=== PATIENT | male | born 1955 | race Caucasian/White ===

== ENCOUNTER 2019-04-03 19:37 | Inpatient (IN) | payer SELFPAY ==
--- OUTSIDE RECORDS SUMMARY | 2019-04-03 19:40 | XMS REPORT ---
:1955 [facility] Organization [facility] Address [address] [place] [address] [address] [place] [address] Care Team Providers Name Role Phone Unavailable Unavailable Unavailable Problems This patient has no known problems. Allergies, Adverse Reactions, Alerts This patient has no known allergies or adverse reactions. Medications This patient has no known medications.
[2019-04-03] MEDS ORDERED: MORPHINE 4 MG/ML SYR ONE (20:32)
[2019-04-03] MEDS ORDERED: NA CHLORIDE 0.9% 500 ML ONE (20:32)
[2019-04-03 22:02] LABS: Absolute Lymphocytes (CBC) 0.8 K/uL (0.7-4.9); Basophils % 0.5 % (0-1.3); Hematocrit 32.8 % (39.6-49.0); Lymphocytes % 8.5 % (15.3-44.8); MPV 10.7 fL (7.6-11.3)
--- NOTE | 2019-04-03 22:02 | EDPHYS ---
Physician Documentation [facility] Name: Mumtaz Anderson Age: 64 yrs Sex: Male : 1955 Arrival Date: 04/03/2019 Time: 19:40 Bed 17 Private MD: ED Physician Homer Dang HPI: 04/03 20:25 This 64 yrs old Male presents to ER via Wheelchair with complaints of Leg cp Injury, Hip Injury. 20:25 The patient presents with decreased range of motion, an injury, pain, that is acute. cp The complaints affect the pelvis and left hip. Context: The problem was sustained at home, resulted from the patient falling, the patient is not able to bear weight, uses a walker, Problem is a result from a previous injury: No. Onset: The symptoms/episode began/occurred yesterday. Associated signs and symptoms: Pertinent negatives numbness, LOC. Patient reports he lost his balance while using his walker yesterday. Now having left hip pain and unable to bear weight. Historical: - Allergies: 19:53 "nexia d"; aj1 - Home Meds: 19:53 Patient is not currently taking any of his medications [Active]; aj1 - PMHx: 19:53 Diabetes - NIDDM; Hyperlipidemia; Myocardial infarction; aj1 - Immunization history:: Flu vaccine is not up to date. - Social history:: Smoking status: Patient uses tobacco products, smokes three packs cigarettes per day. - Ebola Screening: : Patient denies travel to an Ebola-affected area in the 21 days before illness onset. ROS: 20:30 Constitutional: Negative for body aches, chills, fever, poor PO intake. cp 20:30 Eyes: Negative for injury, pain, redness, and discharge. cp 20:30 ENT: Negative for drainage from ear(s), ear pain, sore throat, difficulty swallowing, difficulty handling secretions. 20:30 Cardiovascular: Negative for chest pain, palpitations. 20:30 Respiratory: Negative for cough, shortness of breath, wheezing. 20:30 Abdomen/GI: Negative for abdominal pain, nausea, vomiting, and diarrhea. 20:30 Back: Negative for pain at rest, pain with movement. 20:30 MS/extremity: Positive for decreased range of motion, pain, tenderness, of the left hip, Negative for deformity, paresthesias. 20:30 Skin: Negative for rash. 20:30 Neuro: Negative for altered mental status, dizziness, headache, numbness, syncope, weakness. 20:30 All other systems are negative. Exam: 20:35 Constitutional: The patient appears in no acute distress, alert, awake, cp non-diaphoretic, non-toxic, well developed, well nourished. 20:35 Head/Face: Normocephalic, atraumatic. cp 20:35 Eyes: Periorbital structures: appear normal, Pupils: equal, round, and reactive to light and accomodation, Extraocular movements: intact throughout, Conjunctiva: normal, no exudate, no injection, Sclera: no appreciated abnormality, Lids and lashes: appear normal, bilaterally. 20:35 ENT: External ear(s): are unremarkable, Nose: is normal, Mouth: is normal, Posterior pharynx: is normal, airway is patent, no erythema, no exudate. 20:35 Neck: C-spine: vertebral tenderness, is not appreciated, crepitus, is not appreciated, ROM/movement: is normal, is supple, without pain, no range of motions limitations, no nuchal rigidity. 20:35 Chest/axilla: Inspection: normal, Palpation: is normal, no crepitus, no tenderness. 20:35 Cardiovascular: Rate: normal, Rhythm: regular, Pulses: Pulses are 2+ in right radial artery, right dorsalis pedis artery, left radial artery and left dorsalis pedis artery. Edema: is not appreciated, JVD: is not appreciated. 20:35 Respiratory: the patient does not display signs of respiratory distress, Respirations: normal, no use of accessory muscles, no retractions, no splinting, no tachypnea, labored breathing, is not present, Breath sounds: are clear throughout, no decreased breath sounds, no stridor, no wheezing. 20:35 Abdomen/GI: Inspection: abdomen appears normal, Bowel sounds: active, all quadrants, Palpation: abdomen is soft and non-tender, in all quadrants, rebound tenderness, is not appreciated, voluntary guarding, is not appreciated, involuntary guarding, is not appreciated. 20:35 Back: pain, is absent, vertebral tenderness, is not appreciated. 20:35 Musculoskeletal/extremity: ROM: limited passive range of motion due to pain, in the left hip, Joints: All joints are normal except the left hip displays painful range of motion, tenderness. 20:35 Skin: no rash present. 20:35 Neuro: Orientation: to person, place \\T\\ time. Mentation: is normal, Cerebellar function: is grossly normal, Motor: moves all fours, strength is normal, Sensation: is normal. 21:45 ECG was reviewed by the Attending Physician. cp Vital Signs: 19:53 BP 132 / 68; Pulse 96; Resp 18; Temp 98.9; Pulse Ox 99% on R/A; Weight 68.04 kg (R); aj1 Pain 6/10; 20:40 BP 142 / 89; Pulse 89; Resp 18; Pulse Ox 99% ; wh 22:01 BP 140 / 108; Pulse 81; Resp 18; Pulse Ox 99% ; wh 23:00 BP 129 / 73; Pulse 82; Resp 18; Pulse Ox 99% on R/A; wh MDM: 20:00 Patient medically screened. cp 21:20 Data reviewed: vital signs, nurses notes, radiologic studies, plain films. cp 21:20 Differential diagnosis: dislocation, closed fracture, contusion, multiple trauma. Test cp interpretation: by ED physician or midlevel provider: plain radiologic studies, xrays left hip show subcapital fracture. 21:40 Physician consultation: Matthew Michelle DO was called at 21:45, was contacted at 21:45, regarding admission, to the telemetry unit. patient's condition. 22:07 Physician consultation: Geremias Mart MD was called at 22:07, was contacted at 22:07, regarding consult, patient's condition, would like admission per Dr. Matthew Michelle DO. 04/03 21: Order name: Basic Metabolic Panel; Complete Time: 22:24 cp 04/03 22:25 Interpretation: Normal except: K 3.0; GLUC 364; CRE 1.44; GFR 50; CA 7.6. cp 04/03 21:22 Order name: CBC with Diff cp 04/03 22:16 Interpretation: Normal except: HGB 10.5; HCT 32.8; MCV 64.2; MCH 20.5; MCHC 31.9; RDW cp 16.5; BEST% 83.2; LYM% 8.5. 04/03 21: Order name: LFT's; Complete Time: 22:24 cp 04/03 21:22 Order name: Magnesium; Complete Time: 22:24 cp 04/03 21:22 Order name: NT PRO-BNP; Complete Time: 22:24 cp 04/03 22:24 Interpretation: Abnormal: NT PRO-BNP 28551. cp 04/03 21:22 Order name: PT-INR; Complete Time: 22:16 cp 20 20:18 Order name: XRAY Pelvis 04/03 20:18 Order name: XRAY Hip LEFT 2 view 04/03 21:11 Order name: Chest Single View EDME 04/03 21:22 Order name: Troponin (emerg Dept Use Only); Complete Time: 22:24 cp 04/03 22:16 Order name: XRAY Femur LEFT 04/03 23:08 Order name: CBC Smear Scan EDME 04/03 20:18 Order name: IV; Complete Time: 20:35 cp 04/03 21:22 Order name: EKG; Complete Time: 21:23 cp 04/03 21:22 Order name: Cardiac monitoring; Complete Time: 21:46 cp 04/03 21:22 Order name: EKG - Nurse/Tech; Complete Time: 21:46 cp 04/03 21:22 Order name: Labs collected and sent; Complete Time: 21:46 cp 04/03 21:22 Order name: O2 Per Protocol; Complete Time: 21:46 cp 04/03 21:22 Order name: O2 Sat Monitoring; Complete Time: 21:46 cp 04/03 21:22 Order name: Holcomb; Complete Time: 22:35 cp EC:45 Rate is 85 beats/min. Rhythm is regular. [place] interval is prolonged at 216 msec. QRS cp interval is prolonged at 148 msec. QT interval is normal. Interpreted by me. Reviewed by me. Administered Medications: 20:35 Drug: NS 0.9% 500 ml Route: IV; Rate: bolus; Site: right forearm; 21:23 Follow up: Response: No adverse reaction; IV Status: Completed infusion 20:35 Drug: morphine 4 mg {Note: RASS 0.} Route: IVP; Site: right forearm; 21:23 Follow up: Response: No adverse reaction; Pain is decreased; RASS: Alert and Calm (0) 22:48 Drug: Insulin Regular Human 10 units {Co-Signature: jb4 (Armaan Warba RN).} Route: IVP; Site: right forearm; 23:30 Follow up: Response: No adverse reaction Disposition: 04/03/19 22:01 Hospitalization ordered by Matthew Michelle for Inpatient Admission. Preliminary diagnosis is Left hip fracture. - Bed requested for Telemetry/MedSurg (Inpatient). - Status is Inpatient Admission. - Condition is Stable. - Problem is new. - Symptoms have improved. UTI on Admission? No Addendum: 04/06/2019 09:18 Co-signature as Attending Physician, Homer Dang MD I agree with the assessment and c pérez plan of care. Signatures: Dispatcher [employer] EDLianna Herrera RN RN aj1 Homer Dang MD MD cha Page, Corey, PA PA cp Lynnette Garcia RN RN AnaisgloriaLiset Armaan Rowan RN jb4 Corrections: (The following items were deleted from the chart) 04/03 22:17 22:01 Hospitalization Ordered by Matthew Michelle DO for Inpatient Admission. Preliminary cg diagnosis is Left hip fracture. Bed requested for Telemetry/MedSurg (Inpatient). Status is Inpatient Admission. Condition is Stable. Problem is new. Symptoms have improved. UTI on Admission? No. cp 22:25 22:24 Normal except: K 3.0; GLUC 364; CRE 1.44; GFR 50. cp cp 22:31 22:17 04/03/2019 22:01 Hospitalization Ordered by Matthew Michelle DO for Inpatient Admission. Preliminary diagnosis is Left hip fracture. Bed requested for Telemetry/MedSurg (Inpatient). Status is Inpatient Admission. Condition is Stable. Problem is new. Symptoms have improved. UTI on Admission? No. cg 23:36 22:31 04/03/2019 22:01 Hospitalization Ordered by Matthew Michelle DO for Inpatient Admission. Preliminary diagnosis is Left hip fracture. Bed requested for Telemetry/MedSurg (Inpatient). Status is Inpatient Admission. Condition is Stable. Problem is new. Symptoms have improved. UTI on Admission? No. cg
--- NOTE | 2019-04-03 22:02 | ER ---
Nurse's Notes [facility] Name: Mumtaz Anderson Age: 64 yrs Sex: Male : 1955 Arrival Date: 04/03/2019 Time: 19:40 Bed 17 Private MD: Diagnosis: Left hip fracture Presentation: 04/03 19:49 Presenting complaint: Patient states: He fell last night twice and landed on his left aj1 side both times. Reports pain to left hip. Reports that he hit his head on the wall. Patient does not take blood thinners. Denies LOC, vomiting. Transition of care: patient was not received from another setting of care. Onset of symptoms was March 2019. Risk Assessment: Do you want to hurt yourself or someone else? Patient reports no desire to harm self or others. Initial Sepsis Screen: Does the patient meet any 2 criteria? No. Patient's initial sepsis screen is negative. Does the patient have a suspected source of infection? No. Patient's initial sepsis screen is negative. Care prior to arrival: None. 19:49 Method Of Arrival: Wheelchair aj1 19:49 Acuity: VIDAL 3 aj1 Triage Assessment: 19:53 General: Appears in no apparent distress. uncomfortable, Behavior is calm, cooperative, aj1 appropriate for age. Pain: Complains of pain in left hip Pain currently is 6 out of 10 on a pain scale. Neuro: Level of Consciousness is awake, alert, obeys commands. Cardiovascular: Patient's skin is warm and dry. Respiratory: Airway is patent Respiratory effort is even, unlabored, Respiratory pattern is regular, symmetrical. Musculoskeletal: Range of motion: limited in left hip. Injury Description: Patient reports that he fell twice last night. Historical: - Allergies: 19:53 "nexia d"; aj1 - Home Meds: 19:53 Patient is not currently taking any of his medications [Active]; aj1 - PMHx: 19:53 Diabetes - NIDDM; Hyperlipidemia; Myocardial infarction; aj1 - Immunization history:: Flu vaccine is not up to date. - Social history:: Smoking status: Patient uses tobacco products, smokes three packs cigarettes per day. - Ebola Screening: : Patient denies travel to an Ebola-affected area in the 21 days before illness onset. Screenin:17 Abuse screen: Denies threats or abuse. Denies injuries from another. Nutritional wh screening: No deficits noted. Tuberculosis screening: No symptoms or risk factors identified. Fall Risk Fall in past 12 months (25 points). Assessment: 20:38 General: Appears in no apparent distress. Behavior is calm, cooperative, appropriate wh for age. Pain: Complains of pain in left hip Pain does not radiate. Pain currently is 10 out of 10 on a pain scale. Quality of pain is described as aching, Pain began 1 day ago. Pain: Aggravated by increased activity. Neuro: Level of Consciousness is awake, alert, obeys commands, Oriented to person, place, time, situation, Appropriate for age Transfusion Aide are equal bilaterally. Cardiovascular: Heart tones S1 S2 Capillary refill < 3 seconds. Respiratory: Airway is patent Respiratory effort is even, unlabored, Respiratory pattern is regular, symmetrical. GI: Abdomen is flat, non-distended, Bowel sounds present X 4 quads. : No signs and/or symptoms were reported regarding the genitourinary system. EENT: No signs and/or symptoms were reported regarding the EENT system. Derm: Skin is intact, is healthy with good turgor, Skin is pink, warm \\T\\ dry. normal. Musculoskeletal: Circulation, motion, and sensation intact. Range of motion: limited in left hip. 21:58 Reassessment: Patient appears in no apparent distress at this time. No changes from previously documented assessment. Patient and/or family updated on plan of care and expected duration. Pain level reassessed. Patient is alert, oriented x 3, equal unlabored respirations, skin warm/dry/pink. Notified Pt of admission orders. 23:00 Reassessment: Patient appears in no apparent distress at this time. No changes from previously documented assessment. Patient and/or family updated on plan of care and expected duration. Pain level reassessed. Patient is alert, oriented x 3, equal unlabored respirations, skin warm/dry/pink. Vital Signs: 19:53 BP 132 / 68; Pulse 96; Resp 18; Temp 98.9; Pulse Ox 99% on R/A; Weight 68.04 kg (R); aj1 Pain 6/10; 20:40 BP 142 / 89; Pulse 89; Resp 18; Pulse Ox 99% ; wh 22:01 BP 140 / 108; Pulse 81; Resp 18; Pulse Ox 99% ; wh 23:00 BP 129 / 73; Pulse 82; Resp 18; Pulse Ox 99% on R/A; ED Course: 19:40 Patient arrived in ED. cl3 19:52 Triage completed. aj1 19:53 Arm band placed on Patient placed in an exam room. aj1 19:55 Liset Valente is Primary Nurse. wh 19:56 Homer Colon PA is PHCP. cp 19:56 Homer Dang MD is Attending Physician. cp 20:17 Patient has correct armband on for positive identification. Placed in gown. Bed in low wh position. Call light in reach. Side rails up X 1. Pulse ox on. NIBP on. 20:36 Inserted saline lock: 20 gauge in right forearm, using aseptic technique. Blood wh collected. 20:57 X-ray completed. Patient tolerated procedure well. Patient moved back from radiology. 1 20:58 XRAY Pelvis In Process Unspecified. EDMS 20:58 XRAY Hip LEFT 2 view In Process Unspecified. EDMS 21:28 Chest Single View In Process Unspecified. EDMS 21:58 Matthew Michelle DO is Hospitalizing Provider. cp 23:00 Holcomb cath inserted, using sterile technique, 18 Fr., by ok, balloon inflated, to gravity drainage. 23:34 No provider procedures requiring assistance completed. Patient admitted, IV remains in place. Administered Medications: 20:35 Drug: NS 0.9% 500 ml Route: IV; Rate: bolus; Site: right forearm; 21:23 Follow up: Response: No adverse reaction; IV Status: Completed infusion 20:35 Drug: morphine 4 mg {Note: RASS 0.} Route: IVP; Site: right forearm; 21:23 Follow up: Response: No adverse reaction; Pain is decreased; RASS: Alert and Calm (0) 22:48 Drug: Insulin Regular Human 10 units {Co-Signature: jb4 (Armaan Rowan RN).} Route: IVP; Site: right forearm; 23:30 Follow up: Response: No adverse reaction Outcome: 22:01 Decision to Hospitalize by Provider. cp 23:35 Admitted to Med/surg accompanied by tech, family with patient, via stretcher, room 206, with chart, Report called to Ting Pruett RN 23:35 Condition: good 23:35 Instructed on the need for admit. 23:36 Patient left the ED. Signatures: Dispatcher [employer] Lianna Gonzalez RN RN aj1 Torri Mondragon mh1 Homer Colon PA PA cp Habalo, Winsy wh Lewis, Charde cl3 Armaan Rowan RN jb4
[2019-04-03 22:03] LABS: Protime INR 0.91
[2019-04-03 22:16] LABS: ALT/SGPT 12 U/L (12-78); AST/SGOT 14 U/L (15-37); Albumin 1.5 g/dL (3.4-5.0); Alkaline Phosphatase 78 U/L (45-117); BUN Blood Urea Nitrogen 18 mg/dL (7-18); Bicarbonate 28 mmol/L (21-32); Bilirubin Direct < 0.1 mg/dL (0-0.2); Bilirubin Total 0.2 mg/dL (0.2-1.0); Glucose Level 364 mg/dL (74-106); NT PRO-BNP 15025 pg/mL (<125); Protein, Total 5.1 g/dL (6.4-8.2); Sodium Level 136 mmol/L (136-145); Troponin (Emerg Dept Use Only) 0.03 ng/mL (0.0-0.045)
--- NOTE | 2019-04-03 22:16 | P.HP ---
Certification for Inpatient Patient admitted to: Inpatient With expected LOS: >2 Midnights Patient will require the following post-hospital care: Rehabilitation Practitioner: I am a practitioner with admitting privileges, knowledge of patient current condition, hospital course, and medical plan of care. Services: Services provided to patient in accordance with Admission requirements found in Title 42 Section 412.3 of the Code of Federal Regulations Patient History Date of Service: 04/03/19 Primary Care Provider: None Reason for admission: Fall with left hip pain History of Present Illness: 64-year-old male presented to the emergency room after a fall and left hip pain. Patient with history of CAD, hypertension, diabetes mellitus type 2 insulin dependent, tobacco abuse, hyperlipidemia, and COPD. Patient reports that he fell twice yesterday. This is after he got dizzy and lost his balance. He fell to the ground and got up. He primarily uses a walker to get around. Today he fell again. He had extreme pain to the left hip. He came to the ER for further evaluation. In the ER patient evaluated. X-ray revealed left subcapital hip fracture. Lab- CMP, CBC pending at this time. Patient was admitted for further evaluation and treatment. When I saw the patient ER, pain improved with medication. Patient with history of CAD. Son reports that he was evaluated at [facility] last year. He was told that he had CAD and that would require stenting or cardiac bypass. It appears that the patient never followed up. No procedure was done. Patient admits not taking his medication. Patient is supposed to be taking aspirin, Plavix, Lipitor, carvedilol, Lasix, and lisinopril. He does take some insulin from time to time. He has not followed up with a PCP. Patient still smokes about 2 packs per day. Allergies "nexia d" Allergy (Uncoded 10/23/16 02:05) Unknown Home medications list reviewed: Yes Home Medications: Glyburide 1 tab PO DAILY 11/04/16 Metformin ER [Glucophage ER] 500 mg PO DAILY 11/04/16 Amlodipine [Norvasc*] 5 mg PO DAILY #30 tab 11/08/16 Glyburide/Metformin HCl [Glucovance 5-500 mg Tablet] 1 each PO BID #60 tablet NaCl 0.9% Irr Soln [Sodium Chloride] 0 ml IRR DAILY #1 btl 11/10/16 - Past Medical/Surgical History Diabetic: Yes -: Diabetes mellitus type 2, insulin-dependent -: CAD -: Hypertension -: Hyperlipidemia -: COPD -: Tobacco abuse -: Knee surgery -: I&D lower right buttock -: hiatal hernia repair -: I and D to the left foot Psychosocial/ Personal History: Patient is single. He lives with his son. - Family History Father -: Heart disease, Hypertension, Lung disease, GI disease, Diabetes, Cancer, Other (see notes) Notes: parkinson's disease Mother -: Heart disease, Hypertension, Diabetes, Cancer Sister -: Cancer - Social History Smoking Status: Heavy Tobacco smoker (>10 cigarettes/day) Counseled patient to stop smoking for: less than 10 minutes Smoking therapy provided: Yes Patient receptive to therapy: No Alcohol use: No CD- Drugs: No Caffeine use: Yes Place of Residence: Home Review of Systems General: As per HPI Eyes: Unremarkable ENT: Unremarkable Respiratory: Unremarkable Cardiovascular: Light Headedness, As per HPI Gastrointestinal: Unremarkable Genitourinary: Unremarkable Musculoskeletal: As per HPI Integumentary: Unremarkable Neurological: Unremarkable Lymphatics: Unremarkable Physical Examination - Physical Exam General: Alert, In no apparent distress, Oriented x3, Cooperative HEENT: Atraumatic, Normocephalic, PERRLA, Mucous membr. moist/pink Neck: Supple, No Thyromegaly Respiratory: Clear to auscultation bilaterally, Normal air movement Cardiovascular: Normal pulses, Regular rate/rhythm Gastrointestinal: Normal bowel sounds, Soft and benign, Non-distended, No ascites, No tenderness, No masses, No rebound, No guarding Musculoskeletal: No warmth, Other (Pain to the left hip region but stable, leg externally rotated) Neurological: Normal speech, Normal strength at 5/5 x4 extr, Normal tone, Normal affect Assessment and Plan - Plan Impression: Fall leading to left subcapital femur fracture CAD Hypertension Diabetes mellitus type 2, insulin-dependent Hyperlipidemia COPD Tobacco abuse Noncompliance with medication and follow up Plan: Fall leading to left subcapital femur fracture: Patient will be admitted for further evaluation and treatment. Orthopedic consulted to further treat. Patient will require surgical intervention. Will consult cardiology for cardiac clearance. Will provide medication for pain. Will DVT prophylaxis tonight as the patient will likely have surgery tomorrow. Will also hold his aspirin and Plavix in preparation for surgery tomorrow. Will keep the patient NPO after midnight. Advanced directives addressed in detail with patient and son present. Patient is DNR. Patient will likely require rehab after surgery. Daytime hospitalist to continue his care. Anticipate discharge to rehab in the next 5-7 days. CAD: Patient reports history of CAD. He was told in the past that the patient would require cardiac intervention. Workup done at [facility] over a year ago. Will obtain more information from [facility]. Cardiology consulted for cardiac clearance. Hypertension: Patient non compliant with his medication. Will restart carvedilol 12.5 mg 1 pill twice daily and lisinopril 5 mg daily. Will monitor and adjust appropriately. Diabetes mellitus type 2, insulin-dependent: Will check A1c. Will provide insulin sliding scale and monitor Accu-Cheks. Hyperlipidemia: Restart home medication of Lipitor 80 mg daily. COPD: Patient likely has COPD. Will start COPD medication-Brovana/albuterol/ Atrovent. Maintain sats above 93%. Tobacco abuse: Tobacco cessation addressed in detail. Patient does not plan to quit. Provide nicotine patch. Noncompliance with medication and follow up: Patient will need to establish care with a PCP after discharge. Compliance with medication addressed in detail. Discharge Plan: Other (Inpatient rehab) Plan to discharge in: Greater than 2 days - Advance Directives Does patient have a Living Will: No Does patient have a Durable POA for Healthcare: No - Code Status/Comfort Care Code Status Assessed: Yes (Patient is do not resuscitate. Son aware of patient wishes) Time Spent Managing Pts Care (In Minutes): 55
[2019-04-03] MEDS ORDERED: INSULIN -REGULAR HUMAN 50 UNIT/0.5 ML ML ONE (22:47)
[2019-04-03 23:07] LABS: Blood Morphology Comment NOTED (NOT SEEN); Hypochromasia 1+; Platelet Estimate ADEQ; Urine White Blood Cell Casts OK
[2019-04-03] MEDS ORDERED: ALBUTEROL 2.5 MG/3 ML NEB SOL NEB PRN (23:20)
[2019-04-03] MEDS ORDERED: HYDROCODONE/APAP 7.5/325 MG TAB PO PRN (23:20)
[2019-04-03] MEDS ORDERED: ACETAMINOPHEN 500 MG TAB PO PRN (23:20)
[2019-04-03 23:52] VITALS: BMI 20.7
[2019-04-04] MEDS: NICOTINE 21 MG/PAT TD SCH ×2 (00:16→08:49)
[2019-04-04 01:27] LABS: Urine Appearance CLOUDY; Urine Blood 2+ (NEG); Urine Color DK YELLOW; Urine Glucose 3+ (NEG); Urine Protein 3+ (NEG); Urine Specific Gravity >=1.030 (1.005-1.030); Urine Urobilinogen 0.2 mg/dL (0.2-1.0)
[2019-04-04 01:35] LABS: Urine Microscopic Reflex ORDER UMIC
[2019-04-04 01:38] LABS: Urine Bilirubin NEGATIVE (NEG)
[2019-04-04 03:36] LABS: Urine Bacteria >50 /HPF (NONE SEEN); Urine Culture Reflex Order REFLEXED
[2019-04-04] MEDS: ONDANSETRON 4 MG/2 ML VIAL IV PRN (05:00)
[2019-04-04] MEDS: CARVEDILOL 12.5 MG TAB PO SCH ×2 (05:34→17:28)
[2019-04-04] MEDS: MORPHINE 2 MG/ML SYR IV PRN (05:34)
[2019-04-04 05:53] LABS: Absolute Lymphocytes (CBC) 1.2 K/uL (0.7-4.9); Basophils % 0.7 % (0-1.3); Hematocrit 30.9 % (39.6-49.0); Lymphocytes % 14.6 % (15.3-44.8); MPV 9.6 fL (7.6-11.3); RBC Red Blood Cell Count 4.92 M/uL (4.33-5.43)
[2019-04-04 06:49] LABS: Ferritin 1426.5 ng/mL (26-388); Magnesium 1.9 mg/dL (1.8-2.4); Thyroid Stimulating Hormone 2.78 uIU/mL (0.360-3.740)
[2019-04-04 07:00] LABS: Potassium 2.8 mmol/L (3.5-5.1)
[2019-04-04] MEDS: ARFORMOTEROL TARTRATE 15 MCG/2 ML VIAL.NEB NEB SCH ×2 (07:35→20:05)
[2019-04-04] MEDS: LISINOPRIL 5 MG TAB PO SCH (08:23)
[2019-04-04] MEDS: FAMOTIDINE 20 MG TAB PO SCH ×2 (08:23→21:42)
[2019-04-04] MEDS: FUROSEMIDE 20 MG TABLET PO SCH (08:23)
[2019-04-04] MEDS ORDERED: NA CHLORIDE 0.9% 250 ML ONE (08:37)
[2019-04-04] MEDS: KCL 20 MEQ/100 mL IVPB 20 MEQ/100 ML BAG IV SCH ×3 (08:48→12:40)
[2019-04-04] MEDS: INSULIN -REGULAR HUMAN 50 UNIT/0.5 ML ML SQ SCH ×4 (08:49→21:42)
--- NOTE | 2019-04-04 11:03 | CON ---
Reason For Consultation: Left femoral neck fracture. History Of Present Illness: Mr. Anderson is a 64-year-old gentleman, walker dependent, heavy smoker, h istory of alcohol abuse, BMI of 20, sustained a fall, mechanical fall, left femoral neck fracture res ulting, we are asked to see him for this injury. He is currently listed as a DNR. He arrived in the emergency room last night with the described injury. His potassium was 2.8. Past Medical History: Significant for history of alcohol abuse. Current tobacco abuse. Allergies: HIS IS ALLERGIC TO . Past Medical History: He is a type 2 diabetic. He apparently has some baseline liver disease. He is currently a do not resuscitate. Physical Examination: General: He is thin, cachectic, alert and oriented x3. Complains of pain only in the left hip. Extremities: Exam reveals the hip to be shortened and painful with any attempt of motion. Appears t o be neurovascular intact although some neuropathic changes distally. X-rays reveal a valgus impacted left femoral neck fracture. Plan: Will be to proceed with left hip hemiarthroplasty after medical correction today. He will be n.p.o. past midnight. LATIA/ERLIN Voice ID: [id number] Report ID: [id number]
--- NOTE | 2019-04-04 11:38 | RAD REPORT ---
EXAM DESCRIPTION: RAD - Femur Left - 04/03/2019 10:43 pm CLINICAL HISTORY: fall;Pain COMPARISON: None FINDINGS: AP pelvis, left hip and left femur- multiple projections submitted Subcapital fracture the proximal left femur is seen with mild impaction. No dislocation seen. Promine nt osteoarthritis of the left knee is present with a single screw noted lateral femoral condyle.
--- NOTE | 2019-04-04 11:42 | RAD REPORT ---
EXAM DESCRIPTION: RAD - Chest Single View - 04/03/2019 9:26 pm CLINICAL HISTORY: FALL Chest pain. COMPARISON: Chest Single View dated 11/03/2016; CHEST SINGLE VIEW dated 01/31/2008 FINDINGS: Portable technique limits examination quality. The lungs are emphysematous but grossly clear. The heart is normal in size. No displaced fractures. IMPRESSION: No acute intrathoracic process suspected.
--- NOTE | 2019-04-04 14:15 | EKG ---
Test Date: 2019-04-03 Test Time: 21:40:50 Strawhat Sizer: AZRA MEASUREMENT RESULTS: Intervals: Rate: 85 ND: 216 QRSD: 148 QT: 416 QTc: 495 [place]: P: 66 ND: 216 QRS: -36 T: 190 INTERPRETIVE STATEMENTS: Sinus rhythm with 1st degree AV block with frequent premature ventricular complexes Left axis deviation Left bundle branch block Abnormal ECG Compared to ECG 11/03/2016 17:55:24 First degree AV block now present Left bundle-branch block now present Left ventricular hypertrophy no longer present Myocardial infarct finding no longer present ST (T wave) deviation no longer present Possible ischemia no longer present Electronically Signed On 04-04-19 14:13:28 CDT by Martin Reyes
--- NOTE | 2019-04-04 15:33 | PN ---
Date of Progress Note: 04/04/2019 Patient is seen and examined, chart reviewed, and case discussed with RN. Patient is awaiting cardiac clearance prior to surgery. Medication List: Reviewed. Physical Examination: Vital Signs: Temperature 98.1, heart rate 85, blood pressure 184/86, respirations 18, O2 96% on room air. General: Awake, alert, oriented x3. Does not appear to be in any acute distress unless moving his left lower extremity. CV: S1, S2. Regular rate and rhythm. Peripheral pulses are weak bilaterally. Respiratory: Moving air well bilaterally. No wheezing or stridor. No use of accessory muscles. Gastrointestinal: Abdomen is soft, nontender, nondistended. Positive bowel sounds. Extremities: No clubbing, cyanosis, or edema. Musculoskeletal: Left lower extremity shortened, rotated. Mild tenderness to palpation. Decreased range of motion. Neurologic: Nonfocal. Sensation is intact to light touch. Cranial nerves 2 through 12 intact grossly. Normal speech. Laboratory Data: Sodium 141, potassium 2.8, chloride 105, CO2 of 30, BUN 19, creatinine 1.19, glucose 147. Hemoglobin A1c is pending. Calcium 7.7, magnesium 1.9. Iron 24, TIBC 137, transferrin 98, ferritin 1426. WBC 8.1, H and H 10.1 and 30.9, platelets 215. Assessment And Plan: 1. Status post fall. 2. Left subcapital femur fracture, non displaced, nitial encounter. Plan is for surgery after cardiac clearance. Patient has multiple comorbid conditions including heart disease, hypertension, diabetes, hyperlipidemia, chronic obstructive pulmonary disease, nicotine dependence, was supposed to undergo cardiac intervention over a year ago. Appreciate Dr. Adkins and Dr. Elizabeth' input. 3. Coronary artery disease, [place] artery and [place] heart without angina. Awaiting cardiac clearance. We will continue with Coreg and lisinopril. 4. Essential hypertension. Resume home medications as appropriate. 5. Diabetes mellitus type 2, insulin dependent. We will check hemoglobin A1c. Monitor blood glucose levels and continue sliding scale insulin. 6. Hyperlipidemia. Continue Lipitor. 7. Chronic obstructive pulmonary disease. Continue nebulizer treatments as needed. Supplemental oxygen to maintain systolic oxygen saturations above 93%. 8. Nicotine dependence with cigarette smoking continuous. The patient is counseled. 9. Noncompliance. Counseled deep vein thrombosis prophylaxis. No chemical anticoagulation due to anticipated procedure. 10. Disposition. Will likely need rehab post surgery. /ERLIN Voice ID: [id number] Report ID: [id number] MTDD
[2019-04-04] MEDS ORDERED: POTASSIUM CL SA 10 MEQ TAB PO ONE (17:32)
[2019-04-04] MEDS: TRAMADOL HCL 50 MG TAB PO PRN (19:42)
[2019-04-04] MEDS: ATORVASTATIN 80 MG TAB PO SCH (21:42)
[2019-04-04] MEDS: ENOXAPARIN 40 MG/0.4 ML SQ SCH (21:42)
[2019-04-05] MEDS: HYDRALAZINE HCL 20 MG/ML VIAL IV PRN (01:31)
[2019-04-05] MEDS: CARVEDILOL 12.5 MG TAB PO SCH ×2 (04:40→17:38)
[2019-04-05] MEDS: MORPHINE 2 MG/ML SYR IV PRN (06:05)
[2019-04-05 06:22] LABS: Absolute Lymphocytes (CBC) 1.1 K/uL (0.7-4.9); Basophils % 0.8 % (0-1.3); Lymphocytes % 11.2 % (15.3-44.8); MPV 10.2 fL (7.6-11.3); RBC Red Blood Cell Count 4.88 M/uL (4.33-5.43)
[2019-04-05 06:23] LABS: Magnesium 2.2 mg/dL (1.8-2.4); Potassium 3.7 mmol/L (3.5-5.1)
[2019-04-05] MEDS: ARFORMOTEROL TARTRATE 15 MCG/2 ML VIAL.NEB NEB SCH ×3 (06:25→20:20)
[2019-04-05] MEDS ORDERED: FENTANYL CITR 100 MCG/2 ML ONE (07:22)
[2019-04-05] MEDS ORDERED: PROPOFOL 200 MG/20 ML VIAL IV ONE (07:22)
[2019-04-05] MEDS ORDERED: LIDOCAINE 2% MPF 5 ML VIAL ONE (07:22)
[2019-04-05] MEDS ORDERED: Phenylephrine HCl 10 MG/ML 1 ML VIAL ONE (07:23)
[2019-04-05] MEDS: FUROSEMIDE 20 MG TABLET PO SCH (09:00)
[2019-04-05] MEDS ORDERED: KCL 20 MEQ/100 mL IVPB 20 MEQ/100 ML BAG IV SCH (09:00)
[2019-04-05] MEDS: LISINOPRIL 5 MG TAB PO SCH (09:00)
[2019-04-05] MEDS: FAMOTIDINE 20 MG TAB PO SCH ×2 (09:00→21:24)
[2019-04-05] MEDS: ENOXAPARIN 40 MG/0.4 ML SQ SCH (09:00)
[2019-04-05] MEDS: NICOTINE 21 MG/PAT TD SCH (09:54)
[2019-04-05] MEDS: INSULIN -REGULAR HUMAN 50 UNIT/0.5 ML ML SQ SCH ×4 (09:55→21:24)
[2019-04-05] MEDS ORDERED: ROCURONIUM 50 MG/5 ML VIAL IV ONE (09:55)
[2019-04-05] MEDS ORDERED: NITROGLYCERIN 0.4 MG/TAB SL PRN (10:16)
[2019-04-05] MEDS ORDERED: TRANEXAMIC ACID 1,000 MG in NA CHLORIDE 0.9% 50 ML IV ONE ×4 (11:00)
[2019-04-05] MEDS ORDERED: NITROGLYCERIN/D5W 50 MG/250 ML BTL IV SCH (11:00)
[2019-04-05] MEDS ORDERED: KETAMINE HCL 500 MG/5 ML VIAL ONE (11:01)
[2019-04-05] MEDS ORDERED: NA CHLORIDE 0.9% 1,000 ML ONE (11:02)
--- NOTE | 2019-04-05 11:10 | PN ---
Date of Progress Note: 04/05/2019 Subjective: Patient seen and examined. Chart reviewed and case discussed with RN and Dr. Chanda iqbal s well as Dr. Reyes. The patient has been cleared for surgery from cardiac standpoint. Medications: List reviewed. Physical Examination: Vital Signs: Temperature 97.4, heart rate 78, blood pressure 175/87, respirations 18, O2 at 96% on r oom air. General: Awake, alert and oriented x3. No acute distress. Pain, no signs of acute pain. CV: S1, S2. Respiratory: Moving air well bilaterally. No wheezing. Gastrointestinal: Abdomen is soft, nontender, nondistended. Positive bowel sounds. Extremities: No clubbing, cyanosis, or edema. Neurologic: Nonfocal. Musculoskeletal: Left lower extremity shortened, rotated. Laboratory Data: Sodium 136, potassium 3.7, chloride 103, CO2 of 25, BUN 20, creatinine 0.97, glucos e 188, calcium 8.1, magnesium 2.2. WBC 10, H and H 10.2 and 31, platelets 247, neutrophils 76%. Uri ne culture, no growth to date. Assessment And Plan: A 64-year-old male with: 1.Status post fall. 2.Left subcapital femur fracture nondisplaced on initial encounter. Patient has been cleared from C ardiology standpoint. We will continue with pain control. I spoke with Dr. Armas. The patient i s cleared for surgery. We will monitor in ICU postoperatively. 3.Coronary artery disease, [place] artery and [place] heart without angina. Appreciate Dr. Reyes's input. Continue with Coreg and lisinopril. 4.Essential hypertension stable. Continue home medications. 5.Diabetes mellitus type 2, insulin dependent. Hemoglobin A1c is pending. We will monitor blood gl ucose levels and continue on sliding scale insulin. 6.Mixed hyperlipidemia. Continue Lipitor. 7.Chronic obstructive pulmonary disease, chronic bronchitis. Continue supplemental oxygen, to keep O2 sats above 93%. Continue nebulizer treatments as needed. 8.Nicotine dependence with cigarette smoking continuous counseled. 9.Noncompliance with medical treatment. The patient was not taking any medications at home. Plan: Anticipate surgery. Transfer to ICU postoperatively. SA/MODL Voice ID: [id number] Report ID: [id number]
[2019-04-05] MEDS ORDERED: CEFAZOLIN SODIUM 1 GM/VIAL ONE (11:36)
[2019-04-05] MEDS ORDERED: dexAMETHasone 10 MG/ML VIAL ONE (12:08)
[2019-04-05] MEDS ORDERED: ONDANSETRON 4 MG/2 ML VIAL ONE ×2 (12:08→13:18)
[2019-04-05] MEDS ORDERED: KETOROLAC 30 MG/ML INJ ONE (12:42)
[2019-04-05] MEDS: MORPHINE 4 MG/ML SYR ONE ×4 (13:13→13:31)
--- NOTE | 2019-04-05 13:20 | EKG ---
Test Date: 2019-04-05 Test Time: 13:08:39 Drip Pumper: JOSEE MEASUREMENT RESULTS: Intervals: Rate: 98 [place]: 190 QRSD: 142 QT: 404 QTc: 515 [place]: P: 76 MI: 190 QRS: -36 T: 128 INTERPRETIVE STATEMENTS: Normal sinus rhythm Left axis deviation Left bundle branch block Abnormal ECG Compared to ECG 04/03/2019 21:40:50 Ventricular premature complex(es) no longer present First degree AV block no longer present Electronically Signed On 04-05-19 13:18:42 CDT by Martin Reyes
[2019-04-05] MEDS ORDERED: MORPHINE 4 MG/ML SYR ONE (13:40)
[2019-04-05] MEDS: NACHLORIDE 0.45% 1,000 ML IV SCH (14:18)
--- NOTE | 2019-04-05 14:43 | RAD REPORT ---
EXAM DESCRIPTION: RAD - Pelvis - 04/05/2019 1:28 pm CLINICAL HISTORY: Left hip fracture repair COMPARISON: April 03 TECHNIQUE: AP imaging of the pelvis was obtained. FINDINGS: Left-sided bipolar prosthesis has been placed. No suspicious or unexpected bone or hardwar e finding. Drain tube is in place just deep to the skin staple line. IMPRESSION: Left bipolar prosthesis placement as detailed.
[2019-04-05] MEDS: CEFAZOLIN/SWI 1gm 1 GM/10 ML SYR IVP SCH (17:15)
[2019-04-05] MEDS ORDERED: NA CHLORIDE 0.9% 500 ML IV ONE ×2 (18:00→21:39)
[2019-04-05] MEDS: ATORVASTATIN 80 MG TAB PO SCH (21:24)
--- NOTE | 2019-04-05 23:16 | OP ---
Surgeon: Geremias Armas MD Broadcast Engineer: assistant professor of theater, Fiona. Preoperative Diagnosis: Left hip femoral neck fracture. Postoperative Diagnosis: Left hip femoral neck fracture. Procedure Performed: Left hip hemiarthroplasty. Complications: None. Disposition: Recovery room in stable. Operative Report In Detail: Patient was taken to the operative suite, placed in supine position, ind uced anesthesia. Left hip was prepped and draped in sterile fashion left side up. Posterior approac h to the hip was utilized. External rotators were tagged for later reattachment. The fractured femo ral neck was delivered. Osteotomized 1 fingerbreadth above the lesser trochanter. Hemostasis was ve rified. A 51 ball was delivered. The ligamentum teres was harvested. Canal reamed and broached. A 16 porous ingrowth stem trial off the stem revealed a +6 offset. Permanent implants were then place d. A layered closure was performed including repair of external rotators through drill holes in bone . Patient tolerated the procedure well and is being and should be reversing from anesthesia at the t rob of this dictation. LATIA/ERLIN Voice ID: [id number] Report ID: [id number]
[2019-04-06] MEDS: CEFAZOLIN/SWI 1gm 1 GM/10 ML SYR IVP SCH (01:02)
[2019-04-06] MEDS: NACHLORIDE 0.45% 1,000 ML IV SCH ×3 (01:30→21:14)
[2019-04-06] MEDS: MORPHINE 2 MG/ML SYR IV PRN ×2 (04:04→11:24)
[2019-04-06 05:31] LABS: Basophils % 0.2 % (0-1.3); Lymphocytes % 8.4 % (15.3-44.8); MPV 9.5 fL (7.6-11.3); RBC Red Blood Cell Count 4.76 M/uL (4.33-5.43)
[2019-04-06 05:39] LABS: Magnesium 2.1 mg/dL (1.8-2.4); Potassium 4.1 mmol/L (3.5-5.1)
[2019-04-06] MEDS: CARVEDILOL 12.5 MG TAB PO SCH ×2 (05:41→17:25)
[2019-04-06] MEDS ORDERED: NA CHLORIDE 0.9% 1,000 ML IV ONE (08:08)
[2019-04-06] MEDS: ARFORMOTEROL TARTRATE 15 MCG/2 ML VIAL.NEB NEB SCH ×2 (08:10→20:00)
[2019-04-06] MEDS: IPRATROPIUM BROM 0.5MG/2.5ML NEB PRN (08:10)
[2019-04-06] MEDS: INSULIN -REGULAR HUMAN 50 UNIT/0.5 ML ML SQ SCH ×4 (08:19→21:14)
[2019-04-06] MEDS: ENOXAPARIN 40 MG/0.4 ML SQ SCH (08:19)
[2019-04-06] MEDS: LISINOPRIL 5 MG TAB PO SCH (08:20)
[2019-04-06] MEDS: FAMOTIDINE 20 MG TAB PO SCH ×2 (08:20→21:14)
[2019-04-06] MEDS: NICOTINE 21 MG/PAT TD SCH (08:20)
[2019-04-06] MEDS: FUROSEMIDE 20 MG TABLET PO SCH (08:20)
[2019-04-06] MEDS: ONDANSETRON 4 MG/2 ML VIAL IV PRN (08:21)
--- NOTE | 2019-04-06 08:31 | CON ---
Date of Consultation: 04/04/[address] Kohli's service on 04/03/2004. I saw the patient on 04/04/2019. Reason For Consultation: Cardiac clearance for left proximal femur subcapital fracture. History Of Present Illness: Mr. Anderson is 64, has a history of diabetes, dyslipidemia, tobacco abuse , alcohol abuse, coronary artery disease. Apparently, had a heart catheterization about a year ago rico [place] and was offered bypass surgery and stents, but he never returned for followup. According to him, he has not had any chest pain since then, and he has taken nitroglycerin only rarely. Denie d PND, orthopnea, pedal edema, palpitations, or syncope. Allergies: NONE. Review of Systems: Negative. Social History: Positive for tobacco and alcohol. Medications: At home are none. Family History: Noncontributory. Physical Examination: General: Mr. Anderson was in no acute distress. Vital Signs: Stable. He is afebrile. HEENT: Negative. Neck: Supple. No bruit. Chest: Clear. Cardiac: Exam revealed a regular rhythm and rate without any murmurs, gallops, or rubs. Abdomen: Benign. Extremities: Revealed no clubbing, cyanosis, or edema. Diagnostic Data: Basically, has a hemoglobin of 10.1. His cholesterol is 241, LDL of 174. His gluc ose is 160. His potassium was 2.8 and that has been supplemented. He had a BNP of 15,025. Impression And Plan: This is a patient with documented coronary artery disease by history, it was no t on the records, surgery was recommended and he was noncompliant, but he has no symptoms. Rarely ta kes nitroglycerin. He is a do not resuscitate. He has an elevated BNP. He has dyslipidemia, diabet es that is poorly controlled. His potassium was 2.8 and that has been corrected. I think Mr. Anderson has low risk for perioperative mortality. He has no clinical evidence of congestive heart failure. He does not have any angina. His troponin is negative. He obviously needs to be on aspirin, statin and a low-dose beta-virgilio. He is to have an echocardiogram early next week, but I will go ahead a nd proceed with surgery as planned and I will continue to follow him. ANA/MODL Voice ID: [id number] Report ID: [id number]
--- NOTE | 2019-04-06 10:40 | RAD REPORT ---
EXAM DESCRIPTION: RAD - Pelvis - 04/03/2019 8:59 pm CLINICAL HISTORY: Fall;Pain COMPARISON: None FINDINGS: AP pelvis, left hip and left femur- multiple projections submitted Subcapital fracture the proximal left femur is seen with mild impaction. No dislocation seen. Promine nt osteoarthritis of the left knee is present with a single screw noted lateral femoral condyle.
--- NOTE | 2019-04-06 10:40 | RAD REPORT ---
EXAM DESCRIPTION: RAD - Hip Left 2 View - 04/03/2019 8:59 pm CLINICAL HISTORY: Fall;Pain COMPARISON: None FINDINGS: AP pelvis, left hip and left femur- multiple projections submitted Subcapital fracture the proximal left femur is seen with mild impaction. No dislocation seen. Promine nt osteoarthritis of the left knee is present with a single screw noted lateral femoral condyle.
--- NOTE | 2019-04-06 11:26 | PN ---
Date of Progress Note: 04/06/2019 Subjective: The patient was seen and examined. Chart reviewed and case discussed with RN. The adelita ent did have decreased urinary output postoperatively, otherwise, did well. He was given a bolus ove rnight. Medications: List reviewed. Physical Examination: Vital Signs: Temperature 98.8, heart rate 77, blood pressure 145/75, respirations 11, O2 at 97% on r oom air. General: Awake, alert, oriented x3. Appears older than stated age, frail, cachectic male. CV: S1, S2. Regular rate and rhythm. Peripheral pulses present. Respiratory: Moving air well bilaterally. No wheezing or stridor. Gastrointestinal: Abdomen is soft, nontender, nondistended. Positive bowel sounds. No guarding or rigidity. Extremities: No clubbing, cyanosis, or edema. No calf tenderness. Neuro: Cranial nerves 2 through 12 intact grossly. No focal neurological deficit. Speech is normal . Musculoskeletal: Left hip incision site bandaged. Drain in place. Laboratory Data: Sodium 134, potassium 4.1, chloride 101, CO2 of 25, BUN 30, creatinine 1.5, glucose 271, calcium 7.9, magnesium 2.1. WBC 12.5, H and H 9.6 and 30, platelets 254, neutrophils 81%. Uri ne cultures, no growth. X-ray of the pelvis, post repair, left bipolar prosthesis placement as santana led. Assessment And Plan: A 64-year-old male with: 1.Status post fall. 2.Left subcapital femur fracture, nondisplaced initial encounter, status post ORIF postoperative day #1. The patient did well postoperatively except for some mild oliguria. Continue with pain control , DVT prophylaxis, with Lovenox. Consult PT. Orthopedics on board. 3.Coronary artery disease, [place] artery and [place] heart without angina. Cardiology on board. The patient to continue on Coreg, lisinopril, statin, and aspirin. The patient will need outpatient [place]. 4.Essential hypertension, stable. 5.Diabetes mellitus type 2, insulin dependent. Hemoglobin A1c is 13%, not well controlled. We will adjust sliding scale insulin and monitor blood glucose levels. 6.Mixed hyperlipidemia. Continue Lipitor. 7.Chronic obstructive pulmonary disease with bronchitis, chronic. Continue supplemental oxygen. Co ntinue albuterol p.r.n. Stable. 8.Nicotine dependence with cigarette smoking, continuous, counseled. 9.Noncompliance with medical treatment. The patient had not been taking any medications at home. C urrently compliant. Plan: Will transfer out of ICU. Patient will likely benefit from inpatient rehab. We will consult social work. We will provide diabetic education. /ERLIN Voice ID: [id number] Report ID: [id number]
[2019-04-06] MEDS ORDERED: PROMETHAZINE 25 MG/ML VIAL IV PRN (12:24)
[2019-04-06] MEDS: TRAMADOL HCL 50 MG TAB PO PRN (15:00)
[2019-04-06] MEDS: ATORVASTATIN 80 MG TAB PO SCH (21:14)
[2019-04-07] MEDS: CARVEDILOL 12.5 MG TAB PO SCH (05:25)
[2019-04-07] MEDS: METOPROLOL TAR 25 MG TAB PO SCH ×2 (06:00→17:38)
[2019-04-07 06:16] LABS: Absolute Lymphocytes (CBC) 1.6 K/uL (0.7-4.9); Basophils % 0.3 % (0-1.3); Hematocrit 25.6 % (39.6-49.0); Lymphocytes % 14.9 % (15.3-44.8); RBC Red Blood Cell Count 4.08 M/uL (4.33-5.43)
[2019-04-07 06:27] LABS: Potassium 3.7 mmol/L (3.5-5.1)
[2019-04-07] MEDS: INSULIN -REGULAR HUMAN 50 UNIT/0.5 ML ML SQ SCH ×4 (07:30→22:00)
[2019-04-07] MEDS: ARFORMOTEROL TARTRATE 15 MCG/2 ML VIAL.NEB NEB SCH ×2 (07:40→20:00)
[2019-04-07] MEDS: IPRATROPIUM BROM 0.5MG/2.5ML NEB PRN (07:40)
--- NOTE | 2019-04-07 08:28 | EKG ---
Test Date: 2019-04-06 Test Time: 20:23:11 Mobile Application Tester: RT Cadet MEASUREMENT RESULTS: Intervals: Rate: 126 [place]: QRSD: 138 QT: 356 QTc: 515 [place]: P: [place]: QRS: -29 T: 150 INTERPRETIVE STATEMENTS: afib rvr Left ventricular hypertrophy with QRS widening Cannot rule out Septal infarct, age undetermined T wave abnormality, consider inferolateral ischemia Abnormal ECG Compared to ECG 04/05/2019 13:08:39 Left ventricular hypertrophy now present Sinus rhythm no longer present Left-axis deviation no longer present Left bundle-branch block no longer present Electronically Signed On 04-07-19 08:28:23 CDT by Martin Reyes
--- NOTE | 2019-04-07 08:28 | EKG ---
Test Date: 2019-04-06 Test Time: 20:45:20 Software Quality Test Engineer: RT Cadet MEASUREMENT RESULTS: Intervals: Rate: 77 [place]: 192 QRSD: 130 QT: 410 QTc: 463 [place]: P: [place]: 192 QRS: -19 T: 221 INTERPRETIVE STATEMENTS: Normal sinus rhythm Left ventricular hypertrophy with QRS widening Cannot rule out Septal infarct, age undetermined T wave abnormality, consider inferolateral ischemia Abnormal ECG Compared to ECG 04/06/2019 20:23:11 Wide-QRS tachycardia no longer present Myocardial infarct finding still present T-wave abnormality still present Possible ischemia still present Electronically Signed On 04-07-19 08:26:58 CDT by Martin Reyes
--- NOTE | 2019-04-07 08:55 | P.PN ---
Date of Service: 04/07/19 Patient had 2 episodes of atrial flutter with rapid ventricular response last night. Patient was given no new medications but was able to convert into a sinus rhythm on his own. Patient is currently on carvedilol. Will switch this over the Lopressor. Will also get an echocardiogram. Review of chart reveals patient has a history of coronary artery disease that has not gotten treatment. This will need to be further investigated going forward.
[2019-04-07] MEDS ORDERED: POTASSIUM CL SA 10 MEQ TAB PO ONE (09:00)
[2019-04-07] MEDS: TRAMADOL HCL 50 MG TAB PO PRN (09:41)
[2019-04-07] MEDS: ASPIRIN EC 81 MG TAB PO SCH (09:45)
[2019-04-07] MEDS: NICOTINE 21 MG/PAT TD SCH (09:45)
[2019-04-07] MEDS: FAMOTIDINE 20 MG TAB PO SCH ×2 (09:47→21:59)
[2019-04-07] MEDS: ENOXAPARIN 40 MG/0.4 ML SQ SCH (09:47)
[2019-04-07] MEDS: NACHLORIDE 0.45% 1,000 ML IV SCH ×3 (09:52→21:59)
--- NOTE | 2019-04-07 12:12 | P.PN ---
Subjective Date of Service: 04/07/19 Primary Care Provider: None Chief Complaint: Fall with left hip pain Subjective: No new changes The patient was seen and examined at bedside. Chart reviewed and case discussed with RN. Overnight, patient went into a flutter, which converted to sinus spontaneously. Doing well this morning, no concerns complaints this time. Review of Systems 10-point ROS is otherwise unremarkable Physical Examination - Vital Signs Temperature: 98.0 F Blood Pressure: 165/79 Pulse: 80 Respirations: 16 Pulse Ox (%): 100 - Physical Exam General: Alert, In no apparent distress, Cachectic (frail) HEENT: Atraumatic, PERRLA, EOMI Neck: Supple, JVD not distended Respiratory: Clear to auscultation bilaterally, Normal air movement Cardiovascular: Regular rate/rhythm, Normal S1 S2 Gastrointestinal: Normal bowel sounds, No tenderness Musculoskeletal: Other (Left hip incision site bandaged. Drain in place) Integumentary: No rashes Neurological: Normal speech, Normal tone, Normal affect Lymphatics: No axilla or inguinal lymphadenopathy Assessment And Plan - Plan A 64-year-old male with: Status post fall. Left subcapital femur fracture, nondisplaced initial encounter, status post ORIF postoperative day #2. The patient did well postoperatively except for some mild oliguria. Continue with pain control, DVT prophylaxis, with Lovenox. Consult PT. Orthopedics on board. Coronary artery disease, [place] artery and [place] heart without angina. Cardiology on board. The patient to continue on Coreg, lisinopril, statin, and aspirin. The patient will need outpatient workup. Atrial flutter Cardiology on board Coreg and discontinued and changed to metoprolol. Echocardiogram pending. Essential hypertension, stable. Diabetes mellitus type 2, insulin dependent. Hemoglobin A1c is 13%, not well controlled. We will adjust sliding scale insulin and monitor blood glucose levels. Mixed hyperlipidemia. Continue Lipitor. Chronic obstructive pulmonary disease with bronchitis, chronic. Continue supplemental oxygen. Continue albuterol p.r.n. Stable. Nicotine dependence with cigarette smoking, continuous, counseled. Noncompliance with medical treatment. The patient had not been taking any medications at home. Currently compliant. Plan: Patient is currently working with physical therapy. Unfortunately, patient does not have any insurance/resources and therefore will not qualify for rehab or halfway facility placement. He lives in the son at home and has neighbors that helping during the day. Patient is currently pending echo. Will anticipate discharge home in the next 24-48 hr.
[2019-04-07] MEDS: HYDRALAZINE HCL 20 MG/ML VIAL IV PRN (12:35)
[2019-04-07] MEDS: MORPHINE 2 MG/ML SYR IV PRN ×2 (12:41→18:38)
--- NOTE | 2019-04-07 12:57 | ECHO ---
HEIGHT: 6 ft 0 in WEIGHT: 153 lb 1.6 oz DATE OF STUDY: 04/07/[address]: Pritesh Seth MD 2-DIMENSIONAL: YES M.MODE: YES DOPPLER: YES COLOR FLOW: YES TDS: NO PORTABLE: NO DEFINITY: NO BUBBLE STUDY: NO DIAGNOSIS: ATRIAL FLUTTER CARDIAC HISTORY: CATHERIZATION: NO SURGERY: NO PROSTHETIC VALVE: NO PACEMAKER: NO MEASUREMENTS (cm) DIASTOLIC (NORMALS) SYSTOLIC (NORMALS) IVSd 1.4 (0.6-1.2) LA Diam 4.1 (1.9-4.0) LVEF 30% LVIDd 5.8 (3.5-5.7) LVIDs 4.9 (2.0-3.5) %FS 16% LVPWd 1.3 (0.6-1.2) Ao Diam 3.4 (2.0-3.7) 2 DIMENSIONAL ASSESSMENT: RIGHT ATRIUM: NORMAL LEFT ATRIUM: DILATED RIGHT VENTRICLE: NORMAL LEFT VENTRICLE: DILATED, LEFT VENTRICULAR HYPERTROPHY TRICUSPID VALVE: NORMAL MITRAL VALVE: NORMAL PULMONIC VALVE: NORMAL AORTIC VALVE: SCLEROSIS PERICARDIAL EFFUSION: NONE AORTIC ROOT: NORMAL LEFT VENTRICULAR WALL MOTION: SEVERE GLOBAL HYPOKINESIS. DOPPLER/COLOR FLOW: MILD MITRAL AND TRICUSPID REGURGITATION. COMMENTS: SEVERE GLOBAL HYPOKINESIS. MILD MITRAL AND TRICUSPID REGURGITATION. NO EFFUSION. LEFT VENTRICULAR HYPERTROPHY. LEFT ATRIAL ENLARGEMENT. TECHNOLOGIST: Melissa ALLEN
--- NOTE | 2019-04-07 19:28 | P.PN ---
Subjective Date of Service: 04/07/19 Primary Care Provider: None Chief Complaint: Fall with left hip pain Subjective: No new changes (s/p left hip hemiarthroplasty,) Review of Systems 10-point ROS is otherwise unremarkable Physical Examination - Vital Signs Temperature: 98.0 F Blood Pressure: 156/75 Pulse: 90 Respirations: 18 Pulse Ox (%): 98 - Physical Exam General: Oriented x3 Musculoskeletal: Other (dressing C/D/I) Assessment And Plan - Current Problems (Diagnosis) (1) S/P hip hemiarthroplasty Onset Date: ~03/22/19 Current Visit: Yes Status: Acute Plan: continue PT, transfer to rehab when safe and stable f/u in office 2 weeks post op, discharge on anticoagulation for dvt prophylaxis for 28 days. nurse to d/c drain and change dressing today. (2) History of left hip hemiarthroplasty Current Visit: Yes Status: Acute Discharge Plan: Other (rehab)
[2019-04-07] MEDS: ATORVASTATIN 80 MG TAB PO SCH (21:59)
[2019-04-08] MEDS: NACHLORIDE 0.45% 1,000 ML IV SCH ×2 (03:30→11:16)
[2019-04-08] MEDS: HYDRALAZINE HCL 20 MG/ML VIAL IV PRN (03:59)
[2019-04-08] MEDS: MORPHINE 2 MG/ML SYR IV PRN (04:46)
[2019-04-08] MEDS: METOPROLOL TAR 25 MG TAB PO SCH ×2 (05:36→17:20)
[2019-04-08 05:59] LABS: Potassium 3.8 mmol/L (3.5-5.1)
[2019-04-08] MEDS: ARFORMOTEROL TARTRATE 15 MCG/2 ML VIAL.NEB NEB SCH ×2 (07:43→20:00)
[2019-04-08] MEDS ORDERED: POTASSIUM CL SA 10 MEQ TAB PO ONE (09:00)
[2019-04-08] MEDS: INSULIN -REGULAR HUMAN 50 UNIT/0.5 ML ML SQ SCH ×4 (09:04→21:10)
[2019-04-08] MEDS: NICOTINE 21 MG/PAT TD SCH (09:06)
[2019-04-08] MEDS: ASPIRIN EC 81 MG TAB PO SCH (09:07)
[2019-04-08] MEDS: ENOXAPARIN 40 MG/0.4 ML SQ SCH (09:07)
[2019-04-08] MEDS: FAMOTIDINE 20 MG TAB PO SCH ×2 (09:07→21:12)
--- NOTE | 2019-04-08 11:45 | P.PN ---
Subjective Date of Service: 04/08/19 Primary Care Provider: None Chief Complaint: Fall with left hip pain Subjective: Improving The patient was seen and examined at bedside. Chart reviewed and case discussed with RN. Overnight, patient went into a flutter, which converted to sinus spontaneously. Doing well this morning, no concerns complaints this time. Review of Systems 10-point ROS is otherwise unremarkable Physical Examination - Vital Signs Temperature: 98.2 F Blood Pressure: 175/82 Pulse: 83 Respirations: 18 Pulse Ox (%): 97 - Physical Exam General: Alert, In no apparent distress HEENT: Atraumatic, PERRLA, EOMI Neck: Supple, JVD not distended Respiratory: Clear to auscultation bilaterally, Normal air movement Cardiovascular: Regular rate/rhythm, Normal S1 S2 Gastrointestinal: Normal bowel sounds, No tenderness Musculoskeletal: No tenderness Integumentary: No rashes Neurological: Normal speech, Normal tone, Normal affect Lymphatics: No axilla or inguinal lymphadenopathy Assessment And Plan - Plan A 64-year-old male with: Status post fall. Left subcapital femur fracture, nondisplaced initial encounter, status post ORIF postoperative day #2. The patient did well postoperatively except for some mild oliguria. Continue with pain control, DVT prophylaxis, with Lovenox. Consult PT. Orthopedics on board. Coronary artery disease, [place] artery and [place] heart without angina. Cardiology on board. The patient to continue on Coreg, lisinopril, statin, and aspirin. The patient will need outpatient workup. Atrial flutter Cardiology on board Coreg and discontinued and changed to metoprolol. Echocardiogram with 30%, global hypokinesis Essential hypertension, stable. Diabetes mellitus type 2, insulin dependent. Hemoglobin A1c is 13%, not well controlled. We will adjust sliding scale insulin and monitor blood glucose levels. Mixed hyperlipidemia. Continue Lipitor. Chronic obstructive pulmonary disease with bronchitis, chronic. Continue supplemental oxygen. Continue albuterol p.r.n. Stable. Nicotine dependence with cigarette smoking, continuous, counseled. Noncompliance with medical treatment. The patient had not been taking any medications at home. Currently compliant. Plan: Patient is currently working with physical therapy. Unfortunately, patient does not have any insurance/resources and therefore will not qualify for rehab or long term facility placement. He lives in the son at home and has neighbors that helping during the day. Patient is currently pending echo. Will anticipate discharge home in the next 24-48 hr.
[2019-04-08] MEDS: ATORVASTATIN 80 MG TAB PO SCH (21:10)
[2019-04-09 06:31] LABS: Magnesium 1.9 mg/dL (1.8-2.4); Potassium 3.9 mmol/L (3.5-5.1)
[2019-04-09] MEDS: METOPROLOL TAR 25 MG TAB PO SCH ×2 (06:32→17:30)
[2019-04-09] MEDS: IPRATROPIUM BROM 0.5MG/2.5ML NEB PRN (08:10)
[2019-04-09] MEDS: ARFORMOTEROL TARTRATE 15 MCG/2 ML VIAL.NEB NEB SCH ×2 (08:12→20:00)
[2019-04-09] MEDS: MORPHINE 2 MG/ML SYR IV PRN ×2 (10:07→15:18)
[2019-04-09] MEDS: INSULIN -REGULAR HUMAN 50 UNIT/0.5 ML ML SQ SCH ×4 (10:07→21:51)
[2019-04-09] MEDS: FUROSEMIDE 20 MG TABLET PO SCH (10:09)
[2019-04-09] MEDS: ENOXAPARIN 40 MG/0.4 ML SQ SCH (10:09)
[2019-04-09] MEDS: ASPIRIN EC 81 MG TAB PO SCH (10:09)
[2019-04-09] MEDS: NICOTINE 21 MG/PAT TD SCH (10:09)
[2019-04-09] MEDS: FAMOTIDINE 20 MG TAB PO SCH ×2 (10:10→21:50)
--- NOTE | 2019-04-09 11:25 | P.PN ---
Subjective Date of Service: 04/09/19 Primary Care Provider: None Chief Complaint: Fall with left hip pain The patient was seen and examined at bedside. Chart reviewed and case discussed with RN. Patient currently trying to work with physical therapy, unfortunately remains max assist even for transfers. Patient unable to even raise himself to a sitting position in bed. Review of Systems 10-point ROS is otherwise unremarkable Physical Examination - Vital Signs Temperature: 99.3 F Blood Pressure: 175/81 Pulse: 90 Respirations: 18 Pulse Ox (%): 98 - Physical Exam General: Alert, In no apparent distress, Oriented x3 HEENT: Atraumatic, PERRLA, EOMI Neck: Supple, JVD not distended Respiratory: Clear to auscultation bilaterally, Normal air movement Cardiovascular: Regular rate/rhythm, Normal S1 S2 Gastrointestinal: Normal bowel sounds, No tenderness Musculoskeletal: No tenderness Integumentary: No rashes Neurological: Normal speech, Normal tone, Normal affect Lymphatics: No axilla or inguinal lymphadenopathy Assessment And Plan - Plan A 64-year-old male with: Status post fall. Left subcapital femur fracture, nondisplaced initial encounter, status post ORIF postoperative day #2. The patient did well postoperatively except for some mild oliguria. Continue with pain control, DVT prophylaxis, with Lovenox. Consult PT. Orthopedics on board. Coronary artery disease, [place] artery and [place] heart without angina. Cardiology on board. The patient to continue on Coreg, lisinopril, statin, and aspirin. The patient will need outpatient workup. Atrial flutter Cardiology on board Coreg discontinued and changed to metoprolol. Echocardiogram with 30%, global hypokinesis Essential hypertension, stable. Diabetes mellitus type 2, insulin dependent. Hemoglobin A1c is 13%, not well controlled. We will adjust sliding scale insulin and monitor blood glucose levels. Mixed hyperlipidemia. Continue Lipitor. Chronic obstructive pulmonary disease with bronchitis, chronic. Continue supplemental oxygen. Continue albuterol p.r.n. Stable. Nicotine dependence with cigarette smoking, continuous, counseled. Noncompliance with medical treatment. The patient had not been taking any medications at home. Currently compliant. Plan: Patient is currently trying to work with physical therapy. Unfortunately , patient does not have any insurance/resources and therefore will not qualify for rehab or nursing home facility placement. He lives at home with with his son and has neighbors that helping during the day. patient unfortunately unable to even sit up by himself. Currently working on transfers with physical therapy. will consider discharge home once more improved with at least transfers. He is currently not a safe discharge home.
[2019-04-09] MEDS ORDERED: POTASSIUM CL SA 10 MEQ TAB PO ONE (12:00)
[2019-04-09] MEDS: BISACODYL E.C. 5 MG TAB PO PRN (18:01)
[2019-04-09] MEDS: ATORVASTATIN 80 MG TAB PO SCH (21:50)
[2019-04-10] MEDS: METOPROLOL TAR 25 MG TAB PO SCH ×2 (05:52→17:26)
[2019-04-10 06:00] LABS: Potassium 3.7 mmol/L (3.5-5.1)
[2019-04-10] MEDS: ENOXAPARIN 40 MG/0.4 ML SQ SCH (08:30)
[2019-04-10] MEDS: ASPIRIN EC 81 MG TAB PO SCH (08:31)
[2019-04-10] MEDS: FUROSEMIDE 20 MG TABLET PO SCH (08:31)
[2019-04-10] MEDS: NICOTINE 21 MG/PAT TD SCH (08:31)
[2019-04-10] MEDS: BISACODYL E.C. 5 MG TAB PO PRN (08:31)
[2019-04-10] MEDS: FAMOTIDINE 20 MG TAB PO SCH ×2 (08:31→21:08)
--- NOTE | 2019-04-10 08:38 | EKG ---
Test Date: 2019-04-09 Test Time: 21:41:04 [employer]: AUDELIA MEASUREMENT RESULTS: Intervals: Rate: 80 [place]: 216 QRSD: 140 QT: 408 QTc: 470 [place]: P: 62 [place]: 216 QRS: -22 T: 225 INTERPRETIVE STATEMENTS: Sinus rhythm with 1st degree AV block Nonspecific intraventricular block Cannot rule out Anteroseptal infarct, age undetermined T wave abnormality, consider inferior ischemia Abnormal ECG Compared to ECG 04/06/2019 20:45:20 First degree AV block now present Electronically Signed On 04-10-19 08:37:07 CDT by Ruben Elizabeth
[2019-04-10] MEDS: INSULIN -REGULAR HUMAN 50 UNIT/0.5 ML ML SQ SCH ×4 (09:00→21:10)
[2019-04-10] MEDS ORDERED: POTASSIUM 25 MEQ EFFERV TAB PO ONE (09:00)
--- NOTE | 2019-04-10 11:07 | P.PN ---
Subjective Date of Service: 04/10/19 Primary Care Provider: None Chief Complaint: Fall with left hip pain Subjective: Improving The patient was seen and examined at bedside. Chart reviewed and case discussed with RN. Patient currently trying to work with physical therapy, unfortunately remains max assist even for transfers. Patient unable to even raise himself to a sitting position in bed. Working a little bit better with PT Review of Systems 10-point ROS is otherwise unremarkable Physical Examination - Vital Signs Temperature: 98.0 F Blood Pressure: 159/74 Pulse: 73 Respirations: 16 Pulse Ox (%): 98 - Physical Exam General: Alert, In no apparent distress HEENT: Atraumatic, PERRLA, EOMI Neck: Supple, JVD not distended Respiratory: Clear to auscultation bilaterally, Normal air movement Cardiovascular: Regular rate/rhythm, Normal S1 S2 Gastrointestinal: Normal bowel sounds, No tenderness Musculoskeletal: No tenderness Integumentary: No rashes Neurological: Normal speech, Normal tone, Normal affect Lymphatics: No axilla or inguinal lymphadenopathy Assessment And Plan - Plan A 64-year-old male with: Status post fall. Left subcapital femur fracture, nondisplaced initial encounter, status post ORIF postoperative day #2. The patient did well postoperatively except for some mild oliguria. Continue with pain control, DVT prophylaxis, with Lovenox. Consult PT. Orthopedics on board. Coronary artery disease, [place] artery and [place] heart without angina. Cardiology on board. The patient to continue on Coreg, lisinopril, statin, and aspirin. The patient will need outpatient workup. Atrial flutter Cardiology on board Coreg discontinued and changed to metoprolol. Echocardiogram with 30%, global hypokinesis Essential hypertension, stable. Diabetes mellitus type 2, insulin dependent. Hemoglobin A1c is 13%, not well controlled. We will adjust sliding scale insulin and monitor blood glucose levels. Mixed hyperlipidemia. Continue Lipitor. Chronic obstructive pulmonary disease with bronchitis, chronic. Continue supplemental oxygen. Continue albuterol p.r.n. Stable. Nicotine dependence with cigarette smoking, continuous, counseled. Noncompliance with medical treatment. The patient had not been taking any medications at home. Currently compliant. Plan: Patient is currently trying to work with physical therapy. Unfortunately , patient does not have any insurance/resources and therefore will not qualify for rehab or group home facility placement. He lives at home with with his son and has neighbors that helping during the day. patient unfortunately unable to even sit up by himself. Currently working on transfers with physical therapy. will consider discharge home once more improved with at least transfers. He is currently not a safe discharge home.
[2019-04-10] MEDS: MORPHINE 2 MG/ML SYR IV PRN ×2 (11:09→14:57)
[2019-04-10] MEDS: ARFORMOTEROL TARTRATE 15 MCG/2 ML VIAL.NEB NEB SCH ×2 (14:18→19:45)
[2019-04-10] MEDS: ATORVASTATIN 80 MG TAB PO SCH (21:08)
[2019-04-11] MEDS: METOPROLOL TAR 25 MG TAB PO SCH ×2 (05:56→17:02)
[2019-04-11 06:25] LABS: Potassium 5.1 mmol/L (3.5-5.1)
[2019-04-11] MEDS: ARFORMOTEROL TARTRATE 15 MCG/2 ML VIAL.NEB NEB SCH ×2 (08:26→19:40)
[2019-04-11] MEDS: ASPIRIN EC 81 MG TAB PO SCH (08:37)
[2019-04-11] MEDS: FUROSEMIDE 20 MG TABLET PO SCH (08:37)
[2019-04-11] MEDS: TRAMADOL HCL 50 MG TAB PO PRN (08:38)
[2019-04-11] MEDS: NICOTINE 21 MG/PAT TD SCH (08:38)
[2019-04-11] MEDS: ENOXAPARIN 40 MG/0.4 ML SQ SCH (08:38)
[2019-04-11] MEDS: FAMOTIDINE 20 MG TAB PO SCH ×2 (08:38→20:02)
[2019-04-11] MEDS: INSULIN -REGULAR HUMAN 50 UNIT/0.5 ML ML SQ SCH ×4 (08:39→20:02)
--- NOTE | 2019-04-11 10:44 | P.PN ---
Subjective Date of Service: 04/11/19 Primary Care Provider: None Chief Complaint: Fall with left hip pain The patient was seen and examined at bedside. Chart reviewed and case discussed with RN. Patient is working a little bit better with PT; complaining of pain in the hip this am. Sitting up in chair at the time of my exam Review of Systems 10-point ROS is otherwise unremarkable Physical Examination - Vital Signs Temperature: 98.3 F Blood Pressure: 162/81 Pulse: 80 Respirations: 18 Pulse Ox (%): 98 - Physical Exam General: Alert, In no apparent distress HEENT: Atraumatic, PERRLA, EOMI Neck: Supple, JVD not distended Respiratory: Clear to auscultation bilaterally, Normal air movement Cardiovascular: Regular rate/rhythm, Normal S1 S2 Gastrointestinal: Normal bowel sounds, No tenderness Musculoskeletal: No tenderness Integumentary: No rashes Neurological: Normal speech, Normal tone, Normal affect Lymphatics: No axilla or inguinal lymphadenopathy Assessment And Plan - Plan A 64-year-old male with: Status post fall. Left subcapital femur fracture, nondisplaced initial encounter, status post ORIF postoperative day #2. The patient did well postoperatively except for some mild oliguria. Continue with pain control, DVT prophylaxis, with Lovenox. Consult PT. Orthopedics on board. Coronary artery disease, [place] artery and [place] heart without angina. Cardiology on board. The patient to continue on Coreg, lisinopril, statin, and aspirin. The patient will need outpatient workup. Atrial flutter Cardiology on board Coreg discontinued and changed to metoprolol. Echocardiogram with 30%, global hypokinesis Essential hypertension, stable. Diabetes mellitus type 2, insulin dependent. Hemoglobin A1c is 13%, not well controlled. We will adjust sliding scale insulin and monitor blood glucose levels. Mixed hyperlipidemia. Continue Lipitor. Chronic obstructive pulmonary disease with bronchitis, chronic. Continue supplemental oxygen. Continue albuterol p.r.n. Stable. Nicotine dependence with cigarette smoking, continuous, counseled. Noncompliance with medical treatment. The patient had not been taking any medications at home. Currently compliant. Plan: Patient is currently trying to work with physical therapy. Unfortunately , patient does not have any insurance/resources and therefore will not qualify for rehab or long-term facility placement. He lives at home with with his son and has neighbors that helping during the day. patient unfortunately unable to even sit up by himself. Currently working on transfers with physical therapy. will consider discharge home once more improved with at least transfers. He is currently not a safe discharge home.
[2019-04-11] MEDS: ATORVASTATIN 80 MG TAB PO SCH (20:02)
[2019-04-11 20:12] VITALS: O2SAT 98
[2019-04-11] MEDS ORDERED: TEMAZEPAM 15 MG CAP PO PRN (22:04)
[2019-04-12] MEDS: METOPROLOL TAR 25 MG TAB PO SCH (05:19)
[2019-04-12] MEDS: ARFORMOTEROL TARTRATE 15 MCG/2 ML VIAL.NEB NEB SCH (08:45)
[2019-04-12] MEDS: INSULIN -REGULAR HUMAN 50 UNIT/0.5 ML ML SQ SCH ×2 (09:04→11:42)
[2019-04-12] MEDS: TRAMADOL HCL 50 MG TAB PO PRN (09:07)
[2019-04-12] MEDS: FAMOTIDINE 20 MG TAB PO SCH (09:08)
[2019-04-12] MEDS: FUROSEMIDE 20 MG TABLET PO SCH (09:08)
[2019-04-12] MEDS: ENOXAPARIN 40 MG/0.4 ML SQ SCH (09:08)
[2019-04-12] MEDS: ASPIRIN EC 81 MG TAB PO SCH (09:08)
[2019-04-12] MEDS: NICOTINE 21 MG/PAT TD SCH (09:09)
--- NOTE | 2019-04-12 11:00 | P.PN ---
Subjective Date of Service: 04/12/19 Primary Care Provider: None Chief Complaint: Fall with left hip pain Subjective: Improving The patient was seen and examined at bedside. Chart reviewed and case discussed with RN. Patient is working better with PT; complaining of pain in the hip this am, especially after therapy Sitting up in chair at the time of my exam Review of Systems 10-point ROS is otherwise unremarkable Physical Examination - Vital Signs Temperature: 98.6 F Blood Pressure: 162/74 Pulse: 85 Respirations: 18 Pulse Ox (%): 96 - Physical Exam General: Alert, Oriented x3, Mild distress HEENT: Atraumatic, PERRLA, EOMI Neck: Supple, JVD not distended Respiratory: Clear to auscultation bilaterally, Normal air movement Cardiovascular: Regular rate/rhythm, Normal S1 S2 Gastrointestinal: Normal bowel sounds, No tenderness Musculoskeletal: No tenderness Integumentary: No rashes Neurological: Normal speech, Normal tone, Normal affect Lymphatics: No axilla or inguinal lymphadenopathy Assessment And Plan - Plan A 64-year-old male with: Status post fall. Left subcapital femur fracture, nondisplaced initial encounter, status post ORIF postoperative day #6. The patient did well postoperatively except for some mild oliguria. Continue with pain control, DVT prophylaxis, with Lovenox. Continue PT. Orthopedics on board. Coronary artery disease, [place] artery and [place] heart without angina. Cardiology on board. The patient to continue on Coreg, lisinopril, statin, and aspirin. The patient will need outpatient workup. Atrial flutter Cardiology on board Coreg discontinued and changed to metoprolol. Echocardiogram with 30%, global hypokinesis Essential hypertension, stable. Diabetes mellitus type 2, insulin dependent. Hemoglobin A1c is 13%, not well controlled. We will adjust sliding scale insulin and monitor blood glucose levels. Mixed hyperlipidemia. Continue Lipitor. Chronic obstructive pulmonary disease with bronchitis, chronic. Continue supplemental oxygen. Continue albuterol p.r.n. Stable. Nicotine dependence with cigarette smoking, continuous, counseled. Noncompliance with medical treatment. The patient had not been taking any medications at home. Currently compliant. Plan: Patient is currently trying to work with physical therapy. Unfortunately , patient does not have any insurance/resources and therefore will not qualify for rehab or shelter facility placement. He lives at home with with his son and has neighbors that helping during the day. patient unfortunately unable to even sit up by himself. Currently working on transfers with physical therapy. will consider discharge home in the next 24-48 hrs once working with PT better. He is currently not a safe discharge home.
[2019-04-12 12:57] VITALS: BP 159/75; TEMP 99.3
--- NOTE | 2019-04-12 13:01 | P.DS ---
Admission Date: 04/03/19 Discharge Date: 04/12/19 Primary Care Provider: None Disposition: ROUTINE DISCHARGE Discharge Condition: GOOD Reason for Admission: Fall with left hip pain Consultations: Orthopedic surgery Cardiology Brief History of Present Illness: 64-year-old male presented to the emergency room after a fall and left hip pain. Patient with history of CAD, hypertension, diabetes mellitus type 2 insulin dependent, tobacco abuse, hyperlipidemia, and COPD. Patient reports that he fell twice yesterday. This is after he got dizzy and lost his balance. He fell to the ground and got up. He primarily uses a walker to get around. Today he fell again. He had extreme pain to the left hip. He came to the ER for further evaluation. In the ER patient evaluated. X-ray revealed left subcapital hip fracture. Lab- CMP, CBC pending at this time. Patient was admitted for further evaluation and treatment. When I saw the patient ER, pain improved with medication. Patient with history of CAD. Son reports that he was evaluated at [facility] last year. He was told that he had CAD and that would require stenting or cardiac bypass. It appears that the patient never followed up. No procedure was done. Patient admits not taking his medication. Patient is supposed to be taking aspirin, Plavix, Lipitor, carvedilol, Lasix, and lisinopril. He does take some insulin from time to time. He has not followed up with a PCP. Patient still smokes about 2 packs per day. Hospital Course: Patient was admitted with left subcapital femur fracture, nondisplaced. He underwent open reduction and did well postoperatively. His pain was fairly well controlled. Physical therapy was consulted, he continue to work with physical therapy. Throughout the stay, he did go into atrial flutter and cardiology was consulted. His medications were adjusted, Coreg was discontinued and metoprolol was started. An echocardiogram was done which showed 30% ejection fraction with global hypokinesis. Patient has a history of CAD previously and has been non compliant and did not go back for a catheterization at that time. He is extensively educated on his disease process. Unfortunately, patient does not have any insurance/resources and therefore did not qualify for rehab or longterm facility placement. He lives at home with with his son and has neighbors that helping during the day. His discharge was delayed as patient unfortunately unable to even sit up by himself. He continue to work with physical therapy and slightly improved. He was discharged once he was able to at least transfer with minimal help. He again was counseled extensively on compliance with medications. He was discharged on insulin as his A1c was 13%. He was also discharged on the metoprolol. He was instructed to follow up with his primary care physician in couple of days. His diagnoses/treatment plan was explained to him, all questions were answered and he verbalized understanding. He was then discharged home in a safe and stable manner. Vital Signs/Physical Exam: Temp Pulse Resp BP Pulse Ox 99.3 F 84 18 159/75 H 96 04/12/19 12:00 04/12/19 12:00 04/12/19 12:00 04/12/19 12:00 04/12/19 12:00 General: Alert, In no apparent distress HEENT: Atraumatic, PERRLA, EOMI Neck: Supple, JVD not distended Respiratory: Clear to auscultation bilaterally, Normal air movement Cardiovascular: Regular rate/rhythm, Normal S1 S2 Gastrointestinal: Normal bowel sounds, No tenderness Musculoskeletal: No tenderness Integumentary: No rashes Neurological: Normal speech, Normal tone, Normal affect Lymphatics: No axilla or inguinal lymphadenopathy Laboratory Data at Discharge: WBC 10.5 K/uL (4.3-10.9) D 04/07/19 05:45 Hgb 8.4 g/dL (13.6-17.9) L 04/07/19 05:45 Hct 25.6 % (39.6-49.0) L 04/07/19 05:45 Plt Count 239 K/uL (152-406) 04/07/19 05:45 PT 10.8 SECONDS (9.5-12.5) 04/03/19 20:28 INR 0.91 04/03/19 20:28 Sodium 137 mmol/L (136-145) 04/11/19 05:44 Potassium 5.1 mmol/L (3.5-5.1) 04/11/19 05:44 BUN 19 mg/dL (7-18) H 04/11/19 05:44 Creatinine 1.01 mg/dL (0.55-1.3) 04/11/19 05:44 Glucose 192 mg/dL (74-106) H 04/11/19 05:44 Magnesium 1.9 mg/dL (1.8-2.4) 04/09/19 05:30 Total Bilirubin 0.2 mg/dL (0.2-1.0) 04/03/19 20:28 AST 14 U/L (15-37) L 04/03/19 20:28 ALT 12 U/L (12-78) 04/03/19 20:28 Alkaline Phosphatase 78 U/L (45-117) 04/03/19 20:28 Triglycerides 146 mg/dL (<150) 04/04/19 05:33 Cholesterol 241 mg/dL (<200) H 04/04/19 05:33 HDL Cholesterol 38 mg/dL (40-60) L 04/04/19 05:33 Cholesterol/HDL Ratio 6.34 04/04/19 05:33 Home Medications: Atorvastatin Calcium [Lipitor] 80 mg PO BEDTIME #30 tab 04/12/19 Blood Sugar Diagnostic [Onetouch Verio] 1 each MC DAILY #100 strip 04/12/19 Blood-Glucose Meter [Onetouch Verio] 1 each MC DAILY #1 each 04/12/19 Famotidine [Pepcid*] 20 mg PO BID #30 tab 04/12/19 Furosemide [Lasix*] 20 mg PO DAILY #30 tab 04/12/19 Insulin Glargine,Hum.rec.anlog [Lantus] 20 unit SQ BID #500 ml 04/12/19 Lancets [One Touch Lancets] 1 each MC DAILY #100 each 04/12/19 Metoprolol Tartrate [Lopressor*] 25 mg PO BID 6AM 6PM #60 tab 04/12/19 traMADol HCL [Ultram*] 50 mg PO Q6H PRN #15 tab 04/12/19 New Medications: Atorvastatin Calcium [Lipitor] 80 mg PO BEDTIME #30 tab Blood Sugar Diagnostic [Onetouch Verio] 1 each MC DAILY #100 strip Blood-Glucose Meter [Onetouch Verio] 1 each MC DAILY #1 each Famotidine [Pepcid*] 20 mg PO BID #30 tab Furosemide [Lasix*] 20 mg PO DAILY #30 tab Insulin Glargine,Hum.rec.anlog [Lantus] 20 unit SQ BID #500 ml Lancets [One Touch Lancets] 1 each MC DAILY #100 each Metoprolol Tartrate [Lopressor*] 25 mg PO BID 6AM 6PM #60 tab traMADol HCL [Ultram*] 50 mg PO Q6H PRN #15 tab PRN Reason: Pain Scale 5-7 (Moderate) Patient Discharge Instructions: Please follow up with your primary care physician in 2-3 days for further management of your hypertension and diabetes. Please follow up with cardiology and orthopedic surgery in 1-2 weeks. Return to the emergency room for worsening symptoms. Diet: ADA Activity: Ad sebastian Followup: Martin Reyes MD [ACTIVE - CAN ADMIT] - Geremias Armas MD [ACTIVE - CAN ADMIT] - Time spent managing pt's care (in minutes): 55
== END 2019-04-12 14:50 | disposition home or self-care (01) | DRG 481 ==
LOC: ER 19:37 → ERHOLD 22:14 → 2ND 23:15 → 3RD-ICU 04-05 13:39 → 2ND 04-06 09:32
PROVIDERS: ADMIT Family Medicine; ATTEND Family Medicine
PROC: 0QS704Z Reposition Left Upper Femur with Internal Fixation Device, Open Approach (ICD-10-PCS; principal; 2019-04-05 07:00)
DX: S72.012A Unspecified intracapsular fracture of left femur, initial encounter for closed fracture (principal); I48.92 Unspecified atrial flutter; R64 Cachexia; I25.10 Atherosclerotic heart disease of native coronary artery without angina pectoris; I10 Essential (primary) hypertension; E11.9 Type 2 diabetes mellitus without complications; F17.210 Nicotine dependence, cigarettes, uncomplicated; J44.9 Chronic obstructive pulmonary disease, unspecified; Z91.19 Patient's noncompliance with other medical treatment and regimen; W18.30XA Fall on same level, unspecified, initial encounter; Y92.009 Unspecified place in unspecified non-institutional (private) residence as the place of occurrence of the external cause; E78.2 Mixed hyperlipidemia; R54 Age-related physical debility; Z68.20 Body mass index [BMI] 20.0-20.9, adult; Z66 Do not resuscitate
CPT/HCPCS: 36415; 51702; 71045; 72170; 80048; 80061; 80076; 81003; 81015; 82607; 82728; 82962; 83036; 83540; 83735; 83880; 84132; 84439; 84443; 84466; 84484; 85025; 85610; 87086; 87088; 88305; 88311; 93005; 93306; 94640; 96361; 96374; 96375; 97110; 97112; 97116; 97161; 97530; 99285; J0360; J0690; J1100; J1650; J2270; J2370; J2405; J2550; J2704; J3010; J7030; J7605

== ENCOUNTER 2019-04-30 07:31 | Inpatient (IN) | payer SELFPAY ==
[2019-04-30 07:59] LABS: Absolute Lymphocytes (CBC) 1.8 K/uL (0.7-4.9); Basophils % 0.8 % (0-1.3); Hematocrit 22.8 % (39.6-49.0); Lymphocytes % 20.2 % (15.3-44.8); RBC Red Blood Cell Count 3.61 M/uL (4.33-5.43)
[2019-04-30 08:01] LABS: Protime INR 1.02
[2019-04-30] MEDS ORDERED: ALBUTEROL 2.5 MG/3 ML NEB SOL ONE (08:03)
[2019-04-30 08:16] LABS: ALT/SGPT 10 U/L (12-78); AST/SGOT 14 U/L (15-37); Albumin 1.8 g/dL (3.4-5.0); Alkaline Phosphatase 78 U/L (45-117); BUN Blood Urea Nitrogen 24 mg/dL (7-18); Bicarbonate 26 mmol/L (21-32); Bilirubin Direct < 0.1 mg/dL (0-0.2); Bilirubin Total 0.1 mg/dL (0.2-1.0); Glucose Level 61 mg/dL (74-106); Magnesium 2.2 mg/dL (1.8-2.4); NT PRO-BNP 13846 pg/mL (<125); Potassium 3.5 mmol/L (3.5-5.1); Protein, Total 6.5 g/dL (6.4-8.2); Sodium Level 142 mmol/L (136-145); Troponin (Emerg Dept Use Only) 0.05 ng/mL (0.0-0.045)
--- NOTE | 2019-04-30 08:38 | RAD REPORT ---
EXAM DESCRIPTION: US - Extremity Venous Uni Ltd - 04/30/2019 8:24 am CLINICAL HISTORY: Left leg pain and swelling COMPARISON: None. TECHNIQUE: Real-time sonographic evaluation of the left lower extremity deep venous system was perfo rmed. FINDINGS: Normal compressibility, flow augmentation, phasic flow and spontaneous flow are identified in the left lower extremity common femoral, superficial femoral, popliteal and posterior tibial vein s. No intraluminal filling defects seen. IMPRESSION: No DVT in the left lower extremity.
[2019-04-30 08:39] LABS: Anisocytosis 2+; Blood Morphology Comment NOTED (NOT SEEN); Platelet Estimate INCR; Urine White Blood Cell Casts OK
[2019-04-30 08:40] LABS: Elliptocytes 1+; Hypochromasia 2+; Poikilocytosis 2+
--- NOTE | 2019-04-30 09:01 | RAD REPORT ---
EXAM DESCRIPTION: CT - Chest For Pe Angio - 04/30/2019 8:39 am CLINICAL HISTORY: DYSPNEA DYSPNEA , shortness of breath, left hip surgery 3 weeks earlier COMPARISON: Chest Single View dated 04/30/2019 TECHNIQUE: Dynamically enhanced 3 mm thick images of the chest were obtained during administration o f approximately 150mL Isovue 370 IV contrast. Coronal and oblique MIP reconstruction images were gene rated and reviewed. Exam utilizes a protocol to evaluate the pulmonary arterial tree. All CT scans are performed using dose optimization technique as appropriate and may include automated exposure control or mA/KV adjustment according to patient size. FINDINGS: No pulmonary emboli are identified. The aorta as imaged shows no acute or suspicious finding. No pericardial thickening or effusion. Large bilateral pleural effusions are present. Substantial atelectasis present of each lower lobe. No underlying mass or infiltrate suspected. Prominent interstitial markings throughout the chest accent uated by respiratory motion. Patient has fluid retention in the subcutaneous fatty tissues as well. N o pneumothorax. No pleural based mass. No mediastinal or hilar suspicious masses. No chest wall masses or abnormal axillary lymphadenopathy. IMPRESSION: No pulmonary emboli identified. Large bilateral pleural effusions with significant atelectasis each lower lobe. Interstitial edema pa ttern evident. Patient also has fluid retention throughout the subcutaneous fatty tissues.
[2019-04-30] MEDS ORDERED: FUROSEMIDE 40 MG/4 ML VIAL ONE (09:53)
--- NOTE | 2019-04-30 10:18 | EKG ---
Test Date: 2019-04-30 Test Time: 07:38:16 [employer]ocate: ROQUE MEASUREMENT RESULTS: Intervals: Rate: 81 MT: 220 QRSD: 140 QT: 408 QTc: 473 [place]: P: 70 MT: 220 QRS: 18 T: 225 INTERPRETIVE STATEMENTS: Sinus rhythm with 1st degree AV block Possible Left atrial enlargement Nonspecific intraventricular block Cannot rule out Septal infarct, age undetermined T wave abnormality, consider inferolateral ischemia Abnormal ECG Compared to ECG 04/09/2019 21:41:04 No significant changes Electronically Signed On 04-30-19 10:17:41 CDT by Martin Reyes
--- NOTE | 2019-04-30 10:32 | ER ---
Nurse's Notes [facility] Name: Mumtaz Anderson Age: 64 yrs Sex: Male : 1955 Arrival Date: 04/30/2019 Time: 07:33 Bed 7 Private MD: Diagnosis: Heart failure;Pleural effusion in conditions classified elsewhere;Anemia in other chronic diseases classified elsewhere Presentation: 04/30 07:39 Presenting complaint: Patient states: left hip surgery X [address] rafaela Skinner, chest pain, SOB X 2 days,wakes up SOB, also has left leg swelling and pain since surgery. Transition of care: patient was not received from another setting of care. Onset of symptoms was April 28, 2019. Risk Assessment: Do you want to hurt yourself or someone else? Patient reports no desire to harm self or others. Initial Sepsis Screen: Does the patient meet any 2 criteria? No. Patient's initial sepsis screen is negative. Does the patient have a suspected source of infection? No. Patient's initial sepsis screen is negative. Care prior to arrival: None. 07:39 Method Of Arrival: Wheelchair iw 07:39 Acuity: VIDAL 2 iw Triage Assessment: 07:41 General: Appears in no apparent distress. Behavior is calm, cooperative, appropriate tw2 for age. Pain: Complains of pain in chest. EENT: No signs and/or symptoms were reported regarding the EENT system. Neuro: Level of Consciousness is awake, alert, obeys commands, Oriented to person, place, time, situation. Cardiovascular: Reports chest pain, shortness of breath, Heart tones S1 S2 Patient's skin is warm and dry. Respiratory: Airway is patent Respiratory effort is even, unlabored, Respiratory pattern is regular, symmetrical, tachypnea. GI: No signs and/or symptoms were reported involving the gastrointestinal system. Abdomen is flat, non-distended, Bowel sounds present X 4 quads. : No signs and/or symptoms were reported regarding the genitourinary system. Derm: Skin is pale, Skin temperature is warm. Musculoskeletal: Range of motion: intact in all extremities, Swelling present in left leg. Historical: - Allergies: 07:35 "nexia d"; tw2 - Home Meds: 07:35 Tylenol #3 Oral [Active]; Metformin Oral [Active]; Glyburide Oral [Active]; tw2 08:01 Novolin N 100 unit/mL Sub-Q susp [Active]; Novolin R Sub-Q [Active]; tw2 - PMHx: 07:35 Diabetes - NIDDM; Hyperlipidemia; Myocardial infarction; tw2 - PSHx: 07:43 left hip; Knee surgery; foot; hand; iw - Immunization history:: Adult Immunizations. - Social history:: Smoking status: . - Ebola Screening: : Patient denies travel to an Ebola-affected area in the 21 days before illness onset Patient negative for fever greater than or equal to 101.5 degrees Fahrenheit, and additional compatible Ebola Virus Disease symptoms Patient denies exposure to infectious person Patient denies travel to an Ebola-affected area in the 21 days before illness onset No symptoms or risks identified at this time. Screenin:34 Abuse screen: Denies threats or abuse. Nutritional screening: No deficits noted. tw2 Tuberculosis screening: No symptoms or risk factors identified. Fall Risk Secondary diagnosis (15 points) impaired mobility. Assessment: 07:43 Reassessment: see triage assessment. tw2 07:44 Pain: Pain began. tw2 07:44 Pain: Pain does not radiate. tw2 09:40 Neuro: Level of Consciousness is awake, alert, obeys commands, Oriented to person, aa5 place, time, situation. Cardiovascular: Rhythm is sinus rhythm. Respiratory: Airway is patent Respiratory effort is even, unlabored, Respiratory pattern is regular, symmetrical. Derm: Skin is dry, Skin is pale, Skin temperature is warm. 09:40 Reassessment: Pt states no complaints at this time. Awaiting complete radiology aa5 results. . 10:45 Reassessment: Dr. Rose (Hospitalist) at bedside . aa5 10:45 Reassessment: Pt sitting up in bed, equal and unlabored respirations, skin is aa5 pale/warm/dry. Pt's son at bedside. . 10:50 Reassessment: Pt sitting up in bed eating, pt tolerating well. . aa5 12:44 Reassessment: icu primary nurse will call me back to receive the report. mg2 Vital Signs: 07:43 BP 173 / 84; Pulse 80; Resp 22; Temp 97.9(TE); Pulse Ox 98% on R/A; tw2 07:43 BP 173 / 84; Pulse 81; Resp 22 S; Temp 97.9; Pulse Ox 98% on R/A; Weight 65.77 kg; iw Height 6 ft. 0 in. (182.88 cm); Pain 5/10; 09:45 BP 157 / 91; Pulse 82; Resp 18 S; Pulse Ox 100% on 2 lpm NC; Pain 0/10; aa5 10:45 BP 158 / 90; Pulse 84; Resp 20 S; Pulse Ox 100% on 2 lpm NC; aa5 12:16 BP 156 / 87; Pulse 88; Resp 19; Pulse Ox 100% on 2 lpm NC; mg2 13:22 BP 160 / 83; Pulse 87; Resp 18; Temp 98; Pulse Ox 100% on R/A; mg2 07:43 Body Mass Index 19.67 (65.77 kg, 182.88 cm) iw ED Course: 07:33 Patient arrived in ED. rg4 07:33 Sonia Beach RN is Primary Nurse. tw2 07:34 Arm band placed on. tw2 07:34 Bed in low position. Call light in reach. monitoring tech on. Pulse ox on. NIBP on. tw2 07:36 Kodak Charles MD is Attending Physician. gs 07:41 Triage completed. iw 07:44 Patient maintains SpO2 saturation greater than 95% on room air. tw2 07:44 Inserted saline lock: 22 gauge in right forearm, using aseptic technique. ,using tw2 aseptic technique. per ANDRADE Christianson Blood collected. 07:45 Initial lab(s) drawn, by hi, sent to lab. aa5 07:52 EKG done, by alarm field technician. reviewed by Kodak Charles MD. at1 08:07 XRAY Chest (1 view) In Process Unspecified. EDMS 08:25 US Extremity Venous Unilateral Ltd In Process Unspecified. EDMS 08:39 CT Chest For PE Angio In Process Unspecified. EDMS 10:00 Inserted saline lock: 20 gauge in left forearm, using aseptic technique. aa5 10:28 Brooke Rose MD is Hospitalizing Provider. gs 12:05 Report given to ANDRADE Linn. aa5 12:46 Elevated head of bed elevated. mg2 13:08 First set of blood cultures drawn by venipuncture 21G to right ac. dh3 13:21 No provider procedures requiring assistance completed. Patient admitted, IV remains in mg2 place. 13:27 Second set of blood cultures drawn by venipuncture 23G to right ac. 3 Administered Medications: 08:08 Drug: Albuterol 2.5 mg Route: Inhalation; tw2 10:00 Drug: Lasix 40 mg Route: IVP; Site: right forearm; aa5 10:10 Follow up: Response: No adverse reaction aa5 10:46 Drug: Aspirin Chewable Tablet 324 mg Route: PO; aa5 12:38 Follow up: Response: No adverse reaction mg2 Point of Care Testing: Blood Glucose: 10:00 Blood Glucose: 99 mg/dL; aa5 Ranges: Output: 10:45 Urine: 600ml (Voided); Total: 600ml. aa5 Outcome: 10:31 Decision to Hospitalize by Provider. 13:21 Admitted to ICU accompanied by nurse, accompanied by tech, via stretcher, room 6, on mg2 monitor, with chart, Report called to Obdulia Iniguez RN 13:21 Condition: stable 13:21 Instructed on the need for admit, Demonstrated understanding of instructions. 13:50 Patient left the ED. mg2 Signatures: Dispatcher [employer] Callie Henson RN RN Meghan Singh RN RN aa5 Crystal Spencer, intermediate school teacher EKG Tat1 Sonia Beach RN RN 2 Sydney Garcia [facility] Kodak Charles MD MD Kaveh Castle RN RN mg2 Corrections: (The following items were deleted from the chart) 07:44 07:35 Home Meds: Patient is not currently taking any of his medications; 07:50 07:41 Musculoskeletal: Range of motion: intact in all extremities, 53 07:43 Allergies: "nexia d"; 07:43 PMHx: Diabetes - NIDDM; 07:43 PMHx: Hyperlipidemia; 07:43 PMHx: Myocardial infarction; [facility]
--- NOTE | 2019-04-30 10:33 | EDPHYS ---
Physician Documentation [facility] Name: Mumtaz Anderson Age: 64 yrs Sex: Male : 1955 Arrival Date: 04/30/2019 Time: 07:33 Bed 7 Private MD: ED Physician Kodak Charles HPI: 04/30 10:20 This 64 yrs old Male presents to ER via Wheelchair with complaints of Chest gs Pain, Breathing Difficulty. 10:20 Onset: 3 day(s) ago, and became persistent. Associated signs and symptoms: Pertinent gs negatives: abdominal pain, cough, syncope. The chest pain is described as dull, a heaviness. Duration: The patient or guardian reports multiple episodes, that are intermittent. Modifying factors: The symptoms are alleviated by nothing. the symptoms are aggravated by exertion. Severity of pain: At its worst the pain was moderate in the emergency department the pain has improved markedly. The patient has experienced similar episodes in the past, a few times. Historical: - Allergies: 07:35 "nexia d"; tw2 - Home Meds: 07:35 Tylenol #3 Oral [Active]; Metformin Oral [Active]; Glyburide Oral [Active]; tw2 08:01 Novolin N 100 unit/mL Sub-Q susp [Active]; Novolin R Sub-Q [Active]; tw2 - PMHx: 07:35 Diabetes - NIDDM; Hyperlipidemia; Myocardial infarction; tw2 - PSHx: 07:43 left hip; Knee surgery; foot; hand; iw - Immunization history:: Adult Immunizations. - Social history:: Smoking status: . - Ebola Screening: : Patient denies travel to an Ebola-affected area in the 21 days before illness onset Patient negative for fever greater than or equal to 101.5 degrees Fahrenheit, and additional compatible Ebola Virus Disease symptoms Patient denies exposure to infectious person Patient denies travel to an Ebola-affected area in the 21 days before illness onset No symptoms or risks identified at this time. ROS: 10:25 All other systems are negative. gs Exam: 10:25 Head/Face: Normocephalic, atraumatic. Eyes: Pupils equal round and reactive to light, gs extra-ocular motions intact. Lids and lashes normal. Conjunctiva and sclera are non-icteric and not injected. Cornea within normal limits. Periorbital areas with no swelling, redness, or edema. ENT: Nares patent. No nasal discharge, no septal abnormalities noted. Tympanic membranes are normal and external auditory canals are clear. Oropharynx with no redness, swelling, or masses, exudates, or evidence of obstruction, uvula midline. Mucous membranes moist. Neck: Trachea midline, no thyromegaly or masses palpated, and no cervical lymphadenopathy. Supple, full range of motion without nuchal rigidity, or vertebral point tenderness. No Meningismus. Chest/axilla: Normal chest wall appearance and motion. Nontender with no deformity. No lesions are appreciated. Cardiovascular: Regular rate and rhythm with a normal S1 and S2. No gallops, murmurs, or rubs. Normal PMI, no JVD. No pulse deficits. Abdomen/GI: Soft, non-tender, with normal bowel sounds. No distension or tympany. No guarding or rebound. No evidence of tenderness throughout. Back: No spinal tenderness. No costovertebral tenderness. Full range of motion. Skin: Warm, dry with normal turgor. Normal color with no rashes, no lesions, and no evidence of cellulitis. MS/ Extremity: Pulses equal, no cyanosis. Neurovascular intact. Full, normal range of motion. Neuro: Awake and alert, GCS 15, oriented to person, place, time, and situation. Cranial nerves II-XII grossly intact. Motor strength 5/5 in all extremities. Sensory grossly intact. Cerebellar exam normal. Normal gait. 10:25 Constitutional: The patient appears alert, awake, pale. 10:25 Respiratory: the patient does not display signs of respiratory distress, Respirations: tachypnea, Breath sounds: decreased breath sounds, that are moderate, are located in both bases. 10:25 ECG was reviewed by the Attending Physician. Vital Signs: 07:43 BP 173 / 84; Pulse 80; Resp 22; Temp 97.9(TE); Pulse Ox 98% on R/A; tw2 07:43 BP 173 / 84; Pulse 81; Resp 22 S; Temp 97.9; Pulse Ox 98% on R/A; Weight 65.77 kg; iw Height 6 ft. 0 in. (182.88 cm); Pain 5/10; 09:45 BP 157 / 91; Pulse 82; Resp 18 S; Pulse Ox 100% on 2 lpm NC; Pain 0/10; aa5 10:45 BP 158 / 90; Pulse 84; Resp 20 S; Pulse Ox 100% on 2 lpm NC; aa5 12:16 BP 156 / 87; Pulse 88; Resp 19; Pulse Ox 100% on 2 lpm NC; mg2 13:22 BP 160 / 83; Pulse 87; Resp 18; Temp 98; Pulse Ox 100% on R/A; mg2 07:43 Body Mass Index 19.67 (65.77 kg, 182.88 cm) iw MDM: 07:54 Patient medically screened. gs 10:25 Differential diagnosis: acute myocardial infarction, coronary artery disease chest wall gs pain, congestive heart failure. Data reviewed: vital signs, nurses notes. 04/30 07:45 Order name: Basic Metabolic Panel; Complete Time: 08:46 tw2 04/30 07:45 Order name: CBC with Diff; Complete Time: 08:46 tw2 04/30 07:45 Order name: LFT's; Complete Time: 08:46 tw2 04/30 07:45 Order name: Magnesium; Complete Time: 08:46 tw2 04/30 07:45 Order name: NT PRO-BNP; Complete Time: 08:46 tw2 04/30 07:45 Order name: PT-INR; Complete Time: 08:46 tw2 04/30 07:45 Order name: Troponin (emerg Dept Use Only); Complete Time: 08:46 tw2 04/30 07:45 Order name: XRAY Chest (1 view) tw2 04/30 07:48 Order name: NOVA; Complete Time: 08:46 dh3 04/30 07:51 Order name: Type And Screen aa5 04/30 08:39 Order name: CBC Smear Scan; Complete Time: 08:46 EDMS 04/30 10:11 Order name: NOVA aa5 04/30 10:29 Order name: ABO/RH no charge; Complete Time: 10:32 EDMS 04/30 11:39 Order name: Blood Culture EDMS 04/30 07:45 Order name: EKG; Complete Time: 07:46 tw2 04/30 07:45 Order name: Cardiac monitoring; Complete Time: 07:46 tw2 04/30 07:45 Order name: EKG - Nurse/Tech; Complete Time: 07:46 tw2 04/30 07:45 Order name: IV Saline Lock; Complete Time: 07:46 tw2 04/30 07:45 Order name: Labs collected and sent; Complete Time: 07:50 tw2 04/30 07:53 Order name: US Extremity Venous Unilateral Ltd; Complete Time: 08:46 gs 04/30 07:53 Order name: CT Chest For PE Angio; Complete Time: 09:48 gs 04/30 09:52 Order name: Diet Regular; Complete Time: 09:52 aa5 04/30 11:38 Order name: CONS Physician Consult EDPR 04/30 11:38 Order name: CONS Physician Consult EDPR 04/30 11:38 Order name: Physical Therapy Consult EDPR 04/30 11:38 Order name: NPO EDMS 04/30 11:39 Order name: Thoracentesis w/ US Guide EDMS 04/30 07:45 Order name: O2 Per Protocol; Complete Time: 07:50 tw2 04/30 07:45 Order name: O2 Sat Monitoring; Complete Time: 07:50 tw2 EC:25 Rate is 81 beats/min. Rhythm is regular. [place] interval is prolonged. QRS interval is gs normal. T waves are Inverted. Clinical impression: NSR w/ Non-specific ST/T Changes. Interpreted by me. Administered Medications: 08:08 Drug: Albuterol 2.5 mg Route: Inhalation; tw2 10:00 Drug: Lasix 40 mg Route: IVP; Site: right forearm; aa5 10:10 Follow up: Response: No adverse reaction aa5 10:46 Drug: Aspirin Chewable Tablet 324 mg Route: PO; aa5 12:38 Follow up: Response: No adverse reaction mg2 Point of Care Testing: Blood Glucose: 10:00 Blood Glucose: 99 mg/dL; aa5 Ranges: Critical Glucose Levels:Adult <50 mg/dl or >400 mg/dl <40 mg/dl or >180 mg/dl Disposition: 04/30/19 10:31 Hospitalization ordered by Brooke Rose for Observation. Preliminary diagnosis are Heart failure, Pleural effusion in conditions classified elsewhere, Anemia in other chronic diseases classified elsewhere. - Bed requested for Intensive Care Unit. - Status is Observation. mg2 - Condition is Stable. - Problem is an acute exacerbation. - Symptoms have improved. UTI on Admission? No Signatures: Dispatcher [employer] EDPR Callie Cleveland RN RN iw Meghan Singh RN RN aa5 Sonia Beach RN RN tw2 Kodak Charles MD MD gs Botello, Elizabeth eb Gardose, Michele RN RN mg2 Corrections: (The following items were deleted from the chart) 07:44 07:35 Home Meds: Patient is not currently taking any of his medications; tw2 tw 07:53 07:43 Allergies: "nexia d"; [facility] 07:53 07:43 PMHx: Diabetes - NIDDM; [facility] 07:53 07:43 PMHx: Hyperlipidemia; iw 07:53 07:43 PMHx: Myocardial infarction; [facility] 10:36 10:31 Hospitalization Ordered by Brooke Rose MD for Observation. Preliminary eb diagnosis is Heart failure; Pleural effusion in conditions classified elsewhere; Anemia in other chronic diseases classified elsewhere. Bed requested for Telemetry/MedSurg (observation). Status is Observation. Condition is Stable. Problem is an acute exacerbation. Symptoms have improved. UTI on Admission? No. gs 12:30 10:36 04/30/2019 10:31 Hospitalization Ordered by Brooke Rose MD for Observation. eb Preliminary diagnosis is Heart failure; Pleural effusion in conditions classified elsewhere; Anemia in other chronic diseases classified elsewhere. Bed requested for Telemetry/MedSurg (observation). Status is Observation. Condition is Stable. Problem is an acute exacerbation. Symptoms have improved. UTI on Admission? No. eb 13:50 12:30 04/30/2019 10:31 Hospitalization Ordered by Brooke Rose MD for Observation. mg2 Preliminary diagnosis is Heart failure; Pleural effusion in conditions classified elsewhere; Anemia in other chronic diseases classified elsewhere. Bed requested for Intensive Care Unit. Status is Observation. Condition is Stable. Problem is an acute exacerbation. Symptoms have improved. UTI on Admission? No. eb
--- NOTE | 2019-04-30 11:17 | RAD REPORT ---
EXAM DESCRIPTION: RAD - Chest Single View - 04/30/2019 8:11 am CLINICAL HISTORY: Chest pain, left lower quadrant pain COMPARISON: April 11 TECHNIQUE: AP portable chest image was obtained 0801 hours. FINDINGS: Lung volumes are reduced slightly from comparison. Interstitial markings are prominent thr oughout both lung medley. The patient has bilateral pleural effusions present slightly worse on the r ight. Lung base atelectasis is present. Heart size is normal range for portable imaging. No abnormal vascular engorgement. Trachea is midline. No pneumothorax. No acute bony abnormality seen. No acute a ortic findings suspected. IMPRESSION: 1. Bilateral pleural effusions slightly worse on the right. Bilateral lung base atelecta sis and/or infiltrate could be present. 2. Overall prominence of the interstitial pattern accentuated by shallow inspiration.
[2019-04-30] MEDS ORDERED: FUROSEMIDE 40 MG/4 ML VIAL IV ONE (11:35)
[2019-04-30] MEDS: INSULIN -REGULAR HUMAN 50 UNIT/0.5 ML ML SQ SCH ×3 (11:35→20:47)
--- NOTE | 2019-04-30 12:22 | P.HP ---
Certification for Inpatient Patient admitted to: Inpatient With expected LOS: >2 Midnights Patient will require the following post-hospital care: Residential Practitioner: I am a practitioner with admitting privileges, knowledge of patient current condition, hospital course, and medical plan of care. Services: Services provided to patient in accordance with Admission requirements found in Title 42 Section 412.3 of the Code of Federal Regulations Patient History Date of Service: 04/30/19 Primary Care Provider: None Reason for admission: SOB History of Present Illness: This is a 64-year-old male with significant past medical history of hypertension , hyperlipidemia, diabetes type 2 uncontrolled, CAD which has required bypass however patient has been noncompliant congestive heart failure systolic and with global hypokinesia depressed who presented the ED complaining of having shortness of breath. Patient stated his shortness of breath started about 2 days ago and has got progressively worse and thus he decided to come to the ER. Patient stated that he is unable to lay flat at night time and has not been able to breathe properly for quite some time. Patient denies having any fever however does admit to having some chills while at home. Patient also complains of having chest pain that is intermittent in nature. Nitroglycerin does help with the pain however he has not been taking it for a while. Patient states that he was seen last at [facility] and was told that he needed to get stent placement along with CABG procedure as his heart was not functioning properly. Patient at time however did not have insurance and thus they did not perform the procedure. Patient however does have a history of noncompliance with medication and treatment options in the past as well. Patient was recently admitted to the hospital for hip fracture and at that time cardiology saw him here in the hospital and cleared him for surgery patient had uneventful hospital stay during that time. Patient at that time was discharged with Lasix and metoprolol which according to the son at bedside the patient takes regularly. No other complaints to offer at this time. In the ER patient had the lab work and imaging done and was found to have bilateral large pleural effusion along with CHF exacerbation and thus was admitted to the hospital for further care. Allergies "nexia d" Allergy (Mild, Uncoded 04/04/19 00:26) Unknown Home Medications: Atorvastatin Calcium [Lipitor] 80 mg PO BEDTIME #30 tab 04/12/19 Blood Sugar Diagnostic [Onetouch Verio] 1 each MC DAILY #100 strip 04/12/19 Blood-Glucose Meter [Onetouch Verio] 1 each MC DAILY #1 each 04/12/19 Famotidine [Pepcid*] 20 mg PO BID #30 tab 04/12/19 Furosemide [Lasix*] 20 mg PO DAILY #30 tab 04/12/19 Insulin Glargine,Hum.rec.anlog [Lantus] 20 unit SQ BID #500 ml 04/12/19 Lancets [One Touch Lancets] 1 each MC DAILY #100 each 04/12/19 Metoprolol Tartrate [Lopressor*] 25 mg PO BID 6AM 6PM #60 tab 04/12/19 traMADol HCL [Ultram*] 50 mg PO Q6H PRN #15 tab 04/12/19 - Past Medical/Surgical History Diabetic: Yes -: Diabetes mellitus type 2, insulin-dependent -: CAD -: Hypertension -: Hyperlipidemia -: COPD -: Tobacco abuse -: Knee surgery -: I&D lower right buttock -: hiatal hernia repair -: I and D to the left foot Psychosocial/ Personal History: Patient is single. He lives with his son. - Family History Father -: Heart disease, Hypertension, Lung disease, GI disease, Diabetes, Cancer, Other (see notes) Notes: parkinson's disease Mother -: Heart disease, Hypertension, Diabetes, Cancer Sister -: Cancer - Social History Alcohol use: No CD- Drugs: No Caffeine use: Yes Review of Systems 10-point ROS is otherwise unremarkable Physical Examination - Physical Exam General: Alert, Oriented x3, Cachectic, Mild distress HEENT: Atraumatic, PERRLA, Mucous membr. moist/pink, EOMI, Sclerae nonicteric Neck: Supple, 2+ carotid pulse no bruit, No LAD, Without JVD or thyroid abnormality Respiratory: Normal air movement, Crackles/rales, Expiratory wheezes, Inspiratory wheezes Cardiovascular: Regular rate/rhythm, Normal S1 S2 Gastrointestinal: Normal bowel sounds, No tenderness Musculoskeletal: Swelling (Left leg swelling noted) Integumentary: No rashes Neurological: Normal strength at 5/5 x4 extr, Sensation intact, Cranial nerves 3 -12 intact Lymphatics: No axilla or inguinal lymphadenopathy - Studies Laboratory Data (last 24 hrs) 04/30/19 07:45: PT 12.0, INR 1.02 04/30/19 07:45: WBC 8.9, Hgb 8.0 L, Hct 22.8 L, Plt Count 444 H 04/30/19 07:45: Sodium 142, Potassium 3.5, BUN 24 H, Creatinine 1.09, Glucose 61 L, Magnesium 2.2, Total Bilirubin 0.1 L, AST 14 L, ALT 10 L, Alkaline Phosphatase 78 Assessment and Plan - Problems (Diagnosis) (1) Respiratory distress Current Visit: Yes Status: Acute Plan: Acute respiratory distress most likely secondary to volume overload causing pleural fusion -currently on nasal cannula at 3 L would try to wean patient off here in the hospital as tolerated -patient is currently scheduled for ultrasound guided thoracentesis will followup post procedure -admit patient to the ICU for close monitor (2) CHF exacerbation Current Visit: Yes Status: Acute Plan: Patient with acute CHF exacerbation -echocardiogram done in March 2019 consistent with EF of 30% with global hypokinesis -IV Lasix 40 mg b.i.d. at this time -will consult cardiology at this time as well -patient noncompliant with medication in the past along with procedure -Strict I&O along with low Na diet. Qualifiers: Heart failure type: combined systolic and diastolic Qualified Code(s): I50.43 - Acute on chronic combined systolic (congestive) and diastolic ( congestive) heart failure (3) Pleural effusion Current Visit: Yes Status: Acute Plan: Bilateral pleural fusion most likely secondary to CHF exacerbation -started patient on IV Lasix at this time -Spoke to Dr. Pena from radiology for ultrasound-guided thoracentesis -will keep patient NPO at this time for possible procedure today (4) Left leg swelling Current Visit: Yes Status: Acute Plan: pt with left leg swelling with recent hip repair -will get ultrasound of the lower extremity at this time to rule out any DVT (5) Weakness generalized Current Visit: No Status: Acute Plan: Generalized weakness is most likely secondary to current respiratory status -Will consult PT/OT at this time (6) Diabetes mellitus type II, uncontrolled Onset Date: 11/05/16 Current Visit: No Status: Chronic Plan: Uncontrolled due to Noncomplaince with Medication -Will place on ISS Qualifiers: Glycemic state: with hyperglycemia Qualified Code(s): E11.65 - Type 2 diabetes mellitus with hyperglycemia (7) Hypertension Onset Date: 11/05/16 Current Visit: No Status: Chronic Plan: Will restart home medication Qualifiers: Hypertension type: essential hypertension Qualified Code(s): I10 - Essential (primary) hypertension Discharge Plan: Other Plan to discharge in: Greater than 2 days - Advance Directives Does patient have a Living Will: Yes Does patient have a Durable POA for Healthcare: No - Code Status/Comfort Care Code Status Assessed: Yes Critical Care: No
[2019-04-30] MEDS ORDERED: ACETAMINOPHEN 500 MG TAB PO PRN (13:56)
[2019-04-30] MEDS ORDERED: ONDANSETRON 4 MG/2 ML VIAL IV PRN (13:56)
[2019-04-30] MEDS: FUROSEMIDE 40 MG/4 ML VIAL IV SCH (17:33)
[2019-04-30] MEDS: NICOTINE 21 MG/PAT TD SCH (17:33)
[2019-04-30] MEDS ORDERED: TRAZODONE 50 MG TABLET PO ONE (21:00)
[2019-05-01] MEDS ORDERED: MELATONIN 5 MG TABLET PO ONE (00:56)
[2019-05-01 05:48] LABS: Albumin 1.5 g/dL (3.4-5.0); Bilirubin Total 0.2 mg/dL (0.2-1.0); Potassium 3.7 mmol/L (3.5-5.1); Protein, Total 5.3 g/dL (6.4-8.2)
[2019-05-01] MEDS ORDERED: KCL 20 MEQ/100 mL IVPB 20 MEQ/100 ML BAG IV SCH (06:12)
[2019-05-01] MEDS ORDERED: NA CHLORIDE 0.9% 100 ML ONE (06:28)
[2019-05-01 07:14] LABS: Absolute Lymphocytes (CBC) 1.3 K/uL (0.7-4.9); Basophils % 0.8 % (0-1.3); Lymphocytes % 19.4 % (15.3-44.8); RBC Red Blood Cell Count 3.34 M/uL (4.33-5.43)
[2019-05-01 07:17] LABS: Hematocrit 20.9 % (39.6-49.0)
[2019-05-01] MEDS: INSULIN -REGULAR HUMAN 50 UNIT/0.5 ML ML SQ SCH ×4 (07:30→20:59)
--- NOTE | 2019-05-01 07:55 | RAD REPORT ---
EXAM DESCRIPTION: Roger Single View05/01/2019 6:24 am CLINICAL HISTORY: Shortness of breath COMPARISON: April 30 FINDINGS: Moderate bilateral pleural effusions with bilateral pulmonary opacities and cardiomegaly. Allowing for differences in positioning there probably has been no significant change IMPRESSION: CHF
[2019-05-01] MEDS ORDERED: NA CHLORIDE 0.9% 250 ML ONE (08:26)
[2019-05-01] MEDS: FUROSEMIDE 40 MG/4 ML VIAL IV SCH ×2 (08:29→17:07)
[2019-05-01] MEDS: NICOTINE 21 MG/PAT TD SCH (08:29)
[2019-05-01] MEDS ORDERED: SODIUM CHLORIDE 0.9% 10ML INJ IV PRN (09:59)
[2019-05-01] MEDS ORDERED: TRAZODONE 50 MG TABLET PO PRN (10:57)
--- NOTE | 2019-05-01 11:13 | P.CNS ---
Date of Consult: 05/01/19 Primary Care Provider: None Chief Complaint: SOB History of Present Illness: Patient is 64 years and a recent onset of shortness of breath. This came on rather suddenly patient has a history of coronary artery disease congestive heart failure does not have a regular physician apparently has diabetes stopped all his medication resumed recently was also at [facility] cardiac catheterization done. No interventional procedures were done patient is an active smoker is not taking any bronchodilators in addition is also very anemic BNP very elevated denies any fever chills cough sputum hemoptysis complaining of orthopnea Allergies "nexia d" Allergy (Mild, Uncoded 04/04/19 00:26) Unknown Home Medications: Furosemide [Lasix*] 20 mg PO DAILY #30 tab 04/12/19 Insulin Glargine,Hum.rec.anlog [Lantus] 20 unit SQ BID #500 ml 04/12/19 Metoprolol Tartrate [Lopressor*] 25 mg PO BID 6AM 6PM #60 tab 04/12/19 - Past Medical/Surgical History Diabetic: Yes -: Diabetes mellitus type 2, insulin-dependent -: CAD -: Hypertension -: Hyperlipidemia -: COPD -: Tobacco abuse -: Knee surgery -: I&D lower right buttock -: hiatal hernia repair -: I and D to the left foot -: Left Bipolar Hemiarthroplasty 04/06/19 Psychosocial/ Personal History: Patient is single. He lives with his son. - Family History Father Medical History: Heart disease, Hypertension, Lung disease, GI disease, Diabetes , Cancer, Other (see notes) Notes: parkinson's disease Mother Medical History: Heart disease, Hypertension, Diabetes, Cancer Sister Medical History: Cancer - Social History Smoking Status: Current every day smoker Alcohol use: No CD- Drugs: No Caffeine use: Yes Place of Residence: Home Review of Systems General: Weakness Respiratory: Shortness of Breath Cardiovascular: Edema (Significant lower extremity edema) Physical Examination Temp Pulse Resp BP Pulse Ox 98.5 F 84 14 156/83 H 98 05/01/19 04:00 05/01/19 10:00 05/01/19 10:00 05/01/19 10:00 05/01/19 09:00 General: Alert, Oriented x3 HEENT: Atraumatic Neck: Supple Respiratory: Diminished (Diminished bilaterally) Cardiovascular: Normal S1 S2, Edema (2+ edema) Gastrointestinal: Normal bowel sounds, Soft and benign - Problems (1) Congestive heart failure Current Visit: Yes Status: Acute Plan: Patient is 64 years of age and with severe congestive heart failure admitted with an exacerbation he has bilateral pleural effusion no evidence of sepsis in addition patient is also anemic patient is on low-dose of Lasix severe microcytic anemia slight negative fluid balance patient has a chronic microcytosis mild anemia previous signs studies were done ferritin level was very high patient will need a peripheral smear At this time under not recommend a thoracentesis as he has symmetrical bilateral pleural effusion I recommend aggressive diureses at spironolactone probably has underlying COPD may need bronchodilators at spironolactone Qualifiers: Heart failure type: systolic Heart failure chronicity: acute on chronic Qualified Code(s): I50.23 - Acute on chronic systolic (congestive) heart failure
--- NOTE | 2019-05-01 12:01 | P.PN ---
Subjective Date of Service: 05/01/19 Primary Care Provider: None Chief Complaint: SOB Patient seen and examined at bedside with RN. Chart reviewed. Case discussed with pulmonology at this time. Patient has no improvement on IV Lasix at this time. Is currently scheduled for thoracentesis. Does complain of having some shortness of breath this morning. Review of Systems 10-point ROS is otherwise unremarkable Physical Examination - Vital Signs Temperature: 98.5 F Blood Pressure: 156/79 Pulse: 83 Respirations: 15 Pulse Ox (%): 96 - Physical Exam General: Alert, In no apparent distress HEENT: Atraumatic, PERRLA, EOMI Neck: Supple, JVD not distended Respiratory: Normal air movement, Diminished, Crackles/rales Cardiovascular: Regular rate/rhythm, Normal S1 S2 Gastrointestinal: Normal bowel sounds, No tenderness Musculoskeletal: No tenderness Integumentary: No rashes Neurological: Normal speech, Normal tone, Normal affect Lymphatics: No axilla or inguinal lymphadenopathy - Studies Medications List Reviewed: Yes Assessment And Plan - Current Problems (Diagnosis) (1) Respiratory distress Current Visit: Yes Status: Acute Plan: Acute respiratory distress most likely secondary to volume overload causing bilateral pleural fusion -currently on nasal cannula at 3 L would try to wean patient off here in the hospital as tolerated -patient is currently scheduled for ultrasound guided thoracentesis as patient has not responded well to Lasix and has been having intermittent fevers (2) CHF exacerbation Current Visit: Yes Status: Acute Plan: Patient with acute CHF exacerbation -echocardiogram done in March 2019 consistent with EF of 30% with global hypokinesis -IV Lasix 40 mg b.i.d. at this time -cardiology consulted. Awaiting recommendations -most likely will be needed to start on spironolactone and will restart beta- virgilio as well -patient noncompliant with medication in the past along with procedure -Strict I&O along with low Na diet. Qualifiers: Heart failure type: combined systolic and diastolic Qualified Code(s): I50.43 - Acute on chronic combined systolic (congestive) and diastolic ( congestive) heart failure (3) Pleural effusion Current Visit: Yes Status: Acute Plan: Bilateral pleural fusion most likely secondary to CHF exacerbation -on IV Lasix at this time. -Spoke to Dr. Pena from radiology for ultrasound-guided thoracentesis -will keep patient NPO at this time for possible procedure today (4) Left leg swelling Current Visit: Yes Status: Acute Plan: pt with left leg swelling with recent hip repair -US of the Lower ext negative for DVT (5) Weakness generalized Current Visit: No Status: Acute Plan: Generalized weakness is most likely secondary to current respiratory status -consulted PT/OT at this time (6) Diabetes mellitus type II, uncontrolled Onset Date: 11/05/16 Current Visit: No Status: Chronic Plan: Uncontrolled due to Noncomplaince with Medication -Will place on ISS Qualifiers: Glycemic state: with hyperglycemia Qualified Code(s): E11.65 - Type 2 diabetes mellitus with hyperglycemia (7) Hypertension Onset Date: 11/05/16 Current Visit: No Status: Chronic Plan: Will restart home medication Qualifiers: Hypertension type: essential hypertension Qualified Code(s): I10 - Essential (primary) hypertension Discharge Plan: Home Plan to discharge in: Greater than 2 days - Code Status/Comfort Care Code Status Assessed: Yes Critical Care: No
--- NOTE | 2019-05-01 12:23 | CON ---
History Of Present Illness: Mr. Anderson is 64. He came to the hospital with more than a week of prog ressive dyspnea, swelling, orthopnea, cough, and he was found to be in congestive heart failure both by laboratory exam, physical exam, and chest x-rays. He has had some diuresis and seems to be doing better. He has bilateral pleural effusions on his x-ray as well, the right side being worse. Roughl y 1 month ago, he had a left hip fracture, it was intertrochanteric, but more involved than that, and he required hip surgery with replacement of the ball joint that was done by Dr. Armas. At that p oint, there was no cardiac complication. Since that surgery, the patient has seemingly become very d epressed. He has been smoking 2 packs per day, stopped taking all of his medications, called for [facility], was brought to the ER when his dyspnea was so severe, it frightened him, and since then he is doin g better. Medications: Outpatient medications have actually been none. He has been taking nothing. He is pre scribed Lasix, insulin, and metoprolol. Past Medical History: He has a history of diabetes, hypertension, coronary heart disease documented by cardiac cath at another hospital. At that hospital, no interventions were done, although the adelita ent was told he probably needed bypass surgery. For some reason, it was never done. I wonder if the patient failed to show up or if he was denied for financial reasons, I am not sure. An echocardiogr am in March of this year shows ejection fraction 30%. Physical Examination: Vital Signs: Mr. Anderson is 6 feet tall, 180 pounds. General: Appears older than his stated age. HEENT: Normal. Lungs: He has bibasilar egophony, more so on the right. I do not hear any crackles. Cardiac: There is no significant murmur on cardiac exam. Extremities: Just mild edema. Impression: My impression is that the patient needs probably a thoracentesis. He needs more diuresi s than he has had and he will need some counseling and some help on staying on medicines, we need to see if there is some way we could get physician, who did the cardiac cath transfer, perhap s he could undergo bypass surgery. I think his heart condition anything else that will he lp very much. He has profound anemia as well. It has even dropped overnight. Not sure what the khalif rce of the bleeding is, most likely is GI, and this complicates everything else, so he is going to ge t transfusion, will need to get lots of diuresis, and probably get a thoracentesis. Thank you very much for your kind referral of Mr. Anderson. I will follow him with you. JANEL Voice ID: [id number] Report ID: [id number]
--- NOTE | 2019-05-01 12:46 | RAD REPORT ---
EXAM DESCRIPTION: US - Thoracentesis w/ US Guide - 05/01/2019 12:22 pm CLINICAL HISTORY: Left pleural effusion TECHNIQUE: The risks, benefits alternatives to the procedure were explained to the patient and infor med consent obtained. Skiin ,subcutaneous tissues and pleura anesthetized with lidocaine. Under sonographic guidance, an 8 Spanish catheter was placed into the posterior lower left pleural spa ce. 1.2 liters of clear fluid removed Patient experienced no immediate complication IMPRESSION: Thoracentesis
[2019-05-01] MEDS ORDERED: FUROSEMIDE 20 MG/ 2ML VIAL IV ONE (12:54)
[2019-05-01 13:16] LABS: Hematocrit 26.8 % (39.6-49.0)
--- NOTE | 2019-05-01 13:42 | RAD REPORT ---
EXAM DESCRIPTION: Joset Single View05/01/2019 1:30 pm CLINICAL HISTORY: Left thoracentesis IMPRESSION: Large amount of left pleural effusion has been evacuated. No pneumothorax
[2019-05-01] MEDS: METOPROLOL TAR 25 MG TAB PO SCH (17:07)
[2019-05-02 05:22] LABS: Absolute Lymphocytes (CBC) 1.5 K/uL (0.7-4.9); Basophils % 0.8 % (0-1.3); Hematocrit 25.1 % (39.6-49.0); Lymphocytes % 22.1 % (15.3-44.8); MPV 8.1 fL (7.6-11.3); RBC Red Blood Cell Count 3.86 M/uL (4.33-5.43)
[2019-05-02 05:39] LABS: Albumin 1.6 g/dL (3.4-5.0); Bilirubin Total 0.3 mg/dL (0.2-1.0); Potassium 3.7 mmol/L (3.5-5.1); Protein, Total 5.3 g/dL (6.4-8.2)
[2019-05-02] MEDS: METOPROLOL TAR 25 MG TAB PO SCH ×2 (05:42→17:34)
[2019-05-02 06:40] LABS: Magnesium 2.1 mg/dL (1.8-2.4); Phosphorus 3.7 mg/dL (2.5-4.9)
[2019-05-02] MEDS: INSULIN -REGULAR HUMAN 50 UNIT/0.5 ML ML SQ SCH ×4 (07:30→20:51)
[2019-05-02] MEDS ORDERED: POTASSIUM 25 MEQ EFFERV TAB PO ONE (09:00)
[2019-05-02] MEDS ORDERED: PANTOPRAZOLE 40 MG INJ IVP SCH (09:00)
[2019-05-02] MEDS: FUROSEMIDE 40 MG/4 ML VIAL IV SCH (09:20)
[2019-05-02] MEDS: NICOTINE 21 MG/PAT TD SCH (09:20)
--- NOTE | 2019-05-02 09:57 | P.PN ---
Subjective Date of Service: 05/02/19 Primary Care Provider: None Chief Complaint: SOB Subjective: Improving (Patient shortness of breath has improved status post thoracentesis on the right side) Review of Systems General: Weakness Respiratory: Shortness of Breath Physical Examination - Vital Signs Temperature: 98.5 F Blood Pressure: 148/75 Pulse: 73 Respirations: 18 Pulse Ox (%): 99 - Physical Exam General: Alert, In no apparent distress, Oriented x3 Neck: Supple Respiratory: Clear to auscultation bilaterally Cardiovascular: Regular rate/rhythm, Edema - Studies Medications List Reviewed: Yes Assessment & Plan - Problems (Diagnosis) (1) Congestive heart failure Current Visit: Yes Status: Acute Plan: Patient has congestive heart failure status post right-sided thoracentesis over no diagnostic studies were sent on the pleural fluid I have ordered a chest x- ray at spironolactone change to Lasix once a day patient is in negative fluid balance Qualifiers: Heart failure type: systolic Heart failure chronicity: acute on chronic Qualified Code(s): I50.23 - Acute on chronic systolic (congestive) heart failure
--- NOTE | 2019-05-02 10:19 | RAD REPORT ---
EXAM DESCRIPTION: RAD - Chest Single View - 05/02/2019 10:02 am CLINICAL HISTORY: Shortness of breath COMPARISON: Portable chest May 01, CT chest April 30 TECHNIQUE: AP portable chest image was obtained 0941 hours . FINDINGS: No pneumothorax is present. Bilateral pleural effusions are still evident, appearing worse on the right. Heart size is normal. Central vasculature is mildly prominent. No acute bony abnormali ty seen. No acute aortic findings suspected. IMPRESSION: Bilateral pleural effusions are evident appearing worse on the right. Chest findings are not substantially different from comparison. No pneumothorax.
[2019-05-02] MEDS: SPIRONOLACTONE 25 MG TABLET PO SCH ×2 (11:01→20:43)
[2019-05-02 12:36] LABS: Ferritin 1059.7 ng/mL (26-388)
--- NOTE | 2019-05-02 13:21 | PN ---
Mr. Anderson is doing much better. He would be in a very stable condition, if he would follow directio ns and stop smoking and take his medicines. At this point, he is stable enough to be transferred out to a regular telemetry floor. I am not sure if GI is going to do a workup on him or not. His hemog lobin seems to be stable overnight. We will check it again tomorrow. ZAIRE/ERLIN Voice ID: [id number] Report ID: [id number]
[2019-05-02] MEDS ORDERED: DIPHENHYDRAMINE 25 MG TAB/CAP PO PRN (14:20)
[2019-05-02] MEDS: ENOXAPARIN 40 MG/0.4 ML SQ SCH (16:38)
[2019-05-02] MEDS: INSULIN GLARGINE 100 UNITS/ML SQ SCH (20:49)
[2019-05-03 05:37] LABS: Absolute Lymphocytes (CBC) 1.8 K/uL (0.7-4.9); Basophils % 0.8 % (0-1.3); Hematocrit 27.1 % (39.6-49.0); Lymphocytes % 18.2 % (15.3-44.8); MPV 8.3 fL (7.6-11.3); RBC Red Blood Cell Count 4.12 M/uL (4.33-5.43)
[2019-05-03 05:58] LABS: Albumin 1.8 g/dL (3.4-5.0); Bilirubin Total 0.3 mg/dL (0.2-1.0); Potassium 3.8 mmol/L (3.5-5.1); Protein, Total 5.8 g/dL (6.4-8.2)
[2019-05-03] MEDS: METOPROLOL TAR 25 MG TAB PO SCH ×2 (05:58→17:11)
[2019-05-03] MEDS: INSULIN -REGULAR HUMAN 50 UNIT/0.5 ML ML SQ SCH ×4 (07:30→20:03)
[2019-05-03] MEDS ORDERED: POTASSIUM CL SA 10 MEQ TAB PO ONE (09:00)
[2019-05-03] MEDS ORDERED: FUROSEMIDE 40 MG/4 ML VIAL IV SCH (09:00)
[2019-05-03] MEDS: INSULIN GLARGINE 100 UNITS/ML SQ SCH ×2 (09:00→19:59)
[2019-05-03] MEDS: NICOTINE 21 MG/PAT TD SCH (09:09)
[2019-05-03] MEDS: SPIRONOLACTONE 25 MG TABLET PO SCH ×2 (09:11→20:02)
--- NOTE | 2019-05-03 10:01 | RAD REPORT ---
EXAM DESCRIPTION: RADChest Single View05/03/2019 6:15 am CLINICAL HISTORY: Chest pain COMPARISON: May 02, 2019 FINDINGS: No change in the right pleural effusion Small left pleural effusion without pneumothorax Heart remains enlarged. The interstitial pulmonary edema has partially resolved
--- NOTE | 2019-05-03 11:18 | PN ---
Mr. Anderson seems to be doing well enough. He now has family support. He is going to live with his s on and I think he can probably do fairly well on medical therapy. I would be glad to see him in [facility]. He has established care with other appointment coordinator. It is his choice, where he wants to get [facility] after he goes home. JANEL Voice ID: [id number] Report ID: [id number]
[2019-05-03] MEDS ORDERED: ZOLPIDEM TARTRATE 5 MG TABLET PO PRN (12:11)
[2019-05-03] MEDS ORDERED: AMLODIPINE 5 MG TAB PO ONE (13:00)
--- NOTE | 2019-05-03 17:01 | PN ---
Subjective: Currently, patient is sitting in bed. He is eating his lunch. He is feeling better. S hortness of breath still mild. There is no chest pain or palpitations. No abdominal pain. No nause a or vomiting. Review of Systems: Otherwise negative. Objective: Vital Signs: Currently vital signs; blood pressure is 146/76, respiratory rate 18, pulse 70, temperature 97.7, saturating 96% on room air. General: Patient is alert and oriented x3. Does not look in any distress. HEENT: Atraumatic, normocephalic. PERRLA. Oral mucosa is moist. Neck: Supple. No JVD. No carotid bruits. Chest: Clear to auscultation with decreased breath sounds at the bases, right more than left. Heart: Regular rate and rhythm. S1, S2 normal. No gallop or murmur. Abdomen: Soft, nontender. No masses. No hepatosplenomegaly. Bowel sounds heard. Extremities: No clubbing, no cyanosis, no edema. No calf tenderness. Neurologic: Grossly intact. Laboratory Data: Today, CBC with hemoglobin 8.9, normal white blood cells and platelets. Chemistry within normal except for BUN of 30, creatinine 1.16. Assessment And Plan: 1.Respiratory distress, acute secondary to volume overload secondary to bilateral pleural effusions. Patient is doing much better since he has thoracentesis and fluid removed from his lungs. No fluid sent for cytology for analysis. Chest x-ray today showed bilateral pleural effusions still, but the patient hemodynamically looks better and not hypoxic. If patient tolerated the physical therapy wel l today without hypoxia, he may be able to go home in a.m. 2.Congestive heart failure exacerbation, acute. Patient had echocardiogram in March 2019 with t he EF of 50% with global hypokinesia. Continue on Lasix IV 40 twice a day. We will switch that to o ral upon discharge. I appreciate Cardiology's recommendation. 3.Left leg swelling. No DVT on Doppler. Could be recent hip surgery. 4.Generalized weakness. Physical therapy working with the patient and then, we will wait for recomm endations in terms of discharge home versus to rehab. 5.Diabetes mellitus, little bit controlled. We will check hemoglobin A1c. Patient is on Lantus. I will increase the dose to 22 units instead of 20. Continue insulin sliding scale. 6.Hypertension, borderline control. I will add low dose of Norvasc today. 7.Discharge plan hopefully soon based on PT/OT recommendations. MT/MODL Voice ID: [id number] Report ID: [id number]
[2019-05-03] MEDS: LACTULOSE 20 GM/30 ML UCUP PO SCH ×2 (17:09→23:13)
[2019-05-03] MEDS: ENOXAPARIN 40 MG/0.4 ML SQ SCH (17:09)
[2019-05-04] MEDS: METOPROLOL TAR 25 MG TAB PO SCH (05:27)
[2019-05-04] MEDS: LACTULOSE 20 GM/30 ML UCUP PO SCH (05:27)
[2019-05-04 05:32] VITALS: BMI 22.3
[2019-05-04 05:43] LABS: Absolute Lymphocytes (CBC) 1.7 K/uL (0.7-4.9); Hematocrit 25.7 % (39.6-49.0); Lymphocytes % 21.1 % (15.3-44.8); MPV 8.2 fL (7.6-11.3); RBC Red Blood Cell Count 3.89 M/uL (4.33-5.43)
[2019-05-04 05:57] LABS: Albumin 1.8 g/dL (3.4-5.0); Bilirubin Total 0.2 mg/dL (0.2-1.0); Potassium 3.9 mmol/L (3.5-5.1); Protein, Total 5.5 g/dL (6.4-8.2)
[2019-05-04 06:28] LABS: Anisocytosis 1+; Blood Morphology Comment NOTED (NOT SEEN); Elliptocytes 1+; Hypochromasia 2+; Platelet Estimate ADEQ; Poikilocytosis 2+; Urine White Blood Cell Casts OK
[2019-05-04 06:29] LABS: Burr Cells 1+
[2019-05-04] MEDS: INSULIN -REGULAR HUMAN 50 UNIT/0.5 ML ML SQ SCH ×2 (07:30→11:30)
--- NOTE | 2019-05-04 08:32 | PN ---
Mr. Anderson seems stable enough to be discharged home today. I think if he stays on his medicines, av oids alcohol and tobacco, he will do well. He is not having unstable angina symptoms at all. ZAIRE/ERLIN Voice ID: [id number] Report ID: [id number]
[2019-05-04] MEDS ORDERED: FUROSEMIDE 40 MG TABLET PO SCH (09:00)
[2019-05-04] MEDS: INSULIN GLARGINE 100 UNITS/ML SQ SCH (09:00)
[2019-05-04] MEDS: SPIRONOLACTONE 25 MG TABLET PO SCH (09:38)
[2019-05-04] MEDS: NICOTINE 21 MG/PAT TD SCH (09:39)
[2019-05-04 11:21] VITALS: O2SAT 96
[2019-05-04] MEDS ORDERED: POTASSIUM CL SA 10 MEQ TAB PO ONE (12:00)
[2019-05-04 12:58] VITALS: BP 147/72; TEMP 97.6
--- NOTE | 2019-05-04 14:08 | P.DS ---
Admission Date: 04/30/19 Discharge Date: 05/04/19 Primary Care Provider: None Disposition: ROUTINE DISCHARGE Discharge Condition: GOOD Reason for Admission: SOB Consultations: Cardiology - Problems (1) Respiratory distress Status: Acute (2) CHF exacerbation Status: Acute Qualifiers: Heart failure type: combined systolic and diastolic Qualified Code(s): I50.43 - Acute on chronic combined systolic (congestive) and diastolic ( congestive) heart failure (3) Pleural effusion Status: Acute (4) Left leg swelling Status: Acute (5) Weakness generalized Status: Acute (6) Diabetes mellitus type II, uncontrolled Onset Date: 11/05/16 Status: Chronic Qualifiers: Glycemic state: with hyperglycemia Qualified Code(s): E11.65 - Type 2 diabetes mellitus with hyperglycemia (7) Hypertension Onset Date: 11/05/16 Status: Chronic Qualifiers: Hypertension type: essential hypertension Qualified Code(s): I10 - Essential (primary) hypertension Brief History of Present Illness: This is a 64-year-old male with significant past medical history of hypertension , hyperlipidemia, diabetes type 2 uncontrolled, CAD which has required bypass however patient has been noncompliant congestive heart failure systolic and with global hypokinesia depressed who presented the ED complaining of having shortness of breath. Patient stated his shortness of breath started about 2 days ago and has got progressively worse and thus he decided to come to the ER. Patient stated that he is unable to lay flat at night time and has not been able to breathe properly for quite some time. Patient denies having any fever however does admit to having some chills while at home. Patient also complains of having chest pain that is intermittent in nature. Nitroglycerin does help with the pain however he has not been taking it for a while. Patient states that he was seen last at [facility] and was told that he needed to get stent placement along with CABG procedure as his heart was not functioning properly. Patient at time however did not have insurance and thus they did not perform the procedure. Patient however does have a history of noncompliance with medication and treatment options in the past as well. Patient was recently admitted to the hospital for hip fracture and at that time cardiology saw him here in the hospital and cleared him for surgery patient had uneventful hospital stay during that time. Patient at that time was discharged with Lasix and metoprolol which according to the son at bedside the patient takes regularly. No other complaints to offer at this time. In the ER patient had the lab work and imaging done and was found to have bilateral large pleural effusion along with CHF exacerbation and thus was admitted to the hospital for further care. Hospital Course: Overall during the hospital stay patient remained stable Patient was initially admitted to the hospital for acute respiratory failure most likely secondary to CHF exacerbation secondary to noncompliance with medication. Patient was started on IV Lasix while here in the hospital. Patient was also noted to have bilateral pleural effusion and thus had thoracentesis ordered as patient was not improving on Lasix while here in the hospital. Post thoracentesis patient had marked improvement in his symptoms. Lasix was discontinued here while in the hospital with the baby started on spironolactone which he was started on while here in the hospital. Cardiology was also consulted who agreed with the plan. Once patient had marked improvement in diuresed adequately he was transferred to the regular floor from the ICU. While here in the hospital patient had an episode of anemia where his hemoglobin was 6.8. No active bleeding was noted. Patient was transfused 1 unit of PRBC after which his hemoglobin remained stable while here in the hospital. Patient did well overall while here in the hospital and thus was discharged home under stable condition was given prescription for Lasix and spironolactone. Patient has 6. Congestive heart failure with global hypokinesis which he has been non compliant with medications for. Patient was educated extensively regarding medication compliance along with dietary changes as well. Patient demonstrate understanding and thus was discharged home under stable condition. Vital Signs/Physical Exam: Temp Pulse Resp BP Pulse Ox 97.6 F 72 18 147/72 H 93 05/04/19 12:00 05/04/19 12:00 05/04/19 12:00 05/04/19 12:00 05/04/19 12:00 General: Alert, In no apparent distress HEENT: Atraumatic, PERRLA, EOMI Neck: Supple, JVD not distended Respiratory: Clear to auscultation bilaterally, Normal air movement Cardiovascular: Regular rate/rhythm, Normal S1 S2 Gastrointestinal: Normal bowel sounds, No tenderness Musculoskeletal: No tenderness Integumentary: No rashes Neurological: Normal speech, Normal tone, Normal affect Lymphatics: No axilla or inguinal lymphadenopathy Laboratory Data at Discharge: WBC 8.0 K/uL (4.3-10.9) D 05/04/19 05:11 Hgb 8.5 g/dL (13.6-17.9) L 05/04/19 05:11 Hct 25.7 % (39.6-49.0) L 05/04/19 05:11 Plt Count 310 K/uL (152-406) 05/04/19 05:11 PT 12.0 SECONDS (9.5-12.5) 04/30/19 07:45 INR 1.02 04/30/19 07:45 Sodium 141 mmol/L (136-145) 05/04/19 05:11 Potassium 3.9 mmol/L (3.5-5.1) 05/04/19 05:11 BUN 25 mg/dL (7-18) H 05/04/19 05:11 Creatinine 1.12 mg/dL (0.55-1.3) 05/04/19 05:11 Glucose 47 mg/dL (74-106) L* 05/04/19 05:11 Phosphorus 3.7 mg/dL (2.5-4.9) 05/02/19 04:47 Magnesium 2.1 mg/dL (1.8-2.4) 05/02/19 04:47 Total Bilirubin 0.2 mg/dL (0.2-1.0) 05/04/19 05:11 AST 19 U/L (15-37) 05/04/19 05:11 ALT 11 U/L (12-78) L 05/04/19 05:11 Alkaline Phosphatase 64 U/L (45-117) 05/04/19 05:11 Home Medications: Insulin Glargine,Hum.rec.anlog [Lantus] 20 unit SQ BID #500 ml 04/12/19 Metoprolol Tartrate [Lopressor*] 25 mg PO BID 6AM 6PM #60 tab 04/12/19 Furosemide [Lasix*] 40 mg PO DAILY #30 tab 05/04/19 Spironolactone [Aldactone*] 25 mg PO BID #60 tab 05/04/19 New Medications: Furosemide [Lasix*] 40 mg PO DAILY #30 tab Spironolactone [Aldactone*] 25 mg PO BID #60 tab Diet: Regular Activity: Ad sebastian Followup: Ruben Elizabeth MD [ACTIVE - CAN ADMIT] - 1 Week
--- NOTE | 2019-05-07 10:20 | PN ---
Subjective: Currently, patient is sitting in the chair. He is eating his lunch. He was able to [facility] pretty well with physical therapy. He denies any chest pain, shortness of breath. All resolved af ter yesterday. Review of Systems: Otherwise negative. Objective: Vital Signs: Blood pressure 132/77, respiratory rate 18, pulse 75, temperature 98.5. General: Patient is alert, oriented x3. Does not look in any distress. HEENT: Atraumatic, normocephalic. PERRLA. Oral mucosa is moist. Heart: Regular rate and rhythm. S1, S2 normal. No gallop or murmur. Chest: Decreased breath sounds at the bases with fine crackles. There is no expiratory wheezing. Abdomen: Soft, nontender. No masses. No hepatosplenomegaly. Positive bowel sounds. Extremities: No clubbing, cyanosis, or edema. No calf tenderness. Neurologic: Grossly intact. Skin: No rash, but there is some ecchymosis. Laboratory Data: Labs today showed CBC was normal except for hemoglobin 8.2, platelets 339, white bl ood cells was normal except for BUN of 27, creatinine 1.19, GFR of 62, glucose 152, calciu m 8.1. Iron profile with low iron of 48, ferritin of . Assessment And Plan: 1.Respiratory distress secondary to volume overload, status post bilateral pleural effusion, status post . Patient is feeling much better . No diagnostic studies sent for __ for some reason. Continue patient on Lasix. Appreciate Pulmonary followup. 2.Congestive heart failure exacerbation. Echocardiogram done last month showed ejection fraction of 50% with global hypokinesia. Patient on IV Lasix 40 twice a day, continue with that. Cardiology co nsulted, but recommendation still pending. 3.Left leg swelling improved, status post recent hip repair. Patient had ultrasound of the left low er extremity, it was negative for deep venous thrombosis. 4.Fatigue with recurrent admission secondary to deconditioning. Continue PT, OT. 5.Diabetes mellitus. Patient on insulin sliding scale. We will resume his Lantus twice a day today . 6.Hypertension, well controlled on home medication. 7.Insomnia at night. We will start Benadryl. 8.Deep vein thrombosis prophylaxis. We will start patient on Lovenox 40 once a day. SHAQUILLE/ERLIN Voice ID: [id number] Report ID: [id number]
== END 2019-05-04 13:59 | disposition home or self-care (01) | DRG 291 ==
LOC: ER 07:31 → ERHOLD 11:35 → 3RD-ICU 13:21 → 2ND 05-02 14:26
PROVIDERS: ADMIT Family Medicine; ATTEND Family Medicine
PROC: 0W9B3ZZ Drainage of Left Pleural Cavity, Percutaneous Approach (ICD-10-PCS; principal; 2019-05-01)
DX: I50.43 Acute on chronic combined systolic (congestive) and diastolic (congestive) heart failure (principal); J96.00 Acute respiratory failure, unspecified whether with hypoxia or hypercapnia; J90 Pleural effusion, not elsewhere classified; I11.0 Hypertensive heart disease with heart failure; E78.5 Hyperlipidemia, unspecified; R63.6 Underweight; I25.10 Atherosclerotic heart disease of native coronary artery without angina pectoris; M79.89 Other specified soft tissue disorders; Z68.22 Body mass index [BMI] 22.0-22.9, adult; Z79.4 Long term (current) use of insulin
CPT/HCPCS: 32555; 36415; 71045; 71275; 80048; 80053; 80076; 82274; 82728; 82962; 83540; 83735; 83880; 84100; 84466; 84484; 85014; 85018; 85025; 85610; 86850; 86900; 86901; 87040; 93005; 93971; 96374; 97110; 97112; 97116; 97161; 97530; 99285; C9113; J1650; J1815; J1940; J2405; J7030; P9016; Q9967

== ENCOUNTER 2019-06-25 10:42 | Observation (INO) | payer SELFPAY ==
--- OUTSIDE RECORDS SUMMARY | 2019-06-25 11:15 | XMS REPORT ---
:1955 Author Organization [facility] Address [address] [place] [address] [address] [place] [address] Care Team Providers Name Role Phone Unavailable Unavailable Unavailable Problems This patient has no known problems. Allergies, Adverse Reactions, Alerts This patient has no known allergies or adverse reactions. Medications This patient has no known medications.
[2019-06-25] MEDS ORDERED: ASPIRIN 81 MG CHEWABLE TABLET ONE (11:28)
[2019-06-25] MEDS ORDERED: FUROSEMIDE 100 MG/10 ML VIAL IV ONE (11:28)
[2019-06-25 11:42] LABS: Absolute Lymphocytes (CBC) 1.2 K/uL (0.7-4.9); Basophils % 1.2 % (0-1.3); Hematocrit 30.8 % (39.6-49.0); Lymphocytes % 16.2 % (15.3-44.8); MPV 9.3 fL (7.6-11.3); RBC Red Blood Cell Count 4.75 M/uL (4.33-5.43)
[2019-06-25 11:46] LABS: Protime INR 0.97
--- NOTE | 2019-06-25 11:53 | RAD REPORT ---
EXAM DESCRIPTION: RAD - Chest Single View - 06/25/2019 11:40 am CLINICAL HISTORY: CHEST PAIN Chest pain. COMPARISON: Chest Single View dated 05/03/2019; Chest Single View dated 05/02/2019; Chest Single Vie w dated 05/01/2019; Chest Single View dated 05/01/2019 FINDINGS: Portable technique limits examination quality. Mild improvement is seen in the bilateral pulmonary opacities and pleural effusions since the compara tive study. This likely indicates improvement in volume overload/CHF. The heart is moderately enlarge d in size. No displaced fractures.
[2019-06-25 12:05] LABS: ALT/SGPT 13 U/L (12-78); AST/SGOT 12 U/L (15-37); Albumin 2.4 g/dL (3.4-5.0); Alkaline Phosphatase 87 U/L (45-117); BUN Blood Urea Nitrogen 21 mg/dL (7-18); Bicarbonate 27 mmol/L (21-32); Bilirubin Direct < 0.1 mg/dL (0-0.2); Bilirubin Total 0.2 mg/dL (0.2-1.0); Glucose Level 271 mg/dL (74-106); Magnesium 2.3 mg/dL (1.8-2.4); NT PRO-BNP 16304 pg/mL (<125); Potassium 3.6 mmol/L (3.5-5.1); Protein, Total 6.1 g/dL (6.4-8.2); Sodium Level 140 mmol/L (136-145); Troponin (Emerg Dept Use Only) 0.03 ng/mL (0.0-0.045)
--- NOTE | 2019-06-25 12:23 | EDPHYS ---
Physician Documentation [facility] Name: Mumtaz Anderson Age: 64 yrs Sex: Male : 1955 Arrival Date: 06/25/2019 Time: 10:49 Bed 6 Private MD: ED Physician Jax Lopes HPI: 06/25 12:07 This 64 yrs old Male presents to ER via EMS with complaints of Chest Pressure.jr8 12:07 The patient or guardian reports chest pain that is located primarily in the substernal jr8 area. Onset: acutely, today. The pain does not radiate. Associated signs and symptoms: Pertinent positives: shortness of breath. The chest pain is described as a heaviness. Duration: The patient or guardian reports a single episode, that is now resolved. Modifying factors: The symptoms are alleviated by nothing. the symptoms are aggravated by activity. Severity of pain: At its worst the pain was moderate in the emergency department the pain has resolved. The patient has experienced similar episodes in the past, a few times. The patient has not recently seen a physician. Historical: - Allergies: 10:55 Nexium D; jl7 - PMHx: 10:55 Hypertension; Diabetes - IDDM; jl7 - PSHx: 10:55 left hip; Knee surgery; foot; hand; jl7 - Immunization history:: Adult Immunizations unknown. - Social history:: Smoking status: Patient uses tobacco products, smokes 1.5 packs per day. - Ebola Screening: : No symptoms or risks identified at this time. ROS: 12:07 Eyes: Negative for injury, pain, redness, and discharge, ENT: Negative for injury, jr8 pain, and discharge, Neck: Negative for injury, pain, and swelling, Abdomen/GI: Negative for abdominal pain, nausea, vomiting, diarrhea, and constipation, Back: Negative for injury and pain, MS/Extremity: Negative for injury and deformity, Skin: Negative for injury, rash, and discoloration, Neuro: Negative for headache, weakness, numbness, tingling, and seizure. 12:07 Cardiovascular: Positive for chest pain, edema, orthopnea, Negative for edema, palpitations, paroxysmal nocturnal dyspnea. 12:07 Respiratory: Positive for dyspnea on exertion, shortness of breath. Exam: 12:20 Eyes: Pupils equal round and reactive to light, extra-ocular motions intact. Lids and jr8 lashes normal. Conjunctiva and sclera are non-icteric and not injected. Cornea within normal limits. Periorbital areas with no swelling, redness, or edema. ENT: Nares patent. No nasal discharge, no septal abnormalities noted. Tympanic membranes are normal and external auditory canals are clear. Oropharynx with no redness, swelling, or masses, exudates, or evidence of obstruction, uvula midline. Mucous membranes moist. Neck: Trachea midline, no thyromegaly or masses palpated, and no cervical lymphadenopathy. Supple, full range of motion without nuchal rigidity, or vertebral point tenderness. No Meningismus. Abdomen/GI: Soft, non-tender, with normal bowel sounds. No distension or tympany. No guarding or rebound. No evidence of tenderness throughout. Back: No spinal tenderness. No costovertebral tenderness. Full range of motion. Skin: Warm, dry with normal turgor. Normal color with no rashes, no lesions, and no evidence of cellulitis. MS/ Extremity: Pulses equal, no cyanosis. Neurovascular intact. Full, normal range of motion. Neuro: Awake and alert, GCS 15, oriented to person, place, time, and situation. Cranial nerves II-XII grossly intact. Motor strength 5/5 in all extremities. Sensory grossly intact. Cerebellar exam normal. Normal gait. 12:20 Cardiovascular: Rate: normal, Rhythm: regular, Pulses: Pulses are 2+ in right radial artery and left radial artery. Heart sounds: normal, normal S1and S2, no S3 or S4, no murmur, no rub, no gallop, Edema: 1+ edema to level of left midcalf, left ankle, right midcalf and right ankle, JVD: is not appreciated. 12:20 Respiratory: mild respiratory distress is noted, Respirations: tachypnea, Breath sounds: rales, that are mild, are located in both bases. Vital Signs: 10:55 BP 187 / 97; Pulse 95; Resp 19 S; Temp 98(O); Pulse Ox 95% on R/A; Weight 68.04 kg (R); jl7 Pain 0/10; 11:37 BP 173 / 98; Pulse 92 MON; Resp 17; Pulse Ox 97% on R/A; sg 12:00 BP 178 / 104; Pulse 94; Resp 16 S; Pulse Ox 98% on R/A; Pain 0/10; jl7 12:30 BP 177 / 95; Pulse 96; Resp 19 S; Pulse Ox 97% on R/A; jl7 13:00 BP 161 / 88; Pulse 96; Resp 21 S; Pulse Ox 97% on R/A; jl7 13:30 BP 170 / 96; Pulse 96; Resp 20 S; Pulse Ox 97% on R/A; jl7 14:00 BP 165 / 94; Pulse 97; Resp 19 S; Pulse Ox 97% on R/A; jl7 MDM: 11:10 Patient medically screened. jr8 12:20 The patient was given aspirin in the Emergency Department. Data reviewed: vital signs, [facility] nurses notes, lab test result(s), EKG, radiologic studies, plain films. Data interpreted: Pulse oximetry: on room air is 97 %. Interpretation: normal. Counseling: I had a detailed discussion with the patient and/or guardian regarding: the historical points, exam findings, and any diagnostic results supporting the discharge/admit diagnosis, lab results, radiology results, the need for further work-up and treatment in the hospital. 06/25 11:10 Order name: Basic Metabolic Panel; Complete Time: 12:11 06/25 11:10 Order name: CBC with Diff; Complete Time: 13:42 8 06/25 11:10 Order name: LFT's; Complete Time: 12:11 06/25 11:10 Order name: Magnesium; Complete Time: 12:11 06/25 11:10 Order name: NT PRO-BNP; Complete Time: 12:11 06/25 11:10 Order name: PT-INR; Complete Time: 11:50 8 06/25 11:10 Order name: Troponin (emerg Dept Use Only); Complete Time: 12:11 06/25 11:10 Order name: XRAY Chest (1 view); Complete Time: 12:11 8 06/25 11:10 Order name: EKG; Complete Time: 11:12 8 06/25 13:37 Order name: CBC Smear Scan; Complete Time: 13:42 EDSC 06/25 11:10 Order name: Cardiac monitoring; Complete Time: 11:21 8 06/25 11:10 Order name: EKG - Nurse/Tech; Complete Time: 11:21 8 06/25 11:10 Order name: IV Saline Lock; Complete Time: :36 8 06/25 11:10 Order name: Labs collected and sent; Complete Time: 36 8 06/25 11:10 Order name: O2 Per Protocol; Complete Time: :36 8 06/25 11:10 Order name: O2 Sat Monitoring; Complete Time: :36 8 Administered Medications: 11:56 Drug: Aspirin Chewable Tablet 324 mg Route: PO; jl7 12:30 Follow up: Response: No adverse reaction jl7 11:56 Drug: Lasix 60 mg Route: IVP; Site: left antecubital; jl7 12:30 Follow up: Response: No adverse reaction jl7 12:35 Drug: hydrALAZINE 10 mg Route: IV; Rate: calculated rate; Site: left antecubital; jl7 12:35 Follow up: IV Status: Completed infusion jl7 13:00 Follow up: Response: No adverse reaction; Blood pressure is lowered 7 14:11 Not Given (not needed): Nitroglycerin 0.4 mg Sublingual once; every five minute if jl7 needed x3 Disposition: 15:57 Co-signature as Attending Physician, Jax Lopes MD I agree with the assessment and kdr plan of care. Disposition: 06/25/19 12:21 Hospitalization ordered by Matthew Michelle for Observation. Preliminary diagnosis are Acute combined systolic (congestive) and diastolic (congestive) heart failure, Chest pain, unspecified. - Bed requested for Telemetry/MedSurg (observation). - Status is Observation. ss - Condition is Stable. - Problem is new. - Symptoms have improved. UTI on Admission? No Signatures: Dispatcher [employer] EDSC Jax Lopes MD MD [facility] Marilyn Cunningham RN RN ss Barron Stover PA PA jr8 Nuzhat العلي RN RN jl7 Christina Betts Corrections: (The following items were deleted from the chart) 12:46 12:21 Hospitalization Ordered by Matthew Michelle DO for Observation. Preliminary eb diagnosis is Acute combined systolic (congestive) and diastolic (congestive) heart failure; Chest pain, unspecified. Bed requested for Telemetry/MedSurg (observation). Status is Observation. Condition is Stable. Problem is new. Symptoms have improved. UTI on Admission? No. jr8 13:47 12:46 06/25/2019 12:21 Hospitalization Ordered by Matthew Michelle DO for Observation. eb Preliminary diagnosis is Acute combined systolic (congestive) and diastolic (congestive) heart failure; Chest pain, unspecified. Bed requested for Telemetry/MedSurg (observation). Status is Observation. Condition is Stable. Problem is new. Symptoms have improved. UTI on Admission? No. eb 14:49 13:47 06/25/2019 12:21 Hospitalization Ordered by Matthew Michelle DO for Observation. ss Preliminary diagnosis is Acute combined systolic (congestive) and diastolic (congestive) heart failure; Chest pain, unspecified. Bed requested for Telemetry/MedSurg (observation). Status is Observation. Condition is Stable. Problem is new. Symptoms have improved. UTI on Admission? No. eb
--- NOTE | 2019-06-25 12:23 | ER ---
Nurse's Notes [facility] Name: Mumtaz Anderson Age: 64 yrs Sex: Male : 1955 Arrival Date: 06/25/2019 Time: 10:49 Bed 6 Private MD: Diagnosis: Acute combined systolic (congestive) and diastolic (congestive) heart failure;Chest pain, unspecified Presentation: 06/25 10:49 Presenting complaint: EMS states: Shortness of breath and chest pressure x 4 days. Gave jl7 Nitro SL x 1, symptoms resolved. Transition of care: patient was not received from another setting of care. Onset of symptoms was June 21, 2019. Risk Assessment: Do you want to hurt yourself or someone else? Patient reports no desire to harm self or others. Initial Sepsis Screen: Does the patient meet any 2 criteria? HR > 90 bpm. Does the patient have a suspected source of infection? No. Patient's initial sepsis screen is negative. Care prior to arrival: Medication(s) given: Normal saline infusion, 500 mL, Nitro sublingual x 1 IV initiated. 20 GA, in the left antecubital area. 10:49 Method Of Arrival: EMS: [facility] jl7 10:49 Acuity: VIDAL 2 jl7 Triage Assessment: 10:55 General: Appears in no apparent distress. uncomfortable, Behavior is calm, cooperative, jl7 appropriate for age. Pain: Denies pain. Complains of pain in chest Pain does not radiate. Pain currently is 0 out of 10 on a pain scale. at worst was 4 out of 10 on a pain scale. Quality of pain is described as pressure, Pain began x5 days Is continuous. Neuro: Level of Consciousness is awake, alert, obeys commands, Oriented to person, place, time, situation. Cardiovascular: Heart tones present Patient's skin is warm and dry. Respiratory: Airway is patent Respiratory effort is even, unlabored, Respiratory pattern is regular, symmetrical, Breath sounds are clear bilaterally. GI: No signs and/or symptoms were reported involving the gastrointestinal system. : No signs and/or symptoms were reported regarding the genitourinary system. Derm: Skin is dry, Skin is pale, Skin temperature is warm. Musculoskeletal: No signs and/or symptoms reported regarding the musculoskeletal system. Historical: - Allergies: 10:55 Nexium D; jl7 - PMHx: 10:55 Hypertension; Diabetes - IDDM; jl7 - PSHx: 10:55 left hip; Knee surgery; foot; hand; jl7 - Immunization history:: Adult Immunizations unknown. - Social history:: Smoking status: Patient uses tobacco products, smokes 1.5 packs per day. - Ebola Screening: : No symptoms or risks identified at this time. Screenin:00 Abuse screen: Denies threats or abuse. Denies injuries from another. Nutritional jl7 screening: No deficits noted. Tuberculosis screening: No symptoms or risk factors identified. Fall Risk IV access (20 points). Total Walter Fall Scale indicates No Risk (0-24 pts). Assessment: 11:00 General: See triage assessment. jl7 11:36 Reassessment: Patient appears in no apparent distress at this time. blood sent to lab sg as ordered, pt family remains at bedside at this time. 11:57 Reassessment: Patient appears in no apparent distress at this time. Patient and/or jl7 family updated on plan of care and expected duration. Pain level reassessed. Patient is alert, oriented x 3, equal unlabored respirations, skin warm/dry/pink. Patient denies pain at this time. 13:00 Reassessment: Patient appears in no apparent distress at this time. No changes from jl7 previously documented assessment. Patient and/or family updated on plan of care and expected duration. Pain level reassessed. Patient is alert, oriented x 3, equal unlabored respirations, skin warm/dry/pink. 14:00 Reassessment: Patient appears in no apparent distress at this time. Patient and/or jl7 family updated on plan of care and expected duration. Pain level reassessed. Patient is alert, oriented x 3, equal unlabored respirations, skin warm/dry/pink. Vital Signs: 10:55 BP 187 / 97; Pulse 95; Resp 19 S; Temp 98(O); Pulse Ox 95% on R/A; Weight 68.04 kg (R); jl7 Pain 0/10; 11:37 BP 173 / 98; Pulse 92 MON; Resp 17; Pulse Ox 97% on R/A; sg 12:00 BP 178 / 104; Pulse 94; Resp 16 S; Pulse Ox 98% on R/A; Pain 0/10; jl7 12:30 BP 177 / 95; Pulse 96; Resp 19 S; Pulse Ox 97% on R/A; jl7 13:00 BP 161 / 88; Pulse 96; Resp 21 S; Pulse Ox 97% on R/A; jl7 13:30 BP 170 / 96; Pulse 96; Resp 20 S; Pulse Ox 97% on R/A; jl7 14:00 BP 165 / 94; Pulse 97; Resp 19 S; Pulse Ox 97% on R/A; jl7 ED Course: 10:49 Patient arrived in ED. jl7 10:51 EKG done, by product support technician. reviewed by Jax Lopes MD. at1 10:53 Triage completed. jl7 10:55 Arm band placed on right wrist. jl7 11:00 Patient maintains SpO2 saturation greater than 95% on room air. jl7 11:00 Patient has correct armband on for positive identification. Placed in gown. Bed in low jl7 position. Call light in reach. Side rails up X2. monitoring specialist on. Pulse ox on. NIBP on. Warm blanket given. 11:10 Barron Stover PA is PHCP. jr8 11:10 Jax Lopes MD is Attending Physician. jr8 11:13 Nuzhat العلي RN is Primary Nurse. jl7 11:37 Initial lab(s) drawn, by me, sent to lab. Maintain EMS IV. Dressing intact. Site clean sg \T\ dry. Gauge \T\ site: 20 G LAC. 11:42 XRAY Chest (1 view) In Process Unspecified. EDMS 12:21 Matthew Michelle DO is Hospitalizing Provider. jr8 12:35 Admitting physician to see patient. jl7 14:21 No provider procedures requiring assistance completed. Patient admitted, IV remains in jl7 place. intact, No redness/swelling at site. Administered Medications: 11:56 Drug: Aspirin Chewable Tablet 324 mg Route: PO; jl7 12:30 Follow up: Response: No adverse reaction jl7 11:56 Drug: Lasix 60 mg Route: IVP; Site: left antecubital; jl7 12:30 Follow up: Response: No adverse reaction jl7 12:35 Drug: hydrALAZINE 10 mg Route: IV; Rate: calculated rate; Site: left antecubital; jl7 12:35 Follow up: IV Status: Completed infusion jl7 13:00 Follow up: Response: No adverse reaction; Blood pressure is lowered jl7 14:11 Not Given (not needed): Nitroglycerin 0.4 mg Sublingual once; every five minute if jl7 needed x3 Intake: 14:12 PO: 50ml; Total: 50ml. jl7 Output: 14:12 Urine: 300ml (Voided); Total: 300ml. jl7 Outcome: 12:21 Decision to Hospitalize by Provider. jrZahida 14:21 Admitted to Tele accompanied by tech, via wheelchair, room 225, with chart, Report jl7 called to ANDRADE Larson 14:21 Condition: stable 14:21 Discharge instructions given to patient, family, Instructed on the need for admit, Demonstrated understanding of instructions. 14:49 Patient left the ED. ss Signatures: Dispatcher [employer] Eric Sykes, RN RN Marilyn Cunningham RN RN Barron Aviles PA PA jr8 Crystal Spencer, curtain mender EKG Tat1 Nuzhat العلي RN RN jl7
[2019-06-25] MEDS ORDERED: HYDRALAZINE HCL 20 MG/ML VIAL ONE (12:29)
[2019-06-25 13:36] LABS: Blood Morphology Comment NOTED (NOT SEEN); Hypochromasia 1+; Platelet Estimate ADEQ; Urine White Blood Cell Casts OK
--- NOTE | 2019-06-25 14:22 | P.HP ---
Certification for Inpatient Patient admitted to: Observation With expected LOS: <2 Midnights Patient will require the following post-hospital care: Other (Patient requires PCP) Practitioner: I am a practitioner with admitting privileges, knowledge of patient current condition, hospital course, and medical plan of care. Services: Services provided to patient in accordance with Admission requirements found in Title 42 Section 412.3 of the Code of Federal Regulations Patient History Date of Service: 06/25/19 Primary Care Provider: none Reason for admission: chest pain History of Present Illness: 64-year-old male with history of diabetes mellitus type 2 insulin dependent, CAD, COPD, hyperlipidemia and systolic CHF. Patient presented with chest pain. Mainly to the substernal region. It was associated with increased shortness of breath. Patient admits that he has not been taking any medication recently due to lack of PCP and follow up. Patient was seen in April of this past year for acute respiratory distress related to CHF and pleural effusion. Patient required thoracentesis at that time. Echocardiogram done in March showed ejection fraction of 30% with global hypokinesis. In the ER patient was evaluated. Patient was hypertensive. Patient required IV blood pressure medication. Chest x-ray showed volume overload. Patient was given Lasix is well. EKG shows LVH. White count within normal range. Hemoglobin 10. Sodium 140, potassium 3.6 %period% creatinine 1.26 with a GFR 58. Glucose 271. Troponin unremarkable. BNP elevated. Patient was admitted for further evaluation and treatment. When I saw the patient in the ER, he appeared much improved with medication. Son was at bedside. As mentioned above patient admits to noncompliance with medications due to lack of follow up with a PCP. Patient does not have insurance which makes it difficult to establish care. Allergies "nexia d" Allergy (Mild, Uncoded 04/04/19 00:26) Unknown Home medications list reviewed: Yes Home Medications: Insulin Glargine,Hum.rec.anlog [Lantus] 20 unit SQ BID #500 ml 04/12/19 Metoprolol Tartrate [Lopressor*] 25 mg PO BID 6AM 6PM #60 tab 04/12/19 Furosemide [Lasix*] 40 mg PO DAILY #30 tab 05/04/19 Spironolactone [Aldactone*] 25 mg PO BID #60 tab 05/04/19 - Past Medical/Surgical History Diabetic: Yes -: Diabetes mellitus type 2, insulin-dependent -: CAD -: Hypertension -: Hyperlipidemia -: COPD -: Tobacco abuse -: Knee surgery -: I&D lower right buttock -: hiatal hernia repair -: I and D to the left foot -: Left Bipolar Hemiarthroplasty 04/06/19 Psychosocial/ Personal History: Patient is single. He lives with his son. - Family History Father -: Heart disease, Hypertension, Lung disease, GI disease, Diabetes, Cancer, Other (see notes) Notes: parkinson's disease Mother -: Heart disease, Hypertension, Diabetes, Cancer Sister -: Cancer - Social History Smoking Status: Light Tobacco smoker (1-9 cigarettes/day) Counseled patient to stop smoking for: less than 10 minutes Smoking therapy provided: Yes Patient receptive to therapy: Yes Alcohol use: No CD- Drugs: No Caffeine use: Yes Place of Residence: Home Review of Systems General: As per HPI Eyes: Unremarkable ENT: Unremarkable Respiratory: Shortness of Breath, SOB with Excertion, Wheezing, As per HPI Cardiovascular: Chest Pain, Edema, Unremarkable Gastrointestinal: Unremarkable Genitourinary: Unremarkable Musculoskeletal: Pedal edema, As per HPI Integumentary: Unremarkable Neurological: Unremarkable Lymphatics: Unremarkable Physical Examination - Physical Exam General: Alert, In no apparent distress, Oriented x3, Cooperative HEENT: Atraumatic, Normocephalic Neck: Supple Respiratory: Crackles/rales (Bilateral), Expiratory wheezes (Bilateral) Cardiovascular: Normal pulses, Regular rate/rhythm Gastrointestinal: Normal bowel sounds, Soft and benign, Non-distended, No ascites, No tenderness, No masses, No rebound, No guarding Musculoskeletal: No tenderness, No warmth Integumentary: Tenderness/swelling (1+ pitting edema to the lower extremities bilateral) Neurological: Normal speech, Normal strength at 5/5 x4 extr, Normal tone, Normal affect - Studies Laboratory Data (last 24 hrs) 06/25/19 11:30: PT 11.5, INR 0.97 06/25/19 11:30: WBC 7.1, Hgb 10.2 L, Hct 30.8 L, Plt Count 286 06/25/19 11:30: Sodium 140, Potassium 3.6, BUN 21 H, Creatinine 1.26, Glucose 271 H, Magnesium 2.3, Total Bilirubin 0.2, AST 12 L, ALT 13, Alkaline Phosphatase 87 Assessment and Plan - Plan Impression: Chest pain and shortness of breath secondary to acute on chronic systolic CHF complicated with history of CAD with prior stents COPD Diabetes mellitus type 2 insulin-dependent with hyperglycemia Hypertension uncontrolled Noncompliance with follow up and medications Tobacco abuse Anemia likely of chronic disease Suspect chronic renal disease stage III Plan: Chest pain and shortness of breath secondary to acute on chronic systolic CHF complicated with history of CAD with prior stents: Patient will be admitted for further evaluation and monitoring. Will monitor on telemetry and cardiac enzymes. Will order echocardiogram to further evaluate. Prior echo shows ejection fraction 30%. Will consult cardiology for further evaluation and recommendation. Patient may require further cardiac evaluation like heart catheterization. Will continue with IV Lasix 40 mg twice daily. Will continue with a 1500 cc per day fluid restriction. Will provide DVT prophylaxis- Lovenox. Will recheck chest x-ray tomorrow. Will wean off oxygen. Anticipate discharge within the next 24-48 hr pending clinical improvement and Cardiology recommendations. Will have social services counselor help arrange for follow up with a PCP. COPD: Will provide COPD medication. Patient will require COPD medication at discharge. Diabetes mellitus type 2 insulin-dependent with hyperglycemia: Will provide Accu-Cheks and sliding scale. Patient will likely require basal insulin at discharge. We need to restart medication but consider his financial situation. Hypertension uncontrolled: Restart metoprolol. Will monitor and adjust appropriately. Noncompliance with follow up and medications: Compliance addressed in detail. Will have social services counselor help in establishing care with a PCP in the area and possibly provide patient assistance on medication. Tobacco abuse: Encouraged tobacco cessation Anemia likely of chronic disease: Will monitor closely. Suspect chronic renal disease stage III: Will monitor closely. Recommend no further use of nonsteroidal anti-inflammatories. Future medications may need to be renally dosed. Discharge Plan: Home Plan to discharge in: 48 Hours - Advance Directives Does patient have a Living Will: Yes Does patient have a Durable POA for Healthcare: No - Code Status/Comfort Care Code Status Assessed: Yes (Patient is DNR) Time Spent Managing Pts Care (In Minutes): 55
--- NOTE | 2019-06-25 14:56 | EKG ---
Test Date: 2019-06-25 Test Time: 10:41:10 Brim Edge Trimmer: ROQUE MEASUREMENT RESULTS: Intervals: Rate: 102 SC: 200 QRSD: 142 QT: 388 QTc: 505 [place]: P: 60 SC: 200 QRS: 0 T: 181 INTERPRETIVE STATEMENTS: Sinus tachycardia Left bundle branch block Abnormal ECG Compared to ECG 04/30/2019 07:38:16 Left bundle-branch block now present Sinus rhythm no longer present First degree AV block no longer present Myocardial infarct finding no longer present T-wave abnormality no longer present Possible ischemia no longer present Electronically Signed On 06-25-19 14:55:01 ARTIFICIAL STONE APPLICATOR by Martin Reyes
[2019-06-25] MEDS ORDERED: ACETAMINOPHEN 500 MG TAB PO PRN (15:06)
[2019-06-25] MEDS ORDERED: ALBUTEROL 2.5 MG/3 ML NEB SOL NEB PRN (15:06)
[2019-06-25] MEDS ORDERED: ONDANSETRON 4 MG/2 ML VIAL IV PRN (15:06)
[2019-06-25] MEDS ORDERED: IPRATROPIUM BROM 0.5MG/2.5ML NEB PRN (15:06)
[2019-06-25] MEDS ORDERED: POTASSIUM CL SA 10 MEQ TAB PO ONE (17:14)
[2019-06-25 17:29] LABS: CKMB Creatine Kinase MB 4.9 ng/mL (0.3-3.6); Troponin I 0.03 ng/mL (0.0-0.045)
[2019-06-25] MEDS: INSULIN -REGULAR HUMAN 50 UNIT/0.5 ML ML SQ SCH ×2 (17:43→20:13)
[2019-06-25] MEDS: ENOXAPARIN 40 MG/0.4 ML SQ SCH (17:43)
[2019-06-25] MEDS: FUROSEMIDE 40 MG/4 ML VIAL IV SCH (17:44)
[2019-06-25] MEDS: NICOTINE 21 MG/PAT TD SCH (17:44)
[2019-06-25] MEDS: METOPROLOL TAR 25 MG TAB PO SCH (17:44)
[2019-06-25] MEDS: BUDESONIDE 0.25 MG/2 ML NEB NEB SCH (20:30)
[2019-06-25] MEDS ORDERED: ATORVASTATIN 40 MG TAB PO SCH (21:00)
[2019-06-26 01:27] LABS: CKMB Creatine Kinase MB 3.9 ng/mL (0.3-3.6); Troponin I 0.11 ng/mL (0.0-0.045)
[2019-06-26 05:08] LABS: Absolute Lymphocytes (CBC) 1.7 K/uL (0.7-4.9); Basophils % 0.9 % (0-1.3); Hematocrit 27.8 % (39.6-49.0); Lymphocytes % 19.5 % (15.3-44.8); MPV 9.5 fL (7.6-11.3)
[2019-06-26 05:21] LABS: Magnesium 2.1 mg/dL (1.8-2.4); Potassium 3.8 mmol/L (3.5-5.1)
[2019-06-26] MEDS: METOPROLOL TAR 25 MG TAB PO SCH (05:31)
[2019-06-26 05:42] LABS: Blood Morphology Comment NOTED (NOT SEEN); Hypochromasia 1+; Platelet Estimate ADEQ; Urine White Blood Cell Casts OK
[2019-06-26 05:54] LABS: Urine Appearance CLEAR; Urine Bilirubin NEGATIVE (NEG); Urine Blood 1+ (NEG); Urine Color YELLOW; Urine Glucose 1+ (NEG); Urine Protein 3+ (NEG); Urine Specific Gravity 1.025 (1.005-1.030)
[2019-06-26 05:56] LABS: Urine Microscopic Reflex ORDER UMIC
[2019-06-26 06:06] LABS: Urine Amorphous Sediment 1+ /HPF (NONE SEEN); Urine Bacteria <20 /HPF (NONE SEEN); Urine Coarse Granular Casts 0-5 /LPF (NONE SEEN); Urine Culture Reflex Order NOT NEEDED; Urine Mucus 2+ /HPF (NONE SEEN)
[2019-06-26 07:12] VITALS: BMI 21.2
[2019-06-26] MEDS: INSULIN -REGULAR HUMAN 50 UNIT/0.5 ML ML SQ SCH ×2 (07:30→11:30)
[2019-06-26] MEDS: BUDESONIDE 0.25 MG/2 ML NEB NEB SCH (08:05)
[2019-06-26] MEDS ORDERED: CLOPIDOGREL 75 MG TABLET PO SCH (09:00)
[2019-06-26] MEDS ORDERED: ASPIRIN EC 81 MG TAB PO SCH (09:00)
[2019-06-26] MEDS ORDERED: POTASSIUM CL SA 10 MEQ TAB PO ONE (09:00)
[2019-06-26 09:15] VITALS: O2SAT 98
[2019-06-26] MEDS: ENOXAPARIN 40 MG/0.4 ML SQ SCH (09:43)
[2019-06-26] MEDS: FUROSEMIDE 40 MG/4 ML VIAL IV SCH (09:43)
[2019-06-26] MEDS: NICOTINE 21 MG/PAT TD SCH (09:44)
--- NOTE | 2019-06-26 11:27 | RAD REPORT ---
EXAM DESCRIPTION: RAD - Chest Pa And Lat (2 Views) - 06/26/2019 10:32 am CLINICAL HISTORY: follow up CHFCHF, shortness of breath COMPARISON: June 25 TECHNIQUE: PA and lateral views of the chest were obtained. FINDINGS: The lungs are slightly underinflated. Infiltrate and/ or atelectasis in each base again no tennille. Bilateral pleural effusions are present. Heart size is normal and central vasculature is withi n normal limits. No pneumothorax. No acute bony finding noted. No aortic abnormality. IMPRESSION: Bilateral pleural effusions with lung base infiltrate and/ or atelectasis stable or mini sherley improved from comparison.
--- NOTE | 2019-06-26 11:41 | P.DS ---
Admission Date: 06/25/19 Discharge Date: 06/26/19 Primary Care Provider: none Reason for Admission: chest pain Consultations: Dr. Reyse - Problems (1) Chest pain Status: Acute Qualifiers: Chest pain type: unspecified Qualified Code(s): R07.9 - Chest pain, unspecified (2) CHF exacerbation Status: Acute Qualifiers: Heart failure type: combined systolic and diastolic Qualified Code(s): I50.43 - Acute on chronic combined systolic (congestive) and diastolic ( congestive) heart failure Brief History of Present Illness: This is a 64-year-old male that presented to the ER yesterday for acute chest pain and shortness of breath. Was found to have exacerbation of congestive heart failure. Upon examination the patient was currently pain free and doing better after treatment in the emergency room. The patient was admitted overnight for cardiology consult and monitoring. Hospital Course: Patient was drastically improved while in the hospital. Patient was diuresed and blood pressure was monitored and controlled. Patient was off all his medications due to financial constraints and no primary care physician. Cardiology was consulted and started him back on his medications. Patient currently chest pain free and without shortness of breath. Has been able to ambulate with walker without increased shortness of breath or chest tightness. Labs are stabilized except for troponin which there was a slight uptake. But without chest pain or worsening in condition more than likely secondary to his chronic heart failure. Patient will follow up with Dr. Reyes. <Gilberto Stover - Last Filed: 06/26/19 11:36> Admission Date: 06/25/19 Discharge Date: 06/26/19 Procedures: Medical problem list: Shortness of breast secondary to acute on chronic systolic CHF Hypertension Diabetes mellitus type 2 insulin dependent with hyperglycemia CAD with prior stents Noncompliance with follow up and medication Hospital Course: Patient has done well with diuresis. Cardiology was consulted. No intervention required. Patient will continue with 1500 cc per day fluid restriction and low-salt diet. Patient will also continue with Aldactone 25 mg 1 pill twice daily, Lasix 40 mg daily, metoprolol 25 mg 1 pill twice daily and aspirin 81 mg daily. For his diabetes patient will continue with Lantus 20 units subcu twice daily. Social work will provide a list of PCPs in the area to establish care. Social work will also provide patient assistance information for the patient. Compliance with follow up and medications addressed in detail. Patient will follow up with cardiology as directed. <Miguel AngelMatthew - Last Filed: 06/26/19 21:13> Disposition: ROUTINE DISCHARGE Discharge Condition: GOOD Vital Signs/Physical Exam: Temp Pulse Resp BP Pulse Ox 98.0 F 74 16 179/93 H 97 06/26/19 08:00 06/26/19 09:43 06/26/19 08:00 06/26/19 09:43 06/26/19 08:00 General: Alert, Oriented x3 HEENT: Normocephalic, PERRLA, Mucous membr. moist/pink, EOMI Neck: Supple, 2+ carotid pulse no bruit, JVD not distended, No Thyromegaly Respiratory: Clear to auscultation bilaterally, Normal air movement Cardiovascular: No edema, Normal pulses, Regular rate/rhythm, Normal S1 S2, No gallops, No rubs, No murmurs Capillary refill: <2 Seconds Gastrointestinal: Soft and benign, Non-distended, No ascites, No tenderness Musculoskeletal: No clubbing, No swelling, No contractures, No erythema, No tenderness, No warmth Integumentary: No rashes, No breakdown, No significant lesion, No erythema, No warmth, No cyanosis Neurological: Normal gait, Normal speech, Normal strength at 5/5 x4 extr, Normal tone, Sensation intact, Cranial nerves 3-12 intact, Normal reflexes 2+, Normal affect Laboratory Data at Discharge: WBC 8.8 K/uL (4.3-10.9) D 06/26/19 04:54 Hgb 9.1 g/dL (13.6-17.9) L 06/26/19 04:54 Hct 27.8 % (39.6-49.0) L 06/26/19 04:54 Plt Count 278 K/uL (152-406) 06/26/19 04:54 PT 11.5 SECONDS (9.5-12.5) 06/25/19 11:30 INR 0.97 06/25/19 11:30 Sodium 142 mmol/L (136-145) 06/26/19 04:54 Potassium 3.8 mmol/L (3.5-5.1) 06/26/19 04:54 BUN 21 mg/dL (7-18) H 06/26/19 04:54 Creatinine 1.13 mg/dL (0.55-1.3) 06/26/19 04:54 Glucose 93 mg/dL (74-106) 06/26/19 04:54 Magnesium 2.1 mg/dL (1.8-2.4) 06/26/19 04:54 Total Bilirubin 0.2 mg/dL (0.2-1.0) 06/25/19 11:30 AST 12 U/L (15-37) L 06/25/19 11:30 ALT 13 U/L (12-78) 06/25/19 11:30 Alkaline Phosphatase 87 U/L (45-117) 06/25/19 11:30 Troponin I 0.36 ng/mL (0.0-0.045) H 06/26/19 09:43 Triglycerides 98 mg/dL (<150) 06/26/19 04:54 Cholesterol 196 mg/dL (<200) 06/26/19 04:54 HDL Cholesterol 41 mg/dL (40-60) 06/26/19 04:54 Cholesterol/HDL Ratio 4.78 06/26/19 04:54 <Gilberto Stover - Last Filed: 06/26/19 11:36> Vital Signs/Physical Exam: Temp Pulse Resp BP Pulse Ox 97.6 F 79 16 159/81 H 96 06/26/19 12:00 06/26/19 12:00 06/26/19 12:00 06/26/19 12:00 06/26/19 12:00 Laboratory Data at Discharge: WBC 8.8 K/uL (4.3-10.9) D 06/26/19 04:54 Hgb 9.1 g/dL (13.6-17.9) L 06/26/19 04:54 Hct 27.8 % (39.6-49.0) L 06/26/19 04:54 Plt Count 278 K/uL (152-406) 06/26/19 04:54 PT 11.5 SECONDS (9.5-12.5) 06/25/19 11:30 INR 0.97 06/25/19 11:30 Sodium 142 mmol/L (136-145) 06/26/19 04:54 Potassium 3.8 mmol/L (3.5-5.1) 06/26/19 04:54 BUN 21 mg/dL (7-18) H 06/26/19 04:54 Creatinine 1.13 mg/dL (0.55-1.3) 06/26/19 04:54 Glucose 93 mg/dL (74-106) 06/26/19 04:54 Magnesium 2.1 mg/dL (1.8-2.4) 06/26/19 04:54 Total Bilirubin 0.2 mg/dL (0.2-1.0) 06/25/19 11:30 AST 12 U/L (15-37) L 06/25/19 11:30 ALT 13 U/L (12-78) 06/25/19 11:30 Alkaline Phosphatase 87 U/L (45-117) 06/25/19 11:30 Troponin I 0.36 ng/mL (0.0-0.045) H 06/26/19 09:43 Triglycerides 98 mg/dL (<150) 06/26/19 04:54 Cholesterol 196 mg/dL (<200) 06/26/19 04:54 HDL Cholesterol 41 mg/dL (40-60) 06/26/19 04:54 Cholesterol/HDL Ratio 4.78 06/26/19 04:54 <Matthew Michelle - Last Filed: 06/26/19 21:13> Diet: ADA Activity: Ad sebastian Time spent managing pt's care (in minutes): 30 <Gilberto Stover - Last Filed: 06/26/19 11:36> Patient Discharge Instructions: Patient will need to establish care with a PCP to continue his care and follow up. Compliance address in detail with follow up and medications. For his CHF patient will continue with a 1500 cc per day fluid restriction and low-salt diet. He is to monitor his weight daily. If his weight increases by more than 5 lb he is to contact his PCP for further recommendation. At discharge patient will continue with aspirin 81 mg daily, Aldactone 25 mg 1 pill twice daily, Lasix to 40 mg daily. Recommend follow up with cardiology within 1-2 weeks to follow up this hospitalization. Patient with diabetes. At discharge he will continue with Lantus 20 units subcu twice daily. Recommend to maintain blood sugars less 140 fasting and less than 200 after meals. Further adjustment can be done by his PCP. Time spent managing pt's care (in minutes): 45 <Matthew Michelle - Last Filed: 06/26/19 21:13> Home Medications: Insulin Glargine,Hum.rec.anlog [Lantus] 20 unit SQ BID #500 ml 04/12/19 Metoprolol Tartrate [Lopressor*] 25 mg PO BID 6AM 6PM #60 tab 04/12/19 Furosemide [Lasix*] 40 mg PO DAILY #30 tab 05/04/19 Spironolactone [Aldactone*] 25 mg PO BID #60 tab 05/04/19 Aspirin [Aspirin EC 81 MG] 81 mg PO DAILY #30 tablet. 06/26/19 New Medications: Aspirin [Aspirin EC 81 MG] 81 mg PO DAILY #30 tablet. Followup: Martin Reyes MD [ACTIVE - CAN ADMIT] -
[2019-06-26 12:31] VITALS: BP 159/81; TEMP 97.6
--- NOTE | 2019-06-26 15:48 | CON ---
Date of Consultation: 06/26/[address] Michelle on 06/25/2019. Reason For Consultation: Congestive heart failure. History Of Present Illness: Mr. Anderson is a 64-year-old white male, noncompliant, has a history of a lcohol abuse, tobacco abuse, congestive heart failure with an ejection fraction of 30% as of 2018. Has hypertension, dyslipidemia, diabetes, as well as COPD. He came in with shortness of breath. Has run out of his medication. Complained of pedal edema, PND, orthopnea. No chest pain pe r se. He recently had a thoracentesis for pleural effusion. He had a chest x-ray showed minimal ple ural effusion, volume overload. His EKG showed left bundle-branch block with sinus tachycardia. Tro ponin slightly elevated. BNP was 16,304, hemoglobin was 10.2, glucose was 251. Allergies: HE IS ALLERGIC TO NEXIUM. Review of Systems: Negative. Social History: Positive for tobacco, alcohol, and noncompliance. Family History: Noncontributory. Medications: At home are supposed to be insulin, Aldactone Lasix, and metoprolol. Physical Examination: VITAL SIGNS: When I saw him today, his vital signs were stable with blood pressure 160/80. He is in sinus rhythm. O2 saturation adequate. GENERAL: No acute distress. Feeling much better. No chest pain or problems breathing. HEENT: Negative. NECK: Supple without any bruit, lymphadenopathy, JVD, or thyromegaly. CHEST: Revealed decreased breath sounds both sides. No rales. No wheezing. ABDOMEN: Benign. EXTREMITIES: Revealed no clubbing, cyanosis, or edema. Diagnostic Data: As stated earlier. Impression And Plan: 1.Congestive heart failure, acute on chronic, systolic. Congestive heart failure exacerbated. Seco ndary to noncompliance. The patient was given a prescription by me for Aldactone, Lasix, and metopro lol. I am not concerned that the BNP and his troponin are a bit elevated because of his congestive h eart failure. I agree with his present regimen. He is feeling better after diuresis. I am comforta ble with him going home and follow up with us as an outpatient. 2.Diabetes, poorly controlled. He is on insulin. 3.Hypertension, well controlled. 4.Dyslipidemia. 5.Chronic obstructive pulmonary disease. 6.Pleural effusion, status post recent thoracentesis that has resolved. Case was discussed with Dr. Michelle. ANA/ERLIN Voice ID: [id number] Report ID: [id number]
== END 2019-06-26 13:15 | disposition home or self-care (01) ==
LOC: ER 10:42 → ERHOLD 13:36 → 2ND 14:33
PROVIDERS: ADMIT Family Medicine; ATTEND Family Medicine
DX: I50.23 Acute on chronic systolic (congestive) heart failure (principal); I11.0 Hypertensive heart disease with heart failure; E11.9 Type 2 diabetes mellitus without complications; I25.10 Atherosclerotic heart disease of native coronary artery without angina pectoris; J44.9 Chronic obstructive pulmonary disease, unspecified; E78.5 Hyperlipidemia, unspecified; F17.210 Nicotine dependence, cigarettes, uncomplicated; Z91.19 Patient's noncompliance with other medical treatment and regimen
CPT/HCPCS: 36415; 71045; 71046; 80048; 80061; 80076; 81003; 81015; 82550; 82553; 82947; 83735; 83880; 84484; 85025; 85610; 93005; 96374; 96375; 99285; G0378; J0360; J1650; J1940

== ENCOUNTER 2019-07-03 12:54 | Emergency (ER) | payer SELFPAY ==
--- OUTSIDE RECORDS SUMMARY | 2019-07-03 12:56 | XMS REPORT ---
:1955 [facility] Address [address] [place] [address] Dr. Song [address] [place] [address] Care Team Providers Name Role Phone Unavailable Unavailable Unavailable Problems This patient has no known problems. Allergies, Adverse Reactions, Alerts This patient has no known allergies or adverse reactions. Medications This patient has no known medications.
[2019-07-03] MEDS ORDERED: FUROSEMIDE 40 MG/4 ML VIAL ONE ×2 (14:10→16:04)
--- NOTE | 2019-07-03 14:39 | RAD REPORT ---
EXAM DESCRIPTION: RAD - Chest Single View - 07/03/2019 2:26 pm CLINICAL HISTORY: Bilateral lower extremity pain and swelling COMPARISON: June 26 TECHNIQUE: AP portable chest image was obtained 1414 hours . FINDINGS: Bilateral pleural effusions are present similar to the comparison study. Cardiomegaly is a gain noted. Vasculature is prominent and there is an overall interstitial prominence. No pneumothorax . No acute bony abnormality seen. No acute aortic findings suspected. IMPRESSION: Cardiomegaly and prominent vasculature. Bilateral pleural effusions are present. CHF/volume overload findings are not substantially different from comparison.
[2019-07-03 15:07] LABS: Absolute Lymphocytes (CBC) 1.3 K/uL (0.7-4.9); Basophils % 1.3 % (0-1.3); Hematocrit 31.1 % (39.6-49.0); Lymphocytes % 20.8 % (15.3-44.8); MPV 9.4 fL (7.6-11.3); RBC Red Blood Cell Count 4.75 M/uL (4.33-5.43)
[2019-07-03 15:08] LABS: Protime INR 1.02
[2019-07-03 15:54] LABS: ALT/SGPT 16 U/L (12-78); AST/SGOT 12 U/L (15-37); Albumin 2.4 g/dL (3.4-5.0); Alkaline Phosphatase 82 U/L (45-117); BUN Blood Urea Nitrogen 21 mg/dL (7-18); Bicarbonate 29 mmol/L (21-32); Bilirubin Direct < 0.1 mg/dL (0-0.2); Bilirubin Total 0.2 mg/dL (0.2-1.0); Glucose Level 253 mg/dL (74-106); Magnesium 2.1 mg/dL (1.8-2.4); NT PRO-BNP 27202 pg/mL (<125); Potassium 3.7 mmol/L (3.5-5.1); Protein, Total 6.7 g/dL (6.4-8.2); Sodium Level 139 mmol/L (136-145); Troponin (Emerg Dept Use Only) < 0.02 ng/mL (0.0-0.045)
[2019-07-03 15:57] LABS: Anisocytosis SLIGHT; Blood Morphology Comment NOTED (NOT SEEN); Hypochromasia 1+; Platelet Estimate ADEQ; Urine White Blood Cell Casts OK
--- NOTE | 2019-07-03 16:34 | EKG ---
Test Date: 2019-07-03 Test Time: 14:10:59 Homicide Detective: ROQUE MEASUREMENT RESULTS: Intervals: Rate: 71 UT: 182 QRSD: 144 QT: 468 QTc: 508 [place]: P: 57 UT: 182 QRS: 28 T: 225 INTERPRETIVE STATEMENTS: Normal sinus rhythm Left bundle branch block Abnormal ECG Compared to ECG 06/25/2019 10:41:10 Sinus tachycardia no longer present Electronically Signed On 07-03-19 16:33:41 SEWING MACHINE TESTER by Martin Reeys
--- NOTE | 2019-07-03 16:51 | EDPHYS ---
Physician Documentation [facility] Name: Mumtaz Anderson Age: 64 yrs Sex: Male : 1955 Arrival Date: 07/03/2019 Time: 12:57 Bed 14 Private MD: ED Physician Reinaldo Carrera HPI: 07/03 14:02 This 64 yrs old Male presents to ER via Wheelchair with complaints of Leg jmm Swelling. 14:02 The patient presents with pain, swelling. Onset: The symptoms/episode began/occurred 1 jmm week(s) ago. Modifying factors: The symptoms are alleviated by nothing. the symptoms are aggravated by nothing. This is a 64 year old male with a history of dm, htn that presents to the ED with complaints of bilateral leg swelling since discharge last week. Patient began to develop increased swelling today with shortness of breath. Patient states taking 40 mg of lasix a day without relief. . Historical: - Allergies: 13:02 Nexium D; sv - PMHx: 13:02 Diabetes - IDDM; Hypertension; sv - PSHx: 13:02 Knee surgery; left hip; foot; hand; sv - Immunization history:: Adult Immunizations up to date. - Social history:: Smoking status: Patient uses tobacco products, smokes one pack cigarettes per day. - Ebola Screening: : Patient negative for fever greater than or equal to 101.5 degrees Fahrenheit, and additional compatible Ebola Virus Disease symptoms Patient denies exposure to infectious person Patient denies travel to an Ebola-affected area in the 21 days before illness onset No symptoms or risks identified at this time. ROS: 14:02 Constitutional: Negative for fever, chills, and weight loss, Cardiovascular: Negative jmm for chest pain, palpitations, and edema. 14:02 Respiratory: Positive for shortness of breath. 14:02 MS/extremity: Positive for swelling. 14:02 All other systems are negative. Exam: 14:02 Constitutional: This is a well developed, well nourished patient who is awake, alert, jmm and in no acute distress. Head/Face: atraumatic. Eyes: EOMI, no conjunctival erythema appreciated ENT: Moist Mucus Membranes Neck: Trachea midline, Supple Chest/axilla: Normal chest wall appearance and motion. Cardiovascular: Regular rate and rhythm. No edema appreciated Respiratory: Normal respirations, no respiratory distress appreciated Abdomen/GI: Non distended, soft Back: Normal ROM Skin: General appearance color normal 14:02 Musculoskeletal/extremity: bilateral pitting edema noted,. full dorsalis pulse, compartments are soft, NVI. 14:02 Skin: Appearance: Color: normal in color. 14:02 Neuro: Orientation: is normal, Mentation: is normal, Memory: is normal. 14:02 Psych: Behavior/mood is pleasant, cooperative. Vital Signs: 13:02 BP 155 / 77; Pulse 76; Resp 18; Temp 98.7; Pulse Ox 97% ; Weight 71.67 kg; Height 6 ft. sv 0 in. (182.88 cm); 14:02 BP 159 / 81; Pulse 72; Resp 19 S; Pulse Ox 98% on R/A; ca1 15:07 BP 155 / 83; Pulse 71; Resp 20; Pulse Ox 95% on R/A; mh5 16:06 BP 155 / 97; Pulse 73; Resp 16 S; Pulse Ox 98% on R/A; ca1 13:02 Body Mass Index 21.43 (71.67 kg, 182.88 cm) sv MDM: 13:48 [facility] medically screened[facility] 16:45 Data reviewed: vital signs, nurses notes. Counseling: I had a detailed discussion with [facility] the patient and/or guardian regarding: the historical points, exam findings, and any diagnostic results supporting the discharge/admit diagnosis, lab results, radiology results, the need for outpatient follow up, to return to the emergency department if symptoms worsen or persist or if there are any questions or concerns that arise at home. ED course: Patient is alert and non toxic in appearance in the ED. No signs of resp distress appreciated. Dr. Michelle evaluated the patient. Education was given on fluid restriction as well as follow up with [facility]. Family was otherwise given strict return precautions. Patient understood and agrees with the plan of care. . 07/03 13:57 Order name: Basic Metabolic Panel; Complete Time: 15:55 [facility] 07/03 13:57 Order name: CBC with Diff; Complete Time: 15:58 [facility] 07/03 13:57 Order name: LFT's; Complete Time: 15:55 [facility] 07/03 13:57 Order name: Magnesium; Complete Time: 15:55 [facility] 07/03 13:57 Order name: NT PRO-BNP; Complete Time: 15:55 [facility] 07/03 13:57 Order name: PT-INR; Complete Time: 15:13 [facility] 07/03 13:57 Order name: Troponin (emerg Dept Use Only); Complete Time: 15:55 [facility] 07/03 13:57 Order name: XRAY Chest (1 view); Complete Time: 14:41 [facility] 07/03 13:57 Order name: EKG; Complete Time: 13:58 [facility] 07/03 13:57 Order name: Cardiac monitoring; Complete Time: 14:07 [facility] 07/03 13:57 Order name: EKG - Nurse/Tech; Complete Time: 14:28 [facility] 07/03 15:11 Order name: CBC Smear Scan; Complete Time: 15:58 [facility] 07/03 13:57 Order name: IV Saline Lock; Complete Time: 14:28 [facility] 07/03 13:57 Order name: Labs collected and sent; Complete Time: 14:08 [facility] 07/03 13:57 Order name: O2 Per Protocol; Complete Time: 14:08 [facility] 07/03 13:57 Order name: O2 Sat Monitoring; Complete Time: 14:08 [facility] 07/03 14:21 Order name: Labs - recollect needed: all blood needs recollect; Complete Time: 15:14 eb Administered Medications: 14:27 Drug: Lasix 40 mg Route: IVP; Site: left antecubital; ca1 16:05 Follow up: Urine output 230 ml; Response: No adverse reaction ca1 16:05 Drug: Lasix 40 mg Route: IVP; Site: right antecubital; ca1 Disposition: 17:34 Co-signature as Attending Physician, Reinaldo Carrera MD. rn Disposition: 07/03/19 16:50 Discharged to Home. Impression: Edema, not elsewhere classified. - Condition is Stable. - Discharge Instructions: Peripheral Edema. - Medication Reconciliation Form, Thank You Letter, Antibiotic Education, Prescription Opioid Use form. - Follow up: Private Physician; When: 2 - 3 days; Reason: Recheck today's complaints, Continuance of care, Re-evaluation by your physician. Signatures: Dispatcher Med[employer] Ting White RN RN sv Mickail, Joel, PA PA jmm Nieto, Roman, MD MD rn Botello, Elizabeth eb Acob, Cheryl, RN RN ca1 Jt Rodriguez RN RN tr5 Corrections: (The following items were deleted from the chart) 17:08 16:50 07/03/2019 16:50 Discharged to Home. Impression: Edema, not elsewhere classified. tr5 Condition is Stable. Forms are Medication Reconciliation Form, Thank You Letter, Antibiotic Education, Prescription Opioid Use. Follow up: Private Physician; When: 2 - 3 days; Reason: Recheck today's complaints, Continuance of care, Re-evaluation by your physician. marbin
--- NOTE | 2019-07-03 16:51 | ER ---
Nurse's Notes [facility] Name: Mumtaz Anderson Age: 64 yrs Sex: Male : 1955 Arrival Date: 07/03/2019 Time: 12:57 Bed 14 Private MD: Diagnosis: Edema, not elsewhere classified Presentation: 07/03 13:00 Presenting complaint: Child states: BLE swelling since he was here last time. sv Transition of care: patient was not received from another setting of care. Onset of symptoms was June 2019. Risk Assessment: Do you want to hurt yourself or someone else? Patient reports no desire to harm self or others. Care prior to arrival: None. 13:00 Method Of Arrival: Wheelchair sv 13:00 Acuity: VIDAL 3 sv 14:20 Initial Sepsis Screen: Does the patient meet any 2 criteria? No. Patient's initial ca1 sepsis screen is negative. Does the patient have a suspected source of infection? No. Patient's initial sepsis screen is negative. Historical: - Allergies: 13:02 Nexium D; sv - PMHx: 13:02 Diabetes - IDDM; Hypertension; sv - PSHx: 13:02 Knee surgery; left hip; foot; hand; sv - Immunization history:: Adult Immunizations up to date. - Social history:: Smoking status: Patient uses tobacco products, smokes one pack cigarettes per day. - Ebola Screening: : Patient negative for fever greater than or equal to 101.5 degrees Fahrenheit, and additional compatible Ebola Virus Disease symptoms Patient denies exposure to infectious person Patient denies travel to an Ebola-affected area in the 21 days before illness onset No symptoms or risks identified at this time. Screenin:40 Abuse screen: Denies threats or abuse. Denies injuries from another. Nutritional ca1 screening: No deficits noted. Tuberculosis screening: No symptoms or risk factors identified. Fall Risk IV access (20 points). Ambulatory Aid- Crutches/Cane/Walker (15 pts). Gait- Weak (10 pts.). Total Walter Fall Scale indicates Low Risk Score (25-44 pts). Fall prevention measures have been instituted. Side Rails Up X 2 Family Present and informed to notify staff if they need to leave bedside As available Patient and Family Educated on Fall Prevention Program and strategies. Assessment: 13:40 General: Appears in no apparent distress. comfortable, Behavior is calm, cooperative, ca1 appropriate for age. Pain: Denies pain. Neuro: Level of Consciousness is awake, alert, obeys commands, Oriented to person, place, time, situation, Appropriate for age. Cardiovascular: Heart tones S1 S2 present Capillary refill < 3 seconds Patient's skin is warm and dry. Pulses are all present. Cardiovascular: Edema is 2+ to left midcalf, left ankle, left foot, left toes, right midcalf, right ankle, right foot and right toes. Respiratory: Airway is patent Respiratory effort is even, unlabored, Respiratory pattern is regular, symmetrical, Breath sounds are clear bilaterally. Respiratory: Reports shortness of breath on exertion. GI: Abdomen is flat, non-distended, Bowel sounds present X 4 quads. Abd is soft and non tender X 4 quads. : No deficits noted. No signs and/or symptoms were reported regarding the genitourinary system. EENT: No deficits noted. No signs and/or symptoms were reported regarding the EENT system. Derm: Skin is intact, is fragile, is thin, Skin is dry, Skin is pale, Skin temperature is warm. Musculoskeletal: Circulation, motion, and sensation intact. Capillary refill < 3 seconds. 14:32 Reassessment: Patient appears in no apparent distress at this time. Patient and/or ca1 family updated on plan of care and expected duration. Pain level reassessed. Patient is alert, oriented x 3, equal unlabored respirations, skin warm/dry/pink. 15:41 Reassessment: Patient appears in no apparent distress at this time. Patient is alert, ca1 oriented x 3, equal unlabored respirations, skin warm/dry/pink. 16:07 Reassessment: Dr. Michelle at bedside. ca1 16:49 Reassessment: Patient appears in no apparent distress at this time. Patient is alert, ca1 oriented x 3, equal unlabored respirations, skin warm/dry/pink. Instructed on limiting oral fluid intake to 1500 ml per day, continuing diuretics, and weighing daily per Dr. Michelle instructions. Vital Signs: 13:02 BP 155 / 77; Pulse 76; Resp 18; Temp 98.7; Pulse Ox 97% ; Weight 71.67 kg; Height 6 ft. sv 0 in. (182.88 cm); 14:02 BP 159 / 81; Pulse 72; Resp 19 S; Pulse Ox 98% on R/A; ca1 15:07 BP 155 / 83; Pulse 71; Resp 20; Pulse Ox 95% on R/A; mh5 16:06 BP 155 / 97; Pulse 73; Resp 16 S; Pulse Ox 98% on R/A; ca1 13:02 Body Mass Index 21.43 (71.67 kg, 182.88 cm) sv ED Course: 12:57 Patient arrived in ED. mr 13:01 Triage completed. sv 13:02 Arm band placed on. sv 13:33 Hugh Gutierrez PA is PHCP. jmm 13:33 Reinaldo Carrera MD is Attending Physician. jmm 13:40 Patient has correct armband on for positive identification. Placed in gown. Bed in low ca1 position. Call light in reach. Side rails up X2. sr. [employer] system administrator on. Pulse ox on. NIBP on. Warm blanket given. 13:44 Dunia Weiss, RN is Primary Nurse. ca1 14:10 No provider procedures requiring assistance completed. Missed attempt(s): 20 gauge in ca1 right antecubital area. Bleeding controlled, band aid applied, catheter tip intact. 14:16 Missed attempt(s): 22 gauge in right forearm. Bleeding controlled, band aid applied, ca1 catheter tip intact. 14:19 EKG done, by technical services coordinator. reviewed by Reinaldo Carrera MD. at1 14:27 XRAY Chest (1 view) In Process Unspecified. EDMS 14:27 Inserted saline lock: 22 gauge in left antecubital area, using aseptic technique. Blood mh5 collected. 15:07 Lab(s) recollected, by me, sent to lab. mh5 17:07 IV discontinued. tr5 Administered Medications: 14:27 Drug: Lasix 40 mg Route: IVP; Site: left antecubital; ca1 16:05 Follow up: Urine output 230 ml; Response: No adverse reaction ca1 16:05 Drug: Lasix 40 mg Route: IVP; Site: right antecubital; ca1 Output: 16:05 Urine: 230ml; Total: 230ml. ca1 16:06 Urine: 230ml (Voided); Total: 460ml. ca1 17:08 Urine: 220ml (Voided); Total: 680ml. tr5 Outcome: 16:50 Discharge ordered by . jmm 17:07 Discharged to home ambulatory. tr5 17:07 Condition: stable 17:07 Discharge instructions given to patient, Instructed on discharge instructions, follow up and referral plans. Demonstrated understanding of instructions, follow-up care. 17:08 Patient left the ED. tr5 Signatures: Dispatcher [employer] EDTing Gomez, ANDRADE RN Hugh Woods PA PA jmm Rivera, Mary mr Tj, Crystal, risk consultant EKG Tat1 Jennifer [facility] Dunia Weiss RN RN ca1 Jt Rodriguez RN RN tr5
[2019-07-03 20:55] VITALS: TEMP 98.7
[2019-07-03 20:59] VITALS: BP 155/97; O2SAT 98
== END 2019-07-03 17:08 | disposition home or self-care (01) ==
LOC: ER 12:54
DX: R60.9 Edema, unspecified (principal); Z88.8 Allergy status to other drugs, medicaments and biological substances; F17.210 Nicotine dependence, cigarettes, uncomplicated
CPT/HCPCS: 36415; 71045; 80048; 80076; 83735; 83880; 84484; 85025; 85610; 93005; 99284; J1940

== ENCOUNTER 2019-07-18 03:54 | Emergency (ER) | payer SELFPAY ==
--- OUTSIDE RECORDS SUMMARY | 2019-07-18 03:56 | XMS REPORT ---
:1955 [facility] Address [address] [place] [address] Dr. Song [address] [place] [address] Care Team Providers Name Role Phone Unavailable Unavailable Unavailable Problems This patient has no known problems. Allergies, Adverse Reactions, Alerts This patient has no known allergies or adverse reactions. Medications This patient has no known medications.
[2019-07-18] MEDS ORDERED: BUMETANIDE 1 MG/4 ML VIAL ONE (05:41)
[2019-07-18 05:48] LABS: Absolute Lymphocytes (CBC) 1.5 K/uL (0.7-4.9); Basophils % 1.1 % (0-1.3); Lymphocytes % 13.8 % (15.3-44.8); MPV 10.2 fL (7.6-11.3); RBC Red Blood Cell Count 4.53 M/uL (4.33-5.43)
[2019-07-18 06:04] LABS: ALT/SGPT 14 U/L (12-78); AST/SGOT 12 U/L (15-37); Albumin 2.3 g/dL (3.4-5.0); Alkaline Phosphatase 80 U/L (45-117); BUN Blood Urea Nitrogen 28 mg/dL (7-18); Bicarbonate 30 mmol/L (21-32); Bilirubin Total 0.3 mg/dL (0.2-1.0); Glucose Level 194 mg/dL (74-106); NT PRO-BNP 21922 pg/mL (<125); Potassium 4.1 mmol/L (3.5-5.1); Protein, Total 6.4 g/dL (6.4-8.2); Sodium Level 142 mmol/L (136-145); Troponin (Emerg Dept Use Only) < 0.02 ng/mL (0.0-0.045)
--- NOTE | 2019-07-18 07:05 | EDPHYS ---
Physician Documentation [facility] Name: Mumtaz Anderson Age: 64 yrs Sex: Male : 1955 Arrival Date: 07/18/2019 Time: 03:56 Bed 6 Private MD: ED Physician Sang Lees HPI: 07/18 06:51 This 64 yrs old Male presents to ER via Ambulatory with complaints of ps1 Shortness Of Breath. 06:51 patient has known history of COPD and CHF, CAD presenting with recurrent NACNY. Patient ps1 is speaking in full sentences. Has worsening lower extremity edema. Taking Lasix 40 mg QD and spironolactone. States he was taking medication BID and lowered it on last discharge to QD. . Historical: - Allergies: 04:21 Nexium D; fc - Home Meds: 04:21 Lasix 40 mg Oral tab 1 tab once daily [Active]; metoprolol tartrate 50 mg Oral tab 1 fc tab once daily [Active]; spironolactone 25 mg Oral tab 1 tab once daily [Active]; - PMHx: 04:21 Diabetes - IDDM; Hypertension; Myocardial infarction; CHF; CAD; Seizures; COPD; fc - PSHx: 04:21 Knee surgery; left hip; foot; hand; fc - Immunization history:: Last tetanus immunization: up to date Flu vaccine is not up to date. - Social history:: Smoking status: Patient uses tobacco products, smokes two packs cigarettes per day. Patient/guardian denies using alcohol, the patient reports quitting approximately 6 years ago. - Ebola Screening: : Patient negative for fever greater than or equal to 101.5 degrees Fahrenheit, and additional compatible Ebola Virus Disease symptoms Patient denies exposure to infectious person Patient denies travel to an Ebola-affected area in the 21 days before illness onset. ROS: 06:51 Constitutional: Negative for fever, chills, and weight loss, Eyes: Negative for injury, ps1 pain, redness, and discharge, Cardiovascular: Negative for chest pain, palpitations, and edema, Abdomen/GI: Negative for abdominal pain, nausea, vomiting, diarrhea, and constipation, MS/Extremity: Negative for injury and deformity, Skin: Negative for injury, rash, and discoloration, Neuro: Negative for headache, weakness, numbness, tingling, and seizure. 06:51 Respiratory: Positive for dyspnea on exertion, shortness of breath. Exam: 06:51 Constitutional: This is a well developed, well nourished patient who is awake, alert, ps1 and in no acute distress. Head/Face: Normocephalic, atraumatic. Eyes: Pupils equal round and reactive to light, extra-ocular motions intact. Lids and lashes normal. Conjunctiva and sclera are non-icteric and not injected. Chest/axilla: Normal chest wall appearance and motion. Nontender with no deformity. No lesions are appreciated. Cardiovascular: Regular rate and rhythm. No gallops, murmurs, or rubs. Normal PMI, no JVD. No pulse deficits. Respiratory: Lungs have equal breath sounds bilaterally, clear to auscultation and percussion. No rales, rhonchi or wheezes noted. No increased work of breathing, no retractions or nasal flaring. Abdomen/GI: Soft, non-tender, with normal bowel sounds. No distension or tympany. No guarding or rebound. No evidence of tenderness throughout. 06:51 Skin: Appearance: normal except for affected area, 3+ edema. Vital Signs: 04:05 BP 172 / 85; Pulse 74; Resp 18; Temp 97.6(O); Pulse Ox 95% on R/A; Weight 71.67 kg (R); fc Height 6 ft. 0 in. (182.88 cm) (R); Pain 0/10; 04:36 BP 172 / 85; Pulse 74; Resp 19 S; Pulse Ox 95% on R/A; jd3 06:48 BP 164 / 80; Pulse 74; Resp 19 S; Pulse Ox 96% on R/A; jl7 04:05 Body Mass Index 21.43 (71.67 kg, 182.88 cm) fc MDM: 04:37 Patient medically screened. ps1 07:03 Data reviewed: vital signs, nurses notes, lab test result(s), radiologic studies, and ps1 as a result, I will discharge patient. Counseling: I had a detailed discussion with the patient and/or guardian regarding: the historical points, exam findings, and any diagnostic results supporting the discharge/admit diagnosis, the need for outpatient follow up, take lasix twice a day and fluid restriction to 2L qd from all sources. Return precautions given. . 07/18 05:08 Order name: CBC with Diff ps1 07/18 05:08 Order name: CMP; Complete Time: 06:33 ps1 07/18 05:08 Order name: BNP; Complete Time: 06:33 ps1 07/18 05:08 Order name: CXR XRAY ps1 07/18 05:08 Order name: Troponin (emerg Dept Use Only); Complete Time: 06:33 ps1 Administered Medications: 05:51 Drug: Bumex 1 mg Route: IVP; Site: right antecubital; jd3 06:50 Follow up: Response: No adverse reaction jd3 Disposition: 07/18/19 07:01 Discharged to Home. Impression: Acute CHF exacerbation. - Condition is Stable. - Discharge Instructions: Heart Failure, [id number]. - Prescriptions for Lasix 40 mg Oral Tablet - take 1 tablet by ORAL route every 12 hours for 30 days; 60 tablet. - Medication Reconciliation Form, Thank You Letter, Antibiotic Education, Prescription Opioid Use form. - Follow up: Martin Reyes MD; When: 48 Hours; Reason: Further diagnostic work-up, Recheck today's complaints, Continuance of care. - Problem is an acute exacerbation. - Symptoms have improved. Signatures: Dispatcher [employer] EDMS Ludy Hidalgo RN RN Nuzhat العلي RN RN jl7 Axel Donaldson RN RN jd3 Singer, Phillip, MD MD ps1 Corrections: (The following items were deleted from the chart) 07:21 07:01 07/18/2019 07:01 Discharged to Home. Impression: Acute CHF exacerbation. jl7 Condition is Stable. Forms are Medication Reconciliation Form, Thank You Letter, Antibiotic Education, Prescription Opioid Use. Follow up: Martin Reyes; When: 48 Hours; Reason: Further diagnostic work-up, Recheck today's complaints, Continuance of care. Problem is an acute exacerbation. Symptoms have improved. ps1
[2019-07-18 07:30] VITALS: TEMP 97.6
[2019-07-18 07:33] VITALS: BP 164/80; O2SAT 96
--- NOTE | 2019-07-18 07:33 | ER ---
Nurse's Notes [facility] Name: Mumtaz Anderson Age: 64 yrs Sex: Male : 1955 Arrival Date: 07/18/2019 Time: 03:56 Bed 6 Private MD: Diagnosis: Acute CHF exacerbation Presentation: 07/18 04:00 Presenting complaint: Patient states: that his SOB and edema have gotten worse over the past 3 weeks. Was here 1 week ago and told to change his diet and decrease his fluid intake. Transition of care: patient was not received from another setting of care. Onset of symptoms was June 2019. Risk Assessment: Do you want to hurt yourself or someone else? Patient reports no desire to harm self or others. Initial Sepsis Screen:. Care prior to arrival: None. 04:00 Method Of Arrival: Ambulatory 04:00 Acuity: VIDAL 3 04:36 Initial Sepsis Screen: Does the patient meet any 2 criteria? No. Patient's initial jd3 sepsis screen is negative. Does the patient have a suspected source of infection? No. Patient's initial sepsis screen is negative. Triage Assessment: 04:36 Respiratory: Onset: The symptoms/episode began/occurred gradually, the patient has mild jd3 shortness of breath. Historical: - Allergies: 04:21 Nexium D; fc - Home Meds: 04:21 Lasix 40 mg Oral tab 1 tab once daily [Active]; metoprolol tartrate 50 mg Oral tab 1 fc tab once daily [Active]; spironolactone 25 mg Oral tab 1 tab once daily [Active]; - PMHx: 04:21 Diabetes - IDDM; Hypertension; Myocardial infarction; CHF; CAD; Seizures; COPD; fc - PSHx: 04:21 Knee surgery; left hip; foot; hand; fc - Immunization history:: Last tetanus immunization: up to date Flu vaccine is not up to date. - Social history:: Smoking status: Patient uses tobacco products, smokes two packs cigarettes per day. Patient/guardian denies using alcohol, the patient reports quitting approximately 6 years ago. - Ebola Screening: : Patient negative for fever greater than or equal to 101.5 degrees Fahrenheit, and additional compatible Ebola Virus Disease symptoms Patient denies exposure to infectious person Patient denies travel to an Ebola-affected area in the 21 days before illness onset. Screenin:05 Abuse screen: Denies threats or abuse. Nutritional screening: No deficits noted. fc Tuberculosis screening: No symptoms or risk factors identified. Fall Risk Fall in past 12 months (25 points). Secondary diagnosis (15 points) impaired mobility, No IV (0 pts). Ambulatory Aid- Crutches/Cane/Walker (15 pts). Gait- Weak (10 pts.). Mental Status- Overestimates/Forgets Limitations (15 pts.). Total Walter Fall Scale indicates High Risk Score (45 or more points). Fall prevention measures have been instituted. Side Rails Up X 2 Placed Close to Nursing Station 1:1 Attendant Assigned Frequent Obs/Assessments Occuring Family Present and informed to notify staff if the need to leave the bedside As available patient and family educated on Fall Prevention Program and Strategies. Assessment: 04:34 General: Appears in no apparent distress. uncomfortable, Behavior is calm, cooperative, jd3 appropriate for age. Pain: Complains of pain in chest Quality of pain is described as aching, pressure. Neuro: Level of Consciousness is awake, alert, obeys commands, Oriented to person, place, time, situation. Cardiovascular: Heart tones S1 S2 present Capillary refill < 3 seconds Patient's skin is warm and dry. Rhythm is regular. Respiratory: Reports shortness of breath Airway is patent Respiratory effort is even, unlabored, Respiratory pattern is regular, symmetrical, Breath sounds are clear bilaterally. GI: Abdomen is round non-distended, Abd is soft and non tender X 4 quads. Patient currently denies diarrhea, nausea, vomiting. : No signs and/or symptoms were reported regarding the genitourinary system. EENT: No signs and/or symptoms were reported regarding the EENT system. Derm: Skin is intact, Skin is dry, Skin is normal, Skin temperature is warm. Musculoskeletal: Circulation, motion, and sensation intact. Range of motion: intact in all extremities, Swelling present in right foot, left foot, right leg and left leg. 05:50 Reassessment: Patient appears in no apparent distress at this time. No changes from lp1 previously documented assessment. Patient and/or family updated on plan of care and expected duration. Pain level reassessed. Patient is alert, oriented x 3, equal unlabored respirations, skin warm/dry/pink. 06:49 Reassessment: Patient appears in no apparent distress at this time. Patient and/or lp1 family updated on plan of care and expected duration. Pain level reassessed. Patient is alert, oriented x 3, equal unlabored respirations, skin warm/dry/pink. Vital Signs: 04:05 BP 172 / 85; Pulse 74; Resp 18; Temp 97.6(O); Pulse Ox 95% on R/A; Weight 71.67 kg (R); fc Height 6 ft. 0 in. (182.88 cm) (R); Pain 0/10; 04:36 BP 172 / 85; Pulse 74; Resp 19 S; Pulse Ox 95% on R/A; jd3 06:48 BP 164 / 80; Pulse 74; Resp 19 S; Pulse Ox 96% on R/A; jl7 04:05 Body Mass Index 21.43 (71.67 kg, 182.88 cm) fc ED Course: 03:56 Patient arrived in ED. es 04:00 Arm band placed on Patient placed in an exam room, on a stretcher. fc 04:05 Patient has correct armband on for positive identification. Placed in gown. Bed in low fc position. Call light in reach. hall monitor on. Pulse ox on. NIBP on. 04:05 No provider procedures requiring assistance completed. fc 04:16 Triage completed. fc 04:18 Axel Donaldson RN is Primary Nurse. jd3 04:26 Sang Lees MD is Attending Physician. ps1 04:43 EKG done, by ED staff, reviewed by Sang Lees MD. jd3 05:27 Inserted saline lock: 20 gauge in right antecubital area, using aseptic technique. jd3 Blood collected. 05:28 CXR XRAY In Process Unspecified. EDMS 07:00 Report given to Nuzhat ZAFAR. jd3 07:01 Martin Reyes MD is Referral Physician. ps1 07:21 IV discontinued, intact, bleeding controlled, No redness/swelling at site. Pressure jl7 dressing applied. Administered Medications: 05:51 Drug: Bumex 1 mg Route: IVP; Site: right antecubital; jd3 06:50 Follow up: Response: No adverse reaction jd3 Outcome: 07:01 Discharge ordered by . ps1 07:20 Discharged to home ambulatory. jl7 07:20 Condition: stable 07:20 Discharge instructions given to patient, family, Instructed on discharge instructions, follow up and referral plans. medication usage, Demonstrated understanding of instructions, follow-up care, medications, Prescriptions given X 1. 07:21 Patient left the ED. jl7 Signatures: Dispatcher [employer] Karmen Concepcion Felicia RN RN fc Guillermina Forman RN RN lp1 Leobardo Velazco Jahala, RN RN jl7 Axel Donaldson RN RN jSang Becker MD MD ps1 Corrections: (The following items were deleted from the chart) 04:18 04:15 BP 172 / 85; Pulse 74bpm; Resp 18bpm; Pulse Ox 95% RA; Temp 97.6F Oral; oe fc 07:20 06:48 BP 164 / 80; Pulse 74bpm; Resp 95bpm; Spontaneous; Pulse Ox 96% RA; lp1 jl7
[2019-07-18 08:37] LABS: Platelet Estimate ADEQ; Urine White Blood Cell Casts OK
[2019-07-18 08:38] LABS: Anisocytosis 1+; Blood Morphology Comment NOTED (NOT SEEN); Hypochromasia 1+; Ovalocytes 1+
--- NOTE | 2019-07-18 08:42 | RAD REPORT ---
EXAM DESCRIPTION: RAD - Chest Single View - 07/18/2019 5:27 am CLINICAL HISTORY: Dyspnea COMPARISON: July 03, 2019 ; June 26, 2019 TECHNIQUE: AP portable chest image was obtained 0525 hours . FINDINGS: Lung volumes are low. Prominent interstitial opacification is present. Bilateral pleural e ffusions are present. Right base opacification is prominent. The pattern is similar to comparison. He art size is upper normal, similar to comparison. Vasculature is engorged. Perihilar interstitial zeinab jessica is increased. No pneumothorax. No acute bony abnormality seen. No acute aortic findings suspected . IMPRESSION: CHF/volume overload pattern is present similar to the comparison.
--- NOTE | 2019-07-18 14:50 | EKG ---
Test Date: 2019-07-18 Test Time: 04:26:27 Railway Signal Electrician: AZRA MEASUREMENT RESULTS: Intervals: Rate: 74 VA: 206 QRSD: 142 QT: 436 QTc: 483 Luckey: P: 42 VA: 206 QRS: -21 T: 175 INTERPRETIVE STATEMENTS: Normal sinus rhythm Left bundle branch block Abnormal ECG Compared to ECG 07/03/2019 14:10:59 No significant changes Electronically Signed On 07-18-19 14:50:11 EMBEDDED SOFTWARE DESIGN ENGINEER by Martin Reyes
== END 2019-07-18 07:21 | disposition home or self-care (01) ==
LOC: ER 03:54
DX: I50.9 Heart failure, unspecified (principal); E11.9 Type 2 diabetes mellitus without complications; I25.2 Old myocardial infarction; I25.10 Atherosclerotic heart disease of native coronary artery without angina pectoris; F17.210 Nicotine dependence, cigarettes, uncomplicated
CPT/HCPCS: 36415; 71045; 80053; 83880; 84484; 85025; 93005; 96374; 99284

== ENCOUNTER 2020-05-17 07:05 | Inpatient (IN) | payer OTHER, SELFPAY ==
--- OUTSIDE RECORDS SUMMARY | 2020-05-17 07:07 | XMS REPORT | Continuity of Care Document ---
:1955 Author Organization [facility] t Address [address] [place] [address] Care Team Providers Name Role Phone Arash Cleveland DO Attending Clinician Doctor Unassigned, Name Attending Clinician Unavailable Misael MITCHELL, W Attending Clinician Unavailable Jimy ZAFAR, E Attending Clinician Balaji DOMINGO M Attending Clinician ELMO Attending Clinician Unavailable Problems Condition Condition Condition Status Onset Resolution Last Treating Co mments Source Name Details Category Date Date Treatment Clinician Date History of History of Problem Resolve Univers anemia anemia d ity of [place] Physici ans History of History of Problem Resolve Univers atrial atrial d ity of flutter flutter [place] Physici ans History of History of Problem Resolve Univers Diabetic Diabetic d ity of foot foot [place] infection infection Phys ici ans History of History of Problem Resolve Univers gastric gastric d ity of polyp polyp [place] Physici ans History of History of Problem Resolve Univers Hypertensi Hypertensi d it y of ve urgency ve urgency [place] History of History of Problem Resolve [facility] myocardial myocardial d [place] y of infarction infarction [place] CAD CAD Problem Active Univers (coronary (coronary ity of artery artery [place] disease) disease) Physic i ans DM DM Problem Active Univers neuropathy neuropathy it y of , type II , type II [place] diabetes diabetes Physic i mellitus mellitus ans HLD HLD Problem Active Univers (hyperlipi (hyperlipi it y of demia) demia) [place] Physici ans HTN HTN Problem Active Univers (hypertens (hypertens it y of ion) ion) [place] Physici ans Peripheral Peripheral Problem Active U nivers arterial arterial ity of disease disease [place] Physici ans History of History of Problem Active U 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 [place] athy athy [place]ici ans Pneumonia Pneumonia Problem Active Uni vers ity of [place] Physici ans CHF CHF Problem Active Univers (congestiv (congestiv it y of e heart e heart [place] failure) failure) Physic i ans Burn Burn Problem Active Univers ity of [place] Physici ans Allergies, Adverse Reactions, Alerts Allergy Allergy Status Severity Reaction(s) Onset Inactive Treating Comm ents Source Name Type Date Date Clinician Linda Propensi Active Hallucinatio Univers TB12 ty to ns ity of adverse [place] reaction Physici s to ans drug (finding ) Family History Family Member Diagnosis Comments Start Date Stop Date Source Mother Family history of Univers ity of [place] diabetes mellitus Physici ans Mother Family history of Univers ity of [place] hypertension Physicians Mother Family history of Univers ity of [place] malignant neoplasm Physic ians Mother Family history of Univers ity of [place] coronary artery Physician s disease Mother Family history of Univers ity of [place] disease Physici ans Father Family history of Univers ity of [place] diabetes mellitus Physici ans Father Family history of Univers ity of [place] hypertension Physicians Father Family history of Univers ity of [place] coronary artery Physician s disease Sister Family history of Univers ity of [place] malignant neoplasm Physic ians Brother Family history of Univers ity of [place] pancreatic cancer Physici ans Social History Smoking Status Start Date Stop Date Source Ex-smoker (finding) [place] [facility] Physicians Medications Ordered Filled Start Stop Current Ordering Indication Dosage Frequency Signature Comments Components Source Medication Medication Date Date Medication? Clinician (SIG) Name Name Sulfamethox Sulfamethox 2020-0 Yes M.A. TAKE 1 Univers azole-Trime azole-Trime 3-17 TABLET ity of thoprim thoprim 00:00: TWICE [place] 800-160 MG 800-160 MG 00 DAILY. for Physici Oral Tablet Oral Tablet 7 days ans Amoxicillin Amoxicillin 2020-0 Yes M.A. 1 tablet Univers -Pot -Pot 3-05 by mouth 2 ity of Clavulanate Clavulanate 00:00: times [place] 875-125 MG 875-125 MG 00 daily x Physici Oral Tablet Oral Tablet 7days ans Doxycycline Doxycycline 2020-0 Yes M.A. TAKE 1 Univers Hyclate 100 Hyclate 100 3-05 CAPSULE ity of MG Oral MG Oral 00:00: EVERY 12 You as Capsule Capsule 00 HOURS Physici DAILY. FOR ans 7 DAYS Lisinopril Lisinopril 2019-0 Yes M.A. Q0.5D TAKE 1 Univers 5 MG Oral 5 MG Oral 3-05 TABLET ity of Tablet Tablet 00:00: TWICE [place] 00 DAILY. Physici ans Furosemide Furosemide 2019-0 Yes M.A. Q0.5D TAKE 1 Univers 40 MG Oral 40 MG Oral 3-05 TABLET i ty of Tablet Tablet 00:00: TWICE [place] 00 DAILY. Physici ans Nicotine 14 Nicotine 14 2019-0 Yes M.A. QD APPLY 1 Univers MG/24HR MG/24HR 3-05 PATCH ity of Transdermal Transdermal 00:00: DAILY [place] Patch 24 Patch 24 00 DIRECTED. Ph ysici Hour Hour ans Atorvastati Atorvastati 2019-0 Yes M.A. 1 TAKE 1 Univers n Calcium n Calcium 3-05 TABLET AT ity of 80 MG Oral 80 MG Oral 00:00: BEDTIME. [place] Tablet Tablet 00 Physici ans Plavix 75 Plavix 75 2019-0 Yes M.A. 1 QD TAKE 1 U nivers MG Oral MG Oral 3-05 TABLET ity of Tablet Tablet 00:00: DAILY. [place] 00 Physici ans HumuLIN N HumuLIN N 2019-0 Yes M.A. inject 18 Univers KwikPen 100 KwikPen 100 3-05 units ity of UNIT/ML UNIT/ML 00:00: [place] the [place] Subcutaneou Subcutaneou 00 skin 2 Physici s s times ans Suspension Suspension daily Pen-injecto Pen-injecto r r Metoprolol Metoprolol 2019-0 Yes M.A. 1 QD TAKE 1 Univers Succinate Succinate 3-05 TABLET ity of ER 50 MG ER 50 MG 00:00: DAILY. You as Oral Tablet Oral Tablet 00 P hysici Extended Extended ans Release 24 Release 24 Hour Hour Spironolact Spironolact 2019-0 Yes M.A. 1 QD TAKE 1 Univers one 25 MG one 25 MG 3-05 TABLET ity of Oral Tablet Oral Tablet 00:00: DAILY. [place] 00 Physici ans Ferrous Ferrous 2019-0 Yes M.A. Q0.3333D TAKE 1 U nivers Sulfate 325 Sulfate 325 3-05 TABLET 3 ity of (65 Fe) MG (65 Fe) MG 00:00: TIMES [place] Oral Tablet Oral Tablet 00 DAILY WITH Physici FOOD. ans Aspirin 81 Aspirin 81 2019- Yes M.A. QD CHEW AND Univers MG Oral MG Oral 3-05 SWALLOW 1 ity of Tablet Tablet 00:00: TABLET [place] Chewable Chewable 00 DAILY. Physi ci ans Nitroglycer Nitroglycer Yes M.A. PLACE 1 Univers in 0.4 MG in 0.4 MG 3-05 TABLET ity of Sublingual Sublingual 00:00: UNDER THE [place] Tablet Tablet 00 TONGUE Physici Sublingual Sublingual EVERY 5 ans MINUTES FOR UP TO 3 DOSES NEEDED FOR CHEST PAIN.CALL 911 IF PAIN PERSISTS. HumuLIN R HumuLIN R Yes M.A. inject 12 Univers 100 UNIT/ML 100 UNIT/ML 3-05 units ity of Injection Injection 00:00: under the [place] Solution Solution 00 skin 2 Physi ci times ans daily before breakfast and dinner. Vital Signs Vital Name Observation Time Observation Value Comments Source Systolic blood 2019-09-29 155 mm[Hg] Location: [facility] 16:23:00 Position: [place] Physician s Sitting Diastolic blood 2019-09-29 68 mm[Hg] Location: [facility] of pressure 16:23:00 Position: [place] Physician s Sitting Body height 2019-09-29 72 [in_us] [facility] 16:23:00 [place] Physician s Weight 2019-09-29 163 [lb_av] [facility] 16:23:00 [place] Physician s Body mass index 2019-09-29 22.11 kg/m2 [place] f (BMI) [Ratio] 16:23:00 [place] Physicia ns Body temperature 2019-09-29 97.9 [degF] Method: Oral University 16:23:00 [place] Physician s Heart Rate 2019-09-29 75 /min [facility] 16:23:00 [place] Physician s Procedures Procedure Date / Time Performing Source Performed Clinician [B] CMP 2019-09-28 [facility] of 00:00:00 [place] Physicians [B] CBC 2019-09-28 [facility] 00:00:00 [place] Physicians History of Cyst excision Univers ity [facility]icians History of Debridement Univers y [facility]icians History of Hand Surgery Universi ty [facility] of [facility] of University of Esophagogastroduodenoscopy [place] Physicians History of Colonoscopy Universit y [facility]icians History of Surgical removal of U niversity of foreign body [place] Physicians History of CABG [facility] Physicians Encounters Start End Encounter Admission Attending Care Care Encounter Source Date/Time Date/Time Type Type Clinicians Facility Department ID 2020-05-03 2020-05-03 Emergency Cristofer PAMARLEEN 1.2.840.114 [id number] 14:26:00 16:25:00 Christa Isaac [id number] [place] [id number] [place] [id number] 2020-05-03 2020-05-03 Orders Doctor ALPHONSE [id number] 00:00:00 00:00:00 Only Unassigned, HERNANDO [id number] [place] [facility] [id number] [id number] 2020-05-03 2020-05-03 Patient Jatin Douglas 1.2.840.114 [id number] 00:00:00 00:00:00 Outreach Hugh Mcnally [id number] [place] [id number] 2020-02-05 2020-02-05 Patient Trupti Ahn 1.2.840.114 [id number] 00:00:00 00:00:00 Outreach Vee Whitey [id number] [place] [id number] 2020-01-28 2020-01-28 Patient Trupti Ahn 1.2.840.114 [id number] 00:00:00 00:00:00 Outreach Vee Whitey [id number] [place] [id number] [id number] 2020-01-18 2020-01-18 Patient Keanu Douglasanders 1.2.840.114 [id number] 00:00:00 00:00:00 Outreach Hugh Mcnally [id number] [place] [id number] [id number] 2020-01-08 2020-01-08 Patient Keanu Douglasanders 1.2.840.114 [id number] 00:00:00 00:00:00 Outreach Hugh W Mcnally [id number] [place] [id number] [id number] 2020-01-07 2020-01-07 Patient Trupti Ahn 1.2.840.114 [id number] 00:00:00 00:00:00 Outreach Vee Mcnally [id number] [place] [id number] [id number] 2019-12-22 2019-12-22 Patient Trupti Ahn 1.2.840.114 [id number] 00:00:00 00:00:00 Outreach Vee Mcnally [id number] [place] [id number] [id number] 2019-12-16 2019-12-16 Patient Trupti Ahn 1.2.840.114 [id number] 00:00:00 00:00:00 Outreach Vee Mcnally [id number] [place] [id number] [id number] 2019-12-11 2019-12-11 Patient Jatin Douglas 1.2.840.114 [id number] 00:00:00 00:00:00 Outreach Hugh Whitey [id number] [place] [id number] [id number] 2019-12-10 2019-12-10 Patient Jatin Douglas 1.2.840.114 [id number] 00:00:00 00:00:00 Outreach Hugh Whitey [id number] [place] [id number] [id number] 2019-12-03 2019-12-03 Patient Jatin Douglas 1.2.840.114 [id number] 00:00:00 00:00:00 Outreach Hugh Whitey [id number] [place] [id number] [id number] 2019-12-02 2019-12-02 Patient Trupti Ahn 1.2.840.114 [id number] 00:00:00 00:00:00 Outreach Vee Mcnally [id number] [place] [id number] [id number] 2019-12-01 2019-12-01 Patient Jatin Douglas 1.2.840.114 [id number] 00:00:00 00:00:00 Outreach Hugh Mcnally [id number] [place] [id number] [id number] 2019-11-26 2019-11-26 Patient Jatin Douglas 1.2.840.114 [id number] 00:00:00 00:00:00 Outreach Hugh Mcnally [id number] [place] [id number] [id number] 2019-11-25 2019-11-25 Patient Trupti Ahn 1.2.840.114 [id number] 16:38:53 16:38:57 Outreach Vee Whitey [id number] [place] [id number] [id number] 2019-11-20 2019-11-20 Patient Trupti Ahn 1.2.840.114 [id number] 00:00:00 00:00:00 Outreach Vee Mcnally [id number] [place] [id number] [id number] 2019-11-16 2019-11-16 Orders Doctor ALPHONSE 1.2.840.114 [id number] 00:00:00 00:00:00 Only Unassigned, HERNANDO [id number] [place] [facility] 4.2.7.2.686 [id number] 2019-11-11 2019-11-11 Patient Jatin Douglas 1.2.840.114 [id number] 00:00:00 00:00:00 Outreach Hugh Mcnally [id number] [place] [id number] [id number] 2019-10-27 2019-10-27 Telephone BRIANNA Carpio [id number] 00:00:00 00:00:00 Grzegorz Allen [id number] [place] 4.2.7.2.686 [employer] [id number] [address] 2019-09-29 2019-09-29 Annette BORREGO [facility] [address] [place] [address] 15:00:00 15:00:00 t; IGOR BORREGO M.D. Advanced ity of Arabella COSTA M.D. Failure - Physic i [place] ans Results This patient has no known results.
--- OUTSIDE RECORDS SUMMARY | 2020-05-17 07:08 | XMS REPORT | Summary of Care ---
:1955 Author Organization [facility] Address [address] [place] [id number] Care Team Providers Name Role Phone Ra Carpio Primary Care Provider Raegan Yadav DO [employer] Reason for Visit Reason Comments Social Work Encounter Details Date Type Department Care Team Description 05/03/2020 Patient Outreach [facility] Hailey Douglas, CIRCULATION REPRESENTATIVE Social Work Network[address] [id number] Allergies Active Allergy Reactions Severity Noted Date Comments Epykkdboojvkg-Qg-Xenhcbgkntm Hallucinations 08/18/2019 Spironolactone Other - See comments 10/28/2019 K 6.2 documented as of this encounter (statuses as of 05/04/2020) Medications Medication Sig Dispensed Refills Start Date End Date Status nitroglycerin 0.[address] 1 tablet 1 Bottle 2 10/17/2017 Active sublingual tablet under the tongue every 5 (five) minutes as needed for Chest pain. aspirin 81 mg chewable Take 1 tablet by 30 tablet 0 10/18/2017 Active tablet mouth daily. nicotine 14 mg/24 hr Apply 1 Patch to 20 Patch 0 09/07/2019 Active patchIndications: area(s) every 24 Hypertension, (twenty-four) unspecified type hours. ondansetron 4 mg Take 1 tablet by 15 tablet 0 09/18/2019 Active disintegrating mouth every 8 tabletIndications: (eight) hours as Cough, Nausea needed for Nausea and Vomiting (N/V) for up to 15 doses. ferrous sulfate Take 1 tablet by 90 tablet 1 10/01/2019 Active (FERROUSUL) 325 mg (65 mouth 3 (three) mg iron) times daily with tabletIndications: PAD meals. (peripheral artery disease), MENDOZA (dyspnea on exertion), Essential hypertension, CAD, multiple vessel, Type 2 diabetes mellitus with diabetic neuropathy, Ischemic cardiomyopathy, Coronary artery disease involving ione coronary artery of ione heart without angina pectoris, Systolic congestive heart failure with reduced left ventricular function, NYHA class 3 clopidogreL 75 mg Take 1 tablet by 90 tablet 3 10/19/2019 Active tablet mouth daily. furosemide 40 mg tablet Take 1 tablet by 180 tablet 1 10/19/19 20 Active mouth every morning and evening. atorvastatin 80 mg Take 1 tablet by 90 tablet 3 10/19/2019 Active tablet mouth at bedtime. metoprolol succinate XL Take 1 tablet by 0 0 Active 50 mg 24 hr tablet mouth daily. amoxicillin 500 mg Take 1 capsule 14 capsule 0 10/28/2019 Active capsuleIndications: by mouth 2 (two) Type 2 diabetes times daily. mellitus without complication, with long-term current use of insulin Lactobacillus Take 1 tablet by 60 tablet 0 10/28/2019 Active Acidophilus 1 billion mouth 2 (two) cell TabIndications: times daily. Type 2 diabetes mellitus without complication, with long-term current use of insulin traMADol 50 mg Take 1 tablet by 15 tablet 0 10/28/2019 Active tabletIndications: Type mouth every 8 2 diabetes mellitus (eight) hours as without complication, needed for Pain with long-term current (scale 7-10). use of insulin metFORMIN 500 mg Take 1 tablet by 60 tablet 0 10/29/2019 Active tabletIndications: Type mouth 2 (two) 2 diabetes mellitus times daily with without complication, meals. with long-term current use of insulin ondansetron (ZOFRAN Take 1 tablet by 12 tablet 0 10/29/2019 Active ODT) 4 mg mouth every 8 disintegrating (eight) hours as tabletIndications: Type needed for 2 diabetes mellitus Nausea and without complication, Vomiting (N/V). with long-term current use of insulin documented as of this encounter (statuses as of 05/04/2020) Active Problems Problem Noted Date Hypoglycemia 10/27/2019 CAD (coronary artery disease) 09/29/2019 CKD stage 2 due to type 2 diabetes mellitus 09/29/2019 OSCAR (acute kidney injury) 09/29/2019 Fe deficiency anemia 09/29/2019 Hyperkalemia 09/29/2019 SOB (shortness of breath) 09/12/2019 Troponin I above reference range 08/19/2019 Hypertensive urgency 08/19/2019 CHF (congestive heart failure) 08/18/2019 CHF exacerbation 08/18/2019 Anemia, unspecified type 03/25/2018 Overview: Added automatically from request for nick guallpa [id number] Dysphagia, unspecified type 03/25/2018 Overview: Added automatically from request for nick guallpa [id number] Atrial flutter 10/15/2017 Chronic diastolic congestive heart failure 10/14/2017 HTN (hypertension) 10/14/2017 HLD (hyperlipidemia) 10/14/2017 Type 2 diabetes mellitus without complication 10/15/19 18 Pneumonia 10/13/2017 NSTEMI (non-ST elevated myocardial infarction) 018 History of CO (myocardial infarction) 09/12/2017 Foreign body in foot, left 09/03/2017 Left foot infection 09/02/2017 Diabetic foot infection 08/30/2017 Right foot infection 08/30/2017 Foot abscess, right 08/30/2017 Infection 08/30/2017 documented as of this encounter (statuses as of 05/04/2020) Immunizations Name Administration Dates Next Due Pneumococcal Polysaccharide, PPSV23 (PNEUMOVAX) 09/23/2017 TDAP (ADACEL) VACCINE 09/18/2019 documented as of this encounter Social History Tobacco Use Types Packs/Day Years Used Date Former Smoker Cigarettes 2 40 Smokeless Tobacco: Never Used Comments: 2-2.5 PPD X 40 years, down to 1PPD since 02/2018 Alcohol Use Drinks/Week oz/Week Comments Yes quit5 years ago Education Answer Date Recorded What is the highest level of school you have High school gra duate 09/29/2019 completed or the highest degree you have received? Financial Resource Strain Answer Date Recorded How hard is it for you to pay for the very basics like Somew hat hard 09/29/2019 food, housing, medical care, and heating? Food Insecurity Answer Date Recorded Within the past 12 months, you worried that your food would Never true 09/29/2019 run out before you got money to buy more. Within the past 12 months, the food you bought just didn't N ever true 09/29/2019 last and you didn't have money to get more. Transportation Needs Answer Date Recorded In the past 12 months, has lack of transportation kept you f rom No 09/29/2019 medical appointments or from getting medications? In the past 12 months, has lack of transportation kept you f rom No 09/29/2019 meetings, work, or getting things needed for daily living? Sex Assigned at Date Recorded Not on file COVID-19 Exposure Response Date Recorded In the last month, have you been in contact with No / Unsure 05/03/2020 1:35 PM CDT someone who was confirmed or suspected to have Coronavirus / COVID-19? documented as of this encounter Last Filed Vital Signs Not on filedocumented in this encounter Progress Notes Hugh Douglas MSW - 05/03/2020 11:45 AM CDTSocial Worker Note: CHUTE TENDER spoke with patient's bulk fluids handler Edgardo who stated that the patient was on his way to having a blood transfusion and she wanted to know if I could meet them in [place] at [facility] with a [employer] Laboratory Technician form. CHUTE TENDER advised that I cannot but the SW at [facility] should be able to print a form for them to fill out and the patient to have two witnesses present. Hugh Douglas LMSW [facility] Ph. documented in this encounter Plan of Treatment Health Maintenance Due Date Last Done Comments HEPATITIS C (HCV) SCREEN 1955 EYE EXAM 1966 FOOT EXAM 1974 COLON CANCER SCREENING FIT DNA 2006 EVERY 3 YEARS COLON CANCER SCREENING 2006 SIGMOIDOSCOPY EVERY 5 YEARS Zoster Recombinant Vaccine 2006 (SHINGRIX) (1 of 2) URINE MICROALBUMIN 08/30/2018 08/30/2017 PNEUMOCOCCAL 0-64 YEARS COMBINED 09/23/2018 09/23/2017 SERIES (2 of 3 - PCV13) INFLUENZA VACCINE (#1) 2020 HgA1C 04/26/2020 10/26/2019, 08/18/2019, 10/13/2017, Additional history exists LUNG CANCER SCREEN: Recommended 09/28/2020 09/29/2019, 08/15 for age 55-80 with 30 + pack year history COLON CANCER SCREENING ANNUAL 09/29/2020 09/30/2019 FIT/FOBT Depression Screening 10/11/2020 10/12/2019 LDL-C 10/25/2020 10/26/2019, 08/18/2019, 08/18/2019, Additional history exists CREATININE (SERUM) 05/03/2021 05/03/2020, 10/28/2019, 10/27/2019, Additional history exists COLONOSCOPY 08/26/2029 08/26/2019 Colorectal Cancer Screening 08/26/2029 DTaP,Tdap,and Td Vaccines (2 - Td) 09/17/2029 09/18/2019 documented as of this encounter Goals Goal Patient Goal Associated Recent Patient-Stated? Author Type Problems Progress Record your Blood Pressure No Bhavik Ahn blood pressure E, RN once a day Note: I will take my blood pressure daily at the same time of day. I will record the blood pressure reading shown on the blood pressure machine in a log book. I will take my blood pressure log book t o all my clinic visits. Access resources General No Ra Ahn, RN Note: I will keep all medical appointments as directed. I understand that keeping my medical appointments is part of keeping myself healthy. If I need to cancel for any reason, I wi ll call the clinic as far in advance as possible and reschedule. I will see an eye doctor for my annual Helio iabetes Eye Exam (dilated). I will take my medications as directed e very day. If I am unable to take my medications du e to illness, I will let my provider know. I will submit an application to the [facility]. I will complete CASEBOOK application. documented as of this encounter Implants Implanted Type Area Tile Helper Device Identifier Shelf Exp iration Model / Date Serial / L ot Hip HIP Left Knee Screws documented as of this encounter Results Not on filedocumented in this encounter Insurance Payer Benefit Plan / Subscriber ID Effective Dates Phone Addre ss Type Group MEDICARE MEDICARE PART [id number] 2020-Roddy [phone] Medicare A & B t 2 [id number] KAVIN LOMBARDI [id number] documented as of this encounter
--- OUTSIDE RECORDS SUMMARY | 2020-05-17 07:08 | XMS REPORT | Summary of Care ---
:1955 Author Organization [facility] - Health Address [address] [place] [address] Care Team Providers Name Role Phone Ra Carpio Primary Care Provider Raegan Yadav DO Hrbp Reason for Visit Reason Comments Other Sent from PCP for low H&H Auth/Cert Status Reason Specialty Diagnoses / Referred By Referred To Procedures Contact Contact Emergency Medicine [facility] Em ergency Dept [address] [place] [address] Fax: Encounter Details Date Type Department Care Team Description 05/03/2020 Emergency ADC-Emergency Christa Cleveland, Syncope , unspecified Department DO syncope type (Primary [address]) [place], [place] [id number] [place] [address] [phone] Allergies Active Allergy Reactions Severity Noted Date Comments Rcfufnjuzpvzp-Vw-Joifigzrzoa Hallucinations 08/18/2019 Spironolactone Other - See comments 10/28/2019 K 6.2 documented as of this encounter (statuses as of 05/03/2020) Medications Medication Sig Dispensed Refills Start Date [...] neuropathy, Ischemic cardiomyopathy, Coronary artery disease involving [place] coronary artery of [place] heart without angina pectoris, Systolic congestive heart [...] (N/V). with long-term current use of insulin insulin NPH hum/reg inject under 0 Active insulin hm (NOVOLIN the skin. 70/30 SC) escitalopram oxalate 20 Take 20 mg by 0 Active mg tablet mouth daily. traZODone 100 mg tablet Take 100 mg by 0 Active mouth at bedtime. documented as of this encounter (statuses as of 05/03/2020) Active Problems Problem Noted Date Hypoglycemia 10/27/2019 [...] Overview: Added automatically from request for nick ramu [id number] Dysphagia, unspecified type 03/25/2018 Overview: Added automatically from request for nick ramu [id number] Atrial flutter 10/15/2017 Chronic diastolic congestive heart failure 10/14/2017 HTN (hypertension) 10/14/2017 HLD (hyperlipidemia) 10/14/2017 Type 2 diabetes mellitus without complication 10/15/19 18 Pneumonia 10/13/2017 NSTEMI (non-ST elevated myocardial infarction) 018 History of NV (myocardial infarction) 09/12/2017 Foreign body in foot, left 09/03/2017 Left foot infection 09/02/2017 Diabetic foot infection 08/30/2017 Right foot infection 08/30/2017 Foot abscess, right 08/30/2017 Infection 08/30/2017 documented as of this encounter (statuses as of 05/03/2020) Immunizations Name Administration Dates Next Due Pneumococcal [...] of school you have High school gra daniela 09/29/2019 completed or the highest degree you [...] of this encounter Last Filed Vital Signs Vital Sign Reading Time Taken Comments Blood Pressure 157/82 05/03/2020 4:02 PM CDT Pulse 59 05/03/2020 4:02 PM CDT Temperature 37 C (98.6 F) 05/03/2020 1:42 PM CDT Respiratory Rate 18 05/03/2020 4:02 PM CDT Oxygen Saturation 100% 05/03/2020 4:02 PM CDT Inhaled Oxygen Concentration - - Weight 72.6 kg (160 lb) 05/03/2020 1:42 PM CDT Height 182.9 cm (6') 05/03/2020 1:42 PM CDT Body Mass Index 21.7 05/03/2020 1:42 PM CDT documented in this encounter Discharge Instructions Christa Osuna DO - 05/03/2020DIAGNOSIS 1. Anemia NO LIFE-THREATENING FINDINGS ON TODAY'S EXAM. PROCEDURES IN THE ER TODAY: Blood work EKG MEDICATIONS ADMINISTERED IN THE ER TODAY: None YOUR PRESCRIPTIONS AND [id number] MEDICATION RECOMMENDATIONS: Please take iron tablets daily. SPECIAL CARE INSTRUCTIONS: None FOLLOW-UP RECOMMENDATIONS: RECOMMEND FOLLOW-UP WITH A PRIMARY CARE PROVIDER OR SPECIALIST IN 2-5 DAYS, ESPECIALLY IF NO IMPROVEMENT IN SYMPTOMS. TO FOLLOW-UP WITHIN THE [facility], TRY THESE OPTIONS (CLINIC APPOINTMENTS AVAILABLE ON [id number] BASIS): 1. SCHEDULE AN APPOINTMENT ONLINE AT [email or web address] 2. OR CALL THE [facility] ACCESS CENTER AT OR 3. OR CALL YOUR [facility] PHYSICIAN'S OFFICE DIRECTLY IF YOU ARE ALREADY AN ESTABLISHED [facility] PATIENT. OR, YOU MAY FOLLOW-UP WITH A PROVIDER OF YOUR CHOICE, SUCH : 1. A PHYSICIAN OF YOUR CHOICE 2. [facility] AND [facility], . LOCATIONS IN [facility] 3. [facility], [address], [place]; [phone] RETURN TO ER FOR WORSENING OF SYMPTOMS. AttachmentsThe following attachments cannot be sent through Care Everywhere. Anemia (Estonian)documented in this encounter ED Notes Anjana Cormier RN - 05/03/2020 1:36 PM CDTCC: Pt presents to ER from home. Was sent over from his PCP Dr. Carpio for low H&H. Pt Is symptomatic with SOB, had syncopal episode while walking Saturday, fatigue. PMHx: IDDM, CKD, HTN, High cholesterol, depression, CHF PSH: quad bypass 2020, tumor removal, left hip replaced, Left foot sx, Jg knee sx MEDS: See hx Tetanus: UTD Awake, alert, oriented, resp reg unlabored, skin cool, color pale for race, moves all ext without difficulty, wheelchair Appears in no distress Christa Cleveland DO - 05/03/2020 1:26 PM CDT [facility] Emergency Department Note Patient Name: Mumtaz Anderson Date of : 1955 65 year old male Treatment Room: NE6/NE6 Primary Care Physician: Grzegorz Carpio Patient Escorted by: Self [9] Mode of Arrival: Personal means [1] EMS Treatment Prior to ED Arrival: QUALITY ASSURANCE NURSE treatment: None Travel and Exposure Screening: Symptoms Does patient have any of these symptoms?: (not recorded) Exposure Screening Has patient had contact with someone with a communicable disease in the last month?: (not recorded) Diseases exposed to:: (not recorded) Is Patient ?: (not recorded) Exposure Date: (not recorded) Chief Complaint: Chief Complaint Patient presents with Other Sent from PCP for low H&H History of Present Illness: Patient presents from home after receiving a call from PCP office about low Hgb/hct on routine labs from office visit yesterday. Patient denies complaints currently. Has h/o anemia and is on iron tablets daily. States his stool always looks black to him. No blood in stool. No n/v. No cp or sob. In termittently has falls but none today. Sometimes feels lightheaded but not now. Uses a walker and wheelchair at home for ambulation. Also has a dice person. Has h/o cad s/p CABG, dm, htn and lipids.Also has h/o CKD. Here for eval. Past Medical History/Immunizations: Past Medical History: Diagnosis Date CAD (coronary artery disease) CHF (congestive heart failure) Chronic kidney disease DM neuropathy, type II diabetes mellitus History of NV (myocardial infarction) 09/2017 HLD (hyperlipidemia) HTN (hypertension) Peripheral arterial disease Tetanus received in last 5 years: Yes Childhood immunizations: Up-to-date Allergies: Allergies Allergen Reactions Anextuss [Qucqhzcdpwekv-Za-Ksdfhtdhvmk] Hallucinations Spironolactone Other - See comments K 6.2 Past Social History: Tobacco Use Former Smoker; Smoked an average of 2 packs/day for 40 years; Smoked: Cigarettes. Smokeless Tobacco: Never used smokeless tobacco. Comments: 2-2.5 PPD X 40 years, down to 1PPD since 02/2018 Alcohol Use Yes. Comments: quit5 years ago Drug Use No. Past Surgical History: Past Surgical History: Procedure Laterality Date COLONOSCOPY Left 08/26/2019 Surgeon: Marlo Osman MD; Location: [facility] OR [facility] CORONARY ARTERY BYPASS GRAFT N/A 09/01/2019 Surgeon: Yu Marina MD; Location: [facility] OR [facility] CYST EXCISION N/A 10/2016 perianal area ESOPHAGOGASTRODUODENOSCOPY N/A 08/26/2019 Surgeon: Marlo Osman MD; Location: [facility] OR Location FOOT DEBRIDEMENT Left 09/02/2017 Surgeon: Johanny Krishnamurthy DPM; [facility] FOOT DEBRIDEMENT Left 09/03/2017 Surgeon: Johanny Krishnamurthy DPM; Location: [facility] FOOT DEBRIDEMENT Left 09/05/2017 Surgeon: Johanny Krishnamurthy DPM; Location: [facility] HAND/FINGER SURGERY UNLISTED 1979 KNEE ARTHROSCOPY Bilateral 1979 SOFT TISSUE FOREIGN BODY REMOVAL Left 09/02/2017 Surgeon: Johanny Krishnamurthy DPM; Location: [facility] WOUND VAC PLACEMENT (SHX) Left 09/05/2017 Surgeon: Johanny Krishnamurthy DPM; Location: [facility] Review of Systems: Review of Systems Constitutional: Negative for chills and fever. Respiratory: Negative for cough and shortness of breath. Cardiovascular: Negative for chest pain. Gastrointestinal: Negative for abdominal pain, nausea and vomiting. Genitourinary: Negative for dysuria. Musculoskeletal: Negative for arthralgias, neck pain and neck stiffness. Neurological: Negative for dizziness. Psychiatric/Behavioral: Negative for agitation. Physical Exam: ED Triage Vitals [05/03/20 1342] Weight 72.6 kg (160 lb) Actual or estimated Estimated by patient/family report Height 1.829 m (6') BP (!) 150/67 Pulse 63 Resp 18 Temp 37 C (98.6 F) Temp source Oral SpO2 100 % Measured on Room air Physical Exam Vitals signs and nursing note reviewed. Constitutional: Appearance: Normal appearance. He is normal weight. HENT: Head: Normocephalic and atraumatic. Eyes: Comments: Pale pink conjunctiva Neck: Musculoskeletal: Normal range of motion and neck supple. Cardiovascular: Rate and Rhythm: Normal rate. Pulses: Normal pulses. Pulmonary: Effort: Pulmonary effort is normal. No respiratory distress. Musculoskeletal: Normal range of motion. Skin: General: Skin is warm. Neurological: General: No focal deficit present. Mental Status: He is alert. Radiology: No results found for this visit on 05/03/20. Lab Results (24h): Recent Results (from the past 24 hour(s)) Type and Screen - Type and Screen expires at midnight on the 3rd day after it was drawn. A current Type and Screen is required when RBCs are requested. For all other blood products, a Type and Screen performed during the current hospitalization i... Collection Time: 05/03/20 2:52 PM Result Value Ref Range ABO & RH A Positive IAT Negative CBC with Differential Collection Time: 05/03/20 2:53 PM Result Value Ref Range WBC 7.80 4.20 - 10.70 10*3/L RBC 3.84 (L) 4.26 - 5.52 10*6/L HGB 7.9 (L) 12.2 - 16.4 g/dL HCT 25.3 (L) 38.4 - 49.3 % MCV 65.9 (L) 81.7 - 95.6 fL MCH 20.6 (L) 26.1 - 32.7 pg MCHC 31.2 31.2 - 35.0 g/dL RDW-SD 35.9 (L) 38.5 - 51.6 fL RDW-CV 15.5 (H) 12.1 - 15.4 % PLT 183 150 - 328 10*3/L MPV 12.7 9.8 - 13.0 fL IPF % 3.0 1.2 - 10.7 % NRBC/100 WBC 0.0 0.0 - 10.0 /100 WBCs NRBC x10^3 <0.01 10*3/L GRAN MAT (NEUT) % 65.3 % IMM GRAN % 0.30 % LYMPH % 19.0 % MONO % 8.6 % EOS % 6.2 % BASO % 0.6 % GRAN MAT x10^3(ANC) 5.10 1.99 - 6.95 10*3/uL IMM GRAN x10^3 <0.03 0.00 - 0.06 10*3/uL LYMPH x10^3 1.48 1.09 - 3.23 10*3/uL MONO x10^3 0.67 0.36 - 1.02 10*3/uL EOS x10^3 0.48 0.06 - 0.53 10*3/uL BASO x10^3 0.05 0.01 - 0.09 10*3/uL Basic Metabolic Panel (NA, K, CL, CO2, GLUCOSE, BUN, CREATININE, CA) Collection Time: 05/03/20 2:53 PM Result Value Ref Range NA 137 135 - 145 mmol/L K 4.2 3.5 - 5.0 mmol/L CL 100 98 - 108 mmol/L CO2 TOTAL 28 23 - 31 mmol/L AGAP 9 2 - 16 BUN 55 (H) 7 - 23 mg/dL GLUCOSE 141 (H) 70 - 110 mg/dL CREATININE 1.76 (H) 0.60 - 1.25 mg/dL CALCIUM 9.4 8.6 - 10.6 mg/dL eGFR Calculation (Non-) 39.2 mL/min/1.73m2 eGFR Calculation () 47.5 mL/min/1.73m2 Hepatic Function Panel (ALB, T.PRO, BILI T, BU/BC, ALT, AST, ALK PHOS) Collection Time: 05/03/20 2:53 PM Result Value Ref Range TOTAL BILI 0.5 0.1 - 1.1 mg/dL BILI UNCON 0.5 0.1 - 1.1 mg/dL BILI CONJ 0.0 0.0 - 0.3 mg/dL T PROTEIN 6.5 6.3 - 8.2 g/dL ALBUMIN 3.6 3.5 - 5.0 g/dL ALK PHOS 62 34 - 122 U/L ALTv 49 5 - 50 U/L AST(SGOT) 50 (H) 13 - 40 U/L Troponin I Collection Time: 05/03/20 2:53 PM Result Value Ref Range TROPONIN I 0.034 <=0.034 ng/mL N-TERMINAL PRO-BNP Collection Time: 05/03/20 2:53 PM Result Value Ref Range NT-proBNP 5,460 (H) <=125 pg/mL EKG: Nsr, no stemi, QTc 471, rate 61 Orders and Treatments: Orders Placed This Encounter Procedures CBC with Differential Basic Metabolic Panel (NA, K, CL, CO2, GLUCOSE, BUN, CREATININE, CA) Hepatic Function Panel (ALB, T.PRO, BILI T, BU/BC, ALT, AST, ALK PHOS) Troponin I Type and Screen - Type and Screen expires at midnight on the 3rd day after it was drawn. A current Type and Screen is required when RBCs are requested. For all other blood products, a Type and Screen performed during the current hospitalization i... N-TERMINAL PRO-BNP Orders Placed This Encounter Medications insulin NPH hum/reg insulin hm (NOVOLIN 70/30 SC) escitalopram oxalate 20 mg tablet traZODone 100 mg tablet ED COURSE patient presents for eval for low Hgb/hct from PCP office yesterday. Has h/o CKD, CAD (s/p CABG), dm, htn and lipids. Is on iron tablets and has black color stool. Uses a walker and wheelchair to ambulate. Intermittently has falls at home. Denies cp and sob today. VSS here in the EC. Conjunctiva pale pink. Abdomen soft and not tender. EKG shows nsr, no stemi. Will check labs including Hgb/hct. Final dispo pending. 1610 - labs show Hgb 7.9. Creatinine baseline for him at 1.76. BNP improved from prior. Troponin negative. The blood bank will not authorize a transfusion unless a Hgb is <7, which his is not. Patient is currently asymptomatic. Will discharge home in stable condition with PCP f/u. Advised to take iron tablets daily. MDM: Coding Scoring Tools: No data recorded Diagnosis/Impression: ICD-10-CM ICD-9-CM 1. Syncope, unspecified syncope type R55 780.2 Disposition/Condition: ED Disposition ED Disposition Condition Comment Disch - Home Stable Discharge Medications: Patient's Medications START taking these medications No medications on file CONTINUE taking these medications which have NOT CHANGED AMOXICILLIN 500 MG CAPSULE Take 1 capsule by mouth 2 (two) times daily. ASPIRIN 81 MG CHEWABLE TABLET Take 1 tablet by mouth daily. ATORVASTATIN 80 MG TABLET Take 1 tablet by mouth at bedtime. CLOPIDOGREL 75 MG TABLET Take 1 tablet by mouth daily. ESCITALOPRAM OXALATE 20 MG TABLET Take 20 mg by mouth daily. FERROUS SULFATE (FERROUSUL) 325 MG (65 MG IRON) TABLET Take 1 tablet by mouth 3 (three) times daily with meals. FUROSEMIDE 40 MG TABLET Take 1 tablet by mouth every morning and evening. INSULIN NPH HUM/REG INSULIN HM (NOVOLIN 70/30 SC) inject under the skin. LACTOBACILLUS ACIDOPHILUS 1 BILLION CELL TAB Take 1 tablet by mouth 2 (two) times daily. METFORMIN 500 MG TABLET Take 1 tablet by mouth 2 (two) times daily with meals. METOPROLOL SUCCINATE XL 50 MG 24 HR TABLET Take 1 tablet by mouth daily. NICOTINE 14 MG/24 HR PATCH Apply 1 Patch to area(s) every 24 (twenty-four) hours. NITROGLYCERIN 0.[address] 1 tablet under the tongue every 5 (five) minutes as needed for Chest pain. ONDANSETRON (ZOFRAN ODT) 4 MG DISINTEGRATING TABLET Take 1 tablet by mouth every 8 (eight) hoursas needed for Nausea and Vomiting (N/V). ONDANSETRON 4 MG DISINTEGRATING TABLET Take 1 tablet by mouth every 8 (eight) hours as needed for Nausea and Vomiting (N/V) for up to 15 doses. TRAMADOL 50 MG TABLET Take 1 tablet by mouth every 8 (eight) hours as needed for Pain (scale 7-10). TRAZODONE 100 MG TABLET Take 100 mg by mouth at bedtime. START taking Modified Medications as Prescribed No medications on file STOP taking these medications No medications on file Follow-up: Electronically signed by: Christa Cleveland DO 05/03/2020 3:18 PM documented in this encounter Miscellaneous Notes ED Nurse Note - Lashell Sunshine RN - 05/03/2020 4:24 PM CDTPatient provided AVS, Discharge instructions. AVS, return precautions, and told to follow-up with PCP. Patient wheeled out to Vehicle by EMT. No acute distress noted. D Nurse Note - Toya Mary RN - 05/03/2020 2:29 PM CDTPatient has expressed verbal permission to speak with Edgardo (caregiver) [phone] concerning any and all medical information. Password: Chief He has brought lab results from yesterday showing values of Hgb 7.9, Hct 26. documented in this encounter Plan of Treatment [...] 08/18/2019, 08/18/2019, Additional history exists CREATININE (SERUM) 10/27/2020 10/28/2019, 10/27/2019, 10/26/2019, Additional history exists COLONOSCOPY 08/26/2029 08/26/2019 Colorectal Cancer Screening 08/26/2029 DTaP,Tdap,and Td Vaccines (2 - Td) 09/17/2029 09/18/2019 documented as of this encounter Goals Goal Patient Goal Associated Recent Patient-Stated? Author Type Problems Progress Record your Blood Pressure Bhavik Crisostomo blood pressure E, RN once a day Note: I will take my blood pressure daily at the same time of day. I will record the blood pressure reading shown on the blood pressure machine in a log book. I will take my blood pressure log book t o all my clinic visits. Access resources General Ra Crisostomo, RN Note: I will keep all medical appointments as directed. I understand that keeping my medical appointments is part of keeping myself healthy. If I need to cancel for any reason, I wi ll call the clinic as far in advance as possible and reschedule. I will see an eye doctor for my annual D iabetes Eye Exam (dilated). I will take my medications as directed e very day. If I am unable to take my medications du e to illness, I will let my provider know. I will submit an application to the [facility]. I will complete CASEBOOK application. documented as of this encounter Implants Implanted Type Area Perinatal Breastfeeding Assistant Device Identifier Shelf Exp iration Model / Date Serial / L ot Hip HIP Left Knee Screws documented as of this encounter Procedures Procedure Name Priority Date/Time Associated Diagnosis Comme nts N-TERMINAL PRO-BNP STAT 05/03/2020 2:53 PM Syncope, unspec ified Results for this CDT syncope type procedure are i n the results section. CBC WITH DIFF STAT 05/03/2020 2:53 PM Syncope, unspecified Results for this CDT syncope type procedure are i n the results section. BASIC METABOLIC STAT 05/03/2020 2:53 PM Syncope, unspecifi ed Results for this PANEL (NA, K, CL, CDT syncope type procedure are in CO2, GLUCOSE, BUN, the resul ts CREATININE, CA) section. HEPATIC FUNCTION STAT 05/03/2020 2:53 PM Syncope, unspecif ied Results for this PANEL (31673) CDT syncope type procedure are in (ALB,T.PRO,BILI the results T,BU/BC,ALT,AST,ALK section. PHOS) TROPONIN I STAT 05/03/2020 2:53 PM Syncope, unspecified Results for this CDT syncope type procedure are i n the results section. HB ABO GROUPING Routine 05/03/2020 2:52 PM Syncope, unspecifi ed Results for this CDT syncope type procedure are i n the results section. EKG-12 LEAD STAT 05/03/2020 2:00 PM CDT documented in this encounter Results N-TERMINAL PRO-BNP (05/03/2020 2:53 PM CDT) Pathologist Sig nature NT-proBNP 5,460 (H) <=125 pg/mL [facility] Specimen Blood - VENOUS Narrative Performed At Biotin has been reported to cause a negative [facility] bias, interpret results relative to patient's use of biotin. Performing Organization Address City/State/Zipcode Phone Number [facility] CLIA: [id number] [place] [address] Troponin I (05/03/2020 2:53 PM CDT) Pathologist Sig nature TROPONIN I 0.034 <=0.034 ng/mL [facility] Specimen Blood - VENOUS Narrative Performed At Equal or Less than 0.034 ng/ml---Normal [facility] Note: Cardiac troponin begins to rise 3-4 hours after the onset of ischemia. Repeat in 4-6 hours if the sample was drawn within 3-4 hours of the onset of the symptom and found normal. Between 0.035 and 0.120 ng/mL--- Borderline. Questionable myocardial injury or necros is Note: Serial measurement may be necessary to confirm or exclude the diagnosis of myocardial injury or necrosis; Clinical correlation (symptoms, EKGs, imaging studies, and others) required; Repeat in 4-6 hours if clinically indicated. Equal or Higher than 0.121 ng/mL---Abnormal. Myocardial Injury or Necrosis Likely Biotin has been reported to cause a negative bias, interpret results relative to patient's use of biotin. Performing Organization Address [facility] Phone Number [facility] CLIA: [id number] [place], [place] [id number] LABORATORY [address] [place] [address] Hepatic Function Panel (ALB, T.PRO, BILI T, BU/BC, ALT, AST, ALK PHOS) (05/03/2020 2:53 PM CDT) Pathologist Sig nature TOTAL BILI 0.5 0.1 - 1.1 mg/dL [facility] BILI UNCON 0.5 0.1 - 1.1 mg/dL [facility] BILI CONJ 0.0 0.0 - 0.3 mg/dL [facility] T PROTEIN 6.5 6.3 - 8.2 g/dL [facility] ALBUMIN 3.6 3.5 - 5.0 g/dL [facility] ALK PHOS 62 34 - 122 U/L [facility] ALTv 49 5 - 50 U/L [facility] AST(SGOT) 50 (H) 13 - 40 U/L [facility] Specimen Blood - VENOUS Performing Organization Address [facility] Phone Number [facility] CLIA: [id number] [place] [address] [place] [address] Basic Metabolic Panel (NA, K, CL, CO2, GLUCOSE, BUN, CREATININE, CA) (05/03/2020 2:53 PM CDT) NA 137 135 - 145 [facility] mmol/L [facility] K 4.2 3.5 - 5.0 [facility] mmol/L [facility] CL 100 98 - 108 mmol/L [facility] CO2 TOTAL 28 23 - 31 mmol/L [facility] AGAP 9 2 - 16 [facility] BUN 55 (H) 7 - 23 mg/dL [facility] GLUCOSE 141 (H) 70 - 110 mg/dL [facility] CREATININE 1.76 (H) 0.60 - 1.25 [facility] mg/dL [facility] CALCIUM 9.4 8.6 - 10.6 [facility] mg/dL [facility] eGFR Calculation 39.2 mL/min/1.73m2 [facility] ([facility] LABORATORY Citizen [place]) eGFR Calculation 47.5 mL/min/1.73m2 [facility] () [facility] Specimen Blood - VENOUS Narrative Performed At [facility] ([facility] and Staging of Kidney Disease* + + +- + | GFR (mL/min/1.73 m2) | With Kidney Damage | Without Kidney Damage + + +- + | >90 | Stage one | Normal + + +- + | 60-89 | Stage two | Decreased GFR + + +- + | 30-59 | Stage three | Stage three + + +- + | 15-29 | Stage four | Stage four + + +- + | <15 (or dialysis) | Stage five | Stage five + + +- + *Each stage assumes the associated GFR level has been in effect for at least three months. Stages 1 to 5, with or without kidney disease, indicate chronic kidney disease. Notes: Determination of stages one and two (with eGFR >59mL/min/1.73 m2) requires estimation of kidney damage for at least three months as defined by structural or functional abnormalities of the kidney, manifested by either: Pathological abnormalities or Markers of kidney damage (including abnormalities in the composition of the blood or urine or abnormalities in imaging tests). Performing Organization Address City/State/Zipcode Phone Number [facility] CLIA: [id number] [place] [address] CBC with Differential (05/03/2020 2:53 PM CDT) WBC 7.80 4.20 - 10.70 [facility] 10*3/L [facility] RBC 3.84 (L) 4.26 - 5.52 [facility] 10*6/L [facility] HGB 7.9 (L) 12.2 - 16.4 [facility] g/dL [facility] HCT 25.3 (L) 38.4 - 49.3 % [facility] MCV 65.9 (L) 81.7 - 95.6 [facility] MCH 20.6 (L) 26.1 - 32.7 [facility] pg [facility] MCHC 31.2 31.2 - 35.0 [facility] g/dL [facility] RDW-SD 35.9 (L) 38.5 - 51.6 [facility] RDW-CV 15.5 (H) 12.1 - 15.4 % [facility] PLT 183 150 - 328 [facility] 10*3/L [facility] MPV 12.7 9.8 - 13.0 fL [facility] IPF % 3.0Comment: Platelet 1.2 - 10.7 % [facility] count measured by HOSPITAL fluorescence method. LABORATORY NRBC/100 WBC 0.0 0.0 - 10.0 [facility] /100 WBCs [facility] NRBC x10^3 <0.01 10*3/L [facility] GRAN MAT (NEUT) % 65.3 % [facility] IMM GRAN % 0.30 % [facility] LYMPH % 19.0 % [facility] MONO % 8.6 % [facility] EOS % 6.2 % [facility] BASO % 0.6 % [facility] GRAN MAT 5.10 1.99 - 6.95 [facility] x10^3(ANC) 10*3/uL [facility] IMM GRAN x10^3 <0.03 0.00 - 0.06 [facility] 10*3/uL [facility] LYMPH x10^3 1.48 1.09 - 3.23 [facility] 10*3/uL HOSPITAL LABORATORY MONO x10^3 0.67 0.36 - 1.02 [facility] 10*3/uL [facility] EOS x10^3 0.48 0.06 - 0.53 [facility] 10*3/uL HOSPITAL LABORATORY BASO x10^3 0.05 0.01 - 0.09 [facility] 10*3/uL HOSPITAL LABORATORY Specimen Blood - VENOUS Performing Organization Address City/[facility]/Zipcode Phone Number [facility] CLIA: [id number] [place] [address] Type and Screen - Type and Screen expires at midnight on the 3rd day after it was drawn. A current Type and Screen is required when RBCs are requested. For all other blood products, a Type and Screen performed during the current hospitalization i... (05/03/2020 2:52 PM CDT) [facility] Sig nature ABO & RH A Positive LAB Comment: Performed at [facility] Laboratory [facility] Blood Bank [address] [place] [id number] Toll Free: [phone] CLIA No. [id number] IAT Negative LAB Comment: Performed at [facility] Laboratory [facility] Blood Bank [address] [place] [id number] Toll Free: [phone] CLIA No. [id number] Specimen Blood - VENOUS Performing Organization Address City/State/Zipcode Phone Number BLD LAB documented in this encounter Visit Diagnoses Diagnosis Syncope, unspecified syncope type - Prim jessenia documented in this encounter Insurance Payer Benefit Plan / Subscriber ID Effective Dates Phone Addre ss Type Group MEDICARE MEDICARE PART [id number] 2020-Roddy [phone] [facility] Medicare A & B t 2 [id number] KAVIN LOMBARDI [id number] (Work) documented as of this encounter"
--- OUTSIDE RECORDS SUMMARY | 2020-05-17 07:08 | XMS REPORT | Summary of Care ---
:1955 Author Organization [facility] - Health Address [address] [place] [address] Care Team Providers Name Role Phone Ra Carpio Primary Care Provider Raegan Yadav DO Dry House Attendant Encounter Details Date Type Department Care Team Description 05/03/2020 Orders Only [facility] Doctor Unassigned, No [address] [facility] [place] [address] [address] [place] [address] Allergies Active Allergy Reactions Severity Noted Date Comments Ftifkmtnonzkr-Fv-Anvjhyfxlyl Hallucinations 08/18/2019 Spironolactone Other - See comments [...] neuropathy, Ischemic cardiomyopathy, Coronary artery disease involving nikolai coronary artery of nikolai heart without angina pectoris, Systolic congestive heart [...] Added automatically from request for nick guallpa [id number] Dysphagia, unspecified type 03/25/2018 Overview: Added automatically from request for nick guallpa [id number] Atrial flutter 10/15/2017 Chronic diastolic congestive heart failure 10/14/2017 HTN (hypertension) 10/14/2017 HLD (hyperlipidemia) 10/14/2017 Type 2 diabetes mellitus without complication 10/15/19 18 Pneumonia 10/13/2017 NSTEMI (non-ST elevated myocardial infarction) 018 History of DC (myocardial infarction) 09/12/2017 Foreign body in foot, [...] of school you have High school gra g[employer]rie[employer]ate 09/29/2019 completed or the highest degree you [...] Assigned at Date Recorded Not on file documented as of this encounter Last Filed Vital Signs Not on filedocumented in this encounter Plan of Treatment Health [...] I will submit an application to the [facility] Indigent Program. I will complete CASEBOOK application. documented as of this encounter Implants Implanted Type Area Area Relief Pilot Device Identifier Shelf Exp iration Model / Date Serial / L ot Hip HIP Left Knee Screws documented as of this encounter Procedures Procedure Name Priority Date/Time Associated Diagnosis Comme nts CONSENT/REFUSAL FOR Routine 05/03/2020 1:25 PM CDT DIAGNOSIS AND TREATMENT documented in this encounter Results Not on filedocumented in this encounter
[2020-05-17 07:58] LABS: Absolute Lymphocytes (CBC) 0.8 K/uL (0.7-4.9); Basophils % 0.3 % (0-1.3); Hematocrit 24.9 % (39.6-49.0); Lymphocytes % 5.7 % (15.3-44.8); MPV 10.6 fL (7.6-11.3)
[2020-05-17] MEDS ORDERED: NA CHLORIDE 0.9% 500 ML ONE (08:04)
[2020-05-17] MEDS ORDERED: ONDANSETRON 4 MG/2 ML VIAL ONE (08:04)
[2020-05-17] MEDS ORDERED: PROMETHAZINE INJ 25 MG/ML AMP ONE (08:14)
[2020-05-17 08:34] LABS: Albumin 3.1 g/dL (3.4-5.0); Anisocytosis 1+; Bilirubin Direct 0.2 mg/dL (0-0.2); Bilirubin Total 0.9 mg/dL (0.2-1.0); Blood Morphology Comment NOTED (NOT SEEN); Hypochromasia 1+; Ovalocytes 1+; Platelet Estimate ADEQ; Poikilocytosis 1+; Potassium 3.7 mmol/L (3.5-5.1); Protein, Total 6.4 g/dL (6.4-8.2); Troponin (Emerg Dept Use Only) 0.04 ng/mL (0.0-0.045)
--- NOTE | 2020-05-17 08:42 | RAD REPORT ---
EXAM DESCRIPTION: CT - Head C Spine Cap Wo Con - 05/17/2020 8:12 am TECHNIQUE: Computed axial tomography of the head and cervical spine was obtained. Coronal and sagitt al reconstruction was performed Computed axial tomography of the chest, abdomen and pelvis was obtained. Contrast was not requested. All CT scans are performed using dose optimization technique as appropriate and may include automated exposure control or mA/KV adjustment according to patient size. CLINICAL HISTORY: Head and neck injury with chest and abdominal pain status post fall COMPARISON: CT chest 2018 FINDINGS: An intracranial bleed is not seen. Low-density within the right internal capsule/basal ganglia has th e appearance of an old lacunar infarction. 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 The ventricles are normal in caliber. An extra-axial fluid collection is not noted. . Opacification of the left mastoid. This may indicate mastoiditis and should be correlated clinically. A cervical fracture is not seen. No dislocation is noted. Spondylosis involves the cervical spine res ulting central and foraminal stenosis The evaluation of mediastinum, tiffany, vessels, solid organs and bowel are limited secondary to the lac k of contrast administration. A mediastinal hematoma is not noted. A pleural effusion is not seen. A lung contusion is not present. The liver,spleen, pancreas, adrenals,kidneys and bladder the do not demonstrate a traumatic injury Right renal cyst Mild acute compression fracture T12 vertebral body. Minimal retropulsion of fracture fragment into th e spinal canal. The vertebral body is approximately 87% normal height Mild acute compression fracture L3 vertebral body. Vertebral body is approximately 85% normal height Trace amount of free fluid within the pelvis IMPRESSION: 1. No acute intracranial abnormality is seen. 2. A cervical fracture is not visualized. If the patient continues have symptoms to suggest intracran ial/spinal cord pathology MRI be recommended 3. No traumatic abnormality involving the chest 4. Mild acute compression fractures T12 and L3 vertebral bodies
--- NOTE | 2020-05-17 08:44 | RAD REPORT ---
EXAM DESCRIPTION: RAD - Hand Left 2 View - 05/17/2020 8:19 am CLINICAL HISTORY: Left hand pain status post injury FINDINGS: An avulsion fracture involves the fifth terminal tuft. Age is indeterminate should be dereje elated clinically 7 millimeter curvilinear metallic foreign body is present adjacent to the fourth metacarpal head Dorsal soft tissue laceration A limited two-view series was obtained
--- NOTE | 2020-05-17 09:02 | RAD REPORT ---
EXAM DESCRIPTION: Roger Single View05/17/2020 8:19 am CLINICAL HISTORY: Chest pain COMPARISON: July 2019 FINDINGS: The lungs appear clear of acute infiltrate. The heart is mildly enlarged. Postsurgical changes involve the chest. IMPRESSION: No acute abnormalities displayed
[2020-05-17] MEDS ORDERED: METOCLOPRAMIDE 10 MG/2mL INJ ONE (11:01)
[2020-05-17] MEDS ORDERED: NA CHLORIDE 0.9% 100 ML IV ONE (11:01)
[2020-05-17] MEDS ORDERED: PANTOPRAZOLE 40 MG INJ ONE (11:13)
[2020-05-17] MEDS ORDERED: PANTOPRAZOLE INJ 80 MG in NA CHLORIDE 0.9% 250 ML IV ONE (11:15)
--- NOTE | 2020-05-17 11:37 | ER ---
Nurse's Notes [facility] Name: Mumtaz Anderson Age: 65 yrs Sex: Male : 1955 Arrival Date: 05/17/2020 Time: 07:12 Bed 15 Private MD: Diagnosis: Dehydration;Wedge compression fracture of third lumbar vertebra;Wedge compression fracture of T11-T12 vertebra;Hematemesis Presentation: 05/17 07:10 Chief complaint: EMS states: N/V/D started last night, pt fell at 0430 this morning, jl7 unsure if he had LOC, c/o back and neck pain, small skin tear noted to left hand. Care prior to arrival: Medication(s) given: zofran 4 mg, 15 mg ketamine IVP IV initiated. 20 GA, in the left forearm. Mechanism of Injury: Fall from standing position. Trauma event details: Injury occurred in the [facility], Injury occurred: at home. Injury occurred: May 17, 2020 Injury occurred at: 04:30. 07:10 Acuity: VIDAL 2 jl7 07:10 Method Of Arrival: EMS: [facility] jl7 08:13 Coronavirus screen: Client denies travel out of the [place] in the last 14 days. At this jl7 time, the client does not indicate any symptoms associated with coronavirus-19. Ebola Screen: No symptoms or risks identified at this time. Initial Sepsis Screen: Does the patient meet any 2 criteria? No. Patient's initial sepsis screen is negative. Does the patient have a suspected source of infection? No. Patient's initial sepsis screen is negative. Risk Assessment: Do you want to hurt yourself or someone else? Patient reports no desire to harm self or others. Onset of symptoms was May 16, 2020. Transition of care: patient was not received from another setting of care. Trauma Activation: Alert Physician: ED Physician; Name: Deandre; Notified At: 07:30; Arrived At: 07:30 Physician: General Surgeon; Name: ; Notified At: 07:30; Arrived At: Physician: Radiology; Name: Leah; Notified At: 07:30; Arrived At: 07:32 Physician: Respiratory; Name: ; Notified At: 07:30; Arrived At: Physician: Lab; Name: ; Notified At: 07:30; Arrived At: Historical: - Allergies: 08:20 Nexium D; jl7 - Home Meds: 08:20 aspirin 81 mg Oral chew [Active]; atorvastatin 80 mg oral tab 1 tab once daily jl7 [Active]; clopidogrel 75 mg oral tab 1 tab once daily [Active]; escitalopram oxalate 20 mg oral tab 1 tab once daily [Active]; ferrous sulfate 325 mg (65 mg iron) Oral tab three times a day [Active]; Lasix 40 mg Oral tab 1 tab once daily [Active]; Lactobacillus acidophilus-pectin oral oral [Active]; metformin 500 mg Oral tab 1 tab 2 times per day [Active]; Toprol XL 50 mg Oral Tb24 1 tab once daily [Active]; Novolin 70/30 [place] Sub-Q [Active]; - PMHx: 08:20 CAD; COPD; Diabetes - IDDM; Hypertension; Myocardial infarction; CHF; Seizures; Anemia; jl7 - PSHx: 08:20 Knee surgery; left hip; foot; hand; Heart stents; CABG; jl7 - Immunization history:: Adult Immunizations unknown. - Social history:: Smoking status: Patient/guardian denies using tobacco, Stopped _ months ago 6. - Immunization history: Last tetanus immunization:. - Family history:: not pertinent. - Hospitalizations: : No recent hospitalization is reported. Screenin:30 Abuse screen: Denies threats or abuse. Denies injuries from another. Tuberculosis jl7 screening: No symptoms or risk factors identified. 08:29 Nutritional screening: No deficits noted. Fall Risk Fall in past 12 months (25 points). jl7 Secondary diagnosis (15 points) seizures, IV access (20 points). Ambulatory Aid- None/Bed Rest/Nurse Assist (0 pts). Gait- Weak (10 pts.). Mental Status- Oriented to own ability (0 pts). Total Walter Fall Scale indicates High Risk Score (45 or more points). Fall prevention measures have been instituted. Side Rails Up X 2 Placed Close to Nursing Station Frequent Obs/Assessments Occuring Family Present and informed to notify staff if the need to leave the bedside As available patient and family educated on Fall Prevention Program and Strategies. Primary Survey: 07:30 NO uncontrolled hemorrhage observed. Breathing/Chest: Respiratory pattern: tachypnea, jl7 Respiratory effort: spontaneous, unlabored, Chest inspection: symmetrical rise and fall of the chest. Circulation: Pulses: palpable right radial artery and left radial artery. Skin color: pale, Skin temperature: warm. Disability Alert. Exposure/Environment: There is no evidence of uncontrolled external bleeding. Obvious injury(ies) are noted at this time: skin tear to left hand A warming method has been applied: A warm blanket has been provided to the patient. 08:00 Reassessment Breathing/Chest Respiratory pattern Regular Respiratory effort Spontaneous jl7 Unlabored Chest inspection Symmetrical. Assessment: 07:30 General: Appears in no apparent distress. uncomfortable, Behavior is calm, cooperative, jl7 appropriate for age. Pain: Complains of pain in back, neck, right lower quadrant and left lower quadrant Pain currently is 8 out of 10 on a pain scale. Neuro: Level of Consciousness is awake, alert, obeys commands, Oriented to person, place, time, situation. Cardiovascular: Patient's skin is warm and dry. Respiratory: Reports cough that is productive, Airway is patent Respiratory effort is even, unlabored, Respiratory pattern is symmetrical, tachypnea. GI: Abdomen is non-distended, Stools are reported to be diarrhea. Last BM at 07:40. Reports diarrhea, nausea, vomiting. Derm: Skin is dry, Skin is pale, Skin temperature is warm. 09:00 Reassessment: Patient appears in no apparent distress at this time. No changes from jl7 previously documented assessment. Patient and/or family updated on plan of care and expected duration. Pain level reassessed. Patient is alert, oriented x 3, equal unlabored respirations, skin warm/dry/pink. 10:00 Reassessment: Skin tear on left hand cleaned and dressed with non-stick gauze, jl7 antibiotic ointment and tegaderm. 10:54 Reassessment: Coffee ground emesis noted in emesis bag, ERD notified, see MAR for jl7 orders. 12:15 Reassessment: ERD notified of BP, VO to continue to monitor due to vomiting and jl7 dehydration. 13:47 Reassessment: Patient appears in no apparent distress at this time. No changes from jl7 previously documented assessment. Patient and/or family updated on plan of care and expected duration. Pain level reassessed. Patient is alert, oriented x 3, equal unlabored respirations, skin warm/dry/pink. Awaiting bed assignment. 15:10 Reassessment: Attempted to call report, nurse unavailble. [facility] Vital Signs: 07:30 BP 191 / 78; Pulse 66; Resp 24; Temp 98.2; Pulse Ox 100% ; Weight 72.57 kg; Pain 8/10; jl7 08:00 BP 190 / 76; Pulse 66; Resp 20; Pulse Ox 100% ; jl7 08:24 BP 192 / 67; Pulse 70; Resp 19 S; Pulse Ox 98% on R/A; 7 09:32 BP 183 / 74; Pulse 69; Resp 20; Pulse Ox 98% ; 7 11:00 BP 184 / 83; Pulse 77; Resp 20; Pulse Ox 100% ; 7 12:00 BP 186 / 85; Pulse 75; Resp 19; Pulse Ox 100% ; 7 12:27 BP 195 / 71; Pulse 78; Resp 17; Pulse Ox 100% ; 7 13:00 BP 173 / 59; Pulse 81; Resp 18; Pulse Ox 100% ; 7 13:44 BP 185 / 73; Pulse 85; Resp 17; Pulse Ox 100% ; 7 14:30 BP 191 / 75; Pulse 83; Resp 20; Pulse Ox 100% ; 7 15:09 Temp 98.1(O); jl7 [place] Coma Score: 07:30 Eye Response: spontaneous(4). Verbal Response: oriented(5). Motor Response: obeys jl7 commands(6). Total: 15. 08:00 Eye Response: spontaneous(4). Verbal Response: oriented(5). Motor Response: obeys jl7 commands(6). Total: 15. 08:24 Eye Response: spontaneous(4). Verbal Response: oriented(5). Motor Response: obeys jl7 commands(6). Total: 15. 09:32 Eye Response: spontaneous(4). Verbal Response: oriented(5). Motor Response: obeys jl7 commands(6). Total: 15. 11:00 Eye Response: spontaneous(4). Verbal Response: oriented(5). Motor Response: obeys jl7 commands(6). Total: 15. 12:00 Eye Response: spontaneous(4). Verbal Response: oriented(5). Motor Response: obeys jl7 commands(6). Total: 15. 12:27 Eye Response: spontaneous(4). Verbal Response: oriented(5). Motor Response: obeys jl7 commands(6). Total: 15. 13:00 Eye Response: spontaneous(4). Verbal Response: oriented(5). Motor Response: obeys jl7 commands(6). Total: 15. 13:45 Eye Response: spontaneous(4). Verbal Response: oriented(5). Motor Response: obeys jl7 commands(6). Total: 15. 14:30 Eye Response: spontaneous(4). Verbal Response: oriented(5). Motor Response: obeys jl7 commands(6). Total: 15. Trauma Score (Adult): 07:30 Eye Response: spontaneous(1); Verbal Response: oriented(1); Motor Response: obeys jl7 commands(2); Systolic BP: > 89 mm Hg(4); Respiratory Rate: 10 to 29 per min(4); Yolanda Score: 15; Trauma Score: 12 ED Course: 07:12 Patient arrived in ED. cl3 07:16 Reinaldo Carrera MD is Attending Physician. rn 07:28 Nuzhat العلي RN is Primary Nurse. jl7 07:30 Patient has correct armband on for positive identification. Bed in low position. Call jl7 light in reach. Side rails up X2. 07:30 monitoring specialist on. Pulse ox on. NIBP on. jl7 07:30 Patient maintains SpO2 saturation greater than 95% on room air. Thermoregulation: warm jl7 blanket given to patient. 07:30 Maintain EMS IV. Dressing intact. Good blood return noted. Site clean \T\ dry. Gauge \T\ jl 7 site: 20 left FA. 07:45 Initial lab(s) drawn, by me, sent to lab. EKG done, by ED staff, reviewed by Reinaldo Carrera MD. 08:08 Triage completed. jl7 08:12 Head C Spine Cap Wo Con In Process Unspecified. EDMS 08:19 XRAY Hand LEFT 2 View In Process Unspecified. EDMS 08:19 XRAY Chest (1 view) In Process Unspecified. EDMS 08:20 Arm band placed on right wrist. jl7 11:00 Inserted saline lock: 20 gauge in right hand, using aseptic technique. jl7 11:36 Pritesh Seth MD is Hospitalizing Provider. rn 11:49 T\T\S collected, blood band applied to patient. jl7 11:49 Flu and/or RSV swab sent to lab. COVID-19 swab sent to lab. jl7 12:26 Flu Sent. jl7 12:26 Type And Screen Sent. jl7 13:49 No provider procedures requiring assistance completed. Patient admitted, IV remains in jl7 place. intact, No redness/swelling at site. Administered Medications: 07:55 Drug: Zofran (Ondansetron) 4 mg Route: IVP; Site: left forearm; jl7 08:15 Follow up: Response: No adverse reaction; Nausea unchanged jl7 07:55 Drug: NS 0.9% 500 ml Route: IV; Rate: bolus; Site: left forearm; jl7 08:45 Follow up: IV Status: Completed infusion; IV Intake: 500ml jl7 08:03 Drug: Phenergan 12.5 mg Route: IVP; Site: left forearm; jl7 08:30 Follow up: Response: Nausea unchanged jl7 10:55 Drug: Reglan 10 mg Route: IVP; Site: left forearm; jl7 11:30 Follow up: Response: No adverse reaction; Nausea unchanged jl7 11:05 Drug: ProTONIX 40 mg Route: IVP; Site: left forearm; jl7 11:29 Follow up: Response: No adverse reaction jl7 11:27 Drug: ProTONIX 8 mg/hr Route: IV; Rate: 25 ml/hr; Site: left forearm; jl7 13:48 Follow up: IV Status: Infusion continued upon admission jl7 Intake: 08:45 IV: 500ml; Total: 500ml. jl7 Outcome: 11:37 Decision to Hospitalize by Provider. rn 15:44 Admitted to Med/surg accompanied by tech, family with patient, via stretcher, room 224, jl7 with chart, Report called to ANDRADE Barlow 15:44 Condition: stable 15:44 Discharge instructions given to patient, family, Instructed on the need for admit, Demonstrated understanding of instructions. 15:55 Patient left the ED. jl7 Signatures: Dispatcher [employer] EDMS Reinaldo Carrera MD MD rn Leal, Jahala, RN RN jl7 Daryl Richey cl3
--- NOTE | 2020-05-17 11:38 | EDPHYS ---
Physician Documentation [facility] Name: Mumtaz Anderson Age: 65 yrs Sex: Male : 1955 Arrival Date: 05/17/2020 Time: 07:12 Bed 15 Private MD: ED Physician Reinaldo Carrera HPI: 05/17 11:31 This 65 yrs old Male presents to ER via EMS with complaints of Fall Injury. rn 11:31 Details of fall: The patient fell from an upright position, while standing, while rn walking. Onset: The symptoms/episode began/occurred just prior to arrival. Associated injuries: The patient sustained neck injury, upper back injury, injury to the low back. Severity of symptoms: At their worst the symptoms were moderate, in the emergency department the symptoms are unchanged. The patient has not experienced similar symptoms in the past. Reports a few days of nausea/vomiting/diarrhea, reports not able to keep anything down, no fever, fell today prior to arrival, reports left hand, back, neck, and head pain. Does not think lost consciousness. Reports may have small amount of blood in vomit. NO hx of obstruction.. Historical: - Allergies: 08:20 Nexium D; jl7 - Home Meds: 08:20 aspirin 81 mg Oral chew [Active]; atorvastatin 80 mg oral tab 1 tab once daily jl7 [Active]; clopidogrel 75 mg oral tab 1 tab once daily [Active]; escitalopram oxalate 20 mg oral tab 1 tab once daily [Active]; ferrous sulfate 325 mg (65 mg iron) Oral tab three times a day [Active]; Lasix 40 mg Oral tab 1 tab once daily [Active]; Lactobacillus acidophilus-pectin oral oral [Active]; metformin 500 mg Oral tab 1 tab 2 times per day [Active]; Toprol XL 50 mg Oral Tb24 1 tab once daily [Active]; Novolin 70/30 [place] Sub-Q [Active]; - PMHx: 08:20 CAD; COPD; Diabetes - IDDM; Hypertension; Myocardial infarction; CHF; Seizures; Anemia; jl7 - PSHx: 08:20 Knee surgery; left hip; foot; hand; Heart stents; CABG; jl7 - Immunization history:: Adult Immunizations unknown. - Social history:: Smoking status: Patient/guardian denies using tobacco, Stopped _ months ago 6. - Immunization history: Last tetanus immunization:. - Family history:: not pertinent. - Hospitalizations: : No recent hospitalization is reported. ROS: 11:31 Constitutional: Negative for fever, chills, and weight loss, Eyes: Negative for injury, rn pain, redness, and discharge, Neck: + injury and pain Cardiovascular: Negative for chest pain, palpitations, and edema, Respiratory: + sob Abdomen/GI: + abd pain with nausea/vomiting/diarrhea/hematemesis. Back: + mid back pain and injury MS/Extremity: + left hand pain Skin: Negative for injury, rash, and discoloration, Neuro: + generalized weakness Exam: 11:31 Constitutional: Thin male, pale, tachypneic Head/Face: Normocephalic, atraumatic. 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 Cardiovascular: Tachycardic, regular Respiratory: Mild tachypnea with crackles left base Abdomen/GI: soft, mild periumbilical tenderness, no distension, no rebound Back: + midline lower thoracic and lumbar perispinal tenderness MS/ Extremity: Pulses equal, no cyanosis. Neurovascular intact. Full, normal range of motion. Equal circumference. + small skintear left dorsum of hand Neuro: Awake and alert, GCS 15, oriented to person, place, time, and situation. Cranial nerves II-XII grossly intact. Motor strength 4/5 in all extremities. Sensory grossly intact. 11:37 ECG was reviewed by the Attending Physician. rn Vital Signs: 07:30 BP 191 / 78; Pulse 66; Resp 24; Temp 98.2; Pulse Ox 100% ; Weight 72.57 kg; Pain 8/10; jl7 08:00 BP 190 / 76; Pulse 66; Resp 20; Pulse Ox 100% ; jl7 08:24 BP 192 / 67; Pulse 70; Resp 19 S; Pulse Ox 98% on R/A; jl7 09:32 BP 183 / 74; Pulse 69; Resp 20; Pulse Ox 98% ; jl7 11:00 BP 184 / 83; Pulse 77; Resp 20; Pulse Ox 100% ; jl7 12:00 BP 186 / 85; Pulse 75; Resp 19; Pulse Ox 100% ; jl7 12:27 BP 195 / 71; Pulse 78; Resp 17; Pulse Ox 100% ; jl7 13:00 BP 173 / 59; Pulse 81; Resp 18; Pulse Ox 100% ; jl7 13:44 BP 185 / 73; Pulse 85; Resp 17; Pulse Ox 100% ; jl7 14:30 BP 191 / 75; Pulse 83; Resp 20; Pulse Ox 100% ; jl7 15:09 Temp 98.1(O); jl7 [place] Coma Score: 07:30 Eye Response: spontaneous(4). Verbal Response: oriented(5). Motor Response: obeys jl7 commands(6). Total: 15. 08:00 Eye Response: spontaneous(4). Verbal Response: oriented(5). Motor Response: obeys jl7 commands(6). Total: 15. 08:24 Eye Response: spontaneous(4). Verbal Response: oriented(5). Motor Response: obeys jl7 commands(6). Total: 15. 09:32 Eye Response: spontaneous(4). Verbal Response: oriented(5). Motor Response: obeys jl7 commands(6). Total: 15. 11:00 Eye Response: spontaneous(4). Verbal Response: oriented(5). Motor Response: obeys jl7 commands(6). Total: 15. 12:00 Eye Response: spontaneous(4). Verbal Response: oriented(5). Motor Response: obeys jl7 commands(6). Total: 15. 12:27 Eye Response: spontaneous(4). Verbal Response: oriented(5). Motor Response: obeys jl7 commands(6). Total: 15. 13:00 Eye Response: spontaneous(4). Verbal Response: oriented(5). Motor Response: obeys jl7 commands(6). Total: 15. 13:45 Eye Response: spontaneous(4). Verbal Response: oriented(5). Motor Response: obeys jl7 commands(6). Total: 15. 14:30 Eye Response: spontaneous(4). Verbal Response: oriented(5). Motor Response: obeys jl7 commands(6). Total: 15. Trauma Score (Adult): 07:30 Eye Response: spontaneous(1); Verbal Response: oriented(1); Motor Response: obeys jl7 commands(2); Systolic BP: > 89 mm Hg(4); Respiratory Rate: 10 to 29 per min(4); Yolanda Score: 15; Trauma Score: 12 MDM: 07:16 Patient medically screened. 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 Data reviewed: vital signs, nurses notes, lab test result(s), EKG, radiologic studies, and as a result, I will admit patient. Counseling: I had a detailed discussion with the patient and/or guardian regarding: the historical points, exam findings, and any diagnostic results supporting the discharge/admit diagnosis, lab results, radiology results, the need for further work-up and treatment in the hospital. Response to treatment: the patient's symptoms have mildly improved after treatment, and as a result, I will admit patient. Admission orders: after a detailed discussion of the patient's condition and case, the admit orders are written by me. ED course: Pt with dehydration, non-operative spinal compression fractures x 2, possible UGIB, started on protonix drip, admitted to [facility]. . 05/17 07:19 Order name: Basic Metabolic Panel; Complete Time: 09:17 05/17 07:19 Order name: CBC with Diff; Complete Time: 09: 05/17 07:19 Order name: Hepatic Function; Complete Time: 09:17 05/17 07:19 Order name: Lipase; Complete Time: 09:17 05/17 07:29 Order name: Protime (+inr) 05/17 07:29 Order name: Ptt, Activated; Complete Time: 09:17 05/17 07:29 Order name: BNP; Complete Time: 09:17 05/17 07:29 Order name: Protime (+INR); Complete Time: 09:17 EDMN 05/17 08:05 Order name: Add On-Lab bd 05/17 08:07 Order name: Troponin (Emerg Dept Use Only); Complete Time: 09:17 EDMN 05/17 08:34 Order name: Manual Differential; Complete Time: 09:17 EDMN 05/17 08:43 Order name: CREATININE WHOLE BLOOD; Complete Time: 09:17 EDMN 05/17 11:01 Order name: Flu jl7 05/17 11:38 Order name: Type And Screen 7 05/17 12:57 Order name: NT PRO-BNP EDMN 05/17 12:57 Order name: CBC with Automated Diff [facility] 05/17 12:57 Order name: CBC with Automated Diff EDMN 05/17 12:57 Order name: Comprehensive Metabolic Panel EDMN 05/17 12:57 Order name: Comprehensive Metabolic Panel EDMN 05/17 12:57 Order name: Magnesium EDMN 05/17 12:57 Order name: Magnesium EDMN 05/17 12:57 Order name: Phosphorus EDMN 05/17 12:57 Order name: Phosphorus EDMN 05/17 12:57 Order name: Troponin I EDMN 05/17 12:57 Order name: Troponin I EDMN 05/17 12:57 Order name: Troponin I EDMN 05/17 12:58 Order name: T4 Free EDMN 05/17 12:58 Order name: T4 Free EDMN 05/17 12:58 Order name: Thyroid Stimulating Hormone EDMN 05/17 07:19 Order name: IV Saline Lock; Complete Time: 08:03 rn 05/17 07:19 Order name: Labs collected and sent; Complete Time: 08:03 rn 05/17 07:29 Order name: XRAY Hand LEFT 2 View; Complete Time: 09:17 rn 05/17 07:29 Order name: XRAY Chest (1 view); Complete Time: 09:17 05/17 08:04 Order name: EKG; Complete Time: 08:04 [facility] 05/17 08:04 Order name: EKG - Nurse/Tech; Complete Time: 08:04 [facility] 05/17 08:09 Order name: Head C Spine Cap Wo Con; Complete Time: 09:17 [facility] 05/17 12:57 Order name: CONS Physician Consult EDMN 05/17 12:57 Order name: Heart Healthy EDMN 05/17 12:57 Order name: Echo with Doppler EDMN 05/17 12:57 Order name: EKG Electrocardiogram EDMN 05/17 12:57 Order name: EKG Electrocardiogram EDMN 05/17 12:58 Order name: Thyroid Stimulating Hormone EDMN 05/17 13:09 Order name: SARS-COV-2 RT PCR EDMN EC:37 Rate is 68 beats/min. Rhythm is regular. QRS [place] is Normal. RI interval is normal. QRS rn interval is prolonged at 148 msec. QT interval is normal. No Q waves. T waves are Normal. No ST changes noted. Clinical impression: NSR w/ Non-specific ST/T Changes. Interpreted by me. Reviewed by me. Administered Medications: 07:55 Drug: Zofran (Ondansetron) 4 mg Route: IVP; Site: left forearm; jl7 08:15 Follow up: Response: No adverse reaction; Nausea unchanged jl7 07:55 Drug: NS 0.9% 500 ml Route: IV; Rate: bolus; Site: left forearm; jl7 08:45 Follow up: IV Status: Completed infusion; IV Intake: 500ml jl7 08:03 Drug: Phenergan 12.5 mg Route: IVP; Site: left forearm; jl7 08:30 Follow up: Response: Nausea unchanged jl7 10:55 Drug: Reglan 10 mg Route: IVP; Site: left forearm; jl7 11:30 Follow up: Response: No adverse reaction; Nausea unchanged jl7 11:05 Drug: ProTONIX 40 mg Route: IVP; Site: left forearm; jl7 11:29 Follow up: Response: No adverse reaction jl7 11:27 Drug: ProTONIX 8 mg/hr Route: IV; Rate: 25 ml/hr; Site: left forearm; jl7 13:48 Follow up: IV Status: Infusion continued upon admission jl7 Disposition: 05/17/20 11:37 Hospitalization ordered by Pritesh Seth for Inpatient Admission. Preliminary diagnosis are Dehydration, Wedge compression fracture of third lumbar vertebra, Wedge compression fracture of T11-T12 vertebra, Hematemesis. - Bed requested for Telemetry/MedSurg (Inpatient). - Status is Inpatient Admission. jl7 - Condition is Stable. - Problem is new. - Symptoms have improved. Signatures: Dispatcher [employer] EDMS Reinaldo Carrera MD MD rn Calderon, Audri RN RN aa5 Nuzhat العلي RN RN jl7 Corrections: (The following items were deleted from the chart) 07:38 07:20 Abdomen Pelvis W Con+CT.RAD.BRZ ordered. EDMS EDMS 08:09 07:29 Head C Spine CAP W Con+CT.RAD.BRZ ordered. EDMS EDMS 11:38 11:37 Rate is 68 beats/min. Rhythm is regular. QRS [place] is Normal. RI interval is rn normal. QRS interval is normal. QT interval is normal. No Q waves. T waves are Normal. No ST changes noted. Clinical impression: NSR w/ Non-specific ST/T Changes. Interpreted by me. Reviewed by me. rn 12:11 11:01 CORONAVIRUS+MR.LAB.BRZ ordered. EDMS EDMS 14:21 11:37 Hospitalization Ordered by Pritesh Seth MD for Inpatient Admission. Preliminary aa5 diagnosis is Dehydration; Wedge compression fracture of third lumbar vertebra; Wedge compression fracture of T11-T12 vertebra; Hematemesis. Bed requested for Telemetry/MedSurg (Inpatient). Status is Inpatient Admission. Condition is Stable. Problem is new. Symptoms have improved. rn 15:55 14:21 05/17/2020 11:37 Hospitalization Ordered by Pritesh Seth MD for Inpatient jl7 Admission. Preliminary diagnosis is Dehydration; Wedge compression fracture of third lumbar vertebra; Wedge compression fracture of T11-T12 vertebra; Hematemesis. Bed requested for Telemetry/MedSurg (Inpatient). Status is Inpatient Admission. Condition is Stable. Problem is new. Symptoms have improved. aa5
[2020-05-17 16:55] VITALS: BMI 3124.4
[2020-05-17] MEDS ORDERED: FUROSEMIDE 40 MG TABLET PO SCH (17:00)
[2020-05-17] MEDS: ACETAMINOPHEN 500 MG TAB PO PRN (17:49)
[2020-05-17] MEDS ORDERED: PNEUMOCOCCAL VACCINE 0.5 ML IMVAC ONE (18:00)
[2020-05-17] MEDS: PANTOPRAZOLE INJ 80 MG in NA CHLORIDE 0.9% 250 ML IV SCH (18:00)
[2020-05-17] MEDS ORDERED: INFLUENZA VACCINE (for 3y+) 0.5 ML DOSE IMVAC ONE (18:00)
[2020-05-17] MEDS: METOPROLOL TAR 25 MG TAB PO SCH ×2 (18:00→22:02)
[2020-05-17] MEDS: ONDANSETRON 4 MG/2 ML VIAL IV PRN (18:04)
[2020-05-17] MEDS: HYDROMORPHONE HCL 0.5 MG/0.5 ML INJ IV PRN (19:42)
[2020-05-17 19:56] LABS: Hematocrit 22.7 % (39.6-49.0)
[2020-05-17] MEDS: FUROSEMIDE 20 MG/ 2ML VIAL IV SCH (20:00)
[2020-05-17] MEDS ORDERED: DIPHENHYDRAMINE 25 MG TAB/CAP PO ONE (20:58)
[2020-05-17] MEDS ORDERED: ACETAMINOPHEN 325 MG TABLET PO ONE (20:59)
[2020-05-17] MEDS ORDERED: METOPROLOL TAR 25 MG TAB PO SCH (21:00)
[2020-05-17] MEDS ORDERED: POTASSIUM CL SA 10 MEQ TAB PO ONE (21:00)
[2020-05-17] MEDS ORDERED: GLUCAGON 1 MG/VIAL IM PRN (21:02)
[2020-05-17] MEDS ORDERED: D50W 25 GM/50 ML SYRINGE IV PRN (21:02)
[2020-05-17] MEDS: INSULIN -REGULAR HUMAN 50 UNIT/0.5 ML ML SQ SCH ×2 (21:56→21:58)
[2020-05-17] MEDS ORDERED: NA CHLORIDE 0.9% 250 ML ONE (22:26)
[2020-05-17] MEDS ORDERED: FUROSEMIDE 40 MG/4 ML VIAL IV ONE (23:00)
[2020-05-18] MEDS: PANTOPRAZOLE INJ 80 MG in NA CHLORIDE 0.9% 250 ML IV SCH ×3 (00:03→15:33)
[2020-05-18] MEDS: FUROSEMIDE 20 MG/ 2ML VIAL IV SCH (00:50)
[2020-05-18] MEDS: HYDROMORPHONE HCL 0.5 MG/0.5 ML INJ IV PRN ×4 (02:18→17:01)
[2020-05-18] MEDS: ONDANSETRON 4 MG/2 ML VIAL IV PRN ×3 (02:18→19:24)
[2020-05-18 02:20] LABS: Hematocrit 27.3 % (39.6-49.0)
[2020-05-18 05:55] LABS: Basophils % 0.2 % (0-1.3); Hematocrit 25.8 % (39.6-49.0); Lymphocytes % 7.5 % (15.3-44.8); MPV 10.8 fL (7.6-11.3); RBC Red Blood Cell Count 3.85 M/uL (4.33-5.43)
[2020-05-18] MEDS: METOPROLOL TAR 25 MG TAB PO SCH (05:55)
[2020-05-18 06:08] LABS: Bilirubin Total 0.7 mg/dL (0.2-1.0); Magnesium 2.1 mg/dL (1.8-2.4); Phosphorus 4.1 mg/dL (2.5-4.9); Potassium 4.1 mmol/L (3.5-5.1); Protein, Total 6.3 g/dL (6.4-8.2); Thyroid Stimulating Hormone 2.06 uIU/mL (0.360-3.740); Troponin I 0.13 ng/mL (0.0-0.045)
--- NOTE | 2020-05-18 07:18 | EKG ---
Test Date: 2020-05-17 Test Time: 07:34:39 Plant Protection Officer: JACQUE MEASUREMENT RESULTS: Intervals: Rate: 68 SD: 204 QRSD: 148 QT: 496 QTc: 527 [place]: P: 87 SD: 204 QRS: -29 T: -35 INTERPRETIVE STATEMENTS: Sinus rhythm with premature supraventricular complexes Nonspecific intraventricular block Abnormal ECG Compared to ECG 07/18/2019 04:26:27 Atrial premature complex(es) now present Left bundle-branch block no longer present Electronically Signed On 05-18-20 07:16:16 SOFTWARE TRAINER by Martin Reyes
[2020-05-18] MEDS: INSULIN -REGULAR HUMAN 50 UNIT/0.5 ML ML SQ SCH ×4 (07:30→20:48)
--- NOTE | 2020-05-18 07:48 | P.CNS ---
Date of Consult: 05/18/20 Reason for Consult: OSCAR/ CKD Requesting Physician: Pritesh Seth Chief Complaint: Fall injury History of Present Illness: 65 yo WM CKD presented to the ER following a fall injury at home in the setting of black emesis. 11:31 This 65 yrs old Male presents to ER via EMS with complaints of Fall Injury. rn 11:31 Details of fall: The patient fell from an upright position, while standing, while rn walking. Onset: The symptoms/episode began/occurred just prior to arrival. Associated injuries: The patient sustained neck injury, upper back injury, injury to the low back. Severity of symptoms: At their worst the symptoms were moderate, in the emergency department the symptoms are unchanged. The patient has not experienced similar symptoms in the past. Reports a few days of nausea/vomiting/diarrhea, reports not able to keep anything down, no fever, fell today prior to arrival, reports left hand, back, neck, and head pain. Does not think lost consciousness. Reports may have small amount of blood in vomit. NO hx of obstruction Allergies spironolactone Adverse Reaction (Verified 05/18/20 16:02) Anaphylaxis "nexia d" Allergy (Mild, Uncoded 04/04/19 00:26) Unknown Home medications list reviewed: Yes Home Medications: Atorvastatin Calcium [Lipitor] 80 mg PO BEDTIME 05/17/20 Clopidogrel Bisulfate [Plavix] 75 mg PO DAILY 05/17/20 Doxazosin [Cardura] 2 mg PO BEDTIME 05/17/20 Escitalopram [Lexapro] 20 mg PO DAILY 05/17/20 Ferrous Sulfate [Feosol] 325 mg PO BID 05/17/20 Furosemide [Lasix*] 40 mg PO BID 05/17/20 Insulin NPH Human Isophane [Novolin N] 10 unit SQ DAILY 05/17/20 Insulin Regular, Human [Novolin R] 8 unit SQ DAILY 05/17/20 Metformin HCl [Glucophage] 500 mg PO BIDWM 05/17/20 Metoprolol Succinate [Toprol Xl] 50 mg PO DAILY 05/17/20 Trazodone HCl [Desyrel] 100 mg PO BEDTIME 05/17/20 - Past Medical/Surgical History Diabetic: Yes -: Diabetes mellitus type 2, insulin-dependent -: CAD -: Hypertension -: Hyperlipidemia -: COPD -: Tobacco abuse -: Knee surgery -: I&D lower right buttock -: hiatal hernia repair -: I and D to the left foot -: 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 He lives with his son. - Family History Father Medical History: Heart disease, Hypertension, Lung disease, GI disease, Diabetes, Cancer, Other (see notes) Notes: parkinson's disease Mother Medical History: Heart disease, Hypertension, Diabetes, Cancer Sister Medical History: Cancer - Social History Smoking Status: Current every day smoker Alcohol use: No CD- Drugs: No Caffeine use: No Place of Residence: Home Physical Examination Temp Pulse Resp BP Pulse Ox 97.0 F 72 18 190/75 H 100 05/18/20 04:00 05/18/20 05:55 05/18/20 04:00 05/18/20 05:55 05/18/20 04:00 Laboratory Data (last 24 hrs) 05/17/20 07:47: PT 11.8, INR 1.00, APTT 26.8 05/17/20 07:47: WBC 14.5 H, Hgb 8.2 L, Hct 24.9 L, Plt Count 198 05/17/20 07:47: Sodium 142, Potassium 3.7, BUN 46 H, Creatinine 1.83 H, Glucose 150 H, Total Bilirubin 0.9, AST 33, ALT 44, Alkaline Phosphatase 67, Lipase 86 Imagings Data: EXAM DESCRIPTION: CT - Head C Spine Cap Wo Con - 05/17/2020 8:12 am TECHNIQUE: Computed axial tomography of the head and cervical spine was obtained. Coronal and sagittal reconstruction was performed Computed axial tomography of the chest, abdomen and pelvis was obtained. Contrast was not requested. All CT scans are performed using dose optimization technique as appropriate and may include automated exposure control or mA/KV adjustment according to patient size. CLINICAL HISTORY: Head and neck injury with chest and abdominal pain status post fall COMPARISON: CT chest 2018 FINDINGS: An intracranial bleed is not seen. Low-density within the right internal capsule/basal ganglia has the appearance of an old lacunar infarction. 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 The ventricles are normal in caliber. An extra-axial fluid collection is not noted. . Opacification of the left mastoid. This may indicate mastoiditis and should be correlated clinically. A cervical fracture is not seen. No dislocation is noted. Spondylosis involves the cervical spine resulting central and foraminal stenosis The evaluation of mediastinum, tiffany, vessels, solid organs and bowel are limited secondary to the lack of contrast administration. A mediastinal hematoma is not noted. A pleural effusion is not seen. A lung con tusion is not present. The liver,spleen, pancreas, adrenals,kidneys and bladder the do not demonstrate a traumatic injury Right renal cyst Mild acute compression fracture T12 vertebral body. Minimal retropulsion of fracture fragment into the spinal canal. The vertebral body is approximately 87% normal height Mild acute compression fracture L3 vertebral body. Vertebral body is approximately 85% normal height Trace amount of free fluid within the pelvis IMPRESSION: 1. No acute intracranial abnormality is seen. 2. A cervical fracture is not visualized. If the patient continues have symptoms to suggest intracranial/spinal cord pathology MRI be recommended 3. No traumatic abnormality involving the chest 4. Mild acute compression fractures T12 and L3 vertebral bodies EXAM DESCRIPTION: [facility] Single View05/17/2020 8:19 am CLINICAL HISTORY: Chest pain COMPARISON: July 2019 FINDINGS: The lungs appear clear of acute infiltrate. The heart is mildly enl arged. Postsurgical changes involve the chest. IMPRESSION: No acute abnormalities displayed Conclusions/Impression: A/ OSCAR in the setting of hypovolemia, worse. HTN uncontrolled DM II GI bleed. P/ Continue current POC and Medications Reduce Lasix BID. Continue metoprolol and start doxazosin. Follow up with GI today for EGD. Transfuse PRBC as needed. No NSAIDs. AM labs. Daily weight. Thank you kindly for the consultation.
[2020-05-18] MEDS ORDERED: DOXAZOSIN 2 MG TAB PO SCH (09:00)
[2020-05-18] MEDS: DOXAZOSIN 2 MG TAB PO SCH (10:31)
--- NOTE | 2020-05-18 11:34 | ECHO ---
HEIGHT: 6 ft 0 in WEIGHT: 160 lb 0 oz DATE OF STUDY: 05/18/[address]: Pritesh Seth MD 2-DIMENSIONAL: YES M.MODE: YES DOPPLER: YES COLOR FLOW: YES TDS: NO PORTABLE: NO DEFINITY: NO BUBBLE STUDY: NO DIAGNOSIS: FALL, BRADYCARDIA, HISTORY OF CONGESTIVE HEART FAILURE CARDIAC HISTORY: CATHERIZATION: YES SURGERY: YES PROSTHETIC VALVE: NO PACEMAKER: NO MEASUREMENTS (cm) DIASTOLIC (NORMALS) SYSTOLIC (NORMALS) IVSd 1.2 (0.6-1.2) LA Diam 3.7 (1.9-4.0) LVEF 47% LVIDd 5.5 (3.5-5.7) LVIDs 4.2 (2.0-3.5) %FS 24% LVPWd 1.3 (0.6-1.2) Ao Diam 3.3 (2.0-3.7) 2 DIMENSIONAL ASSESSMENT: RIGHT ATRIUM: NORMAL LEFT ATRIUM: NORMAL RIGHT VENTRICLE: NORMAL LEFT VENTRICLE: NORMAL SIZE TRICUSPID VALVE: NORMAL MITRAL VALVE: MITRAL ANNULAR CALCIFICATION PULMONIC VALVE: NORMAL AORTIC VALVE: NORMAL PERICARDIAL EFFUSION: NONE AORTIC ROOT: NORMAL LEFT VENTRICULAR WALL MOTION: MILD GLOBAL HYPOKINESIS. DOPPLER/COLOR FLOW: NORMAL COMMENTS: MILD GLOBAL HYPOKINESIS. LEFT VENTRICULAR EJECTION FRACTION 47%, MUCH IMPROVED SINCE 05/2019. NO EFFUSION. TECHNOLOGIST: Robert FROST
[2020-05-18] MEDS ORDERED: NA CHLORIDE 0.9% 1,000 ML ONE (12:20)
[2020-05-18] MEDS ORDERED: LIDOCAINE 1% MPF 5 ML VIAL ONE (12:20)
[2020-05-18] MEDS ORDERED: propofoL 200 MG/20 ML VIAL IV ONE (12:20)
--- NOTE | 2020-05-18 13:26 | ENDO RPT ---
[address], [address] EGD PROCEDURE REPORT EXAM DATE: 05/18/2020 PATIENT NAME: Mumtaz Anderson MR#: [id number] BIRTHDATE: 1955 ATTENDING: Po Modi Dr STATUS: inpatient - 7 HOGSHEAD PACKER: Mariah JARAMILLO and Ruby Jones RN INDICATIONS: The patient is a 65 yr old Male here for an EGD due to upper G.I. PROCEDURE PERFORMED: EGD with biopsy MEDICATIONS: Per Anesthesia. TOPICAL ANESTHETIC: none CONSENT: The patient understands the risks and benefits of the procedure and understands that these risks include, but are not limited to: sedation, allergic reaction, infection, perforation and/or bleeding. Alternative means of evaluation and treatment include, among others: physical exam, x-rays, and/or surgical intervention. The patient elects to proceed with this endoscopic procedure. DESCRIPTION OF PROCEDURE: During intra-op preparation period all mechanical medical equipment was checked for proper function. Hand hygiene and appropriate measures for infection prevention was taken. Procedure, possible complications, and alternatives including but not limited to the possibility of bleeding, perforation, tear, infection, sepsis, need for surgery, need for blood transfusion, and anesthesia related complications were explained to the patient. After the risks, benefits and alternatives of the procedure were thoroughly explained, Informed consent was verified, confirmed and timeout was successfully executed by the treatment team. The patient was placed in the left lateral position. The patient was anesthetized with topical anesthesia. Through the anesthetized oropharyngeal area, the scope was passed without any difficulty. The [id number] ([id number]) endoscope was introduced through the mouth and advanced to the second portion of the duodenum. Retroflexed views revealed a moderate sized hiatal hernia. The gastroscope was then slowly withdrawn and removed. A moderate sized hiatal hernia was found Mild gastritis was found in the antrum. Multiple biopsies were obtained and sent to pathology. Mild duodenitis was found in the bulb of the duodenum. No active bleeding nor stigmata of recent hemorrhage noted. ADVERSE EVENTS: There were no complications. IMPRESSIONS: 1. Moderate sized hiatal hernia 2. Mild gastritis in the antrum, s/p biopsies 3. Mild duodenitis in the bulb of the duodenum 4. No active bleeding nor stigmata of recent hemorrhage RECOMMENDATIONS: 1. await biopsy results 2. acid suppression therapy REPEAT EXAM: Po Modi Dr eSigned: Po Modi Dr 05/18/2020 1:25 PM cc: Pritesh Seth CPT CODES: ICD9 CODES: PATIENT NAME: Mumtaz AndersonLatesha MR#: [id number]
[2020-05-18] MEDS: PROMETHAZINE INJ 25 MG/ML AMP IV PRN ×2 (14:17→22:08)
[2020-05-18] MEDS: ENOXAPARIN 40 MG/0.4 ML SQ SCH (15:34)
--- NOTE | 2020-05-18 15:40 | P.HP ---
Certification for Inpatient Patient admitted to: Inpatient With expected LOS: >2 Midnights Patient will require the following post-hospital care: None Practitioner: I am a practitioner with admitting privileges, knowledge of patient current condition, hospital course, and medical plan of care. Services: Services provided to patient in accordance with Admission requirements found in Title 42 Section 412.3 of the Code of Federal Regulations Patient History Date of Service: 05/17/20 Reason for admission: Fall injury History of Present Illness: Patient is a 65-year-old woman who came to the hospital after falling. 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 His cardiac surgery with a four-vessel bypass. He had been doing poorly over the last few weeks and he was really weak and has gone to the emergency room at [facility]. While he was there it was found that he was anemic. The patient's family states that they did not give him a blood transfusion because they were worried that his heart would be able to tolerate it. I am not really sure we the rationale behind this as normally would like to keep patient with cardiac disease with a hemoglobin greater than 10. Patient also has some coffee-ground emesis today. Will monitor his hemoglobin closely. Also monitor his hemodynamics and thumb on a Protonix drip. Patient is also malnourished along the tele monitor his calorie requirements. Patient looks to be fairly debilitated hopefully we can get him feeling better prior to discharge. Allergies "nexia d" Allergy (Mild, Uncoded 04/04/19 00:26) Unknown Home Medications: Atorvastatin Calcium [Lipitor] 80 mg PO BEDTIME 05/17/20 Clopidogrel Bisulfate [Plavix] 75 mg PO DAILY 05/17/20 Doxazosin [Cardura] 2 mg PO BEDTIME 05/17/20 Escitalopram [Lexapro] 20 mg PO DAILY 05/17/20 Ferrous Sulfate [Feosol] 325 mg PO BID 05/17/20 Furosemide [Lasix*] 40 mg PO BID 05/17/20 Insulin NPH Human Isophane [Novolin N] 10 unit SQ DAILY 05/17/20 Insulin Regular, Human [Novolin R] 8 unit SQ DAILY 05/17/20 Metformin HCl [Glucophage] 500 mg PO BIDWM 05/17/20 Metoprolol Succinate [Toprol Xl] 50 mg PO DAILY 05/17/20 Trazodone HCl [Desyrel] 100 mg PO BEDTIME 05/17/20 - Past Medical/Surgical History Has patient received pneumonia vaccine in the past: No Diabetic: Yes -: Diabetes mellitus type 2, insulin-dependent -: CAD -: Hypertension -: Hyperlipidemia -: COPD -: Tobacco abuse -: Knee surgery -: I&D lower right buttock -: hiatal hernia repair -: I and D to the left foot -: 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 He lives with his son. - Family History Father Medical History: Heart disease, Hypertension, Lung disease, GI disease, Diabetes, Cancer, Other (see notes) Notes: parkinson's disease Mother Medical History: Heart disease, Hypertension, Diabetes, Cancer Sister Medical History: Cancer - Social History Alcohol use: No CD- Drugs: No Caffeine use: No Place of Residence: Home Review of Systems 10-point ROS is otherwise unremarkable Physical Examination - Vital Signs Temperature: 97.9 F Blood Pressure: 158/63 Pulse: 67 Respirations: 16 Pulse Ox (%): 100 - Physical Exam General: Alert, In no apparent distress, Oriented x2 HEENT: Atraumatic, PERRLA, Mucous membr. moist/pink, EOMI, Sclerae nonicteric Neck: Supple, 2+ carotid pulse no bruit, No LAD, Without JVD or thyroid abnormality Respiratory: Diminished, Crackles/rales Cardiovascular: Regular rate/rhythm, Normal S1 S2, Systolic murmur Gastrointestinal: Normal bowel sounds, Soft and benign, Non-distended, Tenderness Musculoskeletal: No tenderness, Swelling Integumentary: No rashes, Tenderness/swelling Neurological: Normal speech, Normal tone, Sensation intact, Cranial nerves 3-12 intact, Normal affect, Abnormal gait, Abnormal strength Lymphatics: No axilla or inguinal lymphadenopathy - Studies Microbiology Data (last 24 hrs): 05/17/20 11:09 Nasopharnyx Influenza Type A Antigen Screen - Final 05/17/20 11:09 Nasopharnyx Influenza Type B Antigen Screen - Final Assessment & Plan - Problems (Diagnosis) (1) Syncope and collapse Current Visit: Yes Status: Acute (2) Bradycardia Current Visit: Yes Status: Acute (3) GI bleed Current Visit: Yes Status: Acute (4) Cardiomyopathy Current Visit: Yes Status: Acute (5) Weight loss Current Visit: Yes Status: Acute (6) Depression Current Visit: No Status: Acute (7) Diabetes Current Visit: No Status: Acute (8) Weakness generalized Current Visit: No Status: Acute (9) Hypertension Onset Date: 11/05/16 Current Visit: No Status: Chronic Qualifiers: Hypertension type: essential hypertension Qualified Code(s): I10 - Essential (primary) hypertension - Plan Plan: 1. Continue with gentle IV hydration and PPI drip 2. Echocardiogram 3. Continue with pain control 4. NPO 5. GI consultation and Cardiology consultation 6. Serial H&H, and we will monitor LFTs and lipase along with electrolytes. 7. Carotid Doppler 8. Physical therapy consultation 9. GI and DVT prophylaxis Discharge Plan: Home Plan to discharge in: Greater than 2 days - Advance Directives Does patient have a Living Will: No Does patient have a Durable POA for Healthcare: No - Code Status/Comfort Care Code Status Assessed: Yes Code Status: Full Code Critical Care: No Time Spent Managing PTS Care (In Minutes): 45
--- NOTE | 2020-05-18 16:49 | CON ---
Date of Consultation: 05/18/2020 Reason For Consultation: Coffee-grounds emesis with anemia, hemoglobin down to 7.4. History Of Present Illness: The patient is a 65-year-old white male with history of diabetes, hypert ension, coronary artery disease, hyperlipidemia, COPD, tobacco abuse. The patient presented to [facility] after fall in his bathroom. According to , he sustained neck injury, back injuries and lower back injury with cervical fracture, cervical spine fracture, mild acute compression fractures of T12 and L3 vertebral bodies. The patient noted to have this coffee-grounds emesis since admission. Las t time was last night. Today, he feels better on medications. Past Medical History: Significant for diabetes, hypertension, hyperlipidemia, coronary artery diseas e, COPD, tobacco abuse, knee surgery, I and D of right buttock, hiatal hernia repair, I and D of left foot, jennifer-arthroscopy on 04/06/2019, hip surgery, CABG, and the patient's states he also has h ad stomach surgery to remove benign tumor in his stomach. Social History: The patient lives with his common-law , has 2 biological kids. No tobacco, quit in July of this year. No alcohol, quit approximately 7 years ago. Family History: Father with hypertension, heart disease, lung disease, liver disease, diabetes, canc er, and Parkinson disease. Mother with heart disease, hypertension, diabetes, and cancer of unknown type. Twin sister had cancer, possibly lung cancer. Review of Systems: The patient has dizziness, weakness, mild confusion. He said he had abdominal pain in the lower abdo men on admission, but none now. He has nausea, vomiting, regurgitation with coffee-grounds emesis, b ut no hematemesis. No melena. No hematochezia. No hematuria, dysuria, polydipsia, chest pain, shor tness of breath, or hemoptysis. No lower extremity edema, muscle aches. He does have joint aches an d backaches from all his falls with these fractures and compression fractures. He has some mild decr eased mood. Home Medications: Include Lipitor, Plavix, Cardura, Lexapro, Feosol, Lasix, Novolin insulin, Glucoph age, Toprol, Desyrel . Physical Examination: Vital Signs: The patient is 6 foot, 160 pounds, BMI 21.7 kg/m2. Temperature 97.1 degrees Fahrenheit , , respirations 18, blood pressure 165/83, O2 saturation 97%. General: He is an elderly male, lying in bed, in no acute distress. HEENT: Normocephalic, atraumatic. Anicteric. Pupils are equal, round, and reactive to light. Extr aocular movements are intact. Oropharynx is clear. Neck: Supple. No masses. Respirations: Clear to auscultation bilaterally. Cardiac: Regular rate and rhythm. No gallops. Abdomen: Positive bowel sounds. Soft, nontender, nondistended. No hepatosplenomegaly. Horizontal scar in the midepigastric area from prior gastric surgery and CABG scar as well noted. No rebound. No peritoneal or Page sign. Extremities: There is no clubbing, cyanosis, or edema. 2+ pulses. Neuro: Alert and oriented X3. Grossly nonfocal. 5/5 motor sensation to light touch. Laboratory Data: The patient had a hemoglobin of 7.4 yesterday and up to 8.6 today. [facility] of 7.6 on the 12 of May. The patient has a white count of 13.4 down from 14.45 yesterday, MCV , platelets of 201, polys of 83%, lymphocytes of 8%, monocytes 9%. PT of 11.8, INR of 1.0, PTT of 26 .8. Sodium of 144, potassium 4.1, chloride 108, bicarb 27, BUN of 48, creatinine of 3.03, glucose 20 8, calcium 8.5, phosphorus 4.1, magnesium 2.1. Total bilirubin 0.7, AST 31, ALT 35, alkaline phospha tase 35. Troponin I elevated at 0.13. B-type natriuretic peptide elevated at 18,441. Total protein 6.3, albumin 3.0, TSH of 3.06, free T4 of 1.16. COVID-19 nasal swab PCR test was negative. CT head , cervical spine, chest, abdomen, and pelvis revealed cervical fracture not visualized, but there is mild compression fractures in T12 and L3 vertebral bodies, otherwise no fractures noted. Impression: Coffee-grounds emesis with anemia, hemoglobin down to 7.4 after transfusion up to 8.6, m icrocytic with MCV of 66-67 associated with nausea, vomiting. Pain in the lower abdomen has now gone . Also history of diabetes, hypertension, hyperlipidemia, chronic obstructive pulmonary disease, cor onary artery disease status post coronary artery bypass graft in the past, tobacco abuse. Recommendations: 1.PPI therapy. 2.Continue IV fluids. 3.P.r.n. pain medicines, antiemetics. 4.Proceed with EGD urgently after resuscitation. 5.Serial H and H and transfuse p.r.n. LAURO/ERLIN Voice ID: [id number] Report ID: [id number]
[2020-05-18] MEDS ORDERED: FUROSEMIDE 20 MG/ 2ML VIAL IV SCH (17:00)
[2020-05-18 17:08] LABS: Absolute Lymphocytes (CBC) 0.7 K/uL (0.7-4.9); Basophils % 0.2 % (0-1.3); Hematocrit 26.8 % (39.6-49.0); Lymphocytes % 5.6 % (15.3-44.8); MPV 10.9 fL (7.6-11.3); RBC Red Blood Cell Count 3.95 M/uL (4.33-5.43)
[2020-05-18] MEDS ORDERED: HYDRALAZINE HCL 20 MG/ML VIAL IV ONE (17:45)
[2020-05-18 17:51] LABS: Platelet Estimate ADEQ; White Blood Cell Scan OK (OK)
[2020-05-18 17:52] LABS: Blood Morphology Comment NOTED (NOT SEEN)
--- NOTE | 2020-05-18 18:19 | CON ---
Date of Consultation: 05/18/2020 Reason For Consultation: Bradycardia and status post fall. History Of Present Illness: Mr. Anderson is a 65-year-old male. He has a history of alcohol abuse, to bacco abuse, chronic systolic congestive heart failure with an ejection fraction of 38%. He has a hi story of CABG, coronary artery disease, seizure, anemia, gastroesophageal reflux disease, diabetes, d yslipidemia, COPD, and pleural effusion status post thoracentesis not long ago. He came in status po st fall. No syncope. Was noted to be bradycardic. The patient denied any chest pain or palpitation . Denied any PND, orthopnea, pedal edema, or palpitation. Denied any fever or chills. Past Medical History: As stated above. Allergies: INCLUDE NEXIUM. Review of Systems: Negative. Social History: Negative. Family History: Negative. Medications: At home include inhalers, aspirin, Lasix, metoprolol, and Lipitor. He is also on Plavi x and Cardura. Physical Examination: Vital Signs: His initial systolic pressure was 190. It is 160 now. His initial heart rate was in t he 50s, now is in the 70s. He was afebrile. No acute distress. HEENT: Negative. Neck: Supple. No bruit, lymphadenopathy, JVD, or thyromegaly. Chest: Clear to auscultation and percussion. Cardiac: Revealed a regular rhythm and rate without any murmurs, gallops, or rubs. Abdomen: Benign. Extremities: Revealed no clubbing, cyanosis, or edema. Diagnostic Data: Echocardiogram in March 2019 showed an ejection fraction of 30%. His chest x-r ay was negative. He had a CT of his spine, pelvis, abdomen, chest and head, all of which were negati ve. His troponin was 0.08. BNP was 4468. He was anemic at 8.2, status post 1 unit of blood transfu ally. He had a white count of 15,000. Impression And Plan: 1.Bradycardia secondary to beta-virgilio. I would decrease his beta-virgilio by half. 2.History of alcohol and tobacco abuse. 3.Chronic systolic congestive heart failure that is stable. 4.Anemia, status post transfusion. 5.Elevated troponin and BNP consistent with chronic systolic congestive heart failure. 6.Elevated white count. 7.History of coronary artery bypass graft and coronary artery disease, stable. 8.History of hypertension, well controlled now. 9.History of diabetes. 10.History of dyslipidemia. 11.History of chronic obstructive pulmonary disease. 12.History of pleural effusion, status post thoracentesis. 13.History of seizure disorder. 14.Chronic anemia. I would decrease his beta-virgilio. Another echocardiogram is pending. No furth er cardiac workup planned at this point. I agree with his present regimen. I will continue to follo w him. I do not think he has congestive heart failure exacerbation. I think he may have some chroni c obstructive pulmonary disease exacerbation. I will discuss the case further with Dr. Seth. ANA/ERLIN Voice ID: [id number] Report ID: [id number]
[2020-05-18] MEDS: GLUCERNA SHAKE 237 ML CAN PO SCH (20:43)
[2020-05-18] MEDS: METOPROLOL TAR 50 MG TAB PO SCH (20:48)
[2020-05-18] MEDS ORDERED: INSULIN -REGULAR HUMAN 50 UNIT/0.5 ML ML SQ SCH (21:00)
[2020-05-18] MEDS: ALBUTEROL 2.5 MG/3 ML NEB SOL NEB SCH (21:05)
[2020-05-18] MEDS: IPRATROPIUM BROM 0.5MG/2.5ML NEB SCH (21:05)
[2020-05-18] MEDS ORDERED: ALBUTEROL 2.5 MG/3 ML NEB SOL ONE (21:16)
[2020-05-18] MEDS ORDERED: IPRATROPIUM BROM 0.5MG/2.5ML ONE (21:16)
--- NOTE | 2020-05-18 21:20 | RAD REPORT ---
EXAM DESCRIPTION: RAD - Chest Single View - 05/18/2020 9:10 pm CLINICAL HISTORY: Dyspnea Chest pain. COMPARISON: Chest Single View dated 05/17/2020; Chest Single View dated 07/18/2019; Chest Single View d ated 07/03/2019; Chest Pa And Lat (2 Views) dated 06/26/2019 FINDINGS: Portable technique limits examination quality. Large area of opacification is seen inferior left hemithorax. This is of unclear etiology and may rep resent elevated left hemidiaphragm or infiltrate. The heart is mildly prominent size. Sternotomy wire s present.Recommend followup CT chest for further assessment.
[2020-05-18 21:21] LABS: Absolute Lymphocytes (CBC) 0.4 K/uL (0.7-4.9); Basophils % 0.2 % (0-1.3); Hematocrit 26.8 % (39.6-49.0); Lymphocytes % 3.4 % (15.3-44.8); MPV 10.5 fL (7.6-11.3); RBC Red Blood Cell Count 4.07 M/uL (4.33-5.43)
[2020-05-18 21:43] LABS: Potassium 3.8 mmol/L (3.5-5.1)
[2020-05-18 22:34] LABS: Urine Appearance CLOUDY; Urine Bilirubin NEGATIVE (NEG); Urine Blood 1+ (NEG); Urine Color YELLOW; Urine Glucose TRACE (NEG); Urine Protein 3+ (NEG); Urine Specific Gravity 1.015 (1.005-1.030); Urine Urobilinogen 0.2 mg/dL (0.2-1.0); Urine pH 5.5 (5.0-7.0)
[2020-05-18] MEDS: PIPER/TAZO/NS 4.5gm 4.5 GM/100 ML BAG IVPB SCH (23:00)
[2020-05-18 23:39] LABS: Urine Amorphous Sediment 3+ /HPF (NONE SEEN); Urine Bacteria >50 /HPF (NONE SEEN); Urine Coarse Granular Casts FEW /LPF (NONE SEEN); Urine Culture Reflex Order REFLEXED; Urine Mucus 2+ /HPF (NONE SEEN); Urine RBC <5 /HPF (NONE SEEN)
[2020-05-18] MEDS: NACHLORIDE 0.45% 1,000 ML IV SCH (23:46)
[2020-05-18] MEDS ORDERED: PIPERACIL/TAZO 4.5 GM VIAL IV ONE (23:48)
[2020-05-18] MEDS ORDERED: NA CHLORIDE 0.9% 200 ML ONE (23:51)
[2020-05-19] MEDS: HYDROMORPHONE HCL 0.5 MG/0.5 ML INJ IV PRN ×4 (00:57→21:03)
[2020-05-19] MEDS: ONDANSETRON 4 MG/2 ML VIAL IV PRN ×3 (00:57→14:52)
[2020-05-19] MEDS: ALBUTEROL 2.5 MG/3 ML NEB SOL NEB SCH ×5 (01:35→19:40)
[2020-05-19] MEDS: IPRATROPIUM BROM 0.5MG/2.5ML NEB SCH ×3 (01:35→19:40)
[2020-05-19] MEDS: HYDRALAZINE HCL 20 MG/ML VIAL IV PRN ×2 (02:07→09:29)
[2020-05-19] MEDS ORDERED: LORazepam 2 MG/ML VIAL IV ONE (02:53)
[2020-05-19] MEDS: PANTOPRAZOLE INJ 80 MG in NA CHLORIDE 0.9% 250 ML IV SCH ×6 (04:38→20:00)
[2020-05-19] MEDS: INSULIN -REGULAR HUMAN 50 UNIT/0.5 ML ML SQ SCH ×4 (05:46→21:28)
[2020-05-19 06:00] LABS: Absolute Lymphocytes (CBC) 0.3 K/uL (0.7-4.9); Basophils % 0.2 % (0-1.3); Hematocrit 26.6 % (39.6-49.0); Lymphocytes % 2.5 % (15.3-44.8); MPV 10.9 fL (7.6-11.3); RBC Red Blood Cell Count 3.97 M/uL (4.33-5.43)
[2020-05-19 06:48] LABS: BUN Blood Urea Nitrogen 51 mg/dL (7-18); Bicarbonate 22 mmol/L (21-32); Folic Acid, (Folate) > 20.0 ng/mL (3.1-17.5); Glucose Level 319 mg/dL (74-106); Magnesium 2.2 mg/dL (1.8-2.4); Phosphorus 3.8 mg/dL (2.5-4.9); Potassium 3.6 mmol/L (3.5-5.1); Sodium Level 145 mmol/L (136-145)
[2020-05-19] MEDS: PIPER/TAZO/NS 4.5gm 4.5 GM/100 ML BAG IVPB SCH ×3 (07:00→17:11)
[2020-05-19 07:17] LABS: Anisocytosis 1+; Blood Morphology Comment NOTED (NOT SEEN); Hypochromasia 1+; Platelet Estimate ADEQ; White Blood Cell Scan OK (OK)
--- NOTE | 2020-05-19 07:36 | EKG ---
Test Date: 2020-05-17 Test Time: 12:27:32 Corporate Security Manager: NOE MEASUREMENT RESULTS: Intervals: Rate: 79 DC: 214 QRSD: 150 QT: 460 QTc: 527 Surveyor: P: 79 DC: 214 QRS: -2 T: 258 INTERPRETIVE STATEMENTS: Sinus rhythm with 1st degree AV block Left bundle branch block Abnormal ECG Compared to ECG 05/17/2020 07:34:39 First degree AV block now present Left bundle-branch block now present Atrial premature complex(es) no longer present Electronically Signed On 05-19-20 07:32:51 MACHINE REPAIRER by Martin Reyes
[2020-05-19] MEDS: GLUCERNA SHAKE 237 ML CAN PO SCH ×2 (08:14→21:15)
[2020-05-19] MEDS ORDERED: KCL 20 MEQ/100 mL IVPB 20 MEQ/100 ML BAG IV SCH (09:00)
[2020-05-19] MEDS: SOD FERRIC GLUC COMPLX/SUCROSE 125 MG in NA CHLORIDE 0.9% 100 ML IV SCH (09:20)
[2020-05-19] MEDS: ENOXAPARIN 40 MG/0.4 ML SQ SCH (09:29)
--- NOTE | 2020-05-19 09:59 | P.PN ---
Subjective Date of Service: 05/18/20 EGD revealed hiatal hernia and gastritis. No signs of active bleeding. Patient still is weak and lethargic at this time. He just came back from the EGD and has some lethargy. Cardiac triplett recommended decreasing beta-virgilio dose inhalers. Monitor bradycardia. Physical therapy evaluation and we need to get patient out of bed to ambulate. Review of Systems 10-point ROS is otherwise unremarkable Physical Examination - Vital Signs Temperature: 97.5 F Blood Pressure: 160/62 Pulse: 98 Respirations: 16 Pulse Ox (%): 98 - Physical Exam General: Alert, In no apparent distress, Oriented x3 Respiratory: Diminished, Expiratory wheezes Cardiovascular: Regular rate/rhythm, Normal S1 S2, No murmurs Gastrointestinal: Normal bowel sounds, Soft and benign, Non-distended, No tenderness Musculoskeletal: No clubbing, No swelling, No tenderness Neurological: Normal strength at 5/5 x4 extr, Sensation intact, Cranial nerves 3-12 intact - Studies Medications List Reviewed: Yes Assessment & Plan - Problems (Diagnosis) (1) Syncope and collapse Current Visit: Yes Status: Acute (2) Bradycardia Current Visit: Yes Status: Acute (3) GI bleed Current Visit: Yes Status: Acute (4) Cardiomyopathy Current Visit: Yes Status: Acute (5) Weight loss Current Visit: Yes Status: Acute (6) Depression Current Visit: No Status: Acute (7) Diabetes Current Visit: No Status: Acute (8) Weakness generalized Current Visit: No Status: Acute (9) Hypertension Onset Date: 11/05/16 Current Visit: No Status: Chronic Qualifiers: Hypertension type: essential hypertension Qualified Code(s): I10 - E ssential (primary) hypertension - Plan Plan: 1. Continue with gentle IV hydration and PPI drip; H&H pending 2. Echocardiogram pending 3. Continue with pain control 4. Clear liquid diet and advance as tolerated 5. Appreciate GI consultation and Cardiology consultation; nephrology consultation pending 6. Serial H&H, and we will monitor LFTs and lipase along with electrolytes; labs were stable except renal function elevated. I backed off on Lasix 7. Carotid Doppler with no significant abnormality 8. Physical therapy consultation 9. GI and DVT prophylaxis Discharge Plan: Home Plan to discharge in: Greater than 2 days - Advance Directives Does patient have a Living Will: No Does patient have a Durable POA for Healthcare: No - Code Status/Comfort Care Code Status: Full Code Critical Care: No Time Spent Managing PTS Care (In Minutes): 35
[2020-05-19] MEDS ORDERED: TAMSULOSIN 0.4 MG SR CAP PO ONE (10:41)
[2020-05-19] MEDS: DOXAZOSIN 2 MG TAB PO SCH ×2 (10:42→21:14)
[2020-05-19] MEDS: PROMETHAZINE INJ 25 MG/ML AMP IV PRN (10:42)
[2020-05-19] MEDS: METOPROLOL TAR 50 MG TAB PO SCH ×2 (10:43→21:05)
--- NOTE | 2020-05-19 10:44 | RAD REPORT ---
EXAM DESCRIPTION: CT - Chest Abd Pelvis Wo Con - 05/18/2020 10:44 pm CLINICAL HISTORY: Dyspnea. vomiting TECHNIQUE: Contiguous axial images obtained through the abdomen and pelvis without IV contrast. Layton nal and sagittal reformatted images were provided. This exam was performed according to our departmental dose-optimization program, which includes autom ated exposure control, adjustment of the mA and/or kV according to patient size and/or use of iterati ve reconstruction technique. COMPARISON: None available for comparison. FINDINGS: Liver: Grossly unremarkable Gallbladder and biliary system: Unremarkable Pancreas: Grossly unremarkable Spleen: Grossly unremarkable Adrenals: Bilateral adrenal thickening. Kidneys: Mild bilateral perinephric stranding. 3.1 cm exophytic cyst at the upper pole on the right. No calculi. No hydronephrosis. Bowel: The stomach appears somewhat thickened. Moderate stool. No obstruction. Appendix: Normal caliber appendix. No findings to suggest acute appendicitis. Urinary bladder: Holcomb catheter in place. Reproductive: The prostate is mildly enlarged. Lymph nodes: No pathologically enlarged lymph nodes. Peritoneum: Small amount of free fluid within the pelvis No free air. Vessels: Moderate atherosclerotic disease. No abdominal aortic aneurysm. Abdominal wall: Tiny fat-containing umbilical hernia. Bones: Multilevel spondylosis. Superior compression fracture at L3 with approximately 20% loss of ove rall height and minimal retropulsion. Left total hip arthroplasty hardware in place. IMPRESSION: 1. The stomach appears somewhat thickened. This may be related to degree of distention or reflect mild nonspecific gastritis. 2. Mild bilateral perinephric stranding. This is nonspecific and may be chronic. Acute superimposed inflammatory process not excluded. 3. L3 compression fracture. 4. Other findings as above. Electronically signed by: Gabriele Jimenes MD 05/18/2020 11:17 PM VEGETABLE LOADER Due to temporary technical issues with the PACS/Fluency reporting system, reports are being signed by the in house radiologists without review as a courtesy to insure prompt reporting. The interpreting radiologist is fully responsible for the content of the report.
--- NOTE | 2020-05-19 11:24 | PN ---
Date of Progress Note: 05/19/2020 Subjective: Mr. Anderson was seen yesterday following a fall and bradycardia. He has a history of alc ohol abuse, tobacco abuse, chronic systolic congestive heart failure with an ejection fraction of 30% , hypertension, diabetes, dyslipidemia, COPD, and pleural effusion, status post thoracentesis. He pérez s had a history of CAD and CABG. In May of 2019, his ejection fraction was 30%. Yesterday, ech ocardiogram showed an ejection fraction of 47%. This has improved drastically since his bypass surge ry. I am comfortable with him going home with his home medication, but decrease his beta-virgilio to half a dose because of bradycardia. The case was discussed with Dr. Seth. No change in his medical therapy otherwise. I would like to have him come see us in the office in the next 2 weeks. ANA/ERLIN Voice ID: [id number] Report ID: [id number]
[2020-05-19] MEDS: METOCLOPRAMIDE 10 MG/2mL INJ IV SCH ×3 (12:20→21:06)
[2020-05-19] MEDS: NACHLORIDE 0.45% 1,000 ML IV SCH (19:00)
--- NOTE | 2020-05-19 21:00 | P.PN ---
Date of Service: 05/19/20 Vital Signs Temp Pulse Resp BP Pulse Ox 99.2 F 85 20 160/70 H 96 05/19/20 16:00 05/19/20 16:00 05/19/20 16:25 05/19/20 16:30 05/19/20 16:25 Medications Acetaminophen (Tylenol -Extra Strength) 500 mg PO Q4HP PRN PRN Reason: Pain/fever Stop: 06/16/20 12:45 Last Admin: 05/17/20 17:49 Dose: 500 mg Documented by: Albuterol Sulfate (Proventil 0.083% Neb Soln) 2.5 mg NEB [id number] [facility] Stop: 06/18/20 02:01 Last Admin: 05/19/20 12:37 Dose: 2.5 mg Documented by: Dextrose (Dextrose 50% Syringe/Vial) 12.5 gm IV PRN PRN; Protocol PRN Reason: HYPOGLYCEMIA Stop: 06/16/20 21:03 Doxazosin Mesylate (Cardura) 2 mg PO DAILY [facility] Stop: 06/17/20 09:01 Last Admin: 05/19/20 10:42 Dose: 2 mg Documented by: Enoxaparin Sodium (Lovenox 40 Mg Inj) 40 mg SQ DAILY [facility] Stop: 06/17/20 09:01 Last Admin: 05/19/20 09:29 Dose: 40 mg Documented by: Enteral Nutritional Formula (Glucerna Shake) 237 ml PO BID [facility] Stop: 06/17/20 21:01 Last Admin: 05/19/20 08:14 Dose: 237 ml Documented by: Glucagon (Glucagen) 1 mg IM 1X PRN; Protocol PRN Reason: HYPOGLYCEMIA Stop: 06/16/20 21:03 Hydralazine HCl (Apresoline) 10 mg IV Q4HP PRN PRN Reason: FOR SBP>160 OR DBP>100 MMHG Stop: 06/17/20 17:15 Last Admin: 05/19/20 09:29 Dose: 10 mg Documented by: Hydromorphone HCl (Dilaudid) 0.5 mg IV Q4H PRN PRN Reason: Pain scale 5-7 (Moderate) Stop: 06/16/20 17:35 Last Admin: 05/19/20 14:53 Dose: 0.5 mg Documented by: Pantoprazole Sodium 80 mg/ (Sodium Chloride) 250 mls @ 25 mls/hr IV Q10H [facility]; Protocol Stop: 06/16/20 18:01 Last Admin: 05/19/20 17:15 Dose: 250 mls Documented by: Sodium Chloride (Sodium Chloride 0.45%) 1,000 mls @ 50 mls/hr IV .Q20H [facility] Stop: 06/17/20 23:01 Last Admin: 05/18/20 23:46 Dose: 1,000 mls Documented by: Piperacillin/Tazobactam/Sod Chloride (Zosyn 4.5 Gm/100 Ml Ivpb) 4.5 gm in 100 mls @ 100 mls/hr IVPB Q8HR [facility]; Protocol Stop: 06/18/20 09:01 Last Admin: 05/19/20 17:11 Dose: 100 mls Documented by: Ferric Sodium Gluconate Complex 125 mg/ Sodium Chloride 110 mls @ 100 mls/hr IV DAILY [facility] Stop: 05/26/20 10:05 Last Admin: 05/19/20 09:20 Dose: 110 mls Documented by: Insulin Human Regular (Novolin -R) 0 unit SQ Q6H [facility]; Protocol Stop: 06/18/20 05:31 Last Admin: 05/19/20 17:18 Dose: Not Given Documented by: Ipratropium [place] (Atrovent Neb) 0.5 mg NEB [id number] [facility] Stop: 06/18/20 20:55 Last Admin: 05/19/20 07:44 Dose: 0.5 mg Documented by: Metoclopramide HCl (Reglan) 10 mg IV ACHS [facility] Stop: 06/18/20 11:31 Last Admin: 05/19/20 17:10 Dose: 10 mg Documented by: Metoprolol Tartrate (Lopressor) 50 mg PO BID [facility] Stop: 06/17/20 21:01 Last Admin: 05/19/20 10:43 Dose: 50 mg Documented by: Ondansetron HCl (Zofran) 4 mg IV Q6HP PRN PRN Reason: NAUSEA / VOMITING Stop: 06/16/20 12:45 Last Admin: 05/19/20 14:52 Dose: 4 mg Documented by: Promethazine HCl (Phenergan) 12.5 mg IV Q6H PRN PRN Reason: NAUSEA / VOMITING Stop: 06/16/20 19:58 Last Admin: 05/19/20 10:42 Dose: 12.5 mg Documented by: Sodium Chloride (Normal Saline Flush) 10 ml IV BID [facility] Stop: 06/16/20 21:01 Last Admin: 05/19/20 10:43 Dose: 10 ml Documented by: Tamsulosin HCl (Flomax) 0.4 mg PO BEDTIME [facility] Stop: 06/18/20 21:01 Lab Results (last 24 hrs) 05/17/20 11:36: ABO/Rh A POSITIVE, Solid Phase Ab Screen Negative, Crossmatch See Detail Microbiology Results 05/17/20 11:09 Nasopharnyx Influenza Type A Antigen Screen - Final 05/17/20 11:09 Nasopharnyx Influenza Type B Antigen Screen - Final Assessment/ Plan: Nephrology CPS stable without CP or SOB. No acute events overnight. Nausea this morning. Vitals, medications, blood work and imaging reviewed in the chart. NAD. MMM. Neck supple. CTA. RRR. Soft Abd. No C/C/E. No rash. AAO. Normal Speech. 05/17/20 07:47: PT 11.8, INR 1.00, APTT 26.8 05/17/20 07:47: WBC 14.5 H, Hgb 8.2 L, Hct 24.9 L, Plt Count 198 05/17/20 07:47: Sodium 142, Potassium 3.7, BUN 46 H, Creatinine 1.83 H, Glucose 150 H, Total Bilirubin 0.9, AST 33, ALT 44, Alkaline Phosphatase 67, Lipase 86 Imagings Data: EXAM DESCRIPTION: CT - Head C Spine Cap Wo Con - 05/17/2020 8:12 am TECHNIQUE: Computed axial tomography of the head and cervical spine was obtained. Coronal and sagittal reconstruction was performed Computed axial tomography of the chest, abdomen and pelvis was obtained. Contrast was not requested. All CT scans are performed using dose optimization technique as appropriate and may include automated exposure control or mA/KV adjustment according to patient size. CLINICAL HISTORY: Head and neck injury with chest and abdominal pain status post fall COMPARISON: CT chest 2018 FINDINGS: An intracranial bleed is not seen. Low-density within the right internal capsule/basal ganglia has the appearance of an old lacunar infarction. 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 The ventricles are normal in caliber. An extra-axial fluid collection is not noted. . Opacification of the left mastoid. This may indicate mastoiditis and should be correlated clinically. A cervical fracture is not seen. No dislocation is noted. Spondylosis involves the cervical spine resulting central and foraminal stenosis The evaluation of mediastinum, tiffany, vessels, solid organs and bowel are limited secondary to the lack of contrast administration. A mediastinal hematoma is not noted. A pleural effusion is not seen. A lung contusion is not present. The liver,spleen, pancreas, adrenals,kidneys and bladder the do not demonstrate a traumatic injury Right renal cyst Mild acute compression fracture T12 vertebral body. Minimal retropulsion of fracture fragment into the spinal canal. The vertebral body is approximately 87% normal height Mild acute compression fracture L3 vertebral body. Vertebral body is approximately 85% normal height Trace amount of free fluid within the pelvis IMPRESSION: 1. No acute intracranial abnormality is seen. 2. A cervical fracture is not visualized. If the patient continues have symptoms to suggest intracranial/spinal cord pathology MRI be recommended 3. No traumatic abnormality involving the chest 4. Mild acute compression fractures T12 and L3 vertebral bodies EXAM DESCRIPTION: [facility] Single View05/17/2020 8:19 am CLINICAL HISTORY: Chest pain COMPARISON: July 2019 FINDINGS: The lungs appear clear of acute infiltrate. The heart is mildly enlarged. Postsurgical changes involve the chest. IMPRESSION: No acute abnormalities displayed Conclusions/Impression: A/ OSCAR in the setting of hypovolemia, worse. HTN uncontrolled DM II GI bleed. P/ Continue current POC and Medications Gentle IVF. Discontinue furosemide. Continue metoprolol and increase doxazosin. Follow up with GI. Transfuse PRBC as needed. No NSAIDs. AM labs. Daily weight. Case reviewed with Dr. Seth.
[2020-05-19] MEDS: TAMSULOSIN 0.4 MG SR CAP PO SCH (21:04)
[2020-05-20] MEDS: PIPER/TAZO/NS 4.5gm 4.5 GM/100 ML BAG IVPB SCH ×4 (00:15→23:59)
[2020-05-20] MEDS: HYDRALAZINE HCL 20 MG/ML VIAL IV PRN ×2 (00:30→04:23)
[2020-05-20] MEDS: HYDROMORPHONE HCL 0.5 MG/0.5 ML INJ IV PRN ×6 (01:26→22:59)
[2020-05-20] MEDS: ALBUTEROL 2.5 MG/3 ML NEB SOL NEB SCH ×4 (02:47→20:56)
[2020-05-20] MEDS: IPRATROPIUM BROM 0.5MG/2.5ML NEB SCH ×4 (02:47→20:56)
[2020-05-20] MEDS: PANTOPRAZOLE INJ 80 MG in NA CHLORIDE 0.9% 250 ML IV SCH ×3 (03:46→16:29)
[2020-05-20] MEDS: ONDANSETRON 4 MG/2 ML VIAL IV PRN ×3 (05:28→18:59)
[2020-05-20] MEDS: NACHLORIDE 0.45% 1,000 ML IV SCH (07:28)
[2020-05-20 07:40] LABS: Potassium 3.5 mmol/L (3.5-5.1)
[2020-05-20] MEDS: INSULIN -REGULAR HUMAN 50 UNIT/0.5 ML ML SQ SCH ×4 (08:33→20:22)
[2020-05-20] MEDS: ENOXAPARIN 40 MG/0.4 ML SQ SCH (08:33)
[2020-05-20] MEDS: METOCLOPRAMIDE 10 MG/2mL INJ IV SCH ×4 (08:33→20:21)
[2020-05-20] MEDS: GLUCERNA SHAKE 237 ML CAN PO SCH ×2 (08:34→20:23)
[2020-05-20] MEDS: METOPROLOL TAR 50 MG TAB PO SCH (09:00)
[2020-05-20] MEDS: DOXAZOSIN 2 MG TAB PO SCH ×2 (09:00→20:22)
--- NOTE | 2020-05-20 09:32 | P.PN ---
Subjective Date of Service: 05/19/20 Patient continues to decline gradually. His symptoms are improved but he is really not making much of an effort to do anything with physical therapy and he will want speech therapy came to see him he really is not giving us a great effort. His labs and vitals are stable. He appears to be depressed. Continue to encourage him to do more for himself and went to work on discharge planning. He will need home health arranged as well. Review of Systems 10-point ROS is otherwise unremarkable Physical Examination - Vital Signs Temperature: 98.8 F Blood Pressure: 158/68 Pulse: 88 Respirations: 18 Pulse Ox (%): 98 - Studies Medications List Reviewed: Yes Assessment & Plan - Problems (Diagnosis) (1) Syncope and collapse Current Visit: Yes Status: Acute (2) Bradycardia Current Visit: Yes Status: Acute (3) GI bleed Current Visit: Yes Status: Acute (4) Cardiomyopathy Current Visit: Yes Status: Acute (5) Weight loss Current Visit: Yes Status: Acute (6) Depression Current Visit: No Status: Acute (7) Diabetes Current Visit: No Status: Acute (8) Weakness generalized Current Visit: No Status: Acute (9) Hypertension Onset Date: 11/05/16 Current Visit: No Status: Chronic Qualifiers: Hypertension type: essential hypertension Qualified Code(s): I10 - Essential (primary) hypertension - Plan Plan: Continue with plan of care as mentioned below: 1. Continue with gentle IV hydration; continue with PPI orally 2. Echocardiogram revealed ejection fraction of 40% which is improved from before 3. Continue with pain control 4. Advanced diet per speech therapy recommendations 5. Appreciate specification consultant's recommendation 6. Continue monitoring labs closely 7. Appreciate physical therapy and speech therapy evaluation 8. GI and DVT prophylaxis - Advance Directives Does patient have a Living Will: No Does patient have a Durable POA for Healthcare: No - Code Status/Comfort Care Code Status: Full Code
[2020-05-20] MEDS: SOD FERRIC GLUC COMPLX/SUCROSE 125 MG in NA CHLORIDE 0.9% 100 ML IV SCH (10:07)
[2020-05-20 14:18] LABS: Absolute Lymphocytes (CBC) 0.7 K/uL (0.7-4.9); Basophils % 0.2 % (0-1.3); Hematocrit 27.7 % (39.6-49.0); Lymphocytes % 7.5 % (15.3-44.8); MPV 10.5 fL (7.6-11.3); RBC Red Blood Cell Count 4.08 M/uL (4.33-5.43)
[2020-05-20] MEDS: PROMETHAZINE INJ 25 MG/ML AMP IV PRN ×2 (14:35→22:58)
[2020-05-20 15:00] LABS: Platelet Estimate ADEQ; White Blood Cell Scan OK (OK)
[2020-05-20 15:01] LABS: Blood Morphology Comment NOTED (NOT SEEN)
[2020-05-20 15:23] LABS: Magnesium 2.2 mg/dL (1.8-2.4); Phosphorus 3.3 mg/dL (2.5-4.9); Potassium 3.5 mmol/L (3.5-5.1)
[2020-05-20] MEDS: ESCITALOPRAM 20 MG TAB PO SCH (16:56)
--- NOTE | 2020-05-20 18:55 | P.PN ---
Subjective Date of Service: 05/19/20 Chief Complaint: Fall injury, coffee-ground emesis, anemia Subjective: No new changes, Tolerating diet (No further coffee-ground emesis. Hgb 8.5. Nausea continue.) Review of Systems 10-point ROS is otherwise unremarkable General: Weakness, Malaise Gastrointestinal: Nausea Physical Examination - Vital Signs Temperature: 99 F Blood Pressure: 154/68 Pulse: 105 Respirations: 15 Pulse Ox (%): 98 - Physical Exam General: In no apparent distress, Disheveled, Other (somnolent but arousable.) HEENT: Atraumatic, Normocephalic, PERRLA, EOMI Neck: Supple Respiratory: Normal air movement Cardiovascular: Normal pulses Gastrointestinal: Soft and benign, No tenderness, No rebound, No guarding Neurological: Normal speech - Studies Medications List Reviewed: Yes Assessment And Plan - Current Problems (Diagnosis) (1) Coffee ground emesis Current Visit: Yes Status: Acute (2) Bradycardia Current Visit: Yes Status: Acute (3) Cardiomyopathy Current Visit: Yes Status: Acute (4) Syncope and collapse Current Visit: Yes Status: Acute (5) Anemia Onset Date: 11/05/16 Current Visit: No Status: Chronic - Plan REC: 1) UGI series and small bowel series 2) consider repeat colonoscopy (last 1-2 months ago)
[2020-05-20] MEDS ORDERED: HYDROCORTISONE SUC 100 MG INJ IV ONE (19:00)
--- NOTE | 2020-05-20 19:01 | P.PN ---
Subjective Date of Service: 05/20/20 Chief Complaint: Fall injury, coffee-ground emesis, anemia Subjective: Improving (Downstairs getting UGI series and small bowel series. in room stating he is doing better today. WBC normal today for 1st time on this admission; 13.2 to 9.9 today. Nausea possibly better due to improvement in sepsis.) Physical Examination - Vital Signs Temperature: 99 F Blood Pressure: 154/68 Pulse: 105 Respirations: 15 Pulse Ox (%): 98 - Studies Medications List Reviewed: Yes Assessment And Plan - Current Problems (Diagnosis) (1) Coffee ground emesis Current Visit: Yes Status: Acute (2) Bradycardia Current Visit: Yes Status: Acute (3) Cardiomyopathy Current Visit: Yes Status: Acute (4) Syncope and collapse Current Visit: Yes Status: Acute (5) Anemia Onset Date: 11/05/16 Current Visit: No Status: Chronic - Plan REC: 1) await UGI series and small bowel series 2) consider repeat colonoscopy (last 1-2 months ago) 3) continue IV antibiotics
[2020-05-20] MEDS: ATORVASTATIN 80 MG TAB PO SCH (20:21)
[2020-05-20] MEDS: TAMSULOSIN 0.4 MG SR CAP PO SCH (20:22)
[2020-05-20] MEDS ORDERED: TRAZODONE 50 MG TABLET PO SCH (21:00)
[2020-05-20] MEDS ORDERED: TRAZODONE HCL 100 MG PO SCH (21:00)
--- NOTE | 2020-05-20 21:14 | P.PN ---
Date of Service: 05/20/20 Vital Signs Temp Pulse Resp BP Pulse Ox 98.9 F 98 H 16 173/77 H 98 05/20/20 20:00 05/20/20 20:22 05/20/20 20:00 05/20/20 20:22 05/20/20 20:00 Medications Acetaminophen (Tylenol -Extra Strength) 500 mg PO Q4HP PRN PRN Reason: Pain/fever Stop: 06/16/20 12:45 Last Admin: 05/17/20 17:49 Dose: 500 mg Documented by: Albuterol Sulfate (Proventil 0.083% Neb Soln) 2.5 mg NEB [id number] [facility] Stop: 06/18/20 02:01 Last Admin: 05/20/20 14:27 Dose: 2.5 mg Documented by: Atorvastatin Calcium (Lipitor) 80 mg PO BEDTIME [facility] Stop: 06/19/20 21:01 Last Admin: 05/20/20 20:21 Dose: 80 mg Documented by: Clopidogrel Bisulfate (Plavix) 75 mg PO DAILY [facility] Stop: 06/20/20 09:01 Dextrose (Dextrose 50% Syringe/Vial) 12.5 gm IV PRN PRN; Protocol PRN Reason: HYPOGLYCEMIA Stop: 06/16/20 21:03 Doxazosin Mesylate (Cardura) 2 mg PO BID [facility] Stop: 06/18/20 21:01 Last Admin: 05/20/20 20:22 Dose: 2 mg Documented by: Enoxaparin Sodium (Lovenox 40 Mg Inj) 40 mg SQ DAILY [facility] Stop: 06/17/20 09:01 Last Admin: 05/20/20 08:33 Dose: 40 mg Documented by: Enteral Nutritional Formula (Glucerna [place]) 237 ml PO BID [facility] Stop: 06/17/20 21:01 Last Admin: 05/20/20 20:23 Dose: 237 ml Documented by: Escitalopram Oxalate (Lexapro) 20 mg PO DAILY [facility] Stop: 06/20/20 09:01 Last Admin: 05/20/20 16:56 Dose: 20 mg Documented by: Glucagon (Glucagen) 1 mg IM 1X PRN; Protocol PRN Reason: HYPOGLYCEMIA Stop: 06/16/20 21:03 Hydralazine HCl (Apresoline) 10 mg IV Q4HP PRN PRN Reason: FOR SBP>160 OR DBP>100 MMHG Stop: 06/17/20 17:15 Last Admin: 05/20/20 04:23 Dose: 10 mg Documented by: Hydromorphone HCl (Dilaudid) 0.5 mg IV Q4H PRN PRN Reason: Pain scale 5-7 (Moderate) Stop: 06/16/20 17:35 Last Admin: 05/20/20 18:52 Dose: 0.5 mg Documented by: Pantoprazole Sodium 80 mg/ (Sodium Chloride) 250 mls @ 25 mls/hr IV Q10H [facility]; Protocol Stop: 06/16/20 18:01 Last Admin: 05/20/20 16:29 Dose: 250 mls Documented by: Piperacillin/Tazobactam/Sod Chloride (Zosyn 4.5 Gm/100 Ml Ivpb) 4.5 gm in 100 mls @ 100 mls/hr IVPB Q8HR [facility]; Protocol Stop: 06/18/20 09:01 Last Admin: 05/20/20 16:56 Dose: 100 mls Documented by: Ferric Sodium Gluconate Complex 125 mg/ Sodium Chloride 110 mls @ 100 mls/hr IV DAILY [facility] Stop: 05/26/20 10:05 Last Admin: 05/20/20 10:07 Dose: 110 mls Documented by: Potassium Chloride 20 meq/ (Sodium Chloride) 1,010 mls @ 100 mls/hr IV .Q10H6M [facility] Stop: 06/19/20 21:01 Insulin Human Regular (Novolin -R) 0 unit SQ [facility]; Protocol Stop: 06/18/20 21:20 Last Admin: 05/20/20 20:22 Dose: 2 unit Documented by: Ipratropium [place] (Atrovent Neb) 0.5 mg NEB [id number] [facility] Stop: 06/18/20 20:55 Last Admin: 05/20/20 14:27 Dose: 0.5 mg Documented by: Metoclopramide HCl (Reglan) 10 mg IV ACHS [facility] Stop: 06/18/20 11:31 Last Admin: 05/20/20 20:21 Dose: 10 mg Documented by: Metoprolol Succinate (Toprol Xl) 50 mg PO BID [facility] Stop: 06/19/20 21:06 Ondansetron HCl (Zofran) 4 mg IV Q6HP PRN PRN Reason: NAUSEA / VOMITING Stop: 06/16/20 12:45 Last Admin: 05/20/20 18:59 Dose: 4 mg Documented by: Promethazine HCl (Phenergan) 12.5 mg IV Q6H PRN PRN Reason: NAUSEA / VOMITING Stop: 06/16/20 19:58 Last Admin: 05/20/20 14:35 Dose: 12.5 mg Documented by: Sodium Chloride (Normal Saline Flush) 10 ml IV BID [facility] Stop: 06/16/20 21:01 Last Admin: 05/20/20 20:23 Dose: 10 ml Documented by: Tamsulosin HCl (Flomax) 0.4 mg PO BEDTIME [facility] Stop: 06/18/20 21:01 Last Admin: 05/20/20 20:22 Dose: 0.4 mg Documented by: Trazodone HCl (Desyrel) 100 mg PO BEDTIME [facility] Stop: 06/19/20 21:01 Last Admin: 05/20/20 20:22 Dose: 100 mg Documented by: Microbiology Results 05/17/20 11:09 Nasopharnyx Influenza Type A Antigen Screen - Final 05/17/20 11:09 Nasopharnyx Influenza Type B Antigen Screen - Final Assessment/ Plan: Nephrology CPS stable without CP or SOB. No acute events overnight. Nausea and malaise. Vitals, medications, blood work and imaging reviewed in the chart. NAD. MMM. Neck supple. CTA. RRR. Soft Abd. No C/C/E. No rash. AAO. Normal Speech. 05/17/20 07:47: PT 11.8, INR 1.00, APTT 26.8 05/17/20 07:47: WBC 14.5 H, Hgb 8.2 L, Hct 24.9 L, Plt Count 198 05/17/20 07:47: Sodium 142, Potassium 3.7, BUN 46 H, Creatinine 1.83 H, Glucose 150 H, Total Bilirubin 0.9, AST 33, ALT 44, Alkaline Phosphatase 67, Lipase 86 Imagings Data: EXAM DESCRIPTION: CT - Head C Spine Cap Wo Con - 05/17/2020 8:12 am TECHNIQUE: Computed axial tomography of the head and cervical spine was obtained. Coronal and sagittal reconstruction was performed Computed axial tomography of the chest, abdomen and pelvis was obtained. Contrast was not requested. All CT scans are performed using dose optimization technique as appropriate and may include automated exposure control or mA/KV adjustment according to patient size. CLINICAL HISTORY: Head and neck injury with chest and abdominal pain status post fall COMPARISON: CT chest 2018 FINDINGS: An intracranial bleed is not seen. Low-density within the right internal capsule/basal ganglia has the appearance of an old lacunar infarction. 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 The ventricles are normal in caliber. An extra-axial fluid collection is not noted. . Opacification of the left mastoid. This may indicate mastoiditis and should be correlated clinically. A cervical fracture is not seen. No dislocation is noted. Spondylosis involves the cervical spine resulting central and foraminal stenosis The evaluation of mediastinum, tiffany, vessels, solid organs and bowel are limited secondary to the lack of contrast administration. A mediastinal hematoma is not noted. A pleural effusion is not seen. A lung contusion is not present. The liver,spleen, pancreas, adrenals,kidneys and bladder the do not demonstrate a traumatic injury Right renal cyst Mild acute compression fracture T12 vertebral body. Minimal retropulsion of fracture fragment into the spinal canal. The vertebral body is approximately 87% normal height Mild acute compression fracture L3 vertebral body. Vertebral body is approximately 85% normal height Trace amount of free fluid within the pelvis IMPRESSION: 1. No acute intracranial abnormality is seen. 2. A cervical fracture is not visualized. If the patient continues have symptoms to suggest intracranial/spinal cord pathology MRI be recommended 3. No traumatic abnormality involving the chest 4. Mild acute compression fractures T12 and L3 vertebral bodies EXAM DESCRIPTION: [facility] Single View05/17/2020 8:19 am CLINICAL HISTORY: Chest pain COMPARISON: July 2019 FINDINGS: The lungs appear clear of acute infiltrate. The heart is mildly enlarged. Postsurgical changes involve the chest. IMPRESSION: No acute abnormalities displayed Conclusions/Impression: A/ OSCAR in the setting of hypovolemia, worse. HTN uncontrolled DM II GI bleed. P/ Continue current POC and Medications Increase IVF. Increase Metoprolol BID due to tachycardia. Follow up with GI. Transfuse PRBC as needed. No NSAIDs. AM labs. Daily weight.
[2020-05-20] MEDS: METOPROLOL XL 50 MG TAB PO SCH (21:16)
[2020-05-20] MEDS ORDERED: KCL 20 MEQ/100 mL IVPB 20 MEQ/100 ML BAG IV ONE (21:35)
[2020-05-20] MEDS ORDERED: NACHLORIDE 0.45% 1,000 ML IV ONE (21:36)
[2020-05-20] MEDS ORDERED: D5W 250 ML IV SCH (22:00)
[2020-05-20] MEDS: NACHLORIDE 0.45% 1,000 ML with POTASSIUM CL 20 MEQ IV SCH ×2 (23:00)
[2020-05-21] MEDS: PANTOPRAZOLE INJ 80 MG in NA CHLORIDE 0.9% 250 ML IV SCH ×2 (02:00→04:46)
[2020-05-21] MEDS: IPRATROPIUM BROM 0.5MG/2.5ML NEB SCH ×4 (02:10→20:10)
[2020-05-21] MEDS: ALBUTEROL 2.5 MG/3 ML NEB SOL NEB SCH ×4 (02:10→20:10)
[2020-05-21] MEDS: HYDROMORPHONE HCL 0.5 MG/0.5 ML INJ IV PRN ×3 (02:52→11:48)
[2020-05-21] MEDS: ONDANSETRON 4 MG/2 ML VIAL IV PRN ×3 (02:52→18:06)
[2020-05-21] MEDS: HYDRALAZINE HCL 20 MG/ML VIAL IV PRN ×2 (04:44→17:19)
[2020-05-21] MEDS: PROMETHAZINE INJ 25 MG/ML AMP IV PRN (06:35)
[2020-05-21 06:41] LABS: Absolute Lymphocytes (CBC) 0.8 K/uL (0.7-4.9); Basophils % 0.2 % (0-1.3); Hematocrit 24.1 % (39.6-49.0); Lymphocytes % 8.3 % (15.3-44.8); MPV 9.9 fL (7.6-11.3); RBC Red Blood Cell Count 3.61 M/uL (4.33-5.43)
[2020-05-21] MEDS: NACHLORIDE 0.45% 1,000 ML with POTASSIUM CL 20 MEQ IV SCH ×6 (07:06→17:21)
[2020-05-21 07:17] LABS: ALT/SGPT 26 U/L (12-78); AST/SGOT 21 U/L (15-37); Albumin 2.8 g/dL (3.4-5.0); Alkaline Phosphatase 51 U/L (45-117); BUN Blood Urea Nitrogen 38 mg/dL (7-18); Bicarbonate 23 mmol/L (21-32); Bilirubin Total 0.8 mg/dL (0.2-1.0); Folic Acid, (Folate) > 20.0 ng/mL (3.1-17.5); Glucose Level 226 mg/dL (74-106); Magnesium 2.3 mg/dL (1.8-2.4); Phosphorus 3.4 mg/dL (2.5-4.9); Potassium 3.5 mmol/L (3.5-5.1); Protein, Total 6.1 g/dL (6.4-8.2); Sodium Level 140 mmol/L (136-145)
[2020-05-21] MEDS ORDERED: POTASSIUM 25 MEQ EFFERV TAB PO ONE (08:00)
[2020-05-21] MEDS: PIPER/TAZO/NS 4.5gm 4.5 GM/100 ML BAG IVPB SCH ×2 (08:36→17:00)
[2020-05-21] MEDS: ENOXAPARIN 40 MG/0.4 ML SQ SCH (08:38)
[2020-05-21] MEDS: METOCLOPRAMIDE 10 MG/2mL INJ IV SCH ×3 (08:39→17:19)
[2020-05-21] MEDS: INSULIN -REGULAR HUMAN 50 UNIT/0.5 ML ML SQ SCH ×4 (08:39→21:51)
[2020-05-21] MEDS: CLOPIDOGREL 75 MG TABLET PO SCH (08:41)
[2020-05-21] MEDS: METOPROLOL XL 50 MG TAB PO SCH ×2 (08:41→21:48)
[2020-05-21] MEDS: GLUCERNA SHAKE 237 ML CAN PO SCH ×2 (08:41→21:00)
[2020-05-21] MEDS: ESCITALOPRAM 20 MG TAB PO SCH (08:41)
[2020-05-21] MEDS: DOXAZOSIN 2 MG TAB PO SCH ×2 (08:41→21:49)
[2020-05-21] MEDS ORDERED: METOPROLOL XL 50 MG TAB PO SCH (09:00)
[2020-05-21] MEDS: SOD FERRIC GLUC COMPLX/SUCROSE 125 MG in NA CHLORIDE 0.9% 100 ML IV SCH (11:45)
[2020-05-21] MEDS ORDERED: HYDROCORTISONE SUC 100 MG INJ IV ONE (12:11)
[2020-05-21 12:35] LABS: Absolute Lymphocytes (CBC) 0.7 K/uL (0.7-4.9); Basophils % 0.3 % (0-1.3); Hematocrit 23.1 % (39.6-49.0); Lymphocytes % 8.3 % (15.3-44.8); MPV 10.3 fL (7.6-11.3)
[2020-05-21] MEDS ORDERED: BISACODYL E.C. 5 MG TAB PO ONE (14:17)
--- NOTE | 2020-05-21 14:23 | P.PN ---
Subjective Date of Service: 05/20/20 Patient had upper GI series done. We are waiting for the studies to come back. At this time will continue with current plan of care. Patient is still really we can work on active physical therapy to work with the patient. Family does not want patient going to a fpc facility or in a nursing facility at this time. Their plan is to try to get him home. Patient will need to build his strength up and so gradually he will need to continue with aggressive measures. Review of Systems 10-point ROS is otherwise unremarkable Physical Examination - Vital Signs Temperature: 98.9 F Blood Pressure: 166/72 Pulse: 88 Respirations: 16 Pulse Ox (%): 97 - Physical Exam General: Alert, In no apparent distress, Oriented x3 Respiratory: Diminished, Crackles/rales Cardiovascular: Regular rate/rhythm, Normal S1 S2, Systolic murmur Gastrointestinal: Normal bowel sounds, Soft and benign, Non-distended, Tenderness Musculoskeletal: No clubbing, Swelling Neurological: Sensation intact, Cranial nerves 3-12 intact - Studies Medications List Reviewed: Yes Assessment & Plan - Problems (Diagnosis) (1) Syncope and collapse Current Visit: Yes Status: Acute (2) Bradycardia Current Visit: Yes Status: Acute (3) GI bleed Current Visit: Yes Status: Acute (4) Cardiomyopathy Current Visit: Yes Status: Acute (5) Weight loss Current Visit: Yes Status: Acute (6) Depression Current Visit: No Status: Acute (7) Diabetes Current Visit: No Status: Acute (8) Weakness generalized Current Visit: No Status: Acute (9) Hypertension Onset Date: 11/05/16 Current Visit: No Status: Chronic Qualifiers: Hypertension type: essential hypertension Qualified Code(s): I10 - Essential (primary) hypertension (10) Anorexia Current Visit: Yes Status: Acute (11) Cachexia Current Visit: Yes Status: Acute (12) Generalized weakness Current Visit: Yes Status: Acute - Plan Plan: Continue with plan of care as mentioned below: 1. Continue with gentle IV hydration; continue with PPI orally 2. Echocardiogram revealed ejection fraction of 40% which is improved from before; monitor volume status closely. Patient remains anemic and will need to correct his anemia a little bit more prior to discharging. He also needs to get his strength built. We are working with physical therapy to try to assist in that. Family does not want go to a nursing facility so we definitely need to try to get the strength built up here in the hospital prior to discharge. Otherwise he will be a readmission. 3. Continue with pain control 4. Advanced diet per speech therapy recommendations 5. Appreciate software consultant's recommendation 6. Continue monitoring labs closely 7. Appreciate physical therapy and speech therapy evaluation 8. GI and DVT prophylaxis Discharge Plan: Home Plan to discharge in: 48 Hours - Advance Directives Does patient have a Living Will: No Does patient have a Durable POA for Healthcare: No - Code Status/Comfort Care Code Status: Full Code Critical Care: No Time Spent Managing PTS Care (In Minutes): 35
--- NOTE | 2020-05-21 14:29 | P.PN ---
Subjective Date of Service: 05/21/20 Patient is seen more awake and alert today. He was able to drink his GoLYTELY. He did not have any nausea or vomiting. Patient's strength is improving as he actually was able to get OOB and ambulate to bedside commode where before he had never once gotten out of bed during the hospital stay even while working with physical therapy. They actually with sit him up and he would say he considered up after 1 minutes. Will speak with physical therapy and encourage patient to start doing more with his activity level. Hopefully, he will start improving his dietary intake if his endoscopy results are negative. If they are negative and he still is not eating well I have talked to the about a feeding tube. We also did talk during the hospital stay about nursing facility placement and she absolutely does not want him going to any correction. We can do a rehab evaluation for cardiomyopathy and generalized weakness.. Review of Systems 10-point ROS is otherwise unremarkable Physical Examination - Vital Signs Temperature: 98.9 F Blood Pressure: 166/72 Pulse: 88 Respirations: 16 Pulse Ox (%): 97 - Physical Exam General: Alert, In no apparent distress, Oriented x3 Respiratory: Diminished, Crackles/rales Cardiovascular: Regular rate/rhythm, Normal S1 S2, Systolic murmur Gastrointestinal: Normal bowel sounds, Soft and benign, Non-distended, No tenderness Musculoskeletal: No clubbing, Swelling, Tenderness Neurological: Sensation intact, Cranial nerves 3-12 intact Lymphatics: No axilla or inguinal lymphadenopathy - Studies Medications List Reviewed: Yes Assessment & Plan - Problems (Diagnosis) (1) Syncope and collapse Current Visit: Yes Status: Acute (2) Bradycardia Current Visit: Yes Status: Acute (3) GI bleed Current Visit: Yes Status: Acute (4) Cardiomyopathy Current Visit: Yes Status: Acute (5) Weight loss Current Visit: Yes Status: Acute (6) Depression Current Visit: No Status: Acute (7) Diabetes Current Visit: No Status: Acute (8) Weakness generalized Current Visit: No Status: Acute (9) Hypertension Onset Date: 11/05/16 Current Visit: No Status: Chronic Qualifiers: Hypertension type: essential hypertension Qualified Code(s): I10 - Essential (primary) hypertension (10) Anorexia Current Visit: Yes Status: Acute (11) Cachexia Current Visit: Yes Status: Acute (12) Generalized weakness Current Visit: Yes Status: Acute - Plan Plan: Continue with plan of care as mentioned below: 1. Hep-Lock IV if his diet improves and endoscopy results are unremarkable.continue with PPI orally 2. Echocardiogram revealed ejection fraction of 40% which is improved from before; monitor volume status closely. Patient remains anemic and will need to correct his anemia a little bit more prior to discharging. Continue with iron supplementation. He has been given a total of 2 units of packed red blood cells. He also needs to get his strength built. We are working with physical th lynsey to try to assist in that. Family does not want go to a nursing facility so we definitely need to try to get the strength built up here in the hospital prior to discharge. Otherwise he will be a readmission. 3. Holding all pain medications and sedatives until he starts eating better and doing more with physical therapy 4. Advanced diet per speech therapy recommendations 5. Appreciate netsuite consultant's recommendation 6. Continue monitoring labs closely 7. GI and DVT prophylaxis Discharge Plan: Home Plan to discharge in: 48 Hours - Advance Directives Does patient have a Living Will: No Does patient have a Durable POA for Healthcare: No - Code Status/Comfort Care Code Status: Full Code Critical Care: No Time Spent Managing PTS Care (In Minutes): 35
[2020-05-21] MEDS ORDERED: NA CHLORIDE 0.9% 250 ML ONE (17:06)
[2020-05-21] MEDS ORDERED: FUROSEMIDE 40 MG/4 ML VIAL IV SCH (18:00)
[2020-05-21] MEDS: GOLYTELY 4000 ML PO SCH (18:44)
[2020-05-21] MEDS: ATORVASTATIN 80 MG TAB PO SCH (21:48)
[2020-05-21] MEDS: HYDRALAZINE HCL 25 MG TABLET PO SCH (21:48)
[2020-05-21] MEDS: TAMSULOSIN 0.4 MG SR CAP PO SCH (21:50)
[2020-05-21 23:08] LABS: Hematocrit 26.9 % (39.6-49.0)
[2020-05-21] MEDS ORDERED: MORPHINE 2 MG/ML SYR IV ONE (23:57)
[2020-05-22] MEDS: IPRATROPIUM BROM 0.5MG/2.5ML NEB SCH ×4 (01:40→20:45)
[2020-05-22] MEDS: ALBUTEROL 2.5 MG/3 ML NEB SOL NEB SCH ×4 (01:40→20:45)
[2020-05-22 06:08] LABS: Absolute Lymphocytes (CBC) 0.7 K/uL (0.7-4.9); Basophils % 0.3 % (0-1.3); Hematocrit 25.7 % (39.6-49.0); MPV 10.7 fL (7.6-11.3); RBC Red Blood Cell Count 3.77 M/uL (4.33-5.43)
[2020-05-22] MEDS: HYDRALAZINE HCL 20 MG/ML VIAL IV PRN (06:26)
[2020-05-22 06:50] LABS: Albumin 2.6 g/dL (3.4-5.0); Bilirubin Total 0.7 mg/dL (0.2-1.0); Ferritin 1391.9 ng/mL (26-388); Folic Acid, (Folate) 19.4 ng/mL (3.1-17.5); Magnesium 2.1 mg/dL (1.8-2.4); Phosphorus 2.1 mg/dL (2.5-4.9); Protein, Total 5.6 g/dL (6.4-8.2); Thyroid Stimulating Hormone 1.25 uIU/mL (0.360-3.740)
[2020-05-22] MEDS: INSULIN -REGULAR HUMAN 50 UNIT/0.5 ML ML SQ SCH ×4 (07:30→21:00)
[2020-05-22] MEDS ORDERED: POTASSIUM PHOS 30 MM in NS 500 ML IV ONE (08:00)
[2020-05-22] MEDS: DOXAZOSIN 2 MG TAB PO SCH ×2 (08:30→21:10)
[2020-05-22] MEDS: GLUCERNA SHAKE 237 ML CAN PO SCH ×2 (08:31→21:00)
[2020-05-22] MEDS: ENOXAPARIN 40 MG/0.4 ML SQ SCH (08:31)
[2020-05-22] MEDS: ESCITALOPRAM 20 MG TAB PO SCH (08:31)
[2020-05-22] MEDS: HYDRALAZINE HCL 25 MG TABLET PO SCH ×3 (08:31→21:11)
[2020-05-22] MEDS: METOPROLOL XL 50 MG TAB PO SCH ×2 (08:31→21:10)
[2020-05-22] MEDS: PANTOPRAZOLE 40 MG INJ IVP SCH (08:31)
[2020-05-22] MEDS: CLOPIDOGREL 75 MG TABLET PO SCH (08:32)
[2020-05-22] MEDS: SOD FERRIC GLUC COMPLX/SUCROSE 125 MG in NA CHLORIDE 0.9% 100 ML IV SCH (08:41)
[2020-05-22] MEDS: ACETAMINOPHEN 500 MG TAB PO PRN ×2 (09:04→21:17)
[2020-05-22] MEDS: GOLYTELY 4000 ML PO SCH (10:10)
--- NOTE | 2020-05-22 10:19 | RAD REPORT ---
EXAM DESCRIPTION: RAD - Chest Single View - 05/22/2020 7:12 am CLINICAL HISTORY: pneumonia Chest pain. COMPARISON: Chest Single View dated 05/18/2020; Chest Single View dated 05/17/2020; Chest Single View dated 07/18/2019; Chest Single View dated 07/03/2019; Chest Abd Pelvis Wo Con dated 05/18/2020 FINDINGS: Portable technique limits examination quality. Elevated left hemidiaphragm is noted with atelectasis or mild infiltrate in the left lung base, uncha nged. The heart is normal in size. Sternotomy wires are present IMPRESSION: Stable chest since 05/18/2020.
--- NOTE | 2020-05-22 10:21 | RAD REPORT ---
EXAM DESCRIPTION: RAD - Upper GI W/ Sm Bowel - 05/20/2020 4:09 pm CLINICAL HISTORY: intractable nausea and vomiting and GI bleed Abdominal pain COMPARISON: No comparisons FINDINGS: Examination was quite limited by the patient's clinical status. Swallowing mechanism was within normal limits. Moderate gastroesophageal reflux was seen. Only a limited amount of contrast could be ingested by the patient without vomiting. Stomach wall appears mildly thickened without polypoid defect. Proximal small bowel is poorly elucida tennille due to limited contrast ingestion by the patient, however without bowel obstruction seen. IMPRESSION: Moderate gastroesophageal reflux. Stomach wall thickening without polypoid defect. Gastritis is a possibility. Fluoroscopy time: 0.4 minutes. Total images obtained: 14.
[2020-05-22] MEDS ORDERED: POTASSIUM PHOS 30 MM in NA CHLORIDE 0.9% 500 ML IV ONE (12:36)
--- NOTE | 2020-05-22 14:57 | PN ---
Date of Progress Note: 05/22/2020 Subjective: The patient was seen and examined. He is awaiting colonoscopy. His is at bedside and she is reporting excessive bowel movements from the colonoscopy prep. Physical Examination: Vital Signs: At this time have been reviewed and seem to be stable. General: He appears cachectic, weak, and malnourished. HEENT: Atraumatic head. Lungs: Auscultation of the lungs revealed bilateral equal air entry. Abdomen: Soft and nontender. Extremities: Showed no evidence of edema. Laboratory Data: Showing sodium of 144, potassium of 3, chloride of 109, BUN of 36 and creatinine of 1.9, calcium of 8.4, phosphorus was low at 2.1, albumin was low at 2.6. CBC showing hemoglobin of 8 .5, hematocrit of 25.7, and platelet count of 178. Current Medications: Have been reviewed in detail. Impression: 1.Acute on chronic renal insufficiency, currently with improving renal function, secondary to hypovo lemia. 2.Hypokalemia. 3.Hypertension. 4.Gastrointestinal bleed with anemia, getting worked up. 5.Type 2 diabetes. 6.Electrolyte abnormalities including hypophosphatemia secondary to poor p.o. intake. Plan: The patient is overall clinically stable; however, he has multiple electrolyte abnormalities. His potassium is being replaced and phosphorus is being replaced, and repeat phosphorus levels are s till pending at this time. Renal function, however, seems to be improving with IV hydration. Contin ue to follow up closely after colonoscopy tomorrow. IV fluids can possibly be discharged and he can be encouraged p.o. intake of food. Continue all other medications the same. Avoid further hypotension and nephrotoxins. We will follow up closely. ETHEL/ERLIN Voice ID: [id number] Report ID: [id number]
[2020-05-22] MEDS ORDERED: HYDROCORTISONE SUC 100 MG INJ IV ONE (15:14)
--- NOTE | 2020-05-22 15:22 | P.PN ---
Subjective Date of Service: 05/22/20 Patient overall is feeling better. According to the nursing staff he got up out of bed and went to the bedside commode. He was able to get up on his own without any difficulty. He is scheduled for a colonoscopy today. We need to encourage his nutrition. Also need to encourage him to do more with physical therapy. If his nutrition does not improve then he may need a feeding tube. If it does improve we need to get his strength improved with physical therapy. Monitor his H&H closely. Review of Systems 10-point ROS is otherwise unremarkable Physical Examination - Vital Signs Temperature: 98.5 F Blood Pressure: 138/83 Pulse: 90 Respirations: 18 Pulse Ox (%): 95 - Physical Exam General: Alert, In no apparent distress, Oriented x3 Respiratory: Diminished, Crackles/rales Cardiovascular: Regular rate/rhythm, Normal S1 S2, Systolic murmur Gastrointestinal: Normal bowel sounds, Soft and benign, Non-distended, No tenderness, No rebound, No guarding Musculoskeletal: No clubbing, No tenderness, Swelling Neurological: Abnormal strength, Abnormal cranial nerve function - Studies Medications List Reviewed: Yes Assessment & Plan - Problems (Diagnosis) (1) Syncope and collapse Current Visit: Yes Status: Acute (2) Bradycardia Current Visit: Yes Status: Acute (3) GI bleed Current Visit: Yes Status: Acute (4) Cardiomyopathy Current Visit: Yes Status: Acute (5) Weight loss Current Visit: Yes Status: Acute (6) Depression Current Visit: No Status: Acute (7) Diabetes Current Visit: No Status: Acute (8) Weakness generalized Current Visit: No Status: Acute (9) Hypertension Onset Date: 11/05/16 Current Visit: No Status: Chronic Qualifiers: Hypertension type: essential hypertension Qualified Code(s): I10 - Essential (primary) hypertension (10) Anorexia Current Visit: Yes Status: Acute (11) Cachexia Current Visit: Yes Status: Acute - Plan Plan: Continue with plan of care as mentioned below: 1. Continue with gentle IV hydration; once he starts improving then we will Dc the IV fluids. He may need a PEG tube placed until appetite improves. Continue with PPI orally. Upper GI with moderate gastroesophageal reflux disease 2. Echocardiogram revealed ejection fraction of 40% which is improved from before; monitor volume status closely. Patient remains anemic. Monitor H&H closely. 3. He also needs to get his strength built. We are working with physical therapy to try to assist in that. Family does not want go to a nursing facility so we definitely need to try to get the strength built up here in the hospital prior to discharge. 4. We have held any medication that can make him sedated. He needs to get up out of bed and start doing more with physical activity. 5. Appreciate speech therapy recommendations. He needs to increase his caloric intake. 6. Renal function continues to improve. Appreciate Nephrology assistance 7. Continue monitoring electrolytes closely 8. Appreciate physical therapy and speech therapy evaluation 9. GI and DVT prophylaxis - Advance Directives Does patient have a Living Will: No Does patient have a Durable POA for Healthcare: No - Code Status/Comfort Care Code Status: Full Code
[2020-05-22 15:38] LABS: Phosphorus 3.9 mg/dL (2.5-4.9); Potassium 3.2 mmol/L (3.5-5.1)
[2020-05-22] MEDS ORDERED: propofoL 200 MG/20 ML VIAL IV ONE ×3 (17:46→17:47)
[2020-05-22] MEDS ORDERED: LIDOCAINE 1% MPF 5 ML VIAL ONE (17:47)
[2020-05-22] MEDS ORDERED: Ringers Lactate 1,000 ML IV ONE (18:17)
[2020-05-22] MEDS: ATORVASTATIN 80 MG TAB PO SCH (21:10)
[2020-05-22] MEDS: TAMSULOSIN 0.4 MG SR CAP PO SCH (21:11)
[2020-05-23] MEDS: NACHLORIDE 0.45% 1,000 ML with POTASSIUM CL 20 MEQ IV SCH ×2 (00:35)
[2020-05-23] MEDS: HYDRALAZINE HCL 20 MG/ML VIAL IV PRN (00:38)
[2020-05-23] MEDS: IPRATROPIUM BROM 0.5MG/2.5ML NEB SCH ×4 (02:45→19:45)
[2020-05-23] MEDS: ALBUTEROL 2.5 MG/3 ML NEB SOL NEB SCH ×4 (02:45→19:45)
[2020-05-23 06:39] LABS: Absolute Lymphocytes (CBC) 0.8 K/uL (0.7-4.9); Basophils % 0.3 % (0-1.3); Hematocrit 27.2 % (39.6-49.0); Lymphocytes % 9.1 % (15.3-44.8); MPV 10.3 fL (7.6-11.3); RBC Red Blood Cell Count 3.99 M/uL (4.33-5.43)
[2020-05-23 07:24] LABS: Albumin 2.3 g/dL (3.4-5.0); Bilirubin Total 0.6 mg/dL (0.2-1.0); Magnesium 2.2 mg/dL (1.8-2.4); Phosphorus 4.9 mg/dL (2.5-4.9); Potassium 3.4 mmol/L (3.5-5.1); Protein, Total 5.3 g/dL (6.4-8.2)
[2020-05-23] MEDS: INSULIN -REGULAR HUMAN 50 UNIT/0.5 ML ML SQ SCH ×4 (07:30→21:46)
[2020-05-23 07:31] LABS: Anisocytosis 1+; Blood Morphology Comment NOTED (NOT SEEN); Platelet Estimate ADEQ; White Blood Cell Scan OK (OK)
[2020-05-23] MEDS: GLUCERNA SHAKE 237 ML CAN PO SCH ×3 (09:00→21:29)
[2020-05-23] MEDS: PANTOPRAZOLE 40 MG INJ IVP SCH (09:07)
[2020-05-23] MEDS: CLOPIDOGREL 75 MG TABLET PO SCH (09:07)
[2020-05-23] MEDS: ESCITALOPRAM 20 MG TAB PO SCH (09:07)
[2020-05-23] MEDS: HYDRALAZINE HCL 25 MG TABLET PO SCH ×3 (09:07→21:28)
[2020-05-23] MEDS: METOPROLOL XL 50 MG TAB PO SCH ×2 (09:07→21:28)
[2020-05-23] MEDS: ENOXAPARIN 40 MG/0.4 ML SQ SCH (09:07)
[2020-05-23] MEDS: DOXAZOSIN 2 MG TAB PO SCH ×2 (09:07→21:28)
[2020-05-23] MEDS: ACETAMINOPHEN 500 MG TAB PO PRN ×3 (09:08→18:31)
[2020-05-23] MEDS: SOD FERRIC GLUC COMPLX/SUCROSE 125 MG in NA CHLORIDE 0.9% 100 ML IV SCH (09:08)
[2020-05-23] MEDS ORDERED: POTASSIUM CL SA 10 MEQ TAB PO ONE (11:00)
[2020-05-23] MEDS: GOLYTELY 4000 ML PO SCH (13:43)
--- NOTE | 2020-05-23 13:45 | P.PN ---
Subjective Date of Service: 05/23/20 Primary Care Provider: Dr. Santo Chief Complaint: Fall injury, coffee-ground emesis, anemia Subjective: Doing well Physical Examination - Vital Signs Temperature: 98.1 F Blood Pressure: 184/83 Pulse: 84 Respirations: 19 Pulse Ox (%): 98 - Physical Exam General: Alert, Cooperative HEENT: Atraumatic Neck: Supple Respiratory: Clear to auscultation bilaterally, Normal air movement Cardiovascular: Normal pulses, Regular rate/rhythm Gastrointestinal: Normal bowel sounds, Soft and benign, Non-distended Neurological: Normal speech, Normal strength at 5/5 x4 extr, Normal tone, Normal affect - Studies Medications List Reviewed: Yes Assessment & Plan Discharge Plan: Other (Home with home health at discharge vers care nursing facility) Plan to discharge in: 48 Hours Physician Review Additional Text: Impression: Syncope with bradycardia Acute on chronic renal disease stage III Anemia suspect upper GI bleed with noted GERD Chronic systolic CHF Diabetes mellitus type 2 Depression with anxiety Hypertension Anorexia with poor oral intake BPH Hyperlipidemia Plan: Syncope with bradycardia: Likely from anemia. Hemoglobin stable this time. Will monitor this closely. Electrolytes being replaced. Will discuss with GI on EGD colonoscopy findings. Physical therapy to assess ambulation. Still with poor ambulation. Family desires patient to go home at discharge. Will need to consider skilled placement if no significant improvement or change. Will monitor calorie count. Dietary consulted to help with daily needs. Will discuss with family and certified social workers in health care for plan of care. Acute on chronic renal disease stage III: Continue with Nephrology re commendations. Anemia suspect upper GI bleed with noted GERD: Hemoglobin stable. Will monitor this closely. Will discuss with GI. Chronic systolic CHF: Will monitor this closely. Patient given Lasix after transfusion. Will monitor this closely. Diabetes mellitus type 2: Sliding scale in place. Will check A1c. Accu-Cheks to be monitored closely. Depression with anxiety: Continue medication. Hypertension: Continue to adjust medication for better control. Anorexia with poor oral intake: Dietary to assess daily needs. Will check calorie count. Hyperlipidemia: Continue medication BPH: Continue medication Time Spent Managing Pts Care (In Minutes): 55
[2020-05-23] MEDS: ONDANSETRON 4 MG/2 ML VIAL IV PRN ×2 (13:46→21:28)
--- NOTE | 2020-05-23 20:53 | P.PN ---
Date of Service: 05/23/20 Vital Signs Temp Pulse Resp BP Pulse Ox 98.3 F 84 18 154/74 H 95 05/23/20 16:00 05/23/20 16:00 05/23/20 16:00 05/23/20 16:00 05/23/20 16:00 Medications Acetaminophen (Tylenol -Extra Strength) 500 mg PO Q4HP PRN PRN Reason: Pain/fever Stop: 06/16/20 12:45 Last Admin: 05/23/20 18:31 Dose: 500 mg Documented by: Albuterol Sulfate (Proventil 0.083% Neb Soln) 2.5 mg NEB [id number] CANDELARIO Stop: 06/18/20 02:01 Last Admin: 05/23/20 14:24 Dose: 2.5 mg Documented by: Atorvastatin Calcium (Lipitor) 80 mg PO BEDTIME CANDELARIO Stop: 06/19/20 21:01 Last Admin: 05/22/20 21:10 Dose: 80 mg Documented by: Clopidogrel Bisulfate (Plavix) 75 mg PO DAILY [facility] Stop: 06/20/20 09:01 Last Admin: 05/23/20 09:07 Dose: 75 mg Documented by: Dextrose (Dextrose 50% Syringe/Vial) 12.5 gm IV PRN PRN; Protocol PRN Reason: HYPOGLYCEMIA Stop: 06/16/20 21:03 Doxazosin Mesylate (Cardura) 2 mg PO BID [facility] Stop: 06/18/20 21:01 Last Admin: 05/23/20 09:07 Dose: 2 mg Documented by: Enoxaparin Sodium (Lovenox 40 Mg Inj) 40 mg SQ DAILY [place] Stop: 06/17/20 09:01 Last Admin: 05/23/20 09:07 Dose: 40 mg Documented by: Enteral Nutritional Formula (Glucerna Shake) 237 ml PO BID [facility]DELAR[facility] Stop: 06/17/20 21:01 Last Admin: 05/23/20 09:00 Dose: 237 ml Documented by: Escitalopram Oxalate (Lexapro) 20 mg PO DAILY [facility] Stop: 06/20/20 09:01 Last Admin: 05/23/20 09:07 Dose: 20 mg Documented by: Furosemide (Lasix) 40 mg IV PRBCS [place] Stop: 06/20/20 18:01 Last Admin: 05/21/20 21:49 Dose: 40 mg Documented by: Glucagon (Glucagen) 1 mg IM 1X PRN; Protocol PRN Reason: HYPOGLYCEMIA Stop: 06/16/20 21:03 Hydralazine HCl (Apresoline) 10 mg IV Q4HP PRN PRN Reason: FOR SBP>160 OR DBP>100 MMHG Stop: 06/17/20 17:15 Last Admin: 05/23/20 00:38 Dose: 10 mg Documented by: Hydralazine HCl (Apresoline) 25 mg PO TID [facility] Stop: 06/20/20 21:01 Last Admin: 05/23/20 13:46 Dose: 25 mg Documented by: Ferric Sodium Gluconate Complex 125 mg/ Sodium Chloride 110 mls @ 100 mls/hr IV DAILY [facility] Stop: 05/26/20 10:05 Last Admin: 05/23/20 09:08 Dose: 110 mls Documented by: Potassium Chloride 20 meq/ (Sodium Chloride) 1,010 mls @ 30 mls/hr IV .[id number] [facility] Stop: 06/20/20 17:22 Last Admin: 05/23/20 00:35 Dose: 1,010 mls Documented by: Insulin Human Regular (Novolin -R) 0 unit SQ ACHS [facility]; Protocol Stop: 06/18/20 21:20 Last Admin: 05/23/20 17:22 Dose: 2 unit Documented by: Ipratropium Heber (Atrovent Neb) 0.5 mg NEB [id number] [facility] Stop: 06/18/20 20:55 Last Admin: 05/23/20 14:24 Dose: 0.5 mg Documented by: Metoprolol Succinate (Toprol Xl) 50 mg PO BID [facility] Stop: 06/19/20 21:06 Last Admin: 05/23/20 09:07 Dose: 50 mg Documented by: Ondansetron HCl (Zofran) 4 mg IV Q6HP PRN PRN Reason: NAUSEA / VOMITING Stop: 06/16/20 12:45 Last Admin: 05/23/20 13:46 Dose: 4 mg Documented by: Pantoprazole Sodium (Protonix Inj) 40 mg IVP DAILY [facility]; Protocol Stop: 06/21/20 09:01 Last Admin: 05/23/20 09:07 Dose: 40 mg Documented by: Polyethylene Glycol/Electrolytes (Nu-Lytely) 4,000 ml PO 1X [facility] Stop: 06/20/20 14:01 Last Admin: 05/23/20 13:43 Dose: Not Given Documented by: Sodium Chloride (Normal Saline Flush) 10 ml IV BID [place] Stop: 06/16/20 21:01 Last Admin: 05/23/20 20:41 Dose: Not Given Documented by: Tamsulosin HCl (Flomax) 0.4 mg PO BEDTIME [place] Stop: 06/18/20 21:01 Last Admin: 05/22/20 21:11 Dose: 0.4 mg Documented by: Microbiology Results 05/17/20 11:09 Nasopharnyx Influenza Type A Antigen Screen - Final 05/17/20 11:09 Nasopharnyx Influenza Type B Antigen Screen - Final Assessment/ Plan: Nephrology CPS stable without CP or SOB. No acute events overnight. Nausea and malaise. Vitals, medications, blood work and imaging reviewed in the chart. NAD. MMM. Neck supple. CTA. RRR. Soft Abd. No C/C/E. No rash. AAO. Normal Speech. 05/17/20 07:47: PT 11.8, INR 1.00, APTT 26.8 05/17/20 07:47: WBC 14.5 H, Hgb 8.2 L, Hct 24.9 L, Plt Count 198 05/17/20 07:47: Sodium 142, Potassium 3.7, BUN 46 H, Creatinine 1.83 H, Glucose 150 H, Total Bilirubin 0.9, AST 33, ALT 44, Alkaline Phosphatase 67, Lipase 86 Imagings Data: EXAM DESCRIPTION: CT - Head C Spine Cap Wo Con - 05/17/2020 8:12 am TECHNIQUE: Computed axial tomography of the head and cervical spine was obtained. Coronal and sagittal reconstruction was performed Computed axial tomography of the chest, abdomen and pelvis was obtained. Contrast was not requested. All CT scans are performed using dose optimization technique as appropriate and may include automated exposure control or mA/KV adjustment according to patient size. CLINICAL HISTORY: Head and neck injury with chest and abdominal pain status post fall COMPARISON: CT chest 2018 FINDINGS: An intracranial bleed is not seen. Low-density within the right internal capsule/basal ganglia has the appearance of an old lacunar infarction. 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 The ventricles are normal in caliber. An extra-axial fluid collection is not noted. . Opacification of the left mastoid. This may indicate mastoiditis and should be correlated clinically. A cervical fracture is not seen. No dislocation is noted. Spondylosis involves the cervical spine resulting central and foraminal stenosis The evaluation of mediastinum, tiffany, vessels, solid organs and bowel are limited secondary to the lack of contrast administration. A mediastinal hematoma is not noted. A pleural effusion is not seen. A lung contusion is not present. The liver,spleen, pancreas, adrenals,kidneys and bladder the do not demonstrate a traumatic injury Right renal cyst Mild acute compression fracture T12 vertebral body. Minimal retropulsion of fracture fragment into the spinal canal. The vertebral body is approximately 87% normal height Mild acute compression fracture L3 vertebral body. Vertebral body is approximately 85% normal height Trace amount of free fluid within the pelvis IMPRESSION: 1. No acute intracranial abnormality is seen. 2. A cervical fracture is not visualized. If the patient continues have symptoms to suggest intracranial/spinal cord pathology MRI be recommended 3. No traumatic abnormality involving the chest 4. Mild acute compression fractures T12 and L3 vertebral bodies EXAM DESCRIPTION: [facility] Single View05/17/2020 8:19 am CLINICAL HISTORY: Chest pain COMPARISON: July 2019 FINDINGS: The lungs appear clear of acute infiltrate. The heart is mildly enlarged. Postsurgical changes involve the chest. IMPRESSION: No acute abnormalities displayed Conclusions/Impression: A/ OSCAR in the setting of hypovolemia, worse. HTN uncontrolled DM II GI bleed. P/ Continue current POC and Medications Gentle IVF. Replete lytes. Follow up with GI. Transfuse PRBC as needed. Encourage nutrition as tolerated. No NSAIDs. AM labs. Daily weight.
[2020-05-23] MEDS: ATORVASTATIN 80 MG TAB PO SCH (21:28)
[2020-05-23] MEDS: TAMSULOSIN 0.4 MG SR CAP PO SCH (21:28)
[2020-05-23] MEDS: CODEINE 30MG/APAP 300MG TAB PO PRN (21:46)
[2020-05-24] MEDS: HYDRALAZINE HCL 20 MG/ML VIAL IV PRN (00:36)
[2020-05-24] MEDS: ACETAMINOPHEN 500 MG TAB PO PRN (00:42)
[2020-05-24] MEDS: IPRATROPIUM BROM 0.5MG/2.5ML NEB SCH ×4 (01:15→20:00)
[2020-05-24] MEDS: ALBUTEROL 2.5 MG/3 ML NEB SOL NEB SCH ×4 (01:15→20:00)
[2020-05-24 04:07] LABS: Absolute Lymphocytes (CBC) 0.7 K/uL (0.7-4.9); Basophils % 0.2 % (0-1.3); Hematocrit 25.2 % (39.6-49.0); Lymphocytes % 8.5 % (15.3-44.8); MPV 9.8 fL (7.6-11.3); RBC Red Blood Cell Count 3.72 M/uL (4.33-5.43)
[2020-05-24 04:25] LABS: Magnesium 2.2 mg/dL (1.8-2.4); Potassium 3.4 mmol/L (3.5-5.1)
--- NOTE | 2020-05-24 07:14 | P.PN ---
Date of Service: 05/24/20 Vital Signs Temp Pulse Resp BP Pulse Ox 97.3 F 78 18 160/74 H 97 05/24/20 04:00 05/24/20 04:00 05/24/20 04:00 05/24/20 04:00 05/24/20 04:00 Medications Acetaminophen (Tylenol -Extra Strength) 500 mg PO Q4HP PRN PRN Reason: Pain/fever Stop: 06/16/20 12:45 Last Admin: 05/24/20 00:42 Dose: 500 mg Documented by: Acetaminophen/Codeine Phosphate (Tylenol W/Codeine #3 Tab) 1 tab PO Q6H PRN PRN Reason: Pain scale 5-7 (Moderate) Stop: 06/22/20 21:31 Last Admin: 05/23/20 21:46 Dose: 1 tab Documented by: Albuterol Sulfate (Proventil 0.083% Neb Soln) 2.5 mg NEB [id number] CANDELARIO Stop: 06/18/20 02:01 Last Admin: 05/24/20 01:15 Dose: 2.5 mg Documented by: Atorvastatin Calcium (Lipitor) 80 mg PO BEDTIME CANDELARIO Stop: 06/19/20 21:01 Last Admin: 05/23/20 21:28 Dose: 80 mg Documented by: Clopidogrel Bisulfate (Plavix) 75 mg PO DAILY CANDELARIO Stop: 06/20/20 09:01 Last Admin: 05/23/20 09:07 Dose: 75 mg Documented by: Dextrose (Dextrose 50% Syringe/Vial) 12.5 gm IV PRN PRN; Protocol PRN Reason: HYPOGLYCEMIA Stop: 06/16/20 21:03 Doxazosin Mesylate (Cardura) 2 mg PO BID PENDING SALE TO [facility] Stop: 06/18/20 21:01 Last Admin: 05/23/20 21:28 Dose: 2 mg Documented by: Enoxaparin Sodium (Lovenox 40 Mg Inj) 40 mg SQ DAILY CANDELARIO Stop: 06/17/20 09:01 Last Admin: 05/23/20 09:07 Dose: 40 mg Documented by: Enteral Nutritional Formula (Glucerna Sebas) 237 ml PO BID CANDELARIO Stop: 06/17/20 21:01 Last Admin: 05/23/20 21:00 Dose: Not Given Documented by: Escitalopram Oxalate (Lexapro) 20 mg PO DAILY PENDING SALE TO [facility] Stop: 06/20/20 09:01 Last Admin: 05/23/20 09:07 Dose: 20 mg Documented by: Furosemide (Lasix) 40 mg IV PRBCS CANDELARIO Stop: 06/20/20 18:01 Last Admin: 05/21/20 21:49 Dose: 40 mg Documented by: Glucagon (Glucagen) 1 mg IM 1X PRN; Protocol PRN Reason: HYPOGLYCEMIA Stop: 06/16/20 21:03 Hydralazine HCl (Apresoline) 10 mg IV Q4HP PRN PRN Reason: FOR SBP>160 OR DBP>100 MMHG Stop: 06/17/20 17:15 Last Admin: 05/24/20 00:36 Dose: 10 mg Documented by: Hydralazine HCl (Apresoline) 25 mg PO TID PENDING SALE TO [facility] Stop: 06/20/20 21:01 Last Admin: 05/23/20 21:28 Dose: 25 mg Documented by: Ferric Sodium Gluconate Complex 125 mg/ Sodium Chloride 110 mls @ 100 mls/hr IV DAILY PENDING SALE TO [facility] Stop: 05/26/20 10:05 Last Admin: 05/23/20 09:08 Dose: 110 mls Documented by: Insulin Human Regular (Novolin -R) 0 unit SQ ACHS PENDING SALE TO [facility]; Protocol Stop: 06/18/20 21:20 Last Admin: 05/23/20 21:46 Dose: 2 unit Documented by: Ipratropium Ransom (Atrovent Neb) 0.5 mg NEB [id number] PENDING SALE TO [facility] Stop: 06/18/20 20:55 Last Admin: 05/24/20 01:15 Dose: 0.5 mg Documented by: Metoprolol Succinate (Toprol Xl) 50 mg PO BID PENDING SALE TO [facility] Stop: 06/19/20 21:06 Last Admin: 05/23/20 21:28 Dose: 50 mg Documented by: Ondansetron HCl (Zofran) 4 mg IV Q6HP PRN PRN Reason: NAUSEA / VOMITING Stop: 06/16/20 12:45 Last Admin: 05/23/20 21:28 Dose: 4 mg Documented by: Pantoprazole Sodium (Protonix Inj) 40 mg IVP DAILY PENDING SALE TO [facility]; Protocol Stop: 06/21/20 09:01 Last Admin: 05/23/20 09:07 Dose: 40 mg Documented by: Polyethylene Glycol/Electrolytes (Nu-Lytely) 4,000 ml PO 1X [place]IO Stop: 06/20/20 14:01 Last Admin: 05/23/20 13:43 Dose: Not Given Documented by: Potassium Chloride (Klor-Con 10 Meq Tab) 40 meq PO 1X ONE Stop: 05/24/20 09:01 Sodium Chloride (Normal Saline Flush) 10 ml IV BID [place]IO Stop: 06/16/20 21:01 Last Admin: 05/23/20 20:41 Dose: Not Given Documented by: Tamsulosin HCl (Flomax) 0.4 mg PO BEDTIME CANDELARIO Stop: 06/18/20 21:01 Last Admin: 05/23/20 21:28 Dose: 0.4 mg Documented by: Microbiology Results 05/17/20 11:09 Nasopharnyx Influenza Type A Antigen Screen - Final 05/17/20 11:09 Nasopharnyx Influenza Type B Antigen Screen - Final Assessment/ Plan: Nephrology CPS stable without CP or SOB. No acute events overnight. Nausea and malaise. Vitals, medications, blood work and imaging reviewed in the chart. NAD. MMM. Neck supple. CTA. RRR. Soft Abd. No C/C/E. No rash. AAO. Normal Speech. 05/17/20 07:47: PT 11.8, INR 1.00, APTT 26.8 05/17/20 07:47: WBC 14.5 H, Hgb 8.2 L, Hct 24.9 L, Plt Count 198 05/17/20 07:47: Sodium 142, Potassium 3.7, BUN 46 H, Creatinine 1.83 H, Glucose 150 H, Total Bilirubin 0.9, AST 33, ALT 44, Alkaline Phosphatase 67, Lipase 86 Imagings Data: EXAM DESCRIPTION: CT - Head C Spine Cap Wo Con - 05/17/2020 8:12 am TECHNIQUE: Computed axial tomography of the head and cervical spine was obtained. Coronal and sagittal reconstruction was performed Computed axial tomography of the chest, abdomen and pelvis was obtained. Contrast was not requested. All CT scans are performed using dose optimization technique as appropriate and may include automated exposure control or mA/KV adjustment according to patient size. CLINICAL HISTORY: Head and neck injury with chest and abdominal pain status post fall COMPARISON: CT chest 2019 FINDINGS: An intracranial bleed is not seen. Low-density within the right internal capsule/basal ganglia has the appearance of an old lacunar infarction. 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 The ventricles are normal in caliber. An extra-axial fluid collection is not noted. . Opacification of the left mastoid. This may indicate mastoiditis and should be correlated clinically. A cervical fracture is not seen. No dislocation is noted. Spondylosis involves the cervical spine resulting central and foraminal stenosis The evaluation of mediastinum, tiffany, vessels, solid organs and bowel are limited secondary to the lack of contrast administration. A mediastinal hematoma is not noted. A pleural effusion is not seen. A lung contusion is not present. The liver,spleen, pancreas, adrenals,kidneys and bladder the do not demonstrate a traumatic injury Right renal cyst Mild acute compression fracture T12 vertebral body. Minimal retropulsion of fracture fragment into the spinal canal. The vertebral body is approximately 87% normal height Mild acute compression fracture L3 vertebral body. Vertebral body is approximately 85% normal height Trace amount of free fluid within the pelvis IMPRESSION: 1. No acute intracranial abnormality is seen. 2. A cervical fracture is not visualized. If the patient continues have symptoms to suggest intracranial/spinal cord pathology MRI be recommended 3. No traumatic abnormality involving the chest 4. Mild acute compression fractures T12 and L3 vertebral bodies EXAM DESCRIPTION: [facility] Single View05/17/2020 8:19 am CLINICAL HISTORY: Chest pain COMPARISON: July 2019 FINDINGS: The lungs appear clear of acute infiltrate. The heart is mildly enlarged. Postsurgical changes involve the chest. IMPRESSION: No acute abnormalities displayed Conclusions/Impression: A/ OSCAR in the setting of hypovolemia Hypokalemia HTN uncontrolled DM II GI bleed. P/ Continue current POC and Medications Stop IVF. Replete potassium. Start Vitamin D. Follow up with GI. Transfuse PRBC as needed. Encourage nutrition as tolerated. No NSAIDs. AM labs. Daily weight.
[2020-05-24] MEDS: INSULIN -REGULAR HUMAN 50 UNIT/0.5 ML ML SQ SCH ×4 (07:30→20:57)
[2020-05-24] MEDS: CALCITROL 0.25 MCG CAP PO SCH (08:02)
[2020-05-24] MEDS: CLOPIDOGREL 75 MG TABLET PO SCH (08:02)
[2020-05-24] MEDS: PANTOPRAZOLE 40 MG INJ IVP SCH (08:02)
[2020-05-24] MEDS: DOXAZOSIN 2 MG TAB PO SCH ×2 (08:03→20:58)
[2020-05-24] MEDS: HYDRALAZINE HCL 25 MG TABLET PO SCH ×3 (08:03→20:58)
[2020-05-24] MEDS: ESCITALOPRAM 20 MG TAB PO SCH (08:03)
[2020-05-24] MEDS: CODEINE 30MG/APAP 300MG TAB PO PRN ×3 (08:03→23:57)
[2020-05-24] MEDS: VITAMIN D 5,000 UNIT CAP PO SCH (08:03)
[2020-05-24] MEDS: ENOXAPARIN 40 MG/0.4 ML SQ SCH (08:04)
[2020-05-24] MEDS: GLUCERNA SHAKE 237 ML CAN PO SCH ×2 (08:04→21:00)
[2020-05-24] MEDS: METOPROLOL XL 50 MG TAB PO SCH ×2 (08:04→20:58)
[2020-05-24] MEDS ORDERED: POTASSIUM CL SA 10 MEQ TAB PO ONE (09:00)
[2020-05-24] MEDS: SOD FERRIC GLUC COMPLX/SUCROSE 125 MG in NA CHLORIDE 0.9% 100 ML IV SCH (09:40)
[2020-05-24] MEDS: ONDANSETRON 4 MG/2 ML VIAL IV PRN ×2 (09:41→16:33)
[2020-05-24] MEDS: GOLYTELY 4000 ML PO SCH (14:00)
--- NOTE | 2020-05-24 14:50 | P.PN ---
Subjective Date of Service: 05/24/20 Primary Care Provider: Dr. Santo Chief Complaint: Fall injury, coffee-ground emesis, anemia Subjective: Other (Slight improvement in physical therapy. Physical therapy still recommends placement.) Physical Examination - Vital Signs Temperature: 97.4 F Blood Pressure: 156/71 Pulse: 78 Respirations: 16 Pulse Ox (%): 95 - Physical Exam General: Alert, In no apparent distress, Oriented x3, Cooperative HEENT: Atraumatic Neck: Supple Respiratory: Clear to auscultation bilaterally, Normal air movement Cardiovascular: Normal pulses, Regular rate/rhythm Gastrointestinal: Normal bowel sounds, No tenderness, No masses, No rebound Integumentary: Other (Back pain noted) Neurological: Normal speech, Normal strength at 5/5 x4 extr, Normal tone, Normal affect - Studies Medications List Reviewed: Yes Assessment & Plan Discharge Plan: Other (assisted facility) Plan to discharge in: 48 Hours Physician Review Additional Text: Impression: Syncope with bradycardia Acute on chronic renal disease stage III Anemia suspect upper GI bleed with noted GERD Back pain with noted L3 compression fracture Chronic systolic CHF Diabetes mellitus type 2 Depression with anxiety Hypertension Anorexia with poor oral intake BPH Hyperlipidemia Plan: Syncope with bradycardia: Likely from anemia. Hemoglobin stable this time. Will monitor this closely. Electrolytes being replaced. Still need to discuss with GI to address EGD colonoscopy findings. GI series likely shows gastritis. Continue Protonix. Physical therapy recommends skilled placement. This was discussed in detail with the patient and present. Patient and understand the importance of this. Patient still high risk for fall. Patient still does not qualify for inpatient rehab due to his lack of increase mobility. Patient with L3 compression fracture. Will provide lidocaine patch. Will provide medication for pain. No further use of nonsteroidal anti-inflammatories. Will discuss with family about skilled placement again tomorrow. Acute on chronic renal disease stage III: Continue with Nephrology recommendations. Anemia suspect upper GI bleed with noted GERD: Hemoglobin stable. Continue Protonix. Will monitor this closely. Will discuss with GI. Back pain with noted L3 compression fracture: Continue medication. Provide lidocaine patch. Chronic systolic CHF: Will monitor this closely. Patient given Lasix after transfusion. Will monitor this closely. Diabetes mellitus type 2: Sliding scale in place. A1c well controlled. Accu- Cheks to be monitored closely. Depression with anxiety: Continue medication. Hypertension: Continue to adjust medication for better control. Anorexia with poor oral intake: Dietary to assess daily needs. Will check calorie count. Hyperlipidemia: Continue medication BPH: Continue medication Time Spent Managing Pts Care (In Minutes): 55
[2020-05-24] MEDS: PANTOPRAZOLE 40MG TABLET PO SCH (16:33)
[2020-05-24] MEDS ORDERED: ACETYLCYST 20% 4 ML VIAL IH PRN (18:36)
[2020-05-24] MEDS: ACETYLCYST 20% 4 ML VIAL IH SCH (20:00)
--- NOTE | 2020-05-24 20:13 | RAD REPORT ---
EXAM DESCRIPTION: [facility] Single View05/24/2020 7:58 pm CLINICAL HISTORY: Cough COMPARISON: May 22 2020 FINDINGS: Worsening in the left basilar opacities Left hemidiaphragm remains elevated The right lung appears clear of acute infiltrate The heart is mildly enlarged. Postsurgical changes involve the chest IMPRESSION: Worsening in a left basilar pneumonia
[2020-05-24] MEDS: ATORVASTATIN 80 MG TAB PO SCH (20:58)
[2020-05-24] MEDS: TAMSULOSIN 0.4 MG SR CAP PO SCH (20:58)
[2020-05-24] MEDS: TRAMADOL HCL 50 MG TAB PO PRN (21:02)
[2020-05-25] MEDS: ACETYLCYST 20% 4 ML VIAL IH SCH ×2 (01:10→07:45)
[2020-05-25] MEDS: ALBUTEROL 2.5 MG/3 ML NEB SOL NEB SCH ×4 (01:10→20:10)
[2020-05-25] MEDS: IPRATROPIUM BROM 0.5MG/2.5ML NEB SCH ×4 (01:10→20:10)
[2020-05-25 04:10] LABS: Basophils % 0.6 % (0-1.3); Hematocrit 24.1 % (39.6-49.0); MPV 10.3 fL (7.6-11.3); RBC Red Blood Cell Count 3.51 M/uL (4.33-5.43)
[2020-05-25 04:21] LABS: Magnesium 2.3 mg/dL (1.8-2.4); Potassium 3.9 mmol/L (3.5-5.1)
[2020-05-25] MEDS: CODEINE 30MG/APAP 300MG TAB PO PRN ×3 (05:59→20:08)
[2020-05-25] MEDS: INSULIN -REGULAR HUMAN 50 UNIT/0.5 ML ML SQ SCH ×4 (07:30→20:25)
[2020-05-25] MEDS ORDERED: POTASSIUM CL SA 10 MEQ TAB PO ONE (09:00)
[2020-05-25] MEDS: ENOXAPARIN 40 MG/0.4 ML SQ SCH (09:00)
[2020-05-25] MEDS: METOPROLOL XL 50 MG TAB PO SCH (09:07)
[2020-05-25] MEDS: LIDOCAINE 4% PATCH TOP SCH (09:07)
[2020-05-25] MEDS: HYDRALAZINE HCL 25 MG TABLET PO SCH ×3 (09:08→20:24)
[2020-05-25] MEDS: CALCITROL 0.25 MCG CAP PO SCH (09:08)
[2020-05-25] MEDS: CLOPIDOGREL 75 MG TABLET PO SCH (09:08)
[2020-05-25] MEDS: VITAMIN D 5,000 UNIT CAP PO SCH (09:08)
[2020-05-25] MEDS: PANTOPRAZOLE 40MG TABLET PO SCH (09:08)
[2020-05-25] MEDS: DOXAZOSIN 2 MG TAB PO SCH ×2 (09:08→20:24)
[2020-05-25] MEDS: ESCITALOPRAM 20 MG TAB PO SCH (09:09)
[2020-05-25] MEDS: GLUCERNA SHAKE 237 ML CAN PO SCH ×2 (09:10→20:25)
--- NOTE | 2020-05-25 09:15 | P.PN ---
Subjective Date of Service: 05/25/20 Primary Care Provider: Dr. Santo Chief Complaint: Fall injury, coffee-ground emesis, anemia Subjective: Other (Patient reported some congestion yesterday. No fever noted decrease mobility) Physical Examination - Vital Signs Temperature: 97.2 F Blood Pressure: 199/79 Pulse: 70 Respirations: 16 Pulse Ox (%): 98 - Physical Exam General: Alert, In no apparent distress, Oriented x3, Cooperative HEENT: Atraumatic Neck: Supple Respiratory: Crackles/rales (Crackles to the left base) Cardiovascular: Normal pulses, Regular rate/rhythm Gastrointestinal: Normal bowel sounds, Soft and benign, Non-distended, No masses, No rebound, No guarding Integumentary: No erythema, No warmth, No cyanosis Neurological: Normal speech, Normal strength at 5/5 x4 extr, Normal tone, Normal affect - Studies Medications List Reviewed: Yes Assessment & Plan Discharge Plan: Other (long-term facility) Plan to discharge in: 48 Hours Physician Review Additional Text: Impression: Syncope with bradycardia Left base pneumonia Acute on chronic renal disease stage III Anemia suspect upper GI bleed with noted GERD Back pain with noted L3 compression fracture Chronic systolic CHF Diabetes mellitus type 2 Depression with anxiety Hypertension Anorexia with poor oral intake BPH Hyperlipidemia Plan: Syncope with bradycardia: Likely from anemia. Hemoglobin stable this time. Will monitor this closely. Continue Protonix. Physical therapy recommends skilled placement. This was discussed in detail with the patient and yesterday. Will Re discuss this again today with and patient. Patient appears to bees agreeable to this. Medication for pneumonia added today. Will check pro calcitonin. No fever noted. Medication for pain related to L3 compression fracture started yesterday. Encourage incentive spirometer. Continue monitor closely. Will discuss with social media content manager about the possibility of skilled placement. Left base pneumonia: X-ray reviewed. Will start Levaquin. Patient afebrile. Will check pro calcitonin. Provide oxygen as needed. Acute on chronic renal disease stage III: Continue with Nephrology recommendations. Anemia suspect upper GI bleed with noted GERD: Hemoglobin stable. Continue Protonix. Will monitor this closely. Will discuss with GI. Back pain with noted L3 compression fracture: Continue medication. Provide lidocaine patch. Chronic systolic CHF: Will monitor this closely. Patient given Lasix after transfusion. Will monitor this closely. Consider restarting Lasix at low dose. Diabetes mellitus type 2: Sliding scale in place. A1c well controlled. Accu- Cheks to be monitored closely. Will start basal insulin. Depression with anxiety: Continue medication. Hypertension: Continue to adjust medication for better control. Blood pressure still elevated. Anorexia with poor oral intake: Dietary to assess daily needs. Will check calorie count. Hyperlipidemia: Continue medication BPH: Continue medication Time Spent Managing Pts Care (In Minutes): 55
[2020-05-25] MEDS: SOD FERRIC GLUC COMPLX/SUCROSE 125 MG in NA CHLORIDE 0.9% 100 ML IV SCH (09:53)
[2020-05-25] MEDS: levoFLOXacin 500 MG TAB PO SCH (09:53)
[2020-05-25] MEDS: TRAMADOL HCL 50 MG TAB PO PRN (11:13)
[2020-05-25] MEDS: HYDRALAZINE HCL 20 MG/ML VIAL IV PRN (11:54)
--- NOTE | 2020-05-25 12:32 | P.PN ---
Subjective Date of Service: 05/25/20 Primary Care Provider: Dr. Santo Chief Complaint: Fall injury, coffee-ground emesis, anemia Subjective: Improving (No hematemesis / coffee-ground emesis in days. Hgb relatively stable at 8.) Physical Examination - Vital Signs Temperature: 97.2 F Blood Pressure: 199/79 Pulse: 70 Respirations: 16 Pulse Ox (%): 98 - Studies Medications List Reviewed: Yes Assessment And Plan - Current Problems (Diagnosis) (1) Coffee ground emesis Current Visit: Yes Status: Acute (2) Bradycardia Current Visit: Yes Status: Acute (3) Cardiomyopathy Current Visit: Yes Status: Acute (4) Syncope and collapse Current Visit: Yes Status: Acute (5) Anemia Onset Date: 11/05/16 Current Visit: No Status: Chronic - Plan REC: 1) outpatient pillcam study 2) continue IV antibiotics Physician Review Additional Text: Impression: Syncope with bradycardia Left base pneumonia Acute on chronic renal disease stage III Anemia suspect upper GI bleed with noted GERD Back pain with noted L3 compression fracture Chronic systolic CHF Diabetes mellitus type 2 Depression with anxiety Hypertension Anorexia with poor oral intake BPH Hyperlipidemia Plan: Syncope with bradycardia: Likely from anemia. Hemoglobin stable this time. Will monitor this closely. Continue Protonix. Physical therapy recommends skilled placement. This was discussed in detail with the patient and yesterday. Will Re discuss this again today with and patient. Patient appears to bees agreeable to this. Medication for pneumonia added today. Will check pro calcitonin. No fever noted. Medication for pain related to L3 compression fracture started yesterday. Encourage incentive spirometer. Continue monitor closely. Will discuss with social media content manager about the possibility of skilled placement. Left base pneumonia: X-ray reviewed. Will start Levaquin. Patient afebrile. Will check pro calcitonin. Provide oxygen as needed. Acute on chronic renal disease stage III: Continue with Nephrology recommendations. Anemia suspect upper GI bleed with noted GERD: Hemoglobin stable. Continue Protonix. Will monitor this closely. Will discuss with GI. Back pain with noted L3 compression fracture: Continue medication. Provide lidocaine patch. Chronic systolic CHF: Will monitor this closely. Patient given Lasix after transfusion. Will monitor this closely. Consider restarting Lasix at low dose. Diabetes mellitus type 2: Sliding scale in place. A1c well controlled. Accu- Cheks to be monitored closely. Will start basal insulin. Depression with anxiety: Continue medication. Hypertension: Continue to adjust medication for better control. Blood pressure still elevated. Anorexia with poor oral intake: Dietary to assess daily needs. Will check calorie count. Hyperlipidemia: Continue medication BPH: Continue medication
[2020-05-25] MEDS: ONDANSETRON 4 MG/2 ML VIAL IV PRN ×2 (14:48→20:08)
--- NOTE | 2020-05-25 14:48 | PN ---
Date of Progress Note: 05/25/2020 Subjective: The patient was seen and examined at bedside. Denies any complaints. He is crying and he is distressed. Physical Examination: Vital Signs: Have been reviewed and are stable. General: He appears in no acute distress. Lungs: Clear to auscultation. Abdomen: Soft and nontender. Extremities: Showed no evidence of edema. Laboratory Data: Showing creatinine improving to 1.5. Other electrolytes are stable. CBC showing s table hemoglobin, hematocrit, and platelet count. Current Medications: Have been reviewed in detail. Impression: 1.Acute renal failure secondary to acute tubular necrosis, improving. 2.Possible gastrointestinal bleed. Hemoglobin and hematocrit have been stable. He remains on PPI. 3.Syncope with bradycardia, possibly from gastrointestinal bleed. 4.Left lower lobe pneumonia, improving. 5.Type 2 diabetes. 6.Chronic congestive heart failure, stable. Plan: The patient's renal function is overall stable. The patient is having severe depression and a nxiety. May benefit from initiating low-dose benzodiazepine as needed p.r.n. for severe anxiety. Re nal function is overall stable. He is not on any IV fluids. Continue to encourage p.o. intake and we wi ll follow up on the renal labs. ETHEL/ERLIN Voice ID: [id number] Report ID: [id number]
[2020-05-25] MEDS: METOPROLOL XL 100 MG TAB PO SCH (20:24)
[2020-05-25] MEDS: INSULIN GLARGINE 100 UNITS/ML SQ SCH (20:24)
[2020-05-25] MEDS: ATORVASTATIN 80 MG TAB PO SCH (20:25)
[2020-05-25] MEDS: TAMSULOSIN 0.4 MG SR CAP PO SCH (20:25)
[2020-05-25] MEDS: TRAZODONE 50 MG TABLET PO PRN (20:51)
[2020-05-26] MEDS: IPRATROPIUM BROM 0.5MG/2.5ML NEB SCH ×4 (02:10→19:30)
[2020-05-26] MEDS: ALBUTEROL 2.5 MG/3 ML NEB SOL NEB SCH ×4 (02:10→19:30)
[2020-05-26 04:20] LABS: Basophils % 0.7 % (0-1.3); Hematocrit 23.9 % (39.6-49.0); Lymphocytes % 14.1 % (15.3-44.8); MPV 9.5 fL (7.6-11.3); RBC Red Blood Cell Count 3.51 M/uL (4.33-5.43)
[2020-05-26 04:42] LABS: Magnesium 2.4 mg/dL (1.8-2.4); Potassium 4.4 mmol/L (3.5-5.1)
[2020-05-26] MEDS: TRAMADOL HCL 50 MG TAB PO PRN ×2 (04:59→12:20)
[2020-05-26] MEDS: INSULIN -REGULAR HUMAN 50 UNIT/0.5 ML ML SQ SCH ×4 (07:30→21:00)
[2020-05-26] MEDS: HYDRALAZINE HCL 25 MG TABLET PO SCH ×3 (08:26→21:14)
[2020-05-26] MEDS: CALCITROL 0.25 MCG CAP PO SCH (08:26)
[2020-05-26] MEDS: ESCITALOPRAM 20 MG TAB PO SCH (08:26)
[2020-05-26] MEDS: ENOXAPARIN 40 MG/0.4 ML SQ SCH (08:26)
[2020-05-26] MEDS: CLOPIDOGREL 75 MG TABLET PO SCH (08:26)
[2020-05-26] MEDS: METOPROLOL XL 100 MG TAB PO SCH ×2 (08:26→21:14)
[2020-05-26] MEDS: levoFLOXacin 500 MG TAB PO SCH (08:26)
[2020-05-26] MEDS: LIDOCAINE 4% PATCH TOP SCH (08:27)
[2020-05-26] MEDS: PANTOPRAZOLE 40MG TABLET PO SCH (08:27)
[2020-05-26] MEDS: CODEINE 30MG/APAP 300MG TAB PO PRN ×2 (08:27→16:55)
[2020-05-26] MEDS: VITAMIN D 5,000 UNIT CAP PO SCH (08:27)
[2020-05-26] MEDS: SOD FERRIC GLUC COMPLX/SUCROSE 125 MG in NA CHLORIDE 0.9% 100 ML IV SCH (08:27)
[2020-05-26] MEDS: GLUCERNA SHAKE 237 ML CAN PO SCH ×2 (08:31→21:15)
[2020-05-26] MEDS: DOXAZOSIN 2 MG TAB PO SCH ×2 (08:34→21:49)
--- NOTE | 2020-05-26 09:59 | P.PN ---
Subjective Date of Service: 05/26/20 Primary Care Provider: Dr. Santo Chief Complaint: Fall injury, coffee-ground emesis, anemia Subjective: Other (doing well. still very weak. BP still elevated) Physical Examination - Vital Signs Temperature: 98.6 F Blood Pressure: 191/84 Pulse: 65 Respirations: 18 Pulse Ox (%): 92 - Physical Exam General: Alert, In no apparent distress, Oriented x3, Cooperative HEENT: Atraumatic Neck: Supple Respiratory: Clear to auscultation bilaterally, Normal air movement Cardiovascular: Normal pulses, Regular rate/rhythm Gastrointestinal: Normal bowel sounds, No tenderness, No masses, No rebound, No guarding Neurological: Normal speech, Normal strength at 5/5 x4 extr, Normal tone, Normal affect - Studies Medications List Reviewed: Yes Assessment & Plan Discharge Plan: Other (SNF) Plan to discharge in: 48 Hours Physician Review Additional Text: Impression: Syncope with bradycardia Left base pneumonia Acute on chronic renal disease stage III Anemia suspect upper GI bleed with noted GERD Back pain with noted L3 compression fracture Chronic systolic CHF Diabetes mellitus type 2 Depression with anxiety Hypertension Anorexia with poor oral intake BPH Hyperlipidemia Plan: Syncope with bradycardia: Likely from anemia. Hemoglobin stable this time. Will monitor this closely. Continue Protonix. GI recommends outpatient pill cam. Physical therapy recommends skilled placement. This was discussed in detail with the patient yesterday. Will Re discuss this again today with . Patient appears to agree. Continue with medication for pneumonia. Medication for pain related to L3 compression fracture started yesterday. Encourage incentive spirometer. Continue monitor closely. Will discuss with foster care social worker about the possibility of skilled placement. Left base pneumonia: X-ray reviewed. Continue Levaquin. Patient afebrile. Wean off oxygen. Acute on chronic renal disease stage III: Continue with Nephrology recommendations. Anemia suspect upper GI bleed with noted GERD: Hemoglobin stable. Continue Protonix. Will monitor this closely. Gi recommends outpatient pill cam. Back pain with noted L3 compression fracture: Continue medication. Provide lidocaine patch. Chronic systolic CHF: Will monitor this closely. Patient given Lasix after transfusion. Will monitor this closely. Consider restarting Lasix at low dose. Diabetes mellitus type 2: Sliding scale in place. A1c well controlled. Accu- Cheks to be monitored closely. Continue insulin. Depression with anxiety: Continue medication. Hypertension: Continue to adjust medication for better control. Increase Hydralazine. Metoprolol was adjusted yesterday. May need additional medication. Anorexia with poor oral intake: Dietary to assess daily needs. Continue encourage oral intake. Hyperlipidemia: Continue medication BPH: Continue medication Time Spent Managing Pts Care (In Minutes): 55
[2020-05-26] MEDS: HYDRALAZINE HCL 20 MG/ML VIAL IV PRN (12:20)
[2020-05-26] MEDS: TAMSULOSIN 0.4 MG SR CAP PO SCH (15:08)
--- NOTE | 2020-05-26 15:32 | RAD REPORT ---
EXAM DESCRIPTION: [facility] Single View05/26/2020 3:26 pm CLINICAL HISTORY: Chest pain COMPARISON: May 24, 2020 FINDINGS: The left basilar opacity probably pneumonia has partially resolved Mild bilateral interstitial pulmonary opacities may indicate a mild superimposed interstitial pulmona ry edema The heart remains enlarged. Postsurgical changes involve chest
--- NOTE | 2020-05-26 15:33 | RAD REPORT ---
EXAM DESCRIPTION: RAD - Abdomen 1 View (KUB) - 05/26/2020 3:24 pm CLINICAL HISTORY: Abdomen pain. FINDINGS: The bowel gas pattern is unremarkable. Vascular calcifications are present Left hip arthroplasty has been performed
[2020-05-26] MEDS: ONDANSETRON 4 MG/2 ML VIAL IV PRN (16:55)
[2020-05-26] MEDS: FUROSEMIDE 20 MG TABLET PO SCH (16:56)
[2020-05-26] MEDS: DOCUSATE NA 100 MG CAP PO PRN (17:00)
[2020-05-26] MEDS: CALCITONIN NASAL SPRAY 200 IU/DOSE NAS SCH (18:24)
--- NOTE | 2020-05-26 19:28 | P.PN ---
Date of Service: 05/26/20 Vital Signs Temp Pulse Resp BP Pulse Ox 97.9 F 68 18 181/83 H 94 05/26/20 16:00 05/26/20 16:56 05/26/20 16:55 05/26/20 16:56 05/26/20 16:55 Medications Acetaminophen (Tylenol -Extra Strength) 500 mg PO Q4HP PRN PRN Reason: Pain/fever Stop: 06/16/20 12:45 Last Admin: 05/24/20 00:42 Dose: 500 mg Documented by: Acetaminophen/Codeine Phosphate (Tylenol W/Codeine #3 Tab) 1 tab PO Q6H PRN PRN Reason: Pain scale 5-7 (Moderate) Stop: 06/22/20 21:31 Last Admin: 05/26/20 16:55 Dose: 1 tab Documented by: Albuterol Sulfate (Proventil 0.083% Neb Soln) 2.5 mg NEB [id number] [facility] Stop: 06/18/20 02:01 Last Admin: 05/26/20 13:00 Dose: 2.5 mg Documented by: Atorvastatin Calcium (Lipitor) 80 mg PO BEDTIME [facility] Stop: 06/19/20 21:01 Last Admin: 05/25/20 20:25 Dose: 80 mg Documented by: Calcitonin [place] (Miacalcin Nasal [place]) 1 sprays GEMA DAILY [facility] Stop: 06/25/20 18:01 Last Admin: 05/26/20 18:24 Dose: 1 sprays Documented by: Calcitriol (Rocaltrol) 0.5 mcg PO DAILY [facility] Stop: 06/23/20 09:01 Last Admin: 05/26/20 08:26 Dose: 0.5 mcg Documented by: Cholecalciferol (Vitamin D 5,000 Iu Cap) 5,000 unit PO DAILY [facility] Stop: 06/23/20 09:01 Last Admin: 05/26/20 08:27 Dose: 5,000 unit Documented by: Clopidogrel Bisulfate (Plavix) 75 mg PO DAILY [facility] Stop: 06/20/20 09:01 Last Admin: 05/26/20 08:26 Dose: 75 mg Documented by: Dextrose (Dextrose 50% Syringe/Vial) 12.5 gm IV PRN PRN; Protocol PRN Reason: HYPOGLYCEMIA Stop: 06/16/20 21:03 Docusate Sodium (Colace Cap) 100 mg PO DAILY PRN PRN Reason: CONSTIPATION Stop: 06/25/20 16:42 Last Admin: 05/26/20 17:00 Dose: 100 mg Documented by: Doxazosin Mesylate (Cardura) 2 mg PO BID [facility] Stop: 06/18/20 21:01 Last Admin: 05/26/20 08:34 Dose: 2 mg Documented by: Enoxaparin Sodium (Lovenox 40 Mg Inj) 40 mg SQ DAILY [facility] Stop: 06/17/20 09:01 Last Admin: 05/26/20 08:26 Dose: 40 mg Documented by: Enteral Nutritional Formula (Glucerna Shake) 237 ml PO BID [facility] Stop: 06/17/20 21:01 Last Admin: 05/26/20 08:31 Dose: 237 ml Documented by: Escitalopram Oxalate (Lexapro) 20 mg PO DAILY [facility] Stop: 06/20/20 09:01 Last Admin: 05/26/20 08:26 Dose: 20 mg Documented by: Furosemide (Lasix) 20 mg PO BIDL [facility] Stop: 06/25/20 17:01 Last Admin: 05/26/20 16:56 Dose: 20 mg Documented by: Gabapentin (Neurontin) 100 mg PO TID PRN PRN Reason: Pain scale 2-4 (Mild) Stop: 06/25/20 21:01 Glucagon (Glucagen) 1 mg IM 1X PRN; Protocol PRN Reason: HYPOGLYCEMIA Stop: 06/16/20 21:03 Hydralazine HCl (Apresoline) 10 mg IV Q4HP PRN PRN Reason: FOR SBP>160 OR DBP>100 MMHG Stop: 06/17/20 17:15 Last Admin: 05/26/20 12:20 Dose: 10 mg Documented by: Hydralazine HCl (Apresoline) 50 mg PO TID [facility] Stop: 06/25/20 14:01 Last Admin: 05/26/20 15:08 Dose: 50 mg Documented by: Insulin Glargine (Lantus) 5 units SQ BEDTIME [facility] Stop: 06/24/20 21:01 Last Admin: 05/25/20 20:24 Dose: 5 units Documented by: Insulin Human Regular (Novolin -R) 0 unit SQ ACHS [facility]; Protocol Stop: 06/18/20 21:20 Last Admin: 05/26/20 16:30 Dose: Not Given Documented by: Ipratropium [place] (Atrovent Neb) 0.5 mg NEB [id number] [facility] Stop: 06/18/20 20:55 Last Admin: 05/26/20 13:00 Dose: 0.5 mg Documented by: Levofloxacin (Levaquin) 500 mg PO DAILY [facility]; Protocol Stop: 06/24/20 09:09 Last Admin: 05/26/20 08:26 Dose: 500 mg Documented by: Lidocaine (Aspercreme 4% Patch) 1 patch TOP DAILY [facility] Stop: 06/24/20 09:01 Last Admin: 05/26/20 08:27 Dose: 1 patch Documented by: Metoprolol Succinate (Toprol Xl) 100 mg PO BID [facility] Stop: 06/24/20 21:01 Last Admin: 05/26/20 08:26 Dose: 100 mg Documented by: Ondansetron HCl (Zofran) 4 mg IV Q6HP PRN PRN Reason: NAUSEA / VOMITING Stop: 06/16/20 12:45 Last Admin: 05/26/20 16:55 Dose: 4 mg Documented by: Pantoprazole Sodium (Protonix Tab) 40 mg PO ACB [facility]; Protocol Stop: 06/23/20 16:01 Last Admin: 05/26/20 08:27 Dose: 40 mg Documented by: Sodium Chloride (Normal Saline Flush) 10 ml IV BID [facility] Stop: 06/16/20 21:01 Last Admin: 05/26/20 08:29 Dose: 10 ml Documented by: Tamsulosin HCl (Flomax) 0.4 mg PO BEDTIME [facility] Stop: 06/18/20 21:01 Last Admin: 05/26/20 15:08 Dose: 0.4 mg Documented by: Tramadol HCl (Ultram) 50 mg PO TID PRN PRN Reason: PAIN Stop: 06/23/20 14:53 Last Admin: 05/26/20 12:20 Dose: 50 mg Documented by: Trazodone HCl (Desyrel) 100 mg PO BEDTIME PRN PRN PRN Reason: INSOMNIA Stop: 06/24/20 20:39 Last Admin: 05/25/20 20:51 Dose: 100 mg Documented by: Microbiology Results 05/17/20 11:09 Nasopharnyx Influenza Type A Antigen Screen - Final 05/17/20 11:09 Nasopharnyx Influenza Type B Antigen Screen - Final Assessment/ Plan: Nephrology CPS stable without CP or SOB. No acute events overnight. Feeling better today. Vitals, medications, blood work and imaging reviewed in the chart. NAD. MMM. Neck supple. CTA. RRR. Soft Abd. No C/C/E. No rash. AAO. Normal Speech. 05/17/20 07:47: PT 11.8, INR 1.00, APTT 26.8 05/17/20 07:47: WBC 14.5 H, Hgb 8.2 L, Hct 24.9 L, Plt Count 198 05/17/20 07:47: Sodium 142, Potassium 3.7, BUN 46 H, Creatinine 1.83 H, Glucose 150 H, Total Bilirubin 0.9, AST 33, ALT 44, Alkaline Phosphatase 67, Lipase 86 Imagings Data: EXAM DESCRIPTION: CT - Head C Spine Cap Wo Con - 05/17/2020 8:12 am TECHNIQUE: Computed axial tomography of the head and cervical spine was obtained. Coronal and sagittal reconstruction was performed Computed axial tomography of the chest, abdomen and pelvis was obtained. Contrast was not requested. All CT scans are performed using dose optimization technique as appropriate and may include automated exposure control or mA/KV adjustment according to patient size. CLINICAL HISTORY: Head and neck injury with chest and abdominal pain status post fall COMPARISON: CT chest 2019 FINDINGS: An intracranial bleed is not seen. Low-density within the right internal capsule/basal ganglia has the appearance of an old lacunar infarction. 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 The ventricles are normal in caliber. An extra-axial fluid collection is not noted. . Opacification of the left mastoid. This may indicate mastoiditis and should be correlated clinically. A cervical fracture is not seen. No dislocation is noted. Spondylosis involves the cervical spine resulting central and foraminal stenosis The evaluation of mediastinum, tiffany, vessels, solid organs and bowel are limited secondary to the lack of contrast administration. A mediastinal hematoma is not noted. A pleural effusion is not seen. A lung contusion is not present. The liver,spleen, pancreas, adrenals,kidneys and bladder the do not demonstrate a traumatic injury Right renal cyst Mild acute compression fracture T12 vertebral body. Minimal retropulsion of fracture fragment into the spinal canal. The vertebral body is approximately 87% normal height Mild acute compression fracture L3 vertebral body. Vertebral body is approximately 85% normal height Trace amount of free fluid within the pelvis IMPRESSION: 1. No acute intracranial abnormality is seen. 2. A cervical fracture is not visualized. If the patient continues have symptoms to suggest intracranial/spinal cord pathology MRI be recommended 3. No traumatic abnormality involving the chest 4. Mild acute compression fractures T12 and L3 vertebral bodies EXAM DESCRIPTION: Roger Single View05/17/2020 8:19 am CLINICAL HISTORY: Chest pain COMPARISON: July 2019 FINDINGS: The lungs appear clear of acute infiltrate. The heart is mildly enlarged. Postsurgical changes involve the chest. IMPRESSION: No acute abnormalities displayed Conclusions/Impression: A/ OSCAR in the setting of hypovolemia Hypokalemia HTN uncontrolled DM II GI bleed. P/ Continue current POC and Medications Increase Doxazosin. DC flomax. Follow up with GI. Plan for outpt pill cam. Transfuse PRBC as needed. Encourage nutrition as tolerated. No NSAIDs. AM labs. Daily weight.
[2020-05-26] MEDS: ATORVASTATIN 80 MG TAB PO SCH (21:14)
[2020-05-26] MEDS: INSULIN GLARGINE 100 UNITS/ML SQ SCH (21:14)
[2020-05-27] MEDS: IPRATROPIUM BROM 0.5MG/2.5ML NEB SCH ×4 (01:15→19:55)
[2020-05-27] MEDS: ALBUTEROL 2.5 MG/3 ML NEB SOL NEB SCH ×2 (01:15→07:50)
[2020-05-27] MEDS: CODEINE 30MG/APAP 300MG TAB PO PRN ×2 (04:27→14:11)
[2020-05-27] MEDS: INSULIN -REGULAR HUMAN 50 UNIT/0.5 ML ML SQ SCH ×4 (07:30→21:00)
[2020-05-27] MEDS: GLUCERNA SHAKE 237 ML CAN PO SCH ×3 (09:00→21:31)
[2020-05-27] MEDS: CALCITONIN NASAL SPRAY 200 IU/DOSE NAS SCH (09:00)
--- NOTE | 2020-05-27 09:28 | P.PN ---
Subjective Date of Service: 05/27/20 Primary Care Provider: Dr. Santo Chief Complaint: Fall injury, coffee-ground emesis, anemia Subjective: Improving, Doing well, Other (Patient did well after placement of urinary catheter yesterday.) Physical Examination - Vital Signs Temperature: 97.8 F Blood Pressure: 194/80 Pulse: 67 Respirations: 19 Pulse Ox (%): 100 - Physical Exam General: Alert, In no apparent distress, Oriented x3, Cooperative HEENT: Atraumatic Neck: Supple Respiratory: Clear to auscultation bilaterally, Normal air movement Cardiovascular: Normal pulses, Regular rate/rhythm Gastrointestinal: Normal bowel sounds, Soft and benign, Non-distended, No tenderness, No masses, No rebound, No guarding Musculoskeletal: No tenderness, No warmth Integumentary: No tenderness/swelling, No erythema, No warmth, No cyanosis Neurological: Normal speech, Normal strength at 5/5 x4 extr, Normal tone, Normal affect Urinary: Holcomb catheter - Studies Medications List Reviewed: Yes Assessment & Plan Discharge Plan: Other (nursing home facility) Plan to discharge in: 48 Hours Physician Review Additional Text: Impression: Syncope with bradycardia Left base pneumonia Urinary retention with BPH Acute on chronic renal disease stage III Anemia suspect upper GI bleed with noted GERD Back pain with noted L3 compression fracture Chronic systolic CHF Diabetes mellitus type 2 Depression with anxiety Hypertension Anorexia with poor oral intake BPH Hyperlipidemia Plan: Syncope with bradycardia: Likely from anemia. Hemoglobin stable this time. Continue monitor hemoglobin. Patient has received blood during the course of his stay. Continued work with physical therapy. Patient had urinary retention. Urinary catheter placed. Patient now much improved. Spoke with in detail concerning multiple medical issues. This included discussion with patient. Continue to recommend skilled placement. It appears that he is agreeable to this. Additional medication added for his L3 compression fracture. Chest x-ray shows improvement in pneumonia. Patient off oxygen. Continue with nephrology recommendation. GI recommends outpatient pill camera to further evaluate his anemia. Patient overall stable. Will continue to pursue skilled placement. Will discuss with delinquency prevention social worker. Left base pneumonia: X-ray reviewed. Continue Levaquin. Patient afebrile. Wean off oxygen. Urinary retention with history of BPH: Urinary catheter placed yesterday with improvement. Continue with Flomax. Acute on chronic renal disease stage III: Continue with Nephrology recommendations. Overall stable. No recheck lab again today. Anemia suspect upper GI bleed with noted GERD: Hemoglobin stable. Continue to monitor hemoglobin. Continue Protonix. Will monitor this closely. Gi recommends outpatient pill cam. Back pain with noted L3 compression fracture: Continue medication. Provide lidocaine patch. miacalcin added yesterday along with Neurontin. Continue physical therapy. Patient would benefit with skilled placement. Chronic systolic CHF: Will monitor this closely. Patient given Lasix after transfusion. Will monitor this closely. Lasix restarted at low dose. Diabetes mellitus type 2: Sliding scale in place. A1c well controlled. Accu- Cheks to be monitored closely. Continue insulin. Depression with anxiety: Continue medication. Hypertension: Continue to adjust medication for better control. Will discuss with nephrology Anorexia with poor oral intake: Dietary to assess daily needs. Continue encourage oral intake. Hyperlipidemia: Continue medication BPH: Continue medication Time Spent Managing Pts Care (In Minutes): 55
[2020-05-27 10:00] LABS: Basophils % 0.4 % (0-1.3); Hematocrit 23.4 % (39.6-49.0); Lymphocytes % 13.2 % (15.3-44.8); MPV 9.9 fL (7.6-11.3); RBC Red Blood Cell Count 3.45 M/uL (4.33-5.43)
[2020-05-27 10:13] LABS: Magnesium 2.4 mg/dL (1.8-2.4)
[2020-05-27] MEDS: DOXAZOSIN 2 MG TAB PO SCH ×2 (10:32→21:30)
[2020-05-27] MEDS: METOPROLOL XL 100 MG TAB PO SCH ×2 (10:32→21:29)
[2020-05-27] MEDS: levoFLOXacin 500 MG TAB PO SCH (10:32)
[2020-05-27] MEDS: VITAMIN D 5,000 UNIT CAP PO SCH (10:33)
[2020-05-27] MEDS: HYDRALAZINE HCL 25 MG TABLET PO SCH ×3 (10:33→21:30)
[2020-05-27] MEDS: PANTOPRAZOLE 40MG TABLET PO SCH (10:33)
[2020-05-27] MEDS: ENOXAPARIN 40 MG/0.4 ML SQ SCH (10:33)
[2020-05-27] MEDS: ESCITALOPRAM 20 MG TAB PO SCH (10:34)
[2020-05-27] MEDS: CALCITROL 0.25 MCG CAP PO SCH (10:34)
[2020-05-27] MEDS: LIDOCAINE 4% PATCH TOP SCH (10:34)
[2020-05-27] MEDS: CLOPIDOGREL 75 MG TABLET PO SCH (10:34)
[2020-05-27] MEDS: FUROSEMIDE 20 MG TABLET PO SCH (10:37)
[2020-05-27 15:32] LABS: Hematocrit 23.6 % (39.6-49.0)
[2020-05-27] MEDS: GABAPENTIN 100 MG CAP PO PRN (16:14)
[2020-05-27] MEDS: TRAMADOL HCL 50 MG TAB PO PRN (18:45)
--- NOTE | 2020-05-27 19:15 | P.PN ---
Date of Service: 05/27/20 Vital Signs Temp Pulse Resp BP Pulse Ox 97.7 F 70 18 126/56 L 92 05/27/20 16:00 05/27/20 16:22 05/27/20 18:45 05/27/20 16:22 05/27/20 18:45 Medications Acetaminophen (Tylenol -Extra Strength) 500 mg PO Q4HP PRN PRN Reason: Pain/fever Stop: 06/16/20 12:45 Last Admin: 05/24/20 00:42 Dose: 500 mg Documented by: Acetaminophen/Codeine Phosphate (Tylenol W/Codeine #3 Tab) 1 tab PO Q6H PRN PRN Reason: Pain scale 5-7 (Moderate) Stop: 06/22/20 21:31 Last Admin: 05/27/20 14:11 Dose: 1 tab Documented by: Albuterol Sulfate (Proventil 0.083% Neb Soln) 2.5 mg NEB Q6HP PRN PRN Reason: SHORTNESS OF BREATH Stop: 06/26/20 11:26 Atorvastatin Calcium (Lipitor) 80 mg PO BEDTIME [facility] Stop: 06/19/20 21:01 Last Admin: 05/26/20 21:14 Dose: 80 mg Documented by: Calcitonin [place] (Miacalcin Nasal [place]) 1 sprays GEMA DAILY [facility] Stop: 06/25/20 18:01 Last Admin: 05/27/20 09:00 Dose: 1 sprays Documented by: Calcitriol (Rocaltrol) 0.5 mcg PO DAILY [facility] Stop: 06/23/20 09:01 Last Admin: 05/27/20 10:34 Dose: 0.5 mcg Documented by: Cholecalciferol (Vitamin D 5,000 Iu Cap) 5,000 unit PO DAILY [facility] Stop: 06/23/20 09:01 Last Admin: 05/27/20 10:33 Dose: 5,000 unit Documented by: Clopidogrel Bisulfate (Plavix) 75 mg PO DAILY [facility] Stop: 06/20/20 09:01 Last Admin: 05/27/20 10:34 Dose: 75 mg Documented by: Dextrose (Dextrose 50% Syringe/Vial) 12.5 gm IV PRN PRN; Protocol PRN Reason: HYPOGLYCEMIA Stop: 06/16/20 21:03 Docusate Sodium (Colace Cap) 100 mg PO DAILY PRN PRN Reason: CONSTIPATION Stop: 06/25/20 16:42 Last Admin: 05/26/20 17:00 Dose: 100 mg Documented by: Doxazosin Mesylate (Cardura) 4 mg PO BID [facility] Stop: 06/25/20 21:01 Last Admin: 05/27/20 10:32 Dose: 4 mg Documented by: Enoxaparin Sodium (Lovenox 40 Mg Inj) 40 mg SQ DAILY [facility] Stop: 06/17/20 09:01 Last Admin: 05/27/20 10:33 Dose: 40 mg Documented by: Enteral Nutritional Formula (Glucerna Shake) 237 ml PO TID [facility] Stop: 06/26/20 14:01 Last Admin: 05/27/20 14:00 Dose: 237 ml Documented by: Escitalopram Oxalate (Lexapro) 20 mg PO DAILY [facility] Stop: 06/20/20 09:01 Last Admin: 05/27/20 10:34 Dose: 20 mg Documented by: Furosemide (Lasix) 20 mg PO DAILY [facility] Stop: 06/27/20 09:01 Gabapentin (Neurontin) 100 mg PO TID PRN PRN Reason: Pain scale 2-4 (Mild) Stop: 06/25/20 21:01 Last Admin: 05/27/20 16:14 Dose: 100 mg Documented by: Glucagon (Glucagen) 1 mg IM 1X PRN; Protocol PRN Reason: HYPOGLYCEMIA Stop: 06/16/20 21:03 Hydralazine HCl (Apresoline) 10 mg IV Q4HP PRN PRN Reason: FOR SBP>160 OR DBP>100 MMHG Stop: 06/17/20 17:15 Last Admin: 05/26/20 12:20 Dose: 10 mg Documented by: Hydralazine HCl (Apresoline) 50 mg PO TID [facility] Stop: 06/25/20 14:01 Last Admin: 05/27/20 14:11 Dose: 50 mg Documented by: Insulin Glargine (Lantus) 5 units SQ BEDTIME [facility] Stop: 06/24/20 21:01 Last Admin: 05/26/20 21:14 Dose: 5 units Documented by: Insulin Human Regular (Novolin -R) 0 unit SQ ACHS [facility]; Protocol Stop: 06/18/20 21:20 Last Admin: 05/27/20 16:30 Dose: Not Given Documented by: Ipratropium [place] (Atrovent Neb) 0.5 mg NEB [id number] [facility] Stop: 06/18/20 20:55 Last Admin: 05/27/20 12:49 Dose: 0.5 mg Documented by: Levofloxacin (Levaquin) 500 mg PO DAILY [facility]; Protocol Stop: 06/24/20 09:09 Last Admin: 05/27/20 10:32 Dose: 500 mg Documented by: Lidocaine (Aspercreme 4% Patch) 1 patch TOP DAILY [facility] Stop: 06/24/20 09:01 Last Admin: 05/27/20 10:34 Dose: 1 patch Documented by: Metoprolol Succinate (Toprol Xl) 100 mg PO BID [facility] Stop: 06/24/20 21:01 Last Admin: 05/27/20 10:32 Dose: 100 mg Documented by: Ondansetron HCl (Zofran) 4 mg IV Q6HP PRN PRN Reason: NAUSEA / VOMITING Stop: 06/16/20 12:45 Last Admin: 05/26/20 16:55 Dose: 4 mg Documented by: Pantoprazole Sodium (Protonix Tab) 40 mg PO ACB [facility]; Protocol Stop: 06/23/20 16:01 Last Admin: 05/27/20 10:33 Dose: 40 mg Documented by: Sodium Chloride (Normal Saline Flush) 10 ml IV BID [facility] Stop: 06/16/20 21:01 Last Admin: 05/27/20 09:00 Dose: 10 ml Documented by: Tramadol HCl (Ultram) 50 mg PO TID PRN PRN Reason: PAIN Stop: 06/23/20 14:53 Last Admin: 05/27/20 18:45 Dose: 50 mg Documented by: Trazodone HCl (Desyrel) 100 mg PO BEDTIME PRN PRN PRN Reason: INSOMNIA Stop: 06/24/20 20:39 Last Admin: 05/25/20 20:51 Dose: 100 mg Documented by: Microbiology Results 05/17/20 11:09 Nasopharnyx Influenza Type A Antigen Screen - Final 05/17/20 11:09 Nasopharnyx Influenza Type B Antigen Screen - Final Assessment/ Plan: Nephrology CPS stable without CP or SOB. No acute events overnight. Doing well. Vitals, medications, blood work and imaging reviewed in the chart. NAD. MMM. Neck supple. CTA. RRR. Soft Abd. No C/C/E. No rash. AAO. Normal Speech. 05/17/20 07:47: PT 11.8, INR 1.00, APTT 26.8 05/17/20 07:47: WBC 14.5 H, Hgb 8.2 L, Hct 24.9 L, Plt Count 198 05/17/20 07:47: Sodium 142, Potassium 3.7, BUN 46 H, Creatinine 1.83 H, Glucose 150 H, Total Bilirubin 0.9, AST 33, ALT 44, Alkaline Phosphatase 67, Lipase 86 Imagings Data: EXAM DESCRIPTION: CT - Head C Spine Cap Wo Con - 05/17/2020 8:12 am TECHNIQUE: Computed axial tomography of the head and cervical spine was obtained. Coronal and sagittal reconstruction was performed Computed axial tomography of the chest, abdomen and pelvis was obtained. Con trast was not requested. All CT scans are performed using dose optimization technique as appropriate and may include automated exposure control or mA/KV adjustment according to patient size. CLINICAL HISTORY: Head and neck injury with chest and abdominal pain status post fall COMPARISON: CT chest 2018 FINDINGS: An intracranial bleed is not seen. Low-density within the right internal capsule/basal ganglia has the appearance of an old lacunar infarction. 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 The ventricles are normal in caliber. An extra-axial fluid collection is not noted. . Opacification of the left mastoid. This may indicate mastoiditis and should be correlated clinically. A cervical fracture is not seen. No dislocation is noted. Spondylosis involves the cervical spine resulting central and foraminal stenosis The evaluation of mediastinum, tiffany, vessels, solid organs and bowel are limited secondary to the lack of contrast administration. A mediastinal hematoma is not noted. A pleural effusion is not seen. A lung contusion is not present. The liver,spleen, pancreas, adrenals,kidneys and bladder the do not demonstrate a traumatic injury Right renal cyst Mild acute compression fracture T12 vertebral body. Minimal retropulsion of fracture fragment into the spinal canal. The vertebral body is approximately 87% normal height Mild acute compression fracture L3 vertebral body. Vertebral body is approximately 85% normal height Trace amount of free fluid within the pelvis IMPRESSION: 1. No acute intracranial abnormality is seen. 2. A cervical fracture is not visualized. If the patient continues have symptoms to suggest intracranial/spinal cord pathology MRI be recommended 3. No traumatic abnormality involving the chest 4. Mild acute compression fractures T12 and L3 vertebral bodies EXAM DESCRIPTION: Roger Single View05/17/2020 8:19 am CLINICAL HISTORY: Chest pain COMPARISON: July 2019 FINDINGS: The lungs appear clear of acute infiltrate. The heart is mildly enlarged. Postsurgical changes involve the chest. IMPRESSION: No acute abnormalities displayed Conclusions/Impression: A/ OSCAR in the setting of hypovolemia Hypokalemia HTN uncontrolled DM II GI bleed. P/ Continue current POC and Medications Continue Doxazosin and Metoprolol. Follow up with GI. Plan for outpt pill cam. Transfuse PRBC as needed. Encourage nutrition as tolerated. Recommend PT as tolerated. No NSAIDs. AM labs. Daily weight. Case reviewed with Dr. Michelle. Plan for SNF.
[2020-05-27] MEDS: ATORVASTATIN 80 MG TAB PO SCH (21:29)
[2020-05-27] MEDS: INSULIN GLARGINE 100 UNITS/ML SQ SCH (21:30)
[2020-05-27] MEDS ORDERED: NA CHLORIDE 0.9% 250 ML ONE (23:40)
[2020-05-28] MEDS: IPRATROPIUM BROM 0.5MG/2.5ML NEB SCH ×2 (01:05→08:00)
[2020-05-28] MEDS ORDERED: FUROSEMIDE 20 MG/ 2ML VIAL IV ONE ×2 (01:18→05:45)
[2020-05-28] MEDS: INSULIN -REGULAR HUMAN 50 UNIT/0.5 ML ML SQ SCH ×4 (07:30→21:00)
--- NOTE | 2020-05-28 08:04 | P.PN ---
Subjective Date of Service: 05/28/20 Primary Care Provider: Dr. Santo Chief Complaint: Fall injury, coffee-ground emesis, anemia Subjective: Other (Patient feels better this morning. Case discussed in detail with GI last night. Patient receiving 2 units of packed red blood cells. Patient had 6 run beat of V-tach. This was asymptomatic. Cardiology was consulted.) Physical Examination - Vital Signs Temperature: 97.2 F Blood Pressure: 161/90 Pulse: 63 Respirations: 18 Pulse Ox (%): 96 - Physical Exam General: Alert, In no apparent distress, Oriented x3, Cooperative HEENT: Atraumatic Neck: Supple Respiratory: Clear to auscultation bilaterally, Normal air movement Cardiovascular: Normal pulses, Regular rate/rhythm Gastrointestinal: Normal bowel sounds, Soft and benign, Non-distended, No tenderness, No masses, No rebound, No guarding Musculoskeletal: No tenderness, No warmth Neurological: Normal speech, Normal strength at 5/5 x4 extr, Normal tone, Normal affect, Other (Patient still reports some fatigue.) - Studies Medications List Reviewed: Yes Assessment & Plan Discharge Plan: Home (With home health and physical therapy) Plan to discharge in: 72 Hours Physician Review Additional Text: Impression: Syncope with bradycardia with 6 run of V-tach with significant history of CAD/CABG, chronic systolic CHF Left base pneumonia Acute Anemia likely related to gastritis/GERD with iron deficiency and chronic anemia Urinary retention with BPH Acute on chronic renal disease stage III Acute Back pain with noted L3 compression fracture Chronic systolic CHF Diabetes mellitus type 2 insulin depended Depression with anxiety Hypertension Anorexia with poor oral intake, moderate malnutrition BPH Hyperlipidemia Plan: Syncope with bradycardia with 6 run of V-tach with significant history of CAD/CABG, chronic systolic CHF: Patient had 6 run beat of V-tach. This was asymptomatic. Patient doing well this time. Will continue monitor closely. Will consult cardiology for further recommendation. Recent echocardiogram showed improvement from prior echo. Ejection fraction 47%. Will discuss further with cardiology. Case discussed with GI last night. Syncope likely related to anemia. Anemia still slightly low. Decision was made to provide 2 units of packed of blood cells especially in light of his chronic cardiac issues. Will continue to monitor hemoglobin. Patient had EGD showing gastritis. Colonoscopy unremarkable. Both showed no active bleeding. Patient also had small-bowel follow-through which was unremarkable. GI still recommends outpatient pill camera. I had a long discussion with the patient and yesterday. They have decided not to pursue skilled placement. Will discuss with health care social worker about home health and physical therapy at discharge. Will continue ambulation with physical therapy. Continue with medication for pain for his L compression fracture. Will continue to monitor closely. Anticipate improvement over the next 48-72 hr. Left base pneumonia: Recent x-ray shows improvement. Continue Levaquin for t otal 7 days. Acute Anemia likely related to gastritis/GERD with iron deficiency and chronic anemia: Case discussed in detail with GI at last night. EGD showed gastritis with no active bleeding. Colonoscopy was a poor prep but unremarkable. Small- bowel follow-through was negative. Patient to receive 2 units of packed red blood cells which started last night as recommended by GI in light of his cardiac history and fatigue. Will continue to monitor hemoglobin. GI still recommends outpatient GI pill camera. Continue Protonix. Continue iron supplementation will provide stool softener and medication for constipation as needed. Urinary retention with history of BPH: Patient had urinary retention. Patient with BPH. Continue Flomax and Cardura. Recommend to maintain catheter until he is seen by urology as an outpatient to consider removal. Acute on chronic renal disease stage III: Continue with Nephrology r ecommendations. Overall stable. Will monitor lab Acute Back pain with noted L3 compression fracture: Continue medication- lidocaine patch, miacalcin and Neurontin. Consider increasing Neurontin for better pain control. Continue physical therapy. Fall precaution in place. Patient and declined going to a skilled facility. Will pursue home health and physical therapy at discharge. Would recommend outpatient cardiac rehab. Will put in consult. Patient could consider vertebroplasty as an outpatient. Chronic systolic CHF: Will monitor this closely. Increase Lasix to 20 mg 1 pill twice daily. Recent echocardiogram showed improvement from prior echo. Will discuss with cardiology. Patient would benefit with cardiac rehab as an ou tpatient. Diabetes mellitus type 2 insulin-dependent: Encourage oral intake. A1c well controlled. Continue to hold metformin due to chronic renal disease. Continue to adjust basal insulin. Will monitor for hypoglycemia Depression with anxiety: Continue medication-Lexapro and trazodone. Hypertension: Continue to adjust medication for better control. Will add Norvasc. Continue with hydralazine, metoprolol and Cardura. Anorexia with poor oral intake, moderate malnutrition: Dietary to assess daily needs. Continue encourage oral intake. Will increase Glucerna 3 times a day. Hyperlipidemia: Continue medication Lipitor Time Spent Managing Pts Care (In Minutes): 55
[2020-05-28] MEDS: LIDOCAINE 4% PATCH TOP SCH ×2 (09:00→09:32)
[2020-05-28] MEDS ORDERED: FUROSEMIDE 20 MG TABLET PO SCH (09:00)
[2020-05-28] MEDS: GLUCERNA SHAKE 237 ML CAN PO SCH ×3 (09:00→21:00)
[2020-05-28] MEDS ORDERED: AMLODIPINE 5 MG TAB PO SCH (09:00)
[2020-05-28] MEDS: CALCITONIN NASAL SPRAY 200 IU/DOSE NAS SCH (09:00)
[2020-05-28] MEDS: ENOXAPARIN 40 MG/0.4 ML SQ SCH (09:31)
[2020-05-28] MEDS: HYDRALAZINE HCL 25 MG TABLET PO SCH ×3 (09:32→21:00)
[2020-05-28] MEDS: VITAMIN D 5,000 UNIT CAP PO SCH (09:32)
[2020-05-28] MEDS: CLOPIDOGREL 75 MG TABLET PO SCH (09:32)
[2020-05-28] MEDS: CALCITROL 0.25 MCG CAP PO SCH (09:32)
[2020-05-28] MEDS: DOXAZOSIN 2 MG TAB PO SCH ×2 (09:32→21:00)
[2020-05-28] MEDS: PANTOPRAZOLE 40MG TABLET PO SCH (09:33)
[2020-05-28] MEDS: levoFLOXacin 500 MG TAB PO SCH (09:33)
[2020-05-28] MEDS: METOPROLOL XL 100 MG TAB PO SCH ×2 (09:33→21:00)
[2020-05-28] MEDS: ESCITALOPRAM 20 MG TAB PO SCH (09:33)
[2020-05-28] MEDS: FOLIC ACID 1 MG TABLET PO SCH (09:37)
[2020-05-28] MEDS: FERROUS SULFATE 325 MG TAB PO SCH ×2 (09:37→21:00)
[2020-05-28] MEDS: FUROSEMIDE 20 MG TABLET PO SCH ×2 (09:37→21:00)
[2020-05-28] MEDS: ONDANSETRON 4 MG/2 ML VIAL IV PRN ×3 (09:43→18:04)
[2020-05-28 10:37] LABS: Absolute Lymphocytes (CBC) 0.8 K/uL (0.7-4.9); Basophils % 0.7 % (0-1.3); Hematocrit 30.6 % (39.6-49.0); Lymphocytes % 8.9 % (15.3-44.8); MPV 10.1 fL (7.6-11.3); RBC Red Blood Cell Count 4.26 M/uL (4.33-5.43)
[2020-05-28 10:51] LABS: Magnesium 2.1 mg/dL (1.8-2.4)
[2020-05-28 12:24] LABS: Anisocytosis 2+; Blood Morphology Comment NOTED (NOT SEEN); Platelet Estimate ADEQ; White Blood Cell Scan OK (OK)
[2020-05-28 12:25] LABS: Burr Cells 1+
--- NOTE | 2020-05-28 14:41 | RAD REPORT ---
EXAM DESCRIPTION: RAD - Abdomen 1 View (KUB) - 05/28/2020 2:04 pm CLINICAL HISTORY: Abdomen pain. FINDINGS: Moderately dilated jejunum left upper quadrant. Mildly dilated small left pelvis. Air with in the colon is diminished. This is suspicious for a mechanical small bowel obstruction. An ileus can also have this appearance
[2020-05-28] MEDS ORDERED: Levofloxacin500mg IV 500 MG/100 ML BAG IV SCH (16:00)
[2020-05-28] MEDS ORDERED: AMLODIPINE 5 MG TAB PO ONE (20:00)
--- NOTE | 2020-05-28 20:15 | RAD REPORT ---
EXAM DESCRIPTION: CT - Abdomen Pelvis Wo Contrast - 05/28/2020 7:54 pm CLINICAL HISTORY: Abdominal pain TECHNIQUE: Computed axial tomography of the abdomen and pelvis was obtained. IV and oral contrast we re not requested. All CT scans are performed using dose optimization technique as appropriate and may include automated exposure control or mA/KV adjustment according to patient size. FINDINGS: The evaluation of solid organs, vessels and bowel is limited secondary to the lack of con trast administration. Small bilateral pleural effusions with mild left basilar atelectasis The liver, spleen, pancreas, adrenals and left kidney appear grossly normal. Small right renal cyst No evidence of diverticulitis. No bowel obstruction. Holcomb catheter within the bladder. Small amount of ascites. Diffuse edema within the subcutaneous tissues Since May 18, 2020 there has been further compression of T12 vertebral body fracture. The vertebr al body is compressed approximately 45%. Retropulsion of fracture fragment results in approximately 1 0% narrowing of the spinal canal. L3 compression fracture involves approximately 20%. Of the vertebral body. Retropulsion of fracture f ragment results in approximately 25% narrowing of the spinal canal IMPRESSION: Subacute compression fractures T12 and L3 vertebral bodies Small bilateral pleural effusions with left basilar atelectasis Moderate amount of stool within the right and portion of transverse colon.
[2020-05-28] MEDS ORDERED: MORPHINE 2 MG/ML SYR IV ONE (20:44)
[2020-05-28] MEDS: ATORVASTATIN 80 MG TAB PO SCH (21:00)
[2020-05-28] MEDS: INSULIN GLARGINE 100 UNITS/ML SQ SCH (21:00)
[2020-05-29] MEDS: ONDANSETRON 4 MG/2 ML VIAL IV PRN ×4 (04:16→21:24)
[2020-05-29] MEDS: HYDRALAZINE HCL 20 MG/ML VIAL IV PRN ×2 (04:16→12:23)
[2020-05-29] MEDS ORDERED: MORPHINE 2 MG/ML SYR IV ONE (05:16)
[2020-05-29 05:49] LABS: Basophils % 0.5 % (0-1.3); Hematocrit 30.8 % (39.6-49.0); Lymphocytes % 10.8 % (15.3-44.8); MPV 10.1 fL (7.6-11.3); RBC Red Blood Cell Count 4.28 M/uL (4.33-5.43)
[2020-05-29 06:11] LABS: Magnesium 2.1 mg/dL (1.8-2.4); Potassium 3.9 mmol/L (3.5-5.1)
[2020-05-29] MEDS: INSULIN -REGULAR HUMAN 50 UNIT/0.5 ML ML SQ SCH ×4 (07:30→21:00)
[2020-05-29] MEDS: PANTOPRAZOLE 40MG TABLET PO SCH ×2 (07:30→09:30)
[2020-05-29] MEDS: ESCITALOPRAM 20 MG TAB PO SCH ×2 (09:00→09:31)
[2020-05-29] MEDS: FERROUS SULFATE 325 MG TAB PO SCH ×3 (09:00→21:00)
[2020-05-29] MEDS ORDERED: Levofloxacin500mg IV 500 MG/100 ML BAG IV SCH (09:00)
[2020-05-29] MEDS: FUROSEMIDE 20 MG TABLET PO SCH ×3 (09:00→21:29)
[2020-05-29] MEDS: VITAMIN D 5,000 UNIT CAP PO SCH ×2 (09:00→09:30)
[2020-05-29] MEDS: FOLIC ACID 1 MG TABLET PO SCH ×2 (09:00→09:30)
[2020-05-29] MEDS: CALCITROL 0.25 MCG CAP PO SCH ×2 (09:00→09:30)
[2020-05-29] MEDS: HYDRALAZINE HCL 25 MG TABLET PO SCH ×4 (09:00→21:00)
[2020-05-29] MEDS: CLOPIDOGREL 75 MG TABLET PO SCH ×2 (09:00→09:32)
[2020-05-29] MEDS: AMLODIPINE 10 MG TAB PO SCH ×2 (09:00→09:30)
[2020-05-29] MEDS: GLUCERNA SHAKE 237 ML CAN PO SCH ×3 (09:00→21:00)
[2020-05-29] MEDS: CALCITONIN NASAL SPRAY 200 IU/DOSE NAS SCH (09:00)
[2020-05-29] MEDS: METOPROLOL XL 100 MG TAB PO SCH ×3 (09:00→21:31)
[2020-05-29] MEDS: DOXAZOSIN 2 MG TAB PO SCH ×2 (09:00→21:28)
[2020-05-29] MEDS: LIDOCAINE 4% PATCH TOP SCH (09:29)
--- NOTE | 2020-05-29 09:50 | P.PN ---
Subjective Date of Service: 05/29/20 Primary Care Provider: Dr. Santo Chief Complaint: Fall injury, coffee-ground emesis, anemia Subjective: Other (Patient with nausea this morning. CT scan last night showed no acute obstruction. Stool noted. Pain seems to be fairly controlled.) Physical Examination - Vital Signs Temperature: 97.8 F Blood Pressure: 152/67 Pulse: 72 Respirations: 18 Pulse Ox (%): 95 - Physical Exam General: Alert, In no apparent distress, Oriented x3, Cooperative HEENT: Atraumatic Neck: Supple Respiratory: Clear to auscultation bilaterally, Normal air movement Cardiovascular: Normal pulses, Regular rate/rhythm Gastrointestinal: Normal bowel sounds, No masses, No rebound, No guarding, Tenderness (Minimal pain to the epigastric region) Musculoskeletal: No warmth, Other (Pain to the lumbar spine noted.) Neurological: Normal speech, Normal strength at 5/5 x4 extr, Normal tone, Normal affect, Other (While in bed patient has good strength to the lower extremity. He reports no loss of sensation. No numbness to the lower extremity.) Urinary: Holcomb catheter - Studies Medications List Reviewed: Yes Assessment & Plan Discharge Plan: Other (Patient/ desire home health with PT. Patient likely better candidate for skilled placement verses inpatient rehab) Plan to discharge in: 48 Hours Physician Review Additional Text: Impression: Syncope with bradycardia with significant history of CAD/CABG, chronic systolic CHF Left base pneumonia Acute Anemia likely related to gastritis/GERD with iron deficiency and chronic anemia Urinary retention with BPH Acute on chronic renal disease stage III Acute Back pain with noted L3 compression fracture Chronic systolic CHF Diabetes mellitus type 2 insulin depended Depression with anxiety Hypertension Anorexia with poor oral intake, moderate malnutrition BPH Hyperlipidemia Plan: Syncope with bradycardia with significant history of CAD/CABG, chronic systolic CHF: Patient has done well. No intervention needed by Cardiology. Recent echocardiogram showed improvement from prior echo. Ejection fraction 47%. There was some suspicion of ileus versus small-bowel obstruction yesterday after he ate a banana. CT scan revealed no obstruction or ileus. Patient with increased stool. Case discussed with surgery. Patient will have clear liquid diet. Will advance as tolerated. Surgery recommends medication for constipation. Will start with stool softener and lactulose. If no improvement will provide magnesium citrate. CT scan also showed subacute per compression fractures to the T12 and L3 vertebral bodies. This was noted on original CT scan. Since that time it appears T12 has compressed more to about 45%. 10% narrowing of the spinal canal noted. L3 compression fracture shows 20% compression with 25% narrowing of the spinal canal. Will consult neurology to further evaluate, await recommendations. Physical therapy to evaluate is well. When I spoke to the patient and yesterday concerning plan of care, patient/ desired to go to home with home health and physical therapy at discharge. They declined skilled placement. Will need to discuss with Neurology compression fracture. Physical therapy to further evaluate. Patient may be a candidate for rehab inpatient if no neurosurgical intervention is required. Patient would likely benefit with vertebroplasty but this is done as an outpatient. Will further discuss with Neurology. Will discuss in detail with patient and . Continue pain control. Advance care planning-30 min. I will turn the service over to the hospitalist team tomorrow. I will go over plan of care with him. Left base pneumonia: Recent x-ray shows improvement. Continue Levaquin for total 7 days. Acute Anemia likely related to gastritis/GERD with iron deficiency and chronic anemia: Case discussed in detail with GI 2 days ago. EGD showed gastritis with no active bleeding. Colonoscopy was a poor prep but unremarkable. Small-bowel follow-through was negative. Patient has received 3 units of packed red blood cells. Will continue to monitor hemoglobin. GI still recommends outpatient GI pill camera. Continue Protonix. Continue iron supplementation will provide stool softener and medication for constipation as needed. Urinary retention with history of BPH: Patient had urinary retention. Patient with BPH. Continue Flomax and Cardura. Recommend to maintain catheter until he is seen by urology as an outpatient to consider removal. Acute on chronic renal disease stage III: Continue with Nephrology recommendations. Overall stable. Will monitor lab Acute Back pain with T12-45% compression fracture, L3 20% compression fracture, spinal canal stenosis: CT scan yesterday showed progression of compression fracture. Will consult neurology for further recommendation. Physical therapy to make assessment. No decrease strength to the lower extremity or numbness. Continue medication-lidocaine patch, miacalcin and Neurontin. May need to adjust Neurontin for better pain control. Check with neurology to see if patient will require neuro surgery. Patient and desire home health and physical therapy discharge. This will likely not be possible. Will need to consider other options of care if no surgical intervention required at this time. Would highly recommend skilled placement verses inpatient rehab. Patient may also likely be a candidate for vertebroplasty but this is an outpatient procedure. Will explain in detail with family. Chronic systolic CHF: Will monitor this closely. Continue Lasix. Recent echocardiogram showed improvement from prior echo. Will discuss with cardiology. Patient would benefit with cardiac rehab as an outpatient. Diabetes mellitus type 2 insulin-dependent: Encourage oral intake. A1c well controlled. Continue to hold metformin due to chronic renal disease. Continue to adjust basal insulin. Will monitor for hypoglycemia Depression with anxiety: Continue medication-Lexapro and trazodone. Hypertension: Continue to adjust medication for better control. Will add Norvasc. Continue with hydralazine, metoprolol and Cardura. Anorexia with poor oral intake, moderate malnutrition: Dietary to assess daily needs. Continue encourage oral intake. Will increase Glucerna 3 times a day. Hyperlipidemia: Continue medication Lipitor Time Spent Managing Pts Care (In Minutes): 55
[2020-05-29] MEDS: POLYVINYL ALCOHOL 1.4% 15 ML EACH EYE PRN (09:52)
--- NOTE | 2020-05-29 10:31 | CON ---
Date of Consultation: 05/28/2020 Reason For Consultation: Abdominal pain. History Of Present Illness: The patient is a 65-year-old gentleman, who was admitted on the because of a fall injury. He had T12 and L3 fracture. 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 Tumor was benign. The heart surgery was a 4-vessel bypass and he was foun d to be anemic, and he fell and came to the ER. He has had a full GI workup for the anemia and he wa s doing well. He was in stable condition until yesterday, increased pain in the abdomen. He has fra ctures of the T12 and L3, which are being managed medically at this time. He had abdominal x-ray, wh ich showed ileus and I was asked to evaluate. He is awake and alert. No nausea or vomiting today. He has not had a bowel movement in several days. He is not passing gas. Pain is colicky in nature. Review of Systems: Otherwise unremarkable. Past Medical History: Reviewed and significant for diabetes, coronary artery disease, hypertension, hyperlipidemia, COPD. Past Surgical History: Knee surgery, hernia surgery, hip surgery, CABG. Allergies: NEXIUM. Social History: The patient used to smoke. Does not drink alcohol. Family History: Significant for heart disease and cancer of unknown type, Parkinson and diabetes. Physical Examination: Vital Signs: Today are stable. He is afebrile. General: He is awake, alert, and oriented x3. Head and Neck: Cranial nerves 2 through 12 are grossly within normal limits. No neck masses. No JV D. Throat clear. Neck is supple. Chest: Clear. Heart: S1, S2. Abdomen: Soft, nondistended, nontender. Positive bowel sounds. Extremities: Neurovascularly intact. Neuro: Nonfocal. Laboratory Data: His white count is 8.8, H and H are 10.6 and 30.8. There is slight left shift at 7 6.6%. INR is 1.00. Chemistry reviewed. BUN and creatinine are slightly elevated. CT of the abdome n and pelvis is reviewed last night after it was done with Dr. Latham and essentially it showed the 2 fractures with GI symptoms were unremarkable. There was moderate amount of stool within the right portion of the transverse colon and the L3 and T12 fracture are associated with narrowing of the spi nal canal. Assessment: Abdominal pain, most likely secondary to opioid-induced constipation. The patient is on pain medication for his back injury. Recommendation would be to start with magnesium citrate and en emas if needed, clear liquids and high-fiber diet. Consideration needs to be given with Neurosurgery regarding whether he needs intervention for his back injury or not, possibly a Neurology evaluation prior to that. No need for any surgical intervention at this time. We will follow the patient until he is able to eat and his bowel functions return. Plan of care discussed in detail with the as well as Dr. Michelle. /ERLIN Voice ID: [id number] Report ID: [id number]
[2020-05-29] MEDS: MORPHINE 2 MG/ML SYR IV PRN (10:40)
[2020-05-29] MEDS: ENOXAPARIN 40 MG/0.4 ML SQ SCH (10:40)
[2020-05-29] MEDS: LACTULOSE 20 GM/30 ML UCUP PO PRN (17:07)
[2020-05-29] MEDS: ALBUTEROL 2.5 MG/3 ML NEB SOL NEB PRN (19:45)
[2020-05-29] MEDS: IPRATROPIUM BROM 0.5MG/2.5ML NEB PRN (19:45)
[2020-05-29] MEDS: ATORVASTATIN 80 MG TAB PO SCH (21:00)
[2020-05-29] MEDS: GABAPENTIN 100 MG CAP PO PRN (21:29)
[2020-05-29] MEDS: INSULIN GLARGINE 100 UNITS/ML SQ SCH (21:30)
[2020-05-30] MEDS: IPRATROPIUM BROM 0.5MG/2.5ML NEB PRN ×3 (00:55→19:47)
[2020-05-30] MEDS: ALBUTEROL 2.5 MG/3 ML NEB SOL NEB PRN ×3 (00:55→19:47)
[2020-05-30] MEDS ORDERED: FAMOTIDINE 20 MG/2 ML VIAL IV ONE (01:52)
[2020-05-30 04:26] LABS: Absolute Lymphocytes (CBC) 0.9 K/uL (0.7-4.9); Basophils % 0.5 % (0-1.3); Hematocrit 29.9 % (39.6-49.0); Lymphocytes % 11.4 % (15.3-44.8); MPV 9.8 fL (7.6-11.3); RBC Red Blood Cell Count 4.09 M/uL (4.33-5.43)
[2020-05-30 04:34] LABS: Magnesium 2.1 mg/dL (1.8-2.4); Potassium 3.6 mmol/L (3.5-5.1)
[2020-05-30] MEDS: LACTULOSE 20 GM/30 ML UCUP PO PRN ×2 (04:41→14:16)
[2020-05-30] MEDS ORDERED: POTASSIUM 25 MEQ EFFERV TAB PO ONE (04:52)
[2020-05-30] MEDS: INSULIN -REGULAR HUMAN 50 UNIT/0.5 ML ML SQ SCH ×4 (07:30→21:00)
[2020-05-30] MEDS: ONDANSETRON 4 MG/2 ML VIAL IV PRN ×3 (07:50→21:23)
[2020-05-30] MEDS: MORPHINE 2 MG/ML SYR IV PRN (07:56)
[2020-05-30] MEDS: CALCITROL 0.25 MCG CAP PO SCH (08:00)
[2020-05-30] MEDS: PANTOPRAZOLE 40MG TABLET PO SCH (08:00)
[2020-05-30] MEDS: CLOPIDOGREL 75 MG TABLET PO SCH (08:00)
[2020-05-30] MEDS: HYDRALAZINE HCL 25 MG TABLET PO SCH ×3 (08:00→21:22)
[2020-05-30] MEDS: AMLODIPINE 10 MG TAB PO SCH (08:01)
[2020-05-30] MEDS: FOLIC ACID 1 MG TABLET PO SCH (08:01)
[2020-05-30] MEDS: DOXAZOSIN 2 MG TAB PO SCH ×2 (08:01→21:00)
[2020-05-30] MEDS: METOPROLOL XL 100 MG TAB PO SCH ×2 (08:01→21:22)
[2020-05-30] MEDS: VITAMIN D 5,000 UNIT CAP PO SCH (08:01)
[2020-05-30] MEDS: FUROSEMIDE 20 MG TABLET PO SCH (08:01)
[2020-05-30] MEDS: ESCITALOPRAM 20 MG TAB PO SCH (08:02)
[2020-05-30] MEDS: GLUCERNA SHAKE 237 ML CAN PO SCH ×3 (08:02→20:51)
[2020-05-30] MEDS: LIDOCAINE 4% PATCH TOP SCH (08:02)
[2020-05-30] MEDS: CALCITONIN NASAL SPRAY 200 IU/DOSE NAS SCH (08:02)
[2020-05-30] MEDS: ENOXAPARIN 40 MG/0.4 ML SQ SCH (08:02)
[2020-05-30] MEDS: FERROUS SULFATE 325 MG TAB PO SCH ×2 (08:02→21:23)
[2020-05-30] MEDS: POLYVINYL ALCOHOL 1.4% 15 ML EACH EYE PRN (08:50)
[2020-05-30] MEDS ORDERED: levoFLOXacin 500 MG TAB PO SCH (09:00)
--- NOTE | 2020-05-30 10:29 | P.PN ---
Date of Service: 05/30/20 Vital Signs Temp Pulse Resp BP Pulse Ox 98.1 F 63 17 157/83 H 95 05/30/20 08:00 05/30/20 08:01 05/30/20 08:00 05/30/20 08:01 05/30/20 08:00 Medications Acetaminophen (Tylenol -Extra Strength) 500 mg PO Q4HP PRN PRN Reason: Pain/fever Stop: 06/16/20 12:45 Last Admin: 05/24/20 00:42 Dose: 500 mg Documented by: Acetaminophen/Codeine Phosphate (Tylenol W/Codeine #3 Tab) 1 tab PO Q6H PRN PRN Reason: Pain scale 5-7 (Moderate) Stop: 06/22/20 21:31 Last Admin: 05/27/20 14:11 Dose: 1 tab Documented by: Albuterol Sulfate (Proventil 0.083% Neb Soln) 2.5 mg NEB Q6HP PRN PRN Reason: SHORTNESS OF BREATH Stop: 06/26/20 11:26 Last Admin: 05/30/20 08:08 Dose: 2.5 mg Documented by: Amlodipine Besylate (Norvasc) 10 mg PO DAILY [facility] Stop: 06/28/20 09:01 Last Admin: 05/30/20 08:01 Dose: 10 mg Documented by: Artificial Tears (Liquiflim Tears 1.4% Ophth [place]) 1 drops EACH EYE TIDP PRN PRN Reason: eye redness Stop: 06/27/20 16:33 Last Admin: 05/30/20 08:50 Dose: 1 drops Documented by: Atorvastatin Calcium (Lipitor) 80 mg PO BEDTIME [facility] Stop: 06/19/20 21:01 Last Admin: 05/29/20 21:00 Dose: Not Given Documented by: Calcitonin [place] (Miacalcin Nasal [place]) 1 sprays GEMA DAILY [facility] Stop: 06/25/20 18:01 Last Admin: 05/30/20 08:02 Dose: 1 sprays Documented by: Calcitriol (Rocaltrol) 0.5 mcg PO DAILY [facility] Stop: 06/23/20 09:01 Last Admin: 05/30/20 08:00 Dose: 0.5 mcg Documented by: Cholecalciferol (Vitamin D 5,000 Iu Cap) 5,000 unit PO DAILY [facility] Stop: 06/23/20 09:01 Last Admin: 05/30/20 08:01 Dose: 5,000 unit Documented by: Clopidogrel Bisulfate (Plavix) 75 mg PO DAILY [facility] Stop: 06/20/20 09:01 Last Admin: 05/30/20 08:00 Dose: 75 mg Documented by: Dextrose (Dextrose 50% Syringe/Vial) 12.5 gm IV PRN PRN; Protocol PRN Reason: HYPOGLYCEMIA Stop: 06/16/20 21:03 Docusate Sodium (Colace Cap) 100 mg PO DAILY PRN PRN Reason: CONSTIPATION Stop: 06/25/20 16:42 Last Admin: 05/26/20 17:00 Dose: 100 mg Documented by: Doxazosin Mesylate (Cardura) 4 mg PO BID [facility] Stop: 06/25/20 21:01 Last Admin: 05/30/20 08:01 Dose: 4 mg Documented by: Enoxaparin Sodium (Lovenox 40 Mg Inj) 40 mg SQ DAILY [facility] Stop: 06/17/20 09:01 Last Admin: 05/30/20 08:02 Dose: 40 mg Documented by: Enteral Nutritional Formula (Glucerna Shake) 237 ml PO TID [facility] Stop: 06/26/20 14:01 Last Admin: 05/30/20 08:02 Dose: Not Given Documented by: Escitalopram Oxalate (Lexapro) 20 mg PO DAILY [facility] Stop: 06/20/20 09:01 Last Admin: 05/30/20 08:02 Dose: 20 mg Documented by: Ferrous Sulfate (Feosol) 325 mg PO BID [facility] Stop: 06/27/20 09:01 Last Admin: 05/30/20 08:02 Dose: 325 mg Documented by: Folic Acid (Folic Acid) 1 mg PO DAILY [facility] Stop: 06/27/20 09:01 Last Admin: 05/30/20 08:01 Dose: 1 mg Documented by: Gabapentin (Neurontin) 100 mg PO TID PRN PRN Reason: Pain scale 2-4 (Mild) Stop: 06/25/20 21:01 Last Admin: 05/29/20 21:29 Dose: 100 mg Documented by: Glucagon (Glucagen) 1 mg IM 1X PRN; Protocol PRN Reason: HYPOGLYCEMIA Stop: 06/16/20 21:03 Hydralazine HCl (Apresoline) 10 mg IV Q4HP PRN PRN Reason: FOR SBP>160 OR DBP>100 MMHG Stop: 06/17/20 17:15 Last Admin: 05/29/20 12:23 Dose: 10 mg Documented by: Hydralazine HCl (Apresoline) 50 mg PO TID [facility] Stop: 06/25/20 14:01 Last Admin: 05/30/20 08:00 Dose: 50 mg Documented by: Insulin Glargine (Lantus) 5 units SQ BEDTIME [facility] Stop: 06/24/20 21:01 Last Admin: 05/29/20 21:30 Dose: 5 units Documented by: Insulin Human Regular (Novolin -R) 0 unit SQ ACHS [facility]; Protocol Stop: 06/18/20 21:20 Last Admin: 05/30/20 07:30 Dose: Not Given Documented by: Ipratropium [place] (Atrovent Neb) 0.5 mg NEB [id number] PRN PRN Reason: SHORTNESS OF BREATH Stop: 06/18/20 20:55 Last Admin: 05/30/20 08:08 Dose: 0.5 mg Documented by: Lactulose (Cephulac) 10 gm PO BIDP PRN PRN Reason: CONSTIPATION Stop: 06/28/20 09:37 Last Admin: 05/30/20 04:41 Dose: 10 gm Documented by: Levofloxacin (Levaquin) 500 mg PO DAILY [facility]; Protocol Stop: 06/29/20 09:01 Last Admin: 05/30/20 08:00 Dose: 500 mg Documented by: Lidocaine (Aspercreme 4% Patch) 1 patch TOP DAILY [facility] Stop: 06/24/20 09:01 Last Admin: 05/30/20 08:02 Dose: 1 patch Documented by: Metoprolol Succinate (Toprol Xl) 100 mg PO BID [facility] Stop: 06/24/20 21:01 Last Admin: 05/30/20 08:01 Dose: 100 mg Documented by: Morphine Sulfate (Morphine Sulfate) 2 mg IV TID PRN PRN Reason: Pain scale 5-7 (Moderate) Stop: 06/28/20 14:01 Last Admin: 05/30/20 07:56 Dose: 2 mg Documented by: Ondansetron HCl (Zofran) 4 mg IV Q4H PRN PRN Reason: NAUSEA / VOMITING Stop: 06/27/20 12:45 Last Admin: 05/30/20 07:50 Dose: 4 mg Documented by: Pantoprazole Sodium (Protonix Tab) 40 mg PO ACB [facility]; Protocol Stop: 06/23/20 16:01 Last Admin: 05/30/20 08:00 Dose: 40 mg Documented by: Potassium Chloride (Klor-Con 10 Meq Tab) 20 meq PO 1X ONE Stop: 05/30/20 14:01 Sodium Chloride (Normal Saline Flush) 10 ml IV BID [facility] Stop: 06/16/20 21:01 Last Admin: 05/30/20 08:02 Dose: 10 ml Documented by: Tramadol HCl (Ultram) 50 mg PO TID PRN PRN Reason: PAIN Stop: 06/23/20 14:53 Last Admin: 05/27/20 18:45 Dose: 50 mg Documented by: Trazodone HCl (Desyrel) 100 mg PO BEDTIME PRN PRN PRN Reason: INSOMNIA Stop: 06/24/20 20:39 Last Admin: 05/25/20 20:51 Dose: 100 mg Documented by: Microbiology Results 05/17/20 11:09 Nasopharnyx Influenza Type A Antigen Screen - Final 05/17/20 11:09 Nasopharnyx Influenza Type B Antigen Screen - Final Assessment/ Plan: Nephrology CPS stable without CP or SOB. No acute events overnight. Doing well. Vitals, medications, blood work and imaging reviewed in the chart. NAD. MMM. Neck supple. CTA. RRR. Soft Abd. No C/C/E. No rash. AAO. Normal Speech. 05/17/20 07:47: PT 11.8, INR 1.00, APTT 26.8 05/17/20 07:47: WBC 14.5 H, Hgb 8.2 L, Hct 24.9 L, Plt Count 198 05/17/20 07:47: Sodium 142, Potassium 3.7, BUN 46 H, Creatinine 1.83 H, Glucose 150 H, Total Bilirubin 0.9, AST 33, ALT 44, Alkaline Phosphatase 67, Lipase 86 Imagings Data: EXAM DESCRIPTION: CT - Head C Spine Cap Wo Con - 05/17/2020 8:12 am TECHNIQUE: Computed axial tomography of the head and cervical spine was obtained. Coronal and sagittal reconstruction was performed Computed axial tomography of the chest, abdomen and pelvis was obtained. Contras t was not requested. All CT scans are performed using dose optimization technique as appropriate and may include automated exposure control or mA/KV adjustment according to patient size. CLINICAL HISTORY: Head and neck injury with chest and abdominal pain status post fall COMPARISON: CT chest 2018 FINDINGS: An intracranial bleed is not seen. Low-density within the right internal capsule/basal ganglia has the appearance of an old lacunar infarction. 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 The ventricles are normal in caliber. An extra-axial fluid collection is not noted. . Opacification of the left mastoid. This may indicate mastoiditis and should be correlated clinically. A cervical fracture is not seen. No dislocation is noted. Spondylosis involves the cervical spine resulting central and foraminal stenosis The evaluation of mediastinum, tiffany, vessels, solid organs and bowel are limited secondary to the lack of contrast administration. A mediastinal hematoma is not noted. A pleural effusion is not seen. A lung contusion is not present. The liver,spleen, pancreas, adrenals,kidneys and bladder the do not demonstrate a traumatic injury Right renal cyst Mild acute compression fracture T12 vertebral body. Minimal retropulsion of fracture fragment into the spinal canal. The vertebral body is approximately 87% normal height Mild acute compression fracture L3 vertebral body. Vertebral body is approximately 85% normal height Trace amount of free fluid within the pelvis IMPRESSION: 1. No acute intracranial abnormality is seen. 2. A cervical fracture is not visualized. If the patient continues have symptoms to suggest intracranial/spinal cord pathology MRI be recommended 3. No traumatic abnormality involving the chest 4. Mild acute compression fractures T12 and L3 vertebral bodies EXAM DESCRIPTION: [facility] Single View05/17/2020 8:19 am CLINICAL HISTORY: Chest pain COMPARISON: July 2019 FINDINGS: The lungs appear clear of acute infiltrate. The heart is mildly enlarged. Postsurgical changes involve the chest. IMPRESSION: No acute abnormalities displayed Conclusions/Impression: A/ OSCAR in the setting of hypovolemia Hypokalemia HTN uncontrolled DM II GI bleed. P/ Continue current POC and Medications Continue Doxazosin and Metoprolol. Discontinue furosemide due to worsening CKD. Follow up with GI. Plan for outpt pill cam. Transfuse PRBC as needed. Encourage nutrition as tolerated. Recommend PT as tolerated. No NSAIDs. AM labs. Daily weight. Case reviewed with Dr. Seth. Plan for SNF.
[2020-05-30] MEDS ORDERED: dexAMETHasone 4 MG/ML VIAL IV ONE (11:08)
[2020-05-30] MEDS ORDERED: POTASSIUM CL SA 10 MEQ TAB PO ONE (14:00)
--- NOTE | 2020-05-30 19:13 | PN ---
Date of Progress Note: 05/30/2020 Subjective: The patient is awake, alert. No new complaints. He has not had a bowel movement. He i s being given lactulose without any help with his constipation. Objective: Vital Signs: Stable. Afebrile. Abdomen: Soft, nondistended, nontender. Positive bowel sounds. Assessment: Opioid-induced constipation and fracture of T12 and L3. Recommendations: Physical therapy as ordered. Discussed the case with Dr. Seth. We will try magnes ium citrate. Keep him on clear liquids for the time being. /MODL Voice ID: [id number] Report ID: [id number]
[2020-05-30] MEDS: ATORVASTATIN 80 MG TAB PO SCH (21:22)
[2020-05-30] MEDS: INSULIN GLARGINE 100 UNITS/ML SQ SCH (21:22)
[2020-05-30] MEDS: CODEINE 30MG/APAP 300MG TAB PO PRN (21:23)
--- NOTE | 2020-05-31 00:58 | CON ---
Consultation called because of thoracic and lumbar compression fractures. History Of Present Illness: Mr. Anderson is a 65-year-old patient with multiple medical problems, admi tted to the hospital over a week with syncope due to bradycardia, coronary artery bypass history, lef t lung base pneumonia, acute anemia, urinary retention, chronic renal disease stage 3, chronic systol ic congestive heart failure, diabetes mellitus type 2, depression, hypertension, dyslipidemia, who pérez s a T12 and L2 compression fracture. The patient has significant pain rated at 12/10. He has had se maxim pain which has not yet been medicated. This finding was discussed actually with the hospitalist , Dr. Seth, and there was a plan to institute a Lidoderm patch in the back along with low-dose [place] scheduled and muscle relaxant. The patient will likely be a candidate for care home given his severe level of pain unless the pain can be addressed. The possibility for kyphoplasty was also discussed, but it is not available a t this [facility]. Past Medical History: As indicated. Allergies: NEXIUM. Home Medications: Lipitor 80 mg at bedtime, Plavix 75 mg daily, Cardura 2 mg at bedtime, Lexapro 20 mg daily, ferrous sulfate 325 mg twice daily, Lasix 40 mg twice daily, Novolin N 10 units subcutaneou sly daily, Novolin R 8 units subcutaneously daily, metformin 500 mg twice daily, metoprolol 50 mg twi ce daily, Desyrel 100 mg at bedtime. Surgical History: Knee surgery, incision and drainage of right buttock abscess hiatal hernia repair, left bipolar hemiarthroplasty, hip surgery, and coronary artery bypass grafting. Family History: Parkinson disease in father along with heart disease, hypertension, lung disease, GI disease, diabetes and cancer. Mother had heart disease, hypertension, diabetes, and cancer. Sister with cancer. Social History: No alcohol, tobacco, or IV drug use. The patient lives alone. Review of Systems: Otherwise mentioned above. Review of systems is negative. Physical Examination: Vital Signs: Blood pressure 127/63, pulse 69, respiratory rate 18, temperature 97.6, oxygen saturati on 95%. Weight 160 pounds and height 6 feet. BMI 21.7. General: Mr. Anderson is resting in bed. He reports pain at 12/10 in the low back at compression frac ture sites. HEENT: Otherwise in terms of general examination, he is normocephalic and atraumatic. Sclerae anicteric. Oropharynx is moist and pink. Neck: Supple. He does have pain in vertebral areas T12 and L3 by palpation in the lower back. Extremities: He does have equal movements in the legs and the arms despite the pain. Strength is li mited because of pain in the lower extremities more than upper extremities. Sensation, stocking-glov e loss, light touch and temperature. Coordination slow, but intact in upper and lower extremities. Gait, he will be ambulated with help of physical therapy and after pain is managed. Assessment: Mr. Anderson is 65-year-old patient with T12 and L3 compression fractures. Ideally, he ma y benefit from kyphoplasty, however, it is not available at this hospital. Plan: 1.Pain management with Lidoderm patch, low-dose [place] 5/325 every 4 hours as needed, muscle relaxant . May use baclofen or methocarbamol twice daily. 2.Consider care home for physical therapy with pain management. 3.The patient may not be able to withstand 3.5 hours of physical therapy if his pain is not managed in the acute inpatient rehabilitation unit. 4.Aggressive management of all of his comorbid conditions, which are managed by his primary team. MELISSA/ERLIN Voice ID: [id number] Report ID: [id number]
[2020-05-31] MEDS: IPRATROPIUM BROM 0.5MG/2.5ML NEB PRN ×4 (01:00→20:35)
[2020-05-31] MEDS: ALBUTEROL 2.5 MG/3 ML NEB SOL NEB PRN ×4 (01:00→20:35)
[2020-05-31] MEDS: LACTULOSE 20 GM/30 ML UCUP PO PRN (02:53)
[2020-05-31 04:36] LABS: Potassium 3.9 mmol/L (3.5-5.1)
[2020-05-31] MEDS: ONDANSETRON 4 MG/2 ML VIAL IV PRN ×3 (06:21→20:23)
[2020-05-31] MEDS: INSULIN -REGULAR HUMAN 50 UNIT/0.5 ML ML SQ SCH ×4 (07:30→20:24)
[2020-05-31] MEDS: PANTOPRAZOLE 40MG TABLET PO SCH (08:13)
[2020-05-31] MEDS: GLUCERNA SHAKE 237 ML CAN PO SCH ×3 (09:00→20:24)
[2020-05-31] MEDS: HYDRALAZINE HCL 25 MG TABLET PO SCH ×3 (09:00→20:22)
[2020-05-31] MEDS: ESCITALOPRAM 20 MG TAB PO SCH (09:00)
[2020-05-31] MEDS: CLOPIDOGREL 75 MG TABLET PO SCH (09:00)
[2020-05-31] MEDS: DOXAZOSIN 2 MG TAB PO SCH ×2 (09:00→20:24)
[2020-05-31] MEDS: levoFLOXacin 250 MG TAB PO SCH (09:00)
[2020-05-31] MEDS: FOLIC ACID 1 MG TABLET PO SCH (09:00)
[2020-05-31] MEDS: CALCITROL 0.25 MCG CAP PO SCH (09:00)
[2020-05-31] MEDS: LIDOCAINE 4% PATCH TOP SCH (09:00)
[2020-05-31] MEDS: METOPROLOL XL 100 MG TAB PO SCH ×2 (09:00→20:22)
[2020-05-31] MEDS: VITAMIN D 5,000 UNIT CAP PO SCH (09:00)
[2020-05-31] MEDS: FERROUS SULFATE 325 MG TAB PO SCH ×2 (09:00→20:22)
[2020-05-31] MEDS ORDERED: POTASSIUM CL SA 10 MEQ TAB PO ONE (09:00)
[2020-05-31] MEDS: AMLODIPINE 10 MG TAB PO SCH (09:00)
[2020-05-31] MEDS: TRAMADOL HCL 50 MG TAB PO PRN (09:08)
[2020-05-31] MEDS: MORPHINE 2 MG/ML SYR IV PRN (09:14)
[2020-05-31] MEDS: CALCITONIN NASAL SPRAY 200 IU/DOSE NAS SCH (10:32)
[2020-05-31] MEDS: ENOXAPARIN 40 MG/0.4 ML SQ SCH (10:33)
[2020-05-31] MEDS ORDERED: dexAMETHasone 4 MG/ML VIAL IV ONE (11:46)
[2020-05-31] MEDS ORDERED: MAGNESIUM CITRATE 300 ML BOT PO SCH (12:00)
--- NOTE | 2020-05-31 12:21 | PN ---
Date of Progress Note: 05/31/2020 Subjective: The patient is awake alert. Had a small bowel movement yesterday. Objective: Vital Signs: Stable. Afebrile. Abdomen: Soft, nondistended, nontender. Positive bowel sounds. Assessment: Ileus secondary to opiates and fracture the back. Recommendations: Advance diet to a high-fiber diet as tolerated. Encourage ambulation and discharge planning. Reconsult Surgery tara NAVARRO/ERLIN Voice ID: [id number] Report ID: [id number]
[2020-05-31] MEDS: INSULIN GLARGINE 100 UNITS/ML SQ SCH (20:23)
[2020-05-31] MEDS: CODEINE 30MG/APAP 300MG TAB PO PRN (20:23)
[2020-05-31] MEDS: ATORVASTATIN 80 MG TAB PO SCH (20:30)
[2020-05-31] MEDS: TRAZODONE 50 MG TABLET PO PRN (21:28)
[2020-06-01] MEDS: ALBUTEROL 2.5 MG/3 ML NEB SOL NEB PRN ×3 (01:40→13:00)
[2020-06-01] MEDS: IPRATROPIUM BROM 0.5MG/2.5ML NEB PRN ×3 (01:40→13:00)
[2020-06-01] MEDS: ONDANSETRON 4 MG/2 ML VIAL IV PRN ×3 (02:24→12:44)
[2020-06-01 06:06] LABS: Absolute Lymphocytes (CBC) 1.1 K/uL (0.7-4.9); Basophils % 0.5 % (0-1.3); Hematocrit 28.5 % (39.6-49.0); Lymphocytes % 17.4 % (15.3-44.8); MPV 9.4 fL (7.6-11.3); RBC Red Blood Cell Count 3.99 M/uL (4.33-5.43)
[2020-06-01 06:19] LABS: Albumin 2.1 g/dL (3.4-5.0); Bilirubin Total 0.3 mg/dL (0.2-1.0); Magnesium 2.6 mg/dL (1.8-2.4); Potassium 4.1 mmol/L (3.5-5.1); Protein, Total 5.1 g/dL (6.4-8.2)
[2020-06-01] MEDS: INSULIN -REGULAR HUMAN 50 UNIT/0.5 ML ML SQ SCH ×4 (07:30→22:13)
[2020-06-01 08:23] LABS: Blood Morphology Comment NOTED (NOT SEEN); Platelet Estimate ADEQ; White Blood Cell Scan OK (OK)
[2020-06-01 08:24] LABS: Anisocytosis 2+
[2020-06-01 08:25] LABS: Burr Cells 1+; Rouleau SLIGHT
[2020-06-01] MEDS: CALCITONIN NASAL SPRAY 200 IU/DOSE NAS SCH (09:00)
[2020-06-01] MEDS: LIDOCAINE 5% OINT 30 GM TUBE TOP SCH (09:03)
[2020-06-01] MEDS: LIDOCAINE 4% PATCH TOP SCH (09:04)
[2020-06-01] MEDS: ENOXAPARIN 40 MG/0.4 ML SQ SCH (09:04)
[2020-06-01] MEDS: DOXAZOSIN 2 MG TAB PO SCH ×2 (09:04→22:10)
[2020-06-01] MEDS: PANTOPRAZOLE 40MG TABLET PO SCH (09:04)
[2020-06-01] MEDS: FERROUS SULFATE 325 MG TAB PO SCH ×2 (09:05→22:10)
[2020-06-01] MEDS: VITAMIN D 5,000 UNIT CAP PO SCH (09:05)
[2020-06-01] MEDS: TRAMADOL HCL 50 MG TAB PO PRN (09:05)
[2020-06-01] MEDS: DOCUSATE NA 100 MG CAP PO PRN (09:05)
[2020-06-01] MEDS: AMLODIPINE 10 MG TAB PO SCH (09:05)
[2020-06-01] MEDS: GABAPENTIN 100 MG CAP PO PRN (09:05)
[2020-06-01] MEDS: FOLIC ACID 1 MG TABLET PO SCH (09:06)
[2020-06-01] MEDS: HYDRALAZINE HCL 25 MG TABLET PO SCH ×3 (09:06→22:10)
[2020-06-01] MEDS: METOPROLOL XL 100 MG TAB PO SCH ×2 (09:06→22:09)
[2020-06-01] MEDS: CLOPIDOGREL 75 MG TABLET PO SCH (09:06)
[2020-06-01] MEDS: CALCITROL 0.25 MCG CAP PO SCH (09:07)
[2020-06-01] MEDS: GLUCERNA SHAKE 237 ML CAN PO SCH ×3 (09:07→22:13)
[2020-06-01] MEDS: ESCITALOPRAM 20 MG TAB PO SCH (09:07)
[2020-06-01] MEDS: levoFLOXacin 250 MG TAB PO SCH (09:07)
--- NOTE | 2020-06-01 11:07 | PN ---
Date of Progress Note: 06/01/2020 Subjective: The patient complaining still of abdominal pain. No nausea or vomiting. Tolerating his liquids once his diet advanced. He was given Mag citrate but not resolved. Objective: Vital Signs: His vitals are stable, afebrile. Abdomen: Soft, nondistended, nontender. Positive bowel sounds. Laboratory Data: Reviewed. Assessment: Constipation and abdominal pain secondary to opiates and fracture of the back. Recommendation: Continue with high-fiber diet. The patient is supposed to get a soapsuds enema, hop efully that will work. Continue physical therapy and management per the medical team. No need for a ny surgical intervention at this time. /MODL Voice ID: [id number] Report ID: [id number]
[2020-06-01] MEDS ORDERED: dexAMETHasone 4 MG/ML VIAL IV ONE (11:48)
[2020-06-01] MEDS ORDERED: TAMSULOSIN 0.4 MG SR CAP PO ONE (11:49)
--- NOTE | 2020-06-01 11:53 | P.PN ---
Subjective Date of Service: 05/30/20 Patient has declined once again over the week. Patient had a Holcomb catheter placed. He is not voiding on his own. Patient still not eating that well. He has had about bowel movements so will give him a laxative today. If that does not benefit and then will give him a enema. Family did not want a feeding tube at this time. His caloric intake is very minimal. He continues to have nausea. His been seen by GI and has had endoscopies. This did not reveal any significant pathology. Patient did have hemorrhoids and a hiatal hernia along with some possible gastritis but no other pathology was seen. Patient did have some stool in the ascending colon. Review of Systems 10-point ROS is otherwise unremarkable Physical Examination - Vital Signs Temperature: 97.7 F Blood Pressure: 140/65 Pulse: 65 Respirations: 19 Pulse Ox (%): 97 - Physical Exam General: Alert, In no apparent distress, Oriented x3 Respiratory: Diminished, Expiratory wheezes Cardiovascular: Regular rate/rhythm, Normal S1 S2, Systolic murmur Gastrointestinal: Normal bowel sounds, Soft and benign, Non-distended, No tenderness Musculoskeletal: No clubbing, No swelling Integumentary: No rashes Neurological: Normal speech, Normal tone, Sensation intact, Cranial nerves 3-12 intact, Abnormal strength - Studies Medications List Reviewed: Yes Assessment & Plan - Problems (Diagnosis) (1) Syncope and collapse Current Visit: Yes Status: Acute (2) Bradycardia Current Visit: Yes Status: Acute (3) GI bleed Current Visit: Yes Status: Acute (4) Cardiomyopathy Current Visit: Yes Status: Acute (5) Weight loss Current Visit: Yes Status: Acute (6) Depression Current Visit: No Status: Acute (7) Diabetes Current Visit: No Status: Acute (8) Weakness generalized Current Visit: No Status: Acute (9) Hypertension Onset Date: 11/05/16 Current Visit: No Status: Chronic Qualifiers: Hypertension type: essential hypertension Qualified Code(s): I10 - Essential (primary) hypertension (10) Anorexia Current Visit: Yes Status: Acute (11) Cachexia Current Visit: Yes Status: Acute (12) BPH (benign prostatic hyperplasia) Current Visit: Yes Status: Acute (13) Urinary retention Current Visit: Yes Status: Acute - Plan Plan: Continue with plan of care as mentioned below: 1. Continue with gentle IV hydration; once he starts improving then we will Dc the IV fluids. He may need a PEG tube placed until appetite improves. Continue with PPI orally. Upper GI with moderate gastroesophageal reflux disease 2. Echocardiogram revealed ejection fraction of 40% which is improved from before; monitor volume status closely. Patient remains anemic. Monitor H&H closely. 3. He also needs to get his strength built. We are working with physical therapy to try to assist in that. Family does not want go to a nursing facility so we definitely need to try to get the strength built up here in the hospital prior to discharge. 4. We have held any medication that can make him sedated. He needs to get up out of bed and start doing more with physical activity. 5. Appreciate speech therapy recommendations. He needs to increase his caloric intake. 6. Renal function continues to improve. Appreciate Nephrology assistance 7. Continue monitoring electrolytes closely 8. Appreciate physical therapy and speech therapy evaluation 9. GI and DVT prophylaxis - Advance Directives Does patient have a Living Will: No Does patient have a Durable POA for Healthcare: No - Code Status/Comfort Care Code Status: Full Code
[2020-06-01] MEDS: CODEINE 30MG/APAP 300MG TAB PO PRN (12:41)
[2020-06-01] MEDS: TAMSULOSIN 0.4 MG SR CAP PO SCH (22:09)
[2020-06-01] MEDS: ATORVASTATIN 80 MG TAB PO SCH (22:11)
[2020-06-01] MEDS: TRAZODONE 50 MG TABLET PO PRN (22:12)
[2020-06-01] MEDS: INSULIN GLARGINE 100 UNITS/ML SQ SCH (22:12)
[2020-06-02] MEDS: HYDRALAZINE HCL 20 MG/ML VIAL IV PRN (05:20)
[2020-06-02] MEDS: ONDANSETRON 4 MG/2 ML VIAL IV PRN ×2 (08:56→16:36)
[2020-06-02] MEDS: AMLODIPINE 10 MG TAB PO SCH (08:57)
[2020-06-02] MEDS: DOXAZOSIN 2 MG TAB PO SCH ×2 (08:57→21:00)
[2020-06-02] MEDS: FOLIC ACID 1 MG TABLET PO SCH (08:57)
[2020-06-02] MEDS: CLOPIDOGREL 75 MG TABLET PO SCH (08:57)
[2020-06-02] MEDS: VITAMIN D 5,000 UNIT CAP PO SCH (08:57)
[2020-06-02] MEDS: LIDOCAINE 4% PATCH TOP SCH (08:57)
[2020-06-02] MEDS: METOPROLOL XL 100 MG TAB PO SCH ×2 (08:58→21:17)
[2020-06-02] MEDS: CALCITROL 0.25 MCG CAP PO SCH (08:58)
[2020-06-02] MEDS: ESCITALOPRAM 20 MG TAB PO SCH (08:58)
[2020-06-02] MEDS: HYDRALAZINE HCL 25 MG TABLET PO SCH ×3 (08:58→21:17)
[2020-06-02] MEDS: PANTOPRAZOLE 40MG TABLET PO SCH (08:58)
[2020-06-02] MEDS: levoFLOXacin 250 MG TAB PO SCH (08:58)
[2020-06-02] MEDS: TRAMADOL HCL 50 MG TAB PO PRN (08:59)
[2020-06-02] MEDS: FERROUS SULFATE 325 MG TAB PO SCH (08:59)
[2020-06-02] MEDS: CALCITONIN NASAL SPRAY 200 IU/DOSE NAS SCH (08:59)
[2020-06-02] MEDS: LIDOCAINE 5% OINT 30 GM TUBE TOP SCH (08:59)
[2020-06-02] MEDS: ENOXAPARIN 40 MG/0.4 ML SQ SCH (08:59)
[2020-06-02] MEDS: INSULIN -REGULAR HUMAN 50 UNIT/0.5 ML ML SQ SCH ×4 (09:00→21:00)
[2020-06-02] MEDS: GLUCERNA SHAKE 237 ML CAN PO SCH ×3 (09:00→21:19)
--- NOTE | 2020-06-02 10:17 | P.PN ---
Subjective Date of Service: 05/31/20 Patient with no significant changes. He did walk with physical therapy today. He needs a lot of encouragement to make can walk. I had pushed am encouraged him and he was able to walk to the door and back without any difficulty. He does have pain in his back area but this is controlled with medication. H opefully we can continue building his strength up. If patient is not accepted inpatient rehab then plan is to discharge him home with family. Review of Systems 10-point ROS is otherwise unremarkable Physical Examination - Vital Signs Temperature: 97.7 F Blood Pressure: 140/65 Pulse: 65 Respirations: 19 Pulse Ox (%): 97 - Physical Exam General: Alert, In no apparent distress, Oriented x3 Respiratory: Clear to auscultation bilaterally, Normal air movement Cardiovascular: Regular rate/rhythm, Normal S1 S2 Musculoskeletal: No clubbing, No swelling - Studies Medications List Reviewed: Yes Assessment & Plan - Problems (Diagnosis) (1) Syncope and collapse Current Visit: Yes Status: Acute (2) Bradycardia Current Visit: Yes Status: Acute (3) GI bleed Current Visit: Yes Status: Acute (4) Cardiomyopathy Current Visit: Yes Status: Acute (5) Weight loss Current Visit: Yes Status: Acute (6) Depression Current Visit: No Status: Acute (7) Diabetes Current Visit: No Status: Acute (8) Weakness generalized Current Visit: No Status: Acute (9) Hypertension Onset Date: 11/05/16 Current Visit: No Status: Chronic Qualifiers: Hypertension type: essential hypertension Qualified Code(s): I10 - Essential (primary) hypertension (10) Anorexia Current Visit: Yes Status: Acute (11) Cachexia Current Visit: Yes Status: Acute (12) BPH (benign prostatic hyperplasia) Current Visit: Yes Status: Acute (13) Urinary retention Current Visit: Yes Status: Acute - Plan Plan: Continue with plan of care as mentioned below: 1. Hep-Lock IV advanced diet as tolerated 2. Cardiac status is stable. Congestive heart failure is compensated 3. Continue aggressive management with physical therapy. Patient needs to be aggressively managed to ambulate and try to get himself to start doing more physically. Otherwise his prognosis is poor 4. Pain medication after he ambulates at this time. Continue lidocaine patch. Muscle extra as needed 5. Appreciate speech therapy recommendations. He needs to increase his caloric intake. 6. Renal function continues to improve. Appreciate Nephrology assistance 7. Continue monitoring electrolytes closely 8. GI and DVT prophylaxis Discharge Plan: Home Plan to discharge in: Greater than 2 days - Advance Directives Does patient have a Living Will: No Does patient have a Durable POA for Healthcare: No - Code Status/Comfort Care Code Status: Full Code Critical Care: No Time Spent Managing PTS Care (In Minutes): 35
--- NOTE | 2020-06-02 11:05 | PN ---
Date of Progress Note: 06/02/2020 Subjective: The patient is awake, alert, tolerating a regular diet. Had a bowel movement. Objective: Vital Signs: Stable. Afebrile. Abdomen: Benign. Assessment: Ileus, improved. Recommendations: Medical management. No need for any surgical intervention. Reconsult Surgery p.r. n. RAMON/ERLIN Voice ID: [id number] Report ID: [id number]
[2020-06-02] MEDS ORDERED: FAMOTIDINE 20 MG/2 ML VIAL IV ONE (13:19)
[2020-06-02] MEDS ORDERED: ALBUMIN HUMAN 25% 50 ML IV ONE (13:31)
[2020-06-02] MEDS ORDERED: FUROSEMIDE 20 MG/ 2ML VIAL IV ONE (13:31)
[2020-06-02 14:50] LABS: Potassium 4.2 mmol/L (3.5-5.1)
[2020-06-02] MEDS: MORPHINE 2 MG/ML SYR IV PRN (16:36)
--- NOTE | 2020-06-02 20:06 | P.PN ---
Date of Service: 05/31/20 Vital Signs Temp Pulse Resp BP Pulse Ox 97.4 F 60 18 134/60 94 06/02/20 16:00 06/02/20 16:00 06/02/20 17:06 06/02/20 16:00 06/02/20 17:06 Medications Acetaminophen (Tylenol -Extra Strength) 500 mg PO Q4HP PRN PRN Reason: Pain/fever Stop: 06/16/20 12:45 Last Admin: 05/24/20 00:42 Dose: 500 mg Documented by: Albuterol Sulfate (Proventil 0.083% Neb Soln) 2.5 mg NEB Q6HP PRN PRN Reason: SHORTNESS OF BREATH Stop: 06/26/20 11:26 Last Admin: 06/01/20 13:00 Dose: 2.5 mg Documented by: Amlodipine Besylate (Norvasc) 10 mg PO DAILY [facility] Stop: 06/28/20 09:01 Last Admin: 06/02/20 08:57 Dose: 10 mg Documented by: Artificial Tears (Liquiflim Tears 1.4% Ophth [place]) 1 drops EACH EYE TIDP PRN PRN Reason: eye redness Stop: 06/27/20 16:33 Last Admin: 05/30/20 08:50 Dose: 1 drops Documented by: Atorvastatin Calcium (Lipitor) 80 mg PO BEDTIME [facility] Stop: 06/19/20 21:01 Last Admin: 06/01/20 22:11 Dose: 80 mg Documented by: Calcitonin [place] (Miacalcin Nasal [place]) 1 sprays GEMA DAILY [facility] Stop: 06/25/20 18:01 Last Admin: 06/02/20 08:59 Dose: 1 sprays Documented by: Calcitriol (Rocaltrol) 0.5 mcg PO DAILY [facility] Stop: 06/23/20 09:01 Last Admin: 06/02/20 08:58 Dose: 0.5 mcg Documented by: Cholecalciferol (Vitamin D 5,000 Iu Cap) 5,000 unit PO DAILY [facility] Stop: 06/23/20 09:01 Last Admin: 06/02/20 08:57 Dose: 5,000 unit Documented by: Clopidogrel Bisulfate (Plavix) 75 mg PO DAILY [facility] Stop: 06/20/20 09:01 Last Admin: 06/02/20 08:57 Dose: 75 mg Documented by: Dextrose (Dextrose 50% Syringe/Vial) 12.5 gm IV PRN PRN; Protocol PRN Reason: HYPOGLYCEMIA Stop: 06/16/20 21:03 Docusate Sodium (Colace Cap) 100 mg PO DAILY PRN PRN Reason: CONSTIPATION Stop: 06/25/20 16:42 Last Admin: 06/01/20 09:05 Dose: 100 mg Documented by: Doxazosin Mesylate (Cardura) 4 mg PO BID [facility] Stop: 06/25/20 21:01 Last Admin: 06/02/20 08:57 Dose: 4 mg Documented by: Enoxaparin Sodium (Lovenox 40 Mg Inj) 40 mg SQ DAILY [facility] Stop: 06/17/20 09:01 Last Admin: 06/02/20 08:59 Dose: 40 mg Documented by: Enteral Nutritional Formula (Glucerna [place]) 237 ml PO TID [facility] Stop: 06/26/20 14:01 Last Admin: 06/02/20 14:34 Dose: 237 ml Documented by: Escitalopram Oxalate (Lexapro) 20 mg PO DAILY [facility] Stop: 06/20/20 09:01 Last Admin: 06/02/20 08:58 Dose: 20 mg Documented by: Folic Acid (Folic Acid) 1 mg PO DAILY [facility] Stop: 06/27/20 09:01 Last Admin: 06/02/20 08:57 Dose: 1 mg Documented by: Gabapentin (Neurontin) 100 mg PO TID PRN PRN Reason: Pain scale 2-4 (Mild) Stop: 06/25/20 21:01 Last Admin: 06/01/20 09:05 Dose: 100 mg Documented by: Glucagon (Glucagen) 1 mg IM 1X PRN; Protocol PRN Reason: HYPOGLYCEMIA Stop: 06/16/20 21:03 Hydralazine HCl (Apresoline) 10 mg IV Q4HP PRN PRN Reason: FOR SBP>160 OR DBP>100 MMHG Stop: 06/17/20 17:15 Last Admin: 06/02/20 05:20 Dose: 10 mg Documented by: Hydralazine HCl (Apresoline) 25 mg PO TID [facility] Stop: 07/02/20 14:01 Last Admin: 06/02/20 14:00 Dose: Not Given Documented by: Insulin Glargine (Lantus) 5 units SQ BEDTIME [facility] Stop: 06/24/20 21:01 Last Admin: 06/01/20 22:12 Dose: 5 units Documented by: Insulin Human Regular (Novolin -R) 0 unit SQ ACHS [facility]; Protocol Stop: 06/18/20 21:20 Last Admin: 06/02/20 16:30 Dose: Not Given Documented by: Ipratropium [place] (Atrovent Neb) 0.5 mg NEB [id number] PRN PRN Reason: SHORTNESS OF BREATH Stop: 06/18/20 20:55 Last Admin: 06/01/20 13:00 Dose: 0.5 mg Documented by: Lactulose (Cephulac) 10 gm PO BIDP PRN PRN Reason: CONSTIPATION Stop: 06/28/20 09:37 Last Admin: 05/31/20 02:53 Dose: 10 gm Documented by: Levofloxacin (Levaquin) 250 mg PO DAILY [facility]; Protocol Stop: 06/30/20 09:01 Last Admin: 06/02/20 08:58 Dose: 250 mg Documented by: Lidocaine (Aspercreme 4% Patch) 1 patch TOP DAILY [facility] Stop: 06/24/20 09:01 Last Admin: 06/02/20 08:57 Dose: 1 patch Documented by: Lidocaine HCl (Lidocaine 5% Ointment) 1 appl TOP DAILY [facility] Stop: 07/01/20 09:01 Last Admin: 06/02/20 08:59 Dose: 1 appl Documented by: Metoprolol Succinate (Toprol Xl) 100 mg PO BID [facility] Stop: 06/24/20 21:01 Last Admin: 06/02/20 08:58 Dose: 100 mg Documented by: Morphine Sulfate (Morphine Sulfate) 2 mg IV TID PRN PRN Reason: Pain scale 5-7 (Moderate) Stop: 06/28/20 14:01 Last Admin: 06/02/20 16:36 Dose: 2 mg Documented by: Ondansetron HCl (Zofran) 4 mg IV Q4H PRN PRN Reason: NAUSEA / VOMITING Stop: 06/27/20 12:45 Last Admin: 06/02/20 16:36 Dose: 4 mg Documented by: Pantoprazole Sodium (Protonix Tab) 40 mg PO ACB [facility]; Protocol Stop: 06/23/20 16:01 Last Admin: 06/02/20 08:58 Dose: 40 mg Documented by: Sodium Chloride (Normal Saline Flush) 10 ml IV BID [facility] Stop: 06/16/20 21:01 Last Admin: 06/02/20 09:00 Dose: 10 ml Documented by: Tamsulosin HCl (Flomax) 0.4 mg PO BEDTIME [facility] Stop: 07/01/20 21:01 Last Admin: 06/01/20 22:09 Dose: 0.4 mg Documented by: Trazodone HCl (Desyrel) 100 mg PO BEDTIME PRN PRN PRN Reason: INSOMNIA Stop: 06/24/20 20:39 Last Admin: 06/01/20 22:12 Dose: 100 mg Documented by: Microbiology Results 05/17/20 11:09 Nasopharnyx Influenza Type A Antigen Screen - Final 05/17/20 11:09 Nasopharnyx Influenza Type B Antigen Screen - Final Assessment/ Plan: Nephrology CPS stable without CP or SOB. No acute events overnight. Feeling better today. Vitals, medications, blood work and imaging reviewed in the chart. NAD. MMM. Neck supple. CTA. RRR. Soft Abd. No C/C/E. No rash. AAO. Normal Speech. 05/17/20 07:47: PT 11.8, INR 1.00, APTT 26.8 05/17/20 07:47: WBC 14.5 H, Hgb 8.2 L, Hct 24.9 L, Plt Count 198 05/17/20 07:47: Sodium 142, Potassium 3.7, BUN 46 H, Creatinine 1.83 H, Glucose 150 H, Total Bilirubin 0.9, AST 33, ALT 44, Alkaline Phosphatase 67, Lipase 86 Imagings Data: EXAM DESCRIPTION: CT - Head C Spine Cap Wo Con - 05/17/2020 8:12 am TECHNIQUE: Computed axial tomography of the head and cervical spine was obtai chris. Coronal and sagittal reconstruction was performed Computed axial tomography of the chest, abdomen and pelvis was obtained. Contrast was not requested. All CT scans are performed using dose optimization technique as appropriate and may include automated exposure control or mA/KV adjustment according to patient size. CLINICAL HISTORY: Head and neck injury with chest and abdominal pain status post fall COMPARISON: CT chest 2019 FINDINGS: An intracranial bleed is not seen. Low-density within the right internal capsule/basal ganglia has the appearance of an old lacunar infarction. 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 The ventricles are normal in caliber. An extra-axial fluid collection is not noted. . Opacification of the left mastoid. This may indicate mastoiditis and should be correlated clinically. A cervical fracture is not seen. No dislocation is noted. Spondylosis involves the cervical spine resulting central and foraminal stenosis The evaluation of mediastinum, tiffany, vessels, solid organs and bowel are limited secondary to the lack of contrast administration. A mediastinal hematoma is not noted. A pleural effusion is not seen. A lung contusion is not present. The liver,spleen, pancreas, adrenals,kidneys and bladder the do not demonstrate a traumatic injury Right renal cyst Mild acute compression fracture T12 vertebral body. Minimal retropulsion of fracture fragment into the spinal canal. The vertebral body is approximately 87% normal height Mild acute compression fracture L3 vertebral body. Vertebral body is approximately 85% normal height Trace amount of free fluid within the pelvis IMPRESSION: 1. No acute intracranial abnormality is seen. 2. A cervical fracture is not visualized. If the patient continues have symptoms to suggest intracranial/spinal cord pathology MRI be recommended 3. No traumatic abnormality involving the chest 4. Mild acute compression fractures T12 and L3 vertebral bodies EXAM DESCRIPTION: [facility] Single View05/17/2020 8:19 am CLINICAL HISTORY: Chest pain COMPARISON: July 2019 FINDINGS: The lungs appear clear of acute infiltrate. The heart is mildly enlarged. Postsurgical changes involve the chest. IMPRESSION: No acute abnormalities displayed Conclusions/Impression: A/ OSCAR in the setting of hypovolemia Hypokalemia HTN uncontrolled DM II GI bleed. P/ Continue current POC and Medications Continue Doxazosin and Metoprolol. Hold scheduled furosemide and give as needed. Follow up with GI. Plan for outpt pill cam. Transfuse PRBC as needed. Encourage nutrition as tolerated. Recommend PT as tolerated. No NSAIDs. AM labs. Daily weight.
--- NOTE | 2020-06-02 20:09 | P.PN ---
Date of Service: 06/02/20 Vital Signs Temp Pulse Resp BP Pulse Ox 97.4 F 60 18 134/60 94 06/02/20 16:00 06/02/20 16:00 06/02/20 17:06 06/02/20 16:00 06/02/20 17:06 Medications Acetaminophen (Tylenol -Extra Strength) 500 mg PO Q4HP PRN PRN Reason: Pain/fever Stop: 06/16/20 12:45 Last Admin: 05/24/20 00:42 Dose: 500 mg Documented by: Albuterol Sulfate (Proventil 0.083% Neb Soln) 2.5 mg NEB Q6HP PRN PRN Reason: SHORTNESS OF BREATH Stop: 06/26/20 11:26 Last Admin: 06/01/20 13:00 Dose: 2.5 mg Documented by: Amlodipine Besylate (Norvasc) 10 mg PO DAILY [facility] Stop: 06/28/20 09:01 Last Admin: 06/02/20 08:57 Dose: 10 mg Documented by: Artificial Tears (Liquiflim Tears 1.4% Ophth [place]) 1 drops EACH EYE TIDP PRN PRN Reason: eye redness Stop: 06/27/20 16:33 Last Admin: 05/30/20 08:50 Dose: 1 drops Documented by: Atorvastatin Calcium (Lipitor) 80 mg PO BEDTIME [facility] Stop: 06/19/20 21:01 Last Admin: 06/01/20 22:11 Dose: 80 mg Documented by: Calcitonin [place] (Miacalcin Nasal [place]) 1 sprays GEMA DAILY [facility] Stop: 06/25/20 18:01 Last Admin: 06/02/20 08:59 Dose: 1 sprays Documented by: Calcitriol (Rocaltrol) 0.5 mcg PO DAILY [facility] Stop: 06/23/20 09:01 Last Admin: 06/02/20 08:58 Dose: 0.5 mcg Documented by: Cholecalciferol (Vitamin D 5,000 Iu Cap) 5,000 unit PO DAILY [facility] Stop: 06/23/20 09:01 Last Admin: 06/02/20 08:57 Dose: 5,000 unit Documented by: Clopidogrel Bisulfate (Plavix) 75 mg PO DAILY [facility] Stop: 06/20/20 09:01 Last Admin: 06/02/20 08:57 Dose: 75 mg Documented by: Dextrose (Dextrose 50% Syringe/Vial) 12.5 gm IV PRN PRN; Protocol PRN Reason: HYPOGLYCEMIA Stop: 06/16/20 21:03 Docusate Sodium (Colace Cap) 100 mg PO DAILY PRN PRN Reason: CONSTIPATION Stop: 06/25/20 16:42 Last Admin: 06/01/20 09:05 Dose: 100 mg Documented by: Doxazosin Mesylate (Cardura) 4 mg PO BID [facility] Stop: 06/25/20 21:01 Last Admin: 06/02/20 08:57 Dose: 4 mg Documented by: Enoxaparin Sodium (Lovenox 40 Mg Inj) 40 mg SQ DAILY [facility] Stop: 06/17/20 09:01 Last Admin: 06/02/20 08:59 Dose: 40 mg Documented by: Enteral Nutritional Formula (Glucerna [place]) 237 ml PO TID [facility] Stop: 06/26/20 14:01 Last Admin: 06/02/20 14:34 Dose: 237 ml Documented by: Escitalopram Oxalate (Lexapro) 20 mg PO DAILY [facility] Stop: 06/20/20 09:01 Last Admin: 06/02/20 08:58 Dose: 20 mg Documented by: Folic Acid (Folic Acid) 1 mg PO DAILY [facility] Stop: 06/27/20 09:01 Last Admin: 06/02/20 08:57 Dose: 1 mg Documented by: Gabapentin (Neurontin) 100 mg PO TID PRN PRN Reason: Pain scale 2-4 (Mild) Stop: 06/25/20 21:01 Last Admin: 06/01/20 09:05 Dose: 100 mg Documented by: Glucagon (Glucagen) 1 mg IM 1X PRN; Protocol PRN Reason: HYPOGLYCEMIA Stop: 06/16/20 21:03 Hydralazine HCl (Apresoline) 10 mg IV Q4HP PRN PRN Reason: FOR SBP>160 OR DBP>100 MMHG Stop: 06/17/20 17:15 Last Admin: 06/02/20 05:20 Dose: 10 mg Documented by: Hydralazine HCl (Apresoline) 25 mg PO TID [facility] Stop: 07/02/20 14:01 Last Admin: 06/02/20 14:00 Dose: Not Given Documented by: Insulin Glargine (Lantus) 5 units SQ BEDTIME [facility] Stop: 06/24/20 21:01 Last Admin: 06/01/20 22:12 Dose: 5 units Documented by: Insulin Human Regular (Novolin -R) 0 unit SQ ACHS [facility]; Protocol Stop: 06/18/20 21:20 Last Admin: 06/02/20 16:30 Dose: Not Given Documented by: Ipratropium [place] (Atrovent Neb) 0.5 mg NEB [id number] PRN PRN Reason: SHORTNESS OF BREATH Stop: 06/18/20 20:55 Last Admin: 06/01/20 13:00 Dose: 0.5 mg Documented by: Lactulose (Cephulac) 10 gm PO BIDP PRN PRN Reason: CONSTIPATION Stop: 06/28/20 09:37 Last Admin: 05/31/20 02:53 Dose: 10 gm Documented by: Levofloxacin (Levaquin) 250 mg PO DAILY [facility]; Protocol Stop: 06/30/20 09:01 Last Admin: 06/02/20 08:58 Dose: 250 mg Documented by: Lidocaine (Aspercreme 4% Patch) 1 patch TOP DAILY [facility] Stop: 06/24/20 09:01 Last Admin: 06/02/20 08:57 Dose: 1 patch Documented by: Lidocaine HCl (Lidocaine 5% Ointment) 1 appl TOP DAILY [facility] Stop: 07/01/20 09:01 Last Admin: 06/02/20 08:59 Dose: 1 appl Documented by: Metoprolol Succinate (Toprol Xl) 100 mg PO BID [facility] Stop: 06/24/20 21:01 Last Admin: 06/02/20 08:58 Dose: 100 mg Documented by: Morphine Sulfate (Morphine Sulfate) 2 mg IV TID PRN PRN Reason: Pain scale 5-7 (Moderate) Stop: 06/28/20 14:01 Last Admin: 06/02/20 16:36 Dose: 2 mg Documented by: Ondansetron HCl (Zofran) 4 mg IV Q4H PRN PRN Reason: NAUSEA / VOMITING Stop: 06/27/20 12:45 Last Admin: 06/02/20 16:36 Dose: 4 mg Documented by: Pantoprazole Sodium (Protonix Tab) 40 mg PO ACB [facility]; Protocol Stop: 06/23/20 16:01 Last Admin: 06/02/20 08:58 Dose: 40 mg Documented by: Sodium Chloride (Normal Saline Flush) 10 ml IV BID [facility] Stop: 06/16/20 21:01 Last Admin: 06/02/20 09:00 Dose: 10 ml Documented by: Tamsulosin HCl (Flomax) 0.4 mg PO BEDTIME [facility] Stop: 07/01/20 21:01 Last Admin: 06/01/20 22:09 Dose: 0.4 mg Documented by: Trazodone HCl (Desyrel) 100 mg PO BEDTIME PRN PRN PRN Reason: INSOMNIA Stop: 06/24/20 20:39 Last Admin: 06/01/20 22:12 Dose: 100 mg Documented by: Microbiology Results 05/17/20 11:09 Nasopharnyx Influenza Type A Antigen Screen - Final 05/17/20 11:09 Nasopharnyx Influenza Type B Antigen Screen - Final Assessment/ Plan: Nephrology CPS stable without CP or SOB. No acute events overnight. Feeling better today. Vitals, medications, blood work and imaging reviewed in the chart. NAD. MMM. Neck supple. CTA. RRR. Soft Abd. No C/C/E. No rash. AAO. Normal Speech. 05/17/20 07:47: PT 11.8, INR 1.00, APTT 26.8 05/17/20 07:47: WBC 14.5 H, Hgb 8.2 L, Hct 24.9 L, Plt Count 198 05/17/20 07:47: Sodium 142, Potassium 3.7, BUN 46 H, Creatinine 1.83 H, Glucose 150 H, Total Bilirubin 0.9, AST 33, ALT 44, Alkaline Phosphatase 67, Lipase 86 Imagings Data: EXAM DESCRIPTION: CT - Head C Spine Cap Wo Con - 05/17/2020 8:12 am TECHNIQUE: Computed axial tomography of the head and cervical spine was obtai chris. Coronal and sagittal reconstruction was performed Computed axial tomography of the chest, abdomen and pelvis was obtained. Contrast was not requested. All CT scans are performed using dose optimization technique as appropriate and may include automated exposure control or mA/KV adjustment according to patient size. CLINICAL HISTORY: Head and neck injury with chest and abdominal pain status post fall COMPARISON: CT chest 2019 FINDINGS: An intracranial bleed is not seen. Low-density within the right internal capsule/basal ganglia has the appearance of an old lacunar infarction. 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 The ventricles are normal in caliber. An extra-axial fluid collection is not noted. . Opacification of the left mastoid. This may indicate mastoiditis and should be correlated clinically. A cervical fracture is not seen. No dislocation is noted. Spondylosis involves the cervical spine resulting central and foraminal stenosis The evaluation of mediastinum, tiffany, vessels, solid organs and bowel are limited secondary to the lack of contrast administration. A mediastinal hematoma is not noted. A pleural effusion is not seen. A lung contusion is not present. The liver,spleen, pancreas, adrenals,kidneys and bladder the do not demonstrate a traumatic injury Right renal cyst Mild acute compression fracture T12 vertebral body. Minimal retropulsion of fracture fragment into the spinal canal. The vertebral body is approximately 87% normal height Mild acute compression fracture L3 vertebral body. Vertebral body is approximately 85% normal height Trace amount of free fluid within the pelvis IMPRESSION: 1. No acute intracranial abnormality is seen. 2. A cervical fracture is not visualized. If the patient continues have symptoms to suggest intracranial/spinal cord pathology MRI be recommended 3. No traumatic abnormality involving the chest 4. Mild acute compression fractures T12 and L3 vertebral bodies EXAM DESCRIPTION: [facility] Single View05/17/2020 8:19 am CLINICAL HISTORY: Chest pain COMPARISON: July 2019 FINDINGS: The lungs appear clear of acute infiltrate. The heart is mildly enlarged. Postsurgical changes involve the chest. IMPRESSION: No acute abnormalities displayed Conclusions/Impression: A/ OSCAR in the setting of hypovolemia Hypokalemia HTN uncontrolled DM II GI bleed. P/ Continue current POC and Medications Continue Doxazosin and Metoprolol. Hold scheduled furosemide and give as needed. Follow up with GI. Plan for outpt pill cam. Transfuse PRBC as needed. Encourage nutrition as tolerated. Recommend PT as tolerated. No NSAIDs. AM labs. Daily weight.
[2020-06-02] MEDS: TAMSULOSIN 0.4 MG SR CAP PO SCH (21:17)
[2020-06-02] MEDS: ATORVASTATIN 80 MG TAB PO SCH (21:17)
[2020-06-02] MEDS: TRAZODONE 50 MG TABLET PO PRN (21:18)
[2020-06-02] MEDS: INSULIN GLARGINE 100 UNITS/ML SQ SCH (21:18)
[2020-06-03] MEDS: INSULIN -REGULAR HUMAN 50 UNIT/0.5 ML ML SQ SCH ×3 (07:30→16:30)
[2020-06-03] MEDS: LIDOCAINE 4% PATCH TOP SCH (08:43)
[2020-06-03] MEDS: CALCITROL 0.25 MCG CAP PO SCH (08:44)
[2020-06-03] MEDS: ENOXAPARIN 40 MG/0.4 ML SQ SCH (08:44)
[2020-06-03] MEDS: VITAMIN D 5,000 UNIT CAP PO SCH (08:44)
[2020-06-03] MEDS: CLOPIDOGREL 75 MG TABLET PO SCH (08:44)
[2020-06-03] MEDS: DOXAZOSIN 2 MG TAB PO SCH (08:44)
[2020-06-03] MEDS: AMLODIPINE 10 MG TAB PO SCH (08:45)
[2020-06-03] MEDS: levoFLOXacin 250 MG TAB PO SCH (08:45)
[2020-06-03] MEDS: PANTOPRAZOLE 40MG TABLET PO SCH (08:45)
[2020-06-03] MEDS: HYDRALAZINE HCL 25 MG TABLET PO SCH ×2 (08:45→13:49)
[2020-06-03] MEDS: FOLIC ACID 1 MG TABLET PO SCH (08:45)
[2020-06-03] MEDS: GLUCERNA SHAKE 237 ML CAN PO SCH ×2 (08:46→13:49)
[2020-06-03] MEDS: ESCITALOPRAM 20 MG TAB PO SCH (08:46)
[2020-06-03] MEDS: METOPROLOL XL 100 MG TAB PO SCH (08:47)
[2020-06-03] MEDS: CALCITONIN NASAL SPRAY 200 IU/DOSE NAS SCH (08:47)
[2020-06-03] MEDS: LIDOCAINE 5% OINT 30 GM TUBE TOP SCH (08:47)
[2020-06-03] MEDS: MORPHINE 2 MG/ML SYR IV PRN (10:06)
[2020-06-03] MEDS: ONDANSETRON 4 MG/2 ML VIAL IV PRN (10:06)
[2020-06-03 10:16] VITALS: O2SAT 94
--- NOTE | 2020-06-03 10:18 | PN ---
Date of Progress Note: 06/03/2020 Subjective: The patient is awake, alert, tolerating diet, having bowel movement. No abdominal pain. Objective: Vital Signs: Stable. Afebrile. Abdomen: Benign. Assessment: Ileus, resolved. Recommendations: High-fiber diet and bowel regimen as ordered. Reconsult Surgery p.r.n. /MODL Voice ID: [id number] Report ID: [id number]
[2020-06-03 16:34] VITALS: BP 138/65; TEMP 97.6
--- NOTE | 2020-06-03 22:05 | P.PN ---
Date of Service: 06/03/20 Vital Signs Temp Pulse Resp BP Pulse Ox 97.6 F 57 16 138/65 95 06/03/20 16:00 06/03/20 16:00 06/03/20 16:00 06/03/20 16:00 06/03/20 16:00 Microbiology Results 05/17/20 11:09 Nasopharnyx Influenza Type A Antigen Screen - Final 05/17/20 11:09 Nasopharnyx Influenza Type B Antigen Screen - Final Assessment/ Plan: Nephrology CPS stable without CP or SOB. No acute events overnight. Feeling better today. Vitals, medications, blood work and imaging reviewed in the chart. NAD. MMM. Neck supple. CTA. RRR. Soft Abd. No C/C/E. No rash. AAO. Normal Speech. 05/17/20 07:47: PT 11.8, INR 1.00, APTT 26.8 05/17/20 07:47: WBC 14.5 H, Hgb 8.2 L, Hct 24.9 L, Plt Count 198 05/17/20 07:47: Sodium 142, Potassium 3.7, BUN 46 H, Creatinine 1.83 H, Glucose 150 H, Total Bilirubin 0.9, AST 33, ALT 44, Alkaline Phosphatase 67, Lipase 86 Imagings Data: EXAM DESCRIPTION: CT - Head C Spine Cap Wo Con - 05/17/2020 8:12 am TECHNIQUE: Computed axial tomography of the head and cervical spine was obtained. Coronal and sagittal reconstruction was performed Computed axial tomography of the chest, abdomen and pelvis was obtained. Contrast was not requested. All CT scans are performed using dose optimization technique as appropriate and may include automated exposure control or mA/KV adjustment according to patient size. CLINICAL HISTORY: Head and neck injury with chest and abdominal pain status post fall COMPARISON: CT chest 2019 FINDINGS: An intracranial bleed is not seen. Low-density within the right internal capsule/basal ganglia has the appearance of an old lacunar infarction. 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 The ventricles are normal in caliber. An extra-axial fluid collection is not no tennille. . Opacification of the left mastoid. This may indicate mastoiditis and should be correlated clinically. A cervical fracture is not seen. No dislocation is noted. Spondylosis involves the cervical spine resulting central and foraminal stenosis The evaluation of mediastinum, tiffany, vessels, solid organs and bowel are limited secondary to the lack of contrast administration. A mediastinal hematoma is not noted. A pleural effusion is not seen. A lung contusion is not present. The liver,spleen, pancreas, adrenals,kidneys and bladder the do not demonstrate a traumatic injury Right renal cyst Mild acute compression fracture T12 vertebral body. Minimal retropulsion of fracture fragment into the spinal canal. The vertebral body is approximately 87% normal height Mild acute compression fracture L3 vertebral body. Vertebral body is approximately 85% normal height Trace amount of free fluid within the pelvis IMPRESSION: 1. No acute intracranial abnormality is seen. 2. A cervical fracture is not visualized. If the patient continues have symptoms to suggest intracranial/spinal cord pathology MRI be recommended 3. No traumatic abnormality involving the chest 4. Mild acute compression fractures T12 and L3 vertebral bodies [facility] 8[facility]19 am CLINICAL HISTORY: Chest pain COMPARISON: July 2019 FINDINGS: The lungs appear clear of acute infiltrate. The heart is mildly enlarged. Postsurgical changes involve the chest. IMPRESSION: No acute abnormalities displayed Conclusions/Impression: A/ OSCAR in the setting of hypovolemia Hypokalemia HTN uncontrolled DM II GI bleed. P/ Continue current POC and Medications Continue Doxazosin and Metoprolol. Hold scheduled furosemide and give as needed. Follow up with GI. Plan for outpt pill cam. Transfuse PRBC as needed. Encourage nutrition as tolerated. Recommend PT as tolerated. No NSAIDs. AM labs prn. Daily weight.
--- NOTE | 2020-06-07 04:52 | P.PN ---
Subjective Date of Service: 06/02/20 Patient is being evaluated by the insurance company to see if he will participate with inpatient rehab. As long as patient continues to work hard with therapy then he should be qualified for inpatient rehab. However, if he does not work hard and he refuses then they will deny him inpatient rehab because he has to participate to get benefits from inpatient rehab. Had a long talk with his ex- who is very unhappy with some of the things were doing. I explained to her in detail regarding our plan of care for patient. Advised her to speak to the ovens supervisor if she continues to have complaints. Review of Systems 10-point ROS is otherwise unremarkable Physical Examination - Vital Signs Temperature: 97.6 F Blood Pressure: 138/65 Pulse: 57 Respirations: 16 Pulse Ox (%): 95 - Physical Exam General: Alert, In no apparent distress, Oriented x3 Respiratory: Clear to auscultation bilaterally, Normal air movement Cardiovascular: Regular rate/rhythm, Normal S1 S2, No murmurs Gastrointestinal: Normal bowel sounds, Soft and benign, Non-distended, No tenderness Musculoskeletal: No clubbing, No swelling, No tenderness Integumentary: No rashes Neurological: Normal speech, Normal tone, Normal affect Lymphatics: No axilla or inguinal lymphadenopathy - Studies Medications List Reviewed: Yes Assessment & Plan - Problems (Diagnosis) (1) Syncope and collapse Status: Acute (2) Bradycardia Status: Acute (3) GI bleed Status: Acute (4) Cardiomyopathy Status: Acute (5) Weight loss Status: Acute (6) Depression Status: Acute (7) Diabetes Status: Acute (8) Weakness generalized Status: Acute (9) Hypertension Onset Date: 11/05/16 Status: Chronic Qualifiers: Hypertension type: essential hypertension Qualified Code(s): I10 - Essential (primary) hypertension (10) Anorexia Status: Acute (11) Cachexia Status: Acute (12) BPH (benign prostatic hyperplasia) Status: Acute (13) Urinary retention Status: Acute - Plan Plan: Continue with plan of care as mentioned below: 1. Hep-Lock IV;We have advanced diet as tolerated 2. Cardiac status is stable. Congestive heart failure is compensated; patient with diastolic heart failure 3. Patient will qualify for inpatient rehab if he can continue to participate with physical therapy 4. Pain medication after he ambulates at this time. Continue lidocaine patch. Muscle extra as needed 5. Appreciate speech therapy recommendations. He needs to increase his caloric intake. 6. Renal function continues to improve. Appreciate Nephrology assistance 7. Continue monitoring electrolytes closely 8. GI and DVT prophylaxis Discharge Plan: Other (Inpatient rehab) Plan to discharge in: 48 Hours - Advance Directives Does patient have a Living Will: No Does patient have a Durable POA for Healthcare: No - Code Status/Comfort Care Code Status: Full Code Critical Care: No Time Spent Managing PTS Care (In Minutes): 35
--- NOTE | 2020-06-07 04:56 | P.DS ---
Discharge Date: 06/03/20 Primary Care Provider: Dr. Santo Disposition: TRANSFER TO INPATIENT REHAB Discharge Condition: GOOD Reason for Admission: Fall injury, coffee-ground emesis, anemia Consultations: Nephrology, gastroenterology, general surgery, cardiology - Problems (1) Syncope and collapse Status: Acute (2) Bradycardia Status: Acute (3) GI bleed Status: Acute (4) Cardiomyopathy Status: Acute (5) Weight loss Status: Acute (6) Depression Status: Acute (7) Diabetes Status: Acute (8) Weakness generalized Status: Acute (9) Hypertension Onset Date: 11/05/16 Status: Chronic Qualifiers: Hypertension type: essential hypertension Qualified Code(s): I10 - Essential (primary) hypertension (10) Anorexia Status: Acute (11) Cachexia Status: Acute (12) BPH (benign prostatic hyperplasia) Status: Acute (13) Urinary retention Status: Acute Brief History of Present Illness: Patient is a 65-year-old woman who came to the hospital after falling. 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 His cardiac surgery with a four-vessel bypass. He had been doing poorly over the last few weeks and he was really weak and has gone to the emergency room at [facility]. While he was there it was found that he was anemic. The patient's family states that they did not give him a blood transfusion because they were worried that his heart would be able to tolerate it. I am not really sure we the rationale behind this as normally would like to keep patient with cardiac disease with a hemoglobin greater than 10. Patient also has some coffee-ground emesis today. Will monitor his hemoglobin closely. Also monitor his hemodynamics and thumb on a Protonix drip. Patient is also malnourished along the tele monitor his calorie requirements. Patient looks to be fairly debilitated hopefully we can get him feeling better prior to discharge. Hospital Course: Patient has done well during hospital stay. Towards the last week he discard participating more with physical therapy. He was able to walk about 40 feet. He needed minimal assistance. We increased his diet at the hospital. Patient slowly improved during his hospitalization. He is clinically doing okay but should have a calorie count and if he qualifies may need to come back down for PEG tube placement. His intake is very poor. He tends to have nausea whenever he eats. He is doing well and he should be fine for discharge home with outpatient follow up. He will be transferred to inpatient rehab until his strength improves over the next 2-3 weeks. Vital Signs/Physical Exam: Temp Pulse Resp BP Pulse Ox 97.6 F 57 16 138/65 95 06/07/20 04:52 06/07/20 04:52 06/07/20 04:52 06/07/20 04:52 06/07/20 04:52 General: Alert, In no apparent distress, Oriented x3 Laboratory Data at Discharge: WBC 6.4 K/uL (4.3-10.9) D 06/01/20 05:50 Hgb 9.8 g/dL (13.6-17.9) L 06/01/20 05:50 Hct 28.5 % (39.6-49.0) L 06/01/20 05:50 Plt Count 200 K/uL (152-406) 06/01/20 05:50 PT 11.8 SECONDS (9.5-12.5) 05/17/20 07:47 INR 1.00 05/17/20 07:47 APTT 26.8 SECONDS (24.3-36.9) 05/17/20 07:47 Sodium 138 mmol/L (136-145) 06/02/20 14:16 Potassium 4.2 mmol/L (3.5-5.1) 06/02/20 14:16 BUN 31 mg/dL (7-18) H 06/02/20 14:16 Creatinine 1.85 mg/dL (0.55-1.3) H 06/02/20 14:16 Glucose 127 mg/dL (74-106) H 06/02/20 14:16 Phosphorus 3.0 mg/dL (2.5-4.9) 06/01/20 05:50 Magnesium 2.6 mg/dL (1.8-2.4) H D 06/01/20 05:50 Total Bilirubin 0.3 mg/dL (0.2-1.0) 06/01/20 05:50 AST 16 U/L (15-37) 06/01/20 05:50 ALT 15 U/L (12-78) 06/01/20 05:50 Alkaline Phosphatase 91 U/L (45-117) 06/01/20 05:50 Troponin I 0.13 ng/mL (0.0-0.045) H 05/18/20 05:14 Lipase 263 U/L (73-393) 05/22/20 05:25 Home Medications: Aspirin [Adult Aspirin Regimen] 81 mg PO BEDTIME 06/04/20 Atorvastatin Calcium [Lipitor] 80 mg PO BEDTIME 06/04/20 Clopidogrel Bisulfate [Plavix] 75 mg PO DAILY 06/04/20 Doxazosin [Cardura] 2 mg PO BEDTIME 06/04/20 Escitalopram [Lexapro] 20 mg PO DAILY 06/04/20 Ferrous Sulfate [Feosol] 325 mg PO BID 06/04/20 Furosemide [Lasix] 40 mg PO BIDL 06/04/20 Insulin -Regular Human [Novolin -R*] See Protocol SQ ACHS 06/04/20 Metformin ER [Glucophage ER*] 500 mg PO BID 06/04/20 Metoprolol Succinate 50 mg PO DAILY 06/04/20 Patient Discharge Instructions: OK TO DC IV AND DC to inpatient rehab. FOLLOW- UP WITH PRIMARY CARE PROVIDER IN 1-2 WEEKS. Follow-up with the rehab physician in 48 hr. FOLLOW-UP WITH Cardiology and Nephrology in 1-2 weeks. Follow-up with Gastroenterology in 2-4 weeks. RETURN TO THE ER IF symptoms worsen. CALL or TEXT DR. PABLO AT [phone] IF ANY QUESTIONS REGARDING HOSPITAL STAY. PLEASE CALL THE FLOOR AT [phone] IF ANY MEDICATION OR NURSING QUESTIONS. Diet: AHA Activity: Fall precautions Followup: OOT,OOT [Primary Care Provider] - Po Modi MD [ASSOCIATE-ACTIVE - CAN ADMIT] - Time spent managing pt's care (in minutes): 55
== END 2020-06-03 17:54 | DRG 377 ==
LOC: ER 07:05 → ERHOLD 12:44 → 2ND 15:45
PROVIDERS: ADMIT Hospitalist; ATTEND Hospitalist
PROC: 30233N1 Transfusion of Nonautologous Red Blood Cells into Peripheral Vein, Percutaneous Approach (ICD-10-PCS; 2020-05-17)
PROC: 0DB78ZX Excision of Stomach, Pylorus, Via Natural or Artificial Opening Endoscopic, Diagnostic (ICD-10-PCS; principal; 2020-05-18 12:30)
DX: K29.71 Gastritis, unspecified, with bleeding (principal); J18.9 Pneumonia, unspecified organism; N17.0 Acute kidney failure with tubular necrosis; I13.0 Hypertensive heart and chronic kidney disease with heart failure and stage 1 through stage 4 chronic kidney disease, or unspecified chronic kidney disease; S22.080A Wedge compression fracture of T11-T12 vertebra, initial encounter for closed fracture; S32.039A Unspecified fracture of third lumbar vertebra, initial encounter for closed fracture; I50.22 Chronic systolic (congestive) heart failure; J44.0 Chronic obstructive pulmonary disease with (acute) lower respiratory infection; S22.030A Wedge compression fracture of third thoracic vertebra, initial encounter for closed fracture; E44.0 Moderate protein-calorie malnutrition; K56.7 Ileus, unspecified; I42.9 Cardiomyopathy, unspecified; K29.81 Duodenitis with bleeding; E86.1 Hypovolemia; K44.9 Diaphragmatic hernia without obstruction or gangrene; K21.9 Gastro-esophageal reflux disease without esophagitis; N18.30 Chronic kidney disease, stage 3 unspecified; E11.22 Type 2 diabetes mellitus with diabetic chronic kidney disease; D72.829 Elevated white blood cell count, unspecified; F41.8 Other specified anxiety disorders; F17.200 Nicotine dependence, unspecified, uncomplicated; D50.9 Iron deficiency anemia, unspecified; N40.1 Benign prostatic hyperplasia with lower urinary tract symptoms; R33.8 Other retention of urine; E78.5 Hyperlipidemia, unspecified; E87.6 Hypokalemia; K59.03 Drug induced constipation; T40.2X5A Adverse effect of other opioids, initial encounter; I25.10 Atherosclerotic heart disease of native coronary artery without angina pectoris; I25.2 Old myocardial infarction; R00.1 Bradycardia, unspecified; R63.0 Anorexia; R00.0 Tachycardia, unspecified; W18.30XA Fall on same level, unspecified, initial encounter; Z88.8 Allergy status to other drugs, medicaments and biological substances; Z79.82 Long term (current) use of aspirin; Z79.4 Long term (current) use of insulin; Z79.899 Other long term (current) drug therapy; Z95.5 Presence of coronary angioplasty implant and graft; Z95.1 Presence of aortocoronary bypass graft; Z79.02 Long term (current) use of antithrombotics/antiplatelets; Z68.21 Body mass index [BMI] 21.0-21.9, adult; Z20.828 Contact with and (suspected) exposure to other viral communicable diseases
CPT/HCPCS: 36415; 70450; 71045; 71250; 72125; 74018; 74176; 74245; 80048; 80053; 80076; 81001; 82140; 82533; 82565; 82607; 82728; 82746; 82947; 83036; 83540; 83605; 83690; 83735; 83880; 84100; 84132; 84145; 84439; 84443; 84484; 85014; 85018; 85025; 85610; 85730; 86850; 86900; 86901; 87040; 87086; 87088; 87804; 88305; 88312; 92610; 93005; 93306; 94010; 94640; 94760; 96361; 96365; 96366; 96375; 97110; 97112; 97116; 97161; 97530; 97760; 99285; C9113; G0390; J0360; J1100; J1170; J1650; J1720; J1815; J1940; J2270; J2405; J2550; J2704; J2765; J2916; J3480; J7030; J7040; J7050; J7120; P9016; P9047; U0003

== ENCOUNTER 2020-06-01 09:22 | Inpatient (IN) | payer OTHER ==
--- NOTE | 2020-06-03 14:07 | R.PREADM ---
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 GILL RE[facility]AB F[facility]ILITY [facility] CLINICAL LIAISON Celine Raya PHYSICIAN REVIEWER Dr. Vel Murphy M.D. MR# [id number] NAME NAT RODRIGUEZ ADDRESS [address] [place] [address] PHONE [facility] [address] DATE OF 1955 AGE 65 SSN# [id number] GENDER male MARITAL STATUS RACE unknown race ADMIT FROM 02 - [facility] PRE-HOSPITAL LIVING SETTING 01 - Home (private home/apt. board/care, assisted living, skilled nursing, transitional living) HOME TYPE AND DETAILS Type of home: single family house # of levels in the residence: 1 # of steps within the residence: 0 # of steps to enter the residence: 0 PRE-HOSPITAL LIVING WITH Family/Relatives FAMILY SUPPORT Yes PRIMARY FAMILY CONTACT NAME RENNY RODRIGUEZ PRIMARY FAMILY CONTACT PHONE PRIMARY FAMILY CONTACT RELATIONSHIP Son PHONE PRIMARY FAMILY CONTACT ON ADM.? no IS PRIMARY FAMILY CONTACT AUTH. REP.? no 1ST EMERGENCY CONTACT RENNY RODRIGUEZ 1ST CONTACT PHONE 1ST CONTACT RELATIONSHIP Son PHONE 1ST CONTACT ON ADM. no IS 1ST CONTACT AUTH. REP.? no PHONE 2ND CONTACT ON ADM.? 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 No ANOTHER GREEN PARTY RESPONSIBLE? No PRIMARY REHAB/ACUTE DIAGNOSIS: HEART FAILURE ONSET DATE 05/17/2020 REHAB IMPAIRMENT CATEGORY (TORI): 14 Cardiac does NOT meet 60% rule PRIMARY DIAGNOSIS-RELATED SURGERIES: No surgeries related to the primary diagnosis were performed. SUMMARY OF ACUTE HOSPITALIZATION: Pt. is a 65 yo Right-handed male of unknown race. On 05/17/2020 he was admitted to [facility] with diagnosis HEART FAILURE. His impairment category is Cardiac 09 - Cardiac Disorders (09). Pre-morbidly, Pt. was independent/mod-I in Locomotion, Social Cognition, Self-Care, and Communication ; and he had good Balance, Transfers Control, and Sphincter Control. Currently, he has deficits of Safety Awareness, Social Cognition, Transfers Control, Sphincter Contro l, Self-Care, Communication, and Endurance. Pt. is now referred to [facility] for acute in-patient rehabilitation in order to maximize patient's functional independence in activities of daily living, strength, ROM, and mobi lity. Patient has realistic goal of being discharged at assistance level Dago-to-sup to reside at Home with Family/Relatives. PAST MEDICAL HISTORY HEART DISEASE HYPERTENSION LUNG DISEASE GI DISEASE DIABETES CANCER PARKINSONS DISEASE COPD CAD HYPERLIPIDEMIA PAST SURGICAL HISTORY: KNEE SURGERY HIATAL HERNIA REPAIR LEFT BIPOLAR HEMIARTHROPLASTY HIP SURGERY CABG MEDICATION ALLERGIES: No Known Drug Allergies (NKDA) ENVIRONMENTAL ALLERGIES: - Substance Allergies None Known - Other Allergies None Known CODE STATUS: Full code WEIGHT/HEIGHT/BMI: WEIGHT 160 lbs HEIGHT ' 6.0" BMI 21.7 DIET: - Diet Type Regular - Diet - Solid Texture Regular - Diet - Liquid Texture Regular - Tube Feed N/A REVIEW OF SYSTEMS: - Gen Alert and awake Lying in bed No apparent distress Oriented to: person, time, and place - Vital Signs Temperature: 97.9 F SBP/DBP: 158/63 Pulse: 67 Resp: 16 Vital signs stable, afebrile - CVS RRR VITAL SIGNS Temperature: 97.9 F SBP/DBP: 158/63 Pulse: 67 Resp: 16 Vital signs stable, afebrile MEDICATIONS/TREATMENT: Other- See attached MAR (Medication Administration Record). CURRENT SPHINCTER CONTROL: Pre-hospital bladder status: unspecified # of bladder accidents in the last 7 days prior to screenin Pre-hospital bowel status: unspecified # of bowel accidents in the last 7 days prior to screenin Last Bowel Movement Date: 05/31/2020 CURRENT LOCOMOTION STATUS: distance walked 60 feet with rollator DETAILED CURRENT FUNCTIONAL STATUS: - Bladder accident frequency: Ind - No accidents in the past 7 days - Bowel accident frequency: Ind - No accidents in the past 7 days - Walking score based on distance walked: 0(N/A) - Wheelchair score based on distance traveled: 0(N/A) QI SCORES: - Self-Care A. Eating 03-Partial/moderate assistance B. Oral hygiene 03-Partial/moderate assistance C. Toileting hygiene 02-Substantial/maximal assistance E. Shower/bathe self 02-Substantial/maximal assistance F. Upper body dressing 02-Substantial/maximal assistance G. Lower body dressing 02-Substantial/maximal assistance H. Putting on/taking off footwear 88-Not attempted due to medical condition or safety concerns - Mobility A. Roll left and right 03-Partial/moderate assistance B. Sit to lying 03-Partial/moderate assistance C. Lying to sitting on side of bed 02-Substantial/maximal assistance D. Sit to stand 02-Substantial/maximal assistance E. Chair/rti-vt-etapo transfer 02-Substantial/maximal assistance F. Toilet transfer 02-Substantial/maximal assistance G. Car transfer 88-Not attempted due to medical condition or safety concerns I. Walk 10 feet 02-Substantial/maximal assistance J. Walk 50 feet with two turns 88-Not attempted due to medical condition or safety concerns K. Walk 150 feet 88-Not attempted due to medical condition or safety concerns L. Walking 10 feet on uneven surfaces 88-Not attempted due to medical condition or safety concerns M. 1 step (curb) 88-Not attempted due to medical condition or safety concerns N. 4 steps 88-Not attempted due to medical condition or safety concerns O. 12 steps 88-Not attempted due to medical condition or safety concerns P. Picking up object 88-Not attempted due to medical condition or safety concerns R. Wheel 50 feet with two turns 88-Not attempted due to medical condition or safety concerns S. Wheel 150 feet 88-Not attempted due to medical condition or safety concerns - Bladder and Bowel Bladder continence Bowel continence - Endurance Fair - Balance Poor - Safety Awareness Poor CURRENT FUNC. DEFICITS: Self-Care, Mobility, Endurance, Balance, and Safety Awareness HISTORY OF FALLS. HAS THE PATIENT HAD TWO OR MORE FALLS IN THE PAST YEAR OR ANY FALL WITH INJURY IN T HE PAST YEAR?: No PRIOR SURGERY. DID THE PATIENT HAVE MAJOR SURGERY DURING THE 100 DAYS PRIOR TO ADMISSION?: No THERAPY NOTES FROM ACUTE CARE: Attached. SPECIAL NEEDS: - Safety Concerns Skin breakdown precautions needed due to skin breakdown risk PATIENT NEEDS ACTIVE AND ONGOING THERAPEUTIC INTERVENTION OF MULTIPLE THERAPY DISCIPLINES, INCLUDING: - Dietary and Nutrition Adequate Nutrition. Nutritional Education. Nutritional Supplements. PATIENT NEEDS CLOSE MEDICAL SUPERVISION BY A REHABILITATION PHYSICIAN FOR: Coordination of Treatment Team PATIENT REQUIRES 24X7 REHAB NURSING FOR MEDICAL AND FUNCTIONAL MGT. OF THE FOLLOWING DEFICITS: Disease Management Medication Management Patient/Family Education Providing Safe Environment PATIENT REQUIRES INTENSIVE, COORDINATED INTERDISCIPLINARY APPROACH TO REHAB: Arranging Home Equipment/Services Discharge Planning Family Intervention/Training Assistant Manager Retail/Case Management PATIENT REHAB POTENTIAL: Kym RODRIGUEZ is able and expected to receive 3 hours of individualized therapy daily on at least 5 of ev rosales 7 days Kym RODRIGUEZ'margie prognosis for significant practical improvement within a reasonable period of time appear s Good Expected level of measurable improvement will be of a practical value to Kym RODRIGUEZ's functional capac ity or adaptations to impairments Has a viable Discharge Plan Medically appropriate; condition is sufficiently stable to participate in intensive rehab program DISCHARGE PLAN: - Estimated Length of Stay (days) 10. - Consensus on plan Discharge plan has been discussed with primary caregiver. Patient/Family is in agreement with the lakisha n. Primary caregiver is in agreement with the plan. - Patient/Family Goals Return home independently. - Planned Living Setting Upon Discharge Home, to live with Family/Relatives. Transitional Living. RECOMMENDED CARE LEVEL: IRF RECOMMENDATION DETAILS: Recommended Admission to Comprehensive Rehabilitation Program to Increase Functional [place] SCREENER'S COMPLETENESS CONFIRMATION: - Screening Confirmation The patient data collection on this preadmission screening form is finished PHYSICIANS REVIEW AND ADMISSION DETERMINATION Admit - Based on my review of the Pre-Admission Screening results, in my medical judgment and experie nce, I concur with the findings and recommend admission to [facility], as this patient requires an IRF level of care. SIGNATURE PANEL: Supervisor [place] - [electronically] signed by Celine Raya on 06/02/2020 at 15:20 (CONSUMER AFFAIRS MANAGER) Supervisor [place] - [electronically] signed by August Dowd PT on 06/03/2020 at 13:41 (CONSUMER AFFAIRS MANAGER) Physician Reviewer - [electronically] signed by Dr. Vel Murphy M.D. on 06/03/2020 at 14:06 (CONSUMER AFFAIRS MANAGER )
--- OUTSIDE RECORDS SUMMARY | 2020-06-03 17:42 | XMS REPORT | Summary of Care ---
:1955 Author Organization [facility] - Health Address [address] [place] [address] Care Team Providers Name Role Phone Ra Carpio Primary Care Provider Raegan Yadav DO Emission Technician Encounter Details Date Type Department Care Team Description 05/03/2020 Orders Only [facility] Doctor Unassigned, No [address] [place] [address] [address] [place] [address] Allergies Active Allergy Reactions Severity Noted Date Comments Hxpnxkezvgjxr-Ls-Ihxyahahxuf Hallucinations 08/18/2019 Spironolactone Other - See comments [...] neuropathy, Ischemic cardiomyopathy, Coronary artery disease involving [place] coronary artery of [place] heart without angina pectoris, Systolic congestive heart [...] Added automatically from request for nick guallpa [id number] Dysphagia, unspecified type 03/25/2018 Overview: Added automatically from request for nick guallpa [id number] Atrial flutter 10/15/2017 Chronic diastolic congestive heart failure 10/14/2017 HTN (hypertension) 10/14/2017 HLD (hyperlipidemia) 10/14/2017 Type 2 diabetes mellitus without complication 10/15/19 18 Pneumonia 10/13/2017 NSTEMI (non-ST elevated myocardial infarction) 018 History of IL (myocardial infarction) 09/12/2017 Foreign body in foot, [...] I will submit an application to the [facility] Indigent Program. I will complete CASEBOOK application. documented as of this encounter Implants Implanted Type Area Fire Systems Inspector Device Identifier Shelf Exp iration Model / Date Serial / L ot Hip HIP Left Knee Screws documented as of this encounter Procedures Procedure Name Priority Date/Time Associated Diagnosis Comme nts CONSENT/REFUSAL FOR Routine 05/03/2020 1:25 PM CDT DIAGNOSIS AND TREATMENT documented in this encounter Results Not on filedocumented in this encounter
--- OUTSIDE RECORDS SUMMARY | 2020-06-03 17:42 | XMS REPORT | Continuity of Care Document ---
:1955 Author Organization [facility] t Address [address] [place] [address] Care Team Providers Name Role Phone Arash [...] Mother Family history of [facility] [place] diabetes mellitus Physici ans Mother Family history of [facility] [place] hypertension Physicians Mother Family history of [facility] [place] malignant neoplasm Physic ians Mother Family history of [facility] [place] coronary artery Physician s disease Mother Family history of [facility] [place] Jose's disease Physici ans Father Family history of [facility] [place] diabetes mellitus Physici ans Father Family history of [facility] [place] hypertension Physicians Father Family history of [facility] [place] coronary artery Physician s disease Sister Family history of [facility] [place] malignant neoplasm Physic ians Brother Family history of [facility] [place] pancreatic cancer Physici ans Social History Smoking Status Start Date Stop Date Source Ex-smoker (finding) [place] [facility] Physicians Medications Ordered Filled Start Stop [...] TABLET ity of Tablet Tablet 00:00: TWICE [place] 00 DAILY. Physici ans Furosemide Furosemide 2019-0 Yes M.A. Q0.5D TAKE 1 Univers 40 MG Oral 40 MG Oral 3-05 TABLET i ty of Tablet Tablet 00:00: TWICE [place] 00 DAILY. Physici ans Nicotine 14 Nicotine 14 2019-0 Yes M.A. QD APPLY 1 Univers MG/24HR MG/24HR 3-05 PATCH ity of Transdermal Transdermal 00:00: DAILY [place] Patch 24 Patch 24 00 DIRECTED. Ph [...] Fe) MG (65 Fe) MG 00:00: TIMES [place] Oral Tablet Oral Tablet 00 DAILY WITH [...] ity of Sublingual Sublingual 00:00: UNDER THE [place] Tablet Tablet 00 TONGUE Physici Sublingual Sublingual EVERY 5 ans MINUTES FOR UP TO 3 DOSES NEEDED FOR CHEST PAIN.CALL 911 IF PAIN PERSISTS. HumuLIN R HumuLIN R Yes M.A. inject 12 Univers 100 UNIT/ML 100 UNIT/ML 3-05 units ity of Injection Injection 00:00: under the [place] Solution Solution 00 skin 2 Physi ci times ans daily before breakfast and dinner. Vital Signs Vital Name Observation Time Observation Value Comments Source Systolic blood 2019-09-29 155 mm[Hg] Location: [facility] 16:23:00 Position: [place] Physician s Sitting Diastolic blood 2019-09-29 68 mm[Hg] Location: [facility] University of pressure 16:23:00 Position: [place] Physician s Sitting Body height 2019-09-29 72 [in_us] [facility] :23:00 [place] Physician s Weight 2019-09-29 163 [lb_av] [facility] :23:00 [place] Physician s Body mass index 2019-09-29 22.11 kg/m2 [place] [facility] f (BMI) [Ratio] 16:23:00 [place] Physicia ns Body temperature 2019-09-29 97.9 [degF] Method: Oral University 16:23:00 [place] Physician s Heart Rate 2019-09-29 75 /min [facility] 16:23:00 [place] Physician s Procedures Procedure Date / Time Performing Source Performed Clinician [B] CMP 2019-09-28 University [facility] 00:00:00 [place] [facility]icians [B] CBC 2019-09-28 University 00:00:00 [place] [facility] History of Cyst excision [facility] [place] Physicians History of Debridement Universit y [facility] Physicians History of Hand Surgery Universi ty [facility] Physicians History of Knee arthroscopy Univ ersity [facility] Physicians History of University of Esophagogastroduodenoscopy [place] Physicians History of Colonoscopy [facility] [place] [facility] History of Surgical removal of U niversity of foreign body [place] Physicians History of CABG [facility] Physicians Encounters Start End Encounter Admission Attending Care Care Encounter Source Date/Time Date/Time Type Type Clinicians Facility Department ID 2020-05-03 2020-05-03 Emergency Cristofer LAMARLEEN 1.2.840.114 [id number] 14:26:00 16:25:00 Christa Isaac [id number] [place] 4.2.7.2.686 [place] [id number] 2020-05-03 2020-05-03 Orders Doctor ALPHONSE 1.2.840.114 [id number] 00:00:00 00:00:00 Only Unassigned, HERNANDO [id number] [place] [facility] 4.2.7.2.686 [id number] 2020-05-03 2020-05-03 Patient Jatin Douglas 1.2.840.114 [id number] 00:00:00 00:00:00 Outreach Hugh Mcnally [id number] [place] 4.2.7.2.686 [id number] 2020-02-05 2020-02-05 Patient Trupti Ahn 1.2.840.114 [id number] 00:00:00 00:00:00 Outreach Vee Whitey [id number] [place] 4.2.7.2.686 [id number] 403 2020-01-28 2020-01-28 Patient Trupti Ahn 1.2.840.114 [id number] 00:00:00 00:00:00 Outreach Vee Whitey [id number] [place] 4.2.7.2.686 [id number] 403 2020-01-18 2020-01-18 Patient Keanu Douglasanders 1.2.840.114 [id number] 00:00:00 00:00:00 Outreach Hugh Mcnally [id number] [place] 4.2.7.2.686 [id number] 403 2020-01-08 2020-01-08 Patient Keanu Douglasanders 1.2.840.114 [id number] 00:00:00 00:00:00 Outreach Hugh W Mcnally [id number] [place] 4.2.7.2.686 [id number] 2020-01-07 2020-01-07 Patient Trupti Ahn 1.2.840.114 [id number] 00:00:00 00:00:00 Outreach Vee Mcnally 350.1.13.10 [place] 4.2.7.2.686 [id number] 403 2019-12-22 2019-12-22 Patient Trupti Ahn 1.2.840.114 [id number] 00:00:00 00:00:00 Outreach E Mcnally [id number] [place] 4.2.7.2.686 [id number] 403 2019-12-16 2019-12-16 Patient Trupti Ahn 1.2.840.114 [id number] 00:00:00 00:00:00 Outreach Vee Mcnally 350.1.13.10 [place] 4.2.7.2.686 [id number] 2019-12-11 2019-12-11 Patient Jatin Douglas 1.2.840.114 [id number] 00:00:00 00:00:00 Outreach Hugh Whitey 350.1.13.10 [place] 4.2.7.2.686 [id number] 403 2019-12-10 2019-12-10 Patient Jatin Douglas 1.2.840.114 [id number] 00:00:00 00:00:00 Outreach Hugh Whitey 350.1.13.10 [place] 4.2.7.2.686 [id number] 403 2019-12-03 2019-12-03 Patient Jatin Douglas 1.2.840.114 [id number] 00:00:00 00:00:00 Outreach Hugh Whitey 350.1.13.10 [place] 4.2.7.2.686 [id number] 403 2019-12-02 2019-12-02 Patient Trupti Ahn 1.2.840.114 [id number] 00:00:00 00:00:00 Outreach E Mcnally 350.1.13.10 [place] 4.2.7.2.686 [id number] 403 2019-12-01 2019-12-01 Patient Jatin Douglas 1.2.840.114 [id number] 00:00:00 00:00:00 Outreach Hugh Mcnally 350.1.13.10 [place] 4.2.7.2.686 [id number] 403 2019-11-26 2019-11-26 Patient Jatin Douglas 1.2.840.114 [id number] 00:00:00 00:00:00 Outreach Hugh Mcnally 350.1.13.10 [place] 4.2.7.2.686 [id number] 403 2019-11-25 2019-11-25 Patient Trupti Ahn 1.2.840.114 [id number] 16:38:53 16:38:57 Outreach Vee Whitey 350.1.13.10 [place] 4.2.7.2.686 [id number] 403 2019-11-20 2019-11-20 Patient Trupti Ahn 1.2.840.114 [id number] 00:00:00 00:00:00 Outreach Vee Mcnally 350.1.13.10 [place] 4.2.7.2.686 [id number] 2019-11-16 2019-11-16 Orders Doctor ALPHONSE 1.2.840.114 [id number] 00:00:00 00:00:00 Only Unassigned, HERNANDO 350.1.13.10 [place] [facility] 4.2.7.2.686 [id number] 2019-11-11 2019-11-11 Patient Jatin Douglas 1.2.840.114 [id number] 00:00:00 00:00:00 Outreach Hugh Mcnally 350.1.13.10 [place] 4.2.7.2.686 [id number] 2019-10-27 2019-10-27 Telephone BRIANNA Carpio [id number] 00:00:00 00:00:00 Grzegorz Ra Alejandro 350.1.13.10 [place] 4.2.7.2.686 [facility] [id number] nal [address] 2019-09-29 2019-09-29 Annette BORREGO [facility] [id number] [facility] 15:00:00 15:00:00 t; IGOR BORREGO M.D. Advanced [facility] Arabella COSTA M.D. Failure - [facility]ic i [place] ans Results This patient has no known results.
--- OUTSIDE RECORDS SUMMARY | 2020-06-03 17:43 | XMS REPORT | Summary of Care ---
:1955 Author Organization [facility] - Health Address [address] [place] [address] Care Team Providers Name Role Phone Ra Carpio Primary Care Provider Raegan Yadav DO Insurance Sales Assistant Reason for Visit Reason Comments Other Sent from PCP for low H&H Auth/Cert Status Reason Specialty Diagnoses / Referred By Referred To Procedures Contact Contact Emergency Medicine [facility] Em ergency Dept [address] [place] [address] Fax: Encounter Details Date Type Department Care Team Description 05/03/2020 Emergency ADC-Emergency Christa Cleveland, Syncope , unspecified Department DO syncope type (Primary [address] Dx) [place], [place] [address] [place] [address] [phone] Allergies Active Allergy Reactions Severity Noted Date Comments Ajslfwekjmmqc-Kt-Vszxzmywnvg Hallucinations 08/18/2019 Spironolactone Other - See comments [...] neuropathy, Ischemic cardiomyopathy, Coronary artery disease involving [place] coronary artery of [place] heart without angina pectoris, Systolic congestive heart [...] Added automatically from request for nick ramu [id number] Dysphagia, unspecified type 03/25/2018 Overview: Added automatically from request for nick ramu [id number] Atrial flutter 10/15/2017 Chronic diastolic congestive heart failure 10/14/2017 HTN (hypertension) 10/14/2017 HLD (hyperlipidemia) 10/14/2017 Type 2 diabetes mellitus without complication 10/15/19 18 Pneumonia 10/13/2017 NSTEMI (non-ST elevated myocardial infarction) 018 History of WV (myocardial infarction) 09/12/2017 Foreign body in foot, [...] THE ER TODAY: None YOUR PRESCRIPTIONS AND UZUT-NBS-PZHUMOC MEDICATION RECOMMENDATIONS: Please take iron tablets daily. SPECIAL CARE INSTRUCTIONS: None FOLLOW-UP RECOMMENDATIONS: RECOMMEND FOLLOW-UP WITH A PRIMARY CARE PROVIDER OR SPECIALIST IN 2-5 DAYS, ESPECIALLY IF NO IMPROVEMENT IN SYMPTOMS. TO FOLLOW-UP WITHIN THE [facility], TRY THESE OPTIONS (CLINIC APPOINTMENTS AVAILABLE ON [id number] BASIS): 1. SCHEDULE AN APPOINTMENT ONLINE AT [email or web address][facility] 2. OR CALL THE [facility] ACCESS CENTER AT OR 3. OR CALL YOUR [facility] PHYSICIAN'S OFFICE DIRECTLY IF YOU ARE ALREADY AN ESTABLISHED [facility] PATIENT. OR, YOU MAY FOLLOW-UP WITH A PROVIDER OF YOUR CHOICE, SUCH : 1. A PHYSICIAN OF YOUR CHOICE 2. [facility], . LOCATIONS IN [facility] 3. [facility], [address] [place] [place], [place]; [phone] RETURN TO ER FOR WORSENING OF SYMPTOMS. AttachmentsThe following attachments cannot be sent through Care Everywhere. 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 Also has a knowledge management advisor. Has h/o cad s/p CABG, dm, htn and lipids.Also has h/o CKD. Here for eval. Past Medical History/Immunizations: Past Medical History: Diagnosis Date CAD (coronary artery disease) CHF (congestive heart failure) Chronic kidney disease DM neuropathy, type II diabetes mellitus History of WV (myocardial infarction) 09/2017 HLD (hyperlipidemia) HTN (hypertension) Peripheral arterial disease Tetanus received in last 5 years: Yes Childhood immunizations: Up-to-date Allergies: Allergies Allergen Reactions Anextuss [Dlinfzfyznafe-Lc-Zoneashmgke] Hallucinations Spironolactone Other - See comments K [...] Left 08/26/2019 Surgeon: Marlo Osman MD; Location: [facility] CORONARY ARTERY BYPASS GRAFT N/A 09/01/2019 Surgeon: Yu Marina MD; Location: [facility] CYST EXCISION N/A 10/2016 perianal area ESOPHAGOGASTRODUODENOSCOPY N/A 08/26/2019 Surgeon: Marlo Osman MD; Location: [facility] OR Location FOOT DEBRIDEMENT Left 09/02/2017 Surgeon: [...] Left 09/05/2017 Surgeon: Johanny Krishnamurthy DPM; Location: [facility] [place] Amadou Review of Systems: Review of [...] verbal permission to speak with Edgardo (caregiver) [phone] concerning any and all medical information. Password: [...] I will submit an application to the [facility] Indigent Program. I will complete CASEBOOK application. documented as of this encounter Implants Implanted Type Area Landscaping Supervisor Device Identifier Shelf Exp iration Model / [...] Syncope, unspecif ied Results for this PANEL (75040) CDT syncope type procedure are in (ALB,T.PRO,BILI [...] Sig nature NT-proBNP 5,460 (H) <=125 pg/mL [facility] Specimen Blood - VENOUS Narrative Performed At Biotin has been reported to cause a negative [facility] bias, interpret results relative to patient's use of biotin. Performing Organization Address City/State/Zipcode Phone Number [facility] CLIA: [id number] [place] [address] Troponin I (05/03/2020 2:53 PM CDT) Pathologist Sig nature TROPONIN I 0.034 <=0.034 ng/mL [facility] Specimen Blood - VENOUS Narrative Performed At Equal or Less than 0.034 ng/ml---Normal [facility] Note: Cardiac troponin begins to rise [...] patient's use of biotin. Performing Organization Address [facility] Phone Number [facility] CLIA: [id number] [place], [place] [address] LAB[address]ATORY [address] [place] [address] Hepatic Function Panel (ALB, T.PRO, BILI T, BU/BC, ALT, AST, ALK PHOS) (05/03/2020 2:53 PM CDT) Pathologist Sig nature TOTAL BILI 0.5 0.1 - 1.1 mg/dL [facility] BILI UNCON 0.5 0.1 - 1.1 mg/dL [facility] BILI CONJ 0.0 0.0 - 0.3 mg/dL [facility] T PROTEIN 6.5 6.3 - 8.2 g/dL [facility] ALBUMIN 3.6 3.5 - 5.0 g/dL [facility] ALK PHOS 62 34 - 122 U/L [facility] ALTv 49 5 - 50 U/L [facility] AST(SGOT) 50 (H) 13 - 40 U/L [facility] Specimen Blood - VENOUS Performing Organization Address [facility] Phone Number [facility] CLIA: [id number] [place] [address] [place] [address] Basic Metabolic Panel (NA, K, CL, CO2, GLUCOSE, BUN, CREATININE, CA) (05/03/2020 2:53 PM CDT) NA 137 135 - 145 [facility] mmol/L [facility] K 4.2 3.5 - 5.0 [facility] mmol/L [facility] CL 100 98 - 108 mmol/L [facility] CO2 TOTAL 28 23 - 31 mmol/L [facility] AGAP 9 2 - 16 [facility] BUN 55 (H) 7 - 23 mg/dL [facility] GLUCOSE 141 (H) 70 - 110 mg/dL [facility] CREATININE 1.76 (H) 0.60 - 1.25 [facility] mg/dL [facility] CALCIUM 9.4 8.6 - 10.6 [facility] mg/dL [facility] eGFR Calculation 39.2 mL/min/1.73m2 [facility] (Non-[facility] LABORATORY Bur[place]ian) eGFR Calculation 47.5 mL/min/1.73m2 [facility] () [facility] Specimen Blood - VENOUS Narrative Performed At Association of Glomerular Filtration Rate (GFR) [facility] and Staging of Kidney Disease* + [...] tests). Performing Organization Address City/State/Zipcode Phone Number [facility] CLIA: [id number] [place] [address] CBC with Differential (05/03/2020 2:53 PM CDT) WBC 7.80 4.20 - 10.70 [facility] 10*3/L [facility] RBC 3.84 (L) 4.26 - 5.52 [facility] 10*6/L [facility] HGB 7.9 (L) 12.2 - 16.4 [facility] g/dL [facility] HCT 25.3 (L) 38.4 - 49.3 % [facility] MCV 65.9 (L) 81.7 - 95.6 [facility] LAB[facility]ATORY MCH 20.6 (L) 26.1 - 32.7 [facility] pg [facility] MCHC 31.2 31.2 - 35.0 [facility] g/dL [facility] RDW-SD 35.9 (L) 38.5 - 51.6 [facility]ORY RDW-CV 15.5 (H) 12.1 - 15.4 % [facility] PLT 183 150 - 328 [facility] 10*3/L [facility] MPV 12.7 9.8 - 13.0 fL [facility] IPF % 3.0Comment: Platelet 1.2 - 10.7 % [facility] count measured by HOSPITAL fluorescence method. LABORATORY NRBC/100 WBC 0.0 0.0 - 10.0 [facility] /100 WBCs [facility] NRBC x10^3 <0.01 10*3/L [facility] GRAN MAT (NEUT) % 65.3 % [facility] IMM GRAN % 0.30 % [facility] LYMPH % 19.0 % [facility] MONO % 8.6 % [facility] EOS % 6.2 % [facility] BASO % 0.6 % [facility] GRAN MAT 5.10 1.99 - 6.95 [facility] x10^3(ANC) 10*3/uL [facility] IMM GRAN x10^3 <0.03 0.00 - 0.06 [facility] 10*3/uL [facility] LYMPH x10^3 1.48 1.09 - 3.23 [facility] 10*3/uL HOSPITAL LABORATORY MONO x10^3 0.67 0.36 - 1.02 [facility] 10*3/uL [facility] EOS x10^3 0.48 0.06 - 0.53 [facility] 10*3/uL HOSPITAL LABORATORY BASO x10^3 0.05 0.01 - 0.09 [facility] 10*3/uL HOSPITAL LABORATORY Specimen Blood - VENOUS Performing Organization Address City/[facility]/Zipcode Phone Number [facility] CLIA: [id number] [place] [address] Type and Screen - Type and Screen expires at midnight on the 3rd day after it was drawn. A current Type and Screen is required when RBCs are requested. For all other blood products, a Type and Screen performed during the current hospitalization i... (05/03/2020 2:52 PM CDT) [facility] Sig nature ABO & RH A Positive LAB Comment: Performed at [facility] Laboratory [facility] Blood Bank [address] [place] [phone] Toll Free: [phone] CLIA No. [id number] IAT Negative LAB Comment: Performed at [facility] Laboratory [facility] [address] [place] [phone] Toll Free: [phone] CLIA No. [id number] Specimen Blood - VENOUS Performing Organization Address City/State/Zipcode Phone Number [facility] documented in this encounter Visit Diagnoses Diagnosis Syncope, unspecified syncope type - Prim jessenia documented in this encounter Insurance Payer Benefit Plan / Subscriber ID Effective Dates Phone Addre ss Type Group MEDICARE MEDICARE PART [id number] 2020-Roddy [phone] [facility] Medicare A & B t 2 [id number] KAVIN LOMBARDI [id number] (Work) documented as of this encounter"
--- OUTSIDE RECORDS SUMMARY | 2020-06-03 17:43 | XMS REPORT | Summary of Care ---
:1955 Author Organization [facility] Address [address] [place] [address] Care Team Providers Name Role Phone Ra Carpio Primary Care Provider Raegan Yadav DO Wellness Consultant Reason for Visit Reason Comments Social Work Encounter Details Date Type Department Care Team Description 05/03/2020 Patient Outreach [facility] Hailey Douglas, DERRICK BOAT CAPTAIN Social Work Network[address] [address] Allergies Active Allergy Reactions Severity Noted Date Comments Gypniklmaarhu-Ef-Grddfbmtivu Hallucinations 08/18/2019 Spironolactone Other - See comments [...] neuropathy, Ischemic cardiomyopathy, Coronary artery disease involving [place] coronary artery of [place] heart without angina pectoris, Systolic congestive heart [...] Added automatically from request for nick guallpa [id number] Dysphagia, unspecified type 03/25/2018 Overview: Added automatically from request for nick guallpa [id number] Atrial flutter 10/15/2017 Chronic diastolic congestive heart failure 10/14/2017 HTN (hypertension) 10/14/2017 HLD (hyperlipidemia) 10/14/2017 Type 2 diabetes mellitus without complication 10/15/19 18 Pneumonia 10/13/2017 NSTEMI (non-ST elevated myocardial infarction) 018 History of CA (myocardial infarction) 09/12/2017 Foreign body in foot, [...] - 05/03/2020 11:45 AM CDTSocial Worker Note: CYBER OPERATOR spoke with patient's can machine operator Edgardo who stated that the patient was on his way to having a blood transfusion and she wanted to know if I could meet them in [place] at [facility] with a [employer] form. CYBER OPERATOR advised that I cannot but the SW at [facility] should be able to print a form for them to fill out and the patient to have two witnesses present. Hugh Douglas LMSW [facility]. documented in this encounter Plan of [...] I will submit an application to the [facility] Indigent Program. I will complete CASEBOOK application. documented as of this encounter Implants Implanted Type Area Stock Sorter Device Identifier Shelf Exp iration Model / Date Serial / L ot Hip HIP Left Knee Screws documented as of this encounter Results Not on filedocumented in this encounter Insurance Payer Benefit Plan / Subscriber ID Effective Dates Phone Addre ss Type Group MEDICARE MEDICARE PART [id number] 2020-Roddy [phone] [address] Medicare A & B t 2 [id number] KAVIN LOMBARDI [id number] documented as of this encounter
[2020-06-03] MEDS ORDERED: D50W 25 GM/50 ML SYRINGE IV PRN (18:24)
[2020-06-03] MEDS ORDERED: GLUCAGON 1 MG/VIAL IM PRN (18:24)
[2020-06-03] MEDS ORDERED: DOCUSATE NA 100 MG CAP PO PRN (18:39)
[2020-06-03] MEDS ORDERED: LACTULOSE 20 GM/30 ML UCUP PO PRN (18:44)
[2020-06-03] MEDS: HYDRALAZINE HCL 25 MG TABLET PO SCH (20:53)
[2020-06-03] MEDS: DOXAZOSIN 4 MG TAB PO SCH (20:54)
[2020-06-03] MEDS: INSULIN GLARGINE 100 UNITS/ML SQ SCH (20:54)
[2020-06-03] MEDS: GLUCERNA SHAKE 237 ML CAN PO SCH (20:54)
[2020-06-03] MEDS: TAMSULOSIN 0.4 MG SR CAP PO SCH (20:54)
[2020-06-03] MEDS: TRAZODONE 50 MG TABLET PO PRN (22:14)
[2020-06-04 00:31] LABS: Urine Appearance CLEAR; Urine Bilirubin NEGATIVE (NEG); Urine Blood NEGATIVE (NEG); Urine Color YELLOW; Urine Glucose 1+ (NEG); Urine Protein 3+ (NEG); Urine Specific Gravity 1.015 (1.005-1.030); Urine Urobilinogen 0.2 mg/dL (0.2-1.0)
[2020-06-04 00:38] LABS: Urine Bacteria 20-50 /HPF (NONE SEEN); Urine Mucus 1+ /HPF (NONE SEEN); Urine RBC <5 /HPF (NONE SEEN)
[2020-06-04] MEDS ORDERED: GABAPENTIN 100 MG CAP PO PRN (03:45)
[2020-06-04] MEDS ORDERED: TRAMADOL HCL 50 MG TAB PO PRN (03:47)
[2020-06-04] MEDS ORDERED: GLUCAGON 1 MG/VIAL IM PRN (04:22)
[2020-06-04] MEDS ORDERED: D50W 25 GM/50 ML SYRINGE IV PRN (04:22)
[2020-06-04] MEDS: METOPROLOL XL 50 MG TAB PO SCH (05:38)
[2020-06-04 06:23] LABS: Absolute Lymphocytes (CBC) 1.5 K/uL (0.7-4.9); Basophils % 0.6 % (0-1.3); Hematocrit 28.9 % (39.6-49.0); MPV 9.7 fL (7.6-11.3)
[2020-06-04 06:40] LABS: Anisocytosis 2+; Blood Morphology Comment NOTED (NOT SEEN); Burr Cells 1+; Platelet Estimate ADEQ; White Blood Cell Scan OK (OK)
[2020-06-04 06:58] LABS: Magnesium 2.6 mg/dL (1.8-2.4); Potassium 4.1 mmol/L (3.5-5.1); Prealbumin 17.2 mg/dL (20-40)
[2020-06-04] MEDS: PANTOPRAZOLE 40MG TABLET PO SCH (07:08)
[2020-06-04] MEDS: INSULIN -REGULAR HUMAN 50 UNIT/0.5 ML ML SQ SCH ×4 (07:15→20:19)
[2020-06-04] MEDS: AMLODIPINE 10 MG TAB PO SCH (08:00)
[2020-06-04] MEDS: DOXAZOSIN 4 MG TAB PO SCH ×2 (08:00→20:00)
[2020-06-04] MEDS: CALCITONIN NASAL SPRAY 200 IU/DOSE NAS SCH (08:00)
[2020-06-04] MEDS ORDERED: FERROUS SULFATE 325 MG TAB PO SCH (08:30)
[2020-06-04] MEDS: GLUCERNA SHAKE 237 ML CAN PO SCH ×3 (09:00→20:18)
[2020-06-04] MEDS: ESCITALOPRAM 20 MG TAB PO SCH (09:42)
[2020-06-04] MEDS: ENOXAPARIN 40 MG/0.4 ML SQ SCH (09:42)
[2020-06-04] MEDS: CALCITROL 0.25 MCG CAP PO SCH (09:44)
[2020-06-04] MEDS: levoFLOXacin 250 MG TAB PO SCH (09:45)
[2020-06-04] MEDS: VITAMIN D 5,000 UNIT CAP PO SCH (09:45)
[2020-06-04] MEDS: HYDRALAZINE HCL 25 MG TABLET PO SCH ×3 (09:46→20:14)
[2020-06-04] MEDS: FUROSEMIDE 40 MG TABLET PO SCH ×2 (09:46→16:54)
[2020-06-04] MEDS: FOLIC ACID 1 MG TABLET PO SCH (09:46)
[2020-06-04] MEDS: CLOPIDOGREL 75 MG TABLET PO SCH (09:46)
[2020-06-04] MEDS ORDERED: DOXAZOSIN 2 MG TAB ONE ×2 (09:51→19:37)
[2020-06-04] MEDS: LIDOCAINE 4% PATCH TOP SCH (10:54)
[2020-06-04] MEDS: FE SULF/FA/VIT B COMP & C TAB PO SCH (12:23)
[2020-06-04] MEDS: TRAMADOL HCL 50 MG TAB PO PRN (13:52)
--- NOTE | 2020-06-04 14:44 | R.HP ---
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 board/care, assisted living, usp, transitional living) PRE-HOSPITAL LIVING WITH Family/Relatives ENCOUNTER PHYSICIAN: Dr. Vel Murphy M.D. 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 GILL HOME TYPE AND DETAILS: Type of home: single family house # of levels in the residence: 1 # of steps within the residence: 0 # of steps to enter the residence: 0 ONSET DATE: 05/17/2020 PRIMARY DIAGNOSIS-RELATED SURGERIES: No surgeries related to the primary diagnosis were performed. HISTORY OF PRESENT ILLNESS (HPI): Pt. is a 65 yo Right-handed male of unknown race. On 05/17/2020 he was admitted to [facility] with diagnosis HEART FAILURE. His impairment category is Cardiac 09 - Cardiac Disorders (09). Pre-morbidly, Pt. was independent/mod-I in Locomotion, Social Cognition, Self-Care, and Communication ; and he had good Balance, Transfers Control, and Sphincter Control. Currently, he has deficits of Safety Awareness, Social Cognition, Transfers Control, Sphincter Contro l, Self-Care, Communication, and Endurance. Pt. is now referred to [facility] for acute in-patient rehabilitation in order to maximize patient's functional independence in activities of daily living, strength, ROM, and mobi lity. Patient has realistic goal of being discharged at assistance level Dago-to-sup to reside at Home with Family/Relatives. MEDICATION ALLERGIES: No Known Drug Allergies (NKDA) ENVIRONMENTAL ALLERGIES: - Substance Allergies None Known - Other Allergies None Known PAST MEDICAL HISTORY: HEART DISEASE HYPERTENSION LUNG DISEASE GI DISEASE DIABETES CANCER PARKINSONS DISEASE COPD CAD HYPERLIPIDEMIA PAST SURGICAL HISTORY: KNEE SURGERY HIATAL HERNIA REPAIR LEFT BIPOLAR HEMIARTHROPLASTY HIP SURGERY CABG SOCIAL HISTORY: - Home Living Family/Relatives REVIEW OF SYSTEMS: - Gen No Chills No Fatigue No Fever - Eyes No Double Vision No itchiness - ENMT No Difficulty Swallowing - CVS No Chest Discomfort No Chest Pain No Fatigue No Weight Gain - Resp No Cough No Shortness of Breath - GI Continent No Abdominal Pain No Constipation No Diarrhea - Continent No Kidney Pain No Painful Urination No Urinary Urgency - MSK No Joint Pain No Muscle Cramps No Stiffness - Skin No Itching No Rash No Suspicious Lesions - Neuro No Coordination Difficulty No Difficulty with Concentration No Memory Loss No Seizures No Weakness - Psych No Anxiety No Depression No HIV Exposure No Persistent Infections No Seasonal Allergies - Endo No Cold/Heat Intolerance No Excessive Hunger No Excessive Thirst No Excessive Urination PHYSICAL EXAM - Gen Alert and awake Lying in bed No apparent distress Oriented to: person, time, and place - Skin No skin breakdown. Normacephalic - Eyes No abnormalities - ENMT No abnormalities - Neck No abnormalities No cervical adenopathy - CVS RRR - Chest No abnormalities - Resp No wheezing - Abd Soft - GI Non distended Deferred - No abnormalities - Ext No significant edema - MSK 4+/5 weakness in both lower extremities. - Neuro No focal deficits - Psych No abnormalities VITAL SIGNS Temperature: 97.7 F SBP/DBP: 116/60 Pulse: 65 Resp: 16 NURSING: - Shower allowing shower ACTIVITIES OOB only with supervision QI SCORES: - Self-Care A. Eating 03-Partial/moderate assistance B. Oral hygiene 03-Partial/moderate assistance C. Toileting hygiene 02-Substantial/maximal assistance E. Shower/bathe self 02-Substantial/maximal assistance F. Upper body dressing 02-Substantial/maximal assistance G. Lower body dressing 02-Substantial/maximal assistance H. Putting on/taking off footwear 88-Not attempted due to medical condition or safety concerns - Mobility A. Roll left and right 03-Partial/moderate assistance B. Sit to lying 03-Partial/moderate assistance C. Lying to sitting on side of bed 02-Substantial/maximal assistance D. Sit to stand 02-Substantial/maximal assistance E. Chair/tit-sy-gatza transfer 02-Substantial/maximal assistance F. Toilet transfer 02-Substantial/maximal assistance G. Car transfer 88-Not attempted due to medical condition or safety concerns I. Walk 10 feet 02-Substantial/maximal assistance J. Walk 50 feet with two turns 88-Not attempted due to medical condition or safety concerns K. Walk 150 feet 88-Not attempted due to medical condition or safety concerns L. Walking 10 feet on uneven surfaces 88-Not attempted due to medical condition or safety concerns M. 1 step (curb) 88-Not attempted due to medical condition or safety concerns N. 4 steps 88-Not attempted due to medical condition or safety concerns O. 12 steps 88-Not attempted due to medical condition or safety concerns P. Picking up object 88-Not attempted due to medical condition or safety concerns R. Wheel 50 feet with two turns 88-Not attempted due to medical condition or safety concerns S. Wheel 150 feet 88-Not attempted due to medical condition or safety concerns - Bladder and Bowel Bladder continence Bowel continence - Endurance Fair - Balance Poor - Safety Awareness Poor CURRENT FUNC. DEFICITS: Self-Care, Mobility, Endurance, Balance, and Safety Awareness MEDICATIONS: - Other See attached MAR (Medication Administration Record) ASSESSMENT: Pt. is a 65 yo Right-handed male of unknown race.On 05/17/2020 he was admitted to [facility] with diagnosis HEART FAILURE.His impairment category is Cardiac 09 - Cardiac Disorders (09).Pre -morbidly, Pt. was independent/mod-I in Locomotion, Social Cognition, Self-Care, and Communication; a nd he had good Balance, Transfers Control, and Sphincter Control.Currently, he has deficits of Safety Awareness, Social Cognition, Transfers Control, Sphincter Control, Self-Care, Communication, and End urance.Pt. is now referred to [facility] for acute in-patient rehabilitation i n order to maximize patient's functional independence in activities of daily living, strength, ROM, a nd mobility.- Rehab Goal Patient has realistic goal of being discharged at assistance level Dago-to-sup to reside at Home with Family/Relatives. REHAB PLAN: - Physical Therapy Gait dysfunction - to improve, our physical therapists will perform initial evaluation of pt's status upon admission and devise an individualized program for Gait Training, and Wheel Chair mobility Inability to transfer - to improve, our physical therapists will perform initial evaluation of pt's s tatus upon admission and devise an individualized program for Bed mobility Need for home safety evaluation - to improve, our physical therapists will perform initial evaluation of pt's status upon admission and devise an individualized program for Home Evaluation Need in caregiver upon discharge - to improve, our physical therapists will perform initial evaluatio n of pt's status upon admission and devise an individualized program for Caregiver Training Edema - to improve, our physical therapists will perform initial evaluation of pt's status upon admi ssion and devise an individualized program for Elevation Training, and Lymphedema Therapy New precaution - to improve, our physical therapists will perform initial evaluation of pt's status u carina admission and devise an individualized program for Patient precaution education Poor endurance - to improve, our physical therapists will perform initial evaluation of pt's status u carina admission and devise an individualized program for Endurance Training Weakness - to improve, our physical therapists will perform initial evaluation of pt's status upon ad mission and devise an individualized program for Aquatic Therapy, Neuromuscular Reeducation, and Stre ngthening Achieving independence - to improve, our physical therapists will perform initial evaluation of pt's status upon admission and devise an individualized program for Community Reintegration Activities - Occupational Therapy ADL deficits - to improve, our occupation therapists will perform initial evaluation of pt's status u carina admission and devise an individualized program for Bathing, Bed mobility, Community Reintegration , Cooking, Dressing, Eating, Fine Motor Skills, Grooming, Homemaking, Kitchen Mobility, Laundry, Neelima ent Education, Safety Awareness, Splinting - Positioning, Transfers(Toilet, Tub, Shower), and Wheel C hair Management Cognitive deficits - to improve, our occupation therapists will perform initial evaluation of pt's st atus upon admission and devise an individualized program for Cognition - orientation Need for animal care technician - to improve, our occupation therapists will perform initial evaluation of pt's s tatus upon admission and devise an individualized program for Caregiver Training Weakness - to improve, our occupation therapists will perform initial evaluation of pt's status upon admission and devise an individualized program for Aquatic Therapy, Balance, Endurance, UE ROM, and U E strengthening MEDICAL PLAN: - Diet Type Start Regular - Diet - Liquid Texture Start Regular - Tube Feed Start N/A - Other See attached MAR (Medication Administration Record) - Diet - Solid Texture Regular - Shower shower DISCHARGE PLAN: - Estimated Length of Stay (days) 10. - Consensus on plan Discharge plan has been discussed with primary caregiver. Patient/Family is in agreement with the lakisha n. Primary caregiver is in agreement with the plan. - Patient/Family Goals Return home independently. - Planned Living Setting Upon Discharge Home, to live with Family/Relatives. Transitional Living. 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
--- NOTE | 2020-06-04 14:46 | PAPE ---
POST ADMISSION PHYSICIAN EVALUATION PATIENT: [facility] MR# [id number] REFERRING DOCTOR PRIMARY CARE PHYSICIAN Dr. 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 Vel Murphy M.D. ADMISSION DIAGNOSIS: HEART FAILURE ONSET DATE 05/17/2020 POST-ADMISSION FUNCTIONAL/MEDICAL STATUS: - Bladder Same accident frequency: Ind - No accidents in the past 7 days - Bowel Same accident frequency: Ind - No accidents in the past 7 days - Walking Same score based on distance walked: 0(N/A) - Wheelchair Same score based on distance traveled: 0(N/A) STATUS CHANGE EVALUATION: No change in Functional or Medical Status is identified compared with Pre-Admission screening. PATIENT NEEDS CLOSE MEDICAL SUPERVISION BY A REHABILITATION PHYSICIAN FOR: Coordination of Treatment Team PATIENT REQUIRES 24X7 REHAB NURSING FOR MEDICAL AND FUNCTIONAL MGT. OF THE FOLLOWING DEFICITS: Disease Management Medication Management Patient/Family Education Providing Safe Environment PATIENT REQUIRES INTENSIVE, COORDINATED INTERDISCIPLINARY APPROACH TO REHAB: Arranging Home Equipment/Services Discharge Planning Family Intervention/Training Hot Tamale Man/Case Management LIST OF IDENTIFIED AND POTENTIAL PROBLEMS: Alteration in leisure activities Bladder, Incontinence Bowel, Incontinence Infection, Actual or Potential Mobility Impaired Pain, Alteration in Comfort Self Care Deficit Skin Integrity, Actual or Potential Urinary Tract Infection (UTI), Actual or Potential PATIENT COULD BE AT RISK FOR COMPLICATIONS FROM ADVERSE MEDICAL CONDITIONS DUE TO HIS/HER COMORBIDITI ES AND THE RIGORS OF THE INTENSIVE REHABILLITATION PROGRAM. METHODS OR INTERVENTIONS TO AVOID COMPLIC ATIONS INCLUDE: - Infection Clinical staff to assess and manage the signs and symptoms of infection including fever, redness, war mth, etc. - Urinary Tract Infection - Falls Patient will be evaluated for Fall Precautions and will be placed on Fall Precautions as indicated pe r protocol. - Skin Breakdown Nursing will assess skin daily using assessment tool and will place on Skin Breakdown Precautions as indicated per protocol. - Pain Clinical staff may employ non-medication methods such as massage, distraction, decrease stimulus, etc . as needed. Clinical staff will assess patient's pain level every shift per protocol to assess and e nsure pain management effectiveness. Medications will be given and the pain level re-assessed. PRELIMINARY PLAN OF CARE: - Physical Therapy Patient needs Physical Therapy for a daily minimum of 1.5 hours at least 5 out of 7 days, to improve: Mobility, Strengthening, Transfers, Stretching, ROM, Endurance, Ability to manage stairs, Gait, and Balance. - Speech Therapy Patient needs Speech Therapy for a daily minimum of 0.5 hours at least 5 out of 7 days, to improve: S wallowing, Cognition, Language Skills, and Compensatory Strategies. - Rehabilitation Nursing Patient requires 24x7 Rehabilitation Nursing for: Pain Issues, Identifying and preventing risk factor s, Monitoring and reporting current medical conditions, Assisting with ambulation and transfer, Margarita ting with all ADL-s, Teaching patients about disease process and medications, Family teaching, Provid ing safe environment, Bowel and Bladder Issues, Skin Integrity, and Medication Management. Patient needs Hot Tamale Man and/or Case Management for: Discharge Planning, Arranging Home Equipmen t or Services, and Family Interventions. - Dietary and Nutrition Services Patient needs Dietary and Nutrition Services for: Adequate Nutrition, Nutritional Supplements, and Nu tritional Education. - Occupational Therapy Patient needs Occupational Therapy for a daily minimum of 1.5 hours at least 5 out of 7 days, to impr ove Activities of Daily Living, including: Eating, Grooming, Bathing, Dressing, Toileting, Toilet Tra nsfers, Community Reintegration, Higher functional activities, Adaptive Equipment, Splinting, Househo ld Tasks, and Other activities as determined. QI SCORES: - Self-Care A. Eating 03-Partial/moderate assistance B. Oral hygiene 03-Partial/moderate assistance C. Toileting hygiene 02-Substantial/maximal assistance E. Shower/bathe self 02-Substantial/maximal assistance F. Upper body dressing 02-Substantial/maximal assistance G. Lower body dressing 02-Substantial/maximal assistance H. Putting on/taking off footwear 88-Not attempted due to medical condition or safety concerns - Mobility A. Roll left and right 03-Partial/moderate assistance B. Sit to lying 03-Partial/moderate assistance C. Lying to sitting on side of bed 02-Substantial/maximal assistance D. Sit to stand 02-Substantial/maximal assistance E. Chair/jto-ak-yrpog transfer 02-Substantial/maximal assistance F. Toilet transfer 02-Substantial/maximal assistance G. Car transfer 88-Not attempted due to medical condition or safety concerns I. Walk 10 feet 02-Substantial/maximal assistance J. Walk 50 feet with two turns 88-Not attempted due to medical condition or safety concerns K. Walk 150 feet 88-Not attempted due to medical condition or safety concerns L. Walking 10 feet on uneven surfaces 88-Not attempted due to medical condition or safety concerns M. 1 step (curb) 88-Not attempted due to medical condition or safety concerns N. 4 steps 88-Not attempted due to medical condition or safety concerns O. 12 steps 88-Not attempted due to medical condition or safety concerns P. Picking up object 88-Not attempted due to medical condition or safety concerns R. Wheel 50 feet with two turns 88-Not attempted due to medical condition or safety concerns S. Wheel 150 feet 88-Not attempted due to medical condition or safety concerns - Bladder and Bowel Bladder continence Bowel continence - Endurance Fair - Balance Poor - Safety Awareness Poor POTENTIAL FUNCTIONAL GOALS FOR PATIENT TO ACHIEVE BY DISCHARGE: - Safety Precaution Patient will remain free from falls or injury at time of discharge. - Bed Mobility Patient will perform bed mobility at 4-Bakari level of assistance. - Transfers Patient will complete transfers from bed to chair at 4-Bakari level of assistance. - Mobility Patient will ambulate 150 ft with 4-Bakari level of assistance with RW. PATIENT REHAB POTENTIAL Kym RODRIGUEZ is able and expected to receive 3 hours of individualized therapy daily on at least 5 rosales 7 days Kym RODRIGUEZ's prognosis for significant practical improvement within a reasonable period of time appear s Good Expected level of measurable improvement will be of a practical value to Kym RODRIGUEZ's functional capac ity or adaptations to impairments Has a viable Discharge Plan Medically appropriate; condition is sufficiently stable to participate in intensive rehab program DISCHARGE PLAN: - Estimated Length of Stay (days) 10. - Consensus on plan Discharge plan has been discussed with primary caregiver. Patient/Family is in agreement with the lakisha n. Primary caregiver is in agreement with the plan. - Patient/Family Goals Return home independently. - Planned Living Setting Upon Discharge Home, to live with Family/Relatives. Transitional Living. CONCLUSION ON REHABILITATION NECESSITY: I have evaluated patient's pre-admission functional status and, comparing it to the patient's post-ad mission functional status now, I conclude that the pre-admission assessment was accurate. Patient's c ondition on admission supports the medical necessity of admission to [facility]. It is safe to proceed with patient's therapy program. 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
--- NOTE | 2020-06-04 15:15 | FAST ---
PT QI REPORT FORM ENCOUNTER DATE AND TIME: 06/04/2020 08:00 ([employer] [employer]) NAME NAT RODRIGUEZ DATE OF : 1955 DATE OF ADMISSION: 06/03/2020 17:40 ([facility] [employer]) PHONE: AGE: 65 N# [id number] GENDER: Male ENCOUNTER PHYSICIAN: Dr. Vel Murphy M.D. ADMISSION DIAGNOSIS: - Cardiac 09 - Cardiac Disorders () HEART FAILURE. ROLL LEFT AND RIGHT: ROLL LEFT AND RIGHT - STEP 1: Does the patient complete the activity by him/herself with no assistance (physical, verbal/nonverbal cueing, setup/clean-up)? No. ROLL LEFT AND RIGHT - STEP 2: Does the patient need only setup/clean-up assistance from one helper? No. ROLL LEFT AND RIGHT - STEP 3: Does the patient need only verbal/nonverbal cueing or touching/steadying/contact guard assistance fro m one helper? Yes. 1. [id number] ADMISSION PERFORMANCE: Supervision or touching assistance CODE: 04 SIT TO LYING: SIT TO LYING - STEP 1: Does the patient complete the activity by him/herself with no assistance (physical, verbal/nonverbal cueing, setup/clean-up)? No. SIT TO LYING - STEP 2: Does the patient need only setup/clean-up assistance from one helper? No. SIT TO LYING - STEP 3: Does the patient need only verbal/nonverbal cueing or touching/steadying/contact guard assistance fro m one helper? No. SIT TO LYING - STEP 4: Does the patient need physical assistance - for example lifting or trunk support from one helper - wi th the helper providing less than half of the effort? Yes. 1. [id number] ADMISSION PERFORMANCE: Partial/moderate assistance CODE: [id number] - COMMENTS: Required BLE to be assisted back to bed due to back pain LYING TO SITTING: LYING TO SITTING ON SIDE OF BED - STEP 1: Does the patient complete the activity by him/herself with no assistance (physical, verbal/nonverbal cueing, setup/clean-up)? No. LYING TO SITTING ON SIDE OF BED - STEP 2: Does the patient need only setup/clean-up assistance from one helper? No. LYING TO SITTING ON SIDE OF BED - STEP 3: Does the patient need only verbal/nonverbal cueing or touching/steadying/contact guard assistance fro m one helper? Yes. 1. [id number] ADMISSION PERFORMANCE: Supervision or touching assistance CODE: 04 SIT TO STAND: SIT TO STAND - STEP 1: Does the patient complete the activity by him/herself with no assistance (physical, verbal/nonverbal cueing, setup/clean-up)? No. SIT TO STAND - STEP 2: Does the patient need only setup/clean-up assistance from one helper? No. SIT TO STAND - STEP 3: Does the patient need only verbal/nonverbal cueing or touching/steadying/contact guard assistance fro m one helper? No. SIT TO STAND - STEP 4: Does the patient need physical assistance - for example lifting or trunk support from one helper - wi th the helper providing less than half of the effort? Yes. 1. [id number] ADMISSION PERFORMANCE: Partial/moderate assistance CODE: [id number] - COMMENTS: Requires Min A Sit-stand pushing from arm rest of w/c TRANSFERS: BED, CHAIR: CHAIR/[id number] TRANSFER - STEP 1: Does the patient complete the activity by him/herself with no assistance (physical, verbal/nonverbal cueing, setup/clean-up)? No. CHAIR/[id number] TRANSFER - STEP 2: Does the patient need only setup/clean-up assistance from one helper? No. CHAIR/[id number]-[id number] TRANSFER - STEP 3: Does the patient need only verbal/nonverbal cueing or touching/steadying/contact guard assistance fro m one helper? No. CHAIR/[id number]-[id number] TRANSFER - STEP 4: Does the patient need physical assistance - for example lifting or trunk support from one helper - wi th the helper providing less than half of the effort? Yes. 1. [id number] ADMISSION PERFORMANCE: Partial/moderate assistance CODE: [id number] - COMMENTS: Min A with stand step pivot transfers TRANSFER TOILET: TOILET TRANSFER - STEP 1: Does the patient complete the activity by him/herself with no assistance (physical, verbal/nonverbal cueing, setup/clean-up)? No. TOILET TRANSFER - STEP 2: Does the patient need only setup/clean-up assistance from one helper? No. TOILET TRANSFER - STEP 3: Does the patient need only verbal/nonverbal cueing or touching/steadying/contact guard assistance fro m one helper? No. TOILET TRANSFER - STEP 4: Does the patient need physical assistance - for example lifting or trunk support from one helper - wi th the helper providing less than half of the effort? Yes. 1. [id number] ADMISSION PERFORMANCE: Partial/moderate assistance CODE: [id number] - COMMENTS: Min A with stand step pivot transfers TRANSFERS: CAR: Not attempted due to medical condition or safety concerns CODE: [id number] - COMMENTS: Unable to perform transfer simulating car set up due to pain on lower back WALK 10 FEET: WALK 10 FEET - STEP 1: Does the patient complete the activity by him/herself with no assistance (physical, verbal/nonverbal cueing, setup/clean-up)? No. WALK 10 FEET - STEP 2: Does the patient need only setup/clean-up assistance from one helper? No. WALK 10 FEET - STEP 3: Does the patient need only verbal/nonverbal cueing or touching/steadying/contact guard assistance fro m one helper? Yes. 1. [id number] ADMISSION PERFORMANCE: Supervision or touching assistance CODE: [id number] - COMMENTS: CGA gait with Rollator WALK 50 FEET: Not attempted due to medical condition or safety concerns CODE: [id number] - COMMENTS: Pt was only able to tolerate up to 10ft due to increasing pain on lower back WALK 150 FEET: Not attempted due to medical condition or safety concerns CODE: 88 [id number] - COMMENTS: Unable due to increasing back pain WALK 10 FEET UNEVEN: Not attempted due to medical condition or safety concerns CODE: 88 [id number] - COMMENTS: Unable at this time due to increasing pain on lower back 1 STEP (CURB): Not attempted due to medical condition or safety concerns CODE: 88 [id number] - COMMENTS: Unable at this time due to increasing pain on lower back PICKING UP OBJECT: Not attempted due to medical condition or safety concerns CODE: 88 [id number] - COMMENTS: Unable at this time due to back pain DOES THE PATIENT USE A WHEELCHAIR/SCOOTER? Q1. DOES THE PATIENT USE A WHEELCHAIR/SCOOTER?: Yes CODE: 1 WHEEL 50 FEET WITH TWO TURNS: WHEEL 50 FEET WITH TWO TURNS - STEP 1: Does the patient complete the activity by him/herself with no assistance (physical, verbal/nonverbal cueing, setup/clean-up)? No. WHEEL 50 FEET WITH TWO TURNS - STEP 2: Does the patient need only setup/clean-up assistance from one helper? No. WHEEL 50 FEET WITH TWO TURNS - STEP 3: Does the patient need only verbal/nonverbal cueing or touching/steadying/contact guard assistance fro m one helper? Yes. 1. [id number] ADMISSION PERFORMANCE: Supervision or touching assistance CODE: 04 INDICATE THE TYPE OF WHEELCHAIR/SCOOTER USED: RR1. INDICATE THE TYPE OF WHEELCHAIR/SCOOTER USED.: Manual CODE: 1 WHEEL 150 FEET: Not attempted due to medical condition or safety concerns CODE: 88 [id number] - COMMENTS: Pt unable to tolerate prolonged sitting on w/c due to increasing back pain INDICATE THE TYPE OF WHEELCHAIR/SCOOTER USED: CODE: EXPR BLADDER AND BOWEL: CODE: EXPR CODE: EXPR SIGNATURE PANEL: The following modified sections: 1. [id number] Admission Performance, 1. [id number] Admission Performance, 1. [id number] Admission Performance, [id number] - Comments:, 1. [id number] Admission Performance, 1. LV2819E A dmission Performance, [id number] - Comments:, 1. NC7304C Admission Performance, 1. GT7986B Admission Per formance, [id number] - Comments:, [id number] - Comments:, IL1161I - Comments:, 1. [id number] Admission Perform ance, BT1684R - Comments:, UH2703G - Comments:, [id number] - Comments:, [id number] - Comments:, AC4720E - C omments:, AL6058N - Comments:, Q1. Does the patient use a wheelchair/scooter?, 1. TB0878X Admission P erformance, 1. PM8740L Admission Performance, RR1. Indicate the type of wheelchair/scooter used., Cod e, [id number] - Comments: were [electronically] signed by Akil Bearden on Sat Jun 04 2020 15:14:13 GM T-0600 (Central Standard Time)
[2020-06-04] MEDS: TAMSULOSIN 0.4 MG SR CAP PO SCH (20:14)
[2020-06-04] MEDS: MEGESTROL 40 MG TAB PO SCH (20:16)
[2020-06-04] MEDS: GABAPENTIN 100 MG CAP PO SCH (20:16)
[2020-06-04] MEDS: ATORVASTATIN 80 MG TAB PO SCH (20:16)
[2020-06-04] MEDS: JUVEN PACKET PO SCH (20:17)
[2020-06-04] MEDS: INSULIN GLARGINE 100 UNITS/ML SQ SCH (20:18)
[2020-06-05] MEDS: METOPROLOL XL 50 MG TAB PO SCH (05:02)
[2020-06-05] MEDS ORDERED: DOXAZOSIN 2 MG TAB ONE ×2 (07:22→19:21)
[2020-06-05] MEDS: ENOXAPARIN 40 MG/0.4 ML SQ SCH (07:29)
[2020-06-05] MEDS: PANTOPRAZOLE 40MG TABLET PO SCH (07:29)
[2020-06-05] MEDS: INSULIN -REGULAR HUMAN 50 UNIT/0.5 ML ML SQ SCH ×4 (07:30→21:00)
[2020-06-05] MEDS: DOXAZOSIN 4 MG TAB PO SCH ×2 (08:00→20:00)
[2020-06-05] MEDS: AMLODIPINE 10 MG TAB PO SCH (08:00)
[2020-06-05] MEDS: GLUCERNA SHAKE 237 ML CAN PO SCH ×3 (08:30→23:16)
[2020-06-05] MEDS: FE SULF/FA/VIT B COMP & C TAB PO SCH (08:45)
[2020-06-05] MEDS: CALCITONIN NASAL SPRAY 200 IU/DOSE NAS SCH (09:00)
[2020-06-05] MEDS: ONDANSETRON 4 MG (ODT) TAB PO PRN (09:18)
[2020-06-05] MEDS: TRAMADOL HCL 50 MG TAB PO PRN (09:18)
[2020-06-05] MEDS: LIDOCAINE 4% PATCH TOP SCH (09:19)
[2020-06-05] MEDS: VITAMIN D 5,000 UNIT CAP PO SCH (09:20)
[2020-06-05] MEDS: MEGESTROL 40 MG TAB PO SCH ×2 (09:20→21:17)
[2020-06-05] MEDS: ESCITALOPRAM 20 MG TAB PO SCH (09:20)
[2020-06-05] MEDS: GABAPENTIN 100 MG CAP PO SCH ×3 (09:20→21:17)
[2020-06-05] MEDS: FERROUS SULFATE 325 MG TAB PO SCH (09:21)
[2020-06-05] MEDS: CLOPIDOGREL 75 MG TABLET PO SCH (09:21)
[2020-06-05] MEDS: FUROSEMIDE 40 MG TABLET PO SCH (09:21)
[2020-06-05] MEDS: CALCITROL 0.25 MCG CAP PO SCH (09:22)
[2020-06-05] MEDS: HYDRALAZINE HCL 25 MG TABLET PO SCH ×3 (09:22→21:00)
[2020-06-05] MEDS: FOLIC ACID 1 MG TABLET PO SCH (09:23)
[2020-06-05 10:13] LABS: Absolute Lymphocytes (CBC) 1.1 K/uL (0.7-4.9); Basophils % 0.5 % (0-1.3); Hematocrit 31.5 % (39.6-49.0); Lymphocytes % 13.5 % (15.3-44.8); RBC Red Blood Cell Count 4.26 M/uL (4.33-5.43)
[2020-06-05 10:18] LABS: Potassium 3.8 mmol/L (3.5-5.1)
[2020-06-05] MEDS: JUVEN PACKET PO SCH ×2 (10:48→21:18)
[2020-06-05] MEDS: levoFLOXacin 250 MG TAB PO SCH (12:12)
[2020-06-05] MEDS ORDERED: FUROSEMIDE 20 MG TABLET PO SCH (17:00)
[2020-06-05] MEDS: BISACODYL 10 MG RECTAL SUPP PR PRN (17:29)
[2020-06-05] MEDS: IPRATROPIUM BROM 0.5MG/2.5ML NEB PRN (18:35)
[2020-06-05] MEDS: ALBUTEROL 2.5 MG/3 ML NEB SOL NEB PRN (18:35)
[2020-06-05] MEDS ORDERED: ATORVASTATIN 80 MG TAB ONE (20:13)
[2020-06-05] MEDS: INSULIN GLARGINE 100 UNITS/ML SQ SCH (21:17)
[2020-06-05] MEDS: DOCUSATE NA/SENNA CONC 1 TAB PO PRN (21:17)
[2020-06-05] MEDS: TAMSULOSIN 0.4 MG SR CAP PO SCH (21:17)
[2020-06-05] MEDS: ATORVASTATIN 80 MG TAB PO SCH (21:17)
[2020-06-06] MEDS: IPRATROPIUM BROM 0.5MG/2.5ML NEB PRN ×4 (00:55→19:40)
[2020-06-06] MEDS: ALBUTEROL 2.5 MG/3 ML NEB SOL NEB PRN ×4 (00:55→19:40)
--- NOTE | 2020-06-06 02:13 | FAST ---
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 Vel Murphy M.D. ADMISSION DIAGNOSIS: - Cardiac 09 - Cardiac Disorders () HEART FAILURE. EATING: Not assessed/no information CODE: - ORAL HYGIENE: Not assessed/no information CODE: - TOILETING HYGIENE: TOILETING HYGIENE - STEP 1: Does the patient complete the activity by him/herself with no assistance (physical, verbal/nonverbal cueing, setup/clean-up)? No. TOILETING HYGIENE - STEP 2: Does the patient need only setup/clean-up assistance from one helper? No. TOILETING HYGIENE - STEP 3: Does the patient need only verbal/nonverbal cueing or touching/steadying/contact guard assistance fro m one helper? No. TOILETING HYGIENE - STEP 4: Does the patient need physical assistance - for example lifting or trunk support from one helper - wi th the helper providing less than half of the effort? No. TOILETING HYGIENE - STEP 5: Does the patient need physical assistance - for example lifting or trunk support from one helper - wi th the helper providing more than half of the effort? No. TOILETING HYGIENE - STEP 6: Does the helper provide all of the effort? OR Is the assistance of two or more helpers required to co mplete the activity? Yes. 1. [id number] ADMISSION PERFORMANCE: Dependent CODE: 01 BATHING: Not assessed/no information CODE: - DRESSING - UPPER BODY: Not assessed/no information CODE: - DRESSING - LOWER BODY: Not assessed/no information CODE: - PUTTING ON/TAKING OFF FOOTWEAR: Not assessed/no information CODE: - ROLL LEFT AND RIGHT: ROLL LEFT AND RIGHT - STEP 1: Does the patient complete the activity by him/herself with no assistance (physical, verbal/nonverbal cueing, setup/clean-up)? No. ROLL LEFT AND RIGHT - STEP 2: Does the patient need only setup/clean-up assistance from one helper? No. ROLL LEFT AND RIGHT - STEP 3: Does the patient need only verbal/nonverbal cueing or touching/steadying/contact guard assistance fro m one helper? No. ROLL LEFT AND RIGHT - STEP 4: Does the patient need physical assistance - for example lifting or trunk support from one helper - wi th the helper providing less than half of the effort? Yes. 1. [id number] ADMISSION PERFORMANCE: Partial/moderate assistance CODE: 03 SIT TO LYING: Not assessed/no information CODE: - LYING TO SITTING: Not assessed/no information CODE: - SIT TO STAND: Not assessed/no information CODE: - TRANSFERS: BED, CHAIR: Not assessed/no information CODE: - TRANSFER TOILET: Not assessed/no information CODE: - TRANSFERS: CAR: Not assessed/no information CODE: - WALK 10 FEET: Not assessed/no information CODE: - 1 STEP (CURB): Not assessed/no information CODE: - PICKING UP OBJECT: Not assessed/no information CODE: - DOES THE PATIENT USE A WHEELCHAIR/SCOOTER? CODE: EXPR WHEEL 50 FEET WITH TWO TURNS: Not assessed/no information CODE: - INDICATE THE TYPE OF WHEELCHAIR/SCOOTER USED: CODE: EXPR WHEEL 150 FEET: Not assessed/no information CODE: - INDICATE THE TYPE OF WHEELCHAIR/SCOOTER USED: CODE: EXPR BLADDER AND BOWEL: H350. BLADDER CONTINENCE (3-DAY ASSESSMENT PERIOD): Not applicable (e.g., indwelling catheter) CODE: 9 H400. BOWEL CONTINENCE (3-DAY ASSESSMENT PERIOD): Always continent CODE: 0
[2020-06-06] MEDS: METOPROLOL XL 50 MG TAB PO SCH (05:14)
[2020-06-06] MEDS: PANTOPRAZOLE 40MG TABLET PO SCH (06:36)
[2020-06-06] MEDS: ENOXAPARIN 40 MG/0.4 ML SQ SCH (07:40)
[2020-06-06] MEDS ORDERED: DOXAZOSIN 2 MG TAB ONE ×2 (07:41→19:55)
[2020-06-06] MEDS: POLYVINYL ALCOHOL 1.4% 15 ML EACH EYE PRN (07:57)
[2020-06-06] MEDS: JUVEN PACKET PO SCH ×2 (07:58→20:06)
[2020-06-06] MEDS: INSULIN -REGULAR HUMAN 50 UNIT/0.5 ML ML SQ SCH ×4 (07:58→20:07)
[2020-06-06] MEDS: GLUCERNA SHAKE 237 ML CAN PO SCH ×3 (07:58→20:06)
[2020-06-06] MEDS: levoFLOXacin 250 MG TAB PO SCH (07:59)
[2020-06-06] MEDS: LIDOCAINE 4% PATCH TOP SCH (08:00)
[2020-06-06] MEDS: DOCUSATE NA 100 MG CAP PO SCH (08:00)
[2020-06-06] MEDS: CALCITONIN NASAL SPRAY 200 IU/DOSE NAS SCH (08:00)
[2020-06-06] MEDS: AMLODIPINE 10 MG TAB PO SCH (08:02)
[2020-06-06] MEDS: HYDRALAZINE HCL 25 MG TABLET PO SCH ×3 (08:03→20:05)
[2020-06-06] MEDS: DOXAZOSIN 4 MG TAB PO SCH ×2 (08:04→20:06)
[2020-06-06] MEDS: FERROUS SULFATE 325 MG TAB PO SCH (08:05)
[2020-06-06] MEDS: CLOPIDOGREL 75 MG TABLET PO SCH (08:05)
[2020-06-06] MEDS: ESCITALOPRAM 20 MG TAB PO SCH (08:05)
[2020-06-06] MEDS: GABAPENTIN 100 MG CAP PO SCH ×3 (08:05→20:05)
[2020-06-06] MEDS: FOLIC ACID 1 MG TABLET PO SCH (08:05)
[2020-06-06] MEDS: CALCITROL 0.25 MCG CAP PO SCH (08:05)
[2020-06-06] MEDS: MEGESTROL 40 MG TAB PO SCH ×2 (08:05→20:04)
[2020-06-06] MEDS: TRAMADOL HCL 50 MG TAB PO PRN ×3 (08:06→20:10)
[2020-06-06] MEDS: FE SULF/FA/VIT B COMP & C TAB PO SCH (08:09)
[2020-06-06] MEDS: VITAMIN D 5,000 UNIT CAP PO SCH (08:09)
--- NOTE | 2020-06-06 08:37 | RAD REPORT ---
EXAM DESCRIPTION: RAD - Chest Single View - 06/06/2020 7:53 am CLINICAL HISTORY: increase coughing Chest pain. COMPARISON: Abdomen 1 View (KUB) dated 05/28/2020; Abdomen 1 View (KUB) dated 05/26/2020; Chest Sing le View dated 05/26/2020; Chest Single View dated 05/24/2020 FINDINGS: Portable technique limits examination quality. Prominent emphysematous changes are seen throughout the lungs. The heart is moderately enlarged with sternotomy wires present. No displaced fractures. IMPRESSION: COPD.
[2020-06-06] MEDS: FUROSEMIDE 20 MG TABLET PO SCH ×2 (09:00→17:00)
[2020-06-06] MEDS: ACETAMINOPHEN 500 MG TAB PO PRN (09:57)
[2020-06-06] MEDS: TAMSULOSIN 0.4 MG SR CAP PO SCH (20:04)
[2020-06-06] MEDS: ATORVASTATIN 80 MG TAB PO SCH (20:05)
[2020-06-06] MEDS: INSULIN GLARGINE 100 UNITS/ML SQ SCH (20:08)
[2020-06-07] MEDS: ALBUTEROL 2.5 MG/3 ML NEB SOL NEB PRN ×2 (01:05→08:35)
[2020-06-07] MEDS: IPRATROPIUM BROM 0.5MG/2.5ML NEB PRN ×2 (01:05→08:35)
[2020-06-07] MEDS: METOPROLOL XL 50 MG TAB PO SCH (04:24)
[2020-06-07] MEDS: PANTOPRAZOLE 40MG TABLET PO SCH (06:34)
[2020-06-07] MEDS: ENOXAPARIN 40 MG/0.4 ML SQ SCH (07:03)
[2020-06-07] MEDS: POLYVINYL ALCOHOL 1.4% 15 ML EACH EYE PRN (07:03)
[2020-06-07] MEDS: CALCITONIN NASAL SPRAY 200 IU/DOSE NAS SCH (07:04)
[2020-06-07] MEDS ORDERED: DOXAZOSIN 2 MG TAB ONE ×2 (07:08→19:49)
[2020-06-07] MEDS: INSULIN -REGULAR HUMAN 50 UNIT/0.5 ML ML SQ SCH ×4 (07:30→21:00)
[2020-06-07] MEDS: LIDOCAINE 4% PATCH TOP SCH (08:00)
[2020-06-07] MEDS: TRAMADOL HCL 50 MG TAB PO PRN ×3 (08:29→19:41)
[2020-06-07] MEDS: ESCITALOPRAM 20 MG TAB PO SCH (08:30)
[2020-06-07] MEDS: AMLODIPINE 10 MG TAB PO SCH (08:30)
[2020-06-07] MEDS: HYDRALAZINE HCL 25 MG TABLET PO SCH ×3 (08:31→19:45)
[2020-06-07] MEDS: FERROUS SULFATE 325 MG TAB PO SCH (08:32)
[2020-06-07] MEDS: DOXAZOSIN 4 MG TAB PO SCH ×2 (08:33→19:43)
[2020-06-07] MEDS: CALCITROL 0.25 MCG CAP PO SCH (08:34)
[2020-06-07] MEDS: FUROSEMIDE 20 MG TABLET PO SCH ×2 (08:34→16:48)
[2020-06-07] MEDS: MEGESTROL 40 MG TAB PO SCH ×2 (08:34→19:44)
[2020-06-07] MEDS: FOLIC ACID 1 MG TABLET PO SCH (08:34)
[2020-06-07] MEDS: DOCUSATE NA 100 MG CAP PO SCH (08:34)
[2020-06-07] MEDS: VITAMIN D 5,000 UNIT CAP PO SCH (08:34)
[2020-06-07] MEDS: CLOPIDOGREL 75 MG TABLET PO SCH (08:34)
[2020-06-07] MEDS: GLUCERNA SHAKE 237 ML CAN PO SCH ×3 (08:35→19:44)
[2020-06-07] MEDS: JUVEN PACKET PO SCH ×2 (08:35→19:44)
[2020-06-07] MEDS: FE SULF/FA/VIT B COMP & C TAB PO SCH (08:36)
[2020-06-07] MEDS: GABAPENTIN 100 MG CAP PO SCH ×3 (08:36→19:41)
[2020-06-07] MEDS: ATORVASTATIN 80 MG TAB PO SCH (19:41)
[2020-06-07] MEDS: TAMSULOSIN 0.4 MG SR CAP PO SCH (19:44)
[2020-06-07] MEDS: TRAZODONE 50 MG TABLET PO PRN (19:44)
[2020-06-07] MEDS: INSULIN GLARGINE 100 UNITS/ML SQ SCH (19:45)
[2020-06-08] MEDS: ALBUTEROL 2.5 MG/3 ML NEB SOL NEB PRN ×2 (02:45→19:35)
[2020-06-08] MEDS: IPRATROPIUM BROM 0.5MG/2.5ML NEB PRN ×2 (02:45→19:35)
[2020-06-08] MEDS: METOPROLOL XL 50 MG TAB PO SCH (05:06)
[2020-06-08] MEDS: PANTOPRAZOLE 40MG TABLET PO SCH (06:51)
[2020-06-08] MEDS: INSULIN -REGULAR HUMAN 50 UNIT/0.5 ML ML SQ SCH ×4 (07:30→20:31)
[2020-06-08] MEDS: FE SULF/FA/VIT B COMP & C TAB PO SCH (08:00)
[2020-06-08] MEDS: AMLODIPINE 10 MG TAB PO SCH (08:00)
[2020-06-08] MEDS: LIDOCAINE 4% PATCH TOP SCH ×2 (08:00→10:14)
[2020-06-08] MEDS: DOXAZOSIN 4 MG TAB PO SCH ×2 (08:00→20:29)
[2020-06-08] MEDS: CALCITONIN NASAL SPRAY 200 IU/DOSE NAS SCH (08:27)
[2020-06-08] MEDS: ENOXAPARIN 40 MG/0.4 ML SQ SCH (08:28)
[2020-06-08] MEDS: GABAPENTIN 100 MG CAP PO SCH ×3 (08:28→20:31)
[2020-06-08] MEDS: MEGESTROL 40 MG TAB PO SCH ×2 (08:29→20:30)
[2020-06-08] MEDS: CLOPIDOGREL 75 MG TABLET PO SCH (08:29)
[2020-06-08] MEDS: ONDANSETRON 4 MG (ODT) TAB PO PRN (08:29)
[2020-06-08] MEDS: DOCUSATE NA 100 MG CAP PO SCH (08:29)
[2020-06-08] MEDS: ESCITALOPRAM 20 MG TAB PO SCH (08:29)
[2020-06-08] MEDS: VITAMIN D 5,000 UNIT CAP PO SCH (08:29)
[2020-06-08] MEDS: CALCITROL 0.25 MCG CAP PO SCH (08:30)
[2020-06-08] MEDS: FUROSEMIDE 20 MG TABLET PO SCH ×2 (08:30→16:18)
[2020-06-08] MEDS: FOLIC ACID 1 MG TABLET PO SCH (08:34)
[2020-06-08] MEDS: TRAMADOL HCL 50 MG TAB PO PRN (08:34)
[2020-06-08] MEDS: FERROUS SULFATE 325 MG TAB PO SCH (08:34)
[2020-06-08] MEDS: HYDRALAZINE HCL 25 MG TABLET PO SCH ×2 (09:00→20:30)
[2020-06-08] MEDS: ACETAMINOPHEN 500 MG TAB PO PRN (10:14)
[2020-06-08] MEDS ORDERED: HYDRALAZINE HCL 25 MG TABLET PO SCH (10:41)
[2020-06-08] MEDS: JUVEN PACKET PO SCH ×2 (10:42→20:30)
[2020-06-08] MEDS: GLUCERNA SHAKE 237 ML CAN PO SCH ×2 (10:43→20:30)
--- NOTE | 2020-06-08 15:49 | R.PN ---
PROGRESS NOTES ENCOUNTER DATE AND TIME: 06/08/2020 15:40 (BOX ICER) NAME NAT RODRIGUEZ DATE OF : 1955 DATE OF ADMISSION: 06/03/2020 17:40 (BOX ICER) HEART FAILURECHIEF COMPLAINT: Systolic heart failure, debility. SUBJECTIVE: Pt denied any depression. Pt denied any Shortness of Breath. WBC 7.8, Hgb 10.1, Rail Operations Controller 1.74, glucose 133 to 147. Self propelled wheelchair 100' with minimum assistance. VITAL SIGNS Temperature: 97.7 F SBP/DBP: 116/60 Pulse: 65 Resp: 16 MEDICATION ALLERGIES: No Known Drug Allergies (NKDA) ENVIRONMENTAL ALLERGIES: - Substance Allergies None Known - Other Allergies None Known NURSING: - Shower allowing shower ACTIVITIES OOB only with supervision THERAPIES: - Dietary and Nutrition Adequate Nutrition. Nutritional Education. Nutritional Supplements. PHYSICAL EXAM - Gen Alert and awake Lying in bed No apparent distress Oriented to: person, time, and place - Skin No skin breakdown. Normacephalic - Eyes No abnormalities - ENMT No abnormalities - Neck No abnormalities No cervical adenopathy - CVS RRR - Chest No abnormalities - Resp No wheezing - Abd Soft - GI Non distended Deferred - No abnormalities - Ext No significant edema - MSK 4+/5 weakness in both lower extremities. - Neuro No focal deficits - Psych No abnormalities ASSESSMENT: Pt. is a 65 yo Right-handed male of unknown race.On 05/17/2020 he was admitted to [facility] with diagnosis HEART FAILURE.His impairment category is Cardiac 09 - Cardiac Disorders (09).Pre -morbidly, Pt. was independent/mod-I in Locomotion, Social Cognition, Self-Care, and Communication; a nd he had good Balance, Transfers Control, and Sphincter Control.Currently, he has deficits of Safety Awareness, Social Cognition, Transfers Control, Sphincter Control, Self-Care, Communication, and End urance.Pt. is now referred to [facility] for acute in-patient rehabilitation i n order to maximize patient's functional independence in activities of daily living, strength, ROM, a nd mobility.- Rehab Goal Patient has realistic goal of being discharged at assistance level Dago-to-sup to reside at Home with Family/Relatives. MDM/PLAN: - Physical Therapy Gait dysfunction - to improve, our physical therapists will perform initial evaluation of pt's statu s upon admission and devise an individualized program for Gait Training, and Wheel Chair mobility Inability to transfer - to improve, our physical therapists will perform initial evaluation of pt's status upon admission and devise an individualized program for Bed mobility Need for home safety evaluation - to improve, our physical therapists will perform initial evaluatio n of pt's status upon admission and devise an individualized program for Home Evaluation Need in caregiver upon discharge - to improve, our physical therapists will perform initial evaluati on of pt's status upon admission and devise an individualized program for Caregiver Training Edema - to improve, our physical therapists will perform initial evaluation of pt's status upon admis ally and devise an individualized program for Elevation Training, and Lymphedema Therapy New precaution - to improve, our physical therapists will perform initial evaluation of pt's status upon admission and devise an individualized program for Patient precaution education Poor endurance - to improve, our physical therapists will perform initial evaluation of pt's status upon admission and devise an individualized program for Endurance Training Weakness - to improve, our physical therapists will perform initial evaluation of pt's status upon a dmission and devise an individualized program for Aquatic Therapy, Neuromuscular Reeducation, and Str engthening Achieving independence - to improve, our physical therapists will perform initial evaluation of pt's status upon admission and devise an individualized program for Community Reintegration Activities - Occupational Therapy ADL deficits - to improve, our occupation therapists will perform initial evaluation of pt's status upon admission and devise an individualized program for Bathing, Bed mobility, Community Reintegratio n, Cooking, Dressing, Eating, Fine Motor Skills, Grooming, Homemaking, Kitchen Mobility, Laundry, Pat ient Education, Safety Awareness, Splinting - Positioning, Transfers(Toilet, Tub, Shower), and Wheel Chair Management Cognitive deficits - to improve, our occupation therapists will perform initial evaluation of pt's s tatus upon admission and devise an individualized program for Cognition - orientation Need for care professional - to improve, our occupation therapists will perform initial evaluation of pt's status upon admission and devise an individualized program for Caregiver Training Weakness - to improve, our occupation therapists will perform initial evaluation of pt's status upon admission and devise an individualized program for Aquatic Therapy, Balance, Endurance, UE ROM, and UE strengthening - Other See attached MAR (Medication Administration Record) - Diet Type Continue Regular - Diet - Liquid Texture Continue Regular - Tube Feed Continue N/A - Diet - Solid Texture Continue Regular - Shower allowing shower FUNCTIONAL STATUS: UPDATED AT WEEKLY TEAM CONFERENCE - Bladder Same accident frequency: 7-Ind - No accidents in the past 7 days - Bowel Same accident frequency: 7-Ind - No accidents in the past 7 days - Walking Same score based on distance walked: 0(N/A) - Wheelchair Same score based on distance traveled: 0(N/A) FUNCTIONAL STATUS: - Self-Care A. Eating Ind B. Grooming Dago C. Bathing Dago D. Dressing - Upper sup E. Dressing - Lower Bakari F. Toileting sup - Sphincter Control G. Bladder control Dago H. Bowel control Dago - Transfers Control I. Bed/Chair/Wheelchair sup J. Toilet sup K. Tub/Shower Bakari - Locomotion L. Walk/Wheelchair (B) sup M. Stairs ADNO - Communication N. Comprehension (B) Dago O. Expression (B) Dago - Social Cognition P. Social Interaction Dago Q. Problem Solving Dago R. Memory Dago - Endurance Good - Balance Fair - Safety Awareness Good QI SCORES: - Self-Care A. Eating 03-Partial/moderate assistance B. Oral hygiene 03-Partial/moderate assistance C. Toileting hygiene 02-Substantial/maximal assistance E. Shower/bathe self 02-Substantial/maximal assistance F. Upper body dressing 02-Substantial/maximal assistance G. Lower body dressing 02-Substantial/maximal assistance H. Putting on/taking off footwear 88-Not attempted due to medical condition or safety concerns - Mobility A. Roll left and right 03-Partial/moderate assistance B. Sit to lying 03-Partial/moderate assistance C. Lying to sitting on side of bed 02-Substantial/maximal assistance D. Sit to stand 02-Substantial/maximal assistance E. Chair/[id number] transfer 02-Substantial/maximal assistance F. Toilet transfer 02-Substantial/maximal assistance G. Car transfer 88-Not attempted due to medical condition or safety concerns I. Walk 10 feet 02-Substantial/maximal assistance J. Walk 50 feet with two turns 88-Not attempted due to medical condition or safety concerns K. Walk 150 feet 88-Not attempted due to medical condition or safety concerns L. Walking 10 feet on uneven surfaces 88-Not attempted due to medical condition or safety concerns M. 1 step (curb) 88-Not attempted due to medical condition or safety concerns N. 4 steps 88-Not attempted due to medical condition or safety concerns O. 12 steps 88-Not attempted due to medical condition or safety concerns P. Picking up object 88-Not attempted due to medical condition or safety concerns R. Wheel 50 feet with two turns 88-Not attempted due to medical condition or safety concerns S. Wheel 150 feet 88-Not attempted due to medical condition or safety concerns - Bladder and Bowel Bladder continence Bowel continence - Endurance Fair - Balance Poor - Safety Awareness Poor CURRENT FUNC. DEFICITS: Self-Care, Mobility, Endurance, Balance, and Safety Awareness SIGNATURE PANEL: (BOX ICER)
[2020-06-08] MEDS ORDERED: DOXAZOSIN 2 MG TAB ONE (19:13)
[2020-06-08] MEDS: ATORVASTATIN 80 MG TAB PO SCH (20:27)
[2020-06-08] MEDS: TAMSULOSIN 0.4 MG SR CAP PO SCH (20:30)
[2020-06-08] MEDS: INSULIN GLARGINE 100 UNITS/ML SQ SCH (20:30)
[2020-06-09] MEDS: ONDANSETRON 4 MG (ODT) TAB PO PRN ×3 (00:01→18:32)
[2020-06-09] MEDS: IPRATROPIUM BROM 0.5MG/2.5ML NEB PRN ×3 (01:10→13:52)
[2020-06-09] MEDS: ALBUTEROL 2.5 MG/3 ML NEB SOL NEB PRN ×3 (01:10→13:52)
[2020-06-09] MEDS: METOPROLOL XL 50 MG TAB PO SCH (05:08)
[2020-06-09 06:17] LABS: Absolute Lymphocytes (CBC) 1.4 K/uL (0.7-4.9); Basophils % 0.5 % (0-1.3); Hematocrit 26.5 % (39.6-49.0); Lymphocytes % 16.6 % (15.3-44.8); MPV 10.5 fL (7.6-11.3); RBC Red Blood Cell Count 3.63 M/uL (4.33-5.43)
[2020-06-09] MEDS: PANTOPRAZOLE 40MG TABLET PO SCH (06:19)
[2020-06-09] MEDS: TRAMADOL HCL 50 MG TAB PO PRN (06:23)
[2020-06-09 06:43] LABS: Albumin 2.1 g/dL (3.4-5.0); Magnesium 2.4 mg/dL (1.8-2.4); Prealbumin 19.1 mg/dL (20-40)
[2020-06-09] MEDS: LIDOCAINE 4% PATCH TOP SCH (06:49)
[2020-06-09] MEDS ORDERED: SOD POLYSTYREN SUL 15 GM/60 ML UCUP PO ONE (07:05)
[2020-06-09] MEDS: INSULIN -REGULAR HUMAN 50 UNIT/0.5 ML ML SQ SCH ×4 (07:30→21:00)
[2020-06-09 07:55] LABS: Potassium 4.9 mmol/L (3.5-5.1)
[2020-06-09] MEDS: DOXAZOSIN 4 MG TAB PO SCH ×2 (08:00→20:00)
[2020-06-09] MEDS: AMLODIPINE 5 MG TAB PO SCH (08:00)
[2020-06-09] MEDS: GLUCERNA SHAKE 237 ML CAN PO SCH ×2 (09:00→21:02)
[2020-06-09] MEDS: JUVEN PACKET PO SCH ×2 (09:00→21:02)
[2020-06-09] MEDS: GABAPENTIN 100 MG CAP PO SCH ×3 (09:13→21:00)
[2020-06-09] MEDS: ENOXAPARIN 40 MG/0.4 ML SQ SCH (09:13)
[2020-06-09] MEDS: FUROSEMIDE 20 MG TABLET PO SCH ×2 (09:14→17:19)
[2020-06-09] MEDS: DOCUSATE NA 100 MG CAP PO SCH (09:14)
[2020-06-09] MEDS: FOLIC ACID 1 MG TABLET PO SCH (09:14)
[2020-06-09] MEDS: CALCITROL 0.25 MCG CAP PO SCH (09:14)
[2020-06-09] MEDS: VITAMIN D 5,000 UNIT CAP PO SCH (09:14)
[2020-06-09] MEDS: ESCITALOPRAM 20 MG TAB PO SCH (09:15)
[2020-06-09] MEDS: CLOPIDOGREL 75 MG TABLET PO SCH (09:15)
[2020-06-09] MEDS: HYDRALAZINE HCL 25 MG TABLET PO SCH ×2 (09:15→21:00)
[2020-06-09] MEDS: FERROUS SULFATE 325 MG TAB PO SCH (09:16)
[2020-06-09] MEDS: MEGESTROL 40 MG TAB PO SCH ×2 (09:16→21:00)
[2020-06-09] MEDS: FE SULF/FA/VIT B COMP & C TAB PO SCH (09:16)
[2020-06-09] MEDS: CALCITONIN NASAL SPRAY 200 IU/DOSE NAS SCH (11:12)
[2020-06-09] MEDS: POLYVINYL ALCOHOL 1.4% 15 ML EACH EYE PRN (18:32)
[2020-06-09] MEDS: ATORVASTATIN 80 MG TAB PO SCH (21:00)
[2020-06-09] MEDS: TAMSULOSIN 0.4 MG SR CAP PO SCH (21:00)
[2020-06-09] MEDS: INSULIN GLARGINE 100 UNITS/ML SQ SCH (21:00)
[2020-06-09] MEDS: TRAZODONE 50 MG TABLET PO PRN (21:07)
[2020-06-10] MEDS: METOPROLOL XL 50 MG TAB PO SCH (05:07)
[2020-06-10] MEDS: PANTOPRAZOLE 40MG TABLET PO SCH (07:01)
[2020-06-10] MEDS: ONDANSETRON 4 MG (ODT) TAB PO PRN (07:01)
[2020-06-10] MEDS: INSULIN -REGULAR HUMAN 50 UNIT/0.5 ML ML SQ SCH ×4 (07:08→21:00)
[2020-06-10] MEDS: HYDRALAZINE HCL 25 MG TABLET PO SCH ×2 (08:00→21:00)
[2020-06-10] MEDS: AMLODIPINE 5 MG TAB PO SCH (08:00)
[2020-06-10] MEDS: DOXAZOSIN 4 MG TAB PO SCH (08:00)
[2020-06-10] MEDS: IPRATROPIUM BROM 0.5MG/2.5ML NEB PRN ×2 (08:30→13:25)
[2020-06-10] MEDS: ALBUTEROL 2.5 MG/3 ML NEB SOL NEB PRN ×2 (08:30→13:25)
[2020-06-10] MEDS: CALCITROL 0.25 MCG CAP PO SCH (09:07)
[2020-06-10] MEDS: VITAMIN D 5,000 UNIT CAP PO SCH (09:07)
[2020-06-10] MEDS: ENOXAPARIN 40 MG/0.4 ML SQ SCH (09:07)
[2020-06-10] MEDS: MEGESTROL 40 MG TAB PO SCH ×2 (09:08→21:00)
[2020-06-10] MEDS: FUROSEMIDE 20 MG TABLET PO SCH ×2 (09:08→17:18)
[2020-06-10] MEDS: ESCITALOPRAM 20 MG TAB PO SCH (09:08)
[2020-06-10] MEDS: CLOPIDOGREL 75 MG TABLET PO SCH (09:08)
[2020-06-10] MEDS: DOCUSATE NA 100 MG CAP PO SCH (09:09)
[2020-06-10] MEDS: GABAPENTIN 100 MG CAP PO SCH ×3 (09:09→21:00)
[2020-06-10] MEDS: FERROUS SULFATE 325 MG TAB PO SCH (09:09)
[2020-06-10] MEDS: FOLIC ACID 1 MG TABLET PO SCH (09:09)
[2020-06-10] MEDS: TRAMADOL HCL 50 MG TAB PO PRN (09:10)
[2020-06-10] MEDS: FE SULF/FA/VIT B COMP & C TAB PO SCH (09:10)
--- NOTE | 2020-06-10 10:17 | P.RH.PN ---
Estimated Length of Stay: 14 Expected Discharge Date: 06/16/20 Discharge Disposition Plan: Home Family Support: Yes Shelter Goal: Mobility, Transfers, Self Care Vital Signs: Last Vital Signs Temp 97.6 F 06/10/20 07:27 Pulse 64 06/10/20 09:08 Resp 16 06/10/20 09:10 BP 146/64 H 06/10/20 09:08 Pulse Ox 98 06/10/20 09:10 Laboratory: Laboratory Last Values WBC 8.3 K/uL (4.3-10.9) 06/09/20 05:36 RBC 3.63 M/uL (4.33-5.43) L 06/09/20 05:36 Hgb 8.8 g/dL (13.6-17.9) L 06/09/20 05:36 Hct 26.5 % (39.6-49.0) L D 06/09/20 05:36 MCV 73.0 fL (80-100) L 06/09/20 05:36 MCH 24.1 pg (27.0-35.0) L 06/09/20 05:36 MCHC 33.1 g/dL (32.0-36.0) 06/09/20 05:36 RDW 24.4 % (12.1-15.2) H 06/09/20 05:36 Plt Count 171 K/uL (152-406) 06/09/20 05:36 MPV 10.5 fL (7.6-11.3) 06/09/20 05:36 Neutrophils % 69.8 % (41.7-73.7) 06/09/20 05:36 Lymphocytes % 16.6 % (15.3-44.8) 06/09/20 05:36 Monocytes % 10.0 % (3.3-12.3) 06/09/20 05:36 Eosinophils % 3.1 % (0-4.4) 06/09/20 05:36 Basophils % 0.5 % (0-1.3) 06/09/20 05:36 Absolute Neutrophils 5.8 K/uL (1.8-8.0) 06/09/20 05:36 Absolute Lymphocytes 1.4 K/uL (0.7-4.9) 06/09/20 05:36 Absolute Monocytes 0.8 K/uL (0.1-1.3) 06/09/20 05:36 Absolute Eosinophils 0.3 K/uL (0-0.5) 06/09/20 05:36 Absolute Basophils 0.0 K/uL (0-0.5) 06/09/20 05:36 Platelet Estimate Adeq 06/04/20 06:00 Anisocytosis 2+ 06/04/20 06:00 Asha Cells 1+ 06/04/20 06:00 Schistocytes 1+ 06/04/20 06:00 Morphology Comment Noted (NOT SEEN) 06/04/20 06:00 Sodium 138 mmol/L (136-145) 06/09/20 07:23 Potassium 4.9 mmol/L (3.5-5.1) 06/09/20 07:23 Chloride 104 mmol/L (98-107) 06/09/20 07:23 Carbon Dioxide 29 mmol/L (21-32) 06/09/20 07:23 BUN 44 mg/dL (7-18) H 06/09/20 07:23 Creatinine 1.65 mg/dL (0.55-1.3) H 06/09/20 07:23 Estimated GFR 42 mL/min (=/>90) L 06/09/20 07:23 Glucose 104 mg/dL (74-106) 06/09/20 07:23 POC Glucose 108 mg/dL (65-120) 06/10/20 06:41 Calcium 8.7 mg/dL (8.5-10.1) 06/09/20 07:23 Magnesium 2.4 mg/dL (1.8-2.4) 06/09/20 05:36 Albumin 2.1 g/dL (3.4-5.0) L 06/09/20 05:36 Prealbumin 19.1 mg/dL (20-40) L 06/09/20 05:36 Urine Color Yellow 06/04/20 00:01 Urine Appearance Clear 06/04/20 00:01 Urine pH 6.0 (5.0-7.0) 06/04/20 00:01 Ur Specific [place] 1.015 (1.005-1.030) 06/04/20 00:01 Glucose (UA)(Auto) 1+ (NEG) H 06/04/20 00:01 Urine Ketones Negative (NEG) 06/04/20 00:01 Urine Blood Negative (NEG) 06/04/20 00:01 Urine Nitrite Negative (NEG) 06/04/20 00:01 Urine Bilirubin Negative (NEG) 06/04/20 00:01 Urine Urobilinogen 0.2 mg/dL (0.2-1.0) 06/04/20 00:01 Ur Leukocyte Esterase Negative (NEG) 06/04/20 00:01 Urine RBC <5 /HPF (NONE SEEN) 06/04/20 00:01 Urine WBC <5 /HPF (<5) 06/04/20 00:01 Ur Squamous Epith Cells <5 /HPF (NONE SEEN) 06/04/20 00:01 Urine Bacteria 20-50 /HPF (NONE SEEN) H 06/04/20 00:01 Hyaline Casts 0-5 /LPF (NONE SEEN) 06/04/20 00:01 Fine Granular Casts Few /LPF (NONE SEEN) 06/04/20 00:01 Urine Mucus 1+ /HPF (NONE SEEN) 06/04/20 00:01 Urine Culture Reflexed Not needed 06/04/20 00:01 Urine Total Protein 3+ (NEG) H 06/04/20 00:01 SARS-CoV-2 RNA (RT-PCR) Negative (NEGATIVE) 06/04/20 07:48 Smear Scan Ok (OK) 06/04/20 06:00 Weight: 160 lb Wound Present: No Closed Surgical Incision Present: No Negative Pressure Wound Therapy Present: No Physician Update: Labs reviewed and are stable. His only walking 15' with contact guard assistance with moderate pain. He is making fair progress with occupational therapy. 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 Please see the Rehabilitation Signature page for all necessary signatures.
[2020-06-10] MEDS: ACETAMINOPHEN 500 MG TAB PO PRN (11:03)
[2020-06-10] MEDS: GLUCERNA SHAKE 237 ML CAN PO SCH ×2 (11:06→21:03)
[2020-06-10] MEDS: CALCITONIN NASAL SPRAY 200 IU/DOSE NAS SCH (11:06)
[2020-06-10] MEDS: JUVEN PACKET PO SCH ×2 (11:06→20:00)
[2020-06-10] MEDS: LIDOCAINE 4% PATCH TOP SCH (12:54)
[2020-06-10] MEDS: BISACODYL 10 MG RECTAL SUPP PR PRN (14:58)
--- NOTE | 2020-06-10 16:04 | CON ---
Date of Consultation: 06/10/2020 Reason For Consult: Chronic renal insufficiency. History Of Present Illness: Mr. Anderson is a 65-year-old male with past medical history significant for history of congestive heart failure, admitted to [facility] earlier this sat because of syncope secondary to bradycardia. He has history of coronary bypass surgery, left lung base pneumonia, urinary retention, and chronic kidney disease stage 3. He also has a T12 and L3 com pression fractures. He has been transferred over to the rehab floor for rehabilitation and pain [facility] as well. The patient has been having difficult time with urinary retention and a catheter had to be placed back in because of inability to urinate. Other than that, he denies any acute issues. Past Medical History: Significant for history of coronary artery bypass grafting; coronary artery di sease; seizures; anemia; GERD; diabetes; hyperlipidemia; COPD; history of pleural effusion, status po st thoracentesis. Surgical History: Significant for history of bypass grafting and thoracentesis done recently. Family History: Noncontributory. Review of Systems: Positive for back pain and urinary retention, but otherwise denies any chest pain or shortness of cristela ath at rest at this time. Denies any paroxysmal nocturnal dyspnea either. Physical Examination: Vital signs: At this time are showing temperature of 97.6, pulse rate of 65, respiratory rate of 16, and blood pressure 146/64. General: He appears in no acute distress. HEENT: Atraumatic head. Lungs: Clear to auscultation. Abdomen: Soft and nontender. Holcomb catheter in place. Extremities: Showed no evidence of edema. Laboratory Data: At this time are showing sodium of 138, potassium of 4.9, chloride of 104, BUN of 4 4 and creatinine of 1.65, which is overall stable. CBC showing anemia with a hemoglobin of 8.8, chente tocrit of 26.5, and platelet count of 171. Current Medications: Include Tylenol p.r.n., amlodipine 5 mg a day, calcitriol, vitamin D, Plavix, d oxazosin 4 mg b.i.d., Lasix 20 mg p.o. b.i.d., hydralazine 25 mg b.i.d., gabapentin 100 mg 3 times a day, insulin 5 units at bedtime, lactulose, lidocaine patch, megestrol 40 mg b.i.d., pantoprazole, ta msulosin, trazodone, and tramadol. Impression: 1.Acute on chronic renal insufficiency, currently secondary to underlying cardiorenal syndrome, curr ently with overall stable renal function. 2.Bradycardia secondary to beta virgilio use. Currently with stable heart rate. Holding off on any further beta blockers at this time. 3.Hypertension. The patient is on multiple medications including doxazosin and hydralazine as well as amlodipine. His blood pressure seems to be running on the lower side, hence I will discontinue th e doxazosin and monitor his blood pressures closely. 4.Anemia secondary to chronic disease. Continue to monitor. 5.Debility and weakness, undergoing physical therapy. 6.Lumbar compression fractures, on pain management with Dilaudid and Lidoderm patch. 7.Anorexia, on megestrol. Plan: Overall, the patient's renal function is stable. We are concerned about urinary retention. T he patient is on tamsulosin at bedtime. We will discontinue the doxazosin and add finasteride and mo nitor him closely. The patient is on multiple other medications, which seems to be stable and his vo lume status also seems to be stable. We will continue to monitor his labs and his urine output and g pau him a voiding trial later on. ETHEL/ERLIN Voice ID: [id number] Report ID: [id number]
[2020-06-10] MEDS: FINASTERIDE 5 MG TAB PO SCH (21:00)
[2020-06-10] MEDS: TAMSULOSIN 0.4 MG SR CAP PO SCH (21:00)
[2020-06-10] MEDS: INSULIN GLARGINE 100 UNITS/ML SQ SCH (21:00)
[2020-06-10] MEDS: ATORVASTATIN 80 MG TAB PO SCH (21:00)
[2020-06-11] MEDS: METOPROLOL XL 50 MG TAB PO SCH (05:13)
[2020-06-11] MEDS: PANTOPRAZOLE 40MG TABLET PO SCH (06:52)
[2020-06-11] MEDS: INSULIN -REGULAR HUMAN 50 UNIT/0.5 ML ML SQ SCH ×4 (07:30→20:50)
[2020-06-11] MEDS: JUVEN PACKET PO SCH ×2 (08:00→20:00)
[2020-06-11] MEDS: LIDOCAINE 4% PATCH TOP SCH (08:19)
[2020-06-11] MEDS: POLYVINYL ALCOHOL 1.4% 15 ML EACH EYE PRN (08:20)
[2020-06-11] MEDS: ENOXAPARIN 40 MG/0.4 ML SQ SCH (08:20)
[2020-06-11] MEDS: CALCITONIN NASAL SPRAY 200 IU/DOSE NAS SCH (08:21)
[2020-06-11] MEDS: TRAMADOL HCL 50 MG TAB PO PRN (08:22)
[2020-06-11] MEDS: VITAMIN D 5,000 UNIT CAP PO SCH (08:22)
[2020-06-11] MEDS: CLOPIDOGREL 75 MG TABLET PO SCH (08:23)
[2020-06-11] MEDS: GABAPENTIN 100 MG CAP PO SCH ×3 (08:23→20:48)
[2020-06-11] MEDS: MEGESTROL 40 MG TAB PO SCH ×2 (08:23→20:48)
[2020-06-11] MEDS: CALCITROL 0.25 MCG CAP PO SCH (08:24)
[2020-06-11] MEDS: ESCITALOPRAM 20 MG TAB PO SCH (08:24)
[2020-06-11] MEDS: FUROSEMIDE 20 MG TABLET PO SCH ×2 (08:24→17:08)
[2020-06-11] MEDS: HYDRALAZINE HCL 25 MG TABLET PO SCH ×2 (08:24→20:49)
[2020-06-11] MEDS: FOLIC ACID 1 MG TABLET PO SCH (08:24)
[2020-06-11] MEDS: FERROUS SULFATE 325 MG TAB PO SCH (08:24)
[2020-06-11] MEDS: DOCUSATE NA 100 MG CAP PO SCH (08:24)
[2020-06-11] MEDS: AMLODIPINE 5 MG TAB PO SCH (08:25)
[2020-06-11] MEDS: FE SULF/FA/VIT B COMP & C TAB PO SCH (08:26)
[2020-06-11] MEDS: GLUCERNA SHAKE 237 ML CAN PO SCH ×2 (08:27→20:50)
[2020-06-11] MEDS: ALBUTEROL 2.5 MG/3 ML NEB SOL NEB PRN ×2 (09:10→14:50)
[2020-06-11] MEDS: IPRATROPIUM BROM 0.5MG/2.5ML NEB PRN ×2 (09:10→14:50)
[2020-06-11] MEDS: TRAZODONE 50 MG TABLET PO PRN (20:48)
[2020-06-11] MEDS: FINASTERIDE 5 MG TAB PO SCH (20:48)
[2020-06-11] MEDS: ATORVASTATIN 80 MG TAB PO SCH (20:48)
[2020-06-11] MEDS: TAMSULOSIN 0.4 MG SR CAP PO SCH (20:49)
[2020-06-11] MEDS: INSULIN GLARGINE 100 UNITS/ML SQ SCH (20:49)
--- NOTE | 2020-06-11 21:18 | R.PN ---
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 SUBJECTIVE: Pt denied any depression. Pt denied any Shortness of Breath. WBC 8.3, Hgb 8.8, Pricing Strategist 1.74, glucose 121 to 241. K+ 4.9, Pricing Strategist 1.65, prealbumin 19.1 Performed supine therapeutic exercises with min assistance. VITAL SIGNS Temperature: 98.7 F SBP/DBP: 153/86 Pulse: 68 Resp: 16 MEDICATION ALLERGIES: No Known Drug Allergies (NKDA) ENVIRONMENTAL ALLERGIES: - Substance Allergies None Known - Other Allergies None Known NURSING: - Shower allowing shower ACTIVITIES OOB only with supervision THERAPIES: - Dietary and Nutrition Adequate Nutrition. Nutritional Education. Nutritional Supplements. PHYSICAL EXAM - Gen Alert and awake Lying in bed No apparent distress Oriented to: person, time, and place - Skin No skin breakdown. Normacephalic - Eyes No abnormalities - ENMT No abnormalities - Neck No abnormalities No cervical adenopathy - CVS RRR - Chest No abnormalities - Resp No wheezing - Abd Soft - GI Non distended Deferred - No abnormalities - Ext No significant edema - MSK 4+/5 weakness in both lower extremities. - Neuro No focal deficits - Psych No abnormalities ASSESSMENT: Pt. is a 65 yo Right-handed male of unknown race.On 05/17/2020 he was admitted to [facility] with diagnosis HEART FAILURE.His impairment category is Cardiac 09 - Cardiac Disorders (09).Pre -morbidly, Pt. was independent/mod-I in Locomotion, Social Cognition, Self-Care, and Communication; a nd he had good Balance, Transfers Control, and Sphincter Control.Currently, he has deficits of Safety Awareness, Social Cognition, Transfers Control, Sphincter Control, Self-Care, Communication, and End urance.Pt. is now referred to [facility] for acute in-patient rehabilitation i n order to maximize patient's functional independence in activities of daily living, strength, ROM, a nd mobility.- Rehab Goal Patient has realistic goal of being discharged at assistance level Dago-to-sup to reside at Home with Family/Relatives. MDM/PLAN: - Physical Therapy Gait dysfunction - to improve, our physical therapists will perform initial evaluation of pt's statu s upon admission and devise an individualized program for Gait Training, and Wheel Chair mobility Inability to transfer - to improve, our physical therapists will perform initial evaluation of pt's status upon admission and devise an individualized program for Bed mobility Need for home safety evaluation - to improve, our physical therapists will perform initial evaluatio n of pt's status upon admission and devise an individualized program for Home Evaluation Need in caregiver upon discharge - to improve, our physical therapists will perform initial evaluati on of pt's status upon admission and devise an individualized program for Caregiver Training Edema - to improve, our physical therapists will perform initial evaluation of pt's status upon admi ssion and devise an individualized program for Elevation Training, and Lymphedema Therapy New precaution - to improve, our physical therapists will perform initial evaluation of pt's status upon admission and devise an individualized program for Patient precaution education Poor endurance - to improve, our physical therapists will perform initial evaluation of pt's status upon admission and devise an individualized program for Endurance Training Weakness - to improve, our physical therapists will perform initial evaluation of pt's status upon a dmission and devise an individualized program for Aquatic Therapy, Neuromuscular Reeducation, and Str engthening Achieving independence - to improve, our physical therapists will perform initial evaluation of pt's status upon admission and devise an individualized program for Community Reintegration Activities - Occupational Therapy ADL deficits - to improve, our occupation therapists will perform initial evaluation of pt's status upon admission and devise an individualized program for Bathing, Bed mobility, Community Reintegratio n, Cooking, Dressing, Eating, Fine Motor Skills, Grooming, Homemaking, Kitchen Mobility, Laundry, Pat ient Education, Safety Awareness, Splinting - Positioning, Transfers(Toilet, Tub, Shower), and Wheel Chair Management Cognitive deficits - to improve, our occupation therapists will perform initial evaluation of pt's s tatus upon admission and devise an individualized program for Cognition - orientation 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 for zoo caretaker - to improve, our occupation therapists will perform initial evaluation of pt's status upon admission and devise an individualized program for Caregiver Training Weakness - to improve, our occupation therapists will perform initial evaluation of pt's status upon admission and devise an individualized program for Aquatic Therapy, Balance, Endurance, UE ROM, and UE strengthening - Other See attached MAR (Medication Administration Record) - Diet Type Continue Regular - Diet - Liquid Texture Continue Regular - Tube Feed Continue N/A - Diet - Solid Texture Continue Regular - Shower allowing shower FUNCTIONAL STATUS: UPDATED AT WEEKLY TEAM CONFERENCE - Bladder Same accident frequency: 7-Ind - No accidents in the past 7 days - Bowel Same accident frequency: 7-Ind - No accidents in the past 7 days - Walking Same score based on distance walked: 0(N/A) - Wheelchair Same score based on distance traveled: 0(N/A) FUNCTIONAL STATUS: - Self-Care A. Eating Ind B. Grooming Dago C. Bathing Dago D. Dressing - Upper sup E. Dressing - Lower Bakari F. Toileting sup - Sphincter Control G. Bladder control Dago H. Bowel control Dago - Transfers Control I. Bed/Chair/Wheelchair sup J. Toilet sup K. Tub/Shower Bakari - Locomotion L. Walk/Wheelchair (B) sup M. Stairs ADNO - Communication N. Comprehension (B) Dago O. Expression (B) Dago - Social Cognition P. Social Interaction Dago Q. Problem Solving Dago R. Memory Dago - Endurance Good - Balance Fair - Safety Awareness Good QI SCORES: - Self-Care A. Eating 03-Partial/moderate assistance B. Oral hygiene 03-Partial/moderate assistance C. Toileting hygiene 02-Substantial/maximal assistance E. Shower/bathe self 02-Substantial/maximal assistance F. Upper body dressing 02-Substantial/maximal assistance G. Lower body dressing 02-Substantial/maximal assistance H. Putting on/taking off footwear 88-Not attempted due to medical condition or safety concerns - Mobility A. Roll left and right 03-Partial/moderate assistance B. Sit to lying 03-Partial/moderate assistance C. Lying to sitting on side of bed 02-Substantial/maximal assistance D. Sit to stand 02-Substantial/maximal assistance E. Chair/[id number] transfer 02-Substantial/maximal assistance F. Toilet transfer 02-Substantial/maximal assistance G. Car transfer 88-Not attempted due to medical condition or safety concerns I. Walk 10 feet 02-Substantial/maximal assistance J. Walk 50 feet with two turns 88-Not attempted due to medical condition or safety concerns K. Walk 150 feet 88-Not attempted due to medical condition or safety concerns L. Walking 10 feet on uneven surfaces 88-Not attempted due to medical condition or safety concerns M. 1 step (curb) 88-Not attempted due to medical condition or safety concerns N. 4 steps 88-Not attempted due to medical condition or safety concerns O. 12 steps 88-Not attempted due to medical condition or safety concerns P. Picking up object 88-Not attempted due to medical condition or safety concerns R. Wheel 50 feet with two turns 88-Not attempted due to medical condition or safety concerns S. Wheel 150 feet 88-Not attempted due to medical condition or safety concerns - Bladder and Bowel Bladder continence Bowel continence - Endurance Fair - Balance Poor - Safety Awareness Poor CURRENT FUNC. 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
[2020-06-12] MEDS: METOPROLOL XL 50 MG TAB PO SCH (05:05)
[2020-06-12] MEDS: PANTOPRAZOLE 40MG TABLET PO SCH (06:34)
[2020-06-12] MEDS: ONDANSETRON 4 MG (ODT) TAB PO PRN (06:40)
[2020-06-12] MEDS: INSULIN -REGULAR HUMAN 50 UNIT/0.5 ML ML SQ SCH ×4 (07:30→19:53)
[2020-06-12] MEDS: FERROUS SULFATE 325 MG TAB PO SCH (08:00)
[2020-06-12] MEDS: CALCITROL 0.25 MCG CAP PO SCH (08:00)
[2020-06-12] MEDS: FE SULF/FA/VIT B COMP & C TAB PO SCH (08:00)
[2020-06-12] MEDS: MEGESTROL 40 MG TAB PO SCH ×2 (08:00→19:52)
[2020-06-12] MEDS: CLOPIDOGREL 75 MG TABLET PO SCH (08:00)
[2020-06-12] MEDS: AMLODIPINE 5 MG TAB PO SCH (08:00)
[2020-06-12] MEDS: ESCITALOPRAM 20 MG TAB PO SCH (08:00)
[2020-06-12] MEDS: FOLIC ACID 1 MG TABLET PO SCH (08:00)
[2020-06-12] MEDS: VITAMIN D 5,000 UNIT CAP PO SCH (08:00)
[2020-06-12] MEDS: DOCUSATE NA 100 MG CAP PO SCH (08:00)
[2020-06-12] MEDS: HYDRALAZINE HCL 25 MG TABLET PO SCH ×2 (08:00→19:52)
[2020-06-12] MEDS: LIDOCAINE 4% PATCH TOP SCH (08:00)
[2020-06-12] MEDS: GLUCERNA SHAKE 237 ML CAN PO SCH ×2 (08:00→19:52)
[2020-06-12] MEDS: JUVEN PACKET PO SCH ×2 (08:00→19:52)
[2020-06-12] MEDS: GABAPENTIN 100 MG CAP PO SCH (09:00)
[2020-06-12] MEDS: FUROSEMIDE 20 MG TABLET PO SCH ×2 (09:00→17:00)
[2020-06-12] MEDS: ENOXAPARIN 40 MG/0.4 ML SQ SCH (10:12)
[2020-06-12] MEDS: CALCITONIN NASAL SPRAY 200 IU/DOSE NAS SCH (10:13)
[2020-06-12] MEDS: ALBUTEROL 2.5 MG/3 ML NEB SOL NEB PRN (13:10)
[2020-06-12] MEDS: IPRATROPIUM BROM 0.5MG/2.5ML NEB PRN (13:10)
[2020-06-12] MEDS: TRAMADOL HCL 50 MG TAB PO PRN (18:11)
--- NOTE | 2020-06-12 19:19 | RAD REPORT ---
EXAM DESCRIPTION: RAD - Lumbar Spine 3 Views - 06/12/2020 6:00 pm CLINICAL HISTORY: increase pain lower back, hx of fall at home COMPARISON: Abdomen Pelvis Wo Contrast dated 05/28/2020 FINDINGS: A three-view lumbar spine examination was performed. Partial compression fractures of T12 and L3 are noted. No measurable change in height compared to the May 28 study. Bones are osteopenic. No new compression fractures seen. Significant degenerative disc disease present at L3-4, L4-5 and L5-S1. Prominent mid and lower lumbar facet joint degenerativ e change seen. No pars defects identified. IMPRESSION: Stable partial compression fracture T12 and L3. Osteopenic and degenerative changes as detailed. No significant change from May 28.
[2020-06-12] MEDS: guaiFENesin 100 MG/5 ML UCUP PO PRN (19:51)
[2020-06-12] MEDS: TAMSULOSIN 0.4 MG SR CAP PO SCH (19:52)
[2020-06-12] MEDS: GABAPENTIN 300 MG CAP PO SCH (19:52)
[2020-06-12] MEDS: TRAZODONE 50 MG TABLET PO PRN (19:52)
[2020-06-12] MEDS: FINASTERIDE 5 MG TAB PO SCH (19:52)
[2020-06-12] MEDS: CRANBERRY FRUIT EXTRACT 200 MG CAP PO SCH (19:52)
[2020-06-12] MEDS: ATORVASTATIN 80 MG TAB PO SCH (19:52)
[2020-06-12] MEDS: INSULIN GLARGINE 100 UNITS/ML SQ SCH (19:53)
[2020-06-13] MEDS: METOPROLOL XL 50 MG TAB PO SCH (05:18)
[2020-06-13 06:02] LABS: Absolute Lymphocytes (CBC) 1.5 K/uL (0.7-4.9); Basophils % 0.8 % (0-1.3); Hematocrit 27.5 % (39.6-49.0); RBC Red Blood Cell Count 3.83 M/uL (4.33-5.43)
[2020-06-13 06:12] LABS: Potassium 4.3 mmol/L (3.5-5.1)
[2020-06-13] MEDS: INSULIN -REGULAR HUMAN 50 UNIT/0.5 ML ML SQ SCH ×4 (07:30→20:46)
[2020-06-13] MEDS: GLUCERNA SHAKE 237 ML CAN PO SCH ×2 (08:00→19:50)
[2020-06-13] MEDS: JUVEN PACKET PO SCH ×3 (08:00→20:00)
[2020-06-13 08:40] LABS: Platelet Estimate ADEQ; White Blood Cell Scan OK (OK)
[2020-06-13 08:42] LABS: Blood Morphology Comment NOTED (NOT SEEN); Ovalocytes 1+; Poikilocytosis 2+
[2020-06-13] MEDS: DOCUSATE NA 100 MG CAP PO SCH (09:08)
[2020-06-13] MEDS: FUROSEMIDE 20 MG TABLET PO SCH ×2 (09:08→17:26)
[2020-06-13] MEDS: PANTOPRAZOLE 40MG TABLET PO SCH (09:09)
[2020-06-13] MEDS: MEGESTROL 40 MG TAB PO SCH ×2 (09:09→19:51)
[2020-06-13] MEDS: CRANBERRY FRUIT EXTRACT 200 MG CAP PO SCH ×2 (09:09→19:50)
[2020-06-13] MEDS: ESCITALOPRAM 20 MG TAB PO SCH (09:09)
[2020-06-13] MEDS: VITAMIN D 5,000 UNIT CAP PO SCH (09:09)
[2020-06-13] MEDS: CALCITROL 0.25 MCG CAP PO SCH (09:09)
[2020-06-13] MEDS: AMLODIPINE 5 MG TAB PO SCH (09:10)
[2020-06-13] MEDS: FOLIC ACID 1 MG TABLET PO SCH (09:10)
[2020-06-13] MEDS: CLOPIDOGREL 75 MG TABLET PO SCH (09:10)
[2020-06-13] MEDS: HYDRALAZINE HCL 25 MG TABLET PO SCH ×2 (09:10→19:50)
[2020-06-13] MEDS: LIDOCAINE 4% PATCH TOP SCH (09:10)
[2020-06-13] MEDS: GABAPENTIN 300 MG CAP PO SCH ×2 (09:10→19:51)
[2020-06-13] MEDS: CALCITONIN NASAL SPRAY 200 IU/DOSE NAS SCH (09:11)
[2020-06-13] MEDS: ENOXAPARIN 40 MG/0.4 ML SQ SCH (09:11)
[2020-06-13] MEDS: FE SULF/FA/VIT B COMP & C TAB PO SCH (11:03)
[2020-06-13] MEDS: TRAMADOL HCL 50 MG TAB PO PRN (11:03)
[2020-06-13] MEDS: FERROUS SULFATE 325 MG TAB PO SCH (11:03)
--- NOTE | 2020-06-13 18:20 | R.PN ---
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 SUBJECTIVE: Pt denied any depression. Pt denied any Shortness of Breath. WBC 6.1, Hgb 9.28, Oversize Load Pilot Escort 1.4874, glucose 120 to 192. K+ 4.3, prealbumin 19.1 Performed supine therapeutic exercises with min assistance. Self-propelled wheelchair 250' with standby assistance. VITAL SIGNS Temperature: 98.1 F SBP/DBP: 141/81 Pulse: 62 Resp: 15 MEDICATION ALLERGIES: No Known Drug Allergies (NKDA) ENVIRONMENTAL ALLERGIES: - Substance Allergies None Known - Other Allergies None Known NURSING: - Shower allowing shower ACTIVITIES OOB only with supervision THERAPIES: - Dietary and Nutrition Adequate Nutrition. Nutritional Education. Nutritional Supplements. PHYSICAL EXAM - Gen Alert and awake Lying in bed No apparent distress Oriented to: person, time, and place - Skin No skin breakdown. Normacephalic - Eyes No abnormalities - ENMT No abnormalities - Neck No abnormalities No cervical adenopathy - CVS RRR - Chest No abnormalities - Resp No wheezing - Abd Soft - GI Non distended Deferred - No abnormalities - Ext No significant edema - MSK 4+/5 weakness in both lower extremities. - Neuro No focal deficits - Psych No abnormalities ASSESSMENT: Pt. is a 65 yo Right-handed male of unknown race.On 05/17/2020 he was admitted to [facility] with diagnosis HEART FAILURE.His impairment category is Cardiac 09 - Cardiac Disorders (09).Pre -morbidly, Pt. was independent/mod-I in Locomotion, Social Cognition, Self-Care, and Communication; a nd he had good Balance, Transfers Control, and Sphincter Control.Currently, he has deficits of Safety Awareness, Social Cognition, Transfers Control, Sphincter Control, Self-Care, Communication, and End urance.Pt. is now referred to [facility] for acute in-patient rehabilitation i n order to maximize patient's functional independence in activities of daily living, strength, ROM, a nd mobility.- Rehab Goal Patient has realistic goal of being discharged at assistance level Dago-to-sup to reside at Home with Family/Relatives. MDM/PLAN: - Physical Therapy Gait dysfunction - to improve, our physical therapists will perform initial evaluation of pt's statu s upon admission and devise an individualized program for Gait Training, and Wheel Chair mobility Inability to transfer - to improve, our physical therapists will perform initial evaluation of pt's status upon admission and devise an individualized program for Bed mobility Need for home safety evaluation - to improve, our physical therapists will perform initial evaluatio n of pt's status upon admission and devise an individualized program for Home Evaluation Need in caregiver upon discharge - to improve, our physical therapists will perform initial evaluati on of pt's status upon admission and devise an individualized program for Caregiver Training Edema - to improve, our physical therapists will perform initial evaluation of pt's status upon admi ssion and devise an individualized program for Elevation Training, and Lymphedema Therapy New precaution - to improve, our physical therapists will perform initial evaluation of pt's status upon admission and devise an individualized program for Patient precaution education Poor endurance - to improve, our physical therapists will perform initial evaluation of pt's status upon admission and devise an individualized program for Endurance Training Weakness - to improve, our physical therapists will perform initial evaluation of pt's status upon a dmission and devise an individualized program for Aquatic Therapy, Neuromuscular Reeducation, and Str engthening Achieving independence - to improve, our physical therapists will perform initial evaluation of pt's status upon admission and devise an individualized program for Community Reintegration Activities - Occupational Therapy ADL deficits - to improve, our occupation therapists will perform initial evaluation of pt's status upon admission and devise an individualized program for Bathing, Bed mobility, Community Reintegratio n, Cooking, Dressing, Eating, Fine Motor Skills, Grooming, Homemaking, Kitchen Mobility, Laundry, Pat ient Education, Safety Awareness, Splinting - Positioning, Transfers(Toilet, Tub, Shower), and Wheel Chair Management Cognitive deficits - to improve, our occupation therapists will perform initial evaluation of pt's s tatus upon admission and devise an individualized program for Cognition - orientation Need for care transitions nurse - to improve, our occupation therapists will perform initial evaluation of pt's status upon admission and devise an individualized program for Caregiver Training Weakness - to improve, our occupation therapists will perform initial evaluation of pt's status upon admission and devise an individualized program for Aquatic Therapy, Balance, Endurance, UE ROM, and UE strengthening - Other See attached MAR (Medication Administration Record) - Diet Type Continue Regular - Diet - Liquid Texture Continue Regular - Tube Feed Continue N/A - Diet - Solid Texture Continue Regular - Shower allowing shower FUNCTIONAL STATUS: UPDATED AT WEEKLY TEAM CONFERENCE - Bladder Same accident frequency: 7-Ind - No accidents in the past 7 days - Bowel Same accident frequency: 7-Ind - No accidents in the past 7 days - Walking Same score based on distance walked: 0(N/A) - Wheelchair Same score based on distance traveled: 0(N/A) FUNCTIONAL STATUS: - Self-Care A. Eating Ind B. Grooming Dago C. Bathing Dago D. Dressing - Upper sup E. Dressing - Lower Bakari F. Toileting sup - Sphincter Control G. Bladder control Dago H. Bowel control Dago - Transfers Control I. Bed/Chair/Wheelchair sup J. Toilet sup K. Tub/Shower Bakari - Locomotion L. Walk/Wheelchair (B) sup M. Stairs ADNO - Communication N. Comprehension (B) Dago O. Expression (B) Dago - Social Cognition P. Social Interaction Dago Q. Problem Solving Dago R. Memory Dago - Endurance Good - Balance Fair - Safety Awareness Good QI SCORES: - Self-Care A. Eating 03-Partial/moderate assistance B. Oral hygiene 03-Partial/moderate assistance C. Toileting hygiene 02-Substantial/maximal assistance E. Shower/bathe self 02-Substantial/maximal assistance F. Upper body dressing 02-Substantial/maximal assistance G. Lower body dressing 02-Substantial/maximal assistance H. Putting on/taking off footwear 88-Not attempted due to medical condition or safety concerns - Mobility A. Roll left and right 03-Partial/moderate assistance B. Sit to lying 03-Partial/moderate assistance C. Lying to sitting on side of bed 02-Substantial/maximal assistance D. Sit to stand 02-Substantial/maximal assistance E. Chair/[id number] transfer 02-Substantial/maximal assistance F. Toilet transfer 02-Substantial/maximal assistance G. Car transfer 88-Not attempted due to medical condition or safety concerns I. Walk 10 feet 02-Substantial/maximal assistance J. Walk 50 feet with two turns 88-Not attempted due to medical condition or safety concerns K. Walk 150 feet 88-Not attempted due to medical condition or safety concerns L. Walking 10 feet on uneven surfaces 88-Not attempted due to medical condition or safety concerns M. 1 step (curb) 88-Not attempted due to medical condition or safety concerns N. 4 steps 88-Not attempted due to medical condition or safety concerns O. 12 steps 88-Not attempted due to medical condition or safety concerns P. Picking up object 88-Not attempted due to medical condition or safety concerns R. Wheel 50 feet with two turns 88-Not attempted due to medical condition or safety concerns S. Wheel 150 feet 88-Not attempted due to medical condition or safety concerns - Bladder and Bowel Bladder continence Bowel continence - Endurance Fair - Balance Poor - Safety Awareness Poor CURRENT FUNC. 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
[2020-06-13] MEDS: TRAZODONE 50 MG TABLET PO PRN ×2 (19:54→20:48)
[2020-06-13] MEDS: DOCUSATE NA/SENNA CONC 1 TAB PO PRN (19:54)
[2020-06-13] MEDS: POLYVINYL ALCOHOL 1.4% 15 ML EACH EYE PRN (19:55)
[2020-06-13] MEDS: INSULIN GLARGINE 100 UNITS/ML SQ SCH (20:44)
[2020-06-13] MEDS: TAMSULOSIN 0.4 MG SR CAP PO SCH (20:44)
[2020-06-13] MEDS: ATORVASTATIN 80 MG TAB PO SCH (20:45)
[2020-06-13] MEDS: FINASTERIDE 5 MG TAB PO SCH (20:46)
[2020-06-13] MEDS: guaiFENesin 100 MG/5 ML UCUP PO PRN (20:48)
--- NOTE | 2020-06-14 02:27 | FAST ---
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 Vel Murphy M.D. ADMISSION DIAGNOSIS: - Cardiac 09 - Cardiac Disorders () HEART FAILURE. EATING: Not assessed/no information CODE: - ORAL HYGIENE: Not assessed/no information CODE: - TOILETING HYGIENE: TOILETING HYGIENE - STEP 1: Does the patient complete the activity by him/herself with no assistance (physical, verbal/nonverbal cueing, setup/clean-up)? No. TOILETING HYGIENE - STEP 2: Does the patient need only setup/clean-up assistance from one helper? No. TOILETING HYGIENE - STEP 3: Does the patient need only verbal/nonverbal cueing or touching/steadying/contact guard assistance fro m one helper? No. TOILETING HYGIENE - STEP 4: Does the patient need physical assistance - for example lifting or trunk support from one helper - wi th the helper providing less than half of the effort? Yes. 1. [id number] ADMISSION PERFORMANCE: Partial/moderate assistance CODE: 03 BATHING: Not assessed/no information CODE: - DRESSING - UPPER BODY: Not assessed/no information CODE: - DRESSING - LOWER BODY: Not assessed/no information CODE: - PUTTING ON/TAKING OFF FOOTWEAR: Not assessed/no information CODE: - ROLL LEFT AND RIGHT: ROLL LEFT AND RIGHT - STEP 1: Does the patient complete the activity by him/herself with no assistance (physical, verbal/nonverbal cueing, setup/clean-up)? No. ROLL LEFT AND RIGHT - STEP 2: Does the patient need only setup/clean-up assistance from one helper? No. ROLL LEFT AND RIGHT - STEP 3: Does the patient need only verbal/nonverbal cueing or touching/steadying/contact guard assistance fro m one helper? Yes. 1. [id number] ADMISSION PERFORMANCE: Supervision or touching assistance CODE: 04 SIT TO LYING: Not assessed/no information CODE: - LYING TO SITTING: Not assessed/no information CODE: - SIT TO STAND: Not assessed/no information CODE: - TRANSFERS: BED, CHAIR: Not assessed/no information CODE: - TRANSFER TOILET: Not assessed/no information CODE: - TRANSFERS: CAR: Not assessed/no information CODE: - WALK 10 FEET: Not assessed/no information CODE: - 1 STEP (CURB): Not assessed/no information CODE: - PICKING UP OBJECT: Not assessed/no information CODE: - DOES THE PATIENT USE A WHEELCHAIR/SCOOTER? CODE: EXPR WHEEL 50 FEET WITH TWO TURNS: Not assessed/no information CODE: - INDICATE THE TYPE OF WHEELCHAIR/SCOOTER USED: CODE: EXPR WHEEL 150 FEET: Not assessed/no information CODE: - INDICATE THE TYPE OF WHEELCHAIR/SCOOTER USED: CODE: EXPR BLADDER AND BOWEL: H350. BLADDER CONTINENCE (3-DAY ASSESSMENT PERIOD): Not applicable (e.g., indwelling catheter) CODE: 9 H400. BOWEL CONTINENCE (3-DAY ASSESSMENT PERIOD): Always continent CODE: 0
[2020-06-14] MEDS: METOPROLOL XL 50 MG TAB PO SCH (05:18)
[2020-06-14] MEDS: INSULIN -REGULAR HUMAN 50 UNIT/0.5 ML ML SQ SCH ×4 (07:30→21:00)
[2020-06-14] MEDS: POLYVINYL ALCOHOL 1.4% 15 ML EACH EYE PRN (07:47)
[2020-06-14] MEDS: CALCITONIN NASAL SPRAY 200 IU/DOSE NAS SCH (07:47)
[2020-06-14] MEDS: ENOXAPARIN 40 MG/0.4 ML SQ SCH (07:47)
[2020-06-14] MEDS: LIDOCAINE 4% PATCH TOP SCH (07:47)
[2020-06-14] MEDS: FUROSEMIDE 20 MG TABLET PO SCH ×2 (07:48→16:53)
[2020-06-14] MEDS: AMLODIPINE 5 MG TAB PO SCH (07:48)
[2020-06-14] MEDS: FOLIC ACID 1 MG TABLET PO SCH (07:48)
[2020-06-14] MEDS: GABAPENTIN 300 MG CAP PO SCH ×2 (07:48→21:03)
[2020-06-14] MEDS: CLOPIDOGREL 75 MG TABLET PO SCH (07:48)
[2020-06-14] MEDS: PANTOPRAZOLE 40MG TABLET PO SCH (07:48)
[2020-06-14] MEDS: MEGESTROL 40 MG TAB PO SCH ×2 (07:48→21:03)
[2020-06-14] MEDS: DOCUSATE NA 100 MG CAP PO SCH (07:49)
[2020-06-14] MEDS: VITAMIN D 5,000 UNIT CAP PO SCH (07:49)
[2020-06-14] MEDS: JUVEN PACKET PO SCH ×2 (07:49→21:04)
[2020-06-14] MEDS: CALCITROL 0.25 MCG CAP PO SCH (07:49)
[2020-06-14] MEDS: ESCITALOPRAM 20 MG TAB PO SCH (07:49)
[2020-06-14] MEDS: CRANBERRY FRUIT EXTRACT 200 MG CAP PO SCH ×2 (07:49→21:02)
[2020-06-14] MEDS: GLUCERNA SHAKE 237 ML CAN PO SCH ×2 (07:49→21:04)
[2020-06-14] MEDS: HYDRALAZINE HCL 25 MG TABLET PO SCH ×2 (07:49→21:03)
[2020-06-14] MEDS: TRAMADOL HCL 50 MG TAB PO PRN (09:40)
[2020-06-14] MEDS: FERROUS SULFATE 325 MG TAB PO SCH (11:45)
[2020-06-14] MEDS: FE SULF/FA/VIT B COMP & C TAB PO SCH (11:46)
[2020-06-14] MEDS ORDERED: HYDROCODONE/APAP 5/325 MG TAB PO ONE (18:00)
--- NOTE | 2020-06-14 18:50 | RAD REPORT ---
EXAM DESCRIPTION: RAD - Lumbar Spine 3 Views - 06/14/2020 5:50 pm CLINICAL HISTORY: back pain COMPARISON: Lumbar Spine 3 Views dated 06/12/2020 FINDINGS: A three-view lumbar spine examination was performed. T12 fracture shows slightly greater loss in height along the anterior margin. Superior and inferior e ndplates are less well defined. Posterior wall height is preserved. Correlation is needed to determin e the patient's pain symptoms are primarily thoracolumbar junction. Partial compression fracture of L3 has not changed. No new fracture. Bones are osteoporotic. Prominen t facet degenerative change present in the mid and lower lumbar spine. No new disc space narrowing. IMPRESSION: Slight progression in height loss of a previously detailed T12 compression fracture. Stable L3 partial compression fracture. Osteoporosis and facet degenerative change with no new compression fracture.
[2020-06-14] MEDS: ATORVASTATIN 80 MG TAB PO SCH (21:03)
[2020-06-14] MEDS: FINASTERIDE 5 MG TAB PO SCH (21:03)
[2020-06-14] MEDS: INSULIN GLARGINE 100 UNITS/ML SQ SCH (21:03)
[2020-06-14] MEDS: TAMSULOSIN 0.4 MG SR CAP PO SCH (21:03)
--- NOTE | 2020-06-14 21:08 | P.PN ---
Date of Service: 06/14/20 Vital Signs Temp Pulse Resp BP Pulse Ox 97.7 F 64 18 151/60 H 96 06/14/20 19:51 06/14/20 19:51 06/14/20 19:51 06/14/20 19:51 06/14/20 19:51 Medications Acetaminophen (Tylenol -Extra Strength) 500 mg PO Q4H PRN PRN Reason: Pain scale 2-4 (Mild) Stop: 07/04/20 03:42 Last Admin: 06/10/20 11:03 Dose: 500 mg Documented by: Albuterol Sulfate (Proventil 0.083% Neb Soln) 2.5 mg NEB [id number] PRN PRN Reason: SHORTNESS OF BREATH Stop: 07/03/20 20:01 Last Admin: 06/12/20 13:10 Dose: 2.5 mg Documented by: Amlodipine Besylate (Norvasc) 5 mg PO DAILY CANDELARIO Stop: 07/06/20 08:01 Last Admin: 06/14/20 07:48 Dose: 5 mg Documented by: Artificial Tears (Liquiflim Tears 1.4% Ophth Rosalee) 1 drops EACH EYE TID PRN PRN Reason: Eye redness Stop: 07/04/20 03:43 Last Admin: 06/14/20 07:47 Dose: 1 drops Documented by: Atorvastatin Calcium (Lipitor) 80 mg PO BEDTIME CANDELARIO Stop: 07/04/20 21:01 Last Admin: 06/13/20 20:45 Dose: 80 mg Documented by: Bisacodyl (Dulcolax) 10 mg HI DAILY PRN PRN Reason: CONSTIPATION Stop: 07/05/20 15:16 Last Admin: 06/10/20 14:58 Dose: 10 mg Documented by: Calcitonin [place] (Miacalcin Nasal Silex) 1 sprays GEMA DAILY CANDELARIO Stop: 07/04/20 08:01 Last Admin: 06/14/20 07:47 Dose: 1 sprays Documented by: Calcitriol (Rocaltrol) 0.5 mcg PO DAILY CANDELARIO Stop: 07/04/20 08:01 Last Admin: 06/14/20 07:49 Dose: 0.5 mcg Documented by: Cholecalciferol (Vitamin D 5,000 Iu Cap) 5,000 unit PO DAILY CANDELARIO Stop: 07/04/20 08:01 Last Admin: 06/14/20 07:49 Dose: 5,000 unit Documented by: Clopidogrel Bisulfate (Plavix) 75 mg PO DAILY CANDELARIO Stop: 07/04/20 08:01 Last Admin: 06/14/20 07:48 Dose: 75 mg Documented by: Dextrose (Dextrose 50% Syringe) 12.5 gm IV PRN PRN; Protocol PRN Reason: HYPOGLYCEMIA Stop: 07/03/20 18:25 Docusate Sodium (Colace Cap) 100 mg PO DAILY CANDELARIO Stop: 07/06/20 08:01 Last Admin: 06/14/20 07:49 Dose: 100 mg Documented by: Enoxaparin Sodium (Lovenox 40 Mg Inj) 40 mg SQ DAILY CANDELARIO Stop: 07/04/20 08:01 Last Admin: 06/14/20 07:47 Dose: 40 mg Documented by: Enteral Nutritional Formula (Glucerna Shake) 237 ml PO BID CANDELARIO Stop: 07/07/20 20:01 Last Admin: 06/14/20 07:49 Dose: 237 ml Documented by: Escitalopram Oxalate (Lexapro) 20 mg PO DAILY CANDELARIO Stop: 07/04/20 08:01 Last Admin: 06/14/20 07:49 Dose: 20 mg Documented by: Ferrous Sulfate (Feosol) 325 mg PO 1200 CANDELARIO Stop: 07/13/20 12:01 Last Admin: 06/14/20 11:45 Dose: 325 mg Documented by: Finasteride (Proscar) 5 mg PO BEDTIME CANDELARIO Stop: 07/10/20 21:01 Last Admin: 06/13/20 20:46 Dose: 5 mg Documented by: Folic Acid (Folic Acid) 1 mg PO DAILY CANDELARIO Stop: 07/04/20 08:01 Last Admin: 06/14/20 07:48 Dose: 1 mg Documented by: Furosemide (Lasix) 20 mg PO BIDL CANDELARIO Stop: 07/06/20 09:01 Last Admin: 06/14/20 16:53 Dose: 20 mg Documented by: Gabapentin (Neurontin) 600 mg PO BID CANDELARIO Stop: 07/13/20 20:01 Last Admin: 06/14/20 07:48 Dose: 600 mg Documented by: Glucagon (Glucagen) 1 mg IM 1X PRN; Protocol PRN Reason: HYPOGLYCEMIA Stop: 07/03/20 18:25 Guaifenesin (Robitussin 100mg/5ml) 200 mg PO Q4HP PRN PRN Reason: COUGH Stop: 07/12/20 18:48 Last Admin: 06/13/20 20:48 Dose: 200 mg Documented by: Hydralazine HCl (Apresoline) 25 mg PO BID CANDELARIO Stop: 07/08/20 20:01 Last Admin: 06/14/20 07:49 Dose: 25 mg Documented by: Insulin Glargine (Lantus) 5 units SQ BEDTIME CANDELARIO Stop: 07/03/20 21:01 Last Admin: 06/13/20 20:44 Dose: 5 units Documented by: Insulin Human Regular (Novolin -R) 0 unit SQ ACHS ON LICENSE OF [facility]; Protocol Stop: 07/04/20 07:31 Last Admin: 06/14/20 16:30 Dose: Not Given Documented by: Ipratropium [place] (Atrovent Neb) 0.5 mg NEB [id number] PRN PRN Reason: SHORTNESS OF BREATH Stop: 07/03/20 20:01 Last Admin: 06/12/20 13:10 Dose: 0.5 mg Documented by: L-Arginine/L-Glutamine/HMB (Bryan) 1 pkt PO BID CANDELARIO Stop: 07/04/20 20:01 Last Admin: 06/14/20 07:49 Dose: 1 pkt Documented by: Lactulose (Cephulac) 10 gm PO BIDP PRN PRN Reason: CONSTIPATION Stop: 07/03/20 18:45 Last Admin: 06/14/20 11:45 Dose: 10 gm Documented by: Lidocaine (Aspercreme 4% Patch) 2 patch TOP DAILY ON LICENSE OF [facility] Stop: 07/11/20 08:01 Last Admin: 06/14/20 07:47 Dose: 2 patch Documented by: Megestrol Acetate (Megace) 40 mg PO BID CANDELARIO Stop: 07/04/20 20:01 Last Admin: 06/14/20 07:48 Dose: 40 mg Documented by: Metoprolol Succinate (Toprol Xl) 50 mg PO [id number] ON LICENSE OF [facility] Stop: 07/04/20 06:01 Last Admin: 06/14/20 05:18 Dose: 50 mg Documented by: Multivitamins/Iron (Hemocyte Plus) 1 tab PO 1200 ON LICENSE OF [facility] Stop: 07/13/20 12:01 Last Admin: 06/14/20 11:46 Dose: 1 tab Documented by: Ondansetron HCl (Zofran) 4 mg PO Q6H PRN PRN Reason: NAUSEA / VOMITING Stop: 07/05/20 08:43 Last Admin: 06/12/20 06:40 Dose: 4 mg Documented by: Pantoprazole Sodium (Protonix Tab) 40 mg PO DAILYAC CANDELARIO; Protocol Stop: 07/04/20 06:31 Last Admin: 06/14/20 07:48 Dose: 40 mg Documented by: Senna/Docusate Sodium (Senokot-S) 2 tab PO BEDTIME PRN PRN Reason: CONSTIPATION Stop: 07/05/20 15:16 Last Admin: 06/13/20 19:54 Dose: 2 tab Documented by: Tamsulosin HCl (Flomax) 0.4 mg PO BEDTIME CANDELARIO Stop: 07/03/20 21:01 Last Admin: 06/13/20 20:44 Dose: 0.4 mg Documented by: Tramadol HCl (Ultram) 100 mg PO Q4H PRN PRN Reason: Pain scale 5-7 (Moderate) Stop: 07/06/20 15:29 Last Admin: 06/14/20 09:40 Dose: 100 mg Documented by: Trazodone HCl (Desyrel) 100 mg PO BEDTIME PRN PRN PRN Reason: INSOMNIA Stop: 07/03/20 21:59 Last Admin: 06/13/20 20:48 Dose: 100 mg Documented by: Lab Results (last 24 hrs) 06/14/20 19:24: POC Glucose 188 H 06/14/20 16:34: POC Glucose 159 H 06/14/20 11:22: POC Glucose 149 H 06/14/20 07:01: POC Glucose 114 Microbiology Results 06/11/20 09:50 Nasopharnyx Coronavirus COVID-19 PCR - Final 06/04/20 00:01 Catheterized Urine [place] Count - Final No growth. 06/04/20 00:01 Catheterized Urine - Final No growth. Assessment/ Plan: Nephrology CPS stable without CP or SOB. No acute events overnight. Feeling better today. Persistent weakness. Vitals, medications, blood work and imaging reviewed in the chart. NAD. MMM. Neck supple. CTA. RRR. Soft Abd. No C/C/E. No rash. AAO. Normal Speech. 05/17/20 07:47: PT 11.8, INR 1.00, APTT 26.8 05/17/20 07:47: WBC 14.5 H, Hgb 8.2 L, Hct 24.9 L, Plt Count 198 05/17/20 07:47: Sodium 142, Potassium 3.7, BUN 46 H, Creatinine 1.83 H, Glucose 150 H, Total Bilirubin 0.9, AST 33, ALT 44, Alkaline Phosphatase 67, Lipase 86 Imagings Data: EXAM DESCRIPTION: CT - Head C Spine Cap Wo Con - 05/17/2020 8:12 am TECHNIQUE: Computed axial tomography of the head and cervical spine was obtained. Coronal and sagittal reconstruction was performed Computed axial tomography of the chest, abdomen and pelvis was obtained. Contrast was not requested. All CT scans are performed using dose optimization technique as appropriate and may include automated exposure control or mA/KV adjustment according to patient size. CLINICAL HISTORY: Head and neck injury with chest and abdominal pain status post fall COMPARISON: CT chest 2018 FINDINGS: An intracranial bleed is not seen. Low-density within the right internal capsule/basal ganglia has the appearance of an old lacunar infarction. 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 The ventricles are normal in caliber. An extra-axial fluid collection is not noted. . Opacification of the left mastoid. This may indicate mastoiditis and should be correlated clinically. A cervical fracture is not seen. No dislocation is noted. Spondylosis involves the cervical spine resulting central and foraminal stenosis The evaluation of mediastinum, tiffany, vessels, solid organs and bowel are limited secondary to the lack of contrast administration. A mediastinal hematoma is not noted. A pleural effusion is not seen. A lung contusion is not present. The liver,spleen, pancreas, adrenals,kidneys and bladder the do not demonstrate a traumatic injury Right renal cyst Mild acute compression fracture T12 vertebral body. Minimal retropulsion of fracture fragment into the spinal canal. The vertebral body is approximately 87% normal height Mild acute compression fracture L3 vertebral body. Vertebral body is ap proximately 85% normal height Trace amount of free fluid within the pelvis IMPRESSION: 1. No acute intracranial abnormality is seen. 2. A cervical fracture is not visualized. If the patient continues have symptoms to suggest intracranial/spinal cord pathology MRI be recommended 3. No traumatic abnormality involving the chest 4. Mild acute compression fractures T12 and L3 vertebral bodies EXAM DESCRIPTION: [facility] Single View05/17/2020 8:19 am CLINICAL HISTORY: Chest pain COMPARISON: July 2019 FINDINGS: The lungs appear clear of acute infiltrate. The heart is mildly enlarged. Postsurgical changes involve the chest. IMPRESSION: No acute abnormalities displayed EXAM DESCRIPTION: RAD - Chest Single View - 06/06/2020 7:53 am CLINICAL HISTORY: increase coughing Chest pain. COMPARISON: Abdomen 1 View (KUB) dated 05/28/2020; Abdomen 1 View (KUB) dated 05/26/2020; Chest Single View dated 05/26/2020; Chest Single View dated 05/24/2020 FINDINGS: Portable technique limits examination quality. Prominent emphysematous changes are seen throughout the lungs. The heart is moderately enlarged with sternotomy wires present. No displaced fractures. IMPRESSION: COPD. Conclusions/Impression: A/ OSCAR in the setting of hypovolemia & obstructive uropathy Hypokalemia Acidosis HTN with CKD/ CHF Diastolic CHF, chronic DM II with CKD BPH with LUTS Anemia in chronic illness GI bleed. P/ Continue current POC and Medications Maintain hernandez. Follow up with urology. Follow up with GI. Plan for outpt pill cam. Transfuse PRBC as needed. Encourage nutrition as tolerated. Recommend PT as tolerated. No NSAIDs. AM labs prn. Daily weight.
[2020-06-15] MEDS: METOPROLOL XL 50 MG TAB PO SCH (05:22)
[2020-06-15] MEDS: PANTOPRAZOLE 40MG TABLET PO SCH (06:37)
[2020-06-15] MEDS: ENOXAPARIN 40 MG/0.4 ML SQ SCH (07:16)
[2020-06-15] MEDS: GLUCERNA SHAKE 237 ML CAN PO SCH ×2 (07:17→20:01)
[2020-06-15] MEDS: POLYVINYL ALCOHOL 1.4% 15 ML EACH EYE PRN (07:18)
[2020-06-15] MEDS: CALCITONIN NASAL SPRAY 200 IU/DOSE NAS SCH (07:18)
[2020-06-15] MEDS: INSULIN -REGULAR HUMAN 50 UNIT/0.5 ML ML SQ SCH ×4 (07:30→19:59)
[2020-06-15] MEDS: DOCUSATE NA 100 MG CAP PO SCH ×2 (07:57→21:45)
[2020-06-15] MEDS: TRAMADOL HCL 50 MG TAB PO PRN (08:00)
[2020-06-15] MEDS: CALCITROL 0.25 MCG CAP PO SCH (08:02)
[2020-06-15] MEDS: VITAMIN D 5,000 UNIT CAP PO SCH (08:02)
[2020-06-15] MEDS: AMLODIPINE 5 MG TAB PO SCH (08:02)
[2020-06-15] MEDS: FUROSEMIDE 20 MG TABLET PO SCH ×2 (08:03→16:48)
[2020-06-15] MEDS: CRANBERRY FRUIT EXTRACT 200 MG CAP PO SCH ×2 (08:03→19:59)
[2020-06-15] MEDS: HYDRALAZINE HCL 25 MG TABLET PO SCH ×2 (08:03→20:01)
[2020-06-15] MEDS: MEGESTROL 40 MG TAB PO SCH ×2 (08:03→20:00)
[2020-06-15] MEDS: GABAPENTIN 300 MG CAP PO SCH ×2 (08:04→20:00)
[2020-06-15] MEDS: FOLIC ACID 1 MG TABLET PO SCH (08:04)
[2020-06-15] MEDS: JUVEN PACKET PO SCH ×2 (08:04→20:01)
[2020-06-15] MEDS: ESCITALOPRAM 20 MG TAB PO SCH (08:04)
[2020-06-15] MEDS: CLOPIDOGREL 75 MG TABLET PO SCH (08:04)
[2020-06-15] MEDS: LIDOCAINE 4% PATCH TOP SCH (09:04)
--- NOTE | 2020-06-15 09:42 | CON ---
Reason For Consultation: Urinary retention. History Of Present Illness: Mr. Okeefe is a 65-year-old gentleman with a history of insulin-dependent diabetes mellitus with neuropathy that has progressed over the past 3-5 years from his hands now int o his feet and toes, who suffered a fall, which according to him, resulted in a spinal fracture and n ow he is on the rehabilitation unit being managed. Apparently since his admission, he suffered an ad ditional fall. During this time course, he had a urethral Holcomb catheter placed with greater than 60 0 cc of urine retained, and despite having the catheter in place for a few days and being on Flomax, an additional attempt at a voiding trial and "bladder training" by the staff had failed to achieve hi s ability to void on a secondary attempt. As a result, the consultation was entered. He notes a madhu or history of significant lower urinary obstructive symptoms with a sense of incomplete emptying rout inely, weak stream, occasionally having to strain to void, and some nocturia. This has been going on for at least the last 3 months according to his recollection, although it was likely much longer. On examination, the patient has a urethral Holcomb catheter in place and clear yellow urine draining. He is lying in the bed comfortably with no acute distress. His phallus was uncircumcised and the for eskin was retracted beneath the glans so I manually had to reduce the paraphimosis in the hospital be d at that time. He had some tenderness and some cracking of the foreskin associated with the likely prolonged paraphimosis. Assessment And Recommendation: This is a 65-year-old gentleman with insulin-dependent diabetes melli tus and neuropathy associated with a spinal fracture at T12 and L3, which likely is also impacting hi s ability to void. The patient will require follow up in the Urology Clinic for assessment, which will include likely ne ed for urodynamics as well as cystoscopy. We will then manage his voiding circumstance from there. Meanwhile, continue Flomax and leave the Holcomb catheter to straight drainage via gravity. Any furthe r attempts at voiding trial will be managed as an outpatient. I provided the patient with my card an d he understood to contact the office to schedule an appointment. OSCAR/ERLIN Voice ID: [id number] Report ID: [id number]
[2020-06-15] MEDS: guaiFENesin 100 MG/5 ML UCUP PO PRN ×2 (10:42→19:58)
[2020-06-15] MEDS: FERROUS SULFATE 325 MG TAB PO SCH (11:22)
[2020-06-15] MEDS: FE SULF/FA/VIT B COMP & C TAB PO SCH (11:24)
--- NOTE | 2020-06-15 18:09 | R.PN ---
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 SUBJECTIVE: Pt denied any depression. Pt denied any Shortness of Breath. WBC 6.1, Hgb 9.28, Tower Equipment Installer 1.4874, glucose 115 to 216. K+ 4.3, prealbumin 19.1 Performed supine therapeutic exercises with min assistance. He did static standing balance exercises using a rolling walker. VITAL SIGNS Temperature: 98.4 F SBP/DBP: 119/59 Pulse: 67 Resp: 14 MEDICATION ALLERGIES: No Known Drug Allergies (NKDA) ENVIRONMENTAL ALLERGIES: - Substance Allergies None Known - Other Allergies None Known NURSING: - Shower allowing shower ACTIVITIES OOB only with supervision THERAPIES: - Dietary and Nutrition Adequate Nutrition. Nutritional Education. Nutritional Supplements. PHYSICAL EXAM - Gen Alert and awake Lying in bed No apparent distress Oriented to: person, time, and place - Skin No skin breakdown. Normacephalic - Eyes No abnormalities - ENMT No abnormalities - Neck No abnormalities No cervical adenopathy - CVS RRR - Chest No abnormalities - Resp No wheezing - Abd Soft - GI Non distended Deferred - No abnormalities - Ext No significant edema - MSK 4+/5 weakness in both lower extremities. - Neuro No focal deficits - Psych No abnormalities ASSESSMENT: Pt. is a 65 yo Right-handed male of unknown race.On 05/17/2020 he was admitted to [facility] with diagnosis HEART FAILURE.His impairment category is Cardiac 09 - Cardiac Disorders (09).Pre -morbidly, Pt. was independent/mod-I in Locomotion, Social Cognition, Self-Care, and Communication; a nd he had good Balance, Transfers Control, and Sphincter Control.Currently, he has deficits of Safety Awareness, Social Cognition, Transfers Control, Sphincter Control, Self-Care, Communication, and End urance.Pt. is now referred to [facility] for acute in-patient rehabilitation i n order to maximize patient's functional independence in activities of daily living, strength, ROM, a nd mobility.- Rehab Goal Patient has realistic goal of being discharged at assistance level Dago-to-sup to reside at Home with Family/Relatives. MDM/PLAN: - Physical Therapy Gait dysfunction - to improve, our physical therapists will perform initial evaluation of pt's statu s upon admission and devise an individualized program for Gait Training, and Wheel Chair mobility Inability to transfer - to improve, our physical therapists will perform initial evaluation of pt's status upon admission and devise an individualized program for Bed mobility Need for home safety evaluation - to improve, our physical therapists will perform initial evaluatio n of pt's status upon admission and devise an individualized program for Home Evaluation Need in caregiver upon discharge - to improve, our physical therapists will perform initial evaluati on of pt's status upon admission and devise an individualized program for Caregiver Training Edema - to improve, our physical therapists will perform initial evaluation of pt's status upon admi ssion and devise an individualized program for Elevation Training, and Lymphedema Therapy New precaution - to improve, our physical therapists will perform initial evaluation of pt's status upon admission and devise an individualized program for Patient precaution education Poor endurance - to improve, our physical therapists will perform initial evaluation of pt's status upon admission and devise an individualized program for Endurance Training Weakness - to improve, our physical therapists will perform initial evaluation of pt's status upon a dmission and devise an individualized program for Aquatic Therapy, Neuromuscular Reeducation, and Str engthening Achieving independence - to improve, our physical therapists will perform initial evaluation of pt's status upon admission and devise an individualized program for Community Reintegration Activities - Occupational Therapy ADL deficits - to improve, our occupation therapists will perform initial evaluation of pt's status upon admission and devise an individualized program for Bathing, Bed mobility, Community Reintegratio n, Cooking, Dressing, Eating, Fine Motor Skills, Grooming, Homemaking, Kitchen Mobility, Laundry, Pat ient Education, Safety Awareness, Splinting - Positioning, Transfers(Toilet, Tub, Shower), and Wheel Chair Management Cognitive deficits - to improve, our occupation therapists will perform initial evaluation of pt's s tatus upon admission and devise an individualized program for Cognition - orientation Need for patient care director - to improve, our occupation therapists will perform initial evaluation of pt's status upon admission and devise an individualized program for Caregiver Training Weakness - to improve, our occupation therapists will perform initial evaluation of pt's status upon admission and devise an individualized program for Aquatic Therapy, Balance, Endurance, UE ROM, and UE strengthening - Other See attached MAR (Medication Administration Record) - Diet Type Continue Regular - Diet - Liquid Texture Continue Regular - Tube Feed Continue N/A - Diet - Solid Texture Continue Regular - Shower allowing shower FUNCTIONAL STATUS: UPDATED AT WEEKLY TEAM CONFERENCE - Bladder Same accident frequency: 7-Ind - No accidents in the past 7 days - Bowel Same accident frequency: 7-Ind - No accidents in the past 7 days - Walking Same score based on distance walked: 0(N/A) - Wheelchair Same score based on distance traveled: 0(N/A) FUNCTIONAL STATUS: - Self-Care A. Eating Ind B. Grooming Dago C. Bathing Dago D. Dressing - Upper sup E. Dressing - Lower Bakari F. Toileting sup - Sphincter Control G. Bladder control Dago H. Bowel control Dago - Transfers Control I. Bed/Chair/Wheelchair sup J. Toilet sup K. Tub/Shower Bakari - Locomotion L. Walk/Wheelchair (B) sup M. Stairs ADNO - Communication N. Comprehension (B) Dago O. Expression (B) Dgao - Social Cognition P. Social Interaction Dago Q. Problem Solving Dago R. Memory Dago - Endurance Good - Balance Fair - Safety Awareness Good QI SCORES: - Self-Care A. Eating 03-Partial/moderate assistance B. Oral hygiene 03-Partial/moderate assistance C. Toileting hygiene 02-Substantial/maximal assistance E. Shower/bathe self 02-Substantial/maximal assistance F. Upper body dressing 02-Substantial/maximal assistance G. Lower body dressing 02-Substantial/maximal assistance H. Putting on/taking off footwear 88-Not attempted due to medical condition or safety concerns - Mobility A. Roll left and right 03-Partial/moderate assistance B. Sit to lying 03-Partial/moderate assistance C. Lying to sitting on side of bed 02-Substantial/maximal assistance D. Sit to stand 02-Substantial/maximal assistance E. Chair/uau-il-spipf transfer 02-Substantial/maximal assistance F. Toilet transfer 02-Substantial/maximal assistance G. Car transfer 88-Not attempted due to medical condition or safety concerns I. Walk 10 feet 02-Substantial/maximal assistance J. Walk 50 feet with two turns 88-Not attempted due to medical condition or safety concerns K. Walk 150 feet 88-Not attempted due to medical condition or safety concerns L. Walking 10 feet on uneven surfaces 88-Not attempted due to medical condition or safety concerns M. 1 step (curb) 88-Not attempted due to medical condition or safety concerns N. 4 steps 88-Not attempted due to medical condition or safety concerns O. 12 steps 88-Not attempted due to medical condition or safety concerns P. Picking up object 88-Not attempted due to medical condition or safety concerns R. Wheel 50 feet with two turns 88-Not attempted due to medical condition or safety concerns S. Wheel 150 feet 88-Not attempted due to medical condition or safety concerns - Bladder and Bowel Bladder continence Bowel continence - Endurance Fair - Balance Poor - Safety Awareness Poor CURRENT FUNC. DEFICITS: Self-Care, Mobility, Endurance, Balance, and Safety Awareness SIGNATURE PANEL: (SENIOR COMMUNICATIONS ENGINEER)
[2020-06-15] MEDS: INSULIN GLARGINE 100 UNITS/ML SQ SCH (19:59)
[2020-06-15] MEDS: TAMSULOSIN 0.4 MG SR CAP PO SCH (20:00)
[2020-06-15] MEDS: TRAZODONE 50 MG TABLET PO PRN (20:00)
[2020-06-15] MEDS: FINASTERIDE 5 MG TAB PO SCH (20:00)
[2020-06-15] MEDS: ATORVASTATIN 80 MG TAB PO SCH (20:00)
[2020-06-15] MEDS ORDERED: INSULIN GLARGINE 100 UNITS/ML SQ SCH (21:45)
[2020-06-16] MEDS: METOPROLOL XL 50 MG TAB PO SCH (05:02)
[2020-06-16 06:46] LABS: Absolute Lymphocytes (CBC) 1.7 K/uL (0.7-4.9); Basophils % 0.6 % (0-1.3); Hematocrit 27.3 % (39.6-49.0); Lymphocytes % 23.1 % (15.3-44.8); MPV 9.8 fL (7.6-11.3); RBC Red Blood Cell Count 3.79 M/uL (4.33-5.43)
[2020-06-16 06:56] LABS: Magnesium 2.2 mg/dL (1.8-2.4); Prealbumin 18.1 mg/dL (20-40)
[2020-06-16 06:58] LABS: Albumin 2.3 g/dL (3.4-5.0); Bilirubin Total 0.4 mg/dL (0.2-1.0); Phosphorus 3.3 mg/dL (2.5-4.9); Potassium 3.9 mmol/L (3.5-5.1); Protein, Total 5.8 g/dL (6.4-8.2); Uric Acid 6.1 mg/dL (3.5-7.2)
[2020-06-16 07:26] VITALS: BP 125/65; TEMP 98.8
[2020-06-16] MEDS: INSULIN -REGULAR HUMAN 50 UNIT/0.5 ML ML SQ SCH ×2 (07:30→11:30)
[2020-06-16] MEDS: ENOXAPARIN 40 MG/0.4 ML SQ SCH (07:43)
[2020-06-16] MEDS: FUROSEMIDE 20 MG TABLET PO SCH (07:44)
[2020-06-16] MEDS: CALCITROL 0.25 MCG CAP PO SCH (07:44)
[2020-06-16] MEDS: DOCUSATE NA 100 MG CAP PO SCH (07:44)
[2020-06-16] MEDS: GABAPENTIN 300 MG CAP PO SCH (07:44)
[2020-06-16] MEDS: LIDOCAINE 4% PATCH TOP SCH (07:44)
[2020-06-16] MEDS: HYDRALAZINE HCL 25 MG TABLET PO SCH (07:45)
[2020-06-16] MEDS: AMLODIPINE 5 MG TAB PO SCH (07:45)
[2020-06-16] MEDS: MEGESTROL 40 MG TAB PO SCH (07:45)
[2020-06-16] MEDS: CRANBERRY FRUIT EXTRACT 200 MG CAP PO SCH (07:45)
[2020-06-16] MEDS: VITAMIN D 5,000 UNIT CAP PO SCH (07:45)
[2020-06-16] MEDS: ESCITALOPRAM 20 MG TAB PO SCH (07:45)
[2020-06-16] MEDS: CLOPIDOGREL 75 MG TABLET PO SCH (07:45)
[2020-06-16] MEDS: GLUCERNA SHAKE 237 ML CAN PO SCH (07:46)
[2020-06-16] MEDS: PANTOPRAZOLE 40MG TABLET PO SCH (07:46)
[2020-06-16] MEDS: JUVEN PACKET PO SCH (07:47)
[2020-06-16] MEDS ORDERED: TAMSULOSIN 0.4 MG SR CAP PO SCH (08:00)
[2020-06-16] MEDS: TRAMADOL HCL 50 MG TAB PO PRN (09:07)
[2020-06-16] MEDS: FERROUS SULFATE 325 MG TAB PO SCH (12:48)
[2020-06-16] MEDS: FE SULF/FA/VIT B COMP & C TAB PO SCH (12:48)
--- NOTE | 2020-06-16 20:47 | P.PN ---
Date of Service: 06/16/20 Vital Signs Temp Pulse Resp BP Pulse Ox 98.8 F 64 18 125/65 96 06/16/20 07:26 06/16/20 07:45 06/16/20 10:07 06/16/20 07:45 06/16/20 10:07 Lab Results (last 24 hrs) 06/16/20 11:26: POC Glucose 157 H 06/16/20 07:00: POC Glucose 113 06/16/20 06:02: Sodium 140, Potassium 3.9, Chloride 108 H, Carbon Dioxide 26, BUN 36 H, Creatinine 1.74 H, Estimated GFR 40 L, Glucose 98, Uric Acid 6.1, Calcium 8.8, Phosphorus 3.3, Iron 74.0, TIBC 129 L, Transferrin 92 L, Transferrin % Sat 57.4 H, Total Bilirubin 0.4, AST 19, ALT 28, Alkaline Phosphatase 97, Serum Total Protein 5.8 L, Albumin 2.3 L, Globulin 3.5, Albumin/Globulin Ratio 0.7 L 06/16/20 06:02: Magnesium 2.2, Prealbumin 18.1 L 06/16/20 06:02: WBC 7.5 D, RBC 3.79 L, Hgb 9.1 L, Hct 27.3 L, MCV 71.8 L, MCH 24.1 L, MCHC 33.5, RDW 23.5 H, Plt Count 199, MPV 9.8, Neutrophils % 64.1, Lymphocytes % 23.1, Monocytes % 8.5, Eosinophils % 3.7, Basophils % 0.6, Absolute Neutrophils 4.8, Absolute Lymphocytes 1.7, Absolute Monocytes 0.6, Absolute Eosinophils 0.3, Absolute Basophils 0.0 Microbiology Results 06/11/20 09:50 Nasopharnyx Coronavirus COVID-19 PCR - Final 06/04/20 00:01 Catheterized Urine Barnhart Count - Final No growth. 06/04/20 00:01 Catheterized Urine - Final No growth. Assessment/ Plan: Nephrology CPS stable without CP or SOB. No acute events overnight. Doing well. Persistent weakness. Vitals, medications, blood work and imaging reviewed in the chart. NAD. MMM. Neck supple. CTA. RRR. Soft Abd. No C/C/E. No rash. AAO. Normal Speech. 05/17/20 07:47: PT 11.8, INR 1.00, APTT 26.8 05/17/20 07:47: WBC 14.5 H, Hgb 8.2 L, Hct 24.9 L, Plt Count 198 05/17/20 07:47: Sodium 142, Potassium 3.7, BUN 46 H, Creatinine 1.83 H, Glucose 150 H, Total Bilirubin 0.9, AST 33, ALT 44, Alkaline Phosphatase 67, Lipase 86 Imagings Data: EXAM DESCRIPTION: CT - Head C Spine Cap Wo Con - 05/17/2020 8:12 am TECHNIQUE: Computed axial tomography of the head and cervical spine was obtained. Coronal and sagittal reconstruction was performed Computed axial tomography of the chest, abdomen and pelvis was obtained. Contrast was not requested. All CT scans are performed using dose optimization technique as appropriate and may include automated exposure control or mA/KV adjustment according to patient size. CLINICAL HISTORY: Head and neck injury with chest and abdominal pain status post fall COMPARISON: CT chest 2018 FINDINGS: An intracranial bleed is not seen. Low-density within the right internal capsule/basal ganglia has the appearance of an old lacunar infarction. 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 The ventricles are normal in caliber. An extra-axial fluid collection is not noted. . Opacification of the left mastoid. This may indicate mastoiditis and should be correlated clinically. A cervical fracture is not seen. No dislocation is noted. Spondylosis involves the cervical spine resulting central and foraminal stenosis The evaluation of mediastinum, tiffany, vessels, solid organs and bowel are limited secondary to the lack of contrast administration. A mediastinal hematoma is not noted. A pleural effusion is not seen. A lung contusion is not present. The liver,spleen, pancreas, adrenals,kidneys and bladder the do not demonstrate a traumatic injury Right renal cyst Mild acute compression fracture T12 vertebral body. Minimal retropulsion of fracture fragment into the spinal canal. The vertebral body is approximately 87% normal height Mild acute compression fracture L3 vertebral body. Vertebral body is approximately 85% normal height Trace amount of free fluid within the pelvis IMPRESSION: 1. No acute intracranial abnormality is seen. 2. A cervical fracture is not visualized. If the patient continues have symptoms to suggest intracranial/spinal cord pathology MRI be recommended 3. No traumatic abnormality involving the chest 4. Mild acute compression fractures T12 and L3 vertebral bodies EXAM DESCRIPTION: RADChest Single View05/17/2020 8:19 am CLINICAL HISTORY: Chest pain COMPARISON: July 2019 FINDINGS: The lungs appear clear of acute infiltrate. The heart is mildly enlarged. Postsurgical changes involve the chest. IMPRESSION: No acute abnormalities displayed EXAM DESCRIPTION: RAD - Chest Single View - 06/06/2020 7:53 am CLINICAL HISTORY: increase coughing Chest pain. COMPARISON: Abdomen 1 View (KUB) dated 05/28/2020; Abdomen 1 View (KUB) dated 05/26/2020; Chest Single View dated 05/26/2020; Chest Single View dated 05/24/2020 FINDINGS: Portable technique limits examination quality. Prominent emphysematous changes are seen throughout the lungs. The heart is moderately enlarged with sternotomy wires present. No displaced fractures. IMPRESSION: COPD. Conclusions/Impression: A/ OSCAR in the setting of hypovolemia & obstructive uropathy Hypokalemia Acidosis HTN with CKD/ CHF Diastolic CHF, chronic DM II with CKD BPH with LUTS Anemia in chronic illness GI bleed. P/ Continue current POC and Medications Maintain hernandez. Follow up with urology. Follow up with GI. Plan for outpt pill cam. Transfuse PRBC as needed. Encourage nutrition as tolerated. Recommend PT as tolerated. No NSAIDs. AM labs prn. Daily weight.
--- NOTE | 2020-07-29 17:00 | R.DS ---
DISCHARGE SUMMARY FACILITY [facility] MR# [id number] NAME NAT RODRIGUEZ ADDRESS [address] [place] [address] [address]IP [address] PHONE DATE OF 1955 AGE 65 SSN# [id number] GENDER Male DEXTERITY Right-handed MARITAL STATUS RACE Unknown race ENCOUNTER PHYSICIAN Dr. Vel Murphy M.D. REFERRING DOCTOR REFERRING FACILITY [facility] PRIMARY CARE PHYSICIAN Dr. GILL DISCHARGE DIAGNOSIS: - Cardiac 09 - Cardiac Disorders (09) HEART FAILURE. 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 NURSING: - Shower allowing shower ACTIVITIES OOB only with supervision THERAPIES: - Dietary and Nutrition Adequate Nutrition Nutritional Education Nutritional Supplements HISTORY OF PRESENT ILLNESS: Pt. is a 65 yo Right-handed male of unknown race.On 05/17/2020 he was admitted to [facility] with diagnosis HEART FAILURE.His impairment category is Cardiac 09 - Cardiac Disorders ().Pre -morbidly, Pt. was independent/mod-I in Locomotion, Social Cognition, Self-Care, and Communication; a nd he had good Balance, Transfers Control, and Sphincter Control.Currently, he has deficits of Safety Awareness, Social Cognition, Transfers Control, Sphincter Control, Self-Care, Communication, and End urance.Pt. is now referred to [facility] for acute in-patient rehabilitation i n order to maximize patient's functional independence in activities of daily living, strength, ROM, a nd mobility.- Rehab Goal Patient has realistic goal of being discharged at assistance level Dago-to-sup to reside at Home with Family/Relatives. HOSPITAL COURSE: DIET - LIQUID TEXTURE: On 05/31/2020 Pt was upgraded to Regular Diet - Liquid Texture. DIET - SOLID TEXTURE: On 05/31/2020 Pt was upgraded to Regular Diet - Solid Texture. DIET TYPE: On 05/31/2020 Pt was upgraded to Regular Diet Type. TUBE FEED: On 05/31/2020 Pt was changed to N/A Tube Feed. DISCHARGE PHYSICAL EXAM - Gen Alert and awake Lying in bed No apparent distress Oriented to: person, time, and place - Skin No skin breakdown. Normacephalic - Eyes No abnormalities - ENMT No abnormalities - Neck No abnormalities No cervical adenopathy - CVS RRR - Chest No abnormalities - Resp No wheezing - Abd Soft - GI Non distended Deferred - No abnormalities - Ext No significant edema - MSK 4+/5 weakness in both lower extremities. - Neuro No focal deficits - Psych No abnormalities FUNCTIONAL STATUS: - Self-Care A. Eating 7-Ind B. Grooming 6-Dago C. Bathing 6-Dago D. Dressing - Upper 5-sup E. Dressing - Lower 5-sup F. Toileting 5-sup - Sphincter Control G. Bladder control 6-Dago H. Bowel control 6-Dago - Transfers Control I. Bed/Chair/Wheelchair 5-sup J. Toilet 5-sup K. Tub/Shower 5-sup - Locomotion L. Walk/Wheelchair (B) 5-sup M. Stairs 3-modA - Communication N. Comprehension (B) 6-Dago O. Expression (B) 6-Dago - Social Cognition P. Social Interaction 6-Dago Q. Problem Solving 6-Dago R. Memory 6-Dago - Endurance Good - Balance Fair - Safety Awareness Good QI SCORES: - Self-Care A. Eating 03-Partial/moderate assistance B. Oral hygiene 03-Partial/moderate assistance C. Toileting hygiene 02-Substantial/maximal assistance E. Shower/bathe self 02-Substantial/maximal assistance F. Upper body dressing 02-Substantial/maximal assistance G. Lower body dressing 02-Substantial/maximal assistance H. Putting on/taking off footwear 88-Not attempted due to medical condition or safety concerns - Mobility A. Roll left and right 03-Partial/moderate assistance B. Sit to lying 03-Partial/moderate assistance C. Lying to sitting on side of bed 02-Substantial/maximal assistance D. Sit to stand 02-Substantial/maximal assistance E. Chair/cxh-di-gfpxw transfer 02-Substantial/maximal assistance F. Toilet transfer 02-Substantial/maximal assistance G. Car transfer 88-Not attempted due to medical condition or safety concerns I. Walk 10 feet 02-Substantial/maximal assistance J. Walk 50 feet with two turns 88-Not attempted due to medical condition or safety concerns K. Walk 150 feet 88-Not attempted due to medical condition or safety concerns L. Walking 10 feet on uneven surfaces 88-Not attempted due to medical condition or safety concerns M. 1 step (curb) 88-Not attempted due to medical condition or safety concerns N. 4 steps 88-Not attempted due to medical condition or safety concerns O. 12 steps 88-Not attempted due to medical condition or safety concerns P. Picking up object 88-Not attempted due to medical condition or safety concerns R. Wheel 50 feet with two turns 88-Not attempted due to medical condition or safety concerns S. Wheel 150 feet 88-Not attempted due to medical condition or safety concerns - Bladder and Bowel Bladder continence Bowel continence - Endurance Fair - Balance Poor - Safety Awareness Poor DISCHARGE INSTRUCTIONS: - N/A Lovenox 40 mg sq daily, Plavix 75 mg daily. DISCHARGE PLAN, FOLLOW UP CARE PROVISIONS: - Estimated Length of Stay (days) 10. - Consensus on plan Discharge plan has been discussed with primary caregiver. Patient/Family is in agreement with the lakisha n. Primary caregiver is in agreement with the plan. - Patient/Family Goals Return home independently. - Planned Living Setting Upon Discharge Home, to live with Family/Relatives. Transitional Living. 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
== END 2020-06-16 17:13 | disposition home or self-care (01) | DRG 292 ==
LOC: 5TH 06-03 17:40
PROVIDERS: ADMIT Psychiatry & Neurology Neurology with Special Qualifications in Child Neurology; ATTEND Psychiatry & Neurology Neurology with Special Qualifications in Child Neurology
DX: I13.0 Hypertensive heart and chronic kidney disease with heart failure and stage 1 through stage 4 chronic kidney disease, or unspecified chronic kidney disease (principal); S22.080A Wedge compression fracture of T11-T12 vertebra, initial encounter for closed fracture; S32.030A Wedge compression fracture of third lumbar vertebra, initial encounter for closed fracture; S32.039A Unspecified fracture of third lumbar vertebra, initial encounter for closed fracture; N17.9 Acute kidney failure, unspecified; E87.2 Acidosis; K92.2 Gastrointestinal hemorrhage, unspecified; I50.22 Chronic systolic (congestive) heart failure; N18.30 Chronic kidney disease, stage 3 unspecified; E11.22 Type 2 diabetes mellitus with diabetic chronic kidney disease; E11.40 Type 2 diabetes mellitus with diabetic neuropathy, unspecified; E86.1 Hypovolemia; N13.9 Obstructive and reflux uropathy, unspecified; N40.1 Benign prostatic hyperplasia with lower urinary tract symptoms; E87.6 Hypokalemia; D63.8 Anemia in other chronic diseases classified elsewhere; G20 Parkinson's disease; E78.5 Hyperlipidemia, unspecified; I25.10 Atherosclerotic heart disease of native coronary artery without angina pectoris; K21.9 Gastro-esophageal reflux disease without esophagitis; J44.9 Chronic obstructive pulmonary disease, unspecified; R00.1 Bradycardia, unspecified; R63.0 Anorexia; R33.9 Retention of urine, unspecified; R53.81 Other malaise; Z68.22 Body mass index [BMI] 22.0-22.9, adult; Z95.1 Presence of aortocoronary bypass graft; Z79.4 Long term (current) use of insulin; Z20.828 Contact with and (suspected) exposure to other viral communicable diseases
CPT/HCPCS: 36415; 71045; 72100; 80048; 80053; 81001; 82040; 82947; 83540; 83735; 84100; 84134; 84466; 84550; 85025; 87086; 87088; 94640; 97110; 97112; 97116; 97161; 97530; 97535; 97542; J1650; J1815; U0002; U0003

== ENCOUNTER 2020-07-16 15:31 | Inpatient (IN) | payer OTHER ==
--- OUTSIDE RECORDS SUMMARY | 2020-07-16 15:33 | XMS REPORT | Continuity of Care Document ---
:1955 Author Organization [facility] t Address [address] [place] [address] Care Team Providers Name Role Phone Doctor Unassigned, Name Attending Clinician Unavailable Arash Cleveland DO Attending Clinician Misael BANQUET DIRECTOR, W Attending Clinician Unavailable Jimy ZAFAR, E [...] Mother Family history of [facility] [place] diabetes mellitus Physici ans Mother Family history of [facility] [place] hypertension Physicians Mother Family history of [facility] [place] malignant neoplasm Physic ians Mother Family history of [facility] [place] coronary artery Physician s disease Mother Family history of [facility] [place] Jose's disease Physici ans Father Family history of [facility] [place] diabetes mellitus Physici ans Father Family history of [facility] [place] hypertension Physicians Father Family history of [facility] [place] coronary artery Physician s disease Sister Family history of [facility] [place] malignant neoplasm Physic ians Brother Family history of [facility] [place] pancreatic cancer Physici ans Social History Smoking Status Start Date Stop Date Source Ex-smoker (finding) [place] [facility] Physicians Medications Ordered Filled Start Stop [...] TABLET ity of Tablet Tablet 00:00: TWICE [place] DAILY. Physici ans Furosemide Furosemide 2019-0 Yes M.A. Q0.5D TAKE 1 Univers 40 MG Oral 40 MG Oral 3-05 TABLET i ty of Tablet Tablet 00:00: TWICE [place] 00 DAILY. Physici ans Nicotine 14 Nicotine 14 2019-0 Yes M.A. QD APPLY 1 Univers MG/24HR MG/24HR 3-05 PATCH ity of Transdermal Transdermal 00:00: DAILY [place] Patch 24 Patch 24 00 DIRECTED. Ph [...] ity of Tablet Tablet 00:00: DAILY. [place] Physici ans HumuLIN N HumuLIN N 2019-0 [...] Fe) MG (65 Fe) MG 00:00: TIMES [place] Oral Tablet Oral Tablet 00 DAILY WITH Physici FOOD. ans Aspirin 81 Aspirin 81 2019-0 Yes M.A. QD CHEW AND Univers MG Oral MG Oral 3-05 SWALLOW 1 ity of Tablet Tablet 00:00: TABLET [place] Chewable Chewable 00 DAILY. Physi ci ans Nitroglycer Nitroglycer 2019- Yes M.A. PLACE 1 Univers in 0.4 MG in 0.4 MG 3-05 TABLET ity of Sublingual Sublingual 00:00: UNDER THE [place] Tablet Tablet 00 TONGUE Physici Sublingual Sublingual EVERY 5 ans MINUTES FOR UP TO 3 DOSES NEEDED FOR CHEST PAIN.CALL 911 IF PAIN PERSISTS. HumuLIN R HumuLIN R Yes M.A. inject 12 Univers 100 UNIT/ML 100 UNIT/ML 3-05 units ity of Injection Injection 00:00: under the [place] Solution Solution 00 skin 2 Physi ci times ans daily before breakfast and dinner. Vital Signs Vital Name Observation Time Observation Value Comments Source Systolic blood 2019-09-29 155 mm[Hg] Location: [facility] 16:23:00 Position: [place] Physician s Sitting Diastolic blood 2019-09-29 68 mm[Hg] Location: [facility] 16:23:00 Position: [place] Physician s Sitting Body height 2019-09-29 72 [in_us] [facility] 16:23:00 [place] [facility] s Weight 2019-09-29 163 [lb_av] [facility] 16:23:00 [place] [facility] s Body mass index 2019-09-29 22.11 kg/m2 [place] o f (BMI) [Ratio] 16:23:00 [place] Physicia ns Body temperature 2019-09-29 97.9 [degF] Method: Oral [facility] 16:23:00 [place] [facility] s Heart Rate 2019-09-29 75 /min [facility] 16:23:00 [place] Physician s Procedures Procedure Date / Time Performing Source Performed Clinician [B] CMP 2019-09-28 [facility] 00:00:00 [place] [facility] [B] CBC 2019-09-28 [facility] 00:00:00 [place] [facility] History of Cyst excision [facility] [place] [facility] History of Debridement [facility] [place] [facility] History of Hand Surgery Universi ty [facility] Physicians History of Knee arthroscopy Univ ersity [facility] Physicians History of University of Esophagogastroduodenoscopy [place] [facility] History of Colonoscopy [facility] Physicians History of Surgical removal of U niversity of foreign body [place] [facility] History of CABG [facility] Physicians Encounters Start End Encounter Admission Attending Care Care Encounter Source Date/Time Date/Time Type Type Clinicians Facility Department ID 2020-07-04 2020-07-04 Orders Doctor ALPHONSE [id number] 00:00:00 00:00:00 Only Unassigned, HERNANDO [id number] [place] [facility] [id number] 2020-05-03 2020-05-03 Emergency [facility] 1.2.840.114 [id number] 14:26:00 16:25:00 Christa Isaac [id number] [place] [id number] [place] [id number] 2020-05-03 2020-05-03 Orders Doctor ALPHONSE 1.2.840.114 [id number] 00:00:00 00:00:00 Only Unassigned, HERNANDO [id number] [place] [facility] [id number] 2020-05-03 2020-05-03 Patient Keanu Douglasanders 1.2.840.114 [id number] 00:00:00 00:00:00 Outreach Hugh Mcnally [id number] [place] [id number] 2020-02-05 2020-02-05 Patient Trupti Ahn Jatin 1.2.840.114 [id number] 00:00:00 00:00:00 Outreach E Mcnally [id number] [place] [id number] 2020-01-28 2020-01-28 Patient Trupti Ahnanders 1.2.840.114 [id number] 00:00:00 00:00:00 Outreach E Mcnally [id number] [place] [id number] 2020-01-18 2020-01-18 Patient Keanu Douglasanders 1.2.840.114 [id number] 00:00:00 00:00:00 Outreach Hugh Mcnally [id number] [place] [id number] 2020-01-08 2020-01-08 Patient Jatin Douglas 1.2.840.114 [id number] 00:00:00 00:00:00 Outreach Hugh Whitey [id number] [place] [id number] 2020-01-07 2020-01-07 Patient Trupti Ahn 1.2.840.114 [id number] 00:00:00 00:00:00 Outreach Vee Whitey [id number] [place] [id number] 2019-12-22 2019-12-22 Patient Trupti Ahn 1.2.840.114 [id number] 00:00:00 00:00:00 Outreach Vee Whitey [id number] [place] [id number] 2019-12-16 2019-12-16 Patient Trupti Ahn 1.2.840.114 [id number] 00:00:00 00:00:00 Outreach Vee Whitey [id number] [place] [id number] 2019-12-11 2019-12-11 Patient Jatin Douglas 1.2.840.114 [id number] 00:00:00 00:00:00 Outreach Hugh Mcnally [id number] [place] [id number] 403 2019-12-10 2019-12-10 Patient Jatin Douglas 1.2.840.114 [id number] 00:00:00 00:00:00 Outreach Hugh Whitey [id number] [place] [id number] 2019-12-03 2019-12-03 Patient Jatin Douglas 1.2.840.114 [id number] 00:00:00 00:00:00 Outreach Hugh Whitey [id number] [place] [id number] 2019-12-02 2019-12-02 Patient Trupti Ahn 1.2.840.114 [id number] 00:00:00 00:00:00 Outreach Vee Whitey [id number] [place] [id number] 2019-12-01 2019-12-01 Patient Jatin Douglas 1.2.840.114 [id number] 00:00:00 00:00:00 Outreach Hugh Mcnally [id number] [place] [id number] 2019-11-26 2019-11-26 Patient Jatin Douglas 1.2.840.114 [id number] 00:00:00 00:00:00 Outreach Hugh Mcnally [id number] [place] [id number] 2019-11-25 2019-11-25 Patient Trupti Ahn 1.2.840.114 [id number] 16:38:53 16:38:57 Outreach Vee Whitey [id number] [place] [id number] 2019-11-20 2019-11-20 Patient Trupti Ahn 1.2.840.114 [id number] 00:00:00 00:00:00 Outreach Vee Whitey [id number] [place] [id number] 2019-11-16 2019-11-16 Orders Doctor ALPHONSE 1.2.840.114 [id number] 00:00:00 00:00:00 Only Unassigned, HERNANDO [id number] [place] [facility] [id number] [id number] 2019-11-11 2019-11-11 Patient Jatin Douglas 1.2.840.114 [id number] 00:00:00 00:00:00 Outreach uHgh Mcnally [id number] [place] [id number] 2019-10-27 2019-10-27 Telephone Balaji [facility] [id number] 00:00:00 00:00:00 [facility] [id number] [place] 4.2.7.2.686 [facility] [id number] nal [address] 2019-09-29 2019-09-29 Appointmen ELMO [facility] [id number] Univers 15:00:00 15:00:00 t; IGOR BORREGO M.D. [facility] Arabella COSTA M.D. Failure - Physic i [place] ans Results This patient has no known results.
--- OUTSIDE RECORDS SUMMARY | 2020-07-16 15:35 | XMS REPORT | Summary of Care ---
:1955 Author Organization [facility] - Health Address [address] [place] [address] Care Team Providers Name Role Phone Ra Carpio Primary Care Provider Raegan Yadav DO Psychology Lecturer Encounter Details Date Type Department Care Team Description 07/04/2020 Orders Only [facility] Doctor Unassigned, No [address] [facility] [address] [address] [place] [address] Allergies Active Allergy Reactions Severity Noted Date Comments Zjxpcvjcxyvgr-At-Zabaklhfqbh Hallucinations 08/18/2019 Spironolactone Other - See comments 10/28/2019 K 6.2 documented as of this encounter (statuses as of 07/05/2020) Medications Medication Sig Dispensed Refills Start Date [...] neuropathy, Ischemic cardiomyopathy, Coronary artery disease involving circle coronary artery of circle heart without angina pectoris, Systolic congestive heart [...] as of this encounter (statuses as of 07/05/2020) Active Problems Problem Noted Date Hypoglycemia 10/27/2019 [...] Added automatically from request for nick ramu [id number] Dysphagia, unspecified type 03/25/2018 Overview: Added automatically from request for nick ramu [id number] Atrial flutter 10/15/2017 Chronic diastolic congestive heart failure 10/14/2017 HTN (hypertension) 10/14/2017 HLD (hyperlipidemia) 10/14/2017 Type 2 diabetes mellitus without complication 10/15/19 18 Pneumonia 10/13/2017 NSTEMI (non-ST elevated myocardial infarction) 018 History of [place] (myocardial infarction) 09/12/2017 Foreign body in foot, left 09/03/2017 Left foot infection 09/02/2017 Diabetic foot infection 08/30/2017 Right foot infection 08/30/2017 Foot abscess, right 08/30/2017 Infection 08/30/2017 documented as of this encounter (statuses as of 07/05/2020) Immunizations Name Administration Dates Next Due Pneumococcal [...] I will submit an application to the [facility]igent Program. I will complete CASEBOOK application. 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 Medicare A & B t [address] [id number] KAVIN LOMBARDI [id number] documented as of this encounter
[2020-07-16] MEDS ORDERED: NA CHLORIDE 0.9% 250 ML ONE (16:33)
[2020-07-16 16:47] LABS: Absolute Lymphocytes (CBC) 0.5 K/uL (0.7-4.9); Basophils % 0.4 % (0-1.3); Lymphocytes % 3.2 % (15.3-44.8); MPV 10.7 fL (7.6-11.3); RBC Red Blood Cell Count 3.87 M/uL (4.33-5.43)
[2020-07-16 16:48] LABS: Protime INR 1.06
[2020-07-16 17:04] LABS: Albumin 2.9 g/dL (3.4-5.0); Bilirubin Direct 0.1 mg/dL (0-0.2); Bilirubin Total 0.5 mg/dL (0.2-1.0); Magnesium 1.9 mg/dL (1.8-2.4); Potassium 4.2 mmol/L (3.5-5.1); Protein, Total 6.8 g/dL (6.4-8.2); Troponin (Emerg Dept Use Only) 0.02 ng/mL (0.0-0.045)
--- NOTE | 2020-07-16 17:18 | RAD REPORT ---
EXAM DESCRIPTION: Roger Single View07/16/2020 5:00 pm CLINICAL HISTORY: cough COMPARISON: May 2020 FINDINGS: The lungs appear clear of acute infiltrate. The heart is mildly enlarged. Pacemaker leads are in place. IMPRESSION: No acute abnormalities displayed
[2020-07-16] MEDS: CEFTRIAXONE/SWI 1gm 1 GM/10 ML SYR IV SCH (18:00)
[2020-07-16 18:20] LABS: Urine Bacteria LOADED /HPF (NONE SEEN); Urine RBC 20-50 /HPF (NONE SEEN); Urine Yeast PRESENT (NONE SEEN); Urine Yeast with Hyphae PRESENT
[2020-07-16 18:22] LABS: Urine Blood 3+ (NEG); Urine Glucose NEGATIVE (NEG); Urine Protein 3+ (NEG); Urine Specific Gravity 1.015 (1.005-1.030)
[2020-07-16] MEDS ORDERED: CEFTRIAXONE/SWI 1gm 1 GM/10 ML SYR ONE (18:29)
--- NOTE | 2020-07-16 18:58 | EDPHYS ---
Physician Documentation [facility] Name: Mumtaz Anderson Age: 65 yrs Sex: Male : 1955 Arrival Date: 07/16/2020 Time: 15:47 Bed 2 Private MD: ED Physician Homer Dang HPI: 07/16 16:30 This 65 yrs old Male presents to ER via EMS with complaints of Fever, Urinary cp Problem. 16:30 The patient reports fever, that was measured at 102 degrees Fahrenheit. Onset: The cp symptoms/episode began/occurred today. Associated signs and symptoms: Pertinent positives: cough, general weakness. 16:30 reports noticing cloudy urine and "pus" draining from hernandez. cp Historical: - Allergies: 15:50 Nexium D; sv - PMHx: 15:50 Diabetes - IDDM; Hypertension; CHF; COPD; Seizures; Anemia; CAD; Myocardial infarction; sv - PSHx: 15:50 Heart stents; CABG; Knee surgery; left hip; foot; hand; sv - Immunization history:: Flu vaccine status is unknown. - Social history:: Smoking status: Patient denies any tobacco usage or history of. ROS: 16:30 Constitutional: Negative for fever, poor PO intake. cp 16:30 Cardiovascular: Negative for chest pain. cp 16:30 Respiratory: Positive for cough, Negative for shortness of breath, wheezing. 16:30 Abdomen/GI: Negative for abdominal pain, nausea, vomiting, and diarrhea. 16:30 : Positive for foul smelling urine. 16:30 Neuro: Positive for weakness, Negative for altered mental status, headache. 16:30 All other systems are negative. Exam: 16:30 ECG was reviewed by the Attending Physician. cp 16:35 Constitutional: The patient appears in no acute distress, alert, awake, cp non-diaphoretic, non-toxic, well developed, frail. 16:35 Head/Face: Normocephalic, atraumatic. cp 16:35 Eyes: Periorbital structures: appear normal, Conjunctiva: normal, no exudate, no injection, Sclera: no appreciated abnormality, Lids and lashes: appear normal, bilaterally. 16:35 ENT: External ear(s): are unremarkable, Nose: is normal, Mouth: Lips: dry, Oral mucosa: moist, Posterior pharynx: Airway: no evidence of obstruction, patent. 16:35 Neck: ROM/movement: is normal, is supple, without pain, no range of motions limitations. 16:35 Chest/axilla: Inspection: normal, Palpation: is normal, no crepitus, no tenderness. 16:35 Cardiovascular: Rate: normal, Rhythm: regular, Edema: is not appreciated, JVD: is not appreciated. 16:35 Respiratory: the patient does not display signs of respiratory distress, Respirations: normal, no use of accessory muscles, no retractions, labored breathing, is not present, Breath sounds: are clear throughout, no decreased breath sounds, no stridor, no wheezing. 16:35 Abdomen/GI: Inspection: abdomen appears normal, Bowel sounds: active, all quadrants, Palpation: soft, in all quadrants, mild abdominal tenderness, in the suprapubic area, rebound tenderness, is not appreciated, involuntary guarding, is not appreciated. 16:35 Skin: no rash present. 16:35 Neuro: Orientation: to person, place \\T\\ time. Mentation: is normal, Motor: moves all fours, strength is normal. Vital Signs: 15:47 BP 131 / 66; Pulse 88; Resp 16; Temp 98.8(O); Pulse Ox 97% ; sv 16:30 BP 138 / 63; Pulse 86; Resp 14; Pulse Ox 98% ; sv 17:15 BP 132 / 60; Pulse 80; Resp 16; Pulse Ox 98% ; sv 18:00 BP 118 / 68; Pulse 75; Resp 18; Pulse Ox 99% ; sv 19:03 BP 104 / 57; Pulse 77; Resp 18; Pulse Ox 99% ; sv 20:11 BP 122 / 61; Pulse 73; Resp 18; Pulse Ox 99% ; mg2 MDM: 15:50 Patient medically screened. stanley 18:55 Physician consultation: DR Rascon, hospitalist, will see patient in ED shortly. cp 19:00 Data reviewed: vital signs, nurses notes, lab test result(s), EKG, radiologic studies, cp plain films. 19:00 Differential diagnosis: pneumonia UTI, sepsis. Test interpretation: by ED physician or cp midlevel provider: ECG. 07/16 16:11 Order name: Basic Metabolic Panel; Complete Time: 17:27 cp 07/16 17:27 Interpretation: Normal except: GLUC 210; BUN 81; CRE 1.95; GFR 35. cp 07/16 16:11 Order name: CBC with Diff cp 07/16 18:03 Interpretation: Normal except: WBC 16.4; RBC 3.87; HGB 8.7; HCT 27.0; MCV 69.8; MCH cp 22.4; RDW 21.7; BEST% 87.9; LYM% 3.2; NEUT A 14.4; LYMA 0.5. 07/16 16:11 Order name: LFT's; Complete Time: 17:27 cp 07/16 16:11 Order name: Magnesium; Complete Time: 17:27 cp 07/16 16:11 Order name: NT PRO-BNP; Complete Time: 17:27 cp 07/16 16:11 Order name: PT-INR; Complete Time: 17:27 cp 07/16 16:11 Order name: Troponin (emerg Dept Use Only); Complete Time: 17:27 cp 07/16 16:11 Order name: Lactate; Complete Time: 17:27 cp 07/16 16:11 Order name: Procalcitonin; Complete Time: 18:02 cp 07/16 18:02 Interpretation: Abnormal: Procalcitonin 0.37. cp 07/16 16:40 Order name: Urine Microscopic Only; Complete Time: 18:50 cp 07/16 18:50 Interpretation: Normal except: UWBC TNTC; URBC 20-50; UBACT LOADED; YEAST PRESENT; BUD cp PRESENT. 07/16 18:06 Order name: Urine Dipstick--Ancillary (enter results); Complete Time: 18:50 eb 07/16 18:21 Order name: Urine Culture [facility] 07/16 19:20 Order name: Basic Metabolic Panel [facility] 07/16 19:20 Order name: Basic Metabolic Panel [facility] 07/16 16:11 Order name: XRAY Chest (1 view); Complete Time: 17:27 cp 07/16 16:11 Order name: EKG; Complete Time: 16:13 cp 07/16 16:11 Order name: Cardiac monitoring; Complete Time: 16:30 cp 07/16 16:11 Order name: EKG - Nurse/Tech; Complete Time: 16:30 cp 07/16 16:11 Order name: IV Saline Lock; Complete Time: 16:40 cp 07/16 16:11 Order name: Labs collected and sent; Complete Time: 16:40 cp 07/16 16:11 Order name: O2 Per Protocol; Complete Time: 16:40 cp 07/16 19:20 Order name: Consistent Carb (ADA) 2000 Higinio EDMS 07/16 19:20 Order name: CBC with Automated Diff EDMS 07/16 19:20 Order name: CBC with Automated Diff EDMS 07/16 19:48 Order name: COVID-19 mw2 07/16 20:13 Order name: CORONAVIRUS EDMS 07/16 21:13 Order name: SARS-COV-2 RT PCR EDMS 07/16 21:33 Order name: CBC Smear Scan EDMS 07/16 16:11 Order name: O2 Sat Monitoring; Complete Time: 16:40 cp 07/16 16:40 Order name: Urine Dipstick-Ancillary (obtain specimen); Complete Time: 18:06 cp EC:30 Rate is 87 beats/min. Rhythm is regular. MT interval is prolonged at 226 msec. QRS cp interval is prolonged at 140 msec. QT interval is normal. T waves are Inverted in lead aVL. Interpreted by me. Reviewed by me. Administered Medications: 16:39 Drug: NS 0.9% 250 ml Route: IV; Rate: calculated rate; Site: right forearm; sv 17:05 Follow up: Response: No adverse reaction; IV Status: Completed infusion; IV Intake: sv 250ml 18:35 Drug: Rocephin 1 grams Route: IV; Rate: calculated rate; Site: right forearm; sv 18:38 Follow up: Response: No adverse reaction; IV Status: Completed infusion; IV Intake: 10mlsv Disposition: 19:30 Chart complete. 07/17 07:23 Co-signature as Attending Physician, Homer Dang MD I agree with the assessment and the [facility] plan of care. Disposition: 07/16/20 18:57 Hospitalization ordered by Matthew Michelle for Inpatient Admission. Preliminary diagnosis is Urinary tract infection, site not specified. - Bed requested for Telemetry/MedSurg (Inpatient). - Status is Inpatient Admission. mg2 - Condition is Stable. - Problem is new. - Symptoms have improved. Signatures: Dispatcher [employer] [facility] Tnig Mike RN RN sv Anderson, Corey, MD MD cha Pena, Laura, RN RN lp1 Page, Homer, PA PA cp Gardose, Kaveh, RN RN mg2 Corrections: (The following items were deleted from the chart) 07/16 20:31 18:57 Hospitalization Ordered by Matthew Michelle DO for Inpatient Admission. Preliminary lp1 diagnosis is Urinary tract infection, site not specified. Bed requested for Telemetry/MedSurg (Inpatient). Status is Inpatient Admission. Condition is Stable. Problem is new. Symptoms have improved. cp 21:39 20:31 07/16/2020 18:57 Hospitalization Ordered by Matthew Michelle DO for Inpatient mg2 Admission. Preliminary diagnosis is Urinary tract infection, site not specified. Bed requested for Telemetry/MedSurg (Inpatient). Status is Inpatient Admission. Condition is Stable. Problem is new. Symptoms have improved. lp1
--- NOTE | 2020-07-16 18:58 | ER ---
Nurse's Notes [facility] Name: Mumtaz Anderson Age: 65 yrs Sex: Male : 1955 Arrival Date: 07/16/2020 Time: 15:47 Bed 2 Private MD: Diagnosis: Urinary tract infection, site not specified Presentation: 07/16 15:47 Chief complaint: EMS states: called out for "spike in fever" and "puss coming out of sv his penis around the catheter." Family at the bedside reported yesterday he had blood tinged urine noted in the hernandez bag and then today cleared up but then noted "puss around the catheter." Pt had hernandez placed here after they found he had back fractures and was admitted. Coronavirus screen: Client denies travel out of the [place] in the last 14 days. At this time, the client does not indicate any symptoms associated with coronavirus-19. Ebola Screen: No symptoms or risks identified at this time. Initial Sepsis Screen: Does the patient meet any 2 criteria? No. Patient's initial sepsis screen is negative. Does the patient have a suspected source of infection? No. Patient's initial sepsis screen is negative. Risk Assessment: Do you want to hurt yourself or someone else? Patient reports no desire to harm self or others. Onset of symptoms was July 15, 2020. 15:47 Method Of Arrival: EMS: [facility] 15:47 Acuity: VIDAL 3 sv Triage Assessment: 15:47 General: Appears in no apparent distress. uncomfortable, slender, Behavior is calm, sv cooperative, appropriate for age. Pain: Complains of pain in back. Neuro: Level of Consciousness is awake, alert, obeys commands, Oriented to person, place, time, situation. Respiratory: Airway is patent Respiratory effort is even, unlabored, Respiratory pattern is regular, symmetrical. : Hernandez in place to gravity drainage. Derm: Skin is normal. Historical: - Allergies: 15:50 Nexium D; sv - PMHx: 15:50 Diabetes - IDDM; Hypertension; CHF; COPD; Seizures; Anemia; CAD; Myocardial infarction; sv - PSHx: 15:50 Heart stents; CABG; Knee surgery; left hip; foot; hand; sv - Immunization history:: Flu vaccine status is unknown. - Social history:: Smoking status: Patient denies any tobacco usage or history of. Screenin:50 Abuse screen: Denies threats or abuse. Denies injuries from another. Nutritional sv screening: No deficits noted. Tuberculosis screening: No symptoms or risk factors identified. Fall Risk Fall in past 12 months (25 points). No secondary diagnosis (0 pts). No IV (0 pts). Ambulatory Aid- None/Bed Rest/Nurse Assist (0 pts). Gait- Normal/Bed Rest/Wheelchair (0 pts) Mental Status- Oriented to own ability (0 pts). Total Walter Fall Scale indicates Low Risk Score (25-44 pts). Fall prevention measures have been instituted. Side Rails Up X 2 Placed close to Nursing Station Frequent Obs/Assesments occuring Family Present and informed to notify staff if they need to leave bedside As available Patient and Family Educated on Fall Prevention Program and strategies. Assessment: 16:30 Reassessment: Patient appears in no apparent distress at this time. No changes from sv previously documented assessment. Patient and/or family updated on plan of care and expected duration. Pain level reassessed. Patient is alert, oriented x 3, equal unlabored respirations, skin warm/dry/pink. 16:30 Reassessment: Hernandez bag changed out. sv 18:35 Reassessment: Patient appears in no apparent distress at this time. No changes from sv previously documented assessment. Patient and/or family updated on plan of care and expected duration. Pain level reassessed. Patient is alert, oriented x 3, equal unlabored respirations, skin warm/dry/pink. 21:26 Reassessment: floor nurse will call me back to take report. mg2 Vital Signs: 15:47 BP 131 / 66; Pulse 88; Resp 16; Temp 98.8(O); Pulse Ox 97% ; sv 16:30 BP 138 / 63; Pulse 86; Resp 14; Pulse Ox 98% ; sv 17:15 BP 132 / 60; Pulse 80; Resp 16; Pulse Ox 98% ; sv 18:00 BP 118 / 68; Pulse 75; Resp 18; Pulse Ox 99% ; sv 19:03 BP 104 / 57; Pulse 77; Resp 18; Pulse Ox 99% ; sv 20:11 BP 122 / 61; Pulse 73; Resp 18; Pulse Ox 99% ; mg2 ED Course: 15:47 Patient arrived in ED. sv 15:47 Rashid, Ting, RN is Primary Nurse. sv 15:48 Homer Colon PA is PHCP. cp 15:49 Triage completed. sv 15:50 Homer Dang MD is Attending Physician. stanley 15:50 Arm band placed on. sv 15:51 Patient has correct armband on for positive identification. Placed in gown. Bed in low sv position. Call light in reach. Side rails up X2. Adult w/ patient. Pulse ox on. NIBP on. Door closed. Head of bed elevated. 15:58 Awaiting ED provider evaluation. sv 16:30 Patient has correct armband on for positive identification. pvc monitor on. Pulse mh5 ox on. NIBP on. 16:30 EKG done, by ED staff, reviewed by Homer Dang MD. mh5 16:30 Inserted saline lock: 20 gauge in right forearm, using aseptic technique. Blood sv collected. Flushed right forearm with 5 ml normal saline. 17:00 XRAY Chest (1 view) In Process Unspecified. EDMS 18:04 Urine collected: clean catch specimen, cloudy. sv 18:56 Matthew Michelle DO is Hospitalizing Provider. cp 19:00 Report given to Myra ZAFAR and Ector ZAFAR. sv 19:29 Primary Nurse role handed off by Ting Mike RN sv 19:50 Kaveh Castle RN is Primary Nurse. mg2 20:12 No provider procedures requiring assistance completed. Patient admitted, IV remains in mg2 place. Administered Medications: 16:39 Drug: NS 0.9% 250 ml Route: IV; Rate: calculated rate; Site: right forearm; sv 17:05 Follow up: Response: No adverse reaction; IV Status: Completed infusion; IV Intake: sv 250ml 18:35 Drug: Rocephin 1 grams Route: IV; Rate: calculated rate; Site: right forearm; sv 18:38 Follow up: Response: No adverse reaction; IV Status: Completed infusion; IV Intake: 10mlsv Intake: 17:05 IV: 250ml; Total: 250ml. sv 18:38 IV: 10ml; Total: 260ml. sv Output: 16:30 Urine: 200ml (Hernandez); Total: 200ml. sv 18:05 Urine: 100ml (Hernandez); Total: 300ml. sv Outcome: 18:57 Decision to Hospitalize by Provider. cp 21:38 Admitted to Med/surg accompanied by tech, via stretcher, room 231, with chart, Report mg2 called to ANDRADE De Souza 21:38 Condition: stable 21:38 Instructed on the need for admit, Demonstrated understanding of instructions. 21:39 Patient left the ED. mg2 Signatures: Dispatcher [employer] EDTing Gomez, Homer Coulter RN, MD MD cha Page, Corey, PA PA [facility] Kaveh Castle RN RN mg2
--- NOTE | 2020-07-16 19:21 | P.HP ---
Certification for Inpatient With expected LOS: >2 Midnights Practitioner: I am a practitioner with admitting privileges, knowledge of patient current condition, hospital course, and medical plan of care. Services: Services provided to patient in accordance with Admission requirements found in Title 42 Section 412.3 of the Code of Federal Regulations Patient History Date of Service: 07/16/20 Reason for admission: fever, UTI. History of Present Illness: 65 y o male pt with hx of fall in May 2020 with T12 and L3 vertebrae fracture for which he was placed on hernandez catheter in Jun 2020. He also has a hx of CAD s/p CABG, DM type 2, Hyperlipidemia, CKD stage 3, BPH admitted for management of suspected sepsis due to UTI. He had presented with fever and lethargy. No issues with diarrhea, nausea/vomiting or headache. He denied any runny nose or sore throat. He does have a cough and sputum production. Labs done in the Ed revealed elevated WBC of 16k, UA concerning for UTI and elevated creatinine of 1.95. He was started on IV ceftriaxone and was admitted for work up of sepsis deemed due to UTI. Allergies spironolactone Adverse Reaction (Verified 05/18/20 16:02) Anaphylaxis "nexia d" Allergy (Mild, Uncoded 04/04/19 00:26) Unknown Home Medications: Aspirin [Adult Aspirin Regimen] 81 mg PO BEDTIME 06/04/20 Atorvastatin Calcium [Lipitor] 80 mg PO BEDTIME 06/04/20 Clopidogrel Bisulfate [Plavix*] 75 mg PO DAILY 06/04/20 Doxazosin [Cardura*] 2 mg PO BEDTIME 06/04/20 Escitalopram [Lexapro*] 20 mg PO DAILY 06/04/20 Ferrous Sulfate [Ferrous Sulfate*] 325 mg PO BID 06/04/20 Furosemide [Lasix*] 40 mg PO BIDL 06/04/20 Metformin ER [Glucophage ER*] 500 mg PO BID 06/04/20 Metoprolol Succinate 50 mg PO DAILY 06/04/20 Amlodipine [Norvasc*] 5 mg PO DAILY #30 tab 06/16/20 Calcitrol [Rocaltrol*] 0.5 mcg PO DAILY #30 cap 06/16/20 Cholecalciferol (Vitamin D3) [Vitamin D 5,000 IU Cap*] 5,000 unit PO DAILY cap 06/16/20 Cranberry Fruit Extract 400 mg PO BID #120 cap 06/16/20 Ferrous Sulfate [Ferrous Sulfate*] 325 mg PO 1200 #120 tab 06/16/20 Insulin Glargine Human [Lantus*] 8 units SQ BEDTIME #10 ml 06/16/20 Lidocaine 4% Patch [Lidoderm 5% Patch*] 2 patch TOP DAILY patch 06/16/20 Ondansetron [Zofran (Odt)*] 4 mg PO Q6H PRN #45 tab 06/16/20 Tramadol HCl [Ultram] 50 mg PO Q4HP PRN #60 tablet 06/16/20 - Past Medical/Surgical History Diabetic: Yes -: Diabetes mellitus type 2, insulin-dependent -: CAD -: Hypertension -: Hyperlipidemia -: COPD -: Tobacco abuse -: Knee surgery -: I&D lower right buttock -: hiatal hernia repair -: I and D to the left foot -: 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 He lives with his son. - Family History Father -: Heart disease, Hypertension, Lung disease, GI disease, Diabetes, Cancer, Other (see notes) Notes: parkinson's disease Mother -: Heart disease, Hypertension, Diabetes, Cancer Sister -: Cancer - Social History Alcohol use: No CD- Drugs: No Caffeine use: Yes Review of Systems General: Fever, Weakness Eyes: Unremarkable Respiratory: Unremarkable Cardiovascular: Unremarkable Gastrointestinal: Abdominal Pain (lower abd) Musculoskeletal: Unremarkable Lymphatics: Unremarkable Physical Examination - Vital Signs Temperature: 102.5 F Blood Pressure: 104/59 Pulse: 82 - Physical Exam General: Alert, Oriented x3, Cachectic HEENT: Atraumatic, Normocephalic Neck: Supple Respiratory: Clear to auscultation bilaterally Cardiovascular: Regular rate/rhythm, Normal S1 S2 Gastrointestinal: Soft and benign, Other (scaphoid abdomen.) Musculoskeletal: No swelling Integumentary: No rashes Neurological: Normal speech, Cranial nerves 3-12 intact Urinary: Hernandez catheter External genitalia: No edema - Studies Laboratory Data (last 24 hrs) 07/16/20 16:30: PT 12.5, INR 1.06 07/16/20 16:30: WBC 16.4 H, Hgb 8.7 L, Hct 27.0 L, Plt Count 173 07/16/20 16:30: Sodium 136, Potassium 4.2, BUN 81 H, Creatinine 1.95 H, Glucose 210 H, Magnesium 1.9, Total Bilirubin 0.5, AST 19, ALT 38, Alkaline Phosphatase 93 Assessment and Plan - Plan 1.Sepsis-Suspected based on presentation with fever and UA that is highly concerning for UTI. Empiric antibiotic have been staretd. IV fluid for volume repletion has been started. we will monitor vitals and volume status closely. 2.UTI-Pt's UA is highly concerning for bacterial/fungal infection. At this time we think this is catheter associated UTI. We will give one time dose of fluconazole and continue ceftriaxone 1g daily dose pending urine culture finalization. Hernandez catheter to be changed. 3.Diabetes type 2-SSI and Carb restricted diet to be continued. 4.Hyperlipidemia-We will continue statin therapy. 5.CKD stage 3- Creatinine is 1.95 and BUN is elevated at 86. we will dose meds for eGFR and avoid nephrotoxins for now. 6.Anemia- Hb is 8.7. we will monitor closely. 7.CAD- has had cardiac bypass surgery in the past. Antiplatelet meds to be continued. - Advance Directives Does patient have a Living Will: No Does patient have a Durable POA for Healthcare: Yes
[2020-07-16] MEDS ORDERED: FLUCONAZOLE 100mg IVPB 100 MG/50 ML BAG IV ONE (20:00)
[2020-07-16 21:31] LABS: Blood Morphology Comment NOTED (NOT SEEN); Platelet Estimate ADEQ; White Blood Cell Scan OK (OK)
[2020-07-16 21:32] LABS: Anisocytosis 1+; Burr Cells FEW; Ovalocytes SLIGHT; Poikilocytosis 1+; Teardrop Cell FEW
[2020-07-16] MEDS: NA CHLORIDE 0.9% 1,000 ML IV SCH (22:49)
[2020-07-16] MEDS ORDERED: FLUCONAZOLE 200mg IVPB 100 MG/50 ML BAG IV ONE (23:00)
[2020-07-16 23:15] VITALS: BMI 16.4
[2020-07-16] MEDS: INSULIN -REGULAR HUMAN 50 UNIT/0.5 ML ML SQ SCH (23:16)
[2020-07-16] MEDS ORDERED: FLUCONAZOLE 200mg IVPB 200 MG/100 ML BAG IV ONE (23:17)
[2020-07-17] MEDS: ACETAMINOPHEN 325 MG TABLET PO PRN ×2 (00:35→13:35)
[2020-07-17] MEDS: HEPARIN 5000 UNIT/ML 1 ML VIAL SQ SCH ×2 (00:36→09:51)
[2020-07-17 05:58] LABS: Absolute Lymphocytes (CBC) 1.5 K/uL (0.7-4.9); Basophils % 0.4 % (0-1.3); Lymphocytes % 9.1 % (15.3-44.8); MPV 10.6 fL (7.6-11.3)
[2020-07-17 05:59] LABS: Potassium 3.7 mmol/L (3.5-5.1)
[2020-07-17 06:23] LABS: Hematocrit 20.8 % (39.6-49.0)
[2020-07-17] MEDS: INSULIN -REGULAR HUMAN 50 UNIT/0.5 ML ML SQ SCH ×4 (07:30→21:57)
[2020-07-17] MEDS: NA CHLORIDE 0.9% 1,000 ML IV SCH (09:52)
[2020-07-17] MEDS ORDERED: NA CHLORIDE 0.9% 250 ML ONE (11:22)
[2020-07-17] MEDS ORDERED: ONDANSETRON 4 MG (ODT) TAB PO PRN (11:34)
[2020-07-17] MEDS ORDERED: GLUCAGON 1 MG/VIAL IM PRN (11:34)
[2020-07-17] MEDS ORDERED: TRAMADOL HCL 50 MG TAB PO PRN (11:34)
--- NOTE | 2020-07-17 11:58 | P.PN ---
Subjective Date of Service: 07/17/20 Chief Complaint: fever, UTI. Patient hemoglobin dropped to 6.7. reports patient was bleeding from the anterior abdominal site of heparin subcu injection. Urine is in the urine bag is clear. Patient was febrile this morning. Physical Examination - Vital Signs Temperature: 97.6 F Blood Pressure: 116/57 Pulse: 64 Respirations: 16 Pulse Ox (%): 97 - Physical Exam General: Alert, In no apparent distress Respiratory: Clear to auscultation bilaterally, Normal air movement Cardiovascular: No edema, Regular rate/rhythm, Normal S1 S2 Gastrointestinal: Normal bowel sounds, Soft and benign, Non-distended, No tenderness Musculoskeletal: No swelling, No tenderness Integumentary: No rashes Neurological: Normal speech, Cranial nerves 3-12 intact, Other (Paraplegic) Urinary: Holcomb catheter - Studies Laboratory Data (last 24 hrs) 07/16/20 16:30: PT 12.5, INR 1.06 07/16/20 16:30: WBC 16.4 H, Hgb 8.7 L, Hct 27.0 L, Plt Count 173 07/16/20 16:30: Sodium 136, Potassium 4.2, BUN 81 H, Creatinine 1.95 H, Glucose 210 H, Magnesium 1.9, Total Bilirubin 0.5, AST 19, ALT 38, Alkaline Phosphatase 93 Assessment And Plan - Current Problems (Diagnosis) (1) Urinary tract infection Current Visit: Yes Status: Acute (2) Chronic indwelling Holcomb catheter Current Visit: Yes Status: Acute (3) Acute blood loss anemia Current Visit: Yes Status: Acute (4) Cardiomyopathy Current Visit: No Status: Acute (5) Hypertension Onset Date: 11/05/16 Current Visit: No Status: Chronic Qualifiers: Hypertension type: essential hypertension Qualified Code(s): I10 - [place] l (primary) hypertension (6) History of GI bleed Current Visit: Yes Status: Acute (7) Sepsis Current Visit: Yes Status: Acute - Plan Urine culture is growing Gram negative rods. Continue current antibiotics for UTI. Follow urine culture. Obtain blood culture given leukocytosis and fever. Transfuse 1 unit PRBC for hemoglobin less than 7. Discontinue heparin subcu. Resume ASA and Plavix for cardiomyopathy. Patient is currently normotensive and given urosepsis will hold anti- hypertensives until SBP is greater than 140. Resume Lantus insulin. Hold metformin given IV contrast use within the last 24 hrs. Continue insulin sliding scale. Resume gabapentin.
[2020-07-17] MEDS: CALCITONIN NASAL SPRAY 200 IU/DOSE NAS SCH (12:00)
[2020-07-17] MEDS: ESCITALOPRAM 20 MG TAB PO SCH (12:00)
[2020-07-17] MEDS ORDERED: D50W 25 GM/50 ML VIAL IV PRN (13:24)
[2020-07-17] MEDS: CALCITROL 0.25 MCG CAP PO SCH (13:35)
[2020-07-17] MEDS: FERROUS SULFATE 325 MG TAB PO SCH ×2 (13:36→20:23)
[2020-07-17] MEDS: LIDOCAINE 4% PATCH TOP SCH (13:36)
--- NOTE | 2020-07-17 15:28 | EKG ---
Test Date: 2020-07-16 Test Time: 16:22:40 Humanities Department Chair: KOBI MEASUREMENT RESULTS: Intervals: Rate: 87 VA: 226 QRSD: 140 QT: 444 QTc: 534 [place]: P: 65 VA: 226 QRS: -57 T: 223 INTERPRETIVE STATEMENTS: Sinus rhythm with 1st degree AV block Possible Left atrial enlargement Left axis deviation Nonspecific intraventricular block Cannot rule out Septal infarct, age undetermined T wave abnormality, consider inferior ischemia Abnormal ECG Compared to ECG 05/17/2020 12:27:32 Left-axis deviation now present Myocardial infarct finding now present T-wave abnormality now present Possible ischemia now present Left bundle-branch block no longer present Electronically Signed On 07-17-20 15:26:30 [employer] MANAGER by Martin Reyes
[2020-07-17] MEDS ORDERED: PNEUMOCOCCAL VACCINE 0.5 ML IMVAC ONE (16:00)
[2020-07-17] MEDS ORDERED: INFLUENZA VACCINE (for 3y+) 0.5 ML DOSE IMVAC ONE (16:00)
[2020-07-17] MEDS: CEFTRIAXONE/SWI 1gm 1 GM/10 ML SYR IV SCH (17:11)
[2020-07-17 17:55] LABS: Hematocrit 26.5 % (39.6-49.0)
[2020-07-17] MEDS ORDERED: CEFTRIAXONE 1 GM/NS 50 ML 1 GM/50 ML BAG IV SCH (18:00)
[2020-07-17] MEDS: ATORVASTATIN 80 MG TAB PO SCH (20:17)
[2020-07-17] MEDS: GABAPENTIN 300 MG CAP PO SCH (20:19)
[2020-07-17] MEDS: TRAZODONE 150 MG TAB PO SCH (20:28)
[2020-07-17] MEDS ORDERED: TRAZODONE 150 MG TAB PO SCH (21:00)
[2020-07-17] MEDS: ASPIRIN EC 81 MG TAB PO SCH (21:00)
[2020-07-17] MEDS: INSULIN GLARGINE 100 UNITS/ML SQ SCH (21:58)
[2020-07-18] MEDS ORDERED: DERMABOND SKIN ADHESIVE TOP ONE (02:10)
[2020-07-18] MEDS: NA CHLORIDE 0.9% 1,000 ML IV SCH ×2 (04:04→14:23)
[2020-07-18 05:39] VITALS: O2SAT 98
[2020-07-18 06:09] LABS: Absolute Lymphocytes (CBC) 1.6 K/uL (0.7-4.9); Basophils % 0.4 % (0-1.3); Lymphocytes % 10.8 % (15.3-44.8); RBC Red Blood Cell Count 3.27 M/uL (4.33-5.43)
[2020-07-18 06:21] LABS: Potassium 4.1 mmol/L (3.5-5.1)
[2020-07-18] MEDS: INSULIN -REGULAR HUMAN 50 UNIT/0.5 ML ML SQ SCH ×4 (07:30→19:59)
[2020-07-18 08:01] LABS: Protime INR 1.03
[2020-07-18] MEDS: ESCITALOPRAM 20 MG TAB PO SCH (09:13)
[2020-07-18] MEDS: FERROUS SULFATE 325 MG TAB PO SCH ×3 (09:14→20:00)
[2020-07-18] MEDS: CLOPIDOGREL 75 MG TABLET PO SCH (09:14)
[2020-07-18] MEDS: LIDOCAINE 4% PATCH TOP SCH (09:15)
[2020-07-18] MEDS: CALCITROL 0.25 MCG CAP PO SCH (11:58)
[2020-07-18] MEDS: CALCITONIN NASAL SPRAY 200 IU/DOSE NAS SCH (11:59)
--- NOTE | 2020-07-18 16:23 | P.PN ---
Subjective Date of Service: 07/18/20 Chief Complaint: fever, UTI. Posttransfusion hemoglobin was up to 8.5 and then dropped to 7.6. Per report patient bled from heparin subcutaneous injection site on the anterior abdomen from yesterday. He continued to bleed despite pressure dressing and Surgicel application. The bleeding had ceased at the time I examined him this morning. Urine is in the urine bag is clear. No fever since yesterday. Physical Examination - Vital Signs Temperature: 97.1 F Blood Pressure: 147/70 Pulse: 73 Respirations: 18 Pulse Ox (%): 96 - Physical Exam General: Alert, In no apparent distress Neck: Supple, JVD not distended Respiratory: Clear to auscultation bilaterally, Normal air movement Cardiovascular: No edema, Regular rate/rhythm, Normal S1 S2 Capillary refill: <2 Seconds Gastrointestinal: Normal bowel sounds, Soft and benign, Non-distended, No tenderness Musculoskeletal: No swelling, No tenderness Integumentary: No rashes Neurological: Normal speech, Other (Paraplegic) Urinary: Holcomb catheter - Studies Microbiology Data (last 24 hrs): 07/16/20 18:00 Clean Catch Urine Roulette Count - Final >100,000 CFU/ML. 07/16/20 18:00 Clean Catch Urine - Final Klebsiella Pneumoniae Assessment And Plan - Current Problems (Diagnosis) (1) Urinary tract infection Current Visit: Yes Status: Acute (2) Chronic indwelling Holocmb catheter Current Visit: Yes Status: Acute (3) Acute blood loss anemia Current Visit: Yes Status: Acute (4) Cardiomyopathy Current Visit: No Status: Acute (5) Hypertension Onset Date: 11/05/16 Current Visit: No Status: Chronic Qualifiers: Hypertension type: essential hypertension Qualified Code(s): I10 - Essential (primary) hypertension (6) History of GI bleed Current Visit: Yes Status: Acute (7) Sepsis Current Visit: Yes Status: Acute (8) Skin hemorrhage Current Visit: Yes Status: Acute - Plan Urine culture is growing Klebsiella pneumonia sensitive to several antibiotics. Continue current IV Rocephin. Blood cultures: No growth to date Transfuse 1 unit PRBC p.r.n. for hemoglobin less than 7. Continue to monitor hemoglobin. SCD for DVT prophylaxis. Aspirin and Plavix on hold given persistent skin leeding. Patient is currently hypertensive. Resume home antihypertensives. Resume Lantus insulin. Hold metformin given IV contrast use within the last 24 hrs. Continue insulin sliding scale. Continue gabapentin.
[2020-07-18] MEDS: CEFTRIAXONE/SWI 1gm 1 GM/10 ML SYR IV SCH (17:23)
[2020-07-18] MEDS: INSULIN GLARGINE 100 UNITS/ML SQ SCH (19:59)
[2020-07-18] MEDS: GABAPENTIN 300 MG CAP PO SCH (20:00)
[2020-07-18] MEDS: ASPIRIN EC 81 MG TAB PO SCH (20:00)
[2020-07-18] MEDS: TRAZODONE 150 MG TAB PO SCH (20:01)
[2020-07-18] MEDS: ATORVASTATIN 80 MG TAB PO SCH (20:01)
[2020-07-18] MEDS ORDERED: DOXAZOSIN 2 MG TAB PO SCH (21:00)
[2020-07-19] MEDS: NA CHLORIDE 0.9% 1,000 ML IV SCH (05:22)
[2020-07-19 05:35] LABS: Absolute Lymphocytes (CBC) 1.7 K/uL (0.7-4.9); Basophils % 0.8 % (0-1.3); Hematocrit 25.6 % (39.6-49.0); Lymphocytes % 16.8 % (15.3-44.8); MPV 9.7 fL (7.6-11.3); RBC Red Blood Cell Count 3.63 M/uL (4.33-5.43)
[2020-07-19 06:07] LABS: Potassium 3.9 mmol/L (3.5-5.1)
[2020-07-19] MEDS: INSULIN -REGULAR HUMAN 50 UNIT/0.5 ML ML SQ SCH ×2 (07:30→10:54)
[2020-07-19] MEDS: ESCITALOPRAM 20 MG TAB PO SCH (08:34)
[2020-07-19] MEDS: CLOPIDOGREL 75 MG TABLET PO SCH (08:35)
[2020-07-19] MEDS: FERROUS SULFATE 325 MG TAB PO SCH ×2 (08:35→11:12)
[2020-07-19] MEDS: LIDOCAINE 4% PATCH TOP SCH (08:36)
[2020-07-19] MEDS ORDERED: METOPROLOL XL 50 MG TAB PO SCH (09:00)
[2020-07-19] MEDS: CALCITROL 0.25 MCG CAP PO SCH (11:11)
[2020-07-19] MEDS: CALCITONIN NASAL SPRAY 200 IU/DOSE NAS SCH (11:12)
[2020-07-19 11:28] LABS: Hematocrit 25.6 % (39.6-49.0)
[2020-07-19] MEDS ORDERED: AMLODIPINE 5 MG TAB PO SCH (12:00)
[2020-07-19] MEDS ORDERED: CRANBERRY FRUIT EXTRACT 200 MG CAP PO SCH (12:00)
[2020-07-19] MEDS ORDERED: [UNRECOGNIZED DRUG - OTHER] PO SCH (12:00)
[2020-07-19 13:00] VITALS: BP 152/69; TEMP 97
[2020-07-19] MEDS ORDERED: PNEUMOCOCCAL VACCINE 0.5 ML IMVAC ONE (14:00)
[2020-07-19] MEDS ORDERED: INFLUENZA VACCINE (for 3y+) 0.5 ML DOSE IMVAC ONE (14:00)
[2020-07-19] MEDS ORDERED: GLUCERNA SHAKE 237 ML CAN PO SCH (21:00)
--- NOTE | 2020-07-19 22:52 | P.DS ---
Admission Date: 07/16/20 Discharge Date: 07/19/20 Disposition: DC HOME/HOME HEALTH CARE Discharge Condition: GOOD Reason for Admission: fever, UTI. Procedures: CXR ( 07/16): no acute abnormalities displayed. heart is mildly enlarged. pace maker leads are present Problem List UTI, cystitis chronic indwelling hernandez catheter acute blood loss anemia Cardiomyopathy HTN h/o GI bleed Brief History of Present Illness: 65yo M, PMH: CAD s/p CABG, DM2, CKD3, BPH, recent fall with T12/L3 vertebrae fracture and hernandez insertion in June 2020. He presented to ED with fever and lethargy. Found to have leukocytosis, OSCAR, and UA suggestive of UTI. Hospital Course: Patient was treated with IV Rocephin. Urine culture grew Klebsiella pneumoniae. His hernandez catheter was exchanged the morning of 07/17. He was feeling back to his baseline and doing well. He was discharged home with 7 days of Augmentin. Hospitalization was complicated due to bleeding from heparin subq injection sites. He did undergo transfusion of 1uPRBC, and then H/H were trended and fairly stable after bleeding stopped. His renal function also continued to improve, with Cr: 1.2 on discharge. He is to f/u with his PCP in the next week, neurologist/neurosurgeon as scheduled, and urologist as scheduled. He is to resume home health, home PT as previously set up. Vital Signs/Physical Exam: Temp Pulse Resp BP Pulse Ox 97 F 65 18 152/69 H 98 07/19/20 12:00 07/19/20 12:00 07/19/20 12:00 07/19/20 12:00 07/19/20 12:00 General: Alert, In no apparent distress, Oriented x3 HEENT: Sclerae nonicteric Respiratory: Clear to auscultation bilaterally Cardiovascular: No edema, Regular rate/rhythm Gastrointestinal: Soft and benign, No tenderness Musculoskeletal: No tenderness Integumentary: No rashes Neurological: Normal speech, Normal affect Laboratory Data at Discharge: WBC 10.0 K/uL (4.3-10.9) D 07/19/20 05:17 Hgb 8.2 g/dL (13.6-17.9) L 07/19/20 11:20 Hct 25.6 % (39.6-49.0) L 07/19/20 11:20 Plt Count 205 K/uL (152-406) D 07/19/20 05:17 PT 12.2 SECONDS (9.5-12.5) 07/18/20 07:32 INR 1.03 07/18/20 07:32 APTT 28.2 SECONDS (24.3-36.9) 07/18/20 07:32 Sodium 143 mmol/L (136-145) 07/19/20 05:17 Potassium 3.9 mmol/L (3.5-5.1) 07/19/20 05:17 BUN 54 mg/dL (7-18) H 07/19/20 05:17 Creatinine 1.21 mg/dL (0.55-1.3) 07/19/20 05:17 Glucose 106 mg/dL (74-106) 07/19/20 05:17 Magnesium 1.9 mg/dL (1.8-2.4) 07/16/20 16:30 Total Bilirubin 0.5 mg/dL (0.2-1.0) 07/16/20 16:30 AST 19 U/L (15-37) 07/16/20 16:30 ALT 38 U/L (12-78) 07/16/20 16:30 Alkaline Phosphatase 93 U/L (45-117) 07/16/20 16:30 Home Medications: Aspirin [Adult Aspirin Regimen] 81 mg PO BEDTIME 06/04/20 Atorvastatin Calcium [Lipitor] 80 mg PO BEDTIME 06/04/20 Doxazosin [Cardura*] 2 mg PO BEDTIME 06/04/20 Ferrous Sulfate [Ferrous Sulfate*] 325 mg PO BID 06/04/20 Furosemide [Lasix*] 40 mg PO BIDL 06/04/20 Metformin ER [Glucophage ER*] 500 mg PO BID 06/04/20 Metoprolol Succinate 50 mg PO DAILY 06/04/20 Ferrous Sulfate [Ferrous Sulfate*] 325 mg PO 1200 #120 tab 06/16/20 Lidocaine 4% Patch [Lidoderm 5% Patch*] 2 patch TOP DAILY patch 06/16/20 Ondansetron [Zofran (Odt)*] 4 mg PO Q6H PRN #45 tab 06/16/20 Tramadol HCl [Ultram] 50 mg PO Q4HP PRN #60 tablet 06/16/20 Acetaminophen [Tylenol Extra Strength] 500 mg PO Q4H PRN 07/16/20 Amlodipine [Norvasc*] 5 mg PO 1200 07/16/20 Calcitonin [Miacalcin Nasal Tony*] 1 spray IH 1200 07/16/20 Calcitrol [Rocaltrol*] 0.5 mcg PO 1200 07/16/20 Clopidogrel Bisulfate [Plavix*] 75 mg PO DAILY 07/16/20 Cranberry Conc/C/Bacill Coag [Cranberry Tablet] 1 tab PO 1200 07/16/20 Escitalopram [Lexapro*] 30 mg PO DAILY 07/16/20 Gabapentin 300 mg PO BEDTIME 07/16/20 Insulin Glargine Human [Lantus*] 8 units SQ BEDTIME 07/16/20 Trazodone [Desyrel*] 150 mg PO BEDTIME 07/16/20 Amoxicillin/Potassium Clav [Augmentin 875-125 Tablet] 1 each PO BID 7 Days #14 tablet 07/19/20 New Medications: Amoxicillin/Potassium Clav [Augmentin 875-125 Tablet] 1 each PO BID 7 Days #14 tablet Patient Discharge Instructions: follow up with PCP within 1 week. Follow up with your motor driver, urologist, and neurologist in the next few weeks. You had a urinary infection, on discharge you will continue 7 more days of Augmentin twice a day. Diet: ADA Activity: Fall precautions Followup: Aidan Rios MD [Primary Care Provider] - 1 Week (Follow up in office in 1 week. Call to schedule an appointment. ) Time spent managing pt's care (in minutes): 40
== END 2020-07-19 16:19 | disposition home health service (06) | DRG 698 ==
LOC: ER 15:31 → ERHOLD 19:10 → 2ND 21:20
PROVIDERS: ADMIT Family Medicine; ATTEND Hospitalist
DX: T83.518A Infection and inflammatory reaction due to other urinary catheter, initial encounter (principal); A41.9 Sepsis, unspecified organism; R64 Cachexia; D62 Acute posthemorrhagic anemia; Z68.1 Body mass index [BMI] 19.9 or less, adult; I43 Cardiomyopathy in diseases classified elsewhere; N17.9 Acute kidney failure, unspecified; N39.0 Urinary tract infection, site not specified; I13.10 Hypertensive heart and chronic kidney disease without heart failure, with stage 1 through stage 4 chronic kidney disease, or unspecified chronic kidney disease; N18.30 Chronic kidney disease, stage 3 unspecified; E11.22 Type 2 diabetes mellitus with diabetic chronic kidney disease; J44.9 Chronic obstructive pulmonary disease, unspecified; I25.10 Atherosclerotic heart disease of native coronary artery without angina pectoris; E78.5 Hyperlipidemia, unspecified; I25.2 Old myocardial infarction; B96.1 Klebsiella pneumoniae [K. pneumoniae] as the cause of diseases classified elsewhere; R23.3 Spontaneous ecchymoses; Z95.5 Presence of coronary angioplasty implant and graft; Z88.8 Allergy status to other drugs, medicaments and biological substances; Z95.1 Presence of aortocoronary bypass graft; Z23 Encounter for immunization; Z79.82 Long term (current) use of aspirin; Z79.02 Long term (current) use of antithrombotics/antiplatelets; Z79.4 Long term (current) use of insulin; Z79.899 Other long term (current) drug therapy; Z20.822 Contact with and (suspected) exposure to COVID-19
CPT/HCPCS: 36415; 71045; 80048; 80076; 81003; 81015; 82947; 83605; 83735; 83880; 84145; 84484; 85014; 85018; 85025; 85610; 85730; 86850; 86900; 86901; 87040; 87077; 87086; 87088; 87186; 90471; 90732; 93005; 96365; 96375; 99285; J0696; J1450; J1644; J1815; J7030; J7050; P9016; Q2035; U0003

== ENCOUNTER 2020-10-22 00:23 | Emergency (ER) | payer OTHER ==
[2020-10-22] MEDS ORDERED: ROCURONIUM 50 MG/5 ML VIAL IV ONE (00:24)
[2020-10-22] MEDS ORDERED: ETOMIDATE 20 MG/10 ML VIAL IV ONE (00:24)
--- OUTSIDE RECORDS SUMMARY | 2020-10-22 00:28 | XMS REPORT | Continuity of Care Document ---
:1955 Author Organization [facility] t Address [address] [place] [address] Care Team Providers Name Role Phone Blanca JONES Attending Clinician Doctor Unassigned, Name Attending Clinician Unavailable Arash Cleveland DO Attending Clinician Misael MITCHELL, W Attending Clinician Unavailable Jimy [...] ents Source Name Type Date Date Clinician Anextuss Propensi Active Hallucinatio Univers TB12 ty to ns ity of adverse [place] reaction Physici s to ans drug (finding ) Family History Family Member Diagnosis Comments Start Date Stop Date Source Mother Family history of Univers ity of [place] coronary artery Physician s disease Mother Family history of [facility] [place] Mes[place]'s disease Physici ans Mother Family history of [facility] [place] diabetes mellitus Physici ans Mother Family history of [facility] [place] hypertension Physicians Mother Family history of [facility] malignant neoplasm Physic ians Father Family history of [facility] [place] diabetes mellitus Physici ans Father Family history of [facility] [place] hypertension Physicians Father Family history of [facility] [place] coronary artery Physician s disease Sister Family history of [facility] [place] malignant neoplasm Physic ians Brother Family history of [facility] [place] pancreatic cancer Physici ans Social History Smoking Status Start Date Stop Date Source Ex-smoker (finding) [place] o [facility] Physicians Medications Ordered Filled Start Stop Current [...] ity of Tablet Tablet 00:00: TWICE [place] 00 DAILY. Physici ans Furosemide Furosemide 2019-0 [...] TABLET ity of Tablet Tablet 00:00: DAILY. 00 Physici ans HumuLIN N HumuLIN N [...] Source Systolic blood 2019-09-29 155 mm[Hg] Location: [facility] 16:23:00 Position: [place] Physician s Sitting Diastolic blood 2019-09-29 68 mm[Hg] Location: [facility] 16:23:00 Position: [place] Physician s Sitting Body height 2019-09-29 72 [in_us] University 16:23:00 [place] Physician s Weight 2019-09-29 163 [lb_av] [facility] :23:00 [place] Physician s Body mass index 2019-09-29 22.11 kg/m2 [place] f (BMI) [Ratio] 16:23:00 [place] Physicmt ns Body temperature 2019-09-29 97.9 [degF] Method: Oral University 16:23:00 [place] Physician s Heart Rate 2019-09-29 75 /min [facility] 16:23:00 [place] Phys[facility] s Procedures Procedure Date / Time Performing Source Performed Clinician [B] CMP 2019-09-28 [facility] 00:00:00 [place] [facility] [B] CBC 2019-09-28 [facility] 00:00:00 [place] [facility] History of Cyst excision [facility] it[facility] Physicians History of Debridement [facility] Physicians History of Hand Surgery Universi ty [facility] Physicians History of Knee arthroscopy Univ [facility] Physicians History of University of Esophagogastroduodenoscopy [place] [facility] History of Colonoscopy [facility] History of Surgical removal of U niversity of foreign body [place] [facility] History of CABG [facility] Physicians Encounters Start End Encounter Admission Attending Care Care Encounter Source Date/Time Date/Time Type Type Clinicians Facility Department ID 2020-08-02 2020-08-02 Letter Blanca CUNHA [id number] 00:00:00 00:00:00 (Out) , HERNANDO [id number] [facility] 4.2.7.2.686 i [id number] 2020-07-04 2020-07-04 Orders Doctor ALPHONSE [id number] 00:00:00 00:00:00 Only UnassignedHERNANDO [id number] [place] [id number] [id number] 2020-05-03 2020-05-03 Emergency [facility] 1.2.840.114 [id number] 14:26:00 16:25:00 Christa Isaac [id number] [place] 4.2.7.2.686 [place] [id number] [id number] 2020-05-03 2020-05-03 Orders Doctor ALPHONSE 1.2.840.114 [id number] 00:00:00 00:00:00 Only Unassigned, HERNANDO [id number] [place]2.7.2.686 [id number] [id number] 2020-05-03 2020-05-03 Patient Jatin Douglas 1.2.840.114 [id number] 00:00:00 00:00:00 Outreach Hugh Mcnally [id number] [place] 4.2.7.2.686 [id number] 2020-02-05 2020-02-05 Patient Trupti Ahn 1.2.840.114 [id number] 00:00:00 00:00:00 Outreach Vee Mcnally [id number] [place] 4.2.7.2.686 [id number] 403 2020-01-28 2020-01-28 Patient Trupti Ahn 1.2.840.114 [id number] 00:00:00 00:00:00 Outreach E Mcnally [id number] [place] 4.2.7.2.686 [id number] 2020-01-18 2020-01-18 Patient Jatin Douglas 1.2.840.114 [id number] 00:00:00 00:00:00 Outreach Hugh Whitey [id number] [place] 4.2.7.2.686 [id number] 2020-01-08 2020-01-08 Patient Jatin Douglas 1.2.840.114 [id number] 00:00:00 00:00:00 Outreach Hugh Whitey [id number] [place] 4.2.7.2.686 [id number] 2020-01-07 2020-01-07 Patient Trupti Ahn 1.2.840.114 [id number] 00:00:00 00:00:00 Outreach E Mcnally 350.1.13.10 [place] 4.2.7.2.686 [id number] 2019-12-22 2019-12-22 Patient Trupti Ahn 1.2.840.114 [id number] 00:00:00 00:00:00 Outreach Vee Mcnally 350.1.13.10 [place] 4.2.7.2.686 [id number] 2019-12-16 2019-12-16 Patient Trupti Ahn 1.2.840.114 [id number] 00:00:00 00:00:00 Outreach Vee Mcnally 350.1.13.10 [place] 4.2.7.2.686 [id number] 2019-12-11 2019-12-11 Patient Jatin Douglas 1.2.840.114 [id number] 00:00:00 00:00:00 Outreach Hugh Whitey 350.1.13.10 [place] 4.2.7.2.686 [id number] 403 2019-12-10 2019-12-10 Patient Jatin Douglas 1.2.840.114 [id number] 00:00:00 00:00:00 Outreach Hugh Whitey 350.1.13.10 [place] 4.2.7.2.686 [id number] 403 2019-12-03 2019-12-03 Patient Jatin Douglas 1.2.840.114 [id number] 00:00:00 00:00:00 Outreach Hugh Whitey 350.1.13.10 [place] 4.2.7.2.686 [id number] 2019-12-02 2019-12-02 Patient Trupti Ahn 1.2.840.114 [id number] 00:00:00 00:00:00 Outreach Vee Whitey 350.1.13.10 [place] 4.2.7.2.686 [id number] 403 2019-12-01 2019-12-01 Patient Jatin Douglas 1.2.840.114 [id number] 00:00:00 00:00:00 Outreach Hugh Whitey 350.1.13.10 [place] 4.2.7.2.686 [id number] 2019-11-26 2019-11-26 Patient Jatin Douglas 1.2.840.114 [id number] 00:00:00 00:00:00 Outreach Hugh Whitey 350.1.13.10 [place] 4.2.7.2.686 [id number] 403 2019-11-25 2019-11-25 Patient Trupti Ahn 1.2.840.114 [id number] 16:38:53 16:38:57 Outreach Vee Whitey 350.1.13.10 [place] 4.2.7.2.686 [id number] 403 2019-11-20 2019-11-20 Patient Trupti Ahn 1.2.840.114 [id number] 00:00:00 00:00:00 Outreach Vee Mcnally 350.1.13.10 [place] 4.2.7.2.686 [id number] 2019-11-16 2019-11-16 Orders Doctor CUNHA 1.2.840.114 [id number] 00:00:00 00:00:00 Only Unassigned, HERNANDO 350.1.13.10 [place] [facility] 4.2.7.2.686 [id number] 2019-11-11 2019-11-11 Patient Jatin Douglas 1.2.840.114 [id number] 00:00:00 00:00:00 Outreach Hugh Mcnally 350.1.13.10 [place] 4.2.7.2.686 [id number] 2019-10-27 2019-10-27 Telephone Balaji MDMARLEEN [id number] 00:00:00 00:00:00 Grzegorz Knapp [facility] 350.1.13.10 [place] 4.2.7.2.686 [facility] [id number] nal [address] 2019-09-29 2019-09-29 Appointmen ELMO [facility] for [id number] Univers 15:00:00 15:00:00 t; IGOR BORREGO M.D. Advanced ity of Arabella COSTA M.D. Failure - Physic i [place] ans Results This patient has no known results.
[2020-10-22] MEDS ORDERED: ONDANSETRON 4 MG/2 ML VIAL ONE (00:44)
[2020-10-22] MEDS ORDERED: NA CHLORIDE 0.9% 500 ML ONE ×2 (00:44→01:48)
[2020-10-22] MEDS ORDERED: RSI MEDICATION KIT IV ONE (00:47)
[2020-10-22 00:48] LABS: Absolute Lymphocytes (CBC) 0.5 K/uL (0.7-4.9); Basophils % 0.2 % (0-1.3); Lymphocytes % 6.5 % (15.3-44.8); MPV 10.9 fL (7.6-11.3); RBC Red Blood Cell Count 3.05 M/uL (4.33-5.43)
[2020-10-22 00:52] LABS: Protime INR 1.22
[2020-10-22 00:54] LABS: Hematocrit 20.3 % (39.6-49.0)
[2020-10-22 01:02] LABS: ALT/SGPT 46 U/L (12-78); AST/SGOT 25 U/L (15-37); Albumin 3.1 g/dL (3.4-5.0); Alkaline Phosphatase 74 U/L (45-117); Amylase 86 U/L (25-115); BUN Blood Urea Nitrogen 82 mg/dL (7-18); Bicarbonate 27 mmol/L (21-32); Bilirubin Direct 0.2 mg/dL (0-0.2); Bilirubin Total 0.4 mg/dL (0.2-1.0); CKMB Creatine Kinase MB 1.9 ng/mL (0.3-3.6); Creatine Phosphokinase 43 U/L (39-308); Glucose Level 96 mg/dL (74-106); Lipase 72 U/L (73-393); Potassium 4.1 mmol/L (3.5-5.1); Protein, Total 6.8 g/dL (6.4-8.2); Sodium Level 140 mmol/L (136-145); Troponin (Emerg Dept Use Only) < 0.02 ng/mL (0.0-0.045)
[2020-10-22 01:03] LABS: Urine Blood Trace-intact (Negative); Urine Glucose Negative (Negative); Urine Protein 3+ (Negative); Urine pH 6.5 (5.0-7.0)
[2020-10-22] MEDS ORDERED: ACETAMINOPHEN 650MG/RECT SUPP PR ONE (01:05)
[2020-10-22] MEDS ORDERED: PANTOPRAZOLE 40 MG INJ ONE (01:15)
[2020-10-22 01:16] LABS: Anisocytosis 2+; Blood Morphology Comment NOTED (NOT SEEN); Burr Cells 1+; Hypochromasia 1+; Ovalocytes 1+; Platelet Estimate ADEQ; Target Cells 1+; White Blood Cell Scan OK (OK)
[2020-10-22] MEDS ORDERED: NA CHLORIDE 0.9% 250 ML ONE (01:16)
[2020-10-22] MEDS ORDERED: NA CHLORIDE 0.9% 1,000 ML ONE (01:16)
[2020-10-22 01:33] LABS: Arterial Blood Carboxyhemoglob 1.4 % (0-1.5); Blood O2 Saturation 99.3 % (92-98.5)
[2020-10-22] MEDS ORDERED: propofoL 1,000 MG/100 ML VIAL IV ONE (01:45)
[2020-10-22] MEDS ORDERED: METRONIDAZOLE 500mg IVPB 500 MG/100 ML BAG IV ONE (01:50)
[2020-10-22] MEDS ORDERED: Levofloxacin500mg IV 500 MG/100 ML BAG IV ONE (01:50)
[2020-10-22 02:17] LABS: Urine Bacteria LOADED /HPF (NONE SEEN); Urine Mucus 2+ /HPF (NONE SEEN); Urine RBC <5 /HPF (NONE SEEN)
--- NOTE | 2020-10-22 04:48 | ER ---
Nurse's Notes [facility] Name: Mumtaz Anderson Age: 65 yrs Sex: Male : 1955 Arrival Date: 10/22/2020 Time: 00:31 Bed 3 Private MD: Diagnosis: Upper GI Bleed;Bilateral Pneumonia;Respiratory Failure;Altered Mental Status;Urinary tract infection, site not specified Presentation: 10/22 00:25 Chief complaint: EMS states: was called out for vomiting of coffee ground emesis today. mg2 been lethargic and oxygen saturation about 70 % RA. Coronavirus screen: Client denies travel out of the [place] in the last 14 days. Ebola Screen: No symptoms or risks identified at this time. Initial Sepsis Screen: Does the patient meet any 2 criteria? Altered Mental Status. HR > 90 bpm. Yes. Initial Sepsis Screen: Does the patient have a suspected source of infection? Yes: Acute abdominal pain. Risk Assessment: Do you want to hurt yourself or someone else? Patient reports no desire to harm self or others. Onset of symptoms was October 22, 2020. 00:25 Method Of Arrival: EMS: [facility] mg2 00:25 Acuity: VIDAL 1 mg2 Historical: - Allergies: 00:41 Nexium D; mg2 00:41 Spironolactone; mg2 - PMHx: 00:41 Anemia; CAD; CHF; COPD; Diabetes - IDDM; Hypertension; Myocardial infarction; Seizures; mg2 - PSHx: 00:41 CABG; mg2 - Immunization history:: Flu vaccine status is unknown. - Social history:: Smoking status: unknown. Screenin:49 Abuse screen: Denies threats or abuse. Denies injuries from another. Nutritional mg2 screening: No deficits noted. Tuberculosis screening: No symptoms or risk factors identified. Fall Risk IV access (20 points). Assessment: 00:25 General: Appears emaciated, Behavior is unresponsive. Pain: Unable to use pain scale. mg2 Patient is unresponsive. Neuro: Level of Consciousness is lethargic. Cardiovascular: Capillary refill is > 3 seconds. Respiratory: Airway is patent Respiratory effort is shallow, Respiratory pattern is regular. GI: Pt is actively vomiting coffee ground. : No signs and/or symptoms were reported regarding the genitourinary system. EENT: No signs and/or symptoms were reported regarding the EENT system. Derm: Skin is intact, Skin is pale, Skin temperature is warm. 00:25 Musculoskeletal: Capillary refill is > 3 seconds. mg2 01:11 Reassessment: lactate 2.9 candy form laboratory called, ED provider aware. rr5 03:32 Reassessment: FIRST UNIT OF BLOOD STARTED. rv 04:45 Reassessment: No changes from previously documented assessment. mg2 06:55 Reassessment: report given to EMS. patient is intubated, with IV Access all in good mg2 condition. Vital Signs: 00:25 BP 94 / 58; Pulse 118; Resp 10; Pulse Ox 58% on R/A; Weight 45.36 kg; mg2 00:31 BP 94 / 58; Pulse 104; Resp 12 S; Pulse Ox 91% on Non-rebreather mask; Weight 56.7 kg bb (R); Height 6 ft. 0 in. (182.88 cm) (R); 00:33 BP 112 / 58; Pulse 119; Resp 28 A; Pulse Ox 90% on BVM; bb 00:35 Pulse Ox 98% on 100% FiO2 ETT vent; bb 00:40 BP 126 / 61; Pulse 111; Resp 16 A; Pulse Ox 100% on 100% FiO2 ETT vent; bb 00:46 Temp 100.7(C); mg2 01:32 BP 138 / 63; Pulse 104; Resp 16; Temp 99(C); Pulse Ox 100% on ETT vent; mg2 02:48 BP 92 / 57; Pulse 94; Resp 17; Temp 98.4; Pulse Ox 100% on 100% FiO2 ETT vent; mg2 03:52 BP 112 / 59; Pulse 89; Resp 16; Temp 99.7; Pulse Ox 100% on R/A; mg2 04:45 BP 117 / 66; Pulse 87; Resp 17; Temp 100.2; Pulse Ox 100% on 100% FiO2 ETT vent; mg2 00:31 Body Mass Index 16.95 (56.70 kg, 182.88 cm) bb ED Course: 00:30 Inserted saline lock: 20 gauge in right in left forearm, using aseptic technique. bb ,using aseptic technique. by ED staff Blood collected. 00:31 Patient arrived in ED. cf2 00:33 Assisted provider with intubation using 7.5 mm ETT via oral route. ET tube secured at bb 22cm at the lips. Set up intubation tray. Intubated by Derek Phoenix MD Placement verified by CO2 detector w/ + color change, auscultating bilateral breath sounds, CXR. 00:35 Holcomb cath inserted, using sterile technique, 16 Fr., by ED staff, balloon inflated, to bb gravity drainage. oral gastric tube 16 Fr inserted with return of gastric contents and auscultation. 00:36 Ector Laurent, ANDRADE is Primary Nurse. rr5 00:40 Triage completed. mg2 00:41 Arm band placed on. mg2 00:44 Derek Phoenix MD is Attending Physician. mh7 00:49 Patient has correct armband on for positive identification. mg2 00:55 Chest Single View XRAY In Process Unspecified. EDMS 00:55 Notified ED physician of a critical lab result(s). HGB of 6.4, HCT of 20.3. Dr Alban smith notified. 01:30 Assisted provider with central line placement. Set up central line tray. Triple lumen mg2 line placed in right femoral. Line placed by Derek Phoenix MD Placement verified by blood return, Dressed with Tegaderm, Patient tolerated well. Time-out/Briefing performed prior to start of procedure? Yes. Was handwashing/sanitizing done immediately prior to procedure? Yes. Was patient positioned to in a way to prevent air embolism? Yes. Was procedure site sterilized? Yes, with chlorhexidine. Was the site allowed to dry? Yes. During the procedure, did the Practitioner(s) maintain a sterile field? Yes. Was blood aspirated from each lumen? Yes. After the procedure, did the Practitioner(s) clean the site and apply a sterile dressing? Yes. 02:48 Kaveh Castle, RN is Primary Nurse. mg2 02:54 CT Head C Spine In Process Unspecified. EDMS 02:54 CT Chest Abdomen Pelvis W/O Contrast In Process Unspecified. EDMS 03:07 Patient admitted, IV remains in place. mg2 Administered Medications: 00:31 Drug: Etomidate 20 mg {Note: by Kaveh Nunes RN.} Route: IVP; Site: right forearm; bb 03:06 Follow up: Response: No adverse reaction mg2 00:34 Drug: Rocuronium 50 mg {Note: by Kaveh Nunes RN.} Route: IVP; Site: right forearm; bb 03:06 Follow up: Response: No adverse reaction mg2 00:41 Drug: NS 0.9% (30 ml/kg) 30 ml/kg Route: IV; Rate: bolus; Site: right forearm; mg2 00:52 Drug: Tylenol Suppository 650 mg Route: RI; mg2 03:05 Follow up: Response: No adverse reaction; Temperature is decreased mg2 01:04 Drug: ProTONIX 80 mg Route: IVP; Site: left forearm; rr5 03:06 Follow up: Response: No adverse reaction mg2 01:06 Drug: ProTONIX 8 mg/hr Route: IV; Rate: 25 ml/hr; Site: left forearm; rr5 03:06 Follow up: IV Status: Infusion continued upon admission mg2 01:44 Drug: metroNIDAZOLE 500 mg Volume: 100 ml; Route: IVPB; Infused Over: 30 mins; Site: mg2 left antecubital; 03:05 Follow up: Response: No adverse reaction; IV Status: Completed infusion; IV Intake: mg2 100ml 01:44 Drug: LevaQUIN 500 mg Volume: 100 ml; Route: IVPB; Infused Over: 60 mins; Site: right mg2 forearm; 03:05 Follow up: Response: No adverse reaction; IV Status: Completed infusion mg2 01:44 Drug: Propofol 5 mcg/kg/min Route: IV; Rate: calculated rate; Site: right femoral; mg2 06:54 Follow up: Response: No adverse reaction; IV Status: Infusion continued upon transfer mg2 Point of Care Testing: Guaiac: 05:32 Stool Guaiac: Negative; Stool Hemoccult Control: Pass; Emesis Guaiac: Positive; Emesis mg2 Hemoccult Control: Pass Intake: 03:05 IV: 100ml; Total: 100ml. mg2 Ventilator: 00:40 Fi02: 100%; Rate: 16min; T.V.: 410ml; Peep: 5cm; ET tube: 7.5 mm (Oral); bb Outcome: 04:48 ER care complete, transfer ordered by MD. lechuga 06:55 Transferred by ground EMS to [facility], Transfer form mg2 completed. 06:55 critical 06:55 Instructed on the need for transfer, Demonstrated understanding of instructions. 06:56 Patient left the ED. mg2 Signatures: Dispatcher [employer] EDGricelda Torres RN RN Kaveh Evans RN RN mg2 Cayetano Mancilla, RN RN rv Ector Laurent, RN RN rr5 Victor Hugo Acuna2 Derek Phoenix MD MD mh7 Corrections: (The following items were deleted from the chart) 02:03 02:01 Inserted mg2 mg2
--- NOTE | 2020-10-22 04:48 | EDPHYS ---
Physician Documentation [facility] Name: Mumtaz Anderson Age: 65 yrs Sex: Male : 1955 Arrival Date: 10/22/2020 Time: 00:31 Bed 3 Private MD: ED Physician Derek Phoenix HPI: 10/22 01:33 This 65 yrs old Male presents to ER via EMS with complaints of Vomiting, AMS. mh7 01:34 The patient presents with decreased mental status. 7 01:35 Onset: The symptoms/episode began/occurred today. Possible causes: unknown. Associated 7 signs and symptoms: Pertinent positives: nausea, vomiting, dark liquid. Current symptoms: In the emergency department the patient's symptoms are unchanged from the initial presentation, despite EMS interventions. Patient's baseline: unknown. Historical: - Allergies: 00:41 Nexium D; mg2 00:41 Spironolactone; mg2 - PMHx: 00:41 Anemia; CAD; CHF; COPD; Diabetes - IDDM; Hypertension; Myocardial infarction; Seizures; mg2 - PSHx: 00:41 CABG; mg2 - Immunization history:: Flu vaccine status is unknown. - Social history:: Smoking status: unknown. ROS: 01:35 Unable to obtain ROS due to altered mental status. 7 Exam: 01:35 Head/Face: Normocephalic, atraumatic. Neck: Trachea midline, no thyromegaly or masses mh7 palpated, and no cervical lymphadenopathy. Supple, full range of motion without nuchal rigidity, or vertebral point tenderness. No Meningismus. Chest/axilla: Normal chest wall appearance and motion. Nontender with no deformity. No lesions are appreciated. 01:35 Abdomen/GI: Soft, non-tender, with normal bowel sounds. No distension or tympany. No guarding or rebound. No evidence of tenderness throughout. Back: No spinal tenderness. No costovertebral tenderness. Full range of motion. Male : Normal genitalia with no discharge or lesions. Skin: Warm, dry with normal turgor. Normal color with no rashes, no lesions, and no evidence of cellulitis. 01:35 Constitutional: The patient appears in obvious distress, severely distressed, obviously ill. 01:35 Constitutional: The patient appears emaciated, frail. 01:35 Cardiovascular: Rate: tachycardic, Rhythm: regular, Pulses: no pulse deficits are appreciated, Heart sounds: normal, normal S1and S2, Edema: is not appreciated, JVD: is not appreciated. 01:35 Respiratory: severe repiratory distress is noted, Respirations: tachypnea, that is severe, Breath sounds: rhonchi, that are moderate, are scattered, Respiratory rate: 30 01:35 Musculoskeletal/extremity: Extremities: all appear grossly normal, with no appreciated pain with palpation, Circulation is intact in all extremities. 01:35 Neuro: Orientation: unable to test, the patient is comatose, Mentation: unable to test, the patient is comatose, Memory: unable to test, the patient is comatose, Cranial nerves: unable to test, the patient is comatose, Cerebellar function: unable to test, the patient is comatose, Motor: unable to test, the patient is comatose, Sensation: unable to test, the patient is comatose, Gait: not tested. seizure activity, is not displayed by the patient, Abnormal movements: there are no abnormal movements. Vital Signs: 00:25 BP 94 / 58; Pulse 118; Resp 10; Pulse Ox 58% on R/A; Weight 45.36 kg; mg2 00:31 BP 94 / 58; Pulse 104; Resp 12 S; Pulse Ox 91% on Non-rebreather mask; Weight 56.7 kg bb (R); Height 6 ft. 0 in. (182.88 cm) (R); 00:33 BP 112 / 58; Pulse 119; Resp 28 A; Pulse Ox 90% on BVM; bb 00:35 Pulse Ox 98% on 100% FiO2 ETT vent; bb 00:40 BP 126 / 61; Pulse 111; Resp 16 A; Pulse Ox 100% on 100% FiO2 ETT vent; bb 00:46 Temp 100.7(C); mg2 01:32 BP 138 / 63; Pulse 104; Resp 16; Temp 99(C); Pulse Ox 100% on ETT vent; mg2 02:48 BP 92 / 57; Pulse 94; Resp 17; Temp 98.4; Pulse Ox 100% on 100% FiO2 ETT vent; mg2 03:52 BP 112 / 59; Pulse 89; Resp 16; Temp 99.7; Pulse Ox 100% on R/A; mg2 04:45 BP 117 / 66; Pulse 87; Resp 17; Temp 100.2; Pulse Ox 100% on 100% FiO2 ETT vent; mg2 00:31 Body Mass Index 16.95 (56.70 kg, 182.88 cm) bb Ventilator: 00:40 Fi02: 100%; Rate: 16min; T.V.: 410ml; Peep: 5cm; ET tube: 7.5 mm (Oral); bb Procedures: 02:51 Intubation: Ventilated with 100% NRB prior to procedure. O2 saturation prior to mh7 procedure was 87 %. Intubated orally using # 3 Denny blade with 7.5 mm ETT. was successful on first attempt. Ventilated with Ambu bag. ventilator. Cricoid pressure applied during procedure. Tube secured with ETT fernandes at right side of mouth measured 22 cm at lip. Placement verified by CXR, CO2 detector with (+) color change, auscultating bilateral breath sounds, O2 saturation after procedure was 100 %. Patient tolerated well. 05:38 Central Line: the site was prepped with Betadine, in sterile fashion, a triple lumen mh7 catheter was inserted, in the right femoral vein, in 1 attempts. placement was verified, by blood return, the site was dressed with Tegaderm, using sterile technique, the patient tolerated the procedure, well. MDM: 04:45 Differential Diagnosis: CVA, electrolyte abnormality, hypoglycemia, intracranial bleed, mh7 pneumonia, sepsis, UTI. Data reviewed: vital signs, nurses notes, EMS record, lab test result(s), cardiac enzymes, CBC, electrolytes, urinalysis, EKG, radiologic studies, CT scan, plain films. Data interpreted: Pulse oximetry: on ventilator is 100 %. Interpretation: acceptable. Counseling: I had a detailed discussion with the patient and/or guardian regarding: the historical points, exam findings, and any diagnostic results supporting the discharge/admit diagnosis, lab results, radiology results, the need to transfer to another facility, for higher level of care, [facility] does not immediately have the required specialist. Response to treatment: the patient's symptoms have markedly improved after treatment. 04:48 Patient medically screened. mh7 10/22 00:33 Order name: Amylase, Serum rr5 10/22 00:33 Order name: Basic Metabolic Panel rr5 10/22 00:33 Order name: Blood Culture Adult (2) rr5 04/10 00:33 Order name: CBC with Diff rr5 10/22 00:33 Order name: Ckmb rr5 10/22 00:33 Order name: CPK rr5 10/22 00:33 Order name: Lactate rr5 10/22 00:33 Order name: LFT's rr5 10/22 00:33 Order name: Lipase rr5 10/22 00:33 Order name: Procalcitonin rr5 10/22 00:33 Order name: Protime (+inr) rr5 10/22 00:33 Order name: Ptt, Activated rr5 10/22 00:33 Order name: Troponin (emerg Dept Use Only) rr5 10/22 00:33 Order name: Urine Microscopic Only; Complete Time: 02: rr5 10/22 00:33 Order name: Amylase; Complete Time: : EDMS 10/22 00:33 Order name: Basic Metabolic Panel; Complete Time: : EDMS 10/22 00:33 Order name: Blood Culture EDMA 10/22 00:33 Order name: CBC with Automated Diff; Complete Time: : EDMS 10/22 00:33 Order name: CKMB Creatine Kinase MB; Complete Time: : EDMS 10/22 00:33 Order name: Creatine Phosphokinase; Complete Time: : EDMS 10/22 00:33 Order name: Lactate; Complete Time: : EDMS 10/22 00:33 Order name: Liver (Hepatic) Function; Complete Time: : EDMS 10/22 00:33 Order name: Lipase; Complete Time: : EDMS 10/22 00:33 Order name: Procalcitonin; Complete Time: : EDMS 10/22 00:33 Order name: Protime (+INR); Complete Time: 00:55 EDMS 10/22 00:33 Order name: PTT, Activated Partial Thromb; Complete Time: 00:55 EDMS 10/22 00:33 Order name: Troponin (Emerg Dept Use Only); Complete Time: :41 EDMS 10/22 00:54 Order name: Type And Screen 7 10/22 00:55 Order name: CBC Smear Scan; Complete Time: 01: EDMS 10/22 00:55 Order name: Type and Screen EDMS 10/22 00:33 Order name: Chest Single View XRAY rr5 10/22 00:33 Order name: Accucheck; Complete Time: 00:52 rr5 10/22 00:33 Order name: Cardiac monitoring; Complete Time: 00:36 rr5 10/22 00:33 Order name: EKG - Nurse/Tech; Complete Time: 00:36 rr5 10/22 00:33 Order name: IV Saline Lock - Large Bore; Complete Time: 00:37 rr5 10/22 00:33 Order name: Labs collected and sent; Complete Time: 00:37 rr5 10/22 00:33 Order name: O2 Per Protocol; Complete Time: 00:37 rr5 10/22 00:33 Order name: O2 Sat Monitoring; Complete Time: 00:37 5 10/22 00:33 Order name: Urine Dipstick-Ancillary (obtain specimen); Complete Time: 01:10 5 10/22 01:03 Order name: Urine Dipstick-Ancillary; Complete Time: 01:41 EDMA 10/22 01:07 Order name: Holcomb; Complete Time: 01:07 5 10/22 01:32 Order name: ABG Arterial Blood Gas; Complete Time: 01:41 EDMS 10/22 01:44 Order name: CT Head C Spine [facility] 10/22 01:59 Order name: Packed RBC Leukored [facility] 10/22 02:17 Order name: Urine Culture [facility] 10/22 02:21 Order name: SARS-COV-2 RT PCR; Complete Time: 02:33 EDMS 10/22 02:34 Order name: CT Chest Abdomen Pelvis W/O Contrast mg2 10/22 02:34 Order name: AMMONIA; Complete Time: 04:32 7 10/22 04:05 Order name: Lactate Sepsis 2 HR Follow-up; Complete Time: 04:32 EDMS 10/22 01:07 Order name: Nasogastric Tube; Complete Time: 01:07 5 10/22 01:08 Order name: Central Line Kit; Complete Time: 01:08 5 10/22 01:09 Order name: Suction; Complete Time: 01:09 5 Administered Medications: 00:31 Drug: Etomidate 20 mg {Note: by Kaveh Nunes RN.} Route: IVP; Site: right forearm; bb 03:06 Follow up: Response: No adverse reaction mg2 00:34 Drug: Rocuronium 50 mg {Note: by Kaveh Nunes RN.} Route: IVP; Site: right forearm; bb 03:06 Follow up: Response: No adverse reaction mg2 00:41 Drug: NS 0.9% (30 ml/kg) 30 ml/kg Route: IV; Rate: bolus; Site: right forearm; mg2 00:52 Drug: Tylenol Suppository 650 mg Route: DC; mg2 03:05 Follow up: Response: No adverse reaction; Temperature is decreased mg2 01:04 Drug: ProTONIX 80 mg Route: IVP; Site: left forearm; rr5 03:06 Follow up: Response: No adverse reaction mg2 01:06 Drug: ProTONIX 8 mg/hr Route: IV; Rate: 25 ml/hr; Site: left forearm; rr5 03:06 Follow up: IV Status: Infusion continued upon admission mg2 01:44 Drug: metroNIDAZOLE 500 mg Volume: 100 ml; Route: IVPB; Infused Over: 30 mins; Site: mg2 left antecubital; 03:05 Follow up: Response: No adverse reaction; IV Status: Completed infusion; IV Intake: mg2 100ml 01:44 Drug: LevaQUIN 500 mg Volume: 100 ml; Route: IVPB; Infused Over: 60 mins; Site: right mg2 forearm; 03:05 Follow up: Response: No adverse reaction; IV Status: Completed infusion mg2 01:44 Drug: Propofol 5 mcg/kg/min Route: IV; Rate: calculated rate; Site: right femoral; mg2 06:54 Follow up: Response: No adverse reaction; IV Status: Infusion continued upon transfer mg2 Point of Care Testing: Guaiac: 05:32 Stool Guaiac: Negative; Stool Hemoccult Control: Pass; Emesis Guaiac: Positive; Emesis mg2 Hemoccult Control: Pass Disposition: 10/22/20 04:48 Transfer ordered to [facility]. Diagnosis are Upper GI Bleed, Bilateral Pneumonia, Respiratory Failure, Altered Mental Status, Urinary tract infection, site not specified. - Reason for transfer: Higher level of care. - Accepting physician is Dr. Dejon Mcintyre. - Condition is Critical. - Problem is new. - Symptoms have improved. Signatures: Dispatcher [employer] EDMA Gricelda Darby RN RN bb Kaveh Castle RN RN mg2 Ector Laurent RN RN rr5 Derek Phoenix MD MD mh7 Corrections: (The following items were deleted from the chart) 01:30 01:14 CORONAVIRUS+MR.LAB.BRZ ordered. EDMA EDMS 02:46 02:34 Thorax Wo Con+CT.RAD.BRZ ordered. EDMA EDMS 02:47 02:34 Abdomen Pelvis Wo Con+CT.RAD.BRZ ordered. EDMA EDMS 04:59 04:48 10/22/2020 04:48 Transfer ordered to Other Acute Care Facility. Diagnosis is mh7 Upper GI Bleed; Bilateral Pneumonia; Respiratory Failure; Altered Mental Status. Reason for transfer: Higher level of care. Accepting physician is Dr. THORPE. Condition is Critical. Problem is new. Symptoms have improved. [facility] 05:19 04:59 10/22/2020 04:48 Transfer ordered to [facility]. Diagnosis is Upper GI Bleed; mh7 Bilateral Pneumonia; Respiratory Failure; Altered Mental Status. Reason for transfer: Higher level of care. Accepting physician is Dr. THORPE. Condition is Critical. Problem is new. Symptoms have improved. [facility] 05:38 05:19 10/22/2020 04:48 Transfer ordered to [facility]. Diagnosis is Upper GI Bleed; mh7 Bilateral Pneumonia; Respiratory Failure; Altered Mental Status. Reason for transfer: Higher level of care. Accepting physician is Dr. Mcintyre. Condition is Critical. Problem is new. Symptoms have improved. [facility] 06:56 05:38 10/22/2020 04:48 Transfer ordered to [facility]. Diagnosis is Upper GI Bleed; mg2 Bilateral Pneumonia; Respiratory Failure; Altered Mental Status; Urinary tract infection, site not specified. Reason for transfer: Higher level of care. Accepting physician is Dr. Dejon Mcintyre. Condition is Critical. Problem is new. Symptoms have improved. 7
--- NOTE | 2020-10-22 11:33 | RAD REPORT ---
EXAM DESCRIPTION: RAD - Chest Single View - 10/22/2020 12:56 am CLINICAL HISTORY: FEVER, intubation COMPARISON: July 2020 TECHNIQUE: AP portable chest image was obtained 10/22/2020 12:56 am . FINDINGS: Endotracheal tube is in place with the tip at the top of the aortic arch. NG tube is curle d in the stomach. Left hemidiaphragm elevation is present. Sternotomy wires are in place. Dense opacification is present at the left base. Small left pleural effusion is suspected. Mid and lo wer right lung field opacification is also present. There are patchy opacities in the mid left lung f ield. Skin fold artifact overlies the right chest. Heart and vasculature are normal. No pneumothorax or large pleural effusion. No acute bony abnormality seen. No acute aortic findings suspected. IMPRESSION: Endotracheal tube in good position. Tip is top of the aortic arch. NG tube is in place curled in the stomach. Consolidated parenchyma left base with more moderate airspace opacification in the mid and lower lung medley. Lung findings could be infectious or aspiration pneumonia.
[2020-10-22 15:55] VITALS: O2SAT 100
[2020-10-22 16:02] VITALS: BP 117/66; TEMP 100.2
--- NOTE | 2020-10-24 07:19 | EKG ---
Test Date: 2020-10-22 Test Time: 00:23:19 [employer] Commanding Officer: AZRA MEASUREMENT RESULTS: Intervals: Rate: 104 [place]: 224 QRSD: 146 QT: 384 QTc: 504 [place]: P: 63 [place]: 224 QRS: -34 T: 27 INTERPRETIVE STATEMENTS: Sinus tachycardia with 1st degree AV block Left axis deviation Left bundle branch block Abnormal ECG Compared to ECG 07/16/2020 16:22:40 Left bundle-branch block now present Sinus rhythm no longer present Myocardial infarct finding no longer present T-wave abnormality no longer present Possible ischemia no longer present Electronically Signed On 10-24-20 07:14:48 CDT by Martin Reyes
--- NOTE | 2020-10-24 10:53 | RAD REPORT ---
EXAM DESCRIPTION: CT - Chest Abd Pelvis Wo Con - 10/22/2020 6:22 am CLINICAL HISTORY: Hematemesis TECHNIQUE: Contiguous axial images obtained through the chest following the uneventful administratio n of IV contrast. Coronal and sagittal reformatted images provided. This exam was performed according to our departmental dose-optimization program, which includes autom ated exposure control, adjustment of the mA and/or kV according to patient size and/or use of iterati ve reconstruction technique. COMPARISON: 05/18/2020 FINDINGS: Lungs: Multifocal reticular nodular opacities bilaterally with relative sparing of the rig ht upper and middle lobes. Extensive left basilar consolidation, progressed from the prior. Left basi lar airways are collapsed. Endotracheal tube tip terminates 5.2 cm proximal to the amol. Pleura: No effusion. No pneumothorax. Heart and pericardium: The heart is mildly enlarged. Coronary artery and mitral annular calcification . Prior CABG. No pericardial effusion. Mediastinum and tiffany: No pathologically enlarged lymph nodes. Lower neck and chest wall: Unremarkable Vessels: Mild to moderate atherosclerotic disease. The ascending aorta measures 3.9 cm in maximum fartun meter. Bones: Prior median sternotomy. Mild multilevel spondylosis. T12 compression fracture with progressiv e loss of height, now up to 70% (previously 30%). Areas of linear lucency along the superior aspect o f the vertebral body. EXAM DESCRIPTION: CT ABDOMEN PELVIS WITHOUT IV CONTRAST CLINICAL HISTORY: Hematemesis TECHNIQUE: Contiguous axial images obtained through the abdomen and pelvis without IV contrast. Layton nal and sagittal reformatted images were provided. This exam was performed according to our departmental dose-optimization program, which includes autom ated exposure control, adjustment of the mA and/or kV according to patient size and/or use of iterati ve reconstruction technique. COMPARISON: 05/18/2020 FINDINGS: Liver: Grossly unremarkable Gallbladder and biliary system: Subtle layering density within the gallbladder which may be related t o gallstones and/or sludge. No gallbladder wall thickening. Pancreas: Grossly unremarkable Spleen: Grossly unremarkable Adrenals: Unremarkable Kidneys: Exophytic cyst at the anterior upper pole on the right now measures 1.6 cm (previously 3.1 c m). No calculi. No hydronephrosis. Bowel: Nasogastric tube coiled within the stomach. Moderate well-formed stool particularly within the mid to distal large bowel. Appendix: Normal caliber appendix. No findings to suggest acute appendicitis. Urinary bladder: Decompressed around a Holcomb catheter. Reproductive: Unremarkable as visualized Lymph nodes: No pathologically enlarged lymph nodes. Peritoneum: No focal fluid collection. No free air. Vessels: Moderate to severe atherosclerotic disease. No abdominal aortic aneurysm. Right common femor al central venous catheter terminating in the right external iliac vein. Abdominal wall: Asymmetric enlargement of the right adductor group and proximal thigh anterior compar tment with mild deep soft tissue edema. Bones: Multilevel spondylosis. L3 compression fracture with progressive loss of height, now 40% (prev iously 20%). Left total hip arthroplasty hardware in place with associated artifact. IMPRESSION: CT CHEST: 1. Multifocal infiltrates bilaterally. Extensive left basilar consolidation (atelectasis and/or inf iltrate, progressed from the prior. Left basilar airways are collapsed. 2. T12 compression fracture with progressive loss of height, now up to 70%. Areas of linear lucency along the superior aspect of the T12 vertebral body which may be related to superimposed subacute fr acture. 3. Other findings as above. CT ABDOMEN PELVIS: 1. Moderate well-formed stool particularly within the mid to distal large bowel. No obstruction. 2. L3 compression fracture with progressive loss of height, now 40%. 3. Right femoral central venous catheter in place. Asymmetric enlargement of the right adductor avinash up and proximal thigh anterior compartment with mild deep soft tissue edema which may be postprocedur al. An underlying hematoma cannot be excluded on the basis of this examination. 4. Other findings as above. Electronically signed by: Gabriele Jimenes MD 10/22/2020 3:35 AM CDT Due to temporary technical issues with the PACS/Fluency reporting system, reports are being signed by the in house radiologist without review as a courtesy to ensure prompt reporting. The interpreting r adiologist is fully responsible for the content of the report.
--- NOTE | 2020-10-24 10:55 | RAD REPORT ---
EXAM DESCRIPTION: CT - [id number] - 10/22/2020 6:23 am CLINICAL HISTORY: The patient is 65 years old and is Male; AMS TECHNIQUE: Axial computed tomography images of the head/brain and cervical spine without intravenous contrast. Sagittal and coronal reformatted images were created and reviewed. This CT exam was pe rformed using one or more of the following dose reduction techniques: automated exposure control, a djustment of the mA and/or kV according to patient size, and/or use of iterative reconstruction techn ique. COMPARISON: No relevant prior studies available. FINDINGS: Brain: Mild cerebral atrophy. Mild nonspecific white matter changes likely related to chronic microvascular ischemic disea se. No hemorrhage. Ventricles: Mild prominence of the lateral ventricles. Skull: No acute fracture. Sinuses: Unremarkable as visualized. No acute sinusitis. Mastoid air cells: The left mastoid air cells are opacified and hypopneumatized. Vertebrae: No acute cervical spine fracture or subluxation. Levocurvature to the cervical spine. Discs/spinal canal/neural foramina: Disc space narrowing with degenerative endplate changes from C5 to C7. Moderate bilateral neural foraminal narrowing at C3-C4. Disc osteophyte complex causing moderate spinal canal narrowing C4-C5. Soft tissues: Unremarkable. Lung apices: 1.2 cm groundglass nodule in the left scattered other lung apex. Fleischner Socie ty Guidelines (MacMahon, et al. Radiology 2017; 284(1):228-43) recommend chest CT evaluation. Scattered other left apical groundglass changes. IMPRESSION: 1. No acute intracranial abnormality. 2. No acute cervical spine fracture or subluxation. Electronically signed by: Bowen Hicks MD 10/22/2020 3:45 AM CDT Due to temporary technical issues with the PACS/Fluency reporting system, reports are being signed by the in house radiologist without review as a courtesy to ensure prompt reporting. The interpreting r adiologist is fully responsible for the content of the report.
== END 2020-10-22 06:56 | disposition short-term general hospital (02) ==
LOC: ER 00:23
PROC: 0BH17EZ Insertion of Endotracheal Airway into Trachea, Via Natural or Artificial Opening (ICD-10-PCS; principal; 2020-10-22)
PROC: 06HY33Z Insertion of Infusion Device into Lower Vein, Percutaneous Approach (ICD-10-PCS; 2020-10-22)
DX: K92.0 Hematemesis (principal); Z20.822 Contact with and (suspected) exposure to COVID-19; J18.9 Pneumonia, unspecified organism; J96.90 Respiratory failure, unspecified, unspecified whether with hypoxia or hypercapnia; N39.0 Urinary tract infection, site not specified; R41.82 Altered mental status, unspecified; I25.10 Atherosclerotic heart disease of native coronary artery without angina pectoris; I11.0 Hypertensive heart disease with heart failure; I50.9 Heart failure, unspecified; J44.0 Chronic obstructive pulmonary disease with (acute) lower respiratory infection; E11.9 Type 2 diabetes mellitus without complications; Z79.4 Long term (current) use of insulin; I25.2 Old myocardial infarction
CPT/HCPCS: 87040 ×2; 87088; 85025; 87086; 80048; 36415; 82140; 82150; 86900; 86850; 82550; 85610; 86901; 80076; 83605 ×2; 85730; 84484; 82553; 83690; 84145; 70450; 71250; 72125; 74176; 71045; 94002; 82805; 94003; 31500; 36556; U0003; J2704; C9113; P9016 ×2; J7050; J7040 ×2; J7030; J2405; 51702; 81003; 81015; 87077; 87186; 93005; 99291; 99292

== ENCOUNTER 2020-11-23 10:19 | Emergency (ER) | payer OTHER ==
--- OUTSIDE RECORDS SUMMARY | 2020-11-23 10:23 | XMS REPORT | Continuity of Care Document ---
:1955 Author Organization [facility] t Address [address] [place] [address] Care Team Providers Name Role Phone Dionna ZAFAR, A Attending Clinician Unavailable Doctor Unassigned, Name Attending Clinician Unavailable Charly JONES Attending Clinician Adrian ZAFAR Attending Clinician Laurie JONES, Scott Attending Clinician ELMO Attending Clinician Unavailable Problems [...] Burn Burn Problem Active [facility] [place] [facility] ans Allergies, Adverse Reactions, Alerts Allergy Allergy Status Severity Reaction(s) Onset Inactive Treating Comm ents Source Name Type Date Date Clinician Linda Regaladoi Active Hallucinatio [facility] TB12 ty to ns ity of adverse [place] reaction Physici s to ans drug (finding ) Family History Family Member Diagnosis Comments Start Date Stop Date Source Mother Family history of [facility] [place] coronary artery Physician s disease Mother Family history of [facility] [place]'s disease Physici ans Mother Family history of [facility] [place] diabetes mellitus Physici ans Mother Family history of [facility] [place] hypertension Physicians Mother Family history of [facility] [place] malignant neoplasm Physic ians Father Family history of [facility] [place] diabetes mellitus Physici ans Father Family history of [facility] [place] hypertension Physicians Father Family history of [facility] [place] coronary artery Physician s disease Sister Family history of [facility] [place] malignant neoplasm Physic ians Brother Family history of [facility] [place] pancreatic cancer Physici ans Social History Smoking Status Start Date Stop Date Source Ex-smoker (finding) [place] [facility] Medications Ordered Filled Start Stop Current [...] Tablet Oral Tablet 7days ans Doxycycline Doxycycline 2019-0 Yes M.A. TAKE 1 Univers Hyclate 100 Hyclate 100 3-05 CAPSULE ity of MG Oral MG Oral 00:00: EVERY 12 You as Capsule Capsule 00 HOURS Physici DAILY. FOR ans 7 DAYS Lisinopril Lisinopril 2019-0 Yes M.A. Q0.5D TAKE 1 Univers 5 MG Oral 5 MG Oral 3-05 TABLET ity of Tablet Tablet 00:00: TWICE [place] 00 DAILY. Physici ans Furosemide Furosemide 2019-0 Yes M.A. Q0.5D TAKE 1 Univers 40 MG Oral 40 MG Oral 3-05 TABLET i ty of Tablet Tablet 00:00: TWICE [place] 00 DAILY. Physici ans Nicotine 14 Nicotine 14 2019-0 Yes M.A. QD APPLY 1 Univers MG/24HR MG/24HR 3-05 PATCH ity of Transdermal Transdermal 00:00: DAILY [place] Patch 24 Patch 24 00 DIRECTED. Ph ysici Hour Hour ans Atorvastati Atorvastati 2019-0 Yes M.A. 1 TAKE 1 Univers n Calcium n Calcium 3-05 TABLET AT ity of 80 MG Oral 80 MG Oral 00:00: BEDTIME. [place] Tablet Tablet 00 Physici ans Plavix 75 Plavix 75 2019- Yes M.A. 1 QD TAKE 1 U [...] Fe) MG (65 Fe) MG 00:00: TIMES [place] Oral Tablet Oral Tablet 00 DAILY WITH Physici FOOD. ans Aspirin 81 Aspirin 81 2020-0 Yes M.A. QD CHEW AND Univers MG Oral MG Oral 3-05 SWALLOW 1 ity of Tablet Tablet 00:00: TABLET [place] Chewable Chewable 00 DAILY. Physi ci ans Nitroglycer Nitroglycer 2019-[address] 1 Univers in 0.4 MG in 0.4 MG 3-05 TABLET ity of Sublingual Sublingual 00:00: UNDER THE [place] Tablet Tablet 00 TONGUE Physici Sublingual Sublingual EVERY 5 ans MINUTES FOR UP TO 3 DOSES NEEDED FOR CHEST PAIN.CALL 911 IF PAIN PERSISTS. HumuLIN R HumuLIN R 2019- Yes M.A. inject 12 Univers 100 UNIT/ML 100 UNIT/ML 3-05 units ity of Injection Injection 00:00: under the [place] Solution Solution 00 skin 2 Physi ci times ans daily before breakfast and dinner. Vital Signs Vital Name Observation Time Observation Value Comments Source Systolic blood 2019-09-29 155 mm[Hg] Location: [facility] 16:23:00 Position: [place] Physician s Sitting Diastolic blood 2019-09-29 68 mm[Hg] Location: [facility] 16:23:00 Position: [place] Physician s Sitting Body height 2019-09-29 72 [in_us] [facility] :23:00 [place] [facility] s Weight 2019-09-29 163 [lb_av] [facility] :23:00 [place] Physician s Body mass index 2019-09-29 22.11 kg/m2 [place] o f (BMI) [Ratio] 16:23:00 [place] Physicia ns Body temperature 2019-09-29 97.9 [degF] Method: Oral [facility] :23: [place] Physician s Heart Rate 2019-09-29 75 /min [facility] :23:00 [place] Phys[facility] s Procedures Procedure Date / Time Performing Source Performed Clinician [B] CMP 2019-09-28 [facility] 00:00:00 [place] [facility] [B] CBC 2019-09-28 [facility] 00:00:00 [place] [facility] History of Cyst excision [facility] [place] [facility] History of Debridement Univers y [facility] Phys[facility] History of Hand Surgery Universi ty [facility] Physicians [facility] of [facility] History of University of Esophagogastroduodenoscopy [place] [facility] History of Colonoscopy Univers y [facility] Physicians History of Surgical removal of U niversity of foreign body [place] [facility] History of CABG University [facility] Physicians Encounters Start End Encounter Admission Attending Care Care Encounter Source Date/Time Date/Time Type Type Clinicians Facility Department ID 2020-11-22 2020-11-22 Nurse ALPHONSE Villareal [id number] 00:00:00 00:00:00 Triage Liane Ulloa [id number] [facility] [id number] 2020-11-16 2020-11-16 Orders Doctor ALPHONSE [id number] 00:00:00 00:00:00 Only Unassigned, [facility] [id number] [place] [facility] [id number] 2020-11-11 2020-11-11 Telephone Parks, [facility] [id number] 00:00:00 00:00:00 Derrick PRIMARY [id number] CARE [id number] PAVILLION [id number] 2020-11-10 2020-11-10 Transition Jatin Campbell [id number] 00:00:00 00:00:00 of Care Nathalia Mcnally [id number] [place] [id number] 2020-11-10 2020-11-10 Refill Laurie, [facility] [id number] 00:00:00 00:00:00 Haris PRIMARY [id number] Scott CARE [id number] PAVILLION [id number] 2019-09-29 2019-09-29 Appointmen ELMO [facility] [id number] [facility] 15:00:00 15:00:00 IGOR Del Valle M.D. Advanced [facility]y [facility] [place] Ptee Failure - Physic i [place] ans Results This patient has no known results.
[2020-11-23] MEDS ORDERED: PANTOPRAZOLE 40 MG INJ ONE (11:17)
[2020-11-23] MEDS ORDERED: NA CHLORIDE 0.9% 1,000 ML ONE (11:17)
[2020-11-23 11:38] LABS: Absolute Lymphocytes (CBC) 0.9 K/uL (0.7-4.9); Basophils % 0.6 % (0-1.3); Hematocrit 23.4 % (39.6-49.0); Lymphocytes % 11.2 % (15.3-44.8); RBC Red Blood Cell Count 3.13 M/uL (4.33-5.43)
[2020-11-23] MEDS ORDERED: D50W 25 GM/50 ML SYRINGE IV ONE (11:45)
[2020-11-23 11:48] LABS: Protime INR 1.02
--- NOTE | 2020-11-23 11:50 | ER ---
Nurse's Notes [facility]: Mumtaz Anderson Age: 65 yrs Sex: Male : 1955 Arrival Date: 11/23/2020 Time: 10:21 Bed 14 Private MD: Diagnosis: Anemia, unspecified;Gastrostomy malfunction-blocked;Hypoglycemia, unspecified;Type 1 diabetes mellitus Presentation: 11/23 10:23 Chief complaint: EMS states: Pt feeding tube has been clogged since yesterday around vg1 1400. Stated pt spoke with a doctor and was told to come to the ED to get it fixed. Pts FSBG was taken by EMS, results of 35. Coronavirus screen: Client denies travel out of the [place] in the last 14 days. Ebola Screen: Patient negative for fever greater than or equal to 101.5 degrees Fahrenheit, and additional compatible Ebola Virus Disease symptoms. Initial Sepsis Screen: Does the patient meet any 2 criteria? No. Patient's initial sepsis screen is negative. Does the patient have a suspected source of infection? No. Patient's initial sepsis screen is negative. Risk Assessment: Do you want to hurt yourself or someone else? Patient reports no desire to harm self or others. Onset of symptoms was November 22, 2020. 10:23 Method Of Arrival: EMS: [facility] vg1 10:23 Acuity: VIDAL 3 vg1 Triage Assessment: 10:28 General: Appears in no apparent distress. comfortable, Behavior is calm, cooperative. vg1 Historical: - Allergies: 10:28 Nexium D; vg1 10:28 Spironolactone; vg1 - Home Meds: 10:28 aspirin 81 mg Oral chew [Active]; atorvastatin 80 mg Oral tab 1 tab once daily vg1 [Active]; clopidogrel 75 mg Oral tab 1 tab once daily [Active]; escitalopram oxalate 20 mg Oral tab 1 tab once daily [Active]; ferrous sulfate 325 mg (65 mg iron) Oral tab three times a day [Active]; Lasix 40 mg Oral tab 1 tab once daily [Active]; metformin 500 mg Oral tab 1 tab 2 times per day [Active]; Novolin 70/30 [place] Sub-Q [Active]; - PMHx: 10:28 Anemia; CAD; CHF; COPD; Diabetes - IDDM; Hypertension; Myocardial infarction; Seizures; vg1 - Immunization history:: Adult Immunizations. - Social history:: Smoking status: Patient/guardian denies using tobacco. - Family history:: not pertinent. Screenin:28 Abuse screen: Denies threats or abuse. Nutritional screening: No deficits noted. vg1 Tuberculosis screening: No symptoms or risk factors identified. Fall Risk No fall in past 12 months (0 pts). No secondary diagnosis (0 pts). No IV (0 pts). Ambulatory Aid- None/Bed Rest/Nurse Assist (0 pts). Gait- Normal/Bed Rest/Wheelchair (0 pts) Mental Status- Oriented to own ability (0 pts). Total Walter Fall Scale indicates No Risk (0-24 pts). Assessment: 10:16 General: Appears in no apparent distress. comfortable, Behavior is calm, cooperative. vg1 Pain: Denies pain. Neuro: Level of Consciousness is awake, alert, obeys commands, Oriented to person, place, time, situation. Cardiovascular: Capillary refill < 3 seconds in bilateral fingers. Respiratory: Airway is patent Respiratory effort is even, unlabored. GI: PEG tube in place, Site clean. : No signs and/or symptoms were reported regarding the genitourinary system. EENT: No signs and/or symptoms were reported regarding the EENT system. Derm: Skin is intact, Skin is pale. Musculoskeletal: Circulation, motion, and sensation intact. 13:00 Reassessment: Patient appears in no apparent distress at this time. Patient and/or vg1 family updated on plan of care and expected duration. Pain level reassessed. Patient is alert, oriented x 3, equal unlabored respirations, skin warm/dry/pink. Received VO from Dr Dang to administer 5 mg of Amlodpine PO x1; Reassessed pt BG, 93. 14:20 Reassessment: First unit of blood began at 1345, Right AC. Please refer to Transfusion vg1 record for vitals. 16:56 Reassessment: Patient appears in no apparent distress at this time. Patient and/or vg1 family updated on plan of care and expected duration. Pain level reassessed. Patient is alert, oriented x 3, equal unlabored respirations, skin warm/dry/pink. Blood transfusion of one unit completed at 1645. 21:08 Reassessment: Patient appears in no apparent distress at this time. Patient and/or vg1 family updated on plan of care and expected duration. Pain level reassessed. Patient is alert, oriented x 3, equal unlabored respirations, skin warm/dry/pink. Patient denies pain at this time. Vital Signs: 10:23 BP 151 / 69; Pulse 62; Resp 12; Temp 97.9; Pulse Ox 99% on R/A; Weight 63.5 kg; Height vg1 6 ft. 0 in. (182.88 cm); Pain 0/10; 17:00 BP 162 / 71; Pulse 70; Resp 16; Pulse Ox 100% on R/A; vg1 18:00 BP 162 / 68; Pulse 70; Resp 16; Pulse Ox 100% on R/A; vg1 19:00 BP 164 / 69; Pulse 72; Resp 14; Pulse Ox 100% on R/A; vg1 20:00 BP 159 / 77; Pulse 72; Resp 14; Pulse Ox 100% on R/A; vg1 10:23 Body Mass Index 18.99 (63.50 kg, 182.88 cm) vg1 ED Course: 10:21 Patient arrived in ED. ds1 10:23 Tonie Garcia, RN is Primary Nurse. vg1 10:23 Homer Dang MD is Attending Physician. stanley 10:25 Triage completed. vg1 10:28 Patient has correct armband on for positive identification. Placed in gown. Bed in low vg1 position. Call light in reach. Side rails up X2. Adult w/ patient. 10:28 Arm band placed on. vg1 11:15 Initial lab(s) drawn, by ut, sent to lab. Inserted saline lock: 20 gauge in right vg1 antecubital area, using aseptic technique. Blood collected. 11:48 Matthew Michelle DO is Hospitalizing Provider. stanley 12:29 XRAY Chest (1 view) In Process Unspecified. EDMS 14:10 Inserted saline lock: 20 gauge in left antecubital area, using aseptic technique. vg1 14:53 Oziel Paulson MD is Referral Physician. stanley 19:20 Dr Dang replaced pt current peg tub to a 16F from a 14F due to it becoming clogged vg1 again today. Pt tolerated well. 21:09 No provider procedures requiring assistance completed. IV discontinued, intact, vg1 bleeding controlled, No redness/swelling at site. Pressure dressing applied. Administered Medications: 11:20 Drug: ProTONIX (pantoprazole) 40 mg Route: IVP; Site: right antecubital; vg1 13:07 Follow up: Response: No adverse reaction vg1 11:20 Drug: NS 0.9% 1000 ml Route: IV; Rate: 125 ml/hr; Site: right antecubital; vg1 20:15 Follow up: IV Status: Completed infusion; IV Intake: 700ml vg1 11:29 Drug: D50W 50 ml Route: IVP; Site: right antecubital; vg1 13:06 Follow up: Response: No adverse reaction; Blood sugar is elevated; FSBG 93 vg1 13:18 Drug: amLODIPine 5 mg Route: PO; vg1 20:14 Follow up: Response: No adverse reaction vg1 Intake: 20:15 IV: 700ml; Total: 700ml. vg1 Outcome: 11:50 Decision to Hospitalize by Provider. [facility] 14:55 Discharge ordered by . [facility] 21:09 Discharged to home via ambulance. vg1 21:09 Condition: improved 21:09 Discharge instructions given to patient, family, Instructed on discharge instructions, follow up and referral plans. Demonstrated understanding of instructions, follow-up care, PEG tube care 21:09 Patient left the ED. vg1 Signatures: Dispatcher [employer] Homer Mercado MD MD cha [place], Rand ds1 Tonie Garcia, RN RN vg1 Corrections: (The following items were deleted from the chart) 14:58 14:20 Reassessment: First unit of blood began at 1345, Right AC vg1 vg1
--- NOTE | 2020-11-23 11:51 | EDPHYS ---
Physician Documentation [facility] Name: Mumtaz Anderson Age: 65 yrs Sex: Male : 1955 Arrival Date: 11/23/2020 Time: 10:21 Bed 14 Private MD: ED Physician Homer Dang HPI: 11/23 11:43 This 65 yrs old Male presents to ER via EMS with complaints of Feeding Tube stanley Issue. 11:43 The patient presents with abdominal pain. Onset: The symptoms/episode began/occurred 2 stanley day(s) ago, PEG Blocked. peg blocked , not eating. Onset: The symptoms/episode began/occurred 3 day(s) ago. The symptoms do not radiate. Associated signs and symptoms: none. Modifying factors: The symptoms are alleviated by food, the symptoms are aggravated by not eating. Severity of symptoms: At their worst the symptoms were moderate in the emergency department the symptoms are unchanged cant unblock peg tube. Historical: - Allergies: 10:28 Nexium D; vg1 10:28 Spironolactone; vg1 - Home Meds: 10:28 aspirin 81 mg Oral chew [Active]; atorvastatin 80 mg Oral tab 1 tab once daily vg1 [Active]; clopidogrel 75 mg Oral tab 1 tab once daily [Active]; escitalopram oxalate 20 mg Oral tab 1 tab once daily [Active]; ferrous sulfate 325 mg (65 mg iron) Oral tab three times a day [Active]; Lasix 40 mg Oral tab 1 tab once daily [Active]; metformin 500 mg Oral tab 1 tab 2 times per day [Active]; Novolin 70/30 [place] Sub-Q [Active]; - PMHx: 10:28 Anemia; CAD; CHF; COPD; Diabetes - IDDM; Hypertension; Myocardial infarction; Seizures; vg1 - Immunization history:: Adult Immunizations. - Social history:: Smoking status: Patient/guardian denies using tobacco. - Family history:: not pertinent. ROS: 11:43 Constitutional: Negative for fever, chills, and weight loss, Eyes: Negative for injury, stanley pain, redness, and discharge, ENT: Negative for injury, pain, and discharge, Neck: Negative for injury, pain, and swelling, Cardiovascular: Negative for chest pain, palpitations, and edema, Respiratory: Negative for shortness of breath, cough, wheezing, and pleuritic chest pain, Back: Negative for injury and pain, : Negative for injury, bleeding, discharge, and swelling, MS/Extremity: Negative for injury and deformity, Neuro: Negative for headache, weakness, numbness, tingling, and seizure, Psych: Negative for depression, anxiety, suicide ideation, homicidal ideation, and hallucinations, Allergy/Immunology: Negative for hives, rash, and allergies, Endocrine: Negative for neck swelling, polydipsia, polyuria, polyphagia, and marked weight changes, Hematologic/Lymphatic: Negative for swollen nodes, abnormal bleeding, and unusual bruising. 11:43 Abdomen/GI: Positive for peg blocked. Exam: 11:43 Constitutional: This is a well developed, well nourished patient who is awake, alert, stanley and in no acute distress. Head/Face: Normocephalic, atraumatic. Eyes: Pupils equal round and reactive to light, extra-ocular motions intact. Lids and lashes normal. Conjunctiva and sclera are non-icteric and not injected. Cornea within normal limits. Periorbital areas with no swelling, redness, or edema. Neck: Trachea midline, no thyromegaly or masses palpated, and no cervical lymphadenopathy. Supple, full range of motion without nuchal rigidity, or vertebral point tenderness. No Meningismus. Chest/axilla: Normal chest wall appearance and motion. Nontender with no deformity. No lesions are appreciated. Cardiovascular: Regular rate and rhythm with a normal S1 and S2. No gallops, murmurs, or rubs. Normal PMI, no JVD. No pulse deficits. Respiratory: Lungs have equal breath sounds bilaterally, clear to auscultation and percussion. No rales, rhonchi or wheezes noted. No increased work of breathing, no retractions or nasal flaring. Back: No spinal tenderness. No costovertebral tenderness. Full range of motion. Male : Normal genitalia with no discharge or lesions. MS/ Extremity: Pulses equal, no cyanosis. Neurovascular intact. Full, normal range of motion. Neuro: Awake and alert, GCS 15, oriented to person, place, time, and situation. Cranial nerves II-XII grossly intact. Motor strength 5/5 in all extremities. Sensory grossly intact. Cerebellar exam normal. Normal gait. Psych: Awake, alert, with orientation to person, place and time. Behavior, mood, and affect are within normal limits. 11:43 ENT: npo, cant swallow, dependent on peg. 11:52 ECG was reviewed by the Attending Physician. stanley 11:54 Abdomen/GI: Inspection: abdomen appears normal, Bowel sounds: normal, Palpation: stanley abdomen is soft and non-tender, Rectal exam: is unremarkable, rectal tone normal, Stool: guaiac negative, hemorrhoid(s), are not appreciated, mass, is not appreciated, swelling, is not appreciated, tenderness, is not appreciated, fecal impaction, is not appreciated, Liver: no appreciated palpable abnormalities, Hernia: not appreciated. Vital Signs: 10:23 BP 151 / 69; Pulse 62; Resp 12; Temp 97.9; Pulse Ox 99% on R/A; Weight 63.5 kg; Height vg1 6 ft. 0 in. (182.88 cm); Pain 0/10; 17:00 BP 162 / 71; Pulse 70; Resp 16; Pulse Ox 100% on R/A; vg1 18:00 BP 162 / 68; Pulse 70; Resp 16; Pulse Ox 100% on R/A; vg1 19:00 BP 164 / 69; Pulse 72; Resp 14; Pulse Ox 100% on R/A; vg1 20:00 BP 159 / 77; Pulse 72; Resp 14; Pulse Ox 100% on R/A; vg1 10:23 Body Mass Index 18.99 (63.50 kg, 182.88 cm) vg1 Procedures: 11:59 Performed unblocked peg tube, flushes great.. stanley 19:59 G-tube placement: a 16 Telugu catheter was placed, by the ED physician, Homer Dang cha, MD peg replacement, 16 spanish, placement verified, kub. MDM: 10:24 Patient medically screened. stanley 11:46 Differential diagnosis: gastritis, gastroesophageal reflux disease, non-specific abd stanley pain, pancreatitis, urinary tract infection. Data reviewed: vital signs, nurses notes, lab test result(s), EKG, radiologic studies, plain films. Data interpreted: telemetry monitor: rate is 62 beats/min, rhythm is regular. Test interpretation: by ED physician or midlevel provider: ECG, plain radiologic studies. Counseling: I had a detailed discussion with the patient and/or guardian regarding: the historical points, exam findings, and any diagnostic results supporting the discharge/admit diagnosis, lab results, radiology results, the need for further work-up and treatment in the hospital. 14:52 ED course: discharge home per dr jay. [facility] 11/23 10:54 Order name: Basic Metabolic Panel [facility] 11/23 10:54 Order name: CBC with Diff [facility] 11/23 10:54 Order name: LFT's [facility] 11/23 10:54 Order name: Magnesium [facility] 11/23 10:54 Order name: NT PRO-BNP; Complete Time: 12:51 [facility] 11/23 10:54 Order name: PT-INR; Complete Time: 11:56 [facility] 11/23 10:54 Order name: Troponin (emerg Dept Use Only); Complete Time: 12:51 [facility] 11/23 10:54 Order name: Lipase; Complete Time: 12:51 [facility] 11/23 10:54 Order name: Type And Screen [facility] 11/23 10:54 Order name: Basic Metabolic Panel; Complete Time: 12:51 [facility] 11/23 10:54 Order name: CBC with Automated Diff; Complete Time: 18:55 [facility] 11/23 10:54 Order name: Liver (Hepatic) Function; Complete Time: 12:51 [facility] 11/23 10:54 Order name: Magnesium; Complete Time: 12:51 [facility] 11/23 11:35 Order name: Glucose, Ancillary Testing [facility] 11/23 10:54 Order name: XRAY Chest (1 view); Complete Time: 12:51 [facility] 11/23 11:35 Order name: Glucose, Ancillary Testing; Complete Time: 11:42 [facility] 11/23 11:59 Order name: Bb Add On 11/23 12:01 Order name: Packed RBC Leukored [facility] 11/23 13:10 Order name: Glucose, Ancillary Testing; Complete Time: 18:55 [facility] 11/23 13:22 Order name: CBC Smear Scan; Complete Time: 18:55 [facility] 11/23 14:01 Order name: COVID-19 : Document "Date of Symptom Onset" if Symptomatic. 11/23 14:44 Order name: CORONAVIRUS [facility] 11/23 15:25 Order name: SARS-COV-2 RT PCR; Complete Time: 18:55 [facility] 11/23 19:37 Order name: Abdomen 1 View (KUB) XRAY [facility] 11/23 19:37 Order name: Abdomen 1 View (KUB) XRAY: 30 cc gastrograffin to peg [facility] 11/23 20:46 Order name: CT Abd/Pelvis - Without Contrast [facility] 11/23 10:54 Order name: EKG; Complete Time: 10:54 [facility] 11/23 10:54 Order name: Cardiac monitoring; Complete Time: 11: [facility] 11/23 10:54 Order name: EKG - Nurse/Tech; Complete Time: 11: [facility] 11/23 10:54 Order name: IV Saline Lock; Complete Time: : [facility] 11/23 10:54 Order name: Labs collected and sent; Complete Time: 11: [facility] 11/23 10:54 Order name: O2 Per Protocol; Complete Time: 10:55 [facility] 11/23 10:54 Order name: O2 Sat Monitoring; Complete Time: : [facility] 11/23 11:22 Order name: Blood Glucose Level; Complete Time: 11:26 [facility] EC:52 Rate is 61 beats/min. Rhythm is regular. QRS [place] is Normal. MO interval is normal. QRS stanley interval is normal. QT interval is normal. No Q waves. T waves are Normal. No ST changes noted. Clinical impression: NSR w/ Non-specific ST/T Changes and No evidence of ischemia. Interpreted by me. Reviewed by me. Administered Medications: 11:20 Drug: ProTONIX (pantoprazole) 40 mg Route: IVP; Site: right antecubital; vg1 13:07 Follow up: Response: No adverse reaction vg1 11:20 Drug: NS 0.9% 1000 ml Route: IV; Rate: 125 ml/hr; Site: right antecubital; vg1 20:15 Follow up: IV Status: Completed infusion; IV Intake: 700ml vg1 11:29 Drug: D50W 50 ml Route: IVP; Site: right antecubital; vg1 13:06 Follow up: Response: No adverse reaction; Blood sugar is elevated; FSBG 93 vg1 13:18 Drug: amLODIPine 5 mg Route: PO; vg1 20:14 Follow up: Response: No adverse reaction vg1 Disposition: 11/23/20 14:55 Discharged to Home. Impression: Anemia, unspecified, Gastrostomy malfunction - blocked, Hypoglycemia, unspecified, Type 1 diabetes mellitus. - Condition is Stable. - Discharge Instructions: Anemia, Nonspecific, Blood Transfusion, Adult, Type 1 Diabetes Mellitus, Diagnosis, Adult, Hypoglycemia, Gastrostomy Tube Home Guide, Adult, PEG Tube Home Guide, [id number], Hypoglycemia, Uplo-bz-[id number], Type 1 Diabetes Mellitus, Self Care, Adult, Type 1 Diabetes Mellitus, Diagnosis, Adult, Oggy-tx-Khyg, Type 1 Diabetes Mellitus, Self Care, Adult, Xxuj-wp-[id number]. - Medication Reconciliation Form, Thank You Letter, Antibiotic Education, Prescription Opioid Use form. - Follow up: Private Physician; When: 1 - 2 days; Reason: Recheck today's complaints, Continuance of care, Re-evaluation by your physician. Follow up: Oziel Paulson MD; When: 2 - 3 days; Reason: Recheck today's complaints, Continuance of care, Re-evaluation by your physician. - Problem is new. - Symptoms have improved. Signatures: Dispatcher [employer] [facility] Homer Dang MD MD cha Attema, Lee, LINE ASSEMBLY UTILITY WORKER-C LINE ASSEMBLY UTILITY WORKER-Cla1 Tonie Garcia, RN RN vg1 Corrections: (The following items were deleted from the chart) 11:58 11:50 Hospitalization Ordered by [facility] for Inpatient Admission. Preliminary stanley diagnosis is Anorexia; Anemia, unspecified; Hypoglycemia, unspecified; Gastrointestinal hemorrhage, unspecified. Bed requested for Telemetry/MedSurg (Inpatient). Status is Inpatient Admission. Condition is Fair. Problem is new. Symptoms have improved. [facility] 14:28 11:58 11/23/2020 11:50 Hospitalization Ordered by [facility] for Inpatient stanley Admission. Preliminary diagnosis is Anorexia; Anemia, unspecified; Hypoglycemia, unspecified; Gastrointestinal hemorrhage, unspecified - stable. Bed requested for Telemetry/MedSurg (Inpatient). Status is Inpatient Admission. Condition is Fair. Problem is new. Symptoms have improved. stanley 14:53 14:28 11/23/2020 11:50 Hospitalization Ordered by [facility] for Observation. [facility] Preliminary diagnosis is Anorexia; Anemia, unspecified; Hypoglycemia, unspecified; Gastrointestinal hemorrhage, unspecified - stable. Bed requested for Telemetry/MedSurg (observation). Status is Observation. Condition is Fair. Problem is new. Symptoms have improved. [facility] 21:09 14:55 11/23/2020 14:55 Discharged to Home. Impression: Anemia, unspecified; Gastrostomy vg1 malfunction - blocked; Hypoglycemia, unspecified; Type 1 diabetes mellitus. Condition is Stable. Forms are Medication Reconciliation Form, Thank You Letter, Antibiotic Education, Prescription Opioid Use. Follow up: Private Physician; When: 1 - 2 days; Reason: Recheck today's complaints, Continuance of care, Re-evaluation by your physician. Follow up: Oziel Paulson; When: 2 - 3 days; Reason: Recheck today's complaints, Continuance of care, Re-evaluation by your physician. Problem is new. Symptoms have improved. stanley
[2020-11-23 12:03] LABS: Albumin 2.5 g/dL (3.4-5.0); Bilirubin Direct 0.2 mg/dL (0-0.2); Bilirubin Total 0.4 mg/dL (0.2-1.0); Magnesium 2.7 mg/dL (1.8-2.4); Potassium 4.2 mmol/L (3.5-5.1); Protein, Total 7.3 g/dL (6.4-8.2); Troponin (Emerg Dept Use Only) 0.02 ng/mL (0.0-0.045)
--- NOTE | 2020-11-23 12:38 | RAD REPORT ---
EXAM DESCRIPTION: RAD - Chest Single View - 11/23/2020 12:29 pm CLINICAL HISTORY: COUGH Chest pain. COMPARISON: Chest Single View dated 10/22/2020; Chest Single View dated 07/16/2020; Chest Single View d ated 06/06/2020; Abdomen 1 View (KUB) dated 05/28/2020; Chest Abd Pelvis Wo Con dated 10/22/2020 FINDINGS: Portable technique limits examination quality. Significant opacification of the left base is again noted, mildly improved since 10/22/2020 study. Th e heart is mildly prominent with sternotomy wires present.
[2020-11-23] MEDS ORDERED: DIPHENHYDRAMINE 50 MG/ML VIAL ONE (12:57)
[2020-11-23] MEDS ORDERED: NA CHLORIDE 0.9% 250 ML ONE (12:57)
[2020-11-23] MEDS ORDERED: ACETAMINOPHEN 325 MG TABLET ONE (12:57)
[2020-11-23 13:22] LABS: Anisocytosis 1+; Blood Morphology Comment NOTED (NOT SEEN); Platelet Estimate ADEQ; Poikilocytosis 1+; White Blood Cell Scan OK (OK)
[2020-11-23 13:23] LABS: Ovalocytes 1+
[2020-11-23 13:24] LABS: Hypochromasia 1+; Teardrop Cell FEW
[2020-11-23] MEDS ORDERED: AMLODIPINE 5 MG TAB ONE (13:24)
[2020-11-23] MEDS ORDERED: WATER FOR INJ,STERILE 20 ML ONE (19:42)
--- NOTE | 2020-11-23 21:14 | RAD REPORT ---
EXAM DESCRIPTION: CT - Abdomen Pelvis Wo Contrast - 11/23/2020 8:59 pm CLINICAL HISTORY: Abdominal pain COMPARISON: 2019 TECHNIQUE: Computed axial tomography of the abdomen and pelvis was obtained. IV and oral contrast we re not requested. All CT scans are performed using dose optimization technique as appropriate and may include automated exposure control or mA/KV adjustment according to patient size. FINDINGS: The evaluation of solid organs, vessels and bowel is limited secondary to the lack of con trast administration. Contrast has been injected into a percutaneous tube. The tube lies within the stomach. Contrast flows into the duodenum. No extravasation of contrast. Left lower lobe consolidation The liver, spleen, pancreas, adrenals and kidneys appear grossly normal. There is no evidence of diverticulitis. IMPRESSION: Percutaneous tube within the stomach. No extravasation of contrast.
--- NOTE | 2020-11-23 21:17 | RAD REPORT ---
EXAM DESCRIPTION: RAD - Abdomen 1 View (KUB) - 11/23/2020 8:04 pm CLINICAL HISTORY: Abdomen pain. FINDINGS: Tone Artist Apprentice film demonstrates percutaneous tube overlying left upper quadrant. Contrast was administered into the tube. It fills a 9 centimeter structure. There probably are mucosa l folds which indicate that this probably is stomach. However, this is not certain. On delayed images there is no significant change in the location of the contrast within the left upper quadrant. No co ntrast has entered the more distal stomach or duodenum. It is recommended that the patient have a CT scan to definitively showed this is stomach and not extr avasation.
[2020-11-23 21:26] VITALS: TEMP 97.9
[2020-11-23 21:27] VITALS: O2SAT 100
[2020-11-23 21:31] VITALS: BP 159/77
== END 2020-11-23 21:09 | disposition home or self-care (01) ==
LOC: ER 10:19 → ERHOLD 13:23 → UNDOADMIN 13:23 → UNDODISIN 21:09
PROC: 30233N1 Transfusion of Nonautologous Red Blood Cells into Peripheral Vein, Percutaneous Approach (ICD-10-PCS; principal; 2020-11-23)
DX: D64.9 Anemia, unspecified (principal); E11.649 Type 2 diabetes mellitus with hypoglycemia without coma; Z20.822 Contact with and (suspected) exposure to COVID-19; I10 Essential (primary) hypertension; Z79.82 Long term (current) use of aspirin; Z79.4 Long term (current) use of insulin; Z88.8 Allergy status to other drugs, medicaments and biological substances
CPT/HCPCS: 96361; 85025; 80048; 36415; 86900; 83735; 86850; 85610; 86901; 82947 ×2; 80076; 84484; 83690; 83880; 74176; 74018; 71045; 96375; 96374; 99284; 36430; U0003; J1200; C9113; P9016; J7050; J7030

== ENCOUNTER 2020-12-01 14:42 | Inpatient (IN) | payer OTHER ==
--- OUTSIDE RECORDS SUMMARY | 2020-12-01 14:44 | XMS REPORT | Continuity of Care Document ---
:1955 Author Organization [facility] t Address [address] [place] [address] Care Team Providers Name Role Phone Misael MITCHELL, W Attending Clinician Unavailable Dionna ZAFAR, A Attending Clinician Unavailable Doctor [...] Burn Burn Problem Active [facility] [place] [facility] Allergies, Adverse Reactions, Alerts Allergy Allergy Status Severity Reaction(s) Onset Inactive Treating Comm ents Source Name Type Date Date Clinician Linda Regaladoi Active Hallucinatio [facility] TB12 ty to ns ity of adverse [place] reaction Physici s to ans drug (finding ) Family History Family Member Diagnosis Comments Start Date Stop Date Source Mother Family history of [facility] [place] coronary artery Physician s disease Mother Family history of [facility] [place] Anasco's disease Physici ans Mother Family history of [facility] [place] diabetes mellitus Physici ans Mother Family history of [facility] [place] hypertension Physicians Mother Family history of [facility] [place] malignant neoplasm Physic ians Father Family history of [facility] [place] diabetes mellitus Physici ans Father Family history of [facility] [place] hypertension Physicians Father Family history of [facility] [place] coronary artery Physician s disease Sister Family history of [facility] [place] malignant neoplasm Physic ians Brother Family history of [facility] [place] pancreatic cancer Physici ans Social History Smoking Status Start Date Stop Date Source Ex-smoker (finding) [place] [facility] Physicians Medications Ordered Filled Start Stop Current Ordering Indication Dosage Frequency Signature Comments Components Source Medication Medication Date Date Medication? Clinician (SIG) Name Name Sulfamethox Sulfamethox 2020-0 Yes M.A. TAKE 1 Univers azole-Trime azole-Trime 3-17 TABLET ity of thoprim thoprim 00:00: TWICE [place] 800-160 MG 800-160 MG 00 DAILY. for Physici Oral Tablet Oral Tablet 7 days ans Amoxicillin Amoxicillin 2019-0 Yes M.A. 1 tablet Univers -Pot -Pot [...] DAILY. Physici ans Nicotine 14 Nicotine 14 2019- Yes M.A. QD APPLY 1 Univers MG/24HR MG/24HR 3-05 PATCH ity of Transdermal Transdermal 00:00: DAILY [place] Patch 24 Patch 24 00 DIRECTED. Ph ysici Hour Hour ans Atorvastati Atorvastati 2019- Yes M.A. 1 TAKE 1 Univers n [...] ity of Sublingual Sublingual 00:00: UNDER THE [place] Tablet Tablet 00 TONGUE Physici Sublingual Sublingual EVERY 5 ans MINUTES FOR UP TO 3 DOSES NEEDED FOR CHEST PAIN.CALL 911 IF PAIN PERSISTS. HumuLIN R HumuLIN R 2019- Yes M.A. inject 12 Univers 100 UNIT/ML 100 UNIT/ML 3-05 units ity of Injection Injection 00:00: under the [place] Solution Solution 00 skin 2 Physi ci times ans daily before breakfast and dinner. Vital Signs Vital Name Observation Time Observation Value Comments Source Systolic blood 2019-09-29 155 mm[Hg] Location: [facility] 16:23:00 Position: [place] Physician s Sitting Diastolic blood 2019-09-29 68 mm[Hg] Location: [facility] 16:23:00 Position: [place] Physician s Sitting Body height 2019-09-29 72 [in_us] [facility] :23:00 [place] [facility] s Weight 2019-09-29 163 [lb_av] [facility] :23:00 [place] [facility] s Body mass index 2019-09-29 22.11 kg/m2 [place] o f (BMI) [Ratio] 16:23:00 [place] [facility] Body temperature 2019-09-29 97.9 [degF] Method: Oral [facility] :23: [place] [facility] Heart Rate 2019-09-29 75 /min [facility] :23:00 [place] [facility] Procedures Procedure Date / Time Performing Source Performed Clinician [B] CMP 2019-09-28 [facility] 00:00:00 [place] [facility] [B] CBC 2019-09-28 [facility] 00:00:00 [place] [facility] History of Cyst excision [facility] History of Debridement Univers y [facility] History of Hand Surgery Universi ty [facility] History of [facility] History of University of Esophagogastroduodenoscopy [place] [facility] History of Colonoscopy Univers y [facility] History of Surgical removal of U niversity of foreign body [place] [facility] History of CABG [facility] Encounters Start End Encounter Admission Attending Care Care Encounter Source Date/Time Date/Time Type Type Clinicians Facility Department ID 2020-11-30 2020-11-30 Patient Jatin Douglas [id number] 00:00:00 00:00:00 Outreach Hugh Mcnally [id number] [place] [id number] 2020-11-22 2020-11-22 Nurse ALPHONSE Villareal [id number] 00:00:00 00:00:00 Triage Liane Artemio VILLAGOMEZ [id number] [facility] [id number] 2020-11-16 2020-11-16 Orders Doctor ALPHONSE [id number] 00:00:00 00:00:00 Only Unassigned, HERNANDO [id number] [place] [facility] [id number] 2020-11-11 2020-11-11 Telephone Charly RUST [id number] 00:00:00 00:00:00 Derrick PRIMARY [id number] CARE [id number] [facility] [id number] 2020-11-10 2020-11-10 Transition Jatin Campbell [id number] 00:00:00 00:00:00 of Care Nathalia Mcnally [id number] [place] [id number] 2020-11-10 2020-11-10 Refill Laurie TNMARLEEN [id number] 00:00:00 00:00:00 Haris PRIMARY [id number] Scott CARE [id number] [place] [id number] 2019-09-29 2019-09-29 Appointmen ELMO, [facility] [id number] 15:00:00 15:00:00 tIGOR MADDEN M.D. Advanced [facility] [place]ella COSTA M.D. Failure - Physic i [place] ans Results This patient has no known results.
[2020-12-01 16:45] LABS: Absolute Lymphocytes (CBC) 1.3 K/uL (0.7-4.9); Basophils % 0.8 % (0-1.3); Hematocrit 20.3 % (39.6-49.0); Lymphocytes % 18.3 % (15.3-44.8); MPV 10.1 fL (7.6-11.3)
[2020-12-01 16:46] LABS: Albumin 2.4 g/dL (3.4-5.0); Bilirubin Direct 0.1 mg/dL (0-0.2); Bilirubin Total 0.7 mg/dL (0.2-1.0); Potassium 4.7 mmol/L (3.5-5.1); Protein, Total 6.4 g/dL (6.4-8.2); Troponin (Emerg Dept Use Only) 0.02 ng/mL (0.0-0.045)
[2020-12-01] MEDS ORDERED: D50W 25 GM/50 ML SYRINGE IV ONE ×2 (17:00→23:13)
[2020-12-01 17:09] LABS: Urine Blood Negative (Negative); Urine Glucose Negative (Negative); Urine Protein 2+ (Negative); Urine Specific Gravity 1.015 (1.005-1.030)
[2020-12-01 17:22] LABS: Urine Bacteria NONE SEEN /HPF (NONE SEEN); Urine Mucus 1+ /HPF (NONE SEEN); Urine RBC <5 /HPF (NONE SEEN)
--- NOTE | 2020-12-01 17:40 | ER ---
Nurse's Notes [facility] Name: Mumtaz Anderson Age: 65 yrs Sex: Male : 1955 Arrival Date: 12/01/2020 Time: 14:[address] Private MD: Diagnosis: Dehydration;Diarrhea, unspecified;Hypoglycemia, unspecified;Pneumonia, unspecified organism Presentation: 12/01 14:49 Chief complaint: Patient states: called EMS patient heart rate was 34 today. Since zb yesterday he blood pressure, heart rate, and sugar have been fluctuating on the low side. BGL was 79 for EMS. also states that pain has been c/o of tenderness at the PEG tube sight. PEG tube was placed last week by MD Dang. Coronavirus screen: At this time, the client does not indicate any symptoms associated with coronavirus-19. Ebola Screen: No symptoms or risks identified at this time. Initial Sepsis Screen: Does the patient meet any 2 criteria? No. Patient's initial sepsis screen is negative. Does the patient have a suspected source of infection? No. Patient's initial sepsis screen is negative. Risk Assessment: Do you want to hurt yourself or someone else? Patient reports no desire to harm self or others. Onset of symptoms was December 01, 2020. 14:49 Acuity: VIDAL 3 zb 14:49 Method Of Arrival: EMS: [facility] zb Triage Assessment: 15:00 General: Appears in no apparent distress. Behavior is calm, cooperative, appropriate zb for age. Pain: Complains of pain in abdomen Pain currently is 1 out of 10 on a pain scale. Neuro: Level of Consciousness is awake, alert, obeys commands, Oriented to person, place, time, situation. Cardiovascular: Capillary refill < 3 seconds Patient's skin is warm and dry. Respiratory: Airway is patent Respiratory effort is even, unlabored, Respiratory pattern is regular, symmetrical. GI: PEG tube in place, clamped. C/D/I Bowel sounds present X 4 quads. Reports diarrhea. Derm: Skin is fragile, is thin, Skin is clammy, Skin is pale. Musculoskeletal: Range of motion: limited in bilateral legs. Historical: - Allergies: 14:57 Nexium D; zb 14:57 Spironolactone; zb 14:57 Latex, Natural Rubber; zb - Home Meds: 14:57 aspirin 81 mg Oral chew [Active]; atorvastatin 80 mg Oral tab 1 tab once daily zb [Active]; clopidogrel 75 mg Oral tab 1 tab once daily [Active]; escitalopram oxalate 20 mg Oral tab 1 tab once daily [Active]; ferrous sulfate 325 mg (65 mg iron) Oral tab three times a day [Active]; - PMHx: 14:57 Anemia; CAD; CHF; COPD; Diabetes - IDDM; Hypertension; Myocardial infarction; Seizures; zb Parkinsons; - PSHx: 14:57 left hip replacement; CABG; zb - Immunization history:: Adult Immunizations up to date. - Social history:: Smoking status: unknown. - Family history:: not pertinent. - Hospitalizations: : No recent hospitalization is reported. Screenin:58 Abuse screen: Denies threats or abuse. Denies injuries from another. Nutritional zb screening: No deficits noted. Tuberculosis screening: No symptoms or risk factors identified. Fall Risk No fall in past 12 months (0 pts). Secondary diagnosis (15 points) impaired mobility, No IV (0 pts). Ambulatory Aid- None/Bed Rest/Nurse Assist (0 pts). Gait- Weak (10 pts.). Mental Status- Oriented to own ability (0 pts). Total Walter Fall Scale indicates High Risk Score (45 or more points). Fall prevention measures have been instituted. Side Rails Up X 2 Placed Close to Nursing Station Frequent Obs/Assessments Occuring Family Present and informed to notify staff if the need to leave the bedside As available patient and family educated on Fall Prevention Program and Strategies. Assessment: 15:49 Reassessment: blood sugar 75 notified ECP. zb 17:20 Reassessment: ECP at bedside discussing care of patient. zb 17:53 Reassessment: Hospitalist at bedside. zb 18:00 Reassessment: Patient appears in no apparent distress at this time. Patient and/or zb family updated on plan of care and expected duration. Pain level reassessed. Patient is alert, oriented x 3, equal unlabored respirations, skin warm/dry/pink. Patient repositioned. family remains at bedside. 19:00 Reassessment: Patient appears in no apparent distress at this time. Patient and/or zb family updated on plan of care and expected duration. Pain level reassessed. Patient is alert, oriented x 3, equal unlabored respirations, skin warm/dry/pink. Patient repositioned family remains at bedside. 20:00 Reassessment: Patient appears in no apparent distress at this time. Patient and/or zb family updated on plan of care and expected duration. Pain level reassessed. Patient is alert, oriented x 3, equal unlabored respirations, skin warm/dry/pink. IV infusing. 21:00 Reassessment: Patient appears in no apparent distress at this time. Patient and/or zb family updated on plan of care and expected duration. Pain level reassessed. Patient is alert, oriented x 3, equal unlabored respirations, skin warm/dry/pink. IV fluid infusing. Reassessment: Blood infusing. no c/o sob or pain. no adverse effect. will continue to monitor see blood transfusion flowsheet. 22:22 Reassessment: BGL 79. notified patient that room is ready. zb 22:30 Reassessment: notified Nick hospitalist. verbal order for 1/2 amp of dextrose. zb Vital Signs: 14:49 BP 128 / 92; Pulse 43; Resp 16; Temp 99.0; Pulse Ox 99% on R/A; Weight 58.97 kg; Height zb 6 ft. 3 in. (190.50 cm); Pain 1/10; 15:50 BP 138 / 83; Pulse 42; Resp 16; Pulse Ox 99% on R/A; zb 16:30 BP 136 / 58; Pulse 46; Resp 18; Pulse Ox 100% on R/A; zb 17:00 Pulse 57; Resp 18; Pulse Ox 100% on R/A; zb 18:00 BP 157 / 64; Pulse 58; Resp 18; Pulse Ox 99% on R/A; zb 19:00 BP 155 / 64; Pulse 58; Resp 16; Pulse Ox 99% on R/A; zb 20:00 BP 149 / 70; Pulse 58; Resp 16; Pulse Ox 100% on R/A; zb 21:00 BP 135 / 71; Pulse 58; Resp 18; Pulse Ox 100% ; zb 22:00 BP 144 / 62; Pulse 57; Resp 16; Pulse Ox 99% on R/A; zb 14:49 Body Mass Index 16.25 (58.97 kg, 190.50 cm) zb ED Course: 14:48 Patient arrived in ED. zb 14:50 Arm band placed on. zb 14:55 Triage completed. zb 14:57 EKG done, by ED staff, reviewed by Reinaldo Carrera MD. zb 14:58 Patient has correct armband on for positive identification. Placed in gown. Bed in low zb position. Call light in reach. Side rails up X2. Adult w/ patient. salt washer on. Pulse ox on. NIBP on. Door closed. Noise minimized. 15:00 Reinaldo Carrera MD is Attending Physician. rn 15:48 Ruby Austin RN is Primary Nurse. zb 15:50 Missed attempt(s): 20 gauge in right antecubital area. Missed attempt(s): 20 gauge in zb right forearm. 16:00 Missed attempt(s): 22 gauge in left forearm. Bleeding controlled, band aid applied, aa5 catheter tip intact. 16:02 Missed attempt(s): 22 gauge in left forearm. Bleeding controlled, band aid applied, aa5 catheter tip intact. 16:09 Initial lab(s) drawn, by pa, sent to lab. aa5 16:15 Inserted saline lock: 22 gauge in right upper arm, using aseptic technique. ,using aa5 aseptic technique. IV inserted by Venkat Richey RN. 17:35 CT Abd/Pelvis - IV Contrast Only In Process Unspecified. EDMS 17:38 Harvey Cortes MD is Hospitalizing Provider. rn 22:24 No provider procedures requiring assistance completed. Patient admitted, IV remains in zb place. Administered Medications: 17:00 Drug: D50W 50 ml Route: IVP; Site: left forearm; zb 22:26 Follow up: Response: No adverse reaction; Blood sugar is elevated zb 17:26 CANCELLED (Duplicate Order): D5-1/2 NS 1000 ml IV at 125 ml/hr continuous rn 18:30 Drug: Rocephin (cefTRIAXone) 1 grams Route: IV; Rate: calculated rate; Site: right zb upper arm; 18:35 Follow up: Response: No adverse reaction; IV Status: Completed infusion; IV Intake: 10mlzb 18:43 Drug: D5-1/2 NS 500 ml Route: IV; Rate: 100 ml/hr; Site: right upper arm; zb 20:00 Follow up: Response: No adverse reaction; IV Status: IV converted to saline lock; IV zb Intake: 200ml 20:02 Drug: Zithromax (azithromycin) 500 mg Route: IVPB; Infused Over: 1 hrs; Site: right zb upper arm; 21:02 Follow up: Response: No adverse reaction; IV Status: Completed infusion; IV Intake: zb 250ml 22:59 Drug: D50W 25 ml Route: IVP; Site: right upper arm; zb 12/02 00:07 Follow up: Response: No adverse reaction; Other zb Point of Care Testing: Guaiac: 12/01 17:20 Stool Guaiac: Negative; Stool Hemoccult Control: Pass; wooden furniture polisher: 18:35 IV: 10ml; Total: 10ml. zb 21:02 IV: 250ml; Total: 260ml. zb Outcome: 17:39 Decision to Hospitalize by Provider. rn 22:25 Admitted to Med/surg accompanied by nurse, room 218, on monitor, with chart, Report zb called to ANDRADE Martinez 22:25 Condition: stable 22:25 Instructed on the need for admit. 23:11 Patient left the ED. ea Signatures: Dispatcher [employer] EDMS Reinaldo Carrera MD MD rn Calderon, Audri RN RN Cass Garcia RN RN ea Brown, Zipporah, RN RN zelsa Corrections: (The following items were deleted from the chart) 15:55 15:00 GI: PEG tube in place, clamped. C/D/I Bowel sounds present X 4 quads. zb zb
--- NOTE | 2020-12-01 17:40 | EDPHYS ---
Physician Documentation [facility] Name: Mumtaz Anderson Age: 65 yrs Sex: Male : 1955 Arrival Date: 12/01/2020 Time: 14:[address] Private MD: ED Physician Reinaldo Carrera HPI: 12/01 15:21 This 65 yrs old Male presents to ER via EMS with complaints of Low Blood rn Sugar - low blood pressure, and low heart rate. 15:21 reports noticed today after therapy was having low heart rate and recently having rn episodes of low blood sugar. + non-bloody diarrhea. Chronic anemia with neg EGD and colonoscopy by Dr. Modi 5 months ago. Reports recently swapped feeding tube for larger tube, some soreness around stoma, but otherwise no abd pain. No fever. Doesn't eat anything by mouth. . Onset: The symptoms/episode began/occurred today. Severity of symptoms: At their worst the symptoms were mild in the emergency department the symptoms are unchanged. The patient has not experienced similar symptoms in the past. The patient has been recently seen by a physician:. Historical: - Allergies: 14:57 Nexium D; zb 14:57 Spironolactone; zb 14:57 Latex, Natural Rubber; zb - Home Meds: 14:57 aspirin 81 mg Oral chew [Active]; atorvastatin 80 mg Oral tab 1 tab once daily zb [Active]; clopidogrel 75 mg Oral tab 1 tab once daily [Active]; escitalopram oxalate 20 mg Oral tab 1 tab once daily [Active]; ferrous sulfate 325 mg (65 mg iron) Oral tab three times a day [Active]; - PMHx: 14:57 Anemia; CAD; CHF; COPD; Diabetes - IDDM; Hypertension; Myocardial infarction; Seizures; zb Parkinsons; - PSHx: 14:57 left hip replacement; CABG; zb - Immunization history:: Adult Immunizations up to date. - Social history:: Smoking status: unknown. - Family history:: not pertinent. - Hospitalizations: : No recent hospitalization is reported. ROS: 15:21 Constitutional: Negative for fever, chills, and weight loss, Eyes: Negative for injury, rn pain, redness, and discharge, Neck: Negative for injury, pain, and swelling, Cardiovascular: Negative for chest pain, palpitations, and edema, Respiratory: Negative for shortness of breath, cough, wheezing, and pleuritic chest pain, Abdomen/GI: Negative for abdominal pain, nausea, vomiting, and constipation, Back: Negative for injury and pain, : Negative for injury, bleeding, discharge, and swelling, MS/Extremity: Negative for injury and deformity, Skin: Negative for injury, rash, and discoloration, Neuro: Negative for headache, numbness, tingling, and seizure. Exam: 15:21 Constitutional: Thin male, no acute distress Head/Face: Normocephalic, atraumatic. rn Eyes: Periorbital areas with no swelling, redness, or edema. ENT: dry MM Cardiovascular: Irregular rhythm, bradycardic Respiratory: No increased work of breathing, no retractions or nasal flaring. Abdomen/GI: soft, non-tender, + feeding tube just left of midline, no erythema or drainage. Skin: Warm, dry MS/ Extremity: Pulses equal, no cyanosis. Neuro: Awake and alert, GCS 15 Vital Signs: 14:49 BP 128 / 92; Pulse 43; Resp 16; Temp 99.0; Pulse Ox 99% on R/A; Weight 58.97 kg; Height zb 6 ft. 3 in. (190.50 cm); Pain 1/10; 15:50 BP 138 / 83; Pulse 42; Resp 16; Pulse Ox 99% on R/A; zb 16:30 BP 136 / 58; Pulse 46; Resp 18; Pulse Ox 100% on R/A; zb 17:00 Pulse 57; Resp 18; Pulse Ox 100% on R/A; zb 18:00 BP 157 / 64; Pulse 58; Resp 18; Pulse Ox 99% on R/A; zb 19:00 BP 155 / 64; Pulse 58; Resp 16; Pulse Ox 99% on R/A; zb 20:00 BP 149 / 70; Pulse 58; Resp 16; Pulse Ox 100% on R/A; zb 21:00 BP 135 / 71; Pulse 58; Resp 18; Pulse Ox 100% ; zb 22:00 BP 144 / 62; Pulse 57; Resp 16; Pulse Ox 99% on R/A; zb 14:49 Body Mass Index 16.25 (58.97 kg, 190.50 cm) zb MDM: 15:00 Patient medically screened. rn 17:21 ED course: Hemoccult negative, denies any dark stool or rectal bleeding, + chronic rn anemia and iron deficiency anemia, will likely transfuse atleast 1 unit of blood. Will admit to Dr. Cortes for further care. . 17:35 Differential Diagnosis electrolyte disorder, dehydration, colitis, GI bleed, chronic rn anemia. . Data reviewed: vital signs, nurses notes, lab test result(s), and as a result, I will admit patient. Counseling: I had a detailed discussion with the patient and/or guardian regarding: the historical points, exam findings, and any diagnostic results supporting the discharge/admit diagnosis, lab results, the need for further work-up and treatment in the hospital. Admission orders: after a detailed discussion of the patient's condition and case, the admit orders are written by me. ED course: Pt with hemoglobin 6.7, 1 point drop from last week, also with chronic anemia and iron deficiency anemia, hemoccult negative, + dehydration and not keeping up with fluids lost in diarrhea. Will transfuse single unit given < 7, and admit to Dr. Crotes for electrolyte replacement and IV hydration. . 12/01 15:01 Order name: Basic Metabolic Panel 12/01 15:01 Order name: CBC with Diff 12/01 15:01 Order name: Hepatic Function 12/01 15:01 Order name: Lipase 12/01 15:01 Order name: Troponin (emerg Dept Use Only); Complete Time: 17:09 12/01 15:01 Order name: Lactate; Complete Time: 17:09 12/01 15:01 Order name: Urine Culture 12/01 15:01 Order name: Urine Microscopic Only; Complete Time: 17:25 12/01 15:01 Order name: Basic Metabolic Panel; Complete Time: 17:09 EDOR 12/01 15:01 Order name: CBC with Automated Diff [facility] 12/01 15:01 Order name: Liver (Hepatic) Function; Complete Time: 17:09 EDOR 12/01 15:01 Order name: Lipase; Complete Time: 17:09 EDOR 12/01 16:50 Order name: Glucose, Ancillary Testing; Complete Time: 17:09 EDOR 12/01 15:01 Order name: CT Abd/Pelvis - IV Contrast Only; Complete Time: 18:08 12/01 17:09 Order name: Urine Dipstick-Ancillary; Complete Time: 17:20 EDOR 12/01 17:46 Order name: ABO/RH typing [facility] 12/01 17:46 Order name: Antibody Screen [facility] 12/01 17:46 Order name: Packed RBC Leukored [facility] 12/01 18:08 Order name: CBC with Automated Diff [facility] 12/01 18:08 Order name: CBC with Automated Diff [facility] 12/01 18:08 Order name: Comprehensive Metabolic Panel [facility] 12/01 18:08 Order name: Comprehensive Metabolic Panel [facility] 12/01 18:43 Order name: Blood Culture Adult (2) 12/01 19:07 Order name: COVID-19 : Document "Date of Symptom Onset" if Symptomatic. 12/01 19:28 Order name: CORONAVIRUS [facility] 12/01 20:19 Order name: SARS-COV-2 RT PCR [facility] 12/01 20:47 Order name: CBC Smear Scan [facility] 12/01 22:32 Order name: Glucose, Ancillary Testing [facility] 12/01 15:01 Order name: IV Saline Lock; Complete Time: 16:18 12/01 15:01 Order name: Labs collected and sent; Complete Time: 16:18 rn 12/01 15:01 Order name: Urine Dipstick-Ancillary (obtain specimen); Complete Time: 17:30 rn 12/01 15:01 Order name: Glucose Level; Complete Time: 15:49 12/01 15:01 Order name: EKG; Complete Time: 15:02 12/01 15:01 Order name: EKG - Nurse/Tech; Complete Time: 15:42 rn 12/01 18:10 Order name: XRAY Chest (1 view) rn 12/01 19:14 Order name: RAD [facility] Administered Medications: 17:00 Drug: D50W 50 ml Route: IVP; Site: left forearm; zb 22:26 Follow up: Response: No adverse reaction; Blood sugar is elevated zb 17:26 CANCELLED (Duplicate Order): D5-1/2 NS 1000 ml IV at 125 ml/hr continuous rn 18:30 Drug: Rocephin (cefTRIAXone) 1 grams Route: IV; Rate: calculated rate; Site: right zb upper arm; 18:35 Follow up: Response: No adverse reaction; IV Status: Completed infusion; IV Intake: 10mlzb 18:43 Drug: D5-1/2 NS 500 ml Route: IV; Rate: 100 ml/hr; Site: right upper arm; zb 20:00 Follow up: Response: No adverse reaction; IV Status: IV converted to saline lock; IV zb Intake: 200ml 20:02 Drug: Zithromax (azithromycin) 500 mg Route: IVPB; Infused Over: 1 hrs; Site: right zb upper arm; 21:02 Follow up: Response: No adverse reaction; IV Status: Completed infusion; IV Intake: zb 250ml 22:59 Drug: D50W 25 ml Route: IVP; Site: right upper arm; zb 12/02 00:07 Follow up: Response: No adverse reaction; Other zb Point of Care Testing: Guaiac: 12/01 17:20 Stool Guaiac: Negative; Stool Hemoccult Control: Pass; rn Disposition: 12/01/20 17:39 Hospitalization ordered by Harvey Cortes for Inpatient Admission. Preliminary diagnosis are Dehydration, Diarrhea, unspecified, Hypoglycemia, unspecified, Pneumonia, unspecified organism. - Bed requested for Telemetry/MedSurg (Inpatient). - Status is Inpatient Admission. ea - Condition is Stable. - Problem is new. - Symptoms have improved. Signatures: Dispatcher [employer] EDMS Reinaldo Carrera MD MD rn Lasagna, Tonya, RN RN tl1 Cass Vergara RN RN ea Brown, Zipporah, RN RN zb Corrections: (The following items were deleted from the chart) 17:26 17:25 D5-1/2 NS 1000 ml IV at 125 ml/hr continuous ordered. rn rn 18:11 17:39 Hospitalization Ordered by Harvey Cortes MD for Inpatient Admission. Preliminary rn diagnosis is Dehydration; Diarrhea, unspecified; Hypoglycemia, unspecified. Bed requested for Telemetry/MedSurg (Inpatient). Status is Inpatient Admission. Condition is Stable. Problem is new. Symptoms have improved. rn 21:41 18:11 12/01/2020 17:39 Hospitalization Ordered by Harvey Cortes MD for Inpatient tl1 Admission. Preliminary diagnosis is Dehydration; Diarrhea, unspecified; Hypoglycemia, unspecified; Pneumonia, unspecified organism. Bed requested for Telemetry/MedSurg (Inpatient). Status is Inpatient Admission. Condition is Stable. Problem is new. Symptoms have improved. rn 23:11 21:41 12/01/2020 17:39 Hospitalization Ordered by Harvey Cortes MD for Inpatient ea Admission. Preliminary diagnosis is Dehydration; Diarrhea, unspecified; Hypoglycemia, unspecified; Pneumonia, unspecified organism. Bed requested for Telemetry/MedSurg (Inpatient). Status is Inpatient Admission. Condition is Stable. Problem is new. Symptoms have improved. tl1
--- NOTE | 2020-12-01 17:57 | P.HP ---
Certification for Inpatient Patient admitted to: Inpatient With expected LOS: >2 Midnights Practitioner: I am a practitioner with admitting privileges, knowledge of patient current condition, hospital course, and medical plan of care. Services: Services provided to patient in accordance with Admission requirements found in Title 42 Section 412.3 of the Code of Federal Regulations Patient History Date of Service: 12/01/20 Reason for admission: Diarrhea/ Anemia History of Present Illness: 65-year-old male in his past medical history of diabetes, hypertension, hyper lipidemia, CAD , COPD, came to ER with low blood pressure and heart rate associated with generalized weakness and dehydration. patient was recently been admitted here of with UTI and developed aspiration pneumonia , had to be intubatedand was transferred to [facility] and he underwent PEG placement and was discharged. he has a history of chronic anemia for which he underwent an EGD and colonoscopy which were within normal limits as per the family. patient suppose to get a small bowel Pilicam by Dr Modi . Denies any pain . No fever or chills. No chest pain or shortness of breath. The patient has been getting tube feeding with Glucerna. and is complaining of diarrhea for the last 2 days. no melena noted. The patient was assessed in the ER and was found to have anemia and dehydration and was admitted for further management. Allergies spironolactone Adverse Reaction (Verified 05/18/20 16:02) Anaphylaxis "nexia d" Allergy (Mild, Uncoded 04/04/19 00:26) Unknown Home medications list reviewed: Yes Home Medications: Aspirin [Adult Aspirin Regimen] 81 mg PO BEDTIME 06/04/20 Atorvastatin Calcium [Lipitor] 80 mg PO BEDTIME 06/04/20 Doxazosin [Cardura*] 2 mg PO BEDTIME 06/04/20 Ferrous Sulfate [Ferrous Sulfate*] 325 mg PO BID 06/04/20 Furosemide [Lasix*] 40 mg PO BIDL 06/04/20 Metformin ER [Glucophage ER*] 500 mg PO BID 06/04/20 Metoprolol Succinate 50 mg PO DAILY 06/04/20 Ferrous Sulfate [Ferrous Sulfate*] 325 mg PO 1200 #120 tab 06/16/20 Lidocaine 4% Patch [Lidoderm 5% Patch*] 2 patch TOP DAILY patch 06/16/20 Ondansetron [Zofran (Odt)*] 4 mg PO Q6H PRN #45 tab 12/03/20 Tramadol HCl [Ultram] 50 mg PO Q4HP PRN #60 tablet 06/16/20 Acetaminophen [Tylenol Extra Strength] 500 mg PO Q4H PRN 07/16/20 Amlodipine [Norvasc*] 5 mg PO 1200 07/16/20 Calcitonin [Miacalcin Nasal [place]*] 1 spray IH 1200 07/16/20 Calcitrol [Rocaltrol*] 0.5 mcg PO 1200 07/16/20 Clopidogrel Bisulfate [Plavix*] 75 mg PO DAILY 07/16/20 Cranberry Conc/C/Bacill Coag [Cranberry Tablet] 1 tab PO 1200 07/16/20 Escitalopram [Lexapro*] 30 mg PO DAILY 07/16/20 Gabapentin 300 mg PO BEDTIME 07/16/20 Insulin Glargine Human [Lantus*] 8 units SQ BEDTIME 07/16/20 Trazodone [Desyrel*] 150 mg PO BEDTIME 07/16/20 Amoxicillin/Potassium Clav [Augmentin 875-125 Tablet] 1 each PO BID 7 Days #14 tablet 07/19/20 - Past Medical/Surgical History Diabetic: Yes Past Medical History: Reviewed- Non-Contributory -: Diabetes mellitus type 2, insulin-dependent -: CAD -: Hypertension -: Hyperlipidemia -: COPD -: Tobacco abuse -: Fracture t12 L3 -: Lung disease -: GI disease Past Surgical History: Reviewed- Non-Contributory -: Knee surgery -: I&D lower right buttock -: hiatal hernia repair -: I and D to the left foot -: Left Bipolar Hemiarthroplasty 04/06/19 -: Hip surgery -: CABG -: hand sx Psychosocial/ Personal History: Patient is single. He lives with his son. - Family History Family History: Reviewed- Non-Contributory - Family History Father -: Heart disease, Hypertension, Lung disease, GI disease, Diabetes, Cancer, Other (see notes) Notes: parkinson's disease Mother -: Heart disease, Hypertension, Diabetes, Cancer Sister -: Cancer - Social History Smoking Status: Never smoker Alcohol use: No CD- Drugs: No Caffeine use: Yes Review of Systems 10-point ROS is otherwise unremarkable Physical Examination - Vital Signs Temperature: 97.8 F Blood Pressure: 112/68 Pulse: 76 Respirations: 18 - Physical Exam General: Alert, In no apparent distress, Cachectic HEENT: Atraumatic, Normocephalic Neck: Supple, 2+ carotid pulse no bruit Respiratory: Clear to auscultation bilaterally, Normal air movement Cardiovascular: Regular rate/rhythm, Normal S1 S2 Capillary refill: <2 Seconds Gastrointestinal: Soft and benign, W/out hepatosplenomegaly Musculoskeletal: No clubbing, No swelling Integumentary: No rashes, No breakdown Neurological: Normal speech, Normal strength at 5/5 x4 extr Lymphatics: No axilla or inguinal lymphadenopathy - Studies Laboratory Data (last 24 hrs) 12/01/20 16:09: WBC 7.40, Hgb 6.7 L*, Hct 20.3 L*, Plt Count 158 D 12/01/20 16:09: Sodium 127 L, Potassium 4.7, BUN 56 H, Creatinine 0.94, Glucose 73 L, Total Bilirubin 0.7, AST 29, ALT 40, Alkaline Phosphatase 95, Lipase 361 Assessment and Plan - Problems (Diagnosis) (1) Acute blood loss anemia Current Visit: No Status: Acute (2) BPH (benign prostatic hyperplasia) Current Visit: No Status: Acute (3) Bradycardia Current Visit: No Status: Acute (4) Cachexia Current Visit: No Status: Acute (5) Diabetes Current Visit: No Status: Acute (6) Hypertension Onset Date: 11/05/16 Current Visit: No Status: Chronic Qualifiers: Hypertension type: essential hypertension Qualified Code(s): I10 - Essential (primary) hypertension - Plan Anemia possibly due to GI blood loss Hyponatremia Dehydration Diabetes Hypertension Mild protein calorie malnutrition Plan Monitor under telemetry Will start on IV hydration transfuse 1 unit PRBC Monitor CBC daily and transfuse p.r.n. GI consult start on PPI Continue home medications and titrate as needed On aspirin and Plavix Will get a stool occult blood Will hold antiplatelet if FOBT is positive antihypertensives titrated Insulin sliding scale Monitor electrolytes and replace accordingly will get a nutrition consult GI/mechanical DVT prophylaxis Advanced directives full code - Advance Directives Does patient have a Living Will: No Does patient have a Durable POA for Healthcare: Yes Time Spent Managing Pts Care (In Minutes): 42
[2020-12-01] MEDS ORDERED: ONDANSETRON 4 MG/2 ML VIAL IV PRN (18:05)
[2020-12-01] MEDS ORDERED: MORPHINE 2 MG/ML SYR IV PRN (18:05)
--- NOTE | 2020-12-01 18:05 | RAD REPORT ---
EXAM DESCRIPTION: CT - Abdomen Pelvis W Contrast - 12/01/2020 5:35 pm CLINICAL HISTORY: diarrhea, weakness COMPARISON: Abdomen Pelvis Wo Contrast dated 11/23/2020; Chest Single View dated 11/23/2020; Abdomen 1 View (KUB) dated 11/23/2020 TECHNIQUE: Biphasic, helical CT imaging of the abdomen and pelvis was performed following 100 ml non -ionic IV contrast. No oral contrast administered. All CT scans are performed using dose optimization technique as appropriate and may include automated exposure control or mA/KV adjustment according to patient size. FINDINGS: Left hemidiaphragm is elevated. No pericardial thickening or effusion seen. There is a 5-6 centimeter sized area of consolidation at the left base only partially evaluated on this study. Left base pneumonia is suspected. This could be infectious or aspiration. Finding is not fully evaluated on this study. No focal liver abnormality seen. No gallbladder or biliary tree abnormality seen. Gallstones can be o ccult on CT imaging. Biliary tree is not outside of normal range. No acute pancreatic process identif iable. Approximately 3 centimeter wedge-shaped area of diminished attenuation is present in the lateral asp ect of the spleen. Spleen can show variability in enhancement. An area of splenic infarction is possi ble as well. No subcapsular or pericapsular hematoma seen. Symmetric renal function is seen with no hydronephrosis or suspicious renal mass. No pyelonephritis o r acute parenchymal process. Well filled urinary bladder shows no abnormality. Pelvic floor assessmen t is limited due to the spray artifact from the left hip prosthesis. No adrenal abnormalities. PEG tube is in place in the left upper quadrant. Balloon tip appears well positioned within the lumen of the stomach. No abscess or abnormal fluid collection between the stomach and skin surface. The so ft tissues in this region are not clearly different from the short interval November 23 study. No air in t he soft tissues. No dilated small bowel loops. Moderate stool volume is seen throughout the colon. A focal colon primary process is not suspected. The appendix is not clearly defined. Acute appendicitis is not suspected. No free air or pneumatosis. Trace amount of free fluid in the dependent portion of the pelvis. No hernia, mass or bulky lymphadenopathy. Disc and bone degenerative changes are present. Fluid retention is present in the subcutaneous fatty tissues. IMPRESSION: Suspected consolidated pneumonia in the left lung base only partially imaged on this richar dy. No acute findings at the PEG tube site. Soft tissues between the stomach and the skin are similar to the November 23 study. No abscess or air collections seen. No gallbladder, biliary tree or pancreatic acute finding. Gallstones and duct stones can be occult. Fluid retention in the subcutaneous fatty tissues with trace amount of free fluid in the peritoneal c avity. Failure or volume overload are possible.
[2020-12-01] MEDS ORDERED: ACETAMINOPHEN 500 MG TAB PO PRN (18:07)
[2020-12-01] MEDS ORDERED: GLUCAGON 1 MG/VIAL IM PRN (18:07)
[2020-12-01] MEDS ORDERED: TRAMADOL HCL 50 MG TAB PO PRN (18:07)
[2020-12-01] MEDS ORDERED: AZITHROMYCIN 500 MG INJ IVPB ONE (18:40)
[2020-12-01] MEDS ORDERED: CEFTRIAXONE/SWI 1gm 1 GM/10 ML SYR ONE (18:40)
[2020-12-01] MEDS ORDERED: NA CHLORIDE 0.9% 250 ML ONE ×2 (18:40→21:42)
[2020-12-01] MEDS ORDERED: D5 0.45 NS 1,000 ML IV ONE (18:41)
[2020-12-01] MEDS ORDERED: NA CHLORIDE 0.9% 1,000 ML IV SCH (19:00)
--- NOTE | 2020-12-01 19:13 | RAD REPORT ---
EXAM DESCRIPTION: RAD - Chest Single View - 12/01/2020 6:28 pm CLINICAL HISTORY: possible pneumoniahistory of CHF, COPD and hypertension COMPARISON: CT study December 01, portable chest November 23 TECHNIQUE: AP portable chest image was obtained 12/01/2020 6:28 pm . FINDINGS: Chronic interstitial lung disease is present. Focal opacification is present retrocardiac left base near the elevated left hemidiaphragm. This is the correlate to the CT finding and is suspic ious for pneumonia. No consolidation of the right lung field. There is a skin fold artifact coursing along the lateral aspect of the chest from base to apex. A pneumothorax is not suspected. Heart size is upper normal. Vasculature is mildly prominent. Sternotomy wires are in place. No measurable pleura l effusion. No acute bony abnormality seen. No acute aortic findings suspected. IMPRESSION: Left lung base pneumonia.
[2020-12-01 20:46] LABS: Anisocytosis 2+; Blood Morphology Comment NOTED (NOT SEEN); Platelet Estimate ADEQ; Poikilocytosis 2+; White Blood Cell Scan OK (OK)
[2020-12-01 20:47] LABS: Ovalocytes 1+; Teardrop Cell 1+
[2020-12-01] MEDS: GABAPENTIN 300 MG CAP PO SCH (21:00)
[2020-12-01] MEDS: INSULIN GLARGINE 100 UNITS/ML SQ SCH (21:00)
[2020-12-01] MEDS: ATORVASTATIN 80 MG TAB PO SCH (21:00)
[2020-12-01] MEDS ORDERED: INSULIN -REGULAR HUMAN 50 UNIT/0.5 ML ML SQ SCH (21:00)
[2020-12-01] MEDS: ASPIRIN EC 81 MG TAB PO SCH (21:00)
[2020-12-01] MEDS: DOXAZOSIN 2 MG TAB PO SCH (21:00)
[2020-12-01] MEDS ORDERED: GABAPENTIN 300 MG CAP ONE (22:57)
[2020-12-01] MEDS ORDERED: ASPIRIN EC 81 MG TAB PO ONE (22:57)
[2020-12-01] MEDS ORDERED: INSULIN GLARGINE 100 UNITS/ML SQ ONE (22:57)
[2020-12-02 00:10] VITALS: BMI 18.0
[2020-12-02] MEDS: TRAZODONE 50 MG TABLET PO SCH ×2 (00:35→20:02)
[2020-12-02] MEDS: D5 0.45 NS 1,000 ML IV SCH ×2 (00:46→12:28)
[2020-12-02 05:53] LABS: Absolute Lymphocytes (CBC) 1.3 K/uL (0.7-4.9); Basophils % 1.2 % (0-1.3); Hematocrit 24.3 % (39.6-49.0); Lymphocytes % 26.2 % (15.3-44.8); MPV 10.2 fL (7.6-11.3); RBC Red Blood Cell Count 3.21 M/uL (4.33-5.43)
[2020-12-02] MEDS: INSULIN -REGULAR HUMAN 50 UNIT/0.5 ML ML SQ SCH ×4 (06:00→23:26)
[2020-12-02 06:28] LABS: Albumin 2.3 g/dL (3.4-5.0); Bilirubin Total 0.4 mg/dL (0.2-1.0); Potassium 3.9 mmol/L (3.5-5.1)
[2020-12-02 08:18] LABS: Anisocytosis 2+; Blood Morphology Comment NOTED (NOT SEEN); Platelet Estimate DECR; Poikilocytosis 1+; White Blood Cell Scan OK (OK)
[2020-12-02] MEDS: METOPROLOL XL 50 MG TAB PO SCH (09:00)
[2020-12-02] MEDS: CLOPIDOGREL 75 MG TABLET PO SCH (09:33)
[2020-12-02] MEDS: AMLODIPINE 5 MG TAB PO SCH (12:28)
[2020-12-02] MEDS: CALCITONIN NASAL SPRAY 200 IU/DOSE NAS SCH (12:29)
[2020-12-02] MEDS ORDERED: RISPERIDONE 0.25 MG TABLET PO ONE (12:42)
[2020-12-02 15:56] LABS: Protime INR 1.09
--- NOTE | 2020-12-02 17:18 | RAD REPORT ---
EXAM DESCRIPTION: CT - Soft Tissue Neck W/Contr - 12/02/2020 4:25 pm CLINICAL HISTORY: Epistaxis COMPARISON: Head C Spine Mpr Wo Con dated 10/22/2020 TECHNIQUE: During dynamic enhancement using 100 milliliters nonionic IV contrast, axial 5 millimeter thick images of the neck were obtained. All CT scans are performed using dose optimization technique as appropriate and may include automated exposure control or mA/KV adjustment according to patient size. FINDINGS: Intracranial portion the exam is unremarkable. No globe or orbital content abnormality see n. Right-side mastoid air cells are clear. There is complete opacification of the left ethmoid air ce lls. Middle ear is partially opacified but mostly aerated. Mucosal thickening and air-fluid level present in the right side sphenoid sinus with the dewards slight ly thickened consistent with a chronic sphenoid sinusitis. Minimal amount of debris is seen in the le ft side of the sphenoid sinus. Paranasal sinuses are otherwise clear. There is right deviation of the nasal septum. There is no mass or polyposis seen in the nasal passage. No abnormality of the termina enriqueta seen. There is a mild fullness without clearly defined mass in the posterior left nasopharynx near the tyler a of [place]. Prior study is not adequate for comparison due to the intubation. A clearly defined mass is not seen. However, given the mastoid air cell opacification on this side small mass lesion c annot be excluded and may need correlation with ENT examination. No other evidence for pharyngeal mucosal mass. No tonsillar or tongue base abnormality seen. Epiglott is does not appear grossly abnormal. No acute vocal cord finding seen. Exam has significant motion de gradation limitation. No acute vascular findings. There are advanced degenerative changes in the cervical spine with multil evel foraminal stenosis and borderline spinal stenosis at C4-5. IMPRESSION: Chronic right sphenoid sinusitis changes are present. No other finding seen that may con tribute to epistaxis history. Patient has asymmetric soft tissues in the left nasopharynx near the fossa of Rosenmller. The left-s ided mastoid air cells are fully opacified. An obstructing mass is possible and may need correlation with follow-up ENT direct visualization.
--- NOTE | 2020-12-02 17:39 | P.PN ---
Subjective Date of Service: 12/02/20 Chief Complaint: Diarrhea/ Anemia Patient noted to have epistaxis today. Not much diarrhea today. Speech seen patient and recommended mechanical soft diet and thin liquids. Physical Examination - Vital Signs Temperature: 97.2 F Blood Pressure: 126/60 Pulse: 56 Respirations: 16 Pulse Ox (%): 99 - Physical Exam General: In no apparent distress, Other (Awake) HEENT: Other (Epistaxis-left nostril.) Neck: Supple, JVD not distended Respiratory: Clear to auscultation bilaterally, Normal air movement Cardiovascular: No edema, Regular rate/rhythm, Normal S1 S2 Gastrointestinal: Normal bowel sounds, Soft and benign, Non-distended, Other (PEG tube) Musculoskeletal: No swelling, No tenderness Integumentary: No rashes Neurological: Other (No focal motor deficit) - Studies Laboratory Data (last 24 hrs) 12/01/20 16:09: WBC 7.40, Hgb 6.7 L*, Hct 20.3 L*, Plt Count 158 D Assessment And Plan - Current Problems (Diagnosis) (1) Chronic diarrhea Current Visit: Yes Status: Acute (2) S/P percutaneous endoscopic gastrostomy (PEG) tube placement Current Visit: Yes Status: Acute (3) Pneumonia Current Visit: Yes Status: Acute (4) Lesion of nasal cavity Current Visit: Yes Status: Acute (5) Acute blood loss anemia Current Visit: No Status: Acute (6) Generalized weakness Current Visit: No Status: Acute (7) History of GI bleed Current Visit: No Status: Acute (8) Diabetes Current Visit: No Status: Acute (9) Hypertension Onset Date: 11/05/16 Current Visit: No Status: Chronic Qualifiers: Hypertension type: essential hypertension Qualified Code(s): I10 - Essential (primary) hypertension - Plan Status post 1 unit PRBC transfusion. Posttransfusion hemoglobin is up to 8. Monitor H&H and transfuse p.r.n. CT soft tissue neck reporting asymmetric lesion in the left nasal cavity and opacification of the mastoid air cells. He will need ENT evaluation for direct visualization and biopsy. Will consult ENT to see him on Saturday. Continue antibiotics. Consult dietitian to evaluate and change feeding formula if that will help with his chronic diarrhea. Insulin sliding scale for glucose management. Continue antihypertensives. Monitor CBC and renal function.
[2020-12-02] MEDS: DOXAZOSIN 2 MG TAB PO SCH (20:02)
[2020-12-02] MEDS: ATORVASTATIN 80 MG TAB PO SCH (20:03)
[2020-12-02] MEDS: GABAPENTIN 300 MG CAP PO SCH (20:03)
[2020-12-02] MEDS: ASPIRIN EC 81 MG TAB PO SCH (20:09)
[2020-12-02] MEDS: INSULIN GLARGINE 100 UNITS/ML SQ SCH ×2 (20:45→23:25)
[2020-12-03] MEDS: D5 0.45 NS 1,000 ML IV SCH (00:23)
[2020-12-03] MEDS: Levofloxacin 750mg IV 750 MG/150 ML BAG IV SCH (04:28)
[2020-12-03] MEDS: NA CHLORIDE 0.9% 1,000 ML IV SCH ×2 (04:28→17:07)
[2020-12-03 06:24] LABS: Absolute Lymphocytes (CBC) 1.3 K/uL (0.7-4.9); Hematocrit 22.9 % (39.6-49.0); Lymphocytes % 21.5 % (15.3-44.8); MPV 10.2 fL (7.6-11.3); RBC Red Blood Cell Count 3.03 M/uL (4.33-5.43)
[2020-12-03 06:47] LABS: Potassium 4.2 mmol/L (3.5-5.1)
[2020-12-03] MEDS ORDERED: VANCOMYCIN/NS 1 gm 1 GM/250 ML BAG IVPB SCH (07:30)
[2020-12-03] MEDS: INSULIN -REGULAR HUMAN 50 UNIT/0.5 ML ML SQ SCH ×4 (07:30→20:50)
[2020-12-03] MEDS ORDERED: VANCOMYCIN/NS 1 gm 1 GM/250 ML BAG IVPB ONE (07:35)
[2020-12-03 08:46] LABS: Anisocytosis 2+; Blood Morphology Comment NOTED (NOT SEEN); Platelet Estimate DECR; White Blood Cell Scan OK (OK)
[2020-12-03] MEDS: METOPROLOL XL 50 MG TAB PO SCH (09:00)
[2020-12-03] MEDS: CLOPIDOGREL 75 MG TABLET PO SCH (10:18)
[2020-12-03] MEDS: AMLODIPINE 5 MG TAB PO SCH (13:00)
[2020-12-03] MEDS: CALCITONIN NASAL SPRAY 200 IU/DOSE NAS SCH (13:00)
--- NOTE | 2020-12-03 13:16 | P.PN ---
Subjective Date of Service: 12/03/20 Chief Complaint: Diarrhea/ Anemia Epistaxis resolved. Spouse report patient was quite sweaty last night. No diarrhea since admission. Speech seen patient and recommended mechanical soft diet and thin liquids. Physical Examination - Vital Signs Temperature: 97.8 F Blood Pressure: 119/59 Pulse: 67 Respirations: 20 Pulse Ox (%): 97 - Physical Exam General: Alert, In no apparent distress HEENT: Mucous membr. moist/pink Neck: JVD not distended Respiratory: Clear to auscultation bilaterally, Normal air movement Cardiovascular: No edema, Regular rate/rhythm, Normal S1 S2 Gastrointestinal: Soft and benign, Non-distended, No tenderness Musculoskeletal: No swelling Integumentary: No rashes Neurological: Other (No focal motor deficit) - Studies Microbiology Data (last 24 hrs): 12/01/20 17:07 Clean Catch Urine Rice Count - Final <10,000 CFU/ML. 12/01/20 17:07 Clean Catch Urine - Final Enterobacter Cloacae Gram Neg Keenan Assessment And Plan - Current Problems (Diagnosis) (1) Chronic diarrhea Current Visit: Yes Status: Acute (2) S/P percutaneous endoscopic gastrostomy (PEG) tube placement Current Visit: Yes Status: Acute (3) Pneumonia Current Visit: Yes Status: Acute (4) Lesion of nasal cavity Current Visit: Yes Status: Acute (5) Acute blood loss anemia Current Visit: No Status: Acute (6) Generalized weakness Current Visit: No Status: Acute (7) History of GI bleed Current Visit: No Status: Acute (8) Diabetes Current Visit: No Status: Acute (9) Hypertension Onset Date: 11/05/16 Current Visit: No Status: Chronic Qualifiers: Hypertension type: essential hypertension Qualified Code(s): I10 - Essential (primary) hypertension - Plan Status post 1 unit PRBC transfusion. Hemoglobin dropped today. Monitor H&H and transfuse p.r.n. for hemoglobin less than 7. CT soft tissue neck reporting asymmetric lesion in the left nasal cavity and opacification of the mastoid air cells. He will need ENT evaluation for direct visualization and biopsy. Will consult ENT to see him on Saturday. 1 blood culture bottle growing Gram positive cocci. Continue Levaquin. Add vancomycin. Dietitian to evaluate and change feeding formula if that will help with his chronic diarrhea. Insulin sliding scale for glucose management. Continue antihypertensives. Monitor CBC and renal function.
[2020-12-03] MEDS: TAMSULOSIN 0.4 MG SR CAP PO SCH (17:00)
[2020-12-03] MEDS: ASPIRIN EC 81 MG TAB PO SCH (20:36)
[2020-12-03] MEDS: ACETAMINOPHEN 500 MG TAB PO PRN (20:48)
[2020-12-03] MEDS: TRAZODONE 50 MG TABLET PO SCH (20:49)
[2020-12-03] MEDS: ATORVASTATIN 80 MG TAB PO SCH (20:49)
[2020-12-03] MEDS: INSULIN GLARGINE 100 UNITS/ML SQ SCH (20:49)
[2020-12-03] MEDS: GABAPENTIN 300 MG CAP PO SCH (20:49)
[2020-12-03] MEDS: DOXAZOSIN 2 MG TAB PO SCH (21:00)
[2020-12-04] MEDS: Levofloxacin 750mg IV 750 MG/150 ML BAG IV SCH (05:29)
[2020-12-04] MEDS: INSULIN -REGULAR HUMAN 50 UNIT/0.5 ML ML SQ SCH ×5 (07:30→21:00)
[2020-12-04] MEDS: CLOPIDOGREL 75 MG TABLET PO SCH (08:42)
[2020-12-04] MEDS: FUROSEMIDE 40 MG TABLET PO SCH ×2 (08:43→21:18)
[2020-12-04] MEDS: METOPROLOL XL 50 MG TAB PO SCH (08:44)
[2020-12-04] MEDS: TAMSULOSIN 0.4 MG SR CAP PO SCH (09:00)
[2020-12-04] MEDS: NA CHLORIDE 0.9% 1,000 ML IV SCH ×2 (11:01→19:47)
[2020-12-04] MEDS: AMLODIPINE 5 MG TAB PO SCH (12:36)
[2020-12-04] MEDS: CALCITONIN NASAL SPRAY 200 IU/DOSE NAS SCH (12:38)
--- NOTE | 2020-12-04 12:42 | P.PN ---
Date of Service: 12/04/20 ENT Consultation-- Please see dictated H&P Impression: 1. Epistaxis-- Left nasal cavity-- resolved and flex scope negative for nasoph aryngeal mass. 2. Septal dislocation/fracture-- Old 3. Left chronic mastoiditis 4. Bilateral hearing loss Plan: 1. Start nasal saline BID. 2. Epistaxis protocol given via video recording to patient and his . 3. Outpatient comprehensive audiogram. 4. Consider outpatient elective septoplasty. Thanks you for allowing me to participate in the care of this most interesting patient.
[2020-12-04] MEDS: SUCRALFATE 1GM/10ML UCUP PO SCH ×3 (13:00→21:18)
--- NOTE | 2020-12-04 13:18 | P.PN ---
Subjective Date of Service: 12/04/20 Chief Complaint: Diarrhea/ Anemia Epistaxis resolved. Patient developed acute urinary retention last time was straight catheterized. Spouse report no urine output since the straight catheterization. He is not getting his tamsulosin because patient has not been able to eat or swallow well. No diarrhea since admission. She is feeding him 1-2 times per day. Speech seen patient and recommended mechanical soft diet and thin liquids. Patient seen by ENT. Physical Examination - Vital Signs Temperature: 98.3 F Blood Pressure: 116/54 Pulse: 54 Respirations: 18 Pulse Ox (%): 96 - Physical Exam General: Alert, In no apparent distress, Oriented x3 HEENT: Mucous membr. moist/pink Neck: JVD not distended Respiratory: Clear to auscultation bilaterally, Normal air movement Cardiovascular: No edema, Regular rate/rhythm, Normal S1 S2 Gastrointestinal: Normal bowel sounds, Soft and benign, Non-distended, No tenderness Musculoskeletal: No swelling, No tenderness Integumentary: No rashes, No erythema Neurological: Normal strength at 5/5 x4 extr, Cranial nerves 3-12 intact - Studies Microbiology Data (last 24 hrs): 12/01/20 17:07 Clean Catch Urine Pratt Count - Final <10,000 CFU/ML. 12/01/20 17:07 Clean Catch Urine - Final Enterobacter Cloacae Gram Neg Keenan Assessment And Plan - Current Problems (Diagnosis) (1) Chronic diarrhea Current Visit: Yes Status: Acute (2) S/P percutaneous endoscopic gastrostomy (PEG) tube placement Current Visit: Yes Status: Acute (3) Pneumonia Current Visit: Yes Status: Acute (4) Lesion of nasal cavity Current Visit: Yes Status: Acute (5) Acute blood loss anemia Current Visit: No Status: Acute (6) Generalized weakness Current Visit: No Status: Acute (7) History of GI bleed Current Visit: No Status: Acute (8) Diabetes Current Visit: No Status: Acute (9) Hypertension Onset Date: 11/05/16 Current Visit: No Status: Chronic Qualifiers: Hypertension type: essential hypertension Qualified Code(s): I10 - Essential (primary) hypertension - Plan Status post 1 unit PRBC transfusion. Monitor H&H and transfuse p.r.n. for hemoglobin less than 7. CT soft tissue neck reporting asymmetric lesion in the left nasal cavity and opacification of the mastoid air cells. Patient seen the ENT. No nasal cavity mass identified after examination. 1 blood culture bottle growing coagulase negative Staph. This is likely a skin contaminant. Repeat blood culture. Continue antibiotics Dietitian to evaluate and change feeding formula if that will help with his chronic diarrhea. Insulin sliding scale for glucose management. Continue antihypertensives. Monitor CBC and renal function. Intermittent bladder scan. Would recommend Holcomb catheter insertion the patient noted to have urinary retention. He is on Cardura but not able to take the tamsulosin because he is not able to swallow well and is not to be given via the PEG tube. Resume tamsulosin as soon as patient is able to feed orally Continue PEG tube feeding.
[2020-12-04] MEDS: FERROUS SULFATE 325 MG TAB PO SCH ×2 (14:33→21:18)
[2020-12-04] MEDS: DOXAZOSIN 2 MG TAB PO SCH (21:00)
[2020-12-04] MEDS: ATORVASTATIN 80 MG TAB PO SCH (21:17)
[2020-12-04] MEDS: GABAPENTIN 300 MG CAP PO SCH (21:17)
[2020-12-04] MEDS: INSULIN GLARGINE 100 UNITS/ML SQ SCH (21:18)
[2020-12-04] MEDS: TRAZODONE 150 MG TAB PO SCH (21:18)
[2020-12-04] MEDS: ASPIRIN EC 81 MG TAB PO SCH (21:18)
[2020-12-05 03:55] LABS: Absolute Lymphocytes (CBC) 1.2 K/uL (0.7-4.9); Basophils % 0.7 % (0-1.3); MPV 10.3 fL (7.6-11.3); RBC Red Blood Cell Count 2.75 M/uL (4.33-5.43)
[2020-12-05 04:19] LABS: Potassium 5.1 mmol/L (3.5-5.1)
[2020-12-05 04:22] LABS: Hematocrit 20.8 % (39.6-49.0)
[2020-12-05] MEDS: Levofloxacin 750mg IV 750 MG/150 ML BAG IV SCH (05:18)
[2020-12-05] MEDS: INSULIN -REGULAR HUMAN 50 UNIT/0.5 ML ML SQ SCH ×4 (07:30→21:41)
[2020-12-05] MEDS: NA CHLORIDE 0.9% 1,000 ML IV SCH (07:35)
[2020-12-05] MEDS: TAMSULOSIN 0.4 MG SR CAP PO SCH (09:00)
[2020-12-05] MEDS: D50W 25 GM/50 ML SYRINGE IV PRN (09:00)
[2020-12-05] MEDS: FUROSEMIDE 40 MG TABLET PO SCH ×3 (09:00→20:16)
[2020-12-05] MEDS: CLOPIDOGREL 75 MG TABLET PO SCH ×2 (09:00→12:22)
[2020-12-05] MEDS: FERROUS SULFATE 325 MG TAB PO SCH ×3 (09:00→20:16)
[2020-12-05] MEDS: ESCITALOPRAM 20 MG TAB PO SCH ×2 (09:00→12:22)
[2020-12-05] MEDS: SUCRALFATE 1GM/10ML UCUP PO SCH ×4 (09:00→20:14)
[2020-12-05] MEDS: AMLODIPINE 5 MG TAB PO SCH (12:22)
--- NOTE | 2020-12-05 12:26 | RAD REPORT ---
EXAM DESCRIPTION: RAD - Barium Swallow Modified - 12/05/2020 11:52 am CLINICAL HISTORY: Dysphagia COMPARISON: None. TECHNIQUE: The patient was given liquid, semi-solid and solid forms of barium. Lateral view fluorosc opic imaging was performed in conjunction with speech pathology service. FINDINGS: Cineloop acquisitions: 45 Fluoro time: 6 minutes 46 seconds Laryngeal penetration: Cleared with thin liquid (taken with tablet) and nectar Pharyngeal residue: Minimum with thin, nectar. Mild with honey, puree, kenisha cracker. Cervical osteophytes (C5-C7) decreasing pharyngeal space, Delayed swallow onset (1-3 sec). Barium tablet taken with cup sip of thin, got held up in [id number] esophagus, moderate retention, dysmotility and retropulsion. cleared to lower esophagus with bite of pudding. IMPRESSION: Modified barium swallow as summarized above and fully detailed on speech pathology repor donald
[2020-12-05] MEDS: CALCITONIN NASAL SPRAY 200 IU/DOSE NAS SCH (12:32)
--- NOTE | 2020-12-05 14:18 | P.PN ---
Subjective Date of Service: 12/05/20 Chief Complaint: Diarrhea/ Anemia EPatient developed acute urinary retention and was straight catheterized 2 days ago. He is now voiding freely. Patient blood sugar dropped a bit last night He is not getting his tamsulosin because patient has not been able to eat or swallow well. No diarrhea since admission. She is feeding him 1-2 times per day. MBS down today. Mechanical soft and nectar thickened liquids recommended Hemoglobin dropped to 6.9 today. Physical Examination - Vital Signs Temperature: 97.8 F Blood Pressure: 141/75 Pulse: 54 Respirations: 18 Pulse Ox (%): 98 - Physical Exam General: Alert, In no apparent distress, Oriented x3 HEENT: Mucous membr. moist/pink Neck: JVD not distended Respiratory: Clear to auscultation bilaterally, Normal air movement Cardiovascular: No edema, Regular rate/rhythm, Normal S1 S2 Gastrointestinal: Normal bowel sounds, Soft and benign, Non-distended, No tenderness Musculoskeletal: No swelling Integumentary: No rashes Neurological: Normal strength at 5/5 x4 extr Assessment And Plan - Current Problems (Diagnosis) (1) Chronic diarrhea Current Visit: Yes Status: Acute (2) S/P percutaneous endoscopic gastrostomy (PEG) tube placement Current Visit: Yes Status: Acute (3) Pneumonia Current Visit: Yes Status: Acute (4) Lesion of nasal cavity Current Visit: Yes Status: Acute (5) Acute blood loss anemia Current Visit: No Status: Acute (6) Generalized weakness Current Visit: No Status: Acute (7) History of GI bleed Current Visit: No Status: Acute (8) Diabetes Current Visit: No Status: Acute (9) Hypertension Onset Date: 11/05/16 Current Visit: No Status: Chronic Qualifiers: Hypertension type: essential hypertension Qualified Code(s): I10 - Essential (primary) hypertension (10) Acute urinary retention Current Visit: Yes Status: Acute (11) Acute renal failure Current Visit: Yes Status: Acute - Plan Status post 1 unit PRBC transfusion. Transfuse 1 more units for hemoglobin 6.9. Monitor H&H and transfuse p.r.n. for hemoglobin less than 7. CT soft tissue neck reporting asymmetric lesion in the left nasal cavity and opacification of the mastoid air cells. Patient seen the ENT. No nasal cavity mass identified on direct examination. 1 blood culture bottle growing coagulase negative Staph. This is likely a skin contaminant. Repeat blood culture: No growth. Continue antibiotics for pneumonia and UTI. Both urine culture and sputum culture growing Enterobacter. Dietitian to evaluate and change feeding formula if that will help with his chronic diarrhea. Insulin sliding scale for glucose management. Continue antihypertensives. Monitor CBC and renal function. Patient now voiding freely. Intermittent bladder scan. He is on Cardura but not able to take the tamsulosin because he is not able to swallow well and is not to be given via the PEG tube. Resume tamsulosin as soon as patient is able to feed orally Continue PEG tube feeding. Consulting nephrology to evaluate acute renal failure.
[2020-12-05] MEDS: ACETAMINOPHEN 500 MG TAB PO PRN ×2 (14:56→20:21)
--- NOTE | 2020-12-05 16:53 | CON ---
Chief Complaint: Epistaxis. History Of Present Illness: The patient is a pleasant 65-year-old male, who experienced acute onset of left nasal cavity bleeding approximately 2 days ago. The patient states that it started without any inciting events, and he stated that it was a large amount of blood and blood clots mixed with mucus. The bleeding stopped after placing Kleenex inside the nose and holding pressure. He has not had any subsequent bleeding from this area. 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 Currently, he denies nasal pain or bleeding and only reports mild rhinorrhea and postnasal drip. He also has a history of chronic bilateral hearing loss, but denies otalgia, otorrhea, mastoid tenderness, headache, sore throat. No other ENT complaints today. Past Medical History: Pertinent for diabetes, high cholesterol, hypertension, CAD, COPD. Past Surgical History: Knee surgery, I and D of lower right buttock, hiatal hernia repair, I and D of the left foot, left bipolar hemiarthroplasty, hip surgery, CABG, and hand surgery. Social History: The patient reports that he was a regular daily smoker as well as moderate use of alcohol, but states that he stopped alcohol use approximately 7 years ago and smoking cessation was approximately 1 year ago; denies drug use. Medications: Aspirin, atorvastatin, doxazosin, ferrous sulphate, furosemide, metformin ER, metoprolol succinate, lidocaine 4% patch, ondansetron, tramadol, acetaminophen, amlodipine, calcitonin, calcitriol, clopidogrel bisulfate, escitalopram, gabapentin, insulin glargine, Human Lantus, trazodone, amoxicillin/potassium clavulanate, cranberry concentrate. Allergies: SPIRONOLACTONE Review of Systems: Ears: Positive for chronic bilateral hearing loss, and negative for tinnitus, otalgia, otorrhea, mastoid tenderness. Nose: Positive for recent left nasal cavity epistaxis and mild rhinorrhea; negative for pain; positive for right nasal congestion. Throat: Negative for sore throat and positive for mild postnasal drip. Physical Examination: External Ears: Normal size and morphology without trauma or congenital deformity. External auditory canals patent. Tympanic membranes intact with no evidence of middle ear effusion, tympanitis, atelectasis, or bulging; mild amount of cerumen in the lateral canals. Hearing: Unable to hear soft vocal tones. External Nose: Normal external nose without significant deformity. Right nasal cavity: Significant stenosis secondary to right nasal septal deviation without turbinate hypertrophy, masses, or synechia. Left nasal cavity: Better patency secondary to the right septal deviation without turbinate hypertrophy, masses, or synechia. Oral Cavity: Normal lip morphology and anatomy; edentulous with no evidence of mucosal, gingival, soft or hard palate lesions. Oropharynx: Uvula is midline with no evidence of oropharyngeal lesions, masses, or obstruction; mucosa is moist. Laryngeal Mirror Exam: Did not reveal any evidence of oral or oropharyngeal mucosal lesions. Unable to assess the laryngeal complex or hypopharynx secondary to prominent gag reflex. Flexible nasopharyngolaryngoscopy indicated. Flexible nasopharyngolaryngoscope: After the patient gave consent, the scope was placed into the right nasal cavity and it was unable to be advanced secondary to the significant septal deviation, which I would approximate is at least 90% occluding the caudal nasal cavity. The scope was withdrawn and placed into the left nasal cavity and advanced along the floor back to the level of the nasopharynx. All areas of the left nasal cavity were visualized, and there was no evidence of masses, lesions, or dysplasia. Both eustachian tube orifices were visualized and the fossa of Rosenmller was visualized and found to be without masses or obstructions. During a sniffing maneuver, I then advanced the scope to the hypopharynx and larynx, and the patient vocalized adequately with no evidence of vocal cord lesions. True vocal cords were white and glistening with no evidence of vascular ectasia or evidence of acid reflux. During swallow, the patient had adequate epiglottic inversion and laryngeal elevation, although was delayed. As the scope was withdrawn, all areas were visualized again and I did not detect any mucosal lesions whatsoever. The scope was then completely withdrawn through the left nasal cavity. The patient tolerated the procedure well. CT scan of the soft tissue neck with contrast on 12/02/20 was reviewed carefully. Indeed there is evidence of opacification of the left mastoid air cells and it appears there is fluid in the left ethmoid air cells and possible mucus noted in the posterior left nasopharynx as opposed to a mass. Significant subluxation of the caudal left nasal septum, which is deviated to the right and is dislocated off the maxillary crest and vomer, best seen in coronal images. There is some fluid noted also in the right sphenoid sinus. Diagnoses: 1. Epistaxis -- left nasal cavity -- currently resolved. 2. Septal fracture/dislocation -- old. 3. Left chronic mastoiditis-- asymptomatic. 4. Bilateral hearing loss -- chronic. 5. Effusion noted in the left ethmoid sinuses and right sphenoid sinuses --asymptomatic. Recommendations: 1. Recommend nasal saline ---2 sprays each nostril twice daily. 2. Recommend outpatient audiogram to assess hearing. 3. Can address left mastoid cavity effusion in the outpatient setting. 4. Epistaxis protocol given to the patient and his who is in the room for the history and physical exam -- this was done as a video recording. 5. Recommend outpatient elective septoplasty -- high suspicion that this is the origin of recent epistaxis and may need repair to prevent future bleeding episodes. This was discussed in detail with the patient and his . 6. Recommend outpatient followup in 2 to 4 weeks post discharge. Thank you for this most interesting patient Dr. Montez. NABEEL/ERLIN Voice ID: [id number] Report ID: [id number] JONO
[2020-12-05] MEDS: GLUCERNA 1.5 CAL 1,000 ML BOT FT SCH ×2 (17:00→20:23)
[2020-12-05] MEDS: TRAZODONE 150 MG TAB PO SCH (20:14)
[2020-12-05] MEDS: DOXAZOSIN 2 MG TAB PO SCH (20:15)
[2020-12-05] MEDS: ASPIRIN EC 81 MG TAB PO SCH (20:15)
[2020-12-05] MEDS: ATORVASTATIN 80 MG TAB PO SCH (20:15)
[2020-12-05] MEDS: GABAPENTIN 300 MG CAP PO SCH (20:16)
[2020-12-05] MEDS ORDERED: DIPHENHYDRAMINE 50 MG/ML VIAL IV ONE (20:36)
[2020-12-05] MEDS: INSULIN GLARGINE 100 UNITS/ML SQ SCH (21:40)
[2020-12-06] MEDS: NA CHLORIDE 0.9% 1,000 ML IV SCH (05:57)
[2020-12-06] MEDS: Levofloxacin 750mg IV 750 MG/150 ML BAG IV SCH (05:57)
[2020-12-06] MEDS: D50W 25 GM/50 ML SYRINGE IV PRN (06:05)
[2020-12-06 06:09] LABS: Absolute Lymphocytes (CBC) 1.2 K/uL (0.7-4.9); Basophils % 0.7 % (0-1.3); Hematocrit 24.4 % (39.6-49.0); Lymphocytes % 19.9 % (15.3-44.8); RBC Red Blood Cell Count 3.17 M/uL (4.33-5.43)
[2020-12-06 06:11] LABS: Bilirubin Total 0.3 mg/dL (0.2-1.0); Potassium 4.4 mmol/L (3.5-5.1); Protein, Total 5.4 g/dL (6.4-8.2)
[2020-12-06 06:54] LABS: White Blood Cell Scan OK (OK)
[2020-12-06 06:55] LABS: Anisocytosis 1+; Blood Morphology Comment NOTED (NOT SEEN)
[2020-12-06 06:56] LABS: Basophilic Stippling 1+
[2020-12-06 06:58] LABS: Platelet Estimate DECR
[2020-12-06] MEDS: INSULIN -REGULAR HUMAN 50 UNIT/0.5 ML ML SQ SCH ×4 (07:30→20:26)
[2020-12-06] MEDS: TAMSULOSIN 0.4 MG SR CAP PO SCH (08:56)
[2020-12-06] MEDS: FERROUS SULFATE 325 MG TAB PO SCH ×2 (08:57→12:34)
[2020-12-06] MEDS: CLOPIDOGREL 75 MG TABLET PO SCH (08:57)
[2020-12-06] MEDS: FUROSEMIDE 40 MG TABLET PO SCH ×2 (08:57→20:16)
[2020-12-06] MEDS: ESCITALOPRAM 20 MG TAB PO SCH (08:57)
[2020-12-06] MEDS: GLUCERNA 1.5 CAL 1,000 ML BOT FT SCH ×4 (08:58→20:25)
[2020-12-06] MEDS: SUCRALFATE 1GM/10ML UCUP PO SCH ×4 (09:10→20:19)
[2020-12-06] MEDS ORDERED: EPOETIN ALFA-EPBX 10,000 UNIT/ML VIAL SQ ONE (11:00)
[2020-12-06] MEDS: AMLODIPINE 5 MG TAB PO SCH (12:14)
--- NOTE | 2020-12-06 12:16 | P.CNS ---
Date of Consult: 12/06/20 Chief Complaint: Diarrhea/ Anemia History of Present Illness: The patient is a 65-year-old male with a past medical history of diabetes mellitus type 2, hypertension, hyperlipidemia, CAD, COPD who presented to the emergency department with low blood pressure, weakness, and dehydration. Patient was recently admitted to this facility with a urinary tract infection and also developed aspiration pneumonia, and patient had to be intubated and was transferred to [facility] and underwent a PEG placement and was then discharge. Patient has a severe chronic anemia he has undergone in the EGD and colonoscopy. During this admission patient has received several units of packed red blood ce lls. Urine cultures performed on 12/01 grew Enterobacter cloacea, blood cultures showed no growth, sputum cultures taken on 12/03 grew Enterobacter cloacea, plants abdominal culture of the fluid around PEG tube insertion site also grew Enterobacter cloacea. Patient initially started on Levaquin, however due to irregular heart rhythm noted and patient has been switched to IV Rocephin. Patient denies nausea, vomiting, diarrhea, shortness breath, chest pain. 10 point ROS has been performed with pertinent positives and negatives listed above. Allergies spironolactone Adverse Reaction (Verified 12/02/20 00:07) Anaphylaxis "nexia d" Allergy (Mild, Uncoded 12/02/20 00:07) Unknown Home Medications: Aspirin [Adult Aspirin Regimen] 81 mg PO BEDTIME 06/04/20 Atorvastatin Calcium [Lipitor] 80 mg PO BEDTIME 06/04/20 Furosemide [Lasix*] 40 mg PO BID 06/04/20 Metformin ER [Glucophage ER*] 500 mg PO BID 06/04/20 Metoprolol Succinate 50 mg PO BID 06/04/20 Amlodipine [Norvasc*] 5 mg PO DAILY 07/16/20 Clopidogrel Bisulfate [Plavix*] 75 mg PO DAILY 07/16/20 Escitalopram [Lexapro*] 20 mg PO DAILY 07/16/20 Gabapentin 300 mg PO BID 07/16/20 Insulin Glargine Human [Lantus*] 15 units SQ BEDTIME 07/16/20 Trazodone [Desyrel*] 150 mg PO BEDTIME 07/16/20 Acetaminophen [Tylenol Extra Strength] 500 mg PO Q4HP PRN 12/02/20 Acetaminophen [Tylenol Extra Strength] 500 mg PO Q4HP PRN 12/02/20 Ferrous Sulfate [Ferrous Sulfate*] 325 mg PO TID 12/02/20 Insulin Lispro 5 unit SQ TIDWM 12/02/20 Nut.tx.gluc Intol,Lf,Soy/Fiber [Glucerna 1.2 Higinio Liquid] 474 ml PO QID 12/02/20 Ondansetron [Zofran (Odt)*] 4 mg SL Q6H PRN 12/02/20 Sucralfate [Carafate] 1 mg PO QID 12/02/20 - Past Medical/Surgical History Diabetic: Yes -: Diabetes mellitus type 2, insulin-dependent -: CAD -: Hypertension -: Hyperlipidemia -: COPD -: Tobacco abuse -: Fracture t12 L3 -: Lung disease -: GI disease -: seizures -: Stroke -: Knee surgery -: I&D lower right buttock -: hiatal hernia repair -: I and D to the left foot -: Left Bipolar Hemiarthroplasty 04/06/19 -: Hip surgery -: CABG -: hand sx Psychosocial/ Personal History: Patient is single. He lives with his son. - Family History Father Medical History: Heart disease, Hypertension, Lung disease, GI disease, Diabetes, Cancer, Other (see notes) Notes: parkinson's disease Mother Medical History: Heart disease, Hypertension, Diabetes, Cancer Sister Medical History: Cancer - Social History Smoking Status: Unknown if ever smoked Alcohol use: No CD- Drugs: No Caffeine use: Yes Place of Residence: Home Review of Systems 10-point ROS is otherwise unremarkable Physical Examination Temp Pulse Resp BP Pulse Ox 97.3 F 65 17 140/69 100 12/06/20 08:00 12/06/20 08:57 12/06/20 08:00 12/06/20 08:57 12/06/20 08:00 General: Alert, In no apparent distress, Oriented x3 HEENT: Atraumatic, Normocephalic Neck: Supple, 2+ carotid pulse no bruit Respiratory: Clear to auscultation bilaterally, Normal air movement Cardiovascular: Irregular heart rate/rhythm Capillary refill: <2 Seconds Gastrointestinal: Normal bowel sounds, Other (PEG tube insertion site) Integumentary: No rashes, No breakdown, No significant lesion Urinary: Holcomb catheter Temp Pulse Resp BP Pulse Ox 97.3 F 65 17 140/69 100 12/06/20 08:00 12/06/20 08:57 12/06/20 08:00 12/06/20 08:57 12/06/20 08:00 Microbiology 12/01/20 17:07 Clean Catch Urine [place] Count - Final <10,000 CFU/ML. 12/01/20 17:07 Clean Catch Urine - Final Enterobacter Cloacae Gram Neg Ke[place] Conclusions/Impression: Antibiotics: current: Ceftriaxone Start:12/06 stop: 12/10 DC: Levaquin start: 12/03 stop: 12/06 Assessment: -urinary tract infection -left lung base pneumonia -skin/soft tissue infection around PEG tube insertion site -irregular heart rhythm -diabetes mellitus type 2 -anemia Plan -all cultures have grown Enterobacter cloacea. Laboratory results showing sensitivity to 3rd generation cephalosporins, Rocephin has been started. Patient will need a total antibiotic course of 7 days. Patient also started on probiotic, recommended the patient take probiotic over the counter upon discharge. Patient can be placed on oral cefixime 300 mg q24 hr upon discharge. Renally dosed: Patient has estimated creatinine clearance of 46.1 mL/min. Patient initially started on Levaquin however a irregular heart rhythm discovered and patient was taken off Levaquin. * urine culture taken on 12/01 * sputum culture taken on 12/03 * abdominal culture from fluid around PEG tube site taken on 12/04 -PEG tube insertion site looks clean dry and intact with no clinical signs infection. Continue covering with butterfly gauze. -medical management per primary team -continue monitor CBC and BMP -continue monitor signs infection Planning care discussed with Thank you for consultation.
[2020-12-06] MEDS: CEFTRIAXONE/SWI 1gm 1 GM/10 ML SYR IV SCH (12:34)
[2020-12-06] MEDS: CALCITONIN NASAL SPRAY 200 IU/DOSE NAS SCH (12:35)
--- NOTE | 2020-12-06 13:42 | CON ---
History Of Present Illness: The patient is seen in room 218. His is by the bedside. The patie nt is alert, awake, able to communicate, and give answers. Has some oxygen going. History of conges tive heart failure. He also has a PEG tube in. He also has recently had a Holcomb catheter, which has been now removed. Has a diaper on and says that he has been having some incontinence. He recently passed a swallowing test and is able to take some p.o. intake now. Has a history of aspiration. The patient is 65 years old with multiple medical issues. Has had a creatinine of about 1.2 to 1.3 rang e. His creatinine last in July of this year was about 1.2. The patient has been following with Helio Yadav outpatient for his kidney status. Also, he has been having fluctuating glucose levels and has been on a long-acting insulin of 8 units daily and covering with a short-acting insulin before m eals. is very involved with his care and has been taking care of him and trying to keep him mov ing in bed and then avoiding ulcers on the back. The patient has had ulcers in the past. He has had aspiration requiring him a long ICU stay and evaluation in the hospital for several days. The states he was admitted in [place]. He has also had some bleeding, which is unexplained. He has pérez d an EGD. He has had a colonoscopy by Dr. Modi and they were planning on doing a pill endoscopy. For that, he needs to follow up in clinic, but has not been able to do that: #1, he is unable to get out of bed and follow up; #2, he is not able to swallow the pill comfortably. Just recently, he pas sed a swallowing evaluation and now has been started back on the Flomax. Before, he was not able to take Flomax and developed urinary retention and also seems to now have urinary tract infection with E nterococcus. The patient also is high risk for these infections given his incontinence and general d ebility and inability to get out of bed, which can make the area contaminated with stool and also wit h urine. His current status from the kidney point of view seems reasonably stable. His creatinine l ast on laboratory was about 1.38, which is reasonably close to his baseline. He is not having any me tabolic acidosis. His sodium is lower side, but reasonable at 133. His major issue today is that hi s glucose has been running slightly lower as he is not taking p.o. intake and with a slight worsening of his kidney function. His insulin excretion probably is decreased and therefore he is getting mor e efficacy from the insulin. His albumin is at 2.0. Despite that, he does not have much swelling wi th trace edema in the lower extremities, a little bit more on the upper arm area, but still given his albumin of 2, that seems to be mild. Past Medical History: As explained above. The patient has history of congestive heart failure, hist ory of aspiration, has a PEG tube, history of GI bleeding, has had EGD and colonoscopy. The patient with inability to get out of bed much given his severe general debility and weakness and also given h is history of fractures in the back. The patient has a very dedicated who takes care of him. Social History: No evidence of IVDA. No smoking. No alcohol abuse. Family History: Noncontributory. Medications: In the chart reviewed. The patient is currently not on any antibiotics that I can see. He is getting amlodipine for his blood pressure. He is on furosemide. He is getting sucralfate. He is currently actually on Levaquin, which has just recently been started on December 03 and then he has gotten a dose documented also at December 06. Laboratory Data: Reviewed. The patient's labs showed sodium 133, potassium 4.4, chloride 100, bicar b is 27, BUN is 52, creatinine is 1.38. Estimated GFR on this is 52. Glucose last was about 40 rang e. Early in the morning, that has improved now to about 98. Albumin level was 2.0. His WBC has bee n okay at 6, hemoglobin 8.3, hematocrit 24.4, and platelet count of 111. Assessment And Plan: 1.The patient is a 65-year-old male with multiple comorbidities, history of chronic kidney disease l jamesely stage 3 in the setting of congestive heart failure in the setting of diabetes mellitus in the s etting of high blood pressure. He also has a history of obstructive uropathy requiring Holcomb cathete r in the past, has seen Dr. Best. Also to get a straight cath done recently partially because he was unable to take Flomax due to his swallowing issues, but he is back on the Flomax. He is able to pee a little bit better. He is still having incontinence and because of his difficulty getting out o f bed, he is requiring a diaper. This is also putting him at high risk for urinary tract infection. The patient does seem to have urinary tract infection currently. He is on Levaquin. Infectious Dis ease has been consulted. I spoke with the nurse practitioner in some detail about the patient's cond ition. Antibiotics may need to be adjusted based on information on the cultures and perhaps p.o. ant ibiotics can be initiated once the patient is ready to be discharged. 2.GI bleeding. The patient has unexplained GI bleeding at this point. Colonoscopy and EGD have bee n done. He has not had a pill endoscopy done, but was planned; however, the patient is having diffic ulty taking pills and also unable to go to the outpatient doctor's office to meet with Dr. Modi for this. If the patient's condition improves, this is something that he will try; however, we will get a CBC tomorrow morning to make sure that the bleeding is not ongoing and the hemoglobin is not dropp ing. If that is the case and he needs for the transfusions, may need to see if Dr. Modi can engage in the hospital or to see if anything needs to be done more acutely. 3.Acute kidney injury. His acute kidney injury at this point is reasonably mild, perhaps in about s tage 1. He has chronic kidney disease stage 3 at this point. Part of that reason for the creatinine elevation could be due to his urinary tract infection and also some obstruction going on. Now that Flomax has started, I expect this to improve. 4.Electrolyte abnormalities, metabolic acidosis. At this point, this is not a significant issue. S odium level 133 could be explained by mild congestion. His volume status seems to be reasonably stab le at this point. We will continue with encouragement of p.o. intake with aspiration precautions. Stevie mendieta is able to take p.o. intake now, now that he has passed his swallowing study. 5.Obstructive uropathy. Dr. Best has seen the patient in the past. The patient required straigh t catheterization recently to relieve obstruction. He is urinating a little bit better now and still using a diaper. However, if this condition reoccurs or obstruction becomes a problem again, may nee d to reassess with a possibility of needing straight cath versus Holcomb catheter insertion. Dr. Clark anderson could be consulted if he is available for hospital evaluation to see if anything further needs to be advised for the patient acutely. I do expect his condition from the obstructive point of view to improve once he is regularly back on Flomax. 6.Hypertension, reasonably stable at this point. Volume status close to euvolemic. His edema on th e upper extremities and lower extremity could be explained by albumin of 2. In the setting of his co ngestive heart failure in the past and aspiration risk, we would be careful giving him any IV fluids unless the patient's p.o. intake declines again. Appreciate your consultation. Do not hesitate to call me for any further clarification or discussion. Cell phone number is [phone]. /ERLIN Voice ID: [id number] Report ID: [id number]
--- NOTE | 2020-12-06 15:43 | P.PN ---
Subjective Date of Service: 12/06/20 Chief Complaint: Diarrhea/ Anemia Subjective: Improving (swallowing better, tolerating food, hypoglycemic this morning, had urinary retention the past 2 days, reports failed straight cath yesterday and had burning urethra pain following attempt. reports h/o urinary retention and has seen Dr. Best, requesting consult) Review of Systems 10-point ROS is otherwise unremarkable Physical Examination - Vital Signs Temperature: 98.0 F Blood Pressure: 131/60 Pulse: 66 Respirations: 17 Pulse Ox (%): 99 Assessment & Plan Physician Review Additional Text: Physical Exam General: Alert, In no apparent distress, Oriented x3 HEENT: Mucous membr. moist/pink Neck: JVD not distended Respiratory: Clear to auscultation bilaterally, Normal air movement Cardiovascular: No edema, Regular rate/rhythm, Normal S1 S2 Gastrointestinal: Normal bowel sounds, Soft and benign, Non-distended, No tenderness Musculoskeletal: No swelling Integumentary: No rashes Neurological: Normal strength at 5/5 x4 extr Assessment And Plan Community-acquired pneumonia Epistaxis Acute blood-loss anemia Generalized weakness. History of GI bleed Chronic diarrhea S/P percutaneous endoscopic gastrostomy (PEG) tube placement Diabetes mellitus type 2, insulin dependent Hypertension Acute urinary retention Acute renal failure s/p 2u PRBC total this hospitalization. maintain hgb> 7.0 no nasal mass idenified by ENT - noted on CT neck CONS in 1 blood culture - likely contaminant, no growth on repeat continue antibiotics - for enterobacter in urine/sputum SSI, accucheks ACHS continue HtN medications continue with intermittent bladder scan resumed tamsulosin, now taking PO continue PEG tube feeds nephrology consulted for OSCAR ID consulted for enterobacter, pt with multiple sites - sputum & urine - recommended 7 days of Abx reports h/o urinary retention - seen Dr. Bets before; mentions circumcision has been brought up before to possibly help Time Spent Managing Pts Care (In Minutes): 35
[2020-12-06] MEDS: NYSTATIN PWDR 100000 UNIT/GM TOP SCH (20:14)
[2020-12-06] MEDS: ATORVASTATIN 80 MG TAB PO SCH (20:15)
[2020-12-06] MEDS: DOXAZOSIN 2 MG TAB PO SCH (20:15)
[2020-12-06] MEDS: TRAZODONE 150 MG TAB PO SCH (20:16)
[2020-12-06] MEDS: LACTOBACILLUS/ACIDOPHILUS TAB PO SCH (20:16)
[2020-12-06] MEDS: ASPIRIN EC 81 MG TAB PO SCH (20:16)
[2020-12-06] MEDS: GABAPENTIN 300 MG CAP PO SCH (20:17)
[2020-12-07] MEDS: NA CHLORIDE 0.9% 1,000 ML IV SCH (02:49)
[2020-12-07 04:02] LABS: Absolute Lymphocytes (CBC) 1.1 K/uL (0.7-4.9); Basophils % 0.9 % (0-1.3); Hematocrit 25.6 % (39.6-49.0); Lymphocytes % 19.6 % (15.3-44.8); MPV 9.9 fL (7.6-11.3); RBC Red Blood Cell Count 3.33 M/uL (4.33-5.43)
[2020-12-07] MEDS: INSULIN -REGULAR HUMAN 50 UNIT/0.5 ML ML SQ SCH ×4 (07:30→20:31)
[2020-12-07] MEDS: SUCRALFATE 1GM/10ML UCUP PO SCH ×4 (07:58→20:16)
[2020-12-07] MEDS: CEFTRIAXONE/SWI 1gm 1 GM/10 ML SYR IV SCH (08:18)
[2020-12-07] MEDS: FUROSEMIDE 40 MG TABLET PO SCH ×2 (08:19→20:21)
[2020-12-07] MEDS: CLOPIDOGREL 75 MG TABLET PO SCH (08:19)
[2020-12-07] MEDS: TAMSULOSIN 0.4 MG SR CAP PO SCH (08:19)
[2020-12-07] MEDS: GABAPENTIN 300 MG CAP PO SCH ×2 (08:19→20:21)
[2020-12-07] MEDS: ESCITALOPRAM 20 MG TAB PO SCH (08:19)
[2020-12-07] MEDS: LACTOBACILLUS/ACIDOPHILUS TAB PO SCH ×2 (08:19→20:21)
[2020-12-07] MEDS: NYSTATIN PWDR 100000 UNIT/GM TOP SCH ×2 (08:20→21:00)
[2020-12-07] MEDS: GLUCERNA 1.5 CAL 1,000 ML BOT FT SCH ×4 (08:20→20:32)
--- NOTE | 2020-12-07 10:19 | P.PN ---
Subjective Date of Service: 12/07/20 Chief Complaint: Diarrhea/ Anemia Patient seen examined at bedside, no acute events are past 24 hr. Remains afebrile, hemodynamically stable. No leukocytosis noted. Hemoglobin stable. Physical Examination - Vital Signs Temperature: 97.5 F Blood Pressure: 142/63 Pulse: 64 Respirations: 16 Pulse Ox (%): 100 Assessment And Plan - Plan General: Alert, In no apparent distress, Oriented x3 HEENT: Atraumatic, Normocephalic Neck: Supple, 2+ carotid pulse no bruit Respiratory: Clear to auscultation bilaterally, Normal air movement Cardiovascular: Irregular heart rate/rhythm Capillary refill: <2 Seconds Gastrointestinal: Normal bowel sounds, Other (PEG tube insertion site) Integumentary: No rashes, No breakdown, No significant lesion Urinary: Holcomb catheter Conclusions/Impression: Antibiotics: current: Ceftriaxone Start:12/06 stop: 12/10 DC: Levaquin start: 12/03 stop: 12/06 Assessment: -urinary tract infection -left lung base pneumonia -skin/soft tissue infection around PEG tube insertion site -irregular heart rhythm -diabetes mellitus type 2 -anemia Plan -all cultures have grown Enterobacter cloacea. Laboratory results showing sensitivity to 3rd generation cephalosporins, Rocephin has been started. Patient will need a total antibiotic course of 7 days. Patient also started on probiotic, recommended the patient take probiotic over the counter upon discharge. Patient can be placed on oral cefixime 300 mg q24 hr upon discharge. Renally dosed: Patient has estimated creatinine clearance of 46.1 mL/min. Patient initially started on Levaquin however a irregular heart rhythm discovered and patient was taken off Levaquin. * urine culture taken on 12/01 * sputum culture taken on 12/03 * abdominal culture from fluid around PEG tube site taken on 12/04 -PEG tube insertion site looks clean dry and intact with no clinical signs infection. Continue covering with butterfly gauze. -medical management per primary team -continue monitor CBC and BMP -continue monitor signs infection Planning care discussed with Thank you for consultation. Physician Review Additional Text: Physical Exam General: Alert, In no apparent distress, Oriented x3 HEENT: Mucous membr. moist/pink Neck: JVD not distended Respiratory: Clear to auscultation bilaterally, Normal air movement Cardiovascular: No edema, Regular rate/rhythm, Normal S1 S2 Gastrointestinal: Normal bowel sounds, Soft and benign, Non-distended, No tenderness Musculoskeletal: No swelling Integumentary: No rashes Neurological: Normal strength at 5/5 x4 extr Assessment And Plan Community-acquired pneumonia Epistaxis Acute blood-loss anemia Generalized weakness. History of GI bleed Chronic diarrhea S/P percutaneous endoscopic gastrostomy (PEG) tube placement Diabetes mellitus type 2, insulin dependent Hypertension Acute urinary retention Acute renal failure s/p 2u PRBC total this hospitalization. maintain hgb> 7.0 no nasal mass idenified by ENT - noted on CT neck CONS in 1 blood culture - likely contaminant, no growth on repeat continue antibiotics - for enterobacter in urine/sputum SSI, accucheks ACHS continue HtN medications continue with intermittent bladder scan resumed tamsulosin, now taking PO continue PEG tube feeds nephrology consulted for OSCAR ID consulted for enterobacter, pt with multiple sites - sputum & urine - recommended 7 days of Abx reports h/o urinary retention - seen Dr. Best before; mentions circumcision has been brought up before to possibly help
--- NOTE | 2020-12-07 12:01 | EKG ---
Test Date: 2020-12-06 Test Time: 11:48:31 Assistant Counsel: ROQUE MEASUREMENT RESULTS: Intervals: Rate: 61 DC: QRSD: 140 QT: 478 QTc: 481 Fowler: P: DC: QRS: -61 T: 167 INTERPRETIVE STATEMENTS: Atrial fibrillation with a competing junctional pacemaker Left axis deviation Nonspecific intraventricular block Cannot rule out Septal infarct, age undetermined Possible Inferior infarct, age undetermined T wave abnormality, consider lateral ischemia or digitalis effect Abnormal ECG Compared to ECG 12/01/2020 14:51:55 Myocardial infarct finding now present T-wave abnormality now present Possible ischemia now present Left bundle-branch block no longer present Electronically Signed On 12-07-20 11:57:20 CDT by Martin Reyes
[2020-12-07] MEDS: CALCITONIN NASAL SPRAY 200 IU/DOSE NAS SCH (12:03)
[2020-12-07] MEDS: AMLODIPINE 5 MG TAB PO SCH (12:03)
[2020-12-07] MEDS ORDERED: D50W 25 GM/50 ML VIAL IV PRN (14:00)
--- NOTE | 2020-12-07 14:37 | P.PN ---
Subjective Date of Service: 12/07/20 Chief Complaint: Diarrhea/ Anemia Subjective: No new changes (doing ok per patient and at bedside, no new complaints, voiding better, gets full after eating PO and unable to tolerate glucerna via PEG, denies choking/aspiration. no SOB) Review of Systems 10-point ROS is otherwise unremarkable Physical Examination - Vital Signs Temperature: 98.5 F Blood Pressure: 142/63 Pulse: 64 Respirations: 16 Pulse Ox (%): 98 Assessment & Plan Physician Review Additional Text: Physical Exam General: Alert, In no apparent distress, Oriented x3 HEENT: Mucous membr. moist/pink Neck: JVD not distended Respiratory: Clear to auscultation bilaterally, Normal air movement Cardiovascular: No edema, Regular rate/rhythm, Normal S1 S2 Gastrointestinal: Soft and benign, Non-distended, No tenderness, PEG tube site without drainage, no surrounding erythema Integumentary: mild erythema in groin/erythema Assessment And Plan Community-acquired pneumonia Epistaxis Acute blood-loss anemia Generalized weakness. History of GI bleed Chronic diarrhea S/P percutaneous endoscopic gastrostomy (PEG) tube placement Diabetes mellitus type 2, insulin dependent Hypertension Acute urinary retention Acute renal failure s/p 2u PRBC total this hospitalization. maintain hgb> 7.0 no nasal mass idenified by ENT - noted on CT neck CONS in 1 blood culture - likely contaminant, no growth on repeat continue antibiotics - for enterobacter in urine/sputum - ID consulted, recommended 7 days total SSI, accucheks ACHS continue HTN medications continue with intermittent bladder scan to ensure bladder emptying resumed tamsulosin, now taking PO continue PEG tube feeds nephrology consulted for OSCAR - appears to be near baseline reports h/o urinary retention - seen Dr. Best before; mentions circumcision has been brought up before to possibly help Dispo: anticipate dc home tomorrow if remains stable. home with home health Time Spent Managing Pts Care (In Minutes): 35
[2020-12-07] MEDS: TRAZODONE 150 MG TAB PO SCH (20:20)
[2020-12-07] MEDS: ASPIRIN EC 81 MG TAB PO SCH (20:20)
[2020-12-07] MEDS: ATORVASTATIN 80 MG TAB PO SCH (20:21)
[2020-12-07] MEDS: DOXAZOSIN 2 MG TAB PO SCH (20:21)
[2020-12-07] MEDS: ACETAMINOPHEN 500 MG TAB PO PRN (20:29)
--- NOTE | 2020-12-07 22:20 | P.PN ---
Date of Service: 12/07/20 Vital Signs Temp Pulse Resp BP Pulse Ox 99 F 91 H 18 129/61 98 12/07/20 20:29 12/07/20 20:21 12/07/20 20:00 12/07/20 20:21 12/07/20 20:00 Medications Acetaminophen (Acetaminophen 500 Mg Tab) 500 mg PO Q6H PRN PRN Reason: TEMP > 100' F Last Admin: 12/07/20 20:29 Dose: 500 mg Documented by: Acetaminophen (Acetaminophen 500 Mg Tab) 500 mg PO Q4H PRN PRN Reason: Pain scale 2-4 (Mild) Last Admin: 12/04/20 11:00 Dose: 500 mg Documented by: Amlodipine Besylate (Amlodipine 5 Mg Tab) 5 mg PO 1200 [facility] Last Admin: 12/07/20 12:03 Dose: 5 mg Documented by: Aspirin (Aspirin Ec 81 Mg Tab) 81 mg PO BEDTIME [facility] Last Admin: 12/07/20 20:20 Dose: 81 mg Documented by: Atorvastatin Calcium (Atorvastatin 80 Mg Tab) 80 mg PO BEDTIME [facility] Last Admin: 12/07/20 20:21 Dose: 80 mg Documented by: Calcitonin [place] (Calcitonin Nasal [place] 200 Iu/Dose) 1 sprays GEMA 1200 [facility] Last Admin: 12/07/20 12:03 Dose: 1 sprays Documented by: Clopidogrel Bisulfate (Clopidogrel 75 Mg Tablet) 75 mg PO DAILY [facility] Last Admin: 12/07/20 08:19 Dose: 75 mg Documented by: Dextrose (D50w 25 Gm/50 Ml Vial) 12.5 gm IV PRN PRN; Protocol PRN Reason: HYPOGLYCEMIA Doxazosin Mesylate (Doxazosin 2 Mg Tab) 2 mg PO BEDTIME [facility] Last Admin: 12/07/20 20:21 Dose: 2 mg Documented by: Enteral Nutritional Formula (Glucerna 1.5 Higinio 1,000 Ml Bot) 0 ml FT QID [facility] Last Admin: 12/07/20 20:32 Dose: 360 ml Documented by: Escitalopram Oxalate (Escitalopram 20 Mg Tab) 20 mg PO DAILY [facility] Last Admin: 12/07/20 08:19 Dose: 20 mg Documented by: Ferrous Sulfate (Ferrous Sulfate 220 Mg/5 Ml Elixir) 325 mg PO TID [facility] Last Admin: 12/07/20 20:18 Dose: 325 mg Documented by: Furosemide (Furosemide 40 Mg Tablet) 40 mg PO BID [facility] Last Admin: 12/07/20 20:21 Dose: 40 mg Documented by: Gabapentin (Gabapentin 300 Mg Cap) 300 mg PO BID [facility] Last Admin: 12/07/20 20:21 Dose: 300 mg Documented by: Glucagon (Glucagon 1 Mg/Vial) 1 mg IM 1X PRN; Protocol PRN Reason: HYPOGLYCEMIA Ceftriaxone Sodium/Sodium Chloride (Rocephin 1 Gm/10 Ml Swi Ivp) 1 gm in 10 mls @ 600 mls/hr IV DAILY [facility]; Protocol Last Admin: 12/07/20 08:18 Dose: 10 mls Documented by: Insulin Human Regular (Insulin -Regular Human 50 Unit/0.5 Ml Ml) 0 unit SQ ACHS [facility]; Protocol Last Admin: 12/07/20 20:31 Dose: 2 unit Documented by: Lactobacillus Acidoph/Bulgaricus (Lactobacillus/Acidophilus Tab) 1 tab PO BID [facility] Last Admin: 12/07/20 20:21 Dose: 1 tab Documented by: Nystatin (Nystatin Pwdr [id number] Unit/Gm) 1 appl TOP BID [facility] Last Admin: 12/07/20 21:00 Dose: 1 appl Documented by: Ondansetron HCl (Ondansetron 4 Mg/2 Ml Vial) 4 mg IV Q8H PRN PRN Reason: NAUSEA / VOMITING Last Admin: 12/04/20 19:43 Dose: 4 mg Documented by: Sodium Chloride (Flush Normal Saline 10 Ml) 10 ml IV BID [facility] Last Admin: 12/07/20 20:31 Dose: 10 ml Documented by: Sucralfate (Sucralfate 1gm/10ml Ucup) 1 gm PO QID [facility] Last Admin: 12/07/20 20:16 Dose: 1 gm Documented by: Tamsulosin HCl (Tamsulosin 0.4 Mg Sr Cap) 0.4 mg PO DAILY [facility] Last Admin: 12/07/20 08:19 Dose: 0.4 mg Documented by: Trazodone HCl (Trazodone 150 Mg Tab) 150 mg PO BEDTIME [facility] Last Admin: 12/07/20 20:20 Dose: 150 mg Documented by: Microbiology Results 12/01/20 17:07 Clean Catch Urine [place] Count - Final <10,000 CFU/ML. 12/01/20 17:07 Clean Catch Urine - Final Enterobacter Cloacae Gram Neg [place] Assessment/ Plan: Nephrology Feeling better. Fatigue. No acute events overnight. Vitals, medications, blood work and imaging reviewed in the chart. NAD. Thin. Sarcopenia. CTA. RRR. Diminished bases/ Poor effort. Hip Edema 1-2+ Somnolent. CKD III with proteinuria -No NSAIDs Hyponatremia -Continue Lasix Hypocalcemia -Start Calcitriol HTN with CKD -Continue amlodipine DM II with CKD -RISS Moderate malnutrition -Maintain nutrition Anemia in chronic illness -Transfuse PRBC as needed -Give Retacrit BPH with LUTS -Continue Doxazosin Acute cystitis with enterobacter cloacae -Continue Rocephin Case reviewed with Dr. Carrera
--- NOTE | 2020-12-07 23:31 | CON ---
Date of Consultation 12/07/20 Reason For Consultation: Urinary retention. History Of Present Illness: Mr. Anderson is a patient well known to me via my outpatient practice with past medical history of diabetes, hypertension, hyperlipidemia, CAD, COPD, and spinal injury who has been evaluated in the past for issues with incomplete emptying of his bladder. He was previously taking Flomax and was near complete emptying and voiding well and so further evaluation was deferred. In the interim, he suffered an aspiration pneumonitis event in the mid part of October that resulted in his emergency department visit, intubation and transferred to [facility]. He was admitted there for several weeks before being discharged with a PEG tube due to swallowing difficulties. Subsequently, he was home for just over a week when he had another episode of night sweats associated with fever and malaise, which resulted in his presentation to the emergency department again on last . Since that time, urine culture and sputum cultures have revealed Enterobacter cloacae resistant to Macrobid, Augmentin, Keflex and intermittent sensitivity to Unasyn. The cultures were otherwise sensitive in the urine. In the sputum, the sensitivity patterns were the same as was the sensitivity within the PEG tube. As a result, he has been admitted since last and has been undergoing medical management and is currently on ceftriaxone IV antimicrobial therapy. He has been voiding frequently with moderate volumes around 200-250 cc and has been given Lasix, which has increase the volume of urine that he has produced to nearly 2 L in about 20 hours today. However, despite this, I was concerned that he was incompletely emptying his bladder and so I performed the following evaluation. Physical Examination: General: On examination, the patient is alert and communicative, lying in bed, in no acute distress. He has no dyspnea or signs of respiratory distress. Extremities: He has some peripheral edema in his upper and lower extremities. Genitourinary: His genitals are mildly edematous within the foreskin and scrotum, but the foreskin was easily retractable. The meatus was patent without issue and there was no discharge from the penis. Bladder scan PVR was performed and revealed over 365 cc retained about 1 hour postvoid. Efforts to get the patient to void were without success, so I recommended a Holcomb catheter be placed to speed his recovery and eliminate any infection from within his urine by decompressing his bladder. Holcomb catheter insertion procedure note: His genitals were prepped using Betadine and draped in standard fashion. A lidocaine Uro-Jet was applied for local anesthesia. I then passed an 18-[place] coude-tipped catheter into his bladder with ease and placed 10 cc of sterile water in the balloon. There was prompt drainage of clear yellow urine and his bladder did decompress of over 500 cc. Assessment And Recommendations: Mr. Anderson is a 65-year-old gentleman with multiple medical comorbidities and spinal injury along with just chronic medical debilitation at this point with significant volume incomplete bladder emptying associated with an Enterobacter infection involving multiple sources from his urine to his lungs and PEG tube. I recommend leaving the Holcomb catheter in place until the patient can follow up with me as an outpatient in the Urology Clinic for subsequent evaluation. He more than likely will require urodynamic evaluation at this point, and if I have not already performed a cystoscopic evaluation, this will also be recommended. Consideration to imaging to assess the reason behind his Enterobacter involving multiple sources is answered by a CT of the abdomen and pelvis that was performed on 12/01/2020, in a limited fashion as it was done without contrast. It revealed a suspected pneumonia in the left lung base. No acute finding of the PEG tube site. No abscess or collection seen. Fluid retention in the subcutaneous fatty tissues and in the peritoneal cavity. Symmetric renal function with no hydronephrosis or suspicious renal mass was noted. No evidence of pyelonephritis or acute parenchymal process. The bladder showed no acute abnormality. This was a CT with IV contrast. Continue Flomax if the patient is able. Of note, I spent over 30 minutes [id number] time in this consultation, which includes a portion of the time spent placing the urethral Holcomb catheter as above. WR/MODL Voice ID: [id number] Report ID: [id number] JONO
[2020-12-08 04:58] LABS: Absolute Lymphocytes (CBC) 1.3 K/uL (0.7-4.9); Basophils % 0.9 % (0-1.3); Hematocrit 24.3 % (39.6-49.0); Lymphocytes % 20.7 % (15.3-44.8); MPV 10.1 fL (7.6-11.3); RBC Red Blood Cell Count 3.16 M/uL (4.33-5.43)
[2020-12-08 05:15] LABS: Albumin 2.2 g/dL (3.4-5.0); Bilirubin Total 0.3 mg/dL (0.2-1.0); Potassium 3.9 mmol/L (3.5-5.1); Protein, Total 5.7 g/dL (6.4-8.2)
[2020-12-08] MEDS: INSULIN -REGULAR HUMAN 50 UNIT/0.5 ML ML SQ SCH ×3 (07:30→16:30)
[2020-12-08] MEDS: GLUCERNA 1.5 CAL 1,000 ML BOT FT SCH ×3 (09:00→16:50)
[2020-12-08] MEDS: SUCRALFATE 1GM/10ML UCUP PO SCH ×3 (09:29→16:50)
[2020-12-08] MEDS: NYSTATIN PWDR 100000 UNIT/GM TOP SCH (09:29)
[2020-12-08] MEDS: CALCITONIN NASAL SPRAY 200 IU/DOSE NAS SCH ×2 (09:29→11:48)
[2020-12-08] MEDS: LACTOBACILLUS/ACIDOPHILUS TAB PO SCH (09:30)
[2020-12-08] MEDS: ESCITALOPRAM 20 MG TAB PO SCH (09:30)
[2020-12-08] MEDS: FUROSEMIDE 40 MG TABLET PO SCH (09:30)
[2020-12-08] MEDS: GABAPENTIN 300 MG CAP PO SCH (09:30)
[2020-12-08] MEDS: CLOPIDOGREL 75 MG TABLET PO SCH (09:31)
[2020-12-08] MEDS: CEFTRIAXONE/SWI 1gm 1 GM/10 ML SYR IV SCH (09:32)
[2020-12-08] MEDS: AMLODIPINE 5 MG TAB PO SCH (11:27)
--- NOTE | 2020-12-08 11:44 | P.PN ---
Subjective Date of Service: 12/08/20 Chief Complaint: Diarrhea/ Anemia Patient seen examined at bedside, per 's patient had episode of hypotension last night. Patient also has significant amount of residual urine, hernandez catheter has been placed. Review of Systems 10-point ROS is otherwise unremarkable Physical Examination - Vital Signs Temperature: 98.5 F Blood Pressure: 126/60 Pulse: 75 Respirations: 16 Pulse Ox (%): 96 - Studies Temp Pulse Resp BP Pulse Ox 98.5 F 75 16 126/60 96 12/08/20 08:00 12/08/20 11:27 12/08/20 08:00 12/08/20 08:00 12/08/20 08:00 Laboratory Last Values WBC 7.40 K/uL (4.3-10.9) 12/01/20 16:09 RBC 2.70 M/uL (4.33-5.43) L 12/01/20 16:09 Hgb 6.7 g/dL (13.6-17.9) L* 12/01/20 16:09 Hct 20.3 % (39.6-49.0) L* 12/01/20 16:09 MCV 75.1 fL (80-100) L 12/01/20 16:09 MCH 24.7 pg (27.0-35.0) L 12/01/20 16:09 MCHC 32.9 g/dL (32.0-36.0) 12/01/20 16:09 RDW 22.4 % (12.1-15.2) H 12/01/20 16:09 Plt Count 158 K/uL (152-406) D 12/01/20 16:09 MPV 10.1 fL (7.6-11.3) 12/01/20 16:09 Neutrophils % 70.0 % (41.7-73.7) 12/01/20 16:09 Lymphocytes % 18.3 % (15.3-44.8) 12/01/20 16:09 Monocytes % 8.4 % (3.3-12.3) 12/01/20 16:09 Eosinophils % 2.5 % (0-4.4) 12/01/20 16:09 Basophils % 0.8 % (0-1.3) 12/01/20 16:09 Absolute Neutrophils 5.2 K/uL (1.8-8.0) 12/01/20 16:09 Absolute Lymphocytes 1.3 K/uL (0.7-4.9) 12/01/20 16:09 Absolute Monocytes 0.6 K/uL (0.1-1.3) 12/01/20 16:09 Absolute Eosinophils 0.2 K/uL (0-0.5) 12/01/20 16:09 Absolute Basophils 0.1 K/uL (0-0.5) 12/01/20 16:09 Platelet Estimate Adeq 12/01/20 16:09 Poikilocytosis 2+ 12/01/20 16:09 Anisocytosis 2+ 12/01/20 16:09 Tear Drop Cells 1+ 12/01/20 16:09 Ovalocytes 1+ 12/01/20 16:09 Morphology Comment Noted (NOT SEEN) 12/01/20 16:09 Sodium 127 mmol/L (136-145) L 12/01/20 16:09 Potassium 4.7 mmol/L (3.5-5.1) 12/01/20 16:09 Chloride 89 mmol/L (98-107) L 12/01/20 16:09 Carbon Dioxide 30 mmol/L (21-32) 12/01/20 16:09 BUN 56 mg/dL (7-18) H 12/01/20 16:09 Creatinine 0.94 mg/dL (0.55-1.3) 12/01/20 16:09 Estimated GFR 81 mL/min (=/>90) L 12/01/20 16:09 Glucose 73 mg/dL (74-106) L 12/01/20 16:09 POC Glucose 75 mg/dL (65-120) 12/01/20 15:45 Lactic Acid 1.0 mmol/L (0.4-2.0) 12/01/20 16:09 Calcium 8.5 mg/dL (8.5-10.1) 12/01/20 16:09 Total Bilirubin 0.7 mg/dL (0.2-1.0) 12/01/20 16:09 Direct Bilirubin 0.1 mg/dL (0-0.2) 12/01/20 16:09 AST 29 U/L (15-37) 12/01/20 16:09 ALT 40 U/L (12-78) 12/01/20 16:09 Alkaline Phosphatase 95 U/L (45-117) 12/01/20 16:09 Rapid Troponin I 0.02 ng/mL (0.0-0.045) 12/01/20 16:09 Serum Total Protein 6.4 g/dL (6.4-8.2) 12/01/20 16:09 Albumin 2.4 g/dL (3.4-5.0) L 12/01/20 16:09 Globulin 4.0 g/dL (2.3-3.5) H 12/01/20 16:09 Albumin/Globulin Ratio 0.6 (1.1-1.8) L 12/01/20 16:09 Lipase 361 U/L (73-393) 12/01/20 16:09 Urine pH 7.0 (5.0-7.0) 12/01/20 17:06 Ur Specific [place] 1.015 (1.005-1.030) 12/01/20 17:06 Glucose (UA)(Auto) Negative (Negative) 12/01/20 17:06 Urine Ketones Negative (Negative) 12/01/20 17:06 Urine Blood Negative (Negative) 12/01/20 17:06 Urine Nitrite Negative (Negative) 12/01/20 17:06 Ur Leukocyte Esterase Negative (Negative) 12/01/20 17:06 Urine RBC <5 /HPF (NONE SEEN) 12/01/20 17:07 Urine WBC <5 /HPF (<5) 12/01/20 17:07 Ur Squamous Epith Cells <5 /HPF (NONE SEEN) 12/01/20 17:07 Urine Bacteria None seen /HPF (NONE SEEN) 12/01/20 17:07 Urine Mucus 1+ /HPF (NONE SEEN) 12/01/20 17:07 Urine Culture Reflexed Not needed 12/01/20 17:07 Urine Total Protein 2+ (Negative) H 12/01/20 17:06 Smear Scan Ok (OK) 12/01/20 16:09 Assessment And Plan - Plan General: Alert, In no apparent distress, Oriented x3 HEENT: Atraumatic, Normocephalic Neck: Supple, 2+ carotid pulse no bruit Respiratory: Clear to auscultation bilaterally, Normal air movement Cardiovascular: Irregular heart rate/rhythm Capillary refill: <2 Seconds Gastrointestinal: Normal bowel sounds, Other (PEG tube insertion site) Integumentary: No rashes, No breakdown, No significant lesion Urinary: Hernandez catheter Conclusions/Impression: Antibiotics: current: Ceftriaxone Start:12/06 stop: 12/10 DC: Levaquin start: 12/03 stop: 12/06 Assessment: -urinary tract infection -left lung base pneumonia -skin/soft tissue infection around PEG tube insertion site -irregular heart rhythm -diabetes mellitus type 2 -anemia Plan -all cultures have grown Enterobacter cloacea. Laboratory results showing sensitivity to 3rd generation cephalosporins, Rocephin has been started. Patient will need a total antibiotic course of 7 days. Patient also started on probiotic, recommended the patient take probiotic over the counter upon discharge. Patient can be placed on oral cefixime 300 mg q24 hr upon discharge. Renally dosed: Patient has estimated creatinine clearance of 46.1 mL/min. Patient initially started on Levaquin however a irregular heart rhythm discovered and patient was taken off Levaquin. * urine culture taken on 12/01 * sputum culture taken on 12/03 * abdominal culture from fluid around PEG tube site taken on 12/04 -PEG tube insertion site looks clean dry and intact with no clinical signs infection. Continue covering with butterfly gauze. -medical management per primary team -continue monitor CBC and BMP -continue monitor signs infection Planning care discussed with Thank you for consultation.
[2020-12-08 12:13] VITALS: O2SAT 96
--- NOTE | 2020-12-08 16:17 | P.DS ---
Admission Date: 12/01/20 Discharge Date: 12/08/20 Disposition: DC HOME/HOME HEALTH CARE Discharge Condition: GOOD Reason for Admission: Diarrhea/ Anemia, Pneumonia, UTI Consultations: ENT - Dr. Cobb Nephrology - Dr. Yadav, Dr. Pereira Infectious Disease - Dr. Ortega Urology - Dr. Demetrio Best Procedures: CT Abd/pelvis (12/01): : Suspected consolidated pneumonia in the left lung base only partially imaged on this study. No acute findings at the PEG tube site. Soft tissues between the stomach and the skin are similar to the November 23 study. No abscess or air collections seen. No gallbladder, biliary tree or pancreatic acute finding. Gallstones and duct stones can be occult. Fluid retention in the subcutaneous fatty tissues with trace amount of free fluid in the peritoneal cavity. Failure or volume overload are possible. CXR (12/01): Chronic interstitial lung disease is present. Focal opacification is present retrocardiac left base near the elevated left hemidiaphragm. This is the correlate to the CT finding and is suspicious for pneumonia. No consolidation of the right lung field. There is a skin fold artifact coursing along the lateral aspect of the chest from base to apex. A pneumothorax is not suspected. Heart size is upper normal. Vasculature is mildly prominent. Sternotomy wires are in place. No measurable pleural effusion. No acute bony abnormality seen. No acute aortic findings suspected. IMPRESSION: Left lung base pneumonia. CT Neck (12/02): Chronic right sphenoid sinusitis changes are present. No other finding seen that may contribute to epistaxis history. Patient has asymmetric soft tissues in the left nasopharynx near the fossa of Rosenmller. The left-sided mastoid air cells are fully opacified. An obstructing mass is possible and may need correlation with follow-up ENT direct visualization. MBS (12/05): Laryngeal penetration: Cleared with thin liquid (taken with tablet) and nectar Pharyngeal residue: Minimum with thin, nectar. Mild with honey, puree, kenisha cracker. Cervical osteophytes (C5-C7) decreasing pharyngeal space, Delayed swallow onset (1-3 sec). Barium tablet taken with cup sip of thin, got held up in [id number] esophagus, moderate retention, dysmotility and retropulsion. cleared to lower esophagus with bite of pudding. Problem list Community-acquired pneumonia Epistaxis Bradycardia Acute blood-loss anemia Generalized weakness. History of GI bleed Chronic diarrhea S/P percutaneous endoscopic gastrostomy (PEG) tube placement Diabetes mellitus type 2, insulin dependent Hypertension Acute urinary retention Acute renal failure Brief History of Present Illness: 65yo M, PMH: DM2, HTN, HLD, CAD s/p CABG, COPD, dysphagia, presents to ED with hypotension, bradycardia, generalized weakness, and dehydration. Patient presented ~1-2 months ago to ER with UTI and aspiration pneumonia, required intubation and transferred to [facility] where he underwent PEG placement. He has a history of chronic anemia for which he underwent an EGD and colonoscopy which were within normal limits as per the family. The patient is supposed to get a small bowel Pilicam by Dr Modi. He currently Denies any pain . No fever or chills. No chest pain or shortness of breath. The patient has been getting tube feeding with Glucerna and is complaining of diarrhea for the last 2 days. no melena noted. The patient was assessed in the ER and was found to have anemia and dehydration and was admitted for further management. Hospital Course: Workup revealed patient had pneumonia and urinary tract infection. He was treated with IV antibiotics. He was also noted to have slight purulent drainage from PEG tube site. A culture was obtained and grew Enterobacter - same bacteria that grew in sputum and urine. He had gradual improvement. ID was consulted and recommended a total of 7 days of antibiotic course. His blood cultures remained negative. Recommend repeat UA/ culture at end of antibiotic course. Patient developed Epistaxis, a CT was performed and revealed asymmetric lesion in the left nasal cavity. ENT was consulted, patient underwent flex scope which was negative for nasopharyngeal mass. Epistaxis resolved. Anemia - worsened with epistaxis. No other signs of bleeding. hemoccult negative. Received a total of 2 units PRBCs. Hgb remained stable and didn't require further transfusions on the last 3 days of hospitalization. H/o anemia - iron deficiency, chronic disease, and undergoing evaluation for possible occult GI bleed as outpatient. Diarrhea - resolved on admission. Credit Administration Specialist was consulted. Tube feeds changes from Glucerna 1.2 to 1.5 to decrease total volume. Urinary retention - pt was noted to have urinary retention and failed voiding trial. Urology was consulted, hernandez was re-inserted. He is to follow up as outpatient for further evaluation. Dysphagia - patient recently had PEG placement ~4-6 weeks ago. He was following with speech therapy as outpatient and was allowed ice chips only. He underwent modified barium swallow eval here. ST recommended tiral of pureed foods. Agree that these are more of a pleasure feeding at this time and should be minimized given his risk of aspiration. This was discussed with patient and , however, seemed more interested in giving him as much PO as possible, despite the risk. Bradycardia - metoprolol was held on admission and HR remained in 60s. This was discontinued on discharge, but patient and advised to follow up with PCP. As he fully recovers, he will likely need to be restarted on a lower dose. Hypotension - secondary to dehydration and infection. Improved but did have 2 episodes of BP to 110/60s with mild symptoms. Vital Signs/Physical Exam: Physical Exam General: Alert, In no apparent distress, Oriented x3 HEENT: Mucous membr. moist/pink Neck: JVD not distended Respiratory: Clear to auscultation bilaterally, Normal air movement Cardiovascular: Regular rate/rhythm, Normal S1 S2, b/l upper posterior thigh / hip edema Gastrointestinal: Soft and benign, Non-distended, No tenderness, PEG tube site without drainage, no surrounding erythema Integumentary: minimal erythema in R upper thigh Temp Pulse Resp BP Pulse Ox 98.6 F 66 16 108/52 L 94 12/08/20 12:00 12/08/20 12:00 12/08/20 12:00 12/08/20 12:00 12/08/20 12:00 Laboratory Data at Discharge: WBC 6.50 K/uL (4.3-10.9) 12/08/20 03:44 Hgb 8.4 g/dL (13.6-17.9) L 12/08/20 03:44 Hct 24.3 % (39.6-49.0) L 12/08/20 03:44 Plt Count 126 K/uL (152-406) L 12/08/20 03:44 PT 12.5 SECONDS (9.5-12.5) 12/02/20 15:14 INR 1.09 12/02/20 15:14 Sodium 137 mmol/L (136-145) 12/08/20 03:44 Potassium 3.9 mmol/L (3.5-5.1) 12/08/20 03:44 BUN 51 mg/dL (7-18) H 12/08/20 03:44 Creatinine 1.19 mg/dL (0.55-1.3) 12/08/20 03:44 Glucose 138 mg/dL (74-106) H 12/08/20 03:44 Total Bilirubin 0.3 mg/dL (0.2-1.0) 12/08/20 03:44 AST 27 U/L (15-37) 12/08/20 03:44 ALT 38 U/L (12-78) 12/08/20 03:44 Alkaline Phosphatase 88 U/L (45-117) 12/08/20 03:44 Lipase 361 U/L (73-393) 12/01/20 16:09 Home Medications: Aspirin [Adult Aspirin Regimen] 81 mg PO BEDTIME 06/04/20 Atorvastatin Calcium [Lipitor] 80 mg PO BEDTIME 06/04/20 Furosemide [Lasix*] 40 mg PO BID 06/04/20 Metformin ER [Glucophage ER*] 500 mg PO BID 06/04/20 Amlodipine [Norvasc*] 5 mg PO DAILY 07/16/20 Clopidogrel Bisulfate [Plavix*] 75 mg PO DAILY 07/16/20 Escitalopram [Lexapro*] 20 mg PO DAILY 07/16/20 Gabapentin 300 mg PO BID 07/16/20 Trazodone [Desyrel*] 150 mg PO BEDTIME 07/16/20 Acetaminophen [Tylenol Extra Strength] 500 mg PO Q4HP PRN 12/02/20 Acetaminophen [Tylenol Extra Strength] 500 mg PO Q4HP PRN 12/02/20 Ferrous Sulfate [Ferrous Sulfate*] 325 mg PO TID 12/02/20 Ondansetron [Zofran (Odt)*] 4 mg SL Q6H PRN 12/02/20 Sucralfate [Carafate] 1 mg PO QID 12/02/20 Doxazosin [Cardura*] 2 mg FT BEDTIME 30 Days #30 tab 12/08/20 Glucerna 1.5 Higinio 360 ml FT QID #10 bot 12/08/20 Insulin Lispro [Admelog] See Protocol SQ SEECOM #1 vial 12/08/20 Nystatin Powder [Mycostatin (Powder)*] 1 appl TOP BID 14 Days #2 btl 12/08/20 Sucralfate [Carafate Liq] 1 gm GT QID #120 ucup 12/08/20 levoFLOXacin [Levaquin] 750 mg PO DAILY 4 Days #4 tab 12/08/20 New Medications: Insulin Lispro [Admelog] See Protocol SQ SEECOM #1 vial Sucralfate [Carafate Liq] 1 gm GT QID #120 ucup Doxazosin [Cardura*] 2 mg FT BEDTIME 30 Days #30 tab Glucerna 1.5 Higinio 360 ml FT QID #10 bot levoFLOXacin [Levaquin] 750 mg PO DAILY 4 Days #4 tab Nystatin Powder [Mycostatin (Powder)*] 1 appl TOP BID 14 Days #2 btl Diet: Glucerna Activity: Weight bearing as tolerated Followup: Kali Yadav DO [ACTIVE - CAN ADMIT] - Aidan Rios MD [Primary Care Provider] - Demetrio Best [ACTIVE - CAN ADMIT] - Time spent managing pt's care (in minutes): 50
--- NOTE | 2020-12-08 16:38 | P.PN ---
Date of Service: 12/08/20 Vital Signs Temp Pulse Resp BP Pulse Ox 98.6 F 66 16 108/52 L 94 12/08/20 12:00 12/08/20 12:00 12/08/20 12:00 12/08/20 12:00 12/08/20 12:00 Medications Acetaminophen (Acetaminophen 500 Mg Tab) 500 mg PO Q4H PRN PRN Reason: Pain scale 2-4 (Mild) Last Admin: 12/04/20 11:00 Dose: 500 mg Documented by: Amlodipine Besylate (Amlodipine 5 Mg Tab) 5 mg PO 1200 [facility] Last Admin: 12/08/20 11:27 Dose: 5 mg Documented by: Aspirin (Aspirin Ec 81 Mg Tab) 81 mg PO BEDTIME [facility] Last Admin: 12/07/20 20:20 Dose: 81 mg Documented by: Atorvastatin Calcium (Atorvastatin 80 Mg Tab) 80 mg PO BEDTIME [facility] Last Admin: 12/07/20 20:21 Dose: 80 mg Documented by: Calcitonin Wiseman (Calcitonin Nasal [place] 200 Iu/Dose) 1 sprays GEMA 1200 [facility] Last Admin: 12/08/20 11:48 Dose: 1 sprays Documented by: Clopidogrel Bisulfate (Clopidogrel 75 Mg Tablet) 75 mg PO DAILY [facility] Last Admin: 12/08/20 09:31 Dose: 75 mg Documented by: Dextrose (D50w 25 Gm/50 Ml Vial) 12.5 gm IV PRN PRN; Protocol PRN Reason: HYPOGLYCEMIA Doxazosin Mesylate (Doxazosin 2 Mg Tab) 2 mg PO BEDTIME [facility] Last Admin: 12/07/20 20:21 Dose: 2 mg Documented by: Enteral Nutritional Formula (Glucerna 1.5 Higinio 1,000 Ml Bot) 0 ml FT QID [facility] Last Admin: 12/08/20 11:49 Dose: 360 ml Documented by: Escitalopram Oxalate (Escitalopram 20 Mg Tab) 20 mg PO DAILY [facility] Last Admin: 12/08/20 09:30 Dose: 20 mg Documented by: Ferrous Sulfate (Ferrous Sulfate 220 Mg/5 Ml Elixir) 325 mg PO TID [facility] Last Admin: 12/08/20 12:48 Dose: 325 mg Documented by: Furosemide (Furosemide 40 Mg Tablet) 40 mg PO BID [facility] Last Admin: 12/08/20 09:30 Dose: 40 mg Documented by: Gabapentin (Gabapentin 300 Mg Cap) 300 mg PO BID [facility] Last Admin: 12/08/20 09:30 Dose: 300 mg Documented by: Glucagon (Glucagon 1 Mg/Vial) 1 mg IM 1X PRN; Protocol PRN Reason: HYPOGLYCEMIA Ceftriaxone Sodium/Sodium Chloride (Rocephin 1 Gm/10 Ml Swi Ivp) 1 gm in 10 mls @ 600 mls/hr IV DAILY [facility]; Protocol Last Admin: 12/08/20 09:32 Dose: 10 mls Documented by: Insulin Human Regular (Insulin -Regular Human 50 Unit/0.5 Ml Ml) 0 unit SQ ACHS [facility]; Protocol Last Admin: 12/08/20 11:26 Dose: Not Given Documented by: Lactobacillus Acidoph/Bulgaricus (Lactobacillus/Acidophilus Tab) 1 tab PO BID [facility] Last Admin: 12/08/20 09:30 Dose: 1 tab Documented by: Nystatin (Nystatin Pwdr [id number] Unit/Gm) 1 appl TOP BID [facility] Last Admin: 12/08/20 09:29 Dose: 1 appl Documented by: Ondansetron HCl (Ondansetron 4 Mg/2 Ml Vial) 4 mg IV Q8H PRN PRN Reason: NAUSEA / VOMITING Last Admin: 12/04/20 19:43 Dose: 4 mg Documented by: Sodium Chloride (Flush Normal Saline 10 Ml) 10 ml IV BID [facility] Last Admin: 12/08/20 09:00 Dose: 10 ml Documented by: Sucralfate (Sucralfate 1gm/10ml Ucup) 1 gm PO 0700,1100,1600,2100 [facility] Last Admin: 12/08/20 11:47 Dose: 1 gm Documented by: Trazodone HCl (Trazodone 150 Mg Tab) 150 mg PO BEDTIME [facility] Last Admin: 12/07/20 20:20 Dose: 150 mg Documented by: Microbiology Results 12/01/20 17:07 Clean Catch Urine Evant Count - Final <10,000 CFU/ML. 12/01/20 17:07 Clean Catch Urine - Final Enterobacter Cloacae Gram Neg Ke[place] Assessment/ Plan: Nephrology Feeling better this morning. Fatigue. Episode of confusion and hypotension overnight. Vitals, medications, blood work and imaging reviewed in the chart. NAD. Thin. Sarcopenia. CTA. RRR. Diminished bases. Hip Edema 1+ AAO. CKD III with proteinuria -No NSAIDs Hyponatremia -Continue Lasix Hypocalcemia -Continue Calcitriol HTN with CKD -Continue amlodipine DM II with CKD -RISS Moderate malnutrition -Maintain nutrition Anemia in chronic illness -Transfuse PRBC as needed -Give Retacrit PRN BPH with LUTS -Continue Doxazosin Acute cystitis with enterobacter cloacae -Continue Rocephin Case reviewed with Dr. Carrera
[2020-12-08 17:15] VITALS: BP 134/61; TEMP 99.1
== END 2020-12-08 21:30 | disposition home health service (06) | DRG 689 ==
LOC: ER 14:42 → ERHOLD 18:06 → 2ND 22:16
PROVIDERS: ADMIT Family Medicine; ATTEND Hospitalist
PROC: 30233N1 Transfusion of Nonautologous Red Blood Cells into Peripheral Vein, Percutaneous Approach (ICD-10-PCS; principal; 2020-12-01)
DX: N30.00 Acute cystitis without hematuria (principal); J18.9 Pneumonia, unspecified organism; N17.9 Acute kidney failure, unspecified; D62 Acute posthemorrhagic anemia; I50.32 Chronic diastolic (congestive) heart failure; Z68.1 Body mass index [BMI] 19.9 or less, adult; E44.1 Mild protein-calorie malnutrition; J44.0 Chronic obstructive pulmonary disease with (acute) lower respiratory infection; I13.0 Hypertensive heart and chronic kidney disease with heart failure and stage 1 through stage 4 chronic kidney disease, or unspecified chronic kidney disease; E87.1 Hypo-osmolality and hyponatremia; E86.0 Dehydration; N18.30 Chronic kidney disease, stage 3 unspecified; E11.22 Type 2 diabetes mellitus with diabetic chronic kidney disease; I25.10 Atherosclerotic heart disease of native coronary artery without angina pectoris; E78.5 Hyperlipidemia, unspecified; K52.9 Noninfective gastroenteritis and colitis, unspecified; H70.12 Chronic mastoiditis, left ear; H91.93 Unspecified hearing loss, bilateral; J34.89 Other specified disorders of nose and nasal sinuses; N13.9 Obstructive and reflux uropathy, unspecified; N40.1 Benign prostatic hyperplasia with lower urinary tract symptoms; E11.649 Type 2 diabetes mellitus with hypoglycemia without coma; I95.9 Hypotension, unspecified; G20 Parkinson's disease; I25.2 Old myocardial infarction; L08.9 Local infection of the skin and subcutaneous tissue, unspecified; S03 Dislocation and sprain of joints and ligaments of head; B96.89 Other specified bacterial agents as the cause of diseases classified elsewhere; B95.2 Enterococcus as the cause of diseases classified elsewhere; R33.9 Retention of urine, unspecified; R04.0 Epistaxis; R00.1 Bradycardia, unspecified; Z88.8 Allergy status to other drugs, medicaments and biological substances; Z91.040 Latex allergy status; Z79.82 Long term (current) use of aspirin; Z79.02 Long term (current) use of antithrombotics/antiplatelets; Z93.1 Gastrostomy status; Z79.4 Long term (current) use of insulin; Z79.899 Other long term (current) drug therapy; Z95.1 Presence of aortocoronary bypass graft; Z96.642 Presence of left artificial hip joint; Z20.822 Contact with and (suspected) exposure to COVID-19
CPT/HCPCS: 36415; 36430; 70491; 71045; 74177; 74230; 80048; 80053; 80076; 81003; 81015; 82274; 82947; 83605; 83690; 84484; 85025; 85610; 86850; 86900; 86901; 87040; 87070; 87077; 87086; 87088; 87186; 87205; 92526; 92610; 92611; 93005; 99285; J0456; J0696; J1200; J1815; J2405; J3370; J7030; J7050; J7799; P9016; Q5106; Q9967; U0003

== ENCOUNTER 2020-12-15 13:38 | Inpatient (IN) | payer OTHER ==
--- OUTSIDE RECORDS SUMMARY | 2020-12-15 13:41 | XMS REPORT | Continuity of Care Document ---
:1955 Author Organization [facility] t Address [address] [place] [address] Care Team Providers Name Role Phone Misael [...] Burn Burn Problem Active [facility] [place] [facility] Allergies, Adverse Reactions, Alerts Allergy Allergy Status Severity Reaction(s) Onset Inactive Treating Comm ents Source Name Type Date Date Clinician Linda Regaladoi Active Hallucinatio [facility] TB12 ty to ns ity of adverse [place] reaction Physici s to ans drug (finding ) Family History Family Member Diagnosis Comments Start Date Stop Date Source Mother Family history of [facility] [place] hypertension Physicians Mother Family history of [facility] [place] malignant neoplasm Physic ians Mother Family history of [facility] [place] coronary artery Physician s disease Mother Family history [facility] [place] Seneca's disease Physici ans Mother Family history of [facility] [place] diabetes mellitus Physici ans Father Family history of [facility] [place] diabetes mellitus Physici ans Father Family history of [facility] [place] hypertension Physicians Father Family history of [facility] [place] coronary artery Physician s disease Sister Family history of [facility] [place] malignant neoplasm Physic ians Brother Family history of [facility] [place] pancreatic cancer Physici ans Social History Smoking Status Start Date Stop Date Source Ex-smoker (finding) [place] [facility] Medications Ordered Filled Start Stop Current [...] PATCH ity of Transdermal Transdermal 00:00: DAILY [place] Patch 24 Patch 24 00 DIRECTED. Ph [...] ity of Sublingual Sublingual 00:00: UNDER THE [place] Tablet Tablet 00 TONGUE Physici Sublingual Sublingual EVERY 5 ans MINUTES FOR UP TO 3 DOSES NEEDED FOR CHEST PAIN.CALL 911 IF PAIN PERSISTS. HumuLIN R HumuLIN R 2019- Yes M.A. inject 12 Univers 100 UNIT/ML 100 UNIT/ML 3-05 units ity of Injection Injection 00:00: under the [place] Solution Solution 00 skin 2 Physi ci times ans daily before breakfast and dinner. Vital Signs Vital Name Observation Time Observation Value Comments Source Heart Rate 2019-09-29 75 /min [facility] 16:23:00 [place] [facility] Systolic blood 2019-09-29 155 mm[Hg] Location: [facility] 16:23:00 Position: [place] Physician s Sitting Diastolic blood 2019-09-29 68 mm[Hg] Location: [facility] 16:23:00 Position: [place] Physician s Sitting Body height 2019-09-29 72 [in_us] [facility] :23:00 [place] [facility] Weight 2019-09-29 163 [lb_av] [facility] :23:00 [place] [facility] Body mass index 2019-09-29 22.11 kg/m2 [place] o f (BMI) [Ratio] 16:23:00 [place] [facility] ns Body temperature 2019-09-29 97.9 [degF] Method: Oral [facility] :23:00 [place] [facility] Procedures Procedure Date / Time Performing Source Performed Clinician [B] CMP 2019-09-28 [facility] 00:00:00 [place] [facility] [B] CBC 2019-09-28 [facility] 00:00:00 [place] [facility] History of Cyst excision Univers [facility] History of Debridement Univers y [facility] History of Hand Surgery Universi ty [facility] History of [facility] History of University of Esophagogastroduodenoscopy [place] [facility] History of Colonoscopy Univers y [facility] History of Surgical removal of U niversity of foreign body [place] [facility] History of CABG [facility] Encounters Start End Encounter Admission Attending Care Care Encounter Source Date/Time Date/Time Type Type Clinicians Facility Department ID 2020-11-30 2020-11-30 Patient Jatin Douglas [id number] 00:00:00 00:00:00 Outreach Hugh Mcnally [id number] [place] [id number] 2020-11-22 2020-11-22 Nurse ALPHONSE Villareal [id number] 00:00:00 00:00:00 Triage Liane Artemio VILLAGOMEZ [id number] [facility] [id number] 2020-11-16 2020-11-16 Orders Doctor ALPHONSE [id number] 00:00:00 00:00:00 Only Unassigned, HERNANDO [id number] [place] [facility] [id number] 2020-11-11 2020-11-11 Telephone Charly [facility] [id number] 00:00:00 00:00:00 Derrick PRIMARY [id number] CARE [id number] PAVILLION [id number] 2020-11-10 2020-11-10 Transition Jatin Campbell [id number] 00:00:00 00:00:00 of Care Nathalia Mcnally [id number] [place] [id number] 2020-11-10 2020-11-10 Refill Laurie ORMARLEEN [id number] 00:00:00 00:00:00 Haris PRIMARY [id number] [place] CARE [id number] BOW [id number] 2019-09-29 2019-09-29 Appointmen ELMO, [facility] [id number] Univers 15:00:00 15:00:00 tIGOR MADDEN M.D. [facility] [place] COSAT M.D. Failure - Physic i [place] ans Results This patient has no known results.
--- NOTE | 2020-12-15 14:33 | RAD REPORT ---
EXAM DESCRIPTION: RAD - Chest Single View - 12/15/2020 2:24 pm CLINICAL HISTORY: COUGH Chest pain. COMPARISON: Chest Single View dated 12/01/2020; Abdomen 1 View (KUB) dated 11/23/2020; Chest Single Vi ew dated 11/23/2020; Chest Single View dated 10/22/2020 FINDINGS: Portable technique limits examination quality. [id number] interstitial pulmonary edema. The heart is prominent in size. Sternotomy wires prese nt. IMPRESSION: Mild to moderate CHF pattern.
[2020-12-15 14:54] LABS: Absolute Lymphocytes (CBC) 0.7 K/uL (0.7-4.9); Basophils % 0.8 % (0-1.3); Hematocrit 25.4 % (39.6-49.0); Lymphocytes % 9.3 % (15.3-44.8); MPV 10.1 fL (7.6-11.3); RBC Red Blood Cell Count 3.28 M/uL (4.33-5.43)
[2020-12-15 15:03] LABS: Protime INR 1.11
[2020-12-15 15:15] LABS: Albumin 2.2 g/dL (3.4-5.0); Bilirubin Direct 0.1 mg/dL (0-0.2); Bilirubin Total 0.3 mg/dL (0.2-1.0); Magnesium 2.5 mg/dL (1.8-2.4); Potassium 4.4 mmol/L (3.5-5.1); Troponin (Emerg Dept Use Only) 0.02 ng/mL (0.0-0.045)
[2020-12-15 16:22] LABS: Anisocytosis 1+; Basophilic Stippling 1+; Blood Morphology Comment NOTED (NOT SEEN); Platelet Estimate ADEQ; White Blood Cell Scan OK (OK)
[2020-12-15] MEDS ORDERED: FUROSEMIDE 100 MG/10 ML VIAL IV ONE (16:40)
[2020-12-15] MEDS ORDERED: ONDANSETRON 4 MG/2 ML VIAL IV PRN (17:10)
[2020-12-15 17:20] LABS: SARS-COV-2 RT PCR NEGATIVE (NEGATIVE)
--- NOTE | 2020-12-15 17:23 | ER ---
Nurse's Notes [facility] Name: Mumtaz Anderson Age: 65 yrs Sex: Male : 1955 Arrival Date: 12/15/2020 Time: 13:49 Bed 13 Private MD: Diagnosis: Unspecified combined systolic (congestive) and diastolic (congestive) heart failure;Pulmonary edema;Orthopnea Presentation: 12/15 13:50 Chief complaint: EMS states: called out for cold symptoms, called his PCP and told to em come to the ED, was in the hospital 1 week ago for pneumonia, denies fever or chest pain. Coronavirus screen: Client denies travel out of the [place] in the last 14 days. Ebola Screen: Patient negative for fever greater than or equal to 101.5 degrees Fahrenheit, and additional compatible Ebola Virus Disease symptoms Patient denies exposure to infectious person. Patient denies travel to an Ebola-affected area in the 21 days before illness onset. No symptoms or risks identified at this time. Initial Sepsis Screen: Does the patient meet any 2 criteria? No. Patient's initial sepsis screen is negative. Does the patient have a suspected source of infection? Yes: Productive cough/pneumonia. Risk Assessment: Do you want to hurt yourself or someone else? Patient reports no desire to harm self or others. Onset of symptoms was December 15, 2020. 13:50 Method Of Arrival: EMS: [facility] em 13:50 Acuity: VIDAL 3 em Historical: - Allergies: 13:54 Latex, Natural Rubber; em 13:54 Nexium D; em 13:54 Spironolactone; em - PMHx: 13:54 Anemia; CAD; CHF; COPD; Diabetes - IDDM; Hypertension; Myocardial infarction; em Parkinsons; Seizures; - PSHx: 13:54 left hip replacement; CABG; em - Immunization history:: Adult Immunizations up to date. - Social history:: Smoking status: Patient denies any tobacco usage or history of. Screenin:55 Abuse screen: Denies threats or abuse. Nutritional screening: No deficits noted. em Tuberculosis screening: No symptoms or risk factors identified. Fall Risk None identified. Assessment: 13:50 General: Appears in no apparent distress. comfortable, Behavior is calm, cooperative, em appropriate for age, Denies fever. Pain: Denies pain. Neuro: Level of Consciousness is awake, alert, obeys commands, Oriented to person, place, time, situation. Cardiovascular: Capillary refill < 3 seconds Patient's skin is warm and dry. Respiratory: Airway is patent Respiratory effort is even, unlabored, Respiratory pattern is regular, symmetrical. GI: Abdomen is flat, PEG tube in place, clamped. to gravity drainage. Site clean. : Holcomb in place to gravity drainage Urine is clear. Derm: Skin is intact, is thin, Skin is dry, Skin is pale, Skin temperature is warm. Musculoskeletal: Range of motion: intact in all extremities. 15:06 Reassessment: Patient appears in no apparent distress at this time. Patient and/or em family updated on plan of care and expected duration. Pain level reassessed. Patient is alert, oriented x 3, equal unlabored respirations, skin warm/dry/pink. 16:33 Reassessment: Patient appears in no apparent distress at this time. Patient and/or em family updated on plan of care and expected duration. Pain level reassessed. Patient is alert, oriented x 3, equal unlabored respirations, skin warm/dry/pink. 17:20 Reassessment: at bedside giving pt a PEG tube feeding, tolerated well, pending bed em assignment. 18:29 Reassessment: Patient appears in no apparent distress at this time. Patient and/or em family updated on plan of care and expected duration. Pain level reassessed. Patient is alert, oriented x 3, equal unlabored respirations, skin warm/dry/pink. 12/16 07:10 Reassessment: report given to pamela RN for ER hold. rr5 Vital Signs: 12/15 13:50 BP 140 / 62; Pulse 43; Resp 20; Temp 98.3; Pulse Ox 99% on R/A; Pain 0/10; em 15:06 BP 119 / 51; Pulse 48; Resp 18; Pulse Ox 98% on R/A; em 16:33 BP 141 / 60; Pulse 49; Resp 16; Pulse Ox 99% on R/A; em 17:33 BP 143 / 74; Pulse 98; Resp 15; Pulse Ox 98% on R/A; em 18:34 BP 133 / 54; Pulse 53; Resp 16; Pulse Ox 97% on R/A; em ED Course: 13:49 Patient arrived in ED. em 13:53 Triage completed. em 13:53 Homer Colon PA is PHCP. cp 13:53 Jax Lopes MD is Attending Physician. cp 13:54 Arm band placed on. em 13:55 Patient has correct armband on for positive identification. Placed in gown. Bed in low em position. Call light in reach. Side rails up X2. Adult w/ patient. Pulse ox on. NIBP on. 14:15 Inserted saline lock: 20 gauge in right forearm, using aseptic technique. Blood em collected. 14:15 Initial lab(s) drawn, by me, sent to lab. First set of blood cultures drawn by me. em 14:24 XRAY Chest (1 view) In Process Unspecified. EDMS 14:29 Simon Calvin, ANDRADE is Primary Nurse. em 17:22 Pritesh Seth MD is Hospitalizing Provider. cp 22:00 No provider procedures requiring assistance completed. Patient admitted, IV remains in rr5 place. intact, No redness/swelling at site. 04 05:45 Primary Nurse role handed off by Simon Calvin, ANDRADE tt3 Administered Medications: 06/03 16:13 CANCELLED (Physician Discretion): Lasix (furosemide) 40 mg IVP once; give over 2 minutescp 16:24 Drug: Lasix (furosemide) 60 mg Route: IVP; Site: right forearm; em 16:47 Follow up: Response: No adverse reaction em 17:50 Drug: Insulin Regular Human 7 units {Co-Signature: ss (Marilyn Cunningham RN).} Route: em Sub-Q; Site: right upper arm; Outcome: 17:23 Decision to Hospitalize by Provider. cp 22:00 Admitted to ER Hold. Please see [facility] for further documentation. rr5 22:00 Condition: stable 22:00 Instructed on the need for admit. 06/04 15:54 Patient left the ED. kl Signatures: Dispatcher [employer] Enid Barrera RN RN kl Munoz, Edgar, ANDRADE RN Homer Colon PA PA cp Roque, Raymond, RN RN rr5 Sanjiv Macario tt3 Marilyn Cunningham RN ss
--- NOTE | 2020-12-15 17:23 | EDPHYS ---
Physician Documentation [facility] Name: Mumtaz Anderson Age: 65 yrs Sex: Male : 1955 Arrival Date: 12/15/2020 Time: 13:49 Bed 13 Private MD: ED Physician Jax Lopes HPI: 12/15 14:00 This 65 yrs old Male presents to ER via EMS with complaints of Cold Symptoms. cp 14:00 The patient or guardian reports cough, with productive sputum, brown. cp 14:00 Onset: The symptoms/episode began/occurred yesterday. Associated signs and symptoms: cp Pertinent negatives: chest pain, fever, vomiting. Family reports patient was recently discharged from [facility] after being hospitalized for pneumonia. Finished antibiotics couple days ago. Cough returned yesterday. Family reports patient having difficulty breathing while sleeping over past several days. No fevers observed. Historical: - Allergies: 13:54 Latex, Natural Rubber; em 13:54 Nexium D; em 13:54 Spironolactone; em - PMHx: 13:54 Anemia; CAD; CHF; COPD; Diabetes - IDDM; Hypertension; Myocardial infarction; em Parkinsons; Seizures; - PSHx: 13:54 left hip replacement; CABG; em - Immunization history:: Adult Immunizations up to date. - Social history:: Smoking status: Patient denies any tobacco usage or history of. ROS: 14:05 Constitutional: Negative for body aches, fever. cp 14:05 Eyes: Negative for injury, pain, redness, and discharge. cp 14:05 ENT: Negative for ear pain, sore throat. 14:05 Cardiovascular: Negative for chest pain, edema, palpitations. 14:05 Respiratory: Positive for cough, dark colored sputum, Negative for wheezing. 14:05 Abdomen/GI: Negative for abdominal pain, nausea, vomiting, and diarrhea, constipation. 14:05 Back: Negative for pain at rest, pain with movement. 14:05 Neuro: Negative for altered mental status, headache, weakness. 14:05 All other systems are negative. Exam: 14:10 Constitutional: The patient appears in no acute distress, alert, awake, cp non-diaphoretic, non-toxic, frail. 14:10 Head/Face: Normocephalic, atraumatic. cp 14:10 Eyes: Periorbital structures: appear normal, Conjunctiva: normal, no exudate, no injection, Sclera: no appreciated abnormality, Lids and lashes: appear normal, bilaterally. 14:10 ENT: External ear(s): are unremarkable, Nose: is normal, Mouth: Lips: moist, Oral mucosa: moist, Posterior pharynx: Airway: no evidence of obstruction, patent. 14:10 Chest/axilla: Inspection: normal, Palpation: is normal, no crepitus, no tenderness. 14:10 Cardiovascular: Rate: bradycardic, Rhythm: irregular, Edema: is not appreciated, JVD: is not appreciated. 14:10 Respiratory: the patient does not display signs of respiratory distress, Respirations: normal, no use of accessory muscles, no retractions, labored breathing, is not present, Breath sounds: decreased breath sounds, are not appreciated, stridor, is not appreciated, wheezing: is not appreciated. 14:10 Abdomen/GI: Inspection: distension, is not seen, gastrostomy tube noted LUQ, Bowel sounds: active, all quadrants, Palpation: soft, in all quadrants, mild abdominal tenderness, in the left upper quadrant, rebound tenderness, is not appreciated, voluntary guarding, is not appreciated, involuntary guarding, is not appreciated. 14:10 Skin: no rash present. 14:10 Neuro: Orientation: to person, place \T\ time. Mentation: is normal. 15:10 ECG was reviewed by the Attending Physician. cp Vital Signs: 13:50 BP 140 / 62; Pulse 43; Resp 20; Temp 98.3; Pulse Ox 99% on R/A; Pain 0/10; em 15:06 BP 119 / 51; Pulse 48; Resp 18; Pulse Ox 98% on R/A; em 16:33 BP 141 / 60; Pulse 49; Resp 16; Pulse Ox 99% on R/A; em 17:33 BP 143 / 74; Pulse 98; Resp 15; Pulse Ox 98% on R/A; em 18:34 BP 133 / 54; Pulse 53; Resp 16; Pulse Ox 97% on R/A; em MDM: 13:56 Patient medically screened. cp 14:00 Differential Diagnosis: Bronchitis Influenza Pneumonia Other CHF. cp 17:25 Data reviewed: vital signs, nurses notes, lab test result(s), EKG, radiologic studies, cp plain films. 17:25 Test interpretation: by ED physician or midlevel provider: ECG, plain radiologic cp studies. 17:30 Physician consultation: Pritesh Seth MD was contacted at 17:30, regarding admission, cp to the telemetry unit. patient's condition. 12/15 13:55 Order name: Basic Metabolic Panel 12/15 13:55 Order name: CBC with Diff 12/15 13:55 Order name: LFT's 12/15 13:55 Order name: Magnesium 12/15 13:55 Order name: NT PRO-BNP 12/15 13:55 Order name: PT-INR 12/15 13:55 Order name: Troponin (emerg Dept Use Only); Complete Time: 15:36 12/15 13:55 Order name: Lactate; Complete Time: 15:12 12/15 15:13 Interpretation: LAC 1.2; Reviewed. 12/15 13:55 Order name: Procalcitonin; Complete Time: 15:36 12/15 15:36 Interpretation: Abnormal: Procalcitonin 0.11. 12/15 13:55 Order name: Blood Culture Adult (2) 12/15 13:56 Order name: Basic Metabolic Panel; Complete Time: 15:36 EDMS 12/15 15:37 Interpretation: Normal except: GLUC 247; BUN 55; GFR 62; CA 8.1. 12/15 13:56 Order name: CBC with Automated Diff; Complete Time: 17:23 EDMS 12/15 15:13 Interpretation: Normal except: RBC 3.28; HGB 8.1; HCT 25.4; MCV 77.4; MCH 24.6; MCHC cp 31.8; PLT 141; RDW 22.4; BEST% 76.0; LYM% 9.3. 12/15 13:55 Order name: XRAY Chest (1 view); Complete Time: 15:12 cp 12/15 13:56 Order name: Liver (Hepatic) Function; Complete Time: 15:36 EDMS 12/15 13:56 Order name: Magnesium; Complete Time: 15:36 EDMS 12/15 13:56 Order name: NT PRO-BNP; Complete Time: 15:36 EDMS 12/15 15:37 Interpretation: Abnormal: NT PRO-BNP 56595. 12/15 13:56 Order name: Protime (+INR); Complete Time: 15:12 EDMS 12/15 16:22 Order name: CBC Smear Scan; Complete Time: 17:23 EDMS 12/15 17:21 Order name: COVID-19/FLU A+B; Complete Time: 17:23 EDMS 12/15 21:08 Order name: Glucose, Ancillary Testing EDMS 12/16 05:35 Order name: Comprehensive Metabolic Panel EDMS 12/16 05:35 Order name: Phosphorus EDMS 12/16 05:35 Order name: Troponin I EDMS 12/16 05:35 Order name: NT PRO-BNP EDMS 12/16 05:35 Order name: Magnesium EDMS 12/16 05:43 Order name: CBC with Automated Diff EDMS 12/16 08:21 Order name: Glucose, Ancillary Testing EDMS 12/16 12:52 Order name: Glucose, Ancillary Testing EDMS 12/15 13:55 Order name: EKG; Complete Time: 13:56 cp 12/15 13:55 Order name: Cardiac monitoring; Complete Time: 15:28 cp 12/15 13:55 Order name: EKG - Nurse/Tech; Complete Time: 14:31 cp 12/15 13:55 Order name: IV Saline Lock; Complete Time: 14:31 cp 12/15 13:55 Order name: Labs collected and sent; Complete Time: 14:31 cp 12/15 13:55 Order name: O2 Per Protocol; Complete Time: 14:31 cp 12/15 13:55 Order name: O2 Sat Monitoring; Complete Time: 14:31 cp 12/15 17:16 Order name: CONS Physician Consult EDMS 12/15 17:16 Order name: Echo with Doppler EDMS EC:10 Rate is 54 beats/min. Rhythm is irregular. QRS interval is normal. QT interval is cp normal. T waves are Inverted in leads II, aVF. Interpreted by me. Reviewed by me. Administered Medications: 16:13 CANCELLED (Physician Discretion): Lasix (furosemide) 40 mg IVP once; give over 2 minutescp 16:24 Drug: Lasix (furosemide) 60 mg Route: IVP; Site: right forearm; em 16:47 Follow up: Response: No adverse reaction em 17:50 Drug: Insulin Regular Human 7 units {Co-Signature: ss (Marilyn Cunningham RN).} Route: em Sub-Q; Site: right upper arm; Disposition: 12/16 18:46 Co-signature as Attending Physician, Jax Lopes MD I agree with the assessment and kdr plan of care. Disposition: 12/15/20 17:23 Hospitalization ordered by Pritesh Seth for Inpatient Admission. Preliminary diagnosis are Unspecified combined systolic (congestive) and diastolic (congestive) heart failure, Pulmonary edema, Orthopnea. - Bed requested for Telemetry/MedSurg (Inpatient). - Status is Inpatient Admission. kl - Condition is Stable. - Problem is an acute exacerbation. - Symptoms have improved. Signatures: Dispatcher [employer] EDMS Enid Richey RN RN Torri Pryor RN RN Jax Lopes MD MD [facility] Simon Calvin RN RN em Homer Colon PA PA cp Marilyn Cunningham RN ss Corrections: (The following items were deleted from the chart) 12/15 15:37 15:36 Normal except: GLUC 247; BUN 55; GFR 62. cp cp 16:13 15:58 Lasix (furosemide) 40 mg IVP once; give over 2 minutes ordered. cp cp 16:31 13:56 Influenza Screen (A \T\ B)+BA.LAB.BRZ ordered. EDTX EDMS 16:31 13:56 CORONAVIRUS+MR.LAB.BRZ ordered. EDTX EDMS 17:23 17:23 Hospitalization Ordered by Pritesh Seth MD for Inpatient Admission. Preliminary cp diagnosis is Unspecified combined systolic (congestive) and diastolic (congestive) heart failure; Pulmonary edema. Bed requested for Telemetry/MedSurg (Inpatient). Status is Inpatient Admission. Condition is Stable. Problem is an acute exacerbation. Symptoms have improved. cp 19:10 17:23 12/15/2020 17:23 Hospitalization Ordered by Pritesh Seth MD for Inpatient mw Admission. Preliminary diagnosis is Unspecified combined systolic (congestive) and diastolic (congestive) heart failure; Pulmonary edema; Orthopnea. Bed requested for Telemetry/MedSurg (Inpatient). Status is Inpatient Admission. Condition is Stable. Problem is an acute exacerbation. Symptoms have improved. cp 12/16 15:09 12/15 19:10 12/15/2020 17:23 Hospitalization Ordered by Pritesh Seth MD for Inpatient kl Admission. Preliminary diagnosis is Unspecified combined systolic (congestive) and diastolic (congestive) heart failure; Pulmonary edema; Orthopnea. Bed requested for [facility] ER HOLD. Status is Inpatient Admission. Condition is Stable. Problem is an acute exacerbation. Symptoms have improved. 12/16 15:54 15:09 12/15/2020 17:23 Hospitalization Ordered by Pritesh Seth MD for Inpatient kl Admission. Preliminary diagnosis is Unspecified combined systolic (congestive) and diastolic (congestive) heart failure; Pulmonary edema; Orthopnea. Bed requested for Telemetry/MedSurg (Inpatient). Status is Inpatient Admission. Condition is Stable. Problem is an acute exacerbation. Symptoms have improved. kl
[2020-12-15] MEDS ORDERED: INSULIN -REGULAR HUMAN 50 UNIT/0.5 ML ML ONE ×2 (17:56→21:27)
[2020-12-15] MEDS: ENOXAPARIN 40 MG/0.4 ML SQ SCH (19:30)
[2020-12-15] MEDS ORDERED: METOPROLOL TAR 25 MG TAB ONE (19:43)
[2020-12-15] MEDS ORDERED: POTASSIUM 25 MEQ EFFERV TAB ONE (19:43)
[2020-12-15] MEDS ORDERED: ENOXAPARIN 40 MG/0.4 ML SQ ONE (19:43)
[2020-12-15] MEDS: METOPROLOL TAR 25 MG TAB PO SCH (20:15)
[2020-12-15] MEDS: POTASSIUM 25 MEQ EFFERV TAB PO SCH (20:16)
[2020-12-15] MEDS ORDERED: GLUCAGON 1 MG/VIAL IM PRN (20:58)
[2020-12-15] MEDS ORDERED: D50W 25 GM/50 ML SYRINGE IV PRN (20:58)
[2020-12-15] MEDS: INSULIN -REGULAR HUMAN 50 UNIT/0.5 ML ML SQ SCH (21:00)
[2020-12-15] MEDS: IPRATROPIUM BROM 0.5MG/2.5ML NEB SCH (21:15)
[2020-12-15] MEDS: ALBUTEROL 2.5 MG/3 ML NEB SOL NEB SCH (21:15)
[2020-12-15] MEDS ORDERED: IPRATROPIUM BROM 0.5MG/2.5ML ONE (21:30)
[2020-12-15] MEDS ORDERED: ALBUTEROL 2.5 MG/3 ML NEB SOL ONE (21:30)
[2020-12-16] MEDS: FUROSEMIDE 20 MG/ 2ML VIAL IV SCH ×3 (00:47→17:15)
[2020-12-16] MEDS ORDERED: FUROSEMIDE 20 MG/ 2ML VIAL ONE ×2 (01:03→08:48)
[2020-12-16] MEDS ORDERED: ALBUTEROL 2.5 MG/3 ML NEB SOL NEB SCH (02:00)
[2020-12-16] MEDS ORDERED: IPRATROPIUM BROM 0.5MG/2.5ML NEB SCH (02:00)
[2020-12-16] MEDS ORDERED: IPRATROPIUM BROM 0.5MG/2.5ML ONE ×4 (02:31→14:36)
[2020-12-16] MEDS ORDERED: ALBUTEROL 2.5 MG/3 ML NEB SOL ONE ×4 (02:31→14:35)
[2020-12-16] MEDS: ALBUTEROL 2.5 MG/3 ML NEB SOL NEB SCH ×4 (02:40→20:10)
[2020-12-16] MEDS: IPRATROPIUM BROM 0.5MG/2.5ML NEB SCH ×4 (02:40→20:10)
[2020-12-16 05:17] LABS: Basophils % 0.9 % (0-1.3); Hematocrit 23.9 % (39.6-49.0); Lymphocytes % 14.8 % (15.3-44.8); MPV 10.3 fL (7.6-11.3); RBC Red Blood Cell Count 3.13 M/uL (4.33-5.43)
[2020-12-16 05:35] LABS: Albumin 2.2 g/dL (3.4-5.0); Bilirubin Total 0.2 mg/dL (0.2-1.0); Magnesium 2.5 mg/dL (1.8-2.4); Phosphorus 3.5 mg/dL (2.5-4.9); Potassium 4.3 mmol/L (3.5-5.1); Protein, Total 5.9 g/dL (6.4-8.2); Troponin I 0.02 ng/mL (0.0-0.045)
[2020-12-16] MEDS: INSULIN -REGULAR HUMAN 50 UNIT/0.5 ML ML SQ SCH ×4 (07:30→21:34)
[2020-12-16] MEDS: ENOXAPARIN 40 MG/0.4 ML SQ SCH (08:45)
[2020-12-16] MEDS: POTASSIUM 25 MEQ EFFERV TAB PO SCH ×2 (08:45→21:00)
[2020-12-16] MEDS: ASPIRIN EC 81 MG TAB PO SCH (08:45)
[2020-12-16] MEDS ORDERED: ASPIRIN EC 81 MG TAB PO ONE (08:48)
[2020-12-16] MEDS ORDERED: POTASSIUM 25 MEQ EFFERV TAB ONE (08:48)
[2020-12-16] MEDS ORDERED: ENOXAPARIN 40 MG/0.4 ML SQ ONE (08:51)
[2020-12-16] MEDS: METOPROLOL TAR 25 MG TAB PO SCH ×2 (09:00→21:00)
[2020-12-16] MEDS: lisinopriL 10 MG TAB PO SCH (09:00)
[2020-12-16] MEDS ORDERED: JEVITY 1.5 CAL LIQUID 1,000 ML BOT FT SCH (09:00)
--- NOTE | 2020-12-16 11:20 | ECHO ---
HEIGHT: 5 ft 3 in WEIGHT: 130 lb 0.106 oz DATE OF STUDY: 12/16/[address]: Pritesh Seth MD 2-DIMENSIONAL: YES M.MODE: YES DOPPLER: YES COLOR FLOW: YES TDS: NO PORTABLE: NO DEFINITY: NO BUBBLE STUDY: NO DIAGNOSIS: ACUTE CONGESTIVE HEART FAILURE CARDIAC HISTORY: CATHERIZATION: SURGERY: YES PROSTHETIC VALVE: PACEMAKER: MEASUREMENTS (cm) DIASTOLIC (NORMALS) SYSTOLIC (NORMALS) IVSd 1.1 (0.6-1.2) LA Diam 4.3 (1.9-4.0) LVEF 55-60% LVIDd 4.1 (3.5-5.7) LVIDs 3.4 (2.0-3.5) %FS 16% LVPWd 1.4 (0.6-1.2) Ao Diam 3.6 (2.0-3.7) 2 DIMENSIONAL ASSESSMENT: RIGHT ATRIUM: NORMAL LEFT ATRIUM: NORMAL RIGHT VENTRICLE: NORMAL LEFT VENTRICLE: NORMLA TRICUSPID VALVE: MITRAL VALVE: PULMONIC VALVE: NORMAL AORTIC VALVE: PERICARDIAL EFFUSION: TRACE AORTIC ROOT: NORMAL LEFT VENTRICULAR WALL MOTION: NORMAL DOPPLER/COLOR FLOW: SEE BELOW COMMENTS: NORMAL LEFT VENTRICULAR EJECTION FRACTION 55-60%. MILD MITRAL, TRICUSPID AND AORTIC REGURGITATION. TECHNOLOGIST: Melissa ALLEN
[2020-12-16] MEDS ORDERED: INSULIN -REGULAR HUMAN 50 UNIT/0.5 ML ML ONE (13:07)
--- NOTE | 2020-12-16 16:18 | CON ---
Date of Consultation: 12/16/2020 Reason For Consultation: Chest pain and shortness of breath. History Of Present Illness: A 65-year-old male with history of coronary artery disease, CHF, COPD, d iabetes, hypertension, status post bypass surgery in the past, comes in with cough, productive yellow to gonzales sputum along with some chest discomfort and shortness of breath. No orthopnea or lower extr emity edema. No nausea, vomiting, or diarrhea. No abdominal pain. No other complaints. Past Medical History: As outlined above in HPI. Medications: Refer to reconciliation sheet for detailed list. Allergies: SPIRONOLACTONE. Family History: No premature coronary artery disease or cancer. Social History: He does not drink or use any drugs. Review of Systems: All systems reviewed and they were negative except what was mentioned in the HPI. Physical Examination: Vital Signs: Temperature is 98.0, pulse 54, breathing at 18, blood pressure 118/56, saturating 99%. General: A pleasant middle-aged male, in no distress. Head and Neck: Pupils are equal, reactive to light. Intact eye movements. No JVD. No cervical lym phadenopathy. Neck is supple. Thyroid is not enlarged. Lungs: Clear to auscultation bilaterally. No rhonchi, rales, or crackles. No accessory muscle use. Heart: Regular rate and rhythm. No extra sounds. Abdomen: Soft, nontender. Bowel sounds positive. No organomegaly. No masses or hernia. No rigidi ty or rebound. Extremities: No edema, clubbing, or cyanosis. Intact pulses. Skin: No rashes. Neuro: Alert, awake, oriented x3. No acute focal deficits appreciated. Investigations: Troponin 0.02, NT-proBNP is 13,860. Creatinine is 1.18. Hemoglobin is 8.1. Chest x-ray, [id number] CHF pattern. Assessment And Plan: 1.Acute on chronic congestive heart failure exacerbation. Please obtain echocardiogram to evaluate ejection fraction. Admit, start on Lasix 40 mg IV q.12 hours and trend troponins. Further plan acco rding to echo results. 2.Chest pain. First troponin is negative. EKG without acute specific abnormalities. Obtain an ech o and trend cardiac enzymes. The patient will need a stress test at one point, but if troponins are negative and heart failure is under control, especially if the EF is normal, we can probably release after 24 hours observation if troponins remain negative. Thank you for the consult. /ERLIN Voice ID: [id number] Report ID: [id number]
[2020-12-16] MEDS ORDERED: FUROSEMIDE 20 MG/ 2ML VIAL IV SCH (17:00)
[2020-12-16 17:27] LABS: Absolute Lymphocytes (CBC) 0.8 K/uL (0.7-4.9); Hematocrit 22.1 % (39.6-49.0); Lymphocytes % 13.4 % (15.3-44.8); MPV 10.4 fL (7.6-11.3); RBC Red Blood Cell Count 2.89 M/uL (4.33-5.43)
[2020-12-16 17:44] VITALS: BMI 17.6
[2020-12-16 18:36] LABS: Anisocytosis 2+; Blood Morphology Comment NOTED (NOT SEEN); Platelet Estimate DECR; White Blood Cell Scan OK (OK)
[2020-12-16] MEDS: GLUCERNA 1.5 CAL 1,000 ML BOT FT SCH (21:00)
[2020-12-16] MEDS ORDERED: NA CHLORIDE 0.9% 250 ML ONE (21:51)
[2020-12-17] MEDS: FUROSEMIDE 20 MG/ 2ML VIAL IV SCH ×3 (01:01→16:07)
[2020-12-17] MEDS: IPRATROPIUM BROM 0.5MG/2.5ML NEB SCH ×4 (01:50→19:30)
[2020-12-17] MEDS: ALBUTEROL 2.5 MG/3 ML NEB SOL NEB SCH ×4 (01:50→19:30)
[2020-12-17] MEDS: ENOXAPARIN 40 MG/0.4 ML SQ SCH (07:26)
[2020-12-17] MEDS: POTASSIUM 25 MEQ EFFERV TAB PO SCH (07:28)
[2020-12-17] MEDS: ASPIRIN EC 81 MG TAB PO SCH ×2 (07:28→20:17)
[2020-12-17] MEDS: GLUCERNA 1.5 CAL 1,000 ML BOT FT SCH ×4 (07:28→20:36)
[2020-12-17] MEDS: INSULIN -REGULAR HUMAN 50 UNIT/0.5 ML ML SQ SCH ×5 (07:30→20:41)
[2020-12-17 07:31] LABS: RBC Red Blood Cell Count 3.75 M/uL (4.33-5.43)
[2020-12-17 07:32] LABS: Absolute Lymphocytes (CBC) 0.9 K/uL (0.7-4.9); Basophils % 1.1 % (0-1.3); Hematocrit 29.2 % (39.6-49.0); Lymphocytes % 12.6 % (15.3-44.8); MPV 10.2 fL (7.6-11.3); RBC Red Blood Cell Count 3.73 M/uL (4.33-5.43)
[2020-12-17 07:39] LABS: Albumin 2.5 g/dL (3.4-5.0); Bilirubin Total 0.4 mg/dL (0.2-1.0); Potassium 5.1 mmol/L (3.5-5.1); Protein, Total 6.5 g/dL (6.4-8.2); Troponin I 0.03 ng/mL (0.0-0.045)
[2020-12-17 07:59] LABS: Folic Acid, (Folate) 12.2 ng/mL (3.1-17.5); Magnesium 2.7 mg/dL (1.8-2.4); Phosphorus 3.3 mg/dL (2.5-4.9)
[2020-12-17] MEDS: METOPROLOL TAR 25 MG TAB PO SCH ×2 (09:00→20:36)
[2020-12-17] MEDS: lisinopriL 10 MG TAB PO SCH (09:00)
[2020-12-17 10:49] LABS: Anisocytosis 2+; Blood Morphology Comment NOTED (NOT SEEN); Platelet Estimate DECR; White Blood Cell Scan OK (OK)
[2020-12-17 10:50] LABS: Basophilic Stippling 1+; Teardrop Cell 1+
--- NOTE | 2020-12-17 12:34 | RAD REPORT ---
EXAM DESCRIPTION: RAD - Chest Single View - 12/17/2020 6:22 am CLINICAL HISTORY: pneumonia Chest pain. COMPARISON: Chest Single View dated 12/15/2020; Chest Single View dated 12/01/2020; Abdomen 1 View (KUB ) dated 11/23/2020; Chest Single View dated 11/23/2020; Abdomen Pelvis W Contrast dated 12/01/2020 FINDINGS: Portable technique limits examination quality. Mild improvement is seen in bilateral lung aeration since comparative study. Left lung base infiltrat e appears mildly improved. Cardiac size is moderately enlarged. No displaced fractures. IMPRESSION: Mild improvement in left basilar lung infiltrate pattern since comparative study.
[2020-12-17] MEDS: ACETAMINOPHEN 500 MG TAB PO PRN ×2 (14:56→20:35)
[2020-12-17] MEDS ORDERED: ACETAMINOPHEN 500 MG TAB FT PRN (17:35)
[2020-12-17] MEDS ORDERED: TRAMADOL HCL 50 MG TAB FT PRN (17:35)
[2020-12-17] MEDS ORDERED: ONDANSETRON 4 MG (ODT) TAB FT PRN (17:35)
[2020-12-17] MEDS ORDERED: PROMETHAZINE 25 MG TABLET FT PRN (17:35)
[2020-12-17] MEDS: TRAZODONE 50 MG TABLET FT SCH (20:16)
[2020-12-17] MEDS: DOXAZOSIN 2 MG TAB FT SCH (20:17)
[2020-12-17] MEDS: ATORVASTATIN 80 MG TAB FT SCH (20:18)
[2020-12-17] MEDS: FERROUS SULFATE 325 MG TAB PO SCH (20:18)
[2020-12-17] MEDS: ASCORBIC ACID 500 MG TABLET FT SCH (20:19)
[2020-12-17] MEDS: GABAPENTIN 300 MG CAP FT SCH (20:20)
[2020-12-17] MEDS: CEFTRIAXONE/SWI 1gm 1 GM/10 ML SYR IV SCH (20:23)
[2020-12-17] MEDS: SUCRALFATE 1 GM/10 ML FT SCH (21:00)
[2020-12-18] MEDS: ALBUTEROL 2.5 MG/3 ML NEB SOL NEB SCH ×4 (01:40→19:25)
[2020-12-18] MEDS: IPRATROPIUM BROM 0.5MG/2.5ML NEB SCH ×4 (01:40→19:25)
[2020-12-18] MEDS: FUROSEMIDE 20 MG/ 2ML VIAL IV SCH ×3 (01:59→16:19)
[2020-12-18 05:55] LABS: Absolute Lymphocytes (CBC) 1.3 K/uL (0.7-4.9); Hematocrit 29.8 % (39.6-49.0); Lymphocytes % 23.4 % (15.3-44.8); MPV 10.2 fL (7.6-11.3); RBC Red Blood Cell Count 3.79 M/uL (4.33-5.43)
[2020-12-18 06:10] LABS: Albumin 2.2 g/dL (3.4-5.0); Bilirubin Total 0.2 mg/dL (0.2-1.0); Potassium 5.2 mmol/L (3.5-5.1); Troponin I 0.03 ng/mL (0.0-0.045)
[2020-12-18 06:17] LABS: Magnesium 2.6 mg/dL (1.8-2.4); Thyroid Stimulating Hormone 5.4 uIU/mL (0.360-3.740)
[2020-12-18] MEDS: SUCRALFATE 1 GM/10 ML FT SCH ×4 (07:30→20:29)
[2020-12-18] MEDS: INSULIN -REGULAR HUMAN 50 UNIT/0.5 ML ML SQ SCH ×4 (07:30→20:25)
[2020-12-18] MEDS: GABAPENTIN 300 MG CAP FT SCH ×2 (07:49→20:21)
[2020-12-18] MEDS: ASPIRIN EC 81 MG TAB PO SCH ×2 (07:50→20:21)
[2020-12-18] MEDS: CLOPIDOGREL 75 MG TABLET FT SCH (07:51)
[2020-12-18] MEDS: ASCORBIC ACID 500 MG TABLET FT SCH ×3 (07:51→20:20)
[2020-12-18] MEDS: FERROUS SULFATE 325 MG TAB PO SCH ×2 (07:52→20:21)
[2020-12-18] MEDS: ESCITALOPRAM 20 MG TAB FT SCH (07:53)
[2020-12-18] MEDS: CEFTRIAXONE/SWI 1gm 1 GM/10 ML SYR IV SCH ×2 (07:53→20:21)
[2020-12-18] MEDS: GLUCERNA 1.5 CAL 1,000 ML BOT FT SCH ×4 (07:54→20:25)
[2020-12-18] MEDS: METOPROLOL TAR 25 MG TAB PO SCH (07:55)
[2020-12-18] MEDS: ENOXAPARIN 40 MG/0.4 ML SQ SCH (07:56)
[2020-12-18] MEDS: CALCITONIN NASAL SPRAY 200 IU/DOSE NAS SCH (08:55)
[2020-12-18] MEDS ORDERED: AMLODIPINE 5 MG TAB FT SCH (09:00)
--- NOTE | 2020-12-18 14:14 | P.HP ---
Certification for Inpatient Patient admitted to: Inpatient With expected LOS: >2 Midnights Patient will require the following post-hospital care: None Practitioner: I am a practitioner with admitting privileges, knowledge of patient current condition, hospital course, and medical plan of care. Services: Services provided to patient in accordance with Admission requirements found in Title 42 Section 412.3 of the Code of Federal Regulations Patient History Date of Service: 12/15/20 Reason for admission: Acute CHF exacerbation History of Present Illness: Patient is a 65-year-old gentleman who came to the hospital with shortness of breath. Patient very tachypneic and requiring a Venti mask. Patient's chest x- ray showed pulmonary edema. Patient with a history of diastolic heart failure and renal insufficiency. Patient has had prior echocardiograms with normal systolic function. Patient's was started on diuretics. Patient also with IV antibiotic therapy. Patient will be admitted for further treatment. Continue with diuresing patient. Will need to discuss with patient's ex- who takes care of him regarding how much fluid he is getting and through his PEG tube. There has been concern from the nursing staff in the past that she was giving him fluids through the night because she did not want him to get dehydrated. She med accidentally be creating volume overload in her. Allergies spironolactone Adverse Reaction (Verified 12/02/20 00:07) Anaphylaxis "nexia d" Allergy (Mild, Uncoded 12/02/20 00:07) Unknown Home Medications: Aspirin [Adult Aspirin Regimen] 81 mg FT BEDTIME 06/04/20 Atorvastatin Calcium [Lipitor] 80 mg FT BEDTIME 06/04/20 Furosemide [Lasix*] 40 mg FT BID 06/04/20 Amlodipine [Norvasc*] 5 mg FT DAILY 07/16/20 Clopidogrel Bisulfate [Plavix*] 75 mg FT DAILY 07/16/20 Escitalopram [Lexapro*] 20 mg FT DAILY 07/16/20 Gabapentin 300 mg FT BID 07/16/20 Ferrous Sulfate [Ferrous Sulfate*] 325 mg FT TID 12/02/20 Doxazosin [Cardura*] 2 mg FT BEDTIME 30 Days #30 tab 12/08/20 Glucerna 1.5 Higinio 360 ml FT QID #10 bot 12/08/20 Insulin Lispro [Admelog] See Protocol SQ SEECOM #1 vial 12/08/20 Acetaminophen [Acetaminophen Extra Strength] 1 tab FT DAILY PRN 12/16/20 Ascorbic Acid [Vitamin C] 1,000 mg FT TID 12/16/20 Calcitonin [Miacalcin Nasal [place]*] 1 spray IN DAILY 12/16/20 Ondansetron HCl [Zofran] 1 tab FT Q8H PRN 12/16/20 Promethazine HCl 1 tab FT Q6H PRN 12/16/20 Sucralfate [Carafate] 1 ml FT ACHS 12/16/20 Tramadol HCl [Ultram] 50 mg FT DAILY PRN 12/16/20 Trazodone HCl 1 tab FT BEDTIME 12/16/20 - Past Medical/Surgical History Diabetic: Yes -: Diabetes mellitus type 2, insulin-dependent -: CAD -: Hypertension -: Hyperlipidemia -: COPD -: Tobacco abuse -: Fracture t12 L3 -: Lung disease -: GI disease -: seizures -: Stroke -: Knee surgery -: I&D lower right buttock -: hiatal hernia repair -: I and D to the left foot -: Left Bipolar Hemiarthroplasty 04/06/19 -: Hip surgery -: CABG -: hand sx Psychosocial/ Personal History: Patient is single. He lives with his son. - Family History Father Medical History: Heart disease, Hypertension, Lung disease, GI disease, Diabetes, Cancer, Other (see notes) Notes: parkinson's disease Mother Medical History: Heart disease, Hypertension, Diabetes, Cancer Sister Medical History: Cancer - Social History Smoking Status: Unknown if ever smoked Alcohol use: No CD- Drugs: No Review of Systems 10-point ROS is otherwise unremarkable Physical Examination - Vital Signs Temperature: 97.1 F Blood Pressure: 127/59 Pulse: 52 Respirations: 18 Pulse Ox (%): 97 - Physical Exam General: Alert, In no apparent distress, Severe distress HEENT: Atraumatic, PERRLA, Mucous membr. moist/pink, EOMI, Sclerae nonicteric Neck: Supple, 2+ carotid pulse no bruit, No LAD, Without JVD or thyroid abnormality Respiratory: Diminished, Crackles/rales Cardiovascular: Regular rate/rhythm, Normal S1 S2, Systolic murmur Gastrointestinal: Normal bowel sounds, Soft and benign, Non-distended, No tenderness Musculoskeletal: No clubbing, No tenderness Integumentary: No rashes Neurological: Normal speech, Sensation intact, Cranial nerves 3-12 intact, Abnormal gait, Abnormal strength, Abnormal tone Lymphatics: No axilla or inguinal lymphadenopathy Assessment & Plan - Problems (Diagnosis) (1) CHF exacerbation Current Visit: No Status: Acute Qualifiers: Heart failure type: combined systolic and diastolic Qualified Code(s): I50.43 - Acute on chronic combined systolic (congestive) and diastolic (congestive) heart failure (2) Depression Current Visit: No Status: Acute (3) Diabetes Current Visit: No Status: Acute (4) S/P hip hemiarthroplasty Onset Date: ~03/22/19 Current Visit: No Status: Acute (5) S/P percutaneous endoscopic gastrostomy (PEG) tube placement Current Visit: No Status: Acute (6) Diabetes mellitus type II, uncontrolled Onset Date: 11/05/16 Current Visit: No Status: Chronic Qualifiers: Glycemic state: with hyperglycemia Qualified Code(s): E11.65 - Type 2 diabetes mellitus with hyperglycemia (7) Hypertension Onset Date: 11/05/16 Current Visit: No Status: Chronic Qualifiers: Hypertension type: essential hypertension Qualified Code(s): I10 - Essential (primary) hypertension - Plan 1. Echocardiogram 2. Continue cardiac meds 3. Monitor daily intake and output; educate ex- who takes care of him on dietary feedings 4. Cardiology consultation 5. Aggressive diuresis 6. Strict I's and O's 7. Repeat CXR 8. Daily weights 9. Pureed diet 10. Strict blood sugar control 11. Education regarding diet and treatment of congestive heart failure Discharge Plan: Home Plan to discharge in: Greater than 2 days - Advance Directives Does patient have a Living Will: No Does patient have a Durable POA for Healthcare: No - Code Status/Comfort Care Code Status Assessed: Yes Code Status: Full Code Critical Care: No Time Spent Managing PTS Care (In Minutes): 45
--- NOTE | 2020-12-18 14:21 | P.PN ---
Subjective Date of Service: 12/16/20 Patient's respiratory status has improved. Will downgrade him to the general medical floor. Patient will continue with diuresing. Patient is not really getting out of bed or ambulating. is having a hard time caring for him at home. Will get physical therapy evaluation to try to assist in his ambulation. Review of Systems 10-point ROS is otherwise unremarkable Physical Examination - Vital Signs Temperature: 97.1 F Blood Pressure: 127/59 Pulse: 52 Respirations: 18 Pulse Ox (%): 97 - Physical Exam General: Alert, In no apparent distress, Oriented x3 Respiratory: Crackles/rales Cardiovascular: Regular rate/rhythm, Normal S1 S2, Systolic murmur Gastrointestinal: Normal bowel sounds, Soft and benign, Non-distended, No tenderness Musculoskeletal: No clubbing, No swelling, No tenderness Integumentary: No rashes Neurological: Sensation intact, Cranial nerves 3-12 intact - Studies Medications List Reviewed: Yes Assessment & Plan - Problems (Diagnosis) (1) CHF exacerbation Current Visit: No Status: Acute Qualifiers: Heart failure type: combined systolic and diastolic Qualified Code(s): I50.43 - Acute on chronic combined systolic (congestive) and diastolic (congestive) heart failure (2) Depression Current Visit: No Status: Acute (3) Diabetes Current Visit: No Status: Acute (4) S/P hip hemiarthroplasty Onset Date: ~03/22/19 Current Visit: No Status: Acute (5) S/P percutaneous endoscopic gastrostomy (PEG) tube placement Current Visit: No Status: Acute (6) Diabetes mellitus type II, uncontrolled Onset Date: 11/05/16 Current Visit: No Status: Chronic Qualifiers: Glycemic state: with hyperglycemia Qualified Code(s): E11.65 - Type 2 diabetes mellitus with hyperglycemia (7) Hypertension Onset Date: 11/05/16 Current Visit: No Status: Chronic Qualifiers: Hypertension type: essential hypertension Qualified Code(s): I10 - Essential (primary) hypertension - Plan 1. Echocardiogram pending; normal systolic dysfunction 2. Continue cardiac meds 3. Decrease daily water intake as patient is starting to eat a pureed diet 4. Cardiology consultation appreciated 5. Continue with Aggressive diuresis 6. Strict I's and O's 7. Repeat CXR shows improvement of pulmonary edema 8. Daily weights 9. Pureed diet 10. Strict blood sugar control 11. Education regarding diet and treatment of congestive heart failure Discharge Plan: Home Plan to discharge in: Greater than 2 days - Advance Directives Does patient have a Living Will: No Does patient have a Durable POA for Healthcare: No - Code Status/Comfort Care Code Status: Full Code Critical Care: No Time Spent Managing PTS Care (In Minutes): 45
--- NOTE | 2020-12-18 14:23 | P.PN ---
Date of Service: 12/17/20 Subjective Patient is doing better. Spoke with and she wants him to try to ambulate and do some physical therapy prior to going home. Patient is volume status is improved. Continue antibiotics. Patient did appear to have some rhythm abnormality. Cardiology feels it was sinus arrhythmia. Will continue to watch on the telemetry. Appreciate Cardiology input. Review of Systems 10-point ROS is otherwise unremarkable Physical Examination - Vital Signs Reviewed - Physical Exam General: Alert, In no apparent distress, Oriented x3 Respiratory: Crackles/rales Cardiovascular: Regular rate/rhythm, Normal S1 S2, Systolic murmur Gastrointestinal: Normal bowel sounds, Soft and benign, Non-distended, No tend erness; peg tube in place Musculoskeletal: No clubbing, No swelling, No tenderness Neurological: Sensation intact, Cranial nerves 3-12 intact; generalized weakness Assessment & Plan - Problems (Diagnosis) (1) CHF exacerbation Current Visit: No Status: Acute Qualifiers: Heart failure type: combined systolic and diastolic Qualified Code(s): I50.43 - Acute on chronic combined systolic (congestive) and diastolic (congestive) heart failure (2) Depression Current Visit: No Status: Acute (3) Diabetes Current Visit: No Status: Acute (4) S/P hip hemiarthroplasty Onset Date: ~03/22/19 Current Visit: No Status: Acute (5) S/P percutaneous endoscopic gastrostomy (PEG) tube placement Current Visit: No Status: Acute (6) Diabetes mellitus type II, uncontrolled Onset Date: 11/05/16 Current Visit: No Status: Chronic Qualifiers: Glycemic state: with hyperglycemia Qualified Code(s): E11.65 - Type 2 diabetes mellitus with hyperglycemia (7) Hypertension Onset Date: 11/05/16 Current Visit: No Status: Chronic Qualifiers: Hypertension type: essential hypertension Qualified Code(s): I10 - Essential (primary) hypertension - Plan Continue with plan of care as mentioned below: 1. Echocardiogram revealed normal systolic function and normal heart bowels 2. Continue cardiac meds 3. Adjust fluid intake and PEG tube feedings prior to discharge 4. Cardiology consultation appreciated 5. Decrease diuresing 6. Pureed diet 7. Strict blood sugar control
--- NOTE | 2020-12-18 14:24 | P.PN ---
Date of Service: 12/18/20 Subjective Spoke with Cardiology about patient's sinus arrhythmia. They recommended outpatient EP study. Patient still very weak and will work on physical therapy evaluation. Anticipate discharge over the next 24-48 hr. Review of Systems 10-point ROS is otherwise unremarkable Physical Examination - Vital Signs Reviewed - Physical Exam General: Alert, In no apparent distress, Oriented x3 Respiratory: Crackles/rales Cardiovascular: Regular rate/rhythm, Normal S1 S2, Systolic murmur Gastrointestinal: Normal bowel sounds, Soft and benign, Non-distended, No tenderness; peg tube in place Musculoskeletal: No clubbing, No swelling, No tenderness Neurological: Sensation intact, Cranial nerves 3-12 intact; generalized weakness Assessment & Plan - Problems (Diagnosis) (1) CHF exacerbation Current Visit: No Status: Acute Qualifiers: Heart failure type: combined systolic and diastolic Qualified Code(s): I50.43 - Acute on chronic combined systolic (congestive) and diastolic (congestive) heart failure (2) Depression Current Visit: No Status: Acute (3) Diabetes Current Visit: No Status: Acute (4) S/P hip hemiarthroplasty Onset Date: ~03/22/19 Current Visit: No Status: Acute (5) S/P percutaneous endoscopic gastrostomy (PEG) tube placement Current Visit: No Status: Acute (6) Diabetes mellitus type II, uncontrolled Onset Date: 11/05/16 Current Visit: No Status: Chronic Qualifiers: Glycemic state: with hyperglycemia Qualified Code(s): E11.65 - Type 2 diabetes mellitus with hyperglycemia (7) Hypertension Onset Date: 11/05/16 Current Visit: No Status: Chronic Qualifiers: Hypertension type: essential hypertension Qualified Code(s): I10 - Essential (primary) hypertension - Plan Continue with plan of care as mentioned below: 1. Echocardiogram with no significant abnormalities. Patient with dysrhythmia/sinus arrhythmia and as advised by Cardiology for outpatient EP study 2. Stopped amlodipine and metoprolol 3. Adjust fluid intake and PEG tube feedings prior to discharge 4. Cardiology consultation appreciated 5. Change Lasix to p.o. 6. Pureed diet 7. Strict blood sugar control 8. Physical therapy evaluation pending
[2020-12-18] MEDS: ACETAMINOPHEN 500 MG TAB PO PRN (15:15)
[2020-12-18] MEDS: FUROSEMIDE 20 MG TABLET PO SCH (17:00)
[2020-12-18] MEDS: DOXAZOSIN 2 MG TAB FT SCH (20:19)
[2020-12-18] MEDS: TRAZODONE 50 MG TABLET FT SCH (20:20)
[2020-12-18] MEDS: ATORVASTATIN 80 MG TAB FT SCH (20:20)
[2020-12-18] MEDS: HYDRALAZINE HCL 20 MG/ML VIAL IV PRN (22:54)
[2020-12-19] MEDS: ALBUTEROL 2.5 MG/3 ML NEB SOL NEB SCH ×4 (01:15→19:40)
[2020-12-19] MEDS: IPRATROPIUM BROM 0.5MG/2.5ML NEB SCH ×4 (01:15→19:40)
[2020-12-19 04:09] LABS: Absolute Lymphocytes (CBC) 1.3 K/uL (0.7-4.9); Hematocrit 29.3 % (39.6-49.0); Lymphocytes % 19.3 % (15.3-44.8); MPV 10.6 fL (7.6-11.3); RBC Red Blood Cell Count 3.72 M/uL (4.33-5.43)
[2020-12-19 04:29] LABS: Albumin 2.1 g/dL (3.4-5.0); Bilirubin Total 0.2 mg/dL (0.2-1.0); Potassium 5.1 mmol/L (3.5-5.1); Protein, Total 5.9 g/dL (6.4-8.2)
[2020-12-19] MEDS: SUCRALFATE 1 GM/10 ML FT SCH ×4 (07:30→21:00)
[2020-12-19] MEDS: INSULIN -REGULAR HUMAN 50 UNIT/0.5 ML ML SQ SCH ×4 (07:30→21:00)
--- NOTE | 2020-12-19 07:40 | RAD REPORT ---
EXAM DESCRIPTION: Joset Single View12/19/2020 5:05 am CLINICAL HISTORY: Shortness of breath COMPARISON: December 18, 2020 FINDINGS: Overall no significant change in the bilateral pulmonary opacities and cardiomegaly. Heart remains enlarged. Small left pleural is suspected
[2020-12-19] MEDS: CLOPIDOGREL 75 MG TABLET FT SCH (08:38)
[2020-12-19] MEDS: FUROSEMIDE 20 MG TABLET PO SCH ×2 (08:38→16:09)
[2020-12-19] MEDS: FERROUS SULFATE 325 MG TAB PO SCH ×2 (08:38→21:11)
[2020-12-19] MEDS: GABAPENTIN 300 MG CAP FT SCH ×2 (08:38→21:10)
[2020-12-19] MEDS: ASCORBIC ACID 500 MG TABLET FT SCH ×3 (08:38→21:10)
[2020-12-19] MEDS: ESCITALOPRAM 20 MG TAB FT SCH (08:39)
[2020-12-19] MEDS: CALCITONIN NASAL SPRAY 200 IU/DOSE NAS SCH (08:39)
[2020-12-19] MEDS: ENOXAPARIN 40 MG/0.4 ML SQ SCH (08:39)
[2020-12-19] MEDS: GLUCERNA 1.5 CAL 1,000 ML BOT FT SCH ×4 (08:39→21:12)
--- NOTE | 2020-12-19 11:02 | P.PN ---
Subjective Date of Service: 12/19/20 Primary Care Provider: Dr. Lopez Chief Complaint: Acute CHF exacerbation Subjective: Improving Physical Examination - Vital Signs Temperature: 97.2 F Blood Pressure: 150/67 Pulse: 73 Respirations: 18 Pulse Ox (%): 95 - Studies Medications List Reviewed: Yes Assessment & Plan Discharge Plan: Other (Inpatient rehab) Plan to discharge in: 24 Hours Physician Review Additional Text: Physical exam: General: Patient alert, cooperative. Heart: Regular rate and rhythm Lungs: Clear to auscultation Abdomen: Peg tube in place Extremities: Good range of motion. No focal deficits. No edema to the lower extremity. Mentation: Patient seems appropriate. Impression: Acute on chronic combined systolic/diastolic CHF Depression Diabetes mellitus type 2 Hypertension History of PEG tube Diabetic neuropathy Hyperlipidemia Anemia of chronic disease with iron deficiency Plan: Acute on chronic combined systolic/diastolic CHF: Echo shows no significant abnormalities. Continue with fluid restriction. Continue with Lasix. This has been changed to oral medication. Will monitor weight closely. Physical therapy evaluated patient. Physical therapy recommends inpatient rehab. Will consult inpatient rehab for patient. Patient agreeable to plan of care. Depression: Continue with his medication-Lexapro, trazodone Diabetes mellitus type 2: Accu-Cheks in place. Continue sliding scale. Hypertension: Medications have been adjusted. Continue Cardura. Norvasc and metoprolol have been discontinued. Will monitor blood pressure closely History of PEG tube: Continue with feeding-Glucerna. Diabetic neuropathy: Continue gabapentin Hyperlipidemia: Continue Lipitor Anemia of chronic disease with iron deficiency: Continue with iron supplementation. DVT prophylaxis: Lovenox Code status: Patient is full code Advanced care planning-30 min: Patient evaluated by Physical therapy earlier. Physical therapy recommends inpatient rehab. Patient and agreeable to this. Await approval. Time Spent Managing Pts Care (In Minutes): 55
[2020-12-19] MEDS: guaiFENesin 100 MG/5 ML UCUP PO PRN ×2 (12:15→21:15)
--- NOTE | 2020-12-19 12:21 | PN ---
Date of Progress Note: 12/19/2020 Subjective: Mr. Anderson had come in with congestive heart failure exacerbation, acute on chronic. To day, he is feeling much better. He has diuresed well. His I's and O's are adequate. His weight is down. He has no symptoms. Objective: Chest: Clear. Vital Signs: Stable, afebrile. Cardiac: Revealed a regular rhythm and rate with S4 gallops. Extremities: He has no edema. Diagnostic Data: Fairly unremarkable. Echocardiogram remains pending. Assessment And Plan: I think he can go home today whenever it is okay with Dr. Seth and we will see him in the office as an outpatient. ANA/ERLIN Voice ID: [id number] Report ID: [id number]
[2020-12-19] MEDS: TRAZODONE 50 MG TABLET FT SCH (21:10)
[2020-12-19] MEDS: ATORVASTATIN 80 MG TAB FT SCH (21:10)
[2020-12-19] MEDS: ASPIRIN EC 81 MG TAB PO SCH (21:11)
[2020-12-19] MEDS: DOXAZOSIN 2 MG TAB FT SCH (21:11)
[2020-12-20] MEDS: IPRATROPIUM BROM 0.5MG/2.5ML NEB SCH ×4 (01:10→19:45)
[2020-12-20] MEDS: ALBUTEROL 2.5 MG/3 ML NEB SOL NEB SCH ×4 (01:10→19:45)
[2020-12-20 07:10] LABS: Absolute Lymphocytes (CBC) 1.3 K/uL (0.7-4.9); Basophils % 0.9 % (0-1.3); Hematocrit 30.4 % (39.6-49.0); Lymphocytes % 21.3 % (15.3-44.8); RBC Red Blood Cell Count 3.85 M/uL (4.33-5.43)
[2020-12-20 07:18] LABS: Magnesium 2.8 mg/dL (1.8-2.4); Potassium 4.6 mmol/L (3.5-5.1)
[2020-12-20] MEDS: INSULIN -REGULAR HUMAN 50 UNIT/0.5 ML ML SQ SCH ×4 (07:30→22:10)
[2020-12-20] MEDS: FUROSEMIDE 20 MG TABLET PO SCH ×2 (08:11→16:19)
[2020-12-20] MEDS: ESCITALOPRAM 20 MG TAB FT SCH (08:11)
[2020-12-20] MEDS: ENOXAPARIN 40 MG/0.4 ML SQ SCH (08:12)
[2020-12-20] MEDS: CLOPIDOGREL 75 MG TABLET FT SCH (08:12)
[2020-12-20] MEDS: FERROUS SULFATE 325 MG TAB PO SCH ×2 (08:12→22:08)
[2020-12-20] MEDS: GABAPENTIN 300 MG CAP FT SCH ×2 (08:12→22:09)
[2020-12-20] MEDS: ASCORBIC ACID 500 MG TABLET FT SCH ×3 (08:12→22:07)
[2020-12-20] MEDS: GLUCERNA 1.5 CAL 1,000 ML BOT FT SCH ×4 (08:14→22:10)
[2020-12-20] MEDS: SUCRALFATE 1 GM/10 ML FT SCH ×4 (08:14→21:00)
[2020-12-20] MEDS: CALCITONIN NASAL SPRAY 200 IU/DOSE NAS SCH (08:15)
[2020-12-20] MEDS: guaiFENesin 100 MG/5 ML UCUP PO PRN ×2 (08:18→17:10)
--- NOTE | 2020-12-20 14:51 | P.PN ---
Subjective Date of Service: 12/20/20 Primary Care Provider: Dr. Lopez Chief Complaint: Acute CHF exacerbation Subjective: Improving, Doing well Physical Examination - Vital Signs Temperature: 97.7 F Blood Pressure: 159/71 Pulse: 78 Respirations: 18 Pulse Ox (%): 96 - Studies Microbiology Data (last 24 hrs): 12/15/20 14:15 Blood - Blood Aerobic Blood Culture - Final No growth in 5 days. 12/15/20 14:15 Blood - Blood Anaerobic Blood Culture - Final No growth in 5 days. 12/15/20 14:30 Blood - Blood Aerobic Blood Culture - Final No growth in 5 days. 12/15/20 14:30 Blood - Blood Anaerobic Blood Culture - Final No growth in 5 days. Medications List Reviewed: Yes Assessment & Plan Discharge Plan: Other (Inpatient rehab) Plan to discharge in: 48 Hours Physician Review Additional Text: Physical exam: General: Patient alert, cooperative. Heart: Regular rate and rhythm Lungs: Clear to auscultation Abdomen: Peg tube in place Extremities: Good range of motion. No focal deficits. No edema to the lower extremity. Mentation: Patient seems appropriate. Impression: Acute on chronic combined systolic/diastolic CHF Depression Diabetes mellitus type 2 Hypertension History of PEG tube Diabetic neuropathy Hyperlipidemia Anemia of chronic disease with iron deficiency Chronic Holcomb catheter Plan: Acute on chronic combined systolic/diastolic CHF: Echo shows no significant abnormalities. Continue with fluid restriction. Continue with Lasix. Continue to monitor the weight closely. Continue with physical therapy. Continue recommendations for inpatient rehab. Physical therapy recommended inpatient rehab. Case discussed with social human services assistants to help with inpatient rehab approval. Okay to discharge to inpatient rehab once approved. Depression: Continue with his medication-Lexapro, trazodone Diabetes mellitus type 2: Accu-Cheks in place. Continue sliding scale. Hypertension: Medications have been adjusted. Continue Cardura. Norvasc and metoprolol have been discontinued. Will monitor blood pressure closely History of PEG tube: Continue with feeding-Glucerna. Diabetic neuropathy: Continue gabapentin Hyperlipidemia: Continue Lipitor Anemia of chronic disease with iron deficiency: Continue with iron supplementation. Chronic Holcomb catheter: We will discuss with urology DVT prophylaxis: Lovenox Code status: Patient is full code Advanced care planning-30 min: Continue with physical therapy. Await inpatient rehab approval. Time Spent Managing Pts Care (In Minutes): 55
[2020-12-20] MEDS: ASPIRIN EC 81 MG TAB PO SCH (22:07)
[2020-12-20] MEDS: TRAZODONE 50 MG TABLET FT SCH (22:07)
[2020-12-20] MEDS: ATORVASTATIN 80 MG TAB FT SCH (22:08)
[2020-12-20] MEDS: DOXAZOSIN 2 MG TAB FT SCH (22:08)
[2020-12-21] MEDS: HYDRALAZINE HCL 20 MG/ML VIAL IV PRN ×2 (01:50→16:42)
[2020-12-21] MEDS: ALBUTEROL 2.5 MG/3 ML NEB SOL NEB SCH ×3 (02:15→13:28)
[2020-12-21] MEDS: IPRATROPIUM BROM 0.5MG/2.5ML NEB SCH ×3 (02:15→13:28)
[2020-12-21] MEDS: INSULIN -REGULAR HUMAN 50 UNIT/0.5 ML ML SQ SCH ×3 (07:30→16:30)
[2020-12-21] MEDS: SUCRALFATE 1 GM/10 ML FT SCH ×3 (07:30→16:30)
[2020-12-21] MEDS: guaiFENesin 100 MG/5 ML UCUP PO PRN (08:11)
[2020-12-21] MEDS: FERROUS SULFATE 325 MG TAB PO SCH (08:12)
[2020-12-21] MEDS: FUROSEMIDE 20 MG TABLET PO SCH (08:12)
[2020-12-21] MEDS: GABAPENTIN 300 MG CAP FT SCH (08:12)
[2020-12-21] MEDS: ESCITALOPRAM 20 MG TAB FT SCH (08:15)
[2020-12-21] MEDS: CLOPIDOGREL 75 MG TABLET FT SCH (08:15)
[2020-12-21] MEDS: ASCORBIC ACID 500 MG TABLET FT SCH ×2 (08:16→14:00)
[2020-12-21] MEDS: GLUCERNA 1.5 CAL 1,000 ML BOT FT SCH ×2 (08:18→13:00)
[2020-12-21] MEDS: ENOXAPARIN 40 MG/0.4 ML SQ SCH (08:19)
[2020-12-21] MEDS: CALCITONIN NASAL SPRAY 200 IU/DOSE NAS SCH (08:19)
--- NOTE | 2020-12-21 09:13 | P.PN ---
Subjective Date of Service: 12/21/20 Primary Care Provider: Dr. Lopez Chief Complaint: Acute CHF exacerbation Subjective: Other (Patient working with physical therapy. Patient had some difficulty with ambulation yesterday. No significant shortness of breath noted.) Physical Examination - Vital Signs Temperature: 98.1 F Blood Pressure: 143/65 Pulse: 75 Respirations: 16 Pulse Ox (%): 95 - Studies Microbiology Data (last 24 hrs): 12/15/20 14:15 Blood - Blood Aerobic Blood Culture - Final No growth in 5 days. 12/15/20 14:15 Blood - Blood Anaerobic Blood Culture - Final No growth in 5 days. 12/15/20 14:30 Blood - Blood Aerobic Blood Culture - Final No growth in 5 days. 12/15/20 14:30 Blood - Blood Anaerobic Blood Culture - Final No growth in 5 days. Medications List Reviewed: Yes Assessment & Plan Discharge Plan: Other (Skilled placement versus home with home health and outpatient physical therapy) Plan to discharge in: 24 Hours Physician Review Additional Text: Physical exam: General: Patient alert, cooperative. Heart: Regular rate and rhythm Lungs: Clear to auscultation Abdomen: Peg tube in place Extremities: Good range of motion. No focal deficits. No edema to the lower extremity. Mentation: Patient seems appropriate. Impression: Acute on chronic combined systolic/diastolic CHF Depression Diabetes mellitus type 2 Hypertension History of PEG tube Diabetic neuropathy Hyperlipidemia Anemia of chronic disease with iron deficiency Chronic Holcomb catheter Plan: Acute on chronic combined systolic/diastolic CHF: Echo shows no significant abnormalities. Continue with fluid restriction. Continue with Lasix. Patient medically stable. Spoke with medical equipment technician for [id number] on inpatient rehab placement. Patient does not meet criteria for inpatient rehab as recommended by medical equipment technician. director quality assurance recommends skilled placement versus home with home health/outpatient physical therapy. Will discuss with patient. Options will include skilled placement versus home health. Continue physical therapy at this time. Await decision by patient and family. Depression: Continue with his medication-Lexapro, trazodone Diabetes mellitus type 2: Accu-Cheks in place. Continue sliding scale. Hypertension: Medications have been adjusted. Continue Cardura. Norvasc and metoprolol have been discontinued. Will monitor blood pressure closely History of PEG tube: Continue with feeding-Glucerna. Diabetic neuropathy: Continue gabapentin Hyperlipidemia: Continue Lipitor Anemia of chronic disease with iron deficiency: Continue with iron supplementation. Chronic Holcomb catheter: We will discuss with urology DVT prophylaxis: Lovenox Code status: Patient is full code Advanced care planning-30 min: Patient does not meet criteria for inpatient rehab. Patient denied by insurance. Recommendation is for skilled placement or home with home health. Will discuss with family. We will also have social work also discussed. Time Spent Managing Pts Care (In Minutes): 55
[2020-12-21] MEDS: ACETAMINOPHEN 500 MG TAB PO PRN (12:25)
[2020-12-21 15:05] VITALS: O2SAT 97
--- NOTE | 2020-12-21 15:06 | P.DS ---
Admission Date: 12/15/20 Discharge Date: 12/21/20 Primary Care Provider: Dr. Lopez Disposition: DC HOME/HOME HEALTH CARE Discharge Condition: GOOD Reason for Admission: Acute CHF exacerbation Consultations: Cardiology-Dr. Schafer Procedures: COVID: Negative Sputum culture: Negative Blood culture: Negative ECHO: MEASUREMENTS (cm) DIASTOLIC (NORMALS) SYSTOLIC (NORMALS) IVSd 1.1 (0.6-1.2) LA Diam 4.3 (1.9-4.0) LVEF 55-60% LVIDd 4.1 (3.5-5.7) LVIDs 3.4 (2.0-3.5) %FS 16% LVPWd 1.4 (0.6-1.2) Ao Diam 3.6 (2.0-3.7) 2 DIMENSIONAL ASSESSMENT: RIGHT ATRIUM: NORMAL LEFT ATRIUM: NORMAL RIGHT VENTRICLE: NORMAL LEFT VENTRICLE: NORMLA TRICUSPID VALVE: MITRAL VALVE: PULMONIC VALVE: NORMAL AORTIC VALVE: PERICARDIAL EFFUSION: TRACE AORTIC ROOT: NORMAL LEFT VENTRICULAR WALL MOTION: NORMAL DOPPLER/COLOR FLOW: SEE BELOW COMMENTS: NORMAL LEFT VENTRICULAR EJECTION FRACTION 55-60%. MILD MITRAL, TRICUSPID AND AORTIC REGURGITATION. CXR: CLINICAL HISTORY: Shortness of breath COMPARISON: December 18, 2020 FINDINGS: Overall no significant change in the bilateral pulmonary opacities and cardiomegaly. Heart remains enlarged. 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 Chest x-ray showed pulmonary edema. Patient admitted for further evaluation of acute on chronic CHF. Hospital Course: Patient presented with dyspnea secondary to acute on chronic diastolic CHF. Patient was admitted for treatment. Patient received IV Lasix with improvement. Patient seen and evaluated by cardiology as well. Echocardiogram showed normal ejection fraction. Compliance with fluid restriction was addressed in detail. Patient was evaluated for inpatient rehab. The patient was denied inpatient rehab. Patient did not want to go to a skilled facility. Therefore patient will be discharged home with home health and physical therapy to be arranged. At discharge patient will continue with the 1500 cc/day fluid restriction and low-salt diet. Patient will need to monitor his weight daily. If his weight increases by more than 5 pounds adjustments in his medication may be required. At discharge his Lasix has been decreased to Lasix 20 mg 1 pill twice daily. If with increasing shortness of breath or edema to the lower extremity his PCP may need to increase his medication to 40 mg 1 pill twice daily. This will need to be done with the help of his PCP. Education on CHF, fluid restriction provided. At discharge home health and physical therapy will be arranged. Recommend follow-up with cardiology in 1 to 2 weeks to follow-up hospitalization. Recommend follow-up with PCP in 1 week to follow-up his hospitalization. Patient with diabetes mellitus type 2. This has remained stable. Patient will continue with his sliding scale at home as directed. Recommend to maintain blood sugar less than 140 fasting and less than 200 after meals. Further adjustment can be done by his PCP. Patient with hypertension. Overall stable. At discharge patient will continue with Norvasc 5 mg daily. Recommend to maintain blood pressure less than 130/80. Further adjustment may be required. This can be done with the help of his PCP. Patient with depression. At discharge patient may continue with his current medication of Lexapro 20 mg daily. Patient also takes trazodone 100 mg at bedtime. Patient with hyperlipidemia. At discharge patient will continue with Lipitor 80 mg daily. Patient with diabetic neuropathy. At discharge patient will continue with neha pentin 300 mg twice daily. Patient also takes tramadol 50 mg daily as needed for pain. Further adjustment in medication can be done by his PCP. Patient with anemia of chronic disease with iron deficiency. At discharge patient will continue with iron 325 mg 3 times a day. Recommend to recheck labCBC in 2 to 4 weeks to monitor his progress. Patient with history of PEG tube. At discharge patient will continue with PEG tube feedsGlucerna 1.5, 360 mL 4 times a day. Arrangements for feeding will be arranged prior to discharge. Aspiration precaution in place. Patient with BPH. Patient also with chronic Holcomb catheter with urinary retention. At discharge patient will continue with Cardura 2 mg 1 pill daily. Recommend follow-up with urology as an outpatient to further address and mo nitor. Recommend to replace Holcomb catheter every month. Follow-up with urology to consider removal of catheter in the future if indicated. Patient with GERD. At discharge patient will continue with sucralfate prior to every meal. Patient with suspected subclinical hypothyroidism. TSH slightly elevated with normal free T4. Recommend to recheck TSH and free T4 in 4 to 6 weeks. If this worsens or significantly abnormal PCP will consider medication. No medication needed at this time. Patient with history of CVA, CAD and prior CABG. EKG unremarkable. No cardiac enzymes elevation. At discharge patient will continue with aspirin 81 mg daily, Plavix 25 mg daily. Patient may follow-up with cardiology as an outpatient to further monitor and address. No evidence of pneumonia. Sputum culture negative. Covid test negative. Blood culture test negative. Vital Signs/Physical Exam: Temp Pulse Resp BP Pulse Ox 98.4 F 58 20 113/61 94 12/21/20 12:00 12/21/20 13:38 12/21/20 13:38 12/21/20 13:38 12/21/20 13:38 General: Alert, In no apparent distress, Oriented x3, Cooperative HEENT: Atraumatic Neck: Supple Respiratory: Clear to auscultation bilaterally, Normal air movement Cardiovascular: Normal pulses, Regular rate/rhythm, Other (PEG tube in place) Gastrointestinal: No tenderness, No masses, No rebound, No guarding Musculoskeletal: No tenderness, No warmth Neurological: Normal speech, Normal strength at 5/5 x4 extr, Normal tone, Normal affect Laboratory Data at Discharge: WBC 5.90 K/uL (4.3-10.9) 12/20/20 06:47 Hgb 9.8 g/dL (13.6-17.9) L 12/20/20 06:47 Hct 30.4 % (39.6-49.0) L 12/20/20 06:47 Plt Count 132 K/uL (152-406) L 12/20/20 06:47 PT 13.2 SECONDS (9.2-12.8) H 12/15/20 14:15 INR 1.11 12/15/20 14:15 Sodium 138 mmol/L (136-145) 12/20/20 06:47 Potassium 4.6 mmol/L (3.5-5.1) 12/20/20 06:47 BUN 76 mg/dL (7-18) H 12/20/20 06:47 Creatinine 1.16 mg/dL (0.55-1.3) 12/20/20 06:47 Glucose 109 mg/dL (74-106) H 12/20/20 06:47 Phosphorus 3.3 mg/dL (2.5-4.9) 12/17/20 07:09 Magnesium 2.8 mg/dL (1.8-2.4) H 12/20/20 06:47 Total Bilirubin 0.2 mg/dL (0.2-1.0) 12/19/20 03:27 AST 63 U/L (15-37) H 12/19/20 03:27 ALT 98 U/L (12-78) H 12/19/20 03:27 Alkaline Phosphatase 85 U/L (45-117) 12/19/20 03:27 Troponin I 0.03 ng/mL (0.0-0.045) 12/18/20 05:04 Home Medications: Aspirin [Adult Aspirin Regimen] 81 mg FT BEDTIME 06/04/20 Atorvastatin Calcium [Lipitor] 80 mg FT BEDTIME 06/04/20 Amlodipine [Norvasc*] 5 mg FT DAILY 07/16/20 Clopidogrel Bisulfate [Plavix*] 75 mg FT DAILY 07/16/20 Escitalopram [Lexapro*] 20 mg FT DAILY 07/16/20 Gabapentin 300 mg FT BID 07/16/20 Ferrous Sulfate [Ferrous Sulfate*] 325 mg FT TID 12/02/20 Doxazosin [Cardura*] 2 mg FT BEDTIME 30 Days #30 tab 12/08/20 Glucerna 1.5 Higinio 360 ml FT QID #10 bot 12/08/20 Insulin Lispro [Admelog] See Protocol SQ SEECOM #1 vial 12/08/20 Acetaminophen [Acetaminophen Extra Strength] 1 tab FT DAILY PRN 12/16/20 Ascorbic Acid [Vitamin C] 1,000 mg FT TID 12/16/20 Calcitonin [Miacalcin Nasal Ehrenberg*] 1 spray IN DAILY 12/16/20 Ondansetron HCl [Zofran] 1 tab FT Q8H PRN 12/16/20 Promethazine HCl 1 tab FT Q6H PRN 12/16/20 Sucralfate [Carafate] 1 ml FT ACHS 12/16/20 Tramadol HCl [Ultram] 50 mg FT DAILY PRN 12/16/20 Trazodone HCl 1 tab FT BEDTIME 12/16/20 Furosemide [Lasix*] 20 mg PO BIDL #60 tab 12/21/20 New Medications: Furosemide [Lasix*] 20 mg PO BIDL #60 tab Physician Discharge Instructions: Patient presented with dyspnea secondary to acute on chronic diastolic CHF. Patient was admitted for treatment. Patient received IV Lasix with improvement. Patient seen and evaluated by cardiology as well. Echocardiogram showed normal ejection fraction. Compliance with fluid restriction was addressed in detail. Patient was evaluated for inpatient rehab. The patient was denied inpatient rehab. Patient did not want to go to a skilled facility. Therefore p atient will be discharged home with home health and physical therapy to be arranged. At discharge patient will continue with the 1500 cc/day fluid restriction and low-salt diet. Patient will need to monitor his weight daily. If his weight increases by more than 5 pounds adjustments in his medication may be required. At discharge his Lasix has been decreased to Lasix 20 mg 1 pill twice daily. If with increasing shortness of breath or edema to the lower extremity his PCP may need to increase his medication to 40 mg 1 pill twice daily. This will need to be done with the help of his PCP. Education on CHF, fluid restriction provided. At discharge home health and physical therapy will be arranged. Recommend follow-up with cardiology in 1 to 2 weeks to follow-up hospitalization. Recommend follow-up with PCP in 1 week to follow-up his hospitalization. Patient with diabetes mellitus type 2. This has remained stable. Patient will continue with his sliding scale at home as directed. Recommend to maintain blood sugar less than 140 fasting and less than 200 after meals. Further adjustment can be done by his PCP. Patient with hypertension. Overall stable. At discharge patient will continue with Norvasc 5 mg daily. Recommend to maintain blood pressure less than 130/80. Further adjustment may be required. This can be done with the help of his PCP. Patient with depression. At discharge patient may continue with his current medication of Lexapro 20 mg daily. Patient also takes trazodone 100 mg at bedtime. Patient with hyperlipidemia. At discharge patient will continue with Lipitor 80 mg daily. Patient with diabetic neuropathy. At discharge patient will continue with gabapentin 300 mg twice daily. Patient also takes tramadol 50 mg daily as needed for pain. Further adjustment in medication can be done by his PCP. Patient with anemia of chronic disease with iron deficiency. At discharge patient will continue with iron 325 mg 3 times a day. Recommend to recheck labCBC in 2 to 4 weeks to monitor his progress. Patient with history of PEG tube. At discharge patient will continue with PEG tube feedsGlucerna 1.5, 360 mL 4 times a day. Arrangements for feeding will be arranged prior to discharge. Aspiration precaution in place. Patient with BPH. Patient also with chronic Holcomb catheter with urinary retention. At discharge patient will continue with Cardura 2 mg 1 pill daily. Recommend follow-up with urology as an outpatient to further address and monitor. Recommend to replace Holcomb catheter every month. Follow-up with urology to consider removal of catheter in the future if indicated. Patient with GERD. At discharge patient will continue with sucralfate prior to every meal. Patient with suspected subclinical hypothyroidism. TSH slightly elevated with normal free T4. Recommend to recheck TSH and free T4 in 4 to 6 weeks. If this worsens or significantly abnormal PCP will consider medication. No medication needed at this time. Patient with history of CVA, CAD and prior CABG. EKG unremarkable. No cardiac enzymes elevation. At discharge patient will continue with aspirin 81 mg daily, Plavix 25 mg daily. Patient may follow-up with cardiology as an outpatient to further monitor and address. No evidence of pneumonia. Sputum culture negative. Covid test negative. Blood culture test negative. Diet: Glucerna Activity: Fall precautions Followup: Aidan Rios MD [Primary Care Provider] - Time spent managing pt's care (in minutes): 55
[2020-12-21 20:19] VITALS: BP 160/67; TEMP 98
== END 2020-12-21 20:40 | disposition home health service (06) | DRG 291 ==
LOC: ER 13:38 → ERHOLD 17:11 → 4TH 12-16 15:46
PROVIDERS: ADMIT Hospitalist; ATTEND Hospitalist
PROC: 30233N1 Transfusion of Nonautologous Red Blood Cells into Peripheral Vein, Percutaneous Approach (ICD-10-PCS; principal; 2020-12-16)
DX: I11.0 Hypertensive heart disease with heart failure (principal); E43 Unspecified severe protein-calorie malnutrition; Z68.1 Body mass index [BMI] 19.9 or less, adult; I50.33 Acute on chronic diastolic (congestive) heart failure; E11.40 Type 2 diabetes mellitus with diabetic neuropathy, unspecified; F32.9 Major depressive disorder, single episode, unspecified; K21.9 Gastro-esophageal reflux disease without esophagitis; E78.5 Hyperlipidemia, unspecified; D50.9 Iron deficiency anemia, unspecified; E02 Subclinical iodine-deficiency hypothyroidism; N40.1 Benign prostatic hyperplasia with lower urinary tract symptoms; R33.8 Other retention of urine; I25.10 Atherosclerotic heart disease of native coronary artery without angina pectoris; Z95.1 Presence of aortocoronary bypass graft; Z86.73 Personal history of transient ischemic attack (TIA), and cerebral infarction without residual deficits; Z20.822 Contact with and (suspected) exposure to COVID-19; Z93.1 Gastrostomy status; Z96.0 Presence of urogenital implants
CPT/HCPCS: 0240U; 36415; 36430; 71045; 80048; 80053; 80076; 82533; 82607; 82746; 82947; 83540; 83605; 83735; 83880; 84100; 84145; 84439; 84443; 84484; 85025; 85044; 85610; 86850; 86900; 86901; 87040; 87070; 87205; 93005; 93306; 96372; 96374; 97110; 97112; 97161; 97530; 99285; J0360; J0696; J1650; J1940; J7050; P9016

== ENCOUNTER 2021-01-14 11:06 | Emergency (ER) | payer OTHER ==
--- OUTSIDE RECORDS SUMMARY | 2021-01-14 11:14 | XMS REPORT | Continuity of Care Document ---
:1955 Author Organization [facility] t Address [address] [place] [address] Care Team Providers Name Role Phone Charly JONES Attending Clinician Misael MITCHELL, W Attending Clinician Unavailable Dionna ZAFAR, A Attending Clinician Unavailable Doctor Unassigned, Name Attending Clinician Unavailable Adrian ZAFAR Attending Clinician Laurie JONES, Scott [...] Burn Burn Problem Active [facility] [place] [facility] Allergies, Adverse Reactions, Alerts Allergy Allergy Status Severity Reaction(s) Onset Inactive Treating Comm ents Source Name Type Date Date Clinician Nicolextshilpa Propensi Active Hallucinatio [facility] TB12 ty to ns ity of adverse [place] reaction Physici s to ans drug (finding ) Family History Family Member Diagnosis Comments Start Date Stop Date Source Mother Family history of [facility] [place] coronary artery Physician s disease Mother Family history of [facility] [place] Castro's disease Physici ans Mother Family history of [facility] [place] diabetes mellitus Physici ans Mother Family history of [facility] [place] hypertension Physicians Mother Family history [facility] [place] malignant neoplasm Physic ians Father Family history of [facility] [place] diabetes mellitus Physici ans Father Family history of [facility] [place] hypertension Physicians Father Family history of [facility] [place] coronary artery Physician s disease Sister Family history of [facility] [place] malignant neoplasm Physic ians Brother Family history of [facility] [place] pancreatic cancer Physici ans Social History Smoking Status Start Date Stop Date Source Ex-smoker (finding) [place] [facility] Medications Ordered Filled Start Stop Current [...] PATCH ity of Transdermal Transdermal 00:00: DAILY [place] Patch 24 Patch 24 00 DIRECTED. Ph [...] ity of Sublingual Sublingual 00:00: UNDER THE [place] Tablet Tablet 00 TONGUE Physici Sublingual Sublingual EVERY 5 ans MINUTES FOR UP TO 3 DOSES NEEDED FOR CHEST PAIN.CALL 911 IF PAIN PERSISTS. HumuLIN R HumuLIN R Yes M.A. inject 12 Univers 100 UNIT/ML 100 UNIT/ML 3-05 units ity of Injection Injection 00:00: under the [place] Solution Solution 00 skin 2 Physi ci times ans daily before breakfast and dinner. Vital Signs Vital Name Observation Time Observation Value Comments Source Systolic blood 2019-09-29 155 mm[Hg] Location: [facility] 16:23:00 Position: [place] [facility] Sitting Diastolic blood 2019-09-29 68 mm[Hg] Location: [facility] 16:23:00 Position: [place] [facility] Sitting Body height 2019-09-29 72 [in_us] [facility] :23:00 [place] [facility] Weight 2019-09-29 163 [lb_av] [facility] :23:00 [place] [facility] Body mass index 2019-09-29 22.11 kg/m2 [place] f (BMI) [Ratio] 16:23:00 [place] [facility] Body temperature 2019-09-29 97.9 [degF] Method: Oral [facility] 16:23:00 [place] [facility] Heart Rate 2019-09-29 75 /min [facility] :23:00 [place] [facility] Procedures Procedure Date / Time Performing Source Performed Clinician [B] CMP 2019-09-28 [facility] 00:00:00 [place] [facility] [B] CBC 2019-09-28 [facility] 00:00:00 [place] [facility] History of Cyst excision [facility] it[facility] History of Debridement Universit y [facility] History of Hand Surgery Universi ty [facility] History of Knee arthroscopy Univ ersity [facility] History of University of Esophagogastroduodenoscopy [place] [facility] History of Colonoscopy [facility] History of Surgical removal of U niversity of foreign body [place] [facility] History of CABG [facility] Encounters Start End Encounter Admission Attending Care Care Encounter Source Date/Time Date/Time Type Type Clinicians Facility Department ID 2020-12-27 2020-12-27 Refill Charly MNMARLEEN [id number] 00:00:00 00:00:00 Derrick PRIMARY [id number] CARE [id number] PAVILLION [id number] 2020-11-30 2020-11-30 Patient Jatin Douglas [id number] 00:00:00 00:00:00 Outreach Hugh Mcnally [id number] [place] [id number] 2020-11-22 2020-11-22 Nurse ALPHONSE Villareal [id number] 00:00:00 00:00:00 Triage Liane Ulloa [place] [id number] [facility] [id number] 2020-11-16 2020-11-16 Orders Doctor ALPHONSE [id number] 00:00:00 00:00:00 Only Unassigned, [facility] [id number] [facility] [id number] 2020-11-11 2020-11-11 Telephone Charly [facility] [id number] 00:00:00 00:00:00 Derrick PRIMARY [id number] CARE [id number] PAVILLION [id number] 2020-11-10 2020-11-10 Transition Jatin Campbell [id number] 00:00:00 00:00:00 of Care Nathalia Mcnally [id number] [place] [id number] 2020-11-10 2020-11-10 Mary Sullivan [facility] [id number] 00:00:00 00:00:00 Haris PRIMARY [id number] Scott CARE [id number] JAMIE [id number] 2019-09-29 2019-09-29 Appointmen ELMO [facility] [id number] 15:00:00 15:00:00 t; IGOR BORREGO M.D. [facility] [place] COSTA M.D. Failure - [facility]ic i [place] ans Results This patient has no known results.
[2021-01-14] MEDS ORDERED: CEFTRIAXONE/SWI 1gm 1 GM/10 ML SYR ONE (11:45)
[2021-01-14 12:05] LABS: Absolute Lymphocytes (CBC) 0.8 K/uL (0.7-4.9); Basophils % 0.7 % (0-1.3); Hematocrit 23.3 % (39.6-49.0); Lymphocytes % 9.6 % (15.3-44.8); MPV 11.5 fL (7.6-11.3)
[2021-01-14] MEDS ORDERED: LIDOCAINE VISCOUS 2% SOLN 15 ML UDC ONE (12:06)
[2021-01-14 12:13] LABS: Potassium 4.9 mmol/L (3.5-5.1)
[2021-01-14 12:32] LABS: Urine Blood 1+ (Negative); Urine Glucose Negative (Negative); Urine Protein 3+ (Negative)
[2021-01-14 12:51] LABS: Anisocytosis 1+; Basophilic Stippling 1+; Blood Morphology Comment NOTED (NOT SEEN); Burr Cells 1+; Platelet Estimate DECR; White Blood Cell Scan OK (OK)
--- NOTE | 2021-01-14 14:11 | EDPHYS ---
Physician Documentation [facility] Name: Mumtaz Anderson Age: 65 yrs Sex: Male : 1955 Arrival Date: 01/14/2021 Time: 11:09 Bed 16 Private MD: ED Physician Jax Lopes HPI: 01/14 15:21 This 65 yrs old Male presents to ER via EMS with complaints of Urinary kdr Problem, Altered Mental Status. 15:21 The patient presents with confusion, disorientation. Onset: The symptoms/episode kdr began/occurred yesterday. Possible causes: UTI. Associated signs and symptoms: Pertinent positives: agitation, confusion, weakness. Current symptoms: In the emergency department the patient's symptoms have improved, moderately. Patient's baseline: Neuro: alert and fully oriented, Motor: bed bound. 15:59 The patient has experienced similar episodes in the past, a few times. kdr Historical: - Allergies: 11:13 Latex, Natural Rubber; sv 11:13 Nexium D; sv 11:13 spironolactone; sv - Home Meds: 11:13 Norvasc Oral [Active]; aspirin 81 mg Oral chew [Active]; atorvastatin 80 mg Oral tab 1 sv tab once daily [Active]; calcitrol [Active]; Carafate Oral [Active]; clopidogrel 75 mg Oral tab 1 tab once daily [Active]; doxazosin oral [Active]; ferrous sulfate 325 mg (65 mg iron) Oral tab three times a day [Active]; Lasix 40 mg Oral tab 1 tab once daily [Active]; gabapentin oral [Active]; Lantus Sub-Q [Active]; metformin 500 mg Oral tab 1 tab 2 times per day [Active]; Metoprolol Tartrate Oral [Active]; Nystatin Topical [Active]; Zofran Oral [Active]; Trazodone Oral [Active]; tylenol [Active]; - PMHx: 11:13 Anemia; Parkinsons; Myocardial infarction; Diabetes - IDDM; Hypertension; COPD; CHF; sv CAD; Seizures; Pneumonia; - PSHx: 11:13 Coronary artery bypass graft; Hip; sv - Immunization history:: Client reports having NOT received the Covid vaccine. - Social history:: Smoking status: Patient denies any tobacco usage or history of. ROS: 16:09 Constitutional: Negative for fever, chills, and weight loss, Eyes: Negative for injury, kdr pain, redness, and discharge, ENT: Negative for injury, pain, and discharge, Neck: Negative for injury, pain, and swelling, Cardiovascular: Negative for chest pain, palpitations, and edema, Respiratory: Negative for shortness of breath, cough, wheezing, and pleuritic chest pain, Abdomen/GI: Negative for abdominal pain, nausea, vomiting, diarrhea, and constipation, Back: Negative for injury and pain, : Negative for injury, bleeding, discharge, and swelling, MS/Extremity: Negative for injury and deformity, Skin: Negative for injury, rash, and discoloration, Psych: Negative for depression, anxiety, suicide ideation, homicidal ideation, and hallucinations, Allergy/Immunology: Negative for hives, rash, and allergies, Endocrine: Negative for neck swelling, polydipsia, polyuria, polyphagia, and marked weight changes, Hematologic/Lymphatic: Negative for swollen nodes, abnormal bleeding, and unusual bruising. 16:09 Neuro: Positive for altered mental status, weakness, states that he was delusional yesterday but today he is A\T\O x3. Exam: 16:09 Constitutional: This is a well developed, well nourished patient who is awake, alert, kdr and in no acute distress. Head/Face: Normocephalic, atraumatic. Eyes: Pupils equal round and reactive to light, extra-ocular motions intact. Lids and lashes normal. Conjunctiva and sclera are non-icteric and not injected. Cornea within normal limits. Periorbital areas with no swelling, redness, or edema. Neck: Trachea midline, no thyromegaly or masses palpated, and no cervical lymphadenopathy. Supple, full range of motion without nuchal rigidity, or vertebral point tenderness. No Meningismus. Chest/axilla: Normal chest wall appearance and motion. Nontender with no deformity. No lesions are appreciated. Cardiovascular: Regular rate and rhythm with a normal S1 and S2. No gallops, murmurs, or rubs. Normal PMI, no JVD. No pulse deficits. Respiratory: Lungs have equal breath sounds bilaterally, clear to auscultation and percussion. No rales, rhonchi or wheezes noted. No increased work of breathing, no retractions or nasal flaring. Abdomen/GI: Soft, non-tender, with normal bowel sounds. No distension or tympany. No guarding or rebound. No evidence of tenderness throughout. Back: No spinal tenderness. No costovertebral tenderness. Full range of motion. Skin: Warm, dry with normal turgor. Normal color with no rashes, no lesions, and no evidence of cellulitis. MS/ Extremity: Pulses equal, no cyanosis. Neurovascular intact. Full, normal range of motion. Neuro: Awake and alert, GCS 15, oriented to person, place, time, and situation. Cranial nerves II-XII grossly intact. Motor strength 5/5 in all extremities. Sensory grossly intact. Cerebellar exam normal. Normal gait. Psych: Awake, alert, with orientation to person, place and time. Behavior, mood, and affect are within normal limits. 16:09 : a hernandez is noted, to gravity drainage, urine is clear, Replaced Hernandez prior to obtaining urine sample. Vital Signs: 11:04 Weight 72.57 kg; Height 6 ft. 0 in. (182.88 cm); Pain 0/10; sv 12:45 BP 168 / 77; Pulse 52; Resp 18; Temp 97.6(O); Pulse Ox 100% on R/A; Weight 62.14 kg; mh5 Height 6 ft. 0 in. (182.88 cm); 12:45 Body Mass Index 18.58 (62.14 kg, 182.88 cm) 5 MDM: 14:10 Patient medically screened. kdr 16:16 Data reviewed: vital signs, nurses notes, lab test result(s), radiologic studies. kdr Counseling: I had a detailed discussion with the patient and/or guardian regarding: the historical points, exam findings, and any diagnostic results supporting the discharge/admit diagnosis, lab results, radiology results, the need for outpatient follow up. 01/14 11:17 Order name: CBC with Diff; Complete Time: 13:59 [facility] 01/14 11:17 Order name: Chem 7; Complete Time: 12:27 kdr 01/14 11:17 Order name: Urine Culture [facility] 01/14 12:32 Order name: Urine Dipstick-Ancillary; Complete Time: 13:59 [facility] 01/14 12:51 Order name: CBC Smear Scan; Complete Time: 13:59 [facility] 01/14 11:17 Order name: Urine Dipstick-Ancillary (obtain specimen); Complete Time: 12:34 kdr 01/14 11:17 Order name: Hernandez: Change first then obtain urine sample for testing and culture; kdr Complete Time: 11:52 Administered Medications: 12:57 Drug: Rocephin - (cefTRIAXone) 1 grams Route: IVPB; Infused Over: 30 mins; Site: left tr6 forearm; Disposition Summary: 01/14/21 14:10 Discharge Ordered Location: Home kdr Problem: new kdr Symptoms: have improved kdr Condition: Stable kdr Diagnosis - UTI/ Urinary tract infection, site not specified kdr - Altered mental status, unspecified kdr Followup: kdr - With: Private Physician - When: 2 - 3 days - Reason: If symptoms return, Further diagnostic work-up, Recheck today's complaints, Continuance of care, Re-evaluation by your physician Discharge Instructions: - Discharge Summary Sheet kdr - Confusion kdr - Urinary Tract Infection, Adult, [id number] kdr Forms: - Medication Reconciliation Form kdr - Thank You Letter kdr - Antibiotic Education kdr - Prescription Opioid Use kdr Prescriptions: - Cipro 500 mg Oral Tablet - take 1 tablet by ORAL route every 12 hours for 10 days; 20 tablet; Refills: 0, kdr Product Selection Permitted Signatures: Dispatcher [employer] Ting White RN RN Jax Lopes MD MD [facility] Brina Newberry RN RN tr6 Corrections: (The following items were deleted from the chart) 11:17 11:13 Home Meds: escitalopram oxalate 20 mg Oral tab 1 tab once daily; [facility] 11:17 11:13 Home Meds: Lactobacillus acidophilus-pectin Oral; [facility] 11:17 11:13 Home Meds: Novolin 70/30 [place] Sub-Q; [facility] 11:17 11:13 Home Meds: Toprol XL 50 mg Oral Tb24 1 tab once daily; [facility]
--- NOTE | 2021-01-14 14:11 | ER ---
Nurse's Notes [facility] Name: Mumtaz Anderson Age: 65 yrs Sex: Male : 1955 Arrival Date: 01/14/2021 Time: 11:09 Bed 16 Private MD: Diagnosis: UTI/ Urinary tract infection, site not specified;Altered mental status, unspecified Presentation: 01/14 11:04 Chief complaint: EMS states: called out by spouse. HH went to pt's house to change his sv urinary catheter and there was a strong urine odor. Saturday night spouse said pt became delusional. BP 149/67 HR-56 RR-12 97% RA 98.3. Coronavirus screen: Client denies travel out of the [place] in the last 14 days. At this time, the client does not indicate any symptoms associated with coronavirus-19. Ebola Screen: No symptoms or risks identified at this time. Risk Assessment: Do you want to hurt yourself or someone else? Patient reports no desire to harm self or others. Onset of symptoms was January 12, 2021. 11:04 Method Of Arrival: EMS: [facility] sv 11:04 Acuity: VIDAL 3 sv 12:07 Initial Sepsis Screen: Does the patient meet any 2 criteria? No. Patient's initial tr6 sepsis screen is negative. Does the patient have a suspected source of infection? No. Patient's initial sepsis screen is negative. Historical: - Allergies: 11:13 Latex, Natural Rubber; sv 11:13 Nexium D; sv 11:13 spironolactone; sv - Home Meds: 11:13 Norvasc Oral [Active]; aspirin 81 mg Oral chew [Active]; atorvastatin 80 mg Oral tab 1 sv tab once daily [Active]; calcitrol [Active]; Carafate Oral [Active]; clopidogrel 75 mg Oral tab 1 tab once daily [Active]; doxazosin oral [Active]; ferrous sulfate 325 mg (65 mg iron) Oral tab three times a day [Active]; Lasix 40 mg Oral tab 1 tab once daily [Active]; gabapentin oral [Active]; Lantus Sub-Q [Active]; metformin 500 mg Oral tab 1 tab 2 times per day [Active]; Metoprolol Tartrate Oral [Active]; Nystatin Topical [Active]; Zofran Oral [Active]; Trazodone Oral [Active]; tylenol [Active]; - PMHx: 11:13 Anemia; Parkinsons; Myocardial infarction; Diabetes - IDDM; Hypertension; COPD; CHF; sv CAD; Seizures; Pneumonia; - PSHx: 11:13 Coronary artery bypass graft; Hip; sv - Immunization history:: Client reports having NOT received the Covid vaccine. - Social history:: Smoking status: Patient denies any tobacco usage or history of. Screenin:04 Abuse screen: Denies threats or abuse. Denies injuries from another. Nutritional tr6 screening: No deficits noted. Tuberculosis screening: No symptoms or risk factors identified. Fall Risk None identified. Assessment: 12:07 General: Appears in no apparent distress. comfortable, Behavior is calm, cooperative, tr6 appropriate for age. Pain: Denies pain. Neuro: Level of Consciousness is awake, alert, obeys commands, confused, sometimes confused. Cardiovascular: No deficits noted. Respiratory: No deficits noted. GI: No deficits noted. : No deficits noted. EENT: No deficits noted. Derm: No deficits noted. 14:00 Reassessment: MD Lopes at bedside. tr6 Vital Signs: 11:04 Weight 72.57 kg; Height 6 ft. 0 in. (182.88 cm); Pain 0/10; sv 12:45 BP 168 / 77; Pulse 52; Resp 18; Temp 97.6(O); Pulse Ox 100% on R/A; Weight 62.14 kg; mh5 Height 6 ft. 0 in. (182.88 cm); 12:45 Body Mass Index 18.58 (62.14 kg, 182.88 cm) [facility] ED Course: 11:09 Patient arrived in ED. sv 11:10 Patient has correct armband on for positive identification. Bed in low position. Call [facility] light in reach. Side rails up X2. Adult w/ patient. Warm blanket given. 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 Pulse ox on. NIBP on. 11:13 Triage completed. sv 11:16 Jax Lopes MD is Attending Physician. kdr 11:16 Brina Newberry, ANDRADE is Primary Nurse. tr6 11:52 Chem 7 Sent. 5 11:52 CBC with Diff Sent. 5 11:52 Initial lab(s) drawn, by me, sent to lab. Inserted saline lock: 22 gauge in left 5 antecubital area, using aseptic technique. Blood collected. 12:04 Resting quietly. Awaiting lab results. tr6 12:04 No provider procedures requiring assistance completed. tr6 12:06 Holcomb cath removed intact, balloon deflated. tr6 12:06 Holcomb cath inserted, using sterile technique, 16 Fr., by me, by mechanical fitter, balloon tr6 inflated, to gravity drainage, urine specimen collected. other coude catheter. 12:08 Patient placed in an exam room. tr6 12:33 Urine Culture Sent. 5 12:34 Urine collected: Holcomb catheter specimen, cloudy. 5 14:58 IV discontinued, intact, bleeding controlled, No redness/swelling at site. Pressure tr6 dressing applied. Administered Medications: 12:57 Drug: Rocephin - (cefTRIAXone) 1 grams Route: IVPB; Infused Over: 30 mins; Site: left tr6 forearm; Outcome: 14:10 Discharge ordered by . kdr 14:58 Discharged to home via ambulance. tr6 14:58 Condition: stable 14:58 Discharge instructions given to patient, family, significant other, Instructed on discharge instructions, follow up and referral plans. medication usage, safety practices, Demonstrated understanding of instructions, follow-up care, medications, Prescriptions given X 1. 15:08 Patient left the ED. tr6 Signatures: Ting Mike RN RN Jax Lopes MD MD kdr Martinez, Maria [facility] Brina Newberry RN RN tr6 Corrections: (The following items were deleted from the chart) 11:17 11:13 Home Meds: escitalopram oxalate 20 mg Oral tab 1 tab once daily; [facility] 11:17 11:13 Home Meds: Lactobacillus acidophilus-pectin Oral; sv sv 11:17 11:13 Home Meds: Novolin 70/30 [place] Sub-Q; sv sv 11:17 11:13 Home Meds: Toprol XL 50 mg Oral Tb24 1 tab once daily; sv sv
[2021-01-14 15:17] VITALS: BP 168/77; TEMP 97.6; O2SAT 100
== END 2021-01-14 15:08 | disposition home or self-care (01) ==
LOC: ER 11:06
DX: N39.0 Urinary tract infection, site not specified (principal); I10 Essential (primary) hypertension; G20 Parkinson's disease; E11.9 Type 2 diabetes mellitus without complications; Z79.4 Long term (current) use of insulin; Z79.82 Long term (current) use of aspirin; Z88.8 Allergy status to other drugs, medicaments and biological substances; Z95.1 Presence of aortocoronary bypass graft; Z91.040 Latex allergy status; Z91.048 Other nonmedicinal substance allergy status
CPT/HCPCS: 87088; 85025; 87086; 80048; 36415; 87077; 87186; 81003; 51702; 96374; 99285; J0696

== ENCOUNTER 2021-02-08 11:41 | Inpatient (IN) | payer OTHER ==
--- OUTSIDE RECORDS SUMMARY | 2021-02-08 11:45 | XMS REPORT | Continuity of Care Document ---
:1955 Author Organization [facility] t Address [address] [place] [address] Care Team Providers Name Role Phone Charly JONES Attending Clinician Doctor Unassigned, Name Attending Clinician Unavailable Misael MITCHELL W Attending Clinician Unavailable Dionna ZAFAR, A Attending Clinician Unavailable Adrian ZAFAR Attending Clinician Laurie JONES, Sctot Attending Clinician ELMO Attending Clinician Unavailable Problems [...] Family history of [facility] [place] Erath's disease Physici ans Mother Family history of [...] Start Date Stop Date Source Ex-smoker (finding) [place] [facility] Physicians Medications Ordered Filled Start [...] Source Systolic blood 2019-09-29 155 mm[Hg] Location: [facility] 16:23:00 Position: [place] Physician s Sitting Diastolic blood 2019-09-29 68 mm[Hg] Location: [facility] 16:23:00 Position: [place] Physician s Sitting Body height 2019-09-29 72 [in_us] [facility] :23:00 [place] Physician s Weight 2019-09-29 163 [lb_av] [facility] :23:00 [place] [facility]ician s Body mass index 2019-09-29 22.11 kg/m2 [place] o f (BMI) [Ratio] 16:23:00 [place] [facility] ns Body temperature 2019-09-29 97.9 [degF] Method: Oral [facility] 16:23:00 [place] [facility]ician s Heart Rate 2019-09-29 75 /min [facility] :23:00 [place] [facility] s Procedures Procedure Date / Time Performing Source Performed Clinician [B] CMP 2019-09-28 [facility] 00:00:00 [place] [facility] [B] CBC 2019-09-28 [facility] 00:00:00 [place] [facility] History of Cyst excision [facility] History of Debridement [facility] History of Hand Surgery [facility] ty [facility] History of Knee arthroscopy Univ ersity [facility] History of University of Esophagogastroduodenoscopy [place] [facility] History of Colonoscopy [facility] History of Surgical removal of U [facility]iversity of foreign body [place] [facility] History of CABG [facility] Encounters Start End Encounter Admission Attending Care Care Encounter Source Date/Time Date/Time Type Type Clinicians Facility Department ID 2020-12-27 2020-12-27 Refill Charly DEMARLEEN [id number] 00:00:00 00:00:00 Derrick PRIMARY [id number] CARE [id number] [place] [id number] 2020-12-16 2020-12-16 Orders Doctor ALPHONSE [id number] 00:00:00 00:00:00 Only UnassignedHERNANDO [id number] [facility] [id number] 2020-11-30 2020-11-30 Patient Jatin Douglas [id number] 00:00:00 00:00:00 Outreach Hugh Mcnally [id number] [place] [id number] 2020-11-22 2020-11-22 Nurse ALPHONSE Villareal [id number] 00:00:00 00:00:00 Triage Liane VILLAGOMEZ [id number] [facility] [id number] 2020-11-16 2020-11-16 Orders Doctor ALPHONSE [id number] 00:00:00 00:00:00 Only UnassignedHERNANDO [id number] [place] [facility] [id number] 2020-11-11 2020-11-11 Telephone Charly RUST [id number] 00:00:00 00:00:00 Derrick PRIMARY [id number] CARE [id number] [place] [id number] 2020-11-10 2020-11-10 Transition Jatin Campbell [id number] 00:00:00 00:00:00 of Care Nathalia Mcnally [id number] [place] [id number] 2020-11-10 2020-11-10 Refill Laurie RUST [id number] 00:00:00 00:00:00 [place] PRIMARY [id number] [place] [facility] [id number] [facility] [id number] 2019-09-29 2019-09-29 Appointmen ELMO [facility] for [id number] 15:00:00 15:00:00 t; IGOR BORREGO M.D. [facility]ella COSTA M.D. Failure - Physic i [place] ans Results This patient has no known results.
--- NOTE | 2021-02-08 12:27 | RAD REPORT ---
EXAM DESCRIPTION: CT - Head Brain Wo Cont - 02/08/2021 12:14 pm CLINICAL HISTORY: MENTAL STATUS CHANGE COMPARISON: No comparisons TECHNIQUE: All CT scans are performed using dose optimization technique as appropriate and may inclu de automated exposure control or mA/KV adjustment according to patient size. FINDINGS: No intracranial hemorrhage, hydrocephalus or extra-axial fluid collection.No areas of brai n edema or evidence of midline shift. The paranasal sinuses and mastoids are clear. The calvarium is intact. IMPRESSION: No acute intracranial abnormality.
[2021-02-08 13:11] LABS: Protime INR 1.12
[2021-02-08 13:21] LABS: Absolute Lymphocytes (CBC) 0.8 K/uL (0.7-4.9); Bilirubin Direct 0.2 mg/dL (0-0.2); Bilirubin Total 0.5 mg/dL (0.2-1.0); Hematocrit 21.4 % (39.6-49.0); Lymphocytes % 11.3 % (15.3-44.8); MPV 10.1 fL (7.6-11.3); Magnesium 3.2 mg/dL (1.8-2.4); Potassium 4.3 mmol/L (3.5-5.1); Protein, Total 7.1 g/dL (6.4-8.2); RBC Red Blood Cell Count 2.88 M/uL (4.33-5.43); Troponin (Emerg Dept Use Only) 0.02 ng/mL (0.0-0.045)
--- NOTE | 2021-02-08 13:54 | RAD REPORT ---
EXAM DESCRIPTION: RAD - Chest Single View - 02/08/2021 1:31 pm CLINICAL HISTORY: ams COMPARISON: Chest Single View dated 12/19/2020; Chest Single View dated 12/17/2020; Chest Single View [place] 12/15/2020; Chest Single View dated 12/01/2020; Abdomen Pelvis W Contrast dated 12/01/2020 FINDINGS: Hazy basilar opacities including more focal type retrocardiac opacities. Part of the left hemidiaphragm is obscured. Cardiomegaly.No acute osseous abnormality. Difficult to exclude small effu sions. IMPRESSION: Mild basilar opacities may represent a combination of layering pleural effusions, atelec tasis, and/or pneumonia
[2021-02-08 14:00] LABS: Urine Blood 1+ (Negative); Urine Glucose Negative (Negative); Urine Protein 3+ (Negative); Urine pH 6.5 (5.0-7.0)
[2021-02-08 14:53] LABS: Urine Bacteria 20-50 /HPF (NONE SEEN); Urine RBC <5 /HPF (NONE SEEN); Urine Yeast MANY (NONE SEEN)
--- NOTE | 2021-02-08 15:42 | ER ---
Nurse's Notes [facility] Name[facility] Mumtaz [facility] Age: 65 yrs Sex: Male : 1955 Arrival Date: 02/08/2021 Time: 11:54 Bed 8 Private MD: Diagnosis: UTI/ Urinary tract infection, site not specified;Pneumonia, unspecified organism;Anemia in other chronic diseases classified elsewhere;Altered mental status, unspecified Presentation: 02/08 11:54 Chief complaint: EMS states: reports intermittent confusion, visual hallucinations hb x 2 days. Coronavirus screen: At this time, the client does not indicate any symptoms associated with coronavirus-19. Ebola Screen: No symptoms or risks identified at this time. Initial Sepsis Screen: Does the patient meet any 2 criteria? Altered Mental Status. No. Patient's initial sepsis screen is negative. Does the patient have a suspected source of infection? No. Patient's initial sepsis screen is negative. Risk Assessment: Do you want to hurt yourself or someone else? Patient reports no desire to harm self or others. Onset of symptoms was February 06, 2021. 11:54 Method Of Arrival: EMS: [facility] hb 11:54 Acuity: VIDAL 2 hb Historical: - Allergies: 11:55 Latex, Natural Rubber; hb 11:55 Nexium D; hb 11:55 spironolactone; hb - Home Meds: 11:55 aspirin 81 mg Oral chew [Active]; atorvastatin 80 mg Oral tab 1 tab once daily hb [Active]; calcitrol [Active]; Carafate Oral [Active]; clopidogrel 75 mg Oral tab 1 tab once daily [Active]; doxazosin Oral [Active]; escitalopram oxalate 20 mg Oral tab 1 tab once daily [Active]; ferrous sulfate 325 mg (65 mg iron) Oral tab three times a day [Active]; gabapentin Oral [Active]; Lactobacillus acidophilus-pectin Oral [Active]; Lantus Sub-Q [Active]; Lasix 40 mg Oral tab 1 tab once daily [Active]; metformin 500 mg Oral tab 1 tab 2 times per day [Active]; Metoprolol Tartrate Oral [Active]; Norvasc Oral [Active]; Novolin 70/30 [place] Sub-Q [Active]; nystatin Topical [Active]; Toprol XL 50 mg Oral Tb24 1 tab once daily [Active]; Trazodone Oral [Active]; Tylenol [Active]; Zofran Oral [Active]; - PMHx: 11:55 Anemia; CAD; CHF; COPD; Diabetes - IDDM; Hypertension; Myocardial infarction; hb Parkinsons; Pneumonia; Seizures; - PSHx: 11:55 Coronary artery bypass graft; hip; hb - Immunization history:: Adult Immunizations up to date. - Social history:: Smoking status: Patient/guardian denies using tobacco. Screenin:06 Abuse screen: Denies threats or abuse. Denies injuries from another. Nutritional hb screening: No deficits noted. Tuberculosis screening: No symptoms or risk factors identified. Fall Risk Total Walter Fall Scale indicates Low Risk Score (25-44 pts). Fall prevention measures have been instituted. Side Rails Up X 2 Frequent Obs/Assesments occuring Family Present and informed to notify staff if they need to leave bedside As available Patient and Family Educated on Fall Prevention Program and strategies. Assessment: 12:20 General: Appears comfortable, Behavior is calm, cooperative. Pain: Denies pain. Neuro: aa5 Level of Consciousness is awake, obeys commands, confused, Oriented to person, place, situation, Judo Instructor are weak bilaterally Moves all extremities. Speech is normal, Facial symmetry appears normal, Pt's reports intermittent confusion. . Cardiovascular: Heart tones S1 S2 present Pt's states "he was complaining of chest discomfort a few days ago". Rhythm is regular. Respiratory: Airway is patent Respiratory effort is even, unlabored, Respiratory pattern is regular, symmetrical, Breath sounds are clear bilaterally. GI: Abdomen is flat, PEG tube in place, Site clean. Abd is soft and non tender X 4 quads. : Holcomb in place to gravity drainage Brief noted. EENT: No signs and/or symptoms were reported regarding the EENT system. Derm: Skin is pink, warm \\T\\ dry. Decubitus located on right hip(s) is stage I. Musculoskeletal: Range of motion: intact in all extremities. 12:20 Reassessment: Pt's at bedside. . aa5 13:30 Reassessment: Patient appears in no apparent distress at this time. No changes from hb previously documented assessment. Patient and/or family updated on plan of care and expected duration. Pain level reassessed. 14:30 Reassessment: Patient appears in no apparent distress at this time. No changes from hb previously documented assessment. Patient and/or family updated on plan of care and expected duration. Pain level reassessed. 15:30 Reassessment: Patient appears in no apparent distress at this time. No changes from hb previously documented assessment. Patient and/or family updated on plan of care and expected duration. Pain level reassessed. 16:20 Neuro: Level of Consciousness is awake, obeys commands, confused, Oriented to person, aa5 place, situation. Respiratory: Airway is patent Respiratory effort is even, unlabored, Respiratory pattern is regular, symmetrical. Derm: Skin is pink, warm \\T\\ dry. 16:20 Reassessment: Pt's remains at bedside. . aa5 17:00 Reassessment: Pt being fed by , pt tolerating well. . aa5 17:30 Reassessment: Awaiting admission orders and COVID-19 swab result. . aa5 18:09 Reassessment: RBC consent form signed by pt's . . aa5 18:41 Reassessment: RBC unit # 1 administration started at 1826, no adverse reactions noted, aa5 infusion currently at 150mls/hr. See blood transfusion record for more info and complete VS. . 19:19 Reassessment: Report given to ANDRADE Haynes, transfer of care for blood transfusion aa5 completed (see blood transfusion record). . 19:20 Reassessment: Received care of pt at this time. Pt resting comfortably in hospital bed, ad5 resp even/unlabored. Denies c/o or needs at this time. Blood infusing without difficulty, verified by this RN with transferring RN. NAD noted, will continue to monitor. Vital Signs: 11:54 BP 169 / 62; Pulse 57; Resp 16; Temp 97.8; Pulse Ox 99% on R/A; Pain 0/10; hb 13:00 BP 176 / 62; Pulse 57; Resp 16 S; Pulse Ox 100% on R/A; aa5 14:13 BP 163 / 68; Pulse 57; Resp 16 S; Pulse Ox 99% on R/A; aa5 16:00 BP 160 / 65; Pulse 58; Resp 18 S; Pulse Ox 100% on R/A; aa5 18:24 BP 157 / 55; Pulse 57; Resp 16; Temp 99.0(TE); Pulse Ox 100% on R/A; aa5 18:41 BP 157 / 64; Pulse 57; Resp 18 S; Temp 99.0(TE); Pulse Ox 100% on R/A; aa5 19:28 BP 154 / 85; Pulse 77; Resp 16 S; Temp 99.1; Pulse Ox 100% ; ad5 ED Course: 11:54 Patient arrived in ED. hb 11:55 Triage completed. hb 11:55 Arm band placed on. hb 11:58 Homer Colon PA is PHCP. cp 11:58 Reinaldo Carrera MD is Attending Physician. cp 12:14 CT Head Brain wo Cont In Process Unspecified. EDMS 12:20 Patient has correct armband on for positive identification. Bed in low position. Call aa5 light in reach. Side rails up X2. Adult w/ patient. air sampling and monitoring on. Pulse ox on. NIBP on. 12:20 Missed attempt(s): 22 gauge in left antecubital area. Bleeding controlled, band aid mb4 applied, catheter tip intact. 12:35 Inserted saline lock: 20 gauge in left forearm, using aseptic technique. Blood aa5 collected. 12:35 Initial lab(s) drawn, by ms, sent to lab. First set of blood cultures drawn by me. aa5 12:45 Second set of blood cultures drawn by me. aa5 12:51 Meghan Singh, RN is Primary Nurse. aa5 13:31 XRAY Chest (1 view) In Process Unspecified. EDMS 13:48 Holcomb catheter d/c'd to be replaced per KAVIN. Pt's reports Holcomb was placed January aa2020. 13:50 Holcomb cath inserted, using sterile technique, 16 Fr., by me, balloon inflated, to aa5 gravity drainage, urine specimen collected. other Coude catheter used. 15:40 Pritesh Seth MD is Hospitalizing Provider. cp 19:40 No provider procedures requiring assistance completed. Patient admitted, IV remains in ea place. Administered Medications: 15:15 CANCELLED (Physician Discretion): NS 0.9% 250 ml IV at bolus once cp 15:20 Drug: LevaQUIN (levofloxacin) 750 mg Volume: 150 ml; Route: IVPB; Infused Over: 90 aa5 mins; Site: left forearm; 16:20 Follow up: Response: No adverse reaction; IV Status: Completed infusion aa5 15:20 Drug: NS 0.9% 500 ml Route: IV; Rate: bolus; Site: left forearm; aa5 16:20 Follow up: IV Status: Completed infusion aa5 Outcome: 15:41 Decision to Hospitalize by Provider. cp 19:41 Admitted to Med/surg accompanied by nurse, accompanied by tech, room 201, Report called ea to Receiving nurse on second floor 19:41 Condition: stable 19:41 Instructed on the need for admit, Demonstrated understanding of instructions. 20:01 Patient left the ED. ea Signatures: Dispatcher [employer] EDMS Meghan Singh RN RN aa5 Homer Colon PA PA cp Baxter, Heather RN RN Cass Vergara RN RN Jamia Guerin [facility] Corrections: (The following items were deleted from the chart) 19:01 18:41 Reassessment: RBC unit # 1 administration started at 1826, no adverse reactions aa5 noted, infusion currently at 150mls/hr. . aa5 19:02 17:30 Reassessment: Awaiting admission orders. . aa5 aa5 19:25 19:20 Reassessment: Received care of pt at this time. Pt resting comfortably in ad5 hospital bed ad5 19:53 19:25 Response: No adverse reaction; IV Status: Completed infusion ad5 aa5
--- NOTE | 2021-02-08 15:42 | EDPHYS ---
Physician Documentation [facility] Name: Mumtaz Anderson Age: 65 yrs Sex: Male : 1955 Arrival Date: 02/08/2021 Time: 11:54 Bed 8 Private MD: ED Physician Reinaldo Carrera HPI: 02/08 12:10 This 65 yrs old Male presents to ER via EMS with complaints of Altered Mental cp Status. 12:10 The patient presents with visual hallucinations. Onset: The symptoms/episode cp began/occurred yesterday. Possible causes: urinary tract infection. Associated signs and symptoms: Pertinent positives: intermittent left side chest pain, Pertinent negatives: abdominal pain, combativeness, headache, nausea, vomiting, fever. Current symptoms: In the emergency department the patient's symptoms have improved. Patient's baseline: Neuro: alert and fully oriented, Motor: no deficits, Ambulation: unable to walk, is bedridden, Speech: normal. Historical: - Allergies: 11:55 Latex, Natural Rubber; hb 11:55 Nexium D; hb 11:55 spironolactone; hb - Home Meds: 11:55 aspirin 81 mg Oral chew [Active]; atorvastatin 80 mg Oral tab 1 tab once daily hb [Active]; calcitrol [Active]; Carafate Oral [Active]; clopidogrel 75 mg Oral tab 1 tab once daily [Active]; doxazosin Oral [Active]; escitalopram oxalate 20 mg Oral tab 1 tab once daily [Active]; ferrous sulfate 325 mg (65 mg iron) Oral tab three times a day [Active]; gabapentin Oral [Active]; Lactobacillus acidophilus-pectin Oral [Active]; Lantus Sub-Q [Active]; Lasix 40 mg Oral tab 1 tab once daily [Active]; metformin 500 mg Oral tab 1 tab 2 times per day [Active]; Metoprolol Tartrate Oral [Active]; Norvasc Oral [Active]; Novolin 70/30 [place] Sub-Q [Active]; nystatin Topical [Active]; Toprol XL 50 mg Oral Tb24 1 tab once daily [Active]; Trazodone Oral [Active]; Tylenol [Active]; Zofran Oral [Active]; - PMHx: 11:55 Anemia; CAD; CHF; COPD; Diabetes - IDDM; Hypertension; Myocardial infarction; hb Parkinsons; Pneumonia; Seizures; - PSHx: 11:55 Coronary artery bypass graft; hip; hb - Immunization history:: Adult Immunizations up to date. - Social history:: Smoking status: Patient/guardian denies using tobacco. ROS: 12:15 Constitutional: Positive for poor PO intake, Negative for fever. cp 12:15 Eyes: Negative for injury, pain, redness, and discharge. cp 12:15 ENT: Negative for ear pain, sore throat, difficulty swallowing, difficulty handling secretions. 12:15 Neck: Negative for pain with movement, pain at rest, stiffness. 12:15 Cardiovascular: Positive for chest pain, Negative for edema, palpitations. 12:15 Respiratory: Negative for cough, shortness of breath, wheezing. 12:15 Abdomen/GI: Negative for abdominal pain, nausea, vomiting, and diarrhea, constipation, black/tarry stool, rectal bleeding. 12:15 Skin: Negative for rash. 12:15 Neuro: Positive for altered mental status, Negative for dizziness. 12:15 All other systems are negative. Exam: 12:15 Constitutional: The patient appears in no acute distress, alert, awake, cp non-diaphoretic, non-toxic, well developed, frail. 12:15 Head/Face: Normocephalic, atraumatic. cp 12:15 Eyes: Periorbital structures: appear normal, Pupils: equal, round, and reactive to light and accomodation, Extraocular movements: intact throughout, Conjunctiva: normal, no exudate, no injection, Sclera: no appreciated abnormality, Lids and lashes: appear normal, bilaterally. 12:15 ENT: External ear(s): are unremarkable, Nose: is normal, Mouth: Lips: dry, Oral mucosa: dry, Posterior pharynx: Airway: no evidence of obstruction, patent. 12:15 Neck: ROM/movement: is normal, is supple, without pain, no range of motions limitations, no meningismus. 12:15 Chest/axilla: Inspection: normal, Palpation: is normal, no crepitus, no tenderness. 12:15 Cardiovascular: Rate: bradycardic, Rhythm: regular, Edema: is not appreciated, JVD: is not appreciated. 12:15 Respiratory: the patient does not display signs of respiratory distress, Respirations: normal, no use of accessory muscles, labored breathing, is not present, intercostal retractions, are absent, Breath sounds: are clear throughout, no decreased breath sounds, no stridor, no wheezing. 12:15 Abdomen/GI: Inspection: abdomen appears normal, Bowel sounds: active, all quadrants, Palpation: abdomen is soft and non-tender, in all quadrants. 12:15 Back: pain, is absent, ROM is normal. 12:15 Skin: cellulitis, is not appreciated, no rash present. 12:15 Neuro: Orientation: to person, situation, Mentation: able to follow commands, slow to respond. 12:40 ECG was reviewed by the Attending Physician. cp Vital Signs: 11:54 BP 169 / 62; Pulse 57; Resp 16; Temp 97.8; Pulse Ox 99% on R/A; Pain 0/10; hb 13:00 BP 176 / 62; Pulse 57; Resp 16 S; Pulse Ox 100% on R/A; aa5 14:13 BP 163 / 68; Pulse 57; Resp 16 S; Pulse Ox 99% on R/A; aa5 16:00 BP 160 / 65; Pulse 58; Resp 18 S; Pulse Ox 100% on R/A; aa5 18:24 BP 157 / 55; Pulse 57; Resp 16; Temp 99.0(TE); Pulse Ox 100% on R/A; aa5 18:41 BP 157 / 64; Pulse 57; Resp 18 S; Temp 99.0(TE); Pulse Ox 100% on R/A; aa5 19:28 BP 154 / 85; Pulse 77; Resp 16 S; Temp 99.1; Pulse Ox 100% ; ad5 MDM: 11:58 Patient medically screened. cp 15:45 Data reviewed: vital signs, nurses notes, lab test result(s), EKG, radiologic studies, cp CT scan, plain films, I have discussed the patient's presentation/case with the attending Emergency Department Physician; and as a result, I will admit patient. 02/08 12:08 Order name: Basic Metabolic Panel; Complete Time: 13:56 02/08 13:56 Interpretation: Normal except: CL 109; GLUC 124; BUN 78; GFR 58. cp 02/08 12:08 Order name: CBC with Diff; Complete Time: 13:56 02/08 14:50 Interpretation: Normal except: RBC 2.88; HGB 7.0; HCT 21.4; MCV 74.6; MCH 24.4; RDW cp 19.4; BEST% 75.1; LYM% 11.3. 02/08 12:08 Order name: LFT's; Complete Time: 13:56 02/08 12:08 Order name: Magnesium; Complete Time: 13:56 02/08 12:08 Order name: PT-INR; Complete Time: 13:56 02/08 12:08 Order name: Troponin (emerg Dept Use Only); Complete Time: 13:56 02/08 12:08 Order name: Procalcitonin; Complete Time: 14:49 02/08 14:50 Interpretation: Abnormal: Procalcitonin 0.15. 02/08 12:08 Order name: Lactate; Complete Time: 13:56 02/08 12:08 Order name: Blood Culture Adult (2) 02/08 12:22 Order name: Urine Microscopic Only 02/08 12:22 Order name: Urine Microscopic Only; Complete Time: 14:59 EDDE 02/08 14:00 Order name: Urine Dipstick-Ancillary; Complete Time: 14:49 EDDE 02/08 14:50 Interpretation: Normal except: UBLD 1+; UPROT 3+; UESTR 2+. 02/08 14:55 Order name: Urine Culture [facility] 02/08 15:14 Order name: Type And Screen 02/08 11:59 Order name: CT Head Brain wo Cont; Complete Time: 13:56 02/08 12:08 Order name: XRAY Chest (1 view); Complete Time: 13:56 02/08 12:08 Order name: EKG; Complete Time: 12:08 02/08 12:08 Order name: Cardiac monitoring; Complete Time: 12:28 02/08 12:08 Order name: EKG - Nurse/Tech; Complete Time: 12:52 02/08 12:08 Order name: IV Saline Lock; Complete Time: 12:52 02/08 12:08 Order name: Labs collected and sent; Complete Time: 12:52 02/08 12:08 Order name: O2 Per Protocol; Complete Time: 12:28 02/08 12:08 Order name: O2 Sat Monitoring; Complete Time: 12:28 02/08 15:48 Order name: Bb Add On bd 02/08 16:17 Order name: Packed RBC Leukored [facility] 02/08 17:39 Order name: SARS-COV-2 RT PCR [facility] 02/08 12:22 Order name: Cath; Complete Time: 14:00 cp 02/08 12:22 Order name: Urine Dipstick-Ancillary (obtain specimen); Complete Time: 14:00 cp EC:40 Rhythm is regular. TX interval is prolonged at 232 msec. QRS interval is prolonged at cp 154 msec. QT interval is normal. T waves are Inverted in leads III, aVF. Interpreted by me. Reviewed by me. Administered Medications: 15:15 CANCELLED (Physician Discretion): NS 0.9% 250 ml IV at bolus once cp 15:20 Drug: LevaQUIN (levofloxacin) 750 mg Volume: 150 ml; Route: IVPB; Infused Over: 90 aa5 mins; Site: left forearm; 16:20 Follow up: Response: No adverse reaction; IV Status: Completed infusion aa5 15:20 Drug: NS 0.9% 500 ml Route: IV; Rate: bolus; Site: left forearm; aa5 16:20 Follow up: IV Status: Completed infusion aa5 Disposition Summary: 02/08/21 15:41 Hospitalization Ordered Hospitalization Status: Inpatient Admission cp Provider: Pritesh Seth cp Condition: Stable cp Problem: new cp Symptoms: have improved cp Bed/Room Type: Standard cp [facility]17[facility] tl1 Room Assignment: 201(02/08/21 19:17) tl1 Diagnosis - UTI/ Urinary tract infection, site not specified cp - Pneumonia, unspecified organism cp - Anemia in other chronic diseases classified elsewhere cp - Altered mental status, unspecified cp Forms: - Medication Reconciliation Form cp - SBAR form cp Addendum: 02/11/2021 07:03 Co-signature as Attending Physician, Reinaldo Carrera MD I agree with the assessment and r n plan of care. Attestation: The patient's history, exam findings, diagnostics, and a summary of any interventions or procedures was reviewed in detail with Homer VALE. Signatures: Dispatcher [facility] Reinaldo Carrera MD MD rn Calderon, Audri RN RN aa5 Marilyn Cunningham RN RN Chitra Laguerre RN RN tl1 Homer Colon PA PA cp Christina Jauregui, RN RN Corrections: (The following items were deleted from the chart) 02/08 15:15 15:15 NS 0.9% 250 ml IV at bolus once ordered. cp cp 16:12 15:40 CORONAVIRUS+[id number].BRZ ordered. EDMS EDMS 17:39 15:41 Telemetry/MedSurg (Inpatient) cp 17:39 15:41 cp 19:17 17:39 BR ER HOLD ss tl1 19:17 17:39 ERHOLD- ss tl1
[2021-02-08] MEDS ORDERED: Levofloxacin 750mg IV 750 MG/150 ML BAG IV ONE (16:07)
[2021-02-08] MEDS ORDERED: NA CHLORIDE 0.9% 500 ML ONE (16:07)
[2021-02-08] MEDS ORDERED: ONDANSETRON 4 MG/2 ML VIAL IV PRN (17:18)
[2021-02-08] MEDS ORDERED: ALBUTEROL 2.5 MG/3 ML NEB SOL NEB PRN (17:18)
[2021-02-08] MEDS ORDERED: ACETAMINOPHEN 500 MG TAB PO PRN (17:18)
[2021-02-08] MEDS ORDERED: IPRATROPIUM BROM 0.5MG/2.5ML NEB PRN (17:18)
[2021-02-08] MEDS ORDERED: MORPHINE 4 MG/ML SYR IV PRN (17:18)
[2021-02-08] MEDS: PIPER/TAZO/NS 3.375gm 3.375 GM/100 ML BAG IVPB SCH (18:00)
--- NOTE | 2021-02-08 18:36 | P.HP ---
Certification for Inpatient Patient admitted to: Inpatient With expected LOS: >2 Midnights Patient will require the following post-hospital care: None Practitioner: I am a practitioner with admitting privileges, knowledge of patient current condition, hospital course, and medical plan of care. Services: Services provided to patient in accordance with Admission requirements found in Title 42 Section 412.3 of the Code of Federal Regulations Patient History Date of Service: 02/08/21 Reason for admission: Severe anemia; UTIs; toxic encephalopathy History of Present Illness: Patient is a 65-year-old gentleman who came into the hospital with altered mental status. Patient's takes care of him. Patient was found have a UTI and a pneumonia. Patient also was severely anemic. Patient be admitted to the hospital for blood transfusion and antibiotic therapy. Patient has been to the hospital on numerous occasions. His is his main director clinical pharmacology. She does just about everything for him. Patient will need admission for further evaluation. Allergies spironolactone Adverse Reaction (Verified 12/02/20 00:07) Anaphylaxis "nexia d" Allergy (Mild, Uncoded 12/02/20 00:07) Unknown Home Medications: Aspirin [Adult Aspirin Regimen] 81 mg FT BEDTIME 06/04/20 Atorvastatin Calcium [Lipitor] 80 mg FT BEDTIME 06/04/20 Amlodipine [Norvasc*] 5 mg FT DAILY 07/16/20 Clopidogrel Bisulfate [Plavix*] 75 mg FT DAILY 07/16/20 Escitalopram [Lexapro*] 20 mg FT DAILY 07/16/20 Gabapentin 300 mg FT BID 07/16/20 Ferrous Sulfate [Ferrous Sulfate*] 325 mg FT TID 12/02/20 Doxazosin [Cardura*] 2 mg FT BEDTIME 30 Days #30 tab 12/08/20 Glucerna 1.5 Higinio 360 ml FT QID #10 bot 12/08/20 Insulin Lispro [Admelog] See Protocol SQ SEECOM #1 vial 12/08/20 Acetaminophen [Acetaminophen Extra Strength] 1 tab FT DAILY PRN 12/16/20 Ascorbic Acid [Vitamin C] 1,000 mg FT TID 12/16/20 Calcitonin [Miacalcin Nasal [place]*] 1 spray IN DAILY 12/16/20 Ondansetron HCl [Zofran] 1 tab FT Q8H PRN 12/16/20 Promethazine HCl 1 tab FT Q6H PRN 12/16/20 Sucralfate [Carafate] 1 ml FT ACHS 12/16/20 Tramadol HCl [Ultram] 50 mg FT DAILY PRN 12/16/20 Trazodone HCl 1 tab FT BEDTIME 12/16/20 Furosemide [Lasix*] 20 mg PO BIDL #60 tab 12/21/20 - Past Medical/Surgical History Diabetic: Yes -: Diabetes mellitus type 2, insulin-dependent -: CAD -: Hypertension -: Hyperlipidemia -: COPD -: Tobacco abuse -: Fracture t12 L3 -: Lung disease -: GI disease -: seizures -: Stroke -: Knee surgery -: I&D lower right buttock -: hiatal hernia repair -: I and D to the left foot -: Left Bipolar Hemiarthroplasty 04/06/19 -: Hip surgery -: CABG -: hand sx Psychosocial/ Personal History: Patient is single. He lives with his son. - Family History Father Medical History: Heart disease, Hypertension, Lung disease, GI disease, Diabetes, Cancer, Other (see notes) Notes: parkinson's disease Mother Medical History: Heart disease, Hypertension, Diabetes, Cancer Sister Medical History: Cancer - Social History Smoking Status: Former smoker Alcohol use: No CD- Drugs: No Review of Systems 10-point ROS is otherwise unremarkable Physical Examination - Vital Signs Temperature: 98.9 F Blood Pressure: 130/80 Pulse: 80 Respirations: 18 Pulse Ox (%): 95 - Physical Exam General: Alert, In no apparent distress, Confused HEENT: Atraumatic, PERRLA, Mucous membr. moist/pink, EOMI, Sclerae nonicteric Neck: Supple, 2+ carotid pulse no bruit, No LAD, Without JVD or thyroid abnormality Respiratory: Diminished Cardiovascular: Regular rate/rhythm, Normal S1 S2, No murmurs Gastrointestinal: Normal bowel sounds, Soft and benign, Non-distended, No tenderness Musculoskeletal: No clubbing, No swelling, No tenderness Integumentary: No rashes Neurological: Normal gait, Normal speech, Normal strength at 5/5 x4 extr, Normal tone, Sensation intact, Cranial nerves 3-12 intact, Normal affect Lymphatics: No axilla or inguinal lymphadenopathy - Studies Laboratory Data (last 24 hrs) 02/08/21 12:35: PT 12.9 H, INR 1.12 02/08/21 12:35: WBC 7.10, Hgb 7.0 L, Hct 21.4 L, Plt Count 159 02/08/21 12:35: Sodium 143, Potassium 4.3, BUN 78 H, Creatinine 1.25, Glucose 124 H, Magnesium 3.2 H, Total Bilirubin 0.5, AST 30, ALT 94 H, Alkaline Phosphatase 107 Assessment & Plan - Problems (Diagnosis) (1) Acute blood loss anemia Current Visit: No Status: Acute (2) Depression Current Visit: No Status: Acute (3) Diabetes Current Visit: No Status: Acute (4) History of GI bleed Current Visit: No Status: Acute (5) Pneumonia Current Visit: No Status: Acute (6) Urinary tract infection Current Visit: No Status: Acute (7) Hypertension Onset Date: 11/05/16 Current Visit: No Status: Chronic - Plan Plan: 1. Continue with IV hydration and PPI drip 2. Continue with IV antibiotics 3. Continue with pain control 4. Clear liquid diet 5. GI consultation if hemoglobin decreases after transfusion 6. Serial H&H, and we will monitor LFTs and lipase along with electrolytes. 7. Repeat chest x-ray 8. O2 per protocol; Awaiting sputum and blood culture 9. Repeat labs including CBC and renal function in a.m. 10. GI and DVT prophylaxis Discharge Plan: Home Plan to discharge in: Greater than 2 days - Advance Directives Does patient have a Living Will: No Does patient have a Durable POA for Healthcare: No - Code Status/Comfort Care Code Status Assessed: Yes Code Status: Full Code Critical Care: No Time Spent Managing PTS Care (In Minutes): 45
[2021-02-08] MEDS ORDERED: NA CHLORIDE 0.9% 250 ML ONE ×2 (18:37→23:48)
[2021-02-08 23:50] VITALS: BMI 19.0
[2021-02-09] MEDS: PIPER/TAZO/NS 3.375gm 3.375 GM/100 ML BAG IVPB SCH ×3 (01:00→16:56)
[2021-02-09] MEDS: NA CHLORIDE 0.9% 1,000 ML IV SCH ×2 (03:13→07:20)
[2021-02-09] MEDS ORDERED: PIPERACIL/TAZO 3.375 GM VIAL IV ONE (03:31)
[2021-02-09] MEDS ORDERED: NA CHLORIDE 0.9% 100 ML ONE (03:31)
[2021-02-09 05:55] LABS: Absolute Lymphocytes (CBC) 0.9 K/uL (0.7-4.9); Basophils % 0.8 % (0-1.3); Hematocrit 26.7 % (39.6-49.0); Lymphocytes % 14.3 % (15.3-44.8); MPV 9.9 fL (7.6-11.3); RBC Red Blood Cell Count 3.38 M/uL (4.33-5.43)
[2021-02-09 06:02] LABS: RBC Red Blood Cell Count 3.33 M/uL (4.33-5.43)
[2021-02-09 06:11] LABS: Protime INR 1.13
[2021-02-09 06:40] LABS: Albumin 2.7 g/dL (3.4-5.0); Bilirubin Total 0.7 mg/dL (0.2-1.0); Ferritin 1782.4 ng/mL (26-388); Folic Acid, (Folate) 19.5 ng/mL (3.1-17.5); Phosphorus 4.1 mg/dL (2.5-4.9); Potassium 4.7 mmol/L (3.5-5.1); Protein, Total 6.4 g/dL (6.4-8.2)
[2021-02-09 06:41] LABS: Thyroid Stimulating Hormone 3.95 uIU/mL (0.360-3.740)
[2021-02-09 09:09] LABS: Anisocytosis 1+; Blood Morphology Comment NOTED (NOT SEEN); Platelet Estimate DECR; White Blood Cell Scan OK (OK)
[2021-02-09] MEDS ORDERED: PIPER TAZO 3.375 GM in NA CHLORIDE 0.9% 100 ML IV SCH (09:45)
--- NOTE | 2021-02-09 09:47 | P.CNS ---
Date of Consult: 02/09/21 Reason for Consult: CKD Requesting Physician: Pritesh Seth Chief Complaint: Severe anemia; UTIs; toxic encephalopathy History of Present Illness: Patient is a 65-year-old gentleman who came into the hospital with altered mental status. Patient's takes care of him. Patient was found have a UTI and a pneumonia. Patient also was severely anemic. Patient be admitted to the hospital for blood transfusion and antibiotic therapy. Patient has been to the hospital on numerous occasions. His is his main senior actuarial analyst. She does just about everything for him. Patient will need admission for further evaluation. 12:10 This 65 yrs old Male presents to ER via EMS with complaints of Altered Mental cp Status. 12:10 The patient presents with visual hallucinations. Onset: The symptoms/episode cp began/occurred yesterday. Possible causes: urinary tract infection. Associated signs and symptoms: Pertinent positives: intermittent left side chest pain, Pertinent negatives: abdominal pain, combativeness, headache, nausea, vomiting, fever. Current symptoms: In the emergency department the patient's symptoms have improved. Patient's baseline: Neuro: alert and fully oriented, Motor: no deficits, Ambulation: unable to walk, is bedridden, Speech: normal. Allergies spironolactone Adverse Reaction (Verified 02/08/21 23:48) Anaphylaxis nexen Adverse Reaction (Uncoded 02/08/21 23:48) hallucination Home medications list reviewed: Yes Home Medications: Aspirin [Adult Aspirin Regimen] 81 mg FT BEDTIME 06/04/20 Atorvastatin Calcium [Lipitor] 80 mg FT BEDTIME 06/04/20 Amlodipine [Norvasc*] 10 mg FT DAILY 07/16/20 Clopidogrel Bisulfate [Plavix*] 75 mg FT DAILY 07/16/20 Escitalopram [Lexapro*] 30 mg FT DAILY 07/16/20 Gabapentin 300 mg FT BID 07/16/20 Doxazosin [Cardura*] 2 mg FT BEDTIME 30 Days #30 tab 12/08/20 Glucerna 1.5 Higinio 360 ml FT QID #10 bot 12/08/20 Insulin Lispro [Admelog] See Protocol SQ [facility] #1 vial 12/08/20 Acetaminophen [Acetaminophen Extra Strength] 1 tab FT PRN PRN 12/16/20 Ascorbic Acid [Vitamin C] 2,000 mg FT TID 12/16/20 Calcitonin [Miacalcin Nasal [employer]*] 1 spray IN DAILY 12/16/20 Ondansetron HCl [Zofran] 1 tab FT Q8H PRN 12/16/20 Promethazine HCl 1 tab FT Q6H PRN 12/16/20 Sucralfate [Carafate] 100 mg FT Q6H 12/16/20 Tramadol HCl [Ultram] 50 mg FT Q4H PRN 12/16/20 Trazodone HCl 150 tab FT BEDTIME 12/16/20 Furosemide [Lasix*] 20 mg PO BIDL #60 tab 12/21/20 Ferrous Sulfate [Ferrous Sulfate Elixir*] 5 ml FT TID 02/09/21 Metoprolol Tartrate [Lopressor] 100 mg FT BID 02/09/21 - Past Medical/Surgical History Diabetic: Yes -: Diabetes mellitus type 2, insulin-dependent -: CAD -: Hypertension -: Hyperlipidemia -: COPD -: Tobacco abuse -: Fracture t12 L3 -: Lung disease -: GI disease -: seizures -: Stroke -: Knee surgery -: I&D lower right buttock -: hiatal hernia repair -: I and D to the left foot -: Left Bipolar Hemiarthroplasty 04/06/19 -: Hip surgery -: CABG -: hand sx Psychosocial/ Personal History: Patient is single. He lives with his son. - Family History Father Medical History: Heart disease, Hypertension, Lung disease, GI disease, Diabetes, Cancer, Other (see notes) Notes: parkinson's disease Mother Medical History: Heart disease, Hypertension, Diabetes, Cancer Sister Medical History: Cancer - Social History Smoking Status: Unknown if ever smoked Alcohol use: No CD- Drugs: No Caffeine use: Yes Place of Residence: Home Review of Systems 10-point ROS is otherwise unremarkable General: Weakness, Malaise Neurological: Confusion Physical Examination Temp Pulse Resp BP Pulse Ox 98 F 56 16 163/74 H 98 02/09/21 08:00 02/09/21 08:00 02/09/21 08:00 02/09/21 08:00 02/09/21 08:00 General: In no apparent distress, Cooperative HEENT: Atraumatic Neck: Supple Respiratory: Clear to auscultation bilaterally Cardiovascular: Normal pulses, Regular rate/rhythm Gastrointestinal: Soft and benign, Non-distended Musculoskeletal: No clubbing, No contractures, Other (Sarcopenia) Integumentary: No rashes, No cyanosis Neurological: Normal speech Laboratory Data (last 24 hrs) 02/08/21 12:35: PT 12.9 H, INR 1.12 02/08/21 12:35: WBC 7.10, Hgb 7.0 L, Hct 21.4 L, Plt Count 159 02/08/21 12:35: Sodium 143, Potassium 4.3, BUN 78 H, Creatinine 1.25, Glucose 124 H, Magnesium 3.2 H, Total Bilirubin 0.5, AST 30, ALT 94 H, Alkaline Phosphatase 107 Imagings Data: EXAM DESCRIPTION: RAD - Chest Single View - 02/08/2021 1:31 pm CLINICAL HISTORY: ams COMPARISON: Chest Single View dated 12/19/2020; Chest Single View dated 12/17/2020; Chest Single View dated 12/15/2020; Chest Single View dated 12/01/2020; Abdomen Pelvis W Contrast dated 12/01/2020 FINDINGS: Hazy basilar opacities including more focal type retrocardiac opacities. Part of the left hemidiaphragm is obscured. Cardiomegaly.No acute osseous abnormality. Difficult to exclude small effusions. IMPRESSION: Mild basilar opacities may represent a combination of layering pleural effusions, atelectasis, and/or pneumonia Conclusions/Impression: CKD III with proteinuria Proteinuria -No NSAIDs -Change IVF 1/2NS HTN with CKD -Restart Amlodipine -Restart Metoprolol and Doxazosin DM II with CKD -RED Moderate Malnutrition PEG status -Continue diet as tolerated Anemia in chronic illness, microcytosis -Monitor H&H -Continue oral iron Acute cystitis Chronic indwelling hernandez -Continue Zosyn -Follow up culture Thank you kindly for the consultation.
[2021-02-09] MEDS ORDERED: PROMETHAZINE 25 MG TABLET FT PRN (10:46)
[2021-02-09] MEDS ORDERED: TRAMADOL HCL 50 MG TAB FT PRN (10:46)
[2021-02-09] MEDS ORDERED: ONDANSETRON 4 MG (ODT) TAB FT PRN (10:46)
[2021-02-09] MEDS ORDERED: GLUCAGON 1 MG/VIAL IM PRN (10:46)
[2021-02-09] MEDS ORDERED: D50W 25 GM/50 ML SYRINGE IV PRN (10:46)
[2021-02-09] MEDS ORDERED: INSULIN LISPRO 100 UNIT/1 ML SQ SCH (11:00)
[2021-02-09] MEDS: NACHLORIDE 0.45% 1,000 ML IV SCH (11:59)
[2021-02-09] MEDS: SUCRALFATE 1GM/10ML UCUP FT SCH ×2 (12:00→17:32)
[2021-02-09] MEDS: GLUCERNA 1.5 CAL 1,000 ML BOT FT SCH ×3 (14:06→21:00)
[2021-02-09] MEDS: ASCORBIC ACID 500 MG TABLET FT SCH ×2 (14:08→21:00)
[2021-02-09] MEDS: FUROSEMIDE 20 MG TABLET PO SCH (16:53)
[2021-02-09] MEDS: DOXAZOSIN 2 MG TAB FT SCH (21:00)
[2021-02-09] MEDS: GABAPENTIN 300 MG CAP FT SCH (21:00)
[2021-02-09] MEDS: TRAZODONE 150 MG TAB FT SCH (21:00)
[2021-02-09] MEDS: ATORVASTATIN 80 MG TAB FT SCH (21:00)
[2021-02-09] MEDS: METOPROLOL TAR 50 MG TAB FT SCH (21:00)
[2021-02-09] MEDS: ASPIRIN 81 MG CHEWABLE TABLET FT SCH (21:00)
[2021-02-10] MEDS: NACHLORIDE 0.45% 1,000 ML IV SCH (00:20)
[2021-02-10] MEDS: PIPER/TAZO/NS 3.375gm 3.375 GM/100 ML BAG IVPB SCH ×3 (02:04→16:47)
[2021-02-10] MEDS: SUCRALFATE 1GM/10ML UCUP FT SCH ×4 (06:00→17:04)
--- NOTE | 2021-02-10 07:54 | P.PN ---
Subjective Date of Service: 02/09/21 Patient doing well with no new complaints. Clinically patient is doing well. Doing well after blood transfusion. Hemoglobin is stable. 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 Review of Systems 10-point ROS is otherwise unremarkable Physical Examination - Vital Signs Temperature: 97.0 F Blood Pressure: 131/58 Pulse: 78 Respirations: 17 Pulse Ox (%): 95 - Physical Exam General: Alert, In no apparent distress, Cooperative HEENT: Atraumatic, PERRLA, EOMI Neck: Supple, JVD not distended Respiratory: Clear to auscultation bilaterally, Normal air movement Cardiovascular: Regular rate/rhythm, Normal S1 S2 Gastrointestinal: Normal bowel sounds, Soft and benign, Non-distended, No tenderness, Other (Peg tube is in place) Musculoskeletal: No clubbing, No swelling, No tenderness Neurological: Sensation intact, Cranial nerves 3-12 intact, Normal affect, Other (Generalized weakness) - Studies Medications List Reviewed: Yes Assessment & Plan - Problems (Diagnosis) (1) Acute blood loss anemia Current Visit: No Status: Acute (2) Depression Current Visit: No Status: Acute (3) Diabetes Current Visit: No Status: Acute (4) History of GI bleed Current Visit: No Status: Acute (5) Pneumonia Current Visit: No Status: Acute (6) Urinary tract infection Current Visit: No Status: Acute (7) Hypertension Onset Date: 11/05/16 Current Visit: No Status: Chronic - Plan Plan: 1. Patient was hydrated and given blood transfusion and is stable. 2. Continue with IV antibiotics 3. Continue with pain control 4. PEG tube feedings as tolerated 5. Hemoglobin unstable 6. Continue to turn and wound care 7. Repeat labs including CBC and renal function in a.m. 8. GI and DVT prophylaxis Discharge Plan: Home Plan to discharge in: Greater than 2 days - Advance Directives Does patient have a Living Will: No Does patient have a Durable POA for Healthcare: No - Code Status/Comfort Care Code Status: Full Code Critical Care: No Time Spent Managing PTS Care (In Minutes): 35
[2021-02-10 08:56] LABS: Absolute Lymphocytes (CBC) 0.9 K/uL (0.7-4.9); Basophils % 1.2 % (0-1.3); Hematocrit 28.3 % (39.6-49.0); Lymphocytes % 11.9 % (15.3-44.8); RBC Red Blood Cell Count 3.64 M/uL (4.33-5.43)
[2021-02-10] MEDS: ASCORBIC ACID 500 MG TABLET FT SCH ×3 (09:00→21:00)
[2021-02-10] MEDS: GLUCERNA 1.5 CAL 1,000 ML BOT FT SCH ×4 (09:00→21:00)
[2021-02-10] MEDS: FUROSEMIDE 20 MG TABLET PO SCH ×2 (09:00→16:48)
[2021-02-10] MEDS: GABAPENTIN 300 MG CAP FT SCH ×2 (09:00→21:00)
[2021-02-10] MEDS: METOPROLOL TAR 50 MG TAB FT SCH ×2 (09:00→21:00)
[2021-02-10] MEDS: ESCITALOPRAM 20 MG TAB FT SCH (09:00)
[2021-02-10] MEDS: CALCITONIN NASAL SPRAY 200 IU/DOSE NAS SCH (09:00)
[2021-02-10] MEDS: AMLODIPINE 10 MG TAB FT SCH (09:00)
[2021-02-10] MEDS: CLOPIDOGREL 75 MG TABLET FT SCH (09:00)
[2021-02-10 09:09] LABS: Potassium 4.3 mmol/L (3.5-5.1)
[2021-02-10] MEDS ORDERED: FLUCONAZOLE 100 MG TAB PO ONE (13:09)
--- NOTE | 2021-02-10 15:58 | P.PN ---
Date of Service: 02/10/21 Vital Signs Temp Pulse Resp BP Pulse Ox 98.6 F 58 17 177/73 H 97 02/10/21 12:00 02/10/21 12:00 02/10/21 12:00 02/10/21 12:00 02/10/21 12:00 Medications Acetaminophen (Acetaminophen 500 Mg Tab) 500 mg PO Q6H PRN PRN Reason: TEMP > 100' F OR MILD PAIN Albuterol Sulfate (Albuterol 2.5 Mg/3 Ml Neb [place]) 2.5 mg NEB [id number] PRN PRN Reason: SHORTNESS OF BREATH Amlodipine Besylate (Amlodipine 10 Mg Tab) 10 mg FT DAILY [facility] Last Admin: 02/10/21 09:00 Dose: Not Given Documented by: Ascorbic Acid (Ascorbic Acid 500 Mg Tablet) 2,000 mg FT TID [facility] Last Admin: 02/10/21 14:00 Dose: Not Given Documented by: Aspirin (Aspirin 81 Mg Chewable Tablet) 81 mg FT BEDTIME [facility] Last Admin: 02/09/21 21:00 Dose: Not Given Documented by: Atorvastatin Calcium (Atorvastatin 80 Mg Tab) 80 mg FT BEDTIME [facility] Last Admin: 02/09/21 21:00 Dose: Not Given Documented by: Calcitonin [place] (Calcitonin Nasal [place] 200 Iu/Dose) 1 sprays GEMA DAILY [facility] Last Admin: 02/10/21 09:00 Dose: Not Given Documented by: Clopidogrel Bisulfate (Clopidogrel 75 Mg Tablet) 75 mg FT DAILY [facility] Last Admin: 02/10/21 09:00 Dose: Not Given Documented by: Dextrose (D50w 25 Gm/50 Ml Syringe) 12.5 gm IV PRN PRN; Protocol PRN Reason: HYPOGLYCEMIA Doxazosin Mesylate (Doxazosin 2 Mg Tab) 2 mg FT BEDTIME [facility] Last Admin: 02/09/21 21:00 Dose: Not Given Documented by: Enteral Nutritional Formula (Glucerna 1.5 Higinio 1,000 Ml Bot) 360 ml FT QID [facility] Last Admin: 02/10/21 13:00 Dose: 360 ml Documented by: Escitalopram Oxalate (Escitalopram 20 Mg Tab) 30 mg FT DAILY [facility] Last Admin: 02/10/21 09:00 Dose: Not Given Documented by: Ferrous Sulfate (Ferrous Sulfate 220 Mg/5 Ml Elixir) 220 mg FT TID [facility] Last Admin: 02/10/21 14:00 Dose: Not Given Documented by: Fluconazole (Fluconazole 100 Mg Tab) 200 mg PO DAILY [facility]; Protocol Furosemide (Furosemide 20 Mg Tablet) 20 mg PO BIDL [facility] Last Admin: 02/10/21 09:00 Dose: Not Given Documented by: Gabapentin (Gabapentin 300 Mg Cap) 300 mg FT BID [facility] Last Admin: 02/10/21 09:00 Dose: Not Given Documented by: Glucagon (Glucagon 1 Mg/Vial) 1 mg IM 1X PRN; Protocol PRN Reason: HYPOGLYCEMIA Piperacillin Sod/Tazobactam Sod (Zosyn 3.375 Gm/100 Ml Ns Ivpb) 3.375 gm in 100 mls @ 25 mls/hr IVPB Q8HR [facility]; Protocol Last Admin: 02/10/21 09:10 Dose: 100 mls Documented by: Insulin Human Lispro (Insulin Lispro 100 Unit/1 Ml) 0 unit SQ SEECOM [facility]; Protocol Ipratropium [place] (Ipratropium Brom 0.5mg/2.5ml) 0.5 mg NEB [id number] PRN PRN Reason: SHORTNESS OF BREATH Lidocaine HCl (Lidocaine Viscous 2% Soln 15 Ml Udc) 15 ml PO BID [facility] Metoprolol Tartrate (Metoprolol Tar 50 Mg Tab) 100 mg FT BID [facility] Last Admin: 02/10/21 09:00 Dose: Not Given Documented by: Miconazole Nitrate (Miconazole 2% Topical 15 Gm) 1 appl TOP BID [facility] Morphine Sulfate (Morphine 4 Mg/Ml Syr) 4 mg IV Q4H PRN PRN Reason: Pain scale 8-10 (Severe) Ondansetron HCl (Ondansetron 4 Mg/2 Ml Vial) 4 mg IV Q4H PRN PRN Reason: NAUSEA / VOMITING Ondansetron HCl (Ondansetron 4 Mg (Odt) Tab) 4 mg FT Q8H PRN PRN Reason: NAUSEA / VOMITING Promethazine HCl (Promethazine 25 Mg Tablet) 25 mg FT Q6H PRN PRN Reason: NAUSEA / VOMITING Sodium Chloride (Flush Normal Saline 10 Ml) 10 ml IV BID [facility] Last Admin: 02/10/21 09:00 Dose: 10 ml Documented by: Sucralfate (Sucralfate 1gm/10ml Ucup) 0.1 gm FT Q6HR [facility] Last Admin: 02/10/21 11:56 Dose: Not Given Documented by: Tramadol HCl (Tramadol Hcl 50 Mg Tab) 50 mg FT Q4H PRN PRN Reason: Pain scale 5-7 (Moderate) Trazodone HCl (Trazodone 150 Mg Tab) 150 mg FT BEDTIME [facility] Last Admin: 02/09/21 21:00 Dose: Not Given Documented by: Lab Results (last 24 hrs) 02/08/21 15:50: ABO/Rh A POSITIVE, Solid Phase Ab Screen Negative, Crossmatch See Detail Microbiology Results 02/08/21 13:50 Clean Catch Urine [place] Count - Preliminary BETWEEN 10,000 & 100,000 CFU/ML 02/08/21 13:50 Clean Catch Urine - Preliminary Gram Neg [place] 02/08/21 12:35 Blood - Blood Aerobic Blood Culture - Preliminary No growth in 24 hours. 02/08/21 12:35 Blood - Blood Anaerobic Blood Culture - Preliminary No growth in 24 hours. 02/08/21 12:45 Blood - Blood Aerobic Blood Culture - Preliminary No growth in 24 hours. 02/08/21 12:45 Blood - Blood Anaerobic Blood Culture - Preliminary No growth in 24 hours. Assessment/ Plan: Nephrology Progress Note Feeling better today. reports a small rash on his left leg. No chest pain or dyspnea No acute events overnight Vitals, medications blood work and imaging reviewed in the chart General: In no apparent distress, Cooperative HEENT: Atraumatic Neck: Supple Respiratory: Clear to auscultation bilaterally Cardiovascular: Normal pulses, Regular rate/rhythm Gastrointestinal: Soft and benign, Non-distended Musculoskeletal: No clubbing, No contractures, Other (Sarcopenia) Integumentary: No rashes, No cyanosis Neurological: Normal speech Laboratory Data (last 24 hrs) 02/08/21 12:35: PT 12.9 H, INR 1.12 02/08/21 12:35: WBC 7.10, Hgb 7.0 L, Hct 21.4 L, Plt Count 159 02/08/21 12:35: Sodium 143, Potassium 4.3, BUN 78 H, Creatinine 1.25, Glucose 124 H, Magnesium 3.2 H, Total Bilirubin 0.5, AST 30, ALT 94 H, Alkaline Phosphatase 107 Imagings Data: EXAM DESCRIPTION: RAD - Chest Single View - 02/08/2021 1:31 pm CLINICAL HISTORY: ams COMPARISON: Chest Single View dated 12/19/2020; Chest Single View dated 12/17/2020; Chest Single View dated 12/15/2020; Chest Single View dated 12/01/2020; Abdomen Pelvis W Contrast dated 12/01/2020 FINDINGS: Hazy basilar opacities including more focal type retrocardiac opacities. Part of the left hemidiaphragm is obscured. Cardiomegaly.No acute osseous abnormality. Difficult to exclude small effusions. IMPRESSION: Mild basilar opacities may represent a combination of layering pleural effusions, atelectasis, and/or pneumonia Conclusions/Impression: CKD III with proteinuria Proteinuria -No NSAIDs -Discontinue IVF -Continue furosemide HTN with CKD -Continue Amlodipine -Continue Metoprolol and Doxazosin DM II with CKD -RED -Continue furosemide Moderate Malnutrition PEG status -Continue diet as tolerated Anemia in chronic illness, microcytosis -Monitor H&H -Continue oral iron Acute GNR cystitis Chronic indwelling hernandez -Continue Zosyn -Follow up culture Case reviewed with Dr. Seth
[2021-02-10] MEDS: LIDOCAINE VISCOUS 2% SOLN 15 ML UDC PO SCH ×2 (16:47→20:59)
[2021-02-10] MEDS: MICONAZOLE 2% TOPICAL 15 GM TOP SCH ×2 (16:47→21:00)
[2021-02-10] MEDS: ASPIRIN 81 MG CHEWABLE TABLET FT SCH (21:00)
[2021-02-10] MEDS: ATORVASTATIN 80 MG TAB FT SCH (21:00)
[2021-02-10] MEDS: TRAZODONE 150 MG TAB FT SCH (21:00)
[2021-02-10] MEDS: DOXAZOSIN 2 MG TAB FT SCH (21:00)
[2021-02-11] MEDS: PIPER/TAZO/NS 3.375gm 3.375 GM/100 ML BAG IVPB SCH ×3 (01:13→16:07)
[2021-02-11] MEDS: SUCRALFATE 1GM/10ML UCUP FT SCH ×4 (06:00→17:18)
[2021-02-11] MEDS: LIDOCAINE VISCOUS 2% SOLN 15 ML UDC PO SCH (08:36)
[2021-02-11] MEDS: METOPROLOL TAR 50 MG TAB FT SCH (08:37)
[2021-02-11] MEDS: GLUCERNA 1.5 CAL 1,000 ML BOT FT SCH ×3 (08:40→17:00)
[2021-02-11] MEDS: FUROSEMIDE 20 MG TABLET PO SCH ×2 (08:41→17:00)
[2021-02-11] MEDS: ESCITALOPRAM 20 MG TAB FT SCH (08:41)
[2021-02-11] MEDS: CALCITONIN NASAL SPRAY 200 IU/DOSE NAS SCH (08:41)
[2021-02-11] MEDS: MICONAZOLE 2% TOPICAL 15 GM TOP SCH (08:41)
[2021-02-11] MEDS: GABAPENTIN 300 MG CAP FT SCH (08:41)
[2021-02-11] MEDS: ASCORBIC ACID 500 MG TABLET FT SCH ×2 (08:42→14:00)
[2021-02-11] MEDS: CLOPIDOGREL 75 MG TABLET FT SCH (08:42)
[2021-02-11] MEDS: AMLODIPINE 10 MG TAB FT SCH (08:42)
[2021-02-11] MEDS ORDERED: FLUCONAZOLE 100 MG TAB PO SCH (09:00)
[2021-02-11 11:17] LABS: Absolute Lymphocytes (CBC) 0.9 K/uL (0.7-4.9); Basophils % 0.8 % (0-1.3); Hematocrit 26.9 % (39.6-49.0); Lymphocytes % 12.1 % (15.3-44.8); MPV 9.9 fL (7.6-11.3); RBC Red Blood Cell Count 3.53 M/uL (4.33-5.43)
[2021-02-11 11:29] LABS: Phosphorus 4.1 mg/dL (2.5-4.9); Potassium 4.4 mmol/L (3.5-5.1)
[2021-02-11 11:58] LABS: Anisocytosis 1+; Blood Morphology Comment NOTED (NOT SEEN); Platelet Estimate DECR; White Blood Cell Scan OK (OK)
[2021-02-11 11:59] LABS: Elliptocytes 1+
[2021-02-11 12:00] LABS: Poikilocytosis 1+
[2021-02-11] MEDS ORDERED: NA CHLORIDE 0.9% 1,000 ML IV SCH (12:00)
--- NOTE | 2021-02-11 12:30 | P.PN ---
Date of Service: 02/11/21 Vital Signs Temp Pulse Resp BP Pulse Ox 97.7 F 60 18 146/63 H 97 02/11/21 12:00 02/11/21 12:00 02/11/21 12:00 02/11/21 12:00 02/11/21 12:00 Medications Acetaminophen (Acetaminophen 500 Mg Tab) 500 mg PO Q6H PRN PRN Reason: TEMP > 100' F OR MILD PAIN Albuterol Sulfate (Albuterol 2.5 Mg/3 Ml Neb [place]) 2.5 mg NEB [id number] PRN PRN Reason: SHORTNESS OF BREATH Amlodipine Besylate (Amlodipine 10 Mg Tab) 10 mg FT DAILY [facility] Last Admin: 02/11/21 08:42 Dose: Not Given Documented by: Ascorbic Acid (Ascorbic Acid 500 Mg Tablet) 2,000 mg FT TID [facility] Last Admin: 02/11/21 08:42 Dose: Not Given Documented by: Aspirin (Aspirin 81 Mg Chewable Tablet) 81 mg FT BEDTIME [facility] Last Admin: 02/10/21 21:00 Dose: Not Given Documented by: Atorvastatin Calcium (Atorvastatin 80 Mg Tab) 80 mg FT BEDTIME [facility] Last Admin: 02/10/21 21:00 Dose: Not Given Documented by: Calcitonin [place] (Calcitonin Nasal [place] 200 Iu/Dose) 1 sprays GEMA DAILY [facility] Last Admin: 02/11/21 08:41 Dose: Not Given Documented by: Clopidogrel Bisulfate (Clopidogrel 75 Mg Tablet) 75 mg FT DAILY [facility] Last Admin: 02/11/21 08:42 Dose: Not Given Documented by: Dextrose (D50w 25 Gm/50 Ml Syringe) 12.5 gm IV PRN PRN; Protocol PRN Reason: HYPOGLYCEMIA Doxazosin Mesylate (Doxazosin 2 Mg Tab) 2 mg FT BEDTIME [facility] Last Admin: 02/10/21 21:00 Dose: Not Given Documented by: Enteral Nutritional Formula (Glucerna 1.5 Higinio 1,000 Ml Bot) 360 ml FT QID [facility] Last Admin: 02/11/21 08:40 Dose: 360 ml Documented by: Escitalopram Oxalate (Escitalopram 20 Mg Tab) 30 mg FT DAILY [facility] Last Admin: 02/11/21 08:41 Dose: Not Given Documented by: Ferrous Sulfate (Ferrous Sulfate 220 Mg/5 Ml Elixir) 220 mg FT TID [facility] Last Admin: 02/11/21 08:39 Dose: Not Given Documented by: Fluconazole (Fluconazole 100 Mg Tab) 200 mg PO DAILY [facility]; Protocol Last Admin: 02/11/21 08:38 Dose: 200 mg Documented by: Furosemide (Furosemide 20 Mg Tablet) 20 mg PO BIDL [facility] Last Admin: 02/11/21 08:41 Dose: Not Given Documented by: Gabapentin (Gabapentin 300 Mg Cap) 300 mg FT BID [facility] Last Admin: 02/11/21 08:41 Dose: Not Given Documented by: Glucagon (Glucagon 1 Mg/Vial) 1 mg IM 1X PRN; Protocol PRN Reason: HYPOGLYCEMIA Piperacillin Sod/Tazobactam Sod (Zosyn 3.375 Gm/100 Ml Ns Ivpb) 3.375 gm in 100 mls @ 25 mls/hr IVPB Q8HR [facility]; Protocol Last Admin: 02/11/21 08:43 Dose: 100 mls Documented by: Sodium Chloride (Ns 1000 Ml Ivbag) 1,000 mls @ 100 mls/hr IV .Q10H [facility] Last Admin: 02/11/21 11:37 Dose: 1,000 mls Documented by: Insulin Human Lispro (Insulin Lispro 100 Unit/1 Ml) [facility]; Protocol Ipratropium [place] (Ipratropium Brom 0.5mg/2.5ml) 0.5 mg NEB [id number] PRN PRN Reason: SHORTNESS OF BREATH Lidocaine HCl (Lidocaine Viscous 2% Soln 15 Ml Udc) 15 ml PO BID [facility] Last Admin: 02/11/21 08:36 Dose: 15 ml Documented by: Metoprolol Tartrate (Metoprolol Tar 50 Mg Tab) 100 mg FT BID [facility] Last Admin: 02/11/21 08:37 Dose: 100 mg Documented by: Miconazole Nitrate (Miconazole 2% Topical 15 Gm) 1 appl TOP BID [facility] Last Admin: 02/11/21 08:41 Dose: Not Given Documented by: Morphine Sulfate (Morphine 4 Mg/Ml Syr) 4 mg IV Q4H PRN PRN Reason: Pain scale 8-10 (Severe) Ondansetron HCl (Ondansetron 4 Mg/2 Ml Vial) 4 mg IV Q4H PRN PRN Reason: NAUSEA / VOMITING Ondansetron HCl (Ondansetron 4 Mg (Odt) Tab) 4 mg FT Q8H PRN PRN Reason: NAUSEA / VOMITING Promethazine HCl (Promethazine 25 Mg Tablet) 25 mg FT Q6H PRN PRN Reason: NAUSEA / VOMITING Sodium Chloride (Flush Normal Saline 10 Ml) 10 ml IV BID [facility] Last Admin: 02/11/21 08:41 Dose: 10 ml Documented by: Sucralfate (Sucralfate 1gm/10ml Ucup) 0.1 gm FT Q6HR [facility] Last Admin: 02/11/21 11:39 Dose: Not Given Documented by: Tramadol HCl (Tramadol Hcl 50 Mg Tab) 50 mg FT Q4H PRN PRN Reason: Pain scale 5-7 (Moderate) Trazodone HCl (Trazodone 150 Mg Tab) 150 mg FT BEDTIME [facility] Last Admin: 02/10/21 21:00 Dose: Not Given Documented by: Microbiology Results 02/08/21 13:50 Clean Catch Urine [place] Count - Final BETWEEN 10,000 & 100,000 CFU/ML 02/08/21 13:50 Clean Catch Urine - Preliminary Serratia Marcescens 02/08/21 12:35 Blood - Blood Aerobic Blood Culture - Preliminary No growth in 24 hours. 02/08/21 12:35 Blood - Blood Anaerobic Blood Culture - Preliminary No growth in 24 hours. 02/08/21 12:45 Blood - Blood Aerobic Blood Culture - Preliminary No growth in 24 hours. 02/08/21 12:45 Blood - Blood Anaerobic Blood Culture - Preliminary No growth in 24 hours. Assessment/ Plan: Nephrology Progress Note Feeling worse today but not specific. is concerned about his condition and is requesting a CXR. No chest pain or dyspnea No acute events overnight Vitals, medications blood work and imaging reviewed in the chart General: In no apparent distress, Cooperative HEENT: Atraumatic Neck: Supple Respiratory: Clear to auscultation bilaterally Cardiovascular: Normal pulses, Regular rate/rhythm Gastrointestinal: Soft and benign, Non-distended Musculoskeletal: No clubbing, No contractures, Other (Sarcopenia) Integumentary: No rashes, No cyanosis Neurological: Normal speech Laboratory Data (last 24 hrs) 02/08/21 12:35: PT 12.9 H, INR 1.12 02/08/21 12:35: WBC 7.10, Hgb 7.0 L, Hct 21.4 L, Plt Count 159 02/08/21 12:35: Sodium 143, Potassium 4.3, BUN 78 H, Creatinine 1.25, Glucose 124 H, Magnesium 3.2 H, Total Bilirubin 0.5, AST 30, ALT 94 H, Alkaline Phosphatase 107 Imagings Data: EXAM DESCRIPTION: RAD - Chest Single View - 02/08/2021 1:31 pm CLINICAL HISTORY: ams COMPARISON: Chest Single View dated 12/19/2020; Chest Single View dated 12/17/2020; Chest Single View dated 12/15/2020; Chest Single View dated 12/01/2020; Abdomen Pelvis W Contrast dated 12/01/2020 FINDINGS: Hazy basilar opacities including more focal type retrocardiac opacities. Part of the left hemidiaphragm is obscured. Cardiomegaly.No acute osseous abnormality. Difficult to exclude small effusions. IMPRESSION: Mild basilar opacities may represent a combination of layering pleural effusions, atelectasis, and/or pneumonia Conclusions/Impression: CKD III with proteinuria Proteinuria -No NSAIDs -Continue furosemide HTN with CKD -Continue Amlodipine -Continue Metoprolol and Doxazosin DM II with CKD -RED -Continue furosemide Moderate Malnutrition PEG status -Continue diet as tolerated Anemia in chronic illness, microcytosis -Monitor H&H -Continue oral iron Acute S. marcescens cystitis Chronic indwelling hernandez -Continue Zosyn Case reviewed with Dr. Seth
--- NOTE | 2021-02-11 13:38 | P.PN ---
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 Will hold his discharge today and reassess in the morning. She said his leg fell swollen and his abdomen felt distended although we did not notice any fluid on exam. Reassess in the morning with labs and physical exam. Review of Systems 10-point ROS is otherwise unremarkable Physical Examination - Vital Signs Reviewed - Physical Exam General: Alert, In no apparent distress, Cooperative Respiratory: Clear to auscultation bilaterally, Normal air movement Cardiovascular: Regular rate/rhythm, Normal S1 S2 Gastrointestinal: Normal bowel sounds, Soft and benign, Non-distended, No tenderness, Other (Peg tube is in place) Musculoskeletal: No clubbing, No swelling, No tenderness Neurological: Sensation intact, Cranial nerves 3-12 intact, Normal affect, Other (Generalized weakness) Assessment & Plan - Problems (Diagnosis) (1) Acute blood loss anemia Current Visit: No Status: Acute (2) Depression with generalized weakness Current Visit: No Status: Acute (3) Diabetes Current Visit: No Status: Acute (4) History of GI bleed Current Visit: No Status: Acute (5) Pneumonia Current Visit: No Status: Acute (6) Urinary tract infection Current Visit: No Status: Acute (7) Hypertension Onset Date: 11/05/16 Current Visit: No Status: Chronic - Plan Plan: 1. Patient is doing well. Will monitor patient's status and will repeat labs 2. Continue with IV antibiotics; changed to orals 3. Continue with pain control 4. PEG tube feedings as tolerated 5. Hemoglobin remains stable 6. Continue to turn and wound care 7. Repeat labs including CBC and renal function in a.m. 8. GI and DVT prophylaxis
[2021-02-11] MEDS ORDERED: LOPERAMIDE HCL 1 MG/5 ML UCUP FT PRN (13:39)
[2021-02-11 16:28] VITALS: BP 174/75; TEMP 98.1
[2021-02-11 18:12] VITALS: O2SAT 100
--- NOTE | 2021-02-16 21:37 | P.DS ---
Discharge Date: 02/11/21 Disposition: DC HOME/HOME HEALTH CARE Discharge Condition: GOOD Reason for Admission: Severe anemia; UTIs; toxic encephalopathy - Problems (1) Acute blood loss anemia Status: Acute (2) Depression Status: Acute (3) Diabetes Status: Acute (4) History of GI bleed Status: Acute (5) Pneumonia Status: Acute (6) Urinary tract infection Status: Acute (7) Hypertension Onset Date: 11/05/16 Status: Chronic Brief History of Present Illness: Patient is a 65-year-old gentleman who came into the hospital with altered mental status. Patient's takes care of him. Patient was found have a UTI and a pneumonia. Patient also was severely anemic. Patient be admitted to the hospital for blood transfusion and antibiotic therapy. Patient has been to the hospital on numerous occasions. 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 She does just about everything for him. Patient will need admission for further evaluation. Hospital Course: Patient is clinically doing well. Patient is wiped as I really want to take them all. I had a long discussion with the and we talked about her knee was complaints. Spoke with commercial marketing specialist and they were agreeable with discharge home as well. Patient continues to do well at this time. Vital Signs/Physical Exam: Temp Pulse Resp BP Pulse Ox 98.1 F 58 18 174/75 H 100 02/11/21 16:00 02/11/21 16:00 02/11/21 16:00 02/11/21 16:00 02/11/21 16:00 General: Alert, In no apparent distress, Oriented x3 Laboratory Data at Discharge: WBC 7.60 K/uL (4.3-10.9) 02/11/21 11:06 Hgb 9.0 g/dL (13.6-17.9) L 02/11/21 11:06 Hct 26.9 % (39.6-49.0) L 02/11/21 11:06 Plt Count 121 K/uL (152-406) L 02/11/21 11:06 PT 13.0 SECONDS (9.5-12.5) H 02/09/21 05:33 INR 1.13 02/09/21 05:33 Sodium 143 mmol/L (136-145) 02/11/21 11:06 Potassium 4.4 mmol/L (3.5-5.1) 02/11/21 11:06 BUN 67 mg/dL (7-18) H 02/11/21 11:06 Creatinine 1.38 mg/dL (0.55-1.3) H 02/11/21 11:06 Glucose 111 mg/dL (74-106) H 02/11/21 11:06 Phosphorus 4.1 mg/dL (2.5-4.9) 02/11/21 11:06 Magnesium 3.0 mg/dL (1.8-2.4) H 02/11/21 11:06 Total Bilirubin 0.7 mg/dL (0.2-1.0) 02/09/21 05:33 AST 33 U/L (15-37) 02/09/21 05:33 ALT 82 U/L (12-78) H 02/09/21 05:33 Alkaline Phosphatase 101 U/L (45-117) 02/09/21 05:33 Home Medications: Aspirin [Adult Aspirin Regimen] 81 mg FT BEDTIME 06/04/20 Atorvastatin Calcium [Lipitor] 80 mg FT BEDTIME 06/04/20 Amlodipine [Norvasc*] 10 mg FT DAILY 07/16/20 Clopidogrel Bisulfate [Plavix*] 75 mg FT DAILY 07/16/20 Escitalopram [Lexapro*] 30 mg FT DAILY 07/16/20 Gabapentin 300 mg FT BID 07/16/20 Doxazosin [Cardura*] 2 mg FT BEDTIME 30 Days #30 tab 12/08/20 Glucerna 1.5 [place] 360 ml FT QID #10 bot 12/08/20 Insulin Lispro [Admelog] See Protocol SQ SEECOM #1 vial 12/08/20 Acetaminophen [Acetaminophen Extra Strength] 1 tab FT PRN PRN 12/16/20 Ascorbic Acid [Vitamin C] 2,000 mg FT TID 12/16/20 Calcitonin [Miacalcin Nasal [place]*] 1 spray IN DAILY 12/16/20 Ondansetron HCl [Zofran] 1 tab FT Q8H PRN 12/16/20 Promethazine HCl 1 tab FT Q6H PRN 12/16/20 Sucralfate [Carafate] 100 mg FT Q6H 12/16/20 Tramadol HCl [Ultram] 50 mg FT Q4H PRN 12/16/20 Trazodone HCl 150 tab FT BEDTIME 12/16/20 Furosemide [Lasix*] 20 mg PO BIDL #60 tab 12/21/20 Ferrous Sulfate [Ferrous Sulfate Elixir*] 5 ml FT TID 02/09/21 Metoprolol Tartrate [Lopressor] 100 mg FT BID 02/09/21 Argin/Glut/Cahmb/Collag/Mv-Min [Bryan Packet] 1 each PO BID #60 powd.pack 02/11/21 Cefdinir [Omnicef] 300 mg PO BID #14 capsule 02/11/21 Lidocaine Viscous 2% Soln [Xylocaine Viscous Oral 2%*] 15 ml PO BID #300 udc 02/11/21 Miconazole Cream [Monistat-Derm*] 1 appl TOP BID #1 tube 02/11/21 Minocycline HCl 100 mg PO BID #14 capsule 02/11/21 Mupirocin Oint [Bactroban 2% Ointment] 15 gm TP BID #1 tube 02/11/21 New Medications: Mupirocin Oint [Bactroban 2% Ointment] 15 gm TP BID #1 tube Argin/Glut/Cahmb/Collag/Mv-Min [Bryan Packet] 1 each PO BID #60 powd.pack Minocycline HCl 100 mg PO BID #14 capsule Miconazole Cream [Monistat-Derm*] 1 appl TOP BID #1 tube Cefdinir [Omnicef] 300 mg PO BID #14 capsule Lidocaine Viscous 2% Soln [Xylocaine Viscous Oral 2%*] 15 ml PO BID #300 udc Physician Discharge Instructions: OK TO DC IV AND DC HOME and notify home health company regarding discharge FOLLOW-UP WITH PRIMARY CARE PROVIDER IN 1-2 WEEKS FOLLOW-UP WITH Nephrology in 2-4 weeks RETURN TO THE ER IF symptoms worsen CALL or TEXT DR. PABLO AT [phone] IF ANY QUESTIONS REGARDING HOSPITAL STAY. PLEASE CALL THE FLOOR AT [phone] IF ANY MEDICATION OR NURSING QUESTIONS. Diet: PEG tube Activity: Turned every 2 hr Followup: Kali Yadav, [ACTIVE - CAN ADMIT] - Aidan Rios MD [Primary Care Provider] - Time spent managing pt's care (in minutes): 35
== END 2021-02-11 18:15 | disposition home health service (06) | DRG 193 ==
LOC: ER 11:41 → ERHOLD 17:18 → 2ND 19:46
PROVIDERS: ADMIT Hospitalist; ATTEND Hospitalist
PROC: 30233N1 Transfusion of Nonautologous Red Blood Cells into Peripheral Vein, Percutaneous Approach (ICD-10-PCS; principal; 2021-02-08)
DX: J18.9 Pneumonia, unspecified organism (principal); I50.31 Acute diastolic (congestive) heart failure; G92 Toxic encephalopathy; N30.00 Acute cystitis without hematuria; E44.0 Moderate protein-calorie malnutrition; Z68.1 Body mass index [BMI] 19.9 or less, adult; D62 Acute posthemorrhagic anemia; J44.0 Chronic obstructive pulmonary disease with (acute) lower respiratory infection; I13.0 Hypertensive heart and chronic kidney disease with heart failure and stage 1 through stage 4 chronic kidney disease, or unspecified chronic kidney disease; N18.30 Chronic kidney disease, stage 3 unspecified; E11.22 Type 2 diabetes mellitus with diabetic chronic kidney disease; L89.211 Pressure ulcer of right hip, stage 1; D50.9 Iron deficiency anemia, unspecified; I25.10 Atherosclerotic heart disease of native coronary artery without angina pectoris; E78.5 Hyperlipidemia, unspecified; F32.9 Major depressive disorder, single episode, unspecified; D63.8 Anemia in other chronic diseases classified elsewhere; G20 Parkinson's disease; I25.2 Old myocardial infarction; R44.1 Visual hallucinations; Z95.1 Presence of aortocoronary bypass graft; Z88.8 Allergy status to other drugs, medicaments and biological substances; Z86.73 Personal history of transient ischemic attack (TIA), and cerebral infarction without residual deficits; Z93.1 Gastrostomy status; Z87.891 Personal history of nicotine dependence; Z79.02 Long term (current) use of antithrombotics/antiplatelets; Z79.899 Other long term (current) drug therapy; Z79.82 Long term (current) use of aspirin; Z79.4 Long term (current) use of insulin; Z91.040 Latex allergy status; Z20.822 Contact with and (suspected) exposure to COVID-19
CPT/HCPCS: 36415; 51702; 70450; 71045; 80048; 80053; 80076; 81003; 81015; 82607; 82728; 82746; 82947; 83540; 83605; 83735; 84100; 84145; 84439; 84443; 84484; 85025; 85044; 85610; 86850; 86900; 86901; 87040; 87077; 87086; 87088; 87186; 93005; 96365; 97110; 97161; 97165; 97530; 99285; J2543; J7030; J7040; J7050; P9016; U0003

== ENCOUNTER 2021-02-16 15:46 | Inpatient (IN) | payer OTHER ==
--- OUTSIDE RECORDS SUMMARY | 2021-02-16 15:48 | XMS REPORT | Continuity of Care Document ---
:[address] [facility] t Address [address] [place] [address] Care Team Providers Name Role Phone Charly [...] Family history of [facility] [place]'s disease Physici ans Mother Family history of [employer] [facility] [place] diabetes mellitus Physici ans Mother Family history of [employer] [facility] [place] hypertension Physicians Mother Family history of [employer] [facility] [place] malignant neoplasm Physic ians Father Family history [...] Start Date Stop Date Source Ex-smoker (finding) [place] [facility] Physicians Medications Ordered Filled Start Stop Current [...] Source Systolic blood 2019-09-29 155 mm[Hg] Location: [facility] 16:23:00 Position: [place] [facility] Sitting Diastolic blood 2019-09-29 68 mm[Hg] Location: [facility] 16:23:00 Position: [place] [facility] Sitting Body height 2019-09-29 72 [in_us] [facility] :23:00 [place] [facility] Weight 2019-09-29 163 [lb_av] [facility] :23:00 [place] [facility] Body mass index 2019-09-29 22.11 kg/m2 [place] f (BMI) [Ratio] 16:23:00 [place] [facility] Body temperature 2019-09-29 97.9 [degF] Method: Oral [facility] 16:23:00 [place] [facility] Heart Rate 2019-09-29 75 /min [facility] :23:00 [place] [facility] Procedures Procedure Date / Time Performing Source Performed Clinician [B] CMP 2019-09-28 [facility] 00:00:00 [place] [facility] [B] CBC 2019-09-28 [facility] 00:[facility]00 [place] [facility] History of Cyst excision [facility]icians History of Debridement [facility] History of Hand Surgery [facility] History of Knee arthroscopy [facility]icians History of University of Esophagogastroduodenoscopy [place] [facility] History of Colonoscopy [facility] History of Surgical removal of U niversity of foreign body [place] [facility] History of CABG [facility] Encounters Start End Encounter Admission Attending Care Care Encounter Source Date/Time Date/Time Type Type Clinicians Facility Department ID 2020-12-27 2020-12-27 Refill Charly AKMARLEEN [id number] 00:00:00 00:00:00 Derrick PRIMARY [id number] CARE [id number] [place] [id number] 2020-12-16 2020-12-16 Orders Doctor ALPHONSE [id number] 00:00:00 00:00:00 Only UnassignedHERNANDO [id number] [facility] [id number] 2020-11-30 2020-11-30 Patient Jatin Douglas [id number] 00:00:00 00:00:00 Outreach Hugh Mcnally [id number] [place] [id number] 2020-11-22 2020-11-22 Nurse ALPHONSE Villareal [id number] 00:00:00 00:00:00 Triage Liane VILLAGOMEZ [id number] [facility] [id number] 2020-11-16 2020-11-16 Orders Doctor ALPHONSE [id number] 00:00:00 00:00:00 Only UnassignedHERNANDO [id number] [place] [facility] [id number] 2020-11-11 2020-11-11 Telephone Charly [facility] [id number] 00:00:00 00:00:00 Derrick PRIMARY [id number] CARE [id number] [facility] [id number] 2020-11-10 2020-11-10 Transition Jatin Campbell [id number] 00:00:00 00:00:00 of Care Nathalia Mcnally [id number] [place] [id number] 2020-11-10 2020-11-10 Refill Laurie [facility] [id number] 00:00:00 00:00:00 Haris PRIMARY [id number] [place] [facility] [id number] PAVILLION [id number] 2019-09-29 2019-09-29 Appointmen ELMO [facility] for [id number] 15:00:00 15:00:00 t; IGOR BORREGO M.D. [facility] [place] COSTA M.D. Failure - [facility]ic i [place] ans Results This patient has no known results.
[2021-02-16 16:55] LABS: Absolute Lymphocytes (CBC) 0.9 K/uL (0.7-4.9); Hematocrit 24.8 % (39.6-49.0); Lymphocytes % 17.6 % (15.3-44.8); MPV 11.1 fL (7.6-11.3); RBC Red Blood Cell Count 3.18 M/uL (4.33-5.43)
--- NOTE | 2021-02-16 16:55 | RAD REPORT ---
EXAM DESCRIPTION: RAD - Chest Single View - 02/16/2021 4:29 pm CLINICAL HISTORY: SOB COMPARISON: Portable February 08 TECHNIQUE: AP portable chest image was obtained 02/16/2021 4:29 pm . FINDINGS: Cardiomegaly is present with vascular engorgement. Patient has a prominent baseline inters titial opacification pattern. Sternotomy wires are in place. Increased opacification is seen in the r ight hemithorax from pleural effusion with infiltrate and/ or atelectasis in the lower right lung fie ld. Cardiomegaly is present. No pneumothorax. No acute bony abnormality seen. No acute aortic finding s suspected. IMPRESSION: New right pleural effusion with infiltrate and/ or atelectasis in the lower right lung f ield. Cardiomegaly and vascular engorgement are present. Findings are potentially all failure or volume overload. Pneumonia etiology cannot be excluded.
[2021-02-16 16:56] LABS: Protime INR 1.07
[2021-02-16] MEDS ORDERED: ONDANSETRON 4 MG/2 ML VIAL ONE (17:01)
[2021-02-16] MEDS ORDERED: FAMOTIDINE 20 MG/2 ML VIAL IV ONE (17:01)
[2021-02-16 17:09] LABS: Anisocytosis 1+; Blood Morphology Comment NOTED (NOT SEEN); Platelet Estimate DECR; White Blood Cell Scan OK (OK)
[2021-02-16 17:18] LABS: Albumin 2.7 g/dL (3.4-5.0); Bilirubin Direct 0.1 mg/dL (0-0.2); Bilirubin Total 0.2 mg/dL (0.2-1.0); Magnesium 3.1 mg/dL (1.8-2.4); Potassium 6.1 mmol/L (3.5-5.1); Protein, Total 6.2 g/dL (6.4-8.2); Troponin (Emerg Dept Use Only) 0.02 ng/mL (0.0-0.045)
--- NOTE | 2021-02-16 18:04 | RAD REPORT ---
EXAM DESCRIPTION: US - Extrem Venous W Compress Jg - 02/16/2021 5:12 pm CLINICAL HISTORY: SWELLING, leg pain COMPARISON: None. TECHNIQUE: Real-time sonographic evaluation of the bilateral lower extremity common femoral, superfi cial femoral, popliteal and posterior tibial veins was performed. FINDINGS: Normal compressibility, flow augmentation, phasic flow and spontaneous flow are identified in the left and right lower extremity common femoral, superficial femoral, popliteal and posterior t ibial veins. No intraluminal filling defects seen. IMPRESSION: No DVT in either lower extremity.
--- NOTE | 2021-02-16 18:41 | ER ---
Nurse's Notes [facility] Name: Mumtaz Anderson Age: 65 yrs Sex: Male : 1955 Arrival Date: 02/16/2021 Time: 16:13 Bed 23 Private MD: Diagnosis: Bradycardia, unspecified;Hyperkalemia;Acute pulmonary edema;Unspecified combined systolic (congestive) and diastolic (congestive) heart failure Presentation: 02/16 16:14 Chief complaint: EMS states: "pt's is reporting that the pt has had diarrhea since jd3 he was discharged last Saturday from this hospital. is reporting that it has gotten progressively worse throughout the week and has started to result in dehydration and nausea. is reporting some bloating in his stomach and swelling in his upper legs.". Coronavirus screen: At this time, the client does not indicate any symptoms associated with coronavirus-19. Ebola Screen: Patient negative for fever greater than or equal to 101.5 degrees Fahrenheit, and additional compatible Ebola Virus Disease symptoms. Initial Sepsis Screen: Does the patient meet any 2 criteria? No. Patient's initial sepsis screen is negative. Does the patient have a suspected source of infection? No. Patient's initial sepsis screen is negative. Risk Assessment: Do you want to hurt yourself or someone else? Patient reports no desire to harm self or others. Onset of symptoms was February 11, 2021. 16:14 Method Of Arrival: EMS: [facility] jd3 16:14 Acuity: VIDAL 3 jd3 Historical: - Allergies: 16:16 Latex, Natural Rubber; jd3 16:16 Nexium D; jd3 16:16 spironolactone; jd3 - Home Meds: 16:16 aspirin 81 mg Oral chew [Active]; Carafate Oral [Active]; clopidogrel 75 mg Oral tab 1 jd3 tab once daily [Active]; escitalopram oxalate 20 mg Oral tab 1 tab once daily [Active]; ferrous sulfate 325 mg (65 mg iron) Oral tab three times a day [Active]; calcitrol [Active]; Lactobacillus acidophilus-pectin Oral [Active]; Lantus Sub-Q [Active]; doxazosin Oral [Active]; metformin 500 mg Oral tab 1 tab 2 times per day [Active]; Lasix 40 mg Oral tab 1 tab once daily [Active]; Metoprolol Tartrate Oral [Active]; Norvasc Oral [Active]; Toprol XL 50 mg Oral Tb24 1 tab once daily [Active]; Novolin 70/30 [place] Sub-Q [Active]; gabapentin Oral [Active]; nystatin Topical [Active]; atorvastatin 80 mg Oral tab 1 tab once daily [Active]; Trazodone Oral [Active]; Tylenol [Active]; Zofran Oral [Active]; - PMHx: 16:16 Diabetes - IDDM; Anemia; Myocardial infarction; Parkinsons; COPD; Seizures; jd3 Hypertension; CHF; CAD; Pneumonia; - PSHx: 16:16 Coronary artery bypass graft; hip; jd3 - Immunization history:: Adult Immunizations up to date, Client reports receiving the 2nd dose of the Covid vaccine. - Social history:: Smoking status: Patient denies any tobacco usage or history of. Screenin:44 Abuse screen: Denies threats or abuse. Denies injuries from another. tr6 17:17 Nutritional screening: No deficits noted. Tuberculosis screening: No symptoms or risk jd3 factors identified. Fall Risk Ambulatory Aid- None/Bed Rest/Nurse Assist (0 pts). Gait- Normal/Bed Rest/Wheelchair (0 pts) Mental Status- Oriented to own ability (0 pts). Total Walter Fall Scale indicates No Risk (0-24 pts). Assessment: 16:30 General: Appears in no apparent distress. comfortable, Behavior is calm, cooperative, jd3 appropriate for age, Reports fatigue for 2-3 days. Pain: Complains of pain in abdomen Quality of pain is described as aching, crampy. Neuro: Level of Consciousness is awake, alert, obeys commands, Oriented to person, place, time, situation. Cardiovascular: Denies chest pain, Capillary refill < 3 seconds Patient's skin is warm and dry. Rhythm is irregular. Respiratory: Airway is patent Respiratory effort is even, unlabored, Respiratory pattern is regular, symmetrical, Denies shortness of breath Parent/caregiver reports the patient having cough that is productive. GI: Abdomen is round non-distended, Abdomen is tender to palpation in right lower quadrant and left lower quadrant Reports diarrhea, nausea, vomiting. : No signs and/or symptoms were reported regarding the genitourinary system. EENT: No signs and/or symptoms were reported regarding the EENT system. Derm: Skin is intact, Skin is dry, Skin is pale, Skin temperature is warm. Musculoskeletal: No signs and/or symptoms reported regarding the musculoskeletal system. 17:13 Reassessment: Patient appears in no apparent distress at this time. No changes from j previously documented assessment. Patient and/or family updated on plan of care and expected duration. Pain level reassessed. Patient is alert, oriented x 3, equal unlabored respirations, skin warm/dry/pink. 18:05 Reassessment: Patient appears in no apparent distress at this time. Patient and/or jd3 family updated on plan of care and expected duration. Pain level reassessed. Patient is alert, oriented x 3, equal unlabored respirations, skin warm/dry/pink. Vital Signs: 16:18 BP 133 / 56; Pulse 47; Resp 14 S; Temp 98.4(TE); Pulse Ox 100% on R/A; Weight 63.5 kg jd3 (R); Height 6 ft. 0 in. (182.88 cm) (R); Pain 5/10; 17:13 BP 132 / 52; Pulse 39; Resp 18 S; Pulse Ox 100% on R/A; jd3 18:30 BP 136 / 65; Pulse 37; Resp 17 S; Pulse Ox 100% on 4 lpm NC; jd3 19:00 BP 127 / 56; Pulse 57; Resp 18; Pulse Ox 99% ; ea 20:47 BP 141 / 58; Pulse 64; Resp 18; Pulse Ox 100% on R/A; ea 16:18 Body Mass Index 18.99 (63.50 kg, 182.88 cm) jd3 ED Course: 16:13 Patient arrived in ED. jd3 16:14 Homer Colon PA is PHCP. cp 16:14 Jax Lopes MD is Attending Physician. cp 16:16 Triage completed. jd3 16:21 Arm band placed on. jd3 16:30 XRAY Chest (1 view) In Process Unspecified. EDMS 16:37 Axel Donaldson, ANDRADE is Primary Nurse. jd3 16:44 No provider procedures requiring assistance completed. Inserted saline lock: 18 gauge tr6 in left antecubital area, using aseptic technique. Blood collected. 17:12 US Extremity Venous W Compression Jg In Process Unspecified. EDMS 17:[address] on arrival to ER G tube in place on pt arrival to ER. jd3 17:17 Patient has correct armband on for positive identification. Placed in gown. Bed in low jd3 position. Call light in reach. Side rails up X2. Adult w/ patient. monitor worker on. Pulse ox on. NIBP on. 18:39 Jose Zambrano FNP-C is Hospitalizing Provider. cp 20:47 Patient admitted, IV remains in place. ea 23:29 BMP Sent. ea 02/17 05:16 Matthew Michelle DO is Hospitalizing Provider. la1 Administered Medications: 02/16 16:46 Drug: Zofran (Ondansetron) 4 mg Route: IVP; Site: left antecubital; jd3 17:45 Follow up: Response: No adverse reaction jd3 16:46 Drug: Pepcid (famotidine) 20 mg Route: IVP; Site: left antecubital; jd3 17:45 Follow up: Response: No adverse reaction jd3 19:16 Drug: Albuterol - atroVENT (ipratropium) (3:1) (2.5 mg - 0.5 mg) 3 ml Route: Nebulizer; jd3 19:16 Drug: D50W 50 ml Route: IVP; Site: left antecubital; jd3 19:16 Drug: Calcium Gluconate 1 grams Route: IVPB; Infused Over: 60 mins; Site: left jd3 antecubital; 19:17 Drug: Lasix (furosemide) 40 mg Route: IVP; Site: left antecubital; jd3 19:17 Drug: Lasix (furosemide) 40 mg Route: IVP; Site: left antecubital; jd3 19:18 Drug: Insulin Regular Human 5 units {Co-Signature: bs2 (Kayleigh Richardson RN).} Route: IVP; jd3 Site: left antecubital; 19:40 Drug: Kayexalate (polystyrene) 45 grams Route: PO; ea Outcome: 18:41 Decision to Hospitalize by Provider. cp 20:47 Admitted to ER Hold. Please see [facility] for further documentation. ea 20:47 Condition: stable 20:47 Instructed on the need for admit, Demonstrated understanding of instructions. 02/17 16:22 Patient left the ED. aa5 Signatures: Dispatcher [employer] EDMS Meghan Singh, RN RN aa5 Jose Zambrano, INFORMATION SYSTEMS ADMINISTRATOR-C INFORMATION SYSTEMS ADMINISTRATOR-Cla1 Homer Colon PA PA cp Antunez, Elena, RN RN Axel Meyers RN RN jd3 Brina Newberry RN RN tr6 Kayleigh Richardson RN bs2 Corrections: (The following items were deleted from the chart) 02/16 19:18 19:16 Calcium Gluconate 1 grams IVPB in right antecubital over 60 mins jd3 jd3 19:18 19:16 D50W 50 ml IVP in right antecubital jd3 jd3
--- NOTE | 2021-02-16 18:41 | EDPHYS ---
Physician Documentation [facility] Name: Mumtaz Anderson Age: 65 yrs Sex: Male : 1955 Arrival Date: 02/16/2021 Time: 16:13 Bed 23 Private MD: ED Physician Jax Lopes HPI: 02/16 16:20 This 65 yrs old Male presents to ER via EMS with complaints of Diarrhea. cp 16:20 The patient presents to the emergency department with vomiting, that is intermittent, cp started today, diarrhea, that is continuous, for past 6 days. Possible causes: unknown. Associated signs and symptoms: Pertinent positives: shortness of breath, Pertinent negatives: abdominal pain, fever, chest pain. 16:20 The patient has been recently been admitted at [facility], was cp discharged last week, reports patient with diarrhea since discharge. Historical: - Allergies: 16:16 Latex, Natural Rubber; jd3 16:16 Nexium D; jd3 16:16 spironolactone; jd3 - Home Meds: 16:16 aspirin 81 mg Oral chew [Active]; Carafate Oral [Active]; clopidogrel 75 mg Oral tab 1 jd3 tab once daily [Active]; escitalopram oxalate 20 mg Oral tab 1 tab once daily [Active]; ferrous sulfate 325 mg (65 mg iron) Oral tab three times a day [Active]; calcitrol [Active]; Lactobacillus acidophilus-pectin Oral [Active]; Lantus Sub-Q [Active]; doxazosin Oral [Active]; metformin 500 mg Oral tab 1 tab 2 times per day [Active]; Lasix 40 mg Oral tab 1 tab once daily [Active]; Metoprolol Tartrate Oral [Active]; Norvasc Oral [Active]; Toprol XL 50 mg Oral Tb24 1 tab once daily [Active]; Novolin 70/30 [place] Sub-Q [Active]; gabapentin Oral [Active]; nystatin Topical [Active]; atorvastatin 80 mg Oral tab 1 tab once daily [Active]; Trazodone Oral [Active]; Tylenol [Active]; Zofran Oral [Active]; - PMHx: 16:16 Diabetes - IDDM; Anemia; Myocardial infarction; Parkinsons; COPD; Seizures; jd3 Hypertension; CHF; CAD; Pneumonia; - PSHx: 16:16 Coronary artery bypass graft; hip; jd3 - Immunization history:: Adult Immunizations up to date, Client reports receiving the 2nd dose of the Covid vaccine. - Social history:: Smoking status: Patient denies any tobacco usage or history of. ROS: 16:25 Constitutional: Positive for poor PO intake, Negative for body aches, fever. cp 16:25 Eyes: Negative for injury, pain, redness, and discharge. cp 16:25 ENT: Negative for ear pain, sore throat, difficulty swallowing, difficulty handling secretions. 16:25 Cardiovascular: Positive for edema, Negative for chest pain. 16:25 Respiratory: Positive for cough, shortness of breath. 16:25 Abdomen/GI: Positive for abdominal pain, nausea and vomiting, diarrhea, anorexia, Negative for constipation, black/tarry stool, rectal bleeding. 16:25 Skin: Negative for rash. 16:25 Neuro: Positive for weakness, Negative for altered mental status, headache. 16:25 All other systems are negative. Exam: 16:30 Constitutional: The patient appears in no acute distress, alert, awake, non-toxic, well cp developed, frail. 16:30 Head/Face: Normocephalic, atraumatic. cp 16:30 Eyes: Periorbital structures: appear normal, Conjunctiva: normal, no exudate, no injection, Sclera: no appreciated abnormality, Lids and lashes: appear normal, bilaterally. 16:30 ENT: External ear(s): are unremarkable, Nose: is normal, Mouth: Lips: dry, Oral mucosa: moist, Posterior pharynx: Airway: no evidence of obstruction, patent. 16:30 Neck: ROM/movement: is normal, is supple, without pain, no range of motions limitations, no meningismus. 16:30 Chest/axilla: Inspection: normal, Palpation: is normal, no crepitus, no tenderness. 16:30 Cardiovascular: Rate: bradycardic, Rhythm: irregular, JVD: is not appreciated. 16:30 Respiratory: the patient does not display signs of respiratory distress, Respirations: labored breathing, is not present, shallow respirations, that is mild, Breath sounds: decreased breath sounds, that are moderate, throughout, stridor, is not appreciated, wheezing: is not appreciated. 16:30 Abdomen/GI: Inspection: abdomen appears normal, Bowel sounds: active, all quadrants, Palpation: soft, in all quadrants, nontender, in all quadrants. 16:30 Skin: no rash present. 16:30 Neuro: Orientation: to person, place \T\ time. Mentation: able to follow commands, slow to respond. 16:40 ECG was reviewed by the Attending Physician. cp 18:44 ECG was reviewed by the Attending Physician. cp Vital Signs: 16:18 BP 133 / 56; Pulse 47; Resp 14 S; Temp 98.4(TE); Pulse Ox 100% on R/A; Weight 63.5 kg jd3 (R); Height 6 ft. 0 in. (182.88 cm) (R); Pain 5/10; 17:13 BP 132 / 52; Pulse 39; Resp 18 S; Pulse Ox 100% on R/A; jd3 18:30 BP 136 / 65; Pulse 37; Resp 17 S; Pulse Ox 100% on 4 lpm NC; jd3 19:00 BP 127 / 56; Pulse 57; Resp 18; Pulse Ox 99% ; ea 20:47 BP 141 / 58; Pulse 64; Resp 18; Pulse Ox 100% on R/A; ea 16:18 Body Mass Index 18.99 (63.50 kg, 182.88 cm) jd3 MDM: 16:20 Patient medically screened. cp 17:00 Differential diagnosis: gastritis, diverticulitis, viral gastroenteritis, cp gastroenteritis, sepsis, dehydration, cardiac arrythmia, electrolyte abnormality. 19:00 Data reviewed: vital signs, nurses notes, lab test result(s), EKG, radiologic studies, cp plain films. 19:00 Test interpretation: by ED physician or midlevel provider: ECG, plain radiologic cp studies. Counseling: I had a detailed discussion with the patient and/or guardian regarding: the historical points, exam findings, and any diagnostic results supporting the discharge/admit diagnosis, lab results, radiology results, the need for further work-up and treatment in the hospital. Physician consultation: Jose LAYNE was contacted at 18:30, regarding admission, to the telemetry unit. patient's condition, and will see patient in ED, shortly. 02/16 16:15 Order name: Basic Metabolic Panel; Complete Time: 17:27 cp 02/16 17:27 Interpretation: Normal except: K 6.1; GLUC 141; BUN 80; CRE 1.46; GFR 49; CA 8.3. cp 08/05 16:15 Order name: CBC with Diff; Complete Time: 17:27 cp 08/05 17:28 Interpretation: Normal except: RBC 3.18; HGB 8.1; HCT 24.8; MCV 78.0; MCH 25.5; PLT cp 101; RDW 20.6; MPV 11.1. 08/ 16:15 Order name: LFT's; Complete Time: 17:27 cp 08/05 17:31 Interpretation: Normal except: AST 67; ALT 106; TP 6.2; ALB 2.7; A/G 0.8. cp 08/05 16:15 Order name: Magnesium; Complete Time: 17:27 cp 08/05 17:46 Interpretation: Abnormal: MG 3.1. cp 08/05 16:15 Order name: NT PRO-BNP; Complete Time: 17:27 cp 08/05 17:46 Interpretation: Abnormal: NT PRO-BNP 54201. cp 08/05 16:15 Order name: PT-INR; Complete Time: 17:27 cp 08/05 17:56 Interpretation: Reviewed. cp / 16:15 Order name: Troponin (emerg Dept Use Only); Complete Time: 17:27 cp / 17:47 Interpretation: TROPED 0.02; Reviewed. cp 08/05 16:19 Order name: Occult Blood cp 08/05 16:19 Order name: Ova And Parasites cp 08/05 16:19 Order name: Rotavirus Antigen cp 08/ 16:19 Order name: Stool Culture cp 08/ 16:19 Order name: CDIFF cp 08/ 16:19 Order name: Procalcitonin; Complete Time: 17:34 cp 08/05 17:47 Interpretation: Abnormal: Procalcitonin 0.22. cp 08/05 16:19 Order name: Lactate; Complete Time: 17:27 cp 08/05 17:56 Interpretation: Within normal limits: LAC 0.9. cp 08/05 16:19 Order name: Blood Culture Adult (2) cp 08/05 17:09 Order name: CBC Smear Scan; Complete Time: 17:27 EDMS 02/16 18:13 Order name: SARS-COV-2 RT PCR; Complete Time: 18:48 EDMS 02/16 18:33 Order name: TSH; Complete Time: 07:29 cp 0805 18:33 Order name: T3 Free; Complete Time: 07:29 cp 02/16 18:33 Order name: T4 Free; Complete Time: 07:29 cp 02/16 22:33 Order name: BMP ea 02/16 23:05 Order name: Basic Metabolic Panel; Complete Time: 07:29 EDMS 05 23:09 Order name: Troponin I; Complete Time: 07:29 EDMS 0806 05:33 Order name: Comprehensive Metabolic Panel; Complete Time: 07:29 EDMS 0806 05:33 Order name: Troponin I; Complete Time: 07:29 EDMS 0806 05:33 Order name: Lipid Profile; Complete Time: 07:29 EDMS 0806 05:33 Order name: Magnesium; Complete Time: 07:29 EDMS 08 05:53 Order name: CBC with Automated Diff EDMS 02/17 06:05 Order name: Urine Dipstick-Ancillary; Complete Time: 07:29 EDMS 02/16 16:15 Order name: XRAY Chest (1 view); Complete Time: 17:27 cp 0805 16:15 Order name: EKG; Complete Time: 16:15 cp 02/16 16:15 Order name: Cardiac monitoring; Complete Time: 16:37 cp 02/16 16:15 Order name: EKG - Nurse/Tech; Complete Time: 16:37 cp 02/16 16:15 Order name: IV Saline Lock; Complete Time: 16:37 cp 05 16:15 Order name: Labs collected and sent; Complete Time: 16:37 cp 02/16 16:15 Order name: O2 Per Protocol; Complete Time: 16:37 cp 05 16:15 Order name: O2 Sat Monitoring; Complete Time: 16:37 cp 02/16 16:19 Order name: US Extremity Venous W Compression Jg; Complete Time: 18:06 cp 05 18:06 Interpretation: Report reviewed. cp 0805 18:55 Order name: Misc. Order: REPEAT BMP AT 2200; Complete Time: 23:29 la1 02/16 19:04 Order name: Misc. Order: Give kayexalate through FT please; Complete Time: 19:40 la1 02/17 07:09 Order name: RAD; Complete Time: 07:29 EDMS 02/17 07:42 Order name: CBC Smear Scan EDWV 02/17 09:34 Order name: Hemoglobin EDWV 02/17 09:34 Order name: Hematocrit EDWV 02/17 09:34 Order name: Retic Count EDWV 02/17 10:20 Order name: Lactic Dehydrogenase EDMS 02/17 10:20 Order name: Transferrin Sat/Iron Binding EDMS 02/17 10:20 Order name: Ferritin EDMS 02/17 10:20 Order name: Vitamin B12 Level EDWV 02/17 10:30 Order name: CT EDMS EC:40 Rate is 46 beats/min. Rhythm is irregular. QRS interval is prolonged at 148 msec. QT cp interval is prolonged at 570 msec. T waves are Inverted in lead III. Interpreted by me. Reviewed by me. 18:44 Rate is 43 beats/min. Rhythm is irregular. QRS interval is prolonged at 146 msec. QT cp interval is prolonged at 568 msec. T waves are Inverted in lead III. Interpreted by me. Reviewed by me. Administered Medications: 16:46 Drug: Zofran (Ondansetron) 4 mg Route: IVP; Site: left antecubital; jd3 17:45 Follow up: Response: No adverse reaction j 16:46 Drug: Pepcid (famotidine) 20 mg Route: IVP; Site: left antecubital; jd3 17:45 Follow up: Response: No adverse reaction j 19:16 Drug: Albuterol - atroVENT (ipratropium) (3:1) (2.5 mg - 0.5 mg) 3 ml Route: Nebulizer; j 19:16 Drug: D50W 50 ml Route: IVP; Site: left antecubital; jd3 19:16 Drug: Calcium Gluconate 1 grams Route: IVPB; Infused Over: 60 mins; Site: left d3 antecubital; 19:17 Drug: Lasix (furosemide) 40 mg Route: IVP; Site: left antecubital; jd3 19:17 Drug: Lasix (furosemide) 40 mg Route: IVP; Site: left antecubital; jd3 19:18 Drug: Insulin Regular Human 5 units {Co-Signature: bs2 (Kayleigh Richardson RN).} Route: IVP; [facility] Site: left antecubital; 19:40 Drug: Kayexalate (polystyrene) 45 grams Route: PO; ea Disposition Summary: 02/16/21 18:41 Hospitalization Ordered Hospitalization Status: Inpatient Admission cp Condition: Fair cp Problem: new cp Symptoms: are unchanged cp Bed/Room Type: Standard cp Provider: Matthew Michelle(02/17/21 05:16) la1 Location: Telemetry/MedSurg (Inpatient)(02/17/21 13:50) aa5 Room Assignment: 219(02/17/21 13:50) aa5 Diagnosis - Bradycardia, unspecified cp - Hyperkalemia cp - Acute pulmonary edema cp - Unspecified combined systolic (congestive) and diastolic (congestive) heart failure cp Forms: - Medication Reconciliation Form cp - SBAR form cp Addendum: 02/18/2021 18:11 Co-signature as Attending Physician, Jax Lopes MD I agree with the assessment and k dr plan of care. Signatures: Dispatcher [employer] EDWV Jax Lopes MD MD [facility] Meghan Singh RN RN aa5 Jose Zambrano, DEPUTY SHERIFF/INVESTIGATOR-C DEPUTY SHERIFF/INVESTIGATOR-Cla1 Homer Colon PA PA Lynnette Espinoza, RN RN Cass Ambriz RN RN ea Davies, Jonathon, RN RN jd3 Kayleigh Richardson RN bs2 Corrections: (The following items were deleted from the chart) 02/16 17:04 16:20 CORONAVIRUS+ ordered. EDWV EDMS 17:27 17:27 Normal except: K 6.1; GLUC 141; BUN 80; CRE 1.46; GFR 49. cp cp 20:35 18:41 Telemetry/MedSurg (Inpatient) cp cp 20:35 18:41 cp cp 02/17 00:03 02/16 20:35 Intensive Care Unit cp cg 02/17 00:03 02/16 20:35 cp cg 02/17 05:16 02/16 18:41 Jose Zambrano cp la1 02/17 13:50 00:03 [facility] ER HOLD cg aa5 13:50 00:03 ERHOLD- cg aa5
[2021-02-16] MEDS ORDERED: FUROSEMIDE 40 MG/4 ML VIAL ONE (19:13)
[2021-02-16] MEDS ORDERED: ALBUTEROL 2.5 MG/3 ML NEB SOL ONE (19:13)
[2021-02-16] MEDS ORDERED: IPRATROPIUM BROM 0.5MG/2.5ML ONE (19:14)
[2021-02-16] MEDS ORDERED: CALCIUM GLUCONATE 1 GM IVPB 1 GM/50 ML BAG IV ONE (19:14)
[2021-02-16] MEDS ORDERED: INSULIN -REGULAR HUMAN 50 UNIT/0.5 ML ML ONE (19:14)
[2021-02-16] MEDS ORDERED: D50W 25 GM/50 ML SYRINGE IV ONE (19:14)
[2021-02-16] MEDS ORDERED: SOD POLYSTYREN SUL 15 GM/60 ML UCUP ONE (19:34)
--- NOTE | 2021-02-16 19:40 | P.HP ---
Certification for Inpatient Patient admitted to: Inpatient With expected LOS: >2 Midnights Patient will require the following post-hospital care: None Practitioner: I am a practitioner with admitting privileges, knowledge of patient current condition, hospital course, and medical plan of care. Services: Services provided to patient in accordance with Admission requirements found in Title 42 Section 412.3 of the Code of Federal Regulations Patient History Date of Service: 02/16/21 History of Present Illness: 65-year-old male with history of chronic diastolic congestive heart failure, diabetes mellitus type 2, CKD 3, iron deficiency anemia, history of CVA status post PEG tube insertion with chronic Holcomb catheter and history of urinary tract infections presents emergency department for diarrhea. reports patient has had diarrhea consistently over the course of the last few days. Upon arrival to the emergency department patient was found to be bradycardic with heart rate between 30 and 45, further evaluation with lab work revealed hemoglobin 8.1 hematocrit 24.8 MCV 78 platelets 101 potassium 6.1 creatinine 1.46 GFR 49 BUN 80 glucose 141 procalcitonin 0.22 BNP 25,164 chest x- ray demonstrates new right-sided pleural effusion with infiltrate or atelectasis in the right lower lung field findings are potentially all failure or volume overloaded but pneumonia cannot be excluded. Given patient's significant bradycardia cardiology was consulted while patient was in the emergency department, recommend correction of potassium and notification for worsening clinical status. 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 Patient currently normotensive, alert not having any complaints currently. Patient was given albuterol, calcium, insulin, dextrose, Kayexalate in the emergency department. Will recheck potassium in the next few hours. Allergies spironolactone Adverse Reaction (Verified 02/08/21 23:48) Anaphylaxis nexen Adverse Reaction (Uncoded 02/08/21 23:48) hallucination Home Medications: Aspirin [Adult Aspirin Regimen] 81 mg FT BEDTIME 06/04/20 Atorvastatin Calcium [Lipitor] 80 mg FT BEDTIME 06/04/20 Amlodipine [Norvasc*] 10 mg FT DAILY 07/16/20 Clopidogrel Bisulfate [Plavix*] 75 mg FT DAILY 07/16/20 Escitalopram [Lexapro*] 30 mg FT DAILY 07/16/20 Gabapentin 300 mg FT BID 07/16/20 Doxazosin [Cardura*] 2 mg FT BEDTIME 30 Days #30 tab 12/08/20 Glucerna 1.5 Higinio 360 ml FT QID #10 bot 12/08/20 Insulin Lispro [Admelog] See Protocol SQ SEECOM #1 vial 12/08/20 Acetaminophen [Acetaminophen Extra Strength] 1 tab FT PRN PRN 12/16/20 Ascorbic Acid [Vitamin C] 2,000 mg FT TID 12/16/20 Calcitonin [Miacalcin Nasal [place]*] 1 spray IN DAILY 12/16/20 Ondansetron HCl [Zofran] 1 tab FT Q8H PRN 12/16/20 Promethazine HCl 1 tab FT Q6H PRN 12/16/20 Sucralfate [Carafate] 100 mg FT Q6H 12/16/20 Tramadol HCl [Ultram] 50 mg FT Q4H PRN 12/16/20 Trazodone HCl 150 tab FT BEDTIME 12/16/20 Furosemide [Lasix*] 20 mg PO BIDL #60 tab 12/21/20 Ferrous Sulfate [Ferrous Sulfate Elixir*] 5 ml FT TID 02/09/21 Metoprolol Tartrate [Lopressor] 100 mg FT BID 02/09/21 Argin/Glut/Cahmb/Collag/Mv-Min [Bryan Packet] 1 each PO BID #60 powd.pack 02/11/21 Cefdinir [Omnicef] 300 mg PO BID #14 capsule 02/11/21 Lidocaine Viscous 2% Soln [Xylocaine Viscous Oral 2%*] 15 ml PO BID #300 udc 02/11/21 Miconazole Cream [Monistat-Derm*] 1 appl TOP BID #1 tube 02/11/21 Minocycline HCl 100 mg PO BID #14 capsule 02/11/21 Mupirocin Oint [Bactroban 2% Ointment] 15 gm TP BID #1 tube 02/11/21 - Past Medical/Surgical History Diabetic: Yes -: Diabetes mellitus type 2, insulin-dependent -: CAD -: Hypertension -: Hyperlipidemia -: COPD -: Tobacco abuse -: Fracture t12 L3 -: PEG tube -: CKD 3 -: seizures -: Stroke -: Chronic diastolic congestive -: Knee surgery -: I&D lower right buttock -: hiatal hernia repair -: I and D to the left foot -: Left Bipolar 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 He lives with his son. - Family History Father -: Heart disease, Hypertension, Lung disease, GI disease, Diabetes, Cancer, Other (see notes) Notes: parkinson's disease Mother -: Heart disease, Hypertension, Diabetes, Cancer Sister -: Cancer - Social History Alcohol use: No CD- Drugs: No Caffeine use: Yes Place of Residence: Home Review of Systems 10-point ROS is otherwise unremarkable General: Weakness, Malaise Respiratory: Shortness of Breath Gastrointestinal: Diarrhea Physical Examination - Physical Exam General: Alert, In no apparent distress, Oriented x2 HEENT: Atraumatic, PERRLA, Mucous membr. moist/pink, EOMI, Sclerae nonicteric Neck: Supple, 2+ carotid pulse no bruit, No LAD, Without JVD or thyroid abnormality Respiratory: Normal air movement, Crackles/rales Cardiovascular: Normal S1 S2, Edema (Proximal lower extremity edema, abdominal wall edema), Irregular heart rate/rhythm (Bradycardia with rate between 30 and 45) Gastrointestinal: Normal bowel sounds, Soft and benign, No tenderness, Other (PEG tube in place) Musculoskeletal: No tenderness Integumentary: No rashes Neurological: Normal speech, Normal tone, Normal affect, Abnormal strength - Studies Laboratory Data (last 24 hrs) 02/16/21 16:35: PT 12.3, INR 1.07 02/16/21 16:35: WBC 5.30 D, Hgb 8.1 L, Hct 24.8 L, Plt Count 101 L 02/16/21 16:35: Sodium 138, Potassium 6.1 H*, BUN 80 H, Creatinine 1.46 H, Glucose 141 H, Magnesium 3.1 H, Total Bilirubin 0.2, AST 67 H, ALT 106 H, Alkaline Phosphatase 113 Microbiology Data (last 24 hrs): 02/16/21 16:19 Stool Stool Occult Blood (JULIOCESAR) - 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 Assessment and Plan - Plan Assessment: Acute kidney injury superimposed on CKD 3 with hyperkalemia, bradycardia Dyspnea secondary to acute on chronic diastolic congestive heart failure Diarrhea Diabetes mellitus type [address] status post aspiration pneumonia Anemia of chronic disease with iron deficiency Chronic Holcomb catheter with history of urinary retention, UTIs History of CAD with previous CABG Hypertension Hyperlipidemia Plan: Acute kidney injury superimposed on CKD 3 with hyperkalemia, bradycardia: Patient significantly volume overloaded at this time, also takes amlodipine at home could be contributing to significant bradycardia and commendation with hyperkalemia. Patient treated with calcium, insulin, dextrose, albuterol, Kayexalate in the emergency department will repeat potassium this evening and give further medications as needed. Case was discussed with cardiology and nephrology continue with their recommendations. Monitor on telemetry. Dyspnea secondary to acute on chronic diastolic congestive heart failure: Continue with IV Lasix 40 mg IV 3 times daily, patient with recent echocardiogram demonstrating diastolic dysfunction, patient with new right-sided pleural effusion likely volume overload. Appreciate further input from cardiology, nephrology. Diarrhea: Stool studies ordered including C. difficile, stool cultures, O&P. Will evaluate. We will need to continue with diuresis, Kayexalate at this time for bradycardia, hyperkalemia. Diabetes mellitus type 2: AC at bedtime Accu-Chek, sliding scale insulin therapy. Continue home medications. PEG tube in place status post aspiration pneumonia: Continue with tube feeds, aspiration precautions. Anemia of chronic disease with iron deficiency: Transfuse to maintain hemoglobin greater than 7.5, no signs of active bleeding at this time, patient with history of ALICIA. Chronic Holcomb catheter with history of urinary retention, UTIs: Urine microscopic, cultures ordered and pending, patient currently taking cefdinir and minocycline at home. Will evaluate labs, blood culture, urine culture. History of CAD with previous CABG: Continue medications including aspirin, Plavix, will hold off on any beta-virgilio/calcium channel virgilio given bradyca rdia and hyperkalemia. Appreciate further input from cardiology. Hypertension: Continue medications, hold calcium channel/beta-virgilio. Hyperlipidemia: Continue medication. DVT PPX: SCDs, aspirin, Plavix Code status: Full Discharge Plan: Home Plan to discharge in: Greater than 2 days - Advance Directives Does patient have a Living Will: No Does patient have a Durable POA for Healthcare: No - Code Status/Comfort Care Code Status Assessed: Yes (Full code) Critical Care: No Time Spent Managing Pts Care (In Minutes): 55
[2021-02-16] MEDS ORDERED: ACETAMINOPHEN 500 MG TAB FT PRN (20:50)
[2021-02-16] MEDS: INSULIN -REGULAR HUMAN 50 UNIT/0.5 ML ML SQ SCH (21:00)
[2021-02-16 23:04] LABS: Potassium 4.9 mmol/L (3.5-5.1)
[2021-02-16 23:43] VITALS: BMI 19.0
[2021-02-16 23:52] LABS: T3 Free 1.45 pg/mL (2.18-3.98)
[2021-02-16 23:58] LABS: Thyroid Stimulating Hormone 5.23 uIU/mL (0.360-3.740)
[2021-02-17] MEDS: FUROSEMIDE 40 MG/4 ML VIAL IV SCH ×3 (01:00→17:27)
[2021-02-17] MEDS ORDERED: FUROSEMIDE 40 MG/4 ML VIAL ONE ×2 (01:06→09:59)
[2021-02-17] MEDS ORDERED: ALBUTEROL 2.5 MG/3 ML NEB SOL ONE (04:51)
[2021-02-17] MEDS ORDERED: IPRATROPIUM BROM 0.5MG/2.5ML ONE (04:51)
[2021-02-17 05:33] LABS: Albumin 2.7 g/dL (3.4-5.0); Bilirubin Total 0.3 mg/dL (0.2-1.0); Magnesium 3.1 mg/dL (1.8-2.4); Potassium 4.7 mmol/L (3.5-5.1); Protein, Total 6.2 g/dL (6.4-8.2); Troponin I 0.02 ng/mL (0.0-0.045)
[2021-02-17 05:47] LABS: Absolute Lymphocytes (CBC) 1.1 K/uL (0.7-4.9); Basophils % 0.6 % (0-1.3); Hematocrit 22.1 % (39.6-49.0); Lymphocytes % 16.9 % (15.3-44.8); MPV 11.3 fL (7.6-11.3); RBC Red Blood Cell Count 2.85 M/uL (4.33-5.43)
[2021-02-17 06:05] LABS: Urine Blood 3+ (Negative); Urine Glucose Negative (Negative); Urine Protein 3+ (Negative)
--- NOTE | 2021-02-17 06:29 | P.PN ---
Subjective Date of Service: 02/17/21 Subjective: Other (Patient resting in bed. 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 No intraluminal filling defects seen. IMPRESSION: No DVT in either lower extremity. Chest x-ray: COMPARISON: February 16, 2021 FINDINGS: No significant change in the bilateral pulmonary opacities, cardiomegaly and pleural effusions right greater than left. Postsurgical changes involve chest IMPRESSION: No significant change since the prior exam. The patient likely has pulmonary edema CT Scan AB: COMPARISON: November 2020 TECHNIQUE: Computed axial tomography of the abdomen and pelvis was obtained. IV and oral contrast were not requested. All CT scans are performed using dose optimization technique as appropriate and may include automated exposure control or mA/KV adjustment according to patient size. FINDINGS: The evaluation of solid organs, vessels and bowel is limited secondary to the lack of contrast administration. Small to moderate right and small left pleural effusions with bibasilar atelectasis The liver, spleen, pancreas, adrenals and kidneys appear grossly normal. Increased density within the gallbladder. Atherosclerotic disease. . No evidence diverticulitis. Diffuse edema within the subcutaneous tissues. A percutaneous tube within the stomach. Small amount of ascites. Holcomb catheter within the bladder. Old vertebral compression fractures IMPRESSION: Small to moderate right and small left pleural effusions Anasarca Increased density within the gallbladder may indicate stones Physical exam: General: Patient resting in bed. HEENT: Atraumatic, PERRLA, Mucous membr. moist/pink, EOMI, Sclerae nonicteric Neck: Supple, 2+ carotid pulse no bruit, No LAD, Without JVD or thyroid abn ormality Respiratory: Crackles to the bases. Currently on nasal cannula. Cardiovascular: Regular rate and rhythm Gastrointestinal: Normal bowel sounds, Soft and benign, No tenderness, Other (PEG tube in place) Musculoskeletal: No tenderness Integumentary: No rashes Neurological: Normal speech, Normal tone, Normal affect, Abnormal strength Impression: Acute kidney injury superimposed on CKD 3 with hyperkalemia, bradycardia Dyspnea secondary to acute on chronic diastolic congestive heart failure Diarrhea Diabetes mellitus type [address] status post aspiration pneumonia Anemia of chronic disease with iron deficiency Chronic Holcomb catheter with history of urinary retention, UTIs History of CAD with previous CABG Hypertension Hyperlipidemia Plan: Acute kidney injury superimposed on CKD 3 with hyperkalemia, bradycardia: Patient treated with calcium, insulin, dextrose, albuterol, Kayexalate in the emergency department. Repeat potassium improved. Continue with nephrology recommendations. Continue IV Lasix. Will monitor closely. Patient would benefit with long-term acute care facility placement. Significant other agrees with plan of care. Dyspnea secondary to acute on chronic diastolic congestive heart failure: Continue IV Lasix. Patient with history of diastolic dysfunction. Continue monitor chest x-ray. Await recommendations by cardiology and nephrology. Diarrhea: Will start Flagyl IV. Obtain blood, stool cultures. Diabetes mellitus type 2: AC at bedtime Accu-Chek, sliding scale insulin therapy. Continue home medications. PEG tube in place status post aspiration pneumonia: Continue with tube feeds, aspiration precautions. Dietary to evaluate daily needs. Anemia of chronic disease with iron deficiency: Monitor hemoglobin. Transfuse if hemoglobin less than 7.0. Continue Protonix twice daily and Carafate. Provide iron supplementation. Chronic Holcomb catheter with history of urinary retention, UTIs: We will monitor blood and urine culture. History of CAD with previous CABG: Continue to hold aspirin, Plavix, beta- virgilio and calcium channel virgilio. Hypertension: Hold hold beta-virgilio and calcium channel virgilio. Continue Cardura. Hyperlipidemia: Continue medication. Thrombocytopenia: Hold aspirin and Plavix DVT PPX: SCD Code status: Full Discharge Plan: LTAC Time Spent Managing Pts Care (In Minutes): 55
--- NOTE | 2021-02-17 07:09 | RAD REPORT ---
EXAM DESCRIPTION: Roger Single View02/17/2021 5:54 am CLINICAL HISTORY: Shortness of breath COMPARISON: February 16, 2021 FINDINGS: No significant change in the bilateral pulmonary opacities, cardiomegaly and pleural effus ions right greater than left. Postsurgical changes involve chest IMPRESSION: No significant change since the prior exam. The patient likely has pulmonary edema
[2021-02-17] MEDS ORDERED: SODIUM CHLORIDE 0.9% 10ML INJ IV PRN (07:24)
[2021-02-17] MEDS: INSULIN -REGULAR HUMAN 50 UNIT/0.5 ML ML SQ SCH ×4 (07:30→20:16)
[2021-02-17 07:41] LABS: White Blood Cell Scan OK (OK)
[2021-02-17 07:42] LABS: Anisocytosis 1+; Blood Morphology Comment NOTED (NOT SEEN); Platelet Estimate DECR; Rouleau SLIGHT
[2021-02-17] MEDS ORDERED: FOLIC ACID 5 MG/ML VIAL IVP SCH (09:00)
[2021-02-17 09:32] LABS: RBC Red Blood Cell Count 3.14 M/uL (4.33-5.43)
[2021-02-17] MEDS: METRONIDAZOLE 500mg IVPB 500 MG/100 ML BAG IV SCH ×2 (09:37→17:17)
[2021-02-17] MEDS: FOLIC ACID 1 MG in NA CHLORIDE 0.9% 50 ML IV SCH (09:37)
[2021-02-17] MEDS: THIAMINE 200 MG/2 ML INJ IVP SCH (09:38)
[2021-02-17] MEDS: PANTOPRAZOLE 40 MG INJ IVP SCH ×2 (09:38→20:02)
[2021-02-17] MEDS ORDERED: PANTOPRAZOLE 40 MG INJ ONE (09:59)
[2021-02-17] MEDS ORDERED: THIAMINE 200 MG/2 ML INJ ONE (09:59)
[2021-02-17] MEDS ORDERED: METRONIDAZOLE 500mg IVPB 500 MG/100 ML BAG IV ONE (09:59)
[2021-02-17 10:20] LABS: Ferritin 2164.5 ng/mL (26-388)
--- NOTE | 2021-02-17 10:29 | RAD REPORT ---
EXAM DESCRIPTION: CT - Abdomen Pelvis Wo Contrast - 02/17/2021 8:04 am CLINICAL HISTORY: Abdominal pain /diarrhea COMPARISON: November 2020 TECHNIQUE: Computed axial tomography of the abdomen and pelvis was obtained. IV and oral contrast we re not requested. All CT scans are performed using dose optimization technique as appropriate and may include automated exposure control or mA/KV adjustment according to patient size. FINDINGS: The evaluation of solid organs, vessels and bowel is limited secondary to the lack of con trast administration. Small to moderate right and small left pleural effusions with bibasilar atelectasis The liver, spleen, pancreas, adrenals and kidneys appear grossly normal. Increased density within the gallbladder. Atherosclerotic disease. . No evidence diverticulitis. Diffuse edema within the subcutaneous tissues. A percutaneous tube within the stomach. Small amount of ascites. Holcomb catheter within the bladder. Old vertebral compression fractures IMPRESSION: Small to moderate right and small left pleural effusions Anasarca Increased density within the gallbladder may indicate stones
--- NOTE | 2021-02-17 10:50 | EKG ---
Test Date: 2021-02-16 Test Time: 18:38:59 [place] Leaf Roller: MORIS MEASUREMENT RESULTS: Intervals: Rate: 43 NE: QRSD: 146 QT: 568 QTc: 479 [place]: P: NE: QRS: -40 T: 214 INTERPRETIVE STATEMENTS: Atrial fibrillation with slow ventricular response with ventricular escape complexes Left axis deviation Left bundle branch block Abnormal ECG Compared to ECG 02/16/2021 16:33:43 Ventricular escape complex(es) now present Electronically Signed On 02-17-21 10:48:18 CDT by Martin Reyes
--- NOTE | 2021-02-17 10:51 | EKG ---
Test Date: 2021-02-16 Test Time: 16:33:43 Easement Man: JOJO MEASUREMENT RESULTS: Intervals: Rate: 46 [place]: QRSD: 148 QT: 570 QTc: 498 [place]: P: NV: QRS: -54 T: -84 INTERPRETIVE STATEMENTS: Atrial fibrillation with slow ventricular response Left axis deviation Left bundle branch block Abnormal ECG Compared to ECG 02/08/2021 12:34:53 Left-axis deviation now present Left bundle-branch block now present Sinus bradycardia no longer present First degree AV block no longer present Myocardial infarct finding no longer present Electronically Signed On 02-17-21 10:48:22 CDT by Martin Reyes
[2021-02-17] MEDS: SUCRALFATE 1GM/10ML UCUP FT SCH ×3 (13:00→20:03)
[2021-02-17] MEDS: GLUCERNA 1.5 CAL 1,000 ML BOT FT SCH ×2 (17:00→20:04)
[2021-02-17] MEDS ORDERED: IPRATROPIUM BROM 0.5MG/2.5ML NEB PRN (19:45)
[2021-02-17] MEDS: GABAPENTIN 300 MG CAP FT SCH (20:02)
[2021-02-17] MEDS: DOXAZOSIN 2 MG TAB FT SCH (20:03)
[2021-02-17] MEDS ORDERED: ATORVASTATIN 80 MG TAB FT SCH (21:00)
[2021-02-17] MEDS ORDERED: DOXAZOSIN 2 MG TAB FT SCH (21:00)
--- NOTE | 2021-02-17 21:12 | P.CNS ---
Date of Consult: 02/17/21 Reason for Consult: CKD/ Hyperkalemia Requesting Physician: Matthew Michelle Chief Complaint: Diarrhea History of Present Illness: 65-year-old male with history of chronic diastolic congestive heart failure, diabetes mellitus type 2, CKD 3, iron deficiency anemia, history of CVA status post PEG tube insertion with chronic Holcomb catheter and history of urinary tract infections presents emergency department for diarrhea. reports patient has had diarrhea consistently over the course of the last few days. Upon arrival to the emergency department patient was found to be bradycardic with heart rate between 30 and 45, further evaluation with lab work revealed hemoglobin 8.1 hematocrit 24.8 MCV 78 platelets 101 potassium 6.1 creatinine 1.46 GFR 49 BUN 80 glucose 141 procalcitonin 0.22 BNP 25,164 chest x- ray demonstrates new right-sided pleural effusion with infiltrate or atelectasis in the right lower lung field findings are potentially all failure or volume overloaded but pneumonia cannot be excluded. Given patient's significant bradycardia cardiology was consulted while patient was in the emergency department, recommend correction of potassium and notification for worsening clinical status. Case was also discussed with patient's pc tech who gave recommendations for additional medications and repeat lab work. Patient currently normotensive, alert not having any complaints currently. Patient was given albuterol, calcium, insulin, dextrose, Kayexalate in the emergency department. 16:20 This 65 yrs old Male presents to ER via EMS with complaints of Diarrhea. cp 16:20 The patient presents to the emergency department with vomiting, that is intermittent, cp started today, diarrhea, that is continuous, for past 6 days. Possible causes: unknown. Associated signs and symptoms: Pertinent positives: shortness of breath, Pertinent negatives: abdominal pain, fever, chest pain. Allergies spironolactone Adverse Reaction (Verified 02/08/21 23:48) Anaphylaxis nexen Adverse Reaction (Uncoded 02/08/21 23:48) hallucination Home medications list reviewed: Yes Home Medications: Aspirin [Adult Aspirin Regimen] 81 mg FT BEDTIME 06/04/20 Atorvastatin Calcium [Lipitor] 80 mg FT BEDTIME 06/04/20 Amlodipine [Norvasc*] 10 mg FT DAILY 07/16/20 Clopidogrel Bisulfate [Plavix*] 75 mg FT DAILY 07/16/20 Escitalopram [Lexapro*] 30 mg FT DAILY 07/16/20 Gabapentin 300 mg FT BID 07/16/20 Doxazosin [Cardura*] 2 mg FT BEDTIME 30 Days #30 tab 12/08/20 Insulin Lispro [Admelog] See Protocol SQ SEECOM #1 vial 12/08/20 Ascorbic Acid [Vitamin C] 2,000 mg FT TID 12/16/20 Sucralfate [Carafate] 100 mg FT Q6H 12/16/20 Trazodone HCl 150 tab FT BEDTIME 12/16/20 Ferrous Sulfate [Ferrous Sulfate Elixir*] 5 ml FT TID 02/09/21 Metoprolol Tartrate [Lopressor] 100 mg FT BID 02/09/21 Furosemide [Lasix*] 20 mg PO BID 02/17/21 - Past Medical/Surgical History Diabetic: Yes -: Diabetes mellitus type 2, insulin-dependent -: CAD -: Hypertension -: Hyperlipidemia -: COPD -: Tobacco abuse -: Fracture t12 L3 -: PEG tube -: CKD 3 -: seizures -: Stroke -: Chronic diastolic congestive -: Knee surgery -: I&D lower right buttock -: hiatal hernia repair -: I and D to the left foot -: Left Bipolar Hemiarthroplasty 04/06/19 -: Hip surgery -: CABG -: hand sx, PEG Psychosocial/ Personal History: Patient is single. He lives with his son. - Family History Father Medical History: Heart disease, Hypertension, Lung disease, GI disease, Diabetes, Cancer, Other (see notes) Notes: parkinson's disease Mother Medical History: Heart disease, Hypertension, Diabetes, Cancer Sister Medical History: Cancer - Social History Smoking Status: Unknown if ever smoked Alcohol use: No CD- Drugs: No Caffeine use: Yes Place of Residence: Home Review of Systems 10-point ROS is otherwise unremarkable General: Weakness, Malaise Gastrointestinal: Diarrhea Neurological: Weakness Physical Examination Temp Pulse Resp BP Pulse Ox 98.2 F 67 18 170/75 H 99 02/17/21 16:08 02/17/21 20:03 02/17/21 16:00 02/17/21 20:03 02/17/21 16:08 General: In no apparent distress, Cooperative HEENT: Atraumatic Neck: Supple Respiratory: Clear to auscultation bilaterally Cardiovascular: No edema, Regular rate/rhythm Gastrointestinal: Soft and benign, Non-distended Musculoskeletal: No clubbing, No contractures Integumentary: No rashes, No cyanosis, Erythema Neurological: Normal speech Blood work reviewed in the chart. Imagings Data: EXAM DESCRIPTION: CT - Abdomen Pelvis Wo Contrast - 02/17/2021 8:04 am CLINICAL HISTORY: Abdominal pain /diarrhea COMPARISON: November 2020 TECHNIQUE: Computed axial tomography of the abdomen and pelvis was obtained. IV and oral contrast were not requested. All CT scans are performed using dose optimization technique as appropriate and may include automated exposure control or mA/KV adjustment according to patient size. FINDINGS: The evaluation of solid organs, vessels and bowel is limited secondary to the lack of contrast administration. Small to moderate right and small left pleural effusions with bibasilar atelectasis The liver, spleen, pancreas, adrenals and kidneys appear grossly normal. Increased density within the gallbladder. Atherosclerotic disease. . No evidence diverticulitis. Diffuse edema within the subcutaneous tissues. A percutaneous tube within the stomach. Small amount of ascites. Holcomb catheter within the bladder. Old vertebral compression fractures IMPRESSION: Small to moderate right and small left pleural effusions Anasarca Increased density within the gallbladder may indicate stones EXAM DESCRIPTION: RADChest Single View02/17/2021 5:54 am CLINICAL HISTORY: Shortness of breath COMPARISON: February 16, 2021 FINDINGS: No significant change in the bilateral pulmonary opacities, cardiomegaly and pleural effusions right greater than left. Postsurgical changes involve chest IMPRESSION: No significant change since the prior exam. The patient likely has pulmonary edema EXAM DESCRIPTION: US - Extrem Venous W Compress Jg - 02/16/2021 5:12 pm CLINICAL HISTORY: SWELLING, leg pain COMPARISON: None. TECHNIQUE: Real-time sonographic evaluation of the bilateral lower extremity common femoral, superficial femoral, popliteal and posterior tibial veins was performed. FINDINGS: Normal compressibility, flow augmentation, phasic flow and spontaneous flow are identified in the left and right lower extremity common femoral, superficial femoral, popliteal and posterior tibial veins. No intraluminal filling defects seen. IMPRESSION: No DVT in either lower extremity. Conclusions/Impression: CKD III with proteinuria -No NSAIDs Hyperkalemia -Kayexalate prn -Continue diuresis HTN with CKD/ CHF -Continue Doxazosin Diastolic CHF, A/C -Continue furosemide DM II with CKD -RISS Moderate malnutrition -Continue Glucerna Anemia in chronic illness -Monitor H&H Thank you kindly for the consultation.
[2021-02-17] MEDS: ALBUTEROL 2.5 MG/3 ML NEB SOL NEB PRN (21:37)
[2021-02-18] MEDS: FUROSEMIDE 40 MG/4 ML VIAL IV SCH ×2 (00:51→08:46)
[2021-02-18] MEDS: METRONIDAZOLE 500mg IVPB 500 MG/100 ML BAG IV SCH ×3 (00:51→17:39)
--- NOTE | 2021-02-18 06:06 | P.PN ---
Subjective Date of Service: 02/18/21 Chief Complaint: Diarrhea Subjective: Improving, Other (Currently on room air) Physical Examination - Vital Signs Temperature: 98.1 F Blood Pressure: 137/63 Pulse: 70 Respirations: 16 Pulse Ox (%): 95 Assessment & Plan Discharge Plan: Other (LTAC versus inpatient rehab) Plan to discharge in: 48 Hours Physician Review Additional Text: COVID: Negative Venous doppler: FINDINGS: Normal compressibility, flow augmentation, phasic flow and spontaneous flow are identified in the left and right lower extremity common femoral, superficial femoral, popliteal and posterior tibial veins. No intraluminal filling defects seen. IMPRESSION: No DVT in either lower extremity. Chest x-ray: COMPARISON: Chest Single View dated 02/17/2021; Chest Single View dated 02/16/2021; Chest Single View dated 02/08/2021; Chest Single View dated 12/19/2020 FINDINGS: Improving edema compared with yesterday. Cardiomegaly.No acute osseous abnormality. Small layering effusions which have likely decreased. IMPRESSION: Improving edema. CT Scan AB: COMPARISON: November 2020 TECHNIQUE: Computed axial tomography of the abdomen and pelvis was obtained. IV and oral contrast were not requested. All CT scans are performed using dose optimization technique as appropriate and may include automated exposure control or mA/KV adjustment according to patient size. FINDINGS: The evaluation of solid organs, vessels and bowel is limited secondary to the lack of contrast administration. Small to moderate right and small left pleural effusions with bibasilar atelectasis The liver, spleen, pancreas, adrenals and kidneys appear grossly normal. Increased density within the gallbladder. Atherosclerotic disease. . No evidence diverticulitis. Diffuse edema within the subcutaneous tissues. A percutaneous tube within the stomach. Small amount of ascites. Holcomb catheter within the bladder. Old vertebral compression fractures IMPRESSION: Small to moderate right and small left pleural effusions Anasarca Increased density within the gallbladder may indicate stones Physical exam: General: Patient resting in bed. HEENT: Atraumatic, PERRLA, Mucous membr. moist/pink, EOMI, Sclerae nonicteric Neck: Supple, 2+ carotid pulse no bruit, No LAD, Without JVD or thyroid abnormality Respiratory: Better air movement bilateral. Currently on nasal cannula. Cardiovascular: Regular rate and rhythm Gastrointestinal: Normal bowel sounds, Soft and benign, No tenderness, Other (PEG tube in place) Musculoskeletal: No tenderness Integumentary: No rashes Neurological: Normal speech, Normal tone, Normal affect, Abnormal strength Impression: Acute kidney injury superimposed on CKD 3 with hyperkalemia, bradycardia Dyspnea secondary to acute on chronic diastolic congestive heart failure Diarrhea Diabetes mellitus type [address] status post aspiration pneumonia Anemia of chronic disease with iron deficiency Chronic Holcomb catheter with history of urinary retention, UTIs History of CAD with previous CABG Hypertension Hyperlipidemia Plan: Acute kidney injury superimposed on CKD 3 with hyperkalemia, bradycardia: Renal function improved. Currently at baseline. Decrease IV Lasix to twice daily. Discussed at length about the possibility of long-term acute care facility placement versus inpatient rehab. Will need to have physical therapy and Occupational Therapy to reassess patient. Family member reports patient was approved by inpatient rehab. Patient likely needs to be reevaluated by physical therapy. Await recommendation. Will discuss with social work assistant as well. Dyspnea secondary to acute on chronic diastolic congestive heart failure: Decrease IV Lasix. Patient with history of diastolic dysfunction. Continue with nephrology and cardiology recommendation. Diarrhea: Continue IV Flagyl. Blood and stool cultures pending. Diabetes mellitus type 2: Continue Accu-Cheks. Continue sliding scale. PEG tube in place status post aspiration pneumonia: She with history of aspiration. Aspiration precaution in place. Speech evaluated patient again today to further evaluate. Speech recommends mechanical soft ground with thin liquid. Anemia of chronic disease with iron deficiency: Monitor hemoglobin. Transfuse if hemoglobin less than 7.0. Continue Protonix twice daily and Carafate. Provide iron supplementation. Chronic Holcomb catheter with history of urinary retention, UTIs: Urine culture negative. Will monitor closely. History of CAD with previous CABG: Continue to hold aspirin, Plavix, beta- virgilio and calcium channel virgilio. Hypertension: Hold hold beta-virgilio and calcium channel virgilio. Continue Cardura. Hyperlipidemia: Continue medication. Thrombocytopenia: Hold aspirin and Plavix DVT PPX: SCD Code status: Full Discharge Plan: LTAC versus inpatient rehab. Time Spent Managing Pts Care (In Minutes): 55
[2021-02-18 06:58] LABS: Urine Appearance CLEAR (Clear); Urine Bilirubin NEGATIVE (Negative); Urine Blood TRACE (Negative); Urine Color YELLOW (Yellow); Urine Glucose NEGATIVE (Negative); Urine Protein 3+ (Negative)
[2021-02-18 07:18] LABS: Absolute Lymphocytes (CBC) 0.7 K/uL (0.7-4.9); Basophils % 0.9 % (0-1.3); Hematocrit 22.7 % (39.6-49.0); Lymphocytes % 11.9 % (15.3-44.8); MPV 11.3 fL (7.6-11.3); RBC Red Blood Cell Count 2.92 M/uL (4.33-5.43)
[2021-02-18] MEDS: INSULIN -REGULAR HUMAN 50 UNIT/0.5 ML ML SQ SCH ×4 (07:30→20:38)
[2021-02-18 07:41] LABS: Albumin 2.7 g/dL (3.4-5.0); Bilirubin Total 0.3 mg/dL (0.2-1.0); Magnesium 2.9 mg/dL (1.8-2.4); Potassium 4.2 mmol/L (3.5-5.1); Protein, Total 6.2 g/dL (6.4-8.2)
[2021-02-18] MEDS: FOLIC ACID 1 MG in NA CHLORIDE 0.9% 50 ML IV SCH (08:41)
--- NOTE | 2021-02-18 08:43 | RAD REPORT ---
EXAM DESCRIPTION: RAD - Chest Single View - 02/18/2021 6:38 am CLINICAL HISTORY: Follow up CHF COMPARISON: Chest Single View dated 02/17/2021; Chest Single View dated 02/16/2021; Chest Single View [place] 02/08/2021; Chest Single View dated 12/19/2020 FINDINGS: Improving edema compared with yesterday. Cardiomegaly.No acute osseous abnormality. Small layering effusions which have likely decreased. IMPRESSION: Improving edema.
[2021-02-18] MEDS: ESCITALOPRAM 20 MG TAB FT SCH (08:45)
[2021-02-18] MEDS: ASCORBIC ACID 500 MG TABLET PO SCH (08:45)
[2021-02-18] MEDS: GLUCERNA 1.5 CAL 1,000 ML BOT FT SCH ×4 (08:45→20:37)
[2021-02-18] MEDS: GABAPENTIN 300 MG CAP FT SCH ×2 (08:46→20:33)
[2021-02-18] MEDS: THIAMINE 200 MG/2 ML INJ IVP SCH (08:46)
[2021-02-18] MEDS: SUCRALFATE 1GM/10ML UCUP FT SCH ×4 (09:00→20:35)
[2021-02-18 09:10] LABS: Urine Microscopic Reflex ORDER UMIC
[2021-02-18] MEDS: PANTOPRAZOLE 40 MG INJ IVP SCH ×2 (09:46→20:38)
[2021-02-18 10:00] LABS: Urine Bacteria <20 /HPF (NONE SEEN); Urine RBC <5 /HPF (NONE SEEN)
[2021-02-18] MEDS: ONDANSETRON 4 MG/2 ML VIAL IV PRN ×2 (11:31→17:38)
[2021-02-18] MEDS: EPOETIN ALFA-EPBX 4,000 UNIT/ML VIAL SQ SCH (11:32)
--- NOTE | 2021-02-18 12:02 | PN ---
Subjective: The patient is seen in room 219 at [facility]. He is alert, awake, looks comfortable today. The is with him stanley nging his clothing. The patient denies any pain. He is able to respond to commands. He states he f eels well today. He states his breathing is improved. He was drinking some Pedialyte and also takin g some nutrition from the PEG tube. I went over the low-potassium diet again with the and patie nt, advised to avoid Pedialyte and perhaps concentrate more on maybe using Nepro and keeping a balanc ed diet with low potassium intake. The patient had come in with hyperkalemia that is now improved. His heart rate is also improved now in the 60 range. He is feeling better. Objective: Vital Signs: Blood pressure is running in the 130-160 range. His blood pressure before that yesterday were at about 125 systolic range reasonably stable. He is afebrile. His O2 sats are in the mid 90s on room air. Lungs: Clear with decreased breath sounds at the very bases with few crackles. Seems to have good a ir entry bilaterally. Abdomen: Overall abdomen is soft. Extremities: Reveal no edema. Heart: Sounds are regular and in the 60 range. Laboratory Data: Reviewed. Labs shows WBC of 6.3, hemoglobin 7.5, hematocrit 22.7, platelet count o f 100. Chemistry shows sodium 143, potassium 4.2, chloride 105, bicarb is 33, BUN is 78, creatinine is 1.5. AST, ALT at 44 and 96, albumin at 2.7. B12 level is 1075 as on labs yesterday, LDL 16, HDL 38. Assessment And Plan: 1.The patient with some protein calorie malnutrition with low albumin. Continue balance diet, avoid high potassium foods. The patient and counseled. 2.Hyperkalemia, now resolved. The patient is on Lasix. Continue for now. The patient does seem to be close to euvolemic now, much improved. Potassium is better. Bradycardia resolved. Creatinine i s stable around 1.5. 3.Chronic kidney disease 3A. The patient is in reasonable condition currently, seems to be stable c lose to euvolemic. Continue with gentle diuretic and now follow up in clinic once discharged. The p kulwinder's condition has been such that he has been in the hospital multiple times given the need for P EG tube, given his difficulty swallowing and aspiration risk. The patient's needs to be educational guidance counselor ed again how to feed him and what to feed him to avoid further aspiration and use of PEG tube needs t o be counseled also. The has been advised about all this. Also has been advised about low-pota ssium diet. The patient will benefit from rehabilitation. At this point, the patient is being evalu ated for rehabilitation by step-down hospitals and/or nursing homes. The patient's was wanting to send him to the fifth floor for rehab in [facility]. I do not think this is going to be beneficial as patient is not able to participate in much of physical therapy, but a physical therapy evaluation can be done to see if there is any benefit on keeping him in [facility] and doing rehab or here as opposed to [facility] where he could get more comprehensive monitoring and aggressive rehab as he would tolerate. The patient may be able to return home if not accepted for rehab. Abutting that scenario, would need to be extra cautious as the patient has been admitted to the hospital multiple times and given his scenario and difficulty with eating and hi gh aspiration risk and weakness and general debility, his risk of going back in CHF and coming back t o the hospital is quite high. /ERLIN Voice ID: [id number] Report ID: [id number]
[2021-02-18] MEDS ORDERED: FAMOTIDINE 20 MG/2 ML VIAL IV ONE (18:20)
[2021-02-18] MEDS: DOXAZOSIN 2 MG TAB FT SCH (20:34)
[2021-02-18] MEDS: FUROSEMIDE 20 MG/ 2ML VIAL IV SCH (20:37)
[2021-02-19] MEDS: METRONIDAZOLE 500mg IVPB 500 MG/100 ML BAG IV SCH ×3 (00:20→17:14)
[2021-02-19 05:48] LABS: Absolute Lymphocytes (CBC) 1.2 K/uL (0.7-4.9); Hematocrit 22.7 % (39.6-49.0); Lymphocytes % 18.1 % (15.3-44.8); RBC Red Blood Cell Count 2.94 M/uL (4.33-5.43)
[2021-02-19 06:00] LABS: Albumin 2.6 g/dL (3.4-5.0); Bilirubin Total 0.4 mg/dL (0.2-1.0); Magnesium 2.9 mg/dL (1.8-2.4); Potassium 3.8 mmol/L (3.5-5.1); Protein, Total 6.1 g/dL (6.4-8.2)
--- NOTE | 2021-02-19 06:07 | P.PN ---
Subjective Date of Service: 02/19/21 Chief Complaint: Diarrhea Subjective: Improving, Doing well Physical Examination - Vital Signs Temperature: 97.4 F Blood Pressure: 147/63 Pulse: 58 Respirations: 18 Pulse Ox (%): 94 Assessment & Plan Discharge Plan: Other (Inpatient rehab) Plan to discharge in: 48 Hours Physician Review Additional Text: COVID: Negative Venous doppler: FINDINGS: Normal compressibility, flow augmentation, phasic flow and spontaneous flow are identified in the left and right lower extremity common femoral, superficial femoral, popliteal and posterior tibial veins. No intraluminal filling defects seen. IMPRESSION: No DVT in either lower extremity. Chest x-ray: COMPARISON: Chest Single View dated 02/17/2021; Chest Single View dated 02/16/2021; Chest Single View dated 02/08/2021; Chest Single View dated 12/19/2020 FINDINGS: Improving edema compared with yesterday. Cardiomegaly.No acute osseous abnormality. Small layering effusions which have likely decreased. IMPRESSION: Improving edema. CT Scan AB: COMPARISON: November 2020 TECHNIQUE: Computed axial tomography of the abdomen and pelvis was obtained. IV and oral contrast were not requested. All CT scans are performed using dose optimization technique as appropriate and may include automated exposure control or mA/KV adjustment according to patient size. FINDINGS: The evaluation of solid organs, vessels and bowel is limited secondary to the lack of contrast administration. Small to moderate right and small left pleural effusions with bibasilar atelectasis The liver, spleen, pancreas, adrenals and kidneys appear grossly normal. Increased density within the gallbladder. Atherosclerotic disease. . No evidence diverticulitis. Diffuse edema within the subcutaneous tissues. A percutaneous tube within the stomach. Small amount of ascites. Holcomb catheter within the bladder. Old vertebral compression fractures IMPRESSION: Small to moderate right and small left pleural effusions Anasarca Increased density within the gallbladder may indicate stones Physical exam: General: Patient resting in bed. HEENT: Atraumatic, PERRLA, Mucous membr. moist/pink, EOMI, Sclerae nonicteric Neck: Supple, 2+ carotid pulse no bruit, No LAD, Without JVD or thyroid abnormality Respiratory: Better air movement bilateral. Currently on 2 L per nasal cannula Cardiovascular: Regular rate and rhythm Gastrointestinal: Normal bowel sounds, Soft and benign, No tenderness, Other (PEG tube in place) Musculoskeletal: No tenderness Integumentary: No rashes Neurological: Normal speech, Normal tone, Normal affect, Abnormal strength Impression: Acute kidney injury superimposed on CKD 3 with hyperkalemia, bradycardia Dyspnea secondary to acute on chronic diastolic congestive heart failure Diarrhea Diabetes mellitus type [address] status post aspiration pneumonia Anemia of chronic disease with iron deficiency Chronic Holcomb catheter with history of urinary retention, UTIs History of CAD with previous CABG Hypertension Hyperlipidemia Plan: Acute kidney injury superimposed on CKD 3 with hyperkalemia, bradycardia: Renal function stable. Patient appears to be at his baseline. Patient doing well. Will change Lasix to 40 mg 1 pill twice daily. Physical therapy recommends inpatient rehab versus other. Family and patient want patient to go to inpatient rehab. We will pursue inpatient rehab. coordinator of genetic services to help with this. Will adjust medications accordingly. I will turn to service over to the hospitalist team tomorrow. I will go plan of care with him. Dyspnea secondary to acute on chronic diastolic congestive heart failure: Change Lasix to 40 mg 1 pill twice daily we will make adjustments accordingly. Patient with history of diastolic dysfunction. Continue with nephrology and cardiology recommendation. Diarrhea: Continue IV Flagyl. Blood and stool cultures pending. Diabetes mellitus type 2: Continue Accu-Cheks. Continue sliding scale. PEG tube in place status post aspiration pneumonia: She with history of aspiration. Aspiration precaution in place. Speech evaluated patient again today to further evaluate. Speech recommends mechanical soft ground with thin liquid. Anemia of chronic disease with iron deficiency: Monitor hemoglobin. Transfuse if hemoglobin less than 7.0. Continue Protonix twice daily and Carafate. Provide iron supplementation. Chronic Holcomb catheter with history of urinary retention, UTIs: Urine culture negative. Will monitor closely. History of CAD with previous CABG: Continue to hold aspirin, Plavix, beta- virgilio and calcium channel virgilio. Hypertension: Hold hold beta-virgilio and calcium channel virgilio. Continue Cardura. Hyperlipidemia: Continue medication. Thrombocytopenia: Hold aspirin and Plavix DVT PPX: SCD Code status: Full Discharge Plan: Patient desires inpatient rehab. We will pursue inpatient rehab Time Spent Managing Pts Care (In Minutes): 55
--- NOTE | 2021-02-19 07:03 | PN ---
Date of Progress Note: 02/18/2021 Mr. Anderson had come in with hyperkalemia that has resolved. Nephrology is following. He came in wit h bradycardia that has resolved. He is now in sinus rhythm with left bundle-branch block. Metoprolo l has been held. He is normotensive. He is afebrile. Respiratory rate is 16, O2 saturation is 95%. Plan is for a referral to LTAC. He has multiple medical problems that basically include diabetes, PEG tube in place, status post aspiration pneumonia. He has anemia. He has thrombocytopenia. He pérez s chronic Holcomb catheter and a PEG tube. History of CAD, status post CABG, hypertension, and dyslipi demia. The plan is to increase his Lasix. His kidney function has improved. He is on Cardura for h is hypertension without beta-blockers or calcium blockers. Aspirin and Plavix have been held. He is not a candidate for anticoagulation. His atrial fibrillation was very brief when he came in and dudley t has resolved. We will follow him on an as-needed basis. No cardiac workup recommended at this poi nt. ANA/FROILANL Voice ID: [id number] Report ID: [id number]
[2021-02-19] MEDS: INSULIN -REGULAR HUMAN 50 UNIT/0.5 ML ML SQ SCH ×4 (07:30→20:17)
--- NOTE | 2021-02-19 07:36 | RAD REPORT ---
EXAM DESCRIPTION: RAD - Chest Single View - 02/19/2021 6:53 am CLINICAL HISTORY: Follow up CHF COMPARISON: Chest Single View dated 02/18/2021; Chest Single View dated 02/17/2021; Chest Single View [place] 02/16/2021; Chest Single View dated 02/08/2021 FINDINGS: Mild improved aeration at right lung base. Cardiomegaly. Sternotomy.No acute osseous abnor mality. No significant pleural effusions or pneumothorax. IMPRESSION: Mild edema with continued improvement in aeration of the lungs.
[2021-02-19] MEDS: PANTOPRAZOLE 40 MG INJ IVP SCH (08:20)
[2021-02-19] MEDS: ASCORBIC ACID 500 MG TABLET PO SCH (08:20)
[2021-02-19] MEDS: FUROSEMIDE 20 MG/ 2ML VIAL IV SCH (08:21)
[2021-02-19] MEDS: GABAPENTIN 300 MG CAP FT SCH ×2 (08:21→20:15)
[2021-02-19] MEDS: ESCITALOPRAM 20 MG TAB FT SCH (08:21)
[2021-02-19] MEDS: THIAMINE 200 MG/2 ML INJ IVP SCH (08:21)
[2021-02-19] MEDS: SUCRALFATE 1GM/10ML UCUP FT SCH ×4 (08:22→20:15)
[2021-02-19] MEDS: GLUCERNA 1.5 CAL 1,000 ML BOT FT SCH ×4 (08:24→20:17)
[2021-02-19] MEDS: FOLIC ACID 1 MG in NA CHLORIDE 0.9% 50 ML IV SCH (09:00)
--- NOTE | 2021-02-19 09:03 | CON ---
Date of Consultation: 02/17/2021 Reason For Consultation: Bradycardia and hyperkalemia. History Of Present Illness: Mr. Anderson is a 65-year-old male with known coronary artery disease, his tory of status post CABG. He has history of diabetes, parkinsonism, COPD, seizures, hypertension, co ngestive heart failure, and previous pneumonias. Came in with no cardiac complaint, but he came in c omplaining mostly of diarrhea that has been going on for few days. Has had some shortness of breath, but no nausea, vomiting, or diaphoresis. He denied any PND, orthopnea, pedal edema, palpitation, or syncope. Allergies: TO LATEX, SPIRONOLACTONE, AND NEXIUM. Review of Systems: Negative. Social History: Negative. Family History: Negative. Medications: At home include aspirin, Carafate, Plavix, iron, insulin, doxazosin, metformin, Lasix, metoprolol, Norvasc, nystatin, Lipitor, trazodone, and Zofran. Physical Examination: Vital Signs: Stable. He is afebrile. His heart rate was 57, in sinus efrem. HEENT: Negative. Neck: Supple without any bruit, lymphadenopathy, JVD, or thyromegaly. Chest: Clear to auscultation and percussion. Cardiac: Revealed bradycardia with S4 gallops. No murmurs or rubs. Abdomen: Benign. Extremities: Revealed no clubbing, cyanosis, or edema. Diagnostic Data: Chest x-ray showed new right pleural effusion with infiltrate consistent with pneum onia versus congestive heart failure. EKG actually showed atrial fibrillation with slow ventricular response. Left bundle-branch block. Extremity venous Doppler showed no DVT. His creatinine of 1.45 . Hemoglobin was 7.2, platelet count was 88. Ferritin level was 2164. Glucose was 144. ALT and T were slightly elevated. Lipid profile was within normal limit. Initial potassium was 7 and that w as corrected to 4.7 after calcium, glucose, and insulin. Impression And Plan: 1.Paroxysmal atrial fibrillation, slow ventricular response. 2.Hyperkalemia and renal failure. 3.Diabetes. 4.Anemia. 5.Coronary artery disease, status post coronary artery bypass graft. 6.Chronic obstructive pulmonary disease. 7.Seizure disorder. 8.Hypertension. 9.History of pneumonia. 10.Pancytopenia. I think we need to stop his beta virgilio because of his bradycardia. He should pérez ve an echocardiogram. He is not a candidate for anticoagulation with his low platelet. Nephrology i s following him. He has a PEG tube. Has had a stroke. He has proteinuria. Will avoid nonsteroidal anti-inflammatory agent. Watch his potassium. Continue Lasix. Continue doxazosin. Continue Gluce rna. Follow his H and H. No need for a pacemaker at this point. We will continue to follow him. ANA/ERLIN Voice ID: [id number] Report ID: [id number]
[2021-02-19] MEDS: EPOETIN ALFA-EPBX 4,000 UNIT/ML VIAL SQ SCH (10:00)
[2021-02-19] MEDS ORDERED: BENZONATATE 100 MG CAP PO PRN (12:33)
[2021-02-19 15:24] LABS: Hematocrit 23.9 % (39.6-49.0)
[2021-02-19] MEDS: PANTOPRAZOLE 40MG TABLET PO SCH (17:13)
[2021-02-19] MEDS: FUROSEMIDE 40 MG TABLET PO SCH (17:13)
[2021-02-19] MEDS: GUAIFENESIN/CODEINE 5ML UCUP PO PRN (17:13)
[2021-02-19] MEDS: DOXAZOSIN 2 MG TAB FT SCH (20:15)
[2021-02-19] MEDS: FOLIC ACID 1 MG TABLET PO SCH (20:16)
[2021-02-20] MEDS: METRONIDAZOLE 500mg IVPB 500 MG/100 ML BAG IV SCH ×3 (01:07→17:09)
[2021-02-20 05:34] LABS: Absolute Lymphocytes (CBC) 1.2 K/uL (0.7-4.9); Basophils % 0.8 % (0-1.3); Hematocrit 23.6 % (39.6-49.0); Lymphocytes % 18.1 % (15.3-44.8); MPV 10.4 fL (7.6-11.3); RBC Red Blood Cell Count 3.07 M/uL (4.33-5.43)
[2021-02-20 05:48] LABS: Albumin 2.6 g/dL (3.4-5.0); Bilirubin Total 0.4 mg/dL (0.2-1.0); Magnesium 2.8 mg/dL (1.8-2.4); Potassium 3.8 mmol/L (3.5-5.1); Protein, Total 5.9 g/dL (6.4-8.2)
[2021-02-20] MEDS: INSULIN -REGULAR HUMAN 50 UNIT/0.5 ML ML SQ SCH ×4 (07:30→20:11)
[2021-02-20] MEDS: SUCRALFATE 1GM/10ML UCUP FT SCH ×4 (08:42→20:10)
[2021-02-20] MEDS: GUAIFENESIN/CODEINE 5ML UCUP PO PRN ×2 (08:42→17:14)
[2021-02-20] MEDS: GLUCERNA 1.5 CAL 1,000 ML BOT FT SCH ×4 (08:43→20:11)
[2021-02-20] MEDS: PANTOPRAZOLE 40MG TABLET PO SCH ×2 (08:43→17:09)
[2021-02-20] MEDS: GABAPENTIN 300 MG CAP FT SCH ×2 (08:43→20:09)
[2021-02-20] MEDS: FOLIC ACID 1 MG TABLET PO SCH (08:43)
[2021-02-20] MEDS: ESCITALOPRAM 20 MG TAB FT SCH (08:43)
[2021-02-20] MEDS: FUROSEMIDE 40 MG TABLET PO SCH ×2 (08:43→17:09)
[2021-02-20] MEDS: ASCORBIC ACID 500 MG TABLET PO SCH (08:43)
[2021-02-20] MEDS ORDERED: THIAMINE HCL 100 MG TABLET PO SCH (09:00)
[2021-02-20] MEDS: ONDANSETRON 4 MG/2 ML VIAL IV PRN (10:33)
[2021-02-20 13:42] LABS: HBsAG Nonreactive (Nonreactive)
[2021-02-20 15:33] LABS: HIV AG/AB 4TH GEN Non-reactive (Non-reactive)
[2021-02-20] MEDS ORDERED: EPOETIN ALFA-EPBX 4,000 UNIT/ML VIAL SQ ONE (16:00)
--- NOTE | 2021-02-20 17:27 | PN ---
Date of Progress Note: 02/20/2021 Subjective: The patient is alert, awake, and more interactive compared to yesterday. He seems to be a little bit more energetic. is by the bedside. The patient seems to be improving somewhat co mpared to even yesterday. He is tolerating feeds through his PEG tube. He is taking some p.o. intak e cautiously every now and then. understands the risk of aspiration and has been advised about taking precautions. The patient with his improved condition is hoping that he can go to the [facility] for rehabilitation. OT is in the room, currently evaluating him to see if this can be done if in surance will approve and if the patient will be a good candidate for this. The patient otherwise den ies any pain currently. He seems to have improved in his kidney function with creatinine being in th e 1.5 in lower range with 1.46 today and reasonably stable. His sodium, however, has gone up slightl y at 145. His potassium is 3.8. His chloride is 107. Bicarb is 33. He also has a hemoglobin that is on the lower side at about 7.7. Physical Examination: Vital Signs: His vitals were stable with blood pressure in the 150 range. Last blood pressure was 1 50/68, pulse at about 60 and regular, respirations around 14 and comfortable, O2 sats are at 95% on r oom air. Lungs: Clear to auscultation. Abdomen: Soft. Extremities: Do not reveal any edema. The patient is weak with decreased muscle mass and has genera l weakness, which seems to have improved overall, but the patient is still quite weak and unable to g et around on his own. Laboratory Data: His lab work reviewed. Labs show WBC 6.4, hemoglobin 7.7, hematocrit 23.6, platele t count of 121. Chemistry shows sodium 145, potassium 3.8, chloride 107, bicarb 33, BUN 69, creatini ne 1.46, glucose 163, albumin 2.6. Assessment And Plan: I have counseled the patient's on improving and being cautious with potass ium intake and improving his diet and hydration. We will continue to monitor with BMP tomorrow. If sodium continues to stay high, we will consider giving him a small dose of D5W to improve the sodium in the low 140 or in the high 130 range. The patient clinically does look improved. He may qualify for physical therapy on fifth floor and is being evaluated for that right now. Given his anemia whic h was likely at least partially secondary to kidney disease, we will go ahead and give him a shot of Retacrit at 4000 units subcu. Creatinine seems to have improved. The patient's volume status seems to be close to euvolemic. His hyperkalemia was likely in the setting of him taking Pedialyte. I hav e counseled the to be careful with potassium intake given the patient's chronic kidney disease. I appreciate your consultation. We will continue to follow the patient with you to keep the volume status and electrolytes appropriate and adjust as needed. /ERLIN Voice ID: [id number] Report ID: [id number]
--- NOTE | 2021-02-20 18:26 | P.PN ---
Subjective Date of Service: 02/20/21 Chief Complaint: Diarrhea Subjective: No new changes, Improving, Working w/ PT Review of Systems General: Weakness Eyes: Unremarkable ENT: Unremarkable Respiratory: Unremarkable Cardiovascular: Unremarkable Gastrointestinal: Unremarkable Genitourinary: Unremarkable Musculoskeletal: Unremarkable Integumentary: Unremarkable Neurological: Weakness Lymphatics: Unremarkable Physical Examination - Vital Signs Temperature: 98.2 F Blood Pressure: 169/76 Pulse: 60 Respirations: 18 Pulse Ox (%): 96 - Physical Exam General: Alert, In no apparent distress, Oriented x3 HEENT: Atraumatic, PERRLA, EOMI Neck: Supple, JVD not distended Respiratory: Clear to auscultation bilaterally, Normal air movement Cardiovascular: Regular rate/rhythm, Normal S1 S2 Capillary refill: <2 Seconds Gastrointestinal: Normal bowel sounds, No tenderness Musculoskeletal: No tenderness Integumentary: No rashes Neurological: Normal speech, Normal tone, Normal affect Lymphatics: No axilla or inguinal lymphadenopathy External genitalia: Deferred Rectal: Deferred Assessment And Plan - Plan Acute kidney injury superimposed on CKD 3 with hyperkalemia, bradycardia: Renal function stable. Patient appears to be at his baseline. Patient doing well. Continue Lasix. Physical therapy recommends inpatient rehab versus other. Family and patient want patient to go to inpatient rehab. We will pursue inpatient rehab. services mgr to help with this. Will adjust medications accordingly Dyspnea secondary to acute on chronic diastolic congestive heart failure: Continue Lasix. Patient with history of diastolic dysfunction. Continue with nephrology and cardiology recommendation. Diarrhea: Continue IV Flagyl. Blood and stool cultures pending. Diabetes mellitus type 2: Continue Accu-Cheks. Continue sliding scale. PEG tube in place status post aspiration pneumonia: She with history of aspiration. Aspiration precaution in place. Speech therapy on board . Speech recommends mechanical soft ground with thin liquid. Anemia of chronic disease with iron deficiency: Monitor hemoglobin. Transfuse if hemoglobin less than 7.0. Epoetin trista ordered by Event Av Operator. Continue Protonix twice daily and Carafate. Provide iron supplementation. Chronic Holcomb catheter with history of urinary retention, UTIs: Urine culture negative. Will monitor closely. History of CAD with previous CABG: Continue to hold aspirin, Plavix, beta- virgilio and calcium channel virgilio. Hypertension: Hold beta-virgilio and calcium channel virgilio. Continue Cardura. Hyperlipidemia: Continue medication. Thrombocytopenia: Hold aspirin and Plavix DVT PPX: SCD Code status: Full Discharge Plan: Patient desires inpatient rehab. We will pursue inpatient rehab Discharge Plan: Other (Inpatient Rehab) Plan to discharge in: 24 Hours Physician Review: Patient Assessed, Agree with Above Assessment and Plan Critical Care: No
[2021-02-20] MEDS: DOXAZOSIN 2 MG TAB FT SCH (20:09)
[2021-02-20] MEDS ORDERED: NA CHLORIDE 0.9% 250 ML ONE (21:28)
[2021-02-21] MEDS: METRONIDAZOLE 500mg IVPB 500 MG/100 ML BAG IV SCH ×3 (00:22→16:40)
[2021-02-21 05:33] LABS: Absolute Lymphocytes (CBC) 1.1 K/uL (0.7-4.9); Basophils % 1.1 % (0-1.3); Hematocrit 24.2 % (39.6-49.0); MPV 10.3 fL (7.6-11.3); RBC Red Blood Cell Count 3.11 M/uL (4.33-5.43)
[2021-02-21 05:44] LABS: Potassium 3.6 mmol/L (3.5-5.1)
[2021-02-21] MEDS: INSULIN -REGULAR HUMAN 50 UNIT/0.5 ML ML SQ SCH ×4 (07:30→20:38)
[2021-02-21] MEDS: ASCORBIC ACID 500 MG TABLET PO SCH (07:47)
[2021-02-21] MEDS: ESCITALOPRAM 20 MG TAB FT SCH (07:47)
[2021-02-21] MEDS: PANTOPRAZOLE 40MG TABLET PO SCH ×2 (07:47→16:40)
[2021-02-21] MEDS: GABAPENTIN 300 MG CAP FT SCH ×2 (07:47→20:39)
[2021-02-21] MEDS: FUROSEMIDE 40 MG TABLET PO SCH ×2 (07:47→16:40)
[2021-02-21] MEDS: GLUCERNA 1.5 CAL 1,000 ML BOT FT SCH ×4 (07:48→20:40)
[2021-02-21] MEDS: SUCRALFATE 1GM/10ML UCUP FT SCH ×4 (07:52→20:38)
[2021-02-21] MEDS: GUAIFENESIN/CODEINE 5ML UCUP PO PRN ×2 (07:52→20:37)
[2021-02-21] MEDS: ONDANSETRON 4 MG/2 ML VIAL IV PRN (09:26)
--- NOTE | 2021-02-21 15:56 | PN ---
Date of Progress Note: 02/21/2021 Subjective: The patient is alert, awake, looks a little bit more comfortable compared to yesterday, but still quite weak. Significant other is in the room with him. She is also his funeral pre arrangement counselor, has bee n quite involved with his care lately. However, the patient is being evaluated for physical therapy. He has the physical therapist in the room trying to assess him. He is having some difficulty even standing up on his own without significant assistance and not sure if he is going to be strong enough to participate with 3 to 4 hours of physical therapy required for him to be placed at the [facility] in [facility] for physical therapy. Objective: Vital Signs: From my evaluation, the patient's vitals are stable. Blood pressures have been running in the 130s and 140s range. Last blood pressure in the morning was 140/63. He has had a blood pressure after that at 162/72, but the patient has been trying to get some physical therapy a nd then when he moves around the blood pressure does go up. Pulse is about 50 to 60 and regular, res pirations are around 14 and comfortable. He is afebrile. Lungs: Clear to auscultation. Abdomen: Soft. The patient does have a PEG tube in place. Extremities: Do not reveal any edema. He does have significant muscle wasting and weakness bilatera lly. Unable to stand on his own. Laboratory Data: Reviewed. WBC count is 6.6, hemoglobin 7.8, hematocrit 24.2, platelet count of 134 . Chemistry shows sodium 142, potassium 3.6, chloride 106, bicarb is 34, BUN 59, creatinine 1.39. H is sodium has improved. His creatinine has improved as well. The patient is tolerating p.o. intake slight bit with aspiration precautions, but gets most of his nutrition from his PEG tube. Calcium is 8.7. Assessment And Plan: The patient with acute kidney injury on chronic kidney disease, frequent urinar y tract infections in the past, has a percutaneous endoscopic gastrostomy tube, deconditioned, malnut rition, protein-calorie malnutrition, currently with volume status close to euvolemia. Continue to m onitor as long as he keeps his p.o. intake and percutaneous endoscopic gastrostomy tube intake reason able and cautionary. We may be able to continue Lasix as is, otherwise, Lasix and/or volume intake m ay need to be adjusted going forward. His sodium has improved. At this point from the kidney point of view, he is not requiring any acute care. However, given his significant weakness and frequent ho spitalizations, there may be some benefit in getting him inpatient rehab to get him stronger and to p revent further hospitalizations, fall precautions, and also to assist him with improving balance and muscle strength. /ERLIN Voice ID: [id number] Report ID: [id number]
--- NOTE | 2021-02-21 17:14 | P.PN ---
Subjective Date of Service: 02/21/21 Chief Complaint: Diarrhea No major changes from yesterday. Patient coughing occasionally. No fever. Patient tolerating PEG tube feeding and mechanical soft diet. Diarrhea stopped. Physical Examination - Vital Signs Temperature: 98.7 F Blood Pressure: 166/61 Pulse: 61 Respirations: 18 Pulse Ox (%): 97 - Physical Exam General: Alert, In no apparent distress, Oriented x3 HEENT: Mucous membr. moist/pink Neck: JVD not distended Respiratory: Clear to auscultation bilaterally, Normal air movement Cardiovascular: No edema, Regular rate/rhythm, Normal S1 S2 Gastrointestinal: Normal bowel sounds, Soft and benign, Non-distended Musculoskeletal: No swelling Neurological: Normal strength at 5/5 x4 extr - Studies Microbiology Data (last 24 hrs): 02/16/21 16:45 Blood - Blood Aerobic Blood Culture - Final No growth in 5 days. 02/16/21 16:45 Blood - Blood Anaerobic Blood Culture - Final No growth in 5 days. 02/16/21 16:35 Blood - Blood Aerobic Blood Culture - Final No growth in 5 days. 02/16/21 16:35 Blood - Blood Anaerobic Blood Culture - Final No growth in 5 days. Assessment And Plan Physician Review: Patient Assessed, Agree with Above Assessment and Plan Physician Review Additional Text: COVID: Negative Venous doppler: FINDINGS: Normal compressibility, flow augmentation, phasic flow and spontaneous flow are identified in the left and right lower extremity common femoral, superficial femoral, popliteal and posterior tibial veins. No intraluminal filling defects seen. IMPRESSION: No DVT in either lower extremity. Chest x-ray: COMPARISON: Chest Single View dated 02/17/2021; Chest Single View dated 02/16/2021; Chest Single View dated 02/08/2021; Chest Single View dated 12/19/2020 FINDINGS: Improving edema compared with yesterday. Cardiomegaly.No acute osseous abnormality. Small layering effusions which have likely decreased. IMPRESSION: Improving edema. CT Scan AB: COMPARISON: November 2020 TECHNIQUE: Computed axial tomography of the abdomen and pelvis was obtained. IV and oral contrast were not requested. All CT scans are performed using dose optimization technique as appropriate and may include automated exposure control or mA/KV adjustment according to patient size. FINDINGS: The evaluation of solid organs, vessels and bowel is limited secondary to the lack of contrast administration. Small to moderate right and small left pleural effusions with bibasilar atelectasis The liver, spleen, pancreas, adrenals and kidneys appear grossly normal. Increased density within the gallbladder. Atherosclerotic disease. . No evidence diverticulitis. Diffuse edema within the subcutaneous tissues. A percutaneous tube within the stomach. Small amount of ascites. Holcomb catheter within the bladder. Old vertebral com pression fractures IMPRESSION: Small to moderate right and small left pleural effusions Anasarca Increased density within the gallbladder may indicate stones Impression: Acute kidney injury superimposed on CKD 3 with hyperkalemia, bradycardia Dyspnea secondary to acute on chronic diastolic congestive heart failure Diarrhea Diabetes mellitus type [address] status post aspiration pneumonia Anemia of chronic disease with iron deficiency Chronic Holcomb catheter with history of urinary retention, UTIs History of CAD with previous CABG Hypertension Hyperlipidemia Plan: Acute kidney injury superimposed on CKD 3 with hyperkalemia, bradycardia: Renal function stable. Patient appears to be at his baseline. Continue oral Lasix Physical therapy recommends inpatient rehab versus other. Dyspnea secondary to acute on chronic diastolic congestive heart failure: Patient appear compensated for CHF On Lasix to 40 mg b.i.d. Continue with nephrology and cardiology recommendation. Diarrhea: Continue IV Flagyl. Diabetes mellitus type 2: Continue Accu-Cheks. Continue sliding scale. PEG tube in place status post aspiration pneumonia: He with history of aspiration. Aspiration precaution in place. Speech evaluated patient and recommends mechanical soft ground with thin liquid. Anemia of chronic disease with iron deficiency: Hemoglobin is stable. Monitor hemoglobin. Transfuse if hemoglobin less than 7.0. Continue Protonix twice daily and Carafate.Iron supplementation. Chronic Holcomb catheter with history of urinary retention, UTIs: Urine culture negative. History of CAD with previous CABG: Continue to hold aspirin, Plavix, beta- virgilio and calcium channel virgilio. Hypertension: Continue Cardura. Patient currently hypertensive. Resume other home antihypertensives. Hyperlipidemia: Continue medication. Thrombocytopenia: Improved. Resume Plavix DVT PPX: SCD Code status: Full Discharge Plan: Patient desires inpatient rehab. We will pursue inpatient rehab
[2021-02-21] MEDS: METOPROLOL TAR 50 MG TAB FT SCH (20:38)
[2021-02-21] MEDS: DOXAZOSIN 2 MG TAB FT SCH (20:39)
[2021-02-21] MEDS: TRAZODONE 150 MG TAB FT SCH (20:39)
[2021-02-22] MEDS: METRONIDAZOLE 500mg IVPB 500 MG/100 ML BAG IV SCH ×2 (00:36→08:07)
[2021-02-22] MEDS: ONDANSETRON 4 MG/2 ML VIAL IV PRN ×2 (05:21→11:15)
[2021-02-22 05:40] LABS: Absolute Lymphocytes (CBC) 1.1 K/uL (0.7-4.9); Hematocrit 23.2 % (39.6-49.0); Lymphocytes % 16.6 % (15.3-44.8); MPV 10.2 fL (7.6-11.3); RBC Red Blood Cell Count 2.99 M/uL (4.33-5.43)
[2021-02-22 05:46] LABS: Potassium 3.9 mmol/L (3.5-5.1)
[2021-02-22] MEDS: INSULIN -REGULAR HUMAN 50 UNIT/0.5 ML ML SQ SCH ×4 (07:30→20:55)
[2021-02-22] MEDS: SUCRALFATE 1GM/10ML UCUP FT SCH ×4 (08:03→20:43)
[2021-02-22] MEDS: ESCITALOPRAM 20 MG TAB FT SCH (08:04)
[2021-02-22] MEDS: FUROSEMIDE 40 MG TABLET PO SCH ×2 (08:05→16:27)
[2021-02-22] MEDS: METOPROLOL TAR 50 MG TAB FT SCH ×2 (08:05→20:42)
[2021-02-22] MEDS: ASCORBIC ACID 500 MG TABLET PO SCH (08:05)
[2021-02-22] MEDS: AMLODIPINE 10 MG TAB FT SCH (08:06)
[2021-02-22] MEDS: PANTOPRAZOLE 40MG TABLET PO SCH ×2 (08:06→16:27)
[2021-02-22] MEDS: CLOPIDOGREL 75 MG TABLET FT SCH (08:06)
[2021-02-22] MEDS: GABAPENTIN 300 MG CAP FT SCH ×2 (08:07→20:42)
[2021-02-22] MEDS: GLUCERNA 1.5 CAL 1,000 ML BOT FT SCH ×4 (08:08→20:43)
[2021-02-22] MEDS: GUAIFENESIN/CODEINE 5ML UCUP PO PRN (08:16)
[2021-02-22 10:04] LABS: Anisocytosis 1+; Basophilic Stippling 1+; Blood Morphology Comment NOTED (NOT SEEN); Platelet Estimate DECR; White Blood Cell Scan OK (OK)
[2021-02-22] MEDS ORDERED: DOCUSATE NA/SENNA CONC 1 TAB PO PRN (11:36)
[2021-02-22] MEDS ORDERED: BISACODYL 10 MG RECTAL SUPP PR ONE (14:22)
[2021-02-22] MEDS ORDERED: POLYETHYL GLY 3350 17 GM/DOSE PO PRN (14:22)
[2021-02-22] MEDS: PSYLLIUM 1 PKT PO SCH (14:23)
--- NOTE | 2021-02-22 14:31 | P.PN ---
Subjective Date of Service: 02/22/21 Chief Complaint: Diarrhea Patient complaining of persistent cough and also for sleep because of the coughing. No fever. Patient tolerating PEG tube feeding and mechanical soft diet. No diarrhea Physical Examination - Vital Signs Temperature: 97.8 F Blood Pressure: 188/77 Pulse: 56 Respirations: 17 Pulse Ox (%): 92 - Physical Exam General: Alert, In no apparent distress HEENT: Mucous membr. moist/pink Neck: JVD not distended Respiratory: Crackles/rales (Mild bibasilar crackles) Cardiovascular: No edema, Regular rate/rhythm, Normal S1 S2 Gastrointestinal: Normal bowel sounds, Soft and benign, Non-distended, No tenderness Musculoskeletal: No swelling Integumentary: No rashes Neurological: Normal strength at 5/5 x4 extr - Studies Microbiology Data (last 24 hrs): 02/16/21 16:45 Blood - Blood Aerobic Blood Culture - Final No growth in 5 days. 02/16/21 16:45 Blood - Blood Anaerobic Blood Culture - Final No growth in 5 days. 02/16/21 16:35 Blood - Blood Aerobic Blood Culture - Final No growth in 5 days. 02/16/21 16:35 Blood - Blood Anaerobic Blood Culture - Final No growth in 5 days. Assessment And Plan Physician Review: Patient Assessed, Agree with Above Assessment and Plan Physician Review Additional Text: COVID: Negative Venous doppler: FINDINGS: Normal compressibility, flow augmentation, phasic flow and spontaneous flow are identified in the left and right lower extremity common femoral, superficial femoral, popliteal and posterior tibial veins. No intraluminal filling defects seen. IMPRESSION: No DVT in either lower extremity. Chest x-ray: COMPARISON: Chest Single View dated 02/17/2021; Chest Single View dated 02/16/2021; Chest Single View dated 02/08/2021; Chest Single View dated 12/19/2020 FINDINGS: Improving edema compared with yesterday. Cardiomegaly.No acute osseous abnormality. Small layering effusions which have likely decreased. IMPRESSION: Improving edema. CT Scan AB: COMPARISON: November 2020 TECHNIQUE: Computed axial tomography of the abdomen and pelvis was obtained. IV and oral contrast were not requested. All CT scans are performed using dose optimization technique as appropriate and may include automated exposure control or mA/KV adjustment according to patient size. FINDINGS: The evaluation of solid organs, vessels and bowel is limited secondary to the lack of contrast administration. Small to moderate right and small left pleural effusions with bibasilar atelectasis The liver, spleen, pancreas, adrenals and kidneys appear grossly normal. Increased density within the gallbladder. Atherosclerotic disease. . No evidence diverticulitis. Impression: Acute kidney injury superimposed on CKD 3 with hyperkalemia, bradycardia Dyspnea secondary to acute on chronic diastolic congestive heart failure Diarrhea Diabetes mellitus type [address] status post aspiration pneumonia Anemia of chronic disease with iron deficiency Chronic Holcomb catheter with history of urinary retention, UTIs History of CAD with previous CABG Hypertension Hyperlipidemia Plan: Acute kidney injury superimposed on CKD 3 with hyperkalemia, bradycardia: Renal function stable. Patient appears to be at his baseline. Continue oral Lasix Dyspnea secondary to acute on chronic diastolic congestive heart failure: Patient appear compensated for CHF On Lasix to 40 mg b.i.d. Continue with nephrology and cardiology recommendation. Will get chest x-ray to evaluate the persistent cough. Diarrhea: Resolved. Antibiotics discontinued. Diabetes mellitus type 2: Continue Accu-Cheks. Continue sliding scale. PEG tube in place status post aspiration pneumonia: He with history of aspiration. Aspiration precaution in place. Speech evaluated patient and recommends mechanical soft ground with thin liquid. Chest x-ray ordered to re- evaluate due to persistent cough. Anemia of chronic disease with iron deficiency: Hemoglobin is stable. Monitor hemoglobin. Transfuse if hemoglobin less than 7.0. Continue Protonix twice daily and Carafate. Iron supplementation. Chronic Holcomb catheter with history of urinary retention, UTIs: Urine culture negative. History of CAD with previous CABG: Thrombocytopenia improved. Resume aspirin, Plavix, beta-virgiilo and calcium channel virgilio. Hypertension: Continue Cardura. Patient currently hypertensive. Resume other home antihypertensives. Hyperlipidemia: Continue medication. Thrombocytopenia: Improved. Resumed Plavix DVT PPX: SCD Code status: Full Discharge Plan: Patient desires inpatient rehab. We will pursue inpatient rehab
--- NOTE | 2021-02-22 15:52 | RAD REPORT ---
EXAM DESCRIPTION: Roger Single View02/22/2021 3:27 pm CLINICAL HISTORY: Cough COMPARISON: February 19, 2021 FINDINGS: No significant change in the bilateral pleural effusions and and bibasilar atelectasis or pneumonia. Upper lobes are clear. Heart remains enlarged. Postsurgical changes involve chest
--- NOTE | 2021-02-22 19:09 | P.PN ---
Date of Service: 02/22/21 Vital Signs Temp Pulse Resp BP Pulse Ox 97.6 F 56 16 188/77 H 94 02/22/21 16:00 02/22/21 16:27 02/22/21 16:00 02/22/21 16:27 02/22/21 16:00 Medications Acetaminophen (Acetaminophen 500 Mg Tab) 500 mg FT Q4HP PRN PRN Reason: TEMP > 100' F Albuterol Sulfate (Albuterol 2.5 Mg/3 Ml Neb [place]) 2.5 mg NEB [id number] PRN PRN Reason: WHEEZING Last Admin: 02/17/21 21:37 Dose: 2.5 mg Documented by: Amlodipine Besylate (Amlodipine 10 Mg Tab) 10 mg FT DAILY [facility], [facility] Last Admin: 02/22/21 08:06 Dose: 10 mg Documented by: Ascorbic Acid (Ascorbic Acid 500 Mg Tablet) 2,000 mg PO DAILY [facility], [facility] Last Admin: 02/22/21 08:05 Dose: 2,000 mg Documented by: Aspirin (Aspirin Ec 81 Mg Tab) 81 mg PO DAILY [facility], [facility]1983 Clopidogrel Bisulfate (Clopidogrel 75 Mg Tablet) 75 mg FT DAILY [facility], [facility] Last Admin: 02/22/21 08:06 Dose: 75 mg Documented by: Doxazosin Mesylate (Doxazosin 2 Mg Tab) 2 mg FT BEDTIME [facility], [facility]1983 Last Admin: 02/21/21 20:39 Dose: 2 mg Documented by: Enteral Nutritional Formula (Glucerna 1.5 Higinio 1,000 Ml Bot) 360 ml FT QID [facility], [facility]1983 Last Admin: 02/22/21 16:28 Dose: 360 ml Documented by: Escitalopram Oxalate (Escitalopram 20 Mg Tab) 20 mg FT DAILY [facility], [facility] Last Admin: 02/22/21 08:04 Dose: 20 mg Documented by: Ferrous Sulfate (Ferrous Sulfate 220 Mg/5 Ml Elixir) 220 mg FT TID [facility], [facility] Last Admin: 02/22/21 14:23 Dose: 220 mg Documented by: Furosemide (Furosemide 40 Mg Tablet) 40 mg PO BIDL [facility], [facility] Last Admin: 02/22/21 16:27 Dose: 40 mg Documented by: Gabapentin (Gabapentin 300 Mg Cap) 300 mg FT BID [facility] Last Admin: 02/22/21 08:07 Dose: 300 mg Documented by: Guaifenesin/Codeine Phosphate (Guaifenesin/Codeine 5ml Ucup) 5 ml PO QIDP PRN PRN Reason: COUGH Last Admin: 02/22/21 08:16 Dose: 5 ml Documented by: Insulin Human Regular (Insulin -Regular Human 50 Unit/0.5 Ml Ml) 0 unit SQ ACHS [facility], [facility]; Protocol Last Admin: 02/22/21 15:56 Dose: Not Given Documented by: Ipratropium [place] (Ipratropium Brom 0.5mg/2.5ml) 0.5 mg NEB [id number] PRN PRN Reason: WHEEZING Metoprolol Tartrate (Metoprolol Tar 50 Mg Tab) 100 mg FT BID [facility] Last Admin: 02/22/21 08:05 Dose: 100 mg Documented by: Ondansetron HCl (Ondansetron 4 Mg/2 Ml Vial) 4 mg IV Q6HP PRN PRN Reason: NAUSEA / VOMITING Last Admin: 02/22/21 11:15 Dose: 4 mg Documented by: Pantoprazole Sodium (Pantoprazole 40mg Tablet) [facility]; Protocol Last Admin: 02/22/21 16:27 Dose: 40 mg Documented by: Polyethylene Glycol (Polyethyl Gly 3350 17 Gm/Dose) 17 gm PO DAILY PRN PRN Reason: CONSTIPATION Psyllium Hydrophilic Mucilloid (Psyllium 1 Pkt) 1 pkt PO DAILY [facility], [facility]1983 Stop: 02/24/21 09:01 Last Admin: 02/22/21 14:23 Dose: 1 pkt Documented by: Senna (Senosides 8.6 Mg Tab) 17.2 mg PO BID [facility] Senna/Docusate Sodium (Docusate Na/Senna Conc 1 Tab) 1 tab PO DAILY PRN PRN Reason: CONSTIPATION Sodium Chloride (Flush Normal Saline 10 Ml) 10 ml IV BID [facility], [facility] Last Admin: 02/22/21 08:07 Dose: 10 ml Documented by: Sucralfate (Sucralfate 1gm/10ml Ucup) 1 gm FT QID [facility], [facility] Last Admin: 02/22/21 16:27 Dose: 1 gm Documented by: Trazodone HCl (Trazodone 150 Mg Tab) 150 mg FT BEDTIME [facility], [facility] Last Admin: 02/21/21 20:39 Dose: 150 mg Documented by: Microbiology Results 02/16/21 16:45 Blood - Blood Aerobic Blood Culture - Final No growth in 5 days. 02/16/21 16:45 Blood - Blood Anaerobic Blood Culture - Final No growth in 5 days. 02/16/21 16:35 Blood - Blood Aerobic Blood Culture - Final No growth in 5 days. 02/16/21 16:35 Blood - Blood Anaerobic Blood Culture - Final No growth in 5 days. 02/16/21 16:19 Stool Stool Occult Blood (JULIOCESAR) - Final BUTCHER HEAD Assessment/ Plan: Nephrology Feeling worse today. Malaise and fatigue. No dyspnea or chest pain. No acute events overnight. Vitals, medications, blood work and imaging reviewed. General: In no apparent distress, Cooperative HEENT: Atraumatic Neck: Supple Respiratory: Clear to auscultation bilaterally Cardiovascular: No edema, Regular rate/rhythm Gastrointestinal: Soft and benign, Non-distended Musculoskeletal: No clubbing, No contractures Integumentary: No rashes, No cyanosis, Erythema Neurological: Normal speech Blood work reviewed in the chart. Imagings Data: EXAM DESCRIPTION: CT - Abdomen Pelvis Wo Contrast - 02/17/2021 8:04 am CLINICAL HISTORY: Abdominal pain /diarrhea COMPARISON: November 2020 TECHNIQUE: Computed axial tomography of the abdomen and pelvis was obtained. IV and oral contrast were not requested. All CT scans are performed using dose optimization technique as appropriate and may include automated exposure control or mA/KV adjustment according to patient size. FINDINGS: The evaluation of solid organs, vessels and bowel is limited secondary to the lack of contrast administration. Small to moderate right and small left pleural effusions with bibasilar atelectasis The liver, spleen, pancreas, adrenals and kidneys appear grossly normal. Increased density within the gallbladder. Atherosclerotic disease. . No evidence diverticulitis. Diffuse edema within the subcutaneous tissues. A percutaneous tube within the stomach. Small amount of ascites. Holcomb catheter within the bladder. Old vertebral compression fractures IMPRESSION: Small to moderate right and small left pleural effusions Anasarca Increased density within the gallbladder may indicate stones EXAM DESCRIPTION: RADChest Single View02/17/2021 5:54 am CLINICAL HISTORY: Shortness of breath COMPARISON: February 16, 2021 FINDINGS: No significant change in the bilateral pulmonary opacities, cardiomegaly and pleural effusions right greater than left. Postsurgical changes involve chest IMPRESSION: No significant change since the prior exam. The patient likely has pulmonary edema EXAM DESCRIPTION: US - Extrem Venous W Compress Jg - 02/16/2021 5:12 pm CLINICAL HISTORY: SWELLING, leg pain COMPARISON: None. TECHNIQUE: Real-time sonographic evaluation of the bilateral lower extremity common femoral, superficial femoral, popliteal and posterior tibial veins was performed. FINDINGS: Normal compressibility, flow augmentation, phasic flow and spontaneous flow are identified in the left and right lower extremity common femoral, superficial femoral, popliteal and posterior tibial veins. No intraluminal filling defects seen. IMPRESSION: No DVT in either lower extremity. Conclusions/Impression: CKD III with proteinuria -No NSAIDs Hyperkalemia -Kayexalate prn -Continue diuresis HTN with CKD/ CHF -Continue Doxazosin Diastolic CHF, A/C -Continue furosemide DM II with CKD -RISS Moderate malnutrition -Continue Glucerna Anemia in chronic illness -Monitor H&H
[2021-02-22] MEDS: ALBUTEROL 2.5 MG/3 ML NEB SOL NEB PRN (20:30)
[2021-02-22] MEDS: TRAZODONE 150 MG TAB FT SCH (20:42)
[2021-02-22] MEDS: DOXAZOSIN 2 MG TAB FT SCH (20:42)
[2021-02-22] MEDS: SENOSIDES 8.6 MG TAB PO SCH (20:43)
[2021-02-23 05:41] LABS: Absolute Lymphocytes (CBC) 1.3 K/uL (0.7-4.9); Basophils % 1.1 % (0-1.3); Hematocrit 23.3 % (39.6-49.0); Lymphocytes % 21.7 % (15.3-44.8); MPV 9.9 fL (7.6-11.3); RBC Red Blood Cell Count 3.02 M/uL (4.33-5.43)
[2021-02-23 06:00] LABS: Potassium 3.5 mmol/L (3.5-5.1)
[2021-02-23] MEDS: INSULIN -REGULAR HUMAN 50 UNIT/0.5 ML ML SQ SCH ×4 (07:30→21:00)
[2021-02-23] MEDS: FUROSEMIDE 40 MG TABLET PO SCH ×2 (08:31→16:59)
[2021-02-23] MEDS: ASCORBIC ACID 500 MG TABLET PO SCH (08:31)
[2021-02-23] MEDS: ESCITALOPRAM 20 MG TAB FT SCH (08:32)
[2021-02-23] MEDS: PANTOPRAZOLE 40MG TABLET PO SCH ×2 (08:32→17:00)
[2021-02-23] MEDS: CLOPIDOGREL 75 MG TABLET FT SCH (08:32)
[2021-02-23] MEDS: AMLODIPINE 10 MG TAB FT SCH (08:32)
[2021-02-23] MEDS: GABAPENTIN 300 MG CAP FT SCH ×2 (08:33→21:51)
[2021-02-23] MEDS: METOPROLOL TAR 50 MG TAB FT SCH ×2 (08:33→21:00)
[2021-02-23] MEDS: SENOSIDES 8.6 MG TAB PO SCH ×2 (08:33→21:52)
[2021-02-23] MEDS: PSYLLIUM 1 PKT PO SCH (08:34)
[2021-02-23] MEDS: SUCRALFATE 1GM/10ML UCUP FT SCH ×4 (08:34→21:47)
[2021-02-23] MEDS: ASPIRIN EC 81 MG TAB PO SCH (08:34)
[2021-02-23] MEDS: GLUCERNA 1.5 CAL 1,000 ML BOT FT SCH ×4 (08:35→21:00)
--- NOTE | 2021-02-23 13:41 | RAD REPORT ---
EXAM DESCRIPTION: RAD - Chest Single View - 02/23/2021 1:29 pm CLINICAL HISTORY: Coughing, vascular congestion COMPARISON: Portable chest February 22, CT abdomen February 17 TECHNIQUE: AP portable chest image was obtained 02/23/2021 1:29 pm . FINDINGS: Extensive chronic interstitial lung changes are present. Left hemidiaphragm elevation agai n noted. Pleural effusion is present on the right not significantly different. Minimal left pleural e ffusion is likely present. Right base infiltrate and/ or atelectasis changes are not significantly di fferent from comparison. Cardiomegaly is stable. No significant vascular engorgement seen. Sternotomy wires are in place. No pneumothorax identified. No acute bony abnormality seen. No acute aortic findings suspected. IMPRESSION: Pleural effusions with lung base infiltrate and/ or atelectasis similar to comparison. Stable mild cardiomegaly.
--- NOTE | 2021-02-23 13:43 | RAD REPORT ---
EXAM DESCRIPTION: RAD - Abdomen 1 View (KUB) - 02/23/2021 1:29 pm CLINICAL HISTORY: Constipation COMPARISON: Abdomen 1 View (KUB) dated 11/23/2020 FINDINGS: Large stool volume distends the rectum to approximately 7 cm. Elsewhere in the colon stool volume is [id number] with no abnormal distention. No small bowel dilatation seen. No free air or pneumatosis. No suspicious calcifications. No significant bony findings left hip prosthesis in place. IMPRESSION: Large stool volume distends the rectum to 7 cm with remaining colon mostly decompressed with only mild to moderate volume.
[2021-02-23] MEDS: MAGNESIUM CITRATE 300 ML BOT PO SCH (14:53)
--- NOTE | 2021-02-23 16:36 | P.PN ---
Subjective Date of Service: 02/23/21 Chief Complaint: Diarrhea Patient complaining of persistent cough. Also complaining of constipation. No fever. Patient tolerating PEG tube feeding and mechanical soft diet. No diarrhea Physical Examination - Vital Signs Temperature: 97.6 F Blood Pressure: 155/57 Pulse: 53 Respirations: 16 Pulse Ox (%): 98 - Physical Exam General: In no apparent distress HEENT: Mucous membr. moist/pink Neck: JVD not distended Respiratory: Clear to auscultation bilaterally, Normal air movement Cardiovascular: No edema, Regular rate/rhythm, Normal S1 S2 Gastrointestinal: Soft and benign, Non-distended, Other (PEG tube.) Musculoskeletal: No contractures Integumentary: No rashes Neurological: Other (No focal motor deficit.) Assessment And Plan Physician Review: Patient Assessed, Agree with Above Assessment and Plan Physician Review Additional Text: Impression: Acute kidney injury superimposed on CKD 3 with hyperkalemia, bradycardia Dyspnea secondary to acute on chronic diastolic congestive heart failure Diarrhea Diabetes mellitus type [address] status post aspiration pneumonia Anemia of chronic disease with iron deficiency Chronic Holcomb catheter with history of urinary retention, UTIs History of CAD with previous CABG Hypertension Hyperlipidemia Plan: Acute kidney injury superimposed on CKD 3 with hyperkalemia, bradycardia: Renal function stable. Patient appears to be at his baseline. Continue oral Lasix Acute on chronic diastolic congestive heart failure: Patient appear compensated for CHF. Chest x-ray shows stable pleural effusion. On Lasix to 40 mg b.i.d. Diarrhea: Resolved. Antibiotics discontinued. Diabetes mellitus type 2: Continue Accu-Cheks. Continue sliding scale. PEG tube in place status post aspiration pneumonia: Patient with history of aspiration. Aspiration precaution in place. Speech evaluated patient and recommends mechanical soft ground with thin liquid. No new pneumonia and chest x-ray. Anemia of chronic disease with iron deficiency: Hemoglobin is stable. Monitor hemoglobin. Transfuse if hemoglobin less than 7.0. Continue Protonix twice daily and Carafate. Iron supplementation. Chronic Holcomb catheter with history of urinary retention, UTIs: Urine culture negative. History of CAD with previous CABG: Thrombocytopenia improved. Continue aspirin, Plavix, beta-virgilio and calcium channel virgilio. Hypertension: Continue Cardura. Patient currently hypertensive. Resume other home antihypertensives. Hyperlipidemia: Continue medication. Thrombocytopenia: Improved. Resumed Plavix DVT PPX: SCD Code status: Full Discharge Plan: Disposition to skilled rehab.
--- NOTE | 2021-02-23 20:06 | P.PN ---
Date of Service: 02/23/21 Vital Signs Temp Pulse Resp BP Pulse Ox 97.6 F 53 16 155/57 H 98 02/23/21 16:36 02/23/21 16:59 02/23/21 16:36 02/23/21 16:59 02/23/21 16:36 Medications Acetaminophen (Acetaminophen 500 Mg Tab) 500 mg FT Q4HP PRN PRN Reason: TEMP > 100' F Albuterol Sulfate (Albuterol 2.5 Mg/3 Ml Neb [place]) 2.5 mg NEB [id number] PRN PRN Reason: WHEEZING Last Admin: 02/22/21 20:30 Dose: 2.5 mg Documented by: Amlodipine Besylate (Amlodipine 10 Mg Tab) 10 mg FT DAILY [facility] Last Admin: 02/23/21 08:32 Dose: 10 mg Documented by: Ascorbic Acid (Ascorbic Acid 500 Mg Tablet) 2,000 mg PO DAILY [facility] Last Admin: 02/23/21 08:31 Dose: 2,000 mg Documented by: Aspirin (Aspirin Ec 81 Mg Tab) 81 mg PO DAILY [facility] Last Admin: 02/23/21 08:34 Dose: 81 mg Documented by: Clopidogrel Bisulfate (Clopidogrel 75 Mg Tablet) 75 mg FT DAILY [facility] Last Admin: 02/23/21 08:32 Dose: 75 mg Documented by: Doxazosin Mesylate (Doxazosin 2 Mg Tab) 2 mg FT BEDTIME [facility] Last Admin: 02/22/21 20:42 Dose: 2 mg Documented by: Enteral Nutritional Formula (Glucerna 1.5 Higinio 1,000 Ml Bot) 360 ml FT QID [facility] Last Admin: 02/23/21 17:01 Dose: 360 ml Documented by: Escitalopram Oxalate (Escitalopram 20 Mg Tab) 20 mg FT DAILY [facility] Last Admin: 02/23/21 08:32 Dose: 20 mg Documented by: Ferrous Sulfate (Ferrous Sulfate 220 Mg/5 Ml Elixir) 220 mg FT TID [facility] Last Admin: 02/23/21 14:53 Dose: 220 mg Documented by: Furosemide (Furosemide 40 Mg Tablet) 40 mg PO BIDL [facility] Last Admin: 02/23/21 16:59 Dose: 40 mg Documented by: Gabapentin (Gabapentin 300 Mg Cap) 300 mg FT BID [facility] Last Admin: 02/23/21 08:33 Dose: 300 mg Documented by: Guaifenesin/Codeine Phosphate (Guaifenesin/Codeine 5ml Ucup) 5 ml PO QIDP PRN PRN Reason: COUGH Last Admin: 02/22/21 08:16 Dose: 5 ml Documented by: Insulin Human Regular (Insulin -Regular Human 50 Unit/0.5 Ml Ml) 0 unit SQ ACHS [facility]; Protocol Last Admin: 02/23/21 16:57 Dose: 5 unit Documented by: Ipratropium Hammond (Ipratropium Brom 0.5mg/2.5ml) 0.5 mg NEB [id number] PRN PRN Reason: WHEEZING Last Admin: 02/22/21 20:30 Dose: 0.5 mg Documented by: Magnesium Citrate (Magnesium Citrate 300 Ml Bot) 300 ml PO 1X [facility] Last Admin: 02/23/21 14:53 Dose: 300 ml Documented by: Metoprolol Tartrate (Metoprolol Tar 50 Mg Tab) 100 mg FT BID [facility] Last Admin: 02/23/21 08:33 Dose: 100 mg Documented by: Ondansetron HCl (Ondansetron 4 Mg/2 Ml Vial) 4 mg IV Q6HP PRN PRN Reason: NAUSEA / VOMITING Last Admin: 02/22/21 11:15 Dose: 4 mg Documented by: Pantoprazole Sodium (Pantoprazole 40mg Tablet) 40 mg PO BIDAC [facility]; Protocol Last Admin: 02/23/21 17:00 Dose: 40 mg Documented by: Polyethylene Glycol (Polyethyl Gly 3350 17 Gm/Dose) 17 gm PO DAILY PRN PRN Reason: CONSTIPATION Psyllium Hydrophilic Mucilloid (Psyllium 1 Pkt) 1 pkt PO DAILY [facility] Stop: 02/24/21 09:01 Last Admin: 02/23/21 08:34 Dose: 1 pkt Documented by: Senna (Senosides 8.6 Mg Tab) 17.2 mg PO BID [facility] Last Admin: 02/23/21 08:33 Dose: 17.2 mg Documented by: Senna/Docusate Sodium (Docusate Na/Senna Conc 1 Tab) 1 tab PO DAILY PRN PRN Reason: CONSTIPATION Sodium Chloride (Flush Normal Saline 10 Ml) 10 ml IV BID [facility] Last Admin: 02/23/21 08:34 Dose: 10 ml Documented by: Sucralfate (Sucralfate 1gm/10ml Ucup) 1 gm FT QID [facility] Last Admin: 02/23/21 16:59 Dose: 1 gm Documented by: Trazodone HCl (Trazodone 150 Mg Tab) 150 mg FT BEDTIME [facility] Last Admin: 02/22/21 20:42 Dose: 150 mg Documented by: Microbiology Results 02/16/21 16:45 Blood - Blood Aerobic Blood Culture - Final No growth in 5 days. 02/16/21 16:45 Blood - Blood Anaerobic Blood Culture - Final No growth in 5 days. 02/16/21 16:35 Blood - Blood Aerobic Blood Culture - Final No growth in 5 days. 02/16/21 16:35 Blood - Blood Anaerobic Blood Culture - Final No growth in 5 days. 02/16/21 16:19 Stool Stool Occult Blood (JULIOCESAR) - Final [facility] Assessment/ Plan: Nephrology Feeling better today. No dyspnea or chest pain. No acute events overnight. Vitals, medications, blood work and imaging reviewed. General: In no apparent distress, Cooperative HEENT: Atraumatic Neck: Supple Respiratory: Clear to auscultation bilaterally Cardiovascular: No edema, Regular rate/rhythm Gastrointestinal: Soft and benign, Non-distended Musculoskeletal: No clubbing, No contractures Integumentary: No rashes, No cyanosis, Erythema Neurological: Normal speech Blood work reviewed in the chart. Imagings Data: EXAM DESCRIPTION: CT - Abdomen Pelvis Wo Contrast - 02/17/2021 8:04 am CLINICAL HISTORY: Abdominal pain /diarrhea COMPARISON: November 2020 TECHNIQUE: Computed axial tomography of the abdomen and pelvis was obtained. IV and oral contrast were not requested. All CT scans are performed using dose optimization technique as appropriate and may include automated exposure control or mA/KV adjustment according to patient size. FINDINGS: The evaluation of solid organs, vessels and bowel is limited secondary to the lack of contrast administration. Small to moderate right and small left pleural effusions with bibasilar atelectasis The liver, spleen, pancreas, adrenals and kidneys appear grossly normal. Increased density within the gallbladder. Atherosclerotic disease. . No evidence diverticulitis. Diffuse edema within the subcutaneous tissues. A percutaneous tube within the stomach. Small amount of ascites. Holcomb catheter within the bladder. Old vertebral compression fractures IMPRESSION: Small to moderate right and small left pleural effusions Anasarca Increased density within the gallbladder may indicate stones EXAM DESCRIPTION: Roger Single View02/17/2021 5:54 am CLINICAL HISTORY: Shortness of breath COMPARISON: February 16, 2021 FINDINGS: No significant change in the bilateral pulmonary opacities, cardiomegaly and pleural effusions right greater than left. Postsurgical changes involve chest IMPRESSION: No significant change since the prior exam. The patient likely has pulmonary edema EXAM DESCRIPTION: US - Extrem Venous W Compress Jg - 02/16/2021 5:12 pm CLINICAL HISTORY: SWELLING, leg pain COMPARISON: None. TECHNIQUE: Real-time sonographic evaluation of the bilateral lower extremity common femoral, superficial femoral, popliteal and posterior tibial veins was performed. FINDINGS: Normal compressibility, flow augmentation, phasic flow and spontaneous flow are identified in the left and right lower extremity common femoral, superficial femoral, popliteal and posterior tibial veins. No intraluminal filling defects seen. IMPRESSION: No DVT in either lower extremity. EXAM DESCRIPTION: RAD - Abdomen 1 View (KUB) - 02/23/2021 1:29 pm CLINICAL HISTORY: Constipation COMPARISON: Abdomen 1 View (KUB) dated 11/23/2020 FINDINGS: Large stool volume distends the rectum to approximately 7 cm. Elsewhere in the colon stool volume is [id number] with no abnormal distention. No small bowel dilatation seen. No free air or pneumatosis. No suspicious calcifications. No significant bony findings left hip prosthesis in place. IMPRESSION: Large stool volume distends the rectum to 7 cm with remaining colon mostly decompressed with only mild to moderate volume. Conclusions/Impression: CKD III with proteinuria -No NSAIDs Hyperkalemia/ Hypokalemia -Continue diuresis -Give Amiloride 10mg X1 HTN with CKD/ CHF -Continue Doxazosin Diastolic CHF, A/C -Continue furosemide DM II with CKD -RISS Moderate malnutrition -Continue Glucerna Anemia in chronic illness -Monitor H&H Fecal impaction -Agree with laxatives -Consider disimpaction
[2021-02-23] MEDS: DOXAZOSIN 2 MG TAB FT SCH (21:00)
[2021-02-23] MEDS: TRAZODONE 150 MG TAB FT SCH (21:51)
[2021-02-23] MEDS: ONDANSETRON 4 MG/2 ML VIAL IV PRN (23:38)
[2021-02-24 05:11] VITALS: TEMP 98
[2021-02-24 05:29] LABS: Absolute Lymphocytes (CBC) 1.1 K/uL (0.7-4.9); Basophils % 0.5 % (0-1.3); Hematocrit 23.4 % (39.6-49.0); Lymphocytes % 14.2 % (15.3-44.8); MPV 9.8 fL (7.6-11.3); RBC Red Blood Cell Count 3.04 M/uL (4.33-5.43)
[2021-02-24] MEDS: INSULIN -REGULAR HUMAN 50 UNIT/0.5 ML ML SQ SCH ×2 (07:30→11:30)
[2021-02-24] MEDS: PANTOPRAZOLE 40MG TABLET PO SCH (08:34)
[2021-02-24] MEDS: AMLODIPINE 10 MG TAB FT SCH (08:35)
[2021-02-24] MEDS: ASCORBIC ACID 500 MG TABLET PO SCH (08:36)
[2021-02-24] MEDS: ESCITALOPRAM 20 MG TAB FT SCH (08:36)
[2021-02-24] MEDS: ASPIRIN EC 81 MG TAB PO SCH (08:36)
[2021-02-24] MEDS: CLOPIDOGREL 75 MG TABLET FT SCH (08:36)
[2021-02-24] MEDS: GLUCERNA 1.5 CAL 1,000 ML BOT FT SCH ×2 (08:37→13:00)
[2021-02-24] MEDS: METOPROLOL TAR 50 MG TAB FT SCH (08:37)
[2021-02-24] MEDS: GABAPENTIN 300 MG CAP FT SCH (08:37)
[2021-02-24] MEDS: SUCRALFATE 1GM/10ML UCUP FT SCH ×2 (08:38→13:00)
[2021-02-24] MEDS: FUROSEMIDE 40 MG TABLET PO SCH (08:48)
[2021-02-24] MEDS: SENOSIDES 8.6 MG TAB PO SCH (09:00)
[2021-02-24] MEDS: PSYLLIUM 1 PKT PO SCH (09:00)
--- NOTE | 2021-02-24 09:00 | P.DS ---
Admission Date: 02/16/21 Discharge Date: 02/24/21 Disposition: [facility] Discharge Condition: FAIR Reason for Admission: Diarrhea Brief History of Present Illness: 65-year-old man with history of chronic diastolic congestive heart failure, diabetes mellitus type 2, CKD 3, iron deficiency anemia, history of CVA status post PEG tube insertion with chronic Holcomb catheter and history of urinary tract infections presentsed to the emergency department for diarrhea. Upon arrival to the emergency department patient was found to be bradycardic with heart rate between 30 and 45, further evaluation with lab work revealed hemoglobin 8.1, potassium 6.1 creatinine 1.46 GFR 49 BUN 80 glucose 141 procalcitonin 0.22 BNP 25,164. Chest x-ray demonstrates new right-sided pleural effusion with infiltrate or atelectasis in the right lower lung field findings are potentially all failure or volume overloaded but pneumonia cannot be excluded. Given patient's significant bradycardia cardiology was consulted while patient was in the emergency department, recommend correction of potassium and notification for worsening clinical status. Case was also discussed with patient's lung puller and patient given Kayexalate, calcium gluconate, dextrose and insulin and admitted for further management. Hospital Course: Impression: Acute kidney injury superimposed on CKD 3 with hyperkalemia, bradycardia Dyspnea secondary to acute on chronic diastolic congestive heart failure Diarrhea Diabetes mellitus type [address] status post aspiration pneumonia Anemia of chronic disease with iron deficiency Chronic Holcomb catheter with history of urinary retention, UTIs History of CAD with previous CABG Hypertension Hyperlipidemia Functional constipation Acute kidney injury superimposed on CKD 3 with hyperkalemia, bradycardia: Patient renal function improved to baseline. Hyperkalemia corrected, bradycardia resolved. Renal function was stable on Lasix therapy. Acute on chronic diastolic congestive heart failure: Patient initially treated with IV Lasix. Respiratory condition improved. Patient became compensated for CHF. Chest x-ray shows stable pleural effusion. Now maintained on Lasix to 40 mg b.i.d. he was on 20 mg b.i.d. Diarrhea: Treated with IV flagyl. Resolved. Diabetes mellitus type 2: Continued sliding scale. PEG tube in place status post aspiration pneumonia: Patient with history of aspiration. Aspiration precaution in place. Speech evaluated patient and recommended mechanical soft ground with thin liquid. No new pneumonia on the chest x-ray. Anemia of chronic disease with iron deficiency: Hemoglobin was stable around 7. Continued Protonix twice daily and Carafate. Iron supplementation. Chronic Holcomb catheter with history of urinary retention, UTIs: Urine culture negative. History of CAD with previous CABG: Thrombocytopenia improved. Continued aspirin, Plavix, beta-virgilio and calcium channel virgilio. Hypertension: Continued home antihypertensives. Constipation: Treated with laxatives-Dulcolax, Mag citrate, Senna and docusate. Patient discharged with senna and MiraLax for constipation prophylaxis. Vital Signs/Physical Exam: Temp Pulse Resp BP Pulse Ox 98.0 F 79 20 141/69 H 90 L 02/24/21 04:00 02/24/21 04:00 02/24/21 04:00 02/24/21 04:00 02/24/21 04:00 General: Alert, In no apparent distress, Oriented x3 HEENT: Mucous membr. moist/pink Neck: JVD not distended Respiratory: Clear to auscultation bilaterally, Normal air movement Cardiovascular: No edema, Regular rate/rhythm, Normal S1 S2 Gastrointestinal: Soft and benign, Non-distended, No tenderness Musculoskeletal: No contractures Integumentary: No rashes Neurological: Normal strength at 5/5 x4 extr Laboratory Data at Discharge: WBC 7.90 K/uL (4.3-10.9) D 02/24/21 04:59 Hgb 7.6 g/dL (13.6-17.9) L 02/24/21 04:59 Hct 23.4 % (39.6-49.0) L 02/24/21 04:59 Plt Count 152 K/uL (152-406) 02/24/21 04:59 PT 12.3 SECONDS (9.5-12.5) 02/16/21 16:35 INR 1.07 02/16/21 16:35 Sodium 141 mmol/L (136-145) 02/24/21 04:59 Potassium 4.0 mmol/L (3.5-5.1) 02/24/21 04:59 BUN 53 mg/dL (7-18) H 02/24/21 04:59 Creatinine 1.36 mg/dL (0.55-1.3) H 02/24/21 04:59 Glucose 110 mg/dL (74-106) H 02/24/21 04:59 Magnesium 2.8 mg/dL (1.8-2.4) H 02/20/21 05:14 Total Bilirubin 0.4 mg/dL (0.2-1.0) 02/20/21 05:14 AST 26 U/L (15-37) 02/20/21 05:14 ALT 56 U/L (12-78) 02/20/21 05:14 Alkaline Phosphatase 90 U/L (45-117) 02/20/21 05:14 Troponin I 0.02 ng/mL (0.0-0.045) 02/17/21 04:50 Triglycerides 14 mg/dL (<150) 02/17/21 04:50 Cholesterol 57 mg/dL (<200) 02/17/21 04:50 HDL Cholesterol 38 mg/dL (40-60) L 02/17/21 04:50 Cholesterol/HDL Ratio 1.50 02/17/21 04:50 Home Medications: Aspirin [Adult Aspirin Regimen] 81 mg FT BEDTIME 06/04/20 Atorvastatin Calcium [Lipitor] 80 mg FT BEDTIME 06/04/20 Amlodipine [Norvasc*] 10 mg FT DAILY 07/16/20 Clopidogrel Bisulfate [Plavix*] 75 mg FT DAILY 07/16/20 Escitalopram [Lexapro*] 30 mg FT DAILY 07/16/20 Gabapentin 300 mg FT BID 07/16/20 Doxazosin [Cardura*] 2 mg FT BEDTIME 30 Days #30 tab 12/08/20 Insulin Lispro [Admelog] See Protocol SQ [facility] #1 vial 12/08/20 Ascorbic Acid [Vitamin C] 2,000 mg FT TID 12/16/20 Sucralfate [Carafate] 100 mg FT Q6H 12/16/20 Trazodone HCl 150 tab FT BEDTIME 12/16/20 Ferrous Sulfate [Ferrous Sulfate Elixir*] 5 ml FT TID 02/09/21 Metoprolol Tartrate [Lopressor] 100 mg FT BID 02/09/21 Furosemide [Lasix*] 40 mg PO BID #120 tab 02/24/21 Glucerna 1.5 Higinio 360 ml FT QID #30 bot 02/24/21 Pantoprazole [Protonix Tab*] 40 mg PO BIDAC #60 tab 02/24/21 Polyethyl Gly 3350 [Glycolax*] 17 gm PO DAILY PRN #30 udbot 02/24/21 Senosides [Senokot*] 17.2 mg PO BID #120 tab 02/24/21 New Medications: Glucerna 1.5 Higinio 360 ml FT QID #30 bot Polyethyl Gly 3350 [Glycolax*] 17 gm PO DAILY PRN #30 udbot PRN Reason: Constipation Furosemide [Lasix*] 40 mg PO BID #120 tab Pantoprazole [Protonix Tab*] 40 mg PO BIDAC #60 tab Senosides [Senokot*] 17.2 mg PO BID #120 tab Physician Discharge Instructions: PROBLEM: CHF, Acute Kidney Injury, Diarrhea GOAL: Clear understanding of disease process [facility] [place]. INSTRUCTIONS: - Follow up with your primary care provider in 1-2 weeks. - Take all medications as ordered. - Return to the ER if your symptoms worsen. - Call the 2nd floor at if you have any questions regarding your hospital stay. Diet: Mechanical chopped/tube feeding Activity: Fall precautions [facility] Services Needed: Home Health Name of Company: [employer] Date or Referral: 02/24/21 IMMUNIZATION Influenza Vaccine Indicated: Influenza Vaccine Given: Date Given: Pneumonia Vaccine Indicated: Yes Pneumonia Vaccine Given: Date Given: Diet: ADA Activity: Fall precautions Followup: Aidan Rios MD [Primary Care Provider] - 1-2 Weeks (Follow up in office in 1-2 weeks. Call to schedule an appointment. ) Time spent managing pt's care (in minutes): 38
[2021-02-24 12:01] VITALS: BP 156/70
[2021-02-24 12:38] VITALS: O2SAT 94
[2021-02-24] MEDS: MAGNESIUM CITRATE 300 ML BOT PO SCH (14:00)
[2021-02-24] MEDS ORDERED: AMILORIDE HCL 5 MG TABLET FT ONE (20:15)
== END 2021-02-24 14:10 | disposition home health service (06) | DRG 291 ==
LOC: ER 15:46 → ERHOLD 18:54 → 2ND 02-17 16:48
PROVIDERS: ADMIT Family Medicine; ATTEND Family Medicine
DX: I13.0 Hypertensive heart and chronic kidney disease with heart failure and stage 1 through stage 4 chronic kidney disease, or unspecified chronic kidney disease (principal); I50.33 Acute on chronic diastolic (congestive) heart failure; N17.9 Acute kidney failure, unspecified; E46 Unspecified protein-calorie malnutrition; Z68.1 Body mass index [BMI] 19.9 or less, adult; E11.22 Type 2 diabetes mellitus with diabetic chronic kidney disease; N18.31 Chronic kidney disease, stage 3a; E87.5 Hyperkalemia; R00.1 Bradycardia, unspecified; R19.7 Diarrhea, unspecified; D50.9 Iron deficiency anemia, unspecified; I25.10 Atherosclerotic heart disease of native coronary artery without angina pectoris; E78.5 Hyperlipidemia, unspecified; K59.04 Chronic idiopathic constipation; D69.6 Thrombocytopenia, unspecified; J44.9 Chronic obstructive pulmonary disease, unspecified; Z93.1 Gastrostomy status; Z96.0 Presence of urogenital implants; Z95.1 Presence of aortocoronary bypass graft; Z86.73 Personal history of transient ischemic attack (TIA), and cerebral infarction without residual deficits; Z20.822 Contact with and (suspected) exposure to COVID-19
CPT/HCPCS: 36415; 71045; 74018; 74176; 80048; 80053; 80061; 80074; 80076; 81003; 81015; 82607; 82728; 82947; 83010; 83540; 83605; 83615; 83735; 83880; 84145; 84439; 84443; 84466; 84481; 84484; 85014; 85018; 85025; 85044; 85610; 87040; 87389; 92526; 92610; 93005; 93970; 94640; 94760; 94762; 96374; 96375; 97110; 97161; 97165; 97530; 99285; C9113; J0610; J1940; J2405; J3411; J7050; Q5106; U0003

== ENCOUNTER 2021-04-02 11:43 | Inpatient (IN) | payer OTHER ==
--- NOTE | 2021-04-02 12:48 | RAD REPORT ---
EXAM DESCRIPTION: Roger Single View04/02/2021 12:24 pm CLINICAL HISTORY: Cough COMPARISON: February 2021 FINDINGS: Mild bilateral pulmonary opacities. Heart is mildly enlarged. Postsurgical changes involve the chest Eventration left hemidiaphragm IMPRESSION: Mild bilateral pulmonary opacities probably interstitial pulmonary edema
[2021-04-02 12:49] LABS: Urine Blood 1+ (Negative); Urine Glucose Negative (Negative); Urine Protein 3+ (Negative)
[2021-04-02 12:50] LABS: Absolute Lymphocytes (CBC) 1.1 K/uL (0.7-4.9); Basophils % 0.2 % (0-1.3); Hematocrit 23.3 % (39.6-49.0); Lymphocytes % 6.1 % (15.3-44.8); MPV 10.6 fL (7.6-11.3); RBC Red Blood Cell Count 3.27 M/uL (4.33-5.43)
[2021-04-02 12:51] LABS: Protime INR 1.14
[2021-04-02] MEDS ORDERED: NA CHLORIDE 0.9% 1,000 ML ONE (13:02)
[2021-04-02 13:05] LABS: Albumin 2.7 g/dL (3.4-5.0); Bilirubin Direct 0.2 mg/dL (0-0.2); Bilirubin Total 0.5 mg/dL (0.2-1.0); Magnesium 3.2 mg/dL (1.8-2.4); Protein, Total 6.3 g/dL (6.4-8.2); Thyroid Stimulating Hormone 1.48 uIU/mL (0.360-3.740); Troponin (Emerg Dept Use Only) 0.02 ng/mL (0.0-0.045)
[2021-04-02 13:16] LABS: White Blood Cell Scan OK (OK)
[2021-04-02 13:18] LABS: Anisocytosis 1+; Blood Morphology Comment NOTED (NOT SEEN); Platelet Estimate DECR
[2021-04-02 13:19] LABS: Hypochromasia 1+; Poikilocytosis 1+
--- NOTE | 2021-04-02 15:33 | EDPHYS ---
Physician Documentation [facility] Name: Mumtaz Anderson Age: 66 yrs Sex: Male : 1955 Arrival Date: 04/02/2021 Time: 11:[address] Private MD: MAYRA Physician Homer Dang HPI: 04/02 15:23 This 66 yrs old Male presents to ER via Carried with complaints of low hr, stanley pale and weak, possible uti. 15:23 The patient presents with a history of irregular heart beat. Context: The symptoms stanley occur at rest. Onset: The symptoms/episode began/occurred today. Duration: The patient or guardian reports multiple episodes, that are intermittent. Modifying factors: The symptoms are aggravated by nothing. The symptoms are alleviated by nothing. The patient presents with urinary symptoms, hernandez, cloudy. at home, weakness, low hr, possible uti, hernandez, has peg. Associated signs and symptoms: Pertinent positives: dysuria. Associated signs and symptoms: Pertinent positives: lightheadedness. Historical: - Allergies: 11:55 Latex, Natural Rubber; jd3 11:55 Nexium D; jd3 11:55 spironolactone; jd3 - Home Meds: 11:55 aspirin 81 mg Oral chew [Active]; atorvastatin 80 mg Oral tab 1 tab once daily jd3 [Active]; calcitrol [Active]; clopidogrel 75 mg Oral tab 1 tab once daily [Active]; Carafate Oral [Active]; doxazosin Oral [Active]; ferrous sulfate 325 mg (65 mg iron) Oral tab three times a day [Active]; Lactobacillus acidophilus-pectin Oral [Active]; escitalopram oxalate 20 mg Oral tab 1 tab once daily [Active]; gabapentin Oral [Active]; Lantus Sub-Q [Active]; Lasix 40 mg Oral tab 1 tab once daily [Active]; metformin 500 mg Oral tab 1 tab 2 times per day [Active]; Metoprolol Tartrate Oral [Active]; Norvasc Oral [Active]; Novolin 70/30 Innolet Sub-Q [Active]; Toprol XL 50 mg Oral Tb24 1 tab once daily [Active]; Trazodone Oral [Active]; nystatin Topical [Active]; Tylenol [Active]; Zofran Oral [Active]; - PMHx: 11:55 Anemia; Diabetes - IDDM; Myocardial infarction; Hypertension; COPD; Parkinsons; jd3 Pneumonia; CHF; CAD; Seizures; - PSHx: 11:55 Coronary artery bypass graft; hip; jd3 - Immunization history:: Adult Immunizations up to date, Client reports having NOT received the Covid vaccine. - Social history:: Smoking status: Patient denies any tobacco usage or history of. - Family history:: not pertinent. ROS: 15:23 Eyes: Negative for injury, pain, redness, and discharge, Neck: Negative for injury, stanley pain, and swelling, Back: Negative for injury and pain. 15:23 Constitutional: Positive for malaise, poor PO intake. 15:23 Eyes: Positive for sunken appearance. 15:23 ENT: 15:23 Cardiovascular: Positive for palpitations. 15:23 Respiratory: Positive for cough. 15:23 Abdomen/GI: Positive for anorexia. 15:23 Back: Negative for injury or acute deformity. 15:23 : Positive for difficulty urinating, has hernandez. 15:23 MS/extremity: Positive for bilateral le weakness. 15:23 Skin: Positive for pallor. 15:23 Neuro: Positive for weakness. Exam: 15:23 Constitutional: This is a well developed, well nourished patient who is awake, alert, stanley and in no acute distress. Head/Face: Normocephalic, atraumatic. Eyes: Pupils equal round and reactive to light, extra-ocular motions intact. Lids and lashes normal. Conjunctiva and sclera are non-icteric and not injected. Cornea within normal limits. Periorbital areas with no swelling, redness, or edema. Neck: Trachea midline, no thyromegaly or masses palpated, and no cervical lymphadenopathy. Supple, full range of motion without nuchal rigidity, or vertebral point tenderness. No Meningismus. Chest/axilla: Normal chest wall appearance and motion. Nontender with no deformity. No lesions are appreciated. Cardiovascular: Regular rate and rhythm with a normal S1 and S2. No gallops, murmurs, or rubs. Normal PMI, no JVD. No pulse deficits. Respiratory: Lungs have equal breath sounds bilaterally, clear to auscultation and percussion. No rales, rhonchi or wheezes noted. No increased work of breathing, no retractions or nasal flaring. Abdomen/GI: Soft, non-tender, with normal bowel sounds. No distension or tympany. No guarding or rebound. No evidence of tenderness throughout. Back: No spinal tenderness. No costovertebral tenderness. Full range of motion. Male : Normal genitalia with no discharge or lesions. MS/ Extremity: Pulses equal, no cyanosis. Neurovascular intact. Full, normal range of motion. Neuro: Awake and alert, GCS 15, oriented to person, place, time, and situation. Cranial nerves II-XII grossly intact. Motor strength 5/5 in all extremities. Sensory grossly intact. Cerebellar exam normal. Normal gait. Psych: Awake, alert, with orientation to person, place and time. Behavior, mood, and affect are within normal limits. 15:23 ENT: Posterior pharynx: is normal, airway is patent, no erythema, no exudate, no peritonsilar mass, no pooling of secretions, no swelling, no acute changes, Airway: normal, no evidence of obstruction. 15:23 ECG was reviewed by the Attending Physician. 15:30 Abdomen/GI: Rectal exam: is unremarkable, Prostate: normal, rectal tone normal, Stool: stanley guaiac negative, hemorrhoid(s), are not appreciated, mass, is not appreciated, swelling, is not appreciated, tenderness, is not appreciated, Liver: no appreciated palpable abnormalities, Hernia: not appreciated. Vital Signs: 11:53 Pulse 175; Resp 34; Temp 102.4(R); Pulse Ox 95% ; Pain 0/10; ch5 11:58 BP 141 / 68; Pulse 67; Resp 18 S; Temp 98.9(O); Pulse Ox 97% on R/A; Weight 58.97 kg jd3 (R); Height 6 ft. 0 in. (182.88 cm) (R); Pain 0/10; 13:06 BP 144 / 61; Pulse 60; Resp 15 S; Pulse Ox 98% on R/A; jd3 18:29 BP 157 / 56; Pulse 60; Resp 13 S; Pulse Ox 99% on R/A; jd3 19:00 BP 139 / 59; Pulse 60; Resp 19; Pulse Ox 99% ; jb4 20:00 BP 146 / 59; Pulse 60; Resp 14; Pulse Ox 99% ; jb4 21:00 BP 147 / 63; Pulse 56; Resp 12; Temp 98.8(O); Pulse Ox 99% on R/A; jb4 11:58 Body Mass Index 17.63 (58.97 kg, 182.88 cm) jd3 11:53 Hsieh-Jaimes (FACES) ch5 MDM: 11:46 Patient medically screened. stanley 15:29 Differential diagnosis: dehydration, UTI, Hernandez catheter problem. Differential stanley Diagnosis altered mental status, sepsis. Data reviewed: vital signs, nurses notes, EMS record, lab test result(s), EKG, radiologic studies, CT scan, plain films. Data interpreted: telemetry monitor: rate is 60 beats/min, rhythm is regular, Pulse oximetry: on room air is 98 %. Test interpretation: by ED physician or midlevel provider: ECG, plain radiologic studies. Counseling: I had a detailed discussion with the patient and/or guardian regarding: the historical points, exam findings, and any diagnostic results supporting the discharge/admit diagnosis, lab results, radiology results, the need for further work-up and treatment in the hospital. 04/02 12:08 Order name: Basic Metabolic Panel [facility] 04/02 12:08 Order name: CBC with Diff [facility] 04/02 12:08 Order name: LFT's [facility] 04/02 12:08 Order name: Magnesium; Complete Time: 14:39 [facility] 04/02 12:08 Order name: NT PRO-BNP; Complete Time: 14:39 [facility] 04/02 12:08 Order name: PT-INR; Complete Time: 14:39 [facility] 04/02 12:08 Order name: Troponin (emerg Dept Use Only); Complete Time: 14:39 [facility] 04/02 12:08 Order name: TSH; Complete Time: 14:39 [facility] 04/02 12:08 Order name: Lipase; Complete Time: 14:39 [facility] 04/02 12:08 Order name: Type And Screen [facility] 04/02 12:09 Order name: Basic Metabolic Panel; Complete Time: 14:39 [facility] 04/02 12:09 Order name: CBC with Automated Diff; Complete Time: 14:39 [facility] 04/02 12:09 Order name: Liver (Hepatic) Function; Complete Time: 14:39 [facility] 04/02 12:08 Order name: XRAY Chest (1 view); Complete Time: 14:39 [facility] 04/02 12:41 Order name: Urine Culture [facility] 04/02 12:49 Order name: Urine Dipstick-Ancillary; Complete Time: 14:39 [facility] 04/02 13:16 Order name: CBC Smear Scan; Complete Time: 14:39 [facility] 04/02 14:25 Order name: SARS-COV-2 RT PCR; Complete Time: 14:39 [facility] 04/02 14:40 Order name: Blood Culture Adult (2) [facility] 04/02 14:40 Order name: Lactate [facility] 04/02 14:41 Order name: Blood Culture [facility] 04/02 14:41 Order name: Lactate [facility] 04/02 14:41 Order name: CT Chest Abdomen Pelvis W/O Contrast; Complete Time: 15:49 [facility] 04/02 15:21 Order name: Occult Blood--Ancillary 04/02 16:34 Order name: Packed RBC Leukored [facility] 04/02 18:20 Order name: T4 Free [facility] 04/02 12:08 Order name: EKG; Complete Time: 12:09 [facility] 04/02 12:08 Order name: Cardiac monitoring; Complete Time: 12:19 [facility] 04/02 12:08 Order name: EKG - Nurse/Tech; Complete Time: 12:19 [facility] 04/02 12:08 Order name: IV Saline Lock; Complete Time: 12:36 [facility] 04/02 12:08 Order name: Labs collected and sent; Complete Time: 12:36 [facility] 04/02 12:08 Order name: O2 Per Protocol; Complete Time: 12:19 [facility] 04/02 12:08 Order name: O2 Sat Monitoring; Complete Time: 12:19 [facility] 04/02 12:41 Order name: Urine Dipstick-Ancillary (obtain specimen); Complete Time: 12:49 [facility] 04/02 14:40 Order name: Transfuse; Complete Time: 18:26 [facility] 04/02 15:21 Order name: NG Tube: put peg to lis; Complete Time: 16:35 [facility] EC:23 Rate is 57 beats/min. Rhythm is regular. QRS [place] is Normal. TN interval is normal. QRS stanley interval is normal. QT interval is normal. No Q waves. T waves are Normal. No ST changes noted. Clinical impression: NSR w/ Non-specific ST/T Changes and No evidence of ischemia. Interpreted by me. Reviewed by me. Administered Medications: 12:41 Drug: NS 0.9% 1000 ml Route: IV; Rate: 75 ml/hr; Site: right antecubital; jd3 19:14 Follow up: Response: No adverse reaction; IV Status: Infusion continued upon admission jd3 16:25 Drug: Rocephin (cefTRIAXone) 2 grams Route: IV; Rate: per protocol; Site: right jd3 antecubital; 17:25 Follow up: Response: No adverse reaction; IV Status: Completed infusion jd3 18:30 Drug: Benadryl (diphenhydrAMINE) 12.5 mg Route: IVP; Site: left forearm; jd3 19:14 Follow up: Response: No adverse reaction jd3 18:30 Drug: Tylenol 650 mg {Note: given throug PEG tube.} Route: PO; jd3 19:14 Follow up: Response: No adverse reaction jd3 Disposition Summary: 04/02/21 15:32 Hospitalization Ordered Hospitalization Status: Inpatient Admission stanley Provider: Ector Carrera cha Location: Telemetry/MedSurg (Inpatient) stanley Condition: Fair stanley Problem: new stanley Symptoms: have improved stanley Bed/Room Type: Standard [facility] Room Assignment: 202(04/02/21 18:44) tt3 Diagnosis - Weakness stanley - Anemia, unspecified stanley - Systolic (congestive) heart failure stanley - Type 1 diabetes mellitus with hyperglycemia stanley - UTI/ Urinary tract infection, site not specified stanley - Elevated white blood cell count stanley - Unspecified kidney failure - chronic stanley - Gastrostomy complication, unspecified stanley - Pleural condition, unspecified - bilateral stanley - Constipation stanley - Pneumonia due to other specified bacteria - left lower lobe stanley Forms: - Medication Reconciliation Form stanley - SBAR form stanley Signatures: Dispatcher [employer] EDMS Homer Dang MD MD cha Davies, Jonathon, RN RN Sanjiv Neil tt3 Corrections: (The following items were deleted from the chart) 13:33 12:09 CORONAVIRUS+[email or web address] ordered. [facility] EDMS 18:44 15:32 stanley tt3
--- NOTE | 2021-04-02 15:33 | ER ---
Nurse's Notes [facility] Name: Mumtaz Anderson Age: 66 yrs Sex: Male : 1955 Arrival Date: 04/02/2021 Time: 11:[address] Private MD: Diagnosis: Weakness;Anemia, unspecified;Systolic (congestive) heart failure;Type 1 diabetes mellitus with hyperglycemia;UTI/ Urinary tract infection, site not specified;Elevated white blood cell count;Unspecified kidney failure-chronic;Gastrostomy complication, unspecified;Pleural condition, unspecified-bilateral;Constipation;Pneumonia due to other specified bacteria-left lower lobe Presentation: 04/02 11:50 Chief complaint: EMS states: "pt's daughter called and reported the pt had a heart rate jd3 33. on our arrival the pt's heart rate was normal. the daughter reported reported that the last time this happened the pt was anemic and needed a blood transfusion. the daughter also thinks the pt might have a UTI.". Coronavirus screen: At this time, the client does not indicate any symptoms associated with coronavirus-19. Ebola Screen: Patient negative for fever greater than or equal to 101.5 degrees Fahrenheit, and additional compatible Ebola Virus Disease symptoms. Initial Sepsis Screen: Does the patient meet any 2 criteria? No. Patient's initial sepsis screen is negative. Does the patient have a suspected source of infection? No. Patient's initial sepsis screen is negative. Risk Assessment: Do you want to hurt yourself or someone else? Patient reports no desire to harm self or others. Onset of symptoms was April 02, 2021. 11:50 Method Of Arrival: EMS: [facility] jd3 11:50 Acuity: VIDAL 3 jd3 11:53 Chief complaint: Parent and/or Guardian states: Febrile seizure x 1. Been sick x 2 days ch5 with rash that started on face. Ebola Screen: Patient negative for fever greater than or equal to 101.5 degrees Fahrenheit, and additional compatible Ebola Virus Disease symptoms Patient denies exposure to infectious person. Patient denies travel to an Ebola-affected area in the 21 days before illness onset. Initial Sepsis Screen: Does the patient meet any 2 criteria? Does the patient have a suspected source of infection?. Risk Assessment: Do you want to hurt yourself or someone else? Patient reports no desire to harm self or others. Unable to obtain. Onset of symptoms was March 30, 2021. Care prior to arrival: Tylenol given. :53 Method Of Arrival: Carried ch5 11:53 Acuity: VIDAL 3 ch5 Historical: - Allergies: 11: Latex, Natural Rubber; jd3 11:55 Nexium D; jd3 11:55 spironolactone; jd3 - Home Meds: 11:55 aspirin 81 mg Oral chew [Active]; atorvastatin 80 mg Oral tab 1 tab once daily jd3 [Active]; calcitrol [Active]; clopidogrel 75 mg Oral tab 1 tab once daily [Active]; Carafate Oral [Active]; doxazosin Oral [Active]; ferrous sulfate 325 mg (65 mg iron) Oral tab three times a day [Active]; Lactobacillus acidophilus-pectin Oral [Active]; escitalopram oxalate 20 mg Oral tab 1 tab once daily [Active]; gabapentin Oral [Active]; Lantus Sub-Q [Active]; Lasix 40 mg Oral tab 1 tab once daily [Active]; metformin 500 mg Oral tab 1 tab 2 times per day [Active]; Metoprolol Tartrate Oral [Active]; Norvasc Oral [Active]; Novolin 70/30 Innolet Sub-Q [Active]; Toprol XL 50 mg Oral Tb24 1 tab once daily [Active]; Trazodone Oral [Active]; nystatin Topical [Active]; Tylenol [Active]; Zofran Oral [Active]; - PMHx: 11:55 Anemia; Diabetes - IDDM; Myocardial infarction; Hypertension; COPD; Parkinsons; jd3 Pneumonia; CHF; CAD; Seizures; - PSHx: 11:55 Coronary artery bypass graft; hip; jd3 - Immunization history:: Adult Immunizations up to date, Client reports having NOT received the Covid vaccine. - Social history:: Smoking status: Patient denies any tobacco usage or history of. - Family history:: not pertinent. Screenin:02 Abuse screen: Denies threats or abuse. Nutritional screening: No deficits noted. jd3 Tuberculosis screening: No symptoms or risk factors identified. Fall Risk Ambulatory Aid- None/Bed Rest/Nurse Assist (0 pts). Gait- Normal/Bed Rest/Wheelchair (0 pts) Mental Status- Oriented to own ability (0 pts). Total Walter Fall Scale indicates No Risk (0-24 pts). Assessment: 12:00 General: Appears in no apparent distress. comfortable, Behavior is calm, cooperative, jd3 appropriate for age, Reports fatigue for 1-2 days. Pain: Denies pain. Neuro: Level of Consciousness is awake, alert, obeys commands, Oriented to person, place, time, situation, family reports pt having hallucinations at home. Cardiovascular: Denies chest pain, Capillary refill < 3 seconds Patient's skin is warm and dry. Rhythm is irregular. Respiratory: Reports cough that is dry, since this am Airway is patent Respiratory effort is even, unlabored, Respiratory pattern is regular, symmetrical, Denies shortness of breath. GI: Abdomen is non-distended, Abd is soft and non tender X 4 quads. Patient currently denies diarrhea, nausea, vomiting. : No signs and/or symptoms were reported regarding the genitourinary system. EENT: No signs and/or symptoms were reported regarding the EENT system. Derm: Skin is intact, Skin is dry, Skin is pale, Skin temperature is warm. Musculoskeletal: No signs and/or symptoms reported regarding the musculoskeletal system. 13:07 Reassessment: Patient appears in no apparent distress at this time. Patient and/or jd3 family updated on plan of care and expected duration. Pain level reassessed. Patient is alert, oriented x 3, equal unlabored respirations, skin warm/dry/pink. 14:00 Reassessment: Patient appears in no apparent distress at this time. No changes from jd3 previously documented assessment. Patient and/or family updated on plan of care and expected duration. Pain level reassessed. Patient is alert, oriented x 3, equal unlabored respirations, skin warm/dry/pink. 15:00 Reassessment: Patient appears in no apparent distress at this time. No changes from jd3 previously documented assessment. Patient and/or family updated on plan of care and expected duration. Pain level reassessed. Patient is alert, oriented x 3, equal unlabored respirations, skin warm/dry/pink. 16:00 Reassessment: Patient appears in no apparent distress at this time. No changes from jd3 previously documented assessment. Patient and/or family updated on plan of care and expected duration. Pain level reassessed. Patient is alert, oriented x 3, equal unlabored respirations, skin warm/dry/pink. 17:00 Reassessment: Patient appears in no apparent distress at this time. No changes from jd3 previously documented assessment. Patient and/or family updated on plan of care and expected duration. Pain level reassessed. Patient is alert, oriented x 3, equal unlabored respirations, skin warm/dry/pink. 18:00 Reassessment: Patient appears in no apparent distress at this time. No changes from jd3 previously documented assessment. Patient and/or family updated on plan of care and expected duration. Pain level reassessed. Patient is alert, oriented x 3, equal unlabored respirations, skin warm/dry/pink. blood consent signed. blood slip sent for first transfusion. 18:35 Reassessment: blood transfusion started, see transfusion flow sheet. jd3 19:05 Reassessment: Patient appears in no apparent distress at this time. Patient and/or jb4 family updated on plan of care and expected duration. Pain level reassessed. Patient is alert, oriented x 3, equal unlabored respirations, skin warm/dry/pink. 20:00 Reassessment: Patient appears in no apparent distress at this time. Patient and/or jb4 family updated on plan of care and expected duration. Pain level reassessed. Patient is alert, oriented x 3, equal unlabored respirations, skin warm/dry/pink. 21:00 Reassessment: Patient appears in no apparent distress at this time. Patient and/or jb4 family updated on plan of care and expected duration. Pain level reassessed. Patient is alert, oriented x 3, equal unlabored respirations, skin warm/dry/pink. 21:35 Reassessment: Patient appears in no apparent distress at this time. Patient and/or jb4 family updated on plan of care and expected duration. Pain level reassessed. Patient is alert, oriented x 3, equal unlabored respirations, skin warm/dry/pink. Pt transferred up stairs. Vital Signs: 11:53 Pulse 175; Resp 34; Temp 102.4(R); Pulse Ox 95% ; Pain 0/10; ch5 11:58 BP 141 / 68; Pulse 67; Resp 18 S; Temp 98.9(O); Pulse Ox 97% on R/A; Weight 58.97 kg jd3 (R); Height 6 ft. 0 in. (182.88 cm) (R); Pain 0/10; 13:06 BP 144 / 61; Pulse 60; Resp 15 S; Pulse Ox 98% on R/A; jd3 18:29 BP 157 / 56; Pulse 60; Resp 13 S; Pulse Ox 99% on R/A; jd3 19:00 BP 139 / 59; Pulse 60; Resp 19; Pulse Ox 99% ; jb4 20:00 BP 146 / 59; Pulse 60; Resp 14; Pulse Ox 99% ; jb4 21:00 BP 147 / 63; Pulse 56; Resp 12; Temp 98.8(O); Pulse Ox 99% on R/A; jb4 11:58 Body Mass Index 17.63 (58.97 kg, 182.88 cm) jd3 11:53 Tiffanie (FACES) [facility] ED Course: 11:46 Patient arrived in ED. eb 11:46 Homer Dang MD is Attending Physician. stanley 11:50 Axel Donaldson RN is Primary Nurse. jd3 11:55 Triage completed. jd3 11:59 Arm band placed on. jd3 12:02 Patient has correct armband on for positive identification. Bed in low position. Call j light in reach. Side rails up X2. Adult w/ patient. visual journalist on. Pulse ox on. NIBP on. 12:24 XRAY Chest (1 view) In Process Unspecified. EDMS 15:09 CT Chest Abdomen Pelvis W/O Contrast In Process Unspecified. EDMS 15:31 Ector Carrera MD is Hospitalizing Provider. stanley 16:35 Lactate Sent. ch5 16:35 Blood Culture Adult (2) Sent. 5 21:00 No provider procedures requiring assistance completed. Patient admitted, IV remains in jb4 place. Administered Medications: 12:41 Drug: NS 0.9% 1000 ml Route: IV; Rate: 75 ml/hr; Site: right antecubital; jd3 19:14 Follow up: Response: No adverse reaction; IV Status: Infusion continued upon admission jd3 16:25 Drug: Rocephin (cefTRIAXone) 2 grams Route: IV; Rate: per protocol; Site: right jd3 antecubital; 17:25 Follow up: Response: No adverse reaction; IV Status: Completed infusion jd3 18:30 Drug: Benadryl (diphenhydrAMINE) 12.5 mg Route: IVP; Site: left forearm; jd3 19:14 Follow up: Response: No adverse reaction jd3 18:30 Drug: Tylenol 650 mg {Note: given throug PEG tube.} Route: PO; jd3 19:14 Follow up: Response: No adverse reaction jd3 Outcome: 15:32 Decision to Hospitalize by Provider. stanley 21:00 Admitted to Med/surg accompanied by nurse, via stretcher, room 202, with chart, Report jb4 called to [facility] 21:00 Condition: stable 21:00 Discharge instructions given to patient, family, Instructed on the need for admit, Demonstrated understanding of instructions. 21:51 Patient left the ED. jb4 Signatures: Dispatcher [employer] EDIA Homer Dang MD MD cha Bryson, James, RN RN jb4 Axel Donaldson RN RN jd3 Christina Betts Christopher, RN RN ch5
--- NOTE | 2021-04-02 15:34 | RAD REPORT ---
EXAM DESCRIPTION: CT - Chest Abd Pelvis Wo Con - 04/02/2021 3:09 pm CLINICAL HISTORY: Cough and abdominal pain COMPARISON: October 2020 TECHNIQUE: Computed axial tomography of the chest, abdomen and pelvis was obtained. Oral contrast wa s given. IV contrast was not requested. All CT scans are performed using dose optimization technique as appropriate and may include automated exposure control or mA/KV adjustment according to patient size. FINDINGS: The evaluation of mediastinum, tiffany, vessels and solid organs is limited secondary to the lack of IV contrast administration No mediastinal or hilar lymphadenopathy is seen. Minimal bilateral pleural effusions. A pericardial effusion is not seen. Mild left lower lobe opacities with small area of atelectasis. The liver, spleen, pancreas, adrenals and kidneys appear grossly normal Percutaneous tube within the stomach. There is no evidence of diverticulitis. A moderate amount of stool throughout colon. Cholelithiasis Compression fractures involving T12 and L3 unchanged Holcomb catheter within the bladder IMPRESSION: Mild left lower lobe opacities probably mild pneumonia. Mild left lower lobe atelectasis Cholelithiasis Moderate amount stool within the colon
[2021-04-02] MEDS ORDERED: DIPHENHYDRAMINE 50 MG/ML VIAL ONE (16:27)
[2021-04-02] MEDS ORDERED: CEFTRIAXONE/SWI 1gm 2 GM/20 ML SYR ONE (16:27)
[2021-04-02] MEDS ORDERED: ACETAMINOPHEN 325 MG TABLET ONE (16:27)
[2021-04-02] MEDS ORDERED: POLYETHYL GLY 3350 17 GM/DOSE PO PRN (17:04)
[2021-04-02] MEDS ORDERED: LABETALOL 20 MG/4ML SYRINGE IV PRN (17:11)
[2021-04-02] MEDS ORDERED: ONDANSETRON 4 MG/2 ML VIAL IV PRN (17:40)
--- NOTE | 2021-04-02 17:50 | P.HP ---
Certification for Inpatient Patient admitted to: Inpatient With expected LOS: >2 Midnights Patient will require the following post-hospital care: None Practitioner: I am a practitioner with admitting privileges, knowledge of patient current condition, hospital course, and medical plan of care. Services: Services provided to patient in accordance with Admission requirements found in Title 42 Section 412.3 of the Code of Federal Regulations Patient History Date of Service: 04/03/21 Reason for admission: Generalized weakness, UTI History of Present Illness: Patient is a 66-year-old male with a past medical history significant for chronic diastolic congestive heart failure, diabetes mellitus type 2, CKD 3, ALICIA, UTI, CVA who presents with complaint of generalized weakness and bradycardia. Patient reported that patient was recently treated with cefuroxime antibiotics for a period of 10 days for a UTI. Patient spouse reported that she noticed that patient's urine was cloudy. Patient reports associated signs and symptoms of diaphoresis, weakness, fatigue, bradycardia, insomnia and visual hallucinations. Patient denies any other signs or symptoms. Symptoms are aggravated or relieved by nothing. Family decided to bring patient to the hospital for medical evaluation. Allergies spironolactone Adverse Reaction (Verified 04/02/21 23:03) Anaphylaxis nexen Adverse Reaction (Uncoded 02/08/21 23:48) hallucination Home Medications: Aspirin [Adult Aspirin Regimen] 81 mg FT BEDTIME 06/04/20 Atorvastatin Calcium [Lipitor] 80 mg FT BEDTIME 06/04/20 Amlodipine [Norvasc*] 10 mg FT DAILY 07/16/20 Clopidogrel Bisulfate [Plavix*] 75 mg FT DAILY 07/16/20 Escitalopram [Lexapro*] 30 mg FT DAILY 07/16/20 Gabapentin 300 mg FT BID 07/16/20 Doxazosin [Cardura*] 2 mg FT BEDTIME 30 Days #30 tab 12/08/20 Ascorbic Acid [Vitamin C] 2,000 mg FT TID 12/16/20 Sucralfate [Carafate] 100 mg FT Q6H 12/16/20 Trazodone HCl 150 tab FT BEDTIME 12/16/20 Ferrous Sulfate [Ferrous Sulfate Elixir*] 5 ml FT BID 02/09/21 Metoprolol Tartrate [Lopressor] 100 mg FT BID 02/09/21 Glucerna 1.5 Higinio 360 ml FT QID #30 bot 02/24/21 Furosemide 20 mg PO BID 04/02/21 Insulin -Regular Human [Novolin -R*] 100 units SQ ACHS 04/02/21 - Past Medical/Surgical History Diabetic: Yes -: Diabetes mellitus type 2, insulin-dependent -: CAD -: Hypertension -: Hyperlipidemia -: COPD -: Tobacco abuse -: Fracture t12 L3 -: PEG tube -: CKD 3 -: seizures -: Stroke -: Chronic diastolic congestive -: Knee surgery -: I&D lower right buttock -: hiatal hernia repair -: I and D to the left foot -: Left Bipolar Hemiarthroplasty 04/06/19 -: Hip surgery -: CABG -: hand sx, PEG Psychosocial/ Personal History: Patient is single. He lives with his son. - Family History Father -: Heart disease, Hypertension, Lung disease, GI disease, Diabetes, Cancer, Other (see notes) Notes: parkinson's disease Mother -: Heart disease, Hypertension, Diabetes, Cancer Sister -: Cancer - Social History Smoking Status: Unknown if ever smoked Alcohol use: No CD- Drugs: No Caffeine use: Yes Review of Systems General: Weakness, As per HPI Eyes: Unremarkable ENT: Unremarkable Respiratory: Shortness of Breath Cardiovascular: Unremarkable Gastrointestinal: Nausea Genitourinary: Unremarkable Musculoskeletal: Unremarkable Integumentary: As per HPI Neurological: Unremarkable Lymphatics: Unremarkable Physical Examination - Physical Exam General: Alert, In no apparent distress, Oriented x2 HEENT: Atraumatic, PERRLA, Mucous membr. moist/pink, EOMI, Sclerae nonicteric Neck: Supple, 2+ carotid pulse no bruit, No LAD, Without JVD or thyroid abnormality Respiratory: Diminished Cardiovascular: Regular rate/rhythm, Normal S1 S2 Capillary refill: <2 Seconds Gastrointestinal: Normal bowel sounds, Soft and benign, No tenderness Musculoskeletal: No tenderness Integumentary: No rashes Neurological: Normal gait, Normal speech, Normal tone, Normal affect Lymphatics: No axilla or inguinal lymphadenopathy Urinary: Hernandez catheter External genitalia: Deferred Rectal: Deferred - Studies Laboratory Data (last 24 hrs) 04/02/21 12:31: PT 13.1 H, INR 1.14 04/02/21 12:31: WBC 18.20 H, Hgb 7.4 L, Hct 23.3 L, Plt Count 109 L 04/02/21 12:31: Sodium 137, Potassium 5.0, BUN 87 H, Creatinine 1.45 H, Glucose 104, Magnesium 3.2 H, Total Bilirubin 0.5, AST 45 H, ALT 113 H, Alkaline Phosphatase 89, Lipase 115 Assessment and Plan - Plan --Symptomatic anemia. 2 units of PRBC ordered in the ER. Will continue to monitor hemoglobin --Acute on Chronic diastolic CHF. Continue diuresis with Lasix and home medications. Daily weight and strict I\O --Sepsis POA. Blood cultures pending. Continue antibiotics. --Pneumonia. Blood cultures pending. Continue antibiotics, O2 therapy prn and steroids. --DM 2. BS monitoring with sliding scale insulin. --Leukocytosis. Blood cultures pending. Continue antibiotics. --PEG tube Presence. S\P aspiration pneumonia. Will keep patient NPO. Continue supportive care --Constipation. Noted on imagine. Patient placed on laxatives. --ALICIA Continue ferrous sulfate. --Hx of Urinary retention. Continue hernandez care --Hx of Chronic UTI. Continue antibiotics. --Hx of CAD and CABG: Continue home medicationss. --Hypertension: Poorly controlled. Continue home medications and labetalol prn. --Hyperlipidemia: Continue statin --DVT prophylaxis with heparin sub I have had discussion about advanced directives with the patient during this hospital admission. Addressed code status and goals of care. Spent more than 30 minutes. Case discussed withpatient and nurse. The following document was completed using voice recognition software. This can produce television news video editor errors that can at times significantly distort words and phrases. Please interpret any aspect of the note that is nonsensical in light of this fact. Discharge Plan: Home Plan to discharge in: 48 Hours - Advance Directives Does patient have a Living Will: No Does patient have a Durable POA for Healthcare: No - Code Status/Comfort Care Code Status Assessed: Yes Code Status: Do Not Attempt Resuscitat Physician Review: Patient Assessed, Agree with Above Assessment and Plan Critical Care: No
[2021-04-02] MEDS ORDERED: NA CHLORIDE 0.9% 250 ML ONE (18:45)
[2021-04-02] MEDS ORDERED: ATORVASTATIN 80 MG TAB FT ONE (20:00)
[2021-04-02] MEDS ORDERED: ASPIRIN EC 81 MG TAB PO ONE (20:00)
[2021-04-02] MEDS ORDERED: DOXAZOSIN 2 MG TAB FT ONE (21:00)
[2021-04-02] MEDS: FUROSEMIDE 20 MG TABLET PO SCH (21:00)
[2021-04-02] MEDS: SENOSIDES 8.6 MG TAB PO SCH (21:00)
[2021-04-02] MEDS ORDERED: METOPROLOL TAR 50 MG TAB FT ONE (21:00)
[2021-04-02] MEDS: LACTULOSE 20 GM/30 ML UCUP PO SCH ×2 (21:00)
[2021-04-02] MEDS ORDERED: TRAZODONE 150 MG TAB PO ONE (22:44)
[2021-04-02] MEDS: HEPARIN 5000 UNIT/ML 1 ML VIAL SQ SCH (22:50)
[2021-04-02] MEDS: GABAPENTIN 300 MG CAP FT SCH (22:50)
[2021-04-02] MEDS: GLUCERNA 1.5 CAL 1,000 ML BOT FT SCH (23:00)
[2021-04-02] MEDS: ASCORBIC ACID 500 MG TABLET FT SCH (23:00)
[2021-04-02] MEDS ORDERED: GLUCAGON 1 MG/VIAL IM PRN (23:47)
[2021-04-02] MEDS ORDERED: D50W 25 GM/50 ML SYRINGE IV PRN (23:47)
[2021-04-03] MEDS: Meropenem 1 GM/100 ML BAG IV SCH ×3 (00:22→20:44)
[2021-04-03] MEDS ORDERED: METHYLPREDNISOLONE 40 MG INJ IV SCH (01:00)
[2021-04-03] MEDS ORDERED: Meropenem 1 GM/100 ML BAG ONE (01:01)
[2021-04-03] MEDS ORDERED: NA CHLORIDE 0.9% 250 ML ONE (01:02)
[2021-04-03] MEDS: INSULIN -REGULAR HUMAN 50 UNIT/0.5 ML ML SQ SCH ×5 (02:40→20:53)
[2021-04-03 05:01] LABS: Urine Appearance CLOUDY (Clear); Urine Bilirubin NEGATIVE (Negative); Urine Blood 2+ (Negative); Urine Color YELLOW (Yellow); Urine Glucose TRACE (Negative); Urine Protein 3+ (Negative); Urine Specific Gravity 1.015 (1.005-1.030); Urine Urobilinogen 0.2 mg/dL (0.2-1.0); Urine pH 6.5 (5.0-7.0)
[2021-04-03 05:03] LABS: Urine Microscopic Reflex ORDER UMIC
--- NOTE | 2021-04-03 05:52 | P.PN ---
Subjective Date of Service: 04/03/21 Chief Complaint: Generalized weakness, UTI Subjective: Improving (Patient feeling better, still with some slight confusion, states he is happy his had to go home. States she does not feed him enough food. No new complaints, denies pain, but does report some pressure/discomfort in suprapubic region) Review of Systems 10-point ROS is otherwise unremarkable Physical Examination - Vital Signs Temperature: 97.3 F Blood Pressure: 149/65 Pulse: 55 Respirations: 16 Pulse Ox (%): 98 - Studies Laboratory Data (last 24 hrs) 04/02/21 12:31: PT 13.1 H, INR 1.14 04/02/21 12:31: WBC 18.20 H, Hgb 7.4 L, Hct 23.3 L, Plt Count 109 L 04/02/21 12:31: Sodium 137, Potassium 5.0, BUN 87 H, Creatinine 1.45 H, Glucose 104, Magnesium 3.2 H, Total Bilirubin 0.5, AST 45 H, ALT 113 H, Alkaline Phosphatase 89, Lipase 115 Microbiology Data (last 24 hrs): 04/02/21 15:21 Stool Occult Blood - Final Assessment & Plan Physician Review Additional Text: Physical exam GEN: Alert, orientedx2, NAD HEENT: Normal conjunctiva, sclera anicteric CV: Regular rate and rhythm, no edema Pulm: Nonlabored respiration on room air ABD: Soft, nontender, nondistended, PEG Tube in place, minimal erythema, no purulent drainage Neuro: Normal speech, normal affect Skin: Superficial skin tear noted to lateral thigh Problem List acute cystitis Acute hypoxemic respiratory failure secondary to acute on chronic diastolic CHF acute metabolic encephalopathy secondary to UTI bradycardia Diabetes mellitus type 2, non-insulin dependent h/o PEG tube s/p aspiration pneumonia Anemia of chronic disease with iron deficiency Chronic Hernandez catheter with history of urinary retention, recurrent UTIs History of CAD with previous CABG Hypertension Hyperlipidemia Anemia - appears at baseline, similar to recent discharge ~1 month ago. 2 units of PRBC ordered in the ER. Appropriate response Acute on Chronic diastolic CHF. Continue diuresis with Lasix and home medications. Daily weight and strict I\O SIRS on admission, f/u cultures, continue IV antibiotics ID consulted given recurrent infections acute cystitis with indwelling hernandez and possible LLL pneumonia DM2. BS monitoring with sliding scale insulin. Leukocytosis. Blood cultures pending. Continue antibiotics. PEG tube in place, mild insertion site erythema. h/o aspiration pneumonia in the past. states he has been doing well with regular food, sees speech therapy at home, told me no restriction Constipation. Noted on imagine. Patient placed on laxatives. Iron deficiency anemia - continue ferrous sulfate. Hx of Urinary retention. Continue hernandez care Hx of Chronic UTI. Continue antibiotics. Hx of CAD and CABG: Continue home medicationss. Hypertension: Poorly controlled. Continue home medications and labetalol prn. Hyperlipidemia: Continue statin DVT prophylaxis with heparin sub Hyperglycemia this morning, was given steroids yesterday, steroids discontinued. Time Spent Managing Pts Care (In Minutes): 35
[2021-04-03] MEDS: SUCRALFATE 1GM/10ML UCUP FT SCH ×4 (06:00→17:03)
[2021-04-03 06:07] LABS: Urine Bacteria <20 /HPF (NONE SEEN)
[2021-04-03 06:08] LABS: Urine Mucus 1+ /HPF (NONE SEEN); Urine Yeast PRESENT (NONE SEEN)
[2021-04-03 06:37] LABS: Absolute Lymphocytes (CBC) 0.3 K/uL (0.7-4.9); Basophils % 0.1 % (0-1.3); Hematocrit 32.4 % (39.6-49.0); Lymphocytes % 1.7 % (15.3-44.8); MPV 11.4 fL (7.6-11.3); RBC Red Blood Cell Count 4.32 M/uL (4.33-5.43)
[2021-04-03 07:00] LABS: Magnesium 3.3 mg/dL (1.8-2.4)
[2021-04-03] MEDS: FLUCONAZOLE 200mg IVPB 200 MG/100 ML BAG IV SCH (09:00)
[2021-04-03] MEDS ORDERED: AZITHROMYCIN IV 500 MG in NA CHLORIDE 0.9% 250 ML IVPB SCH (09:00)
[2021-04-03] MEDS: SENOSIDES 8.6 MG TAB PO SCH ×2 (09:00→20:45)
[2021-04-03] MEDS ORDERED: CEFTRIAXONE/SWI 1gm 1 GM/10 ML SYR IV SCH (09:00)
[2021-04-03] MEDS ORDERED: CEFTRIAXONE 1 GM/NS 50 ML 1 GM/50 ML BAG IV SCH (09:00)
[2021-04-03] MEDS: LACTULOSE 20 GM/30 ML UCUP PO SCH ×2 (09:00→20:48)
[2021-04-03] MEDS: METOPROLOL TAR 50 MG TAB FT SCH ×2 (09:00→20:53)
[2021-04-03] MEDS: PANTOPRAZOLE 40MG TABLET PO SCH (09:01)
[2021-04-03] MEDS: ASCORBIC ACID 500 MG TABLET FT SCH ×3 (09:02→20:46)
[2021-04-03] MEDS: GABAPENTIN 300 MG CAP FT SCH ×2 (09:02→20:46)
[2021-04-03] MEDS: CLOPIDOGREL 75 MG TABLET FT SCH (09:02)
[2021-04-03] MEDS: ESCITALOPRAM 20 MG TAB FT SCH (09:03)
[2021-04-03] MEDS: FUROSEMIDE 20 MG TABLET PO SCH ×2 (09:03→20:47)
[2021-04-03] MEDS: HEPARIN 5000 UNIT/ML 1 ML VIAL SQ SCH ×2 (09:04→20:47)
[2021-04-03] MEDS: AMLODIPINE 10 MG TAB FT SCH (09:04)
[2021-04-03] MEDS: GLUCERNA 1.5 CAL 1,000 ML BOT FT SCH ×4 (09:05→20:49)
--- NOTE | 2021-04-03 13:24 | P.CNS ---
Date of Consult: 04/03/21 Chief Complaint: Generalized weakness, UTI History of Present Illness: Patient is a 66-year-old male with a past medical history of chronic diastolic congestive heart failure, diabetes, CKD stage 3, ALICIA, no recurrent UTI, and CVA who presented to the emergency department due to generalized weakness and bradycardia. Per chart review patient was recently treated with cefuroxime for 10 days for UTI. Patient reports associated symptoms of diaphoresis, weakness, fatigue, bradycardia, insomnia, and visual hallucinations. Blood in urine cultures pending, a urinalysis showed yeast in urine and Diflucan was started. CT chest showed a lower lobe [place], and it's concern for aspiration pneumonia. Meropenem has been started. The Infectious disease, has been consulted to manage the patient's antibiotic regimen. Patient currently denies nausea, vomiting, shortness breath, chest pain. Patient reports diarrhea. Allergies spironolactone Adverse Reaction (Verified 04/02/21 23:03) Anaphylaxis nexen Adverse Reaction (Uncoded 02/08/21 23:48) hallucination Home Medications: Aspirin [Adult Aspirin Regimen] 81 mg FT BEDTIME 06/04/20 Atorvastatin Calcium [Lipitor] 80 mg FT BEDTIME 06/04/20 Amlodipine [Norvasc*] 10 mg FT DAILY 07/16/20 Clopidogrel Bisulfate [Plavix*] 75 mg FT DAILY 07/16/20 Escitalopram [Lexapro*] 30 mg FT DAILY 07/16/20 Gabapentin 300 mg FT BID 07/16/20 Doxazosin [Cardura*] 2 mg FT BEDTIME 30 Days #30 tab 12/08/20 Ascorbic Acid [Vitamin C] 2,000 mg FT TID 12/16/20 Sucralfate [Carafate] 100 mg FT Q6H 12/16/20 Trazodone HCl 150 tab FT BEDTIME 12/16/20 Ferrous Sulfate [Ferrous Sulfate Elixir*] 5 ml FT BID 02/09/21 Metoprolol Tartrate [Lopressor] 100 mg FT BID 02/09/21 Glucerna 1.5 Higinio 360 ml FT QID #30 bot 02/24/21 Furosemide 20 mg PO BID 04/02/21 Insulin -Regular Human [Novolin -R*] 100 units SQ ACHS 04/02/21 - Past Medical/Surgical History Diabetic: Yes -: Diabetes mellitus type 2, insulin-dependent -: CAD -: Hypertension -: Hyperlipidemia -: COPD -: Tobacco abuse -: Fracture t12 L3 -: PEG tube -: CKD 3 -: seizures -: Stroke -: Chronic diastolic congestive -: Knee surgery -: I&D lower right buttock -: hiatal hernia repair -: I and D to the left foot -: Left Bipolar Hemiarthroplasty 04/06/19 -: Hip surgery -: CABG -: hand sx, PEG Psychosocial/ Personal History: Patient is single. He lives with his son. - Family History Father Medical History: Heart disease, Hypertension, Lung disease, GI disease, Diabetes, Cancer, Other (see notes) Notes: parkinson's disease Mother Medical History: Heart disease, Hypertension, Diabetes, Cancer Sister Medical History: Cancer - Social History Smoking Status: Unknown if ever smoked Alcohol use: No CD- Drugs: No Caffeine use: Yes Place of Residence: Home Review of Systems 10-point ROS is otherwise unremarkable Physical Examination Temp Pulse Resp BP Pulse Ox 97.5 F 55 24 H 144/59 H 98 04/03/21 08:00 04/03/21 09:04 04/03/21 08:00 04/03/21 09:04 04/03/21 08:00 General: Alert, In no apparent distress, Cachectic HEENT: Atraumatic, Normocephalic Neck: Supple, 2+ carotid pulse no bruit Respiratory: Clear to auscultation bilaterally, Normal air movement Cardiovascular: No edema, Regular rate/rhythm Gastrointestinal: Normal bowel sounds, Other (PEG tube. Insertion site with slight erythema) Musculoskeletal: No swelling, No contractures Integumentary: No rashes, No breakdown, No significant lesion, Other (Superficial skin tear noted to left lateral thigh) Conclusions/Impression: Antibiotics: Meropenem Start: 04/02 Stop:-- Assessment/plan Recurrent urinary tract infection Urine culture pending. Patient was recently treated for a UTI with a 10 day course of a cephalosporin. Continue current antibiotic therapy and tailor antibiotics based off culture report. Possible left lower lobe pneumonia CT chest showed a left lower lobe [place], meropenem started due to concern for possible aspiration pneumonia any for anaerobic coverage. Leukocytosis with left shift Continuing broad-spectrum IV antibiotic. Continue to monitor and watch fever curve. Diabetes, CKD stage 3, CVA Medical management per primary team Plan of care discussed Dr. Ortega Thank you for consultation
[2021-04-03 14:01] LABS: Anisocytosis SLIGHT; Blood Morphology Comment NOTED (NOT SEEN); Platelet Estimate DECR; White Blood Cell Scan OK (OK)
[2021-04-03 14:02] LABS: Hypochromasia 1+
[2021-04-03] MEDS: DOXAZOSIN 2 MG TAB FT SCH (20:45)
[2021-04-03] MEDS: ASPIRIN EC 81 MG TAB PO SCH (20:45)
[2021-04-03] MEDS: ATORVASTATIN 80 MG TAB FT SCH (20:47)
[2021-04-03] MEDS: TRAZODONE 150 MG TAB FT SCH (20:48)
[2021-04-04] MEDS: SUCRALFATE 1GM/10ML UCUP FT SCH ×4 (00:03→16:46)
[2021-04-04 06:19] LABS: Absolute Lymphocytes (CBC) 1.1 K/uL (0.7-4.9); Basophils % 0.3 % (0-1.3); Hematocrit 30.8 % (39.6-49.0); Lymphocytes % 8.1 % (15.3-44.8); MPV 11.7 fL (7.6-11.3); RBC Red Blood Cell Count 4.12 M/uL (4.33-5.43)
[2021-04-04 06:36] LABS: Albumin 2.4 g/dL (3.4-5.0); Bilirubin Total 0.3 mg/dL (0.2-1.0); Magnesium 3.3 mg/dL (1.8-2.4); Phosphorus 3.4 mg/dL (2.5-4.9); Potassium 5.3 mmol/L (3.5-5.1); Protein, Total 6.1 g/dL (6.4-8.2)
[2021-04-04] MEDS: SENOSIDES 8.6 MG TAB PO SCH ×2 (09:00→20:06)
[2021-04-04] MEDS: GLUCERNA 1.5 CAL 1,000 ML BOT FT SCH ×4 (09:00→20:03)
[2021-04-04] MEDS: METOPROLOL TAR 50 MG TAB FT SCH ×2 (09:00→20:06)
[2021-04-04] MEDS: LACTULOSE 20 GM/30 ML UCUP PO SCH ×2 (09:00→20:03)
[2021-04-04] MEDS: Meropenem 1 GM/100 ML BAG IV SCH ×2 (09:25→20:02)
[2021-04-04] MEDS: FLUCONAZOLE 200mg IVPB 200 MG/100 ML BAG IV SCH (09:27)
[2021-04-04] MEDS: AMLODIPINE 10 MG TAB FT SCH (09:29)
[2021-04-04] MEDS: INSULIN -REGULAR HUMAN 50 UNIT/0.5 ML ML SQ SCH ×4 (09:29→21:55)
[2021-04-04] MEDS: CLOPIDOGREL 75 MG TABLET FT SCH (09:30)
[2021-04-04] MEDS: FUROSEMIDE 20 MG TABLET PO SCH ×2 (09:30→20:05)
[2021-04-04] MEDS: PANTOPRAZOLE 40MG TABLET PO SCH (09:30)
[2021-04-04] MEDS: ESCITALOPRAM 20 MG TAB FT SCH (09:30)
[2021-04-04] MEDS: GABAPENTIN 300 MG CAP FT SCH ×2 (09:30→20:02)
[2021-04-04] MEDS: ASCORBIC ACID 500 MG TABLET FT SCH ×3 (09:30→20:02)
[2021-04-04] MEDS: HEPARIN 5000 UNIT/ML 1 ML VIAL SQ SCH ×2 (09:31→20:03)
[2021-04-04] MEDS ORDERED: NA CHLORIDE 0.9% 1,000 ML ONE (09:51)
--- NOTE | 2021-04-04 11:37 | P.PN ---
Subjective Date of Service: 04/04/21 Chief Complaint: Generalized weakness, UTI Patient seen examined at bedside, states he is feeling better today. WBC down trending, afebrile. Cultures show no growth at 48 hr, urine culture growing gram-negative rods, awaiting full report. Review of Systems 10-point ROS is otherwise unremarkable Physical Examination - Vital Signs Temperature: 97.6 F Blood Pressure: 160/112 Pulse: 54 Respirations: 19 Pulse Ox (%): 99 - Studies Laboratory Last Values WBC 18.20 K/uL (4.3-10.9) H 04/02/21 12:31 RBC 3.27 M/uL (4.33-5.43) L 04/02/21 12:31 Hgb 7.4 g/dL (13.6-17.9) L 04/02/21 12:31 Hct 23.3 % (39.6-49.0) L 04/02/21 12:31 MCV 71.1 fL (80-100) L D 04/02/21 12:31 MCH 22.6 pg (27.0-35.0) L 04/02/21 12:31 MCHC 31.8 g/dL (32.0-36.0) L 04/02/21 12:31 RDW 16.0 % (12.1-15.2) H 04/02/21 12:31 Plt Count 109 K/uL (152-406) L 04/02/21 12:31 MPV 10.6 fL (7.6-11.3) 04/02/21 12:31 Neutrophils % 87.3 % (41.7-73.7) H 04/02/21 12:31 Lymphocytes % 6.1 % (15.3-44.8) L 04/02/21 12:31 Monocytes % 6.2 % (3.3-12.3) 04/02/21 12:31 Eosinophils % 0.2 % (0-4.4) 04/02/21 12:31 Basophils % 0.2 % (0-1.3) 04/02/21 12:31 Absolute Neutrophils 15.9 K/uL (1.8-8.0) H 04/02/21 12:31 Absolute Lymphocytes 1.1 K/uL (0.7-4.9) 04/02/21 12:31 Absolute Monocytes 1.1 K/uL (0.1-1.3) 04/02/21 12:31 Absolute Eosinophils 0.0 K/uL (0-0.5) 04/02/21 12:31 Absolute Basophils 0.0 K/uL (0-0.5) 04/02/21 12:31 Platelet Estimate Decr 04/02/21 12:31 Hypochromasia 1+ 04/02/21 12:31 Poikilocytosis 1+ 04/02/21 12:31 Anisocytosis 1+ 04/02/21 12:31 Microcytosis 1+ 04/02/21 12:31 Morphology Comment Noted (NOT SEEN) 04/02/21 12:31 PT 13.1 SECONDS (9.5-12.5) H 04/02/21 12:31 INR 1.14 04/02/21 12:31 Sodium 137 mmol/L (136-145) 04/02/21 12:31 Potassium 5.0 mmol/L (3.5-5.1) 04/02/21 12:31 Chloride 104 mmol/L (98-107) 04/02/21 12:31 Carbon Dioxide 28 mmol/L (21-32) 04/02/21 12:31 BUN 87 mg/dL (7-18) H 04/02/21 12:31 Creatinine 1.45 mg/dL (0.55-1.3) H 04/02/21 12:31 Estimated GFR 49 mL/min (=/>90) L 04/02/21 12:31 Glucose 104 mg/dL (74-106) 04/02/21 12:31 Lactic Acid 1.0 mmol/L (0.4-2.0) 04/02/21 15:35 Calcium 8.6 mg/dL (8.5-10.1) 04/02/21 12:31 Magnesium 3.2 mg/dL (1.8-2.4) H 04/02/21 12:31 Total Bilirubin 0.5 mg/dL (0.2-1.0) 04/02/21 12:31 Direct Bilirubin 0.2 mg/dL (0-0.2) 04/02/21 12:31 AST 45 U/L (15-37) H 04/02/21 12:31 ALT 113 U/L (12-78) H 04/02/21 12:31 Alkaline Phosphatase 89 U/L (45-117) 04/02/21 12:31 Rapid Troponin I 0.02 ng/mL (0.0-0.045) 04/02/21 12:31 NT-Pro-B Natriuret Pep 91671 pg/mL (<125) H 04/02/21 12:31 Serum Total Protein 6.3 g/dL (6.4-8.2) L 04/02/21 12:31 Albumin 2.7 g/dL (3.4-5.0) L 04/02/21 12:31 Globulin 3.6 g/dL (2.3-3.5) H 04/02/21 12:31 Albumin/Globulin Ratio 0.8 (1.1-1.8) L 04/02/21 12:31 Lipase 115 U/L (73-393) 04/02/21 12:31 TSH 1.480 uIU/mL (0.360-3.740) 04/02/21 12:31 TSH Cancelled 04/02/21 12:31 Free T4 1.01 ng/dL (0.76-1.46) 04/02/21 12:31 Urine pH 7.0 (5.0-7.0) 04/02/21 12:46 Ur Specific [place] 1.020 (1.005-1.030) 04/02/21 12:46 Glucose (UA)(Auto) Negative (Negative) 04/02/21 12:46 Urine Ketones Negative (Negative) 04/02/21 12:46 Urine Blood 1+ (Negative) H 04/02/21 12:46 Urine Nitrite Negative (Negative) 04/02/21 12:46 Ur Leukocyte Esterase 1+ (Negative) H 04/02/21 12:46 Urine Total Protein 3+ (Negative) H 04/02/21 12:46 SARS-CoV-2 Rap RNA(RT-PCR) Negative (NEGATIVE) 04/02/21 12:31 Smear Scan Ok (OK) 04/02/21 12:31 ABO/Rh A POSITIVE 04/02/21 12:31 Solid Phase Ab Screen Negative 04/02/21 12:31 Crossmatch See Detail 04/02/21 12:31 Assessment And Plan - Plan Physical EXam: General: Alert, In no apparent distress, Cachectic HEENT: Atraumatic, Normocephalic Neck: Supple, 2+ carotid pulse no bruit Respiratory: Clear to auscultation bilaterally, Normal air movement Cardiovascular: No edema, Regular rate/rhythm Gastrointestinal: Normal bowel sounds, Other (PEG tube. Insertion site with slight erythema) Musculoskeletal: No swelling, No contractures Integumentary: No rashes, No breakdown, No significant lesion, Other (Superficial skin tear noted to left lateral thigh) Conclusions/Impression: Antibiotics: Meropenem Start: 04/02 Stop:-- Assessment/plan Recurrent urinary tract infection Urine culture pending. Patient was recently treated for a UTI with a 10 day course of a cephalosporin. Continue current antibiotic therapy and tailor antibiotics based off culture report. Preliminary urine culture growing gram- negative rods, awaiting full report. Blood cultures show no growth at 48 hr. Possible left lower lobe pneumonia CT chest showed a left lower lobe opacity, meropenem started due to concern for possible aspiration pneumonia any for anaerobic coverage. Leukocytosis with left shift Continuing broad-spectrum IV antibiotic. Continue to monitor and watch fever curve. Diabetes, CKD stage 3, CVA Medical management per primary team Plan of care discussed Dr. Ortega Thank you for consultation Physician Review: Patient Assessed, Agree with Above Assessment and Plan Physician Review Additional Text: Physical exam GEN: Alert, orientedx2, NAD HEENT: Normal conjunctiva, sclera anicteric CV: Regular rate and rhythm, no edema Pulm: Nonlabored respiration on room air ABD: Soft, nontender, nondistended, PEG Tube in place, minimal erythema, no purulent drainage Neuro: Normal speech, normal affect Skin: Superficial skin tear noted to lateral thigh Problem List acute cystitis Acute hypoxemic respiratory failure secondary to acute on chronic diastolic CHF acute metabolic encephalopathy secondary to UTI bradycardia Diabetes mellitus type 2, non-insulin dependent h/o PEG tube s/p aspiration pneumonia Anemia of chronic disease with iron deficiency Chronic Hernandez catheter with history of urinary retention, recurrent UTIs History of CAD with previous CABG Hypertension Hyperlipidemia Anemia - appears at baseline, similar to recent discharge ~1 month ago. 2 units of PRBC ordered in the ER. Appropriate response Acute on Chronic diastolic CHF. Continue diuresis with Lasix and home medications. Daily weight and strict I\O SIRS on admission, f/u cultures, continue IV antibiotics ID consulted given recurrent infections acute cystitis with indwelling hernandez and possible LLL pneumonia DM2. BS monitoring with sliding scale insulin. Leukocytosis. Blood cultures pending. Continue antibiotics. PEG tube in place, mild insertion site erythema. h/o aspiration pneumonia in the past. states he has been doing well with regular food, sees speech therapy at home, told me no restriction Constipation. Noted on imagine. Patient placed on laxatives. Iron deficiency anemia - continue ferrous sulfate. Hx of Urinary retention. Continue hernandez care Hx of Chronic UTI. Continue antibiotics. Hx of CAD and CABG: Continue home medicationss. Hypertension: Poorly controlled. Continue home medications and labetalol prn. Hyperlipidemia: Continue statin DVT prophylaxis with heparin sub Hyperglycemia this morning, was given steroids yesterday, steroids discontinued.
--- NOTE | 2021-04-04 14:31 | P.PN ---
Subjective Date of Service: 04/04/21 Chief Complaint: Generalized weakness, UTI Patient states he is feeling much better today. Stated he had a good bowel movement. His appetite has improved. He denies shortness of breath. He denies coughing. He is tolerating his meals. No fever today. Physical Examination - Vital Signs Temperature: 98.9 F Blood Pressure: 153/96 Pulse: 57 Respirations: 18 Pulse Ox (%): 97 - Physical Exam General: Alert, In no apparent distress HEENT: Mucous membr. moist/pink Neck: JVD not distended Respiratory: Other (Mild bibasilar crackles) Cardiovascular: Regular rate/rhythm, Normal S1 S2 Gastrointestinal: Normal bowel sounds, Soft and benign, Other (PEG tube) Musculoskeletal: No swelling Integumentary: No rashes Neurological: Other (No focal motor deficit) Assessment And Plan Physician Review: Patient Assessed, Agree with Above Assessment and Plan Physician Review Additional Text: Physical exam GEN: Alert, orientedx2, NAD HEENT: Normal conjunctiva, sclera anicteric CV: Regular rate and rhythm, no edema Pulm: Nonlabored respiration on room air ABD: Soft, nontender, nondistended, PEG Tube in place, minimal erythema, no purulent drainage Neuro: Normal speech, normal affect Skin: Superficial skin tear noted to lateral thigh Problem List acute cystitis Acute hypoxemic respiratory failure secondary to acute on chronic diastolic CHF acute metabolic encephalopathy secondary to UTI bradycardia Diabetes mellitus type 2, non-insulin dependent h/o PEG tube s/p aspiration pneumonia Anemia of chronic disease with iron deficiency Chronic Hernandez catheter with history of urinary retention, recurrent UTIs History of CAD with previous CABG Hypertension Hyperlipidemia Anemia - appears at baseline. SP 2 units PRBC transfusion. Hemoglobin is stable at 10. Acute on Chronic diastolic CHF. Continue diuresis with Lasix and home medications. Daily weight and strict I\O SIRS on admission, urine culture is growing Gram negative rods, continue IV antibiotics ID consulted given recurrent infections acute cystitis with indwelling hernandez and possible LLL pneumonia DM2. BS monitoring with sliding scale insulin. Leukocytosis. Blood cultures: No growth. Continue antibiotics. PEG tube in place, mild insertion site erythema. h/o aspiration pneumonia in the past. states he has been doing well with regular food, sees speech therapy at home-no full consistency restrictions. Constipation. Noted on imagine. Patient placed on laxatives. Had a bowel movement today. Iron deficiency anemia - continue ferrous sulfate. Hx of Urinary retention. Continue hernandez care Hx of Chronic UTI. Continue antibiotics. Hx of CAD and CABG: Continue home medicationss. Hypertension: Poorly controlled. Continue home medications and labetalol prn. Hyperlipidemia: Continue statin DVT prophylaxis with heparin sub
[2021-04-04] MEDS: TRAZODONE 150 MG TAB FT SCH (20:01)
[2021-04-04] MEDS: ASPIRIN EC 81 MG TAB PO SCH (20:02)
[2021-04-04] MEDS: ATORVASTATIN 80 MG TAB FT SCH (20:02)
[2021-04-04] MEDS: DOXAZOSIN 2 MG TAB FT SCH (20:03)
[2021-04-05] MEDS: SUCRALFATE 1GM/10ML UCUP FT SCH ×4 (01:14→16:42)
[2021-04-05 06:14] LABS: Absolute Lymphocytes (CBC) 1.3 K/uL (0.7-4.9); Basophils % 0.7 % (0-1.3); Hematocrit 28.9 % (39.6-49.0); Lymphocytes % 15.3 % (15.3-44.8); MPV 11.6 fL (7.6-11.3); RBC Red Blood Cell Count 3.81 M/uL (4.33-5.43)
[2021-04-05 06:50] LABS: Potassium 5.7 mmol/L (3.5-5.1)
[2021-04-05] MEDS ORDERED: SOD POLYSTYREN SUL 15 GM/60 ML UCUP PO ONE ×2 (06:53→19:30)
[2021-04-05] MEDS: INSULIN -REGULAR HUMAN 50 UNIT/0.5 ML ML SQ SCH ×4 (07:30→20:46)
[2021-04-05] MEDS: Meropenem 1 GM/100 ML BAG IV SCH (08:22)
[2021-04-05] MEDS: FLUCONAZOLE 200mg IVPB 200 MG/100 ML BAG IV SCH (08:22)
[2021-04-05] MEDS: GABAPENTIN 300 MG CAP FT SCH ×2 (08:23→20:45)
[2021-04-05] MEDS: FUROSEMIDE 20 MG TABLET PO SCH ×2 (08:23→20:44)
[2021-04-05] MEDS: ASCORBIC ACID 500 MG TABLET FT SCH ×2 (08:24→13:38)
[2021-04-05] MEDS: ESCITALOPRAM 20 MG TAB FT SCH (08:24)
[2021-04-05] MEDS: CLOPIDOGREL 75 MG TABLET FT SCH (08:24)
[2021-04-05] MEDS: AMLODIPINE 10 MG TAB FT SCH (08:24)
[2021-04-05] MEDS: PANTOPRAZOLE 40MG TABLET PO SCH (08:24)
[2021-04-05] MEDS: HEPARIN 5000 UNIT/ML 1 ML VIAL SQ SCH ×2 (08:25→20:45)
[2021-04-05] MEDS: GLUCERNA 1.5 CAL 1,000 ML BOT FT SCH ×4 (08:25→20:45)
[2021-04-05] MEDS: SENOSIDES 8.6 MG TAB PO SCH ×2 (08:26→20:46)
[2021-04-05] MEDS: LACTULOSE 20 GM/30 ML UCUP PO SCH ×2 (08:26→20:45)
[2021-04-05] MEDS: METOPROLOL TAR 50 MG TAB FT SCH ×2 (08:26→21:00)
--- NOTE | 2021-04-05 11:56 | P.PN ---
Subjective Date of Service: 04/05/21 Chief Complaint: Generalized weakness, UTI Patient seen examined at bedside, urine culture growing Serratia sensitive to Augmentin. Patient started on renally dosed Augmentin. Review of Systems 10-point ROS is otherwise unremarkable Physical Examination - Vital Signs Temperature: 97.8 F Blood Pressure: 139/65 Pulse: 55 Respirations: 22 Pulse Ox (%): 99 - Studies Laboratory Last Values WBC 18.20 K/uL (4.3-10.9) H 04/02/21 12:31 RBC 3.27 M/uL (4.33-5.43) L 04/02/21 12:31 Hgb 7.4 g/dL (13.6-17.9) L 04/02/21 12:31 Hct 23.3 % (39.6-49.0) L 04/02/21 12:31 MCV 71.1 fL (80-100) L D 04/02/21 12:31 MCH 22.6 pg (27.0-35.0) L 04/02/21 12:31 MCHC 31.8 g/dL (32.0-36.0) L 04/02/21 12:31 RDW 16.0 % (12.1-15.2) H 04/02/21 12:31 Plt Count 109 K/uL (152-406) L 04/02/21 12:31 MPV 10.6 fL (7.6-11.3) 04/02/21 12:31 Neutrophils % 87.3 % (41.7-73.7) H 04/02/21 12:31 Lymphocytes % 6.1 % (15.3-44.8) L 04/02/21 12:31 Monocytes % 6.2 % (3.3-12.3) 04/02/21 12:31 Eosinophils % 0.2 % (0-4.4) 04/02/21 12:31 Basophils % 0.2 % (0-1.3) 04/02/21 12:31 Absolute Neutrophils 15.9 K/uL (1.8-8.0) H 04/02/21 12:31 Absolute Lymphocytes 1.1 K/uL (0.7-4.9) 04/02/21 12:31 Absolute Monocytes 1.1 K/uL (0.1-1.3) 04/02/21 12:31 Absolute Eosinophils 0.0 K/uL (0-0.5) 04/02/21 12:31 Absolute Basophils 0.0 K/uL (0-0.5) 04/02/21 12:31 Platelet Estimate Decr 04/02/21 12:31 Hypochromasia 1+ 04/02/21 12:31 Poikilocytosis 1+ 04/02/21 12:31 Anisocytosis 1+ 04/02/21 12:31 Microcytosis 1+ 04/02/21 12:31 Morphology Comment Noted (NOT SEEN) 04/02/21 12:31 PT 13.1 SECONDS (9.5-12.5) H 04/02/21 12:31 INR 1.14 04/02/21 12:31 Sodium 137 mmol/L (136-145) 04/02/21 12:31 Potassium 5.0 mmol/L (3.5-5.1) 04/02/21 12:31 Chloride 104 mmol/L (98-107) 04/02/21 12:31 Carbon Dioxide 28 mmol/L (21-32) 04/02/21 12:31 BUN 87 mg/dL (7-18) H 04/02/21 12:31 Creatinine 1.45 mg/dL (0.55-1.3) H 04/02/21 12:31 Estimated GFR 49 mL/min (=/>90) L 04/02/21 12:31 Glucose 104 mg/dL (74-106) 04/02/21 12:31 Lactic Acid 1.0 mmol/L (0.4-2.0) 04/02/21 15:35 Calcium 8.6 mg/dL (8.5-10.1) 04/02/21 12:31 Magnesium 3.2 mg/dL (1.8-2.4) H 04/02/21 12:31 Total Bilirubin 0.5 mg/dL (0.2-1.0) 04/02/21 12:31 Direct Bilirubin 0.2 mg/dL (0-0.2) 04/02/21 12:31 AST 45 U/L (15-37) H 04/02/21 12:31 ALT 113 U/L (12-78) H 04/02/21 12:31 Alkaline Phosphatase 89 U/L (45-117) 04/02/21 12:31 Rapid Troponin I 0.02 ng/mL (0.0-0.045) 04/02/21 12:31 NT-Pro-B Natriuret Pep 73817 pg/mL (<125) H 04/02/21 12:31 Serum Total Protein 6.3 g/dL (6.4-8.2) L 04/02/21 12:31 Albumin 2.7 g/dL (3.4-5.0) L 04/02/21 12:31 Globulin 3.6 g/dL (2.3-3.5) H 04/02/21 12:31 Albumin/Globulin Ratio 0.8 (1.1-1.8) L 04/02/21 12:31 Lipase 115 U/L (73-393) 04/02/21 12:31 TSH 1.480 uIU/mL (0.360-3.740) 04/02/21 12:31 TSH Cancelled 04/02/21 12:31 Free T4 1.01 ng/dL (0.76-1.46) 04/02/21 12:31 Urine pH 7.0 (5.0-7.0) 04/02/21 12:46 Ur Specific [place] 1.020 (1.005-1.030) 04/02/21 12:46 Glucose (UA)(Auto) Negative (Negative) 04/02/21 12:46 Urine Ketones Negative (Negative) 04/02/21 12:46 Urine Blood 1+ (Negative) H 04/02/21 12:46 Urine Nitrite Negative (Negative) 04/02/21 12:46 Ur Leukocyte Esterase 1+ (Negative) H 04/02/21 12:46 Urine Total Protein 3+ (Negative) H 04/02/21 12:46 SARS-CoV-2 Rap RNA(RT-PCR) Negative (NEGATIVE) 04/02/21 12:31 Smear Scan Ok (OK) 04/02/21 12:31 ABO/Rh A POSITIVE 04/02/21 12:31 Solid Phase Ab Screen Negative 04/02/21 12:31 Crossmatch See Detail 04/02/21 12:31 Microbiology Data (last 24 hrs): 04/02/21 12:47 Clean Catch Urine Maxwell Count - Final >100,000 CFU/ML. 04/02/21 12:47 Clean Catch Urine - Final Serratia Marcescens Gram Neg Keenan Assessment And Plan - Plan Physical EXam: General: Alert, In no apparent distress, Cachectic HEENT: Atraumatic, Normocephalic Neck: Supple, 2+ carotid pulse no bruit Respiratory: Clear to auscultation bilaterally, Normal air movement Cardiovascular: No edema, Regular rate/rhythm Gastrointestinal: Normal bowel sounds, Other (PEG tube. Insertion site with slight erythema) Musculoskeletal: No swelling, No contractures Integumentary: No rashes, No breakdown, No significant lesion, Other (Superficial skin tear noted to left lateral thigh) Conclusions/Impression: Antibiotics: Meropenem Start: 04/02 Stop: 04/05 Augmentin Start: 04/05 Stop: 04/09 Assessment/plan Recurrent urinary tract infection Patient was recently treated for a UTI with a 10 day course of a cephalosporin. Urine culture growing Serratia sensitive to Augmentin, patient started on renally dosed Augmentin. Continue until 04/09. Urinary analysis grew yeast, continue 14 day course of oral Diflucan. Possible left lower lobe pneumonia CT chest showed a left lower lobe opacity, meropenem started due to concern for possible aspiration pneumonia any for anaerobic coverage. Patient switched to Augmentin, still has anaerobic coverage. Leukocytosis with left shift Continuing broad-spectrum IV antibiotic. Continue to monitor and watch fever curve. Diabetes, CKD stage 3, CVA Medical management per primary team Plan of care discussed Dr. Ortega Thank you for consultation Physician Review: Patient Assessed, Agree with Above Assessment and Plan
--- NOTE | 2021-04-05 13:08 | P.PN ---
Subjective Date of Service: 04/05/21 Chief Complaint: Generalized weakness, UTI Patient complaining of mild sore throat. Had not eaten anything by mouth since morning by the time I saw him. Only fed through the PEG tube. He had a bowel movement this morning. Denies any shortness of breath. No loss of appetite. He denies coughing. No fever. Physical Examination - Vital Signs Temperature: 97.8 F Blood Pressure: 139/65 Pulse: 55 Respirations: 22 Pulse Ox (%): 99 - Studies Microbiology Data (last 24 hrs): 04/02/21 12:47 Clean Catch Urine [place] Count - Final >100,000 CFU/ML. 04/02/21 12:47 Clean Catch Urine - Final Serratia Marcescens Gram Neg Keenan Assessment And Plan Physician Review: Patient Assessed, Agree with Above Assessment and Plan Physician Review Additional Text: Physical exam GEN: Alert, orientedx2, NAD HEENT: Normal conjunctiva, sclera anicteric. Pharynx looks dry, no erythema or exudate. CV: Regular rate and rhythm, no edema Pulm: Nonlabored respiration on room air, clear to auscultation bilaterally ABD: Soft, nontender, nondistended, PEG Tube in place, minimal erythema, no purulent drainage Neuro: Normal speech, normal affect Skin: Superficial skin tear noted to lateral thigh Genitourinary: Hernandez catheter. Mild penile swelling. Problem List acute cystitis Acute hypoxemic respiratory failure secondary to acute on chronic diastolic CHF acute metabolic encephalopathy secondary to UTI bradycardia Diabetes mellitus type 2, non-insulin dependent h/o PEG tube s/p aspiration pneumonia Anemia of chronic disease with iron deficiency Chronic Hernandez catheter with history of urinary retention, recurrent UTIs History of CAD with previous CABG Hypertension Hyperlipidemia Anemia - appears to be at baseline. SP 2 units PRBC transfusion. Hemoglobin is stable between 9 and 10 Acute on Chronic diastolic CHF. Continue diuresis with Lasix and home medications. Daily weight and strict I\O SIRS on admission, urine culture is growing Gram negative rods, continue IV antibiotics ID consulted given recurrent infections. acute cystitis with indwelling hernandez and possible LLL pneumonia. Urine culture is growing Serratia. Leukocytosis resolved. Blood cultures: No growth. No fever for several days. Antibiotics switched to oral Augmentin. DM2. BS monitoring with sliding scale insulin. PEG tube in place, mild insertion site erythema. h/o aspiration pneumonia in the past. states he has been doing well with regular food, sees speech therapy at home-no full consistency restrictions. Constipation. Patient placed on laxatives. Will discontinue Lactulose. Iron deficiency anemia - continue ferrous sulfate. Hx of Urinary retention. Continue hernandez care Hx of Chronic UTI. Continue antibiotics. Hx of CAD and CABG: Continue home medicationss. Hypertension: Poorly controlled. Continue home medications and labetalol prn. Hyperlipidemia: Continue statin. Sore throat: Secondary to dryness in the pharynx. Keep mouth and parents wet. Hyperkalemia: Nephrology consulted to assist with management. Patient given Kayexalate today. Follow potassium level. DVT prophylaxis with heparin sub
[2021-04-05 15:51] LABS: C.diff Antigen/Toxin Ag neg : Tox neg (NEG : NEG)
[2021-04-05] MEDS ORDERED: INSULIN -REGULAR HUMAN 50 UNIT/0.5 ML ML IV STA (19:29)
[2021-04-05] MEDS ORDERED: D50W 25 GM/50 ML SYRINGE IV STA (19:29)
[2021-04-05] MEDS ORDERED: ALBUTEROL 2.5 MG/3 ML NEB SOL NEB ONE (19:37)
[2021-04-05] MEDS: TRAZODONE 150 MG TAB FT SCH (20:43)
[2021-04-05] MEDS: ATORVASTATIN 80 MG TAB FT SCH (20:44)
[2021-04-05] MEDS: ASPIRIN EC 81 MG TAB PO SCH (20:44)
[2021-04-05] MEDS: AMOX/K CLAV 875 MG TAB PO SCH (20:44)
[2021-04-05] MEDS: DOXAZOSIN 2 MG TAB FT SCH (20:44)
[2021-04-06 04:57] LABS: Absolute Lymphocytes (CBC) 1.3 K/uL (0.7-4.9); Basophils % 0.7 % (0-1.3); Hematocrit 26.9 % (39.6-49.0); Lymphocytes % 18.4 % (15.3-44.8); MPV 11.3 fL (7.6-11.3); RBC Red Blood Cell Count 3.48 M/uL (4.33-5.43)
[2021-04-06 05:26] LABS: Magnesium 3.1 mg/dL (1.8-2.4); Potassium 5.4 mmol/L (3.5-5.1)
[2021-04-06] MEDS: INSULIN -REGULAR HUMAN 50 UNIT/0.5 ML ML SQ SCH ×4 (07:30→20:28)
[2021-04-06] MEDS: SUCRALFATE 1GM/10ML UCUP FT SCH ×4 (08:22→20:31)
[2021-04-06] MEDS: SENOSIDES 8.6 MG TAB PO SCH ×2 (08:24→20:00)
[2021-04-06] MEDS: AMOX/K CLAV 875 MG TAB PO SCH ×2 (08:24→20:26)
[2021-04-06] MEDS: FUROSEMIDE 20 MG TABLET PO SCH (08:24)
[2021-04-06] MEDS: ESCITALOPRAM 20 MG TAB FT SCH (08:25)
[2021-04-06] MEDS: METOPROLOL TAR 50 MG TAB FT SCH ×2 (08:26→20:00)
[2021-04-06] MEDS: CLOPIDOGREL 75 MG TABLET FT SCH (08:26)
[2021-04-06] MEDS: PANTOPRAZOLE 40MG TABLET PO SCH (08:26)
[2021-04-06] MEDS: HEPARIN 5000 UNIT/ML 1 ML VIAL SQ SCH ×2 (08:27→20:28)
[2021-04-06] MEDS: AMLODIPINE 10 MG TAB FT SCH (08:27)
[2021-04-06] MEDS: GABAPENTIN 300 MG CAP FT SCH ×2 (08:27→20:28)
[2021-04-06] MEDS: GLUCERNA 1.5 CAL 1,000 ML BOT FT SCH ×2 (08:28→12:32)
[2021-04-06] MEDS: LACTULOSE 20 GM/30 ML UCUP PO SCH (08:28)
[2021-04-06] MEDS: NEPRO 1,000 ML BOT FT SCH ×4 (08:38→20:00)
[2021-04-06] MEDS ORDERED: FLUCONAZOLE 100 MG TAB PO SCH (09:00)
--- NOTE | 2021-04-06 10:49 | P.CNS ---
Date of Consult: 04/06/21 Reason for Consult: OSCAR/ Hyperkalemia Requesting Physician: geeta osuna Chief Complaint: Generalized weakness, UTI History of Present Illness: Patient is a 66-year-old male with a past medical history significant for chronic diastolic congestive heart failure, diabetes mellitus type 2, CKD 3, ALICIA, UTI, CVA who presents with complaint of generalized weakness and bradycardia. Patient reported that patient was recently treated with cefuroxime antibiotics for a period of 10 days for a UTI. Patient spouse reported that she noticed that patient's urine was cloudy. Patient reports associated signs and symptoms of diaphoresis, weakness, fatigue, bradycardia, insomnia and visual hallucinations. Patient denies any other signs or symptoms. Symptoms are aggravated or relieved by nothing. Family decided to bring patient to the hospital for medical evaluation. 15:23 This 66 yrs old Male presents to ER via Carried with complaints of low hr, stanley pale and weak, possible uti. 15:23 The patient presents with a history of irregular heart beat. Context: The symptoms stanley occur at rest. Onset: The symptoms/episode began/occurred today. Duration: The patient or guardian reports multiple episodes, that are intermittent. Modifying factors: The symptoms are aggravated by nothing. The symptoms are alleviated by nothing. The patient presents with urinary symptoms, hernandez, cloudy. at home, weakness, low hr, possible uti, hernandez, has peg. Associated signs and symptoms: Pertinent positives: dysuria. Associated signs and symptoms: Pertinent positives: lightheadedness. Allergies spironolactone Adverse Reaction (Verified 04/02/21 23:03) Anaphylaxis nexen Adverse Reaction (Uncoded 02/08/21 23:48) hallucination Home medications list reviewed: Yes Home Medications: Aspirin [Adult Aspirin Regimen] 81 mg FT BEDTIME 06/04/20 Atorvastatin Calcium [Lipitor] 80 mg FT BEDTIME 06/04/20 Amlodipine [Norvasc*] 10 mg FT DAILY 07/16/20 Clopidogrel Bisulfate [Plavix*] 75 mg FT DAILY 07/16/20 Escitalopram [Lexapro*] 30 mg FT DAILY 07/16/20 Gabapentin 300 mg FT BID 07/16/20 Doxazosin [Cardura*] 2 mg FT BEDTIME 30 Days #30 tab 12/08/20 Ascorbic Acid [Vitamin C] 2,000 mg FT TID 12/16/20 Sucralfate [Carafate] 100 mg FT SEECOM 12/16/20 Trazodone HCl 150 tab FT BEDTIME 12/16/20 Ferrous Sulfate [Ferrous Sulfate Elixir*] 5 ml FT BID 02/09/21 Metoprolol Tartrate [Lopressor] 100 mg FT BID 02/09/21 Glucerna 1.5 Higinio 360 ml FT QID #30 bot 02/24/21 Furosemide 20 mg PO BID 04/02/21 Insulin -Regular Human [Novolin -R*] 100 units SQ ACHS 04/02/21 - Past Medical/Surgical History Diabetic: Yes -: Diabetes mellitus type 2, insulin-dependent -: CAD -: Hypertension -: Hyperlipidemia -: COPD -: Tobacco abuse -: Fracture t12 L3 -: PEG tube -: CKD 3 -: seizures -: Stroke -: Chronic diastolic congestive -: Knee surgery -: I&D lower right buttock -: hiatal hernia repair -: I and D to the left foot -: Left Bipolar Hemiarthroplasty 04/06/19 -: Hip surgery -: CABG -: hand sx, PEG Psychosocial/ Personal History: Patient is single. He lives with his son. - Family History Father Medical History: Heart disease, Hypertension, Lung disease, GI disease, Diabetes, Cancer, Other (see notes) Notes: parkinson's disease Mother Medical History: Heart disease, Hypertension, Diabetes, Cancer Sister Medical History: Cancer - Social History Smoking Status: Unknown if ever smoked Alcohol use: No CD- Drugs: No Caffeine use: Yes Place of Residence: Home Review of Systems 10-point ROS is otherwise unremarkable General: Weakness, Malaise Gastrointestinal: Diarrhea Neurological: Weakness Physical Examination Temp Pulse Resp BP Pulse Ox 98.1 F 78 17 141/55 H 95 04/06/21 04:00 04/06/21 08:27 04/06/21 04:00 04/06/21 08:27 04/06/21 04:00 General: In no apparent distress, Cooperative Neck: Supple Respiratory: Clear to auscultation bilaterally Cardiovascular: No edema, Regular rate/rhythm Gastrointestinal: Soft and benign, Non-distended Musculoskeletal: No clubbing, No contractures Integumentary: No rashes, No cyanosis Neurological: Normal speech Blood work reviewed in the chart. Imagings Data: EXAM DESCRIPTION: CT - Chest Abd Pelvis Wo Con - 04/02/2021 3:09 pm CLINICAL HISTORY: Cough and abdominal pain COMPARISON: October 2020 TECHNIQUE: Computed axial tomography of the chest, abdomen and pelvis was obtained. Oral contrast was given. IV contrast was not requested. All CT scans are performed using dose optimization technique as appropriate and may include automated exposure control or mA/KV adjustment according to patient size. FINDINGS: The evaluation of mediastinum, tiffany, vessels and solid organs is limited secondary to the lack of IV contrast administration No mediastinal or hilar lymphadenopathy is seen. Minimal bilateral pleural effusions. A pericardial effusion is not seen. Mild left lower lobe opacities with small area of atelectasis. The liver, spleen, pancreas, adrenals and kidneys appear grossly bri Percutaneous tube within the stomach. There is no evidence of diverticulitis. A moderate amount of stool throughout colon. Cholelithiasis Compression fractures involving T12 and L3 unchanged Hernandez catheter within the bladder IMPRESSION: Mild left lower lobe opacities probably mild pneumonia. Mild left lower lobe atelectasis Cholelithiasis Moderate amount stool within the colon EXAM DESCRIPTION: RADChest Single View04/02/2021 12:24 pm CLINICAL HISTORY: Cough COMPARISON: February 2021 FINDINGS: Mild bilateral pulmonary opacities. Heart is mildly enlarged. Postsurgical changes involve the chest Eventration left hemidiaphragm IMPRESSION: Mild bilateral pulmonary opacities probably interstitial pulmonary edema Conclusions/Impression: OSCAR likely due to hypovolemia CKD III with proteinuria -No NSAIDs -Start free water through GT Hyperkalemia -Kayexalate as ordered -Agree with Nepro TF -Start free water through GT HTN with CKD/ CHF -Continue Amlodipine Diastolic CHF, chronic -Low sodium diet -Continue Metoprolol DM II with CKD & Hyperglycemia -RISS Moderate malnutrition -Maintain nutrition -Agree with changing to Nepro TFs Anemia in chronic illness -Monitor H&H -Transfuse PRBC as needed A/C cystitis -Continue Augmentin Thank you kindly for the consultation. Case reviewed with Dr. Osuna
--- NOTE | 2021-04-06 11:26 | P.PN ---
Subjective Date of Service: 04/06/21 Chief Complaint: Generalized weakness, UTI No issues overnight. Patient have had multiple bowel movements. About 4 times since last night. No fever. Hyperkalemia persist. Serum creatinine increased slightly. Physical Examination - Vital Signs Temperature: 98.0 F Blood Pressure: 141/55 Pulse: 78 Respirations: 18 Pulse Ox (%): 94 - Physical Exam General: Alert, In no apparent distress HEENT: Mucous membr. moist/pink Neck: JVD not distended Respiratory: Clear to auscultation bilaterally, Normal air movement Cardiovascular: No edema, Normal S1 S2, Other (Bradycardia) Gastrointestinal: Normal bowel sounds, Soft and benign, Non-distended, No tenderness Musculoskeletal: No swelling Integumentary: No rashes Neurological: Other (No focal motor deficit) - Studies Microbiology Data (last 24 hrs): 04/02/21 12:47 Clean Catch Urine [place] Count - Final >100,000 CFU/ML. 04/02/21 12:47 Clean Catch Urine - Final Serratia Marcescens Gram Neg Keenan Assessment And Plan Physician Review: Patient Assessed, Agree with Above Assessment and Plan Physician Review Additional Text: Physical exam GEN: Alert, orientedx2, NAD HEENT: Normal conjunctiva, sclera anicteric. Pharynx looks dry, no erythema or exudate. CV: Regular rate and rhythm, no edema Pulm: Nonlabored respiration on room air, clear to auscultation bilaterally ABD: Soft, nontender, nondistended, PEG Tube in place, minimal erythema, no purulent drainage Neuro: Normal speech, normal affect Skin: Superficial skin tear noted to lateral thigh Genitourinary: Hernandez catheter. Mild penile swelling. Problem List acute cystitis Acute hypoxemic respiratory failure secondary to acute on chronic diastolic CHF acute metabolic encephalopathy secondary to UTI bradycardia Diabetes mellitus type 2, non-insulin dependent h/o PEG tube s/p aspiration pneumonia Anemia of chronic disease with iron deficiency Chronic Hernandez catheter with history of urinary retention, recurrent UTIs History of CAD with previous CABG Hypertension Hyperlipidemia Anemia - appears to be at baseline. SP 2 units PRBC transfusion. Hemoglobin is stable between 9 and 10 Acute on Chronic diastolic CHF. Hold Lasix today due to which rise in serum creatinine. Patient is getting dehydrated. Daily weight and strict I\O ID consulted given recurrent infections. acute cystitis with indwelling hernandez and possible LLL pneumonia. Urine culture is growing Serratia. Leukocytosis resolved. Blood cultures: No growth. No fever for several days. Antibiotics switched to oral Augmentin. DM2. BS monitoring with sliding scale insulin. PEG tube in place. h/o aspiration pneumonia in the past. states he has been doing well with regular food, sees speech therapy at home-no full consistency restrictions. Patient tolerating food without any issues. Constipation resolved. The patient has diarrhea. Discontinued lactulose. Iron deficiency anemia - continue ferrous sulfate. Hx of Urinary retention. Continue hernandez care Hx of Chronic UTI. On antibiotics. Hx of CAD and CABG: Continue home medicationss. Hypertension: Poorly controlled. Continue home medications and labetalol prn. Hyperlipidemia: Continue statin. Sore throat: Secondary to dryness in the pharynx. Keep mouth and parents wet. Hyperkalemia: Nephrology consulted to assist with management. Patient given Kayexalate yesterday. Changed feeding formula to Nepro with low K. nephrology input appreciated. Free water flushes. Monitor renal function. Follow potassium level. DVT prophylaxis with heparin sub
--- NOTE | 2021-04-06 11:33 | P.PN ---
Subjective Date of Service: 04/06/21 Chief Complaint: Generalized weakness, UTI Patient seen examined at bedside, no acute events. Review of Systems 10-point ROS is otherwise unremarkable Physical Examination - Vital Signs Temperature: 98.0 F Blood Pressure: 141/55 Pulse: 78 Respirations: 18 Pulse Ox (%): 94 - Studies Laboratory Last Values WBC 18.20 K/uL (4.3-10.9) H 04/02/21 12:31 RBC 3.27 M/uL (4.33-5.43) L 04/02/21 12:31 Hgb 7.4 g/dL (13.6-17.9) L 04/02/21 12:31 Hct 23.3 % (39.6-49.0) L 04/02/21 12:31 MCV 71.1 fL (80-100) L D 04/02/21 12:31 MCH 22.6 pg (27.0-35.0) L 04/02/21 12:31 MCHC 31.8 g/dL (32.0-36.0) L 04/02/21 12:31 RDW 16.0 % (12.1-15.2) H 04/02/21 12:31 Plt Count 109 K/uL (152-406) L 04/02/21 12:31 MPV 10.6 fL (7.6-11.3) 04/02/21 12:31 Neutrophils % 87.3 % (41.7-73.7) H 04/02/21 12:31 Lymphocytes % 6.1 % (15.3-44.8) L 04/02/21 12:31 Monocytes % 6.2 % (3.3-12.3) 04/02/21 12:31 Eosinophils % 0.2 % (0-4.4) 04/02/21 12:31 Basophils % 0.2 % (0-1.3) 04/02/21 12:31 Absolute Neutrophils 15.9 K/uL (1.8-8.0) H 04/02/21 12:31 Absolute Lymphocytes 1.1 K/uL (0.7-4.9) 04/02/21 12:31 Absolute Monocytes 1.1 K/uL (0.1-1.3) 04/02/21 12:31 Absolute Eosinophils 0.0 K/uL (0-0.5) 04/02/21 12:31 Absolute Basophils 0.0 K/uL (0-0.5) 04/02/21 12:31 Platelet Estimate Decr 04/02/21 12:31 Hypochromasia 1+ 04/02/21 12:31 Poikilocytosis 1+ 04/02/21 12:31 Anisocytosis 1+ 04/02/21 12:31 Microcytosis 1+ 04/02/21 12:31 Morphology Comment Noted (NOT SEEN) 04/02/21 12:31 PT 13.1 SECONDS (9.5-12.5) H 04/02/21 12:31 INR 1.14 04/02/21 12:31 Sodium 137 mmol/L (136-145) 04/02/21 12:31 Potassium 5.0 mmol/L (3.5-5.1) 04/02/21 12:31 Chloride 104 mmol/L (98-107) 04/02/21 12:31 Carbon Dioxide 28 mmol/L (21-32) 04/02/21 12:31 BUN 87 mg/dL (7-18) H 04/02/21 12:31 Creatinine 1.45 mg/dL (0.55-1.3) H 04/02/21 12:31 Estimated GFR 49 mL/min (=/>90) L 04/02/21 12:31 Glucose 104 mg/dL (74-106) 04/02/21 12:31 Lactic Acid 1.0 mmol/L (0.4-2.0) 04/02/21 15:35 Calcium 8.6 mg/dL (8.5-10.1) 04/02/21 12:31 Magnesium 3.2 mg/dL (1.8-2.4) H 04/02/21 12:31 Total Bilirubin 0.5 mg/dL (0.2-1.0) 04/02/21 12:31 Direct Bilirubin 0.2 mg/dL (0-0.2) 04/02/21 12:31 AST 45 U/L (15-37) H 04/02/21 12:31 ALT 113 U/L (12-78) H 04/02/21 12:31 Alkaline Phosphatase 89 U/L (45-117) 04/02/21 12:31 Rapid Troponin I 0.02 ng/mL (0.0-0.045) 04/02/21 12:31 NT-Pro-B Natriuret Pep 38277 pg/mL (<125) H 04/02/21 12:31 Serum Total Protein 6.3 g/dL (6.4-8.2) L 04/02/21 12:31 Albumin 2.7 g/dL (3.4-5.0) L 04/02/21 12:31 Globulin 3.6 g/dL (2.3-3.5) H 04/02/21 12:31 Albumin/Globulin Ratio 0.8 (1.1-1.8) L 04/02/21 12:31 Lipase 115 U/L (73-393) 04/02/21 12:31 TSH 1.480 uIU/mL (0.360-3.740) 04/02/21 12:31 TSH Cancelled 04/02/21 12:31 Free T4 1.01 ng/dL (0.76-1.46) 04/02/21 12:31 Urine pH 7.0 (5.0-7.0) 04/02/21 12:46 Ur Specific [place] 1.020 (1.005-1.030) 04/02/21 12:46 Glucose (UA)(Auto) Negative (Negative) 04/02/21 12:46 Urine Ketones Negative (Negative) 04/02/21 12:46 Urine Blood 1+ (Negative) H 04/02/21 12:46 Urine Nitrite Negative (Negative) 04/02/21 12:46 Ur Leukocyte Esterase 1+ (Negative) H 04/02/21 12:46 Urine Total Protein 3+ (Negative) H 04/02/21 12:46 SARS-CoV-2 Rap RNA(RT-PCR) Negative (NEGATIVE) 04/02/21 12:31 Smear Scan Ok (OK) 04/02/21 12:31 ABO/Rh A POSITIVE 04/02/21 12:31 Solid Phase Ab Screen Negative 04/02/21 12:31 Crossmatch See Detail 04/02/21 12:31 Microbiology Data (last 24 hrs): 04/02/21 12:47 Clean Catch Urine [place] Count - Final >100,000 CFU/ML. 04/02/21 12:47 Clean Catch Urine - Final Serratia Marcescens Gram Neg Keenan Assessment And Plan - Plan Physical EXam: General: Alert, In no apparent distress, Cachectic HEENT: Atraumatic, Normocephalic Neck: Supple, 2+ carotid pulse no bruit Respiratory: Clear to auscultation bilaterally, Normal air movement Cardiovascular: No edema, Regular rate/rhythm Gastrointestinal: Normal bowel sounds, Other (PEG tube. Insertion site with slight erythema) Musculoskeletal: No swelling, No contractures Integumentary: No rashes, No breakdown, No significant lesion, Other (Superficial skin tear noted to left lateral thigh) Conclusions/Impression: Antibiotics: Meropenem Start: 04/02 Stop: 04/05 Augmentin Start: 04/05 Stop: 04/09 Assessment/plan Recurrent urinary tract infection Patient was recently treated for a UTI with a 10 day course of a cephalosporin. Urine culture growing Serratia sensitive to Augmentin, patient started on r enally dosed Augmentin. Continue until 04/09. Urinary analysis grew yeast, continue 14 day course of oral Diflucan. Possible left lower lobe pneumonia CT chest showed a left lower lobe opacity, meropenem started due to concern for possible aspiration pneumonia any for anaerobic coverage. Patient switched to Augmentin, still has anaerobic coverage. Leukocytosis with left shift Continuing broad-spectrum IV antibiotic. Continue to monitor and watch fever curve. Diabetes, CKD stage 3, CVA Medical management per primary team Plan of care discussed Dr. Ortega Thank you for consultation Physician Review: Patient Assessed, Agree with Above Assessment and Plan
[2021-04-06] MEDS: ASPIRIN EC 81 MG TAB PO SCH (20:00)
[2021-04-06] MEDS: TRAZODONE 150 MG TAB FT SCH (20:26)
[2021-04-06] MEDS: DOXAZOSIN 2 MG TAB FT SCH (20:26)
[2021-04-06] MEDS: ATORVASTATIN 80 MG TAB FT SCH (20:27)
[2021-04-07] MEDS: ACETAMINOPHEN 500 MG TAB PO PRN (00:59)
[2021-04-07 02:49] LABS: Urine Appearance CLEAR (Clear); Urine Bilirubin NEGATIVE (Negative); Urine Blood 2+ (Negative); Urine Color YELLOW (Yellow); Urine Glucose NEGATIVE (Negative); Urine Protein 3+ (Negative); Urine Specific Gravity 1.015 (1.005-1.030); Urine Urobilinogen 0.2 mg/dL (0.2-1.0)
[2021-04-07 03:09] LABS: Urine Bacteria 20-50 /HPF (NONE SEEN); Urine RBC 20-50 /HPF (NONE SEEN)
[2021-04-07 03:10] LABS: Urine Yeast MANY (NONE SEEN)
[2021-04-07 06:09] LABS: Absolute Lymphocytes (CBC) 1.5 K/uL (0.7-4.9); Basophils % 0.7 % (0-1.3); Hematocrit 27.9 % (39.6-49.0); Lymphocytes % 18.6 % (15.3-44.8); MPV 11.1 fL (7.6-11.3); RBC Red Blood Cell Count 3.68 M/uL (4.33-5.43)
[2021-04-07 06:23] LABS: Uric Acid 5.2 mg/dL (3.5-7.2)
[2021-04-07 06:25] LABS: Potassium 5.8 mmol/L (3.5-5.1)
[2021-04-07] MEDS: INSULIN -REGULAR HUMAN 50 UNIT/0.5 ML ML SQ SCH ×4 (07:30→20:41)
[2021-04-07] MEDS: METOPROLOL TAR 50 MG TAB FT SCH (07:44)
[2021-04-07] MEDS ORDERED: SOD POLYSTYREN SUL 15 GM/60 ML UCUP PO ONE (07:53)
[2021-04-07] MEDS ORDERED: NA CHLORIDE 0.9% 250 ML IV PRN (07:53)
[2021-04-07] MEDS ORDERED: FUROSEMIDE 40 MG/4 ML VIAL IV ONE (07:53)
[2021-04-07] MEDS ORDERED: CALCIUM GLUC 10% INJ 9.3 MEQ in NA CHLORIDE 0.9% 100 ML IV ONE (07:53)
[2021-04-07] MEDS: NEPRO 1,000 ML BOT FT SCH ×4 (08:00→20:42)
[2021-04-07] MEDS: SUCRALFATE 1GM/10ML UCUP FT SCH ×4 (08:00→20:38)
[2021-04-07] MEDS: AMOX/K CLAV 875 MG TAB PO SCH ×2 (08:33→20:38)
[2021-04-07] MEDS: FLUCONAZOLE 100 MG TAB PO SCH (08:33)
[2021-04-07] MEDS: ESCITALOPRAM 20 MG TAB FT SCH (08:34)
[2021-04-07] MEDS: HEPARIN 5000 UNIT/ML 1 ML VIAL SQ SCH ×2 (08:34→20:40)
[2021-04-07] MEDS: AMLODIPINE 10 MG TAB FT SCH (08:35)
[2021-04-07] MEDS: GABAPENTIN 300 MG CAP FT SCH ×2 (08:35→20:37)
[2021-04-07] MEDS: CLOPIDOGREL 75 MG TABLET FT SCH (08:36)
[2021-04-07] MEDS: SENOSIDES 8.6 MG TAB PO SCH ×2 (08:36→20:37)
[2021-04-07] MEDS: PANTOPRAZOLE 40MG TABLET PO SCH (08:36)
--- NOTE | 2021-04-07 11:23 | P.PN ---
Subjective Date of Service: 04/07/21 Chief Complaint: Generalized weakness, UTI No issues overnight. Patient have had multiple bowel movements. Spouse reports total of 7 BM yesterday. Had 1 BM this morning. Hyperkalemia persist. Serum creatinine is trending up. Physical Examination - Vital Signs Temperature: 97.9 F Blood Pressure: 132/60 Pulse: 44 Respirations: 18 Pulse Ox (%): 96 - Physical Exam General: Alert, In no apparent distress, Oriented x3 HEENT: Mucous membr. moist/pink Neck: JVD not distended Respiratory: Clear to auscultation bilaterally, Normal air movement Cardiovascular: No edema, Normal S1 S2, Other (Bradycardic), Irregular heart rate/rhythm Gastrointestinal: Soft and benign, Non-distended, Other (PEG tube) Musculoskeletal: No swelling Integumentary: No rashes Neurological: Other (No focal motor deficit.) Urinary: Hernandez catheter Assessment And Plan Physician Review: Patient Assessed, Agree with Above Assessment and Plan Physician Review Additional Text: Physical exam GEN: Alert, orientedx2, NAD HEENT: Normal conjunctiva, sclera anicteric. CV: Irregular rate and rhythm, no edema Pulm: Nonlabored respiration on room air, clear to auscultation bilaterally ABD: Soft, nontender, nondistended, PEG Tube in place, minimal erythema, no purulent drainage Neuro: Normal speech, normal affect Skin: Superficial skin tear noted to lateral thigh Genitourinary: Hernandez catheter. Mild penile swelling. Problem List acute cystitis Acute hypoxemic respiratory failure secondary to acute on chronic diastolic CHF acute metabolic encephalopathy secondary to UTI bradycardia Diabetes mellitus type 2, non-insulin dependent h/o PEG tube s/p aspiration pneumonia Anemia of chronic disease with iron deficiency Chronic Hernandez catheter with history of urinary retention, recurrent UTIs History of CAD with previous CABG Hypertension Hyperlipidemia Anemia - appears to be at baseline. SP 2 units PRBC transfusion. Hemoglobin is stable between 9 and 10. Low MCV but percentage iron saturation of 30% Acute on Chronic diastolic CHF. Holding Lasix today due to rise in serum creatinine. Patient is getting dehydrated. Daily weight and strict I\O. Nephro logy started free water flushes via GT. Patient given 250 mL normal saline bolus today ID consulted given recurrent infections. acute cystitis with indwelling hernandez and possible LLL pneumonia. Urine culture is growing Serratia and yeast. Leukocytosis resolved. Blood cultures: No growth. No fever for several days. Antibiotics switched to oral Augmentin. Continue Diflucan. DM2. BS monitoring with sliding scale insulin. PEG tube in place. h/o aspiration pneumonia in the past. states he has been doing well with regular food, sees speech therapy at home-no full consistency restrictions. Patient tolerating food without any issues. Spouse request for PEG tube to changed since it clogs easily. Dr. Modi is not available this week to change his PEG tube. Constipation resolved. The patient has diarrhea. Discontinued lactulose. Continue senna. MiraLax p.r.n. Iron deficiency anemia - continue ferrous sulfate. Hx of Urinary retention. Continue hernandez care Hx of Chronic UTI. On antibiotics and Diflucan. Hx of CAD and CABG: Holding metoprolol due to bradycardia and junctional rhythm. Cardiology Consult Hypertension: Patient currently normotensive. Holding metoprolol due to bradycardia. Continue doxazosin Hyperlipidemia: Continue statin. Sore throat: Secondary to dryness in the pharynx. Keep mouth and pharynx wet. Hyperkalemia: Nephrology consulted to assist with management. Hyperkalemia could be related to dehydration. Patient given Kayexalate yesterday. Changed feeding formula to Nepro with low K. nephrology input appreciated. Free water flushes. Patient given 250 ml NS bolus Monitor renal function. Follow potassium level. DVT prophylaxis with heparin sub
--- NOTE | 2021-04-07 11:24 | P.PN ---
Subjective Date of Service: 04/07/21 Chief Complaint: Generalized weakness, UTI Patient seen examined at bedside, feeling well. Review of Systems 10-point ROS is otherwise unremarkable Physical Examination - Vital Signs Temperature: 97.9 F Blood Pressure: 132/60 Pulse: 44 Respirations: 18 Pulse Ox (%): 96 Assessment And Plan - Plan Physical EXam: General: Alert, In no apparent distress, Cachectic HEENT: Atraumatic, Normocephalic Neck: Supple, 2+ carotid pulse no bruit Respiratory: Clear to auscultation bilaterally, Normal air movement Cardiovascular: No edema, Regular rate/rhythm Gastrointestinal: Normal bowel sounds, Other (PEG tube. Insertion site with slight erythema) Musculoskeletal: No swelling, No contractures Integumentary: No rashes, No breakdown, No significant lesion, Other (Superficial skin tear noted to left lateral thigh) Conclusions/Impression: Antibiotics: Meropenem Start: 04/02 Stop: 04/05 Augmentin Start: 04/05 Stop: 04/09 Assessment/plan Recurrent urinary tract infection Patient was recently treated for a UTI with a 10 day course of a cephalosporin. Urine culture growing Serratia sensitive to Augmentin, patient started on renally dosed Augmentin. Continue until 04/09. Urinary analysis grew yeast, continue 14 day course of oral Diflucan. Possible left lower lobe pneumonia CT chest showed a left lower lobe opacity, meropenem started due to concern for possible aspiration pneumonia any for anaerobic coverage. Patient switched to Augmentin, still has anaerobic coverage. Leukocytosis with left shift Continuing broad-spectrum IV antibiotic. Continue to monitor and watch fever curve. Diabetes, CKD stage 3, CVA Medical management per primary team Plan of care discussed Dr. Ortega Thank you for consultation Physician Review: Patient Assessed, Agree with Above Assessment and Plan
--- NOTE | 2021-04-07 13:42 | CON ---
Date of Consultation: 04/07/2021 Reason For Consultation: Bradycardia and junctional rhythm. History Of Present Illness: This is an elderly gentleman who was bedbound and is being admitted for UTI, change of mental status and fluid retention. He has a history of diastolic heart failure, diabe enriqueta, CKD, CVA. At the present time, he is asymptomatic. Does not have any dizziness. No chest pain . No shortness of breath. Past Medical History: As outlined above in the HPI. Medications: Refer reconciliation for detailed list. Allergies: SPIRONOLACTONE. Family History: No premature coronary disease or cancer. Social History: Does not smoke or drink. Does not use any drugs. Review of Systems: All systems reviewed and they were negative except mentioned in the HPI. Physical Examination: Vital Signs: Temperature is 97.9, pulse is 44, breathing at 18, blood pressure is 132/60, satting 96 %. General: Pleasant, middle-aged male, in no apparent distress. Head and Neck: Pupils are equal, reactive to light. Intact eye movements. No JVD. No cervical lym phadenopathy. Neck: Supple. Thyroid is not enlarged. Lungs: Clear to auscultation bilaterally. No rhonchi, rales, or crackles. No accessory muscle use. Heart: Regular rate and rhythm and bradycardic. Abdomen: Soft, nontender. Bowel sounds positive. No organomegaly. No masses or hernia. No rigidi ty or rebound. Extremities: No clubbing, cyanosis. Intact pulses. Skin: No rashes. Neurologic: Alert, awake, oriented x3. No focal deficits appreciated. Lymph nodes: No cervical or axillary lymphadenopathy. Investigations: Creatinine 1.48, potassium is 5.3, hemoglobin is 9.1. Troponin less than 0.02. Assessment And Recommendations: 1.Bradycardia with occasional junctional rhythm. The patient was on 100 mg of Toprol with history o f kidney dysfunction. Recommend to DC it and keep monitoring on telemetry. Please obtain echocardio gram and repeat one more troponin. 2.Known history of coronary artery disease with sinus bradycardia alternating with junctional rhythm . Obtain troponin and please obtain an echocardiogram. Thank you for the consult. /ERLIN Voice ID: [id number] Report ID: [id number]
[2021-04-07 13:55] LABS: Potassium 5.2 mmol/L (3.5-5.1)
[2021-04-07] MEDS: TRAZODONE 150 MG TAB FT SCH (20:00)
[2021-04-07] MEDS: DOXAZOSIN 2 MG TAB FT SCH (20:00)
[2021-04-07] MEDS: ATORVASTATIN 80 MG TAB FT SCH (20:36)
[2021-04-07] MEDS: ASPIRIN EC 81 MG TAB PO SCH (20:36)
--- NOTE | 2021-04-07 21:28 | P.PN ---
Date of Service: 04/07/21 Vital Signs Temp Pulse Resp BP Pulse Ox 97.3 F 47 L 16 133/51 L 99 04/07/21 20:00 04/07/21 20:00 04/07/21 20:00 04/07/21 20:00 04/07/21 20:00 Medications Acetaminophen (Acetaminophen 500 Mg Tab) 500 mg PO Q4HP PRN PRN Reason: TEMP > 100' F Last Admin: 04/07/21 00:59 Dose: 500 mg Documented by: Amlodipine Besylate (Amlodipine 10 Mg Tab) 10 mg FT 08 [facility] Last Admin: 04/07/21 08:35 Dose: 10 mg Documented by: Amoxicillin/Clavulanate Potassium (Amox/K Clav 875 Mg Tab) 875 mg PO 799,1999 [facility] Stop: 04/19/21 08:01 Last Admin: 04/07/21 20:38 Dose: 875 mg Documented by: Aspirin (Aspirin Ec 81 Mg Tab) 81 mg PO 1999 [facility] Last Admin: 04/07/21 20:36 Dose: 81 mg Documented by: Atorvastatin Calcium (Atorvastatin 80 Mg Tab) 80 mg FT 1999 [facility] Last Admin: 04/07/21 20:36 Dose: 80 mg Documented by: Clopidogrel Bisulfate (Clopidogrel 75 Mg Tablet) 75 mg FT 799 [facility] Last Admin: 04/07/21 08:36 Dose: 75 mg Documented by: Dextrose (D50w 25 Gm/50 Ml Syringe) 12.5 gm IV PRN PRN; Protocol PRN Reason: HYPOGLYCEMIA Doxazosin Mesylate (Doxazosin 2 Mg Tab) 2 mg FT 1999 [facility] Last Admin: 04/06/21 20:26 Dose: 2 mg Documented by: Enteral Nutritional Formula (Nepro 1,000 Ml Bot) 350 ml FT 0800,1200,1600,2000 [facility] Last Admin: 04/07/21 20:42 Dose: 350 ml Documented by: Escitalopram Oxalate (Escitalopram 20 Mg Tab) 30 mg FT 08 [facility] Last Admin: 04/07/21 08:34 Dose: 30 mg Documented by: Ferrous Sulfate (Ferrous Sulfate 220 Mg/5 Ml Elixir) 220 mg FT 0800,1400,2000 [facility] Last Admin: 04/07/21 20:36 Dose: 220 mg Documented by: Fluconazole (Fluconazole 100 Mg Tab) 200 mg PO 0800 [facility] Stop: 04/19/21 08:01 Last Admin: 04/07/21 08:33 Dose: 200 mg Documented by: Gabapentin (Gabapentin 300 Mg Cap) 300 mg FT [facility] Last Admin: 04/07/21 20:37 Dose: 300 mg Documented by: Glucagon (Glucagon 1 Mg/Vial) 1 mg IM 1X PRN; Protocol PRN Reason: HYPOGLYCEMIA Heparin Sodium (Porcine) (Heparin 5000 Unit/Ml 1 Ml Vial) 5,000 unit SQ [facility] Last Admin: 04/07/21 20:40 Dose: 5,000 unit Documented by: Sodium Chloride (Sodium Chloride) 250 mls @ 999 mls/hr IV Q15M PRN PRN Reason: HYPOTENSION Insulin Human Regular (Insulin -Regular Human 50 Unit/0.5 Ml Ml) 0 unit SQ ACHS [facility]; Protocol Last Admin: 04/07/21 20:41 Dose: 3 unit Documented by: Ondansetron HCl (Ondansetron 4 Mg/2 Ml Vial) 4 mg IV Q6HP PRN PRN Reason: NAUSEA / VOMITING Pantoprazole Sodium (Pantoprazole 40mg Tablet) 40 mg PO 08 [facility]; Protocol Last Admin: 04/07/21 08:36 Dose: 40 mg Documented by: Polyethylene Glycol (Polyethyl Gly 3350 17 Gm/Dose) 17 gm PO DAILY PRN PRN Reason: CONSTIPATION Senna (Senosides 8.6 Mg Tab) 17.2 mg PO 799,1999 [facility] Last Admin: 04/07/21 20:37 Dose: 17.2 mg Documented by: Sodium Chloride (Flush Normal Saline 10 Ml) 10 ml IV [facility] Last Admin: 04/07/21 20:43 Dose: 10 ml Documented by: Sucralfate (Sucralfate 1gm/10ml Ucup) 0.1 gm FT 0800,1200,1600,1999 [facility] Last Admin: 04/07/21 20:38 Dose: 0.1 gm Documented by: Trazodone HCl (Trazodone 150 Mg Tab) 150 mg FT 1999 [facility] Last Admin: 04/07/21 20:00 Dose: 150 mg Documented by: Microbiology Results 04/02/21 15:20 Blood - Blood Aerobic Blood Culture - Final No growth in 5 days. 04/02/21 15:20 Blood - Blood Anaerobic Blood Culture - Final No growth in 5 days. 04/02/21 15:35 Blood - Blood Aerobic Blood Culture - Final No growth in 5 days. 04/02/21 15:35 Blood - Blood Anaerobic Blood Culture - Final No growth in 5 days. 04/02/21 12:47 Clean Catch Urine Pipestem Count - Final >100,000 CFU/ML. 04/02/21 12:47 Clean Catch Urine - Final Serratia Marcescens Gram Neg Keenan 04/02/21 15:21 Stool Occult Blood - Final Assessment/ Plan: Nephrology Progress Note Good urine output. Refusing kayexalate. No chest pain or dyspnea No acute events overnight Vitals, medications blood work and imaging reviewed in the chart General: In no apparent distress, Cooperative Neck: Supple Respiratory: Clear to auscultation bilaterally Cardiovascular: No edema, Regular rate/rhythm Gastrointestinal: Soft and benign, Non-distended Musculoskeletal: No clubbing, No contractures Integumentary: No rashes, No cyanosis Neurological: Normal speech Blood work reviewed in the chart. Imagings Data: EXAM DESCRIPTION: CT - Chest Abd Pelvis Wo Con - 04/02/2021 3:09 pm CLINICAL HISTORY: Cough and abdominal pain COMPARISON: October 2020 TECHNIQUE: Computed axial tomography of the chest, abdomen and pelvis was obtained. Oral contrast was given. IV contrast was not requested. All CT scans are performed using dose optimization technique as appropriate and may include automated exposure control or mA/KV adjustment according to patient size. FINDINGS: The evaluation of mediastinum, tiffany, vessels and solid organs is limited secondary to the lack of IV contrast administration No mediastinal or hilar lymphadenopathy is seen. Minimal bilateral pleural effusions. A pericardial effusion is not seen. Mild left lower lobe opacities with small area of atelectasis. The liver, spleen, pancreas, adrenals and kidneys appear grossly bri Percutaneous tube within the stomach. There is no evidence of diverticulitis. A moderate amount of stool throughout colon. Cholelithiasis Compression fractures involving T12 and L3 unchanged Holcomb catheter within the bladder IMPRESSION: Mild left lower lobe opacities probably mild pneumonia. Mild left lower lobe atelectasis Cholelithiasis Moderate amount stool within the colon EXAM DESCRIPTION: Roger Single View04/02/2021 12:24 pm CLINICAL HISTORY: Cough COMPARISON: February 2021 FINDINGS: Mild bilateral pulmonary opacities. Heart is mildly enlarged. Postsurgical changes involve the chest Eventration left hemidiaphragm IMPRESSION: Mild bilateral pulmonary opacities probably interstitial pulmonary edema Conclusions/Impression: OSCAR likely due to hypovolemia CKD III with proteinuria -No NSAIDs -Give a liter 1/2NS Hyperkalemia -Kayexalate declined -Low potassium diet -Continue Nepro TF -Continue Lasix PRN HTN with CKD/ CHF -Continue Amlodipine Diastolic CHF, chronic -Low sodium diet DM II with CKD & Hyperglycemia -RISS Moderate malnutrition -Maintain nutrition -Continue Nepro Anemia in chronic illness -Monitor H&H -Transfuse PRBC as needed A/C cystitis -Continue Augmentin
[2021-04-07] MEDS ORDERED: NACHLORIDE 0.45% 1,000 ML IV SCH (22:00)
[2021-04-08 06:28] LABS: Absolute Lymphocytes (CBC) 1.3 K/uL (0.7-4.9); Basophils % 0.5 % (0-1.3); Hematocrit 27.2 % (39.6-49.0); Lymphocytes % 15.7 % (15.3-44.8); MPV 11.2 fL (7.6-11.3); RBC Red Blood Cell Count 3.53 M/uL (4.33-5.43)
[2021-04-08 06:31] LABS: Potassium 5.3 mmol/L (3.5-5.1)
[2021-04-08 07:17] LABS: Urine Appearance CLEAR (Clear); Urine Bilirubin NEGATIVE (Negative); Urine Blood 3+ (Negative); Urine Color YELLOW (Yellow); Urine Glucose NEGATIVE (Negative); Urine Protein 3+ (Negative); Urine Urobilinogen 0.2 mg/dL (0.2-1.0)
[2021-04-08] MEDS: INSULIN -REGULAR HUMAN 50 UNIT/0.5 ML ML SQ SCH ×4 (07:30→20:24)
[2021-04-08] MEDS: NEPRO 1,000 ML BOT FT SCH ×4 (08:00→20:26)
[2021-04-08 08:04] LABS: Urine Bacteria <20 /HPF (NONE SEEN); Urine RBC <5 /HPF (NONE SEEN); Urine Yeast MANY (NONE SEEN)
[2021-04-08] MEDS: PANTOPRAZOLE 40MG TABLET PO SCH (08:44)
[2021-04-08] MEDS: SENOSIDES 8.6 MG TAB PO SCH ×2 (08:44→20:20)
[2021-04-08] MEDS: AMOX/K CLAV 875 MG TAB PO SCH ×2 (08:44→20:19)
[2021-04-08] MEDS: ESCITALOPRAM 20 MG TAB FT SCH (08:45)
[2021-04-08] MEDS: GABAPENTIN 300 MG CAP FT SCH ×2 (08:45→20:20)
[2021-04-08] MEDS: FLUCONAZOLE 100 MG TAB PO SCH (08:46)
[2021-04-08] MEDS: AMLODIPINE 10 MG TAB FT SCH (08:46)
[2021-04-08] MEDS: CLOPIDOGREL 75 MG TABLET FT SCH (08:46)
[2021-04-08] MEDS: SUCRALFATE 1GM/10ML UCUP FT SCH ×4 (08:47→20:22)
[2021-04-08 08:49] LABS: Platelet Estimate DECR; White Blood Cell Scan OK (OK)
[2021-04-08 08:50] LABS: Anisocytosis 1+; Blood Morphology Comment NOTED (NOT SEEN); Teardrop Cell 1+
[2021-04-08] MEDS: HEPARIN 5000 UNIT/ML 1 ML VIAL SQ SCH ×2 (08:56→20:23)
--- NOTE | 2021-04-08 14:10 | P.PN ---
Subjective Date of Service: 04/08/21 Chief Complaint: Generalized weakness, UTI No issues overnight. Spouse report a total of 4 BM yesterday. Diarrhea frequency has decreased. Hyperkalemia persist. Serum creatinine has plateaued. He has no complain today Physical Examination - Vital Signs Temperature: 98.7 F Blood Pressure: 140/55 Pulse: 44 Respirations: 15 Pulse Ox (%): 97 - Physical Exam General: Alert, In no apparent distress HEENT: Mucous membr. moist/pink Neck: JVD not distended Respiratory: Clear to auscultation bilaterally, Normal air movement Cardiovascular: No edema, Normal S1 S2, Other (Bradycardic), Irregular heart rate/rhythm Gastrointestinal: Soft and benign, Non-distended, No tenderness Musculoskeletal: No swelling Integumentary: No rashes Neurological: Other (No focal motor deficit.) Urinary: Hernandez catheter - Studies Microbiology Data (last 24 hrs): 04/02/21 15:20 Blood - Blood Aerobic Blood Culture - Final No growth in 5 days. 04/02/21 15:20 Blood - Blood Anaerobic Blood Culture - Final No growth in 5 days. 04/02/21 15:35 Blood - Blood Aerobic Blood Culture - Final No growth in 5 days. 04/02/21 15:35 Blood - Blood Anaerobic Blood Culture - Final No growth in 5 days. Assessment And Plan Physician Review: Patient Assessed, Agree with Above Assessment and Plan Physician Review Additional Text: Physical exam GEN: Alert, orientedx2, NAD HEENT: Normal conjunctiva, sclera anicteric. CV: Irregular rate and rhythm, no edema Pulm: Nonlabored respiration on room air, clear to auscultation bilaterally ABD: Soft, nontender, nondistended, PEG Tube in place, no purulent drainage Neuro: Normal speech, normal affect Skin: Superficial skin tear noted to lateral thigh Genitourinary: Hernandez catheter. Penile swelling resolved. Problem List acute cystitis Acute hypoxemic respiratory failure secondary to acute on chronic diastolic CHF acute metabolic encephalopathy secondary to UTI bradycardia Diabetes mellitus type 2, non-insulin dependent h/o PEG tube s/p aspiration pneumonia Anemia of chronic disease with iron deficiency Chronic Hernandez catheter with history of urinary retention, recurrent UTIs History of CAD with previous CABG Hypertension Hyperlipidemia Anemia - appears to be at baseline. SP 2 units PRBC transfusion. Hemoglobin is stable between 9 and 10. Low MCV but percentage iron saturation of 30% Acute on Chronic diastolic CHF. Holding Lasix today due to rise in serum creatinine. Patient is dehydrated. High serum osmolality. Daily weight and strict I\O. Nephrology started free water flushes via GT. Patient given 250 mL normal saline bolus. Continue water flushes. ID consulted given recurrent infections. acute cystitis with indwelling hernandez and possible LLL pneumonia. Urine culture is grew Serratia and yeast. Leukocytosis resolved. Blood cultures: No growth. No fever for several days. Antibiotics switched to oral Augmentin. Continue Diflucan. DM2. BS monitoring with sliding scale insulin. PEG tube in place. h/o aspiration pneumonia in the past. states he has been doing well with regular food, sees speech therapy at home-no full consistency restrictions. Patient tolerating food without any issues. Spouse request for PEG tube to changed since it clogs easily. Dr. Modi is not available this week to change his PEG tube. May be done as an outpatient. Constipation resolved. The patient has diarrhea. Discontinued lactulose. Continue senna. MiraLax p.r.n. Iron deficiency anemia - no longer iron deficient. Iron replacement may be contributing to the constipation. Hold iron therapy briefly. Hx of Urinary retention. Continue hernandez care Hx of CAD and CABG: Holding metoprolol due to bradycardia and junctional rhythm. Cardiology input appreciated. Troponin is negative. Echocardiogram to be done on Saturday. Hypertension: Patient currently normotensive. Holding metoprolol due to bradycardia. Continue doxazosin and amlodipine Hyperlipidemia: Continue statin. Sore throat: Secondary to dryness in the pharynx. Keep mouth and pharynx wet. Hyperkalemia: Seen by nephrology. Hyperkalemia could be related to dehydration. Status post Kayexalate Changed feeding formula to Nepro with low K. continue free water flushes. IV normal saline bolus p.r.n. cautioned not to overload patient. Monitor renal function. Follow potassium level. DVT prophylaxis with heparin sub
[2021-04-08] MEDS: ACETAMINOPHEN 500 MG TAB PO PRN ×2 (16:13→20:36)
[2021-04-08] MEDS ORDERED: ALBUTEROL 2.5 MG/3 ML NEB SOL NEB ONE (17:10)
[2021-04-08] MEDS ORDERED: NACHLORIDE 0.45% 1,000 ML IV SCH (18:00)
[2021-04-08] MEDS: ASPIRIN EC 81 MG TAB PO SCH (20:19)
[2021-04-08] MEDS: ATORVASTATIN 80 MG TAB FT SCH (20:19)
[2021-04-08] MEDS: TRAZODONE 150 MG TAB FT SCH (20:20)
[2021-04-08] MEDS: DOXAZOSIN 2 MG TAB FT SCH (20:22)
--- NOTE | 2021-04-08 20:39 | P.PN ---
Date of Service: 04/08/21 Vital Signs Temp Pulse Resp BP Pulse Ox 98.5 F 70 17 109/53 L 97 04/08/21 16:00 04/08/21 20:22 04/08/21 16:00 04/08/21 20:22 04/08/21 16:00 Medications Acetaminophen (Acetaminophen 500 Mg Tab) 500 mg PO Q4HP PRN PRN Reason: TEMP > 100' F Last Admin: 04/08/21 16:13 Dose: 500 mg Documented by: Albuterol Sulfate (Albuterol 2.5 Mg/3 Ml Neb [place]) 2.5 mg NEB Q6H PRN PRN Reason: SHORTNESS OF BREATH Amlodipine Besylate (Amlodipine 10 Mg Tab) 10 mg FT 0800 [facility] Last Admin: 04/08/21 08:46 Dose: 10 mg Documented by: Amoxicillin/Clavulanate Potassium (Amox/K Clav 875 Mg Tab) 875 mg PO 0800,1999 [facility] Stop: 04/19/21 08:01 Last Admin: 04/08/21 20:19 Dose: 875 mg Documented by: Aspirin (Aspirin Ec 81 Mg Tab) 81 mg PO 1999 [facility] Last Admin: 04/08/21 20:19 Dose: 81 mg Documented by: Atorvastatin Calcium (Atorvastatin 80 Mg Tab) 80 mg FT 1999 [facility] Last Admin: 04/08/21 20:19 Dose: 80 mg Documented by: Chlorthalidone (Chlorthalidone 25 Mg Tab) 25 mg FT 1X ONE Stop: 04/09/21 17:16 Clopidogrel Bisulfate (Clopidogrel 75 Mg Tablet) 75 mg FT 0800 [facility] Last Admin: 04/08/21 08:46 Dose: 75 mg Documented by: Dextrose (D50w 25 Gm/50 Ml Syringe) 12.5 gm IV PRN PRN; Protocol PRN Reason: HYPOGLYCEMIA Doxazosin Mesylate (Doxazosin 2 Mg Tab) 2 mg FT 1999 [facility] Last Admin: 04/08/21 20:22 Dose: 2 mg Documented by: Enteral Nutritional Formula (Nepro 1,000 Ml Bot) 350 ml FT 0800,1200,1600,1999 [facility] Last Admin: 04/08/21 20:26 Dose: 350 ml Documented by: Escitalopram Oxalate (Escitalopram 20 Mg Tab) 30 mg FT 0800 [facility] Last Admin: 04/08/21 08:45 Dose: 30 mg Documented by: Fluconazole (Fluconazole 100 Mg Tab) 200 mg PO 0800 [facility] Stop: 04/19/21 08:01 Last Admin: 04/08/21 08:46 Dose: 200 mg Documented by: Furosemide (Furosemide 20 Mg/ 2ml Vial) 20 mg IV 1X ONE Stop: 04/09/21 00:02 Gabapentin (Gabapentin 300 Mg Cap) 300 mg FT 08 [facility] Last Admin: 04/08/21 20:20 Dose: 300 mg Documented by: Glucagon (Glucagon 1 Mg/Vial) 1 mg IM 1X PRN; Protocol PRN Reason: HYPOGLYCEMIA Heparin Sodium (Porcine) (Heparin 5000 Unit/Ml 1 Ml Vial) 5,000 unit SQ 799,1999 [facility] Last Admin: 04/08/21 20:23 Dose: 5,000 unit Documented by: Sodium Chloride (Sodium Chloride) 250 mls @ 999 mls/hr IV Q15M PRN PRN Reason: HYPOTENSION Sodium Chloride (Sodium Chloride 0.45%) 1,000 mls @ 150 mls/hr IV .Q6H40M [facility] Insulin Human Regular (Insulin -Regular Human 50 Unit/0.5 Ml Ml) 0 unit SQ ACHS [facility]; Protocol Last Admin: 04/08/21 20:24 Dose: 5 unit Documented by: Ondansetron HCl (Ondansetron 4 Mg/2 Ml Vial) 4 mg IV Q6HP PRN PRN Reason: NAUSEA / VOMITING Pantoprazole Sodium (Pantoprazole 40mg Tablet) 40 mg PO 0800 [facility]; Protocol Last Admin: 04/08/21 08:44 Dose: 40 mg Documented by: Polyethylene Glycol (Polyethyl Gly 3350 17 Gm/Dose) 17 gm PO DAILY PRN PRN Reason: CONSTIPATION Senna (Senosides 8.6 Mg Tab) 17.2 mg PO 799,1999 [facility] Last Admin: 04/08/21 20:20 Dose: 17.2 mg Documented by: Sodium Chloride (Flush Normal Saline 10 Ml) 10 ml IV 799,1999 [facility] Last Admin: 04/08/21 20:26 Dose: 10 ml Documented by: Sucralfate (Sucralfate 1gm/10ml Ucup) 0.1 gm FT 0800,1200,1600,1999 [facility] Last Admin: 04/08/21 20:22 Dose: 0.1 gm Documented by: Trazodone HCl (Trazodone 150 Mg Tab) 150 mg FT 1999 [facility] Last Admin: 04/08/21 20:20 Dose: 150 mg Documented by: Microbiology Results 04/02/21 15:20 Blood - Blood Aerobic Blood Culture - Final No growth in 5 days. 04/02/21 15:20 Blood - Blood Anaerobic Blood Culture - Final No growth in 5 days. 04/02/21 15:35 Blood - Blood Aerobic Blood Culture - Final No growth in 5 days. 04/02/21 15:35 Blood - Blood Anaerobic Blood Culture - Final No growth in 5 days. 04/02/21 12:47 Clean Catch Urine [place] Count - Final >100,000 CFU/ML. 04/02/21 12:47 Clean Catch Urine - Final Serratia Marcescens Gram Neg Keenan 04/02/21 15:21 Stool Occult Blood - Final Assessment/ Plan: Nephrology Progress Note Good urine output Refusing kayexalate due to diarrhea No chest pain or dyspnea is requesting neb treatments due to cough/ sputum No acute events overnight Vitals, medications blood work and imaging reviewed in the chart General: In no apparent distress, Cooperative Neck: Supple Respiratory: Clear to auscultation bilaterally Cardiovascular: No edema, Regular rate/rhythm Gastrointestinal: Soft and benign, Non-distended Musculoskeletal: No clubbing, No contractures Integumentary: No rashes, No cyanosis Neurological: Normal speech Blood work reviewed in the chart. Imagings Data: EXAM DESCRIPTION: CT - Chest Abd Pelvis Wo Con - 04/02/2021 3:09 pm CLINICAL HISTORY: Cough and abdominal pain COMPARISON: October 2020 TECHNIQUE: Computed axial tomography of the chest, abdomen and pelvis was obtained. Oral contrast was given. IV contrast was not requested. All CT scans are performed using dose optimization technique as appropriate and may include automated exposure control or mA/KV adjustment according to patient size. FINDINGS: The evaluation of mediastinum, tiffany, vessels and solid organs is limited secondary to the lack of IV contrast administration No mediastinal or hilar lymphadenopathy is seen. Minimal bilateral pleural effusions. A pericardial effusion is not seen. Mild left lower lobe opacities with small area of atelectasis. The liver, spleen, pancreas, adrenals and kidneys appear grossly bri Percutaneous tube within the stomach. There is no evidence of diverticulitis. A moderate amount of stool throughout colon. Cholelithiasis Compression fractures involving T12 and L3 unchanged Holcomb catheter within the bladder IMPRESSION: Mild left lower lobe opacities probably mild pneumonia. Mild left lower lobe atelectasis Cholelithiasis Moderate amount stool within the colon EXAM DESCRIPTION: Roger Single View04/02/2021 12:24 pm CLINICAL HISTORY: Cough COMPARISON: February 2021 FINDINGS: Mild bilateral pulmonary opacities. Heart is mildly enlarged. Postsurgical changes involve the chest Eventration left hemidiaphragm IMPRESSION: Mild bilateral pulmonary opacities probably interstitial pulmonary edema Conclusions/Impression: OSCAR likely due to hypovolemia CKD III with proteinuria -No NSAIDs -Increase IVF Hyperkalemia -Kayexalate declined -Low potassium diet -Continue Nepro TF -Diuretics ordered HTN with CKD/ CHF -Continue Amlodipine Diastolic CHF, chronic -Low sodium diet -CXR in the AM DM II with CKD & Hyperglycemia -RISS Moderate malnutrition -Maintain nutrition -Continue Nepro Anemia in chronic illness -Monitor H&H -Transfuse PRBC as needed A/C cystitis -Continue Augmentin
[2021-04-08] MEDS: NACHLORIDE 0.45% 1,000 ML IV SCH (23:47)
[2021-04-09] MEDS ORDERED: FUROSEMIDE 20 MG/ 2ML VIAL IV ONE ×2 (00:01→08:32)
[2021-04-09 05:10] LABS: Absolute Lymphocytes (CBC) 1.2 K/uL (0.7-4.9); Basophils % 0.9 % (0-1.3); Hematocrit 25.7 % (39.6-49.0); Lymphocytes % 15.1 % (15.3-44.8); MPV 10.5 fL (7.6-11.3); RBC Red Blood Cell Count 3.44 M/uL (4.33-5.43)
[2021-04-09 05:39] LABS: Albumin 2.4 g/dL (3.4-5.0); Bilirubin Direct 0.1 mg/dL (0-0.2); Bilirubin Total 0.3 mg/dL (0.2-1.0); Magnesium 2.9 mg/dL (1.8-2.4); Phosphorus 4.4 mg/dL (2.5-4.9); Protein, Total 5.9 g/dL (6.4-8.2); Thyroid Stimulating Hormone 1.62 uIU/mL (0.360-3.740); Uric Acid 4.8 mg/dL (3.5-7.2)
[2021-04-09] MEDS: INSULIN -REGULAR HUMAN 50 UNIT/0.5 ML ML SQ SCH ×4 (07:30→21:00)
--- NOTE | 2021-04-09 07:54 | RAD REPORT ---
EXAM DESCRIPTION: RAD - Chest Single View - 04/09/2021 6:17 am CLINICAL HISTORY: CHF. Cough with sputum. COMPARISON: April 02 portable chest, April 02 CT chest TECHNIQUE: AP portable chest image was obtained 04/09/2021 6:17 am . FINDINGS: Interstitial infiltrate or edema pattern is present. Lung parenchymal opacification is sli ghtly worse in each base. This is in part due to a more shallow inspiratory effort. Upper lung field pattern is not substantially different. Sternotomy wires are in place. Trachea is midline. Cardiomegaly is present with upper lobe vasculatur e normal range for portable imaging. No pneumothorax is present. Small bilateral pleural effusions ar e evident. No acute bony abnormality seen. No acute aortic findings suspected. IMPRESSION: Worsening bibasilar lung parenchymal opacification may be due to artifact from a more sh allow inspiratory effort rather than true worsening of failure/ volume overload. Patient can be monit ored with repeat imaging as warranted. Stable cardiomegaly.
[2021-04-09] MEDS: NACHLORIDE 0.45% 1,000 ML IV SCH ×4 (07:56→22:05)
[2021-04-09] MEDS: AMOX/K CLAV 875 MG TAB PO SCH ×2 (07:57→20:05)
[2021-04-09] MEDS: SENOSIDES 8.6 MG TAB PO SCH ×2 (07:57→20:06)
[2021-04-09] MEDS: PANTOPRAZOLE 40MG TABLET PO SCH (07:58)
[2021-04-09] MEDS: GABAPENTIN 300 MG CAP FT SCH ×2 (07:58→20:08)
[2021-04-09] MEDS: ESCITALOPRAM 20 MG TAB FT SCH (07:58)
[2021-04-09] MEDS: FLUCONAZOLE 100 MG TAB PO SCH (07:58)
[2021-04-09] MEDS: SUCRALFATE 1GM/10ML UCUP FT SCH ×4 (07:59→20:00)
[2021-04-09] MEDS: CLOPIDOGREL 75 MG TABLET FT SCH (07:59)
[2021-04-09] MEDS: HEPARIN 5000 UNIT/ML 1 ML VIAL SQ SCH ×2 (07:59→20:08)
[2021-04-09] MEDS: AMLODIPINE 10 MG TAB FT SCH (07:59)
[2021-04-09] MEDS: NEPRO 1,000 ML BOT FT SCH ×4 (08:13→20:00)
[2021-04-09] MEDS: ACETAMINOPHEN 500 MG TAB PO PRN ×2 (08:14→20:03)
[2021-04-09] MEDS ORDERED: SOD POLYSTYREN SUL 15 GM/60 ML UCUP PO ONE (08:32)
--- NOTE | 2021-04-09 13:25 | P.PN ---
Subjective Date of Service: 04/09/21 Chief Complaint: Generalized weakness, UTI No issues overnight. Patient continued to have diarrhea according to the spouse. Hyperkalemia has improved. Serum creatinine is trending down. BUN is still elevated. Physical Examination - Vital Signs Temperature: 97.6 F Blood Pressure: 111/58 Pulse: 46 Respirations: 18 Pulse Ox (%): 100 Assessment And Plan Physician Review: Patient Assessed, Agree with Above Assessment and Plan Physician Review Additional Text: Physical exam GEN: Alert, orientedx2, NAD HEENT: Normal conjunctiva, sclera anicteric. CV: Irregular rate and rhythm, no edema Pulm: Nonlabored respiration on room air, clear to auscultation bilaterally ABD: Soft, nontender, nondistended, PEG Tube in place, no purulent drainage Neuro: Normal speech, normal affect Skin: Superficial skin tear noted to lateral thigh Genitourinary: Hernandez catheter. Penile swelling resolved. Problem List acute cystitis Acute hypoxemic respiratory failure secondary to acute on chronic diastolic CHF acute metabolic encephalopathy secondary to UTI bradycardia Diabetes mellitus type 2, non-insulin dependent h/o PEG tube s/p aspiration pneumonia Anemia of chronic disease with iron deficiency Chronic Hernandez catheter with history of urinary retention, recurrent UTIs History of CAD with previous CABG Hypertension Hyperlipidemia Anemia - appears to be at baseline. SP 2 units PRBC transfusion. Hemoglobin is stable between 9 and 10. Low MCV but percentage iron saturation of 50%-upper limits of normal. Acute on Chronic diastolic CHF. Lasix resumed with IV fluid. Daily weight and strict I\O. Nephrology started free water flushes via GT. Status post 250 mL normal saline bolus. Continue water flushes. ID seen patient given recurrent infections. acute cystitis with indwelling hernandez and possible LLL pneumonia. Urine culture grew Serratia and yeast. Leukocytosis resolved. Blood cultures: No growth. No fever for several days. Antibiotics switched to oral Augmentin. Continue Diflucan. DM2. BS monitoring with sliding scale insulin. PEG tube in place. h/o aspiration pneumonia in the past. states he has been doing well with regular food, sees speech therapy at home-no full consiste ncy restrictions. Patient tolerating food without any issues. Spouse request for PEG tube to changed since it clogs easily. Dr. Modi is not available this week to change his PEG tube. May be done as an outpatient. Constipation resolved. The patient has diarrhea. D discontinue. Discontinue senna due to persistent diarrhea. Iron deficiency anemia - no longer iron deficient. Iron replacement may be contributing to the constipation. Iron supplementation discontinued Hx of Urinary retention. Continue hernandez care Hx of CAD and CABG: Holding metoprolol due to bradycardia and junctional rhy thm. Cardiology input appreciated. Troponin is negative. Echocardiogram to be done on Saturday. Hypertension: Patient currently normotensive. Holding metoprolol due to bradycardia. Continue doxazosin and amlodipine Hyperlipidemia: Continue statin. Sore throat: Secondary to dryness in the pharynx. Keep mouth and pharynx wet. Hyperkalemia: Seen by nephrology. Hyperkalemia could be related to dehydration. Status post Kayexalate Changed feeding formula to Nepro with low K. continue free water flushes. Now on IV fluid and IV Lasix. bolus. Monitor renal function. Follow potassium level. DVT prophylaxis with heparin sub
[2021-04-09] MEDS ORDERED: CHLORTHALIDONE 25 MG TAB FT ONE (17:15)
[2021-04-09] MEDS: DOXAZOSIN 2 MG TAB FT SCH ×2 (20:00)
[2021-04-09] MEDS: TRAZODONE 150 MG TAB FT SCH (20:05)
[2021-04-09] MEDS: ASPIRIN EC 81 MG TAB PO SCH (20:06)
[2021-04-09] MEDS: ATORVASTATIN 80 MG TAB FT SCH (20:07)
[2021-04-09] MEDS ORDERED: D5 0.45 NS 0 ML IV ONE (22:31)
[2021-04-10 05:44] LABS: Absolute Lymphocytes (CBC) 1.3 K/uL (0.7-4.9); Basophils % 0.8 % (0-1.3); Hematocrit 23.9 % (39.6-49.0); Lymphocytes % 17.6 % (15.3-44.8); MPV 10.3 fL (7.6-11.3); RBC Red Blood Cell Count 3.14 M/uL (4.33-5.43)
[2021-04-10 05:49] LABS: Folic Acid, (Folate) 10.1 ng/mL (3.1-17.5); Potassium 4.9 mmol/L (3.5-5.1)
--- NOTE | 2021-04-10 05:49 | RAD REPORT ---
EXAM DESCRIPTION: RAD - Chest Single View - 04/10/2021 4:33 am CLINICAL HISTORY: cough, possible volume overload COMPARISON: April 09 portable TECHNIQUE: AP portable chest image was obtained 04/10/2021 4:33 am . FINDINGS: Interstitial and alveolar opacities are present generally similar to the prior study. Find ings may be fractionally worse in the right base and continued monitoring is needed. Cardiomegaly rem ains. Upper lobe vasculature not outside of normal range. Sternotomy wires are in place. No pneumothorax or enlarging pleural effusion. No acute bony abnormali ty seen. No acute aortic findings suspected. IMPRESSION: Bibasilar interstitial and alveolar opacification generally similar to the prior day richar dy. Findings of right base may be slightly worse. Cardiomegaly without significant vascular engorgement r emains. Volume overload or failure remain primary considerations. Correlation is needed with any lab or physi lizzy exam findings that may suggest a concurrent right base pneumonia.
[2021-04-10 06:23] LABS: Anisocytosis 1+; Blood Morphology Comment NOTED (NOT SEEN); Platelet Estimate DECR; White Blood Cell Scan OK (OK)
[2021-04-10] MEDS: INSULIN -REGULAR HUMAN 50 UNIT/0.5 ML ML SQ SCH ×4 (07:30→21:14)
[2021-04-10] MEDS: SENOSIDES 8.6 MG TAB PO SCH ×2 (07:59→19:41)
[2021-04-10] MEDS: AMOX/K CLAV 875 MG TAB PO SCH (08:00)
[2021-04-10] MEDS: HEPARIN 5000 UNIT/ML 1 ML VIAL SQ SCH ×2 (08:00→19:40)
[2021-04-10] MEDS: NEPRO 1,000 ML BOT FT SCH (08:00)
[2021-04-10] MEDS: FLUCONAZOLE 100 MG TAB PO SCH (08:01)
[2021-04-10] MEDS: ESCITALOPRAM 20 MG TAB FT SCH (08:01)
[2021-04-10] MEDS: AMLODIPINE 10 MG TAB FT SCH (08:02)
[2021-04-10] MEDS: CLOPIDOGREL 75 MG TABLET FT SCH (08:02)
[2021-04-10] MEDS: GABAPENTIN 300 MG CAP FT SCH ×2 (08:02→19:35)
[2021-04-10] MEDS: PANTOPRAZOLE 40MG TABLET PO SCH (08:02)
[2021-04-10] MEDS: SUCRALFATE 1GM/10ML UCUP FT SCH ×4 (08:05→19:34)
[2021-04-10] MEDS: ACETAMINOPHEN 500 MG TAB PO PRN ×2 (08:58→19:38)
--- NOTE | 2021-04-10 09:47 | P.PN ---
Subjective Date of Service: 04/10/21 Chief Complaint: Generalized weakness, UTI Patient seen examined at bedside, completed course of antibiotics. Hemoglobin slightly low today at 7.7. Afebrile, hemodynamically stable with no leukocytosis. Review of Systems 10-point ROS is otherwise unremarkable Physical Examination - Vital Signs Temperature: 98.4 F Blood Pressure: 128/53 Pulse: 47 Respirations: 12 Pulse Ox (%): 96 - Studies Laboratory Last Values WBC 18.20 K/uL (4.3-10.9) H 04/02/21 12:31 RBC 3.27 M/uL (4.33-5.43) L 04/02/21 12:31 Hgb 7.4 g/dL (13.6-17.9) L 04/02/21 12:31 Hct 23.3 % (39.6-49.0) L 04/02/21 12:31 MCV 71.1 fL (80-100) L D 04/02/21 12:31 MCH 22.6 pg (27.0-35.0) L 04/02/21 12:31 MCHC 31.8 g/dL (32.0-36.0) L 04/02/21 12:31 RDW 16.0 % (12.1-15.2) H 04/02/21 12:31 Plt Count 109 K/uL (152-406) L 04/02/21 12:31 MPV 10.6 fL (7.6-11.3) 04/02/21 12:31 Neutrophils % 87.3 % (41.7-73.7) H 04/02/21 12:31 Lymphocytes % 6.1 % (15.3-44.8) L 04/02/21 12:31 Monocytes % 6.2 % (3.3-12.3) 04/02/21 12:31 Eosinophils % 0.2 % (0-4.4) 04/02/21 12:31 Basophils % 0.2 % (0-1.3) 04/02/21 12:31 Absolute Neutrophils 15.9 K/uL (1.8-8.0) H 04/02/21 12:31 Absolute Lymphocytes 1.1 K/uL (0.7-4.9) 04/02/21 12:31 Absolute Monocytes 1.1 K/uL (0.1-1.3) 04/02/21 12:31 Absolute Eosinophils 0.0 K/uL (0-0.5) 04/02/21 12:31 Absolute Basophils 0.0 K/uL (0-0.5) 04/02/21 12:31 Platelet Estimate Decr 04/02/21 12:31 Hypochromasia 1+ 04/02/21 12:31 Poikilocytosis 1+ 04/02/21 12:31 Anisocytosis 1+ 04/02/21 12:31 Microcytosis 1+ 04/02/21 12:31 Morphology Comment Noted (NOT SEEN) 04/02/21 12:31 PT 13.1 SECONDS (9.5-12.5) H 04/02/21 12:31 INR 1.14 04/02/21 12:31 Sodium 137 mmol/L (136-145) 04/02/21 12:31 Potassium 5.0 mmol/L (3.5-5.1) 04/02/21 12:31 Chloride 104 mmol/L (98-107) 04/02/21 12:31 Carbon Dioxide 28 mmol/L (21-32) 04/02/21 12:31 BUN 87 mg/dL (7-18) H 04/02/21 12:31 Creatinine 1.45 mg/dL (0.55-1.3) H 04/02/21 12:31 Estimated GFR 49 mL/min (=/>90) L 04/02/21 12:31 Glucose 104 mg/dL (74-106) 04/02/21 12:31 Lactic Acid 1.0 mmol/L (0.4-2.0) 04/02/21 15:35 Calcium 8.6 mg/dL (8.5-10.1) 04/02/21 12:31 Magnesium 3.2 mg/dL (1.8-2.4) H 04/02/21 12:31 Total Bilirubin 0.5 mg/dL (0.2-1.0) 04/02/21 12:31 Direct Bilirubin 0.2 mg/dL (0-0.2) 04/02/21 12:31 AST 45 U/L (15-37) H 04/02/21 12:31 ALT 113 U/L (12-78) H 04/02/21 12:31 Alkaline Phosphatase 89 U/L (45-117) 04/02/21 12:31 Rapid Troponin I 0.02 ng/mL (0.0-0.045) 04/02/21 12:31 NT-Pro-B Natriuret Pep 16009 pg/mL (<125) H 04/02/21 12:31 Serum Total Protein 6.3 g/dL (6.4-8.2) L 04/02/21 12:31 Albumin 2.7 g/dL (3.4-5.0) L 04/02/21 12:31 Globulin 3.6 g/dL (2.3-3.5) H 04/02/21 12:31 Albumin/Globulin Ratio 0.8 (1.1-1.8) L 04/02/21 12:31 Lipase 115 U/L (73-393) 04/02/21 12:31 TSH 1.480 uIU/mL (0.360-3.740) 04/02/21 12:31 TSH Cancelled 04/02/21 12:31 Free T4 1.01 ng/dL (0.76-1.46) 04/02/21 12:31 Urine pH 7.0 (5.0-7.0) 04/02/21 12:46 Ur Specific Alexander 1.020 (1.005-1.030) 04/02/21 12:46 Glucose (UA)(Auto) Negative (Negative) 04/02/21 12:46 Urine Ketones Negative (Negative) 04/02/21 12:46 Urine Blood 1+ (Negative) H 04/02/21 12:46 Urine Nitrite Negative (Negative) 04/02/21 12:46 Ur Leukocyte Esterase 1+ (Negative) H 04/02/21 12:46 Urine Total Protein 3+ (Negative) H 04/02/21 12:46 SARS-CoV-2 Rap RNA(RT-PCR) Negative (NEGATIVE) 04/02/21 12:31 Smear Scan Ok (OK) 04/02/21 12:31 ABO/Rh A POSITIVE 04/02/21 12:31 Solid Phase Ab Screen Negative 04/02/21 12:31 Crossmatch See Detail 04/02/21 12:31 Assessment And Plan - Plan Physical EXam: General: Alert, In no apparent distress, Cachectic HEENT: Atraumatic, Normocephalic Neck: Supple, 2+ carotid pulse no bruit Respiratory: Clear to auscultation bilaterally, Normal air movement Cardiovascular: No edema, Regular rate/rhythm Gastrointestinal: Normal bowel sounds, Other (PEG tube. Insertion site with slight erythema) Musculoskeletal: No swelling, No contractures Integumentary: No rashes, No breakdown, No significant lesion, Other (Super ficial skin tear noted to left lateral thigh) Conclusions/Impression: Antibiotics: Meropenem Start: 04/02 Stop: 04/05 Augmentin Start: 04/05 Stop: 04/09 Assessment/plan Recurrent urinary tract infection Patient was recently treated for a UTI with a 10 day course of a cephalosporin. Urine culture growing Serratia sensitive to Augmentin, patient started on renally dosed Augmentin. Continue until 04/09. Urinary analysis grew yeast, continue 14 day course of oral Diflucan. Possible left lower lobe pneumonia CT chest showed a left lower lobe opacity, meropenem started due to concern for possible aspiration pneumonia any for anaerobic coverage. Patient switched to Augmentin, still has anaerobic coverage. Leukocytosis with left shift Continuing broad-spectrum IV antibiotic. Continue to monitor and watch fever curve. Diabetes, CKD stage 3, CVA Medical management per primary team Plan of care discussed Dr. Ortega Thank you for consultation Physician Review: Patient Assessed, Agree with Above Assessment and Plan Physician Review Additional Text: Physical exam GEN: Alert, orientedx2, NAD HEENT: Normal conjunctiva, sclera anicteric. CV: Irregular rate and rhythm, no edema Pulm: Nonlabored respiration on room air, clear to auscultation bilaterally ABD: Soft, nontender, nondistended, PEG Tube in place, no purulent drainage Neuro: Normal speech, normal affect Skin: Superficial skin tear noted to lateral thigh Genitourinary: Hernandez catheter. Penile swelling resolved. Problem List acute cystitis Acute hypoxemic respiratory failure secondary to acute on chronic diastolic CHF acute metabolic encephalopathy secondary to UTI bradycardia Diabetes mellitus type 2, non-insulin dependent h/o PEG tube s/p aspiration pneumonia Anemia of chronic disease with iron deficiency Chronic Hernandez catheter with history of urinary retention, recurrent UTIs History of CAD with previous CABG Hypertension Hyperlipidemia Anemia - appears to be at baseline. SP 2 units PRBC transfusion. Hemoglobin is stable between 9 and 10. Low MCV but percentage iron saturation of 50%-upper limits of normal. Acute on Chronic diastolic CHF. Lasix resumed with IV fluid. Daily weight and strict I\O. Nephrology started free water flushes via GT. Status post 250 mL normal saline bolus. Continue water flushes. ID seen patient given recurrent infections. acute cystitis with indwelling hernandez and possible LLL pneumonia. Urine culture grew Serratia and yeast. Leukocytosis resolved. Blood cultures: No growth. No fever for several days. Antibiotics switched to oral Augmentin. Continue Diflucan. DM2. BS monitoring with sliding scale insulin. PEG tube in place. h/o aspiration pneumonia in the past. states he has been doing well with regular food, sees speech therapy at home-no full consistency restrictions. Patient tolerating food without any issues. Spouse request for PEG tube to changed since it clogs easily. Dr. Modi is not available this week to change his PEG tube. May be done as an outpatient. Constipation resolved. The patient has diarrhea. D discontinue. Discontinue senna due to persistent diarrhea. Iron deficiency anemia - no longer iron deficient. Iron replacement may be contributing to the constipation. Iron supplementation discontinued Hx of Urinary retention. Continue hernandez care Hx of CAD and CABG: Holding metoprolol due to bradycardia and junctional rhythm. Cardiology input appreciated. Troponin is negative. Echocardiogram to be done on Saturday. Hypertension: Patient currently normotensive. Holding metoprolol due to bradycardia. Continue doxazosin and amlodipine Hyperlipidemia: Continue statin. Sore throat: Secondary to dryness in the pharynx. Keep mouth and pharynx wet. Hyperkalemia: Seen by nephrology. Hyperkalemia could be related to dehydration. Status post Kayexalate Changed feeding formula to Nepro with low K. continue free water flushes. Now on IV fluid and IV Lasix. bolus. Monitor renal function. Follow potassium level. DVT prophylaxis with heparin sub
--- NOTE | 2021-04-10 11:27 | P.PN ---
Date of Service: 04/10/21 Vital Signs Temp Pulse Resp BP Pulse Ox 98.4 F 47 L 12 128/53 L 96 04/10/21 09:47 04/10/21 09:47 04/10/21 09:47 04/10/21 09:47 04/10/21 09:47 Medications Acetaminophen (Acetaminophen 500 Mg Tab) 500 mg PO Q4HP PRN PRN Reason: TEMP > 100' F Last Admin: 04/10/21 08:58 Dose: 500 mg Documented by: Albuterol Sulfate (Albuterol 2.5 Mg/3 Ml Neb [place]) 2.5 mg NEB Q6H PRN PRN Reason: SHORTNESS OF BREATH Amlodipine Besylate (Amlodipine 10 Mg Tab) 10 mg FT 08 [facility] Last Admin: 04/10/21 08:02 Dose: 10 mg Documented by: Aspirin (Aspirin Ec 81 Mg Tab) 81 mg PO 1999 [facility] Last Admin: 04/09/21 20:06 Dose: 81 mg Documented by: Atorvastatin Calcium (Atorvastatin 80 Mg Tab) 80 mg FT 1999 [facility] Last Admin: 04/09/21 20:07 Dose: 80 mg Documented by: Clopidogrel Bisulfate (Clopidogrel 75 Mg Tablet) 75 mg FT 799 [facility] Last Admin: 04/10/21 08:02 Dose: 75 mg Documented by: Dextrose (D50w 25 Gm/50 Ml Syringe) 12.5 gm IV PRN PRN; Protocol PRN Reason: HYPOGLYCEMIA Doxazosin Mesylate (Doxazosin 2 Mg Tab) 2 mg FT 1999 [facility] Last Admin: 04/09/21 20:00 Dose: Not Given Documented by: Enteral Nutritional Formula (Glucerna 1.5 Higinio 1,000 Ml Bot) 300 ml FT QID [facility] Escitalopram Oxalate (Escitalopram 20 Mg Tab) 30 mg FT 08 [facility] Last Admin: 04/10/21 08:01 Dose: 30 mg Documented by: Fluconazole (Fluconazole 100 Mg Tab) 200 mg PO 0800 [facility] Stop: 04/19/21 08:01 Last Admin: 04/10/21 08:01 Dose: 200 mg Documented by: Furosemide (Furosemide 20 Mg/ 2ml Vial) 20 mg IV Q6H [facility] Stop: 04/10/21 18:01 Gabapentin (Gabapentin 300 Mg Cap) 300 mg FT 08,1999 [facility] Last Admin: 04/10/21 08:02 Dose: 300 mg Documented by: Glucagon (Glucagon 1 Mg/Vial) 1 mg IM 1X PRN; Protocol PRN Reason: HYPOGLYCEMIA Heparin Sodium (Porcine) (Heparin 5000 Unit/Ml 1 Ml Vial) 5,000 unit SQ [facility] Last Admin: 04/10/21 08:00 Dose: Not Given Documented by: Sodium Chloride (Sodium Chloride) 250 mls @ 999 mls/hr IV Q15M PRN PRN Reason: HYPOTENSION Insulin Human Regular (Insulin -Regular Human 50 Unit/0.5 Ml Ml) 0 unit SQ ACHS [facility]; Protocol Last Admin: 04/10/21 07:30 Dose: Not Given Documented by: Ondansetron HCl (Ondansetron 4 Mg/2 Ml Vial) 4 mg IV Q6HP PRN PRN Reason: NAUSEA / VOMITING Pantoprazole Sodium (Pantoprazole 40mg Tablet) 40 mg PO 08 [facility]; Protocol Last Admin: 04/10/21 08:02 Dose: 40 mg Documented by: Polyethylene Glycol (Polyethyl Gly 3350 17 Gm/Dose) 17 gm PO DAILY PRN PRN Reason: CONSTIPATION Senna (Senosides 8.6 Mg Tab) 17.2 mg PO [facility] Last Admin: 04/10/21 07:59 Dose: 17.2 mg Documented by: Sodium Chloride (Flush Normal Saline 10 Ml) 10 ml IV [facility] Last Admin: 04/10/21 08:03 Dose: 10 ml Documented by: Sucralfate (Sucralfate 1gm/10ml Ucup) 0.1 gm FT 0800,1200,1600,1999 [facility] Last Admin: 04/10/21 08:05 Dose: 0.1 gm Documented by: Trazodone HCl (Trazodone 150 Mg Tab) 150 mg FT 1999 [facility] Last Admin: 04/09/21 20:05 Dose: 150 mg Documented by: Microbiology Results 04/02/21 15:20 Blood - Blood Aerobic Blood Culture - Final No growth in 5 days. 04/02/21 15:20 Blood - Blood Anaerobic Blood Culture - Final No growth in 5 days. 04/02/21 15:35 Blood - Blood Aerobic Blood Culture - Final No growth in 5 days. 04/02/21 15:35 Blood - Blood Anaerobic Blood Culture - Final No growth in 5 days. 04/02/21 12:47 Clean Catch Urine [place] Count - Final >100,000 CFU/ML. 04/02/21 12:47 Clean Catch Urine - Final Serratia Marcescens Gram Neg [place] 04/02/21 15:21 Stool Occult Blood - Final Assessment/ Plan: Nephrology Progress Note is concerned about persistent bradycardia CPS stable without CP. Worsening hip edema. No acute events overnight Vitals, medications blood work and imaging reviewed in the chart General: In no apparent distress, Cooperative Neck: Supple Respiratory: Clear to auscultation bilaterally Cardiovascular: No edema, Regular rate/rhythm. Hip edema. Gastrointestinal: Soft and benign, Non-distended Musculoskeletal: No clubbing, No contractures Integumentary: No rashes, No cyanosis Neurological: Normal speech Blood work reviewed in the chart. Imagings Data: EXAM DESCRIPTION: CT - Chest Abd Pelvis Wo Con - 04/02/2021 3:09 pm CLINICAL HISTORY: Cough and abdominal pain COMPARISON: October 2020 TECHNIQUE: Computed axial tomography of the chest, abdomen and pelvis was obtained. Oral contrast was given. IV contrast was not requested. All CT scans are performed using dose optimization technique as appropriate and may include automated exposure control or mA/KV adjustment according to patient size. FINDINGS: The evaluation of mediastinum, tiffany, vessels and solid organs is limited secondary to the lack of IV contrast administration No mediastinal or hilar lymphadenopathy is seen. Minimal bilateral pleural effusions. A pericardial effusion is not seen. Mild left lower lobe opacities with small area of atelectasis. The liver, spleen, pancreas, adrenals and kidneys appear grossly bri Percutaneous tube within the stomach. There is no evidence of diverticulitis. A moderate amount of stool throughout colon. Cholelithiasis Compression fractures involving T12 and L3 unchanged Holcomb catheter within the bladder IMPRESSION: Mild left lower lobe opacities probably mild pneumonia. Mild left lower lobe atelectasis Cholelithiasis Moderate amount stool within the colon EXAM DESCRIPTION: RADChest Single View04/02/2021 12:24 pm CLINICAL HISTORY: Cough COMPARISON: February 2021 FINDINGS: Mild bilateral pulmonary opacities. Heart is mildly enlarged. Postsurgical changes involve the chest Eventration left hemidiaphragm IMPRESSION: Mild bilateral pulmonary opacities probably interstitial pulmonary edema EXAM DESCRIPTION: RAD - Chest Single View - 04/10/2021 4:33 am CLINICAL HISTORY: cough, possible volume overload COMPARISON: April 09 portable TECHNIQUE: AP portable chest image was obtained 04/10/2021 4:33 am . FINDINGS: Interstitial and alveolar opacities are present generally similar to the prior study. Findings may be fractionally worse in the right base and continued monitoring is needed. Cardiomegaly remains. Upper lobe vasculature not outside of normal range. Sternotomy wires are in place. No pneumothorax or enlarging pleural effusion. No acute bony abnormality seen. No acute aortic findings suspected. IMPRESSION: Bibasilar interstitial and alveolar opacification generally similar to the prior day study. Findings of right base may be slightly worse. Cardiomegaly without significant vascular engorgement remains. Volume overload or failure remain primary considerations. Correlation is needed with any lab or physical exam findings that may suggest a concurrent right base pneumonia. Conclusions/Impression: OSCAR likely due to hypovolemia CKD III with proteinuria -No NSAIDs -Discontinue IVF Hyponatremia -Give Lasix Hyperkalemia -Low potassium diet -Continue Nepro TF -Diuretics ordered Hypocalcemia -Start Calcitriol HTN with CKD/ CHF -Continue Amlodipine Diastolic CHF, chronic -Low sodium diet -Lasix 20mg IV X2 doses DM II with CKD & Hyperglycemia -RISS Moderate malnutrition -Maintain nutrition -Continue Nepro Anemia in chronic illness -Monitor H&H -Transfuse PRBC as needed A/C cystitis -Continue Augmentin Bradycardia -Repeat EKG
--- NOTE | 2021-04-10 11:42 | P.PN ---
Subjective Date of Service: 04/10/21 Chief Complaint: Generalized weakness, UTI No issues overnight. Patient is developing edema-penis and thigh. Hyperkalemia resolved. Serum creatinine continue to trend down. Physical Examination - Vital Signs Temperature: 98.4 F Blood Pressure: 128/53 Pulse: 47 Respirations: 12 Pulse Ox (%): 96 - Physical Exam General: In no apparent distress, Oriented x3 HEENT: Mucous membr. moist/pink, Other (Clear pharynx, no exudate or erythema.) Neck: JVD not distended Respiratory: Clear to auscultation bilaterally, Normal air movement Cardiovascular: Edema (Mild edema of bilateral thigh) Gastrointestinal: Normal bowel sounds, Soft and benign, Non-distended Musculoskeletal: No swelling Integumentary: No rashes Assessment And Plan Physician Review: Patient Assessed, Agree with Above Assessment and Plan Physician Review Additional Text: Physical exam GEN: Alert, orientedx2, NAD HEENT: Normal conjunctiva, sclera anicteric. CV: Irregular rate and rhythm, no edema Pulm: Nonlabored respiration on room air, clear to auscultation bilaterally ABD: Soft, nontender, nondistended, PEG Tube in place, no purulent drainage Neuro: Normal speech, normal affect Skin: Superficial skin tear noted to lateral thigh Genitourinary: Hernandez catheter. mild penile edema. Problem List acute cystitis Acute hypoxemic respiratory failure secondary to acute on chronic diastolic CHF acute metabolic encephalopathy secondary to UTI bradycardia Diabetes mellitus type 2, non-insulin dependent h/o PEG tube s/p aspiration pneumonia Anemia of chronic disease with iron deficiency Chronic Hernandez catheter with history of urinary retention, recurrent UTIs History of CAD with previous CABG Hypertension Hyperlipidemia Anemia - appears to be at baseline. SP 2 units PRBC transfusion. Hemoglobin dropped to 7-8. Low MCV but percentage iron saturation of 50%-upper limits of normal. Acute on Chronic diastolic CHF. Lasix resumed. Discontinue IV fluid. Daily weight and strict I\O. Nephrology started free water flushes via GT. Status post 250 mL normal saline bolus. ID seen patient given recurrent infections. acute cystitis with indwelling hernandez and possible LLL pneumonia. Urine culture grew Serratia and yeast. Leukocytosis resolved. Blood cultures: No growth. No fever for several days. Patient completed antibiotics. Continue Diflucan. DM2. BS monitoring with sliding scale insulin. PEG tube in place. h/o aspiration pneumonia in the past. states he has been doing well with regular food, sees speech therapy at home-no full consistency restrictions. Patient tolerating food without any issues. Spouse request for PEG tube to changed since it clogs easily. Dr. Paulson contacted to evaluate for possible PEG tube change. Constipation resolved. The patient has diarrhea. Discontinue senna due to persistent diarrhea. Iron deficiency anemia - no longer iron deficient. Iron replacement may be contributing to the constipation. Iron supplementation discontinued given high patient desaturates to avoid iron overload. Hx of Urinary retention. Continue hernandez care Hx of CAD and CABG: Holding metoprolol due to bradycardia and junctional rhythm. Cardiology input appreciated. Troponin is negative. Echocardiogram today. Hypertension: Patient currently normotensive. Holding metoprolol due to bradycardia. Continue doxazosin and amlodipine Hyperlipidemia: Continue statin. Sore throat: Secondary to dryness in the pharynx. Pharynx is clear. Keep mouth and pharynx wet. Hyperkalemia: Seen by nephrology. Hyperkalemia could be related to dehydration. Status post Kayexalate Changed feeding formula to Nepro with low K. Put on free water flushes. Hyperkalemia resolved. Monitor renal function. Follow potassium level. DVT prophylaxis with heparin sub
[2021-04-10] MEDS: FUROSEMIDE 20 MG/ 2ML VIAL IV SCH ×2 (11:52→17:11)
[2021-04-10] MEDS: GLUCERNA 1.5 CAL 1,000 ML BOT FT SCH ×3 (11:59→21:13)
[2021-04-10] MEDS: ASPIRIN EC 81 MG TAB PO SCH (19:34)
[2021-04-10] MEDS: TRAZODONE 150 MG TAB FT SCH (19:34)
[2021-04-10] MEDS: ATORVASTATIN 80 MG TAB FT SCH (19:35)
[2021-04-10] MEDS: DOXAZOSIN 2 MG TAB FT SCH (19:39)
[2021-04-11 05:44] LABS: Absolute Lymphocytes (CBC) 1.1 K/uL (0.7-4.9); Basophils % 0.8 % (0-1.3); Hematocrit 25.1 % (39.6-49.0); Lymphocytes % 17.1 % (15.3-44.8); MPV 10.5 fL (7.6-11.3); RBC Red Blood Cell Count 3.35 M/uL (4.33-5.43)
[2021-04-11 06:01] LABS: Albumin 2.5 g/dL (3.4-5.0); Bilirubin Total 0.4 mg/dL (0.2-1.0); Phosphorus 4.1 mg/dL (2.5-4.9)
[2021-04-11] MEDS: INSULIN -REGULAR HUMAN 50 UNIT/0.5 ML ML SQ SCH ×4 (07:30→20:27)
[2021-04-11] MEDS: SENOSIDES 8.6 MG TAB PO SCH ×2 (08:36→20:00)
[2021-04-11] MEDS: SUCRALFATE 1GM/10ML UCUP FT SCH ×4 (08:36→20:29)
[2021-04-11] MEDS: ESCITALOPRAM 20 MG TAB FT SCH (08:38)
[2021-04-11] MEDS: CALCITROL 0.25 MCG CAP PO SCH (08:38)
[2021-04-11] MEDS: FLUCONAZOLE 100 MG TAB PO SCH (08:38)
[2021-04-11] MEDS: CLOPIDOGREL 75 MG TABLET FT SCH (08:38)
[2021-04-11] MEDS: GABAPENTIN 300 MG CAP FT SCH ×2 (08:39→20:28)
[2021-04-11] MEDS: VITAMIN D 5,000 UNIT CAP PO SCH (08:39)
[2021-04-11] MEDS: HEPARIN 5000 UNIT/ML 1 ML VIAL SQ SCH ×2 (08:39→20:27)
[2021-04-11] MEDS: PANTOPRAZOLE 40MG TABLET PO SCH (08:39)
[2021-04-11] MEDS: AMLODIPINE 10 MG TAB FT SCH (08:39)
[2021-04-11] MEDS: GLUCERNA 1.5 CAL 1,000 ML BOT FT SCH ×4 (08:46→20:29)
--- NOTE | 2021-04-11 11:06 | P.PN ---
Subjective Date of Service: 04/11/21 Chief Complaint: Generalized weakness, UTI Patient seen examined at bedside, no acute events. Review of Systems 10-point ROS is otherwise unremarkable Physical Examination - Vital Signs Temperature: 98.7 F Blood Pressure: 157/71 Pulse: 66 Respirations: 20 Pulse Ox (%): 96 - Studies Laboratory Last Values WBC 18.20 K/uL (4.3-10.9) H 04/02/21 12:31 RBC 3.27 M/uL (4.33-5.43) L 04/02/21 12:31 Hgb 7.4 g/dL (13.6-17.9) L 04/02/21 12:31 Hct 23.3 % (39.6-49.0) L 04/02/21 12:31 MCV 71.1 fL (80-100) L D 04/02/21 12:31 MCH 22.6 pg (27.0-35.0) L 04/02/21 12:31 MCHC 31.8 g/dL (32.0-36.0) L 04/02/21 12:31 RDW 16.0 % (12.1-15.2) H 04/02/21 12:31 Plt Count 109 K/uL (152-406) L 04/02/21 12:31 MPV 10.6 fL (7.6-11.3) 04/02/21 12:31 Neutrophils % 87.3 % (41.7-73.7) H 04/02/21 12:31 Lymphocytes % 6.1 % (15.3-44.8) L 04/02/21 12:31 Monocytes % 6.2 % (3.3-12.3) 04/02/21 12:31 Eosinophils % 0.2 % (0-4.4) 04/02/21 12:31 Basophils % 0.2 % (0-1.3) 04/02/21 12:31 Absolute Neutrophils 15.9 K/uL (1.8-8.0) H 04/02/21 12:31 Absolute Lymphocytes 1.1 K/uL (0.7-4.9) 04/02/21 12:31 Absolute Monocytes 1.1 K/uL (0.1-1.3) 04/02/21 12:31 Absolute Eosinophils 0.0 K/uL (0-0.5) 04/02/21 12:31 Absolute Basophils 0.0 K/uL (0-0.5) 04/02/21 12:31 Platelet Estimate Decr 04/02/21 12:31 Hypochromasia 1+ 04/02/21 12:31 Poikilocytosis 1+ 04/02/21 12:31 Anisocytosis 1+ 04/02/21 12:31 Microcytosis 1+ 04/02/21 12:31 Morphology Comment Noted (NOT SEEN) 04/02/21 12:31 PT 13.1 SECONDS (9.5-12.5) H 04/02/21 12:31 INR 1.14 04/02/21 12:31 Sodium 137 mmol/L (136-145) 04/02/21 12:31 Potassium 5.0 mmol/L (3.5-5.1) 04/02/21 12:31 Chloride 104 mmol/L (98-107) 04/02/21 12:31 Carbon Dioxide 28 mmol/L (21-32) 04/02/21 12:31 BUN 87 mg/dL (7-18) H 04/02/21 12:31 Creatinine 1.45 mg/dL (0.55-1.3) H 04/02/21 12:31 Estimated GFR 49 mL/min (=/>90) L 04/02/21 12:31 Glucose 104 mg/dL (74-106) 04/02/21 12:31 Lactic Acid 1.0 mmol/L (0.4-2.0) 04/02/21 15:35 Calcium 8.6 mg/dL (8.5-10.1) 04/02/21 12:31 Magnesium 3.2 mg/dL (1.8-2.4) H 04/02/21 12:31 Total Bilirubin 0.5 mg/dL (0.2-1.0) 04/02/21 12:31 Direct Bilirubin 0.2 mg/dL (0-0.2) 04/02/21 12:31 AST 45 U/L (15-37) H 04/02/21 12:31 ALT 113 U/L (12-78) H 04/02/21 12:31 Alkaline Phosphatase 89 U/L (45-117) 04/02/21 12:31 Rapid Troponin I 0.02 ng/mL (0.0-0.045) 04/02/21 12:31 NT-Pro-B Natriuret Pep 60514 pg/mL (<125) H 04/02/21 12:31 Serum Total Protein 6.3 g/dL (6.4-8.2) L 04/02/21 12:31 Albumin 2.7 g/dL (3.4-5.0) L 04/02/21 12:31 Globulin 3.6 g/dL (2.3-3.5) H 04/02/21 12:31 Albumin/Globulin Ratio 0.8 (1.1-1.8) L 04/02/21 12:31 Lipase 115 U/L (73-393) 04/02/21 12:31 TSH 1.480 uIU/mL (0.360-3.740) 04/02/21 12:31 TSH Cancelled 04/02/21 12:31 Free T4 1.01 ng/dL (0.76-1.46) 04/02/21 12:31 Urine pH 7.0 (5.0-7.0) 04/02/21 12:46 Ur Specific [place] 1.020 (1.005-1.030) 04/02/21 12:46 Glucose (UA)(Auto) Negative (Negative) 04/02/21 12:46 Urine Ketones Negative (Negative) 04/02/21 12:46 Urine Blood 1+ (Negative) H 04/02/21 12:46 Urine Nitrite Negative (Negative) 04/02/21 12:46 Ur Leukocyte Esterase 1+ (Negative) H 04/02/21 12:46 Urine Total Protein 3+ (Negative) H 04/02/21 12:46 SARS-CoV-2 Rap RNA(RT-PCR) Negative (NEGATIVE) 04/02/21 12:31 Smear Scan Ok (OK) 04/02/21 12:31 ABO/Rh A POSITIVE 04/02/21 12:31 Solid Phase Ab Screen Negative 04/02/21 12:31 Crossmatch See Detail 04/02/21 12:31 Assessment And Plan - Plan Physical Exam: General: Alert, In no apparent distress, Cachectic HEENT: Atraumatic, Normocephalic Neck: Supple, 2+ carotid pulse no bruit Respiratory: Clear to auscultation bilaterally, Normal air movement Cardiovascular: No edema, Regular rate/rhythm Gastrointestinal: Normal bowel sounds, Other (PEG tube. Insertion site with slight erythema) Musculoskeletal: No swelling, No contractures Integumentary: No rashes, No breakdown, No significant lesion, Other (Superficial skin tear noted to left lateral thigh) Conclusions/Impression: Antibiotics: Meropenem Start: 04/02 Stop: 04/05 Augmentin Start: 04/05 Stop: 04/09 Assessment/plan Recurrent urinary tract infection Patient was recently treated for a UTI with a 10 day course of a cephalosporin. Urine culture growing Serratia sensitive to Augmentin, patient started on renally dosed Augmentin. Continue until 04/09. Urinary analysis grew yeast, continue 14 day course of oral Diflucan. Possible left lower lobe pneumonia CT chest showed a left lower lobe opacity, meropenem started due to concern for possible aspiration pneumonia any for anaerobic coverage. Patient switched to Augmentin, still has anaerobic coverage. Leukocytosis with left shift Continuing broad-spectrum IV antibiotic. Continue to monitor and watch fever curve. Diabetes, CKD stage 3, CVA Medical management per primary team Plan of care discussed Dr. Ortega Thank you for consultation Physician Review: Patient Assessed, Agree with Above Assessment and Plan
--- NOTE | 2021-04-11 14:47 | RAD REPORT ---
EXAM DESCRIPTION: RAD - ENTEROSTOMY TUBE CHECK W/CONTR - 04/11/2021 2:24 pm CLINICAL HISTORY: Gastrostomy tube placement FINDINGS: Contrast was administered into the percutaneous gastrostomy tube. The stomach is opacified . Contrast enters the duodenum. No extravasation contrast Zero fluoroscopy performed. Zero fluoroscopic spot images obtained
--- NOTE | 2021-04-11 15:08 | P.PN ---
Subjective Date of Service: 04/11/21 Chief Complaint: Generalized weakness, UTI Subjective: Improving (feeling better, swelling of penis/scrotum improving, only 1 BM overnight. sore throat / dry throat.) Review of Systems 10-point ROS is otherwise unremarkable Physical Examination - Vital Signs Temperature: 97.9 F Blood Pressure: 128/60 Pulse: 52 Respirations: 20 Pulse Ox (%): 95 Assessment & Plan Physician Review Additional Text: Physical exam GEN: AOx2, NAD HEENT: Normal conjunctiva, sclera anicteric CV: regular rate and rhythm Pulm: Non-labored respiration on room air, clear to auscultation bilaterally ABD: Soft, nontender, nondistended, PEG tube in place, no purulent drainage Neuro: Normal speech, normal affect Genitourinary: Hernandez catheter. mild penile edema. Problem List acute cystitis Acute hypoxemic respiratory failure secondary to acute on chronic diastolic CHF acute metabolic encephalopathy secondary to UTI, resolved bradycardia Diabetes mellitus type 2, non-insulin dependent h/o PEG tube s/p aspiration pneumonia Anemia of chronic disease with iron deficiency Chronic Hernandez catheter with history of urinary retention, recurrent UTIs History of CAD with previous CABG Hypertension Hyperlipidemia Anemia - appears to be at baseline. s/p 2 units PRBC transfusion. Hemoglobin dropped to 7-8. Low MCV but percentage iron saturation of 50%-upper limits of normal. no evidence of bleed Acute on Chronic diastolic CHF. Lasix resumed. Daily weight and strict I\O. Nephrology started free water flushes via GT. ID seen patient given recurrent infections. acute cystitis with indwelling hernandez and possible LLL pneumonia. Urine culture grew Serratia and yeast. Leukocytosis resolved. Blood cultures: No growth. No fever for several days. Patient completed antibiotics. Continue Diflucan x 14 days total DM2. BS monitoring with sliding scale insulin. PEG tube in place. h/o aspiration pneumonia in the past. states he has been doing well with regular food, sees speech therapy at home-no full consistency restrictions. Patient tolerating food without any issues. Spouse request for PEG tube to changed since it clogs easily. Dr. Paulson contacted to evaluate for possible PEG tube change today Constipation resolved. Diarrhea resolved Iron deficiency anemia - no longer iron deficient. Iron replacement may be contributing to the constipation. Iron supplementation discontinued given high patient desaturates to avoid iron overload. Hx of Urinary retention. Continue hernandez care - exchange hernandez 04/11 Hx of CAD and CABG: Holding metoprolol due to bradycardia and junctional rhythm. Cardiology input appreciated. Troponin is negative Hypertension: Patient currently normotensive. Holding metoprolol due to bradycardia. Continue doxazosin and amlodipine Hyperlipidemia: Continue statin. Sore throat: Secondary to dryness in the pharynx. Pharynx is clear. Keep mouth and pharynx wet. Hyperkalemia: Seen by nephrology. Hyperkalemia could be related to dehydration. Status post Kayexalate Changed feeding formula to Nepro with low K. Put on free water flushes. Hyperkalemia resolved. Monitor renal function. Follow potassium level. overall improving, more stable Dispo: anticipate dc home tomorrow Time Spent Managing Pts Care (In Minutes): 35
[2021-04-11] MEDS: ACETAMINOPHEN 500 MG TAB PO PRN (17:08)
[2021-04-11 17:40] LABS: Urine Appearance CLOUDY (Clear); Urine Bilirubin NEGATIVE (Negative); Urine Blood 2+ (Negative); Urine Color YELLOW (Yellow); Urine Glucose NEGATIVE (Negative); Urine Protein 3+ (Negative); Urine Specific Gravity 1.015 (1.005-1.030); Urine Urobilinogen 0.2 mg/dL (0.2-1.0)
[2021-04-11 17:41] LABS: Urine Microscopic Reflex ORDER UMIC
[2021-04-11] MEDS ORDERED: BENZONATATE 100 MG CAP PO PRN (18:04)
[2021-04-11 18:15] LABS: Urine Amorphous Sediment 2+ /HPF (NONE SEEN); Urine Bacteria <20 /HPF (NONE SEEN); Urine Mucus 1+ /HPF (NONE SEEN)
[2021-04-11] MEDS: DOXAZOSIN 2 MG TAB FT SCH (20:00)
--- NOTE | 2021-04-11 20:24 | P.PN ---
Date of Service: 04/11/21 Vital Signs Temp Pulse Resp BP Pulse Ox 97.7 F 51 20 126/80 97 04/11/21 16:00 04/11/21 16:00 04/11/21 16:00 04/11/21 16:00 04/11/21 16:00 Medications Acetaminophen (Acetaminophen 500 Mg Tab) 500 mg PO Q4HP PRN PRN Reason: TEMP > 100' F Last Admin: 04/11/21 17:08 Dose: 500 mg Documented by: Albuterol Sulfate (Albuterol 2.5 Mg/3 Ml Neb [place]e) 2.5 mg NEB Q6H PRN PRN Reason: SHORTNESS OF BREATH Amlodipine Besylate (Amlodipine 10 Mg Tab) 10 mg FT 08 [facility] Last Admin: 04/11/21 08:39 Dose: 10 mg Documented by: Aspirin (Aspirin Ec 81 Mg Tab) 81 mg PO 1999 [facility] Last Admin: 04/10/21 19:34 Dose: 81 mg Documented by: Atorvastatin Calcium (Atorvastatin 80 Mg Tab) 80 mg FT 1999 [facility] Last Admin: 04/10/21 19:35 Dose: 80 mg Documented by: Benzonatate (Benzonatate 100 Mg Cap) 100 mg PO TID PRN PRN Reason: COUGH Calcitriol (Calcitrol 0.25 Mcg Cap) 0.5 mcg PO DAILY [facility] Last Admin: 04/11/21 08:38 Dose: 0.5 mcg Documented by: Cholecalciferol (Vitamin D 5,000 Unit Cap) 5,000 unit PO DAILY [facility] Last Admin: 04/11/21 08:39 Dose: 5,000 unit Documented by: Clopidogrel Bisulfate (Clopidogrel 75 Mg Tablet) 75 mg FT 08 [facility] Last Admin: 04/11/21 08:38 Dose: 75 mg Documented by: Dextrose (D50w 25 Gm/50 Ml Syringe) 12.5 gm IV PRN PRN; Protocol PRN Reason: HYPOGLYCEMIA Doxazosin Mesylate (Doxazosin 2 Mg Tab) 2 mg FT 1999 [facility] Last Admin: 04/10/21 19:39 Dose: Not Given Documented by: Enteral Nutritional Formula (Glucerna 1.5 Higinio 1,000 Ml Bot) 300 ml FT QID [facility] Last Admin: 04/11/21 17:18 Dose: 300 ml Documented by: Escitalopram Oxalate (Escitalopram 20 Mg Tab) 30 mg FT 08 [facility] Last Admin: 04/11/21 08:38 Dose: 30 mg Documented by: Fluconazole (Fluconazole 100 Mg Tab) 200 mg PO 0800 [facility] Stop: 04/19/21 08:01 Last Admin: 04/11/21 08:38 Dose: 200 mg Documented by: Gabapentin (Gabapentin 300 Mg Cap) 300 mg FT [facility] Last Admin: 04/11/21 08:39 Dose: 300 mg Documented by: Glucagon (Glucagon 1 Mg/Vial) 1 mg IM 1X PRN; Protocol PRN Reason: HYPOGLYCEMIA Guaifenesin (Guaifenesin 100 Mg/5 Ml Ucup) 100 mg FT BID PRN PRN Reason: COUGH Heparin Sodium (Porcine) (Heparin 5000 Unit/Ml 1 Ml Vial) 5,000 unit SQ [facility] Last Admin: 04/11/21 08:39 Dose: 5,000 unit Documented by: Sodium Chloride (Sodium Chloride) 250 mls @ 999 mls/hr IV Q15M PRN PRN Reason: HYPOTENSION Insulin Human Regular (Insulin -Regular Human 50 Unit/0.5 Ml Ml) 0 unit SQ [facility]; Protocol Last Admin: 04/11/21 15:37 Dose: Not Given Documented by: Ondansetron HCl (Ondansetron 4 Mg/2 Ml Vial) 4 mg IV Q6HP PRN PRN Reason: NAUSEA / VOMITING Pantoprazole Sodium (Pantoprazole 40mg Tablet) 40 mg PO 08 [facility]; Protocol Last Admin: 04/11/21 08:39 Dose: 40 mg Documented by: Polyethylene Glycol (Polyethyl Gly 3350 17 Gm/Dose) 17 gm PO DAILY PRN PRN Reason: CONSTIPATION Senna (Senosides 8.6 Mg Tab) 17.2 mg PO 799,1999 [facility] Last Admin: 04/11/21 08:36 Dose: 17.2 mg Documented by: Sodium Chloride (Flush Normal Saline 10 Ml) 10 ml IV [facility] Last Admin: 04/11/21 08:40 Dose: 10 ml Documented by: Sucralfate (Sucralfate 1gm/10ml Ucup) 0.1 gm FT 0800,1200,1600,1999 [facility] Last Admin: 04/11/21 17:08 Dose: 0.1 gm Documented by: Trazodone HCl (Trazodone 150 Mg Tab) 150 mg FT 1999 [facility] Last Admin: 04/10/21 19:34 Dose: 150 mg Documented by: Microbiology Results 04/02/21 15:20 Blood - Blood Aerobic Blood Culture - Final No growth in 5 days. 04/02/21 15:20 Blood - Blood Anaerobic Blood Culture - Final No growth in 5 days. 04/02/21 15:35 Blood - Blood Aerobic Blood Culture - Final No growth in 5 days. 04/02/21 15:35 Blood - Blood Anaerobic Blood Culture - Final No growth in 5 days. 04/02/21 12:47 Clean Catch Urine Ferrum Count - Final >100,000 CFU/ML. 04/02/21 12:47 Clean Catch Urine - Final Serratia Marcescens Gram Neg Keenan 04/02/21 15:21 Stool Occult Blood - Final Assessment/ Plan: Nephrology Progress Note EKG ordered yesterday for bradycardia not done yet. CPS stable without CP. PEG tube exhanged today. Holcomb exchanged today. No acute events overnight Vitals, medications blood work and imaging reviewed in the chart General: In no apparent distress, Cooperative Neck: Supple Respiratory: Clear to auscultation bilaterally Cardiovascular: No edema, Regular rate/rhythm. Hip edema. Gastrointestinal: Soft and benign, Non-distended Musculoskeletal: No clubbing, No contractures Integumentary: No rashes, No cyanosis Neurological: Normal speech Blood work reviewed in the chart. Imagings Data: EXAM DESCRIPTION: CT - Chest Abd Pelvis Wo Con - 04/02/2021 3:09 pm CLINICAL HISTORY: Cough and abdominal pain COMPARISON: October 2020 TECHNIQUE: Computed axial tomography of the chest, abdomen and pelvis was obtained. Oral contrast was given. IV contrast was not requested. All CT scans are performed using dose optimization technique as appropriate and may include automated exposure control or mA/KV adjustment according to patient size. FINDINGS: The evaluation of mediastinum, tiffany, vessels and solid organs is limited secondary to the lack of IV contrast administration No mediastinal or hilar lymphadenopathy is seen. Minimal bilateral pleural effusions. A pericardial effusion is not seen. Mild left lower lobe opacities with small area of atelectasis. The liver, spleen, pancreas, adrenals and kidneys appear grossly bri Percutaneous tube within the stomach. There is no evidence of diverticulitis. A moderate amount of stool throughout colon. Cholelithiasis Compression fractures involving T12 and L3 unchanged Holcomb catheter within the bladder IMPRESSION: Mild left lower lobe opacities probably mild pneumonia. Mild left lower lobe atelectasis Cholelithiasis Moderate amount stool within the colon EXAM DESCRIPTION: RADChest Single View04/02/2021 12:24 pm CLINICAL HISTORY: Cough COMPARISON: February 2021 FINDINGS: Mild bilateral pulmonary opacities. Heart is mildly enlarged. Postsurgical changes involve the chest Eventration left hemidiaphragm IMPRESSION: Mild bilateral pulmonary opacities probably interstitial pulmonary edema EXAM DESCRIPTION: RAD - Chest Single View - 04/10/2021 4:33 am CLINICAL HISTORY: cough, possible volume overload COMPARISON: April 09 portable TECHNIQUE: AP portable chest image was obtained 04/10/2021 4:33 am . FINDINGS: Interstitial and alveolar opacities are present generally similar to the prior study. Findings may be fractionally worse in the right base and continued monitoring is needed. Cardiomegaly remains. Upper lobe vasculature not outside of normal range. Sternotomy wires are in place. No pneumothorax or enlarging pleural effusion. No acute bony abnormality seen. No acute aortic findings suspected. IMPRESSION: Bibasilar interstitial and alveolar opacification generally similar to the prior day study. Findings of right base may be slightly worse. Cardiomegaly without significant vascular engorgement remains. Volume overload or failure remain primary considerations. Correlation is needed with any lab or physical exam findings that may suggest a concurrent right base pneumonia. Conclusions/Impression: OSCAR likely due to hypovolemia CKD III with proteinuria -No NSAIDs -Tube feeds adjusted due to persistent uremia Hyponatremia Hyperkalemia -Low potassium diet Hypocalcemia -Continue Calcitriol HTN with CKD/ CHF -Continue Amlodipine Diastolic CHF, chronic -Low sodium diet DM II with CKD & Hyperglycemia -RISS Moderate malnutrition -Maintain nutrition -Continue TF Anemia in chronic illness -Monitor H&H -Transfuse PRBC as needed A/C cystitis -Continue Augmentin Bradycardia -Repeat EKG pending
[2021-04-11] MEDS: TRAZODONE 150 MG TAB FT SCH (20:28)
[2021-04-11] MEDS: ATORVASTATIN 80 MG TAB FT SCH (20:28)
[2021-04-11] MEDS: ASPIRIN EC 81 MG TAB PO SCH (20:28)
[2021-04-12 00:03] VITALS: BMI 23.6
--- NOTE | 2021-04-12 05:49 | PN ---
Date of Progress Note: 04/10/2021 History: Mr. Anderson is 66-year-old has a history of known coronary artery disease. Came in with clark ctional bradycardia. Recent echocardiogram was normal. had seen him and recommended adequate blood pressure 132/63. O2 saturation 95% on room air. Diagnostic Studies: Creatinine is 1.68. His hemoglobin is 8.1. He is on many medications, but not on any beta-virgilio. I would continue his present regimen including aspirin, Lipitor, and Norvasc as well as , Lasix, and insulin. No need for a pacemaker. The patient is a do not resuscita te. Continue medications as they are. No beta-virgilio. We will follow as needed. ANA/ERLIN Voice ID: [id number] Report ID: [id number]
[2021-04-12 07:04] LABS: Absolute Lymphocytes (CBC) 0.9 K/uL (0.7-4.9); Basophils % 0.7 % (0-1.3); Lymphocytes % 14.9 % (15.3-44.8); MPV 10.8 fL (7.6-11.3); RBC Red Blood Cell Count 3.32 M/uL (4.33-5.43)
[2021-04-12 07:21] LABS: Albumin 2.4 g/dL (3.4-5.0); Bilirubin Total 0.4 mg/dL (0.2-1.0); Magnesium 3.1 mg/dL (1.8-2.4); Phosphorus 4.4 mg/dL (2.5-4.9); Potassium 5.3 mmol/L (3.5-5.1); Protein, Total 6.2 g/dL (6.4-8.2); Uric Acid 5.5 mg/dL (3.5-7.2)
[2021-04-12] MEDS: INSULIN -REGULAR HUMAN 50 UNIT/0.5 ML ML SQ SCH ×4 (07:30→19:47)
[2021-04-12] MEDS: SENOSIDES 8.6 MG TAB PO SCH ×2 (08:00→19:44)
[2021-04-12] MEDS: SUCRALFATE 1GM/10ML UCUP FT SCH ×4 (08:00→19:40)
[2021-04-12] MEDS: HEPARIN 5000 UNIT/ML 1 ML VIAL SQ SCH ×2 (08:00→19:40)
[2021-04-12] MEDS: GABAPENTIN 300 MG CAP FT SCH ×2 (08:35→19:45)
[2021-04-12] MEDS: ACETAMINOPHEN 500 MG TAB PO PRN ×2 (08:36→17:08)
[2021-04-12] MEDS: ESCITALOPRAM 20 MG TAB FT SCH (08:37)
[2021-04-12] MEDS: VITAMIN D 5,000 UNIT CAP PO SCH (08:37)
[2021-04-12] MEDS: CALCITROL 0.25 MCG CAP PO SCH (08:37)
[2021-04-12] MEDS: CLOPIDOGREL 75 MG TABLET FT SCH (08:38)
[2021-04-12] MEDS: AMLODIPINE 10 MG TAB FT SCH (08:38)
[2021-04-12] MEDS: FLUCONAZOLE 100 MG TAB PO SCH (08:38)
[2021-04-12] MEDS: PANTOPRAZOLE 40MG TABLET PO SCH (08:38)
[2021-04-12] MEDS: GLUCERNA 1.5 CAL 1,000 ML BOT FT SCH ×4 (08:41→19:48)
[2021-04-12] MEDS ORDERED: FUROSEMIDE 20 MG/ 2ML VIAL IV ONE ×2 (10:45→21:34)
--- NOTE | 2021-04-12 11:00 | P.PN ---
Subjective Date of Service: 04/12/21 Chief Complaint: Generalized weakness, UTI Patient seen examined at bedside, resting comfortably. Per patient is not having a good day today, has increased sputum production. Patient remains afebrile and hemodynamically stable. Review of Systems 10-point ROS is otherwise unremarkable Physical Examination - Vital Signs Temperature: 98.8 F Blood Pressure: 150/67 Pulse: 67 Respirations: 18 Pulse Ox (%): 94 - Studies Laboratory Last Values WBC 18.20 K/uL (4.3-10.9) H 04/02/21 12:31 RBC 3.27 M/uL (4.33-5.43) L 04/02/21 12:31 Hgb 7.4 g/dL (13.6-17.9) L 04/02/21 12:31 Hct 23.3 % (39.6-49.0) L 04/02/21 12:31 MCV 71.1 fL (80-100) L D 04/02/21 12:31 MCH 22.6 pg (27.0-35.0) L 04/02/21 12:31 MCHC 31.8 g/dL (32.0-36.0) L 04/02/21 12:31 RDW 16.0 % (12.1-15.2) H 04/02/21 12:31 Plt Count 109 K/uL (152-406) L 04/02/21 12:31 MPV 10.6 fL (7.6-11.3) 04/02/21 12:31 Neutrophils % 87.3 % (41.7-73.7) H 04/02/21 12:31 Lymphocytes % 6.1 % (15.3-44.8) L 04/02/21 12:31 Monocytes % 6.2 % (3.3-12.3) 04/02/21 12:31 Eosinophils % 0.2 % (0-4.4) 04/02/21 12:31 Basophils % 0.2 % (0-1.3) 04/02/21 12:31 Absolute Neutrophils 15.9 K/uL (1.8-8.0) H 04/02/21 12:31 Absolute Lymphocytes 1.1 K/uL (0.7-4.9) 04/02/21 12:31 Absolute Monocytes 1.1 K/uL (0.1-1.3) 04/02/21 12:31 Absolute Eosinophils 0.0 K/uL (0-0.5) 04/02/21 12:31 Absolute Basophils 0.0 K/uL (0-0.5) 04/02/21 12:31 Platelet Estimate Decr 04/02/21 12:31 Hypochromasia 1+ 04/02/21 12:31 Poikilocytosis 1+ 04/02/21 12:31 Anisocytosis 1+ 04/02/21 12:31 Microcytosis 1+ 04/02/21 12:31 Morphology Comment Noted (NOT SEEN) 04/02/21 12:31 PT 13.1 SECONDS (9.5-12.5) H 04/02/21 12:31 INR 1.14 04/02/21 12:31 Sodium 137 mmol/L (136-145) 04/02/21 12:31 Potassium 5.0 mmol/L (3.5-5.1) 04/02/21 12:31 Chloride 104 mmol/L (98-107) 04/02/21 12:31 Carbon Dioxide 28 mmol/L (21-32) 04/02/21 12:31 BUN 87 mg/dL (7-18) H 04/02/21 12:31 Creatinine 1.45 mg/dL (0.55-1.3) H 04/02/21 12:31 Estimated GFR 49 mL/min (=/>90) L 04/02/21 12:31 Glucose 104 mg/dL (74-106) 04/02/21 12:31 Lactic Acid 1.0 mmol/L (0.4-2.0) 04/02/21 15:35 Calcium 8.6 mg/dL (8.5-10.1) 04/02/21 12:31 Magnesium 3.2 mg/dL (1.8-2.4) H 04/02/21 12:31 Total Bilirubin 0.5 mg/dL (0.2-1.0) 04/02/21 12:31 Direct Bilirubin 0.2 mg/dL (0-0.2) 04/02/21 12:31 AST 45 U/L (15-37) H 04/02/21 12:31 ALT 113 U/L (12-78) H 04/02/21 12:31 Alkaline Phosphatase 89 U/L (45-117) 04/02/21 12:31 Rapid Troponin I 0.02 ng/mL (0.0-0.045) 04/02/21 12:31 NT-Pro-B Natriuret Pep 53423 pg/mL (<125) H 04/02/21 12:31 Serum Total Protein 6.3 g/dL (6.4-8.2) L 04/02/21 12:31 Albumin 2.7 g/dL (3.4-5.0) L 04/02/21 12:31 Globulin 3.6 g/dL (2.3-3.5) H 04/02/21 12:31 Albumin/Globulin Ratio 0.8 (1.1-1.8) L 04/02/21 12:31 Lipase 115 U/L (73-393) 04/02/21 12:31 TSH 1.480 uIU/mL (0.360-3.740) 04/02/21 12:31 TSH Cancelled 04/02/21 12:31 Free T4 1.01 ng/dL (0.76-1.46) 04/02/21 12:31 Urine pH 7.0 (5.0-7.0) 04/02/21 12:46 Ur Specific Larue 1.020 (1.005-1.030) 04/02/21 12:46 Glucose (UA)(Auto) Negative (Negative) 04/02/21 12:46 Urine Ketones Negative (Negative) 04/02/21 12:46 Urine Blood 1+ (Negative) H 04/02/21 12:46 Urine Nitrite Negative (Negative) 04/02/21 12:46 Ur Leukocyte Esterase 1+ (Negative) H 04/02/21 12:46 Urine Total Protein 3+ (Negative) H 04/02/21 12:46 SARS-CoV-2 Rap RNA(RT-PCR) Negative (NEGATIVE) 04/02/21 12:31 Smear Scan Ok (OK) 04/02/21 12:31 ABO/Rh A POSITIVE 04/02/21 12:31 Solid Phase Ab Screen Negative 04/02/21 12:31 Crossmatch See Detail 04/02/21 12:31 Assessment And Plan - Plan Physical Exam: General: Alert, In no apparent distress, Cachectic HEENT: Atraumatic, Normocephalic Neck: Supple, 2+ carotid pulse no bruit Respiratory: Bibasilar crackles Normal air movement Cardiovascular: No edema, Regular rate/rhythm Gastrointestinal: Normal bowel sounds, Other (PEG tube. Insertion site with slight erythema) Musculoskeletal: No swelling, No contractures Integumentary: No rashes, No breakdown, No significant lesion, Other (Superficial skin tear noted to left lateral thigh) Conclusions/Impression: Antibiotics: Meropenem Start: 04/02 Stop: 04/05 Augmentin Start: 04/05 Stop: 04/09 Assessment/plan Recurrent urinary tract infection Patient was recently treated for a UTI with a 10 day course of a cephalosporin. Urine culture growing Serratia sensitive to Augmentin, patient started on renally dosed Augmentin. Continue until 04/09. Urinary analysis grew yeast, continue 14 day course of oral Diflucan. Possible left lower lobe pneumonia CT chest showed a left lower lobe opacity, meropenem started due to concern for possible aspiration pneumonia any for anaerobic coverage. Patient switched to Augmentin, still has anaerobic coverage. Leukocytosis with left shift Continuing broad-spectrum IV antibiotic. Continue to monitor and watch fever curve. Diabetes, CKD stage 3, CVA Medical management per primary team Plan of care discussed Dr. Ortega Thank you for consultation Physician Review: Patient Assessed, Agree with Above Assessment and Plan
--- NOTE | 2021-04-12 11:45 | RAD REPORT ---
EXAM DESCRIPTION: RAD - Chest Single View - 04/12/2021 11:28 am CLINICAL HISTORY: Bibasilar rales. Increasing Green Sputum. COMPARISON: Chest Single View dated 04/10/2021; Chest Single View dated 04/09/2021; Chest Single View dated 04/02/2021; Abdomen 1 View (KUB) dated 02/23/2021; Chest Abd Pelvis Wo Con dated 04/02/2021 FINDINGS: Lines: None. Lungs: Similar diffuse prominence of the pulmonary interstitium. Pleural: Small bilateral effusions appear Cardiac: Moderate cardiomegaly. Bones: No acute fractures. Other: IMPRESSION: Findings most likely representing mild edema with small bilateral pleural effusion thoug h pneumonia difficult to exclude radiographically. Overall, mild worsened aeration at the right lung base compared with 04/10/2021.
--- NOTE | 2021-04-12 16:15 | P.PN ---
Subjective Date of Service: 04/12/21 Chief Complaint: Generalized weakness, UTI Subjective: Worsening (feels more tired, coughing increased and more productive. still feeling bladde pressure and back pain, Hernandez exchanged yesterday) Review of Systems 10-point ROS is otherwise unremarkable Physical Examination - Vital Signs Temperature: 97.7 F Blood Pressure: 121/42 Pulse: 44 Respirations: 21 Pulse Ox (%): 94 Assessment & Plan Physician Review Additional Text: Physical exam GEN: AOx3, fatigued HEENT: Normal conjunctiva, sclera anicteric CV: regular rate and rhythm Pulm: Non-labored respiration on room air, b/l mild crackles ABD: Soft, nondistended, PEG tube in place, no purulent drainage, suprapubic pressure/discomfort with palpation Neuro: Normal speech, normal affect Genitourinary: Hernandez catheter. mild-mod penile edema, superficial abrasion of penis Problem List acute cystitis Acute hypoxemic respiratory failure secondary to acute on chronic diastolic CHF acute metabolic encephalopathy secondary to UTI, resolved bradycardia Diabetes mellitus type 2, non-insulin dependent h/o PEG tube s/p aspiration pneumonia Anemia of chronic disease with iron deficiency Chronic Hernandez catheter with history of urinary retention, recurrent UTIs History of CAD with previous CABG Hypertension Hyperlipidemia Anemia - appears to be at baseline. s/p 2 units PRBC transfusion. Hemoglobin dropped to 7-8. Low MCV but percentage iron saturation of 50%-upper limits of normal. no evidence of bleed Acute on Chronic diastolic CHF. Daily weight and strict I\O. s/p diuresis and IVF/ free water flush. will give lasix today hyperkalemia - initially improved with kayexalate and possibly due to changing glucerna to nepro, now potassium slightly high pt with edema at hips/thighs and penile/scrotum. improving ID consulted given recurrent infections. acute cystitis with indwelling hernandez and possible LLL pneumonia. Urine culture grew Serratia and yeast. Leukocytosis resolved. Blood cultures: No growth. No fever for several days. Patient completed antibiotics. Continue Diflucan x 14 days total (yeast in urine) DM2. BS monitoring with sliding scale insulin. PEG tube in place. h/o aspiration pneumonia in the past. states he has been doing well with regular food, sees speech therapy at home-no full consistency restrictions. Patient tolerating food without any issues. PEG tube exchanged for large caliber by Dr. Paulson on 04/11 Constipation resolved. Diarrhea improved Iron deficiency anemia - no longer iron deficient. Iron replacement may be contributing to the constipation. Iron supplementation discontinued given high patient desaturates to avoid iron overload. Hx of Urinary retention. Continue hernandez care - exchange hernandez 04/11 Hx of CAD and CABG: Holding metoprolol due to bradycardia and junctional rhythm. Cardiology input appreciated. Troponin is negative Hypertension: Patient currently normotensive. Holding metoprolol due to bradycardia. Continue doxazosin and amlodipine Hyperlipidemia: Continue statin. Dispo: anticipate dc home in next 1-2 days Time Spent Managing Pts Care (In Minutes): 35
--- NOTE | 2021-04-12 17:18 | RAD REPORT ---
EXAM DESCRIPTION: CT - Abdomen Pelvis Wo Contrast - 04/12/2021 4:39 pm CLINICAL HISTORY: Abdominal pain. back pain, suprapubic pressure/discomfort COMPARISON: Abdomen Pelvis Wo Contrast dated 02/17/2021 TECHNIQUE: CT imaging of the abdomen and pelvis was performed without contrast. Solid organ, bowel a nd vascular assessment is limited due to lack of IV and oral contrast. All CT scans are performed using dose optimization technique as appropriate and may include automated exposure control or mA/KV adjustment according to patient size. FINDINGS: Trace left pleural fluid with mild opacity in the posterior left lung base probably atelec tasis or infiltrate.Small to moderate right pleural effusion. Gastrostomy tube is in place.The liver, spleen, pancreas, adrenal glands and kidneys show no acute pr ocess. Mild free fluid is seen abdomen and pelvis. No bowel obstruction or free air. Mild colonic wall thick ening is noted particularly the descending colon and rectosigmoid colon. Generalized mild anasarca pa ttern is present. Air is present in the urinary bladder with a Holcomb catheter in place.Left total hip arthroplasty is p resent. Mild compression deformities are present involving T12 and L3, chronic in appearance. IMPRESSION: Mild fluid retention pattern is present with small bilateral pleural effusions, larger o n the right. Anasarca is present with mild free fluid in the abdomen and pelvis. Mild colonic wall thickening is seen involving the descending colon as well as the rectosigmoid colon . This may indicate a mild colitis. A limited non-contrast examination was performed as detailed.
[2021-04-12] MEDS: TRAZODONE 150 MG TAB FT SCH (19:39)
[2021-04-12] MEDS: ASPIRIN EC 81 MG TAB PO SCH (19:43)
[2021-04-12] MEDS: DOXAZOSIN 2 MG TAB FT SCH (19:45)
[2021-04-12] MEDS: ATORVASTATIN 80 MG TAB FT SCH (19:45)
--- NOTE | 2021-04-12 21:41 | P.PN ---
Date of Service: 04/12/21 Vital Signs Temp Pulse Resp BP Pulse Ox 97.7 F 68 21 H 137/57 L 94 04/12/21 16:15 04/12/21 19:45 04/12/21 16:15 04/12/21 19:45 04/12/21 16:15 Medications Acetaminophen (Acetaminophen 500 Mg Tab) 500 mg PO Q4HP PRN PRN Reason: TEMP > 100' F Last Admin: 04/12/21 17:08 Dose: 500 mg Documented by: Albuterol Sulfate (Albuterol 2.5 Mg/3 Ml Neb [place]) 2.5 mg NEB Q6H PRN PRN Reason: SHORTNESS OF BREATH Amlodipine Besylate (Amlodipine 10 Mg Tab) 10 mg FT 799 [facility] Last Admin: 04/12/21 08:38 Dose: 10 mg Documented by: Aspirin (Aspirin Ec 81 Mg Tab) 81 mg PO 1999 [facility] Last Admin: 04/12/21 19:43 Dose: 81 mg Documented by: Atorvastatin Calcium (Atorvastatin 80 Mg Tab) 80 mg 1999 [facility] Last Admin: 04/12/21 19:45 Dose: 80 mg Documented by: Benzonatate (Benzonatate 100 Mg Cap) 100 mg PO TID PRN PRN Reason: COUGH Calcitriol (Calcitrol 0.25 Mcg Cap) 0.5 mcg PO DAILY [facility] Last Admin: 04/12/21 08:37 Dose: 0.5 mcg Documented by: Cholecalciferol (Vitamin D 5,000 Unit Cap) 5,000 unit PO DAILY [facility] Last Admin: 04/12/21 08:37 Dose: 5,000 unit Documented by: Clopidogrel Bisulfate (Clopidogrel 75 Mg Tablet) 75 mg FT 08 [facility] Last Admin: 04/12/21 08:38 Dose: 75 mg Documented by: Dextrose (D50w 25 Gm/50 Ml Syringe) 12.5 gm IV PRN PRN; Protocol PRN Reason: HYPOGLYCEMIA Doxazosin Mesylate (Doxazosin 2 Mg Tab) 2 mg FT 1999 [facility] Last Admin: 04/12/21 19:45 Dose: 2 mg Documented by: Enteral Nutritional Formula (Glucerna 1.5 Higinio 1,000 Ml Bot) 300 ml FT QID [facility] Last Admin: 04/12/21 19:48 Dose: 220 ml Documented by: Escitalopram Oxalate (Escitalopram 20 Mg Tab) 30 mg FT 08 [facility] Last Admin: 04/12/21 08:37 Dose: 30 mg Documented by: Fluconazole (Fluconazole 100 Mg Tab) 200 mg PO 0800 [facility] Stop: 04/19/21 08:01 Last Admin: 04/12/21 08:38 Dose: 200 mg Documented by: Furosemide (Furosemide 20 Mg/ 2ml Vial) 20 mg IV 1X ONE Stop: 04/12/21 21:35 Gabapentin (Gabapentin 300 Mg Cap) 300 mg FT [facility] Last Admin: 04/12/21 19:45 Dose: 300 mg Documented by: Glucagon (Glucagon 1 Mg/Vial) 1 mg IM 1X PRN; Protocol PRN Reason: HYPOGLYCEMIA Guaifenesin (Guaifenesin 100 Mg/5 Ml Ucup) 100 mg FT BID PRN PRN Reason: COUGH Heparin Sodium (Porcine) (Heparin 5000 Unit/Ml 1 Ml Vial) 5,000 unit SQ [facility] Last Admin: 04/12/21 19:40 Dose: 5,000 unit Documented by: Sodium Chloride (Sodium Chloride) 250 mls @ 999 mls/hr IV Q15M PRN PRN Reason: HYPOTENSION Insulin Human Regular (Insulin -Regular Human 50 Unit/0.5 Ml Ml) 0 unit SQ ACHS [facility]; Protocol Last Admin: 04/12/21 19:47 Dose: Not Given Documented by: Ondansetron HCl (Ondansetron 4 Mg/2 Ml Vial) 4 mg IV Q6HP PRN PRN Reason: NAUSEA / VOMITING Pantoprazole Sodium (Pantoprazole 40mg Tablet) 40 mg PO 0800 [facility]; Protocol Last Admin: 04/12/21 08:38 Dose: 40 mg Documented by: Polyethylene Glycol (Polyethyl Gly 3350 17 Gm/Dose) 17 gm PO DAILY PRN PRN Reason: CONSTIPATION Senna (Senosides 8.6 Mg Tab) 17.2 mg PO 799,1999 [facility] Last Admin: 04/12/21 19:44 Dose: Not Given Documented by: Sodium Chloride (Flush Normal Saline 10 Ml) 10 ml IV [facility] Last Admin: 04/12/21 19:50 Dose: 10 ml Documented by: Sucralfate (Sucralfate 1gm/10ml Ucup) 0.1 gm FT 0800,1200,1600,1999 [facility] Last Admin: 04/12/21 19:40 Dose: 0.1 gm Documented by: Trazodone HCl (Trazodone 150 Mg Tab) 150 mg FT 1999 [facility] Last Admin: 04/12/21 19:39 Dose: 150 mg Documented by: Microbiology Results 04/02/21 15:20 Blood - Blood Aerobic Blood Culture - Final No growth in 5 days. 04/02/21 15:20 Blood - Blood Anaerobic Blood Culture - Final No growth in 5 days. 04/02/21 15:35 Blood - Blood Aerobic Blood Culture - Final No growth in 5 days. 04/02/21 15:35 Blood - Blood Anaerobic Blood Culture - Final No growth in 5 days. 04/02/21 12:47 Clean Catch Urine [place] Count - Final >100,000 CFU/ML. 04/02/21 12:47 Clean Catch Urine - Final Serratia Marcescens Gram Neg Ke[place] 04/02/21 15:21 Stool Occult Blood - Final Assessment/ Plan: Nephrology Progress Note reports increased green sputum production. Patients reports his bladder as feeling full. No acute events overnight Vitals, medications blood work and imaging reviewed in the chart General: In no apparent distress, Cooperative Neck: Supple Respiratory: Bibasilar rales Cardiovascular: No edema, Regular rate/rhythm. Hip edema. Gastrointestinal: Soft and benign, Non-distended. PEG. Musculoskeletal: No clubbing, No contractures Integumentary: No rashes, No cyanosis Neurological: Normal speech Blood work reviewed in the chart. Imagings Data: EXAM DESCRIPTION: CT - Chest Abd Pelvis Wo Con - 04/02/2021 3:09 pm CLINICAL HISTORY: Cough and abdominal pain COMPARISON: October 2020 TECHNIQUE: Computed axial tomography of the chest, abdomen and pelvis was obtained. Oral contrast was given. IV contrast was not requested. All CT scans are performed using dose optimization technique as appropriate and may include automated exposure control or mA/KV adjustment according to patient size. FINDINGS: The evaluation of mediastinum, tiffany, vessels and solid organs is limited secondary to the lack of IV contrast administration No mediastinal or hilar lymphadenopathy is seen. Minimal bilateral pleural effusions. A pericardial effusion is not seen. Mild left lower lobe opacities with small area of atelectasis. The liver, spleen, pancreas, adrenals and kidneys appear grossly bri Percutaneous tube within the stomach. There is no evidence of diverticulitis. A moderate amount of stool throughout colon. Cholelithiasis Compression fractures involving T12 and L3 unchanged Holcomb catheter within the bladder IMPRESSION: Mild left lower lobe opacities probably mild pneumonia. Mild left lower lobe atelectasis Cholelithiasis Moderate amount stool within the colon EXAM DESCRIPTION: RADChest Single View04/02/2021 12:24 pm CLINICAL HISTORY: Cough COMPARISON: February 2021 FINDINGS: Mild bilateral pulmonary opacities. Heart is mildly enlarged. Postsurgical changes involve the chest Eventration left hemidiaphragm IMPRESSION: Mild bilateral pulmonary opacities probably interstitial pulmonary edema EXAM DESCRIPTION: RAD - Chest Single View - 04/10/2021 4:33 am CLINICAL HISTORY: cough, possible volume overload COMPARISON: April 09 portable TECHNIQUE: AP portable chest image was obtained 04/10/2021 4:33 am . FINDINGS: Interstitial and alveolar opacities are present generally similar to the prior study. Findings may be fractionally worse in the right base and continued monitoring is needed. Cardiomegaly remains. Upper lobe vasculature not outside of normal range. Sternotomy wires are in place. No pneumothorax or enlarging pleural effusion. No acute bony abnormality seen. No acute aortic findings suspected. IMPRESSION: Bibasilar interstitial and alveolar opacification generally similar to the prior day study. Findings of right base may be slightly worse. Cardiomegaly without significant vascular engorgement remains. Volume overload or failure remain primary considerations. Correlation is needed with any lab or physical exam findings that may suggest a concurrent right base pneumonia. Conclusions/Impression: OSCAR likely due to hypovolemia CKD III with proteinuria -No NSAIDs Hyponatremia Hyperkalemia -Low potassium diet -Give Lasix -Patient declines Kayexalate Hypocalcemia -Continue Calcitriol HTN with CKD/ CHF -Continue Amlodipine Diastolic CHF, chronic -Low sodium diet -Lasix IV X2 -Repeat CXR DM II with CKD & Hyperglycemia -RISS Moderate malnutrition -Maintain nutrition -Continue TF Anemia in chronic illness -Monitor H&H -Transfuse PRBC as needed A/C cystitis -Abx completed Case reviewed with Dr. Carrera
--- NOTE | 2021-04-13 06:07 | P.PN ---
Subjective Date of Service: 04/13/21 Chief Complaint: Generalized weakness, UTI Subjective: Improving (overall feels better today, breathing more comfortably, coughing less, appetite significantly improved. Responded well to the Lasix yesterday, still feels fullness in lower abdomen as though he needs to urinate. Hernandez remains in place and draining. Continues with some lower back pain.) Physical Examination - Vital Signs Temperature: 98.2 F Blood Pressure: 146/57 Pulse: 65 Respirations: 17 Pulse Ox (%): 92 Assessment & Plan Physician Review Additional Text: Physical exam GEN: AOx3, more alert/awake HEENT: Normal conjunctiva, sclera anicteric CV: regular rate and rhythm Pulm: Non-labored respiration on room air, b/l mild crackles ABD: Soft, nondistended, PEG tube in place, no purulent drainage, suprapubic pressure/discomfort with palpation Neuro: Normal speech, normal affect Genitourinary: Hernandez catheter. mild-mod penile edema, superficial abrasion of penis Problem List acute cystitis Acute hypoxemic respiratory failure secondary to acute on chronic diastolic CHF acute metabolic encephalopathy secondary to UTI, resolved bradycardia Diabetes mellitus type 2, non-insulin dependent h/o PEG tube s/p aspiration pneumonia Anemia of chronic disease with iron deficiency Chronic Hernandez catheter with history of urinary retention, recurrent UTIs History of CAD with previous CABG Hypertension Hyperlipidemia Anemia - appears to be at baseline. s/p 2 units PRBC transfusion. Hemoglobin dropped to 7-8. Low MCV but percentage iron saturation of 50%-upper limits of normal. no evidence of bleed Acute on Chronic diastolic CHF. Daily weight and strict I\O. s/p diuresis and IVF/ free water flush. lasix given 04/12, with some hypernatremia now hyperkalemia - initially improved with kayexalate and possibly due to changing glucerna to nepro, now potassium slightly high pt with edema at hips/thighs and penile/scrotum. improving ID consulted given recurrent infections. acute cystitis with indwelling hernandez and possible LLL pneumonia. Urine culture grew Serratia and yeast. Leukocytosis resolved. Blood cultures: No growth. No fever for several days. Patient completed antibiotics. Continue Diflucan x 14 days total (yeast in urine). ID recommends no further antibiotics at this time DM2. BS monitoring with sliding scale insulin. PEG tube in place. h/o aspiration pneumonia in the past. states he has been doing well with regular food, sees speech therapy at home-no full consistency restrictions. Patient tolerating food without any issues. PEG tube exchanged for large caliber by Dr. Paulson on 04/11 Constipation resolved. Diarrhea improved Iron deficiency anemia - no longer iron deficient. Iron replacement may be contributing to the constipation. Iron supplementation discontinued given high patient desaturates to avoid iron overload. Hx of Urinary retention. Continue hernandez care - exchanged hernandez 04/11 Hx of CAD and CABG: Holding metoprolol due to bradycardia and junctional rhythm. Cardiology agreed. Troponin is negative Hypertension: Patient currently normotensive. Holding metoprolol due to bradycardia. Continue doxazosin and amlodipine Hyperlipidemia: Continue statin. CT abd/pelvis done evening of 04/12 given abd discomfort, diarrhea, back pain, suprapubic pressure, possible mild colitis, +anasarca, no other acute findings Dispo: anticipate dc home in next 2-3 days Time Spent Managing Pts Care (In Minutes): 35
[2021-04-13 06:59] LABS: C-Reactive Protein 50.5 mg/L (<3.00); Magnesium 3.3 mg/dL (1.8-2.4); Potassium 5.3 mmol/L (3.5-5.1)
[2021-04-13 07:24] LABS: Basophils % 0.7 % (0-1.3); Hematocrit 23.2 % (39.6-49.0); Lymphocytes % 11.1 % (15.3-44.8); MPV 10.3 fL (7.6-11.3); RBC Red Blood Cell Count 3.05 M/uL (4.33-5.43)
[2021-04-13] MEDS: INSULIN -REGULAR HUMAN 50 UNIT/0.5 ML ML SQ SCH ×4 (07:30→21:00)
[2021-04-13] MEDS: ESCITALOPRAM 20 MG TAB FT SCH (08:32)
[2021-04-13] MEDS: SUCRALFATE 1GM/10ML UCUP FT SCH ×4 (08:32→20:01)
[2021-04-13] MEDS: FLUCONAZOLE 100 MG TAB PO SCH (08:33)
[2021-04-13] MEDS: VITAMIN D 5,000 UNIT CAP PO SCH (08:33)
[2021-04-13] MEDS: CLOPIDOGREL 75 MG TABLET FT SCH (08:33)
[2021-04-13] MEDS: GABAPENTIN 300 MG CAP FT SCH ×2 (08:33→20:00)
[2021-04-13] MEDS: CALCITROL 0.25 MCG CAP PO SCH (08:33)
[2021-04-13] MEDS: SENOSIDES 8.6 MG TAB PO SCH ×2 (08:33→20:00)
[2021-04-13] MEDS: PANTOPRAZOLE 40MG TABLET PO SCH (08:34)
[2021-04-13] MEDS: AMLODIPINE 10 MG TAB FT SCH (08:34)
[2021-04-13] MEDS: GLUCERNA 1.5 CAL 1,000 ML BOT FT SCH ×3 (08:35→20:02)
[2021-04-13] MEDS: HEPARIN 5000 UNIT/ML 1 ML VIAL SQ SCH ×2 (08:35→20:00)
[2021-04-13] MEDS ORDERED: GLUCERNA 1.5 CAL 1,000 ML BOT FT SCH ×2 (10:24→17:00)
[2021-04-13] MEDS: ACETAMINOPHEN 500 MG TAB PO PRN (11:46)
--- NOTE | 2021-04-13 12:09 | P.PN ---
Subjective Date of Service: 04/13/21 Chief Complaint: Generalized weakness, UTI Patient seen examined at bedside, resting comfortably. Urine culture growing mixed alla, on no clinical need for antibiotics at this time. Review of Systems 10-point ROS is otherwise unremarkable Physical Examination - Vital Signs Temperature: 98.7 F Blood Pressure: 150/62 Pulse: 65 Respirations: 17 Pulse Ox (%): 95 - Studies Laboratory Last Values WBC 18.20 K/uL (4.3-10.9) H 04/02/21 12:31 RBC 3.27 M/uL (4.33-5.43) L 04/02/21 12:31 Hgb 7.4 g/dL (13.6-17.9) L 04/02/21 12:31 Hct 23.3 % (39.6-49.0) L 04/02/21 12:31 MCV 71.1 fL (80-100) L D 04/02/21 12:31 MCH 22.6 pg (27.0-35.0) L 04/02/21 12:31 MCHC 31.8 g/dL (32.0-36.0) L 04/02/21 12:31 RDW 16.0 % (12.1-15.2) H 04/02/21 12:31 Plt Count 109 K/uL (152-406) L 04/02/21 12:31 MPV 10.6 fL (7.6-11.3) 04/02/21 12:31 Neutrophils % 87.3 % (41.7-73.7) H 04/02/21 12:31 Lymphocytes % 6.1 % (15.3-44.8) L 04/02/21 12:31 Monocytes % 6.2 % (3.3-12.3) 04/02/21 12:31 Eosinophils % 0.2 % (0-4.4) 04/02/21 12:31 Basophils % 0.2 % (0-1.3) 04/02/21 12:31 Absolute Neutrophils 15.9 K/uL (1.8-8.0) H 04/02/21 12:31 Absolute Lymphocytes 1.1 K/uL (0.7-4.9) 04/02/21 12:31 Absolute Monocytes 1.1 K/uL (0.1-1.3) 04/02/21 12:31 Absolute Eosinophils 0.0 K/uL (0-0.5) 04/02/21 12:31 Absolute Basophils 0.0 K/uL (0-0.5) 04/02/21 12:31 Platelet Estimate Decr 04/02/21 12:31 Hypochromasia 1+ 04/02/21 12:31 Poikilocytosis 1+ 04/02/21 12:31 Anisocytosis 1+ 04/02/21 12:31 Microcytosis 1+ 04/02/21 12:31 Morphology Comment Noted (NOT SEEN) 04/02/21 12:31 PT 13.1 SECONDS (9.5-12.5) H 04/02/21 12:31 INR 1.14 04/02/21 12:31 Sodium 137 mmol/L (136-145) 04/02/21 12:31 Potassium 5.0 mmol/L (3.5-5.1) 04/02/21 12:31 Chloride 104 mmol/L (98-107) 04/02/21 12:31 Carbon Dioxide 28 mmol/L (21-32) 04/02/21 12:31 BUN 87 mg/dL (7-18) H 04/02/21 12:31 Creatinine 1.45 mg/dL (0.55-1.3) H 04/02/21 12:31 Estimated GFR 49 mL/min (=/>90) L 04/02/21 12:31 Glucose 104 mg/dL (74-106) 04/02/21 12:31 Lactic Acid 1.0 mmol/L (0.4-2.0) 04/02/21 15:35 Calcium 8.6 mg/dL (8.5-10.1) 04/02/21 12:31 Magnesium 3.2 mg/dL (1.8-2.4) H 04/02/21 12:31 Total Bilirubin 0.5 mg/dL (0.2-1.0) 04/02/21 12:31 Direct Bilirubin 0.2 mg/dL (0-0.2) 04/02/21 12:31 AST 45 U/L (15-37) H 04/02/21 12:31 ALT 113 U/L (12-78) H 04/02/21 12:31 Alkaline Phosphatase 89 U/L (45-117) 04/02/21 12:31 Rapid Troponin I 0.02 ng/mL (0.0-0.045) 04/02/21 12:31 NT-Pro-B Natriuret Pep 79400 pg/mL (<125) H 04/02/21 12:31 Serum Total Protein 6.3 g/dL (6.4-8.2) L 04/02/21 12:31 Albumin 2.7 g/dL (3.4-5.0) L 04/02/21 12:31 Globulin 3.6 g/dL (2.3-3.5) H 04/02/21 12:31 Albumin/Globulin Ratio 0.8 (1.1-1.8) L 04/02/21 12:31 Lipase 115 U/L (73-393) 04/02/21 12:31 TSH 1.480 uIU/mL (0.360-3.740) 04/02/21 12:31 TSH Cancelled 04/02/21 12:31 Free T4 1.01 ng/dL (0.76-1.46) 04/02/21 12:31 Urine pH 7.0 (5.0-7.0) 04/02/21 12:46 Ur Specific [place] 1.020 (1.005-1.030) 04/02/21 12:46 Glucose (UA)(Auto) Negative (Negative) 04/02/21 12:46 Urine Ketones Negative (Negative) 04/02/21 12:46 Urine Blood 1+ (Negative) H 04/02/21 12:46 Urine Nitrite Negative (Negative) 04/02/21 12:46 Ur Leukocyte Esterase 1+ (Negative) H 04/02/21 12:46 Urine Total Protein 3+ (Negative) H 04/02/21 12:46 SARS-CoV-2 Rap RNA(RT-PCR) Negative (NEGATIVE) 04/02/21 12:31 Smear Scan Ok (OK) 04/02/21 12:31 ABO/Rh A POSITIVE 04/02/21 12:31 Solid Phase Ab Screen Negative 04/02/21 12:31 Crossmatch See Detail 04/02/21 12:31 Assessment And Plan - Plan Physical Exam: General: Alert, In no apparent distress, Cachectic HEENT: Atraumatic, Normocephalic Neck: Supple, 2+ carotid pulse no bruit Respiratory: Bibasilar crackles Normal air movement Cardiovascular: No edema, Regular rate/rhythm Gastrointestinal: Normal bowel sounds, Other (PEG tube. Insertion site with slight erythema) Musculoskeletal: No swelling, No contractures Integumentary: No rashes, No breakdown, No significant lesion, Other (Superficial skin tear noted to left lateral thigh) Conclusions/Impression: Antibiotics: Meropenem Start: 04/02 Stop: 04/05 Augmentin Start: 04/05 Stop: 04/09 Assessment/plan Recurrent urinary tract infection Patient was recently treated for a UTI with a 10 day course of a cephalosporin. Urine culture growing Serratia sensitive to Augmentin, patient started on renally dosed Augmentin. Continue until 04/09. Urinary analysis grew yeast, continue 14 day course of oral Diflucan. Possible left lower lobe pneumonia CT chest showed a left lower lobe opacity, meropenem started due to concern for possible aspiration pneumonia any for anaerobic coverage. Patient switched to Augmentin, still has anaerobic coverage. Leukocytosis with left shift Continuing broad-spectrum IV antibiotic. Continue to monitor and watch fever curve. Diabetes, CKD stage 3, CVA Medical management per primary team Plan of care discussed Dr. Ortega Thank you for consultation Physician Review: Patient Assessed, Agree with Above Assessment and Plan
[2021-04-13] MEDS: ALBUTEROL 2.5 MG/3 ML NEB SOL NEB PRN (15:13)
[2021-04-13] MEDS: guaiFENesin 100 MG/5 ML UCUP FT PRN (17:06)
[2021-04-13] MEDS: LIDOCAINE 4% PATCH TOP SCH (17:07)
[2021-04-13] MEDS: DOXAZOSIN 2 MG TAB FT SCH (19:59)
[2021-04-13] MEDS: TRAZODONE 150 MG TAB FT SCH (19:59)
[2021-04-13] MEDS: ASPIRIN EC 81 MG TAB PO SCH (20:00)
[2021-04-13] MEDS: ATORVASTATIN 80 MG TAB FT SCH (20:00)
--- NOTE | 2021-04-13 20:29 | P.PN ---
Date of Service: 04/13/21 Vital Signs Temp Pulse Resp BP Pulse Ox 98.2 F 62 17 109/49 L 92 04/13/21 17:13 04/13/21 19:59 04/13/21 17:13 04/13/21 19:59 04/13/21 17:13 Medications Acetaminophen (Acetaminophen 500 Mg Tab) 500 mg PO Q4HP PRN PRN Reason: TEMP > 100' F Last Admin: 04/13/21 11:46 Dose: 500 mg Documented by: Albuterol Sulfate (Albuterol 2.5 Mg/3 Ml Neb [place]) 2.5 mg NEB Q6H PRN PRN Reason: SHORTNESS OF BREATH Last Admin: 04/13/21 15:13 Dose: 2.5 mg Documented by: Amlodipine Besylate (Amlodipine 10 Mg Tab) 10 mg FT 08 [facility] Last Admin: 04/13/21 08:34 Dose: 10 mg Documented by: Aspirin (Aspirin Ec 81 Mg Tab) 81 mg PO 1999 [facility] Last Admin: 04/13/21 20:00 Dose: 81 mg Documented by: Atorvastatin Calcium (Atorvastatin 80 Mg Tab) 80 mg 1999 [facility] Last Admin: 04/13/21 20:00 Dose: 80 mg Documented by: Benzonatate (Benzonatate 100 Mg Cap) 100 mg PO TID PRN PRN Reason: COUGH Calcitriol (Calcitrol 0.25 Mcg Cap) 0.5 mcg PO DAILY [facility] Last Admin: 04/13/21 08:33 Dose: 0.5 mcg Documented by: Cholecalciferol (Vitamin D 5,000 Unit Cap) 5,000 unit PO DAILY [facility] Last Admin: 04/13/21 08:33 Dose: 5,000 unit Documented by: Clopidogrel Bisulfate (Clopidogrel 75 Mg Tablet) 75 mg FT 08 [facility] Last Admin: 04/13/21 08:33 Dose: 75 mg Documented by: Dextrose (D50w 25 Gm/50 Ml Syringe) 12.5 gm IV PRN PRN; Protocol PRN Reason: HYPOGLYCEMIA Doxazosin Mesylate (Doxazosin 2 Mg Tab) 2 mg FT 1999 [facility] Last Admin: 04/13/21 19:59 Dose: Not Given Documented by: Enteral Nutritional Formula (Glucerna 1.5 Higinio 1,000 Ml Bot) 150 ml FT QID [facility] Last Admin: 04/13/21 20:02 Dose: Not Given Documented by: Escitalopram Oxalate (Escitalopram 20 Mg Tab) 30 mg FT 08 [facility] Last Admin: 04/13/21 08:32 Dose: 30 mg Documented by: Fluconazole (Fluconazole 100 Mg Tab) 200 mg PO 0800 [facility] Stop: 04/19/21 08:01 Last Admin: 04/13/21 08:33 Dose: 200 mg Documented by: Gabapentin (Gabapentin 300 Mg Cap) 300 mg FT [facility] Last Admin: 04/13/21 20:00 Dose: 300 mg Documented by: Glucagon (Glucagon 1 Mg/Vial) 1 mg IM 1X PRN; Protocol PRN Reason: HYPOGLYCEMIA Guaifenesin (Guaifenesin 100 Mg/5 Ml Ucup) 100 mg FT BID PRN PRN Reason: COUGH Last Admin: 04/13/21 17:06 Dose: 100 mg Documented by: Heparin Sodium (Porcine) (Heparin 5000 Unit/Ml 1 Ml Vial) 5,000 unit SQ [facility] Last Admin: 04/13/21 20:00 Dose: Not Given Documented by: Sodium Chloride (Sodium Chloride) 250 mls @ 999 mls/hr IV Q15M PRN PRN Reason: HYPOTENSION Insulin Human Regular (Insulin -Regular Human 50 Unit/0.5 Ml Ml) 0 unit SQ ACHS [facility]; Protocol Last Admin: 04/13/21 16:30 Dose: 3 unit Documented by: Lidocaine (Lidocaine 4% Patch) 2 patch TOP DAILY [facility] Last Admin: 04/13/21 17:07 Dose: 2 patch Documented by: Ondansetron HCl (Ondansetron 4 Mg/2 Ml Vial) 4 mg IV Q6HP PRN PRN Reason: NAUSEA / VOMITING Pantoprazole Sodium (Pantoprazole 40mg Tablet) 40 mg PO 08 [facility]; Protocol Last Admin: 04/13/21 08:34 Dose: 40 mg Documented by: Polyethylene Glycol (Polyethyl Gly 3350 17 Gm/Dose) 17 gm PO DAILY PRN PRN Reason: CONSTIPATION Senna (Senosides 8.6 Mg Tab) 17.2 mg PO [facility] Last Admin: 04/13/21 20:00 Dose: Not Given Documented by: Sodium Chloride (Flush Normal Saline 10 Ml) 10 ml IV [facility] Last Admin: 04/13/21 20:16 Dose: 10 ml Documented by: Sucralfate (Sucralfate 1gm/10ml Ucup) 0.1 gm FT 0800,1200,1600,2000 [facility] Last Admin: 04/13/21 20:01 Dose: 0.1 gm Documented by: Trazodone HCl (Trazodone 150 Mg Tab) 150 mg FT 1999 [facility] Last Admin: 04/13/21 19:59 Dose: 150 mg Documented by: Microbiology Results 04/02/21 15:20 Blood - Blood Aerobic Blood Culture - Final No growth in 5 days. 04/02/21 15:20 Blood - Blood Anaerobic Blood Culture - Final No growth in 5 days. 04/02/21 15:35 Blood - Blood Aerobic Blood Culture - Final No growth in 5 days. 04/02/21 15:35 Blood - Blood Anaerobic Blood Culture - Final No growth in 5 days. 04/02/21 12:47 Clean Catch Urine Siren Count - Final >100,000 CFU/ML. 04/02/21 12:47 Clean Catch Urine - Final Serratia Marcescens Gram Neg Keenan 04/02/21 15:21 Stool Occult Blood - Final Assessment/ Plan: Nephrology Progress Note reports increased green sputum production. Patients reports his bladder as feeling full. No acute events overnight Vitals, medications blood work and imaging reviewed in the chart General: In no apparent distress, Cooperative Neck: Supple Respiratory: Bibasilar rales Cardiovascular: No edema, Regular rate/rhythm. Hip edema. Gastrointestinal: Soft and benign, Non-distended. PEG. Musculoskeletal: No clubbing, No contractures Integumentary: No rashes, No cyanosis Neurological: Normal speech Blood work reviewed in the chart. Imagings Data: EXAM DESCRIPTION: CT - Chest Abd Pelvis Wo Con - 04/02/2021 3:09 pm CLINICAL HISTORY: Cough and abdominal pain COMPARISON: October 2020 TECHNIQUE: Computed axial tomography of the chest, abdomen and pelvis was obtained. Oral contrast was given. IV contrast was not requested. All CT scans are performed using dose optimization technique as appropriate and may include automated exposure control or mA/KV adjustment according to patient size. FINDINGS: The evaluation of mediastinum, tiffany, vessels and solid organs is limited secondary to the lack of IV contrast administration No mediastinal or hilar lymphadenopathy is seen. Minimal bilateral pleural effusions. A pericardial effusion is not seen. Mild left lower lobe opacities with small area of atelectasis. The liver, spleen, pancreas, adrenals and kidneys appear grossly bri Percutaneous tube within the stomach. There is no evidence of diverticulitis. A moderate amount of stool throughout colon. Cholelithiasis Compression fractures involving T12 and L3 unchanged Holcomb catheter within the bladder IMPRESSION: Mild left lower lobe opacities probably mild pneumonia. Mild left lower lobe atelectasis Cholelithiasis Moderate amount stool within the colon EXAM DESCRIPTION: RADChest Single View04/02/2021 12:24 pm CLINICAL HISTORY: Cough COMPARISON: February 2021 FINDINGS: Mild bilateral pulmonary opacities. Heart is mildly enlarged. Postsurgical changes involve the chest Eventration left hemidiaphragm IMPRESSION: Mild bilateral pulmonary opacities probably interstitial pulmonary edema EXAM DESCRIPTION: RAD - Chest Single View - 04/10/2021 4:33 am CLINICAL HISTORY: cough, possible volume overload COMPARISON: April 09 portable TECHNIQUE: AP portable chest image was obtained 04/10/2021 4:33 am . FINDINGS: Interstitial and alveolar opacities are present generally similar to the prior study. Findings may be fractionally worse in the right base and continued monitoring is needed. Cardiomegaly remains. Upper lobe vasculature not outside of normal range. Sternotomy wires are in place. No pneumothorax or enlarging pleural effusion. No acute bony abnormality seen. No acute aortic findings suspected. IMPRESSION: Bibasilar interstitial and alveolar opacification generally similar to the prior day study. Findings of right base may be slightly worse. Cardiomegaly without significant vascular engorgement remains. Volume overload or failure remain primary considerations. Correlation is needed with any lab or physical exam findings that may suggest a concurrent right base pneumonia. Conclusions/Impression: OSCAR likely due to hypovolemia CKD III with proteinuria -No NSAIDs Hyponatremia/ Hypernatremia -Increase free water through PEG Hyperkalemia -Low potassium diet -Patient declines Kayexalate Hypocalcemia -Continue Calcitriol HTN with CKD/ CHF -Continue Amlodipine Diastolic CHF, chronic -Low sodium diet DM II with CKD & Hyperglycemia -RISS Moderate malnutrition -Maintain nutrition -Continue TF Anemia in chronic illness -Monitor H&H -Transfuse PRBC as needed A/C cystitis -Abx completed -Continue Diflucan Case reviewed with Dr. Carrera
[2021-04-14 05:31] LABS: Absolute Lymphocytes (CBC) 1.1 K/uL (0.7-4.9); Basophils % 0.6 % (0-1.3); Hematocrit 23.4 % (39.6-49.0); Lymphocytes % 13.4 % (15.3-44.8); MPV 10.2 fL (7.6-11.3); RBC Red Blood Cell Count 3.09 M/uL (4.33-5.43)
[2021-04-14 05:51] LABS: Albumin 2.5 g/dL (3.4-5.0); Bilirubin Total 0.3 mg/dL (0.2-1.0); C-Reactive Protein 50.5 mg/L (<3.00); Magnesium 3.3 mg/dL (1.8-2.4); Potassium 4.9 mmol/L (3.5-5.1); Protein, Total 6.2 g/dL (6.4-8.2)
[2021-04-14 05:54] VITALS: TEMP 98.4
--- NOTE | 2021-04-14 05:55 | P.PN ---
Subjective Date of Service: 04/14/21 Chief Complaint: Generalized weakness, UTI Physical Examination - Vital Signs Temperature: 98.4 F Blood Pressure: 141/61 Pulse: 62 Respirations: 18 Pulse Ox (%): 95 Assessment & Plan Physician Review: Patient Assessed, Agree with Above Assessment and Plan Physician Review Additional Text: Physical exam GEN: AOx3, more alert/awake HEENT: Normal conjunctiva, sclera anicteric CV: regular rate and rhythm Pulm: Non-labored respiration on room air, b/l mild crackles ABD: Soft, nondistended, PEG tube in place, no purulent drainage, suprapubic pressure/discomfort with palpation Neuro: Normal speech, normal affect Genitourinary: Hernandez catheter. mild-mod penile edema, superficial abrasion of penis Problem List acute cystitis Acute hypoxemic respiratory failure secondary to acute on chronic diastolic CHF acute metabolic encephalopathy secondary to UTI, resolved bradycardia Diabetes mellitus type 2, non-insulin dependent h/o PEG tube s/p aspiration pneumonia Anemia of chronic disease with iron deficiency Chronic Hernandez catheter with history of urinary retention, recurrent UTIs History of CAD with previous CABG Hypertension Hyperlipidemia Anemia - appears to be at baseline. s/p 2 units PRBC transfusion. Hemoglobin dropped to 7-8. Low MCV but percentage iron saturation of 50%-upper limits of normal. no evidence of bleed Acute on Chronic diastolic CHF. Daily weight and strict I\O. s/p diuresis and IVF/ free water flush. lasix given 04/12, with some hypernatremia now hyperkalemia - initially improved with kayexalate and possibly due to changing glucerna to nepro, now potassium slightly high pt with edema at hips/thighs and penile/scrotum. improving ID consulted given recurrent infections. acute cystitis with indwelling hernandez and possible LLL pneumonia. Urine culture grew Serratia and yeast. Leukocytosis resolved. Blood cultures: No growth. No fever for several days. Patient completed antibiotics. Continue Diflucan x 14 days total (yeast in urine). ID recommends no further antibiotics at this time DM2. BS monitoring with sliding scale insulin. PEG tube in place. h/o aspiration pneumonia in the past. states he has been doing well with regular food, sees speech therapy at home-no full consistency restrictions. Patient tolerating food without any issues. PEG tube exchanged for large caliber by Dr. Paulson on 04/11 Constipation resolved. Diarrhea improved Iron deficiency anemia - no longer iron deficient. Iron replacement may be contributing to the constipation. Iron supplementation discontinued given high patient desaturates to avoid iron overload. Hx of Urinary retention. Continue hernandez care - exchanged hernandez 04/11 Hx of CAD and CABG: Holding metoprolol due to bradycardia and junctional rhythm. Cardiology agreed. Troponin is negative Hypertension: Patient currently normotensive. Holding metoprolol due to bradycardia. Continue doxazosin and amlodipine Hyperlipidemia: Continue statin. CT abd/pelvis done evening of 04/12 given abd discomfort, diarrhea, back pain, suprapubic pressure, possible mild colitis, +anasarca, no other acute findings Dispo: anticipate dc home in next 2-3 days
[2021-04-14] MEDS: INSULIN -REGULAR HUMAN 50 UNIT/0.5 ML ML SQ SCH ×2 (07:30→11:30)
[2021-04-14] MEDS: ALBUTEROL 2.5 MG/3 ML NEB SOL NEB PRN (07:50)
[2021-04-14] MEDS: HEPARIN 5000 UNIT/ML 1 ML VIAL SQ SCH (08:00)
[2021-04-14] MEDS: SENOSIDES 8.6 MG TAB PO SCH (08:00)
[2021-04-14 08:40] VITALS: O2SAT 92
[2021-04-14 08:48] VITALS: BP 157/67
[2021-04-14] MEDS: CALCITROL 0.25 MCG CAP PO SCH (09:01)
[2021-04-14] MEDS: GABAPENTIN 300 MG CAP FT SCH (09:01)
[2021-04-14] MEDS: SUCRALFATE 1GM/10ML UCUP FT SCH ×2 (09:01→12:34)
[2021-04-14] MEDS: VITAMIN D 5,000 UNIT CAP PO SCH (09:01)
[2021-04-14] MEDS: FLUCONAZOLE 100 MG TAB PO SCH (09:02)
[2021-04-14] MEDS: PANTOPRAZOLE 40MG TABLET PO SCH (09:02)
[2021-04-14] MEDS: AMLODIPINE 10 MG TAB FT SCH (09:02)
[2021-04-14] MEDS: CLOPIDOGREL 75 MG TABLET FT SCH (09:02)
[2021-04-14] MEDS: ACETAMINOPHEN 500 MG TAB PO PRN (09:03)
[2021-04-14] MEDS: ESCITALOPRAM 20 MG TAB FT SCH (09:04)
[2021-04-14] MEDS: guaiFENesin 100 MG/5 ML UCUP FT PRN (09:04)
[2021-04-14] MEDS: GLUCERNA 1.5 CAL 1,000 ML BOT FT SCH ×2 (09:06→14:59)
--- NOTE | 2021-04-14 12:04 | P.PN ---
Subjective Date of Service: 04/14/21 Chief Complaint: Generalized weakness, UTI Patient seen examined at bedside, no acute events. Review of Systems 10-point ROS is otherwise unremarkable Physical Examination - Vital Signs Temperature: 98.4 F Blood Pressure: 157/67 Pulse: 53 Respirations: 16 Pulse Ox (%): 94 - Studies Laboratory Last Values WBC 18.20 K/uL (4.3-10.9) H 04/02/21 12:31 RBC 3.27 M/uL (4.33-5.43) L 04/02/21 12:31 Hgb 7.4 g/dL (13.6-17.9) L 04/02/21 12:31 Hct 23.3 % (39.6-49.0) L 04/02/21 12:31 MCV 71.1 fL (80-100) L D 04/02/21 12:31 MCH 22.6 pg (27.0-35.0) L 04/02/21 12:31 MCHC 31.8 g/dL (32.0-36.0) L 04/02/21 12:31 RDW 16.0 % (12.1-15.2) H 04/02/21 12:31 Plt Count 109 K/uL (152-406) L 04/02/21 12:31 MPV 10.6 fL (7.6-11.3) 04/02/21 12:31 Neutrophils % 87.3 % (41.7-73.7) H 04/02/21 12:31 Lymphocytes % 6.1 % (15.3-44.8) L 04/02/21 12:31 Monocytes % 6.2 % (3.3-12.3) 04/02/21 12:31 Eosinophils % 0.2 % (0-4.4) 04/02/21 12:31 Basophils % 0.2 % (0-1.3) 04/02/21 12:31 Absolute Neutrophils 15.9 K/uL (1.8-8.0) H 04/02/21 12:31 Absolute Lymphocytes 1.1 K/uL (0.7-4.9) 04/02/21 12:31 Absolute Monocytes 1.1 K/uL (0.1-1.3) 04/02/21 12:31 Absolute Eosinophils 0.0 K/uL (0-0.5) 04/02/21 12:31 Absolute Basophils 0.0 K/uL (0-0.5) 04/02/21 12:31 Platelet Estimate Decr 04/02/21 12:31 Hypochromasia 1+ 04/02/21 12:31 Poikilocytosis 1+ 04/02/21 12:31 Anisocytosis 1+ 04/02/21 12:31 Microcytosis 1+ 04/02/21 12:31 Morphology Comment Noted (NOT SEEN) 04/02/21 12:31 PT 13.1 SECONDS (9.5-12.5) H 04/02/21 12:31 INR 1.14 04/02/21 12:31 Sodium 137 mmol/L (136-145) 04/02/21 12:31 Potassium 5.0 mmol/L (3.5-5.1) 04/02/21 12:31 Chloride 104 mmol/L (98-107) 04/02/21 12:31 Carbon Dioxide 28 mmol/L (21-32) 04/02/21 12:31 BUN 87 mg/dL (7-18) H 04/02/21 12:31 Creatinine 1.45 mg/dL (0.55-1.3) H 04/02/21 12:31 Estimated GFR 49 mL/min (=/>90) L 04/02/21 12:31 Glucose 104 mg/dL (74-106) 04/02/21 12:31 Lactic Acid 1.0 mmol/L (0.4-2.0) 04/02/21 15:35 Calcium 8.6 mg/dL (8.5-10.1) 04/02/21 12:31 Magnesium 3.2 mg/dL (1.8-2.4) H 04/02/21 12:31 Total Bilirubin 0.5 mg/dL (0.2-1.0) 04/02/21 12:31 Direct Bilirubin 0.2 mg/dL (0-0.2) 04/02/21 12:31 AST 45 U/L (15-37) H 04/02/21 12:31 ALT 113 U/L (12-78) H 04/02/21 12:31 Alkaline Phosphatase 89 U/L (45-117) 04/02/21 12:31 Rapid Troponin I 0.02 ng/mL (0.0-0.045) 04/02/21 12:31 NT-Pro-B Natriuret Pep 84739 pg/mL (<125) H 04/02/21 12:31 Serum Total Protein 6.3 g/dL (6.4-8.2) L 04/02/21 12:31 Albumin 2.7 g/dL (3.4-5.0) L 04/02/21 12:31 Globulin 3.6 g/dL (2.3-3.5) H 04/02/21 12:31 Albumin/Globulin Ratio 0.8 (1.1-1.8) L 04/02/21 12:31 Lipase 115 U/L (73-393) 04/02/21 12:31 TSH 1.480 uIU/mL (0.360-3.740) 04/02/21 12:31 TSH Cancelled 04/02/21 12:31 Free T4 1.01 ng/dL (0.76-1.46) 04/02/21 12:31 Urine pH 7.0 (5.0-7.0) 04/02/21 12:46 Ur Specific [place] 1.020 (1.005-1.030) 04/02/21 12:46 Glucose (UA)(Auto) Negative (Negative) 04/02/21 12:46 Urine Ketones Negative (Negative) 04/02/21 12:46 Urine Blood 1+ (Negative) H 04/02/21 12:46 Urine Nitrite Negative (Negative) 04/02/21 12:46 Ur Leukocyte Esterase 1+ (Negative) H 04/02/21 12:46 Urine Total Protein 3+ (Negative) H 04/02/21 12:46 SARS-CoV-2 Rap RNA(RT-PCR) Negative (NEGATIVE) 04/02/21 12:31 Smear Scan Ok (OK) 04/02/21 12:31 ABO/Rh A POSITIVE 04/02/21 12:31 Solid Phase Ab Screen Negative 04/02/21 12:31 Crossmatch See Detail 04/02/21 12:31 Assessment And Plan - Plan Physical Exam: General: Alert, In no apparent distress, Cachectic HEENT: Atraumatic, Normocephalic Neck: Supple, 2+ carotid pulse no bruit Respiratory: Bibasilar crackles Normal air movement Cardiovascular: No edema, Regular rate/rhythm Gastrointestinal: Normal bowel sounds, Other (PEG tube. Insertion site with slight erythema) Musculoskeletal: No swelling, No contractures Integumentary: No rashes, No breakdown, No significant lesion, Other (Superficial skin tear noted to left lateral thigh) Conclusions/Impression: Antibiotics: Meropenem Start: 04/02 Stop: 04/05 Augmentin Start: 04/05 Stop: 04/09 Assessment/plan Recurrent urinary tract infection Patient was recently treated for a UTI with a 10 day course of a cephalosporin. Urine culture growing Serratia sensitive to Augmentin, patient started on renally dosed Augmentin. Continue until 04/09. Urinary analysis grew yeast, continue 14 day course of oral Diflucan. Possible left lower lobe pneumonia CT chest showed a left lower lobe opacity, meropenem started due to concern for possible aspiration pneumonia any for anaerobic coverage. Patient switched to Augmentin, still has anaerobic coverage. Leukocytosis with left shift Continuing broad-spectrum IV antibiotic. Continue to monitor and watch fever cu rve. Diabetes, CKD stage 3, CVA Medical management per primary team Plan of care discussed Dr. Ortega Thank you for consultation Physician Review: Patient Assessed, Agree with Above Assessment and Plan
[2021-04-14] MEDS: LIDOCAINE 4% PATCH TOP SCH (14:53)
--- NOTE | 2021-04-14 21:01 | P.DS ---
Admission Date: 04/02/21 Discharge Date: 04/14/21 Disposition: DC HOME/HOME HEALTH CARE Discharge Condition: GOOD Reason for Admission: Generalized weakness, UTI Consultations: Nephrology - Dr. Yadav Infectious Disease - Dr. Ortega GI - Dr. Paulson Procedures: CXR (04/02): IMPRESSION: Mild bilateral pulmonary opacities probably interstitial pulmonary edema CT Chest/Abd/Pelvis (04/02): IMPRESSION: Mild left lower lobe opacities probably mild pneumonia. Mild left lower lobe atelectasis Cholelithiasis Moderate amount stool within the colon CXR (04/09): IMPRESSION: Worsening bibasilar lung parenchymal opacification may be due to artifact from a more shallow inspiratory effort rather than true worsening of failure/ volume overload. Patient can be monitored with repeat imaging as warranted. Stable cardiomegaly. CXR (04/10): IMPRESSION: Bibasilar interstitial and alveolar opacification generally similar to the prior day study. Findings of right base may be slightly worse. Cardiomegaly without significant vascular engorgement remains. Volume overload or failure remain primary considerations. Correlation is needed with any lab or physical exam findings that may suggest a concurrent right base pneumonia. Enterostomy tube check w/ contrast (04/11): FINDINGS: Contrast was administered into the percutaneous gastrostomy tube. The stomach is opacified. Contrast enters the duodenum. No extravasation contrast CT Abd/Pelvi (04/12): IMPRESSION: Mild fluid retention pattern is present with small bilateral pleural effusions, larger on the right. Anasarca is present with mild free fluid in the abdomen and pelvis. Mild colonic wall thickening is seen involving the descending colon as well as the rectosigmoid colon. This may indicate a mild colitis. A limited non-contrast examination was performed as detailed. CXR (04/12): IMPRESSION: Findings most likely representing mild edema with small bilateral pleural effusion though pneumonia difficult to exclude radiographically. Overall, mild worsened aeration at the right lung base compared with 04/10/2021. Problem List acute cystitis acute metabolic encephalopathy secondary to UTI, resolved Chronic Holcomb catheter with history of urinary retention, recurrent UTIs Acute hypoxemic respiratory failure secondary to acute on chronic diastolic CHF Bradycardia Diabetes mellitus type 2, insulin dependent h/o PEG tube s/p aspiration pneumonia Anemia of chronic disease with iron deficiency History of CAD with previous CABG Hypertension Hyperlipidemia Brief History of Present Illness: 66-year-old male with a past medical history significant for chronic diastolic congestive heart failure, diabetes mellitus type 2, CKD 3, ALICIA, UTI, CVA who presents with complaint of generalized weakness and bradycardia. Patient reported that patient was recently treated with cefuroxime antibiotics for a period of 10 days for a UTI. Patient spouse reported that she noticed that patient's urine was cloudy. Patient reports associated signs and symptoms of diaphoresis, weakness, fatigue, bradycardia, insomnia and visual hallucinations. Patient denies any other signs or symptoms. Symptoms are aggravated or relieve d by nothing. Family decided to bring patient to the hospital for medical evaluation. Hospital Course: by Problem List Acute Cystitis - empirically treated with IV antibiotics. Urine culture grew Serratia and yeast. ID consulted given recurrent infections. Completed antibiotics. Discharged home to complete 14 days of Diflucan. Holcomb catheter was exchanged near the end of hospitalization. His metabolic encephalopathy quickly improved with initiation of antibiotics. Acute on Chronic diastolic CHF - patient was treated with IV lasix intermittently to avoid hypotension. He had gradual improvement of his anasarca. Bradycardia - noted to be in 50s to low 60s, beta virgilio was discontinued and heart rate remained in 50s to low 60s. Recommend discontinuation on discharge as well. Anemia of Chronic disease w/ iron deficiency - Hgb in the 7s on presentation and received blood transfusion with increase to 10s in the ED. Over course of hospitalization, Hgb decreased to mid 7s. He did have some mild bleeding from subq heparin injections. Stool remained brown and did not appear to have any blood. Retic count remained in the low-normal range - which is atypical in setting of low hemoglobin. PEG tube - replaced by Dr. Paulson with a larger diameter. the one he came in with was not functioning Patient was receiving less than prior home amount of tube feeds via new PEG Tube. Concern that he may be eating much PO in addition to the tube feeds he gets via PEG tube. Vital Signs/Physical Exam: Physical exam GEN: AOx3, more alert/awake HEENT: Normal conjunctiva, sclera anicteric CV: regular rate and rhythm Pulm: Non-labored respiration on room air, b/l mild crackles ABD: Soft, nondistended, PPhysical exam Neuro: Normal speech, normal affect Genitourinary: Holcomb catheter. mild-mod penile edema, superficial abrasion of penis EG tube in place, no purulent drainage, suprapubic pressure/discomfort with palpation Neuro: Normal speech, normal affect Genitourinary: Holcomb catheter. mild-mod penile edema, superficial abrasion of penis Temp Pulse Resp BP Pulse Ox 98.4 F 53 16 157/67 H 94 04/14/21 12:03 04/14/21 12:03 04/14/21 12:03 04/14/21 12:03 04/14/21 12:03 Laboratory Data at Discharge: WBC 8.00 K/uL (4.3-10.9) 04/14/21 04:40 Hgb 7.5 g/dL (13.6-17.9) L 04/14/21 04:40 Hct 23.4 % (39.6-49.0) L 04/14/21 04:40 Plt Count 120 K/uL (152-406) L 04/14/21 04:40 PT 13.1 SECONDS (9.5-12.5) H 04/02/21 12:31 INR 1.14 04/02/21 12:31 Sodium 141 mmol/L (136-145) 04/14/21 04:40 Potassium 4.9 mmol/L (3.5-5.1) 04/14/21 04:40 BUN 86 mg/dL (7-18) H 04/14/21 04:40 Creatinine 1.73 mg/dL (0.55-1.3) H 04/14/21 04:40 Glucose 99 mg/dL (74-106) 04/14/21 04:40 Uric Acid 5.5 mg/dL (3.5-7.2) 04/12/21 06:16 Phosphorus 4.4 mg/dL (2.5-4.9) 04/12/21 06:16 Magnesium 3.3 mg/dL (1.8-2.4) H 04/14/21 04:40 Total Bilirubin 0.3 mg/dL (0.2-1.0) 04/14/21 04:40 AST 24 U/L (15-37) 04/14/21 04:40 ALT 57 U/L (12-78) 04/14/21 04:40 Alkaline Phosphatase 103 U/L (45-117) 04/14/21 04:40 Troponin I 0.02 ng/mL (0.0-0.045) 04/07/21 18:12 Lipase 115 U/L (73-393) 04/02/21 12:31 Home Medications: Aspirin [Adult Aspirin Regimen] 81 mg FT BEDTIME 06/04/20 Atorvastatin Calcium [Lipitor] 80 mg FT BEDTIME 06/04/20 Amlodipine [Norvasc*] 10 mg FT DAILY 07/16/20 Clopidogrel Bisulfate [Plavix*] 75 mg FT DAILY 07/16/20 Escitalopram [Lexapro*] 30 mg FT DAILY 07/16/20 Gabapentin 300 mg FT BID 07/16/20 Doxazosin [Cardura*] 2 mg FT BEDTIME 30 Days #30 tab 12/08/20 Ascorbic Acid [Vitamin C] 2,000 mg FT TID 12/16/20 Sucralfate [Carafate] 100 mg FT SEECOM 12/16/20 Trazodone HCl 150 tab FT BEDTIME 12/16/20 Furosemide 20 mg PO BID 04/02/21 Insulin -Regular Human [Novolin -R*] 100 units SQ ACHS 04/02/21 Benzonatate [Tessalon Perle*] 100 mg PO TID PRN 5 Days #15 cap 04/14/21 Fluconazole [Diflucan] 200 mg FT DAILY 7 Days #7 tablet 04/14/21 Glucerna 1.5 Higinio 150 ml FT QID bot 04/14/21 New Medications: Fluconazole [Diflucan] 200 mg FT DAILY 7 Days #7 tablet Benzonatate [Tessalon Perle*] 100 mg PO TID PRN 5 Days #15 cap PRN Reason: Cough Activity: Fall precautions Followup: Kali Yadav DO [ACTIVE - CAN ADMIT] - Aidan Rios MD [Primary Care Provider] - Demetrio Best [ACTIVE - CAN ADMIT] - Time spent managing pt's care (in minutes): 40
== END 2021-04-14 16:51 | disposition home health service (06) | DRG 291 ==
LOC: ER 11:43 → ERHOLD 17:04 → 2ND 19:56
PROVIDERS: ADMIT Hospitalist; ATTEND Hospitalist
PROC: 0T9B70Z Drainage of Bladder with Drainage Device, Via Natural or Artificial Opening (ICD-10-PCS; principal; 2021-04-11)
DX: I13.0 Hypertensive heart and chronic kidney disease with heart failure and stage 1 through stage 4 chronic kidney disease, or unspecified chronic kidney disease (principal); I50.33 Acute on chronic diastolic (congestive) heart failure; J96.01 Acute respiratory failure with hypoxia; J18.9 Pneumonia, unspecified organism; G93.41 Metabolic encephalopathy; N30.00 Acute cystitis without hematuria; N17.9 Acute kidney failure, unspecified; E44.0 Moderate protein-calorie malnutrition; E87.1 Hypo-osmolality and hyponatremia; R64 Cachexia; E11.22 Type 2 diabetes mellitus with diabetic chronic kidney disease; N18.30 Chronic kidney disease, stage 3 unspecified; I25.10 Atherosclerotic heart disease of native coronary artery without angina pectoris; E78.5 Hyperlipidemia, unspecified; J44.9 Chronic obstructive pulmonary disease, unspecified; F17.200 Nicotine dependence, unspecified, uncomplicated; K59.00 Constipation, unspecified; D50.9 Iron deficiency anemia, unspecified; R00.1 Bradycardia, unspecified; D63.1 Anemia in chronic kidney disease; E86.1 Hypovolemia; E87.5 Hyperkalemia; E11.65 Type 2 diabetes mellitus with hyperglycemia; J02.9 Acute pharyngitis, unspecified; E83.51 Hypocalcemia; B96.89 Other specified bacterial agents as the cause of diseases classified elsewhere; Z68.22 Body mass index [BMI] 22.0-22.9, adult; Z93.1 Gastrostomy status; Z95.1 Presence of aortocoronary bypass graft; Z86.73 Personal history of transient ischemic attack (TIA), and cerebral infarction without residual deficits
CPT/HCPCS: 36415; 36430; 49465; 71045; 71250; 74176; 80048; 80053; 80076; 81001; 81003; 81015; 82272; 82533; 82570; 82746; 82947; 83010; 83540; 83605; 83690; 83735; 83880; 83930; 83935; 84100; 84132; 84145; 84300; 84439; 84443; 84466; 84484; 84550; 85025; 85044; 85610; 86140; 86850; 86900; 86901; 87040; 87077; 87086; 87088; 87186; 87324; 87449; 93005; 94640; 96361; 96365; 96375; 97110; 97112; 97161; 97530; 99285; J0456; J0610; J0696; J1200; J1450; J1644; J1940; J2185; J2920; J7030; J7050; J7799; P9016; U0003

== ENCOUNTER 2021-06-01 10:34 | Emergency (ER) | payer OTHER ==
--- OUTSIDE RECORDS SUMMARY | 2021-06-01 11:16 | XMS REPORT | Continuity of Care Document ---
:1955 Author Organization [facility] t Address [address] [place] [address] Care Team Providers Name Role Phone Balaji MORa Fernandez Primary Care Physician TEREZA Attending Clinician Unavailable GRIS Attending Clinician Unavailable Charly JONES Attending Clinician Doctor Unassigned, Name Attending Clinician Unavailable Misael MITCHELL W Attending Clinician Unavailable Dionna ZAFAR, A Attending Clinician Unavailable Adrian ZAFAR Attending Clinician Scott Sullivan MD Attending Clinician Tereza JONES Attending Clinician Daisy JONES, P Attending Clinician Kelton Espinosa DO Attending Clinician Dante Pretty MD, J Attending Clinician Blanca JONES Attending Clinician Arash Cleveland DO Attending Clinician Jimy ZAFAR, E Attending Clinician Milton Devlin MD Attending Clinician MILTON DEVLIN Attending Clinician Unavailable Landon Attending Clinician Mary Ellen Bah MD Attending Clinician Marlon JONES Attending Clinician Tay JONES Attending Clinician Balaji DOMINGO, M Attending Clinician Pob, Lab Main Attending Clinician Unavailable TAY Attending Clinician Unavailable Dion JONES Attending Clinician DION Attending Clinician Unavailable Anu LARSEN Attending Clinician Arash Baker MD Attending Clinician Elmo JONES Attending Clinician Unavailable ELMO Attending Clinician Unavailable 1, Lab Attending Clinician Unavailable ELMO Attending Clinician Unavailable Room, Therapy Tub Attending Clinician Unavailable Doyle DOMINGO, R Attending Clinician Singer LARSEN Attending Clinician Yohan Valderrama MD Attending Clinician Savita ROJAS R Attending Clinician Kayla JONES Attending Clinician Gris JONES Attending Clinician Joshua JONES Attending Clinician TEREZA Admitting Clinician Unavailable GRIS Admitting Clinician Unavailable Laurie JONES Scott Admitting Clinician Marlon JONES Admitting Clinician Arash Baker MD Admitting Clinician Yohan Valderrama MD Admitting Clinician Gris JONES Admitting Clinician Payers Payer Name Policy Type Policy Number Effective Date Expiration Date S simone MEDICARE PART A [id number] 2020 \\T\\ B 00:00:00 MEDICAID SSI PENDING 2019 PENDING 00:00:00 Problems Condition Condition Condition Status Onset Resolution Last Treating Co mments Source Name Details Category Date Date Treatment Clinician Date E46 E46 Disease Active Univers Unspecifie Unspecifie 4-11 it y of d severe d severe 00:00: [place] protein-ca protein-ca 00 Me dical zulmajv maya Branch malnutriti malnutriti on on Upper GI Upper GI Disease Active Unive rs bleed bleed 4-10 ity of 00:00: [place] [facility] Hypoglycem Hypoglycem Disease Active 2020-0 U nivers ia ia 4-14 ity of 00:00: [place] [facility] CAD CAD Disease Active 2020-0 Univers (coronary (coronary 3-17 ity of artery artery 00:00: [place] disease) disease) 00 [facility] CKD stage CKD stage Disease Active 2020-0 Uni vers 2 due to 2 due to 3-17 ity of type 2 type 2 00:00: [place] diabetes diabetes 00 [facility] mellitus mellitus Branch OSCAR (acute OSCAR (acute Disease Active 2020-0 U nivers kidney kidney 3-17 ity of injury) injury) 00:00: [place] [facility] Fe Fe Disease Active 2020-0 Univers deficiency deficiency 3-17 it y of anemia anemia 00:00: [place] [facility] Hyperkalem Hyperkalem Disease Active 2020-0 U nivers ia ia 3-17 ity of 00:00: [place] [facility] SOB SOB Disease Active 2020-0 Univers (shortness (shortness 2-29 it y of of breath) of breath) [place] Troponin I Troponin I Disease Active 2020-0 U nivers above above 2-05 ity of reference reference 00:00: [facility] s range range 00 Medical Branch Hypertensi Hypertensi Disease Active 2020-0 U nivers ve urgency ve urgency 2-05 it y of 00:00: [place] [facility] CHF CHF Disease Active 2020-0 Univers (congestiv (congestiv 2-04 it y of e heart e heart 00:00: [place] failure) failure) 00 [facility] CHF CHF Disease Active 2020-0 Univers exacerbati exacerbati 2-04 it y of on on 00:00: [place] [facility] Anemia, Anemia, Disease Active Overview: Univ ers unspecifie unspecifie 9-11 Formattin ity of d type d type 00:00: g of this [place] note Medical might be Branch different from the original. Added automatic ally from request for surgery [id number] Dysphagia, Dysphagia, Disease Active Overview : Univers unspecifie unspecifie 9-11 Formattin ity of d type d type 00:00: g of this [place] 00 note Medical might be Branch different from the original. 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 ity of congestive congestive 00:00[place] heart heart 00 Medical failure failure Branch Acute on Acute on Disease Active Unive rs chronic chronic 402 ity of combined combined 00:00: [place] systolic systolic 00 Medica l and and Branch diastolic diastolic congestive congestive heart heart failure failure Coronary Coronary Disease Active Unive rs artery artery 10-14 ity of disease disease 00:00: [place] involving involving 00 Medi lizzy pokagon pokagon Branch coronary coronary artery of artery of pokagon pokagon heart with heart with angina angina pectoris pectoris HTN HTN Disease Active Univers (hypertens (hypertens 10-14 it y of ion) ion) 00:00: [place] 00 Medical Branch HLD HLD Disease Active Univers (hyperlipi (hyperlipi 10-14 it y of demia) demia) 00:00: [place] 00 Medical Branch Type 2 Type 2 Disease Active Univers diabetes diabetes 02 ity of mellitus mellitus 00:00: [place] without without 00 Medical complicati complicati Br anch on on Pneumonia Pneumonia Disease Active Uni vers 4-01 ity of 00:00: [place] 00 Medical Branch NSTEMI NSTEMI Disease Active Univers (non-ST (non-ST 3-05 ity of elevated elevated 00:00: [place] myocardial myocardial 00 Me dical infarction infarction Br anch ) ) History of History of Disease Active [place] 3-01 ity of (myocardia (myocardia 00[place]00: [place] 00 Medical infarction infarction Br anch ) ) Foreign Foreign Disease Active Univers body in body in 2-20 ity of foot, left foot, left 00:00: [place] Left foot Left foot Disease Active Uni vers infection infection 2-19 ity of 00:00: [place] 00 Medical Branch Diabetic Diabetic Disease Active Unive rs foot foot 2-16 ity of infection infection 00[place]00[place] Right foot Right foot Disease Active U nivers infection infection 2-16 ity of 00:00: [place] 00 Medical Branch Foot Foot Disease Active Univers abscess, abscess, 2-16 ity of right right 00:00: 00 Medical Branch Infection Infection Disease Active Uni vers 2-16 ity of 00:00: [place] 00 Medical Branch History of History of Problem Resolve Univers anemia anemia d ity of [place] Physici ans History of History of Problem Resolve Univers atrial atrial d ity of flutter flutter [place] [facility] History of History of Problem Resolve Univers gastric gastric d ity of polyp polyp [place] [facility] DM DM Problem Active Univers neuropathy neuropathy it y of , type II , type II [place] diabetes diabetes Physic i mellitus mellitus ans Peripheral Peripheral Problem Active U nivers arterial arterial ity of disease disease [place] [facility] ans History of History of Problem Active U 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 [place] at[place]hy Physici ans Burn Burn Problem Active Univers ity of [place] [facility]ici ans Allergies, Adverse Reactions, Alerts Allergy Allergy Status Severity Reaction(s) Onset Inactive Treating Comm ents Source Name Type Date Date Clinician Spironol Propensi Active Other - See 2020-0 K 6.2 U nivers actone ty to comments 4-15 ity of adverse 00:00: [place] reaction 00 Medical s Branch SPIRONOL DRUG Active Other-Cmnt 2020-0 Univ ers ACTONE INGREDI 4-15 ity of 00:00: [place] 00 Medical Branch PHENYLEP DRUG Active Hallucinates 2020-0 Un michael HRINE-DM 2-04 ity of -GUAIFEN 00:00: [place] ESIN 00 Medical Branch Phenylep Propensi Active Hallucinatio 2020-0 Univers hrine-Dm ty to ns 2-04 ity of -Guaifen adverse 00:00: [place] esin reaction 00 Medical s Branch Anextuss Propensi Active Hallucinatio Univers TB12 ty to ns ity of adverse [place] reaction Physici s to ans drug (finding ) Family History Family Member Diagnosis Comments Start Date Stop Date Source Mother Family history of Univers ity of [place] coronary artery Physician s disease Mother Family history of Univers ity of [place] Sibley's disease Physici ans Mother Family history of Univers ity of [place] diabetes mellitus Physici ans Mother Family history of Univers ity of [place] hypertension Physicians Mother Family history of Univers ity of [place] malignant neoplasm Physic ians Father Family history of Univers ity of [place] diabetes mellitus Physici ans Father Family history of Univers ity of [place] hypertension Physicians Father Family history of Univers ity of [place] coronary artery Physician s disease Sister Family history of Univers ity of [place] malignant neoplasm Physic ians Brother Family history of Univers ity of [place] pancreatic cancer Physici ans Brother Cancer [facility] Father Coronary Heart Disease Un iversity of [place] [facility] [place] Father Diabetes [facility] Father Hypertension University o f [facility] Branch Mother Jose [facility] [place] disease Medical Branch Mother Cancer [facility] Mother Coronary Heart Disease Un iversity of [facility] Mother Diabetes [facility] Mother Heart [facility] Mother Hypertension University o f [facility] Sister Cancer [facility] Social History Social Habit Start Date Stop Date Quantity Comments Source Exposure to Not sure University of SARS-CoV-2 (event) [place] [facility] History SDOH University o f Alcohol Frequency [facility] [place] edical Branch History SDOH University o f Alcohol Std Drinks [facility] Branch History SDIL University o f Alcohol Binge [place] [facility] History of tobacco Cigarette Smoker University of use [facility] Alcohol intake 2020-05-03 2020-05-03 Current drinker Unive rsity of 00:00:00 00:00:00 of alcohol [facility] (finding) Branch History SDOH 2019-09-30 2019-09-30 3 University o f Financial 00:00:00 00:00:00 [facility] Branch History SDOH Food 2019-09-30 2019-09-30 1 Univers ity of Worry 00:00:00 00:00:00 [facility] Branch History SDOH Food 2019-09-30 2019-09-30 1 Univers ity of Scarcity 00:00:00 00:00:00 [facility] Branch History SDOH 2019-09-30 2019-09-30 2 University o f Transport Med 00:00:00 00:00:00 [facility] Branch History SDOH 2019-09-30 2019-09-30 2 University o f Transport Non-Med 00:00[facility]00 [facility] 2019-09-29 2019-09-29 13 University of 00:00:00 00:00:00 [facility] Branch Tobacco use and 2019-09-29 2019-09-29 Never used Universit y of exposure 00:00:00 00:00:00 [facility] Cigarettes smoked 2019-09-29 2019-09-29 Univers ity of current (pack per 00:00:00 00:00:00 ) - Reported Branch Cigarette 2019-09-29 2019-09-29 University of pack-years 00:00:00 00:00:00 [facility] Tobacco Comment 2018-04-03 2018-04-03 2-2.5 PPD X 40 Unive rsity of 00:00:00 00:00:00 years, down to [facility] lizzy 1PPD since Branch 02/2018 Alcohol Comment 2018-04-03 2018-04-03 quit5 years ago Univ ersity of 00:00:00 00:00:00 [facility] Sex [birth year] Universit y of 00:00:00 00:00:00 [facility] Smoking Status Start Date Stop Date Source Ex-smoker (finding) University o f [place] [facility] Current every day smoker 2019-09-28 00:00:00 Uni versity of [facility] Medications Ordered Filled Start Stop Current Ordering Indication Dosage Frequency Signature Comments Components Source Medication Medication Date Date Medication? Clinician (SIG) Name Name metoprolol Yes [id number] 25mg Take 25 mg Univers tartrate 75 4-29 through ity o f mg Tab 00:00: enteral [place] 00 tube 2 Medical (two) Branch times daily. metoprolol Yes [id number] 25mg Take 25 mg Univers tartrate 75 4-29 through ity o f mg Tab 00:00: enteral [place] 00 tube 2 Medical (two) Branch times daily. metoprolol Yes [id number] 100mg Take 1 Univers tartrate 4-29 tablet ity of 100 mg 00:00: through [place] tablet 00 enteral Medical tube 2 Branch (two) times daily. metoprolol Yes [id number] 25mg Take 25 mg Univers tartrate 75 4-29 through ity o f mg Tab 00:00: enteral [place] 00 tube 2 Medical (two) Branch times daily. metoprolol Yes [id number] 100mg Take 1 Univers tartrate 4-29 tablet ity of 100 mg 00:00: through [place] tablet 00 enteral Medical tube 2 Branch (two) times daily. metoprolol 2021-0 Yes [id number] 25mg Take 25 mg Univers tartrate 75 4-29 through ity o f mg Tab 00:00: enteral [place] 00 tube 2 Medical (two) Branch times daily. metoprolol 2020-0 Yes [id number] 100mg Take 1 Univers tartrate 4-29 tablet ity of 100 mg 00:00: through [place] tablet 00 enteral Medical tube 2 Branch (two) times daily. metoprolol 2020-0 Yes [id number] 25mg Take 25 mg Univers tartrate 75 4-29 through ity o f mg Tab 00:00: enteral [place] 00 tube 2 Medical (two) Branch times daily. metoprolol 2020-0 Yes [id number] 100mg Take 1 Univers tartrate 4-29 tablet ity of 100 mg 00:00: through [place] tablet 00 enteral Medical tube 2 Branch (two) times daily. metoprolol 0 Yes [id number] 25mg Take 25 mg Univers tartrate 75 4-29 through ity o f mg Tab 00:00: enteral [place] 00 tube 2 Medical (two) Branch times daily. metoprolol 2020-0 Yes [id number] 100mg Take 1 Univers tartrate 4-29 tablet ity of 100 mg 00:00: through [place] tablet 00 enteral Medical tube 2 Branch (two) times daily. metoprolol 2020-0 Yes [id number] 25mg Take 25 mg Univers tartrate 75 4-29 through ity o f mg Tab 00:00: enteral [place] 00 tube 2 Medical (two) Branch times daily. metoprolol 2020-0 Yes [id number] 100mg Take 1 Univers tartrate 4-29 tablet ity of 100 mg 00:00: through [place] tablet 00 enteral Medical tube 2 Branch (two) times daily. metoprolol 0 Yes [id number] 25mg Take 25 mg Univers tartrate 75 4-29 through ity o f mg Tab 00:00: enteral [place] 00 tube 2 Medical (two) Branch times daily. metoprolol 2020-0 Yes [id number] 100mg Take 1 Univers tartrate 4-29 tablet ity of 100 mg 00:00: through [place] tablet 00 enteral Medical tube 2 Branch (two) times daily. sennosides- 2020-0 Yes [id number] 1{tbl} Take 1 Univers docusate 4-28 tablet ity of sodium 00:00: through [place] 8.6-50 mg 00 enteral Medical per tablet tube Branch daily. lidocaine Yes [id number] 1{patch Apply 1 Univers % (700 4-28 } Patch to ity of mg/patch) 00:00: area(s) [place] patch 00 daily. Medical Branch ferrous Yes [id number] 300mg Take 5 mL Univers sulfate 300 4-28 through ity o f mg (60 mg 00:00: enteral [place] iron)/5 mL 00 tube every Med ical solution other day. [facility]- Yes [id number] 1{tbl} Take 1 Univers docusate 4-28 tablet ity of sodium 00:00: through [place] 8.6-50 mg 00 enteral Medical per tablet tube Branch daily. lidocaine Yes [id number] 1{patch Apply 1 Univers % (700 4-28 } Patch to ity of mg/patch) 00:00: area(s) [place] patch 00 daily. [facility] Branch esomeprazol Yes [id number] 40mg Take 40 mg Univers e (NEXIUM 4-28 1 by mouth ity of PACKET) 40 00:00: daily with [place] mg packet 00 breakfast. [facility]- Yes [id number] 1{tbl} Take 1 Univers docusate 4-28 tablet ity of sodium 00:00: through [place] 8.6-50 mg 00 enteral Medical per tablet tube Branch daily. lidocaine Yes [id number] 1{patch Apply 1 Univers % (700 4-28 } Patch to ity of mg/patch) 00:00: area(s) [place] patch 00 daily. [facility] Branch esomeprazol Yes [id number] 40mg Take 40 mg Univers e (NEXIUM 4-28 1 by mouth ity of PACKET) 40 00:00: daily with [place] mg packet 00 breakfast. [facility]- Yes [id number] 1{tbl} Take 1 Univers docusate 4-28 tablet ity of sodium 00:00: through [place] 8.6-50 mg 00 enteral Medical per tablet tube Branch daily. lidocaine Yes [id number] 1{patch Apply 1 Univers % (700 4-28 } Patch to ity of mg/patch) 00:00: area(s) [place] patch 00 daily. Medical Branch esomeprazol Yes [id number] 40mg Take 40 mg Univers e (NEXIUM 4-28 1 by mouth ity of PACKET) 40 00:00: daily with [place] mg packet 00 breakfast. [facility]- Yes [id number] 1{tbl} Take 1 Univers docusate 4-28 tablet ity of sodium 00:00: through [place] 8.6-50 mg 00 enteral Medical per tablet tube Branch daily. lidocaine 5 Yes [id number] 1{patch Apply 1 Univers % (700 4-28 } Patch to ity of mg/patch) 00:00: area(s) [place] patch 00 daily. Medical Branch esomeprazol Yes [id number] 40mg Take 40 mg Univers e (NEXIUM 4-28 1 by mouth ity of PACKET) 40 00:00: daily with [place] mg packet 00 breakfast. [facility]- Yes [id number] 1{tbl} Take 1 Univers docusate 4-28 tablet ity of sodium 00:00: through [place] 8.6-50 mg 00 enteral Medical per tablet tube Branch daily. lidocaine 5 Yes [id number] 1{patch Apply 1 Univers % (700 4-28 } Patch to ity of mg/patch) 00:00: area(s) [place] patch 00 daily. Medical Branch esomeprazol Yes [id number] 40mg Take 40 mg Univers e (NEXIUM 4-28 1 by mouth ity of PACKET) 40 00:00: daily with [place] mg packet 00 breakfast. [facility]- Yes [id number] 1{tbl} Take 1 Univers docusate 4-28 tablet ity of sodium 00:00: through [place] 8.6-50 mg 00 enteral Medical per tablet tube Branch daily. lidocaine 5 Yes [id number] 1{patch Apply 1 Univers % (700 4-28 } Patch to ity of mg/patch) 00:00: area(s) [place] patch 00 daily. Medical Branch esomeprazol Yes [id number] 40mg Take 40 mg Univers e (NEXIUM 4-28 1 by mouth ity of PACKET) 40 00:00: daily with [place] mg packet 00 breakfast. [facility]- Yes [id number] 1{tbl} Take 1 Univers docusate 4-28 tablet ity of sodium 00:00: through [place] 8.6-50 mg 00 enteral Medical per tablet tube Branch daily. lidocaine 5 2020- Yes [id number] 1{patch Apply 1 Univers % (700 4-28 } Patch to ity of mg/patch) 00:00: area(s) [place] patch 00 daily. Medical Branch esomeprazol Yes [id number] 40mg Take 40 mg Univers e (NEXIUM 4-28 1 by mouth ity of PACKET) 40 00:00: daily with [place] mg packet 00 breakfast. [facility]- Yes [id number] 1{tbl} Take 1 Univers docusate 4-28 tablet ity of sodium 00:00: through [place] 8.6-50 mg 00 enteral Medical per tablet tube Branch daily. lidocaine 5 2020- Yes [id number] 1{patch Apply 1 Univers % (700 4-28 } Patch to ity of mg/patch) 00:00: area(s) [place] patch 00 daily. Medical Branch esomeprazol Yes [id number] 40mg Take 40 mg Univers e (NEXIUM 4-28 1 by mouth ity of PACKET) 40 00:00: daily with [place] mg packet 00 breakfast. [facility]- Yes [id number] 1{tbl} Take 1 Univers docusate 4-28 tablet ity of sodium 00:00: through [place] 8.6-50 mg 00 enteral Medical per tablet tube Branch daily. lidocaine 5 2020- Yes [id number] 1{patch Apply 1 Univers % (700 4-28 } Patch to ity of mg/patch) 00:00: area(s) [place] patch 00 daily. Medical Branch esomeprazol Yes [id number] 40mg Take 40 mg Univers e (NEXIUM 4-28 1 by mouth ity of PACKET) 40 00:00: daily with [place] mg packet 00 breakfast. [facility] [id number] 1{tbl} Take 1 Univers docusate 4-28 tablet ity of sodium 00:00: through [place] 8.6-50 mg 00 enteral Medical per tablet tube Branch daily. lidocaine 5 2020- Yes [id number] 1{patch Apply 1 Univers % (700 4-28 } Patch to ity of mg/patch) 00:00: area(s) [place] patch 00 daily. Medical Branch esomeprazol Yes [id number] 40mg Take 40 mg Univers e (NEXIUM 4-28 1 by mouth ity of PACKET) 40 00:00: daily with [place] mg packet 00 breakfast. [facility] [id number] 1{tbl} Take 1 Univers docusate 4-28 tablet ity of sodium 00:00: through [place] 8.6-50 mg 00 enteral Medical per tablet tube Branch daily. lidocaine 5 Yes [id number] 1{patch Apply 1 Univers % (700 4-28 } Patch to ity of mg/patch) 00:00: area(s) [place] patch 00 daily. Medical Branch esomeprazol Yes [id number] 40mg Take 40 mg Univers e (NEXIUM 4-28 1 by mouth ity of PACKET) 40 00:00: daily with [place] mg packet 00 breakfast. [facility] ferrous 2020- No [id number] 220mg Take 5 mL Univers sulfate 220 11-09- 1 by mouth 3 i ty of mg (44 mg 00:00: 04:59 (three) [place] iron)/5 mL 00 :00 times Medical solution daily with Branc h meals for 30 days. gabapentin 2020-2020- No [id number] 300mg Take 6 mL Univers 250 mg/5 mL 11-09- through ity of solution 00:00: 04:59 enteral [place] 00 :00 tube 3 Medical (three) Branch times daily for 30 days. ferrous 2020-2020- No [id number] 220mg Take 5 mL Univers sulfate 220 11-09- 1 by mouth 3 i ty of mg (44 mg 00:00: 04:59 (three) [place] iron)/5 mL 00 :00 times Medical solution daily with Branc h meals for 30 days. gabapentin 2020- No [id number] 300mg Take 6 mL Univers 250 mg/5 mL 11-09- through ity of solution 00:00: 04:59 enteral [place] 00 :00 tube 3 Medical (three) Branch times daily for 30 days. ferrous 2020- No [id number] 220mg Take 5 mL Univers sulfate 220 11-09- 1 by mouth 3 i ty of mg (44 mg 00:00: :59 (three) [place] iron)/5 mL 00 :00 times Medical solution daily with Branc h meals for 30 days. gabapentin 2020- No [id number] 300mg Take 6 mL Univers 250 mg/5 mL 11-09- through ity of solution 00:00: 04:59 enteral [place] 00 :00 tube 3 Medical (three) Branch times daily for 30 days. ferrous 2020- No [id number] 220mg Take 5 mL Univers sulfate 220 11-09- 1 by mouth 3 i ty of mg (44 mg 00:00: :59 (three) [place] iron)/5 mL 00 :00 times Medical solution daily with Branc h meals for 30 days. gabapentin 2020- No [id number] 300mg Take 6 mL Univers 250 mg/5 mL 11-09- through ity of solution 00:00: 04:59 enteral [place] 00 :00 tube 3 Medical (three) Branch times daily for 30 days. ferrous 2020- No [id number] 220mg Take 5 mL Univers sulfate 220 11-09- 1 by mouth 3 i ty of mg (44 mg 00:00: :59 (three) [place] iron)/5 mL 00 :00 times Medical solution daily with Branc h meals for 30 days. gabapentin 2020- No [id number] 300mg Take 6 mL Univers 250 mg/5 mL 11-09- through ity of solution 00:00: 04:59 enteral [place] 00 :00 tube 3 Medical (three) Branch times daily for 30 days. ferrous 2020- No [id number] 220mg Take 5 mL Univers sulfate 220 11-09- 1 by mouth 3 i ty of mg (44 mg 00:: :59 (three) [place] iron)/5 mL 00 :00 times Medical solution daily with Branc h meals for 30 days. gabapentin 2020- No [id number] 300mg Take 6 mL Univers 250 mg/5 mL 11-09- through ity of solution 00:00: 04:59 enteral [place] 00 :00 tube 3 Medical (three) Branch times daily for 30 days. ferrous 2020- No [id number] 220mg Take 5 mL Univers sulfate 220 11-09- 1 by mouth 3 i ty of mg (44 mg 00:00: :59 (three) [place] iron)/5 mL 00 :00 times Medical solution daily with Branc h meals for 30 days. gabapentin 2020- No [id number] 300mg Take 6 mL Univers 250 mg/5 mL 11-09 through ity of solution 00:00: 04:59 enteral [place] 00 :00 tube 3 Medical (three) Branch times daily for 30 days. ferrous 2020- No [id number] 220mg Take 5 mL Univers sulfate 220 11-09- 1 by mouth 3 i ty of mg (44 mg 00:: :59 (three) [place] iron)/5 mL 00 :00 times Medical solution daily with Branc h meals for 30 days. gabapentin 2020- No [id number] 300mg Take 6 mL Univers 250 mg/5 mL 11-09- through ity of solution 00:00: 04:59 enteral [place] 00 :00 tube 3 Medical (three) Branch times daily for 30 days. ferrous 2020- No [id number] 300mg Take 5 mL Univers sulfate 300 11-09 through ity of mg (60 mg 00:00: 00:00 [place] iron)/5 mL 00 :00 tube every Med ical solution other day. Bran h escitalopra 2020- No 20mg Take 20 mg Univers m oxalate 11-08 by mouth ity o f 20 mg 19:31: 00:00 daily. [place] tablet 00 :00 Medical Branch traZODone 2020- No 100mg Take 100 Un michael 100 mg 11-08- mg by ity of tablet 19:31: 00:00 mouth at [place] 00 :00 bedtime. Medical Branch escitalopra 2020- No 20mg Take 20 mg [facility] m oxalate 11-08 by mouth ity o f 20 mg 19:31: 00:00 daily. [place] tablet 00 :00 Medical Branch traZODone 2020- No 100mg Take 100 Un michael 100 mg 11-08 mg by ity of tablet 19:31: 00:00 mouth at [place] 00 :00 bedtime. Medical Branch cranberry 2020- No 1{tbl} Take 1 [facility] vers fruit 11-08 tablet by ity of (CRANBERRY) 19:30: 00:00 mouth [place] 450 mg Tab 59 :00 daily. Medical Branch cranberry 2020- No 1{tbl} Take 1 [facility] vers fruit 11-08 tablet by ity of (CRANBERRY) 19:30: 00:00 mouth [place] 450 mg Tab 59 :00 daily. Medical Branch sodium Yes 4mL 4 mL, [facility] chloride 7% 11-08 Inhalation it y of (HYPER-JOSE) 14:45: , BID, [place] nebulizer 00 First dose Medi lizzy solution 4 on Sat [facility] 11/08/20 at 0945, Until Discontinu ed, Routine lidocaine Yes 1{patch 1 Patch, U nivers (LIDODERM) 11-08 } Topical, ity o f 5 % (700 14:00: Administer You as mg/patch) 00 over 12 Medical patch 1 Hours, Branch Patch DAILY, First dose on Sat11/08/20 at 0900, Until Discontinu ed, Routine acetaminoph Yes [id number] 325mg Take 10.25 [facility] en 160 mg/5 - mL through it y of mL liquid 00:00: enteral [place] 00 tube every Medical 6 (six) Branch hours as needed (pain, fever). metoprolol Yes [id number] 100mg Take 10 mL [facility] 10 mg/mL 11-08 through ity of 00:00: enteral [place] 00 tube every Medical 12 Branch (twelve) hours. pantoprazol Yes [id number] 40mg Take 2 [facility] e 20 mg EC 4-27 tablets by ity of tablet 00:00: mouth 00 daily. Medical Branch pantoprazol 0 Yes [id number] 40mg Take 20 mL [facility] e 4-27 through ity of (PROTONIX) 00:00: enteral [place] 2 mg/mL 00 tube Medical oral daily. Branch suspension amLODIPine 0 Yes [id number] 5mg Take 1 [facility] 5 mg tablet 4-27 tablet ity of 00:00: through [place] enteral Medical tube Branch daily. calcitrioL Yes [id number] .5ug Take 1 [facility] 0.5 mcg 4-27 capsule by ity of capsule 00:00: mouth [place] 00 daily. Medical Branch clopidogreL Yes [id number] 75mg Take 1 [facility] 75 mg 4-27 tablet ity of tablet 00:00: through [place] enteral Medical tube Branch daily. escitalopra Yes [id number] 20mg Take 1 [facility] m oxalate 4-27 tablet ity of 20 mg 00:00: through [place] tablet 00 enteral Medical tube Branch daily. furosemide Yes [id number] 40mg Take 1 [facility] 40 mg 4-27 tablet by ity of tablet 00:00: mouth [place] 00 every Medical morning Branch and evening. metFORMIN 0 Yes [id number] 500mg Take 1 [facility] 500 mg 4-27 tablet ity of tablet 00:00: through [place] enteral Medical tube 2 Branch (two) times daily with meals. ondansetron 0 Yes [id number] 4mg Take 1 [facility] (ZOFRAN 4-27 tablet by ity of ODT) 4 mg 00:00: mouth [place] disintegrat 00 every 8 Medic al ing tablet (eight) Branch hours as needed for Nausea and Vomiting (N/V). traZODone 0 Yes [id number] 100mg Take 1 [facility] 100 mg 4-27 tablet ity of tablet 00:00: through [place] 00 enteral Medical tube at Branch bedtime. aspirin 81 2020-0 Yes [id number] 81mg Take 1 [facility] mg chewable 4-27 tablet ity of tablet 00:00: through [place] 00 enteral Medical tube Branch daily. atorvastati 2020-0 Yes [id number] 80mg Take 1 [facility] n 80 mg 4-27 tablet ity of tablet 00:00: through enteral Medical tube at Branch bedtime. gabapentin 2020-0 Yes [id number] 300mg Take 6 mL [facility] 250 mg/5 mL 4-27 through ity o f solution 00:00: enteral 00 tube 3 Medical (three) Branch times daily. ipratropium 2020-0 Yes [id number] 3mL Inhale 3 [facility] -albuteroL 4-27 mL every 6 ity of 0.5 mg-3 00:00: (six) [place] mg(2.5 mg 00 hours as Medica l base)/3 mL needed for [facility] nebulizer Wheezing solution or Shortness of Breath. acetaminoph 0 Yes [id number] 325mg Take 10.25 [facility] en 160 mg/5 4-27 mL through it y of mL liquid 00:00: enteral [place] 00 tube every Medical 6 (six) Branch hours as needed (pain, fever). metoprolol 2020-0 Yes [id number] 100mg Take 10 mL [facility] 10 mg/mL 4-27 through ity of 00:00: enteral 00 tube every Medical 12 Branch (twelve) hours. pantoprazol 2020-0 Yes [id number] 40mg Take 2 [facility] e 20 mg EC 4-27 tablets by ity of tablet 00:00: mouth daily. Medical Branch amLODIPine 2020-0 Yes [id number] 5mg Take 1 [facility] 5 mg tablet 4-27 tablet ity of 00:00: through enteral Medical tube Branch daily. calcitrioL 2020-0 Yes [id number] .5ug Take 1 [facility] 0.5 mcg 4-27 capsule by ity of capsule 00:00: mouth daily. Medical Branch clopidogreL 2020-0 Yes [id number] 75mg Take 1 [facility] 75 mg 4-27 tablet ity of tablet 00:00: through enteral Medical tube Branch daily. escitalopra 2020-0 Yes [id number] 20mg Take 1 [facility] m oxalate 4-27 tablet ity of 20 mg 00:00: through [place] tablet 00 enteral Medical tube Branch daily. furosemide 2020-0 Yes [id number] 40mg Take 1 [facility] 40 mg 4-27 tablet by ity of tablet 00:00: mouth [place] 00 every Medical morning Branch and evening. metFORMIN 2020-0 Yes [id number] 500mg Take 1 [facility] 500 mg 4-27 tablet ity of tablet 00:00: through enteral Medical tube 2 Branch (two) times daily with meals. ondansetron 2020-0 Yes [id number] 4mg Take 1 [facility] (ZOFRAN 4-27 tablet by ity of ODT) 4 mg 00:00: mouth [place] disintegrat 00 every 8 Medic al ing tablet (eight) Branch hours as needed for Nausea and Vomiting (N/V). traZODone 2020-0 Yes [id number] 100mg Take 1 [facility] 100 mg 4-27 tablet ity of tablet 00:00: through enteral Medical tube at Branch bedtime. aspirin 81 2020-0 Yes [id number] 81mg Take 1 [facility] mg chewable 4-27 tablet ity of tablet 00:00: through enteral Medical tube Branch daily. atorvastati 2020-0 Yes [id number] 80mg Take 1 [facility] n 80 mg 4-27 tablet ity of tablet 00:00: through enteral Medical tube at Branch bedtime. ipratropium 2020-0 Yes [id number] 3mL Inhale 3 [facility] -albuteroL 4-27 mL every 6 ity of 0.5 mg-3 00:00: (six) [place] mg(2.5 mg 00 hours as Medica l base)/3 mL needed for [facility] nebulizer Wheezing solution or Shortness of Breath. acetaminoph 2020-0 Yes [id number] 325mg Take 10.25 [facility] en 160 mg/5 4-27 mL through it y of mL liquid 00:00: enteral 00 tube every Medical 6 (six) Branch hours as needed (pain, fever). metoprolol 2020-0 Yes [id number] 100mg Take 10 mL [facility] 10 mg/mL 4-27 through ity of 00:00: enteral 00 tube every Medical 12 Branch (twelve) hours. pantoprazol 2020-0 Yes [id number] 40mg Take 2 [facility] e 20 mg EC 4-27 tablets by ity of tablet 00:00: mouth 00 daily. Medical Branch amLODIPine 2020-0 Yes [id number] 5mg Take 1 [facility] 5 mg tablet 4-27 tablet ity of 00:00: through [place] 00 enteral Medical tube Branch daily. calcitrioL Yes [id number] .5ug Take 1 [facility] 0.5 mcg 4-27 capsule by ity of capsule 00:00: mouth [place] 00 daily. Medical Branch clopidogreL 0 Yes [id number] 75mg Take 1 [facility] 75 mg 4-27 tablet ity of tablet 00:00: through [place] 00 enteral Medical tube Branch daily. escitalopra Yes [id number] 20mg Take 1 [facility] m oxalate 4-27 tablet ity of 20 mg 00:00: through [place] tablet 00 enteral Medical tube Branch daily. furosemide Yes [id number] 40mg Take 1 [facility] 40 mg 4-27 tablet by ity of tablet 00:00: mouth [place] 00 every Medical morning Branch and evening. metFORMIN Yes [id number] 500mg Take 1 [facility] 500 mg 4-27 tablet ity of tablet 00:00: through [place] enteral Medical tube 2 Branch (two) times daily with meals. ondansetron Yes [id number] 4mg Take 1 [facility] (ZOFRAN 4-27 tablet by ity of ODT) 4 mg 00:00: mouth [place] disintegrat 00 every 8 Medic al ing tablet (eight) Branch hours as needed for Nausea and Vomiting (N/V). traZODone Yes [id number] 100mg Take 1 [facility] 100 mg 4-27 tablet ity of tablet 00:00: through [place] enteral Medical tube at Branch bedtime. aspirin 81 0 Yes [id number] 81mg Take 1 [facility] mg chewable 4-27 tablet ity of tablet 00:00: through [place] 00 enteral Medical tube Branch daily. atorvastati Yes [id number] 80mg Take 1 [facility] n 80 mg 4-27 tablet ity of tablet 00:00: through [place] enteral Medical tube at [place] bedtime. ipratropium 0 Yes [id number] 3mL Inhale 3 [facility] -albuteroL 4-27 mL every 6 ity of 0.5 mg-3 00:00: (six) [place] mg(2.5 mg 00 hours as Medica l base)/3 mL needed for [facility] nebulizer Wheezing solution or Shortness of Breath. acetaminoph 0 Yes [id number] 325mg Take 10.25 [facility] en 160 mg/5 4-27 mL through it y of mL liquid 00:00: enteral [place] 00 tube every Medical 6 (six) Branch hours as needed (pain, fever). pantoprazol 0 Yes [id number] 40mg Take 2 [facility] e 20 mg EC 4-27 tablets by ity of tablet 00:00: mouth [place] 00 daily. Medical Branch amLODIPine 0 Yes [id number] 5mg Take 1 [facility] 5 mg tablet 4-27 tablet ity of 00:00: through [place] enteral Medical tube Branch daily. calcitrioL Yes [id number] .5ug Take 1 [facility] 0.5 mcg 4-27 capsule by ity of capsule 00:00: mouth [place] 00 daily. Medical Branch clopidogreL Yes [id number] 75mg Take 1 [facility] 75 mg 4-27 tablet ity of tablet 00:00: through [place] 00 enteral Medical tube Branch daily. escitalopra Yes [id number] 20mg Take 1 [facility] m oxalate 4-27 tablet ity of 20 mg 00:00: through [facility] 00 enteral Medical tube Branch daily. furosemide Yes [id number] 40mg Take 1 [facility] 40 mg 4-27 tablet by ity of tablet 00:00: mouth [place] 00 every Medical morning Branch and evening. metFORMIN Yes [id number] 500mg Take 1 [facility] 500 mg 4-27 tablet ity of tablet 00:00: through [place] 00 enteral Medical tube 2 Branch (two) times daily with meals. ondansetron 0 Yes [id number] 4mg Take 1 [facility] (ZOFRAN 4-27 tablet by ity of ODT) 4 mg 00:00: mouth [place] disintegrat 00 every 8 Medic al ing tablet (eight) Branch hours as needed for Nausea and Vomiting (N/V). traZODone 0 Yes [id number] 100mg Take 1 [facility] 100 mg 4-27 tablet ity of tablet 00:00: through [place] 00 enteral Medical tube at Branch bedtime. aspirin 81 0 Yes [id number] 81mg Take 1 [facility] mg chewable 4-27 tablet ity of tablet 00:00: through [place] 00 enteral Medical tube Branch daily. atorvastati Yes [id number] 80mg Take 1 [facility] n 80 mg 4-27 tablet ity of tablet 00:00: through [place] 00 enteral Medical tube at Branch bedtime. ipratropium 0 Yes [id number] 3mL Inhale 3 [facility] -albuteroL 4-27 mL every 6 ity of 0.5 mg-3 00:00: (six) [place] mg(2.5 mg 00 hours as Medica l base)/3 mL needed for [facility] nebulizer Wheezing solution or Shortness of Breath. acetaminoph 2020-0 Yes [id number] 325mg Take 10.25 [facility] en 160 mg/5 4-27 mL through it y of mL liquid 00:00: enteral [place] 00 tube every Medical 6 (six) Branch hours as needed (pain, fever). pantoprazol 2020-0 Yes [id number] 40mg Take 2 [facility] e 20 mg EC 4-27 tablets by ity of tablet 00:00: mouth [place] 00 daily. Medical Branch amLODIPine 2020-0 Yes [id number] 5mg Take 1 [facility] 5 mg tablet 4-27 tablet ity of 00:00: through [place] enteral Medical tube Branch daily. calcitrioL 2020-0 Yes [id number] .5ug Take 1 [facility] 0.5 mcg 4-27 capsule by ity of capsule 00:00: mouth [place] 00 daily. Medical Branch clopidogreL 2020-0 Yes [id number] 75mg Take 1 [facility] 75 mg 4-27 tablet ity of tablet 00:00: through [place] 00 enteral Medical tube Branch daily. escitalopra 2020-0 Yes [id number] 20mg Take 1 [facility] m oxalate 4-27 tablet ity of 20 mg 00:00: through [facility] 00 enteral Medical tube Branch daily. furosemide 2020-0 Yes [id number] 40mg Take 1 [facility] 40 mg 4-27 tablet by ity of tablet 00:00: mouth [place] 00 every Medical morning Branch and evening. metFORMIN 2020-0 Yes [id number] 500mg Take 1 [facility] 500 mg 4-27 tablet ity of tablet 00:00: through [place] 00 enteral Medical tube 2 Branch (two) times daily with meals. ondansetron 2020-0 Yes [id number] 4mg Take 1 [facility] (ZOFRAN 4-27 tablet by ity of ODT) 4 mg 00:00: mouth [place] disintegrat 00 every 8 Medic al ing tablet (eight) Branch hours as needed for Nausea and Vomiting (N/V). traZODone 0 Yes [id number] 100mg Take 1 [facility] 100 mg 4-27 tablet ity of tablet 00:00: through [place] 00 enteral Medical tube at Branch bedtime. aspirin 81 2020-0 Yes [id number] 81mg Take 1 [facility] mg chewable 4-27 tablet ity of tablet 00:00: through [place] enteral Medical tube Branch daily. atorvastati 0 Yes [id number] 80mg Take 1 [facility] n 80 mg 4-27 tablet ity of tablet 00:00: through [place] enteral Medical tube at Branch bedtime. ipratropium 0 Yes [id number] 3mL Inhale 3 [facility] -albuteroL 4-27 mL every 6 ity of 0.5 mg-3 00:00: (six) [place] mg(2.5 mg 00 hours as Medica l base)/3 mL needed for [facility] nebulizer Wheezing solution or Shortness of Breath. acetaminoph 0 Yes [id number] 325mg Take 10.25 [facility] en 160 mg/5 4-27 mL through it y of mL liquid 00:00: enteral [place] 00 tube every Medical 6 (six) Branch hours as needed (pain, fever). pantoprazol 0 Yes [id number] 40mg Take 2 [facility] e 20 mg EC 4-27 tablets by ity of tablet 00:00: mouth daily. Medical Branch amLODIPine 2020-0 Yes [id number] 5mg Take 1 [facility] 5 mg tablet 4-27 tablet ity of 00:00: through [place] enteral Medical tube Branch daily. calcitrioL 2020-0 Yes [id number] .5ug Take 1 [facility] 0.5 mcg 4-27 capsule by ity of capsule 00:00: mouth daily. Medical Branch clopidogreL 2020-0 Yes [id number] 75mg Take 1 [facility] 75 mg 4-27 tablet ity of tablet 00:00: through [place] enteral Medical tube Branch daily. escitalopra 2020-0 Yes [id number] 20mg Take 1 [facility] m oxalate 4-27 tablet ity of 20 mg 00:00: through [place] [address] enteral Medical tube Branch daily. furosemide 2020-0 Yes [id number] 40mg Take 1 [facility] 40 mg 4-27 tablet by ity of tablet 00:00: mouth [place] 00 every Medical morning Branch and evening. metFORMIN 2020-0 Yes [id number] 500mg Take 1 [facility] 500 mg 4-27 tablet ity of tablet 00:00: through [place] 00 enteral Medical tube 2 Branch (two) times daily with meals. ondansetron 2020-0 Yes [id number] 4mg Take 1 [facility] (ZOFRAN 4-27 tablet by ity of ODT) 4 mg 00:00: mouth [place] disintegrat 00 every 8 Medic al ing tablet (eight) Branch hours as needed for Nausea and Vomiting (N/V). traZODone 2020-0 Yes [id number] 100mg Take 1 [facility] 100 mg 4-27 tablet ity of tablet 00:00: through [place] 00 enteral Medical tube at [place] bedtime. aspirin 81 2020-0 Yes [id number] 81mg Take 1 [facility] mg chewable 4-27 tablet ity of tablet 00:00: through [place] 00 enteral Medical tube Branch daily. atorvastati 2020-0 Yes [id number] 80mg Take 1 [facility] n 80 mg 4-27 tablet ity of tablet 00:00: through [place] 00 enteral Medical tube at Branch bedtime. ipratropium 2020-0 Yes [id number] 3mL Inhale 3 [facility] -albuteroL 4-27 mL every 6 ity of 0.5 mg-3 00:00: (six) [place] mg(2.5 mg 00 hours as Medica l base)/3 mL needed for [facility] nebulizer Wheezing solution or Shortness of Breath. acetaminoph 2020-0 Yes [id number] 325mg Take 10.25 [facility] en 160 mg/5 4-27 mL through it y of mL liquid 00:00: enteral [place] 00 tube every Medical 6 (six) Branch hours as needed (pain, fever). pantoprazol 2020-0 Yes [id number] 40mg Take 2 [facility] e 20 mg EC 4-27 tablets by ity of tablet 00:00: mouth [place] 00 daily. Medical Branch amLODIPine 2020-0 Yes [id number] 5mg Take 1 [facility] 5 mg tablet 4-27 tablet ity of 00:00: through [place] 00 enteral Medical tube Branch daily. calcitrioL 2020-0 Yes [id number] .5ug Take 1 [facility] 0.5 mcg 4-27 capsule by ity of capsule 00:00: mouth [place] 00 daily. Medical Branch clopidogreL 2020-0 Yes [id number] 75mg Take 1 [facility] 75 mg 4-27 tablet ity of tablet 00:00: through [place] 00 enteral Medical tube Branch daily. escitalopra 2020-0 Yes [id number] 20mg Take 1 [facility] m oxalate 4-27 tablet ity of 20 mg 00:00: through [facility] 00 enteral Medical tube Branch daily. furosemide 2020-0 Yes [id number] 40mg Take 1 [facility] 40 mg 4-27 tablet by ity of tablet 00:00: mouth [place] 00 every Medical morning Branch and evening. metFORMIN 2020-0 Yes [id number] 500mg Take 1 [facility] 500 mg 4-27 tablet ity of tablet 00:00: through [place] 00 enteral Medical tube 2 Branch (two) times daily with meals. ondansetron 0 Yes [id number] 4mg Take 1 [facility] (ZOFRAN 4-27 tablet by ity of ODT) 4 mg 00:00: mouth [place] disintegrat 00 every 8 Medic al ing tablet (eight) Branch hours as needed for Nausea and Vomiting (N/V). traZODone 0 Yes [id number] 100mg Take 1 [facility] 100 mg 4-27 tablet ity of tablet 00:00: through [place] 00 enteral Medical tube at Branch bedtime. aspirin 81 2020-0 Yes [id number] 81mg Take 1 [facility] mg chewable 4-27 tablet ity of tablet 00:00: through [place] 00 enteral Medical tube Branch daily. atorvastati 0 Yes [id number] 80mg Take 1 [facility] n 80 mg 4-27 tablet ity of tablet 00:00: through [place] 00 enteral Medical tube at Branch bedtime. ipratropium 2020-0 Yes [id number] 3mL Inhale 3 [facility] -albuteroL 4-27 mL every 6 ity of 0.5 mg-3 00:00: (six) [place] mg(2.5 mg 00 hours as Medica l base)/3 mL needed for [facility] nebulizer Wheezing solution or Shortness of Breath. acetaminoph 2020-0 Yes [id number] 325mg Take 10.25 [facility] en 160 mg/5 4-27 mL through it y of mL liquid 00:00: enteral [place] 00 tube every Medical 6 (six) Branch hours as needed (pain, fever). pantoprazol 0 Yes [id number] 40mg Take 2 [facility] e 20 mg EC 4-27 tablets by ity of tablet 00:00: mouth [place] 00 daily. Medical Branch amLODIPine 0 Yes [id number] 5mg Take 1 [facility] 5 mg tablet 4-27 tablet ity of 00:00: through [place] enteral Medical tube Branch daily. calcitrioL 0 Yes [id number] .5ug Take 1 [facility] 0.5 mcg 4-27 capsule by ity of capsule 00:00: mouth [place] 00 daily. Medical Branch clopidogreL 0 Yes [id number] 75mg Take 1 [facility] 75 mg 4-27 tablet ity of tablet 00:00: through [place] enteral Medical tube Branch daily. escitalopra Yes [id number] 20mg Take 1 [facility] m oxalate 4-27 tablet ity of 20 mg 00:00: through [place] [address] enteral Medical tube Branch daily. furosemide 0 Yes [id number] 40mg Take 1 [facility] 40 mg 4-27 tablet by ity of tablet 00:00: mouth [place] 00 every Medical morning Branch and evening. metFORMIN Yes [id number] 500mg Take 1 [facility] 500 mg 4-27 tablet ity of tablet 00:00: through [place] enteral Medical tube 2 Branch (two) times daily with meals. ondansetron 0 Yes [id number] 4mg Take 1 [facility] (ZOFRAN 4-27 tablet by ity of ODT) 4 mg 00:00: mouth [place] disintegrat 00 every 8 Medic al ing tablet (eight) Branch hours as needed for Nausea and Vomiting (N/V). traZODone 0 Yes [id number] 100mg Take 1 [facility] 100 mg 4-27 tablet ity of tablet 00:00: through [place] 00 enteral Medical tube at Branch bedtime. aspirin 81 2020-0 Yes [id number] 81mg Take 1 [facility] mg chewable 4-27 tablet ity of tablet 00:00: through [place] 00 enteral Medical tube Branch daily. atorvastati 2020-0 Yes [id number] 80mg Take 1 [facility] n 80 mg 4-27 tablet ity of tablet 00:00: through [place] 00 enteral Medical tube at Branch bedtime. ipratropium 2021-0 Yes [id number] 3mL Inhale 3 [facility] -albuteroL 4-27 mL every 6 ity of 0.5 mg-3 00:00: (six) [place] mg(2.5 mg 00 hours as Medica l base)/3 mL needed for [facility] nebulizer Wheezing solution or Shortness of Breath. acetaminoph Yes [id number] 325mg Take 10.25 [facility] en 160 mg/5 4-27 mL through it y of mL liquid 00:00: enteral [place] 00 tube every Medical 6 (six) Branch hours as needed (pain, fever). pantoprazol Yes [id number] 40mg Take 2 [facility] e 20 mg EC 4-27 tablets by ity of tablet 00:00: mouth [place] 00 daily. Medical Branch amLODIPine 0 Yes [id number] 5mg Take 1 [facility] 5 mg tablet 4-27 tablet ity of 00:00: through [place] 00 enteral Medical tube Branch daily. calcitrioL Yes [id number] .5ug Take 1 [facility] 0.5 mcg 4-27 capsule by ity of capsule 00:00: mouth [place] 00 daily. Medical Branch clopidogreL 0 Yes [id number] 75mg Take 1 [facility] 75 mg 4-27 tablet ity of tablet 00:00: through [place] 00 enteral Medical tube Branch daily. escitalopra Yes [id number] 20mg Take 1 [facility] m oxalate 4-27 tablet ity of 20 mg 00:00: through [place] tablet 00 enteral Medical tube Branch daily. furosemide Yes [id number] 40mg Take 1 [facility] 40 mg 4-27 tablet by ity of tablet 00:00: mouth [place] 00 every Medical morning Branch and evening. metFORMIN Yes [id number] 500mg Take 1 [facility] 500 mg 4-27 tablet ity of tablet 00:00: through [place] 00 enteral Medical tube 2 Branch (two) times daily with meals. ondansetron 0 Yes [id number] 4mg Take 1 [facility] (ZOFRAN 4-27 tablet by ity of ODT) 4 mg 00:00: mouth [place] disintegrat 00 every 8 Medic al ing tablet (eight) Branch hours as needed for Nausea and Vomiting (N/V). traZODone 0 Yes [id number] 100mg Take 1 [facility] 100 mg 4-27 tablet ity of tablet 00:00: through [place] enteral Medical tube at Branch bedtime. aspirin 81 2020-0 Yes [id number] 81mg Take 1 [facility] mg chewable 4-27 tablet ity of tablet 00:00: through [place] enteral Medical tube Branch daily. atorvastati 2020-0 Yes [id number] 80mg Take 1 [facility] n 80 mg 4-27 tablet ity of tablet 00:00: through [place] enteral Medical tube at Branch bedtime. ipratropium 2020-0 Yes [id number] 3mL Inhale 3 [facility] -albuteroL 4-27 mL every 6 ity of 0.5 mg-3 00:00: (six) [place] mg(2.5 mg 00 hours as Medica l base)/3 mL needed for [facility] nebulizer Wheezing solution or Shortness of Breath. acetaminoph 2020-0 Yes [id number] 325mg Take 10.25 [facility] en 160 mg/5 4-27 mL through it y of mL liquid 00:00: enteral [place] 00 tube every Medical 6 (six) Branch hours as needed (pain, fever). pantoprazol 2020-0 Yes [id number] 40mg Take 2 [facility] e 20 mg EC 4-27 tablets by ity of tablet 00:00: mouth [place] daily. Medical Branch amLODIPine 2020-0 Yes [id number] 5mg Take 1 [facility] 5 mg tablet 4-27 tablet ity of 00:00: through [place] enteral Medical tube Branch daily. calcitrioL 2020-0 Yes [id number] .5ug Take 1 [facility] 0.5 mcg 4-27 capsule by ity of capsule 00:00: mouth [place] daily. Medical Branch clopidogreL 2020-0 Yes [id number] 75mg Take 1 [facility] 75 mg 4-27 tablet ity of tablet 00:00: through [place] enteral Medical tube Branch daily. escitalopra 2020-0 Yes [id number] 20mg Take 1 [facility] m oxalate 4-27 tablet ity of 20 mg 00:00: through [facility] 00 enteral Medical tube Branch daily. furosemide 2020-0 Yes [id number] 40mg Take 1 [facility] 40 mg 4-27 tablet by ity of tablet 00:00: mouth [place] 00 every Medical morning Branch and evening. metFORMIN 2020-0 Yes [id number] 500mg Take 1 [facility] 500 mg 4-27 tablet ity of tablet 00:00: through enteral Medical tube 2 Branch (two) times daily with meals. ondansetron 0 Yes [id number] 4mg Take 1 [facility] (ZOFRAN 4-27 tablet by ity of ODT) 4 mg 00:00: mouth [place] disintegrat 00 every 8 Medic al ing tablet (eight) Branch hours as needed for Nausea and Vomiting (N/V). traZODone 0 Yes [id number] 100mg Take 1 [facility] 100 mg 4-27 tablet ity of tablet 00:00: through enteral Medical tube at Branch bedtime. aspirin 81 0 Yes [id number] 81mg Take 1 [facility] mg chewable 4-27 tablet ity of tablet 00:00: through enteral Medical tube Branch daily. atorvastati 0 Yes [id number] 80mg Take 1 [facility] n 80 mg 4-27 tablet ity of tablet 00:00: through enteral Medical tube at Branch bedtime. ipratropium 0 Yes [id number] 3mL Inhale 3 [facility] -albuteroL 4-27 mL every 6 ity of 0.5 mg-3 00:00: (six) [place] mg(2.5 mg 00 hours as Medica l base)/3 mL needed for [facility] nebulizer Wheezing solution or Shortness of Breath. acetaminoph 0 Yes [id number] 325mg Take 10.25 [facility] en 160 mg/5 4-27 mL through it y of mL liquid 00:00: enteral 00 tube every Medical 6 (six) Branch hours as needed (pain, fever). pantoprazol 0 Yes [id number] 40mg Take 2 [facility] e 20 mg EC 4-27 tablets by ity of tablet 00:00: mouth 00 daily. Medical Branch amLODIPine 2020-0 Yes [id number] 5mg Take 1 [facility] 5 mg tablet 4-27 tablet ity of 00:00: through enteral Medical tube Branch daily. calcitrioL 0 Yes [id number] .5ug Take 1 [facility] 0.5 mcg 4-27 capsule by ity of capsule 00:00: mouth 00 daily. Medical Branch clopidogreL 0 Yes [id number] 75mg Take 1 [facility] 75 mg 4-27 tablet ity of tablet 00:00: through [place] 00 enteral Medical tube Branch daily. escitalopra Yes [id number] 20mg Take 1 Univers m oxalate 4-27 tablet ity of 20 mg 00:00: through [place] tablet 00 enteral Medical tube Branch daily. furosemide Yes [id number] 40mg Take 1 [facility] 40 mg 4-27 tablet by ity of tablet 00:00: mouth [place] 00 every Medical morning Branch and evening. metFORMIN Yes [id number] 500mg Take 1 [facility] 500 mg 4-27 tablet ity of tablet 00:00: through [place] 00 enteral Medical tube 2 Branch (two) times daily with meals. ondansetron Yes [id number] 4mg Take 1 Univers (ZOFRAN 4-27 tablet by ity of ODT) 4 mg 00:00: mouth [place] disintegrat 00 every 8 Medic al ing tablet (eight) Branch hours as needed for Nausea and Vomiting (N/V). traZODone Yes [id number] 100mg Take 1 [facility] 100 mg 4-27 tablet ity of tablet 00:00: through [place] 00 enteral Medical tube at Branch bedtime. aspirin 81 Yes [id number] 81mg Take 1 [facility] mg chewable 4-27 tablet ity of tablet 00:00: through [place] 00 enteral Medical tube Branch daily. atorvastati Yes [id number] 80mg Take 1 Univers n 80 mg 4-27 tablet ity of tablet 00:00: through [place] 00 enteral Medical tube at Branch bedtime. ipratropium Yes [id number] 3mL Inhale 3 Univers -albuteroL 4-27 mL every 6 ity of 0.5 mg-3 00:00: (six) [place] mg(2.5 mg 00 hours as Medica l base)/3 mL needed for [facility] nebulizer Wheezing solution or Shortness of Breath. acetaminoph Yes [id number] 325mg Take 10.25 Univers en 160 mg/5 4-27 mL through it y of mL liquid 00:00: enteral [place] 00 tube every Medical 6 (six) Branch hours as needed (pain, fever). pantoprazol Yes [id number] 40mg Take 2 Univers e 20 mg EC 4-27 tablets by ity of tablet 00:00: mouth [place] 00 daily. Medical Branch amLODIPine 0 Yes [id number] 5mg Take 1 Univers 5 mg tablet 4-27 tablet ity of 00:00: through [place] enteral Medical tube Branch daily. calcitrioL Yes [id number] .5ug Take 1 Univers 0.5 mcg 4-27 capsule by ity of capsule 00:00: mouth [place] 00 daily. Medical Branch clopidogreL Yes [id number] 75mg Take 1 Univers 75 mg 4-27 tablet ity of tablet 00:00: through [place] enteral Medical tube Branch daily. escitalopra Yes [id number] 20mg Take 1 Univers m oxalate 4-27 tablet ity of 20 mg 00:00: through [facility] 00 enteral Medical tube Branch daily. furosemide Yes [id number] 40mg Take 1 [facility] 40 mg 4-27 tablet by ity of tablet 00:00: mouth [place] 00 every Medical morning Branch and evening. metFORMIN Yes [id number] 500mg Take 1 [facility] 500 mg 4-27 tablet ity of tablet 00:00: through [place] enteral Medical tube 2 Branch (two) times daily with meals. ondansetron Yes [id number] 4mg Take 1 Univers (ZOFRAN 4-27 tablet by ity of ODT) 4 mg 00:00: mouth [place] disintegrat 00 every 8 Medic al ing tablet (eight) Branch hours as needed for Nausea and Vomiting (N/V). traZODone 0 Yes [id number] 100mg Take 1 [facility] 100 mg 4-27 tablet ity of tablet 00:00: through [place] 00 enteral Medical tube at Branch bedtime. aspirin 81 0 Yes [id number] 81mg Take 1 [facility] mg chewable 4-27 tablet ity of tablet 00:00: through [place] 00 enteral Medical tube Branch daily. atorvastati Yes [id number] 80mg Take 1 Univers n 80 mg 4-27 tablet ity of tablet 00:00: through [place] enteral Medical tube at Branch bedtime. ipratropium 0 Yes [id number] 3mL Inhale 3 Univers -albuteroL 4-27 mL every 6 ity of 0.5 mg-3 00:00: (six) [place] mg(2.5 mg 00 hours as Medica l base)/3 mL needed for [facility] nebulizer Wheezing solution or Shortness of Breath. metoprolol 2020- No [id number] 100mg Take 10 mL Univers 10 mg/mL 11-08 through ity of 00:00: 00:00 enteral [place] 00 :00 tube every Medical 12 Branch (twelve) hours. metoprolol 2020- No [id number] 100mg Take 10 mL Univers 10 mg/mL 11-08 through ity of 00:00: 00:00 enteral [place] 00 :00 tube every Medical 12 Branch (twelve) hours. pantoprazol 2020- No [id number] 40mg Take 20 mL Univers e 11-08 through ity of (PROTONIX) 00:00: 00:00 enteral [place] as 2 mg/mL 00 :00 tube Medical oral daily. Branch suspension gabapentin 2020- No [id number] 300mg Take 6 mL Univers 250 mg/5 mL 11-08 through ity of solution 00:00: 00:00 enteral [place] 00 :00 tube 3 Medical (three) Branch times daily. metoprolol Yes 100mg 100 mg, Uni vers (LOPRESSOR) 11-07 Enteral, ity of 10 mg/mL 21:15: Q12H ABX, [place] oral 00 First dose Medical suspension (after Branch 100 mg last modificati on) on Sat11/07/20 at 1615, Until Discontinu ed, Routine iohexoL 2020- No [id number] 35mL 35 mL, Uni vers (OMNIPAQUE 11-07 Injection, it y of 300-50 mL)) 20:40: 21:03 TITRATE - [place] injection 00 :00 FOR Medical 35 mL PROCEDURE Branch USE, 1 dose, Starting Sat11/07/20 at 1540, Until Sat11/07/20 at 1603, Routine, Other ceFAZolin Yes Slow IV Unive rs (ANCEF) 11-07 Push, PRN, ity of injection 20:30: Starting [place] 46 Mon Medical 11/07/20 at Branch 1530, Until Discontinu ed, KATHY lidocaine 2021-0 Yes PRN, Univers 1% (PF) 11-07 Starting ity of (XYLOCAINE) 20:27: Mon [place] injection 00 11/07/20 at [facility] 1527, Branch Until Discontinu ed, Routine iohexol 202- No [id number] 100mL 100 mL, Univers (OMNIPAQUE 11-07 Oral, ity of 350 BULK) 14:45: 14:00 ONCE, 1 [place] 100 mL 00 :00 dose, Mon Medical 11/07/20 at Branch 0945, KATHY gabapentin 2020- Yes 300mg 300 mg, Uni vers (NEURONTIN) 11-06 Enteral, ity of 250 mg/5 mL 01:00: TID, First [place] solution 00 dose on Medical 300 mg Sat Branch 11/05/20 at 2000, Until Discontinu ed, Routine HYDROcodone 2020- No 5mg 5 mg, Univ ers -acetaminop 11-05 Oral, ity of hen (HYCET) 20:07: 20:37 ONCE, 1 [place] 7.5-325 00 :00 dose, Sat Medical mg/15 mL 11/05/20 at [facility] h solution 5 1515, mg Routine acetaminoph Yes 325mg 325 mg, Un michael en 11-05 Enteral, ity of (TYLENOL) 20:06: Q6HPRN, [place] 160 mg/5 mL 54 Starting [facility] liquid 325 Sat [place] mg 11/05/20 at 1506, Until Discontinu ed, Routine, pain, fever Potassium 2020-2020- No 20meq 20 mEq, Uni vers Bicarb-Citr 11-05 Enteral, ity of ic Acid 11:45: 14:22 ONCE, 1 [place] (EFFER-K) 00 :00 dose, Sat Medic al effervescen 11/05/20 at anch t tablet 20 0645, mEq Routine furosemide 2020- No 20mg 20 mg, [facility] [place] [facility] ers (LASIX) 11-04 Slow IV ity of injection 22:00: 23:28 Push, [place] 20 mg 00 :00 ONCE, 1 Medical dose, Fri Branch 11/04/20 at 1700, Routine metoprolol 2020-0 2021- No 75mg 75 mg, Univ ers (LOPRESSOR) 11-04 Enteral, ity of 10 mg/mL 21:15: 18:40 Q12H ABX, You as oral 00 :26 First dose Medical suspension (after Branch 75 mg last modificati on) on Sat11/04/20 at 1615, Until Discontinu ed, Routine iohexol No [id number] 25mL 25 mL, Un michael (OMNIPAQUE 11-04 Oral, ity of 350 BULK) 14:30: 14:40 ONCE, 1 [place] 25 mL 00 :00 dose, Sat Medical 11/04/20 at Branch 0930, KATHY cranberry Yes 1{tbl} Take 1 [facility] [place] [facility] ers fruit 11-03 tablet by ity of (CRANBERRY) 23:40: mouth [place] 450 mg Tab 55 daily. [facility] Branch furosemide 2020- No 20mg 20 mg, Univ ers (LASIX) 11-03 Slow IV ity of injection 21:58: 22:08 Push, [place] 20 mg 00 :00 ONCE, 1 Medical dose, [place] 11/03/20 at 1700, Routine metoprolol No 75mg 75 mg, Univ ers (LOPRESSOR) 11-03 Enteral, ity of 10 mg/mL 01:00: 11:44 BID, First [place] oral 00 :22 dose Medical suspension (after Branch 75 mg last modificati on) on Sat11/02/20 at 2000, Until Discontinu ed, Routine lactulose No 15mL 15 mL, Unive rs (CEPHULAC) 11-03 Oral, BID, it y of solution 15 01:00: 02:18 First dose [place] mL 00 :17 on Sat Medical 11/02/20 at Branch 1999, Until Discontinu ed, Routine metOLazone No 2.5mg 2.5 mg, Un michael (ZAROXOLYN 11-02 Enteral, ity of 2.5MG) 22:15: 21:58 DAILY, [place] tablet 2.5 00 :18 First dose Med ical mg (after Branch last modificati on) on Sat11/02/20 at 1715, Until Discontinu ed, Routine furosemide Yes 20mg 20 mg, Unive rs (LASIX) 11-02 Slow IV ity of injection 20:30: Push, [place] 20 mg 00 DAILY, Medical First dose Branch on Sat11/02/20 at 1530, Until Discontinu ed, Routine Potassium 2020- No 40meq 40 mEq, Uni vers Bicarb-Citr 11-02 Enteral, ity of ic Acid 19:15: 20:52 ONCE, 1 [place] (EFFER-K) 00 :00 dose, Sat Medic al effervescen 11/02/20 at Br anch t tablet 40 1415, mEq Routine pantoprazol Yes 40mg 40 mg, Univ ers e 11-02 Oral, BID, ity of (PROTONIX) 13:00: First dose [place] 2 mg/mL 00 on Sat Medical oral 11/02/20 at Branch suspension 0800, 40 mg Until Discontinu ed, Routine Sliding Yes Subcutaneo Univ ers Scale 11-02 us, Q6H, ity of Insulin - 05:00: First dose [place] Lispro 00 (after Medical (HumaLOG) + last Branch Fsbg modificati Testing on) on Sat11/02/20 at 0000, Until Discontinu ed, Routine bacitracin- Yes Topical, Un michael polymyxin B 11-01 [id number], ity of (POLYSPORIN 20:26: Starting [place] ) 41 Tue Medical 500-10,000 11/01/20 at Bra ndh unit/gram 1526, topical Until ointment Discontinu ed, Routine, rash Sliding 2020- No Subcutaneo Uni vers Scale 11-01 04 us, Q3H, ity of Insulin - 04:00: 04:13 First dose [place] Lispro 00 :59 (after Medical (HumaLOG) + last Branch Fsbg modificati Testing on) on Sat10/31/20 at 2300, Until Discontinu ed, Routine D5W IV 2020- No 1000mL at 70 Univers infusion 11-01 04-20 mL/hr, IV ity o f 1,000 mL 03:15: 13:03 Infusion, You as 00 :39 CONTINUOUS Medical , Starting Branch 10/31/20 at 2215, Until Sat11/01/20 at 0803, Routine insulin Yes 14U 14 Units, Unive rs glargine 10-31 Subcutaneo ity o f (LANTUS 14:00: us, DAILY, [place] U-100) 00 First dose Medical injection (after Branch 14 Units last modificati on) on [facility] 10/31/20 at 0900, Until Discontinu ed, Routine Potassium 2020- No 40meq 40 mEq, Uni vers Bicarb-Citr 10-31 Enteral, ity of ic Acid 13:15: 13:13 ONCE, 1 [place] (EFFER-K) 00 :00 dose, [facility] Medic al effervescen 10/31/20 at Br anch t tablet 40 0815, mEq Routine furosemide 2020- No 20mg 20 mg, Univ ers (LASIX) 10-31 Slow IV ity of injection 05:45: 08:40 Push, [place] 20 mg 00 :00 ONCE, 1 Medical dose, [facility] 10/31/20 at 0045, Routine insulin Yes 4U 4 Units, Univer s lispro 10-30 Subcutaneo ity of (human) 22:00: us, TID [place] (HumaLOG 00 MEALS, Medical U-100) First dose Branch injection 4 (after Units last modificati on) on [place] 10/30/20 at 1700, Until Discontinu ed, Routine Sliding 2020- No Subcutaneo Uni vers Scale 10-30 us, Q4H, ity of Insulin - 21:00: 02:25 First dose [place] Lispro 00 :53 on [facility] (HumaLOG) + 10/30/20 at Br anch Fsbg 1600, Testing Until Discontinu ed, Routine ferrous Yes 300mg 300 mg, Univer s sulfate 300 10-30 Enteral, Q it y of mg (60 mg 14:00: OTHERDAY, You as iron)/5 mL 00 First dose Med ical solution on [place] Branch 300 mg 10/30/20 at 0900, Until Discontinu ed, Routine insulin 2020- No 6U 6 Units, Unive rs glargine 10-30 Subcutaneo ity of (LANTUS 14:00: 19:53 us, DAILY, You as U-100) 00 :49 First dose Medical injection 6 (after Branch Units last modificati on) on [place] 10/30/20 at 0900, Until Discontinu ed, Routine metoprolol 2020- No 50mg 50 mg, Univ ers (LOPRESSOR) 10-30 Enteral, ity of 10 mg/mL 13:00: 16:55 BID, First [place] oral 00 :29 dose Medical suspension (after Branch 50 mg last modificati on) on [place] 10/30/20 at 0800, Until Discontinu ed, Routine insulin 2020- No 2U 2 Units, Unive rs lispro 10-30 Subcutaneo ity of (human) 13:00: 19:53 us, TID [place] (HumaLOG 00 :49 MEALS, Medical U-100) First dose Branch injection 2 on [place] Units 10/30/20 at 0800, Until Discontinu ed, Routine Potassium 2020- No 20meq 20 mEq, Uni vers Bicarb-Citr 10-30 Enteral, ity of ic Acid 07:15: 06:24 ONCE, 1 [place] (EFFER-K) 00 :00 dose, [place] Medic al effervescen 10/30/20 at Br anch t tablet 20 0215, mEq Routine atorvastati Yes 80mg 80 mg, Univ ers n (LIPITOR) 10-30 Enteral, ity of tablet 80 02:00: QHS, First [place] mg 00 dose on Medical Sat Branch 10/29/20 at 2100, Until Discontinu ed, Routine metoprolol 2020- No 37.5mg 37.5 mg, Univers (LOPRESSOR) 10-30 Oral, BID, i ty of 10 mg/mL 01:00: 12:32 First dose [place] oral 00 :16 (after Medical suspension last Branch 37.5 mg modificati on) on [facility] 10/29/20 at 2000, Until Discontinu ed, Routine metoprolol 2020- No 5mg 5 mg, Slow Univers (LOPRESSOR) 10-29 IV Push, ity of injection 5 21:00: 20:08 ONCE, 1 [place] mg 00 :00 dose, Sat Medical 10/29/20 at Branch 1600, Routine acetaminoph No 325mg 325 mg, U nivers en 10-2924 Enteral, ity of (TYLENOL) 20:00: 20:08 Q6HPRN, [place] 160 mg/5 mL 00 :01 Starting Medi lizzy liquid 325 Sat Branch mg 10/29/20 at 1500, Until 11/05/20 at 1508, Routine, Temp > 38.5 C ipratropium Yes 3mL 3 mL, Unive rs -albuteroL 10-29 Inhalation ity of (DUONEB) 16:30: , Q6HPRN, [place] 0.5 mg-3 00 Starting Medical mg(2.5 mg Sat Branch base)/3 mL 10/29/20 at nebulizer 1130, solution 3 Until mL Discontinu ed, Routine, Wheezing, Shortness of Breath heparin 2020- No 12U/kg/ 12 Univer s 25,000 10-2919 h Units/kg/h ity of Units/250 14:54: 19:36 r ?66.3 kg [place] mL 41 :31 (7.956 Medical (Premixed mL/hr, Branch Bag) in rounded to 0.45 % NS 7.96 mL/hr), IV Infusion, TITRATE, Parameters in Admin. Instr., Starting 10/29/20 at 0954
CA UTION - If LMWH given in ER, AVOID bolus and start next dose/drip 12 hrs after ER dosage.&nb sp; M ust program rate using programmab le infusion pump.&nbsp ; Mirela ck with the ordering provider first prior to any administra tion should the patient be on existing/a dditional anticoagul ant therapy.&n bsp; Range, Dosing and Testing&nb sp; - aPTT < 40: & nbsp;Bolus 3000 units, increase rate 100 units/hr.& nbsp;- aPTT 40-49:&nbs p; In crease rate 50 units/hr. - aPTT 50-70:&nbs p; NO CHANGE.&nb sp;- aPTT 71-85:&nbs p; De crease rate 50 units/hr.& nbsp;- aPTT 86-100:&nb sp; H old 30 minutes, decrease rate 100 units/hr.& nbsp;- aPTT 101-150:&n bsp; Hold 60 minutes, decrease rate 150 units/hr.& nbsp;- aPTT > 150: Hold 60 minutes, decrease rate 300 units/hr.& nbsp;&nbsp ;Check aPTT 6 hours after initiation , then Q6H after every change, aPTT Q12H once therapeuti c levels are reached.&a mp;nbsp;&n bsp;DO NOT ADJUST INITIAL BOLUS OR INITIAL INFUSION RATE.
pantoprazol 2020- No 40mg 40 mg, IV Univers e 10-29 Piggyback, ity of (PROTONIX) 13:00: 12:19 Q12H, [place] 40 mg in 00 :21 First dose Medic al NaCl 0.9% on Sat Branch (NS) 100 mL 10/29/20 at MINI-BAG 0800, Until Discontinu ed, 100 mL NaCl 0.45% 2020- No 250mL at 100 Uni vers (1/2NS) 10-29 04-18 mL/hr, 250 ity o f bolus 11:15: 11:59 mL, IV [place] infusion 00 :32 Piggyback, Medic al 250 mL ONCE, 1 Branch dose, 10/29/20 at 0615, KATHY Potassium No 40meq 40 mEq, Uni vers Bicarb-Citr 10-29 Oral, ity of ic Acid 05:45: 05:07 ONCE, 1 [place] (EFFER-K) 00 :00 dose, Sat Medic al effervescen 10/29/20 at Br anch t tablet 40 0045, mEq Routine KCL 2020- No 40meq 40 mEq, IV Unive rs (POTASSIUM 10-29 Piggyback, it y of CHLORIDE) 04:30: 04:33 ONCE, 1 [place] 40 mEq in 00 :00 dose, Fri Medic al NaCl 0.9% 10/28/20 at Bran ch (NS) 2330, 250 piggyback mL sulfur No [id number] 4mL 4 mL, Univ ers hexafluorid 10-28 Intravenou i ty of e microsphr 21:00: 21:00 s, ONCE, 1 [place] (LUMASON) 00 :00 dose, Fri Medic al injection 4 10/28/20 at Br anch mL 1600, Routine
clergy member approving Restricted medication : CODY KISHORE SALAM sodium No 4mL 4 mL, Univers chloride 7% 10-28 Inhalation i ty of (HYPER-JOSE) 17:00: 14:40 , QID, You as nebulizer 00 :45 First dose Medi lizzy solution 4 (after Branch mL last modificati on) on 10/28/20 at 1200, Until Discontinu ed, Routine dextrose 50 Yes 25mL 25 mL, Univ ers % in water 10-28 Slow IV ity of (D50W) 15:27: Push, PRN, [place] injection 45 Starting Medica l 25 mL Fri Branch 10/28/20 at 1027, Until Discontinu ed, KATHY, Blood Glucose < or = 70 mg/dL and patient is unable to swallow or has mental status changes. piperacilli No 3.375g 3.375 g, Univers n-tazobacta 10-28 IV ity of m (ZOSYN) 15:15: 20:24 Piggyback, [place] 3.375 g in 00 :00 Q6H ABX, Medic al NaCl 0.9% First dose Bran ch (NS) 100 mL on Sat MINI-BAG 10/28/20 at 1015, Until Discontinu ed, 100 mL
R russ for Anti-Infec tive: Empiric Therapy for Suspected Infection< br>Empiric Therapy Site: Respirator y
Durat ion of therapy: 7 days acetaminoph 2020- No 650mg 650 mg, U nivers en 10-28 Enteral, ity of (TYLENOL) 14:04: 19:50 Q4HPRN, [place] 160 mg/5 mL 58 :04 Starting Medi lizzy liquid 650 Fri Branch mg 10/28/20 at 0904, Until 10/29/20 at 1450, Routine, fever Sliding 2020- Subcutaneo Uni vers Scale 10-27 us, Q3H, ity of Insulin - 13:00: 19:53 First dose [place] Lispro 00 :49 (after Medical (HumaLOG) + last Branch Fsbg modificati Testing on) on Francie 10/27/20 at 0800, Until Discontinu ed, Routine metoprolol 2020- No 25mg 25 mg, Univ ers (LOPRESSOR) 10-27 Oral, BID, i ty of 10 mg/mL 13:00: 22:34 First dose [place] oral 00 :39 on Sat Medical suspension 10/27/20 at Bra nch 25 mg 0800, Until Discontinu ed, Routine furosemide 2020- No 20mg 20 mg, Univ ers (LASIX) 10-27 Slow IV ity of injection 06:45: 06:00 Push, ONCE [place] 20 mg 00 :00 NOW, 1 Medical dose, [place]ie Branch 10/27/20 at 0145, Routine metoprolol 2020- No 2.5mg 2.5 mg, Un michael (LOPRESSOR) 10-27 Intravenou i ty of injection 05:00: 05:04 s, Q6H, 1 [place] 2.5 mg 00 :00 dose, Medical First dose Branch (after last modificati on) on Francie 10/27/20 at 0000, Routine amLODIPine 2020- No 5mg 5 mg, Unive rs benzoate 10-27 Oral, ity of (KATERZIA) 02:15: 17:26 DAILY, [place] 1 mg/mL 00 :04 First dose Medica l oral on Sat Branch suspension 10/26/20 at 5 mg 2115, Until Discontinu ed, Routine traZODone 2020- No 100mg 100 mg, Uni vers (COMPOUNDED 10-27 Enteral, ity of ) oral 02:15: 13:45 QHS, First [place] suspension 00 :47 dose on Medica l 100 mg Wed Branch 10/26/20 at 2115, Until Discontinu ed, Routine D5W 0.45% 2020- No 1000mL at 200 Uni vers NaCl 10-27 04-15 mL/hr, ity of (1/2NS) IV 00:45: 11:20 1,000 mL, [place] infusion 00 :30 IV Medical 1,000 mL Infusion, Branch CONTINUOUS , Starting Sat10/26/20 at 1945, Until Francie 10/27/20 at 0620, Routine D5W 0.45% 2020- No 1000mL at 200 Uni vers NaCl 10-26 04-14 mL/hr, ity of (1/2NS) IV 19:45: 22:13 1,000 mL, [place] infusion 00 :00 IV Medical 1,000 mL Infusion, Branch ONCE, 1 dose, Sat10/26/20 at 1445, Routine NaCl 0.45% 2020- No 1000mL at 200 Un michael (1/2NS) IV 10-26-14 mL/hr, ity of infusion 13:15: 17:00 1,000 mL, You as 1,000 mL 00 :00 IV Medical Infusion, Branch ONCE, 1 dose, Sat10/26/20 at 0815, Routine KCL No 30meq 30 mEq, IV Unive rs (POTASSIUM 10-26 Piggyback, it y of CHLORIDE) 12:30: 13:26 ONCE, 1 [place] 30 mEq in 00 :00 dose, Wed Medic al NaCl 0.9% 10/26/20 at Bran ch (NS) 0730, 250 piggyback mL metoprolol 2020- No 2.5mg 2.5 mg, Un michael (LOPRESSOR) 10-25 Intravenou i ty of injection 23:00: 02:04 s, Q6H, [place] 2.5 mg 00 :18 First dose Medical (after Branch last modificati on) on Sat10/25/20 at 1800, Until Discontinu ed, Routine metoprolol 2020- No 5mg 5 mg, Unive rs (LOPRESSOR) 10-25 Intravenou i ty of injection 5 21:00: 20:00 s, ONCE, 1 [place] mg 00 :00 dose, [facility] Medical 10/25/20 at Branch 1600, Routine sodium 2020- No 4mL 4 mL, Univers chloride 7% 10-25 Inhalation i ty of (HYPER-JOSE) 16:15: 14:04 , BID, You as nebulizer 00 :03 First dose Medi lizzy solution 4 on Branch mL 10/25/20 at 1115, Until Discontinu ed, Routine ampicillin 2020- No 2000mg 2,000 mg, Univers (POLYCILLIN 10-25 IV ity of -N) 2,000 16:15: 14:06 Piggyback, [place] mg in NaCl 00 :40 Q8H ABX, Medic al 0.9% (NS) First dose Bran ch 100 mL on [facility] MINI-BAG 10/25/20 at 1115, Until Discontinu ed, 100 mL
R russ for Anti-Infec tive: Documented Infection< br>Documen tennille Infection Site: Urine<br&g t;Duration of Therapy: 7 days lactulose 2020- No 45mL 45 mL, Unive rs (CEPHULAC) 10-25 Enteral, ity of solution 45 16:15: 15:35 ONCE, 1 [place] mL 00 :00 dose, [facility] 10/25/20 at Branch 1115, Routine ipratropium No 3mL 3 mL, Univ ers -albuteroL 10-25 Inhalation it y of (DUONEB) 16:13: 16:16 , QIDPRN, You as 0.5 mg-3 26 :25 Starting Medical mg(2.5 mg [facility] base)/3 mL 10/25/20 at nebulizer 1113, solution 3 Until Sat mL 10/29/20 at 1116, Routine, Wheezing sennosides- Yes 1{tbl} 1 tablet, Univers docusate 10-25 Enteral, ity of sodium 15:15: DAILY, [place] (SENOKOT-S) 00 First dose Me dical 8.6-50 mg on [facility] per tablet 10/25/20 at 1 tablet 1015, Until Discontinu ed, Routine KCL 2020- No 30meq 30 mEq, IV Unive rs (POTASSIUM 10-25 Piggyback, it y of CHLORIDE) 13:30: 13:54 ONCE, 1 [place] 30 mEq in 00 :00 dose, Tue Medic al NaCl 0.9% 10/25/20 at Bran ch (NS) 0830, 250 piggyback mL azithromyci 2020- No 500mg 500 mg, IV Univers n 10-25 Piggyback, ity of (ZITHROMAX) 01:30: 15:05 Q24H ABX, [place] 500 mg in 00 :04 3 doses, Medica l NaCl 0.9% First dose Bran ch (NS) 250 mL on Mon VIAL-MATE 10/24/20 at IV 2030, Last piggyback dose on Sat10/26/20 at 2030, 250 mL
Reas on for Anti-Infec tive: Empiric Therapy for Suspected Infection< br>Empiric Therapy Site: Respirator y
Durat ion of therapy: 72 hours metoprolol 2020- No 12.5mg 12.5 mg, Univers tartrate 10-25 Oral, BID, ity of (LOPRESSOR) 01:00: 20:17 First dose [place] half tablet 00 :28 on Mon Medica l 12.5 mg 10/24/20 at Branch 2000, Until Discontinu ed, Routine dexMEDEtomi 2020- No .2ug/kg 0.2-1.5 Univers dine 200 10-24 04-15 /h mcg/kg/hr ity o f mcg in 0.9 20:59: 12:12 ?66 kg [place] % NaCl 50 25 :42 (3.3-24.75 Medi lizzy mL mL/hr), IV Branch (PRECEDEX) Infusion, RTU IV TITRATE, infusion Sedation-R ASS score (0 to -1), Starting 10/24/20 at 1559
In itiate infusion at 0.2 mcg/kg/hr and titrate by 0.1 mcg/kg/hr every 30 minutes to goal sedation score. Maximum dose = 1.5 mcg/kg/hr. If goal not maintained at maximum allowed dose, contact prescriber .
polyethylen No 17g 17 g, Univ ers e glycol 10-24 Oral, ity of 3350 powder 19:30: 20:17 DAILY, You as 17 g 00 :44 First dose Medical on [facility] 10/24/20 at 1430, Until Discontinu ed, Routine vancomycin 2020- No 15mg/kg 1,000 mg Univers (VANCOCIN) 10-23 (rounded ity of 1,000 mg in 18:30: 00:35 from 919.5 [place] NaCl 0.9% 00 :47 mg = 15 Medical (NS) 250 mL mg/kg Branch VIAL-MATE ?61.3 kg), IV IV piggyback Piggyback, Q24H ABX, First dose (after last modificati on) on [place] 10/23/20 at 1330, Until Discontinu ed, 250 mL
Reas on for Anti-Infec tive: Empiric Therapy for Suspected Infection< br>Empiric Therapy Site: Respirator y
Durat ion of therapy: 72 hours aspirin Yes 81mg 81 mg, Univers chewable 10-23 Oral, ity of tablet 81 14:00: DAILY, [place] mg 00 First dose Medical on [facility] 10/23/20 at 0900, Until Discontinu ed, Routine pantoprazol No 40mg 40 mg, IV Univers e 10-23 Piggyback, ity of (PROTONIX) 13:00: 14:12 Q12H, [place] 40 mg in 00 :01 First dose Medic al NaCl 0.9% on [facility] (NS) 100 mL 10/23/20 at MINI-BAG 0800, Until Discontinu ed, 100 mL Sliding 2020- No Subcutaneo Uni vers Scale 10-23 us, TID ity of Insulin - 13:00: 12:58 MEALS+HS, [place] Lispro 00 :53 First dose Medical (HumaLOG) + on [facility] Fsbg 10/23/20 at Testing 0800, Until Discontinu ed, Routine potassium No 40meq 40 mEq, IV Univers chloride in 10-23 Piggyback, i ty of water (KCL) 10:30: 10:30 ONCE, 1 [place] 40 mEq/100 00 :00 dose, Sun Medi lizzy mL 40 mEq 10/23/20 at [facility] ch piggyback 0530 meropenem 2020- No 500mg 500 mg, IV Univers (MERREM) 10-23 Piggyback, ity of 500 mg in 02:30: 15:05 Administer [place] NaCl 0.9% 00 :04 over 60 Medical (NS) 100 mL Minutes, Bran ch MINI-BAG Q8H ABX, First dose (after last modificati on) on 10/22/20 at 2130, Until Discontinu ed, Routine
Restricte d use approved by: [facility]
R russ for Anti-Infec tive: Empiric Therapy for Suspected Infection< br>Empiric Therapy Site: Respirator y
Durat ion of therapy: 72 hours NaCl 0.9% 2020- No 1000mL at 250 Uni vers (NS) IV 10-23 mL/hr, IV ity of infusion 00:15: 04:35 Infusion, You as 1,000 mL 00 :00 ONCE, 1 Medical dose, Sat Branch 10/22/20 at 1915, Routine pantoprazol No 8mg/h 8 mg/hr U nivers e 10-22 (50 ity of (PROTONIX) 20:45: 10:08 mL/hr), IV [place] 80 mg in 00 :37 Infusion, Medica l NaCl 0.9% CONTINUOUS Bran ch (NS) 500 mL , Starting infusion 10/22/20 at 1545 iron 2020- No 1000mg 1,000 mg, Unive rs dextran 10-22 IV ity of (INFED) 20:45: 03:00 [place]fusion, [place] 1,000 mg in 00 :00 ONCE, 1 Medic al NaCl 0.9% dose, Sat Branc h (NS) 500 mL 10/22/20 at IV infusion 1545, 500 mL iron 2020- No 25mg 25 mg, IV Univers dextran 10-22 Piggyback, ity o f (INFED) 25 20:45: 22:05 ONCE, 1 You as mg in NaCl 00 :00 dose, Sat [facility] lizzy 0.9% (NS) 10/22/20 at Bran ch 100 mL IV 1545, 100 piggyback mL meropenem 2020- No 500mg 500 mg, IV Univers (MERREM) 10-22-10 Piggyback, ity of 500 mg in 18:45: 19:01 Administer [place] NaCl 0.9% 00 :00 over 60 Medical (NS) 100 mL Minutes, Bran ch MINI-BAG ONCE, 1 dose, 10/22/20 at 1345, KATHY
Re stricted use approved by: [facility] 8TH FLOOR
R russ for Anti-Infec tive: Empiric Therapy for Suspected Infection< br>Empiric Therapy Site: Respirator y
Durat ion of therapy: 7 days vancomycin 2020- No 15mg/kg 1,000 mg Univers (VANCOCIN) 10-22 (rounded ity of 1,000 mg in 18:45: 21:13 from 919.5 [place] NaCl 0.9% 00 :00 mg = 15 Medical (NS) 250 mL mg/kg Branch VIAL-MATE ?61.3 kg), IV IV piggyback Piggyback, ONCE, 1 dose, 10/22/20 at 1345, 250 mL
Reas on for Anti-Infec tive: Empiric Therapy for Suspected Infection< br>Empiric Therapy Site: Respirator y
Durat ion of therapy: 72 hours propofoL IV 2020- No 5ug/kg/ 5-50 Un michael infusion 10-22 04-15 min mcg/kg/min ity of 18:20: 12:12 ?61.3 kg [place] 00 :42 (1.839-18. Medical 39 mL/hr, Branch rounded to 1.84-18.39 mL/hr), IV Infusion, TITRATE, Sedation-R ASS score (0 to -1), Starting 10/22/20 at 1320
In itiate infusion at 5 mcg/kg/min and titrate by 5 mcg/kg/min every 30 seconds to 10 minutes to goal sedation score. Maximum dose = 50 mcg/kg/min . If goal not maintained at maximum allowed dose, contact prescriber . &nbs p;Tubing and unused portions of vials should be discarded after 12 hours.
escitalopra Yes 20mg Take 20 mg Univers m oxalate 4-10 by mouth ity of 20 mg 16:24: daily. [place] tablet 17 [facility] Branch traZODone Yes 100mg Take 100 Uni vers 100 mg 4-10 mg by ity of tablet 16:24: mouth at [place] [address] bedtime. Medical Branch insulin NPH 2020- No inject Uni vers hum/reg 4-10 04-10 under the ity of insulin hm 16:24: 00:00 skin. [place] (NOVOLIN 17 :00 Medical 70/30 SC) Branch glucagon Yes 1mg 1 mg, Univers (GLUCAGEN 4-10 Intramuscu ity of DIAGNOSTIC 16:21: [place], PRN, [place] KIT) 56 Starting Medical injection 1 Sat Branch mg 10/22/20 at 1121, Until Discontinu ed, KATHY, Blood Glucose < or = 70 mg/dL and patient is unable to swallow or has mental changes. insulin 2021- No 5U inject 5 Unive rs lispro 100 07-29-16 Units ity of unit/mL pen 00:00: 05:59 under the [place] injector 00 :00 skin 3 Medical (three) Branch times daily. insulin 2021- No 5U inject 5 Unive rs lispro 100 -29 07-16 Units ity of unit/mL pen 00:00: 05:59 under the [place] injector 00 :00 skin 3 Medical (three) Branch times daily. insulin 2021- No 5U inject 5 Unive rs lispro 100 -15 -16 Units ity of unit/mL pen 00:00: 05:59 under the [place] injector 00 :00 skin 3 Medical (three) Branch times daily. insulin 2021- No 5U inject 5 Unive rs lispro 100 -15 -16 Units ity of unit/mL pen 00:00: 05:59 under the [place] injector 00 :00 skin 3 Medical (three) Branch times daily. insulin 2021- No 5U inject 5 Unive rs lispro 100 15 01-16 Units ity of unit/mL pen 00:00: 05:59 under the [place] injector 00 :00 skin 3 Medical (three) Branch times daily. insulin 2021- No 5U inject 5 Unive rs lispro 100 1-15 -16 Units ity of unit/mL pen 00:00: 05:59 under the [place] injector 00 :00 skin 3 Medical (three) Branch times daily. insulin 2021- No 5U inject 5 Unive rs lispro 100 1-15 -16 Units ity of unit/mL pen 00:00: 05:59 under the [place] injector 00 :00 skin 3 Medical (three) Branch times daily. insulin 2021- No 5U inject 5 Unive rs lispro 100 -15 -16 Units ity of unit/mL pen 00:00: 05:59 under the [place] injector 00 :00 skin 3 Medical (three) Branch times daily. insulin 2021- No 5U inject 5 Unive rs lispro 100 -15 -16 Units ity of unit/mL pen 00:00: 05:59 under the [place] injector 00 :00 skin 3 Medical (three) Branch times daily. insulin 2021- No 5U inject 5 Unive rs lispro 100 -15 -16 Units ity of unit/mL pen 00:00: 05:59 under the [place] injector 00 :00 skin 3 Medical (three) Branch times daily. insulin 2021- No 5U inject 5 Unive rs lispro 100 -15 -16 Units ity of unit/mL pen 00:00: 05:59 under the [place] injector 00 :00 skin 3 Medical (three) Branch times daily. insulin 2021- No 5U inject 5 Unive rs lispro 100 1-15 -16 Units ity of unit/mL pen 00:00: 05:59 under the [place] injector 00 :00 skin 3 Medical (three) Branch times daily. insulin 2021- No 5U inject 5 Unive rs lispro 100 1-15 01-16 Units ity of unit/mL pen 00:00: 05:59 under the [place] injector 00 :00 skin 3 Medical (three) Branch times daily. gabapentin 2019-07 Yes 300mg Take 300 Un imchael 300 mg 2-21 mg by ity of capsule 00:00: mouth 3 00 (three) Medical times Branch daily. gabapentin 2019-07- No 300mg Take 300 U nivers 300 mg 2-21 04-27 mg by ity of capsule 00:00: 00:00 mouth 3 [place] 00 :00 (three) Medical times Branch daily. gabapentin 2019-07- No 300mg Take 300 U nivers 300 mg 2-21 04-27 mg by ity of capsule 00:00: 00:00 mouth 3 [place] 00 :00 (three) Medical times Branch daily. amLODIPine 2019-07 Yes 1{tbl} Take 1 Uni vers 5 mg tablet 2-03 tablet by ity of 00:00: mouth 00 daily. Medical Branch calcitrioL 2019-07 Yes 1{capsu Take 1 Un michael 0.5 mcg 2-03 le} capsule by ity of capsule 00:00: mouth 00 daily. Medical Branch insulin 2019-07 Yes 15U inject 15 Unive rs glargine 2-03 Units ity of (LANTUS 00:00: under the [place] U-100 00 skin Medical INSULIN) daily. Branch 100 unit/mL injection insulin 2019-07 Yes 15U inject 15 Unive rs glargine 2-03 Units ity of (LANTUS 00:00: under the [place] U-100 00 skin Medical INSULIN) daily. Branch 100 unit/mL injection insulin 2019-07 Yes 15U inject 15 Unive rs glargine 2-03 Units ity of (LANTUS 00:00: under the [place] U-100 00 skin Medical INSULIN) daily. Branch 100 unit/mL injection insulin 2019-07 Yes 15U inject 15 Unive rs glargine 2-03 Units ity of (LANTUS 00:00: under the [place] U-100 00 skin Medical INSULIN) daily. Branch 100 unit/mL injection insulin 2019-07 Yes 15U inject 15 Unive rs glargine 2-03 Units ity of (LANTUS 00:00: under the [place] U-100 00 skin Medical INSULIN) daily. Branch 100 unit/mL injection insulin 2019-07 Yes 15U inject 15 Unive rs glargine 2-03 Units ity of (LANTUS 00:00: under the [place] U-100 00 skin Medical INSULIN) daily. Branch 100 unit/mL injection insulin 2019- Yes 15U inject 15 Unive rs glargine 2-03 Units ity of (LANTUS 00:00: under the [place] U-100 00 skin Medical INSULIN) daily. Branch 100 unit/mL injection insulin 2019-1 Yes 15U inject 15 Unive rs glargine 2-03 Units ity of (LANTUS 00:00: under the [place] U-100 00 skin Medical INSULIN) daily. Branch 100 unit/mL injection insulin 2019- Yes 15U inject 15 Unive rs glargine 2-03 Units ity of (LANTUS 00:00: under the [place] U-100 00 skin Medical INSULIN) daily. Branch 100 unit/mL injection insulin 2019- Yes 15U inject 15 Unive rs glargine 2-03 Units ity of (LANTUS 00:00: under the [place] U-100 00 skin Medical INSULIN) daily. Branch 100 unit/mL injection insulin 2019- Yes 15U inject 15 Unive rs glargine 2-03 Units ity of (LANTUS 00:00: under the [place] U-100 00 skin Medical INSULIN) daily. Branch 100 unit/mL injection insulin 2019- Yes 15U inject 15 Unive rs glargine 2-03 Units ity of (LANTUS 00:00: under the [place] U-100 00 skin Medical INSULIN) daily. Branch 100 unit/mL injection insulin 2019- Yes 15U inject 15 Unive rs glargine 2-03 Units ity of (LANTUS 00:00: under the [place] U-100 00 skin Medical INSULIN) daily. Branch 100 unit/mL injection amLODIPine 2019-07- No 1{tbl} Take 1 Un michael 5 mg tablet 08-17 tablet by it y of 00:00: 00:00 mouth [place] 00 :00 daily. Medical Branch calcitrioL 2019-07- No 1{capsu Take 1 U nivers 0.5 mcg 08-17 le} capsule by ity o f capsule 00:00: 00:00 mouth [place] 00 :00 daily. Medical Branch amLODIPine 2019-07- No 1{tbl} Take 1 Un michael 5 mg tablet 08-17 tablet by it y of 00:00: 00:00 mouth [place] 00 :00 daily. Medical Branch calcitrioL 2019-07- No 1{capsu Take 1 U nivers 0.5 mcg 08-17} capsule by ity o f capsule 00:00: 00:00 mouth [place] 00 :00 daily. Medical Branch insulin NPH 2019-07 Yes inject Univ ers hum/reg 0-20 under the ity of insulin hm 21:24: skin. [place] (NOVO[address] 70/30 DC) Branch escitalopra 2019-07 Yes 20mg Take 20 mg Univers m oxalate 0-20 by mouth ity of 20 mg 21:24: daily. [place] tablet 44 Medical Branch traZODone 2019-07 Yes 100mg Take 100 Uni vers 100 mg 0-20 mg by ity of tablet 21:24: mouth at [place] [address] bedtime. Medical Branch insulin NPH 2019-07 Yes inject Univ ers hum/reg 0-20 under the ity of insulin hm 21:24: skin. [place] ([address] 70/30 DC) Branch escitalopra 2019-07 Yes 20mg Take 20 mg Univers m oxalate 0-20 by mouth ity of 20 mg 21:24: daily. [facility] 44 Medical Branch traZODone 2019-07 Yes 100mg Take 100 Uni vers 100 mg 0-20 mg by ity of tablet 21:24: mouth at [place] [address] bedtime. Medical Branch insulin NPH 2019-07 Yes inject Univ ers hum/reg 0-20 under the ity of insulin hm 21:24: skin. [place] (NOVO[address] 70/30 DC) [place] escitalopra 2019-07 Yes 20mg Take 20 mg Univers m oxalate 0-20 by mouth ity of 20 mg 21:24: daily. [place] tablet 44 [facility] traZODone 2019-07 Yes 100mg Take 100 Uni vers 100 mg 0-20 mg by ity of tablet 21:24: mouth at [place] [address] bedtime. Medical Branch metFORMIN Yes [id number] 500mg Take 1 Univers 500 mg 4-16 tablet by ity of tablet 00:00: mouth 2 [place] 00 (two) Medical times Branch daily with meals. ondansetron Yes [id number] 4mg Take 1 Univers (ZOFRAN 4-16 tablet by ity of ODT) 4 mg 00:00: mouth [place] disintegrat 00 every 8 Medic al ing tablet (eight) Branch hours as needed for Nausea and Vomiting (N/V). metFORMIN 2020-0 Yes [id number] 500mg Take 1 Univers 500 mg 4-16 tablet by ity of tablet 00:00: mouth 2 [place] (two) Medical times Branch daily with meals. ondansetron 2020-0 Yes [id number] 4mg Take 1 Univers (ZOFRAN 4-16 tablet by ity of ODT) 4 mg 00:00: mouth [place] disintegrat 00 every 8 Medic al ing tablet (eight) Branch hours as needed for Nausea and Vomiting (N/V). metFORMIN 2020-0 Yes [id number] 500mg Take 1 Univers 500 mg 4-16 tablet by ity of tablet 00:00: mouth 2 (two) Medical times Branch daily with meals. ondansetron 2020-0 Yes [id number] 4mg Take 1 Univers (ZOFRAN 4-16 tablet by ity of ODT) 4 mg 00:00: mouth [place] disintegrat 00 every 8 Medic al ing tablet (eight) Branch hours as needed for Nausea and Vomiting (N/V). metFORMIN 2020-0 Yes [id number] 500mg Take 1 Univers 500 mg 4-16 tablet by ity of tablet 00:00: mouth (two) Medical times Branch daily with meals. ondansetron 2020-0 Yes [id number] 4mg Take 1 Univers (ZOFRAN 4-16 tablet by ity of ODT) 4 mg 00:00: mouth [place] disintegrat 00 every 8 Medic al ing tablet (eight) Branch hours as needed for Nausea and Vomiting (N/V). metFORMIN 2020-0 Yes [id number] 500mg Take 1 Univers 500 mg 4-16 tablet by ity of tablet 00:00: mouth 2 (two) Medical times Branch daily with meals. ondansetron 2020-0 Yes [id number] 4mg Take 1 Univers (ZOFRAN 4-16 tablet by ity of ODT) 4 mg 00:00: mouth [place] disintegrat 00 every 8 Medic al ing tablet (eight) Branch hours as needed for Nausea and Vomiting (N/V). metFORMIN 2020-0 Yes [id number] 500mg Take 1 Univers 500 mg 4-16 tablet by ity of tablet 00:00: mouth 2 [place] (two) Medical times Branch daily with meals. ondansetron 2020-0 Yes [id number] 4mg Take 1 Univers (ZOFRAN 4-16 tablet by ity of ODT) 4 mg 00:00: mouth [place] disintegrat 00 every 8 Medic al ing tablet (eight) Branch hours as needed for Nausea and Vomiting (N/V). metFORMIN 2020-0 Yes [id number] 500mg Take 1 Univers 500 mg 4-16 tablet by ity of tablet 00:00: mouth 2 [place] 00 (two) Medical times Branch daily with meals. ondansetron 2020-0 Yes [id number] 4mg Take 1 Univers (ZOFRAN 4-16 tablet by ity of ODT) 4 mg 00:00: mouth [place] disintegrat 00 every 8 Medic al ing tablet (eight) Branch hours as needed for Nausea and Vomiting (N/V). metFORMIN 2020-0 Yes [id number] 500mg Take 1 Univers 500 mg 4-16 tablet by ity of tablet 00:00: mouth 2 [place] (two) Medical times Branch daily with meals. ondansetron 2020-0 Yes [id number] 4mg Take 1 Univers (ZOFRAN 4-16 tablet by ity of ODT) 4 mg 00:00: mouth [place] disintegrat 00 every 8 Medic al ing tablet (eight) Branch hours as needed for Nausea and Vomiting (N/V). metFORMIN 2020-0 Yes [id number] 500mg Take 1 Univers 500 mg 4-16 tablet by ity of tablet 00:00: mouth 2 (two) Medical times Branch daily with meals. ondansetron 2020-0 Yes [id number] 4mg Take 1 Univers (ZOFRAN 4-16 tablet by ity of ODT) 4 mg 00:00: mouth [place] disintegrat 00 every 8 Medic al ing tablet (eight) Branch hours as needed for Nausea and Vomiting (N/V). metFORMIN 2020-0 Yes [id number] 500mg Take 1 Univers 500 mg 4-16 tablet by ity of tablet 00:00: mouth 2 00 (two) Medical times Branch daily with meals. ondansetron 2020-0 Yes [id number] 4mg Take 1 Univers (ZOFRAN 4-16 tablet by ity of ODT) 4 mg 00:00: mouth [place] disintegrat 00 every 8 Medic al ing tablet (eight) Branch hours as needed for Nausea and Vomiting (N/V). metFORMIN 2020-0 Yes [id number] 500mg Take 1 Univers 500 mg 4-16 tablet by ity of tablet 00:00: mouth 2 (two) Medical times Branch daily with meals. ondansetron 2020-0 Yes [id number] 4mg Take 1 Univers (ZOFRAN 4-16 tablet by ity of ODT) 4 mg 00:00: mouth [place] disintegrat 00 every 8 Medic al ing tablet (eight) Branch hours as needed for Nausea and Vomiting (N/V). metFORMIN 2020-0 Yes [id number] 500mg Take 1 Univers 500 mg 4-16 tablet by ity of tablet 00:00: mouth 2 [place] (two) Medical times Branch daily with meals. ondansetron 2020-0 Yes [id number] 4mg Take 1 Univers (ZOFRAN 4-16 tablet by ity of ODT) 4 mg 00:00: mouth [place] disintegrat 00 every 8 Medic al ing tablet (eight) Branch hours as needed for Nausea and Vomiting (N/V). metFORMIN 2020-0 Yes [id number] 500mg Take 1 Univers 500 mg 4-16 tablet by ity of tablet 00:00: mouth (two) Medical times Branch daily with meals. ondansetron 2020-0 Yes [id number] 4mg Take 1 Univers (ZOFRAN 4-16 tablet by ity of ODT) 4 mg 00:00: mouth [place] disintegrat 00 every 8 Medic al ing tablet (eight) Branch hours as needed for Nausea and Vomiting (N/V). metFORMIN 2020-0 Yes [id number] 500mg Take 1 Univers 500 mg 4-16 tablet by ity of tablet 00:00: mouth (two) Medical times Branch daily with meals. ondansetron 2020-0 Yes [id number] 4mg Take 1 Univers (ZOFRAN 4-16 tablet by ity of ODT) 4 mg 00:00: mouth [place] disintegrat 00 every 8 Medic al ing tablet (eight) Branch hours as needed for Nausea and Vomiting (N/V). metFORMIN 2020-0 Yes [id number] 500mg Take 1 Univers 500 mg 4-16 tablet by ity of tablet 00:00: mouth 2 [place] (two) Medical times Branch daily with meals. ondansetron 2020-0 Yes [id number] 4mg Take 1 Univers (ZOFRAN 4-16 tablet by ity of ODT) 4 mg 00:00: mouth [place] disintegrat 00 every 8 Medic al ing tablet (eight) Branch hours as needed for Nausea and Vomiting (N/V). metFORMIN 2020-0 Yes [id number] 500mg Take 1 Univers 500 mg 4-16 tablet by ity of tablet 00:00: mouth 2 [place] 00 (two) Medical times Branch daily with meals. ondansetron 2020-0 Yes [id number] 4mg Take 1 Univers (ZOFRAN 4-16 tablet by ity of ODT) 4 mg 00:00: mouth [place] disintegrat 00 every 8 Medic al ing tablet (eight) Branch hours as needed for Nausea and Vomiting (N/V). metFORMIN 2020-0 Yes [id number] 500mg Take 1 Univers 500 mg 4-16 tablet by ity of tablet 00:00: mouth 2 [place] (two) Medical times Branch daily with meals. ondansetron 2020-0 Yes [id number] 4mg Take 1 Univers (ZOFRAN 4-16 tablet by ity of ODT) 4 mg 00:00: mouth [place] disintegrat 00 every 8 Medic al ing tablet (eight) Branch hours as needed for Nausea and Vomiting (N/V). metFORMIN 2020-0 Yes [id number] 500mg Take 1 Univers 500 mg 4-16 tablet by ity of tablet 00:00: mouth 2 (two) Medical times Branch daily with meals. ondansetron 2020-0 Yes [id number] 4mg Take 1 Univers (ZOFRAN 4-16 tablet by ity of ODT) 4 mg 00:00: mouth [place] disintegrat 00 every 8 Medic al ing tablet (eight) Branch hours as needed for Nausea and Vomiting (N/V). metFORMIN 2020-0 Yes [id number] 500mg Take 1 Univers 500 mg 4-16 tablet by ity of tablet 00:00: mouth 2 00 (two) Medical times Branch daily with meals. ondansetron 2020-0 Yes [id number] 4mg Take 1 Univers (ZOFRAN 4-16 tablet by ity of ODT) 4 mg 00:00: mouth [place] disintegrat 00 every 8 Medic al ing tablet (eight) Branch hours as needed for Nausea and Vomiting (N/V). metFORMIN 2020-0 Yes [id number] 500mg Take 1 Univers 500 mg 4-16 tablet by ity of tablet 00:00: mouth 2 (two) Medical times Branch daily with meals. ondansetron 2020-0 Yes [id number] 4mg Take 1 Univers (ZOFRAN 4-16 tablet by ity of ODT) 4 mg 00:00: mouth [place] disintegrat 00 every 8 Medic al ing tablet (eight) Branch hours as needed for Nausea and Vomiting (N/V). metFORMIN 2020-0 Yes [id number] 500mg Take 1 Univers 500 mg 4-16 tablet by ity of tablet 00:00: mouth 2 [place] (two) Medical times Branch daily with meals. ondansetron 2020-0 Yes [id number] 4mg Take 1 Univers (ZOFRAN 4-16 tablet by ity of ODT) 4 mg 00:00: mouth [place] disintegrat 00 every 8 Medic al ing tablet (eight) Branch hours as needed for Nausea and Vomiting (N/V). metFORMIN 2020-0 Yes [id number] 500mg Take 1 Univers 500 mg 4-16 tablet by ity of tablet 00:00: mouth (two) Medical times Branch daily with meals. ondansetron 2020-0 Yes [id number] 4mg Take 1 Univers (ZOFRAN 4-16 tablet by ity of ODT) 4 mg 00:00: mouth [place] disintegrat 00 every 8 Medic al ing tablet (eight) Branch hours as needed for Nausea and Vomiting (N/V). metFORMIN 2020-0 Yes [id number] 500mg Take 1 [facility] 500 mg 4-16 tablet by ity of tablet 00:00: mouth (two) Medical times Branch daily with meals. ondansetron 2020-0 Yes [id number] 4mg Take 1 Univers (ZOFRAN 4-16 tablet by ity of ODT) 4 mg 00:00: mouth [place] disintegrat 00 every 8 Medic al ing tablet (eight) Branch hours as needed for Nausea and Vomiting (N/V). metFORMIN 2020-0 Yes [id number] 500mg Take 1 [facility] 500 mg 4-16 tablet by ity of tablet 00:00: mouth 2 (two) Medical times Branch daily with meals. ondansetron 2020-0 Yes [id number] 4mg Take 1 Univers (ZOFRAN 4-16 tablet by ity of ODT) 4 mg 00:00: mouth [place] disintegrat 00 every 8 Medic al ing tablet (eight) Branch hours as needed for Nausea and Vomiting (N/V). metFORMIN 2020-0 Yes [id number] 500mg Take 1 [facility] 500 mg 4-16 tablet by ity of tablet 00:00: mouth 2 (two) Medical times Branch daily with meals. ondansetron 2020-0 Yes [id number] 4mg Take 1 Univers (ZOFRAN 4-16 tablet by ity of ODT) 4 mg 00:00: mouth [place] disintegrat 00 every 8 Medic al ing tablet (eight) Branch hours as needed for Nausea and Vomiting (N/V). metFORMIN 2020-0 Yes [id number] 500mg Take 1 [facility] 500 mg 4-16 tablet by ity of tablet 00:00: mouth (two) Medical times Branch daily with meals. ondansetron 2020-0 Yes [id number] 4mg Take 1 Univers (ZOFRAN 4-16 tablet by ity of ODT) 4 mg 00:00: mouth [place] disintegrat 00 every 8 Medic al ing tablet (eight) Branch hours as needed for Nausea and Vomiting (N/V). metFORMIN 2020-0 Yes [id number] 500mg Take 1 Univers 500 mg 4-16 tablet by ity of tablet 00:00: mouth (two) Medical times Branch daily with meals. ondansetron 2020-0 Yes [id number] 4mg Take 1 Univers (ZOFRAN 4-16 tablet by ity of ODT) 4 mg 00:00: mouth [place] disintegrat 00 every 8 Medic al ing tablet (eight) Branch hours as needed for Nausea and Vomiting (N/V). metFORMIN 2020-0 Yes [id number] 500mg Take 1 [facility] 500 mg 4-16 tablet by ity of tablet 00:00: mouth (two) Medical times Branch daily with meals. ondansetron 2020-0 Yes [id number] 4mg Take 1 Univers (ZOFRAN 4-16 tablet by ity of ODT) 4 mg 00:00: mouth [place] disintegrat 00 every 8 Medic al ing tablet (eight) Branch hours as needed for Nausea and Vomiting (N/V). metFORMIN 2020-0 Yes [id number] 500mg Take 1 [facility] 500 mg 4-16 tablet by ity of tablet 00:00: mouth 2 [place] 00 (two) Medical times Branch daily with meals. ondansetron Yes [id number] 4mg Take 1 Univers (ZOFRAN 4-16 tablet by ity of ODT) 4 mg 00:00: mouth [place] disintegrat 00 every 8 Medic al ing tablet (eight) Branch hours as needed for Nausea and Vomiting (N/V). metFORMIN 2020- No [id number] 500mg Take 1 Univers 500 mg 4-16 04-27 tablet by ity of tablet 00:00: 00:00 mouth 2 [place] 00 :00 (two) Medical times Branch daily with meals. ondansetron 2020- No [id number] 4mg Take 1 Univers (ZOFRAN 4-16 04-27 tablet by ity of ODT) 4 mg 00:00: 00:00 mouth [place] disintegrat 00 :00 every 8 Medic al ing tablet (eight) Branch hours as needed for Nausea and Vomiting (N/V). metFORMIN 2020- No [id number] 500mg Take 1 Univers 500 mg 4-16 04-27 tablet by ity of tablet 00:00: 00:00 mouth 2 [place] 00 :00 (two) Medical times Branch daily with meals. ondansetron 2020- No [id number] 4mg Take 1 Univers (ZOFRAN 4-16 04-27 tablet by ity of ODT) 4 mg 00:00: 00:00 mouth [place] disintegrat 00 :00 every 8 Medic al ing tablet (eight) Branch hours as needed for Nausea and Vomiting (N/V). insulin NPH 2020- No 18U inject 18 Univers human 4-15 04-15 Units ity of isophane 15:00: 00:00 under the You as (HUMULIN N 08 :00 skin 2 Medical NPH INSULIN (two) Branch KWIKPEN SC) times daily. atorvastati 0 Yes 80mg 80 mg, Univ ers n (LIPITOR) 4-15 Oral, QHS, it y of tablet 80 02:00: First dose [place] mg 00 on [facility] 10/27/19 at Branch 2100, Until Discontinu ed, Routine amoxicillin 2019- Yes [id number] 500mg Take 1 Univers 500 mg 4-15 capsule by ity of capsule 00:00: mouth 2 [place] 00 (two) Medical times Branch daily. Lactobacill 2019-0 Yes [id number] 1{tbl} Take 1 Univers us 4-15 tablet by ity of Acidophilus 00:00: mouth 2 You as 1 billion 00 (two) Medical cell Tab times Branch daily. traMADol 50 2020-0 Yes [id number] 50mg Take 1 Univers mg tablet 4-15 tablet by ity o f 00:00: mouth [place] 00 every 8 Medical (eight) Branch hours as needed for Pain (scale 7-10). amoxicillin 2020-0 Yes [id number] 500mg Take 1 [facility] 500 mg 4-15 capsule by ity of capsule 00:00: mouth 2 [place] 00 (two) Medical times Branch daily. Lactobacill 2020-0 Yes [id number] 1{tbl} Take 1 Univers us 4-15 tablet by ity of Acidophilus 00:00: mouth 2 You as 1 billion 00 (two) Medical cell Tab times Branch daily. traMADol 50 2020-0 Yes [id number] 50mg Take 1 [facility] mg tablet 4-15 tablet by ity o f 00:00: mouth [place] 00 every 8 Medical (eight) Branch hours as needed for Pain (scale 7-10). amoxicillin 2020-0 Yes [id number] 500mg Take 1 [facility] 500 mg 4-15 capsule by ity of capsule 00:00: mouth 2 [place] 00 (two) Medical times Branch daily. Lactobacill 2020-0 Yes [id number] 1{tbl} Take 1 Univers us 4-15 tablet by ity of Acidophilus 00:00: mouth 2 [place] as 1 billion 00 (two) Medical cell Tab times Branch daily. traMADol 50 2020-0 Yes [id number] 50mg Take 1 [facility] mg tablet 4-15 tablet by ity o f 00:00: mouth [place] 00 every 8 Medical (eight) Branch hours as needed for Pain (scale 7-10). amoxicillin 2020-0 Yes [id number] 500mg Take 1 [facility] 500 mg 4-15 capsule by ity of capsule 00:00: mouth 2 [place] 00 (two) Medical times Branch daily. Lactobacill 2020-0 Yes [id number] 1{tbl} Take 1 Univers us 4-15 tablet by ity of Acidophilus 00:00: mouth 2 You as 1 billion 00 (two) Medical cell Tab times Branch daily. traMADol 50 2020-0 Yes [id number] 50mg Take 1 [facility] mg tablet 4-15 tablet by ity o f 00:00: mouth [place] 00 every 8 Medical (eight) Branch hours as needed for Pain (scale 7-10). amoxicillin 2020-0 Yes [id number] 500mg Take 1 [facility] 500 mg 4-15 capsule by ity of capsule 00:00: mouth 2 (two) Medical times Branch daily. Lactobacill 2020-0 Yes [id number] 1{tbl} Take 1 [facility] us 4-15 tablet by ity of Acidophilus 00:00: mouth 2 You as 1 billion 00 (two) Medical cell Tab times Branch daily. traMADol 50 2020-0 Yes [id number] 50mg Take 1 [facility] mg tablet 4-15 tablet by ity o f 00:00: mouth [place] 00 every 8 Medical (eight) Branch hours as needed for Pain (scale 7-10). amoxicillin 2020-0 Yes [id number] 500mg Take 1 [facility] 500 mg 4-15 capsule by ity of capsule 00:00: mouth 2 (two) Medical times Branch daily. Lactobacill 2020-0 Yes [id number] 1{tbl} Take 1 [facility] us 4-15 tablet by ity of Acidophilus 00:00: mouth 2 [place] 1 billion 00 (two) Medical cell Tab times Branch daily. traMADol 50 2020-0 Yes [id number] 50mg Take 1 [facility] mg tablet 4-15 tablet by ity o f 00:00: mouth [place] 00 every 8 Medical (eight) Branch hours as needed for Pain (scale 7-10). amoxicillin 2020-0 Yes [id number] 500mg Take 1 [facility] 500 mg 4-15 capsule by ity of capsule 00:00: mouth 2 (two) Medical times Branch daily. Lactobacill 2020-0 Yes [id number] 1{tbl} Take 1 [facility] us 4-15 tablet by ity of Acidophilus 00:00: mouth 2 [place] 1 billion 00 (two) Medical cell Tab times Branch daily. traMADol 50 2020-0 Yes [id number] 50mg Take 1 [facility] mg tablet 4-15 tablet by ity o f 00:00: mouth [place] 00 every 8 Medical (eight) Branch hours as needed for Pain (scale 7-10). amoxicillin 2020-0 Yes [id number] 500mg Take 1 [facility] 500 mg 4-15 capsule by ity of capsule 00:00: mouth 2 00 (two) Medical times Branch daily. Lactobacill 2020-0 Yes [id number] 1{tbl} Take 1 [facility] us 4-15 tablet by ity of Acidophilus 00:00: mouth 2 [place] 1 billion 00 (two) Medical cell Tab times Branch daily. traMADol 50 2020-0 Yes [id number] 50mg Take 1 [facility] mg tablet 4-15 tablet by ity o f 00:00: mouth [place] 00 every 8 Medical (eight) Branch hours as needed for Pain (scale 7-10). amoxicillin 2020-0 Yes [id number] 500mg Take 1 [facility] 500 mg 4-15 capsule by ity of capsule 00:00: mouth 2 [place] 00 (two) Medical times Branch daily. Lactobacill 2020-0 Yes [id number] 1{tbl} Take 1 [facility] us 4-15 tablet by ity of Acidophilus 00:00: mouth 2 [place] as 1 billion 00 (two) Medical cell Tab times Branch daily. traMADol 50 2020-0 Yes [id number] 50mg Take 1 [facility] mg tablet 4-15 tablet by ity o f 00:00: mouth [place] 00 every 8 Medical (eight) Branch hours as needed for Pain (scale 7-10). amoxicillin 2020-0 Yes [id number] 500mg Take 1 [facility] 500 mg 4-15 capsule by ity of capsule 00:00: mouth 2 00 (two) Medical times Branch daily. Lactobacill 2020-0 Yes [id number] 1{tbl} Take 1 [facility] us 4-15 tablet by ity of Acidophilus 00:00: mouth 2 [place] 1 billion 00 (two) Medical cell Tab times Branch daily. traMADol 50 2020-0 Yes [id number] 50mg Take 1 [facility] mg tablet 4-15 tablet by ity o f 00:00: mouth [place] 00 every 8 Medical (eight) Branch hours as needed for Pain (scale 7-10). amoxicillin 2020-0 Yes [id number] 500mg Take 1 [facility] 500 mg 4-15 capsule by ity of capsule 00:00: mouth 2 00 (two) Medical times Branch daily. Lactobacill 2020-0 Yes [id number] 1{tbl} Take 1 [facility] us 4-15 tablet by ity of Acidophilus 00:00: mouth 2 [place] 1 billion 00 (two) Medical cell Tab times Branch daily. traMADol 50 2020-0 Yes [id number] 50mg Take 1 [facility] mg tablet 4-15 tablet by ity o f 00:00: mouth [place] 00 every 8 Medical (eight) Branch hours as needed for Pain (scale 7-10). amoxicillin 2020-0 Yes [id number] 500mg Take 1 [facility] 500 mg 4-15 capsule by ity of capsule 00:00: mouth 2 [place] 00 (two) Medical times Branch daily. Lactobacill 2020-0 Yes [id number] 1{tbl} Take 1 [facility] us 4-15 tablet by ity of Acidophilus 00:00: mouth 2 [place] 1 billion 00 (two) Medical cell Tab times Branch daily. traMADol 50 2020-0 Yes [id number] 50mg Take 1 [facility] mg tablet 4-15 tablet by ity o f 00:00: mouth [place] 00 every 8 Medical (eight) Branch hours as needed for Pain (scale 7-10). amoxicillin 2020-0 Yes [id number] 500mg Take 1 [facility] 500 mg 4-15 capsule by ity of capsule 00:00: mouth 2 [place] 00 (two) Medical times Branch daily. Lactobacill 2020-0 Yes [id number] 1{tbl} Take 1 [facility] us 4-15 tablet by ity of Acidophilus 00:00: mouth 2 [place] 1 billion 00 (two) Medical cell Tab times Branch daily. traMADol 50 2020-0 Yes [id number] 50mg Take 1 [facility] mg tablet 4-15 tablet by ity o f 00:00: mouth [place] 00 every 8 Medical (eight) Branch hours as needed for Pain (scale 7-10). amoxicillin 2020-0 Yes [id number] 500mg Take 1 [facility] 500 mg 4-15 capsule by ity of capsule 00:00: mouth 2 [place] 00 (two) Medical times Branch daily. Lactobacill 2020-0 Yes [id number] 1{tbl} Take 1 [facility] us 4-15 tablet by ity of Acidophilus 00:00: mouth 2 [place] 1 billion 00 (two) Medical cell Tab times Branch daily. traMADol 50 2020-0 Yes [id number] 50mg Take 1 [facility] mg tablet 4-15 tablet by ity o f 00:00: mouth [place] 00 every 8 Medical (eight) Branch hours as needed for Pain (scale 7-10). amoxicillin 2020-0 Yes [id number] 500mg Take 1 [facility] 500 mg 4-15 capsule by ity of capsule 00:00: mouth 2 (two) Medical times Branch daily. Lactobacill 2020-0 Yes [id number] 1{tbl} Take 1 [facility] us 4-15 tablet by ity of Acidophilus 00:00: mouth 2 [place] 1 billion 00 (two) Medical cell Tab times Branch daily. traMADol 50 2020-0 Yes [id number] 50mg Take 1 [facility] mg tablet 4-15 tablet by ity o f 00:00: mouth [place] 00 every 8 Medical (eight) Branch hours as needed for Pain (scale 7-10). amoxicillin 2020-0 Yes [id number] 500mg Take 1 [facility] 500 mg 4-15 capsule by ity of capsule 00:00: mouth 2 00 (two) Medical times Branch daily. Lactobacill 2020-0 Yes [id number] 1{tbl} Take 1 [facility] us 4-15 tablet by ity of Acidophilus 00:00: mouth 2 [place] 1 [place] 00 (two) Medical cell Tab times Branch daily. traMADol 50 2020-0 Yes [id number] 50mg Take 1 [facility] mg tablet 4-15 tablet by ity o f 00:00: mouth [place] 00 every 8 Medical (eight) Branch hours as needed for Pain (scale 7-10). amoxicillin 2020-0 Yes [id number] 500mg Take 1 [facility] 500 mg 4-15 capsule by ity of capsule 00:00: mouth 2 00 (two) Medical times Branch daily. Lactobacill 2020-0 Yes [id number] 1{tbl} Take 1 [facility] us 4-15 tablet by ity of Acidophilus 00:00: mouth 2 [place] 1 [place] 00 (two) Medical cell Tab times Branch daily. traMADol 50 2020-0 Yes [id number] 50mg Take 1 [facility] mg tablet 4-15 tablet by ity o f 00:00: mouth [place] 00 every 8 Medical (eight) Branch hours as needed for Pain (scale 7-10). amoxicillin 2020-0 Yes [id number] 500mg Take 1 [facility] 500 mg 4-15 capsule by ity of capsule 00:00: mouth 2 [place] 00 (two) Medical times Branch daily. Lactobacill 2020-0 Yes [id number] 1{tbl} Take 1 [facility] us 4-15 tablet by ity of Acidophilus 00:00: mouth 2 [place] 1 billion 00 (two) Medical cell Tab times Branch daily. traMADol 50 2020-0 Yes [id number] 50mg Take 1 [facility] mg tablet 4-15 tablet by ity o f 00:00: mouth [place] 00 every 8 Medical (eight) Branch hours as needed for Pain (scale 7-10). amoxicillin 2020-0 Yes [id number] 500mg Take 1 [facility] 500 mg 4-15 capsule by ity of capsule 00:00: mouth 2 [place] 00 (two) Medical times Branch daily. Lactobacill 2020-0 Yes [id number] 1{tbl} Take 1 [facility] us 4-15 tablet by ity of Acidophilus 00:00: mouth 2 [place] 1 billion 00 (two) Medical cell Tab times Branch daily. traMADol 50 2020-0 Yes [id number] 50mg Take 1 [facility] mg tablet 4-15 tablet by ity o f 00:00: mouth [place] 00 every 8 Medical (eight) Branch hours as needed for Pain (scale 7-10). amoxicillin 2020-0 Yes [id number] 500mg Take 1 [facility] 500 mg 4-15 capsule by ity of capsule 00:00: mouth 2 [place] 00 (two) Medical times Branch daily. Lactobacill 2020-0 Yes [id number] 1{tbl} Take 1 [facility] us 4-15 tablet by ity of Acidophilus 00:00: mouth 2 [place] 1 billion 00 (two) Medical cell Tab times Branch daily. traMADol 50 2020-0 Yes [id number] 50mg Take 1 [facility] mg tablet 4-15 tablet by ity o f 00:00: mouth [place] 00 every 8 Medical (eight) Branch hours as needed for Pain (scale 7-10). amoxicillin 2020-0 Yes [id number] 500mg Take 1 [facility] 500 mg 4-15 capsule by ity of capsule 00:00: mouth 2 [place] 00 (two) Medical times Branch daily. Lactobacill 2020-0 Yes [id number] 1{tbl} Take 1 [facility] us 4-15 tablet by ity of Acidophilus 00:00: mouth 2 [place] 1 billion 00 (two) Medical cell Tab times Branch daily. traMADol 50 2020-0 Yes [id number] 50mg Take 1 [facility] mg tablet 4-15 tablet by ity o f 00:00: mouth [place] 00 every 8 Medical (eight) Branch hours as needed for Pain (scale 7-10). amoxicillin 2020-0 Yes [id number] 500mg Take 1 [facility] 500 mg 4-15 capsule by ity of capsule 00:00: mouth 2 00 (two) Medical times Branch daily. Lactobacill 2020-0 Yes [id number] 1{tbl} Take 1 [facility] us 4-15 tablet by ity of Acidophilus 00:00: mouth 2 [place] 1 billion 00 (two) Medical cell Tab times Branch daily. traMADol 50 2020-0 Yes [id number] 50mg Take 1 [facility] mg tablet 4-15 tablet by ity o f 00:00: mouth [place] 00 every 8 Medical (eight) Branch hours as needed for Pain (scale 7-10). amoxicillin 2020-0 Yes [id number] 500mg Take 1 [facility] 500 mg 4-15 capsule by ity of capsule 00:00: mouth 2 00 (two) Medical times Branch daily. Lactobacill 2020-0 Yes [id number] 1{tbl} Take 1 [facility] us 4-15 tablet by ity of Acidophilus 00:00: mouth 2 [place] 1 billion 00 (two) Medical cell Tab times Branch daily. traMADol 50 2020-0 Yes [id number] 50mg Take 1 [facility] mg tablet 4-15 tablet by ity o f 00:00: mouth [place] 00 every 8 Medical (eight) Branch hours as needed for Pain (scale 7-10). amoxicillin 2020-0 Yes [id number] 500mg Take 1 [facility] 500 mg 4-15 capsule by ity of capsule 00:00: mouth 2 00 (two) Medical times Branch daily. Lactobacill 2020-0 Yes [id number] 1{tbl} Take 1 [facility] us 4-15 tablet by ity of Acidophilus 00:00: mouth 2 [place] 1 billion 00 (two) Medical cell Tab times Branch daily. traMADol 50 2020-0 Yes [id number] 50mg Take 1 [facility] mg tablet 4-15 tablet by ity o f 00:00: mouth [place] 00 every 8 Medical (eight) Branch hours as needed for Pain (scale 7-10). amoxicillin 2020-0 Yes [id number] 500mg Take 1 [facility] 500 mg 4-15 capsule by ity of capsule 00:00: mouth 2 [place] 00 (two) Medical times Branch daily. Lactobacill 2020-0 Yes [id number] 1{tbl} Take 1 [facility] us 4-15 tablet by ity of Acidophilus 00:00: mouth 2 [place] as 1 billion 00 (two) Medical cell Tab times Branch daily. traMADol 50 2020-0 Yes [id number] 50mg Take 1 [facility] mg tablet 4-15 tablet by ity o f 00:00: mouth [place] 00 every 8 Medical (eight) Branch hours as needed for Pain (scale 7-10). amoxicillin 2020-0 Yes [id number] 500mg Take 1 [facility] 500 mg 4-15 capsule by ity of capsule 00:00: mouth 2 [place] 00 (two) Medical times Branch daily. Lactobacill 2020-0 Yes [id number] 1{tbl} Take 1 [facility] us 4-15 tablet by ity of Acidophilus 00:00: mouth 2 [facility] as 1 billion 00 (two) Medical cell Tab times Branch daily. traMADol 50 2020-0 Yes [id number] 50mg Take 1 [facility] mg tablet 4-15 tablet by ity o f 00:00: mouth [place] 00 every 8 Medical (eight) Branch hours as needed for Pain (scale 7-10). amoxicillin 2020-0 Yes [id number] 500mg Take 1 [facility] 500 mg 4-15 capsule by ity of capsule 00:00: mouth 2 [place] 00 (two) Medical times Branch daily. Lactobacill 2020-0 Yes [id number] 1{tbl} Take 1 [facility] us 4-15 tablet by ity of Acidophilus 00:00: mouth 2 [place] as 1 billion 00 (two) Medical cell Tab times Branch daily. traMADol 50 2020-0 Yes [id number] 50mg Take 1 [facility] mg tablet 4-15 tablet by ity o f 00:00: mouth [place] 00 every 8 Medical (eight) Branch hours as needed for Pain (scale 7-10). amoxicillin 2020-0 Yes [id number] 500mg Take 1 [facility] 500 mg 4-15 capsule by ity of capsule 00:00: mouth 2 [place] 00 (two) Medical times Branch daily. Lactobacill 2020-0 Yes [id number] 1{tbl} Take 1 [facility] us 4-15 tablet by ity of Acidophilus 00:00: mouth 2 [place] as 1 billion 00 (two) Medical cell Tab times Branch daily. traMADol 50 2020-0 Yes [id number] 50mg Take 1 [facility] mg tablet 4-15 tablet by ity o f 00:00: mouth [place] 00 every 8 Medical (eight) Branch hours as needed for Pain (scale 7-10). amoxicillin 2020-0 Yes [id number] 500mg Take 1 [facility] 500 mg 4-15 capsule by ity of capsule 00:00: mouth 2 [place] 00 (two) Medical times Branch daily. Lactobacill 2020-0 Yes [id number] 1{tbl} Take 1 [facility] us 4-15 tablet by ity of Acidophilus 00:00: mouth 2 [place] as 1 billion 00 (two) Medical cell Tab times Branch daily. traMADol 50 2020-0 Yes [id number] 50mg Take 1 [facility] mg tablet 4-15 tablet by ity o f 00:00: mouth [place] 00 every 8 Medical (eight) Branch hours as needed for Pain (scale 7-10). amoxicillin 2020-0 Yes [id number] 500mg Take 1 [facility] 500 mg 4-15 capsule by ity of capsule 00:00: mouth 2 [place] 00 (two) Medical times Branch daily. Lactobacill 2020-0 Yes [id number] 1{tbl} Take 1 [facility] us 4-15 tablet by ity of Acidophilus 00:00: mouth 2 You as 1 billion 00 (two) Medical cell Tab times Branch daily. traMADol 50 2020-0 Yes [id number] 50mg Take 1 [facility] mg tablet 4-15 tablet by ity o f 00:00: mouth [place] 00 every 8 Medical (eight) Branch hours as needed for Pain (scale 7-10). amoxicillin 2020-0 Yes [id number] 500mg Take 1 [facility] 500 mg 4-15 capsule by ity of capsule 00:00: mouth 2 [place] 00 (two) Medical times Branch daily. Lactobacill 2020-0 Yes [id number] 1{tbl} Take 1 [facility] us 4-15 tablet by ity of Acidophilus 00:00: mouth 2 [place] as 1 billion 00 (two) Medical cell Tab times Branch daily. traMADol 50 2020-0 Yes [id number] 50mg Take 1 [facility] mg tablet 4-15 tablet by ity o f 00:00: mouth [place] 00 every 8 Medical (eight) Branch hours as needed for Pain (scale 7-10). traMADol 50 2020-0 Yes [id number] 50mg Take 1 [facility] mg tablet 4-15 tablet by ity o f 00:00: mouth [place] 00 every 8 Medical (eight) Branch hours as needed for Pain (scale 7-10). traMADol 50 2020-0 2020- No [id number] 50mg Take 1 [facility] mg tablet 4-15 04-27 tablet by ity of 00:00: 00:00 mouth [place] 00 :00 every 8 Medical (eight) Branch hours as needed for Pain (scale 7-10). traMADol 50 2020- No [id number] 50mg Take 1 [facility] mg tablet 10-27 tablet by ity of 00:00: 00:00 mouth [place] 00 :00 every 8 Medical (eight) Branch hours as needed for Pain (scale 7-10). amoxicillin 2020- No [id number] 500mg Take 1 [facility] 500 mg -15 -10 capsule by ity of capsule 00:00: 00:00 mouth 2 [place] 00 :00 (two) Medical times Branch daily. amoxicillin 2019-2020- No [id number] 500mg Take 1 [facility] 500 mg 4-15 -10 capsule by ity of capsule 00:00: 00:00 mouth 2 [place] 00 :00 (two) Medical times Branch daily. amoxicillin 2020- No [id number] 500mg Take 1 [facility] 500 mg -15 -10 capsule by ity of capsule 00:00: 00:00 mouth 2 [place] 00 :00 (two) Medical times Branch daily. Lactobacill 2020- No [id number] 1{tbl} Take 1 [facility] us 10-27- tablet by ity of Acidophilus 00:00: 00:00 mouth 2 [place] 1 billion 00 :00 (two) Medical cell Tab times Branch daily. metoclopram 2019-0 Yes 5mg 5 mg, Slow [facility] bj HCl 4-14 IV Push, ity of (REGLAN) 23:14: Q6HPRN, [place] injection 5 57 Starting Medi lizzy mg [facility] 10/27/19 at 1813, Until Discontinu ed, Routine, Headache traMADol 2019-0 Yes 50mg 50 mg, Univers (ULTRAM) 4-14 Oral, ity of tablet 50 23:14: Q4HPRN, [place] mg 45 Starting Medical [facility] 10/27/19 at 181, Until Discontinu ed, Routine, Pain (scale 4-6), Headache acetaminoph 2019-0 Yes 650mg 650 mg, Un michael en 4-14 Oral, ity of (TYLENOL) 18:40: Q4HPRN, [place] tablet 650 56 Starting Medic al mg [facility] 10/27/19 at 1340, Until Discontinu ed, Routine, Pain (scale 1-3) furosemide 2020-0 Yes 40mg 40 mg, Unive rs (LASIX) 4-14 Oral, ity of tablet 40 14:00: QAM+PM, [place] mg 00 First dose Medical on [facility] 10/27/19 at 0900, Until Discontinu ed, Routine metoprolol 2020-0 Yes 50mg 50 mg, Unive rs succinate 4-14 Oral, ity of XL (TOPROL 14:00: DAILY, [place] XL) tablet 00 First dose Med ical 50 mg on [facility] 10/27/19 at 0900, Until Discontinu ed, Routine clopidogreL 2020-0 Yes 75mg 75 mg, Univ ers (PLAVIX) 4-14 Oral, ity of tablet 75 14:00: DAILY, [place] mg 00 First dose Medical on [facility] 10/27/19 at 0900, Until Discontinu ed, Routine enoxaparin 2020-0 Yes 30mg 30 mg, Unive rs (LOVENOX) 4-14 Subcutaneo ity of injection 14:00: us, DAILY, [place] 30 mg 00 First dose Medical on [facility] 10/27/19 at 0900, Until Discontinu ed, Routine docusate 2020-0 Yes 100mg 100 mg, Unive rs (COLACE) 4-14 Oral, BID, ity o f capsule 100 13:00: First dose [place] mg 00 on [facility] 10/27/19 at Branch 0800, Until Discontinu ed, Routine Sliding 2020-0 Yes Subcutaneo Univ ers Scale 4-14 us, TID ity of Insulin - 13:00: MEALS+HS, You as [place]art 00 First dose Medical (NOVOLOG) + on [facility] 10/27/19 at Testing 0800, Until Discontinu ed, Routine aspirin 2020-0 Yes 81mg 81 mg, [facility] chewable 4-14 Oral, QAM ity of tablet 81 09:15: WITH [place] mg 00 BREAKFAST, Medical First dose Branch on [facility] 10/27/19 at 0415, Until Discontinu ed, Routine ondansetron 2020-0 Yes 4mg 4 mg, Slow [facility] (ZOFRAN 4-14 IV Push, ity of (PF)) 08:54: Q6HPRN, [place] injection 4 30 Starting Medi lizzy mg e Branch 10/27/19 at 0354, Until Discontinu ed, Routine, Nausea and Vomiting (N/V) glucagon 2020-0 Yes 1mg 1 mg, Univers (GLUCAGEN 10-26 Intramuscu ity of DIAGNOSTIC 08:53: lar, PRN, [place] KIT) 49 Starting Medical injection 1 Tue Branch mg 10/27/19 at 0353, Until Discontinu ed, KATHY, Blood Glucose < or = 70 mg/dL and patient is unable to swallow or has mental changes. dextrose 50 2020-0 Yes 25mL 25 mL, Univ ers % in water 10-26 Slow IV ity of (D50W) 08:53: Push, PRN, [place] injection 48 Starting Medica l 25 mL [facility] 10/27/19 at 0353, Until Discontinu ed, KATHY, Blood Glucose < or = 70 mg/dL and patient is unable to swallow or has mental status changes. dextrose 50 2020-0 2020- No 50mL 50 mL, Uni vers % in water 10-26 Intravenou it y of (D50W) 04:00: 02:57 s, ONCE, 1 [place] injection 00 :00 dose, Mon Medic al 50 mL 10/26/19 at [place] 2300, STAT ondansetron 2019-0 2019- No 8mg 8 mg, Univ ers (ZOFRAN-ODT 10-26 Oral, ity of ) 03:00: 02:04 ONCE, 1 [place] disintegrat 00 :00 dose, Mon Med ical ing tablet 10/26/19 at [facility] 8 mg 2200, KATHY sodium 2020-0 2020- No [id number] 15g Take 60 mL [facility] polystyrene 10-2516 by mouth ity of sulfonate 00:00: 04:59 daily for [place] 15 gram/60 00 :00 2 doses. Medic al mL Branch suspension sodium 2020-0 2020- No [id number] 15g Take 60 mL [facility] polystyrene 10-25-15 by mouth ity of sulfonate 00:00: 00:00 daily for [place] 15 gram/60 00 :00 2 doses. Medic al mL Branch suspension metoprolol 2020-0 2020- No 50mg Take 50 mg [facility] succinate 10-18 by mouth ity o f 50 mg CSpX 21:11: 00:00 daily. [facility] [place] [facility] 36 :00 Medical Branch spironolact 2020-0 2020- No 25mg Take 25 mg [facility] one 25 mg 10-18-06 by mouth ity o f tablet 21:11: 00:00 daily. [place] 36 :00 Medical Branch metoprolol 2020-0 2020- No 50mg Take 50 mg [facility] succinate 10-18-06 by mouth ity o f 50 mg CSpX 21:11: 00:00 daily. [facility] [place] [facility] 36 :00 Medical Branch spironolact 2020-0 2020- No 25mg Take 25 mg [facility] one 25 mg 10-18- by mouth ity o f tablet 21:11: 00:00 daily. [place] 36 :00 Medical Branch clopidogreL 2020-0 Yes 75mg Take 1 Univ ers 75 mg 4-06 tablet by ity of tablet 00:00: mouth [place] 00 daily. Medical Branch furosemide 2020-0 Yes 40mg Take 1 Unive rs 40 mg 4-06 tablet by ity of tablet 00:00: mouth [place] 00 every Medical morning Branch and evening. atorvastati 2020-0 Yes 80mg Take 1 Univ ers n 80 mg 4-06 tablet by ity of tablet 00:00: mouth at [place] 00 bedtime. Medical Branch metoprolol 2020-0 Yes 50mg Take 50 mg U nivers succinate -06 by mouth ity of 50 mg CSpX 00:00: daily. 00 Medical Branch spironolact 2020-0 Yes 25mg Take 1 Univ ers one 25 mg 4-06 tablet by ity o f tablet 00:00: mouth [place] 00 daily. Medical Branch clopidogreL 2020-0 Yes 75mg Take 1 Univ ers 75 mg 4-06 tablet by ity of tablet 00:00: mouth [place] 00 daily. Medical Branch furosemide 2020-0 Yes 40mg Take 1 Unive rs 40 mg 4-06 tablet by ity of tablet 00:00: mouth [place] 00 every Medical morning Branch and evening. atorvastati 2020-0 Yes 80mg Take 1 Univ ers n 80 mg 4-06 tablet by ity of tablet 00:00: mouth at [place] 00 bedtime. Medical Branch spironolact 2020-0 Yes 25mg Take 1 Univ ers one 25 mg 4-06 tablet by ity o f tablet 00:00: mouth [place] 00 daily. Medical Branch metoprolol 2020-0 Yes 50mg Take 1 Unive rs succinate 4-06 tablet by ity o f XL 50 mg 24 00:00: mouth [place] hr tablet 00 daily. Medical Branch clopidogreL 2020-0 Yes 75mg Take 1 Univ ers 75 mg 4-06 tablet by ity of tablet 00:00: mouth [place] 00 daily. Medical Branch furosemide 2020-0 Yes 40mg Take 1 Unive rs 40 mg 4-06 tablet by ity of tablet 00:00: mouth [place] 00 every Medical morning Branch and evening. atorvastati 2020-0 Yes 80mg Take 1 Univ ers n 80 mg 4-06 tablet by ity of tablet 00:00: mouth at [place] 00 bedtime. Medical Branch spironolact 2020-0 Yes 25mg Take 1 Univ ers one 25 mg 4-06 tablet by ity o f tablet 00:00: mouth [place] 00 daily. Medical Branch metoprolol 2020-0 Yes 50mg Take 1 Unive rs succinate 4-06 tablet by ity o f XL 50 mg 24 00:00: mouth [place] hr tablet 00 daily. Medical Branch clopidogreL 2020-0 Yes 75mg Take 1 Univ ers 75 mg 4-06 tablet by ity of tablet 00:00: mouth [place] 00 daily. Medical Branch furosemide 2020-0 Yes 40mg Take 1 Unive rs 40 mg 4-06 tablet by ity of tablet 00:00: mouth [place] 00 every Medical morning Branch and evening. atorvastati 2020-0 Yes 80mg Take 1 Univ ers n 80 mg 4-06 tablet by ity of tablet 00:00: mouth at [place] 00 bedtime. Medical Branch spironolact 2020-0 Yes 25mg Take 1 Univ ers one 25 mg 4-06 tablet by ity o f tablet 00:00: mouth [place] 00 daily. Medical Branch metoprolol 2020-0 Yes 50mg Take 1 Unive rs succinate 4-06 tablet by ity o f XL 50 mg 24 00:00: mouth [place] hr tablet 00 daily. Medical Branch clopidogreL 2020-0 Yes 75mg Take 1 Univ ers 75 mg 4-06 tablet by ity of tablet 00:00: mouth [place] 00 daily. Medical Branch furosemide 2020-0 Yes 40mg Take 1 Unive rs 40 mg 4-06 tablet by ity of tablet 00:00: mouth [place] 00 every Medical morning Branch and evening. atorvastati 2020-0 Yes 80mg Take 1 Univ ers n 80 mg 4-06 tablet by ity of tablet 00:00: mouth at [place] 00 bedtime. Medical Branch spironolact 2020-0 Yes 25mg Take 1 Univ ers one 25 mg 4-06 tablet by ity o f tablet 00:00: mouth [place] 00 daily. Medical Branch clopidogreL 2020-0 Yes 75mg Take 1 Univ ers 75 mg 4-06 tablet by ity of tablet 00:00: mouth [place] 00 daily. Medical Branch furosemide 2020-0 Yes 40mg Take 1 Unive rs 40 mg 4-06 tablet by ity of tablet 00:00: mouth [place] 00 every Medical morning Branch and evening. atorvastati 2020-0 Yes 80mg Take 1 Univ ers n 80 mg 4-06 tablet by ity of tablet 00:00: mouth at [place] 00 bedtime. Medical Branch metoprolol 2020-0 Yes 50mg Take 1 Unive rs succinate 4-06 tablet by ity o f XL 50 mg 24 00:00: mouth [place] hr tablet 00 daily. Medical Branch clopidogreL 2020-0 Yes 75mg Take 1 Univ ers 75 mg 4-06 tablet by ity of tablet 00:00: mouth [place] 00 daily. Medical Branch furosemide 2020-0 Yes 40mg Take 1 Unive rs 40 mg 4-06 tablet by ity of tablet 00:00: mouth [place] 00 every Medical morning Branch and evening. atorvastati 2020-0 Yes 80mg Take 1 Univ ers n 80 mg 4-06 tablet by ity of tablet 00:00: mouth at [place] 00 bedtime. Medical Branch metoprolol 2020-0 Yes 50mg Take 1 Unive rs succinate 4-06 tablet by ity o f XL 50 mg 24 00:00: mouth [place] hr tablet 00 daily. Medical Branch clopidogreL 2020-0 Yes 75mg Take 1 Univ ers 75 mg 4-06 tablet by ity of tablet 00:00: mouth [place] 00 daily. Medical Branch furosemide 2020-0 Yes 40mg Take 1 Unive rs 40 mg 4-06 tablet by ity of tablet 00:00: mouth [place] 00 every Medical morning Branch and evening. atorvastati 2020-0 Yes 80mg Take 1 Univ ers n 80 mg 4-06 tablet by ity of tablet 00:00: mouth at [place] 00 bedtime. Medical Branch metoprolol 2020-0 Yes 50mg Take 1 Unive rs succinate 4-06 tablet by ity o f XL 50 mg 24 00:00: mouth [place] hr tablet 00 daily. Medical Branch clopidogreL 2020-0 Yes 75mg Take 1 Univ ers 75 mg 4-06 tablet by ity of tablet 00:00: mouth [place] 00 daily. Medical Branch furosemide 2020-0 Yes 40mg Take 1 Unive rs 40 mg 4-06 tablet by ity of tablet 00:00: mouth [place] 00 every Medical morning Branch and evening. atorvastati 2020-0 Yes 80mg Take 1 Univ ers n 80 mg 4-06 tablet by ity of tablet 00:00: mouth at [place] 00 bedtime. Medical Branch metoprolol 2020-0 Yes 50mg Take 1 Unive rs succinate 4-06 tablet by ity o f XL 50 mg 24 00:00: mouth [place] hr tablet 00 daily. Medical Branch clopidogreL 2020-0 Yes 75mg Take 1 Univ ers 75 mg 4-06 tablet by ity of tablet 00:00: mouth [place] 00 daily. [facility] furosemide 2020-0 Yes 40mg Take 1 [facility] 40 mg 4-06 tablet by [facility] of tablet 00:00: mouth [place] 00 every Medical morning Branch and evening. atorvastati 2020-0 Yes 80mg Take 1 [facility] ers n 80 mg 4-06 tablet by [facility] of tablet 00:00: mouth at [place] 00 bedtime. [facility] metoprolol 2020-0 Yes 50mg Take 1 [facility] rs succinate 4-06 tablet by ity o f XL 50 mg 24 00:00: mouth [place] hr tablet 00 daily. [facility] clopidogreL 2020-0 Yes 75mg Take 1 [facility] ers 75 mg 4-06 tablet by [facility] of tablet 00:00: mouth [place] 00 daily. [facility] furosemide 2020-0 Yes 40mg Take 1 [facility] rs 40 mg 4-06 tablet by [facility] of tablet 00:00: mouth [place] 00 every Medical morning Branch and evening. atorvastati 2020-0 Yes 80mg Take 1 [facility] ers n 80 mg 4-06 tablet by [facility] of tablet 00:00: mouth at [place] 00 bedtime. [facility] metoprolol 2020-0 Yes 50mg Take 1 [facility] rs succinate 4-06 tablet by ity o f XL 50 mg 24 00:00: mouth [place] hr tablet 00 daily. [facility] clopidogreL 2020-0 Yes 75mg Take 1 [facility] ers 75 mg 4-06 tablet by [facility] of tablet 00:00: mouth [place] 00 daily. [facility] furosemide 2020-0 Yes 40mg Take 1 [facility] rs 40 mg 4-06 tablet by [facility] of tablet 00:00: mouth [place] 00 every Medical morning Branch and evening. atorvastati 2020-0 Yes 80mg Take 1 [facility] ers n 80 mg 4-06 tablet by [facility] of tablet 00:00: mouth at [place] 00 bedtime. [facility] metoprolol 2020-0 Yes 50mg Take 1 [facility] rs succinate 4-06 tablet by ity o f XL 50 mg 24 00:00: mouth [place] hr tablet 00 daily. [facility] clopidogreL 2020-0 Yes 75mg Take 1 [facility] ers 75 mg 4-06 tablet by [facility] of tablet 00:00: mouth [place] 00 daily. [facility] furosemide 2020-0 Yes 40mg Take 1 [facility] rs 40 mg 4-06 tablet by [facility] of tablet 00:00: mouth [place] 00 every Medical morning Branch and evening. atorvastati 2020-0 Yes 80mg Take 1 [facility] ers n 80 mg 4-06 tablet by [facility] of tablet 00:00: mouth at [place] 00 bedtime. [facility] metoprolol 2020-0 Yes 50mg Take 1 [facility] rs succinate 4-06 tablet by ity o f XL 50 mg 24 00:00: mouth [place] hr tablet 00 daily. [facility] clopidogreL 2020-0 Yes 75mg Take 1 [facility] ers 75 mg 4-06 tablet by [facility] of tablet 00:00: mouth [place] 00 daily. [facility] furosemide 2020-0 Yes 40mg Take 1 [facility] rs 40 mg 4-06 tablet by [facility] of tablet 00:00: mouth [place] 00 every Medical morning Branch and evening. atorvastati 2020-0 Yes 80mg Take 1 [facility] ers n 80 mg 4-06 tablet by [facility] of tablet 00:00: mouth at [place] 00 bedtime. [facility] metoprolol 2020-0 Yes 50mg Take 1 [facility] rs succinate 4-06 tablet by ity o f XL 50 mg 24 00:00: mouth [place] hr tablet 00 daily. [facility] clopidogreL 2020-0 Yes 75mg Take 1 [facility] 75 mg 4-06 tablet by [facility] of tablet 00:00: mouth [place] 00 daily. [facility] furosemide 2020-0 Yes 40mg Take 1 [facility] rs 40 mg 4-06 tablet by [facility] of tablet 00:00: mouth [place] 00 every Medical morning Branch and evening. atorvastati 2020-0 Yes 80mg Take 1 [facility] ers n 80 mg 4-06 tablet by [facility] of tablet 00:00: mouth at [place] 00 bedtime. [facility] metoprolol 2020-0 Yes 50mg Take 1 [facility] rs succinate 4-06 tablet by ity o f XL 50 mg 24 00:00: mouth [place] hr tablet 00 daily. [facility] clopidogreL 2020-0 Yes 75mg Take 1 [facility] 75 mg 4-06 tablet by [facility] of tablet 00:00: mouth [place] 00 daily. [facility] furosemide 2020-0 Yes 40mg Take 1 [facility] 40 mg 4-06 tablet by [facility] of tablet 00:00: mouth [place] 00 every Medical morning Branch and evening. atorvastati 2020-0 Yes 80mg Take 1 [facility] ers n 80 mg 4-06 tablet by [facility]y of tablet 00:00: mouth at [place] 00 bedtime. [facility] metoprolol 2020-0 Yes 50mg Take 1 [facility] rs succinate 4-06 tablet by ity o f XL 50 mg 24 00:00: mouth [place] hr tablet 00 daily. [facility] clopidogreL 2020-0 Yes 75mg Take 1 [facility] 75 mg 4-06 tablet by [facility] of tablet 00:00: mouth [place] 00 daily. [facility] furosemide 2020-0 Yes 40mg Take 1 [facility] 40 mg 4-06 tablet by [facility] of tablet 00:00: mouth [place] 00 every Medical morning Branch and evening. atorvastati 2020-0 Yes 80mg Take 1 [facility] ers n 80 mg 4-06 tablet by [facility]y of tablet 00:00: mouth at [place] 00 bedtime. [facility] metoprolol 2020-0 Yes 50mg Take 1 [facility] rs succinate 4-06 tablet by ity o f XL 50 mg 24 00:00: mouth [place] hr tablet 00 daily. [facility] clopidogreL 2020-0 Yes 75mg Take 1 [facility] ers 75 mg 4-06 tablet by [facility]y of tablet 00:00: mouth [place] 00 daily. [facility] furosemide 2020-0 Yes 40mg Take 1 [facility] 40 mg 4-06 tablet by [facility]y of tablet 00:00: mouth [place] 00 every Medical morning Branch and evening. atorvastati 2020-0 Yes 80mg Take 1 [facility] n 80 mg 4-06 tablet by ity of tablet 00:00: mouth at [place] 00 bedtime. [facility] metoprolol 2020-0 Yes 50mg Take 1 [facility] rs succinate 4-06 tablet by ity o f XL 50 mg 24 00:00: mouth [place] hr tablet 00 daily. [facility] clopidogreL 2020-0 Yes 75mg Take 1 [facility] ers 75 mg 4-06 tablet by [facility]y of tablet 00:00: mouth [place] 00 daily. [facility] furosemide 2020-0 Yes 40mg Take 1 [facility] rs 40 mg 4-06 tablet by [facility]y of tablet 00:00: mouth [place] 00 every Medical morning Branch and evening. atorvastati 2020-0 Yes 80mg Take 1 [facility] n 80 mg 4-06 tablet by ity of tablet 00:00: mouth at [place] 00 bedtime. [facility] metoprolol 2020-0 Yes 50mg Take 1 [facility] rs succinate 4-06 tablet by ity o f XL 50 mg 24 00:00: mouth [place] hr tablet 00 daily. [facility] clopidogreL 2020-0 Yes 75mg Take 1 [facility] 75 mg 4-06 tablet by [facility]y of tablet 00:00: mouth [place] 00 daily. [facility] furosemide 2020-0 Yes 40mg Take 1 [facility] rs 40 mg 4-06 tablet by [facility] of tablet 00:00: mouth [place] 00 every Medical morning Branch and evening. atorvastati 2020-0 Yes 80mg Take 1 [facility] n 80 mg 4-06 tablet by [facility] of tablet 00:00: mouth at [place] 00 bedtime. [facility] metoprolol 2020-0 Yes 50mg Take 1 [facility] rs succinate 4-06 tablet by ity o f XL 50 mg 24 00:00: mouth [place] hr tablet 00 daily. [facility] clopidogreL 2020-0 Yes 75mg Take 1 [facility] 75 mg 4-06 tablet by [facility]y of tablet 00:00: mouth [place] 00 daily. [facility] furosemide 2020-0 Yes 40mg Take 1 [facility] rs 40 mg 4-06 tablet by [facility] of tablet 00:00: mouth [place] 00 every Medical morning Branch and evening. atorvastati 2020-0 Yes 80mg Take 1 [facility] n 80 mg 4-06 tablet by [facility] of tablet 00:00: mouth at [place] 00 bedtime. [facility] metoprolol 2020-0 Yes 50mg Take 1 [facility] rs succinate 4-06 tablet by ity o f XL 50 mg 24 00:00: mouth [place] hr tablet 00 daily. [facility] clopidogreL 2020-0 Yes 75mg Take 1 [facility] 75 mg 4-06 tablet by [facility] of tablet 00:00: mouth [place] 00 daily. [facility] furosemide 2020-0 Yes 40mg Take 1 [facility] rs 40 mg 4-06 tablet by [facility]y of tablet 00:00: mouth [place] 00 every Medical morning Branch and evening. atorvastati 2020-0 Yes 80mg Take 1 [facility] n 80 mg 4-06 tablet by [facility]y of tablet 00:00: mouth at [place] 00 bedtime. [facility] metoprolol 2020-0 Yes 50mg Take 1 [facility] rs succinate 4-06 tablet by ity o f XL 50 mg 24 00:00: mouth [place] hr tablet 00 daily. [facility] clopidogreL 2020-0 Yes 75mg Take 1 [facility] 75 mg 4-06 tablet by [facility] of tablet 00:00: mouth [place] 00 daily. [facility] furosemide 2020-0 Yes 40mg Take 1 [facility] 40 mg 4-06 tablet by ity of tablet 00:00: mouth [place] 00 every Medical morning Branch and evening. atorvastati 2020-0 Yes 80mg Take 1 [facility] n 80 mg 4-06 tablet by [facility] of tablet 00:00: mouth at [place] 00 bedtime. [facility] metoprolol 2020-0 Yes 50mg Take 1 [facility] rs succinate 4-06 tablet by ity o f XL 50 mg 24 00:00: mouth [place] hr tablet 00 daily. [facility] clopidogreL 2020-0 Yes 75mg Take 1 [facility] 75 mg 4-06 tablet by [facility]y of tablet 00:00: mouth [place] 00 daily. [facility] furosemide 2020-0 Yes 40mg Take 1 [facility] 40 mg 4-06 tablet by [facility]y of tablet 00:00: mouth [place] 00 every Medical morning Branch and evening. atorvastati 2020-0 Yes 80mg Take 1 [facility] n 80 mg 4-06 tablet by [facility]y of tablet 00:00: mouth at [place] 00 bedtime. [facility] metoprolol 2020-0 Yes 50mg Take 1 [facility] rs succinate 4-06 tablet by ity o f XL 50 mg 24 00:00: mouth [place] hr tablet 00 daily. [facility] clopidogreL 2020-0 Yes 75mg Take 1 [facility] 75 mg 4-06 tablet by [facility] of tablet 00:00: mouth [place] 00 daily. [facility] furosemide 2020-0 Yes 40mg Take 1 [facility] 40 mg 4-06 tablet by [facility] of tablet 00:00: mouth [place] 00 every Medical morning Branch and evening. atorvastati 2020-0 Yes 80mg Take 1 [facility] n 80 mg 4-06 tablet by ity of tablet 00:00: mouth at [place] 00 bedtime. [facility] metoprolol 2020-0 Yes 50mg Take 1 [facility] rs succinate 4-06 tablet by ity o f XL 50 mg 24 00:00: mouth [place] hr tablet 00 daily. [facility] clopidogreL 2020-0 Yes 75mg Take 1 [facility] 75 mg 4-06 tablet by [facility]y of tablet 00:00: mouth [place] 00 daily. [facility] furosemide 2020-0 Yes 40mg Take 1 [facility] 40 mg 4-06 tablet by ity of tablet 00:00: mouth [place] 00 every Medical morning Branch and evening. atorvastati 2020-0 Yes 80mg Take 1 [facility] n 80 mg 4-06 tablet by ity of tablet 00:00: mouth at [place] 00 bedtime. [facility] metoprolol 2020-0 Yes 50mg Take 1 [facility] rs succinate 4-06 tablet by ity o f XL 50 mg 24 00:00: mouth [place] hr tablet 00 daily. [facility] clopidogreL 2020-0 Yes 75mg Take 1 [facility] ers 75 mg 4-06 tablet by ity of tablet 00:00: mouth [place] 00 daily. [facility] furosemide 2020-0 Yes 40mg Take 1 [facility] rs 40 mg 4-06 tablet by [facility] of tablet 00:00: mouth [place] 00 every Medical morning Branch and evening. atorvastati 2020-0 Yes 80mg Take 1 [facility] n 80 mg 4-06 tablet by ity of tablet 00:00: mouth at [place] 00 bedtime. [facility] metoprolol 2020-0 Yes 50mg Take 1 [facility] rs succinate 4-06 tablet by ity o f XL 50 mg 24 00:00: mouth [place] hr tablet 00 daily. [facility] clopidogreL 2020-0 Yes 75mg Take 1 [facility] 75 mg 4-06 tablet by ity of tablet 00:00: mouth [place] 00 daily. [facility] furosemide 2020-0 Yes 40mg Take 1 [facility] rs 40 mg 4-06 tablet by [facility] of tablet 00:00: mouth [place] 00 every Medical morning Branch and evening. atorvastati 2020-0 Yes 80mg Take 1 [facility] n 80 mg 4-06 tablet by ity of tablet 00:00: mouth at [place] 00 bedtime. [facility] metoprolol 2020-0 Yes 50mg Take 1 [facility] rs succinate 4-06 tablet by ity o f XL 50 mg 24 00:00: mouth [place] hr tablet 00 daily. [facility] clopidogreL 2020-0 Yes 75mg Take 1 [facility] 75 mg 4-06 tablet by [facility] of tablet 00:00: mouth [place] 00 daily. [facility] furosemide 2020-0 Yes 40mg Take 1 [facility] rs 40 mg 4-06 tablet by [facility] of tablet 00:00: mouth [place] 00 every Medical morning Branch and evening. atorvastati 2020-0 Yes 80mg Take 1 [facility] n 80 mg 4-06 tablet by [facility] of tablet 00:00: mouth at [place] 00 bedtime. [facility] metoprolol 2020-0 Yes 50mg Take 1 [facility] rs succinate 4-06 tablet by ity o f XL 50 mg 24 00:00: mouth [place] hr tablet 00 daily. [facility] clopidogreL 2020-0 Yes 75mg Take 1 [facility] 75 mg 4-06 tablet by [facility] of tablet 00:00: mouth [place] 00 daily. [facility] furosemide 2020-0 Yes 40mg Take 1 [facility] rs 40 mg 4-06 tablet by [facility] of tablet 00:00: mouth [place] 00 every Medical morning Branch and evening. atorvastati 2020-0 Yes 80mg Take 1 [facility] n 80 mg 4-06 tablet by [facility] of tablet 00:00: mouth at [place] 00 bedtime. [facility] metoprolol 2020-0 Yes 50mg Take 1 [facility] rs succinate 4-06 tablet by ity o f XL 50 mg 24 00:00: mouth [place] hr tablet 00 daily. [facility] clopidogreL 2020-0 Yes 75mg Take 1 [facility] 75 mg 4-06 tablet by [facility] of tablet 00:00: mouth [place] 00 daily. [facility] furosemide 2020-0 Yes 40mg Take 1 [facility] rs 40 mg 4-06 tablet by ity of tablet 00:00: mouth [place] 00 every Medical morning Branch and evening. atorvastati 2020-0 Yes 80mg Take 1 [facility] n 80 mg 4-06 tablet by [facility] of tablet 00:00: mouth at [place] 00 bedtime. [facility] metoprolol 2020-0 Yes 50mg Take 1 [facility] rs succinate 4-06 tablet by ity o f XL 50 mg 24 00:00: mouth [place] hr tablet 00 daily. [facility] clopidogreL 2020-0 Yes 75mg Take 1 [facility] 75 mg 4-06 tablet by [facility] of tablet 00:00: mouth [place] 00 daily. [facility] furosemide 2020-0 Yes 40mg Take 1 [facility] rs 40 mg 4-06 tablet by [facility] of tablet 00:00: mouth [place] 00 every Medical morning Branch and evening. atorvastati 2020-0 Yes 80mg Take 1 [facility] n 80 mg 4-06 tablet by ity of tablet 00:00: mouth at [place] 00 bedtime. [facility] metoprolol 2020-0 Yes 50mg Take 1 [facility] rs succinate 4-06 tablet by ity o f XL 50 mg 24 00:00: mouth [place] hr tablet 00 daily. [facility] clopidogreL 2020-0 Yes 75mg Take 1 [facility] 75 mg 4-06 tablet by ity of tablet 00:00: mouth [place] 00 daily. [facility] furosemide 2020-0 Yes 40mg Take 1 [facility] rs 40 mg 4-06 tablet by ity of tablet 00:00: mouth [place] 00 every Medical morning Branch and evening. atorvastati 2020-0 Yes 80mg Take 1 [facility] n 80 mg 4-06 tablet by ity of tablet 00:00: mouth at [place] 00 bedtime. [facility] metoprolol 2020-0 Yes 50mg Take 1 [facility] rs succinate 4-06 tablet by ity o f XL 50 mg 24 00:00: mouth [place] hr tablet 00 daily. [facility] clopidogreL 2020-0 Yes 75mg Take 1 [facility] 75 mg 4-06 tablet by [facility] of tablet 00:00: mouth [place] 00 daily. [facility] furosemide 2020-0 Yes 40mg Take 1 [facility] rs 40 mg 4-06 tablet by ity of tablet 00:00: mouth [place] 00 every Medical morning Branch and evening. atorvastati 2020-0 Yes 80mg Take 1 [facility] n 80 mg 4-06 tablet by [facility] of tablet 00:00: mouth at [place] 00 bedtime. [facility] metoprolol 2020-0 Yes 50mg Take 1 [facility] rs succinate 4-06 tablet by ity o f XL 50 mg 24 00:00: mouth [place] hr tablet 00 daily. [facility] clopidogreL 2020-0 Yes 75mg Take 1 [facility] 75 mg 4-06 tablet by ity of tablet 00:00: mouth [place] 00 daily. [facility] furosemide 2020-0 Yes 40mg Take 1 [facility] rs 40 mg 4-06 tablet by [facility]y of tablet 00:00: mouth [place] 00 every Medical morning Branch and evening. atorvastati 2020-0 Yes 80mg Take 1 [facility] n 80 mg 4-06 tablet by [facility] of tablet 00:00: mouth at [place] 00 bedtime. [facility] metoprolol 2020-0 Yes 50mg Take 1 [facility] rs succinate 4-06 tablet by ity o f XL 50 mg 24 00:00: mouth [place] hr tablet 00 daily. [facility] clopidogreL 2020-0 Yes 75mg Take 1 [facility] 75 mg 4-06 tablet by [facility]y of tablet 00:00: mouth [place] 00 daily. [facility] furosemide 2020-0 Yes 40mg Take 1 [facility] rs 40 mg 4-06 tablet by [facility] of tablet 00:00: mouth [place] 00 every Medical morning Branch and evening. atorvastati 2020-0 Yes 80mg Take 1 [facility] n 80 mg 4-06 tablet by [facility] of tablet 00:00: mouth at [place] 00 bedtime. [facility] metoprolol 2020-0 Yes 50mg Take 1 [facility] rs succinate 4-06 tablet by ity o f XL 50 mg 24 00:00: mouth [place] hr tablet 00 daily. [facility] clopidogreL 2020-0 Yes 75mg Take 1 [facility] 75 mg 4-06 tablet by [facility]y of tablet 00:00: mouth [place] 00 daily. [facility] furosemide 2020-0 Yes 40mg Take 1 [facility] rs 40 mg 4-06 tablet by ity of tablet 00:00: mouth [place] 00 every Medical morning Branch and evening. atorvastati 2020-0 Yes 80mg Take 1 [facility] n 80 mg 4-06 tablet by ity of tablet 00:00: mouth at [place] 00 bedtime. [facility] metoprolol 2020-0 Yes 50mg Take 1 [facility] rs succinate 4-06 tablet by ity o f XL 50 mg 24 00:00: mouth [place] hr tablet 00 daily. [facility] clopidogreL 2020-0 Yes 75mg Take 1 [facility] 75 mg 4-06 tablet by ity of tablet 00:00: mouth [place] 00 daily. [facility] furosemide 2020-0 Yes 40mg Take 1 [facility] rs 40 mg 4-06 tablet by ity of tablet 00:00: mouth [place] 00 every Medical morning Branch and evening. atorvastati 2020-0 Yes 80mg Take 1 [facility] n 80 mg 4-06 tablet by ity of tablet 00:00: mouth at [place] 00 bedtime. [facility] metoprolol 2020-0 Yes 50mg Take 1 [facility] rs succinate 4-06 tablet by ity o f XL 50 mg 24 00:00: mouth [place] hr tablet 00 daily. [facility] clopidogreL 2019-2020- No 75mg Take 1 [facility] vers 75 mg 10-18 tablet by ity of tablet 00:00: 00:00 mouth [place] 00 :00 daily. [facility] furosemide 2020- No 40mg Take 1 [facility] ers 40 mg 10-18 tablet by ity of tablet 00:00: 00:00 mouth [place] 00 :00 every Medical morning Branch and evening. atorvastati 2019-2020- No 80mg Take 1 [facility] vers n 80 mg 10-18 tablet by ity of tablet 00:00: 00:00 mouth at [place] 00 :00 bedtime. [facility] metoprolol 2020- No 50mg Take 1 [facility] succinate 10-18 tablet by ity of XL 50 mg 24 00:00: 00:00 [place] hr tablet 00 :00 daily. [facility] clopidogreL 2019-2020- No 75mg Take 1 [facility] vers 75 mg 10-18 tablet by ity of tablet 00:00: 00:00 mouth [place] 00 :00 daily. [facility] furosemide 2019-2020- No 40mg Take 1 [facility] ers 40 mg 10-18 tablet by ity of tablet 00:00: 00:00 mouth [place] 00 :00 every Medical morning Branch and evening. atorvastati 2019-2020- No 80mg Take 1 [facility] vers n 80 mg 10-18 tablet by ity of tablet 00:00: 00:00 mouth at [place] 00 :00 bedtime. [facility] metoprolol 2020- No 50mg Take 1 [facility] succinate 10-18 tablet by ity of XL 50 mg 24 00:00: 00:00 [place] hr tablet 00 :00 daily. [facility] spironolact 2019-2019- No 25mg Take 1 [facility] vers one 25 mg 10-18 tablet by ity of tablet 00:00: 00:00 mouth [place] 00 :00 daily. [facility] metoprolol 2019- No 50mg Take 50 mg [facility] succinate 10-18 by mouth ity o f 50 mg CSpX 00:00: 00:[place]. [place] 00 :00 [facility] metoprolol 2019- No 50mg Take 50 mg [facility] succinate 10-18-06 by mouth ity o f 50 mg CSpX 00:00: 00:[place]. [place] 00 :00 [facility] metoprolol 2020-0 Yes 50mg Take 50 mg U nivers succinate 3-19 by mouth ity of 50 mg CSpX 23:09: daily. [address] spironolact 2020-0 Yes 25mg Take 25 mg [facility] one 25 mg 3-19 by mouth ity of tablet 23:09: daily. [address] insulin NPH 2020-0 Yes 18U inject 18 U nivers human 3-19 Units [facility] of isophane 23:09: [place] (HUMULIN N 16 skin 2 Medical NPH INSULIN (two) Branch [place]) times daily. metoprolol 2020-0 Yes 50mg Take 50 mg U nivers succinate 3-19 by mouth ity of 50 mg CSpX 23:09: daily. [address] spironolact 2020-0 Yes 25mg Take 25 mg [facility] one 25 mg 3-19 by mouth ity of tablet 23:09: daily. [address] insulin NPH 2020-0 Yes 18U inject 18 U nivers human 3-19 Units [facility] of isophane 23:09: [place] (HUMULIN N 16 skin 2 Medical NPH INSULIN (two) Branch [place]) times daily. insulin NPH 2020-0 Yes 18U inject 18 U nivers human 3-19 Units ity of isophane 23:09: [place] (HUMULIN N 16 skin 2 Medical NPH INSULIN (two) Branch [place]) times daily. insulin NPH 2020-0 Yes 18U inject 18 U nivers human 3-19 Units ity of isophane 23:09: [place] (HUMULIN N 16 skin 2 Medical NPH INSULIN (two) Branch [place]) times daily. insulin NPH 2020-0 Yes 18U inject 18 U nivers human 3-19 Units ity of isophane 23:09: [place] (HUMULIN N 16 skin 2 Medical NPH INSULIN (two) Branch [place]) times daily. insulin NPH 2020-0 Yes 18U inject 18 U nivers human 3-19 Units ity of isophane 23:09: [place] (HUMULIN N 16 skin 2 Medical NPH INSULIN (two) Branch [place]) times daily. insulin NPH 2020-0 Yes 18U inject 18 U nivers human 3-19 Units ity of isophane 23:09: [place] (HUMULIN N 16 skin 2 Medical NPH INSULIN (two) Branch [place]) times daily. mupirocin 2020-0 Yes Univers (BACTROBAN 3-19 ity of OINT) 2 % 19:00: [place] skin 00 Medical ointment Branch sulfamethox 2020-0 2020- No 1{tbl} Take 1 U nivers azole-trime 3-19 03-19 tablet by it y of thoprim 16:32: 00:00 mouth 2 [place] (BACTRIM 29 :00 (two) Medical DS) 800-160 times Branch mg per daily. tablet amoxicillin 2020-0 Yes 1{tbl} 1 tablet, Univers -clavulanat 3-19 Oral, ity of e 15:30: Q12H, [place] (AUGMENTIN) First dose Me dical 875-125 mg on [place] per tablet 10/01/19 at 1 tablet 1030, Until Discontinu ed, Routine
Reason for Anti-Infec tive: Empiric Therapy for Suspected Infection< br>Empiric Therapy Site: Respirator y
Durat ion of therapy: 72 hours zolpidem 2020-0 Yes 5mg 5 mg, Univers (AMBIEN) 3-19 Oral, ity of tablet 5 mg 02:19: QHSPRN, You as 25 Starting Medical [facility] 09/30/19 at 2119, Until Discontinu ed, Routine, Insomnia aspirin 2020-0 Yes 81mg 81 mg, Univers chewable 3-19 Oral, QHS, ity o f tablet 81 02:00: First dose [place] mg 00 on [facility] Medical 09/30/19 at Branch 2100, Until Discontinu ed, Routine silver 2020-0 Yes Topical, Univers sulfADIAZIN 3-19 BID, First it y of E 01:00: dose on [place] (SILVADENE) Sat Medical 1 % cream 09/30/19 at Bran ch 2000, Until Discontinu ed, Routine ferrous 2020-0 Yes [id number] 325mg Take 1 Un michael sulfate 3-19 tablet by ity of (FERROUSUL) 00:00: mouth 3 You as 325 mg (65 00 (three) Medica l mg iron) times Branch tablet daily with meals. ferrous 2020-0 Yes [id number] 325mg Take 1 Un michael sulfate 3-19 tablet by ity of (FERROUSUL) 00:00: mouth 3 [place] as 325 mg (65 00 (three) Medica l mg iron) times Branch tablet daily with meals. ferrous 2020-0 Yes [id number] 325mg Take 1 Un michael sulfate 3-19 tablet by ity of (FERROUSUL) 00:00: mouth 3 [place] as 325 mg (65 00 (three) Medica l mg iron) times Branch tablet daily with meals. ferrous 2020-0 Yes [id number] 325mg Take 1 Un michael sulfate 3-19 tablet by ity of (FERROUSUL) 00:00: mouth 3 You as 325 mg (65 00 (three) Medica l mg iron) times Branch tablet daily with meals. ferrous 2020-0 Yes [id number] 325mg Take 1 Un michael sulfate 3-19 tablet by ity of (FERROUSUL) 00:00: mouth 3 [place] as 325 mg (65 00 (three) Medica l mg iron) times Branch tablet daily with meals. ferrous 2020-0 Yes [id number] 325mg Take 1 Un michael sulfate 3-19 tablet by ity of (FERROUSUL) 00:00: mouth 3 [place] as 325 mg (65 00 (three) Medica l mg iron) times Branch tablet daily with meals. ferrous 2020-0 Yes [id number] 325mg Take 1 Un michael sulfate 3-19 tablet by ity of (FERROUSUL) 00:00: mouth 3 You as 325 mg (65 00 (three) Medica l mg iron) times Branch tablet daily with meals. ferrous 2020-0 Yes [id number] 325mg Take 1 Un michael sulfate 3-19 tablet by ity of (FERROUSUL) 00:00: mouth 3 [place] as 325 mg (65 00 (three) Medica l mg iron) times Branch tablet daily with meals. ferrous 2020-0 Yes [id number] 325mg Take 1 Un michael sulfate 3-19 tablet by ity of (FERROUSUL) 00:00: mouth 3 [place] as 325 mg (65 00 (three) Medica l mg iron) times Branch tablet daily with meals. ferrous 2020-0 Yes [id number] 325mg Take 1 Un michael sulfate 3-19 tablet by ity of (FERROUSUL) 00:00: mouth 3 You as 325 mg (65 00 (three) Medica l mg iron) times Branch tablet daily with meals. ferrous 2020-0 Yes [id number] 325mg Take 1 Un michael sulfate 3-19 tablet by ity of (FERROUSUL) 00:00: mouth 3 You as 325 mg (65 00 (three) Medica l mg iron) times Branch tablet daily with meals. ferrous 2020-0 Yes [id number] 325mg Take 1 Un michael sulfate 3-19 tablet by ity of (FERROUSUL) 00:00: mouth 3 You as 325 mg (65 00 (three) Medica l mg iron) times Branch tablet daily with meals. ferrous 2020-0 Yes [id number] 325mg Take 1 Un michael sulfate 3-19 tablet by ity of (FERROUSUL) 00:00: mouth 3 You as 325 mg (65 00 (three) Medica l mg iron) times Branch tablet daily with meals. ferrous 2020-0 Yes [id number] 325mg Take 1 Un michael sulfate 3-19 tablet by ity of (FERROUSUL) 00:00: mouth 3 [place] as 325 mg (65 00 (three) Medica l mg iron) times Branch tablet daily with meals. ferrous 2020-0 Yes [id number] 325mg Take 1 Un michael sulfate 3-19 tablet by ity of (FERROUSUL) 00:00: mouth 3 [place] as 325 mg (65 00 (three) Medica l mg iron) times Branch tablet daily with meals. ferrous 2020-0 Yes [id number] 325mg Take 1 Un michael sulfate 3-19 tablet by ity of (FERROUSUL) 00:00: mouth 3 You as 325 mg (65 00 (three) Medica l mg iron) times Branch tablet daily with meals. ferrous 2020-0 Yes [id number] 325mg Take 1 Un michael sulfate 3-19 tablet by ity of (FERROUSUL) 00:00: mouth 3 You as 325 mg (65 00 (three) Medica l mg iron) times Branch tablet daily with meals. ferrous 2020-0 Yes [id number] 325mg Take 1 Un michael sulfate 3-19 tablet by ity of (FERROUSUL) 00:00: mouth 3 You as 325 mg (65 00 (three) Medica l mg iron) times Branch tablet daily with meals. ferrous 2020-0 Yes [id number] 325mg Take 1 Un michael sulfate 3-19 tablet by ity of (FERROUSUL) 00:00: mouth 3 [place] as 325 mg (65 00 (three) Medica l mg iron) times Branch tablet daily with meals. ferrous 2020-0 Yes [id number] 325mg Take 1 Un michael sulfate 3-19 tablet by ity of (FERROUSUL) 00:00: mouth 3 You as 325 mg (65 00 (three) Medica l mg iron) times Branch tablet daily with meals. ferrous 2020-0 Yes [id number] 325mg Take 1 Un [facility] sulfate 3-19 tablet by ity of (FERROUSUL) 00:00: mouth 3 [place] 325 mg (65 00 (three) Medica l mg iron) times Branch tablet daily with meals. ferrous 2020-0 Yes [id number] 325mg Take 1 Un [facility] sulfate 3-19 tablet by ity of (FERROUSUL) 00:00: mouth 3 [place] 325 mg (65 00 (three) Medica l mg iron) times Branch tablet daily with meals. ferrous 2020-0 Yes [id number] 325mg Take 1 Un [place] sulfate 3-19 tablet by ity of (FERROUSUL) 00:00: mouth 3 [place] 325 mg (65 00 (three) Medica l mg iron) times Branch tablet daily with meals. ferrous 2020-0 Yes [id number] 325mg Take 1 Un [place] sulfate 3-19 tablet by ity of (FERROUSUL) 00:00: mouth 3 [place] 325 mg (65 00 (three) Medica l mg iron) times Branch tablet daily with meals. ferrous 2020-0 Yes [id number] 325mg Take 1 Un [place] sulfate 3-19 tablet by ity of (FERROUSUL) 00:00: mouth 3 [place] 325 mg (65 00 (three) Medica l mg iron) times Branch tablet daily with meals. ferrous 2020-0 Yes [id number] 325mg Take 1 Un [place] sulfate 3-19 tablet by ity of (FERROUSUL) 00:00: mouth 3 [place] 325 mg (65 00 (three) Medica l mg iron) times Branch tablet daily with meals. ferrous 2020-0 Yes [id number] 325mg Take 1 Un [place] sulfate 3-19 tablet by ity of (FERROUSUL) 00:00: mouth 3 [place] 325 mg (65 00 (three) Medica l mg iron) times Branch tablet daily with meals. ferrous 2020-0 Yes [id number] 325mg Take 1 Un [place] sulfate 3-19 tablet by ity of (FERROUSUL) 00:00: mouth 3 [place] 325 mg (65 00 (three) Medica l mg iron) times Branch tablet daily with meals. ferrous 2020-0 Yes [id number] 325mg Take 1 Un [place] sulfate 3-19 tablet by ity of (FERROUSUL) 00:00: mouth 3 [place] 325 mg (65 00 (three) Medica l mg iron) times Branch tablet daily with meals. ferrous 2020-0 Yes [id number] 325mg Take 1 Un [place] sulfate 3-19 tablet by ity of (FERROUSUL) 00:00: mouth 3 [place] 325 mg (65 00 (three) Medica l mg iron) times Branch tablet daily with meals. ferrous 2020-0 Yes [id number] 325mg Take 1 Un [place] sulfate 3-19 tablet by ity of (FERROUSUL) 00:00: mouth 3 [place] 325 mg (65 00 (three) Medica l mg iron) times Branch tablet daily with meals. ferrous 2020-0 Yes [id number] 325mg Take 1 [facility] [place] sulfate 3-19 tablet by ity of (FERROUSUL) 00:00: mouth 3 [place] 325 mg (65 00 (three) Medica l mg iron) times Branch tablet daily with meals. ferrous 2020-0 Yes [id number] 325mg Take 1 Un [place] sulfate 3-19 tablet by ity of (FERROUSUL) 00:00: mouth 3 [place] 325 mg (65 00 (three) Medica l mg iron) times Branch tablet daily with meals. ferrous 2020-0 Yes [id number] 325mg Take 1 [facility] [place] sulfate 3-19 tablet by ity of (FERROUSUL) 00:00: mouth 3 [place] 325 mg (65 00 (three) Medica l mg iron) times Branch tablet daily with meals. ferrous 2020-0 Yes [id number] 325mg Take 1 [facility] [place] sulfate 3-19 tablet by ity of (FERROUSUL) 00:00: mouth 3 [place] 325 mg (65 00 (three) Medica l mg iron) times Branch tablet daily with meals. ferrous 2020-0 Yes [id number] 325mg Take 1 Un [place] sulfate 3-19 tablet by ity of (FERROUSUL) 00:00: mouth 3 [place] 325 mg (65 00 (three) Medica l mg iron) times Branch tablet daily with meals. ferrous 2020-0 Yes [id number] 325mg Take 1 Un [place] sulfate 3-19 tablet by ity of (FERROUSUL) 00:00: mouth 3 [place] 325 mg (65 00 (three) Medica l mg iron) times Branch tablet daily with meals. ferrous 2020-0 Yes [id number] 325mg Take 1 Un [place] sulfate 3-19 tablet by ity of (FERROUSUL) 00:00: mouth 3 [place] 325 mg (65 00 (three) Medica l mg iron) times Branch tablet daily with meals. ferrous 2020-0 Yes [id number] 325mg Take 1 Un [place] sulfate 3-19 tablet by ity of (FERROUSUL) 00:00: mouth 3 [place] 325 mg (65 00 (three) Medica l mg iron) times Branch tablet daily with meals. ferrous 2020-0 Yes [id number] 325mg Take 1 Un michael sulfate 3-19 tablet by ity of (FERROUSUL) 00:00: mouth 3 [place] 325 mg (65 00 (three) Medica l mg iron) times Branch tablet daily with meals. ferrous 0 2020- No [id number] 325mg Take 1 U nivers sulfate 3-19 04-27 tablet by ity of (FERROUSUL) 00:00: 00:00 mouth 3 [place] 325 mg (65 00 :00 (three) Medica l mg iron) times Branch tablet daily with meals. ferrous 0 2020- No [id number] 325mg Take 1 U nivers sulfate 3-19 04-27 tablet by ity of (FERROUSUL) 00:00: 00:00 mouth 3 [place] 325 mg (65 00 :00 (three) Medica l mg iron) times Branch tablet daily with meals. acetylcyste 2020-0 Yes 4mL 800 mg (4 U nivers ine 3-18 mL), ity of (MUCOMYST) 21:15: Inhalation [place] 200 mg/mL 00 , Q6H, Medical (20 %) First dose Branch solution on Sat 800 mg 09/30/19 at 1615, Until Discontinu ed, Routine ipratropium 2020-0 Yes 3mL 3 mL, Unive rs -albuterol -18 Inhalation ity of (DUONEB) 21:01: , Q6HPRN, [place] 0.5 mg-3 33 Starting Medical mg(2.5 mg Sat base)/3 mL 09/30/19 at nebulizer 1601, solution 3 Until mL Discontinu ed, Routine, Wheezing, Shortness of Breath, Bronchospa sm furosemide 2020-0 Yes 40mg 40 mg, Unive rs (LASIX) 3-18 Oral, BID, ity of tablet 40 16:00: First dose [place] mg 00 on Sat Medical 09/30/19 at Branch 1100, Until Discontinu ed, Routine famotidine 2019-0 Yes 20mg 20 mg, Unive rs (PEPCID AC) 18 Oral, ity of tablet 20 14:00: DAILY, [place] mg 00 First dose Medical on Sat Branch 09/30/19 at 0900, Until Discontinu ed, Routine metoprolol 2020-0 Yes 50mg 50 mg, Unive rs succinate 09-29 Oral, ity of XL (TOPROL 14:00: DAILY, [place] XL) tablet 00 First dose Med ical 50 mg on Sat Branch 09/30/19 at 0900, Until Discontinu ed insulin NPH 2019-0 Yes 15U 15 Units, U nivers (HUMULIN N) 09-29 Subcutaneo it y of injection 14:00: us, [place] 15 Units 00 QAM+PM, Medical First dose Branch on Sat09/30/19 at 0900, Until Discontinu ed clopidogreL 2020-0 Yes 75mg 75 mg, Univ ers (PLAVIX) 18 Oral, ity of tablet 75 14:00: DAILY, [place] mg 00 First dose Medical on Sat Branch 09/30/19 at 0900, Until Discontinu ed, Routine sodium 2020-0 2020- No 125mg 125 mg, IV Uni vers ferric 09-29 03-23 Piggyback, ity of gluconate 14:00: 13:59 DAILY, 5 You as (FERRLECIT) 00 :00 doses, Medica l 125 mg in First dose Bran ch NaCl 0.9% on Sat (NS) 100 mL 09/30/19 at IV 0900, Last piggyback dose on 10/04/19 at 0900, 100 mL
Facu lty member approving Restricted medication : ROSIBEL DE LA PAZ Sliding 2020-0 Yes Subcutaneo [facility] [place] [facility] ers Scale 3-18 us, TID ity of Insulin - 13:00: MEALS+HS, You as Lispro 00 First dose Medical (HumaLOG) + on Sat Fsbg 09/30/19 at Testing 0800, Until Discontinu ed, Routine docusate 2020-0 Yes 100mg 100 mg, Unive rs (COLACE) 3-18 Oral, BID, ity o f capsule 100 13:00: First dose [place] mg 00 on Sat09/30/19 at Branch 0800, Until Discontinu ed, Routine ferrous 2020-0 Yes 325mg 325 mg, Univer s sulfate 18 Oral, TID ity of tablet 325 13:00: MEALS, [place] mg 00 First dose Medical on Sat09/30/19 at 0800, Until Discontinu ed, Routine NaCl 0.9% 2019-0 2020- No 1000mL at 50 [facility] [place] [facility] ers (NS) IV 09-29 03-18 mL/hr, IV ity of infusion 03:00: 15:47 Infusion, [place] 1,000 mL 00 :11 CONTINUOUS Medic al , Starting Branch Sat09/29/19 at 2200, Until Sat09/30/19 at 1047, Routine melatonin 2020-0 Yes 3mg 3 mg, Univers (MELATIN) 18 Oral, QHS, ity of tablet 3 mg 02:30: First dose [place] 00 on Sat09/29/19 at Branch 2130, Until Discontinu ed, Routine atorvastati 2020-0 Yes 40mg 40 mg, Univ ers n (LIPITOR) 3-18 Oral, QHS, it y of tablet 40 02:00: First dose [place] mg 00 on Sat [facility] 09/29/19 at Branch 2100, Until Discontinu ed, Routine metoprolol 2020-0 Yes 50mg Take 50 mg U nivers succinate -18 by mouth ity of 50 mg CSpX 01:49: daily. [address] spironolact 2020-0 Yes 25mg Take 25 mg Univers one 25 mg -18 by mouth ity of tablet 01:49: daily. [address] insulin NPH 2020-0 Yes 18U inject 18 U nivers human 3-18 Units ity of isophane 01:49: [place] (HUMULIN N 18 skin 2 Medical NPH INSULIN (two) Branch KWIKPEN SC) times daily. sulfamethox 2020-0 Yes 1{tbl} Take 1 Un michael azole-trime 3-18 tablet by ity of thoprim 01:49: mouth 2 [place] (BACTRIM 18 (two) Medical DS) 800-160 times Branch mg per daily. tablet metoprolol 2020-0 Yes 50mg Take 50 mg U nivers succinate 3-18 by mouth ity of 50 mg CSpX 01:49: daily. [place] [address] Medical Branch spironolact 2020-0 Yes 25mg Take 25 mg Univers one 25 mg 3-18 by mouth ity of tablet 01:49: daily. [place] [address] Medical Branch insulin NPH 2020-0 Yes 18U inject 18 U nivers human 3-18 Units ity of isophane 01:49: [place] the [place] (HUMULIN N 18 skin 2 Medical NPH INSULIN (two) Branch KWIKPEN SC) times daily. ondansetron 2020-0 Yes 4mg 4 mg, Slow Univers (ZOFRAN 3-18 IV Push, ity of (PF)) 01:47: Q6HPRN, [place] injection 4 45 Starting Medi lizzy mg Tue Branch 09/29/19 at 2046, Until Discontinu ed, Routine, Nausea and Vomiting (N/V) HYDROcodone 2020-0 2020- No 1{tbl} 1 tablet, Univers -acetaminop 18 -20 Oral, ity of hen (NORCO 01:47: 01:46 Q6HPRN, [facility] as 5) 5-325 mg 37 :37 Starting Medi lizzy tablet 1 Tue Branch tablet 09/29/19 at 2046, Until [place] 10/01/19 at 2045, Routine, Pain (scale 4-6) acetaminoph 2020-0 Yes 650mg 650 mg, Un michael en -18 Oral, ity of (TYLENOL) 01:47: Q6HPRN, [place] tablet 650 36 Starting Medic al mg Tue Branch 09/29/19 at 2046, Until Discontinu ed, Routine, Pain (scale 1-3) nitroglycer 2020-0 Yes .4mg 0.4 mg, Uni vers in 3-18 Sublingual ity of (NITROSTAT) 01:46: , Q5MIN [place] sublingual 06 PRN, Medical tablet 0.4 Starting Branc h mg [facility] 09/29/19 at 2046, Until Discontinu ed, Routine, Chest pain furosemide 2020-0 2020- No 40mg 40 mg, IV U nivers (LASIX) -18 -17 Push, ity of injection 00:00: 23:22 ONCE, 1 [place] 40 mg 00 :00 dose, Tu Medical 09/29/19 at Branch 1900, KATHY Sulfamethox Sulfamethox 2020-0 Yes M.A. TAKE 1 Univers azole-Trime azole-Trime 3-17 TABLET ity of thoprim thoprim 00:00: TWICE [place] 800-160 MG 800-160 MG 00 DAILY. for Physici Oral Tablet Oral Tablet 7 days ans metoprolol 2020-0 Yes 50mg Take 50 mg U nivers succinate 3-16 by mouth ity of 50 mg CSpX 18:06: daily. [address] spironolact 2020-0 Yes 25mg Take 25 mg Univers one 25 mg 3-16 by mouth ity of tablet 18:06: daily. [address] insulin NPH 2020-0 Yes 18U inject 18 U nivers human 3-16 Units ity of isophane 18:06: under the [place] (HUMULIN N 02 skin 2 Medical NPH INSULIN (two) Branch KWIKPEN SC) times daily. metoprolol 2020-0 Yes 50mg Take 50 mg U nivers succinate 3-16 by mouth ity of 50 mg CSpX 18:06: daily. [address] spironolact 2020-0 Yes 25mg Take 25 mg Univers one 25 mg 3-16 by mouth ity of tablet 18:06: daily. [address] insulin NPH 2020-0 Yes 18U inject 18 U nivers human 3-16 Units ity of isophane 18:06: [place] the [place] (HUMULIN N 02 skin 2 Medical NPH INSULIN (two) Branch KWIKPEN SC) times daily. sulfamethox 2020-0 2020- No [id number] 1{tbl} Take 1 [facility] azole-trime 309 -17 tablet by it y of thoprim 00:00: 04:59 mouth 2 [place] (BACTRIM 00 :00 (two) Medical DS) 800-160 times Branch mg per daily for tablet 7 days. sulfamethox 2020-0 2020- No [id number] 1{tbl} Take 1 Univers azole-trime 09-20 tablet by it y of thoprim 00:00: 04:59 mouth 2 [place] (BACTRIM 00 :00 (two) Medical DS) 800-160 times Branch mg per daily for tablet 7 days. sulfamethox 2020-0 2020- No [id number] 1{tbl} Take 1 [facility] azole-trime 09-20 tablet by it y of thoprim 00:00: 04:59 mouth 2 [place] (BACTRIM 00 :00 (two) Medical DS) 800-160 times Branch mg per daily for tablet 7 days. ondansetron 2020-0 2020- No 4mg 4 mg, Univ ers (ZOFRAN-ODT 09-18 Oral, ity of ) 03:00: 01:55 ONCE, 1 [place] disintegrat 00 :00 dose, Fri Med ical ing tablet 09/18/19 at Bran ch 4 mg 2099, Routine acetaminoph 2020-0 2020- No 650mg 650 mg, U nivers en 09-18 Oral, ity of (TYLENOL) 03:00: 01:55 ONCE, 1 [place] tablet 650 00 :00 dose, Fri Medi lizzy mg 09/18/19 at Branch 2100, KATHY diph,pertus 2020-0 2020- No .5mL 0.5 mL, Un michael (acel),teta 09-18 Intramuscu i ty of nus 02:15: 02:15 lar, ONCE, [place] (ADACEL) 00 :00 1 dose, Medical injection 09/18/19 Bran ch 0.5 mL at 2014, Routine ondansetron 2020-0 Yes [id number] 4mg Take 1 [facility] 4 mg 3-06 tablet by ity of disintegrat 00:00: mouth [place] ing tablet 00 every 8 Medica l (eight) Branch hours as needed for Nausea and Vomiting (N/V) for up to 15 doses. ondansetron 2020-0 Yes [id number] 4mg Take 1 [facility] 4 mg 3-06 tablet by ity of disintegrat 00:00: mouth [place] ing tablet 00 every 8 Medica l (eight) Branch hours as needed for Nausea and Vomiting (N/V) for up to 15 doses. ondansetron 2020-0 Yes [id number] 4mg Take 1 [facility] 4 mg 3-06 tablet by ity of disintegrat 00:00: mouth [place] ing tablet 00 every 8 Medica l (eight) Branch hours as needed for Nausea and Vomiting (N/V) for up to 15 doses. ondansetron 2020-0 Yes [id number] 4mg Take 1 [facility] 4 mg 3-06 tablet by ity of disintegrat 00:00: mouth [place] ing tablet 00 every 8 Medica l (eight) Branch hours as needed for Nausea and Vomiting (N/V) for up to 15 doses. ondansetron 2020-0 Yes [id number] 4mg Take 1 [facility] 4 mg 3-06 tablet by ity of disintegrat 00:00: mouth [place] ing tablet 00 every 8 Medica l (eight) Branch hours as needed for Nausea and Vomiting (N/V) for up to 15 doses. ondansetron 2020-0 Yes [id number] 4mg Take 1 [facility] 4 mg 3-06 tablet by ity of disintegrat 00:00: mouth [place] ing tablet 00 every 8 Medica l (eight) Branch hours as needed for Nausea and Vomiting (N/V) for up to 15 doses. ondansetron 2020-0 Yes [id number] 4mg Take 1 Univers 4 mg 3-06 tablet by ity of disintegrat 00:00: mouth [place] ing tablet 00 every 8 Medica l (eight) Branch hours as needed for Nausea and Vomiting (N/V) for up to 15 doses. ondansetron 2020-0 Yes [id number] 4mg Take 1 Univers 4 mg 3-06 tablet by ity of disintegrat 00:00: mouth [place] ing tablet 00 every 8 Medica l (eight) Branch hours as needed for Nausea and Vomiting (N/V) for up to 15 doses. ondansetron 2020-0 Yes [id number] 4mg Take 1 Univers 4 mg 3-06 tablet by ity of disintegrat 00:00: mouth [place] ing tablet 00 every 8 Medica l (eight) Branch hours as needed for Nausea and Vomiting (N/V) for up to 15 doses. ondansetron 2020-0 Yes [id number] 4mg Take 1 Univers 4 mg 3-06 tablet by ity of disintegrat 00:00: mouth [place] ing tablet 00 every 8 Medica l (eight) Branch hours as needed for Nausea and Vomiting (N/V) for up to 15 doses. ondansetron 2020-0 Yes [id number] 4mg Take 1 Univers 4 mg 3-06 tablet by ity of disintegrat 00:00: mouth [place] ing tablet 00 every 8 Medica l (eight) Branch hours as needed for Nausea and Vomiting (N/V) for up to 15 doses. ondansetron 2020-0 Yes [id number] 4mg Take 1 Univers 4 mg 3-06 tablet by ity of disintegrat 00:00: mouth [place] ing tablet 00 every 8 Medica l (eight) Branch hours as needed for Nausea and Vomiting (N/V) for up to 15 doses. ondansetron 2020-0 Yes [id number] 4mg Take 1 Univers 4 mg 3-06 tablet by ity of disintegrat 00:00: mouth [place] ing tablet 00 every 8 Medica l (eight) Branch hours as needed for Nausea and Vomiting (N/V) for up to 15 doses. ondansetron 2020-0 Yes [id number] 4mg Take 1 Univers 4 mg 3-06 tablet by ity of disintegrat 00:00: mouth [place] ing tablet 00 every 8 Medica l (eight) Branch hours as needed for Nausea and Vomiting (N/V) for up to 15 doses. ondansetron 2020-0 Yes [id number] 4mg Take 1 Univers 4 mg 3-06 tablet by ity of disintegrat 00:00: mouth [place] ing tablet 00 every 8 Medica l (eight) Branch hours as needed for Nausea and Vomiting (N/V) for up to 15 doses. ondansetron 2020-0 Yes [id number] 4mg Take 1 Univers 4 mg 3-06 tablet by ity of disintegrat 00:00: mouth [place] ing tablet 00 every 8 Medica l (eight) Branch hours as needed for Nausea and Vomiting (N/V) for up to 15 doses. ondansetron 2020-0 Yes [id number] 4mg Take 1 Univers 4 mg 3-06 tablet by ity of disintegrat 00:00: mouth [place] ing tablet 00 every 8 Medica l (eight) Branch hours as needed for Nausea and Vomiting (N/V) for up to 15 doses. ondansetron 2020-0 Yes [id number] 4mg Take 1 Univers 4 mg 3-06 tablet by ity of disintegrat 00:00: mouth [place] ing tablet 00 every 8 Medica l (eight) Branch hours as needed for Nausea and Vomiting (N/V) for up to 15 doses. ondansetron 2020-0 Yes [id number] 4mg Take 1 Univers 4 mg 3-06 tablet by ity of disintegrat 00:00: mouth [place] ing tablet 00 every 8 Medica l (eight) Branch hours as needed for Nausea and Vomiting (N/V) for up to 15 doses. ondansetron 2020-0 Yes [id number] 4mg Take 1 Univers 4 mg 3-06 tablet by ity of disintegrat 00:00: mouth [place] ing tablet 00 every 8 Medica l (eight) Branch hours as needed for Nausea and Vomiting (N/V) for up to 15 doses. ondansetron 2020-0 Yes [id number] 4mg Take 1 Univers 4 mg 3-06 tablet by ity of disintegrat 00:00: mouth [place] ing tablet 00 every 8 Medica l (eight) Branch hours as needed for Nausea and Vomiting (N/V) for up to 15 doses. ondansetron 2020-0 Yes [id number] 4mg Take 1 Univers 4 mg 3-06 tablet by ity of disintegrat 00:00: mouth [place] ing tablet 00 every 8 Medica l (eight) Branch hours as needed for Nausea and Vomiting (N/V) for up to 15 doses. ondansetron 2020-0 Yes [id number] 4mg Take 1 Univers 4 mg 3-06 tablet by ity of disintegrat 00:00: mouth [place] ing tablet 00 every 8 Medica l (eight) Branch hours as needed for Nausea and Vomiting (N/V) for up to 15 doses. ondansetron 2020-0 Yes [id number] 4mg Take 1 Univers 4 mg 3-06 tablet by ity of disintegrat 00:00: mouth [place] ing tablet 00 every 8 Medica l (eight) Branch hours as needed for Nausea and Vomiting (N/V) for up to 15 doses. ondansetron 2020-0 Yes [id number] 4mg Take 1 Univers 4 mg 3-06 tablet by ity of disintegrat 00:00: mouth [place] ing tablet 00 every 8 Medica l (eight) Branch hours as needed for Nausea and Vomiting (N/V) for up to 15 doses. ondansetron 2020-0 Yes [id number] 4mg Take 1 Univers 4 mg 3-06 tablet by ity of disintegrat 00:00: mouth [place] ing tablet 00 every 8 Medica l (eight) Branch hours as needed for Nausea and Vomiting (N/V) for up to 15 doses. ondansetron 2020-0 Yes [id number] 4mg Take 1 Univers 4 mg 3-06 tablet by ity of disintegrat 00:00: mouth [place] ing tablet 00 every 8 Medica l (eight) Branch hours as needed for Nausea and Vomiting (N/V) for up to 15 doses. ondansetron 2020-0 Yes [id number] 4mg Take 1 Univers 4 mg 3-06 tablet by ity of disintegrat 00:00: mouth [place] ing tablet 00 every 8 Medica l (eight) Branch hours as needed for Nausea and Vomiting (N/V) for up to 15 doses. ondansetron 2020-0 Yes [id number] 4mg Take 1 Univers 4 mg 3-06 tablet by ity of disintegrat 00:00: mouth [place] ing tablet 00 every 8 Medica l (eight) Branch hours as needed for Nausea and Vomiting (N/V) for up to 15 doses. ondansetron 2020-0 Yes [id number] 4mg Take 1 Univers 4 mg 3-06 tablet by ity of disintegrat 00:00: mouth [place] ing tablet 00 every 8 Medica l (eight) Branch hours as needed for Nausea and Vomiting (N/V) for up to 15 doses. ondansetron 2020-0 Yes [id number] 4mg Take 1 Univers 4 mg 3-06 tablet by ity of disintegrat 00:00: mouth [place] ing tablet 00 every 8 Medica l (eight) Branch hours as needed for Nausea and Vomiting (N/V) for up to 15 doses. ondansetron 2020-0 Yes [id number] 4mg Take 1 Univers 4 mg 3-06 tablet by ity of disintegrat 00:00: mouth [place] ing tablet 00 every 8 Medica l (eight) Branch hours as needed for Nausea and Vomiting (N/V) for up to 15 doses. ondansetron 2020-0 Yes [id number] 4mg Take 1 Univers 4 mg 3-06 tablet by ity of disintegrat 00:00: mouth [place] ing tablet 00 every 8 Medica l (eight) Branch hours as needed for Nausea and Vomiting (N/V) for up to 15 doses. ondansetron 2020-0 Yes [id number] 4mg Take 1 Univers 4 mg 3-06 tablet by ity of disintegrat 00:00: mouth [place] ing tablet 00 every 8 Medica l (eight) Branch hours as needed for Nausea and Vomiting (N/V) for up to 15 doses. ondansetron 2020-0 Yes [id number] 4mg Take 1 Univers 4 mg 3-06 tablet by ity of disintegrat 00:00: mouth [place] ing tablet 00 every 8 Medica l (eight) Branch hours as needed for Nausea and Vomiting (N/V) for up to 15 doses. ondansetron 2020-0 Yes [id number] 4mg Take 1 Univers 4 mg 3-06 tablet by ity of disintegrat 00:00: mouth [place] ing tablet 00 every 8 Medica l (eight) Branch hours as needed for Nausea and Vomiting (N/V) for up to 15 doses. ondansetron 2020-0 Yes [id number] 4mg Take 1 Univers 4 mg 3-06 tablet by ity of disintegrat 00:00: mouth [place] ing tablet 00 every 8 Medica l (eight) Branch hours as needed for Nausea and Vomiting (N/V) for up to 15 doses. ondansetron 2020-0 Yes [id number] 4mg Take 1 Univers 4 mg 3-06 tablet by ity of disintegrat 00:00: mouth [place] ing tablet 00 every 8 Medica l (eight) Branch hours as needed for Nausea and Vomiting (N/V) for up to 15 doses. ondansetron 2020-0 Yes [id number] 4mg Take 1 [facility] 4 mg 3-06 tablet by ity of disintegrat 00:00: mouth [place] ing tablet 00 every 8 Medica l (eight) Branch hours as needed for Nausea and Vomiting (N/V) for up to 15 doses. ondansetron 2020-0 Yes [id number] 4mg Take 1 Univers 4 mg 3-06 tablet by ity of disintegrat 00:00: mouth [place] ing tablet 00 every 8 Medica l (eight) Branch hours as needed for Nausea and Vomiting (N/V) for up to 15 doses. ondansetron 2020-0 Yes [id number] 4mg Take 1 Univers 4 mg 3-06 tablet by ity of disintegrat 00:00: mouth [place] ing tablet 00 every 8 Medica l (eight) Branch hours as needed for Nausea and Vomiting (N/V) for up to 15 doses. ondansetron 2020-0 Yes [id number] 4mg Take 1 [facility] 4 mg 3-06 tablet by ity of disintegrat 00:00: mouth [place] ing tablet 00 every 8 Medica l (eight) Branch hours as needed for Nausea and Vomiting (N/V) for up to 15 doses. ondansetron 2020-0 Yes [id number] 4mg Take 1 Univers 4 mg 3-06 tablet by ity of disintegrat 00:00: mouth [place] ing tablet 00 every 8 Medica l (eight) Branch hours as needed for Nausea and Vomiting (N/V) for up to 15 doses. ondansetron 2020-0 Yes [id number] 4mg Take 1 [facility] 4 mg 3-06 tablet by ity of disintegrat 00:00: mouth [place] ing tablet 00 every 8 Medica l (eight) Branch hours as needed for Nausea and Vomiting (N/V) for up to 15 doses. ondansetron 2020-0 Yes [id number] 4mg Take 1 [facility] 4 mg 3-06 tablet by ity of disintegrat 00:00: mouth [place] ing tablet 00 every 8 Medica l (eight) Branch hours as needed for Nausea and Vomiting (N/V) for up to 15 doses. ondansetron 2020-0 Yes [id number] 4mg Take 1 [facility] 4 mg 3-06 tablet by ity of disintegrat 00:00: mouth [place] ing tablet 00 every 8 Medica l (eight) Branch hours as needed for Nausea and Vomiting (N/V) for up to 15 doses. ondansetron 2020-0 2021- No [id number] 4mg Take 1 [facility] 4 mg 3-06 04-10 tablet by ity of disintegrat 00:00: 00:00 mouth [place] ing tablet 00 :00 every 8 Medica l (eight) Branch hours as needed for Nausea and Vomiting (N/V) for up to 15 doses. Amoxicillin Amoxicillin 2020-0 Yes M.A. 1 tablet [...] i ty of Tablet Tablet 00:00: TWICE [place] DAILY. Physici ans Nicotine 14 Nicotine 14 2019-0 Yes M.A. QD APPLY 1 Univers MG/24HR MG/24HR 3-05 PATCH ity of Transdermal Transdermal 00:00: DAILY [place] Patch 24 Patch 24 00 DIRECTED. Ph [...] DAILY. [place] 00 Physici ans Ferrous Ferrous 2020-0 Yes M.A. Q0.3333D TAKE 1 U nivers [...] 00 DAILY. Physi ci ans Nitroglycer Nitroglycer 2020-[address] 1 Univers in 0.4 MG in 0.4 MG 3-05 TABLET ity of Sublingual Sublingual 00:00: UNDER THE [place] Tablet Tablet 00 TONGUE Physici Sublingual Sublingual EVERY 5 ans MINUTES FOR UP TO 3 DOSES NEEDED FOR CHEST PAIN.CALL 911 IF PAIN PERSISTS. HumuLIN R HumuLIN R 2020-0 Yes M.A. inject 12 Univers 100 UNIT/ML 100 UNIT/ML 3-05 units ity of Injection Injection 00:00: under the [place] Solution Solution 00 skin 2 Physi ci times ans daily before breakfast and dinner. furosemide 2020-0 Yes 40mg 40 mg, Unive rs (LASIX) 3-03 Oral, ity of tablet 40 23:00: QAM+PM, [place] mg 00 First dose Medical on [facility] 09/15/19 at 1700, Until Discontinu ed, Routine metoprolol 2020-0 Yes 50mg Take 50 mg U nivers succinate 3-03 by mouth ity of 50 mg CSpX 20:03: daily. [address] spironolact 2020-0 Yes 25mg Take 25 mg Univers one 25 mg 3-03 by mouth ity of tablet 20:03: daily. [address] insulin NPH 2020-0 Yes 18U inject 18 U nivers human 3-03 Units ity of isophane 20:03: under the [place] (HUMULIN N 35 skin 2 Medical NPH INSULIN (two) Branch [facility] times daily. metoprolol 2020-0 Yes 50mg Take 50 mg U nivers succinate 3-03 by mouth ity of 50 mg CSpX 20:03: daily. [address] spironolact 2020-0 Yes 25mg Take 25 mg Univers one 25 mg 3-03 by mouth ity of tablet 20:03: daily. [address] insulin NPH 2020-0 Yes 18U inject 18 U nivers human 3-03 Units ity of isophane 20:03: [place] (HUMULIN N 35 skin 2 Medical NPH INSULIN (two) Branch [facility]) times daily. metoprolol 2020-0 Yes 50mg Take 50 mg U nivers succinate 3-03 by mouth ity of 50 mg CSpX 20:03: daily. [address] spironolact 2020-0 Yes 25mg Take 25 mg [facility] one 25 mg 3-03 by mouth ity of tablet 20:03: daily. [address] insulin NPH 2020-0 Yes 18U inject 18 U nivers human 3-03 Units ity of isophane 20:03: [place] (HUMULIN N 35 skin 2 Medical NPH INSULIN (two) Branch [facility]) times daily. metoprolol 2020-0 Yes 50mg Take 50 mg U nivers succinate 3-03 by mouth ity of 50 mg CSpX 20:03: daily. [address] spironolact 2020-0 Yes 25mg Take 25 mg [facility] one 25 mg 3-03 by mouth ity of tablet 20:03: daily. [address] insulin NPH 2020-0 Yes 18U inject 18 U nivers human 3-03 Units ity of isophane 20:03: [place] (HUMULIN N 35 skin 2 Medical NPH INSULIN (two) Branch [facility]) times daily. furosemide 2020-0 2020- No 40mg Take 40 mg [facility] 40 mg 3-03 03-03 by mouth ity of tablet 18:07: 00:00 daily. [place] 59 :00 Medical Branch doxycycline 2020-0 Yes [id number] 100mg Take 1 [facility] hyclate 100 3-03 9103 capsule by it y of mg capsule 00:00: mouth [place] 00 every 12 Medical (twelve) Branch hours. furosemide 2020-0 Yes [id number] 40mg Take 1 [facility] 40 mg 3-03 9103 tablet by ity of tablet 00:00: mouth [place] 00 every Medical morning Branch and evening. lisinopril 2020-0 Yes [id number] 5mg Take 1 [facility] 5 mg tablet 3-03 9103 tablet by ity of 00:00: mouth 2 [place] 00 (two) Medical times Branch daily. amoxicillin 2020-0 Yes [id number] 1{tbl} Take 1 Univers -clavulanat 3-03 9103 tablet by ity of e 00:00: mouth 2 [place] (AUGMENTIN) 00 (two) Medical 875-125 mg times Branch per tablet daily. doxycycline 2020-0 Yes [id number] 100mg Take 1 [facility] hyclate 100 3-03 9103 capsule by it y of mg capsule 00:00: mouth [place] 00 every 12 Medical (twelve) Branch hours. furosemide 2020-0 Yes [id number] 40mg Take 1 [facility] 40 mg 3-03 9103 tablet by ity of tablet 00:00: mouth [place] 00 every Medical morning Branch and evening. lisinopril 2020-0 Yes [id number] 5mg Take 1 [facility] 5 mg tablet 3-03 9103 tablet by ity of 00:00: mouth 2 [place] 00 (two) Medical times Branch daily. amoxicillin 2020-0 Yes [id number] 1{tbl} Take 1 Univers -clavulanat 3-03 9103 tablet by ity of e 00:00: mouth 2 [place] (AUGMENTIN) 00 (two) Medical 875-125 mg times Branch per tablet daily. doxycycline 2020-0 Yes [id number] 100mg Take 1 [facility] hyclate 100 3-03 9103 capsule by it y of mg capsule 00:00: mouth [place] 00 every 12 Medical (twelve) Branch hours. furosemide 2020-0 Yes [id number] 40mg Take 1 [facility] 40 mg 3-03 9103 tablet by ity of tablet 00:00: mouth [place] 00 every Medical morning Branch and evening. lisinopril 2020-0 Yes [id number] 5mg Take 1 [facility] 5 mg tablet 3-03 9103 tablet by ity of 00:00: mouth 2 [place] 00 (two) Medical times Branch daily. amoxicillin 2020-0 Yes [id number] 1{tbl} Take 1 [facility] -clavulanat 3-03 9103 tablet by ity of e 00:00: mouth 2 [place] (AUGMENTIN) 00 (two) Medical 875-125 mg times Branch per tablet daily. doxycycline 2020-0 Yes [id number] 100mg Take 1 [facility] hyclate 100 3-03 9103 capsule by it y of mg capsule 00:00: mouth [place] 00 every 12 Medical (twelve) Branch hours. furosemide 2020-0 Yes [id number] 40mg Take 1 [facility] 40 mg 3-03 9103 tablet by ity of tablet 00:00: mouth [place] 00 every Medical morning Branch and evening. lisinopril 2020-0 Yes [id number] 5mg Take 1 [facility] 5 mg tablet 3-03 9103 tablet by ity of 00:00: mouth 2 [place] 00 (two) Medical times Branch daily. amoxicillin 2020-0 Yes [id number] 1{tbl} Take 1 Univers -clavulanat 3-03 9103 tablet by ity of e 00:00: mouth 2 [place] (AUGMENTIN) 00 (two) Medical 875-125 mg times Branch per tablet daily. doxycycline 2020-0 Yes [id number] 100mg Take 1 [facility] hyclate 100 3-03 9103 capsule by it y of mg capsule 00:00: mouth [place] 00 every 12 Medical (twelve) Branch hours. furosemide 2020-0 Yes [id number] 40mg Take 1 [facility] 40 mg 3-03 9103 tablet by ity of tablet 00:00: mouth [place] 00 every Medical morning Branch and evening. lisinopril 2020-0 Yes [id number] 5mg Take 1 [facility] 5 mg tablet 3-03 9103 tablet by ity of 00:00: mouth 2 [place] 00 (two) Medical times Branch daily. amoxicillin 2020-0 Yes [id number] 1{tbl} Take 1 Univers -clavulanat 3-03 9103 tablet by ity of e 00:00: mouth 2 [place] (AUGMENTIN) 00 (two) Medical 875-125 mg times Branch per tablet daily. doxycycline 2020-0 Yes [id number] 100mg Take 1 [facility] hyclate 100 3-03 9103 capsule by it y of mg capsule 00:00: mouth [place] 00 every 12 Medical (twelve) Branch hours. furosemide 2020-0 Yes [id number] 40mg Take 1 [facility] 40 mg 3-03 9103 tablet by ity of tablet 00:00: mouth [place] 00 every Medical morning Branch and evening. furosemide 2020-0 Yes [id number] 40mg Take 1 [facility] 40 mg 3-03 9103 tablet by ity of tablet 00:00: mouth [place] 00 every Medical morning Branch and evening. furosemide 2020-0 Yes [id number] 40mg Take 1 [facility] 40 mg 3-03 9103 tablet by ity of tablet 00:00: mouth [place] 00 every Medical morning Branch and evening. lisinopril 2020-0 Yes [id number] 5mg Take 1 [facility] 5 mg tablet 3-03 9103 tablet by ity of 00:00: mouth 2 [place] 00 (two) Medical times Branch daily. amoxicillin 2020-0 Yes [id number] 1{tbl} Take 1 [facility] -clavulanat 3-03 9103 tablet by ity of e 00:00: mouth 2 [place] (AUGMENTIN) 00 (two) Medical 875-125 mg times Branch per tablet daily. doxycycline 2020-0 Yes [id number] 100mg Take 1 Univers hyclate 100 3-03 9103 capsule by it y of mg capsule 00:00: mouth [place] 00 every 12 Medical (twelve) Branch hours. furosemide 2020-0 Yes [id number] 40mg Take 1 [facility] 40 mg 3-03 9103 tablet by ity of tablet 00:00: mouth [place] 00 every Medical morning Branch and evening. lisinopril 2020-0 Yes [id number] 5mg Take 1 [facility] 5 mg tablet 3-03 9103 tablet by ity of 00:00: mouth 2 00 (two) Medical times Branch daily. amoxicillin 2020-0 Yes [id number] 1{tbl} Take 1 [facility] -clavulanat 3-03 9103 tablet by ity of e 00:00: mouth 2 [place] (AUGMENTIN) 00 (two) Medical 875-125 mg times Branch per tablet daily. doxycycline 2020-0 Yes [id number] 100mg Take 1 [facility] hyclate 100 3-03 9103 capsule by it y of mg capsule 00:00: mouth [place] 00 every 12 Medical (twelve) Branch hours. furosemide 2020-0 Yes [id number] 40mg Take 1 [facility] 40 mg 3-03 9103 tablet by ity of tablet 00:00: mouth [place] 00 every Medical morning Branch and evening. lisinopril 2020-0 Yes [id number] 5mg Take 1 [facility] 5 mg tablet 3-03 9103 tablet by ity of 00:00: mouth 2 [place] 00 (two) Medical times Branch daily. amoxicillin 2020-0 Yes [id number] 1{tbl} Take 1 Univers -clavulanat 3-03 9103 tablet by ity of e 00:00: mouth 2 [place] (AUGMENTIN) 00 (two) Medical 875-125 mg times Branch per tablet daily. furosemide 2020-0 2020- No [id number] 40mg Take 1 [facility] 40 mg 3-03 04-06 9103 tablet by ity of tablet 00:00: 00:00 mouth [place] 00 :00 every Medical morning Branch and evening. furosemide 2019- 2020- No [id number] 40mg Take 1 [facility] 40 mg 09-14 9103 tablet by ity of tablet 00:00: 00:00 mouth [place] 00 :00 every Medical morning Branch and evening. lisinopril 2020- No [id number] 5mg Take 1 Univers 5 mg tablet 09-14 9103 tablet by it y of 00:00: 00:00 mouth 2 [place] 00 :00 (two) Medical times Branch daily. amoxicillin 2019- No [id number] 1{tbl} Take 1 Univers -clavulanat 09-14 9103 tablet by it y of e 00:00: 00:00 mouth 2 [place] (AUGMENTIN) 00 :00 (two) Medical 875-125 mg times Branch per tablet daily. doxycycline 2019- No [id number] 100mg Take 1 Univers hyclate 100 09-14 9103 capsule by i ty of mg capsule 00:00: 00:00 mouth [place] 00 :00 every 12 Medical (twelve) Branch hours. ceFEPIme Yes 1000mg 1,000 mg, Un michael (MAXIPIME) 09-13 IV ity of 1,000 mg in 17:45: Piggyback, [place] NaCl 0.9% 00 Q12H ABX, Medic al (NS) 50 mL First dose [facility] MINI-BAG on Sat09/14/19 at 1145, Until Discontinu ed, 50 mL
R russ for Anti-Infec tive: Empiric Therapy for Suspected Infection< br>Empiric Therapy Site: Respirator y
Durat ion of therapy: 72 hours bumetanide 2019- No 1mg 1 mg, Slow Univers (BUMEX) 09-13 IV Push, ity of injection 1 15:00: 16:50 Q8H, First [place] mg 00 :02 dose on Medical Sat09/14/19 Branch at 0900, Until Discontinu ed, Routine FENTanyl PF Yes 25ug 25 mcg, Uni vers (SUBLIMAZE 09-13 Slow IV ity of (PF)) 02:51: Push, [place] injection 25 Q6HPRN, Medical 25 mcg Starting Branch [place] 09/13/19 at 205, Until Discontinu ed, Routine, Pain (scale 7-10) azithromyci 2020-0 Yes 500mg 500 mg, Un michael n 3- Oral, ity of (ZITHROMAX) 15:00: DAILY, [place] tablet 500 00 First dose Med ical mg on [facility] 09/13/19 at 0900, Until Discontinu ed, KATHY
Re ason for Anti-Infec tive: Empiric Therapy for Suspected Infection< br>Empiric Therapy Site: Respirator y
Durat ion of therapy: 72 hours enoxaparin 2020-0 Yes 40mg 40 mg, Unive rs (LOVENOX) 09-12 Subcutaneo ity of injection 15:00: us, DAILY, [place] 40 mg 00 First dose Medical on [facility] 09/13/19 at 0900, Until Discontinu ed, Routine insulin NPH 2020-0 Yes 18U 18 Units, U nivers (HUMULIN N) 09-12 Subcutaneo it y of injection 15:00: us, [place] 18 Units 00 QAM+PM, Medical First dose Branch on [place] 09/13/19 at 0900, Until Discontinu ed clopidogreL 2020-0 Yes 75mg 75 mg, Univ ers (PLAVIX) 09-12 Oral, ity of tablet 75 15:00: DAILY, [place] mg 00 First dose Medical on [facility] 09/13/19 at 0900, Until Discontinu ed, Routine aspirin 2020-0 Yes 81mg 81 mg, Univers chewable 09-12 Oral, ity of tablet 81 15:00: DAILY, [place] mg 00 First dose Medical on [facility] 09/13/19 at 0900, Until Discontinu ed, Routine lisinopril 2020-0 Yes 5mg 5 mg, Univer s (PRINIVIL,Z 09-12 Oral, BID, it y of ESTRIL) 14:00: [place] tablet 5 mg 00 on [facility] l 09/13/19 at Branch 0800, Until Discontinu ed, Routine ferrous 2020-0 Yes 325mg 325 mg, Univer s sulfate 09-12 Oral, TID ity of tablet 325 14:00: MEALS, [place] mg 00 First dose Medical on [facility] 09/13/19 at 0800, Until Discontinu ed, Routine insulin 2020-0 Yes 12U 12 Units, [facility] [place] [facility] [place] rs regular 3 Subcutaneo ity of human 13:30: us, BIDAC, [place] (HUMULIN R) 00 First dose Me dical injection on [place] Branch 12 Units 09/13/19 at 0730, Until Discontinu ed, Routine metoprolol 2020-0 Yes 50mg 50 mg, Unive rs succinate 09-12 Oral, ity of XL (TOPROL 12:00: QAM-0600, [place] XL) tablet 00 First dose Med ical 50 mg on [place] Branch 09/13/19 at 0600, Until Discontinu ed bumetanide 2020-0 2020- No 1mg 1 mg, Slow Univers (BUMEX) 09-12 03 IV Push, ity of injection 1 04:00: 20:30 Q8H, 3 You as mg 00 :00 doses, Medical First dose Branch on 09/12/19 at 2200, Last dose on 09/13/19 at 1400, Routine atorvastati 2020-0 Yes 80mg 80 mg, Univ ers n (LIPITOR) 09-12 Oral, QHS, it y of tablet 80 03:00: First dose [place] mg 00 on [facility] Medical 09/12/19 at Branch 2100, Until Discontinu ed, Routine Sliding 2020-0 Yes Subcutaneo Univ ers Scale 3 us, TID ity of Insulin - 03:00: MEALS+HS, You as Lispro 00 First dose Medical (HumaLOG) + on [facility] Branch Fsbg 09/12/19 at Testing 2100, Until Discontinu ed, Routine benzonatate 2020-0 Yes 100mg 100 mg, Un michael (TESSALON 09-12 Oral, ity of PERLES) 02:26: Q6HPRN, [place] capsule 100 20 Starting Medi lizzy mg Sat Branch 09/12/19 at 2025, Until Discontinu ed, Routine, Cough ipratropium 2020-0 Yes .5mg 0.5 mg, Uni vers (ATROVENT) 09-12 Inhalation ity of 0.02 % 02:00: , QID, [place] nebulizer 00 First dose Medi lizzy solution on [facility] Branch 0.5 mg 09/12/19 at 2000, Until Discontinu ed, Routine docusate 2020-0 Yes 100mg 100 mg, Unive rs (COLACE) 3 Oral, BID, ity o f capsule 100 02:00: First dose [place] mg 00 on Sat Medical 09/12/19 at Branch 1999, Until Discontinu ed, Routine ondansetron 2020-0 Yes 4mg 4 mg, Slow Univers (ZOFRAN 09-12 IV Push, ity of (PF)) 00:11: Q6HPRN, [place] injection 4 27 Starting Medi lizzy mg Sat Branch 09/12/19 at 1811, Until Discontinu ed, Routine, Nausea and Vomiting (N/V) acetaminoph 2020-0 Yes 650mg 650 mg, Un michael en 09-12 Oral, ity of (TYLENOL) 00:11: Q6HPRN, [place] tablet 650 19 Starting Medic al mg Sat Branch 09/12/19 at 1811, Until Discontinu ed, Routine, Pain (scale 1-3) nitroglycer 2020-0 Yes .4mg 0.4 mg, Uni vers in 09-12 Sublingual ity of (NITROSTAT) 00:09: , Q5MIN [place] sublingual 52 PRN, Medical tablet 0.4 Starting Branc h mg 09/12/19 at 1809, Until Discontinu ed, Routine, Chest pain heparin 2019-0 2020- No 12U/kg/ 12 Univer s 25,000 h Units/kg/h ity of unit/250 mL 19:00: 23:53 r ?80 kg [place] (Premixed 00 :52 (9.6 Medical Bag) in D5W mL/hr), IV Br anch Infusion, CONTINUOUS , Starting 09/12/19 at 1300, Until 09/12/19 at 1753 bumetanide 2020-0 2020- No 1.25mg 1.25 mg, Univers (BUMEX) Slow IV ity of injection 18:15: 23:53 Push, [place] 1.25 mg 00 :52 Q24H, Medical First dose Branch on 09/12/19 at 1215, Until Discontinu ed, Routine heparin 2019-0 2020- No 4000U 4,000 Univers 5,000 Units, ity of unit/mL 18:00: 18:09 Intravenou You as injection 00 :00 s, ONCE, 1 Medi lizzy 4,000 Units dose, Sat Bra nch 09/12/19 at 1200, Routine azithromyci 2020-0 2020- No 500mg 500 mg, IV Univers n Piggyback, ity of (ZITHROMAX) 17:00: 16:33 ONCE, 1 [place] 500 mg in 00 :00 dose, Sat Medic al NaCl 0.9% 09/12/19 at Bran ch (NS) 250 mL 1100, STAT
Re ason for Anti-Infec tive: Empiric Therapy for Suspected Infection< br>Empiric Therapy Site: Respirator y
Durat ion of therapy: 72 hours cefTRIAXone 2019-0 2020- No 1000mg 1,000 mg, Univers (ROCEPHIN) IV ity of 1,000 mg in 17:00: 16:57 Piggyback, [place] NaCl 0.9% 00 :00 ONCE, 1 Medical (NS) 50 mL dose, Sat Bran ch MINI-BAG 09/12/19 at 1100, 50 mL
Reas on for Anti-Infec tive: Empiric Therapy for Suspected Infection< br>Empiric Therapy Site: Skin / Soft tissue
Duration of therapy: 72 hours
F aculty member approving Restricted medication : SANG LEAL metoprolol 2020-0 Yes 50mg Take 50 mg U nivers succinate 2-24 by mouth ity of 50 mg CSpX 20:31: daily. [address] spironolact 2020-0 Yes 25mg Take 25 mg Univers one 25 mg 2-24 by mouth ity of tablet 20:31: daily. [address] furosemide 2020-0 Yes 40mg Take 40 mg U nivers 40 mg 2-24 by mouth ity of tablet 20:31: daily. [address] insulin NPH 2020-0 Yes 18U inject 18 U nivers human 2-24 Units ity of isophane 20:31: [place] (HUMULIN N 45 skin 2 Medical NPH INSULIN (two) Branch [facility]) times daily. metoprolol 2020-0 Yes 50mg Take 50 mg U nivers succinate 2-24 by mouth ity of 50 mg CSpX 20:31: daily. [address] spironolact 2020-0 Yes 25mg Take 25 mg Univers one 25 mg 2-24 by mouth ity of tablet 20:31: daily. [address] furosemide 2020-0 Yes 40mg Take 40 mg U nivers 40 mg 2-24 by mouth ity of tablet 20:31: daily. [address] insulin NPH 2020-0 Yes 18U inject 18 U nivers human 2-24 Units ity of isophane 20:31: [place] (HUMULIN N 45 skin 2 Medical NPH INSULIN (two) Branch [facility]) times daily. metoprolol 2020-0 Yes 50mg Take 50 mg U nivers succinate 2-24 by mouth ity of 50 mg CSpX 20:31: daily. [address] spironolact 2020-0 Yes 25mg Take 25 mg [facility] one 25 mg 2-24 by mouth ity of tablet 20:31: daily. [address] furosemide 2020-0 Yes 40mg Take 40 mg U nivers 40 mg 2-24 by mouth ity of tablet 20:31: daily. [address] insulin NPH 2020-0 Yes 18U inject 18 U nivers human 2-24 Units ity of isophane 20:31: [place] (HUMULIN N 45 skin 2 Medical NPH INSULIN (two) Branch [facility]) times daily. clopidogreL 2020-0 Yes [id number] 75mg Take 1 Univers 75 mg 2-24 tablet by ity of tablet 00:00: mouth [place] 00 daily. Medical Branch nicotine 14 2020-0 Yes [id number] 1{patch Apply 1 Univers mg/24 hr 2-24 } Patch to ity of patch 00:00: area(s) [place] 00 every 24 Medical ([facility] Branch ur) hours. clopidogreL 2020-0 Yes [id number] 75mg Take 1 Univers 75 mg 2-24 tablet by ity of tablet 00:00: mouth [place] 00 daily. Medical Branch nicotine 14 2020-0 Yes [id number] 1{patch Apply 1 Univers mg/24 hr 2-24 } Patch to ity of patch 00:00: area(s) [place] 00 every 24 Medical ([facility] Branch ur) hours. clopidogreL 2020-0 Yes [id number] 75mg Take 1 Univers 75 mg 2-24 tablet by ity of tablet 00:00: mouth [place] 00 daily. Medical Branch nicotine 14 2020-0 Yes [id number] 1{patch Apply 1 Univers mg/24 hr 2-24 } Patch to ity of patch 00:00: area(s) [place] 00 every 24 Medical (twentyfo Branch ur) hours. clopidogreL 2020-0 Yes [id number] 75mg Take 1 Univers 75 mg 2-24 tablet by ity of tablet 00:00: mouth [place] 00 daily. Medical Branch nicotine 14 2020-0 Yes [id number] 1{patch Apply 1 Univers mg/24 hr 2-24 } Patch to ity of patch 00:00: area(s) [place] 00 every 24 Medical (twenty-fo Branch ur) hours. clopidogreL 2020-0 Yes [id number] 75mg Take 1 Univers 75 mg 2-24 tablet by ity of tablet 00:00: mouth [place] 00 daily. Medical Branch nicotine 14 2020-0 Yes [id number] 1{patch Apply 1 Univers mg/24 hr 2-24 } Patch to ity of patch 00:00: area(s) [place] 00 every 24 Medical ([facility] Branch ur) hours. clopidogreL 2020-0 Yes [id number] 75mg Take 1 Univers 75 mg 2-24 tablet by ity of tablet 00:00: mouth [place] 00 daily. Medical Branch nicotine 14 2020-0 Yes [id number] 1{patch Apply 1 Univers mg/24 hr 2-24 } Patch to ity of patch 00:00: area(s) [place] 00 every 24 Medical ([facility] Branch ur) hours. clopidogreL 2020-0 Yes [id number] 75mg Take 1 Univers 75 mg 2-24 tablet by ity of tablet 00:00: mouth [place] 00 daily. Medical Branch nicotine 14 2020-0 Yes [id number] 1{patch Apply 1 Univers mg/24 hr 2-24 } Patch to ity of patch 00:00: area(s) [place] 00 every 24 Medical ([facility] Branch ur) hours. clopidogreL 2020-0 Yes [id number] 75mg Take 1 Univers 75 mg 2-24 tablet by ity of tablet 00:00: mouth [place] 00 daily. Medical Branch nicotine 14 2020-0 Yes [id number] 1{patch Apply 1 Univers mg/24 hr 2-24 } Patch to ity of patch 00:00: area(s) [place] 00 every 24 Medical (twentyfo Branch ur) hours. nicotine 14 2020-0 Yes [id number] 1{patch Apply 1 Univers mg/24 hr 2-24 } Patch to ity of patch 00:00: area(s) [place] 00 every 24 Medical (twenty-fo Branch ur) hours. nicotine 14 2020-0 Yes [id number] 1{patch Apply 1 Univers mg/24 hr 2-24 } Patch to ity of patch 00:00: area(s) [place] 00 every 24 Medical (twenty-fo Branch ur) hours. nicotine 14 2020-0 Yes [id number] 1{patch Apply 1 Univers mg/24 hr 2-24 } Patch to ity of patch 00:00: area(s) [place] 00 every 24 Medical (twenty-fo Branch ur) hours. nicotine 14 2020-0 Yes [id number] 1{patch Apply 1 Univers mg/24 hr 2-24 } Patch to ity of patch 00:00: area(s) [place] 00 every 24 Medical (twenty-fo Branch ur) hours. nicotine 14 2020-0 Yes [id number] 1{patch Apply 1 Univers mg/24 hr 2-24 } Patch to ity of patch 00:00: area(s) [place] 00 every 24 Medical (twenty-fo Branch ur) hours. nicotine 14 2020-0 Yes [id number] 1{patch Apply 1 Univers mg/24 hr 2-24 } Patch to ity of patch 00:00: area(s) [place] 00 every 24 Medical (twenty-fo Branch ur) hours. nicotine 14 2020-0 Yes [id number] 1{patch Apply 1 Univers mg/24 hr 2-24 } Patch to ity of patch 00:00: area(s) [place] 00 every 24 Medical (twenty-fo Branch ur) hours. nicotine 14 2020-0 Yes [id number] 1{patch Apply 1 Univers mg/24 hr 2-24 } Patch to ity of patch 00:00: area(s) [place] 00 every 24 Medical (twenty-fo Branch ur) hours. nicotine 14 2020-0 Yes [id number] 1{patch Apply 1 Univers mg/24 hr 2-24 } Patch to ity of patch 00:00: area(s) [place] 00 every 24 Medical (twenty-fo Branch ur) hours. nicotine 14 2020-0 Yes [id number] 1{patch Apply 1 Univers mg/24 hr 2-24 } Patch to ity of patch 00:00: area(s) [place] 00 every 24 Medical (twenty-fo Branch ur) hours. nicotine 14 2020-0 Yes [id number] 1{patch Apply 1 Univers mg/24 hr 2-24 } Patch to ity of patch 00:00: area(s) [place] 00 every 24 Medical (twenty-fo Branch ur) hours. nicotine 14 2020-0 Yes [id number] 1{patch Apply 1 Univers mg/24 hr 2-24 } Patch to ity of patch 00:00: area(s) [place] 00 every 24 Medical (twenty-fo Branch ur) hours. nicotine 14 2020-0 Yes [id number] 1{patch Apply 1 Univers mg/24 hr 2-24 } Patch to ity of patch 00:00: area(s) [place] 00 every 24 Medical (twenty-fo Branch ur) hours. nicotine 14 2020-0 Yes [id number] 1{patch Apply 1 Univers mg/24 hr 2-24 } Patch to ity of patch 00:00: area(s) [place] 00 every 24 Medical (twenty-fo Branch ur) hours. nicotine 14 2020-0 Yes [id number] 1{patch Apply 1 Univers mg/24 hr 2-24 } Patch to ity of patch 00:00: area(s) [place] 00 every 24 Medical (twenty-fo Branch ur) hours. nicotine 14 2020-0 Yes [id number] 1{patch Apply 1 Univers mg/24 hr 2-24 } Patch to ity of patch 00:00: area(s) [place] 00 every 24 Medical (twenty-fo Branch ur) hours. nicotine 14 2020-0 Yes [id number] 1{patch Apply 1 Univers mg/24 hr 2-24 } Patch to ity of patch 00:00: area(s) [place] 00 every 24 Medical (twenty-fo Branch ur) hours. nicotine 14 2020-0 Yes [id number] 1{patch Apply 1 Univers mg/24 hr 2-24 } Patch to ity of patch 00:00: area(s) [place] 00 every 24 Medical (twenty-fo Branch ur) hours. nicotine 14 2020-0 Yes [id number] 1{patch Apply 1 Univers mg/24 hr 2-24 } Patch to ity of patch 00:00: area(s) [place] 00 every 24 Medical (twenty-fo Branch ur) hours. nicotine 14 2020-0 Yes [id number] 1{patch Apply 1 Univers mg/24 hr 2-24 } Patch to ity of patch 00:00: area(s) [place] 00 every 24 Medical (twenty-fo Branch ur) hours. nicotine 14 2020-0 Yes [id number] 1{patch Apply 1 Univers mg/24 hr 2-24 } Patch to ity of patch 00:00: area(s) [place] 00 every 24 Medical (twenty-fo Branch ur) hours. nicotine 14 2020-0 Yes [id number] 1{patch Apply 1 Univers mg/24 hr 2-24 } Patch to ity of patch 00:00: area(s) [place] 00 every 24 Medical (twenty-fo Branch ur) hours. nicotine 14 2020-0 Yes [id number] 1{patch Apply 1 Univers mg/24 hr 2-24 } Patch to ity of patch 00:00: area(s) [place] 00 every 24 Medical (twenty-fo Branch ur) hours. nicotine 14 2020-0 Yes [id number] 1{patch Apply 1 Univers mg/24 hr 2-24 } Patch to ity of patch 00:00: [facility](s) [place] 00 every 24 Medical (twenty-fo Branch ur) hours. nicotine 14 2020-0 Yes [id number] 1{patch Apply 1 Univers mg/24 hr 2-24 } Patch to ity of patch 00:00: area(s) [place] 00 every 24 Medical (twenty-fo Branch ur) hours. nicotine 14 2020-0 Yes [id number] 1{patch Apply 1 Univers mg/24 hr 2-24 } Patch to ity of patch 00:00: area(s) [place] 00 every 24 Medical (twenty-fo Branch ur) hours. nicotine 14 2020-0 Yes [id number] 1{patch Apply 1 Univers mg/24 hr 2-24 } Patch to ity of patch 00:00: area(s) [place] 00 every 24 Medical (twenty-fo Branch ur) hours. nicotine 14 2020-0 Yes [id number] 1{patch Apply 1 Univers mg/24 hr 2-24 } Patch to ity of patch 00:00: area(s) [place] 00 every 24 Medical (twenty-fo Branch ur) hours. nicotine 14 2020-0 Yes [id number] 1{patch Apply 1 Univers mg/24 hr 2-24 } Patch to ity of patch 00:00: [facility](s) [place] 00 every 24 Medical (twenty-fo Branch ur) hours. nicotine 14 2020-0 Yes [id number] 1{patch Apply 1 Univers mg/24 hr 2-24 } Patch to ity of patch 00:00: area(s) [place] 00 every 24 Medical (twenty-fo Branch ur) hours. nicotine 14 2020-0 Yes [id number] 1{patch Apply 1 Univers mg/24 hr 2-24 } Patch to ity of patch 00:00: area(s) [place] 00 every 24 Medical (twenty-fo Branch ur) hours. nicotine 14 2020-0 Yes [id number] 1{patch Apply 1 Univers mg/24 hr 2-24 } Patch to ity of patch 00:00: [facility](s) [place] 00 every 24 Medical (twenty-fo Branch ur) hours. nicotine 14 2020-0 Yes [id number] 1{patch Apply 1 Univers mg/24 hr 2-24 } Patch to ity of patch 00:00: area(s) [place] 00 every 24 Medical (twenty-fo Branch ur) hours. nicotine 14 2020-0 Yes [id number] 1{patch Apply 1 Univers mg/24 hr 2-24 } Patch to ity of patch 00:00: [facility](s) [place] 00 every 24 Medical (twenty-fo Branch ur) hours. nicotine 14 2020-0 Yes [id number] 1{patch Apply 1 [facility] mg/24 hr 2-24 } Patch to ity of patch 00:00: [facility](s) [place] 00 every 24 Medical (twenty-fo Branch ur) hours. nicotine 14 2020-0 Yes [id number] 1{patch Apply 1 [facility] mg/24 hr 2-24 } Patch to ity of patch 00:00: [facility](s) [place] 00 every 24 Medical (twenty-fo Branch ur) hours. nicotine 14 2020-0 Yes [id number] 1{patch Apply 1 Univers mg/24 hr 2-24 } Patch to ity of patch 00:00: [facility](s) [place] 00 every 24 Medical (twenty-fo Branch ur) hours. clopidogreL 2020-0 Yes [id number] 75mg Take 1 Univers 75 mg 2-24 tablet by ity of tablet 00:00: mouth [place] 00 daily. Medical Branch nicotine 14 2020-0 Yes [id number] 1{patch Apply 1 Univers mg/24 hr 2-24 } Patch to ity of patch 00:00: [facility](s) [place] 00 every 24 Medical (twenty-fo Branch ur) hours. clopidogreL 2020-0 Yes [id number] 75mg Take 1 Univers 75 mg 2-24 tablet by ity of tablet 00:00: mouth [place] 00 daily. Medical Branch nicotine 14 2020-0 Yes [id number] 1{patch Apply 1 [facility] mg/24 hr 2-24 } Patch to ity of patch 00:00: area(s) [place] 00 every 24 Medical (twentyfo Branch ur) hours. clopidogreL 2020-0 Yes [id number] 75mg Take 1 [facility] 75 mg 2-24 tablet by ity of tablet 00:00: mouth [place] 00 daily. Medical Branch nicotine 14 2020-0 Yes [id number] 1{patch Apply 1 [facility] mg/24 hr 2-24 } Patch to ity of patch 00:00: area(s) [place] 00 every 24 Medical (twenty-fo Branch ur) hours. clopidogreL 2020-0 Yes [id number] 75mg Take 1 [facility] 75 mg 2-24 tablet by ity of tablet 00:00: mouth [place] 00 daily. Medical Branch nicotine 14 2019-0 Yes [id number] 1{patch Apply 1 [facility] mg/24 hr 2-24 } Patch to ity of patch 00:00: [facility](s) [place] 00 every 24 Medical (twenty-fo Branch ur) hours. clopidogreL 2020-0 Yes [id number] 75mg Take 1 [facility] 75 mg 2-24 tablet by ity of tablet 00:00: mouth [place] 00 daily. Medical Branch nicotine 14 2019-0 Yes [id number] 1{patch Apply 1 [facility] mg/24 hr 2-24 } Patch to ity of patch 00:00: area(s) [place] 00 every 24 Medical (twenty-fo Branch ur) hours. nicotine 14 2020- No [id number] 1{patch Apply 1 [facility] mg/24 hr 2-24 04-10 } Patch to ity of patch 00:00: 00:00 area(s) [place] 00 :00 every 24 Medical (twentyfo Branch ur) hours. clopidogreL 2020-0 2020- No [id number] 75mg Take 1 Univers 75 mg 2-24 04-06 tablet by ity of tablet 00:00: 00:00 mouth [place] 00 :00 daily. Medical Branch clopidogreL 2020-0 2020- No [id number] 75mg Take 1 Univers 75 mg 2-24 04-06 tablet by ity of tablet 00:00: 00:00 mouth [place] 00 :00 daily. Medical Branch insulin 2019-0 2020- No 20U inject 20 Univ ers glargine,hu 2-23 02-23 Units ity of m.rec.anlog 15:33: 00:00 under the [place] (LANTUS 20 :00 skin 2 Medical U-100 (two) [place] INSULIN SC) times daily. insulin 2020-0 2020- No inject Univers aspart 2-06 09-23 under the ity of injection 15:33: 00:00 skin [place] 20 :00 before Medical meals. [place] HYDROcodone 2020-0 Yes 1{tbl} 1 tablet, Univers -acetaminop 2-23 Oral, ity of hen (NORCO 15:04: Q6HPRN, [place] 5) 5-325 mg 54 Starting Medi lizzy tablet 1 [facility] tablet 09/06/19 at 0904, Until Discontinu ed, Routine, Pain (scale 4-6) insulin 2020-0 Yes 40U 40 Units, Unive rs glargine 2-23 Subcutaneo ity o f (LANTUS 14:06: us, Q24H, [place] U-100) 00 First dose Medical injection on [facility] 40 Units 09/06/19 at 0815, Until Discontinu ed SERTraline 2019-0 Yes 50mg 50 mg, Unive rs (ZOLOFT) 2-23 Oral, QHS, ity o f tablet 50 03:00: First dose [place] mg 00 on [facility] Medical 09/05/19 at [place] 2100, Until Discontinu ed, Routine docusate 2019-0 Yes 100mg 100 mg, Unive rs (COLACE) 2-23 Oral, BID, ity o f capsule 100 02:00: First dose [place] mg 00 on [facility] 09/05/19 at [place] 2000, Until Discontinu ed, Routine atorvastati 2020-0 Yes [id number] 80mg Take 1 Univers n 80 mg 2-23 tablet by ity of tablet 00:00: mouth at [place] [address] bedtime. [facility] atorvastati 2020-0 Yes [id number] 80mg Take 1 Univers n 80 mg 2-23 tablet by ity of tablet 00:00: mouth at [place] [address] bedtime. [facility] atorvastati 2020-0 Yes [id number] 80mg Take 1 Univers n 80 mg 2-23 tablet by ity of tablet 00:00: mouth at [place] [address] bedtime. [facility] atorvastati 2020-0 Yes [id number] 80mg Take 1 Univers n 80 mg 2-23 tablet by ity of tablet 00:00: mouth at [place] [address] bedtime. [facility] atorvastati 2020-0 Yes [id number] 80mg Take 1 Univers n 80 mg 2-23 tablet by ity of tablet 00:00: mouth at [place] 00 bedtime. Medical Branch atorvastati 2019-0 Yes [id number] 80mg Take 1 Univers n 80 mg 2-23 tablet by ity of tablet 00:00: mouth at [place] [address] bedtime. Medical Branch atorvastati 2019-0 Yes [id number] 80mg Take 1 Univers n 80 mg 2-23 tablet by ity of tablet 00:00: mouth at [place] 00 bedtime. Medical Branch atorvastati 2019-0 Yes [id number] 80mg Take 1 Univers n 80 mg 2-23 tablet by ity of tablet 00:00: mouth at [place] [address] bedtime. Medical Branch atorvastati Yes [id number] 80mg Take 1 Univers n 80 mg 2-23 tablet by ity of tablet 00:00: mouth at [place] [address] bedtime. Medical Branch atorvastati 2019-0 Yes [id number] 80mg Take 1 Univers n 80 mg 2-23 tablet by ity of tablet 00:00: mouth at [place] [address] bedtime. Medical Branch atorvastati 0 Yes [id number] 80mg Take 1 Univers n 80 mg 2-23 tablet by ity of tablet 00:00: mouth at [place] [address] bedtime. Medical Branch atorvastati 0 Yes [id number] 80mg Take 1 Univers n 80 mg 2-23 tablet by ity of tablet 00:00: mouth at [place] [address] bedtime. Medical Branch atorvastati 2019-0 Yes [id number] 80mg Take 1 Univers n 80 mg 2-23 tablet by ity of tablet 00:00: mouth at [place] [address] bedtime. Medical Branch atorvastati 0 2020- No [id number] 80mg Take 1 Univers n 80 mg 2-23 04-06 tablet by ity of tablet 00:00: 00:00 mouth at [place] 00 :00 bedtime. Medical Branch atorvastati 0 2020- No [id number] 80mg Take 1 Univers n 80 mg 2-23 04-06 tablet by ity of tablet 00:00: 00:00 mouth at [place] 00 :00 bedtime. Medical Branch Sliding 2019-0 Yes Subcutaneo Univ ers Scale 2-22 us, AC+HS, ity of Insulin - 17:30: First dose [place] Aspart 00 on Sat Medical (NOVOLOG) + 09/05/19 at [facility]sbg 1130, Testing Until Discontinu ed, Routine ipratropium 2020-0 Yes 3mL 3 mL, Unive rs -albuterol 09-05 Inhalation ity of (DUONEB) 14:45: , Q6HPRN, [place] 0.5 mg-3 00 Starting Medical mg(2.5 mg [facility] base)/3 mL 09/05/19 at nebulizer 0845, solution 3 Until mL Discontinu ed, Routine, Wheezing, Shortness of Breath, Bronchospa sm ondansetron 2020-0 Yes 4mg 4 mg, Slow Univers (ZOFRAN 2- IV Push, ity of (PF)) 14:43: Q6HPRN, [place] injection 4 22 Starting Medi lizzy mg [facility] 09/05/19 at 0843, Until Discontinu ed, Routine, Nausea and Vomiting (N/V) KCL 20 2020-0 2020- No 20meq 20 mEq, Univer s mEq/15 mL 09-05 Oral, ity of solution 20 11:45: 11:29 ONCE, 1 [place] mEq 00 :00 dose, [facility] Medical 09/05/19 at Branch 0545, Routine melatonin 2020-0 Yes 3mg 3 mg, Univers (MELATIN) 2- Oral, QHS, ity of tablet 3 mg 03:00: First dose [place] 00 on Sat Medical 09/04/19 at Branch 2100, Until Discontinu ed, Routine magnesium 2020-0 2020- No 2g 2 g, IV Univ ers sulfate in 09-04 Piggyback, it y of water 2 13:30: 12:41 ONCE, 1 [place] gram/50 mL 00 :00 dose, Sat Medi lizzy (4 %) 09/04/19 at Branch infusion 2 0730, g Routine KCL 2020-0 2020- No 40meq 40 mEq, Univers (KLOR-CON 09-04 Oral, ity of M20) tablet 12:30: 12:43 ONCE, 1 [place] 40 mEq 00 :00 dose, Fri Medical 09/04/19 at Branch 0630, Routine clopidogreL 2020-0 Yes 75mg 75 mg, Univ ers (PLAVIX) 2-20 Oral, ity of tablet 75 15:00: DAILY, [place] mg 00 First dose Medical on [facility] Branch 09/03/19 at 0900, Until Discontinu ed, Routine
clergy member approving Restricted medication : JENIFFER MORAN metoclopram 2020-0 2020- No 10mg 10 mg, Uni vers bj HCl 09-02 Slow IV ity of (REGLAN) 22:45: 14:43 Push, Q6H, [place] injection 00 :46 First dose Medi lizzy 10 mg on Sat Branch 09/02/19 at 1645, Until Discontinu ed, Routine diphenhydrA 2020-0 Yes 12.5mg 12.5 mg, Univers MINE 09-02 IV ity of (BENADRYL) 21:50: Piggyback, [place] 12.5 mg in 49 Administer Med ical NaCl 0.9% over 30 Branch (NS) Minutes, piggyback Q6HPRN, Starting Sat09/02/19 at 1550, Until Discontinu ed, Routine, Nausea and Vomiting (N/V) proMETHazin 2019-0 Yes 25mg 25 mg, Univ ers e 09-02 Intravenou ity of (PHENERGAN) 17:08: s, Q4HPRN, [place] 25 mg in 32 Starting Medical NaCl 0.9% Sat Branch (NS) 50 mL 09/02/19 at piggyback 1108, Until Discontinu ed, 50 mL sennosides 2020-0 Yes 8.6mg 8.6 mg, Uni vers (SENOKOT) 09-02 Oral, ity of tablet 8.6 15:00: DAILY, [place] mg 00 First dose Medical on Sat Branch 09/02/19 at 0900, Until Discontinu ed, Routine docusate 2020-0 2020- No 100mg 100 mg, Univ ers (COLACE) 09-02 Oral, ity of capsule 100 15:00: 14:43 DAILY, [place] mg 00 :45 First dose Medical on Sat Branch 09/02/19 at 0900, Until Discontinu ed, Routine furosemide 2020-0 Yes 40mg 40 mg, Unive rs (LASIX) 09-02 Slow IV ity of injection 14:00: Push, [place] 40 mg 00 Q12H, Medical First dose Branch on Sat09/02/19 at 0800, Until Discontinu ed, Routine metoprolol 2020-0 Yes 25mg 25 mg, Unive rs tartrate 09-02 Oral, BID, ity o f (LOPRESSOR) 14:00: First dose [place] tablet 25 00 on Sat Medical mg 09/02/19 at Branch 0800, Until Discontinu ed, Routine heparin Yes 5000U 5,000 Univers (porcine) 09-02 Units, ity of injection 14:00: Subcutaneo [place] 5,000 Units 00 us, Q12H, Med ical First dose Branch on Sat09/02/19 at 0800, Until Discontinu ed, Routine magnesium 2019- No 1g 1 g, IV Univ ers sulfate in 09-02 Piggyback, it y of D5W 1 05:00: 05:16 ONCE, 1 [place] gram/100 mL 00 :00 dose, Tue Med ical RTU IV 09/01/19 at Branch Piggyback 1 2300, 100 g mL NORepinephr 2019- No .05ug/k 0.05-3 Univers ine 4 mg in 09-0222 g/min mcg/kg/min ity of D5W 250 mL 01:20: 14:43 ?78.3 kg [place] infusion 10 :44 (14.6813-8 Medic al RTU 80.875 Branch mL/hr, rounded to 14.68-880. 88 mL/hr), IV Infusion, TITRATE, MAP Goal > or = 65 mmHg, Starting Sat09/01/19 at 1920
In itiate titration at 0.05 mcg/kg/min . &nb sp;Increas e by 0.05 every 30 seconds to 5 minutes as needed to reach and maintain goal blood pressure.& nbsp;&nbsp ;Maximum dose = 3 mcg/kg/min . &nb sp;If goal not maintained at maximum allowed dose, contact prescriber .
protamine 2019- No 50mg 50 mg, IV Un michael injection 09-01 Push, ity of 50 mg 22:30: 21:36 ONCE, 1 [place] 00 :00 dose, Tue Medical 09/01/19 at Branch 1630, Routine calcium 2019- No 1000mg 1,000 mg, Un michael chloride 2-18 02-18 Intravenou ity of 100 mg/mL 22:15: 21:22 s, ONCE, 1 [place] (10 %) 00 :00 dose, Tue Medical syringe 09/01/19 at Branch 1,000 mg 1615, Routine magnesium 2019-2019- No 2g 2 g, IV Univ ers sulfate in 09-01 Piggyback, it y of water 2 22:15: 21:23 ONCE, 1 [place] gram/50 mL 00 :00 dose, Tue Medi lizzy (4 %) 09/01/19 at Branch infusion 2 1615, g Routine calcium 2019-2019- No 1000mg 1,000 mg, Un michael chloride 09-01 Intravenou ity of 100 mg/mL 20:45: 19:53 s, ONCE, 1 [place] (10 %) 00 :00 dose, Tue Medical syringe 09/01/19 at Branch 1,000 mg 1445, Routine sodium 2019-2019- No 1meq/kg 78.3 mEq Uni vers bicarbonate 09-01 (1 mEq/kg it y of 1 mEq/mL 20:45: 19:53 ?78.3 kg), [place] (8.4 %) 00 :00 Slow IV Medical injection Push, Branch 78.3 mEq ONCE, 1 dose, 09/01/19 at 1445, Routine albumin 2019-2019- No 12.5g 12.5 g, IV Un michael (ALBUMINAR- 09-01 Infusion, it y of 5) 5 % 20:45: 19:54 ONCE, 1 [place] injection 00 :00 dose, Tue Medic al 12.5 g 09/01/19 at Branch 1445, 250 mL
Ute cation: POST-OPERA TIVE VOLUME RESUSCITAT ION-CARDIA C SURGERY
Comments: May only be used if 3L or more of crystalloi d has been administer ed within a given 24 hour period without an adequate hemodynami c response. 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 Medical 235 mL/hr, Branch rounded to 2.35-35.24 mL/hr), IV Infusion, TITRATE, Sedation-R ASS score (0 to -1), Starting Sat09/01/19 at 1413, For 1 day
Ini tiate infusion at 5 mcg/kg/min and titrate by 5 mcg/kg/min every 30 seconds to 10 minutes to goal sedation score. Maximum dose = 75 mcg/kg/min . If goal not maintained at maximum allowed dose, contact prescriber . &amp ;nbsp;Inst ructions In the first 2 hours in ICU, if patient is hypertensi ve (systolic blood pressure persists > 150 MAP > 100), the infusion rate may be increased to a maximum of 75 mcg/kg/min . Stop propofol when bladder or other central temperatur e is => 36 C. May use morphine at this time (may require order to be entered) if sedation is still needed. Do not continue propofol after central temperatur e is > 36 C unless requested by [address] Resident or Faculty or SICU Faculty. Tubing and unused portions of vials should be discarded after 12 hours
aspirin 2019-0 Yes 81mg 81 mg, Univers chewable 2-18 Oral, ity of tablet 81 19:30: DAILY, [place] mg 00 First dose Medical on Sat [place] 09/01/19 at 1330, Until Discontinu ed, Routine ceFAZolin 2019-0 2020- No 2000mg 2 g (2,000 Univers in dextrose 09-01 02-19 mg), IV ity of (iso-os) 19:30: 14:09 Piggyback, [place] (ANCEF) 2 00 :00 Q8H ABX, 3 Medi lizzy gram/100 mL doses, Branch Piggyback 2 First dose g on Sat09/01/19 at 1330, Last dose on Sat09/02/19 at 0530, 100 mL
Reas on for Anti-Infec tive: Surgical Prophylaxi s
Surgi lizzy Prophylaxi s: Cardiothor acic
Du ration of therapy: within 24 hours of surgery ondansetron 2020-0 2020- No 4mg 4 mg, Slow Univers (ZOFRAN 2-18 09-05 IV Push, ity of (PF)) 19:19: 14:51 Q6HPRN, [place] injection 4 32 :48 Starting Medi lizzy mg e Branch 09/01/19 at 1319, Until 09/05/19 at 0851, KATHY, Nausea and Vomiting (N/V) naloxone 2020-0 Yes .1mg 0.1 mg, Univer s (NARCAN) 2-18 Slow IV ity of injection 19:17: Push, [place] 0.1 mg 45 SEE-INSTRU Medical CTIONS, Branch Starting e 09/01/19 at 1317, Until Discontinu ed, Routine furosemide 2020-0 Yes 20mg 20 mg, IV Un michael (LASIX) 2-18 Push, PRN, ity of injection 19:13: 2 doses, [place] 20 mg 07 Starting Medical [facility] 09/01/19 at 1313, Until Discontinu ed, KATHY, Pressure Maintenanc e NaCl 0.9% 2020-0 Yes 250mL at 999 Unive rs (NS) bolus 2-18 mL/hr, 250 ity of infusion 19:13: mL, IV [place] 250 mL 07 Infusion, Medical PRN - SEE Branch INSTRUCTIO NS, 3 doses, Starting e 09/01/19 at 1313, Until Discontinu ed, KATHY glucagon 2020-0 Yes 1mg 1 mg, Univers (GLUCAGEN 2-18 Intramuscu ity of DIAGNOSTIC 19:13: lar, PRN, [place] KIT) 06 Starting Medical injection 1 [facility] mg 09/01/19 at 1313, Until Discontinu ed, KATHY, Blood Glucose < or = 70 mg/dL and patient is unable to swallow or has mental changes. dextrose 50 2020-0 Yes 25mL 25 mL, Univ ers % in water 2-18 Slow IV ity of (D50W) 19:13: Push, PRN, [place] injection 06 Starting Medica l 25 mL e Branch 09/01/19 at 1313, Until Discontinu ed, KATHY, Blood Glucose < or = 70 mg/dL and patient is unable to swallow or has mental status changes. dextrose 50 2020-0 2020- No .5{vial 25 mL (0.5 Univers % in water 09-01 } Vial), ity of (D50W) 19:13: 14:49 Slow IV [place] injection 06 :00 Push, PRN, Medi lizzy 25 mL Starting Branch 09/01/19 at 1313, Until 09/05/19 at 0849, KATHY, For Blood Glucose < 60, recheck blood glucose 30 minutes after bolus insulin 2020-0 2020- No 2U/h 2 Units/hr Uni vers regular 09-01 (2 mL/hr), ity o f human 19:13: 14:43 IV [place] (HUMULIN R) 06 :44 Infusion, [facility] ica 100 Units TITRATE, Branch in D5W 100 Starting mL infusion 09/01/19 at 1313, Until 09/05/19 at 0843 acetaminoph 2020-0 Yes 650mg 650 mg, Un michael en 09-01 Rectal, ity of (TYLENOL) 19:13: Q6HPRN, [place] suppository 05 Starting Medi lizzy 650 mg Tue Branch 09/01/19 at 1313, Until Discontinu ed, KATHY, Temp > 38.5 C gentamicin 2020-0 Yes PRN, Univers 40 mg/mL 80 -18 Starting ity of mg, 14:28: e [place] vancomycin 00 09/01/19 at [facility] ica (VANCOCIN) 0828, Branch 1,000 mg in Intra-op NaCl 0.9% (NS) 1,000 mL OR irrigation heparin 2020-0 Yes PRN, Univers 1,000 -18 Starting ity of unit/mL 14:27: Tue [place] 5,000 Units 00 09/01/19 at Ut dical in NaCl 0827, Branch 0.9% (NS) Intra-op 500 mL OR irrigation papaverine 2020-0 Yes PRN, Univers 60 mg in -18 Starting ity of NaCl 0.9% 14:27: Tue [place] (NS) 60 mL 00 09/01/19 at [facility] ica [place] 0827, Branch irrigation Intra-op heparin 2020-0 Yes PRN, Univers 1,000 -18 Starting ity of unit/mL 14:25: Tue [place] injection 00 09/01/19 at Medi lizzy 0825, Branch Until Discontinu ed, Routine, Intra-op D5W IV 2020-0 2020- No 1000mL at 50 Univers infusion 09-01 02-22 mL/hr, IV ity o f 1,000 mL 04:15: 14:43 Infusion, You as 00 :44 CONTINUOUS Medical , Starting Branch 08/31/19 at 2215, Until 09/05/19 at 0843, Routine chlorhexidi 2020-0 Yes Topical, Un michael ne 17 PRE-PROCED ity of (JARRED-HEX) 19:17: URE ONCE, [place] 4 % liquid 41 1 dose, Medica l Starting Branch Sat08/31/19 at 1317, Until Discontinu ed, Routine, Wound care furosemide 2020-0 2020- No 40mg 40 mg, Univ ers (LASIX) 08-29 Slow IV ity of injection 02:00: 17:00 Push, [place] 40 mg 00 :51 Q12H, Medical First dose Branch on Sat08/28/19 at 2000, Until Discontinu ed, Routine furosemide 2020-0 2020- No 20mg 20 mg, Univ ers (LASIX) 08-28- Slow IV ity of injection 16:45: 21:51 Push, [place] 20 mg 00 :27 DAILY, Medical First dose Branch on Sat08/28/19 at 1045, Until Discontinu ed, Routine lisinopril 2020-0 2020- No 10mg 10 mg, Univ ers (PRINIVIL,Z 08-2719 Oral, ity of ESTRIL) 15:00: 13:18 DAILY, [place] tablet 10 00 :29 First dose Medi lizzy mg on [facility] Branch 08/27/19 at 0900, Until Discontinu ed, Routine NaCl 0.9% 2020-0 2020- No IV Univers (NS) IV 08-26-13 Infusion, ity of infusion 17:15: 17:14 at 75 [place] 00 :00 mL/hr, Medical CONTINUOUS Branch , Starting Sat08/26/19 at 1115, Until Sat08/27/19 at 1114, Routine atorvastati 2020-0 Yes 80mg 80 mg, Univ ers n (LIPITOR) 2-12 Oral, QHS, it y of tablet 80 03:00: First dose [place] mg 00 on [facility] 08/25/19 at Branch 2100, Until Discontinu ed, Routine furosemide 2020-0 2020- No 40mg 40 mg, Univ ers (LASIX) 08-25 Oral, ity of tablet 40 23:00: 16:15 QAM+PM, [place] mg 00 :13 First dose Medical on [facility] 08/25/19 at 1700, Until Discontinu ed, Routine magnesium 2020-0 2020- No 296mL 296 mL, Uni vers citrate 08-25 Oral, ity of solution 23:00: 23:22 ONCE, 1 [place] 296 mL 00 :00 dose, [facility] 08/25/19 at Branch 1700, Routine D5W 0.45% 2020-0 2020- No 1000mL at 100 Uni vers NaCl 08-25 mL/hr, ity of (1/2NS) IV 19:00: 16:15 1,000 mL, [place] infusion 00 :13 IV Medical 1,000 mL Infusion, Branch CONTINUOUS , Starting Sat08/25/19 at 1300, Until Sat08/26/19 at 1015, Routine peg-electro 2020-0 2020- No 4000mL 4,000 mL, Univers lyte soln 08-24 Oral, ity of (GOLYTELY) 23:00: 04:06 ONCE, 1 You as 236-22.74-6 00 :00 dose, [facility] Med ical .74 -5.86 08/24/19 at Bran ch gram 1700, solution Routine 4,000 mL furosemide 2020-0 2020- No 20mg 20 mg, IV U nivers (LASIX) 08-2309 Push, ity of injection 17:00: 18:04 ONCE, 1 [place] 20 mg 00 :00 dose, [facility] 08/23/19 at Branch 1100, Routine metoprolol 2020-0 2020- No 50mg 50 mg, Univ ers tartrate 08-22 Oral, BID, ity of (LOPRESSOR) 02:00: 13:17 First dose [place] tablet 50 00 :43 on Fri Medical mg 08/21/19 at Branch 2000, Until Discontinu ed, Routine furosemide 2020-0 2020- No 40mg 40 mg, Univ ers (LASIX) 08-22 Slow IV ity of injection 02:00: 15:59 Push, [place] 40 mg 00 :07 Q12H, Medical First dose Branch on Sat08/21/19 at 2000, Until Discontinu ed, Routine NaCl 0.9% 2019- No 1000mL at 50 Univ ers (NS) IV 08-22-08 mL/hr, IV ity of infusion 01:30: 13:29 Infusion, You [place] 1,000 mL 00 :00 CONTINUOUS Medic al , Starting Branch 08/21/19 at 1930, Until 08/22/19 at 0729, Routine lidocaine 2019-0 2020- No Infiltrati U nivers 1% (PF) 08-22 on, ity of (XYLOCAINE) 00:25: 00:25 TITRATE - [place] injection 30 :30 FOR Medical PROCEDURE Branch USE, 1 dose, Starting Sat08/21/19 at 1825, Until Sat08/21/19 at 1825, Routine lidocaine 2019-0 2020- No Infiltrati U nivers 1% (PF) 08-22 on, ity of (XYLOCAINE) 00:11: 00:11 TITRATE - [place] injection 01 :01 FOR Medical PROCEDURE Branch USE, 1 dose, Starting Sat08/21/19 at 1811, Until Sat08/21/19 at 1811, Routine FENTanyl PF 2019- 2020- No Slow IV Un michael (SUBLIMAZE 08-22 Push, ity of (PF)) 00:08: 00:08 TITRATE - [place] injection 29 :29 FOR Medical PROCEDURE Branch USE, 1 dose, Starting Sat08/21/19 at 1808, Until Sat08/21/19 at 1808, Routine midazolam 2019-0 2020- No IV Push, Uni vers (VERSED) 08-22 TITRATE - ity o f injection 00:08: 00:08 FOR [place] 23 :23 PROCEDURE Medical USE, 1 Branch dose, Starting Sat08/21/19 at 1808, Until Sat08/21/19 at 1808, Routine atorvastati 2019-0 2019- No 40mg 40 mg, Uni vers n (LIPITOR) 08-2111 Oral, QPM, i ty of tablet 40 23:00: 15:59 First dose [place] mg 00 :09 on Fri Medical 08/21/19 at Branch 1700, Until Discontinu ed, Routine pantoprazol 2019-0 Yes 40mg 40 mg, Univ ers e 08-21 Oral, ity of (PROTONIX) 15:00: DAILY, [place] EC tablet 00 First dose Medi lizzy 40 mg on Sat Branch 08/21/19 at 0900, Until Discontinu ed, Routine aspirin 2020-0 2020- No 81mg 81 mg, Univers chewable 08-21 Oral, ity of tablet 81 15:00: 19:23 DAILY, [place] mg 00 :06 First dose Medical on Sat Branch 08/21/19 at 0900, Until Discontinu ed, Routine clopidogreL 2020-0 2020- No 75mg 75 mg, Uni vers (PLAVIX) 08-21 Oral, ity of tablet 75 15:00: 14:31 DAILY, [place] mg 00 :08 First dose Medical on Sat Branch 08/21/19 at 0900, Until Discontinu ed, Routine
clergy member approving Restricted medication : EJNIFFER MORAN heparin 2019-0 2020- No 5000U 5,000 Univers (porcine) 08-21 Units, ity of injection 12:00: 19:23 Subcutaneo [place] 5,000 Units 00 :06 us, Q8H, Medi lizzy First dose Branch on Sat08/21/19 at 0600, Until Discontinu ed, Routine nicotine 2020-0 Yes 1{patch 1 Patch, Un michael (NICODERM) 08-21 } Topical, ity o f 21 mg/24 hr 04:15: Administer [place] patch 1 00 over 24 Medical Patch Hours, Branch Q24H, First dose on Francie 08/20/19 at 2215, Until Discontinu ed, Routine Sliding 2019-0 2020- No Subcutaneo Uni vers Scale 08-2122 us, Q4H, ity of Insulin - 03:15: 14:43 First dose [place] Aspart 00 :46 on [facility] Medical (NOVOLOG) + 08/20/19 at [facility] Fsbg 2114, Testing Until Discontinu ed, Routine metoprolol 2020-0 2020- No 25mg 25 mg, [facility] [place] [facility] ers tartrate 08-21 Oral, Q6H, ity of (LOPRESSOR) 03:15: 15:29 First dose [place] tablet 25 00 :06 on [facility] Medical mg 08/20/19 at Branch 2114, Until Discontinu ed, Routine ALPRAZolam 2020-0 Yes .5mg 0.5 mg, Univ ers (XANAX) 08-21 Oral, ity of tablet 0.5 03:10: QHSPRN, [place] mg 34 Starting Medical [place] 08/20/19 Branch at 2110, Until Discontinu ed, Routine, anxiety nitroglycer 2020-0 Yes .4mg 0.4 mg, Uni vers in 08-21 Sublingual ity of (NITROSTAT) 03:06: , Q5MIN You [place] sublingual 17 PRN, Medical tablet 0.4 Starting Branc h mg [place]ie 08/20/19 at 2106, Until Discontinu ed, Routine, Chest pain morpHINE 2019-0 Yes 2mg 2 mg, Slow Uni vers injection 2 08-21 IV Push, ity of mg 03:06: Q2HPRN, [place] 08 Starting Medical Francie 08/20/19 Branch at 2106, Until Discontinu ed, Routine, Chest pain glucagon 2019-0 Yes 1mg 1 mg, Univers (GLUCAGEN 08-21 Intramuscu ity of DIAGNOSTIC 03:04: lar, PRN, [place] KIT) 22 Starting Medical injection 1 [place] 08/20/19 Br anch mg at 2104, Until Discontinu ed, KATHY, Blood Glucose < or = 70 mg/dL and patient is unable to swallow or has mental changes. dextrose 50 2019-0 2020- No 25mL 25 mL, Uni vers % in water 08-21 Slow IV ity o f (D50W) 03:04: 19:40 [place] 22 :37 [place] Medica l 25 mL Franc[place] 08/20/19 Branch at 2104, Until 09/01/19 at 1340, KATHY, Blood Glucose < or = 70 mg/dL and patient is unable to swallow or has mental status changes. ondansetron 2019-0 2020- No 4mg 4 mg, Slow Univers (ZOFRAN 08-21- IV Push, ity of (PF)) 01:20: 01:23 ONCE, 1 [place] injection 4 00 :00 dose, Francie Med ical mg 08/20/19 at Branch 1930, Routine ondansetron 2019-0 2020- No 4mg 4 mg, Slow Univers (ZOFRAN 08-20 IV Push, ity of (PF)) 22:00: 19:29 Q6HPRN, [place] injection 4 19 :34 Starting Medi lizzy mg [facility] 08/20/19 Branch at 1600, Until Sat09/01/19 at 1329, Routine, Nausea and Vomiting (N/V) ALPRAZolam 2020- No .5mg 0.5 mg, Uni vers (XANAX) 08-20 Oral, ity of tablet 0.5 07:00: 06:45 ONCE, 1 [place] mg 00 :00 dose, [facility] 08/20/19 at Branch 0100, Routine atorvastati 2019- 2020- No 40mg 40 mg, Uni vers n (LIPITOR) 08-20 Oral, QHS, i ty of tablet 40 03:00: 03:12 First dose [place] mg 00 :55 on Sat [facility] 08/19/19 at Branch 2100, Until Discontinu ed, Routine KCL 2019- 2020- No 40meq 40 mEq, Univers (KLOR-CON 08-20 Oral, BID, ity of M20) tablet 02:00: 15:08 First dose [place] 40 mEq 00 :22 on Sat [facility] 08/19/19 at Branch 2000, Until Discontinu ed, Routine KCL 2020-0 2020- No 40meq 40 mEq, Univers (KLOR-CON 08-1905 Oral, ONCE ity of M20) tablet 15:30: 15:02 NOW, 1 [place] 40 mEq 00 :00 dose, Sat [facility] 08/19/19 at Branch 0930, Routine clopidogreL 2019- 2020- No 75mg 75 mg, Uni vers (PLAVIX) 08-19 Oral, ity of tablet 75 15:00: 03:12 DAILY, [place] mg 00 :55 First dose Medical on Sat [place] 08/19/19 at 0900, Until Discontinu ed, Routine aspirin 2020-0 2020- No 81mg 81 mg, Univers chewable 08-19 Oral, ity of tablet 81 15:00: 03:12 DAILY, [place] mg 00 :55 First dose Medical on Sat [place] 08/19/19 at 0900, Until Discontinu ed, Routine enoxaparin 2019-0 2020- No 40mg 40 mg, Univ ers (LOVENOX) 08-19 Subcutaneo ity of injection 15:00: 04:24 us, DAILY, [place] 40 mg 00 :57 First dose Medical on Sat08/19/19 at 0900, Until Discontinu ed, Routine ipratropium 2020-0 2020- No 3mL 3 mL, Univ ers -albuterol 08-19 Inhalation it y of (DUONEB) 14:00: 14:43 , QID, [place] 0.5 mg-3 00 :46 First dose Medic al mg(2.5 mg on Sat base)/3 mL 08/19/19 at nebulizer 0800, solution 3 Until mL Discontinu ed, Routine insulin 2020-0 Yes 12U 12 Units, Unive rs regular - Subcutaneo ity of human 13:30: us, BIDAC, Lori (HUMULIN R) 00 First dose Me dical injection on Sat 12 Units 08/19/19 at 0730, Until Discontinu ed, Routine ipratropium 2019-0 2020- No 3mL 3 mL, Univ ers -albuterol 08-19 Inhalation it y of (DUONEB) 10:30: 09:31 , ONCE, 1 You as 0.5 mg-3 00 :00 dose, Sat Medica l mg(2.5 mg 08/19/19 at [facility] h base)/3 mL 0430, nebulizer Routine solution 3 mL insulin 2019-0 2020- No 7U 7 Units, Unive rs regular -11 13- Subcutaneo ity o f human 05:30: 05:28 us, ONCE, Lori (HUMULIN R) 00 :00 1 dose, Medic al injection 7 Sat08/18/19 Br anch Units at 2330, Routine furosemide 2019-0 2020- No 40mg 40 mg, Univ ers (LASIX) 08-19- Slow IV ity of injection 04:00: 15:29 Push, Q8H, [place] 40 mg 00 :06 First dose Medical on Sat08/18/19 at 2200, Until Discontinu ed, Routine spironolact 2019-0 2020- No 50mg 50 mg, Uni vers one 08-19- Oral, BID, ity of (ALDACTONE) 04:00: 03:12 First dose [place] tablet 50 00 :55 on [facility] mg 08/18/19 at Branch 2200, Until Discontinu ed, Routine Sliding 2019- No Subcutaneo Uni vers Scale 08-1907 us, AC+HS, ity of Insulin-Reg 03:00: 03:12 First dose [place] ular + Fsbg 00 :55 on [facility] Med[facility] Testing 08/18/19 at Branch 2100, Until Discontinu ed, Routine insulin 2019- No 20U 20 Units, [facility] [place] [facility] ers glargine 08-19 Subcutaneo ity of (LANTUS 02:00: 14:43 us, BID, [place] U-100) 00 :46 First dose Medical injection on [facility] Branch 20 Units 08/18/19 at 2000, Until Discontinu ed metoprolol 2019- No 50mg 50 mg, [facility] [place] [facility] ers succinate 08-19 Oral, BID, ity of XL (TOPROL 02:00: 03:12 First dose [place] XL) tablet 00 :55 on [facility] Medical 50 mg 08/18/19 at Branch 2000, Until Discontinu ed nicotine 2019- No 1{patch 1 Patch, U nivers (NICODERM) 08-19 } Topical, ity of 21 mg/24 hr 00:45: 03:12 Administer [place] patch 1 00 :55 over 24 Medical Patch Hours, [place] Q24H, First dose on Sat08/18/19 at 1845, Until Discontinu ed, Routine furosemide 2019- No 40mg 40 mg, IV U nivers (LASIX) 08-18 02 Push, ity of injection 23:30: 22:38 ONCE, 1 [place] 40 mg 00 :00 dose, [facility] 08/18/19 at Branch 1730, KATHY acetaminoph Yes 650mg 650 mg, Un michael en 04 Oral, ity of (TYLENOL) 22:56: Q6HPRN, [place] tablet 650 29 Starting Medic al mg [facility] 08/18/19 Branch at 1656, Until Discontinu ed, Routine, Pain (scale 1-3) acetaminoph 2018-07 2020- No [id number] 1{tbl} Take 1 Univers en-codeine 009 08-18 tablet by ity of (TYLENOL-CO 00:00: 00:00 mouth [place] DEINE #3) 00 :00 every 4 Medical 300-30 mg (four) Branch tablet hours as needed for Pain (scale 4-6) or Pain (scale 7-10). ferrous 2017-0 Yes [id number] 325mg Take 1 Un michael sulfate 8-31 tablet by ity of (FERROUSUL) 00:00: mouth 3 [place] as 325 mg (65 00 (three) Medica l mg iron) times Branch tablet daily with meals. ferrous 0 Yes [id number] 325mg Take 1 Un michael sulfate 8-31 tablet by ity of (FERROUSUL) 00:00: mouth 3 [place] 325 mg (65 00 (three) Medica l mg iron) times Branch tablet daily with meals. ferrous 0 Yes [id number] 325mg Take 1 Un michael sulfate 8-31 tablet by ity of (FERROUSUL) 00:00: mouth 3 [place] 325 mg (65 00 (three) Medica l mg iron) times Branch tablet daily with meals. ferrous Yes [id number] 325mg Take 1 Un michael sulfate 8-31 tablet by ity of (FERROUSUL) 00:00: mouth 3 [place] 325 mg (65 00 (three) Medica l mg iron) times Branch tablet daily with meals. ferrous 0 Yes [id number] 325mg Take 1 Un michael sulfate 8-31 tablet by ity of (FERROUSUL) 00:00: mouth 3 [place] 325 mg (65 00 (three) Medica l mg iron) times Branch tablet daily with meals. ferrous 0 Yes [id number] 325mg Take 1 Un michael sulfate 8-31 tablet by ity of (FERROUSUL) 00:00: mouth 3 [place] 325 mg (65 00 (three) Medica l mg iron) times Branch tablet daily with meals. ferrous 2018-0 Yes [id number] 325mg Take 1 Un michael sulfate 8-31 tablet by ity of (FERROUSUL) 00:00: mouth 3 [place] 325 mg (65 00 (three) Medica l mg iron) times Branch tablet daily with meals. ferrous 2017-0 Yes [id number] 325mg Take 1 Un michael sulfate 8-31 tablet by ity of (FERROUSUL) 00:00: mouth 3 [place] 325 mg (65 00 (three) Medica l mg iron) times Branch tablet daily with meals. ferrous 2018-0 Yes [id number] 325mg Take 1 Un michael sulfate 8-31 tablet by ity of (FERROUSUL) 00:00: mouth 3 [place] 325 mg (65 00 (three) Medica l mg iron) times Branch tablet daily with meals. ferrous 2018-0 Yes [id number] 325mg Take 1 Un michael sulfate 8-31 tablet by ity of (FERROUSUL) 00:00: mouth 3 [place] 325 mg (65 00 (three) Medica l mg iron) times Branch tablet daily with meals. ferrous 2018-0 Yes [id number] 325mg Take 1 Un michael sulfate 8-31 tablet by ity of (FERROUSUL) 00:00: mouth 3 [place] 325 mg (65 00 (three) Medica l mg iron) times Branch tablet daily with meals. ferrous 2017- 2020- No [id number] 325mg Take 1 U nivers sulfate 8-31 03-19 tablet by ity of (FERROUSUL) 00:00: 00:00 mouth 3 [place] 325 mg (65 00 :00 (three) Medica l mg iron) times Branch tablet daily with meals. aspirin 81 2018-0 Yes 81mg Take 1 Unive rs mg chewable 4-06 tablet by ity of tablet 00:00: mouth [place] 00 daily. Medical Branch aspirin 81 2018-0 Yes 81mg Take 1 Unive rs mg chewable 4-06 tablet by ity of tablet 00:00: mouth [place] 00 daily. Medical Branch aspirin 81 2018-0 Yes 81mg Take 1 Unive rs mg chewable 4-06 tablet by ity of tablet 00:00: mouth [place] 00 daily. Medical Branch aspirin 81 2018-0 Yes 81mg Take 1 Unive rs mg chewable 4-06 tablet by ity of tablet 00:00: mouth [place] 00 daily. Medical Branch aspirin 81 2018-0 Yes 81mg Take 1 Unive rs mg chewable 4-06 tablet by ity of tablet 00:00: mouth [place] 00 daily. Medical Branch aspirin 81 2018-0 Yes 81mg Take 1 Unive rs mg chewable 4-06 tablet by ity of tablet 00:00: mouth [place] 00 daily. [facility] Branch aspirin 81 2018-0 Yes 81mg Take 1 Unive rs mg chewable 4-06 tablet by ity of tablet 00:00: mouth [place] 00 daily. Medical Branch aspirin 81 2018-0 Yes 81mg Take 1 Unive rs mg chewable 4-06 tablet by ity of tablet 00:00: mouth [place] 00 daily. Medical Branch aspirin 81 2018-0 Yes 81mg Take 1 Unive rs mg chewable 4-06 tablet by ity of tablet 00:00: mouth [place] 00 daily. Medical Branch aspirin 81 2018-0 Yes 81mg Take 1 Unive rs mg chewable 4-06 tablet by ity of tablet 00:00: mouth [place] 00 daily. Medical Branch aspirin 81 2018-0 Yes 81mg Take 1 Unive rs mg chewable 4-06 tablet by ity of tablet 00:00: mouth [place] 00 daily. Medical Branch aspirin 81 2018-0 Yes 81mg Take 1 Unive rs mg chewable 4-06 tablet by ity of tablet 00:00: mouth [place] 00 daily. Medical Branch aspirin 81 2018-0 Yes 81mg Take 1 Unive rs mg chewable 4-06 tablet by ity of tablet 00:00: mouth [place] 00 daily. Medical Branch aspirin 81 2018-0 Yes 81mg Take 1 Unive rs mg chewable 4-06 tablet by ity of tablet 00:00: mouth [place] 00 daily. Medical Branch aspirin 81 2018-0 Yes 81mg Take 1 Unive rs mg chewable 4-06 tablet by ity of tablet 00:00: mouth [place] 00 daily. Medical Branch aspirin 81 2018-0 Yes 81mg Take 1 Unive rs mg chewable 4-06 tablet by ity of tablet 00:00: mouth [place] 00 daily. Medical Branch aspirin 81 2018-0 Yes 81mg Take 1 Unive rs mg chewable 4-06 tablet by ity of tablet 00:00: mouth [place] 00 daily. Medical Branch aspirin 81 2018-0 Yes 81mg Take 1 Unive rs mg chewable 4-06 tablet by ity of tablet 00:00: mouth [place] 00 daily. Medical Branch aspirin 81 2018-0 Yes 81mg Take 1 Unive rs mg chewable 4-06 tablet by ity of tablet 00:00: mouth [place] 00 daily. Medical Branch aspirin 81 2018-0 Yes 81mg Take 1 Unive rs mg chewable 4-06 tablet by ity of tablet 00:00: mouth [place] 00 daily. Medical Branch aspirin 81 2018-0 Yes 81mg Take 1 Unive rs mg chewable 4-06 tablet by ity of tablet 00:00: mouth [place] 00 daily. Medical Branch aspirin 81 2018-0 Yes 81mg Take 1 Unive rs mg chewable 4-06 tablet by ity of tablet 00:00: mouth [place] 00 daily. Medical Branch aspirin 81 2018-0 Yes 81mg Take 1 Unive rs mg chewable 4-06 tablet by ity of tablet 00:00: mouth [place] 00 daily. Medical Branch aspirin 81 2018-0 Yes 81mg Take 1 Unive rs mg chewable 4-06 tablet by ity of tablet 00:00: mouth [place] 00 daily. Medical Branch aspirin 81 2018-0 Yes 81mg Take 1 Unive rs mg chewable 4-06 tablet by ity of tablet 00:00: mouth [place] 00 daily. Medical Branch aspirin 81 2018-0 Yes 81mg Take 1 Unive rs mg chewable 4-06 tablet by ity of tablet 00:00: mouth [place] 00 daily. Medical Branch aspirin 81 2018-0 Yes 81mg Take 1 Unive rs mg chewable 4-06 tablet by ity of tablet 00:00: mouth [place] 00 daily. Medical Branch aspirin 81 2018-0 Yes 81mg Take 1 Unive rs mg chewable 4-06 tablet by ity of tablet 00:00: mouth [place] 00 daily. Medical Branch aspirin 81 2018-0 Yes 81mg Take 1 Unive rs mg chewable 4-06 tablet by ity of tablet 00:00: mouth [place] 00 daily. Medical Branch aspirin 81 2018-0 Yes 81mg Take 1 Unive rs mg chewable 4-06 tablet by ity of tablet 00:00: mouth [place] 00 daily. Medical Branch aspirin 81 2018-0 Yes 81mg Take 1 Unive rs mg chewable 4-06 tablet by ity of tablet 00:00: mouth [place] 00 daily. Medical Branch aspirin 81 2018-0 Yes 81mg Take 1 Unive rs mg chewable 4-06 tablet by ity of tablet 00:00: mouth [place] 00 daily. Medical Branch aspirin 81 2018-0 Yes 81mg Take 1 Unive rs mg chewable 4-06 tablet by ity of tablet 00:00: mouth [place] 00 daily. Medical Branch aspirin 81 2018-0 Yes 81mg Take 1 Unive rs mg chewable 4-06 tablet by ity of tablet 00:00: mouth [place] 00 daily. Medical Branch aspirin 81 2018-0 Yes 81mg Take 1 Unive rs mg chewable 4-06 tablet by ity of tablet 00:00: mouth [place] 00 daily. Medical Branch aspirin 81 2018-0 Yes 81mg Take 1 Unive rs mg chewable 4-06 tablet by ity of tablet 00:00: mouth [place] 00 daily. Medical Branch aspirin 81 2018-0 Yes 81mg Take 1 Unive rs mg chewable 4-06 tablet by ity of tablet 00:00: mouth [place] 00 daily. Medical Branch aspirin 81 2018-0 Yes 81mg Take 1 Unive rs mg chewable 4-06 tablet by ity of tablet 00:00: mouth [place] 00 daily. Medical Branch aspirin 81 2018-0 Yes 81mg Take 1 Unive rs mg chewable 4-06 tablet by ity of tablet 00:00: mouth [place] 00 daily. Medical Branch aspirin 81 2018-0 Yes 81mg Take 1 Unive rs mg chewable 4-06 tablet by ity of tablet 00:00: mouth [place] 00 daily. Medical Branch aspirin 81 2018-0 Yes 81mg Take 1 Unive rs mg chewable 4-06 tablet by ity of tablet 00:00: mouth [place] 00 daily. Medical Branch aspirin 81 2018-0 Yes 81mg Take 1 Unive rs mg chewable 4-06 tablet by ity of tablet 00:00: mouth [place] 00 daily. Medical Branch aspirin 81 2018-0 Yes 81mg Take 1 Unive rs mg chewable 4-06 tablet by ity of tablet 00:00: mouth [place] 00 daily. Medical Branch aspirin 81 2018-0 Yes 81mg Take 1 Unive rs mg chewable 4-06 tablet by ity of tablet 00:00: mouth [place] 00 daily. Medical Branch aspirin 81 2018-0 Yes 81mg Take 1 Unive rs mg chewable 4-06 tablet by ity of tablet 00:00: mouth [place] 00 daily. Medical Branch aspirin 81 2018-0 Yes 81mg Take 1 Unive rs mg chewable 4-06 tablet by ity of tablet 00:00: mouth [place] 00 daily. Medical Branch aspirin 81 2018-0 Yes 81mg Take 1 Unive rs mg chewable 4-06 tablet by ity of tablet 00:00: mouth [place] 00 daily. Medical Branch aspirin 81 2018-0 Yes 81mg Take 1 Unive rs mg chewable 4-06 tablet by ity of tablet 00:00: mouth [place] 00 daily. Medical Branch aspirin 81 2018-0 Yes 81mg Take 1 Unive rs mg chewable 4-06 tablet by ity of tablet 00:00: mouth [place] 00 daily. Medical Branch aspirin 81 2018-0 Yes 81mg Take 1 Unive rs mg chewable 4-06 tablet by ity of tablet 00:00: mouth [place] 00 daily. Medical Branch aspirin 81 2018-0 Yes 81mg Take 1 Unive rs mg chewable 4-06 tablet by ity of tablet 00:00: mouth [place] 00 daily. Medical Branch aspirin 81 2018-0 2021- No 81mg Take 1 Univ ers mg chewable 4-06 04-27 tablet by it y of tablet 00:00: 00:00 mouth [place] 00 :00 daily. Medical Branch aspirin 81 2018-0 2021- No 81mg Take 1 Univ ers mg chewable 4-06 04-27 tablet by it y of tablet 00:00: 00:00 mouth [place] 00 :00 daily. Medical Branch nitroglycer 2018-[address] 1 Uni vers in 0.4 mg 4-05 tablet ity of sublingual 00:00: under the [place] tablet 00 tongue Medical every 5 Branch (five) minutes as needed for Chest pain. nitroglycer 2018-[address] 1 Uni vers in 0.4 mg 4-05 tablet ity of sublingual 00:00: under the [place] tablet 00 tongue Medical every 5 Branch (five) minutes as needed for Chest pain. nitroglycer 2018-[address] 1 Uni vers in 0.4 mg 4-05 tablet ity of sublingual 00:00: under the [place] tablet 00 tongue Medical every 5 Branch (five) minutes as needed for Chest pain. nitroglycer 2018-[address] 1 Uni vers in 0.4 mg 4-05 tablet ity of sublingual 00:00: under the [place] tablet 00 tongue Medical every 5 Branch (five) minutes as needed for Chest pain. nitroglycer 2018-[address] 1 Uni vers in 0.4 mg 4-05 tablet ity of sublingual 00:00: under the [place] tablet 00 tongue Medical every 5 Branch (five) minutes as needed for Chest pain. nitroglycer 2018-[address] 1 Uni vers in 0.4 mg 4-05 tablet ity of sublingual 00:00: under the [place] tablet 00 tongue Medical every 5 Branch (five) minutes as needed for Chest pain. nitroglycer 2018-[address] 1 Uni vers in 0.4 mg 4-05 tablet ity of sublingual 00:00: under the [place] tablet 00 tongue Medical every 5 Branch (five) minutes as needed for Chest pain. nitroglycer 2018-[address] 1 Uni vers in 0.4 mg 4-05 tablet ity of sublingual 00:00: under the [place] tablet 00 tongue Medical every 5 Branch (five) minutes as needed for Chest pain. nitroglycer 2018-[address] 1 Uni vers in 0.4 mg 4-05 tablet ity of sublingual 00:00: under the [place] tablet 00 tongue Medical every 5 Branch (five) minutes as needed for Chest pain. nitroglycer 2018-[address] 1 Uni vers in 0.4 mg 4-05 tablet ity of sublingual 00:00: under the [place] tablet 00 tongue Medical every 5 Branch (five) minutes as needed for Chest pain. nitroglycer 2018-[address] 1 Uni vers in 0.4 mg 4-05 tablet ity of sublingual 00:00: under the [place] tablet 00 tongue Medical every 5 Branch (five) minutes as needed for Chest pain. nitroglycer 2018-[address] 1 Uni vers in 0.4 mg 4-05 tablet ity of sublingual 00:00: under the [place] tablet 00 tongue Medical every 5 Branch (five) minutes as needed for Chest pain. nitroglycer 2018-[address] 1 Uni vers in 0.4 mg 4-05 tablet ity of sublingual 00:00: under the [place] tablet 00 tongue Medical every 5 Branch (five) minutes as needed for Chest pain. nitroglycer 2018-[address] 1 Uni vers in 0.4 mg 4-05 tablet ity of sublingual 00:00: under the [place] tablet 00 tongue Medical every 5 Branch (five) minutes as needed for Chest pain. nitroglycer 2018-[address] 1 Uni vers in 0.4 mg 4-05 tablet ity of sublingual 00:00: under the [place] tablet 00 tongue Medical every 5 Branch (five) minutes as needed for Chest pain. nitroglycer 2018-[address] 1 Uni vers in 0.4 mg 4-05 tablet ity of sublingual 00:00: under the [place] tablet 00 tongue Medical every 5 Branch (five) minutes as needed for Chest pain. nitroglycer 2018-[address] 1 Uni vers in 0.4 mg 4-05 tablet ity of sublingual 00:00: under the [place] tablet 00 tongue Medical every 5 Branch (five) minutes as needed for Chest pain. nitroglycer 2018-[address] 1 Uni vers in 0.4 mg 4-05 tablet ity of sublingual 00:00: under the [place] tablet 00 tongue Medical every 5 Branch (five) minutes as needed for Chest pain. nitroglycer 2018-[address] 1 Uni vers in 0.4 mg 4-05 tablet ity of sublingual 00:00: under the [place] tablet 00 tongue Medical every 5 Branch (five) minutes as needed for Chest pain. nitroglycer 2018-[address] 1 Uni vers in 0.4 mg 4-05 tablet ity of sublingual 00:00: under the [place] tablet 00 tongue Medical every 5 Branch (five) minutes as needed for Chest pain. nitroglycer 2018-[address] 1 Uni vers in 0.4 mg 4-05 tablet ity of sublingual 00:00: under the [place] tablet 00 tongue Medical every 5 Branch (five) minutes as needed for Chest pain. nitroglycer 2018-[address] 1 Uni vers in 0.4 mg 4-05 tablet ity of sublingual 00:00: under the [place] tablet 00 tongue Medical every 5 Branch (five) minutes as needed for Chest pain. nitroglycer 2018-[address] 1 Uni vers in 0.4 mg 4-05 tablet ity of sublingual 00:00: under the [place] tablet 00 tongue Medical every 5 Branch (five) minutes as needed for Chest pain. nitroglycer 2018-[address] 1 Uni vers in 0.4 mg 4-05 tablet ity of sublingual 00:00: under the [place] tablet 00 tongue Medical every 5 Branch (five) minutes as needed for Chest pain. nitroglycer 2018-[address] 1 Uni vers in 0.4 mg 4-05 tablet ity of sublingual 00:00: under the [place] tablet 00 tongue Medical every 5 Branch (five) minutes as needed for Chest pain. nitroglycer 2018-[address] 1 Uni vers in 0.4 mg 4-05 tablet ity of sublingual 00:00: under the [place] tablet 00 tongue Medical every 5 Branch (five) minutes as needed for Chest pain. nitroglycer 2018-[address] 1 Uni vers in 0.4 mg 4-05 tablet ity of sublingual 00:00: under the [place] tablet 00 tongue Medical every 5 Branch (five) minutes as needed for Chest pain. nitroglycer 2018-[address] 1 Uni vers in 0.4 mg 4-05 tablet ity of sublingual 00:00: under the [place] tablet 00 tongue Medical every 5 Branch (five) minutes as needed for Chest pain. nitroglycer 2018-[address] 1 Uni vers in 0.4 mg 4-05 tablet ity of sublingual 00:00: under the [place] tablet 00 tongue Medical every 5 Branch (five) minutes as needed for Chest pain. nitroglycer 2018-[address] 1 Uni vers in 0.4 mg 4-05 tablet ity of sublingual 00:00: under the [place] tablet 00 tongue Medical every 5 Branch (five) minutes as needed for Chest pain. nitroglycer 2018-[address] 1 Uni vers in 0.4 mg 4-05 tablet ity of sublingual 00:00: under the [place] tablet 00 tongue Medical every 5 Branch (five) minutes as needed for Chest pain. nitroglycer 2018-[address] 1 Uni vers in 0.4 mg 4-05 tablet ity of sublingual 00:00: under the [place] tablet 00 tongue Medical every 5 Branch (five) minutes as needed for Chest pain. nitroglycer 2018-[address] 1 Uni vers in 0.4 mg 4-05 tablet ity of sublingual 00:00: under the [place] tablet 00 tongue Medical every 5 Branch (five) minutes as needed for Chest pain. nitroglycer 2018-[address] 1 Uni vers in 0.4 mg 4-05 tablet ity of sublingual 00:00: under the [place] tablet 00 tongue Medical every 5 Branch (five) minutes as needed for Chest pain. nitroglycer 2018-[address] 1 Uni vers in 0.4 mg 4-05 tablet ity of sublingual 00:00: under the [place] tablet 00 tongue Medical every 5 Branch (five) minutes as needed for Chest pain. nitroglycer 2018-[address] 1 Uni vers in 0.4 mg 4-05 tablet ity of sublingual 00:00: under the [place] tablet 00 tongue Medical every 5 Branch (five) minutes as needed for Chest pain. nitroglycer 2018-[address] 1 Uni vers in 0.4 mg 4-05 tablet ity of sublingual 00:00: under the [place] tablet 00 tongue Medical every 5 Branch (five) minutes as needed for Chest pain. nitroglycer 2018-[address] 1 Uni vers in 0.4 mg 4-05 tablet ity of sublingual 00:00: under the [place] tablet 00 tongue Medical every 5 Branch (five) minutes as needed for Chest pain. nitroglycer 2018-[address] 1 Uni vers in 0.4 mg 4-05 tablet ity of sublingual 00:00: under the [place] tablet 00 tongue Medical every 5 Branch (five) minutes as needed for Chest pain. nitroglycer 2018-[address] 1 Uni vers in 0.4 mg 4-05 tablet ity of sublingual 00:00: under the [place] tablet 00 tongue Medical every 5 Branch (five) minutes as needed for Chest pain. nitroglycer 2018-[address] 1 Uni vers in 0.4 mg 4-05 tablet ity of sublingual 00:00: under the [place] tablet 00 tongue Medical every 5 Branch (five) minutes as needed for Chest pain. nitroglycer 2018-[address] 1 Uni vers in 0.4 mg 4-05 tablet ity of sublingual 00:00: under the [place] tablet 00 tongue Medical every 5 Branch (five) minutes as needed for Chest pain. nitroglycer 2018-[address] 1 Uni vers in 0.4 mg 4-05 tablet ity of sublingual 00:00: under the [place] tablet 00 tongue Medical every 5 Branch (five) minutes as needed for Chest pain. nitroglycer 2018-[address] 1 Uni vers in 0.4 mg 4-05 tablet ity of sublingual 00:00: under the [place] tablet 00 tongue Medical every 5 Branch (five) minutes as needed for Chest pain. nitroglycer 2018-[address] 1 Uni vers in 0.4 mg 4-05 tablet ity of sublingual 00:00: under the [place] tablet 00 tongue Medical every 5 Branch (five) minutes as needed for Chest pain. nitroglycer 2018-[address] 1 Uni vers in 0.4 mg 4-05 tablet ity of sublingual 00:00: under the [place] tablet 00 tongue Medical every 5 Branch (five) minutes as needed for Chest pain. nitroglycer 2018-[address] 1 Uni vers in 0.4 mg 4-05 tablet ity of sublingual 00:00: under the [place] tablet 00 tongue Medical every 5 Branch (five) minutes as needed for Chest pain. nitroglycer 2018-[address] 1 Uni vers in 0.4 mg 4-05 tablet ity of sublingual 00:00: under the [place] tablet 00 tongue Medical every 5 Branch (five) minutes as needed for Chest pain. nitroglycer 2018-[address] 1 Uni vers in 0.4 mg 4-05 tablet ity of sublingual 00:00: under the [place] tablet 00 tongue Medical every 5 Branch (five) minutes as needed for Chest pain. nitroglycer 2018-[address] 1 Uni vers in 0.4 mg 4-05 tablet ity of sublingual 00:00: under the [place] tablet 00 tongue Medical every 5 Branch (five) minutes as needed for Chest pain. nitroglycer 2018-0 2020- No .4mg [address] 1 Un michael in 0.4 mg 4-05 04-10 tablet ity of sublingual 00:00: 00:00 [place] the [place] tablet 00 :00 tongue Medical every 5 Branch (five) minutes as needed for Chest pain. insulin 2018-0 Yes 12U inject 12 Unive rs regular 3-14 Units ity of human 00:00: under the [place] (HUMULIN R 00 skin 2 Medical U-100) 100 (two) Branch unit/mL times injection daily before breakfast and dinner. insulin 2018-0 Yes 12U inject 12 Unive rs regular 3-14 Units ity of human 00:00: under the [place] (HUMULIN R 00 skin 2 Medical U-100) 100 (two) Branch unit/mL times injection daily before breakfast and dinner. insulin 2018-0 Yes 12U inject 12 Unive rs regular 3-14 Units ity of human 00:00: under the [place] (HUMULIN R 00 skin 2 Medical U-100) 100 (two) Branch unit/mL times injection daily before breakfast and dinner. insulin 2018-0 Yes 12U inject 12 Unive rs regular 3-14 Units ity of human 00:00: under the [place] (HUMULIN R 00 skin 2 Medical U-100) 100 (two) Branch unit/mL times injection daily before breakfast and dinner. insulin 2018-0 Yes 12U inject 12 Unive rs regular 3-14 Units ity of human 00:00: under the [place] (HUMULIN R 00 skin 2 Medical U-100) 100 (two) Branch unit/mL times injection daily before breakfast and dinner. insulin 2018-0 Yes 12U inject 12 Unive rs regular 3-14 Units ity of human 00:00: under the [place] (HUMULIN R 00 skin 2 Medical U-100) 100 (two) Branch unit/mL times injection daily before breakfast and dinner. insulin 2018-0 Yes 12U inject 12 Unive rs regular 3-14 Units ity of human 00:00: under the [place] (HUMULIN R 00 skin 2 Medical U-100) 100 (two) Branch unit/mL times injection daily before breakfast and dinner. insulin 2018-0 Yes 12U inject 12 Unive rs regular 3-14 Units ity of human 00:00: under the [place] (HUMULIN R 00 skin 2 Medical U-100) 100 (two) Branch unit/mL times injection daily before breakfast and dinner. insulin 2018-0 Yes 12U inject 12 Unive rs regular 3-14 Units ity of human 00:00: under the [place] (HUMULIN R 00 skin 2 Medical U-100) 100 (two) Branch unit/mL times injection daily before breakfast and dinner. insulin 2018-0 Yes 12U inject 12 Unive rs regular 3-14 Units ity of human 00:00: under the [place] (HUMULIN R 00 skin 2 Medical U-100) 100 (two) Branch unit/mL times injection daily before breakfast and dinner. insulin 2018-0 Yes 12U inject 12 Unive rs regular 3-14 Units ity of human 00:00: under the [place] (HUMULIN R 00 skin 2 Medical U-100) 100 (two) Branch unit/mL times injection daily before breakfast and dinner. insulin 2018-0 Yes 12U inject 12 Unive rs regular 3-14 Units ity of human 00:00: under the [place] (HUMULIN R 00 skin 2 Medical U-100) 100 (two) Branch unit/mL times injection daily before breakfast and dinner. insulin 2018-0 Yes 12U inject 12 Unive rs regular 3-14 Units ity of human 00:00: under the [place] (HUMULIN R 00 skin 2 Medical U-100) 100 (two) Branch unit/mL times injection daily before breakfast and dinner. insulin 2018-0 Yes 12U inject 12 Unive rs regular 3-14 Units ity of human 00:00: under the [place] (HUMULIN R 00 skin 2 Medical U-100) 100 (two) Branch unit/mL times injection daily before breakfast and dinner. insulin 2018-0 Yes 12U inject 12 Unive rs regular 3-14 Units ity of human 00:00: under the [place] (HUMULIN R 00 skin 2 Medical U-100) 100 (two) Branch unit/mL times injection daily before breakfast and dinner. insulin 2018-0 Yes 12U inject 12 Unive rs regular 3-14 Units ity of human 00:00: under the [place] (HUMULIN R 00 skin 2 Medical U-100) 100 (two) Branch unit/mL times injection daily before breakfast and dinner. insulin 2018-0 Yes 12U inject 12 Unive rs regular 3-14 Units ity of human 00:00: under the [place] (HUMULIN R 00 skin 2 Medical U-100) 100 (two) Branch unit/mL times injection daily before breakfast and dinner. insulin 2018-0 Yes 12U inject 12 Unive rs regular 3-14 Units ity of human 00:00: under the [place] (HUMULIN R 00 skin 2 Medical U-100) 100 (two) Branch unit/mL times injection daily before breakfast and dinner. insulin 2018-0 2020- No 12U inject 12 Univ ers regular 3-14 04-15 Units ity of human 00:00: 00:00 under the [place] (HUMULIN R 00 :00 skin 2 Medical U-100) 100 (two) Branch unit/mL times injection daily before breakfast and dinner. insulin 2018-0 2020- No Check Univers regular 3-12 09-06 Blood ity of human Soln 00:00: 00:00 Sugar [place] injection 00 :00 before Medical meals and Branch administer the following based on blood sugar:Bloo d glucose 160 - 190 give 1 units.Bloo [place] glucose 191 - 230 give 2 units.Bl[place] glucose 231 - 270 give 3 units.Bloo [place] glucose 271 -300 give 4units.If blood sugar >300, give 5 and repeat in 6 hours or before next meal if still above 300 Immunizations Ordered Filled Immunization Date Status Comments [facility] e Immunization Name Name TDAP (ADACEL) 2019-09-18 Completed University of VACCINE 00:00:00 [facility] TDAP (ADACEL) 2019-09-18 Completed University of VACCINE 00:00:00 [facility] TDAP (ADACEL) 2019-09-18 Completed University of VACCINE 00:00:00 [facility] TDAP (ADACEL) 2019-09-18 Completed University of VACCINE 00:00:00 [facility] TDAP (ADACEL) 2019-09-18 Completed University of VACCINE 00:00:00 [facility] TDAP (ADACEL) 2019-09-18 Completed University of VACCINE 00:00:00 [facility] TDAP (ADACEL) 2019-09-18 Completed University of VACCINE 00:00:00 [facility] TDAP (ADACEL) 2019-09-18 Completed University of VACCINE 00:00:00 [facility] TDAP (ADACEL) 2019-09-18 Completed University of VACCINE 00:00:00 [facility] TDAP (ADACEL) 2019-09-18 Completed University of VACCINE 00:00:00 [facility] TDAP (ADACEL) 2019-09-18 Completed University of VACCINE 00:00:00 [facility] TDAP (ADACEL) 2019-09-18 Completed University of VACCINE 00:00:00 [facility] TDAP (ADACEL) 2019-09-18 Completed University of VACCINE 00:00:00 [facility] Branch TDAP (ADACEL) 2019-09-18 Completed University of VACCINE 00:00:00 [facility] TDAP (ADACEL) 2019-09-18 Completed University of VACCINE 00:00:00 [facility] TDAP (ADACEL) 2019-09-18 Completed University of VACCINE 00:00:00 [facility] TDAP (ADACEL) 2019-09-18 Completed University of VACCINE 00:00:00 [place] [facility] TDAP (ADACEL) 2019-09-18 Completed University of VACCINE 00:00:00 [place] [facility] TDAP (ADACEL) 2019-09-18 Completed University of VACCINE 00:00:00 [place] [facility] TDAP (ADACEL) 2019-09-18 Completed University of VACCINE 00:00:00 [place] [facility] TDAP (ADACEL) 2019-09-18 Completed University of VACCINE 00:00:00 [place] [facility] TDAP (ADACEL) 2019-09-18 Completed University of VACCINE 00:00:00 [place] [facility] TDAP (ADACEL) 2019-09-18 Completed University of VACCINE 00:00:00 [place] [facility] TDAP (ADACEL) 2019-09-18 Completed University of VACCINE 00:00:00 [place] [facility] TDAP (ADACEL) 2019-09-18 Completed University of VACCINE 00:00:00 [facility] Branch TDAP (ADACEL) 2019-09-18 Completed University of VACCINE 00:00:00 [facility] Branch TDAP (ADACEL) 2019-09-18 Completed University of VACCINE 00:00:00 [place] [facility] TDAP (ADACEL) 2019-09-18 Completed University of VACCINE 00:00:00 [place] [facility] TDAP (ADACEL) 2019-09-18 Completed University of VACCINE 00:00:00 [place] [facility] TDAP (ADACEL) 2019-09-18 Completed University of VACCINE 00:00:00 [place] [facility] TDAP (ADACEL) 2019-09-18 Completed University of VACCINE 00:00:00 [place] [facility] TDAP (ADACEL) 2019-09-18 Completed University of VACCINE 00:00:00 [place] [facility] TDAP (ADACEL) 2019-09-18 Completed University of VACCINE 00:00:00 [place] [facility] TDAP (ADACEL) 2019-09-18 Completed University of VACCINE 00:00:00 [place] [facility] TDAP (ADACEL) 2019-09-18 Completed University of VACCINE 00:00:00 [place] [facility] TDAP (ADACEL) 2019-09-18 Completed University of VACCINE 00:00:00 [place] [facility] TDAP (ADACEL) 2019-09-18 Completed University of VACCINE 00:00:00 [place] [facility] TDAP (ADACEL) 2019-09-18 Completed University of VACCINE 00:00:00 [place] [facility] TDAP (ADACEL) 2019-09-18 Completed University of VACCINE 00:00:00 [facility] TDAP (ADACEL) 2019-09-18 Completed University of VACCINE 00:00:00 [facility] TDAP (ADACEL) 2019-09-18 Completed University of VACCINE 00:00:00 [facility] TDAP (ADACEL) 2019-09-18 Completed University of VACCINE 00:00:00 [facility] TDAP (ADACEL) 2019-09-18 Completed University of VACCINE 00:00:00 [facility] TDAP (ADACEL) 2019-09-18 Completed University of VACCINE 00:00:00 [facility] TDAP (ADACEL) 2019-09-18 Completed University of VACCINE 00:00:00 [facility] TDAP (ADACEL) 2019-09-18 Completed University of VACCINE 00:00:00 [facility] TDAP (ADACEL) 2019-09-18 Completed University of VACCINE 00:00:00 [facility] TDAP (ADACEL) 2019-09-18 Completed University of VACCINE 00:00:00 [facility] TDAP (ADACEL) 2019-09-18 Completed University of VACCINE 00:00:00 [facility] TDAP (ADACEL) 2019-09-18 Completed University of VACCINE 00:00:00 [facility] TDAP (ADACEL) 2019-09-18 Completed University of VACCINE 00:00:00 [facility] TDAP (ADACEL) 2019-09-18 Completed University of VACCINE 00:00:00 [facility] TDAP (ADACEL) 2019-09-18 Completed University of VACCINE 00:00:00 [facility] TDAP (ADACEL) 2019-09-18 Completed University of VACCINE 00:00:00 [facility] TDAP (ADACEL) 2019-09-18 Completed University of VACCINE 00:00:00 [facility] TDAP (ADACEL) 2019-09-18 Completed University of VACCINE 00:00:00 [facility] TDAP (ADACEL) 2019-09-18 Completed University of VACCINE 00:00:00 [facility] TDAP (ADACEL) 2019-09-18 Completed University of VACCINE 00:00:00 [facility] TDAP (ADACEL) 2019-09-18 Completed University of VACCINE 00:00:00 [facility] Pneumococcal 2017-09-23 Completed University o f Polysaccharide, 00:00:00 [place] [facility] ical PPSV23 (PNEUMOVAX) Branch Pneumococcal 2017-09-23 Completed University o f Polysaccharide, 00:00:00 [place] [facility] ical PPSV23 (PNEUMOVAX) Branch Pneumococcal 2017-09-23 Completed University o f Polysaccharide, 00:00:00 [place] [facility] ical PPSV23 (PNEUMOVAX) Branch Pneumococcal 2017-09-23 Completed University o f Polysaccharide, 00:00:00 [place] [facility] ical PPSV23 (PNEUMOVAX) Branch Pneumococcal 2017-09-23 Completed University o f Polysaccharide, 00:00:00 [place] [facility] ical PPSV23 (PNEUMOVAX) Branch Pneumococcal 2017-09-23 Completed University o f Polysaccharide, 00:00:00 [place] [facility] ical PPSV23 (PNEUMOVAX) Branch Pneumococcal 2017-09-23 Completed University o f Polysaccharide, 00:00:00 [place] [facility] ical PPSV23 (PNEUMOVAX) Branch Pneumococcal 2017-09-23 Completed University o f Polysaccharide, 00:00:00 [place] [facility] ical PPSV23 (PNEUMOVAX) Branch Pneumococcal 2017-09-23 Completed University o f Polysaccharide, 00:00:00 [place] [facility] ical PPSV23 (PNEUMOVAX) Branch Pneumococcal 2017-09-23 Completed University o f Polysaccharide, 00:00:00 [place] [facility] ical PPSV23 (PNEUMOVAX) Branch Pneumococcal 2017-09-23 Completed University o f Polysaccharide, 00:00:00 [place] [facility] ical PPSV23 (PNEUMOVAX) Branch Pneumococcal 2017-09-23 Completed University o f Polysaccharide, 00:00:00 [place] [facility] ical PPSV23 (PNEUMOVAX) Branch Pneumococcal 2017-09-23 Completed University o f Polysaccharide, 00:00:00 [place] [facility] ical PPSV23 (PNEUMOVAX) Branch Pneumococcal 2017-09-23 Completed University o f Polysaccharide, 00:00:00 [place] [facility] ical PPSV23 (PNEUMOVAX) Branch Pneumococcal 2017-09-23 Completed University o f Polysaccharide, 00:00:00 [place] [facility] ical PPSV23 (PNEUMOVAX) Branch Pneumococcal 2017-09-23 Completed University o f Polysaccharide, 00:00:00 [place] [facility] ical PPSV23 (PNEUMOVAX) Branch Pneumococcal 2017-09-23 Completed University o f Polysaccharide, 00:00:00 [place] [facility] ical PPSV23 (PNEUMOVAX) Branch Pneumococcal 2017-09-23 Completed University o f Polysaccharide, 00:00:00 [place] [facility] ical PPSV23 (PNEUMOVAX) Branch Pneumococcal 2017-09-23 Completed University o f Polysaccharide, 00:00:00 [place] [facility] ical PPSV23 (PNEUMOVAX) Branch Pneumococcal 2017-09-23 Completed University o f Polysaccharide, 00:00:00 [place] [facility] ical PPSV23 (PNEUMOVAX) Branch Pneumococcal 2017-09-23 Completed University o f Polysaccharide, 00:00:00 [place] [facility] ical PPSV23 (PNEUMOVAX) Branch Pneumococcal 2017-09-23 Completed University o f Polysaccharide, 00:00:00 [place] [facility] ical PPSV23 (PNEUMOVAX) Branch Pneumococcal 2017-09-23 Completed University o f Polysaccharide, 00:00:00 [place] [facility] ical PPSV23 (PNEUMOVAX) Branch Pneumococcal 2017-09-23 Completed University o f Polysaccharide, 00:00:00 [place] [facility] ical PPSV23 (PNEUMOVAX) Branch Pneumococcal 2017-09-23 Completed University o f Polysaccharide, 00:00:00 [place] [facility] ical PPSV23 (PNEUMOVAX) Branch Pneumococcal 2017-09-23 Completed University o f Polysaccharide, 00:00:00 [place] [facility] ical PPSV23 (PNEUMOVAX) Branch Pneumococcal 2017-09-23 Completed University o f Polysaccharide, 00:00:00 [place] [facility] ical PPSV23 (PNEUMOVAX) Branch Pneumococcal 2017-09-23 Completed University o f Polysaccharide, 00:00:00 [place] [facility] ical PPSV23 (PNEUMOVAX) Branch Pneumococcal 2017-09-23 Completed University o f Polysaccharide, 00:00:00 [place] [facility] ical PPSV23 (PNEUMOVAX) Branch Pneumococcal 2017-09-23 Completed University o f Polysaccharide, 00:00:00 [place] [facility] ical PPSV23 (PNEUMOVAX) Branch Pneumococcal 2017-09-23 Completed University o f Polysaccharide, 00:00:00 [place] [facility] ical PPSV23 (PNEUMOVAX) Branch Pneumococcal 2017-09-23 Completed University o f Polysaccharide, 00:00:00 [place] [facility] ical PPSV23 (PNEUMOVAX) Branch Pneumococcal 2017-09-23 Completed University o f Polysaccharide, 00:00:00 [place] [facility] ical PPSV23 (PNEUMOVAX) Branch Pneumococcal 2017-09-23 Completed University o f Polysaccharide, 00:00:00 [place] [facility] ical PPSV23 (PNEUMOVAX) Branch Pneumococcal 2017-09-23 Completed University o f Polysaccharide, 00:00:00 [place] [facility] ical PPSV23 (PNEUMOVAX) Branch Pneumococcal 2017-09-23 Completed University o f Polysaccharide, 00:00:00 [place] [facility] ical PPSV23 (PNEUMOVAX) Branch Pneumococcal 2017-09-23 Completed University o f Polysaccharide, 00:00:00 [place] [facility] ical PPSV23 (PNEUMOVAX) Branch Pneumococcal 2017-09-23 Completed University o f Polysaccharide, 00:00:00 [place] [facility] ical PPSV23 (PNEUMOVAX) Branch Pneumococcal 2017-09-23 Completed University o f Polysaccharide, 00:00:00 [place] [facility] ical PPSV23 (PNEUMOVAX) Branch Pneumococcal 2017-09-23 Completed University o f Polysaccharide, 00:00:00 [place] [facility] ical PPSV23 (PNEUMOVAX) Branch Pneumococcal 2017-09-23 Completed University o f Polysaccharide, 00:00:00 [place] [facility] ical PPSV23 (PNEUMOVAX) Branch Pneumococcal 2017-09-23 Completed University o f Polysaccharide, 00:00:00 [place] [facility] ical PPSV23 (PNEUMOVAX) Branch Pneumococcal 2017-09-23 Completed University o f Polysaccharide, 00:00:00 [place] [facility] ical PPSV23 (PNEUMOVAX) Branch Pneumococcal 2017-09-23 Completed University o f Polysaccharide, 00:00:00 [place] [facility] ical PPSV23 (PNEUMOVAX) Branch Pneumococcal 2017-09-23 Completed University o f Polysaccharide, 00:00:00 [place] [facility] ical PPSV23 (PNEUMOVAX) Branch Pneumococcal 2017-09-23 Completed University o f Polysaccharide, 00:00:00 [place] [facility] ical PPSV23 (PNEUMOVAX) Branch Pneumococcal 2017-09-23 Completed University o f Polysaccharide, 00:00:00 [place] [facility] ical PPSV23 (PNEUMOVAX) Branch Pneumococcal 2017-09-23 Completed University o f Polysaccharide, 00:00:00 [place] [facility] ical PPSV23 (PNEUMOVAX) Branch Pneumococcal 2017-09-23 Completed University o f Polysaccharide, 00:00:00 [place] [facility] ical PPSV23 (PNEUMOVAX) Branch Pneumococcal 2017-09-23 Completed University o f Polysaccharide, 00:00:00 [place] [facility] ical PPSV23 (PNEUMOVAX) Branch Pneumococcal 2017-09-23 Completed University o f Polysaccharide, 00:00:00 [place] [facility] ical PPSV23 (PNEUMOVAX) Branch Pneumococcal 2017-09-23 Completed University o f Polysaccharide, 00:00:00 [place] [facility] ical PPSV23 (PNEUMOVAX) Branch Pneumococcal 2017-09-23 Completed University o f Polysaccharide, 00:00:00 [place] [facility] ical PPSV23 (PNEUMOVAX) Branch Pneumococcal 2017-09-23 Completed University o f Polysaccharide, 00:00:00 [place] [facility] ical PPSV23 (PNEUMOVAX) Branch Pneumococcal 2017-09-23 Completed University o f Polysaccharide, 00:00:00 [place] [facility] ical PPSV23 (PNEUMOVAX) Branch Pneumococcal 2017-09-23 Completed University o f Polysaccharide, 00:00:00 [place] [facility] ical PPSV23 (PNEUMOVAX) Branch Pneumococcal 2017-09-23 Completed University o f Polysaccharide, 00:00:00 [place] [facility] ical PPSV23 (PNEUMOVAX) Branch Pneumococcal 2017-09-23 Completed University o f Polysaccharide, 00:00:00 [place] [facility] ical PPSV23 (PNEUMOVAX) Branch Pneumococcal 2017-09-23 Completed University o f Polysaccharide, 00:00:00 [place] [facility] ical PPSV23 (PNEUMOVAX) Branch Pneumococcal 2017-09-23 Completed University o f Polysaccharide, 00:00:00 [place] [facility] ical PPSV23 (PNEUMOVAX) Branch Pneumococcal 2017-09-23 Completed University o f Polysaccharide, 00:00:00 [place] [facility] ical PPSV23 (PNEUMOVAX) Branch Pneumococcal 2017-09-23 Completed University o f Polysaccharide, 00:00:00 [place] [facility] ical PPSV23 (PNEUMOVAX) Branch Pneumococcal 2017-09-23 Completed University o f Polysaccharide, 00:00:00 [place] [facility] ical PPSV23 (PNEUMOVAX) Branch Vital Signs Vital Name Observation Time Observation Value Comments Source Systolic blood 2020-11-09 144 mm[Hg] [facility] pressure 13:12:00 [facility] Diastolic blood 2020-11-09 58 mm[Hg] [place] [facility] pressure 13:12:00 [facility] Heart rate 2020-11-09 61 /min [facility] 13:12:00 [facility] Respiratory rate 2020-11-09 18 /min [facility] 13:12:00 [facility] Oxygen saturation 2020-11-09 100 /min [facility] in Arterial blood 13:12:00 [place] [facility] by Pulse oximetry Branch Body temperature 2020-11-09 36.89 [place] University of 09:00:00 [facility] Body height 2020-11-07 190.5 cm University of 19:10: [facility] Body weight 2020-11-07 72.576 kg University of 19:10: [facility] BMI 2020-11-07 20.00 kg/m2 University of 19:10:00 [facility] Systolic blood 2020-05-03 157 mm[Hg] University of pressure 21:02:00 [facility] Diastolic blood 2020-05-03 82 mm[Hg] University o f pressure 21:02:00 [facility] Heart rate 2020-05-03 59 /min University of 21:02:00 [facility] Respiratory rate 2020-05-03 18 /min University of 21:02:00 [facility] Oxygen saturation 2020-05-03 100 /min University of in Arterial blood 21:02:00 [facility] by Pulse oximetry [place] Body temperature 2020-05-03 37 [place] University of 18:42:00 [facility] Body height 2020-05-03 182.9 cm University of 18:42:00 [facility] Body weight 2020-05-03 72.576 kg University of 18:42:00 [facility] BMI 2020-05-03 21.70 kg/m2 University of 18:42:00 [facility] Systolic blood 2019-10-28 152 mm[Hg] University of pressure 12:52:00 [facility] Diastolic blood 2019-10-28 77 mm[Hg] University o f pressure 12:52:00 [facility] Heart rate 2019-10-28 69 /min University of 12:52:00 [facility] Body temperature 2019-10-28 36.78 [place] University of 12:52:00 [facility] Respiratory rate 2019-10-28 20 /min University of 12:52:00 [facility] Oxygen saturation 2019-10-28 97 /min University of in Arterial blood 12:52:00 [facility] lizzy by Pulse oximetry Branch Body height 2019-10-27 182.9 cm University of 06:06:00 [facility] Body weight 2019-10-27 74.98 kg University of 06:06:00 [facility] BMI 2019-10-27 22.42 kg/m2 University of 06:06:00 [facility] Systolic blood 2019-10-12 147 mm[Hg] University of pressure 18:07:00 [facility] Branch Diastolic blood 2019-10-12 73 mm[Hg] University o f pressure 18:07:00 [facility] Branch Heart rate 2019-10-12 80 /min University of 18:07:00 [facility] Branch Body temperature 2019-10-12 35.22 [place] University of 18:07:00 [facility] Branch Respiratory rate 2019-10-12 16 /min University of 18:07:00 [facility] Body weight 2019-10-12 75.751 kg University of 18:07:00 [facility] Branch BMI 2019-10-12 22.65 kg/m2 University of 18:07:00 [facility] Branch Oxygen saturation 2019-10-12 98 /min University of in Arterial blood 18:07:00 [facility] by Pulse oximetry Branch Systolic blood 2019-10-01 136 mm[Hg] University of pressure 21:37:00 [facility] Branch Diastolic blood 2019-10-01 59 mm[Hg] University o f pressure 21:37:00 [facility] Heart rate 2019-10-01 78 /min University of 21:37:00 [facility] Body temperature 2019-10-01 36.83 [place] University of 21:37:00 [facility] Respiratory rate 2019-10-01 18 /min University of 21:37:00 [facility] Oxygen saturation 2019-10-01 91 /min [facility] in Arterial blood 21:37:00 [facility] by Pulse oximetry Branch Body height 2019-09-30 182.9 cm University of 00:30:00 [facility] Body weight 2019-09-30 77.8 kg University of 00:30:00 [facility] Branch BMI 2019-09-30 23.26 kg/m2 University of 00:30:00 [facility] Branch Systolic blood 2019-09-28 142 mm[Hg] University of pressure 17:50:00 [facility] Branch Diastolic blood 2019-09-28 68 mm[Hg] University o f pressure 17:50:00 [facility] Branch Heart rate 2019-09-28 77 /min University of 17:50:00 [facility] Branch Body temperature 2019-09-28 36.89 [place] University of 17:50:00 [facility] Branch Respiratory rate 2019-09-28 16 /min University of 17:50:00 [facility] Body weight 2019-09-28 72.213 kg University of 17:50:00 [facility] BMI 2019-09-28 21.59 kg/m2 University of 17:50:00 [facility] Oxygen saturation 2019-09-28 99 /min University of in Arterial blood 17:50:00 [facility] by Pulse oximetry Branch Systolic blood 2019-09-21 132 mm[Hg] University of pressure 18:11:00 [facility] Diastolic blood 2019-09-21 70 mm[Hg] University o f pressure 18:11:00 [facility] Heart rate 2019-09-21 79 /min University of 18:11:00 [facility] Body temperature 2019-09-21 36.33 [place] University of 18:11:00 [facility] Respiratory rate 2019-09-21 16 /min University of 18:11:00 [facility] Body weight 2019-09-21 71.668 kg University of 18:11:00 [facility] BMI 2019-09-21 21.43 kg/m2 University of 18:11:00 [facility] Oxygen saturation 2019-09-21 97 /min University of in Arterial blood 18:11:00 [facility] by Pulse oximetry Branch Systolic blood 2019-09-19 162 mm[Hg] University of pressure 02:30:00 [facility] Diastolic blood 2019-09-19 76 mm[Hg] University o f pressure 02:30:00 [facility] Heart rate 2019-09-19 81 /min University of 02:30:00 [facility] Respiratory rate 2019-09-19 19 /min University of 02:30:00 [facility] Oxygen saturation 2019-09-19 96 /min University of in Arterial blood 02:30:00 [facility] by Pulse oximetry [facility] Body temperature 2019-09-19 37.28 Bernadine University of 00:05:00 [facility] Body height 2019-09-19 182.9 cm University of 00:05:00 [facility] Body weight 2019-09-19 73.483 kg University of 00:05:00 [facility] BMI 2019-09-19 21.97 kg/m2 University of 00:05:00 [facility] Systolic blood 2019-09-15 128 mm[Hg] University of pressure 18:00:00 [facility] Diastolic blood 2019-09-15 66 mm[Hg] University o f pressure 18:00:00 [facility] Heart rate 2019-09-15 77 /min University of 18:00:00 [facility] Body temperature 2019-09-15 36.94 Bernadine University of 18:00:00 [facility] Respiratory rate 2019-09-15 17 /min University of 18:00:00 [facility] Oxygen saturation 2019-09-15 99 /min University of in Arterial blood 18:00:00 [facility] by Pulse oximetry [place] Body weight 2019-09-12 80 kg University of 15:21:00 [facility] BMI 2019-09-12 23.92 kg/m2 University of 15:21:00 [facility] Systolic blood 2019-09-07 135 mm[Hg] University of pressure 18:00:00 [facility] Diastolic blood 2019-09-07 75 mm[Hg] University o f pressure 18:00:00 [facility] Heart rate 2019-09-07 70 /min University of 18:00:00 [facility] Respiratory rate 2019-09-07 23 /min University of 18:00:00 [facility] Oxygen saturation 2019-09-07 95 /min University of in Arterial blood 18:00:00 [facility] by Pulse oximetry [place] Body temperature 2019-09-07 36.83 Bernadine University of 14:00:00 [facility] Body height 2019-09-04 182.9 cm University of 06:00:00 [facility] Body weight 2019-09-04 73.2 kg University of 06:00:00 [facility] BMI 2019-09-04 21.89 kg/m2 University of 06:00:00 [facility] Systolic blood 2020-11-09 144 mm[Hg] University of pressure 13:12:00 [facility] Diastolic blood 2020-11-09 58 mm[Hg] University o f pressure 13:12:00 [facility] Heart rate 2020-11-09 61 /min University of 13:12:00 [facility] Respiratory rate 2020-11-09 18 /min University of 13:12:00 [facility] Oxygen saturation 2020-11-09 100 /min University of in Arterial blood 13:12:00 [facility] by Pulse oximetry [place] Body temperature 2020-11-09 36.89 Bernadine University of 09:00:00 [facility] Body height 2020-11-07 190.5 cm University of 19:10:00 [facility] Body weight 2020-11-07 72.576 kg University of 19:10:00 [facility] BMI 2020-11-07 20.00 kg/m2 [facility] 19:10:00 [facility] Heart rate 2020-11-06 69 /min [facility] 16:48:00 [facility] Respiratory rate 2020-11-06 18 /min [facility] 16:48:00 [facility] Oxygen saturation 2020-11-06 99 /min [facility] in Arterial blood 16:48:00 [facility] by Pulse oximetry [place] Systolic blood 2020-11-06 122 mm[Hg] [facility] pressure 16:38:00 [facility] Diastolic blood 2020-11-06 57 mm[Hg] University o f pressure 16:38:00 [facility] Body temperature 2020-11-06 37.17 Bernadine [facility] 16:38:00 [facility] Body weight 2020-11-03 73 kg [facility] 01:00:00 [facility] BMI 2020-11-03 20.12 kg/m2 [facility] 01:00:00 [facility] Body height 2020-10-22 190.5 cm [facility] 16:30:00 [facility] Systolic blood 2019-09-29 155 mm[Hg] Location: [facility] [[email or web address]]; [facility] 16:23:00 Position: [place] [facility] Diastolic blood 2019-09-29 68 mm[Hg] Location: [facility] 16:23:00 Position: [place] [facility] Body height 2019-09-29 72 [in_us] University 16:23:00 [place] [facility] Weight 2019-09-29 163 [lb_av] [facility] 16:23:00 [place] [facility] Body mass index 2019-09-29 22.11 kg/m2 [place] [facility] f (BMI) [Ratio] 16:23:00 [place] [facility] Body temperature 2019-09-29 97.9 [degF] Method: Oral [facility] 16:23:00 [place] [facility] Heart Rate 2019-09-29 75 /min [facility] 16:23:00 [place] [facility] Procedures Procedure Date / Time Performing Source Performed Clinician DME/SUPPLY JUSTIFICATION 2020-12-16 Doctor [facility] it of 05:01:00 Unassigned, No [facility] DNR 2020-11-16 Doctor [facility] 05:01:00 Unassigned, No [facility] POCT GLUCOSE (AUTOMATED) 2020-11-09 David Howell sity of 16:50:00 J [facility] POCT GLUCOSE (AUTOMATED) 2020-11-09 David Howell Univer sity of 16:50:00 J [facility] CBC WITHOUT DIFF 2020-11-09 [facility] of 10:56:00 [facility] BASIC METABOLIC PANEL (NA, K, CL, 2020-11-09 [facility] of CO2, GLUCOSE, BUN, CREATININE, CA) 10:56:00 [facility] MAGNESIUM 2020-11-09 [facility] of 10:56:00 [facility] MAGNESIUM 2020-11-09 [facility] of 10:56:00 [facility] BASIC METABOLIC PANEL (NA, K, CL, 2020-11-09 [facility] of CO2, GLUCOSE, BUN, CREATININE, CA) 10:56:00 [facility] CBC WITHOUT DIFF 2020-11-09 [facility] of 10:56:00 [facility] POCT GLUCOSE (AUTOMATED) 2020-11-09 David Howell Univer sity of 10:55:00 J [facility] POCT GLUCOSE (AUTOMATED) 2020-11-09 David Howell Univer sity of 10:55:00 J [facility] POCT GLUCOSE (AUTOMATED) 2020-11-09 David Howell sity of 05:23:00 J [facility] POCT GLUCOSE (AUTOMATED) 2020-11-09 David Howell Univer sity of 05:23:00 J [facility] POCT GLUCOSE (AUTOMATED) 2020-11-08 David Howell Univer sity of 23:22:00 J [facility] POCT GLUCOSE (AUTOMATED) 2020-11-08 David Howell Univer sity of 23:22:00 J [facility] POCT GLUCOSE (AUTOMATED) 2020-11-08 David Howell sity of 15:47:00 J [facility] POCT GLUCOSE (AUTOMATED) 2020-11-08 David Howell sity of 15:47:00 J [facility] POCT GLUCOSE (AUTOMATED) 2020-11-08 David Howell sity of 11:15:00 J [facility] POCT GLUCOSE (AUTOMATED) 2020-11-08 David Howell sity of 11:15:00 [facility] CBC WITH DIFF 2020-11-08 [facility] of 09:53:00 [facility] BASIC METABOLIC PANEL (NA, K, CL, 2020-11-08 [facility] of CO2, GLUCOSE, BUN, CREATININE, CA) 09:53:00 [facility] BASIC METABOLIC PANEL (NA, K, CL, 2020-11-08 [facility] of CO2, GLUCOSE, BUN, CREATININE, CA) 09:53:00 [facility] CBC WITH DIFF 2020-11-08 [facility] of 09:53:00 [facility] POCT GLUCOSE (AUTOMATED) 2020-11-08 David Howeller sity of 05:42:00 [facility] POCT GLUCOSE (AUTOMATED) 2020-11-08 David Howeller sity of 05:42:00 [facility] POCT GLUCOSE (AUTOMATED) 2020-11-07 David Howell Univer sity of 22:01:00 [facility] POCT GLUCOSE (AUTOMATED) 2020-11-07 David Howell Univer sity of 22:01:00 [facility] POCT GLUCOSE (AUTOMATED) 2020-11-07 David Howell sity of 13:13:00 [facility] POCT GLUCOSE (AUTOMATED) 2020-11-07 David Howeller sity of 13:13:00 [facility] POCT GLUCOSE (AUTOMATED) 2020-11-07 David Howell Univloi sity of 10:26:00 [facility] POCT GLUCOSE (AUTOMATED) 2020-11-07 David Howell Univer sity of 10:26:00 [facility] CBC WITHOUT DIFF 2020-11-07 [facility] of 09:49:00 [facility] BASIC METABOLIC PANEL (NA, K, CL, 2020-11-07 [facility] of CO2, GLUCOSE, BUN, CREATININE, CA) 09:49:00 [facility] MAGNESIUM 2020-11-07 [facility] of 09:49:00 [facility] MAGNESIUM 2020-11-07 [facility] 09:49[facility]00 [facility] BASIC METABOLIC PANEL (NA, K, CL, 2020-11-07 Trae [facility] University of CO2, GLUCOSE, BUN, CREATININE, CA) 09:49:00 [facility] CBC WITHOUT DIFF 2020-11-07 [facility] of 09:49:00 [facility] POCT GLUCOSE (AUTOMATED) 2020-11-07 David Howell Univer sity of 05:13:00 J [facility] POCT GLUCOSE (AUTOMATED) 2020-11-07 David Howell Univer sity of 05:13:00 J [facility] POCT GLUCOSE (AUTOMATED) 2020-11-06 David Howell Univer sity of 22:48:00 J [facility] POCT GLUCOSE (AUTOMATED) 2020-11-06 David Howell Univer sity of 22:48:00 J [facility] POCT GLUCOSE (AUTOMATED) 2020-11-06 David Howell Univer sity of 16:49:00 J [facility] POCT GLUCOSE (AUTOMATED) 2020-11-06 David Howell Univer sity of 16:49:00 J [facility] POCT GLUCOSE (AUTOMATED) 2020-11-06 David Howell Univloi sity of 11:11:00 J [facility] POCT GLUCOSE (AUTOMATED) 2020-11-06 David Hwoell sity of 11:11:00 [facility] CBC WITHOUT DIFF 2020-11-06 [facility] of 10:42:00 [facility] BASIC METABOLIC PANEL (NA, K, CL, 2020-11-06 [facility] of CO2, GLUCOSE, BUN, CREATININE, CA) 10:42:00 [facility] MAGNESIUM 2020-11-06 [facility] of 10:42:00 [facility] MAGNESIUM 2020-11-06 [facility] of 10:42:00 [facility] BASIC METABOLIC PANEL (NA, K, CL, 2020-11-06 [facility] University of CO2, GLUCOSE, BUN, CREATININE, CA) 10:42:00 [facility] CBC WITHOUT DIFF 2020-11-06 [facility] of 10:42:00 [facility] POCT GLUCOSE (AUTOMATED) 2020-11-06 David Howell sity of 05:07:00 J [facility] POCT GLUCOSE (AUTOMATED) 2020-11-06 David Howell sity of 05:07:00 J [facility] POCT GLUCOSE (AUTOMATED) 2020-11-05 David Howell sity of 18:40:00 J [facility] POCT GLUCOSE (AUTOMATED) 2020-11-05 David Howell sity of 18:40:00 J [facility] URINE CULTURE 2020-11-05 [facility] of 14:56:00 [facility] URINE CULTURE 2020-11-05 [facility] of 14:56:00 [facility] BLOOD CULTURE SCREEN 2020-11-05 [facility] of 14:54:00 [facility] BLOOD CULTURE SCREEN 2020-11-05 [facility] of 14:54:00 [facility] BLOOD CULTURE SCREEN 2020-11-05 [facility] of 14:44:00 [facility] BLOOD CULTURE SCREEN 2020-11-05 [facility] of 14:44:00 [facility] XR CHEST 1 VW 2020-11-05 [facility] of 12:03:32 [facility] XR CHEST 1 VW 2020-11-05 [facility] of 12:03:32 [facility] POCT GLUCOSE (AUTOMATED) 2020-11-05 David Howell sity of 11:13:00 [facility] POCT GLUCOSE (AUTOMATED) 2020-11-05 David Howell sity of 11:13:00 [facility] CBC WITHOUT DIFF 2020-11-05 [facility] of 09:31:00 [facility] BASIC METABOLIC PANEL (NA, K, CL, 2020-11-05 [facility] of CO2, GLUCOSE, BUN, CREATININE, CA) 09:31:00 [facility] MAGNESIUM 2020-11-05 [facility] of 09:31:00 [facility] MAGNESIUM 2020-11-05 [facility] of 09:31:00 [facility] BASIC METABOLIC PANEL (NA, K, CL, 2020-11-05 [facility] of CO2, GLUCOSE, BUN, CREATININE, CA) 09:31:00 [facility] CBC WITHOUT DIFF 2020-11-05 [facility] of 09:31:00 [facility] POCT GLUCOSE (AUTOMATED) 2020-11-05 David Howell Univloi sity of 04:54:00 J [facility] POCT GLUCOSE (AUTOMATED) 2020-11-05 David Howell Univer sity of 04:54:00 J [facility] POCT GLUCOSE (AUTOMATED) 2020-11-04 David Howell Univer sity of 22:58:00 J [facility] POCT GLUCOSE (AUTOMATED) 2020-11-04 David Howell sity of 22:58:00 J [facility] XR KUB 2020-11-04 [facility] of 21:35:45 [facility] XR KUB 2020-11-04 [facility] of 21:35:45 [facility] POCT GLUCOSE (AUTOMATED) 2020-11-04 David Howell Univer sity of 16:51:00 J [facility] POCT GLUCOSE (AUTOMATED) 2020-11-04 David Howeller sity of 16:51:00 J [facility] PROTHROMBIN TIME / INR 2020-11-04 [facility] y of 15:55:00 [facility] PROTHROMBIN TIME / INR 2020-11-04 [facility] y of 15:55:00 [facility] POCT GLUCOSE (AUTOMATED) 2020-11-04 David Howell Univer sity of 15:21:00 J [facility] POCT GLUCOSE (AUTOMATED) 2020-11-04 David Howell Univloi sity of 15:21:00 J [facility] CBC WITHOUT DIFF 2020-11-04 [facility] of 10:04:00 [facility] BASIC METABOLIC PANEL (NA, K, CL, 2020-11-04 [facility] of CO2, GLUCOSE, BUN, CREATININE, CA) 10:04:00 [facility] MAGNESIUM 2020-11-04 [facility] of 10:04:00 [facility] MAGNESIUM 2020-11-04 [facility] of 10:04:00 [facility] BASIC METABOLIC PANEL (NA, K, CL, 2020-11-04 [facility] of CO2, GLUCOSE, BUN, CREATININE, CA) 10:04:00 [facility] CBC WITHOUT DIFF 2020-11-04 [facility] of 10:04:00 [facility] POCT GLUCOSE (AUTOMATED) 2020-11-03 Antonio Villa Univers ity of 16:54:00 [facility] POCT GLUCOSE (AUTOMATED) 2020-11-03 Antonio Villa Univers ity of 16:54:00 [facility] BASIC METABOLIC PANEL (NA, K, CL, 2020-11-03 Ele Cao [facility] of CO2, GLUCOSE, BUN, CREATININE, CA) 12:53:00 [facility] MAGNESIUM 2020-11-03 [facility] 12:53[facility]00 [facility] MAGNESIUM 2020-11-03 [facility] 12:53:00 [facility] BASIC METABOLIC PANEL (NA, K, CL, 2020-11-03 Ele Cao [facility] of CO2, GLUCOSE, BUN, CREATININE, CA) 12:53:00 [facility] POCT GLUCOSE (AUTOMATED) 2020-11-03 Antonio Villa Univers ity of 12:47:00 [facility] POCT GLUCOSE (AUTOMATED) 2020-11-03 Antonio Villa Univers ity of 12:47:00 [facility] THYROID PEROXIDASE (TPO) AB 2020-11-03 Ele Cao Uni versity of 10:10:00 [facility] CBC WITH DIFF 2020-11-03 Ele Cao [facility] of 10:10:00 [facility] CBC WITH DIFF 2020-11-03 Ele Cao [facility] of 10:10:00 [facility] THYROID PEROXIDASE (TPO) AB 2020-11-03 Ele Cao Uni versity of 10:10:00 [facility] POCT GLUCOSE (AUTOMATED) 2020-11-03 Antonio Villa Univers ity of 10:09:00 [facility] POCT GLUCOSE (AUTOMATED) 2020-11-03 Antonio Villa Univers ity of 10:09:00 [facility] POCT GLUCOSE (AUTOMATED) 2020-11-03 Antonio Villa Univers ity of 04:38:00 [facility] POCT GLUCOSE (AUTOMATED) 2020-11-03 Antonio Villa Univers ity of 04:38:00 [facility] BASIC METABOLIC PANEL (NA, K, CL, 2020-11-03 Kiley [facility] of CO2, GLUCOSE, BUN, CREATININE, CA) 02:22:00 [facility] MAGNESIUM 2020-11-03 Kiley [facility] of 02:22:00 [facility] MAGNESIUM 2020-11-03 Kiley [facility] of 02:22:00 [facility] BASIC METABOLIC PANEL (NA, K, CL, 2020-11-03 Kiley [facility] of CO2, GLUCOSE, BUN, CREATININE, CA) 02:22:00 [facility] XR KUB 2020-11-02 Kiley [facility] of 22:56:53 [facility] XR KUB 2020-11-02 Kiley, [facility] of 22:56:53 [facility] VITAMIN B6, PLASMA 2020-11-02 [facility] of 22:49:00 [facility] VITAMIN B6, PLASMA 2020-11-02 [facility] of 22:49:00 [facility] POCT GLUCOSE (AUTOMATED) 2020-11-02 Antonio Villa Univers ity of 22:20:00 [facility] POCT GLUCOSE (AUTOMATED) 2020-11-02 Antonio Villa Univers ity of 22:20:00 [facility] MENINGITIS/ENCEPHALITIS PANEL BY 2020-11-02 Ele Cao [facility] of PCR 20:45:00 [facility] CSF/APPLIED MARINE PHYSICS PROFESSOR SHUNT CULTURE 2020-11-02 Ele Cao [facility] of 20:45:00 [facility] BODY FLUID MANUAL DIFF 2020-11-02 Ele Caoit y of 20:45:00 [facility] CEREBROSPINAL FLUID GLUCOSE 2020-11-02 Ele Cao [facility] ersity of 20:45:00 [facility] CEREBROSPINAL FLUID PROTEIN 2020-11-02 Ele Cao [facility] ersity of 20:45:00 [facility] CSF CULTURE 2020-11-02 Kiley, [facility] of 20:45:00 [facility] CEREBROSPINAL FLUID PROTEIN 2020-11-02 Kiley [facility] ersity of 20:45:00 [facility] CEREBROSPINAL FLUID GLUCOSE 2020-11-02 Kiley [facility] ersity of 20:45:00 [facility] BODY FLUID DIRECT COUNT 2020-11-02 [facility] 20:45:00 [facility] CSF/APPLIED MARINE PHYSICS PROFESSOR SHUNT CULTURE 2020-11-02 Kiley [facility] of 20:45:00 [facility] CSF CULTURE 2020-11-02 Kiley [facility] of 20:45:00 [facility] MENINGITIS/ENCEPHALITIS PANEL BY 2020-11-02 Kiley [facility] of PCR 20:45:00 [facility] BASIC METABOLIC PANEL (NA, K, CL, 2020-11-02 Kiley [facility] of CO2, GLUCOSE, BUN, CREATININE, CA) 17:39:00 [facility] MAGNESIUM 2020-11-02 Kiley [facility] of 17:39:00 [facility] MAGNESIUM 2020-11-02 Kiley [facility] of 17:39:00 [facility] BASIC METABOLIC PANEL (NA, K, CL, 2020-11-02 Kiley [facility] of CO2, GLUCOSE, BUN, CREATININE, CA) 17:39:00 [facility] POCT GLUCOSE (AUTOMATED) 2020-11-02 Antonio Villa Univers ity of 16:28:00 [facility] POCT GLUCOSE (AUTOMATED) 2020-11-02 Antonio Villa Univers ity of 16:28:00 [facility] POCT GLUCOSE (AUTOMATED) 2020-11-02 Antonio Villa P Univers ity of 12:37:00 [facility] POCT GLUCOSE (AUTOMATED) 2020-11-02 Antonio Villa Univers ity of 12:37:00 [facility] CBC WITH DIFF 2020-11-02 Kiley [facility] of 09:56:00 [facility] BASIC METABOLIC PANEL (NA, K, CL, 2020-11-02 Kiley [facility] of CO2, GLUCOSE, BUN, CREATININE, CA) 09:56:00 [facility] VITAMIN B1 (THIAMINE), WHOLE BLOOD 2020-11-02 Dianne Kiser [facility] of 09:56:00 [facility] MAGNESIUM 2020-11-02 [facility] 09:56:00 [facility] MAGNESIUM 2020-11-02 [facility] of 09:56:00 [facility] BASIC METABOLIC PANEL (NA, K, CL, 2020-11-02 [facility] CO2, GLUCOSE, BUN, CREATININE, CA) 09:56:00 [facility] CBC WITH DIFF 2020-11-02 [facility] of 09:56:00 [facility] VITAMIN B1 (THIAMINE), WHOLE BLOOD 2020-11-02 [facility] of 09:56:00 [facility] POCT GLUCOSE (AUTOMATED) 2020-11-02 Antonio Villa P Univers ity of 03:57:00 [facility] POCT GLUCOSE (AUTOMATED) 2020-11-02 Antonio Villa P Univers ity of 03:57:00 [facility] POCT GLUCOSE (AUTOMATED) 2020-11-02 Antonio Villa Univers ity of 00:42:00 [facility] POCT GLUCOSE (AUTOMATED) 2020-11-02 Antonio Villa Univers ity of 00:42:00 [facility] ELECTROENCEPHALOGRAM 2020-11-02 [facility] [place] of 00:00:00 [facility] ELECTROENCEPHALOGRAM 2020-11-02 [facility] [place] of 00:00:00 [facility] POCT GLUCOSE (AUTOMATED) 2020-11-01 [facility] of 21:46:00 [facility] POCT GLUCOSE (AUTOMATED) 2020-11-01 [facility] of 21:46:00 [facility] POCT GLUCOSE (AUTOMATED) 2020-11-01 [facility] of 20:44:00 [facility] POCT GLUCOSE (AUTOMATED) 2020-11-01 [facility] of 20:44:00 [facility] POCT GLUCOSE (AUTOMATED) 2020-11-01 [facility] of 17:03:00 [facility] POCT GLUCOSE (AUTOMATED) 2020-11-01 [facility] of 17:03:00 [facility] BASIC METABOLIC PANEL (NA, K, CL, 2020-11-01 Ele Cao Ponce of CO2, GLUCOSE, BUN, CREATININE, CA) 17:01:00 [facility] PROCALCITONIN 2020-11-01 Ele Cao Ponce of 17:01:00 [facility] THYROID STIMULATING HORMONE 2020-11-01 [facility] ersity of 17:01:00 [facility] FOLATE 2020-11-01 [facility] of 17:01:00 [facility] VITAMIN B12, LEVEL 2020-11-01 [facility] of 17:: [facility] VITAMIN B12, LEVEL 2020-11-01 [facility] of 17::00 [facility] FOLATE 2020-11-01 [facility] of 17::00 [facility] THYROID STIMULATING HORMONE 2020-11-01 [facility] ersity of 17:01:00 [facility] BASIC METABOLIC PANEL (NA, K, CL, 2020-11-01 Ele Cao Ponce of CO2, GLUCOSE, BUN, CREATININE, CA) 17:: [facility] PROCALCITONIN 2020-11-01 [facility] of 17:01:00 [facility] POCT GLUCOSE (AUTOMATED) 2020-11-01 [facility] of 12:51:00 [facility] POCT GLUCOSE (AUTOMATED) 2020-11-01 [facility] of 12:51:00 [facility] CBC WITH DIFF 2020-11-01 Ele Cao Ponce of 10:21:00 [facility] BASIC METABOLIC PANEL (NA, K, CL, 2020-11-01 Ele Cao Ponce of CO2, GLUCOSE, BUN, CREATININE, CA) 10:21:00 [facility] POCT GLUCOSE (AUTOMATED) 2020-11-01 [facility] of 10:21:00 [facility] BASIC METABOLIC PANEL (NA, K, CL, 2020-11-01 Ele Cao of CO2, GLUCOSE, BUN, CREATININE, CA) 10:21:00 [facility] CBC WITH DIFF 2020-11-01 Kiley Ele Ponce of 10:21:00 [facility] POCT GLUCOSE (AUTOMATED) 2020-11-01 [facility] of 10:21:00 [facility] POCT GLUCOSE (AUTOMATED) 2020-11-01 [facility] of 08:03:00 [facility] POCT GLUCOSE (AUTOMATED) 2020-11-01 [facility] of 08:03:00 [facility] BASIC METABOLIC PANEL (NA, K, CL, 2020-11-01 [facility] of CO2, GLUCOSE, BUN, CREATININE, CA) 05:06:00 [facility] POCT GLUCOSE (AUTOMATED) 2020-11-01 [facility] of 05:06:00 [facility] BASIC METABOLIC PANEL (NA, K, CL, 2020-11-01 [facility] of CO2, GLUCOSE, BUN, CREATININE, CA) 05:06:00 [facility] POCT GLUCOSE (AUTOMATED) 2020-11-01 [facility] of 05:06:00 [facility] POCT GLUCOSE (AUTOMATED) 2020-11-01 [facility] of 02:17:00 [facility] POCT GLUCOSE (AUTOMATED) 2020-11-01 [facility] of 02:17:00 [facility] MR STROKE BRAIN WO CONTRAST 2020-11-01 [facility] ersity of 01:18:51 [facility] MR STROKE BRAIN WO CONTRAST 2020-11-01 [facility] ersity of 01:18:51 [facility] POCT GLUCOSE (AUTOMATED) 2020-10-31 [facility] of 23:26:00 [facility] POCT GLUCOSE (AUTOMATED) 2020-10-31 [facility] of 23:26:00 [facility] POCT GLUCOSE (AUTOMATED) 2020-10-31 [facility] of 16:40:00 [facility] POCT GLUCOSE (AUTOMATED) 2020-10-31 [facility] of 16:40:00 [facility] POCT GLUCOSE (AUTOMATED) 2020-10-31 [facility] of 12:41:00 [facility] POCT GLUCOSE (AUTOMATED) 2020-10-31 [facility] of 12:41:00 [facility] CBC WITHOUT DIFF 2020-10-31 Faruqi, [facility] of 11:13:00 [facility] CBC WITHOUT DIFF 2020-10-31 Faru, [facility] of 11:13:00 [facility] PREPARE PACKED RBC 2020-10-31 [facility], [facility] of 06:44:13 [facility] PREPARE PACKED RBC 2020-10-31 [facility] of 06:44:13 [facility] HB ABO GROUPING 2020-10-31 [facility], [facility] of 05:48:00 [facility] HB ABO GROUPING 2020-10-31 [facility] of 05:48:00 [facility] POCT GLUCOSE (AUTOMATED) 2020-10-31 [facility] of 05:16:00 [facility] POCT GLUCOSE (AUTOMATED) 2020-10-31 [facility] of 05:16:00 [facility] BASIC METABOLIC PANEL (NA, K, CL, 2020-10-31 [facility] of CO2, GLUCOSE, BUN, CREATININE, CA) 04:05:00 [facility] CBC WITH DIFF 2020-10-31 [facility] of 04:05:00 [facility] ACTIVATED PARTIAL THRMPLAS CARLTON 2020-10-31 Bowen Rus[facility]iversity of 04:05:00 [facility] MAGNESIUM 2020-10-31 [facility], [facility] of 04:05:00 [facility] MAGNESIUM 2020-10-31 [facility], [facility] of 04:05:00 [facility] BASIC METABOLIC PANEL (NA, K, CL, 2020-10-31 [facility] of CO2, GLUCOSE, BUN, CREATININE, CA) 04:05:00 [facility] CBC WITH DIFF 2020-10-31 [facility] of 04:05:00 [facility] ACTIVATED PARTIAL THRMPLAS CARLTON 2020-10-31 Bowen Russo niversity of 04:05:00 [facility] HB ECG ROUTINE & RHYTHM STRIP 2020-10-31 [place], Khaled Un iversity of 03:58:40 [facility] HB ECG ROUTINE & RHYTHM STRIP 2020-10-31 Felix Peckethel Un iversity of 03:58:40 [facility] POCT GLUCOSE (AUTOMATED) 2020-10-31 [facility] of 01:27:00 [facility] POCT GLUCOSE (AUTOMATED) 2020-10-31 [facility] of 01:27:00 [facility] XR CHEST 1 VW 2020-10-31 [facility] of 01:06:00 [facility] XR CHEST 1 VW 2020-10-31 [facility] of 01:06:00 [facility] POCT GLUCOSE (AUTOMATED) 2020-10-30 [facility] of 22:08:00 [facility] POCT GLUCOSE (AUTOMATED) 2020-10-30 [facility] of 22:08:00 [facility] POCT GLUCOSE (AUTOMATED) 2020-10-30 [facility] of 19:43:00 [facility] POCT GLUCOSE (AUTOMATED) 2020-10-30 [facility] of 19:43:00 [facility] ACTIVATED PARTIAL THRMPLAS CARLTON 2020-10-30 Bowen Russo [facility] of 17:13:00 [facility] ACTIVATED PARTIAL THRMPLAS CARLTON 2020-10-30 Bowen Russo U [facility] of 17:13:00 [facility] POCT GLUCOSE (AUTOMATED) 2020-10-30 [facility] of 17:05:00 [facility] POCT GLUCOSE (AUTOMATED) 2020-10-30 [facility] of 17:05:00 [facility] CBC WITHOUT DIFF 2020-10-30 [facility] of 13:57:00 [facility] BASIC METABOLIC PANEL (NA, K, CL, 2020-10-30 Ele Cao Ponce of CO2, GLUCOSE, BUN, CREATININE, CA) 13:57:00 [facility] MAGNESIUM 2020-10-30 Ele Cao Ponce of 13:57:00 [facility] MAGNESIUM 2020-10-30 [facility] of 13:57:00 [facility] BASIC METABOLIC PANEL (NA, K, CL, 2020-10-30 [facility] of CO2, GLUCOSE, BUN, CREATININE, CA) 13:57:00 [facility] CBC WITHOUT DIFF 2020-10-30 [facility] of 13:57:00 [facility] POCT GLUCOSE (AUTOMATED) 2020-10-30 [facility] of 12:40:00 [facility] POCT GLUCOSE (AUTOMATED) 2020-10-30 Antonio Villa P [facility] it[facility] of 12:40:00 [facility] POCT GLUCOSE (AUTOMATED) 2020-10-30 Antonio Villa P [facility] it[facility] of 09:33:00 [facility] POCT GLUCOSE (AUTOMATED) 2020-10-30 Antonio Villa P [facility] of 09:33:00 [facility] POCT GLUCOSE (AUTOMATED) 2020-10-30 [facility] of 06:23:00 [facility] POCT GLUCOSE (AUTOMATED) 2020-10-30 Antonio Villa P [facility] of 06:23:00 [facility] BASIC METABOLIC PANEL (NA, K, CL, 2020-10-30 [facility] of CO2, GLUCOSE, BUN, CREATININE, CA) 05:24:00 [facility] ACTIVATED PARTIAL THRMPLAS CARLTON 2020-10-30 Bowen Russo U [facility] of 05:24:00 [facility] CBC WITH DIFF 2020-10-30 [facility] of 05:24:00 [facility] MAGNESIUM 2020-10-30 [facility] of 05:24:00 [facility] MAGNESIUM 2020-10-30 [facility] of 05:24:00 [facility] BASIC METABOLIC PANEL (NA, K, CL, 2020-10-30 [facility] of CO2, GLUCOSE, BUN, CREATININE, CA) 05:24:00 [facility] CBC WITH DIFF 2020-10-30 [facility] of 05:24:00 [facility] ACTIVATED PARTIAL THRMPLAS CARLTON 2020-10-30 Bowen Rus[facility]iversity of 05:24:00 [facility] POCT GLUCOSE (AUTOMATED) 2020-10-30 [facility] of 03:24:00 [facility] POCT GLUCOSE (AUTOMATED) 2020-10-30 [facility] of 03:24:00 [facility] POCT GLUCOSE (AUTOMATED) 2020-10-30 [facility] of 00:45:00 [facility] POCT GLUCOSE (AUTOMATED) 2020-10-30 [facility] of 00:45:00 [facility] POCT GLUCOSE (AUTOMATED) 2020-10-29 [facility] of 22:25:00 [facility] POCT GLUCOSE (AUTOMATED) 2020-10-29 [facility] of 22:25:00 [facility] ACTIVATED PARTIAL THRMPLAS CARLTON 2020-10-29 Bow[facility] Russo [facility] of 20:52:00 [facility] ACTIVATED PARTIAL THRMPLAS CARLTON 2020-10-29 Bowen Russo niversity of 20:52:00 [facility] BASIC METABOLIC PANEL (NA, K, CL, 2020-10-29 [facility] of CO2, GLUCOSE, BUN, CREATININE, CA) 20:08:00 [facility] MAGNESIUM 2020-10-29 [facility] of 20:08:00 [facility] MAGNESIUM 2020-10-29 [facility] of 20:08:00 [facility] BASIC METABOLIC PANEL (NA, K, CL, 2020-10-29 [facility] of CO2, GLUCOSE, BUN, CREATININE, CA) 20:08:00 [facility] POCT GLUCOSE (AUTOMATED) 2020-10-29 Espinosa, Univers ity of 19:12:00 [facility] POCT GLUCOSE (AUTOMATED) 2020-10-29 Espinosa, [facility] ity of 19:12:00 [facility] POCT GLUCOSE (AUTOMATED) 2020-10-29 Esipnosa, Univers ity of 16:27:00 [facility] POCT GLUCOSE (AUTOMATED) 2020-10-29 Espinosa, [facility] ity of 16:27:00 [facility] TROPONIN I 2020-10-29 Fernando Yuan Ponce of 15:15:00 [facility] BASIC METABOLIC PANEL (NA, K, CL, 2020-10-29 Ele Cao Ponce of CO2, GLUCOSE, BUN, CREATININE, CA) 15:15:00 [facility] ACTIVATED PARTIAL THRMPLAS CARLTON 2020-10-29 Bowen Russo niversity of 15:15:00 [facility] TROPONIN I 2020-10-29 [facility] 15:15:00 [facility] BASIC METABOLIC PANEL (NA, K, CL, 2020-10-29 [facility] of CO2, GLUCOSE, BUN, CREATININE, CA) 15:15:00 [facility] ACTIVATED PARTIAL THRMPLAS CARLTON 2020-10-29 Bowen Russo [facility]iversity of 15:15:00 [facility] POCT GLUCOSE (AUTOMATED) 2020-10-29 [facility] of 12:54:00 [facility] POCT GLUCOSE (AUTOMATED) 2020-10-29 [facility] ity of 12:54:00 [facility] XR BONE SURVEY 2020-10-29 [facility] of 09:39:57 [facility] XR BONE SURVEY 2020-10-29 [facility] of 09:39:57 [facility] MRSA / MSSA SCREEN BY PCRBRITNEY 2020-10-29 [facility] 08:01:00 [facility] MRSA / MSSA [facility]CREEN [facility]29 Rafaela [facility] of 08:01:00 [facility] TROPONIN I 2020-10-29 Fernando Yuan [facility] 08:00:00 [facility] CBC WITH DIFF 2020-10-29 [facility] of 08:00:00 [facility] BASIC METABOLIC PANEL (NA, K, CL, 2020-10-29 [facility] of CO2, GLUCOSE, BUN, CREATININE, CA) 08:00:00 [facility] TROPONIN I 2020-10-29 Fernando Yuan Ponce of 08:00:00 [facility] BASIC METABOLIC PANEL (NA, K, CL, 2020-10-29 Ele Cao Ponce of CO2, GLUCOSE, BUN, CREATININE, CA) 08:00:00 [facility] CBC WITH DIFF 2020-10-29 [facility] of 08:00:00 [facility] POCT GLUCOSE (AUTOMATED) 2020-10-29 [facility] ity of 07:09:00 [facility] POCT GLUCOSE (AUTOMATED) 2020-10-29 [facility] it[facility] of 07:09:00 [facility] POCT GLUCOSE (AUTOMATED) 2020-10-29 [facility] ity of 03:58:00 [facility] POCT GLUCOSE (AUTOMATED) 2020-10-29 [facility] ity of 03:58:00 [facility] TROPONIN I 2020-10-29 [facility] 03:18:00 [facility] CBC WITH DIFF 2020-10-29 [facility] of 03:18:00 [facility] BASIC METABOLIC PANEL (NA, K, CL, 2020-10-29 [facility], [facility] of CO2, GLUCOSE, BUN, CREATININE, CA) 03:18:00 [facility] MAGNESIUM 2020-10-29 [facility] of 03:18:00 [facility] MAGNESIUM 2020-10-29 [facility] of 03:18:00 [facility] TROPONIN I 2020-10-29 [facility] 03:18:00 [facility] BASIC METABOLIC PANEL (NA, K, CL, 2020-10-29 [facility], [facility] of CO2, GLUCOSE, BUN, CREATININE, CA) 03:18:00 [facility] CBC WITH DIFF 2020-10-29 [facility] of 03:18:00 [facility] PROTHROMBIN TIME / INR 2020-10-29 [facility] y of 03:17:00 [facility] FIBRINOGEN 2020-10-29 [facility], [facility] of 03:17:00 [facility] PROTHROMBIN TIME / INR 2020-10-29 [facility], [facility] y of 03:17:00 [facility] FIBRINOGEN 2020-10-29 [facility], [facility] of 03:17:00 [facility] AC PANEL 20 + LACTIC ACID 2020-10-29 [facility] sity of 03:09:00 [facility] AC PANEL 20 + LACTIC ACID 2020-10-29 [employer] [facility] of 03:09:00 [facility] CT HEAD WO CONTRAST 2020-10-29 [facility] o f 02:45:23 [facility] CT HEAD WO CONTRAST 2020-10-29 [facility] o f 02:45:23 [facility] POCT GLUCOSE (AUTOMATED) 2020-10-29 [facility], Univers ity of 01:09:00 [facility] POCT GLUCOSE (AUTOMATED) 2020-10-29 [facility], Univers ity of 01:09:00 [facility] POCT GLUCOSE (AUTOMATED) 2020-10-28 [facility], Univers ity of 21:42:00 [facility] POCT GLUCOSE (AUTOMATED) 2020-10-28 [facility], Univers ity of 21:42:00 [facility] TRANSTHORACIC ECHO (TTE) COMPLETE 2020-10-28 [facility], [facility]/ CONTRAST 20:20:00 [facility] TRANSTHORACIC ECHO (TTE) COMPLETE 2020-10-28 [facility]/ CONTRAST 20:20:00 [facility] POCT GLUCOSE (AUTOMATED) 2020-10-28 [facility], [facility] ity of 16:35:00 [facility] POCT GLUCOSE (AUTOMATED) 2020-10-28 [facility], [facility] ity of 16:35:00 [facility] XR CHEST 1 VW 2020-10-28 Leonel, [facility] 15:19:34 [facility] XR CHEST 1 VW 2020-10-28 Leonel, [facility] 15:19:34 [facility] HB ECG ROUTINE & RHYTHM STRIP 2020-10-28 Leonel, Un iversity of 14:00:32 [facility] HB ECG ROUTINE & RHYTHM STRIP 2020-10-28 Leonel, Un iversity of 14:00:32 [facility] AC PANEL 20 + LACTIC ACID 2020-10-28 Leonel, Univer sity of 13:52:00 [facility] AC PANEL 20 + LACTIC ACID 2020-10-28 Leonel, Susie sity of 13:52:00 [facility] POCT GLUCOSE (AUTOMATED) 2020-10-28 Antonio Villa [facility] of 13:44:00 [facility] POCT GLUCOSE (AUTOMATED) 2020-10-28 Antonio Villa [facility] of 13:44:00 [facility] POCT GLUCOSE (AUTOMATED) 2020-10-28 Antonio Villa P Univers ity of 13:15:00 [facility] POCT GLUCOSE (AUTOMATED) 2020-10-28 Antonio Villa [facility] of 13:15:00 [facility] POCT GLUCOSE (AUTOMATED) 2020-10-28 Antonio Villa [facility] of 10:41:00 [facility] POCT GLUCOSE (AUTOMATED) 2020-10-28 Antonio Villa [facility] of 10:41:00 [facility] URINE CULTURE 2020-10-28 [facility] of 07:48:00 [facility] URINE CULTURE 2020-10-28 [facility] of 07:48:00 [facility] TROPONIN I 2020-10-28 [facility] of 07:45:00 [facility] CBC WITHOUT DIFF 2020-10-28 [facility] of 07:45:00 [facility] BASIC METABOLIC PANEL (NA, K, CL, 2020-10-28 [facility] of CO2, GLUCOSE, BUN, CREATININE, CA) 07:45:00 [facility] TROPONIN I 2020-10-28 [facility] of 07:45:00 [facility] BASIC METABOLIC PANEL (NA, K, CL, 2020-10-28 [facility] of CO2, GLUCOSE, BUN, CREATININE, CA) 07:45:00 [facility] CBC WITHOUT DIFF 2020-10-28 [facility] of 07:45:00 [facility] POCT GLUCOSE (AUTOMATED) 2020-10-28 Antonio Villa [facility] of 07:37:00 [facility] POCT GLUCOSE (AUTOMATED) 2020-10-28 Antonio Villa [facility] of 07:37:00 [facility] POCT GLUCOSE (AUTOMATED) 2020-10-28 Antonio Villa P Univers ity of 04:15:00 [facility] POCT GLUCOSE (AUTOMATED) 2020-10-28 Antonio Villa P Univers ity of 04:15:00 [facility] POCT GLUCOSE (AUTOMATED) 2020-10-28 Antonio Villa [facility] of 01:28:00 [facility] POCT GLUCOSE (AUTOMATED) 2020-10-28 Antonio Villa [facility] of 01:28:00 [facility] BLOOD CULTURE SCREEN 2020-10-27 [facility] of 23:28:00 [facility] BLOOD CULTURE SCREEN 2020-10-27 [facility] of 23:28:00 [facility] BASIC METABOLIC PANEL (NA, K, CL, 2020-10-27 [facility] of CO2, GLUCOSE, BUN, CREATININE, CA) 21:40:00 [facility] TROPONIN I 2020-10-27 [facility] of 21:40:00 [facility] EXTRA TUBE LAV 2020-10-27 [facility] 21:40:00 [facility] TROPONIN I 2020-10-27 [facility] of 21:40:00 [facility] BASIC METABOLIC PANEL (NA, K, CL, 2020-10-27 [facility] of CO2, GLUCOSE, BUN, CREATININE, CA) 21:40:00 [facility] EXTRA TUBE LAV 2020-10-27 [facility], [facility] of [facility]:40[facility]00 [facility]OMATED) 2020-10-27 Vonda Starks Univers ity of 21:28:00 [facility] POCT GLUCOSE (AUTOMATED) 2020-10-27 Vonda Starks Univers ity of 21:28:00 [facility] POCT GLUCOSE (AUTOMATED) 2020-10-27 Vonda Starks Univers ity of 19:12:00 [facility] POCT GLUCOSE (AUTOMATED) 2020-10-27 Vonda Starks Univers ity of 19:12:00 [facility] POCT GLUCOSE (AUTOMATED) 2020-10-27 Vonda Starks Univers ity of 16:09:00 [facility] POCT GLUCOSE (AUTOMATED) 2020-10-27 Vonda Starks Univers ity of 16:09:00 [facility] CBC WITH DIFF 2020-10-27 Jax Austin Ponce of 13:09:00 [facility] CBC WITH DIFF 2020-10-27 Jax Austin Ponce of 13:09:00 [facility] POCT GLUCOSE (AUTOMATED) 2020-10-27 Vonda Starks Univers ity of 12:57:00 [facility] POCT GLUCOSE (AUTOMATED) 2020-10-27 [facility]onda [facility] [employer] [facility] of 12:57:00 [facility] BASIC METABOLIC PANEL (NA, K, CL, 2020-10-27 Norman Jax Ponce of CO2, GLUCOSE, BUN, CREATININE, CA) 10:57:00 [facility] TROPONIN I 2020-10-27 [facility] of 10:57:00 [facility] TROPONIN I 2020-10-27 [facility] of 10:57:00 [facility] BASIC METABOLIC PANEL (NA, K, CL, 2020-10-27 [facility] CO2, GLUCOSE, BUN, CREATININE, CA) 10:57:00 [facility] BASIC METABOLIC PANEL (NA, K, CL, 2020-10-27 [place] [address], GLUCOSE, BUN, CREATININE, CA) 05:09:00 [facility] TROPONIN I 2020-10-27 Norman Jax Ponce of 05:09:00 [facility] TROPONIN I 2020-10-27 Norman Jax Ponce of 05:09:00 [facility] BASIC METABOLIC PANEL (NA, K, CL, 2020-10-27 [facility] of CO2, GLUCOSE, BUN, CREATININE, CA) 05:09:00 [facility] POCT GLUCOSE (AUTOMATED) 2020-10-27 Vonda Starks ity of 02:53:00 [facility] POCT GLUCOSE (AUTOMATED) 2020-10-27 Vonda Starks ity of 02:53:00 [facility] BASIC METABOLIC PANEL (NA, K, CL, 2020-10-26 Norman Jax [employer] of CO2, GLUCOSE, BUN, CREATININE, CA) 22:44:00 [facility] BASIC METABOLIC PANEL (NA, K, CL, 2020-10-26 Jax Austin of CO2, GLUCOSE, BUN, CREATININE, CA) 22:44:00 [facility] POCT GLUCOSE (AUTOMATED) 2020-10-26 [facility] [employer] of 21:39:00 [facility] POCT GLUCOSE (AUTOMATED) 2020-10-26 [facility] [employer] of 21:39:00 [facility] XR ABDOMEN 1 VW 2020-10-26 Jax Austin Ponce of 20:25:00 [facility] XR ABDOMEN 1 VW 2020-10-26 Jax Austin Ponce of 20:25:00 [facility] POCT GLUCOSE (AUTOMATED) 2020-10-26 [facility] [employer] of 16:55:00 [facility] POCT GLUCOSE (AUTOMATED) 2020-10-26 [facility]onda Starks [employer] [facility] of 16:55:00 [facility] POCT GLUCOSE (AUTOMATED) 2020-10-26 [facility]onda St[facility] [employer] of 12:57:00 [facility] POCT GLUCOSE (AUTOMATED) 2020-10-26 [facility]onda Starks [employer] [facility] of 12:57:00 [facility] BASIC METABOLIC PANEL (NA, K, CL, 2020-10-26 [facility] of CO2, GLUCOSE, BUN, CREATININE, CA) 08:46:00 [facility] CBC WITH DIFF 2020-10-26 [facility] of 08:46:00 [facility] MAGNESIUM 2020-10-26 Mars [facility] of 08:46:00 [facility] TROPONIN I 2020-10-26 [facility] of 08:46:00 [facility] MAGNESIUM 2020-10-26 Mars [facility] of 08:46:00 [facility] TROPONIN I 2020-10-26 [facility] of 08:46:00 [facility] BASIC METABOLIC PANEL (NA, K, CL, 2020-10-26 [facility] of CO2, GLUCOSE, BUN, CREATININE, CA) 08:46:00 [facility] CBC WITH DIFF 2020-10-26 Margi [facility] of 08:46:00 [facility] TROPONIN I 2020-10-26 Katina [facility] of 02:23:00 [facility] TROPONIN I 2020-10-26 Katina [facility] of 02:23:00 [facility] POCT GLUCOSE (AUTOMATED) 2020-10-26 TerezaJairod [facility] ity of 02:22:00 [facility] POCT GLUCOSE (AUTOMATED) 2020-10-26 [facility]onda [facility]arks [employer] of 02:22:00 [facility] POCT GLUCOSE (AUTOMATED) 2020-10-25 Vonda Starks [facility] ity of 23:35:00 [facility] POCT GLUCOSE (AUTOMATED) 2020-10-25 Vonda Starks [facility] ity of 23:35:00 [facility] BASIC METABOLIC PANEL (NA, K, CL, 2020-10-25 [facility] of CO2, GLUCOSE, BUN, CREATININE, CA) 19:50:00 [facility] MAGNESIUM 2020-10-25 [facility] of 19:50:00 [facility] TROPONIN I 2020-10-25 [facility] of 19:50:00 [facility] MAGNESIUM 2020-10-25 [facility] of 19:50:00 [facility] TROPONIN I 2020-10-25 [facility] of 19:50:00 [facility] BASIC METABOLIC PANEL (NA, K, CL, 2020-10-25 [facility] of CO2, GLUCOSE, BUN, CREATININE, CA) 19:50:00 [facility] AC PANEL 20 + LACTIC ACID 2020-10-25 Margi [facility] sity of 19:49:00 [facility] AC PANEL 20 + LACTIC ACID 2020-10-25 Margi [facility] sity of 19:49:00 [facility] HB ECG ROUTINE & RHYTHM STRIP 2020-10-25 Dianne Kiser iversity of 19:35:45 [facility] HB ECG ROUTINE & RHYTHM STRIP 2020-10-25 Dianne Kiser Un iversity of 19:35:45 [facility] AC PANEL 20 + LACTIC ACID 2020-10-25 Bowen Russo [facility] sity of 18:22:00 [facility] AC PANEL 20 + LACTIC ACID 2020-10-25 RafaelaBowen Univer sity of 18:22:00 [facility] POCT GLUCOSE (AUTOMATED) 2020-10-25 [facility]arks [employer] of 17:15:00 [facility] POCT GLUCOSE (AUTOMATED) 2020-10-25 Vonda Starks [employer] of 17:15:00 [facility] AC PANEL 20 + LACTIC ACID 2020-10-25 Maycodiana, Bowen Univer sity of 15:21:00 [facility] AC PANEL 20 + LACTIC ACID 2020-10-25 Sydor, Bowen Univer sity of 15:21:00 [facility] POCT GLUCOSE (AUTOMATED) 2020-10-25 [facility]arks [employer] [facility] of 12:42:00 [facility] POCT GLUCOSE (AUTOMATED) 2020-10-25 [facility]onda Starks [employer] [facility] of 12:42:00 [facility] CBC WITH DIFF 2020-10-25 Jax Austin Ponce of 08:27:00 [facility] BASIC METABOLIC PANEL (NA, K, CL, 2020-10-25 Norman Jax Ponce of CO2, GLUCOSE, BUN, CREATININE, CA) 08:27:00 [facility] MAGNESIUM 2020-10-25 Norman Jax Ponce of 08:27:00 [facility] MAGNESIUM 2020-10-25 Norman [facility] of 08:27:00 [facility] BASIC METABOLIC PANEL (NA, K, CL, 2020-10-25 Norman Jax Ponce of CO2, GLUCOSE, BUN, CREATININE, CA) 08:27:00 [facility] CBC WITH DIFF 2020-10-25 Jax Austin Ponce of 08:27:00 [facility] POCT GLUCOSE (AUTOMATED) 2020-10-25 [facility]onda Starks [employer] [facility] of 01:28:00 [facility] POCT GLUCOSE (AUTOMATED) 2020-10-25 Vonda Starks [employer] [facility] of 01:28:00 [facility] POCT GLUCOSE (AUTOMATED) 2020-10-24 Vonda Starks [employer] [facility] of 21:35:00 [facility] POCT GLUCOSE (AUTOMATED) 2020-10-24 Vonda Starks [employer] [facility] of 21:35:00 [facility] CT HEAD WO CONTRAST 2020-10-24 Jax Austin o f 19:12:43 [facility] CT HEAD WO CONTRAST 2020-10-24 Jax Austin [facility] o f 19:12:43 [facility] POCT GLUCOSE (AUTOMATED) 2020-10-24 Vonda Starks ity of 16:51:00 [facility] POCT GLUCOSE (AUTOMATED) 2020-10-24 Vonda Starks ity of 16:51:00 [facility] CT THORAX W CONTRAST 2020-10-24 Jax Austin of 14:08:31 [facility] CT THORAX W CONTRAST 2020-10-24 Jax Austin [facility] of 14:08:31 [facility] CT ABDOMEN PELVIS W CONTRAST 2020-10-24 Jax Austin Uni vers[facility] of 14:06:06 [facility] CT ABDOMEN PELVIS W CONTRAST 2020-10-24 Jax Austin Uni vers[facility] of 14:06:06 [facility] POCT GLUCOSE (AUTOMATED) 2020-10-24 Vonda Starks [employer] [facility] of 12:42:00 [facility] POCT GLUCOSE (AUTOMATED) 2020-10-24 Vonda Starks [employer] [facility] of 12:42:00 [facility] MAGNESIUM 2020-10-24 [facility] 09:41:00 [facility] BASIC METABOLIC PANEL (NA, K, CL, 2020-10-24 [facility] of CO2, GLUCOSE, BUN, CREATININE, CA) 09:41:00 [facility] CBC WITH DIFF 2020-10-24 [facility] of 09:41:00 [facility] MAGNESIUM 2020-10-24 [facility] of 09:41:00 [facility] BASIC METABOLIC PANEL (NA, K, CL, 2020-10-24 [facility] of CO2, GLUCOSE, BUN, CREATININE, CA) 09:41:00 [facility] CBC WITH DIFF 2020-10-24 [facility] of 09:41:00 [facility] AUTHORIZATION FOR RELEASE OF [facility] 2020-10-24 [facility] of 05:01:00 Unassigned, No [facility] AUTHORIZATION FOR RELEASE OF PHI 2020-10-24 [facility] of 05:01:00 Unassigned, No [facility] POCT GLUCOSE (AUTOMATED) 2020-10-24 [facility]onda Starks [employer] [facility] of 01:01:00 [facility] POCT GLUCOSE (AUTOMATED) 2020-10-24 Vonda Starks [employer] [facility] of 01:01:00 [facility] POCT GLUCOSE (AUTOMATED) 2020-10-23 Vonda Starks [facility] of 23:29:00 [facility] POCT GLUCOSE (AUTOMATED) 2020-10-23 Vonda Starks [employer] [facility] of 23:29:00 [facility] POCT GLUCOSE (AUTOMATED) 2020-10-23 Vonda Starks [facility] of 18:06:00 [facility] POCT GLUCOSE (AUTOMATED) 2020-10-23 Vonda Starks [facility] of 18:06:00 [facility] CBC WITH DIFF 2020-10-23 [facility] 13:08:00 [facility] CBC WITH DIFF 2020-10-23 [facility] of 13:08:00 [facility] POCT GLUCOSE (AUTOMATED) 2020-10-23 Vonda Starks [facility] of 13:06:00 [facility] POCT GLUCOSE (AUTOMATED) 2020-10-23 Vonda Starks [facility] of 13:06:00 [facility] PREPARE PACKED RBC 2020-10-23 Ele Cao Ponce of 10:02:05 [facility] PREPARE PACKED RBC 2020-10-23 Ele Cao Ponce of 10:02:05 [facility] CBC WITH DIFF 2020-10-23 Jax Austin Ponce of 08:46:00 [facility] BASIC METABOLIC PANEL (NA, K, CL, 2020-10-23 Jax Austin of CO2, GLUCOSE, BUN, CREATININE, CA) 08:46:00 [facility] MAGNESIUM 2020-10-23 Ele Cao Ponce of 08:46:00 [facility] MAGNESIUM 2020-10-23 Ele Cao Ponce of 08:46:00 [facility] BASIC METABOLIC PANEL (NA, K, CL, 2020-10-23 Jax Austin of CO2, GLUCOSE, BUN, CREATININE, CA) 08:46:00 [facility] CBC WITH DIFF 2020-10-23 Jax Austin of 08:46:00 [facility] TROPONIN I 2020-10-22 Jax Austin of 22:48:00 [facility] CBC WITH DIFF 2020-10-22 Jax Austin of 22:48:00 [facility] TROPONIN I 2020-10-22 Jax Austin of 22:48:00 [facility] CBC WITH DIFF 2020-10-22 Jax Austin of 22:48:00 [facility] XR ABDOMEN 1 VW 2020-10-22 Jax Austin of 22:32:58 [facility] XR ABDOMEN 1 VW 2020-10-22 Jax Austin of 22:32:58 [facility] GLYCOSYLATED HEMOGLOBIN (A1C) 2020-10-22 Jax Austin iversity of 18:10:00 [facility] IRON PANEL 2020-10-22 Jax Austin of 18:10:00 [facility] IRON PANEL 2020-10-22 Jax Austin of 18:10:00 [facility] GLYCOSYLATED HEMOGLOBIN (A1C) 2020-10-22 Jax Austin iversity of 18:10:00 [facility] XR CHEST 1 VW 2020-10-22 Jax Austin of 17:58:02 [facility] XR CHEST 1 VW 2020-10-22 Jax Austin of 17:58:02 [facility] AC PANEL 20 + LACTIC ACID 2020-10-22 [facility]ax [facility] 17:30:00 [facility] AC PANEL 20 + LACTIC ACID 2020-10-22 Jax Austin [facility] of 17:30:00 [facility] BLOOD CULTURE SCREEN 2020-10-22 Jax Austin of 17:17:00 [facility] BLOOD CULTURE SCREEN 2020-10-22 Jax Austin of 17:17:00 [facility] URINALYSIS 2020-10-22 Jax Austin of 16:59:00 [facility] URINE CULTURE 2020-10-22 Jax Austin of 16:59:00 [facility] BASIC METABOLIC PANEL (NA, K, CL, 2020-10-22 Jax Austin of CO2, GLUCOSE, BUN, CREATININE, CA) 16:59:00 [facility] CBC WITH DIFF 2020-10-22 Jax Austin of 16:59:00 [facility] FIBRINOGEN 2020-10-22 Jax Austin of 16:59:00 [facility] PROTHROMBIN TIME / INR 2020-10-22 Jax Austin y of 16:59:00 [facility] HEPATIC FUNCTION PANEL ([id number]) 2020-10-22 Jax Austin niversity of (ALB,T.PRO,BILI 16:59:00 [facility] T,BU/BC,ALT,AST,ALK PHOS) [place] FERRITIN SERUM 2020-10-22 Jax Austin of 16:59:00 [facility] TROPONIN I 2020-10-22 Jax Austin of 16:59:00 [facility] FERRITIN SERUM 2020-10-22 Jax Austin of 16:59:00 [facility] TROPONIN I 2020-10-22 Jax Austin of 16:59:00 [facility] HEPATIC FUNCTION PANEL ([id number]) 2020-10-22 Jax Austin niversity of (ALB,T.PRO,BILI 16:59:00 [facility] T,BU/BC,ALT,AST,ALK PHOS) [place] BASIC METABOLIC PANEL (NA, K, CL, 2020-10-22 Jax Austin of CO2, GLUCOSE, BUN, CREATININE, CA) 16:59:00 [facility] CBC WITH DIFF 2020-10-22 Jax Austin of 16:59:00 [facility] PROTHROMBIN TIME / INR 2020-10-22 Jax Austin y of 16:59:00 [facility] FIBRINOGEN 2020-10-22 Jax Austin Ponce of 16:59:00 [facility] URINALYSIS 2020-10-22 Jax Austin of 16:59:00 [facility] URINE CULTURE 2020-10-22 Jax Austin of 16:59:00 [facility] MRSA / MSSA SCREEN BY PCR, BRITNEY 2020-10-22 Jax Austin of 16:45:00 [facility] MRSA / MSSA SCREEN BY PCR, BRITNEY 2020-10-22 Jax Austin of 16:45:00 [facility] HB ECG ROUTINE & RHYTHM STRIP 2020-10-22 Brown, Jax Un iversity of 16:40:04 [facility] HB ECG ROUTINE & RHYTHM STRIP 2020-10-22 Jax Austin iversity of 16:40:04 [facility] HB ABO GROUPING 2020-10-22 Jax Austin Ponce of 16:30:00 [facility] HB ABO GROUPING 2020-10-22 Jax Austin Ponce of 16:30:00 [facility] HOSPITAL ADMISSION 2020-10-22 [facility] of 05:01:00 Unassigned, No [facility] HOSPITAL ADMISSION 2020-10-22 [facility] of 05:01:00 Unassigned, No [facility] REFERRAL- REQUEST/RESPONSE 2020-07-04 [facility] rsity of 06:01:00 Unassigned, No [facility] TROPONIN I 2020-05-03 [place] [facility] of 19:53:00 [facility] HEPATIC FUNCTION PANEL ([id number]) 2020-05-[address] of (ALB,T.PRO,BILI 19:53:00 [facility],BU/BC,ALT,AST,ALK PHOS) [place] BASIC METABOLIC PANEL (NA, K, CL, 2020-05-03 [facility] of CO2, GLUCOSE, BUN, CREATININE, CA) 19:53:00 [facility] CBC WITH DIFF 2020-05-03 [facility] of 19:53:00 [facility] N-TERMINAL PRO-BNP 2020-05-03 [facility] o f 19:53:00 [facility] HB ABO GROUPING 2020-05-03 [facility] of 19:52:00 [facility] EKG-12 LEAD 2020-05-03 [facility] of 19:00:54 [facility] CONSENT/REFUSAL FOR DIAGNOSIS AND 2020-05-03 [facility] of TREATMENT 18:25:10 Unassigned, No [facility] MEDICAL RELEASE/CLEARANCE FORMS 2019-11-16 [facility] of 05:01:00 Unassigned, No [facility] POCT GLUCOSE (AUTOMATED) 2019-10-28 Faustino Mason [facility] ity of 12:52:00 [facility] URIC ACID 2019-10-28 Faustino Mason Ponce of 09:13:00 [facility] COMP. METABOLIC PANEL ([id number]) 2019-10-28 Faustino Mason Un iversity of 09:13:00 [facility] CBC WITH DIFFERENTIAL 2019-10-28 [facility] 09:13:00 [facility] N-TERMINAL PRO-BNP 2019-10-28 [facility]lon, [facility] of 09:13:00 [facility] POCT GLUCOSE (AUTOMATED) 2019-10-28 Marlon, [facility] ity of 01:54:00 [facility] POCT GLUCOSE (AUTOMATED) 2019-10-27 Marlon, [facility] Univers ity of 21:06:00 [facility] POCT GLUCOSE (AUTOMATED) 2019-10-27 Marlon, [facility] Univers ity of 16:18:00 [facility] TROPONIN I 2019-10-27 Marlon, [facility] of 15:00:00 [facility] PROFILE / HEMOGRAM 2019-10-27 Marlon, [facility] of 15:00:00 [facility] POCT GLUCOSE (AUTOMATED) 2019-10-27 Marlon, [facility] it[facility] of 14:34:00 [facility] POCT GLUCOSE (AUTOMATED) 2019-10-27 Marlon, [facility] Univers ity of 12:39:00 [facility] URINALYSIS 2019-10-27 Marlon, [facility] of 10:46:00 [facility] POCT GLUCOSE (AUTOMATED) 2019-10-27 Marlon, [facility] Univers ity of 10:46:00 [facility] UREA NITROGEN, URINE RANDOM 2019-10-27 Marlon, [facility] ersity of 10:46:00 [facility] SODIUM, URINE RANDOM 2019-10-27 Marlon [facility] of 10:46:00 [facility] PROTEIN CREAT RATIO URINE RANDOM 2019-10-27 Marlon [facility] of 10:46:00 [facility] URIC ACID 2019-10-27 [facility] 09:10:00 [facility] MAGNESIUM 2019-10-27 Marlon, [facility] of 09:10:00 [facility] TROPONIN I 2019-10-27 Marlon, [facility] of 09:10:00 [facility] COMP. METABOLIC PANEL ([id number]) 2019-10-27 Faustino Mason Un iversity of 09:10:00 [facility] SEDIMENTATION RATE 2019-10-27 Faustino Mason of 09:10:00 [facility] CBC WITH DIFFERENTIAL 2019-10-27 Faustino Mason Ponce of 09:10:00 [facility] N-TERMINAL PRO-BNP 2019-10-27 Faustino Mason Ponce of 09:10:00 [facility] POCT GLUCOSE (AUTOMATED) 2019-10-27 Faustino Mason [facility] ity of 08:44:00 [facility] POCT GLUCOSE (AUTOMATED) 2019-10-27 Faustino Mason [facility] ity of 06:32:00 [facility] POCT GLUCOSE (AUTOMATED) 2019-10-27 Aisha Bah Univer sity of 05:30:00 [facility] CBC WITH DIFFERENTIAL 2019-10-27 Aisha Bah Universit y of 04:30:00 [facility] GLYCOSYLATED HEMOGLOBIN (A1C) 2019-10-27 Faustino Mason Un iversity of 04:30:00 [facility] CORONAVIRUS COVID-19 TESTING 2019-10-27 Aisha Bah Un iversity of 04:30:00 [facility] POCT GLUCOSE (AUTOMATED) 2019-10-27 Aisha Bah Univer sity of 04:29:00 [facility] POCT GLUCOSE (AUTOMATED) 2019-10-27 Aisha Bah Univer sity of 03:32:00 [facility] POCT GLUCOSE (AUTOMATED) 2019-10-27 Aisha Bah Univer sity of 02:53:00 [facility] PHOSPHORUS 2019-10-27 Faustino Mason Ponce of 02:47:00 [facility] CREATINE KINASE 2019-10-27 Faustino Mason Ponce of 02:47:00 [facility] URIC ACID 2019-10-27 Faustino Mason Ponce of 02:47:00 [facility] LIPASE 2019-10-27 Faustino Mason Ponce of 02:47:00 [facility] MAGNESIUM 2019-10-27 Marlon [facility] of 02:47:00 [facility] FERRITIN SERUM 2019-10-27 Faustino Mason Ponce of 02:47:00 [facility] TROPONIN I 2019-10-27 Marlon [facility] of 02:47:00 [facility] HEPATIC FUNCTION PANEL ([id number]) 2019-10-27 Faustino Mason niversity of (ALB,T.PRO,BILI 02:47:00 [facility],BU/BC,ALT,AST,ALK PHOS) [place] BASIC METABOLIC PANEL (NA, K, CL, 2019-10-27 [facility] of CO2, GLUCOSE, BUN, CREATININE, CA) 02:47:00 [facility] LIPID PANEL ([id number])(TOTAL 2019-10-27 Marlon andrzej [facility] sity of CHOLESTEROL, TRIGLYCERIDES, HDL) 02:47:00 [facility] EKG-12 LEAD 2019-10-27 [facility] of 02:12:49 [facility] EKG-12 LEAD 2019-10-27 [facility] of 01:34:49 [facility] URIC ACID 2019-10-26 Faustino Mason Ponce of 20:20:00 [facility] IRON PANEL 2019-10-26 Marlon [facility] of 20:20:00 [facility] ASSIGNMENT OF BENEFITS 2019-10-26 Doctor Univers y of 19:55:10 Unassigned, No [facility] POCT GLUCOSE (AUTOMATED) 2019-10-01 Pritesh Baker Univer sity of 16:41:00 [facility] BASIC METABOLIC PANEL (NA, K, CL, 2019-10-01 Lauro Mcneil Ponce of CO2, GLUCOSE, BUN, CREATININE, CA) 12:53:00 [facility] POCT GLUCOSE (AUTOMATED) 2019-10-01 Pritesh Baker Univer sity of 12:18:00 [facility] POCT GLUCOSE (AUTOMATED) 2019-10-01 Pritesh Baker Univer sity of 01:51:00 [facility] POCT GLUCOSE (AUTOMATED) 2019-09-30 Pritesh Baker Univer sity of 21:28:00 [facility] POCT GLUCOSE (AUTOMATED) 2019-09-30 Pritesh Baker Univer sity of 16:51:00 [facility] [facility] POCT GLUCOSE (AUTOMATED) 2019-09-30 Pritesh Baker Univer sity of 12:41:00 [facility] OCCULT (GUAIAC) BLOOD 2019-09-30 [facility] of 09:00:00 [facility] MAGNESIUM 2019-09-30 [facility] of 08:25:00 [facility] BASIC METABOLIC PANEL (NA, K, CL, 2019-09-30 [facility], [facility] of CO2, GLUCOSE, BUN, CREATININE, CA) 08:25:00 [facility] CT THORAX WO CONTRAST 2019-09-30 [facility] of 02:53:31 [facility] URINALYSIS 2019-09-30 Brennan, [facility] of 02:28:00 [facility] EXTRA TUBE URINE CULTURE 2019-09-30 [facility] ity of 02:28:00 [facility] POCT GLUCOSE (AUTOMATED) 2019-09-30 Pritesh Baker [facility] sity of 01:26:00 [facility] XR CHEST 1 VW 2019-09-29 Anu [facility] of 22:13:05 [facility] XR FOOT 3+ VW RIGHT 2019-09-29 Brennan, [facility] of 22:13:05 [facility] TROPONIN I 2019-09-29 Brennan, [facility] of 21:57:00 [facility] HEPATIC FUNCTION PANEL ([id number]) 2019-09-29 BrennanChong denis niversity of (ALB,T.PRO,BILI 21:57:00 [facility],BU/BC,ALT,AST,ALK PHOS) [place] BASIC METABOLIC PANEL (NA, K, CL, 2019-09-29 Brennan, [facility] of CO2, GLUCOSE, BUN, CREATININE, CA) 21:57:00 [facility] CBC WITH DIFFERENTIAL 2019-09-29 Brennan, [facility] of 21:57:00 [facility] PROTHROMBIN TIME / INR 2019-09-29 [facility] 21:57:00 [facility] ACTIVATED PARTIAL THRMPLAS CARLTON 2019-09-29 Brennan, [facility] niversity of 21:57:00 [facility] N-TERMINAL PRO-BNP 2019-09-29 Brennan, [facility] of 21:57:00 [facility] EKG-12 LEAD 2019-09-29 Brennan, [facility] of 21:47:42 [facility] COMP. METABOLIC PANEL ([id number]) 2019-09-29 Igor Borrego Un iversity of 15:14:00 [facility] CBC WITH DIFFERENTIAL 2019-09-29 [facility] of 15:14:00 [facility] [place] XR CHEST 2 VW 2019-09-29 [facility] of 14:58:38 [facility] CONSENT/REFUSAL FOR DIAGNOSIS AND 2019-09-29 Doctor [facility] TREATMENT 14:13:28 Unassigned, No [facility] ASSIGNMENT OF BENEFITS 2019-09-29 Doctor [facility] y of 14:13:08 Unassigned, No [facility] REFERRAL OCCUPATIONAL THERAPY 2019-09-28 Gilberto Byrne Un iversity of 00:00:00 [facility] [B] CMP 2019-09-28 University of 00:00:00 [facility] [B] CBC 2019-09-28 University of 00:00:00 [facility] ASSIGNMENT OF BENEFITS 2019-09-21 Doctor [facility] of 18:05:04 Unassigned, No [facility] CONSENT/REFUSAL FOR DIAGNOSIS AND 2019-09-21 [facility] 18:03:13 Unassigned, No [facility] NOTICE OF BILLING PRACTICES FOR 2019-09-21 [facility] MEDICARE PATIENTS 18:02:38 Unassigned, No [facility] CONSENT TO PHOTOGRAPH 2019-09-21 [facility] of 05:01:00 Unassigned, No [facility] REFERRAL OCCUPATIONAL THERAPY 2019-09-21 Gilberto Byrne Un iversity of 00:00:00 [facility] XR CHEST 2 VW 2019-09-19 Servando Kwon [facility] 01:24:42 [facility] POCT GLUCOSE (AUTOMATED) 2019-09-15 Abu [facility], [facility] ity of 17:47:00 [facility] BASIC METABOLIC PANEL (NA, K, CL, 2019-09-15 Derrick Curiel [place] [address], GLUCOSE, BUN, CREATININE, CA) 16:59:00 [facility] CBC WITH DIFFERENTIAL 2019-09-15 [facility] 16:59:00 [facility] POCT GLUCOSE (AUTOMATED) 2019-09-15 Abu [facility], [facility] ity of 13:32:00 [facility] POCT GLUCOSE (AUTOMATED) 2019-09-15 Abu Atherah, Univers ity of 03:19:00 [facility] POCT GLUCOSE (AUTOMATED) 2019-09-14 Abu [facility], Univers ity of 22:25:00 [facility] POCT GLUCOSE (AUTOMATED) 2019-09-14 Abu [facility], Univers ity of 17:45:00 [facility] XR CHEST 1 VW 2019-09-14 [facility] of 13:58:44 [facility] POCT GLUCOSE (AUTOMATED) 2019-09-14 u [facility], Univers ity of 13:29:00 [facility] MAGNESIUM 2019-09-14 [facility] of 09:47:00 [facility] BASIC METABOLIC PANEL (NA, K, CL, 2019-09-14 [facility] of CO2, GLUCOSE, BUN, CREATININE, CA) 09:47:00 [facility] EXTRA TUBE LT. GREEN 2019-09-14 [facility] of 09:47:00 [facility] POCT GLUCOSE (AUTOMATED) 2019-09-14 u [facility], Univers ity of 08:10:00 [facility] POCT GLUCOSE (AUTOMATED) 2019-09-14 u [facility], Univers ity of 02:18:00 [facility] POCT GLUCOSE (AUTOMATED) 2019-09-13 [facility], Univers ity of 23:04:00 [facility] POCT GLUCOSE (AUTOMATED) 2019-09-13 [facility], Univers ity of 17:43:00 [facility] POCT GLUCOSE (AUTOMATED) 2019-09-13 [facility], Univers ity of 13:11:00 [facility] SPUTUM CULTURE 2019-09-13 [facility] of 12:07:00 [facility] MAGNESIUM 2019-09-13 [facility] of 09:51:00 [facility] BASIC METABOLIC PANEL (NA, K, CL, 2019-09-13 [facility] of CO2, GLUCOSE, BUN, CREATININE, CA) 09:51:00 [facility] CBC WITH DIFFERENTIAL 2019-09-13 [facility] of 09:51:00 [facility] POCT GLUCOSE (AUTOMATED) 2019-09-13 [facility], Univers ity of 02:18:00 [facility] MAGNESIUM 2019-09-13 [facility] of 00:05:00 [facility] TROPONIN I 2019-09-13 [facility] of 00:05:00 [facility] PROCALCITONIN 2019-09-13 [facility] of 00:05:00 [facility] POCT GLUCOSE (AUTOMATED) 2019-09-12 Abu Ather, Univers ity of 22:24:00 [facility] POCT GLUCOSE (AUTOMATED) 2019-09-12 Sang Leal ity of 19:31:00 [facility] ACTIVATED PARTIAL THRMPLAS CARLTON 2019-09-12 Sang Leal U niversity of 18:05:00 [facility] EKG-12 LEAD 2019-09-12 [facility] of 16:53:02 [facility] BLOOD CULTURE SCREEN 2019-09-12 Singer [facility] of 16:25:00 [facility] LACTIC ACID WHOLE BLOOD 2019-09-12 Sang Leali ty of 16:11:00 [facility] BLOOD CULTURE SCREEN 2019-09-12 Singer [facility] of 16:10:00 [facility] PROTHROMBIN TIME / INR 2019-09-12 Sang Lealit y of 15:45:00 [facility] CBC WITH DIFFERENTIAL 2019-09-12 Singer [facility] of 15:39:00 [facility] XR CHEST 1 VW 2019-09-12 Singer [facility] of 15:34:44 [facility] POCT GLUCOSE (AUTOMATED) 2019-09-12 Sang Leal ity of 15:24:00 [facility] LIPASE 2019-09-12 Singer [facility] of 15:21:00 [facility] MAGNESIUM 2019-09-12 Singer [facility] of 15:21:00 [facility] TROPONIN I 2019-09-12 Singer [facility] of 15:21:00 [facility] COMP. METABOLIC PANEL ([id number]) 2019-09-12 Sang Leal iversity of 15:21:00 [facility] N-TERMINAL PRO-BNP 2019-09-12 Singer [facility] of 15:21:00 [facility] EKG-12 LEAD 2019-09-12 Leal, [facility] of 15:17:38 [facility] EMERGENCY SERVICES AGREEMENTS AND 2019-09-12 [facility] of AUTHORIZATIONS 06:01:00 Unassigned, No [facility] POCT GLUCOSE (AUTOMATED) 2019-09-07 Alnas, Majd Univers ity of 18:10:00 [facility] POCT GLUCOSE (AUTOMATED) 2019-09-07 Alnas, Majd Univers ity of 14:24:00 [facility] POCT GLUCOSE (AUTOMATED) 2019-09-07 Alnas, Majd Univers ity of 02:48:00 [facility] POCT GLUCOSE (AUTOMATED) 2019-09-06 Alnas, Majd Univers ity of 23:24:00 [facility] POCT GLUCOSE (AUTOMATED) 2019-09-06 Alnas, Majd Univers ity of 18:22:00 [facility] POCT GLUCOSE (AUTOMATED) 2019-09-06 Alnas, Majd Univers ity of 13:58:00 [facility] PHOSPHORUS 2019-09-06 [facility] of 07:01:00 [facility] BASIC METABOLIC PANEL (NA, K, CL, 2019-09-06 [facility] of CO2, GLUCOSE, BUN, CREATININE, CA) 07:01:00 [facility] CBC WITH DIFFERENTIAL 2019-09-06 [facility] of 07:01:00 [facility] POCT GLUCOSE (AUTOMATED) 2019-09-06 Alnas, Majd Univers ity of 01:21:00 [facility] POCT GLUCOSE (AUTOMATED) 2019-09-05 Alnas, Majd Univers ity of 23:00:00 [facility] POCT GLUCOSE (AUTOMATED) 2019-09-05 Alnas, Majd Univers ity of 18:39:00 [facility] POCT GLUCOSE (AUTOMATED) 2019-09-05 Alnas, Majd Univers ity of 13:46:00 [facility] XR CHEST 1 VW 2019-09-05 [facility] 11:35:00 [facility] PHOSPHORUS 2019-09-05 [facility] 09:46:00 [facility] MAGNESIUM 2019-09-05 [facility] of 09:46:00 [facility] BASIC METABOLIC PANEL (NA, K, CL, 2019-09-05 [facility] of CO2, GLUCOSE, BUN, CREATININE, CA) 09:46:00 [facility] CBC WITH DIFFERENTIAL 2019-09-05 [facility] of 09:46:00 [facility] POCT GLUCOSE (AUTOMATED) 2019-09-05 Mario Lewis [facility] ity of 05:57:00 [facility] POCT GLUCOSE (AUTOMATED) 2019-09-05 Gris, Radheshyam Unive rsity of 03:18:00 [facility] POCT GLUCOSE (AUTOMATED) 2019-09-05 Gris, Radheshyam Unive rsity of 02:54:00 [facility] POCT GLUCOSE (AUTOMATED) 2019-09-04 Gris, Radheshyam Unive rsity of 22:13:00 [facility] POCT GLUCOSE (AUTOMATED) 2019-09-04 Gris, Radheshyam Unive rsity of 17:58:00 [facility] POCT GLUCOSE (AUTOMATED) 2019-09-04 Gris, Radheshyam Unive rsity of 14:17:00 [facility] IONIZED CALCIUM 2019-09-04 Bree [facility] of 12:48:00 [facility] EKG-12 LEAD 2019-09-04 [place], [facility] of 11:31:27 [facility] XR CHEST 1 VW 2019-09-04 [place], [facility] of 11:20:00 [facility] POCT GLUCOSE (AUTOMATED) 2019-09-04 Gris, Radheshyam Unive rsity of 10:48:00 [facility] MAGNESIUM 2019-09-04 Elmo [facility] of 10:45:00 [facility] BASIC METABOLIC PANEL (NA, K, CL, 2019-09-04 [facility] CO2, GLUCOSE, BUN, CREATININE, CA) 10:45:00 [facility] CBC WITH DIFFERENTIAL 2019-09-04 Elmo, [facility] of 10:45:00 [facility] POCT GLUCOSE (AUTOMATED) 2019-09-04 Gris, Radheshyam Unive rsity of 09:08:00 [facility] POCT GLUCOSE (AUTOMATED) 2019-09-04 Gris, Radheshyam Unive rsity of 05:33:00 [facility] POCT GLUCOSE (AUTOMATED) 2019-09-04 Gris, Radheshyam Unive rsity of 03:33:00 [facility] POCT GLUCOSE (AUTOMATED) 2019-09-04 Gris, Radheshyam Unive rsity of 01:47:00 [facility] POCT GLUCOSE (AUTOMATED) 2019-09-04 Gris, Radheshyam Unive rsity of 01:29:00 [facility] POCT GLUCOSE (AUTOMATED) 2019-09-03 Gris, Radheshyam Unive rsity of 23:26:00 [facility] XR CHEST 1 VW 2019-09-03 [place], [facility] of 22:20:00 [facility] POCT GLUCOSE (AUTOMATED) 2019-09-03 Gris, Radheshyam Unive rsity of 22:05:00 [facility] POCT GLUCOSE (AUTOMATED) 2019-09-03 Gris, Radheshyam Unive rsity of 17:27:00 [facility] POCT GLUCOSE (AUTOMATED) 2019-09-03 Gris, Radheshyam Unive rsity of 14:41:00 [facility] XR CHEST 1 VW 2019-09-03 [facility] 11:25:00 [facility] EKG-12 LEAD 2019-09-03 [place], [facility] 11:12:03 [facility] MAGNESIUM 2019-09-03 [facility] 09:41:00 [facility] BASIC METABOLIC PANEL (NA, K, CL, 2019-09-03 [facility] CO2, GLUCOSE, BUN, CREATININE, CA) 09:41:00 [facility] CBC WITH DIFFERENTIAL 2019-09-03 [facility] 09:40:00 [facility] POCT GLUCOSE (AUTOMATED) 2019-09-03 Gris, Radheshyam Unive rsity of 09:04:00 [facility] POCT GLUCOSE (AUTOMATED) 2019-09-03 Gris, Radheshyam Unive rsity of 06:01:00 [facility] POCT GLUCOSE (AUTOMATED) 2019-09-03 Gris, Radheshyam Unive rsity of 01:24:00 [facility] POCT GLUCOSE (AUTOMATED) 2019-09-02 Gris, Radheshyam Unive rsity of 22:05:00 [facility] POCT GLUCOSE (AUTOMATED) 2019-09-02 Megan Landry rsity of 18:41:00 [facility] POCT GLUCOSE (AUTOMATED) 2019-09-02 Megan Landry rsity of 13:45:00 [facility] XR CHEST 1 VW 2019-09-02 [facility] of 12:20:00 [facility] POCT GLUCOSE (AUTOMATED) 2019-09-02 Megan Landry rsity of 10:14:00 [facility] PHOSPHORUS 2019-09-02 [facility], [facility] of 07:23:00 [facility] MAGNESIUM 2019-09-02 [facility] of 07:23:00 [facility] HEPATIC FUNCTION PANEL ([id number]) 2019-09-02 Mario Lewis niversity of (ALB,T.PRO,BILI 07:23:00 [facility],BU/BC,ALT,AST,ALK PHOS) [place] BASIC METABOLIC PANEL (NA, K, CL, 2019-09-02 [facility] of CO2, GLUCOSE, BUN, CREATININE, CA) 07:23:00 [facility] PROFILE / HEMOGRAM 2019-09-02 [facility] of 07:23:00 [facility] ABG+COOX+NA+K+GLU+CA2+ 2019-09-02 [facility] y of 07:22:00 [facility] POCT GLUCOSE (AUTOMATED) 2019-09-02 Megan Landry rsity of 06:27:00 [facility] POCT GLUCOSE (AUTOMATED) 2019-09-02 Esther Landrycipriano Soto rsity of 05:03:00 [facility] AC PANEL 20 + LACTIC ACID 2019-09-02 [place], [facility] sity of 03:02:00 [facility] POCT GLUCOSE (AUTOMATED) 2019-09-02 Megan Landrye rsity of 01:18:00 [facility] POCT GLUCOSE (AUTOMATED) 2019-09-01 Esther Landrycipriano [facility] rsity of 23:54:00 [facility] PHOSPHORUS 2019-09-01 Elmo, [facility] of 23:32:00 [facility] MAGNESIUM 2019-09-01 Elmo, [employer] of 23:32:00 [facility] BASIC METABOLIC PANEL (NA, K, CL, 2019-09-01 Elmo, [facility] of CO2, GLUCOSE, BUN, CREATININE, CA) 23:32:00 [facility] ACTIVATED PARTIAL THRMPLAS CARLTON 2019-09-01 Elmo, [facility] U niversity of 23:32:00 [facility] ABG+COOX+NA+K+GLU+CA2+ 2019-09-01 [facility] y of 23:31:00 [facility] MRSA / MSSA SCREEN BY PCR, BRITNEY 2019-09-01 [facility] of 23:12:00 [facility] PREPARE PACKED RBC 2019-09-01 Elmo, [facility] of 20:58:25 [facility] PROTHROMBIN TIME / INR 2019-09-01 [place], [facility] y of 20:47:00 [facility] ACTIVATED PARTIAL THRMPLAS CARLTON 2019-09-01 [place], [facility] U niversity of 20:47:00 [facility] AC PANEL 20 + LACTIC ACID 2019-09-01 Elmo, [facility] sity of 20:47:00 [facility] TRANSFUSE PACKED RBC 2019-09-01 [place], [facility] of 20:35:41 [facility] POCT GLUCOSE (AUTOMATED) 2019-09-01 [facility] rs[facility] of 20:32:00 [facility] EKG-12 LEAD 2019-09-01 Elmo, [facility] of 20:01:09 [facility] XR CHEST 1 VW 2019-09-01 [facility] of 19:41:56 [facility] PHOSPHORUS 2019-09-01 [place], [facility] of 19:38:00 [facility] MAGNESIUM 2019-09-01 [place], [facility] of 19:38:00 [facility] BASIC METABOLIC PANEL (NA, K, CL, 2019-09-01 [facility] of CO2, GLUCOSE, BUN, CREATININE, CA) 19:38:00 [facility] CBC WITH DIFFERENTIAL 2019-09-01 [facility] of 19:38:00 [facility] ABG+COOX+NA+K+GLU+CA2+ 2019-09-01 [facility] y of 19:30:00 [facility] ISTAT ACUTE CARE ARTERIAL 2019-09-01 Gris, [facility] ersity of 17:59:00 [facility] POCT ACT HIGH RANGE 2019-09-01 Gris, [facility] of 17:56:00 [facility] TRANSFUSE PACKED RBC 2019-09-01 Domingo, [facility] of 17:32:38 [facility] ISTAT ACUTE CARE ARTERIAL 2019-09-01 Gris, [facility] ersity of 17:04:00 [facility] POCT ACT HIGH RANGE 2019-09-01 Gris, [facility] of 17:01:00 [facility] HEMOGLOBIN 2019-09-01 Domingo, [facility] of 16:58:00 [facility] HEMATOCRIT 2019-09-01 Domingo, [facility] of 16:58:00 [facility] PLATELET COUNT 2019-09-01 Domingo, [facility] of 16:58:00 [facility] PROTHROMBIN TIME / INR 2019-09-01 Domingo, [facility] ity of 16:58:00 [facility] ACTIVATED PARTIAL THRMPLAS CARLTON 2019-09-01 Domingo, [facility] of 16:58:00 [facility] FIBRINOGEN 2019-09-01 Domingo, [facility] of 16:58:00 [facility] ISTAT ACUTE CARE ARTERIAL 2019-09-01 Gris, [facility] ersity of 16:38:00 [facility] POCT ACT HIGH RANGE 2019-09-01 Gris, [facility] of 16:35:00 [facility] ISTAT ACUTE CARE ARTERIAL 2019-09-01 Gris, [facility] ersity of 16:07:00 [facility] POCT ACT HIGH RANGE 2019-09-01 Gris, [facility] of 16:05:00 [facility] ISTAT ACUTE CARE ARTERIAL 2019-09-01 Gris, [facility] ersity of 15:40:00 [facility] POCT ACT HIGH RANGE 2019-09-01 [facility], [facility] of 15:21:00 [facility] TRANSFUSE PACKED RBC 2019-09-01 Domingo, [facility] y of 15:15:20 [facility]SFUSE PACKED RBC 2019[facility]09[facility] 15:15:01 [facility] POCT ACT HIGH RANGE 2019-09-01 Gris, [facility] of 15:10:00 [facility] ISTAT ACUTE CARE ARTERIAL 2019-09-01 Gris, [facility] ersity of 15:03:00 [facility] POCT ACT HIGH RANGE 2019-09-01 [facility], [facility] of 15:00:00 [facility] PREPARE PACKED RBC 2019-09-01 [facility] of 14:20:50 [facility] TRANSFUSE PACKED RBC 2019-09-01 [facility] [place] y of 14:06:15 [facility] ISTAT ACUTE CARE ARTERIAL 2019-09-01 Gris, [facility] ersity of 13:58:00 [facility] POCT ACT HIGH RANGE 2019-09-01 [facility], [facility] of 13:55:00 [facility] PREPARE PACKED RBC 2019-09-01 [place] [facility] of 12:50:33 [facility] CORONARY ARTERY BYPASS GRAFT 2019-09-01 [place], [facility] versity of 12:35:00 [facility] EKG-12 LEAD 2019-09-01 [place], [facility] of 11:59:37 [facility] POCT GLUCOSE (AUTOMATED) 2019-09-01 [facility]is, [facility] of 11:28:00 [facility] POCT GLUCOSE (AUTOMATED) 2019-09-01 Gris, [facility] Unive rsity of 09:35:00 [facility] POCT GLUCOSE (AUTOMATED) 2019-09-01 Gris, [facility] rsity of 05:58:00 [facility] POCT GLUCOSE (AUTOMATED) 2019-09-01 Gris, Radheshyam Unive rsity of 02:15:00 [facility] POCT GLUCOSE (AUTOMATED) 2019-08-31 Gris, [facility] rsity of 22:11:00 [facility] HB ABO GROUPING 2019-08-31 [place] [facility] of 20:04:00 [facility] POCT GLUCOSE (AUTOMATED) 2019-08-31 Gris, Radhesam Unive rsity of 17:32:00 [facility] POCT GLUCOSE (AUTOMATED) 2019-08-31 Gris, Radheshyam Unive rsity of 13:38:00 [facility] POCT GLUCOSE (AUTOMATED) 2019-08-31 Gris, Radheshyam Unive rsity of 10:30:00 [facility] CBC WITH DIFFERENTIAL 2019-08-31 Pablo Curiel [facility] ty of 10:24:00 [facility] BASIC METABOLIC PANEL (NA, K, CL, 2019-08-31 Derrick Curiel [facility], GLUCOSE, BUN, CREATININE, CA) 10:23:00 [facility] POCT GLUCOSE (AUTOMATED) 2019-08-31 Gris, Radheshyam Unive rsity of 06:15:00 [facility] POCT GLUCOSE (AUTOMATED) 2019-08-31 Gris, Radheshyam Unive rsity of 02:07:00 [facility] POCT GLUCOSE (AUTOMATED) 2019-08-30 Gris, Radheshyam Unive rsity of 21:31:00 [facility] POCT GLUCOSE (AUTOMATED) 2019-08-30 Gris, Radheshyam Unive rsity of 17:45:00 [facility] POCT GLUCOSE (AUTOMATED) 2019-08-30 Gris, Radheshyam Unive rsity of 13:52:00 [facility] POCT GLUCOSE (AUTOMATED) 2019-08-30 Gris, Radheshyam Unive rsity of 11:02:00 [facility] POCT GLUCOSE (AUTOMATED) 2019-08-30 Gris, Radheshyam Unive rsity of 05:36:00 [facility] POCT GLUCOSE (AUTOMATED) 2019-08-30 Gris, Radheshyam Unive rsity of 03:26:00 [facility] POCT GLUCOSE (AUTOMATED) 2019-08-29 Gris, Radheshyam Unive rsity of 17:14:00 [facility] POCT GLUCOSE (AUTOMATED) 2019-08-29 Gris, Radheshyam Unive rsity of 13:44:00 [facility] POCT GLUCOSE (AUTOMATED) 2019-08-29 Gris, Radheshyam Unive rsity of 09:52:00 [facility] COMP. METABOLIC PANEL (39432) 2019-08-29 KempJadiel iversity of 09:43:00 [facility] POCT GLUCOSE (AUTOMATED) 2019-08-29 Gris, Radheshyam Unive rsity of 06:19:00 [facility] POCT GLUCOSE (AUTOMATED) 2019-08-29 Gris, Radheshyam Unive rsity of 03:44:00 [facility] US ABDOMEN LIMITED WITH DOPPLER 2019-08-28 Justo [facility] of 22:49:00 [facility] POCT GLUCOSE (AUTOMATED) 2019-08-28 Gris, Radheshyam Unive rsity of 21:32:00 [facility] POCT GLUCOSE (AUTOMATED) 2019-08-28 Gris, Radheshyam Unive rsity of 17:20:00 [facility] MAGNESIUM 2019-08-28 [facility] of 14:28:00 [facility] BASIC [facility]OLIC PANEL (NA, K, CL, 2019-08-28 [facility] of CO2, GLUCOSE, BUN, CREATININE, CA) 14:28:00 [facility] CBC WITH DIFFERENTIAL 2019-08-28 [facility] 14:28[facility]00 [facility] POCT GLUCOSE (AUTOMATED) 2019-08-28 Gris, Radheshyam Unive rsity of 13:25:00 [facility] POCT GLUCOSE (AUTOMATED) 2019-08-28 Gris, Radheshyam Unive rsity of 07:19:00 [facility] POCT GLUCOSE (AUTOMATED) 2019-08-28 Gris, Radheshyam Unive rsity of 03:00:00 [facility] POCT GLUCOSE (AUTOMATED) 2019-08-27 Gris, Radheshyam Unive rsity of 21:45:00 [facility] POCT GLUCOSE (AUTOMATED) 2019-08-27 Gris, Radheshyam Unive rsity of 17:51:00 [facility] CT THORAX WO CONTRAST 2019-08-27 Mara Cross [facility] of 16:53:12 [facility] POCT GLUCOSE (AUTOMATED) 2019-08-27 Gris, Radheshyam Unive rsity of 13:54:00 [facility] POCT GLUCOSE (AUTOMATED) 2019-08-27 Gris, Radheshyam Unive rsity of 10:34:00 [facility] POCT GLUCOSE (AUTOMATED) 2019-08-27 Gris, Radheshyam Unive rsity of 05:56:00 [facility] POCT GLUCOSE (AUTOMATED) 2019-08-27 Gris, Radheshyam Unive rsity of 04:11:00 [facility] POCT GLUCOSE (AUTOMATED) 2019-08-27 Gris, Radheshyam Unive rsity of 01:25:00 [facility] POCT GLUCOSE (AUTOMATED) 2019-08-26 Gris, Radheshyam Unive rsity of 23:42:00 [facility] POCT GLUCOSE (AUTOMATED) 2019-08-26 Gris, Radheshyam Unive rsity of 22:59:00 [facility] ACUTE CARE ARTERIAL BLOOD GAS 2019-08-26 Jadiel Kemp iversity of 20:19:00 [facility] BILATERAL VEIN MAPPING BY VASCULAR 2019-08-26 Jadiel Kemp [facility] of LAB 19:12:01 [facility] POCT GLUCOSE (AUTOMATED) 2019-08-26 Gris, Radheshyam Unive rsity of 18:06:00 [facility] POCT GLUCOSE (AUTOMATED) 2019-08-26 Gris, Radheshyam Unive rsity of 15:29:00 [facility] COLONOSCOPY (ENDO) 2019-08-26 Grzegorz Carpio [facility] o f 14:06:55 [facility] SURGICAL PATHOLOGY EXAM 2019-08-26 Marlo Osman [facility] ity of 13:44:00 [facility] COLONOSCOPY 2019-08-26 natividad [facility] of 13:20:00 [facility] ESOPHAGOGASTRODUODENOSCOPY 2019-08-26 Marlo henson [facility] ersity of 13:20:00 [facility] EGD (ENDO) 2019-08-26 Grzegorz Carpio [facility] of 12:37:08 [facility] POCT GLUCOSE (AUTOMATED) 2019-08-26 Gris, Radheshyam Unive rsity of 11:51:00 [facility] POCT GLUCOSE (AUTOMATED) 2019-08-25 Gris, Radheshyam Unive rsity of 21:37:00 [facility] POCT GLUCOSE (AUTOMATED) 2019-08-25 Gris, Radheshyam Unive rsity of 20:44:00 [facility] POCT GLUCOSE (AUTOMATED) 2019-08-25 Gris, Radheshyam Unive rsity of 20:43:00 [facility] POCT GLUCOSE (AUTOMATED) 2019-08-25 Gris, Radheshyam Unive rsity of 20:11:00 [facility] POCT GLUCOSE (AUTOMATED) 2019-08-25 Gris, Radheshyam Unive rsity of 19:43:00 [facility] POCT GLUCOSE (AUTOMATED) 2019-08-25 Gris, Radheshyam Unive rsity of 18:58:00 [facility] POCT GLUCOSE (AUTOMATED) 2019-08-25 Gris, Radheshyam Unive rsity of 18:36:00 [facility] POCT GLUCOSE (AUTOMATED) 2019-08-25 Gris, Radheshyam Unive rsity of 18:17:00 [facility] POCT GLUCOSE (AUTOMATED) 2019-08-25 Gris, Radheshyam Unive rsity of 18:10:00 [facility] POCT GLUCOSE (AUTOMATED) 2019-08-25 Gris, Radheshyam Unive rsity of 18:02:00 [facility] POCT GLUCOSE (AUTOMATED) 2019-08-25 Gris, Radheshyam Unive rsity of 17:56:00 [facility] BASIC METABOLIC PANEL (NA, K, CL, 2019-08-25 [facility] of CO2, GLUCOSE, BUN, CREATININE, CA) 10:41:00 [facility] CBC WITH DIFFERENTIAL 2019-08-25 [facility] 10:41[facility]00 [facility] XR KUB 2019-08-25 [facility] 04:48:36 [facility] POCT GLUCOSE (AUTOMATED) 2019-08-25 Harris Garza Univers ity of 02:02:00 [facility] POCT GLUCOSE (AUTOMATED) 2019-08-24 Harris Garza Univers ity of 22:18:00 [facility] POCT GLUCOSE (AUTOMATED) 2019-08-24 Harris Garza Univers ity of 18:17:00 [facility] POCT GLUCOSE (AUTOMATED) 2019-08-24 Harris Garza Univers ity of 13:57:00 [facility] BASIC METABOLIC PANEL (NA, K, CL, 2019-08-24 Maria Esther [facility] of CO2, GLUCOSE, BUN, CREATININE, CA) 12:02:00 [facility] CBC WITH DIFFERENTIAL 2019-08-24 [facility] of 12:02:00 [facility] POCT GLUCOSE (AUTOMATED) 2019-08-24 Kayla, Harris Univers ity of 10:27:00 [facility] POCT GLUCOSE (AUTOMATED) 2019-08-24 Davidah, Harris Univers ity of 05:43:00 [facility] POCT GLUCOSE (AUTOMATED) 2019-08-24 Kayla, Harris Univers ity of 01:53:00 [facility] POCT GLUCOSE (AUTOMATED) 2019-08-23 Davidah, Harris Univers ity of 23:06:00 [facility] IRON 2019-08-23 [facility] of 21:20:00 [facility] TOTAL IRON BINDING CAPACITY 2019-08-23 [facility] versity of 21:20:00 [facility] POCT GLUCOSE (AUTOMATED) 2019-08-23 Harris Garza Univers ity of 18:03:00 [facility] POCT GLUCOSE (AUTOMATED) 2019-08-23 Harris Garza Univers ity of 14:22:00 [facility] POCT GLUCOSE (AUTOMATED) 2019-08-23 Kayla, Harris Univers ity of 11:49:00 [facility] MAGNESIUM 2019-08-23 [facility] of 10:25:00 [facility] BASIC METABOLIC PANEL (NA, K, CL, 2019-08-23 [facility] of CO2, GLUCOSE, BUN, CREATININE, CA) 10:25:00 [facility] CBC WITH DIFFERENTIAL 2019-08-23 [facility] of 10:25:00 [facility] N-TERMINAL PRO-BNP 2019-08-23 [facility] 10:25[facility]00 [facility] POCT GLUCOSE (AUTOMATED) 2019-08-23 Kayla, Harris Univers ity of 06:21:00 [facility] POCT GLUCOSE (AUTOMATED) 2019-08-23 Kayla, Harris Univers ity of 01:52:00 [facility] POCT GLUCOSE (AUTOMATED) 2019-08-22 Davidah, Harris Univers ity of 23:30:00 [facility] POCT GLUCOSE (AUTOMATED) 2019-08-22 Abdullah, Harris Univers ity of 17:42:00 [facility] XR CHEST 1 VW 2019-08-22 [facility] of 10:25:58 [facility] POCT GLUCOSE (AUTOMATED) 2019-08-22 Harris Garza Univers ity of 09:59:00 [facility] CBC WITH DIFFERENTIAL 2019-08-22 [facility] of 08:01:00 [facility] MAGNESIUM 2019-08-22 [facility] of 08:00:00 [facility] BASIC METABOLIC PANEL (NA, K, CL, 2019-08-22 [facility] of CO2, GLUCOSE, BUN, CREATININE, CA) 08:00:00 [facility] N-TERMINAL PRO-BNP 2019-08-22 Rebekah Taylor [facility] of 08:00:00 [facility] POCT GLUCOSE (AUTOMATED) 2019-08-22 Harris Garza Univers ity of 06:01:00 [facility] POCT GLUCOSE (AUTOMATED) 2019-08-22 Harris Garza Univers ity of 03:04:00 [facility] CATH PROCEDURE LOG 2019-08-22 [facility] of 00:10:24 Unassigned, No [facility] POCT GLUCOSE (AUTOMATED) 2019-08-21 Harris Garza Univers ity of 22:39:00 [facility] POCT GLUCOSE (AUTOMATED) 2019-08-21 Harris Garza Univers ity of 18:30:00 [facility] POCT GLUCOSE (AUTOMATED) 2019-08-21 Harris Garza Univers ity of 13:53:00 [facility] POCT GLUCOSE (AUTOMATED) 2019-08-21 Harris Garza Univers ity of 10:01:00 [facility] MRSA / MSSA SCREEN BY PCR, BRITNEY 2019-08-21 [facility] of 08:04:00 [facility] BASIC METABOLIC PANEL (NA, K, CL, 2019-08-21 Faustino Mason [facility] of CO2, GLUCOSE, BUN, CREATININE, CA) 08:03:00 [facility] CBC WITH DIFFERENTIAL 2019-08-21 Faustino Mason [facility] of 08:03:00 [facility] N-TERMINAL PRO-BNP 2019-08-21 Marlon [facility] of 08:03:00 [facility] POCT GLUCOSE (AUTOMATED) 2019-08-21 Harris Garza Univers ity of 05:11:00 [facility] POCT GLUCOSE (AUTOMATED) 2019-08-21 Harris Garza Univers ity of 03:22:00 [facility] EKG-12 LEAD 2019-08-21 [facility], [facility] of 02:36:48 [facility] EKG-12 LEAD 2019-08-21 [facility] of 02:36:30 [facility] POCT GLUCOSE (AUTOMATED) 2019-08-20 Harris Garza Univers ity of 22:21:00 [facility] POCT GLUCOSE (AUTOMATED) 2019-08-20 Harris Garza Univers ity of 17:35:00 [facility] POCT GLUCOSE (AUTOMATED) 2019-08-20 Harris Garza [facility] ity of 13:40:00 [facility] URIC ACID 2019-08-20 Marlon [facility] of 09:36:00 [facility] TROPONIN I 2019-08-20 [facility] of 09:36:00 [facility] BASIC METABOLIC PANEL (NA, K, CL, 2019-08-20 [facility] of CO2, GLUCOSE, BUN, CREATININE, CA) 09:36:00 [facility] CBC WITH DIFFERENTIAL 2019-08-20 Marlon [facility] of 09:36:00 [facility] N-TERMINAL PRO-BNP 2019-08-20 [facility] of 09:36:00 [facility] POCT GLUCOSE (AUTOMATED) 2019-08-20 Harris Garza ity of 05:32:00 [facility] POCT GLUCOSE (AUTOMATED) 2019-08-20 Harris Garza [facility] ity of 02:20:00 [facility] VITAMIN B12, LEVEL 2019-08-19 Harris Garza of 22:59:00 [facility] FOLATE 2019-08-19 Harris Garza [facility] of 22:59:00 [facility] TROPONIN I 2019-08-19 Anika Cisneros [facility] of 22:59:00 Zuleyma [facility] IRON PANEL 2019-08-19 Harris Garza [facility] of 22:59:00 [facility] VITAMIN D, 25-OH 2019-08-19 Harris Garza [facility] of 22:59:00 [facility] POCT GLUCOSE (AUTOMATED) 2019-08-19 Harris Garza [facility] ity of 21:22:00 [facility] POCT GLUCOSE (AUTOMATED) 2019-08-19 DavidHarris [facility] ity of 16:58:00 [facility] ECHO ROUTINE W/DOPPLER COLOR 2019-08-19 Anika Cisneros [facility] versity of 14:58:29 [facility] POCT GLUCOSE (AUTOMATED) 2019-08-19 DavidHarris [facility] ity of 13:26:00 [facility] POCT GLUCOSE (AUTOMATED) 2019-08-[facility] of 09:58:00 [facility] PHOSPHORUS 2019-08-19 [facility], [facility] of 08:59:00 [facility] URIC ACID 2019-08-19 [facility], [facility] of 08:59:00 [facility] MAGNESIUM 2019-08-19 Marlon, [facility] of 08:59:00 [facility] FERRITIN SERUM 2019-08-[facility] of 08:59:00 [facility] TROPONIN I 2019-08-19 [facility], [facility] of 08:59:00 [facility] BASIC METABOLIC PANEL (NA, K, CL, 2019-08-19 [facility], [facility] of CO2, GLUCOSE, BUN, CREATININE, CA) 08:59:00 [facility] CBC WITH DIFFERENTIAL 2019-08-19 [facility] of 08:59:00 [facility] N-TERMINAL PRO-BNP 2019-08-19 [facility], [facility] of 08:59:00 [facility] POCT GLUCOSE (AUTOMATED) 2019-08-19 DavidHarris [facility] ity of 04:38:00 [facility] URIC ACID 2019-08-19 Marlon, [facility] of 02:15:00 [facility] LIPID PANEL ([id number])(TOTAL 2019-08-19 Anika Cisneros sity of CHOLESTEROL, TRIGLYCERIDES, HDL) 02:15:00 [facility] TROPONIN I 2019-08-19 Anika Cisneros [facility] of 02:14:00 [facility] POCT GLUCOSE (AUTOMATED) 2019-08-19 Harris Garza [facility] ity of 01:10:00 [facility] POCT GLUCOSE (AUTOMATED) 2019-08-18 MacieHarris mack [facility] ity of 23:31:00 [facility] XR CHEST 2 VW 2019-08-18 pelon [facility] of 20:56:25 [facility] LIPASE 2019-08-18 pelon, [facility] of 20:42:00 [facility] TROPONIN I 2019-08-18 [facility], [facility] of 20:42:00 [facility] THYROID STIMULATING HORMONE 2019-08-18 Blayne Anika [facility] ersity of 20:42:00 [facility] COMP. METABOLIC PANEL ([id number]) 2019-08-18 pelon, [facility] of 20:42:00 [facility] LIPID PANEL ([id number])(TOTAL 2019-08-18 [facility] of CHOLESTEROL, TRIGLYCERIDES, HDL) 20:42:00 [facility] CBC WITH DIFFERENTIAL 2019-08-18 [facility] of 20:42:00 [facility] GLYCOSYLATED HEMOGLOBIN (A1C) 2019-08-18 Anika Cisneros Un iversity of 20:42:00 [facility] PROTHROMBIN TIME / INR 2019-08-18 [facility] ity of 20:42:00 [facility] ACTIVATED PARTIAL THRMPLAS CARLTON 2019-08-18 [facility] of 20:42:00 [facility] N-TERMINAL PRO-BNP 2019-08-18 Shanae Barney [facility] of 20:42:00 [facility] EKG-12 LEAD 2019-08-18 [facility] of 20:32:11 [facility] EKG-12 LEAD 2019-08-18 [facility] of 20:31:05 [facility] NOTICE OF PRIVACY PRACTICES 2019-08-18 [facility] ersity of 20:23:50 Unassigned, No [facility] CONSENT/REFUSAL FOR DIAGNOSIS AND 2019-08-18 [facility] of TREATMENT 20:23:39 Unassigned, No [facility] ASSIGNMENT OF BENEFITS 2019-08-18 Doctor [facility] of 20:23:13 Unassigned, No [facility] HOSPITAL ADMISSION 2019-08-18 [facility] of 06:01:00 Unassigned, No [facility] History of Cyst excision [facility] Physicians History of Debridement [facility] [place] [facility] History of Hand Surgery Univers ty [facility] History of Knee [facility]rosc[facility] History of University of Esophagogastroduodenoscopy [place] [facility] History of Colonoscopy [facility] [place] [facility] History of Surgical removal of U niversity of foreign body [place] [facility] History of CABG University [facility] Encounters Start End Encounter Admission Attending Care Care Encounter Source Date/Time Date/Time Type Type Clinicians Facility Department ID 2021-05-14 Inpatient U TEREZA [facility] [id number] Univers 12:00:24 VONDA ity [facility] 2021-05-12 Emergency [facility] [id number] Univers 23:59:53 ity [facility] 2021-05-11 Emergency [facility] [id number] Univers 17:53:57 ity [facility] 2021-05-11 Emergency [facility] [id number] Univers 14:51:33 ity [facility] 2021-05-11 Emergency [facility] [id number] Univers 13:07:11 ity [facility] 2021-05-11 Emergency [facility] [id number] Univers [facility]18 Inpatient X GRIS [facility] [id number] Univers 14:20:52 RADHESHYAM [facility] 2021-04-12 2021-04-12 Refjesse [facility] [id number] Univers 00:00:00 00:00:00 Derrick PRIMARY [id number] it [phone] [address] 2020-12-27 2020-12-27 Refill [facility] [id number] Univers 00:00:00 00:00:00 Derrick PRIMARY [id number] it y [id number] [phone] [address] 2020-12-27 2020-12-27 Refill [facility] [id number] 00:00:00 00:00:00 [facility] [id number] CARE [id number] PAVILLION [phone] 389 2020-12-16 2020-12-16 Orders Doctor ALPHONSE [id number] Univers 00:00:00 00:00:00 Only Unassigned, LINK [id number] ity of [place] [facility] [id number] You as [id number] [facility] [address] 2020-12-16 2020-12-16 Orders Doctor ALPHONSE [id number] 00:00:00 00:00:00 Only Unassigned, LINK [id number] [place] [facility] [id number] 2020-11-30 2020-11-30 Patient Jatin Douglas [id number] Univers 00:00:00 00:00:00 Outreach Hugh Tejeda Mcnally [id number] [id number] [phone] [facility] [address] 2020-11-30 2020-11-30 Patient Jatin Douglas [id number] 00:00:00 00:00:00 Outreach Hugh Mcnally [id number] [place] [id number] 403 2020-11-22 2020-11-22 ALPHONSE Lopez [id number] Univers 00:00:00 00:00:00 Triage Liane MAZA [id number] i ty of HOSPITAL [id number] You as [phone] [facility] [address] 2020-11-22 2020-11-22 Nurse ALPHONSE Villareal [id number] 00:00:00 00:00:00 Triage Liane MAZA [id number] HOSPITAL [id number] [id number] 2020-11-16 2020-11-16 Orders Doctor ALPHONSE [id number] Univers 00:00:00 00:00:00 Only Unassigned, LINK [id number] ity of [place] [facility] [id number] You as [phone] [facility] [address] 2020-11-16 2020-11-16 Orders Doctor ALPHONSE [id number] 00:00:00 00:00:00 Only Unassigned, LINK [id number] [place] [facility] [id number] [id number] 2020-11-11 2020-11-11 Telephone Parks, [facility] [id number] [facility] 00:00:00 00:00:00 Derrick PRIMARY [id number] it y [id number] [phone] [address] 2020-11-11 2020-11-11 Telephone [facility] [id number] 00:00:00 00:00:00 Derrick PRIMARY [id number] CARE [id number] PAVILLION [phone] 389 2020-11-10 2020-11-10 Transition Jatin Campbell [id number] Univers 00:00:00 00:00:00 of Care Nathalia Mcnally [id number] [id number] [phone] [facility] [address] 2020-11-10 2020-11-10 [facility] [id number] Univers 00:00:00 00:00:00 Haris PRIMARY [id number] it y [id number] [phone] [address] 2020-11-10 2020-11-10 Transition Jatin Campbell [id number] 00:00:00 00:00:00 of Care Nathalia Mcnally 350.1.13.10 [place] 4.2.7.2.686 [id number] [id number] 2020-11-10 2020-11-10 [facility] 1.2.840.114 [id number] 82 00:00:00 00:00:00 Haris PRIMARY 350.1.13.10 Scott CARE 4.2.7.2.686 PAVILLION [id number] [id number] 2020-10-22 2020-11-09 [facility] Vonda Starks Kaycee 1.2.840.1 14 [id number] Univers 06:28:00 18:56:00 Encounter Antonio Villay 350.1.13.10 ity of [facility] 4.2.7 .2.686 David Oviedo [phone] Medical Haris Sullivan [place] [address] 2020-08-02 2020-08-02 Letter Blanca CUNHA 1.2.840.114 [id number] Univers 00:00:00 00:00:00 (Out) , LINK 350.1.13.10 it y of [facility] 4.2.7.2.686 [facility] [phone] [facility] 0[address] 2020-07-04 2020-07-04 Orders Doctor ALPHONSE 1.2.840.114 [id number] Univers 00:00:00 00:00:00 Only Unassigned, LINK 350.1.13.10 ity of [place] [facility] 4.2.7.2.686 [facility] [phone] [facility] 00[address] 2020-05-03 2020-05-03 Emergency [facility] 1.2.840.114 [id number] Univers 14:26:00 16:25:00 Christa Isaac 350.1.13.10 ity of [place] 4.2.7.2.686 [facility] [phone] [facility] 0[address] 2020-05-03 2020-05-03 Orders Doctor CUNHA 1.2.840.114 [id number] Univers 00:00:00 00:00:00 Only Unassigned, LINK 350.1.13.10 ity of [place] [facility] 4.2.7.2.686 You as [phone] [place] [address] [address] 2020-05-03 2020-05-03 Patient Jatin Douglas 1.2.840.114 [id number] Univers 00:00:00 00:00:00 Outreach Hugh Tejeda Mcnally 350.1.13.10 [place] [phone] [address] 2020-02-05 2020-02-05 Patient Trupti Ahn Jatin 1.2.840.114 [id number] Univers 00:00:00 00:00:00 Outreach E Mcnally 350.1.13.10 [place] [phone] [address] 2020-01-28 2020-01-28 Patient Trupti Ahn Jatin 1.2.840.114 [id number] Univers 00:00:00 00:00:00 Outreach E Mcnally 350.1.13.10 [place] [phone] [address] 2020-01-18 2020-01-18 Patient Jatin Douglas 1.2.840.114 [id number] Univers 00:00:00 00:00:00 Outreach Hugh Tejeda Mcnally 350.1.13.10 [place] [id number] [address] 2020-01-08 2020-01-08 Patient Jatin Douglas 1.2.840.114 [id number] Univers 00:00:00 00:00:00 Outreach Hugh Tejeda Mcnally 350.1.13.10 [place] [id number] [address] 2020-01-07 2020-01-07 Patient Trupti Ahn Jatin 1.2.840.114 [id number] Univers 00:00:00 00:00:00 Outreach E Mcnally 350.1.13.10 [place] [id number] [address] 2019-12-22 2019-12-22 Patient Trupti Ahn 1.2.840.114 76 [id number] Univers 00:00:00 00:00:00 Outreach E Mcnally 350.1.13.10 [place] [id number] [address] 2019-12-16 2019-12-16 Patient Trupti Ahn 1.2.840.114 75 [id number] Univers 00:00:00 00:00:00 Outreach E Mcnally 350.1.13.10 [place] [id number] [address] 2019-12-11 2019-12-11 Patient Jatin Douglas 1.2.840.114 [id number] Univers 00:00:00 00:00:00 Outreach Hugh Whitey 350.1.13.10 it[place] [phone] [address] 2019-12-10 2019-12-10 Patient Jatin Douglas 1.2.840.114 [id number] Univers 00:00:00 00:00:00 Outreach Hugh W Mcnally 350.1.13.10 [place] [phone] [address] 2019-12-03 2019-12-03 Patient Jatin Douglas 1.2.840.114 [id number] Univers 00:00:00 00:00:00 Outreach Hugh W Mcnally 350.1.13.10 [place] [id number] [address] 2019-12-02 2019-12-02 Patient Trupti Ahn 1.2.840.114 75 [id number] Univers 00:00:00 00:00:00 Outreach E Mcnally 350.1.13.10 [place] [phone] [address] 2019-12-01 2019-12-01 Patient Jatin Douglas 1.2.840.114 [id number] Univers 00:00:00 00:00:00 Outreach Hugh W Mcnally 350.1.13.10 [place] [phone] [address] 2019-11-26 2019-11-26 Patient Jatin Douglas 1.2.840.114 [id number] Univers 00:00:00 00:00:00 Outreach Huhg Whitey 350.1.13.10 it[place] [phone] [address] 2019-11-25 2019-11-25 Patient Trupti Ahn 1.2.840.114 75 [id number] Univers 16:38:53 16:38:57 Outreach E Mcnally 350.1.13.10 [place] [phone] [address] 2019-11-25 2019-11-25 Outpatient [facility] [id number] -[id number] Univers 12:00:00 12:00:00 [id number] ity of [facility] 2019-11-20 2019-11-20 Patient Trupti Ahn 1.2.840.114 [id number] Univers 00:00:00 00:00:00 Outreach E Mcnally 350.1.13.10 [place] [id number] [address] 2019-11-16 2019-11-16 Orders Doctor ALPHONSE 1.2.840.114 [id number] Univers 00:00:00 00:00:00 Only Unassigned, LINK 350.1.13.10 ity of [place] [facility] 4.2.7.2.686 You as [phone] [place] [address] [address] 2019-11-11 2019-11-11 Patient Jatin Douglas 1.2.840.114 [id number] Univers 00:00:00 00:00:00 Outreach Hugh Whitey 350.1.13.10 [place] [id number] [address] 2019-11-03 2019-11-03 Patient Trupti Ahn 1.2.840.114 [id number] Univers 00:00:00 00:00:00 Outreach E Mcnally 350.1.13.10 i [place] [phone] [facility] [address] 2019-11-02 2019-11-02 Patient Trupti Ahn 1.2.840.114 75 [id number] Univers 00:00:00 00:00:00 Outreach E Mcnally 350.1.13.10 i ty [place] [phone] [place] [address] [address] 2019-10-30 2019-10-30 Patient Trupti Ahn 1.2.840.114 75 [id number] Univers 00:00:00 00:00:00 Outreach E Mcnally 350.1.13.10 [place] [id number] [address] 2019-10-29 2019-10-29 [facility] Devlin Kaycee 1.2.353.192 [id number] Univers 11:46:00 23:59:00 Encounter Segun Maza 350.1.13.10 ity of [facility] 4.2.7.2.686 You as [phone] [address] 2019-10-29 2019-10-29 Outpatient R [facility] [id number] -[id number] Univers 12:30:00 12:30:00 [id number] ity of [facility] 2019-10-29 2019-10-29 [facility] [id number] Univers 12:30:00 12:30:00 SEGUN itvirgilio of [facility] 2019-10-29 2019-10-29 Transition Jatin Navarrete 1.2.840.114 [id number] Univers 00:00:00 00:00:00 of Care Lucia Whitey 350.1.13.10 [place] [phone] [place] [address] [address] 2019-10-26 2019-10-28 [facility] KarennixonkatelynnAisha [facility] 1.2.840. 114 [id number] Univers 20:13:39 12:05:00 Encounter Faustino Mason 350.1.13.10 ity of [place] [phone] Medi lizzy [address] 2019-10-28 2019-10-28 Telephone [facility] 1.2.547.325 [id number] Univers 00:00:00 00:00:00 Mara Isaac 350.1.13.10 ity of [place] Profess[place] [phone] Ut dical nal 059 [facility] 2019-10-27 2019-10-27 Telephone [facility] 1.2.873.202 [id number] Univers 00:00:00 00:00:00 [facility] 350.1.13.10 i ty of [place] 4.2.7.2.686 You as Professio [phone] Ut dical nal 044 [facility] One 2019-10-19 2019-10-26 Telemedici [facility] 1.2.840.114 [id number] Univers 10:08:07 17:02:04 ne Visit Chellymaximclark Isaac 350.1.13.10 ity of [place] Profess[place] [phone] Ut dical nal 059 [facility] 2019-10-26 2019-10-26 Surface Plate Inspector Shaka, Melissa Lab Main [facility] 1.2.8 40.114 [id number] Univers 14:57:39 15:12:39 Visit Mara Cross 350.1.13.10 ity of [place] [phone] Ut dical nal 353 [facility] 2019-10-26 2019-10-26 Outpatient O [facility] [id number] -20 Univers 15:00:00 15:00:00 MARA [id number] ity o f [facility] 2019-10-26 2019-10-26 Outpatient R [facility] [id number] Univers 11:15:00 11:15:00 MARA ity o f [facility] 2019-10-26 2019-10-26 Orders Doctor ALPHONSE 1.2.840.114 [id number] Univers 00:00:00 00:00:00 Only Unassigned, LINK 350.1.13.10 ity of [place] [facility] 4.2.7.2.686 You as [phone] [facility] [address] 2019-10-19 2019-10-19 Outpatient O TAY, [facility] [id number] -[id number] Univers 14:40:00 14:40:00 MARA [id number] ity o f [facility] 2019-10-19 2019-10-19 Outpatient O [facility] [id number] Univers 14:40:00 14:40:00 MARA ity o f [facility] 2019-10-19 2019-10-19 Telephone [facility] 1.2.900.181 [id number] Univers 00:00:00 00:00:00 Mara Isaac 350.1.13.10 it[place] [phone] [facility] 059 [facility] 2019-10-12 2019-10-12 Hospital Renny Ashley 1.2.840.114 [id number] Univers 12:30:00 23:59:00 Encounter Segun Devlin 350.1 .13.10 ity of [facility] 4.2.7.2.686 You as [phone] [facility] [address] 2019-10-12 2019-10-12 Outpatient [facility] [id number] -20 Univers 12:30:00 12:30:00 [id number] ity of [facility] 2019-10-12 2019-10-12 Outpatient [facility] [id number] Univers 12:30:00 12:30:00 RENNY ity of [facility] 2019-09-29 2019-10-01 Emergency Chong Brennan [facility] 1.2.840.1 14 [id number] Univers 16:30:29 18:09:00 Pritesh Baker [facility] 350.1.13.10 it[place] of [place] [phone] [facility] [address] ([facility]) 2019-09-29 2019-09-29 [facility] Igor Borrego [facility] 1.2.840.114 [id number] Univers 09:00:00 16:29:00 Encounter Marlin 350.1.13.10 ity [facility] 4.2.7.2.686 [facility] [phone] [facility] [address] 2019-09-29 2019-09-29 Appointmen ELMO [facility] [id number] Univers 15:00:00 15:00:00 t; IGOR BORREGO M.D. Advanced ity of Arabella COSTA M.D. Failure - Physic i [facility] 2019-09-29 2019-09-29 Surface Plate Inspector 1, Adc Lab [facility] 1.2.840.114 [id number] Univers 09:30:09 09:45:09 Visit Igor Borrego 350.1.13.10 ity [facility] 4.2.7.2.686 [facility] [id number] [facility] [address] 2019-09-29 2019-09-29 Outpatient R IGOR BORREGO [facility] [id number] [id number] Univers 09:00:00 09:00:00 [id number] ity [facility] 2019-09-29 2019-09-29 Outpatient R IGOR BORREGO [facility] [id number] Univers 09:00:00 09:00:00 ity [facility] 2019-09-28 2019-09-28 [facility] Segun Devlin 1. 2.840.114 [id number] Univers 12:30:00 23:59:00 Encounter Renny Ashley 350.1.13.10 ity [facility] 4.2.7.2.686 You as [phone] [facility] [address] 2019-09-28 2019-09-28 Ancillary Room, Maureen-Occup Therapy Tub Luda 1.2.840.114 [id number] Univers 16:08:34 16:38:34 Visit Renny Ashley 350.1.13.10 ity of [facility] 4.2.7.2.686 You as [phone] [facility] [address] 2019-09-28 2019-09-28 Outpatient R [facility] [id number] -[id number] Univers 12:30:00 12:30:00 [id number] ity [facility] 2019-09-28 2019-09-28 [facility]patient [facility] [id number] Univers 12:30:00 12:30:00 [facility] 2019-09-22 2019-09-22 Ancillary Room, Maureen-Occup Therapy Tub Luda ie 1.2.840.114 [id number] Univers 16:28:15 17:13:15 Visit Segun Devlin 350.1.1 3.10 ity of [facility] 4.2.7.2.686 You as [phone] [facility] [address] 2019-09-21 2019-09-21 [facility] Kaycee Devlin 1.2.686.226 [id number] Univers 12:30:00 23:59:00 Encounter Segun Link 350.1.13.10 ity of [facility] 4.2.7.2.686 You as [phone] [facility] [address] 2019-09-21 2019-09-21 Outpatient R [facility] [id number] -[id number] Univers 12:30:00 12:30:00 [id number] [facility] 2019-09-21 2019-09-21 [facility]patient [facility] [id number] Univers 12:30:00 12:30:00 [facility] 2019-09-21 2019-09-21 Outpatient [facility] [id number] Univers 08:45:00 08:45:00 [facility] 2019-09-18 2019-09-18 Emergency [facility] 1.2.769.610 [id number] Univers 17:58:06 20:49:00 Servando Isaac 350.1.13.10 i ty [place] [phone] [facility] [address] 2019-09-12 2019-09-15 [facility] Sang Leal [facility] 1.2.840.1 14 [id number] Univers 09:17:22 13:30:00 Encounter Yohan Valderrama [facility] 350.1.13. 10 ity of [place] [phone] [facility] [address] (CLC) 2019-09-10 2019-09-10 Patient Trupti Ahn 1.2.840.114 [id number] Univers 00:00:00 00:00:00 Outreach Vee Whitey 350.1.13.10 i ty [place] [id number] [facility] [address] 2019-09-08 2019-09-08 Transition Jatin Navarrete 1.2.840.114 [id number] Univers 00:00:00 00:00:00 of Care Lucia Whitey 350.1.13.10 it[place] [phone] [facility] [address] 2019-08-18 2019-09-07 Hospital Shanae Barney [facility] 1.2.840.1 14 [id number] Univers 14:20:52 14:10:00 Encounter Kayla [facility] 350.1.13.10 ity of [facility] 4.2.7.2.686 [facility] [place] [phone] [facility] [address] (CLC) Results Test Description Test Time Test Comments Results Result Comments Source POCT GLUCOSE (AUTOMATED) 2020-11-09 16:51:02 Test Item Value Reference Range Interpretation Comme nts POCT GLU (test code = 8567304719) 177 mg/dL 70-110 H Lab Interpretation (test code = 24919-1) [facility]2020-11-09 16:51:02 Test Item Value Reference Range Interpretation Comments POCT GLU (test code = 4634909349) 177 mg/dL 70-110 H Lab Interpretation (test code = Abnormal 31559-6) [facility] [id number] 12:33:06 Test Item Value Reference Range Interpretation Comments WBC (test code = 6690-2) See_Comment [A utomated message] The system [employer] generated this result transmit tennille reference range : 4.20 - 10.70 10*3/?L. The reference range was not used to interpret this result as normal/abnormal . RBC (test code = 789-8) See_Comment L [Au tomated message] The system [employer] generated this result transmit tennille reference range : 4.26 - 5.52 10* 6/?L. The reference r christine was not used to interpret this result as normal/abnormal . HGB (test code = 718-7) 7.3 g/dL 12.2-16.4 L HCT (test code = 4544-3) 23.9 % 38.4-49.3 L MCH (test code = 785-6) 24.8 pg 26.1-32.7 L MCV (test code = 787-2) 81.3 fL 81.7-95.6 L MCHC (test code = 786-4) 30.5 g/dL 31.2-35.0 L PLT (test code = 777-3) See_Comment [Au tomated message] The system [facility] generated this result transmit tennille reference range : 150 - 328 10*3/?L. The reference range was not used to interpret this result as normal/abnormal . MPV (test code = 12.5 fL 9.8-13.0 06439-6) RDW-CV (test code = 22.8 % 12.1-15.4 H 788-0) RDW-SD (test code = 64.1 fL 38.5-51.6 H 96149-1) NRBC x10^3 (test code = <0.01 See_Comment [Au tomated message] 4684201743) The system [employer] generated this result transmit tennille reference range : 10*3/?L. The reference range was not used to interpret this result as normal/abnormal . NRBC/100 WBC (test code See_Comment [Au tomated message] = 4234024811) The system [facility] generated this result transmit tennille reference range : 0.0 - 10.0 /100 WBC s. The reference r christine was not used to interpret this result as normal/abnormal . IPF % (test code = 7203443949) Lab Interpretation (test Abnormal code = 75898-2) [facility] WITHOUT [id number] 12:33:06 Test Item Value Reference Range Interpretation Comments WBC (test code = 6690-2) See_Comment [A utomated message] The system [facility] generated this result transmit tennille reference range : 4.20 - 10.70 10*3/?L. The reference range was not used to interpret this result as normal/abnormal . RBC (test code = 789-8) See_Comment L [Au tomated message] The system [employer] generated this result transmit tennille reference range : 4.26 - 5.52 10* 6/?L. The reference r christine was not used to interpret this result as normal/abnormal . HGB (test code = 718-7) 7.3 g/dL 12.2-16.4 L HCT (test code = 4544-3) 23.9 % 38.4-49.3 L MCH (test code = 785-6) 24.8 pg 26.1-32.7 L MCV (test code = 787-2) 81.3 fL 81.7-95.6 L MCHC (test code = 786-4) 30.5 g/dL 31.2-35.0 L PLT (test code = 777-3) See_Comment [Au tomated message] The system [employer] generated this result transmit tennille reference range : 150 - 328 10*3/?L. The reference range was not used to interpret this result as normal/abnormal . MPV (test code = 12.5 fL 9.8-13.0 47065-3) RDW-CV (test code = 22.8 % 12.1-15.4 H 788-0) RDW-SD (test code = 64.1 fL 38.5-51.6 H 06456-1) NRBC x10^3 (test code = <0.01 See_Comment [Au tomated message] 5754874290) The system [employer] generated this result transmit tennille reference range : 10*3/?L. The reference range was not used to interpret this result as normal/abnormal . NRBC/100 WBC (test code See_Comment [Au tomated message] = 6808216322) The system [facility] generated this result transmit tennille reference range : 0.0 - 10.0 /100 WBC s. The reference r christine was not used to interpret this result as normal/abnormal . IPF % (test code = 6427391408) Lab Interpretation (test Abnormal code = 63119-8) [facility] 12[facility]23[facility]25 Test Item Value Reference Range Interpretation Comments MAGNESIUM (test code = 5170447978) 2.7 mg/dL 1.7-2.4 H Lab Interpretation (test code = Abnormal 29212-3) [facility] (NA, K, CL, CO2, GLUCOSE, BUN, CREATININE, CA)2020-11-09 12:23:25 Test Item Value Reference Range Interpretation Comments NA (test code = 146 mmol/L 135-145 H 4807033816) K (test code = 4.0 mmol/L 3.5-5.0 2896490921) CL (test code = 110 mmol/L 98-108 H 4194209965) CO2 TOTAL (test code = 31 mmol/L 23-31 5966586430) AGAP (test code = 2-16 3912513110) BUN (test code = 49 mg/dL 7-23 H 6572701833) GLUCOSE (test code = 114 mg/dL 70-110 H 3513654952) CREATININE (test code = 1.23 mg/dL 0.60-1.25 7204624220) CALCIUM (test code = 7.8 mg/dL 8.6-10.6 L 6460622752) eGFR (test code = mL/min/1.73m2 9079313261) JUAN LUIS (test code = JUAN LUIS) Association of Glomerular Filtration Rate (GFR) and Staging of Kidney Disease* + --+ --+ ------+| GFR (mL/min/1.73 m2) ?| With Kidney Damage ?| ?Without Kidney Damage+ --------+ --------+ +| ?>90 ?| ?Stage one ?| ? Normal ?+ ---+ ---+ -------+| ?60-89 ?| ?Stage two ?| ? Decreased GFR ? + --+ --+ ------+| ?30-59 ?| ?Stage three ?| ? Stage three ? + --+ --+ ------+| ?15-29 ?| ?Stage four ? | ? Stage four ?+ ---+ ---+ -------+| ?<15 (or dialysis) ? ?| ?Stage five ? | ? Stage five ?+ ---+ ---+ -------+ *Each stage assumes the associated GFR level has been in effect for at least three months. ?Stages 1 to 5, with or without kidney disease, indicate chronic kidney disease. Notes: Determination of stages one and two (with eGFR >59mL/min/1.73 m2) requires estimation of kidney damage for at least three months as defined by structural or functional abnormalities of the kidney, manifested by either:Pathological abnormalities or Markers of kidney damage (including abnormalities in the composition of the blood or urine or abnormalities in imaging tests). Lab Interpretation Abnormal (test code = 88755-5) [facility] METABOLIC PANEL (NA, K, CL, CO2, GLUCOSE, BUN, CREATININE, CA)2020-11-09 12:23:25 Test Item Value Reference Range Interpretation Comments NA (test code = 146 mmol/L 135-145 H 4862167539) K (test code = 4.0 mmol/L 3.5-5.0 5943766589) CL (test code = 110 mmol/L 98-108 H 3710982855) CO2 TOTAL (test code = 31 mmol/L 23-31 7087522735) AGAP (test code = 2-16 4994217730) BUN (test code = 49 mg/dL 7-23 H 9045067860) GLUCOSE (test code = 114 mg/dL 70-110 H 1100069374) CREATININE (test code = 1.23 mg/dL 0.60-1.25 3668019318) CALCIUM (test code = 7.8 mg/dL 8.6-10.6 L 5815102845) eGFR (test code = mL/min/1.73m2 6997769826) JUAN LUIS (test code = JUAN LUIS) Association of Glomerular Filtration Rate (GFR) and Staging of Kidney Disease* + --+ --+ ------+| GFR (mL/min/1.73 m2) ?| With Kidney Damage ?| ?Without Kidney Damage+ --------+ --------+ +| ?>90 ?| ?Stage one ?| ? Normal ?+ ---+ ---+ -------+| ?60-89 ?| ?Stage two ?| ? Decreased GFR ? + --+ --+ ------+| ?30-59 ?| ?Stage three ?| ? Stage three ? + --+ --+ ------+| ?15-29 ?| ?Stage four ? | ? Stage four ?+ ---+ ---+ -------+| ?<15 (or dialysis) ? ?| ?Stage five ? | ? Stage five ?+ ---+ ---+ -------+ *Each stage assumes the associated GFR level has been in effect for at least three months. ?Stages 1 to 5, with or without kidney disease, indicate chronic kidney disease. Notes: Determination of stages one and two (with eGFR >59mL/min/1.73 m2) requires estimation of kidney damage for at least three months as defined by structural or functional abnormalities of the kidney, manifested by either:Pathological abnormalities or Markers of kidney damage (including abnormalities in the composition of the blood or urine or abnormalities in imaging tests). Lab Interpretation Abnormal (test code = 98203-5) [facility] 12:23:25 Test Item Value Reference Range Interpretation Comments MAGNESIUM (test code = 0489023555) 2.7 mg/dL 1.7-2.4 H Lab Interpretation (test code = Abnormal 45226-7) [facility] GLUCOSE (AUTOMATED)2020-11-09 10:56:45 Test Item Value Reference Range Interpretation Comments POCT GLU (test code = 4633962436) 129 mg/dL 70-110 H Lab Interpretation (test code = Abnormal 94177-8) [facility] GLUCOSE (AUTOMATED)2020-11-09 05:24:07 Test Item Value Reference Range Interpretation Comments POCT GLU (test code = 7574504958) 203 mg/dL 70-110 H Lab Interpretation (test code = Abnormal 84442-6) [facility] GLUCOSE (AUTOMATED)2020-11-08 23:23:05 Test Item Value Reference Range Interpretation Comments POCT GLU (test code = 6860802711) 238 mg/dL 70-110 H Lab Interpretation (test code = Abnormal 48294-9) [facility] GLUCOSE (AUTOMATED)2020-11-08 15:48:22 Test Item Value Reference Range Interpretation Comments POCT GLU (test code = 6382913265) 193 mg/dL 70-110 H Lab Interpretation (test code = Abnormal 89086-9) [facility] THORAX W [id number] 14:45:56 1. ?Multifocal mixed attenuation opacities and diffuse centrilobulargroundglass nodules present throughout all lobes of the lung with relativesparing of the right upper lobe is concerning for atypicalpneumonia. Givensomewhat dependent predilection, this could be due to aspiration. Confluentconsolidation and atelectasis present in the left lower lobe. Small leftpleural effusion. 2. ?Mostly intramuscular hematoma of the abductor compartment of the rightthigh, likely due to vascular injury related tothe femoral central venouscatheter placement. Active hemorrhage cannot be evaluated in the absence ofintravenous contrast. 3. ?Diffuse bony demineralization with compression deformities of T12 andL3 vertebral bodies. Appearance suggests acute-subacute on chronicfractures. Findings of hematoma discussed with Dr. Austin at 1225 on 10/26/2020. Preliminary Report Dictated by Resident: Kati Garcia MD., have reviewed this study and agree with the abovereport.EXAM: CT CHEST, ABDOMEN AND PELVIS WITHOUT CONTRAST, CONSULTATION OUTSIDE HISTORY: 65 years -old Male with uti - shock COMPARISON:None, correlation with CT abdomen pelvis with and withoutcontrast from 09/20/2017 TECHNIQUE: CT examination acquisition dated 10/22/2020 from [facility], labeled with the patients name, was submitted forreview. Contiguous axial imaging from the level of the lung apices to themid thighs was performed without contrast. Coronal and axialreconstructions were obtained. Images were loaded to the PACS archive andreviewed on a PACS workstation. CHEST FINDINGS: Devices: An endotracheal tubeis seen with tip extending approximately 5.6cm superior to the amol. A NG tube courses through theesophagus with tipending in the gastric fundus. LUNGS AND PLEURA: Multifocal mixed attenuation opacities and diffusecentrilobular groundglass nodules present throughout all lobes of the lungwith relative sparing of the right upper lobe. Confluent consolidation andatelectasis present in the left lowerlobe. Small left pleural effusion. LYMPH NODES: Scattered small lymph nodes in both sides of the mediastinumand hilar regions. No evidence of intrathoracic lymphadenopathy. MEDIASTINUM AND LOWER NECK: No central airway lesions are detected. Theesophagus is within normal limits. The included thyroid gland appearsnormal. HEART AND GREAT VESSELS: The heart is normal in size. No pericardialabnormalities are identified. The thoracic aorta is normal in caliber.Significant calcified atherosclerotic plaque seen throughout the thoracicaorta and its branches. The pulmonary trunk is normal in caliber. OSSEOUSSTRUCTURES AND SOFT TISSUES: Hypoplastic 12th ribs. Compressiondeformity of T12 results in approximately 50% height loss; sclerosis withinthe vertebral body suggests chronic nature, however there are somelucencies scattered within the vertebral body which could representacute-subacute fracture lines. A dditionally, there is mild retropulsioninto the spinal canal of up to 0.4 cm; this causes minimal spinal canalnarrowing. Cachectic body habitus with diffuse body wall edema. ABDOMEN AND PELVIS FINDINGS: Limited evaluation of solid organs in the absence of IV contrast. LIVER: No focal hepatic lesions.?Normal contour. GALLBLADDER AND BILIARY TREE: No biliary ductal dilation. ?No gallbladderwall thickening. SPLEEN: No splenomegaly. PANCREAS: No ductal dilation or masses. ADRENAL GLANDS: No adrenal nodules. KIDNEYS: Mild perinephric fat stranding seen bilaterally. Nohydronephrosis, or nephrolithiasis. PERITONEUM AND RETROPERITONEUM: No extraluminal free air. Small volume freefluid seen in the pelvis. LYMPH NODES: No lymphadenopathy. GI TRACT: No dilation or wall thickening. Inspissated stool fills therectum and is seen throughout the entire colon. PELVIS/BLADDER: Limited evaluation due to streak artifact related to theleft total hip replacement hardware. Bladder is decompressed about a Foleycatheter. VESSELS: Severe calcified atherosclerotic plaque affects the aortoiliacvessels and their branches. A right femoral venous catheter tip extendsinto the right mid pelvis. Posteromedial to the catheter within theadductor compartment of the thigh, there is diffuse thickening of themuscles with mild heterogeneous density which is probably due to hematoma.Whether there is active bleeding is not able dwight determined in thisnoncontrast exam. BONES AND SOFT TISSUES: Compression deformity of L3 vertebralbody resultsin approximately 30% height loss. Similar to the T12 fracture, there areareas of sclerosis and lucency which may represent fractures of differentages. Postsurgical changes of a left total hip arthroplasty. [facility], Radiant Results Inft User - 11/08/2020 9:47 AM CDTEXAM: CT CHEST, ABDOMEN ANDPELVIS WITHOUT CONTRAST, CONSULTATION OUTSIDEHISTORY: 65 years -old Male with uti - shock COMPARISON: None, correlation with CT abdomen pelvis with and withoutcontrast from 09/20/2017TECHNIQUE: CT examination acquisition dated 10/22/2020 from [facility], labeled with the patients name, was submitted forreview. Contiguous axial imaging from the level of the lung apices to themid thighs was performed without contrast. Coronal and axialreconstructions were obtained. Images were loaded to the PACS archive andreviewed on a PACS workstation. CHEST FINDINGS:Devices: An endotracheal tube is seen with tip extending approximately 5.6cm superior to the amol. A NG tube courses through the esophagus with tipending in the gastric fundus. LUNGS AND PLEURA: Multifocal mixed attenuation opacities and diffusecentrilobular groundglass nodules present throughout all lobes of the lungwith relativesparing of the right upper lobe. Confluent consolidation andatelectasis present in the left lower lobe. Small left pleural effusion.LYMPH NODES: Scattered small lymph nodes in both sides of the mediastinumand hilar regions. No evidence of intrathoracic lymphadenopathy.MEDIASTINUM AND LOWER NECK: No central airway lesions are detected. Theesophagus is within normal limits. The included thyroid gland ap pearsnormal.HEART AND GREAT VESSELS: The heart is normal in size. No pericardialabnormalities are identified. The thoracic aorta is normal in caliber.Significant calcified atherosclerotic plaque seen throughout the thoracicaorta and its branches. The pulmonary trunk is normal in caliber.OSSEOUS STRUCTURES AND SOFT TISSUES: Hypoplastic 12th ribs. Compressiondeformity of T12 results in approximately 50% height loss; sclerosis withinthe vertebral body suggests chronic nature, however there are somelucencies scattered within the vertebral body which could representacute-subacute fracture lines. Additionally, there is mild retropulsioninto the spinal canal of up to 0.4 cm; this causes minimal spinal canalnarrowing. Cachectic body habitus with diffuse body wall edema.ABDOMEN AND PELVIS FINDINGS:Limitedevaluation of solid organs in the absence of IV contrast. LIVER: No focal hepatic lesions. Normal co ntour.GALLBLADDER AND BILIARY TREE: No biliary ductal dilation. No gallbladderwall thickening.SPLEEN: No splenomegaly.PANCREAS: No ductal dilation or masses.ADRENAL GLANDS: No adrenal nodules.KIDNEYS:Mild perinephric fat stranding seen bilaterally. Nohydronephrosis, or nephrolithiasis.PERITONEUM AND RETROPERITONEUM: No extraluminal free air. Small volume freefluid seen in the pelvis.LYMPH NODES: Nolymphadenopathy.GI TRACT: No dilation or wall thickening. Inspissated stool fills therectum and is seen throughout the entire colon.PELVIS/BLADDER: Limited evaluation due to streak artifact related to t heleft total hip replacement hardware. Bladder is decompressed about a Foleycatheter.VESSELS: Severecalcified atherosclerotic plaque affects the aortoiliacvessels and their branches. A right femoral venous catheter tip extendsinto the right mid pelvis. Posteromedial to the catheter within theadductorcompartment of the thigh, there is diffuse thickening of themuscles with mild heterogeneous density which is probably due to hematoma.Whether there is active bleeding is not able to be determined in thisnoncontrast exam.BONES AND SOFT TISSUES: Compression deformity of L3 vertebral body resultsin approx imately 30% height loss. Similar to the T12 fracture, there areareas of sclerosis and lucency which may represent fractures of differentages. Postsurgical changes of a left total hip arthroplasty.IMPRESSION1. Multifocal mixed attenuation opacities and diffuse centrilobulargroundglass nodules present throughout all lobes of the lung with relativesparing of the right upper lobe is concerning for atypical pneumonia. Givensomewhat dependent predilection, this could be due to aspiration. Confluentconsolidation and atelectasis present in the left lower lobe. Small leftpleural effusion.2. Mostly intramuscular hematoma of the abductor compartment of the rightthigh, likely due to vascular injury related to the femoral central venouscatheter placement. Active hemorrhage cannot be evaluated in the absenceofintravenous contrast.3. Diffuse bony demineralization with compression deformities of T12 andL3 vertebral bodies. Appearance suggests acute-subacute on chronicfractures.Findings of hematoma discussed with Dr. Austin at 1225 on 10/26/2020. Preliminary Report Dictated by Resident: Gwen Hawthorne, Josiah Natarajan MD., have reviewed this study and agree with the abovereport.[facility]CT THORAX W [id number] 14:45:56 1. ?Multifocal mixed attenuation opacities and diffuse centrilobulargroundglass nodules present throughout all lobes of the lung with relativesparing of the right upper lobe is concerning for atypical pneumonia. Givensomewhat dependent predilection, this could be due to aspiration. Confluentconsolidation and atelectasis present in the left lower lobe. Small leftpleural effusion. 2. ?Mostly intramuscular hematoma of the abductor compartment of the rightthigh, likely due to vascular injury related to the femoral central venouscatheter placement. Active hemorrhage cannot be evaluated in the absence ofintravenous contrast. 3. ?Diffuse bony demineralization with compression deformities of T12 andL3 vertebral bodies. Appearance suggests acute-subacute on chronicfractures. Findings of hematoma discussed with Dr. Austin at 1225 on 10/26/2020. Preliminary Report Dictated by Resident: Kati Garcia MD., have reviewed this study and agree with the abovereport.EXAM: CT CHEST, ABDOMEN AND PELVIS WITHOUT CONTRAST, CONSULTATION OUTSIDE HISTORY: 65 years -old Male with uti - shock COMPARISON: None, correlation with CT abdomen pelvis with and withoutcontrast from 09/20/2017 TECHNIQUE: CT examination acquisition dated 10/22/2020 from [facility], labeled with the patients name, was submitted forreview. Contiguous axial imaging from the level of the lung apices to themid thighs was performed without contrast. Coronal and axialreconstructions were obtained. Images were loaded to the PACS archive andreviewed on a PACS workstation. CHEST FINDINGS: Devices: An endotracheal tubeis seen with tip extending approximately 5.6cm superior to the amol. A NG tube courses through theesophagus with tipending in the gastric fundus. LUNGS AND PLEURA: Multifocal mixed attenuation opacities and diffusecentrilobular groundglass nodules present throughout all lobes of the lungwith relative sparing of the right upper lobe. Confluent consolidation andatelectasis present in the left lowerlobe. Small left pleural effusion. LYMPH NODES: Scattered small lymph nodes in both sides of the mediastinumand hilar regions. No evidence of intrathoracic lymphadenopathy. MEDIASTINUM AND LOWER NECK: No central airway lesions are detected. Theesophagus is within normal limits. The included thyroid gland appearsnormal. HEART AND GREAT VESSELS: The heart is normal in size. No pericardialabnormalities are identified. The thoracic aorta is normal in caliber.Significant calcified atherosclerotic plaque seen throughout the thoracicaorta and its branches. The pulmonary trunk is normal in caliber. OSSEOUSSTRUCTURES AND SOFT TISSUES: Hypoplastic 12th ribs. Compressiondeformity of T12 results in approximately 50% height loss; sclerosis withinthe vertebral body suggests chronic nature, however there are so melucencies scattered within the vertebral body which could representacute- subacute fracture lines. Additionally, there is mild retropulsioninto the spinal canal of up to 0.4 cm; this causes minimal spinal canalnarrowing. Cachectic body habitus with diffuse body wall edema. ABDOMEN AND PELVIS FINDINGS: Limited evaluation of solid organs in the absence of IV contrast. LIVER: No focal hepatic lesions.?Normal contour. GALLBLADDER AND BILIARY TREE: No biliary ductal dilation. ?No gallbladderwall thickening. SPLEEN: No splenomegaly. PANCREAS: No ductal dilation or masses. ADRENAL GLANDS: No adrenal nodules. KIDNEYS: Mild perinephric fat stranding seen bilaterally. Nohydronephrosis, or nephrolithiasis. PERITONEUM AND RETROPERITONEUM: No extraluminal free air. Small volume freefluid seen in the pelvis. LYMPH NODES: No lymphadenopathy. GI TRACT: No dilation or wall thickening. Inspissated stool fills therectum and is seen throughout the entire colon. PELVIS/BLADDER: Limited evaluation due to streak ar tifact related to theleft total hip replacement hardware. Bladder is decompressed about a Foleycatheter. VESSELS: Severe calcified atherosclerotic plaque affects the aortoiliacvessels and their branches. A right femoral venous catheter tip extendsinto the right mid pelvis. Posteromedial to the catheter within theadductor compartment of the thigh, there is diffuse thickening of themuscles with mild heterogeneous density which is probably due to hematoma.Whether there is active bleeding is not able dwight determined in thisnoncontrast exam. BONES AND SOFT TISSUES: Compression deformity of L3 vertebralbody resultsin approximately 30% height loss. Similar to the T12 fracture, there areareas of sclerosis and lucency which may represent fractures of differentages. Postsurgical changes of a left total hip arthroplasty. [facility], Radiant Results Inft User - 11/08/2020 9:47 AM CDTEXAM: CT CHEST, ABDOMEN AND PELVIS WITHOUT CONTRAST, CONSULTATION OUTSIDEHISTORY: 65 years -old Male with uti - shock COMPARISON: None, correlation with CT abdomen pelvis with and withoutcontrast from 09/20/2017TECHNIQUE: CT examination acquisition dated 10/22/2020 from [facility], labeled with the patients name, was submitted forreview. Contiguous axial imaging from the level of the lung apices to themid thighs was performed without contrast. Coronal and axialreconstructions were obtained. Images were loaded to the PACS archive andreviewed on a PACS workstation. CHEST FINDINGS:Devices: An endotracheal tube is seen with tip extending approximately 5.6cm superior to the amol. A NG tube courses through the esophagus with tipending in the gastric fundus. LUNGS AND PLEURA: Multifocal mixed attenuation opacities and diffusecentrilobular groundglass nodules present throughout all lobes of the lungwith relativesparing of the right upper lobe. Confluent consolidation andatelectasis present in the left lower lobe. Small left pleural effusion.LYMPH NODES: Scattered small lymph nodes in both sides of the mediastinumand hilar regions. No evidence of intrathoracic lymphadenopathy.MEDIASTINUM AND LOWER NECK: No central airway lesions are detected. Theesophagus is within normal limits. The included thyroid gland appearsnormal.HEART AND GREAT VESSELS: The heart is normal in size. No pericardialabnormalities are identified. The thoracic aorta is normal in caliber.Significant calcified atherosclerotic plaque seen throughout the thoracicaorta and its branches. The pulmonary trunk is normal in caliber.OSSEOUS STRUCTURES AND SOFT TISSUES: Hypoplastic 12th ribs. Compressiondeformity of T12 results in approximately 50% height loss; sclerosis withinthe vertebral body suggests chronic nature, however there are somelucencies scattered within the vertebral body which could representacute-subacute fracture lines. Additionally, there is mild retropulsioninto the spinal canal of up to 0.4 cm; this causes minimal spinal canalnarrowing. Cachectic body habitus with diffuse body wall edema.ABDOMEN AND PELVIS FINDINGS:Limitedevaluation of solid organs in the absence of IV contrast. LIVER: No focal hepatic lesions. Normal co ntour.GALLBLADDER AND BILIARY TREE: No biliary ductal dilation. No gallbladderwall thickening.SPLEEN: No splenomegaly.PANCREAS: No ductal dilation or masses.ADRENAL GLANDS: No adrenal nodules.KIDNEYS:Mild perinephric fat stranding seen bilaterally. Nohydronephrosis, or nephrolithiasis.PERITONEUM AND RETROPERITONEUM: No extraluminal free air. Small volume freefluid seen in the pelvis.LYMPH NODES: Nolymphadenopathy.GI TRACT: No dilation or wall thickening. Inspissated stool fills therectum and is seen throughout the entire colon.PELVIS/BLADDER: Limited evaluation due to streak artifact related to t heleft total hip replacement hardware. Bladder is decompressed about a Foleycatheter.VESSELS: Severecalcified atherosclerotic plaque affects the aortoiliacvessels and their branches. A right femoral venous catheter tip extendsinto the right mid pelvis. Posteromedial to the catheter within theadductorcompartment of the thigh, there is diffuse thickening of themuscles with mild heterogeneous density which is probably due to hematoma.Whether there is active bleeding is not able to be determined in thisnoncontrast exam.BONES AND SOFT TISSUES: Compression deformity of L3 vertebral body resultsin approx imately 30% height loss. Similar to the T12 fracture, there areareas of sclerosis and lucency which may represent fractures of differentages. Postsurgical changes of a left total hip arthroplasty.IMPRESSION1. Multifocal mixed attenuation opacities and diffuse centrilobulargroundglass nodules present throughout all lobes of the lung with relativesparing of the right upper lobe is concerning for atypical pneumonia. Givensomewhat dependent predilection, this could be due to aspiration. Confluentconsolidation and atelectasis present in the left lower lobe. Small leftpleural effusion.2. Mostly intramuscular hematoma of the abductor compartment of the rightthigh, likely due to vascular injury related to the femoral central venouscatheter placement. Active hemorrhage cannot be evaluated in the absenceofintravenous contrast.3. Diffuse bony demineralization with compression deformities of T12 andL3 vertebral bodies. Appearance suggests acute-subacute on chronicfractures.Findings of hematoma discussed with Dr. Austin at 1225 on 10/26/2020. Preliminary Report Dictated by Resident: Gwen Hawthorne, Josiah Natarajan MD., have reviewed this study and agree with the abovereport.[facility] GLUCOSE (AUTOMATED)2020-11-08 11:15:50 Test Item Value Reference Range Interpretation Comments POCT GLU (test code = 6400396362) 126 mg/dL 70-110 H Lab Interpretation (test code = Abnormal 78340-3) [facility] METABOLIC PANEL (NA, K, CL, CO2, GLUCOSE, BUN, CREATININE, CA)2020-11-08 10:22:09 Test Item Value Reference Range Interpretation Comments NA (test code = 147 mmol/L 135-145 H 8981887937) K (test code = 4.1 mmol/L 3.5-5.0 1851555970) CL (test code = 113 mmol/L 98-108 H 3754172825) CO2 TOTAL (test code = 30 mmol/L 23-31 7736768492) AGAP (test code = 2-16 7746355004) BUN (test code = 43 mg/dL 7-23 H 9711232271) GLUCOSE (test code = 113 mg/dL 70-110 H 7893598872) CREATININE (test code = 1.17 mg/dL 0.60-1.25 9889321758) CALCIUM (test code = 7.6 mg/dL 8.6-10.6 L 7847472118) eGFR (test code = mL/min/1.73m2 2461192369) JUAN LUIS (test code = JUAN LUIS) Association of Glomerular Filtration Rate (GFR) and Staging of Kidney Disease* + --+ --+ ------+| GFR (mL/min/1.73 m2) ?| With Kidney Damage ?| ?Without Kidney Damage+ --------+ --------+ +| ?>90 ?| ?Stage one ?| ? Normal ?+ ---+ ---+ -------+| ?60-89 ?| ?Stage two ?| ? Decreased GFR ? + --+ --+ ------+| ?30-59 ?| ?Stage three ?| ? Stage three ? + --+ --+ ------+| ?15-29 ?| ?Stage four ? | ? Stage four ?+ ---+ ---+ -------+| ?<15 (or dialysis) ? ?| ?Stage five ? | ? Stage five ?+ ---+ ---+ -------+ *Each stage assumes the associated GFR level has been in effect for at least three months. ?Stages 1 to 5, with or without kidney disease, indicate chronic kidney disease. Notes: Determination of stages one and two (with eGFR >59mL/min/1.73 m2) requires estimation of kidney damage for at least three months as defined by structural or functional abnormalities of the kidney, manifested by either:Pathological abnormalities or Markers of kidney damage (including abnormalities in the composition of the blood or urine or abnormalities in imaging tests). Lab Interpretation Abnormal (test code = 75462-2) [facility] WITH [id number] 10:16:46 Test Item Value Reference Range Interpretation Comments WBC (test code = See_Comment [Automated 6690-2) message] The sy stem which generated this result transmitted reference range : 4.20 - 10.70 10*3/?L. The reference range was not used to interpret this result as normal/abnormal . RBC (test code = See_Comment L [Automated 789-8) message] The sy stem which generated this result transmitted reference range : 4.26 - 5.52 10*6/?L. The reference range was not used to interpret this result as normal/abnormal . HGB (test code = 7.5 g/dL 12.2-16.4 L 718-7) HCT (test code = 24.3 % 38.4-49.3 L 4544-3) MCV (test code = 81.8 fL 81.7-95.6 787-2) MCH (test code = 25.3 pg 26.1-32.7 L 785-6) MCHC (test code = 30.9 g/dL 31.2-35.0 L 786-4) RDW-SD (test code = 65.6 fL 38.5-51.6 H 09101-8) RDW-CV (test code = 23.0 % 12.1-15.4 H 788-0) PLT (test code = See_Comment [Automated 777-3) message] The sy stem which generated this result transmitted reference range : 150 - 328 10*3/ ?L. The reference r christine was not used to interpret this result as normal/abnormal . MPV (test code = 13.3 fL 9.8-13.0 H 79706-4) NRBC/100 WBC (test See_Comment [Automat ed code = 0368700305) message] The system which generated this result transmitted reference range : 0.0 - 10.0 /100 WBCs. The refer ence range was not u sed to interpret th is result as normal/abnormal . NRBC x10^3 (test code <0.01 See_Comment [Auto mated = [id number]) message] The s ystem which generated this result transmitted reference range : 10*3/?L. The reference range was not used to interpret this result as normal/abnormal . GRAN MAT (NEUT) % 71.8 % (test code = 770-8) IMM GRAN % (test code 0.30 % = 4764701582) LYMPH % (test code = 17.7 % 736-9) MONO % (test code = 7.2 % 5905-5) EOS % (test code = 2.5 % 713-8) BASO % (test code = 0.5 % 706-2) GRAN MAT x10^3(ANC) 4.57 10*3/uL 1.99-6.95 (test code = 5545689576) IMM GRAN x10^3 (test <0.03 0.00-0.06 code = 0405293508) LYMPH x10^3 (test code 1.13 10*3/uL 1.09-3.23 = 731-0) MONO x10^3 (test code 0.46 10*3/uL 0.36-1.02 = 742-7) EOS x10^3 (test code = 0.16 10*3/uL 0.06-0.53 711-2) BASO x10^3 (test code 0.03 10*3/uL 0.01-0.09 = 704-7) Lab Interpretation Abnormal (test code = 87480-6) [facility] WITH [id number] 10:16:46 Test Item Value Reference Range Interpretation Comments WBC (test code = See_Comment [Automated 0190-2) message] The sy stem which generated this result transmitted reference range : 4.20 - 10.70 10*3/?L. The reference range was not used to interpret this result as normal/abnormal . RBC (test code = See_Comment L [Automated 039-8) message] The sy stem which generated this result transmitted reference range : 4.26 - 5.52 10*6/?L. The reference range was not used to interpret this result as normal/abnormal . HGB (test code = 7.5 g/dL 12.2-16.4 L 718-7) HCT (test code = 24.3 % 38.4-49.3 L 4544-3) MCV (test code = 81.8 fL 81.7-95.6 787-2) MCH (test code = 25.3 pg 26.1-32.7 L 785-6) MCHC (test code = 30.9 g/dL 31.2-35.0 L 786-4) RDW-SD (test code = 65.6 fL 38.5-51.6 H 65063-6) RDW-CV (test code = 23.0 % 12.1-15.4 H 788-0) PLT (test code = See_Comment [Automated 777-3) message] The sy stem which generated this result transmitted reference range : 150 - 328 10*3/ ?L. The reference r christine was not used to interpret this result as normal/abnormal . MPV (test code = 13.3 fL 9.8-13.0 H 59289-0) NRBC/100 WBC (test See_Comment [Automat ed code = 0439913525) message] The system which generated this result transmitted reference range : 0.0 - 10.0 /100 WBCs. The refer ence range was not u sed to interpret th is result as normal/abnormal . NRBC x10^3 (test code <0.01 See_Comment [Auto mated = [id number]) message] The s ystem which generated this result transmitted reference range : 10*3/?L. The reference range was not used to interpret this result as normal/abnormal . GRAN MAT (NEUT) % 71.8 % (test code = 770-8) IMM GRAN % (test code 0.30 % = 9134622903) LYMPH % (test code = 17.7 % 736-9) MONO % (test code = 7.2 % 5905-5) EOS % (test code = 2.5 % 713-8) BASO % (test code = 0.5 % 706-2) GRAN MAT x10^3(ANC) 4.57 10*3/uL 1.99-6.95 (test code = 0924499510) IMM GRAN x10^3 (test <0.03 0.00-0.06 code = 8447364209) LYMPH x10^3 (test code 1.13 10*3/uL 1.09-3.23 = 731-0) MONO x10^3 (test code 0.46 10*3/uL 0.36-1.02 = 742-7) EOS x10^3 (test code = 0.16 10*3/uL 0.06-0.53 711-2) BASO x10^3 (test code 0.03 10*3/uL 0.01-0.09 = 704-7) Lab Interpretation Abnormal (test code = 12566-9) [facility] GLUCOSE (AUTOMATED)2020-11-08 05:43:41 Test Item Value Reference Range Interpretation Comments POCT GLU (test code = 3164689214) 123 mg/dL 70-110 H Lab Interpretation (test code = Abnormal 31258-4) [facility] GLUCOSE (AUTOMATED)2020-11-07 22:02:56 Test Item Value Reference Range Interpretation Comments POCT GLU (test code = 7291909461) 120 mg/dL 70-110 H Lab Interpretation (test code = Abnormal 13444-0) [id number] 15:30:56 Nonobstructive bowel gas pattern. Mild stool burden throughout the colon. Preliminary Report Dictated by Resident: Emelia Mcdonald I reviewed this study and agree. IJigar MD., have reviewed this study and agree with theabove report.EXAM: XR KUB HISTORY: 65 years-old Male presenting with constipation COMPARISON: Abdomen radiographs most recent 10/26/2020 TECHNIQUE: Frontal views of the abdomen and pelvis were obtained. FINDINGS: Dobbhoff tube with the tip and sidehole terminates at the gastric body.Scattered gas is noted within multiple nondilated small and large bowelloops to the level of the rectum in a nonobstructive pattern. Left-sidedhip arthroplasty. [facility], Radiant Results Inft User - 11/07/2020 10:32 AM CDTEXAM: XR KUBHISTORY: 65 years-old Male presenting with constipation COMPARISON: Abdomen radiographs most recent 10/26/2020TECHNIQUE: Frontal views of the abdomen and pelvis were obtained.FINDINGS:Dobbhoff tube with the tip and sidehole terminates at the gastric body.Scattered gas is noted within multiple nondilated small and large bowelloops to the level of the rectum in a nonobstructive pattern. Left-sidedhip arthroplasty.IMPRESSIONNonobstructive bowel gas pattern. Mild stool burden throughout the colon.Preliminary Report Dictated by Resident: Emelia Ly reviewed thisstudy and agree.IJigar MD., have reviewed this study and agree with theabove report. [facility] [id number] 14:18:52EXAM: XR CHEST 1 VW HISTORY: fever COMPARISON: None. FINDINGS: The heart remains slightly enlarged to the left. A nasogastric tube passesthrough the thorax and into the stomach. Perihilar vascular congestion andbasilar pulmonary edema persist, slightly less marked on the left and aboutthe same on theright. Prominent skin folds on the right obscure the lungbases. ? [facility], Radiant Results Inft User - 11/07/2020 9:20 AM CDTEXAM: XR CHEST 1 VWHISTORY: fever COMPARISON: None.FINDINGS:The heart remains slightly enlarged to the left. A nasogastric tube passesthrough the thorax and into the stomach.Perihilar vascular congestion andbasilar pulmonary edema persist, slightly less marked on the left and aboutthe same on the right. Prominent skin folds on the right obscure the lungbases.[facility] [id number] 14:18:52 EXAM: XR CHEST 1 VW HISTORY: fever COMPARISON: None. FINDINGS: The heart remains slightly enlarged to the left. A nasogastric tube passesthrough the thorax and into the stomach. Perihilar vascular congestion andbasilar pulmonary edema persist, slightly less marked on the left and aboutthe same on theright. Prominent skin folds on the right obscure the lungbases. ? [facility], Radiant Results Inft User - 11/07/2020 9:20 AM CDTEXAM: XR CHEST 1 VWHISTORY: fever COMPARISON: None.FINDINGS:The heart remains slightly enlarged to the left. A nasogastric tube passesthrough the thorax and into the stomach.Perihilar vascular congestion andbasilar pulmonary edema persist, slightly less marked on the left and aboutthe same on the right. Prominent skin folds on the right obscure the lungbases.[facility] 2020-11-07 13:14:41 Test Item Value Reference Range Interpretation Comments POCT GLU (test code = 1601387722) 88 mg/dL 70-110 Lab Interpretation (test code = Normal 05236-8) [facility] METABOLIC PANEL (NA, K, CL, CO2, GLUCOSE, BUN, CREATININE, CA)2020-11-07 10:43:49 Test Item Value Reference Range Interpretation Comments NA (test code = 148 mmol/L 135-145 H 8607181285) K (test code = 4.1 mmol/L 3.5-5.0 1629268001) CL (test code = 113 mmol/L 98-108 H 6173794022) CO2 TOTAL (test code = 35 mmol/L 23-31 H 2833548635) AGAP (test code = <1 2-16 L 5102287118) BUN (test code = 45 mg/dL 7-23 H 6966363878) GLUCOSE (test code = 63 mg/dL 70-110 L 8861072414) CREATININE (test code = 1.33 mg/dL 0.60-1.25 H 4984024165) CALCIUM (test code = 8.0 mg/dL 8.6-10.6 L 5157026000) eGFR (test code = mL/min/1.73m2 1018438339) JUAN LUIS (test code = JUAN LUIS) Association of Glomerular Filtration Rate (GFR) and Staging of Kidney Disease* + --+ --+ ------+| GFR (mL/min/1.73 m2) ?| With Kidney Damage ?| ?Without Kidney Damage+ --------+ --------+ +| ?>90 ?| ?Stage one ?| ? Normal ?+ ---+ ---+ -------+| ?60-89 ?| ?Stage two ?| ? Decreased GFR ? + --+ --+ ------+| ?30-59 ?| ?Stage three ?| ? Stage three ? + --+ --+ ------+| ?15-29 ?| ?Stage four ? | ? Stage four ?+ ---+ ---+ -------+| ?<15 (or dialysis) ? ?| ?Stage five ? | ? Stage five ?+ ---+ ---+ -------+ *Each stage assumes the associated GFR level has been in effect for at least three months. ?Stages 1 to 5, with or without kidney disease, indicate chronic kidney disease. Notes: Determination of stages one and two (with eGFR >59mL/min/1.73 m2) requires estimation of kidney damage for at least three months as defined by structural or functional abnormalities of the kidney, manifested by either:Pathological abnormalities or Markers of kidney damage (including abnormalities in the composition of the blood or urine or abnormalities in imaging tests). Lab Interpretation Abnormal (test code = 01355-9) [facility]07 Test Item Value Reference Range Interpretation Comments MAGNESIUM (test code = 7084919692) 2.7 mg/dL 1.7-2.4 H Lab Interpretation (test code = Abnormal 85605-4) [facility]2020-11-07 10:27:42 Test Item Value Reference Range Interpretation Comments POCT GLU (test code = 2983084404) 80 mg/dL 70-110 Lab Interpretation (test code = Normal 64907-4) [facility] [id number] 10:22:42 Test Item Value Reference Range Interpretation Comments WBC (test code = 6690-2) See_Comment [A utomated message] The system [employer] generated this result transmit tennille reference range : 4.20 - 10.70 10*3/?L. The reference range was not used to interpret this result as normal/abnormal . RBC (test code = 789-8) See_Comment L [Au tomated message] The system [employer] generated this result transmit tennille reference range : 4.26 - 5.52 10* 6/?L. The reference r christine was not used to interpret this result as normal/abnormal . HGB (test code = 718-7) 7.3 g/dL 12.2-16.4 L HCT (test code = 4544-3) 23.6 % 38.4-49.3 L MCH (test code = 785-6) 24.7 pg 26.1-32.7 L MCV (test code = 787-2) 80.0 fL 81.7-95.6 L MCHC (test code = 786-4) 30.9 g/dL 31.2-35.0 L PLT (test code = 777-3) See_Comment [Au tomated message] The system [employer] generated this result transmit tennille reference range : 150 - 328 10*3/?L. The reference range was not used to interpret this result as normal/abnormal . MPV (test code = 12.7 fL 9.8-13.0 05686-1) RDW-CV (test code = 23.8 % 12.1-15.4 H 788-0) RDW-SD (test code = 65.6 fL 38.5-51.6 H 92824-8) NRBC x10^3 (test code = <0.01 See_Comment [Au tomated message] 4356802308) The system [employer] generated this result transmit tennille reference range : 10*3/?L. The reference range was not used to interpret this result as normal/abnormal . NRBC/100 WBC (test code See_Comment [Au tomated message] = 8916878228) The system [employer] generated this result transmit tennille reference range : 0.0 - 10.0 /100 WBC s. The reference r christine was not used to interpret this result as normal/abnormal . IPF % (test code = 7446883299) Lab Interpretation (test Abnormal code = 53570-2) [facility] GLUCOSE (AUTOMATED)2020-11-07 05:14:24 Test Item Value Reference Range Interpretation Comments POCT GLU (test code = 9872203442) 87 mg/dL 70-110 Lab Interpretation (test code = Normal 75281-8) [facility] GLUCOSE (AUTOMATED)2020-11-06 22:50:06 Test Item Value Reference Range Interpretation Comments POCT GLU (test code = 6470648182) 80 mg/dL 70-110 Lab Interpretation (test code = Normal 44952-6) [facility] GLUCOSE (AUTOMATED)2020-11-06 16:50:42 Test Item Value Reference Range Interpretation Comments POCT GLU (test code = 8898489076) 146 mg/dL 70-110 H Lab Interpretation (test code = Abnormal 68092-9) [facility] GLUCOSE (AUTOMATED)2020-11-06 16:50:42 Test Item Value Reference Range Interpretation Comments POCT GLU (test code = 9307937422) 146 mg/dL 70-110 H Lab Interpretation (test code = Abnormal 56839-3) [facility] [id number] 12:14:44 Test Item Value Reference Range Interpretation Comments URINE CULTURE (test No aerobic growth (< code = 630-4) 1000 CFU/mL) [facility] [id number] 12:14:44 Test Item Value Reference Range Interpretation Comments URINE CULTURE (test No aerobic growth (< code = 630-4) 1000 CFU/mL) [facility] [id number] 12:14:44 Test Item Value Reference Range Interpretation Comments URINE CULTURE (test No aerobic growth (< code = 630-4) 1000 CFU/mL) [facility] Test Item Value Reference Range Interpretation Comments MAGNESIUM (test code = 7490714906) 2.6 mg/dL 1.7-2.4 H Lab Interpretation (test code = Abnormal 76314-6) [facility] (NA, K, CL, CO2, GLUCOSE, BUN, CREATININE, CA)2020-11-06 11:42:12 Test Item Value Reference Range Interpretation Comments NA (test code = 146 mmol/L 135-145 H 2907436129) K (test code = 4.0 mmol/L 3.5-5.0 7193536146) CL (test code = 112 mmol/L 98-108 H 3463888663) CO2 TOTAL (test code = 32 mmol/L 23-31 H 4046156726) AGAP (test code = 2-16 0661911987) BUN (test code = 47 mg/dL 7-23 H 8351168104) GLUCOSE (test code = 176 mg/dL 70-110 H 5121226576) CREATININE (test code = 1.33 mg/dL 0.60-1.25 H 4731098925) CALCIUM (test code = 7.9 mg/dL 8.6-10.6 L 2440452097) eGFR (test code = mL/min/1.73m2 1504712261) JUAN LUIS (test code = JUAN LUIS) Association of Glomerular Filtration Rate (GFR) and Staging of Kidney Disease* + --+ --+ ------+| GFR (mL/min/1.73 m2) ?| With Kidney Damage ?| ?Without Kidney Damage+ --------+ --------+ +| ?>90 ?| ?Stage one ?| ? Normal ?+ ---+ ---+ -------+| ?60-89 ?| ?Stage two ?| ? Decreased GFR ? + --+ --+ ------+| ?30-59 ?| ?Stage three ?| ? Stage three ? + --+ --+ ------+| ?15-29 ?| ?Stage four ? | ? Stage four ?+ ---+ ---+ -------+| ?<15 (or dialysis) ? ?| ?Stage five ? | ? Stage five ?+ ---+ ---+ -------+ *Each stage assumes the associated GFR level has been in effect for at least three months. ?Stages 1 to 5, with or without kidney disease, indicate chronic kidney disease. Notes: Determination of stages one and two (with eGFR >59mL/min/1.73 m2) requires estimation of kidney damage for at least three months as defined by structural or functional abnormalities of the kidney, manifested by either:Pathological abnormalities or Markers of kidney damage (including abnormalities in the composition of the blood or urine or abnormalities in imaging tests). Lab Interpretation Abnormal (test code = 12821-1) [facility] (NA, K, CL, CO2, GLUCOSE, BUN, CREATININE, CA)2020-11-06 11:42:12 Test Item Value Reference Range Interpretation Comments NA (test code = 146 mmol/L 135-145 H 6504127176) K (test code = 4.0 mmol/L 3.5-5.0 3862967736) CL (test code = 112 mmol/L 98-108 H 8161508021) CO2 TOTAL (test code = 32 mmol/L 23-31 H 6233338805) AGAP (test code = 2-16 6145828671) BUN (test code = 47 mg/dL 7-23 H 4847253603) GLUCOSE (test code = 176 mg/dL 70-110 H 4423636691) CREATININE (test code = 1.33 mg/dL 0.60-1.25 H 3725703965) CALCIUM (test code = 7.9 mg/dL 8.6-10.6 L 3775826530) eGFR (test code = mL/min/1.73m2 9843201413) JUAN LUIS (test code = JUAN LUIS) Association of Glomerular Filtration Rate (GFR) and Staging of Kidney Disease* + --+ --+ ------+| GFR (mL/min/1.73 m2) ?| With Kidney Damage ?| ?Without Kidney Damage+ --------+ --------+ +| ?>90 ?| ?Stage one ?| ? Normal ?+ ---+ ---+ -------+| ?60-89 ?| ?Stage two ?| ? Decreased GFR ? + --+ --+ ------+| ?30-59 ?| ?Stage three ?| ? Stage three ? + --+ --+ ------+| ?15-29 ?| ?Stage four ? | ? Stage four ?+ ---+ ---+ -------+| ?<15 (or dialysis) ? ?| ?Stage five ? | ? Stage five ?+ ---+ ---+ -------+ *Each stage assumes the associated GFR level has been in effect for at least three months. ?Stages 1 to 5, with or without kidney disease, indicate chronic kidney disease. Notes: Determination of stages one and two (with eGFR >59mL/min/1.73 m2) requires estimation of kidney damage for at least three months as defined by structural or functional abnormalities of the kidney, manifested by either:Pathological abnormalities or Markers of kidney damage (including abnormalities in the composition of the blood or urine or abnormalities in imaging tests). Lab Interpretation Abnormal (test code = 76752-5) [facility] 11:42:12 Test Item Value Reference Range Interpretation Comments MAGNESIUM (test code = 6394125359) 2.6 mg/dL 1.7-2.4 H Lab Interpretation (test code = Abnormal 85224-4) [facility] [id number] 11:35:08 Test Item Value Reference Range Interpretation Comments WBC (test code = 6690-2) See_Comment [A utomated message] The system [employer] generated this result transmit tennille reference range : 4.20 - 10.70 10*3/?L. The reference range was not used to interpret this result as normal/abnormal . RBC (test code = 789-8) See_Comment L [Au tomated message] The system [employer] generated this result transmit tennille reference range : 4.26 - 5.52 10* 6/?L. The reference r christine was not used to interpret this result as normal/abnormal . HGB (test code = 718-7) 7.6 g/dL 12.2-16.4 L HCT (test code = 4544-3) 24.4 % 38.4-49.3 L MCH (test code = 785-6) 25.1 pg 26.1-32.7 L MCV (test code = 787-2) 80.5 fL 81.7-95.6 L MCHC (test code = 786-4) 31.1 g/dL 31.2-35.0 L PLT (test code = 777-3) See_Comment [Au tomated message] The system [employer] generated this result transmit tennille reference range : 150 - 328 10*3/?L. The reference range was not used to interpret this result as normal/abnormal . MPV (test code = 13.6 fL 9.8-13.0 H 60386-3) RDW-CV (test code = 23.8 % 12.1-15.4 H 788-0) RDW-SD (test code = 66.0 fL 38.5-51.6 H 10526-5) NRBC x10^3 (test code = <0.01 See_Comment [Au tomated message] 0684210789) The system [employer] generated this result transmit tennille reference range : 10*3/?L. The reference range was not used to interpret this result as normal/abnormal . NRBC/100 WBC (test code See_Comment [Au tomated message] = 0179499423) The system [facility] generated this result transmit tennille reference range : 0.0 - 10.0 /100 WBC s. The reference r christine was not used to interpret this result as normal/abnormal . IPF % (test code = 5352781406) Lab Interpretation (test Abnormal code = 80793-4) [facility] WITHOUT [id number] 11:35:08 Test Item Value Reference Range Interpretation Comments WBC (test code = 6690-2) See_Comment [A utomated message] The system [employer] generated this result transmit tennille reference range : 4.20 - 10.70 10*3/?L. The reference range was not used to interpret this result as normal/abnormal . RBC (test code = 789-8) See_Comment L [Au tomated message] The system [employer] generated this result transmit tennille reference range : 4.26 - 5.52 10* 6/?L. The reference r christine was not used to interpret this result as normal/abnormal . HGB (test code = 718-7) 7.6 g/dL 12.2-16.4 L HCT (test code = 4544-3) 24.4 % 38.4-49.3 L MCH (test code = 785-6) 25.1 pg 26.1-32.7 L MCV (test code = 787-2) 80.5 fL 81.7-95.6 L MCHC (test code = 786-4) 31.1 g/dL 31.2-35.0 L PLT (test code = 777-3) See_Comment [Au tomated message] The system [facility] generated this result transmit tennille reference range : 150 - 328 10*3/?L. The reference range was not used to interpret this result as normal/abnormal . MPV (test code = 13.6 fL 9.8-13.0 H 34947-3) RDW-CV (test code = 23.8 % 12.1-15.4 H 788-0) RDW-SD (test code = 66.0 fL 38.5-51.6 H 66476-5) NRBC x10^3 (test code = <0.01 See_Comment [Au tomated message] 4898805988) The system [facility] generated this result transmit tennille reference range : 10*3/?L. The reference range was not used to interpret this result as normal/abnormal . NRBC/100 WBC (test code See_Comment [Au tomated message] = 1074388083) The system [facility] generated this result transmit tennille reference range : 0.0 - 10.0 /100 WBC s. The reference r christine was not used to interpret this result as normal/abnormal . IPF % (test code = 3090276064) Lab Interpretation (test Abnormal code = 37647-2) [facility]2020-11-06 11:12:42 Test Item Value Reference Range Interpretation Comments POCT GLU (test code = 4004950613) 206 mg/dL 70-110 H Lab Interpretation (test code = Abnormal 87634-2) [facility], [id number] 07:41:26 Test Item Value Reference Range Interpretation Comments VIT B6 (test code = 10 nmol/L 20.0-125.0 L INTERPRE TIVE 43478-6) INFORMATION: Vi tamin B6 (Pyridoxal 5-Phosphate) Py ridoxal 5'-phosphate me asured in a specimen collected follo wing an 8-hour or overn ight fast accurately indicates vitam in B6 nutritional sta tus. Non-fasting spe cimen concentration r eflects recent vitamin intake. This test was developed and i ts performance characteristics determined by [employer]. I t has not been cleare d or approved by the [place] Food and Drug Administration. This test was perfor med in a CLIA certifie d laboratory and is intended for cl inical purposes.Perfor med By: [employer] [place], [place] [address]Yuxlulmyjo Director: Dori Carpio MD Lab Interpretation Abnormal (test code = 88199-5) [facility], [id number] 07:41:26 Test Item Value Reference Range Interpretation Comments VIT B6 (test code = 10 nmol/L 20.0-125.0 L INTERPRE TIVE 41324-9) INFORMATION: Vi tamin B6 (Pyridoxal 5-Phosphate) Py ridoxal 5'-phosphate me asured in a specimen collected follo wing an 8-hour or overn ight fast accurately indicates vitam in B6 nutritional sta tus. Non-fasting spe cimen concentration r eflects recent vitamin intake. This test was developed and i ts performance characteristics determined by [employer]. I t has not been cleare d or approved by the [place] Food and Drug Administration. This test was perfor med in a CLIA certifie d laboratory and is intended for cl inical purposes.Perfor med By: [employer] [place], [place] [address]Jqweacryys Director: Dori Carpio MD Lab Interpretation Abnormal (test code = 85227-7) [facility], [id number] 07:41:26 Test Item Value Reference Range Interpretation Comments VIT B6 (test code = 10 nmol/L 20.0-125.0 L INTERPRE TIVE 53889-1) INFORMATION: Vi tamin B6 (Pyridoxal 5-Phosphate) Py ridoxal 5'-phosphate me asured in a specimen collected follo wing an 8-hour or overn ight fast accurately indicates vitam in B6 nutritional sta tus. Non-fasting spe cimen concentration r eflects recent vitamin intake. This test was developed and i ts performance characteristics determined by [facility]. I t has not been cleare d or approved by the [place] Food and Drug Administration. This test was perfor med in a CLIA certifie d laboratory and is intended for cl inical purposes.Perfor med By: [employer] [place], [place] [address]Hyarkbipcm Director: Dori Carpio MD Lab Interpretation Abnormal (test code = 82797-8) [facility]2020-11-06 05:08:09 Test Item Value Reference Range Interpretation Comments POCT GLU (test code = 9868896476) 175 mg/dL 70-110 H Lab Interpretation (test code = Abnormal 51915-4) [facility] (THIAMINE), WHOLE [id number] 00:12:20 Test Item Value Reference Range Interpretation Comments Vitamin B1, Whole 104 nmol/L 70-180 INTERPRETI VE INFORMATION: Blood (test code = Vitamin B 1, Whole Blood 84334-5) This assay gal ures the concentration o f thiamine diphosphate (TD P), the primary active form of vitamin B1. Nataly roximately 90 percent of v itamin B1 present in whol e blood is TDP. Thiamine a nd thiamine monoph osphate, which comprise the remaining 10 pe rcent, are not measured. T his test was developed a nd its performance characteristics determined by [facility]. I t has not been cleared or approved by the [place] Food and Drug Administration. This test was performed i n a CLIA certified labor atory and is intended for clinical purposes.Perfor med By: [employer] [place], [place] [address]F aboratory Director: Dori Carpio MD [facility] (THIAMINE), WHOLE [id number] 00:12:20 Test Item Value Reference Range Interpretation Comments Vitamin B1, Whole 104 nmol/L 70-180 INTERPRETI VE INFORMATION: Blood (test code = Vitamin B 1, Whole Blood 24340-1) This assay gal ures the concentration o f thiamine diphosphate (TD P), the primary active form of vitamin B1. Nataly roximately 90 percent of v itamin B1 present in whol e blood is TDP. Thiamine a nd thiamine monoph osphate, which comprise the remaining 10 pe rcent, are not measured. T his test was developed a nd its performance characteristics determined by [facility]. I t has not been cleared or approved by the [place] Food and Drug Administration. This test was performed i n a CLIA certified labor atory and is intended for clinical purposes.Perfor med By: [facility] [employer] [address] aboratory Director: Dori Carpio MD [facility] (THIAMINE), WHOLE [id number] 00:12:20 Test Item Value Reference Range Interpretation Comments Vitamin B1, Whole 104 nmol/L 70-180 INTERPRETI VE INFORMATION: Blood (test code = Vitamin B 1, Whole Blood 61628-9) This assay gal ures the concentration o f thiamine diphosphate (TD P), the primary active form of vitamin B1. Nataly roximately 90 percent of v itamin B1 present in whol e blood is TDP. Thiamine a nd thiamine monoph osphate, which comprise the remaining 10 pe rcent, are not measured. T his test was developed a nd its performance characteristics determined by [facility]. I t has not been cleared or approved by the [place] Food and Drug Administration. This test was performed i n a CLIA certified labor atory and is intended for clinical purposes.Perfor med By: [facility] [address] [place], [place] [address]W aboratory Director: Dori Carpio MD [facility]2020-11-05 18:42:54 Test Item Value Reference Range Interpretation Comments POCT GLU (test code = 4925716067) 139 mg/dL 70-110 H Lab Interpretation (test code = Abnormal 55241-0) [facility] [id number] 12:13:36 Test Item Value Reference Range Interpretation Comments CSF CULTURE (test No organisms isolated code = 606-4) Gram stain (test code Occasional (Rare) = 664-3) Mononuclear cells [facility] [id number] 12:13:36 Test Item Value Reference Range Interpretation Comments CSF CULTURE (test No organisms isolated code = 606-4) Gram stain (test code Occasional (Rare) = 664-3) Mononuclear cells [facility] [id number] 12:13:36 Test Item Value Reference Range Interpretation Comments CSF CULTURE (test No organisms isolated code = 606-4) Gram stain (test code Occasional (Rare) = 664-3) Mononuclear cells [facility] GLUCOSE (AUTOMATED)2020-11-05 11:19:24 Test Item Value Reference Range Interpretation Comments POCT GLU (test code = 1816357361) 186 mg/dL 70-110 H Lab Interpretation (test code = Abnormal 01831-8) [facility] METABOLIC PANEL (NA, K, CL, CO2, GLUCOSE, BUN, CREATININE, CA)2020-11-05 10:23:43 Test Item Value Reference Range Interpretation Comments NA (test code = 147 mmol/L 135-145 H 3172197050) K (test code = 3.9 mmol/L 3.5-5.0 7983591813) CL (test code = 115 mmol/L 98-108 H 7242445232) CO2 TOTAL (test code = 29 mmol/L 23-31 7544164197) AGAP (test code = 2-16 7543450543) BUN (test code = 47 mg/dL 7-23 H 8084733974) GLUCOSE (test code = 157 mg/dL 70-110 H 5773701713) CREATININE (test code = 1.35 mg/dL 0.60-1.25 H 8013302310) CALCIUM (test code = 8.0 mg/dL 8.6-10.6 L 5479130518) eGFR (test code = mL/min/1.73m2 1382757083) JUAN LUIS (test code = JUAN LUIS) Association of Glomerular Filtration Rate (GFR) and Staging of Kidney Disease* + --+ --+ ------+| GFR (mL/min/1.73 m2) ?| With Kidney Damage ?| ?Without Kidney Damage+ --------+ --------+ +| ?>90 ?| ?Stage one ?| ? Normal ?+ ---+ ---+ -------+| ?60-89 ?| ?Stage two ?| ? Decreased GFR ? + --+ --+ ------+| ?30-59 ?| ?Stage three ?| ? Stage three ? + --+ --+ ------+| ?15-29 ?| ?Stage four ? | ? Stage four ?+ ---+ ---+ -------+| ?<15 (or dialysis) ? ?| ?Stage five ? | ? Stage five ?+ ---+ ---+ -------+ *Each stage assumes the associated GFR level has been in effect for at least three months. ?Stages 1 to 5, with or without kidney disease, indicate chronic kidney disease. Notes: Determination of stages one and two (with eGFR >59mL/min/1.73 m2) requires estimation of kidney damage for at least three months as defined by structural or functional abnormalities of the kidney, manifested by either:Pathological abnormalities or Markers of kidney damage (including abnormalities in the composition of the blood or urine or abnormalities in imaging tests). Lab Interpretation Abnormal (test code = 96378-7) [facility] Test Item Value Reference Range Interpretation Comments MAGNESIUM (test code = 2629133798) 2.7 mg/dL 1.7-2.4 H Lab Interpretation (test code = Abnormal 15184-5) [facility] [id number] 09:54:56 Test Item Value Reference Range Interpretation Comments WBC (test code = 6690-2) See_Comment H [A utomated message] The system [employer] generated this result transmit tennille reference range : 4.20 - 10.70 10*3/?L. The reference range was not used to interpret this result as normal/abnormal . RBC (test code = 789-8) See_Comment L [Au tomated message] The system [employer] generated this result transmit tennille reference range : 4.26 - 5.52 10* 6/?L. The reference r christine was not used to interpret this result as normal/abnormal . HGB (test code = 718-7) 8.3 g/dL 12.2-16.4 L HCT (test code = 4544-3) 26.6 % 38.4-49.3 L MCH (test code = 785-6) 25.0 pg 26.1-32.7 L MCV (test code = 787-2) 80.1 fL 81.7-95.6 L MCHC (test code = 786-4) 31.2 g/dL 31.2-35.0 PLT (test code = 777-3) See_Comment [Au tomated message] The system [facility] generated this result transmit tennille reference range : 150 - 328 10*3/?L. The reference range was not used to interpret this result as normal/abnormal . MPV (test code = 12.5 fL 9.8-13.0 22521-7) RDW-CV (test code = 23.9 % 12.1-15.4 H 788-0) RDW-SD (test code = 66.3 fL 38.5-51.6 H 67100-3) NRBC x10^3 (test code = <0.01 See_Comment [Au tomated message] 5880226684) The system [facility] [employer] generated this result transmit tennille reference range : 10*3/?L. The reference range was not used to interpret this result as normal/abnormal . NRBC/100 WBC (test code See_Comment [Au tomated message] = 2304875266) The system [facility] generated this result transmit tennille reference range : 0.0 - 10.0 /100 WBC s. The reference r christine was not used to interpret this result as normal/abnormal . IPF % (test code = 3482349532) Lab Interpretation (test Abnormal code = 82493-0) [facility]2020-11-05 04:55:22 Test Item Value Reference Range Interpretation Comments POCT GLU (test code = 8301218389) 112 mg/dL 70-110 H Lab Interpretation (test code = Abnormal 34889-7) [facility]TPO) [id number] 23:58:26 Test Item Value Reference Interpretation Comments Range TPO Ab IgG (test See_Comment [Automated code = 3125908608) message] The system which generated this result transmitted reference range : 0.0 - 100.0 WHO Units. The reference range was not used to interpret this result as normal/abnormal . JUAN LUIS (test code = Interpretation: JUAN LUIS) Negative: ?<= 100 WHO UnitsPositive: ? > 100 WHO Units A positive result indicates the presence of TPO antibodies and suggests thepossibility of Nayeli's thyroiditis and/or Graves' disease. ?A negativeresult indicates no TPO antibodies or levels below the negative cut-off ofthe assay. ?The presence of antibodies to TPO can be used in conjunction withclinical findings and other laboratory tests to aid in the diagnosis ofautoimmune thyroid diseases such as Nayeli's thyroiditis and Graves'disease. Lab Interpretation Normal (test code = 08700-8) [facility]PO[facility] [id number] 23:58:26 Test Item Value Reference Interpretation Comments Range TPO Ab IgG (test See_Comment [Automated code = 1586957033) message] The system which generated this result transmitted reference range : 0.0 - 100.0 WHO Units. The reference range was not used to interpret this result as normal/abnormal . JUAN LUIS (test code = Interpretation: JUAN LUIS) Negative: ?<= 100 WHO UnitsPositive: ? > 100 WHO Units A positive result indicates the presence of TPO antibodies and suggests thepossibility of Nayeli's thyroiditis and/or Graves' disease. ?A negativeresult indicates no TPO antibodies or levels below the negative cut-off ofthe assay. ?The presence of antibodies to TPO can be used in conjunction withclinical findings and other laboratory tests to aid in the diagnosis ofautoimmune thyroid diseases such as Nayeli's thyroiditis and Graves'disease. Lab Interpretation Normal (test code = 55327-9) [facility]PO[facility] [id number] 23:58:26 Test Item Value Reference Interpretation Comments Range TPO Ab IgG (test See_Comment [Automated code = 3119020333) message] The system which generated this result transmitted reference range : 0.0 - 100.0 WHO Units. The reference range was not used to interpret this result as normal/abnormal . JUAN LUIS (test code = Interpretation: JUAN LUIS) Negative: ?<= 100 WHO UnitsPositive: ? > 100 WHO Units A positive result indicates the presence of TPO antibodies and suggests thepossibility of Nayeli's thyroiditis and/or Graves' disease. ?A negativeresult indicates no TPO antibodies or levels below the negative cut-off ofthe assay. ?The presence of antibodies to TPO can be used in conjunction withclinical findings and other laboratory tests to aid in the diagnosis ofautoimmune thyroid diseases such as Nayeli's thyroiditis and Graves'disease. Lab Interpretation Normal (test code = 85720-0) [facility]2020-11-04 22:59:44 Test Item Value Reference Range Interpretation Comments POCT GLU (test code = 7613861476) 89 mg/dL 70-110 Lab Interpretation (test code = Normal 63174-2) [facility] [id number] 22:07:20 The contrast material is identified in the small bowel loops at the midpelvis. Preliminary Report Dictated by Resident: Milton Armendariz ?MD. Dougie, have reviewed this study and agree withthe above report.EXAM: XR KUB HISTORY: 65 years-old Male presenting for contrast given, want toassessbowel opacification prior to G-tube placement COMPARISON: Abdomen radiograph most recent 11/02/2020 TECHNIQUE: Frontal views of the abdomen and pelvis were obtained. FINDINGS: A Dobbhoff tube with the tip and sidehole terminates at the gastric body.Midline sternotomy sutures are partially visualized. The contrast material is seen at the small bowel loops at the mid pelvis.No evidence of dilatedbowel. Nonobstructive bowel gas pattern. No abnormalcalcifications or radiopaque stones are identified. Right hip arthroplasty.Lumbar spine spondylotic changes. Soft tissues are unremarkable. [facility], Radiant Results Inft User - 11/04/2020 5:08 PM CDTEXAM: XR KUBHISTORY: 65 years-old Male presenting forcontrast given, want to assessbowel opacification prior to G-tube placement COMPARISON: Abdomen radio graph most recent 11/02/2020TECHNIQUE: Frontal views of the abdomen and pelvis were obtained.FINDINGS:A Dobbhoff tube with the tip and sidehole terminates at the gastric body.Midline sternotomy sutures are partially visualized.The contrast material is seen at the small bowel loops at the mid pelvis.No evidence of dilated bowel. Nonobstructive bowel gas pattern. No abnormalcalcifications or radiopaque stones are identified. Right hip arthroplasty.Lumbar spine spondylotic changes. Soft tissues are unremarkable.IMPRESSIONThe contrast material is identified in the small bowel loops at the midpelvis.Preliminary Report Dictated by Resident: Milton Stovall MD., have reviewed thisstudy and agree withthe above report.[facility] [id number] 22:07:20 The contrast material is identified in the small bowel loops at the midpelvis. Preliminary Report Dictated by Resident: Milton Armendariz MD., have reviewed this study and agree withthe above report.EXAM: XR KUB HISTORY: 65 years-old Male presenting for contrast given, want toassessbowel opacification prior to G-tube placement COMPARISON: Abdomen radiograph most recent 11/02/2020 TECHNIQUE: Frontal views of the abdomen and pelvis were obtained. FINDINGS: A Dobbhoff tube with the tip and sidehole terminates at the gastric body.Midline sternotomy sutures are partially visualized. The contrast material is seen at the small bowel loops at the mid pelvis.No evidence of dilatedbowel. Nonobstructive bowel gas pattern. No abnormalcalcifications or radiopaque stones are identified. Right hip arthroplasty.Lumbar spine spondylotic changes. Soft tissues are unremarkable. [facility], Radiant Results Inft User - 11/04/2020 5:08 PM CDTEXAM: XR KUBHISTORY: 65 years-old Male presenting forcontrast given, want to assessbowel opacification prior to G-tube placement COMPARISON: Abdomen radiograph most recent 11/02/2020TECHNIQUE: Frontal views of the abdomen and pelvis were obtained.FINDINGS:A Dobbhoff tube with the tip and sidehole terminates at the gastric body.Midline sternotomy sutures are partially visualized.The contrast material is seen at the small bowel loops at the mid pelvis.No evidence of dilated bowel. Nonobstructive bowel gas pattern. No abnormalcalcifications or radiopaque stones are identified. Right hip arthroplasty.Lumbar spine spondylotic changes. Soft tissues are unremarkable.IMPRESSIONThe contrast material is identified in the small bowel loops at the midpelvis.Preliminary Report Dictated by Resident: Milton Stovall MD., have reviewed thisstudy and agree withthe above report.[facility] [id number] 22:07:20 The contrast material is identified in the small bowel loops at the midpelvis. Preliminary Report Dictated by Resident: Milton Armendariz MD., have reviewed this study and agree withthe above report.EXAM: XR KUB HISTORY: 65 years-old Male presenting for contrast given, want toassessbowel opacification prior to G-tube placement COMPARISON: Abdomen radiograph most recent 11/02/2020 TECHNIQUE: Frontal views of the abdomen and pelvis were obtained. FINDINGS: A Dobbhoff tube with the tip and sidehole terminates at the gastric body.Midline sternotomy sutures are partially visualized. The contrast material is seen at the small bowel loops at the mid pelvis.No evidence of dilatedbowel. Nonobstructive bowel gas pattern. No abnormalcalcifications or radiopaque stones are identified. Right hip arthroplasty.Lumbar spine spondylotic changes. Soft tissues are unremarkable. [facility], Radiant Results Inft User - 11/04/2020 5:08 PM CDTEXAM: XR KUBHISTORY: 65 years-old Male presenting forcontrast given, want to assessbowel opacification prior to G-tube placement COMPARISON: Abdomen radiograph most recent 11/02/2020TECHNIQUE: Frontal views of the abdomen and pelvis were obtained.FINDINGS:A Dobbhoff tube with the tip and sidehole terminates at the gastric body.Midline sternotomy sutures are partially visualized.The contrast material is seen at the small bowel loops at the mid pelvis.No evidence of dilated bowel. Nonobstructive bowel gas pattern. No abnormalcalcifications or radiopaque stones are identified. Right hip arthroplasty.Lumbar spine spondylotic changes. Soft tissues are unremarkable.IMPRESSIONThe contrast material is identified in the small bowel loops at the midpelvis.Preliminary Report Dictated by Resident: Milton Stovall MD., have reviewed thisstudy and agree withthe above report.[facility]2020-11-04 16:52:36 Test Item Value Reference Range Interpretation Comments POCT GLU (test code = 8936862470) 134 mg/dL 70-110 H Lab Interpretation (test code = Abnormal 38684-1) [facility] / [id number] 16:29:11 Test Item Value Reference Range Interpretation Comments PROTIME PATIENT (test See_Comment H [Auto mated message] code = 5964-2) The system [employer] generated this result transmitted ref erence range: 10.1 - 1 2.6 Seconds. The reference range was not used to int erpret this result as normal/abnormal . INR (test code = 6301-6) Nor mal INR <1.1; Warfarin Therap eutic range 2.0 to 3. 0 or 2.5 to 3.5, dep ending upon the indica tions. Lab Interpretation (test Abnormal code = 65461-2) [facility] / [id number] 16:29:11 Test Item Value Reference Range Interpretation Comments PROTIME PATIENT (test See_Comment H [Auto mated message] code = 5964-2) The system [employer] generated this result transmitted ref erence range: 10.1 - 1 2.6 Seconds. The reference range was not used to int erpret this result as normal/abnormal . INR (test code = 6301-6) Nor mal INR <1.1; Warfarin Therap eutic range 2.0 to 3. 0 or 2.5 to 3.5, dep ending upon the indica tions. Lab Interpretation (test Abnormal code = 63566-8) [facility] / [id number] 16:29:11 Test Item Value Reference Range Interpretation Comments PROTIME PATIENT (test See_Comment H [Auto mated message] code = 5964-2) The system [employer] generated this result transmitted ref erence range: 10.1 - 1 2.6 Seconds. The reference range was not used to int erpret this result as normal/abnormal . INR (test code = 6301-6) Nor mal INR <1.1; Warfarin Therap eutic range 2.0 to 3. 0 or 2.5 to 3.5, dep ending upon the indica tions. Lab Interpretation (test Abnormal code = 29676-7) [facility] GLUCOSE (AUTOMATED)2020-11-04 15:23:28 Test Item Value Reference Range Interpretation Comments POCT GLU (test code = 1208077397) 144 mg/dL 70-110 H Lab Interpretation (test code = Abnormal 07973-7) [facility] METABOLIC PANEL (NA, K, CL, CO2, GLUCOSE, BUN, CREATININE, CA)2020-11-04 10:53:10 Test Item Value Reference Range Interpretation Comments NA (test code = 151 mmol/L 135-145 H 6852544205) K (test code = 3.8 mmol/L 3.5-5.0 5035063142) CL (test code = 119 mmol/L 98-108 H 7462818451) CO2 TOTAL (test code = 27 mmol/L 23-31 9321889512) AGAP (test code = 2-16 6343096371) BUN (test code = 48 mg/dL 7-23 H 2426719542) GLUCOSE (test code = 131 mg/dL 70-110 H 0748223806) CREATININE (test code = 1.36 mg/dL 0.60-1.25 H 5157365171) CALCIUM (test code = 8.1 mg/dL 8.6-10.6 L 8147983907) eGFR (test code = mL/min/1.73m2 7488471046) JUAN LUIS (test code = JUAN LUIS) Association of Glomerular Filtration Rate (GFR) and Staging of Kidney Disease* + --+ --+ ------+| GFR (mL/min/1.73 m2) ?| With Kidney Damage ?| ?Without Kidney Damage+ --------+ --------+ +| ?>90 ?| ?Stage one ?| ? Normal ?+ ---+ ---+ -------+| ?60-89 ?| ?Stage two ?| ? Decreased GFR ? + --+ --+ ------+| ?30-59 ?| ?Stage three ?| ? Stage three ? + --+ --+ ------+| ?15-29 ?| ?Stage four ? | ? Stage four ?+ ---+ ---+ -------+| ?<15 (or dialysis) ? ?| ?Stage five ? | ? Stage five ?+ ---+ ---+ -------+ *Each stage assumes the associated GFR level has been in effect for at least three months. ?Stages 1 to 5, with or without kidney disease, indicate chronic kidney disease. Notes: Determination of stages one and two (with eGFR >59mL/min/1.73 m2) requires estimation of kidney damage for at least three months as defined by structural or functional abnormalities of the kidney, manifested by either:Pathological abnormalities or Markers of kidney damage (including abnormalities in the composition of the blood or urine or abnormalities in imaging tests). Lab Interpretation Abnormal (test code = 19111-0) [facility] 10:48:27 Test Item Value Reference Range Interpretation Comments MAGNESIUM (test code = 2743825004) 2.6 mg/dL 1.7-2.4 H Lab Interpretation (test code = Abnormal 55405-5) [facility] [id number] 10:27:45 Test Item Value Reference Range Interpretation Comments WBC (test code = See_Comment H [Automated message] 6690-2) The system [employer] generated this result transmitted ref erence range: 4.20 - 1 0.70 10*3/?L. The reference range was not used to int erpret this result as normal/abnormal . RBC (test code = 789-8) See_Comment L [Au tomated message] The system [employer] generated this result transmitted ref erence range: 4.26 - 5 .52 10*6/?L. The reference range was not used to int erpret this result as normal/abnormal . HGB (test code = 718-7) 8.1 g/dL 12.2-16.4 L HCT (test code = 25.7 % 38.4-49.3 L 4544-3) MCH (test code = 785-6) 25.5 pg 26.1-32.7 L MCV (test code = 787-2) 80.8 fL 81.7-95.6 L MCHC (test code = 31.5 g/dL 31.2-35.0 786-4) PLT (test code = 777-3) See_Comment [Au tomated message] The system [employer] generated this result transmitted ref erence range: 150 - 32 8 10*3/?L. The reference range was not used to int erpret this result as normal/abnormal . MPV (test code = Not Measure d 10145-6) RDW-CV (test code = 24.3 % 12.1-15.4 H 788-0) RDW-SD (test code = 68.2 fL 38.5-51.6 H 06122-5) NRBC x10^3 (test code = See_Comment [Au tomated message] 6704137302) The system [employer] generated this result transmitted ref erence range: 10*3/?L. The reference range was not used to int erpret this result as normal/abnormal . NRBC/100 WBC (test code See_Comment [Au tomated message] = 1238023237) The system [employer] generated this result transmitted ref erence range: 0.0 - 10 .0 /100 WBCs. The reference range was not used to int erpret this result as normal/abnormal . IPF % (test code = 10.2 % 1.2-10.7 Platelet count 4675580342) measured by fluorescence me thod. Lab Interpretation Abnormal (test code = 57013-1) [facility] GLUCOSE (AUTOMATED)2020-11-03 16:55:39 Test Item Value Reference Range Interpretation Comments POCT GLU (test code = 0952750883) 123 mg/dL 70-110 H Lab Interpretation (test code = Abnormal 48694-4) [facility] METABOLIC PANEL (NA, K, CL, CO2, GLUCOSE, BUN, CREATININE, CA)2020-11-03 13:46:00 Test Item Value Reference Range Interpretation Comments NA (test code = 148 mmol/L 135-145 H 5489126875) K (test code = 4.7 mmol/L 3.5-5.0 1479488639) CL (test code = 120 mmol/L 98-108 H 7809193778) CO2 TOTAL (test code = 26 mmol/L 23-31 9803701920) AGAP (test code = 2-16 6479563377) BUN (test code = 47 mg/dL 7-23 H 4537334340) GLUCOSE (test code = 176 mg/dL 70-110 H 1373078665) CREATININE (test code = 1.35 mg/dL 0.60-1.25 H 1646826324) CALCIUM (test code = 8.0 mg/dL 8.6-10.6 L 2965133225) eGFR (test code = mL/min/1.73m2 9553551500) JUAN LUIS (test code = JUAN LUIS) Association of Glomerular Filtration Rate (GFR) and Staging of Kidney Disease* + --+ --+ ------+| GFR (mL/min/1.73 m2) ?| With Kidney Damage ?| ?Without Kidney Damage+ --------+ --------+ +| ?>90 ?| ?Stage one ?| ? Normal ?+ ---+ ---+ -------+| ?60-89 ?| ?Stage two ?| ? Decreased GFR ? + --+ --+ ------+| ?30-59 ?| ?Stage three ?| ? Stage three ? + --+ --+ ------+| ?15-29 ?| ?Stage four ? | ? Stage four ?+ ---+ ---+ -------+| ?<15 (or dialysis) ? ?| ?Stage five ? | ? Stage five ?+ ---+ ---+ -------+ *Each stage assumes the associated GFR level has been in effect for at least three months. ?Stages 1 to 5, with or without kidney disease, indicate chronic kidney disease. Notes: Determination of stages one and two (with eGFR >59mL/min/1.73 m2) requires estimation of kidney damage for at least three months as defined by structural or functional abnormalities of the kidney, manifested by either:Pathological abnormalities or Markers of kidney damage (including abnormalities in the composition of the blood or urine or abnormalities in imaging tests). Lab Interpretation Abnormal (test code = 36854-2) [facility] 13:34:53 Test Item Value Reference Range Interpretation Comments MAGNESIUM (test code = 2684834589) 2.8 mg/dL 1.7-2.4 H Lab Interpretation (test code = Abnormal 18803-7) [facility]2020-11-03 12:57:44 Test Item Value Reference Range Interpretation Comments POCT GLU (test code = 0747013122) 190 mg/dL 70-110 H Lab Interpretation (test code = Abnormal 62191-6) [facility] WITH [id number] 11:16:10 Test Item Value Reference Range Interpretation Comments WBC (test code = See_Comment H [Automated 6690-2) message] The sy stem which generated this result transmitted reference range : 4.20 - 10.70 10*3/?L. The reference range was not used to interpret this result as normal/abnormal . RBC (test code = See_Comment L [Automated 789-8) message] The sy stem which generated this result transmitted reference range : 4.26 - 5.52 10*6/?L. The reference range was not used to interpret this result as normal/abnormal . HGB (test code = 7.8 g/dL 12.2-16.4 L 718-7) HCT (test code = 24.4 % 38.4-49.3 L 4544-3) MCV (test code = 77.5 fL 81.7-95.6 L 787-2) MCH (test code = 24.8 pg 26.1-32.7 L 785-6) MCHC (test code = 32.0 g/dL 31.2-35.0 786-4) RDW-SD (test code = 62.2 fL 38.5-51.6 H 70443-3) RDW-CV (test code = 23.3 % 12.1-15.4 H 788-0) PLT (test code = See_Comment [Automated 777-3) message] The sy stem which generated this result transmitted reference range : 150 - 328 10*3/ ?L. The reference r christine was not used to interpret this result as normal/abnormal . MPV (test code = Not Measure d 18037-1) IPF % (test code = 8.2 % 1.2-10.7 Platelet count 7207948389) measured by fluorescence method. NRBC/100 WBC (test See_Comment [Automat ed code = 2284831460) message] The system which generated this result transmitted reference range : 0.0 - 10.0 /100 WBCs. The refer ence range was not u sed to interpret th is result as normal/abnormal . NRBC x10^3 (test code See_Comment [Auto mated = 7176107466) message] The s ystem which generated this result transmitted reference range : 10*3/?L. The reference range was not used to interpret this result as normal/abnormal . GRAN MAT (NEUT) % 80.9 % (test code = 770-8) IMM GRAN % (test code 0.50 % = 7901212522) LYMPH % (test code = 5.3 % 736-9) MONO % (test code = 11.6 % 5905-5) EOS % (test code = 1.5 % 713-8) BASO % (test code = 0.2 % 706-2) GRAN MAT x10^3(ANC) 10.75 10*3/uL 1.99-6.95 H (test code = 6032071292) IMM GRAN x10^3 (test 0.06 10*3/uL 0.00-0.06 code = 5683568086) LYMPH x10^3 (test 0.71 10*3/uL 1.09-3.23 L code = 731-0) MONO x10^3 (test code 1.54 10*3/uL 0.36-1.02 H = 742-7) EOS x10^3 (test code 0.20 10*3/uL 0.06-0.53 = 711-2) BASO x10^3 (test code 0.03 10*3/uL 0.01-0.09 = 704-7) BASO STIPPLING (test Present A code = 703-9) SCHISTOCYTES (test 1+ A code = 800-3) Lab Interpretation Abnormal (test code = 10424-2) [facility] WITH [id number] 11:16:10 Test Item Value Reference Range Interpretation Comments WBC (test code = See_Comment H [Automated 9876-2) message] The sy stem which generated this result transmitted reference range : 4.20 - 10.70 10*3/?L. The reference range was not used to interpret this result as normal/abnormal . RBC (test code = See_Comment L [Automated 955-8) message] The sy stem which generated this result transmitted reference range : 4.26 - 5.52 10*6/?L. The reference range was not used to interpret this result as normal/abnormal . HGB (test code = 7.8 g/dL 12.2-16.4 L 718-7) HCT (test code = 24.4 % 38.4-49.3 L 4544-3) MCV (test code = 77.5 fL 81.7-95.6 L 787-2) MCH (test code = 24.8 pg 26.1-32.7 L 785-6) MCHC (test code = 32.0 g/dL 31.2-35.0 786-4) RDW-SD (test code = 62.2 fL 38.5-51.6 H 00606-2) RDW-CV (test code = 23.3 % 12.1-15.4 H 788-0) PLT (test code = See_Comment [Automated 777-3) message] The sy stem which generated this result transmitted reference range : 150 - 328 10*3/ ?L. The reference r christine was not used to interpret this result as normal/abnormal . MPV (test code = Not Measure d 62582-8) IPF % (test code = 8.2 % 1.2-10.7 Platelet count 5539065909) measured by fluorescence method. NRBC/100 WBC (test See_Comment [Automat ed code = 0656326340) message] The system which generated this result transmitted reference range : 0.0 - 10.0 /100 WBCs. The refer ence range was not u sed to interpret th is result as normal/abnormal . NRBC x10^3 (test code See_Comment [Auto mated = 0810698776) message] The s ystem which generated this result transmitted reference range : 10*3/?L. The reference range was not used to interpret this result as normal/abnormal . GRAN MAT (NEUT) % 80.9 % (test code = 770-8) IMM GRAN % (test code 0.50 % = 9880376035) LYMPH % (test code = 5.3 % 736-9) MONO % (test code = 11.6 % 5905-5) EOS % (test code = 1.5 % 713-8) BASO % (test code = 0.2 % 706-2) GRAN MAT x10^3(ANC) 10.75 10*3/uL 1.99-6.95 H (test code = 3657923471) IMM GRAN x10^3 (test 0.06 10*3/uL 0.00-0.06 code = 4304150407) LYMPH x10^3 (test 0.71 10*3/uL 1.09-3.23 L code = 731-0) MONO x10^3 (test code 1.54 10*3/uL 0.36-1.02 H = 742-7) EOS x10^3 (test code 0.20 10*3/uL 0.06-0.53 = 711-2) BASO x10^3 (test code 0.03 10*3/uL 0.01-0.09 = 704-7) BASO STIPPLING (test Present A code = 703-9) SCHISTOCYTES (test 1+ A code = 800-3) Lab Interpretation Abnormal (test code = 67179-0) [facility] GLUCOSE (AUTOMATED)2020-11-03 10:14:51 Test Item Value Reference Range Interpretation Comments POCT GLU (test code = 6528616046) 198 mg/dL 70-110 H Lab Interpretation (test code = Abnormal 13147-7) [facility] GLUCOSE (AUTOMATED)2020-11-03 04:39:58 Test Item Value Reference Range Interpretation Comments POCT GLU (test code = 1724041931) 169 mg/dL 70-110 H Lab Interpretation (test code = Abnormal 19816-2) [facility] METABOLIC PANEL (NA, K, CL, CO2, GLUCOSE, BUN, CREATININE, CA)2020-11-03 02:59:33 Test Item Value Reference Range Interpretation Comments NA (test code = 150 mmol/L 135-145 H 9064396841) K (test code = 4.8 mmol/L 3.5-5.0 Slight 1965147914) hemolysis CL (test code = 121 mmol/L 98-108 H 3511602241) CO2 TOTAL (test code 24 mmol/L 23-31 = 2211231894) AGAP (test code = 2-16 2266246572) BUN (test code = 48 mg/dL 7-23 H Slight 4137903045) hemolysis GLUCOSE (test code = 135 mg/dL 70-110 H 2155866049) CREATININE (test code 1.25 mg/dL 0.60-1.25 = 9605135265) CALCIUM (test code = 7.7 mg/dL 8.6-10.6 L 3903418312) eGFR (test code = mL/min/1.73m2 9949147667) JUAN LUIS (test code = JUAN LUIS) Association of Glomerular Filtration Rate (GFR) and Staging of Kidney Disease* + -----+ --------+ +| GFR (mL/min/1.73 m2) ?| With Kidney Damage ?| ?Without Kidney Damage+ +------- +---- --+| ?>90 ?| ?Stage one ?| ? Normal ?+ ------+ ---------+--------- +| ?60-89 ?| ?Stage two ?| ? Decreased GFR ? + -----+ --------+ +| ?30-59 ?| ?Stage three ?| ? Stage three ? + -----+ --------+ +| ?15-29 ?| ?Stage four ? | ? Stage four ?+ ------+ ---------+--------- +| ?<15 (or dialysis) ? ?| ?Stage five ? | ? Stage five ?+ ------+ ---------+--------- + *Each stage assumes the associated GFR level has been in effect for at least three months. ?Stages 1 to 5, with or without kidney disease, indicate chronic kidney disease. Notes: Determination of stages one and two (with eGFR >59mL/min/1.73 m2) requires estimation of kidney damage for at least three months as defined by structural or functional abnormalities of the kidney, manifested by either:Pathological abnormalities or Markers of kidney damage (including abnormalities in the composition of the blood or urine or abnormalities in imaging tests). Lab Interpretation Abnormal (test code = 67904-5) [facility] Test Item Value Reference Range Interpretation Comments MAGNESIUM (test code = 5361134697) 2.5 mg/dL 1.7-2.4 H Lab Interpretation (test code = Abnormal 46419-1) [facility] BY [id number] 23:12:08 Test Item Value Reference Range Interpretation Comments Escherichia coli K1 Negative Negative, (test code = 26368-6) Indeterminate, See Comment Haemophilus influenzae Negative Negative, (test code = 13140-1) Indeterminate, See Comment Listeria monocytogenes Negative Negative, (test code = 91224-8) Indeterminate, See Comment Neisseria meningitidis Negative Negative, (encapsulated) (test Indeterminate, code = 22713-8) See Comment Streptococcus agalactiae Negative Negative, (test code = 05489-1) Indeterminate, See Comment Streptococcus pneumoniae Negative Negative, (test code = 16530-9) Indeterminate, See Comment Cytomegalovirus (test Negative Negative, code = 50350-1) Indeterminate, See Comment Enterovirus (test code = Negative Negative, 66353-7) Indeterminate, See Comment Herpes simplex virus 1 Negative Negative, (test code = 33130-6) Indeterminate, See Comment Herpes simplex virus 2 Negative Negative, (test code = 22288-2) Indeterminate, See Comment Human herpesvirus 6 Negative Negative, (test code = 59459-9) Indeterminate, See Comment Human parechovirus (test Negative Negative, code = 86840-1) Indeterminate, See Comment Varicella zoster virus Negative Negative, (test code = 96544-6) Indeterminate, See Comment Cryptococcus Negative Negative, neoformans/gattii (test Indeterminate, code = 03621-2) See Comment JUAN LUIS (test code = JUAN LUIS) Negative:A negative result does not rule-out infection. ?This assay does not test for all potential infectious agents. Positive:A positive test result does not necessarily indicate the presence of viable organism. ? Lab Interpretation (test Normal code = 08240-6) [facility] PAN[facility] BY [id number] 23:12:08 Test Item Value Reference Range Interpretation Comments Escherichia coli K1 Negative Negative, (test code = 71363-3) Indeterminate, See Comment Haemophilus influenzae Negative Negative, (test code = 34066-6) Indeterminate, See Comment Listeria monocytogenes Negative Negative, (test code = 72344-8) Indeterminate, See Comment Neisseria meningitidis Negative Negative, (encapsulated) (test Indeterminate, code = 19138-9) See Comment Streptococcus agalactiae Negative Negative, (test code = 10159-6) Indeterminate, See Comment Streptococcus pneumoniae Negative Negative, (test code = 12037-9) Indeterminate, See Comment Cytomegalovirus (test Negative Negative, code = 35051-3) Indeterminate, See Comment Enterovirus (test code = Negative Negative, 33135-6) Indeterminate, See Comment Herpes simplex virus 1 Negative Negative, (test code = 22872-5) Indeterminate, See Comment Herpes simplex virus 2 Negative Negative, (test code = 35755-9) Indeterminate, See Comment Human herpesvirus 6 Negative Negative, (test code = 09785-5) Indeterminate, See Comment Human parechovirus (test Negative Negative, code = 90098-9) Indeterminate, See Comment Varicella zoster virus Negative Negative, (test code = 26740-7) Indeterminate, See Comment Cryptococcus Negative Negative, neoformans/gattii (test Indeterminate, code = 40205-0) See Comment JUAN LUIS (test code = JUAN LUIS) Negative:A negative result does not rule-out infection. ?This assay does not test for all potential infectious agents. Positive:A positive test result does not necessarily indicate the presence of viable organism. ? Lab Interpretation (test Normal code = 70750-5) [facility] BY [id number] 23:12:08 Test Item Value Reference Range Interpretation Comments Escherichia coli K1 Negative Negative, (test code = 52619-1) Indeterminate, See Comment Haemophilus influenzae Negative Negative, (test code = 79885-2) Indeterminate, See Comment Listeria monocytogenes Negative Negative, (test code = 10175-5) Indeterminate, See Comment Neisseria meningitidis Negative Negative, (encapsulated) (test Indeterminate, code = 99366-4) See Comment Streptococcus agalactiae Negative Negative, (test code = 70836-7) Indeterminate, See Comment Streptococcus pneumoniae Negative Negative, (test code = 79006-5) Indeterminate, See Comment Cytomegalovirus (test Negative Negative, code = 09280-0) Indeterminate, See Comment Enterovirus (test code = Negative Negative, 30853-5) Indeterminate, See Comment Herpes simplex virus 1 Negative Negative, (test code = 31826-9) Indeterminate, See Comment Herpes simplex virus 2 Negative Negative, (test code = 55483-0) Indeterminate, See Comment Human herpesvirus 6 Negative Negative, (test code = 59158-5) Indeterminate, See Comment Human parechovirus (test Negative Negative, code = 68413-8) Indeterminate, See Comment Varicella zoster virus Negative Negative, (test code = 53999-5) Indeterminate, See Comment Cryptococcus Negative Negative, neoformans/gattii (test Indeterminate, code = 83598-7) See Comment JUAN LUIS (test code = JUAN LUIS) Negative:A negative result does not rule-out infection. ?This assay does not test for all potential infectious agents. Positive:A positive test result does not necessarily indicate the presence of viable organism. ? Lab Interpretation (test Normal code = 99785-3) [facility]:21:28 Test Item Value Reference Range Interpretation Comments POCT GLU (test code = 2605530202) 94 mg/dL 70-110 Lab Interpretation (test code = Normal 95524-7) [facility] FLUID DIRECT [id number] 22:15:37 Test Item Value Reference Range Interpretation Comments BF COLOR (test code = Clear 7710819009) BF WBC Count (test See_Comment [Automat ed message] The code = 7096979383) system [facility] generated this result transmit tennille reference range : 0 - 5 /?L. The reference r christine was not used to interpr et this result as bri l/abnormal. BF RBC Count (test See_Comment [Automat ed message] The code = 5123136539) system [facility] generated this result transmit tennille reference range : /?L. The reference range was not used to interpr et this result as bri l/abnormal. [facility] FLUID DIRECT [id number] 22:15:37 Test Item Value Reference Range Interpretation Comments BF COLOR (test code = Clear 1759005621) BF WBC Count (test See_Comment [Automat ed message] The code = 6298382009) system [facility] generated this result transmit tennille reference range : 0 - 5 /?L. The reference r christine was not used to interpr et this result as bri l/abnormal. BF RBC Count (test See_Comment [Automat ed message] The code = 3956023462) system [facility] generated this result transmit tennille reference range : /?L. The reference range was not used to interpr et this result as bri l/abnormal. [facility] FLUID DIRECT [id number] 22:15:37 Test Item Value Reference Range Interpretation Comments BF COLOR (test code = Clear 1030973191) BF WBC Count (test See_Comment [Automat ed message] The code = 0643720518) system [facility] generated this result transmit tennille reference range : 0 - 5 /?L. The reference r christine was not used to interpr et this result as bri l/abnormal. BF RBC Count (test See_Comment [Automat ed message] The code = 9892222499) system wh ich generated this result transmit tennille reference range : /?L. The reference range was not used to interpr et this result as bri l/abnormal. [facility] [id number] 22:15:37#CELS CNTDUTMB LABORATORY SERVICESLess than 100 cells counted due to low WBC; Differential is not reported in percent. ?44 cells counted: ?0 Neutrophils, 17 Lymphocytes, 27 [facility]rophagesUnHar[facility] FLUID MANUAL [id number] 22:15:37#CELS CNTDUTMB LABORATORY SERVICESLess than 100 cells counted due to low WBC; Differential is not reported in percent. ?44 cells counted: ?0 Neutrophils, 17 Lymphocytes, 27 MacrophagesUnHarlingen Medical Center FLUID MANUAL [id number] 22:15:37#CELS CNTDUTMB LABORATORY SERVICESLess than 100 cells counted due to low WBC; Differential is not reported in percent. ?44 cells counted: ?0 Neutrophils, 17 Lymphocytes, 27 Macrophages [facility] [id number] 21:46:09 Test Item Value Reference Range Interpretation Comments GLU CSF (test code = 6344621242) 80 mg/dL 50-80 UNSPUN BODY FLUID COLOR (test Colorless code = 7948882452) UNSPUN BODY FLUID CLARITY (test Clear code = 8014265121) SPUN BODY FLUID COLOR (test code Colorless = 2759304408) SPUN BODY FLUID CLARITY (test Clear code = 7307924614) Sediment (test code = No sediment. 5745302694) [facility] [id number] 21:46:09 Test Item Value Reference Range Interpretation Comments GLU CSF (test code = 6021091956) 80 mg/dL 50-80 UNSPUN BODY FLUID COLOR (test Colorless code = 5870373413) UNSPUN BODY FLUID CLARITY (test Clear code = 5735783745) SPUN BODY FLUID COLOR (test code Colorless = 4051276585) SPUN BODY FLUID CLARITY (test Clear code = 4047187340) Sediment (test code = No sediment. 1876135128) [facility] [id number] 21:46:09 Test Item Value Reference Range Interpretation Comments GLU CSF (test code = 4360484762) 80 mg/dL 50-80 UNSPUN BODY FLUID COLOR (test Colorless code = 0225436693) UNSPUN BODY FLUID CLARITY (test Clear code = 8399762696) SPUN BODY FLUID COLOR (test code Colorless = 3926404237) SPUN BODY FLUID CLARITY (test Clear code = 7493093539) Sediment (test code = No sediment. 7966371415) [facility] [id number] 21:46:03 Test Item Value Reference Range Interpretation Comments T. PRO CSF (test code = 103.0 mg/dL 15.0-45.0 H 5084272653) UNSPUN BODY FLUID COLOR (test Colorless code = 6410260483) UNSPUN BODY FLUID CLARITY (test Clear code = 5205466635) SPUN BODY FLUID COLOR (test code Colorless = 7174052028) SPUN BODY FLUID CLARITY (test Clear code = 1876051547) Sediment (test code = No sediment. 0888443369) Lab Interpretation (test code = Abnormal 77477-4) [facility] [id number] 21:46:03 Test Item Value Reference Range Interpretation Comments T. PRO CSF (test code = 103.0 mg/dL 15.0-45.0 H 9721755125) UNSPUN BODY FLUID COLOR (test Colorless code = 8449116863) UNSPUN BODY FLUID CLARITY (test Clear code = 7985576699) SPUN BODY FLUID COLOR (test code Colorless = 4040465582) SPUN BODY FLUID CLARITY (test Clear code = 5367684375) Sediment (test code = No sediment. 1898464186) Lab Interpretation (test code = Abnormal 86507-6) [facility] [id number] 21:46:03 Test Item Value Reference Range Interpretation Comments T. PRO CSF (test code = 103.0 mg/dL 15.0-45.0 H 3355399250) UNSPUN BODY FLUID COLOR (test Colorless code = 9726885008) UNSPUN BODY FLUID CLARITY (test Clear code = 3274044577) SPUN BODY FLUID COLOR (test code Colorless = 3785159391) SPUN BODY FLUID CLARITY (test Clear code = 0779322305) Sediment (test code = No sediment. 6526771371) Lab Interpretation (test code = Abnormal 20427-2) [facility] METABOLIC PANEL (NA, K, CL, CO2, GLUCOSE, BUN, CREATININE, CA)2020-11-02 18:27:27 Test Item Value Reference Range Interpretation Comments NA (test code = 152 mmol/L 135-145 H 8008867533) K (test code = 3.8 mmol/L 3.5-5.0 0301918640) CL (test code = 123 mmol/L 98-108 H 3852864853) CO2 TOTAL (test code = 23 mmol/L 23-31 6823094277) AGAP (test code = 2-16 1404133688) BUN (test code = 49 mg/dL 7-23 H 9032153611) GLUCOSE (test code = 150 mg/dL 70-110 H 1978003858) CREATININE (test code = 1.37 mg/dL 0.60-1.25 H 1255736301) CALCIUM (test code = 7.9 mg/dL 8.6-10.6 L 4841529493) eGFR (test code = mL/min/1.73m2 7103818714) JUAN LUIS (test code = JUAN LUIS) Association of Glomerular Filtration Rate (GFR) and Staging of Kidney Disease* + --+ --+ ------+| GFR (mL/min/1.73 m2) ?| With Kidney Damage ?| ?Without Kidney Damage+ --------+ --------+ +| ?>90 ?| ?Stage one ?| ? Normal ?+ ---+ ---+ -------+| ?60-89 ?| ?Stage two ?| ? Decreased GFR ? + --+ --+ ------+| ?30-59 ?| ?Stage three ?| ? Stage three ? + --+ --+ ------+| ?15-29 ?| ?Stage four ? | ? Stage four ?+ ---+ ---+ -------+| ?<15 (or dialysis) ? ?| ?Stage five ? | ? Stage five ?+ ---+ ---+ -------+ *Each stage assumes the associated GFR level has been in effect for at least three months. ?Stages 1 to 5, with or without kidney disease, indicate chronic kidney disease. Notes: Determination of stages one and two (with eGFR >59mL/min/1.73 m2) requires estimation of kidney damage for at least three months as defined by structural or functional abnormalities of the kidney, manifested by either:Pathological abnormalities or Markers of kidney damage (including abnormalities in the composition of the blood or urine or abnormalities in imaging tests). Lab Interpretation Abnormal (test code = 30352-2) [facility] Test Item Value Reference Range Interpretation Comments MAGNESIUM (test code = 2296885648) 2.7 mg/dL 1.7-2.4 H Lab Interpretation (test code = Abnormal 41730-7) [facility] 17:42:23 Test Item Value Reference Range Interpretation Comments MAGNESIUM (test code = 1689213935) 2.6 mg/dL 1.7-2.4 H Lab Interpretation (test code = Abnormal 80396-3) [facility] GLUCOSE (AUTOMATED)2020-11-02 16:39:58 Test Item Value Reference Range Interpretation Comments POCT GLU (test code = 5449538324) 148 mg/dL 70-110 H Lab Interpretation (test code = Abnormal 09162-0) [facility] GLUCOSE (AUTOMATED)2020-11-02 12:48:24 Test Item Value Reference Range Interpretation Comments POCT GLU (test code = 8754746274) 183 mg/dL 70-110 H Lab Interpretation (test code = Abnormal 81406-4) [facility] WITH [id number] 10:59:44 Test Item Value Reference Range Interpretation Comments WBC (test code = See_Comment H [Automated 6690-2) message] The sy stem which generated this result transmitted reference range : 4.20 - 10.70 10*3/?L. The reference range was not used to interpret this result as normal/abnormal . RBC (test code = See_Comment L [Automated 789-8) message] The sy stem which generated this result transmitted reference range : 4.26 - 5.52 10*6/?L. The reference range was not used to interpret this result as normal/abnormal . HGB (test code = 7.7 g/dL 12.2-16.4 L 718-7) HCT (test code = 23.3 % 38.4-49.3 L 4544-3) MCV (test code = 76.6 fL 81.7-95.6 L 787-2) MCH (test code = 25.3 pg 26.1-32.7 L 785-6) MCHC (test code = 33.0 g/dL 31.2-35.0 786-4) RDW-SD (test code = 60.9 fL 38.5-51.6 H 44076-2) RDW-CV (test code = 22.7 % 12.1-15.4 H 788-0) PLT (test code = See_Comment L [Automated 777-3) message] The sy stem which generated this result transmitted reference range : 150 - 328 10*3/ ?L. The reference r christine was not used to interpret this result as normal/abnormal . MPV (test code = Not Measure d 84072-3) IPF % (test code = 9.7 % 1.2-10.7 Platelet count 1330639306) measured by fluorescence method. NRBC/100 WBC (test See_Comment [Automat ed code = 0661061520) message] The system which generated this result transmitted reference range : 0.0 - 10.0 /100 WBCs. The refer ence range was not u sed to interpret th is result as normal/abnormal . NRBC x10^3 (test code See_Comment [Auto mated = 2547144849) message] The s ystem which generated this result transmitted reference range : 10*3/?L. The reference range was not used to interpret this result as normal/abnormal . GRAN MAT (NEUT) % 81.9 % (test code = 770-8) IMM GRAN % (test code 0.80 % = 7198994976) LYMPH % (test code = 6.7 % 736-9) MONO % (test code = 8.4 % 5905-5) EOS % (test code = 2.0 % 713-8) BASO % (test code = 0.2 % 706-2) GRAN MAT x10^3(ANC) 11.65 10*3/uL 1.99-6.95 H (test code = 1625825910) IMM GRAN x10^3 (test 0.11 10*3/uL 0.00-0.06 H code = 8738629916) LYMPH x10^3 (test 0.96 10*3/uL 1.09-3.23 L code = 731-0) MONO x10^3 (test code 1.20 10*3/uL 0.36-1.02 H = 742-7) EOS x10^3 (test code 0.28 10*3/uL 0.06-0.53 = 711-2) BASO x10^3 (test code 0.03 10*3/uL 0.01-0.09 = 704-7) SCHISTOCYTES (test 1+ A code = 800-3) BANDS (test code = Increased A 0478892632) TOXIC CHANGES (test Present A code = 803-7) GIANT PLATELETS (test Present See_Comment A [Auto mated code = 5908-9) message] The system which generated this result transmitted reference range : (none). The reference range was not used to interpret this result as normal/abnormal . Lab Interpretation Abnormal (test code = 29754-6) [facility] METABOLIC PANEL (NA, K, CL, CO2, GLUCOSE, BUN, CREATININE, CA)2020-11-02 10:52:59 Test Item Value Reference Range Interpretation Comments NA (test code = 150 mmol/L 135-145 H 8697740404) K (test code = 4.0 mmol/L 3.5-5.0 3939383961) CL (test code = 121 mmol/L 98-108 H 8181542247) CO2 TOTAL (test code = 22 mmol/L 23-31 L 7868885856) AGAP (test code = 2-16 8433784882) BUN (test code = 49 mg/dL 7-23 H 1399240359) GLUCOSE (test code = 162 mg/dL 70-110 H 8109653557) CREATININE (test code = 1.42 mg/dL 0.60-1.25 H 8965883018) CALCIUM (test code = 7.8 mg/dL 8.6-10.6 L 8317428442) eGFR (test code = mL/min/1.73m2 6482439038) JUAN LUIS (test code = JUAN LUIS) Association of Glomerular Filtration Rate (GFR) and Staging of Kidney Disease* + --+ --+ ------+| GFR (mL/min/1.73 m2) ?| With Kidney Damage ?| ?Without Kidney Damage+ --------+ --------+ +| ?>90 ?| ?Stage one ?| ? Normal ?+ ---+ ---+ -------+| ?60-89 ?| ?Stage two ?| ? Decreased GFR ? + --+ --+ ------+| ?30-59 ?| ?Stage three ?| ? Stage three ? + --+ --+ ------+| ?15-29 ?| ?Stage four ? | ? Stage four ?+ ---+ ---+ -------+| ?<15 (or dialysis) ? ?| ?Stage five ? | ? Stage five ?+ ---+ ---+ -------+ *Each stage assumes the associated GFR level has been in effect for at least three months. ?Stages 1 to 5, with or without kidney disease, indicate chronic kidney disease. Notes: Determination of stages one and two (with eGFR >59mL/min/1.73 m2) requires estimation of kidney damage for at least three months as defined by structural or functional abnormalities of the kidney, manifested by either:Pathological abnormalities or Markers of kidney damage (including abnormalities in the composition of the blood or urine or abnormalities in imaging tests). Lab Interpretation Abnormal (test code = 96295-1) [facility] [id number] 07:23:16 Test Item Value Reference Range Interpretation Comments VIT B12 (test code = 956 pg/mL 240-930 H 5630541400) JUAN LUIS (test code = JUAN LUIS) Biotin has been reported to cause a positive bias, interpret results relative to patient's use of biotin. Lab Interpretation (test Abnormal code = 34985-8) [facility], [id number] 07:23:16 Test Item Value Reference Range Interpretation Comments VIT B12 (test code = 956 pg/mL 240-930 H 1644450920) JUAN LUIS (test code = JUAN LUIS) Biotin has been reported to cause a positive bias, interpret results relative to patient's use of biotin. Lab Interpretation (test Abnormal code = 29218-9) [facility], [id number] 07:23:16 Test Item Value Reference Range Interpretation Comments VIT B12 (test code = 956 pg/mL 240-930 H 5239859280) JUAN LUIS (test code = JUAN LUIS) Biotin has been reported to cause a positive bias, interpret results relative to patient's use of biotin. Lab Interpretation (test Abnormal code = 98000-2) [facility] Test Item Value Reference Range Interpretation Comments FOLATE SER (test code = 7819575027) >20.0 3.0-20.0 H Lab Interpretation (test code = Abnormal 40043-0) [facility] Test Item Value Reference Range Interpretation Comments FOLATE SER (test code = 3187107968) >20.0 3.0-20.0 H Lab Interpretation (test code = Abnormal 66475-1) [facility]00 Test Item Value Reference Range Interpretation Comments FOLATE SER (test code = 3574265758) >20.0 3.0-20.0 H Lab Interpretation (test code = Abnormal 06236-1) [facility]2020-11-02 03:58:01 Test Item Value Reference Range Interpretation Comments POCT GLU (test code = 9698641282) 109 mg/dL 70-110 Lab Interpretation (test code = Normal 60067-5) [facility] [id number] 03:26:53 Test Item Value Reference Range Interpretation Comments TSH (test code = See_Comment Biotin has been [id number]) reported to cau se a negative bias, interpret resul ts relative to pat ient's use of biotin. [Automated mess age] The system [employer] generated this result transmitted ref erence range: 0.45 - 4 .70 mIU/L. The refe rence range was not u sed to interpret this result as normal/abnor mal. Lab Interpretation (test Normal code = 30324-5) [facility] [id number] 03:26:53 Test Item Value Reference Range Interpretation Comments TSH (test code = See_Comment Biotin has been 1287110924) reported to cau se a negative bias, interpret resul ts relative to pat ient's use of biotin. [Automated mess age] The system [employer] generated this result transmitted ref erence range: 0.45 - 4 .70 mIU/L. The refe rence range was not u sed to interpret this result as normal/abnor mal. Lab Interpretation (test Normal code = 60822-8) [facility] [id number] 03:26:53 Test Item Value Reference Range Interpretation Comments TSH (test code = See_Comment Biotin has been 7743952684) reported to cau se a negative bias, interpret resul ts relative to pat ient's use of biotin. [Automated mess age] The system [employer] generated this result transmitted ref erence range: 0.45 - 4 .70 mIU/L. The refe rence range was not u sed to interpret this result as normal/abnor mal. Lab Interpretation (test Normal code = 75960-5) [facility] CULTURE [id number] 01:01:36 Test Item Value Reference Range Interpretation Comments Blood Culture-Aerobic No organisms No growth Previo us (test code = 67286-1) isolated prelim inary verified result was Culture In Progress on 10/27/2020 at 23 02 CDTPrevious preliminary verified result was No growth a t 24 hours on 10/28/2020 at 20 01 CDTPrevious preliminary verified result was No growth a t 48 hours on 10/29/2020 at 20 01 CDTPrevious preliminary verified result was No growth a t 72 hours on 10/30/2020 at 20 01 CDT Blood No organisms No growth Previous Culture-Anaerobic isolated preliminar y (test code = 58743-2) verifi ed result was Culture In Progress on 10/27/2020 at 23 02 CDTPrevious preliminary verified result was No growth a t 24 hours on 10/28/2020 at 20 01 CDTPrevious preliminary verified result was No growth a t 48 hours on 10/29/2020 at 20 01 CDTPrevious preliminary verified result was No growth a t 72 hours on 10/30/2020 at 20 01 CDT Lab Interpretation Normal (test code = 40317-8) [facility] [id number] 01:01:36 Test Item Value Reference Range Interpretation Comments Blood Culture-Aerobic No organisms No growth Previo us (test code = 77115-5) isolated prelim inary verified result was Culture In Progress on 10/27/2020 at 23 02 CDTPrevious preliminary verified result was No growth a t 24 hours on 10/28/2020 at 20 01 CDTPrevious preliminary verified result was No growth a t 48 hours on 10/29/2020 at 20 01 CDTPrevious preliminary verified result was No growth a t 72 hours on 10/30/2020 at 20 01 CDT Blood No organisms No growth Previous Culture-Anaerobic isolated preliminar y (test code = 68252-9) verifi ed result was Culture In Progress on 10/27/2020 at 23 02 CDTPrevious preliminary verified result was No growth a t 24 hours on 10/28/2020 at 20 01 CDTPrevious preliminary verified result was No growth a t 48 hours on 10/29/2020 at 20 01 CDTPrevious preliminary verified result was No growth a t 72 hours on 10/30/2020 at 20 01 CDT Lab Interpretation Normal (test code = 84631-7) [facility] CULTURE [id number] 01:01:36 Test Item Value Reference Range Interpretation Comments Blood Culture-Aerobic No organisms No growth Previo us (test code = 30816-7) isolated prelim inary verified result was Culture In Progress on 10/27/2020 at 23 02 CDTPrevious preliminary verified result was No growth a t 24 hours on 10/28/2020 at 20 01 CDTPrevious preliminary verified result was No growth a t 48 hours on 10/29/2020 at 20 01 CDTPrevious preliminary verified result was No growth a t 72 hours on 10/30/2020 at 20 01 CDT Blood No organisms No growth Previous Culture-Anaerobic isolated preliminar y (test code = 07402-0) verifi ed result was Culture In Progress on 10/27/2020 at 23 02 CDTPrevious preliminary verified result was No growth a t 24 hours on 10/28/2020 at 20 01 CDTPrevious preliminary verified result was No growth a t 48 hours on 10/29/2020 at 20 01 CDTPrevious preliminary verified result was No growth a t 72 hours on 10/30/2020 at 20 01 CDT Lab Interpretation Normal (test code = 71500-6) [facility] CULTURE [id number] 01:01:36 Test Item Value Reference Range Interpretation Comments Blood Culture-Aerobic No organisms No growth Previo us (test code = 46064-0) isolated prelim inary verified result was Culture In Progress on 10/27/2020 at 23 02 CDTPrevious preliminary verified result was No growth a t 24 hours on 10/28/2020 at 20 01 CDTPrevious preliminary verified result was No growth a t 48 hours on 10/29/2020 at 20 01 CDTPrevious preliminary verified result was No growth a t 72 hours on 10/30/2020 at 20 01 CDT Blood No organisms No growth Previous Culture-Anaerobic isolated preliminar y (test code = 10575-0) verifi ed result was Culture In Progress on 10/27/2020 at 23 02 CDTPrevious preliminary verified result was No growth a t 24 hours on 10/28/2020 at 20 01 CDTPrevious preliminary verified result was No growth a t 48 hours on 10/29/2020 at 20 01 CDTPrevious preliminary verified result was No growth a t 72 hours on 10/30/2020 at 20 01 CDT Lab Interpretation Normal (test code = 41531-5) [facility]2020-11-02 00:43:35 Test Item Value Reference Range Interpretation Comments POCT GLU (test code = 5346486586) 204 mg/dL 70-110 H Lab Interpretation (test code = Abnormal 37224-5) [facility] - Duration of test: 20-60 mins; Release to patient: [id number] 00:00:00Date and Time of Procedure: 11/02/2020, 8:47:43 to 9:10:44 REPORT TECHNICAL SUMMARY: The EEG was recorded digitally. Electrodes were applied using the International 10/20 System of electrode placement. Eye movements, respiratory excursions and rhythm strip ECG were monitored on separate channels ofthe ongoing EEG recording. The occipital dominant rhythm consists of moderate amplitude 7-8 Hz activity. More anteriorly, similar as well as faster frequencies are present, including low amplitude 18-22 Hz activities in the anterior leads. There is an excessive amount of 4-8 Hz activity diffusely. There is focal ?slowing in the left fronto- temporal region. Drowsiness does not reveal additional abnormalities. Sleep is not seen. Photic stimulation does not elicit additional abnormalities. IMPRESSION: This EEG is abnormal due to:1) mild diffuse slowing, suggestive of a mild diffuse disturbance in cerebral function.2) focal slowing in the left fronto-temporal head region, suggestive of a focal disturbance in the that region. No electrographic seizures or epileptiform abnormalities are seen. The absence of epileptiform abnormalities in one EEG does not necessarily rule out a diagnosis of epilepsyor the potential for epileptic seizures, however. The diagnostic sensitivity can be increased by a repeat study, which would be appropriate if clinically indicated. The fact that sleep is not seen may d ecrease the diagnostic sensitivity of the test, as some EEG abnormalities are more commonly seen in sleep. Sleep deprivation before an EEG can sometimes ensure sleep before the EEG, and may therefore be beneficial if indicated. Lindsey Rose MD Date of int erpretation: 11/02/2020[facility]ro[facility] ([facility] - Duration of test: 20-60 mins; Release to patient: [id number] 00:00:00Date and Time of Procedure: 11/02/2020, 8:47:43 to 9:10:44 REPORT TECHNICAL SUMMARY: The EEG was recorded digitally. Electrodes were applied using the International 10/20 System of electrode placement. Eye movements, respiratory excursions and rhythm strip ECG were monitored on separate channels ofthe ongoing EEG recording. The occipital dominant rhythm consists of moderate amplitude 7-8 Hz activity. More anteriorly, similar as well as faster frequencies are present, including low amplitude 18-22 Hz activities in the anterior leads. There is an excessive amount of 4-8 Hz activity diffusely. There is focal ?slowing in the left fronto-temporal region. Drowsiness does not reveal additional abnormalities. Sleep is not seen. Photic stimulation does not elicit additional abnormalities. IMPRESSION: This EEG is abnormal due to:1) mild diffuse slowing, suggestive of a mild diffuse disturbance in cerebral function.2) focal slowing in the left fronto-temporal head region, suggestive of a focal disturbance in the that region. No electrographic seizures or epileptiform abnormalities are seen. The absence of epileptiform abnormalities in one EEG does not necessarily rule out a diagnosis of epilepsyor the potential for epileptic seizures, however. The diagnostic sensitivity can be increased by a repeat study, which would be appropriate if clinically indicated. The fact that sleep is not seen may decrease the diagnostic sensitivity of the test, as some EEG abnormalities are more commonly seen in sleep. Sleep deprivation before an EEG can sometimes ensure sleep before the EEG, and may therefore be beneficial if indicated. Lindsey Rose MD Date of interpretation: 11/02/2020[facility] Electro[facility] ([facility] - Duration of test: 20-60 mins; Release to patient: [id number] 00:00:00Date and Time of Procedure: 11/02/2020, 8:47:43 to 9:10:44 REPORT TECHNICAL SUMMARY: The EEG was recorded digitally. Electrodes were applied using the International 10/20 System of electrode placement. Eye movements, respiratory excursions and rhythm strip ECG were monitored on separate channels ofthe ongoing EEG recording. The occipital dominant rhythm consists of moderate amplitude 7-8 Hz activity. More anteriorly, similar as well as faster frequencies are present, including low amplitude 18-22 Hz activities in the anterior leads. There is an excessive amount of 4-8 Hz activity diffusely. There is focal ?slowing in the left fronto-temporal region. Drowsiness does not reveal additional abnormalities. Sleep is not seen. Photic stimulation does not elicit additional abnormalities. IMPRESSION: This EEG is abnormal due to:1) mild diffuse slowing, suggestive of a mild diffuse disturbance in cerebral function.2) focal slowing in the left fronto-temporal head region, suggestive of a focal disturbance in the that region. No electrographic seizures or epileptiform abnormalities are seen. The absence of epileptiform abnormalities in one EEG does not necessarily rule out a diagnosis of epilepsyor the potential for epileptic seizures, however. The diagnostic sensitivity can be increased by a repeat study, which would be appropriate if clinically indicated. The fact that sleep is not seen may decrease the diagnostic sensitivity of the test, as some EEG abnormalities are more commonly seen in sleep. Sleep deprivation before an EEG can sometimes ensure sleep before the EEG, and may therefore be beneficial if indicated. Lindsey Rose MD Date of int erpretation: 11/02/2020[facility] 2020-11-01 21:47:18 Test Item Value Reference Range Interpretation Comments POCT GLU (test code = 1145681160) 155 mg/dL 70-110 H Lab Interpretation (test code = Abnormal 98925-0) [facility] GLUCOSE (AUTOMATED)2020-11-01 21:00:48 Test Item Value Reference Range Interpretation Comments POCT GLU (test code = 1379167425) 149 mg/dL 70-110 H Lab Interpretation (test code = Abnormal 87145-7) [facility]IN20[facility] 20:04:50 Test Item Value Reference Range Interpretation Comments Procalcitonin (test 0.24 ng/mL <0.07 H code = 8279975820) JUAN LUIS (test code = JUAN LUIS) INTERPRETATION OF PROCALCITONIN RESULTS IN ADULTS >= 18 YEARS OF AGE Initiation and discontinuation of antibiotics on patients with suspected or confirmed Lower Respiratory Tract Infection in Adults >= 18 years of age. + +-------- --------+ + -----+|Procalcitonin |Interpretation ?|Antibiotic ? ? |Considerations ? |ng/mL ? | ?|recommendation | ? + +-------- --------+ + -----+| <0.1 ? | Bacterial ? ? ?| Strongly ? ? ?| ? | ?| infection very | discouraged ? | Overruling: ? | ?| unlikely ? ? ? | ? | ? Clinically unstable ? ? ? + +-------- --------+ + ? High risk for adverse ? ? | <0.25 ?| Bacterial ? ? ?| Discouraged ? | ? outcome ? | ?| infection ? ? ?| ? | ? SEE IMPORTANT NOTE ?| ?| unlikely ? ? ? | ? | ? + +-------- --------+ + -----+| >=0.25 ? ? ? | Bacterial ? ? ?| Encouraged ? ?| ? | ?| infection ? ? ?| ? | ? | ?| likely ? | ? | Consider treatment failure ?+ +------- ---------+ -+ if levels does not decrease | >0.5 ? | Bacterial ? ? ?| Strongly ? ? ?| appropriately ? | ?| infection very | encouraged ? ?| ? | ?| likely ? | ? | ? + +-------- --------+ + -----+ Discontinuation of antibiotics in high-acuity patients with suspected or confirmed sepsis in Adults >= 18 years of age. + +-------- --------+ + -----+|Procalcitonin |Interpretation ?|Antibiotic ? ? |Considerations ? |ng/mL ? | ?|recommendation | ? + +-------- --------+ + -----+| <0.25 ?| Bacterial ? ? ?| Strongly ? ? ?| ? | ?| infection very | discouraged ? | Overruling: ? | ?| unlikely ? ? ? | ? | ? Clinically unstable ? ? ? + +-------- --------+ + ? High risk for adverse ? ? | <0.5 or drop | Bacterial ? ? ?| Discouraged ? | ? outcome ? | >80% from ? ?| infection ? ? ?| ? | ? SEE IMPORTANT NOTE ?| highest PCT ?| unlikely ? ? ? | ? | ? | level ?| ?| ? | ? + +-------- --------+ + -----+| >=0.5 ?| Bacterial ? ? ?| Encouraged ? ?| ? | ?| infection ? ? ?| ? | ? | ?| likely ? | ? | Consider treatment failure ?+ +------- ---------+ -+ if levels does not decrease | >1.0 ? | Bacterial ? ? ?| Strongly ? ? ?| appropriately ? | ?| infection very | encouraged ? ?| ? | ?| likely ? | ? | ? + +-------- --------+ + -----+ Percentage of drop of Procalcitonin calculation for Discontinuation of antibiotics in high-acuity patients with suspected or confirmed sepsis in Adults >= 18 years of age. ? Procalcitonin highest{}-Procalcitonin current{}Delta Procalcitonin = x100% ? Procalcitonin current {} IMPORTANT NOTE: Procalcitonin may be elevated without bacterial infection by physiologic stress related to trauma, ma, chronic dialysis, metastatic cancer, surgery in the past seven days, malaria, some fungal infections, and some forms of vasculitis. The interpretation algorithm may not apply to patients with immunosuppression (equivalent of >10 mg of prednisone daily), HIV with CD4 cell count < 350 cells/mm3, active malignancy on systemic chemotherapy, solid organ transplant or hematopoietic stem cell transplantation, or hospital acquired pneumonia. Additionally, some clinical trials of procalcitonin have excluded patients with shock requiring vasopressor use, acute respiratory failure requiring mechanical ventilation, or those with known lung abscess/empyema. For further information please refer to:[email or web address] Lab Interpretation Abnormal (test code = 80600-0) [facility] 20:04:50 Test Item Value Reference Range Interpretation Comments Procalcitonin (test 0.24 ng/mL <0.07 H code = 5969950568) JUAN LUIS (test code = JUAN LUIS) INTERPRETATION OF PROCALCITONIN RESULTS IN ADULTS >= 18 YEARS OF AGE Initiation and discontinuation of antibiotics on patients with suspected or confirmed Lower Respiratory Tract Infection in Adults >= 18 years of age. + +-------- --------+ + -----+|Procalcitonin |Interpretation ?|Antibiotic ? ? |Considerations ? |ng/mL ? | ?|recommendation | ? + +-------- --------+ + -----+| <0.1 ? | Bacterial ? ? ?| Strongly ? ? ?| ? | ?| infection very | discouraged ? | Overruling: ? | ?| unlikely ? ? ? | ? | ? Clinically unstable ? ? ? + +-------- --------+ + ? High risk for adverse ? ? | <0.25 ?| Bacterial ? ? ?| Discouraged ? | ? outcome ? | ?| infection ? ? ?| ? | ? SEE IMPORTANT NOTE ?| ?| unlikely ? ? ? | ? | ? + +-------- --------+ + -----+| >=0.25 ? ? ? | Bacterial ? ? ?| Encouraged ? ?| ? | ?| infection ? ? ?| ? | ? | ?| likely ? | ? | Consider treatment failure ?+ +------- ---------+ -+ if levels does not decrease | >0.5 ? | Bacterial ? ? ?| Strongly ? ? ?| appropriately ? | ?| infection very | encouraged ? ?| ? | ?| likely ? | ? | ? + +-------- --------+ + -----+ Discontinuation of antibiotics in high-acuity patients with suspected or confirmed sepsis in Adults >= 18 years of age. + +-------- --------+ + -----+|Procalcitonin |Interpretation ?|Antibiotic ? ? |Considerations ? |ng/mL ? | ?|recommendation | ? + +-------- --------+ + -----+| <0.25 ?| Bacterial ? ? ?| Strongly ? ? ?| ? | ?| infection very | discouraged ? | Overruling: ? | ?| unlikely ? ? ? | ? | ? Clinically unstable ? ? ? + +-------- --------+ + ? High risk for adverse ? ? | <0.5 or drop | Bacterial ? ? ?| Discouraged ? | ? outcome ? | >80% from ? ?| infection ? ? ?| ? | ? SEE IMPORTANT NOTE ?| highest PCT ?| unlikely ? ? ? | ? | ? | level ?| ?| ? | ? + +-------- --------+ + -----+| >=0.5 ?| Bacterial ? ? ?| Encouraged ? ?| ? | ?| infection ? ? ?| ? | ? | ?| likely ? | ? | Consider treatment failure ?+ +------- ---------+ -+ if levels does not decrease | >1.0 ? | Bacterial ? ? ?| Strongly ? ? ?| appropriately ? | ?| infection very | encouraged ? ?| ? | ?| likely ? | ? | ? + +-------- --------+ + -----+ Percentage of drop of Procalcitonin calculation for Discontinuation of antibiotics in high-acuity patients with suspected or confirmed sepsis in Adults >= 18 years of age. ? Procalcitonin highest{}-Procalcitonin current{}Delta Procalcitonin = x100% ? Procalcitonin current {} IMPORTANT NOTE: Procalcitonin may be elevated without bacterial infection by physiologic stress related to trauma, ma, chronic dialysis, metastatic cancer, surgery in the past seven days, malaria, some fungal infections, and some forms of vasculitis. The interpretation algorithm may not apply to patients with immunosuppression (equivalent of >10 mg of prednisone daily), HIV with CD4 cell count < 350 cells/mm3, active malignancy on systemic chemotherapy, solid organ transplant or hematopoietic stem cell transplantation, or hospital acquired pneumonia. Additionally, some clinical trials of procalcitonin have excluded patients with shock requiring vasopressor use, acute respiratory failure requiring mechanical ventilation, or those with known lung abscess/empyema. For further information please refer to:[email or web address] Lab Interpretation Abnormal (test code = 92194-6) [facility] 20:04:50 Test Item Value Reference Range Interpretation Comments Procalcitonin (test 0.24 ng/mL <0.07 H code = 4720533216) JUAN LUIS (test code = JUAN LUIS) INTERPRETATION OF PROCALCITONIN RESULTS IN ADULTS >= 18 YEARS OF AGE Initiation and discontinuation of antibiotics on patients with suspected or confirmed Lower Respiratory Tract Infection in Adults >= 18 years of age. + +-------- --------+ + -----+|Procalcitonin |Interpretation ?|Antibiotic ? ? |Considerations ? |ng/mL ? | ?|recommendation | ? + +-------- --------+ + -----+| <0.1 ? | Bacterial ? ? ?| Strongly ? ? ?| ? | ?| infection very | discouraged ? | Overruling: ? | ?| unlikely ? ? ? | ? | ? Clinically unstable ? ? ? + +-------- --------+ + ? High risk for adverse ? ? | <0.25 ?| Bacterial ? ? ?| Discouraged ? | ? outcome ? | ?| infection ? ? ?| ? | ? SEE IMPORTANT NOTE ?| ?| unlikely ? ? ? | ? | ? + +-------- --------+ + -----+| >=0.25 ? ? ? | Bacterial ? ? ?| Encouraged ? ?| ? | ?| infection ? ? ?| ? | ? | ?| likely ? | ? | Consider treatment failure ?+ +------- ---------+ -+ if levels does not decrease | >0.5 ? | Bacterial ? ? ?| Strongly ? ? ?| appropriately ? | ?| infection very | encouraged ? ?| ? | ?| likely ? | ? | ? + +-------- --------+ + -----+ Discontinuation of antibiotics in high-acuity patients with suspected or confirmed sepsis in Adults >= 18 years of age. + +-------- --------+ + -----+|Procalcitonin |Interpretation ?|Antibiotic ? ? |Considerations ? |ng/mL ? | ?|recommendation | ? + +-------- --------+ + -----+| <0.25 ?| Bacterial ? ? ?| Strongly ? ? ?| ? | ?| infection very | discouraged ? | Overruling: ? | ?| unlikely ? ? ? | ? | ? Clinically unstable ? ? ? + +-------- --------+ + ? High risk for adverse ? ? | <0.5 or drop | Bacterial ? ? ?| Discouraged ? | ? outcome ? | >80% from ? ?| infection ? ? ?| ? | ? SEE IMPORTANT NOTE ?| highest PCT ?| unlikely ? ? ? | ? | ? | level ?| ?| ? | ? + +-------- --------+ + -----+| >=0.5 ?| Bacterial ? ? ?| Encouraged ? ?| ? | ?| infection ? ? ?| ? | ? | ?| likely ? | ? | Consider treatment failure ?+ +------- ---------+ -+ if levels does not decrease | >1.0 ? | Bacterial ? ? ?| Strongly ? ? ?| appropriately ? | ?| infection very | encouraged ? ?| ? | ?| likely ? | ? | ? + +-------- --------+ + -----+ Percentage of drop of Procalcitonin calculation for Discontinuation of antibiotics in high-acuity patients with suspected or confirmed sepsis in Adults >= 18 years of age. ? Procalcitonin highest{}-Procalcitonin current{}Delta Procalcitonin = x100% ? Procalcitonin current {} IMPORTANT NOTE: Procalcitonin may be elevated without bacterial infection by physiologic stress related to trauma, ma, chronic dialysis, metastatic cancer, surgery in the past seven days, malaria, some fungal infections, and some forms of vasculitis. The interpretation algorithm may not apply to patients with immunosuppression (equivalent of >10 mg of prednisone daily), HIV with CD4 cell count < 350 cells/mm3, active malignancy on systemic chemotherapy, solid organ transplant or hematopoietic stem cell transplantation, or hospital acquired pneumonia. Additionally, some clinical trials of procalcitonin have excluded patients with shock requiring vasopressor use, acute respiratory failure requiring mechanical ventilation, or those with known lung abscess/empyema. For further information please refer to:[email or web address] Lab Interpretation Abnormal (test code = 51216-1) [facility] (NA, K, CL, CO2, GLUCOSE, BUN, CREATININE, CA)2020-11-01 18:21:16 Test Item Value Reference Range Interpretation Comments NA (test code = 149 mmol/L 135-145 H [id number]) K (test code = 3.9 mmol/L 3.5-5.0 9281632010) CL (test code = 121 mmol/L 98-108 H 2478670240) CO2 TOTAL (test code = 22 mmol/L 23-31 L 6280921765) AGAP (test code = 2-16 7413518289) BUN (test code = 47 mg/dL 7-23 H 4228659478) GLUCOSE (test code = 218 mg/dL 70-110 H 0425990085) CREATININE (test code = 1.42 mg/dL 0.60-1.25 H 0567411461) CALCIUM (test code = 7.6 mg/dL 8.6-10.6 L 9723588283) eGFR (test code = mL/min/1.73m2 6679435715) JUAN LUIS (test code = JUAN LUIS) Association of Glomerular Filtration Rate (GFR) and Staging of Kidney Disease* + --+ --+ ------+| GFR (mL/min/1.73 m2) ?| With Kidney Damage ?| ?Without Kidney Damage+ --------+ --------+ +| ?>90 ?| ?Stage one ?| ? Normal ?+ ---+ ---+ -------+| ?60-89 ?| ?Stage two ?| ? Decreased GFR ? + --+ --+ ------+| ?30-59 ?| ?Stage three ?| ? Stage three ? + --+ --+ ------+| ?15-29 ?| ?Stage four ? | ? Stage four ?+ ---+ ---+ -------+| ?<15 (or dialysis) ? ?| ?Stage five ? | ? Stage five ?+ ---+ ---+ -------+ *Each stage assumes the associated GFR level has been in effect for at least three months. ?Stages 1 to 5, with or without kidney disease, indicate chronic kidney disease. Notes: Determination of stages one and two (with eGFR >59mL/min/1.73 m2) requires estimation of kidney damage for at least three months as defined by structural or functional abnormalities of the kidney, manifested by either:Pathological abnormalities or Markers of kidney damage (including abnormalities in the composition of the blood or urine or abnormalities in imaging tests). Lab Interpretation Abnormal (test code = 75858-9) [facility] GLUCOSE (AUTOMATED)2020-11-01 17:04:41 Test Item Value Reference Range Interpretation Comments POCT GLU (test code = 9101853293) 246 mg/dL 70-110 H Lab Interpretation (test code = Abnormal 58938-1) [facility] GLUCOSE (AUTOMATED)2020-11-01 12:53:56 Test Item Value Reference Range Interpretation Comments POCT GLU (test code = 9152798191) 214 mg/dL 70-110 H Lab Interpretation (test code = Abnormal 90843-1) [facility] WITH [id number] 11:03:22 Test Item Value Reference Range Interpretation Comments WBC (test code = See_Comment H [Automated 6690-2) message] The sy stem which generated this result transmitted reference range : 4.20 - 10.70 10*3/?L. The reference range was not used to interpret this result as normal/abnormal . RBC (test code = See_Comment L [Automated 789-8) message] The sy stem which generated this result transmitted reference range : 4.26 - 5.52 10*6/?L. The reference range was not used to interpret this result as normal/abnormal . HGB (test code = 8.6 g/dL 12.2-16.4 L 718-7) HCT (test code = 26.0 % 38.4-49.3 L 4544-3) MCV (test code = 76.7 fL 81.7-95.6 L 787-2) MCH (test code = 25.4 pg 26.1-32.7 L 785-6) MCHC (test code = 33.1 g/dL 31.2-35.0 786-4) RDW-SD (test code = 60.5 fL 38.5-51.6 H 29566-3) RDW-CV (test code = 22.5 % 12.1-15.4 H 788-0) PLT (test code = See_Comment L [Automated 777-3) message] The sy stem which generated this result transmitted reference range : 150 - 328 10*3/ ?L. The reference r christine was not used to interpret this result as normal/abnormal . MPV (test code = Not Measure d 76385-9) IPF % (test code = 6.1 % 1.2-10.7 Platelet count 1871816139) measured by fluorescence method. NRBC/100 WBC (test See_Comment [Automat ed code = 7830703878) message] The system which generated this result transmitted reference range : 0.0 - 10.0 /100 WBCs. The refer ence range was not u sed to interpret th is result as normal/abnormal . NRBC x10^3 (test code See_Comment [Auto mated = 7308315879) message] The s ystem which generated this result transmitted reference range : 10*3/?L. The reference range was not used to interpret this result as normal/abnormal . GRAN MAT (NEUT) % 83.1 % (test code = 770-8) IMM GRAN % (test code 1.00 % = 7841162704) LYMPH % (test code = 7.0 % 736-9) MONO % (test code = 6.7 % 5905-5) EOS % (test code = 2.0 % 713-8) BASO % (test code = 0.2 % 706-2) GRAN MAT x10^3(ANC) 12.96 10*3/uL 1.99-6.95 H (test code = 0620541281) IMM GRAN x10^3 (test 0.15 10*3/uL 0.00-0.06 H code = 6466659991) LYMPH x10^3 (test 1.09 10*3/uL 1.09-3.23 code = 731-0) MONO x10^3 (test code 1.05 10*3/uL 0.36-1.02 H = 742-7) EOS x10^3 (test code 0.31 10*3/uL 0.06-0.53 = 711-2) BASO x10^3 (test code 0.03 10*3/uL 0.01-0.09 = 704-7) SCHISTOCYTES (test 1+ A code = 800-3) TOXIC CHANGES (test Present A code = 803-7) Lab Interpretation Abnormal (test code = 46207-2) [facility] METABOLIC PANEL (NA, K, CL, CO2, GLUCOSE, BUN, CREATININE, CA)2020-11-01 10:58:55 Test Item Value Reference Range Interpretation Comments NA (test code = 151 mmol/L 135-145 H 0758733755) K (test code = 4.0 mmol/L 3.5-5.0 3745944846) CL (test code = 124 mmol/L 98-108 H 4899931555) CO2 TOTAL (test code = 22 mmol/L 23-31 L 9857006885) AGAP (test code = 2-16 0077271465) BUN (test code = 48 mg/dL 7-23 H 0518382822) GLUCOSE (test code = 201 mg/dL 70-110 H 7963417193) CREATININE (test code = 1.46 mg/dL 0.60-1.25 H 0324168661) CALCIUM (test code = 7.7 mg/dL 8.6-10.6 L 9351836366) eGFR (test code = mL/min/1.73m2 8979513372) JUAN LUIS (test code = JUAN LUIS) Association of Glomerular Filtration Rate (GFR) and Staging of Kidney Disease* + --+ --+ ------+| GFR (mL/min/1.73 m2) ?| With Kidney Damage ?| ?Without Kidney Damage+ --------+ --------+ +| ?>90 ?| ?Stage one ?| ? Normal ?+ ---+ ---+ -------+| ?60-89 ?| ?Stage two ?| ? Decreased GFR ? + --+ --+ ------+| ?30-59 ?| ?Stage three ?| ? Stage three ? + --+ --+ ------+| ?15-29 ?| ?Stage four ? | ? Stage four ?+ ---+ ---+ -------+| ?<15 (or dialysis) ? ?| ?Stage five ? | ? Stage five ?+ ---+ ---+ -------+ *Each stage assumes the associated GFR level has been in effect for at least three months. ?Stages 1 to 5, with or without kidney disease, indicate chronic kidney disease. Notes: Determination of stages one and two (with eGFR >59mL/min/1.73 m2) requires estimation of kidney damage for at least three months as defined by structural or functional abnormalities of the kidney, manifested by either:Pathological abnormalities or Markers of kidney damage (including abnormalities in the composition of the blood or urine or abnormalities in imaging tests). Lab Interpretation Abnormal (test code = 57140-1) [facility] GLUCOSE (AUTOMATED)2020-11-01 10:42:03 Test Item Value Reference Range Interpretation Comments POCT GLU (test code = 4342439514) 208 mg/dL 70-110 H Lab Interpretation (test code = Abnormal 92556-3) [facility] GLUCOSE (AUTOMATED)2020-11-01 08:18:28 Test Item Value Reference Range Interpretation Comments POCT GLU (test code = 6972249251) 218 mg/dL 70-110 H Lab Interpretation (test code = Abnormal 83631-3) [facility] (NA, K, CL, CO2, GLUCOSE, BUN, CREATININE, CA)2020-11-01 06:04:39 Test Item Value Reference Range Interpretation Comments NA (test code = 152 mmol/L 135-145 H 8157495649) K (test code = 4.0 mmol/L 3.5-5.0 8671987944) CL (test code = 123 mmol/L 98-108 H 7390743661) CO2 TOTAL (test code = 23 mmol/L 23-31 8331969249) AGAP (test code = 2-16 1557258005) BUN (test code = 49 mg/dL 7-23 H 2107348067) GLUCOSE (test code = 144 mg/dL 70-110 H 8536016963) CREATININE (test code = 1.47 mg/dL 0.60-1.25 H 0998704081) CALCIUM (test code = 7.9 mg/dL 8.6-10.6 L 4309063088) eGFR (test code = mL/min/1.73m2 9885231453) JUAN LUIS (test code = JUAN LUIS) Association of Glomerular Filtration Rate (GFR) and Staging of Kidney Disease* + --+ --+ ------+| GFR (mL/min/1.73 m2) ?| With Kidney Damage ?| ?Without Kidney Damage+ --------+ --------+ +| ?>90 ?| ?Stage one ?| ? Normal ?+ ---+ ---+ -------+| ?60-89 ?| ?Stage two ?| ? Decreased GFR ? + --+ --+ ------+| ?30-59 ?| ?Stage three ?| ? Stage three ? + --+ --+ ------+| ?15-29 ?| ?Stage four ? | ? Stage four ?+ ---+ ---+ -------+| ?<15 (or dialysis) ? ?| ?Stage five ? | ? Stage five ?+ ---+ ---+ -------+ *Each stage assumes the associated GFR level has been in effect for at least three months. ?Stages 1 to 5, with or without kidney disease, indicate chronic kidney disease. Notes: Determination of stages one and two (with eGFR >59mL/min/1.73 m2) requires estimation of kidney damage for at least three months as defined by structural or functional abnormalities of the kidney, manifested by either:Pathological abnormalities or Markers of kidney damage (including abnormalities in the composition of the blood or urine or abnormalities in imaging tests). Lab Interpretation Abnormal (test code = 01760-9) [facility] GLUCOSE (AUTOMATED)2020-11-01 05:17:31 Test Item Value Reference Range Interpretation Comments POCT GLU (test code = 4988252903) 137 mg/dL 70-110 H Lab Interpretation (test code = Abnormal 77005-7) [facility] 02:27:59 Test Item Value Reference Range Interpretation Comments POCT GLU (test code = 9590975755) 129 mg/dL 70-110 H Lab Interpretation (test code = Abnormal 39652-7) [facility] STROKE BRAIN WO [id number] 01:52:27 Within confines of motion degradation, no acute intracranial abnormality. EXAMINATION: MR STROKE BRAIN WO CONTRAST HISTORY: Neuro deficit, acute, stroke suspected COMPARISON: ?10/28/20 CT. TECHNIQUE: Stroke protocol Multiplanar and multisequence MRI imaging of thebrain was obtained without contrast. Motion reduction sequences performed. 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 ?No definite acute infarct. The calvarium is normal. ?The orbits are grossly unremarkable. Scatteredparanasal sinus mucosal thickening. Bilateral mastoid air cellopacification. [facility], Radiant Results InftUser - 10/31/2020 8:53 PM CDTEXAMINATION: MR STROKE BRAIN WO CONTRASTHISTORY: Neuro deficit, acute,stroke suspected COMPARISON: 10/28/20 CT. TECHNIQUE: Stroke protocol Multiplanar and multisequence MRI imaging of thebrain was obtained without contrast. Motion reduction sequences performed.FINDINGS:Images degraded by motion artifacts.Chronic right basal ganglia/del real radiata and frontal centrum semi ovalelacunar infarcts.No definite intracranial hemorrhage.The ventricles and sulci are prominent butwithin normal limits for age andnondisplaced. No definite acute infarct. The calvarium is normal. The orbits are grossly unremarkable. Scatteredparanasal sinus mucosal thickening. Bilateral mastoid air cellopacification.IMPRESSIONWithin confines of motion degradation, no acute intracranial abnormality.[facility] STROKE BRAIN WO [id number] 01:52:27 Within confines of motion degradation, no acute intracranial abnormality. EXAMINATION: MR STROKE BRAIN WO CONTRAST HISTORY: Neuro deficit, acute, stroke suspected COMPARISON: ?10/28/20 CT. TECHNIQUE: Stroke protocol Multiplanar and multisequence MRI imaging of thebrain was obtained without contrast. Motion reduction sequences performed. 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 ?No definite acute infarct. The calvarium is normal. ?The orbits are grossly unremarkable. Scatteredparanasal sinus mucosal thickening. Bilateral mastoid air cellopacification. [facility], Radiant Results In[employer]User - 10/31/2020 8:53 PM CDTEXAMINATION: MR STROKE BRAIN WO CONTRASTHISTORY: Neuro deficit, acute,stroke suspected COMPARISON: 10/28/20 CT. TECHNIQUE: Stroke protocol Multiplanar and multisequence MRI imaging of thebrain was obtained without contrast. 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 No definite acute infarct. The calvarium is normal. The orbits are grossly unremarkable. Scatteredparanasal sinus mucosal thickening. Bilateral mastoid air cellopacification.IMPRESSIONWithin confines of motion degradation, no acute intracranial abnormality.[facility] STROKE BRAIN WO [id number] 01:52:27 Within confines of motion degradation, no acute intracranial abnormality. EXAMINATION: MR STROKE BRAIN WO CONTRAST HISTORY: Neuro deficit, acute, stroke suspected COMPARISON: ?10/28/20 CT. TECHNIQUE: Stroke protocol Multiplanar and multisequence MRI imaging of thebrain was obtained without contrast. Motion reduction sequences performed. 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 ?No definite acute infarct. The calvarium is normal. ?The orbits are grossly unremarkable. Scatteredparanasal sinus mucosal thickening. Bilateral mastoid air cellopacification. [facility], Radiant Results Inft User - 10/31/2020 8:53 PM CDTEXAMINATION: MR STROKE BRAIN WO CONTRASTHISTORY: Neuro deficit, acute,stroke suspected COMPARISON: 10/28/20 CT. TECHNIQUE: Stroke protocol Multiplanar and multisequence MRI imaging of thebrain was obtained without contrast. 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 No definite acute infarct. The calvarium is normal. The orbits are grossly unremarkable. Scatteredparanasal sinus mucosal thickening. Bilateral mastoid air cellopacification.IMPRESSIONWithin confines of motion degradation, no acute intracranial abnormality.[facility] GLUCOSE (AUTOMATED)2020-10-31 23:28:12 Test Item Value Reference Range Interpretation Comments POCT GLU (test code = 3635184734) 194 mg/dL 70-110 H Lab Interpretation (test code = Abnormal 65443-9) [facility] GLUCOSE (AUTOMATED)2020-10-31 16:44:35 Test Item Value Reference Range Interpretation Comments POCT GLU (test code = 9953185000) 230 mg/dL 70-110 H Lab Interpretation (test code = Abnormal 99749-8) [facility] [id number] 13:11:08EXAM: XR CHEST 1 VW HISTORY: SOB COMPARISON: None. FINDINGS: The heart remains slightly enlarged tothe left. Hilar vascular congestionand interstitial and alveolar edema have increased considerably since themost recent previous image was obtained. The upper lungs are slightlycongested but otherwise clear. ? [facility], Radiant Results Inft User - 10/31/2020 8:12 AM CDTEXAM: XR CHEST 1 VWHISTORY: SOB COMPARISON: None.FINDINGS:The heart remains slightly enlarged to the left. Hilar vascular congestionand interstitial and alveolar edema have increased considerably since themost recent previous image was obtained. The upper lungs are slightlycongested but otherwise clear.[facility] [id number] 13:11:08EXAM: XR CHEST 1 VW HISTORY: SOB COMPARISON: None. FINDINGS: The heart remains slightly enlarged tothe left. Hilar vascular congestionand interstitial and alveolar edema have increased considerably since themost recent previous image was obtained. The upper lungs are slightlycongested but otherwise clear. ? [facility], Radiant Results Inft User - 10/31/2020 8:12 AM CDTEXAM: XR CHEST 1 VWHISTORY: SOB COMPARISON: None.FINDINGS:The heart remains slightly enlarged to the left. Hilar vascular congestionand interstitial and alveolar edema have increased considerably since themost recent previous image was obtained. The upper lungs are slightlycongested but otherwise clear.[facility]2020-10-31 12:52:48 Test Item Value Reference Range Interpretation Comments POCT GLU (test code = 4242384341) 285 mg/dL 70-110 H Lab Interpretation (test code = Abnormal 45449-6) [facility] - 30 minutes after transfusion of each [id number] 11:57:20 Test Item Value Reference Range Interpretation Comments WBC (test code = See_Comment H [Automated message] 6690-2) The system [employer] generated this result transmitted ref erence range: 4.20 - 1 0.70 10*3/?L. The reference range was not used to int erpret this result as normal/abnormal . RBC (test code = 789-8) See_Comment L [Au tomated message] The system [employer] generated this result transmitted ref erence range: 4.26 - 5 .52 10*6/?L. The reference range was not used to int erpret this result as normal/abnormal . HGB (test code = 718-7) 8.3 g/dL 12.2-16.4 L HCT (test code = 25.4 % 38.4-49.3 L 4544-3) MCH (test code = 785-6) 25.0 pg 26.1-32.7 L MCV (test code = 787-2) 76.5 fL 81.7-95.6 L MCHC (test code = 32.7 g/dL 31.2-35.0 786-4) PLT (test code = 777-3) See_Comment L [Au tomated message] The system [employer] generated this result transmitted ref erence range: 150 - 32 8 10*3/?L. The reference range was not used to int erpret this result as normal/abnormal . MPV (test code = Not Measure d 17446-0) RDW-CV (test code = 22.4 % 12.1-15.4 H 788-0) RDW-SD (test code = 61.0 fL 38.5-51.6 H 80214-4) NRBC x10^3 (test code = See_Comment [Au tomated message] 7381895109) The system [employer] generated this result transmitted ref erence range: 10*3/?L. The reference range was not used to int erpret this result as normal/abnormal . NRBC/100 WBC (test code See_Comment [Au tomated message] = 9367396013) The system [facility] generated this result transmitted ref erence range: 0.0 - 10 .0 /100 WBCs. The reference range was not used to int erpret this result as normal/abnormal . IPF % (test code = 6.6 % 1.2-10.7 Platelet count 5478273433) measured by fluorescence me thod. Lab Interpretation Abnormal (test code = 79074-4) [facility] Packed RBC (in units), 1 Units 2020-10-31 06:44:13 Test Item Value Reference Range Interpretation Comments Cross Match Result Compatible (test code = 4409) ISBT Blood Type Code (test code = 744717) Unit Blood Type (test A Pos code = 4410) Unit Number (test [id number] code = 4411) Blood Expiration Date & Time (test code = 041627) Status Information Issued (test code = 4412) Product Red Blood Cells Identification (test code = 4413) Product Code (test [id number] Performed at [facility] code = 4414) Laboratory Services - [facility] Blood [address] [place] [address]Jxsq Free: [phone] A No. [id number] [facility] Packed RBC (in units), 1 Units 2020-10-31 06:44:13 Test Item Value Reference Range Interpretation Comments Cross Match Result Compatible (test code = 4409) ISBT Blood Type Code (test code = 476271) Unit Blood Type (test A Pos code = 4410) Unit Number (test [id number] code = 4411) Blood Expiration Date & Time (test code = 846434) Status Information Issued (test code = 4412) Product Red Blood Cells Identification (test code = 4413) Product Code (test [id number] Performed at [facility] code = 4414) Laboratory [facility] Blood [address] [address]Oepr Free: [phone] A No. [id number] [facility] Packed RBC (in units), 1 Units 2020-10-31 06:44:13 Test Item Value Reference Range Interpretation Comments Cross Match Result Compatible (test code = 4409) ISBT Blood Type Code (test code = 138266) Unit Blood Type (test A Pos code = 4410) Unit Number (test [id number] code = 4411) Blood Expiration Date & Time (test code = 060021) Status Information Issued (test code = 4412) Product Red Blood Cells Identification (test code = 4413) Product Code (test Q0401O00 Performed at [facility] code = 4414) Laboratory [facility] Blood [address] [address]Xzmk Free: [phone] A No. [id number] [facility] and Screen - ONCE [id number] 06:28:19 Test Item Value Reference Range Interpretation Comments ABO & RH (test code A POSITIVE Performe d at [facility] = 20) Laboratory [facility] Blood [address] [address]Yeku Free: [phone] A No. [id number] IAT (test code = Negative Performed a t [facility] 1185) Laboratory [facility] Blood [facility] [place] [address]Jljm Free: [phone] A No. [id number] [facility] and Screen - ONCE [id number] 06:28:19 Test Item Value Reference Range Interpretation Comments ABO & RH (test code A POSITIVE Performe d at [facility] = 20) Laboratory [facility] Blood [facility] [address] [place] [address]Ytez Free: [phone] A No. [id number] IAT (test code = Negative Performed a t [facility] 1185) Laboratory [facility] Blood [facility] [address] [place] [address]Ttyj Free: [phone] A No. [id number] [facility] - ONCE [id number] 06:28:19 Test Item Value Reference Range Interpretation Comments ABO & RH (test code A POSITIVE Performe d at [facility] = 20) Laboratory [facility] Blood [address] [address]Vmfu Free: [phone] A No. [id number] IAT (test code = Negative Performed a t [facility] 1185) Laboratory [facility] Blood [address] [address]Zjmu Free: [phone] A No. [id number] [facility]2020-10-31 05:36:57 Test Item Value Reference Range Interpretation Comments POCT GLU (test code = 4214708001) 242 mg/dL 70-110 H Lab Interpretation (test code = Abnormal 43825-6) [facility] 05:07:27 Test Item Value Reference Range Interpretation Comments MAGNESIUM (test code = 3628823626) 2.5 mg/dL 1.7-2.4 H Lab Interpretation (test code = Abnormal 65015-0) [facility] [id number] 04:57:09 Test Item Value Reference Range Interpretation Comments WBC (test code = See_Comment H [Automated 0490-2) message] The sy stem which generated this result transmitted reference range : 4.20 - 10.70 10*3/?L. The reference range was not used to interpret this result as normal/abnormal . RBC (test code = See_Comment L [Automated 209-8) message] The sy stem which generated this result transmitted reference range : 4.26 - 5.52 10*6/?L. The reference range was not used to interpret this result as normal/abnormal . HGB (test code = 6.9 g/dL 12.2-16.4 L 718-7) HCT (test code = 21.4 % 38.4-49.3 L 4544-3) MCV (test code = 76.2 fL 81.7-95.6 L 787-2) MCH (test code = 24.6 pg 26.1-32.7 L 785-6) MCHC (test code = 32.2 g/dL 31.2-35.0 786-4) RDW-SD (test code = 60.2 fL 38.5-51.6 H 55281-5) RDW-CV (test code = 22.7 % 12.1-15.4 H 788-0) PLT (test code = See_Comment L [Automated 777-3) message] The sy stem which generated this result transmitted reference range : 150 - 328 10*3/ ?L. The reference r christine was not used to interpret this result as normal/abnormal . MPV (test code = Not Measure d 91730-7) IPF % (test code = 3.4 % 1.2-10.7 Platelet count 9739980439) measured by fluorescence method. NRBC/100 WBC (test See_Comment [Automat ed code = 9317093437) message] The system which generated this result transmitted reference range : 0.0 - 10.0 /100 WBCs. The refer ence range was not u sed to interpret th is result as normal/abnormal . NRBC x10^3 (test code <0.01 See_Comment [Auto mated = 5856968351) message] The s ystem which generated this result transmitted reference range : 10*3/?L. The reference range was not used to interpret this result as normal/abnormal . GRAN MAT (NEUT) % 82.8 % (test code = 770-8) IMM GRAN % (test code 1.10 % = 8970666234) LYMPH % (test code = 7.8 % 736-9) MONO % (test code = 7.0 % 5905-5) EOS % (test code = 1.2 % 713-8) BASO % (test code = 0.1 % 706-2) GRAN MAT x10^3(ANC) 11.75 10*3/uL 1.99-6.95 H (test code = 9141687807) IMM GRAN x10^3 (test 0.16 10*3/uL 0.00-0.06 H code = 4121732929) LYMPH x10^3 (test 1.10 10*3/uL 1.09-3.23 code = 731-0) MONO x10^3 (test code 0.99 10*3/uL 0.36-1.02 = 742-7) EOS x10^3 (test code 0.17 10*3/uL 0.06-0.53 = 711-2) BASO x10^3 (test code <0.03 0.01-0.09 = 704-7) SCHISTOCYTES (test 1+ A code = 800-3) Lab Interpretation Abnormal (test code = 89210-8) [facility] (for use with Heparin Drip)2020-10-31 04:49:42 Test Item Value Reference Range Interpretation Comments APTT Patient (test code See_Comment H [Au tomated message] = 3173-2) The system [employer] generated this result transmitted ref erence range: 26 - 36 Seconds. The reference range was not used to int erpret this result as normal/abnormal . Lab Interpretation (test Abnormal code = 55360-8) [facility] (for use with Heparin Drip)2020-10-31 04:49:42 Test Item Value Reference Range Interpretation Comments APTT Patient (test code See_Comment H [Au tomated message] = 3173-2) The system [employer] generated this result transmitted ref erence range: 26 - 36 Seconds. The reference range was not used to int erpret this result as normal/abnormal . Lab Interpretation (test Abnormal code = 34826-5) [facility] (for use with Heparin Drip)2020-10-31 04:49:42 Test Item Value Reference Range Interpretation Comments APTT Patient (test code See_Comment H [Au tomated message] = 3173-2) The system [employer] generated this result transmitted ref erence range: 26 - 36 Seconds. The reference range was not used to int erpret this result as normal/abnormal . Lab Interpretation (test Abnormal code = 36236-4) [facility] METABOLIC PANEL (NA, K, CL, CO2, GLUCOSE, BUN, CREATININE, CA)2020-10-31 04:34:49 Test Item Value Reference Range Interpretation Comments NA (test code = 151 mmol/L 135-145 H 6588704334) K (test code = 3.9 mmol/L 3.5-5.0 3827830052) CL (test code = 124 mmol/L 98-108 H 9898221460) CO2 TOTAL (test code = 22 mmol/L 23-31 L 1919752942) AGAP (test code = 2-16 2117387856) BUN (test code = 52 mg/dL 7-23 H 0617288222) GLUCOSE (test code = 212 mg/dL 70-110 H 5169969723) CREATININE (test code = 1.44 mg/dL 0.60-1.25 H 5931784985) CALCIUM (test code = 8.0 mg/dL 8.6-10.6 L 7282994057) eGFR (test code = mL/min/1.73m2 1391524539) JUAN LUIS (test code = JUAN LUIS) Association of Glomerular Filtration Rate (GFR) and Staging of Kidney Disease* + --+ --+ ------+| GFR (mL/min/1.73 m2) ?| With Kidney Damage ?| ?Without Kidney Damage+ --------+ --------+ +| ?>90 ?| ?Stage one ?| ? Normal ?+ ---+ ---+ -------+| ?60-89 ?| ?Stage two ?| ? Decreased GFR ? + --+ --+ ------+| ?30-59 ?| ?Stage three ?| ? Stage three ? + --+ --+ ------+| ?15-29 ?| ?Stage four ? | ? Stage four ?+ ---+ ---+ -------+| ?<15 (or dialysis) ? ?| ?Stage five ? | ? Stage five ?+ ---+ ---+ -------+ *Each stage assumes the associated GFR level has been in effect for at least three months. ?Stages 1 to 5, with or without kidney disease, indicate chronic kidney disease. Notes: Determination of stages one and two (with eGFR >59mL/min/1.73 m2) requires estimation of kidney damage for at least three months as defined by structural or functional abnormalities of the kidney, manifested by either:Pathological abnormalities or Markers of kidney damage (including abnormalities in the composition of the blood or urine or abnormalities in imaging tests). Lab Interpretation Abnormal (test code = 01332-1) [facility] GLUCOSE (AUTOMATED)2020-10-31 01:46:55 Test Item Value Reference Range Interpretation Comments POCT GLU (test code = 0683131668) 259 mg/dL 70-110 H Lab Interpretation (test code = Abnormal 55845-6) [facility] GLUCOSE (AUTOMATED)2020-10-30 22:14:20 Test Item Value Reference Range Interpretation Comments POCT GLU (test code = 3215640796) 317 mg/dL 70-110 H Lab Interpretation (test code = Abnormal 44402-5) [facility] Test Item Value Reference Range Interpretation Comments MAGNESIUM (test code = 8246318022) 2.4 mg/dL 1.7-2.4 Lab Interpretation (test code = Normal 72083-1) [facility] GLUCOSE (AUTOMATED)2020-10-30 19:46:18 Test Item Value Reference Range Interpretation Comments POCT GLU (test code = 5693382994) 374 mg/dL 70-110 H Lab Interpretation (test code = Abnormal 20911-9) [facility]2020-10-30 17:27:09 Test Item Value Reference Range Interpretation Comments APTT Patient (test code See_Comment H [Au tomated message] = 3173-2) The system [employer] generated this result transmitted ref erence range: 26 - 36 Seconds. The reference range was not used to int erpret this result as normal/abnormal . Lab Interpretation (test Abnormal code = 55387-6) [facility] GLUCOSE (AUTOMATED)2020-10-30 17:07:11 Test Item Value Reference Range Interpretation Comments POCT GLU (test code = 6862417405) 368 mg/dL 70-110 H Lab Interpretation (test code = Abnormal 00661-8) [facility] (NA, K, CL, CO2, GLUCOSE, BUN, CREATININE, CA)2020-10-30 14:34:56 Test Item Value Reference Range Interpretation Comments NA (test code = 148 mmol/L 135-145 H 9401778057) K (test code = 4.1 mmol/L 3.5-5.0 1829910279) CL (test code = 122 mmol/L 98-108 H 5552838424) CO2 TOTAL (test code = 20 mmol/L 23-31 L 6088543574) AGAP (test code = 2-16 9033300922) BUN (test code = 51 mg/dL 7-23 H 9491336087) GLUCOSE (test code = 343 mg/dL 70-110 H 6867823615) CREATININE (test code = 1.43 mg/dL 0.60-1.25 H 2396350818) CALCIUM (test code = 8.1 mg/dL 8.6-10.6 L 8927161903) eGFR (test code = mL/min/1.73m2 4293995161) JUAN LUIS (test code = JUAN LUIS) Association of Glomerular Filtration Rate (GFR) and Staging of Kidney Disease* + --+ --+ ------+| GFR (mL/min/1.73 m2) ?| With Kidney Damage ?| ?Without Kidney Damage+ --------+ --------+ +| ?>90 ?| ?Stage one ?| ? Normal ?+ ---+ ---+ -------+| ?60-89 ?| ?Stage two ?| ? Decreased GFR ? + --+ --+ ------+| ?30-59 ?| ?Stage three ?| ? Stage three ? + --+ --+ ------+| ?15-29 ?| ?Stage four ? | ? Stage four ?+ ---+ ---+ -------+| ?<15 (or dialysis) ? ?| ?Stage five ? | ? Stage five ?+ ---+ ---+ -------+ *Each stage assumes the associated GFR level has been in effect for at least three months. ?Stages 1 to 5, with or without kidney disease, indicate chronic kidney disease. Notes: Determination of stages one and two (with eGFR >59mL/min/1.73 m2) requires estimation of kidney damage for at least three months as defined by structural or functional abnormalities of the kidney, manifested by either:Pathological abnormalities or Markers of kidney damage (including abnormalities in the composition of the blood or urine or abnormalities in imaging tests). Lab Interpretation Abnormal (test code = 57132-1) [facility] WITHOUT [id number] 14:10:28 Test Item Value Reference Range Interpretation Comments WBC (test code = See_Comment H [Automated message] 6690-2) The system [employer] generated this result transmitted ref erence range: 4.20 - 1 0.70 10*3/?L. The reference range was not used to int erpret this result as normal/abnormal . RBC (test code = 789-8) See_Comment L [Au tomated message] The system [employer] generated this result transmitted ref erence range: 4.26 - 5 .52 10*6/?L. The reference range was not used to int erpret this result as normal/abnormal . HGB (test code = 718-7) 7.2 g/dL 12.2-16.4 L HCT (test code = 22.6 % 38.4-49.3 L 4544-3) MCH (test code = 785-6) 24.2 pg 26.1-32.7 L MCV (test code = 787-2) 75.8 fL 81.7-95.6 L MCHC (test code = 31.9 g/dL 31.2-35.0 786-4) PLT (test code = 777-3) See_Comment L [Au tomated message] The system [employer] generated this result transmitted ref erence range: 150 - 32 8 10*3/?L. The reference range was not used to int erpret this result as normal/abnormal . MPV (test code = Not Measure d 57533-3) RDW-CV (test code = 22.8 % 12.1-15.4 H 788-0) RDW-SD (test code = 60.3 fL 38.5-51.6 H 26672-6) NRBC x10^3 (test code = <0.01 See_Comment [Au tomated message] 7175295220) The system [employer] generated this result transmitted ref erence range: 10*3/?L. The reference range was not used to int erpret this result as normal/abnormal . NRBC/100 WBC (test code See_Comment [Au tomated message] = 2980305449) The system [employer] generated this result transmitted ref erence range: 0.0 - 10 .0 /100 WBCs. The reference range was not used to int erpret this result as normal/abnormal . IPF % (test code = 3.9 % 1.2-10.7 Platelet count 1911478894) measured by fluorescence me thod. Lab Interpretation Abnormal (test code = 00152-9) [facility] GLUCOSE (AUTOMATED)2020-10-30 12:43:30 Test Item Value Reference Range Interpretation Comments POCT GLU (test code = 4030954818) 350 mg/dL 70-110 H Lab Interpretation (test code = Abnormal 75866-1) [facility] GLUCOSE (AUTOMATED)2020-10-30 09:35:03 Test Item Value Reference Range Interpretation Comments POCT GLU (test code = 9806226948) 302 mg/dL 70-110 H Lab Interpretation (test code = Abnormal 37647-6) [facility] GLUCOSE (AUTOMATED)2020-10-30 06:24:42 Test Item Value Reference Range Interpretation Comments POCT GLU (test code = 5828945837) 280 mg/dL 70-110 H Lab Interpretation (test code = Abnormal 68786-5) [facility] WITH [id number] 06:22:16 Test Item Value Reference Range Interpretation Comments WBC (test code = See_Comment H [Automated 6690-2) message] The sy stem which generated this result transmitted reference range : 4.20 - 10.70 10*3/?L. The reference range was not used to interpret this result as normal/abnormal . RBC (test code = See_Comment L [Automated 789-8) message] The sy stem which generated this result transmitted reference range : 4.26 - 5.52 10*6/?L. The reference range was not used to interpret this result as normal/abnormal . HGB (test code = 7.6 g/dL 12.2-16.4 L 718-7) HCT (test code = 23.8 % 38.4-49.3 L 4544-3) MCV (test code = 76.5 fL 81.7-95.6 L 787-2) MCH (test code = 24.4 pg 26.1-32.7 L 785-6) MCHC (test code = 31.9 g/dL 31.2-35.0 786-4) RDW-SD (test code = 60.6 fL 38.5-51.6 H 27210-3) RDW-CV (test code = 22.7 % 12.1-15.4 H 788-0) PLT (test code = See_Comment L [Automated 777-3) message] The sy stem which generated this result transmitted reference range : 150 - 328 10*3/ ?L. The reference r christine was not used to interpret this result as normal/abnormal . MPV (test code = 12.3 fL 9.8-13.0 70688-8) IPF % (test code = 2.3 % 1.2-10.7 Platelet count 2431466535) measured by fluorescence method. NRBC/100 WBC (test See_Comment [Automat ed code = 6537235690) message] The system which generated this result transmitted reference range : 0.0 - 10.0 /100 WBCs. The refer ence range was not u sed to interpret th is result as normal/abnormal . NRBC x10^3 (test code <0.01 See_Comment [Auto mated = 1232199124) message] The s ystem which generated this result transmitted reference range : 10*3/?L. The reference range was not used to interpret this result as normal/abnormal . GRAN MAT (NEUT) % 83.1 % (test code = 770-8) IMM GRAN % (test code 1.70 % = 8713927549) LYMPH % (test code = 7.7 % 736-9) MONO % (test code = 6.6 % 5905-5) EOS % (test code = 0.6 % 713-8) BASO % (test code = 0.3 % 706-2) GRAN MAT x10^3(ANC) 12.88 10*3/uL 1.99-6.95 H (test code = 5937609030) IMM GRAN x10^3 (test 0.26 10*3/uL 0.00-0.06 H code = 0322407536) LYMPH x10^3 (test 1.19 10*3/uL 1.09-3.23 code = 731-0) MONO x10^3 (test code 1.02 10*3/uL 0.36-1.02 = 742-7) EOS x10^3 (test code 0.10 10*3/uL 0.06-0.53 = 711-2) BASO x10^3 (test code 0.05 10*3/uL 0.01-0.09 = 704-7) BASO STIPPLING (test Present A code = 703-9) SCHISTOCYTES (test 1+ A code = 800-3) TOXIC CHANGES (test Present A code = 803-7) Lab Interpretation Abnormal (test code = 49547-3) [facility]2020-10-30 05:58:19 Test Item Value Reference Range Interpretation Comments APTT Patient (test code See_Comment H [Au tomated message] = 3173-2) The system [employer] generated this result transmitted ref erence range: 26 - 36 Seconds. The reference range was not used to int erpret this result as normal/abnormal . Lab Interpretation (test Abnormal code = 87106-9) [facility] METABOLIC PANEL (NA, K, CL, CO2, GLUCOSE, BUN, CREATININE, CA)2020-10-30 05:54:18 Test Item Value Reference Range Interpretation Comments NA (test code = 150 mmol/L 135-145 H 1955866661) K (test code = 3.8 mmol/L 3.5-5.0 9778505044) CL (test code = 122 mmol/L 98-108 H 6895012304) CO2 TOTAL (test code = 20 mmol/L 23-31 L 2124103711) AGAP (test code = 2-16 6944622483) BUN (test code = 49 mg/dL 7-23 H 1506690328) GLUCOSE (test code = 261 mg/dL 70-110 H 2630505177) CREATININE (test code = 1.40 mg/dL 0.60-1.25 H 7812709601) CALCIUM (test code = 8.2 mg/dL 8.6-10.6 L 4868564112) eGFR (test code = mL/min/1.73m2 8377559985) JUAN LUIS (test code = JUAN LUIS) Association of Glomerular Filtration Rate (GFR) and Staging of Kidney Disease* + --+ --+ ------+| GFR (mL/min/1.73 m2) ?| With Kidney Damage ?| ?Without Kidney Damage+ --------+ --------+ +| ?>90 ?| ?Stage one ?| ? Normal ?+ ---+ ---+ -------+| ?60-89 ?| ?Stage two ?| ? Decreased GFR ? + --+ --+ ------+| ?30-59 ?| ?Stage three ?| ? Stage three ? + --+ --+ ------+| ?15-29 ?| ?Stage four ? | ? Stage four ?+ ---+ ---+ -------+| ?<15 (or dialysis) ? ?| ?Stage five ? | ? Stage five ?+ ---+ ---+ -------+ *Each stage assumes the associated GFR level has been in effect for at least three months. ?Stages 1 to 5, with or without kidney disease, indicate chronic kidney disease. Notes: Determination of stages one and two (with eGFR >59mL/min/1.73 m2) requires estimation of kidney damage for at least three months as defined by structural or functional abnormalities of the kidney, manifested by either:Pathological abnormalities or Markers of kidney damage (including abnormalities in the composition of the blood or urine or abnormalities in imaging tests). Lab Interpretation Abnormal (test code = 29992-7) [facility]53:53 Test Item Value Reference Range Interpretation Comments MAGNESIUM (test code = 9340080155) 2.5 mg/dL 1.7-2.4 H Lab Interpretation (test code = Abnormal 02142-4) [facility] GLUCOSE (AUTOMATED)2020-10-30 03:26:07 Test Item Value Reference Range Interpretation Comments POCT GLU (test code = 8635012627) 246 mg/dL 70-110 H Lab Interpretation (test code = Abnormal 99617-8) [facility] GLUCOSE (AUTOMATED)2020-10-30 00:46:09 Test Item Value Reference Range Interpretation Comments POCT GLU (test code = 4639683091) 238 mg/dL 70-110 H Lab Interpretation (test code = Abnormal 34063-2) [facility]2020-10-29 23:13:49 Test Item Value Reference Range Interpretation Comments APTT Patient (test code See_Comment H [Au tomated message] = 3173-2) The system [employer] generated this result transmitted ref erence range: 26 - 36 Seconds. The reference range was not used to int erpret this result as normal/abnormal . Lab Interpretation (test Abnormal code = 94378-5) [facility]2020-10-29 22:25:56 Test Item Value Reference Range Interpretation Comments POCT GLU (test code = 6746440339) 243 mg/dL 70-110 H Lab Interpretation (test code = Abnormal 61119-5) [facility] 20:59:19 Test Item Value Reference Range Interpretation Comments MAGNESIUM (test code = 3046104099) 2.4 mg/dL 1.7-2.4 Lab Interpretation (test code = Normal 33257-0) [facility] (NA, K, CL, CO2, GLUCOSE, BUN, CREATININE, CA)2020-10-29 20:41:28 Test Item Value Reference Range Interpretation Comments NA (test code = 150 mmol/L 135-145 H 5482325437) K (test code = 4.0 mmol/L 3.5-5.0 6125110341) CL (test code = 123 mmol/L 98-108 H 4888268288) CO2 TOTAL (test code = 19 mmol/L 23-31 L 8708471590) AGAP (test code = 2-16 4946403347) BUN (test code = 49 mg/dL 7-23 H 9546996076) GLUCOSE (test code = 197 mg/dL 70-110 H 8740182165) CREATININE (test code = 1.35 mg/dL 0.60-1.25 H 8040098838) CALCIUM (test code = 8.6 mg/dL 8.6-10.6 9832224024) eGFR (test code = mL/min/1.73m2 7587312435) JUAN LUIS (test code = JUAN LUIS) Association of Glomerular Filtration Rate (GFR) and Staging of Kidney Disease* + --+ --+ ------+| GFR (mL/min/1.73 m2) ?| With Kidney Damage ?| ?Without Kidney Damage+ --------+ --------+ +| ?>90 ?| ?Stage one ?| ? Normal ?+ ---+ ---+ -------+| ?60-89 ?| ?Stage two ?| ? Decreased GFR ? + --+ --+ ------+| ?30-59 ?| ?Stage three ?| ? Stage three ? + --+ --+ ------+| ?15-29 ?| ?Stage four ? | ? Stage four ?+ ---+ ---+ -------+| ?<15 (or dialysis) ? ?| ?Stage five ? | ? Stage five ?+ ---+ ---+ -------+ *Each stage assumes the associated GFR level has been in effect for at least three months. ?Stages 1 to 5, with or without kidney disease, indicate chronic kidney disease. Notes: Determination of stages one and two (with eGFR >59mL/min/1.73 m2) requires estimation of kidney damage for at least three months as defined by structural or functional abnormalities of the kidney, manifested by either:Pathological abnormalities or Markers of kidney damage (including abnormalities in the composition of the blood or urine or abnormalities in imaging tests). Lab Interpretation Abnormal (test code = 23378-7) [facility] GLUCOSE (AUTOMATED)2020-10-29 19:13:21 Test Item Value Reference Range Interpretation Comments POCT GLU (test code = 6459395181) 196 mg/dL 70-110 H Lab Interpretation (test code = Abnormal 50196-6) [facility] GLUCOSE (AUTOMATED)2020-10-29 16:28:35 Test Item Value Reference Range Interpretation Comments POCT GLU (test code = 0664573020) 192 mg/dL 70-110 H Lab Interpretation (test code = Abnormal 59029-9) [facility] by [id number] 16:25:18 Test Item Value Reference Range Interpretation Comments MSSA Screen by Britney MTZ (test code Negative Negative = 03785-7) MRSA/MSSA Positive? (test code = No No 8011388450) Lab Interpretation (test code = Normal 79846-9) [facility] Screen by [id number] 16:25:18 Test Item Value Reference Range Interpretation Comments MSSA Screen by Britney MTZ (test code Negative Negative = 88613-6) MRSA/MSSA Positive? (test code = No No 5413043884) Lab Interpretation (test code = Normal 35412-1) [facility] by PCR, [id number] 16:25:18 Test Item Value Reference Range Interpretation Comments MSSA Screen by PCR, Britney (test code Negative Negative = 81715-4) MRSA/MSSA Positive? (test code = No No 3283600820) Lab Interpretation (test code = Normal 61274-5) [facility] [id number] 16:18:19 Test Item Value Reference Range Interpretation Comments TROPONIN I (test 0.397 ng/mL See_Comment H [Automated code = 1993970935) message] The system which generated this result transmitted reference range : <=0.034. The reference range was not used to interpret this result as normal/abnormal . JUAN LUIS (test code = Equal or Less than JUAN LUIS) 0.034 ng/ml---Normal ?Note: Cardiac troponin begins to rise 3-4 hours after the onset of ischemia. Repeat in 4-6 hours if the sample was drawn within 3-4 hours of the onset of the symptom and found normal. Between 0.035 and 0.120 ng/mL--- Borderline. Questionable myocardial injury or necrosis ? ?Note: Serial measurement may be necessary to confirm or exclude the diagnosis of myocardial injury or necrosis; Clinical correlation (symptoms, EKGs, imaging studies, and others) required; Repeat in 4-6 hours if clinically indicated. ? Equal or Higher than 0.121 ng/mL---Abnormal. Myocardial Injury or Necrosis Likely ? Biotin has been reported to cause a negative bias, interpret results relative to patient's use of biotin. ? Lab Interpretation Abnormal (test code = 56587-1) [facility] [id number] 16:18:19 Test Item Value Reference Range Interpretation Comments TROPONIN I (test 0.397 ng/mL See_Comment H [Automated code = 1011546894) message] The system which generated this result transmitted reference range : <=0.034. The reference range was not used to interpret this result as normal/abnormal . JAUN LUIS (test code = Equal or Less than JUAN LUIS) 0.034 ng/ml---Normal ?Note: Cardiac troponin begins to rise 3-4 hours after the onset of ischemia. Repeat in 4-6 hours if the sample was drawn within 3-4 hours of the onset of the symptom and found normal. Between 0.035 and 0.120 ng/mL--- Borderline. Questionable myocardial injury or necrosis ? ?Note: Serial measurement may be necessary to confirm or exclude the diagnosis of myocardial injury or necrosis; Clinical correlation (symptoms, EKGs, imaging studies, and others) required; Repeat in 4-6 hours if clinically indicated. ? Equal or Higher than 0.121 ng/mL---Abnormal. Myocardial Injury or Necrosis Likely ? Biotin has been reported to cause a negative bias, interpret results relative to patient's use of biotin. ? Lab Interpretation Abnormal (test code = 26946-0) [facility] [id number] 16:18:19 Test Item Value Reference Range Interpretation Comments TROPONIN I (test 0.397 ng/mL See_Comment H [Automated code = 6210438080) message] The system which generated this result transmitted reference range : <=0.034. The reference range was not used to interpret this result as normal/abnormal . JUAN LUIS (test code = Equal or Less than JUAN LUIS) 0.034 ng/ml---Normal ?Note: Cardiac troponin begins to rise 3-4 hours after the onset of ischemia. Repeat in 4-6 hours if the sample was drawn within 3-4 hours of the onset of the symptom and found normal. Between 0.035 and 0.120 ng/mL--- Borderline. Questionable myocardial injury or necrosis ? ?Note: Serial measurement may be necessary to confirm or exclude the diagnosis of myocardial injury or necrosis; Clinical correlation (symptoms, EKGs, imaging studies, and others) required; Repeat in 4-6 hours if clinically indicated. ? Equal or Higher than 0.121 ng/mL---Abnormal. Myocardial Injury or Necrosis Likely ? Biotin has been reported to cause a negative bias, interpret results relative to patient's use of biotin. ? Lab Interpretation Abnormal (test code = 34077-9) [facility] (NA, K, CL, CO2, GLUCOSE, BUN, CREATININE, CA)2020-10-29 16:17:03 Test Item Value Reference Range Interpretation Comments NA (test code = 152 mmol/L 135-145 H 7038799945) K (test code = 4.2 mmol/L 3.5-5.0 5417821713) CL (test code = 124 mmol/L 98-108 H 7165356460) CO2 TOTAL (test code = 21 mmol/L 23-31 L 3981745032) AGAP (test code = 2-16 8280959483) BUN (test code = 49 mg/dL 7-23 H 1204526451) GLUCOSE (test code = 173 mg/dL 70-110 H 0432782036) CREATININE (test code = 1.34 mg/dL 0.60-1.25 H 3350461994) CALCIUM (test code = 8.8 mg/dL 8.6-10.6 0520990274) eGFR (test code = mL/min/1.73m2 2262779526) JUAN LUIS (test code = JUAN LUIS) Association of Glomerular Filtration Rate (GFR) and Staging of Kidney Disease* + --+ --+ ------+| GFR (mL/min/1.73 m2) ?| With Kidney Damage ?| ?Without Kidney Damage+ --------+ --------+ +| ?>90 ?| ?Stage one ?| ? Normal ?+ ---+ ---+ -------+| ?60-89 ?| ?Stage two ?| ? Decreased GFR ? + --+ --+ ------+| ?30-59 ?| ?Stage three ?| ? Stage three ? + --+ --+ ------+| ?15-29 ?| ?Stage four ? | ? Stage four ?+ ---+ ---+ -------+| ?<15 (or dialysis) ? ?| ?Stage five ? | ? Stage five ?+ ---+ ---+ -------+ *Each stage assumes the associated GFR level has been in effect for at least three months. ?Stages 1 to 5, with or without kidney disease, indicate chronic kidney disease. Notes: Determination of stages one and two (with eGFR >59mL/min/1.73 m2) requires estimation of kidney damage for at least three months as defined by structural or functional abnormalities of the kidney, manifested by either:Pathological abnormalities or Markers of kidney damage (including abnormalities in the composition of the blood or urine or abnormalities in imaging tests). Lab Interpretation Abnormal (test code = 91920-1) [facility] 15:37:55 Test Item Value Reference Range Interpretation Comments APTT Patient (test code See_Comment L [Au tomated message] = 3173-2) The system [employer] generated this result transmitted ref erence range: 26 - 36 Seconds. The reference range was not used to int erpret this result as normal/abnormal . Lab Interpretation (test Abnormal code = 65918-1) [id number] 14:00:01 Test Item Value Reference Range Interpretation Comments URINE CULTURE (test No aerobic growth (< code = 630-4) 1000 CFU/mL) [facility]2020-10[facility]29 12:55:31 Test Item Value Reference Range Interpretation Comments POCT GLU (test code = 0939558924) 185 mg/dL 70-110 H Lab Interpretation (test code = Abnormal 21548-5) [facility] [id number] 11:47:44 Metallic linear foreign body over the distal left ring finger metacarpalconsidered safe for MR imaging. EXAM: XR BONE SURVEY HISTORY: MRI COMPARISON: None FINDINGS: Limited imaging of the axial and appendicular skeleton demonstrates diffuseosteopenia. Left hip hemiarthroplasty changes are present. A Dobbhoff tube terminatesin the region of the gastric antrum. Sternotomy changes are present. Bilateral pleural effusions are seen with central vascular congestion. Moderate to severe arthritic changes involve the knee joints withleft-sided lateral femoral epicondylar screw fixation. Genu valgusdeformities are seen with extensive chondrocalcinosis and posteriorvascular calcifications. Vascular clips are seen over the posterior leftknee. Ulnar plus variance is seen bilaterally at the wrist joints withosteoarthritic change at the left and right DRUJ. Extensivechondrocalcinosis involves the wrists. ?A metallic linear foreign body isseen over the distal left ring finger metacarpal. An osseous body is notedat the level of the lateral right radiocarpal joint. 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 A Dobbhoff tube terminatesin the region of the gastric antrum. Sternotomy changes are present.Bilateral pleural effusions are seen with central vascular congestion.Moderate to severe arthritic changes involve the knee joints withleft-sided lateral femoral epicondylar screw fixation. Genu valgusdefor mities are seen with extensive chondrocalcinosis and posteriorvascular calcifications. Vascular clips are seen over the posterior leftknee.Ulnar plus variance is seen bilaterally at the wrist joints withosteoarthritic change at the left and right DRUJ. Extensivechondrocalcinosis involves the wrists. A metallic linear foreign body isseen over the distal left ring finger metacarpal. An osseous body isnotedat the level of the lateral right radiocarpal joint.IMPRESSIONMetallic linear foreign body overthe distal left ring finger metacarpalconsidered safe for MR imaging.[facility] [id number] 11:47:44 Metallic linear foreign body over the distal left ring finger metacarpalconsidered safe for MR imaging. EXAM: XR BONE SURVEY HISTORY: MRI COMPARISON: None FINDINGS: Limited imaging of the axial and appendicular skeleton demonstrates diffuseosteopenia. Left hip hemiarthroplasty changes are present. A Dobbhoff tube terminatesin the region of the gastric antrum. Sternotomy changes are present. Bilateral pleural effusions are seen with central vascular congestion. Moderate to severe arthritic changes involve the knee joints withleft-sided lateral femoral epicondylar screw fixation. Genu valgusdeformities are seen with extensive chondrocalcinosis and posteriorvascular calcifications. Vascular clips are seen over the posterior leftknee. Ulnar plus variance is seen bilaterally at the wrist joints wi thosteoarthritic change at the left and right DRUJ. Extensivechondrocalcinosis involves the wrists. ?A metallic linear foreign body isseen over the distal left ring finger metacarpal. An osseous body is notedat the level of the lateral right radiocarpal joint. 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 A Dobbhoff tube terminatesin the region of the gastric antrum. Sternotomy changes are present.Bilateral pleural effusions are seen with central vascular congestion.Moderate to severe arthritic changes involve the knee joints withleft-sided lateral femoral epicondylar screw fixation. Genu valgusdeformities are seen with extensive chondrocalcinosis and posteriorvascular calcifications. Vascular clips are seen over the posterior leftknee.Ulnar plus variance is seen bilaterally at the wrist joints wit hosteoarthritic change at the left and right DRUJ. Extensivechondrocalcinosis involves the wrists. A metallic linear foreign body isseen over the distal left ring finger metacarpal. An osseous body isnotedat the level of the lateral right radiocarpal joint.IMPRESSIONMetallic linear foreign body overthe distal left ring finger metacarpalconsidered safe for MR imaging.[facility] [id number] 11:47:44 Metallic linear foreign body over the distal left ring finger metacarpalconsidered safe for MR imaging. EXAM: XR BONE SURVEY HISTORY: MRI COMPARISON: None FINDINGS: Limited imaging of the axial and appendicular skeleton demonstrates diffuseosteopenia. Left hip hemiarthroplasty changes are present. A Dobbhoff tube terminatesin the region of the gastric antrum. Sternotomy changes are present. Bilateral pleural effusions are seen with central vascular congestion. Moderate to severe arthritic changes involve the knee joints withleft-sided lateral femoral epicondylar screw fixation. Genu valgusdeformities are seen with extensive chondrocalcinosis and posteriorvascular calcifications. Vascular clips are seen over the posterior leftknee. Ulnar plus variance is seen bilaterally at the wrist joints wi thosteoarthritic change at the left and right DRUJ. Extensivechondrocalcinosis involves the wrists. ?A metallic linear foreign body isseen over the distal left ring finger metacarpal. An osseous body is notedat the level of the lateral right radiocarpal joint. 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 A Dobbhoff tube terminatesin the region of the gastric antrum. Sternotomy changes are present.Bilateral pleural effusions are seen with central vascular congestion.Moderate to severe arthritic changes involve the knee joints withleft-sided lateral femoral epicondylar screw fixation. Genu valgusdeformities are seen with extensive chondrocalcinosis and posteriorvascular calcifications. Vascular clips are seen over the posterior leftknee.Ulnar plus variance is seen bilaterally at the wrist joints wit hosteoarthritic change at the left and right DRUJ. Extensivechondrocalcinosis involves the wrists. A metallic linear foreign body isseen over the distal left ring finger metacarpal. An osseous body isnotedat the level of the lateral right radiocarpal joint.IMPRESSIONMetallic linear foreign body overthe distal left ring finger metacarpalconsidered safe for MR imaging.[facility] HospitalBRADY [id number] 08:59:20 Test Item Value Reference Range Interpretation Comments TROPONIN I (test 0.426 ng/mL See_Comment H [Automated code = 9744067849) message] The system which generated this result transmitted reference range : <=0.034. The reference range was not used to interpret this result as normal/abnormal . JUAN LUIS (test code = Equal or Less than JUAN LUIS) 0.034 ng/ml---Normal ?Note: Cardiac troponin begins to rise 3-4 hours after the onset of ischemia. Repeat in 4-6 hours if the sample was drawn within 3-4 hours of the onset of the symptom and found normal. Between 0.035 and 0.120 ng/mL--- Borderline. Questionable myocardial injury or necrosis ? ?Note: Serial measurement may be necessary to confirm or exclude the diagnosis of myocardial injury or necrosis; Clinical correlation (symptoms, EKGs, imaging studies, and others) required; Repeat in 4-6 hours if clinically indicated. ? Equal or Higher than 0.121 ng/mL---Abnormal. Myocardial Injury or Necrosis Likely ? Biotin has been reported to cause a negative bias, interpret results relative to patient's use of biotin. ? Lab Interpretation Abnormal (test code = 54323-9) [facility] WITH [id number] 08:54:03 Test Item Value Reference Range Interpretation Comments WBC (test code = See_Comment H [Automated 6690-2) message] The sy stem which generated this result transmitted reference range : 4.20 - 10.70 10*3/?L. The reference range was not used to interpret this result as normal/abnormal . RBC (test code = See_Comment L [Automated 789-8) message] The sy stem which generated this result transmitted reference range : 4.26 - 5.52 10*6/?L. The reference range was not used to interpret this result as normal/abnormal . HGB (test code = 8.5 g/dL 12.2-16.4 L 718-7) HCT (test code = 26.2 % 38.4-49.3 L 4544-3) MCV (test code = 75.1 fL 81.7-95.6 L 787-2) MCH (test code = 24.4 pg 26.1-32.7 L 785-6) MCHC (test code = 32.4 g/dL 31.2-35.0 786-4) RDW-SD (test code = 59.0 fL 38.5-51.6 H 21109-6) RDW-CV (test code = 22.5 % 12.1-15.4 H 788-0) PLT (test code = See_Comment L [Automated 777-3) message] The sy stem which generated this result transmitted reference range : 150 - 328 10*3/ ?L. The reference r christine was not used to interpret this result as normal/abnormal . MPV (test code = 11.2 fL 9.8-13.0 27171-0) IPF % (test code = 2.4 % 1.2-10.7 Platelet count [id number]) measured by fluorescence method. NRBC/100 WBC (test See_Comment [Automat ed code = 8492863592) message] The system which generated this result transmitted reference range : 0.0 - 10.0 /100 WBCs. The refer ence range was not u sed to interpret th is result as normal/abnormal . NRBC x10^3 (test code <0.01 See_Comment [Auto mated = 7277396540) message] The s ystem which generated this result transmitted reference range : 10*3/?L. The reference range was not used to interpret this result as normal/abnormal . GRAN MAT (NEUT) % 76.4 % (test code = 770-8) IMM GRAN % (test code 3.00 % = 0918624624) LYMPH % (test code = 10.3 % 736-9) MONO % (test code = 9.1 % 5905-5) EOS % (test code = 0.8 % 713-8) BASO % (test code = 0.4 % 706-2) GRAN MAT x10^3(ANC) 9.02 10*3/uL 1.99-6.95 H (test code = 2977563418) IMM GRAN x10^3 (test 0.36 10*3/uL 0.00-0.06 H code = 1889673879) LYMPH x10^3 (test code 1.22 10*3/uL 1.09-3.23 = 731-0) MONO x10^3 (test code 1.08 10*3/uL 0.36-1.02 H = 742-7) EOS x10^3 (test code = 0.10 10*3/uL 0.06-0.53 711-2) BASO x10^3 (test code 0.05 10*3/uL 0.01-0.09 = 704-7) SCHISTOCYTES (test 1+ A code = 800-3) Lab Interpretation Abnormal (test code = 76141-6) [facility] METABOLIC PANEL (NA, K, CL, CO2, GLUCOSE, BUN, CREATININE, CA)2020-10-29 08:46:24 Test Item Value Reference Range Interpretation Comments NA (test code = 155 mmol/L 135-145 H 2533097489) K (test code = 4.4 mmol/L 3.5-5.0 9144838031) CL (test code = 126 mmol/L 98-108 H 7014641467) CO2 TOTAL (test code = 22 mmol/L 23-31 L 0985814808) AGAP (test code = 2-16 3216176724) BUN (test code = 50 mg/dL 7-23 H 2362364519) GLUCOSE (test code = 177 mg/dL 70-110 H 2400209637) CREATININE (test code = 1.29 mg/dL 0.60-1.25 H 1813137174) CALCIUM (test code = 8.6 mg/dL 8.6-10.6 0828316441) eGFR (test code = mL/min/1.73m2 6082698097) JUAN LUIS (test code = JUAN LUIS) Association of Glomerular Filtration Rate (GFR) and Staging of Kidney Disease* + --+ --+ ------+| GFR (mL/min/1.73 m2) ?| With Kidney Damage ?| ?Without Kidney Damage+ --------+ --------+ +| ?>90 ?| ?Stage one ?| ? Normal ?+ ---+ ---+ -------+| ?60-89 ?| ?Stage two ?| ? Decreased GFR ? + --+ --+ ------+| ?30-59 ?| ?Stage three ?| ? Stage three ? + --+ --+ ------+| ?15-29 ?| ?Stage four ? | ? Stage four ?+ ---+ ---+ -------+| ?<15 (or dialysis) ? ?| ?Stage five ? | ? Stage five ?+ ---+ ---+ -------+ *Each stage assumes the associated GFR level has been in effect for at least three months. ?Stages 1 to 5, with or without kidney disease, indicate chronic kidney disease. Notes: Determination of stages one and two (with eGFR >59mL/min/1.73 m2) requires estimation of kidney damage for at least three months as defined by structural or functional abnormalities of the kidney, manifested by either:Pathological abnormalities or Markers of kidney damage (including abnormalities in the composition of the blood or urine or abnormalities in imaging tests). Lab Interpretation Abnormal (test code = 19733-1) [facility]2020-10-29 07:10:56 Test Item Value Reference Range Interpretation Comments POCT GLU (test code = 4168331932) 175 mg/dL 70-110 H Lab Interpretation (test code = Abnormal 44131-7) [facility]TR[facility] [id number] 04:16:10 Test Item Value Reference Range Interpretation Comments TROPONIN I (test 0.454 ng/mL See_Comment H [Automated code = 5096214833) message] The system which generated this result transmitted reference range : <=0.034. The reference range was not used to interpret this result as normal/abnormal . JUAN LUIS (test code = Equal or Less than JUAN LUIS) 0.034 ng/ml---Normal ?Note: Cardiac troponin begins to rise 3-4 hours after the onset of ischemia. Repeat in 4-6 hours if the sample was drawn within 3-4 hours of the onset of the symptom and found normal. Between 0.035 and 0.120 ng/mL--- Borderline. Questionable myocardial injury or necrosis ? ?Note: Serial measurement may be necessary to confirm or exclude the diagnosis of myocardial injury or necrosis; Clinical correlation (symptoms, EKGs, imaging studies, and others) required; Repeat in 4-6 hours if clinically indicated. ? Equal or Higher than 0.121 ng/mL---Abnormal. Myocardial Injury or Necrosis Likely ? Biotin has been reported to cause a negative bias, interpret results relative to patient's use of biotin. ? Lab Interpretation Abnormal (test code = 56063-6) [facility] [id number] 04:14:28 Test Item Value Reference Range Interpretation Comments WBC (test code = See_Comment H [Automated 6690-2) message] The sy stem which generated this result transmitted reference range : 4.20 - 10.70 10*3/?L. The reference range was not used to interpret this result as normal/abnormal . RBC (test code = See_Comment L [Automated 789-8) message] The sy stem which generated this result transmitted reference range : 4.26 - 5.52 10*6/?L. The reference range was not used to interpret this result as normal/abnormal . HGB (test code = 8.3 g/dL 12.2-16.4 L 718-7) HCT (test code = 25.1 % 38.4-49.3 L 4544-3) MCV (test code = 74.0 fL 81.7-95.6 L 787-2) MCH (test code = 24.5 pg 26.1-32.7 L 785-6) MCHC (test code = 33.1 g/dL 31.2-35.0 786-4) RDW-SD (test code = 57.0 fL 38.5-51.6 H 89691-2) RDW-CV (test code = 22.1 % 12.1-15.4 H 788-0) PLT (test code = See_Comment L [Automated 777-3) message] The sy stem which generated this result transmitted reference range : 150 - 328 10*3/ ?L. The reference r christine was not used to interpret this result as normal/abnormal . MPV (test code = Not Measure d 54471-8) IPF % (test code = 2.1 % 1.2-10.7 Platelet count 1082661594) measured by fluorescence method. NRBC/100 WBC (test See_Comment [Automat ed code = 6643680494) message] The system which generated this result transmitted reference range : 0.0 - 10.0 /100 WBCs. The refer ence range was not u sed to interpret th is result as normal/abnormal . NRBC x10^3 (test code <0.01 See_Comment [Auto mated = 5149158412) message] The s ystem which generated this result transmitted reference range : 10*3/?L. The reference range was not used to interpret this result as normal/abnormal . GRAN MAT (NEUT) % 74.8 % (test code = 770-8) IMM GRAN % (test code 2.80 % = 1396813572) LYMPH % (test code = 10.9 % 736-9) MONO % (test code = 10.4 % 5905-5) EOS % (test code = 0.7 % 713-8) BASO % (test code = 0.4 % 706-2) GRAN MAT x10^3(ANC) 8.42 10*3/uL 1.99-6.95 H (test code = 0211479138) IMM GRAN x10^3 (test 0.31 10*3/uL 0.00-0.06 H code = 5689723539) LYMPH x10^3 (test code 1.23 10*3/uL 1.09-3.23 = 731-0) MONO x10^3 (test code 1.17 10*3/uL 0.36-1.02 H = 742-7) EOS x10^3 (test code = 0.08 10*3/uL 0.06-0.53 711-2) BASO x10^3 (test code 0.04 10*3/uL 0.01-0.09 = 704-7) BASO STIPPLING (test Present A code = 703-9) SCHISTOCYTES (test 1+ A code = 800-3) Lab Interpretation Abnormal (test code = 88942-5) [facility] METABOLIC PANEL (NA, K, CL, CO2, GLUCOSE, BUN, CREATININE, CA)2020-10-29 04:00:13 Test Item Value Reference Range Interpretation Comments NA (test code = 154 mmol/L 135-145 H 6334649000) K (test code = 3.0 mmol/L 3.5-5.0 L 8782153061) CL (test code = 125 mmol/L 98-108 H 4247416384) CO2 TOTAL (test code = 20 mmol/L 23-31 L 6433095768) AGAP (test code = 2-16 9981505129) BUN (test code = 50 mg/dL 7-23 H 2029955827) GLUCOSE (test code = 144 mg/dL 70-110 H 7564955933) CREATININE (test code = 1.36 mg/dL 0.60-1.25 H 1220866776) CALCIUM (test code = 8.8 mg/dL 8.6-10.6 2442470973) eGFR (test code = mL/min/1.73m2 6771107238) JUAN LUIS (test code = JUAN LUIS) Association of Glomerular Filtration Rate (GFR) and Staging of Kidney Disease* + --+ --+ ------+| GFR (mL/min/1.73 m2) ?| With Kidney Damage ?| ?Without Kidney Damage+ --------+ --------+ +| ?>90 ?| ?Stage one ?| ? Normal ?+ ---+ ---+ -------+| ?60-89 ?| ?Stage two ?| ? Decreased GFR ? + --+ --+ ------+| ?30-59 ?| ?Stage three ?| ? Stage three ? + --+ --+ ------+| ?15-29 ?| ?Stage four ? | ? Stage four ?+ ---+ ---+ -------+| ?<15 (or dialysis) ? ?| ?Stage five ? | ? Stage five ?+ ---+ ---+ -------+ *Each stage assumes the associated GFR level has been in effect for at least three months. ?Stages 1 to 5, with or without kidney disease, indicate chronic kidney disease. Notes: Determination of stages one and two (with eGFR >59mL/min/1.73 m2) requires estimation of kidney damage for at least three months as defined by structural or functional abnormalities of the kidney, manifested by either:Pathological abnormalities or Markers of kidney damage (including abnormalities in the composition of the blood or urine or abnormalities in imaging tests). Lab Interpretation Abnormal (test code = 20565-1) [facility] 03:58:47 Test Item Value Reference Range Interpretation Comments MAGNESIUM (test code = 2860027563) 2.5 mg/dL 1.7-2.4 H Lab Interpretation (test code = Abnormal 07574-4) [facility]2020-10-29 03:58:47 Test Item Value Reference Range Interpretation Comments POCT GLU (test code = 7199834993) 134 mg/dL 70-110 H Lab Interpretation (test code = Abnormal 31540-1) [facility] 03:39:08 Test Item Value Reference Range Interpretation Comments Fibrinogen (test code = 3269693182) 441 mg/dL 167-453 Lab Interpretation (test code = Normal 61693-1) [facility] HospitalPROTHROMBIN [facility] / [id number] 03:39:08 Test Item Value Reference Range Interpretation Comments PROTIME PATIENT (test See_Comment H [Auto mated message] code = 5964-2) The system wh ich generated this result transmitted ref erence range: 10.1 - 1 2.6 Seconds. The reference range was not used to int erpret this result as normal/abnormal . INR (test code = 6301-6) Nor mal INR <1.1; Warfarin Therap eutic range 2.0 to 3. 0 or 2.5 to 3.5, dep ending upon the indica tions. Lab Interpretation (test Abnormal code = 86056-9) [facility] 03:39:08 Test Item Value Reference Range Interpretation Comments Fibrinogen (test code = 0931672797) 441 mg/dL 167-453 Lab Interpretation (test code = Normal 57345-1) [facility] 03:39:08 Test Item Value Reference Range Interpretation Comments Fibrinogen (test code = 1270068961) 441 mg/dL 167-453 Lab Interpretation (test code = Normal 28012-9) [facility] + LACTIC [id number] 03:20:11 Test Item Value Reference Range Interpretation Comments PH (test code = 2) 7.35-7.45 H PCO2 (test code = See_Comment L [Automat ed 6281808273) message] The sy stem which generated this result transmitted reference range : 35 - 45 mmHg. The reference range was not used to interpret this result as normal/abnormal . PO2 (test code = See_Comment H [Automated 1083716495) message] The sy stem which generated this result transmitted reference range : 80 - 100 mmHg. The reference range was not used to interpret this result as normal/abnormal . HCO3 (test code = See_Comment [Automate d 8551910031) message] The sy stem which generated this result transmitted reference range : 22 - 26 mEq/L. The reference range was not used to interpret this result as normal/abnormal . BE (test code = See_Comment [Automated 9180490508) message] The sy stem which generated this result transmitted reference range : -3.0 - 3.0 mEq/ L. The reference r christine was not used to interpret this result as normal/abnormal . THB (test code = 9.3 g/dL 13.5-18.0 L 1949650839) %O2HB (test code = 97.5 % 94.0-99.0 9222218006) %COHB ART (test code = 0.3 % 0.0-1.5 5149476907) %METHB ART (test code = 0.3 % 0.4-1.5 L 7738671812) VOL%O2 ART (test code = 12.9 % 15.0-23.0 L 5481558132) NA (test code = 152 mmol/L 135-145 H 7492541561) K+ (test code = 3.0 mmol/L 3.5-5.0 L 5839359899) AC CA IONZ (test code = 5.00 mg/dL 4.50-5.30 2280820954) GLUCOSE (test code = 142 mg/dL 70-110 H 4490113043) LACTIC ACID (test code 1.59 mmol/L 0.50-2.20 = 5334954808) Lab Interpretation Abnormal (test code = 81773-9) [facility] LACTIC [id number] 03:20:11 Test Item Value Reference Range Interpretation Comments PH (test code = 2) 7.35-7.45 H PCO2 (test code = See_Comment L [Automat ed 5199876453) message] The sy stem which generated this result transmitted reference range : 35 - 45 mmHg. The reference range was not used to interpret this result as normal/abnormal . PO2 (test code = See_Comment H [Automated 0818335220) message] The sy stem which generated this result transmitted reference range : 80 - 100 mmHg. The reference range was not used to interpret this result as normal/abnormal . HCO3 (test code = See_Comment [Automate d 3621257971) message] The sy stem which generated this result transmitted reference range : 22 - 26 mEq/L. The reference range was not used to interpret this result as normal/abnormal . BE (test code = See_Comment [Automated 8713809114) message] The sy stem which generated this result transmitted reference range : -3.0 - 3.0 mEq/ L. The reference r christine was not used to interpret this result as normal/abnormal . THB (test code = 9.3 g/dL 13.5-18.0 L 5926809214) %O2HB (test code = 97.5 % 94.0-99.0 0433723857) %COHB ART (test code = 0.3 % 0.0-1.5 8323022257) %METHB ART (test code = 0.3 % 0.4-1.5 L 0580976675) VOL%O2 ART (test code = 12.9 % 15.0-23.0 L 8942039310) NA (test code = 152 mmol/L 135-145 H 9948217403) K+ (test code = 3.0 mmol/L 3.5-5.0 L 8620359124) AC CA IONZ (test code = 5.00 mg/dL 4.50-5.30 7503338064) GLUCOSE (test code = 142 mg/dL 70-110 H 5475146031) LACTIC ACID (test code 1.59 mmol/L 0.50-2.20 = 8633333884) Lab Interpretation Abnormal (test code = 69136-3) [facility] L[facility]IC [id number] 03:20:11 Test Item Value Reference Range Interpretation Comments PH (test code = 2) 7.35-7.45 H PCO2 (test code = See_Comment L [Automat ed 0461074340) message] The sy stem which generated this result transmitted reference range : 35 - 45 mmHg. The reference range was not used to interpret this result as normal/abnormal . PO2 (test code = See_Comment H [Automated 8930692693) message] The sy stem which generated this result transmitted reference range : 80 - 100 mmHg. The reference range was not used to interpret this result as normal/abnormal . HCO3 (test code = See_Comment [Automate d [id number]) message] The sy stem which generated this result transmitted reference range : 22 - 26 mEq/L. The reference range was not used to interpret this result as normal/abnormal . BE (test code = See_Comment [Automated [id number]) message] The sy stem which generated this result transmitted reference range : -3.0 - 3.0 mEq/ L. The reference r christine was not used to interpret this result as normal/abnormal . THB (test code = 9.3 g/dL 13.5-18.0 L 4405931954) %O2HB (test code = 97.5 % 94.0-99.0 7131964503) %COHB ART (test code = 0.3 % 0.0-1.5 2974213520) %METHB ART (test code = 0.3 % 0.4-1.5 L 5888895772) VOL%O2 ART (test code = 12.9 % 15.0-23.0 L 2057297183) NA (test code = 152 mmol/L 135-145 H 5681144115) K+ (test code = 3.0 mmol/L 3.5-5.0 L 5133448843) AC CA IONZ (test code = 5.00 mg/dL 4.50-5.30 9266874034) GLUCOSE (test code = 142 mg/dL 70-110 H 3280397517) LACTIC ACID (test code 1.59 mmol/L 0.50-2.20 = 0711572815) Lab Interpretation Abnormal (test code = 39072-6) [id number] 03:20:06 No acute intracranial hemorrhage or mass effect. Preliminary Report Dictated by Resident: William Salazar ?MD. Omid, have reviewed this study and agree with theabove report.CT HEAD WO CONTRAST HISTORY: ams COMPARISON: ?10/24/20. TECHNIQUE: Axial CT of the head was performed and reconstructed at 5 mmintervals. Coronal and sagittal reformatted images were generated. FINDINGS: No intracranial abnormality such as hemorrhage, edema, mass-effect, midlineshift, or extra axial fluid collection is appreciated. The gonzales- whitematter differentiation is preserved. The ventricles, sulci, and basal cisterns are within normal limits for thepatient's age. No hydrocephalus is seen. Redemonstration of right basal ganglia/del real radiata lacunar infarct.Right frontal centrum semiovale lacunar infarct as well. Probable chronicischemic changes of the white matter. Intracranial atherosclerosis. The calvarium and skull base are intact. Partial opacification left ethmoidair cells and both sphenoid sinuses. Mucosal thickening of the leftmaxillary sinus. Left mastoid air cell and middle ear cavity opacification.Partial opacification of the right mastoid air cells. A nasogastric tube ispartially visualized. [facility], Radiant Results Inft User - 10/28/2020 10:21 PM CDTCT HEAD WO CONTRASTHISTORY: ams COMPARISON: 10/24/20.TECHNIQUE: Axial CT of the head was performed and reconstructed at 5 mmintervals. Coronaland sagittal reformatted images were generated.FINDINGS:No intracranial abnormality such as hemorrhage, edema, mass- effect, midlineshift, or extra axial fluid collection is appreciated. The gonzales-whitematter differentiation is preserved.The ventricles, sulci, and basal cisterns are within normal limitsfor thepatient's age. No hydrocephalus is seen.Redemonstration of right basal ganglia/del real radiatalacunar infarct.Right frontal centrum semiovale lacunar infarct as well. Probable chronicischemic stanley nges of the white matter. Intracranial atherosclerosis.The calvarium and skull base are intact. Partial opacification left ethmoidair cells and both sphenoid sinuses. Mucosal thickening of the leftmaxillary sinus. Left mastoid air cell and middle ear cavity opacification.Partial opacification of the right mastoid air cells. A nasogastric tube ispartially visualized.IMPRESSIONNo acute intracranial hemorrhage or mass effect.Preliminary Report Dictated by Resident: William Sawyre MD., have reviewed this study and agree with theabove report.[facility] [id number] 03:20:06 No acute intracranial hemorrhage or mass effect. Preliminary Report Dictated by Resident: William Salazar MD., have reviewed this study and agree with theabove report.CT HEAD WO CONTRAST HISTORY: ams COMPARISON: ?10/24/20. TECHNIQUE: Axial CT of the head was performed and reconstr ucted at 5 mmintervals. Coronal and sagittal reformatted images were generated. FINDINGS: No intracranial abnormality such as hemorrhage, edema, mass-effect, midlineshift, or extra axial fluid collection is appreciated. The gonzales- whitematter differentiation is preserved. The ventricles, sulci, and basal cisterns are within normal limits for thepatient's age. No hydrocephalus is seen. Redemonstration of right basal ganglia/del real radiata lacunar infarct.Right frontal centrum semiovale lacunar infarct as well. Probable chronicischemic changes of the white matter. Intracranial atherosclerosis. The calvarium and skull base are intact. Partial opacification left ethmoidair cells and both sphenoid sinuses. Mucosal thickening of the leftmaxillary sinus. Left mastoid air cell and middle ear cavity opacification.Partial opacification of the right mastoid air cells. A nasogastric tube ispartially visualized. [facility], Radiant Results Inft User - 10/28/2020 10:21 PM CDTCT HEAD WO CONTRASTHISTORY: ams COMPARISON: 10/24/20.TECHNIQUE: Axial CT of the head was performed and reconstructed at 5 mmintervals. Coronaland sagittal reformatted images were generated.FINDINGS:No intracranial abnormality such as hemorrhage, edema, mass- effect, midlineshift, or extra axial fluid collection is appreciated. The gonzales-whitematter differentiation is preserved.The ventricles, sulci, and basal cisterns are within normal limitsfor thepatient's age. No hydrocephalus is seen.Redemonstration of right basal ganglia/del real radiatalacunar infarct.Right frontal centrum semiovale lacunar infarct as well. Probable chronicischemic stanley nges of the white matter. Intracranial atherosclerosis.The calvarium and skull base are intact. Partial opacification left ethmoidair cells and both sphenoid sinuses. Mucosal thickening of the leftmaxillary sinus. Left mastoid air cell and middle ear cavity opacification.Partial opacification of the right mastoid air cells. A nasogastric tube ispartially visualized.IMPRESSIONNo acute intracranial hemorrhage or mass effect.Preliminary Report Dictated by Resident: William Sawyer MD., have reviewed this study and agree with theabove report.[facility] [id number] 03:20:06 No acute intracranial hemorrhage or mass effect. Preliminary Report Dictated by Resident: William Salazar MD., have reviewed this study and agree with theabove report.CT HEAD WO CONTRAST HISTORY: ams COMPARISON: ?10/24/20. TECHNIQUE: Axial CT of the head was performed and reconstr ucted at 5 mmintervals. Coronal and sagittal reformatted images were generated. FINDINGS: No intracranial abnormality such as hemorrhage, edema, mass-effect, midlineshift, or extra axial fluid collection is appreciated. The gonzales- whitematter differentiation is preserved. The ventricles, sulci, and basal cisterns are within normal limits for thepatient's age. No hydrocephalus is seen. Redemonstration of right basal ganglia/del real radiata lacunar infarct.Right frontal centrum semiovale lacunar infarct as well. Probable chronicischemic changes of the white matter. Intracranial atherosclerosis. The calvarium and skull base are intact. Partial opacification left ethmoidair cells and both sphenoid sinuses. Mucosal thickening of the leftmaxillary sinus. Left mastoid air cell and middle ear cavity opacification.Partial opacification of the right mastoid air cells. A nasogastric tube ispartially visualized. [facility], Radiant Results Inft User - 10/28/2020 10:21 PM CDTCT HEAD WO CONTRASTHISTORY: ams COMPARISON: 10/24/20.TECHNIQUE: Axial CT of the head was performed and reconstructed at 5 mmintervals. Coronaland sagittal reformatted images were generated.FINDINGS:No intracranial abnormality such as hemorrhage, edema, mass- effect, midlineshift, or extra axial fluid collection is appreciated. The gonzales-whitematter differentiation is preserved.The ventricles, sulci, and basal cisterns are within normal limitsfor thepatient's age. No hydrocephalus is seen.Redemonstration of right basal ganglia/del real radiatalacunar infarct.Right frontal centrum semiovale lacunar infarct as well. Probable chronicischemic stanley nges of the white matter. Intracranial atherosclerosis.The calvarium and skull base are intact. Partial opacification left ethmoidair cells and both sphenoid sinuses. Mucosal thickening of the leftmaxillary sinus. Left mastoid air cell and middle ear cavity opacification.Partial opacification of the right mastoid air cells. A nasogastric tube ispartially visualized.IMPRESSIONNo acute intracranial hemorrhage or mass effect.Preliminary Report Dictated by Resident: William Sawyer MD., have reviewed this study and agree with theabove report.[facility] GLUCOSE (AUTOMATED) 2020-10-29 01:10:09 Test Item Value Reference Range Interpretation Comments POCT GLU (test code = 1011742302) 178 mg/dL 70-110 H Lab Interpretation (test code = Abnormal 70100-6) [facility] GLUCOSE (AUTOMATED)2020-10-28 21:43:56 Test Item Value Reference Range Interpretation Comments POCT GLU (test code = 2126657807) 131 mg/dL 70-110 H Lab Interpretation (test code = Abnormal 21477-0) [facility] GLUCOSE (AUTOMATED)2020-10-28 16:37:06 Test Item Value Reference Range Interpretation Comments POCT GLU (test code = 5547797765) 345 mg/dL 70-110 H Lab Interpretation (test code = Abnormal 49888-1) [facility] [id number] 15:26:11EXAM: XR CHEST 1 VW HISTORY: COUGH COMPARISON: None. FINDINGS: Mild perihilar vascular congestion is accompanied by mild basilar pulmonaryedema on both sides with small pleural effusions blunting bothcostophrenicangles. The mid and upper lungs are clear. The heart and great vessels arenormal. The nasogastric tube passes through the thorax and into thestomach. ? [facility], Radiant Results Inft User - 10/28/2020 10:27 AM CDTEXAM: XR CHEST 1 VWHISTORY: COUGH COMPARISON: None.FINDINGS:Mild perihilar vascular congestion is accompanied by mild basilar pulmonaryedema on both sides with small pleural effusions blunting both costophrenicangles. The mid and upper lungs are clear. The heart and great vessels arenormal. The nasogastric tube passes through the thorax and into thestomach.[facility] + LACTIC [id number] 13:57:21 Test Item Value Reference Range Interpretation Comments PH (test code = 2) 7.35-7.45 H PCO2 (test code = See_Comment L [Automat ed 8522609752) message] The sy stem which generated this result transmitted reference range : 35 - 45 mmHg. The reference range was not used to interpret this result as normal/abnormal . PO2 (test code = See_Comment L [Automated 3062827334) message] The sy stem which generated this result transmitted reference range : 80 - 100 mmHg. The reference range was not used to interpret this result as normal/abnormal . HCO3 (test code = See_Comment L [Automate d 3181347526) message] The sy stem which generated this result transmitted reference range : 22 - 26 mEq/L. The reference range was not used to interpret this result as normal/abnormal . BE (test code = See_Comment L [Automated 1071232006) message] The sy stem which generated this result transmitted reference range : -3.0 - 3.0 mEq/ L. The reference r christine was not used to interpret this result as normal/abnormal . THB (test code = 10.2 g/dL 13.5-18.0 L 7739446098) %O2HB (test code = 89.8 % 94.0-99.0 L 9793532873) %COHB ART (test code = 0.3 % 0.0-1.5 7921091147) %METHB ART (test code = 0.3 % 0.4-1.5 L 0419881469) VOL%O2 ART (test code = 12.9 % 15.0-23.0 L 2102029582) NA (test code = 151 mmol/L 135-145 H 8924777655) K+ (test code = 3.7 mmol/L 3.5-5.0 6087444099) AC CA IONZ (test code = 5.10 mg/dL 4.50-5.30 1119662871) GLUCOSE (test code = 359 mg/dL 70-110 H 2042227108) LACTIC ACID (test code 1.43 mmol/L 0.50-2.20 = 7042060822) Lab Interpretation Abnormal (test code = 23107-4) [facility] GLUCOSE (AUTOMATED)2020-10-28 13:45:52 Test Item Value Reference Range Interpretation Comments POCT GLU (test code = 2887172508) 355 mg/dL 70-110 H Lab Interpretation (test code = Abnormal 64601-0) [facility] GLUCOSE (AUTOMATED)2020-10-28 13:18:15 Test Item Value Reference Range Interpretation Comments POCT GLU (test code = 0889950767) 322 mg/dL 70-110 H Lab Interpretation (test code = Abnormal 83740-1) [facility] GLUCOSE (AUTOMATED)2020-10-28 10:42:20 Test Item Value Reference Range Interpretation Comments POCT GLU (test code = 9193005719) 303 mg/dL 70-110 H Lab Interpretation (test code = Abnormal 97144-1) [facility] [id number] 08:53:59 Test Item Value Reference Range Interpretation Comments TROPONIN I (test 0.352 ng/mL See_Comment H [Automated code = 1085808935) message] The system which generated this result transmitted reference range : <=0.034. The reference range was not used to interpret this result as normal/abnormal . JUAN LUIS (test code = Equal or Less than JUAN LUIS) 0.034 ng/ml---Normal ?Note: Cardiac troponin begins to rise 3-4 hours after the onset of ischemia. Repeat in 4-6 hours if the sample was drawn within 3-4 hours of the onset of the symptom and found normal. Between 0.035 and 0.120 ng/mL--- Borderline. Questionable myocardial injury or necrosis ? ?Note: Serial measurement may be necessary to confirm or exclude the diagnosis of myocardial injury or necrosis; Clinical correlation (symptoms, EKGs, imaging studies, and others) required; Repeat in 4-6 hours if clinically indicated. ? Equal or Higher than 0.121 ng/mL---Abnormal. Myocardial Injury or Necrosis Likely ? Biotin has been reported to cause a negative bias, interpret results relative to patient's use of biotin. ? Lab Interpretation Abnormal (test code = 01027-2) [facility] (NA, K, CL, CO2, GLUCOSE, BUN, CREATININE, CA)2020-10-28 08:42:28 Test Item Value Reference Range Interpretation Comments NA (test code = 151 mmol/L 135-145 H 5974633941) K (test code = 3.6 mmol/L 3.5-5.0 1423699023) CL (test code = 125 mmol/L 98-108 H 7049589318) CO2 TOTAL (test code = 20 mmol/L 23-31 L 8584349856) AGAP (test code = 2-16 1515759077) BUN (test code = 50 mg/dL 7-23 H 0281214647) GLUCOSE (test code = 303 mg/dL 70-110 H 0181559848) CREATININE (test code = 1.25 mg/dL 0.60-1.25 2718541174) CALCIUM (test code = 9.1 mg/dL 8.6-10.6 8016917083) eGFR (test code = mL/min/1.73m2 2619099596) JUAN LUIS (test code = JUAN LUIS) Association of Glomerular Filtration Rate (GFR) and Staging of Kidney Disease* + --+ --+ ------+| GFR (mL/min/1.73 m2) ?| With Kidney Damage ?| ?Without Kidney Damage+ --------+ --------+ +| ?>90 ?| ?Stage one ?| ? Normal ?+ ---+ ---+ -------+| ?60-89 ?| ?Stage two ?| ? Decreased GFR ? + --+ --+ ------+| ?30-59 ?| ?Stage three ?| ? Stage three ? + --+ --+ ------+| ?15-29 ?| ?Stage four ? | ? Stage four ?+ ---+ ---+ -------+| ?<15 (or dialysis) ? ?| ?Stage five ? | ? Stage five ?+ ---+ ---+ -------+ *Each stage assumes the associated GFR level has been in effect for at least three months. ?Stages 1 to 5, with or without kidney disease, indicate chronic kidney disease. Notes: Determination of stages one and two (with eGFR >59mL/min/1.73 m2) requires estimation of kidney damage for at least three months as defined by structural or functional abnormalities of the kidney, manifested by either:Pathological abnormalities or Markers of kidney damage (including abnormalities in the composition of the blood or urine or abnormalities in imaging tests). Lab Interpretation Abnormal (test code = 51862-9) [facility] WITHOUT [id number] 08:18:28 Test Item Value Reference Range Interpretation Comments WBC (test code = See_Comment [Automated message] 6690-2) The system [employer] generated this result transmitted ref erence range: 4.20 - 1 0.70 10*3/?L. The reference range was not used to int erpret this result as normal/abnormal . RBC (test code = 789-8) See_Comment L [Au tomated message] The system [employer] generated this result transmitted ref erence range: 4.26 - 5 .52 10*6/?L. The reference range was not used to int erpret this result as normal/abnormal . HGB (test code = 718-7) 9.5 g/dL 12.2-16.4 L HCT (test code = 28.8 % 38.4-49.3 L 4544-3) MCH (test code = 785-6) 24.4 pg 26.1-32.7 L MCV (test code = 787-2) 74.0 fL 81.7-95.6 L MCHC (test code = 33.0 g/dL 31.2-35.0 786-4) PLT (test code = 777-3) See_Comment [Au eGenerationsated message] The system [employer] generated this result transmitted ref erence range: 150 - 32 8 10*3/?L. The reference range was not used to int erpret this result as normal/abnormal . MPV (test code = 12.0 fL 9.8-13.0 49968-7) RDW-CV (test code = 22.0 % 12.1-15.4 H 788-0) RDW-SD (test code = 56.7 fL 38.5-51.6 H 21472-8) NRBC x10^3 (test code = <0.01 See_Comment [Au tomated message] 6546317057) The system [employer] generated this result transmitted ref erence range: 10*3/?L. The reference range was not used to int erpret this result as normal/abnormal . NRBC/100 WBC (test code See_Comment [Au tomated message] = 2968379123) The system [facility] generated this result transmitted ref erence range: 0.0 - 10 .0 /100 WBCs. The reference range was not used to int erpret this result as normal/abnormal . IPF % (test code = 1.6 % 1.2-10.7 Platelet count 9623906614) measured by fluorescence me thod. Lab Interpretation Abnormal (test code = 03844-2) [facility] GLUCOSE (AUTOMATED)2020-10-28 07:38:54 Test Item Value Reference Range Interpretation Comments POCT GLU (test code = 4419131737) 302 mg/dL 70-110 H Lab Interpretation (test code = Abnormal 66475-8) [facility] GLUCOSE (AUTOMATED)2020-10-28 04:16:52 Test Item Value Reference Range Interpretation Comments POCT GLU (test code = 4842395823) 306 mg/dL 70-110 H Lab Interpretation (test code = Abnormal 27107-6) [facility] CULTURE [id number] 03:01:27 Test Item Value Reference Range Interpretation Comments Blood Culture-Aerobic No organisms No growth Previo us (test code = 32867-9) isolated prelim inary verified result was Culture In Progress on 10/23/2020 at 07 15 CDTPrevious preliminary verified result was No growth a t 24 hours on 10/23/2020 at 05 08 CDTPrevious preliminary verified result was No growth a t 48 hours on 10/24/2020 at 22 CDTPrevious preliminary verified result was No growth a t 72 hours on 10/25/2020 at 22 02 CDT Blood No organisms No growth Previous Culture-Anaerobic isolated preliminar y (test code = 36947-8) verifi ed result was Culture In Progress on 10/23/2020 at 07 15 CDTPrevious preliminary verified result was No growth a t 24 hours on 10/23/2020 at 22 CDTPrevious preliminary verified result was No growth a t 48 hours on 10/24/2020 at 22 CDTPrevious preliminary verified result was No growth a t 72 hours on 10/25/2020 at 22 02 CDT Lab Interpretation Normal (test code = 58146-5) [facility] CULTURE [id number] 03:01:27 Test Item Value Reference Range Interpretation Comments Blood Culture-Aerobic No organisms No growth Previo us (test code = 24683-7) isolated prelim inary verified result was Culture In Progress on 10/23/2020 at 07 15 CDTPrevious preliminary verified result was No growth a t 24 hours on 10/23/2020 at 22 01 CDTPrevious preliminary verified result was No growth a t 48 hours on 10/24/2020 at 22 01 CDTPrevious preliminary verified result was No growth a t 72 hours on 10/25/2020 at 22 02 CDT Blood No organisms No growth Previous Culture-Anaerobic isolated preliminar y (test code = 94949-0) verifi ed result was Culture In Progress on 10/23/2020 at 01 01 CDTPrevious preliminary verified result was No growth a t 24 hours on 10/23/2020 at 22 01 CDTPrevious preliminary verified result was No growth a t 48 hours on 10/24/2020 at 22 01 CDTPrevious preliminary verified result was No growth a t 72 hours on 10/25/2020 at 22 02 CDT Lab Interpretation Normal (test code = 82523-5) [id number] 02:04:19 Test Item Value Reference Range Interpretation Comments TROPONIN I (test 0.236 ng/mL See_Comment H [Automated code = 0061989634) message] The system which generated this result transmitted reference range : <=0.034. The reference range was not used to interpret this result as normal/abnormal . JUAN LUIS (test code = Equal or Less than JUAN LUIS) 0.034 ng/ml---Normal ?Note: Cardiac troponin begins to rise 3-4 hours after the onset of ischemia. Repeat in 4-6 hours if the sample was drawn within 3-4 hours of the onset of the symptom and found normal. Between 0.035 and 0.120 ng/mL--- Borderline. Questionable myocardial injury or necrosis ? ?Note: Serial measurement may be necessary to confirm or exclude the diagnosis of myocardial injury or necrosis; Clinical correlation (symptoms, EKGs, imaging studies, and others) required; Repeat in 4-6 hours if clinically indicated. ? Equal or Higher than 0.121 ng/mL---Abnormal. Myocardial Injury or Necrosis Likely ? Biotin has been reported to cause a negative bias, interpret results relative to patient's use of biotin. ? Lab Interpretation Abnormal (test code = 30657-0) [facility] GLUCOSE (AUTOMATED)2020-10-28 01:29:26 Test Item Value Reference Range Interpretation Comments POCT GLU (test code = 4233396734) 262 mg/dL 70-110 H Lab Interpretation (test code = Abnormal 96037-1) [facility] METABOLIC PANEL (NA, K, CL, CO2, GLUCOSE, BUN, CREATININE, CA)2020-10-27 22:22:07 Test Item Value Reference Range Interpretation Comments NA (test code = 151 mmol/L 135-145 H 5075918182) K (test code = 3.2 mmol/L 3.5-5.0 L 1811958855) CL (test code = 124 mmol/L 98-108 H 2945007734) CO2 TOTAL (test code = 20 mmol/L 23-31 L 2195258761) AGAP (test code = 2-16 3315416033) BUN (test code = 49 mg/dL 7-23 H 4086402840) GLUCOSE (test code = 271 mg/dL 70-110 H 7045296793) CREATININE (test code = 1.24 mg/dL 0.60-1.25 0984901701) CALCIUM (test code = 8.7 mg/dL 8.6-10.6 6374705788) eGFR (test code = mL/min/1.73m2 4504258458) JUAN LUIS (test code = JUAN LUIS) Association of Glomerular Filtration Rate (GFR) and Staging of Kidney Disease* + --+ --+ ------+| GFR (mL/min/1.73 m2) ?| With Kidney Damage ?| ?Without Kidney Damage+ --------+ --------+ +| ?>90 ?| ?Stage one ?| ? Normal ?+ ---+ ---+ -------+| ?60-89 ?| ?Stage two ?| ? Decreased GFR ? + --+ --+ ------+| ?30-59 ?| ?Stage three ?| ? Stage three ? + --+ --+ ------+| ?15-29 ?| ?Stage four ? | ? Stage four ?+ ---+ ---+ -------+| ?<15 (or dialysis) ? ?| ?Stage five ? | ? Stage five ?+ ---+ ---+ -------+ *Each stage assumes the associated GFR level has been in effect for at least three months. ?Stages 1 to 5, with or without kidney disease, indicate chronic kidney disease. Notes: Determination of stages one and two (with eGFR >59mL/min/1.73 m2) requires estimation of kidney damage for at least three months as defined by structural or functional abnormalities of the kidney, manifested by either:Pathological abnormalities or Markers of kidney damage (including abnormalities in the composition of the blood or urine or abnormalities in imaging tests). Lab Interpretation Abnormal (test code = 01247-9) [facility] GLUCOSE (AUTOMATED)2020-10-27 21:31:54 Test Item Value Reference Range Interpretation Comments POCT GLU (test code = 7416733320) 308 mg/dL 70-110 H Lab Interpretation (test code = Abnormal 33391-8) [facility] GLUCOSE (AUTOMATED)2020-10-27 19:14:20 Test Item Value Reference Range Interpretation Comments POCT GLU (test code = 7606902202) 281 mg/dL 70-110 H Lab Interpretation (test code = Abnormal 99320-7) [facility] GLUCOSE (AUTOMATED)2020-10-27 16:11:09 Test Item Value Reference Range Interpretation Comments POCT GLU (test code = 2710525174) 278 mg/dL 70-110 H Lab Interpretation (test code = Abnormal 06510-9) [facility] - To confirm Dobhoff / Small- bore (non-styleted) enteral feeding tube placement.2020-10-27 15:24:10FINDINGS / IMPRESSION: The Dobbhoff tube tip and sidehole terminates at the gastric body. Preliminary Report Dictated by Resident: Raza Armendariz MD., have reviewed this study and agree with theabove report.EXAM: XR ABDOMEN 1 VW HISTORY: 65 years-old Male presenting with confirm tube placement COMPARISON: Multiple abdomen radiographs with the most recent for 10/22/2020 TECHNIQUE: Frontal views of the abdomen and pelvis were obtained. [facility], Radiant Results Inft User - 10/27/2020 10:25 AM CDTEXAM: XR ABDOMEN 1 VWHISTORY: 65 years-old Male presenting with confirm tube placement COMPARISON: Multiple abdomen radiographs with the most recent for 10/22/2020TECHNIQUE: Frontal viewsof the abdomen and pelvis were obtained.IMPRESSIONFINDINGS / IMPRESSION:The Dobbhoff tube tip and sidehole terminates at the gastric body.Preliminary Report Dictated by Resident: Raza Stovall MD., have reviewed this study and agree with theabove report.[facility] Abdominal 1 View - To confirm Dobhoff / Small-bore (non-styleted) enteral feeding tube placement.2020-10-27 15:24:10FINDINGS / IMPRESSION: The Dobbhoff tube tip and sidehole terminates at the gastric body. Preliminary Report Dictated by Resident: Raza Armendariz MD., have reviewed this study and agree with theabove report.EXAM: XR ABDOMEN 1 VW HISTORY: 65 years-old Male presenting with confirm tube placement COMPARISON: Multiple abdomen radiographs with the most recent for 10/22/2020 TECHNIQUE: Frontal views of the abdomen and pelvis were obtained. [facility], Radiant Results Inft User - 10/27/2020 10:25 AM CDTEXAM: XR ABDOMEN 1 VWHISTORY: 65 years-old Male presenting with confirm tube placement COMPARISON: Multiple abdomen radiographs with the most recent for 10/22/2020TECHNIQUE: Frontal viewsof the abdomen and pelvis were obtained.IMPRESSIONFINDINGS / IMPRESSION:The Dobbhoff tube tip and sidehole terminates at the gastric body.Preliminary Report Dictated by Resident: Raza Stovall MD., have reviewed this study and agree with theabove report.[facility] To confirm Dobhoff / Small-bore (non-styleted) enteral feeding tube placement. 2020-10-27 15:24:10FINDINGS / IMPRESSION: The Dobbhoff tube tip and sidehole terminates at the gastric body. Preliminary Report Dictated by Resident: Raza Armendariz MD., have reviewed this study and agree with theabove report.EXAM: XR ABDOMEN 1 VW HISTORY: 65 years-old Male presenting with confirm tube placement COMPARISON: Multiple abdomen radiographs with the most recent for 10/22/2020 TECHNIQUE: Frontal views of the abdomen and pelvis were obtained. [facility], Radiant Results Inft User - 10/27/2020 10:25 AM CDTEXAM: XR ABDOMEN 1 VWHISTORY: 65 years-old Male presenting with confirm tube placement COMPARISON: Multiple abdomen radiographs with the most recent for 10/22/2020TECHNIQUE: Frontal viewsof the abdomen and pelvis were obtained.IMPRESSIONFINDINGS / IMPRESSION:The Dobbhoff tube tip and sidehole terminates at the gastric body.Preliminary Report Dictated by Resident: Emelia Ly, Raza Sheldon MD., have reviewed this study and agree with theabove report.[facility] WITH [id number] 14:56:09 Test Item Value Reference Range Interpretation Comments WBC (test code = See_Comment H [Automated 6690-2) message] The sy stem which generated this result transmitted reference range : 4.20 - 10.70 10*3/?L. The reference range was not used to interpret this result as normal/abnormal . RBC (test code = See_Comment L [Automated 789-8) message] The sy stem which generated this result transmitted reference range : 4.26 - 5.52 10*6/?L. The reference range was not used to interpret this result as normal/abnormal . HGB (test code = 8.3 g/dL 12.2-16.4 L 718-7) HCT (test code = 25.9 % 38.4-49.3 L 4544-3) MCV (test code = 76.2 fL 81.7-95.6 L 787-2) MCH (test code = 24.4 pg 26.1-32.7 L 785-6) MCHC (test code = 32.0 g/dL 31.2-35.0 786-4) RDW-SD (test code = 59.0 fL 38.5-51.6 H 94683-1) RDW-CV (test code = 21.9 % 12.1-15.4 H 788-0) PLT (test code = See_Comment [Automated 777-3) message] The sy stem which generated this result transmitted reference range : 150 - 328 10*3/ ?L. The reference r christine was not used to interpret this result as normal/abnormal . MPV (test code = 11.7 fL 9.8-13.0 88750-8) IPF % (test code = 2.6 % 1.2-10.7 Platelet count 1434832430) measured by fluorescence method. NRBC/100 WBC (test See_Comment [Automat ed code = 1654438256) message] The system which generated this result transmitted reference range : 0.0 - 10.0 /100 WBCs. The refer ence range was not u sed to interpret th is result as normal/abnormal . NRBC x10^3 (test code <0.01 See_Comment [Auto mated = 2588806464) message] The s ystem which generated this result transmitted reference range : 10*3/?L. The reference range was not used to interpret this result as normal/abnormal . GRAN MAT (NEUT) % 73.4 % (test code = 770-8) IMM GRAN % (test code 4.90 % = 8831904571) LYMPH % (test code = 6.7 % 736-9) MONO % (test code = 14.3 % 5905-5) EOS % (test code = 0.4 % 713-8) BASO % (test code = 0.3 % 706-2) GRAN MAT x10^3(ANC) 8.45 10*3/uL 1.99-6.95 H (test code = 2460991276) IMM GRAN x10^3 (test 0.57 10*3/uL 0.00-0.06 H code = 9032377504) LYMPH x10^3 (test code 0.77 10*3/uL 1.09-3.23 L = 731-0) MONO x10^3 (test code 1.65 10*3/uL 0.36-1.02 H = 742-7) EOS x10^3 (test code = 0.05 10*3/uL 0.06-0.53 L 711-2) BASO x10^3 (test code 0.04 10*3/uL 0.01-0.09 = 704-7) YVES CELLS (test code 2+ See_Comment A [Auto mated = 5639-4) message] The sy stem which generated this result transmitted reference range : (none). The reference range was not used to interpret this result as normal/abnormal . SCHISTOCYTES (test 1+ A code = 800-3) Lab Interpretation Abnormal (test code = 36274-4) [facility] 12:58:08 Test Item Value Reference Range Interpretation Comments POCT GLU (test code = 6209793637) 381 mg/dL 70-110 H Lab Interpretation (test code = Abnormal 79941-1) [facility] [id number] 11:41:52 Test Item Value Reference Range Interpretation Comments TROPONIN I (test 0.229 ng/mL See_Comment H [Automated code = 1392296890) message] The system which generated this result transmitted reference range : <=0.034. The reference range was not used to interpret this result as normal/abnormal . JUAN LUIS (test code = Equal or Less than JUAN LUIS) 0.034 ng/ml---Normal ?Note: Cardiac troponin begins to rise 3-4 hours after the onset of ischemia. Repeat in 4-6 hours if the sample was drawn within 3-4 hours of the onset of the symptom and found normal. Between 0.035 and 0.120 ng/mL--- Borderline. Questionable myocardial injury or necrosis ? ?Note: Serial measurement may be necessary to confirm or exclude the diagnosis of myocardial injury or necrosis; Clinical correlation (symptoms, EKGs, imaging studies, and others) required; Repeat in 4-6 hours if clinically indicated. ? Equal or Higher than 0.121 ng/mL---Abnormal. Myocardial Injury or Necrosis Likely ? Biotin has been reported to cause a negative bias, interpret results relative to patient's use of biotin. ? Lab Interpretation Abnormal (test code = 18617-9) [facility] (NA, K, CL, CO2, GLUCOSE, BUN, CREATININE, CA)2020-10-27 11:41:31 Test Item Value Reference Range Interpretation Comments NA (test code = 149 mmol/L 135-145 H 7586148782) K (test code = 4.2 mmol/L 3.5-5.0 Slight 0535498153) hemolysis CL (test code = 122 mmol/L 98-108 H 1697347288) CO2 TOTAL (test code 17 mmol/L 23-31 L = 7000421876) AGAP (test code = 2-16 4864889429) BUN (test code = 52 mg/dL 7-23 H Slight 4060017980) hemolysis GLUCOSE (test code = 346 mg/dL 70-110 H 5979824680) CREATININE (test code 1.21 mg/dL 0.60-1.25 = 0260263179) CALCIUM (test code = 8.5 mg/dL 8.6-10.6 L 0064507896) eGFR (test code = mL/min/1.73m2 7772448978) JUAN LUIS (test code = JUAN LUIS) Association of Glomerular Filtration Rate (GFR) and Staging of Kidney Disease* + -----+ --------+ +| GFR (mL/min/1.73 m2) ?| With Kidney Damage ?| ?Without Kidney Damage+ +------- +---- --+| ?>90 ?| ?Stage one ?| ? Normal ?+ ------+ ---------+--------- +| ?60-89 ?| ?Stage two ?| ? Decreased GFR ? + -----+ --------+ +| ?30-59 ?| ?Stage three ?| ? Stage three ? + -----+ --------+ +| ?15-29 ?| ?Stage four ? | ? Stage four ?+ ------+ ---------+--------- +| ?<15 (or dialysis) ? ?| ?Stage five ? | ? Stage five ?+ ------+ ---------+--------- + *Each stage assumes the associated GFR level has been in effect for at least three months. ?Stages 1 to 5, with or without kidney disease, indicate chronic kidney disease. Notes: Determination of stages one and two (with eGFR >59mL/min/1.73 m2) requires estimation of kidney damage for at least three months as defined by structural or functional abnormalities of the kidney, manifested by either:Pathological abnormalities or Markers of kidney damage (including abnormalities in the composition of the blood or urine or abnormalities in imaging tests). Lab Interpretation Abnormal (test code = 94949-9) [facility] [id number] 05:53:41 Test Item Value Reference Range Interpretation Comments TROPONIN I (test 0.163 ng/mL See_Comment H [Automated code = 7186762904) message] The system which generated this result transmitted reference range : <=0.034. The reference range was not used to interpret this result as normal/abnormal . JUAN LUIS (test code = Equal or Less than JUAN LUIS) 0.034 ng/ml---Normal ?Note: Cardiac troponin begins to rise 3-4 hours after the onset of ischemia. Repeat in 4-6 hours if the sample was drawn within 3-4 hours of the onset of the symptom and found normal. Between 0.035 and 0.120 ng/mL--- Borderline. Questionable myocardial injury or necrosis ? ?Note: Serial measurement may be necessary to confirm or exclude the diagnosis of myocardial injury or necrosis; Clinical correlation (symptoms, EKGs, imaging studies, and others) required; Repeat in 4-6 hours if clinically indicated. ? Equal or Higher than 0.121 ng/mL---Abnormal. Myocardial Injury or Necrosis Likely ? Biotin has been reported to cause a negative bias, interpret results relative to patient's use of biotin. ? Lab Interpretation Abnormal (test code = 94864-8) [facility] (NA, K, CL, CO2, GLUCOSE, BUN, CREATININE, CA)2020-10-27 05:39:56 Test Item Value Reference Range Interpretation Comments NA (test code = 152 mmol/L 135-145 H 2765962407) K (test code = 3.9 mmol/L 3.5-5.0 6372117696) CL (test code = 123 mmol/L 98-108 H 8830432743) CO2 TOTAL (test code = 13 mmol/L 23-31 L 1010839054) AGAP (test code = 2-16 8794311616) BUN (test code = 52 mg/dL 7-23 H 1351949273) GLUCOSE (test code = 284 mg/dL 70-110 H 0501166750) CREATININE (test code = 1.31 mg/dL 0.60-1.25 H 7550890885) CALCIUM (test code = 8.6 mg/dL 8.6-10.6 3545036338) eGFR (test code = mL/min/1.73m2 2225735297) JUAN LUIS (test code = JUAN LUIS) Association of Glomerular Filtration Rate (GFR) and Staging of Kidney Disease* + --+ --+ ------+| GFR (mL/min/1.73 m2) ?| With Kidney Damage ?| ?Without Kidney Damage+ --------+ --------+ +| ?>90 ?| ?Stage one ?| ? Normal ?+ ---+ ---+ -------+| ?60-89 ?| ?Stage two ?| ? Decreased GFR ? + --+ --+ ------+| ?30-59 ?| ?Stage three ?| ? Stage three ? + --+ --+ ------+| ?15-29 ?| ?Stage four ? | ? Stage four ?+ ---+ ---+ -------+| ?<15 (or dialysis) ? ?| ?Stage five ? | ? Stage five ?+ ---+ ---+ -------+ *Each stage assumes the associated GFR level has been in effect for at least three months. ?Stages 1 to 5, with or without kidney disease, indicate chronic kidney disease. Notes: Determination of stages one and two (with eGFR >59mL/min/1.73 m2) requires estimation of kidney damage for at least three months as defined by structural or functional abnormalities of the kidney, manifested by either:Pathological abnormalities or Markers of kidney damage (including abnormalities in the composition of the blood or urine or abnormalities in imaging tests). Lab Interpretation Abnormal (test code = 38544-1) [facility]2020-10-27 03:12:41 Test Item Value Reference Range Interpretation Comments POCT GLU (test code = 6715525222) 253 mg/dL 70-110 H Lab Interpretation (test code = Abnormal 80663-2) [facility] (NA, K, CL, CO2, GLUCOSE, BUN, CREATININE, CA)2020-10-26 23:37:44 Test Item Value Reference Range Interpretation Comments NA (test code = 152 mmol/L 135-145 H 0752582819) K (test code = 4.1 mmol/L 3.5-5.0 0027715369) CL (test code = 123 mmol/L 98-108 H 8854215458) CO2 TOTAL (test code = 11 mmol/L 23-31 L 2344754344) AGAP (test code = 2-16 H 2900241094) BUN (test code = 54 mg/dL 7-23 H 6622287574) GLUCOSE (test code = 193 mg/dL 70-110 H 7712443691) CREATININE (test code = 1.41 mg/dL 0.60-1.25 H 8379378772) CALCIUM (test code = 9.1 mg/dL 8.6-10.6 5835210244) eGFR (test code = mL/min/1.73m2 2119839178) JUAN LUIS (test code = JUAN LUIS) Association of Glomerular Filtration Rate (GFR) and Staging of Kidney Disease* + --+ --+ ------+| GFR (mL/min/1.73 m2) ?| With Kidney Damage ?| ?Without Kidney Damage+ --------+ --------+ +| ?>90 ?| ?Stage one ?| ? Normal ?+ ---+ ---+ -------+| ?60-89 ?| ?Stage two ?| ? Decreased GFR ? + --+ --+ ------+| ?30-59 ?| ?Stage three ?| ? Stage three ? + --+ --+ ------+| ?15-29 ?| ?Stage four ? | ? Stage four ?+ ---+ ---+ -------+| ?<15 (or dialysis) ? ?| ?Stage five ? | ? Stage five ?+ ---+ ---+ -------+ *Each stage assumes the associated GFR level has been in effect for at least three months. ?Stages 1 to 5, with or without kidney disease, indicate chronic kidney disease. Notes: Determination of stages one and two (with eGFR >59mL/min/1.73 m2) requires estimation of kidney damage for at least three months as defined by structural or functional abnormalities of the kidney, manifested by either:Pathological abnormalities or Markers of kidney damage (including abnormalities in the composition of the blood or urine or abnormalities in imaging tests). Lab Interpretation Abnormal (test code = 28354-7) [facility] GLUCOSE (AUTOMATED)2020-10-26 21:41:08 Test Item Value Reference Range Interpretation Comments POCT GLU (test code = 1303914537) 204 mg/dL 70-110 H Lab Interpretation (test code = Abnormal 50386-1) [facility] [id number] 17:26:11 1. ?Multifocal mixed attenuation opacities and diffuse centrilobulargroundglass nodules present throughout all lobes of the lung with relativesparing of the right upper lobe is concerning for atypicalpneumonia. Givensomewhat dependent predilection, this could be due to aspiration. Confluentconsolidation and atelectasis present in the left lower lobe. Small leftpleural effusion. 2. ?Mostly intramuscular hematoma of the abductor compartment of the rightthigh, likely due to vascular injury related tothe femoral central venouscatheter placement. Active hemorrhage cannot be evaluated in the absence ofintravenous contrast. 3. ?Diffuse bony demineralization with compression deformities of T12 andL3 vertebral bodies. Appearance suggests acute-subacute on chronicfractures. Findings of hematoma discussed with Dr. Austin at 1225 on 10/26/2020. Preliminary Report Dictated by Resident: Kati Garcia MD., have reviewed this study and agree with the abovereport.EXAM: CT CHEST, ABDOMEN AND PELVIS WITHOUT CONTRAST, CONSULTATION OUTSIDE HISTORY: 65 years -old Male with uti - shock COMPARISON:None, correlation with CT abdomen pelvis with and withoutcontrast from 09/20/2017 TECHNIQUE: CT examination acquisition dated 10/22/2020 from [facility], labeled with the patients name, was submitted forreview. Contiguous axial imaging from the level of the lung apices to themid thighs was performed without contrast. Coronal and axialreconstructions were obtained. Images were loaded to the PACS archive andreviewed on a PACS workstation. CHEST FINDINGS: Devices: An endotracheal tubeis seen with tip extending approximately 5.6cm superior to the amol. A NG tube courses through theesophagus with tipending in the gastric fundus. LUNGS AND PLEURA: Multifocal mixed attenuation opacities and diffusecentrilobular groundglass nodules present throughout all lobes of the lungwith relative sparing of the right upper lobe. Confluent consolidation andatelectasis present in the left lowerlobe. Small left pleural effusion. LYMPH NODES: Scattered small lymph nodes in both sides of the mediastinumand hilar regions. No evidence of intrathoracic lymphadenopathy. MEDIASTINUM AND LOWER NECK: No central airway lesions are detected. Theesophagus is within normal limits. The included thyroid gland appearsnormal. HEART AND GREAT VESSELS: The heart is normal in size. No pericardialabnormalities are identified. The thoracic aorta is normal in caliber.Significant calcified atherosclerotic plaque seen throughout the thoracicaorta and its branches. The pulmonary trunk is normal in caliber. OSSEOUSSTRUCTURES AND SOFT TISSUES: Hypoplastic 12th ribs. Compressiondeformity of T12 results in approximately 50% height loss; sclerosis withinthe vertebral body suggests chronic nature, however there are so melucencies scattered within the vertebral body which could representacute- subacute fracture lines. Additionally, there is mild retropulsioninto the spinal canal of up to 0.4 cm; this causes minimal spinal canalnarrowing. Cachectic body habitus with diffuse body wall edema. ABDOMEN AND PELVIS FINDINGS: Limited evaluation of solid organs in the absence of IV contrast. LIVER: No focal hepatic lesions.?Normal contour. GALLBLADDER AND BILIARY TREE: No biliary ductal dilation. ?No gallbladderwall thickening. SPLEEN: No splenomegaly. PANCREAS: No ductal dilation or masses. ADRENAL GLANDS: No adrenal nodules. KIDNEYS: Mild perinephric fat stranding seen bilaterally. Nohydronephrosis, or nephrolithiasis. PERITONEUM AND RETROPERITONEUM: No extraluminal free air. Small volume freefluid seen in the pelvis. LYMPH NODES: No lymphadenopathy. GI TRACT: No dilation or wall thickening. Inspissated stool fills therectum and is seen throughout the entire colon. PELVIS/BLADDER: Limited evaluation due to streak ar tifact related to theleft total hip replacement hardware. Bladder is decompressed about a Foleycatheter. VESSELS: Severe calcified atherosclerotic plaque affects the aortoiliacvessels and their branches. A right femoral venous catheter tip extendsinto the right mid pelvis. Posteromedial to the catheter within theadductor compartment of the thigh, there is diffuse thickening of themuscles with mild heterogeneous density which is probably due to hematoma.Whether there is active bleeding is not able dwight determined in thisnoncontrast exam. BONES AND SOFT TISSUES: Compression deformity of L3 vertebralbody resultsin approximately 30% height loss. Similar to the T12 fracture, there areareas of sclerosis and lucency which may represent fractures of differentages. Postsurgical changes of a left total hip arthroplasty. [facility], Radiant Results Inft User - 10/26/2020 12:27 PM CDTEXAM: CT CHEST, ABDOMEN AND PELVIS WITHOUT CONTRAST, CONSULTATION OUTSIDEHISTORY: 65 years -old Male with uti - shock COMPARISON: None, correlation with CT abdomen pelvis with and withoutcontrast from 09/20/2017TECHNIQUE: CT examination acquisition dated 10/22/2020 from [facility], labeled with the patients name, was submitted forreview. Contiguous axial imaging from the level of the lung apices to themid thighs was performed without contrast. Coronal and axialreconstructions were obtained. Images were loaded to the PACS archive andreviewed on a PACS workstation. CHEST FINDINGS:Devices: An endotracheal tube is seen with tip extending approximately 5.6cm superior to the amol. A NG tube courses through the esophagus with tipending in the gastric fundus. LUNGS AND PLEURA: Multifocal mixed attenuation opacities and diffusecentrilobular groundglass nodules present throughout all lobes of the lungwith relativesparing of the right upper lobe. Confluent consolidation andatelectasis present in the left lower lobe. Small left pleural effusion.LYMPH NODES: Scattered small lymph nodes in both sides of the mediastinumand hilar regions. No evidence of intrathoracic lymphadenopathy.MEDIASTINUM AND LOWER NECK: No central airway lesions are detected. Theesophagus is within normal limits. The included thyroid gland appearsnormal.HEART AND GREAT VESSELS: The heart is normal in size. No pericardialabnormalities are identified. The thoracic aorta is normal in caliber.Significant calcified atherosclerotic plaque seen throughout the thoracicaorta and its branches. The pulmonary trunk is normal in caliber.OSSEOUS STRUCTURES AND SOFT TISSUES: Hypoplastic 12th ribs. Compressiondeformity of T12 results in approximately 50% height loss; sclerosis withinthe vertebral body suggests chronic nature, however there are somelucencies scattered within the vertebral body which could representacute-subacute fracture lines. Additionally, there is mild retropulsioninto the spinal canal of up to 0.4 cm; this causes minimal spinal canalnarrowing. Cachectic body habitus with diffuse body wall edema.ABDOMEN AND PELVIS FINDINGS:Limitedevaluation of solid organs in the absence of IV contrast. LIVER: No focal hepatic lesions. Normal co ntour.GALLBLADDER AND BILIARY TREE: No biliary ductal dilation. No gallbladderwall thickening.SPLEEN: No splenomegaly.PANCREAS: No ductal dilation or masses.ADRENAL GLANDS: No adrenal nodules.KIDNEYS:Mild perinephric fat stranding seen bilaterally. Nohydronephrosis, or nephrolithiasis.PERITONEUM AND RETROPERITONEUM: No extraluminal free air. Small volume freefluid seen in the pelvis.LYMPH NODES: Nolymphadenopathy.GI TRACT: No dilation or wall thickening. Inspissated stool fills therectum and is seen throughout the entire colon.PELVIS/BLADDER: Limited evaluation due to streak artifact related to t heleft total hip replacement hardware. Bladder is decompressed about a Foleycatheter.VESSELS: Severecalcified atherosclerotic plaque affects the aortoiliacvessels and their branches. A right femoral venous catheter tip extendsinto the right mid pelvis. Posteromedial to the catheter within theadductorcompartment of the thigh, there is diffuse thickening of themuscles with mild heterogeneous density which is probably due to hematoma.Whether there is active bleeding is not able to be determined in thisnoncontrast exam.BONES AND SOFT TISSUES: Compression deformity of L3 vertebral body resultsin approx imately 30% height loss. Similar to the T12 fracture, there areareas of sclerosis and lucency which may represent fractures of differentages. Postsurgical changes of a left total hip arthroplasty.IMPRESSION1. Multifocal mixed attenuation opacities and diffuse centrilobulargroundglass nodules present throughout all lobes of the lung with relativesparing of the right upper lobe is concerning for atypical pneumonia. Givensomewhat dependent predilection, this could be due to aspiration. Confluentconsolidation and atelectasis present in the left lower lobe. Small leftpleural effusion.2. Mostly intramuscular hematoma of the abductor compartment of the rightthigh, likely due to vascular injury related to the femoral central venouscatheter placement. Active hemorrhage cannot be evaluated in the absenceofintravenous contrast.3. Diffuse bony demineralization with compression deformities of T12 andL3 vertebral bodies. Appearance suggests acute-subacute on chronicfractures.Findings of hematoma discussed with Dr. Austin at 1225 on 10/26/2020. Preliminary Report Dictated by Resident: Josiah Fitzgerald MD., have reviewed this study and agree with the abovereport.[facility] [id number] 17:26:11 1. ?Multifocal mixed attenuation opacities and diffuse centrilobulargroundglass nodules present throughout all lobes of the lung with relativesparing of the right upper lobe is concerning for atypical pneumonia. Givensomewhat dependent predilection, this could be due to aspiration. Confluentconsolidation and atelectasis present in the left lower lobe. Small leftpleural effusion. 2. ?Mostly intramuscular hematoma of the abductor compartment of the rightthigh, likely due to vascular injury related to the femoral central venouscatheter placement. Active hemorrhage cannot be evaluated in the absence ofintravenous contrast. 3. ?Diffuse bony demineralization with compression deformities of T12 andL3 vertebral bodies. Appearance suggests acute-subacute on chronicfractures. Findings of hematoma discussed with Dr. Austin at 1225 on 10/26/2020. Preliminary Report Dictated by Resident: Kati Garcia MD., have reviewed this study and agree with the abovereport.EXAM: CT CHEST, ABDOMEN AND PELVIS WITHOUT CONTRAST, CONSULTATION OUTSIDE HISTORY: 65 years -old Male with uti - shock COMPARISON: None, correlation with CT abdomen pelvis with and withoutcontrast from 09/20/2017 TECHNIQUE: CT examination acquisition dated 10/22/2020 from [facility], labeled with the patients name, was submitted forreview. Contiguous axial imaging from the level of the lung apices to themid thighs was performed without contrast. Coronal and axialreconstructions were obtained. Images were loaded to the PACS archive andreviewed on a PACS workstation. CHEST FINDINGS: Devices: An endotracheal tubeis seen with tip extending approximately 5.6cm superior to the amol. A NG tube courses through theesophagus with tipending in the gastric fundus. LUNGS AND PLEURA: Multifocal mixed attenuation opacities and diffusecentrilobular groundglass nodules present throughout all lobes of the lungwith relative sparing of the right upper lobe. Confluent consolidation andatelectasis present in the left lowerlobe. Small left pleural effusion. LYMPH NODES: Scattered small lymph nodes in both sides of the mediastinumand hilar regions. No evidence of intrathoracic lymphadenopathy. MEDIASTINUM AND LOWER NECK: No central airway lesions are detected. Theesophagus is within normal limits. The included thyroid gland appearsnormal. HEART AND GREAT VESSELS: The heart is normal in size. No pericardialabnormalities are identified. The thoracic aorta is normal in caliber.Significant calcified atherosclerotic plaque seen throughout the thoracicaorta and its branches. The pulmonary trunk is normal in caliber. OSSEOUSSTRUCTURES AND SOFT TISSUES: Hypoplastic 12th ribs. Compressiondeformity of T12 results in approximately 50% height loss; sclerosis withinthe vertebral body suggests chronic nature, however there are so melucencies scattered within the vertebral body which could representacute- subacute fracture lines. Additionally, there is mild retropulsioninto the spinal canal of up to 0.4 cm; this causes minimal spinal canalnarrowing. Cachectic body habitus with diffuse body wall edema. ABDOMEN AND PELVIS FINDINGS: Limited evaluation of solid organs in the absence of IV contrast. LIVER: No focal hepatic lesions.?Normal contour. GALLBLADDER AND BILIARY TREE: No biliary ductal dilation. ?No gallbladderwall thickening. SPLEEN: No splenomegaly. PANCREAS: No ductal dilation or masses. ADRENAL GLANDS: No adrenal nodules. KIDNEYS: Mild perinephric fat stranding seen bilaterally. Nohydronephrosis, or nephrolithiasis. PERITONEUM AND RETROPERITONEUM: No extraluminal free air. Small volume freefluid seen in the pelvis. LYMPH NODES: No lymphadenopathy. GI TRACT: No dilation or wall thickening. Inspissated stool fills therectum and is seen throughout the entire colon. PELVIS/BLADDER: Limited evaluation due to streak ar tifact related to theleft total hip replacement hardware. Bladder is decompressed about a Foleycatheter. VESSELS: Severe calcified atherosclerotic plaque affects the aortoiliacvessels and their branches. A right femoral venous catheter tip extendsinto the right mid pelvis. Posteromedial to the catheter within theadductor compartment of the thigh, there is diffuse thickening of themuscles with mild heterogeneous density which is probably due to hematoma.Whether there is active bleeding is not able dwight determined in thisnoncontrast exam. BONES AND SOFT TISSUES: Compression deformity of L3 vertebralbody resultsin approximately 30% height loss. Similar to the T12 fracture, there areareas of sclerosis and lucency which may represent fractures of differentages. Postsurgical changes of a left total hip arthroplasty. [facility], Radiant Results Inft User - 11/08/2020 9:47 AM CDTEXAM: CT CHEST, ABDOMEN AND PELVIS WITHOUT CONTRAST, CONSULTATION OUTSIDEHISTORY: 65 years -old Male with uti - shock COMPARISON: None, correlation with CT abdomen pelvis with and withoutcontrast from 09/20/2017TECHNIQUE: CT examination acquisition dated 10/22/2020 from [facility], labeled with the patients name, was submitted forreview. Contiguous axial imaging from the level of the lung apices to themid thighs was performed without contrast. Coronal and axialreconstructions were obtained. Images were loaded to the PACS archive andreviewed on a PACS workstation. CHEST FINDINGS:Devices: An endotracheal tube is seen with tip extending approximately 5.6cm superior to the amol. A NG tube courses through the esophagus with tipending in the gastric fundus. LUNGS AND PLEURA: Multifocal mixed attenuation opacities and diffusecentrilobular groundglass nodules present throughout all lobes of the lungwith relativesparing of the right upper lobe. Confluent consolidation andatelectasis present in the left lower lobe. Small left pleural effusion.LYMPH NODES: Scattered small lymph nodes in both sides of the mediastinumand hilar regions. No evidence of intrathoracic lymphadenopathy.MEDIASTINUM AND LOWER NECK: No central airway lesions are detected. Theesophagus is within normal limits. The included thyroid gland appearsnormal.HEART AND GREAT VESSELS: The heart is normal in size. No pericardialabnormalities are identified. The thoracic aorta is normal in caliber.Significant calcified atherosclerotic plaque seen throughout the thoracicaorta and its branches. The pulmonary trunk is normal in caliber.OSSEOUS STRUCTURES AND SOFT TISSUES: Hypoplastic 12th ribs. Compressiondeformity of T12 results in approximately 50% height loss; sclerosis withinthe vertebral body suggests chronic nature, however there are somelucencies scattered within the vertebral body which could representacute-subacute fracture lines. Additionally, there is mild retropulsioninto the spinal canal of up to 0.4 cm; this causes minimal spinal canalnarrowing. Cachectic body habitus with diffuse body wall edema.ABDOMEN AND PELVIS FINDINGS:Limitedevaluation of solid organs in the absence of IV contrast. LIVER: No focal hepatic lesions. Normal co ntour.GALLBLADDER AND BILIARY TREE: No biliary ductal dilation. No gallbladderwall thickening.SPLEEN: No splenomegaly.PANCREAS: No ductal dilation or masses.ADRENAL GLANDS: No adrenal nodules.KIDNEYS:Mild perinephric fat stranding seen bilaterally. Nohydronephrosis, or nephrolithiasis.PERITONEUM AND RETROPERITONEUM: No extraluminal free air. Small volume freefluid seen in the pelvis.LYMPH NODES: Nolymphadenopathy.GI TRACT: No dilation or wall thickening. Inspissated stool fills therectum and is seen throughout the entire colon.PELVIS/BLADDER: Limited evaluation due to streak artifact related to t heleft total hip replacement hardware. Bladder is decompressed about a Foleycatheter.VESSELS: Severecalcified atherosclerotic plaque affects the aortoiliacvessels and their branches. A right femoral venous catheter tip extendsinto the right mid pelvis. Posteromedial to the catheter within theadductorcompartment of the thigh, there is diffuse thickening of themuscles with mild heterogeneous density which is probably due to hematoma.Whether there is active bleeding is not able to be determined in thisnoncontrast exam.BONES AND SOFT TISSUES: Compression deformity of L3 vertebral body resultsin approx imately 30% height loss. Similar to the T12 fracture, there areareas of sclerosis and lucency which may represent fractures of differentages. Postsurgical changes of a left total hip arthroplasty.IMPRESSION1. Multifocal mixed attenuation opacities and diffuse centrilobulargroundglass nodules present throughout all lobes of the lung with relativesparing of the right upper lobe is concerning for atypical pneumonia. Givensomewhat dependent predilection, this could be due to aspiration. Confluentconsolidation and atelectasis present in the left lower lobe. Small leftpleural effusion.2. Mostly intramuscular hematoma of the abductor compartment of the rightthigh, likely due to vascular injury related to the femoral central venouscatheter placement. Active hemorrhage cannot be evaluated in the absenceofintravenous contrast.3. Diffuse bony demineralization with compression deformities of T12 andL3 vertebral bodies. Appearance suggests acute-subacute on chronicfractures.Findings of hematoma discussed with Dr. Austin at 1225 on 10/26/2020. Preliminary Report Dictated by Resident: Josiah Fitzgerald MD., have reviewed this study and agree with the abovereport.[facility] [id number] 17:26:11 1. ?Multifocal mixed attenuation opacities and diffuse centrilobulargroundglass nodules present throughout all lobes of the lung with relativesparing of the right upper lobe is concerning for atypical pneumonia. Givensomewhat dependent predilection, this could be due to aspiration. Confluentconsolidation and atelectasis present in the left lower lobe. Small leftpleural effusion. 2. ?Mostly intramuscular hematoma of the abductor compartment of the rightthigh, likely due to vascular injury related to the femoral central venouscatheter placement. Active hemorrhage cannot be evaluated in the absence ofintravenous contrast. 3. ?Diffuse bony demineralization with compression deformities of T12 andL3 vertebral bodies. Appearance suggests acute-subacute on chronicfractures. Findings of hematoma discussed with Dr. Austin at 1225 on 10/26/2020. Preliminary Report Dictated by Resident: Kati Garcia MD., have reviewed this study and agree with the abovereport.EXAM: CT CHEST, ABDOMEN AND PELVIS WITHOUT CONTRAST, CONSULTATION OUTSIDE HISTORY: 65 years -old Male with uti - shock COMPARISON: None, correlation with CT abdomen pelvis with and withoutcontrast from 09/20/2017 TECHNIQUE: CT examination acquisition dated 10/22/2020 from [facility], labeled with the patients name, was submitted forreview. Contiguous axial imaging from the level of the lung apices to themid thighs was performed without contrast. Coronal and axialreconstructions were obtained. Images were loaded to the PACS archive andreviewed on a PACS workstation. CHEST FINDINGS: Devices: An endotracheal tubeis seen with tip extending approximately 5.6cm superior to the amol. A NG tube courses through theesophagus with tipending in the gastric fundus. LUNGS AND PLEURA: Multifocal mixed attenuation opacities and diffusecentrilobular groundglass nodules present throughout all lobes of the lungwith relative sparing of the right upper lobe. Confluent consolidation andatelectasis present in the left lowerlobe. Small left pleural effusion. LYMPH NODES: Scattered small lymph nodes in both sides of the mediastinumand hilar regions. No evidence of intrathoracic lymphadenopathy. MEDIASTINUM AND LOWER NECK: No central airway lesions are detected. Theesophagus is within normal limits. The included thyroid gland appearsnormal. HEART AND GREAT VESSELS: The heart is normal in size. No pericardialabnormalities are identified. The thoracic aorta is normal in caliber.Significant calcified atherosclerotic plaque seen throughout the thoracicaorta and its branches. The pulmonary trunk is normal in caliber. OSSEOUSSTRUCTURES AND SOFT TISSUES: Hypoplastic 12th ribs. Compressiondeformity of T12 results in approximately 50% height loss; sclerosis withinthe vertebral body suggests chronic nature, however there are so melucencies scattered within the vertebral body which could representacute- subacute fracture lines. Additionally, there is mild retropulsioninto the spinal canal of up to 0.4 cm; this causes minimal spinal canalnarrowing. Cachectic body habitus with diffuse body wall edema. ABDOMEN AND PELVIS FINDINGS: Limited evaluation of solid organs in the absence of IV contrast. LIVER: No focal hepatic lesions.?Normal contour. GALLBLADDER AND BILIARY TREE: No biliary ductal dilation. ?No gallbladderwall thickening. SPLEEN: No splenomegaly. PANCREAS: No ductal dilation or masses. ADRENAL GLANDS: No adrenal nodules. KIDNEYS: Mild perinephric fat stranding seen bilaterally. Nohydronephrosis, or nephrolithiasis. PERITONEUM AND RETROPERITONEUM: No extraluminal free air. Small volume freefluid seen in the pelvis. LYMPH NODES: No lymphadenopathy. GI TRACT: No dilation or wall thickening. Inspissated stool fills therectum and is seen throughout the entire colon. PELVIS/BLADDER: Limited evaluation due to streak ar tifact related to theleft total hip replacement hardware. Bladder is decompressed about a Foleycatheter. VESSELS: Severe calcified atherosclerotic plaque affects the aortoiliacvessels and their branches. A right femoral venous catheter tip extendsinto the right mid pelvis. Posteromedial to the catheter within theadductor compartment of the thigh, there is diffuse thickening of themuscles with mild heterogeneous density which is probably due to hematoma.Whether there is active bleeding is not able dwight determined in thisnoncontrast exam. BONES AND SOFT TISSUES: Compression deformity of L3 vertebralbody resultsin approximately 30% height loss. Similar to the T12 fracture, there areareas of sclerosis and lucency which may represent fractures of differentages. Postsurgical changes of a left total hip arthroplasty. [facility], Radiant Results Inft User - 11/08/2020 9:47 AM CDTEXAM: CT CHEST, ABDOMEN AND PELVIS WITHOUT CONTRAST, CONSULTATION OUTSIDEHISTORY: 65 years -old Male with uti - shock COMPARISON: None, correlation with CT abdomen pelvis with and withoutcontrast from 09/20/2017TECHNIQUE: CT examination acquisition dated 10/22/2020 from [facility], labeled with the patients name, was submitted forreview. Contiguous axial imaging from the level of the lung apices to themid thighs was performed without contrast. Coronal and axialreconstructions were obtained. Images were loaded to the PACS archive andreviewed on a PACS workstation. CHEST FINDINGS:Devices: An endotracheal tube is seen with tip extending approximately 5.6cm superior to the amol. A NG tube courses through the esophagus with tipending in the gastric fundus. LUNGS AND PLEURA: Multifocal mixed attenuation opacities and diffusecentrilobular groundglass nodules present throughout all lobes of the lungwith relativesparing of the right upper lobe. Confluent consolidation andatelectasis present in the left lower lobe. Small left pleural effusion.LYMPH NODES: Scattered small lymph nodes in both sides of the mediastinumand hilar regions. No evidence of intrathoracic lymphadenopathy.MEDIASTINUM AND LOWER NECK: No central airway lesions are detected. Theesophagus is within normal limits. The included thyroid gland appearsnormal.HEART AND GREAT VESSELS: The heart is normal in size. No pericardialabnormalities are identified. The thoracic aorta is normal in caliber.Significant calcified atherosclerotic plaque seen throughout the thoracicaorta and its branches. The pulmonary trunk is normal in caliber.OSSEOUS STRUCTURES AND SOFT TISSUES: Hypoplastic 12th ribs. Compressiondeformity of T12 results in approximately 50% height loss; sclerosis withinthe vertebral body suggests chronic nature, however there are somelucencies scattered within the vertebral body which could representacute-subacute fracture lines. Additionally, there is mild retropulsioninto the spinal canal of up to 0.4 cm; this causes minimal spinal canalnarrowing. Cachectic body habitus with diffuse body wall edema.ABDOMEN AND PELVIS FINDINGS:Limitedevaluation of solid organs in the absence of IV contrast. LIVER: No focal hepatic lesions. Normal co ntour.GALLBLADDER AND BILIARY TREE: No biliary ductal dilation. No gallbladderwall thickening.SPLEEN: No splenomegaly.PANCREAS: No ductal dilation or masses.ADRENAL GLANDS: No adrenal nodules.KIDNEYS:Mild perinephric fat stranding seen bilaterally. Nohydronephrosis, or nephrolithiasis.PERITONEUM AND RETROPERITONEUM: No extraluminal free air. Small volume freefluid seen in the pelvis.LYMPH NODES: Nolymphadenopathy.GI TRACT: No dilation or wall thickening. Inspissated stool fills therectum and is seen throughout the entire colon.PELVIS/BLADDER: Limited evaluation due to streak artifact related to t heleft total hip replacement hardware. Bladder is decompressed about a Foleycatheter.VESSELS: Severecalcified atherosclerotic plaque affects the aortoiliacvessels and their branches. A right femoral venous catheter tip extendsinto the right mid pelvis. Posteromedial to the catheter within theadductorcompartment of the thigh, there is diffuse thickening of themuscles with mild heterogeneous density which is probably due to hematoma.Whether there is active bleeding is not able to be determined in thisnoncontrast exam.BONES AND SOFT TISSUES: Compression deformity of L3 vertebral body resultsin approx imately 30% height loss. Similar to the T12 fracture, there areareas of sclerosis and lucency which may represent fractures of differentages. Postsurgical changes of a left total hip arthroplasty.IMPRESSION1. Multifocal mixed attenuation opacities and diffuse centrilobulargroundglass nodules present throughout all lobes of the lung with relativesparing of the right upper lobe is concerning for atypical pneumonia. Givensomewhat dependent predilection, this could be due to aspiration. Confluentconsolidation and atelectasis present in the left lower lobe. Small leftpleural effusion.2. Mostly intramuscular hematoma of the abductor compartment of the rightthigh, likely due to vascular injury related to the femoral central venouscatheter placement. Active hemorrhage cannot be evaluated in the absenceofintravenous contrast.3. Diffuse bony demineralization with compression deformities of T12 andL3 vertebral bodies. Appearance suggests acute-subacute on chronicfractures.Findings of hematoma discussed with Dr. Austin at 1225 on 10/26/2020. Preliminary Report Dictated by Resident: Gwen Hawthorne, Josiah Natarajan MD., have reviewed this study and agree with the abovereport.[facility] GLUCOSE (AUTOMATED)2020-10-26 16:56:22 Test Item Value Reference Range Interpretation Comments POCT GLU (test code = 1751702715) 179 mg/dL 70-110 H Lab Interpretation (test code = Abnormal 09773-5) [facility] GLUCOSE (AUTOMATED)2020-10-26 13:03:19 Test Item Value Reference Range Interpretation Comments POCT GLU (test code = 4595446507) 164 mg/dL 70-110 H Lab Interpretation (test code = Abnormal 69740-8) [id number] 09:45:42 Test Item Value Reference Range Interpretation Comments TROPONIN I (test 0.120 ng/mL See_Comment H [Automated code = 8013151559) message] The system which generated this result transmitted reference range : <=0.034. The reference range was not used to interpret this result as normal/abnormal . JUAN LUIS (test code = Equal or Less than JUAN LUIS) 0.034 ng/ml---Normal ?Note: Cardiac troponin begins to rise 3-4 hours after the onset of ischemia. Repeat in 4-6 hours if the sample was drawn within 3-4 hours of the onset of the symptom and found normal. Between 0.035 and 0.120 ng/mL--- Borderline. Questionable myocardial injury or necrosis ? ?Note: Serial measurement may be necessary to confirm or exclude the diagnosis of myocardial injury or necrosis; Clinical correlation (symptoms, EKGs, imaging studies, and others) required; Repeat in 4-6 hours if clinically indicated. ? Equal or Higher than 0.121 ng/mL---Abnormal. Myocardial Injury or Necrosis Likely ? Biotin has been reported to cause a negative bias, interpret results relative to patient's use of biotin. ? Lab Interpretation Abnormal (test code = 61562-2) [facility] WITH [id number] 09:41:39 Test Item Value Reference Range Interpretation Comments WBC (test code = See_Comment H [Automated 6690-2) message] The sy stem which generated this result transmitted reference range : 4.20 - 10.70 10*3/?L. The reference range was not used to interpret this result as normal/abnormal . RBC (test code = See_Comment L [Automated 789-8) message] The sy stem which generated this result transmitted reference range : 4.26 - 5.52 10*6/?L. The reference range was not used to interpret this result as normal/abnormal . HGB (test code = 8.9 g/dL 12.2-16.4 L 718-7) HCT (test code = 28.1 % 38.4-49.3 L 4544-3) MCV (test code = 77.0 fL 81.7-95.6 L 787-2) MCH (test code = 24.4 pg 26.1-32.7 L 785-6) MCHC (test code = 31.7 g/dL 31.2-35.0 786-4) RDW-SD (test code = 58.0 fL 38.5-51.6 H 32117-5) RDW-CV (test code = 21.2 % 12.1-15.4 H 788-0) PLT (test code = See_Comment [Automated 777-3) message] The sy stem which generated this result transmitted reference range : 150 - 328 10*3/ ?L. The reference r christine was not used to interpret this result as normal/abnormal . MPV (test code = 12.3 fL 9.8-13.0 68204-8) IPF % (test code = 2.6 % 1.2-10.7 Platelet count [id number]) measured by fluorescence method. NRBC/100 WBC (test See_Comment [Automat ed code = 7773559533) message] The system which generated this result transmitted reference range : 0.0 - 10.0 /100 WBCs. The refer ence range was not u sed to interpret th is result as normal/abnormal . NRBC x10^3 (test code See_Comment [Auto mated = [id number]) message] The s ystem which generated this result transmitted reference range : 10*3/?L. The reference range was not used to interpret this result as normal/abnormal . GRAN MAT (NEUT) % 84.2 % (test code = 770-8) IMM GRAN % (test code 2.50 % = 7025907520) LYMPH % (test code = 4.7 % 736-9) MONO % (test code = 8.1 % 5905-5) EOS % (test code = 0.1 % 713-8) BASO % (test code = 0.4 % 706-2) GRAN MAT x10^3(ANC) 13.91 10*3/uL 1.99-6.95 H (test code = 1965794068) IMM GRAN x10^3 (test 0.42 10*3/uL 0.00-0.06 H code = 8881374206) LYMPH x10^3 (test 0.77 10*3/uL 1.09-3.23 L code = 731-0) MONO x10^3 (test code 1.33 10*3/uL 0.36-1.02 H = 742-7) EOS x10^3 (test code <0.03 0.06-0.53 L = 711-2) BASO x10^3 (test code 0.06 10*3/uL 0.01-0.09 = 704-7) BASO STIPPLING (test Present A code = 703-9) YVES CELLS (test code 2+ See_Comment A [Auto mated = 7790-9) message] The sy stem which generated this result transmitted reference range : (none). The reference range was not used to interpret this result as normal/abnormal . SCHISTOCYTES (test 1+ A code = 800-3) Lab Interpretation Abnormal (test code = 08464-0) [facility] METABOLIC PANEL (NA, K, CL, CO2, GLUCOSE, BUN, CREATININE, CA)2020-10-26 09:35:35 Test Item Value Reference Range Interpretation Comments NA (test code = 151 mmol/L 135-145 H 4132339052) K (test code = 3.6 mmol/L 3.5-5.0 1022010878) CL (test code = 121 mmol/L 98-108 H 6842148698) CO2 TOTAL (test code = 15 mmol/L 23-31 L 1599413514) AGAP (test code = 2-16 3998990292) BUN (test code = 57 mg/dL 7-23 H 7316439115) GLUCOSE (test code = 168 mg/dL 70-110 H 2424019584) CREATININE (test code = 1.46 mg/dL 0.60-1.25 H 1869128304) CALCIUM (test code = 9.1 mg/dL 8.6-10.6 1015452017) eGFR (test code = mL/min/1.73m2 2819111026) JUAN LUIS (test code = JUAN LUIS) Association of Glomerular Filtration Rate (GFR) and Staging of Kidney Disease* + --+ --+ ------+| GFR (mL/min/1.73 m2) ?| With Kidney Damage ?| ?Without Kidney Damage+ --------+ --------+ +| ?>90 ?| ?Stage one ?| ? Normal ?+ ---+ ---+ -------+| ?60-89 ?| ?Stage two ?| ? Decreased GFR ? + --+ --+ ------+| ?30-59 ?| ?Stage three ?| ? Stage three ? + --+ --+ ------+| ?15-29 ?| ?Stage four ? | ? Stage four ?+ ---+ ---+ -------+| ?<15 (or dialysis) ? ?| ?Stage five ? | ? Stage five ?+ ---+ ---+ -------+ *Each stage assumes the associated GFR level has been in effect for at least three months. ?Stages 1 to 5, with or without kidney disease, indicate chronic kidney disease. Notes: Determination of stages one and two (with eGFR >59mL/min/1.73 m2) requires estimation of kidney damage for at least three months as defined by structural or functional abnormalities of the kidney, manifested by either:Pathological abnormalities or Markers of kidney damage (including abnormalities in the composition of the blood or urine or abnormalities in imaging tests). Lab Interpretation Abnormal (test code = 36417-9) [facility]43 Test Item Value Reference Range Interpretation Comments MAGNESIUM (test code = 3549158424) 2.3 mg/dL 1.7-2.4 Lab Interpretation (test code = Normal 43556-2) [facility] [id number] 02:54:02 Test Item Value Reference Range Interpretation Comments TROPONIN I (test 0.117 ng/mL See_Comment H [Automated code = 9467476602) message] The system which generated this result transmitted reference range : <=0.034. The reference range was not used to interpret this result as normal/abnormal . JUAN LUIS (test code = Equal or Less than JUAN LUIS) 0.034 ng/ml---Normal ?Note: Cardiac troponin begins to rise 3-4 hours after the onset of ischemia. Repeat in 4-6 hours if the sample was drawn within 3-4 hours of the onset of the symptom and found normal. Between 0.035 and 0.120 ng/mL--- Borderline. Questionable myocardial injury or necrosis ? ?Note: Serial measurement may be necessary to confirm or exclude the diagnosis of myocardial injury or necrosis; Clinical correlation (symptoms, EKGs, imaging studies, and others) required; Repeat in 4-6 hours if clinically indicated. ? Equal or Higher than 0.121 ng/mL---Abnormal. Myocardial Injury or Necrosis Likely ? Biotin has been reported to cause a negative bias, interpret results relative to patient's use of biotin. ? Lab Interpretation Abnormal (test code = 65478-4) [facility] GLUCOSE (AUTOMATED)2020-10-26 02:34:02 Test Item Value Reference Range Interpretation Comments POCT GLU (test code = 6996221346) 193 mg/dL 70-110 H Lab Interpretation (test code = Abnormal 79954-6) [facility] GLUCOSE (AUTOMATED)2020-10-25 23:37:15 Test Item Value Reference Range Interpretation Comments POCT GLU (test code = 6901001813) 166 mg/dL 70-110 H Lab Interpretation (test code = Abnormal 41372-7) [facility] [id number] 20:45:53 Test Item Value Reference Range Interpretation Comments TROPONIN I (test 0.136 ng/mL See_Comment H [Automated code = 2239865572) message] The system which generated this result transmitted reference range : <=0.034. The reference range was not used to interpret this result as normal/abnormal . JUAN LUIS (test code = Equal or Less than JUAN LUIS) 0.034 ng/ml---Normal ?Note: Cardiac troponin begins to rise 3-4 hours after the onset of ischemia. Repeat in 4-6 hours if the sample was drawn within 3-4 hours of the onset of the symptom and found normal. Between 0.035 and 0.120 ng/mL--- Borderline. Questionable myocardial injury or necrosis ? ?Note: Serial measurement may be necessary to confirm or exclude the diagnosis of myocardial injury or necrosis; Clinical correlation (symptoms, EKGs, imaging studies, and others) required; Repeat in 4-6 hours if clinically indicated. ? Equal or Higher than 0.121 ng/mL---Abnormal. Myocardial Injury or Necrosis Likely ? Biotin has been reported to cause a negative bias, interpret results relative to patient's use of biotin. ? Lab Interpretation Abnormal (test code = 31456-8) [facility] 20:27:09 Test Item Value Reference Range Interpretation Comments MAGNESIUM (test code = 9152898538) 2.3 mg/dL 1.7-2.4 Lab Interpretation (test code = Normal 15982-8) [facility] (NA, K, CL, CO2, GLUCOSE, BUN, CREATININE, CA)2020-10-25 20:06:41 Test Item Value Reference Range Interpretation Comments NA (test code = 147 mmol/L 135-145 H 2209798778) K (test code = 3.8 mmol/L 3.5-5.0 1065236966) CL (test code = 118 mmol/L 98-108 H 4270765830) CO2 TOTAL (test code = 15 mmol/L 23-31 L 9404012800) AGAP (test code = 2-16 1690235967) BUN (test code = 61 mg/dL 7-23 H 2977232339) GLUCOSE (test code = 174 mg/dL 70-110 H 8051873753) CREATININE (test code = 1.59 mg/dL 0.60-1.25 H 7376012079) CALCIUM (test code = 9.3 mg/dL 8.6-10.6 7325194842) eGFR (test code = mL/min/1.73m2 7479577386) JUAN LUIS (test code = JUAN LUIS) Association of Glomerular Filtration Rate (GFR) and Staging of Kidney Disease* + --+ --+ ------+| GFR (mL/min/1.73 m2) ?| With Kidney Damage ?| ?Without Kidney Damage+ --------+ --------+ +| ?>90 ?| ?Stage one ?| ? Normal ?+ ---+ ---+ -------+| ?60-89 ?| ?Stage two ?| ? Decreased GFR ? + --+ --+ ------+| ?30-59 ?| ?Stage three ?| ? Stage three ? + --+ --+ ------+| ?15-29 ?| ?Stage four ? | ? Stage four ?+ ---+ ---+ -------+| ?<15 (or dialysis) ? ?| ?Stage five ? | ? Stage five ?+ ---+ ---+ -------+ *Each stage assumes the associated GFR level has been in effect for at least three months. ?Stages 1 to 5, with or without kidney disease, indicate chronic kidney disease. Notes: Determination of stages one and two (with eGFR >59mL/min/1.73 m2) requires estimation of kidney damage for at least three months as defined by structural or functional abnormalities of the kidney, manifested by either:Pathological abnormalities or Markers of kidney damage (including abnormalities in the composition of the blood or urine or abnormalities in imaging tests). Lab Interpretation Abnormal (test code = 62824-1) [facility] LACTIC [id number] 19:54:16 Test Item Value Reference Range Interpretation Comments PH (test code = 2) 7.35-7.45 PCO2 (test code = See_Comment L [Automat ed 7380226020) message] The sy stem which generated this result transmitted reference range : 35 - 45 mmHg. The reference range was not used to interpret this result as normal/abnormal . PO2 (test code = See_Comment [Automated 9210313574) message] The sy stem which generated this result transmitted reference range : 80 - 100 mmHg. The reference range was not used to interpret this result as normal/abnormal . HCO3 (test code = See_Comment L [Automate d 0115927509) message] The sy stem which generated this result transmitted reference range : 22 - 26 mEq/L. The reference range was not used to interpret this result as normal/abnormal . BE (test code = See_Comment L [Automated 4730106738) message] The sy stem which generated this result transmitted reference range : -3.0 - 3.0 mEq/ L. The reference r christine was not used to interpret this result as normal/abnormal . THB (test code = 10.0 g/dL 13.5-18.0 L 3620219743) %O2HB (test code = 96.5 % 94.0-99.0 0115007029) %COHB ART (test code = 0.2 % 0.0-1.5 1150371744) %METHB ART (test code = 0.3 % 0.4-1.5 L 1370223745) VOL%O2 ART (test code = 13.7 % 15.0-23.0 L 7821524435) NA (test code = 149 mmol/L 135-145 H 9818178040) K+ (test code = 3.8 mmol/L 3.5-5.0 0268985551) AC CA IONZ (test code = 5.20 mg/dL 4.50-5.30 9903720684) GLUCOSE (test code = 178 mg/dL 70-110 H 2841911562) LACTIC ACID (test code 1.36 mmol/L 0.50-2.20 = 9769420738) Lab Interpretation Abnormal (test code = 97617-8) [facility] [id number] 18:33:03 Test Item Value Reference Range Interpretation Comments PH (test code = 2) 7.35-7.45 L PCO2 (test code = See_Comment L [Automat ed 3238587689) message] The sy stem which generated this result transmitted reference range : 35 - 45 mmHg. The reference range was not used to interpret this result as normal/abnormal . PO2 (test code = See_Comment [Automated 6146322476) message] The sy stem which generated this result transmitted reference range : 80 - 100 mmHg. The reference range was not used to interpret this result as normal/abnormal . HCO3 (test code = See_Comment L [Automate d 3587612809) message] The sy stem which generated this result transmitted reference range : 22 - 26 mEq/L. The reference range was not used to interpret this result as normal/abnormal . BE (test code = See_Comment L [Automated 6648447848) message] The sy stem which generated this result transmitted reference range : -3.0 - 3.0 mEq/ L. The reference r christine was not used to interpret this result as normal/abnormal . THB (test code = 11.4 g/dL 13.5-18.0 L 6821718240) %O2HB (test code = 97.0 % 94.0-99.0 1754516059) %COHB ART (test code = 0.3 % 0.0-1.5 8199237402) %METHB ART (test code = 0.0 % 0.4-1.5 L 1901498869) VOL%O2 ART (test code = 15.7 % 15.0-23.0 3079739706) NA (test code = 147 mmol/L 135-145 H 0928362503) K+ (test code = 3.8 mmol/L 3.5-5.0 0286583379) AC CA IONZ (test code = 5.30 mg/dL 4.50-5.30 5318476576) GLUCOSE (test code = 173 mg/dL 70-110 H 1339013056) LACTIC ACID (test code 1.08 mmol/L 0.50-2.20 = 1365658810) Lab Interpretation Abnormal (test code = 49572-0) [facility]2020-10-25 17:17:08 Test Item Value Reference Range Interpretation Comments POCT GLU (test code = 3347093104) 179 mg/dL 70-110 H Lab Interpretation (test code = Abnormal 12667-0) [facility] [id number] 15:31:09 Test Item Value Reference Range Interpretation Comments PH (test code = 2) 7.35-7.45 PCO2 (test code = See_Comment L [Automat ed 6273459469) message] The sy stem which generated this result transmitted reference range : 35 - 45 mmHg. The reference range was not used to interpret this result as normal/abnormal . PO2 (test code = See_Comment [Automated 3168957837) message] The sy stem which generated this result transmitted reference range : 80 - 100 mmHg. The reference range was not used to interpret this result as normal/abnormal . HCO3 (test code = See_Comment L [Automate d 0546922164) message] The sy stem which generated this result transmitted reference range : 22 - 26 mEq/L. The reference range was not used to interpret this result as normal/abnormal . BE (test code = See_Comment L [Automated 4290280899) message] The sy stem which generated this result transmitted reference range : -3.0 - 3.0 mEq/ L. The reference r christine was not used to interpret this result as normal/abnormal . THB (test code = 9.3 g/dL 13.5-18.0 L 9125715944) %O2HB (test code = 96.5 % 94.0-99.0 5202794106) %COHB ART (test code = 0.3 % 0.0-1.5 0741858434) %METHB ART (test code = 0.3 % 0.4-1.5 L 2095284351) VOL%O2 ART (test code = 12.8 % 15.0-23.0 L 1844974264) NA (test code = 144 mmol/L 135-145 4486167959) K+ (test code = 3.6 mmol/L 3.5-5.0 8310834393) AC CA IONZ (test code = 5.10 mg/dL 4.50-5.30 3746787158) GLUCOSE (test code = 177 mg/dL 70-110 H 4697854215) LACTIC ACID (test code 0.92 mmol/L 0.50-2.20 = 9419645363) Lab Interpretation Abnormal (test code = 27142-6) [facility]2020-10-25 12:43:51 Test Item Value Reference Range Interpretation Comments POCT GLU (test code = 0722429330) 213 mg/dL 70-110 H Lab Interpretation (test code = Abnormal 68389-4) [facility] WITH [id number] 10:09:26 Test Item Value Reference Range Interpretation Comments WBC (test code = See_Comment H [Automated 6690-2) message] The sy stem which generated this result transmitted reference range : 4.20 - 10.70 10*3/?L. The reference range was not used to interpret this result as normal/abnormal . RBC (test code = See_Comment L [Automated 789-8) message] The sy stem which generated this result transmitted reference range : 4.26 - 5.52 10*6/?L. The reference range was not used to interpret this result as normal/abnormal . HGB (test code = 8.9 g/dL 12.2-16.4 L 718-7) HCT (test code = 27.3 % 38.4-49.3 L 4544-3) MCV (test code = 76.7 fL 81.7-95.6 L 787-2) MCH (test code = 25.0 pg 26.1-32.7 L 785-6) MCHC (test code = 32.6 g/dL 31.2-35.0 786-4) RDW-SD (test code = 56.3 fL 38.5-51.6 H 24503-2) RDW-CV (test code = 20.6 % 12.1-15.4 H 788-0) PLT (test code = See_Comment [Automated 777-3) message] The sy stem which generated this result transmitted reference range : 150 - 328 10*3/ ?L. The reference r christine was not used to interpret this result as normal/abnormal . MPV (test code = 12.6 fL 9.8-13.0 48470-5) IPF % (test code = 2.3 % 1.2-10.7 Platelet count 6249537836) measured by fluorescence method. NRBC/100 WBC (test See_Comment [Automat ed code = 7115417061) message] The system which generated this result transmitted reference range : 0.0 - 10.0 /100 WBCs. The refer ence range was not u sed to interpret th is result as normal/abnormal . NRBC x10^3 (test code See_Comment [Auto mated = 2526936630) message] The s ystem which generated this result transmitted reference range : 10*3/?L. The reference range was not used to interpret this result as normal/abnormal . GRAN MAT (NEUT) % 89.5 % (test code = 770-8) IMM GRAN % (test code 2.30 % = 3217588187) LYMPH % (test code = 3.9 % 736-9) MONO % (test code = 3.8 % 5905-5) EOS % (test code = 0.1 % 713-8) BASO % (test code = 0.4 % 706-2) GRAN MAT x10^3(ANC) 13.12 10*3/uL 1.99-6.95 H (test code = 2009105407) IMM GRAN x10^3 (test 0.34 10*3/uL 0.00-0.06 H code = 8775274812) LYMPH x10^3 (test 0.57 10*3/uL 1.09-3.23 L code = 731-0) MONO x10^3 (test code 0.56 10*3/uL 0.36-1.02 = 742-7) EOS x10^3 (test code <0.03 0.06-0.53 L = 711-2) BASO x10^3 (test code 0.06 10*3/uL 0.01-0.09 = 704-7) YVES CELLS (test code 2+ See_Comment A [Auto mated = 5590-9) message] The sy stem which generated this result transmitted reference range : (none). The reference range was not used to interpret this result as normal/abnormal . SCHISTOCYTES (test 1+ A code = 800-3) Lab Interpretation Abnormal (test code = 52787-1) [facility] METABOLIC PANEL (NA, K, CL, CO2, GLUCOSE, BUN, CREATININE, CA)2020-10-25 09:03:31 Test Item Value Reference Range Interpretation Comments NA (test code = 147 mmol/L 135-145 H 9316511265) K (test code = 3.6 mmol/L 3.5-5.0 2620844295) CL (test code = 115 mmol/L 98-108 H 7625058333) CO2 TOTAL (test code = 14 mmol/L 23-31 L 4364790942) AGAP (test code = 2-16 H 0798163214) BUN (test code = 58 mg/dL 7-23 H 7475132815) GLUCOSE (test code = 193 mg/dL 70-110 H 4651687925) CREATININE (test code = 1.58 mg/dL 0.60-1.25 H 9911109161) CALCIUM (test code = 9.3 mg/dL 8.6-10.6 8581437816) eGFR (test code = mL/min/1.73m2 8895014926) JUAN LUIS (test code = JUAN LUIS) Association of Glomerular Filtration Rate (GFR) and Staging of Kidney Disease* + --+ --+ ------+| GFR (mL/min/1.73 m2) ?| With Kidney Damage ?| ?Without Kidney Damage+ --------+ --------+ +| ?>90 ?| ?Stage one ?| ? Normal ?+ ---+ ---+ -------+| ?60-89 ?| ?Stage two ?| ? Decreased GFR ? + --+ --+ ------+| ?30-59 ?| ?Stage three ?| ? Stage three ? + --+ --+ ------+| ?15-29 ?| ?Stage four ? | ? Stage four ?+ ---+ ---+ -------+| ?<15 (or dialysis) ? ?| ?Stage five ? | ? Stage five ?+ ---+ ---+ -------+ *Each stage assumes the associated GFR level has been in effect for at least three months. ?Stages 1 to 5, with or without kidney disease, indicate chronic kidney disease. Notes: Determination of stages one and two (with eGFR >59mL/min/1.73 m2) requires estimation of kidney damage for at least three months as defined by structural or functional abnormalities of the kidney, manifested by either:Pathological abnormalities or Markers of kidney damage (including abnormalities in the composition of the blood or urine or abnormalities in imaging tests). Lab Interpretation Abnormal (test code = 36124-5) [facility]03:31 Test Item Value Reference Range Interpretation Comments MAGNESIUM (test code = 6960653536) 2.2 mg/dL 1.7-2.4 Lab Interpretation (test code = Normal 49159-4) [facility] GLUCOSE (AUTOMATED)2020-10-25 01:29:10 Test Item Value Reference Range Interpretation Comments POCT GLU (test code = 7182057223) 135 mg/dL 70-110 H Lab Interpretation (test code = Abnormal 12639-2) [facility] GLUCOSE (AUTOMATED)2020-10-24 21:38:54 Test Item Value Reference Range Interpretation Comments POCT GLU (test code = 8241494235) 131 mg/dL 70-110 H Lab Interpretation (test code = Abnormal 76359-2) [facility] HEAD WO [id number] 20:06:13 No acute intracranial abnormality. Bilateral mastoid effusion and partial opacification of the paranasalsinuses probably secondary to intubation. Preliminary Report Dictated by Resident: Chad Byrd MD., have reviewed this study and agree with the abovereport.CT HEAD WO CONTRAST HISTORY: 65 years-old male presents with altered mental status. COMPARISON: None TECHNIQUE: Axial CT of the head was performed and reconstructed at 2.5 and5 mm intervals. Coronal and sagittal reformatted images were generated. FINDINGS: The ventricles and cerebral sulci are prominent suggestive ofmild degreeof global cerebral volume loss. No midline shift or pathologicalextra-axial fluid collection is present. The basal cisterns areunremarkable. 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 No parenchymalattenuation abnormality is otherwise identified. The gonzales-white matterdifferentiation is preserved. Opacification of left mastoid air cells and left middle ear cavity noted.Mild opacification of right mastoid air cells. Partial opacification ofleft ethmoidal air cells, left maxillary sinus and sphenoid sinuses. Thecalvarium and central skull base are unremarkable. Orotracheal andorogastric tubes are partially imaged. [facility], Radiant Results Inft User - 10/24/2020 3:07 PM CDTCT HEAD WO CONTRASTHISTORY: 65 years-old male presents with altered mental status. COMPARISON: NoneTECHNIQUE: Axial CT of the head was performed and reconstructed at 2.5 and5 mm intervals. Coronal and sagittal reformatted images were gen erated.FINDINGS:The ventricles and cerebral sulci are prominent suggestive of mild degreeof global cerebral volume loss. No midline shift or pathologicalextra-axial fluid collection is present. The basal cisterns areunremarkable.There is no acute intracranial hemorrhage or significant mass effect.Remote lacunar infarct is noted in the right basal ganglia. No parenchymalattenuation abnormality is otherwise identified. The gonzales-white matterdifferentiation is preserved.Opacification of left mastoid aircells and left middle ear cavity noted.Mild opacification of right mastoid air cells. Partial opacification ofleft ethmoidal air cells, left maxillary sinus and sphenoid sinuses. Thecalvarium and central skull base are unremarkable. Orotracheal andorogastric tubes are partially imaged.IMPRESSIONNo acute intracranial abnormality. Bilateral mastoid effusion and partial opacification of the paranasalsinuses probably secondary to intubation.Preliminary Report Dictated by Resident: Jodi Wasserman MD., have reviewed this study and agree with the abovereport.[facility]2020-10[facility]24 16:52:54 Test Item Value Reference Range Interpretation Comments POCT GLU (test code = 8579794717) 137 mg/dL 70-110 H Lab Interpretation (test code = Abnormal 54666-3) [facility] - To confirm nasogastric tube placement.2020-10-24 14:05:05FINDINGS / IMPRESSION: Nasogastric tube tip and sidehole terminate at the proximal stomach. Preliminary Report Dictated by Resident: Emelia Mcdonald I reviewed this study and agree. IJigar MD., have reviewed this study and agree with theabove report.EXAM: XR ABDOMEN 1 VW HISTORY: 65 years-old Male presenting with To confirm nasogastric tube tubeplacement. COMPARISON: Abdomen plain film08/24/2019, 09/20/2017 TECHNIQUE: Frontal views of the abdomen were obtained. [facility], Radiant Results Inft User - 10/24/2020 9:06 AM CDTEXAM: XR ABDOMEN 1 VWHISTORY: 65 years-old Male presenting with To confirm nasogastric tube tubeplacement.COMPARISON: Abdomen plain film 08/24/2019, 09/20/2017TECHNIQUE: Frontal views of the abdomen were obtained.IMPRESSIONFINDINGS / IMPRESSION:Nasogastric tube tip and sidehole terminate at the proximal stomach.Preliminary Report Dictated by Resident: Emelia Mcdonald I reviewed this study and agree.I, Jigar Morrell MD., have reviewed this study and agree with theabove report.[facility]2020-10-24 12:53:15 Test Item Value Reference Range Interpretation Comments POCT GLU (test code = 3319253943) 142 mg/dL 70-110 H Lab Interpretation (test code = Abnormal 19045-6) [facility] WITH [id number] 10:52:23 Test Item Value Reference Range Interpretation Comments WBC (test code = See_Comment H [Automated 6690-2) message] The sy stem which generated this result transmitted reference range : 4.20 - 10.70 10*3/?L. The reference range was not used to interpret this result as normal/abnormal . RBC (test code = See_Comment L [Automated 789-8) message] The sy stem which generated this result transmitted reference range : 4.26 - 5.52 10*6/?L. The reference range was not used to interpret this result as normal/abnormal . HGB (test code = 8.2 g/dL 12.2-16.4 L 718-7) HCT (test code = 25.3 % 38.4-49.3 L 4544-3) MCV (test code = 76.0 fL 81.7-95.6 L 787-2) MCH (test code = 24.6 pg 26.1-32.7 L 785-6) MCHC (test code = 32.4 g/dL 31.2-35.0 786-4) RDW-SD (test code = 55.3 fL 38.5-51.6 H 87192-2) RDW-CV (test code = 20.4 % 12.1-15.4 H 788-0) PLT (test code = See_Comment [Automated 777-3) message] The sy stem which generated this result transmitted reference range : 150 - 328 10*3/ ?L. The reference r christine was not used to interpret this result as normal/abnormal . MPV (test code = 12.8 fL 9.8-13.0 96547-6) IPF % (test code = 4.3 % 1.2-10.7 Platelet count 5151240692) measured by fluorescence method. NRBC/100 WBC (test See_Comment [Automat ed code = 9265907083) message] The system which generated this result transmitted reference range : 0.0 - 10.0 /100 WBCs. The refer ence range was not u sed to interpret th is result as normal/abnormal . NRBC x10^3 (test code See_Comment [Auto mated = 9005287355) message] The s ystem which generated this result transmitted reference range : 10*3/?L. The reference range was not used to interpret this result as normal/abnormal . GRAN MAT (NEUT) % 90.4 % (test code = 770-8) IMM GRAN % (test code 0.80 % = 0609362654) LYMPH % (test code = 3.5 % 736-9) MONO % (test code = 4.9 % 5905-5) EOS % (test code = 0.1 % 713-8) BASO % (test code = 0.3 % 706-2) GRAN MAT x10^3(ANC) 12.98 10*3/uL 1.99-6.95 H (test code = 8409694563) IMM GRAN x10^3 (test 0.12 10*3/uL 0.00-0.06 H code = 1739674159) LYMPH x10^3 (test 0.51 10*3/uL 1.09-3.23 L code = 731-0) MONO x10^3 (test code 0.71 10*3/uL 0.36-1.02 = 742-7) EOS x10^3 (test code <0.03 0.06-0.53 L = 711-2) BASO x10^3 (test code 0.04 10*3/uL 0.01-0.09 = 704-7) ELLIPTO/OVAL (test 2+ See_Comment A [Automat ed code = 48179-9) message] The system which generated this result transmitted reference range : (none). The reference range was not used to interpret this result as normal/abnormal . SCHISTOCYTES (test 2+ A code = 800-3) BANDS (test code = Increased A 1935957225) Lab Interpretation Abnormal (test code = 99435-5) [facility] Test Item Value Reference Range Interpretation Comments MAGNESIUM (test code = 9042181277) 2.2 mg/dL 1.7-2.4 Lab Interpretation (test code = Normal 86305-2) [facility] METABOLIC PANEL (NA, K, CL, CO2, GLUCOSE, BUN, CREATININE, CA)2020-10-24 10:23:51 Test Item Value Reference Range Interpretation Comments NA (test code = 144 mmol/L 135-145 3769990418) K (test code = 3.7 mmol/L 3.5-5.0 0051103043) CL (test code = 114 mmol/L 98-108 H 7435144497) CO2 TOTAL (test code = 15 mmol/L 23-31 L 1919945751) AGAP (test code = 2-16 6866871049) BUN (test code = 63 mg/dL 7-23 H 4227063318) GLUCOSE (test code = 140 mg/dL 70-110 H 7378083011) CREATININE (test code = 1.76 mg/dL 0.60-1.25 H 7663113588) CALCIUM (test code = 9.3 mg/dL 8.6-10.6 9353513134) eGFR (test code = mL/min/1.73m2 8475441149) JUAN LUIS (test code = JUAN LUIS) Association of Glomerular Filtration Rate (GFR) and Staging of Kidney Disease* + --+ --+ ------+| GFR (mL/min/1.73 m2) ?| With Kidney Damage ?| ?Without Kidney Damage+ --------+ --------+ +| ?>90 ?| ?Stage one ?| ? Normal ?+ ---+ ---+ -------+| ?60-89 ?| ?Stage two ?| ? Decreased GFR ? + --+ --+ ------+| ?30-59 ?| ?Stage three ?| ? Stage three ? + --+ --+ ------+| ?15-29 ?| ?Stage four ? | ? Stage four ?+ ---+ ---+ -------+| ?<15 (or dialysis) ? ?| ?Stage five ? | ? Stage five ?+ ---+ ---+ -------+ *Each stage assumes the associated GFR level has been in effect for at least three months. ?Stages 1 to 5, with or without kidney disease, indicate chronic kidney disease. Notes: Determination of stages one and two (with eGFR >59mL/min/1.73 m2) requires estimation of kidney damage for at least three months as defined by structural or functional abnormalities of the kidney, manifested by either:Pathological abnormalities or Markers of kidney damage (including abnormalities in the composition of the blood or urine or abnormalities in imaging tests). Lab Interpretation Abnormal (test code = 07662-0) [facility] GLUCOSE (AUTOMATED)2020-10-24 01:03:00 Test Item Value Reference Range Interpretation Comments POCT GLU (test code = 7763218375) 117 mg/dL 70-110 H Lab Interpretation (test code = Abnormal 23986-4) [facility] GLUCOSE (AUTOMATED)2020-10-23 23:30:25 Test Item Value Reference Range Interpretation Comments POCT GLU (test code = 3582594879) 129 mg/dL 70-110 H Lab Interpretation (test code = Abnormal 13434-6) [facility] GLUCOSE (AUTOMATED)2020-10-23 18:08:09 Test Item Value Reference Range Interpretation Comments POCT GLU (test code = 4873471442) 125 mg/dL 70-110 H Lab Interpretation (test code = Abnormal 98359-2) [facility] by Britney [id number] 17:04:24 Test Item Value Reference Range Interpretation Comments MSSA Screen by Britney MTZ (test code Negative Negative = 12064-9) MRSA/MSSA Positive? (test code = No No [id number]) Lab Interpretation (test code = Normal 70277-1) [facility] WITH [id number] 14:13:40 Test Item Value Reference Range Interpretation Comments WBC (test code = See_Comment H [Automated 6690-2) message] The system which generated this result transmit tennille reference range : 4.20 - 10.70 10*3/?L. The reference range was not used to interpret this result as normal/abnormal . RBC (test code = See_Comment L [Automated 789-8) message] The system which generated this result transmit tennille reference range : 4.26 - 5.52 10*6/?L. The reference range was not used to interpret this result as normal/abnormal . HGB (test code = 7.9 g/dL 12.2-16.4 L 718-7) HCT (test code = 23.9 % 38.4-49.3 L 4544-3) MCV (test code = 75.2 fL 81.7-95.6 L 787-2) MCH (test code = 24.8 pg 26.1-32.7 L 785-6) MCHC (test code = 33.1 g/dL 31.2-35.0 786-4) RDW-SD (test code = 55.7 fL 38.5-51.6 H 25456-8) RDW-CV (test code = 21.0 % 12.1-15.4 H 788-0) PLT (test code = See_Comment L [Automated 777-3) message] The system which generated this result transmit tennille reference range : 150 - 328 10*3/ ?L. The reference range was not u sed to interpret th is result as normal/abnormal . MPV (test code = Not Measure d 04727-4) IPF % (test code = 6.0 % 1.2-10.7 Platelet count [id number]) measured by fluorescence method. NRBC/100 WBC (test See_Comment [Automat ed code = 7153314914) message] The system which generated this result transmit tennille reference range : 0.0 - 10.0 /100 WBCs. The reference range was not used to interpret this result as normal/abnormal . NRBC x10^3 (test code <0.01 See_Comment [Auto mated = 3307386817) message] The system which generated this result transmit tennille reference range : 10*3/?L. The reference range was not used to interpret this result as normal/abnormal . GRAN MAT (NEUT) % 87.1 % (test code = 770-8) IMM GRAN % (test code 0.30 % = 3608677683) LYMPH % (test code = 5.7 % 736-9) MONO % (test code = 6.1 % 5905-5) EOS % (test code = 0.5 % 713-8) BASO % (test code = 0.3 % 706-2) GRAN MAT x10^3(ANC) 9.40 10*3/uL 1.99-6.95 H (test code = 7740100960) IMM GRAN x10^3 (test 0.03 10*3/uL 0.00-0.06 code = 0312542169) LYMPH x10^3 (test 0.61 10*3/uL 1.09-3.23 L code = 731-0) MONO x10^3 (test code 0.66 10*3/uL 0.36-1.02 = 742-7) EOS x10^3 (test code 0.05 10*3/uL 0.06-0.53 L = 711-2) BASO x10^3 (test code 0.03 10*3/uL 0.01-0.09 = 704-7) ACANTHOCYTES (test 1+ See_Comment [Automat ed code = 7789-1) message] The system which generated this result transmit tennille reference range : 1+. The referen ce range was not u sed to interpret th is result as normal/abnormal . SCHISTOCYTES (test 1+ A code = 800-3) BANDS (test code = MARKED INCREASED A 4273189094) DOHLE BODIES (test Present A code = 7792-5) Lab Interpretation Abnormal (test code = 46766-5) [facility]2020-10[facility]23 13:07:35 Test Item Value Reference Range Interpretation Comments POCT GLU (test code = 2294936917) 124 mg/dL 70-110 H Lab Interpretation (test code = Abnormal 32869-1) [facility] Packed RBC (in units), 1 Units 2020-10-23 10:02:05 Test Item Value Reference Range Interpretation Comments Cross Match Result Compatible (test code = 4409) ISBT Blood Type Code (test code = 535899) Unit Blood Type (test A Pos code = 4410) Unit Number (test [id number] code = 4411) Blood Expiration Date & Time (test code = 585891) Status Information Issued (test code = 4412) Product Red Blood Cells Identification (test code = 4413) Product Code (test S2530P02 Performed at [facility] code = 4414) Laboratory Services - [facility] Blood [address] [place] [id number] Free: [phone] A No. [id number] [facility]2021-[facility]-11 09:48:31 Test Item Value Reference Range Interpretation Comments MAGNESIUM (test code = 8117809235) 2.1 mg/dL 1.7-2.4 Lab Interpretation (test code = Normal 59149-3) [facility] WITH [id number] 09:36:10 Test Item Value Reference Range Interpretation Comments WBC (test code = See_Comment [Automated 6690-2) message] The system which generated this result transmit tennille reference range : 4.20 - 10.70 10*3/?L. The reference range was not used to interpret this result as normal/abnormal . RBC (test code = See_Comment L [Automated 789-8) message] The system which generated this result transmit tennille reference range : 4.26 - 5.52 10*6/?L. The reference range was not used to interpret this result as normal/abnormal . HGB (test code = 6.7 g/dL 12.2-16.4 L 718-7) HCT (test code = 20.7 % 38.4-49.3 L 4544-3) MCV (test code = 72.4 fL 81.7-95.6 L 787-2) MCH (test code = 23.4 pg 26.1-32.7 L 785-6) MCHC (test code = 32.4 g/dL 31.2-35.0 786-4) RDW-SD (test code = 50.4 fL 38.5-51.6 77911-1) RDW-CV (test code = 19.6 % 12.1-15.4 H 788-0) PLT (test code = See_Comment L [Automated 777-3) message] The system which generated this result transmit tennille reference range : 150 - 328 10*3/ ?L. The reference range was not u sed to interpret th is result as normal/abnormal . MPV (test code = 12.5 fL 9.8-13.0 67570-9) IPF % (test code = 5.6 % 1.2-10.7 Platelet count 4387154342) measured by fluorescence method. NRBC/100 WBC (test See_Comment [Automat ed code = 7408417938) message] The system which generated this result transmit tennille reference range : 0.0 - 10.0 /100 WBCs. The reference range was not used to interpret this result as normal/abnormal . NRBC x10^3 (test code <0.01 See_Comment [Auto mated = 4150639715) message] The system which generated this result transmit tennille reference range : 10*3/?L. The reference range was not used to interpret this result as normal/abnormal . GRAN MAT (NEUT) % 86.0 % (test code = 770-8) IMM GRAN % (test code 0.30 % = 8929061168) LYMPH % (test code = 7.3 % 736-9) MONO % (test code = 5.8 % 5905-5) EOS % (test code = 0.4 % 713-8) BASO % (test code = 0.2 % 706-2) GRAN MAT x10^3(ANC) 7.75 10*3/uL 1.99-6.95 H (test code = 3077255692) IMM GRAN x10^3 (test 0.03 10*3/uL 0.00-0.06 code = 6346488689) LYMPH x10^3 (test 0.66 10*3/uL 1.09-3.23 L code = 731-0) MONO x10^3 (test code 0.52 10*3/uL 0.36-1.02 = 742-7) EOS x10^3 (test code 0.04 10*3/uL 0.06-0.53 L = 711-2) BASO x10^3 (test code <0.03 0.01-0.09 = 704-7) ACANTHOCYTES (test 1+ See_Comment [Automat ed code = 7789-1) message] The system which generated this result transmit tennille reference range : 1+. The referen ce range was not u sed to interpret th is result as normal/abnormal . BASO STIPPLING (test Present A code = 703-9) SCHISTOCYTES (test 1+ A code = 800-3) BANDS (test code = MARKED INCREASED A 5478181397) TOXIC CHANGES (test Present A code = 803-7) Lab Interpretation Abnormal (test code = 40357-7) [facility] METABOLIC PANEL (NA, K, CL, CO2, GLUCOSE, BUN, CREATININE, CA)2020-10-23 09:20:10 Test Item Value Reference Range Interpretation Comments NA (test code = 140 mmol/L 135-145 5570272266) K (test code = 3.7 mmol/L 3.5-5.0 8415199513) CL (test code = 111 mmol/L 98-108 H 9612730563) CO2 TOTAL (test code = 19 mmol/L 23-31 L 7672776341) AGAP (test code = 2-16 5110462422) BUN (test code = 72 mg/dL 7-23 H 7392607499) GLUCOSE (test code = 103 mg/dL 70-110 2292476652) CREATININE (test code = 1.88 mg/dL 0.60-1.25 H 0276972342) CALCIUM (test code = 9.2 mg/dL 8.6-10.6 6391071219) eGFR (test code = mL/min/1.73m2 3271336677) JUAN LUIS (test code = JUAN LUIS) Association of Glomerular Filtration Rate (GFR) and Staging of Kidney Disease* + --+ --+ ------+| GFR (mL/min/1.73 m2) ?| With Kidney Damage ?| ?Without Kidney Damage+ --------+ --------+ +| ?>90 ?| ?Stage one ?| ? Normal ?+ ---+ ---+ -------+| ?60-89 ?| ?Stage two ?| ? Decreased GFR ? + --+ --+ ------+| ?30-59 ?| ?Stage three ?| ? Stage three ? + --+ --+ ------+| ?15-29 ?| ?Stage four ? | ? Stage four ?+ ---+ ---+ -------+| ?<15 (or dialysis) ? ?| ?Stage five ? | ? Stage five ?+ ---+ ---+ -------+ *Each stage assumes the associated GFR level has been in effect for at least three months. ?Stages 1 to 5, with or without kidney disease, indicate chronic kidney disease. Notes: Determination of stages one and two (with eGFR >59mL/min/1.73 m2) requires estimation of kidney damage for at least three months as defined by structural or functional abnormalities of the kidney, manifested by either:Pathological abnormalities or Markers of kidney damage (including abnormalities in the composition of the blood or urine or abnormalities in imaging tests). Lab Interpretation Abnormal (test code = 54242-4) [facility] [id number] 23:41:10 Test Item Value Reference Range Interpretation Comments TROPONIN I (test 0.092 ng/mL See_Comment H [Automated code = 7590760819) message] The system which generated this result transmitted reference range : <=0.034. The reference range was not used to interpret this result as normal/abnormal . JUAN LUIS (test code = Equal or Less than JUAN LUIS) 0.034 ng/ml---Normal ?Note: Cardiac troponin begins to rise 3-4 hours after the onset of ischemia. Repeat in 4-6 hours if the sample was drawn within 3-4 hours of the onset of the symptom and found normal. Between 0.035 and 0.120 ng/mL--- Borderline. Questionable myocardial injury or necrosis ? ?Note: Serial measurement may be necessary to confirm or exclude the diagnosis of myocardial injury or necrosis; Clinical correlation (symptoms, EKGs, imaging studies, and others) required; Repeat in 4-6 hours if clinically indicated. ? Equal or Higher than 0.121 ng/mL---Abnormal. Myocardial Injury or Necrosis Likely ? Biotin has been reported to cause a negative bias, interpret results relative to patient's use of biotin. ? Lab Interpretation Abnormal (test code = 53863-3) [facility] WITH [id number] 23:37:34 Test Item Value Reference Range Interpretation Comments WBC (test code = See_Comment [Automated 7390-2) message] The system which generated this result transmit tennille reference range : 4.20 - 10.70 10*3/?L. The reference range was not used to interpret this result as normal/abnormal . RBC (test code = See_Comment L [Automated 789-8) message] The system which generated this result transmit tennille reference range : 4.26 - 5.52 10*6/?L. The reference range was not used to interpret this result as normal/abnormal . HGB (test code = 7.2 g/dL 12.2-16.4 L 718-7) HCT (test code = 21.7 % 38.4-49.3 L 4544-3) MCV (test code = 72.1 fL 81.7-95.6 L 787-2) MCH (test code = 23.9 pg 26.1-32.7 L 785-6) MCHC (test code = 33.2 g/dL 31.2-35.0 786-4) RDW-SD (test code = 50.0 fL 38.5-51.6 99805-6) RDW-CV (test code = 19.5 % 12.1-15.4 H 788-0) PLT (test code = See_Comment L [Automated 777-3) message] The system which generated this result transmit tennille reference range : 150 - 328 10*3/ ?L. The reference range was not u sed to interpret th is result as normal/abnormal . MPV (test code = 12.9 fL 9.8-13.0 25695-5) IPF % (test code = 4.4 % 1.2-10.7 Platelet count 5503102083) measured by fluorescence method. NRBC/100 WBC (test See_Comment [Automat ed code = 1414785617) message] The system which generated this result transmit tennille reference range : 0.0 - 10.0 /100 WBCs. The reference range was not used to interpret this result as normal/abnormal . NRBC x10^3 (test code <0.01 See_Comment [Auto mated = 0258982493) message] The system which generated this result transmit tennille reference range : 10*3/?L. The reference range was not used to interpret this result as normal/abnormal . GRAN MAT (NEUT) % 85.1 % (test code = 770-8) IMM GRAN % (test code 0.40 % = 5193451871) LYMPH % (test code = 7.4 % 736-9) MONO % (test code = 6.9 % 5905-5) EOS % (test code = 0.1 % 713-8) BASO % (test code = 0.1 % 706-2) GRAN MAT x10^3(ANC) 8.19 10*3/uL 1.99-6.95 H (test code = 0028403630) IMM GRAN x10^3 (test 0.04 10*3/uL 0.00-0.06 code = 9107697046) LYMPH x10^3 (test 0.71 10*3/uL 1.09-3.23 L code = 731-0) MONO x10^3 (test code 0.66 10*3/uL 0.36-1.02 = 742-7) EOS x10^3 (test code <0.03 0.06-0.53 L = 711-2) BASO x10^3 (test code <0.03 0.01-0.09 = 704-7) ACANTHOCYTES (test 1+ See_Comment [Automat ed code = 7789-1) message] The system which generated this result transmit tennille reference range : 1+. The referen ce range was not u sed to interpret th is result as normal/abnormal . BASO STIPPLING (test Present A code = 703-9) YVES CELLS (test code 2+ See_Comment A [Auto mated = 7790-9) message] The system which generated this result transmit tennille reference range : (none). The reference range was not used to interpret this result as normal/abnormal . SCHISTOCYTES (test 1+ A code = 800-3) BANDS (test code = MARKED INCREASED A 1985770838) Lab Interpretation Abnormal (test code = 81772-3) [facility] 1 [id number] 21:40:41 Endotracheal tube in good position. NG tube terminates in the left inferior chest possibly within ahiatalhernia. Correlate clinically. Multifocal infectious/inflammatory interstitial process. RL 1942 CHEST SINGLE VIEW CLINICAL HISTORY: Intubated ORDERING PHYSICIAN: KRYSTINA STARKS TECHNIQUE: Frontal view of chest COMPARISON: None available. FINDINGS: Sternotomy wires are intact. Endotracheal tube terminates 6 cm above thecarina. NG tube terminates in the left inferior chest, possibly within ahiatal hernia. The cardiac silhouette is within normal limits. Patchy diffuse interstitialopacities. Osseous structures are normal. [facility], Radiant Results Inft User - 10/22/2020 4:41 PM CDTCHEST SINGLE VIEWCLINICAL HISTORY: IntubatedORDERING PHYSICIAN: VONDA STARKSTECHSHAUNAQUE: Frontal view of chestCOMPARISON: None available.FINDINGS:Sternotomy wires are intact. Endotracheal tube terminates 6 cm above thecarina. NG tube terminates in the lef t inferior chest, possibly within ahiatal hernia. The cardiac silhouette is within normal limits. Patchy diffuse interstitialopacities.Osseous structures are normal. IMPRESSIONEndotracheal tube in goodposition.NG tube terminates in the left inferior chest possibly within a hiatalhernia. Correlate clin ically.Multifocal infectious/inflammatory interstitial process.[facility] [id number] 20:56:24 Test Item Value Reference Range Interpretation Comments FERRITIN (test code = 2110.0 ng/mL 18.0-464.0 H 7839108724) JUAN LUIS (test code = JUAN LUIS) Biotin has been reported to cause a negative bias, interpret results relative to patient's use of biotin. Lab Interpretation (test Abnormal code = 78963-2) [facility] [id number] 20:56:24 Test Item Value Reference Range Interpretation Comments FERRITIN (test code = 2110.0 ng/mL 18.0-464.0 H 8013581562) JUAN LUIS (test code = JUAN LUIS) Biotin has been reported to cause a negative bias, interpret results relative to patient's use of biotin. Lab Interpretation (test Abnormal code = 37177-1) [facility] [id number] 20:56:24 Test Item Value Reference Range Interpretation Comments FERRITIN (test code = 2110.0 ng/mL 18.0-464.0 H 1823158706) JUAN LUIS (test code = JUAN LUIS) Biotin has been reported to cause a negative bias, interpret results relative to patient's use of biotin. Lab Interpretation (test Abnormal code = 83583-2) [facility] (A1C)2020-10-22 19:31:47 Test Item Value Reference Range Interpretation Comments HGB A1C (test code = 4548-4) 4.9 % 4.0-6.0 Lab Interpretation (test code = Normal 89708-7) [facility] (A1C)2020-10-22 19:31:47 Test Item Value Reference Range Interpretation Comments HGB A1C (test code = 4548-4) 4.9 % 4.0-6.0 Lab Interpretation (test code = Normal 60098-2) [facility] (A1C)2020-10-22 19:31:47 Test Item Value Reference Range Interpretation Comments HGB A1C (test code = 4548-4) 4.9 % 4.0-6.0 Lab Interpretation (test code = Normal 06523-0) [facility] [id number] 19:18:54 Test Item Value Reference Range Interpretation Comments IRON (test code = <10 50-160 L 1876152985) TIBC (test code = 145 ug/dL 250-410 L 2527155204) % FE SAT (test code = Unable to calculate 5897844711) because, either iron serum, total ir on binding capacit y, or both are less t moser the sensitivity of the analyzer. Lab Interpretation (test Abnormal code = 78490-1) [facility] [id number] 19:18:54 Test Item Value Reference Range Interpretation Comments IRON (test code = <10 50-160 L 2453076053) TIBC (test code = 145 ug/dL 250-410 L 1078631461) % FE SAT (test code = Unable to calculate 4823648685) because, either iron serum, total ir on binding capacit y, or both are less t moser the sensitivity of the analyzer. Lab Interpretation (test Abnormal code = 79540-5) [facility] [id number] 19:18:54 Test Item Value Reference Range Interpretation Comments IRON (test code = <10 50-160 L 5863552493) TIBC (test code = 145 ug/dL 250-410 L 0229281836) % FE SAT (test code = Unable to calculate 5538750524) because, either iron serum, total ir on binding capacit y, or both are less t moser the sensitivity of the analyzer. Lab Interpretation (test Abnormal code = 01288-4) [facility] [id number] 19:11:37 Test Item Value Reference Range Interpretation Comments TROPONIN I (test 0.099 ng/mL See_Comment H [Automated code = 6836378238) message] The system which generated this result transmitted reference range : <=0.034. The reference range was not used to interpret this result as normal/abnormal . JUAN LUIS (test code = Equal or Less than JUAN LUIS) 0.034 ng/ml---Normal ?Note: Cardiac troponin begins to rise 3-4 hours after the onset of ischemia. Repeat in 4-6 hours if the sample was drawn within 3-4 hours of the onset of the symptom and found normal. Between 0.035 and 0.120 ng/mL--- Borderline. Questionable myocardial injury or necrosis ? ?Note: Serial measurement may be necessary to confirm or exclude the diagnosis of myocardial injury or necrosis; Clinical correlation (symptoms, EKGs, imaging studies, and others) required; Repeat in 4-6 hours if clinically indicated. ? Equal or Higher than 0.121 ng/mL---Abnormal. Myocardial Injury or Necrosis Likely ? Biotin has been reported to cause a negative bias, interpret results relative to patient's use of biotin. ? Lab Interpretation Abnormal (test code = 05041-1) [facility] WITH [id number] 18:26:52 Test Item Value Reference Range Interpretation Comments WBC (test code = See_Comment [Automated 7690-2) message] The system which generated this result transmit tennille reference range : 4.20 - 10.70 10*3/?L. The reference range was not used to interpret this result as normal/abnormal . RBC (test code = See_Comment L [Automated 429-8) message] The system which generated this result transmit tennille reference range : 4.26 - 5.52 10*6/?L. The reference range was not used to interpret this result as normal/abnormal . HGB (test code = 8.2 g/dL 12.2-16.4 L 718-7) HCT (test code = 25.2 % 38.4-49.3 L 4544-3) MCV (test code = 73.5 fL 81.7-95.6 L 787-2) MCH (test code = 23.9 pg 26.1-32.7 L 785-6) MCHC (test code = 32.5 g/dL 31.2-35.0 786-4) RDW-SD (test code = 51.3 fL 38.5-51.6 76406-3) RDW-CV (test code = 19.8 % 12.1-15.4 H 788-0) PLT (test code = See_Comment L [Automated 777-3) message] The system which generated this result transmit tennille reference range : 150 - 328 10*3/ ?L. The reference range was not u sed to interpret th is result as normal/abnormal . MPV (test code = 13.2 fL 9.8-13.0 H 83898-7) IPF % (test code = 4.8 % 1.2-10.7 Platelet count 9859306859) measured by fluorescence method. NRBC/100 WBC (test See_Comment [Automat ed code = 4184545555) message] The system which generated this result transmit tennille reference range : 0.0 - 10.0 /100 WBCs. The reference range was not used to interpret this result as normal/abnormal . NRBC x10^3 (test code <0.01 See_Comment [Auto mated = 4596210054) message] The system which generated this result transmit tennille reference range : 10*3/?L. The reference range was not used to interpret this result as normal/abnormal . GRAN MAT (NEUT) % 85.7 % (test code = 770-8) IMM GRAN % (test code 0.20 % = 8097068779) LYMPH % (test code = 6.1 % 736-9) MONO % (test code = 7.9 % 5905-5) EOS % (test code = 0.0 % 713-8) BASO % (test code = 0.1 % 706-2) GRAN MAT x10^3(ANC) 7.24 10*3/uL 1.99-6.95 H (test code = 8460908730) IMM GRAN x10^3 (test <0.03 0.00-0.06 code = 5714881210) LYMPH x10^3 (test 0.52 10*3/uL 1.09-3.23 L code = 731-0) MONO x10^3 (test code 0.67 10*3/uL 0.36-1.02 = 742-7) EOS x10^3 (test code <0.03 0.06-0.53 L = 711-2) BASO x10^3 (test code <0.03 0.01-0.09 = 704-7) ACANTHOCYTES (test 1+ See_Comment [Automat ed code = 7789-1) message] The system which generated this result transmit tennille reference range : 1+. The referen ce range was not u sed to interpret th is result as normal/abnormal . ELLIPTO/OVAL (test 2+ See_Comment A [Automat ed code = 02620-4) message] The system which generated this result transmit tennille reference range : (none). The reference range was not used to interpret this result as normal/abnormal . SCHISTOCYTES (test 2+ A code = 800-3) BANDS (test code = MARKED INCREASED A 8733616597) Lab Interpretation Abnormal (test code = 97575-8) [facility] Hospital[facility] Screen - ONCE [id number] 18:18:46 Test Item Value Reference Range Interpretation Comments ABO & RH (test code A POSITIVE Performe d at [facility] = 20) Laboratory Serv [facility] Blood Bank[address] [facility] s [address]Fjrq Free: [phone] A No. [id number] IAT (test code = Negative Performed a t [facility] 1185) Laboratory Serv [facility] Blood Bank3 [address] [facility] s [address]Tscw Free: [phone] A No. [id number] [facility] HospitalURINALYSIS2021-04-10 18:13:46 Test Item Value Reference Range Interpretation Comments APPEARANCE (test code = Cloudy Clear A 1534867788) COLOR (test code = Yellow Yellow 3208412332) PH (test code = 4.8-8.0 2282664707) SP GRAVITY (test code = 1.003-1.030 9167601392) GLU U QUAL (test code = Normal Normal 7394311681) BLOOD (test code = 2+ Negative A 0088664051) KETONES (test code = Negative Negative 4548968364) PROTEIN (test code = 100 mg/dL Negative A 2887-8) UROBILIN (test code = Normal Normal 5553643841) BILIRUBIN (test code = Negative Negative 7954487187) NITRITE (test code = Negative Negative 7120862603) LEUK SILVIO (test code = 500/uL Negative A 6390510705) RBC/HPF (test code = See_Comment H [Autom ated message] 5159326232) The system [employer] generated this result transmit tennille reference range : 0 - 3 HPF. The refe rence range was not u sed to interpret th is result as normal/abnormal . WBC/HPF (test code = >182 See_Comment H [Autom ated message] 0673949777) The system [employer] generated this result transmit tennille reference range : 0 - 5 HPF. The refe rence range was not u sed to interpret th is result as normal/abnormal . BACTERIA (test code = Few Negative A 7552733808) MUCOUS (test code = Slight Negative LPF A 7946723710) SQ EPITH (test code = See_Comment [Auto mated message] 8589900500) The system [employer] generated this result transmit tennille reference range : <=2 HPF. The refere nce range was not u sed to interpret th is result as normal/abnormal . WBC CLUMPS (test code = See_Comment H [Au tomated message] 1231640155) The system [employer] generated this result transmit tennille reference range : <=1 HPF. The refere nce range was not u sed to interpret th is result as normal/abnormal . HYAL CAST (test code = See_Comment H [Aut omated message] 1231604894) The system [employer] generated this result transmit tennille reference range : <=2 LPF. The refere nce range was not u sed to interpret th is result as normal/abnormal . Lab Interpretation (test Abnormal code = 48685-0) [facility] Test Item Value Reference Range Interpretation Comments APPEARANCE (test code = Cloudy Clear A 8174741560) COLOR (test code = Yellow Yellow 2147155178) PH (test code = 4.8-8.0 8021847663) SP GRAVITY (test code = 1.003-1.030 1333297784) GLU U QUAL (test code = Normal Normal 7221799386) BLOOD (test code = 2+ Negative A 8621755027) KETONES (test code = Negative Negative 8015319128) PROTEIN (test code = 100 mg/dL Negative A 2887-8) UROBILIN (test code = Normal Normal 5317074707) BILIRUBIN (test code = Negative Negative 8363295743) NITRITE (test code = Negative Negative 0652851286) LEUK SILVIO (test code = 500/uL Negative A 6671132180) RBC/HPF (test code = See_Comment H [Autom ated message] 9324272844) The system [employer] generated this result transmit tennille reference range : 0 - 3 HPF. The refe rence range was not u sed to interpret th is result as normal/abnormal . WBC/HPF (test code = >182 See_Comment H [Autom ated message] 8281443877) The system [employer] generated this result transmit tennille reference range : 0 - 5 HPF. The refe rence range was not u sed to interpret th is result as normal/abnormal . BACTERIA (test code = Few Negative A 5163852341) MUCOUS (test code = Slight Negative LPF A 5386497060) SQ EPITH (test code = See_Comment [Auto mated message] 0843900948) The system [employer] generated this result transmit tennille reference range : <=2 HPF. The refere nce range was not u sed to interpret th is result as normal/abnormal . WBC CLUMPS (test code = See_Comment H [Au tomated message] 2271757804) The system [employer] generated this result transmit tennille reference range : <=1 HPF. The refere nce range was not u sed to interpret th is result as normal/abnormal . HYAL CAST (test code = See_Comment H [Aut omated message] 6514326348) The system [employer] generated this result transmit tennille reference range : <=2 LPF. The refere nce range was not u sed to interpret th is result as normal/abnormal . Lab Interpretation (test Abnormal code = 73868-7) [facility] Test Item Value Reference Range Interpretation Comments APPEARANCE (test code = Cloudy Clear A 5474264728) COLOR (test code = Yellow Yellow 1460026385) PH (test code = 4.8-8.0 5987308142) SP GRAVITY (test code = 1.003-1.030 1140497955) GLU U QUAL (test code = Normal Normal 5447413785) BLOOD (test code = 2+ Negative A 8425348844) KETONES (test code = Negative Negative 4671802664) PROTEIN (test code = 100 mg/dL Negative A 2887-8) UROBILIN (test code = Normal Normal 9296088555) BILIRUBIN (test code = Negative Negative 1241609469) NITRITE (test code = Negative Negative 7980689961) LEUK SILVIO (test code = 500/uL Negative A 0902051889) RBC/HPF (test code = See_Comment H [Autom ated message] 6812732990) The system [employer] generated this result transmit tennille reference range : 0 - 3 HPF. The refe rence range was not u sed to interpret th is result as normal/abnormal . WBC/HPF (test code = >182 See_Comment H [Autom ated message] 9505441927) The system [employer] generated this result transmit tennille reference range : 0 - 5 HPF. The refe rence range was not u sed to interpret th is result as normal/abnormal . BACTERIA (test code = Few Negative A 6438634544) MUCOUS (test code = Slight Negative LPF A 5203026026) SQ EPITH (test code = See_Comment [Auto mated message] 9293450499) The system [employer] generated this result transmit tennille reference range : <=2 HPF. The refere nce range was not u sed to interpret th is result as normal/abnormal . WBC CLUMPS (test code = See_Comment H [Au tomated message] 1201007251) The system [employer] generated this result transmit tennille reference range : <=1 HPF. The refere nce range was not u sed to interpret th is result as normal/abnormal . HYAL CAST (test code = See_Comment H [Aut omated message] 9639893961) The system [employer] generated this result transmit tennille reference range : <=2 LPF. The refere nce range was not u sed to interpret th is result as normal/abnormal . Lab Interpretation (test Abnormal code = 24410-0) [facility]19550[facility] (ALB,T.PRO,BILI T,BU/BC,ALT,AST,ALK PHOS)2020-10-22 18:07:08 Test Item Value Reference Range Interpretation Comments TOTAL BILI (test code = 9514112839) 0.5 mg/dL 0.1-1.1 BILI UNCON (test code = 0912550822) 0.3 mg/dL 0.1-1.1 BILI CONJ (test code = 9258789510) 0.0 mg/dL 0.0-0.3 T PROTEIN (test code = 8947964244) 5.9 g/dL 6.3-8.2 L ALBUMIN (test code = 4650791369) 3.0 g/dL 3.5-5.0 L ALK PHOS (test code = 3836141103) 60 U/L 34-122 ALTv (test code = 1742-6) 35 U/L 5-50 AST(SGOT) (test code = 0743372778) 48 U/L 13-40 H Lab Interpretation (test code = Abnormal 00093-7) [facility]40034[facility] (ALB,T.PRO,BILI T,BU/BC,ALT,AST,ALK PHOS)2020-10-22 18:07:08 Test Item Value Reference Range Interpretation Comments TOTAL BILI (test code = 4161187386) 0.5 mg/dL 0.1-1.1 BILI UNCON (test code = 9264134378) 0.3 mg/dL 0.1-1.1 BILI CONJ (test code = 2211573082) 0.0 mg/dL 0.0-0.3 T PROTEIN (test code = 0658093473) 5.9 g/dL 6.3-8.2 L ALBUMIN (test code = 1996899181) 3.0 g/dL 3.5-5.0 L ALK PHOS (test code = 6810930235) 60 U/L 34-122 ALTv (test code = 1742-6) 35 U/L 5-50 AST(SGOT) (test code = 2819271876) 48 U/L 13-40 H Lab Interpretation (test code = Abnormal 43899-2) [facility] METABOLIC PANEL (NA, K, CL, CO2, GLUCOSE, BUN, CREATININE, CA)2020-10-22 18:07:08 Test Item Value Reference Range Interpretation Comments NA (test code = 137 mmol/L 135-145 6945644592) K (test code = 4.2 mmol/L 3.5-5.0 3523545888) CL (test code = 104 mmol/L 98-108 3191158193) CO2 TOTAL (test code = 23 mmol/L 23-31 6881600781) AGAP (test code = 2-16 4670495151) BUN (test code = 82 mg/dL 7-23 H 9955721580) GLUCOSE (test code = 84 mg/dL 70-110 5060586374) CREATININE (test code = 1.88 mg/dL 0.60-1.25 H 2045600079) CALCIUM (test code = 9.9 mg/dL 8.6-10.6 9678905208) eGFR (test code = mL/min/1.73m2 2476477300) JUAN LUIS (test code = JUAN LUIS) Association of Glomerular Filtration Rate (GFR) and Staging of Kidney Disease* + --+ --+ ------+| GFR (mL/min/1.73 m2) ?| With Kidney Damage ?| ?Without Kidney Damage+ --------+ --------+ +| ?>90 ?| ?Stage one ?| ? Normal ?+ ---+ ---+ -------+| ?60-89 ?| ?Stage two ?| ? Decreased GFR ? + --+ --+ ------+| ?30-59 ?| ?Stage three ?| ? Stage three ? + --+ --+ ------+| ?15-29 ?| ?Stage four ? | ? Stage four ?+ ---+ ---+ -------+| ?<15 (or dialysis) ? ?| ?Stage five ? | ? Stage five ?+ ---+ ---+ -------+ *Each stage assumes the associated GFR level has been in effect for at least three months. ?Stages 1 to 5, with or without kidney disease, indicate chronic kidney disease. Notes: Determination of stages one and two (with eGFR >59mL/min/1.73 m2) requires estimation of kidney damage for at least three months as defined by structural or functional abnormalities of the kidney, manifested by either:Pathological abnormalities or Markers of kidney damage (including abnormalities in the composition of the blood or urine or abnormalities in imaging tests). Lab Interpretation Abnormal (test code = 62267-5) [facility] (84744[facility] (ALB,T.PRO,BILI T,BU/BC,ALT,AST,ALK PHOS)2020-10-22 18:07:08 Test Item Value Reference Range Interpretation Comments TOTAL BILI (test code = 3337003532) 0.5 mg/dL 0.1-1.1 BILI UNCON (test code = 3670703300) 0.3 mg/dL 0.1-1.1 BILI CONJ (test code = 4306454085) 0.0 mg/dL 0.0-0.3 T PROTEIN (test code = 4284982067) 5.9 g/dL 6.3-8.2 L ALBUMIN (test code = 5967330879) 3.0 g/dL 3.5-5.0 L ALK PHOS (test code = 7112336210) 60 U/L 34-122 ALTv (test code = 1742-6) 35 U/L 5-50 AST(SGOT) (test code = 1846849202) 48 U/L 13-40 H Lab Interpretation (test code = Abnormal 18044-4) [facility] 17:54:11 Test Item Value Reference Range Interpretation Comments Fibrinogen (test code = 6860230884) 585 mg/dL 167-453 H Lab Interpretation (test code = Abnormal 41339-0) [facility] / [id number] 17:54:11 Test Item Value Reference Range Interpretation Comments PROTIME PATIENT (test See_Comment H [Auto mated message] code = 5964-2) The system The [employer] generated this result transmitted ref erence range: 10.1 - 1 2.6 Seconds. The reference range was not used to int erpret this result as normal/abnormal . INR (test code = 6301-6) Nor mal INR <1.1; Warfarin Therap eutic range 2.0 to 3. 0 or 2.5 to 3.5, dep ending upon the indica tions. Lab Interpretation (test Abnormal code = 11809-5) [facility] 20 + LACTIC [id number] 17:44:46 Test Item Value Reference Range Interpretation Comments PH (test code = 2) 7.35-7.45 H PCO2 (test code = See_Comment L [Automat ed 2926780163) message] The sy stem which generated this result transmitted reference range : 35 - 45 mmHg. The reference range was not used to interpret this result as normal/abnormal . PO2 (test code = See_Comment H [Automated 3708406785) message] The sy stem which generated this result transmitted reference range : 80 - 100 mmHg. The reference range was not used to interpret this result as normal/abnormal . HCO3 (test code = See_Comment L [Automate d 0015670705) message] The sy stem which generated this result transmitted reference range : 22 - 26 mEq/L. The reference range was not used to interpret this result as normal/abnormal . BE (test code = See_Comment [Automated 9494012127) message] The sy stem which generated this result transmitted reference range : -3.0 - 3.0 mEq/ L. The reference r christine was not used to interpret this result as normal/abnormal . THB (test code = 10.9 g/dL 13.5-18.0 L 5460686377) %O2HB (test code = 97.7 % 94.0-99.0 1289185419) %COHB ART (test code = 0.3 % 0.0-1.5 1629957323) %METHB ART (test code = 0.3 % 0.4-1.5 L 0555025087) VOL%O2 ART (test code = 15.1 % 15.0-23.0 1047718676) NA (test code = 134 mmol/L 135-145 L 8728001358) K+ (test code = 4.2 mmol/L 3.5-5.0 1970188949) AC CA IONZ (test code = 5.10 mg/dL 4.50-5.30 0856978641) GLUCOSE (test code = 84 mg/dL 70-110 1725876275) LACTIC ACID (test code 1.39 mmol/L 0.50-2.20 = 1024312961) Lab Interpretation Abnormal (test code = 68697-2) [facility] - Type and Screen expires at midnight on the 3rd day after it was drawn. A current Type and Screen is required when RBCs are requested. For all other blood products, a Type and Screen performed during the current hospitalization i...2020-05-03 21:04:13 Test Item Value Reference Range Interpretation Comments ABO & RH (test code A Positive Performe d at [facility] = 20) [facility] [address] [place], [place] [address]Toll Free: [phone] A No. [id number] IAT (test code = Negative Performed a t [facility] 1185) [facility] [address] [place], [place] [address]Toll Free: [phone] A No. [id number] [facility] [id number] 20:34:00 Test Item Value Reference Range Interpretation Comments TROPONIN I (test 0.034 ng/mL See_Comment [Automated code = 4203787310) message] The system which generated this result transmitted reference range : <=0.034. The reference range was not used to interpret this result as normal/abnormal . JUAN LUIS (test code = Equal or Less than JUAN LUIS) 0.034 ng/ml---Normal ?Note: Cardiac troponin begins to rise 3-4 hours after the onset of ischemia. Repeat in 4-6 hours if the sample was drawn within 3-4 hours of the onset of the symptom and found normal. Between 0.035 and 0.120 ng/mL--- Borderline. Questionable myocardial injury or necrosis ? ?Note: Serial measurement may be necessary to confirm or exclude the diagnosis of myocardial injury or necrosis; Clinical correlation (symptoms, EKGs, imaging studies, and others) required; Repeat in 4-6 hours if clinically indicated. ? Equal or Higher than 0.121 ng/mL---Abnormal. Myocardial Injury or Necrosis Likely ? Biotin has been reported to cause a negative bias, interpret results relative to patient's use of biotin. ? Lab Interpretation Normal (test code = 66739-2) [facility] [id number] 20:31:00 Test Item Value Reference Range Interpretation Comments NT-proBNP (test code 5460 pg/mL See_Comment H [Autom ated = 5098508294) message] The system which generated this result transmitted reference range : <=125. The reference range was not used to interpret this result as normal/abnormal . JUAN LUIS (test code = JUAN LUIS) Biotin has been reported to cause a negative bias, interpret results relative to patient's use of biotin. Lab Interpretation Abnormal (test code = 21610-6) [facility] (NA, K, CL, CO2, GLUCOSE, BUN, CREATININE, CA)2020-05-03 20:22:00 Test Item Value Reference Range Interpretation Comments NA (test code = 137 mmol/L 135-145 8245307812) K (test code = 4.2 mmol/L 3.5-5 5264169052) CL (test code = 100 mmol/L 98-108 9352391931) CO2 TOTAL (test code = 28 mmol/L 23-31 6069087016) AGAP (test code = 2-16 7089387305) BUN (test code = 55 mg/dL 7-23 H 6676942305) GLUCOSE (test code = 141 mg/dL 70-110 H 2412743016) CREATININE (test code = 1.76 mg/dL 0.6-1.25 H 8269411072) CALCIUM (test code = 9.4 mg/dL 8.6-10.6 7938693971) eGFR Calculation mL/min/1.73m2 (Non-) (test code = 6368779331) eGFR Calculation mL/min/1.73m2 () (test code = 1499224374) JUAN LUIS (test code = JUAN LUIS) Association of Glomerular Filtration Rate (GFR) and Staging of Kidney Disease* + --+ --+ ------+| GFR (mL/min/1.73 m2) ?| With Kidney Damage ?| ?Without Kidney Damage+ --------+ --------+ +| ?>90 ?| ?Stage one ?| ? Normal ?+ ---+ ---+ -------+| ?60-89 ?| ?Stage two ?| ? Decreased GFR ? + --+ --+ ------+| ?30-59 ?| ?Stage three ?| ? Stage three ? + --+ --+ ------+| ?15-29 ?| ?Stage four ? | ? Stage four ?+ ---+ ---+ -------+| ?<15 (or dialysis) ? ?| ?Stage five ? | ? Stage five ?+ ---+ ---+ -------+ *Each stage assumes the associated GFR level has been in effect for at least three months. ?Stages 1 to 5, with or without kidney disease, indicate chronic kidney disease. Notes: Determination of stages one and two (with eGFR >59mL/min/1.73 m2) requires estimation of kidney damage for at least three months as defined by structural or functional abnormalities of the kidney, manifested by either:Pathological abnormalities or Markers of kidney damage (including abnormalities in the composition of the blood or urine or abnormalities in imaging tests). Lab Interpretation Abnormal (test code = 18119-1) [facility] (ALB, T.PRO, BILI T, BU/BC, ALT, AST, ALK PHOS)2020-05-03 20:22:00 Test Item Value Reference Range Interpretation Comments TOTAL BILI (test code = 1492394969) 0.5 mg/dL 0.1-1.1 BILI UNCON (test code = 2052822014) 0.5 mg/dL 0.1-1.1 BILI CONJ (test code = 2722801820) 0.0 mg/dL 0-0.3 T PROTEIN (test code = 3963235127) 6.5 g/dL 6.3-8.2 ALBUMIN (test code = 8426991573) 3.6 g/dL 3.5-5 ALK PHOS (test code = 1164363555) 62 U/L 34-122 ALTv (test code = 1742-6) 49 U/L 5-50 AST(SGOT) (test code = 4966978469) 50 U/L 13-40 H Lab Interpretation (test code = Abnormal 59500-2) [facility] with [id number] 20:12:00 Test Item Value Reference Range Interpretation Comments WBC (test code = See_Comment [Automated 6690-2) message] The sy stem which generated this result transmitted reference range : 4.20 - 10.70 10*3/?L. The reference range was not used to interpret this result as normal/abnormal . RBC (test code = See_Comment L [Automated 789-8) message] The sy stem which generated this result transmitted reference range : 4.26 - 5.52 10*6/?L. The reference range was not used to interpret this result as normal/abnormal . HGB (test code = 7.9 g/dL 12.2-16.4 L 718-7) HCT (test code = 25.3 % 38.4-49.3 L 4544-3) MCV (test code = 65.9 fL 81.7-95.6 L 787-2) MCH (test code = 20.6 pg 26.1-32.7 L 785-6) MCHC (test code = 31.2 g/dL 31.2-35 786-4) RDW-SD (test code = 35.9 fL 38.5-51.6 L 17929-8) RDW-CV (test code = 15.5 % 12.1-15.4 H 788-0) PLT (test code = See_Comment [Automated 777-3) message] The sy stem which generated this result transmitted reference range : 150 - 328 10*3/ ?L. The reference r christien was not used to interpret this result as normal/abnormal . MPV (test code = 12.7 fL 9.8-13 47029-5) IPF % (test code = 3.0 % 1.2-10.7 Platelet count 8267294110) measured by fluorescence method. NRBC/100 WBC (test See_Comment [Automat ed code = 8092264027) message] The system which generated this result transmitted reference range : 0.0 - 10.0 /100 WBCs. The refer ence range was not u sed to interpret th is result as normal/abnormal . NRBC x10^3 (test code <0.01 See_Comment [Auto mated = 6391685301) message] The s ystem which generated this result transmitted reference range : 10*3/?L. The reference range was not used to interpret this result as normal/abnormal . GRAN MAT (NEUT) % 65.3 % (test code = 770-8) IMM GRAN % (test code 0.30 % = 1594047547) LYMPH % (test code = 19.0 % 736-9) MONO % (test code = 8.6 % 5905-5) EOS % (test code = 6.2 % 713-8) BASO % (test code = 0.6 % 706-2) GRAN MAT x10^3(ANC) 5.10 10*3/uL 1.99-6.95 (test code = 3702370647) IMM GRAN x10^3 (test <0.03 0-0.06 code = 6689336702) LYMPH x10^3 (test code 1.48 10*3/uL 1.09-3.23 = 731-0) MONO x10^3 (test code 0.67 10*3/uL 0.36-1.02 = 742-7) EOS x10^3 (test code = 0.48 10*3/uL 0.06-0.53 711-2) BASO x10^3 (test code 0.05 10*3/uL 0.01-0.09 = 704-7) Lab Interpretation Abnormal (test code = 44930-0) [facility] GLUCOSE (AUTOMATED)2019-10-28 13:00:00 Test Item Value Reference Range Interpretation Comments POCT GLU (test code = 9146509576) 89 mg/dL 70-110 Lab Interpretation (test code = Normal 18752-0) [facility] GLUCOSE (AUTOMATED)2019-10-28 10:36:00 Test Item Value Reference Range Interpretation Comments POCT GLU (test code = 4007235938) 223 mg/dL 70-110 H Lab Interpretation (test code = Abnormal 47418-9) [facility] [id number] 10:09:00 Test Item Value Reference Range Interpretation Comments NT-proBNP (test code 61253 pg/mL See_Comment H [Autom ated = 3412052680) message] The system which generated this result transmitted reference range : <=125. The reference range was not used to interpret this result as normal/abnormal . JUAN LUIS (test code = JUAN LUIS) Biotin has been reported to cause a negative bias, interpret results relative to patient's use of biotin. Lab Interpretation Abnormal (test code = 93239-4) [facility]. METABOLIC PANEL (30417)2019-10-28 10:06:00 Test Item Value Reference Range Interpretation Comments NA (test code = 136 mmol/L 135-145 7958049493) K (test code = 5.0 mmol/L 3.5-5 4268021982) CL (test code = 107 mmol/L 98-108 7689615398) CO2 TOTAL (test code = 27 mmol/L 23-31 4352624419) AGAP (test code = 2-16 3968203492) BUN (test code = 50 mg/dL 7-23 H 1131600190) GLUCOSE (test code = 82 mg/dL 70-110 0795538338) CREATININE (test code = 1.76 mg/dL 0.6-1.25 H 6148443730) TOTAL BILI (test code = 0.3 mg/dL 0.1-1.1 6726553438) CALCIUM (test code = 8.9 mg/dL 8.6-10.6 7121747966) T PROTEIN (test code = 5.8 g/dL 6.3-8.2 L 0178017383) ALBUMIN (test code = 3.0 g/dL 3.5-5 L 7461399497) ALK PHOS (test code = 56 U/L 34-122 0650787805) ALTv (test code = 25 U/L 5-50 1742-6) AST(SGOT) (test code = 32 U/L 13-40 5930071332) eGFR Calculation mL/min/1.73m2 (Non-) (test code = 4121216734) eGFR Calculation mL/min/1.73m2 () (test code = 1733303909) JUAN LUIS (test code = JUAN LUIS) Association of Glomerular Filtration Rate (GFR) and Staging of Kidney Disease* + --+ --+ ------+| GFR (mL/min/1.73 m2) ?| With Kidney Damage ?| ?Without Kidney Damage+ --------+ --------+ +| ?>90 ?| ?Stage one ?| ? Normal ?+ ---+ ---+ -------+| ?60-89 ?| ?Stage two ?| ? Decreased GFR ? + --+ --+ ------+| ?30-59 ?| ?Stage three ?| ? Stage three ? + --+ --+ ------+| ?15-29 ?| ?Stage four ? | ? Stage four ?+ ---+ ---+ -------+| ?<15 (or dialysis) ? ?| ?Stage five ? | ? Stage five ?+ ---+ ---+ -------+ *Each stage assumes the associated GFR level has been in effect for at least three months. ?Stages 1 to 5, with or without kidney disease, indicate chronic kidney disease. Notes: Determination of stages one and two (with eGFR >59mL/min/1.73 m2) requires estimation of kidney damage for at least three months as defined by structural or functional abnormalities of the kidney, manifested by either:Pathological abnormalities or Markers of kidney damage (including abnormalities in the composition of the blood or urine or abnormalities in imaging tests). Lab Interpretation Abnormal (test code = 89531-1) [facility] [id number] 10:06:00 Test Item Value Reference Range Interpretation Comments URIC ACID (test code = 1911946038) 6.2 mg/dL 3.6-8 Lab Interpretation (test code = Normal 49257-2) [facility] WITH [id number] 09:42:00 Test Item Value Reference Range Interpretation Comments WBC (test code = See_Comment [Automated 6110-2) message] The sy stem which generated this result transmitted reference range : 4.20 - 10.70 10*3/?L. The reference range was not used to interpret this result as normal/abnormal . RBC (test code = See_Comment L [Automated 347-8) message] The sy stem which generated this result transmitted reference range : 4.26 - 5.52 10*6/?L. The reference range was not used to interpret this result as normal/abnormal . HGB (test code = 8.2 g/dL 12.2-16.4 L 718-7) HCT (test code = 26.0 % 38.4-49.3 L 4544-3) MCV (test code = 71.8 fL 81.7-95.6 L 787-2) MCH (test code = 22.7 pg 26.1-32.7 L 785-6) MCHC (test code = 31.5 g/dL 31.2-35 786-4) RDW-SD (test code = 47.8 fL 38.5-51.6 10706-6) RDW-CV (test code = 18.8 % 12.1-15.4 H 788-0) PLT (test code = See_Comment [Automated 777-3) message] The sy stem which generated this result transmitted reference range : 150 - 328 10*3/ ?L. The reference r christine was not used to interpret this result as normal/abnormal . MPV (test code = 11.6 fL 9.8-13 24170-0) IPF % (test code = 2.4 % 1.2-10.7 Platelet count 0959311483) measured by fluorescence method. NRBC/100 WBC (test See_Comment [Automat ed code = 9235796528) message] The system which generated this result transmitted reference range : 0.0 - 10.0 /100 WBCs. The refer ence range was not u sed to interpret th is result as normal/abnormal . NRBC x10^3 (test code <0.01 See_Comment [Auto mated = 6779890479) message] The s ystem which generated this result transmitted reference range : 10*3/?L. The reference range was not used to interpret this result as normal/abnormal . GRAN MAT (NEUT) % 55.9 % (test code = 770-8) IMM GRAN % (test code 0.30 % = 6677899884) LYMPH % (test code = 28.2 % 736-9) MONO % (test code = 9.1 % 5905-5) EOS % (test code = 5.3 % 713-8) BASO % (test code = 1.2 % 706-2) GRAN MAT x10^3(ANC) 3.88 10*3/uL 1.99-6.95 (test code = 8585867980) IMM GRAN x10^3 (test <0.03 0-0.06 code = 9554259027) LYMPH x10^3 (test code 1.96 10*3/uL 1.09-3.23 = 731-0) MONO x10^3 (test code 0.63 10*3/uL 0.36-1.02 = 742-7) EOS x10^3 (test code = 0.37 10*3/uL 0.06-0.53 711-2) BASO x10^3 (test code 0.08 10*3/uL 0.01-0.09 = 704-7) Lab Interpretation Abnormal (test code = 01327-3) [facility] GLUCOSE (AUTOMATED)2019-10-28 01:57:00 Test Item Value Reference Range Interpretation Comments POCT GLU (test code = 3895124075) 112 mg/dL 70-110 H Lab Interpretation (test code = Abnormal 92452-3) [facility] GLUCOSE (AUTOMATED)2019-10-27 16:31:00 Test Item Value Reference Range Interpretation Comments POCT GLU (test code = 0590701539) 142 mg/dL 70-110 H Lab Interpretation (test code = Abnormal 48058-3) [facility] GLUCOSE (AUTOMATED)2019-10-27 16:31:00 Test Item Value Reference Range Interpretation Comments POCT GLU (test code = 5665466961) 138 mg/dL 70-110 H Lab Interpretation (test code = Abnormal 11702-5) [facility] [id number] 16:06:00 Test Item Value Reference Range Interpretation Comments WBC (test code = See_Comment [Automated message] 6690-2) The system [employer] generated this result transmitted ref erence range: 4.20 - 1 0.70 10*3/?L. The reference range was not used to int erpret this result as normal/abnormal . RBC (test code = 789-8) See_Comment L [Au tomated message] The system [employer] generated this result transmitted ref erence range: 4.26 - 5 .52 10*6/?L. The reference range was not used to int erpret this result as normal/abnormal . HGB (test code = 718-7) 7.8 g/dL 12.2-16.4 L HCT (test code = 24.6 % 38.4-49.3 L 4544-3) MCH (test code = 785-6) 22.7 pg 26.1-32.7 L MCV (test code = 787-2) 71.5 fL 81.7-95.6 L MCHC (test code = 31.7 g/dL 31.2-35 786-4) PLT (test code = 777-3) See_Comment [Au tomated message] The system [facility] generated this result transmitted ref erence range: 150 - 32 8 10*3/?L. The reference range was not used to int erpret this result as normal/abnormal . MPV (test code = 11.4 fL 9.8-13 81389-6) RDW-CV (test code = 19.0 % 12.1-15.4 H 788-0) RDW-SD (test code = 48.5 fL 38.5-51.6 47658-3) NRBC x10^3 (test code = <0.01 See_Comment [Au tomated message] 8267905274) The system [employer] generated this result transmitted ref erence range: 10*3/?L. The reference range was not used to int erpret this result as normal/abnormal . NRBC/100 WBC (test code See_Comment [Au tomated message] = 2976492377) The system [facility] generated this result transmitted ref erence range: 0.0 - 10 .0 /100 WBCs. The reference range was not used to int erpret this result as normal/abnormal . IPF % (test code = 2.5 % 1.2-10.7 Platelet count 6339206013) measured by fluorescence me thod. Lab Interpretation Abnormal (test code = 80852-6) [facility] [id number] 15:51:00 Test Item Value Reference Range Interpretation Comments TROPONIN I (test 0.043 ng/mL See_Comment H [Automated code = 6865378131) message] The system which generated this result transmitted reference range : <=0.034. The reference range was not used to interpret this result as normal/abnormal . JUAN LUIS (test code = Equal or Less than JUAN LUIS) 0.034 ng/ml---Normal ?Note: Cardiac troponin begins to rise 3-4 hours after the onset of ischemia. Repeat in 4-6 hours if the sample was drawn within 3-4 hours of the onset of the symptom and found normal. Between 0.035 and 0.120 ng/mL--- Borderline. Questionable myocardial injury or necrosis ? ?Note: Serial measurement may be necessary to confirm or exclude the diagnosis of myocardial injury or necrosis; Clinical correlation (symptoms, EKGs, imaging studies, and others) required; Repeat in 4-6 hours if clinically indicated. ? Equal or Higher than 0.121 ng/mL---Abnormal. Myocardial Injury or Necrosis Likely ? Biotin has been reported to cause a negative bias, interpret results relative to patient's use of biotin. ? Lab Interpretation Abnormal (test code = 37080-7) [facility], URINE [id number] 15:40:00 Test Item Value Reference Range Interpretation Comments UREA N UR (test code = 3289343556) 531 mg/dL [facility]2019-10-27 12:43:00 Test Item Value Reference Range Interpretation Comments POCT GLU (test code = 1184886317) 140 mg/dL 70-110 H Lab Interpretation (test code = Abnormal 15297-6) [facility]PROTE[facility] CREAT RATIO URINE [id number] 11:43:00 Test Item Value Reference Range Interpretation Comments T. PROT U (test code = 2888-6) 584 mg/dL CREAT U (test code = 3019035761) 28.0 mg/dL Protein/Creatinine Ratio Urine 0.0-2.0 H (test code = 5974957202) Lab Interpretation (test code = Abnormal 74406-1) [facility]IS2020-[facility]-14 11:12:00 Test Item Value Reference Range Interpretation Comments APPEARANCE (test code = Clear Clear 7174835188) COLOR (test code = Yellow Yellow 4334683425) PH (test code = 4.8-8.0 3907974699) SP GRAVITY (test code = 1.003-1.030 3093629548) GLU U QUAL (test code = 50 mg/dL Normal A 4939806775) BLOOD (test code = Negative Negative 4779673790) KETONES (test code = Negative Negative 7660131436) PROTEIN (test code = 100 mg/dL Negative A 2887-8) UROBILIN (test code = Normal Normal 1888317284) BILIRUBIN (test code = Negative Negative 0077322060) NITRITE (test code = Negative Negative 3203460076) LEUK SILVIO (test code = Negative Negative 4007379597) RBC/HPF (test code = See_Comment H [Autom ated message] 6124900340) The system [employer] generated this result transmit tennille reference range : 0 - 3 HPF. The refe rence range was not u sed to interpret th is result as normal/abnormal . WBC/HPF (test code = See_Comment [Autom ated message] 7151678811) The system [employer] generated this result transmit tennille reference range : 0 - 5 HPF. The refe rence range was not u sed to interpret th is result as normal/abnormal . BACTERIA (test code = Few Negative A 5389574651) MUCOUS (test code = Slight Negative LPF A 2903834544) SQ EPITH (test code = <1 HPF 5163050791) HYAL CAST (test code = See_Comment H [Aut omated message] 4203923118) The system [employer] generated this result transmit tennille reference range : <=2 LPF. The refere nce range was not u sed to interpret th is result as normal/abnormal . Lab Interpretation (test Abnormal code = 93685-7) [facility] HospitalSODI[facility], URINE [id number] 11:07:00 Test Item Value Reference Range Interpretation Comments NA URINE (test code = 8661495989) 45 mmol/L [facility]2019-10-27 10:49:00 Test Item Value Reference Range Interpretation Comments POCT GLU (test code = 9983762702) 163 mg/dL 70-110 H Lab Interpretation (test code = Abnormal 80175-6) [facility] HospitalTROPONIN [id number] 10:10:00 Test Item Value Reference Range Interpretation Comments TROPONIN I (test 0.035 ng/mL See_Comment H [Automated code = 0521990183) message] The system which generated this result transmitted reference range : <=0.034. The reference range was not used to interpret this result as normal/abnormal . JUAN LUIS (test code = Equal or Less than JUAN LUIS) 0.034 ng/ml---Normal ?Note: Cardiac troponin begins to rise 3-4 hours after the onset of ischemia. Repeat in 4-6 hours if the sample was drawn within 3-4 hours of the onset of the symptom and found normal. Between 0.035 and 0.120 ng/mL--- Borderline. Questionable myocardial injury or necrosis ? ?Note: Serial measurement may be necessary to confirm or exclude the diagnosis of myocardial injury or necrosis; Clinical correlation (symptoms, EKGs, imaging studies, and others) required; Repeat in 4-6 hours if clinically indicated. ? Equal or Higher than 0.121 ng/mL---Abnormal. Myocardial Injury or Necrosis Likely ? Biotin has been reported to cause a negative bias, interpret results relative to patient's use of biotin. ? Lab Interpretation Abnormal (test code = 99062-6) [facility] HospitalN-TERMINAL [id number] 10:07:00 Test Item Value Reference Range Interpretation Comments NT-proBNP (test code 8960 pg/mL See_Comment H [Autom ated = 1035731010) message] The system which generated this result transmitted reference range : <=125. The reference range was not used to interpret this result as normal/abnormal . JUAN LUIS (test code = JUAN LUIS) Biotin has been reported to cause a negative bias, interpret results relative to patient's use of biotin. Lab Interpretation Abnormal (test code = 68348-4) [facility] HospitalCOMP. METABOLIC PANEL (25434)2019-10-27 10:03:00 Test Item Value Reference Range Interpretation Comments NA (test code = 136 mmol/L 135-145 6969076109) K (test code = 5.2 mmol/L 3.5-5 H 4236816669) CL (test code = 106 mmol/L 98-108 4433708751) CO2 TOTAL (test code = 25 mmol/L 23-31 0770595187) AGAP (test code = 2-16 1587780752) BUN (test code = 54 mg/dL 7-23 H 7652647786) GLUCOSE (test code = 139 mg/dL 70-110 H 6248116195) CREATININE (test code = 1.42 mg/dL 0.6-1.25 H 3628276325) TOTAL BILI (test code = 0.2 mg/dL 0.1-1.7 2910073145) CALCIUM (test code = 8.7 mg/dL 8.6-10.6 8092146910) T PROTEIN (test code = 5.8 g/dL 6.3-8.2 L 5201195418) ALBUMIN (test code = 2.9 g/dL 3.5-5 L 8475246158) ALK PHOS (test code = 53 U/L 34-122 6344729139) ALTv (test code = 21 U/L 5-50 1742-6) AST(SGOT) (test code = 30 U/L 13-40 3991097924) eGFR Calculation mL/min/1.73m2 (Non-) (test code = 1020970033) eGFR Calculation mL/min/1.73m2 () (test code = 6449722232) JUAN LUIS (test code = JUAN LUIS) Association of Glomerular Filtration Rate (GFR) and Staging of Kidney Disease* + --+ --+ ------+| GFR (mL/min/1.73 m2) ?| With Kidney Damage ?| ?Without Kidney Damage+ --------+ --------+ +| ?>90 ?| ?Stage one ?| ? Normal ?+ ---+ ---+ -------+| ?60-89 ?| ?Stage two ?| ? Decreased GFR ? + --+ --+ ------+| ?30-59 ?| ?Stage three ?| ? Stage three ? + --+ --+ ------+| ?15-29 ?| ?Stage four ? | ? Stage four ?+ ---+ ---+ -------+| ?<15 (or dialysis) ? ?| ?Stage five ? | ? Stage five ?+ ---+ ---+ -------+ *Each stage assumes the associated GFR level has been in effect for at least three months. ?Stages 1 to 5, with or without kidney disease, indicate chronic kidney disease. Notes: Determination of stages one and two (with eGFR >59mL/min/1.73 m2) requires estimation of kidney damage for at least three months as defined by structural or functional abnormalities of the kidney, manifested by either:Pathological abnormalities or Markers of kidney damage (including abnormalities in the composition of the blood or urine or abnormalities in imaging tests). Lab Interpretation Abnormal (test code = 30835-8) [facility] HospitalMAGNESIUM2020-04-14 10:01:00 Test Item Value Reference Range Interpretation Comments MAGNESIUM (test code = 6982604169) 2.5 mg/dL 1.7-2.4 H Lab Interpretation (test code = Abnormal 50283-0) [facility] HospitalURIC [id number] 10:00:00 Test Item Value Reference Range Interpretation Comments URIC ACID (test code = 2527880491) 5.7 mg/dL 3.6-8 Lab Interpretation (test code = Normal 75865-3) [facility] HospitalSEDIMENTATION [id number] 09:58:00 Test Item Value Reference Range Interpretation Comments ESR (test code = See_Comment H [Automated message] 7340859703) The system [employer] generated this result transmitted ref erence range: 0 - 10 m m/HR. The reference r christine was not used to interpret this result as normal/abnor mal. Lab Interpretation (test Abnormal code = 44774-3) [facility] HospitalFERRITIN [id number] 09:45:00 Test Item Value Reference Range Interpretation Comments FERRITIN (test code = 829.0 ng/mL 18-464 H 8837464623) JUAN LUIS (test code = JUAN LUIS) Biotin has been reported to cause a negative bias, interpret results relative to patient's use of biotin. Lab Interpretation (test Abnormal code = 49897-8) [facility] HospitalCBC WITH [id number] 09:31:00 Test Item Value Reference Range Interpretation Comments WBC (test code = See_Comment [Automated 6690-2) message] The sy stem which generated this result transmitted reference range : 4.20 - 10.70 10*3/?L. The reference range was not used to interpret this result as normal/abnormal . RBC (test code = See_Comment L [Automated 789-8) message] The sy stem which generated this result transmitted reference range : 4.26 - 5.52 10*6/?L. The reference range was not used to interpret this result as normal/abnormal . HGB (test code = 7.3 g/dL 12.2-16.4 L 718-7) HCT (test code = 22.9 % 38.4-49.3 L 4544-3) MCV (test code = 69.4 fL 81.7-95.6 L 787-2) MCH (test code = 22.1 pg 26.1-32.7 L 785-6) MCHC (test code = 31.9 g/dL 31.2-35 786-4) RDW-SD (test code = 46.8 fL 38.5-51.6 77182-8) RDW-CV (test code = 19.1 % 12.1-15.4 H 788-0) PLT (test code = See_Comment [Automated 777-3) message] The sy stem which generated this result transmitted reference range : 150 - 328 10*3/ ?L. The reference r christine was not used to interpret this result as normal/abnormal . MPV (test code = 10.9 fL 9.8-13 78796-1) NRBC/100 WBC (test See_Comment [Automat ed code = 8778067907) message] The system which generated this result transmitted reference range : 0.0 - 10.0 /100 WBCs. The refer ence range was not u sed to interpret th is result as normal/abnormal . NRBC x10^3 (test code <0.01 See_Comment [Auto mated = 7249383786) message] The s ystem which generated this result transmitted reference range : 10*3/?L. The reference range was not used to interpret this result as normal/abnormal . GRAN MAT (NEUT) % 79.8 % (test code = 770-8) IMM GRAN % (test code 0.20 % = 9839596725) LYMPH % (test code = 11.9 % 736-9) MONO % (test code = 7.0 % 5905-5) EOS % (test code = 0.6 % 713-8) BASO % (test code = 0.5 % 706-2) GRAN MAT x10^3(ANC) 7.01 10*3/uL 1.99-6.95 H (test code = 8923650566) IMM GRAN x10^3 (test <0.03 0-0.06 code = 0905212746) LYMPH x10^3 (test code 1.04 10*3/uL 1.09-3.23 L = 731-0) MONO x10^3 (test code 0.61 10*3/uL 0.36-1.02 = 742-7) EOS x10^3 (test code = 0.05 10*3/uL 0.06-0.53 L 711-2) BASO x10^3 (test code 0.04 10*3/uL 0.01-0.09 = 704-7) Lab Interpretation Abnormal (test code = 93545-6) [facility] [id number] 09:24:00 Test Item Value Reference Range Interpretation Comments IRON (test code = 9897902562) 46 ug/dL 50-160 L TIBC (test code = 5304153803) 256 ug/dL 250-410 % FE SAT (test code = 0752143437) 18 % 20-50 L Lab Interpretation (test code = Abnormal 90821-2) [facility] [id number] 09:22:00 Test Item Value Reference Range Interpretation Comments TROPONIN I (test 0.040 ng/mL See_Comment H [Automated code = 9684905289) message] The system which generated this result transmitted reference range : <=0.034. The reference range was not used to interpret this result as normal/abnormal . JUAN LUIS (test code = Equal or Less than JUAN LUIS) 0.034 ng/ml---Normal ?Note: Cardiac troponin begins to rise 3-4 hours after the onset of ischemia. Repeat in 4-6 hours if the sample was drawn within 3-4 hours of the onset of the symptom and found normal. Between 0.035 and 0.120 ng/mL--- Borderline. Questionable myocardial injury or necrosis ? ?Note: Serial measurement may be necessary to confirm or exclude the diagnosis of myocardial injury or necrosis; Clinical correlation (symptoms, EKGs, imaging studies, and others) required; Repeat in 4-6 hours if clinically indicated. ? Equal or Higher than 0.121 ng/mL---Abnormal. Myocardial Injury or Necrosis Likely ? Biotin has been reported to cause a negative bias, interpret results relative to patient's use of biotin. ? Lab Interpretation Abnormal (test code = 87188-9) [facility] HospitalGLYCOSYLATED HEMOGLOBIN (A1C)2019-10-27 09:18:00 Test Item Value Reference Interpretation Comments Range HGB A1C (test code = See_Comment [Autom ated 4548-4) message] The system which generated this result transmitted reference range : 4.0 - 6.0 % NGSP. The reference range was not used to interpret this result as normal/abnormal . JUAN LUIS (test code = %A1C (NGSP) JUAN LUIS) Interpretation (ADA)4.8-5.6 ? ? Normal or (Non-Diabetic Range)5.7-6.4 ? ? Increased Risk (Pre-Diabetic)>6.5 ?Diabetes Indicated Lab Interpretation Normal (test code = 90364-1) [facility]UR[facility] [id number] 09:13:00 Test Item Value Reference Range Interpretation Comments URIC ACID (test code = 6877747526) 6.2 mg/dL 3.6-8 Lab Interpretation (test code = Normal 49230-6) [facility] HospitalHEPATIC FUNCTION PANEL (95529) (ALB,T.PRO,BILI T,BU/BC,ALT,AST,ALK PHOS)2019-10-27 09:10:00 Test Item Value Reference Range Interpretation Comments TOTAL BILI (test code = 0213694414) 0.2 mg/dL 0.1-1.1 BILI UNCON (test code = 8305064150) 0.4 mg/dL 0.1-1.1 BILI CONJ (test code = 2976109714) 0.0 mg/dL 0-0.3 T PROTEIN (test code = 3150168507) 7.6 g/dL 6.3-8.2 ALBUMIN (test code = 0390434830) 4.0 g/dL 3.5-5 ALK PHOS (test code = 9272990413) 66 U/L 34-122 ALTv (test code = 1742-6) 29 U/L 5-50 AST(SGOT) (test code = 3703482711) 106 U/L 13-40 H Lab Interpretation (test code = Abnormal 70711-4) [facility] HospitalLIPID PANEL (80966)(TOTAL CHOLESTEROL, TRIGLYCERIDES, HDL)2019-10-27 09:10:00 Test Item Value Reference Range Interpretation Comments CHOL (test code = 122 mg/dL 120-200 7140134754) HDL (test code = 68 mg/dL >40 0764631711) HDLC RATIO (test code = See_Comment [Au tomated message] 1574153772) The system [employer] generated this result transmit tennille reference range : <=5.0. The refe rence range was not u sed to interpret th is result as normal/abnormal . TRIG (test code = 31 mg/dL 30-170 8101262121) LDL CHOL (test code = 48 mg/dL See_Comment [Auto mated message] 78422-5) The system [employer] generated this result transmit tennille reference range : <=160. The refe rence range was not u sed to interpret th is result as normal/abnormal . VLDL (test code = 6 mg/dL 5-60 8262552408) Lab Interpretation (test Normal code = 78025-5) [facility] HospitalCREATINE [id number] 09:10:00 Test Item Value Reference Range Interpretation Comments CK (test code = 2454332519) 174 U/L 33-194 Lab Interpretation (test code = Normal 90098-4) [facility] HospitalLIPASE2020-04-14 09:10:00 Test Item Value Reference Range Interpretation Comments LIPASE (test code = 2746746069) 115 U/L 0-220 Lab Interpretation (test code = Normal 30790-9) [facility]MAGNESIUM2020-04-14 09:10:00 Test Item Value Reference Range Interpretation Comments MAGNESIUM (test code = 6849799069) 2.7 mg/dL 1.7-2.4 H Lab Interpretation (test code = Abnormal 04212-5) [facility]PHOSPHORUS2020-04-14 09:10:00 Test Item Value Reference Range Interpretation Comments PHOSPHORUS (test code = 4543446124) 4.4 mg/dL 2.5-5 Lab Interpretation (test code = Normal 76514-4) [facility] [id number] 09:09:00 Test Item Value Reference Range Interpretation Comments URIC ACID (test code = 7787869069) 6.3 mg/dL 3.6-8 Lab Interpretation (test code = Normal 79273-2) [facility] GLUCOSE (AUTOMATED)2019-10-27 08:46:00 Test Item Value Reference Range Interpretation Comments POCT GLU (test code = 2067009278) 165 mg/dL 70-110 H Lab Interpretation (test code = Abnormal 44468-0) [facility] GLUCOSE (AUTOMATED)2019-10-27 06:48:00 Test Item Value Reference Range Interpretation Comments POCT GLU (test code = 0894664829) 103 mg/dL 70-110 Lab Interpretation (test code = Normal 65892-5) [facility] GLUCOSE (AUTOMATED)2019-10-27 05:32:00 Test Item Value Reference Range Interpretation Comments POCT GLU (test code = 5134860840) 82 mg/dL 70-110 Lab Interpretation (test code = Normal 73256-6) [facility] HospitalCORONAVIRUS COVID-19 [id number] 04:55:00 Test Item Value Reference Range Interpretation Comments SARS-CoV-2 (test code = Not Detected Not Detected 70647-1) JUAN LUIS (test code = JUAN LUIS) ID NOW COVID-19 Assay is an isothermal nucleic acid amplification test intended for the qualitative detection of nucleic acid from SARS-CoV-2 viral RNA in nasopharyngeal (TELEVISION MECH[employer]IC) specimens. It is used under Emergency Use Authorization (EUA) by FDA. The limit of detection (LOD) of the assay is 125 Genome Equivalents/mL. A positive result is indicative of the presence of SARS-CoV-2 RNA. ?Clinical correlation with patient history and other diagnostic information is necessary to determine patient infection status. A negative (Not Detected) result does not preclude SARS-CoV-2 infection. Clinical correlation with patient history and other diagnostic information should be used in patient management decisions. Invalid: Please collect a new specimen for repeat patient testing if clinically indicated. Lab Interpretation Normal (test code = 28089-3) [facility] WITH [id number] 04:50:00 Test Item Value Reference Range Interpretation Comments WBC (test code = See_Comment [Automated 6690-2) message] The sy stem which generated this result transmitted reference range : 4.20 - 10.70 10*3/?L. The reference range was not used to interpret this result as normal/abnormal . RBC (test code = See_Comment L [Automated 789-8) message] The sy stem which generated this result transmitted reference range : 4.26 - 5.52 10*6/?L. The reference range was not used to interpret this result as normal/abnormal . HGB (test code = 9.0 g/dL 12.2-16.4 L 718-7) HCT (test code = 28.8 % 38.4-49.3 L 4544-3) MCV (test code = 72.4 fL 81.7-95.6 L 787-2) MCH (test code = 22.6 pg 26.1-32.7 L 785-6) MCHC (test code = 31.3 g/dL 31.2-35 786-4) RDW-SD (test code = 49.4 fL 38.5-51.6 94776-6) RDW-CV (test code = 19.4 % 12.1-15.4 H 788-0) PLT (test code = See_Comment [Automated 777-3) message] The sy stem which generated this result transmitted reference range : 150 - 328 10*3/ ?L. The reference r christine was not used to interpret this result as normal/abnormal . MPV (test code = 11.8 fL 9.8-13 62063-2) IPF % (test code = 2.6 % 1.2-10.7 Platelet count 0950814756) measured by fluorescence method. NRBC/100 WBC (test See_Comment [Automat ed code = 4031100843) message] The system which generated this result transmitted reference range : 0.0 - 10.0 /100 WBCs. The refer ence range was not u sed to interpret th is result as normal/abnormal . NRBC x10^3 (test code <0.01 See_Comment [Auto mated = 5122550733) message] The s ystem which generated this result transmitted reference range : 10*3/?L. The reference range was not used to interpret this result as normal/abnormal . GRAN MAT (NEUT) % 74.7 % (test code = 770-8) IMM GRAN % (test code 0.40 % = 3340835565) LYMPH % (test code = 11.6 % 736-9) MONO % (test code = 10.8 % 5905-5) EOS % (test code = 1.9 % 713-8) BASO % (test code = 0.6 % 706-2) GRAN MAT x10^3(ANC) 7.51 10*3/uL 1.99-6.95 H (test code = 4289455292) IMM GRAN x10^3 (test 0.04 10*3/uL 0-0.06 code = 3978083341) LYMPH x10^3 (test code 1.16 10*3/uL 1.09-3.23 = 731-0) MONO x10^3 (test code 1.08 10*3/uL 0.36-1.02 H = 742-7) EOS x10^3 (test code = 0.19 10*3/uL 0.06-0.53 711-2) BASO x10^3 (test code 0.06 10*3/uL 0.01-0.09 = 704-7) Lab Interpretation Abnormal (test code = 94645-8) [facility])2019-10-27 04:33:00 Test Item Value Reference Range Interpretation Comments POCT GLU (test code = 1998663689) 51 mg/dL 70-110 L Lab Interpretation (test code = Abnormal 66045-0) [facility] METABOLIC PANEL (NA, K, CL, CO2, GLUCOSE, BUN, CREATININE, CA)2019-10-27 03:51:00 Test Item Value Reference Range Interpretation Comments NA (test code = 140 mmol/L 135-145 2316497245) K (test code = 4.7 mmol/L 3.5-5 7313741562) CL (test code = 106 mmol/L 98-108 3434695446) CO2 TOTAL (test code = 27 mmol/L 23-31 7059826651) AGAP (test code = 2-16 1082547737) BUN (test code = 59 mg/dL 7-23 H 8581616763) GLUCOSE (test code = <20 70-110 LL 5433154051) CREATININE (test code = 1.57 mg/dL 0.6-1.25 H 7421747312) CALCIUM (test code = 9.6 mg/dL 8.6-10.6 2751950591) eGFR Calculation mL/min/1.73m2 (Non-) (test code = 3429779110) eGFR Calculation mL/min/1.73m2 () (test code = 5640135652) JUAN LUIS (test code = JUAN LUIS) Association of Glomerular Filtration Rate (GFR) and Staging of Kidney Disease* + --+ --+ ------+| GFR (mL/min/1.73 m2) ?| With Kidney Damage ?| ?Without Kidney Damage+ --------+ --------+ +| ?>90 ?| ?Stage one ?| ? Normal ?+ ---+ ---+ -------+| ?60-89 ?| ?Stage two ?| ? Decreased GFR ? + --+ --+ ------+| ?30-59 ?| ?Stage three ?| ? Stage three ? + --+ --+ ------+| ?15-29 ?| ?Stage four ? | ? Stage four ?+ ---+ ---+ -------+| ?<15 (or dialysis) ? ?| ?Stage five ? | ? Stage five ?+ ---+ ---+ -------+ *Each stage assumes the associated GFR level has been in effect for at least three months. ?Stages 1 to 5, with or without kidney disease, indicate chronic kidney disease. Notes: Determination of stages one and two (with eGFR >59mL/min/1.73 m2) requires estimation of kidney damage for at least three months as defined by structural or functional abnormalities of the kidney, manifested by either:Pathological abnormalities or Markers of kidney damage (including abnormalities in the composition of the blood or urine or abnormalities in imaging tests). Lab Interpretation Abnormal (test code = 66657-8) [facility] GLUCOSE (AUTOMATED)2019-10-27 03:34:00 Test Item Value Reference Range Interpretation Comments POCT GLU (test code = 6051291255) 69 mg/dL 70-110 L Lab Interpretation (test code = Abnormal 51189-8) [facility] GLUCOSE (AUTOMATED)2019-10-27 03:01:00 Test Item Value Reference Range Interpretation Comments POCT GLU (test code = 1651749191) 26 mg/dL 70-110 LL Lab Interpretation (test code = Abnormal 09081-4) [facility] GLUCOSE (AUTOMATED)2019-10-01 16:55:00 Test Item Value Reference Range Interpretation Comments POCT GLU (test code = 0835223416) 182 mg/dL 70-110 H Lab Interpretation (test code = Abnormal 21084-7) [facility] METABOLIC PANEL (NA, K, CL, CO2, GLUCOSE, BUN, CREATININE, CA)2019-10-01 13:17:00 Test Item Value Reference Range Interpretation Comments NA (test code = 137 mmol/L 135-145 2940720700) K (test code = 5.1 mmol/L 3.5-5 H 5418016645) CL (test code = 104 mmol/L 98-108 4195236590) CO2 TOTAL (test code = 24 mmol/L 23-31 0853487381) AGAP (test code = 2-16 5554443637) BUN (test code = 40 mg/dL 7-23 H 5643018800) GLUCOSE (test code = 98 mg/dL 70-110 0450216700) CREATININE (test code = 1.72 mg/dL 0.6-1.25 H 1611729048) CALCIUM (test code = 8.3 mg/dL 8.6-10.6 L 0916551837) eGFR Calculation mL/min/1.73m2 (Non-) (test code = 8898709502) eGFR Calculation mL/min/1.73m2 () (test code = 2733236673) JUAN LUIS (test code = JUAN LUIS) Association of Glomerular Filtration Rate (GFR) and Staging of Kidney Disease* + --+ --+ ------+| GFR (mL/min/1.73 m2) ?| With Kidney Damage ?| ?Without Kidney Damage+ --------+ --------+ +| ?>90 ?| ?Stage one ?| ? Normal ?+ ---+ ---+ -------+| ?60-89 ?| ?Stage two ?| ? Decreased GFR ? + --+ --+ ------+| ?30-59 ?| ?Stage three ?| ? Stage three ? + --+ --+ ------+| ?15-29 ?| ?Stage four ? | ? Stage four ?+ ---+ ---+ -------+| ?<15 (or dialysis) ? ?| ?Stage five ? | ? Stage five ?+ ---+ ---+ -------+ *Each stage assumes the associated GFR level has been in effect for at least three months. ?Stages 1 to 5, with or without kidney disease, indicate chronic kidney disease. Notes: Determination of stages one and two (with eGFR >59mL/min/1.73 m2) requires estimation of kidney damage for at least three months as defined by structural or functional abnormalities of the kidney, manifested by either:Pathological abnormalities or Markers of kidney damage (including abnormalities in the composition of the blood or urine or abnormalities in imaging tests). Lab Interpretation Abnormal (test code = 65434-5) [facility] GLUCOSE (AUTOMATED)2019-10-01 13:04:00 Test Item Value Reference Range Interpretation Comments POCT GLU (test code = 3810010160) 163 mg/dL 70-110 H Lab Interpretation (test code = Abnormal 27045-2) [facility] GLUCOSE (AUTOMATED)2019-10-01 02:08:00 Test Item Value Reference Range Interpretation Comments POCT GLU (test code = 2300150745) 156 mg/dL 70-110 H Lab Interpretation (test code = Abnormal 95259-1) [facility] GLUCOSE (AUTOMATED)2019-09-30 21:47:00 Test Item Value Reference Range Interpretation Comments POCT GLU (test code = 2401646629) 139 mg/dL 70-110 H Lab Interpretation (test code = Abnormal 19382-1) [facility] [id number] 17:06:00 Test Item Value Reference Range Interpretation Comments Occult (guaiac) Blood (test code = Negative Negative 2335-8) Lab Interpretation (test code = Normal 87736-4) [facility] GLUCOSE (AUTOMATED)2019-09-30 17:06:00 Test Item Value Reference Range Interpretation Comments POCT GLU (test code = 9103249136) 83 mg/dL 70-110 Lab Interpretation (test code = Normal 60638-6) [facility]2019-09-30 13:35:00 Test Item Value Reference Range Interpretation Comments POCT GLU (test code = 4184685137) 225 mg/dL 70-110 H Lab Interpretation (test code = Abnormal 57701-6) [facility] Metabolic Panel (NA, K, CL, CO2, GLUCOSE, BUN, CREATININE, CA)2019-09-30 08:40:00 Test Item Value Reference Range Interpretation Comments NA (test code = 137 mmol/L 135-145 7805827239) K (test code = 4.7 mmol/L 3.5-5 6777721929) CL (test code = 105 mmol/L 98-108 5904811723) CO2 TOTAL (test code = 24 mmol/L 23-31 7159470654) AGAP (test code = 2-16 5613855108) BUN (test code = 45 mg/dL 7-23 H 7795210516) GLUCOSE (test code = 227 mg/dL 70-110 H 7454125226) CREATININE (test code = 1.89 mg/dL 0.6-1.25 H 2481116968) CALCIUM (test code = 8.4 mg/dL 8.6-10.6 L 7545976558) eGFR Calculation mL/min/1.73m2 (Non-) (test code = 8696651067) eGFR Calculation mL/min/1.73m2 () (test code = 9283850221) JUAN LUIS (test code = JUAN LUIS) Association of Glomerular Filtration Rate (GFR) and Staging of Kidney Disease* + --+ --+ ------+| GFR (mL/min/1.73 m2) ?| With Kidney Damage ?| ?Without Kidney Damage+ --------+ --------+ +| ?>90 ?| ?Stage one ?| ? Normal ?+ ---+ ---+ -------+| ?60-89 ?| ?Stage two ?| ? Decreased GFR ? + --+ --+ ------+| ?30-59 ?| ?Stage three ?| ? Stage three ? + --+ --+ ------+| ?15-29 ?| ?Stage four ? | ? Stage four ?+ ---+ ---+ -------+| ?<15 (or dialysis) ? ?| ?Stage five ? | ? Stage five ?+ ---+ ---+ -------+ *Each stage assumes the associated GFR level has been in effect for at least three months. ?Stages 1 to 5, with or without kidney disease, indicate chronic kidney disease. Notes: Determination of stages one and two (with eGFR >59mL/min/1.73 m2) requires estimation of kidney damage for at least three months as defined by structural or functional abnormalities of the kidney, manifested by either:Pathological abnormalities or Markers of kidney damage (including abnormalities in the composition of the blood or urine or abnormalities in imaging tests). Lab Interpretation Abnormal (test code = 54559-2) [facility] HospitalMagnesium [id number] 08:40:00 Test Item Value Reference Range Interpretation Comments MAGNESIUM (test code = 8294060363) 2.2 mg/dL 1.7-2.4 Lab Interpretation (test code = Normal 35109-6) [facility] THORAX WO [id number] 03:37:29 1. 6.4 x 6.9 cm left lower lobe consolidation likely pneumonia. Follow-upchest radiographs are recommended to demonstrate complete resolution.2. Small right pleural effusion.3. Mild emphysema.4. Cardiomegaly.5. Mild reactive mediastinal lymphadenopathy.6. Status post CABG. RL: 6190 End of report ORDERING CLINICIAN: ROSIBEL DE LA PAZ TECHNIQUE: Multidetector helical scanning of the chest was performedwithout the use of intravenous contrast. Coronal and sagittal reformationswere obtained. CT scan was performed according to the ALARA (as low as reasonablyachievable) principal. INDICATION: Persistent cough COMPARISON: Chest x-ray 09/18/19 DI SCUSSION:There is a 6.4 x 6.9 cm consolidation with air bronchograms in the leftlower lobe. Findingssuggest pneumonia. There is a small right pleural effusion. There are no additional areas of airspace disease. Mild emphysema is noted in the upper lobes. There is no pneumothorax. The trachea and major bronchi are patent. There is mild mediastinal lymphadenopathy likely reactive, the largestlymph node is in the AP window measuring 10 mm in short axis, series 3image 42. There is moderate cardiomegaly. There is no large pericardial effusion.There is moderate aortic and coronary atherosclerosis, therehas beenprevious CABG. Limited views of the upper abdomen show a benign right renal cyst. There are no acute or suspicious osseous abnormalities. ? [facility], Radiant Results Inft User - 09/29/2019 10:38 PMCDTORDERING CLINICIAN: ROSIBEL FERRELL: Multidetector helical scanning of the chest was perfo rmedwithout the use of intravenous contrast. Coronal and sagittal reformationswere obtained.CT scan was performed according to the ALARA (as low as reasonablyachievable) principal.INDICATION: Persistent coughCOMPARISON: Chest x-ray 09/18/19DISCUSSION:There is a 6.4 x 6.9 cm consolidation with air bronc hograms in the leftlower lobe. Findings suggest pneumonia.There is a small right pleural effusion.There are no additional areas of airspace disease.Mild emphysema is noted in the upper lobes.There is no pneumothorax.The trachea and major bronchi are patent.There is mild mediastinal lymphadenopathy likely reactive, the largestlymph node is in the AP window measuring 10 mm in short axis, series 3image 42.There is moderate cardiomegaly. There is no large pericardial effusion.There is moderate aortic and coronary atherosclerosis, there has beenprevious CABG.Limited views of the upper abdomen show a benign right renal cyst.There are no acute or suspicious osseous abnormalities. IMPRESSION1. 6.4 x 6.9 cm left lower lobe consolidation likely pneumonia. Follow-upchest radiographs are recommended to demonstrate complete resolution.2. Small right pleural effusion.3. Mild emphysema.4. Cardiomegaly.5. Mildreactive mediastinal lymphadenopathy.6. Status post CABG.RL: 6190End of report [facility] HospitalUrinalysis2020-03-18 02:46:00 Test Item Value Reference Range Interpretation Comments APPEARANCE (test code = Clear Clear 9660038672) COLOR (test code = Straw Yellow A 0876872734) PH (test code = 4.8-8.0 2211021059) SP GRAVITY (test code = 1.003-1.030 7727662527) GLU U QUAL (test code = Normal Normal 1462511535) BLOOD (test code = Negative Negative 5794608002) KETONES (test code = Negative Negative 2272313720) PROTEIN (test code = 100 mg/dL Negative A 2887-8) UROBILIN (test code = Normal Normal 8719859603) BILIRUBIN (test code = Negative Negative 1747730635) NITRITE (test code = Negative Negative 9385669275) LEUK SILVIO (test code = Negative Negative 7685905606) RBC/HPF (test code = See_Comment [Autom ated message] 1528259808) The system [employer] generated this result transmit tennille reference range : 0 - 3 HPF. The refe rence range was not u sed to interpret th is result as normal/abnormal . WBC/HPF (test code = <1 See_Comment [Autom ated message] 6837399864) The system [employer] generated this result transmit tennille reference range : 0 - 5 HPF. The refe rence range was not u sed to interpret th is result as normal/abnormal . BACTERIA (test code = Negative Negative 6632065541) Lab Interpretation (test Abnormal code = 85641-9) [facility]2019-09-30 01:30:00 Test Item Value Reference Range Interpretation Comments POCT GLU (test code = 5785090379) 180 mg/dL 70-110 H Lab Interpretation (test code = Abnormal 00521-8) [facility] HospitalTroponin [id number] 22:35:00 Test Item Value Reference Range Interpretation Comments TROPONIN I (test 0.029 ng/mL See_Comment [Automated code = 3546772945) message] The system which generated this result transmitted reference range : <=0.034. The reference range was not used to interpret this result as normal/abnormal . JUAN LUIS (test code = Equal or Less than JUAN LUIS) 0.034 ng/ml---Normal ?Note: Cardiac troponin begins to rise 3-4 hours after the onset of ischemia. Repeat in 4-6 hours if the sample was drawn within 3-4 hours of the onset of the symptom and found normal. Between 0.035 and 0.120 ng/mL--- Borderline. Questionable myocardial injury or necrosis ? ?Note: Serial measurement may be necessary to confirm or exclude the diagnosis of myocardial injury or necrosis; Clinical correlation (symptoms, EKGs, imaging studies, and others) required; Repeat in 4-6 hours if clinically indicated. ? Equal or Higher than 0.121 ng/mL---Abnormal. Myocardial Injury or Necrosis Likely ? Biotin has been reported to cause a negative bias, interpret results relative to patient's use of biotin. ? Lab Interpretation Normal (test code = 23864-6) [facility] HospitalN-TERMINAL [id number] 22:35:00 Test Item Value Reference Range Interpretation Comments NT-proBNP (test code 98766 pg/mL See_Comment H [Autom ated = 5288881419) message] The system which generated this result transmitted reference range : <=125. The reference range was not used to interpret this result as normal/abnormal . JUAN LUIS (test code = JUAN LUIS) Biotin has been reported to cause a negative bias, interpret results relative to patient's use of biotin. Lab Interpretation Abnormal (test code = 82679-0) [facility] HospitalXR FOOT 3+ VW [id number] 22:25:411. No acute fracture. EXAM: Right foot 3 views HISTORY: Pain TECHNIQUE:AP, lateral, oblique view ofthe right foot is obtained. FINDINGS:No acute fracture or dislocation is identified. Degenerativechanges are seen in the MTP joint and DIP joint of the great toe. A plantarcalcaneal spur is present. Generalized osteopenia is noted. Mild soft tissue swelling is seen in the midfoot. [facility], Radiant Results Inft User - 09/29/2019 5:26 PM CDTEXAM: Right foot 3 viewsHISTORY: PainTECHNIQUE:AP, lateral, oblique view of the right foot is obtained.FINDINGS:No acute fracture or dislocation is identified. Degene rativechanges are seen in the MTP joint and DIP joint of the great toe. A plantarcalcaneal spur is present. Generalized osteopenia is noted.Mild soft tissue swelling is seen in the midfoot.IMPRESSION1.No acute fracture.[facility] HospitalChest 1 [id number] 22:23:02CHEST ONE VIEW HISTORY: ?SOB TECHNIQUE: ?AP view of the chest is obtained. COMPARISON: 09/29/2019 FIND INGS: The right lung is clear. Areas of atelectasis are seen in theleft lower lobe likely related toelevated left hemidiaphragm. Heart size is borderline enlarged. Changes of median sternotomy arepresent. A small left pleural effusion is suspected. No pneumothorax isnoted. CONCLUSIONS:1. Left lower lobe subsegmental atelectasis likely related to elevated lefthemidiaphragm2. Small left pleural effusion and mild cardiomegalyUtmb, Radiant Results Inft User - 09/29/2019 5:24 PM CDTCHEST ONE VIEWHISTORY: SOBTECHNIQUE: AP view of the chest is obtained.COMPARISON: 09/29/2019FINDINGS: The right lung is clear. Areas of atelectasis are seen in theleft lower lobe likely related to elevated left hemidiaphragm.Heart size is borderline enlarged. Changes of median sternotomy arepresent. A small left pleural effusion is suspected. No pneumothorax isnoted.CONCLUSIONS:1. Left lower lobe subsegmental atelectasis likely related to elevated lefthemidiaphragm2. Small left pleural effusion and mild cardiomegalyUnJoint venture between [facility] Met[facility] (NA, K, CL, CO2, GLUCOSE, BUN, CREATININE, CA)2019-09-29 22:23:00 Test Item Value Reference Range Interpretation Comments NA (test code = 136 mmol/L 135-145 3763130789) K (test code = 5.3 mmol/L 3.5-5 H 2677983723) CL (test code = 104 mmol/L 98-108 5027748260) CO2 TOTAL (test code = 23 mmol/L 23-31 6867608235) AGAP (test code = 2-16 7648291561) BUN (test code = 50 mg/dL 7-23 H 6958657331) GLUCOSE (test code = 76 mg/dL 70-110 0380496286) CREATININE (test code = 1.92 mg/dL 0.6-1.25 H 7462412244) CALCIUM (test code = 8.6 mg/dL 8.6-10.6 8618063839) eGFR Calculation mL/min/1.73m2 (Non-) (test code = 5757219327) eGFR Calculation mL/min/1.73m2 () (test code = 4768996417) JUAN LUIS (test code = JUAN LUIS) Association of Glomerular Filtration Rate (GFR) and Staging of Kidney Disease* + --+ --+ ------+| GFR (mL/min/1.73 m2) ?| With Kidney Damage ?| ?Without Kidney Damage+ --------+ --------+ +| ?>90 ?| ?Stage one ?| ? Normal ?+ ---+ ---+ -------+| ?60-89 ?| ?Stage two ?| ? Decreased GFR ? + --+ --+ ------+| ?30-59 ?| ?Stage three ?| ? Stage three ? + --+ --+ ------+| ?15-29 ?| ?Stage four ? | ? Stage four ?+ ---+ ---+ -------+| ?<15 (or dialysis) ? ?| ?Stage five ? | ? Stage five ?+ ---+ ---+ -------+ *Each stage assumes the associated GFR level has been in effect for at least three months. ?Stages 1 to 5, with or without kidney disease, indicate chronic kidney disease. Notes: Determination of stages one and two (with eGFR >59mL/min/1.73 m2) requires estimation of kidney damage for at least three months as defined by structural or functional abnormalities of the kidney, manifested by either:Pathological abnormalities or Markers of kidney damage (including abnormalities in the composition of the blood or urine or abnormalities in imaging tests). Lab Interpretation Abnormal (test code = 93501-3) [facility] HospitalHepatic Function Panel (ALB, T.PRO, BILI T, BU/BC, ALT, AST, ALK PHOS)2019-09-29 22:23:00 Test Item Value Reference Range Interpretation Comments TOTAL BILI (test code = 9074621638) 0.3 mg/dL 0.1-1.1 BILI UNCON (test code = 4055006597) 0.2 mg/dL 0.1-1.1 BILI CONJ (test code = 9064203397) 0.0 mg/dL 0-0.3 T PROTEIN (test code = 4927028961) 6.3 g/dL 6.3-8.2 ALBUMIN (test code = 7105130398) 3.1 g/dL 3.5-5 L ALK PHOS (test code = 0249973248) 95 U/L 34-122 ALTv (test code = 1742-6) 15 U/L 5-50 AST(SGOT) (test code = 6470588117) 19 U/L 13-40 Lab Interpretation (test code = Abnormal 10130-9) [facility] HospitalaPTT2020-03-17 22:13:00 Test Item Value Reference Range Interpretation Comments APTT Patient (test code = See_Comment [ Automated message] 3173-2) The system [employer] h generated this result transmitted ref erence range: 26 - 36 Seconds. The re ference range was not u sed to interpret this result as normal/abnor mal. Lab Interpretation (test Normal code = 49841-1) [facility] HospitalProthrombin Time (PT) / [id number] 22:13:00 Test Item Value Reference Range Interpretation Comments PROTIME PATIENT (test See_Comment [Auto mated message] code = 5964-2) The system wh ich generated this result transmitted ref erence range: 10.1 - 1 2.6 Seconds. The re ference range was not u sed to interpret this result as normal/abnor mal. INR (test code = 6301-6) Nor mal INR <1.1; Warfarin Therap eutic range 2.0 to 3. 0 or 2.5 to 3.5, dep ending upon the indica tions. Lab Interpretation (test Normal code = 90314-1) [facility] HospitalCBC WITH [id number] 22:09:00 Test Item Value Reference Range Interpretation Comments WBC (test code = See_Comment [Automated 9590-2) message] The sy stem which generated this result transmitted reference range : 4.20 - 10.70 10*3/?L. The reference range was not used to interpret this result as normal/abnormal . RBC (test code = See_Comment L [Automated 076-8) message] The sy stem which generated this result transmitted reference range : 4.26 - 5.52 10*6/?L. The reference range was not used to interpret this result as normal/abnormal . HGB (test code = 8.0 g/dL 12.2-16.4 L 718-7) HCT (test code = 25.2 % 38.4-49.3 L 4544-3) MCV (test code = 72.4 fL 81.7-95.6 L 787-2) MCH (test code = 23.0 pg 26.1-32.7 L 785-6) MCHC (test code = 31.7 g/dL 31.2-35 786-4) RDW-SD (test code = 55.0 fL 38.5-51.6 H 11711-4) RDW-CV (test code = 22.0 % 12.1-15.4 H 788-0) PLT (test code = See_Comment H [Automated 777-3) message] The sy stem which generated this result transmitted reference range : 150 - 328 10*3/ ?L. The reference r christine was not used to interpret this result as normal/abnormal . MPV (test code = 11.1 fL 9.8-13 27100-4) NRBC/100 WBC (test See_Comment [Automat ed code = 6257699520) message] The system which generated this result transmitted reference range : 0.0 - 10.0 /100 WBCs. The refer ence range was not u sed to interpret th is result as normal/abnormal . NRBC x10^3 (test code <0.01 See_Comment [Auto mated = 1002709920) message] The s ystem which generated this result transmitted reference range : 10*3/?L. The reference range was not used to interpret this result as normal/abnormal . GRAN MAT (NEUT) % 65.4 % (test code = 770-8) IMM GRAN % (test code 0.30 % = 8791764892) LYMPH % (test code = 18.2 % 736-9) MONO % (test code = 10.9 % 5905-5) EOS % (test code = 4.3 % 713-8) BASO % (test code = 0.9 % 706-2) GRAN MAT x10^3(ANC) 5.73 10*3/uL 1.99-6.95 (test code = 9050664698) IMM GRAN x10^3 (test 0.03 10*3/uL 0-0.06 code = 0170482781) LYMPH x10^3 (test code 1.60 10*3/uL 1.09-3.23 = 731-0) MONO x10^3 (test code 0.96 10*3/uL 0.36-1.02 = 742-7) EOS x10^3 (test code = 0.38 10*3/uL 0.06-0.53 711-2) BASO x10^3 (test code 0.08 10*3/uL 0.01-0.09 = 704-7) Lab Interpretation Abnormal (test code = 74505-2) [facility] HospitalCOMP. METABOLIC PANEL (82866)2019-09-29 16:09:00 Test Item Value Reference Range Interpretation Comments NA (test code = 136 mmol/L 135-145 0542289863) K (test code = 5.4 mmol/L 3.5-5 H 5783088053) CL (test code = 105 mmol/L 98-108 0314869837) CO2 TOTAL (test code = 23 mmol/L 23-31 9962928409) AGAP (test code = 2-16 2575513222) BUN (test code = 53 mg/dL 7-23 H 1315465862) GLUCOSE (test code = 242 mg/dL 70-110 H 4848754314) CREATININE (test code = 1.97 mg/dL 0.6-1.25 H 6491235638) TOTAL BILI (test code = 0.1 mg/dL 0.1-1.3 4703406338) CALCIUM (test code = 8.6 mg/dL 8.6-10.6 8544521735) T PROTEIN (test code = 6.0 g/dL 6.3-8.2 L 5416083222) ALBUMIN (test code = 2.9 g/dL 3.5-5 L 1186159090) ALK PHOS (test code = 91 U/L 34-122 6443293851) ALTv (test code = 15 U/L 5-50 1742-6) AST(SGOT) (test code = 22 U/L 13-40 6183561572) eGFR Calculation mL/min/1.73m2 (Non-) (test code = 0244851432) eGFR Calculation mL/min/1.73m2 () (test code = 9403459114) JUAN LUIS (test code = JUAN LUIS) Association of Glomerular Filtration Rate (GFR) and Staging of Kidney Disease* + --+ --+ ------+| GFR (mL/min/1.73 m2) ?| With Kidney Damage ?| ?Without Kidney Damage+ --------+ --------+ +| ?>90 ?| ?Stage one ?| ? Normal ?+ ---+ ---+ -------+| ?60-89 ?| ?Stage two ?| ? Decreased GFR ? + --+ --+ ------+| ?30-59 ?| ?Stage three ?| ? Stage three ? + --+ --+ ------+| ?15-29 ?| ?Stage four ? | ? Stage four ?+ ---+ ---+ -------+| ?<15 (or dialysis) ? ?| ?Stage five ? | ? Stage five ?+ ---+ ---+ -------+ *Each stage assumes the associated GFR level has been in effect for at least three months. ?Stages 1 to 5, with or without kidney disease, indicate chronic kidney disease. Notes: Determination of stages one and two (with eGFR >59mL/min/1.73 m2) requires estimation of kidney damage for at least three months as defined by structural or functional abnormalities of the kidney, manifested by either:Pathological abnormalities or Markers of kidney damage (including abnormalities in the composition of the blood or urine or abnormalities in imaging tests). Lab Interpretation Abnormal (test code = 31561-0) [facility] WITH [id number] 15:42:00 Test Item Value Reference Range Interpretation Comments WBC (test code = See_Comment [Automated 5269-2) message] The sy stem which generated this result transmitted reference range : 4.20 - 10.70 10*3/?L. The reference range was not used to interpret this result as normal/abnormal . RBC (test code = See_Comment L [Automated 990-8) message] The sy stem which generated this result transmitted reference range : 4.26 - 5.52 10*6/?L. The reference range was not used to interpret this result as normal/abnormal . HGB (test code = 7.2 g/dL 12.2-16.4 L 718-7) HCT (test code = 22.7 % 38.4-49.3 L 4544-3) MCV (test code = 72.3 fL 81.7-95.6 L 787-2) MCH (test code = 22.9 pg 26.1-32.7 L 785-6) MCHC (test code = 31.7 g/dL 31.2-35 786-4) RDW-SD (test code = 55.4 fL 38.5-51.6 H 65139-5) RDW-CV (test code = 22.5 % 12.1-15.4 H 788-0) PLT (test code = See_Comment [Automated 777-3) message] The sy stem which generated this result transmitted reference range : 150 - 328 10*3/ ?L. The reference r christine was not used to interpret this result as normal/abnormal . MPV (test code = 12.0 fL 9.8-13 70517-4) NRBC/100 WBC (test See_Comment [Automat ed code = 0448862967) message] The system which generated this result transmitted reference range : 0.0 - 10.0 /100 WBCs. The refer ence range was not u sed to interpret th is result as normal/abnormal . NRBC x10^3 (test code <0.01 See_Comment [Auto mated = [id number]) message] The s ystem which generated this result transmitted reference range : 10*3/?L. The reference range was not used to interpret this result as normal/abnormal . GRAN MAT (NEUT) % 71.8 % (test code = 770-8) IMM GRAN % (test code 0.40 % = 3514275761) LYMPH % (test code = 13.9 % 736-9) MONO % (test code = 9.4 % 5905-5) EOS % (test code = 3.8 % 713-8) BASO % (test code = 0.7 % 706-2) GRAN MAT x10^3(ANC) 5.49 10*3/uL 1.99-6.95 (test code = 3137171888) IMM GRAN x10^3 (test 0.03 10*3/uL 0-0.06 code = 7264811224) LYMPH x10^3 (test code 1.06 10*3/uL 1.09-3.23 L = 731-0) MONO x10^3 (test code 0.72 10*3/uL 0.36-1.02 = 742-7) EOS x10^3 (test code = 0.29 10*3/uL 0.06-0.53 711-2) BASO x10^3 (test code 0.05 10*3/uL 0.01-0.09 = 704-7) Lab Interpretation Abnormal (test code = 08345-2) [facility] [id number] 15:03:28HISTORY: S/P CABG. TECHNIQUE: PA and lateral views of the chest are obtained. Comparison ismade with09/18/2019 study. FINDINGS: Mild cardiomegaly, COPD, changes of open thoracic surgery forcoronary bypass with midline sternotomy wire sutures and mediastinal clipsnoted. Scarring is seen the left lower thorax with elevation lefthemidiaphragm. No pulmonary edema. No pneumonia or pleural effusion.Minimal congestion/atelectatic changes are seen in the left lung base. CONCLUSIONS: Cardiomegaly, COPD, minimal congestion/atelectatic changes inthe left lung base.[facility], Radiant Results Inft User - 09/29/2019 10:04 AM CDTHISTORY: S/P CABG.TECHNIQUE: PA and lateral views of the chest are obtained. Comparison ism gorge with 09/18/2019 study.FINDINGS: Mild cardiomegaly, COPD, changes of open thoracic surgery forcoronary bypass with midline sternotomy wire sutures and mediastinal clipsnoted. Scarring is seen the leftlower thorax with elevation lefthemidiaphragm. No pulmonary edema. No pneumonia or pleural effusion.Minimal congestion/atelectatic changes are seen in the left lung base.CONCLUSIONS: Cardiomegaly, COPD, minimal congestion/atelectatic changes inthe left lung base. [facility] OCCUPATIONAL [id number] 00:00:00Consult received and chart reviewed via [email or web address]. ?Please refer to progress note for details. ? Lisha Gagnon, O.T.R.[phone] [facility] OCCUPATIONAL [id number] 00:00:00Consult received and verbal order placed 09-21-2019 for patient seen in clinic 09-21-2019. ?Please refer to progress note for details. Gordo [phone] [facility] [id number] 01:43:48Impression:1. Persistent but improved left pleural effusion and left basilaratelectasis. Location Code: 2831 Clinical statement: cough, hx of open heart surgery 2 weeks ago Ordering physician: Servando Kwon Chest two view. Comparison: August Findings:Median sternotomy present. Large cardiac silhouette is seen. Small lefteffusion and basilar atelectasis is present. This has improved. Nopneumothorax. No lobar consolidation. Bone demineralization stable. Theremainder is unchanged. [facility], Radiant Results Inft User - 09/18/2019 7:44 PM CSTClinical statement: cough, hx of open heart surgery 2 weeks ago Ordering physician: Servando KwonChesttwo view.Comparison: AugustFindings:Median sternotomy present. Large cardiac silhouette is seen. Small lefteffusion and basilar atelectasis is present. This has improved. Nopneumothorax. No lobar consolidation. Bone demineralization stable. Theremainder is unchanged.IMPRESSIONImpression:1. Persistent but improved left pleural effusion and left basilaratelectasis.Location Code: 2831 [facility] PO[facility] GLUCOSE (AUTOMATED)2019-09-15 18:20:00 Test Item Value Reference Range Interpretation Comments POCT GLU (test code = 7397913960) 160 mg/dL 70-110 H Lab Interpretation (test code = Abnormal 30106-3) [facility] [id number] 18:07:00 Test Item Value Reference Range Interpretation Comments SPUTUM CULTURE 1+ Respiratory alla: (test code = Commensal upper respiratory 622-1) microorganisms only. Gram stain (test Occasional (Rare) code = 664-3) Polymorphonuclear leukocytes JUAN LUIS (test code = Bacterial pathogens JUAN LUIS) associated with lower respiratory infections were not identified, which include Pseudomonas aeruginosa and Staphylococcus aureus (MRSA or MSSA). [facility] (NA, K, CL, CO2, GLUCOSE, BUN, CREATININE, CA)2019-09-15 17:31:00 Test Item Value Reference Range Interpretation Comments NA (test code = 137 mmol/L 135-145 2874812578) K (test code = 4.2 mmol/L 3.5-5 8546159738) CL (test code = 99 mmol/L 98-108 6982360672) CO2 TOTAL (test code = 30 mmol/L 23-31 8425297158) AGAP (test code = 2-16 4432270460) BUN (test code = 31 mg/dL 7-23 H 3760522828) GLUCOSE (test code = 156 mg/dL 70-110 H 0333315890) CREATININE (test code = 0.94 mg/dL 0.6-1.25 9610605627) CALCIUM (test code = 8.1 mg/dL 8.6-10.6 L 6055881806) eGFR Calculation mL/min/1.73m2 (Non-) (test code = 8383480011) eGFR Calculation mL/min/1.73m2 () (test code = 1398299974) JUAN LUIS (test code = JUAN LUIS) Association of Glomerular Filtration Rate (GFR) and Staging of Kidney Disease* + --+ --+ ------+| GFR (mL/min/1.73 m2) ?| With Kidney Damage ?| ?Without Kidney Damage+ --------+ --------+ +| ?>90 ?| ?Stage one ?| ? Normal ?+ ---+ ---+ -------+| ?60-89 ?| ?Stage two ?| ? Decreased GFR ? + --+ --+ ------+| ?30-59 ?| ?Stage three ?| ? Stage three ? + --+ --+ ------+| ?15-29 ?| ?Stage four ? | ? Stage four ?+ ---+ ---+ -------+| ?<15 (or dialysis) ? ?| ?Stage five ? | ? Stage five ?+ ---+ ---+ -------+ *Each stage assumes the associated GFR level has been in effect for at least three months. ?Stages 1 to 5, with or without kidney disease, indicate chronic kidney disease. Notes: Determination of stages one and two (with eGFR >59mL/min/1.73 m2) requires estimation of kidney damage for at least three months as defined by structural or functional abnormalities of the kidney, manifested by either:Pathological abnormalities or Markers of kidney damage (including abnormalities in the composition of the blood or urine or abnormalities in imaging tests). Lab Interpretation Abnormal (test code = 98124-7) [facility] WITH [id number] 17:11:00 Test Item Value Reference Range Interpretation Comments WBC (test code = See_Comment H [Automated 6690-2) message] The sy stem which generated this result transmitted reference range : 4.20 - 10.70 10*3/?L. The reference range was not used to interpret this result as normal/abnormal . RBC (test code = See_Comment L [Automated 789-8) message] The sy stem which generated this result transmitted reference range : 4.26 - 5.52 10*6/?L. The reference range was not used to interpret this result as normal/abnormal . HGB (test code = 7.8 g/dL 12.2-16.4 L 718-7) HCT (test code = 24.6 % 38.4-49.3 L 4544-3) MCV (test code = 72.8 fL 81.7-95.6 L 787-2) MCH (test code = 23.1 pg 26.1-32.7 L 785-6) MCHC (test code = 31.7 g/dL 31.2-35 786-4) RDW-SD (test code = 55.8 fL 38.5-51.6 H 08009-7) RDW-CV (test code = 22.6 % 12.1-15.4 H 788-0) PLT (test code = See_Comment H [Automated 777-3) message] The sy stem which generated this result transmitted reference range : 150 - 328 10*3/ ?L. The reference r christine was not used to interpret this result as normal/abnormal . MPV (test code = 10.6 fL 9.8-13 08453-7) NRBC/100 WBC (test See_Comment [Automat ed code = 9194562780) message] The system which generated this result transmitted reference range : 0.0 - 10.0 /100 WBCs. The refer ence range was not u sed to interpret th is result as normal/abnormal . NRBC x10^3 (test code <0.01 See_Comment [Auto mated = 3292321056) message] The s ystem which generated this result transmitted reference range : 10*3/?L. The reference range was not used to interpret this result as normal/abnormal . GRAN MAT (NEUT) % 78.3 % (test code = 770-8) IMM GRAN % (test code 0.30 % = 7404754652) LYMPH % (test code = 11.7 % 736-9) MONO % (test code = 7.2 % 5905-5) EOS % (test code = 2.2 % 713-8) BASO % (test code = 0.3 % 706-2) GRAN MAT x10^3(ANC) 9.12 10*3/uL 1.99-6.95 H (test code = 7372902662) IMM GRAN x10^3 (test 0.04 10*3/uL 0-0.06 code = 4930099073) LYMPH x10^3 (test code 1.36 10*3/uL 1.09-3.23 = 731-0) MONO x10^3 (test code 0.84 10*3/uL 0.36-1.02 = 742-7) EOS x10^3 (test code = 0.26 10*3/uL 0.06-0.53 711-2) BASO x10^3 (test code 0.03 10*3/uL 0.01-0.09 = 704-7) Lab Interpretation Abnormal (test code = 30351-4) [facility] GLUCOSE (AUTOMATED)2019-09-15 14:16:00 Test Item Value Reference Range Interpretation Comments POCT GLU (test code = 4381778589) 114 mg/dL 70-110 H Lab Interpretation (test code = Abnormal 53489-0) [facility] GLUCOSE (AUTOMATED)2019-09-15 03:22:00 Test Item Value Reference Range Interpretation Comments POCT GLU (test code = 1706142373) 128 mg/dL 70-110 H Lab Interpretation (test code = Abnormal 09173-5) [facility] GLUCOSE (AUTOMATED)2019-09-14 22:37:00 Test Item Value Reference Range Interpretation Comments POCT GLU (test code = 4128670793) 133 mg/dL 70-110 H Lab Interpretation (test code = Abnormal 95658-5) [facility] GLUCOSE (AUTOMATED)2019-09-14 18:45:00 Test Item Value Reference Range Interpretation Comments POCT GLU (test code = 9301542096) 143 mg/dL 70-110 H Lab Interpretation (test code = Abnormal 09277-9) [facility] [id number] 14:19:08 Bilateral hazy and patchy airspace opacities may represent combination ofedema and layering pleuraleffusion. More dense opacification in the leftlung may represent an atelectasis or pneumonia. PROCEDURE: XR CHEST 1 VW CLINICAL INDICATION: SOB COMPARISON: 09/12/2019 FINDINGS: Patchy airspace opacities present in the left lung base, associated withleft pleural effusion. Interval development of hazy o pacity in the rightlung with a new small layering pleural effusion. The heart is partiallyobscured by left basilar opacity, likely enlarged. Median sternotomy wiresand mediastinal surgical clips are present. No acute bony abnormality. [facility], Radiant Results Inft User - 09/14/2019 8:20 AM CSTPROCEDURE:XR CHEST 1 VWCLINICAL INDICATION: SOB COMPARISON: 09/12/2019FINDINGS:Patchy airspace opacities present in the left lung base, associated withleft pleural effusion. Interval development of hazy opacity in the rightlung with a new small layering pleural effusion. The heart is partiallyobscured by left basilar opacity, likely enlarged. Median sternotomy wiresand mediastinal surgical clips are present. No acute bony abnormality.IMPRESSIONBilateral hazy and patchy airspace opacities may represent combination ofedema and layering pleural effusion. More dense opacification in the leftlung may represent an atelectasis or pneumonia. [facility] GLUCOSE (AUTOMATED)2019-09-14 13:30:00 Test Item Value Reference Range Interpretation Comments POCT GLU (test code = 8663185901) 78 mg/dL 70-110 Lab Interpretation (test code = Normal 66078-3) [facility] (NA, K, CL, CO2, GLUCOSE, BUN, CREATININE, CA)2019-09-14 10:04:00 Test Item Value Reference Range Interpretation Comments NA (test code = 136 mmol/L 135-145 6782806803) K (test code = 4.2 mmol/L 3.5-5 7387375024) CL (test code = 102 mmol/L 98-108 3057567752) CO2 TOTAL (test code = 30 mmol/L 23-31 7783836710) AGAP (test code = 2-16 7087523639) BUN (test code = 33 mg/dL 7-23 H 1165656519) GLUCOSE (test code = 98 mg/dL 70-110 9744248077) CREATININE (test code = 1.00 mg/dL 0.6-1.25 2179423503) CALCIUM (test code = 7.5 mg/dL 8.6-10.6 L 1213873054) eGFR Calculation mL/min/1.73m2 (Non-) (test code = 4530537543) eGFR Calculation mL/min/1.73m2 () (test code = 0015685315) JUAN LUIS (test code = JUAN LUIS) Association of Glomerular Filtration Rate (GFR) and Staging of Kidney Disease* + --+ --+ ------+| GFR (mL/min/1.73 m2) ?| With Kidney Damage ?| ?Without Kidney Damage+ --------+ --------+ +| ?>90 ?| ?Stage one ?| ? Normal ?+ ---+ ---+ -------+| ?60-89 ?| ?Stage two ?| ? Decreased GFR ? + --+ --+ ------+| ?30-59 ?| ?Stage three ?| ? Stage three ? + --+ --+ ------+| ?15-29 ?| ?Stage four ? | ? Stage four ?+ ---+ ---+ -------+| ?<15 (or dialysis) ? ?| ?Stage five ? | ? Stage five ?+ ---+ ---+ -------+ *Each stage assumes the associated GFR level has been in effect for at least three months. ?Stages 1 to 5, with or without kidney disease, indicate chronic kidney disease. Notes: Determination of stages one and two (with eGFR >59mL/min/1.73 m2) requires estimation of kidney damage for at least three months as defined by structural or functional abnormalities of the kidney, manifested by either:Pathological abnormalities or Markers of kidney damage (including abnormalities in the composition of the blood or urine or abnormalities in imaging tests). Lab Interpretation Abnormal (test code = 58317-0) [facility] 10:04:00 Test Item Value Reference Range Interpretation Comments MAGNESIUM (test code = 0213645052) 2.1 mg/dL 1.7-2.4 Lab Interpretation (test code = Normal 98118-2) [facility] GLUCOSE (AUTOMATED)2019-09-14 08:13:00 Test Item Value Reference Range Interpretation Comments POCT GLU (test code = 8450164597) 71 mg/dL 70-110 Lab Interpretation (test code = Normal 26425-7) [facility] GLUCOSE (AUTOMATED)2019-09-14 02:25:00 Test Item Value Reference Range Interpretation Comments POCT GLU (test code = 4050322699) 53 mg/dL 70-110 L Lab Interpretation (test code = Abnormal 07381-8) [facility] GLUCOSE (AUTOMATED)2019-09-13 23:06:00 Test Item Value Reference Range Interpretation Comments POCT GLU (test code = 1115424909) 140 mg/dL 70-110 H Lab Interpretation (test code = Abnormal 59754-9) [facility] GLUCOSE (AUTOMATED)2019-09-13 17:45:00 Test Item Value Reference Range Interpretation Comments POCT GLU (test code = 8240234924) 260 mg/dL 70-110 H Lab Interpretation (test code = Abnormal 68589-1) [facility] GLUCOSE (AUTOMATED)2019-09-13 14:07:00 Test Item Value Reference Range Interpretation Comments POCT GLU (test code = 3229747746) 194 mg/dL 70-110 H Lab Interpretation (test code = Abnormal 66034-6) [facility] (NA, K, CL, CO2, GLUCOSE, BUN, CREATININE, CA)2019-09-13 10:14:00 Test Item Value Reference Range Interpretation Comments NA (test code = 135 mmol/L 135-145 7738483601) K (test code = 4.4 mmol/L 3.5-5 7597905529) CL (test code = 101 mmol/L 98-108 8939538779) CO2 TOTAL (test code = 27 mmol/L 23-31 7493220630) AGAP (test code = 2-16 7769761846) BUN (test code = 34 mg/dL 7-23 H 6650433278) GLUCOSE (test code = 178 mg/dL 70-110 H 1633242673) CREATININE (test code = 1.02 mg/dL 0.6-1.25 9130648517) CALCIUM (test code = 7.8 mg/dL 8.6-10.6 L 6043351818) eGFR Calculation mL/min/1.73m2 (Non-) (test code = 4766982552) eGFR Calculation mL/min/1.73m2 () (test code = 6942863467) JUAN LUIS (test code = JUAN LUIS) Association of Glomerular Filtration Rate (GFR) and Staging of Kidney Disease* + --+ --+ ------+| GFR (mL/min/1.73 m2) ?| With Kidney Damage ?| ?Without Kidney Damage+ --------+ --------+ +| ?>90 ?| ?Stage one ?| ? Normal ?+ ---+ ---+ -------+| ?60-89 ?| ?Stage two ?| ? Decreased GFR ? + --+ --+ ------+| ?30-59 ?| ?Stage three ?| ? Stage three ? + --+ --+ ------+| ?15-29 ?| ?Stage four ? | ? Stage four ?+ ---+ ---+ -------+| ?<15 (or dialysis) ? ?| ?Stage five ? | ? Stage five ?+ ---+ ---+ -------+ *Each stage assumes the associated GFR level has been in effect for at least three months. ?Stages 1 to 5, with or without kidney disease, indicate chronic kidney disease. Notes: Determination of stages one and two (with eGFR >59mL/min/1.73 m2) requires estimation of kidney damage for at least three months as defined by structural or functional abnormalities of the kidney, manifested by either:Pathological abnormalities or Markers of kidney damage (including abnormalities in the composition of the blood or urine or abnormalities in imaging tests). Lab Interpretation Abnormal (test code = 11742-4) [facility] 10:14:00 Test Item Value Reference Range Interpretation Comments MAGNESIUM (test code = 4288596334) 2.2 mg/dL 1.7-2.4 Lab Interpretation (test code = Normal 31131-2) [facility] WITH [id number] 10:01:00 Test Item Value Reference Range Interpretation Comments WBC (test code = See_Comment H [Automated 6690-2) message] The sy stem which generated this result transmitted reference range : 4.20 - 10.70 10*3/?L. The reference range was not used to interpret this result as normal/abnormal . RBC (test code = See_Comment L [Automated 789-8) message] The sy stem which generated this result transmitted reference range : 4.26 - 5.52 10*6/?L. The reference range was not used to interpret this result as normal/abnormal . HGB (test code = 7.6 g/dL 12.2-16.4 L 718-7) HCT (test code = 23.6 % 38.4-49.3 L 4544-3) MCV (test code = 74.2 fL 81.7-95.6 L 787-2) MCH (test code = 23.9 pg 26.1-32.7 L 785-6) MCHC (test code = 32.2 g/dL 31.2-35 786-4) RDW-SD (test code = 57.0 fL 38.5-51.6 H 94346-9) RDW-CV (test code = 22.5 % 12.1-15.4 H 788-0) PLT (test code = See_Comment [Automated 777-3) message] The sy stem which generated this result transmitted reference range : 150 - 328 10*3/ ?L. The reference r christine was not used to interpret this result as normal/abnormal . MPV (test code = 10.4 fL 9.8-13 83238-6) NRBC/100 WBC (test See_Comment [Automat ed code = 6591269194) message] The system which generated this result transmitted reference range : 0.0 - 10.0 /100 WBCs. The refer ence range was not u sed to interpret th is result as normal/abnormal . NRBC x10^3 (test code <0.01 See_Comment [Auto mated = 0012832947) message] The s [employer] which generated this result transmitted reference range : 10*3/?L. The reference range was not used to interpret this result as normal/abnormal . GRAN MAT (NEUT) % 77.6 % (test code = 770-8) IMM GRAN % (test code 0.70 % = 0165644248) LYMPH % (test code = 11.2 % 736-9) MONO % (test code = 8.7 % 5905-5) EOS % (test code = 1.5 % 713-8) BASO % (test code = 0.3 % 706-2) GRAN MAT x10^3(ANC) 9.01 10*3/uL 1.99-6.95 H (test code = 1724213343) IMM GRAN x10^3 (test 0.08 10*3/uL 0-0.06 H code = 1132102526) LYMPH x10^3 (test code 1.30 10*3/uL 1.09-3.23 = 731-0) MONO x10^3 (test code 1.01 10*3/uL 0.36-1.02 = 742-7) EOS x10^3 (test code = 0.17 10*3/uL 0.06-0.53 711-2) BASO x10^3 (test code 0.03 10*3/uL 0.01-0.09 = 704-7) Lab Interpretation Abnormal (test code = 38481-2) [facility] 07:12:00 Test Item Value Reference Range Interpretation Comments Procalcitonin (test 0.14 ng/mL <0.07 H code = 6795541477) JUAN LUIS (test code = JUAN LUIS) INTERPRETATION OF PROCALCITONIN RESULTS IN ADULTS >= 18 YEARS OF AGE Initiation and discontinuation of antibiotics on patients with suspected or confirmed Lower Respiratory Tract Infection in Adults >= 18 years of age. + +-------- --------+ + -----+|Procalcitonin |Interpretation ?|Antibiotic ? ? |Considerations ? |ng/mL ? | ?|recommendation | ? + +-------- --------+ + -----+| <0.1 ? | Bacterial ? ? ?| Strongly ? ? ?| ? | ?| infection very | discouraged ? | Overruling: ? | ?| unlikely ? ? ? | ? | ? Clinically unstable ? ? ? + +-------- --------+ + ? High risk for adverse ? ? | <0.25 ?| Bacterial ? ? ?| Discouraged ? | ? outcome ? | ?| infection ? ? ?| ? | ? SEE IMPORTANT NOTE ?| ?| unlikely ? ? ? | ? | ? + +-------- --------+ + -----+| >=0.25 ? ? ? | Bacterial ? ? ?| Encouraged ? ?| ? | ?| infection ? ? ?| ? | ? | ?| likely ? | ? | Consider treatment failure ?+ +------- ---------+ -+ if levels does not decrease | >0.5 ? | Bacterial ? ? ?| Strongly ? ? ?| appropriately ? | ?| infection very | encouraged ? ?| ? | ?| likely ? | ? | ? + +-------- --------+ + -----+ Discontinuation of antibiotics in high-acuity patients with suspected or confirmed sepsis in Adults >= 18 years of age. + +-------- --------+ + -----+|Procalcitonin |Interpretation ?|Antibiotic ? ? |Considerations ? |ng/mL ? | ?|recommendation | ? + +-------- --------+ + -----+| <0.25 ?| Bacterial ? ? ?| Strongly ? ? ?| ? | ?| infection very | discouraged ? | Overruling: ? | ?| unlikely ? ? ? | ? | ? Clinically unstable ? ? ? + +-------- --------+ + ? High risk for adverse ? ? | <0.5 or drop | Bacterial ? ? ?| Discouraged ? | ? outcome ? | >80% from ? ?| infection ? ? ?| ? | ? SEE IMPORTANT NOTE ?| highest PCT ?| unlikely ? ? ? | ? | ? | level ?| ?| ? | ? + +-------- --------+ + -----+| >=0.5 ?| Bacterial ? ? ?| Encouraged ? ?| ? | ?| infection ? ? ?| ? | ? | ?| likely ? | ? | Consider treatment failure ?+ +------- ---------+ -+ if levels does not decrease | >1.0 ? | Bacterial ? ? ?| Strongly ? ? ?| appropriately ? | ?| infection very | encouraged ? ?| ? | ?| likely ? | ? | ? + +-------- --------+ + -----+ Percentage of drop of Procalcitonin calculation for Discontinuation of antibiotics in high-acuity patients with suspected or confirmed sepsis in Adults >= 18 years of age. ? Procalcitonin highest{}-Procalcitonin current{}Delta Procalcitonin = x100% ? Procalcitonin current {} IMPORTANT NOTE: Procalcitonin may be elevated without bacterial infection by physiologic stress related to trauma, ma, chronic dialysis, metastatic cancer, surgery in the past seven days, malaria, some fungal infections, and some forms of vasculitis. The interpretation algorithm may not apply to patients with immunosuppression (equivalent of >10 mg of prednisone daily), HIV with CD4 cell count < 350 cells/mm3, active malignancy on systemic chemotherapy, solid organ transplant or hematopoietic stem cell transplantation, or hospital acquired pneumonia. Additionally, some clinical trials of procalcitonin have excluded patients with shock requiring vasopressor use, acute respiratory failure requiring mechanical ventilation, or those with known lung abscess/empyema. For further information please refer to:[email or web address] Lab Interpretation Abnormal (test code = 31168-8) [facility] GLUCOSE (AUTOMATED)2019-09-13 02:20:00 Test Item Value Reference Range Interpretation Comments POCT GLU (test code = 1029334210) 227 mg/dL 70-110 H Lab Interpretation (test code = Abnormal 89724-2) [id number] 00:35:00 Test Item Value Reference Range Interpretation Comments TROPONIN I (test 0.087 ng/mL See_Comment H [Automated code = 2047366685) message] The system which generated this result transmitted reference range : <=0.034. The reference range was not used to interpret this result as normal/abnormal . JUAN LUIS (test code = Equal or Less than JUAN LUIS) 0.034 ng/ml---Normal ?Note: Cardiac troponin begins to rise 3-4 hours after the onset of ischemia. Repeat in 4-6 hours if the sample was drawn within 3-4 hours of the onset of the symptom and found normal. Between 0.035 and 0.120 ng/mL--- Borderline. Questionable myocardial injury or necrosis ? ?Note: Serial measurement may be necessary to confirm or exclude the diagnosis of myocardial injury or necrosis; Clinical correlation (symptoms, EKGs, imaging studies, and others) required; Repeat in 4-6 hours if clinically indicated. ? Equal or Higher than 0.121 ng/mL---Abnormal. Myocardial Injury or Necrosis Likely ? Biotin has been reported to cause a negative bias, interpret results relative to patient's use of biotin. ? Lab Interpretation Abnormal (test code = 28704-7) [facility] Test Item Value Reference Range Interpretation Comments MAGNESIUM (test code = 1773136523) 2.1 mg/dL 1.7-2.4 Lab Interpretation (test code = Normal 55370-0) [facility] GLUCOSE (AUTOMATED)2019-09-12 22:52:00 Test Item Value Reference Range Interpretation Comments POCT GLU (test code = 5849934786) 135 mg/dL 70-110 H Lab Interpretation (test code = Abnormal 65072-5) [facility]-09-12 19:33:00 Test Item Value Reference Range Interpretation Comments POCT GLU (test code = 9115842799) 150 mg/dL 70-110 H Lab Interpretation (test code = Abnormal 58241-3) [facility] 18:28:00 Test Item Value Reference Range Interpretation Comments APTT Patient (test See_Comment [Automat ed code = 3173-2) message] The system which generated this result transmitted reference range : 23 - 38 Seconds . The reference range was not used to interpr et this result as normal/abnormal . JUAN LUIS (test code = JUAN LUIS) The [facility] patient population mean normal value for aPTT is 30 seconds. Lab Interpretation Normal (test code = 50451-2) [facility] [id number] 16:45:37Impression:1. Left basilar atelectasis or pneumonia with small left effusion. Nocomparisons are available at time of dictation.2. Central congestion without edema. Location Code: 2831 Clinical statement: Chest pain Ordering physician: Sang Leal Chest single view. Comparison: None available at time of dictation Findings:Patchy basilar opacities left lung base and small left effusion is seen. Nopneumothorax. Central congestion without edema. Soft tissues and osseousstructures unremarkable. Cardiac silhouette is enlarged. [facility], Radiant Results Inft User - 09/12/2019 10:49 AM CSTClinical statement: Chest pain Ordering physician: Sang Mckeon single view.Comparison: None available at time of dictationFindings:Patchy basilaropacities left lung base and small left effusion is seen. Nopneumothorax. Central congestion withoutedema. Soft tissues and osseousstructures unremarkable. Cardiac silhouette is enlarged.IMPRESSIONImpr ession:1. Left basilar atelectasis or pneumonia with small left effusion. Nocomparisons are available at time of dictation.2. Central congestion without edema.Location Code: 2831 [facility] ResourcesL[facility] Acid Whole [id number] 16:20:00 Test Item Value Reference Range Interpretation Comments LACTIC ACID (test code = 1.00 mmol/L 0.5-2.2 3309911676) Lab Interpretation (test code = Normal 25887-0) [facility] [id number] 16:11:00 Test Item Value Reference Range Interpretation Comments TROPONIN I (test 0.104 ng/mL See_Comment H [Automated code = 0409856894) message] The system which generated this result transmitted reference range : <=0.034. The reference range was not used to interpret this result as normal/abnormal . JUAN LUIS (test code = Equal or Less than JUAN LUIS) 0.034 ng/ml---Normal ?Note: Cardiac troponin begins to rise 3-4 hours after the onset of ischemia. Repeat in 4-6 hours if the sample was drawn within 3-4 hours of the onset of the symptom and found normal. Between 0.035 and 0.120 ng/mL--- Borderline. Questionable myocardial injury or necrosis ? ?Note: Serial measurement may be necessary to confirm or exclude the diagnosis of myocardial injury or necrosis; Clinical correlation (symptoms, EKGs, imaging studies, and others) required; Repeat in 4-6 hours if clinically indicated. ? Equal or Higher than 0.121 ng/mL---Abnormal. Myocardial Injury or Necrosis Likely ? Biotin has been reported to cause a negative bias, interpret results relative to patient's use of biotin. ? Lab Interpretation Abnormal (test code = 58573-5) [facility]OLIC [facility] (82854)2019-09-12 16:09:00 Test Item Value Reference Range Interpretation Comments NA (test code = 135 mmol/L 135-145 7244532488) K (test code = 5.1 mmol/L 3.5-5 H 9649101554) CL (test code = 101 mmol/L 98-108 6464121623) CO2 TOTAL (test code = 27 mmol/L 23-31 8384342482) AGAP (test code = 2-16 1042868309) BUN (test code = 39 mg/dL 7-23 H 9339189860) GLUCOSE (test code = 118 mg/dL 70-110 H 2686837517) CREATININE (test code = 1.12 mg/dL 0.6-1.25 6112613654) TOTAL BILI (test code = 0.4 mg/dL 0.1-1.6 6050923198) CALCIUM (test code = 8.6 mg/dL 8.6-10.6 8915060325) T PROTEIN (test code = 6.1 g/dL 6.3-8.2 L 8754789660) ALBUMIN (test code = 3.1 g/dL 3.5-5 L 6143744491) ALK PHOS (test code = 76 U/L 34-122 1812729663) ALTv (test code = 13 U/L 5-50 1742-6) AST(SGOT) (test code = 23 U/L 13-40 4786045678) eGFR Calculation mL/min/1.73m2 (Non-) (test code = 9107981272) eGFR Calculation mL/min/1.73m2 () (test code = 7164397845) JUAN LUIS (test code = JUAN LUIS) Association of Glomerular Filtration Rate (GFR) and Staging of Kidney Disease* + --+ --+ ------+| GFR (mL/min/1.73 m2) ?| With Kidney Damage ?| ?Without Kidney Damage+ --------+ --------+ +| ?>90 ?| ?Stage one ?| ? Normal ?+ ---+ ---+ -------+| ?60-89 ?| ?Stage two ?| ? Decreased GFR ? + --+ --+ ------+| ?30-59 ?| ?Stage three ?| ? Stage three ? + --+ --+ ------+| ?15-29 ?| ?Stage four ? | ? Stage four ?+ ---+ ---+ -------+| ?<15 (or dialysis) ? ?| ?Stage five ? | ? Stage five ?+ ---+ ---+ -------+ *Each stage assumes the associated GFR level has been in effect for at least three months. ?Stages 1 to 5, with or without kidney disease, indicate chronic kidney disease. Notes: Determination of stages one and two (with eGFR >59mL/min/1.73 m2) requires estimation of kidney damage for at least three months as defined by structural or functional abnormalities of the kidney, manifested by either:Pathological abnormalities or Markers of kidney damage (including abnormalities in the composition of the blood or urine or abnormalities in imaging tests). Lab Interpretation Abnormal (test code = 12370-6) [facility] 16:09:00 Test Item Value Reference Range Interpretation Comments LIPASE (test code = 0516405369) 29 U/L 0-220 Lab Interpretation (test code = Normal 59388-9) [facility]-29 16:09:00 Test Item Value Reference Range Interpretation Comments MAGNESIUM (test code = 8447813262) 2.3 mg/dL 1.7-2.4 Lab Interpretation (test code = Normal 34068-2) [facility]MINAL [id number] 16:09:00 Test Item Value Reference Range Interpretation Comments NT-proBNP (test code 63576 pg/mL See_Comment H [Autom ated = 9082012799) message] The system which generated this result transmitted reference range : <=125. The reference range was not used to interpret this result as normal/abnormal . JUAN LUIS (test code = JUAN LUIS) Biotin has been reported to cause a negative bias, interpret results relative to patient's use of biotin. Lab Interpretation Abnormal (test code = 12432-6) [facility] HospitalPROTHR[facility] / [id number] 15:51:00 Test Item Value Reference Range Interpretation Comments PROTIME PATIENT (test See_Comment [Auto mated message] code = 5964-2) The system wh ich generated this result transmitted ref erence range: 12.0 - 1 4.7 Seconds. The re ference range was not u sed to interpret this result as normal/abnor mal. INR (test code = 6301-6) Nor mal INR <1.1; Warfarin Therap eutic range 2.0 to 3. 0 or 2.5 to 3.5, dep ending upon the indica tions. Lab Interpretation (test Normal code = 13348-8) [facility] WITH [id number] 15:42:00 Test Item Value Reference Range Interpretation Comments WBC (test code = See_Comment H [Automated 6690-2) message] The system which generated this result transmit tennille reference range : 4.20 - 10.70 10*3/?L. The reference range was not used to interpret this result as normal/abnormal . RBC (test code = See_Comment L [Automated 789-8) message] The system which generated this result transmit tennille reference range : 4.26 - 5.52 10*6/?L. The reference range was not used to interpret this result as normal/abnormal . HGB (test code = 8.5 g/dL 12.2-16.4 L 718-7) HCT (test code = 26.1 % 38.4-49.3 L 4544-3) MCV (test code = 74.4 fL 81.7-95.6 L 787-2) MCH (test code = 24.2 pg 26.1-32.7 L 785-6) MCHC (test code = 32.6 g/dL 31.2-35 786-4) RDW-SD (test code = 57.1 fL 38.5-51.6 H 52564-1) RDW-CV (test code = 22.9 % 12.1-15.4 H 788-0) PLT (test code = See_Comment H [Automated 777-3) message] The system which generated this result transmit tennille reference range : 150 - 328 10*3/ ?L. The reference range was not u sed to interpret th is result as normal/abnormal . MPV (test code = 11.1 fL 9.8-13 72874-6) NRBC/100 WBC (test See_Comment [Automat ed code = 1874117853) message] The system which generated this result transmit tennille reference range : 0.0 - 10.0 /100 WBCs. The reference range was not used to interpret this result as normal/abnormal . NRBC x10^3 (test code <0.01 See_Comment [Auto mated = 2356719955) message] The system which generated this result transmit tennille reference range : 10*3/?L. The reference range was not used to interpret this result as normal/abnormal . GRAN MAT (NEUT) % 76.8 % (test code = 770-8) IMM GRAN % (test code 0.70 % = 9054507649) LYMPH % (test code = 11.4 % 736-9) MONO % (test code = 8.6 % 5905-5) EOS % (test code = 2.0 % 713-8) BASO % (test code = 0.5 % 706-2) GRAN MAT x10^3(ANC) 11.37 10*3/uL 1.99-6.95 H (test code = 2365453023) IMM GRAN x10^3 (test 0.11 10*3/uL 0-0.06 H code = 6834265440) LYMPH x10^3 (test code 1.68 10*3/uL 1.09-3.23 = 731-0) MONO x10^3 (test code 1.28 10*3/uL 0.36-1.02 H = 742-7) EOS x10^3 (test code = 0.29 10*3/uL 0.06-0.53 711-2) BASO x10^3 (test code 0.07 10*3/uL 0.01-0.09 = 704-7) Lab Interpretation Abnormal (test code = 36300-5) [facility] GLUCOSE (AUTOMATED)2019-09-12 15:27:00 Test Item Value Reference Range Interpretation Comments POCT GLU (test code = 2247845099) 128 mg/dL 70-110 H Lab Interpretation (test code = Abnormal 44166-7) [facility] GLUCOSE (AUTOMATED)2019-09-07 18:25:00 Test Item Value Reference Range Interpretation Comments POCT GLU (test code = 9557879438) 92 mg/dL 70-110 Lab Interpretation (test code = Normal 61572-4) [facility] GLUCOSE (AUTOMATED)2019-09-07 14:39:00 Test Item Value Reference Range Interpretation Comments POCT GLU (test code = 0830738943) 118 mg/dL 70-110 H Lab Interpretation (test code = Abnormal 23237-7) [facility] GLUCOSE (AUTOMATED)2019-09-07 03:00:00 Test Item Value Reference Range Interpretation Comments POCT GLU (test code = 9511167082) 111 mg/dL 70-110 H Lab Interpretation (test code = Abnormal 69452-5) [facility] GLUCOSE (AUTOMATED)2019-09-06 23:30:00 Test Item Value Reference Range Interpretation Comments POCT GLU (test code = 8885043828) 66 mg/dL 70-110 L Lab Interpretation (test code = Abnormal 64233-2) [facility] GLUCOSE (AUTOMATED)2019-09-06 18:24:00 Test Item Value Reference Range Interpretation Comments POCT GLU (test code = 9098800625) 94 mg/dL 70-110 Lab Interpretation (test code = Normal 55169-7) [facility] GLUCOSE (AUTOMATED)2019-09-06 14:00:00 Test Item Value Reference Range Interpretation Comments POCT GLU (test code = 4393090640) 158 mg/dL 70-110 H Lab Interpretation (test code = Abnormal 95652-6) [facility] METABOLIC PANEL (NA, K, CL, CO2, GLUCOSE, BUN, CREATININE, CA)2019-09-06 07:25:00 Test Item Value Reference Range Interpretation Comments NA (test code = 134 mmol/L 135-145 L 9988079101) K (test code = 4.1 mmol/L 3.5-5 6940004493) CL (test code = 101 mmol/L 98-108 3736143839) CO2 TOTAL (test code = 27 mmol/L 23-31 2499949298) AGAP (test code = 2-16 4050037158) BUN (test code = 44 mg/dL 7-23 H 3358757673) GLUCOSE (test code = 138 mg/dL 70-110 H 1736188759) CREATININE (test code = 0.95 mg/dL 0.6-1.25 7464621816) CALCIUM (test code = 7.6 mg/dL 8.6-10.6 L 3630569802) eGFR Calculation mL/min/1.73m2 (Non-) (test code = 9235663563) eGFR Calculation mL/min/1.73m2 () (test code = 7470809408) JUAN LUIS (test code = JUAN LUIS) Association of Glomerular Filtration Rate (GFR) and Staging of Kidney Disease* + --+ --+ ------+| GFR (mL/min/1.73 m2) ?| With Kidney Damage ?| ?Without Kidney Damage+ --------+ --------+ +| ?>90 ?| ?Stage one ?| ? Normal ?+ ---+ ---+ -------+| ?60-89 ?| ?Stage two ?| ? Decreased GFR ? + --+ --+ ------+| ?30-59 ?| ?Stage three ?| ? Stage three ? + --+ --+ ------+| ?15-29 ?| ?Stage four ? | ? Stage four ?+ ---+ ---+ -------+| ?<15 (or dialysis) ? ?| ?Stage five ? | ? Stage five ?+ ---+ ---+ -------+ *Each stage assumes the associated GFR level has been in effect for at least three months. ?Stages 1 to 5, with or without kidney disease, indicate chronic kidney disease. Notes: Determination of stages one and two (with eGFR >59mL/min/1.73 m2) requires estimation of kidney damage for at least three months as defined by structural or functional abnormalities of the kidney, manifested by either:Pathological abnormalities or Markers of kidney damage (including abnormalities in the composition of the blood or urine or abnormalities in imaging tests). Lab Interpretation Abnormal (test code = 16248-2) [facility] 07:25:00 Test Item Value Reference Range Interpretation Comments PHOSPHORUS (test code = 5600586338) 2.6 mg/dL 2.5-5 Lab Interpretation (test code = Normal 75764-1) [facility] WITH [id number] 07:10:00 Test Item Value Reference Range Interpretation Comments WBC (test code = See_Comment [Automated 0590-2) message] The sy stem which generated this result transmitted reference range : 4.20 - 10.70 10*3/?L. The reference range was not used to interpret this result as normal/abnormal . RBC (test code = See_Comment L [Automated 109-8) message] The sy stem which generated this result transmitted reference range : 4.26 - 5.52 10*6/?L. The reference range was not used to interpret this result as normal/abnormal . HGB (test code = 7.8 g/dL 12.2-16.4 L 718-7) HCT (test code = 24.5 % 38.4-49.3 L 4544-3) MCV (test code = 76.3 fL 81.7-95.6 L 787-2) MCH (test code = 24.3 pg 26.1-32.7 L 785-6) MCHC (test code = 31.8 g/dL 31.2-35 786-4) RDW-SD (test code = 59.2 fL 38.5-51.6 H 78872-2) RDW-CV (test code = 22.7 % 12.1-15.4 H 788-0) PLT (test code = See_Comment [Automated 777-3) message] The sy stem which generated this result transmitted reference range : 150 - 328 10*3/ ?L. The reference r christine was not used to interpret this result as normal/abnormal . MPV (test code = 11.4 fL 9.8-13 29798-1) NRBC/100 WBC (test See_Comment [Automat ed code = 9619611137) message] The system which generated this result transmitted reference range : 0.0 - 10.0 /100 WBCs. The refer ence range was not u sed to interpret th is result as normal/abnormal . NRBC x10^3 (test code <0.01 See_Comment [Auto mated = 3524096903) message] The s ystem which generated this result transmitted reference range : 10*3/?L. The reference range was not used to interpret this result as normal/abnormal . GRAN MAT (NEUT) % 73.2 % (test code = 770-8) IMM GRAN % (test code 0.50 % = 4941091636) LYMPH % (test code = 11.5 % 736-9) MONO % (test code = 11.2 % 5905-5) EOS % (test code = 3.3 % 713-8) BASO % (test code = 0.3 % 706-2) GRAN MAT x10^3(ANC) 7.78 10*3/uL 1.99-6.95 H (test code = 0236596595) IMM GRAN x10^3 (test 0.05 10*3/uL 0-0.06 code = 2325994732) LYMPH x10^3 (test code 1.22 10*3/uL 1.09-3.23 = 731-0) MONO x10^3 (test code 1.19 10*3/uL 0.36-1.02 H = 742-7) EOS x10^3 (test code = 0.35 10*3/uL 0.06-0.53 711-2) BASO x10^3 (test code 0.03 10*3/uL 0.01-0.09 = 704-7) Lab Interpretation Abnormal (test code = 92075-6) [facility] [id number] 01:35:34Impression: 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 Stablefindings include sternotomy wires, obl iteration of the left hemidiaphragmand the left costophrenic angle. No new infiltrate or pneumothorax is seen.The bones are osteopenic. The upper abdomen is unremarkable. [facility], Radiant Results Inft User - 09/05/2019 7:36 PM CSTExam: XR CHEST 1 VWClinical History: s/p cabg Comparison: September 04, 2019Findings: Single frontal view of the chest is compared to the prior study. Stablefindings include sternotomy wires, obliteration of the left hemidiaphragmand the left costophrenic angle. No new infiltrate or pneumothorax is seen.The bones are osteopenic. 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..[facility] GLUCOSE (AUTOMATED)2019-09-06 01:25:00 Test Item Value Reference Range Interpretation Comments POCT GLU (test code = 6442062549) 98 mg/dL 70-110 Lab Interpretation (test code = Normal 65215-7) [facility] GLUCOSE (AUTOMATED)2019-09-05 23:11:00 Test Item Value Reference Range Interpretation Comments POCT GLU (test code = 7065312925) 76 mg/dL 70-110 Lab Interpretation (test code = Normal 54492-2) [facility] GLUCOSE (AUTOMATED)2019-09-05 18:45:00 Test Item Value Reference Range Interpretation Comments POCT GLU (test code = 3975714812) 99 mg/dL 70-110 Lab Interpretation (test code = Normal 88674-9) [facility] GLUCOSE (AUTOMATED)2019-09-05 13:48:00 Test Item Value Reference Range Interpretation Comments POCT GLU (test code = 4734515201) 229 mg/dL 70-110 H Lab Interpretation (test code = Abnormal 59941-7) [facility] 10:04:00 Test Item Value Reference Range Interpretation Comments PHOSPHORUS (test code = 9414725762) 3.4 mg/dL 2.5-5 Lab Interpretation (test code = Normal 70558-1) [facility] (NA, K, CL, CO2, GLUCOSE, BUN, CREATININE, CA)2019-09-05 10:04:00 Test Item Value Reference Range Interpretation Comments NA (test code = 135 mmol/L 135-145 1602909422) K (test code = 3.7 mmol/L 3.5-5 0487646954) CL (test code = 103 mmol/L 98-108 4804646164) CO2 TOTAL (test code = 26 mmol/L 23-31 5136004821) AGAP (test code = 2-16 6090833685) BUN (test code = 40 mg/dL 7-23 H 6055422106) GLUCOSE (test code = 173 mg/dL 70-110 H 4442802523) CREATININE (test code = 1.17 mg/dL 0.6-1.25 2224409423) CALCIUM (test code = 7.4 mg/dL 8.6-10.6 L 7728555294) eGFR Calculation mL/min/1.73m2 (Non-) (test code = 2218440809) eGFR Calculation mL/min/1.73m2 () (test code = 2591211976) JUAN LUIS (test code = JUAN LUIS) Association of Glomerular Filtration Rate (GFR) and Staging of Kidney Disease* + --+ --+ ------+| GFR (mL/min/1.73 m2) ?| With Kidney Damage ?| ?Without Kidney Damage+ --------+ --------+ +| ?>90 ?| ?Stage one ?| ? Normal ?+ ---+ ---+ -------+| ?60-89 ?| ?Stage two ?| ? Decreased GFR ? + --+ --+ ------+| ?30-59 ?| ?Stage three ?| ? Stage three ? + --+ --+ ------+| ?15-29 ?| ?Stage four ? | ? Stage four ?+ ---+ ---+ -------+| ?<15 (or dialysis) ? ?| ?Stage five ? | ? Stage five ?+ ---+ ---+ -------+ *Each stage assumes the associated GFR level has been in effect for at least three months. ?Stages 1 to 5, with or without kidney disease, indicate chronic kidney disease. Notes: Determination of stages one and two (with eGFR >59mL/min/1.73 m2) requires estimation of kidney damage for at least three months as defined by structural or functional abnormalities of the kidney, manifested by either:Pathological abnormalities or Markers of kidney damage (including abnormalities in the composition of the blood or urine or abnormalities in imaging tests). Lab Interpretation Abnormal (test code = 70964-9) [facility] 10:04:00 Test Item Value Reference Range Interpretation Comments MAGNESIUM (test code = 1295596487) 2.2 mg/dL 1.7-2.4 Lab Interpretation (test code = Normal 43480-8) [facility] WITH [id number] 09:53:00 Test Item Value Reference Range Interpretation Comments WBC (test code = See_Comment H [Automated 6790-2) message] The sy stem which generated this result transmitted reference range : 4.20 - 10.70 10*3/?L. The reference range was not used to interpret this result as normal/abnormal . RBC (test code = See_Comment L [Automated 509-8) message] The sy stem which generated this result transmitted reference range : 4.26 - 5.52 10*6/?L. The reference range was not used to interpret this result as normal/abnormal . HGB (test code = 7.9 g/dL 12.2-16.4 L 718-7) HCT (test code = 23.4 % 38.4-49.3 L 4544-3) MCV (test code = 73.1 fL 81.7-95.6 L 787-2) MCH (test code = 24.7 pg 26.1-32.7 L 785-6) MCHC (test code = 33.8 g/dL 31.2-35 786-4) RDW-SD (test code = 55.0 fL 38.5-51.6 H 74597-4) RDW-CV (test code = 22.1 % 12.1-15.4 H 788-0) PLT (test code = See_Comment L [Automated 777-3) message] The sy stem which generated this result transmitted reference range : 150 - 328 10*3/ ?L. The reference r christine was not used to interpret this result as normal/abnormal . MPV (test code = 10.6 fL 9.8-13 83591-6) NRBC/100 WBC (test See_Comment [Automat ed code = 4701322209) message] The system which generated this result transmitted reference range : 0.0 - 10.0 /100 WBCs. The refer ence range was not u sed to interpret th is result as normal/abnormal . NRBC x10^3 (test code <0.01 See_Comment [Auto mated = 0423253084) message] The s ystem which generated this result transmitted reference range : 10*3/?L. The reference range was not used to interpret this result as normal/abnormal . GRAN MAT (NEUT) % 78.0 % (test code = 770-8) IMM GRAN % (test code 0.70 % = 9235574354) LYMPH % (test code = 8.8 % 736-9) MONO % (test code = 10.6 % 5905-5) EOS % (test code = 1.6 % 713-8) BASO % (test code = 0.3 % 706-2) GRAN MAT x10^3(ANC) 9.06 10*3/uL 1.99-6.95 H (test code = 4111972213) IMM GRAN x10^3 (test 0.08 10*3/uL 0-0.06 H code = 6103009067) LYMPH x10^3 (test code 1.02 10*3/uL 1.09-3.23 L = 731-0) MONO x10^3 (test code 1.23 10*3/uL 0.36-1.02 H = 742-7) EOS x10^3 (test code = 0.18 10*3/uL 0.06-0.53 711-2) BASO x10^3 (test code 0.03 10*3/uL 0.01-0.09 = 704-7) Lab Interpretation Abnormal (test code = 28394-9) [facility] GLUCOSE (AUTOMATED)2019-09-05 05:58:00 Test Item Value Reference Range Interpretation Comments POCT GLU (test code = 1748519374) 160 mg/dL 70-110 H Lab Interpretation (test code = Abnormal 49920-7) [facility] GLUCOSE (AUTOMATED)2019-09-05 03:22:00 Test Item Value Reference Range Interpretation Comments POCT GLU (test code = 0371166231) 56 mg/dL 70-110 L Lab Interpretation (test code = Abnormal 72185-4) [facility] GLUCOSE (AUTOMATED)2019-09-05 03:22:00 Test Item Value Reference Range Interpretation Comments POCT GLU (test code = 3238536239) 103 mg/dL 70-110 Lab Interpretation (test code = Normal 34799-0) [facility] GLUCOSE (AUTOMATED)2019-09-05 02:41:00 Test Item Value Reference Range Interpretation Comments POCT GLU (test code = 5239920747) 98 mg/dL 70-110 Lab Interpretation (test code = Normal 87712-3) [facility] GLUCOSE (AUTOMATED)2019-09-04 18:03:00 Test Item Value Reference Range Interpretation Comments POCT GLU (test code = 9018646687) 173 mg/dL 70-110 H Lab Interpretation (test code = Abnormal 74603-3) [facility] [id number] 14:25:52 No acute intrathoracic abnormality. PROCEDURE: XR CHEST 1 VW CLINICAL INDICATION: s/p CABG COMPARISON: Chest x-ray dated 09/03/2019 FINDINGS: Right internal catheter venous catheter sheath terminates in the superiorvena cava. Subsegmental atelectasis are seen in the left lower lung zone.No pneumothorax. No pleural effusion. Left hemidiaphragm is elevated. Mildcardiomegaly. Atherosclerotic calcifications in the aortic arc. No acute osseous abnormality. Sternotomy sutures are noted. [facility], Radiant Results Inft User - 09/04/2019 8:27 AM CSTPROCEDURE: XR CHEST 1 VWCLINICAL INDICATION: s/p CABG COMPARISON: Chest x-ray dated 09/03/2019FINDINGS:Right internal catheter venous catheter sheath terminates in the superiorvena cava. Subsegmental atelectasis are seen in the left lower lung zone.No pneumothorax. No pleural effusion. Left hemidiaphragm is elevated. Mildcardiomegaly. Atherosclerotic calcifications in the aortic arc. No acute osseous abnormality. Sternotomy sutures are noted.IMPRESSIONNo acute intrathoracic abnormality.[facility] GLUCOSE (AUTOMATED)2019-09-04 14:18:00 Test Item Value Reference Range Interpretation Comments POCT GLU (test code = 9002725594) 198 mg/dL 70-110 H Lab Interpretation (test code = Abnormal 62125-0) [id number] 13:12:00 Test Item Value Reference Range Interpretation Comments IONIZED CA (test code = 4.60 mg/dL 4.5-5.3 9275049556) PH SERUM (test code = 0618925954) 7.35-7.45 H Lab Interpretation (test code = Abnormal 62993-7) [facility] WITH [id number] 11:39:00 Test Item Value Reference Range Interpretation Comments WBC (test code = See_Comment H [Automated 2190-2) message] The system which generated this result transmit tennille reference range : 4.20 - 10.70 10*3/?L. The reference range was not used to interpret this result as normal/abnormal . RBC (test code = See_Comment L [Automated 019-8) message] The system which generated this result transmit tennille reference range : 4.26 - 5.52 10*6/?L. The reference range was not used to interpret this result as normal/abnormal . HGB (test code = 8.1 g/dL 12.2-16.4 L 718-7) HCT (test code = 24.4 % 38.4-49.3 L 4544-3) MCV (test code = 74.4 fL 81.7-95.6 L 787-2) MCH (test code = 24.7 pg 26.1-32.7 L 785-6) MCHC (test code = 33.2 g/dL 31.2-35 786-4) RDW-SD (test code = 56.0 fL 38.5-51.6 H 73759-6) RDW-CV (test code = 21.9 % 12.1-15.4 H 788-0) PLT (test code = See_Comment [Automated 777-3) message] The system which generated this result transmit tennille reference range : 150 - 328 10*3/ ?L. The reference range was not u sed to interpret th is result as normal/abnormal . MPV (test code = 11.4 fL 9.8-13 17557-0) NRBC/100 WBC (test See_Comment [Automat ed code = 3795335840) message] The system which generated this result transmit tennille reference range : 0.0 - 10.0 /100 WBCs. The reference range was not used to interpret this result as normal/abnormal . NRBC x10^3 (test code <0.01 See_Comment [Auto mated = 1099415568) message] The system which generated this result transmit tennille reference range : 10*3/?L. The reference range was not used to interpret this result as normal/abnormal . SEG % (test code = 88 % 33-76 H 08866-4) BAND % (test code = 3 % 0-1 H 72997-9) LYMPH % (test code = 6 % 14-54 L 15264-7) MONO % (test code = 3 % 0-4 53835-8) ANC (test code = 12.63 10*3/uL 1.99-6.95 H 6773612979) YVES CELLS (test code 2+ See_Comment A [Auto mated = 7790-9) message] The system which generated this result transmit tennille reference range : (none). The reference range was not used to interpret this result as normal/abnormal . ELLIPTO/OVAL (test 2+ See_Comment A [Automat ed code = 66501-0) message] The system which generated this result transmit tennille reference range : (none). The reference range was not used to interpret this result as normal/abnormal . SCHISTOCYTES (test 1+ A code = 800-3) TOXIC CHANGES (test Present A code = 803-7) PLT ESTIMATE (test Normal Normal code = 9317-9) Lab Interpretation Abnormal (test code = 30694-5) [facility] METABOLIC PANEL (NA, K, CL, CO2, GLUCOSE, BUN, CREATININE, CA)2019-09-04 11:26:00 Test Item Value Reference Range Interpretation Comments NA (test code = 136 mmol/L 135-145 0525940823) K (test code = 3.4 mmol/L 3.5-5 L 5118860932) CL (test code = 103 mmol/L 98-108 7768078194) CO2 TOTAL (test code = 26 mmol/L 23-31 5963275063) AGAP (test code = 2-16 3522155993) BUN (test code = 42 mg/dL 7-23 H 5635525760) GLUCOSE (test code = 184 mg/dL 70-110 H 5968204257) CREATININE (test code = 1.14 mg/dL 0.6-1.25 8656027755) CALCIUM (test code = 8.0 mg/dL 8.6-10.6 L 7226540337) eGFR Calculation mL/min/1.73m2 (Non-) (test code = 7222101453) eGFR Calculation mL/min/1.73m2 () (test code = 4336273784) JUAN LUIS (test code = JUAN LUIS) Association of Glomerular Filtration Rate (GFR) and Staging of Kidney Disease* + --+ --+ ------+| GFR (mL/min/1.73 m2) ?| With Kidney Damage ?| ?Without Kidney Damage+ --------+ --------+ +| ?>90 ?| ?Stage one ?| ? Normal ?+ ---+ ---+ -------+| ?60-89 ?| ?Stage two ?| ? Decreased GFR ? + --+ --+ ------+| ?30-59 ?| ?Stage three ?| ? Stage three ? + --+ --+ ------+| ?15-29 ?| ?Stage four ? | ? Stage four ?+ ---+ ---+ -------+| ?<15 (or dialysis) ? ?| ?Stage five ? | ? Stage five ?+ ---+ ---+ -------+ *Each stage assumes the associated GFR level has been in effect for at least three months. ?Stages 1 to 5, with or without kidney disease, indicate chronic kidney disease. Notes: Determination of stages one and two (with eGFR >59mL/min/1.73 m2) requires estimation of kidney damage for at least three months as defined by structural or functional abnormalities of the kidney, manifested by either:Pathological abnormalities or Markers of kidney damage (including abnormalities in the composition of the blood or urine or abnormalities in imaging tests). Lab Interpretation Abnormal (test code = 90617-0) [facility] Test Item Value Reference Range Interpretation Comments MAGNESIUM (test code = 8979077155) 2.0 mg/dL 1.7-2.4 Lab Interpretation (test code = Normal 55958-0) [facility] GLUCOSE (AUTOMATED)2019-09-04 11:05:00 Test Item Value Reference Range Interpretation Comments POCT GLU (test code = 8590410461) 202 mg/dL 70-110 H Lab Interpretation (test code = Abnormal 58857-5) [facility] GLUCOSE (AUTOMATED)2019-09-04 09:12:00 Test Item Value Reference Range Interpretation Comments POCT GLU (test code = 9926775900) 190 mg/dL 70-110 H Lab Interpretation (test code = Abnormal 66331-0) [facility] GLUCOSE (AUTOMATED)2019-09-04 05:59:00 Test Item Value Reference Range Interpretation Comments POCT GLU (test code = 4256624880) 144 mg/dL 70-110 H Lab Interpretation (test code = Abnormal 18969-8) [facility] GLUCOSE (AUTOMATED)2019-09-04 03:37:00 Test Item Value Reference Range Interpretation Comments POCT GLU (test code = 3906776995) 138 mg/dL 70-110 H Lab Interpretation (test code = Abnormal 22272-7) [facility] GLUCOSE (AUTOMATED)2019-09-04 02:36:00 Test Item Value Reference Range Interpretation Comments POCT GLU (test code = 54 mg/dL 70-110 L Notifi ed Provider [id number]) Lab Interpretation (test Abnormal code = 49560-0) [facility] GLUCOSE (AUTOMATED)2019-09-04 02:35:00 Test Item Value Reference Range Interpretation Comments POCT GLU (test code = 9631703153) 137 mg/dL 70-110 H Lab Interpretation (test code = Abnormal 92330-2) [facility] GLUCOSE (AUTOMATED)2019-09-03 23:29:00 Test Item Value Reference Range Interpretation Comments POCT GLU (test code = 1275862569) 68 mg/dL 70-110 L Lab Interpretation (test code = Abnormal 03151-1) [facility] GLUCOSE (AUTOMATED)2019-09-03 23:06:00 Test Item Value Reference Range Interpretation Comments POCT GLU (test code = 5607529206) 69 mg/dL 70-110 L Lab Interpretation (test code = Abnormal 26337-2) [facility] [id number] 22:57:22 Mild residual atelectasis. No definite pneumothorax. Right IJ central venous catheter sheath terminates in the mid SVC. PROCEDURE: XR CHEST 1 VW CLINICAL INDICATION: S/p ct removal COMPARISON: 09/03/2019 at 5:19 AM FINDINGS: Right IJ central venous catheter sheath terminates in the mid SVC. Mildleftbasilar opacity, likely residual atelectasis. Interval removal oftubes as seen on prior examination.No definite pneumothorax.. No pleuraleffusion or pneumothorax is seen. The heart is normal in size. No acute bony abnormality. [facility], Radiant Results Inft User - 09/03/2019 4:58 PM CSTPROCEDURE: XR CHEST 1 VWCLINICAL INDICATION: S/p ct removal COMPARISON: 09/03/2019 at 5:19 AMFINDINGS:Right IJ central venous catheter sheath terminates in the mid SVC. Mildleft basilar opacity, likely residual atelectasis. Interval removal oftubes as seen on prior examination. No definite pneumothorax.. No pleuraleffusion or pneumothorax is seen. The heart is normal in size.No acute bony abnormality.IMPRESSIONMild residual atelectasis. No definite pneumothorax.Right IJ central venous catheter sheath terminates in the mid SVC.[facility] GLUCOSE (AUTOMATED)2019-09-03 17:30:00 Test Item Value Reference Range Interpretation Comments POCT GLU (test code = 0634424103) 108 mg/dL 70-110 Lab Interpretation (test code = Normal 17525-8) [facility] [id number] 15:06:00EXAM: XR CHEST 1 VW HISTORY: s/p cabg COMPARISON: None. FINDINGS: Chest tubes drain the pleural space on each side, and a mediastinal drainis in the expected position. The Montrose-Juhi catheter was removed. The tip ofthe right IJ line is in the superior vena cava ?The heart is upper limit ofnormal in size or slightly enlarged to the left, probably the latter. Thelungs are moderately well expanded and clear except for very minor hilarvascular congestion. No pleural effusion or pneumothorax is detected.[facility], Radiant Results Inft User - 09/03/2019 9:07 AM CSTEXAM: XR CHEST 1 VWHISTORY: s/p cabg COMPARISON: None.FINDINGS:Chest tubes drain the pleural space on each side, and a mediastinal drainis in theexpected position. The Montrose-Juhi catheter was removed. The tip ofthe right IJ line is in the superior vena cava The heart is upper limit ofnormal in size or slightly enlarged to the left, probably thelatter. Thelungs are moderately well expanded and clear except for very minor hilarvascular congestion. No pleural effusion or pneumothorax is detected.[facility]2019-09-[facility] 14:42:00 Test Item Value Reference Range Interpretation Comments POCT GLU (test code = 136 mg/dL 70-110 H Notifi ed Provider [id number]) Lab Interpretation (test Abnormal code = 31783-3) [facility] WITH [id number] 10:31:00 Test Item Value Reference Range Interpretation Comments WBC (test code = See_Comment H [Automated 0290-2) message] The system which generated this result transmit tennille reference range : 4.20 - 10.70 10*3/?L. The reference range was not used to interpret this result as normal/abnormal . RBC (test code = See_Comment L [Automated 929-8) message] The system which generated this result transmit tenn[place] reference range : 4.26 - 5.52 10*6/?L. The reference range was not used to interpret this result as normal/abnormal . HGB (test code = 8.7 g/dL 12.2-16.4 L 718-7) HCT (test code = 26.4 % 38.4-49.3 L 4544-3) MCV (test code = 72.5 fL 81.7-95.6 L 787-2) MCH (test code = 23.9 pg 26.1-32.7 L 785-6) MCHC (test code = 33.0 g/dL 31.2-35 786-4) RDW-SD (test code = 53.7 fL 38.5-51.6 H 59504-4) RDW-CV (test code = 21.4 % 12.1-15.4 H 788-0) PLT (test code = See_Comment [Automated 777-3) message] The system which generated this result transmit tennille reference range : 150 - 328 10*3/ ?L. The reference range was not u sed to interpret th is result as normal/abnormal . MPV (test code = 11.5 fL 9.8-13 58993-2) NRBC/100 WBC (test See_Comment [Automat ed code = 8965866947) message] The system which generated this result transmit tennille reference range : 0.0 - 10.0 /100 WBCs. The reference range was not used to interpret this result as normal/abnormal . NRBC x10^3 (test code <0.01 See_Comment [Auto mated = 9394097664) message] The system which generated this result transmit tennille reference range : 10*3/?L. The reference range was not used to interpret this result as normal/abnormal . GRAN MAT (NEUT) % 84.6 % (test code = 770-8) IMM GRAN % (test code 0.60 % = 1739927444) LYMPH % (test code = 4.2 % 736-9) MONO % (test code = 10.5 % 5905-5) EOS % (test code = 0.0 % 713-8) BASO % (test code = 0.1 % 706-2) GRAN MAT x10^3(ANC) 14.72 10*3/uL 1.99-6.95 H (test code = 1776760929) IMM GRAN x10^3 (test 0.11 10*3/uL 0-0.06 H code = 2444029316) LYMPH x10^3 (test code 0.74 10*3/uL 1.09-3.23 L = 731-0) MONO x10^3 (test code 1.83 10*3/uL 0.36-1.02 H = 742-7) EOS x10^3 (test code = <0.03 0.06-0.53 L 711-2) BASO x10^3 (test code <0.03 0.01-0.09 = 704-7) BASO STIPPLING (test Present A code = 703-9) SCHISTOCYTES (test 1+ A code = 800-3) Lab Interpretation Abnormal (test code = 54191-3) [facility] METABOLIC PANEL (NA, K, CL, CO2, GLUCOSE, BUN, CREATININE, CA)2019-09-03 10:19:00 Test Item Value Reference Range Interpretation Comments NA (test code = 137 mmol/L 135-145 8545534372) K (test code = 4.0 mmol/L 3.5-5 7977813327) CL (test code = 104 mmol/L 98-108 0134412465) CO2 TOTAL (test code = 24 mmol/L 23-31 8809237809) AGAP (test code = 2-16 6211672049) BUN (test code = 51 mg/dL 7-23 H 8385270961) GLUCOSE (test code = 204 mg/dL 70-110 H 9617269771) CREATININE (test code = 1.72 mg/dL 0.6-1.25 H 1264585772) CALCIUM (test code = 8.6 mg/dL 8.6-10.6 0753452936) eGFR Calculation mL/min/1.73m2 (Non-) (test code = 2928436173) eGFR Calculation mL/min/1.73m2 () (test code = 3618954607) JUAN LUIS (test code = JUAN LUIS) Association of Glomerular Filtration Rate (GFR) and Staging of Kidney Disease* + --+ --+ ------+| GFR (mL/min/1.73 m2) ?| With Kidney Damage ?| ?Without Kidney Damage+ --------+ --------+ +| ?>90 ?| ?Stage one ?| ? Normal ?+ ---+ ---+ -------+| ?60-89 ?| ?Stage two ?| ? Decreased GFR ? + --+ --+ ------+| ?30-59 ?| ?Stage three ?| ? Stage three ? + --+ --+ ------+| ?15-29 ?| ?Stage four ? | ? Stage four ?+ ---+ ---+ -------+| ?<15 (or dialysis) ? ?| ?Stage five ? | ? Stage five ?+ ---+ ---+ -------+ *Each stage assumes the associated GFR level has been in effect for at least three months. ?Stages 1 to 5, with or without kidney disease, indicate chronic kidney disease. Notes: Determination of stages one and two (with eGFR >59mL/min/1.73 m2) requires estimation of kidney damage for at least three months as defined by structural or functional abnormalities of the kidney, manifested by either:Pathological abnormalities or Markers of kidney damage (including abnormalities in the composition of the blood or urine or abnormalities in imaging tests). Lab Interpretation Abnormal (test code = 95237-2) [facility] 10:19:00 Test Item Value Reference Range Interpretation Comments MAGNESIUM (test code = 2851151674) 2.5 mg/dL 1.7-2.4 H Lab Interpretation (test code = Abnormal 22119-4) [facility] GLUCOSE (AUTOMATED)2019-09-03 09:37:00 Test Item Value Reference Range Interpretation Comments POCT GLU (test code = 283 mg/dL 70-110 H Notifi ed Provider [id number]) Lab Interpretation (test Abnormal code = 07128-4) [facility] GLUCOSE (AUTOMATED)2019-09-03 09:12:00 Test Item Value Reference Range Interpretation Comments POCT GLU (test code = 0801263505) 240 mg/dL 70-110 H Lab Interpretation (test code = Abnormal 66696-0) [facility] GLUCOSE (AUTOMATED)2019-09-03 06:11:00 Test Item Value Reference Range Interpretation Comments POCT GLU (test code = 5835804859) 309 mg/dL 70-110 H Lab Interpretation (test code = Abnormal 57758-4) [facility] GLUCOSE (AUTOMATED)2019-09-02 22:21:00 Test Item Value Reference Range Interpretation Comments POCT GLU (test code = 6674457106) 281 mg/dL 70-110 H Lab Interpretation (test code = Abnormal 86689-2) [facility] GLUCOSE (AUTOMATED)2019-09-02 18:57:00 Test Item Value Reference Range Interpretation Comments POCT GLU (test code = 6606129057) 244 mg/dL 70-110 H Lab Interpretation (test code = Abnormal 20705-0) [facility]MR[facility] / MSSA Screen by Britney [id number] 17:19:00 Test Item Value Reference Range Interpretation Comments MSSA Screen by Britney MTZ (test code Negative Negative = 15911-3) MRSA/MSSA Positive? (test code = No No 4051481857) Lab Interpretation (test code = Normal 64772-3) [facility] 1 [id number] 15:38:43EXAM: XR CHEST 1 VW HISTORY: s/p open heart surgery COMPARISON: None. FINDINGS: The heart is slightly enlarged, not different than noted previously. Thetip of the Montrose-Juhi catheter is in the main pulmonary artery. A chest tubedrains the pleural space on the right and a mediastinal drain is in place.The endotracheal tube was removed. The chest tube on the left was removed.The lungs are moderately well expanded and clear.[facility], Radiant Results Inft - 09/02/2019 9:39 AM CSTEXAM: XR CHEST 1 VWHISTORY: s/p open heart surgery COMPARISON: None.FINDINGS:The heart is slightly enlarged, not different than noted previously. Thetip of the Montrose-Juhi catheter is in the main pulmonary artery. A chest tubedrains the pleural space on the right and a mediastinal drain is in place.The endotracheal tube was removed. The chest tube on the left was removed.The lungs are moderately well expanded and clear.[facility] GLUCOSE (AUTOMATED)2019-09-02 13:46:00 Test Item Value Reference Range Interpretation Comments POCT GLU (test code = 8612092378) 157 mg/dL 70-110 H Lab Interpretation (test code = Abnormal 17454-0) [facility] GLUCOSE (AUTOMATED)2019-09-02 10:17:00 Test Item Value Reference Range Interpretation Comments POCT GLU (test code = 1320826724) 149 mg/dL 70-110 H Lab Interpretation (test code = Abnormal 07452-6) [facility] GLUCOSE (AUTOMATED)2019-09-02 10:17:00 Test Item Value Reference Range Interpretation Comments POCT GLU (test code = 5447031274) 109 mg/dL 70-110 Lab Interpretation (test code = Normal 32805-1) [facility]-19 07:38:00 Test Item Value Reference Range Interpretation Comments MAGNESIUM (test code = 4800527092) 2.6 mg/dL 1.7-2.4 H Lab Interpretation (test code = Abnormal 24982-6) [facility] METABOLIC PANEL (NA, K, CL, CO2, GLUCOSE, BUN, CREATININE, CA)2019-09-02 07:38:00 Test Item Value Reference Range Interpretation Comments NA (test code = 137 mmol/L 135-145 6996150046) K (test code = 4.6 mmol/L 3.5-5 9795236831) CL (test code = 108 mmol/L 98-108 2756543077) CO2 TOTAL (test code = 23 mmol/L 23-31 2748046942) AGAP (test code = 2-16 7530650577) BUN (test code = 40 mg/dL 7-23 H 2545750235) GLUCOSE (test code = 120 mg/dL 70-110 H 6389892101) CREATININE (test code = 1.72 mg/dL 0.6-1.25 H 0595671413) CALCIUM (test code = 8.1 mg/dL 8.6-10.6 L 2804636883) eGFR Calculation mL/min/1.73m2 (Non-) (test code = 6719037304) eGFR Calculation mL/min/1.73m2 () (test code = 9528671343) JUAN LUIS (test code = JUAN LUIS) Association of Glomerular Filtration Rate (GFR) and Staging of Kidney Disease* + --+ --+ ------+| GFR (mL/min/1.73 m2) ?| With Kidney Damage ?| ?Without Kidney Damage+ --------+ --------+ +| ?>90 ?| ?Stage one ?| ? Normal ?+ ---+ ---+ -------+| ?60-89 ?| ?Stage two ?| ? Decreased GFR ? + --+ --+ ------+| ?30-59 ?| ?Stage three ?| ? Stage three ? + --+ --+ ------+| ?15-29 ?| ?Stage four ? | ? Stage four ?+ ---+ ---+ -------+| ?<15 (or dialysis) ? ?| ?Stage five ? | ? Stage five ?+ ---+ ---+ -------+ *Each stage assumes the associated GFR level has been in effect for at least three months. ?Stages 1 to 5, with or without kidney disease, indicate chronic kidney disease. Notes: Determination of stages one and two (with eGFR >59mL/min/1.73 m2) requires estimation of kidney damage for at least three months as defined by structural or functional abnormalities of the kidney, manifested by either:Pathological abnormalities or Markers of kidney damage (including abnormalities in the composition of the blood or urine or abnormalities in imaging tests). Lab Interpretation Abnormal (test code = 27580-4) [facility]PH[facility]2020-[facility] 07:38:00 Test Item Value Reference Range Interpretation Comments PHOSPHORUS (test code = 4348046472) 4.5 mg/dL 2.5-5 Lab Interpretation (test code = Normal 78824-0) [facility] HospitalHEPAT[facility] (69122[facility] (ALB,T.PRO,BILI T,BU/BC,ALT,AST,ALK PHOS)2019-09-02 07:38:00 Test Item Value Reference Range Interpretation Comments TOTAL BILI (test code = 0190324806) 0.2 mg/dL 0.1-1.1 BILI UNCON (test code = 5098586709) 0.2 mg/dL 0.1-1.1 BILI CONJ (test code = 0613255608) 0.0 mg/dL 0-0.3 T PROTEIN (test code = 1528042731) 4.7 g/dL 6.3-8.2 L ALBUMIN (test code = 6211200095) 2.4 g/dL 3.5-5 L ALK PHOS (test code = 5332018748) 34 U/L 34-122 ALTv (test code = 1742-6) 15 U/L 5-50 AST(SGOT) (test code = 8978992143) 43 U/L 13-40 H Lab Interpretation (test code = Abnormal 88058-0) [facility] HospitalABG+COOX+NA+K+GLU+CA2+2019-09-02 07:30:00 Test Item Value Reference Range Interpretation Comments PH (test code = 2) 7.35-7.45 PCO2 (test code = See_Comment [Automat ed message] 3010708620) The system [employer] generated this result transmit tennille reference range : 35 - 45 mmHg. The reference range was not used to interpret this result as normal/abnormal . PO2 (test code = See_Comment H [Automated message] 5687032805) The system [employer] generated this result transmit tennille reference range : 80 - 100 mmHg. The reference range was not used to interpret this result as normal/abnormal . HCO3 (test code = See_Comment L [Automate d message] 9537953581) The system [employer] generated this result transmit tenn[place] reference range : 22 - 26 mEq/L. The reference range was not used to interpret this result as normal/abnormal . BE (test code = See_Comment L [Automated message] 3890419908) The system [employer] generated this result transmit tenn[place] reference range : -3.0 - 3.0 mEq/ L. The reference r christine was not used to interpret this result as normal/abnormal . THB (test code = 9.6 g/dL 13.5-18 L 4126089722) %O2HB (test code = 97.8 % 94-99 8398694466) %COHB ART (test code = 0.3 % 0-1.5 5424883203) %METHB ART (test code = 0.3 % 0.4-1.5 L 4994995066) VOL%O2 ART (test code = 13.5 % 15-23 L 3390702747) NA (test code = 135 mmol/L 135-145 0105520296) K+ (test code = 4.4 mmol/L 3.5-5 6732654769) AC CA IONZ (test code = 5.00 mg/dL 4.5-5.3 2601068384) GLUCOSE (test code = 117 mg/dL 70-110 H 2713700473) Lab Interpretation Abnormal (test code = 28756-0) [facility]PROFILE / [id number] 07:28:00 Test Item Value Reference Range Interpretation Comments WBC (test code = 6690-2) See_Comment H [A utomated message] The system [employer] generated this result transmit tenn[place] reference range : 4.20 - 10.70 10*3/?L. The reference range was not used to interpret this result as normal/abnormal . RBC (test code = 789-8) See_Comment L [Au tomated message] The system [employer] generated this result transmit tennille reference range : 4.26 - 5.52 10* 6/?L. The reference r christine was not used to interpret this result as normal/abnormal . HGB (test code = 718-7) 8.5 g/dL 12.2-16.4 L HCT (test code = 4544-3) 25.7 % 38.4-49.3 L MCH (test code = 785-6) 23.9 pg 26.1-32.7 L MCV (test code = 787-2) 72.4 fL 81.7-95.6 L MCHC (test code = 786-4) 33.1 g/dL 31.2-35 PLT (test code = 777-3) See_Comment [Au tomated message] The system [employer] generated this result transmit tennille reference range : 150 - 328 10*3/?L. The reference range was not used to interpret this result as normal/abnormal . MPV (test code = 11.1 fL 9.8-13 12706-6) RDW-CV (test code = 19.5 % 12.1-15.4 H 788-0) RDW-SD (test code = 50.0 fL 38.5-51.6 06419-1) NRBC x10^3 (test code = <0.01 See_Comment [Au tomated message] 6510991162) The system [employer] generated this result transmit tennille reference range : 10*3/?L. The reference range was not used to interpret this result as normal/abnormal . NRBC/100 WBC (test code See_Comment [Au tomated message] = 0662898559) The system whi ch generated this result transmit tennille reference range : 0.0 - 10.0 /100 WBC s. The reference r christine was not used to interpret this result as normal/abnormal . IPF % (test code = 5581118210) Lab Interpretation (test Abnormal code = 25132-2) [facility] 06[facility]07:00 Test Item Value Reference Range Interpretation Comments POCT GLU (test code = 8336255155) 183 mg/dL 70-110 H Lab Interpretation (test code = Abnormal 19032-5) [facility] L[facility] [id number] 03:06:00 Test Item Value Reference Range Interpretation Comments PH (test code = 2) 7.35-7.45 PCO2 (test code = See_Comment L [Automat ed 7769655287) message] The sy stem which generated this result transmitted reference range : 35 - 45 mmHg. The reference range was not used to interpret this result as normal/abnormal . PO2 (test code = See_Comment H [Automated 7896730303) message] The sy stem which generated this result transmitted reference range : 80 - 100 mmHg. The reference range was not used to interpret this result as normal/abnormal . HCO3 (test code = See_Comment L [Automate d 8881257651) message] The sy stem which generated this result transmitted reference range : 22 - 26 mEq/L. The reference range was not used to interpret this result as normal/abnormal . BE (test code = See_Comment L [Automated 2941998083) message] The sy stem which generated this result transmitted reference range : -3.0 - 3.0 mEq/ L. The reference r christine was not used to interpret this result as normal/abnormal . THB (test code = 10.2 g/dL 13.5-18 L 5483181812) %O2HB (test code = 98.1 % 94-99 9229212872) %COHB ART (test code = 0.3 % 0-1.5 3421538690) %METHB ART (test code = 0.3 % 0.4-1.5 L 7960045146) VOL%O2 ART (test code = 14.4 % 15-23 L 1515319013) NA (test code = 134 mmol/L 135-145 L 0551756824) K+ (test code = 4.9 mmol/L 3.5-5 1330977646) AC CA IONZ (test code = 4.90 mg/dL 4.5-5.3 9633654491) GLUCOSE (test code = 176 mg/dL 70-110 H 6127816350) LACTIC ACID (test code 1.62 mmol/L 0.5-2.2 = 9897653162) Lab Interpretation Abnormal (test code = 73366-1) [facility] GLUCOSE (AUTOMATED)2019-09-02 01:41:00 Test Item Value Reference Range Interpretation Comments POCT GLU (test code = 7754166971) 176 mg/dL 70-110 H Lab Interpretation (test code = Abnormal 15781-7) [facility] GLUCOSE (AUTOMATED)2019-09-01 23:56:00 Test Item Value Reference Range Interpretation Comments POCT GLU (test code = 0683307499) 172 mg/dL 70-110 H Lab Interpretation (test code = Abnormal 85278-7) [facility] METABOLIC PANEL (NA, K, CL, CO2, GLUCOSE, BUN, CREATININE, CA)2019-09-01 23:52:00 Test Item Value Reference Range Interpretation Comments NA (test code = 136 mmol/L 135-145 8504353765) K (test code = 5.1 mmol/L 3.5-5 H 5143072268) CL (test code = 106 mmol/L 98-108 1359561807) CO2 TOTAL (test code = 23 mmol/L 23-31 0171529500) AGAP (test code = 2-16 5040691481) BUN (test code = 34 mg/dL 7-23 H 2808292232) GLUCOSE (test code = 147 mg/dL 70-110 H 6699714544) CREATININE (test code = 1.75 mg/dL 0.6-1.25 H 3535503480) CALCIUM (test code = 8.4 mg/dL 8.6-10.6 L 6373929830) eGFR Calculation mL/min/1.73m2 (Non-) (test code = 3814810192) eGFR Calculation mL/min/1.73m2 () (test code = 2883748729) JUAN LUIS (test code = JUAN LUIS) Association of Glomerular Filtration Rate (GFR) and Staging of Kidney Disease* + --+ --+ ------+| GFR (mL/min/1.73 m2) ?| With Kidney Damage ?| ?Without Kidney Damage+ --------+ --------+ +| ?>90 ?| ?Stage one ?| ? Normal ?+ ---+ ---+ -------+| ?60-89 ?| ?Stage two ?| ? Decreased GFR ? + --+ --+ ------+| ?30-59 ?| ?Stage three ?| ? Stage three ? + --+ --+ ------+| ?15-29 ?| ?Stage four ? | ? Stage four ?+ ---+ ---+ -------+| ?<15 (or dialysis) ? ?| ?Stage five ? | ? Stage five ?+ ---+ ---+ -------+ *Each stage assumes the associated GFR level has been in effect for at least three months. ?Stages 1 to 5, with or without kidney disease, indicate chronic kidney disease. Notes: Determination of stages one and two (with eGFR >59mL/min/1.73 m2) requires estimation of kidney damage for at least three months as defined by structural or functional abnormalities of the kidney, manifested by either:Pathological abnormalities or Markers of kidney damage (including abnormalities in the composition of the blood or urine or abnormalities in imaging tests). Lab Interpretation Abnormal (test code = 46224-8) [facility] 23:49:00 Test Item Value Reference Range Interpretation Comments MAGNESIUM (test code = 6422432499) 2.3 mg/dL 1.7-2.4 Lab Interpretation (test code = Normal 10943-5) [facility] 23:49:00 Test Item Value Reference Range Interpretation Comments PHOSPHORUS (test code = 2811141489) 4.0 mg/dL 2.5-5 Lab Interpretation (test code = Normal 65188-3) [facility]2019-09-01 23:48:00 Test Item Value Reference Range Interpretation Comments POCT GLU (test code = 4340147357) 131 mg/dL 70-110 H Lab Interpretation (test code = Abnormal 95827-3) [facility] 23:48:00 Test Item Value Reference Range Interpretation Comments APTT Patient (test code = See_Comment [ Automated message] 3173-2) The system [employer] generated this result transmitted ref erence range: 26 - 36 Seconds. The re ference range was not u sed to interpret this result as normal/abnor mal. Lab Interpretation (test Normal code = 65645-7) [facility]+NA+K+GLU+CA2+2019-09-01 23:34:00 Test Item Value Reference Range Interpretation Comments PH (test code = 2) 7.35-7.45 PCO2 (test code = See_Comment [Automat ed message] 6392093959) The system [employer] generated this result transmit tennille reference range : 35 - 45 mmHg. The reference range was not used to interpret this result as normal/abnormal . PO2 (test code = See_Comment H [Automated message] 6885004192) The system [employer] generated this result transmit tennille reference range : 80 - 100 mmHg. The reference range was not used to interpret this result as normal/abnormal . HCO3 (test code = See_Comment L [Automate d message] 7539028001) The system [employer] generated this result transmit tennille reference range : 22 - 26 mEq/L. The reference range was not used to interpret this result as normal/abnormal . BE (test code = See_Comment L [Automated message] 5105719609) The system [employer] generated this result transmit tennille reference range : -3.0 - 3.0 mEq/ L. The reference r christine was not used to interpret this result as normal/abnormal . THB (test code = 10.0 g/dL 13.5-18 L 8341437795) %O2HB (test code = 98.0 % 94-99 2835556476) %COHB ART (test code = 0.3 % 0-1.5 6865282212) %METHB ART (test code = 0.2 % 0.4-1.5 L 7219682756) VOL%O2 ART (test code = 14.1 % 15-23 L 2324976861) NA (test code = 134 mmol/L 135-145 L 7031536626) K+ (test code = 5.0 mmol/L 3.5-5 7825236015) AC CA IONZ (test code = 4.90 mg/dL 4.5-5.3 7245990661) GLUCOSE (test code = 151 mg/dL 70-110 H 3208210552) Lab Interpretation Abnormal (test code = 00184-5) [facility] WITH [id number] 21:06:00 Test Item Value Reference Range Interpretation Comments WBC (test code = See_Comment H [Automated 6690-2) message] The system which generated this result transmit tennille reference range : 4.20 - 10.70 10*3/?L. The reference range was not used to interpret this result as normal/abnormal . RBC (test code = See_Comment L [Automated 789-8) message] The system which generated this result transmit tennille reference range : 4.26 - 5.52 10*6/?L. The reference range was not used to interpret this result as normal/abnormal . HGB (test code = 9.2 g/dL 12.2-16.4 L 718-7) HCT (test code = 28.8 % 38.4-49.3 L 4544-3) MCV (test code = 74.2 fL 81.7-95.6 L 787-2) MCH (test code = 23.7 pg 26.1-32.7 L 785-6) MCHC (test code = 31.9 g/dL 31.2-35 786-4) RDW-SD (test code = 51.8 fL 38.5-51.6 H 14231-7) RDW-CV (test code = 20.2 % 12.1-15.4 H 788-0) PLT (test code = See_Comment [Automated 777-3) message] The system which generated this result transmit tennille reference range : 150 - 328 10*3/ ?L. The reference range was not u sed to interpret th is result as normal/abnormal . MPV (test code = 11.7 fL 9.8-13 64949-7) NRBC/100 WBC (test See_Comment [Automat ed code = 2831214735) message] The system which generated this result transmit tennille reference range : 0.0 - 10.0 /100 WBCs. The reference range was not used to interpret this result as normal/abnormal . NRBC x10^3 (test code <0.01 See_Comment [Auto mated = 1676408234) message] The system which generated this result transmit tennille reference range : 10*3/?L. The reference range was not used to interpret this result as normal/abnormal . GRAN MAT (NEUT) % 87.5 % (test code = 770-8) IMM GRAN % (test code 0.80 % = 4374868586) LYMPH % (test code = 4.4 % 736-9) MONO % (test code = 6.6 % 5905-5) EOS % (test code = 0.4 % 713-8) BASO % (test code = 0.3 % 706-2) GRAN MAT x10^3(ANC) 12.12 10*3/uL 1.99-6.95 H (test code = 5939399232) IMM GRAN x10^3 (test 0.11 10*3/uL 0-0.06 H code = 6644746247) LYMPH x10^3 (test code 0.61 10*3/uL 1.09-3.23 L = 731-0) MONO x10^3 (test code 0.92 10*3/uL 0.36-1.02 = 742-7) EOS x10^3 (test code = 0.05 10*3/uL 0.06-0.53 L 711-2) BASO x10^3 (test code 0.04 10*3/uL 0.01-0.09 = 704-7) Lab Interpretation Abnormal (test code = 93977-7) [facility] [id number] 21:06:00 Test Item Value Reference Range Interpretation Comments PH (test code = 2) 7.35-7.45 PCO2 (test code = See_Comment [Automat ed 3474192789) message] The sy stem which generated this result transmitted reference range : 35 - 45 mmHg. The reference range was not used to interpret this result as normal/abnormal . PO2 (test code = See_Comment H [Automated 7955645535) message] The sy stem which generated this result transmitted reference range : 80 - 100 mmHg. The reference range was not used to interpret this result as normal/abnormal . HCO3 (test code = See_Comment [Automate d 9971199032) message] The sy stem which generated this result transmitted reference range : 22 - 26 mEq/L. The reference range was not used to interpret this result as normal/abnormal . BE (test code = See_Comment [Automated 4333419966) message] The sy stem which generated this result transmitted reference range : -3.0 - 3.0 mEq/ L. The reference r christine was not used to interpret this result as normal/abnormal . THB (test code = 9.9 g/dL 13.5-18 L 6602100697) %O2HB (test code = 98.0 % 94-99 8980118020) %COHB ART (test code = 0.3 % 0-1.5 5827189897) %METHB ART (test code = 0.1 % 0.4-1.5 L 7466757848) VOL%O2 ART (test code = 14.0 % 15-23 L 4208089318) NA (test code = 135 mmol/L 135-145 2220775481) K+ (test code = 4.5 mmol/L 3.5-5 1099147552) AC CA IONZ (test code = 4.60 mg/dL 4.5-5.3 2797764437) GLUCOSE (test code = 124 mg/dL 70-110 H 3337103412) LACTIC ACID (test code 0.89 mmol/L 0.5-2.2 = 1904514137) Lab Interpretation Abnormal (test code = 52538-0) [facility] Metabolic Panel (NA, K, CL, CO2, GLUCOSE, BUN, CREATININE, CA)2019-09-01 21:02:00 Test Item Value Reference Range Interpretation Comments NA (test code = 137 mmol/L 135-145 2586097916) K (test code = 4.3 mmol/L 3.5-5 7352143516) CL (test code = 107 mmol/L 98-108 8787060857) CO2 TOTAL (test code = 24 mmol/L 23-31 9938152963) AGAP (test code = 2-16 2109159477) BUN (test code = 31 mg/dL 7-23 H 1558710887) GLUCOSE (test code = 106 mg/dL 70-110 0937209553) CREATININE (test code = 1.68 mg/dL 0.6-1.25 H 7657521473) CALCIUM (test code = 7.0 mg/dL 8.6-10.6 L 1695075756) eGFR Calculation mL/min/1.73m2 (Non-) (test code = 3531907012) eGFR Calculation mL/min/1.73m2 () (test code = 9094115227) JUAN LUIS (test code = JUAN LUIS) Association of Glomerular Filtration Rate (GFR) and Staging of Kidney Disease* + --+ --+ ------+| GFR (mL/min/1.73 m2) ?| With Kidney Damage ?| ?Without Kidney Damage+ --------+ --------+ +| ?>90 ?| ?Stage one ?| ? Normal ?+ ---+ ---+ -------+| ?60-89 ?| ?Stage two ?| ? Decreased GFR ? + --+ --+ ------+| ?30-59 ?| ?Stage three ?| ? Stage three ? + --+ --+ ------+| ?15-29 ?| ?Stage four ? | ? Stage four ?+ ---+ ---+ -------+| ?<15 (or dialysis) ? ?| ?Stage five ? | ? Stage five ?+ ---+ ---+ -------+ *Each stage assumes the associated GFR level has been in effect for at least three months. ?Stages 1 to 5, with or without kidney disease, indicate chronic kidney disease. Notes: Determination of stages one and two (with eGFR >59mL/min/1.73 m2) requires estimation of kidney damage for at least three months as defined by structural or functional abnormalities of the kidney, manifested by either:Pathological abnormalities or Markers of kidney damage (including abnormalities in the composition of the blood or urine or abnormalities in imaging tests). Lab Interpretation Abnormal (test code = 24646-5) [facility] 21:02:00 Test Item Value Reference Range Interpretation Comments MAGNESIUM (test code = 6167224197) 1.9 mg/dL 1.7-2.4 Lab Interpretation (test code = Normal 78834-1) [facility] 21:02:00 Test Item Value Reference Range Interpretation Comments PHOSPHORUS (test code = 9740140417) 3.1 mg/dL 2.5-5 Lab Interpretation (test code = Normal 33824-8) [facility] / [id number] 20:59:00 Test Item Value Reference Range Interpretation Comments PROTIME PATIENT (test See_Comment H [Auto mated message] code = 5964-2) The system ich generated this result transmitted ref erence range: 10.1 - 1 2.6 Seconds. The reference range was not used to int erpret this result as normal/abnormal . INR (test code = 6301-6) Nor mal INR <1.1; Warfarin Therap eutic range 2.0 to 3. 0 or 2.5 to 3.5, dep ending upon the indica tions. Lab Interpretation (test Abnormal code = 70228-7) [facility] 20:59:00 Test Item Value Reference Range Interpretation Comments APTT Patient (test code See_Comment H [Au tomated message] = 3173-2) The system [employer] h generated this result transmitted ref erence range: 26 - 36 Seconds. The reference range was not used to int erpret this result as normal/abnormal . Lab Interpretation (test Abnormal code = 53946-9) [facility] Packed RBC (in units), 2 Units 2019-09-01 20:58:25 Test Item Value Reference Range Interpretation Comments Cross Match Result Compatible (test code = 4409) ISBT Blood Type Code (test code = 571815) Unit Blood Type (test A Pos code = 4410) Unit Number (test [id number] code = 4411) Blood Expiration Date & Time (test code = 078237) Status Information Issued (test code = 4412) Product Red Blood Cells Identification (test code = 4413) Product Code (test E4037W11 Performed at [facility] code = 4414) Laboratory Services - [facility] Blood [address] [place] [id number] Free: [phone] A No. [id number] [facility] 1 View (on admission)2019-09-01 19:53:23 Lines and tubes in expected position Lungs are expanded and clear with mild perihilar congestion. XR CHEST 1 VW HISTORY: s/p open heart surgery COMPARISON: 08/22/2019 FINDINGS: Lines and tubes: The endotracheal tube terminates 4.6 cm from amol.NG tube extends to stomach.Right IJ Montrose-Juhi terminates at proximal right PA.Mediastinal and chest tubes in place. Lungs and pleura: Unremarkable with mildperihilar congestion. No pleuraleffusion or pneumothorax. Mediastinum and heart: Unremarkable Bones;?unremarkable status post medial sternotomy. [facility], Radiant Results Inft User - 09/01/2019 1:54 PM CSTXR CHEST 1 VWHISTORY: s/p open heart surgery COMPARISON: 08/22/2019FINDINGS:Lines and tubes: The endotracheal tube terminates 4.6 cm from amol.NG tube extends to stomach.Right IJ Montrose-Juhi terminates at proximal right PA.Mediastinal and chest tubes in place.Lungs and pleura: Unremarkable with mild perihilar congestion. No pleuraleffusion or pneumothorax.Mediastinum and heart: UnremarkableBones; unre markable status post medial sternotomy.IMPRESSIONLines and tubes in expected positionLungs are expanded and clear with mild perihilar congestion.[facility]+NA+K+GLU+CA2+2019-09-01 19:30:00 Test Item Value Reference Range Interpretation Comments PH (test code = 2) 7.35-7.45 PCO2 (test code = See_Comment [Automat ed message] 2580204713) The system [employer] generated this result transmit tennille reference range : 35 - 45 mmHg. The reference range was not used to interpret this result as normal/abnormal . PO2 (test code = See_Comment H [Automated message] 3375599663) The system [employer] generated this result transmit tennille reference range : 80 - 100 mmHg. The reference range was not used to interpret this result as normal/abnormal . HCO3 (test code = See_Comment [Automate d message] 6622836454) The system [employer] generated this result transmit tennille reference range : 22 - 26 mEq/L. The reference range was not used to interpret this result as normal/abnormal . BE (test code = See_Comment [Automated message] 4201302663) The system [employer] generated this result transmit tennille reference range : -3.0 - 3.0 mEq/ L. The reference r christine was not used to interpret this result as normal/abnormal . THB (test code = 9.9 g/dL 13.5-18 L 3573047849) %O2HB (test code = 98.8 % 94-99 3735660053) %COHB ART (test code = 0.0 % 0-1.5 6767691002) %METHB ART (test code = 0.3 % 0.4-1.5 L 5905943142) VOL%O2 ART (test code = 14.4 % 15-23 L 1270129373) NA (test code = 135 mmol/L 135-145 4623202440) K+ (test code = 4.3 mmol/L 3.5-5 4423174693) AC CA IONZ (test code = 4.40 mg/dL 4.5-5.3 L 8976166201) GLUCOSE (test code = 106 mg/dL 70-110 7545205509) Lab Interpretation Abnormal (test code = 38850-4) [facility] ACUTE CARE [id number] 18:13:00 Test Item Value Reference Range Interpretation Comments PH (test code = 2) 7.35-7.45 PCO2 (test code = See_Comment H [Automat ed message] 8581384201) The system [employer] generated this result transmit tennille reference range : 35 - 45 mmHg. The reference range was not used to interpret this result as normal/abnormal . PO2 (test code = See_Comment H [Automated message] 4167004155) The system [employer] generated this result transmit tennille reference range : 80 - 100 mmHg. The reference range was not used to interpret this result as normal/abnormal . BE (test code = See_Comment [Automated message] 6597882380) The system [employer] generated this result transmit tennille reference range : -3.0 - 3.0 mEq/ L. The reference r christine was not used to interpret this result as normal/abnormal . HCO3 (test code = See_Comment H [Automate d message] 0579690644) The system [employer] generated this result transmit tennille reference range : 22 - 26 mEq/L. The reference range was not used to interpret this result as normal/abnormal . %O2HB (test code = 100.0 % 95-98 H 0575622368) NA (test code = 137 mmol/L 135-145 0030865433) K+ (test code = 4.3 mmol/L 3.5-5 9732736767) AC CA IONZ (test code = 4.40 mg/dL 4.5-5.3 L 1880163225) GLUCOSE (test code = 80 mg/dL 70-110 0069083221) AC Hematocrit (test See_Comment LL [Automa tennille message] code = 0916388537) The syste m which generated this result transmit tennille reference range : 40 - 54 VOL %. The reference range was not used to interpret this result as normal/abnormal . THB (test code = 8.2 g/dL 13.5-18 LL 7029323472) AC TC02 (test code = 28 mmol/L See_Comment H [Autom ated message] 8074829685) The system [employer] generated this result transmit tennille reference range : 23-27 mmol/L. T he reference range was not used to interpret this result as normal/abnormal . Lab Interpretation Abnormal (test code = 16332-5) [facility] HIGH [id number] 17:58:00 Test Item Value Reference Range Interpretation Comments ACTHR (test code = See_Comment [Automat ed message] 3232415759) The system [employer] generated this result transmitted ref erence range: 96 - 152 Seconds. The re ference range was not u sed to interpret this result as normal/abnor mal. Lab Interpretation (test Normal code = 62783-4) [facility] 17:39:00 Test Item Value Reference Range Interpretation Comments APTT Patient (test code >150 See_Comment HH [Au tomated message] = 3173-2) The system [employer] generated this result transmitted ref erence range: 26 - 36 Seconds. The reference range was not used to int erpret this result as normal/abnormal . Lab Interpretation (test Abnormal code = 03362-6) [facility]EN2020-[facility]-18 17:32:00 Test Item Value Reference Range Interpretation Comments Fibrinogen (test code = 7921802005) 350 mg/dL 167-453 Lab Interpretation (test code = Normal 87798-1) [facility]PROT[facility] / [id number] 17:32:00 Test Item Value Reference Range Interpretation Comments PROTIME PATIENT (test See_Comment H [Auto mated message] code = 5964-2) The system [facility] generated this result transmitted ref erence range: 10.1 - 1 2.6 Seconds. The reference range was not used to int erpret this result as normal/abnormal . INR (test code = 6301-6) Nor mal INR <1.1; Warfarin Therap eutic range 2.0 to 3. 0 or 2.5 to 3.5, dep ending upon the indica tions. Lab Interpretation (test Abnormal code = 06097-1) [facility] [id number] 17:17:00 Test Item Value Reference Range Interpretation Comments PH (test code = 2) 7.35-7.45 L PCO2 (test code = See_Comment H [Automat ed message] 7395969007) The system [facility] ATEME generated this result transmit tennille reference range : 35 - 45 mmHg. The reference range was not used to interpret this result as normal/abnormal . PO2 (test code = See_Comment H [Automated message] 0125006373) The system [employer] generated this result transmit tennille reference range : 80 - 100 mmHg. The reference range was not used to interpret this result as normal/abnormal . BE (test code = See_Comment [Automated message] 6239390371) The system [facility] [employer] generated this result transmit tennille reference range : -3.0 - 3.0 mEq/ L. The reference r christine was not used to interpret this result as normal/abnormal . HCO3 (test code = See_Comment H [Automate d message] 6660528838) The system [facility] [employer] generated this result transmit tennille reference range : 22 - 26 mEq/L. The reference range was not used to interpret this result as normal/abnormal . %O2HB (test code = 100.0 % 95-98 H 2564838693) NA (test code = 140 mmol/L 135-145 8501168411) K+ (test code = 4.2 mmol/L 3.5-5 5921299990) AC CA IONZ (test code = 4.20 mg/dL 4.5-5.3 L 5187710466) GLUCOSE (test code = 92 mg/dL 70-110 6484157098) AC Hematocrit (test See_Comment LL [Automa tennille message] code = 3491548544) The syste m which generated this result transmit tennille reference range : 40 - 54 VOL %. The reference range was not used to interpret this result as normal/abnormal . THB (test code = 7.5 g/dL 13.5-18 LL 8560149546) AC TC02 (test code = 29 mmol/L See_Comment H [Autom ated message] 5813959815) The system [employer] generated this result transmit tennille reference range : 23-27 mmol/L. T he reference range was not used to interpret this result as normal/abnormal . Lab Interpretation Abnormal (test code = 22812-3) [facility]2020-[facility] 17:16:00 Test Item Value Reference Range Interpretation Comments HCT (test code = 4544-3) 25.6 % 38.4-49.3 L Lab Interpretation (test code = Abnormal 18270-0) [facility]HEMOGLOBIN2020-02-18 17:16:00 Test Item Value Reference Range Interpretation Comments HGB (test code = 718-7) 8.0 g/dL 12.2-16.4 L Lab Interpretation (test code = Abnormal 55070-0) [facility] HospitalPLATELET [id number] 17:16:00 Test Item Value Reference Range Interpretation Comments PLT (test code = 777-3) See_Comment [Au tomated message] The system [employer] generated this result transmitted ref erence range: 150 - 32 8 10*3/?L. The re ference range was not u sed to interpret this result as normal/abnor mal. Lab Interpretation (test Normal code = 58548-0) [facility] [id number] 17:04:00 Test Item Value Reference Range Interpretation Comments ACTHR (test code = See_Comment H [Automat ed message] 0538709994) The system [employer] generated this result transmitted ref erence range: 96 - 152 Seconds. The reference range was not used to int erpret this result as normal/abnormal . Lab Interpretation (test Abnormal code = 78239-3) [facility] ACUTE CARE [id number] 16:52:00 Test Item Value Reference Range Interpretation Comments PH (test code = 2) 7.35-7.45 PCO2 (test code = See_Comment [Automat ed message] [id number]) The system [employer] generated this result transmit tennille reference range : 35 - 45 mmHg. The reference range was not used to interpret this result as normal/abnormal . PO2 (test code = See_Comment H [Automated message] 7634233509) The system [employer] generated this result transmit tennille reference range : 80 - 100 mmHg. The reference range was not used to interpret this result as normal/abnormal . BE (test code = See_Comment [Automated message] 0482498597) The system [employer] generated this result transmit tennille reference range : -3.0 - 3.0 mEq/ L. The reference r christine was not used to interpret this result as normal/abnormal . HCO3 (test code = See_Comment H [Automate d message] 9718167184) The system [employer] generated this result transmit tennille reference range : 22 - 26 mEq/L. The reference range was not used to interpret this result as normal/abnormal . %O2HB (test code = 100.0 % 95-98 H 1939723929) NA (test code = 138 mmol/L 135-145 4918556460) K+ (test code = 4.7 mmol/L 3.5-5 7004892115) AC CA IONZ (test code = 4.10 mg/dL 4.5-5.3 L 0197804864) GLUCOSE (test code = 143 mg/dL 70-110 H 7415194491) AC Hematocrit (test See_Comment LL [Automa tennille message] code = 7088948358) The syste m which generated this result transmit tennille reference range : 40 - 54 VOL %. The reference range was not used to interpret this result as normal/abnormal . THB (test code = 8.2 g/dL 13.5-18 LL 9341336187) AC TC02 (test code = 29 mmol/L See_Comment H [Autom ated message] 7297588975) The system [employer] generated this result transmit tennille reference range : 23-27 mmol/L. T he reference range was not used to interpret this result as normal/abnormal . Lab Interpretation Abnormal (test code = 69408-0) [facility] ACT HIGH [id number] 16:41:00 Test Item Value Reference Range Interpretation Comments ACTHR (test code = See_Comment H [Automat ed message] 9623829447) The system [employer] generated this result transmitted ref erence range: 96 - 152 Seconds. The reference range was not used to int erpret this result as normal/abnormal . Lab Interpretation (test Abnormal code = 46553-0) [facility] ACUTE CARE [id number] 16:20:00 Test Item Value Reference Range Interpretation Comments PH (test code = 2) 7.35-7.45 PCO2 (test code = See_Comment [Automat ed message] 3390118150) The system [employer] generated this result transmit tennille reference range : 35 - 45 mmHg. The reference range was not used to interpret this result as normal/abnormal . PO2 (test code = See_Comment H [Automated message] 0440925974) The system [employer] generated this result transmit tennille reference range : 80 - 100 mmHg. The reference range was not used to interpret this result as normal/abnormal . BE (test code = See_Comment [Automated message] 9188679335) The system [employer] generated this result transmit tennille reference range : -3.0 - 3.0 mEq/ L. The reference r christine was not used to interpret this result as normal/abnormal . HCO3 (test code = See_Comment H [Automate d message] 0189545657) The system [employer] generated this result transmit tennille reference range : 22 - 26 mEq/L. The reference range was not used to interpret this result as normal/abnormal . %O2HB (test code = 100.0 % 95-98 H 6427025961) NA (test code = 135 mmol/L 135-145 0099527786) K+ (test code = 4.9 mmol/L 3.5-5 6635588704) AC CA IONZ (test code = 3.80 mg/dL 4.5-5.3 L 2237874929) GLUCOSE (test code = 200 mg/dL 70-110 H 5871387667) AC Hematocrit (test See_Comment L [Automa tennille message] code = 0970573182) The syste m which generated this result transmit tennille reference range : 40 - 54 VOL %. The reference range was not used to interpret this result as normal/abnormal . THB (test code = 8.8 g/dL 13.5-18 L 6766388897) AC TC02 (test code = 29 mmol/L See_Comment H [Autom ated message] 1671721269) The system [employer] generated this result transmit tennille reference range : 23-27 mmol/L. T he reference range was not used to interpret this result as normal/abnormal . Lab Interpretation Abnormal (test code = 70247-2) [facility] ACT HIGH [id number] 16:14:00 Test Item Value Reference Range Interpretation Comments ACTHR (test code = See_Comment H [Automat ed message] 4312910409) The system [employer] generated this result transmitted ref erence range: 96 - 152 Seconds. The reference range was not used to int erpret this result as normal/abnormal . Lab Interpretation (test Abnormal code = 99156-7) [facility] ACUTE CARE [id number] 15:55:00 Test Item Value Reference Range Interpretation Comments PH (test code = 2) 7.35-7.45 L PCO2 (test code = See_Comment H [Automat ed message] 6493035496) The system [employer] generated this result transmit tennille reference range : 35 - 45 mmHg. The reference range was not used to interpret this result as normal/abnormal . PO2 (test code = See_Comment H [Automated message] 8490788754) The system [employer] generated this result transmit tennille reference range : 80 - 100 mmHg. The reference range was not used to interpret this result as normal/abnormal . BE (test code = See_Comment [Automated message] 6289273969) The system [employer] generated this result transmit tennille reference range : -3.0 - 3.0 mEq/ L. The reference r christine was not used to interpret this result as normal/abnormal . HCO3 (test code = See_Comment H [Automate d message] 5095053367) The system [employer] generated this result transmit tennille reference range : 22 - 26 mEq/L. The reference range was not used to interpret this result as normal/abnormal . %O2HB (test code = 100.0 % 95-98 H 1335327525) NA (test code = 135 mmol/L 135-145 7977065190) K+ (test code = 5.7 mmol/L 3.5-5 H 4938193663) AC CA IONZ (test code = 3.50 mg/dL 4.5-5.3 L 9827126161) GLUCOSE (test code = 171 mg/dL 70-110 H 3958895448) AC Hematocrit (test See_Comment L [Automa tennille message] code = 9240379080) The syste m which generated this result transmit tennille reference range : 40 - 54 VOL %. The reference range was not used to interpret this result as normal/abnormal . THB (test code = 8.8 g/dL 13.5-18 L 6792486558) AC TC02 (test code = 30 mmol/L See_Comment H [Autom ated message] 9870544950) The system [employer] generated this result transmit tennille reference range : 23-27 mmol/L. T he reference range was not used to interpret this result as normal/abnormal . Lab Interpretation Abnormal (test code = 33240-8) [facility] ACT HIGH [id number] 15:27:00 Test Item Value Reference Range Interpretation Comments ACTHR (test code = See_Comment H [Automat ed message] 4253723229) The system [employer] generated this result transmitted ref erence range: 96 - 152 Seconds. The reference range was not used to int erpret this result as normal/abnormal . Lab Interpretation (test Abnormal code = 17740-0) [facility] ACUTE CARE [id number] 15:20:00 Test Item Value Reference Range Interpretation Comments PH (test code = 2) 7.35-7.45 PCO2 (test code = See_Comment H [Automat ed message] 2590626260) The system [employer] generated this result transmit tennille reference range : 35 - 45 mmHg. The reference range was not used to interpret this result as normal/abnormal . PO2 (test code = See_Comment H [Automated message] 0946539628) The system [employer] generated this result transmit tennille reference range : 80 - 100 mmHg. The reference range was not used to interpret this result as normal/abnormal . BE (test code = See_Comment H [Automated message] 4005754857) The system [employer] generated this result transmit tennille reference range : -3.0 - 3.0 mEq/ L. The reference r christine was not used to interpret this result as normal/abnormal . HCO3 (test code = See_Comment H [Automate d message] 2226216759) The system [employer] generated this result transmit tennille reference range : 22 - 26 mEq/L. The reference range was not used to interpret this result as normal/abnormal . %O2HB (test code = 100.0 % 95-98 H 9609541355) NA (test code = 135 mmol/L 135-145 0899399326) K+ (test code = 4.5 mmol/L 3.5-5 7229678542) AC CA IONZ (test code = 4.80 mg/dL 4.5-5.3 5326262818) GLUCOSE (test code = 118 mg/dL 70-110 H 4161860040) AC Hematocrit (test See_Comment LL [Automa tennille message] code = 5423901189) The syste m which generated this result transmit tennille reference range : 40 - 54 VOL %. The reference range was not used to interpret this result as normal/abnormal . THB (test code = 7.5 g/dL 13.5-18 LL 2951230209) AC TC02 (test code = 32 mmol/L See_Comment H [Autom ated message] 3554288365) The system [employer] generated this result transmit tennille reference range : 23-27 mmol/L. T he reference range was not used to interpret this result as normal/abnormal . Lab Interpretation Abnormal (test code = 77976-1) [facility] [employer] HIGH [id number] 15:16:00 Test Item Value Reference Range Interpretation Comments ACTHR (test code = See_Comment H [Automat ed message] 4963175465) The system [employer] generated this result transmitted ref erence range: 96 - 152 Seconds. The reference range was not used to int erpret this result as normal/abnormal . Lab Interpretation (test Abnormal code = 61787-5) [facility] [employer] HIGH [id number] 15:09:00 Test Item Value Reference Range Interpretation Comments ACTHR (test code = See_Comment H [Automat ed message] 5607370628) The system [employer] generated this result transmitted ref erence range: 96 - 152 Seconds. The reference range was not used to int erpret this result as normal/abnormal . Lab Interpretation (test Abnormal code = 76412-7) [facility] (in units), 2 Units 2019-09-01 14:20:50 Test Item Value Reference Range Interpretation Comments Cross Match Result Compatible (test code = 4409) ISBT Blood Type Code (test code = 035971) Unit Blood Type (test A Pos code = 4410) Unit Number (test [id number] code = 4411) Blood Expiration Date & Time (test code = 644089) Status Information Issued (test code = 4412) Product Red Blood Cells Identification (test code = 4413) Product Code (test [id number] Performed at [facility] code = 4414) Laboratory Services - [facility] [address] [place] [phone] Free: [phone] A No. [id number] [facility] ACUTE CARE [id number] 14:13:00 Test Item Value Reference Range Interpretation Comments PH (test code = 2) 7.35-7.45 PCO2 (test code = See_Comment [Automat ed message] 0103944927) The system [employer] generated this result transmit tennille reference range : 35 - 45 mmHg. The reference range was not used to interpret this result as normal/abnormal . PO2 (test code = See_Comment H [Automated message] 3674278569) The system [employer] generated this result transmit tennille reference range : 80 - 100 mmHg. The reference range was not used to interpret this result as normal/abnormal . BE (test code = See_Comment H [Automated message] 0528183336) The system [employer] generated this result transmit tennille reference range : -3.0 - 3.0 mEq/ L. The reference r christine was not used to interpret this result as normal/abnormal . HCO3 (test code = See_Comment H [Automate d message] 5818223108) The system [employer] generated this result transmit tennille reference range : 22 - 26 mEq/L. The reference range was not used to interpret this result as normal/abnormal . %O2HB (test code = 100.0 % 95-98 H 2989769718) NA (test code = 135 mmol/L 135-145 5521772573) K+ (test code = 4.2 mmol/L 3.5-5 5675398023) AC CA IONZ (test code = 4.80 mg/dL 4.5-5.3 2829734029) GLUCOSE (test code = 112 mg/dL 70-110 H 9068118537) AC Hematocrit (test See_Comment LL [Automa tennille message] code = 7207523554) The syste [employer] which generated this result transmit tennille reference range : 40 - 54 VOL %. The reference range was not used to interpret this result as normal/abnormal . THB (test code = 6.5 g/dL 13.5-18 LL 4921765048) AC TC02 (test code = 32 mmol/L See_Comment H [Autom ated message] 3741953737) The system [employer] generated this result transmit tennille reference range : 23-27 mmol/L. T he reference range was not used to interpret this result as normal/abnormal . Lab Interpretation Abnormal (test code = 97706-8) [facility] [id number] 13:57:00 Test Item Value Reference Range Interpretation Comments ACTHR (test code = See_Comment L [Automat ed message] 1814580203) The system [employer] generated this result transmitted ref erence range: 96 - 152 Seconds. The reference range was not used to int erpret this result as normal/abnormal . Lab Interpretation (test Abnormal code = 93218-4) [facility] RBC (in units), 4 Units 2019-09-01 12:50:33 Test Item Value Reference Range Interpretation Comments Cross Match Result Compatible (test code = 4409) ISBT Blood Type Code (test code = 656131) Unit Blood Type (test A Pos code = 4410) Unit Number (test [id number] code = 4411) Blood Expiration Date & Time (test code = 219565) Status Information Issued (test code = 4412) Product Red Blood Cells Identification (test code = 4413) Product Code (test [id number] Performed at [facility] code = 4414) Laboratory Services - [facility] Blood [address] [place] [phone] Free: [phone] A No. [id number] [facility] GLUCOSE (AUTOMATED)2019-09-01 11:29:00 Test Item Value Reference Range Interpretation Comments POCT GLU (test code = 9515241285) 126 mg/dL 70-110 H Lab Interpretation (test code = Abnormal 09241-6) [facility] GLUCOSE (AUTOMATED)2019-09-01 09:37:00 Test Item Value Reference Range Interpretation Comments POCT GLU (test code = 1278898038) 100 mg/dL 70-110 Lab Interpretation (test code = Normal 29832-1) [facility] GLUCOSE (AUTOMATED)2019-09-01 06:00:00 Test Item Value Reference Range Interpretation Comments POCT GLU (test code = 8422674063) 90 mg/dL 70-110 Lab Interpretation (test code = Normal 53285-5) [facility] GLUCOSE (AUTOMATED)2019-09-01 02:26:00 Test Item Value Reference Range Interpretation Comments POCT GLU (test code = 7080570428) 53 mg/dL 70-110 L Lab Interpretation (test code = Abnormal 87942-6) [facility] GLUCOSE (AUTOMATED)2019-08-31 22:18:00 Test Item Value Reference Range Interpretation Comments POCT GLU (test code = 4665408121) 151 mg/dL 70-110 H Lab Interpretation (test code = Abnormal 85944-7) [facility] - Type and Screen expires at midnight on the 3rd day after it was drawn. A current Type and Screen is required when RBCs are requested. For all other blood products, a Type and Screen performed during the current hospitalization i...2019-08-31 20:48:31 Test Item Value Reference Range Interpretation Comments ABO & RH (test code A Positive Performe d at [facility] = 20) Laboratory Serv [facility] [employer] [address] [place], [place] [address]Toll Free: [phone] 266CLIA No. [id number] IAT (test code = Negative Performed a t [facility] 1185) Laboratory Serv [employer] [address] [place], [place] [address]Toll Free: [phone] 266CLIA No. [id number] [facility] GLUCOSE (AUTOMATED)2019-08-31 18:07:00 Test Item Value Reference Range Interpretation Comments POCT GLU (test code = 1332641888) 76 mg/dL 70-110 Lab Interpretation (test code = Normal 01560-5) [facility] [id number] 16:26:00 Test Item Value Reference Range Interpretation Comments Case Report (test code Surgical Pathology ? ? = [id number]) ?Case: [id number] ? Authorizing Provider: ?Marlo Osman MD ? ? ? Collected: ? 08/26/2019 0744 ?Ordering Location: ? ? [facility] ? ? ? Received: ?08/26/2019 0923 ? Center [facility] ? Pathologist: ? Ewa Cabrera MD ? Specimens: ? A) - STOMACH, pyloric mass ? B) - ESOPHAGUS, BIOPSY @ 40 CM ? C) - ESOPHAGUS, BOIPSY @ 39 CM ? D) - ESOPHAGUS, BIOPSY @ 38 CM ? E) - ESOPHAGUS, BIOPSY @ 37 CM ? Final Diagnosis (test f7zebHQwPWOrw8laJCXneQ code = 1599531871) FuZzEwMzNcZnRuYmpcdWMx HFagfcJxHSrfa8OfA8UyIr AwMFxhbnNpXGRlZmxhbmcx YKRtPFV4qbXqOXYoPSbtEP IkPWczIn8icPBdvMkuGsCu RSWbz1aavfQThjczqOo3y7 vmACMzUuD4oVSkAAwuA2dq muBitFJiPKYxSYt2oZ11KX FryF1noXQaMTfcpxJzLoB6 XFrtYKMsPmS7YORlqLApGB MhV3alLFOyBUftTXWxAEya mZZrWOV2fGscz0K0bYMclA OmyEnqBaKkZdScDCJBr6Wj KMx7xUmjD4IgCPMrJwW1hB QgUGFyYWdyYXBoIEZvbnQ7 uT19YYnjquM1wRZgs1Cuk3 2tp171fF2bkMKvKMS3IYYi DOOalWFvCDMxQMI5KUSsaL AgX2gmUMmxDD3dgrtsXTG1 MFxtYXJndDcyMFxtYXJnYj YeySDyJFGwvNwcODmma611 VZU3NdMkKT5oP9Axo1K1uE 9maXRcZGVmdGFiNzIwXGZv hc9skZHjWLoth2YfSNI2jb T0cNVaxWJrKQHsGK86Brys x0IlJojrOOJ2EDIfyqIjq1 Lzv7rrQtMdjrIzZ3nxE8Mi ZHJoZWFkXHBnYnJkcmZvb3 Nbb6WleQCguLy0r7xfTHBg CHSftNttz7ciYUT5BYCqS8 Y5zFVag9skWCrzVKEfbYM1 czOqJZEabMBwI9UisR0yCX feLT6yyiq6r8oyOfYoDY3g eipsj9elNKcxKSOfNVE4Rk DhCOWgo0XcejmhMoGjo9Wr gUHnKEbgH40ap883SFPuzk SnW0yngMEumxjceBRrwlhm XYdorhD2MIMkYAXsMDphJH YxXGZzMjBcbGFuZzEwMzNc aGljaFxmMVxkYmNoXGYxXG ekM4dmSsVmYcUoTMwqZFTi EN4kE6HONQGIHJtmHPwDY8 WRFgMUVLDXPXTNQ2mMXMBC LG0SAOgtxJFzERZcXUNrCS SNCCRIFtxDSDPRZW6ZBHGw L6jGYlTvPHFMMg2PDVxdD8 jIJXFNS9LYJUMLJIrBYAlQ MSRTUMAPG7AKORHFLOhoCR ZuYQGbJXSfUO1TFshOSrYK TlZPTFZFRCBCWSBBREVOT0 9TYNvyGOVlTYGsJMJgVS8G LapJGwXLN4DtXM3UM0sHXK QgQlkgSElHSCBHUkFERSBE WVNQTEFTSUFccGFyICBccG RhEIDtQLHJG9MZTDjSEcjd PMRjYAChV57hUPUMF4UPWQ ykvSPcSJChJAJsFOSON4rV FV2ZIdVJOTWXH6PgL9eXMF HXWkTUH1IYZhYJJW2WUPOK YIYXYJDlDGQBCuBUM7ALTs IlZ4xOFAVVAKQRVEIUZGQO K9OXUSzSX2kkKUZdZZGzJU CmHT3TZMKGD8QMPOTNPACG REVOVElGSUVEXHBhclxwYX ZtLj1oMLLKMRwVN9ZFLHOR VCAzOSBDTSwgQklPUFNZOl xwYXJccGFyZFxwbGFpblxm RWlhtvE6HWQsSDmdCARhVW ZzMjBcbGFuZzEwMzNcaGlj aFxmMVxkYmNoXGYxXGxvY2 wyEyYtFwWcHFQdCDXnJR9l R57DNM3VGOIbYQPQX3ZTKG mCYBqhXK2OVNJYRB3YQPMK SBBCOFvUU5gJZIJUX40TSO GSIB6HDZuXAVmbRkAJQqII QtMQP72UOKXUAYOqdOUiTQ FsXHBsYWluXGYwXGZzMjRc mUjfxI2qItTzRnJaUJedFG 2gSJFkH7yapQQnIKPeXVDk P1tuMmGjgS0ydFjhXCqjxi IwICAgICAgLSBOTyBEWVNQ TEFTSUEgSURFTlRJRklFRF ynFAHvbSQwWJSeGCFXH6EN LGrNXvqhOUFyPddmM92bOJ RIL2HEPGnwpFBbKWFsdoTm cFxrpN3rPeObOcQeKOkrzH FpblxmMVxmczIwXGxhbmcx YCPzMEirV3vwThHxNORbnM zkQSxiy0MbHRQsNVWgZoNj ICAgICAtIENPTFVNTkFSIE 2NF25BXDMQKPTUMLlVQRTL VElOQUwgTUVUQVBMQVNJQS afL08FV5jNZUTWEHYCHMWV IEJBUlJFVFMgRVNPUEhBR1 DAWNZuzbFhNYJuEA6rPy8j BGrJKZpQE4fJPZcLFI7TDF ZJRURccGFyXHBhciBFLiAg BXDAJDdFE5DDOANTSJFmWr BDTSwgQklPUFNZOlxwYXIg XWKkGWAtHTHLGPBQL8DTTJ 2KC42UFYTCOTNMOPZDNbxA QDLTU31GSRNUBJOTJ4hcJR EdQUNvLMXlHY9RSVXYV0BL QVNJQSBJREVOVElGSUVEXH RbhvymFUEbuFjogS8zWcIy ElImYlynHA8fDEEjW4unfY JyXUOcVNCdU1omGjBtjN3d aFxmMVxjZjJcZnMyMiBNdW KbXAHjfVNPDQdwnDFvyU5k HC5OQrNkDSJxDKAjCgMzPF TdNIS7BsAbLD7ybOfawP4t CxBtWuXcNBzeDZ5aPJLgS9 wonNXlRDFyLZWjV5jiRpGv oA3ffHluDBigzrOlFLElim qvOAS4g9aeaKIqMQZqsAIt BmHpPWCrZKJuu1spAHLkcI FuZzEwMzNcZnRuYmpcdWMx LAQgTpYdq6ppl338fOItn0 nfOHYfFcH9uYEjQDLpwFsz rne5aNtuGxXdUPYjy0vgva BcZmNoYXJzZXQwIEFyaWFs V882QNXxVEmre5guv5NySK ClsWUnb7O1MEWGTBcuSqRf Z615o5tsi9xqgwHnrMD7XI IuGQF3BKtzjxYxinX9ORei oTGtCeY5QKgujsZzXLtbus LftfMzJny7RLGeU251VCK5 eEfoq5pwXIZ8FQIjYKOxUt xpFp9bjSIcG846QIRpMCFA WNFiwUd5PBRwfmWtntCxjA JLz385U892x8apHMFeocBe iVmHflitc8zyI190ZKStjU VydzEyMjQwXHBhcGVyaDE1 ARVgBT1fkewwAZytUIikRS KiqgG7PMFtjOMnU5SxTJXd JU7tvwybXDQ6IGgsFJCzIX V1XdZcMZArh8Vtvjd4QkIx dg4xpp29JLD4w8NmlWkzKX J7EEO1UyVmMj8feBLbQTGd ZA2zHgTmnIHeDNMnzr47iV ovEIxjllWjoZ7rZrFgRNLk pICxYPOuVI8eaXRlLOLahN 5ucmxjXHBnYnJkcmhlYWRc aDkbqrSfLn8biXqqTYQ5KZ yuR4nvnY8eEpP5JZehC0dt zB7nPLv9DZpozQX5OLJolQ 6cQE6llkzlu9oyRXcyAFbf NHRbgzE5ueT0SNLrwMDtQ7 FhiX5eJPCgGQ1sbwwne1ng AUB3SGhqNPQmLHU9ReUwQI Adl1Kfnbk5MkGzz2WpnTCg NBvmV93ps229MTLecbPkI7 xwbGFpblxwbGFpblxmMFxm sjA3GYHpFEBzDQzzBTVbRT ZzMjBcbGFuZzEwMzNcaGlj aFxmMVxkYmNoXGYxXGxvY2 bvLhJmO4QoVAFsAnYftFWz RWwzlHT1OXYwKAThj10mwS z7IIDfmppfg2SqIEKywUZt xDLaeJ7ffkGhr4pxACPkOC NnSBYuT3CuGES1vICzJWJf bLTrcCY0QF6qwmBgEP3yRP UgYnkgcmVzaWRlbnRzLCBm MZots1mqOD4eCDSbdPcigM 5igHK7TZRua0qfwCYozJWt b6xci0DtabFrZBuiHAOcJP ghUVTyAULzKR6fSHEcuRLr bbTql9K6QopyiNZfjsgqSa nvznV9EYfxyykkOYCeJZrb I1nkDsQuPKRkaObmBdcuo3 NoXGYyXGZzMjhccGFyfX0= Final Diagnosis Comment b9ylrBYsMESwoYLqWbYpBW (test code = HfYLVjs1qsKSPneUZtIsUc [id number]) MzNcZnRuYmpcdWMxXGRlZm Cfs7yps204pAKud9cdWQGp XrC4gPSfUKLrmZWoV210VE KvUQdce2bra2IbGMKqqSMn p9P0FAQKyhjliWo1cHgrJ4 9bg7C3JztxW0qsMPKkLYLl B4JeRJ8yWAAvHrs9RES7CJ A4BFFlVPDfF9KhYS0eWXEh oWVfKDh5t8aurNtrTDJiFD J2v2guAFdlpqNjAS1spe1d iUr2a5nkvxJpVTBbUPEzpE HFBQPwL3QmbLqwNh4fmPl8 qSdfSjftEHH9Azk3DL9xig 86cuz1mYwzLODmkucgGkG7 LIxgHUTakdpmURn7KJdmMC VhcMBhVKTeiLNqF4UvWJtv HH6ppxr9OoXeSG5sanypRG blPVUzIBS8RkDgHQBhh0Bt ydcdBsLnky4wtm75SBY4v0 PqfYiqLMA3IMR7QgYpHw1v vEFgFPAwDP7pKxFngWGrBK Xfjc73uFoeOCpxyxYiqJ7s DgNgSKUivMPoDQIjBL0waM DrVZJpfE7zrtzkUIRxYpXj bxvhLXAydApbqsKcAs0hgT gbYIJ0MIpsM7gwlJ4rEuW7 NPixF5fmbV8xKHw9TEipoO Z3GQYsgS0vWE9rvsgiu0af CAY4SHcoORHodbE7efQrCJ BhqMElL7RagQ29JzZsrJOl N9YbvG1rPOkzWKCtowt9Ep AhEu9cfSSyoFI7EYuhCfth YWdlXHBnbmNvbnRccGduZG VjXHBsYWluXHBsYWluXGYw AZRxWdHmmKjiiUaxeH2qCn OrFjQnCNfgCO4oKDGsY6wg fCWePJKdGPLvO9ijUzTpkZ 9jaFxmMVxmczIwIERyLiBR eDJuzJXtPGHcgwtlt0FtMQ ZsIOWatIjlGZJqf7Vgs6Gh O1rhMR6vVFJlB5JxpBPxhI DciQhyuhrxWM4ap6TaRfuf aVC0PRBwbyAuD78nG9Kuqv R7dBUsGHRgMFUncFAplv6n aXMuICBccGFyXHBhcn0= Clinical Information 1. R/O CARCINOMA2 - 5. (test code = ? R/O BARRETTS [id number]) Gross Description (test g5wsuFXxAHDwlFKzWhOmJW code = [id number]) YvTYQfr3ooJTScfSTeNqMt MzNcZnRuYmpcdWMxXGRlZm Lmq2vjx154zCTmn8cgOZTy EhD7bGAtLIZhpJXyT815ND XuZAllq4hrq0PxOSPquNVu r8G8OLJQtwpqwKm4c0fcSe InMxP3hMBsIOuqQ9mcvvFe uBRjRWOgI4SzquCBMLSfJa i0gEtyP87ji8U1MvfbE2rp ZWQwXGdyZWVuMFxibHVlMC L6OUNvXAY0NSisduOdecD7 NGqxxKCsGlK3QZp6s1fpoJ liFXSzOFJ6p0mcVQgxzyQz GV4dmz5jiCj3b0owlpEcMH XpYMIpiPDSXQBpO4HouMgv Va2xtVg2iDivWgsaUBR9Al x0HI4old72lgd7qRzbTUJr teabIzJ3GTgjYOTlalczSY h2XOqnKPHqxOSiXTGmnHJu Z3BvEBigOA9dadm4FvAmTR 4klbgaALuvVBDqLQG7SkCi IFLof3WlvharKePfjy0jrq 31TLA9u1UjsEepUUQ1NDD8 HjScDj3zzRZjWIFaKD4uEy TkySLdHIUjon25kHxpPDkp qzPjbF7xBpXhQBHylBGeSE ClHF4bqFNzLXCqgY4teyww XHBnYnJkcmhlYWRccGdicm PgOz6gfZzaXJT9SOmaU7wy bY7fSqX8ULhcI4bhqB2tHM m7SYpzoIN2FANjeN9vQQ0y qnork7klYKI7WHjmWONfmi D0lvCuIXMpqRLmQ0XdnC18 KtIaiBWlZ7XcgP3vUFxwAN Cnrhm2BsDhOx3pfAYdsJR0 MFxzYmtwYWdlXHBnbmNvbn RccGduZGVjXHBsYWluXHBs KFrlYLRmLAMaEcHgq4JiIV Vlp7fpGyAnz6onbZe4BKin bFxwbGFpblxmMFxmczIwXH CwLIxvYJRqEXUvXcGnN4Ku Y9rnBO2tNDIoghVlYTBnbO SoWHQcmiLql6PhJBtvxjZg OBGgfYzkKPP1kYExGQDwCE DfWOMoLM59ZVAhYDsdNYOg YJKvAmTnwMyzOAgeJTt5Pe xwbGFpblxmMVxmczIwIHMg bmFtZSwgVUggbnVtYmVyIF xwbGFpblxmMVxmczIwXHU4 DiNpLEksCSUamJnrtO2bQn UqYsZnKKPrnN1bIZLaUBFr wUkchaxlTQ1vg1MsxHritL 2rMoXiTrDnMYm6KTByDZVj Pug4MFXqGDpfQNBvRZFkAq SbHJLwLKLlf94qhLK5qpHo ApT3VDPert9tiS7jDRiinz XkmKalqiLlynZffM8xoHIo cFLap23ucMG7oSUphSQxBv JuP88rryIkYOdfGsagdPSn GtbwgGAcBcQmW28hXEThKt R8QKFhUaJ4OCReKPWfhAht ZI2eUDsoBQ08ICweCH95AG NtIGFuZCAxLjIgeCAwLjcg fEOkWrXxQ06bSpWOoHPsBl FiQXSeXVA4VVSsKPBfiPDt nmNrkiLqdX1iIEObHT5gSK AmjvkbxMy6RKLaD1Fnu48n ZCByZXZlYWxpbmcgYSBmcm owCpavBULga4z6cH9lJZHr iZSta9SxSjWbNC9qZDKdTN QkOUEyJRhwLRHbJsFcN24h utOlZBCyCLUkaGXfY5UfMY BhbmQgdGhlIGVudGlyZSBz oZZivW9bodSmilDvhTHykC X1OLJuCPXwEYKuZBKTIZLt KVBqvpMYIZN0mH1rCMChTJ A9IGRamlWXSSpwhJTorgjx PKoowjOhOZA1SgYqNBlcCL XzhDwhnM2hOhZcKjCyUMQE IGdpiCTyO4WrnVJjg0c2xF 9pZCBmcmFnbWVudFxwYXIg SIGpHUPSIMbip1Uxz82jRV uahbmps9LqzG1diWLvrUNz JvFuZ09xotZotOVrGYW5XH ExMCwgMiBzbWFsbGVzdCBm dxGgzQQvhMCaYSP8Yl6sdD ByOLFwTXEvlpK6VXv5NZEk iiNQfYAvwA6odjLRJTopOG NxE4JgamCaFLywNCYrpp7b bGluIGxhYmVsbGVkIHdpdG ggdGhlIHBhdGllbnRccGxh uR6cQzZpCeFpDLk5ISYoUc BcJzkyXHBsYWluXGYxXGZz HoNjftBhHH7sLYFIXDOhsN 4pCAVfRXIwhRlcX4TgBJJb qL2bs8epJEDuOORzV45hzU ytrK3gWnJnCpJlRMq3FWIm YUKiUrc8PNYsPFajWTWcLD DdOhMnNFTpCDJxl59feQD6 moTbKpXcTXQiub6iiE6pAQ xhdnNnrDhtipQli4R6KHSq m8X5AHBiokOelRCqqOAoHZ PxQiG4RQYkSxP6AECwHkGe gBqeOGPjQKWjsNRrzN2ihz YqhnOgwTe0EDFjFIE7wTZe yFryCXHmXhzubKB2CKVgIo KicqEwn2CayEs9uIYfGLoe ZFHluV8pkR7mBsRyANXyqc DZiDOcmD4hkoJATUuqCZMl Y9PoqwZwNKycSKDigb6hnJ luIGxhYmVsbGVkIHdpdGgg dGhlIHBhdGllbnRccGxhaW 1oEeZoGlRlPBf7GUIkHmQv JzkyXHBsYWluXGYxXGZzMj AisvElEP4xYHQHYFDyvU1n TPRvWBOqhDygB9UdTCZlrL 9sg6icRZKcZwivO81ggPwp eR7hUlCkYqVxYBh0TTZtQR VbAgd5VKNiVUxkRVDsBHRe SfJpJAUpKTGis37uuFU7ui FiInSoTVAken5ppN9xUGgn ygJsjZuftcPch9V2JDMbd5 V0HJRfjaBfqVYedSVeNSTp BcV8WVLsJaG9SRCyDmQyvV clMHVpKXCbaDNvdD6pfkTt jkHvzQo1CJDcRZG1yVJkbB ipGFUmZtudyUT6FNLjBuCg cwFcu8CbxWu4sSLqDPeiAN BndL5wuP4lYiRsECEmjzBP fEBkuU7fyqFGLKbgINOhP7 TkumGoGZhnBECeno0gsNcv IGxhYmVsbGVkIHdpdGggdG xdXDCpvQzigwLsyYzahM1s RhJiVrWeUBw7KIIkTuUdXp kyXHBsYWluXGYxXGZzMjAg loZyXC1oOJUUPQGunL8vAN YbPMSwuQeqR6FzDYCxjS1s p2iqXKSuIdrzM22ynDcxuI 7jByXxKjQtKXs7YYUqDQVh Zgj7UHLeDVjiTNXdCXZhVf EzTQTaIWGnw50ihPD8arCd DnGsRDErlp6abL8dQPqnvh TetUjsclCff3A5KZLub4K8 ZSBmcmFnbWVudHMgKDAuNC Y3AYMqMgQ7CKGzZlYlcBbo MVLlBRUmqQKyiN9zdkXtcn XucGw6OLXsZJO4fIFkmHlk DDLtLhtgnKT4TBNxOeZxmp Xfa0TxiYq1wUSjLFaiZCWn eS9svD0hLGMfGFTzsmTEyH VagT0glpYBCVfrTFXjQ8Ej mvVvXMtgDKXhjd3ylYsyDT xhYmVsbGVkIHdpdGggdGhl IQEdgUsxduGdpCqkgF6zJu AlLuCgQUr7KGCyTsKcElom XHBsYWluXGYxXGZzMjAgcy JuYO1aVCMRJUDkyS5zCQWn YQRjsRslE1ZmUCSvkA0pe5 jvJEAqXrerU53hfKsibM3m KrHvIjTqLJo8HCVvSRTdZn j0JVIyDQjkZFTlIZUdXpNe UZTkUDWno16uwHX8bhTbMt XxKZStzn8wbL8vYTwfzlQr yNquivHti1E8GFAfc7M2AQ BmcmFnbWVudHMgKDAuNiB4 MEEyXmE8AUWdKzWogOdzAZ TdZJJopGWxcI5wnsCftuJp oPw8NCUgBMM5bKJxkUpxDS DpBycweCH9FQPbLdTtxtUj z6JsiVj4eRUzUMvkLXCpuB 3ajC1jFVTePDJhodmtXHUw XHBsYWluXGYwXGZzMjBccG llqV8aCdAuFwUqRWYGSCQw TE24ogdfiuAODLXlGWT4zE 0pl3xhy3FyCZLwnAM5CG85 QHjevFObixgjPxdonqT1RA zadlzsLQUzRAgtH4bbQkNh KSDegJmoIlwun0YbGRIkVI NqPTgknkQ8XGNmwcwaVCFy fGpktWxotD2gSlBfYaByUJ xwbGFpblxmMVxmczIwXHBh cn0= Embedded Images (test code = 8498205527) [facility] 14:14:00 Test Item Value Reference Range Interpretation Comments POCT GLU (test code = 6442932106) 88 mg/dL 70-110 Lab Interpretation (test code = Normal 88129-4) [facility] METABOLIC PANEL (NA, K, CL, CO2, GLUCOSE, BUN, CREATININE, CA)2019-08-31 10:39:00 Test Item Value Reference Range Interpretation Comments NA (test code = 137 mmol/L 135-145 1671793390) K (test code = 3.8 mmol/L 3.5-5 3023525483) CL (test code = 104 mmol/L 98-108 5189183212) CO2 TOTAL (test code = 27 mmol/L 23-31 8312229006) AGAP (test code = 2-16 9757365696) BUN (test code = 25 mg/dL 7-23 H 0705998260) GLUCOSE (test code = 115 mg/dL 70-110 H 7222453174) CREATININE (test code = 1.79 mg/dL 0.6-1.25 H 7340841038) CALCIUM (test code = 7.8 mg/dL 8.6-10.6 L 9961045576) eGFR Calculation mL/min/1.73m2 (Non-) (test code = 4773314927) eGFR Calculation mL/min/1.73m2 () (test code = 7229713027) JUAN LUIS (test code = JUAN LUIS) Association of Glomerular Filtration Rate (GFR) and Staging of Kidney Disease* + --+ --+ ------+| GFR (mL/min/1.73 m2) ?| With Kidney Damage ?| ?Without Kidney Damage+ --------+ --------+ +| ?>90 ?| ?Stage one ?| ? Normal ?+ ---+ ---+ -------+| ?60-89 ?| ?Stage two ?| ? Decreased GFR ? + --+ --+ ------+| ?30-59 ?| ?Stage three ?| ? Stage three ? + --+ --+ ------+| ?15-29 ?| ?Stage four ? | ? Stage four ?+ ---+ ---+ -------+| ?<15 (or dialysis) ? ?| ?Stage five ? | ? Stage five ?+ ---+ ---+ -------+ *Each stage assumes the associated GFR level has been in effect for at least three months. ?Stages 1 to 5, with or without kidney disease, indicate chronic kidney disease. Notes: Determination of stages one and two (with eGFR >59mL/min/1.73 m2) requires estimation of kidney damage for at least three months as defined by structural or functional abnormalities of the kidney, manifested by either:Pathological abnormalities or Markers of kidney damage (including abnormalities in the composition of the blood or urine or abnormalities in imaging tests). Lab Interpretation Abnormal (test code = 96394-7) [facility] GLUCOSE (AUTOMATED)2019-08-31 10:31:00 Test Item Value Reference Range Interpretation Comments POCT GLU (test code = 8983103481) 137 mg/dL 70-110 H Lab Interpretation (test code = Abnormal 45340-3) [facility] WITH [id number] 10:30:00 Test Item Value Reference Range Interpretation Comments WBC (test code = See_Comment [Automated 6690-2) message] The sy stem which generated this result transmitted reference range : 4.20 - 10.70 10*3/?L. The reference range was not used to interpret this result as normal/abnormal . RBC (test code = See_Comment L [Automated 789-8) message] The sy stem which generated this result transmitted reference range : 4.26 - 5.52 10*6/?L. The reference range was not used to interpret this result as normal/abnormal . HGB (test code = 7.5 g/dL 12.2-16.4 L 718-7) HCT (test code = 24.1 % 38.4-49.3 L 4544-3) MCV (test code = 66.6 fL 81.7-95.6 L 787-2) MCH (test code = 20.7 pg 26.1-32.7 L 785-6) MCHC (test code = 31.1 g/dL 31.2-35 L 786-4) RDW-SD (test code = 35.0 fL 38.5-51.6 L 64300-4) RDW-CV (test code = 14.7 % 12.1-15.4 788-0) PLT (test code = See_Comment [Automated 777-3) message] The sy stem which generated this result transmitted reference range : 150 - 328 10*3/ ?L. The reference r christine was not used to interpret this result as normal/abnormal . MPV (test code = 10.4 fL 9.8-13 35530-0) NRBC/100 WBC (test See_Comment [Automat ed code = 0739407875) message] The system which generated this result transmitted reference range : 0.0 - 10.0 /100 WBCs. The refer ence range was not u sed to interpret th is result as normal/abnormal . NRBC x10^3 (test code <0.01 See_Comment [Auto mated = 9303687545) message] The s ystem which generated this result transmitted reference range : 10*3/?L. The reference range was not used to interpret this result as normal/abnormal . GRAN MAT (NEUT) % 60.5 % (test code = 770-8) IMM GRAN % (test code 0.20 % = 5738849427) LYMPH % (test code = 24.9 % 736-9) MONO % (test code = 9.6 % 5905-5) EOS % (test code = 4.1 % 713-8) BASO % (test code = 0.7 % 706-2) GRAN MAT x10^3(ANC) 5.16 10*3/uL 1.99-6.95 (test code = 8070645757) IMM GRAN x10^3 (test <0.03 0-0.06 code = 6321522613) LYMPH x10^3 (test code 2.13 10*3/uL 1.09-3.23 = 731-0) MONO x10^3 (test code 0.82 10*3/uL 0.36-1.02 = 742-7) EOS x10^3 (test code = 0.35 10*3/uL 0.06-0.53 711-2) BASO x10^3 (test code 0.06 10*3/uL 0.01-0.09 = 704-7) Lab Interpretation Abnormal (test code = 80982-0) [facility] GLUCOSE (AUTOMATED)2019-08-31 06:17:00 Test Item Value Reference Range Interpretation Comments POCT GLU (test code = 0750278442) 177 mg/dL 70-110 H Lab Interpretation (test code = Abnormal 02522-3) [facility] GLUCOSE (AUTOMATED)2019-08-31 02:18:00 Test Item Value Reference Range Interpretation Comments POCT GLU (test code = 4666393006) 86 mg/dL 70-110 Lab Interpretation (test code = Normal 06023-3) [facility] GLUCOSE (AUTOMATED)2019-08-30 21:57:00 Test Item Value Reference Range Interpretation Comments POCT GLU (test code = 0057250140) 140 mg/dL 70-110 H Lab Interpretation (test code = Abnormal 84547-7) [facility] GLUCOSE (AUTOMATED)2019-08-30 18:10:00 Test Item Value Reference Range Interpretation Comments POCT GLU (test code = 2644529390) 95 mg/dL 70-110 Lab Interpretation (test code = Normal 40659-6) [facility] GLUCOSE (AUTOMATED)2019-08-30 14:11:00 Test Item Value Reference Range Interpretation Comments POCT GLU (test code = 2280156335) 123 mg/dL 70-110 H Lab Interpretation (test code = Abnormal 90902-9) [facility] GLUCOSE (AUTOMATED)2019-08-30 11:04:00 Test Item Value Reference Range Interpretation Comments POCT GLU (test code = 2418843121) 136 mg/dL 70-110 H Lab Interpretation (test code = Abnormal 25842-7) [facility] GLUCOSE (AUTOMATED)2019-08-30 05:39:00 Test Item Value Reference Range Interpretation Comments POCT GLU (test code = 5660632638) 172 mg/dL 70-110 H Lab Interpretation (test code = Abnormal 42111-5) [facility] GLUCOSE (AUTOMATED)2019-08-30 04:19:00 Test Item Value Reference Range Interpretation Comments POCT GLU (test code = 9750561999) 198 mg/dL 70-110 H Lab Interpretation (test code = Abnormal 63506-0) [facility] GLUCOSE (AUTOMATED)2019-08-29 18:14:00 Test Item Value Reference Range Interpretation Comments POCT GLU (test code = 4216391353) 93 mg/dL 70-110 Lab Interpretation (test code = Normal 26147-5) [facility] GLUCOSE (AUTOMATED)2019-08-29 14:19:00 Test Item Value Reference Range Interpretation Comments POCT GLU (test code = 5890152288) 70 mg/dL 70-110 Lab Interpretation (test code = Normal 57613-5) [facility] METABOLIC PANEL (21314)2019-08-29 09:59:00 Test Item Value Reference Range Interpretation Comments NA (test code = 136 mmol/L 135-145 3366429490) K (test code = 3.5 mmol/L 3.5-5 2298811945) CL (test code = 105 mmol/L 98-108 4978818151) CO2 TOTAL (test code = 26 mmol/L 23-31 1209096633) AGAP (test code = 2-16 7774335881) BUN (test code = 21 mg/dL 7-23 7198112442) GLUCOSE (test code = 58 mg/dL 70-110 L 8889794670) CREATININE (test code = 0.95 mg/dL 0.6-1.25 1342973561) TOTAL BILI (test code = 0.2 mg/dL 0.1-1.9 6025814836) CALCIUM (test code = 7.4 mg/dL 8.6-10.6 L 0967634402) T PROTEIN (test code = 5.2 g/dL 6.3-8.2 L 9666492496) ALBUMIN (test code = 2.4 g/dL 3.5-5 L 6842474677) ALK PHOS (test code = 67 U/L 34-122 0294439564) ALTv (test code = 15 U/L 5-50 1742-6) AST(SGOT) (test code = 28 U/L 13-40 3693071020) eGFR Calculation mL/min/1.73m2 (Non-) (test code = 7884923902) eGFR Calculation mL/min/1.73m2 () (test code = 8260188219) JUAN LUIS (test code = JUAN LUIS) Association of Glomerular Filtration Rate (GFR) and Staging of Kidney Disease* + --+ --+ ------+| GFR (mL/min/1.73 m2) ?| With Kidney Damage ?| ?Without Kidney Damage+ --------+ --------+ +| ?>90 ?| ?Stage one ?| ? Normal ?+ ---+ ---+ -------+| ?60-89 ?| ?Stage two ?| ? Decreased GFR ? + --+ --+ ------+| ?30-59 ?| ?Stage three ?| ? Stage three ? + --+ --+ ------+| ?15-29 ?| ?Stage four ? | ? Stage four ?+ ---+ ---+ -------+| ?<15 (or dialysis) ? ?| ?Stage five ? | ? Stage five ?+ ---+ ---+ -------+ *Each stage assumes the associated GFR level has been in effect for at least three months. ?Stages 1 to 5, with or without kidney disease, indicate chronic kidney disease. Notes: Determination of stages one and two (with eGFR >59mL/min/1.73 m2) requires estimation of kidney damage for at least three months as defined by structural or functional abnormalities of the kidney, manifested by either:Pathological abnormalities or Markers of kidney damage (including abnormalities in the composition of the blood or urine or abnormalities in imaging tests). Lab Interpretation Abnormal (test code = 10879-3) [facility] GLUCOSE (AUTOMATED)2019-08-29 09:59:00 Test Item Value Reference Range Interpretation Comments POCT GLU (test code = 2491266988) 130 mg/dL 70-110 H Lab Interpretation (test code = Abnormal 36166-4) [facility] GLUCOSE (AUTOMATED)2019-08-29 06:21:00 Test Item Value Reference Range Interpretation Comments POCT GLU (test code = 3838440472) 79 mg/dL 70-110 Lab Interpretation (test code = Normal 46760-5) [facility] GLUCOSE (AUTOMATED)2019-08-29 03:53:00 Test Item Value Reference Range Interpretation Comments POCT GLU (test code = 8598281218) 157 mg/dL 70-110 H Lab Interpretation (test code = Abnormal 38046-7) [facility] ABDOMEN LIMITED WITH [id number] 00:28:331. Slightly enlarged liver with increased and coarsened echotexturesuggestive of chronic liver parenchymal disease2. Small amount of gallbladder sludge3. Echogenic kidneys consistent with chronic renaldisease.4. Right renal cyst5. Small left pleural effusion EXAM: Ultrasound of the abdomen with Doppler evaluation of the hepaticvessels HISTORY: liver evaluation Please eval liver for cirrhosis, abnormalities TECHNIQUE:Sonographic evaluation of the abdomen is performed. Dopplerevaluation of the portal vein is carried out. COMPARISON: Renal ultrasound dated 09/28/2017 FINDINGS: Liver is slightly enlarg ed in size and measures 17.4 cm. The echotexture isincreased and coarsened in appearance. No definite focal masses are presentwithin the liver. The portal vein is patent and measures 1.2 cm. Portal venous flow is in thenormal direction. The gallbladder is normal in size. Echogenic debris is present in thegallbladder. No wall thickening or pericholecystic fluid is present. Nobiliary tree dilation is noted. Common bile duct is normal and measures 2.4mm. The pancreas is not visualized secondary to midline gas. The right kidney measures 11.8 x 6.7 x 6.6 cm. The kidney is echogenic. Awell-circumscribed a nechoic masses present in the inferior pole measuring3.4 x 3.4 x 2.6 cm. The left kidney appears to be normal in size but increased in echotexture.. A left pleural effusion is seen. Spleen measures 10.3 cm. The upper abdominal aorta and intrahepatic IVC are normal. [facility], Radiant Results Inft User - 08/28/2019 6:29 PM CSTEXAM: Ultrasound of the abdomen with Doppler evaluation of the hepaticvesselsHISTORY: liver evaluation Please eval liver for cirrhosis, abnormalitiesTECHNIQUE:Sonographic evaluationof the abdomen is performed. Dopplerevaluation of the portal vein is carried out.COMPARISON: Renal ultrasound dated 09/28/2017FINDINGS:Liver is slightly enlarged in size and measures 17.4 cm. The echotexture isincreased and coarsened in appearance. No definite focal masses are presentwithin the liver.The portal vein is patent and measures 1.2 cm. Portal venous flow is in thenormal direction.The gallbladder is normal in size. Echogenic debris is present in thegallbladder. No wall thickening or pericholecystic fluid is present. Nobiliary tree dilation is noted. Common bile duct is normal and measures 2.4mm.The pancreas is not visualized secondary to midline gas.The right kidney measures 11.8 x 6.7 x 6.6 cm. The kidney is echogenic. Awell-circumscribed anechoic masses present in the inferior pole gal uring3.4 x 3.4 x 2.6 cm.The left kidney appears to be normal in size but increased in echotexture..Aleft pleural effusion is seen.Spleen measures 10.3 cm.The upper abdominal aorta and intrahepatic IVCare normal.IMPRESSION1. Slightly enlarged liver with increased and coarsened echotexturesuggestive of chronic liver parenchymal disease2. Small amount of gallbladder sludge3. Echogenic kidneys consistent with chronic renal disease.4. Right renal cyst5. Small left [facility]usionUn[facility]2019-08-28 22:47:00 Test Item Value Reference Range Interpretation Comments POCT GLU (test code = 2654846348) 139 mg/dL 70-110 H Lab Interpretation (test code = Abnormal 99937-3) [facility] GLUCOSE (AUTOMATED)2019-08-28 18:56:00 Test Item Value Reference Range Interpretation Comments POCT GLU (test code = 8528898026) 90 mg/dL 70-110 Lab Interpretation (test code = Normal 73881-8) [facility] METABOLIC PANEL (NA, K, CL, CO2, GLUCOSE, BUN, CREATININE, CA)2019-08-28 14:50:00 Test Item Value Reference Range Interpretation Comments NA (test code = 136 mmol/L 135-145 9087777250) K (test code = 4.1 mmol/L 3.5-5 5671764478) CL (test code = 105 mmol/L 98-108 0872365461) CO2 TOTAL (test code = 27 mmol/L 23-31 7947572470) AGAP (test code = 2-16 6890075542) BUN (test code = 26 mg/dL 7-23 H 8963781602) GLUCOSE (test code = 78 mg/dL 70-110 7184139473) CREATININE (test code = 1.06 mg/dL 0.6-1.25 9903663037) CALCIUM (test code = 7.5 mg/dL 8.6-10.6 L 8139143368) eGFR Calculation mL/min/1.73m2 (Non-) (test code = 0686271106) eGFR Calculation mL/min/1.73m2 () (test code = 5061715524) JUAN LUIS (test code = JUAN LUIS) Association of Glomerular Filtration Rate (GFR) and Staging of Kidney Disease* + --+ --+ ------+| GFR (mL/min/1.73 m2) ?| With Kidney Damage ?| ?Without Kidney Damage+ --------+ --------+ +| ?>90 ?| ?Stage one ?| ? Normal ?+ ---+ ---+ -------+| ?60-89 ?| ?Stage two ?| ? Decreased GFR ? + --+ --+ ------+| ?30-59 ?| ?Stage three ?| ? Stage three ? + --+ --+ ------+| ?15-29 ?| ?Stage four ? | ? Stage four ?+ ---+ ---+ -------+| ?<15 (or dialysis) ? ?| ?Stage five ? | ? Stage five ?+ ---+ ---+ -------+ *Each stage assumes the associated GFR level has been in effect for at least three months. ?Stages 1 to 5, with or without kidney disease, indicate chronic kidney disease. Notes: Determination of stages one and two (with eGFR >59mL/min/1.73 m2) requires estimation of kidney damage for at least three months as defined by structural or functional abnormalities of the kidney, manifested by either:Pathological abnormalities or Markers of kidney damage (including abnormalities in the composition of the blood or urine or abnormalities in imaging tests). Lab Interpretation Abnormal (test code = 62579-5) [facility] Test Item Value Reference Range Interpretation Comments MAGNESIUM (test code = 0778310256) 2.3 mg/dL 1.7-2.4 Lab Interpretation (test code = Normal 86788-4) [facility] WITH [id number] 14:45:00 Test Item Value Reference Range Interpretation Comments WBC (test code = See_Comment [Automated 6690-2) message] The sy stem which generated this result transmitted reference range : 4.20 - 10.70 10*3/?L. The reference range was not used to interpret this result as normal/abnormal . RBC (test code = See_Comment L [Automated 789-8) message] The sy stem which generated this result transmitted reference range : 4.26 - 5.52 10*6/?L. The reference range was not used to interpret this result as normal/abnormal . HGB (test code = 7.7 g/dL 12.2-16.4 L 718-7) HCT (test code = 24.5 % 38.4-49.3 L 4544-3) MCV (test code = 67.1 fL 81.7-95.6 L 787-2) MCH (test code = 21.1 pg 26.1-32.7 L 785-6) MCHC (test code = 31.4 g/dL 31.2-35 786-4) RDW-SD (test code = 35.3 fL 38.5-51.6 L 90375-1) RDW-CV (test code = 14.6 % 12.1-15.4 788-0) PLT (test code = See_Comment [Automated 777-3) message] The sy stem which generated this result transmitted reference range : 150 - 328 10*3/ ?L. The reference r christine was not used to interpret this result as normal/abnormal . MPV (test code = 10.9 fL 9.8-13 74404-0) NRBC/100 WBC (test See_Comment [Automat ed code = 9272974678) message] The system which generated this result transmitted reference range : 0.0 - 10.0 /100 WBCs. The refer ence range was not u sed to interpret th is result as normal/abnormal . NRBC x10^3 (test code <0.01 See_Comment [Auto mated = 3168067272) message] The s ystem which generated this result transmitted reference range : 10*3/?L. The reference range was not used to interpret this result as normal/abnormal . GRAN MAT (NEUT) % 63.4 % (test code = 770-8) IMM GRAN % (test code 0.50 % = 2783440623) LYMPH % (test code = 21.1 % 736-9) MONO % (test code = 10.4 % 5905-5) EOS % (test code = 4.1 % 713-8) BASO % (test code = 0.5 % 706-2) GRAN MAT x10^3(ANC) 4.14 10*3/uL 1.99-6.95 (test code = 2160663727) IMM GRAN x10^3 (test 0.03 10*3/uL 0-0.06 code = 8272719928) LYMPH x10^3 (test code 1.38 10*3/uL 1.09-3.23 = 731-0) MONO x10^3 (test code 0.68 10*3/uL 0.36-1.02 = 742-7) EOS x10^3 (test code = 0.27 10*3/uL 0.06-0.53 711-2) BASO x10^3 (test code 0.03 10*3/uL 0.01-0.09 = 704-7) Lab Interpretation Abnormal (test code = 50357-1) [facility] GLUCOSE (AUTOMATED)2019-08-28 14:07:00 Test Item Value Reference Range Interpretation Comments POCT GLU (test code = 0049459344) 134 mg/dL 70-110 H Lab Interpretation (test code = Abnormal 14885-9) [facility] GLUCOSE (AUTOMATED)2019-08-28 07:20:00 Test Item Value Reference Range Interpretation Comments POCT GLU (test code = 4701456346) 144 mg/dL 70-110 H Lab Interpretation (test code = Abnormal 45896-6) [facility] GLUCOSE (AUTOMATED)2019-08-28 03:13:00 Test Item Value Reference Range Interpretation Comments POCT GLU (test code = 4657748670) 203 mg/dL 70-110 H Lab Interpretation (test code = Abnormal 19237-9) [facility] GLUCOSE (AUTOMATED)2019-08-27 22:32:00 Test Item Value Reference Range Interpretation Comments POCT GLU (test code = 2351383891) 96 mg/dL 70-110 Lab Interpretation (test code = Normal 99931-5) [facility] THORAX WO [id number] 18:39:06 Bilateral diffuse interlobular septal thickening, bilateral moderatepleural effusion, small pericardial effusion, small volume ascites,anasarca associated with cardiomegaly likely consistent with congestiveheart failure. Slightly enlarged main pulmonary artery concerning for increased pulmonaryarterial pressure, echocardiographic evaluation is recommended. EXAM: CT THORAX WITHOUT CONTRAST HISTORY: Suspected hypertrophic cardiomyopathy COMPARISON: Chest x-ray dated 08/22/2019, abdominal CT dated 09/20/2017. DOSE: 560 mGy-cm TECHNIQUE AND FINDINGS: Helical, 0.625 mm axial images from the level ofthe thoracic inlet through the upper abdomen were acquired andreconstructed at 1.25 mm intervals without intravenous contrast. Axialmaximum intensity projections, and coronal and sagittal reconstructionswere obtained. Axial maximum intensity projections, and coronal andsagittal reconstructions were obtained.(DFOV = cm) FINDINGS: LINES AND TUBES: None LOWER NECK/THYROID: The visualized portions of thyroid gl and are normal. LUNGS: Bilateral diffuse interlobular septal thickening bilateral lowerlobe groundglass opacities are noted consistent with pulmonary edema. The 6mm right middle lobe groundglass noduleseen in prior study is no longervisualized, likely inflammatory in etiology. PLEURA: Bilateral moderate pleural effusion are similar to prior abdominalCT study dated 09/20/2017. No pneumothorax. Subcentimeter parenchymal cyst isseen in the left lower lobe (2:164) CENTRAL AIRWAY: No bronchiectasis, mucusplugging, or bronchial wallthickening. MEDIASTINUM: No mediastinal lymphadenopathy. Cardiomegaly, sev ere coronaryarterial calcifications. Multiple coronary stent in the RCA. Smallpericardial effusion. No pericardial effusion. AORTA AND GREAT VESSELS: The visualized portions of the aorta are normal incaliber. Mild atherosclerotic calcifications in the aortic arc. Mainpulmonary artery is slightly enlarged measuring 3.3 cm. BONES AND SOFT TISSUES: No suspicious lytic or blastic skeletal lesions.Severedegenerative changes in the visualized lower cervical spine. VISUALIZED UPPER ABDOMEN: Small volume ascites. Bilateral thickening of theadrenal glands. 3 cm right renal cortical cyst. Diffuse abdominalwalledema. [facility], Radiant Results Inft User - 08/27/2019 12:40 PM CSTEXAM: CT THORAX WITHOUT CONTRASTHISTORY: Suspected hypertrophic cardiomyopathyCOMPARISON: Chest x-ray dated 08/22/2019, abdominal CT dated 09/20/2017.DOSE: 560 mGy-cmTECHNIQUE AND FINDINGS: Helical, 0.625 mm axial images from the level ofthe thoracic inlet through the upper abdomen were acquired andreconstructed at 1.25 mm intervals without intravenous contrast. Axialmaximum intensity projections, and coronal and sagittal reconstructionswere obtained. Axial maximum intensity projections, and coronal andsagittal reconstructions were obtained. (DFOV = cm)FINDINGS:LINES AND TUBES: NoneLOWER NECK/THYROID: The visualized portions of thyroid gland are normal.LUNGS: Bilateral diffuse interlobular septal thickening bilateral lowerlobe groundglass opacities are noted consistent with pulmonary edema. The 6mm right middle lobe groundglass nodule seen in prior study is no longervisualized, likely inflammatory in etiology.PLEURA: Bilateral moderate pleural effusion are similar to prior abdominalCT study dated 09/20/2017. No pneumothorax. Subcentimeter parenchymal cyst isseen in the left lower lobe (2:164)CENTRAL AIRWAY: No bronchiectasis, mucusplugging, or bronchial wallthickening.MEDIASTINUM: No mediastinal lymphadenopathy. Cardiomegaly, severe coronaryarterial calcifications. Multiple coronary stent in the RCA. Smallpericardial effusion. No pericardial effusion. AORTA AND GREAT VESSELS: The visualized portions of the aorta are normal incaliber. Mild atherosclerotic calcifications in the aortic arc. Mainpulmonary artery is slightly enlarged measuring 3.3 cm.BONES AND SOFT TISSUES: No suspicious lytic or blastic skeletal lesions.Severe degenerative changes in the visualized lower cervical spine.VISUALIZED UPPER ABDOMEN: Small volume ascites. Bilateral thickening of theadrenal glands. 3 cm right renal cortical cyst. Diffuse abdominal wall edema.IMPRESSIONBilateral diffuse interlobular septal thickening, bilateral moderatepleural effusion, small pericardial effusion, small volume ascites,anasarca associated with cardiomegaly likely consistent with congestiveheart failure.Slightly enlarged main pulmonary artery concerning for increased pulmonaryarterial pressure, echocardiographic evaluation is recommended.[facility] GLUCOSE (AUTOMATED)2019-08-27 17:57:00 Test Item Value Reference Range Interpretation Comments POCT GLU (test code = 5310894529) 155 mg/dL 70-110 H Lab Interpretation (test code = Abnormal 86734-6) [facility] GLUCOSE (AUTOMATED)2019-08-27 14:13:00 Test Item Value Reference Range Interpretation Comments POCT GLU (test code = 3709547226) 151 mg/dL 70-110 H Lab Interpretation (test code = Abnormal 31682-7) [facility] GLUCOSE (AUTOMATED)2019-08-27 10:41:00 Test Item Value Reference Range Interpretation Comments POCT GLU (test code = 212 mg/dL 70-110 H Notifi ed Provider [id number]) Lab Interpretation (test Abnormal code = 82961-3) [facility] GLUCOSE (AUTOMATED)2019-08-27 05:59:00 Test Item Value Reference Range Interpretation Comments POCT GLU (test code = 160 mg/dL 70-110 H Notifi ed Provider [id number]) Lab Interpretation (test Abnormal code = 03025-5) [facility] GLUCOSE (AUTOMATED)2019-08-27 04:13:00 Test Item Value Reference Range Interpretation Comments POCT GLU (test code = 8772488663) 112 mg/dL 70-110 H Lab Interpretation (test code = Abnormal 06965-9) [facility] GLUCOSE (AUTOMATED)2019-08-27 02:40:00 Test Item Value Reference Range Interpretation Comments POCT GLU (test code = 184 mg/dL 70-110 H Notifi ed Provider [id number]) Lab Interpretation (test Abnormal code = 77481-7) [facility] GLUCOSE (AUTOMATED)2019-08-26 23:44:00 Test Item Value Reference Range Interpretation Comments POCT GLU (test code = 8191549769) 263 mg/dL 70-110 H Lab Interpretation (test code = Abnormal 09884-6) [facility] GLUCOSE (AUTOMATED)2019-08-26 23:02:00 Test Item Value Reference Range Interpretation Comments POCT GLU (test code = 8560373025) 246 mg/dL 70-110 H Lab Interpretation (test code = Abnormal 08874-3) [facility] Arterial Blood Gas.2019-08-26 20:26:00 Test Item Value Reference Range Interpretation Comments PH (test code = 2) 7.35-7.45 H PCO2 (test code = See_Comment [Automat ed message] 9932730252) The system [employer] generated this result transmitted ref erence range: 35 - 45 mmHg. The reference r christine was not used to interpret this result as normal/abnor mal. PO2 (test code = See_Comment LL [Automated message] 3930963494) The system [employer] generated this result transmitted ref erence range: 80 - 100 mmHg. The reference r christine was not used to interpret this result as normal/abnor mal. HCO3 (test code = See_Comment H [Automate d message] 5219222997) The system [employer] generated this result transmitted ref erence range: 22 - 26 mEq/L. The reference r christine was not used to interpret this result as normal/abnor mal. BE (test code = See_Comment H [Automated message] 9394223330) The system [employer] generated this result transmitted ref erence range: -3.0 - 3 .0 mEq/L. The refe rence range was not u sed to interpret this result as normal/abnor mal. Lab Interpretation (test Abnormal code = 79772-1) [facility] GLUCOSE (AUTOMATED)2019-08-26 18:12:00 Test Item Value Reference Range Interpretation Comments POCT GLU (test code = 9021398041) 172 mg/dL 70-110 H Lab Interpretation (test code = Abnormal 27745-4) [facility] GLUCOSE (AUTOMATED)2019-08-26 15:33:00 Test Item Value Reference Range Interpretation Comments POCT GLU (test code = 4103808417) 86 mg/dL 70-110 Lab Interpretation (test code = Normal 61740-3) [facility] GLUCOSE (AUTOMATED)2019-08-26 11:57:00 Test Item Value Reference Range Interpretation Comments POCT GLU (test code = 0436633487) 86 mg/dL 70-110 Lab Interpretation (test code = Normal 41774-2) [facility] 21:38:00 Test Item Value Reference Range Interpretation Comments POCT GLU (test code = 3585913785) 89 mg/dL 70-110 Lab Interpretation (test code = Normal 32665-7) [facility] 20:46:00 Test Item Value Reference Range Interpretation Comments POCT GLU (test code = 8373094310) 75 mg/dL 70-110 Lab Interpretation (test code = Normal 53288-0) [facility] 20:46:00 Test Item Value Reference Range Interpretation Comments POCT GLU (test code = 8384585219) 76 mg/dL 70-110 Lab Interpretation (test code = Normal 77571-0) [facility] 20:12:00 Test Item Value Reference Range Interpretation Comments POCT GLU (test code = 5216909686) 83 mg/dL 70-110 Lab Interpretation (test code = Normal 16812-3) [facility]-08[facility]25 19:45:00 Test Item Value Reference Range Interpretation Comments POCT GLU (test code = 6799340485) 96 mg/dL 70-110 Lab Interpretation (test code = Normal 29326-4) [facility] 19:02:00 Test Item Value Reference Range Interpretation Comments POCT GLU (test code = 9169252902) 87 mg/dL 70-110 Lab Interpretation (test code = Normal 94463-3) [facility]-08[facility]25 19:02:00 Test Item Value Reference Range Interpretation Comments POCT GLU (test code = 7148600269) 78 mg/dL 70-110 Lab Interpretation (test code = Normal 45510-3) [facility] 18:28:00 Test Item Value Reference Range Interpretation Comments POCT GLU (test code = 0425825510) 42 mg/dL 70-110 LL Lab Interpretation (test code = Abnormal 59291-1) [facility]:28:00 Test Item Value Reference Range Interpretation Comments POCT GLU (test code = 0103944063) 44 mg/dL 70-110 LL Lab Interpretation (test code = Abnormal 55668-3) [facility] GLUCOSE (AUTOMATED)2019-08-25 18:28:00 Test Item Value Reference Range Interpretation Comments POCT GLU (test code = 7528203883) 77 mg/dL 70-110 Lab Interpretation (test code = Normal 02277-1) [facility] GLUCOSE (AUTOMATED)2019-08-25 18:28:00 Test Item Value Reference Range Interpretation Comments POCT GLU (test code = 1253341899) 110 mg/dL 70-110 Lab Interpretation (test code = Normal 76854-3) [facility] METABOLIC PANEL (NA, K, CL, CO2, GLUCOSE, BUN, CREATININE, CA)2019-08-25 10:57:00 Test Item Value Reference Range Interpretation Comments NA (test code = 136 mmol/L 135-145 2410156858) K (test code = 4.5 mmol/L 3.5-5 8690835454) CL (test code = 100 mmol/L 98-108 4362329831) CO2 TOTAL (test code = 30 mmol/L 23-31 4065810542) AGAP (test code = 2-16 7498374005) BUN (test code = 38 mg/dL 7-23 H 1747681010) GLUCOSE (test code = 89 mg/dL 70-110 3424410802) CREATININE (test code = 1.46 mg/dL 0.6-1.25 H 7863758348) CALCIUM (test code = 7.7 mg/dL 8.6-10.6 L 8257294431) eGFR Calculation mL/min/1.73m2 (Non-) (test code = 0055792217) eGFR Calculation mL/min/1.73m2 () (test code = 2832088006) JUAN LUIS (test code = JUAN LUIS) Association of Glomerular Filtration Rate (GFR) and Staging of Kidney Disease* + --+ --+ ------+| GFR (mL/min/1.73 m2) ?| With Kidney Damage ?| ?Without Kidney Damage+ --------+ --------+ +| ?>90 ?| ?Stage one ?| ? Normal ?+ ---+ ---+ -------+| ?60-89 ?| ?Stage two ?| ? Decreased GFR ? + --+ --+ ------+| ?30-59 ?| ?Stage three ?| ? Stage three ? + --+ --+ ------+| ?15-29 ?| ?Stage four ? | ? Stage four ?+ ---+ ---+ -------+| ?<15 (or dialysis) ? ?| ?Stage five ? | ? Stage five ?+ ---+ ---+ -------+ *Each stage assumes the associated GFR level has been in effect for at least three months. ?Stages 1 to 5, with or without kidney disease, indicate chronic kidney disease. Notes: Determination of stages one and two (with eGFR >59mL/min/1.73 m2) requires estimation of kidney damage for at least three months as defined by structural or functional abnormalities of the kidney, manifested by either:Pathological abnormalities or Markers of kidney damage (including abnormalities in the composition of the blood or urine or abnormalities in imaging tests). Lab Interpretation Abnormal (test code = 22704-1) [facility] WITH [id number] 10:46:00 Test Item Value Reference Range Interpretation Comments WBC (test code = See_Comment [Automated 3390-2) message] The sy stem which generated this result transmitted reference range : 4.20 - 10.70 10*3/?L. The reference range was not used to interpret this result as normal/abnormal . RBC (test code = See_Comment L [Automated 059-8) message] The sy stem which generated this result transmitted reference range : 4.26 - 5.52 10*6/?L. The reference range was not used to interpret this result as normal/abnormal . HGB (test code = 7.9 g/dL 12.2-16.4 L 718-7) HCT (test code = 24.9 % 38.4-49.3 L 4544-3) MCV (test code = 66.0 fL 81.7-95.6 L 787-2) MCH (test code = 21.0 pg 26.1-32.7 L 785-6) MCHC (test code = 31.7 g/dL 31.2-35 786-4) RDW-SD (test code = 34.5 fL 38.5-51.6 L 54289-3) RDW-CV (test code = 14.7 % 12.1-15.4 788-0) PLT (test code = See_Comment [Automated 777-3) message] The sy stem which generated this result transmitted reference range : 150 - 328 10*3/ ?L. The reference r christine was not used to interpret this result as normal/abnormal . MPV (test code = 11.7 fL 9.8-13 58957-3) NRBC/100 WBC (test See_Comment [Automat ed code = 8558856004) message] The system which generated this result transmitted reference range : 0.0 - 10.0 /100 WBCs. The refer ence range was not u sed to interpret th is result as normal/abnormal . NRBC x10^3 (test code <0.01 See_Comment [Auto mated = 5496447790) message] The s ystem which generated this result transmitted reference range : 10*3/?L. The reference range was not used to interpret this result as normal/abnormal . GRAN MAT (NEUT) % 63.6 % (test code = 770-8) IMM GRAN % (test code 0.30 % = 3397620650) LYMPH % (test code = 19.7 % 736-9) MONO % (test code = 12.6 % 5905-5) EOS % (test code = 3.5 % 713-8) BASO % (test code = 0.3 % 706-2) GRAN MAT x10^3(ANC) 5.60 10*3/uL 1.99-6.95 (test code = 4685703891) IMM GRAN x10^3 (test 0.03 10*3/uL 0-0.06 code = 8713284632) LYMPH x10^3 (test code 1.74 10*3/uL 1.09-3.23 = 731-0) MONO x10^3 (test code 1.11 10*3/uL 0.36-1.02 H = 742-7) EOS x10^3 (test code = 0.31 10*3/uL 0.06-0.53 711-2) BASO x10^3 (test code 0.03 10*3/uL 0.01-0.09 = 704-7) Lab Interpretation Abnormal (test code = 57244-4) [id number] 05:01:32Tip of the nasogastric tube is in appropriate position EXAM: KUB HISTORY: NG tube placement TECHNIQUE:KUB radiograph is obtained. FINDINGS:Tip of the nasogastric tube is in the body of the stomach. Large amount of stool is seen throughout the colon. No free air is notedunder the diaphragm. Areas of atelectasis are seen in the lung bases. Mildpulmonary venous congestion is seen. [facility], Radiant Results Inft User - 08/24/2019 11:02 PM CSTEXAM: KUBHISTORY: NG tube placementTECHNIQUE:KUB radiograph is obtained.FINDINGS:Tip of the nasogastric tube is in the body of the stomach.Large amount of stool is seen throughout the colon. No free air is notedunder the diaphragm. Areas of atelectasis are seen in the lung bases. Mildpulmonary venous congestion is seen.IMPRESSIONTip of the nasogastric tube is in appropriate positionUnJoint venture between [facility]SE (AUTOMATED)2019-08-25 02:05:00 Test Item Value Reference Range Interpretation Comments POCT GLU (test code = 75 mg/dL 70-110 Notifi ed Provider [id number]) Lab Interpretation (test Normal code = 53711-0) [facility] GLUCOSE (AUTOMATED)2019-08-24 22:24:00 Test Item Value Reference Range Interpretation Comments POCT GLU (test code = 7119963922) 134 mg/dL 70-110 H Lab Interpretation (test code = Abnormal 34974-2) [facility] GLUCOSE (AUTOMATED)2019-08-24 18:27:00 Test Item Value Reference Range Interpretation Comments POCT GLU (test code = 6056971881) 137 mg/dL 70-110 H Lab Interpretation (test code = Abnormal 05816-2) [facility] GLUCOSE (AUTOMATED)2019-08-24 14:05:00 Test Item Value Reference Range Interpretation Comments POCT GLU (test code = 8953755459) 178 mg/dL 70-110 H Lab Interpretation (test code = Abnormal 46746-4) [facility] (NA, K, CL, CO2, GLUCOSE, BUN, CREATININE, CA)2019-08-24 12:33:00 Test Item Value Reference Range Interpretation Comments NA (test code = 133 mmol/L 135-145 L 4648325197) K (test code = 4.3 mmol/L 3.5-5 3231689727) CL (test code = 98 mmol/L 98-108 9346572108) CO2 TOTAL (test code = 28 mmol/L 23-31 1029704548) AGAP (test code = 2-16 6383454869) BUN (test code = 39 mg/dL 7-23 H 1172824030) GLUCOSE (test code = 122 mg/dL 70-110 H 9192662874) CREATININE (test code = 1.51 mg/dL 0.6-1.25 H 4963193670) CALCIUM (test code = 7.8 mg/dL 8.6-10.6 L 0552677421) eGFR Calculation mL/min/1.73m2 (Non-) (test code = 4683266066) eGFR Calculation mL/min/1.73m2 () (test code = 0533203969) JUAN LUIS (test code = JUAN LUIS) Association of Glomerular Filtration Rate (GFR) and Staging of Kidney Disease* + --+ --+ ------+| GFR (mL/min/1.73 m2) ?| With Kidney Damage ?| ?Without Kidney Damage+ --------+ --------+ +| ?>90 ?| ?Stage one ?| ? Normal ?+ ---+ ---+ -------+| ?60-89 ?| ?Stage two ?| ? Decreased GFR ? + --+ --+ ------+| ?30-59 ?| ?Stage three ?| ? Stage three ? + --+ --+ ------+| ?15-29 ?| ?Stage four ? | ? Stage four ?+ ---+ ---+ -------+| ?<15 (or dialysis) ? ?| ?Stage five ? | ? Stage five ?+ ---+ ---+ -------+ *Each stage assumes the associated GFR level has been in effect for at least three months. ?Stages 1 to 5, with or without kidney disease, indicate chronic kidney disease. Notes: Determination of stages one and two (with eGFR >59mL/min/1.73 m2) requires estimation of kidney damage for at least three months as defined by structural or functional abnormalities of the kidney, manifested by either:Pathological abnormalities or Markers of kidney damage (including abnormalities in the composition of the blood or urine or abnormalities in imaging tests). Lab Interpretation Abnormal (test code = 62027-0) [facility] WITH [id number] 12:27:00 Test Item Value Reference Range Interpretation Comments WBC (test code = See_Comment [Automated 6690-2) message] The sy stem which generated this result transmitted reference range : 4.20 - 10.70 10*3/?L. The reference range was not used to interpret this result as normal/abnormal . RBC (test code = See_Comment L [Automated 789-8) message] The sy stem which generated this result transmitted reference range : 4.26 - 5.52 10*6/?L. The reference range was not used to interpret this result as normal/abnormal . HGB (test code = 8.6 g/dL 12.2-16.4 L 718-7) HCT (test code = 27.7 % 38.4-49.3 L 4544-3) MCV (test code = 66.0 fL 81.7-95.6 L 787-2) MCH (test code = 20.5 pg 26.1-32.7 L 785-6) MCHC (test code = 31.0 g/dL 31.2-35 L 786-4) RDW-SD (test code = 34.7 fL 38.5-51.6 L 65479-9) RDW-CV (test code = 15.0 % 12.1-15.4 788-0) PLT (test code = See_Comment [Automated 777-3) message] The sy stem which generated this result transmitted reference range : 150 - 328 10*3/ ?L. The reference r christine was not used to interpret this result as normal/abnormal . MPV (test code = 11.3 fL 9.8-13 32060-0) IPF % (test code = 4.1 % 1.2-10.7 Platelet count 6340337050) measured by fluorescence method. NRBC/100 WBC (test See_Comment [Automat ed code = 3130586588) message] The system which generated this result transmitted reference range : 0.0 - 10.0 /100 WBCs. The refer ence range was not u sed to interpret th is result as normal/abnormal . NRBC x10^3 (test code <0.01 See_Comment [Auto mated = 8049954728) message] The s ystem which generated this result transmitted reference range : 10*3/?L. The reference range was not used to interpret this result as normal/abnormal . GRAN MAT (NEUT) % 71.8 % (test code = 770-8) IMM GRAN % (test code 0.40 % = 7870613490) LYMPH % (test code = 13.7 % 736-9) MONO % (test code = 11.2 % 5905-5) EOS % (test code = 2.6 % 713-8) BASO % (test code = 0.3 % 706-2) GRAN MAT x10^3(ANC) 6.76 10*3/uL 1.99-6.95 (test code = 9187229608) IMM GRAN x10^3 (test 0.04 10*3/uL 0-0.06 code = 9995988329) LYMPH x10^3 (test code 1.29 10*3/uL 1.09-3.23 = 731-0) MONO x10^3 (test code 1.05 10*3/uL 0.36-1.02 H = 742-7) EOS x10^3 (test code = 0.24 10*3/uL 0.06-0.53 711-2) BASO x10^3 (test code 0.03 10*3/uL 0.01-0.09 = 704-7) Lab Interpretation Abnormal (test code = 62029-7) [facility] GLUCOSE (AUTOMATED)2019-08-24 10:30:00 Test Item Value Reference Range Interpretation Comments POCT GLU (test code = 8863095122) 176 mg/dL 70-110 H Lab Interpretation (test code = Abnormal 21338-9) [facility] GLUCOSE (AUTOMATED)2019-08-24 05:45:00 Test Item Value Reference Range Interpretation Comments POCT GLU (test code = 6160433059) 187 mg/dL 70-110 H Lab Interpretation (test code = Abnormal 34441-0) [facility] GLUCOSE (AUTOMATED)2019-08-24 01:54:00 Test Item Value Reference Range Interpretation Comments POCT GLU (test code = 9390761946) 156 mg/dL 70-110 H Lab Interpretation (test code = Abnormal 71801-8) [facility] GLUCOSE (AUTOMATED)2019-08-23 23:09:00 Test Item Value Reference Range Interpretation Comments POCT GLU (test code = 7521680773) 110 mg/dL 70-110 Lab Interpretation (test code = Normal 01679-1) [facility] [id number] 22:07:00 Test Item Value Reference Range Interpretation Comments TIBC (test code = 9008363138) 230 ug/dL 250-410 L % FE SAT (test code = 0705761004) 15 % 20-50 L Lab Interpretation (test code = Abnormal 26010-3) [facility] 21:58:00 Test Item Value Reference Range Interpretation Comments IRON (test code = 0325980656) 35 ug/dL 50-160 L Lab Interpretation (test code = Abnormal 04153-8) [facility] GLUCOSE (AUTOMATED)2019-08-23 18:08:00 Test Item Value Reference Range Interpretation Comments POCT GLU (test code = 5303534901) 78 mg/dL 70-110 Lab Interpretation (test code = Normal 46304-6) [facility] GLUCOSE (AUTOMATED)2019-08-23 14:32:00 Test Item Value Reference Range Interpretation Comments POCT GLU (test code = 4950991981) 126 mg/dL 70-110 H Lab Interpretation (test code = Abnormal 07416-3) [facility] GLUCOSE (AUTOMATED)2019-08-23 11:58:00 Test Item Value Reference Range Interpretation Comments POCT GLU (test code = 105 mg/dL 70-110 Notifi ed Provider [id number]) Lab Interpretation (test Normal code = 07447-3) [facility] [id number] 11:01:00 Test Item Value Reference Range Interpretation Comments NT-proBNP (test code 7950 pg/mL See_Comment H [Autom ated = 1210030594) message] The system which generated this result transmitted reference range : <=125. The reference range was not used to interpret this result as normal/abnormal . JUAN LUIS (test code = JUAN LUIS) Biotin has been reported to cause a negative bias, interpret results relative to patient's use of biotin. Lab Interpretation Abnormal (test code = 45149-3) [facility] METABOLIC PANEL (NA, K, CL, CO2, GLUCOSE, BUN, CREATININE, CA)2019-08-23 10:52:00 Test Item Value Reference Range Interpretation Comments NA (test code = 135 mmol/L 135-145 1096598275) K (test code = 4.5 mmol/L 3.5-5 3224933219) CL (test code = 101 mmol/L 98-108 3474481768) CO2 TOTAL (test code = 29 mmol/L 23-31 4759491922) AGAP (test code = 2-16 6666850057) BUN (test code = 36 mg/dL 7-23 H 2007524808) GLUCOSE (test code = 57 mg/dL 70-110 L 5703967854) CREATININE (test code = 1.61 mg/dL 0.6-1.25 H 1245347304) CALCIUM (test code = 7.8 mg/dL 8.6-10.6 L 3810121058) eGFR Calculation mL/min/1.73m2 (Non-) (test code = 8607377710) eGFR Calculation mL/min/1.73m2 () (test code = 3042105659) JUAN LUIS (test code = JUAN LUIS) Association of Glomerular Filtration Rate (GFR) and Staging of Kidney Disease* + --+ --+ ------+| GFR (mL/min/1.73 m2) ?| With Kidney Damage ?| ?Without Kidney Damage+ --------+ --------+ +| ?>90 ?| ?Stage one ?| ? Normal ?+ ---+ ---+ -------+| ?60-89 ?| ?Stage two ?| ? Decreased GFR ? + --+ --+ ------+| ?30-59 ?| ?Stage three ?| ? Stage three ? + --+ --+ ------+| ?15-29 ?| ?Stage four ? | ? Stage four ?+ ---+ ---+ -------+| ?<15 (or dialysis) ? ?| ?Stage five ? | ? Stage five ?+ ---+ ---+ -------+ *Each stage assumes the associated GFR level has been in effect for at least three months. ?Stages 1 to 5, with or without kidney disease, indicate chronic kidney disease. Notes: Determination of stages one and two (with eGFR >59mL/min/1.73 m2) requires estimation of kidney damage for at least three months as defined by structural or functional abnormalities of the kidney, manifested by either:Pathological abnormalities or Markers of kidney damage (including abnormalities in the composition of the blood or urine or abnormalities in imaging tests). Lab Interpretation Abnormal (test code = 27559-3) [facility] 10:52:00 Test Item Value Reference Range Interpretation Comments MAGNESIUM (test code = 5688636532) 1.9 mg/dL 1.7-2.4 Lab Interpretation (test code = Normal 67533-7) [facility] WITH [id number] 10:48:00 Test Item Value Reference Range Interpretation Comments WBC (test code = See_Comment [Automated 6690-2) message] The sy stem which generated this result transmitted reference range : 4.20 - 10.70 10*3/?L. The reference range was not used to interpret this result as normal/abnormal . RBC (test code = See_Comment L [Automated 789-8) message] The sy stem which generated this result transmitted reference range : 4.26 - 5.52 10*6/?L. The reference range was not used to interpret this result as normal/abnormal . HGB (test code = 7.9 g/dL 12.2-16.4 L 718-7) HCT (test code = 24.5 % 38.4-49.3 L 4544-3) MCV (test code = 65.7 fL 81.7-95.6 L 787-2) MCH (test code = 21.2 pg 26.1-32.7 L 785-6) MCHC (test code = 32.2 g/dL 31.2-35 786-4) RDW-SD (test code = 34.9 fL 38.5-51.6 L 32433-7) RDW-CV (test code = 14.8 % 12.1-15.4 788-0) PLT (test code = See_Comment [Automated 777-3) message] The sy stem which generated this result transmitted reference range : 150 - 328 10*3/ ?L. The reference r christine was not used to interpret this result as normal/abnormal . MPV (test code = 11.8 fL 9.8-13 28950-2) IPF % (test code = 3.8 % 1.2-10.7 Platelet count 1769561981) measured by fluorescence method. NRBC/100 WBC (test See_Comment [Automat ed code = 7266678861) message] The system which generated this result transmitted reference range : 0.0 - 10.0 /100 WBCs. The refer ence range was not u sed to interpret th is result as normal/abnormal . NRBC x10^3 (test code <0.01 See_Comment [Auto mated = [id number]) message] The s ystem which generated this result transmitted reference range : 10*3/?L. The reference range was not used to interpret this result as normal/abnormal . GRAN MAT (NEUT) % 70.8 % (test code = 770-8) IMM GRAN % (test code 0.30 % = 7059726035) LYMPH % (test code = 13.9 % 736-9) MONO % (test code = 10.9 % 5905-5) EOS % (test code = 3.7 % 713-8) BASO % (test code = 0.4 % 706-2) GRAN MAT x10^3(ANC) 6.76 10*3/uL 1.99-6.95 (test code = 1129783961) IMM GRAN x10^3 (test 0.03 10*3/uL 0-0.06 code = 5732675979) LYMPH x10^3 (test code 1.33 10*3/uL 1.09-3.23 = 731-0) MONO x10^3 (test code 1.04 10*3/uL 0.36-1.02 H = 742-7) EOS x10^3 (test code = 0.35 10*3/uL 0.06-0.53 711-2) BASO x10^3 (test code 0.04 10*3/uL 0.01-0.09 = 704-7) Lab Interpretation Abnormal (test code = 20319-5) [facility] GLUCOSE (AUTOMATED)2019-08-23 06:29:00 Test Item Value Reference Range Interpretation Comments POCT GLU (test code = 116 mg/dL 70-110 H Notifi ed Provider [id number]) Lab Interpretation (test Abnormal code = 01526-0) [facility] GLUCOSE (AUTOMATED)2019-08-23 01:54:00 Test Item Value Reference Range Interpretation Comments POCT GLU (test code = 135 mg/dL 70-110 H Notifi ed Provider [id number]) Lab Interpretation (test Abnormal code = 67247-9) [facility] GLUCOSE (AUTOMATED)2019-08-22 23:32:00 Test Item Value Reference Range Interpretation Comments POCT GLU (test code = 2657031116) 109 mg/dL 70-110 Lab Interpretation (test code = Normal 44133-8) [facility] by Britney [id number] 17:55:00 Test Item Value Reference Range Interpretation Comments MSSA Screen by Britney MTZ (test code Negative Negative = 65141-5) MRSA/MSSA Positive? (test code = No No [id number]) Lab Interpretation (test code = Normal 78833-0) [facility] GLUCOSE (AUTOMATED)2019-08-22 17:43:00 Test Item Value Reference Range Interpretation Comments POCT GLU (test code = 7696210130) 139 mg/dL 70-110 H Lab Interpretation (test code = Abnormal 76308-3) [facility] [id number] 16:53:00 Test Item Value Reference Range Interpretation Comments NT-proBNP (test code 08338 pg/mL See_Comment H [Autom ated = 8388806598) message] The system which generated this result transmitted reference range : <=125. The reference range was not used to interpret this result as normal/abnormal . JUAN LUIS (test code = JUAN LUIS) Biotin has been reported to cause a negative bias, interpret results relative to patient's use of biotin. Lab Interpretation Abnormal (test code = 05801-6) [facility] 1 [id number] 10:34:46Edema type pattern. CLINICAL HISTORY:SOB COMPARISON:None TECHNIQUE:Portable view of the chest performed at 08/22/2019 5:00 AM FINDINGS:There is diffuse interstitial thickening and indistinctness of thepulmonary vasculature, suggesting pulmonary edema. Cardiac silhouette isenlarged, which could represent cardiomegaly or large pericardial effusion Presumed calcified granuloma left midlung zone. No pneumothorax. Possiblesmall effusions. [facility], Radiant Results Inft User - 08/22/2019 4:35 AM CSTCLINICAL HISTORY:SOB COMPARISON:NoneTECHNIQUE:Portable view of the chest performed at 08/22/2019 5:00 AMFINDINGS:There is diffuse interstitial thickening and indistinctness of thepulmonary vasculature, suggesting pulmonary edema. Cardiac silhouette isenlarged, which could represent cardiomegaly or large pericardial effusionPresumed calcified granuloma leftmidlung zone. No pneumothorax. Possiblesmall effusions.IMPRESSIONEdema type pattern. [facility]ATED)2019-08-22 10:03:00 Test Item Value Reference Range Interpretation Comments POCT GLU (test code = 118 mg/dL 70-110 H Notifi ed Provider [id number]) Lab Interpretation (test Abnormal code = 25038-2) [facility] METABOLIC PANEL (NA, K, CL, CO2, GLUCOSE, BUN, CREATININE, CA)2019-08-22 08:20:00 Test Item Value Reference Range Interpretation Comments NA (test code = 136 mmol/L 135-145 8272401270) K (test code = 4.8 mmol/L 3.5-5 5255058380) CL (test code = 102 mmol/L 98-108 0582730989) CO2 TOTAL (test code = 30 mmol/L 23-31 8664449901) AGAP (test code = 2-16 7081918078) BUN (test code = 34 mg/dL 7-23 H 9611398380) GLUCOSE (test code = 67 mg/dL 70-110 L 7792138873) CREATININE (test code = 1.37 mg/dL 0.6-1.25 H 7424003828) CALCIUM (test code = 8.4 mg/dL 8.6-10.6 L 4719375713) eGFR Calculation mL/min/1.73m2 (Non-) (test code = 1784492450) eGFR Calculation mL/min/1.73m2 () (test code = 6929843184) JUAN LUIS (test code = JUAN LUIS) Association of Glomerular Filtration Rate (GFR) and Staging of Kidney Disease* + --+ --+ ------+| GFR (mL/min/1.73 m2) ?| With Kidney Damage ?| ?Without Kidney Damage+ --------+ --------+ +| ?>90 ?| ?Stage one ?| ? Normal ?+ ---+ ---+ -------+| ?60-89 ?| ?Stage two ?| ? Decreased GFR ? + --+ --+ ------+| ?30-59 ?| ?Stage three ?| ? Stage three ? + --+ --+ ------+| ?15-29 ?| ?Stage four ? | ? Stage four ?+ ---+ ---+ -------+| ?<15 (or dialysis) ? ?| ?Stage five ? | ? Stage five ?+ ---+ ---+ -------+ *Each stage assumes the associated GFR level has been in effect for at least three months. ?Stages 1 to 5, with or without kidney disease, indicate chronic kidney disease. Notes: Determination of stages one and two (with eGFR >59mL/min/1.73 m2) requires estimation of kidney damage for at least three months as defined by structural or functional abnormalities of the kidney, manifested by either:Pathological abnormalities or Markers of kidney damage (including abnormalities in the composition of the blood or urine or abnormalities in imaging tests). Lab Interpretation Abnormal (test code = 35149-8) [facility]2020-[facility] 08:20:00 Test Item Value Reference Range Interpretation Comments MAGNESIUM (test code = 9220785333) 2.0 mg/dL 1.7-2.4 Lab Interpretation (test code = Normal 91454-0) [facility] HospitalCB WITH [id number] 08:11:00 Test Item Value Reference Range Interpretation Comments WBC (test code = See_Comment [Automated 9690-2) message] The sy stem which generated this result transmitted reference range : 4.20 - 10.70 10*3/?L. The reference range was not used to interpret this result as normal/abnormal . RBC (test code = See_Comment L [Automated 789-8) message] The sy stem which generated this result transmitted reference range : 4.26 - 5.52 10*6/?L. The reference range was not used to interpret this result as normal/abnormal . HGB (test code = 8.3 g/dL 12.2-16.4 L 718-7) HCT (test code = 26.4 % 38.4-49.3 L 4544-3) MCV (test code = 65.7 fL 81.7-95.6 L 787-2) MCH (test code = 20.6 pg 26.1-32.7 L 785-6) MCHC (test code = 31.4 g/dL 31.2-35 786-4) RDW-SD (test code = 35.3 fL 38.5-51.6 L 83764-5) RDW-CV (test code = 15.1 % 12.1-15.4 788-0) PLT (test code = See_Comment [Automated 777-3) message] The sy stem which generated this result transmitted reference range : 150 - 328 10*3/ ?L. The reference r christine was not used to interpret this result as normal/abnormal . MPV (test code = 11.5 fL 9.8-13 06397-6) IPF % (test code = 4.2 % 1.2-10.7 Platelet count 6980894412) measured by fluorescence method. NRBC/100 WBC (test See_Comment [Automat ed code = 5490110818) message] The system which generated this result transmitted reference range : 0.0 - 10.0 /100 WBCs. The refer ence range was not u sed to interpret th is result as normal/abnormal . NRBC x10^3 (test code <0.01 See_Comment [Auto mated = 5465554414) message] The s ystem which generated this result transmitted reference range : 10*3/?L. The reference range was not used to interpret this result as normal/abnormal . GRAN MAT (NEUT) % 68.5 % (test code = 770-8) IMM GRAN % (test code 0.40 % = 6451640554) LYMPH % (test code = 18.7 % 736-9) MONO % (test code = 8.8 % 5905-5) EOS % (test code = 3.0 % 713-8) BASO % (test code = 0.6 % 706-2) GRAN MAT x10^3(ANC) 5.42 10*3/uL 1.99-6.95 (test code = 9547648864) IMM GRAN x10^3 (test 0.03 10*3/uL 0-0.06 code = 2223869433) LYMPH x10^3 (test code 1.48 10*3/uL 1.09-3.23 = 731-0) MONO x10^3 (test code 0.70 10*3/uL 0.36-1.02 = 742-7) EOS x10^3 (test code = 0.24 10*3/uL 0.06-0.53 711-2) BASO x10^3 (test code 0.05 10*3/uL 0.01-0.09 = 704-7) Lab Interpretation Abnormal (test code = 35638-9) [facility] GLUCOSE (AUTOMATED)2019-08-22 06:25:00 Test Item Value Reference Range Interpretation Comments POCT GLU (test code = 253 mg/dL 70-110 H Notifi ed Provider [id number]) Lab Interpretation (test Abnormal code = 50140-8) [facility] GLUCOSE (AUTOMATED)2019-08-22 03:19:00 Test Item Value Reference Range Interpretation Comments POCT GLU (test code = 279 mg/dL 70-110 H Notifi ed Provider [id number]) Lab Interpretation (test Abnormal code = 59456-1) [facility] GLUCOSE (AUTOMATED)2019-08-21 22:45:00 Test Item Value Reference Range Interpretation Comments POCT GLU (test code = 1856118974) 231 mg/dL 70-110 H Lab Interpretation (test code = Abnormal 77916-7) [facility] GLUCOSE (AUTOMATED)2019-08-21 18:32:00 Test Item Value Reference Range Interpretation Comments POCT GLU (test code = 4803209007) 144 mg/dL 70-110 H Lab Interpretation (test code = Abnormal 91411-4) [facility] GLUCOSE (AUTOMATED)2019-08-21 13:56:00 Test Item Value Reference Range Interpretation Comments POCT GLU (test code = 4295074822) 123 mg/dL 70-110 H Lab Interpretation (test code = Abnormal 36297-9) [facility] GLUCOSE (AUTOMATED)2019-08-21 10:04:00 Test Item Value Reference Range Interpretation Comments POCT GLU (test code = 111 mg/dL 70-110 H Notifi ed Provider [id number]) Lab Interpretation (test Abnormal code = 24641-6) [facility] [id number] 08:37:00 Test Item Value Reference Range Interpretation Comments NT-proBNP (test code 06379 pg/mL See_Comment H [Autom ated = 7595109566) message] The system which generated this result transmitted reference range : <=125. The reference range was not used to interpret this result as normal/abnormal . JUAN LUIS (test code = JUAN LUIS) Biotin has been reported to cause a negative bias, interpret results relative to patient's use of biotin. Lab Interpretation Abnormal (test code = 98981-2) [facility] (NA, K, CL, CO2, GLUCOSE, BUN, CREATININE, CA)2019-08-21 08:28:00 Test Item Value Reference Range Interpretation Comments NA (test code = 136 mmol/L 135-145 5870014775) K (test code = 5.0 mmol/L 3.5-5 5222605525) CL (test code = 102 mmol/L 98-108 5898044007) CO2 TOTAL (test code = 30 mmol/L 23-31 2265098884) AGAP (test code = 2-16 8128197330) BUN (test code = 37 mg/dL 7-23 H 9801641477) GLUCOSE (test code = 88 mg/dL 70-110 8371393202) CREATININE (test code = 1.44 mg/dL 0.6-1.25 H 5774554248) CALCIUM (test code = 8.2 mg/dL 8.6-10.6 L 5904608599) eGFR Calculation mL/min/1.73m2 (Non-) (test code = 8342562976) eGFR Calculation mL/min/1.73m2 () (test code = 8760587815) JUAN LUIS (test code = JUAN LUIS) Association of Glomerular Filtration Rate (GFR) and Staging of Kidney Disease* + --+ --+ ------+| GFR (mL/min/1.73 m2) ?| With Kidney Damage ?| ?Without Kidney Damage+ --------+ --------+ +| ?>90 ?| ?Stage one ?| ? Normal ?+ ---+ ---+ -------+| ?60-89 ?| ?Stage two ?| ? Decreased GFR ? + --+ --+ ------+| ?30-59 ?| ?Stage three ?| ? Stage three ? + --+ --+ ------+| ?15-29 ?| ?Stage four ? | ? Stage four ?+ ---+ ---+ -------+| ?<15 (or dialysis) ? ?| ?Stage five ? | ? Stage five ?+ ---+ ---+ -------+ *Each stage assumes the associated GFR level has been in effect for at least three months. ?Stages 1 to 5, with or without kidney disease, indicate chronic kidney disease. Notes: Determination of stages one and two (with eGFR >59mL/min/1.73 m2) requires estimation of kidney damage for at least three months as defined by structural or functional abnormalities of the kidney, manifested by either:Pathological abnormalities or Markers of kidney damage (including abnormalities in the composition of the blood or urine or abnormalities in imaging tests). Lab Interpretation Abnormal (test code = 09928-0) [facility] WITH [id number] 08:17:00 Test Item Value Reference Range Interpretation Comments WBC (test code = See_Comment [Automated 4104-2) message] The sy stem which generated this result transmitted reference range : 4.20 - 10.70 10*3/?L. The reference range was not used to interpret this result as normal/abnormal . RBC (test code = See_Comment [Automated 415-4) message] The sy stem which generated this result transmitted reference range : 4.26 - 5.52 10*6/?L. The reference range was not used to interpret this result as normal/abnormal . HGB (test code = 8.9 g/dL 12.2-16.4 L 718-7) HCT (test code = 28.0 % 38.4-49.3 L 4544-3) MCV (test code = 65.7 fL 81.7-95.6 L 787-2) MCH (test code = 20.9 pg 26.1-32.7 L 785-6) MCHC (test code = 31.8 g/dL 31.2-35 786-4) RDW-SD (test code = 35.3 fL 38.5-51.6 L 86580-1) RDW-CV (test code = 15.2 % 12.1-15.4 788-0) PLT (test code = See_Comment [Automated 777-3) message] The sy stem which generated this result transmitted reference range : 150 - 328 10*3/ ?L. The reference r christnie was not used to interpret this result as normal/abnormal . MPV (test code = 12.2 fL 9.8-13 34519-5) IPF % (test code = 4.9 % 1.2-10.7 Platelet count 5423226254) measured by fluorescence method. NRBC/100 WBC (test See_Comment [Automat ed code = 7993761995) message] The system which generated this result transmitted reference range : 0.0 - 10.0 /100 WBCs. The refer ence range was not u sed to interpret th is result as normal/abnormal . NRBC x10^3 (test code <0.01 See_Comment [Auto mated = 2291849371) message] The s ystem which generated this result transmitted reference range : 10*3/?L. The reference range was not used to interpret this result as normal/abnormal . GRAN MAT (NEUT) % 78.7 % (test code = 770-8) IMM GRAN % (test code 0.40 % = 4365709582) LYMPH % (test code = 11.4 % 736-9) MONO % (test code = 8.1 % 5905-5) EOS % (test code = 0.9 % 713-8) BASO % (test code = 0.5 % 706-2) GRAN MAT x10^3(ANC) 8.31 10*3/uL 1.99-6.95 H (test code = 1526565278) IMM GRAN x10^3 (test 0.04 10*3/uL 0-0.06 code = 7298348005) LYMPH x10^3 (test code 1.20 10*3/uL 1.09-3.23 = 731-0) MONO x10^3 (test code 0.85 10*3/uL 0.36-1.02 = 742-7) EOS x10^3 (test code = 0.09 10*3/uL 0.06-0.53 711-2) BASO x10^3 (test code 0.05 10*3/uL 0.01-0.09 = 704-7) Lab Interpretation Abnormal (test code = 46779-6) [facility] GLUCOSE (AUTOMATED)2019-08-21 05:13:00 Test Item Value Reference Range Interpretation Comments POCT GLU (test code = 9312786653) 87 mg/dL 70-110 Lab Interpretation (test code = Normal 92515-5) [facility] GLUCOSE (AUTOMATED)2019-08-21 03:29:00 Test Item Value Reference Range Interpretation Comments POCT GLU (test code = 65 mg/dL 70-110 L Notifi ed Provider [id number]) Lab Interpretation (test Abnormal code = 36914-3) [facility] GLUCOSE (AUTOMATED)2019-08-20 22:42:00 Test Item Value Reference Range Interpretation Comments POCT GLU (test code = 9728361194) 102 mg/dL 70-110 Lab Interpretation (test code = Normal 43430-5) [facility], [id number] 22:11:00 Test Item Value Reference Range Interpretation Comments VIT D 25OH (test code = <13 25-80 L 06155-8) JUAN LUIS (test code = JUAN LUIS) Deficiency: <20 ng/mLInsufficiency: 20-24 ng/mLOptimal: 25-80 ng/mL Lab Interpretation (test Abnormal code = 67658-3) [facility] GLUCOSE (AUTOMATED)2019-08-20 17:49:00 Test Item Value Reference Range Interpretation Comments POCT GLU (test code = 5736067176) 112 mg/dL 70-110 H Lab Interpretation (test code = Abnormal 75547-9) [facility] GLUCOSE (AUTOMATED)2019-08-20 14:23:00 Test Item Value Reference Range Interpretation Comments POCT GLU (test code = 3151275294) 122 mg/dL 70-110 H Lab Interpretation (test code = Abnormal 50418-7) [facility] [id number] 11:09:00 Test Item Value Reference Range Interpretation Comments TROPONIN I (test 0.032 ng/mL See_Comment [Automated code = 5052540076) message] The system which generated this result transmitted reference range : <=0.034. The reference range was not used to interpret this result as normal/abnormal . JUAN LUIS (test code = Equal or Less than JUAN LUIS) 0.034 ng/ml---Normal ?Note: Cardiac troponin begins to rise 3-4 hours after the onset of ischemia. Repeat in 4-6 hours if the sample was drawn within 3-4 hours of the onset of the symptom and found normal. Between 0.035 and 0.120 ng/mL--- Borderline. Questionable myocardial injury or necrosis ? ?Note: Serial measurement may be necessary to confirm or exclude the diagnosis of myocardial injury or necrosis; Clinical correlation (symptoms, EKGs, imaging studies, and others) required; Repeat in 4-6 hours if clinically indicated. ? Equal or Higher than 0.121 ng/mL---Abnormal. Myocardial Injury or Necrosis Likely ? Biotin has been reported to cause a negative bias, interpret results relative to patient's use of biotin. ? Lab Interpretation Normal (test code = 53730-6) [facility] [id number] 11:06:00 Test Item Value Reference Range Interpretation Comments NT-proBNP (test code 72045 pg/mL See_Comment H [Autom ated = 9821466831) message] The system which generated this result transmitted reference range : <=125. The reference range was not used to interpret this result as normal/abnormal . JUAN LUIS (test code = JUAN LUIS) Biotin has been reported to cause a negative bias, interpret results relative to patient's use of biotin. Lab Interpretation Abnormal (test code = 25023-6) [facility] HospitalURIC [id number] 10:58:00 Test Item Value Reference Range Interpretation Comments URIC ACID (test code = 3961368622) 5.7 mg/dL 3.6-8 Lab Interpretation (test code = Normal 49475-7) [facility] (NA, K, CL, CO2, GLUCOSE, BUN, CREATININE, CA)2019-08-20 10:58:00 Test Item Value Reference Range Interpretation Comments NA (test code = 136 mmol/L 135-145 2257848536) K (test code = 4.0 mmol/L 3.5-5 5757991082) CL (test code = 106 mmol/L 98-108 1783146922) CO2 TOTAL (test code = 27 mmol/L 23-31 0182786364) AGAP (test code = 2-16 1151530642) BUN (test code = 35 mg/dL 7-23 H 4083701794) GLUCOSE (test code = 149 mg/dL 70-110 H 8498062057) CREATININE (test code = 1.46 mg/dL 0.6-1.25 H 2906199010) CALCIUM (test code = 8.5 mg/dL 8.6-10.6 L 4722723048) eGFR Calculation mL/min/1.73m2 (Non-) (test code = 7605407720) eGFR Calculation mL/min/1.73m2 () (test code = 7763447796) JUAN LUIS (test code = JUAN LUIS) Association of Glomerular Filtration Rate (GFR) and Staging of Kidney Disease* + --+ --+ ------+| GFR (mL/min/1.73 m2) ?| With Kidney Damage ?| ?Without Kidney Damage+ --------+ --------+ +| ?>90 ?| ?Stage one ?| ? Normal ?+ ---+ ---+ -------+| ?60-89 ?| ?Stage two ?| ? Decreased GFR ? + --+ --+ ------+| ?30-59 ?| ?Stage three ?| ? Stage three ? + --+ --+ ------+| ?15-29 ?| ?Stage four ? | ? Stage four ?+ ---+ ---+ -------+| ?<15 (or dialysis) ? ?| ?Stage five ? | ? Stage five ?+ ---+ ---+ -------+ *Each stage assumes the associated GFR level has been in effect for at least three months. ?Stages 1 to 5, with or without kidney disease, indicate chronic kidney disease. Notes: Determination of stages one and two (with eGFR >59mL/min/1.73 m2) requires estimation of kidney damage for at least three months as defined by structural or functional abnormalities of the kidney, manifested by either:Pathological abnormalities or Markers of kidney damage (including abnormalities in the composition of the blood or urine or abnormalities in imaging tests). Lab Interpretation Abnormal (test code = 82116-7) [facility] WITH [id number] 10:46:00 Test Item Value Reference Range Interpretation Comments WBC (test code = See_Comment [Automated 0890-2) message] The sy stem which generated this result transmitted reference range : 4.20 - 10.70 10*3/?L. The reference range was not used to interpret this result as normal/abnormal . RBC (test code = See_Comment L [Automated 789-8) message] The sy stem which generated this result transmitted reference range : 4.26 - 5.52 10*6/?L. The reference range was not used to interpret this result as normal/abnormal . HGB (test code = 8.4 g/dL 12.2-16.4 L 718-7) HCT (test code = 26.9 % 38.4-49.3 L 4544-3) MCV (test code = 64.7 fL 81.7-95.6 L 787-2) MCH (test code = 20.2 pg 26.1-32.7 L 785-6) MCHC (test code = 31.2 g/dL 31.2-35 786-4) RDW-SD (test code = 34.4 fL 38.5-51.6 L 32997-4) RDW-CV (test code = 15.2 % 12.1-15.4 788-0) PLT (test code = See_Comment [Automated 777-3) message] The sy stem which generated this result transmitted reference range : 150 - 328 10*3/ ?L. The reference r christine was not used to interpret this result as normal/abnormal . MPV (test code = Not Measure d 59366-9) IPF % (test code = 6.1 % 1.2-10.7 Platelet count 0908066762) measured by fluorescence method. NRBC/100 WBC (test See_Comment [Automat ed code = 8150681018) message] The system which generated this result transmitted reference range : 0.0 - 10.0 /100 WBCs. The refer ence range was not u sed to interpret th is result as normal/abnormal . NRBC x10^3 (test code <0.01 See_Comment [Auto mated = 4201780228) message] The s ystem which generated this result transmitted reference range : 10*3/?L. The reference range was not used to interpret this result as normal/abnormal . GRAN MAT (NEUT) % 66.8 % (test code = 770-8) IMM GRAN % (test code 0.30 % = 3460933487) LYMPH % (test code = 20.3 % 736-9) MONO % (test code = 9.9 % 5905-5) EOS % (test code = 2.3 % 713-8) BASO % (test code = 0.4 % 706-2) GRAN MAT x10^3(ANC) 6.15 10*3/uL 1.99-6.95 (test code = 2500172536) IMM GRAN x10^3 (test 0.03 10*3/uL 0-0.06 code = 2971839037) LYMPH x10^3 (test code 1.87 10*3/uL 1.09-3.23 = 731-0) MONO x10^3 (test code 0.91 10*3/uL 0.36-1.02 = 742-7) EOS x10^3 (test code = 0.21 10*3/uL 0.06-0.53 711-2) BASO x10^3 (test code 0.04 10*3/uL 0.01-0.09 = 704-7) Lab Interpretation Abnormal (test code = 01422-4) [facility]12, [id number] 08:51:00 Test Item Value Reference Range Interpretation Comments VIT B12 (test code = 409 pg/mL 240-930 1629480834) JUAN LUIS (test code = JUAN LUIS) Biotin has been reported to cause a positive bias, interpret results relative to patient's use of biotin. Lab Interpretation (test Normal code = 54398-1) [facility] 08:51:00 Test Item Value Reference Range Interpretation Comments FOLATE SER (test code = 11.7 ng/mL 3-20 4413526709) Lab Interpretation (test code = Normal 58984-1) [facility] GLUCOSE (AUTOMATED)2019-08-20 05:51:00 Test Item Value Reference Range Interpretation Comments POCT GLU (test code = 2989306396) 239 mg/dL 70-110 H Lab Interpretation (test code = Abnormal 21485-4) [facility] GLUCOSE (AUTOMATED)2019-08-20 02:49:00 Test Item Value Reference Range Interpretation Comments POCT GLU (test code = 2414195011) 261 mg/dL 70-110 H Lab Interpretation (test code = Abnormal 20743-4) [facility] HospitalIRON [id number] 23:44:00 Test Item Value Reference Range Interpretation Comments IRON (test code = 64 ug/dL 50-160 Slight hem olysis 3235919470) TIBC (test code = 225 ug/dL 250-410 L 7885436015) % FE SAT (test code = 28 % 20-50 4396448102) Lab Interpretation (test Abnormal code = 82107-1) [facility] Hospital[facility]roponin [id number] 23:42:00 Test Item Value Reference Range Interpretation Comments TROPONIN I (test 0.039 ng/mL See_Comment H [Automated code = 8344029654) message] The system which generated this result transmitted reference range : <=0.034. The reference range was not used to interpret this result as normal/abnormal . JUAN LUIS (test code = Equal or Less than JUAN LUIS) 0.034 ng/ml---Normal ?Note: Cardiac troponin begins to rise 3-4 hours after the onset of ischemia. Repeat in 4-6 hours if the sample was drawn within 3-4 hours of the onset of the symptom and found normal. Between 0.035 and 0.120 ng/mL--- Borderline. Questionable myocardial injury or necrosis ? ?Note: Serial measurement may be necessary to confirm or exclude the diagnosis of myocardial injury or necrosis; Clinical correlation (symptoms, EKGs, imaging studies, and others) required; Repeat in 4-6 hours if clinically indicated. ? Equal or Higher than 0.121 ng/mL---Abnormal. Myocardial Injury or Necrosis Likely ? Biotin has been reported to cause a negative bias, interpret results relative to patient's use of biotin. ? Lab Interpretation Abnormal (test code = 54660-0) [facility] [id number] 23:37:00 Test Item Value Reference Range Interpretation Comments FERRITIN (test code = 744.0 ng/mL 18-464 H 2414247200) JUAN LUIS (test code = JUAN LUIS) Biotin has been reported to cause a negative bias, interpret results relative to patient's use of biotin. Lab Interpretation (test Abnormal code = 83486-1) [facility] GLUCOSE (AUTOMATED)2019-08-19 21:51:00 Test Item Value Reference Range Interpretation Comments POCT GLU (test code = 8691953213) 235 mg/dL 70-110 H Lab Interpretation (test code = Abnormal 39577-2) [facility] GLUCOSE (AUTOMATED)2019-08-19 17:19:00 Test Item Value Reference Range Interpretation Comments POCT GLU (test code = 6402361028) 283 mg/dL 70-110 H Lab Interpretation (test code = Abnormal 64364-1) [facility] GLUCOSE (AUTOMATED)2019-08-19 13:57:00 Test Item Value Reference Range Interpretation Comments POCT GLU (test code = 3993444339) 165 mg/dL 70-110 H Lab Interpretation (test code = Abnormal 27684-4) [facility] [id number] 11:05:00 Test Item Value Reference Range Interpretation Comments TROPONIN I (test 0.045 ng/mL See_Comment H [Automated code = 5751936044) message] The system which generated this result transmitted reference range : <=0.034. The reference range was not used to interpret this result as normal/abnormal . JUAN LUIS (test code = Equal or Less than JUAN LUIS) 0.034 ng/ml---Normal ?Note: Cardiac troponin begins to rise 3-4 hours after the onset of ischemia. Repeat in 4-6 hours if the sample was drawn within 3-4 hours of the onset of the symptom and found normal. Between 0.035 and 0.120 ng/mL--- Borderline. Questionable myocardial injury or necrosis ? ?Note: Serial measurement may be necessary to confirm or exclude the diagnosis of myocardial injury or necrosis; Clinical correlation (symptoms, EKGs, imaging studies, and others) required; Repeat in 4-6 hours if clinically indicated. ? Equal or Higher than 0.121 ng/mL---Abnormal. Myocardial Injury or Necrosis Likely ? Biotin has been reported to cause a negative bias, interpret results relative to patient's use of biotin. ? Lab Interpretation Abnormal (test code = 65805-7) [facility] [id number] 11:04:00 Test Item Value Reference Range Interpretation Comments TROPONIN I (test 0.046 ng/mL See_Comment H [Automated code = 4978099525) message] The system which generated this result transmitted reference range : <=0.034. The reference range was not used to interpret this result as normal/abnormal . JUAN LUIS (test code = Equal or Less than JUAN LUIS) 0.034 ng/ml---Normal ?Note: Cardiac troponin begins to rise 3-4 hours after the onset of ischemia. Repeat in 4-6 hours if the sample was drawn within 3-4 hours of the onset of the symptom and found normal. Between 0.035 and 0.120 ng/mL--- Borderline. Questionable myocardial injury or necrosis ? ?Note: Serial measurement may be necessary to confirm or exclude the diagnosis of myocardial injury or necrosis; Clinical correlation (symptoms, EKGs, imaging studies, and others) required; Repeat in 4-6 hours if clinically indicated. ? Equal or Higher than 0.121 ng/mL---Abnormal. Myocardial Injury or Necrosis Likely ? Biotin has been reported to cause a negative bias, interpret results relative to patient's use of biotin. ? Lab Interpretation Abnormal (test code = 55033-7) [facility] [id number] 11:02:00 Test Item Value Reference Range Interpretation Comments NT-proBNP (test code 92600 pg/mL See_Comment H [Autom ated = 9308506265) message] The system which generated this result transmitted reference range : <=125. The reference range was not used to interpret this result as normal/abnormal . JUAN LUIS (test code = JUAN LUIS) Biotin has been reported to cause a negative bias, interpret results relative to patient's use of biotin. Lab Interpretation Abnormal (test code = 89846-2) [facility] (NA, K, CL, CO2, GLUCOSE, BUN, CREATININE, CA)2019-08-19 11:00:00 Test Item Value Reference Range Interpretation Comments NA (test code = 138 mmol/L 135-145 0836537053) K (test code = 3.1 mmol/L 3.5-5 L 1506207959) CL (test code = 106 mmol/L 98-108 2961327632) CO2 TOTAL (test code = 26 mmol/L 23-31 5042424206) AGAP (test code = 2-16 2066147175) BUN (test code = 31 mg/dL 7-23 H 1989889801) GLUCOSE (test code = 61 mg/dL 70-110 L 0664589353) CREATININE (test code = 1.28 mg/dL 0.6-1.25 H 3652482573) CALCIUM (test code = 9.2 mg/dL 8.6-10.6 1689544894) eGFR Calculation mL/min/1.73m2 (Non-) (test code = 7044508556) eGFR Calculation mL/min/1.73m2 () (test code = 6871874790) JUAN LUIS (test code = JUAN LUIS) Association of Glomerular Filtration Rate (GFR) and Staging of Kidney Disease* + --+ --+ ------+| GFR (mL/min/1.73 m2) ?| With Kidney Damage ?| ?Without Kidney Damage+ --------+ --------+ +| ?>90 ?| ?Stage one ?| ? Normal ?+ ---+ ---+ -------+| ?60-89 ?| ?Stage two ?| ? Decreased GFR ? + --+ --+ ------+| ?30-59 ?| ?Stage three ?| ? Stage three ? + --+ --+ ------+| ?15-29 ?| ?Stage four ? | ? Stage four ?+ ---+ ---+ -------+| ?<15 (or dialysis) ? ?| ?Stage five ? | ? Stage five ?+ ---+ ---+ -------+ *Each stage assumes the associated GFR level has been in effect for at least three months. ?Stages 1 to 5, with or without kidney disease, indicate chronic kidney disease. Notes: Determination of stages one and two (with eGFR >59mL/min/1.73 m2) requires estimation of kidney damage for at least three months as defined by structural or functional abnormalities of the kidney, manifested by either:Pathological abnormalities or Markers of kidney damage (including abnormalities in the composition of the blood or urine or abnormalities in imaging tests). Lab Interpretation Abnormal (test code = 63913-2) [facility]UR[facility] [id number] 10:53:00 Test Item Value Reference Range Interpretation Comments URIC ACID (test code = 3472729961) 5.3 mg/dL 3.6-8 Lab Interpretation (test code = Normal 49988-9) [facility]2020-02-05 10:53:00 Test Item Value Reference Range Interpretation Comments MAGNESIUM (test code = 6005967998) 2.3 mg/dL 1.7-2.4 Lab Interpretation (test code = Normal 81577-4) [facility]PHOSPHORUS2020-02-05 10:53:00 Test Item Value Reference Range Interpretation Comments PHOSPHORUS (test code = 5352726853) 3.3 mg/dL 2.5-5 Lab Interpretation (test code = Normal 89236-9) [facility]CB WITH [id number] 10:30:00 Test Item Value Reference Range Interpretation Comments WBC (test code = See_Comment H [Automated 3790-2) message] The sy stem which generated this result transmitted reference range : 4.20 - 10.70 10*3/?L. The reference range was not used to interpret this result as normal/abnormal . RBC (test code = See_Comment [Automated 789-8) message] The sy stem which generated this result transmitted reference range : 4.26 - 5.52 10*6/?L. The reference range was not used to interpret this result as normal/abnormal . HGB (test code = 10.2 g/dL 12.2-16.4 L 718-7) HCT (test code = 32.7 % 38.4-49.3 L 4544-3) MCV (test code = 65.5 fL 81.7-95.6 L 787-2) MCH (test code = 20.4 pg 26.1-32.7 L 785-6) MCHC (test code = 31.2 g/dL 31.2-35 786-4) RDW-SD (test code = 34.7 fL 38.5-51.6 L 22729-4) RDW-CV (test code = 15.2 % 12.1-15.4 788-0) PLT (test code = See_Comment [Automated 777-3) message] The sy stem which generated this result transmitted reference range : 150 - 328 10*3/ ?L. The reference r christine was not used to interpret this result as normal/abnormal . MPV (test code = Not Measure d 87119-8) IPF % (test code = 6.8 % 1.2-10.7 Platelet count 4118274232) measured by fluorescence method. NRBC/100 WBC (test See_Comment [Automat ed code = 4113611430) message] The system which generated this result transmitted reference range : 0.0 - 10.0 /100 WBCs. The refer ence range was not u sed to interpret th is result as normal/abnormal . NRBC x10^3 (test code <0.01 See_Comment [Auto mated = 4785906331) message] The s ystem which generated this result transmitted reference range : 10*3/?L. The reference range was not used to interpret this result as normal/abnormal . GRAN MAT (NEUT) % 60.5 % (test code = 770-8) IMM GRAN % (test code 0.30 % = 3039338135) LYMPH % (test code = 26.2 % 736-9) MONO % (test code = 9.8 % 5905-5) EOS % (test code = 2.6 % 713-8) BASO % (test code = 0.6 % 706-2) GRAN MAT x10^3(ANC) 6.61 10*3/uL 1.99-6.95 (test code = 5984689113) IMM GRAN x10^3 (test 0.03 10*3/uL 0-0.06 code = 0792869420) LYMPH x10^3 (test code 2.86 10*3/uL 1.09-3.23 = 731-0) MONO x10^3 (test code 1.07 10*3/uL 0.36-1.02 H = 742-7) EOS x10^3 (test code = 0.28 10*3/uL 0.06-0.53 711-2) BASO x10^3 (test code 0.07 10*3/uL 0.01-0.09 = 704-7) Lab Interpretation Abnormal (test code = 68354-7) [facility] GLUCOSE (AUTOMATED)2019-08-19 10:02:00 Test Item Value Reference Range Interpretation Comments POCT GLU (test code = 1278463637) 81 mg/dL 70-110 Lab Interpretation (test code = Normal 71285-5) [facility] GLUCOSE (AUTOMATED)2019-08-19 04:46:00 Test Item Value Reference Range Interpretation Comments POCT GLU (test code = 9579642841) 325 mg/dL 70-110 H Lab Interpretation (test code = Abnormal 41246-9) [facility] [id number] 04:45:00 Test Item Value Reference Range Interpretation Comments URIC ACID (test code = 1347119666) 5.2 mg/dL 3.6-8 Lab Interpretation (test code = Normal 62679-6) [facility] HospitalTroponin [id number] 04:08:00 Test Item Value Reference Range Interpretation Comments TROPONIN I (test 0.026 ng/mL See_Comment [Automated code = 4246844699) message] The system which generated this result transmitted reference range : <=0.034. The reference range was not used to interpret this result as normal/abnormal . JUAN LUIS (test code = Equal or Less than JUAN LUIS) 0.034 ng/ml---Normal ?Note: Cardiac troponin begins to rise 3-4 hours after the onset of ischemia. Repeat in 4-6 hours if the sample was drawn within 3-4 hours of the onset of the symptom and found normal. Between 0.035 and 0.120 ng/mL--- Borderline. Questionable myocardial injury or necrosis ? ?Note: Serial measurement may be necessary to confirm or exclude the diagnosis of myocardial injury or necrosis; Clinical correlation (symptoms, EKGs, imaging studies, and others) required; Repeat in 4-6 hours if clinically indicated. ? Equal or Higher than 0.121 ng/mL---Abnormal. Myocardial Injury or Necrosis Likely ? Biotin has been reported to cause a negative bias, interpret results relative to patient's use of biotin. ? Lab Interpretation Normal (test code = 73053-0) [facility] Hospital[facility] (Total Cholesterol, Triglycerides, HDL)2019-08-19 03:55:00 Test Item Value Reference Range Interpretation Comments CHOL (test code = 196 mg/dL 120-200 4806032225) HDL (test code = 36 mg/dL >40 L 5070151313) HDLC RATIO (test code = See_Comment H [Au tomated message] 5383279003) The system [employer] generated this result transmit tennille reference range : <=5.0. The refe rence range was not u sed to interpret th is result as normal/abnormal . TRIG (test code = 131 mg/dL 30-170 1518946625) LDL CHOL (test code = 134 mg/dL See_Comment [Auto mated message] 06270-7) The system [employer] generated this result transmit tennille reference range : <=160. The refe rence range was not u sed to interpret th is result as normal/abnormal . VLDL (test code = 26 mg/dL 5-60 3002333517) Lab Interpretation (test Abnormal code = 92893-0) [facility]2019-08-19 01:40:00 Test Item Value Reference Range Interpretation Comments POCT GLU (test code = 0757117520) 381 mg/dL 70-110 H Lab Interpretation (test code = Abnormal 52600-7) [facility] HospitalThyroid Stimulating Hormone (TSH)2019-08-19 00:12:00 Test Item Value Reference Range Interpretation Comments TSH (test code = See_Comment Biotin has been 0531975669) reported to cau se a negative bias, interpret resul ts relative to pat taryn's use of biotin. [Automated mess age] The system [employer] generated this result transmitted ref erence range: 0.45 - 4 .70 mIU/L. The refe rence range was not u sed to interpret this result as normal/abnor mal. Lab Interpretation (test Normal code = 98082-8) [facility] HospitalGlycosylated Hemoglobin (A1C)2019-08-19 00:11:00 Test Item Value Reference Interpretation Comments Range HGB A1C (test code = See_Comment H [Autom ated 4548-4) message] The system which generated this result transmitted reference range : 4.0 - 6.0 % NGSP. The reference range was not used to interpret this result as normal/abnormal . JUAN LUIS (test code = %A1C (NGSP) JUAN LUIS) Interpretation (ADA)4.8-5.6 ? ? Normal or (Non-Diabetic Range)5.7-6.4 ? ? Increased Risk (Pre-Diabetic)>6.5 ?Diabetes Indicated Lab Interpretation Abnormal (test code = 17535-7) [facility] (Total Cholesterol, Triglycerides, HDL) - [id number] 23:40:00 Test Item Value Reference Range Interpretation Comments CHOL (test code = 199 mg/dL 120-200 6810804512) HDL (test code = 36 mg/dL >40 L 2214168526) HDLC RATIO (test code = See_Comment H [Au tomated message] 3895166306) The system [employer] generated this result transmit tennille reference range : <=5.0. The refe rence range was not u sed to interpret th is result as normal/abnormal . TRIG (test code = 146 mg/dL 30-170 2600830615) LDL CHOL (test code = 134 mg/dL See_Comment [Auto mated message] 29264-9) The system [employer] h generated this result transmit tennille reference range : <=160. The refe rence range was not u sed to interpret th is result as normal/abnormal . VLDL (test code = 29 mg/dL 5-60 4826986375) Lab Interpretation (test Abnormal code = 60706-0) [facility]2019-08-18 23:33:00 Test Item Value Reference Range Interpretation Comments POCT GLU (test code = 0924477679) 424 mg/dL 70-110 H Lab Interpretation (test code = Abnormal 31612-0) [facility]AL [id number] 21:57:00 Test Item Value Reference Range Interpretation Comments NT-proBNP (test code 32461 pg/mL See_Comment H [Autom ated = 7979577166) message] The system which generated this result transmitted reference range : <=125. The reference range was not used to interpret this result as normal/abnormal . JUAN LUIS (test code = JUAN LUIS) Biotin has been reported to cause a negative bias, interpret results relative to patient's use of biotin. Lab Interpretation Abnormal (test code = 66144-2) [facility] HospitalaPTT2020-02-04 21:26:00 Test Item Value Reference Range Interpretation Comments APTT Patient (test See_Comment [Automat ed code = 3173-2) message] The system which generated this result transmitted reference range : 23 - 38 Seconds . The reference range was not used to interpr et this result as normal/abnormal . JUAN LUIS (test code = JUAN LUIS) The [facility] patient population mean normal value for aPTT is 30 seconds. Lab Interpretation Normal (test code = 76803-8) [facility] HospitalPROTHROMBIN TIME / [id number] 21:24:00 Test Item Value Reference Range Interpretation Comments PROTIME PATIENT (test See_Comment [Auto mated message] code = 5964-2) The system ich generated this result transmitted ref erence range: 12.0 - 1 4.7 Seconds. The re ference range was not u sed to interpret this result as normal/abnor mal. INR (test code = 6301-6) Nor mal INR <1.1; Warfarin Therap eutic range 2.0 to 3. 0 or 2.5 to 3.5, dep ending upon the indica tions. Lab Interpretation (test Normal code = 10793-2) [facility] HospitalLESLIEN [id number] 21:14:00 Test Item Value Reference Range Interpretation Comments TROPONIN I (test 0.023 ng/mL See_Comment [Automated code = 9156013048) message] The system which generated this result transmitted reference range : <=0.034. The reference range was not used to interpret this result as normal/abnormal . JUAN LUIS (test code = Equal or Less than JUAN LUIS) 0.034 ng/ml---Normal ?Note: Cardiac troponin begins to rise 3-4 hours after the onset of ischemia. Repeat in 4-6 hours if the sample was drawn within 3-4 hours of the onset of the symptom and found normal. Between 0.035 and 0.120 ng/mL--- Borderline. Questionable myocardial injury or necrosis ? ?Note: Serial measurement may be necessary to confirm or exclude the diagnosis of myocardial injury or necrosis; Clinical correlation (symptoms, EKGs, imaging studies, and others) required; Repeat in 4-6 hours if clinically indicated. ? Equal or Higher than 0.121 ng/mL---Abnormal. Myocardial Injury or Necrosis Likely ? Biotin has been reported to cause a negative bias, interpret results relative to patient's use of biotin. ? Lab Interpretation Normal (test code = 35511-7) [facility] 2 [id number] 21:02:07HISTORY: ?Chest pain. TECHNIQUE: PA and lateral views of the chest are obtained. Comparison ismade with 10/15/2017 study. FINDINGS: Mild cardiomegaly noted with mild bilateral pulmonary edema,congestion/atelectatic changes in the lower lungs with small bilateralpleural effusion. [facility], Radiant Results Inft User - 08/18/2019 3:03 PM CSTHISTORY: Chest pain.TECHNIQUE: PA and lateral views of the chest are obtained. Comparison ismade with 10/15/2017 study.FINDINGS: Mild cardiomegaly noted with mild bilateral pulmonary edema,congestion/atelectatic changes in the lower lungs with small bilateralpleural effusion.[facility] HospitalCOMP. METABOLIC PANEL (21460)2019-08-18 21:02:00 Test Item Value Reference Range Interpretation Comments NA (test code = 134 mmol/L 135-145 L 9038472797) K (test code = 3.8 mmol/L 3.5-5 1285922489) CL (test code = 103 mmol/L 98-108 5990735552) CO2 TOTAL (test code = 25 mmol/L 23-31 1665064732) AGAP (test code = 2-16 1455322437) BUN (test code = 29 mg/dL 7-23 H 9459106954) GLUCOSE (test code = 384 mg/dL 70-110 H 3758148491) CREATININE (test code = 1.14 mg/dL 0.6-1.25 7015634522) TOTAL BILI (test code = 0.3 mg/dL 0.1-1.2 9169006268) CALCIUM (test code = 8.7 mg/dL 8.6-10.6 3881324856) T PROTEIN (test code = 6.1 g/dL 6.3-8.2 L 8118479683) ALBUMIN (test code = 3.3 g/dL 3.5-5 L 4579876595) ALK PHOS (test code = 84 U/L 34-122 1435691917) ALTv (test code = 11 U/L 5-50 1742-6) AST(SGOT) (test code = 18 U/L 13-40 1008506324) eGFR Calculation mL/min/1.73m2 (Non-) (test code = 7274257724) eGFR Calculation mL/min/1.73m2 () (test code = 7566491529) JUAN LUIS (test code = JUAN LUIS) Association of Glomerular Filtration Rate (GFR) and Staging of Kidney Disease* + --+ --+ ------+| GFR (mL/min/1.73 m2) ?| With Kidney Damage ?| ?Without Kidney Damage+ --------+ --------+ +| ?>90 ?| ?Stage one ?| ? Normal ?+ ---+ ---+ -------+| ?60-89 ?| ?Stage two ?| ? Decreased GFR ? + --+ --+ ------+| ?30-59 ?| ?Stage three ?| ? Stage three ? + --+ --+ ------+| ?15-29 ?| ?Stage four ? | ? Stage four ?+ ---+ ---+ -------+| ?<15 (or dialysis) ? ?| ?Stage five ? | ? Stage five ?+ ---+ ---+ -------+ *Each stage assumes the associated GFR level has been in effect for at least three months. ?Stages 1 to 5, with or without kidney disease, indicate chronic kidney disease. Notes: Determination of stages one and two (with eGFR >59mL/min/1.73 m2) requires estimation of kidney damage for at least three months as defined by structural or functional abnormalities of the kidney, manifested by either:Pathological abnormalities or Markers of kidney damage (including abnormalities in the composition of the blood or urine or abnormalities in imaging tests). Lab Interpretation Abnormal (test code = 96556-2) [facility] HospitalLIPASE, [id number] 21:02:00 Test Item Value Reference Range Interpretation Comments LIPASE (test code = 4224194604) 82 U/L 0-220 Lab Interpretation (test code = Normal 61175-8) [facility]CB WITH [id number] 21:00:00 Test Item Value Reference Range Interpretation Comments WBC (test code = See_Comment [Automated 7516-2) message] The sy stem which generated this result transmitted reference range : 4.20 - 10.70 10*3/?L. The reference range was not used to interpret this result as normal/abnormal . RBC (test code = See_Comment [Automated 700-8) message] The sy stem which generated this result transmitted reference range : 4.26 - 5.52 10*6/?L. The reference range was not used to interpret this result as normal/abnormal . HGB (test code = 10.2 g/dL 12.2-16.4 L 718-7) HCT (test code = 33.4 % 38.4-49.3 L 4544-3) MCV (test code = 65.6 fL 81.7-95.6 L 787-2) MCH (test code = 20.0 pg 26.1-32.7 L 785-6) MCHC (test code = 30.5 g/dL 31.2-35 L 786-4) RDW-SD (test code = 35.4 fL 38.5-51.6 L 48863-6) RDW-CV (test code = 15.3 % 12.1-15.4 788-0) PLT (test code = See_Comment [Automated 777-3) message] The sy stem which generated this result transmitted reference range : 150 - 328 10*3/ ?L. The reference r christine was not used to interpret this result as normal/abnormal . MPV (test code = Not Measure d 56153-3) NRBC/100 WBC (test See_Comment [Automat ed code = 0453935818) message] The system which generated this result transmitted reference range : 0.0 - 10.0 /100 WBCs. The refer ence range was not u sed to interpret th is result as normal/abnormal . NRBC x10^3 (test code <0.01 See_Comment [Auto mated = 1426961592) message] The s ystem which generated this result transmitted reference range : 10*3/?L. The reference range was not used to interpret this result as normal/abnormal . GRAN MAT (NEUT) % 72.4 % (test code = 770-8) IMM GRAN % (test code 0.40 % = 4622799605) LYMPH % (test code = 16.5 % 736-9) MONO % (test code = 7.6 % 5905-5) EOS % (test code = 2.6 % 713-8) BASO % (test code = 0.5 % 706-2) GRAN MAT x10^3(ANC) 6.03 10*3/uL 1.99-6.95 (test code = 0910655528) IMM GRAN x10^3 (test 0.03 10*3/uL 0-0.06 code = 7027449684) LYMPH x10^3 (test code 1.37 10*3/uL 1.09-3.23 = 731-0) MONO x10^3 (test code 0.63 10*3/uL 0.36-1.02 = 742-7) EOS x10^3 (test code = 0.22 10*3/uL 0.06-0.53 711-2) BASO x10^3 (test code 0.04 10*3/uL 0.01-0.09 = 704-7) Lab Interpretation Abnormal (test code = 94639-0) [facility]"
[2021-06-01 11:29] LABS: Absolute Lymphocytes (CBC) 0.8 K/uL (0.7-4.9); Basophils % 0.9 % (0-1.3); MPV 9.9 fL (7.6-11.3); RBC Red Blood Cell Count 3.44 M/uL (4.33-5.43)
[2021-06-01 11:34] LABS: Protime INR 1.09
--- NOTE | 2021-06-01 11:59 | RAD REPORT ---
EXAM DESCRIPTION: RAD - Chest Single View - 06/01/2021 11:53 am CLINICAL HISTORY: CHEST PAIN Chest pain. COMPARISON: Chest Single View dated 04/12/2021; Chest Single View dated 04/10/2021; Chest Single View dated 04/09/2021; Chest Single View dated 04/02/2021 FINDINGS: Portable technique limits examination quality. Mild pulmonary edema is seen. The heart is moderately enlarged in size. No displaced fractures.Sterno seema wires are noted. IMPRESSION: Mild CHF.
[2021-06-01 12:47] LABS: Albumin 2.5 g/dL (3.4-5.0); Bilirubin Direct 0.2 mg/dL (0-0.2); Bilirubin Total 0.3 mg/dL (0.2-1.0); Magnesium 2.4 mg/dL (1.8-2.4); Potassium 3.6 mmol/L (3.5-5.1); Protein, Total 6.4 g/dL (6.4-8.2); Troponin (Emerg Dept Use Only) 0.03 ng/mL (0.0-0.045)
[2021-06-01 13:08] LABS: Urine Blood 1+ (Negative); Urine Glucose Negative (Negative); Urine Protein 3+ (Negative); Urine pH 5.5 (5.0-7.0)
[2021-06-01 13:22] LABS: Urine Bacteria <20 /HPF (NONE SEEN); Urine RBC <5 /HPF (NONE SEEN); Urine Yeast MANY (NONE SEEN)
--- NOTE | 2021-06-01 13:27 | EDPHYS ---
Physician Documentation [facility] Name: Mumtaz Anderson Age: 66 yrs Sex: Male : 1955 Arrival Date: 06/01/2021 Time: 10:36 Bed 7 Private MD: ED Physician Jax Lopes HPI: 06/01 11:52 This 66 yrs old Male presents to ER via EMS with complaints of Chest Pain, Weakness, jr8 low H/H. 11:52 This is a 66-year-old male patient that presented to emergency room after being called jr8 by his primary care physician for low hemoglobin. Patient stated that he is been having chronic anemia issues and is being worked up by a pharmaceutical representative. Has had to have transfusions in the past. Has been more weak and fatigued lately. This morning started to have chest tightness as well that is intermittent in nature.. Historical: - Allergies: 11: spironolactone; jl7 11: Latex, Natural Rubber; 11:01 anextuss; jl7 - Home Meds: 11:01 Norvasc 10 mg oral tab once daily [Active]; aspirin 81 mg Oral chew once daily jl7 [Active]; atorvastatin 80 mg Oral tab 1 tab once daily [Active]; Carafate 100 mg/mL oral susp 4 times per day [Active]; clopidogrel 75 mg Oral tab 1 tab once daily [Active]; doxazosin 2 mg oral tab once daily [Active]; escitalopram oxalate 20 mg Oral tab 2 tab once daily [Active]; ferrous sulfate 325 mg (65 mg iron) Oral tab three times a day [Active]; Lasix 40 mg Oral tab 1 tab 2 times per day [Active]; gabapentin 300 mg oral cap BID [Active]; Novolin 70/30 [place]let Sub-Q [Active]; metoprolol tartrate 100 mg oral tab 2 times per day [Active]; trazodone 150 mg oral tab [Active]; tramadol 50 mg Oral tab [Active]; tamsulosin 0.4 mg oral cap 1 cap [Active]; Albuterol Inhl [Active]; - PMHx: 11:01 Anemia; Diabetes - IDDM; CAD; Hypertension; Hypercholesterolemia; COPD; Kidney disease; jl7 Seizures; Cerebrovascular accident; CHF; Myocardial infarction; Parkinsons; Pneumonia; - PSHx: 11:01 Coronary artery bypass graft; hip; PEG tube; knee; jl7 - Immunization history:: Adult Immunizations up to date, Client reports receiving the 1st dose of the Covid vaccine. - Social history:: Smoking status: Patient/guardian denies using tobacco. ROS: 11:52 Eyes: Negative for injury, pain, redness, and discharge, ENT: Negative for injury, jr8 pain, and discharge, Neck: Negative for injury, pain, and swelling, Respiratory: Negative for shortness of breath, cough, wheezing, and pleuritic chest pain, Abdomen/GI: Negative for abdominal pain, nausea, vomiting, diarrhea, and constipation, Back: Negative for injury and pain, MS/Extremity: Negative for injury and deformity, Skin: Negative for injury, rash, and discoloration, Neuro: Negative for headache, weakness, numbness, tingling, and seizure. 11:52 Constitutional: Positive for fatigue, malaise. 11:52 Cardiovascular: Positive for chest pain. Exam: 11:52 Eyes: Pupils equal round and reactive to light, extra-ocular motions intact. Lids and jr8 lashes normal. Conjunctiva and sclera are non-icteric and not injected. Cornea within normal limits. Periorbital areas with no swelling, redness, or edema. Neck: Trachea midline, no thyromegaly or masses palpated, and no cervical lymphadenopathy. Supple, full range of motion without nuchal rigidity, or vertebral point tenderness. No Meningismus. Cardiovascular: Bradycardic with a normal S1 and S2. No gallops, murmurs, or rubs. Normal PMI, no JVD. No pulse deficits. Respiratory: Lungs have equal breath sounds bilaterally, clear to auscultation and percussion. No rales, rhonchi or wheezes noted. No increased work of breathing, no retractions or nasal flaring. Abdomen/GI: Soft, non-tender, with normal bowel sounds. No distension or tympany. No guarding or rebound. No evidence of tenderness throughout. 11:52 MS/ Extremity: Pulses equal, no cyanosis. Neurovascular intact. Full, normal range of motion. Neuro: Awake and alert, GCS 15, oriented to person, place, time, and situation. Cranial nerves II-XII grossly intact. Motor strength 5/5 in all extremities. Sensory grossly intact. 11:52 Skin: Appearance: Color: pale, Temperature: normal temperature, Moisture: normal moisture. Vital Signs: 10:58 BP 136 / 59; Pulse 60; Resp 14; Temp 99.1; Pulse Ox 100% ; Weight 64.86 kg; Height 6 ll3 ft. 0 in. (182.88 cm); 11:13 BP 126 / 58; Pulse 58; Resp 16; Pulse Ox 100% ; ll3 12:15 BP 134 / 59; Pulse 58; Resp 16; Pulse Ox 99% ; ll3 13:30 BP 143 / 62; Pulse 59; Resp 17; Pulse Ox 99% ; ll3 14:00 BP 134 / 62; Pulse 59; Resp 12; Pulse Ox 99% ; ll3 14:40 BP 143 / 65; Pulse 58; Resp 14; Pulse Ox 99% ; ll3 10:58 Body Mass Index 19.39 (64.86 kg, 182.88 cm) ll3 MDM: 10:38 Patient medically screened. [facility] 13:25 Data reviewed: vital signs, nurses notes, lab test result(s), EKG, radiologic studies, jr8 plain films. Data interpreted: Pulse oximetry: on room air is 99 %. Interpretation: normal. Counseling: I had a detailed discussion with the patient and/or guardian regarding: the historical points, exam findings, and any diagnostic results supporting the discharge/admit diagnosis, lab results, radiology results, the need for outpatient follow up, a family practitioner, to return to the emergency department if symptoms worsen or persist or if there are any questions or concerns that arise at home. ED course: Patient's labs similar to that that we have recently seen him in the past. No bacteriuria noted. Hemoglobin at 7.8. No active bleeding therefore no need for further transfusion. This was discussed with his internal medicine physician who agreed. We will send him home for further monitoring and evaluation with his PCP.. 06/01 10:45 Order name: Basic Metabolic Panel [facility] 06/01 10:45 Order name: CBC with Diff [facility] 06/01 10:45 Order name: LFT's; Complete Time: 12:49 [facility] 06/01 10:45 Order name: Magnesium; Complete Time: 12:49 [facility] 06/01 10:45 Order name: NT PRO-BNP; Complete Time: 12:49 [facility] 06/01 10:45 Order name: PT-INR; Complete Time: 11:35 [facility] 06/01 10:45 Order name: Troponin (emerg Dept Use Only); Complete Time: 12:49 8 06/01 10:45 Order name: Urine Microscopic Only; Complete Time: 13:25 [facility] 06/01 10:45 Order name: Basic Metabolic Panel; Complete Time: 12:49 [facility] 06/01 10:45 Order name: CBC with Automated Diff [facility] 06/01 12:36 Order name: Type and Screen; Complete Time: 13:28 ED[facility] 06/01 13:08 Order name: Urine Dipstick-Ancillary; Complete Time: 13:10 [facility] 06/01 13:23 Order name: Urine Culture [facility] 06/01 10:45 Order name: XRAY Chest (1 view); Complete Time: 12:01 [facility] 06/01 10:45 Order name: EKG; Complete Time: 10:46 [facility] 06/01 10:45 Order name: Cardiac monitoring; Complete Time: 10:45 [facility] 06/01 10:45 Order name: EKG - Nurse/Tech; Complete Time: 11:22 [facility] 06/01 10:45 Order name: IV Saline Lock; Complete Time: 11:22 [facility] 06/01 10:45 Order name: Labs collected and sent; Complete Time: 11:22 [facility] 06/01 10:45 Order name: O2 Per Protocol; Complete Time: 10:45 [facility] 06/01 10:45 Order name: O2 Sat Monitoring; Complete Time: 10:45 [facility] 06/01 10:45 Order name: Urine Dipstick-Ancillary (obtain specimen); Complete Time: 13:08 [facility] 06/01 11:37 Order name: Labs - recollect needed: BASIC hemolyzed, please recollect; Complete Time: em1 12:28 Administered Medications: No medications were administered Disposition: 17:25 Co-signature as Attending Physician, Jax Lopes MD I agree with the assessment and kdr plan of care. Disposition Summary: 06/01/21 13:27 Discharge Ordered Location: Home jr Problem: new jr8 Symptoms: have improved jr8 Condition: Stable jr8 Diagnosis - Anemia in chronic kidney disease jr8 - Chronic kidney disease, stage 3 (moderate) jr8 Followup: jr8 - With: Antonio Tobias MD - When: 2 - 3 days - Reason: Recheck today's complaints, Continuance of care, Re-evaluation by your physician Discharge Instructions: - Discharge Summary Sheet jr8 - Anemia jr8 - Blood Transfusion, Adult jr8 - Chronic Kidney Disease, Adult jr8 Forms: - Medication Reconciliation Form jr8 - Thank You Letter jr8 - Antibiotic Education jr8 - Prescription Opioid Use jr8 Signatures: Dispatcher [employer] EDMS Jax Lopes MD MD kdr Martinez, Eric em1 Barron Stover PA PA jr8 Nuzhat العلي RN RN jl7 Cari Prajapati RN RN ll3 Corrections: (The following items were deleted from the chart) 12:35 10:46 TYPE AND SCREEN+[id number] ordered. EDNY EDMS
--- NOTE | 2021-06-01 13:27 | ER ---
Nurse's Notes [facility] Name: Mumtaz Anderson Age: 66 yrs Sex: Male : 1955 Arrival Date: 06/01/2021 Time: 10:36 Bed 7 Private MD: Diagnosis: Anemia in chronic kidney disease;Chronic kidney disease, stage 3 (moderate) Presentation: 06/01 10:58 Chief complaint: EMS states: Toned out for, chest pain, difficulty urinating, and ll3 hallucinations. Pt currently denies any Chest pain and any hallucinations, reports super pubic pressure with urination. Coronavirus screen: Vaccine status: Patient reports receiving the 1st dose of the Covid vaccine. Client denies travel out of the [place] in the last 14 days. At this time, the client does not indicate any symptoms associated with coronavirus-19. Ebola Screen: No symptoms or risks identified at this time. Initial Sepsis Screen: Does the patient meet any 2 criteria? No. Patient's initial sepsis screen is negative. Does the patient have a suspected source of infection? No. Patient's initial sepsis screen is negative. Risk Assessment: Do you want to hurt yourself or someone else? Patient reports no desire to harm self or others. Onset of symptoms was May 29, 2021. Care prior to arrival: None. Transition of care: patient was not received from another setting of care. 10:58 Method Of Arrival: EMS: [facility] ll3 10:58 Acuity: VIDAL 2 ll3 Triage Assessment: 10:58 General: Appears in no apparent distress. uncomfortable, Behavior is calm, cooperative. ll3 Pain: Denies pain. Neuro: Level of Consciousness is awake, alert, obeys commands, Speech is normal, Facial symmetry appears normal. Cardiovascular: Patient's skin is warm and dry. Chest pain is denied. Respiratory: Airway is patent Trachea midline Respiratory effort is even, unlabored, Respiratory pattern is regular, symmetrical. GI: PEG tube in place, clamped. : Holcomb in place to gravity drainage Urine is clear, Reports pressure. Derm: Skin is pink, warm \T\ dry. Historical: - Allergies: 11: spironolactone; jl7 11:01 Latex, Natural Rubber; jl 11: anextuss; jl7 - Home Meds: 11:01 Norvasc 10 mg oral tab once daily [Active]; aspirin 81 mg Oral chew once daily jl7 [Active]; atorvastatin 80 mg Oral tab 1 tab once daily [Active]; Carafate 100 mg/mL oral susp 4 times per day [Active]; clopidogrel 75 mg Oral tab 1 tab once daily [Active]; doxazosin 2 mg oral tab once daily [Active]; escitalopram oxalate 20 mg Oral tab 2 tab once daily [Active]; ferrous sulfate 325 mg (65 mg iron) Oral tab three times a day [Active]; Lasix 40 mg Oral tab 1 tab 2 times per day [Active]; gabapentin 300 mg oral cap BID [Active]; Novolin 70/30 [place]let Sub-Q [Active]; metoprolol tartrate 100 mg oral tab 2 times per day [Active]; trazodone 150 mg oral tab [Active]; tramadol 50 mg Oral tab [Active]; tamsulosin 0.4 mg oral cap 1 cap [Active]; Albuterol Inhl [Active]; - PMHx: 11:01 Anemia; Diabetes - IDDM; CAD; Hypertension; Hypercholesterolemia; COPD; Kidney disease; jl7 Seizures; Cerebrovascular accident; CHF; Myocardial infarction; Parkinsons; Pneumonia; - PSHx: 11:01 Coronary artery bypass graft; hip; PEG tube; knee; jl7 - Immunization history:: Adult Immunizations up to date, Client reports receiving the 1st dose of the Covid vaccine. - Social history:: Smoking status: Patient/guardian denies using tobacco. Screenin:20 Abuse screen: Denies threats or abuse. Denies injuries from another. Nutritional ll3 screening: No deficits noted. Tuberculosis screening: No symptoms or risk factors identified. Fall Risk No fall in past 12 months (0 pts). Secondary diagnosis (15 points) seizures, impaired mobility, IV access (20 points). Ambulatory Aid- None/Bed Rest/Nurse Assist (0 pts). Gait- Weak (10 pts.). Mental Status- Oriented to own ability (0 pts). Total Walter Fall Scale indicates High Risk Score (45 or more points). Fall prevention measures have been instituted. Side Rails Up X 2 Placed Close to Nursing Station Frequent Obs/Assessments Occuring Family Present and informed to notify staff if the need to leave the bedside As available patient and family educated on Fall Prevention Program and Strategies. Assessment: 11:15 General: See triage.. ll3 11:30 Reassessment: Holcomb bag replaced with new Holcomb bag to obtain a sterile urine sample. ll3 13:36 Reassessment: Patient appears in no apparent distress at this time. No changes from ll3 previously documented assessment. Patient and/or family updated on plan of care and expected duration. Pain level reassessed. Patient is alert, oriented x 3, equal unlabored respirations, skin warm/dry/pink. Patient denies pain at this time. 14:09 Reassessment: Patient appears in no apparent distress at this time. No changes from ll3 previously documented assessment. Patient and/or family updated on plan of care and expected duration. Pain level reassessed. Patient is alert, oriented x 3, equal unlabored respirations, skin warm/dry/pink. D/C delayed due to waiting for EMS. Vital Signs: 10:58 BP 136 / 59; Pulse 60; Resp 14; Temp 99.1; Pulse Ox 100% ; Weight 64.86 kg; Height 6 ll3 ft. 0 in. (182.88 cm); 11:13 BP 126 / 58; Pulse 58; Resp 16; Pulse Ox 100% ; ll3 12:15 BP 134 / 59; Pulse 58; Resp 16; Pulse Ox 99% ; ll3 13:30 BP 143 / 62; Pulse 59; Resp 17; Pulse Ox 99% ; ll3 14:00 BP 134 / 62; Pulse 59; Resp 12; Pulse Ox 99% ; ll3 14:40 BP 143 / 65; Pulse 58; Resp 14; Pulse Ox 99% ; ll3 10:58 Body Mass Index 19.39 (64.86 kg, 182.88 cm) 3 ED Course: 10:36 Patient arrived in ED. em1 10:38 Barron Stover PA is PHCP. jr8 10:38 Jax Lopes MD is Attending Physician. jr8 10:58 EKG completed in triage. Results shown to . ll3 11:07 Triage completed. ll3 11:17 Initial lab(s) drawn, IV placed and labs drawn by nursing students with nursing 3 instructor Irish Block RN. Inserted saline lock: 20 gauge in right hand, using aseptic technique. Blood collected. 11:19 T\T\S collected, blood band applied to patient. ll3 11:20 Patient has correct armband on for positive identification. Bed in low position. Call ll3 light in reach. Side rails up X2. environmental monitoring specialist on. Pulse ox on. NIBP on. Warm blanket given. 11:40 Cari Prajapati, RN is Primary Nurse. ll3 11:54 XRAY Chest (1 view) In Process Unspecified. EDMS 12:28 Lab(s) recollected, by me, sent to lab. ll3 12:46 Arm band placed on. ll3 12:49 Type and Screen Sent. ll3 13:05 Urine collected: Holcomb catheter specimen, cloudy. jl7 13:27 Antonio Tobias MD is Referral Physician. jr8 13:42 Basic Metabolic Panel Sent. ll3 13:42 CBC with Diff Sent. ll3 13:59 No provider procedures requiring assistance completed. ll3 14:00 IV discontinued, intact, bleeding controlled, No redness/swelling at site. Pressure ll3 dressing applied. Administered Medications: No medications were administered Outcome: 13:27 Discharge ordered by MD. jr8 13:59 Discharge instructions given to patient, family, Instructed on discharge instructions, ll3 follow up and referral plans. Demonstrated understanding of instructions, follow-up care. 13:59 Condition: stable ll3 14:51 Discharged to home via ambulance. ll3 14:51 Patient left the ED. ll3 Signatures: Dispatcher [employer] EDSC Wai Brian em1 Barron Stover PA PA jr8 Nuzhat العلي RN RN jl7 Cari Prajapati, ANDRADE RN ll3 Corrections: (The following items were deleted from the chart) 11:14 10:58 BP 136 / 59; Pulse 60bpm; Pulse Ox 100%; Temp 99.1F; 64.86 kg; Height 6 ft. 0 ll3 in.; BMI: 19.3; ll3
[2021-06-01 14:57] VITALS: BP 136/59; TEMP 99.1; O2SAT 100
[2021-06-01 20:36] LABS: Anisocytosis 1+; Blood Morphology Comment NOTED (NOT SEEN); Platelet Estimate ADEQ; Poikilocytosis SLIGHT; White Blood Cell Scan OK (OK)
--- NOTE | 2021-06-02 13:20 | EKG ---
Test Date: 2021-06-01 Test Time: 11:00:16 Supervisor Hard Candy: ANDRADE MEASUREMENT RESULTS: Intervals: Rate: 59 AL: 258 QRSD: 112 QT: 518 QTc: 512 [place]: P: 51 AL: 258 QRS: 7 T: -58 INTERPRETIVE STATEMENTS: Sinus bradycardia with 1st degree AV block with occasional premature ventricular complexes Incomplete left bundle branch block Nonspecific ST and T wave abnormality Prolonged QT Abnormal ECG Compared to ECG 04/05/2021 22:10:39 Ventricular premature complex(es) now present First degree AV block now present Left bundle-branch block now present ST (T wave) deviation now present Prolonged QT interval now present Electronically Signed On 06-02-21 13:17:05 FLAME CUTTING MACHINE OPERATOR by Martin Reyes
== END 2021-06-01 14:51 | disposition home or self-care (01) ==
LOC: ER 10:34
DX: E11.22 Type 2 diabetes mellitus with diabetic chronic kidney disease (principal); D63.1 Anemia in chronic kidney disease; I13.0 Hypertensive heart and chronic kidney disease with heart failure and stage 1 through stage 4 chronic kidney disease, or unspecified chronic kidney disease; N18.30 Chronic kidney disease, stage 3 unspecified; I50.9 Heart failure, unspecified; G20 Parkinson's disease; Z95.1 Presence of aortocoronary bypass graft; Z91.040 Latex allergy status; Z91.048 Other nonmedicinal substance allergy status
CPT/HCPCS: 36415; 71045; 80048; 80076; 81003; 81015; 83735; 83880; 84484; 85025; 85610; 86850; 86900; 86901; 87077; 87086; 87088; 87186; 93005; 99284

== ENCOUNTER 2021-06-10 09:59 | Inpatient (IN) | payer OTHER ==
--- OUTSIDE RECORDS SUMMARY | 2021-06-10 10:44 | XMS REPORT | Continuity of Care Document ---
:1955 Author Organization [facility] t Address [address] [place] [address] Care Team Providers Name Role Phone Ra CRUM Primary Care Physician Unavailable TEREZA Attending Clinician Unavailable GRIS Attending Clinician Unavailable Charly JONES Attending Clinician Doctor Unassigned, Name Attending Clinician Unavailable Ileana Mcintyre Attending Clinician Unavailable Dionna ZAFAR, A Attending Clinician Unavailable Adrian ZAFAR Attending Clinician Scott Sullivan MD Attending Clinician Tereza JONES Attending Clinician Daisy JONES P Attending Clinician Kelton Espinosa DO Attending Clinician Dante Pretty MD, J Attending Clinician Blanca JONES Attending Clinician Arash Cleveland DO Attending Clinician Jimy ZAFAR, E Attending Clinician Milton Devlin MD Attending Clinician MILTON DEVLIN Attending Clinician Unavailable Landon Attending Clinician Mary Ellen Bah MD Attending Clinician Marlon JONES Attending Clinician Tay JONES Attending Clinician Balaji STAYING MACHINE OPERATOR, M Attending Clinician Pob, Lab Main Attending Clinician Unavailable TAY Attending Clinician Unavailable Dion JONES Attending Clinician DION Attending Clinician Unavailable Anu LARSEN Attending Clinician Arash Sunshine MD Attending Clinician Arash SUNSHINE Attending Clinician Unavailable Elmo JONES Attending Clinician Unavailable ELMO Attending Clinician Unavailable ELMO Attending Clinician Unavailable 1, Lab Attending Clinician Unavailable Room, Therapy Tub Attending Clinician Unavailable DOYLE, R Attending Clinician Unavailable Doyle MOP, R Attending Clinician Singer LARSEN Attending Clinician Yohan Valderrama MD Attending Clinician Savita ROJAS R Attending Clinician Kayla JONES Attending Clinician Gris JONES Attending Clinician Joshua JONES Attending Clinician TEREZA Admitting Clinician Unavailable GRIS Admitting Clinician Unavailable Laurie JONES, Scott Admitting Clinician Marlon JONES Admitting Clinician Arash Sunshine MD Admitting Clinician Arash SUNSHINE Admitting Clinician Unavailable ELMO Admitting Clinician Unavailable Hailey KWON Admitting Clinician Unavailable Yohan Valderrama MD Admitting Clinician Gris JONES Admitting Clinician Payers Payer Name Policy Type Policy Number Effective Date Expiration Date S simone MEDICARE PART A [id number] 2020 \\T\\ B 00:00:00 MEDICAID SSI PENDING 2019 PENDING 00:00:00 Problems Condition Condition Condition Status Onset Resolution Last Treating Co mments Source Name Details Category Date Date Treatment Clinician Date E46 E46 Disease Active Univers Unspecifie Unspecifie 4-11 it y of d severe d severe 00:00: [place] protein-ca protein-ca 00 Me kevin maya Branch malnutriti malnutriti on on Upper GI Upper GI Disease Active Unive rs bleed bleed 4-10 ity of 00:00: [place] [facility] Hypoglycem Hypoglycem Disease Active 2020-0 U nivers ia ia 4-14 ity of 00:00: [place] [facility] CAD CAD Disease Active 2020-0 Univers (coronary (coronary 3-17 ity of artery artery 00:00: [place] disease) disease) [facility] CKD stage CKD stage Disease Active 2019- Uni vers 2 due to 2 due to 3-17 ity of type 2 type 2 00:00: [place] diabetes diabetes 00 [facility] mellitus mellitus Branch OSCAR (acute OSCAR (acute Disease Active 2019- U nivers kidney kidney 3-17 ity of injury) injury) 00:00: [place] [facility] Fe Fe Disease Active 2020-0 Univers deficiency deficiency 3-17 it y of anemia anemia 00:00: [place] [facility] Hyperkalem Hyperkalem Disease Active 2020-0 U nivers ia ia 3-17 ity of 00:00: [place] [facility] SOB SOB Disease Active 2020-0 Univers (shortness (shortness 2-29 it y of of breath) of breath) [place] Troponin I Troponin I Disease Active 2020-0 U nivers above above 2-05 ity of reference reference 00:00: [place] range range 00 Medical Branch Hypertensi Hypertensi Disease Active 2020-0 U nivers ve urgency ve urgency 2-05 it y of 00:00: [place] 00 Medical Branch CHF CHF Disease Active 2020-0 Univers (congestiv (congestiv 2-04 it y of e heart e heart 00:00: [place] failure) failure) 00 [facility] CHF CHF Disease Active 2020-0 Univers exacerbati exacerbati 2-04 it y of on on 00:00: [place] [facility] Anemia, Anemia, Disease Active Overview: Univ ers unspecifie unspecifie 9-11 Formattin ity of d type d type 00:00: g of this 00 note Medical might be Branch different from the original. Added automatic ally from request for surgery [id number] Dysphagia, Dysphagia, Disease Active Overview : Univers unspecifie unspecifie 9-11 Formattin ity of d type d type 00:00: g of this 00 note Medical might be Branch different from the original. Added automatic ally from request for surgery [id number] Atrial Atrial Disease Active Univers flutter flutter 4-03 ity of 00:00: 00 Medical Branch Chronic Chronic Disease Active Univers diastolic diastolic 4 ity of congestive congestive 00:00[place] heart heart 00 Medical failure failure Branch Acute on Acute on Disease Active Unive rs chronic chronic 4 ity of combined combined 00:00: [place] systolic systolic 00 Medica l and and Branch diastolic diastolic congestive congestive heart heart failure failure Coronary Coronary Disease Active Unive rs artery artery 4 ity of disease disease 00:00: [place] involving involving 00 Medi lizzy [place] Branch coronary coronary artery of artery of [place] heart with heart with angina angina pectoris pectoris HTN HTN Disease Active Univers (hypertens (hypertens 4-02 it y of ion) ion) 00:00: 00 Medical Branch HLD HLD Disease Active Univers (hyperlipi (hyperlipi 10-14 it y of demia) demia) 00:00: [place] 00 Medical Branch Type 2 Type 2 Disease Active Univers diabetes diabetes 402 ity of mellitus mellitus 00:00: [place] without without 00 Medical complicati complicati Br anch on on Pneumonia Pneumonia Disease Active Uni vers 4- ity of 00:00: [place] 00 Medical Branch NSTEMI NSTEMI Disease Active Univers (non-ST (non-ST 3-05 ity of elevated elevated 00:00: [place] myocardial myocardial 00 Me dical infarction infarction Br anch ) ) History of History of Disease Active U nivers [place] 3-01 ity of (myocardia (myocardia 00:00: [place] [...] ity of infection infection 00:[place] Right foot Right foot Disease Active U nivers infection infection 2-16 ity of 00:00: Medical Branch Foot Foot Disease Active Univers abscess, abscess, 2-16 ity of right right 00:00: Medical Branch Infection Infection Disease Active Uni vers 2-16 ity of 00:00: [place] [facility] History of History of Problem [...] Clinician Spironol Propensi Active Other - See 2019-0 K 6.2 U nivers actone ty to [...] ity of [place] Jose's disease Physici ans Mother Family history of Univers ity of [place] diabetes mellitus Physici ans Mother Family history of Univers ity of [place] hypertension Physicians Mother Family history of Univers ity of [place] malignant neoplasm Physic ians Father Family history of Univers ity of [place] diabetes mellitus Physici ans Father Family history of Univers ity of [place] hypertension Physicians Father Family history of Univers ity of [place] coronary artery Physician s disease Sister Family history of Univers ity of [place] malignant neoplasm Physic ians Brother Family history of Univers ity of [place] pancreatic cancer Physici ans Brother Cancer [facility] Father Coronary Heart Disease Un iversity of [facility] Father Diabetes [facility] Father Hypertension University o f [facility] [place] [facility] [place] Mother Cancer [facility] Mother Coronary Heart Disease Un iversity of [facility] Mother Diabetes [facility] Mother Heart [facility] Mother Hypertension University o f [facility] Sister Cancer [facility] Social History Social Habit Start Date Stop Date Quantity Comments Source Exposure to Not sure University of SARS-CoV-2 (event) [place] [facility] History SDOH University o f Alcohol Frequency [facility] edical Branch History SDPR University o f Alcohol Std Drinks [place] [facility] History [facility] University o f Alcohol Binge [place] [facility] Branch History of tobacco Cigarette Smoker University of use [facility] Alcohol intake 2020-05-03 2020-05-03 Current drinker Unive rsity of 00:00:00 00:00:00 of alcohol [facility] (finding) Branch History SDOH 2019-09-30 2019-09-30 3 University o f Financial 00:00:00 00:00:00 [place] [facility] History SDOH Food 2019-09-30 2019-09-30 1 Univers ity of Worry 00:00:00 00:00:00 [place] [facility] History SDPR Food 2019-09-30 2019-09-30 1 Univers ity of Scarcity 00:00:00 00:00:00 [place] [facility] History SDOH 2019-09-30 2019-09-30 2 University o f Transport Med 00:00:00 00:00:00 [facility] al Branch History SDOH 2019-09-30 2019-09-30 2 University o f Transport Non-Med 00:00:00 00:00:00 [facility] Branch Education 2019-09-29 2019-09-29 13 University of 00:00:00 00:00:00 [facility] Tobacco use and 2019-09-29 2019-09-29 Never used Universit y of exposure 00:00:00 00:00:00 [facility] Cigarettes smoked 2019-09-29 2019-09-29 Univers ity of current (pack per 00:00:00 00:00:00 [facility]) - Reported Branch Cigarette 2019-09-29 2019-09-29 University of pack-years 00:00:00 00:00:00 [facility] Tobacco Comment 2018-04-03 2018-04-03 2-2.5 PPD X 40 Unive rsity of 00:00:00 00:00:00 years, down to [facility] 1PPD since Branch 02/2018 Alcohol Comment 2018-04-03 2018-04-03 quit5 years ago Univ ersity of 00:00:00 00:00:00 [facility] Sex [birth year] Universit y of 00:00:00 00:00:00 [facility] Smoking Status Start Date Stop Date Source Ex-smoker (finding) University o f [place] [facility] Current every day smoker 2019-09-28 00:00:00 Uni versity of [facility] Medications Ordered Filled Start Stop Current Ordering Indication Dosage Frequency Signature Comments Components Source Medication Medication Date Date Medication? Clinician (SIG) Name Name metoprolol Yes [id number] 25mg Take 25 mg Univers tartrate 75 4-29 through ity o f mg Tab 00:00: enteral [place] 00 tube 2 Medical (two) Branch times daily. metoprolol Yes [id number] 25mg Take 25 mg Univers tartrate 75 4-29 through ity o f mg Tab 00:00: enteral [place] 00 tube 2 Medical (two) Branch times daily. metoprolol Yes [id number] 100mg Take 1 Univers tartrate 4-29 tablet ity of 100 mg 00:00: through [place] tablet 00 enteral Medical tube 2 Branch (two) times daily. metoprolol Yes [id number] 25mg Take 25 mg Univers tartrate 75 4-29 through ity o f mg Tab 00:00: enteral [place] 00 tube 2 Medical (two) Branch times daily. metoprolol 2020-0 Yes [id number] 100mg Take 1 Univers tartrate 4-29 tablet ity of 100 mg 00:00: through [place] tablet 00 enteral Medical tube 2 Branch (two) times daily. metoprolol 2020-0 Yes [id number] 25mg Take 25 mg Univers tartrate 75 4-29 through ity o f mg Tab 00:00: enteral [place] 00 tube 2 Medical (two) Branch times daily. metoprolol 2020-0 Yes [id number] 100mg Take 1 Univers tartrate 4-29 tablet ity of 100 mg 00:00: through [place] tablet 00 enteral Medical tube 2 Branch (two) times daily. metoprolol 2020-0 Yes [id number] 25mg Take 25 mg Univers tartrate 75 4-29 through ity o f mg Tab 00:00: enteral [place] 00 tube 2 Medical (two) Branch times daily. metoprolol 2020-0 Yes [id number] 100mg Take 1 Univers tartrate 4-29 tablet ity of 100 mg 00:00: through [place] tablet 00 enteral Medical tube 2 Branch (two) times daily. metoprolol 2020-0 Yes [id number] 25mg Take 25 mg Univers tartrate 75 4-29 through ity o f mg Tab 00:00: enteral [place] 00 tube 2 Medical (two) Branch times daily. metoprolol 2020-0 Yes [id number] 100mg Take 1 Univers tartrate 4-29 tablet ity of 100 mg 00:00: through [place] tablet 00 enteral Medical tube 2 Branch (two) times daily. metoprolol 2020-0 Yes [id number] 25mg Take 25 mg Univers tartrate 75 4-29 through ity o f mg Tab 00:00: enteral [place] 00 tube 2 Medical (two) Branch times daily. metoprolol 2020-0 Yes [id number] 100mg Take 1 Univers tartrate 4-29 tablet ity of 100 mg 00:00: through [place] tablet 00 enteral Medical tube 2 Branch (two) times daily. metoprolol 2020-0 Yes [id number] 25mg Take 25 mg Univers tartrate 75 4-29 through ity o f mg Tab 00:00: enteral [place] 00 tube 2 Medical (two) Branch times daily. metoprolol 2020-0 Yes [id number] 100mg Take 1 Univers tartrate 4-29 tablet ity of 100 mg 00:00: through [place] tablet 00 enteral Medical tube 2 Branch (two) times daily. sennosides- Yes [id number] 1{tbl} Take 1 Univers docusate 4-28 tablet ity of sodium 00:00: through [place] 8.6-50 mg 00 enteral Medical per tablet tube Branch daily. lidocaine 5 Yes [id number] 1{patch Apply 1 Univers % (700 4-28 } Patch to ity of mg/patch) 00:00: area(s) [place] patch 00 daily. Medical Branch ferrous Yes [id number] 300mg Take 5 mL Univers sulfate 300 4-28 through ity o f mg (60 mg 00:00: enteral [place] iron)/5 mL 00 tube every Med ical solution other day. Bran h sennosides- Yes [id number] 1{tbl} Take 1 Univers docusate 4-28 tablet ity of sodium 00:00: through [place] 8.6-50 mg 00 enteral Medical per tablet tube Branch daily. lidocaine 5 Yes [id number] 1{patch Apply 1 Univers % (700 4-28 } Patch to ity of mg/patch) 00:00: area(s) [place] patch 00 daily. Medical Branch esomeprazol Yes [id number] 40mg Take 40 mg Univers e (NEXIUM 4-28 1 by mouth ity of PACKET) 40 00:00: daily with [place] mg packet [facility]. [facility] sennosides- Yes [id number] 1{tbl} Take 1 Univers docusate 4-28 tablet ity of sodium 00:00: through [place] 8.6-50 mg 00 enteral Medical per tablet tube Branch daily. lidocaine 5 Yes [id number] 1{patch Apply 1 Univers % (700 4-28 } Patch to ity of mg/patch) 00:00: area(s) [place] patch 00 daily. Medical Branch esomeprazol Yes [id number] 40mg Take 40 mg Univers e (NEXIUM 4-28 1 by mouth ity of PACKET) 40 00:00: daily with [place] mg packet 00 breakfast. [facility] sennosides- 2021-0 Yes [id number] 1{tbl} Take 1 Univers docusate 4-28 tablet ity of sodium 00:00: through [place] 8.6-50 mg 00 enteral Medical per tablet tube Branch daily. lidocaine 5 2020-0 Yes [id number] 1{patch Apply 1 Univers % (700 4-28 } Patch to ity of mg/patch) 00:00: area(s) [place] patch 00 daily. Medical Branch esomeprazol 2020- Yes [id number] 40mg Take 40 mg Univers e (NEXIUM 4-28 1 by mouth ity of PACKET) 40 00:00: daily with [place] mg packet 00 breakfast. [facility]- Yes [id number] 1{tbl} Take 1 Univers docusate 4-28 tablet ity of sodium 00:00: through [place] 8.6-50 mg 00 enteral Medical per tablet tube Branch daily. lidocaine 5 2020- Yes [id number] 1{patch Apply 1 Univers % (700 4-28 } Patch to ity of mg/patch) 00:00: area(s) [place] patch 00 daily. Medical Branch esomeprazol Yes [id number] 40mg Take 40 mg Univers e (NEXIUM 4-28 1 by mouth ity of PACKET) 40 00:00: daily with [place] mg packet 00 breakfast. [facility]- Yes [id number] 1{tbl} Take 1 Univers docusate 4-28 tablet ity of sodium 00:00: through [place] 8.6-50 mg 00 enteral Medical per tablet tube Branch daily. lidocaine 5 2020- Yes [id number] 1{patch Apply 1 Univers % (700 4-28 } Patch to ity of mg/patch) 00:00: area(s) [place] patch 00 daily. Medical Branch esomeprazol Yes [id number] 40mg Take 40 mg Univers e (NEXIUM 4-28 1 by mouth ity of PACKET) 40 00:00: daily with [place] mg packet 00 breakfast. [facility]- Yes [id number] 1{tbl} Take 1 Univers docusate 4-28 tablet ity of sodium 00:00: through [place] 8.6-50 mg 00 enteral Medical per tablet tube Branch daily. lidocaine 5 Yes [id number] 1{patch Apply 1 Univers % (700 4-28 } Patch to ity of mg/patch) 00:00: area(s) [place] patch 00 daily. Medical Branch esomeprazol Yes [id number] 40mg Take 40 mg Univers e (NEXIUM 4-28 1 by mouth ity of PACKET) 40 00:00: daily with [place] mg packet 00 breakfast. [facility]- Yes [id number] 1{tbl} Take 1 Univers docusate 4-28 tablet ity of sodium 00:00: through [place] 8.6-50 mg 00 enteral Medical per tablet tube Branch daily. lidocaine 5 Yes [id number] 1{patch Apply 1 Univers % (700 4-28 } Patch to ity of mg/patch) 00:00: area(s) [place] patch 00 daily. Medical Branch esomeprazol Yes [id number] 40mg Take 40 mg Univers e (NEXIUM 4-28 1 by mouth ity of PACKET) 40 00:00: daily with [place] mg packet 00 breakfast. [facility] Yes [id number] 1{tbl} Take 1 Univers docusate 4-28 tablet ity of sodium 00:00: through [place] 8.6-50 mg 00 enteral Medical per tablet tube Branch daily. lidocaine Yes [id number] 1{patch Apply 1 Univers % (700 4-28 } Patch to ity of mg/patch) 00:00: area(s) [place] patch 00 daily. Medical Branch esomeprazol Yes [id number] 40mg Take 40 mg Univers e (NEXIUM 4-28 1 by mouth ity of PACKET) 40 00:00: daily with [place] mg packet 00 breakfast. [facility]- Yes [id number] 1{tbl} Take 1 Univers docusate 4-28 tablet ity of sodium 00:00: through [place] 8.6-50 mg 00 enteral Medical per tablet tube Branch daily. lidocaine 5 2020- Yes [id number] 1{patch Apply 1 Univers % (700 4-28 } Patch to ity of mg/patch) 00:00: area(s) [place] patch 00 daily. Medical Branch esomeprazol Yes [id number] 40mg Take 40 mg Univers e (NEXIUM 4-28 1 by mouth ity of PACKET) 40 00:00: daily with [place] mg packet 00 breakfast. [facility] [id number] 1{tbl} Take 1 Univers docusate 4-28 tablet ity of sodium 00:00: through [place] 8.6-50 mg 00 enteral Medical per tablet tube Branch daily. lidocaine 5 Yes [id number] 1{patch Apply 1 Univers % (700 4-28 } Patch to ity of mg/patch) 00:00: area(s) [place] patch 00 daily. Medical Branch esomeprazol Yes [id number] 40mg Take 40 mg Univers e (NEXIUM 4-28 1 by mouth ity of PACKET) 40 00:00: daily with [place] mg packet 00 breakfast. [facility] Yes [id number] 1{tbl} Take 1 Univers docusate 4-28 tablet ity of sodium 00:00: through [place] 8.6-50 mg 00 enteral Medical per tablet tube Branch daily. lidocaine 5 Yes [id number] 1{patch Apply 1 Univers % (700 4-28 } Patch to ity of mg/patch) 00:00: area(s) [place] patch 00 daily. Medical Branch esomeprazol Yes [id number] 40mg Take 40 mg Univers e (NEXIUM 4-28 1 by mouth ity of PACKET) 40 00:00: daily with [place] mg packet [facility]. [facility] ferrous 2020-2020- No [id number] 220mg Take 5 mL Univers sulfate 220 11-09- 1 by mouth 3 i ty of mg (44 mg 00:00: 04:59 (three) [place] iron)/5 mL 00 :00 times Medical solution daily with Branc h meals for 30 days. gabapentin 2020- No [id number] 300mg Take 6 mL Univers 250 mg/5 mL 11-09-29 through ity of solution 00:00: 04:59 enteral [place] 00 :00 tube 3 Medical (three) Branch times daily for 30 days. ferrous 2020- No [id number] 220mg Take 5 mL Univers sulfate 220 11-09- 1 by mouth 3 i ty of mg (44 mg 00:00: 04:59 (three) [place] iron)/5 mL 00 :00 times Medical solution daily with Branc h meals for 30 days. gabapentin 2020- No [id number] 300mg Take 6 mL Univers 250 mg/5 mL 11-09- through ity of solution 00:00: 04:59 enteral [place] 00 :00 tube 3 Medical (three) Branch times daily for 30 days. ferrous 2020- No [id number] 220mg Take 5 mL Univers sulfate 220 11-09- 1 by mouth 3 i ty of mg (44 mg 00:00: 04:59 (three) [place] iron)/5 mL 00 :00 times Medical solution daily with Branc h meals for 30 days. gabapentin 2020- No [id number] 300mg Take 6 mL Univers 250 mg/5 mL 11-09- through ity of solution 00:00: 04:59 enteral [place] 00 :00 tube 3 Medical (three) Branch times daily for 30 days. ferrous 2020- No [id number] 220mg Take 5 mL Univers sulfate 220 11-09 1 by mouth 3 i ty of mg (44 mg 00:00: 04:59 (three) [place] iron)/5 mL 00 :00 times Medical solution daily with Branc h meals for 30 days. gabapentin 2020- No [id number] 300mg Take 6 mL Univers 250 mg/5 mL 11-09- through ity of solution 00:00: 04:59 enteral [place] 00 :00 tube 3 Medical (three) Branch times daily for 30 days. ferrous 2020- No [id number] 220mg Take 5 mL Univers sulfate 220 11-09- 1 by mouth 3 i ty of mg (44 mg 00:00: 04:59 (three) [place] iron)/5 mL 00 :00 times Medical solution daily with Branc h meals for 30 days. gabapentin 2020- No [id number] 300mg Take 6 mL Univers 250 mg/5 mL 11-09-29 through ity of solution 00:: :59 enteral [place] 00 :00 tube 3 Medical (three) Branch times daily for 30 days. ferrous 2020- No [id number] 220mg Take 5 mL Univers sulfate 220 11-09- 1 by mouth 3 i ty of mg (44 mg 00:: :59 (three) [place] iron)/5 mL 00 :00 times Medical solution daily with Branc h meals for 30 days. gabapentin 2020- No [id number] 300mg Take 6 mL Univers 250 mg/5 mL 11-09- through ity of solution 00:: :59 enteral [place] 00 :00 tube 3 Medical (three) Branch times daily for 30 days. ferrous 2020- No [id number] 220mg Take 5 mL Univers sulfate 220 11-09- 1 by mouth 3 i ty of mg (44 mg 00:: :59 (three) [place] iron)/5 mL 00 :00 times Medical solution daily with Branc h meals for 30 days. gabapentin 2020- No [id number] 300mg Take 6 mL Univers 250 mg/5 mL 11-09- through ity of solution 00:: :59 enteral [place] 00 :00 tube 3 Medical (three) Branch times daily for 30 days. ferrous 2020- No [id number] 220mg Take 5 mL Univers sulfate 220 11-09- 1 by mouth 3 i ty of mg (44 mg 00:: :59 (three) [place] iron)/5 mL 00 :00 times Medical solution daily with Branc h meals for 30 days. gabapentin 2020- No [id number] 300mg Take 6 mL Univers 250 mg/5 mL 11-09- through ity of solution 00:: :59 enteral [place] 00 :00 tube 3 Medical (three) Branch times daily for 30 days. ferrous 2020- No [id number] 300mg Take 5 mL Univers sulfate 300 11-09- through ity of mg (60 mg 00:00: 00:00 [place] iron)/5 mL 00 :00 tube every Med ical solution other day. Branc h escitalopra 2020- No 20mg Take 20 mg Univers m oxalate 11-08 by mouth ity o f 20 mg 19:31: 00:00 daily. [place] tablet 00 :00 [facility] traZODone 2020- No 100mg Take 100 Un michael 100 mg 11-08- mg by ity of tablet 19:31: 00:00 mouth at [place] 00 :00 bedtime. [facility] escitalopra 2020- No 20mg Take 20 mg Univers m oxalate 11-08 by mouth ity o f 20 mg 19:31: 00:00 daily. [place] tablet 00 :00 [facility] traZODone 2020- No 100mg Take 100 Un michael 100 mg 11-08- mg by ity of tablet 19:31: 00:00 mouth at [place] 00 :00 bedtime. [facility] cranberry 2020- No 1{tbl} Take 1 Uni vers fruit 11-08 tablet by ity of (CRANBERRY) 19:30: 00:00 [place] 450 mg Tab 59 :00 daily. [facility] cranberry 2020- No 1{tbl} Take 1 Uni vers fruit 11-08- tablet by ity of (CRANBERRY) 19:30: 00:00 [place] 450 mg Tab 59 :00 daily. [facility] sodium Yes 4mL 4 mL, Univers chloride 7% 11-08 Inhalation it y of (HYPER-JOSE) 14:45: , BID, [place] nebulizer 00 First dose Medi lizzy solution 4 on Sat [place] mL 11/08/20 at 0945, Until Discontinu ed, Routine lidocaine Yes 1{patch 1 Patch, U nivers (LIDODERM) 11-08 } Topical, ity o f 5 % (700 14:00: Administer You as mg/patch) 00 over 12 Medical patch 1 Hours, Branch Patch DAILY, First dose on Sat11/08/20 at 0900, Until Discontinu ed, Routine acetaminoph Yes [id number] 325mg Take 10.25 Univers en 160 mg/5 - mL through it y of mL liquid 00:00: enteral [place] 00 tube every Medical 6 (six) Branch hours as needed (pain, fever). metoprolol 0 Yes [id number] 100mg Take 10 mL Univers 10 mg/mL 4-27 through ity of 00:00: enteral 00 tube every Medical 12 Branch (twelve) hours. pantoprazol 2020-0 Yes [id number] 40mg Take 2 Univers e 20 mg EC 4-27 tablets by ity of tablet 00:00: mouth 00 daily. Medical Branch pantoprazol 0 Yes [id number] 40mg Take 20 mL Univers e 4-27 through ity of (PROTONIX) 00:00: [place] 2 mg/mL 00 tube Medical oral daily. Branch suspension amLODIPine 0 Yes [id number] 5mg Take 1 [facility] 5 mg tablet 4-27 tablet ity of 00:00: through enteral Medical tube Branch daily. calcitrioL 0 Yes [id number] .5ug Take 1 [facility] 0.5 mcg 4-27 capsule by ity of capsule 00:00: mouth [place] 00 daily. Medical Branch clopidogreL 2020-0 Yes [id number] 75mg Take 1 [facility] 75 mg 4-27 tablet ity of tablet 00:00: through [place] enteral Medical tube Branch daily. escitalopra 2020-0 Yes [id number] 20mg Take 1 [facility] m oxalate 4-27 tablet ity of 20 mg 00:00: through [facility] 00 enteral Medical tube Branch daily. furosemide 2020-0 Yes [id number] 40mg Take 1 [facility] 40 mg 4-27 tablet by ity of tablet 00:00: mouth [place] 00 every Medical morning Branch and evening. metFORMIN 2020-0 Yes [id number] 500mg Take 1 [facility] 500 mg 4-27 tablet ity of tablet 00:00: through [place] 00 enteral Medical tube 2 Branch (two) times daily with meals. ondansetron 2020-0 Yes [id number] 4mg Take 1 [facility] (ZOFRAN 4-27 tablet by ity of ODT) 4 mg 00:00: mouth [place] disintegrat 00 every 8 Medic al ing tablet (eight) Branch hours as needed for Nausea and Vomiting (N/V). traZODone 2020-0 Yes [id number] 100mg Take 1 [facility] 100 mg 4-27 tablet ity of tablet 00:00: through [place] 00 enteral Medical tube at Branch bedtime. aspirin 81 2020-0 Yes [id number] 81mg Take 1 [facility] mg chewable 4-27 tablet ity of tablet 00:00: through enteral Medical tube Branch daily. atorvastati 2020-0 Yes [id number] 80mg Take 1 [facility] n 80 mg 4-27 tablet ity of tablet 00:00: through enteral Medical tube at Branch bedtime. gabapentin 2020-0 Yes [id number] 300mg Take 6 mL [facility] 250 mg/5 mL 4-27 through ity o f solution 00:00: enteral 00 tube 3 Medical (three) Branch times daily. ipratropium 2020-0 Yes [id number] 3mL Inhale 3 [facility] -albuteroL 4-27 mL every 6 ity of 0.5 mg-3 00:00: (six) [place] mg(2.5 mg 00 hours as Medica l base)/3 mL needed for [facility] nebulizer Wheezing solution or Shortness of Breath. acetaminoph 0 Yes [id number] 325mg Take 10.25 [facility] en 160 mg/5 4-27 mL through it y of mL liquid 00:00: enteral 00 tube every Medical 6 (six) Branch hours as needed (pain, fever). metoprolol 2020-0 Yes [id number] 100mg Take 10 mL [facility] 10 mg/mL 4-27 through ity of 00:00: enteral 00 tube every Medical 12 Branch (twelve) hours. pantoprazol 2020-0 Yes [id number] 40mg Take 2 [facility] e 20 mg EC 4-27 tablets by ity of tablet 00:00: mouth daily. Medical Branch amLODIPine 2020-0 Yes [id number] 5mg Take 1 [facility] 5 mg tablet 4-27 tablet ity of 00:00: through enteral Medical tube Branch daily. calcitrioL 2020-0 Yes [id number] .5ug Take 1 [facility] 0.5 mcg 4-27 capsule by ity of capsule 00:00: mouth daily. Medical Branch clopidogreL 2020-0 Yes [id number] 75mg Take 1 [facility] 75 mg 4-27 tablet ity of tablet 00:00: through enteral Medical tube Branch daily. escitalopra 2020-0 Yes [id number] 20mg Take 1 [facility] m oxalate 4-27 tablet ity of 20 mg 00:00: through [place] tablet 00 enteral Medical tube Branch daily. furosemide 2020-0 Yes [id number] 40mg Take 1 [facility] 40 mg 4-27 tablet by ity of tablet 00:00: mouth [place] 00 every Medical morning Branch and evening. metFORMIN 2020-0 Yes [id number] 500mg Take 1 [facility] 500 mg 4-27 tablet ity of tablet 00:00: through [place] 00 enteral Medical tube 2 Branch (two) times daily with meals. ondansetron 2020-0 Yes [id number] 4mg Take 1 [facility] (ZOFRAN 4-27 tablet by ity of ODT) 4 mg 00:00: mouth [place] disintegrat 00 every 8 Medic al ing tablet (eight) Branch hours as needed for Nausea and Vomiting (N/V). traZODone 0 Yes [id number] 100mg Take 1 [facility] 100 mg 4-27 tablet ity of tablet 00:00: through [place] 00 enteral Medical tube at Branch bedtime. aspirin 81 2020-0 Yes [id number] 81mg Take 1 [facility] mg chewable 4-27 tablet ity of tablet 00:00: through [place] 00 enteral Medical tube Branch daily. atorvastati 0 Yes [id number] 80mg Take 1 [facility] n 80 mg 4-27 tablet ity of tablet 00:00: through [place] 00 enteral Medical tube at Branch bedtime. ipratropium 0 Yes [id number] 3mL Inhale 3 [facility] -albuteroL 4-27 mL every 6 ity of 0.5 mg-3 00:00: (six) [place] mg(2.5 mg 00 hours as Medica l base)/3 mL needed for [facility] nebulizer Wheezing solution or Shortness of Breath. acetaminoph 2020-0 Yes [id number] 325mg Take 10.25 [facility] en 160 mg/5 4-27 mL through it y of mL liquid 00:00: enteral [place] 00 tube every Medical 6 (six) Branch hours as needed (pain, fever). metoprolol 2020-0 Yes [id number] 100mg Take 10 mL [facility] 10 mg/mL 4-27 through ity of 00:00: enteral [place] 00 tube every Medical 12 Branch (twelve) hours. pantoprazol 2020-0 Yes [id number] 40mg Take 2 [facility] e 20 mg EC 4-27 tablets by ity of tablet 00:00: mouth [place] 00 daily. Medical Branch amLODIPine 0 Yes [id number] 5mg Take 1 [facility] 5 mg tablet 4-27 tablet ity of 00:00: through [place] enteral Medical tube Branch daily. calcitrioL Yes [id number] .5ug Take 1 [facility] 0.5 mcg 4-27 capsule by ity of capsule 00:00: mouth [place] 00 daily. Medical Branch clopidogreL Yes [id number] 75mg Take 1 [facility] 75 mg 4-27 tablet ity of tablet 00:00: through [place] 00 enteral Medical tube Branch daily. escitalopra Yes [id number] 20mg Take 1 [facility] m oxalate 4-27 tablet ity of 20 mg 00:00: through [facility] 00 enteral Medical tube Branch daily. furosemide Yes [id number] 40mg Take 1 [facility] 40 mg 4-27 tablet by ity of tablet 00:00: mouth [place] 00 every Medical morning Branch and evening. metFORMIN Yes [id number] 500mg Take 1 [facility] 500 mg 4-27 tablet ity of tablet 00:00: through [place] enteral Medical tube 2 Branch (two) times daily with meals. ondansetron Yes [id number] 4mg Take 1 [facility] (ZOFRAN 4-27 tablet by ity of ODT) 4 mg 00:00: mouth [place] disintegrat 00 every 8 Medic al ing tablet (eight) Branch hours as needed for Nausea and Vomiting (N/V). traZODone Yes [id number] 100mg Take 1 [facility] 100 mg 4-27 tablet ity of tablet 00:00: through [place] 00 enteral Medical tube at Branch bedtime. aspirin 81 0 Yes [id number] 81mg Take 1 [facility] mg chewable 4-27 tablet ity of tablet 00:00: through [place] 00 enteral Medical tube Branch daily. atorvastati Yes [id number] 80mg Take 1 [facility] n 80 mg 4-27 tablet ity of tablet 00:00: through [place] 00 enteral Medical tube at Branch bedtime. ipratropium Yes [id number] 3mL Inhale 3 [facility] -albuteroL 4-27 mL every 6 ity of 0.5 mg-3 00:00: (six) [place] mg(2.5 mg 00 hours as Medica l base)/3 mL needed for [facility] nebulizer Wheezing solution or Shortness of Breath. acetaminoph Yes [id number] 325mg Take 10.25 [facility] en 160 mg/5 4-27 mL through it y of mL liquid 00:00: enteral [place] 00 tube every Medical 6 (six) Branch hours as needed (pain, fever). pantoprazol Yes [id number] 40mg Take 2 [facility] e 20 mg EC 4-27 tablets by ity of tablet 00:00: mouth [place] 00 daily. Medical Branch amLODIPine Yes [id number] 5mg Take 1 [facility] 5 mg tablet 4-27 tablet ity of 00:00: through [place] enteral Medical tube Branch daily. calcitrioL Yes [id number] .5ug Take 1 [facility] 0.5 mcg 4-27 capsule by ity of capsule 00:00: mouth [place] 00 daily. Medical Branch clopidogreL Yes [id number] 75mg Take 1 [facility] 75 mg 4-27 tablet ity of tablet 00:00: through [place] 00 enteral Medical tube Branch daily. escitalopra Yes [id number] 20mg Take 1 [facility] m oxalate 4-27 tablet ity of 20 mg 00:00: through [facility] 00 enteral Medical tube Branch daily. furosemide Yes [id number] 40mg Take 1 [facility] 40 mg 4-27 tablet by ity of tablet 00:00: mouth [place] 00 every Medical morning Branch and evening. metFORMIN Yes [id number] 500mg Take 1 [facility] 500 mg 4-27 tablet ity of tablet 00:00: through [place] 00 enteral Medical tube 2 Branch (two) times daily with meals. ondansetron Yes [id number] 4mg Take 1 [facility] (ZOFRAN 4-27 tablet by ity of ODT) 4 mg 00:00: mouth [place] disintegrat 00 every 8 Medic al ing tablet (eight) Branch hours as needed for Nausea and Vomiting (N/V). traZODone Yes [id number] 100mg Take 1 [facility] 100 mg 4-27 tablet ity of tablet 00:00: through [place] 00 enteral Medical tube at Branch bedtime. aspirin 81 2021-0 Yes [id number] 81mg Take 1 [facility] mg chewable 4-27 tablet ity of tablet 00:00: through [place] enteral Medical tube Branch daily. atorvastati 2020-0 Yes [id number] 80mg Take 1 [facility] n 80 mg 4-27 tablet ity of tablet 00:00: through enteral Medical tube at Branch bedtime. ipratropium 2020-0 Yes [id number] 3mL Inhale 3 [facility] -albuteroL 4-27 mL every 6 ity of 0.5 mg-3 00:00: (six) [place] mg(2.5 mg 00 hours as Medica l base)/3 mL needed for [facility] nebulizer Wheezing solution or Shortness of Breath. acetaminoph 2020-0 Yes [id number] 325mg Take 10.25 [facility] en 160 mg/5 4-27 mL through it y of mL liquid 00:00: enteral [place] 00 tube every Medical 6 (six) Branch hours as needed (pain, fever). pantoprazol 0 Yes [id number] 40mg Take 2 [facility] e 20 mg EC 4-27 tablets by ity of tablet 00:00: mouth daily. Medical Branch amLODIPine 2020-0 Yes [id number] 5mg Take 1 [facility] 5 mg tablet 4-27 tablet ity of 00:00: through [place] enteral Medical tube Branch daily. calcitrioL 2020-0 Yes [id number] .5ug Take 1 [facility] 0.5 mcg 4-27 capsule by ity of capsule 00:00: mouth [place] daily. Medical Branch clopidogreL 2020-0 Yes [id number] 75mg Take 1 [facility] 75 mg 4-27 tablet ity of tablet 00:00: through [place] enteral Medical tube Branch daily. escitalopra 2020-0 Yes [id number] 20mg Take 1 [facility] m oxalate 4-27 tablet ity of 20 mg 00:00: through [facility] 00 enteral Medical tube Branch daily. furosemide 2020-0 Yes [id number] 40mg Take 1 [facility] 40 mg 4-27 tablet by ity of tablet 00:00: mouth [place] 00 every Medical morning Branch and evening. metFORMIN 2020-0 Yes [id number] 500mg Take 1 [facility] 500 mg 4-27 tablet ity of tablet 00:00: through [place] 00 enteral Medical tube 2 Branch (two) times daily with meals. ondansetron 0 Yes [id number] 4mg Take 1 [facility] (ZOFRAN 4-27 tablet by ity of ODT) 4 mg 00:00: mouth [place] disintegrat 00 every 8 Medic al ing tablet (eight) Branch hours as needed for Nausea and Vomiting (N/V). traZODone 0 Yes [id number] 100mg Take 1 [facility] 100 mg 4-27 tablet ity of tablet 00:00: through 00 enteral Medical tube at Branch bedtime. aspirin 81 0 Yes [id number] 81mg Take 1 [facility] mg chewable 4-27 tablet ity of tablet 00:00: through enteral Medical tube Branch daily. atorvastati Yes [id number] 80mg Take 1 [facility] n 80 mg 4-27 tablet ity of tablet 00:00: through enteral Medical tube at Branch bedtime. ipratropium 0 Yes [id number] 3mL Inhale 3 [facility] -albuteroL 4-27 mL every 6 ity of 0.5 mg-3 00:00: (six) [place] mg(2.5 mg 00 hours as Medica l base)/3 mL needed for [facility] nebulizer Wheezing solution or Shortness of Breath. acetaminoph Yes [id number] 325mg Take 10.25 [facility] en 160 mg/5 4-27 mL through it y of mL liquid 00:00: enteral 00 tube every Medical 6 (six) Branch hours as needed (pain, fever). pantoprazol 0 Yes [id number] 40mg Take 2 [facility] e 20 mg EC 4-27 tablets by ity of tablet 00:00: mouth 00 daily. Medical Branch amLODIPine 0 Yes [id number] 5mg Take 1 [facility] 5 mg tablet 4-27 tablet ity of 00:00: through enteral Medical tube Branch daily. calcitrioL 2020-0 Yes [id number] .5ug Take 1 [facility] 0.5 mcg 4-27 capsule by ity of capsule 00:00: mouth 00 daily. Medical Branch clopidogreL 2020-0 Yes [id number] 75mg Take 1 [facility] 75 mg 4-27 tablet ity of tablet 00:00: through enteral Medical tube Branch daily. escitalopra 2021-0 Yes [id number] 20mg Take 1 [facility] m oxalate 4-27 tablet ity of 20 mg 00:00: through [place] tablet 00 enteral Medical tube Branch daily. furosemide 2020-0 Yes [id number] 40mg Take 1 [facility] 40 mg 4-27 tablet by ity of tablet 00:00: mouth [place] 00 every Medical morning Branch and evening. metFORMIN 2020-0 Yes [id number] 500mg Take 1 [facility] 500 mg 4-27 tablet ity of tablet 00:00: through 00 enteral Medical tube 2 Branch (two) times daily with meals. ondansetron 2020-0 Yes [id number] 4mg Take 1 [facility] (ZOFRAN 4-27 tablet by ity of ODT) 4 mg 00:00: mouth [place] disintegrat 00 every 8 Medic al ing tablet (eight) Branch hours as needed for Nausea and Vomiting (N/V). traZODone 2020-0 Yes [id number] 100mg Take 1 [facility] 100 mg 4-27 tablet ity of tablet 00:00: through 00 enteral Medical tube at Branch bedtime. aspirin 81 2020-0 Yes [id number] 81mg Take 1 [facility] mg chewable 4-27 tablet ity of tablet 00:00: through 00 enteral Medical tube Branch daily. atorvastati 0 Yes [id number] 80mg Take 1 [facility] n 80 mg 4-27 tablet ity of tablet 00:00: through 00 enteral Medical tube at Branch bedtime. ipratropium 2020-0 Yes [id number] 3mL Inhale 3 [facility] -albuteroL 4-27 mL every 6 ity of 0.5 mg-3 00:00: (six) [place] mg(2.5 mg 00 hours as Medica l base)/3 mL needed for [facility] nebulizer Wheezing solution or Shortness of Breath. acetaminoph 0 Yes [id number] 325mg Take 10.25 [facility] en 160 mg/5 4-27 mL through it y of mL liquid 00:00: enteral [place] 00 tube every Medical 6 (six) Branch hours as needed (pain, fever). pantoprazol 2020-0 Yes [id number] 40mg Take 2 [facility] e 20 mg EC 4-27 tablets by ity of tablet 00:00: mouth [place] 00 daily. Medical Branch amLODIPine 2021-0 Yes [id number] 5mg Take 1 [facility] 5 mg tablet 4-27 tablet ity of 00:00: through [place] enteral Medical tube Branch daily. calcitrioL Yes [id number] .5ug Take 1 [facility] 0.5 mcg 4-27 capsule by ity of capsule 00:00: mouth [place] 00 daily. Medical Branch clopidogreL 0 Yes [id number] 75mg Take 1 [facility] 75 mg 4-27 tablet ity of tablet 00:00: through [place] 00 enteral Medical tube Branch daily. escitalopra Yes [id number] 20mg Take 1 [facility] m oxalate 4-27 tablet ity of 20 mg 00:00: through [facility] 00 enteral Medical tube Branch daily. furosemide Yes [id number] 40mg Take 1 [facility] 40 mg 4-27 tablet by ity of tablet 00:00: mouth [place] 00 every Medical morning Branch and evening. metFORMIN Yes [id number] 500mg Take 1 [facility] 500 mg 4-27 tablet ity of tablet 00:00: through [place] enteral Medical tube 2 Branch (two) times daily with meals. ondansetron Yes [id number] 4mg Take 1 [facility] (ZOFRAN 4-27 tablet by ity of ODT) 4 mg 00:00: mouth [place] disintegrat 00 every 8 Medic al ing tablet (eight) Branch hours as needed for Nausea and Vomiting (N/V). traZODone Yes [id number] 100mg Take 1 [facility] 100 mg 4-27 tablet ity of tablet 00:00: through [place] enteral Medical tube at Branch bedtime. aspirin 81 Yes [id number] 81mg Take 1 [facility] mg chewable 4-27 tablet ity of tablet 00:00: through [place] 00 enteral Medical tube Branch daily. atorvastati Yes [id number] 80mg Take 1 [facility] n 80 mg 4-27 tablet ity of tablet 00:00: through [place] 00 enteral Medical tube at Branch bedtime. ipratropium Yes [id number] 3mL Inhale 3 [facility] -albuteroL 4-27 mL every 6 ity of 0.5 mg-3 00:00: (six) [place] mg(2.5 mg 00 hours as Medica l base)/3 mL needed for [facility] nebulizer Wheezing solution or Shortness of Breath. acetaminoph 0 Yes [id number] 325mg Take 10.25 [facility] en 160 mg/5 4-27 mL through it y of mL liquid 00:00: enteral [place] 00 tube every Medical 6 (six) Branch hours as needed (pain, fever). pantoprazol 0 Yes [id number] 40mg Take 2 [facility] e 20 mg EC 4-27 tablets by ity of tablet 00:00: mouth [place] 00 daily. Medical Branch amLODIPine 0 Yes [id number] 5mg Take 1 [facility] 5 mg tablet 4-27 tablet ity of 00:00: through [place] enteral Medical tube Branch daily. calcitrioL 0 Yes [id number] .5ug Take 1 [facility] 0.5 mcg 4-27 capsule by ity of capsule 00:00: mouth [place] 00 daily. Medical Branch clopidogreL 0 Yes [id number] 75mg Take 1 [facility] 75 mg 4-27 tablet ity of tablet 00:00: through [place] enteral Medical tube Branch daily. escitalopra Yes [id number] 20mg Take 1 [facility] m oxalate 4-27 tablet ity of 20 mg 00:00: through [facility] 00 enteral Medical tube Branch daily. furosemide 0 Yes [id number] 40mg Take 1 [facility] 40 mg 4-27 tablet by ity of tablet 00:00: mouth [place] 00 every Medical morning Branch and evening. metFORMIN 0 Yes [id number] 500mg Take 1 [facility] 500 mg 4-27 tablet ity of tablet 00:00: through [place] enteral Medical tube 2 Branch (two) times daily with meals. ondansetron 0 Yes [id number] 4mg Take 1 [facility] (ZOFRAN 4-27 tablet by ity of ODT) 4 mg 00:00: mouth [place] disintegrat 00 every 8 Medic al ing tablet (eight) Branch hours as needed for Nausea and Vomiting (N/V). traZODone 0 Yes [id number] 100mg Take 1 [facility] 100 mg 4-27 tablet ity of tablet 00:00: through [place] 00 enteral Medical tube at Branch bedtime. aspirin 81 0 Yes [id number] 81mg Take 1 [facility] mg chewable 4-27 tablet ity of tablet 00:00: through [place] 00 enteral Medical tube Branch daily. atorvastati 2020-0 Yes [id number] 80mg Take 1 [facility] n 80 mg 4-27 tablet ity of tablet 00:00: through [place] enteral Medical tube at Branch bedtime. ipratropium 2020-0 Yes [id number] 3mL Inhale 3 [facility] -albuteroL 4-27 mL every 6 ity of 0.5 mg-3 00:00: (six) [place] mg(2.5 mg 00 hours as Medica l base)/3 mL needed for [facility] nebulizer Wheezing solution or Shortness of Breath. acetaminoph 2020-0 Yes [id number] 325mg Take 10.25 [facility] en 160 mg/5 4-27 mL through it y of mL liquid 00:00: enteral [place] 00 tube every Medical 6 (six) Branch hours as needed (pain, fever). pantoprazol 0 Yes [id number] 40mg Take 2 [facility] e 20 mg EC 4-27 tablets by ity of tablet 00:00: mouth [place] daily. Medical Branch amLODIPine 2020-0 Yes [id number] 5mg Take 1 [facility] 5 mg tablet 4-27 tablet ity of 00:00: through [place] enteral Medical tube Branch daily. calcitrioL 2020-0 Yes [id number] .5ug Take 1 [facility] 0.5 mcg 4-27 capsule by ity of capsule 00:00: mouth [place] daily. Medical Branch clopidogreL 2020-0 Yes [id number] 75mg Take 1 [facility] 75 mg 4-27 tablet ity of tablet 00:00: through [place] enteral Medical tube Branch daily. escitalopra 2020-0 Yes [id number] 20mg Take 1 [facility] m oxalate 4-27 tablet ity of 20 mg 00:00: through [place] tablet 00 enteral Medical tube Branch daily. furosemide 2020-0 Yes [id number] 40mg Take 1 [facility] 40 mg 4-27 tablet by ity of tablet 00:00: mouth [place] 00 every Medical morning Branch and evening. metFORMIN 2020-0 Yes [id number] 500mg Take 1 [facility] 500 mg 4-27 tablet ity of tablet 00:00: through [place] [address] enteral Medical tube 2 Branch (two) times daily with meals. ondansetron 2020-0 Yes [id number] 4mg Take 1 [facility] (ZOFRAN 4-27 tablet by ity of ODT) 4 mg 00:00: mouth [place] disintegrat 00 every 8 Medic al ing tablet (eight) Branch hours as needed for Nausea and Vomiting (N/V). traZODone 0 Yes [id number] 100mg Take 1 [facility] 100 mg 4-27 tablet ity of tablet 00:00: through enteral Medical tube at Branch bedtime. aspirin 81 0 Yes [id number] 81mg Take 1 [facility] mg chewable 4-27 tablet ity of tablet 00:00: through [place] enteral Medical tube Branch daily. atorvastati Yes [id number] 80mg Take 1 [facility] n 80 mg 4-27 tablet ity of tablet 00:00: through [place] enteral Medical tube at Branch bedtime. ipratropium 0 Yes [id number] 3mL Inhale 3 [facility] -albuteroL 4-27 mL every 6 ity of 0.5 mg-3 00:00: (six) [place] mg(2.5 mg 00 hours as Medica l base)/3 mL needed for [facility] nebulizer Wheezing solution or Shortness of Breath. acetaminoph Yes [id number] 325mg Take 10.25 [facility] en 160 mg/5 4-27 mL through it y of mL liquid 00:00: enteral [place] 00 tube every Medical 6 (six) Branch hours as needed (pain, fever). pantoprazol 0 Yes [id number] 40mg Take 2 [facility] e 20 mg EC 4-27 tablets by ity of tablet 00:00: mouth [place] 00 daily. Medical Branch amLODIPine 0 Yes [id number] 5mg Take 1 [facility] 5 mg tablet 4-27 tablet ity of 00:00: through [place] enteral Medical tube Branch daily. calcitrioL 2020-0 Yes [id number] .5ug Take 1 [facility] 0.5 mcg 4-27 capsule by ity of capsule 00:00: mouth [place] daily. Medical Branch clopidogreL 0 Yes [id number] 75mg Take 1 [facility] 75 mg 4-27 tablet ity of tablet 00:00: through [place] enteral Medical tube Branch daily. escitalopra 0 Yes [id number] 20mg Take 1 [facility] m oxalate 4-27 tablet ity of 20 mg 00:00: through [place] tablet 00 enteral Medical tube Branch daily. furosemide 2020-0 Yes [id number] 40mg Take 1 [facility] 40 mg 4-27 tablet by ity of tablet 00:00: mouth [place] 00 every Medical morning Branch and evening. metFORMIN 2020-0 Yes [id number] 500mg Take 1 [facility] 500 mg 4-27 tablet ity of tablet 00:00: through [place] 00 enteral Medical tube 2 Branch (two) times daily with meals. ondansetron 2020-0 Yes [id number] 4mg Take 1 [facility] (ZOFRAN 4-27 tablet by ity of ODT) 4 mg 00:00: mouth [place] disintegrat 00 every 8 Medic al ing tablet (eight) Branch hours as needed for Nausea and Vomiting (N/V). traZODone 2020-0 Yes [id number] 100mg Take 1 [facility] 100 mg 4-27 tablet ity of tablet 00:00: through 00 enteral Medical tube at Branch bedtime. aspirin 81 2020-0 Yes [id number] 81mg Take 1 [facility] mg chewable 4-27 tablet ity of tablet 00:00: through [place] 00 enteral Medical tube Branch daily. atorvastati 2020-0 Yes [id number] 80mg Take 1 [facility] n 80 mg 4-27 tablet ity of tablet 00:00: through 00 enteral Medical tube at Branch bedtime. ipratropium 2020-0 Yes [id number] 3mL Inhale 3 [facility] -albuteroL 4-27 mL every 6 ity of 0.5 mg-3 00:00: (six) [place] mg(2.5 mg 00 hours as Medica l base)/3 mL needed for [facility] nebulizer Wheezing solution or Shortness of Breath. acetaminoph 2020-0 Yes [id number] 325mg Take 10.25 [facility] en 160 mg/5 4-27 mL through it y of mL liquid 00:00: enteral [place] 00 tube every Medical 6 (six) Branch hours as needed (pain, fever). pantoprazol 2020-0 Yes [id number] 40mg Take 2 [facility] e 20 mg EC 4-27 tablets by ity of tablet 00:00: mouth [place] 00 daily. Medical Branch amLODIPine 2020-0 Yes [id number] 5mg Take 1 [facility] 5 mg tablet 4-27 tablet ity of 00:00: through [place] 00 enteral Medical tube Branch daily. calcitrioL 0 Yes [id number] .5ug Take 1 [facility] 0.5 mcg 4-27 capsule by ity of capsule 00:00: mouth [place] 00 daily. Medical Branch clopidogreL 0 Yes [id number] 75mg Take 1 [facility] 75 mg 4-27 tablet ity of tablet 00:00: through [place] 00 enteral Medical tube Branch daily. escitalopra Yes [id number] 20mg Take 1 [facility] m oxalate 4-27 tablet ity of 20 mg 00:00: through [facility] 00 enteral Medical tube Branch daily. furosemide Yes [id number] 40mg Take 1 [facility] 40 mg 4-27 tablet by ity of tablet 00:00: mouth [place] 00 every Medical morning Branch and evening. metFORMIN Yes [id number] 500mg Take 1 [facility] 500 mg 4-27 tablet ity of tablet 00:00: through [place] enteral Medical tube 2 Branch (two) times daily with meals. ondansetron Yes [id number] 4mg Take 1 [facility] (ZOFRAN 4-27 tablet by ity of ODT) 4 mg 00:00: mouth [place] disintegrat 00 every 8 Medic al ing tablet (eight) Branch hours as needed for Nausea and Vomiting (N/V). traZODone Yes [id number] 100mg Take 1 [facility] 100 mg 4-27 tablet ity of tablet 00:00: through [place] enteral Medical tube at Branch bedtime. aspirin 81 0 Yes [id number] 81mg Take 1 [facility] mg chewable 4-27 tablet ity of tablet 00:00: through [place] 00 enteral Medical tube Branch daily. atorvastati Yes [id number] 80mg Take 1 [facility] n 80 mg 4-27 tablet ity of tablet 00:00: through [place] enteral Medical tube at Branch bedtime. ipratropium 0 Yes [id number] 3mL Inhale 3 [facility] -albuteroL 4-27 mL every 6 ity of 0.5 mg-3 00:00: (six) [place] mg(2.5 mg 00 hours as Medica l base)/3 mL needed for [facility] nebulizer Wheezing solution or Shortness of Breath. acetaminoph Yes [id number] 325mg Take 10.25 [facility] en 160 mg/5 4-27 mL through it y of mL liquid 00:00: enteral [place] 00 tube every Medical 6 (six) Branch hours as needed (pain, fever). pantoprazol Yes [id number] 40mg Take 2 [facility] e 20 mg EC 4-27 tablets by ity of tablet 00:00: mouth [place] 00 daily. Medical Branch amLODIPine 0 Yes [id number] 5mg Take 1 [facility] 5 mg tablet 4-27 tablet ity of 00:00: through [place] enteral Medical tube Branch daily. calcitrioL Yes [id number] .5ug Take 1 [facility] 0.5 mcg 4-27 capsule by ity of capsule 00:00: mouth [place] 00 daily. Medical Branch clopidogreL Yes [id number] 75mg Take 1 [facility] 75 mg 4-27 tablet ity of tablet 00:00: through [place] enteral Medical tube Branch daily. escitalopra Yes [id number] 20mg Take 1 Univers m oxalate 4-27 tablet ity of 20 mg 00:00: through [facility] 00 enteral Medical tube Branch daily. furosemide Yes [id number] 40mg Take 1 Univers 40 mg 4-27 tablet by ity of tablet 00:00: mouth [place] 00 every Medical morning Branch and evening. metFORMIN Yes [id number] 500mg Take 1 Univers 500 mg 4-27 tablet ity of tablet 00:00: through [place] enteral Medical tube 2 Branch (two) times daily with meals. ondansetron Yes [id number] 4mg Take 1 Univers (ZOFRAN 4-27 tablet by ity of ODT) 4 mg 00:00: mouth [place] disintegrat 00 every 8 Medic al ing tablet (eight) Branch hours as needed for Nausea and Vomiting (N/V). traZODone Yes [id number] 100mg Take 1 Univers 100 mg 4-27 tablet ity of tablet 00:00: through [place] 00 enteral Medical tube at Branch bedtime. aspirin 81 0 Yes [id number] 81mg Take 1 Univers mg chewable 4-27 tablet ity of tablet 00:00: through [place] 00 enteral Medical tube Branch daily. atorvastati Yes [id number] 80mg Take 1 Univers n 80 mg 4-27 tablet ity of tablet 00:00: through [place] 00 enteral Medical tube at Branch bedtime. ipratropium Yes [id number] 3mL Inhale 3 Univers -albuteroL 4-27 mL every 6 ity of 0.5 mg-3 00:00: (six) [place] mg(2.5 mg 00 hours as Medica l base)/3 mL needed for [facility] nebulizer Wheezing solution or Shortness of Breath. metoprolol 2020- No [id number] 100mg Take 10 mL Univers 10 mg/mL 11-08 through ity of 00:00: 00:00 enteral [place] 00 :00 tube every Medical 12 Branch (twelve) hours. metoprolol 2020- No [id number] 100mg Take 10 mL Univers 10 mg/mL 11-08 through ity of 00:00: 00:00 enteral [place] 00 :00 tube every Medical 12 Branch (twelve) hours. pantoprazol 2020- No [id number] 40mg Take 20 mL Univers e 11-08 through ity of (PROTONIX) 00:00: 00:00 enteral [place] as 2 mg/mL 00 :00 tube Medical oral daily. Branch suspension gabapentin 2020- No [id number] 300mg Take 6 mL Univers 250 mg/5 [...] Until Discontinu ed, Routine iohexoL 2020- No [id number] 35mL 35 mL, Uni vers (OMNIPAQUE 11-07 Injection, it y of 300-50 mL)) 20:40: 21:03 TITRATE - [place] injection 00 :00 FOR Medical 35 mL PROCEDURE Branch USE, 1 dose, Starting Sat11/07/20 at 1540, Until Sat11/07/20 at 1603, Routine, Other ceFAZolin Yes Slow IV Unive rs (ANCEF) 11-07 Push, PRN, ity of injection 20:30: Starting [place] 46 [facility] Medical 11/07/20 at Branch 1530, Until Discontinu ed, KATHY lidocaine Yes PRN, Univers 1% (PF) 11-07 Starting ity of (XYLOCAINE) 20:27: Mon [place] injection 00 11/07/20 at [facility] 1527, Branch Until Discontinu ed, Routine iohexol 2020- No [id number] 100mL 100 mL, Univers (OMNIPAQUE 11-07 Oral, ity of 350 BULK) 14:45: 14:00 ONCE, 1 [place] 100 mL 00 :00 dose, [facility] Medical 11/07/20 at [place] 0945, KATHY gabapentin Yes 300mg 300 mg, Uni vers (NEURONTIN) 11-06 Enteral, ity of 250 mg/5 mL 01:00: TID, First [place] solution 00 dose on Medical 300 mg Sat [place] 11/05/20 at 2000, Until Discontinu ed, Routine HYDROcodone 2020- No 5mg 5 mg, Univ ers -acetaminop 11-05 Oral, ity of hen (HYCET) 20:07: 20:37 ONCE, 1 [place] 7.5-325 00 :00 dose, Sat Medical mg/15 mL 11/05/20 at [facility] h solution 5 1515, mg Routine acetaminoph Yes 325mg 325 mg, Un michael en 11-05 Enteral, ity of (TYLENOL) 20:06: Q6HPRN, [place] 160 mg/5 mL 54 Starting [facility] liquid 325 Sat [place] mg 11/05/20 at 1506, Until Discontinu ed, Routine, pain, fever Potassium 2020- No 20meq 20 mEq, Uni vers Bicarb-Citr 11-05 Enteral, ity of ic Acid 11:45: 14:22 ONCE, 1 [place] (EFFER-K) 00 :00 dose, Sat Medic al effervescen 11/05/20 at anch t tablet 20 0645, mEq Routine furosemide 2020- No 20mg 20 mg, Univ ers (LASIX) 11-04 Slow IV ity of injection 22:00: 23:28 Push, [place] 20 mg 00 :00 ONCE, 1 Medical dose, [facility] 11/04/20 at 1700, Routine metoprolol 2020- No 75mg 75 mg, Univ ers (LOPRESSOR) 11-04 Enteral, ity of 10 mg/mL 21:15: 18:40 Q12H ABX, You as oral 00 :26 First dose Medical suspension (after Branch 75 mg last modificati on) on Sat11/04/20 at 1615, Until Discontinu ed, Routine iohexol 2020- No [id number] 25mL 25 mL, Un michael (OMNIPAQUE 11-04 Oral, ity of 350 BULK) 14:30: 14:40 ONCE, 1 [place] 25 mL 00 :00 dose, Sat [facility] 11/04/20 at Branch 0930, KATHY cranberry Yes 1{tbl} Take 1 [place] [facility] ers fruit 11-03 tablet by ity of (CRANBERRY) 23:40: mouth [place] 450 mg Tab 55 daily. [facility] Branch furosemide 2020- No 20mg 20 mg, Univ ers (LASIX) 11-03 Slow IV ity of injection 21:58: 22:08 Push, [place] 20 mg 00 :00 ONCE, 1 Medical dose, Francie [place] 11/03/20 at 1700, Routine metoprolol 2020- No 75mg 75 mg, Univ ers (LOPRESSOR) 11-03 Enteral, ity of 10 mg/mL 01:00: 11:44 BID, First [place] oral 00 :22 dose Medical suspension (after Branch 75 mg last modificati on) on [facility] 11/02/20 at 2000, Until Discontinu ed, Routine lactulose 2020- No 15mL 15 mL, Unive rs (CEPHULAC) 11-03 Oral, BID, it y of solution 15 01:00: 02:18 First dose [place] mL 00 :17 on Sat [facility] 11/02/20 at Branch 2000, Until Discontinu ed, Routine metOLazone 2020- No 2.5mg 2.5 mg, Un michael (ZAROXOLYN [...] of ic Acid 19:15: 20:52 ONCE, 1 [place] (EFFER-K) 00 :00 dose, Sat Medic al [...] at 0000, Until Discontinu ed, Routine bacitracin- 0 Yes Topical, Un michael polymyxin B 11-01 [id number], ity of (POLYSPORIN 20:26: Starting [place] ) 41 Tue Medical 500-10,000 11/01/20 at [facility] unit/gram 1526, topical Until ointment Discontinu ed, Routine, rash Sliding 2020- No Subcutaneo Uni vers Scale 11-01 us, Q3H, ity of Insulin - 04:00: 04:13 First dose [place] Lispro 00 :59 (after Medical (HumaLOG) + last Branch Fsbg modificati Testing on) on 4/19/21 at 2300, Until Discontinu ed, Routine D5W IV 2020- No 1000mL at 70 Univers infusion 11-01 04-20 mL/hr, IV ity o f 1,000 mL 03:15: 13:03 Infusion, You as 00 :39 CONTINUOUS Medical , Starting Branch [facility] 10/31/20 at 2215, Until Sat11/01/20 at 0803, Routine insulin Yes 14U 14 Units, Unive rs glargine 10-31 Subcutaneo ity o f (LANTUS 14:00: us, DAILY, [place] U-100) 00 First dose Medical injection (after Branch 14 Units last modificati on) on [facility] 10/31/20 at 0900, Until Discontinu ed, Routine Potassium 2020- No 40meq 40 mEq, Uni vers Bicarb-Citr 10-31 Enteral, ity of ic Acid 13:15: 13:13 ONCE, 1 [place] (EFFER-K) 00 :00 dose, [facility] Medic al effervescen 10/31/20 at Br anch t tablet 40 0815, mEq Routine furosemide 2020- No 20mg 20 mg, Univ ers (LASIX) 10-31 Slow IV ity of injection 05:45: 08:40 Push, [place] 20 mg 00 :00 ONCE, 1 Medical dose, [facility] 10/31/20 at 0045, Routine insulin Yes 4U 4 Units, Univer s lispro 10-30 Subcutaneo ity of (human) 22:00: us, TID [place] (HumaLOG 00 MEALS, Medical U-100) First dose Branch injection 4 (after Units last modificati on) on [place] 10/30/20 at 1700, Until Discontinu ed, Routine Sliding 2020-2020- No Subcutaneo Uni vers Scale 10-30 04-20 us, Q4H, ity of Insulin - 21:00: 02:25 First dose [place] Lispro 00 :53 on [place] Medical (HumaLOG) + 10/30/20 at Br anch Fsbg 1600, Testing Until Discontinu ed, Routine ferrous Yes 300mg 300 mg, Univer s sulfate 300 10-30 Enteral, Q it y of mg (60 mg 14:00: OTHERDAY, You as iron)/5 mL 00 First dose Med ical solution on Sun Branch 300 mg 10/30/20 at 0900, Until Discontinu ed, Routine insulin No 6U 6 Units, Unive rs glargine 10-30 Subcutaneo ity of (LANTUS 14:00: 19:53 us, DAILY, You as U-100) 00 :49 First dose Medical injection 6 (after Branch Units last modificati on) on [place] 10/30/20 at 0900, Until Discontinu ed, Routine metoprolol No 50mg 50 mg, Univ ers (LOPRESSOR) 10-30 Enteral, ity of 10 mg/mL 13:00: 16:55 BID, First [place] oral 00 :29 dose Medical suspension (after Branch 50 mg last modificati on) on [place] 10/30/20 at 0800, Until Discontinu ed, Routine insulin No 2U 2 Units, Unive rs lispro 10-30 Subcutaneo ity of (human) 13:00: 19:53 us, TID [place] (HumaLOG 00 :49 MEALS, Medical U-100) First dose Branch injection 2 on [place] Units 10/30/20 at 0800, Until Discontinu ed, Routine Potassium 2020- No 20meq 20 mEq, Uni vers Bicarb-Citr 10-30 Enteral, ity of ic Acid 07:15: 06:24 ONCE, 1 [place] (EFFER-K) 00 :00 dose, [place] Medic al effervescen 10/30/20 at Br anch [...] last Branch 37.5 mg modificati on) on 10/29/20 at 2000, Until Discontinu ed, Routine metoprolol 2020- No 5mg 5 mg, Slow Univers (LOPRESSOR) 10-29 IV Push, ity of injection 5 21:00: 20:08 ONCE, 1 [place] mg 00 :00 dose, Sat Medical 10/29/20 at Branch 1600, Routine acetaminoph 2020- No 325mg 325 mg, U nivers en 10-29 Enteral, ity of (TYLENOL) 20:00: 20:08 Q6HPRN, [...] 2020- No 12U/kg/ 12 Univer s 25,000 10-29- h Units/kg/h ity of Units/250 14:54: 19:36 [...] No 250mL at 100 Uni vers (1/2NS) 10-2918 mL/hr, 250 ity o f bolus 11:15: 11:59 mL, IV [place] infusion 00 :32 Piggyback, Medic al 250 mL ONCE, 1 Branch dose, 10/29/20 at 0615, KATHY Potassium 2020- No 40meq 40 mEq, Uni vers Bicarb-Citr 10-29 Oral, ity of ic Acid 05:45: 05:07 ONCE, 1 [place] (EFFER-K) 00 :00 dose, Sat Medic al effervescen 4/17/21 at Br anch t tablet 40 0045, mEq Routine KCL 2020- No 40meq 40 mEq, IV Unive rs (POTASSIUM 10-29 Piggyback, it y of CHLORIDE) 04:30: 04:33 ONCE, 1 [place] 40 mEq in 00 :00 dose, Fri Medic al NaCl 0.9% 10/28/20 at Bran ch (NS) 2330, 250 piggyback mL sulfur 2020- No [id number] 4mL 4 mL, Univ ers hexafluorid 10-28 Intravenou i ty of e microsphr 21:00: 21:00 s, ONCE, 1 [place] (LUMASON) 00 :00 dose, Fri Medic al injection 4 10/28/20 at Br anch mL 1600, Routine
meat service team member approving Restricted medication : KISHORE ROSS SALAM sodium No 4mL 4 mL, Univers [...] swallow or has mental status changes. piperacilli 2020- No 3.375g 3.375 g, Univers n-tazobacta 10-28 [...]
Durat ion of therapy: 7 days acetaminoph No 650mg 650 mg, U nivers en 10-28 Enteral, ity of (TYLENOL) 14:04: 19:50 Q4HPRN, [place] 160 mg/5 mL 58 :04 Starting Medi lizzy liquid 650 Fri Branch mg 10/28/20 at 0904, Until 10/29/20 at 1450, Routine, fever Sliding Subcutaneo Uni vers Scale 10-27 us, Q3H, [...] mg 00 :00 NOW, 1 Medical dose, Sat Branch 10/27/20 at 0145, Routine metoprolol 2020- No 2.5mg 2.5 mg, Un michael (LOPRESSOR) 10-27 Intravenou i ty of injection 05:00: 05:04 s, Q6H, 1 [place] 2.5 mg 00 :00 dose, Medical First dose Branch (after last modificati on) on Francie 10/27/20 at 0000, Routine amLODIPine No 5mg 5 mg, Unive rs benzoate 10-27 Oral, ity of (KATERZIA) 02:15: 17:26 DAILY, [place] 1 mg/mL 00 :04 First dose Medica l oral on Sat Branch suspension 4/14/21 at 5 mg 2115, Until Discontinu ed, Routine traZODone 2020- No 100mg 100 mg, Uni vers (COMPOUNDED 10-27-16 Enteral, ity of ) oral 02:15: 13:45 [...] 1,000 mL Infusion, Branch CONTINUOUS , Starting 10/26/20 at 1945, Until Francie 10/27/20 at 0620, Routine D5W 0.45% 2020- No 1000mL at 200 Uni vers NaCl 10-26-14 mL/hr, ity of (1/2NS) IV 19:45: 22:13 1,000 mL, [place] infusion 00 :00 IV Medical 1,000 mL Infusion, Branch ONCE, 1 dose, 10/26/20 at 1445, Routine NaCl 0.45% 2020- No 1000mL at 200 Un michael (1/2NS) IV 10-26-14 mL/hr, ity of infusion 13:15: 17:00 1,000 mL, You as 1,000 mL 00 :00 IV Medical Infusion, Branch ONCE, 1 dose, 10/26/20 at 0815, Routine KCL No 30meq 30 mEq, IV Unive rs (POTASSIUM 10-2614 Piggyback, it y of CHLORIDE) 12:30: 13:26 ONCE, 1 [place] 30 mEq in 00 :00 dose, Wed Medic al NaCl 0.9% 10/26/20 at Bran ch (NS) 0730, 250 piggyback mL metoprolol 2020- No 2.5mg 2.5 mg, Un michael (LOPRESSOR) 10-25-15 Intravenou i ty of injection 23:00: 02:04 s, Q6H, [place] 2.5 mg 00 :18 First dose Medical (after Branch last modificati on) on 10/25/20 at 1800, Until Discontinu ed, Routine metoprolol No 5mg 5 mg, [place] [facility] (L[facility]ESSOR) 10-25 Intravenou i ty of injection 5 21:00: 20:00 s, ONCE, 1 [place] mg 00 :00 dose, [facility] 10/25/20 at Branch 1600, Routine sodium No 4mL 4 mL, Univers chloride 7% 10-25 Inhalation i ty of (HYPER-JOSE) 16:15: 14:04 , BID, You as nebulizer 00 :03 First dose Medi lizzy solution 4 on Sat [place] mL 10/25/20 at 1115, Until Discontinu ed, Routine ampicillin No 2000mg 2,000 mg, Univers (POLYCILLIN 10-25 IV ity of -N) 2,000 16:15: 14:06 Piggyback, [place] mg in NaCl 00 :40 Q8H ABX, Medic al 0.9% (NS) First dose Bran ch 100 mL on [facility] MINI-BAG 10/25/20 at 1115, Until Discontinu ed, 100 mL
R russ for Anti-Infec tive: Documented Infection< br>Documen tennille Infection Site: Urine<br&g t;Duration of Therapy: 7 days lactulose No 45mL 45 mL, [facility] [place] [facility] rs (CEPHULAC) 10-25 Enteral, ity of solution 45 16:15: 15:35 ONCE, 1 [place] mL 00 :00 dose, [facility] 10/25/20 at Branch 1115, Routine ipratropium 2020- No 3mL 3 mL, Univ ers -albuteroL 10-25 Inhalation it y of (DUONEB) 16:13: 16:16 , QIDPRN, You as 0.5 mg-3 26 :25 Starting Medical mg(2.5 mg [facility] base)/3 mL 10/25/20 at nebulizer 1113, solution 3 Until Sat mL 10/29/20 at 1116, Routine, Wheezing sennosides- Yes 1{tbl} 1 tablet, Univers docusate 10-25 Enteral, ity of sodium 15:15: DAILY, [place] (SENOKOT-S) 00 First dose Me dical 8.6-50 mg on Sat Branch per tablet 10/25/20 at 1 tablet 1015, [...] dose Bran ch (NS) 250 mL on Sat VIAL-MATE 10/24/20 at IV 2030, Last piggyback dose on Sat10/26/20 at 2030, 250 mL
Reas on for Anti-Infec tive: Empiric Therapy for Suspected Infection< br>Empiric Therapy Site: Respirator y
Durat ion of therapy: 72 hours metoprolol 2020- No 12.5mg 12.5 mg, Univers tartrate 10-25 Oral, BID, ity of (LOPRESSOR) 01:00: 20:17 First dose [place] half tablet 00 :28 on Sat Medica l 12.5 mg 10/24/20 at Branch 1999, Until Discontinu ed, Routine dexMEDEtomi 2020- No [...] maximum allowed dose, contact prescriber .
polyethylen 17g 17 g, Univ ers e glycol 10-24 Oral, ity of 3350 powder 19:30: 20:17 DAILY, You as 17 g 00 :44 First dose Medical on [facility] 10/24/20 at 1430, Until Discontinu ed, Routine vancomycin No 15mg/kg 1,000 mg Univers (VANCOCIN) 10-23 (rounded ity of 1,000 mg in 18:30: 00:35 from 919.5 [place] NaCl 0.9% 00 :47 mg = 15 Medical (NS) 250 mL mg/kg Branch VIAL-MATE ?61.3 kg), IV IV piggyback Piggyback, Q24H ABX, First dose (after last modificati on) on [place] 10/23/20 at 1330, Until Discontinu ed, 250 mL
Reas on for Anti-Infec tive: Empiric Therapy for Suspected Infection< br>Empiric Therapy Site: Respirator y
Durat ion of therapy: 72 hours aspirin Yes 81mg 81 mg, Univers chewable 10-23 Oral, ity of tablet 81 14:00: DAILY, [place] mg 00 First dose Medical on [facility] 10/23/20 at 0900, Until Discontinu ed, Routine pantoprazol No 40mg 40 mg, IV Univers e 10-23 Piggyback, ity of (PROTONIX) 13:00: 14:12 Q12H, [place] 40 mg in 00 :01 First dose Medic al NaCl 0.9% on [facility] (NS) 100 mL 10/23/20 at MINI-BAG 0800, Until Discontinu ed, 100 mL Sliding No Subcutaneo Uni vers Scale 10-23 us, TID ity of Insulin - 13:00: 12:58 MEALS+HS, [place] Lispro 00 :53 First dose Medical (HumaLOG) + on [facility] Fsbg 10/23/20 at Testing 0800, Until Discontinu ed, Routine potassium No 40meq 40 mEq, IV Univers chloride in 10-23 Piggyback, i ty of water (KCL) 10:30: 10:30 ONCE, 1 [place] 40 mEq/100 00 :00 dose, [facility] lizzy mL 40 mEq 10/23/20 at Bran ch piggyback 0530 meropenem 2020- No 500mg [...] Sat Branch 10/22/20 at 1915, Routine pantoprazol 2020- No 8mg/h 8 mg/hr U nivers e 10-22 (50 ity of (PROTONIX) 20:45: 10:08 mL/hr), IV [place] 80 mg in 00 :37 Infusion, Medica l NaCl 0.9% CONTINUOUS Bran ch (NS) 500 mL , Starting infusion 10/22/20 at 1545 iron No 1000mg 1,000 mg, Unive rs dextran [...] mg in NaCl 00 :00 dose, Sat Medi lizzy 0.9% (NS) 10/22/20 at Bran ch 100 mL IV 1545, 100 piggyback mL meropenem 2020- No 500mg 500 mg, IV Univers (MERREM) 10-22 Piggyback, ity of 500 mg in 18:45: [...] 1,000 mg in 18:45: 21:13 from 919.5 [place] NaCl 0.9% 00 :00 mg = 15 Medical (NS) 250 mL mg/kg Branch VIAL-MATE ?61.3 kg), IV IV piggyback Piggyback, ONCE, 1 dose, 10/22/20 at 1345, 250 mL
Reas on for Anti-Infec tive: Empiric Therapy for Suspected Infection< br>Empiric Therapy Site: Respirator y
Durat ion of therapy: 72 hours propofoL IV 2020- No 5ug/kg/ 5-50 Un michael infusion 10-22-15 min mcg/kg/min ity of 18:20: 12:12 ?61.3 kg [place] 00 :42 (1.839-18. Medical 39 mL/hr, Branch [...] 20mg Take 20 mg Univers m oxalate 410 by mouth ity of 20 mg 16:24: daily. [place] tablet 17 [facility] Branch traZODone Yes 100mg Take 100 Uni vers 100 mg 4-10 mg by ity of tablet 16:24: mouth at [place] [address] bedtime. [facility] Branch insulin NPH No inject Uni vers hum/reg 10-22 04-10 under the ity of insulin hm 16:24: 00:00 skin. [place] (NOVOLIN 17 :00 Medical 70/30 SC) [place] glucagon Yes 1mg 1 mg, [facility] (GLUCAGEN 10-22 Intramuscu ity of DIAGNOSTIC 16:21: lar, PRN, [place] KIT) 56 Starting Medical injection 1 Sat Branch mg 10/22/20 at 1121, Until Discontinu ed, KATHY, Blood Glucose < or = 70 mg/dL and patient is unable to swallow or has mental changes. insulin 2021- No 5U inject 5 Unive rs lispro 100 07-29-16 Units ity of unit/mL pen 00:00: 05:59 under the [place] injector 00 :00 skin 3 Medical (three) Branch times daily. insulin 2021- No 5U inject 5 Unive rs lispro 100 07-29-16 Units ity of unit/mL pen 00:00: 05:59 under the [place] injector 00 :00 skin 3 Medical (three) Branch times daily. insulin 2021- No 5U inject 5 Unive rs lispro 100 07-29-16 Units ity of unit/mL pen 00:00: 05:59 under the [place] injector 00 :00 skin 3 Medical (three) [...] gabapentin 2019-07 Yes 300mg Take 300 Un michael 300 mg 2-21 mg by ity of capsule 00:00: mouth 3 [place] 00 (three) Medical times Branch daily. gabapentin [...] 2-03 tablet by ity of 00:00: mouth [place] 00 daily. Medical Branch calcitrioL 2019-07 Yes 1{capsu Take 1 Un michael 0.5 mcg 2-03 le} capsule by ity of capsule 00:00: mouth [place] 00 daily. Medical Branch insulin 2019-07 Yes [...] Units ity of (LANTUS 00:00: under the [place] U-100 00 skin Medical INSULIN) daily. Branch [...] the ity of insulin hm 21:24: skin. [place] (NOVO[address] 70/30 NM) Branch escitalopra 2019-07 Yes 20mg Take 20 mg Univers m oxalate 0-20 by mouth ity of 20 mg 21:24: daily. [place] tablet 44 Medical Branch traZODone 2019-07 Yes 100mg Take 100 Uni vers 100 mg 0-20 mg by ity of tablet 21:24: mouth at [place] [address] bedtime. Medical Branch insulin NPH 2019-07 Yes inject Univ ers hum/reg 0-20 under the ity of insulin hm 21:24: skin. [place] (NOVO[address] 70/30 NM) Branch escitalopra 2019-07 Yes 20mg Take 20 mg Univers m oxalate 0-20 by mouth ity of 20 mg 21:24: daily. [facility] 44 Medical Branch traZODone 2019-07 Yes 100mg Take 100 Uni vers 100 mg 0-20 mg by ity of tablet 21:24: mouth at [place] [address] bedtime. Medical Branch insulin NPH 2019-07 Yes inject Univ ers hum/reg 0-20 under the ity of insulin hm 21:24: skin. [place] (NOVO[address] 70/30 NM) Branch escitalopra 2019-07 Yes 20mg Take 20 mg Univers m oxalate 0-20 by mouth ity of 20 mg 21:24: daily. [facility] 44 Medical Branch traZODone 2019-07 Yes 100mg Take 100 Uni vers 100 mg 0-20 mg by ity of tablet 21:24: mouth at [place] [address] bedtime. Medical Branch metFORMIN Yes [id number] 500mg Take 1 Univers 500 mg 4-16 tablet by ity of tablet 00:00: mouth 2 [place] 00 (two) Medical times Branch daily with meals. ondansetron 2020-0 Yes [id number] 4mg Take 1 Univers (ZOFRAN 4-16 tablet by ity of ODT) 4 mg 00:00: mouth [place] disintegrat 00 every 8 Medic al ing tablet (eight) Branch hours as needed for Nausea and Vomiting (N/V). metFORMIN 2020-0 Yes [id number] 500mg Take 1 Univers 500 mg 4-16 tablet by ity of tablet 00:00: mouth (two) Medical times Branch daily with meals. ondansetron 2020-0 Yes [id number] 4mg Take 1 Univers (ZOFRAN 4-16 tablet by ity of ODT) 4 mg 00:00: mouth [place] disintegrat 00 every 8 Medic al ing tablet (eight) Branch hours as needed for Nausea and Vomiting (N/V). metFORMIN 2020-0 Yes [id number] 500mg Take 1 Univers 500 mg 4-16 tablet by ity of tablet 00:00: mouth (two) Medical times Branch daily with meals. ondansetron 2020-0 Yes [id number] 4mg Take 1 Univers (ZOFRAN 4-16 tablet by ity of ODT) 4 mg 00:00: mouth [place] disintegrat 00 every 8 Medic al ing tablet (eight) Branch hours as needed for Nausea and Vomiting (N/V). metFORMIN 2020-0 Yes [id number] 500mg Take 1 Univers 500 mg 4-16 tablet by ity of tablet 00:00: mouth (two) Medical times Branch daily with meals. ondansetron 2020-0 Yes [id number] 4mg Take 1 Univers (ZOFRAN 4-16 tablet by ity of ODT) 4 mg 00:00: mouth [place] disintegrat 00 every 8 Medic al ing tablet (eight) Branch hours as needed for Nausea and Vomiting (N/V). metFORMIN 2020-0 Yes [id number] 500mg Take 1 Univers 500 mg 4-16 tablet by ity of tablet 00:00: mouth (two) Medical times Branch daily with meals. ondansetron 2020-0 Yes [id number] 4mg Take 1 Univers (ZOFRAN 4-16 tablet by ity of ODT) 4 mg 00:00: mouth [place] disintegrat 00 every 8 Medic al ing tablet (eight) Branch hours as needed for Nausea and Vomiting (N/V). metFORMIN 2020-0 Yes [id number] 500mg Take 1 Univers 500 mg 4-16 tablet by ity of tablet 00:00: mouth 2 (two) Medical times Branch daily with meals. ondansetron 2020-0 Yes [id number] 4mg Take 1 Univers (ZOFRAN 4-16 tablet by ity of ODT) 4 mg 00:00: mouth [place] disintegrat 00 every 8 Medic al ing tablet (eight) Branch hours as needed for Nausea and Vomiting (N/V). metFORMIN 2020-0 Yes [id number] 500mg Take 1 Univers 500 mg 4-16 tablet by ity of tablet 00:00: mouth (two) Medical times Branch daily with meals. ondansetron 2020-0 Yes [id number] 4mg Take 1 Univers (ZOFRAN 4-16 tablet by ity of ODT) 4 mg 00:00: mouth [place] disintegrat 00 every 8 Medic al ing tablet (eight) Branch hours as needed for Nausea and Vomiting (N/V). metFORMIN 2020-0 Yes [id number] 500mg Take 1 Univers 500 mg 4-16 tablet by ity of tablet 00:00: mouth (two) Medical times Branch daily with meals. ondansetron 2020-0 Yes [id number] 4mg Take 1 Univers (ZOFRAN 4-16 tablet by ity of ODT) 4 mg 00:00: mouth [place] disintegrat 00 every 8 Medic al ing tablet (eight) Branch hours as needed for Nausea and Vomiting (N/V). metFORMIN 2020-0 Yes [id number] 500mg Take 1 Univers 500 mg 4-16 tablet by ity of tablet 00:00: mouth (two) Medical times Branch daily with meals. ondansetron 2020-0 Yes [id number] 4mg Take 1 Univers (ZOFRAN 4-16 tablet by ity of ODT) 4 mg 00:00: mouth [place] disintegrat 00 every 8 Medic al ing tablet (eight) Branch hours as needed for Nausea and Vomiting (N/V). metFORMIN 2020-0 Yes [id number] 500mg Take 1 Univers 500 mg 4-16 tablet by ity of tablet 00:00: mouth 2 (two) Medical times Branch daily with meals. ondansetron 2020-0 Yes [id number] 4mg Take 1 Univers (ZOFRAN 4-16 tablet by ity of ODT) 4 mg 00:00: mouth [place] disintegrat 00 every 8 Medic al ing tablet (eight) Branch hours as needed for Nausea and Vomiting (N/V). metFORMIN 2020-0 Yes [id number] 500mg Take 1 Univers 500 mg 4-16 tablet by ity of tablet 00:00: mouth 2 [place] 00 (two) Medical times Branch daily with meals. ondansetron 2020-0 Yes [id number] 4mg Take 1 Univers (ZOFRAN 4-16 tablet by ity of ODT) 4 mg 00:00: mouth [place] disintegrat 00 every 8 Medic al ing tablet (eight) Branch hours as needed for Nausea and Vomiting (N/V). metFORMIN 2020-0 Yes [id number] 500mg Take 1 Univers 500 mg 4-16 tablet by ity of tablet 00:00: mouth 2 [place] (two) Medical times Branch daily with meals. ondansetron 2020-0 Yes [id number] 4mg Take 1 Univers (ZOFRAN 4-16 tablet by ity of ODT) 4 mg 00:00: mouth [place] disintegrat 00 every 8 Medic al ing tablet (eight) Branch hours as needed for Nausea and Vomiting (N/V). metFORMIN 2020-0 Yes [id number] 500mg Take 1 Univers 500 mg 4-16 tablet by ity of tablet 00:00: mouth 2 (two) Medical times Branch daily with meals. ondansetron 2020-0 Yes [id number] 4mg Take 1 Univers (ZOFRAN 4-16 tablet by [facility] ODT) 4 mg 00:00: mouth [place] disintegrat 00 every 8 Medic al ing tablet (eight) Branch hours as needed for Nausea and Vomiting (N/V). metFORMIN 2020-0 Yes [id number] 500mg Take 1 [facility] 500 mg 4-16 tablet by [facility] of tablet 00:00: mouth 2 (two) Medical times Branch daily with meals. ondansetron 2020-0 Yes [id number] 4mg Take 1 [facility] (ZOFRAN 4-16 tablet by [facility] of ODT) 4 mg 00:00: mouth [place] disintegrat 00 every 8 Medic al ing tablet (eight) Branch hours as needed for Nausea and Vomiting (N/V). metFORMIN 2020-0 Yes [id number] 500mg Take 1 [facility] 500 mg 4-16 tablet by [facility] of tablet 00:00: mouth 2 (two) Medical times Branch daily with meals. ondansetron 2020-0 Yes [id number] 4mg Take 1 [facility] (ZOFRAN 4-16 tablet by [facility] of ODT) 4 mg 00:00: mouth [place] disintegrat 00 every 8 Medic al ing tablet (eight) Branch hours as needed for Nausea and Vomiting (N/V). metFORMIN 2020-0 Yes [id number] 500mg Take 1 [facility] 500 mg 4-16 tablet by [facility] of tablet 00:00: mouth 2 [place] (two) Medical times Branch daily with meals. ondansetron 2020-0 Yes [id number] 4mg Take 1 [facility] (ZOFRAN 4-16 tablet by [facility] of ODT) 4 mg 00:00: mouth [place] disintegrat 00 every 8 Medic al ing tablet (eight) Branch hours as needed for Nausea and Vomiting (N/V). metFORMIN 2020-0 Yes [id number] 500mg Take 1 [facility] 500 mg 4-16 tablet by [facility] of tablet 00:00: mouth (two) Medical times Branch daily with meals. ondansetron 2020-0 Yes [id number] 4mg Take 1 [facility] (ZOFRAN 4-16 tablet by [facility] of ODT) 4 mg 00:00: mouth [place] disintegrat 00 every 8 Medic al ing tablet (eight) Branch hours as needed for Nausea and Vomiting (N/V). metFORMIN 2020-0 Yes [id number] 500mg Take 1 [facility] 500 mg 4-16 tablet by [facility] of tablet 00:00: mouth (two) Medical times Branch daily with meals. ondansetron 2020-0 Yes [id number] 4mg Take 1 [facility] (ZOFRAN 4-16 tablet by [facility] of ODT) 4 mg 00:00: mouth [place] disintegrat 00 every 8 Medic al ing tablet (eight) Branch hours as needed for Nausea and Vomiting (N/V). metFORMIN 2020-0 Yes [id number] 500mg Take 1 [facility] 500 mg 4-16 tablet by [facility]y of tablet 00:00: mouth 2 [place] (two) Medical times Branch daily with meals. ondansetron 2020-0 Yes [id number] 4mg Take 1 [facility] (ZOFRAN 4-16 tablet by [facility] of ODT) 4 mg 00:00: mouth [place] disintegrat 00 every 8 Medic al ing tablet (eight) Branch hours as needed for Nausea and Vomiting (N/V). metFORMIN 2020-0 Yes [id number] 500mg Take 1 [facility] 500 mg 4-16 tablet by [facility] of tablet 00:00: mouth 2 [place] (two) Medical times Branch daily with meals. ondansetron 2020-0 Yes [id number] 4mg Take 1 [facility] (ZOFRAN 4-16 tablet by [facility] of ODT) 4 mg 00:00: mouth [place] disintegrat 00 every 8 Medic al ing tablet (eight) Branch hours as needed for Nausea and Vomiting (N/V). metFORMIN 2020-0 Yes [id number] 500mg Take 1 [facility] 500 mg 4-16 tablet by [facility] of tablet 00:00: mouth 2 [place] (two) Medical times Branch daily with meals. ondansetron 2020-0 Yes [id number] 4mg Take 1 [facility] (ZOFRAN 4-16 tablet by [facility] of ODT) 4 mg 00:00: mouth [place] disintegrat 00 every 8 Medic al ing tablet (eight) Branch hours as needed for Nausea and Vomiting (N/V). metFORMIN 2020-0 Yes [id number] 500mg Take 1 [facility] 500 mg 4-16 tablet by [facility]y of tablet 00:00: mouth (two) Medical times Branch daily with meals. ondansetron 2020-0 Yes [id number] 4mg Take 1 [facility] (ZOFRAN 4-16 tablet by [facility] of ODT) 4 mg 00:00: mouth [place] disintegrat 00 every 8 Medic al ing tablet (eight) Branch hours as needed for Nausea and Vomiting (N/V). metFORMIN 2020-0 Yes [id number] 500mg Take 1 [facility] 500 mg 4-16 tablet by [facility] of tablet 00:00: mouth 2 (two) Medical times Branch daily with meals. ondansetron 2020-0 Yes [id number] 4mg Take 1 [facility] (ZOFRAN 4-16 tablet by [facility] of ODT) 4 mg 00:00: mouth [place] disintegrat 00 every 8 Medic al ing tablet (eight) Branch hours as needed for Nausea and Vomiting (N/V). metFORMIN 2020-0 Yes [id number] 500mg Take 1 [facility] 500 mg 4-16 tablet by [facility] of tablet 00:00: mouth (two) Medical times Branch daily with meals. ondansetron 2020-0 Yes [id number] 4mg Take 1 [facility] (ZOFRAN 4-16 tablet by [facility] of ODT) 4 mg 00:00: mouth [place] disintegrat 00 every 8 Medic al ing tablet (eight) Branch hours as needed for Nausea and Vomiting (N/V). metFORMIN 2020-0 Yes [id number] 500mg Take 1 [facility] 500 mg 4-16 tablet by [facility] of tablet 00:00: mouth (two) Medical times Branch daily with meals. ondansetron 2020-0 Yes [id number] 4mg Take 1 [facility] (ZOFRAN 4-16 tablet by [facility] of ODT) 4 mg 00:00: mouth [place] disintegrat 00 every 8 Medic al ing tablet (eight) Branch hours as needed for Nausea and Vomiting (N/V). metFORMIN 2020-0 Yes [id number] 500mg Take 1 [facility] 500 mg 4-16 tablet by [facility] of tablet 00:00: mouth (two) Medical times Branch daily with meals. ondansetron 2020-0 Yes [id number] 4mg Take 1 [facility] (ZOFRAN 4-16 tablet by [facility] of ODT) 4 mg 00:00: mouth [place] disintegrat 00 every 8 Medic al ing tablet (eight) Branch hours as needed for Nausea and Vomiting (N/V). metFORMIN 2020-0 Yes [id number] 500mg Take 1 [facility] 500 mg 4-16 tablet by [facility] of tablet 00:00: mouth (two) Medical times Branch daily with meals. ondansetron 2020-0 Yes [id number] 4mg Take 1 [facility] (ZOFRAN 4-16 tablet by [facility] of ODT) 4 mg 00:00: mouth [place] disintegrat 00 every 8 Medic al ing tablet (eight) Branch hours as needed for Nausea and Vomiting (N/V). metFORMIN 2020-0 Yes [id number] 500mg Take 1 [facility] 500 mg 4-16 tablet by [facility] of tablet 00:00: mouth 2 (two) Medical times Branch daily with meals. ondansetron 2020-0 Yes [id number] 4mg Take 1 [facility] (ZOFRAN 4-16 tablet by [facility] of ODT) 4 mg 00:00: mouth [place] disintegrat 00 every 8 Medic al ing tablet (eight) Branch hours as needed for Nausea and Vomiting (N/V). metFORMIN Yes [id number] 500mg Take 1 [facility] 500 mg 4-16 tablet by [facility] of tablet 00:00: mouth 2 [place] 00 (two) Medical times Branch daily with meals. ondansetron Yes [id number] 4mg Take 1 [facility] (ZOFRAN 4-16 tablet by [facility] of ODT) 4 mg 00:00: mouth [place] disintegrat 00 every 8 Medic al ing tablet (eight) Branch hours as needed for Nausea and Vomiting (N/V). metFORMIN 2020- No [id number] 500mg Take 1 [facility] 500 mg 4-16 04-27 tablet by ity of tablet 00:00: 00:00 mouth 2 [place] 00 :00 (two) Medical times Branch daily with meals. ondansetron 2020- No [id number] 4mg Take 1 [facility] (ZOFRAN 4-16 04-27 tablet by [facility] of ODT) 4 mg 00:00: 00:00 mouth [place] disintegrat 00 :00 every 8 Medic al ing tablet (eight) Branch hours as needed for Nausea and Vomiting (N/V). metFORMIN 2020- No [id number] 500mg Take 1 [facility] 500 mg 4-16 04-27 tablet by it[facility] of tablet 00:00: 00:00 mouth 2 [place] 00 :00 (two) Medical times Branch daily with meals. ondansetron 2020- No [id number] 4mg Take 1 [facility] (ZOFRAN 4-16 04-27 [...] (two) Branch [facility]) times daily. atorvastati Yes 80mg 80 mg, Univ ers n (LIPITOR) 4-15 Oral, QHS, it y of tablet 80 02:00: First dose [place] mg 00 on [facility] 10/27/19 at Branch 2100, Until Discontinu ed, Routine amoxicillin 2020-0 Yes [id number] 500mg Take 1 [facility] 500 mg 4-15 capsule by ity of capsule 00:00: mouth 2 [place] 00 (two) Medical times Branch daily. Lactobacill 2020-0 Yes [id number] 1{tbl} Take 1 [facility] us 4-15 tablet by ity of Acidophilus 00:00: mouth 2 [place] as 1 billion 00 (two) Medical cell Tab times Branch daily. traMADol 50 2020-0 Yes [id number] 50mg Take 1 [facility] mg tablet 4-15 tablet by ity o f 00:00: mouth [place] 00 every 8 Medical (eight) Branch hours as needed for Pain (scale 7-10). amoxicillin 2020-0 Yes [id number] 500mg Take 1 [facility] 500 mg 4-15 capsule by ity of capsule 00:00: mouth 2 [place] 00 (two) Medical times Branch daily. Lactobacill 2020-0 Yes [id number] 1{tbl} Take 1 [facility] us 4-15 tablet by ity of Acidophilus 00:00: mouth 2 [facility] as 1 billion 00 (two) Medical cell Tab times Branch daily. traMADol 50 2020-0 Yes [id number] 50mg Take 1 [facility] mg tablet 4-15 tablet by ity o f 00:00: mouth [place] 00 every 8 Medical (eight) Branch hours as needed for Pain (scale 7-10). amoxicillin 2020-0 Yes [id number] 500mg Take 1 [facility] 500 mg 4-15 capsule by ity of capsule 00:00: mouth 2 [place] 00 (two) Medical times Branch daily. Lactobacill 2020-0 Yes [id number] 1{tbl} Take 1 [facility] us 4-15 tablet by ity of Acidophilus 00:00: mouth 2 [facility] 1 billion 00 (two) Medical cell Tab times Branch daily. traMADol 50 2020-0 Yes [id number] 50mg Take 1 [facility] mg tablet 4-15 tablet by ity o f 00:00: mouth [place] 00 every 8 Medical (eight) Branch hours as needed for Pain (scale 7-10). amoxicillin 2020-0 Yes [id number] 500mg Take 1 [facility] 500 mg 4-15 capsule by ity of capsule 00:00: mouth 2 [place] 00 (two) Medical times Branch daily. Lactobacill 2020-0 Yes [id number] 1{tbl} Take 1 [facility] us 4-15 tablet by ity of Acidophilus 00:00: mouth 2 [place] [facility] 1 billion 00 (two) Medical cell Tab times Branch daily. traMADol 50 2020-0 Yes [id number] 50mg Take 1 [facility] mg tablet 4-15 tablet by ity o f 00:00: mouth [place] 00 every 8 Medical (eight) Branch hours as needed for Pain (scale 7-10). amoxicillin 2020-0 Yes [id number] 500mg Take 1 [facility] 500 mg 4-15 capsule by ity of capsule 00:00: mouth 2 [place] 00 (two) Medical times Branch daily. Lactobacill 2020-0 Yes [id number] 1{tbl} Take 1 [facility] us 4-15 tablet by ity of Acidophilus 00:00: mouth 2 [facility] as 1 billion 00 (two) Medical cell Tab times Branch daily. traMADol 50 2020-0 Yes [id number] 50mg Take 1 [facility] mg tablet 4-15 tablet by ity o f 00:00: mouth [place] 00 every 8 Medical (eight) Branch hours as needed for Pain (scale 7-10). amoxicillin 2020-0 Yes [id number] 500mg Take 1 [facility] 500 mg 4-15 capsule by ity of capsule 00:00: mouth 2 [place] 00 (two) Medical times Branch daily. Lactobacill 2020-0 Yes [id number] 1{tbl} Take 1 [facility] us 4-15 tablet by ity of Acidophilus 00:00: mouth 2 [facility] as 1 billion 00 (two) Medical cell Tab times Branch daily. traMADol 50 2020-0 Yes [id number] 50mg Take 1 [facility] mg tablet 4-15 tablet by ity o f 00:00: mouth [place] 00 every 8 Medical (eight) Branch hours as needed for Pain (scale 7-10). amoxicillin 2020-0 Yes [id number] 500mg Take 1 [facility] 500 mg 4-15 capsule by ity of capsule 00:00: mouth 2 [place] 00 (two) Medical times Branch daily. Lactobacill 2020-0 Yes [id number] 1{tbl} Take 1 [facility] us 4-15 tablet by ity of Acidophilus 00:00: mouth 2 [facility] as 1 billion 00 (two) Medical cell Tab times Branch daily. traMADol 50 2020-0 Yes [id number] 50mg Take 1 [facility] mg tablet 4-15 tablet by ity o f 00:00: mouth [place] 00 every 8 Medical (eight) Branch hours as needed for Pain (scale 7-10). amoxicillin 2020-0 Yes [id number] 500mg Take 1 [facility] 500 mg 4-15 capsule by ity of capsule 00:00: mouth 2 00 (two) Medical times Branch daily. Lactobacill 2020-0 Yes [id number] 1{tbl} Take 1 [facility] us 4-15 tablet by ity of Acidophilus 00:00: mouth 2 [place] 1 billion 00 (two) Medical cell Tab times Branch daily. traMADol 50 2020-0 Yes [id number] 50mg Take 1 [facility] mg tablet 4-15 tablet by ity o f 00:00: mouth [place] 00 every 8 Medical (eight) Branch hours as needed for Pain (scale 7-10). amoxicillin 2020-0 Yes [id number] 500mg Take 1 [facility] 500 mg 4-15 capsule by ity of capsule 00:00: mouth 2 00 (two) Medical times Branch daily. Lactobacill 2020-0 Yes [id number] 1{tbl} Take 1 [facility] us 4-15 tablet by ity of Acidophilus 00:00: mouth 2 [place] 1 billion 00 (two) Medical cell Tab times Branch daily. traMADol 50 2020-0 Yes [id number] 50mg Take 1 [facility] mg tablet 4-15 tablet by ity o f 00:00: mouth [place] 00 every 8 Medical (eight) Branch hours as needed for Pain (scale 7-10). amoxicillin 2020-0 Yes [id number] 500mg Take 1 [facility] 500 mg 4-15 capsule by ity of capsule 00:00: mouth 2 00 (two) Medical times Branch daily. Lactobacill 2020-0 Yes [id number] 1{tbl} Take 1 [facility] us 4-15 tablet by ity of Acidophilus 00:00: mouth 2 [place] 1 billion 00 (two) Medical cell Tab times Branch daily. traMADol 50 2020-0 Yes [id number] 50mg Take 1 [facility] mg tablet 4-15 tablet by ity o f 00:00: mouth [place] 00 every 8 Medical (eight) Branch hours as needed for Pain (scale 7-10). amoxicillin 2020-0 Yes [id number] 500mg Take 1 [facility] 500 mg 4-15 capsule by ity of capsule 00:00: mouth 2 [place] 00 (two) Medical times Branch daily. Lactobacill 2020-0 Yes [id number] 1{tbl} Take 1 [facility] us 4-15 tablet by ity of Acidophilus 00:00: mouth 2 [facility] as 1 billion 00 (two) Medical cell Tab times Branch daily. traMADol 50 2020-0 Yes [id number] 50mg Take 1 [facility] mg tablet 4-15 tablet by ity o f 00:00: mouth [place] 00 every 8 Medical (eight) Branch hours as needed for Pain (scale 7-10). amoxicillin 2020-0 Yes [id number] 500mg Take 1 [facility] 500 mg 4-15 capsule by ity of capsule 00:00: mouth 2 [place] 00 (two) Medical times Branch daily. Lactobacill 2020-0 Yes [id number] 1{tbl} Take 1 [facility] us 4-15 tablet by ity of Acidophilus 00:00: mouth 2 [facility] as 1 billion 00 (two) Medical cell Tab times Branch daily. traMADol 50 2020-0 Yes [id number] 50mg Take 1 [facility] mg tablet 4-15 tablet by ity o f 00:00: mouth [place] 00 every 8 Medical (eight) Branch hours as needed for Pain (scale 7-10). amoxicillin 2020-0 Yes [id number] 500mg Take 1 [facility] 500 mg 4-15 capsule by ity of capsule 00:00: mouth 2 [place] 00 (two) Medical times Branch daily. Lactobacill 2020-0 Yes [id number] 1{tbl} Take 1 [facility] us 4-15 tablet by ity of Acidophilus 00:00: mouth 2 [facility] as 1 billion 00 (two) Medical cell Tab times Branch daily. traMADol 50 2020-0 Yes [id number] 50mg Take 1 [facility] mg tablet 4-15 tablet by ity o f 00:00: mouth [place] 00 every 8 Medical (eight) Branch hours as needed for Pain (scale 7-10). amoxicillin 2020-0 Yes [id number] 500mg Take 1 [facility] 500 mg 4-15 capsule by ity of capsule 00:00: mouth 2 [place] 00 (two) Medical times Branch daily. Lactobacill 2020-0 Yes [id number] 1{tbl} Take 1 [facility] us 4-15 tablet by ity of Acidophilus 00:00: mouth 2 [facility] as 1 billion 00 (two) Medical cell Tab times Branch daily. traMADol 50 2020-0 Yes [id number] 50mg Take 1 [facility] mg tablet 4-15 tablet by ity o f 00:00: mouth [place] 00 every 8 Medical (eight) Branch hours as needed for Pain (scale 7-10). amoxicillin 2020-0 Yes [id number] 500mg Take 1 [facility] 500 mg 4-15 capsule by ity of capsule 00:00: mouth 2 00 (two) Medical times Branch daily. Lactobacill 2020-0 Yes [id number] 1{tbl} Take 1 [facility] us 4-15 tablet by ity of Acidophilus 00:00: mouth 2 [place] 1 billion 00 (two) Medical cell Tab times Branch daily. traMADol 50 2020-0 Yes [id number] 50mg Take 1 [facility] mg tablet 4-15 tablet by ity o f 00:00: mouth [place] 00 every 8 Medical (eight) Branch hours as needed for Pain (scale 7-10). amoxicillin 2020-0 Yes [id number] 500mg Take 1 [facility] 500 mg 4-15 capsule by ity of capsule 00:00: mouth 2 (two) Medical times Branch daily. Lactobacill 2020-0 Yes [id number] 1{tbl} Take 1 [facility] us 4-15 tablet by ity of Acidophilus 00:00: mouth 2 [place] 1 billion 00 (two) Medical cell Tab times Branch daily. traMADol 50 2020-0 Yes [id number] 50mg Take 1 [facility] mg tablet 4-15 tablet by ity o f 00:00: mouth [place] 00 every 8 Medical (eight) Branch hours as needed for Pain (scale 7-10). amoxicillin 2020-0 Yes [id number] 500mg Take 1 [facility] 500 mg 4-15 capsule by ity of capsule 00:00: mouth 2 (two) Medical times Branch daily. Lactobacill 2020-0 Yes [id number] 1{tbl} Take 1 [facility] us 4-15 tablet by ity of Acidophilus 00:00: mouth 2 [facility] [place] 1 billion 00 (two) Medical cell Tab times Branch daily. traMADol 50 2020-0 Yes [id number] 50mg Take 1 [facility] mg tablet 4-15 tablet by ity o f 00:00: mouth [place] 00 every 8 Medical (eight) Branch hours as needed for Pain (scale 7-10). amoxicillin 2020-0 Yes [id number] 500mg Take 1 [facility] 500 mg 4-15 capsule by ity of capsule 00:00: mouth 2 [place] 00 (two) Medical times Branch daily. Lactobacill 2020-0 Yes [id number] 1{tbl} Take 1 [facility] us 4-15 tablet by ity of Acidophilus 00:00: mouth 2 [facility] as 1 billion 00 (two) Medical cell Tab times Branch daily. traMADol 50 2020-0 Yes [id number] 50mg Take 1 [facility] mg tablet 4-15 tablet by ity o f 00:00: mouth [place] 00 every 8 Medical (eight) Branch hours as needed for Pain (scale 7-10). amoxicillin 2020-0 Yes [id number] 500mg Take 1 [facility] 500 mg 4-15 capsule by ity of capsule 00:00: mouth 2 [place] 00 (two) Medical times Branch daily. Lactobacill 2020-0 Yes [id number] 1{tbl} Take 1 [facility] us 4-15 tablet by ity of Acidophilus 00:00: mouth 2 [facility] as 1 billion 00 (two) Medical cell Tab times Branch daily. traMADol 50 2020-0 Yes [id number] 50mg Take 1 [facility] mg tablet 4-15 tablet by ity o f 00:00: mouth [place] 00 every 8 Medical (eight) Branch hours as needed for Pain (scale 7-10). amoxicillin 2020-0 Yes [id number] 500mg Take 1 [facility] 500 mg 4-15 capsule by ity of capsule 00:00: mouth 2 00 (two) Medical times Branch daily. Lactobacill 2020-0 Yes [id number] 1{tbl} Take 1 [facility] us 4-15 tablet by ity of Acidophilus 00:00: mouth 2 [place] 1 billion 00 (two) Medical cell Tab times Branch daily. traMADol 50 2020-0 Yes [id number] 50mg Take 1 [facility] mg tablet 4-15 tablet by ity o f 00:00: mouth [place] 00 every 8 Medical (eight) Branch hours as needed for Pain (scale 7-10). amoxicillin 2020-0 Yes [id number] 500mg Take 1 [facility] 500 mg 4-15 capsule by ity of capsule 00:00: mouth 2 [place] 00 (two) Medical times Branch daily. Lactobacill 2020-0 Yes [id number] 1{tbl} Take 1 [facility] us 4-15 tablet by ity of Acidophilus 00:00: mouth 2 [facility] as 1 billion 00 (two) Medical cell Tab times Branch daily. traMADol 50 2020-0 Yes [id number] 50mg Take 1 [facility] mg tablet 4-15 tablet by ity o f 00:00: mouth [place] 00 every 8 Medical (eight) Branch hours as needed for Pain (scale 7-10). amoxicillin 2020-0 Yes [id number] 500mg Take 1 [facility] 500 mg 4-15 capsule by ity of capsule 00:00: mouth 2 [place] 00 (two) Medical times Branch daily. Lactobacill 2020-0 Yes [id number] 1{tbl} Take 1 [facility] us 4-15 tablet by ity of Acidophilus 00:00: mouth 2 [facility] as 1 billion 00 (two) Medical cell Tab times Branch daily. traMADol 50 2020-0 Yes [id number] 50mg Take 1 [facility] mg tablet 4-15 tablet by ity o f 00:00: mouth [place] 00 every 8 Medical (eight) Branch hours as needed for Pain (scale 7-10). amoxicillin 2020-0 Yes [id number] 500mg Take 1 [facility] 500 mg 4-15 capsule by ity of capsule 00:00: mouth 2 [place] 00 (two) Medical times Branch daily. Lactobacill 2020-0 Yes [id number] 1{tbl} Take 1 [facility] us 4-15 tablet by ity of Acidophilus 00:00: mouth 2 [facility] as 1 billion 00 (two) Medical cell Tab times Branch daily. traMADol 50 2020-0 Yes [id number] 50mg Take 1 [facility] mg tablet 4-15 tablet by ity o f 00:00: mouth [place] 00 every 8 Medical (eight) Branch hours as needed for Pain (scale 7-10). amoxicillin 2020-0 Yes [id number] 500mg Take 1 [facility] 500 mg 4-15 capsule by ity of capsule 00:00: mouth 2 [place] 00 (two) Medical times Branch daily. Lactobacill 2020-0 Yes [id number] 1{tbl} Take 1 [facility] us 4-15 tablet by ity of Acidophilus 00:00: mouth 2 [facility] as 1 billion 00 (two) Medical cell Tab times Branch daily. traMADol 50 2020-0 Yes [id number] 50mg Take 1 [facility] mg tablet 4-15 tablet by ity o f 00:00: mouth [place] 00 every 8 Medical (eight) Branch hours as needed for Pain (scale 7-10). amoxicillin 2020-0 Yes [id number] 500mg Take 1 [facility] 500 mg 4-15 capsule by ity of capsule 00:00: mouth 2 [place] 00 (two) Medical times Branch daily. Lactobacill 2020-0 Yes [id number] 1{tbl} Take 1 [facility] us 4-15 tablet by ity of Acidophilus 00:00: mouth 2 [facility] as 1 billion 00 (two) Medical cell Tab times Branch daily. traMADol 50 2020-0 Yes [id number] 50mg Take 1 [facility] mg tablet 4-15 tablet by ity o f 00:00: mouth [place] 00 every 8 Medical (eight) Branch hours as needed for Pain (scale 7-10). amoxicillin 2020-0 Yes [id number] 500mg Take 1 [facility] 500 mg 4-15 capsule by ity of capsule 00:00: mouth 2 [place] 00 (two) Medical times Branch daily. Lactobacill 2020-0 Yes [id number] 1{tbl} Take 1 [facility] us 4-15 tablet by ity of Acidophilus 00:00: mouth 2 [facility] as 1 billion 00 (two) Medical cell Tab times Branch daily. traMADol 50 2020-0 Yes [id number] 50mg Take 1 [facility] mg tablet 4-15 tablet by ity o f 00:00: mouth [place] 00 every 8 Medical (eight) Branch hours as needed for Pain (scale 7-10). amoxicillin 2020-0 Yes [id number] 500mg Take 1 [facility] 500 mg 4-15 capsule by ity of capsule 00:00: mouth 2 (two) Medical times Branch daily. Lactobacill 2020-0 Yes [id number] 1{tbl} Take 1 [facility] us 4-15 tablet by ity of Acidophilus 00:00: mouth 2 [facility] as 1 billion 00 (two) Medical cell Tab times Branch daily. traMADol 50 2020-0 Yes [id number] 50mg Take 1 [facility] mg tablet 4-15 tablet by ity o f 00:00: mouth [place] 00 every 8 Medical (eight) Branch hours as needed for Pain (scale 7-10). amoxicillin 2020-0 Yes [id number] 500mg Take 1 [facility] 500 mg 4-15 capsule by ity of capsule 00:00: mouth 2 [place] 00 (two) Medical times Branch daily. Lactobacill 2020-0 Yes [id number] 1{tbl} Take 1 [facility] us 4-15 tablet by ity of Acidophilus 00:00: mouth 2 [facility] as 1 billion 00 (two) Medical cell Tab times Branch daily. traMADol 50 2020-0 Yes [id number] 50mg Take 1 [facility] mg tablet 4-15 tablet by ity o f 00:00: mouth [place] 00 every 8 Medical (eight) Branch hours as needed for Pain (scale 7-10). amoxicillin 2020-0 Yes [id number] 500mg Take 1 [facility] 500 mg 4-15 capsule by ity of capsule 00:00: mouth 2 [place] 00 (two) Medical times Branch daily. Lactobacill 2020-0 Yes [id number] 1{tbl} Take 1 [facility] us 4-15 tablet by ity of Acidophilus 00:00: mouth 2 [facility] as 1 billion 00 (two) Medical cell Tab times Branch daily. traMADol 50 2020-0 Yes [id number] 50mg Take 1 [facility] mg tablet 4-15 tablet by ity o f 00:00: mouth [place] 00 every 8 Medical (eight) Branch hours as needed for Pain (scale 7-10). amoxicillin 2020-0 Yes [id number] 500mg Take 1 [facility] 500 mg 4-15 capsule by ity of capsule 00:00: mouth 2 [place] 00 (two) Medical times Branch daily. Lactobacill 2020-0 Yes [id number] 1{tbl} Take 1 [facility] us 4-15 tablet by ity of Acidophilus 00:00: mouth 2 [facility] as 1 billion 00 (two) Medical cell Tab times Branch daily. traMADol 50 2020-0 Yes [id number] 50mg Take 1 [facility] mg tablet 4-15 tablet by ity o f 00:00: mouth [place] 00 every 8 Medical (eight) Branch hours as needed for Pain (scale 7-10). amoxicillin 2020-0 Yes [id number] 500mg Take 1 [facility] 500 mg 4-15 capsule by ity of capsule 00:00: mouth 2 [place] 00 (two) Medical times Branch daily. Lactobacill 2020-0 Yes [id number] 1{tbl} Take 1 [facility] us 4-15 tablet by ity of Acidophilus 00:00: mouth 2 [facility] as 1 billion 00 (two) Medical cell Tab times Branch daily. traMADol 50 2020-0 Yes [id number] 50mg Take 1 [facility] mg tablet 4-15 tablet by ity o f 00:00: mouth [place] 00 every 8 Medical (eight) Branch hours as needed for Pain (scale 7-10). traMADol 50 2020-0 Yes [id number] 50mg Take 1 [facility] mg tablet 4-15 tablet by ity o f 00:00: mouth [place] 00 every 8 Medical (eight) Branch hours as needed for Pain (scale 7-10). traMADol 50 2019-2020- No [id number] 50mg Take 1 [facility] mg tablet 4-15 -27 tablet by ity of 00:00: 00:00 mouth [place] 00 :00 every 8 Medical (eight) Branch hours as needed for Pain (scale 7-10). traMADol 50 2019-2020- No [id number] 50mg Take 1 [facility] mg tablet 4-15 -27 tablet by ity of 00:00: 00:00 mouth [place] 00 :00 every 8 Medical (eight) Branch hours as needed for Pain (scale 7-10). amoxicillin 2019-2020- No [id number] 500mg Take 1 [facility] 500 mg 4-15 04-10 capsule by ity of capsule 00:00: 00:00 mouth 2 [place] 00 :00 (two) Medical times Branch daily. amoxicillin 2019-0 2020- No [id number] 500mg Take 1 [facility] 500 mg 4-15 04-10 capsule by ity of capsule 00:00: 00:00 mouth 2 [place] 00 :00 (two) Medical times Branch daily. amoxicillin 2019-0 2020- No [id number] 500mg Take 1 [facility] 500 mg 4-15 04-10 capsule by ity of capsule 00:00: 00:00 mouth 2 [place] 00 :00 (two) Medical times Branch daily. Lactobacill 2019-2020- No [id number] 1{tbl} Take 1 [facility] us 4-15 04-10 tablet by ity of Acidophilus 00:00: 00:00 mouth 2 [place] 1 billion 00 :00 (two) Medical cell Tab times Branch daily. metoclopram 2019-0 Yes 5mg 5 mg, Slow [facility] bj HCl 4-14 IV Push, ity of (REGLAN) 23:14: Q6HPRN, [place] injection 5 57 Starting Medi lizzy mg [facility] Branch 10/27/19 at 1814, Until Discontinu ed, Routine, Headache traMADol 2019-0 Yes 50mg 50 mg, Univers (ULTRAM) 4-14 Oral, ity of tablet 50 23:14: Q4HPRN, [place] mg 45 Starting Medical [facility] Branch 10/27/19 at 1814, Until Discontinu ed, Routine, Pain (scale 4-6), Headache acetaminoph 2020-0 Yes 650mg 650 mg, Un michael en 4-14 Oral, ity of (TYLENOL) 18:40: Q4HPRN, [place] tablet 650 56 Starting Medic al mg [facility] 10/27/19 at 1340, Until Discontinu ed, Routine, Pain (scale 1-3) furosemide 2020-0 Yes 40mg 40 mg, Unive rs (LASIX) 4-14 Oral, ity of tablet 40 14:00: QAM+PM, [place] mg 00 First dose Medical on [facility] 10/27/19 at 0900, Until Discontinu ed, Routine metoprolol 2020-0 Yes 50mg 50 mg, Unive rs succinate 4-14 Oral, ity of XL (TOPROL 14:00: DAILY, [place] XL) tablet 00 First dose Med ical 50 mg on [facility] 10/27/19 at 0900, Until Discontinu ed, Routine clopidogreL 2020-0 Yes 75mg 75 mg, Univ ers (PLAVIX) 4-14 Oral, ity of tablet 75 14:00: DAILY, [place] mg 00 First dose Medical on [facility] 10/27/19 at 0900, Until Discontinu ed, Routine enoxaparin 2020-0 Yes 30mg 30 mg, Unive rs (LOVENOX) 4-14 Subcutaneo ity of injection 14:00: [place], DAILY, [place] 30 mg 00 First dose Medical on [facility] 10/27/19 at 0900, Until Discontinu ed, Routine docusate 2020-0 Yes 100mg 100 mg, Unive rs (COLACE) 4-14 Oral, BID, ity o f capsule 100 13:00: First dose [place] mg 00 on [facility] 10/27/19 at Branch 0800, Until Discontinu ed, Routine Sliding 2020-0 Yes Subcutaneo Univ ers Scale 4-14 us, TID ity of Insulin - 13:00: MEALS+HS, You as [place] 00 First dose Medical (NOVOLOG) + on [facility] 10/27/19 at Testing 0800, Until Discontinu ed, Routine aspirin 2020-0 Yes 81mg 81 mg, Univers chewable 4-14 Oral, QAM ity of tablet 81 09:15: WITH [place] mg 00 BREAKFAST, Medical First dose Branch on e 10/27/19 at 0415, Until Discontinu ed, Routine ondansetron 2020-0 Yes 4mg 4 mg, Slow Univers (ZOFRAN 4-14 IV Push, ity of (PF)) 08:54: Q6HPRN, [place] injection 4 30 Starting Medi lizzy mg Tue Branch 10/27/19 at 0354, Until Discontinu ed, Routine, Nausea and Vomiting (N/V) glucagon 2020-0 Yes 1mg 1 mg, Univers (GLUCAGEN 14 Intramuscu ity of DIAGNOSTIC 08:53: lar, PRN, [place] KIT) 49 Starting Medical injection 1 Tue Branch mg 10/27/19 at 0353, Until Discontinu ed, KATHY, Blood Glucose < or = 70 mg/dL and patient is unable to swallow or has mental changes. dextrose 50 2020-0 Yes 25mL 25 mL, Univ ers % in water 14 Slow IV ity of (D50W) 08:53: Push, PRN, [place] injection 48 Starting Medica l 25 mL e Branch 10/27/19 at 0353, Until Discontinu ed, KATHY, Blood Glucose < or = 70 mg/dL and patient is unable to swallow or has mental status changes. dextrose 50 2020-0 2020- No 50mL 50 mL, Uni vers % in water 10-26 Intravenou it y of (D50W) 04:00: 02:57 s, ONCE, 1 [place] injection 00 :00 dose, Mon Medic al 50 mL 10/26/19 at Branch 2300, STAT ondansetron 2020-0 2020- No 8mg 8 mg, Univ ers (ZOFRAN-ODT 10-26 Oral, ity of ) 03:00: 02:04 ONCE, 1 [place] disintegrat 00 :00 dose, Mon Med ical ing tablet 10/26/19 at [facility] 8 mg 2200, KATHY sodium 2020-0 2020- No [id number] 15g Take 60 mL Univers polystyrene 10-2516 by mouth ity of sulfonate 00:00: 04:59 daily for [place] 15 gram/60 00 :00 2 doses. Medic al mL Branch suspension sodium 2020-0 2020- No [id number] 15g Take 60 mL Univers polystyrene 4-13 04-15 by mouth ity of sulfonate 00:00: 00:00 daily for [place] 15 gram/60 00 :00 2 doses. Medic al mL Branch suspension metoprolol 2020-0 2020- No 50mg Take 50 mg Univers succinate 10-18-06 by mouth ity o f 50 mg CSpX 21:11: 00:00 daily. [place] [facility] 36 :00 Medical Branch spironolact 2020-0 2020- No 25mg Take 25 mg Univers one 25 mg 10-18-06 by mouth ity o f tablet 21:11: 00:00 daily. [place] 36 :00 Medical Branch metoprolol 2020-0 2020- No 50mg Take 50 mg Univers succinate 10-18-06 by mouth ity o f 50 mg CSpX 21:11: 00:00 daily. [facility] 36 :00 Medical Branch spironolact 2020-0 2020- No 25mg Take 25 mg Univers one 25 mg 10-18-06 by mouth ity o f tablet 21:11: 00:00 daily. [place] 36 :00 Medical Branch clopidogreL 2020-0 Yes 75mg Take 1 Univ ers 75 mg 4-06 tablet by ity of tablet 00:00: mouth 00 daily. Medical Branch furosemide 2020-0 Yes 40mg Take 1 Unive rs 40 mg 4-06 tablet by ity of tablet 00:00: mouth [place] 00 every Medical morning Branch and evening. atorvastati 2020-0 Yes 80mg Take 1 Univ ers n 80 mg 4-06 tablet by ity of tablet 00:00: mouth at [place] 00 bedtime. Medical Branch metoprolol 2020-0 Yes 50mg Take 50 mg U nivers succinate -06 by mouth ity of 50 mg CSpX 00:00: daily. 00 Medical Branch spironolact 2020-0 Yes 25mg Take 1 Univ ers one 25 mg 4-06 tablet by ity o f tablet 00:00: mouth 00 daily. Medical Branch clopidogreL 2020-0 Yes 75mg Take 1 Univ ers 75 mg 4-06 tablet by ity of tablet 00:00: mouth [place] 00 daily. Medical Branch furosemide 2020-0 Yes 40mg Take 1 Unive rs 40 mg 4-06 tablet by ity of tablet 00:00: mouth [place] 00 every Medical morning Branch and evening. [...] Take 1 Univ ers n 80 mg 4- tablet by ity of tablet 00:00: mouth at [place] 00 bedtime. Medical Branch metoprolol 2019- Yes 50mg Take 1 Unive rs succinate [...] [place] 00 :00 bedtime. Medical Branch metoprolol 2019-2020- No 50mg Take 1 Univ ers succinate [...] [place] 00 :00 bedtime. Medical Branch metoprolol 2019-2020- No 50mg Take 1 Univ ers succinate 10-18 tablet by ity of XL 50 mg 24 00:00: 00:00 mouth [place] hr tablet 00 :00 daily. Medical Branch spironolact 2019-2019- No 25mg Take 1 Uni vers one 25 mg 10-18-15 tablet by ity of tablet 00:00: 00:00 mouth [place] 00 :00 daily. [facility] Branch metoprolol 2020-0 2020- No 50mg Take 50 mg Univers succinate 10-18- by mouth ity o f 50 mg CSpX 00:00: 00:00 [place]. [place] 00 :00 [facility] metoprolol 2020-0 2020- No 50mg Take 50 mg Univers succinate 10-18- by mouth ity o f 50 mg CSpX 00:00: 00:00 [place]. [place] 00 :00 [facility] metoprolol 2020-0 Yes 50mg Take 50 mg U nivers succinate 3-19 by mouth ity of 50 mg CSpX 23:09: daily. [address] spironolact 2020-0 Yes 25mg Take 25 mg Univers one 25 mg 3-19 by mouth ity of tablet 23:09: daily. [address] insulin NPH 2020-0 Yes 18U inject 18 U nivers human 3-19 Units ity of isophane 23:09: [place] (HUMULIN N 16 skin 2 Medical NPH INSULIN (two) Branch KWIKPEN SC) times daily. metoprolol 2020-0 Yes 50mg Take 50 mg U nivers succinate 3-19 by mouth ity of 50 mg CSpX 23:09: daily. [address] spironolact 2020-0 Yes 25mg Take 25 mg Univers one 25 mg 3-19 by mouth ity of tablet 23:09: daily. [address] insulin NPH 2020-0 Yes 18U inject [...] 3-19 ity of OINT) 2 % 19:00: skin 00 Medical ointment Branch sulfamethox 2020-0 2020- No 1{tbl} Take 1 U nivers azole-trime 3-19 03-19 tablet by it y of 16:32: 00:00 mouth 2 [place] (BACTRIM 29 :00 (two) Medical DS) 800-160 times Branch mg per daily. tablet amoxicillin 2020-0 Yes 1{tbl} 1 tablet, Univers -clavulanat 3-19 Oral, ity of e 15:30: Q12H, [place] (AUGMENTIN) 00 First dose Me dical 875-125 mg on Sat per tablet 10/01/19 at 1 tablet 1030, Until Discontinu ed, Routine
Reason for Anti-Infec tive: Empiric Therapy for Suspected Infection< br>Empiric Therapy Site: Respirator y
Durat ion of therapy: 72 hours zolpidem 2020-0 Yes 5mg 5 mg, Univers (AMBIEN) 3-19 Oral, ity of tablet 5 mg 02:19: QHSPRN, You as 25 Starting Medical Sat [place] 09/30/19 at 2119, Until Discontinu ed, Routine, Insomnia aspirin 2020-0 Yes 81mg 81 mg, Univers chewable 3-19 Oral, QHS, ity o f tablet 81 02:00: First dose [place] mg 00 on Sat Medical 09/30/19 at Branch 2100, Until Discontinu ed, Routine silver 2020-0 Yes Topical, Univers sulfADIAZIN 3-19 BID, First it y of E 01:00: dose on [place] (SILVADENE) 00 Wed Medical 1 % cream 09/30/19 at [facility] 2000, Until Discontinu ed, Routine ferrous 2020-0 Yes [id number] 325mg Take 1 Un michael sulfate 3-19 tablet by ity of (FERROUSUL) 00:00: mouth 3 You as 325 mg (65 00 (three) Medica l mg iron) times Branch tablet daily with meals. ferrous 2020-0 Yes [id number] 325mg Take 1 Un michael sulfate 3-19 tablet by ity of (FERROUSUL) 00:00: mouth 3 [place] 325 mg (65 00 (three) Medica l mg iron) times Branch tablet daily with meals. ferrous 2020-0 Yes [id number] 325mg Take 1 Un michael sulfate 3-19 tablet by ity of (FERROUSUL) 00:00: mouth 3 [place] as 325 mg (65 00 (three) Medica l mg iron) times Branch tablet daily with meals. ferrous 2020-0 Yes [id number] 325mg Take 1 Un michael sulfate 3-19 tablet by ity of (FERROUSUL) 00:00: mouth 3 [place] 325 mg (65 00 (three) Medica l mg iron) times Branch tablet daily with meals. ferrous 2020-0 Yes [id number] 325mg Take 1 Un michael sulfate 3-19 tablet by ity of (FERROUSUL) 00:00: mouth 3 [place] 325 mg (65 00 (three) Medica l mg iron) times Branch tablet daily with meals. ferrous 2020-0 Yes [id number] 325mg Take 1 Un michael sulfate 3-19 tablet by ity of (FERROUSUL) 00:00: mouth 3 [place] 325 mg (65 00 (three) Medica l mg iron) times Branch tablet daily with meals. ferrous 2020-0 Yes [id number] 325mg Take 1 Un michael sulfate 3-19 tablet by ity of (FERROUSUL) 00:00: mouth 3 [place] 325 mg (65 00 (three) Medica l mg iron) times Branch tablet daily with meals. ferrous 2020-0 Yes [id number] 325mg Take 1 Un michael sulfate 3-19 tablet by ity of (FERROUSUL) 00:00: mouth 3 [place] 325 mg (65 00 (three) Medica l mg iron) times Branch tablet daily with meals. ferrous 2020-0 Yes [id number] 325mg Take 1 Un michael sulfate 3-19 tablet by ity of (FERROUSUL) 00:00: mouth 3 [place] 325 mg (65 00 (three) Medica l mg iron) times Branch tablet daily with meals. ferrous 2020-0 Yes [id number] 325mg Take 1 Un michael sulfate 3-19 tablet by ity of (FERROUSUL) 00:00: mouth 3 [place] 325 mg (65 00 (three) Medica l mg iron) times Branch tablet daily with meals. ferrous 2020-0 Yes [id number] 325mg Take 1 Un michael sulfate 3-19 tablet by ity of (FERROUSUL) 00:00: mouth 3 [place] 325 mg (65 00 (three) Medica l mg iron) times Branch tablet daily with meals. ferrous 2020-0 Yes [id number] 325mg Take 1 Un michael sulfate 3-19 tablet by ity of (FERROUSUL) 00:00: mouth 3 [place] 325 mg (65 00 (three) Medica l mg iron) times Branch tablet daily with meals. ferrous 2020-0 Yes [id number] 325mg Take 1 Un michael sulfate 3-19 tablet by ity of (FERROUSUL) 00:00: mouth 3 [place] 325 mg (65 00 (three) Medica l mg iron) times Branch tablet daily with meals. ferrous 2020-0 Yes [id number] 325mg Take 1 Un michael sulfate 3-19 tablet by ity of (FERROUSUL) 00:00: mouth 3 [place] 325 mg (65 00 (three) Medica l mg iron) times Branch tablet daily with meals. ferrous 2020-0 Yes [id number] 325mg Take 1 Un michael sulfate 3-19 tablet by ity of (FERROUSUL) 00:00: mouth 3 [place] 325 mg (65 00 (three) Medica l mg iron) times Branch tablet daily with meals. ferrous 2020-0 Yes [id number] 325mg Take 1 Un michael sulfate 3-19 tablet by ity of (FERROUSUL) 00:00: mouth 3 [place] 325 mg (65 00 (three) Medica l mg iron) times Branch tablet daily with meals. ferrous 2020-0 Yes [id number] 325mg Take 1 Un michael sulfate 3-19 tablet by ity of (FERROUSUL) 00:00: mouth 3 [place] 325 mg (65 00 (three) Medica l mg iron) times Branch tablet daily with meals. ferrous 2020-0 Yes [id number] 325mg Take 1 Un michael sulfate 3-19 tablet by ity of (FERROUSUL) 00:00: mouth 3 [place] 325 mg (65 00 (three) Medica l mg iron) times Branch tablet daily with meals. ferrous 2020-0 Yes [id number] 325mg Take 1 Un michael sulfate 3-19 tablet by ity of (FERROUSUL) 00:00: mouth 3 [place] 325 mg (65 00 (three) Medica l mg iron) times Branch tablet daily with meals. ferrous 2020-0 Yes [id number] 325mg Take 1 Un michael sulfate 3-19 tablet by ity of (FERROUSUL) 00:00: mouth 3 [place] 325 mg (65 00 (three) Medica l mg iron) times Branch tablet daily with meals. ferrous 2020-0 Yes [id number] 325mg Take 1 Un michael sulfate 3-19 tablet by ity of (FERROUSUL) 00:00: mouth 3 [place] 325 mg (65 00 (three) Medica l mg iron) times Branch tablet daily with meals. ferrous 2020-0 Yes [id number] 325mg Take 1 Un michael sulfate 3-19 tablet by ity of (FERROUSUL) 00:00: mouth 3 [place] 325 mg (65 00 (three) Medica l mg iron) times Branch tablet daily with meals. ferrous 2020-0 Yes [id number] 325mg Take 1 Un michael sulfate 3-19 tablet by ity of (FERROUSUL) 00:00: mouth 3 [place] 325 mg (65 00 (three) Medica l mg iron) times Branch tablet daily with meals. ferrous 2020-0 Yes [id number] 325mg Take 1 Un michael sulfate 3-19 tablet by ity of (FERROUSUL) 00:00: mouth 3 [place] 325 mg (65 00 (three) Medica l mg iron) times Branch tablet daily with meals. ferrous 2020-0 Yes [id number] 325mg Take 1 Un michael sulfate 3-19 tablet by ity of (FERROUSUL) 00:00: mouth 3 [place] 325 mg (65 00 (three) Medica l mg iron) times Branch tablet daily with meals. ferrous 2020-0 Yes [id number] 325mg Take 1 Un michael sulfate 3-19 tablet by ity of (FERROUSUL) 00:00: mouth 3 [place] 325 mg (65 00 (three) Medica l mg iron) times Branch tablet daily with meals. ferrous 2020-0 Yes [id number] 325mg Take 1 Un michael sulfate 3-19 tablet by ity of (FERROUSUL) 00:00: mouth 3 [place] 325 mg (65 00 (three) Medica l mg iron) times Branch tablet daily with meals. ferrous 2020-0 Yes [id number] 325mg Take 1 Un michael sulfate 3-19 tablet by ity of (FERROUSUL) 00:00: mouth 3 [place] 325 mg (65 00 (three) Medica l mg iron) times Branch tablet daily with meals. ferrous 2020-0 Yes [id number] 325mg Take 1 Un michael sulfate 3-19 tablet by ity of (FERROUSUL) 00:00: mouth 3 [place] 325 mg (65 00 (three) Medica l mg iron) times Branch tablet daily with meals. ferrous 2020-0 Yes [id number] 325mg Take 1 Un michael sulfate 3-19 tablet by ity of (FERROUSUL) 00:00: mouth 3 [place] 325 mg (65 00 (three) Medica l mg iron) times Branch tablet daily with meals. ferrous 2020-0 Yes [id number] 325mg Take 1 Un michael sulfate 3-19 tablet by ity of (FERROUSUL) 00:00: mouth 3 [place] 325 mg (65 00 (three) Medica l mg iron) times Branch tablet daily with meals. ferrous 2020-0 Yes [id number] 325mg Take 1 Un michael sulfate 3-19 tablet by ity of (FERROUSUL) 00:00: mouth 3 [place] 325 mg (65 00 (three) Medica l mg iron) times Branch tablet daily with meals. ferrous 2020-0 Yes [id number] 325mg Take 1 Un michael sulfate 3-19 tablet by ity of (FERROUSUL) 00:00: mouth 3 [place] 325 mg (65 00 (three) Medica l mg iron) times Branch tablet daily with meals. ferrous 2020-0 Yes [id number] 325mg Take 1 Un michael sulfate 3-19 tablet by ity of (FERROUSUL) 00:00: mouth 3 [place] 325 mg (65 00 (three) Medica l mg iron) times Branch tablet daily with meals. ferrous 2020-0 Yes [id number] 325mg Take 1 Un michael sulfate 3-19 tablet by ity of (FERROUSUL) 00:00: mouth 3 [place] 325 mg (65 00 (three) Medica l mg iron) times Branch tablet daily with meals. ferrous 2020-0 Yes [id number] 325mg Take 1 Un michael sulfate 3-19 tablet by ity of (FERROUSUL) 00:00: mouth 3 [place] 325 mg (65 00 (three) Medica l mg iron) times Branch tablet daily with meals. ferrous 2020-0 Yes [id number] 325mg Take 1 Un michael sulfate 3-19 tablet by ity of (FERROUSUL) 00:00: mouth 3 [place] 325 mg (65 00 (three) Medica l mg iron) times Branch tablet daily with meals. ferrous 2020-0 Yes [id number] 325mg Take 1 Un michael sulfate 3-19 tablet by ity of (FERROUSUL) 00:00: mouth 3 [place] 325 mg (65 00 (three) Medica l mg iron) times Branch tablet daily with meals. ferrous 2020-0 Yes [id number] 325mg Take 1 Un michael sulfate 3-19 tablet by ity of (FERROUSUL) 00:00: mouth 3 [place] 325 mg (65 00 (three) Medica l mg iron) times Branch tablet daily with meals. ferrous 2020-0 Yes [id number] 325mg Take 1 Un michael sulfate 3-19 tablet by ity of (FERROUSUL) 00:00: mouth 3 [place] as 325 mg (65 00 (three) Medica l mg iron) times Branch tablet daily with meals. ferrous 2019-2020- No [id number] 325mg Take 1 U nivers sulfate 3-19 04-27 tablet by ity of (FERROUSUL) 00:00: 00:00 mouth 3 [place] 325 mg (65 00 :00 (three) Medica l mg iron) times Branch tablet daily with meals. ferrous 2019-2020- No [id number] 325mg Take 1 U nivers sulfate 3-19 [...] Yes 3mL 3 mL, Unive rs -albuterol 3-18 Inhalation ity of (DUONEB) 21:01: , Q6HPRN, [...] Branch 1100, Until Discontinu ed, Routine famotidine 2020-0 Yes 20mg 20 mg, Unive rs (PEPCID AC) 3-18 Oral, ity of tablet 20 14:00: DAILY, [place] mg 00 First dose Medical on Sat Branch 09/30/19 at 0900, Until Discontinu ed, Routine metoprolol 2020-0 Yes 50mg 50 mg, Unive rs succinate -18 Oral, ity of XL (TOPROL 14:00: DAILY, [place] XL) tablet 00 First dose Med ical 50 mg on Sat Branch 09/30/19 at 0900, Until Discontinu ed insulin NPH 2020-0 Yes 15U 15 Units, U nivers (HUMULIN N) -18 Subcutaneo it y of injection 14:00: , [place] 15 Units 00 QAM+PM, Medical First dose Branch on Sat09/30/19 at 0900, Until Discontinu ed clopidogreL 2020-0 Yes 75mg 75 mg, Univ ers (PLAVIX) 3-18 Oral, ity of tablet 75 14:00: DAILY, [...]
Facu lty member approving Restricted medication : ALBUSTNIKA PALUMBOAR Sliding 2020-0 Yes Subcutaneo Univ ers Scale -18 us, TID ity of Insulin - 13:00: MEALS+HS, You as Lispro 00 First dose Medical (HumaLOG) + on Sat [facility] 09/30/19 at Testing 0800, Until Discontinu ed, Routine docusate 2020-0 Yes 100mg 100 mg, Unive rs (COLACE) -18 Oral, BID, ity o f capsule 100 13:00: First dose [place] mg 00 on Sat Medical 09/30/19 at Branch 0800, Until Discontinu ed, Routine ferrous 2020-0 Yes 325mg 325 mg, Univer s sulfate 09-29 Oral, TID ity of tablet 325 13:00: MEALS, [place] mg 00 First dose Medical on Sat Branch 09/30/19 at 0800, Until Discontinu ed, Routine NaCl 0.9% 2020-0 2020- No 1000mL at 50 Univ ers (NS) IV 09-29 03-18 mL/hr, IV ity of infusion 03:00: 15:47 Infusion, You as 1,000 mL 00 :11 CONTINUOUS Medic al , Starting Branch Sat09/29/19 at 2200, Until Sat09/30/19 at 1047, Routine melatonin 2020-0 Yes 3mg 3 mg, Univers (MELATIN) 18 Oral, QHS, ity of tablet 3 mg 02:30: First dose [place] 00 on Sat [facility] 09/29/19 at Branch 2130, Until Discontinu ed, Routine atorvastati 2020-0 Yes 40mg 40 mg, Univ ers n (LIPITOR) 3-18 Oral, QHS, it y of tablet 40 02:00: First dose [place] mg 00 on Sat [facility] 09/29/19 at Branch 2100, Until Discontinu ed, Routine metoprolol 2020-0 Yes 50mg Take 50 mg U nivers succinate 18 by mouth ity of 50 mg CSpX 01:49: daily. [place] [address] Medical Branch spironolact 2020-0 Yes 25mg Take 25 mg Univers one 25 mg 3-18 by mouth ity of tablet 01:49: daily. [place] [address] Medical Branch insulin NPH 2020-0 Yes 18U inject 18 U nivers human 3-18 Units ity of isophane 01:49: [place] (HUMULIN N 18 skin 2 Medical NPH INSULIN (two) Branch KWIKPEN SC) times daily. sulfamethox 2020-0 Yes 1{tbl} Take 1 Un michael azole-trime 3-18 tablet by ity of thoprim 01:49: mouth 2 [place] (BACTRIM 18 (two) Medical DS) 800-160 times Branch mg per daily. tablet metoprolol 2020-0 Yes 50mg Take 50 mg U nivers succinate 3-18 by mouth ity of 50 mg CSpX 01:49: daily. [place] [address] Medical Branch spironolact 2020-0 Yes 25mg Take 25 mg Univers one 25 mg 3-18 by mouth ity of tablet 01:49: daily. [place] [address] Medical Branch insulin NPH 2020-0 Yes 18U inject 18 U nivers human 3-18 Units ity of isophane 01:49: [place] the [place] (HUMULIN N 18 skin 2 Medical NPH INSULIN (two) Branch KWIKPEN SC) times daily. ondansetron 2020-0 Yes 4mg 4 mg, Slow Univers (ZOFRAN 3-18 IV Push, ity of (PF)) 01:47: Q6HPRN, [place] injection 4 45 Starting Medi lizzy mg e Branch 09/29/19 at 2046, Until Discontinu ed, Routine, Nausea and Vomiting (N/V) HYDROcodone 2020-0 2020- No 1{tbl} 1 tablet, Univers -acetaminop 3-18 03-20 Oral, ity of hen (NORCO 01:47: 01:46 Q6HPRN, You as 5) 5-325 mg 37 :37 Starting Medi lizzy tablet 1 Tue Branch tablet 09/29/19 at 2046, Until Francie 10/01/19 at 2045, Routine, Pain (scale 4-6) acetaminoph 2020-0 Yes 650mg 650 mg, Un michael en 3-18 Oral, ity of (TYLENOL) 01:47: Q6HPRN, [place] tablet 650 36 Starting Medic al mg [facility] 09/29/19 at 2046, Until Discontinu ed, Routine, Pain (scale 1-3) nitroglycer 2020-0 Yes .4mg 0.4 mg, Uni vers in 3-18 Sublingual ity of (NITROSTAT) 01:46: , Q5MIN You as sublingual 06 PRN, Medical tablet 0.4 Starting Branc h mg [facility] 09/29/19 at 2045, Until Discontinu ed, Routine, Chest pain furosemide 2020-0 2020- No 40mg 40 mg, IV U nivers (LASIX) 3-18 03-17 Push, ity of injection 00:00: 23:22 ONCE, 1 [place] 40 mg 00 :00 dose, [facility] 09/29/19 at Branch 1900, KATHY Sulfamethox Sulfamethox 2020-0 Yes M.A. TAKE 1 Univers azole-Trime azole-Trime 3-17 TABLET ity of thoprim thoprim 00:00: TWICE [place] 800-160 MG 800-160 MG 00 DAILY. for Physici Oral Tablet Oral Tablet 7 days ans metoprolol 2020-0 Yes 50mg Take 50 mg U nivers succinate 3-16 by mouth ity of 50 mg CSpX 18:06: daily. [address] spironolact 2020-0 Yes 25mg Take 25 mg Univers one 25 mg 3-16 by mouth ity of tablet 18:06: daily. [address] insulin NPH 2020-0 Yes 18U inject 18 U nivers human 3-16 Units ity of isophane 18:06: [place] (HUMULIN N 02 skin 2 Medical NPH INSULIN (two) Branch KWIKPEN NM) times daily. metoprolol 2020-0 Yes 50mg Take 50 mg U nivers succinate 3-16 by mouth ity of 50 mg CSpX 18:06: daily. [address] spironolact 2020-0 Yes 25mg Take 25 mg Univers one 25 mg 3-16 by mouth ity of tablet 18:06: daily. [address] insulin NPH 2020-0 Yes 18U inject 18 U nivers human 3-16 Units ity of isophane 18:06: [place] (HUMULIN N 02 skin 2 Medical NPH INSULIN (two) Branch KWIKPEN NM) times daily. sulfamethox 2020-0 2020- No [id number] 1{tbl} Take 1 Univers azole-trime 09-20 tablet by it y of thoprim 00:00: 04:59 mouth 2 [place] (BACTRIM 00 :00 (two) Medical DS) 800-160 times Branch mg per daily for tablet 7 days. sulfamethox 2020-0 2020- No [id number] 1{tbl} Take 1 Univers azole-trime 09-20 tablet by it y of thoprim 00:00: 04:59 mouth 2 [place] (BACTRIM 00 :00 (two) Medical DS) 800-160 times Branch mg per daily for tablet 7 days. sulfamethox 2020-0 2020- No [id number] 1{tbl} Take 1 Univers azole-trime 09-20 tablet [...] Bran ch 4 mg 2099, Routine acetaminoph 2019-0 2020- No 650mg 650 mg, U nivers en 09-18 Oral, ity of (TYLENOL) 03:00: 01:55 ONCE, 1 [place] tablet 650 00 :00 dose, Fri Medi lizzy mg 09/18/19 at Branch 2100, KATHY diph,pertus 2020-0 2020- No .5mL 0.5 mL, Un michael (acel),teta 09-18 Intramuscu i ty of nus 02:15: 02:15 lar, ONCE, [place] (ADACEL) 00 :00 1 dose, Medical injection 09/18/19 Bran ch 0.5 mL at 2014, Routine ondansetron 2020-0 Yes [id number] 4mg Take 1 Univers 4 mg 3-06 tablet by ity of disintegrat 00:00: mouth [place] ing tablet 00 every 8 Medica l (eight) Branch hours as needed for Nausea and Vomiting (N/V) for up to 15 doses. ondansetron 2020-0 Yes [id number] 4mg Take 1 Univers 4 mg 3-06 tablet by ity of disintegrat 00:00: mouth [place] ing tablet 00 every 8 Medica l (eight) Branch hours as needed for Nausea and Vomiting (N/V) for up to 15 doses. ondansetron 2020-0 Yes [id number] 4mg Take 1 Univers 4 mg 3-06 tablet by ity of disintegrat 00:00: mouth [place] ing tablet 00 every 8 Medica l (eight) Branch hours as needed for Nausea and Vomiting (N/V) for up to 15 doses. ondansetron 2020-0 Yes [id number] 4mg Take 1 Univers 4 mg 3-06 tablet by ity of disintegrat 00:00: mouth [place] ing tablet 00 every 8 Medica l (eight) Branch hours as needed for Nausea and Vomiting (N/V) for up to 15 doses. ondansetron 2020-0 Yes [id number] 4mg Take 1 Univers 4 mg 3-06 tablet by ity of disintegrat 00:00: mouth [place] ing tablet 00 every 8 Medica l (eight) Branch hours as needed for Nausea and Vomiting (N/V) for up to 15 doses. ondansetron 2020-0 Yes [id number] 4mg Take 1 Univers 4 mg 3-06 tablet by ity of disintegrat 00:00: mouth [place] ing tablet 00 every 8 Medica l (eight) Branch hours as needed for Nausea and Vomiting (N/V) for up to 15 doses. ondansetron 2020-0 Yes [id number] 4mg Take 1 Univers 4 mg 3-06 tablet by ity of disintegrat 00:00: mouth [place] ing tablet 00 every 8 Medica l (eight) Branch hours as needed for Nausea and Vomiting (N/V) for up to 15 doses. ondansetron 2020-0 Yes [id number] 4mg Take 1 Univers 4 mg 3-06 tablet by ity of disintegrat 00:00: mouth [place] ing tablet 00 every 8 Medica l (eight) Branch hours as needed for Nausea and Vomiting (N/V) for up to 15 doses. ondansetron 2020-0 Yes [id number] 4mg Take 1 Univers 4 mg 3-06 tablet by ity of disintegrat 00:00: mouth [place] ing tablet 00 every 8 Medica l (eight) Branch hours as needed for Nausea and Vomiting (N/V) for up to 15 doses. ondansetron 2020-0 Yes [id number] 4mg Take 1 [facility] 4 mg 3-06 tablet by ity of disintegrat 00:00: mouth [place] ing tablet 00 every 8 Medica l (eight) Branch hours as needed for Nausea and Vomiting (N/V) for up to 15 doses. ondansetron 2020-0 Yes [id number] 4mg Take 1 [facility] 4 mg 3-06 tablet by ity of disintegrat 00:00: mouth [place] ing tablet 00 every 8 Medica l (eight) Branch hours as needed for Nausea and Vomiting (N/V) for up to 15 doses. ondansetron 2020-0 Yes [id number] 4mg Take 1 [facility] 4 mg 3-06 tablet by ity of disintegrat 00:00: mouth [place] ing tablet 00 every 8 Medica l (eight) Branch hours as needed for Nausea and Vomiting (N/V) for up to 15 doses. ondansetron 2020-0 Yes [id number] 4mg Take 1 [facility] 4 mg 3-06 tablet by ity of disintegrat 00:00: mouth [place] ing tablet 00 every 8 Medica l (eight) Branch hours as needed for Nausea and Vomiting (N/V) for up to 15 doses. ondansetron 2020-0 Yes [id number] 4mg Take 1 [facility] 4 mg 3-06 tablet by ity of disintegrat 00:00: mouth [place] ing tablet 00 every 8 Medica l (eight) Branch hours as needed for Nausea and Vomiting (N/V) for up to 15 doses. ondansetron 2020-0 Yes [id number] 4mg Take 1 [facility] 4 mg 3-06 tablet by ity of disintegrat 00:00: mouth [place] ing tablet 00 every 8 Medica l (eight) Branch hours as needed for Nausea and Vomiting (N/V) for up to 15 doses. ondansetron 2020-0 Yes [id number] 4mg Take 1 [facility] 4 mg 3-06 tablet by ity of disintegrat 00:00: mouth [place] ing tablet 00 every 8 Medica l (eight) Branch hours as needed for Nausea and Vomiting (N/V) for up to 15 doses. ondansetron 2020-0 Yes [id number] 4mg Take 1 [facility] 4 mg 3-06 tablet by ity of disintegrat 00:00: mouth [place] ing tablet 00 every 8 Medica l (eight) Branch hours as needed for Nausea and Vomiting (N/V) for up to 15 doses. ondansetron 2020-0 Yes [id number] 4mg Take 1 [facility] 4 mg 3-06 tablet by ity of disintegrat 00:00: mouth [place] ing tablet 00 every 8 Medica l (eight) Branch hours as needed for Nausea and Vomiting (N/V) for up to 15 doses. ondansetron 2020-0 Yes [id number] 4mg Take 1 [facility] 4 mg 3-06 tablet by ity of disintegrat 00:00: mouth [place] ing tablet 00 every 8 Medica l (eight) Branch hours as needed for Nausea and Vomiting (N/V) for up to 15 doses. ondansetron 2020-0 Yes [id number] 4mg Take 1 [facility] 4 mg 3-06 tablet by ity of disintegrat 00:00: mouth [place] ing tablet 00 every 8 Medica l (eight) Branch hours as needed for Nausea and Vomiting (N/V) for up to 15 doses. ondansetron 2020-0 Yes [id number] 4mg Take 1 [facility] 4 mg 3-06 tablet by ity of disintegrat 00:00: mouth [place] ing tablet 00 every 8 Medica l (eight) Branch hours as needed for Nausea and Vomiting (N/V) for up to 15 doses. ondansetron 2020-0 Yes [id number] 4mg Take 1 [facility] 4 mg 3-06 tablet by ity of disintegrat 00:00: mouth [place] ing tablet 00 every 8 Medica l (eight) Branch hours as needed for Nausea and Vomiting (N/V) for up to 15 doses. ondansetron 2020-0 Yes [id number] 4mg Take 1 [facility] 4 mg 3-06 tablet by ity of disintegrat 00:00: mouth [place] ing tablet 00 every 8 Medica l (eight) Branch hours as needed for Nausea and Vomiting (N/V) for up to 15 doses. ondansetron 2020-0 Yes [id number] 4mg Take 1 [facility] 4 mg 3-06 tablet by ity of disintegrat 00:00: mouth [place] ing tablet 00 every 8 Medica l (eight) Branch hours as needed for Nausea and Vomiting (N/V) for up to 15 doses. ondansetron 2020-0 Yes [id number] 4mg Take 1 [facility] 4 mg 3-06 tablet by ity of disintegrat 00:00: mouth [place] ing tablet 00 every 8 Medica l (eight) Branch hours as needed for Nausea and Vomiting (N/V) for up to 15 doses. ondansetron 2020-0 Yes [id number] 4mg Take 1 [facility] 4 mg 3-06 tablet by ity of disintegrat 00:00: mouth [place] ing tablet 00 every 8 Medica l (eight) Branch hours as needed for Nausea and Vomiting (N/V) for up to 15 doses. ondansetron 2020-0 Yes [id number] 4mg Take 1 [facility] 4 mg 3-06 tablet by ity of disintegrat 00:00: mouth [place] ing tablet 00 every 8 Medica l (eight) Branch hours as needed for Nausea and Vomiting (N/V) for up to 15 doses. ondansetron 2020-0 Yes [id number] 4mg Take 1 [facility] 4 mg 3-06 tablet by ity of disintegrat 00:00: mouth [place] ing tablet 00 every 8 Medica l (eight) Branch hours as needed for Nausea and Vomiting (N/V) for up to 15 doses. ondansetron 2020-0 Yes [id number] 4mg Take 1 [facility] 4 mg 3-06 tablet by ity of disintegrat 00:00: mouth [place] ing tablet 00 every 8 Medica l (eight) Branch hours as needed for Nausea and Vomiting (N/V) for up to 15 doses. ondansetron 2020-0 Yes [id number] 4mg Take 1 [facility] 4 mg 3-06 tablet by ity of disintegrat 00:00: mouth [place] ing tablet 00 every 8 Medica l (eight) Branch hours as needed for Nausea and Vomiting (N/V) for up to 15 doses. ondansetron 2020-0 Yes [id number] 4mg Take 1 [facility] 4 mg 3-06 tablet by ity of disintegrat 00:00: mouth [place] ing tablet 00 every 8 Medica l (eight) Branch hours as needed for Nausea and Vomiting (N/V) for up to 15 doses. ondansetron 2020-0 Yes [id number] 4mg Take 1 [facility] 4 mg 3-06 tablet by ity of disintegrat 00:00: mouth [place] ing tablet 00 every 8 Medica l (eight) Branch hours as needed for Nausea and Vomiting (N/V) for up to 15 doses. ondansetron 2020-0 Yes [id number] 4mg Take 1 [facility] 4 mg 3-06 tablet by ity of disintegrat 00:00: mouth [place] ing tablet 00 every 8 Medica l (eight) Branch hours as needed for Nausea and Vomiting (N/V) for up to 15 doses. ondansetron 2020-0 Yes [id number] 4mg Take 1 [facility] 4 mg 3-06 tablet by ity of disintegrat 00:00: mouth [place] ing tablet 00 every 8 Medica l (eight) Branch hours as needed for Nausea and Vomiting (N/V) for up to 15 doses. ondansetron 2020-0 Yes [id number] 4mg Take 1 [facility] 4 mg 3-06 tablet by ity of disintegrat 00:00: mouth [place] ing tablet 00 every 8 Medica l (eight) Branch hours as needed for Nausea and Vomiting (N/V) for up to 15 doses. ondansetron 2020-0 Yes [id number] 4mg Take 1 [facility] 4 mg 3-06 tablet by ity of disintegrat 00:00: mouth [place] ing tablet 00 every 8 Medica l (eight) Branch hours as needed for Nausea and Vomiting (N/V) for up to 15 doses. ondansetron 2020-0 Yes [id number] 4mg Take 1 [facility] 4 mg 3-06 tablet by ity of disintegrat 00:00: mouth [place] ing tablet 00 every 8 Medica l (eight) Branch hours as needed for Nausea and Vomiting (N/V) for up to 15 doses. ondansetron 2020-0 Yes [id number] 4mg Take 1 [facility] 4 mg 3-06 tablet by ity of disintegrat 00:00: mouth [place] ing tablet 00 every 8 Medica l (eight) Branch hours as needed for Nausea and Vomiting (N/V) for up to 15 doses. ondansetron 2020-0 Yes [id number] 4mg Take 1 [facility] 4 mg 3-06 tablet by ity of disintegrat 00:00: mouth [place] ing tablet 00 every 8 Medica l (eight) Branch hours as needed for Nausea and Vomiting (N/V) for up to 15 doses. ondansetron 2020-0 Yes [id number] 4mg Take 1 [facility] 4 mg 3-06 tablet by ity of disintegrat 00:00: mouth [place] ing tablet 00 every 8 Medica l (eight) Branch hours as needed for Nausea and Vomiting (N/V) for up to 15 doses. ondansetron 2020-0 Yes [id number] 4mg Take 1 [facility] 4 mg 3-06 tablet by ity of disintegrat 00:00: mouth [place] ing tablet 00 every 8 Medica l (eight) Branch hours as needed for Nausea and Vomiting (N/V) for up to 15 doses. ondansetron 2020-0 Yes [id number] 4mg Take 1 [facility] 4 mg 3-06 tablet by ity of disintegrat 00:00: mouth [place] ing tablet 00 every 8 Medica l (eight) Branch hours as needed for Nausea and Vomiting (N/V) for up to 15 doses. ondansetron 2020-0 Yes [id number] 4mg Take 1 [facility] 4 mg 3-06 tablet by ity of disintegrat 00:00: mouth [place] ing tablet 00 every 8 Medica l (eight) Branch hours as needed for Nausea and Vomiting (N/V) for up to 15 doses. ondansetron 2020-0 Yes [id number] 4mg Take 1 [facility] 4 mg 3-06 tablet by ity of disintegrat 00:00: mouth [place] ing tablet 00 every 8 Medica l (eight) Branch hours as needed for Nausea and Vomiting (N/V) for up to 15 doses. ondansetron 2020-0 Yes [id number] 4mg Take 1 [facility] 4 mg 3-06 tablet by ity of disintegrat 00:00: mouth [place] ing tablet 00 every 8 Medica l (eight) Branch hours as needed for Nausea and Vomiting (N/V) for up to 15 doses. ondansetron 2020-0 Yes [id number] 4mg Take 1 [facility] 4 mg 3-06 tablet by ity of disintegrat 00:00: mouth [place] ing tablet 00 every 8 Medica l (eight) Branch hours as needed for Nausea and Vomiting (N/V) for up to 15 doses. ondansetron 2020-0 1- No [id number] 4mg Take 1 [facility] 4 mg 3-06 [...] PATCH ity of Transdermal Transdermal 00:00: DAILY [place] Patch 24 Patch 24 00 DIRECTED. Ph [...] 00 Physici ans HumuLIN N HumuLIN N 2020-0 Yes M.A. inject 18 [facility] KwikPen 100 KwikPen 100 3-05 units ity of UNIT/ML UNIT/ML 00:00: under the [place] Subcutaneou Subcutaneou 00 skin 2 Physici s s times ans Suspension Suspension daily Pen-injecto Pen-injecto r r Metoprolol Metoprolol 2020-0 Yes M.A. 1 QD TAKE 1 [facility] Succinate Succinate 3-05 TABLET ity of ER 50 MG ER 50 MG 00:00: DAILY. You as Oral Tablet Oral Tablet 00 P hysici Extended Extended ans Release 24 Release 24 Hour Hour Spironolact Spironolact 2020-0 Yes M.A. 1 QD TAKE 1 Univers [...] ity of Sublingual Sublingual 00:00: UNDER THE [place] Tablet Tablet 00 TONGUE Physici Sublingual Sublingual EVERY 5 ans MINUTES FOR UP TO 3 DOSES NEEDED FOR CHEST PAIN.CALL 911 IF PAIN PERSISTS. HumuLIN R HumuLIN R 2020-0 Yes M.A. inject 12 [facility] 100 UNIT/ML 100 UNIT/ML 3-05 units ity of Injection Injection 00:00: under the [place] Solution Solution 00 skin 2 Physi ci times ans daily before breakfast and dinner. furosemide 2020-0 Yes 40mg 40 mg, Unive rs (LASIX) 3-03 Oral, ity of tablet 40 23:00: QAM+PM, [place] mg 00 First dose Medical on [facility] Branch 09/15/19 at 1700, Until Discontinu ed, Routine metoprolol 2020-0 Yes 50mg Take 50 mg U nivers succinate 3-03 by mouth ity of 50 mg CSpX 20:03: daily. [address] spironolact 2020-0 Yes 25mg Take 25 mg Univers one 25 mg 3-03 by mouth ity of tablet 20:03: daily. [address] insulin NPH 2020-0 Yes 18U inject 18 U nivers human 3-03 Units ity of isophane 20:03: under the [place] (HUMULIN N 35 skin 2 Medical NPH INSULIN (two) Branch [facility]) times daily. metoprolol 2020-0 Yes 50mg Take 50 mg U nivers succinate 3-03 by mouth ity of 50 mg CSpX 20:03: daily. [address] spironolact 2020-0 Yes 25mg Take 25 mg [facility] one 25 mg 3-03 by mouth ity of tablet 20:03: daily. [address] insulin NPH 2020-0 Yes 18U inject 18 U nivers human 3-03 Units ity of isophane 20:03: under the [place] (HUMULIN N 35 skin 2 Medical NPH INSULIN (two) Branch KWIKPEN SC) times daily. metoprolol 2020-0 Yes 50mg Take 50 mg U nivers succinate 3-03 by mouth ity of 50 mg CSpX 20:03: daily. [address] spironolact 2020-0 Yes 25mg Take 25 mg [facility] one 25 mg 3-03 by mouth ity of tablet 20:03: daily. [address] insulin NPH 2020-0 Yes 18U inject 18 U nivers human 3-03 Units ity of isophane 20:03: under the [place] (HUMULIN N 35 skin 2 Medical NPH INSULIN (two) Branch KWIKPEN SC) times daily. metoprolol 2020-0 Yes 50mg Take 50 mg U nivers succinate 3-03 by mouth ity of 50 mg CSpX 20:03: daily. [address] spironolact 2020-0 Yes 25mg Take 25 mg [facility] one 25 mg 3-03 by mouth ity of tablet 20:03: daily. [address] insulin NPH 2020-0 Yes 18U inject 18 U nivers human 3-03 Units ity of isophane 20:03: under the [place] (HUMULIN N 35 skin 2 Medical NPH INSULIN (two) Branch KWIKPEN SC) times daily. furosemide 2020-0 2020- No 40mg Take 40 mg [facility] 40 mg 3-03 03-03 by mouth ity of tablet 18:07: 00:00 daily. [place] 59 :00 [facility] Branch doxycycline 2020-0 Yes [id number] 100mg Take 1 [facility] hyclate 100 3-03 9103 capsule by it y of mg capsule 00:00: mouth [place] 00 every 12 Medical (twelve) Branch hours. furosemide 2020-0 Yes [id number] 40mg Take 1 [facility] 40 mg 3-03 9103 tablet by ity of tablet 00:00: mouth [place] 00 every Medical morning Branch and evening. lisinopril 2020-0 Yes [id number] 5mg Take 1 [facility] 5 mg tablet 3-03 9103 tablet by ity of 00:00: mouth 2 (two) Medical times Branch daily. amoxicillin 2020-0 Yes [id number] 1{tbl} Take 1 [facility] -clavulanat 3-03 9103 tablet by ity of e 00:00: mouth 2 [place] (AUGMENTIN) 00 (two) Medical 875-125 mg times Branch per tablet daily. doxycycline 2020-0 Yes [id number] 100mg Take 1 [facility] hyclate 100 3-03 9103 capsule by it y of mg capsule 00:00: mouth [place] 00 every 12 Medical (twelve) Branch hours. furosemide 2020-0 Yes [id number] 40mg Take 1 [facility] 40 mg 3-03 9103 tablet by ity of tablet 00:00: mouth [place] 00 every Medical morning Branch and evening. lisinopril 2020-0 Yes [id number] 5mg Take 1 [facility] 5 mg tablet 3-03 9103 tablet by ity of 00:00: mouth 2 (two) Medical times Branch daily. amoxicillin 2020-0 Yes [id number] 1{tbl} Take 1 [facility] -clavulanat 3-03 9103 tablet by ity of e 00:00: mouth 2 [place] (AUGMENTIN) 00 (two) Medical 875-125 mg times Branch per tablet daily. doxycycline 2020-0 Yes [id number] 100mg Take 1 [facility] hyclate 100 3-03 9103 capsule by it y of mg capsule 00:00: mouth [place] 00 every 12 Medical (twelve) Branch hours. furosemide 2020-0 Yes [id number] 40mg Take 1 [facility] 40 mg 3-03 9103 tablet by ity of tablet 00:00: mouth [place] 00 every Medical morning Branch and evening. lisinopril 2020-0 Yes [id number] 5mg Take 1 [facility] 5 mg tablet 3-03 9103 tablet by ity of 00:00: mouth 2 [place] (two) Medical times Branch daily. amoxicillin 2020-0 Yes [id number] 1{tbl} Take 1 Univers -clavulanat 3-03 9103 tablet by ity of e 00:00: mouth 2 [place] (AUGMENTIN) 00 (two) Medical 875-125 mg times Branch per tablet daily. doxycycline 2020-0 Yes [id number] 100mg Take 1 [facility] hyclate 100 3-03 9103 capsule by it y of mg capsule 00:00: mouth [place] 00 every 12 Medical (twelve) Branch hours. furosemide 2020-0 Yes [id number] 40mg Take 1 [facility] 40 mg 3-03 9103 tablet by ity of tablet 00:00: mouth [place] 00 every Medical morning Branch and evening. lisinopril 2020-0 Yes [id number] 5mg Take 1 [facility] 5 mg tablet 3-03 9103 tablet by ity of 00:00: mouth 2 [place] 00 (two) Medical times Branch daily. amoxicillin 2020-0 Yes [id number] 1{tbl} Take 1 [facility] -clavulanat 3-03 9103 tablet by ity of e 00:00: mouth 2 [place] (AUGMENTIN) 00 (two) Medical 875-125 mg times Branch per tablet daily. doxycycline 2020-0 Yes [id number] 100mg Take 1 [facility] hyclate 100 3-03 9103 capsule by it y of mg capsule 00:00: mouth [place] 00 every 12 Medical (twelve) Branch hours. furosemide 2020-0 Yes [id number] 40mg Take 1 [facility] 40 mg 3-03 9103 tablet by ity of tablet 00:00: mouth [place] 00 every Medical morning Branch and evening. lisinopril 2020-0 Yes [id number] 5mg Take 1 [facility] 5 mg tablet 3-03 9103 tablet by ity of 00:00: mouth 2 [place] 00 (two) Medical times Branch daily. amoxicillin 2020-0 Yes [id number] 1{tbl} Take 1 [facility] -clavulanat 3-03 9103 tablet by ity of e 00:00: mouth 2 [place] (AUGMENTIN) 00 (two) Medical 875-125 mg times Branch per tablet daily. doxycycline 2020-0 Yes [id number] 100mg Take 1 [facility] hyclate 100 3-03 9103 capsule by it y of mg capsule 00:00: mouth [place] 00 every 12 Medical (twelve) Branch hours. furosemide 2020-0 Yes [id number] 40mg Take 1 [facility] 40 mg 3-03 9103 tablet by ity of tablet 00:00: mouth [place] 00 every Medical morning Branch and evening. furosemide 2020-0 Yes [id number] 40mg Take 1 [facility] 40 mg 3-03 9103 tablet by ity of tablet 00:00: mouth [place] 00 every Medical morning Branch and evening. furosemide 2020-0 Yes [id number] 40mg Take 1 [facility] 40 mg 3-03 9103 tablet by ity of tablet 00:00: mouth [place] 00 every Medical morning Branch and evening. lisinopril 2020-0 Yes [id number] 5mg Take 1 [facility] 5 mg tablet 3-03 9103 tablet by ity of 00:00: mouth 2 [place] 00 (two) Medical times Branch daily. amoxicillin 2020-0 Yes [id number] 1{tbl} Take 1 Univers -clavulanat 3-03 9103 tablet by ity of e 00:00: mouth 2 [place] (AUGMENTIN) 00 (two) Medical 875-125 mg times Branch per tablet daily. doxycycline 2020-0 Yes [id number] 100mg Take 1 [facility] hyclate 100 3-03 9103 capsule by it y of mg capsule 00:00: mouth [place] 00 every 12 Medical (twelve) Branch hours. furosemide 2020-0 Yes [id number] 40mg Take 1 [facility] 40 mg 3-03 9103 tablet by ity of tablet 00:00: mouth [place] 00 every Medical morning Branch and evening. lisinopril 2020-0 Yes [id number] 5mg Take 1 [facility] 5 mg tablet 3-03 9103 tablet by ity of 00:00: mouth 2 [place] 00 (two) Medical times Branch daily. amoxicillin 2020-0 Yes [id number] 1{tbl} Take 1 [facility] -clavulanat 3-03 9103 tablet by ity of e 00:00: mouth 2 [place] (AUGMENTIN) 00 (two) Medical 875-125 mg times Branch per tablet daily. doxycycline 2020-0 Yes [id number] 100mg Take 1 [facility] hyclate 100 3-03 9103 capsule by it y of mg capsule 00:00: mouth [place] 00 every 12 Medical (twelve) Branch hours. furosemide 2020-0 Yes [id number] 40mg Take 1 [facility] 40 mg 3-03 9103 tablet by ity of tablet 00:00: mouth [place] 00 every Medical morning Branch and evening. lisinopril 2020-0 Yes [id number] 5mg Take 1 [facility] 5 mg tablet 3-03 9103 tablet by ity of 00:00: mouth 2 [place] 00 (two) Medical times Branch daily. amoxicillin 2020-0 Yes [id number] 1{tbl} Take 1 [facility] -clavulanat 3-03 9103 tablet by ity of e 00:00: mouth 2 [place] (AUGMENTIN) 00 (two) Medical 875-125 mg times Branch per tablet daily. furosemide 2019- 2020- No [id number] 40mg Take 1 [facility] 40 mg 09-14 9103 tablet by ity of tablet 00:00: 00:00 mouth [place] 00 :00 every Medical morning Branch and evening. furosemide 2019- 2020- No [id number] 40mg Take 1 [facility] 40 mg 09-14 9103 tablet by ity of tablet 00:00: 00:00 mouth [place] 00 :00 every Medical morning Branch and evening. lisinopril 2019- 2020- No [id number] 5mg Take 1 Univers 5 mg tablet 09-14 9103 tablet by it y of 00:00: 00:00 mouth 2 [place] 00 :00 (two) Medical times Branch daily. amoxicillin 2019- 2020- No [id number] 1{tbl} Take 1 Univers -clavulanat 09-14 9103 tablet by it y of e 00:00: 00:00 mouth 2 [place] (AUGMENTIN) 00 :00 (two) Medical 875-125 mg times Branch per tablet daily. doxycycline 2019- 2020- No [id number] 100mg Take 1 [facility] hyclate 100 09-14 9103 capsule by i ty of mg capsule 00:00: 00:00 mouth [place] 00 :00 every 12 Medical (twelve) Branch hours. ceFEPIme Yes 1000mg 1,000 mg, Un michael (MAXIPIME) 09-13 IV ity of 1,000 mg in 17:45: Piggyback, [place] NaCl 0.9% 00 Q12H ABX, Medic al (NS) 50 mL First dose Bra nch MINI-BAG on Sat09/14/19 at 1145, Until Discontinu ed, 50 mL
R russ for Anti-Infec tive: Empiric Therapy for Suspected Infection< br>Empiric Therapy Site: Respirator y
Durat ion of therapy: 72 hours bumetanide 2020- No 1mg 1 mg, Slow Univers (BUMEX) 09-13 IV Push, ity of injection 1 15:00: 16:50 Q8H, First [place] mg 00 :02 dose on Medical 09/14/19 Branch at 0900, Until Discontinu ed, Routine FENTanyl PF 2020-0 Yes 25ug 25 mcg, Uni vers (SUBLIMAZE 09-13 Slow IV ity of (PF)) 02:51: Push, [place] injection 25 Q6HPRN, Medical 25 mcg Starting Branch [place] 09/13/19 at 2050, Until Discontinu ed, Routine, Pain (scale 7-10) azithromyci 2020-0 Yes 500mg 500 mg, Un michael n 3- Oral, ity of (ZITHROMAX) 15:00: DAILY, [place] tablet 500 00 First dose Med ical mg on [facility] 09/13/19 at 0900, Until Discontinu ed, KATHY
Re ason for Anti-Infec tive: Empiric Therapy for Suspected Infection< br>Empiric Therapy Site: Respirator y
Durat ion of therapy: 72 hours enoxaparin 2020-0 Yes 40mg 40 mg, Unive rs (LOVENOX) 09-12 Subcutaneo ity of injection 15:00: [place], DAILY, [place] 40 mg 00 First dose Medical on [facility] 09/13/19 at 0900, Until Discontinu ed, Routine insulin NPH 2020-0 Yes 18U 18 Units, U nivers (HUMULIN N) 09-12 Subcutaneo it y of injection 15:00: us, [place] 18 Units 00 QAM+PM, Medical First dose Branch on [place] 09/13/19 at 0900, Until Discontinu ed clopidogreL 2020-0 Yes 75mg 75 mg, Univ ers (PLAVIX) 09-12 Oral, ity of tablet 75 15:00: DAILY, [place] mg 00 First dose Medical on [facility] 09/13/19 at 0900, Until Discontinu ed, Routine aspirin 2020-0 Yes 81mg 81 mg, Univers chewable 09-12 Oral, ity of tablet 81 15:00: DAILY, [place] mg 00 First dose Medical on [facility] 09/13/19 at 0900, Until Discontinu ed, Routine lisinopril 2020-0 Yes 5mg 5 mg, Univer s (PRINIVIL,Z 09-12 Oral, BID, it y of ESTRIL) 14:00: First [place] tablet 5 mg 00 on [place] Medica l 09/13/19 at Branch 0800, Until Discontinu ed, Routine ferrous 2020-0 Yes 325mg 325 mg, Univer s sulfate 09-12 Oral, TID ity of tablet 325 14:00: MEALS, [place] mg 00 First dose Medical on [place] [facility] 09/13/19 at 0800, Until Discontinu ed, Routine insulin 2020-0 Yes 12U 12 Units, Unive rs regular 09-12 Subcutaneo ity of human 13:30: us, BIDAC, [place] (HUMULIN R) 00 First dose Me dical [...] First dose [place] mg 00 on [facility] Medical 09/12/19 at Branch 2100, Until Discontinu ed, Routine Sliding 2020-0 Yes Subcutaneo Univ ers Scale 3 us, TID ity of Insulin - 03:00: MEALS+HS, You as Lispro 00 First dose Medical (HumaLOG) + on [facility] Branch [facility] 09/12/19 at Testing 2100, Until Discontinu ed, Routine benzonatate 2020-0 Yes 100mg 100 mg, Un michael (TESSALON 09-12 Oral, ity of PERLES) 02:26: Q6HPRN, [place] capsule 100 20 Starting Medi lizzy mg Sat Branch 09/12/19 at 2026, Until Discontinu ed, Routine, Cough ipratropium 2020-0 Yes .5mg 0.5 mg, Uni vers (ATROVENT) 09-12 Inhalation ity of 0.02 % 02:00: , QID, [place] nebulizer 00 First dose Medi lizzy solution on Sat Branch 0.5 mg 09/12/19 at 1999, Until Discontinu ed, Routine docusate 2020-0 Yes 100mg 100 mg, Unive rs (COLACE) 09-12 Oral, BID, ity o f capsule 100 02:00: First dose [place] mg 00 on Sat Medical 09/12/19 at Branch 2000, Until Discontinu ed, Routine ondansetron 2020-0 Yes 4mg 4 mg, Slow Univers (ZOFRAN 09-12 IV Push, ity of (PF)) 00:11: Q6HPRN, [place] injection 4 27 Starting Medi lizzy mg Sat [place] 09/12/19 at 1811, Until Discontinu ed, Routine, Nausea and Vomiting (N/V) acetaminoph 2020-0 Yes 650mg 650 mg, Un michael en 09-12 Oral, ity of (TYLENOL) 00:11: Q6HPRN, [place] tablet 650 19 Starting Medic al mg [facility] Branch 09/12/19 at 1811, Until Discontinu ed, [...] at 1215, Until Discontinu ed, Routine heparin 2019-2019- No 4000U 4,000 Univers 5,000 Units, ity of unit/mL 18:00: 18:09 Intravenou [place] as injection 00 :00 s, ONCE, 1 Medi lizzy 4,000 Units dose, Sat Bra nch 09/12/19 at 1200, Routine azithromyci 2019- No 500mg 500 mg, IV Univers n Piggyback, ity of (ZITHROMAX) 17:00: 16:33 ONCE, 1 [place] 500 mg in 00 :00 dose, Sat Medic al NaCl 0.9% 09/12/19 at Bran ch (NS) 250 mL 1100, STAT
Re ason for Anti-Infec tive: Empiric Therapy for Suspected Infection< br>Empiric Therapy Site: Respirator y
Durat ion of therapy: 72 hours cefTRIAXone 2019- No 1000mg 1,000 mg, Univers (ROCEPHIN) IV ity of 1,000 mg in 17:00: 16:57 Piggyback, [place] NaCl 0.9% 00 :00 ONCE, 1 Medical (NS) 50 mL dose, Sat Bran ch MINI-BAG 09/12/19 at 1100, 50 mL
Reas on for Anti-Infec tive: Empiric Therapy for Suspected Infection< br>Empiric Therapy Site: Skin / Soft tissue
Duration of therapy: 72 hours
F aculty member approving Restricted medication : SANG LEAL metoprolol 2019-0 Yes 50mg Take 50 mg U nivers succinate 2-24 by mouth ity of 50 mg CSpX 20:31: daily. [address] spironolact 2020-0 Yes 25mg Take 25 mg Univers one 25 mg 2-24 by mouth ity of tablet 20:31: daily. [address] furosemide 2020-0 Yes 40mg Take 40 mg U nivers 40 mg 2-24 by mouth ity of tablet 20:31: daily. [address] insulin NPH 2020-0 Yes 18U inject 18 U nivers human 2-24 Units ity of isophane 20:31: under the [place] (HUMULIN N 45 skin 2 Medical NPH INSULIN (two) Branch KWIKPEN SC) times daily. metoprolol 2020-0 Yes 50mg Take 50 mg U nivers succinate 2-24 by mouth ity of 50 mg CSpX 20:31: daily. [address] spironolact 2020-0 Yes 25mg Take 25 mg Univers one 25 mg 2-24 by mouth ity of tablet 20:31: daily. [address] furosemide 2020-0 Yes 40mg Take 40 mg U nivers 40 mg 2-24 by mouth ity of tablet 20:31: daily. [address] insulin NPH 2020-0 Yes 18U inject 18 U nivers human 2-24 Units ity of isophane 20:31: under the [place] (HUMULIN N 45 skin 2 Medical NPH INSULIN (two) Branch KWIKPEN [place]) times daily. metoprolol 2020-0 Yes 50mg Take 50 mg U nivers succinate 2-24 by mouth ity of 50 mg CSpX 20:31: daily. [address] spironolact 2020-0 Yes 25mg Take 25 mg Univers one 25 mg 2-24 by mouth ity of tablet 20:31: daily. [address] furosemide 2020-0 Yes 40mg Take 40 mg U nivers 40 mg 2-24 by mouth ity of tablet 20:31: daily. [address] insulin NPH 2020-0 Yes 18U inject 18 U nivers human 2-24 Units ity of isophane 20:31: [place] (HUMULIN N 45 skin 2 Medical NPH INSULIN (two) Branch KWIKPEN SC) times daily. clopidogreL 2020-0 Yes [id number] 75mg Take 1 Univers 75 mg 2-24 tablet by ity of tablet 00:00: mouth [place] 00 daily. [facility] Branch nicotine 14 2020-0 Yes [id number] 1{patch Apply 1 Univers mg/24 hr 2-24 } Patch to ity of patch 00:00: area(s) [place] 00 every 24 Medical (twenty-fo Branch ur) hours. clopidogreL 2020-0 Yes [id number] 75mg Take 1 Univers 75 mg 2-24 tablet by ity of tablet 00:00: mouth [place] 00 daily. [facility] nicotine 14 2020-0 Yes [id number] 1{patch Apply 1 Univers mg/24 hr 2-24 } Patch to ity of patch 00:00: area() [place] 00 every 24 Medical ([facility] Branch ur) hours. clopidogreL 2020-0 Yes [id number] 75mg Take 1 Univers 75 mg 2-24 tablet by ity of tablet 00:00: mouth [place] 00 daily. Medical Branch nicotine 14 2020-0 Yes [id number] 1{patch Apply 1 Univers mg/24 hr 2-24 } Patch to ity of patch 00:00: [facility]() [place] 00 every 24 Medical ([facility] Branch ur) hours. clopidogreL 2020-0 Yes [id number] 75mg Take 1 Univers 75 mg 2-24 tablet by ity of tablet 00:00: mouth [place] 00 daily. Medical Branch nicotine 14 2020-0 Yes [id number] 1{patch Apply 1 Univers mg/24 hr 2-24 } Patch to ity of patch 00:00: [facility]() [place] 00 every 24 Medical ([facility] Branch ur) hours. clopidogreL 2020-0 Yes [id number] 75mg Take 1 Univers 75 mg 2-24 tablet by ity of tablet 00:00: mouth [place] 00 daily. Medical Branch nicotine 14 2020-0 Yes [id number] 1{patch Apply 1 Univers mg/24 hr 2-24 } Patch to ity of patch 00:00: [facility]() [place] 00 every 24 Medical ([facility] Branch ur) hours. clopidogreL 2020-0 Yes [id number] 75mg Take 1 Univers 75 mg 2-24 tablet by ity of tablet 00:00: mouth [place] 00 daily. Medical Branch nicotine 14 2020-0 Yes [id number] 1{patch Apply 1 Univers mg/24 hr 2-24 } Patch to ity of patch 00:00: [facility]() [place] 00 every 24 Medical ([facility] Branch ur) hours. clopidogreL 2020-0 Yes [id number] 75mg Take 1 Univers 75 mg 2-24 tablet by ity of tablet 00:00: mouth [place] 00 daily. Medical Branch nicotine 14 2020-0 Yes [id number] 1{patch Apply 1 Univers mg/24 hr 2-24 } Patch to ity of patch 00:00: [facility]() [place] 00 every 24 Medical ([facility] Branch ur) hours. clopidogreL 2020-0 Yes [id number] 75mg Take 1 Univers 75 mg 2-24 tablet by ity of tablet 00:00: mouth [place] 00 daily. Medical Branch nicotine 14 2020-0 Yes [id number] 1{patch Apply 1 Univers mg/24 hr 2-24 } Patch to ity of patch 00:00: area(s) [place] 00 every 24 Medical (twenty-fo Branch ur) hours. nicotine 14 2020-0 Yes [id number] 1{patch Apply 1 Univers mg/24 hr 2-24 } Patch to ity of patch 00:00: area(s) [place] 00 every 24 Medical (twenty-fo Branch ur) hours. nicotine 14 2020-0 Yes [id number] 1{patch Apply 1 Univers mg/24 hr 2-24 } Patch to ity of patch 00:00: area(s) [place] 00 every 24 Medical (twenty-fo Branch ur) hours. nicotine 14 2020-0 Yes [id number] 1{patch Apply 1 Univers mg/24 hr 2-24 } Patch to ity of patch 00:00: [facility](s) [place] 00 every 24 Medical (twenty-fo Branch ur) hours. nicotine 14 2020-0 Yes [id number] 1{patch Apply 1 Univers mg/24 hr 2-24 } Patch to ity of patch 00:00: [facility](s) [place] 00 every 24 Medical (twenty-fo Branch ur) hours. nicotine 14 2019-0 Yes [id number] 1{patch Apply 1 Univers mg/24 hr 2-24 } Patch to ity of patch 00:00: area(s) [place] 00 every 24 Medical (twenty-fo Branch ur) hours. nicotine 14 2020-0 Yes [id number] 1{patch Apply 1 Univers mg/24 hr 2-24 } Patch to ity of patch 00:00: [facility](s) [place] 00 every 24 Medical (twenty-fo Branch ur) hours. nicotine 14 2020-0 Yes [id number] 1{patch Apply 1 Univers mg/24 hr 2-24 } Patch to ity of patch 00:00: area(s) [place] 00 every 24 Medical (twenty-fo Branch ur) hours. nicotine 14 2020-0 Yes [id number] 1{patch Apply 1 Univers mg/24 hr 2-24 } Patch to ity of patch 00:00: area(s) [place] 00 every 24 Medical (twenty-fo Branch ur) hours. nicotine 14 2020-0 Yes [id number] 1{patch Apply 1 Univers mg/24 hr 2-24 } Patch to ity of patch 00:00: area(s) [place] 00 every 24 Medical (twenty-fo Branch ur) hours. nicotine 14 2020-0 Yes [id number] 1{patch Apply 1 Univers mg/24 hr 2-24 } Patch to ity of patch 00:00: area(s) [place] 00 every 24 Medical (twenty-fo Branch ur) hours. nicotine 14 2020-0 Yes [id number] 1{patch Apply 1 Univers mg/24 hr 2-24 } Patch to ity of patch 00:00: area(s) [place] 00 every 24 Medical (twenty-fo Branch ur) hours. nicotine 14 2020-0 Yes [id number] 1{patch Apply 1 Univers mg/24 hr 2-24 } Patch to ity of patch 00:00: area(s) [place] 00 every 24 Medical (twenty-fo Branch ur) hours. nicotine 14 2020-0 Yes [id number] 1{patch Apply 1 Univers mg/24 hr 2-24 } Patch to ity of patch 00:00: area(s) [place] 00 every 24 Medical (twenty-fo Branch ur) hours. nicotine 14 2020-0 Yes [id number] 1{patch Apply 1 Univers mg/24 hr 2-24 } Patch to ity of patch 00:00: area(s) [place] 00 every 24 Medical (twenty-fo Branch ur) hours. nicotine 14 2020-0 Yes [id number] 1{patch Apply 1 Univers mg/24 hr 2-24 } Patch to ity of patch 00:00: area(s) [place] 00 every 24 Medical (twenty-fo Branch ur) hours. nicotine 14 2020-0 Yes [id number] 1{patch Apply 1 Univers mg/24 hr 2-24 } Patch to ity of patch 00:00: area(s) [place] 00 every 24 Medical (twenty-fo Branch ur) hours. nicotine 14 2020-0 Yes [id number] 1{patch Apply 1 Univers mg/24 hr 2-24 } Patch to ity of patch 00:00: area(s) [place] 00 every 24 Medical (twenty-fo Branch ur) hours. nicotine 14 2020-0 Yes [id number] 1{patch Apply 1 Univers mg/24 hr 2-24 } Patch to ity of patch 00:00: area(s) [place] 00 every 24 Medical (twenty-fo Branch ur) hours. nicotine 14 2020-0 Yes [id number] 1{patch Apply 1 Univers mg/24 hr 2-24 } Patch to ity of patch 00:00: area(s) [place] 00 every 24 Medical (twenty-fo Branch ur) hours. nicotine 14 2020-0 Yes [id number] 1{patch Apply 1 Univers mg/24 hr 2-24 } Patch to ity of patch 00:00: area(s) [place] 00 every 24 Medical (twenty-fo Branch ur) hours. nicotine 14 2020-0 Yes [id number] 1{patch Apply 1 Univers mg/24 hr 2-24 } Patch to ity of patch 00:00: area(s) [place] 00 every 24 Medical (twenty-fo Branch ur) hours. nicotine 14 2020-0 Yes [id number] 1{patch Apply 1 Univers mg/24 hr 2-24 } Patch to ity of patch 00:00: area(s) [place] 00 every 24 Medical (twenty-fo Branch ur) hours. nicotine 14 2020-0 Yes [id number] 1{patch Apply 1 Univers mg/24 hr 2-24 } Patch to ity of patch 00:00: [facility](s) [place] 00 every 24 Medical (twenty-fo Branch ur) hours. nicotine 14 2020-0 Yes [id number] 1{patch Apply 1 Univers mg/24 hr 2-24 } Patch to ity of patch 00:00: area(s) [place] 00 every 24 Medical (twenty-fo Branch ur) hours. nicotine 14 2020-0 Yes [id number] 1{patch Apply 1 Univers mg/24 hr 2-24 } Patch to ity of patch 00:00: area(s) [place] 00 every 24 Medical (twenty-fo Branch ur) hours. nicotine 14 2020-0 Yes [id number] 1{patch Apply 1 Univers mg/24 hr 2-24 } Patch to ity of patch 00:00: area(s) [place] 00 every 24 Medical (twenty-fo Branch ur) hours. nicotine 14 2020-0 Yes [id number] 1{patch Apply 1 Univers mg/24 hr 2-24 } Patch to ity of patch 00:00: area(s) [place] 00 every 24 Medical (twenty-fo Branch ur) hours. nicotine 14 2020-0 Yes [id number] 1{patch Apply 1 Univers mg/24 hr 2-24 } Patch to ity of patch 00:00: area(s) [place] 00 every 24 Medical (twenty-fo Branch ur) hours. nicotine 14 2020-0 Yes [id number] 1{patch Apply 1 Univers mg/24 hr 2-24 } Patch to ity of patch 00:00: area(s) [place] 00 every 24 Medical (twenty-fo Branch ur) hours. nicotine 14 2020-0 Yes [id number] 1{patch Apply 1 Univers mg/24 hr 2-24 } Patch to ity of patch 00:00: [facility]([place] [address] every 24 Medical (twenty-fo Branch ur) hours. nicotine 14 2020-0 Yes [id number] 1{patch Apply 1 Univers mg/24 hr 2-24 } Patch to ity of patch 00:00: [facility]([place] [address] every 24 Medical (twenty-fo Branch ur) hours. nicotine 14 2020-0 Yes [id number] 1{patch Apply 1 Univers mg/24 hr 2-24 } Patch to ity of patch 00:00: [facility]([place] [address] every 24 Medical (twenty-fo Branch ur) hours. nicotine 14 2020-0 Yes [id number] 1{patch Apply 1 Univers mg/24 hr 2-24 } Patch to ity of patch 00:00: [facility]([place] [address] every 24 Medical (twenty-fo Branch ur) hours. nicotine 14 2020-0 Yes [id number] 1{patch Apply 1 Univers mg/24 hr 2-24 } Patch to ity of patch 00:00: [facility] 00 every 24 Medical (twenty-fo Branch ur) hours. nicotine 14 2020-0 Yes [id number] 1{patch Apply 1 Univers mg/24 hr 2-24 } Patch to ity of patch 00:00: [facility]([place] [address] every 24 Medical (twenty-fo Branch ur) hours. nicotine 14 2020-0 Yes [id number] 1{patch Apply 1 Univers mg/24 hr 2-24 } Patch to ity of patch 00:00: [facility] 00 every 24 Medical (twenty-fo Branch ur) hours. nicotine 14 2020-0 Yes [id number] 1{patch Apply 1 Univers mg/24 hr 2-24 } Patch to ity of patch 00:00: [facility]([place] [address] every 24 Medical (twenty-fo Branch ur) hours. clopidogreL 2020-0 Yes [id number] 75mg Take 1 Univers 75 mg 2-24 tablet by ity of tablet 00:00: [facility] [place] 00 daily. Medical Branch nicotine 14 2020-0 Yes [id number] 1{patch Apply 1 Univers mg/24 hr 2-24 } Patch to ity of patch 00:00: [facility] 00 every 24 Medical (twenty-fo Branch ur) hours. clopidogreL 2020-0 Yes [id number] 75mg Take 1 Univers 75 mg 2-24 tablet by ity of tablet 00:00: mouth [place] 00 daily. Medical Branch nicotine 14 2020-0 Yes [id number] 1{patch Apply 1 Univers mg/24 hr 2-24 } Patch to ity of patch 00:00: [facility](s) [place] 00 every 24 Medical (twenty-fo Branch ur) hours. clopidogreL 2020-0 Yes [id number] 75mg Take 1 Univers 75 mg 2-24 tablet by ity of tablet 00:00: mouth [place] 00 daily. Medical Branch nicotine 14 2020-0 Yes [id number] 1{patch Apply 1 Univers mg/24 hr 2-24 } Patch to ity of patch 00:00: [facility](s) [place] 00 every 24 Medical (twenty-fo Branch ur) hours. clopidogreL 2020-0 Yes [id number] 75mg Take 1 Univers 75 mg 2-24 tablet by ity of tablet 00:00: mouth [place] 00 daily. Medical Branch nicotine 14 2020-0 Yes [id number] 1{patch Apply 1 Univers mg/24 hr 2-24 } Patch to ity of patch 00:00: [facility]() [place] 00 every 24 Medical (twenty-fo Branch ur) hours. clopidogreL 2020-0 Yes [id number] 75mg Take 1 Univers 75 mg 2-24 tablet by ity of tablet 00:00: mouth [place] 00 daily. Medical Branch nicotine 14 2020-0 Yes [id number] 1{patch Apply 1 Univers mg/24 hr 2-24 } Patch to ity of patch 00:00: [facility]() [place] 00 every 24 Medical (twenty-fo Branch ur) hours. nicotine 14 2020-0 2020- No [id number] 1{patch Apply 1 Univers mg/24 hr 2-24 04-10 } Patch to ity of patch 00:00: 00:00 area(s) [place] 00 :00 every 24 Medical (twenty-fo Branch ur) hours. clopidogreL 2020-0 2020- No [id number] 75mg Take 1 Univers 75 mg 2-24 04-06 tablet by ity of tablet 00:00: 00:00 mouth [place] 00 :00 daily. Medical Branch clopidogreL 2020-0 2020- No [id number] 75mg Take 1 Univers 75 mg 2-24 04-06 tablet by ity of tablet 00:00: 00:00 mouth [place] 00 :00 daily. Medical Branch insulin 2020-0 2020- No 20U inject 20 Univ ers glargine,hu - 02-23 Units ity of m.rec.anlog 15:33: 00:00 under the [place] (LANTUS 20 :00 skin 2 Medical U-100 (two) [place] INSULIN SC) times daily. insulin 2020-0 2020- No inject Univers aspart 09-06- under the ity of injection 15:33: 00:00 skin [place] 20 :00 before Medical meals. Branch HYDROcodone 2020-0 Yes 1{tbl} 1 tablet, Univers -acetaminop - Oral, ity of hen (NORCO 15:04: Q6HPRN, [place] 5) 5-325 mg 54 Starting Medi lizzy tablet 1 [facility] tablet 09/06/19 at 0904, Until Discontinu ed, Routine, Pain (scale 4-6) insulin 2019-0 Yes 40U 40 Units, Unive rs glargine 2-23 Subcutaneo ity o f (LANTUS 14:06: us, Q24H, [place] U-100) 00 First dose Medical injection on [facility] 40 Units 09/06/19 at 0815, Until Discontinu ed SERTraline 2019-0 Yes 50mg 50 mg, Unive rs (ZOLOFT) 2-23 Oral, QHS, ity o f tablet 50 03:00: First dose [place] mg 00 on [facility] 09/05/19 at [place] 2100, Until Discontinu ed, Routine docusate 2019-0 Yes 100mg 100 mg, Unive rs (COLACE) 2-23 Oral, BID, ity o f capsule 100 02:00: First dose [place] mg 00 on [facility] 09/05/19 at [place] 2000, Until Discontinu ed, Routine atorvastati 2020-0 Yes [id number] 80mg Take 1 Univers n 80 mg 2-23 tablet by ity of tablet 00:00: mouth at [place] 00 bedtime. [facility] Branch atorvastati 2020-0 Yes [id number] 80mg Take 1 Univers n 80 mg 2-23 tablet by ity of tablet 00:00: mouth at [place] 00 bedtime. [facility] Branch atorvastati 2020-0 Yes [id number] 80mg Take 1 Univers n 80 mg 2-23 tablet by ity of tablet 00:00: mouth at [place] [address] bedtime. Medical Branch atorvastati 2020-0 Yes [id number] 80mg Take 1 Univers n 80 mg 2-23 tablet by ity of tablet 00:00: mouth at [place] [address] bedtime. Medical Branch atorvastati 2020-0 Yes [id number] 80mg Take 1 Univers n 80 mg 2-23 tablet by ity of tablet 00:00: mouth at [place] [address] bedtime. Medical Branch atorvastati 2020-0 Yes [id number] 80mg Take 1 Univers n 80 mg 2-23 tablet by ity of tablet 00:00: mouth at [place] [address] bedtime. Medical Branch atorvastati 2020-0 Yes [id number] 80mg Take 1 Univers n 80 mg 2-23 tablet by ity of tablet 00:00: mouth at [place] [address] bedtime. Medical Branch atorvastati 2020-0 Yes [id number] 80mg Take 1 Univers n 80 mg 2-23 tablet by ity of tablet 00:00: mouth at [place] [address] bedtime. Medical Branch atorvastati 2019-0 Yes [id number] 80mg Take 1 Univers n 80 mg 2-23 tablet by ity of tablet 00:00: mouth at [place] [address] bedtime. Medical Branch atorvastati 2019-0 Yes [id number] 80mg Take 1 Univers n 80 mg 2-23 tablet by ity of tablet 00:00: mouth at [place] [address] bedtime. Medical Branch atorvastati 2019-0 Yes [id number] 80mg Take 1 Univers n 80 mg 2-23 tablet by ity of tablet 00:00: mouth at [place] [address] bedtime. Medical Branch atorvastati 2020-0 Yes [id number] 80mg Take 1 Univers n 80 mg 2-23 tablet by ity of tablet 00:00: mouth at [place] [address] bedtime. Medical Branch atorvastati 2020-0 Yes [id number] 80mg Take 1 Univers n 80 mg 2-23 tablet by ity of tablet 00:00: mouth at [place] [address] bedtime. Medical Branch atorvastati 2019-0 2020- No [id number] 80mg Take 1 Univers n 80 mg 2-23 04-06 tablet by ity of tablet 00:00: 00:00 mouth at [place] 00 :00 bedtime. Medical Branch atorvastati 2019-0 2020- No [id number] 80mg Take 1 Univers n 80 mg 2-23 04-06 tablet by ity of tablet 00:00: 00:00 mouth at [place] 00 :00 bedtime. Medical Branch Sliding 2020-0 Yes Subcutaneo Univ ers Scale 2-22 us, AC+HS, ity of Insulin - 17:30: First dose [place] Aspart 00 on [facility] Medical (NOVOLOG) + 09/05/19 at anch Fsbg 1130, Testing Until Discontinu ed, Routine ipratropium 2020-0 Yes 3mL 3 mL, Unive rs -albuterol - Inhalation ity of (DUONEB) 14:45: , Q6HPRN, [place] 0.5 mg-3 00 Starting Medical mg(2.5 mg [facility] base)/3 mL 09/05/19 at nebulizer 0845, solution 3 Until mL Discontinu ed, Routine, Wheezing, Shortness of Breath, Bronchospa sm ondansetron 2020-0 Yes 4mg 4 mg, Slow Univers (ZOFRAN - IV Push, ity of (PF)) 14:43: Q6HPRN, [place] injection 4 22 Starting Medi lizzy mg [facility] 09/05/19 at 0843, Until Discontinu ed, Routine, Nausea and Vomiting (N/V) KCL 20 2020-0 2020- No 20meq 20 mEq, Univer s mEq/15 mL 09-05- Oral, ity of solution 20 11:45: 11:29 ONCE, 1 [place] mEq 00 :00 dose, [facility] Medical 09/05/19 at Branch 0545, Routine melatonin 2020-0 Yes 3mg 3 mg, Univers (MELATIN) - Oral, QHS, ity of tablet 3 mg 03:00: First dose [place] 00 on Fri Medical 09/04/19 at Branch 2100, Until Discontinu ed, Routine magnesium 2020-0 2020- No 2g 2 g, IV Univ ers sulfate in 09-04- Piggyback, it y of water 2 13:30: 12:41 ONCE, 1 [place] gram/50 mL 00 :00 dose, Fri Medi lizzy (4 %) 09/04/19 at [place] infusion 2 0730, g Routine KCL 2020-0 2020- No 40meq 40 mEq, Univers (KLOR-CON 09-04 Oral, ity of M20) tablet 12:30: 12:43 ONCE, 1 [place] 40 mEq 00 :00 dose, Fri Medical 09/04/19 at Branch 0630, Routine clopidogreL 2020-0 Yes 75mg 75 mg, Univ ers (PLAVIX) 09-03 Oral, ity of tablet 75 15:00: DAILY, [place] mg 00 First dose Medical on [place] Branch 09/03/19 at 0900, Until Discontinu ed, Routine
meat service team member approving Restricted medication : JENIFFER MORAN metoclopram 2019-0 2020- No 10mg 10 mg, Uni vers [...] 30 Branch (NS) Minutes, piggyback Q6HPRN, Starting 09/02/19 at 1550, Until Discontinu ed, Routine, Nausea and Vomiting (N/V) proMETHazin 2020-0 Yes 25mg 25 mg, Univ ers e 09-02 Intravenou ity of (PHENERGAN) 17:08: s, Q4HPRN, [place] 25 mg in 32 Starting Medical NaCl 0.9% Sat Branch (NS) 50 mL 09/02/19 at piggyback 1108, Until Discontinu ed, 50 mL sennosides 2019-0 Yes 8.6mg 8.6 mg, Uni vers (SENOKOT) 09-02 Oral, ity of tablet 8.6 15:00: DAILY, [place] mg 00 First dose Medical on Sat Branch 09/02/19 at 0900, Until Discontinu ed, Routine docusate 2019-0 2020- No 100mg 100 mg, Univ ers [...] at 0800, Until Discontinu ed, Routine metoprolol 2019- Yes 25mg 25 mg, Unive rs tartrate 09-02 Oral, BID, ity o f (LOPRESSOR) 14:00: First dose [place] tablet 25 00 on Sat Medical mg 09/02/19 at Branch 0800, Until Discontinu ed, Routine heparin 2019- Yes 5000U 5,000 Univers (porcine) 09-02 Units, [...] Piggyback 1 2300, 100 g mL NORepinephr 2020- No .05ug/k 0.05-3 Univers ine 4 mg in 09-02 g/min mcg/kg/min ity of D5W 250 mL 01:20: 14:43 ?78.3 kg [place] infusion 10 :44 (14.6813-8 Medic al RTU 80.875 Branch mL/hr, rounded to 14.68-880. 88 mL/hr), IV Infusion, TITRATE, MAP Goal > or = 65 mmHg, Starting 09/01/19 at 1920
In itiate titration at 0.05 [...] Medical 09/01/19 at Branch 1630, Routine calcium 2020-0 2020- No 1000mg 1,000 mg, Un michael chloride 09-01 Intravenou ity of 100 mg/mL 22:15: 21:22 s, ONCE, 1 [place] (10 %) 00 :00 dose, Tue Medical syringe 09/01/19 at Branch 1,000 mg 1615, Routine magnesium 2020-0 2020- No 2g 2 g, IV Univ ers sulfate in 09-01 Piggyback, it y of water 2 22:15: 21:23 ONCE, 1 [place] gram/50 mL 00 :00 dose, Tue Medi lizzy (4 %) 09/01/19 at Branch infusion 2 1615, g Routine calcium 2019-0 2020- No 1000mg 1,000 mg, Un michael chloride 09-01 Intravenou ity of 100 mg/mL 20:45: 19:53 s, ONCE, 1 [place] (10 %) 00 :00 dose, Tue Medical syringe 09/01/19 at Branch 1,000 mg 1445, Routine sodium 2019-0 2020- No 1meq/kg 78.3 mEq Uni vers bicarbonate 09-01 (1 mEq/kg it y of 1 mEq/mL 20:45: 19:53 ?78.3 kg), [place] (8.4 %) 00 :00 Slow IV Medical injection Push, Branch 78.3 mEq ONCE, 1 dose, 09/01/19 at 1445, Routine albumin 2019-0 2020- No 12.5g 12.5 g, IV Un michael [...] without an adequate hemodynami c response. FENTanyl 2020-0 2020- No 300ug 300 mcg, Uni vers HOUSE STEWARD/STEWARDESS (5 2-18 02-19 Intravenou ity of mcg/mL NS) 20:30: 03:59 s, 60 mL, [place] 00 :16 CONTINUOUS Medical , Starting Branch Sat09/01/19 at 1430, Until Sat09/01/19 at 2159 propofol IV 2019-0 2019- No 5ug/kg/ 5-75 Un michael infusion -18 02-19 min mcg/kg/min ity of 20:13: 20:12 ?78.3 kg [place] 05 :05 (2.349-35. Medical 235 mL/hr, Branch rounded to 2.35-35.24 mL/hr), IV Infusion, TITRATE, Sedation-R ASS score (0 to -1), Starting 09/01/19 at 1413, For 1 day
Ini tiate [...] [place] mg 00 First dose Medical on [facility] 09/01/19 at 1330, Until Discontinu ed, Routine ceFAZolin 2019-0 2019- No 2000mg 2 g (2,000 Univers in dextrose 18 02-19 mg), IV ity of (iso-os) 19:30: [...] 4 32 :48 Starting Medi lizzy mg [facility] 09/01/19 at 1319, Until 09/05/19 at 0851, KATHY, Nausea and Vomiting (N/V) naloxone 2020-0 Yes .1mg 0.1 mg, Univer s (NARCAN) 2-18 Slow IV ity of injection 19:17: Push, [place] 0.1 mg 45 [facility] 09/01/19 at 1317, Until Discontinu ed, Routine furosemide 2020-0 Yes 20mg 20 mg, IV Un michael (LASIX) 2-18 Push, PRN, ity of injection 19:13: 2 doses, [place] 20 mg 07 Starting Medical [facility] 09/01/19 at 1313, Until Discontinu ed, KATHY, Pressure Maintenanc e NaCl 0.9% 2020-0 Yes 250mL at 999 Unive rs (NS) bolus 2-18 mL/hr, 250 ity of infusion 19:13: mL, IV [place] 250 mL 07 Infusion, Medical PRN - SEE Branch INSTRUCTIO NS, 3 doses, Starting [facility] 09/01/19 at 1313, Until Discontinu ed, KATHY glucagon 2020-0 Yes 1mg 1 mg, Univers (GLUCAGEN 2-18 Intramuscu ity of DIAGNOSTIC 19:13: lar, PRN, [place] KIT) 06 Starting Medical injection 1 [facility] 09/01/19 at 1313, Until Discontinu ed, KATHY, Blood Glucose < or = 70 mg/dL and patient is unable to swallow or has mental changes. dextrose 50 2020-0 Yes 25mL 25 mL, Univ ers % in water 2-18 Slow IV ity of (D50W) 19:13: Push, PRN, [place] injection 06 Starting Medica l 25 mL Tue Branch 09/01/19 at 1313, Until Discontinu [...] IV [place] (HUMULIN R) 06 :44 Infusion, Med ical 100 Units TITRATE, Branch in D5W 100 Starting mL infusion 09/01/19 at 1313, Until 09/05/19 at 0843 acetaminoph 2020-0 Yes 650mg 650 mg, Un michael en 09-01 Rectal, ity of (TYLENOL) 19:13: Q6HPRN, [place] suppository 05 Starting Medi lizzy 650 mg Tue Branch 09/01/19 at 1313, Until Discontinu ed, KATHY, Temp > 38.5 C gentamicin 2020-0 Yes PRN, Univers 40 mg/mL 80 09-01 Starting ity of mg, 14:28: e [place] vancomycin 00 09/01/19 at Med ical (VANCOCIN) 0828, Branch 1,000 mg in Intra-op NaCl 0.9% (NS) 1,000 mL OR irrigation heparin 2020-0 Yes PRN, Univers 1,000 - Starting ity of unit/mL 14:27: e [place] 5,000 Units 00 09/01/19 at De dical in NaCl 0827, Branch 0.9% (NS) Intra-op 500 mL OR irrigation papaverine 2020-0 Yes PRN, Univers 60 mg in -18 Starting ity of NaCl 0.9% 14:27: e [place] (NS) 60 mL 00 09/01/19 at Med ical OR 0827, Branch irrigation Intra-op heparin 2020-0 Yes PRN, Univers 1,000 09-01 Starting ity of unit/mL 14:25: Tue [place] [...] Until Discontinu ed, Routine, Wound care furosemide 2019-0 2020- No 40mg 40 mg, [facility] ers (LASIX) 08-29 Slow IV ity of injection 02:00: 17:00 Push, [place] 40 mg 00 :51 Q12H, Medical First dose Branch on Sat08/28/19 at 2000, Until Discontinu ed, Routine furosemide 2020-0 2020- No 20mg 20 mg, [facility] ers (LASIX) 08-28 Slow IV ity of injection 16:45: 21:51 Push, [place] 20 mg 00 :27 DAILY, Medical First dose Branch on Sat08/28/19 at 1045, Until Discontinu ed, Routine lisinopril 2020-0 2020- No 10mg 10 mg, [place] [facility] ers (PRINIVIL,Z 08-2719 Oral, ity of ESTRIL) 15:00: 13:18 DAILY, [place] tablet 10 00 :29 First dose Medi lizzy mg on [place]ie Branch 08/27/19 at 0900, Until Discontinu ed, Routine NaCl 0.9% 2020-0 2020- No IV Univers (NS) IV 08-26 Infusion, ity of infusion 17:15: 17:14 at 75 [place] 00 :00 mL/hr, Medical CONTINUOUS Branch , Starting Sat08/26/19 at 1115, Until Francie 08/27/19 at 1114, Routine atorvastati 2020-0 Yes 80mg 80 mg, Univ ers n (LIPITOR) 2-12 Oral, QHS, it y of tablet 80 03:00: First dose [place] mg 00 on [facility] 08/25/19 at Branch 2100, Until Discontinu ed, Routine furosemide 2020-0 2020- No 40mg 40 mg, Univ ers (LASIX) 08-25 Oral, ity of tablet 40 23:00: 16:15 QAM+PM, [place] mg 00 :13 First dose Medical on [facility] 08/25/19 at 1700, Until Discontinu ed, Routine magnesium 2020-0 2020- No 296mL 296 mL, Uni vers citrate 08-25 Oral, ity of solution 23:00: 23:22 ONCE, 1 [place] 296 mL 00 :00 dose, [facility] 08/25/19 at Branch 1700, Routine D5W 0.45% 2019-0 2020- No 1000mL at 100 Uni vers NaCl 08-25 mL/hr, ity of (1/2NS) IV 19:00: 16:15 1,000 mL, [place] infusion 00 :13 IV Medical 1,000 mL Infusion, Branch CONTINUOUS , Starting Sat08/25/19 at 1300, Until [facility] 08/26/19 at 1015, Routine peg-electro 2020-0 2020- No 4000mL 4,000 mL, Univers lyte soln 08-24 Oral, ity of (GOLYTELY) 23:00: 04:06 ONCE, 1 You as 236-22.74-6 00 :00 dose, Mon Med ical .74 -5.86 08/24/19 at [facility] gram 1700, solution Routine 4,000 mL furosemide 2020-0 2020- No 20mg 20 mg, IV U nivers (LASIX) 08-23-09 Push, ity of injection 17:00: 18:04 ONCE, 1 [place] 20 mg 00 :00 dose, [facility] 08/23/19 at Branch 1100, Routine metoprolol 2020-0 2020- No 50mg 50 mg, [facility] ers tartrate 08-22 Oral, BID, ity of (LOPRESSOR) 02:00: 13:17 First dose [place] tablet 50 00 :43 on [facility] Medical mg 2/7/20 at Branch 2000, Until Discontinu ed, Routine furosemide 2019- No 40mg 40 mg, [facility] ers (LASIX) 08-22 Slow IV ity of injection 02:00: 15:59 Push, [place] 40 mg 00 :07 Q12H, Medical First dose Branch on 08/21/19 at 2000, Until Discontinu ed, Routine NaCl 0.9% 2019- No 1000mL at 50 [facility] ers (NS) IV 08-22 mL/hr, IV ity of infusion 01:30: 13:29 Infusion, You as 1,000 mL 00 :00 CONTINUOUS Medic al , Starting Branch 08/21/19 at 1930, Until 08/22/19 at 0729, Routine lidocaine 2019- 2020- No Infiltrati U nivers 1% (PF) 08-22 on, ity of (XYLOCAINE) 00:25: 00:25 TITRATE - [place] injection 30 :30 FOR Medical PROCEDURE Branch USE, 1 dose, Starting 08/21/19 at 1825, Until 08/21/19 at 1825, Routine lidocaine 2019- 2020- No Infiltrati U nivers 1% (PF) 08-22 on, ity of (XYLOCAINE) 00:11: 00:11 TITRATE - [place] injection 01 :01 FOR Medical PROCEDURE Branch USE, 1 dose, Starting 08/21/19 at 1811, Until 08/21/19 at 1811, Routine FENTanyl PF 2019- No Slow IV Un michael (SUBLIMAZE 08-22 Push, ity of (PF)) 00:08: 00:08 TITRATE - [place] injection 29 :29 FOR Medical PROCEDURE Branch USE, 1 dose, Starting 08/21/19 at 1808, Until 08/21/19 at 1808, Routine midazolam 2019-0 2020- No IV Push, Uni vers (VERSED) 08-22 TITRATE - ity o f injection 00:08: 00:08 FOR [place] 23 :23 PROCEDURE Medical USE, 1 Branch dose, Starting 08/21/19 at 1808, Until 08/21/19 at 1808, Routine atorvastati 2019- No 40mg 40 mg, Uni vers n (LIPITOR) 08-21 Oral, QPM, i ty of tablet 40 23:00: 15:59 First dose [place] mg 00 :09 on Sat Medical 08/21/19 at Branch 1700, Until Discontinu ed, Routine pantoprazol 2020-0 Yes 40mg 40 mg, Univ ers e 207 Oral, ity of (PROTONIX) 15:00: DAILY, [place] [...] 08/21/19 at 0900, Until Discontinu ed, Routine
meat service team member approving Restricted medication : LUISATEMOIA heparin 2020-0 2020- No 5000U 5,000 Univers (porcine) 08-21 [...] at 2215, Until Discontinu ed, Routine Sliding 2020-0 2020- No Subcutaneo Uni vers Scale 08-2122 us, Q4H, ity of Insulin - 03:15: 14:43 First dose [place] Aspart 00 :46 on [facility] (NOVOLOG) + 08/20/19 at [facility] Fsbg 2115, Testing Until Discontinu ed, Routine metoprolol 2020-0 2020- No 25mg 25 mg, Univ ers tartrate 2-07 02-07 Oral, Q6H, ity of (LOPRESSOR) 03:15: 15:29 First dose [place] tablet 25 00 :06 on [facility] mg 08/20/19 at Branch 2115, Until Discontinu ed, Routine ALPRAZolam 2020-0 Yes .5mg 0.5 mg, [facility] ers (XANAX) 08-21 Oral, ity of tablet [...] IV Push, ity of mg 03:06: Q2HPRN, [place] 08 Starting Medical [facility] 08/20/19 Branch at 2106, Until Discontinu ed, Routine, Chest pain glucagon 2020-0 Yes 1mg 1 mg, Univers (GLUCAGEN 08-21 [...] mL [facility] 08/20/19 Branch at 2104, Until Tu09/01/19 at 1340, KATHY, Blood Glucose < or = 70 mg/dL and patient is unable to swallow or has mental status changes. ondansetron 2019-0 2020- No 4mg 4 mg, Slow Univers (ZOFRAN 08-21 IV Push, ity of (PF)) 01:20: 01:23 ONCE, 1 [place] injection 4 00 :00 dose, [facility] Med ical mg 08/20/19 at Branch 1930, Routine ondansetron 2019- 2020- No 4mg 4 mg, Slow Univers (ZOFRAN 08-20 IV Push, ity of (PF)) 22:00: 19:29 Q6HPRN, [place] injection 4 19 :34 Starting Medi lizzy mg [facility] 08/20/19 Branch at 1600, Until Sat09/01/19 at 1329, Routine, Nausea and Vomiting (N/V) ALPRAZolam 2019- 2020- No .5mg 0.5 mg, Uni vers (XANAX) 08-20 Oral, ity of tablet 0.5 07:00: 06:45 ONCE, 1 You as mg 00 :00 dose, [facility] 08/20/19 at Branch 0100, Routine atorvastati 2019- 2020- No 40mg 40 mg, Uni vers n (LIPITOR) 08-20 Oral, QHS, i ty of tablet 40 03:00: 03:12 First dose [place] mg 00 :55 on [facility] 08/19/19 at Branch 2100, Until Discontinu ed, Routine KCL 2020-0 2020- No 40meq 40 mEq, Univers (KLOR-CON 08-20 Oral, BID, ity of M20) tablet 02:00: 15:08 First dose [place] 40 mEq 00 :22 on [facility] 08/19/19 at Branch 2000, Until Discontinu ed, Routine KCL 2020-0 2020- No 40meq 40 mEq, Univers (KLOR-CON 08-19 Oral, ONCE ity of M20) tablet 15:30: 15:02 NOW, 1 You as 40 mEq 00 :00 dose, [facility] 08/19/19 at Branch 0930, Routine clopidogreL 2020-0 2020- No 75mg 75 mg, Uni vers (PLAVIX) 08-19 Oral, ity of tablet 75 15:00: 03:12 DAILY, [place] mg 00 :55 First dose Medical on [facility] 08/19/19 at 0900, Until Discontinu ed, Routine aspirin 2019-0 2020- No 81mg 81 mg, Univers chewable 08-19 Oral, ity of tablet 81 15:00: 03:12 DAILY, [place] mg 00 :55 First dose Medical on Sat Branch 08/19/19 at 0900, Until Discontinu ed, Routine enoxaparin 2020-0 2020- No 40mg 40 mg, [facility] ers (LOVENOX) 08-19- Subcutaneo ity of injection 15:00: 04:24 us, DAILY, [place] 40 mg 00 :57 First dose Medical on Sat08/19/19 at 0900, Until Discontinu ed, Routine ipratropium 2020-0 2020- No 3mL 3 mL, [facility] ers -albuterol 08-19 Inhalation it y of (DUONEB) 14:00: 14:43 , QID, [place] 0.5 mg-3 00 :46 First dose Medic al mg(2.5 mg on Sat base)/3 mL 08/19/19 at nebulizer 0800, solution 3 Until mL Discontinu ed, Routine insulin 2020-0 Yes 12U 12 Units, [place] [facility] rs regular - Subcutaneo ity of human 13:30: us, BIDAC, [place] (HUMULIN R) 00 First dose Me dical injection on Sat Branch 12 Units 08/19/19 at 0730, Until Discontinu ed, Routine ipratropium 2019-0 2020- No 3mL 3 mL, [facility] ers -albuterol 08-19 Inhalation it y of (DUONEB) 10:30: 09:31 , ONCE, 1 You as 0.5 mg-3 00 :00 dose, Sat Medica l mg(2.5 mg 08/19/19 at Bran h base)/3 mL 0430, nebulizer Routine solution 3 mL insulin 2020-0 2020- No 7U 7 Units, [place] [facility] rs regular -11 13- Subcutaneo ity o f human 05:30: 05:28 us, ONCE, [place] (HUMULIN R) 00 :00 1 dose, Medic al injection 7 Sat08/18/19 Br anch Units at 2330, Routine furosemide 2020-0 2020- No 40mg 40 mg, [facility] ers (LASIX) 08-19- Slow IV ity of injection 04:00: 15:29 Push, Q8H, [place] 40 mg 00 :06 First dose Medical on Sat Branch 08/18/19 at 2200, Until Discontinu ed, Routine spironolact 2019- 2020- No 50mg 50 mg, Uni vers one 08-19 Oral, BID, ity of (ALDACTONE) 04:00: 03:12 First dose [place] tablet 50 00 :55 on [facility] Medical mg 08/18/19 at Branch 2200, Until Discontinu ed, Routine Sliding 2020- No Subcutaneo Uni vers Scale 08-19 us, AC+HS, ity of Insulin-Reg 03:00: 03:12 First dose [place] ular + Fsbg 00 :55 on [facility] Medica l Testing 08/18/19 at Branch 2100, Until Discontinu ed, Routine insulin 2019-2019- No 20U 20 Units, [facility] ers glargine 08-19 Subcutaneo ity of (LANTUS 02:00: 14:43 us, BID, [place] U-100) 00 :46 First dose Medical injection on [facility] Branch 20 Units 08/18/19 at 2000, Until Discontinu ed metoprolol 2019- No 50mg 50 mg, [facility] ers succinate 08-19 Oral, BID, ity of XL (TOPROL 02:00: 03:12 First dose [place] XL) tablet 00 :55 on [facility] Medical 50 mg 08/18/19 at Branch 2000, Until Discontinu ed nicotine 2019-0 2020- No 1{patch 1 Patch, U nivers (NICODERM) 08-19 } Topical, ity of 21 mg/24 hr 00:45: 03:12 Administer [place] patch 1 00 :55 over 24 Medical Patch Hours, Branch Q24H, First dose on 08/18/19 at 1845, Until Discontinu ed, Routine furosemide 2020- No 40mg 40 mg, IV U nivers (LASIX) 08-18 02 Push, ity of injection 23:30: 22:38 ONCE, 1 [place] 40 mg 00 :00 dose, [facility] Medical 08/18/19 at Branch 1730, KATHY acetaminoph 2019-0 Yes 650mg 650 mg, Un michael en 204 Oral, ity of (TYLENOL) 22:56: Q6HPRN, [place] tablet 650 29 Starting Medic al mg [facility] 08/18/19 Branch at 1656, Until Discontinu ed, Routine, Pain (scale 1-3) acetaminoph 2018-07 2020- No [id number] 1{tbl} Take 1 Univers en-codeine 0-09 02-04 tablet by ity of (TYLENOL-CO 00:00: 00:00 [place] DEINE #3) 00 :00 every 4 Medical 300-30 mg (four) Branch tablet hours as needed for Pain (scale 4-6) or Pain (scale 7-10). ferrous Yes [id number] 325mg Take 1 Un michael sulfate 8-31 tablet by ity of (FERROUSUL) 00:00: mouth 3 You as 325 mg (65 00 (three) Medica l mg iron) times Branch tablet daily with meals. ferrous Yes [id number] 325mg Take 1 Un michael sulfate 8-31 tablet by ity of (FERROUSUL) 00:00: mouth 3 You as 325 mg (65 00 (three) Medica l mg iron) times Branch tablet daily with meals. ferrous Yes [id number] 325mg Take 1 Un michael sulfate 8-31 tablet by ity of (FERROUSUL) 00:00: mouth 3 You as 325 mg (65 00 (three) Medica l mg iron) times Branch tablet daily with meals. ferrous Yes [id number] 325mg Take 1 Un michael sulfate 8-31 tablet by ity of (FERROUSUL) 00:00: mouth 3 You as 325 mg (65 00 (three) Medica l mg iron) times Branch tablet daily with meals. ferrous Yes [id number] 325mg Take 1 Un michael sulfate 8-31 tablet by ity of (FERROUSUL) 00:00: mouth 3 You as 325 mg (65 00 (three) Medica l mg iron) times Branch tablet daily with meals. ferrous 0 Yes [id number] 325mg Take 1 Un michael sulfate 8-31 tablet by ity of (FERROUSUL) 00:00: mouth 3 You as 325 mg (65 00 (three) Medica l mg iron) times Branch tablet daily with meals. ferrous Yes [id number] 325mg Take 1 Un michael sulfate 8-31 tablet by ity of (FERROUSUL) 00:00: mouth 3 You as 325 mg (65 00 (three) Medica l mg iron) times Branch tablet daily with meals. ferrous 2018-0 Yes [id number] 325mg Take 1 Un michael sulfate 8-31 tablet by ity of (FERROUSUL) 00:00: mouth 3 You as 325 mg (65 00 (three) Medica l mg iron) times Branch tablet daily with meals. ferrous 2018-0 Yes [id number] 325mg Take 1 Un michael sulfate 8-31 tablet by ity of (FERROUSUL) 00:00: mouth 3 You as 325 mg (65 00 (three) Medica l mg iron) times Branch tablet daily with meals. ferrous 2018-0 Yes [id number] 325mg Take 1 Un michael sulfate 8-31 tablet by ity of (FERROUSUL) 00:00: mouth 3 You as 325 mg (65 00 (three) Medica l mg iron) times Branch tablet daily with meals. ferrous 2018- Yes [id number] 325mg Take 1 Un michael sulfate 8-31 tablet by ity of (FERROUSUL) 00:00: mouth 3 You as 325 mg (65 00 (three) Medica l mg iron) times Branch tablet daily with meals. ferrous 2017- 2020- No [id number] 325mg Take 1 U nivers sulfate 8-31 [...] of tablet 00:00: mouth [place] 00 daily. [facility] Branch aspirin 81 2018-0 Yes 81mg Take 1 Unive rs mg chewable 4-06 tablet by ity of tablet 00:00: mouth [place] 00 daily. [facility] Branch aspirin 81 2018-0 Yes 81mg Take [...] Units ity of human 00:00: under the [place] (HUMULIN R 00 skin 2 Medical U-100) [...] Units ity of human 00:00: under the [place] (HUMULIN R 00 skin 2 Medical U-100) [...] Units ity of human 00:00: under the [place] (HUMULIN R 00 skin 2 Medical U-100) 100 (two) Branch unit/mL times injection daily before breakfast and dinner. insulin 2018-0 Yes 12U inject 12 Unive rs regular 3-14 Units ity of human 00:00: under the [place] (HUMULIN R 00 skin 2 Medical U-100) 100 (two) Branch unit/mL times injection daily before breakfast and dinner. insulin 2018-0 Yes 12U inject 12 Unive rs regular 3-14 Units ity of human 00:00: under the [place] (HUMULIN R 00 skin 2 Medical U-100) 100 (two) Branch unit/mL times injection daily before breakfast and dinner. insulin 2018-0 Yes 12U inject 12 Unive rs regular 3-14 Units ity of human 00:00: under the [place] (HUMULIN R 00 skin 2 Medical U-100) 100 (two) Branch unit/mL times injection daily before breakfast and dinner. insulin 2018-0 Yes 12U inject 12 Unive rs regular 3-14 Units ity of human 00:00: under the [place] (HUMULIN R 00 skin 2 Medical U-100) [...] ity of human 00:00: 00:00 under the [place] (HUMULIN R 00 :00 skin 2 Medical U-100) 100 (two) Branch unit/mL times injection daily before breakfast and dinner. insulin 2019- No Check Univers regular 3-12 02-23 Blood ity of human Soln 00:00: 00:00 [...] Immunizations Ordered Filled Immunization Date Status Comments [facility] e Immunization Name Name TDAP (ADACEL) 2019-09-18 Completed University of VACCINE 00:00:00 [facility] Branch TDAP (ADACEL) 2019-09-18 Completed University of VACCINE 00:00:00 [facility] Branch TDAP (ADACEL) 2019-09-18 Completed University of VACCINE 00:00:00 [facility] Branch TDAP (ADACEL) 2019-09-18 Completed University of VACCINE 00:00:00 [facility] Branch TDAP (ADACEL) 2019-09-18 Completed University of VACCINE 00:00:00 [facility] Branch TDAP (ADACEL) 2019-09-18 Completed University of VACCINE 00:00:00 [facility] Branch TDAP (ADACEL) 2019-09-18 Completed University of VACCINE 00:00:00 [facility] Branch TDAP (ADACEL) 2019-09-18 Completed University of VACCINE 00:00:00 [facility] Branch TDAP (ADACEL) 2019-09-18 Completed University of VACCINE 00:00:00 [facility] Branch TDAP (ADACEL) 2019-09-18 Completed University of VACCINE 00:00:00 [facility] Branch TDAP (ADACEL) 2019-09-18 Completed University of VACCINE 00:00:00 [facility] Branch TDAP (ADACEL) 2019-09-18 Completed University of VACCINE 00:00:00 [facility] Branch TDAP (ADACEL) 2019-09-18 Completed University of VACCINE 00:00:00 [facility] Branch TDAP (ADACEL) 2019-09-18 Completed University of VACCINE 00:00:00 [place] [facility] TDAP (ADACEL) 2019-09-18 Completed University of VACCINE 00:00:00 [place] [facility] TDAP (ADACEL) 2019-09-18 Completed University of VACCINE 00:00:00 [place] [facility] TDAP (ADACEL) 2019-09-18 Completed University of VACCINE 00:00:00 [place] [facility] TDAP (ADACEL) 2019-09-18 Completed University of VACCINE 00:00:00 [place] [facility] TDAP (ADACEL) 2019-09-18 Completed University of VACCINE 00:00:00 [place] [facility] TDAP (ADACEL) 2019-09-18 Completed University of VACCINE 00:00:00 [facility] Branch TDAP (ADACEL) 2019-09-18 Completed University of VACCINE 00:00:00 [facility] Branch TDAP (ADACEL) 2019-09-18 Completed University of VACCINE 00:00:00 [facility] Branch TDAP (ADACEL) 2019-09-18 Completed University of VACCINE 00:00:00 [facility] Branch TDAP (ADACEL) 2019-09-18 Completed University of VACCINE 00:00:00 [facility] Branch TDAP (ADACEL) 2019-09-18 Completed University of VACCINE 00:00:00 [facility] Branch TDAP (ADACEL) 2019-09-18 Completed University of VACCINE 00:00:00 [facility] Branch TDAP (ADACEL) 2019-09-18 Completed University of VACCINE 00:00:00 [facility] Branch TDAP (ADACEL) 2019-09-18 Completed University of VACCINE 00:00:00 [facility] Branch TDAP (ADACEL) 2019-09-18 Completed University of VACCINE 00:00:00 [facility] Branch TDAP (ADACEL) 2019-09-18 Completed University of VACCINE 00:00:00 [place] [facility] TDAP (ADACEL) 2019-09-18 Completed University of VACCINE 00:00:00 [place] [facility] TDAP (ADACEL) 2019-09-18 Completed University of VACCINE 00:00:00 [place] [facility] TDAP (ADACEL) 2019-09-18 Completed University of VACCINE 00:00:00 [place] [facility] TDAP (ADACEL) 2019-09-18 Completed University of VACCINE 00:00:00 [place] [facility] TDAP (ADACEL) 2019-09-18 Completed University of VACCINE 00:00:00 [place] [facility] TDAP (ADACEL) 2019-09-18 Completed University of VACCINE 00:00:00 [place] [facility] TDAP (ADACEL) 2019-09-18 Completed University of VACCINE 00:00:00 [place] [facility] TDAP (ADACEL) 2019-09-18 Completed University of VACCINE 00:00:00 [place] [facility] TDAP (ADACEL) 2019-09-18 Completed University of VACCINE 00:00:00 [place] [facility] TDAP (ADACEL) 2019-09-18 Completed University of VACCINE 00:00:00 [place] [facility] TDAP (ADACEL) 2019-09-18 Completed University of VACCINE 00:00:00 [place] [facility] TDAP (ADACEL) 2019-09-18 Completed University of VACCINE 00:00:00 [facility] Branch TDAP (ADACEL) 2019-09-18 Completed University of VACCINE 00:00:00 [facility] Branch TDAP (ADACEL) 2019-09-18 Completed University of VACCINE 00:00:00 [facility] Branch TDAP (ADACEL) 2019-09-18 Completed University of VACCINE 00:00:00 [facility] Branch TDAP (ADACEL) 2019-09-18 Completed University of VACCINE 00:00:00 [facility] Branch TDAP (ADACEL) 2019-09-18 Completed University of VACCINE 00:00:00 [place] [facility] TDAP (ADACEL) 2019-09-18 Completed University of VACCINE 00:00:00 [facility] Branch TDAP (ADACEL) 2019-09-18 Completed University of VACCINE 00:00:00 [facility] Branch TDAP (ADACEL) 2019-09-18 Completed University of VACCINE 00:00:00 [facility] Branch TDAP (ADACEL) 2019-09-18 Completed University of VACCINE 00:00:00 [place] [facility] TDAP (ADACEL) 2019-09-18 Completed University of VACCINE 00:00:00 [place] [facility] TDAP (ADACEL) 2019-09-18 Completed University of VACCINE 00:00:00 [place] [facility] TDAP (ADACEL) 2019-09-18 Completed University of VACCINE 00:00:00 [place] [facility] TDAP (ADACEL) 2019-09-18 Completed University of VACCINE 00:00:00 [place] [facility] TDAP (ADACEL) 2019-09-18 Completed University of VACCINE 00:00:00 [place] [facility] TDAP (ADACEL) 2019-09-18 Completed University of VACCINE 00:00:00 [facility] Branch TDAP (ADACEL) 2019-09-18 Completed University of VACCINE 00:00:00 [facility] TDAP (ADACEL) 2019-09-18 Completed University of VACCINE 00:00:00 [facility] Pneumococcal 2017-09-23 Completed University o f Polysaccharide, [...] 00:00:00 [place] Med ical PPSV23 (PNEUMOVAX) Branch Vital Signs Vital Name Observation Time Observation Value Comments Source Systolic blood 2020-11-09 144 mm[Hg] [place] of pressure 13:12:00 [facility] Diastolic blood 2020-11-09 58 mm[Hg] [place] o f pressure 13:12:00 [facility] Heart rate 2020-11-09 61 /min University of 13:12: [place] [facility] Respiratory rate 2020-11-09 18 /min University of :12: [place] [facility] Oxygen saturation 2020-11-09 100 /min University of in Arterial blood 13:12: [place] Medi lizzy by Pulse oximetry Branch Body temperature 2020-11-09 36.89 [place] University of 09:00:00 [place] [facility] Body height 2020-11-07 190.5 cm University of 19:10: [place] [facility] Body weight 2020-11-07 72.576 kg University of 19:10: [place] [facility] BMI 2020-11-07 20.00 kg/m2 University of 19:10: [facility] Branch Systolic blood 2020-05-03 157 mm[Hg] University of pressure 21:02:00 [place] [facility] Diastolic blood 2020-05-03 82 mm[Hg] University o f pressure 21:02:00 [place] [facility] Heart rate 2020-05-03 59 /min University of 21:02: [place] [facility] Respiratory rate 2020-05-03 18 /min University of 21:02:00 [place] [facility] Oxygen saturation 2020-05-03 100 /min University of in Arterial blood 21:02:00 [place] Medi lizzy by Pulse oximetry Branch Body temperature 2020-05-03 37 [place] University of 18:42:00 [place] [facility] Body height 2020-05-03 182.9 cm University of 18:42:00 [place] [facility] [place] Body weight 2020-05-03 72.576 kg University of 18:42:00 [facility] BMI 2020-05-03 21.70 kg/m2 University of 18:42:00 [facility] Branch Systolic blood 2019-10-28 152 mm[Hg] University of pressure 12:52:00 [place] [facility] Diastolic blood 2019-10-28 77 mm[Hg] University o f pressure 12:52:00 [place] [facility] Heart rate 2019-10-28 69 /min University of 12:52:00 [place] [facility] Body temperature 2019-10-28 36.78 [place] University of 12:52:00 [place] [facility] Respiratory rate 2019-10-28 20 /min University of 12:52:00 [facility] Branch Oxygen saturation 2019-10-28 97 /min University of in Arterial blood 12:52:00 [place] Medi lizzy by Pulse oximetry Branch Body height 2019-10-27 182.9 cm University of 06:06:00 [facility] Body weight 2019-10-27 74.98 kg University of 06:06:00 [facility] BMI 2019-10-27 22.42 kg/m2 University of 06:06:00 [facility] Systolic blood 2019-10-12 147 mm[Hg] University of pressure 18:07:00 [facility] Diastolic blood 2019-10-12 73 mm[Hg] University o f pressure 18:07:00 [facility] Heart rate 2019-10-12 80 /min University of 18:07:00 [facility] Body temperature 2019-10-12 35.22 [place] University of 18:07:00 [facility] Respiratory rate 2019-10-12 16 /min University of 18:07:00 [facility] Body weight 2019-10-12 75.751 kg University of 18:07:00 [facility] BMI 2019-10-12 22.65 kg/m2 University of 18:07:00 [facility] Oxygen saturation 2019-10-12 98 /min University of in Arterial blood 18:07:00 [facility] by Pulse oximetry Branch Systolic blood 2019-10-01 136 mm[Hg] University of pressure 21:37:00 [facility] Diastolic blood 2019-10-01 59 mm[Hg] University o f pressure 21:37:00 [facility] Heart rate 2019-10-01 78 /min University of 21:37:00 [facility] Body temperature 2019-10-01 36.83 [place] University of 21:37:00 [facility] Respiratory rate 2019-10-01 18 /min University of 21:37:00 [facility] Oxygen saturation 2019-10-01 91 /min [facility] in Arterial blood 21:37:00 [facility] by Pulse oximetry Branch Body height 2019-09-30 182.9 cm University of 00:30:00 [facility] Body weight 2019-09-30 77.8 kg University of 00:30:00 [facility] BMI 2019-09-30 23.26 kg/m2 University of 00:30:00 [facility] Systolic blood 2019-09-28 142 mm[Hg] University of pressure 17:50:00 [facility] Diastolic blood 2019-09-28 68 mm[Hg] University o f pressure 17:50:00 [facility] Heart rate 2019-09-28 77 /min University of 17:50:00 [facility] Body temperature 2019-09-28 36.89 [place] University of 17:50:00 [facility] Respiratory rate 2019-09-28 16 /min University of 17:50:00 [facility] Body weight 2019-09-28 72.213 kg University of 17:50:00 [facility] BMI 2019-09-28 21.59 kg/m2 University of 17:50:00 [facility] Oxygen saturation 2019-09-28 99 /min University of in Arterial blood 17:50:00 [place] Medi lizzy by Pulse oximetry Branch Systolic blood 2019-09-21 132 mm[Hg] University of pressure 18:11:00 [facility] [facility] Diastolic blood 2019-09-21 70 mm[Hg] University o f pressure 18:11:00 [facility] Heart rate 2019-09-21 79 /min University of 18:11:00 [facility] Body temperature 2019-09-21 36.33 Bernadine University of 18:11:00 [facility] Respiratory rate 2019-09-21 16 /min University of 18:11:00 [facility] Body weight 2019-09-21 71.668 kg University of 18:11:00 [facility] BMI 2019-09-21 21.43 kg/m2 University of 18:11:00 [facility] Oxygen saturation 2019-09-21 97 /min University of in Arterial blood 18:11:00 [facility] lizzy by Pulse oximetry Branch Systolic blood 2019-09-19 162 mm[Hg] University of pressure 02:30:00 [facility] Diastolic blood 2019-09-19 76 mm[Hg] University o f pressure 02:30:00 [facility] Heart rate 2019-09-19 81 /min University of 02:30:00 [facility] Respiratory rate 2019-09-19 19 /min University of 02:30:00 [facility] Oxygen saturation 2019-09-19 96 /min University of in Arterial blood 02:30:00 [facility] lizzy by Pulse oximetry Branch Body temperature 2019-09-19 37.28 Bernadine University of 00:05:00 [facility] Body height 2019-09-19 182.9 cm University of 00:05:00 [facility] Body weight 2019-09-19 73.483 kg University of 00:05:00 [facility] BMI 2019-09-19 21.97 kg/m2 University of 00:05:00 [facility] Systolic blood 2019-09-15 128 mm[Hg] University of pressure 18:00:00 [facility] Diastolic blood 2019-09-15 66 mm[Hg] University o f pressure 18:00:00 [facility] Heart rate 2019-09-15 77 /min University of 18:00:00 [facility] Body temperature 2019-09-15 36.94 Bernadine University of 18:00:00 [facility] Respiratory rate 2019-09-15 17 /min University of 18:00:00 [facility] Oxygen saturation 2019-09-15 99 /min University of in Arterial blood 18:00:00 [place] [facility] by Pulse oximetry [facility] Body weight 2019-09-12 80 kg University of 15:21:00 [facility] BMI 2019-09-12 23.92 kg/m2 University of 15:21:00 [facility] Systolic blood 2019-09-07 135 mm[Hg] University of pressure 18:00:00 [facility] Diastolic blood 2019-09-07 75 mm[Hg] University o f pressure 18:00:00 [facility] Heart rate 2019-09-07 70 /min University of 18:00:00 [facility] Respiratory rate 2019-09-07 23 /min University of 18:00:00 [facility] Oxygen saturation 2019-09-07 95 /min University of in Arterial blood 18:00:00 [facility] lizzy by Pulse oximetry Branch Body temperature 2019-09-07 36.83 Bernadine University of 14:00:00 [facility] Body height 2019-09-04 182.9 cm University of 06:00:00 [facility] Body weight 2019-09-04 73.2 kg University of 06:00:00 [facility] BMI 2019-09-04 21.89 kg/m2 University of 06:00:00 [facility] Systolic blood 2020-11-09 144 mm[Hg] University of pressure 13:12:00 [facility] Diastolic blood 2020-11-09 58 mm[Hg] University o f pressure 13:12:00 [facility] Heart rate 2020-11-09 61 /min University of 13:12:00 [facility] Respiratory rate 2020-11-09 18 /min University of 13:12:00 [facility] Oxygen saturation 2020-11-09 100 /min University of in Arterial blood 13:12:00 [place] [facility] by Pulse oximetry Branch Body temperature 2020-11-09 36.89 Bernadine University of 09:00:00 [facility] Body height 2020-11-07 190.5 cm University of 19:10:00 [facility] Body weight 2020-11-07 72.576 kg University of 19:10:00 [facility] BMI 2020-11-07 20.00 kg/m2 University of 19:10:00 [facility] Heart rate 2020-11-06 69 /min University 16:48:00 [facility] Respiratory rate 2020-11-06 18 /min University 16:48:00 [facility] Oxygen saturation 2020-11-06 99 /min [facility] in Arterial blood 16:48:00 [facility] by Pulse oximetry [place] Systolic blood 2020-11-06 122 mm[Hg] [facility] pressure 16:38:00 [facility] Diastolic blood 2020-11-06 57 mm[Hg] University o f pressure 16:38:00 [facility] Body temperature 2020-11-06 37.17 Bernadine [facility] 16:38:00 [facility] Body weight 2020-11-03 73 kg [place] of :00:00 [facility] BMI 2020-11-03 20.12 kg/m2 [place] of 01:00:00 [facility] Body height 2020-10-22 190.5 cm [facility] 16:30:00 [facility] Systolic blood 2019-09-29 155 mm[Hg] Location: [facility]; [facility] 16:23:00 Position: [place] [facility] Sitting Diastolic blood 2019-09-29 68 mm[Hg] Location: [facility] 16:23:00 Position: [place] [facility] Body height 2019-09-29 72 [in_us] University of 16:23:00 [place] [facility] Weight 2019-09-29 163 [lb_av] University of 16:23:00 [place] [facility] Body mass index 2019-09-29 22.11 kg/m2 University o f (BMI) [Ratio] 16:23:00 [place] [facility] Body temperature 2019-09-29 97.9 [degF] Method: Oral University 16:23:00 [place] [facility] Heart Rate 2019-09-29 75 /min [facility] 16:23:00 [place] [facility] Procedures Procedure Date / Time Performing Source Performed Clinician DME/SUPPLY JUSTIFICATION 2020-12-16 Doctor Univers ity of 05:01:00 Unassigned, No [facility] DNR 2020-11-16 [facility] University of 05:01:00 Unassigned, No [facility] POCT GLUCOSE (AUTOMATED) 2020-11-09 David Howell sity of 16:50:00 J [facility] POCT GLUCOSE (AUTOMATED) 2020-11-09 David Howell sity of 16:50:00 [facility] CBC WITHOUT DIFF 2020-11-09 [facility] of 10:56:00 [facility] BASIC METABOLIC PANEL (NA, K, CL, 2020-11-09 [facility] of CO2, GLUCOSE, BUN, CREATININE, CA) 10:56:00 [facility] MAGNESIUM 2020-11-09 [facility] of 10:56:00 [facility] MAGNESIUM 2020-11-09 [facility] of 10:56:00 [facility] BASIC METABOLIC PANEL (NA, K, CL, 2020-11-09 [facility] of CO2, GLUCOSE, BUN, CREATININE, CA) 10:56:00 [facility] CBC WITHOUT DIFF 2020-11-09 [facility] of 10:56:00 [facility] POCT GLUCOSE (AUTOMATED) 2020-11-09 David Howell sity of 10:55:00 J [facility] POCT GLUCOSE (AUTOMATED) 2020-11-09 David Howell sity of 10:55:00 J [facility] POCT GLUCOSE (AUTOMATED) 2020-11-09 David Howell sity of 05:23:00 J [facility] POCT GLUCOSE (AUTOMATED) 2020-11-09 David Howell sity of 05:23:00 J [facility] POCT GLUCOSE (AUTOMATED) 2020-11-08 David Howell sity of 23:22:00 J [facility] POCT GLUCOSE (AUTOMATED) 2020-11-08 David Howell sity of 23:22:00 J [facility] POCT GLUCOSE (AUTOMATED) 2020-11-08 David Howell sity of 15:47:00 J [facility] POCT GLUCOSE (AUTOMATED) 2020-11-08 David Howell sity of 15:47:00 J [facility] POCT GLUCOSE (AUTOMATED) 2020-11-08 David Howell Univer sity of 11:15:00 J [facility] POCT GLUCOSE (AUTOMATED) 2020-11-08 David Howell sity of 11:15:00 J [facility] CBC WITH DIFF 2020-11-08 [facility] of 09:53:00 [facility] BASIC METABOLIC PANEL (NA, K, CL, 2020-11-08 [facility] of CO2, GLUCOSE, BUN, CREATININE, CA) 09:53:00 [facility] BASIC METABOLIC PANEL (NA, K, CL, 2020-11-08 [facility] of CO2, GLUCOSE, BUN, CREATININE, CA) 09:53:00 [facility] CBC WITH DIFF 2020-11-08 [facility] of 09:53:00 [facility] POCT GLUCOSE (AUTOMATED) 2020-11-08 David Howell Univer sity of 05:42:00 J [facility] POCT GLUCOSE (AUTOMATED) 2020-11-08 David Howell Univer sity of 05:42:00 J [facility] POCT GLUCOSE (AUTOMATED) 2020-11-07 David Howell Univer sity of 22:01:00 J [facility] POCT GLUCOSE (AUTOMATED) 2020-11-07 David Howell Univer sity of 22:01:00 J [facility] POCT GLUCOSE (AUTOMATED) 2020-11-07 David Howell Univer sity of 13:13:00 J [place] [facility] POCT GLUCOSE (AUTOMATED) 2020-11-07 David Howell Univer sity of 13:13:00 J [facility] POCT GLUCOSE (AUTOMATED) 2020-11-07 David Hwoell Univer sity of 10:26:00 J [facility] POCT GLUCOSE (AUTOMATED) 2020-11-07 David Howeller sity of 10:26:00 J [facility] CBC WITHOUT DIFF 2020-11-07 [facility] of 09:49:00 [facility] BASIC METABOLIC PANEL (NA, K, CL, 2020-11-07 [facility] of CO2, GLUCOSE, BUN, CREATININE, CA) 09:49:00 [facility] MAGNESIUM 2020-11-07 [facility] of 09:49:00 [facility] MAGNESIUM 2020-11-07 [facility] of 09:49:00 [facility] BASIC METABOLIC PANEL (NA, K, CL, 2020-11-07 [facility] of CO2, GLUCOSE, BUN, CREATININE, CA) 09:49:00 [facility] CBC WITHOUT DIFF 2020-11-07 [facility] of 09:49:00 [facility] POCT GLUCOSE (AUTOMATED) 2020-11-07 David Howell Univer sity of 05:13:00 [facility] POCT GLUCOSE (AUTOMATED) 2020-11-07 David Howell Univer sity of 05:13:00 [facility] POCT GLUCOSE (AUTOMATED) 2020-11-06 David Howell Univer sity of 22:48:00 J [facility] POCT GLUCOSE (AUTOMATED) 2020-11-06 David Howell Univer sity of 22:48:00 J [facility] POCT GLUCOSE (AUTOMATED) 2020-11-06 David Howell Univer sity of 16:49:00 J [facility] POCT GLUCOSE (AUTOMATED) 2020-11-06 David Howell Univer sity of 16:49:00 J [facility] POCT GLUCOSE (AUTOMATED) 2020-11-06 David Howell Univloi sity of 11:11:00 [facility] POCT GLUCOSE (AUTOMATED) 2020-11-06 David Howell Univer sity of 11:11:00 [facility] CBC WITHOUT DIFF 2020-11-06 [facility] of 10:42:00 [facility] BASIC METABOLIC PANEL (NA, K, CL, 2020-11-06 [facility] of CO2, GLUCOSE, BUN, CREATININE, CA) 10:42:00 [facility] MAGNESIUM 2020-11-06 [facility] of 10:42:00 [facility] MAGNESIUM 2020-11-06 [facility] of 10:42:00 [facility] BASIC METABOLIC PANEL (NA, K, CL, 2020-11-06 [facility] of CO2, GLUCOSE, BUN, CREATININE, CA) 10:42:00 [facility] CBC WITHOUT DIFF 2020-11-06 [facility] of 10:42:00 [facility] POCT GLUCOSE (AUTOMATED) 2020-11-06 David Howell sity of 05:07:00 J [facility] POCT GLUCOSE (AUTOMATED) 2020-11-06 David Howell sity of 05:07:00 J [facility] POCT GLUCOSE (AUTOMATED) 2020-11-05 David Howell sity of 18:40:00 J [facility] POCT GLUCOSE (AUTOMATED) 2020-11-05 David Howell sity of 18:40:00 [facility] URINE CULTURE 2020-11-05 [facility] of 14:56:00 [facility] URINE CULTURE 2020-11-05 [facility] of 14:56:00 [facility] BLOOD CULTURE SCREEN 2020-11-05 [facility] of 14:54:00 [facility] BLOOD CULTURE SCREEN 2020-11-05 [facility] of 14:54:00 [facility] BLOOD CULTURE SCREEN 2020-11-05 [facility] of 14:44:00 [facility] BLOOD CULTURE SCREEN 2020-11-05 [facility] of 14:44:00 [facility] XR CHEST 1 VW 2020-11-05 [facility] of 12:03:32 [facility] XR CHEST 1 VW 2020-11-05 [facility] of 12:03:32 [facility] POCT GLUCOSE (AUTOMATED) 2020-11-05 David Howell sity of 11:13:00 J [facility] POCT GLUCOSE (AUTOMATED) 2020-11-05 David Howell sity of 11:13:00 [facility] CBC WITHOUT DIFF 2020-11-05 [facility] of 09:31:00 [facility] BASIC METABOLIC PANEL (NA, K, CL, 2020-11-05 [facility] of CO2, GLUCOSE, BUN, CREATININE, CA) 09:31:00 [facility] MAGNESIUM 2020-11-05 [facility] of 09:31:00 [facility] MAGNESIUM 2020-11-05 [facility] of 09:31:00 [facility] BASIC METABOLIC PANEL (NA, K, CL, 2020-11-05 [facility] of CO2, GLUCOSE, BUN, CREATININE, CA) 09:31:00 [facility] CBC WITHOUT DIFF 2020-11-05 [facility] of 09:31:00 [facility] POCT GLUCOSE (AUTOMATED) 2020-11-05 David Howell sity of 04:54:00 J [facility] POCT GLUCOSE (AUTOMATED) 2020-11-05 David Howell sity of 04:54:00 J [facility] POCT GLUCOSE (AUTOMATED) 2020-11-04 David Howell sity of 22:58:00 J [facility] POCT GLUCOSE (AUTOMATED) 2020-11-04 David Howell sity of 22:58:00 J [facility] XR KUB 2020-11-04 [facility] of 21:35:45 [facility] XR KUB 2020-11-04 [facility] of 21:35:45 [facility] POCT GLUCOSE (AUTOMATED) 2020-11-04 David Howell sity of 16:51:00 J [facility] POCT GLUCOSE (AUTOMATED) 2020-11-04 David Howell sity of 16:51:00 J [facility] PROTHROMBIN TIME / INR 2020-11-04 [facility] y of 15:55:00 [facility] PROTHROMBIN TIME / INR 2020-11-04 [facility] y of 15:55:00 [facility] POCT GLUCOSE (AUTOMATED) 2020-11-04 David Howell sity of 15:21:00 J [facility] POCT GLUCOSE (AUTOMATED) 2020-11-04 David Howell sity of 15:21:00 J [facility] CBC WITHOUT DIFF 2020-11-04 [facility] of 10:04:00 [facility] BASIC METABOLIC PANEL (NA, K, CL, 2020-11-04 [facility] of CO2, GLUCOSE, BUN, CREATININE, CA) 10:04:00 [facility] MAGNESIUM 2020-11-04 [facility] of 10:04:00 [facility] MAGNESIUM 2020-11-04 [facility] of 10:04:00 [facility] BASIC METABOLIC PANEL (NA, K, CL, 2020-11-04 [facility] of CO2, GLUCOSE, BUN, CREATININE, CA) 10:04:00 [facility] CBC WITHOUT DIFF 2020-11-04 [facility] of 10:04:00 [facility] POCT GLUCOSE (AUTOMATED) 2020-11-03 Antonio Villa Univers ity of 16:54:00 [facility] POCT GLUCOSE (AUTOMATED) 2020-11-03 Antonio Villa Univers ity of 16:54:00 [facility] BASIC METABOLIC PANEL (NA, K, CL, 2020-11-03 Ele Cao [place] of CO2, GLUCOSE, BUN, CREATININE, CA) 12:53:00 [facility] MAGNESIUM 2020-11-03 Ele Cao of 12:53:00 [facility] MAGNESIUM 2020-11-03 Ele Cao [place] of 12:53:00 [facility] BASIC METABOLIC PANEL (NA, K, CL, 2020-11-03 Ele Cao [place] of CO2, GLUCOSE, BUN, CREATININE, CA) 12:53:00 [facility] POCT GLUCOSE (AUTOMATED) 2020-11-03 Antonio Villa Univers ity of 12:47:00 [facility] POCT GLUCOSE (AUTOMATED) 2020-11-03 Antonio Villa Univers ity of 12:47:00 [facility] THYROID PEROXIDASE (TPO) AB 2020-11-03 Ele Cao [facility] versity of 10:10:00 [facility] CBC WITH DIFF 2020-11-03 Ele Cao [place] of 10:10:00 [facility] CBC WITH DIFF 2020-11-03 Ele Cao [place] of 10:10:00 [facility] THYROID PEROXIDASE (TPO) AB 2020-11-03 Ele Cao [facility] versity of 10:10:00 [facility] POCT GLUCOSE (AUTOMATED) 2020-11-03 Antonio Villa Univers ity of 10:09:00 [facility] POCT GLUCOSE (AUTOMATED) 2020-11-03 Antonio Villa Univers ity of 10:09:00 [facility] POCT GLUCOSE (AUTOMATED) 2020-11-03 Antonio Villa P Univers ity of 04:38:00 [facility] POCT GLUCOSE (AUTOMATED) 2020-11-03 Antonio Villa Univers ity of 04:38:00 [facility] BASIC METABOLIC PANEL (NA, K, CL, 2020-11-03 Ele Cao [place] of CO2, GLUCOSE, BUN, CREATININE, CA) 02:22:00 [facility] MAGNESIUM 2020-11-03 Ele Cao [place] of 02:22:00 [facility] MAGNESIUM 2020-11-03 Ele Cao [place] of 02:22:00 [facility] BASIC METABOLIC PANEL (NA, K, CL, 2020-11-03 Ele Cao [place] of CO2, GLUCOSE, BUN, CREATININE, CA) 02:22:00 [facility] XR KUB 2020-11-02 Ele Cao [place] of 22:56:53 [facility] XR KUB 2020-11-02 [facility] 22:56[facility]53 [facility] VITAMIN B6, PLASMA 2020-11-02 [facility] of 22:49:00 [facility] VITAMIN B6, PLASMA 2020-11-02 [facility] of 22:49:00 [facility] POCT GLUCOSE (AUTOMATED) 2020-11-02 Antonio Villa Univers ity of 22:20:00 [facility] POCT GLUCOSE (AUTOMATED) 2020-11-02 Antonio Villa [facility] ity of 22:20:00 [facility] MENINGITIS/ENCEPHALITIS PANEL BY 2020-11-02 Ele Cao of PCR 20:45:00 [facility] CSF/PROPOSAL CONSULTANT SHUNT CULTURE 2020-11-02 Ele Cao of 20:45:00 [facility] BODY FLUID MANUAL DIFF 2020-11-02 Ele Caoit y of 20:45:00 [facility] CEREBROSPINAL FLUID GLUCOSE 2020-11-02 Kiley [facility] ersity of 20:45:00 [facility] CEREBROSPINAL FLUID PROTEIN 2020-11-02 Kiley, [facility] ersity of 20:45:00 [facility] CSF CULTURE 2020-11-02 Kiley [facility] of 20:45:00 [facility] CEREBROSPINAL FLUID PROTEIN 2020-11-02 Kiley, [facility] ersity of 20:45:00 [facility] CEREBROSPINAL FLUID GLUCOSE 2020-11-02 Kiley, [facility] ersity of 20:45:00 [facility] BODY FLUID DIRECT COUNT 2020-11-02 Kiley [facility] ty of 20:45:00 [facility] CSF/PROPOSAL CONSULTANT SHUNT CULTURE 2020-11-02 Kiley [facility] of 20:45:00 [facility] CSF CULTURE 2020-11-02 [facility] of 20:45:00 [facility] MENINGITIS/ENCEPHALITIS PANEL BY 2020-11-02 [facility] of PCR 20:45:00 [facility] BASIC METABOLIC PANEL (NA, K, CL, 2020-11-02 [facility] of CO2, GLUCOSE, BUN, CREATININE, CA) 17:39:00 [facility] MAGNESIUM 2020-11-02 [facility] of 17:39:00 [facility] MAGNESIUM 2020-11-02 [facility] of 17:39:00 [facility] BASIC METABOLIC PANEL (NA, K, CL, 2020-11-02 [facility] of CO2, GLUCOSE, BUN, CREATININE, CA) 17:39:00 [facility] POCT GLUCOSE (AUTOMATED) 2020-11-02 Antonio Villa [facility] ity of 16:28:00 [facility] POCT GLUCOSE (AUTOMATED) 2020-11-02 Antonio Villa P Univers ity of 16:28:00 [facility] POCT GLUCOSE (AUTOMATED) 2020-11-02 Antonio Villa Univers ity of 12:37:00 [facility] POCT GLUCOSE (AUTOMATED) 2020-11-02 Antonio Villa [facility] ity of 12:37:00 [facility] CBC WITH DIFF 2020-11-02 Ele Cao [place] of 09:56:00 [facility] BASIC METABOLIC PANEL (NA, K, CL, 2020[facility] CO2, GLUCOSE, BUN, CREATININE, CA) 09:56:00 [facility] VITAMIN B1 (THIAMINE), WHOLE BLOOD 2020-11-02 [facility] of 09:56:00 [facility] MAGNESIUM 2020-11-02 [facility] 09:56:00 [facility] MAGNESIUM 2020-11-02 [facility] of 09:56:00 [facility] BASIC METABOLIC PANEL (NA, K, CL, 2020-11-02 [facility] of CO2, GLUCOSE, BUN, CREATININE, CA) 09:56:00 [facility] CBC WITH DIFF 2020-11-02 [facility] of 09:56:00 [facility] VITAMIN B1 (THIAMINE), WHOLE BLOOD 2020-11-02 [facility] of 09:56:00 [facility] POCT GLUCOSE (AUTOMATED) 2020-11-02 Antonio Villa P Univers ity of 03:57:00 [facility] POCT GLUCOSE (AUTOMATED) 2020-11-02 Antonio Villa P Univers ity of 03:57:00 [facility] POCT GLUCOSE (AUTOMATED) 2020-11-02 Antonio Villa P Univers ity of 00:42:00 [facility] POCT GLUCOSE (AUTOMATED) 2020-11-02 Antonio Villa P Univers ity of 00:42:00 [facility] E[facility]ALOGRAM 2020[facility]11-[facility] ELECT[facility]ENCEPHALOGRAM 2020[facility]11-[facility] 00:[facility]:00 [facility] POCT GLUCOSE (AUTOMATED) 2020-11-01 Antonio Villa P Univers ity of 21:46:00 [facility] POCT GLUCOSE (AUTOMATED) 2020-11-01 Antonio Villa P Univers ity of 21:46:00 [facility] POCT GLUCOSE (AUTOMATED) 2020-11-01 Antonio Villa P Univers ity of 20:44:00 [facility] POCT GLUCOSE (AUTOMATED) 2020-11-01 Antonio Villa P Univers ity of 20:44:00 [facility] POCT GLUCOSE (AUTOMATED) 2020-11-01 Antonio Villa [facility] ity of 17:03:00 [facility] POCT GLUCOSE (AUTOMATED) 2020-11-01 Antonio Villa [facility] ity of 17:03:00 [facility] BASIC METABOLIC PANEL (NA, K, CL, 2020-11-01 [facility] of CO2, GLUCOSE, BUN, CREATININE, CA) 17:01:00 [facility] PROCALCITONIN 2020-11-01 [facility] 17:01:00 [facility] THYROID STIMULATING HORMONE 2020-11-01 [facility] ersity of 17:01:00 [facility] FOLATE 2020-11-01 [facility] of 17:01:00 [facility] VITAMIN B12, LEVEL 2020-11-01 [facility] of 17:01:00 [facility] VITAMIN B12, LEVEL 2020-11-01 [facility] of 17:01:00 [facility] FOLATE 2020-11-01 [facility] of 17:01:00 [facility] THYROID STIMULATING HORMONE 2020-11-01 [facility] ersity of 17:01:00 [facility] BASIC METABOLIC PANEL (NA, K, CL, 2020-11-01 [facility] of CO2, GLUCOSE, BUN, CREATININE, CA) 17:01:00 [facility] PROCALCITONIN 2020-11-01 [facility] of 17:01:00 [facility] POCT GLUCOSE (AUTOMATED) 2020-11-01 [facility] of 12:51:00 [facility] POCT GLUCOSE (AUTOMATED) 2020-11-01 [facility] of 12:51:00 [facility] CBC WITH DIFF 2020-11-01 [facility] of 10:21:00 [facility] BASIC METABOLIC PANEL (NA, K, CL, 2020-11-01 [facility] of CO2, GLUCOSE, BUN, CREATININE, CA) 10:21:00 [facility] POCT GLUCOSE (AUTOMATED) 2020-11-01 [facility] of 10:21:00 [facility] BASIC METABOLIC PANEL (NA, K, CL, 2020-11-01 [facility] CO2, GLUCOSE, BUN, CREATININE, CA) 10:21:00 [facility] CBC WITH DIFF 2020-11-01 [facility] of 10:21:00 [facility] POCT GLUCOSE (AUTOMATED) 2020-11-01 [facility] of 10:21:00 [facility] POCT GLUCOSE (AUTOMATED) 2020-11-01 [facility] of 08:03:00 [facility] POCT GLUCOSE (AUTOMATED) 2020-11-01 [facility] of 08:03:00 [facility] BASIC METABOLIC PANEL (NA, K, CL, 2020-11-01 [facility] of CO2, GLUCOSE, BUN, CREATININE, CA) 05:06:00 [facility] POCT GLUCOSE (AUTOMATED) 2020-11-01 [facility] of 05:06:00 [facility] BASIC METABOLIC PANEL (NA, K, CL, 2020-11-01 [facility] of CO2, GLUCOSE, BUN, CREATININE, CA) 05:06:00 [facility] POCT GLUCOSE (AUTOMATED) 2020-11-01 [facility] of 05:06:00 [facility] POCT GLUCOSE (AUTOMATED) 2020-11-01 [facility] of 02:17:00 [facility] POCT GLUCOSE (AUTOMATED) 2020-11-01 [facility] of 02:17:00 [facility] MR STROKE BRAIN WO CONTRAST 2020-11-01 [facility] ersity of 01:18:51 [facility] MR STROKE BRAIN WO CONTRAST 2020-11-01 [facility] ersity of 01:18:51 [facility] POCT GLUCOSE (AUTOMATED) 2020-10-31 [facility] of 23:26:00 [facility] POCT GLUCOSE (AUTOMATED) 2020-10-31 [facility] of 23:26:00 [facility] POCT GLUCOSE (AUTOMATED) 2020-10-31 [facility] of 16:40:00 [facility] POCT GLUCOSE (AUTOMATED) 2020-10-31 [facility] of 16:40:00 [facility] POCT GLUCOSE (AUTOMATED) 2020-10-31 [facility] of 12:41:00 [facility] POCT GLUCOSE (AUTOMATED) 2020-10-31 [facility] of 12:41:00 [facility] CBC WITHOUT DIFF 2020-10-31 [facility] of 11:13:00 [facility] CBC WITHOUT DIFF 2020-10-31 [facility] of 11:13:00 [facility] PREPARE PACKED RBC 2020-10-31 [facility] [[email or web address] of 06:44:13 [facility] PREPARE PACKED RBC 2020-10-31 [facility] [[email or web address] of 06:44:13 [facility] HB ABO GROUPING 2020-10-31 [facility] [[email or web address] of 05:48:00 [facility] HB ABO GROUPING 2020-10-31 [facility] [[email or web address] of 05:48:00 [facility] POCT GLUCOSE (AUTOMATED) 2020-10-31 [facility] of 05:16:00 [facility] POCT GLUCOSE (AUTOMATED) 2020-10-31 [facility] of 05:16:00 [facility] BASIC METABOLIC PANEL (NA, K, CL, 2020-10-31 Ele Cao [place] of CO2, GLUCOSE, BUN, CREATININE, CA) 04:05:00 [facility] CBC WITH DIFF 2020-10-31 Ele Cao of 04:05:00 [facility] ACTIVATED PARTIAL THRMPLAS CARLTON 2020-10-31 [facility] of 04:05:00 [facility] MAGNESIUM 2020-10-31 [facility] [[email or web address]], [facility] of 04:05:00 [facility] MAGNESIUM 2020-10-31 [facility] of 04:05:00 [facility] BASIC METABOLIC PANEL (NA, K, CL, 2020-10-31 Ele Cao of CO2, GLUCOSE, BUN, CREATININE, CA) 04:05:00 [facility] CBC WITH DIFF 2020-10-31 Ele Cao [place] of 04:05:00 [facility] ACTIVATED PARTIAL THRMPLAS CARLTON 2020-10-31 Bowen Russo [facility] of 04:05:00 [facility] HB ECG ROUTINE & RHYTHM STRIP 2020-10-31 Felix Peckethel [facility]ity of 03:58:40 [facility] HB ECG ROUTINE & RHYTHM STRIP 2020-10-31 [place] [facility] of 03:58:40 [facility] POCT GLUCOSE (AUTOMATED) 2020-10-31 [facility] of 01:27:00 [facility] POCT GLUCOSE (AUTOMATED) 2020-10-31 [facility] of 01:27:00 [facility] XR CHEST 1 VW 2020-10-31 [facility] of 01:06:00 [facility] XR CHEST 1 VW 2020-10-31 [facility] of 01:06:00 [facility] POCT GLUCOSE (AUTOMATED) 2020-10-30 [facility] of 22:08:00 [facility] POCT GLUCOSE (AUTOMATED) 2020-10-30 [facility] of 22:08:00 [facility] POCT GLUCOSE (AUTOMATED) 2020-10-30 [facility] of 19:43:00 [facility] POCT GLUCOSE (AUTOMATED) 2020-10-30 [facility] of 19:43:00 [facility] ACTIVATED PARTIAL THRMPLAS CARLTON 2020-10-30 Bowen Russo [facility] of 17:13:00 [facility] ACTIVATED PARTIAL THRMPLAS CARLTON 2020-10-30 Bowen Russo niversity of 17:13:00 [facility] POCT GLUCOSE (AUTOMATED) 2020-10-30 [facility] of 17:05:00 [facility] POCT GLUCOSE (AUTOMATED) 2020-10-30 [facility] of 17:05:00 [facility] CBC WITHOUT DIFF 2020-10-30 [facility] of 13:57:00 [facility] BASIC METABOLIC PANEL (NA, K, CL, 2020-10-30 Ele Cao of CO2, GLUCOSE, BUN, CREATININE, CA) 13:57:00 [facility] MAGNESIUM 2020-10-30 Ele Cao [place] of 13:57:00 [facility] MAGNESIUM 2020-10-30 Ele Cao [place] of 13:57:00 [facility] BASIC METABOLIC PANEL (NA, K, CL, 2020-10-30 Ele Cao of CO2, GLUCOSE, BUN, CREATININE, CA) 13:57:00 [facility] CBC WITHOUT DIFF 2020-10-30 Dianne Kiser [place] of 13:57:00 [facility] POCT GLUCOSE (AUTOMATED) 2020-10-30 [facility] of 12:40:00 [facility] POCT GLUCOSE (AUTOMATED) 2020-10-30 [facility] of 12:40:00 [facility] POCT GLUCOSE (AUTOMATED) 2020-10-30 [facility] of 09:33:00 [facility] POCT GLUCOSE (AUTOMATED) 2020-10-30 [facility] of 09:33:00 [facility] POCT GLUCOSE (AUTOMATED) 2020-10-30 [facility] of 06:23:00 [facility] POCT GLUCOSE (AUTOMATED) 2020-10-30 Antonio Villa P [facility] ity of 06:23:00 [facility] BASIC METABOLIC PANEL (NA, K, CL, 2020-10-30 Ele Cao of CO2, GLUCOSE, BUN, CREATININE, CA) 05:24:00 [facility] ACTIVATED PARTIAL THRMPLAS CARLTON 2020-10-30 [facility] of 05:24:00 [facility] CBC WITH DIFF 2020-10-30 Ele Cao [place] of 05:24:00 [facility] MAGNESIUM 2020-10-30 Dianne Kiser [place] of 05:24:00 [facility] MAGNESIUM 2020-10-30 Dianne Kiser [place] of 05:24:00 [facility] BASIC METABOLIC PANEL (NA, K, CL, 2020-10-30 Ele Cao of CO2, GLUCOSE, BUN, CREATININE, CA) 05:24:00 [facility] CBC WITH DIFF 2020-10-30 Ele Cao [place] of 05:24:00 [facility] ACTIVATED PARTIAL THRMPLAS CARLTON 2020-10-30 Bowen Russo niversity of 05:24:00 [facility] POCT GLUCOSE (AUTOMATED) 2020-10-30 [facility] of 03:24:00 [facility] POCT GLUCOSE (AUTOMATED) 2020-10-30 [facility] of 03:24:00 [facility] POCT GLUCOSE (AUTOMATED) 2020-10-30 [facility] of 00:45:00 [facility] POCT GLUCOSE (AUTOMATED) 2020-10-30 [facility] of 00:45:00 [facility] POCT GLUCOSE (AUTOMATED) 2020-10-29 [facility] of 22:25:00 [facility] POCT GLUCOSE (AUTOMATED) 2020-10-29 [facility] of 22:25:00 [facility] ACTIVATED PARTIAL THRMPLAS CARLTON 2020-10-29 Bowen Russo niversity of 20:52:00 [facility] ACTIVATED PARTIAL THRMPLAS CARLTON 2020-10-29 Bowen Russo [facility] of 20:52:00 [facility] BASIC METABOLIC PANEL (NA, K, CL, 2020-10-29 Ele Cao [place] of CO2, GLUCOSE, BUN, CREATININE, CA) 20:08:00 [facility] MAGNESIUM 2020-10-29 [facility] of 20:08:00 [facility] MAGNESIUM 2020-10-29 [facility] of 20:08:00 [facility] BASIC METABOLIC PANEL (NA, K, CL, 2020-10-29 [facility] of CO2, GLUCOSE, BUN, CREATININE, CA) 20:08:00 [facility] POCT GLUCOSE (AUTOMATED) 2020-10-29 Espinosa [facility] of 19:12:00 Prabhjot Melara [facility] POCT GLUCOSE (AUTOMATED) 2020-10-29 Francisca, Univers ity of 19:12:00 Prabhjot Melara [facility] POCT GLUCOSE (AUTOMATED) 2020-10-29 Francisca, Univers ity of 16:27:00 [facility] POCT GLUCOSE (AUTOMATED) 2020-10-29 [facility] of 16:27:00 [facility] TROPONIN I 2020-10-29 [facility]00 [facility] BASIC METABOLIC PANEL (NA, K, CL, 2020-10-29 [facility] of CO2, GLUCOSE, BUN, CREATININE, CA) 15:15:00 [facility] ACTIVATED PARTIAL THRMPLAS CARLTON 2020-10-29 Bowen Russo niversity of 15:15:00 [facility] TROPONIN I 2020-10-29 [facility] 15:15:00 [facility] BASIC METABOLIC PANEL (NA, K, CL, 2020-10-29 [facility] CO2, GLUCOSE, BUN, CREATININE, CA) 15:15:00 [facility] ACTIVATED PARTIAL THRMPLAS CARLTON 2020-10-29 Bowen Russo niversity of 15:15:00 [facility] POCT GLUCOSE (AUTOMATED) 2020-10-29 [facility] of 12:54:00 [facility] POCT GLUCOSE (AUTOMATED) 2020-10-29 [facility] of 12:54:00 [facility] XR BONE SURVEY 2020-10-29 [facility] of 09:39:57 [facility] XR BONE SURVEY 2020-10-29 [facility] of 09:39:57 [facility] MRSA / MSSA SCREEN BY PCRBRITNEY 2020-10-29 [facility] of 08:01:00 [facility] MRSA / MSSA SCREEN BY PCRBRITNEY 2020-10-29 [facility] of 08:01:00 [facility] TROPONIN I 2020-10-29 Fernando Yuan [facility] 08:00:00 [facility] CBC WITH DIFF 2020-10-29 [facility] of 08:00:00 [facility] BASIC METABOLIC PANEL (NA, K, CL, 2020-10-29 [facility] of CO2, GLUCOSE, BUN, CREATININE, CA) 08:00:00 [facility] TROPONIN I 2020-10-29 Fernando Yuan, [place] of 08:00:00 [facility] BASIC METABOLIC PANEL (NA, K, CL, 2020-10-29 Ele Cao [place] of CO2, GLUCOSE, BUN, CREATININE, CA) 08:00:00 [facility] CBC WITH DIFF 2020-10-29 Ele Cao [place] of 08:00:00 [facility] POCT GLUCOSE (AUTOMATED) 2020-10-29 [facility] of 07:09:00 [facility] POCT GLUCOSE (AUTOMATED) 2020-10-29 [facility] of 07:09:00 [facility] POCT GLUCOSE (AUTOMATED) 2020-10-29 [facility] of 03:58:00 [facility] POCT GLUCOSE (AUTOMATED) 2020-10-29 [facility] of 03:58:00 [facility] TROPONIN I 2020-10-29 [facility] 03:18:00 [facility] CBC WITH DIFF 2020-10-29 [facility] of 03:18:00 [facility] BASIC METABOLIC PANEL (NA, K, CL, 2020-10-29 [facility] [[email or web address]], [facility] of CO2, GLUCOSE, BUN, CREATININE, CA) 03:18:00 [facility] MAGNESIUM 2020-10-29 [facility] of 03:18:00 [facility] MAGNESIUM 2020-10-29 [facility] of 03:18:00 [facility] TROPONIN I 2020-10-29 [facility] 03:18:00 [facility] BASIC METABOLIC PANEL (NA, K, CL, 2020-10-29 [facility] [[email or web address]], [facility] of CO2, GLUCOSE, BUN, CREATININE, CA) 03:18:00 [facility] CBC WITH DIFF 2020-10-29 [facility] [[email or web address]], [facility] of 03:18:00 [facility] PROTHROMBIN TIME / INR 2020-10-29 [facility] [[email or web address]], [facility] y of 03:17:00 [facility] FIBRINOGEN 2020-10-29 [facility] [[email or web address]], [facility] of 03:17:00 [facility] PROTHROMBIN TIME / INR 2020-10-29 [facility] [[email or web address]], [facility] y of 03:17:00 [facility] FIBRINOGEN 2020-10-29 [facility] of 03:17:00 [facility] AC PANEL 20 + LACTIC ACID 2020-10-29 [facility] sity of 03:09:00 [facility] AC PANEL 20 + LACTIC ACID 2020-10-29 [facility] [[email or web address]], [facility] sity of 03:09:00 [facility] CT HEAD WO CONTRAST 2020-10-29 [facility] o f 02:45:23 [facility] CT HEAD WO CONTRAST 2020-10-29 [facility] [[email or web address]], [facility] o f 02:45:23 [facility] POCT GLUCOSE (AUTOMATED) 2020-10-29 [facility] of 01:09:00 [facility] POCT GLUCOSE (AUTOMATED) 2020-10-29 [facility] of 01:09:00 [facility] POCT GLUCOSE (AUTOMATED) 2020-10-28 [facility] ity of 21:42:00 [facility] POCT GLUCOSE (AUTOMATED) 2020-10-28 [facility] of 21:42:00 [facility] TRANSTHORACIC ECHO (TTE) COMPLETE 2020-10-28 [facility] W/ CONTRAST 20:20:00 [facility] TRANSTHORACIC ECHO (TTE) COMPLETE 2020-10-28 [facility]/ CONTRAST 20:20:00 [facility] POCT GLUCOSE (AUTOMATED) 2020-10-28 [facility] of 16:35:00 [facility] POCT GLUCOSE (AUTOMATED) 2020-10-28 [facility] of 16:35:00 [facility] XR CHEST 1 VW 2020-10-28 [facility] 15:19:34 [facility] XR CHEST 1 VW 2020-10-28 [facility], [place] of 15:19:34 [facility] HB ECG ROUTINE & RHYTHM STRIP 2020-10-28 Leonel, Un iversity of 14:00:32 [facility] HB ECG ROUTINE & RHYTHM STRIP 2020-10-28 Leonel, Un iversity of 14:00:32 [facility] AC PANEL 20 + LACTIC ACID 2020-10-28 Leonel, Univer sity of 13:52:00 [facility] AC PANEL 20 + LACTIC ACID 2020-10-28 Leonel, Univer sity of 13:52:00 [facility] POCT GLUCOSE (AUTOMATED) 2020-10-28 [facility] of 13:44:00 [facility] POCT GLUCOSE (AUTOMATED) 2020-10-28 [facility] of 13:44:00 [facility] POCT GLUCOSE (AUTOMATED) 2020-10-28 [facility] of 13:15:00 [facility] POCT GLUCOSE (AUTOMATED) 2020-10-28 [facility] of 13:15:00 [facility] POCT GLUCOSE (AUTOMATED) 2020-10-28 [facility] of 10:41:00 [facility] POCT GLUCOSE (AUTOMATED) 2020-10-28 [facility] of 10:41:00 [facility] URINE CULTURE 2020-10-28 [facility] of 07:48:00 [facility] URINE CULTURE 2020-10-28 [facility] of 07:48:00 [facility] TROPONIN I 2020-10-28 [facility] of 07:45:00 [facility] CBC WITHOUT DIFF 2020-10-28 [facility] of 07:45:00 [facility] BASIC METABOLIC PANEL (NA, K, CL, 2020-10-28 [facility] of CO2, GLUCOSE, BUN, CREATININE, CA) 07:45:00 [facility] TROPONIN I 2020-10-28 [facility] of 07:45:00 [facility] BASIC METABOLIC PANEL (NA, K, CL, 2020-10-28 [facility] of CO2, GLUCOSE, BUN, CREATININE, CA) 07:45:00 [facility] CBC WITHOUT DIFF 2020-10-28 [facility] of 07:45:00 [facility] POCT GLUCOSE (AUTOMATED) 2020-10-28 [facility] of 07:37:00 [facility] POCT GLUCOSE (AUTOMATED) 2020-10-28 [facility] of 07:37:00 [facility] POCT GLUCOSE (AUTOMATED) 2020-10-28 [facility] of 04:15:00 [facility] POCT GLUCOSE (AUTOMATED) 2020-10-28 [facility] of 04:15:00 [facility] POCT GLUCOSE (AUTOMATED) 2020-10-28 [facility] of 01:28:00 [facility] POCT GLUCOSE (AUTOMATED) 2020-10-28 [facility] of 01:28:00 [facility] BLOOD CULTURE SCREEN 2020-10-27 [facility] of 23:28:00 [facility] BLOOD CULTURE SCREEN 2020-10-27 [facility] of 23:28:00 [facility] BASIC METABOLIC PANEL (NA, K, CL, 2020-10-27 [facility] of CO2, GLUCOSE, BUN, CREATININE, CA) 21:40:00 [facility] TROPONIN I 2020-10-27 [facility] of 21:40:00 [facility] EXTRA TUBE LAV 2020-10-27 [facility] 21:40:00 [facility] TROPONIN I 2020-10-27 [facility] of 21:40:00 [facility] BASIC METABOLIC PANEL (NA, K, CL, 2020-10-27 [facility] of CO2, GLUCOSE, BUN, CREATININE, CA) 21:40:00 [facility] EXTRA TUBE LAV 2020-10-27 [facility] 21:40:00 [facility]OMATED) 2020-10-27 Vonda Starks [facility] ity of 21:28:00 [facility] POCT GLUCOSE (AUTOMATED) 2020-10-27 Vonda Starks [facility] ity of 21:28:00 [facility] POCT GLUCOSE (AUTOMATED) 2020-10-27 Vonda Starks [facility] ity of 19:12:00 [facility] POCT GLUCOSE (AUTOMATED) 2020-10-27 Vonda Starks [facility] ity of 19:12:00 [facility] POCT GLUCOSE (AUTOMATED) 2020-10-27 Vonda Starks [facility] ity of 16:09:00 [facility] POCT GLUCOSE (AUTOMATED) 2020-10-27 Vonda Starks [facility] ity of 16:09:00 [facility] CBC WITH DIFF 2020-10-27 Jax Austin [place] of 13:09:00 [facility] CBC WITH DIFF 2020-10-27 Jax Austin [place] of 13:09:00 [facility] POCT GLUCOSE (AUTOMATED) 2020-10-27 Vonda Starks [facility] ity of 12:57:00 [facility] POCT GLUCOSE (AUTOMATED) 2020-10-27 Vonda Starks [facility] ity of 12:57:00 [facility] BASIC METABOLIC PANEL (NA, K, CL, 2020-10-27 Norman Jax [place] of CO2, GLUCOSE, BUN, CREATININE, CA) 10:57:00 [facility] TROPONIN I 2020-10-27 [facility] of 10:57:00 [facility] TROPONIN I 2020-10-27 [facility] of 10:57:00 [facility] BASIC METABOLIC PANEL (NA, K, CL, 2020-10-27 Norman Jax [place] of CO2, GLUCOSE, BUN, CREATININE, CA) 10:57:00 [facility] BASIC METABOLIC PANEL (NA, K, CL, 2020-10-27 Norman [facility] of CO2, GLUCOSE, BUN, CREATININE, CA) 05:09:00 [facility] TROPONIN I 2020-10-27 Norman Jax [place] of 05:09:00 [facility] TROPONIN I 2020-10-27 Norman Jax [place] of 05:09:00 [facility] BASIC METABOLIC PANEL (NA, K, CL, 2020-10-27 Norman Jax [place] of CO2, GLUCOSE, BUN, CREATININE, CA) 05:09:00 [facility] POCT GLUCOSE (AUTOMATED) 2020-10-27 Vonda Starks [facility] ity of 02:53:00 [facility] POCT GLUCOSE (AUTOMATED) 2020-10-27 Vonda Starks [facility] ity of 02:53:00 [facility] BASIC METABOLIC PANEL (NA, K, CL, 2020-10-26 Norman Jax [place] of CO2, GLUCOSE, BUN, CREATININE, CA) 22:44:00 [facility] BASIC METABOLIC PANEL (NA, K, CL, 2020-10-26 [facility] of CO2, GLUCOSE, BUN, CREATININE, CA) 22:44:00 [facility] POCT GLUCOSE (AUTOMATED) 2020-10-26 Vonda Starks [facility] of 21:39:00 [facility] POCT GLUCOSE (AUTOMATED) 2020-10-26 Vonda Starks [facility] it[facility] of 21:39:00 [facility] XR ABDOMEN 1 VW 2020-10-26 [facility] of 20:25:00 [facility] XR ABDOMEN 1 VW 2020-10-26 [facility] of 20:25:00 [facility] POCT GLUCOSE (AUTOMATED) 2020-10-26 Vonda Starks [facility] of 16:55:00 [facility] POCT GLUCOSE (AUTOMATED) 2020-10-26 Jairo Starksd Univers ity of 16:55:00 [facility] POCT GLUCOSE (AUTOMATED) 2020-10-26 Vonda Starks [facility] of 12:57:00 [facility] POCT GLUCOSE (AUTOMATED) 2020-10-26 Vonda Starks [facility] ity of 12:57:00 [facility] BASIC METABOLIC PANEL (NA, K, CL, 2020-10-26 [facility] of CO2, GLUCOSE, BUN, CREATININE, CA) 08:46:00 [facility] [facility] CBC WITH DIFF 2020-10-26 Margi [facility] of 08:46:00 [facility] MAGNESIUM 2020-10-26 Margi [facility] of 08:46:00 [facility] TROPONIN I 2020-10-26 Mars [facility] of 08:46:00 [facility] MAGNESIUM 2020-10-26 Mars [facility] of 08:46:00 [facility] TROPONIN I 2020-10-26 [facility] of 08:46:00 [facility] BASIC METABOLIC PANEL (NA, K, CL, 2020-10-26 [facility] of CO2, GLUCOSE, BUN, CREATININE, CA) 08:46:00 [facility] CBC WITH DIFF 2020-10-26 Margi [facility] of 08:46:00 [facility] TROPONIN I 2020-10-26 Katina [facility] of 02:23:00 [facility] TROPONIN I 2020-10-26 Katina [facility] of 02:23:00 [facility] POCT GLUCOSE (AUTOMATED) 2020-10-26 Vonda Starks [facility] ity of 02:22:00 [facility] POCT GLUCOSE (AUTOMATED) 2020-10-26 Vonda Starks [facility] ity of 02:22:00 [facility] POCT GLUCOSE (AUTOMATED) 2020-10-25 Vonda Starks [facility] ity of 23:35:00 [facility] POCT GLUCOSE (AUTOMATED) 2020-10-25 Vonda Starks [facility] ity of 23:35:00 [facility] BASIC METABOLIC PANEL (NA, K, CL, 2020-10-25 [facility] of CO2, GLUCOSE, BUN, CREATININE, CA) 19:50:00 [facility] MAGNESIUM 2020-10-25 [facility] of 19:50:00 [facility] TROPONIN I 2020-10-25 [facility] of 19:50:00 [facility] MAGNESIUM 2020-10-25 [facility] of 19:50:00 [facility] TROPONIN I 2020-10-25 [facility] of 19:50:00 [facility] BASIC METABOLIC PANEL (NA, K, CL, 2020-10-25 [facility] of CO2, GLUCOSE, BUN, CREATININE, CA) 19:50:00 [facility] AC PANEL 20 + LACTIC ACID 2020-10-25 Margi [facility] sity of 19:49:00 [facility] AC PANEL 20 + LACTIC ACID 2020-10-25 Margi [facility] sity of 19:49:00 [facility] HB ECG ROUTINE & RHYTHM STRIP 2020-10-25 Dianne Kiser iversity of 19:35:45 [facility] HB ECG ROUTINE & RHYTHM STRIP 2020-10-25 Dianne Kiser Un iversity of 19:35:45 [facility] AC PANEL 20 + LACTIC ACID 2020-10-25 Bowen Russoer sity of 18:22:00 [facility] AC PANEL 20 + LACTIC ACID 2020-10-25 Rafaela, Bow[facility] Univer sity of 18:22:00 [facility] POCT GLUCOSE (AUTOMATED) 2020-10-25 Vonda Starks [facility] ity of 17:15:00 [facility] POCT GLUCOSE (AUTOMATED) 2020-10-25 Vonda Starks Univers ity of 17:15:00 [facility] AC PANEL 20 + LACTIC ACID 2020-10-25 Rafaela, [facility] sity of 15:21:00 [facility] AC PANEL 20 + LACTIC ACID 2020-10-25 Rafaela, Bowen Jaffeer sity of 15:21:00 [facility] POCT GLUCOSE (AUTOMATED) 2020-10-25 Vonda Starks Univers ity of 12:42:00 [facility] POCT GLUCOSE (AUTOMATED) 2020-10-25 Vonda Starks Univers ity of 12:42:00 [facility] CBC WITH DIFF 2020-10-25 Jax Austin [place] of 08:27:00 [facility] BASIC METABOLIC PANEL (NA, K, CL, 2020-10-25 Jax Austin [place] of CO2, GLUCOSE, BUN, CREATININE, CA) 08:27:00 [facility] MAGNESIUM 2020-10-25 Jax Austin of 08:27:00 [facility] MAGNESIUM 2020-10-25 Jax Austin [place] of 08:27:00 [facility] BASIC METABOLIC PANEL (NA, K, CL, 2020-10-25 Jax Austin of CO2, GLUCOSE, BUN, CREATININE, CA) 08:27:00 [facility] CBC WITH DIFF 2020-10-25 Jax Austin [place] of 08:27:00 [facility] POCT GLUCOSE (AUTOMATED) 2020-10-25 Vonda Starks [facility] ity of 01:28:00 [facility] POCT GLUCOSE (AUTOMATED) 2020-10-25 Vonda Starks Univers ity of 01:28:00 [facility] POCT GLUCOSE (AUTOMATED) 2020-10-24 Vonda Starks Univers ity of 21:35:00 [facility] POCT GLUCOSE (AUTOMATED) 2020-10-24 Vonda Starks Univers ity of 21:35:00 [facility] CT HEAD WO CONTRAST 2020-10-24 Jax Austin o f 19:12:43 [facility] CT HEAD WO CONTRAST 2020-10-24 Jax Austin [facility] o f 19:12:43 [facility] POCT GLUCOSE (AUTOMATED) 2020-10-24 Vonda Starks Univers ity of 16:51:00 [facility] POCT GLUCOSE (AUTOMATED) 2020-10-24 Vonda Starks Univers ity of 16:51:00 [facility] CT THORAX W CONTRAST 2020-10-24 Jax Austin of 14:08:31 [facility] CT THORAX W CONTRAST 2020-10-24 Jax Austin [place] of 14:08:31 [facility] CT ABDOMEN PELVIS W CONTRAST 2020-10-24 Jax Austin Uni versity of 14:06:06 [facility] CT ABDOMEN PELVIS W CONTRAST 2020-10-24 Jax Austin Uni versity of 14:06:06 [facility] POCT GLUCOSE (AUTOMATED) 2020-10-24 Vonda Starks [facility] ity of 12:42:00 [facility] POCT GLUCOSE (AUTOMATED) 2020-10-24 Vonda Starks [facility] ity of 12:42:00 [facility] MAGNESIUM 2020-10-24 kelechi [facility] of 09:41:00 [facility] BASIC METABOLIC PANEL (NA, K, CL, 2020-10-24 [facility] of CO2, GLUCOSE, BUN, CREATININE, CA) 09:41:00 [facility] CBC WITH DIFF 2020-10-24 kelechi [facility] of 09:41:00 [facility] MAGNESIUM 2020-10-24 [facility] of 09:41:00 [facility] BASIC METABOLIC PANEL (NA, K, CL, 2020-10-24 [facility] of CO2, GLUCOSE, BUN, CREATININE, CA) 09:41:00 [facility] CBC WITH DIFF 2020-10-24 Shauna Baron [place] of 09:41:00 [facility] AUTHORIZATION FOR RELEASE OF PHI 2020-10-24 [facility] of 05:01:00 Unassigned, No [facility] AUTHORIZATION FOR RELEASE OF PHI 2020-10-24 [facility] of 05:01:00 Unassigned, No [facility] POCT GLUCOSE (AUTOMATED) 2020-10-24 Vonda Starks Univers ity of 01:01:00 [facility] POCT GLUCOSE (AUTOMATED) 2020-10-24 Vonda Starks Univers ity of 01:01:00 [facility] POCT GLUCOSE (AUTOMATED) 2020-10-23 Vonda Starks Univers ity of 23:29:00 [facility] POCT GLUCOSE (AUTOMATED) 2020-10-23 Vonda Starks Univers ity of 23:29:00 [facility] POCT GLUCOSE (AUTOMATED) 2020-10-23 Vonda Starks Univers ity of 18:06:00 [facility] POCT GLUCOSE (AUTOMATED) 2020-10-23 Vonda Starks Univers ity of 18:06:00 [facility] CBC WITH DIFF 2020-10-23 [facility] CBC WITH DIFF 2020-10-23 [facility] 13:08[facility]00 [facility] POCT GLUCOSE (AUTOMATED) 2020-10-23 Vonda Starks Univers ity of 13:06:00 [facility] POCT GLUCOSE (AUTOMATED) 2020-10-23 Vonda Starks Univers ity of 13:06:00 [facility] PREPARE PACKED RBC 2020-10-23 Ele Cao [place] of 10:02:05 [facility] PREPARE PACKED RBC 2020-10-23 Ele Cao [place] of 10:02:05 [facility] CBC WITH DIFF 2020-10-23 Jax Austin [place] of 08:46:00 [facility] BASIC METABOLIC PANEL (NA, K, CL, 2020-10-23 Jax Austin [place] of CO2, GLUCOSE, BUN, CREATININE, CA) 08:46:00 [facility] MAGNESIUM 2020-10-23 Ele Cao [place] of 08:46:00 [facility] MAGNESIUM 2020-10-23 Ele Cao [place] of 08:46:00 [facility] BASIC METABOLIC PANEL (NA, K, CL, 2020-10-23 Jax Austin of CO2, GLUCOSE, BUN, CREATININE, CA) 08:46:00 [facility] CBC WITH DIFF 2020-10-23 Jax Austin of 08:46:00 [facility] TROPONIN I 2020-10-22 Jax Austin of 22:48:00 [facility] CBC WITH DIFF 2020-10-22 Jax Austin of 22:48:00 [facility] TROPONIN I 2020-10-22 Jax Austin of 22:48:00 [facility] CBC WITH DIFF 2020-10-22 Jax Austin of 22:48:00 [facility] XR ABDOMEN 1 VW 2020-10-22 Jax Austin of 22:32:58 [facility] XR ABDOMEN 1 VW 2020-10-22 Jax Austin of 22:32:58 [facility] GLYCOSYLATED HEMOGLOBIN (A1C) 2020-10-22 Jax Austin iversity of 18:10:00 [facility] IRON PANEL 2020-10-22 Jax Austin of 18:10:00 [facility] IRON PANEL 2020-10-22 Jax Austin of 18:10:00 [facility] GLYCOSYLATED HEMOGLOBIN (A1C) 2020-10-22 Jax Austin iversity of 18:10:00 [facility] XR CHEST 1 VW 2020-10-22 Jax Austin of 17:58:02 [facility] XR CHEST 1 VW 2020-10-22 Jax Austin of 17:58:02 [facility] AC PANEL 20 + LACTIC ACID 2020-10-22 Jax Austin sity of 17:30:00 [facility] AC PANEL 20 + LACTIC ACID 2020-10-22 Jax Austin of 17:30:00 [facility] BLOOD CULTURE SCREEN 2020-10-22 Jax Austin of 17:17:00 [facility] BLOOD CULTURE SCREEN 2020-10-22 aJx Austin of 17:17:00 [facility] URINALYSIS 2020-10-22 Jax Austin of 16:59:00 [facility] URINE CULTURE 2020-10-22 Jax Austin [place] of 16:59:00 [facility] BASIC METABOLIC PANEL (NA, K, CL, 2020-10-22 Jax Austin of CO2, GLUCOSE, BUN, CREATININE, CA) 16:59:00 [facility] CBC WITH DIFF 2020-10-22 Jax Austin [place] of 16:59:00 [facility] FIBRINOGEN 2020-10-22 Jax Austin [place] of 16:59:00 [facility] PROTHROMBIN TIME / INR 2020-10-22 Jax Austin [facility] y of 16:59:00 [facility] HEPATIC FUNCTION PANEL ([id number]) 2020-10-22 Jax Austin niversity of (ALB,T.PRO,BILI 16:59:00 [facility] T,BU/BC,ALT,AST,ALK PHOS) [place] FERRITIN SERUM 2020-10-22 Jax Austin [place] of 16:59:00 [facility] TROPONIN I 2020-10-22 Jax Austin [place] of 16:59:00 [facility] FERRITIN SERUM 2020-10-22 Norman Jax [place] of 16:59:00 [facility] TROPONIN I 2020-10-22 Jax Austin [place] of 16:59:00 [facility] HEPATIC FUNCTION PANEL ([id number]) 2020-10-22 Jax Austin niversity of (ALB,T.PRO,BILI 16:59:00 [facility] T,BU/BC,ALT,AST,ALK PHOS) [place] BASIC METABOLIC PANEL (NA, K, CL, 2020-10-22 Jax Austin of CO2, GLUCOSE, BUN, CREATININE, CA) 16:59:00 [facility] CBC WITH DIFF 2020-10-22 Jax Austin [place] of 16:59:00 [facility] PROTHROMBIN TIME / INR 2020-10-22 Jax Austin [facility] y of 16:59:00 [facility] FIBRINOGEN 2020-10-22 Jax Austin [place] of 16:59:00 [facility] URINALYSIS 2020-10-22 Jax Austin [place] of 16:59:00 [facility] URINE CULTURE 2020-10-22 Jax Austin [place] of 16:59:00 [facility] MRSA / MSSA SCREEN BY BRITNEY MTZ 2020-10-22 Jax Austin [place] of 16:45:00 [facility] MRSA / MSSA SCREEN BY PCR, BRITNEY 2020-10-22 Jax Austin [place] of 16:45:00 [facility] HB ECG ROUTINE & RHYTHM STRIP 2020-10-22 Jax Austin Un iversity of 16:40:04 [facility] HB ECG ROUTINE & RHYTHM STRIP 2020-10-22 Jax Austin Un iversity of 16:40:04 [facility] HB ABO GROUPING 2020-10-22 Jax Austin [place] of 16:30:00 [facility] HB ABO GROUPING 2020-10-22 Norman Jax [place] of 16:30:00 [facility] HOSPITAL ADMISSION 2020-10-22 [facility] of 05:01:00 Unassigned, No [facility] HOSPITAL ADMISSION 2020-10-22 [facility] of 05:01:00 Unassigned, No [facility] REFERRAL- REQUEST/RESPONSE 2020-07-04 [facility] rsity of 06:01:00 Unassigned, No [facility] TROPONIN I 2020-05-03 [facility] of 19:53:00 [facility] HEPATIC FUNCTION PANEL ([id number]) 2020-05-03 [facility] of (ALB,T.PRO,BILI 19:53:00 [facility],BU/BC,ALT,AST,ALK PHOS) [place] BASIC METABOLIC PANEL (NA, K, CL, 2020-05-03 [facility] of CO2, GLUCOSE, BUN, CREATININE, CA) 19:53:00 [facility] CBC WITH DIFF 2020-05-03 [facility] of 19:53:00 [facility] N-TERMINAL PRO-BNP 2020-05-03 [facility] o f 19:53:00 [facility] HB ABO GROUPING 2020-05-03 [facility] of 19:52:00 [facility] EKG-12 LEAD 2020-05-03 [facility] of 19:00:54 [facility] CONSENT/REFUSAL FOR DIAGNOSIS AND 2020-05-03 [facility] TREATMENT 18:25:10 Unassigned, No [facility] MEDICAL RELEASE/CLEARANCE FORMS 2019-11-16 [facility] of 05:01:00 Unassigned, No [facility] POCT GLUCOSE (AUTOMATED) 2019-10-28 Faustino Mason [facility] ity of 12:52:00 [facility] URIC ACID 2019-10-28 Faustino Mason [place] of 09:13:00 [facility] COMP. METABOLIC PANEL ([id number]) 2019-10-28 Faustino Mason iversity of 09:13:00 [facility] CBC WITH DIFFERENTIAL 2019-10-28 Faustino Mason [place] of 09:13:00 [facility] N-TERMINAL PRO-BNP 2019-10-28 Faustino Mason [place] of 09:13:00 [facility] POCT GLUCOSE (AUTOMATED) 2019-10-28 Faustino Mason Univers ity of 01:54:00 [facility] POCT GLUCOSE (AUTOMATED) 2019-10-27 Faustino Mason [facility] ity of 21:06:00 [facility] POCT GLUCOSE (AUTOMATED) 2019-10-27 Faustino Mason [facility] ity of 16:18:00 [facility] TROPONIN I 2019-10-27 Faustino Mason [place] of 15:00:00 [facility] PROFILE / HEMOGRAM 2019-10-27 Faustino Mason [place] of 15:00:00 [facility] POCT GLUCOSE (AUTOMATED) 2019-10-27 Faustino Mason Univers ity of 14:34:00 [facility] POCT GLUCOSE (AUTOMATED) 2019-10-27 Faustino Mason [facility] ity of 12:39:00 [facility] URINALYSIS 2019-10-27 Faustino Mason [place] of 10:46:00 [facility] POCT GLUCOSE (AUTOMATED) 2019-10-27 Faustino Mason Univers ity of 10:46:00 [facility] UREA NITROGEN, URINE RANDOM 2019-10-27 Faustino Mason Univ ersity of 10:46:00 [facility] SODIUM, URINE RANDOM 2019-10-27 Faustino Mason [place] of 10:46:00 [facility] PROTEIN CREAT RATIO URINE RANDOM 2019-10-27 [facility] 10:[facility]00 [facility] URIC ACID 2019-10-27 Faustino Mason [place] of 09:10:00 [facility] MAGNESIUM 2019-10-27 [facility] 09:10[facility]00 [facility] TROPONIN I 2019-10-27 Faustino Mason of 09:10:00 [facility] COMP. METABOLIC PANEL ([id number]) 2019-10-27 Faustino Mason Un iversity of 09:10:00 [facility] SEDIMENTATION RATE 2019-10-27 Faustino Mason [place] of 09:10:00 [facility] CBC WITH DIFFERENTIAL 2019-10-27 Faustino Mason [place] of 09:10:00 [facility] N-TERMINAL PRO-BNP 2019-10-27 Faustino Mason [place] of 09:10:00 [facility] POCT GLUCOSE (AUTOMATED) 2019-10-27 Faustino Mason [facility] ity of 08:44:00 [facility] POCT GLUCOSE (AUTOMATED) 2019-10-27 Faustino Mason [facility] ity of 06:32:00 [facility] POCT GLUCOSE (AUTOMATED) 2019-10-27 Aisha Bah Univer sity of 05:30:00 [facility] CBC WITH DIFFERENTIAL 2019-10-27 Aisha Bah Universit y of 04:30:00 [facility] GLYCOSYLATED HEMOGLOBIN (A1C) 2019-10-27 Faustino Mason Un iversity of 04:30:00 [facility] CORONAVIRUS COVID-19 TESTING 2019-10-27 Aisha Bah Un iversity of 04:30:00 [facility] POCT GLUCOSE (AUTOMATED) 2019-10-27 Aisha Bah Univer sity of 04:29:00 [facility] POCT GLUCOSE (AUTOMATED) 2019-10-27 Aisha Bah Univer sity of 03:32:00 [facility] POCT GLUCOSE (AUTOMATED) 2019-10-27 Aisha Bah Univer sity of 02:53:00 [facility] PHOSPHORUS 2019-10-27 Faustino Mason of 02:47:00 [facility] CREATINE KINASE 2019-10-27 Faustino Mason [place] of 02:47:00 [facility] URIC ACID 2019-10-27 Faustino Mason [place] of 02:47:00 [facility] LIPASE 2019-10-27 Faustino Mason [place] of 02:47:00 [facility] MAGNESIUM 2019-10-27 Marlon, [facility] of 02:47:00 [facility] FERRITIN SERUM 2019-10-27 [facility] of 02:47:00 [facility] TROPONIN I 2019-10-27 [facility] of 02:47:00 [facility] HEPATIC FUNCTION PANEL ([id number]) 2019-10-27 Marlon andrzej niversity of (ALB,T.PRO,BILI 02:47:00 [facility],BU/BC,ALT,AST,ALK PHOS) [place] BASIC METABOLIC PANEL (NA, K, CL, 2019-10-27 [facility] of CO2, GLUCOSE, BUN, CREATININE, CA) 02:47:00 [facility] LIPID PANEL ([id number])(TOTAL 2019-10-27 [facility] sity of CHOLESTEROL, TRIGLYCERIDES, HDL) 02:47:00 [facility] EKG-12 LEAD 2019-10-27 [facility] of 02:12:49 [facility] EKG-12 LEAD 2019-10-27 [facility] of 01:34:49 [facility] URIC ACID 2019-10-26 [facility] of 20:20:00 [facility] IRON PANEL 2019-10-26 [facility] of 20:20:00 [facility] ASSIGNMENT OF BENEFITS 2019-10-26 Doctor Universit y of 19:55:10 Unassigned, No [facility] POCT GLUCOSE (AUTOMATED) 2019-10-01 Pritesh Sunshine [facility] sity of 16:41:00 [facility] BASIC METABOLIC PANEL (NA, K, CL, 2019-10-01 Lauro Mcneil [place] of CO2, GLUCOSE, BUN, CREATININE, CA) 12:53:00 [facility] POCT GLUCOSE (AUTOMATED) 2019-10-01 Pritesh Sunshine [facility] s[facility] of 12:18:00 [facility] POCT GLUCOSE (AUTOMATED) 2019-10-01 Pritesh Sunshine [facility] sity of 01:51:00 [facility] POCT GLUCOSE (AUTOMATED) 2019-09-30 Pritesh Sunshine [facility] sity of 21:28:00 [facility] POCT GLUCOSE (AUTOMATED) 2019-09-30 Pritesh Sunshine [facility] sity of 16:51:00 [facility] POCT GLUCOSE (AUTOMATED) 2019-09-30 Pritesh Sunshine [facility] sity of 12:41:00 [facility] OCCULT (GUAIAC) BLOOD 2019-09-30 [facility] of 09:00:00 [facility] MAGNESIUM 2019-09-30 [facility] of 08:25:00 [facility] BASIC METABOLIC PANEL (NA, K, CL, 2019-09-30 [facility] of CO2, GLUCOSE, BUN, CREATININE, CA) 08:25:[address] [facility] CT THORAX WO CONTRAST 2019-09-30 [facility] of 02:53:31 [facility] URINALYSIS 2019-09-30 Brennan, [facility] [place] of 02:28:00 [facility] EXTRA TUBE URINE CULTURE 2019-09-30 Anu Nmfrancisco [facility] ity of 02:28:00 [facility] POCT GLUCOSE (AUTOMATED) 2019-09-30 Pritesh Sunshine [facility] sity of 01:26:00 [facility] XR CHEST 1 VW 2019-09-29 Anu [facility] [place] of 22:13:05 [facility] XR FOOT 3+ VW RIGHT 2019-09-29 Anu [facility] [place] of 22:13:05 [facility] TROPONIN I 2019-09-29 Anu [facility] [place] of 21:57:00 [facility] HEPATIC FUNCTION PANEL ([id number]) 2019-09-29 Chong Brennan niversity of (ALB,T.PRO,BILI 21:57:00 [facility] T,BU/BC,ALT,AST,ALK PHOS) [place] BASIC METABOLIC PANEL (NA, K, CL, 2019-09-29 Brennan, Nmfrancisco [place] of CO2, GLUCOSE, BUN, CREATININE, CA) 21:57:00 [facility] CBC WITH DIFFERENTIAL 2019-09-29 Chong Brennan [place] of 21:57:00 [facility] PROTHROMBIN TIME / INR 2019-09-29 [facility]ong [facility] 21:57:00 [facility] ACTIVATED PARTIAL THRMPLAS CARLTON 2019-09-29 Chong Brennan U niversity of 21:57:00 [facility] N-TERMINAL PRO-BNP 2019-09-29 Anu Nmfrancisco [place] of 21:57:00 [facility] EKG-12 LEAD 2019-09-29 Brennan, [facility] [place] of 21:47:42 [facility] COMP. METABOLIC PANEL ([id number]) 2019-09-29 Igor Borrego Un iversity of 15:14:00 [facility] CBC WITH DIFFERENTIAL 2019-09-29 [place], [facility] of 15:14:00 [facility] XR CHEST 2 VW 2019-09-29 [place], [facility] of 14:58:38 [facility] CONSENT/REFUSAL FOR DIAGNOSIS AND 2019-09-29 Doctor [facility] 14:13:28 Unassigned, No [facility] ASSIGNMENT OF BENEFITS 2019-09-29 Doctor [facility] of 14:13:08 Unassigned, No [facility] REFERRAL OCCUPATIONAL THERAPY 2019-09-28 Gilberto Byrne Un iversity of 00:00:00 [facility] [B] CMP 2019-09-28 University 00:00:00 [facility] [B] CBC 2019-09-28 University 00:00:00 [facility] ASSIGNMENT OF BENEFITS 2019-09-21 Doctor [facility] of 18:05:04 Unassigned, No [facility] CONSENT/REFUSAL FOR DIAGNOSIS AND 2019-09-21 [facility] 18:03:13 Unassigned, No [facility] NOTICE OF BILLING PRACTICES FOR 2019-09-21 [facility] MEDICARE PATIENTS 18:02:38 Unassigned, No [facility] CONSENT TO PHOTOGRAPH 2019-09-21 [facility] 05:01:00 Unassigned, No [facility] REFERRAL OCCUPATIONAL THERAPY 2019-09-21 Gilberto Byrne Un iversity of 00:00:00 [facility] XR CHEST 2 VW 2019-09-19 Gisselle Kwon [place] of 01:24:42 [facility] POCT GLUCOSE (AUTOMATED) 2019-09-15 [facility] ity of 17:47:00 Wayne [facility] BASIC METABOLIC PANEL (NA, K, CL, 2019-09-15 Derrick Curiel [place] [id number], GLUCOSE, BUN, CREATININE, CA) 16:59:00 [facility] CBC WITH DIFFERENTIAL 2019-09-15 [facility] of 16:59:00 [facility] POCT GLUCOSE (AUTOMATED) 2019-09-15 [facility] ity of 13:32:00 [facility] POCT GLUCOSE (AUTOMATED) 2019-09-15 [facility] ity of 03:19:00 [facility] POCT GLUCOSE (AUTOMATED) 2019-09-14 [facility] ity of 22:25:00 [facility] POCT GLUCOSE (AUTOMATED) 2019-09-14 [facility] ity of 17:45:00 [facility] XR CHEST 1 VW 2019-09-14 [facility] of 13:58:44 [facility] POCT GLUCOSE (AUTOMATED) 2019-09-14 [facility] ity of 13:29:00 [facility] MAGNESIUM 2019-09-14 [facility] of 09:47:00 [facility] BASIC METABOLIC PANEL (NA, K, CL, 2019-09-14 [facility] of CO2, GLUCOSE, BUN, CREATININE, CA) 09:47:00 [facility] EXTRA TUBE LT. GREEN 2019-09-14 [facility] of 09:47:00 [facility] POCT GLUCOSE (AUTOMATED) 2019-09-14 [facility] ity of 08:10:00 [facility] POCT GLUCOSE (AUTOMATED) 2019-09-14 [facility] ity of 02:18:00 [facility] POCT GLUCOSE (AUTOMATED) 2019-09-13 [facility] ity of 23:04:00 [facility] POCT GLUCOSE (AUTOMATED) 2019-09-13 [facility] ity of 17:43:00 [facility] POCT GLUCOSE (AUTOMATED) 2019-09-13 [facility] ity of 13:11:00 [facility] SPUTUM CULTURE 2019-09-13 [facility] of 12:07:00 [facility] MAGNESIUM 2019-09-13 [facility] of 09:51:00 [facility] BASIC METABOLIC PANEL (NA, K, CL, 2019-09-13 Albustami, Aurea r [facility] of CO2, GLUCOSE, BUN, CREATININE, CA) 09:51:00 [facility] CBC WITH DIFFERENTIAL 2019-09-13 [facility] of 09:51:00 [facility] POCT GLUCOSE (AUTOMATED) 2019-09-13 Abu Ather, Univers ity of 02:18:00 [facility] MAGNESIUM 2019-09-13 [facility] of 00:05:00 [facility] TROPONIN I 2019-09-13 [facility] of 00:05:00 [facility] PROCALCITONIN 2019-09-13 [facility] of 00:05:00 [facility] POCT GLUCOSE (AUTOMATED) 2019-09-12 Abu Ather, Univers ity of 22:24:00 [facility] POCT GLUCOSE (AUTOMATED) 2019-09-12 Sang Leal ity of 19:31:00 [facility] ACTIVATED PARTIAL THRMPLAS CARLTON 2019-09-12 Sang Leal U niversity of 18:05:00 [facility] EKG-12 LEAD 2019-09-12 Singer Sangshlomo Padron of 16:53:02 [facility] BLOOD CULTURE SCREEN 2019-09-12 Singer [facility] of 16:25:00 [facility] LACTIC ACID WHOLE BLOOD 2019-09-12 Sang Leali ty of 16:11:00 [facility] BLOOD CULTURE SCREEN 2019-09-12 Singer [facility] of 16:10:00 [facility] PROTHROMBIN TIME / INR 2019-09-12 Sang Lealit y of 15:45:00 [facility] CBC WITH DIFFERENTIAL 2019-09-12 Sang Leal of 15:39:00 [facility] XR CHEST 1 VW 2019-09-12 Singer Sang [place] of 15:34:44 [facility] POCT GLUCOSE (AUTOMATED) 2019-09-12 Sang Leal ity of 15:24:00 [facility] LIPASE 2019-09-12 Singer Sang [place] of 15:21:00 [facility] MAGNESIUM 2019-09-12 Singer [facility] of 15:21:00 [facility] TROPONIN I 2019-09-12 Singer [facility] of 15:21:00 [facility] COMP. METABOLIC PANEL (38479) 2019-09-12 Sang Leal iversity of 15:21:00 [facility] N-TERMINAL PRO-BNP 2019-09-12 Singer [facility] of 15:21:00 [facility] EKG-12 LEAD 2019-09-12 Singer [facility] of 15:17:38 [facility] EMERGENCY SERVICES AGREEMENTS AND 2019-09-12 [facility] University of AUTHORIZATIONS 06:01:00 Unassigned, No [facility] POCT GLUCOSE (AUTOMATED) 2019-09-07 Alnas, Majd Univers ity of 18:10:00 [facility] POCT GLUCOSE (AUTOMATED) 2019-09-07 Alnas, Majd Univers ity of 14:24:00 [facility] POCT GLUCOSE (AUTOMATED) 2019-09-07 Alnas, Majd Univers ity of 02:48:00 [facility] POCT GLUCOSE (AUTOMATED) 2019-09-06 Alnas, Majd Univers ity of 23:24:00 [facility] POCT GLUCOSE (AUTOMATED) 2019-09-06 Alnas, Majd Univers ity of 18:22:00 [facility] POCT GLUCOSE (AUTOMATED) 2019-09-06 Alnas, Majd Univers ity of 13:58:00 [facility] PHOSPHORUS 2019-09-06 [facility] of 07:01:00 [facility] BASIC METABOLIC PANEL (NA, K, CL, 2019-09-06 [facility] of CO2, GLUCOSE, BUN, CREATININE, CA) 07:01:00 [facility] CBC WITH DIFFERENTIAL 2019-09-06 [facility] of 07:01:00 [facility] POCT GLUCOSE (AUTOMATED) 2019-09-06 Alnas, Majd Univers ity of 01:21:00 [facility] POCT GLUCOSE (AUTOMATED) 2019-09-05 Alnas, Majd Univers ity of 23:00:00 [facility] POCT GLUCOSE (AUTOMATED) 2019-09-05 Alnas, Majd Univers ity of 18:39:00 [facility] POCT GLUCOSE (AUTOMATED) 2019-09-05 Alnas, Majd Univers ity of 13:46:00 [facility] XR CHEST 1 VW 2019-09-05 Abu Atherah, University of 11:35:00 Emran [facility] PHOSPHORUS 2019-09-05 [facility] [place] of 09:46:00 [facility] MAGNESIUM 2019-09-05 [facility] [place] of 09:46:00 [facility] BASIC METABOLIC PANEL (NA, K, CL, 2019-09-05 [facility] of CO2, GLUCOSE, BUN, CREATININE, CA) 09:46:00 [facility] CBC WITH DIFFERENTIAL 2019-09-05 [facility] of 09:46:00 [facility] POCT GLUCOSE (AUTOMATED) 2019-09-05 Mario Lewis [facility] ity of 05:57:00 [facility] POCT GLUCOSE (AUTOMATED) 2019-09-05 Gris, Radheshyam Unive rsity of 03:18:00 [facility] POCT GLUCOSE (AUTOMATED) 2019-09-05 Gris, Radheshyam Unive rsity of 02:54:00 [facility] POCT GLUCOSE (AUTOMATED) 2019-09-04 Gris, Radheshyam Unive rsity of 22:13:00 [facility] POCT GLUCOSE (AUTOMATED) 2019-09-04 Gris, Radheshyam Unive rsity of 17:58:00 [facility] POCT GLUCOSE (AUTOMATED) 2019-09-04 Gris, Radheshyam Unive rsity of 14:17:00 [facility] IONIZED CALCIUM 2019-09-04 Smith Giron [place] of 12:48:00 [facility] EKG-12 LEAD 2019-09-04 Elmo [facility] 11:31:27 [facility] XR CHEST 1 VW 2019-09-04 [place] [facility] 11:20:00 [facility] POCT GLUCOSE (AUTOMATED) 2019-09-04 Gris, Radheshyam Unive rsity of 10:48:00 [facility] MAGNESIUM 2019-09-04 Elmo, [facility] 10:45:00 [facility] BASIC METABOLIC PANEL (NA, K, CL, 2019-09-04 [place], [facility] CO2, GLUCOSE, BUN, CREATININE, CA) 10:45:00 [facility] CBC WITH DIFFERENTIAL 2019-09-04 [place], [facility] 10:45:00 [facility] POCT GLUCOSE (AUTOMATED) 2019-09-04 Gris, Radheshyam Unive rsity of 09:08:00 [facility] POCT GLUCOSE (AUTOMATED) 2019-09-04 Gris, Radheshyam Unive rsity of 05:33:00 [facility] POCT GLUCOSE (AUTOMATED) 2019-09-04 Gris, Radheshyam Unive rsity of 03:33:00 [facility] POCT GLUCOSE (AUTOMATED) 2019-09-04 Gris, Radheshyam Unive rsity of 01:47:00 [facility] POCT GLUCOSE (AUTOMATED) 2019-09-04 Gris, Radheshyam Unive rsity of 01:29:00 [facility] POCT GLUCOSE (AUTOMATED) 2019-09-03 Gris, Radheshyam Unive rsity of 23:26:00 [facility] XR CHEST 1 VW 2019-09-03 Elmo, [facility] of 22:20:00 [facility] POCT GLUCOSE (AUTOMATED) 2019-09-03 Gris, Radheshyam Unive rsity of 22:05:00 [facility] POCT GLUCOSE (AUTOMATED) 2019-09-03 Gris, Radheshyam Unive rsity of 17:27:00 [facility] POCT GLUCOSE (AUTOMATED) 2019-09-03 Gris, Radheshyam Unive rsity of 14:41:00 [facility] XR CHEST 1 VW 2019-09-03 [facility] 11:25:00 [facility] EKG-12 LEAD 2019-09-03 Elmo, [facility] 11:12:03 [facility] MAGNESIUM 2019-09-03 [facility] of 09:41:00 [facility] BASIC METABOLIC PANEL (NA, K, CL, 2019-09-03 [facility] of CO2, GLUCOSE, BUN, CREATININE, CA) 09:41:00 [facility] CBC WITH DIFFERENTIAL 2019-09-03 [facility] 09:40:00 [facility] POCT GLUCOSE (AUTOMATED) 2019-09-03 Gris, Radheshyam Unive rsity of 09:04:00 [facility] POCT GLUCOSE (AUTOMATED) 2019-09-03 Gris, Radheshyam Unive rsity of 06:01:00 [facility] POCT GLUCOSE (AUTOMATED) 2019-09-03 Susana Landryam Unive rsity of 01:24:00 [facility] POCT GLUCOSE (AUTOMATED) 2019-09-02 Gris, Radhumzaam Unive rsity of 22:05:00 [facility] POCT GLUCOSE (AUTOMATED) 2019-09-02 Gris, Radluigihyam Unive rsity of 18:41:00 [facility] POCT GLUCOSE (AUTOMATED) 2019-09-02 Susana Landryam Unive rsity of 13:45:00 [facility] XR CHEST 1 VW 2019-09-02 [facility] of 12:20:00 [facility] POCT GLUCOSE (AUTOMATED) 2019-09-02 Megan Landry Unive rsity of 10:14:00 [facility] PHOSPHORUS 2019-09-02 [facility] [place] of 07:23:00 [facility] MAGNESIUM 2019-09-02 [facility] of 07:23:00 [facility] HEPATIC FUNCTION PANEL (76481) 2019-09-02 Mario Lewis niversity of (ALB,T.PRO,BILI 07:23:00 [facility],BU/BC,ALT,AST,[facility] BASIC METABOLIC PANEL (NA, K, CL, 2019-09-02 [facility] [place] of CO2, GLUCOSE, BUN, CREATININE, CA) 07:23:00 [facility] PROFILE / HEMOGRAM 2019-09-02 OkMario monroy [place] of 07:23:00 [facility] ABG+COOX+NA+K+GLU+CA2+ 2019-09-02 [facility] y of 07:22:00 [facility] POCT GLUCOSE (AUTOMATED) 2019-09-02 Megan Landrye rsity of 06:27:00 [facility] POCT GLUCOSE (AUTOMATED) 2019-09-02 Megan Landry Unive rsity of 05:03:00 [facility] AC PANEL 20 + LACTIC ACID 2019-09-02 Elmo, [employer] Univ sity of 03:02:00 [facility] POCT GLUCOSE (AUTOMATED) 2019-09-02 Megan Landry Unive rsity of 01:18:00 [facility] POCT GLUCOSE (AUTOMATED) 2019-09-01 [facility] of 23:54:00 [facility] PHOSPHORUS 2019-09-01 Elmo, [facility] of 23:32:00 [facility] MAGNESIUM 2019-09-01 [place], [facility] of 23:32:00 [facility] BASIC METABOLIC PANEL (NA, K, CL, 2019-09-01 [place], [facility] of CO2, GLUCOSE, BUN, CREATININE, CA) 23:32:00 [facility] ACTIVATED PARTIAL THRMPLAS CARLTON 2019-09-01 Elmo, uab U niversity of 23:32:00 [facility] ABG+COOX+NA+K+GLU+CA2+ 2019-09-01 [facility] y of 23:31:00 [facility] MRSA / MSSA SCREEN BY PCR, BRITNEY 2019-09-01 [facility] of 23:12:00 [facility] PREPARE PACKED RBC 2019-09-01 Elmo, [facility] of 20:58:25 [facility] PROTHROMBIN TIME / INR 2019-09-01 [place], [facility] y of 20:47:00 [facility] ACTIVATED PARTIAL THRMPLAS CARLTON 2019-09-01 [place], [facility] U niversity of 20:47:00 [facility] AC PANEL 20 + LACTIC ACID 2019-09-01 [place], [facility] sity of 20:47:00 [facility] TRANSFUSE PACKED RBC 2019-09-01 Elmo, [facility] of 20:35:41 [facility] POCT GLUCOSE (AUTOMATED) 2019-09-01 [facility] rsity of 20:32:00 [facility] EKG-12 LEAD 2019-09-01 [place], [facility] of 20:01:09 [facility] XR CHEST 1 VW 2019-09-01 [facility] of 19:41:56 [facility] PHOSPHORUS 2019-09-01 Elmo, [facility] of 19:38:00 [facility] MAGNESIUM 2019-09-01 Elmo, [facility] of 19:38:00 [facility] BASIC METABOLIC PANEL (NA, K, CL, 2019-09-01 [facility] of CO2, GLUCOSE, BUN, CREATININE, CA) 19:38:00 [facility] CBC WITH DIFFERENTIAL 2019-09-01 [facility] of 19:38:00 [facility] ABG+COOX+NA+K+GLU+CA2+ 2019-09-01 [facility] y of 19:30:00 [facility] ISTAT ACUTE CARE ARTERIAL 2019-09-01 Gris, [facility] ersity of 17:59:00 [facility] POCT ACT HIGH RANGE 2019-09-01 Gris, [facility] of 17:56:00 [facility] TRANSFUSE PACKED RBC 2019-09-01 [facility], [facility] y of 17:32:38 [facility] ACUTE CARE ARTERIAL 2019-09-01 Gris, [facility] ersity of 17:04:00 [facility] POCT ACT HIGH RANGE 2019-09-01 [facility], [facility] of 17:01:00 [facility] HEMOGLOBIN 2019-09-01 Domingo, [facility] of 16:58:00 [facility] HEMATOCRIT 2019-09-01 Domingo, [facility] of 16:58:00 [facility] PLATELET COUNT 2019-09-01 Domingo, [facility] of 16:58:00 [facility] PROTHROMBIN TIME / INR 2019-09-01 Domingo, [facility] of 16:58:00 [facility] ACTIVATED PARTIAL THRMPLAS CARLTON 2019-09-01 Domingo, [facility] of 16:58:00 [facility] FIBRINOGEN 2019-09-01 Domingo, [facility] of 16:58:00 [facility] ISTAT ACUTE CARE ARTERIAL 2019-09-01 Gris, [facility] ersity of 16:38:00 [facility] POCT ACT HIGH RANGE 2019-09-01 Gris, [facility] of 16:35:00 [facility] ISTAT ACUTE CARE ARTERIAL 2019-09-01 Gris, [facility] ersity of 16:07:00 [facility] POCT ACT HIGH RANGE 2019-09-01 Gris, [facility] of 16:05:00 [facility] ACUTE CARE ARTERIAL 2019-09-01 Gris, [facility] ersity of 15:40:00 [facility] POCT ACT HIGH RANGE 2019-09-01 [facility], [facility] of 15:21:00 [facility] TRANSFUSE PACKED RBC 2019-09-01 [facility] y of 15:15:20 [facility] TRANSFUSE PACKED RBC 2019-09-01 [facility] y of 15:15:01 [facility] POCT ACT HIGH RANGE 2019-09-01 [facility], [facility] of 15:10:00 [facility] ISTAT ACUTE CARE ARTERIAL 2019-09-01 [facility], [facility] ersity of 15:03:00 [facility] POCT ACT HIGH RANGE 2019-09-01 [facility], [facility] of 15:00:00 [facility] PREPARE PACKED RBC 2019-09-01 [facility] [place] of 14:20:50 [facility] TRANSFUSE PACKED RBC 2019-09-01 [facility] y of 14:06:15 [facility] ACUTE CARE ARTERIAL 2019-09-01 [facility], [facility] ersity of 13:58:00 [facility] POCT ACT HIGH RANGE 2019-09-01 [facility], [facility] of 13:55:00 [facility] PREPARE PACKED RBC 2019-09-01 [place] [facility] of 12:50:33 [facility] CORONARY ARTERY BYPASS GRAFT 2019-09-01 [place], [facility] versity of 12:35:00 [facility] EKG-12 LEAD 2019-09-01 Elmo [facility] of 11:59:37 [facility] POCT GLUCOSE (AUTOMATED) 2019-09-01 Gris, [facility] of 11:28:00 [facility] POCT GLUCOSE (AUTOMATED) 2019-09-01 Gris, [facility] Unive rsity of 09:35:00 [facility] POCT GLUCOSE (AUTOMATED) 2019-09-01 Gris, [facility] Unive rsity of 05:58:00 [facility] POCT GLUCOSE (AUTOMATED) 2019-09-01 Gris, [facility] Unive rsity of 02:15:00 [facility] POCT GLUCOSE (AUTOMATED) 2019-08-31 Gris, [facility] Unive rsity of 22:11:00 [facility] HB ABO GROUPING 2019-08-31 Elmo, Shsebas [place] of 20:04:00 [facility] POCT GLUCOSE (AUTOMATED) 2019-08-31 Gris, Radheshyam Unive rsity of 17:32:00 [facility] POCT GLUCOSE (AUTOMATED) 2019-08-31 Gris, Radheshyam Unive rsity of 13:38:00 [facility] POCT GLUCOSE (AUTOMATED) 2019-08-31 Gris, Radheshyam Unive rsity of 10:30:00 [facility] CBC WITH DIFFERENTIAL 2019-08-31 Pablo Curiel [facility] ty of 10:24:00 [facility] BASIC METABOLIC PANEL (NA, K, CL, 2019-08-31 Derrick Curiel [facility] of CO2, GLUCOSE, BUN, CREATININE, CA) 10:23:00 [facility] POCT GLUCOSE (AUTOMATED) 2019-08-31 Gris, Radheshyam Unive rsity of 06:15:00 [facility] POCT GLUCOSE (AUTOMATED) 2019-08-31 Gris, Radheshyam Unive rsity of 02:07:00 [facility] POCT GLUCOSE (AUTOMATED) 2019-08-30 Gris, Radheshyam Unive rsity of 21:31:00 [facility] POCT GLUCOSE (AUTOMATED) 2019-08-30 Gris, Radheshyam Unive rsity of 17:45:00 [facility] POCT GLUCOSE (AUTOMATED) 2019-08-30 Gris, Radheshyam Unive rsity of 13:52:00 [facility] POCT GLUCOSE (AUTOMATED) 2019-08-30 Gris, Radheshyam Unive rsity of 11:02:00 [facility] POCT GLUCOSE (AUTOMATED) 2019-08-30 Gris, Radheshyam Unive rsity of 05:36:00 [facility] POCT GLUCOSE (AUTOMATED) 2019-08-30 Gris, Radheshyam Unive rsity of 03:26:00 [facility] POCT GLUCOSE (AUTOMATED) 2019-08-29 Gris, Radheshyam Unive rsity of 17:14:00 [facility] POCT GLUCOSE (AUTOMATED) 2019-08-29 Gris, Radheshyam Unive rsity of 13:44:00 [facility] POCT GLUCOSE (AUTOMATED) 2019-08-29 Gris, Radheshyam Unive rsity of 09:52:00 [facility] COMP. METABOLIC PANEL ([id number]) 2019-08-29 Jadiel Kemp iversity of 09:43:00 [facility] POCT GLUCOSE (AUTOMATED) 2019-08-29 Gris, Radheshyam Unive rsity of 06:19:00 [facility] POCT GLUCOSE (AUTOMATED) 2019-08-29 Gris, Radheshyam Unive rsity of 03:44:00 [facility] US ABDOMEN LIMITED WITH DOPPLER 2019-08-28 Jadiel Kemp [place] of 22:49:00 [facility] POCT GLUCOSE (AUTOMATED) 2019-08-28 Gris, Radheshyam Unive rsity of 21:32:00 [facility] POCT GLUCOSE (AUTOMATED) 2019-08-28 Gris, Radheshyam Unive rsity of 17:20:00 [facility] MAGNESIUM 2019-08-28 [facility] of 14:28:00 [facility] BASIC METABOLIC PANEL (NA, K, CL, 2019-08-28 [facility] of CO2, GLUCOSE, BUN, CREATININE, CA) 14:28:00 [facility] CBC WITH DIFFERENTIAL 2019-08-28 [facility] of 14:28:00 [facility] POCT GLUCOSE (AUTOMATED) 2019-08-28 Gris, Radheshyam Unive rsity of 13:25:00 [facility] POCT GLUCOSE (AUTOMATED) 2019-08-28 Gris, Radheshyam Unive rsity of 07:19:00 [facility] POCT GLUCOSE (AUTOMATED) 2019-08-28 Gris, Radheshyam Unive rsity of 03:00:00 [facility] POCT GLUCOSE (AUTOMATED) 2019-08-27 Gris, Radheshyam Unive rsity of 21:45:00 [facility] POCT GLUCOSE (AUTOMATED) 2019-08-27 Gris, Radheshyam Unive rsity of 17:51:00 [facility] CT THORAX WO CONTRAST 2019-08-27 [facility] of 16:53:12 [facility] POCT GLUCOSE (AUTOMATED) 2019-08-27 Gris, Radheshyam Unive rsity of 13:54:00 [facility] POCT GLUCOSE (AUTOMATED) 2019-08-27 Gris, Radheshyam Unive rsity of 10:34:00 [facility] [facility] POCT GLUCOSE (AUTOMATED) 2019-08-27 Gris, Radheshyam Unive rsity of 05:56:00 [facility] POCT GLUCOSE (AUTOMATED) 2019-08-27 Gris, Radheshyam Unive rsity of 04:11:00 [facility] POCT GLUCOSE (AUTOMATED) 2019-08-27 Gris, Radheshyam Unive rsity of 01:25:00 [facility] POCT GLUCOSE (AUTOMATED) 2019-08-26 Gris, Radheshyam Unive rsity of 23:42:00 [facility] POCT GLUCOSE (AUTOMATED) 2019-08-26 Gris, Radheshyam Unive rsity of 22:59:00 [facility] ACUTE CARE ARTERIAL BLOOD GAS 2019-08-26 Jadiel Kemp iversity of 20:19:00 [facility] BILATERAL VEIN MAPPING BY VASCULAR 2019-08-26 Jadiel Kemp [place] of LAB 19:12:01 [facility] POCT GLUCOSE (AUTOMATED) 2019-08-26 Gris, Radheshyam Unive rsity of 18:06:00 [facility] POCT GLUCOSE (AUTOMATED) 2019-08-26 Gris, Radheshyam Unive rsity of 15:29:00 [facility] COLONOSCOPY (ENDO) 2019-08-26 Grzegorz Crum [facility] o f 14:06:55 [facility] SURGICAL PATHOLOGY EXAM 2019-08-26 Marlo Osman [facility] ity of 13:44:00 [facility] COLONOSCOPY 2019-08-26 Marlo Osman [place] of 13:20:00 [facility] ESOPHAGOGASTRODUODENOSCOPY 2019-08-26 Marlo Osman [facility] ersity of 13:20:00 [facility] EGD (ENDO) 2019-08-26 Grzegorz Crum [place] of 12:37:08 [facility] POCT GLUCOSE (AUTOMATED) 2019-08-26 Gris, Radheshyam Unive rsity of 11:51:00 [facility] POCT GLUCOSE (AUTOMATED) 2019-08-25 Gris, Radheshyam Unive rsity of 21:37:00 [facility] POCT GLUCOSE (AUTOMATED) 2019-08-25 Gris, Radheshyam Unive rsity of 20:44:00 [facility] POCT GLUCOSE (AUTOMATED) 2019-08-25 Gris, Radheshyam Unive rsity of 20:43:00 [facility] POCT GLUCOSE (AUTOMATED) 2019-08-25 Gris, Radheshyam Unive rsity of 20:11:00 [facility] POCT GLUCOSE (AUTOMATED) 2019-08-25 Gris, Radheshyam Unive rsity of 19:43:00 [facility] POCT GLUCOSE (AUTOMATED) 2019-08-25 Gris, Radheshyam Unive rsity of 18:58:00 [facility] POCT GLUCOSE (AUTOMATED) 2019-08-25 Gris, Radheshyam Unive rsity of 18:36:00 [facility] POCT GLUCOSE (AUTOMATED) 2019-08-25 Gris, Radheshyam Unive rsity of 18:17:00 [facility] POCT GLUCOSE (AUTOMATED) 2019-08-25 Gris, Radheshyam Unive rsity of 18:10:00 [facility] POCT GLUCOSE (AUTOMATED) 2019-08-25 Gris, Radheshyam Unive rsity of 18:02:00 [facility] POCT GLUCOSE (AUTOMATED) 2019-08-25 Gris, Radheshyam Unive rsity of 17:56:00 [facility] BASIC METABOLIC PANEL (NA, K, CL, 2019-08-25 [facility] of CO2, GLUCOSE, BUN, CREATININE, CA) 10:41:00 [facility] CBC WITH DIFFERENTIAL 2019-08-25 [facility] of 10:41:00 [facility] XR KUB 2019-08-25 [facility] of 04:48:36 [facility] POCT GLUCOSE (AUTOMATED) 2019-08-25 Harris Garza [facility] ity of 02:02:00 [facility] POCT GLUCOSE (AUTOMATED) 2019-08-24 Harris Garza Univers ity of 22:18:00 [facility] POCT GLUCOSE (AUTOMATED) 2019-08-24 Harris Garza Univers ity of 18:17:00 [facility] POCT GLUCOSE (AUTOMATED) 2019-08-24 Kayla, Harris [facility] ity of 13:57:00 [facility] BASIC METABOLIC PANEL (NA, K, CL, 2019-08-24 [facility] of CO2, GLUCOSE, BUN, CREATININE, CA) 12:02:00 [facility] CBC WITH DIFFERENTIAL 2019-08-24 [facility] of 12:02:00 [facility] POCT GLUCOSE (AUTOMATED) 2019-08-24 Davidah, Harris Univers ity of 10:27:00 [facility] POCT GLUCOSE (AUTOMATED) 2019-08-24 Davidah, Harris Univers ity of 05:43:00 [facility] POCT GLUCOSE (AUTOMATED) 2019-08-24 Davidah, Harris [facility] ity of 01:53:00 [facility] POCT GLUCOSE (AUTOMATED) 2019-08-23 Kayla, Harris [facility] ity of 23:06:00 [facility] IRON 2019-08-23 [facility] of 21:20:00 [facility] TOTAL IRON BINDING CAPACITY 2019-08-23 [facility] versity of 21:20:00 [facility] POCT GLUCOSE (AUTOMATED) 2019-08-23 Kayla, Harris [facility] ity of 18:03:00 [facility] POCT GLUCOSE (AUTOMATED) 2019-08-23 Kayla, Harris [facility] ity of 14:22:00 [facility] POCT GLUCOSE (AUTOMATED) 2019-08-23 Kayla, Harris [facility] ity of 11:49:00 [facility] MAGNESIUM 2019-08-23 [facility] of 10:25:00 [facility] BASIC METABOLIC PANEL (NA, K, CL, 2019-08-23 [facility] of CO2, GLUCOSE, BUN, CREATININE, CA) 10:25:00 [facility] CBC WITH DIFFERENTIAL 2019-08-23 [facility] of 10:25:00 [facility] N-TERMINAL PRO-BNP 2019-08-23 Brandon [facility] of 10:25:00 [facility] POCT GLUCOSE (AUTOMATED) 2019-08-23 Kayla, Harris [facility] ity of 06:21:00 [facility] POCT GLUCOSE (AUTOMATED) 2019-08-23 Abdullah, [facility] ity of 01:52:00 [facility] POCT GLUCOSE (AUTOMATED) 2019-08-22 Harris Garza Univers ity of 23:30:00 [facility] POCT GLUCOSE (AUTOMATED) 2019-08-22 Harris Garza [facility] ity of 17:42:00 [facility] XR CHEST 1 VW 2019-08-22 [facility] of 10:25:58 [facility] POCT GLUCOSE (AUTOMATED) 2019-08-22 Harris Garza [facility] ity of 09:59:00 [facility] CBC WITH DIFFERENTIAL 2019-08-22 [facility] of 08:01:00 [facility] MAGNESIUM 2019-08-22 [facility] of 08:00:00 [facility] BASIC METABOLIC PANEL (NA, K, CL, 2019-08-22 [facility] of CO2, GLUCOSE, BUN, CREATININE, CA) 08:00:00 [facility] N-TERMINAL PRO-BNP 2019-08-22 Brandon [facility] of 08:00:00 [facility] POCT GLUCOSE (AUTOMATED) 2019-08-22 [facility] ity of 06:01:00 [facility] POCT GLUCOSE (AUTOMATED) 2019-08-22 Harris Gar[facility] ity of 03:04:00 [facility] CATH PROCEDURE LOG 2019-08-22 [facility] of 00:10:24 Unassigned, No [facility] POCT GLUCOSE (AUTOMATED) 2019-08-21 Harris Garza [facility] ity of 22:39:00 [facility] POCT GLUCOSE (AUTOMATED) 2019-08-21 Harris Garza [facility] ity of 18:30:00 [facility] POCT GLUCOSE (AUTOMATED) 2019-08-21 Harris Gar[facility] ity of 13:53:00 [facility] POCT GLUCOSE (AUTOMATED) 2019-08-21 Harris Garza [facility] ity of 10:01:00 [facility] MRSA / MSSA SCREEN BY BRITNEY MTZ 2019-08-21 [facility] of 08:04:00 [facility] BASIC METABOLIC PANEL (NA, K, CL, 2019-08-21 Faustino Mason [place] of CO2, GLUCOSE, BUN, CREATININE, CA) 08:03:00 [facility] CBC WITH DIFFERENTIAL 2019-08-21 Marlon [facility] of 08:03:00 [facility] N-TERMINAL PRO-BNP 2019-08-21 Marlon [facility] of 08:03:00 [facility] POCT GLUCOSE (AUTOMATED) 2019-08-21 Harris Garza ity of 05:11:00 [facility] POCT GLUCOSE (AUTOMATED) 2019-08-21 Harrsi Garza Univers ity of 03:22:00 [facility] EKG-12 LEAD 2019-08-21 [facility] of 02:36:48 [facility] EKG-12 LEAD 2019-08-21 [facility] of 02:36:30 [facility] POCT GLUCOSE (AUTOMATED) 2019-08-20 Harris Garza ity of 22:21:00 [facility] POCT GLUCOSE (AUTOMATED) 2019-08-20 Harris Garza [facility] ity of 17:35:00 [facility] POCT GLUCOSE (AUTOMATED) 2019-08-20 Harris Garza ity of 13:40:00 [facility] URIC ACID 2019-08-20 Marlon [facility] of 09:36:00 [facility] TROPONIN I 2019-08-20 Marlon [facility] of 09:36:00 [facility] BASIC METABOLIC PANEL (NA, K, CL, 2019-08-20 Marlon [facility] of CO2, GLUCOSE, BUN, CREATININE, CA) 09:36:00 [facility] CBC WITH DIFFERENTIAL 2019-08-20 [facility]:36[facility]00 [facility] N-TERMINAL PRO-BNP 2019-08-20 Marlon [facility] of 09:36:00 [facility] POCT GLUCOSE (AUTOMATED) 2019-08-20 Harris Garza ity of 05:32:00 [facility] POCT GLUCOSE (AUTOMATED) 2019-08-20 Harris Garza ity of 02:20:00 [facility] VITAMIN B12, LEVEL 2019-08-19 Harris Garza of 22:59:00 [facility] FOLATE 2019-08-19 Harris Garza [place] of 22:59:00 [facility] TROPONIN I 2019-08-19 Anika Cisneros [place] of 22:59:00 [facility] IRON PANEL 2019-08-19 David Harris [place] of 22:59:00 [facility] VITAMIN D, 25-OH 2019-08-19 Kayla, [facility] of 22:59:00 [facility] POCT GLUCOSE (AUTOMATED) 2019-08-19 DavidHarris [facility] ity of 21:22:00 [facility] POCT GLUCOSE (AUTOMATED) 2019-08-19 David Harris [facility] ity of 16:58:00 [facility] ECHO ROUTINE W/DOPPLER COLOR 2019-08-19 Anika Cisneros [facility] versity of 14:58:29 [facility] POCT GLUCOSE (AUTOMATED) 2019-08-19 DavidHarris [facility] ity of 13:26:00 [facility] POCT GLUCOSE (AUTOMATED) 2019-08-19 DavidHarris [facility] ity of 09:58:00 [facility] PHOSPHORUS 2019-08-19 Marlon [facility] of 08:59:00 [facility] URIC ACID 2019-08-19 Marlon, [facility] of 08:59:00 [facility] MAGNESIUM 2019-08-19 Marlon, [facility] of 08:59:00 [facility] FERRITIN SERUM 2019-08-19 Harris Garza [place] of 08:59:00 [facility] TROPONIN I 2019-08-19 Marlon, [facility] of 08:59:00 [facility] BASIC METABOLIC PANEL (NA, K, CL, 2019-08-19 [facility], [facility] of CO2, GLUCOSE, BUN, CREATININE, CA) 08:59:00 [facility] CBC WITH DIFFERENTIAL 2019-08-19 Marlon [facility] of 08:59:00 [facility] N-TERMINAL PRO-BNP 2019-08-19 Marlon, [facility] of 08:59:00 [facility] POCT GLUCOSE (AUTOMATED) 2019-08-19 Harris Garza [facility] ity of 04:38:00 [facility] URIC ACID 2019-08-19 Marlon, [facility] of 02:15:00 [facility] LIPID PANEL (92707)(TOTAL 2019-08-19 Anika Cisneros [facility] sity of CHOLESTEROL, TRIGLYCERIDES, HDL) 02:15:00 [facility] TROPONIN I 2019-08-19 [facility] of 02:14:00 [facility] POCT GLUCOSE (AUTOMATED) 2019-08-19 DavidsemajHarris [facility] ity of 01:10:00 [facility] POCT GLUCOSE (AUTOMATED) 2019-08-18 [facility] ity of 23:31:00 [facility] XR CHEST 2 VW 2019-08-18 pelon [facility] of 20:56:25 [facility] LIPASE 2019-08-18 pelon, [facility] of 20:42:00 [facility] TROPONIN I 2019-08-18 [facility], [facility] of 20:42:00 [facility] THYROID STIMULATING HORMONE 2019-08-18 [facility] ersity of 20:42:00 [facility] COMP. METABOLIC PANEL (04144) 2019-08-18 [facility] of 20:42:00 [facility] LIPID PANEL (80522)(TOTAL 2019-08-18 [facility] sity of CHOLESTEROL, TRIGLYCERIDES, HDL) 20:42:00 [facility] CBC WITH DIFFERENTIAL 2019-08-18 [facility] of 20:42:00 [facility] GLYCOSYLATED HEMOGLOBIN (A1C) 2019-08-18 Anika Cisneros iversity of 20:42:00 [facility] PROTHROMBIN TIME / INR 2019-08-18 [facility] 20:42:00 [facility] ACTIVATED PARTIAL THRMPLAS CARLTON 2019-08-18 [facility] of 20:42:00 [facility] N-TERMINAL PRO-BNP 2019-08-18 Shanae Barney [place] of 20:42:00 [facility] EKG-12 LEAD 2019-08-18 [facility] of 20:32:11 [facility] EKG-12 LEAD 2019-08-18 [facility] of 20:31:05 [facility] NOTICE OF PRIVACY PRACTICES 2019-08-18 [facility] ersity of 20:23:50 Unassigned, No [facility] CONSENT/REFUSAL FOR DIAGNOSIS AND 2019-08-18 [facility] of TREATMENT 20:23:39 Unassigned, No [facility] ASSIGNMENT OF BENEFITS 2019-08-18 Doctor Universit y of 20:23:13 Unassigned, No [facility] Name Branch HOSPITAL ADMISSION 2019-08-18 Doctor [place] of 06:01:00 Unassigned, No [facility] History of Cyst excision Univers ity [facility] History of Debridement Universit y [facility] History of Hand Surgery Universi ty [facility] History of Knee arthroscopy Univ ersity [facility] History of University of Esophagogastroduodenoscopy [place] [facility] History of Colonoscopy Universit y [facility] History of Surgical removal of U niversity of foreign body [place] [facility] History of CABG University [facility] Encounters Start End Encounter Admission Attending Care Care Encounter Source Date/Time Date/Time Type Type Clinicians Facility Department ID 2021-05-14 Inpatient [facility] [id number] Univers 12:00:24 VONDA ity [facility] 2021-05-12 Emergency [facility] [id number] Univers 23:59[facility]11 Emergency [facility] [id number] Univers 17:53:[facility]-11 Emergency [facility] [id number] Univers 11:48:21 [facility] 2019-08-18 Inpatient X [facility] [id number] Univers 14:20:52 RADHESHYAM [facility] 2021-04-12 2021-04-12 Refill [facility] 1.2.840.114 [id number] Univers 00:00:00 00:00:00 Derrick PRIMARY [id number] it y [place] [phone] De dical [address] 2020-12-27 2020-12-27 Refill [facility] 1.2.840.114 [id number] Univers 00:00:00 00:00:00 Derrick PRIMARY [id number] it y [place] [phone] De dical [address] 2020-12-27 2020-12-27 Refill [facility] 1.2.840.114 [id number] 00:00:00 00:00:00 Derrick PRIMARY [id number] CARE 4.2.7.2.686 PAVILLION [id number] 389 2020-12-16 2020-12-16 Orders Doctor ALPHONSE 1.2.840.114 [id number] Univers 00:00:00 00:00:00 Only Unassigned, LINK 350.1.13.10 ity of [place] [facility] 4.2.7.2.686 You as [phone] [facility] 009 Branch 2020-12-16 2020-12-16 Orders Doctor ALPHONSE 1.2.840.114 [id number] 00:00:00 00:00:00 Only Unassigned, LINK 350.1.13.10 [place] [facility] 4.2.7.2.686 [id number] 009 2020-11-30 2020-11-30 Patient Jatin Douglas 1.2.840.114 [id number] Univers 00:00:00 00:00:00 Outreach Hugh Tejeda Mcnally 350.1.13.10 ity [place] [id number] [facility] 403 [address] 2020-11-30 2020-11-30 Patient Jatin Douglas 1.2.840.114 [id number] 00:00:00 00:00:00 Outreach Hugh Whitey 350.1.13.10 [place] 4.2.7.2.686 [id number] 403 2020-11-22 2020-11-22 ALPHONSE Lopez 1.2.840.114 [id number] Univers 00:00:00 00:00:00 Triage Liane MAZA 350.1.13.10 i ty of HOSPITAL 4.2.7.2.686 You as [phone] [facility] 019 Branch 2020-11-22 2020-11-22 Nurse ALPHONSE Villareal 1.2.840.114 [id number] 00:00:00 00:00:00 Triage Liane A LINK 350.1.13.10 HOSPITAL 4.2.7.2.686 [id number] 019 2020-11-16 2020-11-16 Orders Doctor ALPHONSE 1.2.840.114 [id number] Univers 00:00:00 00:00:00 Only Unassigned, LINK 350.1.13.10 ity of [place] [facility] 4.2.7.2.686 You as [phone] [facility] 009 Branch 2020-11-16 2020-11-16 Orders Doctor CUNHA 1.2.840.114 [id number] 00:00:00 00:00:00 Only Unassigned, LINK 350.1.13.10 [place] [facility] 4.2.7.2.686 [id number] 009 2020-11-11 2020-11-11 Telephone Parks, [facility] 1.2.793.009 [id number] [facility] 00:00:00 00:00:00 Derrick PRIMARY 350.1.13.10 it [place] [phone] De dical [address] [place] 2020-11-11 2020-11-11 Telephone Parks, [facility] 1.2.263.742 [id number] 00:00:00 00:00:00 Derrick PRIMARY 350.1.13.10 CARE 4.2.7.2.686 PAVILLION [id number] 389 2020-11-10 2020-11-10 Transition Jatin Campbell 1.2.840.114 [id number] Univers 00:00:00 00:00:00 of Care Nathalia Mcnally 350.1.13.10 it [place] [id number] [facility] 403 [address] 2020-11-10 2020-11-10 [facility] 1.2.840.114 [id number] Univers 00:00:00 00:00:00 Haris PRIMARY 350.1.13.10 it y of [place] [id number] De dical [address] 2020-11-10 2020-11-10 Transition Jatin Campbell 1.2.840.114 [id number] 00:00:00 00:00:00 of Care Nathalia Mcnally 350.1.13.10 [place] 4.2.7.2.686 [id number] 403 2020-11-10 2020-11-10 [facility] 1.2.840.114 [id number] 82 00:00:00 00:00:00 Haris PRIMARY 350.1.13.10 [place] CARE 4.2.7.2.686 PAVILLION [id number] 389 2020-10-22 2020-11-09 [facility] [place]reci[place]aleVonda stanford 1.2.840.1 [id number] Univers 06:28:00 18:56:00 Encounter Antonio Villay 350.1.13.10 ity of [facility] [place] 4.2.7 .2.686 David [place] [phone] Medical Haris Sullivan [place] 096 Branch 2020-08-02 2020-08-02 Letter Blanca CUNHA 1.2.840.114 [id number] Univers 00:00:00 00:00:00 (Out) , LINK 350.1.13.10 it y of [facility] 4.2.7.2.686 [facility] [id number] [facility] 043 Branch 2020-07-04 2020-07-04 Orders Doctor CUNHA 1.2.840.114 [id number] Univers 00:00:00 00:00:00 Only Unassigned, LINK 350.1.13.10 ity of [place] [facility] 4.2.7.2.686 You [id number] [facility] 009 Branch 2020-05-03 2020-05-03 Emergency [facility] 1.2.840.114 [id number] Univers 14:26:00 16:25:00 Christa Isaac 350.1.13.10 ity of [place] 4.2.7.2.686 [facility] [id number] [facility] 084 Branch 2020-05-03 2020-05-03 Orders Doctor CUNHA 1.2.840.114 [id number] Univers 00:00:00 00:00:00 Only Unassigned, LINK 350.1.13.10 ity of [place] [facility] 4.2.7.2.686 You as [phone] [place] [address] Branch 2020-05-03 2020-05-03 Patient Jatin Douglas 1.2.840.114 [id number] Univers 00:00:00 00:00:00 Outreach Hugh Whitey 350.1.13.10 [place] [id number] [address] 2020-02-05 2020-02-05 Patient Trupti Ahn Jatin 1.2.840.114 [id number] Univers 00:00:00 00:00:00 Outreach E Mcnally 350.1.13.10 i [place] [phone] [address] 2020-01-28 2020-01-28 Patient Trupti Ahn Jatin 1.2.840.114 [id number] Univers 00:00:00 00:00:00 Outreach E Mcnally 350.1.13.10 i [place] [phone] [address] 2020-01-18 2020-01-18 Patient Jatin Douglas 1.2.840.114 [id number] Univers 00:00:00 00:00:00 Outreach Hugh Tejeda Mcnally 350.1.13.10 [place] [id number] [address] 2020-01-08 2020-01-08 Patient Jatin Douglas 1.2.840.114 [id number] Univers 00:00:00 00:00:00 Outreach Hugh Tejeda Mcnally 350.1.13.10 [place] [phone] [address] 2020-01-07 2020-01-07 Patient Trupti Ahn Jatin 1.2.840.114 [id number] Univers 00:00:00 00:00:00 Outreach E Mcnally 350.1.13.10 i [place] [id number] [address] 2019-12-22 2019-12-22 Patient Trupti Ahn 1.2.840.114 [id number] Univers 00:00:00 00:00:00 Outreach E Mcnally 350.1.13.10 i [place] [id number] [address] 2019-12-16 2019-12-16 Patient Trupti Ahn 1.2.840.114 [id number] Univers 00:00:00 00:00:00 Outreach E Mcnally 350.1.13.10 i [place] [id number] [address] 2019-12-11 2019-12-11 Patient Jatin Douglas 1.2.840.114 [id number] Univers 00:00:00 00:00:00 Outreach Hugh W Mcnally 350.1.13.10 [place] [id number] [address] 2019-12-10 2019-12-10 Patient Jatin Douglas 1.2.840.114 [id number] Univers 00:00:00 00:00:00 Outreach Hugh W Mcnally 350.1.13.10 [place] [phone] [address] 2019-12-03 2019-12-03 Patient Jatin Douglas 1.2.840.114 [id number] Univers 00:00:00 00:00:00 Outreach Hugh W Mcnally 350.1.13.10 [place] [phone] [address] 2019-12-02 2019-12-02 Patient Trupti Ahn 1.2.840.114 [id number] Univers 00:00:00 00:00:00 Outreach E Mcnally 350.1.13.10 i ty [place] [id number] [address] 2019-12-01 2019-12-01 Patient Jatin Douglas 1.2.840.114 [id number] Univers 00:00:00 00:00:00 Outreach Hugh W Mcnally 350.1.13.10 [place] [id number] [address] 2019-11-26 2019-11-26 Patient Jatin Douglas 1.2.840.114 [id number] Univers 00:00:00 00:00:00 Outreach Hugh Ileana Whitey 350.1.13.10 [place] [phone] [address] 2019-11-25 2019-11-25 Patient Trupti Ahn 1.2.840.114 [id number] Univers 16:38:53 16:38:57 Outreach E Mcnally 350.1.13.10 i ty [place] [id number] [address] 2019-11-25 2019-11-25 Outpatient [facility] [id number] Univers 12:00:00 12:00:00 [id number] ity of [facility] 2019-11-20 2019-11-20 Patient Trupti Ahn 1.2.840.114 [id number] Univers 00:00:00 00:00:00 Outreach E Mcnally 350.1.13.10 i ty [place] [id number] [address] 2019-11-16 2019-11-16 Orders Doctor ALPHONSE 1.2.840.114 [id number] Univers 00:00:00 00:00:00 Only Unassigned, LINK 350.1.13.10 ity of [place] [facility] 4.2.7.2.686 You as [phone] [address] 2019-11-11 2019-11-11 Patient Jatin Douglas 1.2.840.114 [id number] Univers 00:00:00 00:00:00 Outreach Hugh Whitey 350.1.13.10 [phone] [address] 2019-11-03 2019-11-03 Patient Trupti Ahn 1.2.840.114 [id number] Univers 00:00:00 00:00:00 Outreach E Mcnally 350.1.13.10 [place] [phone] [address] 2019-11-02 2019-11-02 Patient Trupti Ahn 1.2.840.114 [id number] Univers 00:00:00 00:00:00 Outreach E Mcnally 350.1.13.10 [place] [phone] [address] 2019-10-30 2019-10-30 Patient Trupti Ahn 1.2.840.114 [id number] Univers 00:00:00 00:00:00 Outreach E Mcnally 350.1.13.10 [place] [phone] [address] 2019-10-29 2019-10-29 [facility] Devlin, Kaycee 1.2.044.698 [id number] Univers 11:46:00 23:59:00 Encounter Segun Maza 350.1.13.[address] [facility] 4.2.7.2.686 You as [phone] [address] 2019-10-29 2019-10-29 Outpatient R [facility] [id number] -20 Univers 12:30:00 12:30:00 [id number] ity [facility] 2019-10-29 2019-10-29 Outpatient R DEVLIN, [facility] [id number] Univers 12:30:00 12:30:00 SEGUN itvirgilio of [facility] 2019-10-29 2019-10-29 Transition Jatin Navarrete 1.2.840.114 [id number] Univers 00:00:00 00:00:00 of Care Lucia Whitey 350.1.13.10 [place] [phone] [address] 2019-10-26 2019-10-28 [facility] Niurka Aisha [facility] 1.2.840. 114 [id number] Univers 20:13:39 12:05:00 Encounter Faustino Mason 350.1.13.10 [place] [id number] [facility] lizzy [address] [place] 2019-10-28 2019-10-28 Telephone [facility] 1.2.927.924 [id number] Univers 00:00:00 00:00:00 Chellymaximclark Bill[place] 350.1.13.10 [place] Profess[place] [phone] De dical nal 059 [facility] 2019-10-27 2019-10-27 Telephone [facility] 1.2.668.385 [id number] Univers 00:00:00 00:00:00 [facility] 350.1.13.10 i ty of [place] 4.2.7.2.686 You as Professio [phone] De dical nal 044 [facility] One 2019-10-19 2019-10-26 Telemedici [facility] 1.2.840.114 [id number] Univers 10:08:07 17:02:04 ne Visit Mara [place] 350.1.13.10 it[place] Profess[place] [phone] De dical nal 059 [facility] 2019-10-26 2019-10-26 Director Wholesale Shaka, Melissa Lab Main [facility] 1.2.8 40.114 [id number] Univers 14:57:39 15:12:39 Visit Chelly Crossmaximclark Isaac 350.1.13.10 [place] of [place] [phone] De dical nal 353 [facility] 2019-10-26 2019-10-26 Outpatient O [facility] [id number] -20 Univers 15:00:00 15:00:00 MARA [id number] ity o f [facility] 2019-10-26 2019-10-26 Outpatient R [facility] [id number] Univers 11:15:00 11:15:00 MARA ity o f [facility] 2019-10-26 2019-10-26 Orders Doctor ALPHONSE 1.2.840.114 [id number] Univers 00:00:00 00:00:00 Only Unassigned, LINK 350.1.13.10 ity of [place] [facility] 4.2.7.2.686 You as [phone] [facility] [address] 2019-10-19 2019-10-19 Outpatient O TAY, [facility] [id number] -20 Univers 14:40:00 14:40:00 MARA [id number] ity o f [facility] 2019-10-19 2019-10-19 Outpatient O [facility], [facility] [id number] Univers 14:40:00 14:40:00 MARA ity o [facility] 2019-10-19 2019-10-19 [facility] 1.2.123.326 [id number] Univers 00:00:00 00:00:00 Mara Lucianoton 350.1.13.10 [place] [facility] [phone] De dical [facility] 059 [facility] 2019-10-12 2019-10-12 Hospital Renny Ashley 1.2.840.114 [id number] Univers 12:30:00 23:59:00 Encounter Segun Devlin 350.1 .13.10 ity of [facility] 4.2.7.2.686 You as [phone] [facility] [address] 2019-10-12 2019-10-12 Outpatient [facility] [id number] -20 Univers 12:30:00 12:30:00 [id number] ity of [facility] 2019-10-12 2019-10-12 Outpatient [facility] [id number] Univers 12:30:00 12:30:00 RENNY ity of [facility] 2019-09-29 2019-10-01 Emergency Chong Brennan [facility] 1.2.840.1 [id number] Univers 16:30:29 18:09:00 Pritesh Sunshine [facility] 350.1.13.10 it[place] [phone] [facility] [address] (CLC) 2019-09-29 2019-10-01 Outpatient X [facility] [id number] Univers 16:30:29 18:09:00 PRITESH urrutia o [facility] 2019-09-29 2019-09-29 [facility] 1.2.840.114 [id number] Univers 09:00:00 16:29:00 Encounter Marlin 350.1.13.10 ity of [place] 4.2.7.2.686 [facility] [id number] [facility] [address] [place] 2019-09-29 2019-09-29 Outpatient R IGRO BORREGO [facility] [id number] Univers 09:00:00 16:29:00 ity of [facility] 2019-09-29 2019-09-29 Appointmen ELMO [facility] [id number] Univers 15:00:00 15:00:00 t; IGOR BORREGO M.D. Advanced ity of IGOR [facility] Lori Freeman Failure - Physic i [facility] 2019-09-29 2019-09-29 Director Wholesale 1, Adc Lab [facility] 1.2.840.114 [id number] Univers 09:30:09 09:45:09 Visit Igor Borrego 350.1.13.10 ity [facility] 4.2.7.2.686 [facility] [phone] [facility] [address] 2019-09-29 2019-09-29 Outpatient R [facility] [id number] [id number] Univers 09:00:00 09:00:00 [id number] ity of [facility] 2019-09-28 2019-09-28 [facility] Segun Dev[place] 1. 2.840.114 [id number] Univers 12:30:00 23:59:00 Encounter Renny Ashley 350.1.13.10 ity of [facility] 4.2.7.2.686 You as [phone] [facility] [address] 2019-09-28 2019-09-28 Ancillary Room, Maureen-Occup Therapy Tub Luda carias 1.2.840.114 [id number] Univers 16:08:34 16:38:34 Visit Renny Ashley 350.1.13.10 ity of [facility] 4.2.7.2.686 You as [phone] [facility] [address] 2019-09-28 2019-09-28 Outpatient R [facility] [id number] -[id number] Univers 12:30:00 12:30:00 [id number] virgilio [facility] 2019-09-28 2019-09-28 [facility]patient [facility] [id number] Univers 12:30:00 12:30:00 SEGUN virgilio [facility] 2019-09-22 2019-09-22 Ancillary Room, Maureen-Occup Therapy Tub Luda ie 1.2.840.114 [id number] Univers 16:28:15 17:13:15 Visit Segun Devlin 350.1.1 3.10 ity of [facility] 4.2.7.2.686 You as [phone] [facility] [address] 2019-09-21 2019-09-21 [facility] Kaycee [place] 1.2.808.159 [id number] Univers 12:30:00 23:59:00 Encounter Segun Link 350.1.13.10 ity [facility] 4.2.7.2.686 You as [id number] [facility] [address] 2019-09-21 2019-09-21 Outpatient R [facility] [id number] -[id number] Univers 12:30:00 12:30:00 [id number] virgilio [facility] 2019-09-21 2019-09-21 [facility] [id number] Univers 12:30:00 12:30:00 SEGUN urrutia [facility] 2019-09-21 2019-09-21 Outpatient [facility] [id number] Univers 08:45:00 08:45:00 SEGUN [facility] 2019-09-18 2019-09-18 Emergency X DOYLE, [facility] ERT [id number] Univers 17:58:06 20:49:00 GISSELLE ruizvirgilio [facility] 2019-09-18 2019-09-18 Emergency Doyle, [facility] 1.2.589.828 [id number] Univers 17:58:06 20:49:00 Gisselle Isaac 350.1.13.10 i ty of [place] [phone] [facility] [address] 2019-09-12 2019-09-15 Hospital Sang Leal [facility] 1.2.840.1 14 [id number] Univers 09:17:22 13:30:00 Encounter Wayne Del Valle 350.1.13. 10 [place] [phone] [facility] [address] (CLC) 2019-09-10 2019-09-10 Patient Trupti Ahn 1.2.840.114 [id number] Univers 00:00:00 00:00:00 Outreach E Mcnally 350.1.13.10 i ty [place] [id number] [facility] [address] 2019-09-08 2019-09-08 Transition Keanu Navarreteanders 1.2.840.114 [id number] Univers 00:00:00 00:00:00 of Care Lucia Whitey 350.1.13.10 [place] [id number] [facility] [address] 2019-08-18 2019-09-07 [facility] Shanae Barney [facility] 1.2.840.1 14 [id number] Univers 14:20:52 14:10:00 Encounter Harris Garza 350.1.13.10 ity of [facility] [place] 4.2.7.2.686 [place] Mario Lewis [place] [phone] [facility] [address] ([facility]) Results Test Description Test Time Test Comments Results Result Comments Source POCT GLUCOSE (AUTOMATED) 2020-11-09 16:51:02 Test Item Value Reference Range Interpretation Comme nts POCT GLU (test code = 7983812952) 177 mg/dL 70-110 H Lab Interpretation (test code = 64157-8) Abnormal [facility]2020-11-09 16:51:02 Test Item Value Reference Range Interpretation Comments POCT GLU (test code = 4702064402) 177 mg/dL 70-110 H Lab Interpretation (test code = Abnormal 47334-7) [facility] WITHOUT [id number] 12:33:06 Test Item Value Reference Range Interpretation Comments WBC (test code = 6690-2) See_Comment [A utomated message] The system [facility] generated this result transmit tennille reference range : 4.20 - 10.70 10*3/?L. The reference range was not used to interpret this result as normal/abnormal . RBC (test code = 789-8) See_Comment L [Au tomated message] The system [facility] generated this result transmit tennille reference range [...] 777-3) See_Comment [Au tomated message] The system [facility] generated this result transmit tennille reference range : 150 - 328 10*3/?L. The reference range was not used to interpret this result as normal/abnormal . MPV (test code = 12.5 fL 9.8-13.0 18858-4) RDW-CV (test code = 22.8 % 12.1-15.4 H 788-0) RDW-SD (test code = 64.1 fL 38.5-51.6 H 64792-7) NRBC x10^3 (test code = <0.01 See_Comment [Au tomated message] 9832839904) The system [facility] generated this result transmit tennille reference range : 10*3/?L. The reference range was not used to interpret this result as normal/abnormal . NRBC/100 WBC (test code See_Comment [Au tomated message] = 5470150143) The system [facility] generated this result transmit tennille reference range : 0.0 - 10.0 /100 WBC s. The reference r christine was not used to interpret this result as normal/abnormal . IPF % (test code = 3886974212) Lab Interpretation (test Abnormal code = 44989-7) [facility] WITHOUT [id number] 12:33:06 Test Item Value Reference Range Interpretation Comments WBC (test code = 6690-2) See_Comment [A utomated message] The system [employer] generated this result transmit tennille reference range : 4.20 - 10.70 10*3/?L. The reference range was not used to interpret this result as normal/abnormal . RBC (test code = 789-8) See_Comment L [Au tomated message] The system [employer] generated this result transmit tennille reference range [...] 777-3) See_Comment [Au tomated message] The system [employer] generated this result transmit tennille reference range : 150 - 328 10*3/?L. The reference range was not used to interpret this result as normal/abnormal . MPV (test code = 12.5 fL 9.8-13.0 69646-3) RDW-CV (test code = 22.8 % 12.1-15.4 H 788-0) RDW-SD (test code = 64.1 fL 38.5-51.6 H 49266-0) NRBC x10^3 (test code = <0.01 See_Comment [Au tomated message] 7910732755) The system [employer] generated this result transmit tennille reference range : 10*3/?L. The reference range was not used to interpret this result as normal/abnormal . NRBC/100 WBC (test code See_Comment [Au tomated message] = 6797628663) The system [employer] generated this result transmit tennille reference range : 0.0 - 10.0 /100 WBC s. The reference r christine was not used to interpret this result as normal/abnormal . IPF % (test code = 9499435580) Lab Interpretation (test Abnormal code = 20517-7) [facility]2021-04-28 12:23:25 Test Item Value Reference Range Interpretation Comments MAGNESIUM (test code = 1347708259) 2.7 mg/dL 1.7-2.4 H Lab Interpretation (test code = Abnormal 27730-1) [facility] METABOLIC PANEL (NA, K, CL, CO2, GLUCOSE, BUN, CREATININE, CA)2020-11-09 12:23:25 Test Item Value Reference Range Interpretation Comments NA (test code = 146 mmol/L 135-145 H 9189125502) K (test code = 4.0 mmol/L 3.5-5.0 0526127496) CL (test code = 110 mmol/L 98-108 H 7758180646) CO2 TOTAL (test code = 31 mmol/L 23-31 0936335882) AGAP (test code = 2-16 9666036130) BUN (test code = 49 mg/dL 7-23 H 3504991762) GLUCOSE (test code = 114 mg/dL 70-110 H 8060652755) CREATININE (test code = 1.23 mg/dL 0.60-1.25 3496711192) CALCIUM (test code = 7.8 mg/dL 8.6-10.6 L 7452254499) eGFR (test code = mL/min/1.73m2 8617467270) JUAN LUIS (test code = JUAN LUIS) [...] tests). Lab Interpretation Abnormal (test code = 10749-8) [facility] METABOLIC PANEL (NA, K, CL, CO2, GLUCOSE, BUN, CREATININE, CA)2020-11-09 12:23:25 Test Item Value Reference Range Interpretation Comments NA (test code = 146 mmol/L 135-145 H 2183606865) K (test code = 4.0 mmol/L 3.5-5.0 9969839348) CL (test code = 110 mmol/L 98-108 H 5854660011) CO2 TOTAL (test code = 31 mmol/L 23-31 8931438351) AGAP (test code = 2-16 1697344954) BUN (test code = 49 mg/dL 7-23 H 4412629709) GLUCOSE (test code = 114 mg/dL 70-110 H 2200030914) CREATININE (test code = 1.23 mg/dL 0.60-1.25 1803404109) CALCIUM (test code = 7.8 mg/dL 8.6-10.6 L 5713376021) eGFR (test code = mL/min/1.73m2 5380505596) JUAN LUIS (test code = JUAN LUIS) [...] tests). Lab Interpretation Abnormal (test code = 49035-2) [facility] Test Item Value Reference Range Interpretation Comments MAGNESIUM (test code = 8083901468) 2.7 mg/dL 1.7-2.4 H Lab Interpretation (test code = Abnormal 71914-5) [facility] GLUCOSE (AUTOMATED)2020-11-09 10:56:45 Test Item Value Reference Range Interpretation Comments POCT GLU (test code = 8300783038) 129 mg/dL 70-110 H Lab Interpretation (test code = Abnormal 33976-7) [facility] GLUCOSE (AUTOMATED)2020-11-09 05:24:07 Test Item Value Reference Range Interpretation Comments POCT GLU (test code = 7437717854) 203 mg/dL 70-110 H Lab Interpretation (test code = Abnormal 67847-4) [facility] GLUCOSE (AUTOMATED)2020-11-08 23:23:05 Test Item Value Reference Range Interpretation Comments POCT GLU (test code = 1799185998) 238 mg/dL 70-110 H Lab Interpretation (test code = Abnormal 11940-0) [facility] GLUCOSE (AUTOMATED)2020-11-08 15:48:22 Test Item Value Reference Range Interpretation Comments POCT GLU (test code = 7002135268) 193 mg/dL 70-110 H Lab Interpretation (test code = Abnormal 82605-9) [facility] THORAX W [id number] 14:45:56 1. 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 Himb, Radiant Results Inft User - 11/08/2020 9:47 AM CDTEXAM: CT CHEST, ABDOMEN ANDPELVIS WITHOUT CONTRAST, CONSULTATION OUTSIDEHISTORY: 65 years -old Male with uti - shock COMPARISON: None, correlation with CT abdomen pelvis with and withoutcontrast from 09/20/2017TECHNIQUE: CT examination acquisition dated 10/22/2020 from [facility], labeled with the patients name, was submitted [...] reviewed this study and agree with the abovereport.[facility] THORAX W [id number] 14:45:56 1. ?Multifocal mixed attenuation opacities and [...] TECHNIQUE: CT examination acquisition dated 10/22/2020 from [facility], labeled with the patients name, was submitted [...] 09/20/2017TECHNIQUE: CT examination acquisition dated 10/22/2020 from [facility], labeled with the patients name, was submitted [...] reviewed this study and agree with the abovereport.[facility]OM[facility])2020-11-08 11:15:50 Test Item Value Reference Range Interpretation Comments POCT GLU (test code = 2453585095) 126 mg/dL 70-110 H Lab Interpretation (test code = Abnormal 65891-9) [facility] (NA, K, CL, CO2, GLUCOSE, BUN, CREATININE, CA)2020-11-08 10:22:09 Test Item Value Reference Range Interpretation Comments NA (test code = 147 mmol/L 135-145 H 4273301155) K (test code = 4.1 mmol/L 3.5-5.0 0832371723) CL (test code = 113 mmol/L 98-108 H 4733195675) CO2 TOTAL (test code = 30 mmol/L 23-31 3198304654) AGAP (test code = 2-16 9911998361) BUN (test code = 43 mg/dL 7-23 H 3633212809) GLUCOSE (test code = 113 mg/dL 70-110 H 7402084566) CREATININE (test code = 1.17 mg/dL 0.60-1.25 2596763256) CALCIUM (test code = 7.6 mg/dL 8.6-10.6 L 1435975639) eGFR (test code = mL/min/1.73m2 3475356611) JUAN LUIS (test code = JUAN LUIS) [...] tests). Lab Interpretation Abnormal (test code = 84235-2) [facility] WITH [id number] 10:16:46 Test Item Value Reference Range Interpretation [...] (test code = 65.6 fL 38.5-51.6 H 44730-2) RDW-CV (test code = 23.0 % 12.1-15.4 H 788-0) PLT (test code = See_Comment [Automated 777-3) message] The sy stem which generated this result transmitted reference range : 150 - 328 10*3/ ?L. The reference r christine was not used to interpret this result as normal/abnormal . MPV (test code = 13.3 fL 9.8-13.0 H 00618-1) NRBC/100 WBC (test See_Comment [Automat ed code = 7053568761) message] The system which generated this result transmitted reference range : 0.0 - 10.0 /100 WBCs. The refer ence range was not u sed to interpret th is result as normal/abnormal . NRBC x10^3 (test code <0.01 See_Comment [Auto mated = 3620920354) message] The s ystem which generated this result transmitted reference range : 10*3/?L. The reference range was not used to interpret this result as normal/abnormal . GRAN MAT (NEUT) % 71.8 % (test code = 770-8) IMM GRAN % (test code 0.30 % = 2007664375) LYMPH % (test code = 17.7 % 736-9) MONO % (test code = 7.2 % 5905-5) EOS % (test code = 2.5 % 713-8) BASO % (test code = 0.5 % 706-2) GRAN MAT x10^3(ANC) 4.57 10*3/uL 1.99-6.95 (test code = 1099228615) IMM GRAN x10^3 (test <0.03 0.00-0.06 code = 8138814236) LYMPH x10^3 (test code 1.13 10*3/uL 1.09-3.23 = 731-0) MONO x10^3 (test code 0.46 10*3/uL 0.36-1.02 = 742-7) EOS x10^3 (test code = 0.16 10*3/uL 0.06-0.53 711-2) BASO x10^3 (test code 0.03 10*3/uL 0.01-0.09 = 704-7) Lab Interpretation Abnormal (test code = 88155-9) [facility] WITH [id number] 10:16:46 Test Item Value Reference Range Interpretation [...] (test code = 65.6 fL 38.5-51.6 H 03531-3) RDW-CV (test code = 23.0 % 12.1-15.4 H 788-0) PLT (test code = See_Comment [Automated 777-3) message] The sy stem which generated this result transmitted reference range : 150 - 328 10*3/ ?L. The reference r christine was not used to interpret this result as normal/abnormal . MPV (test code = 13.3 fL 9.8-13.0 H 62342-3) NRBC/100 WBC (test See_Comment [Automat ed code = 1245202961) message] The system which generated this result transmitted reference range : 0.0 - 10.0 /100 WBCs. The refer ence range was not u sed to interpret th is result as normal/abnormal . NRBC x10^3 (test code <0.01 See_Comment [Auto mated = 6237909331) message] The s ystem which generated this result transmitted reference range : 10*3/?L. The reference range was not used to interpret this result as normal/abnormal . GRAN MAT (NEUT) % 71.8 % (test code = 770-8) IMM GRAN % (test code 0.30 % = 9377339545) LYMPH % (test code = 17.7 % 736-9) MONO % (test code = 7.2 % 5905-5) EOS % (test code = 2.5 % 713-8) BASO % (test code = 0.5 % 706-2) GRAN MAT x10^3(ANC) 4.57 10*3/uL 1.99-6.95 (test code = 6315123302) IMM GRAN x10^3 (test <0.03 0.00-0.06 code = 1081201044) LYMPH x10^3 (test code 1.13 10*3/uL 1.09-3.23 = 731-0) MONO x10^3 (test code 0.46 10*3/uL 0.36-1.02 = 742-7) EOS x10^3 (test code = 0.16 10*3/uL 0.06-0.53 711-2) BASO x10^3 (test code 0.03 10*3/uL 0.01-0.09 = 704-7) Lab Interpretation Abnormal (test code = 77407-3) [facility] GLUCOSE (AUTOMATED)2020-11-08 05:43:41 Test Item Value Reference Range Interpretation Comments POCT GLU (test code = 9720389908) 123 mg/dL 70-110 H Lab Interpretation (test code = Abnormal 58549-9) [facility] GLUCOSE (AUTOMATED)2020-11-07 22:02:56 Test Item Value Reference Range Interpretation Comments POCT GLU (test code = 8105083372) 120 mg/dL 70-110 H Lab Interpretation (test code = Abnormal 84219-0) [facility] [id number] 15:30:56 Nonobstructive bowel gas pattern. Mild stool [...] this study and agree with theabove report. [facility]uda[facility] CHEST 1 [id number] 14:18:52EXAM: XR CHEST 1 VW HISTORY: fever [...] skin folds on the right obscure the lungbases.[facility] CHEST 1 [id number] 14:18:52 EXAM: XR CHEST 1 VW HISTORY: [...] skin folds on the right obscure the lungbases.[facility]udaPOLA GLUCOSE (AUTOMATED) 2020-11-07 13:14:41 Test Item Value Reference Range Interpretation Comments POCT GLU (test code = 5519347143) 88 mg/dL 70-110 Lab Interpretation (test code = Normal 89002-9) [facility] METABOLIC PANEL (NA, K, CL, CO2, GLUCOSE, BUN, CREATININE, CA)2020-11-07 10:43:49 Test Item Value Reference Range Interpretation Comments NA (test code = 148 mmol/L 135-145 H 8537193495) K (test code = 4.1 mmol/L 3.5-5.0 9608765724) CL (test code = 113 mmol/L 98-108 H 1604409108) CO2 TOTAL (test code = 35 mmol/L 23-31 H 4552211150) AGAP (test code = <1 2-16 L 3640093718) BUN (test code = 45 mg/dL 7-23 H 2205122498) GLUCOSE (test code = 63 mg/dL 70-110 L 3014734581) CREATININE (test code = 1.33 mg/dL 0.60-1.25 H 9198376431) CALCIUM (test code = 8.0 mg/dL 8.6-10.6 L 0804578546) eGFR (test code = mL/min/1.73m2 8292429526) JUAN LUIS (test code = JUAN LUIS) [...] tests). Lab Interpretation Abnormal (test code = 63776-8) [facility]2021-04-26 10:42:07 Test Item Value Reference Range Interpretation Comments MAGNESIUM (test code = 3797882559) 2.7 mg/dL 1.7-2.4 H Lab Interpretation (test code = Abnormal 53186-1) [facility] GL[facility] (AUTOMATED)2020-11-07 10:27:42 Test Item Value Reference Range Interpretation Comments POCT GLU (test code = 8865569820) 80 mg/dL 70-110 Lab Interpretation (test code = Normal 39833-6) [facility] WITHOUT [id number] 10:22:42 Test Item Value Reference Range Interpretation Comments WBC (test code = 6690-2) See_Comment [A utomated message] The system [employer] generated this result transmit tennille reference range : 4.20 - 10.70 10*3/?L. The reference range was not used to interpret this result as normal/abnormal . RBC (test code = 789-8) See_Comment L [Au tomated message] The system [employer] generated this result transmit tennille reference range [...] 777-3) See_Comment [Au tomated message] The system [employer] [employer] generated this result transmit tennille reference range : 150 - 328 10*3/?L. The reference range was not used to interpret this result as normal/abnormal . MPV (test code = 12.7 fL 9.8-13.0 27637-0) RDW-CV (test code = 23.8 % 12.1-15.4 H 788-0) RDW-SD (test code = 65.6 fL 38.5-51.6 H 11902-6) NRBC x10^3 (test code = <0.01 See_Comment [Au tomated message] 3300873787) The system [employer] generated this result transmit tennille reference range : 10*3/?L. The reference range was not used to interpret this result as normal/abnormal . NRBC/100 WBC (test code See_Comment [Au tomated message] = 9218843999) The system [facility] generated this result transmit tennille reference range : 0.0 - 10.0 /100 WBC s. The reference r christine was not used to interpret this result as normal/abnormal . IPF % (test code = 4498183418) Lab Interpretation (test Abnormal code = 45433-4) [facility] GLUCOSE (AUTOMATED)2020-11-07 05:14:24 Test Item Value Reference Range Interpretation Comments POCT GLU (test code = 7993589788) 87 mg/dL 70-110 Lab Interpretation (test code = Normal 06178-2) [facility] GLUCOSE (AUTOMATED)2020-11-06 22:50:06 Test Item Value Reference Range Interpretation Comments POCT GLU (test code = 2105453973) 80 mg/dL 70-110 Lab Interpretation (test code = Normal 18891-2) [facility] GLUCOSE (AUTOMATED)2020-11-06 16:50:42 Test Item Value Reference Range Interpretation Comments POCT GLU (test code = 8205249866) 146 mg/dL 70-110 H Lab Interpretation (test code = Abnormal 97023-3) [facility] GLUCOSE (AUTOMATED)2020-11-06 16:50:42 Test Item Value Reference Range Interpretation Comments POCT GLU (test code = 8969608365) 146 mg/dL 70-110 H Lab Interpretation (test code = Abnormal 35121-4) [facility] [id number] 12:14:44 Test Item Value Reference Range Interpretation Comments URINE CULTURE (test No aerobic growth (< code = 630-4) 1000 CFU/mL) [facility] [id number] 12:14:44 Test Item Value Reference Range Interpretation Comments URINE CULTURE (test No aerobic growth (< code = 630-4) 1000 CFU/mL) [facility] [id number] 12:14:44 Test Item Value Reference Range Interpretation Comments URINE CULTURE (test No aerobic growth (< code = 630-4) 1000 CFU/mL) [facility] 11:42:12 Test Item Value Reference Range Interpretation Comments MAGNESIUM (test code = 5098558142) 2.6 mg/dL 1.7-2.4 H Lab Interpretation (test code = Abnormal 39127-0) [facility] (NA, K, CL, CO2, GLUCOSE, BUN, CREATININE, CA)2020-11-06 11:42:12 Test Item Value Reference Range Interpretation Comments NA (test code = 146 mmol/L 135-145 H 7127444268) K (test code = 4.0 mmol/L 3.5-5.0 3527190098) CL (test code = 112 mmol/L 98-108 H 8313883756) CO2 TOTAL (test code = 32 mmol/L 23-31 H 7593344862) AGAP (test code = 2-16 2786449080) BUN (test code = 47 mg/dL 7-23 H 8659260674) GLUCOSE (test code = 176 mg/dL 70-110 H 0902424345) CREATININE (test code = 1.33 mg/dL 0.60-1.25 H 9216903869) CALCIUM (test code = 7.9 mg/dL 8.6-10.6 L 4492751633) eGFR (test code = mL/min/1.73m2 1104817923) JUAN LUIS (test code = JUAN LUIS) [...] tests). Lab Interpretation Abnormal (test code = 46492-7) [facility] METABOLIC PANEL (NA, K, CL, CO2, GLUCOSE, BUN, CREATININE, CA)2020-11-06 11:42:12 Test Item Value Reference Range Interpretation Comments NA (test code = 146 mmol/L 135-145 H 1521791140) K (test code = 4.0 mmol/L 3.5-5.0 3921165084) CL (test code = 112 mmol/L 98-108 H 5502355762) CO2 TOTAL (test code = 32 mmol/L 23-31 H 0900555556) AGAP (test code = 2-16 7978925345) BUN (test code = 47 mg/dL 7-23 H 0320094864) GLUCOSE (test code = 176 mg/dL 70-110 H 9541925314) CREATININE (test code = 1.33 mg/dL 0.60-1.25 H 6815030950) CALCIUM (test code = 7.9 mg/dL 8.6-10.6 L 5692040900) eGFR (test code = mL/min/1.73m2 4795971055) JUAN LUIS (test code = JUAN LUIS) [...] tests). Lab Interpretation Abnormal (test code = 95460-3) [facility] Test Item Value Reference Range Interpretation Comments MAGNESIUM (test code = 1614579771) 2.6 mg/dL 1.7-2.4 H Lab Interpretation (test code = Abnormal 04008-1) [facility] WITHOUT [id number] 11:35:08 Test Item Value Reference Range Interpretation Comments WBC (test code = 6690-2) See_Comment [A utomated message] The system [employer] generated this result transmit tennille reference range : 4.20 - 10.70 10*3/?L. The reference range was not used to interpret this result as normal/abnormal . RBC (test code = 789-8) See_Comment L [Au tomated message] The system [employer] generated this result transmit tennille reference range [...] 777-3) See_Comment [Au tomated message] The system [employer] generated this result transmit tennille reference range : 150 - 328 10*3/?L. The reference range was not used to interpret this result as normal/abnormal . MPV (test code = 13.6 fL 9.8-13.0 H 62175-2) RDW-CV (test code = 23.8 % 12.1-15.4 H 788-0) RDW-SD (test code = 66.0 fL 38.5-51.6 H 44653-0) NRBC x10^3 (test code = <0.01 See_Comment [Au tomated message] 6391068589) The system [employer] generated this result transmit tennille reference range : 10*3/?L. The reference range was not used to interpret this result as normal/abnormal . NRBC/100 WBC (test code See_Comment [Au tomated message] = 0726495650) The system [facility] generated this result transmit tennille reference range : 0.0 - 10.0 /100 WBC s. The reference r christine was not used to interpret this result as normal/abnormal . IPF % (test code = 0266560415) Lab Interpretation (test Abnormal code = 20968-8) [facility] WITHOUT [id number] 11:35:08 Test Item Value Reference Range Interpretation Comments WBC (test code = 6690-2) See_Comment [A utomated message] The system [employer] generated this result transmit tennille reference range : 4.20 - 10.70 10*3/?L. The reference range was not used to interpret this result as normal/abnormal . RBC (test code = 789-8) See_Comment L [Au tomated message] The system [employer] generated this result transmit tennille reference range [...] 777-3) See_Comment [Au tomated message] The system [employer] generated this result transmit tennille reference range : 150 - 328 10*3/?L. The reference range was not used to interpret this result as normal/abnormal . MPV (test code = 13.6 fL 9.8-13.0 H 74420-7) RDW-CV (test code = 23.8 % 12.1-15.4 H 788-0) RDW-SD (test code = 66.0 fL 38.5-51.6 H 86484-9) NRBC x10^3 (test code = <0.01 See_Comment [Au tomated message] 6316765228) The system [employer] generated this result transmit tennille reference range : 10*3/?L. The reference range was not used to interpret this result as normal/abnormal . NRBC/100 WBC (test code See_Comment [Au tomated message] = 9562434234) The system [employer] generated this result transmit tennille reference range : 0.0 - 10.0 /100 WBC s. The reference r christine was not used to interpret this result as normal/abnormal . IPF % (test code = 6300607499) Lab Interpretation (test Abnormal code = 72900-5) [facility]2020-[facility]-06 11:12:42 Test Item Value Reference Range Interpretation Comments POCT GLU (test code = 8965945782) 206 mg/dL 70-110 H Lab Interpretation (test code = Abnormal 75185-8) [facility], [id number] 07:41:26 Test Item Value Reference Range Interpretation Comments VIT B6 (test code = 10 nmol/L 20.0-125.0 L INTERPRE TIVE 32440-3) INFORMATION: Vi tamin B6 (Pyridoxal 5-Phosphate) Py ridoxal 5'-phosphate me asured in a specimen collected follo wing an 8-hour or overn ight fast accurately indicates vitam in B6 nutritional sta tus. Non-fasting spe cimen concentration r eflects recent vitamin intake. This test was developed and i ts performance characteristics determined by A [facility]. I t has not been cleare d or approved by the [place] Food and Drug Administration. This test was perfor med in a CLIA certifie d laboratory and is intended for cl inical purposes.Perfor med By: NESHA Flori [address] [place] [id number] Director: Dori Crum MD Lab Interpretation Abnormal (test code = 21648-8) [facility], [id number] 07:41:26 Test Item Value Reference Range Interpretation Comments VIT B6 (test code = 10 nmol/L 20.0-125.0 L INTERPRE TIVE 16712-2) INFORMATION: Vi tamin B6 (Pyridoxal 5-Phosphate) Py ridoxal 5'-phosphate me asured in a specimen collected follo wing an 8-hour or overn ight fast accurately indicates vitam in B6 nutritional sta tus. Non-fasting spe cimen concentration r eflects recent vitamin intake. This test was developed and i ts performance characteristics determined by A [facility]. I t has not been cleare d or approved by the [place] Food and Drug Administration. This test was perfor med in a CLIA certifie d laboratory and is intended for cl inical purposes.Perfor med By: RUST [employer] [place], [place] [address]Klefxfhxad Director: Dori Crum MD Lab Interpretation Abnormal (test code = 76510-7) [facility], [id number] 07:41:26 Test Item Value Reference Range Interpretation Comments VIT B6 (test code = 10 nmol/L 20.0-125.0 L INTERPRE TIVE 28007-8) INFORMATION: Vi tamin B6 (Pyridoxal 5-Phosphate) Py [...] intended for cl inical purposes.Perfor med By: RUST [employer] [place], [place] [address]Gadxohvzcy Director: Dori Crum MD Lab Interpretation Abnormal (test code = 00688-4) [facility]2020-11-06 05:08:09 Test Item Value Reference Range Interpretation Comments POCT GLU (test code = 7924741519) 175 mg/dL 70-110 H Lab Interpretation (test code = Abnormal 31605-8) [facility]1 (THIAMINE), WHOLE [id number] 00:12:20 Test Item Value Reference Range Interpretation Comments Vitamin B1, Whole 104 nmol/L 70-180 INTERPRETI VE INFORMATION: Blood (test code = Vitamin B 1, Whole Blood 62528-7) This assay gal ures the concentration o [...] is intended for clinical purposes.Perfor med By: [address] [address] aboratory Director: Dori Crum MD [facility]uda[facility] B1 (THIAMINE), WHOLE [id number] 00:12:20 Test Item Value Reference Range Interpretation Comments Vitamin B1, Whole 104 nmol/L 70-180 INTERPRETI VE INFORMATION: Blood (test code = Vitamin B 1, Whole Blood 29954-3) This assay gal ures the concentration o [...] is intended for clinical purposes.Perfor med By: [address] [address]Z aboratory Director: Dori Crum MD [facility] B1 (THIAMINE), WHOLE [id number] 00:12:20 Test Item Value Reference Range Interpretation Comments Vitamin B1, Whole 104 nmol/L 70-180 INTERPRETI VE INFORMATION: Blood (test code = Vitamin B 1, Whole Blood 20201-7) This assay gal ures the concentration o [...] is intended for clinical purposes.Perfor med By: NESHA [address] [place], [place] [address]Y aboratory Director: Dori Crum MD [facility] GLUCOSE (AUTOMATED)2020-11-05 18:42:54 Test Item Value Reference Range Interpretation Comments POCT GLU (test code = 5383302664) 139 mg/dL 70-110 H Lab Interpretation (test code = Abnormal 04647-2) [facility] [id number] 12:13:36 Test Item Value Reference Range Interpretation Comments CSF CULTURE (test No organisms isolated code = 606-4) Gram stain (test code Occasional (Rare) = 664-3) Mononuclear cells [facility] [id number] 12:13:36 Test Item Value Reference Range Interpretation Comments CSF CULTURE (test No organisms isolated code = 606-4) Gram stain (test code Occasional (Rare) = 664-3) Mononuclear cells [facility] [id number] 12:13:36 Test Item Value Reference Range Interpretation Comments CSF CULTURE (test No organisms isolated code = 606-4) Gram stain (test code Occasional (Rare) = 664-3) Mononuclear cells [facility] GLUCOSE (AUTOMATED)2020-11-05 11:19:24 Test Item Value Reference Range Interpretation Comments POCT GLU (test code = 8656872800) 186 mg/dL 70-110 H Lab Interpretation (test code = Abnormal 93342-8) [facility] METABOLIC PANEL (NA, K, CL, CO2, GLUCOSE, BUN, CREATININE, CA)2020-11-05 10:23:43 Test Item Value Reference Range Interpretation Comments NA (test code = 147 mmol/L 135-145 H 2455250805) K (test code = 3.9 mmol/L 3.5-5.0 1450351910) CL (test code = 115 mmol/L 98-108 H 7368364039) CO2 TOTAL (test code = 29 mmol/L 23-31 4179368409) AGAP (test code = 2-16 9214759068) BUN (test code = 47 mg/dL 7-23 H 4499804702) GLUCOSE (test code = 157 mg/dL 70-110 H 3049687112) CREATININE (test code = 1.35 mg/dL 0.60-1.25 H 2854240486) CALCIUM (test code = 8.0 mg/dL 8.6-10.6 L 9818098081) eGFR (test code = mL/min/1.73m2 8755986234) JUAN LUIS (test code = JUAN LUIS) [...] tests). Lab Interpretation Abnormal (test code = 77534-3) [facility]21-[facility] 10:23:43 Test Item Value Reference Range Interpretation Comments MAGNESIUM (test code = 4737990526) 2.7 mg/dL 1.7-2.4 H Lab Interpretation (test code = Abnormal 68976-0) [facility] WITHOUT [id number] 09:54:56 Test Item Value Reference Range Interpretation Comments WBC (test code = 6690-2) See_Comment H [A utomated message] The system [employer] generated this result transmit tennille reference range : 4.20 - 10.70 10*3/?L. The reference range was not used to interpret this result as normal/abnormal . RBC (test code = 789-8) See_Comment L [Au tomated message] The system the [facility] generated this result transmit tennille reference [...] 777-3) See_Comment [Au tomated message] The system the [facility] generated this result transmit tennille reference range : 150 - 328 10*3/?L. The reference range was not used to interpret this result as normal/abnormal . MPV (test code = 12.5 fL 9.8-13.0 78828-8) RDW-CV (test code = 23.9 % 12.1-15.4 H 788-0) RDW-SD (test code = 66.3 fL 38.5-51.6 H 72260-8) NRBC x10^3 (test code = <0.01 See_Comment [Au tomated message] 6080337940) The system the [facility] generated this result transmit tennille reference range : 10*3/?L. The reference range was not used to interpret this result as normal/abnormal . NRBC/100 WBC (test code See_Comment [Au tomated message] = 3457184548) The system [facility] generated this result transmit tennille reference range : 0.0 - 10.0 /100 WBC s. The reference r christine was not used to interpret this result as normal/abnormal . IPF % (test code = 0381778038) Lab Interpretation (test Abnormal code = 94056-8) [facility] GLUCOSE (AUTOMATED)2020-11-05 04:55:22 Test Item Value Reference Range Interpretation Comments POCT GLU (test code = 0072862186) 112 mg/dL 70-110 H Lab Interpretation (test code = Abnormal 00017-3) [facility]RO[facility] PEROXIDASE (TPO) [id number] 23:58:26 Test Item Value Reference Interpretation Comments Range TPO Ab IgG (test See_Comment [Automated code = 3381480425) message] The system which generated this result [...] Graves'disease. Lab Interpretation Normal (test code = 10360-8) [facility]uda[facility]YROID PEROXIDASE (TPO) [id number] 23:58:26 Test Item Value Reference Interpretation Comments Range TPO Ab IgG (test See_Comment [Automated code = 2830461725) message] The system which generated this result [...] Graves'disease. Lab Interpretation Normal (test code = 00677-8) [facility] PEROXIDASE (TPO) [id number] 23:58:26 Test Item Value Reference Interpretation Comments Range TPO Ab IgG (test See_Comment [Automated code = 4787801275) message] The system which generated this result [...] Graves'disease. Lab Interpretation Normal (test code = 11354-1) [facility]2020-11-04 22:59:44 Test Item Value Reference Range Interpretation Comments POCT GLU (test code = 8222145587) 89 mg/dL 70-110 Lab Interpretation (test code = Normal 83974-1) [facility]udaXR [id number] 22:07:20 The contrast material is identified in the small bowel loops at the midpelvis. Preliminary Report Dictated by Resident: Milton Armendariz ?MD Dougie., have reviewed this study and agree withthe [...] have reviewed thisstudy and agree withthe above report.[facility] [id number] 22:07:20 The contrast material is identified in [...] have reviewed thisstudy and agree withthe above report.[facility] [id number] 22:07:20 The contrast material is identified in [...] have reviewed thisstudy and agree withthe above report.[facility]2020-11-04 16:52:36 Test Item Value Reference Range Interpretation Comments POCT GLU (test code = 7848141944) 134 mg/dL 70-110 H Lab Interpretation (test code = Abnormal 99797-5) [facility]udaPROTHROMBIN TIME / [id number] 16:29:11 Test Item Value Reference Range Interpretation Comments PROTIME PATIENT (test See_Comment H [Auto mated message] code = 5964-2) The system [employer] generated this result transmitted ref erence range: 10.1 - 1 2.6 Seconds. The reference range was not used to int erpret this result as normal/abnormal . INR (test code = 6301-6) Nor mal INR <1.1; Warfarin Therap eutic range 2.0 to 3. 0 or 2.5 to 3.5, dep ending upon the indica tions. Lab Interpretation (test Abnormal code = 15376-1) [facility]udaPROTHROMBIN TIME / [id number] 16:29:11 Test Item Value Reference Range Interpretation Comments PROTIME PATIENT (test See_Comment H [Auto mated message] code = 5964-2) The system [employer] generated this result transmitted ref erence range: 10.1 - 1 2.6 Seconds. The reference range was not used to int erpret this result as normal/abnormal . INR (test code = 6301-6) Nor mal INR <1.1; Warfarin Therap eutic range 2.0 to 3. 0 or 2.5 to 3.5, dep ending upon the indica tions. Lab Interpretation (test Abnormal code = 25897-4) [facility]udaPROTHROMBIN [facility] / [id number] 16:29:11 Test Item Value Reference Range Interpretation Comments PROTIME PATIENT (test See_Comment H [Auto mated message] code = 5964-2) The system [employer] generated this result transmitted ref erence range: 10.1 - 1 2.6 Seconds. The reference range was not used to int erpret this result as normal/abnormal . INR (test code = 6301-6) Nor mal INR <1.1; Warfarin Therap eutic range 2.0 to 3. 0 or 2.5 to 3.5, dep ending upon the indica tions. Lab Interpretation (test Abnormal code = 89018-6) [facility] GLU[facility]SE (AUTOMATED)2020-11-04 15:23:28 Test Item Value Reference Range Interpretation Comments POCT GLU (test code = 1296589248) 144 mg/dL 70-110 H Lab Interpretation (test code = Abnormal 37784-6) [facility] METABOLIC PANEL (NA, K, CL, CO2, GLUCOSE, BUN, CREATININE, CA)2020-11-04 10:53:10 Test Item Value Reference Range Interpretation Comments NA (test code = 151 mmol/L 135-145 H 9985234803) K (test code = 3.8 mmol/L 3.5-5.0 5845356060) CL (test code = 119 mmol/L 98-108 H 5837002750) CO2 TOTAL (test code = 27 mmol/L 23-31 3158343559) AGAP (test code = 2-16 2158868628) BUN (test code = 48 mg/dL 7-23 H 2913436624) GLUCOSE (test code = 131 mg/dL 70-110 H 3429171331) CREATININE (test code = 1.36 mg/dL 0.60-1.25 H 1908944919) CALCIUM (test code = 8.1 mg/dL 8.6-10.6 L 3654205730) eGFR (test code = mL/min/1.73m2 8565675330) JUAN LUIS (test code = JUAN LUIS) [...] tests). Lab Interpretation Abnormal (test code = 07015-0) [facility]2021-[facility]-23 10:48:27 Test Item Value Reference Range Interpretation Comments MAGNESIUM (test code = 4879326187) 2.6 mg/dL 1.7-2.4 H Lab Interpretation (test code = Abnormal 23478-2) [facility] WITHOUT [id number] 10:27:45 Test Item Value Reference Range Interpretation Comments WBC (test code = See_Comment H [Automated message] 6690-2) The system [employer] generated this result transmitted ref erence range: 4.20 - 1 0.70 10*3/?L. The reference range was not used to int erpret this result as normal/abnormal . RBC (test code = 789-8) See_Comment L [Au tomated message] The system [employer] generated this result transmitted ref erence range: [...] 777-3) See_Comment [Au tomated message] The system [employer] generated this result transmitted ref erence range: 150 - 32 8 10*3/?L. The reference range was not used to int erpret this result as normal/abnormal . MPV (test code = Not Measure d 02888-3) RDW-CV (test code = 24.3 % 12.1-15.4 H 788-0) RDW-SD (test code = 68.2 fL 38.5-51.6 H 19986-5) NRBC x10^3 (test code = See_Comment [Au tomated message] 2025013423) The system [employer] generated this result transmitted ref erence range: 10*3/?L. The reference range was not used to int erpret this result as normal/abnormal . NRBC/100 WBC (test code See_Comment [Au tomated message] = 7609219672) The system [employer] generated this result transmitted ref erence range: 0.0 - 10 .0 /100 WBCs. The reference range was not used to int erpret this result as normal/abnormal . IPF % (test code = 10.2 % 1.2-10.7 Platelet count 1454099599) measured by fluorescence me thod. Lab Interpretation Abnormal (test code = 03365-2) [facility]AUTOMATED)2020-11-03 16:55:39 Test Item Value Reference Range Interpretation Comments POCT GLU (test code = 7944711049) 123 mg/dL 70-110 H Lab Interpretation (test code = Abnormal 30914-8) [facility] METABOLIC PANEL (NA, K, CL, CO2, GLUCOSE, BUN, CREATININE, CA)2020-11-03 13:46:00 Test Item Value Reference Range Interpretation Comments NA (test code = 148 mmol/L 135-145 H 4201185812) K (test code = 4.7 mmol/L 3.5-5.0 2121259523) CL (test code = 120 mmol/L 98-108 H 8852035812) CO2 TOTAL (test code = 26 mmol/L 23-31 2070940387) AGAP (test code = 2-16 1163844049) BUN (test code = 47 mg/dL 7-23 H 6822105862) GLUCOSE (test code = 176 mg/dL 70-110 H 1640110604) CREATININE (test code = 1.35 mg/dL 0.60-1.25 H 4414268554) CALCIUM (test code = 8.0 mg/dL 8.6-10.6 L 1232574501) eGFR (test code = mL/min/1.73m2 6251791862) JUAN LUIS (test code = JUAN LUIS) [...] tests). Lab Interpretation Abnormal (test code = 03761-4) [facility] Test Item Value Reference Range Interpretation Comments MAGNESIUM (test code = 9844484381) 2.8 mg/dL 1.7-2.4 H Lab Interpretation (test code = Abnormal 00849-3) [facility]2020-11-03 12:57:44 Test Item Value Reference Range Interpretation Comments POCT GLU (test code = 3550449470) 190 mg/dL 70-110 H Lab Interpretation (test code = Abnormal 27629-3) [facility] WITH [id number] 11:16:10 Test Item Value Reference Range Interpretation [...] (test code = 62.2 fL 38.5-51.6 H 36560-1) RDW-CV (test code = 23.3 % 12.1-15.4 H 788-0) PLT (test code = See_Comment [Automated 777-3) message] The sy stem which generated this result transmitted reference range : 150 - 328 10*3/ ?L. The reference r christine was not used to interpret this result as normal/abnormal . MPV (test code = Not Measure d 62018-2) IPF % (test code = 8.2 % 1.2-10.7 Platelet count 5077790285) measured by fluorescence method. NRBC/100 WBC (test See_Comment [Automat ed code = 3955927872) message] The system which generated this result transmitted reference range : 0.0 - 10.0 /100 WBCs. The refer ence range was not u sed to interpret th is result as normal/abnormal . NRBC x10^3 (test code See_Comment [Auto mated = [id number]) message] The s ystem which generated this result transmitted reference range : 10*3/?L. The reference range was not used to interpret this result as normal/abnormal . GRAN MAT (NEUT) % 80.9 % (test code = 770-8) IMM GRAN % (test code 0.50 % = 7594932039) LYMPH % (test code = 5.3 % 736-9) MONO % (test code = 11.6 % 5905-5) EOS % (test code = 1.5 % 713-8) BASO % (test code = 0.2 % 706-2) GRAN MAT x10^3(ANC) 10.75 10*3/uL 1.99-6.95 H (test code = 2412345254) IMM GRAN x10^3 (test 0.06 10*3/uL 0.00-0.06 code = 7847157415) LYMPH x10^3 (test 0.71 10*3/uL 1.09-3.23 L code = 731-0) MONO x10^3 (test code 1.54 10*3/uL 0.36-1.02 H = 742-7) EOS x10^3 (test code 0.20 10*3/uL 0.06-0.53 = 711-2) BASO x10^3 (test code 0.03 10*3/uL 0.01-0.09 = 704-7) BASO STIPPLING (test Present A code = 703-9) SCHISTOCYTES (test 1+ A code = 800-3) Lab Interpretation Abnormal (test code = 57162-5) [facility] WITH [id number] 11:16:10 Test Item Value Reference Range Interpretation [...] (test code = 62.2 fL 38.5-51.6 H 79805-2) RDW-CV (test code = 23.3 % 12.1-15.4 H 788-0) PLT (test code = See_Comment [Automated 777-3) message] The sy stem which generated this result transmitted reference range : 150 - 328 10*3/ ?L. The reference r christine was not used to interpret this result as normal/abnormal . MPV (test code = Not Measure d 50440-7) IPF % (test code = 8.2 % 1.2-10.7 Platelet count 3319054049) measured by fluorescence method. NRBC/100 WBC (test See_Comment [Automat ed code = 1986013390) message] The system which generated this result transmitted reference range : 0.0 - 10.0 /100 WBCs. The refer ence range was not u sed to interpret th is result as normal/abnormal . NRBC x10^3 (test code See_Comment [Auto mated = 7011938894) message] The s ystem which generated this result transmitted reference range : 10*3/?L. The reference range was not used to interpret this result as normal/abnormal . GRAN MAT (NEUT) % 80.9 % (test code = 770-8) IMM GRAN % (test code 0.50 % = 2827489370) LYMPH % (test code = 5.3 % 736-9) MONO % (test code = 11.6 % 5905-5) EOS % (test code = 1.5 % 713-8) BASO % (test code = 0.2 % 706-2) GRAN MAT x10^3(ANC) 10.75 10*3/uL 1.99-6.95 H (test code = 1509770437) IMM GRAN x10^3 (test 0.06 10*3/uL 0.00-0.06 code = 9291645964) LYMPH x10^3 (test 0.71 10*3/uL 1.09-3.23 L code = 731-0) MONO x10^3 (test code 1.54 10*3/uL 0.36-1.02 H = 742-7) EOS x10^3 (test code 0.20 10*3/uL 0.06-0.53 = 711-2) BASO x10^3 (test code 0.03 10*3/uL 0.01-0.09 = 704-7) BASO STIPPLING (test Present A code = 703-9) SCHISTOCYTES (test 1+ A code = 800-3) Lab Interpretation Abnormal (test code = 75429-2) [facility] GLUCOSE (AUTOMATED)2020-11-03 10:14:51 Test Item Value Reference Range Interpretation Comments POCT GLU (test code = 0574719920) 198 mg/dL 70-110 H Lab Interpretation (test code = Abnormal 53417-5) [facility] GLUCOSE (AUTOMATED)2020-11-03 04:39:58 Test Item Value Reference Range Interpretation Comments POCT GLU (test code = 0459599641) 169 mg/dL 70-110 H Lab Interpretation (test code = Abnormal 55153-8) [facility] METABOLIC PANEL (NA, K, CL, CO2, GLUCOSE, BUN, CREATININE, CA)2020-11-03 02:59:33 Test Item Value Reference Range Interpretation Comments NA (test code = 150 mmol/L 135-145 H 2773219197) K (test code = 4.8 mmol/L 3.5-5.0 Slight 5271606295) hemolysis CL (test code = 121 mmol/L 98-108 H 3398547722) CO2 TOTAL (test code 24 mmol/L 23-31 = 8992450222) AGAP (test code = 2-16 5233891428) BUN (test code = 48 mg/dL 7-23 H Slight 3404437395) hemolysis GLUCOSE (test code = 135 mg/dL 70-110 H 9119044913) CREATININE (test code 1.25 mg/dL 0.60-1.25 = 9875158204) CALCIUM (test code = 7.7 mg/dL 8.6-10.6 L 4438133731) eGFR (test code = mL/min/1.73m2 1768771397) JUAN LUIS (test code = JUAN LUIS) [...] tests). Lab Interpretation Abnormal (test code = 84625-6) [facility] Test Item Value Reference Range Interpretation Comments MAGNESIUM (test code = 8237129974) 2.5 mg/dL 1.7-2.4 H Lab Interpretation (test code = Abnormal 13943-9) [facility] BY [id number] 23:12:08 Test Item Value Reference Range Interpretation Comments Escherichia coli K1 Negative Negative, (test code = 90289-2) Indeterminate, See Comment Haemophilus influenzae Negative Negative, (test code = 32267-2) Indeterminate, See Comment Listeria monocytogenes Negative Negative, (test code = 02403-2) Indeterminate, See Comment Neisseria meningitidis Negative Negative, (encapsulated) (test Indeterminate, code = 33280-0) See Comment Streptococcus agalactiae Negative Negative, (test code = 90317-9) Indeterminate, See Comment Streptococcus pneumoniae Negative Negative, (test code = 63676-4) Indeterminate, See Comment Cytomegalovirus (test Negative Negative, code = 49596-8) Indeterminate, See Comment Enterovirus (test code = Negative Negative, 23351-4) Indeterminate, See Comment Herpes simplex virus 1 Negative Negative, (test code = 40481-4) Indeterminate, See Comment Herpes simplex virus 2 Negative Negative, (test code = 81461-2) Indeterminate, See Comment Human herpesvirus 6 Negative Negative, (test code = 67052-5) Indeterminate, See Comment Human parechovirus (test Negative Negative, code = 74819-7) Indeterminate, See Comment Varicella zoster virus Negative Negative, (test code = 22343-6) Indeterminate, See Comment Cryptococcus Negative Negative, neoformans/gattii (test Indeterminate, code = 52316-1) See Comment JUAN LUIS (test code = JUAN LUIS) Negative:A negative result does not rule-out infection. ?This assay does not test for all potential infectious agents. Positive:A positive test result does not necessarily indicate the presence of viable organism. ? Lab Interpretation (test Normal code = 67381-4) [facility] BY [id number] 23:12:08 Test Item Value Reference Range Interpretation Comments Escherichia coli K1 Negative Negative, (test code = 25728-2) Indeterminate, See Comment Haemophilus influenzae Negative Negative, (test code = 44409-0) Indeterminate, See Comment Listeria monocytogenes Negative Negative, (test code = 63833-4) Indeterminate, See Comment Neisseria meningitidis Negative Negative, (encapsulated) (test Indeterminate, code = 59079-1) See Comment Streptococcus agalactiae Negative Negative, (test code = 98237-3) Indeterminate, See Comment Streptococcus pneumoniae Negative Negative, (test code = 75325-3) Indeterminate, See Comment Cytomegalovirus (test Negative Negative, code = 70365-2) Indeterminate, See Comment Enterovirus (test code = Negative Negative, 56755-0) Indeterminate, See Comment Herpes simplex virus 1 Negative Negative, (test code = 10464-0) Indeterminate, See Comment Herpes simplex virus 2 Negative Negative, (test code = 58403-3) Indeterminate, See Comment Human herpesvirus 6 Negative Negative, (test code = 36623-0) Indeterminate, See Comment Human parechovirus (test Negative Negative, code = 89169-0) Indeterminate, See Comment Varicella zoster virus Negative Negative, (test code = 76184-6) Indeterminate, See Comment Cryptococcus Negative Negative, neoformans/gattii (test Indeterminate, code = 19506-5) See Comment JUAN LUIS (test code = JUAN LUIS) Negative:A negative result does not rule-out infection. ?This assay does not test for all potential infectious agents. Positive:A positive test result does not necessarily indicate the presence of viable organism. ? Lab Interpretation (test Normal code = 10278-5) [facility] BY [id number] 23:12:08 Test Item Value Reference Range Interpretation Comments Escherichia coli K1 Negative Negative, (test code = 01861-3) Indeterminate, See Comment Haemophilus influenzae Negative Negative, (test code = 48138-6) Indeterminate, See Comment Listeria monocytogenes Negative Negative, (test code = 94313-9) Indeterminate, See Comment Neisseria meningitidis Negative Negative, (encapsulated) (test Indeterminate, code = 97801-4) See Comment Streptococcus agalactiae Negative Negative, (test code = 94288-1) Indeterminate, See Comment Streptococcus pneumoniae Negative Negative, (test code = 79092-3) Indeterminate, See Comment Cytomegalovirus (test Negative Negative, code = 42180-6) Indeterminate, See Comment Enterovirus (test code = Negative Negative, 47807-7) Indeterminate, See Comment Herpes simplex virus 1 Negative Negative, (test code = 26540-4) Indeterminate, See Comment Herpes simplex virus 2 Negative Negative, (test code = 54391-8) Indeterminate, See Comment Human herpesvirus 6 Negative Negative, (test code = 47957-6) Indeterminate, See Comment Human parechovirus (test Negative Negative, code = 32167-5) Indeterminate, See Comment Varicella zoster virus Negative Negative, (test code = 84701-0) Indeterminate, See Comment Cryptococcus Negative Negative, neoformans/gattii (test Indeterminate, code = 90893-8) See Comment JUAN LUIS (test code = JUAN LUIS) Negative:A negative result does not rule-out infection. ?This assay does not test for all potential infectious agents. Positive:A positive test result does not necessarily indicate the presence of viable organism. ? Lab Interpretation (test Normal code = 51410-8) [facility] GLUCOSE (AUTOMATED)2020-11-02 22:21:28 Test Item Value Reference Range Interpretation Comments POCT GLU (test code = 9812354234) 94 mg/dL 70-110 Lab Interpretation (test code = Normal 86879-2) [facility] FLUID DIRECT [id number] 22:15:37 Test Item Value Reference Range Interpretation Comments BF COLOR (test code = Clear 6976522306) BF WBC Count (test See_Comment [Automat ed message] The code = 5581208804) system [facility] generated this result transmit tennille reference range : 0 - 5 /?L. The reference r christine was not used to interpr et this result as bri l/abnormal. BF RBC Count (test See_Comment [Automat ed message] The code = 7434131623) system [facility] generated this result transmit tennille reference range : /?L. The reference range was not used to interpr et this result as bri l/abnormal. [facility] FLUID DIRECT [id number] 22:15:37 Test Item Value Reference Range Interpretation Comments BF COLOR (test code = Clear 2349593498) BF WBC Count (test See_Comment [Automat ed message] The code = 2270591627) system [facility] generated this result transmit tennille reference range : 0 - 5 /?L. The reference r christine was not used to interpr et this result as bri l/abnormal. BF RBC Count (test See_Comment [Automat ed message] The code = 1629915639) system [facility] generated this result transmit tennille reference range : /?L. The reference range was not used to interpr et this result as bri l/abnormal. [facility] FLUID DIRECT [id number] 22:15:37 Test Item Value Reference Range Interpretation Comments BF COLOR (test code = Clear 4192520075) BF WBC Count (test See_Comment [Automat ed message] The code = 6880631264) system [facility] generated this result transmit tennille reference range : 0 - 5 /?L. The reference r christine was not used to interpr et this result as bri l/abnormal. BF RBC Count (test See_Comment [Automat ed message] The code = 9122232195) system [facility] generated this result transmit tennille reference range : /?L. The reference range was not used to interpr et this result as bri l/abnormal. [facility] FLUID MANUAL [id number] 22:15:37#CELS CNTDUTMB LABORATORY SERVICESLess than 100 cells counted due to low WBC; Differential is not reported in percent. ?44 cells counted: ?0 Neutrophils, 17 Lymphocytes, 27 MacrophagesUnJoint venture between [facility] FLUID MANUAL [id number] 22:15:37#CELS CNTDUTMB LABORATORY SERVICESLess than 100 cells counted due to low WBC; Differential is not reported in percent. ?44 cells counted: ?0 Neutrophils, 17 Lymphocytes, 27 MacrophagesUnCHRISTUS [facility]ohn Hospital – KlebergBODY FLUID MANUAL [id number] 22:15:37#CELS CNTDUTMB LABORATORY SERVICESLess than 100 cells counted due to low WBC; Differential is not reported in percent. ?44 cells counted: ?0 Neutrophils, 17 Lymphocytes, 27 Macrophages General acute hospitalrospinal Fluid [id number] 21:46:09 Test Item Value Reference Range Interpretation Comments GLU CSF (test code = 0600474088) 80 mg/dL 50-80 UNSPUN BODY FLUID COLOR (test Colorless code = 2598162593) UNSPUN BODY FLUID CLARITY (test Clear code = 5549426961) SPUN BODY FLUID COLOR (test code Colorless = 5208736263) SPUN BODY FLUID CLARITY (test Clear code = 6344362571) Sediment (test code = No sediment. 5788131780) [facility] Fluid [id number] 21:46:09 Test Item Value Reference Range Interpretation Comments GLU CSF (test code = 8563721602) 80 mg/dL 50-80 UNSPUN BODY FLUID COLOR (test Colorless code = 5414951744) UNSPUN BODY FLUID CLARITY (test Clear code = 2425609360) SPUN BODY FLUID COLOR (test code Colorless = 2503551693) SPUN BODY FLUID CLARITY (test Clear code = 1645985545) Sediment (test code = No sediment. 8228274117) [facility] hospitalro[facility] Fluid [id number] 21:46:09 Test Item Value Reference Range Interpretation Comments GLU CSF (test code = 6111264660) 80 mg/dL 50-80 UNSPUN BODY FLUID COLOR (test Colorless code = 5627359925) UNSPUN BODY FLUID CLARITY (test Clear code = 2119460551) SPUN BODY FLUID COLOR (test code Colorless = 0658132909) SPUN BODY FLUID CLARITY (test Clear code = 9221423579) Sediment (test code = No sediment. 9336690083) [facility] hospitalrospinal Fluid [id number] 21:46:03 Test Item Value Reference Range Interpretation Comments T. PRO CSF (test code = 103.0 mg/dL 15.0-45.0 H 0149237711) UNSPUN BODY FLUID COLOR (test Colorless code = 3764771891) UNSPUN BODY FLUID CLARITY (test Clear code = 3818824105) SPUN BODY FLUID COLOR (test code Colorless = 3704055415) SPUN BODY FLUID CLARITY (test Clear code = 9377398044) Sediment (test code = No sediment. 9008355087) Lab Interpretation (test code = Abnormal 78327-7) [facility] Fluid [id number] 21:46:03 Test Item Value Reference Range Interpretation Comments T. PRO CSF (test code = 103.0 mg/dL 15.0-45.0 H 5381944303) UNSPUN BODY FLUID COLOR (test Colorless code = 8604438958) UNSPUN BODY FLUID CLARITY (test Clear code = 9710795931) SPUN BODY FLUID COLOR (test code Colorless = 9482225243) SPUN BODY FLUID CLARITY (test Clear code = 7084758354) Sediment (test code = No sediment. 3112863831) Lab Interpretation (test code = Abnormal 23631-4) [facility] Fluid [id number] 21:46:03 Test Item Value Reference Range Interpretation Comments T. PRO CSF (test code = 103.0 mg/dL 15.0-45.0 H 7271190549) UNSPUN BODY FLUID COLOR (test Colorless code = 0669162349) UNSPUN BODY FLUID CLARITY (test Clear code = 3719537998) SPUN BODY FLUID COLOR (test code Colorless = 0843023682) SPUN BODY FLUID CLARITY (test Clear code = 2210691643) Sediment (test code = No sediment. 0283726674) Lab Interpretation (test code = Abnormal 75140-3) [facility] METABOLIC PANEL (NA, K, CL, CO2, GLUCOSE, BUN, CREATININE, CA)2020-11-02 18:27:27 Test Item Value Reference Range Interpretation Comments NA (test code = 152 mmol/L 135-145 H 7393280616) K (test code = 3.8 mmol/L 3.5-5.0 1548827070) CL (test code = 123 mmol/L 98-108 H 8579284206) CO2 TOTAL (test code = 23 mmol/L 23-31 5023095022) AGAP (test code = 2-16 0894509673) BUN (test code = 49 mg/dL 7-23 H 9994679404) GLUCOSE (test code = 150 mg/dL 70-110 H 3923143838) CREATININE (test code = 1.37 mg/dL 0.60-1.25 H 3812872169) CALCIUM (test code = 7.9 mg/dL 8.6-10.6 L 3690645662) eGFR (test code = mL/min/1.73m2 8746267130) JUAN LUIS (test code = JUAN LUIS) [...] tests). Lab Interpretation Abnormal (test code = 68493-5) [facility] Test Item Value Reference Range Interpretation Comments MAGNESIUM (test code = 7668279432) 2.7 mg/dL 1.7-2.4 H Lab Interpretation (test code = Abnormal 43367-2) [facility]42:23 Test Item Value Reference Range Interpretation Comments MAGNESIUM (test code = 8827049911) 2.6 mg/dL 1.7-2.4 H Lab Interpretation (test code = Abnormal 66200-4) [facility] GLUCOSE (AUTOMATED)2020-11-02 16:39:58 Test Item Value Reference Range Interpretation Comments POCT GLU (test code = 2003104122) 148 mg/dL 70-110 H Lab Interpretation (test code = Abnormal 99177-5) [facility] GLUCOSE (AUTOMATED)2020-11-02 12:48:24 Test Item Value Reference Range Interpretation Comments POCT GLU (test code = 3367361633) 183 mg/dL 70-110 H Lab Interpretation (test code = Abnormal 87867-4) [facility] WITH [id number] 10:59:44 Test Item Value Reference Range Interpretation [...] (test code = 60.9 fL 38.5-51.6 H 44724-6) RDW-CV (test code = 22.7 % 12.1-15.4 H 788-0) PLT (test code = See_Comment L [Automated 777-3) message] The sy stem which generated this result transmitted reference range : 150 - 328 10*3/ ?L. The reference r christine was not used to interpret this result as normal/abnormal . MPV (test code = Not Measure d 36913-0) IPF % (test code = 9.7 % 1.2-10.7 Platelet count 6135685069) measured by fluorescence method. NRBC/100 WBC (test See_Comment [Automat ed code = 7935824252) message] The system which generated this result transmitted reference range : 0.0 - 10.0 /100 WBCs. The refer ence range was not u sed to interpret th is result as normal/abnormal . NRBC x10^3 (test code See_Comment [Auto mated = 0270587672) message] The s ystem which generated this result transmitted reference range : 10*3/?L. The reference range was not used to interpret this result as normal/abnormal . GRAN MAT (NEUT) % 81.9 % (test code = 770-8) IMM GRAN % (test code 0.80 % = 5753928027) LYMPH % (test code = 6.7 % 736-9) MONO % (test code = 8.4 % 5905-5) EOS % (test code = 2.0 % 713-8) BASO % (test code = 0.2 % 706-2) GRAN MAT x10^3(ANC) 11.65 10*3/uL 1.99-6.95 H (test code = 0147423358) IMM GRAN x10^3 (test 0.11 10*3/uL 0.00-0.06 H code = 5561134573) LYMPH x10^3 (test 0.96 10*3/uL 1.09-3.23 L code = 731-0) MONO x10^3 (test code 1.20 10*3/uL 0.36-1.02 H = 742-7) EOS x10^3 (test code 0.28 10*3/uL 0.06-0.53 = 711-2) BASO x10^3 (test code 0.03 10*3/uL 0.01-0.09 = 704-7) SCHISTOCYTES (test 1+ A code = 800-3) BANDS (test code = Increased A 4063976108) TOXIC CHANGES (test Present A code = 803-7) GIANT PLATELETS (test Present See_Comment A [Auto mated code = 5908-9) message] The system which generated this result transmitted reference range : (none). The reference range was not used to interpret this result as normal/abnormal . Lab Interpretation Abnormal (test code = 89838-8) [facility] METABOLIC PANEL (NA, K, CL, CO2, GLUCOSE, BUN, CREATININE, CA)2020-11-02 10:52:59 Test Item Value Reference Range Interpretation Comments NA (test code = 150 mmol/L 135-145 H 6190171429) K (test code = 4.0 mmol/L 3.5-5.0 0145529358) CL (test code = 121 mmol/L 98-108 H 8595161055) CO2 TOTAL (test code = 22 mmol/L 23-31 L 8322535998) AGAP (test code = 2-16 7379834332) BUN (test code = 49 mg/dL 7-23 H 9906930085) GLUCOSE (test code = 162 mg/dL 70-110 H 4288796266) CREATININE (test code = 1.42 mg/dL 0.60-1.25 H 8815415412) CALCIUM (test code = 7.8 mg/dL 8.6-10.6 L 1105035541) eGFR (test code = mL/min/1.73m2 2959199140) JUAN LUIS (test code = JUAN LUIS) [...] tests). Lab Interpretation Abnormal (test code = 63940-8) [facility] [id number] 07:23:16 Test Item Value Reference Range Interpretation Comments VIT B12 (test code = 956 pg/mL 240-930 H 7974459935) JUAN LUIS (test code = JUAN LUIS) Biotin has been reported to cause a positive bias, interpret results relative to patient's use of biotin. Lab Interpretation (test Abnormal code = 40781-5) [facility], [id number] 07:23:16 Test Item Value Reference Range Interpretation Comments VIT B12 (test code = 956 pg/mL 240-930 H 9714677508) JUAN LUIS (test code = JUAN LUIS) Biotin has been reported to cause a positive bias, interpret results relative to patient's use of biotin. Lab Interpretation (test Abnormal code = 20536-8) [facility], [id number] 07:23:16 Test Item Value Reference Range Interpretation Comments VIT B12 (test code = 956 pg/mL 240-930 H 3680228682) JUAN LUIS (test code = JUAN LUIS) Biotin has been reported to cause a positive bias, interpret results relative to patient's use of biotin. Lab Interpretation (test Abnormal code = 76954-5) [facility] 04:03:00 Test Item Value Reference Range Interpretation Comments FOLATE SER (test code = 8299732363) >20.0 3.0-20.0 H Lab Interpretation (test code = Abnormal 36055-8) [facility] 04:03:00 Test Item Value Reference Range Interpretation Comments FOLATE SER (test code = 8065748983) >20.0 3.0-20.0 H Lab Interpretation (test code = Abnormal 66623-9) [facility] 04:03:00 Test Item Value Reference Range Interpretation Comments FOLATE SER (test code = 4151894295) >20.0 3.0-20.0 H Lab Interpretation (test code = Abnormal 02748-0) [facility]2020-11-02 03:58:01 Test Item Value Reference Range Interpretation Comments POCT GLU (test code = 5591509942) 109 mg/dL 70-110 Lab Interpretation (test code = Normal 82166-4) [facility] [id number] 03:26:53 Test Item Value Reference Range Interpretation Comments TSH (test code = See_Comment Biotin has been 7349890174) reported to cau se a negative bias, interpret resul ts relative to pat ient's use of biotin. [Automated mess age] The system [employer] generated this result transmitted ref erence range: 0.45 - 4 .70 mIU/L. The refe rence range was not u sed to interpret this result as normal/abnor mal. Lab Interpretation (test Normal code = 65256-3) [facility] [id number] 03:26:53 Test Item Value Reference Range Interpretation Comments TSH (test code = See_Comment Biotin has been 3737659055) reported to cau se a negative bias, interpret resul ts relative to pat ient's use of biotin. [Automated mess age] The system [employer] generated this result transmitted ref erence range: 0.45 - 4 .70 mIU/L. The refe rence range was not u sed to interpret this result as normal/abnor mal. Lab Interpretation (test Normal code = 56604-7) [facility] [id number] 03:26:53 Test Item Value Reference Range Interpretation Comments TSH (test code = See_Comment Biotin has been 3160421049) reported to cau se a negative bias, interpret resul ts relative to pat ient's use of biotin. [Automated mess age] The system [employer] generated this result transmitted ref erence range: 0.45 - 4 .70 mIU/L. The refe rence range was not u sed to interpret this result as normal/abnor mal. Lab Interpretation (test Normal code = 93232-3) [facility] [id number] 01:01:36 Test Item Value Reference Range Interpretation Comments Blood Culture-Aerobic No organisms No growth Previo us (test code = 00917-3) isolated prelim inary verified result was Culture [...] Culture-Anaerobic isolated preliminar y (test code = 31886-5) verifi ed result was Culture In Progress [...] CDT Lab Interpretation Normal (test code = 10677-0) [facility] CULTURE [id number] 01:01:36 Test Item Value Reference Range Interpretation Comments Blood Culture-Aerobic No organisms No growth Previo us (test code = 69097-5) isolated prelim inary verified result was Culture [...] Culture-Anaerobic isolated preliminar y (test code = 93569-9) verifi ed result was Culture In Progress [...] CDT Lab Interpretation Normal (test code = 21468-7) [facility] CULTURE [id number] 01:01:36 Test Item Value Reference Range Interpretation Comments Blood Culture-Aerobic No organisms No growth Previo us (test code = 14388-4) isolated prelim inary verified result was Culture [...] Culture-Anaerobic isolated preliminar y (test code = 93761-2) verifi ed result was Culture In Progress [...] CDT Lab Interpretation Normal (test code = 46641-8) [facility] [id number] 01:01:36 Test Item Value Reference Range Interpretation Comments Blood Culture-Aerobic No organisms No growth Previo us (test code = 45001-3) isolated prelim inary verified result was Culture [...] Culture-Anaerobic isolated preliminar y (test code = 74007-4) verifi ed result was Culture In Progress [...] CDT Lab Interpretation Normal (test code = 02131-5) [facility]2020-11-02 00:43:35 Test Item Value Reference Range Interpretation Comments POCT GLU (test code = 2816511429) 204 mg/dL 70-110 H Lab Interpretation (test code = Abnormal 16909-5) [facility]uda[facility]roencephal[facility] (EEG) - Duration of test: 20-60 mins; Release to patient: [id number] 00:00:00Date and Time of Procedure: 11/02/2020, 8:47:43 [...] Lindsey Rose MD Date of int erpretation: 11/02/2020[facility] - Duration of test: 20-60 mins; Release to patient: [id number] 00:00:00Date and Time of Procedure: 11/02/2020, 8:47:43 [...] indicated. Lindsey Rose MD Date of interpretation: 11/02/2020[facility] ([facility]G) - Duration of test: 20-60 mins; Release to patient: [id number] 00:00:00Date and Time of Procedure: 11/02/2020, 8:47:43 [...] Lindsey Rose MD Date of int erpretation: [facility]02[facility]2020[facility] 2020-11-01 21:47:18 Test Item Value Reference Range Interpretation Comments POCT GLU (test code = 0437142591) 155 mg/dL 70-110 H Lab Interpretation (test code = Abnormal 39391-9) [facility] GLUCOSE (AUTOMATED)2020-11-01 21:00:48 Test Item Value Reference Range Interpretation Comments POCT GLU (test code = 5432841608) 149 mg/dL 70-110 H Lab Interpretation (test code = Abnormal 72444-1) [facility]AL[facility]2021-04-20 20:04:50 Test Item Value Reference Range Interpretation Comments Procalcitonin (test 0.24 ng/mL <0.07 H code = 6568645925) JUAN LUIS (test code = JUAN LUIS) [...] lung abscess/empyema. For further information please refer to:[email or web address] Lab Interpretation Abnormal (test code = 62805-5) [facility]AL[facility]IN2021-04-20 20:04:50 Test Item Value Reference Range Interpretation Comments Procalcitonin (test 0.24 ng/mL <0.07 H code = 7956710674) JUAN LUIS (test code = JUAN LUIS) [...] lung abscess/empyema. For further information please refer to:[email or web address] Lab Interpretation Abnormal (test code = 10022-2) [facility]2021-04-20 20:04:50 Test Item Value Reference Range Interpretation Comments Procalcitonin (test 0.24 ng/mL <0.07 H code = 9726917186) JUAN LUIS (test code = JUAN LUIS) [...] lung abscess/empyema. For further information please refer to:[email or web address] Lab Interpretation Abnormal (test code = 06786-4) [facility] METABOLIC PANEL (NA, K, CL, CO2, GLUCOSE, BUN, CREATININE, CA)2020-11-01 18:21:16 Test Item Value Reference Range Interpretation Comments NA (test code = 149 mmol/L 135-145 H 9554774269) K (test code = 3.9 mmol/L 3.5-5.0 9042956476) CL (test code = 121 mmol/L 98-108 H 3299746372) CO2 TOTAL (test code = 22 mmol/L 23-31 L 4707657324) AGAP (test code = 2-16 9639448230) BUN (test code = 47 mg/dL 7-23 H 3022660483) GLUCOSE (test code = 218 mg/dL 70-110 H 9466150764) CREATININE (test code = 1.42 mg/dL 0.60-1.25 H 6857692535) CALCIUM (test code = 7.6 mg/dL 8.6-10.6 L 0410890155) eGFR (test code = mL/min/1.73m2 4506123433) JUAN LUIS (test code = JUAN LUIS) [...] tests). Lab Interpretation Abnormal (test code = 06041-5) [facility] GLUCOSE (AUTOMATED)2020-11-01 17:04:41 Test Item Value Reference Range Interpretation Comments POCT GLU (test code = 6704088046) 246 mg/dL 70-110 H Lab Interpretation (test code = Abnormal 87691-3) [facility] GLUCOSE (AUTOMATED)2020-11-01 12:53:56 Test Item Value Reference Range Interpretation Comments POCT GLU (test code = 9708153411) 214 mg/dL 70-110 H Lab Interpretation (test code = Abnormal 18855-3) [facility] WITH [id number] 11:03:22 Test Item Value Reference Range Interpretation [...] (test code = 60.5 fL 38.5-51.6 H 38259-3) RDW-CV (test code = 22.5 % 12.1-15.4 H 788-0) PLT (test code = See_Comment L [Automated 777-3) message] The sy stem which generated this result transmitted reference range : 150 - 328 10*3/ ?L. The reference r christine was not used to interpret this result as normal/abnormal . MPV (test code = Not Measure d 49850-7) IPF % (test code = 6.1 % 1.2-10.7 Platelet count 6434474466) measured by fluorescence method. NRBC/100 WBC (test See_Comment [Automat ed code = 0864901178) message] The system which generated this result transmitted reference range : 0.0 - 10.0 /100 WBCs. The refer ence range was not u sed to interpret th is result as normal/abnormal . NRBC x10^3 (test code See_Comment [Auto mated = 1520700270) message] The s ystem which generated this result transmitted reference range : 10*3/?L. The reference range was not used to interpret this result as normal/abnormal . GRAN MAT (NEUT) % 83.1 % (test code = 770-8) IMM GRAN % (test code 1.00 % = 5579378887) LYMPH % (test code = 7.0 % 736-9) MONO % (test code = 6.7 % 5905-5) EOS % (test code = 2.0 % 713-8) BASO % (test code = 0.2 % 706-2) GRAN MAT x10^3(ANC) 12.96 10*3/uL 1.99-6.95 H (test code = 8573809827) IMM GRAN x10^3 (test 0.15 10*3/uL 0.00-0.06 H code = 2846603367) LYMPH x10^3 (test 1.09 10*3/uL 1.09-3.23 code = 731-0) MONO x10^3 (test code 1.05 10*3/uL 0.36-1.02 H = 742-7) EOS x10^3 (test code 0.31 10*3/uL 0.06-0.53 = 711-2) BASO x10^3 (test code 0.03 10*3/uL 0.01-0.09 = 704-7) SCHISTOCYTES (test 1+ A code = 800-3) TOXIC CHANGES (test Present A code = 803-7) Lab Interpretation Abnormal (test code = 21008-6) [facility] METABOLIC PANEL (NA, K, CL, CO2, GLUCOSE, BUN, CREATININE, CA)2020-11-01 10:58:55 Test Item Value Reference Range Interpretation Comments NA (test code = 151 mmol/L 135-145 H 8081685018) K (test code = 4.0 mmol/L 3.5-5.0 8580506839) CL (test code = 124 mmol/L 98-108 H 0038724011) CO2 TOTAL (test code = 22 mmol/L 23-31 L 7375990002) AGAP (test code = 2-16 0183289645) BUN (test code = 48 mg/dL 7-23 H 5779642766) GLUCOSE (test code = 201 mg/dL 70-110 H 7937216921) CREATININE (test code = 1.46 mg/dL 0.60-1.25 H 8600015015) CALCIUM (test code = 7.7 mg/dL 8.6-10.6 L 8552817843) eGFR (test code = mL/min/1.73m2 4712563487) JUAN LUIS (test code = JUAN LUIS) [...] tests). Lab Interpretation Abnormal (test code = 37265-2) [facility] GLUCOSE (AUTOMATED)2020-11-01 10:42:03 Test Item Value Reference Range Interpretation Comments POCT GLU (test code = 6390104225) 208 mg/dL 70-110 H Lab Interpretation (test code = Abnormal 86513-5) [facility] GLUCOSE (AUTOMATED)2020-11-01 08:18:28 Test Item Value Reference Range Interpretation Comments POCT GLU (test code = 3644621682) 218 mg/dL 70-110 H Lab Interpretation (test code = Abnormal 04539-9) [facility] (NA, K, CL, CO2, GLUCOSE, BUN, CREATININE, CA)2020-11-01 06:04:39 Test Item Value Reference Range Interpretation Comments NA (test code = 152 mmol/L 135-145 H 2815912847) K (test code = 4.0 mmol/L 3.5-5.0 3603853334) CL (test code = 123 mmol/L 98-108 H 1944772694) CO2 TOTAL (test code = 23 mmol/L 23-31 8653667619) AGAP (test code = 2-16 3889087961) BUN (test code = 49 mg/dL 7-23 H 5698480408) GLUCOSE (test code = 144 mg/dL 70-110 H 3517280924) CREATININE (test code = 1.47 mg/dL 0.60-1.25 H 9219295069) CALCIUM (test code = 7.9 mg/dL 8.6-10.6 L 4784981553) eGFR (test code = mL/min/1.73m2 5665644681) JUAN LUIS (test code = JUAN LUIS) [...] tests). Lab Interpretation Abnormal (test code = 31488-8) [facility] GLUCOSE (AUTOMATED)2020-11-01 05:17:31 Test Item Value Reference Range Interpretation Comments POCT GLU (test code = 3408462525) 137 mg/dL 70-110 H Lab Interpretation (test code = Abnormal 99753-5) [facility] GLUCOSE (AUTOMATED)2020-11-01 02:27:59 Test Item Value Reference Range Interpretation Comments POCT GLU (test code = 4713770292) 129 mg/dL 70-110 H Lab Interpretation (test code = Abnormal 16178-7) [facility] STROKE BRAIN WO [id number] 01:52:27 Within confines of motion degradation, no [...] sinus mucosal thickening. Bilateral mastoid air cellopacification. [facility], Radiant Results InftUser - 10/31/2020 8:53 PM [...] confines of motion degradation, no acute intracranial abnormality.[facility] STROKE BRAIN WO [id number] 01:52:27 Within confines of motion degradation, no [...] sinus mucosal thickening. Bilateral mastoid air cellopacification. [facility], Radiant Results InftUser - 10/31/2020 8:53 PM [...] confines of motion degradation, no acute intracranial abnormality.[facility] STROKE BRAIN WO [id number] 01:52:27 Within confines of motion degradation, no [...] sinus mucosal thickening. Bilateral mastoid air cellopacification. [facility], Radiant Results Inft User - 10/31/2020 8:53 [...] confines of motion degradation, no acute intracranial abnormality.[facility] GLUCOSE (AUTOMATED)2020-10-31 23:28:12 Test Item Value Reference Range Interpretation Comments POCT GLU (test code = 4482260345) 194 mg/dL 70-110 H Lab Interpretation (test code = Abnormal 95283-9) [facility] GLUCOSE (AUTOMATED)2020-10-31 16:44:35 Test Item Value Reference Range Interpretation Comments POCT GLU (test code = 9157361487) 230 mg/dL 70-110 H Lab Interpretation (test code = Abnormal 37997-4) [facility]uda[facility] CHEST 1 [id number] 13:11:08EXAM: XR CHEST 1 VW HISTORY: SOB COMPARISON: None. FINDINGS: The heart remains slightly enlarged tothe left. Hilar vascular congestionand interstitial and alveolar edema have increased considerably since themost recent previous image was obtained. The upper lungs are slightlycongested but otherwise clear. ? [facility], Radiant Results Inft User - 10/31/2020 8:12 AM CDTEXAM: XR CHEST 1 VWHISTORY: SOB COMPARISON: None.FINDINGS:The heart remains slightly enlarged to the left. Hilar vascular congestionand interstitial and alveolar edema have increased considerably since themost recent previous image was obtained. The upper lungs are slightlycongested but otherwise clear.[facility]udaXR CHEST 1 [id number] 13:11:08EXAM: XR CHEST 1 VW HISTORY: SOB [...] The upper lungs are slightlycongested but otherwise clear.[facility]uda[facility]AUTOMATED)2020-10-31 12:52:48 Test Item Value Reference Range Interpretation Comments POCT GLU (test code = 4643823632) 285 mg/dL 70-110 H Lab Interpretation (test code = Abnormal 55369-1) [facility]uda[facility]FILE / HEMOGRAM - 30 minutes after transfusion of each [id number] 11:57:20 Test Item Value Reference Range Interpretation Comments WBC (test code = See_Comment H [Automated message] 6690-2) The system [employer] generated this result transmitted ref erence range: 4.20 - 1 0.70 10*3/?L. The reference range was not used to int erpret this result as normal/abnormal . RBC (test code = 789-8) See_Comment L [Au tomated message] The system [employer] generated this result transmitted ref erence range: [...] See_Comment L [Au tomated message] The system [employer] generated this result transmitted ref erence range: 150 - 32 8 10*3/?L. The reference range was not used to int erpret this result as normal/abnormal . MPV (test code = Not Measure d 12082-5) RDW-CV (test code = 22.4 % 12.1-15.4 H 788-0) RDW-SD (test code = 61.0 fL 38.5-51.6 H 84062-0) NRBC x10^3 (test code = See_Comment [Au tomated message] 6451577286) The system [employer] generated this result transmitted ref erence range: 10*3/?L. The reference range was not used to int erpret this result as normal/abnormal . NRBC/100 WBC (test code See_Comment [Au tomated message] = 4789483107) The system [employer] generated this result transmitted ref erence range: 0.0 - 10 .0 /100 WBCs. The reference range was not used to int erpret this result as normal/abnormal . IPF % (test code = 6.6 % 1.2-10.7 Platelet count 8417901445) measured by fluorescence me thod. Lab Interpretation Abnormal (test code = 89487-0) [facility] Packed RBC (in units), 1 Units 2020-10-31 06:44:13 Test Item Value Reference Range Interpretation Comments Cross Match Result Compatible (test code = 4409) ISBT Blood Type Code (test code = 816910) Unit Blood Type (test A Pos code = 4410) Unit Number (test [id number] code = 4411) Blood Expiration Date & Time (test code = 467984) Status Information Issued (test code = 4412) Product Red Blood Cells Identification (test code = 4413) Product Code (test C6264I05 Performed at [facility] code = 4414) Laboratory Services - [facility] Blood [address] [place] [address]Zbrc Free: [phone] A No. [id number] [facility] Packed RBC (in units), 1 Units 2020-10-31 06:44:13 Test Item Value Reference Range Interpretation Comments Cross Match Result Compatible (test code = 4409) ISBT Blood Type Code (test code = 821507) Unit Blood Type (test A Pos code = 4410) Unit Number (test [id number] code = 4411) Blood Expiration Date & Time (test code = 983668) Status Information Issued (test code = 4412) Product Red Blood Cells Identification (test code = 4413) Product Code (test N5625P23 Performed at [facility] code = 4414) Laboratory Services [facility] Blood [address] s [address]Ohwy Free: [phone] A No. [id number] [facility] BudaPrepare Packed RBC (in units), 1 Units 2020-10-31 06:44:13 Test Item Value Reference Range Interpretation Comments Cross Match Result Compatible (test code = 4409) ISBT Blood Type Code (test code = 920623) Unit Blood Type (test A Pos code = 4410) Unit Number (test [id number] code = 4411) Blood Expiration Date & Time (test code = 889616) Status Information Issued (test code = 4412) Product Red Blood Cells Identification (test code = 4413) Product Code (test [id number] Performed at [facility] code = 4414) Laboratory [facility] Blood [address] [place] [address]Ersn Free: [phone] A No. [id number] [facility] BudaType and Screen - ONCE [id number] 06:28:19 Test Item Value Reference Range Interpretation Comments ABO & RH (test code A POSITIVE Performe d at [facility] = 20) Laboratory Serv [facility] Blood Bank3 [address] [facility] s [address]Iovl Free: [phone] A No. [id number] IAT (test code = Negative Performed a t [facility] 1185) Laboratory Serv [facility] Blood Bank3 [address] [facility] s [address]Uzzo Free: [phone] A No. [id number] [facility] BudaType and Screen - ONCE [id number] 06:28:19 Test Item Value Reference Range Interpretation Comments ABO & RH (test code A POSITIVE Performe d at [facility] = 20) Laboratory [facility] Blood Bank[address] [place] [address] s [address]Plne Free: [phone] A No. [id number] IAT (test code = Negative Performed a t [facility] 1185) Laboratory [facility] Blood [facility] [place] [address]Cxok Free: [phone] A No. [id number] [facility] and Screen - ONCE [id number] 06:28:19 Test Item Value Reference Range Interpretation Comments ABO & RH (test code A POSITIVE Performe d at [facility] = 20) Laboratory [facility] Blood [facility] [address] [place] [address]Attl Free: [phone] A No. [id number] IAT (test code = Negative Performed a t [facility] 1185) Laboratory [facility] Blood [facility] [address] [place] [address] s [address]Bvaf Free: [phone] A No. [id number] [facility]udaPOCT GLU[facility]SE (AUTOMATED)2020-10-31 05:36:57 Test Item Value Reference Range Interpretation Comments POCT GLU (test code = 1973290839) 242 mg/dL 70-110 H Lab Interpretation (test code = Abnormal 30622-1) [facility]udaMAGNESIUM2021-04-19 05:07:27 Test Item Value Reference Range Interpretation Comments MAGNESIUM (test code = 8836855912) 2.5 mg/dL 1.7-2.4 H Lab Interpretation (test code = Abnormal 30065-5) [facility] WITH [id number] 04:57:09 Test Item Value Reference Range Interpretation [...] (test code = 60.2 fL 38.5-51.6 H 89090-0) RDW-CV (test code = 22.7 % 12.1-15.4 H 788-0) PLT (test code = See_Comment L [Automated 777-3) message] The sy stem which generated this result transmitted reference range : 150 - 328 10*3/ ?L. The reference r christine was not used to interpret this result as normal/abnormal . MPV (test code = Not Measure d 92368-1) IPF % (test code = 3.4 % 1.2-10.7 Platelet count 7114804877) measured by fluorescence method. NRBC/100 WBC (test See_Comment [Automat ed code = 2861963732) message] The system which generated this result transmitted reference range : 0.0 - 10.0 /100 WBCs. The refer ence range was not u sed to interpret th is result as normal/abnormal . NRBC x10^3 (test code <0.01 See_Comment [Auto mated = 7386443821) message] The s ystem which generated this result transmitted reference range : 10*3/?L. The reference range was not used to interpret this result as normal/abnormal . GRAN MAT (NEUT) % 82.8 % (test code = 770-8) IMM GRAN % (test code 1.10 % = 1223733882) LYMPH % (test code = 7.8 % 736-9) MONO % (test code = 7.0 % 5905-5) EOS % (test code = 1.2 % 713-8) BASO % (test code = 0.1 % 706-2) GRAN MAT x10^3(ANC) 11.75 10*3/uL 1.99-6.95 H (test code = 4967123087) IMM GRAN x10^3 (test 0.16 10*3/uL 0.00-0.06 H code = 7887557769) LYMPH x10^3 (test 1.10 10*3/uL 1.09-3.23 code = 731-0) MONO x10^3 (test code 0.99 10*3/uL 0.36-1.02 = 742-7) EOS x10^3 (test code 0.17 10*3/uL 0.06-0.53 = 711-2) BASO x10^3 (test code <0.03 0.01-0.09 = 704-7) SCHISTOCYTES (test 1+ A code = 800-3) Lab Interpretation Abnormal (test code = 53864-9) [facility] (for use with Heparin Drip)2020-10-31 04:49:42 Test Item Value Reference Range Interpretation Comments APTT Patient (test code See_Comment H [Au tomated message] = 3173-2) The system [employer] generated this result transmitted ref erence range: 26 - 36 Seconds. The reference range was not used to int erpret this result as normal/abnormal . Lab Interpretation (test Abnormal code = 47905-6) [facility] (for use with Heparin Drip)2020-10-31 04:49:42 Test Item Value Reference Range Interpretation Comments APTT Patient (test code See_Comment H [Au tomated message] = 3173-2) The system [employer] generated this result transmitted ref erence range: 26 - 36 Seconds. The reference range was not used to int erpret this result as normal/abnormal . Lab Interpretation (test Abnormal code = 76691-0) [facility] (for use with Heparin Drip)2020-10-31 04:49:42 Test Item Value Reference Range Interpretation Comments APTT Patient (test code See_Comment H [Au tomated message] = 3173-2) The system [employer] generated this result transmitted ref erence range: 26 - 36 Seconds. The reference range was not used to int erpret this result as normal/abnormal . Lab Interpretation (test Abnormal code = 48761-0) [facility] METABOLIC PANEL (NA, K, CL, CO2, GLUCOSE, BUN, CREATININE, CA)2020-10-31 04:34:49 Test Item Value Reference Range Interpretation Comments NA (test code = 151 mmol/L 135-145 H 6506434212) K (test code = 3.9 mmol/L 3.5-5.0 2696199342) CL (test code = 124 mmol/L 98-108 H 6479522897) CO2 TOTAL (test code = 22 mmol/L 23-31 L 3020093012) AGAP (test code = 2-16 1943239786) BUN (test code = 52 mg/dL 7-23 H 2225552650) GLUCOSE (test code = 212 mg/dL 70-110 H 5189686591) CREATININE (test code = 1.44 mg/dL 0.60-1.25 H 1763479953) CALCIUM (test code = 8.0 mg/dL 8.6-10.6 L 6727217904) eGFR (test code = mL/min/1.73m2 3813379143) JUAN LUIS (test code = JUAN LUIS) [...] tests). Lab Interpretation Abnormal (test code = 01044-2) [facility] GLUCOSE (AUTOMATED)2020-10-31 01:46:55 Test Item Value Reference Range Interpretation Comments POCT GLU (test code = 4449772713) 259 mg/dL 70-110 H Lab Interpretation (test code = Abnormal 24183-6) [facility] GLUCOSE (AUTOMATED)2020-10-30 22:14:20 Test Item Value Reference Range Interpretation Comments POCT GLU (test code = 6712711876) 317 mg/dL 70-110 H Lab Interpretation (test code = Abnormal 34201-1) [facility]2021-04-18 20:38:02 Test Item Value Reference Range Interpretation Comments MAGNESIUM (test code = 4419417476) 2.4 mg/dL 1.7-2.4 Lab Interpretation (test code = Normal 92624-2) [facility] GLUCOSE (AUTOMATED)2020-10-30 19:46:18 Test Item Value Reference Range Interpretation Comments POCT GLU (test code = 6483857038) 374 mg/dL 70-110 H Lab Interpretation (test code = Abnormal 14208-7) [facility]for use with Heparin Drip)2020-10-30 17:27:09 Test Item Value Reference Range Interpretation Comments APTT Patient (test code See_Comment H [Au tomated message] = 3173-2) The system [employer] generated this result transmitted ref erence range: 26 - 36 Seconds. The reference range was not used to int erpret this result as normal/abnormal . Lab Interpretation (test Abnormal code = 20852-9) [facility] GLUCOSE (AUTOMATED)2020-10-30 17:07:11 Test Item Value Reference Range Interpretation Comments POCT GLU (test code = 6637715700) 368 mg/dL 70-110 H Lab Interpretation (test code = Abnormal 88409-6) [facility] METABOLIC PANEL (NA, K, CL, CO2, GLUCOSE, BUN, CREATININE, CA)2020-10-30 14:34:56 Test Item Value Reference Range Interpretation Comments NA (test code = 148 mmol/L 135-145 H 3400568468) K (test code = 4.1 mmol/L 3.5-5.0 5865438237) CL (test code = 122 mmol/L 98-108 H 6719009378) CO2 TOTAL (test code = 20 mmol/L 23-31 L 5122909642) AGAP (test code = 2-16 2062588320) BUN (test code = 51 mg/dL 7-23 H 0535061481) GLUCOSE (test code = 343 mg/dL 70-110 H 9427315931) CREATININE (test code = 1.43 mg/dL 0.60-1.25 H 8331451844) CALCIUM (test code = 8.1 mg/dL 8.6-10.6 L 0901046877) eGFR (test code = mL/min/1.73m2 6746252038) JUAN LUIS (test code = JUAN LUIS) [...] tests). Lab Interpretation Abnormal (test code = 55852-3) [facility] WITHOUT [id number] 14:10:28 Test Item Value Reference Range Interpretation Comments WBC (test code = See_Comment H [Automated message] 2890-2) The system [employer] generated this result transmitted ref erence range: 4.20 - 1 0.70 10*3/?L. The reference range was not used to int erpret this result as normal/abnormal . RBC (test code = 789-8) See_Comment L [Au tomated message] The system [employer] generated this result transmitted ref erence range: [...] See_Comment L [Au tomated message] The system [employer] generated this result transmitted ref erence range: 150 - 32 8 10*3/?L. The reference range was not used to int erpret this result as normal/abnormal . MPV (test code = Not Measure d 42438-1) RDW-CV (test code = 22.8 % 12.1-15.4 H 788-0) RDW-SD (test code = 60.3 fL 38.5-51.6 H 56729-2) NRBC x10^3 (test code = <0.01 See_Comment [Au tomated message] 4058349591) The system [employer] h generated this result transmitted ref erence range: 10*3/?L. The reference range was not used to int erpret this result as normal/abnormal . NRBC/100 WBC (test code See_Comment [Au tomated message] = 7060903066) The system [employer] ch generated this result transmitted ref erence range: 0.0 - 10 .0 /100 WBCs. The reference range was not used to int erpret this result as normal/abnormal . IPF % (test code = 3.9 % 1.2-10.7 Platelet count 4753865024) measured by fluorescence me thod. Lab Interpretation Abnormal (test code = 24385-2) [facility] GLUCOSE (AUTOMATED)2020-10-30 12:43:30 Test Item Value Reference Range Interpretation Comments POCT GLU (test code = 4241894322) 350 mg/dL 70-110 H Lab Interpretation (test code = Abnormal 36085-1) [facility] GLUCOSE (AUTOMATED)2020-10-30 09:35:03 Test Item Value Reference Range Interpretation Comments POCT GLU (test code = 4137719461) 302 mg/dL 70-110 H Lab Interpretation (test code = Abnormal 69725-5) [facility] GLUCOSE (AUTOMATED)2020-10-30 06:24:42 Test Item Value Reference Range Interpretation Comments POCT GLU (test code = 5299130277) 280 mg/dL 70-110 H Lab Interpretation (test code = Abnormal 87902-1) [facility] WITH [id number] 06:22:16 Test Item Value Reference Range Interpretation Comments WBC (test code = See_Comment H [Automated 8590-2) message] The sy stem which generated this result transmitted reference range : 4.20 - 10.70 10*3/?L. The reference range was not used to interpret this result as normal/abnormal . RBC (test code = See_Comment L [Automated 439-8) message] The sy stem which generated this [...] (test code = 60.6 fL 38.5-51.6 H 23091-6) RDW-CV (test code = 22.7 % 12.1-15.4 H 788-0) PLT (test code = See_Comment L [Automated 777-3) message] The sy stem which generated this result transmitted reference range : 150 - 328 10*3/ ?L. The reference r christine was not used to interpret this result as normal/abnormal . MPV (test code = 12.3 fL 9.8-13.0 44772-5) IPF % (test code = 2.3 % 1.2-10.7 Platelet count 7405974697) measured by fluorescence method. NRBC/100 WBC (test See_Comment [Automat ed code = 2358360472) message] The system which generated this result transmitted reference range : 0.0 - 10.0 /100 WBCs. The refer ence range was not u sed to interpret th is result as normal/abnormal . NRBC x10^3 (test code <0.01 See_Comment [Auto mated = 0553824206) message] The s ystem which generated this result transmitted reference range : 10*3/?L. The reference range was not used to interpret this result as normal/abnormal . GRAN MAT (NEUT) % 83.1 % (test code = 770-8) IMM GRAN % (test code 1.70 % = 5244923631) LYMPH % (test code = 7.7 % 736-9) MONO % (test code = 6.6 % 5905-5) EOS % (test code = 0.6 % 713-8) BASO % (test code = 0.3 % 706-2) GRAN MAT x10^3(ANC) 12.88 10*3/uL 1.99-6.95 H (test code = 8234647903) IMM GRAN x10^3 (test 0.26 10*3/uL 0.00-0.06 H code = 1601448994) LYMPH x10^3 (test 1.19 10*3/uL 1.09-3.23 code [...] 803-7) Lab Interpretation Abnormal (test code = 67398-6) [facility]2020[facility]30 05:58:19 Test Item Value Reference Range Interpretation Comments APTT Patient (test code See_Comment H [Au tomated message] = 3173-2) The system [employer] generated this result transmitted ref erence range: 26 - 36 Seconds. The reference range was not used to int erpret this result as normal/abnormal . Lab Interpretation (test Abnormal code = 66757-0) [facility] (NA, K, CL, CO2, GLUCOSE, BUN, CREATININE, CA)2020-10-30 05:54:18 Test Item Value Reference Range Interpretation Comments NA (test code = 150 mmol/L 135-145 H 6596813518) K (test code = 3.8 mmol/L 3.5-5.0 3856933368) CL (test code = 122 mmol/L 98-108 H 3472557124) CO2 TOTAL (test code = 20 mmol/L 23-31 L 4139385800) AGAP (test code = 2-16 9263905325) BUN (test code = 49 mg/dL 7-23 H 7765985673) GLUCOSE (test code = 261 mg/dL 70-110 H 3656088656) CREATININE (test code = 1.40 mg/dL 0.60-1.25 H 9525724603) CALCIUM (test code = 8.2 mg/dL 8.6-10.6 L 1107204960) eGFR (test code = mL/min/1.73m2 4194589295) JUAN LUIS (test code = JUAN LUIS) [...] tests). Lab Interpretation Abnormal (test code = 34225-3) [facility] 05:53:53 Test Item Value Reference Range Interpretation Comments MAGNESIUM (test code = 3201576752) 2.5 mg/dL 1.7-2.4 H Lab Interpretation (test code = Abnormal 83494-1) [facility] GLUCOSE (AUTOMATED)2020-10-30 03:26:07 Test Item Value Reference Range Interpretation Comments POCT GLU (test code = 7890674221) 246 mg/dL 70-110 H Lab Interpretation (test code = Abnormal 64015-1) [facility] GLUCOSE (AUTOMATED)2020-10-30 00:46:09 Test Item Value Reference Range Interpretation Comments POCT GLU (test code = 3878889854) 238 mg/dL 70-110 H Lab Interpretation (test code = Abnormal 02338-4) [facility] Heparin Drip[facility]2020-10-29 23:13:49 Test Item Value Reference Range Interpretation Comments APTT Patient (test code See_Comment H [Au tomated message] = 3173-2) The system [employer] generated this result transmitted ref erence range: 26 - 36 Seconds. The reference range was not used to int erpret this result as normal/abnormal . Lab Interpretation (test Abnormal code = 11209-4) [facility] GLUCOSE (AUTOMATED)2020-10-29 22:25:56 Test Item Value Reference Range Interpretation Comments POCT GLU (test code = 2988646676) 243 mg/dL 70-110 H Lab Interpretation (test code = Abnormal 75434-3) [facility] 20:59:19 Test Item Value Reference Range Interpretation Comments MAGNESIUM (test code = 4765747577) 2.4 mg/dL 1.7-2.4 Lab Interpretation (test code = Normal 66745-4) [facility] METABOLIC PANEL (NA, K, CL, CO2, GLUCOSE, BUN, CREATININE, CA)2020-10-29 20:41:28 Test Item Value Reference Range Interpretation Comments NA (test code = 150 mmol/L 135-145 H 4411920237) K (test code = 4.0 mmol/L 3.5-5.0 3948369156) CL (test code = 123 mmol/L 98-108 H 1969862950) CO2 TOTAL (test code = 19 mmol/L 23-31 L 2687248476) AGAP (test code = 2-16 5168749886) BUN (test code = 49 mg/dL 7-23 H 6982649523) GLUCOSE (test code = 197 mg/dL 70-110 H 6201880558) CREATININE (test code = 1.35 mg/dL 0.60-1.25 H 4178079324) CALCIUM (test code = 8.6 mg/dL 8.6-10.6 1378905195) eGFR (test code = mL/min/1.73m2 9371475794) JUAN LUIS (test code = JUAN LUIS) [...] tests). Lab Interpretation Abnormal (test code = 66812-2) [facility] GLUCOSE (AUTOMATED)2020-10-29 19:13:21 Test Item Value Reference Range Interpretation Comments POCT GLU (test code = 5120101173) 196 mg/dL 70-110 H Lab Interpretation (test code = Abnormal 06534-4) [facility] GLUCOSE (AUTOMATED)2020-10-29 16:28:35 Test Item Value Reference Range Interpretation Comments POCT GLU (test code = 3272000812) 192 mg/dL 70-110 H Lab Interpretation (test code = Abnormal 42904-3) [facility] MSSA Screen by Britney [id number] 16:25:18 Test Item Value Reference Range Interpretation Comments MSSA Screen by PCR, Nares (test code Negative Negative = 38521-3) MRSA/MSSA Positive? (test code = No No 6628882673) Lab Interpretation (test code = Normal 14598-7) [facility] MSSA Screen by PCR, [id number] 16:25:18 Test Item Value Reference Range Interpretation Comments MSSA Screen by PCR, Nares (test code Negative Negative = 72916-1) MRSA/MSSA Positive? (test code = No No 2426503457) Lab Interpretation (test code = Normal 90926-4) [facility] MSSA Screen by PCR, [id number] 16:25:18 Test Item Value Reference Range Interpretation Comments MSSA Screen by PCR, Nares (test code Negative Negative = 29625-9) MRSA/MSSA Positive? (test code = No No 3436869160) Lab Interpretation (test code = Normal 56177-2) [facility]udaTROP[facility]IN [id number] 16:18:19 Test Item Value Reference Range Interpretation Comments TROPONIN I (test 0.397 ng/mL See_Comment H [Automated code = 0570734901) message] The system which generated this result [...] ? Lab Interpretation Abnormal (test code = 15702-9) [facility] [id number] 16:18:19 Test Item Value Reference Range Interpretation Comments TROPONIN I (test 0.397 ng/mL See_Comment H [Automated code = 0285811750) message] The system which generated this result [...] ? Lab Interpretation Abnormal (test code = 27513-1) [facility] [id number] 16:18:19 Test Item Value Reference Range Interpretation Comments TROPONIN I (test 0.397 ng/mL See_Comment H [Automated code = 7278559801) message] The system which generated this result [...] ? Lab Interpretation Abnormal (test code = 12483-2) [facility] (NA, K, CL, CO2, GLUCOSE, BUN, CREATININE, CA)2020-10-29 16:17:03 Test Item Value Reference Range Interpretation Comments NA (test code = 152 mmol/L 135-145 H 2475262310) K (test code = 4.2 mmol/L 3.5-5.0 3992884276) CL (test code = 124 mmol/L 98-108 H 0412374014) CO2 TOTAL (test code = 21 mmol/L 23-31 L 0478356459) AGAP (test code = 2-16 0364932256) BUN (test code = 49 mg/dL 7-23 H 2204292296) GLUCOSE (test code = 173 mg/dL 70-110 H 4368864466) CREATININE (test code = 1.34 mg/dL 0.60-1.25 H 9676068599) CALCIUM (test code = 8.8 mg/dL 8.6-10.6 4252390025) eGFR (test code = mL/min/1.73m2 8762658827) JUAN LUIS (test code = JUAN LUIS) [...] tests). Lab Interpretation Abnormal (test code = 67832-9) [facility] 15:37:55 Test Item Value Reference Range Interpretation Comments APTT Patient (test code See_Comment L [Au tomated message] = 3173-2) The system [employer] generated this result transmitted ref erence range: 26 - 36 Seconds. The reference range was not used to int erpret this result as normal/abnormal . Lab Interpretation (test Abnormal code = 74895-2) [facility]udaURINE [id number] 14:00:01 Test Item Value Reference Range Interpretation Comments URINE CULTURE (test No aerobic growth (< code = 630-4) 1000 CFU/mL) [facility]2020-10-29 12:55:31 Test Item Value Reference Range Interpretation Comments POCT GLU (test code = 8267066548) 185 mg/dL 70-110 H Lab Interpretation (test code = Abnormal 95833-6) [facility]udaXR BONE [id number] 11:47:44 Metallic linear foreign body over the [...] left ring finger metacarpalconsidered safe for MR imaging.[facility] BudaXR BONE [id number] 11:47:44 Metallic linear foreign body over the [...] left ring finger metacarpalconsidered safe for MR imaging.[facility]udaXR BONE [id number] 11:47:44 Metallic linear foreign body over the [...] left ring finger metacarpalconsidered safe for MR imaging.[facility] BudaBRADY [id number] 08:59:20 Test Item Value Reference Range Interpretation Comments TROPONIN I (test 0.426 ng/mL See_Comment H [Automated code = 3950081970) message] The system which generated this result [...] ? Lab Interpretation Abnormal (test code = 53540-6) [facility] WITH [id number] 08:54:03 Test Item Value Reference Range Interpretation [...] (test code = 59.0 fL 38.5-51.6 H 10635-2) RDW-CV (test code = 22.5 % 12.1-15.4 H 788-0) PLT (test code = See_Comment L [Automated 777-3) message] The sy stem which generated this result transmitted reference range : 150 - 328 10*3/ ?L. The reference r christine was not used to interpret this result as normal/abnormal . MPV (test code = 11.2 fL 9.8-13.0 92165-1) IPF % (test code = 2.4 % 1.2-10.7 Platelet count 7269217936) measured by fluorescence method. NRBC/100 WBC (test See_Comment [Automat ed code = 7368710022) message] The system which generated this result transmitted reference range : 0.0 - 10.0 /100 WBCs. The refer ence range was not u sed to interpret th is result as normal/abnormal . NRBC x10^3 (test code <0.01 See_Comment [Auto mated = 3992108968) message] The s ystem which generated this result transmitted reference range : 10*3/?L. The reference range was not used to interpret this result as normal/abnormal . GRAN MAT (NEUT) % 76.4 % (test code = 770-8) IMM GRAN % (test code 3.00 % = 9398506846) LYMPH % (test code = 10.3 % 736-9) MONO % (test code = 9.1 % 5905-5) EOS % (test code = 0.8 % 713-8) BASO % (test code = 0.4 % 706-2) GRAN MAT x10^3(ANC) 9.02 10*3/uL 1.99-6.95 H (test code = 0209169283) IMM GRAN x10^3 (test 0.36 10*3/uL 0.00-0.06 H code = 3040540707) LYMPH x10^3 (test code 1.22 10*3/uL 1.09-3.23 = 731-0) MONO x10^3 (test code 1.08 10*3/uL 0.36-1.02 H = 742-7) EOS x10^3 (test code = 0.10 10*3/uL 0.06-0.53 711-2) BASO x10^3 (test code 0.05 10*3/uL 0.01-0.09 = 704-7) SCHISTOCYTES (test 1+ A code = 800-3) Lab Interpretation Abnormal (test code = 08982-1) [facility] METABOLIC PANEL (NA, K, CL, CO2, GLUCOSE, BUN, CREATININE, CA)2020-10-29 08:46:24 Test Item Value Reference Range Interpretation Comments NA (test code = 155 mmol/L 135-145 H 8879088978) K (test code = 4.4 mmol/L 3.5-5.0 7748639725) CL (test code = 126 mmol/L 98-108 H 9120483440) CO2 TOTAL (test code = 22 mmol/L 23-31 L 8213835409) AGAP (test code = 2-16 5908152847) BUN (test code = 50 mg/dL 7-23 H 8384883019) GLUCOSE (test code = 177 mg/dL 70-110 H 7886884144) CREATININE (test code = 1.29 mg/dL 0.60-1.25 H 2712478119) CALCIUM (test code = 8.6 mg/dL 8.6-10.6 6535345840) eGFR (test code = mL/min/1.73m2 2332372998) JUAN LUIS (test code = JUAN LUIS) [...] tests). Lab Interpretation Abnormal (test code = 78376-3) [facility]2020-10-29 07:10:56 Test Item Value Reference Range Interpretation Comments POCT GLU (test code = 8966048291) 175 mg/dL 70-110 H Lab Interpretation (test code = Abnormal 97313-3) [facility]uda[facility]OP[facility] [id number] 04:16:10 Test Item Value Reference Range Interpretation Comments TROPONIN I (test 0.454 ng/mL See_Comment H [Automated code = 0899698917) message] The system which generated this result [...] ? Lab Interpretation Abnormal (test code = 23339-6) [facility] WITH [id number] 04:14:28 Test Item Value Reference Range Interpretation [...] (test code = 57.0 fL 38.5-51.6 H 56454-2) RDW-CV (test code = 22.1 % 12.1-15.4 H 788-0) PLT (test code = See_Comment L [Automated 777-3) message] The sy stem which generated this result transmitted reference range : 150 - 328 10*3/ ?L. The reference r christine was not used to interpret this result as normal/abnormal . MPV (test code = Not Measure d 45362-9) IPF % (test code = 2.1 % 1.2-10.7 Platelet count 7115123102) measured by fluorescence method. NRBC/100 WBC (test See_Comment [Automat ed code = 4435894519) message] The system which generated this result transmitted reference range : 0.0 - 10.0 /100 WBCs. The refer ence range was not u sed to interpret th is result as normal/abnormal . NRBC x10^3 (test code <0.01 See_Comment [Auto mated = 1824925051) message] The s ystem which generated this result transmitted reference range : 10*3/?L. The reference range was not used to interpret this result as normal/abnormal . GRAN MAT (NEUT) % 74.8 % (test code = 770-8) IMM GRAN % (test code 2.80 % = 1290019177) LYMPH % (test code = 10.9 % 736-9) MONO % (test code = 10.4 % 5905-5) EOS % (test code = 0.7 % 713-8) BASO % (test code = 0.4 % 706-2) GRAN MAT x10^3(ANC) 8.42 10*3/uL 1.99-6.95 H (test code = 8140290861) IMM GRAN x10^3 (test 0.31 10*3/uL 0.00-0.06 H code = 5056763940) LYMPH x10^3 (test code 1.23 10*3/uL 1.09-3.23 = 731-0) MONO x10^3 (test code 1.17 10*3/uL 0.36-1.02 H = 742-7) EOS x10^3 (test code = 0.08 10*3/uL 0.06-0.53 711-2) BASO x10^3 (test code 0.04 10*3/uL 0.01-0.09 = 704-7) BASO STIPPLING (test Present A code = 703-9) SCHISTOCYTES (test 1+ A code = 800-3) Lab Interpretation Abnormal (test code = 15227-4) [facility] METABOLIC PANEL (NA, K, CL, CO2, GLUCOSE, BUN, CREATININE, CA)2020-10-29 04:00:13 Test Item Value Reference Range Interpretation Comments NA (test code = 154 mmol/L 135-145 H 5542645603) K (test code = 3.0 mmol/L 3.5-5.0 L 5180539867) CL (test code = 125 mmol/L 98-108 H 3656279568) CO2 TOTAL (test code = 20 mmol/L 23-31 L 2133803493) AGAP (test code = 2-16 3443902744) BUN (test code = 50 mg/dL 7-23 H 1313260602) GLUCOSE (test code = 144 mg/dL 70-110 H 4442303547) CREATININE (test code = 1.36 mg/dL 0.60-1.25 H 2507060777) CALCIUM (test code = 8.8 mg/dL 8.6-10.6 6888996268) eGFR (test code = mL/min/1.73m2 1119380979) JUAN LUIS (test code = JUAN LUIS) [...] tests). Lab Interpretation Abnormal (test code = 48686-4) [facility] 03:58:47 Test Item Value Reference Range Interpretation Comments MAGNESIUM (test code = 8013148462) 2.5 mg/dL 1.7-2.4 H Lab Interpretation (test code = Abnormal 68946-2) [facility]OMATED)2020-10-29 03:58:47 Test Item Value Reference Range Interpretation Comments POCT GLU (test code = 6568440994) 134 mg/dL 70-110 H Lab Interpretation (test code = Abnormal 24942-8) [facility]uda[facility]IBRINOGEN2021-04-17 03:39:08 Test Item Value Reference Range Interpretation Comments Fibrinogen (test code = 5574253147) 441 mg/dL 167-453 Lab Interpretation (test code = Normal 61584-0) [facility] BudaPROTHROMBIN TIME / [id number] 03:39:08 Test Item Value Reference Range Interpretation [...] tions. Lab Interpretation (test Abnormal code = 95258-2) [facility]2021-04-17 03:39:08 Test Item Value Reference Range Interpretation Comments Fibrinogen (test code = 4114145972) 441 mg/dL 167-453 Lab Interpretation (test code = Normal 28483-0) [facility]2021-04-17 03:39:08 Test Item Value Reference Range Interpretation Comments Fibrinogen (test code = 7571368684) 441 mg/dL 167-453 Lab Interpretation (test code = Normal 71997-5) [facility]udaAC PAN[facility] + LACTIC [id number] 03:20:11 Test Item Value Reference Range Interpretation Comments PH (test code = 2) 7.35-7.45 H PCO2 (test code = See_Comment L [Automat ed 3909111628) message] The sy stem which generated this result transmitted reference range : 35 - 45 mmHg. The reference range was not used to interpret this result as normal/abnormal . PO2 (test code = See_Comment H [Automated 1020820676) message] The sy stem which generated this result transmitted reference range : 80 - 100 mmHg. The reference range was not used to interpret this result as normal/abnormal . HCO3 (test code = See_Comment [Automate d 7624614338) message] The sy stem which generated this result transmitted reference range : 22 - 26 mEq/L. The reference range was not used to interpret this result as normal/abnormal . BE (test code = See_Comment [Automated 6598869830) message] The sy stem which generated this result transmitted reference range : -3.0 - 3.0 mEq/ L. The reference r christine was not used to interpret this result as normal/abnormal . THB (test code = 9.3 g/dL 13.5-18.0 L 4396771598) %O2HB (test code = 97.5 % 94.0-99.0 0778660000) %COHB ART (test code = 0.3 % 0.0-1.5 1948080731) %METHB ART (test code = 0.3 % 0.4-1.5 L 6540942239) VOL%O2 ART (test code = 12.9 % 15.0-23.0 L 1856232872) NA (test code = 152 mmol/L 135-145 H 3929071664) K+ (test code = 3.0 mmol/L 3.5-5.0 L 0917287468) AC CA IONZ (test code = 5.00 mg/dL 4.50-5.30 6477153296) GLUCOSE (test code = 142 mg/dL 70-110 H 5080837523) LACTIC ACID (test code 1.59 mmol/L 0.50-2.20 = 1463192283) Lab Interpretation Abnormal (test code = 65844-3) [facility] + LACTIC [id number] 03:20:11 Test Item Value Reference Range Interpretation Comments PH (test code = 2) 7.35-7.45 H PCO2 (test code = See_Comment L [Automat ed 5293594307) message] The sy stem which generated this result transmitted reference range : 35 - 45 mmHg. The reference range was not used to interpret this result as normal/abnormal . PO2 (test code = See_Comment H [Automated 1919001007) message] The sy stem which generated this result transmitted reference range : 80 - 100 mmHg. The reference range was not used to interpret this result as normal/abnormal . HCO3 (test code = See_Comment [Automate d 2752722026) message] The sy stem which generated this result transmitted reference range : 22 - 26 mEq/L. The reference range was not used to interpret this result as normal/abnormal . BE (test code = See_Comment [Automated 6876173674) message] The sy stem which generated this result transmitted reference range : -3.0 - 3.0 mEq/ L. The reference r christine was not used to interpret this result as normal/abnormal . THB (test code = 9.3 g/dL 13.5-18.0 L 9691606812) %O2HB (test code = 97.5 % 94.0-99.0 9946963512) %COHB ART (test code = 0.3 % 0.0-1.5 9269059934) %METHB ART (test code = 0.3 % 0.4-1.5 L 9537172558) VOL%O2 ART (test code = 12.9 % 15.0-23.0 L 7240056753) NA (test code = 152 mmol/L 135-145 H 7105329555) K+ (test code = 3.0 mmol/L 3.5-5.0 L 3395583270) AC CA IONZ (test code = 5.00 mg/dL 4.50-5.30 7509788777) GLUCOSE (test code = 142 mg/dL 70-110 H 9436823389) LACTIC ACID (test code 1.59 mmol/L 0.50-2.20 = 7992621552) Lab Interpretation Abnormal (test code = 40625-9) [facility] + LACTIC [id number] 03:20:11 Test Item Value Reference Range Interpretation Comments PH (test code = 2) 7.35-7.45 H PCO2 (test code = See_Comment L [Automat ed 8043846760) message] The sy stem which generated this result transmitted reference range : 35 - 45 mmHg. The reference range was not used to interpret this result as normal/abnormal . PO2 (test code = See_Comment H [Automated 4612563126) message] The sy stem which generated this result transmitted reference range : 80 - 100 mmHg. The reference range was not used to interpret this result as normal/abnormal . HCO3 (test code = See_Comment [Automate d 8272798923) message] The sy stem which generated this result transmitted reference range : 22 - 26 mEq/L. The reference range was not used to interpret this result as normal/abnormal . BE (test code = See_Comment [Automated 7493642435) message] The sy stem which generated this result transmitted reference range : -3.0 - 3.0 mEq/ L. The reference r christine was not used to interpret this result as normal/abnormal . THB (test code = 9.3 g/dL 13.5-18.0 L 8535019635) %O2HB (test code = 97.5 % 94.0-99.0 3104191896) %COHB ART (test code = 0.3 % 0.0-1.5 4928794602) %METHB ART (test code = 0.3 % 0.4-1.5 L 4166135871) VOL%O2 ART (test code = 12.9 % 15.0-23.0 L 8642370742) NA (test code = 152 mmol/L 135-145 H 0529657381) K+ (test code = 3.0 mmol/L 3.5-5.0 L 7859300998) AC CA IONZ (test code = 5.00 mg/dL 4.50-5.30 8585798885) GLUCOSE (test code = 142 mg/dL 70-110 H 2656991337) LACTIC ACID (test code 1.59 mmol/L 0.50-2.20 = [id number]) Lab Interpretation Abnormal (test code = 79822-3) [facility] [id number] 03:20:06 No acute intracranial hemorrhage or mass effect. Preliminary Report Dictated by Resident: William Salazar ?MD. Omid, have reviewed this study and agree with theove report.CT HEAD WO CONTRAST HISTORY: ams COMPARISON: [...] reviewed this study and agree with theabove report.[facility] [id number] 03:20:06 No acute intracranial hemorrhage or mass [...] air cells. A nasogastric tube ispartially visualized. [facility], Radiant Results Inft User - 10/28/2020 10:21 [...] reviewed this study and agree with theabove report.[facility] [id number] 03:20:06 No acute intracranial hemorrhage or mass [...] reviewed this study and agree with theabove report.[facility] GLUCOSE (AUTOMATED) 2020-10-29 01:10:09 Test Item Value Reference Range Interpretation Comments POCT GLU (test code = 7165288945) 178 mg/dL 70-110 H Lab Interpretation (test code = Abnormal 43179-1) [facility] GLUCOSE (AUTOMATED)2020-10-28 21:43:56 Test Item Value Reference Range Interpretation Comments POCT GLU (test code = 3235518487) 131 mg/dL 70-110 H Lab Interpretation (test code = Abnormal 48870-5) [facility] GLUCOSE (AUTOMATED)2020-10-28 16:37:06 Test Item Value Reference Range Interpretation Comments POCT GLU (test code = 6900011697) 345 mg/dL 70-110 H Lab Interpretation (test code = Abnormal 68627-1) [facility] 1 [id number] 15:26:11EXAM: XR CHEST 1 VW HISTORY: COUGH [...] tube passes through the thorax and into thestomach.[facility] PANEL 20 + LACTIC [id number] 13:57:21 Test Item Value Reference Range Interpretation Comments PH (test code = 2) 7.35-7.45 H PCO2 (test code = See_Comment L [Automat ed 8780072028) message] The sy stem which generated this result transmitted reference range : 35 - 45 mmHg. The reference range was not used to interpret this result as normal/abnormal . PO2 (test code = See_Comment L [Automated 0789965434) message] The sy stem which generated this result transmitted reference range : 80 - 100 mmHg. The reference range was not used to interpret this result as normal/abnormal . HCO3 (test code = See_Comment L [Automate d 8587644547) message] The sy stem which generated this result transmitted reference range : 22 - 26 mEq/L. The reference range was not used to interpret this result as normal/abnormal . BE (test code = See_Comment L [Automated 2103673197) message] The sy stem which generated this result transmitted reference range : -3.0 - 3.0 mEq/ L. The reference r christine was not used to interpret this result as normal/abnormal . THB (test code = 10.2 g/dL 13.5-18.0 L 5081753653) %O2HB (test code = 89.8 % 94.0-99.0 L 9858255068) %COHB ART (test code = 0.3 % 0.0-1.5 3492857180) %METHB ART (test code = 0.3 % 0.4-1.5 L 7501859901) VOL%O2 ART (test code = 12.9 % 15.0-23.0 L 3408719954) NA (test code = 151 mmol/L 135-145 H 3207134675) K+ (test code = 3.7 mmol/L 3.5-5.0 9547873628) AC CA IONZ (test code = 5.10 mg/dL 4.50-5.30 9407014289) GLUCOSE (test code = 359 mg/dL 70-110 H 2264962079) LACTIC ACID (test code 1.43 mmol/L 0.50-2.20 = 8270449595) Lab Interpretation Abnormal (test code = 72836-0) [facility] GLUCOSE (AUTOMATED)2020-10-28 13:45:52 Test Item Value Reference Range Interpretation Comments POCT GLU (test code = 2638166438) 355 mg/dL 70-110 H Lab Interpretation (test code = Abnormal 30604-8) [facility] GLUCOSE (AUTOMATED)2020-10-28 13:18:15 Test Item Value Reference Range Interpretation Comments POCT GLU (test code = 2086501626) 322 mg/dL 70-110 H Lab Interpretation (test code = Abnormal 71063-6) [facility] GLUCOSE (AUTOMATED)2020-10-28 10:42:20 Test Item Value Reference Range Interpretation Comments POCT GLU (test code = 7896984220) 303 mg/dL 70-110 H Lab Interpretation (test code = Abnormal 89803-9) [facility] [id number] 08:53:59 Test Item Value Reference Range Interpretation Comments TROPONIN I (test 0.352 ng/mL See_Comment H [Automated code = 7548533982) message] The system which generated this result [...] ? Lab Interpretation Abnormal (test code = 04218-9) [facility] METABOLIC PANEL (NA, K, CL, CO2, GLUCOSE, BUN, CREATININE, CA)2020-10-28 08:42:28 Test Item Value Reference Range Interpretation Comments NA (test code = 151 mmol/L 135-145 H 9571265517) K (test code = 3.6 mmol/L 3.5-5.0 5671380756) CL (test code = 125 mmol/L 98-108 H 8051405743) CO2 TOTAL (test code = 20 mmol/L 23-31 L 3949315740) AGAP (test code = 2-16 4396109267) BUN (test code = 50 mg/dL 7-23 H 3102791428) GLUCOSE (test code = 303 mg/dL 70-110 H 3545906617) CREATININE (test code = 1.25 mg/dL 0.60-1.25 2676787670) CALCIUM (test code = 9.1 mg/dL 8.6-10.6 1088074220) eGFR (test code = mL/min/1.73m2 7784215076) JUAN LUIS (test code = JUAN LUIS) [...] tests). Lab Interpretation Abnormal (test code = 54271-0) [facility] WITHOUT [id number] 08:18:28 Test Item Value Reference Range Interpretation Comments WBC (test code = See_Comment [Automated message] 6690-2) The system [employer] generated this result transmitted ref erence range: 4.20 - 1 0.70 10*3/?L. The reference range was not used to int erpret this result as normal/abnormal . RBC (test code = 789-8) See_Comment L [Au tomated message] The system [employer] generated this result transmitted ref erence range: [...] 777-3) See_Comment [Au tomated message] The system [employer] generated this result transmitted ref erence range: 150 - 32 8 10*3/?L. The reference range was not used to int erpret this result as normal/abnormal . MPV (test code = 12.0 fL 9.8-13.0 65444-8) RDW-CV (test code = 22.0 % 12.1-15.4 H 788-0) RDW-SD (test code = 56.7 fL 38.5-51.6 H 72288-4) NRBC x10^3 (test code = <0.01 See_Comment [Au tomated message] 6316379532) The system [employer] generated this result transmitted ref erence range: 10*3/?L. The reference range was not used to int erpret this result as normal/abnormal . NRBC/100 WBC (test code See_Comment [Au tomated message] = 1945011829) The system [employer] generated this result transmitted ref erence range: 0.0 - 10 .0 /100 WBCs. The reference range was not used to int erpret this result as normal/abnormal . IPF % (test code = 1.6 % 1.2-10.7 Platelet count 7109451398) measured by fluorescence me thod. Lab Interpretation Abnormal (test code = 82028-7) [facility] GLUCOSE (AUTOMATED)2020-10-28 07:38:54 Test Item Value Reference Range Interpretation Comments POCT GLU (test code = 0833484753) 302 mg/dL 70-110 H Lab Interpretation (test code = Abnormal 75012-7) [facility] GLUCOSE (AUTOMATED)2020-10-28 04:16:52 Test Item Value Reference Range Interpretation Comments POCT GLU (test code = 0419155185) 306 mg/dL 70-110 H Lab Interpretation (test code = Abnormal 23728-6) [facility] CULTURE [id number] 03:01:27 Test Item Value Reference Range Interpretation Comments Blood Culture-Aerobic No organisms No growth Previo us (test code = 95456-7) isolated prelim inary verified result was Culture [...] Culture-Anaerobic isolated preliminar y (test code = 62678-7) verifi ed result was Culture In Progress [...] CDT Lab Interpretation Normal (test code = 70646-3) [facility] CULTURE [id number] 03:01:27 Test Item Value Reference Range Interpretation Comments Blood Culture-Aerobic No organisms No growth Previo us (test code = 40984-6) isolated prelim inary verified result was Culture In Progress on 10/23/2020 at 01 CDTPrevious preliminary verified result was No growth a t 24 hours on 10/23/2020 at 22 01 CDTPrevious preliminary verified result was No growth a t 48 hours on 10/24/2020 at 22 CDTPrevious preliminary verified result was No growth a t 72 hours on 10/25/2020 at 22 02 CDT Blood No organisms No growth Previous Culture-Anaerobic isolated preliminar y (test code = 88489-7) verifi ed result was Culture In Progress [...] CDT Lab Interpretation Normal (test code = 91022-8) [facility] [id number] 02:04:19 Test Item Value Reference Range Interpretation Comments TROPONIN I (test 0.236 ng/mL See_Comment H [Automated code = 4906595179) message] The system which generated this result [...] ? Lab Interpretation Abnormal (test code = 51186-3) [facility]2020-10-28 01:29:26 Test Item Value Reference Range Interpretation Comments POCT GLU (test code = 6148155783) 262 mg/dL 70-110 H Lab Interpretation (test code = Abnormal 92200-9) [facility] (NA, K, CL, CO2, GLUCOSE, BUN, CREATININE, CA)2020-10-27 22:22:07 Test Item Value Reference Range Interpretation Comments NA (test code = 151 mmol/L 135-145 H 3005493966) K (test code = 3.2 mmol/L 3.5-5.0 L 5036827654) CL (test code = 124 mmol/L 98-108 H 6075086391) CO2 TOTAL (test code = 20 mmol/L 23-31 L 5039053090) AGAP (test code = 2-16 2964101963) BUN (test code = 49 mg/dL 7-23 H 0119897405) GLUCOSE (test code = 271 mg/dL 70-110 H 8252219265) CREATININE (test code = 1.24 mg/dL 0.60-1.25 5086141280) CALCIUM (test code = 8.7 mg/dL 8.6-10.6 4937270603) eGFR (test code = mL/min/1.73m2 6904717154) JUAN LUIS (test code = JUAN LUIS) [...] tests). Lab Interpretation Abnormal (test code = 28933-0) [facility] GLUCOSE (AUTOMATED)2020-10-27 21:31:54 Test Item Value Reference Range Interpretation Comments POCT GLU (test code = 7816987326) 308 mg/dL 70-110 H Lab Interpretation (test code = Abnormal 93849-5) [facility] GLUCOSE (AUTOMATED)2020-10-27 19:14:20 Test Item Value Reference Range Interpretation Comments POCT GLU (test code = 0067269596) 281 mg/dL 70-110 H Lab Interpretation (test code = Abnormal 99305-8) [facility] GLUCOSE (AUTOMATED)2020-10-27 16:11:09 Test Item Value Reference Range Interpretation Comments POCT GLU (test code = 5642530962) 278 mg/dL 70-110 H Lab Interpretation (test code = Abnormal 74090-7) [facility] - To confirm Dobhoff / [...] reviewed this study and agree with theabove report.[facility] Abdominal 1 View - To confirm Dobhoff [...] of the abdomen and pelvis were obtained. [facility], Radiant Results Inft User - 10/27/2020 10:25 [...] reviewed this study and agree with theabove report.[facility] - To confirm Dobhoff / [...] reviewed this study and agree with theabove report.[facility] WITH [id number] 14:56:09 Test Item Value Reference Range Interpretation [...] (test code = 59.0 fL 38.5-51.6 H 75862-5) RDW-CV (test code = 21.9 % 12.1-15.4 H 788-0) PLT (test code = See_Comment [Automated 777-3) message] The sy stem which generated this result transmitted reference range : 150 - 328 10*3/ ?L. The reference r christine was not used to interpret this result as normal/abnormal . MPV (test code = 11.7 fL 9.8-13.0 67614-8) IPF % (test code = 2.6 % 1.2-10.7 Platelet count 8286298309) measured by fluorescence method. NRBC/100 WBC (test See_Comment [Automat ed code = 5661124547) message] The system which generated this result transmitted reference range : 0.0 - 10.0 /100 WBCs. The refer ence range was not u sed to interpret th is result as normal/abnormal . NRBC x10^3 (test code <0.01 See_Comment [Auto mated = 3958940468) message] The s ystem which generated this result transmitted reference range : 10*3/?L. The reference range was not used to interpret this result as normal/abnormal . GRAN MAT (NEUT) % 73.4 % (test code = 770-8) IMM GRAN % (test code 4.90 % = 3935889918) LYMPH % (test code = 6.7 % 736-9) MONO % (test code = 14.3 % 5905-5) EOS % (test code = 0.4 % 713-8) BASO % (test code = 0.3 % 706-2) GRAN MAT x10^3(ANC) 8.45 10*3/uL 1.99-6.95 H (test code = 1363772863) IMM GRAN x10^3 (test 0.57 10*3/uL 0.00-0.06 H code = 6892807508) LYMPH x10^3 (test code 0.77 10*3/uL 1.09-3.23 [...] 800-3) Lab Interpretation Abnormal (test code = 52974-7) [facility]2020-10-27 12:58:08 Test Item Value Reference Range Interpretation Comments POCT GLU (test code = 2954342225) 381 mg/dL 70-110 H Lab Interpretation (test code = Abnormal 73432-0) [facility] [id number] 11:41:52 Test Item Value Reference Range Interpretation Comments TROPONIN I (test 0.229 ng/mL See_Comment H [Automated code = 2192919072) message] The system which generated this result [...] ? Lab Interpretation Abnormal (test code = 44355-6) [facility] METABOLIC PANEL (NA, K, CL, CO2, GLUCOSE, BUN, CREATININE, CA)2020-10-27 11:41:31 Test Item Value Reference Range Interpretation Comments NA (test code = 149 mmol/L 135-145 H 6709033493) K (test code = 4.2 mmol/L 3.5-5.0 Slight 8025268216) hemolysis CL (test code = 122 mmol/L 98-108 H 2337075516) CO2 TOTAL (test code 17 mmol/L 23-31 L = 1807560623) AGAP (test code = 2-16 6014946587) BUN (test code = 52 mg/dL 7-23 H Slight 9012747718) hemolysis GLUCOSE (test code = 346 mg/dL 70-110 H 7741351135) CREATININE (test code 1.21 mg/dL 0.60-1.25 = 1793040553) CALCIUM (test code = 8.5 mg/dL 8.6-10.6 L 7112175048) eGFR (test code = mL/min/1.73m2 7614513402) JUAN LUIS (test code = JUAN LUIS) [...] tests). Lab Interpretation Abnormal (test code = 61923-1) [facility]udaTRNEYN [id number] 05:53:41 Test Item Value Reference Range Interpretation Comments TROPONIN I (test 0.163 ng/mL See_Comment H [Automated code = 2981429285) message] The system which generated this result [...] ? Lab Interpretation Abnormal (test code = 30388-1) [facility]OL[facility] (NA, K, CL, CO2, GLUCOSE, BUN, CREATININE, CA)2020-10-27 05:39:56 Test Item Value Reference Range Interpretation Comments NA (test code = 152 mmol/L 135-145 H 6157671849) K (test code = 3.9 mmol/L 3.5-5.0 3751696416) CL (test code = 123 mmol/L 98-108 H 7128290478) CO2 TOTAL (test code = 13 mmol/L 23-31 L 4998375620) AGAP (test code = 2-16 7644004869) BUN (test code = 52 mg/dL 7-23 H 0146810428) GLUCOSE (test code = 284 mg/dL 70-110 H 9505080522) CREATININE (test code = 1.31 mg/dL 0.60-1.25 H 8887582586) CALCIUM (test code = 8.6 mg/dL 8.6-10.6 6613664966) eGFR (test code = mL/min/1.73m2 1076072825) JUAN LUIS (test code = JUAN LUIS) [...] tests). Lab Interpretation Abnormal (test code = 60276-0) [facility] GLUCOSE (AUTOMATED)2020-10-27 03:12:41 Test Item Value Reference Range Interpretation Comments POCT GLU (test code = 8302756829) 253 mg/dL 70-110 H Lab Interpretation (test code = Abnormal 75910-2) [facility] METABOLIC PANEL (NA, K, CL, CO2, GLUCOSE, BUN, CREATININE, CA)2020-10-26 23:37:44 Test Item Value Reference Range Interpretation Comments NA (test code = 152 mmol/L 135-145 H 2095562558) K (test code = 4.1 mmol/L 3.5-5.0 6012072604) CL (test code = 123 mmol/L 98-108 H 1289897772) CO2 TOTAL (test code = 11 mmol/L 23-31 L 9347808654) AGAP (test code = 2-16 H 9965917690) BUN (test code = 54 mg/dL 7-23 H 2863806889) GLUCOSE (test code = 193 mg/dL 70-110 H 1095902153) CREATININE (test code = 1.41 mg/dL 0.60-1.25 H 3904488284) CALCIUM (test code = 9.1 mg/dL 8.6-10.6 2831800915) eGFR (test code = mL/min/1.73m2 4946716925) JUAN LUIS (test code = JUAN LUIS) [...] tests). Lab Interpretation Abnormal (test code = 06722-6) [facility]2020-10-26 21:41:08 Test Item Value Reference Range Interpretation Comments POCT GLU (test code = 3116622368) 204 mg/dL 70-110 H Lab Interpretation (test code = Abnormal 30689-8) [facility] ABDOMEN PELVIS W [id number] 17:26:11 1. 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 [facility], Radiant Results Inft User - 10/26/2020 12:27 PM CDTEXAM: CT CHEST, ABDOMEN AND PELVIS WITHOUT CONTRAST, CONSULTATION OUTSIDEHISTORY: 65 years -old Male with uti - shock COMPARISON: None, correlation with CT abdomen pelvis with and withoutcontrast from 09/20/2017TECHNIQUE: CT examination acquisition dated 10/22/2020 from [facility], labeled with the patients name, was submitted [...] reviewed this study and agree with the abovereport.[facility]BD[facility] PELVIS W [id number] 17:26:11 1. 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 [facility], Radiant Results Inft User - 11/08/2020 9:47 AM CDTEXAM: CT CHEST, ABDOMEN AND PELVIS WITHOUT CONTRAST, CONSULTATION OUTSIDEHISTORY: 65 years -old Male with uti - shock COMPARISON: None, correlation with CT abdomen pelvis with and withoutcontrast from 09/20/2017TECHNIQUE: CT examination acquisition dated 10/22/2020 from [facility], labeled with the patients name, was submitted [...] reviewed this study and agree with the abovereport.[facility]BD[facility] PELVIS W [id number] 17:26:11 1. 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 [facility], Radiant Results Inft User - 11/08/2020 9:47 AM CDTEXAM: CT CHEST, ABDOMEN AND PELVIS WITHOUT CONTRAST, CONSULTATION OUTSIDEHISTORY: 65 years -old Male with uti - shock COMPARISON: None, correlation with CT abdomen pelvis with and withoutcontrast from 09/20/2017TECHNIQUE: CT examination acquisition dated 10/22/2020 from [facility], labeled with the patients name, was submitted [...] reviewed this study and agree with the abovereport.[facility] GLUCOSE (AUTOMATED)2020-10-26 16:56:22 Test Item Value Reference Range Interpretation Comments POCT GLU (test code = 9872600285) 179 mg/dL 70-110 H Lab Interpretation (test code = Abnormal 11820-2) [facility] GLUCOSE (AUTOMATED)2020-10-26 13:03:19 Test Item Value Reference Range Interpretation Comments POCT GLU (test code = 6196366112) 164 mg/dL 70-110 H Lab Interpretation (test code = Abnormal 79881-0) [facility] [id number] 09:45:42 Test Item Value Reference Range Interpretation Comments TROPONIN I (test 0.120 ng/mL See_Comment H [Automated code = 0464018573) message] The system which generated this result [...] ? Lab Interpretation Abnormal (test code = 73285-9) [facility] WITH [id number] 09:41:39 Test Item Value Reference Range Interpretation [...] (test code = 58.0 fL 38.5-51.6 H 34788-2) RDW-CV (test code = 21.2 % 12.1-15.4 H 788-0) PLT (test code = See_Comment [Automated 777-3) message] The sy stem which generated this result transmitted reference range : 150 - 328 10*3/ ?L. The reference r christine was not used to interpret this result as normal/abnormal . MPV (test code = 12.3 fL 9.8-13.0 92676-0) IPF % (test code = 2.6 % 1.2-10.7 Platelet count 2316165551) measured by fluorescence method. NRBC/100 WBC (test See_Comment [Automat ed code = 0506488874) message] The system which generated this result transmitted reference range : 0.0 - 10.0 /100 WBCs. The refer ence range was not u sed to interpret th is result as normal/abnormal . NRBC x10^3 (test code See_Comment [Auto mated = 0058157094) message] The s ystem which generated this result transmitted reference range : 10*3/?L. The reference range was not used to interpret this result as normal/abnormal . GRAN MAT (NEUT) % 84.2 % (test code = 770-8) IMM GRAN % (test code 2.50 % = 7198060744) LYMPH % (test code = 4.7 % 736-9) MONO % (test code = 8.1 % 5905-5) EOS % (test code = 0.1 % 713-8) BASO % (test code = 0.4 % 706-2) GRAN MAT x10^3(ANC) 13.91 10*3/uL 1.99-6.95 H (test code = 8424642957) IMM GRAN x10^3 (test 0.42 10*3/uL 0.00-0.06 H code = 8667637571) LYMPH x10^3 (test 0.77 10*3/uL 1.09-3.23 L code = 731-0) MONO x10^3 (test code 1.33 10*3/uL 0.36-1.02 H = 742-7) EOS x10^3 (test code <0.03 0.06-0.53 L = 711-2) BASO x10^3 (test code 0.06 10*3/uL 0.01-0.09 = 704-7) BASO STIPPLING (test Present A code = 703-9) YVES CELLS (test code 2+ See_Comment A [Auto mated = 1703-9) message] The sy stem which generated this result transmitted reference range : (none). The reference range was not used to interpret this result as normal/abnormal . SCHISTOCYTES (test 1+ A code = 800-3) Lab Interpretation Abnormal (test code = 99118-5) [facility] METABOLIC PANEL (NA, K, CL, CO2, GLUCOSE, BUN, CREATININE, CA)2020-10-26 09:35:35 Test Item Value Reference Range Interpretation Comments NA (test code = 151 mmol/L 135-145 H 9746513256) K (test code = 3.6 mmol/L 3.5-5.0 3441496139) CL (test code = 121 mmol/L 98-108 H 7239897146) CO2 TOTAL (test code = 15 mmol/L 23-31 L 2378886722) AGAP (test code = 2-16 2767669269) BUN (test code = 57 mg/dL 7-23 H 1490812687) GLUCOSE (test code = 168 mg/dL 70-110 H 4491624177) CREATININE (test code = 1.46 mg/dL 0.60-1.25 H 6617686784) CALCIUM (test code = 9.1 mg/dL 8.6-10.6 3558221295) eGFR (test code = mL/min/1.73m2 5045466533) JUAN LUIS (test code = JUAN LUIS) [...] tests). Lab Interpretation Abnormal (test code = 52419-9) [facility] 09:32:43 Test Item Value Reference Range Interpretation Comments MAGNESIUM (test code = 7001099181) 2.3 mg/dL 1.7-2.4 Lab Interpretation (test code = Normal 15344-3) [facility] [id number] 02:54:02 Test Item Value Reference Range Interpretation Comments TROPONIN I (test 0.117 ng/mL See_Comment H [Automated code = 0469700610) message] The system which generated this result [...] ? Lab Interpretation Abnormal (test code = 10115-5) [facility] GLUCOSE (AUTOMATED)2020-10-26 02:34:02 Test Item Value Reference Range Interpretation Comments POCT GLU (test code = 5962445794) 193 mg/dL 70-110 H Lab Interpretation (test code = Abnormal 98847-0) [facility] GLUCOSE (AUTOMATED)2020-10-25 23:37:15 Test Item Value Reference Range Interpretation Comments POCT GLU (test code = 6101709246) 166 mg/dL 70-110 H Lab Interpretation (test code = Abnormal 72404-8) [facility] [id number] 20:45:53 Test Item Value Reference Range Interpretation Comments TROPONIN I (test 0.136 ng/mL See_Comment H [Automated code = 4040678324) message] The system which generated this result [...] ? Lab Interpretation Abnormal (test code = 79844-4) [facility]2021-04-13 20:27:09 Test Item Value Reference Range Interpretation Comments MAGNESIUM (test code = 1372812800) 2.3 mg/dL 1.7-2.4 Lab Interpretation (test code = Normal 41282-1) [facility] (NA, K, CL, CO2, GLUCOSE, BUN, CREATININE, CA)2020-10-25 20:06:41 Test Item Value Reference Range Interpretation Comments NA (test code = 147 mmol/L 135-145 H 4613096695) K (test code = 3.8 mmol/L 3.5-5.0 7051963840) CL (test code = 118 mmol/L 98-108 H 2962538699) CO2 TOTAL (test code = 15 mmol/L 23-31 L 4434068873) AGAP (test code = 2-16 3020359608) BUN (test code = 61 mg/dL 7-23 H 6260865626) GLUCOSE (test code = 174 mg/dL 70-110 H 4563794559) CREATININE (test code = 1.59 mg/dL 0.60-1.25 H 7393519698) CALCIUM (test code = 9.3 mg/dL 8.6-10.6 3255241352) eGFR (test code = mL/min/1.73m2 4586787607) JUAN LUIS (test code = JUAN LUIS) [...] tests). Lab Interpretation Abnormal (test code = 30526-4) [facility] [id number] 19:54:16 Test Item Value Reference Range Interpretation Comments PH (test code = 2) 7.35-7.45 PCO2 (test code = See_Comment L [Automat ed 7008902311) message] The sy stem which generated this result transmitted reference range : 35 - 45 mmHg. The reference range was not used to interpret this result as normal/abnormal . PO2 (test code = See_Comment [Automated 5216445904) message] The sy stem which generated this result transmitted reference range : 80 - 100 mmHg. The reference range was not used to interpret this result as normal/abnormal . HCO3 (test code = See_Comment L [Automate d 6708252645) message] The sy stem which generated this result transmitted reference range : 22 - 26 mEq/L. The reference range was not used to interpret this result as normal/abnormal . BE (test code = See_Comment L [Automated 1293996039) message] The sy stem which generated this result transmitted reference range : -3.0 - 3.0 mEq/ L. The reference r christine was not used to interpret this result as normal/abnormal . THB (test code = 10.0 g/dL 13.5-18.0 L 0055214111) %O2HB (test code = 96.5 % 94.0-99.0 9752416051) %COHB ART (test code = 0.2 % 0.0-1.5 8976071358) %METHB ART (test code = 0.3 % 0.4-1.5 L 8099982908) VOL%O2 ART (test code = 13.7 % 15.0-23.0 L 9745352411) NA (test code = 149 mmol/L 135-145 H 8922362966) K+ (test code = 3.8 mmol/L 3.5-5.0 6859206930) AC CA IONZ (test code = 5.20 mg/dL 4.50-5.30 8837388577) GLUCOSE (test code = 178 mg/dL 70-110 H 7071743755) LACTIC ACID (test code 1.36 mmol/L 0.50-2.20 = 7355505951) Lab Interpretation Abnormal (test code = 30383-7) [facility] LACTIC [id number] 18:33:03 Test Item Value Reference Range Interpretation Comments PH (test code = 2) 7.35-7.45 L PCO2 (test code = See_Comment L [Automat ed 5589139714) message] The sy stem which generated this result transmitted reference range : 35 - 45 mmHg. The reference range was not used to interpret this result as normal/abnormal . PO2 (test code = See_Comment [Automated 0169412699) message] The sy stem which generated this result transmitted reference range : 80 - 100 mmHg. The reference range was not used to interpret this result as normal/abnormal . HCO3 (test code = See_Comment L [Automate d 4321829021) message] The sy stem which generated this result transmitted reference range : 22 - 26 mEq/L. The reference range was not used to interpret this result as normal/abnormal . BE (test code = See_Comment L [Automated 1728684831) message] The sy stem which generated this result transmitted reference range : -3.0 - 3.0 mEq/ L. The reference r christine was not used to interpret this result as normal/abnormal . THB (test code = 11.4 g/dL 13.5-18.0 L 9236046601) %O2HB (test code = 97.0 % 94.0-99.0 8922015755) %COHB ART (test code = 0.3 % 0.0-1.5 0208499049) %METHB ART (test code = 0.0 % 0.4-1.5 L 6314067513) VOL%O2 ART (test code = 15.7 % 15.0-23.0 6471278383) NA (test code = 147 mmol/L 135-145 H 4147489028) K+ (test code = 3.8 mmol/L 3.5-5.0 9529326067) AC CA IONZ (test code = 5.30 mg/dL 4.50-5.30 6359565422) GLUCOSE (test code = 173 mg/dL 70-110 H 9170530487) LACTIC ACID (test code 1.08 mmol/L 0.50-2.20 = 8077480040) Lab Interpretation Abnormal (test code = 25103-1) [facility] GLUCOSE (AUTOMATED)2020-10-25 17:17:08 Test Item Value Reference Range Interpretation Comments POCT GLU (test code = 9450718029) 179 mg/dL 70-110 H Lab Interpretation (test code = Abnormal 42370-7) [facility] + LACTIC [id number] 15:31:09 Test Item Value Reference Range Interpretation Comments PH (test code = 2) 7.35-7.45 PCO2 (test code = See_Comment L [Automat ed 7652092807) message] The sy stem which generated this result transmitted reference range : 35 - 45 mmHg. The reference range was not used to interpret this result as normal/abnormal . PO2 (test code = See_Comment [Automated 8647830371) message] The sy stem which generated this result transmitted reference range : 80 - 100 mmHg. The reference range was not used to interpret this result as normal/abnormal . HCO3 (test code = See_Comment L [Automate d 3380290319) message] The sy stem which generated this result transmitted reference range : 22 - 26 mEq/L. The reference range was not used to interpret this result as normal/abnormal . BE (test code = See_Comment L [Automated 5289995048) message] The sy stem which generated this result transmitted reference range : -3.0 - 3.0 mEq/ L. The reference r christine was not used to interpret this result as normal/abnormal . THB (test code = 9.3 g/dL 13.5-18.0 L 4454017128) %O2HB (test code = 96.5 % 94.0-99.0 8482791346) %COHB ART (test code = 0.3 % 0.0-1.5 8772546835) %METHB ART (test code = 0.3 % 0.4-1.5 L 6466759456) VOL%O2 ART (test code = 12.8 % 15.0-23.0 L 8466124912) NA (test code = 144 mmol/L 135-145 3909117009) K+ (test code = 3.6 mmol/L 3.5-5.0 1920801897) AC CA IONZ (test code = 5.10 mg/dL 4.50-5.30 2593346491) GLUCOSE (test code = 177 mg/dL 70-110 H 7052778499) LACTIC ACID (test code 0.92 mmol/L 0.50-2.20 = 8777067470) Lab Interpretation Abnormal (test code = 75104-1) [facility]2020-10-25 12:43:51 Test Item Value Reference Range Interpretation Comments POCT GLU (test code = 0152810746) 213 mg/dL 70-110 H Lab Interpretation (test code = Abnormal 95589-9) [facility] WITH [id number] 10:09:26 Test Item Value Reference Range Interpretation [...] (test code = 56.3 fL 38.5-51.6 H 63370-8) RDW-CV (test code = 20.6 % 12.1-15.4 H 788-0) PLT (test code = See_Comment [Automated 777-3) message] The sy stem which generated this result transmitted reference range : 150 - 328 10*3/ ?L. The reference r christine was not used to interpret this result as normal/abnormal . MPV (test code = 12.6 fL 9.8-13.0 17793-4) IPF % (test code = 2.3 % 1.2-10.7 Platelet count 1103520316) measured by fluorescence method. NRBC/100 WBC (test See_Comment [Automat ed code = 5269485466) message] The system which generated this result transmitted reference range : 0.0 - 10.0 /100 WBCs. The refer ence range was not u sed to interpret th is result as normal/abnormal . NRBC x10^3 (test code See_Comment [Auto mated = 7895568347) message] The s ystem which generated this result transmitted reference range : 10*3/?L. The reference range was not used to interpret this result as normal/abnormal . GRAN MAT (NEUT) % 89.5 % (test code = 770-8) IMM GRAN % (test code 2.30 % = 5937882107) LYMPH % (test code = 3.9 % 736-9) MONO % (test code = 3.8 % 5905-5) EOS % (test code = 0.1 % 713-8) BASO % (test code = 0.4 % 706-2) GRAN MAT x10^3(ANC) 13.12 10*3/uL 1.99-6.95 H (test code = 3419157050) IMM GRAN x10^3 (test 0.34 10*3/uL 0.00-0.06 H code = 3778551334) LYMPH x10^3 (test 0.57 10*3/uL 1.09-3.23 L code = 731-0) MONO x10^3 (test code 0.56 10*3/uL 0.36-1.02 = 742-7) EOS x10^3 (test code <0.03 0.06-0.53 L = 711-2) BASO x10^3 (test code 0.06 10*3/uL 0.01-0.09 = 704-7) YVES CELLS (test code 2+ See_Comment A [Auto mated = 7890-9) message] The sy stem which generated this result transmitted reference range : (none). The reference range was not used to interpret this result as normal/abnormal . SCHISTOCYTES (test 1+ A code = 800-3) Lab Interpretation Abnormal (test code = 66080-5) [facility] METABOLIC PANEL (NA, K, CL, CO2, GLUCOSE, BUN, CREATININE, CA)2020-10-25 09:03:31 Test Item Value Reference Range Interpretation Comments NA (test code = 147 mmol/L 135-145 H 1360519758) K (test code = 3.6 mmol/L 3.5-5.0 9884567948) CL (test code = 115 mmol/L 98-108 H 5075436827) CO2 TOTAL (test code = 14 mmol/L 23-31 L 7445798407) AGAP (test code = 2-16 H 0096418522) BUN (test code = 58 mg/dL 7-23 H 6335701190) GLUCOSE (test code = 193 mg/dL 70-110 H 0217811059) CREATININE (test code = 1.58 mg/dL 0.60-1.25 H 0123783433) CALCIUM (test code = 9.3 mg/dL 8.6-10.6 8440028061) eGFR (test code = mL/min/1.73m2 1192949364) JUAN LUIS (test code = JUAN LUIS) [...] tests). Lab Interpretation Abnormal (test code = 72830-4) [facility] 09:03:31 Test Item Value Reference Range Interpretation Comments MAGNESIUM (test code = 5977083683) 2.2 mg/dL 1.7-2.4 Lab Interpretation (test code = Normal 39268-4) [facility] GLUCOSE (AUTOMATED)2020-10-25 01:29:10 Test Item Value Reference Range Interpretation Comments POCT GLU (test code = 7914565936) 135 mg/dL 70-110 H Lab Interpretation (test code = Abnormal 96825-9) [facility] GLUCOSE (AUTOMATED)2020-10-24 21:38:54 Test Item Value Reference Range Interpretation Comments POCT GLU (test code = 5492462920) 131 mg/dL 70-110 H Lab Interpretation (test code = Abnormal 59052-1) [facility] HEAD WO [id number] 20:06:13 No acute intracranial abnormality. Bilateral mastoid [...] reviewed this study and agree with the abovereport.[facility]2020-10-24 16:52:54 Test Item Value Reference Range Interpretation Comments POCT GLU (test code = 1107326751) 137 mg/dL 70-110 H Lab Interpretation (test code = Abnormal 29448-7) [facility] - To confirm nasogastric tube placement.2020-10-24 14:05:05FINDINGS / IMPRESSION: Nasogastric tube tip and sidehole terminate at the proximal stomach. Preliminary Report Dictated by Resident: Emelia Mcdonald I reviewed this study and agree. Jigar Cummins MD., have reviewed this study and agree with theabove report.EXAM: XR ABDOMEN 1 VW HISTORY: 65 years-old Male presenting with To confirm nasogastric tube tubeplacement. COMPARISON: Abdomen plain film08/24/2019, 09/20/2017 TECHNIQUE: Frontal views of the abdomen were obtained. Himb, Radiant Results Inft User - 10/24/2020 9:06 AM CDTEXAM: XR ABDOMEN 1 VWHISTORY: 65 years-old Male presenting with To confirm nasogastric tube tubeplacement.COMPARISON: Abdomen plain film 08/24/2019, 09/20/2017TECHNIQUE: Frontal views of the abdomen were obtained.IMPRESSIONFINDINGS / IMPRESSION:Nasogastric tube tip and sidehole terminate at the proximal stomach.Preliminary Report Dictated by Resident: Emelia Mcdonald I reviewed this study and agree.IJigar MD., have reviewed this study and agree with theabove report.[facility]2020-10-24 12:53:15 Test Item Value Reference Range Interpretation Comments POCT GLU (test code = 0484273309) 142 mg/dL 70-110 H Lab Interpretation (test code = Abnormal 05524-0) [facility] WITH [id number] 10:52:23 Test Item Value Reference Range Interpretation [...] (test code = 55.3 fL 38.5-51.6 H 35081-7) RDW-CV (test code = 20.4 % 12.1-15.4 H 788-0) PLT (test code = See_Comment [Automated 777-3) message] The sy stem which generated this result transmitted reference range : 150 - 328 10*3/ ?L. The reference r christine was not used to interpret this result as normal/abnormal . MPV (test code = 12.8 fL 9.8-13.0 47060-8) IPF % (test code = 4.3 % 1.2-10.7 Platelet count 8632040663) measured by fluorescence method. NRBC/100 WBC (test See_Comment [Automat ed code = 1276278108) message] The system which generated this result transmitted reference range : 0.0 - 10.0 /100 WBCs. The refer ence range was not u sed to interpret th is result as normal/abnormal . NRBC x10^3 (test code See_Comment [Auto mated = 5793704011) message] The s ystem which generated this result transmitted reference range : 10*3/?L. The reference range was not used to interpret this result as normal/abnormal . GRAN MAT (NEUT) % 90.4 % (test code = 770-8) IMM GRAN % (test code 0.80 % = 6864810068) LYMPH % (test code = 3.5 % 736-9) MONO % (test code = 4.9 % 5905-5) EOS % (test code = 0.1 % 713-8) BASO % (test code = 0.3 % 706-2) GRAN MAT x10^3(ANC) 12.98 10*3/uL 1.99-6.95 H (test code = 2122785789) IMM GRAN x10^3 (test 0.12 10*3/uL 0.00-0.06 H code = 9168001567) LYMPH x10^3 (test 0.51 10*3/uL 1.09-3.23 L code = 731-0) MONO x10^3 (test code 0.71 10*3/uL 0.36-1.02 = 742-7) EOS x10^3 (test code <0.03 0.06-0.53 L = 711-2) BASO x10^3 (test code 0.04 10*3/uL 0.01-0.09 = 704-7) ELLIPTO/OVAL (test 2+ See_Comment A [Automat ed code = 27247-3) message] The system which generated this result transmitted reference range : (none). The reference range was not used to interpret this result as normal/abnormal . SCHISTOCYTES (test 2+ A code = 800-3) BANDS (test code = Increased A 4586688030) Lab Interpretation Abnormal (test code = 70554-4) [facility] 10:23:51 Test Item Value Reference Range Interpretation Comments MAGNESIUM (test code = 7453003739) 2.2 mg/dL 1.7-2.4 Lab Interpretation (test code = Normal 37776-9) [facility] METABOLIC PANEL (NA, K, CL, CO2, GLUCOSE, BUN, CREATININE, CA)2020-10-24 10:23:51 Test Item Value Reference Range Interpretation Comments NA (test code = 144 mmol/L 135-145 0813502277) K (test code = 3.7 mmol/L 3.5-5.0 8439350271) CL (test code = 114 mmol/L 98-108 H 0282746763) CO2 TOTAL (test code = 15 mmol/L 23-31 L 8530127513) AGAP (test code = 2-16 8299591807) BUN (test code = 63 mg/dL 7-23 H 3442539358) GLUCOSE (test code = 140 mg/dL 70-110 H 5424604214) CREATININE (test code = 1.76 mg/dL 0.60-1.25 H 3373179588) CALCIUM (test code = 9.3 mg/dL 8.6-10.6 8274301956) eGFR (test code = mL/min/1.73m2 1827685343) JUAN LUIS (test code = JUAN LUIS) [...] tests). Lab Interpretation Abnormal (test code = 78487-5) [facility] GLUCOSE (AUTOMATED)2020-10-24 01:03:00 Test Item Value Reference Range Interpretation Comments POCT GLU (test code = 1449897513) 117 mg/dL 70-110 H Lab Interpretation (test code = Abnormal 92454-2) [facility] GLUCOSE (AUTOMATED)2020-10-23 23:30:25 Test Item Value Reference Range Interpretation Comments POCT GLU (test code = 1155834483) 129 mg/dL 70-110 H Lab Interpretation (test code = Abnormal 95079-1) [facility] GLUCOSE (AUTOMATED)2020-10-23 18:08:09 Test Item Value Reference Range Interpretation Comments POCT GLU (test code = 8690228696) 125 mg/dL 70-110 H Lab Interpretation (test code = Abnormal 31967-0) [facility] MSSA Screen by Britney [id number] 17:04:24 Test Item Value Reference Range Interpretation Comments MSSA Screen by Britney MTZ (test code Negative Negative = 83151-7) MRSA/MSSA Positive? (test code = No No 0749831251) Lab Interpretation (test code = Normal 89471-3) [facility] WITH [id number] 14:13:40 Test Item Value Reference Range Interpretation [...] (test code = 55.7 fL 38.5-51.6 H 83261-0) RDW-CV (test code = 21.0 % 12.1-15.4 H 788-0) PLT (test code = See_Comment L [Automated 777-3) message] The system which generated this result transmit tennille reference range : 150 - 328 10*3/ ?L. The reference range was not u sed to interpret th is result as normal/abnormal . MPV (test code = Not Measure d 75506-7) IPF % (test code = 6.0 % 1.2-10.7 Platelet count 6116241791) measured by fluorescence method. NRBC/100 WBC (test See_Comment [Automat ed code = 4175129954) message] The system which generated this result transmit tennille reference range : 0.0 - 10.0 /100 WBCs. The reference range was not used to interpret this result as normal/abnormal . NRBC x10^3 (test code <0.01 See_Comment [Auto mated = 1919717290) message] The system which generated this result transmit tennille reference range : 10*3/?L. The reference range was not used to interpret this result as normal/abnormal . GRAN MAT (NEUT) % 87.1 % (test code = 770-8) IMM GRAN % (test code 0.30 % = 8536381105) LYMPH % (test code = 5.7 % 736-9) MONO % (test code = 6.1 % 5905-5) EOS % (test code = 0.5 % 713-8) BASO % (test code = 0.3 % 706-2) GRAN MAT x10^3(ANC) 9.40 10*3/uL 1.99-6.95 H (test code = 2781050051) IMM GRAN x10^3 (test 0.03 10*3/uL 0.00-0.06 code = 4447235960) LYMPH x10^3 (test 0.61 10*3/uL 1.09-3.23 L [...] BANDS (test code = MARKED INCREASED A 5733189549) DOHLE BODIES (test Present A code = 7792-5) Lab Interpretation Abnormal (test code = 88296-1) [facility]2020-10-23 13:07:35 Test Item Value Reference Range Interpretation Comments POCT GLU (test code = 0823646629) 124 mg/dL 70-110 H Lab Interpretation (test code = Abnormal 60131-8) [facility] Packed RBC (in units), 1 Units 2020-10-23 10:02:05 Test Item Value Reference Range Interpretation Comments Cross Match Result Compatible (test code = 4409) ISBT Blood Type Code (test code = 218715) Unit Blood Type (test A Pos code = 4410) Unit Number (test [id number] code = 4411) Blood Expiration Date & Time (test code = 754411) Status Information Issued (test code = 4412) Product Red Blood Cells Identification (test code = 4413) Product Code (test [id number] Performed at [facility] code = 4414) Laboratory Services - [facility] Blood [address] [address]Dlra Free: [phone] A No. [id number] [facility]21-[facility] 09:48:31 Test Item Value Reference Range Interpretation Comments MAGNESIUM (test code = 9110752621) 2.1 mg/dL 1.7-2.4 Lab Interpretation (test code = Normal 04650-5) [facility] WITH [id number] 09:36:10 Test Item Value Reference Range Interpretation [...] RDW-SD (test code = 50.4 fL 38.5-51.6 29980-6) RDW-CV (test code = 19.6 % 12.1-15.4 H 788-0) PLT (test code = See_Comment L [Automated 777-3) message] The system which generated this result transmit tennille reference range : 150 - 328 10*3/ ?L. The reference range was not u sed to interpret th is result as normal/abnormal . MPV (test code = 12.5 fL 9.8-13.0 98826-1) IPF % (test code = 5.6 % 1.2-10.7 Platelet count 4974378241) measured by fluorescence method. NRBC/100 WBC (test See_Comment [Automat ed code = 8135490556) message] The system which generated this result transmit tennille reference range : 0.0 - 10.0 /100 WBCs. The reference range was not used to interpret this result as normal/abnormal . NRBC x10^3 (test code <0.01 See_Comment [Auto mated = 0612021379) message] The system which generated this result transmit tennille reference range : 10*3/?L. The reference range was not used to interpret this result as normal/abnormal . GRAN MAT (NEUT) % 86.0 % (test code = 770-8) IMM GRAN % (test code 0.30 % = 5670320059) LYMPH % (test code = 7.3 % 736-9) MONO % (test code = 5.8 % 5905-5) EOS % (test code = 0.4 % 713-8) BASO % (test code = 0.2 % 706-2) GRAN MAT x10^3(ANC) 7.75 10*3/uL 1.99-6.95 H (test code = 6869011150) IMM GRAN x10^3 (test 0.03 10*3/uL 0.00-0.06 code = 8956100543) LYMPH x10^3 (test 0.66 10*3/uL 1.09-3.23 L [...] BANDS (test code = MARKED INCREASED A 8380003532) TOXIC CHANGES (test Present A code = 803-7) Lab Interpretation Abnormal (test code = 43970-9) [facility] METABOLIC PANEL (NA, K, CL, CO2, GLUCOSE, BUN, CREATININE, CA)2020-10-23 09:20:10 Test Item Value Reference Range Interpretation Comments NA (test code = 140 mmol/L 135-145 8231518786) K (test code = 3.7 mmol/L 3.5-5.0 3294526671) CL (test code = 111 mmol/L 98-108 H 1509541878) CO2 TOTAL (test code = 19 mmol/L 23-31 L 4592787250) AGAP (test code = 2-16 9548654106) BUN (test code = 72 mg/dL 7-23 H 6461648449) GLUCOSE (test code = 103 mg/dL 70-110 8614530056) CREATININE (test code = 1.88 mg/dL 0.60-1.25 H 6979053879) CALCIUM (test code = 9.2 mg/dL 8.6-10.6 6298363489) eGFR (test code = mL/min/1.73m2 6891618922) JUAN LUIS (test code = JUAN LUIS) [...] tests). Lab Interpretation Abnormal (test code = 93771-9) [facility]udaTRROGER [id number] 23:41:10 Test Item Value Reference Range Interpretation Comments TROPONIN I (test 0.092 ng/mL See_Comment H [Automated code = 2637484185) message] The system which generated this result [...] ? Lab Interpretation Abnormal (test code = 30263-3) [facility] WITH [id number] 23:37:34 Test Item Value Reference Range Interpretation [...] RDW-SD (test code = 50.0 fL 38.5-51.6 15453-9) RDW-CV (test code = 19.5 % 12.1-15.4 H 788-0) PLT (test code = See_Comment L [Automated 777-3) message] The system which generated this result transmit tennille reference range : 150 - 328 10*3/ ?L. The reference range was not u sed to interpret th is result as normal/abnormal . MPV (test code = 12.9 fL 9.8-13.0 63129-6) IPF % (test code = 4.4 % 1.2-10.7 Platelet count 1954861012) measured by fluorescence method. NRBC/100 WBC (test See_Comment [Automat ed code = 2545362472) message] The system which generated this result transmit tennille reference range : 0.0 - 10.0 /100 WBCs. The reference range was not used to interpret this result as normal/abnormal . NRBC x10^3 (test code <0.01 See_Comment [Auto mated = 9920313565) message] The system which generated this result transmit tennille reference range : 10*3/?L. The reference range was not used to interpret this result as normal/abnormal . GRAN MAT (NEUT) % 85.1 % (test code = 770-8) IMM GRAN % (test code 0.40 % = 0997764698) LYMPH % (test code = 7.4 % 736-9) MONO % (test code = 6.9 % 5905-5) EOS % (test code = 0.1 % 713-8) BASO % (test code = 0.1 % 706-2) GRAN MAT x10^3(ANC) 8.19 10*3/uL 1.99-6.95 H (test code = 3534510846) IMM GRAN x10^3 (test 0.04 10*3/uL 0.00-0.06 code = 5119473780) LYMPH x10^3 (test 0.71 10*3/uL 1.09-3.23 L [...] BANDS (test code = MARKED INCREASED A 4793458951) Lab Interpretation Abnormal (test code = 01945-3) [facility]uda[facility]ST 1 [id number] 21:40:41 Endotracheal tube in good position. NG tube terminates in the left inferior chest possibly within ahiatalhernia. Correlate clinically. Multifocal infectious/inflammatory interstitial process. RL 4728 CHEST SINGLE VIEW CLINICAL HISTORY: Intubated ORDERING [...] CDTCHEST SINGLE VIEWCLINICAL HISTORY: IntubatedORDERING PHYSICIAN: VONDA STARKSTECHNIQUE: Frontal view of chestCOMPARISON: None available.FINDINGS:Sternotomy wires [...] Correlate clin ically.Multifocal infectious/inflammatory interstitial process.RL [facility] [id number] 20:56:24 Test Item Value Reference Range Interpretation Comments FERRITIN (test code = 2110.0 ng/mL 18.0-464.0 H 5868693323) JUAN LUIS (test code = JUAN LUIS) Biotin has been reported to cause a negative bias, interpret results relative to patient's use of biotin. Lab Interpretation (test Abnormal code = 63749-2) [facility] [id number] 20:56:24 Test Item Value Reference Range Interpretation Comments FERRITIN (test code = 2110.0 ng/mL 18.0-464.0 H 8684006452) JUAN LUIS (test code = JUAN LUIS) Biotin has been reported to cause a negative bias, interpret results relative to patient's use of biotin. Lab Interpretation (test Abnormal code = 71060-1) [facility] [id number] 20:56:24 Test Item Value Reference Range Interpretation Comments FERRITIN (test code = 2110.0 ng/mL 18.0-464.0 H 8570610999) JUAN LUIS (test code = JUAN LUIS) Biotin has been reported to cause a negative bias, interpret results relative to patient's use of biotin. Lab Interpretation (test Abnormal code = 20498-2) [facility]udaGLYCOSYLATED HEMOGLOBIN (A1C)2020-10-22 19:31:47 Test Item Value Reference Range Interpretation Comments HGB A1C (test code = 4548-4) 4.9 % 4.0-6.0 Lab Interpretation (test code = Normal 50466-0) [facility]uda[facility]YCOS[facility] HEMOGLOBIN (A1C)2020-10-22 19:31:47 Test Item Value Reference Range Interpretation Comments HGB A1C (test code = 4548-4) 4.9 % 4.0-6.0 Lab Interpretation (test code = Normal 26333-2) [facility] [facility]udaGLYCOSYL[facility] HEMOGLOBIN (A1C)2020-10-22 19:31:47 Test Item Value Reference Range Interpretation Comments HGB A1C (test code = 4548-4) 4.9 % 4.0-6.0 Lab Interpretation (test code = Normal 60437-2) [facility] [id number] 19:18:54 Test Item Value Reference Range Interpretation Comments IRON (test code = <10 50-160 L 6432410713) TIBC (test code = 145 ug/dL 250-410 L 0149628256) % FE SAT (test code = Unable to calculate 3905402242) because, either iron serum, total ir on binding capacit y, or both are less t moser the sensitivity of the analyzer. Lab Interpretation (test Abnormal code = 12639-8) [facility] [id number] 19:18:54 Test Item Value Reference Range Interpretation Comments IRON (test code = <10 50-160 L 8574407189) TIBC (test code = 145 ug/dL 250-410 L 3135599275) % FE SAT (test code = Unable to calculate 3562925452) because, either iron serum, total ir on binding capacit y, or both are less t moser the sensitivity of the analyzer. Lab Interpretation (test Abnormal code = 98902-3) [facility] [id number] 19:18:54 Test Item Value Reference Range Interpretation Comments IRON (test code = <10 50-160 L 8176511468) TIBC (test code = 145 ug/dL 250-410 L 5326094047) % FE SAT (test code = Unable to calculate 9757527877) because, either iron serum, total ir on binding capacit y, or both are less t moser the sensitivity of the analyzer. Lab Interpretation (test Abnormal code = 22275-8) [id number]:11[facility]37 Test Item Value Reference Range Interpretation Comments TROPONIN I (test 0.099 ng/mL See_Comment H [Automated code = 5229188761) message] The system which generated this result [...] ? Lab Interpretation Abnormal (test code = 05965-1) [facility] WITH [id number] 18:26:52 Test Item Value Reference Range Interpretation [...] RDW-SD (test code = 51.3 fL 38.5-51.6 02909-6) RDW-CV (test code = 19.8 % 12.1-15.4 H 788-0) PLT (test code = See_Comment L [Automated 777-3) message] The system which generated this result transmit tennille reference range : 150 - 328 10*3/ ?L. The reference range was not u sed to interpret th is result as normal/abnormal . MPV (test code = 13.2 fL 9.8-13.0 H 53748-4) IPF % (test code = 4.8 % 1.2-10.7 Platelet count 9760085617) measured by fluorescence method. NRBC/100 WBC (test See_Comment [Automat ed code = 2335433946) message] The system which generated this result transmit tennille reference range : 0.0 - 10.0 /100 WBCs. The reference range was not used to interpret this result as normal/abnormal . NRBC x10^3 (test code <0.01 See_Comment [Auto mated = 0044427036) message] The system which generated this result transmit tennille reference range : 10*3/?L. The reference range was not used to interpret this result as normal/abnormal . GRAN MAT (NEUT) % 85.7 % (test code = 770-8) IMM GRAN % (test code 0.20 % = 6366638531) LYMPH % (test code = 6.1 % 736-9) MONO % (test code = 7.9 % 5905-5) EOS % (test code = 0.0 % 713-8) BASO % (test code = 0.1 % 706-2) GRAN MAT x10^3(ANC) 7.24 10*3/uL 1.99-6.95 H (test code = 0424439742) IMM GRAN x10^3 (test <0.03 0.00-0.06 code = 6217026391) LYMPH x10^3 (test 0.52 10*3/uL 1.09-3.23 L [...] 2+ See_Comment A [Automat ed code = 03178-6) message] The system which generated this result transmit tennille reference range : (none). The reference range was not used to interpret this result as normal/abnormal . SCHISTOCYTES (test 2+ A code = 800-3) BANDS (test code = MARKED INCREASED A 6578465901) Lab Interpretation Abnormal (test code = 94918-7) [facility]udaType [facility] Screen - ONCE [id number] 18:18:46 Test Item Value Reference Range Interpretation Comments ABO & RH (test code A POSITIVE Performe d at [facility] = 20) [facility] Blood [facility] [place] [address] s [address]Gkpj Free: [phone] A No. [id number] IAT (test code = Negative Performed a t [facility] 1185) [facility] Blood [facility]3 [address] [facility] [address]Ldue Free: [phone] A No. [id number] [facility]udaURINALYSIS2021-04-10 18:13:46 Test Item Value Reference Range Interpretation Comments APPEARANCE (test code = Cloudy Clear A 9048359530) COLOR (test code = Yellow Yellow 7297704554) PH (test code = 4.8-8.0 7295376990) SP GRAVITY (test code = 1.003-1.030 4198396985) GLU U QUAL (test code = Normal Normal 3894025936) BLOOD (test code = 2+ Negative A 7152771322) KETONES (test code = Negative Negative 9111893907) PROTEIN (test code = 100 mg/dL Negative A 2887-8) UROBILIN (test code = Normal Normal 3542672330) BILIRUBIN (test code = Negative Negative 1868829709) NITRITE (test code = Negative Negative 4600592649) LEUK SILVIO (test code = 500/uL Negative A 9248114210) RBC/HPF (test code = See_Comment H [Autom ated message] 1730647837) The system [employer] generated this result transmit tennille reference range : 0 - 3 HPF. The refe rence range was not u sed to interpret th is result as normal/abnormal . WBC/HPF (test code = >182 See_Comment H [Autom ated message] 5257039145) The system [employer] generated this result transmit tennille reference range : 0 - 5 HPF. The refe rence range was not u sed to interpret th is result as normal/abnormal . BACTERIA (test code = Few Negative A 8833021539) MUCOUS (test code = Slight Negative LPF A 8868902771) SQ EPITH (test code = See_Comment [Auto mated message] 1006921877) The system [employer] generated this result transmit tennille reference range : <=2 HPF. The refere nce range was not u sed to interpret th is result as normal/abnormal . WBC CLUMPS (test code = See_Comment H [Au tomated message] 0618442673) The system [employer] generated this result transmit tennille reference range : <=1 HPF. The refere nce range was not u sed to interpret th is result as normal/abnormal . HYAL CAST (test code = See_Comment H [Aut omated message] 7522293871) The system [employer] generated this result transmit tennille reference range : <=2 LPF. The refere nce range was not u sed to interpret th is result as normal/abnormal . Lab Interpretation (test Abnormal code = 21478-2) [facility] 18:13:46 Test Item Value Reference Range Interpretation Comments APPEARANCE (test code = Cloudy Clear A 1681488901) COLOR (test code = Yellow Yellow 4136251129) PH (test code = 4.8-8.0 9569313561) SP GRAVITY (test code = 1.003-1.030 6588447928) GLU U QUAL (test code = Normal Normal 0438147877) BLOOD (test code = 2+ Negative A 6744275295) KETONES (test code = Negative Negative 0830825977) PROTEIN (test code = 100 mg/dL Negative A 2887-8) UROBILIN (test code = Normal Normal 0614534633) BILIRUBIN (test code = Negative Negative 6626438186) NITRITE (test code = Negative Negative 9903578701) LEUK SILVIO (test code = 500/uL Negative A 5651882469) RBC/HPF (test code = See_Comment H [Autom ated message] 0341250458) The system [employer] generated this result transmit tennille reference range : 0 - 3 HPF. The refe rence range was not u sed to interpret th is result as normal/abnormal . WBC/HPF (test code = >182 See_Comment H [Autom ated message] 2511030389) The system [employer] generated this result transmit tennille reference range : 0 - 5 HPF. The refe rence range was not u sed to interpret th is result as normal/abnormal . BACTERIA (test code = Few Negative A 3616540139) MUCOUS (test code = Slight Negative LPF A 0210264808) SQ EPITH (test code = See_Comment [Auto mated message] 8880485727) The system [employer] generated this result transmit tennille reference range : <=2 HPF. The refere nce range was not u sed to interpret th is result as normal/abnormal . WBC CLUMPS (test code = See_Comment H [Au tomated message] 1500290680) The system [employer] generated this result transmit tennille reference range : <=1 HPF. The refere nce range was not u sed to interpret th is result as normal/abnormal . HYAL CAST (test code = See_Comment H [Aut omated message] 3683089854) The system [employer] generated this result transmit tennille reference range : <=2 LPF. The refere nce range was not u sed to interpret th is result as normal/abnormal . Lab Interpretation (test Abnormal code = 72103-8) [facility] 18:13:46 Test Item Value Reference Range Interpretation Comments APPEARANCE (test code = Cloudy Clear A 6006885769) COLOR (test code = Yellow Yellow 5130671121) PH (test code = 4.8-8.0 2493951361) SP GRAVITY (test code = 1.003-1.030 9513006035) GLU U QUAL (test code = Normal Normal 2975795698) BLOOD (test code = 2+ Negative A 0329740971) KETONES (test code = Negative Negative 0032389820) PROTEIN (test code = 100 mg/dL Negative A 2887-8) UROBILIN (test code = Normal Normal 3701296140) BILIRUBIN (test code = Negative Negative 9063245483) NITRITE (test code = Negative Negative 8762221334) LEUK SILVIO (test code = 500/uL Negative A 2208770354) RBC/HPF (test code = See_Comment H [Autom ated message] 4617725957) The system [employer] generated this result transmit tennille reference range : 0 - 3 HPF. The refe rence range was not u sed to interpret th is result as normal/abnormal . WBC/HPF (test code = >182 See_Comment H [Autom ated message] 9701287965) The system [employer] generated this result transmit tennille reference range : 0 - 5 HPF. The refe rence range was not u sed to interpret th is result as normal/abnormal . BACTERIA (test code = Few Negative A 6467205639) MUCOUS (test code = Slight Negative LPF A 3728842273) SQ EPITH (test code = See_Comment [Auto mated message] 9863716262) The system [employer] generated this result transmit tennille reference range : <=2 HPF. The refere nce range was not u sed to interpret th is result as normal/abnormal . WBC CLUMPS (test code = See_Comment H [Au tomated message] 7560116374) The system [employer] generated this result transmit tennille reference range : <=1 HPF. The refere nce range was not u sed to interpret th is result as normal/abnormal . HYAL CAST (test code = See_Comment H [Aut omated message] 3860995304) The system [employer] generated this result transmit tennille reference range : <=2 LPF. The refere nce range was not u sed to interpret th is result as normal/abnormal . Lab Interpretation (test Abnormal code = 52010-1) [facility]uda[facility]AT[facility] FUN[facility] PAN[facility] (33185) (ALB,T.PRO,BILI T,BU/BC,ALT,AST,ALK PHOS)2020-10-22 18:07:08 Test Item Value Reference Range Interpretation Comments TOTAL BILI (test code = 9795713701) 0.5 mg/dL 0.1-1.1 BILI UNCON (test code = 2326944035) 0.3 mg/dL 0.1-1.1 BILI CONJ (test code = 6815316145) 0.0 mg/dL 0.0-0.3 T PROTEIN (test code = 1254522870) 5.9 g/dL 6.3-8.2 L ALBUMIN (test code = 3897212469) 3.0 g/dL 3.5-5.0 L ALK PHOS (test code = 6954163234) 60 U/L 34-122 ALTv (test code = 1742-6) 35 U/L 5-50 AST(SGOT) (test code = 8219714649) 48 U/L 13-40 H Lab Interpretation (test code = Abnormal 30325-3) [facility] (87737) (ALB,T.PRO,BILI T,BU/BC,ALT,AST,ALK PHOS)2020-10-22 18:07:08 Test Item Value Reference Range Interpretation Comments TOTAL BILI (test code = 9837154300) 0.5 mg/dL 0.1-1.1 BILI UNCON (test code = 0890649093) 0.3 mg/dL 0.1-1.1 BILI CONJ (test code = 9724805231) 0.0 mg/dL 0.0-0.3 T PROTEIN (test code = 2299181444) 5.9 g/dL 6.3-8.2 L ALBUMIN (test code = 6679863746) 3.0 g/dL 3.5-5.0 L ALK PHOS (test code = 3055096381) 60 U/L 34-122 ALTv (test code = 1742-6) 35 U/L 5-50 AST(SGOT) (test code = 3696390015) 48 U/L 13-40 H Lab Interpretation (test code = Abnormal 40456-4) [facility] METABOLIC PANEL (NA, K, CL, CO2, GLUCOSE, BUN, CREATININE, CA)2020-10-22 18:07:08 Test Item Value Reference Range Interpretation Comments NA (test code = 137 mmol/L 135-145 9891918155) K (test code = 4.2 mmol/L 3.5-5.0 4863314048) CL (test code = 104 mmol/L 98-108 8785531760) CO2 TOTAL (test code = 23 mmol/L 23-31 9736698480) AGAP (test code = 2-16 2109794344) BUN (test code = 82 mg/dL 7-23 H 0507428616) GLUCOSE (test code = 84 mg/dL 70-110 8206974477) CREATININE (test code = 1.88 mg/dL 0.60-1.25 H 5146696428) CALCIUM (test code = 9.9 mg/dL 8.6-10.6 5164359465) eGFR (test code = mL/min/1.73m2 1717285422) JUAN LUIS (test code = JUAN LUIS) [...] tests). Lab Interpretation Abnormal (test code = 15007-5) [facility] (11392[facility] (ALB,T.PRO,BILI T,BU/BC,ALT,AST,ALK PHOS)2020-10-22 18:07:08 Test Item Value Reference Range Interpretation Comments TOTAL BILI (test code = 0624586764) 0.5 mg/dL 0.1-1.1 BILI UNCON (test code = 5379585908) 0.3 mg/dL 0.1-1.1 BILI CONJ (test code = 5983709917) 0.0 mg/dL 0.0-0.3 T PROTEIN (test code = 0171660546) 5.9 g/dL 6.3-8.2 L ALBUMIN (test code = 5731433022) 3.0 g/dL 3.5-5.0 L ALK PHOS (test code = 0859048307) 60 U/L 34-122 ALTv (test code = 1742-6) 35 U/L 5-50 AST(SGOT) (test code = 1280841741) 48 U/L 13-40 H Lab Interpretation (test code = Abnormal 81274-4) [facility]uda[facility]IBRINOGEN2021-04-10 17:54:11 Test Item Value Reference Range Interpretation Comments Fibrinogen (test code = 0654692475) 585 mg/dL 167-453 H Lab Interpretation (test code = Abnormal 52634-9) [facility] BudaPROTHROMBIN TIME / [id number] 17:54:11 Test Item Value Reference Range Interpretation [...] tions. Lab Interpretation (test Abnormal code = 44058-6) [facility]udaAC PANEL 20 + LACTIC [id number] 17:44:46 Test Item Value Reference Range Interpretation Comments PH (test code = 2) 7.35-7.45 H PCO2 (test code = See_Comment L [Automat ed 7887781108) message] The sy stem which generated this result transmitted reference range : 35 - 45 mmHg. The reference range was not used to interpret this result as normal/abnormal . PO2 (test code = See_Comment H [Automated 6816211756) message] The sy stem which generated this result transmitted reference range : 80 - 100 mmHg. The reference range was not used to interpret this result as normal/abnormal . HCO3 (test code = See_Comment L [Automate d 9215490667) message] The sy stem which generated this result transmitted reference range : 22 - 26 mEq/L. The reference range was not used to interpret this result as normal/abnormal . BE (test code = See_Comment [Automated 6928839116) message] The sy stem which generated this result transmitted reference range : -3.0 - 3.0 mEq/ L. The reference r christine was not used to interpret this result as normal/abnormal . THB (test code = 10.9 g/dL 13.5-18.0 L 5816255487) %O2HB (test code = 97.7 % 94.0-99.0 7637777130) %COHB ART (test code = 0.3 % 0.0-1.5 9518049197) %METHB ART (test code = 0.3 % 0.4-1.5 L 0035788251) VOL%O2 ART (test code = 15.1 % 15.0-23.0 8509299480) NA (test code = 134 mmol/L 135-145 L 1828636232) K+ (test code = 4.2 mmol/L 3.5-5.0 4424276544) AC CA IONZ (test code = 5.10 mg/dL 4.50-5.30 6726212527) GLUCOSE (test code = 84 mg/dL 70-110 9766358358) LACTIC ACID (test code 1.39 mmol/L 0.50-2.20 = 2753257229) Lab Interpretation Abnormal (test code = 16525-2) [facility]udaType [facility] Screen - Type and Screen expires at midnight on the 3rd day after it was drawn. A current Type and Screen is required when RBCs are requested. For all other blood products, a Type and Screen performed during the current hospitalization i...2020-05-03 21:04:13 Test Item Value Reference Range Interpretation Comments ABO & RH (test code A Positive Performe d at [facility] = 20) Laboratory [facility] Blood [facility] [place] [address] Free: [phone] A No. [id number] IAT (test code = Negative Performed a t [facility] 1185) Laboratory [facility] [address] [place] [address] Free: [phone] A No. [id number] [facility] BudaTroponin [id number] 20:34:00 Test Item Value Reference Range Interpretation Comments TROPONIN I (test 0.034 ng/mL See_Comment [Automated code = 2163438592) message] The system which generated this result [...] ? Lab Interpretation Normal (test code = 96347-8) [facility]udaN-TERMINAL [id number] 20:31:00 Test Item Value Reference Range Interpretation Comments NT-proBNP (test code 5460 pg/mL See_Comment H [Autom ated = 1952432888) message] The system which generated this result transmitted reference range : <=125. The reference range was not used to interpret this result as normal/abnormal . JUAN LUIS (test code = JUAN LUIS) Biotin has been reported to cause a negative bias, interpret results relative to patient's use of biotin. Lab Interpretation Abnormal (test code = 45530-4) [facility]udaBasi Metabolic Panel (NA, K, CL, CO2, GLUCOSE, BUN, CREATININE, CA)2020-05-03 20:22:00 Test Item Value Reference Range Interpretation Comments NA (test code = 137 mmol/L 135-145 4668269123) K (test code = 4.2 mmol/L 3.5-5 6931046976) CL (test code = 100 mmol/L 98-108 2735675864) CO2 TOTAL (test code = 28 mmol/L 23-31 7500146351) AGAP (test code = 2-16 1173183386) BUN (test code = 55 mg/dL 7-23 H 8135935757) GLUCOSE (test code = 141 mg/dL 70-110 H 8544417982) CREATININE (test code = 1.76 mg/dL 0.6-1.25 H 4005087544) CALCIUM (test code = 9.4 mg/dL 8.6-10.6 2478112538) eGFR Calculation mL/min/1.73m2 (Non-) (test code = 6295196079) eGFR Calculation mL/min/1.73m2 () (test code = 5173462555) JUAN LUIS (test code = JUAN LUIS) [...] tests). Lab Interpretation Abnormal (test code = 47193-5) [facility] BudaHepatic Function Panel (ALB, T.PRO, BILI T, BU/BC, ALT, AST, ALK PHOS)2020-05-03 20:22:00 Test Item Value Reference Range Interpretation Comments TOTAL BILI (test code = 7585367824) 0.5 mg/dL 0.1-1.1 BILI UNCON (test code = 6199232125) 0.5 mg/dL 0.1-1.1 BILI CONJ (test code = 7109358254) 0.0 mg/dL 0-0.3 T PROTEIN (test code = 1897331471) 6.5 g/dL 6.3-8.2 ALBUMIN (test code = 0152834255) 3.6 g/dL 3.5-5 ALK PHOS (test code = 6681078228) 62 U/L 34-122 ALTv (test code = 1742-6) 49 U/L 5-50 AST(SGOT) (test code = 3115032475) 50 U/L 13-40 H Lab Interpretation (test code = Abnormal 71342-4) [facility] with [id number] 20:12:00 Test Item Value Reference Range Interpretation [...] (test code = 35.9 fL 38.5-51.6 L 75452-7) RDW-CV (test code = 15.5 % 12.1-15.4 H 788-0) PLT (test code = See_Comment [Automated 777-3) message] The sy stem which generated this result transmitted reference range : 150 - 328 10*3/ ?L. The reference r christine was not used to interpret this result as normal/abnormal . MPV (test code = 12.7 fL 9.8-13 81508-5) IPF % (test code = 3.0 % 1.2-10.7 Platelet count 8408109650) measured by fluorescence method. NRBC/100 WBC (test See_Comment [Automat ed code = 0447634276) message] The system which generated this result transmitted reference range : 0.0 - 10.0 /100 WBCs. The refer ence range was not u sed to interpret th is result as normal/abnormal . NRBC x10^3 (test code <0.01 See_Comment [Auto mated = 0890630126) message] The s ystem which generated this result transmitted reference range : 10*3/?L. The reference range was not used to interpret this result as normal/abnormal . GRAN MAT (NEUT) % 65.3 % (test code = 770-8) IMM GRAN % (test code 0.30 % = 0852004420) LYMPH % (test code = 19.0 % 736-9) MONO % (test code = 8.6 % 5905-5) EOS % (test code = 6.2 % 713-8) BASO % (test code = 0.6 % 706-2) GRAN MAT x10^3(ANC) 5.10 10*3/uL 1.99-6.95 (test code = 8429992735) IMM GRAN x10^3 (test <0.03 0-0.06 code = 0278382744) LYMPH x10^3 (test code 1.48 10*3/uL 1.09-3.23 = 731-0) MONO x10^3 (test code 0.67 10*3/uL 0.36-1.02 = 742-7) EOS x10^3 (test code = 0.48 10*3/uL 0.06-0.53 711-2) BASO x10^3 (test code 0.05 10*3/uL 0.01-0.09 = 704-7) Lab Interpretation Abnormal (test code = 67004-1) [facility] GLUCOSE (AUTOMATED)2019-10-28 13:00:00 Test Item Value Reference Range Interpretation Comments POCT GLU (test code = 1159214308) 89 mg/dL 70-110 Lab Interpretation (test code = Normal 22878-6) [facility] GLUCOSE (AUTOMATED)2019-10-28 10:36:00 Test Item Value Reference Range Interpretation Comments POCT GLU (test code = 8205833928) 223 mg/dL 70-110 H Lab Interpretation (test code = Abnormal 82581-7) [facility]udaN-TERMINAL [id number] 10:09:00 Test Item Value Reference Range Interpretation Comments NT-proBNP (test code 68659 pg/mL See_Comment H [Autom ated = 6308505243) message] The system which generated this result transmitted reference range : <=125. The reference range was not used to interpret this result as normal/abnormal . JUAN LUIS (test code = JUAN LUIS) Biotin has been reported to cause a negative bias, interpret results relative to patient's use of biotin. Lab Interpretation Abnormal (test code = 32988-7) [facility] BudaCOMP. METABOLIC PANEL (89312)2019-10-28 10:06:00 Test Item Value Reference Range Interpretation Comments NA (test code = 136 mmol/L 135-145 6260864181) K (test code = 5.0 mmol/L 3.5-5 0989036413) CL (test code = 107 mmol/L 98-108 8865461972) CO2 TOTAL (test code = 27 mmol/L 23-31 0374927860) AGAP (test code = 2-16 6736916186) BUN (test code = 50 mg/dL 7-23 H 5735334263) GLUCOSE (test code = 82 mg/dL 70-110 8309965958) CREATININE (test code = 1.76 mg/dL 0.6-1.25 H 9828630443) TOTAL BILI (test code = 0.3 mg/dL 0.1-1.4 6520712521) CALCIUM (test code = 8.9 mg/dL 8.6-10.6 8522730068) T PROTEIN (test code = 5.8 g/dL 6.3-8.2 L 3271391888) ALBUMIN (test code = 3.0 g/dL 3.5-5 L 7132931296) ALK PHOS (test code = 56 U/L 34-122 0027187253) ALTv (test code = 25 U/L 5-50 1742-6) AST(SGOT) (test code = 32 U/L 13-40 6217871272) eGFR Calculation mL/min/1.73m2 (Non-) (test code = 6350669618) eGFR Calculation mL/min/1.73m2 () (test code = 3125831103) JUAN LUIS (test code = JUAN LUIS) [...] tests). Lab Interpretation Abnormal (test code = 47150-1) [facility]udaURIC [id number] 10:06:00 Test Item Value Reference Range Interpretation Comments URIC ACID (test code = 0605629617) 6.2 mg/dL 3.6-8 Lab Interpretation (test code = Normal 11949-3) [facility]udaCB WITH [id number] 09:42:00 Test Item Value Reference Range Interpretation [...] RDW-SD (test code = 47.8 fL 38.5-51.6 49749-2) RDW-CV (test code = 18.8 % 12.1-15.4 H 788-0) PLT (test code = See_Comment [Automated 777-3) message] The sy stem which generated this result transmitted reference range : 150 - 328 10*3/ ?L. The reference r christine was not used to interpret this result as normal/abnormal . MPV (test code = 11.6 fL 9.8-13 90576-8) IPF % (test code = 2.4 % 1.2-10.7 Platelet count 8620670805) measured by fluorescence method. NRBC/100 WBC (test See_Comment [Automat ed code = 0943078799) message] The system which generated this result transmitted reference range : 0.0 - 10.0 /100 WBCs. The refer ence range was not u sed to interpret th is result as normal/abnormal . NRBC x10^3 (test code <0.01 See_Comment [Auto mated = 5604003787) message] The s ystem which generated this result transmitted reference range : 10*3/?L. The reference range was not used to interpret this result as normal/abnormal . GRAN MAT (NEUT) % 55.9 % (test code = 770-8) IMM GRAN % (test code 0.30 % = 6303815871) LYMPH % (test code = 28.2 % 736-9) MONO % (test code = 9.1 % 5905-5) EOS % (test code = 5.3 % 713-8) BASO % (test code = 1.2 % 706-2) GRAN MAT x10^3(ANC) 3.88 10*3/uL 1.99-6.95 (test code = 6841861088) IMM GRAN x10^3 (test <0.03 0-0.06 code = 4898961248) LYMPH x10^3 (test code 1.96 10*3/uL 1.09-3.23 = 731-0) MONO x10^3 (test code 0.63 10*3/uL 0.36-1.02 = 742-7) EOS x10^3 (test code = 0.37 10*3/uL 0.06-0.53 711-2) BASO x10^3 (test code 0.08 10*3/uL 0.01-0.09 = 704-7) Lab Interpretation Abnormal (test code = 19236-0) [facility] GLUCOSE (AUTOMATED)2019-10-28 01:57:00 Test Item Value Reference Range Interpretation Comments POCT GLU (test code = 4387122987) 112 mg/dL 70-110 H Lab Interpretation (test code = Abnormal 27961-7) [facility] GLUCOSE (AUTOMATED)2019-10-27 16:31:00 Test Item Value Reference Range Interpretation Comments POCT GLU (test code = 7567703362) 142 mg/dL 70-110 H Lab Interpretation (test code = Abnormal 57950-1) [facility] GLUCOSE (AUTOMATED)2019-10-27 16:31:00 Test Item Value Reference Range Interpretation Comments POCT GLU (test code = 5857765541) 138 mg/dL 70-110 H Lab Interpretation (test code = Abnormal 03112-2) [facility] / [id number] 16:06:00 Test Item Value Reference Range Interpretation Comments WBC (test code = See_Comment [Automated message] 6690-2) The system [employer] generated this result transmitted ref erence range: 4.20 - 1 0.70 10*3/?L. The reference range was not used to int erpret this result as normal/abnormal . RBC (test code = 789-8) See_Comment L [Au tomated message] The system [employer] generated this result transmitted ref erence range: [...] 777-3) See_Comment [Au tomated message] The system [employer] generated this result transmitted ref erence range: 150 - 32 8 10*3/?L. The reference range was not used to int erpret this result as normal/abnormal . MPV (test code = 11.4 fL 9.8-13 17948-8) RDW-CV (test code = 19.0 % 12.1-15.4 H 788-0) RDW-SD (test code = 48.5 fL 38.5-51.6 21053-9) NRBC x10^3 (test code = <0.01 See_Comment [Au tomated message] 0303328647) The system [employer] generated this result transmitted ref erence range: 10*3/?L. The reference range was not used to int erpret this result as normal/abnormal . NRBC/100 WBC (test code See_Comment [Au tomated message] = 3846854546) The system [employer] generated this result transmitted ref erence range: 0.0 - 10 .0 /100 WBCs. The reference range was not used to int erpret this result as normal/abnormal . IPF % (test code = 2.5 % 1.2-10.7 Platelet count 0412128440) measured by fluorescence me thod. Lab Interpretation Abnormal (test code = 24905-9) [facility] [id number] 15:51:00 Test Item Value Reference Range Interpretation Comments TROPONIN I (test 0.043 ng/mL See_Comment H [Automated code = 6799852211) message] The system which generated this result [...] ? Lab Interpretation Abnormal (test code = 59302-7) [facility]udaURE[facility] NITROGEN, URINE [id number] 15:40:00 Test Item Value Reference Range Interpretation Comments UREA N UR (test code = 3998143894) 531 mg/dL [facility]2019-10-27 12:43:00 Test Item Value Reference Range Interpretation Comments POCT GLU (test code = 4098072687) 140 mg/dL 70-110 H Lab Interpretation (test code = Abnormal 24438-9) [facility]udaPROTEIN CREAT RATIO URINE [id number] 11:43:00 Test Item Value Reference Range Interpretation Comments T. PROT U (test code = 2888-6) 584 mg/dL CREAT U (test code = 2329552811) 28.0 mg/dL Protein/Creatinine Ratio Urine 0.0-2.0 H (test code = 2464968266) Lab Interpretation (test code = Abnormal 32867-2) [facility]udaURINALYSIS2020-04-14 11:12:00 Test Item Value Reference Range Interpretation Comments APPEARANCE (test code = Clear Clear 8415930909) COLOR (test code = Yellow Yellow 3339890103) PH (test code = 4.8-8.0 3085025948) SP GRAVITY (test code = 1.003-1.030 2373987355) GLU U QUAL (test code = 50 mg/dL Normal A 2505330484) BLOOD (test code = Negative Negative 8364761965) KETONES (test code = Negative Negative 3445827770) PROTEIN (test code = 100 mg/dL Negative A 2887-8) UROBILIN (test code = Normal Normal 8150921369) BILIRUBIN (test code = Negative Negative 0910075718) NITRITE (test code = Negative Negative 2507226907) LEUK SILVIO (test code = Negative Negative 0733023300) RBC/HPF (test code = See_Comment H [Autom ated message] 9395544496) The system [employer] generated this result transmit tennille reference range : 0 - 3 HPF. The refe rence range was not u sed to interpret th is result as normal/abnormal . WBC/HPF (test code = See_Comment [Autom ated message] 9007504172) The system [employer] generated this result transmit tennille reference range : 0 - 5 HPF. The refe rence range was not u sed to interpret th is result as normal/abnormal . BACTERIA (test code = Few Negative A 4122555976) MUCOUS (test code = Slight Negative LPF A 6853088132) SQ EPITH (test code = <1 HPF 3937611905) HYAL CAST (test code = See_Comment H [Aut omated message] 3499189070) The system [employer] generated this result transmit tennille reference range : <=2 LPF. The refere nce range was not u sed to interpret th is result as normal/abnormal . Lab Interpretation (test Abnormal code = 26350-1) [facility] [id number] 11:07:00 Test Item Value Reference Range Interpretation Comments NA URINE (test code = 0637848184) 45 mmol/L [facility] GLUCOSE (AUTOMATED)2019-10-27 10:49:00 Test Item Value Reference Range Interpretation Comments POCT GLU (test code = 2665757888) 163 mg/dL 70-110 H Lab Interpretation (test code = Abnormal 21436-8) [facility] BudaTROPONIN [id number] 10:10:00 Test Item Value Reference Range Interpretation Comments TROPONIN I (test 0.035 ng/mL See_Comment H [Automated code = 7539133750) message] The system which generated this result [...] ? Lab Interpretation Abnormal (test code = 84557-9) [facility] BudaN-TERMINAL [id number] 10:07:00 Test Item Value Reference Range Interpretation Comments NT-proBNP (test code 8960 pg/mL See_Comment H [Autom ated = 5828159539) message] The system which generated this result transmitted reference range : <=125. The reference range was not used to interpret this result as normal/abnormal . JUAN LUIS (test code = JUAN LUIS) Biotin has been reported to cause a negative bias, interpret results relative to patient's use of biotin. Lab Interpretation Abnormal (test code = 07485-1) [facility]. METABOLIC PANEL (07438)2019-10-27 10:03:00 Test Item Value Reference Range Interpretation Comments NA (test code = 136 mmol/L 135-145 9530073134) K (test code = 5.2 mmol/L 3.5-5 H 7331419335) CL (test code = 106 mmol/L 98-108 4906096936) CO2 TOTAL (test code = 25 mmol/L 23-31 2742295348) AGAP (test code = 2-16 5161206583) BUN (test code = 54 mg/dL 7-23 H 3371672624) GLUCOSE (test code = 139 mg/dL 70-110 H 1225194142) CREATININE (test code = 1.42 mg/dL 0.6-1.25 H 2839630194) TOTAL BILI (test code = 0.2 mg/dL 0.1-1.8 7788621331) CALCIUM (test code = 8.7 mg/dL 8.6-10.6 4343523947) T PROTEIN (test code = 5.8 g/dL 6.3-8.2 L 0051507416) ALBUMIN (test code = 2.9 g/dL 3.5-5 L 9918855185) ALK PHOS (test code = 53 U/L 34-122 7393312564) ALTv (test code = 21 U/L 5-50 1742-6) AST(SGOT) (test code = 30 U/L 13-40 7459306684) eGFR Calculation mL/min/1.73m2 (Non-) (test code = 2192101452) eGFR Calculation mL/min/1.73m2 () (test code = 2232221639) JUAN LUIS (test code = JUAN LUIS) [...] tests). Lab Interpretation Abnormal (test code = 77022-4) [facility]udaMAGNESIUM2020-04-14 10:01:00 Test Item Value Reference Range Interpretation Comments MAGNESIUM (test code = 6236814518) 2.5 mg/dL 1.7-2.4 H Lab Interpretation (test code = Abnormal 04388-8) [facility] BudaURIC [id number] 10:00:00 Test Item Value Reference Range Interpretation Comments URIC ACID (test code = 9788599097) 5.7 mg/dL 3.6-8 Lab Interpretation (test code = Normal 98962-1) [facility] BudaSEDIMENTATION [id number] 09:58:00 Test Item Value Reference Range Interpretation Comments ESR (test code = See_Comment H [Automated message] 6612261376) The system [employer] generated this result transmitted ref erence range: 0 - 10 m m/HR. The reference r christine was not used to interpret this result as normal/abnor mal. Lab Interpretation (test Abnormal code = 34810-9) [facility] BudaFERRITIN [id number] 09:45:00 Test Item Value Reference Range Interpretation Comments FERRITIN (test code = 829.0 ng/mL 18-464 H 6295680779) JUAN LUIS (test code = JUAN LUIS) Biotin has been reported to cause a negative bias, interpret results relative to patient's use of biotin. Lab Interpretation (test Abnormal code = 14549-4) [facility] WITH [id number] 09:31:00 Test Item Value Reference Range Interpretation [...] RDW-SD (test code = 46.8 fL 38.5-51.6 46545-1) RDW-CV (test code = 19.1 % 12.1-15.4 H 788-0) PLT (test code = See_Comment [Automated 777-3) message] The sy stem which generated this result transmitted reference range : 150 - 328 10*3/ ?L. The reference r christine was not used to interpret this result as normal/abnormal . MPV (test code = 10.9 fL 9.8-13 91858-9) NRBC/100 WBC (test See_Comment [Automat ed code = 6819773040) message] The system which generated this result transmitted reference range : 0.0 - 10.0 /100 WBCs. The refer ence range was not u sed to interpret th is result as normal/abnormal . NRBC x10^3 (test code <0.01 See_Comment [Auto mated = 3800034487) message] The s ystem which generated this result transmitted reference range : 10*3/?L. The reference range was not used to interpret this result as normal/abnormal . GRAN MAT (NEUT) % 79.8 % (test code = 770-8) IMM GRAN % (test code 0.20 % = 0946294331) LYMPH % (test code = 11.9 % 736-9) MONO % (test code = 7.0 % 5905-5) EOS % (test code = 0.6 % 713-8) BASO % (test code = 0.5 % 706-2) GRAN MAT x10^3(ANC) 7.01 10*3/uL 1.99-6.95 H (test code = 3236795463) IMM GRAN x10^3 (test <0.03 0-0.06 code = 3172274633) LYMPH x10^3 (test code 1.04 10*3/uL 1.09-3.23 L = 731-0) MONO x10^3 (test code 0.61 10*3/uL 0.36-1.02 = 742-7) EOS x10^3 (test code = 0.05 10*3/uL 0.06-0.53 L 711-2) BASO x10^3 (test code 0.04 10*3/uL 0.01-0.09 = 704-7) Lab Interpretation Abnormal (test code = 80610-4) [facility] [id number] 09:24:00 Test Item Value Reference Range Interpretation Comments IRON (test code = 7520628793) 46 ug/dL 50-160 L TIBC (test code = 6651587739) 256 ug/dL 250-410 % FE SAT (test code = 0897597673) 18 % 20-50 L Lab Interpretation (test code = Abnormal 73388-8) [facility] [id number] 09:22:00 Test Item Value Reference Range Interpretation Comments TROPONIN I (test 0.040 ng/mL See_Comment H [Automated code = 5461217313) message] The system which generated this result [...] ? Lab Interpretation Abnormal (test code = 32294-1) [facility] BudaGLYCOSYLATED HEMOGLOBIN (A1C)2019-10-27 09:18:00 Test Item Value Reference [...] Indicated Lab Interpretation Normal (test code = 80225-3) [facility]udaURIC [id number] 09:13:00 Test Item Value Reference Range Interpretation Comments URIC ACID (test code = 3566421306) 6.2 mg/dL 3.6-8 Lab Interpretation (test code = Normal 03793-8) [facility] BudaHEPATIC FUNCTION PANEL (45755) (ALB,T.PRO,BILI T,BU/BC,ALT,AST,ALK PHOS)2019-10-27 09:10:00 Test Item Value Reference Range Interpretation Comments TOTAL BILI (test code = 2515605647) 0.2 mg/dL 0.1-1.1 BILI UNCON (test code = 4676701400) 0.4 mg/dL 0.1-1.1 BILI CONJ (test code = 9894903098) 0.0 mg/dL 0-0.3 T PROTEIN (test code = 5958331970) 7.6 g/dL 6.3-8.2 ALBUMIN (test code = 2401764797) 4.0 g/dL 3.5-5 ALK PHOS (test code = 0626566987) 66 U/L 34-122 ALTv (test code = 1742-6) 29 U/L 5-50 AST(SGOT) (test code = 2867720245) 106 U/L 13-40 H Lab Interpretation (test code = Abnormal 59199-9) [facility] BudaLIPID PANEL (62116)(TOTAL CHOLESTEROL, TRIGLYCERIDES, HDL)2019-10-27 09:10:00 Test Item Value Reference Range Interpretation Comments CHOL (test code = 122 mg/dL 120-200 4177845027) HDL (test code = 68 mg/dL >40 7051370758) HDLC RATIO (test code = See_Comment [Au tomated message] 0018835178) The system [employer] generated this result transmit tennille reference range : <=5.0. The refe rence range was not u sed to interpret th is result as normal/abnormal . TRIG (test code = 31 mg/dL 30-170 2893091841) LDL CHOL (test code = 48 mg/dL See_Comment [Auto mated message] 50922-4) The system [employer] generated this result transmit tennille reference range : <=160. The refe rence range was not u sed to interpret th is result as normal/abnormal . VLDL (test code = 6 mg/dL 5-60 9706860556) Lab Interpretation (test Normal code = 92984-0) [facility] BudaCREATINE [id number] 09:10:00 Test Item Value Reference Range Interpretation Comments CK (test code = 4434628051) 174 U/L 33-194 Lab Interpretation (test code = Normal 33208-8) [facility] BudaLIPASE2020-04-14 09:10:00 Test Item Value Reference Range Interpretation Comments LIPASE (test code = 9534180906) 115 U/L 0-220 Lab Interpretation (test code = Normal 42375-7) [facility] BudaMAGNESIUM2020-04-14 09:10:00 Test Item Value Reference Range Interpretation Comments MAGNESIUM (test code = 6987186756) 2.7 mg/dL 1.7-2.4 H Lab Interpretation (test code = Abnormal 50643-5) [facility] BudaPHOSPHORUS2020-04-14 09:10:00 Test Item Value Reference Range Interpretation Comments PHOSPHORUS (test code = 9453015184) 4.4 mg/dL 2.5-5 Lab Interpretation (test code = Normal 45606-6) [facility]udaURIC [id number] 09:09:00 Test Item Value Reference Range Interpretation Comments URIC ACID (test code = 4287986785) 6.3 mg/dL 3.6-8 Lab Interpretation (test code = Normal 09763-8) [facility] GLUCOSE (AUTOMATED)2019-10-27 08:46:00 Test Item Value Reference Range Interpretation Comments POCT GLU (test code = 8892690966) 165 mg/dL 70-110 H Lab Interpretation (test code = Abnormal 84742-1) [facility] GLUCOSE (AUTOMATED)2019-10-27 06:48:00 Test Item Value Reference Range Interpretation Comments POCT GLU (test code = 3843377415) 103 mg/dL 70-110 Lab Interpretation (test code = Normal 09797-8) [facility] GLUCOSE (AUTOMATED)2019-10-27 05:32:00 Test Item Value Reference Range Interpretation Comments POCT GLU (test code = 3060909440) 82 mg/dL 70-110 Lab Interpretation (test code = Normal 94888-4) [facility]udaCORONAVIRUS COVID-19 [id number] 04:55:00 Test Item Value Reference Range Interpretation Comments SARS-CoV-2 (test code = Not Detected Not Detected 75548-8) JUAN LUIS (test code = JUAN LUIS) ID NOW COVID-19 Assay is an isothermal nucleic acid amplification test intended for the qualitative detection of nucleic acid from SARS-CoV-2 viral RNA in nasopharyngeal (HOSPICE NURSE) specimens. It is used under Emergency Use [...] indicated. Lab Interpretation Normal (test code = 18659-9) [facility] WITH [id number] 04:50:00 Test Item Value Reference Range Interpretation Comments WBC (test code = See_Comment [Automated 1390-2) message] The sy stem which generated this [...] RDW-SD (test code = 49.4 fL 38.5-51.6 33082-0) RDW-CV (test code = 19.4 % 12.1-15.4 H 788-0) PLT (test code = See_Comment [Automated 777-3) message] The sy stem which generated this result transmitted reference range : 150 - 328 10*3/ ?L. The reference r christine was not used to interpret this result as normal/abnormal . MPV (test code = 11.8 fL 9.8-13 38830-9) IPF % (test code = 2.6 % 1.2-10.7 Platelet count 7652938483) measured by fluorescence method. NRBC/100 WBC (test See_Comment [Automat ed code = 5915815792) message] The system which generated this result transmitted reference range : 0.0 - 10.0 /100 WBCs. The refer ence range was not u sed to interpret th is result as normal/abnormal . NRBC x10^3 (test code <0.01 See_Comment [Auto mated = 5221400263) message] The s ystem which generated this result transmitted reference range : 10*3/?L. The reference range was not used to interpret this result as normal/abnormal . GRAN MAT (NEUT) % 74.7 % (test code = 770-8) IMM GRAN % (test code 0.40 % = 5610198504) LYMPH % (test code = 11.6 % 736-9) MONO % (test code = 10.8 % 5905-5) EOS % (test code = 1.9 % 713-8) BASO % (test code = 0.6 % 706-2) GRAN MAT x10^3(ANC) 7.51 10*3/uL 1.99-6.95 H (test code = 6135993963) IMM GRAN x10^3 (test 0.04 10*3/uL 0-0.06 code = 0644371922) LYMPH x10^3 (test code 1.16 10*3/uL 1.09-3.23 = 731-0) MONO x10^3 (test code 1.08 10*3/uL 0.36-1.02 H = 742-7) EOS x10^3 (test code = 0.19 10*3/uL 0.06-0.53 711-2) BASO x10^3 (test code 0.06 10*3/uL 0.01-0.09 = 704-7) Lab Interpretation Abnormal (test code = 46932-6) [facility]udaPOLA GLUCOSE (AUTOMATED)2019-10-27 04:33:00 Test Item Value Reference Range Interpretation Comments POCT GLU (test code = 5316039531) 51 mg/dL 70-110 L Lab Interpretation (test code = Abnormal 47247-0) [facility] METABOLIC PANEL (NA, K, CL, CO2, GLUCOSE, BUN, CREATININE, CA)2019-10-27 03:51:00 Test Item Value Reference Range Interpretation Comments NA (test code = 140 mmol/L 135-145 4763220097) K (test code = 4.7 mmol/L 3.5-5 6695843663) CL (test code = 106 mmol/L 98-108 1565799361) CO2 TOTAL (test code = 27 mmol/L 23-31 8039300207) AGAP (test code = 2-16 2388316429) BUN (test code = 59 mg/dL 7-23 H 1259348982) GLUCOSE (test code = <20 70-110 LL 0180914428) CREATININE (test code = 1.57 mg/dL 0.6-1.25 H 4028939697) CALCIUM (test code = 9.6 mg/dL 8.6-10.6 5463499733) eGFR Calculation mL/min/1.73m2 (Non-) (test code = 2395307784) eGFR Calculation mL/min/1.73m2 () (test code = 2040147178) JUAN LUIS (test code = JUAN LUIS) [...] tests). Lab Interpretation Abnormal (test code = 76415-7) [facility] GLUCOSE (AUTOMATED)2019-10-27 03:34:00 Test Item Value Reference Range Interpretation Comments POCT GLU (test code = 4012465014) 69 mg/dL 70-110 L Lab Interpretation (test code = Abnormal 61020-2) [facility] GLUCOSE (AUTOMATED)2019-10-27 03:01:00 Test Item Value Reference Range Interpretation Comments POCT GLU (test code = 8610138880) 26 mg/dL 70-110 LL Lab Interpretation (test code = Abnormal 53417-7) [facility] GLUCOSE (AUTOMATED)2019-10-01 16:55:00 Test Item Value Reference Range Interpretation Comments POCT GLU (test code = 2310162640) 182 mg/dL 70-110 H Lab Interpretation (test code = Abnormal 86073-0) [facility] (NA, K, CL, CO2, GLUCOSE, BUN, CREATININE, CA)2019-10-01 13:17:00 Test Item Value Reference Range Interpretation Comments NA (test code = 137 mmol/L 135-145 6283140932) K (test code = 5.1 mmol/L 3.5-5 H 6903199267) CL (test code = 104 mmol/L 98-108 7550210609) CO2 TOTAL (test code = 24 mmol/L 23-31 9981271294) AGAP (test code = 2-16 5411913614) BUN (test code = 40 mg/dL 7-23 H 9724480172) GLUCOSE (test code = 98 mg/dL 70-110 0190130072) CREATININE (test code = 1.72 mg/dL 0.6-1.25 H 6338842513) CALCIUM (test code = 8.3 mg/dL 8.6-10.6 L 9521217759) eGFR Calculation mL/min/1.73m2 (Non-) (test code = 5055759801) eGFR Calculation mL/min/1.73m2 () (test code = 6318155937) JUAN LUIS (test code = JUAN LUIS) [...] tests). Lab Interpretation Abnormal (test code = 01242-6) [facility] GLUCOSE (AUTOMATED)2019-10-01 13:04:00 Test Item Value Reference Range Interpretation Comments POCT GLU (test code = 1624673629) 163 mg/dL 70-110 H Lab Interpretation (test code = Abnormal 01100-2) [facility] GLUCOSE (AUTOMATED)2019-10-01 02:08:00 Test Item Value Reference Range Interpretation Comments POCT GLU (test code = 9318116024) 156 mg/dL 70-110 H Lab Interpretation (test code = Abnormal 93603-8) [facility] GLUCOSE (AUTOMATED)2019-09-30 21:47:00 Test Item Value Reference Range Interpretation Comments POCT GLU (test code = 4812337397) 139 mg/dL 70-110 H Lab Interpretation (test code = Abnormal 97622-8) [facility] (GUAI[place]) [id number] 17:06:00 Test Item Value Reference Range Interpretation Comments Occult (guaiac) Blood (test code = Negative Negative 2335-8) Lab Interpretation (test code = Normal 83004-4) [facility] GLUCOSE (AUTOMATED)2019-09-30 17:06:00 Test Item Value Reference Range Interpretation Comments POCT GLU (test code = 3357788188) 83 mg/dL 70-110 Lab Interpretation (test code = Normal 45807-5) [facility] GLUCOSE (AUTOMATED)2019-09-30 13:35:00 Test Item Value Reference Range Interpretation Comments POCT GLU (test code = 7797241131) 225 mg/dL 70-110 H Lab Interpretation (test code = Abnormal 77589-6) [facility] Metabolic Panel (NA, K, CL, CO2, GLUCOSE, BUN, CREATININE, CA)2019-09-30 08:40:00 Test Item Value Reference Range Interpretation Comments NA (test code = 137 mmol/L 135-145 4767315403) K (test code = 4.7 mmol/L 3.5-5 6071984277) CL (test code = 105 mmol/L 98-108 3208529269) CO2 TOTAL (test code = 24 mmol/L 23-31 6742111323) AGAP (test code = 2-16 3727307467) BUN (test code = 45 mg/dL 7-23 H 2405801766) GLUCOSE (test code = 227 mg/dL 70-110 H 4507072449) CREATININE (test code = 1.89 mg/dL 0.6-1.25 H 9609334957) CALCIUM (test code = 8.4 mg/dL 8.6-10.6 L 8242068262) eGFR Calculation mL/min/1.73m2 (Non-) (test code = 0929524469) eGFR Calculation mL/min/1.73m2 () (test code = 1451052787) JUAN LUIS (test code = JUAN LUIS) [...] tests). Lab Interpretation Abnormal (test code = 12486-4) [facility] BudaMagnesium [id number] 08:40:00 Test Item Value Reference Range Interpretation Comments MAGNESIUM (test code = 6960258791) 2.2 mg/dL 1.7-2.4 Lab Interpretation (test code = Normal 26116-6) [facility] BudaCT THORAX WO [id number] 03:37:29 1. 6.4 x 6.9 cm left [...] lymphadenopathy.6. Status post CABG.RL: 6190End of report UnCH[facility] KlebergUrinalysis2020-03-18 02:46:00 Test Item Value Reference Range Interpretation Comments APPEARANCE (test code = Clear Clear 8174894827) COLOR (test code = Straw Yellow A 9029429977) PH (test code = 4.8-8.0 3473945595) SP GRAVITY (test code = 1.003-1.030 2040210421) GLU U QUAL (test code = Normal Normal 6677821961) BLOOD (test code = Negative Negative 1279114911) KETONES (test code = Negative Negative 7252678348) PROTEIN (test code = 100 mg/dL Negative A 2887-8) UROBILIN (test code = Normal Normal 7275287178) BILIRUBIN (test code = Negative Negative 0868266164) NITRITE (test code = Negative Negative 3760827135) LEUK SILVIO (test code = Negative Negative 8079321498) RBC/HPF (test code = See_Comment [Autom ated message] 2135841873) The system [employer] generated this result transmit tennille reference range : 0 - 3 HPF. The refe rence range was not u sed to interpret th is result as normal/abnormal . WBC/HPF (test code = <1 See_Comment [Autom ated message] 7828574845) The system [employer] generated this result transmit tennille reference range : 0 - 5 HPF. The refe rence range was not u sed to interpret th is result as normal/abnormal . BACTERIA (test code = Negative Negative 1935802224) Lab Interpretation (test Abnormal code = 34208-9) [facility]udaPO[facility]AUTOMATED)2019-09-30 01:30:00 Test Item Value Reference Range Interpretation Comments POCT GLU (test code = 6069887068) 180 mg/dL 70-110 H Lab Interpretation (test code = Abnormal 89717-3) [facility] BudaTroponin [id number] 22:35:00 Test Item Value Reference Range Interpretation Comments TROPONIN I (test 0.029 ng/mL See_Comment [Automated code = 6907716798) message] The system which generated this result transmitted reference range : <=0.034. The reference range was not used to interpret this result as normal/abnormal . JUAN LUIS (test code = Equal or Less than JUAN LIUS) 0.034 ng/ml---Normal ?Note: Cardiac troponin begins to [...] ? Lab Interpretation Normal (test code = 57225-2) [facility]uda[facility] [id number] 22:35:00 Test Item Value Reference Range Interpretation Comments NT-proBNP (test code 08917 pg/mL See_Comment H [Autom ated = 2745336491) message] The system which generated this result transmitted reference range : <=125. The reference range was not used to interpret this result as normal/abnormal . JUAN LUIS (test code = JUAN LUIS) Biotin has been reported to cause a negative bias, interpret results relative to patient's use of biotin. Lab Interpretation Abnormal (test code = 23385-6) [facility]udaXR FOOT 3+ VW [id number] 22:25:411. No acute fracture. EXAM: Right foot 3 views HISTORY: Pain TECHNIQUE:AP, lateral, oblique view ofthe right foot is obtained. FINDINGS:No acute fracture or dislocation is identified. Degenerativechanges are seen in the MTP joint and DIP joint of the great toe. A plantarcalcaneal spur is present. Generalized osteopenia is noted. Mild soft tissue swelling is seen in the midfoot. [facility], Radiant Results Inft User - 09/29/2019 5:26 PM CDTEXAM: Right foot 3 viewsHISTORY: PainTECHNIQUE:AP, lateral, oblique view of the right foot is obtained.FINDINGS:No acute fracture or dislocation is identified. Degene rativechanges are seen in the MTP joint and DIP joint of the great toe. A plantarcalcaneal spur is present. Generalized osteopenia is noted.Mild soft tissue swelling is seen in the midfoot.IMPRESSION1.No acute fracture.[facility] 1 [id number] 22:23:02CHEST ONE VIEW HISTORY: ?SOB TECHNIQUE: ?AP [...] lefthemidiaphragm2. Small left pleural effusion and mild cardiomegalyUnCHRISTUS [facility] Met[facility] Panel (NA, K, CL, CO2, GLUCOSE, BUN, CREATININE, CA)2019-09-29 22:23:00 Test Item Value Reference Range Interpretation Comments NA (test code = 136 mmol/L 135-145 1371720404) K (test code = 5.3 mmol/L 3.5-5 H 3190193594) CL (test code = 104 mmol/L 98-108 0464131563) CO2 TOTAL (test code = 23 mmol/L 23-31 6824712550) AGAP (test code = 2-16 6504903101) BUN (test code = 50 mg/dL 7-23 H 8845225167) GLUCOSE (test code = 76 mg/dL 70-110 6516822698) CREATININE (test code = 1.92 mg/dL 0.6-1.25 H 6346949055) CALCIUM (test code = 8.6 mg/dL 8.6-10.6 7774467333) eGFR Calculation mL/min/1.73m2 (Non-) (test code = 8016425827) eGFR Calculation mL/min/1.73m2 () (test code = 0544492056) JUAN LUIS (test code = JUAN LUIS) [...] tests). Lab Interpretation Abnormal (test code = 29929-9) [facility] BudaHepatic Function Panel (ALB, T.PRO, BILI T, BU/BC, ALT, AST, ALK PHOS)2019-09-29 22:23:00 Test Item Value Reference Range Interpretation Comments TOTAL BILI (test code = 2565388625) 0.3 mg/dL 0.1-1.1 BILI UNCON (test code = 5737443450) 0.2 mg/dL 0.1-1.1 BILI CONJ (test code = 0208146798) 0.0 mg/dL 0-0.3 T PROTEIN (test code = 5888402329) 6.3 g/dL 6.3-8.2 ALBUMIN (test code = 5406081100) 3.1 g/dL 3.5-5 L ALK PHOS (test code = 6285698928) 95 U/L 34-122 ALTv (test code = 1742-6) 15 U/L 5-50 AST(SGOT) (test code = 4154298091) 19 U/L 13-40 Lab Interpretation (test code = Abnormal 26838-6) [facility] BudaaPTT2020-03-17 22:13:00 Test Item Value Reference Range Interpretation Comments APTT Patient (test code = See_Comment [ Automated message] 3173-2) The system [employer] h generated this result transmitted ref erence range: 26 - 36 Seconds. The re ference range was not u sed to interpret this result as normal/abnor mal. Lab Interpretation (test Normal code = 47138-4) [facility] BudaProthrombin Time (PT) / [id number] 22:13:00 Test Item Value Reference Range Interpretation Comments PROTIME PATIENT (test See_Comment [Auto mated message] code = 5964-2) The system [employer] ich generated this result transmitted ref erence range: 10.1 - 1 2.6 Seconds. The re ference range was not u sed to interpret this result as normal/abnor mal. INR (test code = 6301-6) Nor mal INR <1.1; Warfarin Therap eutic range 2.0 to 3. 0 or 2.5 to 3.5, dep ending upon the indica tions. Lab Interpretation (test Normal code = 20651-2) [facility]udaCB WITH [id number] 22:09:00 Test Item Value Reference Range Interpretation [...] (test code = 55.0 fL 38.5-51.6 H 39611-0) RDW-CV (test code = 22.0 % 12.1-15.4 H 788-0) PLT (test code = See_Comment H [Automated 777-3) message] The sy stem which generated this result transmitted reference range : 150 - 328 10*3/ ?L. The reference r christine was not used to interpret this result as normal/abnormal . MPV (test code = 11.1 fL 9.8-13 47518-9) NRBC/100 WBC (test See_Comment [Automat ed code = 5548003316) message] The system which generated this result transmitted reference range : 0.0 - 10.0 /100 WBCs. The refer ence range was not u sed to interpret th is result as normal/abnormal . NRBC x10^3 (test code <0.01 See_Comment [Auto mated = 7048090433) message] The s ystem which generated this result transmitted reference range : 10*3/?L. The reference range was not used to interpret this result as normal/abnormal . GRAN MAT (NEUT) % 65.4 % (test code = 770-8) IMM GRAN % (test code 0.30 % = 8538121706) LYMPH % (test code = 18.2 % 736-9) MONO % (test code = 10.9 % 5905-5) EOS % (test code = 4.3 % 713-8) BASO % (test code = 0.9 % 706-2) GRAN MAT x10^3(ANC) 5.73 10*3/uL 1.99-6.95 (test code = 7505994957) IMM GRAN x10^3 (test 0.03 10*3/uL 0-0.06 code = 0453027016) LYMPH x10^3 (test code 1.60 10*3/uL 1.09-3.23 = 731-0) MONO x10^3 (test code 0.96 10*3/uL 0.36-1.02 = 742-7) EOS x10^3 (test code = 0.38 10*3/uL 0.06-0.53 711-2) BASO x10^3 (test code 0.08 10*3/uL 0.01-0.09 = 704-7) Lab Interpretation Abnormal (test code = 89507-4) [facility]. METABOLIC PANEL (21269)2019-09-29 16:09:00 Test Item Value Reference Range Interpretation Comments NA (test code = 136 mmol/L 135-145 8489082445) K (test code = 5.4 mmol/L 3.5-5 H 8608505674) CL (test code = 105 mmol/L 98-108 7028775522) CO2 TOTAL (test code = 23 mmol/L 23-31 2849418438) AGAP (test code = 2-16 7758790233) BUN (test code = 53 mg/dL 7-23 H 8859375522) GLUCOSE (test code = 242 mg/dL 70-110 H 0581200858) CREATININE (test code = 1.97 mg/dL 0.6-1.25 H 4617614349) TOTAL BILI (test code = 0.1 mg/dL 0.1-1.6 8212102626) CALCIUM (test code = 8.6 mg/dL 8.6-10.6 4515985441) T PROTEIN (test code = 6.0 g/dL 6.3-8.2 L 4185674698) ALBUMIN (test code = 2.9 g/dL 3.5-5 L 6139638651) ALK PHOS (test code = 91 U/L 34-122 4311577939) ALTv (test code = 15 U/L 5-50 1742-6) AST(SGOT) (test code = 22 U/L 13-40 1676633240) eGFR Calculation mL/min/1.73m2 (Non-) (test code = 8426747345) eGFR Calculation mL/min/1.73m2 () (test code = 6076067198) JUAN LUIS (test code = JUAN LUIS) [...] tests). Lab Interpretation Abnormal (test code = 75067-1) [facility] WITH [id number] 15:42:00 Test Item Value Reference Range Interpretation [...] (test code = 55.4 fL 38.5-51.6 H 81468-5) RDW-CV (test code = 22.5 % 12.1-15.4 H 788-0) PLT (test code = See_Comment [Automated 777-3) message] The sy stem which generated this result transmitted reference range : 150 - 328 10*3/ ?L. The reference r christine was not used to interpret this result as normal/abnormal . MPV (test code = 12.0 fL 9.8-13 43702-5) NRBC/100 WBC (test See_Comment [Automat ed code = 6305033122) message] The system which generated this result transmitted reference range : 0.0 - 10.0 /100 WBCs. The refer ence range was not u sed to interpret th is result as normal/abnormal . NRBC x10^3 (test code <0.01 See_Comment [Auto mated = 5783585030) message] The s ystem which generated this result transmitted reference range : 10*3/?L. The reference range was not used to interpret this result as normal/abnormal . GRAN MAT (NEUT) % 71.8 % (test code = 770-8) IMM GRAN % (test code 0.40 % = 2090281172) LYMPH % (test code = 13.9 % 736-9) MONO % (test code = 9.4 % 5905-5) EOS % (test code = 3.8 % 713-8) BASO % (test code = 0.7 % 706-2) GRAN MAT x10^3(ANC) 5.49 10*3/uL 1.99-6.95 (test code = 5979477443) IMM GRAN x10^3 (test 0.03 10*3/uL 0-0.06 code = 3234892847) LYMPH x10^3 (test code 1.06 10*3/uL 1.09-3.23 L = 731-0) MONO x10^3 (test code 0.72 10*3/uL 0.36-1.02 = 742-7) EOS x10^3 (test code = 0.29 10*3/uL 0.06-0.53 711-2) BASO x10^3 (test code 0.05 10*3/uL 0.01-0.09 = 704-7) Lab Interpretation Abnormal (test code = 17825-1) [facility] CHEST 2 [id number] 15:03:28HISTORY: S/P CABG. TECHNIQUE: PA and lateral [...] COPD, minimal congestion/atelectatic changes inthe left lung base.[facility], Radiant Results Inft User - 09/29/2019 10:04 [...] minimal congestion/atelectatic changes inthe left lung base. [facility] BudaREFERRNC OCCUPATIONAL [id number] 00:00:00Consult received and chart reviewed via [employer]. ?Please refer to progress note for details. ? Gordo [phone] pgr.[facility] BudaREFERRNC OCCUPATIONAL [id number] 00:00:00Consult received and verbal order placed 09-21-2019 for patient seen in clinic 09-21-2019. ?Please refer to progress note for details. Gordo [phone] pgr.[facility]udaXR CHEST 2 [id number] 01:43:48Impression:1. Persistent but improved left pleural effusion and left basilaratelectasis. Location Code: 2831 Clinical statement: cough, hx of open heart surgery 2 weeks ago Ordering physician: Gisselle Kwon Chest two view. Comparison: August Findings:Median sternotomy present. Large cardiac silhouette is seen. Small lefteffusion and basilar atelectasis is present. This has improved. Nopneumothorax. No lobar consolidation. Bone demineralization stable. Theremainder is unchanged. [facility], Radiant Results Inft User - 09/18/2019 7:44 PM CSTClinical statement: cough, hx of open heart surgery 2 weeks ago Ordering [facility].Comparison: AugustFindings:Median sternotomy present. Large cardiac silhouette is seen. Small lefteffusion and basilar atelectasis is present. This has improved. Nopneumothorax. No lobar consolidation. Bone demineralization stable. Theremainder is unchanged.IMPRESSIONImpression:1. Persistent but improved left pleural effusion and left basilaratelectasis.Location Code: 2831 [facility]SE (AUTOMATED)2019-09-15 18:20:00 Test Item Value Reference Range Interpretation Comments POCT GLU (test code = 8242449441) 160 mg/dL 70-110 H Lab Interpretation (test code = Abnormal 35271-7) [facility] BudaSPUTUM [id number] 18:07:00 Test Item Value Reference Range Interpretation Comments SPUTUM CULTURE 1+ Respiratory alla: (test code = Commensal upper respiratory 622-1) microorganisms only. Gram stain (test Occasional (Rare) code = 664-3) Polymorphonuclear leukocytes JUAN LUIS (test code = Bacterial pathogens JUAN LUIS) associated with lower respiratory infections were not identified, which include Pseudomonas aeruginosa and Staphylococcus aureus (MRSA or MSSA). [facility] METABOLIC PANEL (NA, K, CL, CO2, GLUCOSE, BUN, CREATININE, CA)2019-09-15 17:31:00 Test Item Value Reference Range Interpretation Comments NA (test code = 137 mmol/L 135-145 2957217584) K (test code = 4.2 mmol/L 3.5-5 4907323297) CL (test code = 99 mmol/L 98-108 0241501322) CO2 TOTAL (test code = 30 mmol/L 23-31 6521092363) AGAP (test code = 2-16 5098949931) BUN (test code = 31 mg/dL 7-23 H 1225803907) GLUCOSE (test code = 156 mg/dL 70-110 H 7461097806) CREATININE (test code = 0.94 mg/dL 0.6-1.25 2615979456) CALCIUM (test code = 8.1 mg/dL 8.6-10.6 L 3649792579) eGFR Calculation mL/min/1.73m2 (Non-) (test code = 4904367829) eGFR Calculation mL/min/1.73m2 () (test code = 5966708443) JUAN LUIS (test code = JUAN LUIS) [...] tests). Lab Interpretation Abnormal (test code = 88648-4) [facility] WITH [id number] 17:11:00 Test Item Value Reference Range Interpretation [...] (test code = 55.8 fL 38.5-51.6 H 74566-8) RDW-CV (test code = 22.6 % 12.1-15.4 H 788-0) PLT (test code = See_Comment H [Automated 777-3) message] The sy stem which generated this result transmitted reference range : 150 - 328 10*3/ ?L. The reference r christine was not used to interpret this result as normal/abnormal . MPV (test code = 10.6 fL 9.8-13 39358-6) NRBC/100 WBC (test See_Comment [Automat ed code = 4044417542) message] The system which generated this result transmitted reference range : 0.0 - 10.0 /100 WBCs. The refer ence range was not u sed to interpret th is result as normal/abnormal . NRBC x10^3 (test code <0.01 See_Comment [Auto mated = 9591613846) message] The s ystem which generated this result transmitted reference range : 10*3/?L. The reference range was not used to interpret this result as normal/abnormal . GRAN MAT (NEUT) % 78.3 % (test code = 770-8) IMM GRAN % (test code 0.30 % = 3274546188) LYMPH % (test code = 11.7 % 736-9) MONO % (test code = 7.2 % 5905-5) EOS % (test code = 2.2 % 713-8) BASO % (test code = 0.3 % 706-2) GRAN MAT x10^3(ANC) 9.12 10*3/uL 1.99-6.95 H (test code = 0273344996) IMM GRAN x10^3 (test 0.04 10*3/uL 0-0.06 code = 3312854740) LYMPH x10^3 (test code 1.36 10*3/uL 1.09-3.23 = 731-0) MONO x10^3 (test code 0.84 10*3/uL 0.36-1.02 = 742-7) EOS x10^3 (test code = 0.26 10*3/uL 0.06-0.53 711-2) BASO x10^3 (test code 0.03 10*3/uL 0.01-0.09 = 704-7) Lab Interpretation Abnormal (test code = 51287-6) [facility] GLUCOSE (AUTOMATED)2019-09-15 14:16:00 Test Item Value Reference Range Interpretation Comments POCT GLU (test code = 5472560433) 114 mg/dL 70-110 H Lab Interpretation (test code = Abnormal 21390-4) [facility] GLUCOSE (AUTOMATED)2019-09-15 03:22:00 Test Item Value Reference Range Interpretation Comments POCT GLU (test code = 5210948087) 128 mg/dL 70-110 H Lab Interpretation (test code = Abnormal 28704-4) [facility] GLUCOSE (AUTOMATED)2019-09-14 22:37:00 Test Item Value Reference Range Interpretation Comments POCT GLU (test code = 2174412954) 133 mg/dL 70-110 H Lab Interpretation (test code = Abnormal 41589-9) [facility] GLUCOSE (AUTOMATED)2019-09-14 18:45:00 Test Item Value Reference Range Interpretation Comments POCT GLU (test code = 9920300953) 143 mg/dL 70-110 H Lab Interpretation (test code = Abnormal 47932-1) [facility] CHEST 1 [id number] 14:19:08 Bilateral hazy and patchy airspace opacities [...] leftlung may represent an atelectasis or pneumonia. [facility]udaPOLA GLUCOSE (AUTOMATED)2019-09-14 13:30:00 Test Item Value Reference Range Interpretation Comments POCT GLU (test code = 6061316127) 78 mg/dL 70-110 Lab Interpretation (test code = Normal 79722-7) [facility] METABOLIC PANEL (NA, K, CL, CO2, GLUCOSE, BUN, CREATININE, CA)2019-09-14 10:04:00 Test Item Value Reference Range Interpretation Comments NA (test code = 136 mmol/L 135-145 1696256936) K (test code = 4.2 mmol/L 3.5-5 6291734745) CL (test code = 102 mmol/L 98-108 8559090251) CO2 TOTAL (test code = 30 mmol/L 23-31 4553864640) AGAP (test code = 2-16 7054084619) BUN (test code = 33 mg/dL 7-23 H 1041800911) GLUCOSE (test code = 98 mg/dL 70-110 1843762031) CREATININE (test code = 1.00 mg/dL 0.6-1.25 9353775878) CALCIUM (test code = 7.5 mg/dL 8.6-10.6 L 5365386780) eGFR Calculation mL/min/1.73m2 (Non-) (test code = 5830700024) eGFR Calculation mL/min/1.73m2 () (test code = 8725997988) JUAN LUIS (test code = JUAN LUIS) [...] tests). Lab Interpretation Abnormal (test code = 61453-0) [facility] Test Item Value Reference Range Interpretation Comments MAGNESIUM (test code = 9327558261) 2.1 mg/dL 1.7-2.4 Lab Interpretation (test code = Normal 67475-1) [facility] GLUCOSE (AUTOMATED)2019-09-14 08:13:00 Test Item Value Reference Range Interpretation Comments POCT GLU (test code = 5075428705) 71 mg/dL 70-110 Lab Interpretation (test code = Normal 64842-3) [facility] GLUCOSE (AUTOMATED)2019-09-14 02:25:00 Test Item Value Reference Range Interpretation Comments POCT GLU (test code = 0854516817) 53 mg/dL 70-110 L Lab Interpretation (test code = Abnormal 03052-9) [facility] GLUCOSE (AUTOMATED)2019-09-13 23:06:00 Test Item Value Reference Range Interpretation Comments POCT GLU (test code = 8913195365) 140 mg/dL 70-110 H Lab Interpretation (test code = Abnormal 30394-4) [facility] GLUCOSE (AUTOMATED)2019-09-13 17:45:00 Test Item Value Reference Range Interpretation Comments POCT GLU (test code = 9337337507) 260 mg/dL 70-110 H Lab Interpretation (test code = Abnormal 76760-3) [facility] GLUCOSE (AUTOMATED)2019-09-13 14:07:00 Test Item Value Reference Range Interpretation Comments POCT GLU (test code = 3509106034) 194 mg/dL 70-110 H Lab Interpretation (test code = Abnormal 65798-6) [facility] (NA, K, CL, CO2, GLUCOSE, BUN, CREATININE, CA)2019-09-13 10:14:00 Test Item Value Reference Range Interpretation Comments NA (test code = 135 mmol/L 135-145 6361679786) K (test code = 4.4 mmol/L 3.5-5 6551502649) CL (test code = 101 mmol/L 98-108 7057506435) CO2 TOTAL (test code = 27 mmol/L 23-31 1655683698) AGAP (test code = 2-16 1020195756) BUN (test code = 34 mg/dL 7-23 H 3361362730) GLUCOSE (test code = 178 mg/dL 70-110 H 3505589553) CREATININE (test code = 1.02 mg/dL 0.6-1.25 5081203213) CALCIUM (test code = 7.8 mg/dL 8.6-10.6 L 1812807066) eGFR Calculation mL/min/1.73m2 (Non-) (test code = 2572635234) eGFR Calculation mL/min/1.73m2 () (test code = 2099144344) JUAN LUIS (test code = JUAN LUIS) [...] tests). Lab Interpretation Abnormal (test code = 60791-5) [facility]udaMAGNESIUM2020-03-01 10:14:00 Test Item Value Reference Range Interpretation Comments MAGNESIUM (test code = 5302410176) 2.2 mg/dL 1.7-2.4 Lab Interpretation (test code = Normal 05621-2) [facility] WITH [id number] 10:01:00 Test Item Value Reference Range Interpretation [...] (test code = 57.0 fL 38.5-51.6 H 67031-5) RDW-CV (test code = 22.5 % 12.1-15.4 H 788-0) PLT (test code = See_Comment [Automated 777-3) message] The sy stem which generated this result transmitted reference range : 150 - 328 10*3/ ?L. The reference r christine was not used to interpret this result as normal/abnormal . MPV (test code = 10.4 fL 9.8-13 23826-6) NRBC/100 WBC (test See_Comment [Automat ed code = 1356715334) message] The system which generated this result transmitted reference range : 0.0 - 10.0 /100 WBCs. The refer ence range was not u sed to interpret th is result as normal/abnormal . NRBC x10^3 (test code <0.01 See_Comment [Auto mated = 3521984590) message] The s ystem which generated this result transmitted reference range : 10*3/?L. The reference range was not used to interpret this result as normal/abnormal . GRAN MAT (NEUT) % 77.6 % (test code = 770-8) IMM GRAN % (test code 0.70 % = 7865619860) LYMPH % (test code = 11.2 % 736-9) MONO % (test code = 8.7 % 5905-5) EOS % (test code = 1.5 % 713-8) BASO % (test code = 0.3 % 706-2) GRAN MAT x10^3(ANC) 9.01 10*3/uL 1.99-6.95 H (test code = 9221751223) IMM GRAN x10^3 (test 0.08 10*3/uL 0-0.06 H code = 0564356922) LYMPH x10^3 (test code 1.30 10*3/uL 1.09-3.23 = 731-0) MONO x10^3 (test code 1.01 10*3/uL 0.36-1.02 = 742-7) EOS x10^3 (test code = 0.17 10*3/uL 0.06-0.53 711-2) BASO x10^3 (test code 0.03 10*3/uL 0.01-0.09 = 704-7) Lab Interpretation Abnormal (test code = 84410-1) [facility]udaPROCALCITONIN2020-03-01 07:12:00 Test Item Value Reference Range Interpretation Comments Procalcitonin (test 0.14 ng/mL <0.07 H code = 9266192731) JUAN LUIS (test code = JUAN LUIS) [...] lung abscess/empyema. For further information please refer to:[email or web address] Lab Interpretation Abnormal (test code = 26655-8) [facility]udaPOCT GL[facility]AUTOMATED)2019-09-13 02:20:00 Test Item Value Reference Range Interpretation Comments POCT GLU (test code = 0923789093) 227 mg/dL 70-110 H Lab Interpretation (test code = Abnormal 29995-5) [facility] BudaTROPONIN [id number] 00:35:00 Test Item Value Reference Range Interpretation Comments TROPONIN I (test 0.087 ng/mL See_Comment H [Automated code = 9928053417) message] The system which generated this result [...] ? Lab Interpretation Abnormal (test code = 43327-6) [facility]udaMAGNES[facility]UM2020-03-01 00:23:00 Test Item Value Reference Range Interpretation Comments MAGNESIUM (test code = 7378440838) 2.1 mg/dL 1.7-2.4 Lab Interpretation (test code = Normal 39968-2) [facility] GLUCOSE (AUTOMATED)2019-09-12 22:52:00 Test Item Value Reference Range Interpretation Comments POCT GLU (test code = 4041338007) 135 mg/dL 70-110 H Lab Interpretation (test code = Abnormal 13817-6) [facility] GLUCOSE (AUTOMATED)2019-09-12 19:33:00 Test Item Value Reference Range Interpretation Comments POCT GLU (test code = 4049582945) 150 mg/dL 70-110 H Lab Interpretation (test code = Abnormal 60987-5) [facility] BudaaPTT2020-02-29 18:28:00 Test Item Value Reference Range Interpretation Comments APTT Patient (test See_Comment [Automat ed code = 3173-2) message] The system which generated this result transmitted reference range : 23 - 38 Seconds . The reference range was not used to interpr et this result as normal/abnormal . JUAN LUIS (test code = JUAN LUIS) The [facility] patient population mean normal value for aPTT is 30 seconds. Lab Interpretation Normal (test code = 46885-9) [facility]udaXR CHEST 1 [id number] 16:45:37Impression:1. Left basilar atelectasis or pneumonia with small left effusion. Nocomparisons are available at time of dictation.2. Central congestion without edema. Location Code: 2831 Clinical statement: Chest pain Ordering physician: Sang Leal single view. Comparison: None available at time of dictation Findings:Patchy basilar opacities left lung base and small left effusion is seen. Nopneumothorax. Central congestion without edema. Soft tissues and osseousstructures unremarkable. Cardiac silhouette is enlarged. [facility], Radiant Results Inft User - 09/12/2019 10:49 AM CSTClinical statement: Chest pain Ordering physician: Sang Mckeon Chest single view.Comparison: None available at time of dictationFindings:Patchy basilaropacities left lung base and small left effusion is seen. Nopneumothorax. Central congestion withoutedema. Soft tissues and osseousstructures unremarkable. Cardiac silhouette is enlarged.IMPRESSIONImpr ession:1. Left basilar atelectasis or pneumonia with small left effusion. Nocomparisons are available at time of dictation.2. Central congestion without edema.Location Code: 2831 [facility]bergLactic Acid Whole [id number] 16:20:00 Test Item Value Reference Range Interpretation Comments LACTIC ACID (test code = 1.00 mmol/L 0.5-2.2 9144012548) Lab Interpretation (test code = Normal 04369-5) [facility] BudaTROPONIN [id number] 16:11:00 Test Item Value Reference Range Interpretation Comments TROPONIN I (test 0.104 ng/mL See_Comment H [Automated code = 4077790470) message] The system which generated this result [...] ? Lab Interpretation Abnormal (test code = 73694-3) [facility]udaCOMP. METABOLIC PANEL (79355)2019-09-12 16:09:00 Test Item Value Reference Range Interpretation Comments NA (test code = 135 mmol/L 135-145 3226942922) K (test code = 5.1 mmol/L 3.5-5 H 9412704710) CL (test code = 101 mmol/L 98-108 0256326332) CO2 TOTAL (test code = 27 mmol/L 23-31 8933842637) AGAP (test code = 2-16 9709497480) BUN (test code = 39 mg/dL 7-23 H 2626249516) GLUCOSE (test code = 118 mg/dL 70-110 H 9331670368) CREATININE (test code = 1.12 mg/dL 0.6-1.25 8064722175) TOTAL BILI (test code = 0.4 mg/dL 0.1-1.5 0538039974) CALCIUM (test code = 8.6 mg/dL 8.6-10.6 4673897715) T PROTEIN (test code = 6.1 g/dL 6.3-8.2 L 5536307700) ALBUMIN (test code = 3.1 g/dL 3.5-5 L 5623660343) ALK PHOS (test code = 76 U/L 34-122 5300106183) ALTv (test code = 13 U/L 5-50 1742-6) AST(SGOT) (test code = 23 U/L 13-40 1861641518) eGFR Calculation mL/min/1.73m2 (Non-) (test code = 7016116659) eGFR Calculation mL/min/1.73m2 () (test code = 8476182883) JUAN LUIS (test code = JUAN LUIS) [...] tests). Lab Interpretation Abnormal (test code = 84397-1) [facility] 16[facility]09[facility]00 Test Item Value Reference Range Interpretation Comments LIPASE (test code = 3432017440) 29 U/L 0-220 Lab Interpretation (test code = Normal 20909-1) [facility]29 16:09:00 Test Item Value Reference Range Interpretation Comments MAGNESIUM (test code = 0492118358) 2.3 mg/dL 1.7-2.4 Lab Interpretation (test code = Normal 58314-4) [facility] [id number] 16:09:00 Test Item Value Reference Range Interpretation Comments NT-proBNP (test code 47388 pg/mL See_Comment H [Autom ated = 8289447178) message] The system which generated this result transmitted reference range : <=125. The reference range was not used to interpret this result as normal/abnormal . JUAN LUIS (test code = JUAN LUIS) Biotin has been reported to cause a negative bias, interpret results relative to patient's use of biotin. Lab Interpretation Abnormal (test code = 55608-5) [facility]udaPROTHROMBIN TIME / [id number] 15:51:00 Test Item Value Reference Range Interpretation [...] tions. Lab Interpretation (test Normal code = 39573-7) [facility] WITH [id number] 15:42:00 Test Item Value Reference Range Interpretation [...] (test code = 57.1 fL 38.5-51.6 H 64049-7) RDW-CV (test code = 22.9 % 12.1-15.4 H 788-0) PLT (test code = See_Comment H [Automated 777-3) message] The system which generated this result transmit tennille reference range : 150 - 328 10*3/ ?L. The reference range was not u sed to interpret th is result as normal/abnormal . MPV (test code = 11.1 fL 9.8-13 06728-3) NRBC/100 WBC (test See_Comment [Automat ed code = 5119308418) message] The system which generated this result transmit tennille reference range : 0.0 - 10.0 /100 WBCs. The reference range was not used to interpret this result as normal/abnormal . NRBC x10^3 (test code <0.01 See_Comment [Auto mated = 4049095334) message] The system which generated this result transmit tennille reference range : 10*3/?L. The reference range was not used to interpret this result as normal/abnormal . GRAN MAT (NEUT) % 76.8 % (test code = 770-8) IMM GRAN % (test code 0.70 % = 8602374238) LYMPH % (test code = 11.4 % 736-9) MONO % (test code = 8.6 % 5905-5) EOS % (test code = 2.0 % 713-8) BASO % (test code = 0.5 % 706-2) GRAN MAT x10^3(ANC) 11.37 10*3/uL 1.99-6.95 H (test code = 4332662888) IMM GRAN x10^3 (test 0.11 10*3/uL 0-0.06 H code = 2308284507) LYMPH x10^3 (test code 1.68 10*3/uL 1.09-3.23 = 731-0) MONO x10^3 (test code 1.28 10*3/uL 0.36-1.02 H = 742-7) EOS x10^3 (test code = 0.29 10*3/uL 0.06-0.53 711-2) BASO x10^3 (test code 0.07 10*3/uL 0.01-0.09 = 704-7) Lab Interpretation Abnormal (test code = 76574-7) [facility] GLUCOSE (AUTOMATED)2019-09-12 15:27:00 Test Item Value Reference Range Interpretation Comments POCT GLU (test code = 0258155126) 128 mg/dL 70-110 H Lab Interpretation (test code = Abnormal 51048-5) [facility] GLUCOSE (AUTOMATED)2019-09-07 18:25:00 Test Item Value Reference Range Interpretation Comments POCT GLU (test code = 9243390501) 92 mg/dL 70-110 Lab Interpretation (test code = Normal 89114-0) [facility] GLUCOSE (AUTOMATED)2019-09-07 14:39:00 Test Item Value Reference Range Interpretation Comments POCT GLU (test code = 5365847758) 118 mg/dL 70-110 H Lab Interpretation (test code = Abnormal 33637-1) [facility] GLUCOSE (AUTOMATED)2019-09-07 03:00:00 Test Item Value Reference Range Interpretation Comments POCT GLU (test code = 4057296275) 111 mg/dL 70-110 H Lab Interpretation (test code = Abnormal 75374-2) [facility] GLUCOSE (AUTOMATED)2019-09-06 23:30:00 Test Item Value Reference Range Interpretation Comments POCT GLU (test code = 3902767660) 66 mg/dL 70-110 L Lab Interpretation (test code = Abnormal 03005-7) [facility] GLUCOSE (AUTOMATED)2019-09-06 18:24:00 Test Item Value Reference Range Interpretation Comments POCT GLU (test code = 5759220003) 94 mg/dL 70-110 Lab Interpretation (test code = Normal 83597-6) [facility] GLUCOSE (AUTOMATED)2019-09-06 14:00:00 Test Item Value Reference Range Interpretation Comments POCT GLU (test code = 9051801494) 158 mg/dL 70-110 H Lab Interpretation (test code = Abnormal 88909-3) [facility] METABOLIC PANEL (NA, K, CL, CO2, GLUCOSE, BUN, CREATININE, CA)2019-09-06 07:25:00 Test Item Value Reference Range Interpretation Comments NA (test code = 134 mmol/L 135-145 L 0463461016) K (test code = 4.1 mmol/L 3.5-5 4696560198) CL (test code = 101 mmol/L 98-108 0227756855) CO2 TOTAL (test code = 27 mmol/L 23-31 0671259776) AGAP (test code = 2-16 8123579123) BUN (test code = 44 mg/dL 7-23 H 4432529654) GLUCOSE (test code = 138 mg/dL 70-110 H 6330888855) CREATININE (test code = 0.95 mg/dL 0.6-1.25 2100553230) CALCIUM (test code = 7.6 mg/dL 8.6-10.6 L 6690054315) eGFR Calculation mL/min/1.73m2 (Non-) (test code = 1432109997) eGFR Calculation mL/min/1.73m2 () (test code = 1758241518) JUAN LUIS (test code = JUAN LUIS) [...] tests). Lab Interpretation Abnormal (test code = 28224-3) [facility]OS[facility]2020-[facility]-23 07:25:00 Test Item Value Reference Range Interpretation Comments PHOSPHORUS (test code = 3221958311) 2.6 mg/dL 2.5-5 Lab Interpretation (test code = Normal 61758-4) [facility] WITH [id number] 07:10:00 Test Item Value Reference Range Interpretation Comments WBC (test code = See_Comment [Automated 6590-2) message] The sy stem which generated this [...] (test code = 59.2 fL 38.5-51.6 H 10271-1) RDW-CV (test code = 22.7 % 12.1-15.4 H 788-0) PLT (test code = See_Comment [Automated 777-3) message] The sy stem which generated this result transmitted reference range : 150 - 328 10*3/ ?L. The reference r christine was not used to interpret this result as normal/abnormal . MPV (test code = 11.4 fL 9.8-13 23949-1) NRBC/100 WBC (test See_Comment [Automat ed code = 2086479965) message] The system which generated this result transmitted reference range : 0.0 - 10.0 /100 WBCs. The refer ence range was not u sed to interpret th is result as normal/abnormal . NRBC x10^3 (test code <0.01 See_Comment [Auto mated = 4374553271) message] The s ystem which generated this result transmitted reference range : 10*3/?L. The reference range was not used to interpret this result as normal/abnormal . GRAN MAT (NEUT) % 73.2 % (test code = 770-8) IMM GRAN % (test code 0.50 % = 3635885370) LYMPH % (test code = 11.5 % 736-9) MONO % (test code = 11.2 % 5905-5) EOS % (test code = 3.3 % 713-8) BASO % (test code = 0.3 % 706-2) GRAN MAT x10^3(ANC) 7.78 10*3/uL 1.99-6.95 H (test code = 4667873869) IMM GRAN x10^3 (test 0.05 10*3/uL 0-0.06 code = 1524446175) LYMPH x10^3 (test code 1.22 10*3/uL 1.09-3.23 = 731-0) MONO x10^3 (test code 1.19 10*3/uL 0.36-1.02 H = 742-7) EOS x10^3 (test code = 0.35 10*3/uL 0.06-0.53 711-2) BASO x10^3 (test code 0.03 10*3/uL 0.01-0.09 = 704-7) Lab Interpretation Abnormal (test code = 76667-5) [facility]XR CHEST 1 [id number] 01:35:34Impression: Stable findings with obliteration of the [...] are osteopenic. The upper abdomen is unremarkable. [facility], Radiant Results Inft User - 09/05/2019 7:36 [...] of the left hemidiaphragm and the leftcostophrenic angle..[facility] GLUCOSE (AUTOMATED)2019-09-06 01:25:00 Test Item Value Reference Range Interpretation Comments POCT GLU (test code = 0162284561) 98 mg/dL 70-110 Lab Interpretation (test code = Normal 59646-6) [facility] GLUCOSE (AUTOMATED)2019-09-05 23:11:00 Test Item Value Reference Range Interpretation Comments POCT GLU (test code = 7272769512) 76 mg/dL 70-110 Lab Interpretation (test code = Normal 64083-7) [facility] GLUCOSE (AUTOMATED)2019-09-05 18:45:00 Test Item Value Reference Range Interpretation Comments POCT GLU (test code = 1923074977) 99 mg/dL 70-110 Lab Interpretation (test code = Normal 68857-4) [facility] GLUCOSE (AUTOMATED)2019-09-05 13:48:00 Test Item Value Reference Range Interpretation Comments POCT GLU (test code = 3362848265) 229 mg/dL 70-110 H Lab Interpretation (test code = Abnormal 31215-6) [facility]2020-02-22 10:04:00 Test Item Value Reference Range Interpretation Comments PHOSPHORUS (test code = 0736196515) 3.4 mg/dL 2.5-5 Lab Interpretation (test code = Normal 90439-8) [facility] (NA, K, CL, CO2, GLUCOSE, BUN, CREATININE, CA)2019-09-05 10:04:00 Test Item Value Reference Range Interpretation Comments NA (test code = 135 mmol/L 135-145 4065931979) K (test code = 3.7 mmol/L 3.5-5 5163846171) CL (test code = 103 mmol/L 98-108 2506531871) CO2 TOTAL (test code = 26 mmol/L 23-31 9047577314) AGAP (test code = 2-16 8492470787) BUN (test code = 40 mg/dL 7-23 H 0137798826) GLUCOSE (test code = 173 mg/dL 70-110 H 3052281159) CREATININE (test code = 1.17 mg/dL 0.6-1.25 7385820051) CALCIUM (test code = 7.4 mg/dL 8.6-10.6 L 3809779585) eGFR Calculation mL/min/1.73m2 (Non-) (test code = 1255842574) eGFR Calculation mL/min/1.73m2 () (test code = 1442389147) JUAN LUIS (test code = JUAN LUIS) [...] tests). Lab Interpretation Abnormal (test code = 34205-3) [facility] 10:04:00 Test Item Value Reference Range Interpretation Comments MAGNESIUM (test code = 7851454179) 2.2 mg/dL 1.7-2.4 Lab Interpretation (test code = Normal 70703-5) [facility] WITH [id number] 09:53:00 Test Item Value Reference Range Interpretation [...] (test code = 55.0 fL 38.5-51.6 H 97330-5) RDW-CV (test code = 22.1 % 12.1-15.4 H 788-0) PLT (test code = See_Comment L [Automated 777-3) message] The sy stem which generated this result transmitted reference range : 150 - 328 10*3/ ?L. The reference r christine was not used to interpret this result as normal/abnormal . MPV (test code = 10.6 fL 9.8-13 80711-3) NRBC/100 WBC (test See_Comment [Automat ed code = 4373759289) message] The system which generated this result transmitted reference range : 0.0 - 10.0 /100 WBCs. The refer ence range was not u sed to interpret th is result as normal/abnormal . NRBC x10^3 (test code <0.01 See_Comment [Auto mated = 1057765505) message] The s ystem which generated this result transmitted reference range : 10*3/?L. The reference range was not used to interpret this result as normal/abnormal . GRAN MAT (NEUT) % 78.0 % (test code = 770-8) IMM GRAN % (test code 0.70 % = 2357508078) LYMPH % (test code = 8.8 % 736-9) MONO % (test code = 10.6 % 5905-5) EOS % (test code = 1.6 % 713-8) BASO % (test code = 0.3 % 706-2) GRAN MAT x10^3(ANC) 9.06 10*3/uL 1.99-6.95 H (test code = 8666550432) IMM GRAN x10^3 (test 0.08 10*3/uL 0-0.06 H code = 6551233488) LYMPH x10^3 (test code 1.02 10*3/uL 1.09-3.23 L = 731-0) MONO x10^3 (test code 1.23 10*3/uL 0.36-1.02 H = 742-7) EOS x10^3 (test code = 0.18 10*3/uL 0.06-0.53 711-2) BASO x10^3 (test code 0.03 10*3/uL 0.01-0.09 = 704-7) Lab Interpretation Abnormal (test code = 97386-3) [facility] GLUCOSE (AUTOMATED)2019-09-05 05:58:00 Test Item Value Reference Range Interpretation Comments POCT GLU (test code = 8529406737) 160 mg/dL 70-110 H Lab Interpretation (test code = Abnormal 60994-1) [facility] GLUCOSE (AUTOMATED)2019-09-05 03:22:00 Test Item Value Reference Range Interpretation Comments POCT GLU (test code = 3755563520) 56 mg/dL 70-110 L Lab Interpretation (test code = Abnormal 81586-2) [facility] GLUCOSE (AUTOMATED)2019-09-05 03:22:00 Test Item Value Reference Range Interpretation Comments POCT GLU (test code = 5772606779) 103 mg/dL 70-110 Lab Interpretation (test code = Normal 81007-1) [facility] GLUCOSE (AUTOMATED)2019-09-05 02:41:00 Test Item Value Reference Range Interpretation Comments POCT GLU (test code = 1078757754) 98 mg/dL 70-110 Lab Interpretation (test code = Normal 45630-2) [facility] GLUCOSE (AUTOMATED)2019-09-04 18:03:00 Test Item Value Reference Range Interpretation Comments POCT GLU (test code = 6181385098) 173 mg/dL 70-110 H Lab Interpretation (test code = Abnormal 38278-4) [facility] 1 [id number] 14:25:52 No acute intrathoracic abnormality. PROCEDURE: XR [...] acute osseous abnormality. Sternotomy sutures are noted. [facility], Radiant Results Inft User - 09/04/2019 8:27 [...] abnormality. Sternotomy sutures are noted.IMPRESSIONNo acute intrathoracic abnormality.[facility]2019-09-04 14:18:00 Test Item Value Reference Range Interpretation Comments POCT GLU (test code = 1757297830) 198 mg/dL 70-110 H Lab Interpretation (test code = Abnormal 22602-1) [facility] BudaIONIZED [id number] 13:12:00 Test Item Value Reference Range Interpretation Comments IONIZED CA (test code = 4.60 mg/dL 4.5-5.3 4166757212) PH SERUM (test code = 0110240905) 7.35-7.45 H Lab Interpretation (test code = Abnormal 49389-7) [facility]udaCBC WITH [id number] 11:39:00 Test Item Value Reference Range Interpretation [...] (test code = 56.0 fL 38.5-51.6 H 64650-1) RDW-CV (test code = 21.9 % 12.1-15.4 H 788-0) PLT (test code = See_Comment [Automated 777-3) message] The system which generated this result transmit tennille reference range : 150 - 328 10*3/ ?L. The reference range was not u sed to interpret th is result as normal/abnormal . MPV (test code = 11.4 fL 9.8-13 51006-1) NRBC/100 WBC (test See_Comment [Automat ed code = 7084280297) message] The system which generated this result transmit tennille reference range : 0.0 - 10.0 /100 WBCs. The reference range was not used to interpret this result as normal/abnormal . NRBC x10^3 (test code <0.01 See_Comment [Auto mated = 9388881140) message] The system which generated this result transmit tennille reference range : 10*3/?L. The reference range was not used to interpret this result as normal/abnormal . SEG % (test code = 88 % 33-76 H 40722-1) BAND % (test code = 3 % 0-1 H 53673-5) LYMPH % (test code = 6 % 14-54 L 33181-8) MONO % (test code = 3 % 0-4 39887-7) ANC (test code = 12.63 10*3/uL 1.99-6.95 H 6001353825) YVES CELLS (test code 2+ See_Comment A [Auto mated = 7790-9) message] The system which generated this result transmit tennille reference range : (none). The reference range was not used to interpret this result as normal/abnormal . ELLIPTO/OVAL (test 2+ See_Comment A [Automat ed code = 44853-5) message] The system which generated this result transmit tennille reference range : (none). The reference range was not used to interpret this result as normal/abnormal . SCHISTOCYTES (test 1+ A code = 800-3) TOXIC CHANGES (test Present A code = 803-7) PLT ESTIMATE (test Normal Normal code = 9317-9) Lab Interpretation Abnormal (test code = 07931-9) [facility] METABOLIC PANEL (NA, K, CL, CO2, GLUCOSE, BUN, CREATININE, CA)2019-09-04 11:26:00 Test Item Value Reference Range Interpretation Comments NA (test code = 136 mmol/L 135-145 3076627102) K (test code = 3.4 mmol/L 3.5-5 L 7036644379) CL (test code = 103 mmol/L 98-108 5132728550) CO2 TOTAL (test code = 26 mmol/L 23-31 5695988958) AGAP (test code = 2-16 5359716055) BUN (test code = 42 mg/dL 7-23 H 5121719796) GLUCOSE (test code = 184 mg/dL 70-110 H 8804518432) CREATININE (test code = 1.14 mg/dL 0.6-1.25 8826268732) CALCIUM (test code = 8.0 mg/dL 8.6-10.6 L 4766781043) eGFR Calculation mL/min/1.73m2 (Non-) (test code = 3964303413) eGFR Calculation mL/min/1.73m2 () (test code = 3432873023) JUAN LUIS (test code = JUAN LUIS) [...] tests). Lab Interpretation Abnormal (test code = 69685-6) [facility]2020-[facility]-21 11:26:00 Test Item Value Reference Range Interpretation Comments MAGNESIUM (test code = 4247473010) 2.0 mg/dL 1.7-2.4 Lab Interpretation (test code = Normal 30566-2) [facility] GLUCOSE (AUTOMATED)2019-09-04 11:05:00 Test Item Value Reference Range Interpretation Comments POCT GLU (test code = 5390917296) 202 mg/dL 70-110 H Lab Interpretation (test code = Abnormal 03569-0) [facility] GLUCOSE (AUTOMATED)2019-09-04 09:12:00 Test Item Value Reference Range Interpretation Comments POCT GLU (test code = 6502477654) 190 mg/dL 70-110 H Lab Interpretation (test code = Abnormal 65501-0) [facility] GLUCOSE (AUTOMATED)2019-09-04 05:59:00 Test Item Value Reference Range Interpretation Comments POCT GLU (test code = 6240351297) 144 mg/dL 70-110 H Lab Interpretation (test code = Abnormal 11810-3) [facility] GLUCOSE (AUTOMATED)2019-09-04 03:37:00 Test Item Value Reference Range Interpretation Comments POCT GLU (test code = 5834811482) 138 mg/dL 70-110 H Lab Interpretation (test code = Abnormal 25647-6) [facility] GLUCOSE (AUTOMATED)2019-09-04 02:36:00 Test Item Value Reference Range Interpretation Comments POCT GLU (test code = 54 mg/dL 70-110 L Notifi ed Provider [id number]) Lab Interpretation (test Abnormal code = 49783-3) [facility] GLUCOSE (AUTOMATED)2019-09-04 02:35:00 Test Item Value Reference Range Interpretation Comments POCT GLU (test code = 2792041742) 137 mg/dL 70-110 H Lab Interpretation (test code = Abnormal 86360-0) [facility] GLUCOSE (AUTOMATED)2019-09-03 23:29:00 Test Item Value Reference Range Interpretation Comments POCT GLU (test code = 8615328192) 68 mg/dL 70-110 L Lab Interpretation (test code = Abnormal 14312-7) [facility] GLUCOSE (AUTOMATED)2019-09-03 23:06:00 Test Item Value Reference Range Interpretation Comments POCT GLU (test code = 4564794604) 69 mg/dL 70-110 L Lab Interpretation (test code = Abnormal 01132-0) [facility] 1 [id number] 22:57:22 Mild residual atelectasis. No definite pneumothorax. [...] venous catheter sheath terminates in the mid SVC.[facility] GLUCOSE (AUTOMATED)2019-09-03 17:30:00 Test Item Value Reference Range Interpretation Comments POCT GLU (test code = 0599794432) 108 mg/dL 70-110 Lab Interpretation (test code = Normal 60460-3) [facility] 1 [id number] 15:06:00EXAM: XR CHEST 1 VW HISTORY: s/p cabg COMPARISON: None. FINDINGS: Chest tubes drain the pleural space on each side, and a mediastinal drainis in the expected position. The [place] catheter was removed. The tip ofthe right IJ line is in the superior vena cava ?The heart is upper limit ofnormal in size or slightly enlarged to the left, probably the latter. Thelungs are moderately well expanded and clear except for very minor hilarvascular congestion. No pleural effusion or pneumothorax is detected.[facility], Radiant Results Inft User - 09/03/2019 9:07 AM CSTEXAM: XR CHEST 1 VWHISTORY: s/p cabg COMPARISON: None.FINDINGS:Chest tubes drain the pleural space on each side, and a mediastinal drainis in theexpected position. The [place]-Ju[place] catheter was removed. The tip ofthe right IJ line is in the superior vena cava The heart is upper limit ofnormal in size or slightly enlarged to the left, probably thelatter. Thelungs are moderately well expanded and clear except for very minor hilarvascular congestion. No pleural effusion or pneumothorax is detected.[facility] GLUCOSE (AUTOMATED)2019-09-03 14:42:00 Test Item Value Reference Range Interpretation Comments POCT GLU (test code = 136 mg/dL 70-110 H Notifi ed Provider [id number]) Lab Interpretation (test Abnormal code = 56651-7) [facility] WITH [id number] 10:31:00 Test Item Value Reference Range Interpretation [...] (test code = 53.7 fL 38.5-51.6 H 33503-9) RDW-CV (test code = 21.4 % 12.1-15.4 H 788-0) PLT (test code = See_Comment [Automated 777-3) message] The system which generated this result transmit tennille reference range : 150 - 328 10*3/ ?L. The reference range was not u sed to interpret th is result as normal/abnormal . MPV (test code = 11.5 fL 9.8-13 07113-6) NRBC/100 WBC (test See_Comment [Automat ed code = 4592070923) message] The system which generated this result transmit tennille reference range : 0.0 - 10.0 /100 WBCs. The reference range was not used to interpret this result as normal/abnormal . NRBC x10^3 (test code <0.01 See_Comment [Auto mated = 9010676373) message] The system which generated this result transmit tennille reference range : 10*3/?L. The reference range was not used to interpret this result as normal/abnormal . GRAN MAT (NEUT) % 84.6 % (test code = 770-8) IMM GRAN % (test code 0.60 % = 5875395475) LYMPH % (test code = 4.2 % 736-9) MONO % (test code = 10.5 % 5905-5) EOS % (test code = 0.0 % 713-8) BASO % (test code = 0.1 % 706-2) GRAN MAT x10^3(ANC) 14.72 10*3/uL 1.99-6.95 H (test code = 4178777498) IMM GRAN x10^3 (test 0.11 10*3/uL 0-0.06 H code = 8701946622) LYMPH x10^3 (test code 0.74 10*3/uL 1.09-3.23 L = 731-0) MONO x10^3 (test code 1.83 10*3/uL 0.36-1.02 H = 742-7) EOS x10^3 (test code = <0.03 0.06-0.53 L 711-2) BASO x10^3 (test code <0.03 0.01-0.09 = 704-7) BASO STIPPLING (test Present A code = 703-9) SCHISTOCYTES (test 1+ A code = 800-3) Lab Interpretation Abnormal (test code = 22693-4) [facility] (NA, K, CL, CO2, GLUCOSE, BUN, CREATININE, CA)2019-09-03 10:19:00 Test Item Value Reference Range Interpretation Comments NA (test code = 137 mmol/L 135-145 6828884814) K (test code = 4.0 mmol/L 3.5-5 3629551813) CL (test code = 104 mmol/L 98-108 5451029459) CO2 TOTAL (test code = 24 mmol/L 23-31 3973919630) AGAP (test code = 2-16 1047649639) BUN (test code = 51 mg/dL 7-23 H 7426234745) GLUCOSE (test code = 204 mg/dL 70-110 H 0375003333) CREATININE (test code = 1.72 mg/dL 0.6-1.25 H 1437159533) CALCIUM (test code = 8.6 mg/dL 8.6-10.6 3015467585) eGFR Calculation mL/min/1.73m2 (Non-) (test code = 8936469601) eGFR Calculation mL/min/1.73m2 () (test code = 6226229225) JUAN LUIS (test code = JUAN LUIS) [...] tests). Lab Interpretation Abnormal (test code = 18549-0) [facility] Test Item Value Reference Range Interpretation Comments MAGNESIUM (test code = 0523932184) 2.5 mg/dL 1.7-2.4 H Lab Interpretation (test code = Abnormal 87457-4) [facility] GLUCOSE (AUTOMATED)2019-09-03 09:37:00 Test Item Value Reference Range Interpretation Comments POCT GLU (test code = 283 mg/dL 70-110 H Notifi ed Provider [id number]) Lab Interpretation (test Abnormal code = 59296-1) [facility] GLUCOSE (AUTOMATED)2019-09-03 09:12:00 Test Item Value Reference Range Interpretation Comments POCT GLU (test code = 2839966781) 240 mg/dL 70-110 H Lab Interpretation (test code = Abnormal 27186-4) [facility] GLUCOSE (AUTOMATED)2019-09-03 06:11:00 Test Item Value Reference Range Interpretation Comments POCT GLU (test code = 7536763908) 309 mg/dL 70-110 H Lab Interpretation (test code = Abnormal 91536-0) [facility] GLUCOSE (AUTOMATED)2019-09-02 22:21:00 Test Item Value Reference Range Interpretation Comments POCT GLU (test code = 9438283250) 281 mg/dL 70-110 H Lab Interpretation (test code = Abnormal 17216-9) [facility] GLUCOSE (AUTOMATED)2019-09-02 18:57:00 Test Item Value Reference Range Interpretation Comments POCT GLU (test code = 4814756432) 244 mg/dL 70-110 H Lab Interpretation (test code = Abnormal 49906-9) [facility] MSSA Screen by Britney [id number] 17:19:00 Test Item Value Reference Range Interpretation Comments MSSA Screen by Britney MTZ (test code Negative Negative = 64415-3) MRSA/MSSA Positive? (test code = No No [id number]) Lab Interpretation (test code = Normal 58693-8) [facility] 1 [id number] 15:38:43EXAM: XR CHEST 1 VW HISTORY: s/p open heart surgery COMPARISON: None. FINDINGS: The heart is slightly enlarged, not different than noted previously. Thetip of the Odessa-Juhi catheter is in the main pulmonary artery. A chest tubedrains the pleural space on the right and a mediastinal drain is in place.The endotracheal tube was removed. The chest tube on the left was removed.The lungs are moderately well expanded and clear.[facility], Radiant Results Inft User - 09/02/2019 9:39 AM CSTEXAM: XR CHEST 1 VWHISTORY: s/p open heart surgery COMPARISON: None.FINDINGS:The heart is slightly enlarged, not different than noted previously. Thetip of the Od[place]-Juhi catheter is in the main pulmonary artery. A chest tubedrains the pleural space on the right and a mediastinal drain is in place.The endotracheal tube was removed. The chest tube on the left was removed.The lungs are moderately well expanded and clear.[facility] GLUCOSE (AUTOMATED)2019-09-02 13:46:00 Test Item Value Reference Range Interpretation Comments POCT GLU (test code = 0270898444) 157 mg/dL 70-110 H Lab Interpretation (test code = Abnormal 12255-8) [facility] GLUCOSE (AUTOMATED)2019-09-02 10:17:00 Test Item Value Reference Range Interpretation Comments POCT GLU (test code = 4888983630) 149 mg/dL 70-110 H Lab Interpretation (test code = Abnormal 02670-9) [facility] GLUCOSE (AUTOMATED)2019-09-02 10:17:00 Test Item Value Reference Range Interpretation Comments POCT GLU (test code = 3041808606) 109 mg/dL 70-110 Lab Interpretation (test code = Normal 82580-4) [facility]2020-02-19 07:38:00 Test Item Value Reference Range Interpretation Comments MAGNESIUM (test code = 6695810490) 2.6 mg/dL 1.7-2.4 H Lab Interpretation (test code = Abnormal 92697-6) [facility] METABOLIC PANEL (NA, K, CL, CO2, GLUCOSE, BUN, CREATININE, CA)2019-09-02 07:38:00 Test Item Value Reference Range Interpretation Comments NA (test code = 137 mmol/L 135-145 5460506745) K (test code = 4.6 mmol/L 3.5-5 2799910072) CL (test code = 108 mmol/L 98-108 9253063811) CO2 TOTAL (test code = 23 mmol/L 23-31 4171196739) AGAP (test code = 2-16 7243624375) BUN (test code = 40 mg/dL 7-23 H 6079056212) GLUCOSE (test code = 120 mg/dL 70-110 H 0156014824) CREATININE (test code = 1.72 mg/dL 0.6-1.25 H 3218306771) CALCIUM (test code = 8.1 mg/dL 8.6-10.6 L 4240508154) eGFR Calculation mL/min/1.73m2 (Non-) (test code = 9068009470) eGFR Calculation mL/min/1.73m2 () (test code = 2725377719) JUAN LUIS (test code = JUAN LUIS) [...] tests). Lab Interpretation Abnormal (test code = 20569-8) [facility]udaPHOSPHOR[facility]2020-02-19 07:38:00 Test Item Value Reference Range Interpretation Comments PHOSPHORUS (test code = 0093919450) 4.5 mg/dL 2.5-5 Lab Interpretation (test code = Normal 76896-5) [facility]udaHEPATIC FUNCTION PANEL (21268) (ALB,T.PRO,BILI T,BU/BC,ALT,AST,ALK PHOS)2019-09-02 07:38:00 Test Item Value Reference Range Interpretation Comments TOTAL BILI (test code = 2279147077) 0.2 mg/dL 0.1-1.1 BILI UNCON (test code = 2122692791) 0.2 mg/dL 0.1-1.1 BILI CONJ (test code = 2553263228) 0.0 mg/dL 0-0.3 T PROTEIN (test code = 8962565930) 4.7 g/dL 6.3-8.2 L ALBUMIN (test code = 1317863249) 2.4 g/dL 3.5-5 L ALK PHOS (test code = 5139994890) 34 U/L 34-122 ALTv (test code = 1742-6) 15 U/L 5-50 AST(SGOT) (test code = 2173729519) 43 U/L 13-40 H Lab Interpretation (test code = Abnormal 68360-1) [facility]udaABG+COOX+NA+K+GLU+CA2+2019-09-02 07:30:00 Test Item Value Reference Range Interpretation Comments PH (test code = 2) 7.35-7.45 PCO2 (test code = See_Comment [Automat ed message] 9377934937) The system [employer] generated this result transmit tennille reference range : 35 - 45 mmHg. The reference range was not used to interpret this result as normal/abnormal . PO2 (test code = See_Comment H [Automated message] 0934818950) The system [employer] generated this result transmit tennille reference range : 80 - 100 mmHg. The reference range was not used to interpret this result as normal/abnormal . HCO3 (test code = See_Comment L [Automate d message] 6032623622) The system [employer] generated this result transmit tennille reference range : 22 - 26 mEq/L. The reference range was not used to interpret this result as normal/abnormal . BE (test code = See_Comment L [Automated message] 4283252020) The system [employer] generated this result transmit tennille reference range : -3.0 - 3.0 mEq/ L. The reference r christine was not used to interpret this result as normal/abnormal . THB (test code = 9.6 g/dL 13.5-18 L 4800685943) %O2HB (test code = 97.8 % 94-99 3027542791) %COHB ART (test code = 0.3 % 0-1.5 2506048738) %METHB ART (test code = 0.3 % 0.4-1.5 L 1170136545) VOL%O2 ART (test code = 13.5 % 15-23 L 8113318876) NA (test code = 135 mmol/L 135-145 9690651584) K+ (test code = 4.4 mmol/L 3.5-5 6331818424) AC CA IONZ (test code = 5.00 mg/dL 4.5-5.3 2211355761) GLUCOSE (test code = 117 mg/dL 70-110 H 4222474118) Lab Interpretation Abnormal (test code = 60003-2) [facility]udaPROFILE / [id number] 07:28:00 Test Item Value Reference Range Interpretation Comments WBC (test code = 6690-2) See_Comment H [A utomated message] The system [employer] generated this result transmit tennille reference range : 4.20 - 10.70 10*3/?L. The reference range was not used to interpret this result as normal/abnormal . RBC (test code = 789-8) See_Comment L [Au tomated message] The system [employer] generated this result transmit tennille reference range [...] 777-3) See_Comment [Au tomated message] The system [employer] generated this result transmit tennille reference range : 150 - 328 10*3/?L. The reference range was not used to interpret this result as normal/abnormal . MPV (test code = 11.1 fL 9.8-13 75645-1) RDW-CV (test code = 19.5 % 12.1-15.4 H 788-0) RDW-SD (test code = 50.0 fL 38.5-51.6 57618-3) NRBC x10^3 (test code = <0.01 See_Comment [Au tomated message] 9136720381) The system [facility] generated this result transmit tennille reference range : 10*3/?L. The reference range was not used to interpret this result as normal/abnormal . NRBC/100 WBC (test code See_Comment [Au tomated message] = 4127536134) The system [facility] generated this result transmit tennille reference range : 0.0 - 10.0 /100 WBC s. The reference r christine was not used to interpret this result as normal/abnormal . IPF % (test code = 5998650246) Lab Interpretation (test Abnormal code = 99244-5) [facility]uda[facility]OM[facility])2019-09-02 06:07:00 Test Item Value Reference Range Interpretation Comments POCT GLU (test code = 1192447819) 183 mg/dL 70-110 H Lab Interpretation (test code = Abnormal 11587-8) [facility]udaAC PAN[facility] + LACTIC [id number] 03:06:00 Test Item Value Reference Range Interpretation Comments PH (test code = 2) 7.35-7.45 PCO2 (test code = See_Comment L [Automat ed 4603395251) message] The sy stem which generated this result transmitted reference range : 35 - 45 mmHg. The reference range was not used to interpret this result as normal/abnormal . PO2 (test code = See_Comment H [Automated 5721840116) message] The sy stem which generated this result transmitted reference range : 80 - 100 mmHg. The reference range was not used to interpret this result as normal/abnormal . HCO3 (test code = See_Comment L [Automate d 8018519142) message] The sy stem which generated this result transmitted reference range : 22 - 26 mEq/L. The reference range was not used to interpret this result as normal/abnormal . BE (test code = See_Comment L [Automated 9320944011) message] The sy stem which generated this result transmitted reference range : -3.0 - 3.0 mEq/ L. The reference r christine was not used to interpret this result as normal/abnormal . THB (test code = 10.2 g/dL 13.5-18 L 5913691247) %O2HB (test code = 98.1 % 94-99 8536900749) %COHB ART (test code = 0.3 % 0-1.5 2916567448) %METHB ART (test code = 0.3 % 0.4-1.5 L 6295651503) VOL%O2 ART (test code = 14.4 % 15-23 L 7544191926) NA (test code = 134 mmol/L 135-145 L 7222201897) K+ (test code = 4.9 mmol/L 3.5-5 0402825580) AC CA IONZ (test code = 4.90 mg/dL 4.5-5.3 2447554909) GLUCOSE (test code = 176 mg/dL 70-110 H 8123516650) LACTIC ACID (test code 1.62 mmol/L 0.5-2.2 = 1030349950) Lab Interpretation Abnormal (test code = 31153-9) [facility] GLUCOSE (AUTOMATED)2019-09-02 01:41:00 Test Item Value Reference Range Interpretation Comments POCT GLU (test code = 6297696447) 176 mg/dL 70-110 H Lab Interpretation (test code = Abnormal 73759-0) [facility] GLUCOSE (AUTOMATED)2019-09-01 23:56:00 Test Item Value Reference Range Interpretation Comments POCT GLU (test code = 0099667899) 172 mg/dL 70-110 H Lab Interpretation (test code = Abnormal 19861-2) [facility] METABOLIC PANEL (NA, K, CL, CO2, GLUCOSE, BUN, CREATININE, CA)2019-09-01 23:52:00 Test Item Value Reference Range Interpretation Comments NA (test code = 136 mmol/L 135-145 0052994292) K (test code = 5.1 mmol/L 3.5-5 H 1433936895) CL (test code = 106 mmol/L 98-108 0682377541) CO2 TOTAL (test code = 23 mmol/L 23-31 2614565461) AGAP (test code = 2-16 0367231393) BUN (test code = 34 mg/dL 7-23 H 7950507446) GLUCOSE (test code = 147 mg/dL 70-110 H 3136589000) CREATININE (test code = 1.75 mg/dL 0.6-1.25 H 2719965156) CALCIUM (test code = 8.4 mg/dL 8.6-10.6 L 7182695622) eGFR Calculation mL/min/1.73m2 (Non-) (test code = 9838800957) eGFR Calculation mL/min/1.73m2 () (test code = 5144950909) JUAN LUIS (test code = JUAN LUIS) [...] tests). Lab Interpretation Abnormal (test code = 14131-9) [facility]2020-02-18 23:49:00 Test Item Value Reference Range Interpretation Comments MAGNESIUM (test code = 8129939024) 2.3 mg/dL 1.7-2.4 Lab Interpretation (test code = Normal 97703-6) [facility]udaPHOSPHORUS2020-02-18 23:49:00 Test Item Value Reference Range Interpretation Comments PHOSPHORUS (test code = 9676408063) 4.0 mg/dL 2.5-5 Lab Interpretation (test code = Normal 82302-7) [facility]uda[facility]AUTOMATED)2019-09-01 23:48:00 Test Item Value Reference Range Interpretation Comments POCT GLU (test code = 1156630767) 131 mg/dL 70-110 H Lab Interpretation (test code = Abnormal 14927-7) [facility] BudaaPTT2020-02-18 23:48:00 Test Item Value Reference Range Interpretation Comments APTT Patient (test code = See_Comment [ Automated message] 3173-2) The system [employer] generated this result transmitted ref erence range: 26 - 36 Seconds. The re ference range was not u sed to interpret this result as normal/abnor mal. Lab Interpretation (test Normal code = 40443-7) [facility]udaABG+COOX+NA+K+GLU+CA2+2019-09-01 23:34:00 Test Item Value Reference Range Interpretation Comments PH (test code = 2) 7.35-7.45 PCO2 (test code = See_Comment [Automat ed message] 4019882459) The system [employer] generated this result transmit tennille reference range : 35 - 45 mmHg. The reference range was not used to interpret this result as normal/abnormal . PO2 (test code = See_Comment H [Automated message] 8788634893) The system [employer] generated this result transmit tennille reference range : 80 - 100 mmHg. The reference range was not used to interpret this result as normal/abnormal . HCO3 (test code = See_Comment L [Automate d message] 1197121789) The system [employer] generated this result transmit tennille reference range : 22 - 26 mEq/L. The reference range was not used to interpret this result as normal/abnormal . BE (test code = See_Comment L [Automated message] 2965864787) The system [employer] generated this result transmit tennille reference range : -3.0 - 3.0 mEq/ L. The reference r christine was not used to interpret this result as normal/abnormal . THB (test code = 10.0 g/dL 13.5-18 L 7360571587) %O2HB (test code = 98.0 % 94-99 1801164971) %COHB ART (test code = 0.3 % 0-1.5 7706651998) %METHB ART (test code = 0.2 % 0.4-1.5 L 0216835478) VOL%O2 ART (test code = 14.1 % 15-23 L 6947723756) NA (test code = 134 mmol/L 135-145 L 0005691916) K+ (test code = 5.0 mmol/L 3.5-5 9196122758) AC CA IONZ (test code = 4.90 mg/dL 4.5-5.3 6855778964) GLUCOSE (test code = 151 mg/dL 70-110 H 6035216096) Lab Interpretation Abnormal (test code = 36049-4) [facility] WITH [id number] 21:06:00 Test Item Value Reference Range Interpretation [...] (test code = 51.8 fL 38.5-51.6 H 56418-8) RDW-CV (test code = 20.2 % 12.1-15.4 H 788-0) PLT (test code = See_Comment [Automated 777-3) message] The system which generated this result transmit tennille reference range : 150 - 328 10*3/ ?L. The reference range was not u sed to interpret th is result as normal/abnormal . MPV (test code = 11.7 fL 9.8-13 15163-7) NRBC/100 WBC (test See_Comment [Automat ed code = 7978751689) message] The system which generated this result transmit tennille reference range : 0.0 - 10.0 /100 WBCs. The reference range was not used to interpret this result as normal/abnormal . NRBC x10^3 (test code <0.01 See_Comment [Auto mated = 4709194334) message] The system which generated this result transmit tennille reference range : 10*3/?L. The reference range was not used to interpret this result as normal/abnormal . GRAN MAT (NEUT) % 87.5 % (test code = 770-8) IMM GRAN % (test code 0.80 % = 1523929832) LYMPH % (test code = 4.4 % 736-9) MONO % (test code = 6.6 % 5905-5) EOS % (test code = 0.4 % 713-8) BASO % (test code = 0.3 % 706-2) GRAN MAT x10^3(ANC) 12.12 10*3/uL 1.99-6.95 H (test code = 4471414868) IMM GRAN x10^3 (test 0.11 10*3/uL 0-0.06 H code = 9589710356) LYMPH x10^3 (test code 0.61 10*3/uL 1.09-3.23 L = 731-0) MONO x10^3 (test code 0.92 10*3/uL 0.36-1.02 = 742-7) EOS x10^3 (test code = 0.05 10*3/uL 0.06-0.53 L 711-2) BASO x10^3 (test code 0.04 10*3/uL 0.01-0.09 = 704-7) Lab Interpretation Abnormal (test code = 37747-1) [facility] + LACTIC [id number] 21:06:00 Test Item Value Reference Range Interpretation Comments PH (test code = 2) 7.35-7.45 PCO2 (test code = See_Comment [Automat ed 3345852614) message] The sy stem which generated this result transmitted reference range : 35 - 45 mmHg. The reference range was not used to interpret this result as normal/abnormal . PO2 (test code = See_Comment H [Automated 7447786540) message] The sy stem which generated this result transmitted reference range : 80 - 100 mmHg. The reference range was not used to interpret this result as normal/abnormal . HCO3 (test code = See_Comment [Automate d 5314935792) message] The sy stem which generated this result transmitted reference range : 22 - 26 mEq/L. The reference range was not used to interpret this result as normal/abnormal . BE (test code = See_Comment [Automated 7149860853) message] The sy stem which generated this result transmitted reference range : -3.0 - 3.0 mEq/ L. The reference r christine was not used to interpret this result as normal/abnormal . THB (test code = 9.9 g/dL 13.5-18 L 8594433309) %O2HB (test code = 98.0 % 94-99 9752754719) %COHB ART (test code = 0.3 % 0-1.5 7264875885) %METHB ART (test code = 0.1 % 0.4-1.5 L 0556783305) VOL%O2 ART (test code = 14.0 % 15-23 L 2796421083) NA (test code = 135 mmol/L 135-145 0637237435) K+ (test code = 4.5 mmol/L 3.5-5 4006000722) AC CA IONZ (test code = 4.60 mg/dL 4.5-5.3 2694875674) GLUCOSE (test code = 124 mg/dL 70-110 H 4657432283) LACTIC ACID (test code 0.89 mmol/L 0.5-2.2 = 3071688355) Lab Interpretation Abnormal (test code = 25787-3) [facility] Metabolic Panel (NA, K, CL, CO2, GLUCOSE, BUN, CREATININE, CA)2019-09-01 21:02:00 Test Item Value Reference Range Interpretation Comments NA (test code = 137 mmol/L 135-145 0578675057) K (test code = 4.3 mmol/L 3.5-5 2214873840) CL (test code = 107 mmol/L 98-108 0700109007) CO2 TOTAL (test code = 24 mmol/L 23-31 5511837023) AGAP (test code = 2-16 4329312819) BUN (test code = 31 mg/dL 7-23 H 9336488813) GLUCOSE (test code = 106 mg/dL 70-110 0539883800) CREATININE (test code = 1.68 mg/dL 0.6-1.25 H 5919820223) CALCIUM (test code = 7.0 mg/dL 8.6-10.6 L 2887983214) eGFR Calculation mL/min/1.73m2 (Non-) (test code = 8563236326) eGFR Calculation mL/min/1.73m2 () (test code = 8793000378) JUAN LUIS (test code = JUAN LUIS) [...] tests). Lab Interpretation Abnormal (test code = 20661-3) [facility]2020-02-18 21:02:00 Test Item Value Reference Range Interpretation Comments MAGNESIUM (test code = 0790282654) 1.9 mg/dL 1.7-2.4 Lab Interpretation (test code = Normal 16337-9) [facility]udaPHOSPHOR[facility]2020-02-18 21:02:00 Test Item Value Reference Range Interpretation Comments PHOSPHORUS (test code = 7526040638) 3.1 mg/dL 2.5-5 Lab Interpretation (test code = Normal 80288-3) [facility] BudaPROTHROMBIN TIME / [id number] 20:59:00 Test Item Value Reference Range Interpretation Comments PROTIME PATIENT (test See_Comment H [Auto mated message] code = 5964-2) The system [employer] generated this result transmitted ref erence range: 10.1 - 1 2.6 Seconds. The reference range was not used to int erpret this result as normal/abnormal . INR (test code = 6301-6) Nor mal INR <1.1; Warfarin Therap eutic range 2.0 to 3. 0 or 2.5 to 3.5, dep ending upon the indica tions. Lab Interpretation (test Abnormal code = 13019-1) [facility] BudaaPTT2020-02-18 20:59:00 Test Item Value Reference Range Interpretation Comments APTT Patient (test code See_Comment H [Au tomated message] = 3173-2) The system [employer] generated this result transmitted ref erence range: 26 - 36 Seconds. The reference range was not used to int erpret this result as normal/abnormal . Lab Interpretation (test Abnormal code = 44122-5) [facility] BudaPrepare Packed RBC (in units), 2 Units 2019-09-01 20:58:25 Test Item Value Reference Range Interpretation Comments Cross Match Result Compatible (test code = 4409) ISBT Blood Type Code (test code = 544021) Unit Blood Type (test A Pos code = 4410) Unit Number (test [id number] code = 4411) Blood Expiration Date & Time (test code = 650085) Status Information Issued (test code = 4412) Product Red Blood Cells Identification (test code = 4413) Product Code (test Q5738T78 Performed at [facility] code = 4414) Laboratory Services - [facility] Blood [address] [place] [id number] Free: [phone] A No. [id number] [facility]uda[facility] 1 View (on admission)2019-09-01 19:53:23 Lines and tubes in expected position Lungs are expanded and clear with mild perihilar congestion. XR CHEST 1 VW HISTORY: s/p open heart surgery COMPARISON: 08/22/2019 FINDINGS: Lines and tubes: The endotracheal tube terminates 4.6 cm from amol.NG tube extends to stomach.Right IJ Odessa-Juhi terminates at proximal right PA.Mediastinal and chest tubes in place. Lungs and pleura: Unremarkable with mildperihilar congestion. No pleuraleffusion or pneumothorax. Mediastinum and heart: Unremarkable Bones;?unremarkable status post medial sternotomy. [facility], Radiant Results Inft User - 09/01/2019 1:54 PM CSTXR CHEST 1 VWHISTORY: s/p open heart surgery COMPARISON: 08/22/2019FINDINGS:Lines and tubes: The endotracheal tube terminates 4.6 cm from amol.NG tube extends to stomach.Right IJ Odessa-Juhi terminates at proximal right PA.Mediastinal and chest tubes in place.Lungs and pleura: Unremarkable with mild perihilar congestion. No pleuraleffusion or pneumothorax.Mediastinum and heart: UnremarkableBones; unre markable status post medial sternotomy.IMPRESSIONLines and tubes in expected positionLungs are expanded and clear with mild perihilar congestion.[facility]udaABG+COOX+NA+K+GLU+CA2+2019-09-01 19:30:00 Test Item Value Reference Range Interpretation Comments PH (test code = 2) 7.35-7.45 PCO2 (test code = See_Comment [Automat ed message] 3243232614) The system [employer] generated this result transmit tennille reference range : 35 - 45 mmHg. The reference range was not used to interpret this result as normal/abnormal . PO2 (test code = See_Comment H [Automated message] 3886401844) The system [employer] generated this result transmit tennille reference range : 80 - 100 mmHg. The reference range was not used to interpret this result as normal/abnormal . HCO3 (test code = See_Comment [Automate d message] 7715233945) The system [employer] generated this result transmit tennille reference range : 22 - 26 mEq/L. The reference range was not used to interpret this result as normal/abnormal . BE (test code = See_Comment [Automated message] 7108969776) The system [employer] generated this result transmit tnenille reference range : -3.0 - 3.0 mEq/ L. The reference r christine was not used to interpret this result as normal/abnormal . THB (test code = 9.9 g/dL 13.5-18 L 0852188051) %O2HB (test code = 98.8 % 94-99 0043125293) %COHB ART (test code = 0.0 % 0-1.5 4127605854) %METHB ART (test code = 0.3 % 0.4-1.5 L 6652081391) VOL%O2 ART (test code = 14.4 % 15-23 L 8117132544) NA (test code = 135 mmol/L 135-145 6802815079) K+ (test code = 4.3 mmol/L 3.5-5 4323635957) AC CA IONZ (test code = 4.40 mg/dL 4.5-5.3 L 5785974682) GLUCOSE (test code = 106 mg/dL 70-110 1982294239) Lab Interpretation Abnormal (test code = 90850-7) [facility] ACUTE CARE [id number] 18:13:00 Test Item Value Reference Range Interpretation Comments PH (test code = 2) 7.35-7.45 PCO2 (test code = See_Comment H [Automat ed message] 7535012523) The system [employer] generated this result transmit tennille reference range : 35 - 45 mmHg. The reference range was not used to interpret this result as normal/abnormal . PO2 (test code = See_Comment H [Automated message] 4649363662) The system [employer] generated this result transmit tennille reference range : 80 - 100 mmHg. The reference range was not used to interpret this result as normal/abnormal . BE (test code = See_Comment [Automated message] 7524024356) The system [employer] generated this result transmit tennille reference range : -3.0 - 3.0 mEq/ L. The reference r christine was not used to interpret this result as normal/abnormal . HCO3 (test code = See_Comment H [Automate d message] 7261017129) The system [employer] generated this result transmit tennille reference range : 22 - 26 mEq/L. The reference range was not used to interpret this result as normal/abnormal . %O2HB (test code = 100.0 % 95-98 H 1334205148) NA (test code = 137 mmol/L 135-145 [id number]) K+ (test code = 4.3 mmol/L 3.5-5 9340307297) AC CA IONZ (test code = 4.40 mg/dL 4.5-5.3 L 9884579348) GLUCOSE (test code = 80 mg/dL 70-110 6151481729) AC Hematocrit (test See_Comment LL [Automa tennille message] code = 1679043077) The syste m which generated this result transmit tennille reference range : 40 - 54 VOL %. The reference range was not used to interpret this result as normal/abnormal . THB (test code = 8.2 g/dL 13.5-18 LL 7262522480) AC TC02 (test code = 28 mmol/L See_Comment H [Autom ated message] 6112321935) The system [employer] generated this result transmit tennille reference range : 23-27 mmol/L. T he reference range was not used to interpret this result as normal/abnormal . Lab Interpretation Abnormal (test code = 46523-3) [facility] [id number] 17:58:00 Test Item Value Reference Range Interpretation Comments ACTHR (test code = See_Comment [Automat ed message] 9761444923) The system [employer] generated this result transmitted ref erence range: 96 - 152 Seconds. The re ference range was not u sed to interpret this result as normal/abnor mal. Lab Interpretation (test Normal code = 53009-9) [facility] BudaaPTT2020-02-18 17:39:00 Test Item Value Reference Range Interpretation Comments APTT Patient (test code >150 See_Comment HH [Au tomated message] = 3173-2) The system [employer] generated this result transmitted ref erence range: 26 - 36 Seconds. The reference range was not used to int erpret this result as normal/abnormal . Lab Interpretation (test Abnormal code = 86907-7) [facility]uda[facility]IBRINOGEN2020-02-18 17:32:00 Test Item Value Reference Range Interpretation Comments Fibrinogen (test code = 6630672728) 350 mg/dL 167-453 Lab Interpretation (test code = Normal 51170-3) [facility]udaPROTHROMBIN TIME / [id number] 17:32:00 Test Item Value Reference Range Interpretation Comments PROTIME PATIENT (test See_Comment H [Auto mated message] code = 5964-2) The system [facility] generated this result transmitted ref erence range: 10.1 - 1 2.6 Seconds. The reference range was not used to int erpret this result as normal/abnormal . INR (test code = 6301-6) Nor mal INR <1.1; Warfarin Therap eutic range 2.0 to 3. 0 or 2.5 to 3.5, dep ending upon the indica tions. Lab Interpretation (test Abnormal code = 89238-4) [facility]uda[facility]AT [facility] [id number] 17:17:00 Test Item Value Reference Range Interpretation Comments PH (test code = 2) 7.35-7.45 L PCO2 (test code = See_Comment H [Automat ed message] 9371086691) The system [facility] generated this result transmit tennille reference range : 35 - 45 mmHg. The reference range was not used to interpret this result as normal/abnormal . PO2 (test code = See_Comment H [Automated message] 9519362698) The system [facility] generated this result transmit tennille reference range : 80 - 100 mmHg. The reference range was not used to interpret this result as normal/abnormal . BE (test code = See_Comment [Automated message] 9026361003) The system [facility] generated this result transmit tennille reference range : -3.0 - 3.0 mEq/ L. The reference r christine was not used to interpret this result as normal/abnormal . HCO3 (test code = See_Comment H [Automate d message] 7009071957) The system [facility] generated this result transmit tennille reference range : 22 - 26 mEq/L. The reference range was not used to interpret this result as normal/abnormal . %O2HB (test code = 100.0 % 95-98 H 4630318700) NA (test code = 140 mmol/L 135-145 9138294361) K+ (test code = 4.2 mmol/L 3.5-5 2592339409) AC CA IONZ (test code = 4.20 mg/dL 4.5-5.3 L 5678317979) GLUCOSE (test code = 92 mg/dL 70-110 1708114257) AC Hematocrit (test See_Comment LL [Automa tennille message] code = 9557367633) The syste m which generated this result transmit tennille reference range : 40 - 54 VOL %. The reference range was not used to interpret this result as normal/abnormal . THB (test code = 7.5 g/dL 13.5-18 LL 0609500816) AC TC02 (test code = 29 mmol/L See_Comment H [Autom ated message] 5943852899) The system [employer] generated this result transmit tennille reference range : 23-27 mmol/L. T he reference range was not used to interpret this result as normal/abnormal . Lab Interpretation Abnormal (test code = 53333-8) [facility]udaHEMATOCRIT2020-02-18 17:16:00 Test Item Value Reference Range Interpretation Comments HCT (test code = 4544-3) 25.6 % 38.4-49.3 L Lab Interpretation (test code = Abnormal 08508-4) [facility]udaHEMOGLOBIN2020-02-18 17:16:00 Test Item Value Reference Range Interpretation Comments HGB (test code = 718-7) 8.0 g/dL 12.2-16.4 L Lab Interpretation (test code = Abnormal 67482-9) [facility]udaPLATELET [id number] 17:16:00 Test Item Value Reference Range Interpretation Comments PLT (test code = 777-3) See_Comment [Au tomated message] The system [employer] generated this result transmitted ref erence range: 150 - 32 8 10*3/?L. The re ference range was not u sed to interpret this result as normal/abnor mal. Lab Interpretation (test Normal code = 77074-7) [facility] [id number] 17:04:00 Test Item Value Reference Range Interpretation Comments ACTHR (test code = See_Comment H [Automat ed message] 0709507774) The system [employer] generated this result transmitted ref erence range: 96 - 152 Seconds. The reference range was not used to int erpret this result as normal/abnormal . Lab Interpretation (test Abnormal code = 15200-9) [facility] ACUTE CARE [id number] 16:52:00 Test Item Value Reference Range Interpretation Comments PH (test code = 2) 7.35-7.45 PCO2 (test code = See_Comment [Automat ed message] 5717892716) The system [employer] generated this result transmit tennille reference range : 35 - 45 mmHg. The reference range was not used to interpret this result as normal/abnormal . PO2 (test code = See_Comment H [Automated message] 6043710339) The system [employer] generated this result transmit tennille reference range : 80 - 100 mmHg. The reference range was not used to interpret this result as normal/abnormal . BE (test code = See_Comment [Automated message] 3771429296) The system [employer] generated this result transmit tennille reference range : -3.0 - 3.0 mEq/ L. The reference r christine was not used to interpret this result as normal/abnormal . HCO3 (test code = See_Comment H [Automate d message] 4836657141) The system [employer] generated this result transmit tennille reference range : 22 - 26 mEq/L. The reference range was not used to interpret this result as normal/abnormal . %O2HB (test code = 100.0 % 95-98 H 3132661147) NA (test code = 138 mmol/L 135-145 2459819329) K+ (test code = 4.7 mmol/L 3.5-5 0705757511) AC CA IONZ (test code = 4.10 mg/dL 4.5-5.3 L 1672018264) GLUCOSE (test code = 143 mg/dL 70-110 H 5519990150) AC Hematocrit (test See_Comment LL [Automa tennille message] code = 0638053610) The syste m which generated this result transmit tennille reference range : 40 - 54 VOL %. The reference range was not used to interpret this result as normal/abnormal . THB (test code = 8.2 g/dL 13.5-18 LL 2704597369) AC TC02 (test code = 29 mmol/L See_Comment H [Autom ated message] 9549966627) The system [employer] generated this result transmit tennille reference range : 23-27 mmol/L. T he reference range was not used to interpret this result as normal/abnormal . Lab Interpretation Abnormal (test code = 59019-2) [facility] ACT HIGH [id number] 16:41:00 Test Item Value Reference Range Interpretation Comments ACTHR (test code = See_Comment H [Automat ed message] 3481399522) The system [employer] generated this result transmitted ref erence range: 96 - 152 Seconds. The reference range was not used to int erpret this result as normal/abnormal . Lab Interpretation (test Abnormal code = 41087-7) [facility] ACUTE CARE [id number] 16:20:00 Test Item Value Reference Range Interpretation Comments PH (test code = 2) 7.35-7.45 PCO2 (test code = See_Comment [Automat ed message] 1755521223) The system [employer] generated this result transmit tennille reference range : 35 - 45 mmHg. The reference range was not used to interpret this result as normal/abnormal . PO2 (test code = See_Comment H [Automated message] 5195117585) The system [employer] generated this result transmit tennille reference range : 80 - 100 mmHg. The reference range was not used to interpret this result as normal/abnormal . BE (test code = See_Comment [Automated message] 6628047458) The system [employer] generated this result transmit tennille reference range : -3.0 - 3.0 mEq/ L. The reference r christine was not used to interpret this result as normal/abnormal . HCO3 (test code = See_Comment H [Automate d message] 7600108688) The system [employer] generated this result transmit tennille reference range : 22 - 26 mEq/L. The reference range was not used to interpret this result as normal/abnormal . %O2HB (test code = 100.0 % 95-98 H 2127118899) NA (test code = 135 mmol/L 135-145 6058779671) K+ (test code = 4.9 mmol/L 3.5-5 5669839087) AC CA IONZ (test code = 3.80 mg/dL 4.5-5.3 L 6726315276) GLUCOSE (test code = 200 mg/dL 70-110 H 6633727452) AC Hematocrit (test See_Comment L [Automa tennille message] code = 9105333180) The syste m which generated this result transmit tennille reference range : 40 - 54 VOL %. The reference range was not used to interpret this result as normal/abnormal . THB (test code = 8.8 g/dL 13.5-18 L 8348817573) AC TC02 (test code = 29 mmol/L See_Comment H [Autom ated message] 5620513595) The system [employer] generated this result transmit tennille reference range : 23-27 mmol/L. T he reference range was not used to interpret this result as normal/abnormal . Lab Interpretation Abnormal (test code = 94986-6) [facility] ACT HIGH [id number] 16:14:00 Test Item Value Reference Range Interpretation Comments ACTHR (test code = See_Comment H [Automat ed message] 9680572446) The system [employer] generated this result transmitted ref erence range: 96 - 152 Seconds. The reference range was not used to int erpret this result as normal/abnormal . Lab Interpretation (test Abnormal code = 62841-8) [facility] ACUTE CARE [id number] 15:55:00 Test Item Value Reference Range Interpretation Comments PH (test code = 2) 7.35-7.45 L PCO2 (test code = See_Comment H [Automat ed message] 2796105264) The system [employer] generated this result transmit tennille reference range : 35 - 45 mmHg. The reference range was not used to interpret this result as normal/abnormal . PO2 (test code = See_Comment H [Automated message] 0796319980) The system [employer] generated this result transmit tennille reference range : 80 - 100 mmHg. The reference range was not used to interpret this result as normal/abnormal . BE (test code = See_Comment [Automated message] 9135534820) The system [employer] generated this result transmit tennille reference range : -3.0 - 3.0 mEq/ L. The reference r christine was not used to interpret this result as normal/abnormal . HCO3 (test code = See_Comment H [Automate d message] 4869914823) The system [employer] generated this result transmit tennille reference range : 22 - 26 mEq/L. The reference range was not used to interpret this result as normal/abnormal . %O2HB (test code = 100.0 % 95-98 H 7289310607) NA (test code = 135 mmol/L 135-145 2318149408) K+ (test code = 5.7 mmol/L 3.5-5 H 5370636250) AC CA IONZ (test code = 3.50 mg/dL 4.5-5.3 L 0383946195) GLUCOSE (test code = 171 mg/dL 70-110 H 3600771394) AC Hematocrit (test See_Comment L [Automa tennille message] code = 5120127260) The syste m which generated this result transmit tennille reference range : 40 - 54 VOL %. The reference range was not used to interpret this result as normal/abnormal . THB (test code = 8.8 g/dL 13.5-18 L 5282821496) AC TC02 (test code = 30 mmol/L See_Comment H [Autom ated message] 3107928867) The system [employer] generated this result transmit tennille reference range : 23-27 mmol/L. T he reference range was not used to interpret this result as normal/abnormal . Lab Interpretation Abnormal (test code = 99635-6) [facility] ACT HIGH [id number] 15:27:00 Test Item Value Reference Range Interpretation Comments ACTHR (test code = See_Comment H [Automat ed message] 6459850257) The system [employer] generated this result transmitted ref erence range: 96 - 152 Seconds. The reference range was not used to int erpret this result as normal/abnormal . Lab Interpretation (test Abnormal code = 69850-6) [facility] ACUTE CARE [id number] 15:20:00 Test Item Value Reference Range Interpretation Comments PH (test code = 2) 7.35-7.45 PCO2 (test code = See_Comment H [Automat ed message] 5098546305) The system [employer] generated this result transmit tennille reference range : 35 - 45 mmHg. The reference range was not used to interpret this result as normal/abnormal . PO2 (test code = See_Comment H [Automated message] 0904827833) The system [employer] generated this result transmit tennille reference range : 80 - 100 mmHg. The reference range was not used to interpret this result as normal/abnormal . BE (test code = See_Comment H [Automated message] 5731622065) The system [employer] generated this result transmit tennille reference range : -3.0 - 3.0 mEq/ L. The reference r christine was not used to interpret this result as normal/abnormal . HCO3 (test code = See_Comment H [Automate d message] 4124551718) The system [employer] generated this result transmit tennille reference range : 22 - 26 mEq/L. The reference range was not used to interpret this result as normal/abnormal . %O2HB (test code = 100.0 % 95-98 H 5379659077) NA (test code = 135 mmol/L 135-145 9187759941) K+ (test code = 4.5 mmol/L 3.5-5 1404018498) AC CA IONZ (test code = 4.80 mg/dL 4.5-5.3 6823958219) GLUCOSE (test code = 118 mg/dL 70-110 H 5252493174) AC Hematocrit (test See_Comment LL [Automa tennille message] code = 5804031588) The syste m which generated this result transmit tennille reference range : 40 - 54 VOL %. The reference range was not used to interpret this result as normal/abnormal . THB (test code = 7.5 g/dL 13.5-18 LL 5585771659) AC TC02 (test code = 32 mmol/L See_Comment H [Autom ated message] 4114837394) The system [employer] generated this result transmit tennille reference range : 23-27 mmol/L. T he reference range was not used to interpret this result as normal/abnormal . Lab Interpretation Abnormal (test code = 83380-7) [facility] [id number] 15:16:00 Test Item Value Reference Range Interpretation Comments ACTHR (test code = See_Comment H [Automat ed message] 3261623374) The system [employer] generated this result transmitted ref erence range: 96 - 152 Seconds. The reference range was not used to int erpret this result as normal/abnormal . Lab Interpretation (test Abnormal code = 49726-3) [facility] ACT HIGH [id number] 15:09:00 Test Item Value Reference Range Interpretation Comments ACTHR (test code = See_Comment H [Automat ed message] 2132628092) The system [employer] generated this result transmitted ref erence range: 96 - 152 Seconds. The reference range was not used to int erpret this result as normal/abnormal . Lab Interpretation (test Abnormal code = 35066-9) [facility]uda[facility]ren[facility] Packed RBC (in units), 2 Units 2019-09-01 14:20:50 Test Item Value Reference Range Interpretation Comments Cross Match Result Compatible (test code = 4409) ISBT Blood Type Code (test code = 825847) Unit Blood Type (test A Pos code = 4410) Unit Number (test [id number] code = 4411) Blood Expiration Date & Time (test code = 716512) Status Information Issued (test code = 4412) Product Red Blood Cells Identification (test code = 4413) Product Code (test [id number] Performed at [facility] code = 4414) Laboratory Services - [facility] [address] [place] [address]Yswk Free: [phone] A No. [id number] [facility] ACUTE CARE [id number] 14:13:00 Test Item Value Reference Range Interpretation Comments PH (test code = 2) 7.35-7.45 PCO2 (test code = See_Comment [Automat ed message] 8048879654) The system [employer] generated this result transmit tennille reference range : 35 - 45 mmHg. The reference range was not used to interpret this result as normal/abnormal . PO2 (test code = See_Comment H [Automated message] 3382360251) The system [employer] generated this result transmit tennille reference range : 80 - 100 mmHg. The reference range was not used to interpret this result as normal/abnormal . BE (test code = See_Comment H [Automated message] 3689496326) The system [employer] generated this result transmit tennille reference range : -3.0 - 3.0 mEq/ L. The reference r christine was not used to interpret this result as normal/abnormal . HCO3 (test code = See_Comment H [Automate d message] 0708880298) The system [employer] generated this result transmit tennille reference range : 22 - 26 mEq/L. The reference range was not used to interpret this result as normal/abnormal . %O2HB (test code = 100.0 % 95-98 H 6015409879) NA (test code = 135 mmol/L 135-145 7205697513) K+ (test code = 4.2 mmol/L 3.5-5 6446408601) AC CA IONZ (test code = 4.80 mg/dL 4.5-5.3 4272889868) GLUCOSE (test code = 112 mg/dL 70-110 H 0139066262) AC Hematocrit (test See_Comment LL [Automa tennille message] code = 2775408446) The syste m which generated this result transmit tennille reference range : 40 - 54 VOL %. The reference range was not used to interpret this result as normal/abnormal . THB (test code = 6.5 g/dL 13.5-18 LL 2316395886) AC TC02 (test code = 32 mmol/L See_Comment H [Autom ated message] 3773826977) The system [employer] generated this result transmit tennille reference range : 23-27 mmol/L. T he reference range was not used to interpret this result as normal/abnormal . Lab Interpretation Abnormal (test code = 75878-6) [facility] [id number] 13:57:00 Test Item Value Reference Range Interpretation Comments ACTHR (test code = See_Comment L [Automat ed message] 5664699030) The system [employer] generated this result transmitted ref erence range: 96 - 152 Seconds. The reference range was not used to int erpret this result as normal/abnormal . Lab Interpretation (test Abnormal code = 82543-0) [facility]uda[facility] Packed RBC (in units), 4 Units 2019-09-01 12:50:33 Test Item Value Reference Range Interpretation Comments Cross Match Result Compatible (test code = 4409) ISBT Blood Type Code (test code = 602236) Unit Blood Type (test A Pos code = 4410) Unit Number (test [id number] code = 4411) Blood Expiration Date & Time (test code = 724543) Status Information Issued (test code = 4412) Product Red Blood Cells Identification (test code = 4413) Product Code (test [id number] Performed at [facility] code = 4414) Laboratory Services - [facility] Blood [address] [place], [place] [address]Dfxv Free: [phone] A No. [id number] [facility] GLUCOSE (AUTOMATED)2019-09-01 11:29:00 Test Item Value Reference Range Interpretation Comments POCT GLU (test code = 2558552279) 126 mg/dL 70-110 H Lab Interpretation (test code = Abnormal 26118-2) [facility] GLUCOSE (AUTOMATED)2019-09-01 09:37:00 Test Item Value Reference Range Interpretation Comments POCT GLU (test code = 8971613422) 100 mg/dL 70-110 Lab Interpretation (test code = Normal 11427-1) [facility] GLUCOSE (AUTOMATED)2019-09-01 06:00:00 Test Item Value Reference Range Interpretation Comments POCT GLU (test code = 1099468042) 90 mg/dL 70-110 Lab Interpretation (test code = Normal 91087-6) [facility] GLUCOSE (AUTOMATED)2019-09-01 02:26:00 Test Item Value Reference Range Interpretation Comments POCT GLU (test code = 6297553406) 53 mg/dL 70-110 L Lab Interpretation (test code = Abnormal 09384-5) [facility] GLUCOSE (AUTOMATED)2019-08-31 22:18:00 Test Item Value Reference Range Interpretation Comments POCT GLU (test code = 1238791383) 151 mg/dL 70-110 H Lab Interpretation (test code = Abnormal 10758-0) [facility]udaType and Screen - Type and Screen expires at midnight on the 3rd day after it was drawn. A current Type and Screen is required when RBCs are requested. For all other blood products, a Type and Screen performed during the current hospitalization i...2019-08-31 20:48:31 Test Item Value Reference Range Interpretation Comments ABO & RH (test code A Positive Performe d at [facility] = 20) Laboratory Serv ices - [facility] Blood [address] [place], [place] [address]Toll Free: [phone] 266CLIA No. [id number] IAT (test code = Negative Performed a t [facility] 1185) Laboratory Serv ice - [facility] Blood [address] [place], [place] [address] 4Toll Free: [phone] 266CLIA No. [id number] [facility] GLU[facility]AUT[facility]ATED)2019-08-31 18:07:00 Test Item Value Reference Range Interpretation Comments POCT GLU (test code = 3390418652) 76 mg/dL 70-110 Lab Interpretation (test code = Normal 72222-1) [facility]udaSUR[facility]ICAL PATHOLOGY [id number] 16:26:00 Test Item Value Reference Range Interpretation Comments Case Report (test code Surgical Pathology ? ? = [id number]) ?Case: [id number] ? Authorizing Provider: ?Marlo Osman MD ? ? ? Collected: ? 08/26/2019 0744 ?Ordering Location: ? ? [facility] Surgical ? ? ? Received: ?08/26/2019 0923 ? Center [facility] ? Pathologist: ? Ewa Cabrera MD ? Specimens: ? A) - STOMACH, pyloric mass ? B) - ESOPHAGUS, BIOPSY @ 40 CM ? C) - ESOPHAGUS, BOIPSY @ 39 CM ? D) - ESOPHAGUS, BIOPSY @ 38 CM ? E) - ESOPHAGUS, BIOPSY @ 37 CM ? Final Diagnosis (test k5xsaYPzEBHvt1mgSLFlqM code = 5362136036) FuZzEwMzNcZnRuYmpcdWMx KJtwpyZhBMvrd7ZpL5BtFq AwMFxhbnNpXGRlZmxhbmcx HDXkACD1oeDjATSgGZxkZH NfMIfhJc5qlBHwpUfjIgFl XEZxy0pbyiNYemzixNt1e0 dpSCJcDmD6vHCqOVziX1rb zdBbsXViEHQeAQn6qB49LE QhrX9aqSUtFXrgfiWqOkK5 IBxhPWTdHdH4IYBycRDyFV KmJ7kgWMNtNRbaGYLiCLib aVRvDGZ1cXmtz0M2xGLfhA JenAcyFzVkWuPfKEBYp7Oj KRg9pMmkO8ExQBZrHeX6kL QgUGFyYWdyYXBoIEZvbnQ7 gX28ASkshsP2gFKaa1Jil5 2gu545iZ0goYNgHDF2VORw ZLKedBOyZLYnXTC8CGOdiT YnQ6ysLVkmKD6bhqmfZGZ9 MFxtYXJndDcyMFxtYXJnYj FksAOdBONhlKclPAhef810 DWO9ZyZhEC6cP1Lul2F9tD 9maXRcZGVmdGFiNzIwXGZv rt3cgUGkTBfrk5HoKWF2xs M8nOVjvGKzNJYgMM63Axtv p9UtLqdkOCV7ASOvvuDnr0 Bfr1gtAqEvciRwQ2hzF9Hr ZHJoZWFkXHBnYnJkcmZvb3 Mls0TfsMOksWt4g4rrBBEp CGCibUxof2lrZBO1QVGvS7 N8oHTiy1utGDyqMAPrfZO6 rrCtVAGwvHBjP4EyzK4sLB abHU7sdzu3z4seIvOhNZ1m feoej2hfSLygERXhMQC0St ViZZPle1GwtgzcCiQhe6Tp rHZbAXsfP19mc194LVRlug RbE0jliYAwkskidFWdrgac QIqctgC6ZPYbCMKvUFxqMZ YxXGZzMjBcbGFuZzEwMzNc aGljaFxmMVxkYmNoXGYxXG doM2vyWjZtMtUkDSkjOKFv HO1tI0UJPMEFUBqhICjHF8 IOTdQEZFPUNUJKT2iQUGSO UK9FGXbwcCHmKRZaMAPwZE BRGBVLLjuSAWKWAO4VTIPa Q9mBJlMkLTZCAe6TPRrkC6 mUTBLDB1ORQZDIIDiUJGdO IKBYAMMDX4DBJTHHXJjkXK OmTGQpFIIqPZ0JNufRAmTI TlZPTFZFRCBCWSBBREVOT0 5MPMnbANJeBTKrHWLhYK7R XiuOEfMZY0CuEH1MX7vRPP QgQlkgSElHSCBHUkFERSBE WVNQTEFTSUFccGFyICBccG VjMAXjGWYXZ3KODThNUqfc UBYgLKBtD80mJTQPL8CYPD plpSRlCCWeBDLgGDOVN5pY CA7FHxZOTBUZA1XpZ6aFAF WYLcETO5VJBmVTOM6AMXYY JUOFZUDoWTRTZdFEZ7OIFw JyZ9vBQFNFUDWWZAXBJXZR K6JAIFhBL9ndRSBtKBXeMM DuGP6WJHLYJ6FIUFJYURCL REVOVElGSUVEXHBhclxwYX VdIz9aHHLZFIoRC3XOODAX VCAzOSBDTSwgQklPUFNZOl xwYXJccGFyZFxwbGFpblxm TUxthzS5THXdAOhlZYHmSA ZzMjBcbGFuZzEwMzNcaGlj aFxmMVxkYmNoXGYxXGxvY2 swAwZsQsGyTNPsYSWhRJ0x K46ZFU3WLMKzYNSWY9RNOV tBOHmqKQ0WUBBKBN1VRHNQ QRRWFTvPC2aLZDKFT47LOP TYOI9XZEtNCFluIfPOQyYP LvPVZ78QCFWZXKUnxZMuCH FsXHBsYWluXGYwXGZzMjRc tXjznL9lXhYdKzJaQPzoCZ 5hRDJcT6fvyBElDTDmTLJr S3bgZgRjoW3oxKgjVNyflp IwICAgICAgLSBOTyBEWVNQ TEFTSUEgSURFTlRJRklFRF bvNKWlcYAyIQUfBLAEW1MM HVdLIguvDSXjAuvcV05pUD ZEH6NAQGsojKIiFJLvlcKu uTrbqJ1xSyRkFuOjYAsqeC FpblxmMVxmczIwXGxhbmcx ERXlJCccA5gkUlDcQTSkpH fsDJugs4HfDDBwUTTfYmHt ICAgICAtIENPTFVNTkFSIE 2ID15EYSVFKADLYMvVOELD VElOQUwgTUVUQVBMQVNJQS xsR30WE6kUUIBYNDHFBXVM IEJBUlJFVFMgRVNPUEhBR1 NYVOUuctByMZGxLX7lTc0a EIgGSUyTK9mWSLoTAU2ANX ZJRURccGFyXHBhciBFLiAg QIKMGLqAB1SPTZAHPVTqRe BDTSwgQklPUFNZOlxwYXIg RZIrTAIaHXENEXYIA8OVZL 0YS56VQAQWITQQWCLDZzaO LXEWM27SERPXPQCGK3gkHI CwYLFmNPQzOU7UNDVPO4WN QVNJQSBJREVOVElGSUVEXH FohmryCUKonPbxjR8pEaKr FsZaUthzCJ9cYFLxQ6nkxW SnCIYyFWWyR5xdVkIvdL6k aFxmMVxjZjJcZnMyMiBNdW JtFAWsrAYXJIhfgAJjgV9w VY9AVqBxGQVwSLZgDeWmCZ LsBJM0MySuTN2hmScmlG1i ZhCxLnQuBIvbUX0uPLQgA2 arlIDrKTUlOKQnQ3gcOtPz cL3sgYamIYgewvZlTEDplf feXOQ6m3bbhVWeLKVslGEa ZjSrZRCfPBYfe7qrCGHwpC FuZzEwMzNcZnRuYmpcdWMx WGYxRcBqf8qba372pUTik1 ikLVHwYuW2dCQrOATnxRdf fgf9mUuxCyRiAVQkx6fiwe BcZmNoYXJzZXQwIEFyaWFs M023RRAaVQnof0efq6DdHP YdiNTxm9U8IOPOINqbTmFz M083w3gkp5vpblDadPA8XK KaZET2CVxlpoGgjcQ6AVni fHJgItD7IQraxjFyEKiptp FitqAkXqb0GHTuQ843WPN9 bVrur6hmNVE5WJMlDVHoIp oqKz9nnFKqX313FQFpOJRB VLVqvYn5TNQwuxZhktBesP XQt963M745d7smPQQnzmBg eQeBijsmm3nzQ659BGDokW VydzEyMjQwXHBhcGVyaDE1 BDFvOK8flkjgNDraFOxuLV CtfvM2WMIquSHuP6VzCRNl HQ3qarqaSTC0XYwaNONzJX W9QvVvWJQre2Hbves4TcXw cj4ieo81UCJ4j6JizYxiQW U7ELX3KzZgCj2zvUFjOCEj TN4hEtQhvWHkQHUjhw09rV grSWjyztIafS9rHzKpTRLe iUHiSUFvIT9acVPzMHVunG 5ucmxjXHBnYnJkcmhlYWRc rWievrWlTs9kdRfdPNY7PP qhW8tenG9xPcW3ZGxuG9de bZ5tXLt6CYzklKM5ULOfvN 6zZP5rzsthg3lkZJluJNdt JQXxiaD5xcI2ATIszRZoP3 JyfY2fZLDtIW2ltvkhr6kw AKY6GQefHSNtGPY1IzHrNX Xlm0Zfqfq8ZvCer3UeiJEb VImcM86bz511RZOmehBtS5 xwbGFpblxwbGFpblxmMFxm uwT3RISxVEKyTQyzIHRoZL ZzMjBcbGFuZzEwMzNcaGlj aFxmMVxkYmNoXGYxXGxvY2 fbZgAeB0EgTMSoAlCwsYOz HPodoAD1RMQrJEJjy46oeB l6XXZriokow6KoFXCirIPj iWLoxG7pvmPxm1qjIVBgMB RqXHXhO6WnASF7tIAxVLOo jWOtwMB3KL5ioeIaNU7bGU UgYnkgcmVzaWRlbnRzLCBm EOdxx0aoVR6jQLFmrDenwP 8tdQV9XTEth7gatDNtiKCc i7hnx4AcwnSkHHmrFROzQR fqEHFvCTWgBI8qOBBzdWAb usVof9E2TqtvrOUxqjriJb bftnT2YQeqnjngCJLoMPsw O2huDhQmIPNpuXmvGadmw7 NoXGYyXGZzMjhccGFyfX0= Final Diagnosis Comment q8nwiYCoQKYgsFCxAqXjMS (test code = JzJWNhw4uxDBBswKHeYtZj [id number]) MzNcZnRuYmpcdWMxXGRlZm Voy0giq530bAYna1osFKYb XpA4eGLgFDMwoUHtG065IX KcRFrdb8jqh3SyFFVarVOv r8R0XTWZsdtkcLl8dGdwO5 0eq9R7LgrdE2ldFLWlUCTh A5EmOO4qIGBuAbr4GYM2GG Y0GEVbADDwR0RzFF0nNQRg oHHiBDx8c4fyhVliSGJqHL K0u3hsHEmlkhRmZZ5edr5b rZn8t5qwizLpHPOwWHAiqU IHBOUtF1CdsZytWq9kfLr4 eVimTxysMHU1Gtg1EU2dts 93amp3lRrqGLDktevwDuK0 RJxeUDUwlhfrGNb5MYueOZ NxiMWvEVXtxRGvP8OiSYox FO4qbcf7KrUqZV1uvdyiYW wwRZVyHQK2BdRqMSGrt9Yx tkuaMzHtgb7agy92UVW0w5 IptPvbOHT0BLB4ZxFuQr7e zGHqEIKdIT0wWmBviLQvWS Mnrg67mVrsBEkylsJthT2k UcMtSRDwnPGnOGFyRV2mpI CwZSAkqK5zpruxBFGcQgWr ijgeKPWsoHzwruPfTj0jxY vmRQK4WHteV5clbW8tGgA7 TMewJ2mioA5gDCn8LRhamT K3BPVvdI4yGT2cacwny5dv KZS6TQroQWKposR7ekGyJA QrrEFhB4SnmN07WgSruXGi S0IqeI3iXXhxPVVsytk0Dx TaLb2eeYIuuOA5SRrpOkit YWdlXHBnbmNvbnRccGduZG VjXHBsYWluXHBsYWluXGYw PAIzCiXqbIvdmNrewA2hOv QpSuAmBYjbQL7xWMDhU6cc jTTvHOYeTRCjW5kvFdGelZ 9jaFxmMVxmczIwIERyLiBR pXOooXBoWAJanbfim8IoMZ IwGIWmpNuvMPRby4Avx5Lg E4ruQG2aFAMdE3OitQGwsG UoiJobprgpVD2yw2QoLgyw oVO4STYodrOjI81xK0Uzxf G3pRVfLFGvRVQioJCnhv9a aXMuICBccGFyXHBhcn0= Clinical Information 1. R/O CARCINOMA2 - 5. (test code = ? R/O BARRETTS [id number]) Gross Description (test z8wtaDSbZZWqyYPbYvOvFH code = [id number]) VfLTSgv1keNIMomCVfLhRa MzNcZnRuYmpcdWMxXGRlZm Wsp7ded152rLCsi8ztWKCx VhF1lKCzGAFjjAFuQ352JG SjSQmzp7wqq8WeKTPhyYMu w8Y6AZAMewwscIr0j7sbFj LnDiY7aCRyFWvxB4lsxxCz lBFqKIRlZ7ZgrdYQDQHrTs o9rFklY68pu2H4FtwbN2ba ZWQwXGdyZWVuMFxibHVlMC E1XCWkGWE7HUfvujVthjF9 CNkhbPUtRnM2TLh0l0asfP ptYUTcVCY0z1ppFMahtdXa KC7cpp5jcUm5q5tbbsNhWQ KfXZUpjATREZNuW9TedOdi Gt4cdVk6qKzfNbyxCEQ1Ic z4BN0sob96yst3wUpqFGDl eqxzLhI4YVzsNKGbdwteFE g8VXecLBDvjWRbTNGenZMe W8TdUOouIT1prlx1XxAtRF 8vxidoIOraGAOpERX8TkRy QCUba6WehmgiBgEbop7tyb 29PGV0h7IcrCkuVDD7LSS2 SvGcZv9qlZXhOXQsHX9qGy MsyTGzHLHlfu56gQlqKYsi skIauW8wToEqWYNneVVfQR PnHE8ovTMvREUqgU8poicx XHBnYnJkcmhlYWRccGdicm PzAs4sbQbwGER3ZQoaJ2oq yH0uZpW1XTprE0wniJ1lKZ o2JXgzwIZ6TUKljB0iBN2z ckxyp7kyBBA8REwmUTAhwm F0ulGtKFQfwWFvR2DhrZ40 TcKaeYSeU4NlwV5xLNvwYE Dmhcv7DyRmLh8jaQDnjMX8 MFxzYmtwYWdlXHBnbmNvbn RccGduZGVjXHBsYWluXHBs CGvtQZNfJGKgImZeb8DtNK Wkh5xjAtQbq6zpjAn7JDtx bFxwbGFpblxmMFxmczIwXH LdXToePQLuIXGtGwEoH4Am U0rsZP5rEBUyhzHuLOMbmZ DgBDMpeaZub9WdAHypksEx ZRGwwIseZBA2pYVlUIIpSX ByZFNmDQ48SZLiFJkhLNUl XHNiXlBooBozNWkdFTm9Br xwbGFpblxmMVxmczIwIHMg bmFtZSwgVUggbnVtYmVyIF xwbGFpblxmMVxmczIwXHU4 LxKfLRfbFGUojHhpkN3pQp WkNoDyZCNjzH6tHIObYAZr wJmduzunJG4el3VqeCvemH 5zPwGpTmCdHNe4XFAsJMWo Wti5DJBzGJooSBHwOOXfLf VnNGClVGYcm63fwZH9cwAq ZnO1MDQryd5czB5rGVorrr NmhGbpubSmcwDowQ4nnSIt xAHzr82faWI8nUTayEWnUn RhT34twsJzCXjnPuhrcZLm QaqndXIuBbUsK90qNKBqYp J9BWFlNvJ4KBLpNWSonIwo EJ2xODkoOE04HBltEA28VA NtIGFuZCAxLjIgeCAwLjcg xXIrSpIlY78kAiVQgOSlRb IeRXUpZDJ9WCPgUGCywIGr vtXnmkEwrU1wFYOpGX5qVA UvnyaeeYg6MREmU6Wqe90o ZCByZXZlYWxpbmcgYSBmcm wsBalnSIEul1q6jS9wRYXw lNTzp1LbCbVePX4kBBDlKT RcUULgQHdmMUKsNlKbV54c fwWpDVZbIZRzhGDcC4SuEN BhbmQgdGhlIGVudGlyZSBz eGBwbO6mnvJakfMidGEtkT W3CQJnNQWlNNJqAGXJTKIo ZWPkhsFOESY9iO0yVXRrUG K9RGOypuRVMPhoeWBrbffh BEebrjNpPVK2PgKgCQruVT CwpGcywE3jLqUuZgBcBBSJ XDobxAUvM4FgeXOrb0d0aB 9pZCBmcmFnbWVudFxwYXIg LMHsRQGFGNbiy8Ngh72yDZ xiatxpx3MogK7rdMTbmFDu LzJlO74pzhXpvCOzAMK6UJ ExMCwgMiBzbWFsbGVzdCBm smAqnWMzbKUsTZX8Cy8koX PjDUXnLEGnjuN8GLh7RBVv hoVEnOWtpQ9hkyPFMYatXH HwQ2NovzQwWCgmLGWvvt1c bGluIGxhYmVsbGVkIHdpdG ggdGhlIHBhdGllbnRccGxh lJ6iQgEfOuOuBIn5EBQnVy BcJzkyXHBsYWluXGYxXGZz MoDvfjMzLF3tDQZLXUBcwI 6aKOItGGYykRroU2BiTCYu aE7mx0shTCAvGSMmT97kgZ pneF9jGnGdReKmBZq0PPLp AJMpCmd5ERTxIHvwZVOlTB YoYjKlICXgDOZqc59aaMS7 fgIbXcSxHGPlxh5khZ3aOY mmspWfyZbuxlJov0V3VJVg m8D6GHXndvPktOIgnKSgTW EtAmX1KMPgShS3PUEfXsUq tWgzRVHzMAOgtPQaaH9rip UahiKlyPm2PEYeGJX0aUCp dRrsVCQqRmsdlPK7BBMhXr BmagMla4EvqPr9dANeMNzm KADiuT1seZ3eCoXbAXYswd JTtLBbnN8iumXFIDpbLFHy J4FfarCtBJuaBZMmnf9uoN luIGxhYmVsbGVkIHdpdGgg dGhlIHBhdGllbnRccGxhaW 5hOcJoXwFiHHw6NTHkYqJf JzkyXHBsYWluXGYxXGZzMj OddrQuSQ3kUAHWQBCyyQ3r JLVsHMQxxSgiF3GfRAUhdX 6cp5btJWVcXmkdB74xrPek wH4qSgBmUtQsWNd5JXYwNB XsPjs8SUFkQMymDCNhVYXx JdHzHRJpMOIwe79bxHG6mj BeDjFcBQMhsf2ziU5uYUbn scFlnQxsahRrh7T3VXGni1 T2JIZlwyJjoUKlfTQxBJNz KpQ6OEKuOwZ4XPXzWuVpdJ vnGDCqFHAxsSTfwL0yzqXw tkUqjDp6FVIwNLV6yKYxnF raIMMpIuoblQR3GRJkXuVy ryXrj0ZooIp7zIKqMTdnNF YdjE1ytQ8jThTiFOSekpTJ uFXepU4xioVATFkiVYTbO5 BtptBqRAlqMTXcmd0zjWcq IGxhYmVsbGVkIHdpdGggdG gzABXriNigqjMbaYtmjH4m UnImHwPpYZs6ZJBpMzEeTe kyXHBsYWluXGYxXGZzMjAg bhGxZH8nENFHXBXzkL1xTQ IfYYLdnFjsO5UvBTXamD5o p3ziDIMrTqjbW18oxJscvA 5vBlPjLkIfVFv2BFQqGBXs Fom9HRSbADcoOLFhWTVxVz KqVZWdNEIhj78xqOX4ndCs FzWqARSxlu6avI4yBEwtcc ZfjQtkjbVpr8Y1OVZvi3O4 ZSBmcmFnbWVudHMgKDAuNC Z0EYPpPcG0VFAhItYyeHja VPAhSAVsxSGtyW0zndWzok VudHl9FYUtCLE3xIAvuEvd HWGpBdqpeVD3QZCnVmMmhs Rpn5OicLg4aTFkTElkHTWo dI7ljJ2oRNKfNVFvymMHxX StfH5oflCEEGdyYNVtH7Lq nzItZYxsAXAhbf9kwXieGA xhYmVsbGVkIHdpdGggdGhl RIWhpNsjwlSddGorsG4mMd CuNgHqUBs7YSRmRpIwCgnz XHBsYWluXGYxXGZzMjAgcy EqUY2nTFXJGHVnzP4zSKQy ONYxoVdoU7QkXWZhrK0kt8 hvTOQoGiqlB61ttPvtnX2o ZiAuLjZzTDd2EPQxPHMiEd r2NZMoKQuwUYJvTMGdDkYw LLQzKVVle95kxBZ0nkSwId FjRKTsuv4epH3jEMtnvlHf uRguivNeh9J8AQWgg2J6OE BmcmFnbWVudHMgKDAuNiB4 OCBrDzI8MUZuBkSypFbpMT LrPPDpyEFhrS6uoyEwgmJw bYk7NUFtVRU4qOUbhOlhJF WhOlktnDQ1UYKdYeWujaEx i7BmnOg1fBZcMAyjZCAdiN 3ouT4pCFFsPOJvwamiURGo XHBsYWluXGYwXGZzMjBccG rftY3jMpIaNjUgFYFZJBHt LZ37byhgxjSYYCSzBML6nY 6kz8gfo6RyQZMjtUK0TW12 KCqyuCQpxchkRkgmhsT1PF invaxaGNLcCHvmG4ueWbAy DUXfdYncAzjro4LgXCMmBR FuEHxvlcK2MHTlbiglYZWg aXogqAgaiW6pOfJnQnNlYE xwbGFpblxmMVxmczIwXHBh cn0= Embedded Images (test code = 6308167734) [facility] GLUCOSE (AUTOMATED)2019-08-31 14:14:00 Test Item Value Reference Range Interpretation Comments POCT GLU (test code = 7546956709) 88 mg/dL 70-110 Lab Interpretation (test code = Normal 59905-9) [facility] METABOLIC PANEL (NA, K, CL, CO2, GLUCOSE, BUN, CREATININE, CA)2019-08-31 10:39:00 Test Item Value Reference Range Interpretation Comments NA (test code = 137 mmol/L 135-145 1991906910) K (test code = 3.8 mmol/L 3.5-5 6889557494) CL (test code = 104 mmol/L 98-108 2570082911) CO2 TOTAL (test code = 27 mmol/L 23-31 3191663846) AGAP (test code = 2-16 7366143956) BUN (test code = 25 mg/dL 7-23 H 0021403015) GLUCOSE (test code = 115 mg/dL 70-110 H 4871452778) CREATININE (test code = 1.79 mg/dL 0.6-1.25 H 1471192769) CALCIUM (test code = 7.8 mg/dL 8.6-10.6 L 5231493655) eGFR Calculation mL/min/1.73m2 (Non-) (test code = 2733022230) eGFR Calculation mL/min/1.73m2 () (test code = 4679893973) JUAN LUIS (test code = JUAN LUIS) [...] tests). Lab Interpretation Abnormal (test code = 54875-4) [facility] GLUCOSE (AUTOMATED)2019-08-31 10:31:00 Test Item Value Reference Range Interpretation Comments POCT GLU (test code = 3466461878) 137 mg/dL 70-110 H Lab Interpretation (test code = Abnormal 17520-0) [facility] WITH [id number] 10:30:00 Test Item Value Reference Range Interpretation [...] (test code = 35.0 fL 38.5-51.6 L 79399-9) RDW-CV (test code = 14.7 % 12.1-15.4 788-0) PLT (test code = See_Comment [Automated 777-3) message] The sy stem which generated this result transmitted reference range : 150 - 328 10*3/ ?L. The reference r christine was not used to interpret this result as normal/abnormal . MPV (test code = 10.4 fL 9.8-13 38833-6) NRBC/100 WBC (test See_Comment [Automat ed code = 5042163657) message] The system which generated this result transmitted reference range : 0.0 - 10.0 /100 WBCs. The refer ence range was not u sed to interpret th is result as normal/abnormal . NRBC x10^3 (test code <0.01 See_Comment [Auto mated = 0054623892) message] The s ystem which generated this result transmitted reference range : 10*3/?L. The reference range was not used to interpret this result as normal/abnormal . GRAN MAT (NEUT) % 60.5 % (test code = 770-8) IMM GRAN % (test code 0.20 % = 0152207874) LYMPH % (test code = 24.9 % 736-9) MONO % (test code = 9.6 % 5905-5) EOS % (test code = 4.1 % 713-8) BASO % (test code = 0.7 % 706-2) GRAN MAT x10^3(ANC) 5.16 10*3/uL 1.99-6.95 (test code = 8722537922) IMM GRAN x10^3 (test <0.03 0-0.06 code = 3999646339) LYMPH x10^3 (test code 2.13 10*3/uL 1.09-3.23 = 731-0) MONO x10^3 (test code 0.82 10*3/uL 0.36-1.02 = 742-7) EOS x10^3 (test code = 0.35 10*3/uL 0.06-0.53 711-2) BASO x10^3 (test code 0.06 10*3/uL 0.01-0.09 = 704-7) Lab Interpretation Abnormal (test code = 45114-1) [facility] GLUCOSE (AUTOMATED)2019-08-31 06:17:00 Test Item Value Reference Range Interpretation Comments POCT GLU (test code = 7083535894) 177 mg/dL 70-110 H Lab Interpretation (test code = Abnormal 61134-5) [facility] GLUCOSE (AUTOMATED)2019-08-31 02:18:00 Test Item Value Reference Range Interpretation Comments POCT GLU (test code = 7776308275) 86 mg/dL 70-110 Lab Interpretation (test code = Normal 42946-1) [facility] GLUCOSE (AUTOMATED)2019-08-30 21:57:00 Test Item Value Reference Range Interpretation Comments POCT GLU (test code = 9198383587) 140 mg/dL 70-110 H Lab Interpretation (test code = Abnormal 55833-0) [facility] GLUCOSE (AUTOMATED)2019-08-30 18:10:00 Test Item Value Reference Range Interpretation Comments POCT GLU (test code = 2650509497) 95 mg/dL 70-110 Lab Interpretation (test code = Normal 54481-3) [facility] GLUCOSE (AUTOMATED)2019-08-30 14:11:00 Test Item Value Reference Range Interpretation Comments POCT GLU (test code = 2271086576) 123 mg/dL 70-110 H Lab Interpretation (test code = Abnormal 66123-8) [facility] GLUCOSE (AUTOMATED)2019-08-30 11:04:00 Test Item Value Reference Range Interpretation Comments POCT GLU (test code = 0106667203) 136 mg/dL 70-110 H Lab Interpretation (test code = Abnormal 65492-4) [facility] GLUCOSE (AUTOMATED)2019-08-30 05:39:00 Test Item Value Reference Range Interpretation Comments POCT GLU (test code = 9340908836) 172 mg/dL 70-110 H Lab Interpretation (test code = Abnormal 75673-0) [facility] GLUCOSE (AUTOMATED)2019-08-30 04:19:00 Test Item Value Reference Range Interpretation Comments POCT GLU (test code = 5272536543) 198 mg/dL 70-110 H Lab Interpretation (test code = Abnormal 76815-3) [facility] GLUCOSE (AUTOMATED)2019-08-29 18:14:00 Test Item Value Reference Range Interpretation Comments POCT GLU (test code = 6164460638) 93 mg/dL 70-110 Lab Interpretation (test code = Normal 19459-7) [facility] GLUCOSE (AUTOMATED)2019-08-29 14:19:00 Test Item Value Reference Range Interpretation Comments POCT GLU (test code = 6278944003) 70 mg/dL 70-110 Lab Interpretation (test code = Normal 08335-5) [facility]2019-08-29 09:59:00 Test Item Value Reference Range Interpretation Comments NA (test code = 136 mmol/L 135-145 6212138882) K (test code = 3.5 mmol/L 3.5-5 4653348501) CL (test code = 105 mmol/L 98-108 8891179150) CO2 TOTAL (test code = 26 mmol/L 23-31 3702290777) AGAP (test code = 2-16 2014280784) BUN (test code = 21 mg/dL 7-23 6452695488) GLUCOSE (test code = 58 mg/dL 70-110 L 0851929664) CREATININE (test code = 0.95 mg/dL 0.6-1.25 8872159178) TOTAL BILI (test code = 0.2 mg/dL 0.1-1.8 9675273955) CALCIUM (test code = 7.4 mg/dL 8.6-10.6 L 5873856760) T PROTEIN (test code = 5.2 g/dL 6.3-8.2 L 3327657596) ALBUMIN (test code = 2.4 g/dL 3.5-5 L 0027985089) ALK PHOS (test code = 67 U/L 34-122 8775860321) ALTv (test code = 15 U/L 5-50 1742-6) AST(SGOT) (test code = 28 U/L 13-40 5855940775) eGFR Calculation mL/min/1.73m2 (Non-) (test code = 1464904458) eGFR Calculation mL/min/1.73m2 () (test code = 2791266807) JUAN LUIS (test code = JUAN LUIS) [...] tests). Lab Interpretation Abnormal (test code = 58451-4) [facility] GLUCOSE (AUTOMATED)2019-08-29 09:59:00 Test Item Value Reference Range Interpretation Comments POCT GLU (test code = 6719687110) 130 mg/dL 70-110 H Lab Interpretation (test code = Abnormal 05595-2) [facility] GLUCOSE (AUTOMATED)2019-08-29 06:21:00 Test Item Value Reference Range Interpretation Comments POCT GLU (test code = 8857959602) 79 mg/dL 70-110 Lab Interpretation (test code = Normal 71019-7) [facility] GLUCOSE (AUTOMATED)2019-08-29 03:53:00 Test Item Value Reference Range Interpretation Comments POCT GLU (test code = 3919139736) 157 mg/dL 70-110 H Lab Interpretation (test code = Abnormal 61398-8) [facility] ABDOMEN LIMITED WITH [id number] 00:28:331. Slightly enlarged liver with increased and [...] disease.4. Right renal cyst5. [facility]2019-08-28 22:47:00 Test Item Value Reference Range Interpretation Comments POCT GLU (test code = 4710888296) 139 mg/dL 70-110 H Lab Interpretation (test code = Abnormal 94820-3) [facility]-08-28 18:56:00 Test Item Value Reference Range Interpretation Comments POCT GLU (test code = 2175757825) 90 mg/dL 70-110 Lab Interpretation (test code = Normal 21369-8) [facility] METABOLIC PANEL (NA, K, CL, CO2, GLUCOSE, BUN, CREATININE, CA)2019-08-28 14:50:00 Test Item Value Reference Range Interpretation Comments NA (test code = 136 mmol/L 135-145 8638668365) K (test code = 4.1 mmol/L 3.5-5 1486007799) CL (test code = 105 mmol/L 98-108 6277343720) CO2 TOTAL (test code = 27 mmol/L 23-31 1786473626) AGAP (test code = 2-16 6487500881) BUN (test code = 26 mg/dL 7-23 H 4294896776) GLUCOSE (test code = 78 mg/dL 70-110 4267550995) CREATININE (test code = 1.06 mg/dL 0.6-1.25 3085042224) CALCIUM (test code = 7.5 mg/dL 8.6-10.6 L 1100951965) eGFR Calculation mL/min/1.73m2 (Non-) (test code = 7942934329) eGFR Calculation mL/min/1.73m2 () (test code = 9031610287) JUAN LUIS (test code = JUAN LUIS) [...] tests). Lab Interpretation Abnormal (test code = 81649-1) [facility] 14:50:00 Test Item Value Reference Range Interpretation Comments MAGNESIUM (test code = 5032816612) 2.3 mg/dL 1.7-2.4 Lab Interpretation (test code = Normal 89053-8) [facility] [id number] 14:45:00 Test Item Value Reference Range Interpretation [...] (test code = 35.3 fL 38.5-51.6 L 96300-3) RDW-CV (test code = 14.6 % 12.1-15.4 788-0) PLT (test code = See_Comment [Automated 777-3) message] The sy stem which generated this result transmitted reference range : 150 - 328 10*3/ ?L. The reference r christine was not used to interpret this result as normal/abnormal . MPV (test code = 10.9 fL 9.8-13 06359-6) NRBC/100 WBC (test See_Comment [Automat ed code = 7957632319) message] The system which generated this result transmitted reference range : 0.0 - 10.0 /100 WBCs. The refer ence range was not u sed to interpret th is result as normal/abnormal . NRBC x10^3 (test code <0.01 See_Comment [Auto mated = 0306047212) message] The s ystem which generated this result transmitted reference range : 10*3/?L. The reference range was not used to interpret this result as normal/abnormal . GRAN MAT (NEUT) % 63.4 % (test code = 770-8) IMM GRAN % (test code 0.50 % = 8467465311) LYMPH % (test code = 21.1 % 736-9) MONO % (test code = 10.4 % 5905-5) EOS % (test code = 4.1 % 713-8) BASO % (test code = 0.5 % 706-2) GRAN MAT x10^3(ANC) 4.14 10*3/uL 1.99-6.95 (test code = 3488718610) IMM GRAN x10^3 (test 0.03 10*3/uL 0-0.06 code = 3974649287) LYMPH x10^3 (test code 1.38 10*3/uL 1.09-3.23 = 731-0) MONO x10^3 (test code 0.68 10*3/uL 0.36-1.02 = 742-7) EOS x10^3 (test code = 0.27 10*3/uL 0.06-0.53 711-2) BASO x10^3 (test code 0.03 10*3/uL 0.01-0.09 = 704-7) Lab Interpretation Abnormal (test code = 50489-6) [facility] GLUCOSE (AUTOMATED)2019-08-28 14:07:00 Test Item Value Reference Range Interpretation Comments POCT GLU (test code = 2779515158) 134 mg/dL 70-110 H Lab Interpretation (test code = Abnormal 10858-0) [facility] GLUCOSE (AUTOMATED)2019-08-28 07:20:00 Test Item Value Reference Range Interpretation Comments POCT GLU (test code = 8158165035) 144 mg/dL 70-110 H Lab Interpretation (test code = Abnormal 42741-7) [facility] GLUCOSE (AUTOMATED)2019-08-28 03:13:00 Test Item Value Reference Range Interpretation Comments POCT GLU (test code = 5855973454) 203 mg/dL 70-110 H Lab Interpretation (test code = Abnormal 73436-7) [facility] GLUCOSE (AUTOMATED)2019-08-27 22:32:00 Test Item Value Reference Range Interpretation Comments POCT GLU (test code = 1653044343) 96 mg/dL 70-110 Lab Interpretation (test code = Normal 32217-9) [facility] THORAX WO [id number] 18:39:06 Bilateral diffuse interlobular septal thickening, bilateral [...] for increased pulmonaryarterial pressure, echocardiographic evaluation is recommended.[facility] GLUCOSE (AUTOMATED)2019-08-27 17:57:00 Test Item Value Reference Range Interpretation Comments POCT GLU (test code = 0269400972) 155 mg/dL 70-110 H Lab Interpretation (test code = Abnormal 95897-4) [facility] GLUCOSE (AUTOMATED)2019-08-27 14:13:00 Test Item Value Reference Range Interpretation Comments POCT GLU (test code = 3764921860) 151 mg/dL 70-110 H Lab Interpretation (test code = Abnormal 07003-3) [facility] GLUCOSE (AUTOMATED)2019-08-27 10:41:00 Test Item Value Reference Range Interpretation Comments POCT GLU (test code = 212 mg/dL 70-110 H Notifi ed Provider [id number]) Lab Interpretation (test Abnormal code = 07359-5) [facility] GLUCOSE (AUTOMATED)2019-08-27 05:59:00 Test Item Value Reference Range Interpretation Comments POCT GLU (test code = 160 mg/dL 70-110 H Notifi ed Provider [id number]) Lab Interpretation (test Abnormal code = 31343-5) [facility] GLUCOSE (AUTOMATED)2019-08-27 04:13:00 Test Item Value Reference Range Interpretation Comments POCT GLU (test code = 6017566302) 112 mg/dL 70-110 H Lab Interpretation (test code = Abnormal 44320-4) [facility] GLUCOSE (AUTOMATED)2019-08-27 02:40:00 Test Item Value Reference Range Interpretation Comments POCT GLU (test code = 184 mg/dL 70-110 H Notifi ed Provider [id number]) Lab Interpretation (test Abnormal code = 30967-4) [facility] GLUCOSE (AUTOMATED)2019-08-26 23:44:00 Test Item Value Reference Range Interpretation Comments POCT GLU (test code = 6689796551) 263 mg/dL 70-110 H Lab Interpretation (test code = Abnormal 46964-1) [facility] GLUCOSE (AUTOMATED)2019-08-26 23:02:00 Test Item Value Reference Range Interpretation Comments POCT GLU (test code = 2536960347) 246 mg/dL 70-110 H Lab Interpretation (test code = Abnormal 09095-4) [facility] Arterial Blood Gas.2019-08-26 20:26:00 Test Item Value Reference Range Interpretation Comments PH (test code = 2) 7.35-7.45 H PCO2 (test code = See_Comment [Automat ed message] 5729278482) The system [employer] generated this result transmitted ref erence range: 35 - 45 mmHg. The reference r christine was not used to interpret this result as normal/abnor mal. PO2 (test code = See_Comment LL [Automated message] 1239564216) The system [employer] generated this result transmitted ref erence range: 80 - 100 mmHg. The reference r christine was not used to interpret this result as normal/abnor mal. HCO3 (test code = See_Comment H [Automate d message] 8357845200) The system [employer] generated this result transmitted ref erence range: 22 - 26 mEq/L. The reference r christine was not used to interpret this result as normal/abnor mal. BE (test code = See_Comment H [Automated message] 3679616138) The system [employer] generated this result transmitted ref erence range: -3.0 - 3 .0 mEq/L. The refe rence range was not u sed to interpret this result as normal/abnor mal. Lab Interpretation (test Abnormal code = 92695-9) [facility] GLUCOSE (AUTOMATED)2019-08-26 18:12:00 Test Item Value Reference Range Interpretation Comments POCT GLU (test code = 4393755115) 172 mg/dL 70-110 H Lab Interpretation (test code = Abnormal 60162-3) [facility] GLUCOSE (AUTOMATED)2019-08-26 15:33:00 Test Item Value Reference Range Interpretation Comments POCT GLU (test code = 2772186173) 86 mg/dL 70-110 Lab Interpretation (test code = Normal 55955-5) [facility] 11:57:00 Test Item Value Reference Range Interpretation Comments POCT GLU (test code = 0859810891) 86 mg/dL 70-110 Lab Interpretation (test code = Normal 49367-1) [facility] GLUCOSE (AUTOMATED)2019-08-25 21:38:00 Test Item Value Reference Range Interpretation Comments POCT GLU (test code = 4743835060) 89 mg/dL 70-110 Lab Interpretation (test code = Normal 35093-3) [facility] GLUCOSE (AUTOMATED)2019-08-25 20:46:00 Test Item Value Reference Range Interpretation Comments POCT GLU (test code = 1960559764) 75 mg/dL 70-110 Lab Interpretation (test code = Normal 79522-4) [facility] GLUCOSE (AUTOMATED)2019-08-25 20:46:00 Test Item Value Reference Range Interpretation Comments POCT GLU (test code = 3053161697) 76 mg/dL 70-110 Lab Interpretation (test code = Normal 10230-3) [facility] GLUCOSE (AUTOMATED)2019-08-25 20:12:00 Test Item Value Reference Range Interpretation Comments POCT GLU (test code = 6939142525) 83 mg/dL 70-110 Lab Interpretation (test code = Normal 42554-5) [facility] GLUCOSE (AUTOMATED)2019-08-25 19:45:00 Test Item Value Reference Range Interpretation Comments POCT GLU (test code = 4944313641) 96 mg/dL 70-110 Lab Interpretation (test code = Normal 43294-9) [facility] 19:02:00 Test Item Value Reference Range Interpretation Comments POCT GLU (test code = 8811600817) 87 mg/dL 70-110 Lab Interpretation (test code = Normal 03279-1) [facility] GLUCOSE (AUTOMATED)2019-08-25 19:02:00 Test Item Value Reference Range Interpretation Comments POCT GLU (test code = 3893660756) 78 mg/dL 70-110 Lab Interpretation (test code = Normal 79042-2) [facility] GLUCOSE (AUTOMATED)2019-08-25 18:28:00 Test Item Value Reference Range Interpretation Comments POCT GLU (test code = 9615204437) 42 mg/dL 70-110 LL Lab Interpretation (test code = Abnormal 78192-1) [facility] GLUCOSE (AUTOMATED)2019-08-25 18:28:00 Test Item Value Reference Range Interpretation Comments POCT GLU (test code = 0558497713) 44 mg/dL 70-110 LL Lab Interpretation (test code = Abnormal 04251-6) [facility] GLUCOSE (AUTOMATED)2019-08-25 18:28:00 Test Item Value Reference Range Interpretation Comments POCT GLU (test code = 7304019420) 77 mg/dL 70-110 Lab Interpretation (test code = Normal 74460-2) [facility] GLUCOSE (AUTOMATED)2019-08-25 18:28:00 Test Item Value Reference Range Interpretation Comments POCT GLU (test code = 8692417492) 110 mg/dL 70-110 Lab Interpretation (test code = Normal 20880-0) [facility] (NA, K, CL, CO2, GLUCOSE, BUN, CREATININE, CA)2019-08-25 10:57:00 Test Item Value Reference Range Interpretation Comments NA (test code = 136 mmol/L 135-145 4917890450) K (test code = 4.5 mmol/L 3.5-5 2784873046) CL (test code = 100 mmol/L 98-108 8638539920) CO2 TOTAL (test code = 30 mmol/L 23-31 5273272991) AGAP (test code = 2-16 8306404913) BUN (test code = 38 mg/dL 7-23 H 0048938186) GLUCOSE (test code = 89 mg/dL 70-110 2109203309) CREATININE (test code = 1.46 mg/dL 0.6-1.25 H 5621174302) CALCIUM (test code = 7.7 mg/dL 8.6-10.6 L 6520181360) eGFR Calculation mL/min/1.73m2 (Non-) (test code = 8967476874) eGFR Calculation mL/min/1.73m2 () (test code = 4029183690) JUAN LUIS (test code = JUAN LUIS) [...] tests). Lab Interpretation Abnormal (test code = 51850-9) [facility] WITH [id number] 10:46:00 Test Item Value Reference Range Interpretation Comments WBC (test code = See_Comment [Automated 1639-2) message] The sy stem which generated this result transmitted reference range : 4.20 - 10.70 10*3/?L. The reference range was not used to interpret this result as normal/abnormal . RBC (test code = See_Comment L [Automated 044-5) message] The sy stem which generated this [...] (test code = 34.5 fL 38.5-51.6 L 14101-6) RDW-CV (test code = 14.7 % 12.1-15.4 788-0) PLT (test code = See_Comment [Automated 777-3) message] The sy stem which generated this result transmitted reference range : 150 - 328 10*3/ ?L. The reference r christine was not used to interpret this result as normal/abnormal . MPV (test code = 11.7 fL 9.8-13 42717-1) NRBC/100 WBC (test See_Comment [Automat ed code = 6626196419) message] The system which generated this result transmitted reference range : 0.0 - 10.0 /100 WBCs. The refer ence range was not u sed to interpret th is result as normal/abnormal . NRBC x10^3 (test code <0.01 See_Comment [Auto mated = 2768129976) message] The s ystem which generated this result transmitted reference range : 10*3/?L. The reference range was not used to interpret this result as normal/abnormal . GRAN MAT (NEUT) % 63.6 % (test code = 770-8) IMM GRAN % (test code 0.30 % = 8831660121) LYMPH % (test code = 19.7 % 736-9) MONO % (test code = 12.6 % 5905-5) EOS % (test code = 3.5 % 713-8) BASO % (test code = 0.3 % 706-2) GRAN MAT x10^3(ANC) 5.60 10*3/uL 1.99-6.95 (test code = 1229681091) IMM GRAN x10^3 (test 0.03 10*3/uL 0-0.06 code = 0054038218) LYMPH x10^3 (test code 1.74 10*3/uL 1.09-3.23 = 731-0) MONO x10^3 (test code 1.11 10*3/uL 0.36-1.02 H = 742-7) EOS x10^3 (test code = 0.31 10*3/uL 0.06-0.53 711-2) BASO x10^3 (test code 0.03 10*3/uL 0.01-0.09 = 704-7) Lab Interpretation Abnormal (test code = 51151-1) [facility] [id number] 05:01:32Tip of the nasogastric tube is in [...] of the nasogastric tube is in appropriate positionUn[facility] ([facility]ATED)2019-08-25 02:05:00 Test Item Value Reference Range Interpretation Comments POCT GLU (test code = 75 mg/dL 70-110 Notifi ed Provider [id number]) Lab Interpretation (test Normal code = 89461-1) [facility]2019-08-24 22:24:00 Test Item Value Reference Range Interpretation Comments POCT GLU (test code = 4282231785) 134 mg/dL 70-110 H Lab Interpretation (test code = Abnormal 71042-4) [facility] GLUCOSE (AUTOMATED)2019-08-24 18:27:00 Test Item Value Reference Range Interpretation Comments POCT GLU (test code = 5194558873) 137 mg/dL 70-110 H Lab Interpretation (test code = Abnormal 65645-2) [facility]2019-08-24 14:05:00 Test Item Value Reference Range Interpretation Comments POCT GLU (test code = 6872506561) 178 mg/dL 70-110 H Lab Interpretation (test code = Abnormal 86678-3) [facility] METABOLIC PANEL (NA, K, CL, CO2, GLUCOSE, BUN, CREATININE, CA)2019-08-24 12:33:00 Test Item Value Reference Range Interpretation Comments NA (test code = 133 mmol/L 135-145 L 5680316947) K (test code = 4.3 mmol/L 3.5-5 7398966888) CL (test code = 98 mmol/L 98-108 7947923886) CO2 TOTAL (test code = 28 mmol/L 23-31 9784863777) AGAP (test code = 2-16 0099042359) BUN (test code = 39 mg/dL 7-23 H 6339189184) GLUCOSE (test code = 122 mg/dL 70-110 H 4520273302) CREATININE (test code = 1.51 mg/dL 0.6-1.25 H 0887340311) CALCIUM (test code = 7.8 mg/dL 8.6-10.6 L 8037488896) eGFR Calculation mL/min/1.73m2 (Non-) (test code = 7366993365) eGFR Calculation mL/min/1.73m2 () (test code = 4371212514) JUAN LUIS (test code = JUAN LUIS) [...] tests). Lab Interpretation Abnormal (test code = 93096-9) [facility] WITH [id number] 12:27:00 Test Item Value Reference Range Interpretation Comments WBC (test code = See_Comment [Automated 9490-2) message] The sy stem which generated this [...] (test code = 34.7 fL 38.5-51.6 L 25806-5) RDW-CV (test code = 15.0 % 12.1-15.4 788-0) PLT (test code = See_Comment [Automated 777-3) message] The sy stem which generated this result transmitted reference range : 150 - 328 10*3/ ?L. The reference r christine was not used to interpret this result as normal/abnormal . MPV (test code = 11.3 fL 9.8-13 51841-8) IPF % (test code = 4.1 % 1.2-10.7 Platelet count 8512446524) measured by fluorescence method. NRBC/100 WBC (test See_Comment [Automat ed code = 3281167195) message] The system which generated this result transmitted reference range : 0.0 - 10.0 /100 WBCs. The refer ence range was not u sed to interpret th is result as normal/abnormal . NRBC x10^3 (test code <0.01 See_Comment [Auto mated = 5740054377) message] The s ystem which generated this result transmitted reference range : 10*3/?L. The reference range was not used to interpret this result as normal/abnormal . GRAN MAT (NEUT) % 71.8 % (test code = 770-8) IMM GRAN % (test code 0.40 % = 9029058850) LYMPH % (test code = 13.7 % 736-9) MONO % (test code = 11.2 % 5905-5) EOS % (test code = 2.6 % 713-8) BASO % (test code = 0.3 % 706-2) GRAN MAT x10^3(ANC) 6.76 10*3/uL 1.99-6.95 (test code = 7605287852) IMM GRAN x10^3 (test 0.04 10*3/uL 0-0.06 code = 8573212453) LYMPH x10^3 (test code 1.29 10*3/uL 1.09-3.23 = 731-0) MONO x10^3 (test code 1.05 10*3/uL 0.36-1.02 H = 742-7) EOS x10^3 (test code = 0.24 10*3/uL 0.06-0.53 711-2) BASO x10^3 (test code 0.03 10*3/uL 0.01-0.09 = 704-7) Lab Interpretation Abnormal (test code = 59568-5) [facility] GLUCOSE (AUTOMATED)2019-08-24 10:30:00 Test Item Value Reference Range Interpretation Comments POCT GLU (test code = 7570616081) 176 mg/dL 70-110 H Lab Interpretation (test code = Abnormal 99417-3) [facility] GLUCOSE (AUTOMATED)2019-08-24 05:45:00 Test Item Value Reference Range Interpretation Comments POCT GLU (test code = 0988760332) 187 mg/dL 70-110 H Lab Interpretation (test code = Abnormal 96341-7) [facility] GLUCOSE (AUTOMATED)2019-08-24 01:54:00 Test Item Value Reference Range Interpretation Comments POCT GLU (test code = 8273253660) 156 mg/dL 70-110 H Lab Interpretation (test code = Abnormal 69730-0) [facility] GLUCOSE (AUTOMATED)2019-08-23 23:09:00 Test Item Value Reference Range Interpretation Comments POCT GLU (test code = 8435612993) 110 mg/dL 70-110 Lab Interpretation (test code = Normal 18155-9) [facility] IRON BINDING [id number] 22:07:00 Test Item Value Reference Range Interpretation Comments TIBC (test code = 4414285409) 230 ug/dL 250-410 L % FE SAT (test code = 4081906915) 15 % 20-50 L Lab Interpretation (test code = Abnormal 14535-1) [facility] 21:58:00 Test Item Value Reference Range Interpretation Comments IRON (test code = 1476283577) 35 ug/dL 50-160 L Lab Interpretation (test code = Abnormal 72956-5) [facility] GLUCOSE (AUTOMATED)2019-08-23 18:08:00 Test Item Value Reference Range Interpretation Comments POCT GLU (test code = 2863753479) 78 mg/dL 70-110 Lab Interpretation (test code = Normal 67586-4) [facility] GLUCOSE (AUTOMATED)2019-08-23 14:32:00 Test Item Value Reference Range Interpretation Comments POCT GLU (test code = 0026772461) 126 mg/dL 70-110 H Lab Interpretation (test code = Abnormal 34030-7) [facility] GLUCOSE (AUTOMATED)2019-08-23 11:58:00 Test Item Value Reference Range Interpretation Comments POCT GLU (test code = 105 mg/dL 70-110 Notifi ed Provider [id number]) Lab Interpretation (test Normal code = 60047-2) [facility] [id number] 11:01:00 Test Item Value Reference Range Interpretation Comments NT-proBNP (test code 7950 pg/mL See_Comment H [Autom ated = 0454213829) message] The system which generated this result transmitted reference range : <=125. The reference range was not used to interpret this result as normal/abnormal . JUAN LUIS (test code = JUAN LUIS) Biotin has been reported to cause a negative bias, interpret results relative to patient's use of biotin. Lab Interpretation Abnormal (test code = 57890-8) [facility] (NA, K, CL, CO2, GLUCOSE, BUN, CREATININE, CA)2019-08-23 10:52:00 Test Item Value Reference Range Interpretation Comments NA (test code = 135 mmol/L 135-145 2820127212) K (test code = 4.5 mmol/L 3.5-5 4731374384) CL (test code = 101 mmol/L 98-108 9593811891) CO2 TOTAL (test code = 29 mmol/L 23-31 0887529918) AGAP (test code = 2-16 8307922060) BUN (test code = 36 mg/dL 7-23 H 6685017094) GLUCOSE (test code = 57 mg/dL 70-110 L 2290908747) CREATININE (test code = 1.61 mg/dL 0.6-1.25 H 3802574191) CALCIUM (test code = 7.8 mg/dL 8.6-10.6 L 7648420820) eGFR Calculation mL/min/1.73m2 (Non-) (test code = 0531504519) eGFR Calculation mL/min/1.73m2 () (test code = 3987537394) JUAN LUIS (test code = JUAN LUIS) [...] tests). Lab Interpretation Abnormal (test code = 57025-2) [facility]-09 10:52:00 Test Item Value Reference Range Interpretation Comments MAGNESIUM (test code = 9061140482) 1.9 mg/dL 1.7-2.4 Lab Interpretation (test code = Normal 16382-0) [facility] WITH [id number] 10:48:00 Test Item Value Reference Range Interpretation Comments WBC (test code = See_Comment [Automated 7383-2) message] The sy stem which generated this result transmitted reference range : 4.20 - 10.70 10*3/?L. The reference range was not used to interpret this result as normal/abnormal . RBC (test code = See_Comment L [Automated 757-8) message] The sy stem which generated this [...] (test code = 34.9 fL 38.5-51.6 L 11971-8) RDW-CV (test code = 14.8 % 12.1-15.4 788-0) PLT (test code = See_Comment [Automated 777-3) message] The sy stem which generated this result transmitted reference range : 150 - 328 10*3/ ?L. The reference r christine was not used to interpret this result as normal/abnormal . MPV (test code = 11.8 fL 9.8-13 69362-8) IPF % (test code = 3.8 % 1.2-10.7 Platelet count 0626068738) measured by fluorescence method. NRBC/100 WBC (test See_Comment [Automat ed code = 1630850887) message] The system which generated this result transmitted reference range : 0.0 - 10.0 /100 WBCs. The refer ence range was not u sed to interpret th is result as normal/abnormal . NRBC x10^3 (test code <0.01 See_Comment [Auto mated = 0245580262) message] The s ystem which generated this result transmitted reference range : 10*3/?L. The reference range was not used to interpret this result as normal/abnormal . GRAN MAT (NEUT) % 70.8 % (test code = 770-8) IMM GRAN % (test code 0.30 % = 6044669050) LYMPH % (test code = 13.9 % 736-9) MONO % (test code = 10.9 % 5905-5) EOS % (test code = 3.7 % 713-8) BASO % (test code = 0.4 % 706-2) GRAN MAT x10^3(ANC) 6.76 10*3/uL 1.99-6.95 (test code = 4109310352) IMM GRAN x10^3 (test 0.03 10*3/uL 0-0.06 code = 8288236824) LYMPH x10^3 (test code 1.33 10*3/uL 1.09-3.23 = 731-0) MONO x10^3 (test code 1.04 10*3/uL 0.36-1.02 H = 742-7) EOS x10^3 (test code = 0.35 10*3/uL 0.06-0.53 711-2) BASO x10^3 (test code 0.04 10*3/uL 0.01-0.09 = 704-7) Lab Interpretation Abnormal (test code = 54514-6) [facility] GLUCOSE (AUTOMATED)2019-08-23 06:29:00 Test Item Value Reference Range Interpretation Comments POCT GLU (test code = 116 mg/dL 70-110 H Notifi ed Provider [id number]) Lab Interpretation (test Abnormal code = 63622-0) [facility] GLUCOSE (AUTOMATED)2019-08-23 01:54:00 Test Item Value Reference Range Interpretation Comments POCT GLU (test code = 135 mg/dL 70-110 H Notifi ed Provider [id number]) Lab Interpretation (test Abnormal code = 44839-8) [facility] GLUCOSE (AUTOMATED)2019-08-22 23:32:00 Test Item Value Reference Range Interpretation Comments POCT GLU (test code = 9500810084) 109 mg/dL 70-110 Lab Interpretation (test code = Normal 19912-4) [facility] / MSSA Screen by Britney MTZNrmmo9860-25-40 17:55:00 Test Item Value Reference Range Interpretation Comments MSSA Screen by Britney MTZ (test code Negative Negative = 96563-9) MRSA/MSSA Positive? (test code = No No [id number]) Lab Interpretation (test code = Normal 28501-4) [facility] GLUCOSE (AUTOMATED)2019-08-22 17:43:00 Test Item Value Reference Range Interpretation Comments POCT GLU (test code = 2097594205) 139 mg/dL 70-110 H Lab Interpretation (test code = Abnormal 17070-9) [facility] [id number] 16:53:00 Test Item Value Reference Range Interpretation Comments NT-proBNP (test code 34300 pg/mL See_Comment H [Autom ated = 2029033313) message] The system which generated this result transmitted reference range : <=125. The reference range was not used to interpret this result as normal/abnormal . JUAN LUIS (test code = JUAN LUIS) Biotin has been reported to cause a negative bias, interpret results relative to patient's use of biotin. Lab Interpretation Abnormal (test code = 79728-7) [facility] CHEST 1 [id number] 10:34:46Edema type pattern. CLINICAL HISTORY:SOB COMPARISON:None TECHNIQUE:Portable [...] zone. No pneumothorax. Possiblesmall effusions.IMPRESSIONEdema type pattern. [facility]CH[facility]PO[facility] ([facility])2019-08-22 10:03:00 Test Item Value Reference Range Interpretation Comments POCT GLU (test code = 118 mg/dL 70-110 H Notifi ed Provider [id number]) Lab Interpretation (test Abnormal code = 80565-5) [facility] (NA, K, CL, CO2, GLUCOSE, BUN, CREATININE, CA)2019-08-22 08:20:00 Test Item Value Reference Range Interpretation Comments NA (test code = 136 mmol/L 135-145 0395686730) K (test code = 4.8 mmol/L 3.5-5 1700091968) CL (test code = 102 mmol/L 98-108 4326018046) CO2 TOTAL (test code = 30 mmol/L 23-31 8964799469) AGAP (test code = 2-16 8113630363) BUN (test code = 34 mg/dL 7-23 H 4170133972) GLUCOSE (test code = 67 mg/dL 70-110 L 0498623732) CREATININE (test code = 1.37 mg/dL 0.6-1.25 H 6902097286) CALCIUM (test code = 8.4 mg/dL 8.6-10.6 L 1511819034) eGFR Calculation mL/min/1.73m2 (Non-) (test code = 0100192051) eGFR Calculation mL/min/1.73m2 () (test code = 0210920348) JUAN LUIS (test code = JUAN LUIS) [...] tests). Lab Interpretation Abnormal (test code = 74337-4) [facility] Test Item Value Reference Range Interpretation Comments MAGNESIUM (test code = 8705968217) 2.0 mg/dL 1.7-2.4 Lab Interpretation (test code = Normal 37888-6) [facility] WITH [id number] 08:11:00 Test Item Value Reference Range Interpretation [...] (test code = 35.3 fL 38.5-51.6 L 95988-2) RDW-CV (test code = 15.1 % 12.1-15.4 788-0) PLT (test code = See_Comment [Automated 777-3) message] The sy stem which generated this result transmitted reference range : 150 - 328 10*3/ ?L. The reference r christine was not used to interpret this result as normal/abnormal . MPV (test code = 11.5 fL 9.8-13 26215-2) IPF % (test code = 4.2 % 1.2-10.7 Platelet count 0690977536) measured by fluorescence method. NRBC/100 WBC (test See_Comment [Automat ed code = 7323013059) message] The system which generated this result transmitted reference range : 0.0 - 10.0 /100 WBCs. The refer ence range was not u sed to interpret th is result as normal/abnormal . NRBC x10^3 (test code <0.01 See_Comment [Auto mated = 9010452872) message] The s ystem which generated this result transmitted reference range : 10*3/?L. The reference range was not used to interpret this result as normal/abnormal . GRAN MAT (NEUT) % 68.5 % (test code = 770-8) IMM GRAN % (test code 0.40 % = 6275780856) LYMPH % (test code = 18.7 % 736-9) MONO % (test code = 8.8 % 5905-5) EOS % (test code = 3.0 % 713-8) BASO % (test code = 0.6 % 706-2) GRAN MAT x10^3(ANC) 5.42 10*3/uL 1.99-6.95 (test code = 2974665984) IMM GRAN x10^3 (test 0.03 10*3/uL 0-0.06 code = 2027644274) LYMPH x10^3 (test code 1.48 10*3/uL 1.09-3.23 = 731-0) MONO x10^3 (test code 0.70 10*3/uL 0.36-1.02 = 742-7) EOS x10^3 (test code = 0.24 10*3/uL 0.06-0.53 711-2) BASO x10^3 (test code 0.05 10*3/uL 0.01-0.09 = 704-7) Lab Interpretation Abnormal (test code = 28810-9) [facility] GLUCOSE (AUTOMATED)2019-08-22 06:25:00 Test Item Value Reference Range Interpretation Comments POCT GLU (test code = 253 mg/dL 70-110 H Notifi ed Provider [id number]) Lab Interpretation (test Abnormal code = 22358-6) [facility] GLUCOSE (AUTOMATED)2019-08-22 03:19:00 Test Item Value Reference Range Interpretation Comments POCT GLU (test code = 279 mg/dL 70-110 H Notifi ed Provider [id number]) Lab Interpretation (test Abnormal code = 47979-7) [facility] GLUCOSE (AUTOMATED)2019-08-21 22:45:00 Test Item Value Reference Range Interpretation Comments POCT GLU (test code = 7318372956) 231 mg/dL 70-110 H Lab Interpretation (test code = Abnormal 26586-6) [facility] GLUCOSE (AUTOMATED)2019-08-21 18:32:00 Test Item Value Reference Range Interpretation Comments POCT GLU (test code = 5804348723) 144 mg/dL 70-110 H Lab Interpretation (test code = Abnormal 98985-4) [facility] GLUCOSE (AUTOMATED)2019-08-21 13:56:00 Test Item Value Reference Range Interpretation Comments POCT GLU (test code = 5343895847) 123 mg/dL 70-110 H Lab Interpretation (test code = Abnormal 45861-1) [facility] GLUCOSE (AUTOMATED)2019-08-21 10:04:00 Test Item Value Reference Range Interpretation Comments POCT GLU (test code = 111 mg/dL 70-110 H Notifi ed Provider [id number]) Lab Interpretation (test Abnormal code = 36011-2) [facility] [id number] 08:37:00 Test Item Value Reference Range Interpretation Comments NT-proBNP (test code 87519 pg/mL See_Comment H [Autom ated = 0434746301) message] The system which generated this result transmitted reference range : <=125. The reference range was not used to interpret this result as normal/abnormal . JUAN LUIS (test code = JUAN LUIS) Biotin has been reported to cause a negative bias, interpret results relative to patient's use of biotin. Lab Interpretation Abnormal (test code = 15580-5) [facility] Metabolic Panel (NA, K, CL, CO2, GLUCOSE, BUN, CREATININE, CA)2019-08-21 08:28:00 Test Item Value Reference Range Interpretation Comments NA (test code = 136 mmol/L 135-145 2640558048) K (test code = 5.0 mmol/L 3.5-5 5627888154) CL (test code = 102 mmol/L 98-108 8897163837) CO2 TOTAL (test code = 30 mmol/L 23-31 4013886614) AGAP (test code = 2-16 6956276247) BUN (test code = 37 mg/dL 7-23 H 6883970682) GLUCOSE (test code = 88 mg/dL 70-110 6535163508) CREATININE (test code = 1.44 mg/dL 0.6-1.25 H 7339687228) CALCIUM (test code = 8.2 mg/dL 8.6-10.6 L 5993729922) eGFR Calculation mL/min/1.73m2 (Non-) (test code = 1623244030) eGFR Calculation mL/min/1.73m2 () (test code = 1228908891) JUAN LUIS (test code = JUAN LUIS) [...] tests). Lab Interpretation Abnormal (test code = 77249-8) [facility] WITH [id number] 08:17:00 Test Item Value Reference Range Interpretation Comments WBC (test code = See_Comment [Automated 4290-2) message] The sy stem which generated this [...] (test code = 35.3 fL 38.5-51.6 L 61770-8) RDW-CV (test code = 15.2 % 12.1-15.4 788-0) PLT (test code = See_Comment [Automated 777-3) message] The sy stem which generated this result transmitted reference range : 150 - 328 10*3/ ?L. The reference r christine was not used to interpret this result as normal/abnormal . MPV (test code = 12.2 fL 9.8-13 96007-3) IPF % (test code = 4.9 % 1.2-10.7 Platelet count 2508156548) measured by fluorescence method. NRBC/100 WBC (test See_Comment [Automat ed code = 2481653037) message] The system which generated this result transmitted reference range : 0.0 - 10.0 /100 WBCs. The refer ence range was not u sed to interpret th is result as normal/abnormal . NRBC x10^3 (test code <0.01 See_Comment [Auto mated = 8251751282) message] The s ystem which generated this result transmitted reference range : 10*3/?L. The reference range was not used to interpret this result as normal/abnormal . GRAN MAT (NEUT) % 78.7 % (test code = 770-8) IMM GRAN % (test code 0.40 % = 4467478538) LYMPH % (test code = 11.4 % 736-9) MONO % (test code = 8.1 % 5905-5) EOS % (test code = 0.9 % 713-8) BASO % (test code = 0.5 % 706-2) GRAN MAT x10^3(ANC) 8.31 10*3/uL 1.99-6.95 H (test code = 5858407316) IMM GRAN x10^3 (test 0.04 10*3/uL 0-0.06 code = 6495274441) LYMPH x10^3 (test code 1.20 10*3/uL 1.09-3.23 = 731-0) MONO x10^3 (test code 0.85 10*3/uL 0.36-1.02 = 742-7) EOS x10^3 (test code = 0.09 10*3/uL 0.06-0.53 711-2) BASO x10^3 (test code 0.05 10*3/uL 0.01-0.09 = 704-7) Lab Interpretation Abnormal (test code = 57181-9) [facility] GLUCOSE (AUTOMATED)2019-08-21 05:13:00 Test Item Value Reference Range Interpretation Comments POCT GLU (test code = 7615101680) 87 mg/dL 70-110 Lab Interpretation (test code = Normal 78883-8) [facility] GLUCOSE (AUTOMATED)2019-08-21 03:29:00 Test Item Value Reference Range Interpretation Comments POCT GLU (test code = 65 mg/dL 70-110 L Notifi ed Provider [id number]) Lab Interpretation (test Abnormal code = 74055-8) [facility] GLUCOSE (AUTOMATED)2019-08-20 22:42:00 Test Item Value Reference Range Interpretation Comments POCT GLU (test code = 1317794137) 102 mg/dL 70-110 Lab Interpretation (test code = Normal 76798-1) [facility], [id number] 22:11:00 Test Item Value Reference Range Interpretation Comments VIT D 25OH (test code = <13 25-80 L 92035-2) JUAN LUIS (test code = JUAN LUIS) Deficiency: <20 ng/mLInsufficiency: 20-24 ng/mLOptimal: 25-80 ng/mL Lab Interpretation (test Abnormal code = 99772-1) [facility] GLUCOSE (AUTOMATED)2019-08-20 17:49:00 Test Item Value Reference Range Interpretation Comments POCT GLU (test code = 0643302844) 112 mg/dL 70-110 H Lab Interpretation (test code = Abnormal 07555-1) [facility] GLUCOSE (AUTOMATED)2019-08-20 14:23:00 Test Item Value Reference Range Interpretation Comments POCT GLU (test code = 1500265790) 122 mg/dL 70-110 H Lab Interpretation (test code = Abnormal 31743-1) [facility]udaTROPON[facility] [id number] 11:09:00 Test Item Value Reference Range Interpretation Comments TROPONIN I (test 0.032 ng/mL See_Comment [Automated code = 3717396036) message] The system which generated this result [...] ? Lab Interpretation Normal (test code = 80858-3) [facility]uda[facility]-TERMINAL [id number] 11:06:00 Test Item Value Reference Range Interpretation Comments NT-proBNP (test code 86019 pg/mL See_Comment H [Autom ated = 0711387369) message] The system which generated this result transmitted reference range : <=125. The reference range was not used to interpret this result as normal/abnormal . JUAN LUIS (test code = JUAN LUIS) Biotin has been reported to cause a negative bias, interpret results relative to patient's use of biotin. Lab Interpretation Abnormal (test code = 80466-3) [facility]udaURIC [id number] 10:58:00 Test Item Value Reference Range Interpretation Comments URIC ACID (test code = 4268343201) 5.7 mg/dL 3.6-8 Lab Interpretation (test code = Normal 96614-6) [facility] (NA, K, CL, CO2, GLUCOSE, BUN, CREATININE, CA)2019-08-20 10:58:00 Test Item Value Reference Range Interpretation Comments NA (test code = 136 mmol/L 135-145 7365125299) K (test code = 4.0 mmol/L 3.5-5 6775372721) CL (test code = 106 mmol/L 98-108 7206557071) CO2 TOTAL (test code = 27 mmol/L 23-31 5601591331) AGAP (test code = 2-16 4164883048) BUN (test code = 35 mg/dL 7-23 H 0331996507) GLUCOSE (test code = 149 mg/dL 70-110 H 4143892677) CREATININE (test code = 1.46 mg/dL 0.6-1.25 H 3228554286) CALCIUM (test code = 8.5 mg/dL 8.6-10.6 L 3772388795) eGFR Calculation mL/min/1.73m2 (Non-) (test code = 7672453347) eGFR Calculation mL/min/1.73m2 () (test code = 7646852942) JUAN LUIS (test code = JUAN LUIS) [...] tests). Lab Interpretation Abnormal (test code = 76101-8) [facility] WITH [id number] 10:46:00 Test Item Value Reference Range Interpretation Comments WBC (test code = See_Comment [Automated 5290-2) message] The sy stem which generated this result transmitted reference range : 4.20 - 10.70 10*3/?L. The reference range was not used to interpret this result as normal/abnormal . RBC (test code = See_Comment L [Automated 139-8) message] The sy stem which generated this [...] (test code = 34.4 fL 38.5-51.6 L 91469-8) RDW-CV (test code = 15.2 % 12.1-15.4 788-0) PLT (test code = See_Comment [Automated 777-3) message] The sy stem which generated this result transmitted reference range : 150 - 328 10*3/ ?L. The reference r christine was not used to interpret this result as normal/abnormal . MPV (test code = Not Measure d 17646-2) IPF % (test code = 6.1 % 1.2-10.7 Platelet count 2655927783) measured by fluorescence method. NRBC/100 WBC (test See_Comment [Automat ed code = 2020767758) message] The system which generated this result transmitted reference range : 0.0 - 10.0 /100 WBCs. The refer ence range was not u sed to interpret th is result as normal/abnormal . NRBC x10^3 (test code <0.01 See_Comment [Auto mated = 5051189393) message] The s ystem which generated this result transmitted reference range : 10*3/?L. The reference range was not used to interpret this result as normal/abnormal . GRAN MAT (NEUT) % 66.8 % (test code = 770-8) IMM GRAN % (test code 0.30 % = 2642799498) LYMPH % (test code = 20.3 % 736-9) MONO % (test code = 9.9 % 5905-5) EOS % (test code = 2.3 % 713-8) BASO % (test code = 0.4 % 706-2) GRAN MAT x10^3(ANC) 6.15 10*3/uL 1.99-6.95 (test code = 6219039020) IMM GRAN x10^3 (test 0.03 10*3/uL 0-0.06 code = 8014838140) LYMPH x10^3 (test code 1.87 10*3/uL 1.09-3.23 = 731-0) MONO x10^3 (test code 0.91 10*3/uL 0.36-1.02 = 742-7) EOS x10^3 (test code = 0.21 10*3/uL 0.06-0.53 711-2) BASO x10^3 (test code 0.04 10*3/uL 0.01-0.09 = 704-7) Lab Interpretation Abnormal (test code = 47207-2) [facility]uda[facility] B12, [id number] 08:51:00 Test Item Value Reference Range Interpretation Comments VIT B12 (test code = 409 pg/mL 240-930 7127434641) JUAN LUIS (test code = JUAN LUIS) Biotin has been reported to cause a positive bias, interpret results relative to patient's use of biotin. Lab Interpretation (test Normal code = 84555-4) [id number] 08:51:00 Test Item Value Reference Range Interpretation Comments FOLATE SER (test code = 11.7 ng/mL 3-20 2204916406) Lab Interpretation (test code = Normal 16432-3) [facility]udaPOLA GLUCOSE (AUTOMATED)2019-08-20 05:51:00 Test Item Value Reference Range Interpretation Comments POCT GLU (test code = 0702861464) 239 mg/dL 70-110 H Lab Interpretation (test code = Abnormal 52959-1) [facility] GLUCOSE (AUTOMATED)2019-08-20 02:49:00 Test Item Value Reference Range Interpretation Comments POCT GLU (test code = 1969223542) 261 mg/dL 70-110 H Lab Interpretation (test code = Abnormal 82946-9) [facility] BudaIRON [id number] 23:44:00 Test Item Value Reference Range Interpretation Comments IRON (test code = 64 ug/dL 50-160 Slight hem olysis 5430113340) TIBC (test code = 225 ug/dL 250-410 L 0237033408) % FE SAT (test code = 28 % 20-50 7035030671) Lab Interpretation (test Abnormal code = 01424-8) [facility] BudaTroponin [id number] 23:42:00 Test Item Value Reference Range Interpretation Comments TROPONIN I (test 0.039 ng/mL See_Comment H [Automated code = 7768025315) message] The system which generated this result [...] ? Lab Interpretation Abnormal (test code = 44890-5) [facility] BudaFERRITIN [id number] 23:37:00 Test Item Value Reference Range Interpretation Comments FERRITIN (test code = 744.0 ng/mL 18-464 H 1212489931) JUAN LUIS (test code = JUAN LUIS) Biotin has been reported to cause a negative bias, interpret results relative to patient's use of biotin. Lab Interpretation (test Abnormal code = 17221-5) [facility] GLUCOSE (AUTOMATED)2019-08-19 21:51:00 Test Item Value Reference Range Interpretation Comments POCT GLU (test code = 1767587081) 235 mg/dL 70-110 H Lab Interpretation (test code = Abnormal 60113-8) [facility] GLUCOSE (AUTOMATED)2019-08-19 17:19:00 Test Item Value Reference Range Interpretation Comments POCT GLU (test code = 1106933859) 283 mg/dL 70-110 H Lab Interpretation (test code = Abnormal 91889-6) [facility] GLUCOSE (AUTOMATED)2019-08-19 13:57:00 Test Item Value Reference Range Interpretation Comments POCT GLU (test code = 5226942404) 165 mg/dL 70-110 H Lab Interpretation (test code = Abnormal 95835-3) [facility]udaTROPONIN [id number] 11:05:00 Test Item Value Reference Range Interpretation Comments TROPONIN I (test 0.045 ng/mL See_Comment H [Automated code = 4030173087) message] The system which generated this result [...] ? Lab Interpretation Abnormal (test code = 36305-3) [facility] BudaJosyanders [id number] 11:04:00 Test Item Value Reference Range Interpretation Comments TROPONIN I (test 0.046 ng/mL See_Comment H [Automated code = 8939286440) message] The system which generated this result [...] ? Lab Interpretation Abnormal (test code = 81608-8) [facility]udaN-TERMINAL [id number] 11:02:00 Test Item Value Reference Range Interpretation Comments NT-proBNP (test code 76342 pg/mL See_Comment H [Autom ated = 3654120328) message] The system which generated this result transmitted reference range : <=125. The reference range was not used to interpret this result as normal/abnormal . JUAN LUIS (test code = JUAN LUIS) Biotin has been reported to cause a negative bias, interpret results relative to patient's use of biotin. Lab Interpretation Abnormal (test code = 04752-3) [facility] BudaBasi Metabolic Panel (NA, K, CL, CO2, GLUCOSE, BUN, CREATININE, CA)2019-08-19 11:00:00 Test Item Value Reference Range Interpretation Comments NA (test code = 138 mmol/L 135-145 9741225026) K (test code = 3.1 mmol/L 3.5-5 L 5087110859) CL (test code = 106 mmol/L 98-108 6585961548) CO2 TOTAL (test code = 26 mmol/L 23-31 9024007281) AGAP (test code = 2-16 9854524417) BUN (test code = 31 mg/dL 7-23 H 1622638279) GLUCOSE (test code = 61 mg/dL 70-110 L 5908696422) CREATININE (test code = 1.28 mg/dL 0.6-1.25 H 4563824243) CALCIUM (test code = 9.2 mg/dL 8.6-10.6 6621774541) eGFR Calculation mL/min/1.73m2 (Non-) (test code = 5768679880) eGFR Calculation mL/min/1.73m2 () (test code = 5193882942) JUAN LUIS (test code = JUAN LUIS) [...] tests). Lab Interpretation Abnormal (test code = 80517-8) [facility]udaURIC [id number] 10:53:00 Test Item Value Reference Range Interpretation Comments URIC ACID (test code = 7108084371) 5.3 mg/dL 3.6-8 Lab Interpretation (test code = Normal 89800-2) [facility] BudaMAGNESIUM2020-02-05 10:53:00 Test Item Value Reference Range Interpretation Comments MAGNESIUM (test code = 1056450626) 2.3 mg/dL 1.7-2.4 Lab Interpretation (test code = Normal 74834-2) [facility] BudaPHOSPHORUS2020-02-05 10:53:00 Test Item Value Reference Range Interpretation Comments PHOSPHORUS (test code = 4380058514) 3.3 mg/dL 2.5-5 Lab Interpretation (test code = Normal 76218-2) [facility] WITH [id number] 10:30:00 Test Item Value Reference Range Interpretation [...] (test code = 34.7 fL 38.5-51.6 L 19333-7) RDW-CV (test code = 15.2 % 12.1-15.4 788-0) PLT (test code = See_Comment [Automated 777-3) message] The sy stem which generated this result transmitted reference range : 150 - 328 10*3/ ?L. The reference r christine was not used to interpret this result as normal/abnormal . MPV (test code = Not Measure d 45782-1) IPF % (test code = 6.8 % 1.2-10.7 Platelet count 7238275699) measured by fluorescence method. NRBC/100 WBC (test See_Comment [Automat ed code = 6520739833) message] The system which generated this result transmitted reference range : 0.0 - 10.0 /100 WBCs. The refer ence range was not u sed to interpret th is result as normal/abnormal . NRBC x10^3 (test code <0.01 See_Comment [Auto mated = 4564614133) message] The s ystem which generated this result transmitted reference range : 10*3/?L. The reference range was not used to interpret this result as normal/abnormal . GRAN MAT (NEUT) % 60.5 % (test code = 770-8) IMM GRAN % (test code 0.30 % = 3532691963) LYMPH % (test code = 26.2 % 736-9) MONO % (test code = 9.8 % 5905-5) EOS % (test code = 2.6 % 713-8) BASO % (test code = 0.6 % 706-2) GRAN MAT x10^3(ANC) 6.61 10*3/uL 1.99-6.95 (test code = 7170724698) IMM GRAN x10^3 (test 0.03 10*3/uL 0-0.06 code = 5162598950) LYMPH x10^3 (test code 2.86 10*3/uL 1.09-3.23 = 731-0) MONO x10^3 (test code 1.07 10*3/uL 0.36-1.02 H = 742-7) EOS x10^3 (test code = 0.28 10*3/uL 0.06-0.53 711-2) BASO x10^3 (test code 0.07 10*3/uL 0.01-0.09 = 704-7) Lab Interpretation Abnormal (test code = 12812-9) [facility] GLUCOSE (AUTOMATED)2019-08-19 10:02:00 Test Item Value Reference Range Interpretation Comments POCT GLU (test code = 3346467831) 81 mg/dL 70-110 Lab Interpretation (test code = Normal 44322-1) [facility] GLUCOSE (AUTOMATED)2019-08-19 04:46:00 Test Item Value Reference Range Interpretation Comments POCT GLU (test code = 3697625151) 325 mg/dL 70-110 H Lab Interpretation (test code = Abnormal 96044-6) [facility]udaURIC [id number] 04:45:00 Test Item Value Reference Range Interpretation Comments URIC ACID (test code = 3043303949) 5.2 mg/dL 3.6-8 Lab Interpretation (test code = Normal 29532-1) [facility] BudaTroponin [id number] 04:08:00 Test Item Value Reference Range Interpretation Comments TROPONIN I (test 0.026 ng/mL See_Comment [Automated code = 3733357509) message] The system which generated this result [...] ? Lab Interpretation Normal (test code = 83020-9) [facility] BudaLipid Panel (Total Cholesterol, Triglycerides, HDL)2019-08-19 03:55:00 Test Item Value Reference Range Interpretation Comments CHOL (test code = 196 mg/dL 120-200 6515348336) HDL (test code = 36 mg/dL >40 L 7155798936) HDLC RATIO (test code = See_Comment H [Au tomated message] 5631040337) The system [employer] generated this result transmit tennille reference range : <=5.0. The refe rence range was not u sed to interpret th is result as normal/abnormal . TRIG (test code = 131 mg/dL 30-170 2615361829) LDL CHOL (test code = 134 mg/dL See_Comment [Auto mated message] 57991-1) The system [employer] generated this result transmit tennille reference range : <=160. The refe rence range was not u sed to interpret th is result as normal/abnormal . VLDL (test code = 26 mg/dL 5-60 4078192788) Lab Interpretation (test Abnormal code = 73713-4) [facility]udaPOCT GLUCOSE (AUTOMATED)2019-08-19 01:40:00 Test Item Value Reference Range Interpretation Comments POCT GLU (test code = 2787782100) 381 mg/dL 70-110 H Lab Interpretation (test code = Abnormal 01631-9) [facility] BudaThyroid Stimulating Hormone (TSH)2019-08-19 00:12:00 Test Item Value Reference Range Interpretation Comments TSH (test code = See_Comment Biotin has been 0575846940) reported to cau se a negative bias, interpret resul ts relative to carla centeno's use of biotin. [Automated mess age] The system [employer] generated this result transmitted ref erence range: 0.45 - 4 .70 mIU/L. The refe rence range was not u sed to interpret this result as normal/abnor mal. Lab Interpretation (test Normal code = 09630-3) [facility] BudaGlycosylated Hemoglobin (A1C)2019-08-19 00:11:00 Test Item Value Reference [...] Indicated Lab Interpretation Abnormal (test code = 86769-2) [facility] BudaLipid Panel (Total Cholesterol, Triglycerides, HDL) - [id number] 23:40:00 Test Item Value Reference Range Interpretation Comments CHOL (test code = 199 mg/dL 120-200 5615902404) HDL (test code = 36 mg/dL >40 L 1252077561) HDLC RATIO (test code = See_Comment H [Au tomated message] 6051898134) The system [employer] generated this result transmit tennille reference range : <=5.0. The refe rence range was not u sed to interpret th is result as normal/abnormal . TRIG (test code = 146 mg/dL 30-170 2002594941) LDL CHOL (test code = 134 mg/dL See_Comment [Auto mated message] 44483-3) The system [employer] generated this result transmit tennille reference range : <=160. The refe rence range was not u sed to interpret th is result as normal/abnormal . VLDL (test code = 29 mg/dL 5-60 4135329993) Lab Interpretation (test Abnormal code = 11839-2) [facility]udaPOCT GLU[facility]SE (AUTOMATED)2019-08-18 23:33:00 Test Item Value Reference Range Interpretation Comments POCT GLU (test code = 1513889261) 424 mg/dL 70-110 H Lab Interpretation (test code = Abnormal 67521-5) [facility] BudaN-TERMINAL [id number] 21:57:00 Test Item Value Reference Range Interpretation Comments NT-proBNP (test code 52579 pg/mL See_Comment H [Autom ated = 2445175612) message] The system which generated this result transmitted reference range : <=125. The reference range was not used to interpret this result as normal/abnormal . JUAN LUIS (test code = JUAN LUIS) Biotin has been reported to cause a negative bias, interpret results relative to patient's use of biotin. Lab Interpretation Abnormal (test code = 82599-8) [facility] BudaaPTT2020-02-04 21:26:00 Test Item Value Reference Range Interpretation Comments APTT Patient (test See_Comment [Automat ed code = 3173-2) message] The system which generated this result transmitted reference range : 23 - 38 Seconds . The reference range was not used to interpr et this result as normal/abnormal . JUAN LUIS (test code = JUAN LUIS) The [facility] patient population mean normal value for aPTT is 30 seconds. Lab Interpretation Normal (test code = 97019-5) [facility] BudaPROTHROMBIN TIME / [id number] 21:24:00 Test Item Value Reference Range Interpretation [...] tions. Lab Interpretation (test Normal code = 73461-0) [facility] [id number] 21:14:00 Test Item Value Reference Range Interpretation Comments TROPONIN I (test 0.023 ng/mL See_Comment [Automated code = 2377261896) message] The system which generated this result [...] ? Lab Interpretation Normal (test code = 94908-7) [facility] 2 [id number] 21:02:07HISTORY: ?Chest pain. TECHNIQUE: PA and lateral [...] in the lower lungs with small bilateralpleural effusion.[facility]. METABOLIC PANEL (01042)2019-08-18 21:02:00 Test Item Value Reference Range Interpretation Comments NA (test code = 134 mmol/L 135-145 L 4866795797) K (test code = 3.8 mmol/L 3.5-5 1385624239) CL (test code = 103 mmol/L 98-108 7475251966) CO2 TOTAL (test code = 25 mmol/L 23-31 5397059824) AGAP (test code = 2-16 1808199718) BUN (test code = 29 mg/dL 7-23 H 5648430900) GLUCOSE (test code = 384 mg/dL 70-110 H 8366972318) CREATININE (test code = 1.14 mg/dL 0.6-1.25 7309693931) TOTAL BILI (test code = 0.3 mg/dL 0.1-1.3 8126651399) CALCIUM (test code = 8.7 mg/dL 8.6-10.6 6247247694) T PROTEIN (test code = 6.1 g/dL 6.3-8.2 L 2922923971) ALBUMIN (test code = 3.3 g/dL 3.5-5 L 2042244865) ALK PHOS (test code = 84 U/L 34-122 3364956691) ALTv (test code = 11 U/L 5-50 1742-6) AST(SGOT) (test code = 18 U/L 13-40 9123252224) eGFR Calculation mL/min/1.73m2 (Non-) (test code = 9345754015) eGFR Calculation mL/min/1.73m2 () (test code = 8731704870) JUAN LUIS (test code = JUAN LUIS) [...] tests). Lab Interpretation Abnormal (test code = 08589-9) [facility] BudaLIPASE, [id number] 21:02:00 Test Item Value Reference Range Interpretation Comments LIPASE (test code = 8837238796) 82 U/L 0-220 Lab Interpretation (test code = Normal 95761-9) [facility] BudaCB WITH [id number] 21:00:00 Test Item Value Reference Range Interpretation Comments WBC (test code = See_Comment [Automated 1304-2) message] The sy stem which generated this result transmitted reference range : 4.20 - 10.70 10*3/?L. The reference range was not used to interpret this result as normal/abnormal . RBC (test code = See_Comment [Automated 061-6) message] The sy stem which generated this [...] (test code = 35.4 fL 38.5-51.6 L 40617-8) RDW-CV (test code = 15.3 % 12.1-15.4 788-0) PLT (test code = See_Comment [Automated 777-3) message] The sy stem which generated this result transmitted reference range : 150 - 328 10*3/ ?L. The reference r christine was not used to interpret this result as normal/abnormal . MPV (test code = Not Measure d 69839-3) NRBC/100 WBC (test See_Comment [Automat ed code = 8911968509) message] The system which generated this result transmitted reference range : 0.0 - 10.0 /100 WBCs. The refer ence range was not u sed to interpret th is result as normal/abnormal . NRBC x10^3 (test code <0.01 See_Comment [Auto mated = 5539465643) message] The s ystem which generated this result transmitted reference range : 10*3/?L. The reference range was not used to interpret this result as normal/abnormal . GRAN MAT (NEUT) % 72.4 % (test code = 770-8) IMM GRAN % (test code 0.40 % = 8313687874) LYMPH % (test code = 16.5 % 736-9) MONO % (test code = 7.6 % 5905-5) EOS % (test code = 2.6 % 713-8) BASO % (test code = 0.5 % 706-2) GRAN MAT x10^3(ANC) 6.03 10*3/uL 1.99-6.95 (test code = 7816102678) IMM GRAN x10^3 (test 0.03 10*3/uL 0-0.06 code = 2014296491) LYMPH x10^3 (test code 1.37 10*3/uL 1.09-3.23 = 731-0) MONO x10^3 (test code 0.63 10*3/uL 0.36-1.02 = 742-7) EOS x10^3 (test code = 0.22 10*3/uL 0.06-0.53 711-2) BASO x10^3 (test code 0.04 10*3/uL 0.01-0.09 = 704-7) Lab Interpretation Abnormal (test code = 21102-5) [facility]"
--- NOTE | 2021-06-10 11:19 | RAD REPORT ---
EXAM DESCRIPTION: CTStone Protocol - 06/10/2021 11:01 am CLINICAL HISTORY: FLANK PAIN COMPARISON: Abdomen Pelvis Wo Contrast dated 04/12/2021; Abdomen Pelvis Wo Contrast dated ; Abdomen Pelvis W Contrast dated 12/01/2020; Abdomen Pelvis Wo Contrast dated 11/23/2020 TECHNIQUE: CT of the abdomen and pelvis was performed. All CT scans are performed using dose optimization technique as appropriate and may include automated exposure control or mA/KV adjustment according to patient size. FINDINGS: Lower chest: Small bilateral effusions and underlying atelectasis. Coronary artery calcifi cations and/or stents. Sternotomy. Liver: No acute abnormality or suspicious lesions. Biliary: Cholelithiasis. Stomach: Gastrostomy tube . Duodenum: No significant focal abnormality. Pancreas: No significant abnormality. Spleen: No significant abnormality. Adrenal: No suspicious lesions. Adrenal thickening. Kidney/ureter: No hydronephrosis. No renal calculi. Retroperitoneum: No retroperitoneal adenopathy. Vascular: No aneurysm. Atherosclerosis. Bowel: No significant focal abnormality. Peritoneum: Small volume of ascites. Bladder: The bladder is decompressed via Holcomb catheter. Reproductive: No adnexal masses. Bones: No acute fracture. Left hip arthroplasty. Chronic L1 and L4 compression fractures. Other: n/a IMPRESSION: No acute intra-abdominal or pelvic finding. Anasarca with bilateral effusions, ascites, and body wall edema. Additional unchanged incidental findings as noted above.
--- NOTE | 2021-06-10 11:21 | RAD REPORT ---
EXAM DESCRIPTION: RAD - Chest Single View - 06/10/2021 10:55 am CLINICAL HISTORY: COUGH COMPARISON: Chest Single View dated 06/01/2021; Chest Single View dated 04/12/2021; Chest Single View dated 04/10/2021; Chest Single View dated 04/09/2021; Abdomen Pelvis Wo Contrast dated 04/12/2021 FINDINGS: Lines: None. Lungs: Similar mild pulmonary edema. Similar more confluent airspace disease in the medial aspect of the right lung base. Pleural: Probable small effusions. Cardiac: Cardiomegaly. Sternotomy. Bones: No acute fractures. Other: IMPRESSION: Similar aeration lungs with edema and mild consolidative opacities in the medial aspect of the right lung base. A chest CT is pending.
--- NOTE | 2021-06-10 11:31 | RAD REPORT ---
EXAM DESCRIPTION: CT - Thorax Wo Con - 06/10/2021 11:07 am CLINICAL HISTORY: SOB COMPARISON: Chest Abd Pelvis Wo Con dated 04/02/2021; Chest Abd Pelvis Wo Con dated 10/22/2020; Chest Abd Pelvis Wo Con dated 05/18/2020; Chest For Pe Angio dated 04/30/2019 FINDINGS: Chest Wall: No suspicious thyroid nodules or pathologic lymphadenopathy. Lungs: Atelectasis as a result of the pleural effusions. Interlobular septal thickening in the lung b ases which is mild. Pleura: Small pleural effusions bilaterally. Mediastinum/tiffany: No pathologic lymphadenopathy. Pulmonary arteries/Aorta: Limited evaluation without contrast. No aortic aneurysm. Heart: Mild cardiomegaly . Multi-vessel coronary artery disease. No pericardial effusion. Upper abdomen: No acute abnormality. Bones: No acute abnormality. Remote L1 compression fracture. All CT scans are performed using dose optimization technique as appropriate and may include automated exposure control or mA/KV adjustment according to patient size. IMPRESSION: Small bilateral effusions and most likely associated atelectasis. Mild edema noted. Pneu monia considered unlikely.
[2021-06-10 11:54] LABS: Absolute Lymphocytes (CBC) 0.9 K/uL (0.7-4.9); Basophils % 0.9 % (0-1.3); Hematocrit 22.2 % (39.6-49.0); Lymphocytes % 10.8 % (15.3-44.8); MPV 9.9 fL (7.6-11.3); RBC Red Blood Cell Count 3.24 M/uL (4.33-5.43)
[2021-06-10 11:58] LABS: Protime INR 1.09
--- NOTE | 2021-06-10 12:07 | EDPHYS ---
Physician Documentation [facility] Name: Mumtaz Anderson Age: 66 yrs Sex: Male : 1955 Arrival Date: 06/10/2021 Time: 10:03 Bed 6 Private MD: ED Physician Homer Dang HPI: 06/10 10:26 This 66 yrs old Male presents to ER via EMS with complaints of Blood In stanley Catheter. 10:26 The patient presents with urinary symptoms, retention, HAS HAYNES. Onset: The tsanley symptoms/episode began/occurred 1 day(s) ago. Modifying factors: The symptoms are alleviated by remaining still, the symptoms are aggravated by movement. WEAK AND PALE, HGB 7.8. Associated signs and symptoms: Pertinent positives: hematuria. Severity of symptoms: At their worst the symptoms were moderate, in the emergency department the symptoms are unchanged. Severity of symptoms: At their worst the symptoms were moderate in the emergency department the symptoms are unchanged. The patient has not experienced similar symptoms in the past. Historical: - Allergies: 10:20 anextuss; bp 10:20 Latex, Natural Rubber; bp 10:20 spironolactone; bp - PMHx: 10:20 Anemia; CAD; Cerebrovascular accident; CHF; COPD; Diabetes - IDDM; bp Hypercholesterolemia; Hypertension; kidney disease; Seizures; Pneumonia; Myocardial infarction; Parkinsons; - PSHx: 10:20 PEG tube; Coronary artery bypass graft; hip; knee; bp - Immunization history:: Adult Immunizations unknown. - Social history:: Smoking status: unknown. - Family history:: not pertinent. ROS: 10:26 Constitutional: Negative for fever, chills, and weight loss, Eyes: Negative for injury, stanley pain, redness, and discharge, ENT: Negative for injury, pain, and discharge, Neck: Negative for injury, pain, and swelling, Cardiovascular: Negative for chest pain, palpitations, and edema, Abdomen/GI: Negative for abdominal pain, nausea, vomiting, diarrhea, and constipation, Back: Negative for injury and pain, MS/Extremity: Negative for injury and deformity, Neuro: Negative for headache, weakness, numbness, tingling, and seizure, Psych: Negative for depression, anxiety, suicide ideation, homicidal ideation, and hallucinations, Allergy/Immunology: Negative for hives, rash, and allergies, Endocrine: Negative for neck swelling, polydipsia, polyuria, polyphagia, and marked weight changes. 10:26 Respiratory: Positive for shortness of breath, at rest. 10:26 : Positive for hematuria. 10:26 Skin: Positive for pallor. 10:26 Neuro: Positive for weakness. Exam: 10:30 Constitutional: This is a well developed, well nourished patient who is awake, alert, stanley and in no acute distress. Head/Face: Normocephalic, atraumatic. Eyes: Pupils equal round and reactive to light, extra-ocular motions intact. Lids and lashes normal. Conjunctiva and sclera are non-icteric and not injected. Cornea within normal limits. Periorbital areas with no swelling, redness, or edema. ENT: Nares patent. No nasal discharge, no septal abnormalities noted. Tympanic membranes are normal and external auditory canals are clear. Oropharynx with no redness, swelling, or masses, exudates, or evidence of obstruction, uvula midline. Mucous membranes moist. Neck: Trachea midline, no thyromegaly or masses palpated, and no cervical lymphadenopathy. Supple, full range of motion without nuchal rigidity, or vertebral point tenderness. No Meningismus. Chest/axilla: Normal chest wall appearance and motion. Nontender with no deformity. No lesions are appreciated. Cardiovascular: Regular rate and rhythm with a normal S1 and S2. No gallops, murmurs, or rubs. Normal PMI, no JVD. No pulse deficits. Respiratory: Lungs have equal breath sounds bilaterally, clear to auscultation and percussion. No rales, rhonchi or wheezes noted. No increased work of breathing, no retractions or nasal flaring. Back: No spinal tenderness. No costovertebral tenderness. Full range of motion. Male : Normal genitalia with no discharge or lesions. MS/ Extremity: Pulses equal, no cyanosis. Neurovascular intact. Full, normal range of motion. Neuro: Awake and alert, GCS 15, oriented to person, place, time, and situation. Cranial nerves II-XII grossly intact. Motor strength 5/5 in all extremities. Sensory grossly intact. Cerebellar exam normal. Normal gait. Psych: Awake, alert, with orientation to person, place and time. Behavior, mood, and affect are within normal limits. 10:30 Abdomen/GI: Inspection: abdomen appears normal, Bowel sounds: normal, Palpation: soft, Liver: no appreciated palpable abnormalities, Hernia: not appreciated. 10:30 : CVA tenderness, on the left, Male external genitalia: normal, WITH HAYNES, Bladder: is normal, Sexual behavior: the patient is not sexually active. 13:43 ECG was reviewed by the Attending Physician. [facility] Vital Signs: 10:06 BP 160 / 61; Pulse 58; Temp 98.0; Pulse Ox 100% ; Weight 63.5 kg; Height 6 ft. (182.88 tp1 cm); 10:18 BP 160 / 61; Pulse 58; Resp 17; Temp 98; Pulse Ox 100% on R/A; Weight 63.5 kg; Height 6 bp ft. (182.88 cm); 13:39 BP 145 / 60; Pulse 61; Resp 16; Temp 98.8; Pulse Ox 100% on R/A; bp 17:53 BP 150 / 71; Pulse 65; Resp 16; Temp 99.3; Pulse Ox 100% on R/A; kd3 10:18 Body Mass Index 18.99 (63.50 kg, 182.88 cm) bp MDM: 10:05 Patient medically screened. [facility] 10:31 Differential diagnosis: UTI, urinary retention, Haynes catheter problem. Data reviewed: [facility] vital signs, nurses notes, lab test result(s), EKG, radiologic studies, CT scan, plain films. Data interpreted: shelter monitor: rate is 58 beats/min, rhythm is regular, Pulse oximetry: on room air is 100 %. Test interpretation: by ED physician or midlevel provider: ECG, plain radiologic studies. 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 06/10 10:25 Order name: Basic Metabolic Panel [facility] 06/10 10:25 Order name: CBC with Diff [facility] 06/10 10:25 Order name: LFT's [facility] 06/10 10:25 Order name: Magnesium [facility] 06/10 10:25 Order name: NT PRO-BNP [facility] 06/10 10:25 Order name: PT-INR [facility] 06/10 10:25 Order name: Troponin (emerg Dept Use Only) [facility] 06/10 10:25 Order name: Type And Screen [facility] 06/10 10:25 Order name: Lipase [facility] 06/10 10:25 Order name: Urine Culture [facility] 06/10 10:25 Order name: SARS-COV-2 RT PCR (Document "Date of Onset" if Symptomatic) [facility] 06/10 11:55 Order name: CBC Smear Scan [facility] 06/10 12:18 Order name: Basic Metabolic Panel [facility] 06/10 12:18 Order name: Basic Metabolic Panel [facility] 06/10 10:25 Order name: XRAY Chest (1 view); Complete Time: 11:36 [facility] 06/10 10:25 Order name: EKG; Complete Time: 10:26 [facility] 06/10 10:25 Order name: CT Stone Protocol; Complete Time: 11:36 [facility] 06/10 11:03 Order name: Thorax Wo Con; Complete Time: 11:36 [facility] 06/10 12:18 Order name: CBC with Automated Diff [facility] 06/10 12:18 Order name: CBC with Automated Diff [facility] 06/10 12:18 Order name: NT PRO-BNP [facility] 06/10 12:18 Order name: NT PRO-BNP [facility] 06/10 12:18 Order name: Troponin I [facility] 06/10 12:41 Order name: Urine Dipstick-Ancillary [facility] 06/10 13:36 Order name: Glucose, Ancillary Testing [facility] 06/10 18:40 Order name: Glucose, Ancillary Testing [facility] 06/10 19:54 Order name: Hemoglobin [facility] 06/10 19:54 Order name: Hematocrit [facility] 06/10 10:25 Order name: Cardiac monitoring; Complete Time: 12:43 [facility] 06/10 10:25 Order name: EKG - Nurse/Tech; Complete Time: 13:36 [facility] 06/10 10:25 Order name: IV Saline Lock; Complete Time: 12:43 [facility] 06/10 10:25 Order name: Labs collected and sent; Complete Time: 12:43 [facility] 06/10 10:25 Order name: O2 Per Protocol; Complete Time: 10:31 [facility] 06/10 10:25 Order name: O2 Sat Monitoring; Complete Time: 10:31 [facility] 06/10 10:25 Order name: Urine Dipstick-Ancillary (obtain specimen); Complete Time: 12:42 [facility] 06/10 11:35 Order name: Misc. Order: DuoDerm to right hip; Complete Time: 13:02 stanley 06/10 12:00 Order name: Diet Regular; Complete Time: 12:01 bp 06/10 12:18 Order name: Low Sodium; Complete Time: 12:42 EDMS 06/10 12:50 Order name: Transfuse; Complete Time: 18:00 stanley EC:43 Rate is 63 beats/min. Rhythm is regular. QRS [place] is Normal. NC interval is normal. QRS stanley interval is normal. QT interval is normal. No Q waves. T waves are Normal. No ST changes noted. Clinical impression: NSR w/ Non-specific ST/T Changes, 1st degree heart block, and No evidence of ischemia. Interpreted by me. Reviewed by me. Administered Medications: 13:02 Drug: Rocephin (cefTRIAXone) 1 grams Route: IV; Rate: per protocol; Site: right hand; bp 13:03 Follow up: IV Status: Completed infusion; IV Intake: 10ml bp 13:03 Drug: ProTONIX (pantoprazole) 40 mg Route: IVP; Site: right hand; bp 13:03 Follow up: Response: No adverse reaction bp Disposition Summary: 06/10/21 12:06 Hospitalization Ordered Hospitalization Status: Observation stanley Provider: Antonio Tobias cha Location: Telemetry/MedSurg (observation) stanley Condition: Fair stanley Problem: new stanley Symptoms: have improved stanley Bed/Room Type: Standard stanley Room Assignment: 211(06/10/21 19:20) cg Diagnosis - Hematuria, unspecified stanley - Weakness stanley - Anemia, unspecified stanley - Unspecified combined systolic (congestive) and diastolic (congestive) heart failure stanley - Pleural effusion, not elsewhere classified - bilateral stanley - Unspecified kidney failure - acute on chronic stanley Forms: - Medication Reconciliation Form stanley - SBAR form stanley Signatures: Dispatcher [employer] EDMS Homer Dang MD MD cha Garcia, Cindy, RN RN Hugo Foley RN RN bp Corrections: (The following items were deleted from the chart) 19:20 12:06 stanley cg
--- NOTE | 2021-06-10 12:07 | ER ---
Nurse's Notes [facility] Name: Mumtaz Anderson Age: 66 yrs Sex: Male : 1955 Arrival Date: 06/10/2021 Time: 10:03 Bed 6 Private MD: Diagnosis: Hematuria, unspecified;Weakness;Anemia, unspecified;Unspecified combined systolic (congestive) and diastolic (congestive) heart failure;Pleural effusion, not elsewhere classified-bilateral;Unspecified kidney failure-acute on chronic Presentation: 06/10 10:18 Method Of Arrival: EMS: [facility] bp 10:18 Chief complaint: EMS states: BLOOD NOTED IN CATH BAG LAST PM, NOW RESOLVED. bp 10:18 Coronavirus screen: At this time, the client does not indicate any symptoms associated bp with coronavirus-19. Ebola Screen: No symptoms or risks identified at this time. Initial Sepsis Screen: Does the patient meet any 2 criteria? No. Patient's initial sepsis screen is negative. Does the patient have a suspected source of infection? No. Patient's initial sepsis screen is negative. Risk Assessment: Do you want to hurt yourself or someone else? Patient reports no desire to harm self or others. Onset of symptoms was June 09, 2021 at 23:00. 10:18 Acuity: VIDAL 3 bp Triage Assessment: 10:22 General: Appears in no apparent distress. comfortable, Behavior is calm, cooperative, bp appropriate for age. Pain: Denies pain. EENT: No deficits noted. Neuro: No deficits noted. Cardiovascular: No deficits noted. Respiratory: No deficits noted. GI: No signs and/or symptoms were reported involving the gastrointestinal system. : Parent/caregiver report the patient having BLOOD IN HAYNES CATHETER. Derm: No deficits noted. Musculoskeletal: PT NON-AMBULATORY AT BASELINE. Historical: - Allergies: 10:20 anextuss; bp 10:20 Latex, Natural Rubber; bp 10:20 spironolactone; bp - PMHx: 10:20 Anemia; CAD; Cerebrovascular accident; CHF; COPD; Diabetes - IDDM; bp Hypercholesterolemia; Hypertension; kidney disease; Seizures; Pneumonia; Myocardial infarction; Parkinsons; - PSHx: 10:20 PEG tube; Coronary artery bypass graft; hip; knee; bp - Immunization history:: Adult Immunizations unknown. - Social history:: Smoking status: unknown. - Family history:: not pertinent. Screenin:20 Abuse screen: Denies threats or abuse. Denies injuries from another. Nutritional bp screening: No deficits noted. Tuberculosis screening: No symptoms or risk factors identified. Fall Risk None identified. Assessment: 10:27 General: SEE TRIAGE NOTE. bp 13:40 Reassessment: pt hgb 7.1. ORDERS TO TRANSFUSE. bp 15:28 Reassessment: PT BEGINNING TRANSFUSION OF 1 UNIT PRBC FOR HGB 7.1. PT PLACED ON kd3 CONTINUOUS ECG MONITORING, BP CYCLING, O2 MONITORING. PT INITIAL VITALS 98.8 DEGREES, BP 145/60, PULSE 62, RESP 17, O2 SAT 100 ON RA. 17:12 Reassessment: PT TOLERATED TRANSFUSION WITH NO COMPLICATIONS. PT TRANSFUSIONS BEGAN AT kd3 1523 ENDED AT 1712. 1 UNIT PRC ADMINISTERED. Vital Signs: 10:06 BP 160 / 61; Pulse 58; Temp 98.0; Pulse Ox 100% ; Weight 63.5 kg; Height 6 ft. (182.88 tp1 cm); 10:18 BP 160 / 61; Pulse 58; Resp 17; Temp 98; Pulse Ox 100% on R/A; Weight 63.5 kg; Height 6 bp ft. (182.88 cm); 13:39 BP 145 / 60; Pulse 61; Resp 16; Temp 98.8; Pulse Ox 100% on R/A; bp 17:53 BP 150 / 71; Pulse 65; Resp 16; Temp 99.3; Pulse Ox 100% on R/A; kd3 10:18 Body Mass Index 18.99 (63.50 kg, 182.88 cm) bp ED Course: 10:03 Patient arrived in ED. iw 10:05 Homer Dang MD is Attending Physician. stanley 10:15 Hugo Curiel, RN is Primary Nurse. bp 10:20 Arm band placed on. bp 10:20 Patient has correct armband on for positive identification. Bed in low position. Call bp light in reach. Side rails up X2. Adult w/ patient. 10:22 Triage completed. bp 10:55 XRAY Chest (1 view) In Process Unspecified. EDMS 11:01 CT Stone Protocol In Process Unspecified. EDMS 11:07 Thorax Wo Con In Process Unspecified. EDMS 11:58 Antonio Tobias MD is Hospitalizing Provider. stanley 12:42 CBC with Automated Diff Sent. bp 12:42 CBC with Automated Diff Sent. bp 12:42 NT PRO-BNP Sent. bp 12:42 NT PRO-BNP Sent. bp 12:42 Troponin I Sent. bp 12:42 Basic Metabolic Panel Sent. bp 12:42 Basic Metabolic Panel Sent. bp 12:43 Type And Screen Sent. bp Administered Medications: 13:02 Drug: Rocephin (cefTRIAXone) 1 grams Route: IV; Rate: per protocol; Site: right hand; bp 13:03 Follow up: IV Status: Completed infusion; IV Intake: 10ml bp 13:03 Drug: ProTONIX (pantoprazole) 40 mg Route: IVP; Site: right hand; bp 13:03 Follow up: Response: No adverse reaction bp Intake: 13:03 IV: 10ml; Total: 10ml. bp Outcome: 12:06 Decision to Hospitalize by Provider. stanley 20:06 Patient left the ED. lp1 Signatures: Dispatcher [employer] EDMS Homer Dang MD MD cha Williams, Irene, RN Guillermina Piedra RN RN lp1 Hugo Curiel, ANDRADE RN Jeanette Gonzalez RN RN [email or web address] Brina Kulkarni [facility]
[2021-06-10 12:11] LABS: Albumin 2.6 g/dL (3.4-5.0); Bilirubin Direct 0.2 mg/dL (0-0.2); Bilirubin Total 0.5 mg/dL (0.2-1.0); Magnesium 2.5 mg/dL (1.8-2.4); Potassium 3.7 mmol/L (3.5-5.1); Protein, Total 6.6 g/dL (6.4-8.2); Troponin (Emerg Dept Use Only) 0.03 ng/mL (0.0-0.045)
[2021-06-10] MEDS ORDERED: ALBUTEROL 2.5 MG/3 ML NEB SOL NEB PRN (12:16)
[2021-06-10] MEDS ORDERED: ONDANSETRON 4 MG/2 ML VIAL IV PRN (12:16)
[2021-06-10] MEDS ORDERED: IPRATROPIUM BROM 0.5MG/2.5ML NEB PRN (12:16)
[2021-06-10] MEDS ORDERED: ACETAMINOPHEN 325 MG TABLET PO PRN (12:19)
[2021-06-10 12:31] LABS: Blood Morphology Comment NOTED (NOT SEEN); Burr Cells 1+; Hypochromasia 2+; Platelet Estimate DECR; White Blood Cell Scan OK (OK)
[2021-06-10 12:40] LABS: Urine Blood 3+ (Negative); Urine Glucose Negative (Negative); Urine Protein 3+ (Negative); Urine Specific Gravity 1.025 (1.005-1.030)
[2021-06-10] MEDS ORDERED: CEFTRIAXONE 1000 MG/VIAL ONE (12:47)
[2021-06-10] MEDS ORDERED: PANTOPRAZOLE 40 MG INJ ONE (12:48)
[2021-06-10] MEDS ORDERED: WATER FOR INJ,STERILE 10 ML ONE ×2 (12:48→12:49)
[2021-06-10] MEDS ORDERED: CEFTRIAXONE 1,000 MG in NA CHLORIDE 0.9% 50 ML IVPB ONE (13:00)
[2021-06-10] MEDS ORDERED: NA CHLORIDE 0.9% 250 ML ONE (13:27)
--- NOTE | 2021-06-10 16:15 | P.HP ---
Certification for Inpatient Patient admitted to: Observation With expected LOS: <2 Midnights Patient will require the following post-hospital care: None Practitioner: I am a practitioner with admitting privileges, knowledge of patient current condition, hospital course, and medical plan of care. Services: Services provided to patient in accordance with Admission requirements found in Title 42 Section 412.3 of the Code of Federal Regulations Patient History Date of Service: 06/10/21 Primary Care Provider: Jatinder Reason for admission: hematuria, anemia History of Present Illness: Patient is an office patient of [employer]. He has a history of myelofibrosis and peg feeding. He is mostly bed bound. Has some blood in his urine. He states he tugged on it a few times. However as this scared him he came to the ER. Was found to have 2 + blood in the urine. The patient hb was 7.1 Which is not due to hematuria. He has a history of transfusion dependent anemia. The patient was 7.8 last week. Is currently receiving a unit of blood. Allergies spironolactone Adverse Reaction (Verified 04/02/21 23:03) Anaphylaxis nexen Adverse Reaction (Uncoded 02/08/21 23:48) hallucination Home Medications: Aspirin [Adult Aspirin Regimen] 81 mg FT BEDTIME 06/04/20 Atorvastatin Calcium [Lipitor] 80 mg FT BEDTIME 06/04/20 Amlodipine [Norvasc*] 10 mg FT DAILY 07/16/20 Clopidogrel Bisulfate [Plavix*] 75 mg FT DAILY 07/16/20 Escitalopram [Lexapro*] 30 mg FT DAILY 07/16/20 Gabapentin 300 mg FT BID 07/16/20 Doxazosin [Cardura*] 2 mg FT BEDTIME 30 Days #30 tab 12/08/20 Ascorbic Acid [Vitamin C] 2,000 mg FT TID 12/16/20 Sucralfate [Carafate] 100 mg FT SEECOM 12/16/20 Trazodone HCl 150 tab FT BEDTIME 12/16/20 Furosemide 20 mg PO BID 04/02/21 Insulin -Regular Human [Novolin -R*] 100 units SQ ACHS 04/02/21 Benzonatate [Tessalon Perle*] 100 mg PO TID PRN 5 Days #15 cap 04/14/21 Fluconazole [Diflucan] 200 mg FT DAILY 7 Days #7 tablet 04/14/21 Glucerna 1.5 Higinio 150 ml FT QID bot 04/14/21 - Past Medical/Surgical History Diabetic: Yes -: Diabetes mellitus type 2, insulin-dependent -: CAD -: Hypertension -: Hyperlipidemia -: COPD -: Tobacco abuse -: Fracture t12 L3 -: PEG tube -: CKD 3 -: seizures -: Stroke -: Chronic diastolic congestive -: Knee surgery -: I&D lower right buttock -: hiatal hernia repair -: I and D to the left foot -: Left Bipolar Hemiarthroplasty 04/06/19 -: Hip surgery -: CABG -: hand sx, PEG Psychosocial/ Personal History: Patient is single. He lives with his son. - Family History Father -: Heart disease, Hypertension, Lung disease, GI disease, Diabetes, Cancer, Other (see notes) Notes: parkinson's disease Mother -: Heart disease, Hypertension, Diabetes, Cancer Sister -: Cancer - Social History Alcohol use: No CD- Drugs: No Caffeine use: Yes Review of Systems 10-point ROS is otherwise unremarkable Genitourinary: Hematuria Physical Examination - Physical Exam General: Alert, In no apparent distress HEENT: Atraumatic, PERRLA, Mucous membr. moist/pink, EOMI, Sclerae nonicteric Neck: Supple, 2+ carotid pulse no bruit, No LAD, Without JVD or thyroid abnormality Respiratory: Clear to auscultation bilaterally, Normal air movement Cardiovascular: Regular rate/rhythm, Normal S1 S2 Gastrointestinal: Normal bowel sounds, No tenderness Musculoskeletal: No tenderness Integumentary: No rashes Neurological: Normal gait, Normal speech, Normal strength at 5/5 x4 extr, Normal tone, Normal affect Lymphatics: No axilla or inguinal lymphadenopathy - Studies Laboratory Data (last 24 hrs) 06/10/21 11:40: PT 12.5, INR 1.09 06/10/21 11:40: WBC 8.00, Hgb 7.1 L, Hct 22.2 L, Plt Count 147 L 06/10/21 11:40: Sodium 142, Potassium 3.7, BUN 62 H, Creatinine 1.36 H, Glucose 104, Magnesium 2.5 H, Total Bilirubin 0.5, AST 38 H, ALT 68, Alkaline Phosphatase 80, Lipase 130 Assessment and Plan - Problems (Diagnosis) (1) Anemia aplastic aregenerative Current Visit: Yes Status: Chronic Plan: will transfuse one unit of blood. Will check his follow up hb. 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 Will repeat his ua in the am Qualifiers: Hematuria type: benign essential microscopic Qualified Code(s): R31.1 - Benign essential microscopic hematuria (3) PEG (percutaneous endoscopic gastrostomy) status Current Visit: Yes Status: Acute Plan: restart peg feedings. (4) Diabetes Current Visit: No Status: Acute Plan: Will continue the patients home medications. 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 Diabetes mellitus complication status: without complication Qualified Code(s): E11.9 - Type 2 diabetes mellitus without complications; Z79.4 - FPC (current) use of insulin (5) Hypertension Onset Date: 11/05/16 Current Visit: No Status: Chronic Plan: continue home medications Will monitor his bp and adjust as necessary Qualifiers: Hypertension type: primary hypertension Qualified Code(s): I10 - Essential (primary) hypertension Discharge Plan: Home Plan to discharge in: 24 Hours - Advance Directives Does patient have a Living Will: No Does patient have a Durable POA for Healthcare: No - Code Status/Comfort Care Code Status Assessed: No Code Status: Full Code Physician Review: Patient Assessed, Agree with Above Assessment and Plan Critical Care: No Time Spent Managing Pts Care (In Minutes): 45
[2021-06-10] MEDS ORDERED: FUROSEMIDE 20 MG/ 2ML VIAL IV SCH (17:00)
[2021-06-10] MEDS ORDERED: FUROSEMIDE 40 MG TABLET ONE (18:44)
[2021-06-10] MEDS ORDERED: FUROSEMIDE 20 MG/ 2ML VIAL ONE (18:46)
[2021-06-10] MEDS: GLUCERNA 1.5 CAL 1,000 ML BOT FT SCH ×2 (18:51→20:31)
[2021-06-10 19:52] LABS: Hematocrit 24.1 % (39.6-49.0)
[2021-06-10] MEDS: SUCRALFATE 1GM/10ML UCUP FT SCH (20:00)
[2021-06-10] MEDS: ATORVASTATIN 80 MG TAB FT SCH (20:32)
[2021-06-10] MEDS: GABAPENTIN 300 MG CAP FT SCH (20:33)
[2021-06-10] MEDS ORDERED: ACETAMINOPHEN 500 MG TAB PO SCH (21:00)
[2021-06-10] MEDS ORDERED: ASCORBIC ACID 1000 MG FT SCH ×2 (21:00)
[2021-06-10] MEDS ORDERED: TRAZODONE HCL 100 MG FT SCH (21:00)
[2021-06-10] MEDS ORDERED: ONDANSETRON 4 MG (ODT) TAB PO PRN (21:01)
[2021-06-10] MEDS ORDERED: ACETAMINOPHEN 500 MG TAB PO PRN ×2 (21:30→22:22)
[2021-06-10] MEDS ORDERED: GLUCAGON 1 MG/VIAL IM PRN (22:24)
[2021-06-10] MEDS ORDERED: D50W 25 GM/50 ML SYRINGE IV PRN (22:24)
[2021-06-11] MEDS ORDERED: NA CHLORIDE 0.9% 250 ML ONE (05:14)
[2021-06-11] MEDS: INSULIN -REGULAR HUMAN 50 UNIT/0.5 ML ML SQ SCH ×4 (07:30→20:09)
[2021-06-11] MEDS: AMLODIPINE 5 MG TAB FT SCH (08:33)
[2021-06-11] MEDS: ESCITALOPRAM 20 MG TAB FT SCH (08:34)
[2021-06-11] MEDS: GABAPENTIN 300 MG CAP FT SCH ×2 (08:34→20:10)
[2021-06-11] MEDS: FUROSEMIDE 20 MG TABLET PO SCH ×2 (08:35→17:25)
[2021-06-11] MEDS: NEPRO 1,000 ML BOT FT SCH ×4 (08:35→20:08)
[2021-06-11] MEDS: ASCORBIC ACID 500 MG TABLET FT SCH ×3 (08:51→20:08)
[2021-06-11] MEDS: SUCRALFATE 1GM/10ML UCUP FT SCH ×4 (08:51→20:07)
[2021-06-11] MEDS ORDERED: CEFTRIAXONE 1,000 MG in NA CHLORIDE 0.9% 50 ML IVPB SCH (09:00)
--- NOTE | 2021-06-11 10:25 | P.PN ---
Subjective Date of Service: 06/11/21 Primary Care Provider: Jatinder Chief Complaint: hematuria, anemia Subjective: Improving Review of Systems 10-point ROS is otherwise unremarkable Physical Examination - Vital Signs Temperature: 98.3 F Blood Pressure: 153/69 Pulse: 54 Respirations: 18 Pulse Ox (%): 98 - Physical Exam General: Alert, In no apparent distress HEENT: Atraumatic, PERRLA, EOMI Neck: Supple, JVD not distended Respiratory: Clear to auscultation bilaterally, Normal air movement Cardiovascular: Regular rate/rhythm, Normal S1 S2 Gastrointestinal: Normal bowel sounds, No tenderness Musculoskeletal: No tenderness Integumentary: No rashes Neurological: Normal speech, Normal tone, Normal affect Lymphatics: No axilla or inguinal lymphadenopathy - Studies Laboratory Data (last 24 hrs) 06/10/21 11:40: PT 12.5, INR 1.09 06/10/21 11:40: WBC 8.00, Hgb 7.1 L, Hct 22.2 L, Plt Count 147 L 06/10/21 11:40: Sodium 142, Potassium 3.7, BUN 62 H, Creatinine 1.36 H, Glucose 104, Magnesium 2.5 H, Total Bilirubin 0.5, AST 38 H, ALT 68, Alkaline Phosphatase 80, Lipase 130 Assessment & Plan - Problems (Diagnosis) (1) Anemia aplastic aregenerative Current Visit: Yes Status: Chronic Plan: will transfuse one unit of blood. Will check his follow up hb. 06/11 Hb stable. Will give him another unit before discharge. His is in [place]. Will plan for discharge tomorrow as he most likely has no one at home to receive him. 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 Will repeat his ua in the am Qualifiers: Hematuria type: benign essential microscopic Qualified Code(s): R31.1 - Benign essential microscopic hematuria (3) PEG (percutaneous endoscopic gastrostomy) status Current Visit: Yes Status: Acute Plan: restart peg feedings. (4) Diabetes Current Visit: No Status: Acute Plan: Will continue the patients home medications. Qualifiers: Diabetes mellitus type: type 2 Diabetes mellitus care home insulin use: with care home use Diabetes mellitus complication status: without complication Qualified Code(s): E11.9 - Type 2 diabetes mellitus without complications; Z79.4 - snf (current) use of insulin (5) Hypertension Onset Date: 11/05/16 Current Visit: No Status: Chronic Plan: continue home medications Will monitor his bp and adjust as necessary Qualifiers: Hypertension type: primary hypertension Qualified Code(s): I10 - Essential (primary) hypertension Discharge Plan: Home Plan to discharge in: 24 Hours - Code Status/Comfort Care Code Status Assessed: No Physician Review: Patient Assessed, Agree with Above Assessment and Plan Critical Care: No Time Spent Managing Pts Care (In Minutes): 20
[2021-06-11 13:40] LABS: Urine Appearance Cloudy (Clear); Urine Bilirubin Negative (Negative); Urine Blood 2+ (Negative); Urine Color Yellow (Yellow); Urine Glucose Negative (Negative); Urine Protein 3+ (Negative); Urine Urobilinogen 0.2 mg/dL (0.2-1.0); Urine pH 5.5 (5.0-7.0)
[2021-06-11 13:41] LABS: Urine Microscopic Reflex ORDER UMIC
[2021-06-11 13:48] LABS: Urine Bacteria >50 /HPF (NONE SEEN); Urine RBC 20-50 /HPF (NONE SEEN); Urine Yeast MANY (NONE SEEN)
[2021-06-11] MEDS: ATORVASTATIN 80 MG TAB FT SCH (20:08)
[2021-06-11] MEDS ORDERED: TRAZODONE 150 MG TAB FT SCH (21:00)
[2021-06-11 22:11] VITALS: BMI 22.9
[2021-06-12 05:00] VITALS: BP 148/67
[2021-06-12 06:09] LABS: Absolute Lymphocytes (CBC) 1.1 K/uL (0.7-4.9); Basophils % 0.9 % (0-1.3); Hematocrit 26.4 % (39.6-49.0); Lymphocytes % 13.9 % (15.3-44.8); MPV 10.3 fL (7.6-11.3); RBC Red Blood Cell Count 3.72 M/uL (4.33-5.43)
[2021-06-12] MEDS: INSULIN -REGULAR HUMAN 50 UNIT/0.5 ML ML SQ SCH (07:30)
[2021-06-12] MEDS: AMLODIPINE 5 MG TAB FT SCH (08:12)
[2021-06-12] MEDS: SUCRALFATE 1GM/10ML UCUP FT SCH (08:12)
[2021-06-12] MEDS: ASCORBIC ACID 500 MG TABLET FT SCH (08:12)
[2021-06-12] MEDS: ESCITALOPRAM 20 MG TAB FT SCH (08:13)
[2021-06-12] MEDS: NEPRO 1,000 ML BOT FT SCH (08:14)
[2021-06-12] MEDS: FUROSEMIDE 20 MG TABLET PO SCH (08:14)
[2021-06-12] MEDS: GABAPENTIN 300 MG CAP FT SCH (08:14)
[2021-06-12 08:44] VITALS: TEMP 98.4
--- NOTE | 2021-06-12 09:07 | P.DS ---
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 (2) Hematuria Current Visit: Yes Status: Acute Qualifiers: Hematuria type: benign essential microscopic Qualified Code(s): R31.1 - Benign essential microscopic hematuria (3) PEG (percutaneous endoscopic gastrostomy) status Current Visit: Yes Status: Acute (4) Diabetes Current Visit: No Status: Acute Qualifiers: Diabetes mellitus type: type 2 Diabetes mellitus alf insulin 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 He has a history of myelofibrosis and peg feeding. He is mostly bed bound. Has some blood in his urine. He states he tugged on it a few times. However as this scared him he came to the ER. Was found to have 2 + blood in the urine. The patient hb was 7.1 Which is not due to hematuria. He has a history of transfusion dependent anemia. The patient was 7.8 last week. Is currently receiving a unit of blood. Hospital Course: patient was admitted for chronic anemia. He recieved 2 units. He is doing much better. Has a positive U/a Has a chronic indwelling hernandez. Is asymptomatic. Will give him 5 days of macrodantin Vital Signs/Physical Exam: Temp Pulse Resp BP Pulse Ox 98.4 F 55 18 148/67 H 99 06/12/21 08:00 06/12/21 08:14 06/12/21 08:00 06/12/21 08:14 06/12/21 08:00 General: Alert, In no apparent distress HEENT: Atraumatic, PERRLA, EOMI Neck: Supple, JVD not distended Respiratory: Clear to auscultation bilaterally, Normal air movement Cardiovascular: Regular rate/rhythm, Normal S1 S2 Gastrointestinal: Normal bowel sounds, No tenderness Musculoskeletal: No tenderness Integumentary: No rashes Neurological: Normal speech, Normal tone, Normal affect Lymphatics: No axilla or inguinal lymphadenopathy Laboratory Data at Discharge: WBC 7.70 K/uL (4.3-10.9) 06/12/21 05:46 Hgb 8.5 g/dL (13.6-17.9) L 06/12/21 05:46 Hct 26.4 % (39.6-49.0) L 06/12/21 05:46 Plt Count 137 K/uL (152-406) L 06/12/21 05:46 PT 12.5 SECONDS (9.5-12.5) 06/10/21 11:40 INR 1.09 06/10/21 11:40 Sodium 142 mmol/L (136-145) 06/10/21 11:40 Potassium 3.7 mmol/L (3.5-5.1) 06/10/21 11:40 BUN 62 mg/dL (7-18) H 06/10/21 11:40 Creatinine 1.36 mg/dL (0.55-1.3) H 06/10/21 11:40 Glucose 104 mg/dL (74-106) 06/10/21 11:40 Magnesium 2.5 mg/dL (1.8-2.4) H 06/10/21 11:40 Total Bilirubin 0.5 mg/dL (0.2-1.0) 06/10/21 11:40 AST 38 U/L (15-37) H 06/10/21 11:40 ALT 68 U/L (12-78) 06/10/21 11:40 Alkaline Phosphatase 80 U/L (45-117) 06/10/21 11:40 Troponin I 0.03 ng/mL (0.0-0.045) 06/10/21 16:47 Lipase 130 U/L (73-393) 06/10/21 11:40 Home Medications: Aspirin [Adult Aspirin Regimen] 81 mg FT BEDTIME 06/04/20 Atorvastatin Calcium [Lipitor] 80 mg FT BEDTIME 06/04/20 Amlodipine [Norvasc*] 10 mg FT DAILY 07/16/20 Clopidogrel Bisulfate [Plavix*] 75 mg FT DAILY 07/16/20 Escitalopram [Lexapro*] 40 mg FT DAILY 07/16/20 Gabapentin 300 mg FT BID 07/16/20 Doxazosin [Cardura*] 2 mg FT BEDTIME 30 Days #30 tab 12/08/20 Ascorbic Acid [Vitamin C] 2,000 mg FT BID 12/16/20 Sucralfate [Carafate] 100 mg FT SEECOM 12/16/20 Trazodone HCl 150 tab FT BEDTIME 12/16/20 Furosemide 20 mg PO BID 04/02/21 Insulin -Regular Human [Novolin -R*] 100 units SQ ACHS 04/02/21 Ferrous Sulfate [Ferrous Sulfate Elixir*] 220 mg FT BID 06/10/21 Nut.tx.impaired Renal Fxn,Soy [Nepro Carb Steady] 360 mg FT QID 06/10/21 Ondansetron [Ondansetron Odt] 4 mg FT Q8H 06/10/21 Promethazine Tab [Phenergan*] 25 mg FT Q6H 06/10/21 Tamsulosin [Flomax*] 0.4 mg PO DAILY 06/10/21 Nitrofurantoin Macrocrystal [Macrodantin] 100 mg PO TID 5 Days #15 capsule 06/12/21 New Medications: Nitrofurantoin Macrocrystal [Macrodantin] 100 mg PO TID 5 Days #15 capsule Diet: ADA Activity: Fall precautions Followup: NONE,NONE [Primary Care Provider] - Time spent managing pt's care (in minutes): 25
[2021-06-12 11:12] VITALS: O2SAT 99
== END 2021-06-12 10:57 | disposition home health service (06) | DRG 809 ==
LOC: ER 09:59 → ERHOLD 12:14 → 2ND 19:40
PROVIDERS: ADMIT Internal Medicine; ATTEND Internal Medicine
PROC: 30233N1 Transfusion of Nonautologous Red Blood Cells into Peripheral Vein, Percutaneous Approach (ICD-10-PCS; principal; 2021-06-10)
DX: D60.0 Chronic acquired pure red cell aplasia (principal); I50.32 Chronic diastolic (congestive) heart failure; I13.0 Hypertensive heart and chronic kidney disease with heart failure and stage 1 through stage 4 chronic kidney disease, or unspecified chronic kidney disease; N17.9 Acute kidney failure, unspecified; N18.30 Chronic kidney disease, stage 3 unspecified; E11.22 Type 2 diabetes mellitus with diabetic chronic kidney disease; I25.10 Atherosclerotic heart disease of native coronary artery without angina pectoris; E78.5 Hyperlipidemia, unspecified; J44.9 Chronic obstructive pulmonary disease, unspecified; I25.2 Old myocardial infarction; G20 Parkinson's disease; R31.1 Benign essential microscopic hematuria; Z79.82 Long term (current) use of aspirin; Z79.02 Long term (current) use of antithrombotics/antiplatelets; Z79.4 Long term (current) use of insulin; Z93.1 Gastrostomy status; Z88.8 Allergy status to other drugs, medicaments and biological substances; Z91.040 Latex allergy status; Z86.73 Personal history of transient ischemic attack (TIA), and cerebral infarction without residual deficits; Z95.1 Presence of aortocoronary bypass graft; Z79.899 Other long term (current) drug therapy; Z20.822 Contact with and (suspected) exposure to COVID-19
CPT/HCPCS: 36415; 71045; 71250; 74176; 76377; 80048; 80076; 81003; 81015; 82947; 83690; 83735; 83880; 84484; 85014; 85018; 85025; 85610; 86850; 86900; 86901; 87077; 87086; 87088; 87186; 93005; 96374; 96375; 99284; C9113; J1940; J7050; P9016; U0003

== ENCOUNTER 2021-07-07 17:33 | Observation (INO) | payer OTHER ==
--- OUTSIDE RECORDS SUMMARY | 2021-07-07 18:14 | XMS REPORT | Continuity of Care Document ---
:1955 Author Organization [facility] t Address [address] [place] [address] Care Team Providers Name Role Phone Ra CRUM Primary Care Physician Unavailable TEREZA Attending Clinician Unavailable Charly JONES Attending Clinician Doctor Unassigned, Name Attending Clinician Unavailable Ileana Mcintyre Attending Clinician Unavailable Dionna ZAFAR, A Attending Clinician Unavailable Adrian ZAFAR Attending Clinician Scott Sullivan MD Attending Clinician Tereza JONES Attending Clinician Daisy JONES P Attending Clinician Kelton Espinosa DO Attending Clinician Dante Pretty MD J Attending Clinician Blanca JONES Attending Clinician Arash Cleveland DO Attending Clinician Jimy ZAFAR, E Attending Clinician Milton Devlin MD Attending Clinician MILTON DEVLIN Attending Clinician Unavailable Landon Attending Clinician Mary Ellen Bah MD Attending Clinician Marlon JONES Attending Clinician Tay JONES Attending Clinician Balaji FURNACE UNLOADER, M Attending Clinician Pob, Lab Main Attending Clinician Unavailable TAY Attending Clinician Unavailable Dion JONES Attending Clinician DION Attending Clinician Unavailable Anu LARSEN Attending Clinician Arash Sunshine MD Attending Clinician Arash SUNSHINE Attending Clinician Unavailable Elmo JONES Attending Clinician Unavailable ELMO Attending Clinician Unavailable ELMO Attending Clinician Unavailable 1, Lab Attending Clinician Unavailable Room, Therapy Tub Attending Clinician Unavailable Hailey KWON Attending Clinician Unavailable Doyle MOP, R Attending Clinician RK TROTTER Attending Clinician Unavailable Singer LARSEN Attending Clinician GRIS Attending Clinician Unavailable Hailey Willis Attending Clinician Kayla JONES Attending Clinician Gris JONES Attending Clinician Joshua JONES Attending Clinician TEREZA Admitting Clinician Unavailable Laurie JONES, Scott Admitting Clinician Marlon JONES Admitting Clinician Arash Sunshine MD Admitting Clinician Arash SUNSHINE Admitting Clinician Unavailable ELMO Admitting Clinician Unavailable Hailey KWON Admitting Clinician Unavailable RK TROTTER Admitting Clinician Unavailable GRIS Admitting Clinician Unavailable Gris JONES Admitting Clinician Payers Payer Name Policy Type Policy Number Effective Date Expiration Date Mary Ellen nichols MEDICARE PART A [id number] 2020 \\T\\ B 00:00:00 MEDICAID SSI PENDING 2019 PENDING 00:00:00 Problems Condition Condition Condition Status Onset Resolution Last Treating Co mments Source Name Details Category Date Date Treatment Clinician Date E46 E46 Disease Active Univers Unspecifie Unspecifie 4-11 it y of d severe d severe 00:00: [place] protein-ca protein-ca 00 Me kevin maya Branch malnutriti malnutriti on on Upper GI Upper GI Disease Active Unive rs bleed bleed 4-10 ity of 00:00: [place] [facility] Hypoglycem Hypoglycem Disease Active 2020-0 U nivers ia ia 4-14 ity of 00:00: [place] [facility] CAD CAD Disease Active 2019- Univers (coronary (coronary 3-17 ity of artery artery 00:00: [place] disease) disease) 00 [facility] CKD stage CKD stage Disease Active 2019- Uni vers 2 due to 2 due to 3-17 ity of type 2 type 2 00:00: [place] diabetes diabetes 00 [facility] mellitus mellitus Branch OSCAR (acute OSCAR (acute Disease Active 2020-0 U nivers kidney kidney 3-17 ity of injury) injury) 00:00: [place] [facility] Fe Fe Disease Active 2019- Univers deficiency deficiency 3-17 it y of anemia anemia 00:00: [place] [facility] Hyperkalem Hyperkalem Disease Active 2020-0 U nivers ia ia 3-17 ity of 00:00: [place] [facility] SOB SOB Disease Active 2019-0 Univers (shortness (shortness 2-29 it y of of breath) of breath) [place] 00 [place] Troponin I Troponin I Disease Active 2020-0 U nivers above above 2-05 ity of reference reference 00:00: [facility] s range range 00 Medical Branch Hypertensi Hypertensi Disease Active 2020-0 U nivers ve urgency ve urgency 2-05 it y of 00:00: [place] [facility] CHF CHF Disease Active 2020-0 Univers (congestiv (congestiv 2-04 it y of e heart e heart 00:00: [place] failure) failure) 00 Medica l Branch CHF CHF Disease Active 2020-0 Univers exacerbati exacerbati 2-04 it y of on on 00:00: [place] [facility] Anemia, Anemia, Disease Active Overview: Univ ers unspecifie unspecifie 9-11 Formattin ity of d type d type 00:00: g of this [place] 00 note Medical might be Branch different from the original. Added automatic ally from request for surgery [id number] Dysphagia, Dysphagia, Disease Active Overview : Univers unspecifie unspecifie 03-25 Formattin ity of d type d type 00:00: g of this 00 note Medical might be Branch different from the original. Added automatic ally from request for surgery [id number] Atrial Atrial Disease Active Univers flutter flutter 403 ity of 00:00: [place] 00 Medical Branch [...] 00:00: [place] involving involving 00 Medi [place]iz[place] Branch coronary coronary artery of artery of [place] heart with heart with angina angina pectoris pectoris HTN HTN Disease Active Univers (hypertens (hypertens 10-14 it y of ion) ion) 00:00: [place] 00 Medical Branch HLD HLD Disease Active [...] of History of Disease Active U nivers PA PA 3-01 ity of (myocardia (myocardia 00:00: [place] [...] ity of [place] malignant neoplasm Physic ians Mother Family history of Univers ity of [place] coronary artery Physician s disease Mother Family history of Univers ity of [place] disease Physici ans Father Family history of Univers ity of [place] diabetes mellitus Physici ans Father Family history of Univers ity of [place] hypertension Physicians Father Family history of Univers it[place] of [place] coronary artery Physician s disease Sister Family history of Univers it[facility] of [place] malignant neoplasm Physic ians Brother Family history of Univers [facility] of [place] pancreatic cancer Physici ans Brother Cancer [facility] Father Coronary Heart Disease Un iversity of [facility] Father Diabetes [facility] Father Hypertension University o f [facility] Mother [place] University of [place] s disease [facility] Branch Mother Cancer [facility] Mother Coronary Heart Disease Un iversity of [facility] Mother Diabetes [facility] Mother Heart [facility] Mother Hypertension University o f [facility] Sister Cancer [facility] Social History Social Habit Start Date Stop Date Quantity Comments Source Exposure to Not sure University of SARS-CoV-2 (event) [place] [facility] History SDOH University o f Alcohol Frequency [facility] edical Branch History SDOH University o f Alcohol Std Drinks [place] [facility] History SDVA University o f Alcohol Binge [place] [facility] al [facility] History of tobacco Cigarette Smoker University of use [facility] Branch Alcohol intake 2020-05-03 2020-05-03 Current drinker Unive rsity of 00:00:00 00:00:00 of alcohol [place] [facility] (finding) Branch History SDOH 2019-09-30 2019-09-30 3 University o f Financial 00:00:00 00:00:00 [place] [facility] History SDOH Food 2019-09-30 2019-09-30 1 Univers ity of Worry 00:00:00 00:00:00 [place] [facility] History SDOH Food 2019-09-30 2019-09-30 1 Univers ity of Scarcity 00:00:00 00:00:00 [place] [facility] History SDOH 2019-09-30 2019-09-30 2 University o f Transport Med 00:00:00 00:00:00 [place] Medic al Branch History SDOH 2019-09-30 2019-09-30 2 University o f Transport Non-Med 00:00:00 00:00:00 [facility] Education 2019-09-29 2019-09-29 13 University of 00:00:00 00:00:00 [facility] Tobacco use and 2019-09-29 2019-09-29 Never used Universit y of exposure 00:00:00 00:00:00 [facility] Cigarettes smoked 2019-09-29 2019-09-29 Univers ity of current (pack per 00:00:00 00:00:00 [place] ) - Reported Branch Cigarette 2019-09-29 2019-09-29 University of pack-years 00:00:00 00:00:00 [facility] Tobacco Comment 2018-04-03 2018-04-03 2-2.5 PPD X 40 Unive rsity of 00:00:00 00:00:00 years, down to [facility] lizzy 1PPD since Branch 02/2018 Alcohol Comment 2018-04-03 2018-04-03 quit5 years ago Univ ersity of 00:00:00 00:00:00 [facility] Sex [birth year] Universit y of 00:00:00 00:00:00 [facility] Smoking Status Start Date Stop Date Source Ex-smoker (finding) University o f [place] Physicians Current every day smoker 2019-09-28 00:00:00 Uni versity of [facility] Medications Ordered Filled Start Stop Current Ordering Indication Dosage Frequency Signature Comments Components Source Medication Medication Date Date Medication? Clinician (SIG) Name Name metoprolol Yes [id number] 25mg Take 25 mg Univers tartrate 75 4-29 through ity o f mg Tab 00:00: enteral [place] 00 tube 2 Medical (two) Branch times daily. metoprolol Yes [id number] 25mg Take 25 mg Univers tartrate 75 4-29 through ity o f mg Tab 00:00: enteral [place] 00 tube 2 Medical (two) Branch times daily. metoprolol Yes [id number] 100mg Take 1 Univers tartrate 4-29 tablet ity of 100 mg 00:00: through [place] tablet 00 enteral Medical tube 2 Branch (two) times daily. metoprolol Yes [id number] 25mg Take 25 mg Univers tartrate 75 4-29 through ity o f mg Tab 00:00: enteral [place] 00 tube 2 Medical (two) Branch times daily. metoprolol Yes [id number] 100mg Take 1 Univers tartrate 4-29 tablet ity of 100 mg 00:00: through [place] tablet 00 enteral Medical tube 2 Branch (two) times daily. metoprolol 2020-0 Yes [id number] 25mg Take 25 mg Univers tartrate 75 4-29 through ity o f mg Tab 00:00: enteral [place] 00 tube 2 Medical (two) Branch times daily. metoprolol 2020-0 Yes [id number] 100mg Take 1 Univers tartrate 4-29 tablet ity of 100 mg 00:00: through [place] tablet 00 enteral Medical tube 2 Branch (two) times daily. metoprolol 2020-0 Yes [id number] 25mg Take 25 mg Univers tartrate 75 4-29 through ity o f mg Tab 00:00: enteral [place] 00 tube 2 Medical (two) Branch times daily. metoprolol 2020-0 Yes [id number] 100mg Take 1 Univers tartrate 4-29 tablet ity of 100 mg 00:00: through [place] tablet 00 enteral Medical tube 2 Branch (two) times daily. metoprolol 2020-0 Yes [id number] 25mg Take 25 mg Univers tartrate 75 4-29 through ity o f mg Tab 00:00: enteral [place] 00 tube 2 Medical (two) Branch times daily. metoprolol 2020-0 Yes [id number] 100mg Take 1 Univers tartrate 4-29 tablet ity of 100 mg 00:00: through [place] tablet 00 enteral Medical tube 2 Branch (two) times daily. metoprolol 2020-0 Yes [id number] 25mg Take 25 mg Univers tartrate 75 4-29 through ity o f mg Tab 00:00: enteral [place] 00 tube 2 Medical (two) Branch times daily. metoprolol 2020-0 Yes [id number] 100mg Take 1 Univers tartrate 4-29 tablet ity of 100 mg 00:00: through [place] tablet 00 enteral Medical tube 2 Branch (two) times daily. metoprolol 2020-0 Yes [id number] 25mg Take 25 mg Univers tartrate 75 4-29 through ity o f mg Tab 00:00: enteral [place] 00 tube 2 Medical (two) Branch times daily. metoprolol 2020-0 Yes [id number] 100mg Take 1 Univers tartrate 4-29 tablet ity of 100 mg 00:00: through [place] tablet 00 enteral Medical tube 2 Branch (two) times daily. sennosides- Yes [id number] 1{tbl} Take 1 Univers docusate 4-28 tablet ity of sodium 00:00: through [place] 8.6-50 mg 00 enteral Medical per tablet tube Branch daily. lidocaine 5 2020- Yes [id number] 1{patch Apply 1 Univers % (700 4-28 } Patch to ity of mg/patch) 00:00: area(s) [place] patch 00 daily. Medical Branch ferrous Yes [id number] 300mg Take 5 mL Univers sulfate 300 4-28 through ity o f mg (60 mg 00:00: enteral [place] iron)/5 mL 00 tube every Med ical solution other day. Bran h sennosides- Yes [id number] 1{tbl} Take 1 Univers docusate 4-28 tablet ity of sodium 00:00: through [place] 8.6-50 mg 00 enteral Medical per tablet tube Branch daily. lidocaine 5 Yes [id number] 1{patch Apply 1 Univers % (700 4-28 } Patch to ity of mg/patch) 00:00: area(s) [place] patch 00 daily. Medical Branch esomeprazol Yes [id number] 40mg Take 40 mg Univers e (NEXIUM 4-28 1 by mouth ity of PACKET) 40 00:00: daily with [place] mg packet 00 breakfast. [facility] sennosides- Yes [id number] 1{tbl} Take 1 Univers docusate 4-28 tablet ity of sodium 00:00: through [place] 8.6-50 mg 00 enteral Medical per tablet tube Branch daily. lidocaine 5 Yes [id number] 1{patch Apply 1 Univers % (700 4-28 } Patch to ity of mg/patch) 00:00: area(s) [place] patch 00 daily. Medical Branch esomeprazol Yes [id number] 40mg Take 40 mg Univers e (NEXIUM 4-28 1 by mouth ity of PACKET) 40 00:00: daily with [place] mg packet 00 breakfast. [facility] sennosides- Yes [id number] 1{tbl} Take 1 Univers docusate 4-28 tablet ity of sodium 00:00: through [place] 8.6-50 mg 00 enteral Medical per tablet tube Branch daily. lidocaine 5 Yes [id number] 1{patch Apply 1 Univers % (700 4-28 } Patch to ity of mg/patch) 00:00: area(s) [place] patch 00 daily. Medical Branch esomeprazol Yes [id number] 40mg Take 40 mg Univers e (NEXIUM 4-28 1 by mouth ity of PACKET) 40 00:00: daily with [place] mg packet 00 breakfast. [facility]- Yes [id number] 1{tbl} Take 1 Univers docusate 4-28 tablet ity of sodium 00:00: through [place] 8.6-50 mg 00 enteral Medical per tablet tube Branch daily. lidocaine 5 Yes [id number] 1{patch Apply 1 Univers % (700 4-28 } Patch to ity of mg/patch) 00:00: area(s) [place] patch 00 daily. Medical Branch esomeprazol Yes [id number] 40mg Take 40 mg Univers e (NEXIUM 4-28 1 by mouth ity of PACKET) 40 00:00: daily with [place] mg packet 00 breakfast. [facility] Yes [id number] 1{tbl} Take 1 Univers docusate 4-28 tablet ity of sodium 00:00: through [place] 8.6-50 mg 00 enteral Medical per tablet tube Branch daily. lidocaine Yes [id number] 1{patch Apply 1 Univers % (700 4-28 } Patch to ity of mg/patch) 00:00: area(s) [place] patch 00 daily. Medical Branch esomeprazol Yes [id number] 40mg Take 40 mg Univers e (NEXIUM 4-28 1 by mouth ity of PACKET) 40 00:00: daily with [place] mg packet 00 breakfast. [facility] Yes [id number] 1{tbl} Take 1 Univers docusate 4-28 tablet ity of sodium 00:00: through [place] 8.6-50 mg 00 enteral Medical per tablet tube Branch daily. lidocaine 5 2020- Yes [id number] 1{patch Apply 1 Univers % (700 4-28 } Patch to ity of mg/patch) 00:00: area(s) [place] patch 00 daily. Medical Branch esomeprazol Yes [id number] 40mg Take 40 mg Univers e (NEXIUM 4-28 1 by mouth ity of PACKET) 40 00:00: daily with [place] mg packet 00 breakfast. [facility]- Yes [id number] 1{tbl} Take 1 Univers docusate 4-28 tablet ity of sodium 00:00: through [place] 8.6-50 mg 00 enteral Medical per tablet tube Branch daily. lidocaine 5 Yes [id number] 1{patch Apply 1 Univers % (700 4-28 } Patch to ity of mg/patch) 00:00: area(s) [place] patch 00 daily. Medical Branch esomeprazol Yes [id number] 40mg Take 40 mg Univers e (NEXIUM 4-28 1 by mouth ity of PACKET) 40 00:00: daily with [place] mg packet 00 breakfast. [facility]- Yes [id number] 1{tbl} Take 1 Univers docusate 4-28 tablet ity of sodium 00:00: through [place] 8.6-50 mg 00 enteral Medical per tablet tube Branch daily. lidocaine 5 Yes [id number] 1{patch Apply 1 Univers % (700 4-28 } Patch to ity of mg/patch) 00:00: area(s) [place] patch 00 daily. Medical Branch esomeprazol Yes [id number] 40mg Take 40 mg Univers e (NEXIUM 4-28 1 by mouth ity of PACKET) 40 00:00: daily with [place] mg packet 00 breakfast. [facility]- Yes [id number] 1{tbl} Take 1 Univers docusate 4-28 tablet ity of sodium 00:00: through [place] 8.6-50 mg 00 enteral Medical per tablet tube Branch daily. lidocaine 5 Yes [id number] 1{patch Apply 1 Univers % (700 4-28 } Patch to ity of mg/patch) 00:00: area(s) [place] patch 00 daily. Medical Branch esomeprazol Yes [id number] 40mg Take 40 mg Univers e (NEXIUM 4-28 1 by mouth ity of PACKET) 40 00:00: daily with [place] mg packet 00 breakfast. [facility] sennoside- Yes [id number] 1{tbl} Take 1 Univers docusate 4-28 tablet ity of sodium 00:00: through [place] 8.6-50 mg 00 enteral Medical per tablet tube Branch daily. lidocaine 5 Yes [id number] 1{patch Apply 1 Univers % (700 4-28 } Patch to ity of mg/patch) 00:00: area(s) [place] patch 00 daily. Medical Branch esomeprazol Yes [id number] 40mg Take 40 mg Univers e (NEXIUM 4-28 1 by mouth ity of PACKET) 40 00:00: daily with [place] mg packet 00 breakfast. [facility]- Yes [id number] 1{tbl} Take 1 Univers docusate 4-28 tablet ity of sodium 00:00: through [place] 8.6-50 mg 00 enteral Medical per tablet tube Branch daily. lidocaine 5 Yes [id number] 1{patch Apply 1 Univers % (700 4-28 } Patch to ity of mg/patch) 00:00: area(s) [place] patch 00 daily. Medical Branch esomeprazol Yes [id number] 40mg Take 40 mg Univers e (NEXIUM 4-28 1 by mouth ity of PACKET) 40 00:00: daily with [place] mg packet 00 breakfast. [facility] ferrous 2020- No [id number] 220mg Take 5 mL Univers sulfate 220 11-09- 1 by mouth 3 i ty of mg (44 mg 00:00: 04:59 (three) [place] iron)/5 mL 00 :00 times Medical solution daily with Branc h meals for 30 days. gabapentin 2020- No [id number] 300mg Take 6 mL Univers 250 mg/5 mL 11-09 05-29 through ity of solution 00:00: 04:59 enteral [place] 00 :00 tube 3 Medical (three) Branch times daily for 30 days. ferrous 2022020- No [id number] 220mg Take 5 mL Univers sulfate 220 11-09- 1 by mouth 3 i ty of mg (44 mg 00:00: 04:59 (three) [place] iron)/5 mL 00 :00 times Medical solution daily with Branc h meals for 30 days. gabapentin 2020- No [id number] 300mg Take 6 mL Univers 250 mg/5 mL 11-09- through ity of solution 00:00: 04:59 enteral [place] 00 :00 tube 3 Medical (three) Branch times daily for 30 days. ferrous 2020- No [id number] 220mg Take 5 mL Univers sulfate 220 11-09- 1 by mouth 3 i ty of mg (44 mg 00:00: :59 (three) [place] iron)/5 mL 00 :00 times Medical solution daily with Branc h meals for 30 days. gabapentin 2020- No [id number] 300mg Take 6 mL Univers 250 mg/5 mL 11-09- through ity of solution 00:00: 04:59 enteral [place] 00 :00 tube 3 Medical (three) Branch times daily for 30 days. ferrous 2020- No [id number] 220mg Take 5 mL Univers sulfate 220 11-09- 1 by mouth 3 i ty of mg (44 mg 00:00: 04:59 (three) [place] iron)/5 mL 00 :00 times Medical solution daily with Branc h meals for 30 days. gabapentin 2020- No [id number] 300mg Take 6 mL Univers 250 mg/5 mL 11-09- through ity of solution 00:00: 04:59 enteral [place] 00 :00 tube 3 Medical (three) Branch times daily for 30 days. ferrous 2020- No [id number] 220mg Take 5 mL Univers sulfate 220 11-09- 1 by mouth 3 i ty of mg (44 mg 00:00: 04:59 (three) [place] iron)/5 mL 00 :00 times Medical solution daily with Branc h meals for 30 days. gabapentin 2020- No [id number] 300mg Take 6 mL Univers 250 mg/5 mL 11-09- through ity of solution 00:00: 04:59 enteral [place] 00 :00 tube 3 Medical (three) Branch times daily for 30 days. ferrous 2020- No [id number] 220mg Take 5 mL Univers sulfate 220 11-09- 1 by mouth 3 i ty of mg (44 mg 00:00: :59 (three) [place] iron)/5 mL 00 :00 times Medical solution daily with Branc h meals for 30 days. gabapentin 2020- No [id number] 300mg Take 6 mL Univers 250 mg/5 mL 11-09 through ity of solution 00:00: 04:59 enteral [place] 00 :00 tube 3 Medical (three) Branch times daily for 30 days. ferrous 2020- No [id number] 220mg Take 5 mL Univers sulfate 220 11-09 1 by mouth 3 i ty of mg (44 mg 00:00: :59 (three) [place] iron)/5 mL 00 :00 times Medical solution daily with Branc h meals for 30 days. gabapentin 2020- No [id number] 300mg Take 6 mL Univers 250 mg/5 mL 11-09 through ity of solution 00:00: 04:59 enteral [place] 00 :00 tube 3 Medical (three) Branch times daily for 30 days. ferrous 2020- No [id number] 220mg Take 5 mL Univers sulfate 220 11-09 1 by mouth 3 i ty of mg (44 mg 00:00: :59 (three) [place] iron)/5 mL 00 :00 times Medical solution daily with Branc h meals for 30 days. gabapentin 2020- No [id number] 300mg Take 6 mL Univers 250 mg/5 mL 11-09 through ity of solution 00:00: 04:59 enteral [place] 00 :00 tube 3 Medical (three) Branch times daily for 30 days. ferrous 2020- No [id number] 300mg Take 5 mL Univers sulfate 300 11-09 through ity of mg (60 mg 00:00: 00:00 [place] iron)/5 mL 00 :00 tube every Med ical solution other day. Branc h escitalopra 2020- No 20mg Take 20 mg Univers m oxalate 4-27 04-27 by mouth ity o f 20 mg 19:31: 00:00 daily. [place] tablet 00 :00 [facility] Branch traZODone 100mg Take 100 Un michael 100 mg 11-08- mg by ity of tablet 19:31: 00:00 mouth at [place] 00 :00 bedtime. [facility] Branch escitalopra No 20mg Take 20 mg Univers m oxalate 11-08 by mouth ity o f 20 mg 19:31: 00:00 daily. [place] tablet 00 :00 [facility] Branch traZODone 2020- No 100mg Take 100 Un michael 100 mg 11-08- mg by ity of tablet 19:31: 00:00 mouth at [place] 00 :00 bedtime. [facility] Branch cranberry 2020- No 1{tbl} Take 1 Uni vers fruit 11-08 tablet by ity of (CRANBERRY) 19:30: 00:00 [place] 450 mg Tab 59 :00 daily. [facility] Branch cranberry 2020- No 1{tbl} Take 1 Uni vers fruit 11-08- tablet by ity of (CRANBERRY) 19:30: 00:00 [place] 450 mg Tab 59 :00 daily. Medical Branch sodium Yes 4mL 4 mL, Univers chloride 7% 11-08 Inhalation it y of (HYPER-JOSE) 14:45: , BID, [place] nebulizer 00 First dose Medi lizzy solution 4 on Sat [place] mL 11/08/20 at 0945, Until Discontinu ed, Routine lidocaine Yes 1{patch 1 Patch, U nivers (LIDODERM) 11-08 } Topical, ity o f 5 % (700 14:00: Administer You as mg/patch) 00 over 12 Medical patch 1 Hours, Branch Patch DAILY, First dose on Sat11/08/20 at 0900, Until Discontinu ed, Routine acetaminoph Yes [id number] 325mg Take 10.25 Univers en 160 mg/5 -27 mL through it y of mL liquid 00:00: enteral [place] 00 tube every Medical 6 (six) Branch hours as needed (pain, fever). metoprolol Yes [id number] 100mg Take 10 mL Univers 10 mg/mL 4-27 through ity of 00:00: enteral [place] 00 tube every Medical 12 Branch (twelve) hours. pantoprazol 0 Yes [id number] 40mg Take 2 Univers e 20 mg EC 4-27 tablets by ity of tablet 00:00: mouth [place] 00 daily. Medical Branch pantoprazol 0 Yes [id number] 40mg Take 20 mL Univers e 4-27 through ity of (PROTONIX) 00:00: [place] 2 mg/mL 00 tube Medical oral daily. Branch suspension amLODIPine Yes [id number] 5mg Take 1 Univers 5 mg tablet 4-27 tablet ity of 00:00: through [place] 00 enteral Medical tube Branch daily. calcitrioL Yes [id number] .5ug Take 1 Univers 0.5 mcg 4-27 capsule by ity of capsule 00:00: mouth [place] 00 daily. Medical Branch clopidogreL 0 Yes [id number] 75mg Take 1 Univers 75 mg 4-27 tablet ity of tablet 00:00: through [place] 00 enteral Medical tube Branch daily. escitalopra Yes [id number] 20mg Take 1 Univers m oxalate 4-27 tablet ity of 20 mg 00:00: through [facility] 00 enteral Medical tube Branch daily. furosemide 0 Yes [id number] 40mg Take 1 Univers 40 mg 4-27 tablet by ity of tablet 00:00: mouth [place] 00 every Medical morning Branch and evening. metFORMIN 0 Yes [id number] 500mg Take 1 Univers 500 mg 4-27 tablet ity of tablet 00:00: through [place] 00 enteral Medical tube 2 Branch (two) times daily with meals. ondansetron 0 Yes [id number] 4mg Take 1 Univers (ZOFRAN 4-27 tablet by ity of ODT) 4 mg 00:00: mouth [place] disintegrat 00 every 8 Medic al ing tablet (eight) Branch hours as needed for Nausea and Vomiting (N/V). traZODone 0 Yes [id number] 100mg Take 1 Univers 100 mg 4-27 tablet ity of tablet 00:00: through [place] 00 enteral Medical tube at Branch bedtime. aspirin 81 0 Yes [id number] 81mg Take 1 [facility] mg chewable 4-27 tablet ity of tablet 00:00: through enteral Medical tube Branch daily. atorvastati 2020-0 Yes [id number] 80mg Take 1 [facility] n 80 mg 4-27 tablet ity of tablet 00:00: through enteral Medical tube at Branch bedtime. gabapentin 2020-0 Yes [id number] 300mg Take 6 mL [facility] 250 mg/5 mL 4-27 through ity o f solution 00:00: enteral 00 tube 3 Medical (three) Branch times daily. ipratropium 2020-0 Yes [id number] 3mL Inhale 3 [facility] -albuteroL 4-27 mL every 6 ity of 0.5 mg-3 00:00: (six) [place] mg(2.5 mg 00 hours as Medica l base)/3 mL needed for [facility] nebulizer Wheezing solution or Shortness of Breath. acetaminoph 2020-0 Yes [id number] 325mg Take 10.25 [facility] en 160 mg/5 4-27 mL through it y of mL liquid 00:00: enteral 00 tube every Medical 6 (six) Branch hours as needed (pain, fever). metoprolol 2020-0 Yes [id number] 100mg Take 10 mL [facility] 10 mg/mL 4-27 through ity of 00:00: enteral 00 tube every Medical 12 Branch (twelve) hours. pantoprazol 2020-0 Yes [id number] 40mg Take 2 [facility] e 20 mg EC 4-27 tablets by ity of tablet 00:00: mouth daily. Medical Branch amLODIPine 2020-0 Yes [id number] 5mg Take 1 [facility] 5 mg tablet 4-27 tablet ity of 00:00: through enteral Medical tube Branch daily. calcitrioL 2020-0 Yes [id number] .5ug Take 1 [facility] 0.5 mcg 4-27 capsule by ity of capsule 00:00: mouth daily. Medical Branch clopidogreL 2020-0 Yes [id number] 75mg Take 1 [facility] 75 mg 4-27 tablet ity of tablet 00:00: through enteral Medical tube Branch daily. escitalopra 2020-0 Yes [id number] 20mg Take 1 [facility] m oxalate 4-27 tablet ity of 20 mg 00:00: through [place] tablet 00 enteral Medical tube Branch daily. furosemide 2020-0 Yes [id number] 40mg Take 1 [facility] 40 mg 4-27 tablet by ity of tablet 00:00: mouth [place] 00 every Medical morning Branch and evening. metFORMIN 2020-0 Yes [id number] 500mg Take 1 [facility] 500 mg 4-27 tablet ity of tablet 00:00: through [place] 00 enteral Medical tube 2 Branch (two) times daily with meals. ondansetron 2020-0 Yes [id number] 4mg Take 1 [facility] (ZOFRAN 4-27 tablet by ity of ODT) 4 mg 00:00: mouth [place] disintegrat 00 every 8 Medic al ing tablet (eight) Branch hours as needed for Nausea and Vomiting (N/V). traZODone 2020-0 Yes [id number] 100mg Take 1 [facility] 100 mg 4-27 tablet ity of tablet 00:00: through [place] 00 enteral Medical tube at Branch bedtime. aspirin 81 2020-0 Yes [id number] 81mg Take 1 [facility] mg chewable 4-27 tablet ity of tablet 00:00: through [place] 00 enteral Medical tube Branch daily. atorvastati 2020-0 Yes [id number] 80mg Take 1 [facility] n 80 mg 4-27 tablet ity of tablet 00:00: through [place] 00 enteral Medical tube at Branch bedtime. ipratropium 2020-0 Yes [id number] 3mL Inhale 3 [facility] -albuteroL 4-27 mL every 6 ity of 0.5 mg-3 00:00: (six) [place] mg(2.5 mg 00 hours as Medica l base)/3 mL needed for [facility] nebulizer Wheezing solution or Shortness of Breath. acetaminoph 2020-0 Yes [id number] 325mg Take 10.25 [facility] en 160 mg/5 4-27 mL through it y of mL liquid 00:00: enteral [place] 00 tube every Medical 6 (six) Branch hours as needed (pain, fever). metoprolol 2020-0 Yes [id number] 100mg Take 10 mL [facility] 10 mg/mL 4-27 through ity of 00:00: enteral [place] 00 tube every Medical 12 Branch (twelve) hours. pantoprazol 2020-0 Yes [id number] 40mg Take 2 [facility] e 20 mg EC 4-27 tablets by ity of tablet 00:00: mouth [place] 00 daily. Medical Branch amLODIPine 2020-0 Yes [id number] 5mg Take 1 [facility] 5 mg tablet 4-27 tablet ity of 00:00: through [place] enteral Medical tube Branch daily. calcitrioL 2020-0 Yes [id number] .5ug Take 1 [facility] 0.5 mcg 4-27 capsule by ity of capsule 00:00: mouth [place] 00 daily. Medical Branch clopidogreL 2020-0 Yes [id number] 75mg Take 1 [facility] 75 mg 4-27 tablet ity of tablet 00:00: through [place] enteral Medical tube Branch daily. escitalopra 2020-0 Yes [id number] 20mg Take 1 [facility] m oxalate 4-27 tablet ity of 20 mg 00:00: through [facility] 00 enteral Medical tube Branch daily. furosemide 0 Yes [id number] 40mg Take 1 [facility] 40 mg 4-27 tablet by ity of tablet 00:00: mouth [place] 00 every Medical morning Branch and evening. metFORMIN 0 Yes [id number] 500mg Take 1 [facility] 500 mg 4-27 tablet ity of tablet 00:00: through [place] enteral Medical tube 2 Branch (two) times daily with meals. ondansetron 0 Yes [id number] 4mg Take 1 [facility] (ZOFRAN 4-27 tablet by ity of ODT) 4 mg 00:00: mouth [place] disintegrat 00 every 8 Medic al ing tablet (eight) Branch hours as needed for Nausea and Vomiting (N/V). traZODone 0 Yes [id number] 100mg Take 1 [facility] 100 mg 4-27 tablet ity of tablet 00:00: through [place] enteral Medical tube at Branch bedtime. aspirin 81 2020-0 Yes [id number] 81mg Take 1 [facility] mg chewable 4-27 tablet ity of tablet 00:00: through [place] 00 enteral Medical tube Branch daily. atorvastati 2020-0 Yes [id number] 80mg Take 1 [facility] n 80 mg 4-27 tablet ity of tablet 00:00: through [place] enteral Medical tube at Branch bedtime. ipratropium 0 Yes [id number] 3mL Inhale 3 [facility] -albuteroL 4-27 mL every 6 ity of 0.5 mg-3 00:00: (six) [place] mg(2.5 mg 00 hours as Medica l base)/3 mL needed for [facility] nebulizer Wheezing solution or Shortness of Breath. acetaminoph Yes [id number] 325mg Take 10.25 [facility] en 160 mg/5 4-27 mL through it y of mL liquid 00:00: enteral [place] 00 tube every Medical 6 (six) Branch hours as needed (pain, fever). pantoprazol Yes [id number] 40mg Take 2 [facility] e 20 mg EC 4-27 tablets by ity of tablet 00:00: mouth [place] 00 daily. Medical Branch amLODIPine Yes [id number] 5mg Take 1 [facility] 5 mg tablet 4-27 tablet ity of 00:00: through [place] 00 enteral Medical tube Branch daily. calcitrioL Yes [id number] .5ug Take 1 [facility] 0.5 mcg 4-27 capsule by ity of capsule 00:00: mouth [place] 00 daily. Medical Branch clopidogreL Yes [id number] 75mg Take 1 [facility] 75 mg 4-27 tablet ity of tablet 00:00: through [place] 00 enteral Medical tube Branch daily. escitalopra Yes [id number] 20mg Take 1 [facility] m oxalate 4-27 tablet ity of 20 mg 00:00: through [facility] 00 enteral Medical tube Branch daily. furosemide Yes [id number] 40mg Take 1 [facility] 40 mg 4-27 tablet by ity of tablet 00:00: mouth [place] 00 every Medical morning Branch and evening. metFORMIN Yes [id number] 500mg Take 1 [facility] 500 mg 4-27 tablet ity of tablet 00:00: through [place] 00 enteral Medical tube 2 Branch (two) times daily with meals. ondansetron Yes [id number] 4mg Take 1 [facility] (ZOFRAN 4-27 tablet by ity of ODT) 4 mg 00:00: mouth [place] disintegrat 00 every 8 Medic al ing tablet (eight) Branch hours as needed for Nausea and Vomiting (N/V). traZODone Yes [id number] 100mg Take 1 [facility] 100 mg 4-27 tablet ity of tablet 00:00: through [place] 00 enteral Medical tube at Branch bedtime. aspirin 81 0 Yes [id number] 81mg Take 1 [facility] mg chewable 4-27 tablet ity of tablet 00:00: through [place] enteral Medical tube Branch daily. atorvastati 2020-0 Yes [id number] 80mg Take 1 [facility] n 80 mg 4-27 tablet ity of tablet 00:00: through 00 enteral Medical tube at Branch bedtime. ipratropium 2020-0 Yes [id number] 3mL Inhale 3 [facility] -albuteroL 4-27 mL every 6 ity of 0.5 mg-3 00:00: (six) [place] mg(2.5 mg 00 hours as Medica l base)/3 mL needed for [facility] nebulizer Wheezing solution or Shortness of Breath. acetaminoph 2020- Yes [id number] 325mg Take 10.25 [facility] en 160 mg/5 4-27 mL through it y of mL liquid 00:00: enteral [place] 00 tube every Medical 6 (six) Branch hours as needed (pain, fever). pantoprazol 0 Yes [id number] 40mg Take 2 [facility] e 20 mg EC 4-27 tablets by ity of tablet 00:00: mouth daily. Medical Branch amLODIPine 2020-0 Yes [id number] 5mg Take 1 [facility] 5 mg tablet 4-27 tablet ity of 00:00: through [place] enteral Medical tube Branch daily. calcitrioL 2020-0 Yes [id number] .5ug Take 1 [facility] 0.5 mcg 4-27 capsule by ity of capsule 00:00: mouth [place] daily. Medical Branch clopidogreL 2020-0 Yes [id number] 75mg Take 1 [facility] 75 mg 4-27 tablet ity of tablet 00:00: through [place] enteral Medical tube Branch daily. escitalopra 2020-0 Yes [id number] 20mg Take 1 [facility] m oxalate 4-27 tablet ity of 20 mg 00:00: through [place] tablet 00 enteral Medical tube Branch daily. furosemide 2020-0 Yes [id number] 40mg Take 1 [facility] 40 mg 4-27 tablet by ity of tablet 00:00: mouth [place] 00 every Medical morning Branch and evening. metFORMIN 2020-0 Yes [id number] 500mg Take 1 [facility] 500 mg 4-27 tablet ity of tablet 00:00: through [place] enteral Medical tube 2 Branch (two) times daily with meals. ondansetron 2020-0 Yes [id number] 4mg Take 1 [facility] (ZOFRAN 4-27 tablet by ity of ODT) 4 mg 00:00: mouth [place] disintegrat 00 every 8 Medic al ing tablet (eight) Branch hours as needed for Nausea and Vomiting (N/V). traZODone 0 Yes [id number] 100mg Take 1 [facility] 100 mg 4-27 tablet ity of tablet 00:00: through enteral Medical tube at Branch bedtime. aspirin 81 2020-0 Yes [id number] 81mg Take 1 [facility] mg chewable 4-27 tablet ity of tablet 00:00: through enteral Medical tube Branch daily. atorvastati 0 Yes [id number] 80mg Take 1 [facility] n 80 mg 4-27 tablet ity of tablet 00:00: through enteral Medical tube at Branch bedtime. ipratropium 0 Yes [id number] 3mL Inhale 3 [facility] -albuteroL 4-27 mL every 6 ity of 0.5 mg-3 00:00: (six) [place] mg(2.5 mg 00 hours as Medica l base)/3 mL needed for [facility] nebulizer Wheezing solution or Shortness of Breath. acetaminoph 0 Yes [id number] 325mg Take 10.25 [facility] en 160 mg/5 4-27 mL through it y of mL liquid 00:00: enteral [place] 00 tube every Medical 6 (six) Branch hours as needed (pain, fever). pantoprazol 0 Yes [id number] 40mg Take 2 [facility] e 20 mg EC 4-27 tablets by ity of tablet 00:00: mouth 00 daily. Medical Branch amLODIPine 2020-0 Yes [id number] 5mg Take 1 [facility] 5 mg tablet 4-27 tablet ity of 00:00: through enteral Medical tube Branch daily. calcitrioL 2020-0 Yes [id number] .5ug Take 1 [facility] 0.5 mcg 4-27 capsule by ity of capsule 00:00: mouth 00 daily. Medical Branch clopidogreL 2020-0 Yes [id number] 75mg Take 1 [facility] 75 mg 4-27 tablet ity of tablet 00:00: through enteral Medical tube Branch daily. escitalopra 2020-0 Yes [id number] 20mg Take 1 [facility] m oxalate 4-27 tablet ity of 20 mg 00:00: through [place] tablet 00 enteral Medical tube Branch daily. furosemide 2020-0 Yes [id number] 40mg Take 1 [facility] 40 mg 4-27 tablet by ity of tablet 00:00: mouth [place] 00 every Medical morning Branch and evening. metFORMIN 2020-0 Yes [id number] 500mg Take 1 [facility] 500 mg 4-27 tablet ity of tablet 00:00: through [place] 00 enteral Medical tube 2 Branch (two) times daily with meals. ondansetron 0 Yes [id number] 4mg Take 1 [facility] (ZOFRAN 4-27 tablet by ity of ODT) 4 mg 00:00: mouth [place] disintegrat 00 every 8 Medic al ing tablet (eight) Branch hours as needed for Nausea and Vomiting (N/V). traZODone 0 Yes [id number] 100mg Take 1 [facility] 100 mg 4-27 tablet ity of tablet 00:00: through [place] 00 enteral Medical tube at Branch bedtime. aspirin 81 0 Yes [id number] 81mg Take 1 [facility] mg chewable 4-27 tablet ity of tablet 00:00: through [place] 00 enteral Medical tube Branch daily. atorvastati 0 Yes [id number] 80mg Take 1 [facility] n 80 mg 4-27 tablet ity of tablet 00:00: through [place] 00 enteral Medical tube at Branch bedtime. ipratropium 0 Yes [id number] 3mL Inhale 3 [facility] -albuteroL 4-27 mL every 6 ity of 0.5 mg-3 00:00: (six) [place] mg(2.5 mg 00 hours as Medica l base)/3 mL needed for [facility] nebulizer Wheezing solution or Shortness of Breath. acetaminoph 0 Yes [id number] 325mg Take 10.25 [facility] en 160 mg/5 4-27 mL through it y of mL liquid 00:00: enteral [place] 00 tube every Medical 6 (six) Branch hours as needed (pain, fever). pantoprazol 0 Yes [id number] 40mg Take 2 [facility] e 20 mg EC 4-27 tablets by ity of tablet 00:00: mouth [place] 00 daily. Medical Branch amLODIPine 0 Yes [id number] 5mg Take 1 [facility] 5 mg tablet 4-27 tablet ity of 00:00: through [place] 00 enteral Medical tube Branch daily. calcitrioL 0 Yes [id number] .5ug Take 1 [facility] 0.5 mcg 4-27 capsule by ity of capsule 00:00: mouth [place] 00 daily. Medical Branch clopidogreL 2020-0 Yes [id number] 75mg Take 1 [facility] 75 mg 4-27 tablet ity of tablet 00:00: through [place] 00 enteral Medical tube Branch daily. escitalopra Yes [id number] 20mg Take 1 [facility] m oxalate 4-27 tablet ity of 20 mg 00:00: through [place] tablet 00 enteral Medical tube Branch daily. furosemide Yes [id number] 40mg Take 1 [facility] 40 mg 4-27 tablet by ity of tablet 00:00: mouth [place] 00 every Medical morning Branch and evening. metFORMIN Yes [id number] 500mg Take 1 [facility] 500 mg 4-27 tablet ity of tablet 00:00: through [place] enteral Medical tube 2 Branch (two) times daily with meals. ondansetron Yes [id number] 4mg Take 1 [facility] (ZOFRAN 4-27 tablet by ity of ODT) 4 mg 00:00: mouth [place] disintegrat 00 every 8 Medic al ing tablet (eight) Branch hours as needed for Nausea and Vomiting (N/V). traZODone Yes [id number] 100mg Take 1 [facility] 100 mg 4-27 tablet ity of tablet 00:00: through [place] 00 enteral Medical tube at [place] bedtime. aspirin 81 0 Yes [id number] 81mg Take 1 [facility] mg chewable 4-27 tablet ity of tablet 00:00: through [place] 00 enteral Medical tube Branch daily. atorvastati Yes [id number] 80mg Take 1 [facility] n 80 mg 4-27 tablet ity of tablet 00:00: through [place] 00 enteral Medical tube at [place] bedtime. ipratropium 0 Yes [id number] 3mL Inhale 3 [facility] -albuteroL 4-27 mL every 6 ity of 0.5 mg-3 00:00: (six) [place] mg(2.5 mg 00 hours as Medica l base)/3 mL needed for [facility] nebulizer Wheezing solution or Shortness of Breath. acetaminoph Yes [id number] 325mg Take 10.25 [facility] en 160 mg/5 4-27 mL through it y of mL liquid 00:00: enteral [place] 00 tube every Medical 6 (six) Branch hours as needed (pain, fever). pantoprazol Yes [id number] 40mg Take 2 [facility] e 20 mg EC 4-27 tablets by ity of tablet 00:00: mouth [place] 00 daily. Medical Branch amLODIPine Yes [id number] 5mg Take 1 [facility] 5 mg tablet 4-27 tablet ity of 00:00: through [place] 00 enteral Medical tube Branch daily. calcitrioL Yes [id number] .5ug Take 1 [facility] 0.5 mcg 4-27 capsule by ity of capsule 00:00: mouth [place] 00 daily. Medical Branch clopidogreL Yes [id number] 75mg Take 1 [facility] 75 mg 4-27 tablet ity of tablet 00:00: through [place] 00 enteral Medical tube Branch daily. escitalopra Yes [id number] 20mg Take 1 [facility] m oxalate 4-27 tablet ity of 20 mg 00:00: through [facility] 00 enteral Medical tube Branch daily. furosemide Yes [id number] 40mg Take 1 [facility] 40 mg 4-27 tablet by ity of tablet 00:00: mouth [place] 00 every Medical morning Branch and evening. metFORMIN Yes [id number] 500mg Take 1 [facility] 500 mg 4-27 tablet ity of tablet 00:00: through [place] 00 enteral Medical tube 2 Branch (two) times daily with meals. ondansetron Yes [id number] 4mg Take 1 [facility] (ZOFRAN 4-27 tablet by ity of ODT) 4 mg 00:00: mouth [place] disintegrat 00 every 8 Medic al ing tablet (eight) Branch hours as needed for Nausea and Vomiting (N/V). traZODone Yes [id number] 100mg Take 1 [facility] 100 mg 4-27 tablet ity of tablet 00:00: through [place] 00 enteral Medical tube at Branch bedtime. aspirin 81 Yes [id number] 81mg Take 1 [facility] mg chewable 4-27 tablet ity of tablet 00:00: through [place] 00 enteral Medical tube Branch daily. atorvastati Yes [id number] 80mg Take 1 [facility] n 80 mg 4-27 tablet ity of tablet 00:00: through [place] 00 enteral Medical tube at Branch bedtime. ipratropium 2020-0 Yes [id number] 3mL Inhale 3 [facility] -albuteroL 4-27 mL every 6 ity of 0.5 mg-3 00:00: (six) [place] mg(2.5 mg 00 hours as Medica l base)/3 mL needed for [facility] nebulizer Wheezing solution or Shortness of Breath. acetaminoph 2020-0 Yes [id number] 325mg Take 10.25 [facility] en 160 mg/5 4-27 mL through it y of mL liquid 00:00: enteral [place] 00 tube every Medical 6 (six) Branch hours as needed (pain, fever). pantoprazol 2020-0 Yes [id number] 40mg Take 2 [facility] e 20 mg EC 4-27 tablets by ity of tablet 00:00: mouth [place] 00 daily. Medical Branch amLODIPine 2020-0 Yes [id number] 5mg Take 1 [facility] 5 mg tablet 4-27 tablet ity of 00:00: through [place] 00 enteral Medical tube Branch daily. calcitrioL 2020-0 Yes [id number] .5ug Take 1 [facility] 0.5 mcg 4-27 capsule by ity of capsule 00:00: mouth [place] 00 daily. Medical Branch clopidogreL 2020-0 Yes [id number] 75mg Take 1 [facility] 75 mg 4-27 tablet ity of tablet 00:00: through [place] 00 enteral Medical tube Branch daily. escitalopra 2020-0 Yes [id number] 20mg Take 1 [facility] m oxalate 4-27 tablet ity of 20 mg 00:00: through [facility] 00 enteral Medical tube Branch daily. furosemide 2020-0 Yes [id number] 40mg Take 1 [facility] 40 mg 4-27 tablet by ity of tablet 00:00: mouth [place] 00 every Medical morning Branch and evening. metFORMIN 2020-0 Yes [id number] 500mg Take 1 [facility] 500 mg 4-27 tablet ity of tablet 00:00: through [place] 00 enteral Medical tube 2 Branch (two) times daily with meals. ondansetron 2020-0 Yes [id number] 4mg Take 1 [facility] (ZOFRAN 4-27 tablet by ity of ODT) 4 mg 00:00: mouth [place] disintegrat 00 every 8 Medic al ing tablet (eight) Branch hours as needed for Nausea and Vomiting (N/V). traZODone 0 Yes [id number] 100mg Take 1 [facility] 100 mg 4-27 tablet ity of tablet 00:00: through enteral Medical tube at Branch bedtime. aspirin 81 2020-0 Yes [id number] 81mg Take 1 [facility] mg chewable 4-27 tablet ity of tablet 00:00: through [place] enteral Medical tube Branch daily. atorvastati 0 Yes [id number] 80mg Take 1 [facility] n 80 mg 4-27 tablet ity of tablet 00:00: through [place] enteral Medical tube at Branch bedtime. ipratropium 0 Yes [id number] 3mL Inhale 3 [facility] -albuteroL 4-27 mL every 6 ity of 0.5 mg-3 00:00: (six) [place] mg(2.5 mg 00 hours as Medica l base)/3 mL needed for [facility] nebulizer Wheezing solution or Shortness of Breath. acetaminoph Yes [id number] 325mg Take 10.25 [facility] en 160 mg/5 4-27 mL through it y of mL liquid 00:00: enteral [place] 00 tube every Medical 6 (six) Branch hours as needed (pain, fever). pantoprazol 0 Yes [id number] 40mg Take 2 [facility] e 20 mg EC 4-27 tablets by ity of tablet 00:00: mouth daily. Medical Branch amLODIPine 2020-0 Yes [id number] 5mg Take 1 [facility] 5 mg tablet 4-27 tablet ity of 00:00: through [place] enteral Medical tube Branch daily. calcitrioL 2020-0 Yes [id number] .5ug Take 1 [facility] 0.5 mcg 4-27 capsule by ity of capsule 00:00: mouth daily. Medical Branch clopidogreL 0 Yes [id number] 75mg Take 1 [facility] 75 mg 4-27 tablet ity of tablet 00:00: through enteral Medical tube Branch daily. escitalopra 0 Yes [id number] 20mg Take 1 [facility] m oxalate 4-27 tablet ity of 20 mg 00:00: through [facility] 00 enteral Medical tube Branch daily. furosemide 0 Yes [id number] 40mg Take 1 [facility] 40 mg 4-27 tablet by ity of tablet 00:00: mouth [place] 00 every Medical morning Branch and evening. metFORMIN 2020-0 Yes [id number] 500mg Take 1 [facility] 500 mg 4-27 tablet ity of tablet 00:00: through [place] 00 enteral Medical tube 2 Branch (two) times daily with meals. ondansetron 2020-0 Yes [id number] 4mg Take 1 [facility] (ZOFRAN 4-27 tablet by ity of ODT) 4 mg 00:00: mouth [place] disintegrat 00 every 8 Medic al ing tablet (eight) Branch hours as needed for Nausea and Vomiting (N/V). traZODone 0 Yes [id number] 100mg Take 1 [facility] 100 mg 4-27 tablet ity of tablet 00:00: through [place] 00 enteral Medical tube at Branch bedtime. aspirin 81 2020-0 Yes [id number] 81mg Take 1 [facility] mg chewable 4-27 tablet ity of tablet 00:00: through [place] 00 enteral Medical tube Branch daily. atorvastati 0 Yes [id number] 80mg Take 1 [facility] n 80 mg 4-27 tablet ity of tablet 00:00: through [place] 00 enteral Medical tube at Branch bedtime. ipratropium 0 Yes [id number] 3mL Inhale 3 [facility] -albuteroL 4-27 mL every 6 ity of 0.5 mg-3 00:00: (six) [place] mg(2.5 mg 00 hours as Medica l base)/3 mL needed for [facility] nebulizer Wheezing solution or Shortness of Breath. acetaminoph 2020-0 Yes [id number] 325mg Take 10.25 [facility] en 160 mg/5 4-27 mL through it y of mL liquid 00:00: enteral [place] 00 tube every Medical 6 (six) Branch hours as needed (pain, fever). pantoprazol 2020-0 Yes [id number] 40mg Take 2 [facility] e 20 mg EC 4-27 tablets by ity of tablet 00:00: mouth [place] 00 daily. Medical Branch amLODIPine 2020-0 Yes [id number] 5mg Take 1 [facility] 5 mg tablet 4-27 tablet ity of 00:00: through [place] 00 enteral Medical tube Branch daily. calcitrioL 2020-0 Yes [id number] .5ug Take 1 [facility] 0.5 mcg 4-27 capsule by ity of capsule 00:00: mouth [place] 00 daily. Medical Branch clopidogreL 2020-0 Yes [id number] 75mg Take 1 [facility] 75 mg 4-27 tablet ity of tablet 00:00: through [place] 00 enteral Medical tube Branch daily. escitalopra 2020-0 Yes [id number] 20mg Take 1 [facility] m oxalate 4-27 tablet ity of 20 mg 00:00: through [facility] 00 enteral Medical tube Branch daily. furosemide 2020-0 Yes [id number] 40mg Take 1 [facility] 40 mg 4-27 tablet by ity of tablet 00:00: mouth [place] 00 every Medical morning Branch and evening. metFORMIN 2020-0 Yes [id number] 500mg Take 1 [facility] 500 mg 4-27 tablet ity of tablet 00:00: through [place] enteral Medical tube 2 Branch (two) times daily with meals. ondansetron 2020-0 Yes [id number] 4mg Take 1 [facility] (ZOFRAN 4-27 tablet by ity of ODT) 4 mg 00:00: mouth [place] disintegrat 00 every 8 Medic al ing tablet (eight) Branch hours as needed for Nausea and Vomiting (N/V). traZODone 0 Yes [id number] 100mg Take 1 [facility] 100 mg 4-27 tablet ity of tablet 00:00: through [place] enteral Medical tube at Branch bedtime. aspirin 81 2020-0 Yes [id number] 81mg Take 1 [facility] mg chewable 4-27 tablet ity of tablet 00:00: through [place] 00 enteral Medical tube Branch daily. atorvastati 2020-0 Yes [id number] 80mg Take 1 [facility] n 80 mg 4-27 tablet ity of tablet 00:00: through 00 enteral Medical tube at Branch bedtime. ipratropium 2020-0 Yes [id number] 3mL Inhale 3 [facility] -albuteroL 4-27 mL every 6 ity of 0.5 mg-3 00:00: (six) [place] mg(2.5 mg 00 hours as Medica l base)/3 mL needed for [facility] nebulizer Wheezing solution or Shortness of Breath. acetaminoph 2020-0 Yes [id number] 325mg Take 10.25 [facility] en 160 mg/5 4-27 mL through it y of mL liquid 00:00: enteral [place] 00 tube every Medical 6 (six) Branch hours as needed (pain, fever). pantoprazol 0 Yes [id number] 40mg Take 2 [facility] e 20 mg EC 4-27 tablets by ity of tablet 00:00: mouth [place] 00 daily. Medical Branch amLODIPine 0 Yes [id number] 5mg Take 1 [facility] 5 mg tablet 4-27 tablet ity of 00:00: through [place] enteral Medical tube Branch daily. calcitrioL 2020-0 Yes [id number] .5ug Take 1 [facility] 0.5 mcg 4-27 capsule by ity of capsule 00:00: mouth [place] 00 daily. Medical Branch clopidogreL 0 Yes [id number] 75mg Take 1 [facility] 75 mg 4-27 tablet ity of tablet 00:00: through [place] enteral Medical tube Branch daily. escitalopra 0 Yes [id number] 20mg Take 1 [facility] m oxalate 4-27 tablet ity of 20 mg 00:00: through [place] [address] enteral Medical tube Branch daily. furosemide Yes [id number] 40mg Take 1 [facility] 40 mg 4-27 tablet by ity of tablet 00:00: mouth [place] 00 every Medical morning Branch and evening. metFORMIN 0 Yes [id number] 500mg Take 1 [facility] 500 mg 4-27 tablet ity of tablet 00:00: through [place] 00 enteral Medical tube 2 Branch (two) times daily with meals. ondansetron 0 Yes [id number] 4mg Take 1 [facility] (ZOFRAN 4-27 tablet by ity of ODT) 4 mg 00:00: mouth [place] disintegrat 00 every 8 Medic al ing tablet (eight) Branch hours as needed for Nausea and Vomiting (N/V). traZODone 0 Yes [id number] 100mg Take 1 [facility] 100 mg 4-27 tablet ity of tablet 00:00: through [place] 00 enteral Medical tube at Branch bedtime. aspirin 81 2020-0 Yes [id number] 81mg Take 1 [facility] mg chewable 4-27 tablet ity of tablet 00:00: through [place] 00 enteral Medical tube Branch daily. atorvastati 2020-0 Yes [id number] 80mg Take 1 Univers n 80 mg 4-27 tablet ity of tablet 00:00: through [place] 00 enteral Medical tube at Branch bedtime. ipratropium Yes [id number] 3mL Inhale 3 Univers -albuteroL 4-27 mL every 6 ity of 0.5 mg-3 00:00: (six) [place] mg(2.5 mg 00 hours as Medica l base)/3 mL needed for Bra [facility] nebulizer Wheezing solution or Shortness of Breath. metoprolol 2020- No [id number] 100mg Take 10 mL Univers 10 mg/mL 11-08 through ity of 00:00: 00:00 enteral [place] 00 :00 tube every Medical 12 Branch (twelve) hours. metoprolol 2020- No [id number] 100mg Take 10 mL Univers 10 mg/mL 11-08- through ity of 00:00: 00:00 enteral [place] 00 :00 tube every Medical 12 Branch (twelve) hours. pantoprazol 2020- No [id number] 40mg Take 20 mL Univers e 11-08 through ity of (PROTONIX) 00:00: 00:00 enteral You as 2 mg/mL 00 :00 tube Medical oral daily. Branch suspension gabapentin 2020- No [id number] 300mg Take 6 mL Univers 250 mg/5 [...] Until Discontinu ed, Routine iohexoL 2020- No [id number] 35mL 35 mL, Uni vers (OMNIPAQUE 11-07- Injection, it y of 300-50 mL)) 20:40: [...] 20:27: Mon [place] injection 00 11/07/20 at [facility] 1527, Branch Until Discontinu ed, Routine iohexol 2020- No [id number] 100mL 100 mL, Univers (OMNIPAQUE 11-07 Oral, ity of 350 BULK) 14:45: 14:00 ONCE, 1 [place] 100 mL 00 :00 dose, [facility] Medical 11/07/20 at Branch 0945, KATHY gabapentin Yes 300mg 300 mg, Uni vers (NEURONTIN) 11-06 Enteral, ity of 250 mg/5 mL 01:00: TID, First [place] solution 00 dose on Medical 300 mg Sat [place] 11/05/20 at 2000, Until Discontinu ed, Routine HYDROcodone 2020- No 5mg 5 mg, Univ ers -acetaminop 11-05 Oral, ity of hen (HYCET) 20:07: 20:37 ONCE, 1 [place] 7.5-325 00 :00 dose, Sat Medical mg/15 mL 11/05/20 at [facility] h solution 5 1515, mg Routine acetaminoph Yes 325mg 325 mg, Un michael en 11-05 Enteral, ity of (TYLENOL) 20:06: Q6HPRN, [place] 160 mg/5 mL 54 Starting [facility] liquid 325 Sat [place] mg 11/05/20 at 1506, Until Discontinu ed, Routine, pain, fever Potassium 2020-2020- No 20meq 20 mEq, Uni vers Bicarb-Citr 11-05 Enteral, ity of ic Acid 11:45: 14:22 ONCE, 1 [place] (EFFER-K) 00 :00 dose, Sat Medic al effervescen 11/05/20 at anch t tablet 20 0645, mEq Routine furosemide 2020- No 20mg 20 mg, Univ ers (LASIX) 11-04 Slow IV ity of injection 22:00: 23:28 Push, [place] 20 mg 00 :00 ONCE, 1 Medical dose, Sat [place] 11/04/20 at 1700, Routine metoprolol No 75mg 75 mg, Univ ers (LOPRESSOR) 11-04 Enteral, ity of 10 mg/mL 21:15: 18:40 Q12H ABX, You as oral 00 :26 First dose Medical suspension (after Branch 75 mg last modificati on) on Sat11/04/20 at 1615, Until Discontinu ed, Routine iohexol 2020- No [id number] 25mL 25 mL, Un michael (OMNIPAQUE 11-04 Oral, ity of 350 BULK) 14:30: 14:40 ONCE, 1 [place] 25 mL 00 :00 dose, [facility] 11/04/20 at Branch 0930, KATHY cranberry Yes 1{tbl} Take 1 Univ ers fruit 11-03 tablet by ity of (CRANBERRY) 23:40: mouth [place] 450 mg Tab 55 daily. Medical Branch furosemide No 20mg 20 mg, Univ ers (LASIX) 11-03 Slow IV ity of injection 21:58: 22:08 Push, [place] 20 mg 00 :00 ONCE, 1 Medical dose, [facility] 11/03/20 at 1700, Routine metoprolol No 75mg 75 mg, Univ ers (LOPRESSOR) 11-03 Enteral, ity of 10 mg/mL 01:00: 11:44 BID, First [place] oral 00 :22 dose Medical suspension (after Branch 75 mg last modificati on) on [facility] 11/02/20 at 2000, Until Discontinu ed, Routine lactulose 2020- No 15mL 15 mL, Unive rs (CEPHULAC) 11-03 Oral, BID, it y of solution 15 01:00: 02:18 First dose [place] mL 00 :17 on Sat [facility] 11/02/20 at Branch 1999, Until Discontinu ed, Routine metOLazone 2020- No [...] of ic Acid 19:15: 20:52 ONCE, 1 [place] (EFFER-K) 00 :00 dose, Sat Medic al [...] Yes Topical, Un michael polymyxin B 11-01 [id number], ity of (POLYSPORIN 20:26: Starting [place] ) 41 Tue Medical 500-10,000 11/01/20 at [facility] unit/gram 1526, topical Until ointment Discontinu ed, Routine, rash Sliding 2020- No Subcutaneo Uni vers Scale 11-01 us, Q3H, ity of Insulin - 04:00: 04:13 First dose [place] Lispro 00 :59 (after Medical (HumaLOG) + last Branch Fsbg modificati Testing on) on Sat10/31/20 at 2300, Until Discontinu ed, Routine D5W IV 2020- No 1000mL at 70 Univers infusion 4-20 04-20 mL/hr, IV ity o f 1,000 mL 03:15: 13:03 Infusion, You as 00 :39 CONTINUOUS Medical , Starting Branch Sat10/31/20 at 2215, Until Sat11/01/20 at 0803, Routine insulin Yes 14U 14 Units, Unive rs glargine 10-31 Subcutaneo ity o f (LANTUS 14:00: us, DAILY, [place] U-100) 00 First dose Medical injection (after Branch 14 Units last modificati on) on Sat10/31/20 at 0900, Until Discontinu ed, Routine Potassium 2020- No 40meq 40 mEq, Uni vers Bicarb-Citr 10-31 Enteral, ity of ic Acid 13:15: 13:13 ONCE, 1 [place] (EFFER-K) 00 :00 dose, [facility] Medic al effervescen 10/31/20 at Br anch t tablet 40 0815, mEq Routine furosemide 2020- No 20mg 20 mg, Univ ers (LASIX) 10-31 Slow IV ity of injection 05:45: 08:40 Push, [place] 20 mg 00 :00 ONCE, 1 Medical dose, [facility] 10/31/20 at 0045, Routine insulin Yes 4U 4 Units, Univer s lispro 10-30 Subcutaneo ity of (human) 22:00: us, TID [place] (HumaLOG 00 MEALS, Medical U-100) First dose Branch injection 4 (after Units last modificati on) on [place] 10/30/20 at 1700, Until Discontinu ed, Routine Sliding 2020- No Subcutaneo Uni vers Scale 10-30 04-20 us, Q4H, ity of Insulin - 21:00: 02:25 First dose [place] Lispro 00 :53 on [facility] (HumaLOG) + 10/30/20 at Br anch Fsbg 1600, Testing Until Discontinu ed, Routine ferrous Yes 300mg 300 mg, Univer s sulfate 300 10-30 Enteral, Q it y of mg (60 mg 14:00: OTHERDAY, You as iron)/5 mL 00 First dose Med ical solution on [place] Branch 300 mg 10/30/20 at 0900, Until Discontinu ed, Routine insulin 2020- No 6U 6 Units, Unive rs glargine 10-30 Subcutaneo ity of (LANTUS 14:00: 19:53 us, DAILY, You as U-100) 00 :49 First dose Medical injection 6 (after Branch Units last modificati on) on [place] 10/30/20 at 0900, Until Discontinu ed, Routine metoprolol No 50mg 50 mg, Univ ers (LOPRESSOR) 10-30 Enteral, ity of 10 mg/mL 13:00: 16:55 BID, First [place] oral 00 :29 dose Medical suspension (after Branch 50 mg last modificati on) on [place] 10/30/20 at 0800, Until Discontinu ed, Routine insulin 2020- No 2U 2 Units, Unive rs lispro 10-30 Subcutaneo ity of (human) 13:00: 19:53 us, TID [place] (HumaLOG 00 :49 MEALS, Medical U-100) First dose Branch injection 2 on [place] Units 10/30/20 at 0800, Until Discontinu ed, Routine Potassium No 20meq 20 mEq, Uni vers Bicarb-Citr 10-30 Enteral, ity of ic Acid 07:15: 06:24 ONCE, 1 [place] (EFFER-K) 00 :00 dose, [place] Medic al effervescen 10/30/20 at Br anch [...] 2020- No 12U/kg/ 12 Univer s 25,000 10-29 h Units/kg/h ity of Units/250 14:54: 19:36 [...] No 250mL at 100 Uni vers (1/2NS) 10-29-18 mL/hr, 250 ity o f bolus 11:15: [...] 2330, 250 piggyback mL sulfur 2020- No [id number] 4mL 4 mL, Univ ers hexafluorid 10-28 Intravenou i ty of e microsphr 21:00: 21:00 s, ONCE, 1 [place] (LUMASON) 00 :00 dose, Fri Medic al injection 4 10/28/20 at Br anch mL 1600, Routine
member service representative approving Restricted medication : KISHORE ROSS SALAM sodium 2020- No 4mL 4 mL, Univers chloride 7% 10-28 Inhalation i ty of (HYPER-JOSE) 17:00: 14:40 , QID, You as nebulizer 00 :45 First dose Medi lizzy solution 4 (after Branch mL last modificati on) on Sat10/28/20 at 1200, Until Discontinu ed, Routine dextrose [...] at 0800, Until Discontinu ed, Routine metoprolol No 25mg 25 mg, Univ ers (LOPRESSOR) 10-27 Oral, BID, i ty of 10 mg/mL 13:00: 22:34 First dose [place] oral 00 :39 on [facility] Medical suspension 10/27/20 at [facility] 25 mg 0800, Until Discontinu ed, Routine furosemide No 20mg 20 mg, Univ ers (LASIX) 10-27 Slow IV ity of injection 06:45: 06:00 Push, ONCE [place] 20 mg 00 :00 NOW, 1 Medical dose, [facility] Branch 10/27/20 at 0145, Routine metoprolol 2020- No 2.5mg 2.5 mg, Un michael (LOPRESSOR) 10-27 Intravenou i ty of injection 05:00: 05:04 s, Q6H, 1 [place] 2.5 mg 00 :00 dose, Medical First dose Branch (after last modificati on) on [facility] 10/27/20 at 0000, Routine amLODIPine 2020- No 5mg 5 mg, Unive rs benzoate 10-27 Oral, ity of (KATERZIA) 02:15: 17:26 DAILY, [place] 1 mg/mL 00 :04 First dose Medica l oral on Sat Branch suspension 10/26/20 at 5 mg 2115, Until Discontinu ed, Routine traZODone 2021-0 2021- No 100mg 100 mg, Uni vers (COMPOUNDED 10-2716 Enteral, ity of ) oral 02:15: 13:45 QHS, First [place] suspension 00 :47 dose on Medica l 100 mg Sat10/26/20 at 2115, Until Discontinu ed, Routine D5W 0.45% 2020- No 1000mL at 200 Uni vers NaCl 10-27-15 mL/hr, ity of (1/2NS) IV 00:45: 11:20 [...] 1000mL at 200 Un michael (1/2NS) IV 10-26 04-14 mL/hr, ity of infusion 13:15: 17:00 1,000 mL, You as 1,000 mL 00 :00 IV Medical Infusion, Branch ONCE, 1 dose, Sat10/26/20 at 0815, Routine KCL No 30meq 30 mEq, IV Unive rs (POTASSIUM 10-26 Piggyback, it y of CHLORIDE) 12:30: 13:26 ONCE, 1 [place] 30 mEq in 00 :00 dose, Sat Medic al NaCl 0.9% 10/26/20 at Bran ch (NS) 0730, 250 piggyback mL metoprolol No 2.5mg 2.5 mg, Un michael (LOPRESSOR) 10-25 Intravenou i ty of injection 23:00: 02:04 s, Q6H, [place] 2.5 mg 00 :18 First dose Medical (after Branch last modificati on) on Sat10/25/20 at 1800, Until Discontinu ed, Routine metoprolol 2020- No 5mg 5 mg, [facility] rs (LOPRESSOR) 10-25 Intravenou i ty of injection 5 21:00: 20:00 s, ONCE, 1 [place] mg 00 :00 dose, [facility] 10/25/20 at Branch 1600, Routine sodium 2020- No 4mL 4 mL, Univers chloride 7% 10-25 Inhalation i ty of (HYPER-JOSE) 16:15: 14:04 , BID, You as nebulizer 00 :03 First dose Medi lizzy solution 4 on [facility] Branch mL 10/25/20 at 1115, Until Discontinu ed, Routine ampicillin 2020- No 2000mg 2,000 mg, Univers (POLYCILLIN 10-25 IV ity of -N) 2,000 16:15: 14:06 Piggyback, [place] mg in NaCl 00 :40 Q8H ABX, Medic al 0.9% (NS) First dose Bran ch 100 mL on [facility] MINI-BAG 10/25/20 at 1115, Until Discontinu ed, 100 mL
R russ for Anti-Infec tive: Documented Infection< br>Documen tennille Infection Site: Urine<br&g t;Duration of Therapy: 7 days lactulose No 45mL 45 mL, [facility] rs (CEPHULAC) 10-25 Enteral, ity of solution 45 16:15: 15:35 ONCE, 1 [place] mL 00 :00 dose, [facility] 10/25/20 at Branch 1115, Routine ipratropium 2020- No 3mL 3 mL, Univ ers -albuteroL 10-25 Inhalation it y of (DUONEB) 16:13: 16:16 , QIDPRN, You as 0.5 mg-3 26 :25 Starting Medical mg(2.5 mg [facility] base)/3 mL 10/25/20 at nebulizer [...] g 00 :44 First dose Medical on [facility] 10/24/20 at 1430, Until Discontinu ed, Routine vancomycin No 15mg/kg 1,000 mg Univers (VANCOCIN) 10-23 (rounded ity of 1,000 mg in 18:30: 00:35 from 919.5 [place] NaCl 0.9% 00 :47 mg = 15 Medical (NS) 250 mL mg/kg Branch VIAL-MATE ?61.3 kg), IV IV piggyback Piggyback, Q24H ABX, First dose (after last modificati on) on [place] 10/23/20 at 1330, Until Discontinu ed, 250 mL
Reas on for Anti-Infec tive: Empiric Therapy for Suspected Infection< br>Empiric Therapy Site: Respirator y
Durat ion of therapy: 72 hours aspirin Yes 81mg 81 mg, Univers chewable 10-23 Oral, ity of tablet 81 14:00: DAILY, [place] mg 00 First dose Medical on [facility] 10/23/20 at 0900, Until Discontinu ed, Routine pantoprazol No 40mg 40 mg, IV Univers e 10-23 Piggyback, ity of (PROTONIX) 13:00: 14:12 Q12H, [place] 40 mg in 00 :01 First dose Medic al NaCl 0.9% on [facility] (NS) 100 mL 10/23/20 at MINI-BAG 0800, Until Discontinu ed, 100 mL Sliding Subcutaneo Uni vers Scale 10-23 us, TID ity of Insulin - 13:00: 12:58 MEALS+HS, [place] Lispro 00 :53 First dose Medical (HumaLOG) + on [facility] Fsbg 10/23/20 at Testing 0800, Until Discontinu ed, Routine potassium No 40meq 40 mEq, IV Univers chloride in 10-23 Piggyback, i ty of water (KCL) 10:30: 10:30 ONCE, 1 [place] 40 mEq/100 00 :00 dose, Sun Medi lizzy mL 40 mEq 10/23/20 at Bran [...] mL IV 1545, 100 piggyback mL meropenem No 500mg 500 mg, IV Univers (MERREM) [...]
Durat ion of therapy: 7 days vancomycin No 15mg/kg 1,000 mg Univers (VANCOCIN) 10-22 (rounded ity of 1,000 mg in 18:45: 21:13 from 919.5 [place] NaCl 0.9% 00 :00 mg = 15 [...] mcg/kg/min ity of 18:20: 12:12 ?61.3 kg [place] 00 :42 (1.839-18. Medical 39 mL/hr, Branch [...] mouth ity of 20 mg 16:24: daily. [place] tablet 17 [facility] traZODone Yes 100mg Take 100 Uni vers 100 mg 4-10 mg by ity of tablet 16:24: mouth at [place] [address] bedtime. [facility] Branch insulin NPH 2020- No inject Uni vers hum/reg 4-10 04-10 under the ity of insulin hm 16:24: 00:00 skin. [place] (NOVOLIN 17 :00 Medical 70/30 SC) [place] glucagon Yes 1mg 1 mg, [facility] (GLUCAGEN 4-10 Intramuscu ity of DIAGNOSTIC 16:21: [...] of unit/mL pen 00:00: 05:59 under the [place] injector 00 :00 skin 3 Medical (three) Branch times daily. insulin 2021- No 5U inject 5 Unive rs lispro 100 07-29-16 Units ity of unit/mL pen 00:00: 05:59 under the [place] injector 00 :00 skin 3 Medical (three) Branch times daily. insulin 2021- No 5U inject 5 Unive rs lispro 100 07-29-16 Units ity of unit/mL pen 00:00: 05:59 under the [place] injector 00 :00 skin 3 Medical (three) Branch times daily. insulin 2021- No 5U inject 5 Unive rs lispro 100 07-29-16 Units ity of unit/mL pen 00:00: 05:59 under the [place] injector 00 :00 skin 3 Medical (three) [...] Units ity of (LANTUS 00:00: under the [place] U-100 00 skin Medical INSULIN) daily. Branch 100 unit/mL injection insulin 2019-07 Yes 15U inject 15 Unive rs glargine 2-03 Units ity of (LANTUS 00:00: under the [place] U-100 00 skin Medical INSULIN) daily. Branch 100 unit/mL injection insulin 2019-07 Yes 15U inject 15 Unive rs glargine 2-03 Units ity of (LANTUS 00:00: under the [place] U-100 00 skin Medical INSULIN) daily. Branch 100 unit/mL injection insulin 2019-07 Yes 15U inject 15 Unive rs glargine 2-03 Units ity of (LANTUS 00:00: under the [place] U-100 00 skin Medical INSULIN) daily. Branch 100 unit/mL injection insulin 2019-07 Yes 15U inject 15 Unive rs glargine 2-03 Units ity of (LANTUS 00:00: under the [place] U-100 00 skin Medical INSULIN) daily. Branch 100 unit/mL injection insulin 2019-07 Yes 15U inject 15 Unive rs glargine 2-03 Units ity of (LANTUS 00:00: under the [place] U-100 00 skin Medical INSULIN) daily. Branch [...] Units ity of (LANTUS 00:00: under the [place] U-100 00 skin Medical INSULIN) daily. Branch 100 unit/mL injection insulin 2019-07 Yes 15U inject 15 Unive rs glargine 2-03 Units ity of (LANTUS 00:00: under the [place] U-100 00 skin Medical INSULIN) daily. Branch 100 unit/mL injection insulin 2019-07 Yes 15U inject 15 Unive rs glargine 2-03 Units ity of (LANTUS 00:00: under the [place] U-100 00 skin Medical INSULIN) daily. Branch 100 unit/mL injection insulin 2019-07 Yes 15U inject 15 Unive rs glargine 2-03 Units ity of (LANTUS 00:00: under the [place] U-100 00 skin Medical INSULIN) daily. Branch [...] the ity of insulin hm 21:24: skin. [place] ([address]) Branch escitalopra 2019-07 Yes 20mg Take 20 mg Univers m oxalate 0-20 by mouth ity of 20 mg 21:24: daily. [place] [address] Medical Branch traZODone 2019-07 Yes 100mg Take 100 Uni vers 100 mg 0-20 mg by ity of tablet 21:24: mouth at [place] [address] bedtime. Medical Branch insulin NPH 2019-07 Yes inject Univ ers hum/reg 0-20 under the ity of insulin hm 21:24: skin. [place] ([address]) Branch escitalopra 2019-07 Yes 20mg Take 20 mg Univers m oxalate 0-20 by mouth ity of 20 mg 21:24: daily. [place] [address] Medical Branch traZODone 2019-07 Yes 100mg Take 100 Uni vers 100 mg 0-20 mg by ity of tablet 21:24: mouth at [place] [address] bedtime. Medical Branch insulin NPH 2019-07 Yes inject Univ ers hum/reg 0-20 under the ity of insulin hm 21:24: skin. [place] ([address] [place]) Branch escitalopra 2019-07 Yes 20mg Take 20 mg Univers m oxalate 0-20 by mouth ity of 20 mg 21:24: daily. [address] Branch traZODone 2019-07 Yes 100mg Take 100 Uni vers 100 mg 0-20 mg by ity of tablet 21:24: mouth at [place] [address] bedtime. Medical Branch metFORMIN Yes [id number] 500mg Take 1 Univers 500 mg 4-16 tablet by ity of tablet 00:00: mouth 2 [place] [address] (two) Medical times Branch daily with meals. ondansetron 2020-0 Yes [id number] 4mg Take 1 Univers (ZOFRAN 4-16 tablet by ity of ODT) 4 mg 00:00: mouth [place] disintegrat 00 every 8 Medic al ing tablet (eight) Branch hours as needed for Nausea and Vomiting (N/V). metFORMIN 2020-0 Yes [id number] 500mg Take 1 Univers 500 mg 4-16 tablet by ity of tablet 00:00: mouth 2 [place] 00 (two) Medical times Branch daily with meals. ondansetron 2020-0 Yes [id number] 4mg Take 1 Univers (ZOFRAN 4-16 tablet by ity of ODT) 4 mg 00:00: mouth [place] disintegrat 00 every 8 Medic al ing tablet (eight) Branch hours as needed for Nausea and Vomiting (N/V). metFORMIN 2020-0 Yes [id number] 500mg Take 1 Univers 500 mg 4-16 tablet by ity of tablet 00:00: mouth 2 [place] (two) Medical times Branch daily with meals. ondansetron 2020-0 Yes [id number] 4mg Take 1 Univers (ZOFRAN 4-16 tablet by ity of ODT) 4 mg 00:00: mouth [place] disintegrat 00 every 8 Medic al ing tablet (eight) Branch hours as needed for Nausea and Vomiting (N/V). metFORMIN 2020-0 Yes [id number] 500mg Take 1 Univers 500 mg 4-16 tablet by ity of tablet 00:00: mouth 2 (two) Medical times Branch daily with meals. ondansetron 2020-0 Yes [id number] 4mg Take 1 Univers (ZOFRAN 4-16 tablet by ity of ODT) 4 mg 00:00: mouth [place] disintegrat 00 every 8 Medic al ing tablet (eight) Branch hours as needed for Nausea and Vomiting (N/V). metFORMIN 2020-0 Yes [id number] 500mg Take 1 Univers 500 mg 4-16 tablet by ity of tablet 00:00: mouth 2 00 (two) Medical times Branch daily with meals. ondansetron 2020-0 Yes [id number] 4mg Take 1 Univers (ZOFRAN 4-16 tablet by ity of ODT) 4 mg 00:00: mouth [place] disintegrat 00 every 8 Medic al ing tablet (eight) Branch hours as needed for Nausea and Vomiting (N/V). metFORMIN 2020-0 Yes [id number] 500mg Take 1 Univers 500 mg 4-16 tablet by ity of tablet 00:00: mouth 2 (two) Medical times Branch daily with meals. ondansetron 2020-0 Yes [id number] 4mg Take 1 Univers (ZOFRAN 4-16 tablet by ity of ODT) 4 mg 00:00: mouth [place] disintegrat 00 every 8 Medic al ing tablet (eight) Branch hours as needed for Nausea and Vomiting (N/V). metFORMIN 2020-0 Yes [id number] 500mg Take 1 Univers 500 mg 4-16 tablet by ity of tablet 00:00: mouth 2 (two) Medical times Branch daily with meals. ondansetron 2020-0 Yes [id number] 4mg Take 1 Univers (ZOFRAN 4-16 tablet by ity of ODT) 4 mg 00:00: mouth [place] disintegrat 00 every 8 Medic al ing tablet (eight) Branch hours as needed for Nausea and Vomiting (N/V). metFORMIN 2020-0 Yes [id number] 500mg Take 1 Univers 500 mg 4-16 tablet by ity of tablet 00:00: mouth (two) Medical times Branch daily with meals. ondansetron 2020-0 Yes [id number] 4mg Take 1 Univers (ZOFRAN 4-16 tablet by ity of ODT) 4 mg 00:00: mouth [place] disintegrat 00 every 8 Medic al ing tablet (eight) Branch hours as needed for Nausea and Vomiting (N/V). metFORMIN 2020-0 Yes [id number] 500mg Take 1 Univers 500 mg 4-16 tablet by ity of tablet 00:00: mouth (two) Medical times Branch daily with meals. ondansetron 2020-0 Yes [id number] 4mg Take 1 Univers (ZOFRAN 4-16 tablet by ity of ODT) 4 mg 00:00: mouth [place] disintegrat 00 every 8 Medic al ing tablet (eight) Branch hours as needed for Nausea and Vomiting (N/V). metFORMIN 2020-0 Yes [id number] 500mg Take 1 Univers 500 mg 4-16 tablet by ity of tablet 00:00: mouth 2 [place] (two) Medical times Branch daily with meals. ondansetron 2020-0 Yes [id number] 4mg Take 1 Univers (ZOFRAN 4-16 tablet by ity of ODT) 4 mg 00:00: mouth [place] disintegrat 00 every 8 Medic al ing tablet (eight) Branch hours as needed for Nausea and Vomiting (N/V). metFORMIN 2020-0 Yes [id number] 500mg Take 1 Univers 500 mg 4-16 tablet by ity of tablet 00:00: mouth 2 [place] (two) Medical times Branch daily with meals. ondansetron 2020-0 Yes [id number] 4mg Take 1 Univers (ZOFRAN 4-16 tablet by ity of ODT) 4 mg 00:00: mouth [place] disintegrat 00 every 8 Medic al ing tablet (eight) Branch hours as needed for Nausea and Vomiting (N/V). metFORMIN 2020-0 Yes [id number] 500mg Take 1 Univers 500 mg 4-16 tablet by ity of tablet 00:00: mouth 2 [place] (two) Medical times Branch daily with meals. ondansetron 2020-0 Yes [id number] 4mg Take 1 Univers (ZOFRAN 4-16 tablet by ity of ODT) 4 mg 00:00: mouth [place] disintegrat 00 every 8 Medic al ing tablet (eight) Branch hours as needed for Nausea and Vomiting (N/V). metFORMIN 2020-0 Yes [id number] 500mg Take 1 Univers 500 mg 4-16 tablet by ity of tablet 00:00: mouth (two) Medical times Branch daily with meals. ondansetron 2020-0 Yes [id number] 4mg Take 1 Univers (ZOFRAN 4-16 tablet by ity of ODT) 4 mg 00:00: mouth [place] disintegrat 00 every 8 Medic al ing tablet (eight) Branch hours as needed for Nausea and Vomiting (N/V). metFORMIN 2020-0 Yes [id number] 500mg Take 1 Univers 500 mg 4-16 tablet by ity of tablet 00:00: mouth 2 [place] (two) Medical times Branch daily with meals. ondansetron 2020-0 Yes [id number] 4mg Take 1 Univers (ZOFRAN 4-16 tablet by ity of ODT) 4 mg 00:00: mouth [place] disintegrat 00 every 8 Medic al ing tablet (eight) Branch hours as needed for Nausea and Vomiting (N/V). metFORMIN 2020-0 Yes [id number] 500mg Take 1 Univers 500 mg 4-16 tablet by ity of tablet 00:00: mouth 2 [place] 00 (two) Medical times Branch daily with meals. ondansetron 2020-0 Yes [id number] 4mg Take 1 Univers (ZOFRAN 4-16 tablet by ity of ODT) 4 mg 00:00: mouth [place] disintegrat 00 every 8 Medic al ing tablet (eight) Branch hours as needed for Nausea and Vomiting (N/V). metFORMIN 2020-0 Yes [id number] 500mg Take 1 Univers 500 mg 4-16 tablet by ity of tablet 00:00: mouth (two) Medical times Branch daily with meals. ondansetron 2020-0 Yes [id number] 4mg Take 1 Univers (ZOFRAN 4-16 tablet by ity of ODT) 4 mg 00:00: mouth [place] disintegrat 00 every 8 Medic al ing tablet (eight) Branch hours as needed for Nausea and Vomiting (N/V). metFORMIN 2020-0 Yes [id number] 500mg Take 1 Univers 500 mg 4-16 tablet by ity of tablet 00:00: mouth (two) Medical times Branch daily with meals. ondansetron 2020-0 Yes [id number] 4mg Take 1 Univers (ZOFRAN 4-16 tablet by ity of ODT) 4 mg 00:00: mouth [place] disintegrat 00 every 8 Medic al ing tablet (eight) Branch hours as needed for Nausea and Vomiting (N/V). metFORMIN 2020-0 Yes [id number] 500mg Take 1 Univers 500 mg 4-16 tablet by ity of tablet 00:00: mouth (two) Medical times Branch daily with meals. ondansetron 2020-0 Yes [id number] 4mg Take 1 Univers (ZOFRAN 4-16 tablet by ity of ODT) 4 mg 00:00: mouth [place] disintegrat 00 every 8 Medic al ing tablet (eight) Branch hours as needed for Nausea and Vomiting (N/V). metFORMIN 2020-0 Yes [id number] 500mg Take 1 Univers 500 mg 4-16 tablet by ity of tablet 00:00: mouth 2 (two) Medical times Branch daily with meals. ondansetron 2020-0 Yes [id number] 4mg Take 1 Univers (ZOFRAN 4-16 tablet by ity of ODT) 4 mg 00:00: mouth [place] disintegrat 00 every 8 Medic al ing tablet (eight) Branch hours as needed for Nausea and Vomiting (N/V). metFORMIN 2020-0 Yes [id number] 500mg Take 1 Univers 500 mg 4-16 tablet by ity of tablet 00:00: mouth 2 (two) Medical times Branch daily with meals. ondansetron 2020-0 Yes [id number] 4mg Take 1 Univers (ZOFRAN 4-16 tablet by ity of ODT) 4 mg 00:00: mouth [place] disintegrat 00 every 8 Medic al ing tablet (eight) Branch hours as needed for Nausea and Vomiting (N/V). metFORMIN 2020-0 Yes [id number] 500mg Take 1 Univers 500 mg 4-16 tablet by ity of tablet 00:00: mouth 2 (two) Medical times Branch daily with meals. ondansetron 2020-0 Yes [id number] 4mg Take 1 [facility] (ZOFRAN 4-16 tablet by ity of ODT) 4 mg 00:00: mouth [place] disintegrat 00 every 8 Medic al ing tablet (eight) Branch hours as needed for Nausea and Vomiting (N/V). metFORMIN 2020-0 Yes [id number] 500mg Take 1 [facility] 500 mg 4-16 tablet by ity of tablet 00:00: mouth (two) Medical times Branch daily with meals. ondansetron 2020-0 Yes [id number] 4mg Take 1 [facility] (ZOFRAN 4-16 tablet by ity of ODT) 4 mg 00:00: mouth [place] disintegrat 00 every 8 Medic al ing tablet (eight) Branch hours as needed for Nausea and Vomiting (N/V). metFORMIN 2020-0 Yes [id number] 500mg Take 1 [facility] 500 mg 4-16 tablet by ity of tablet 00:00: mouth (two) Medical times Branch daily with meals. ondansetron 2020-0 Yes [id number] 4mg Take 1 [facility] (ZOFRAN 4-16 tablet by ity of ODT) 4 mg 00:00: mouth [place] disintegrat 00 every 8 Medic al ing tablet (eight) Branch hours as needed for Nausea and Vomiting (N/V). metFORMIN 2020-0 Yes [id number] 500mg Take 1 [facility] 500 mg 4-16 tablet by ity of tablet 00:00: mouth 2 (two) Medical times Branch daily with meals. ondansetron 2020-0 Yes [id number] 4mg Take 1 [facility] (ZOFRAN 4-16 tablet by ity of ODT) 4 mg 00:00: mouth [place] disintegrat 00 every 8 Medic al ing tablet (eight) Branch hours as needed for Nausea and Vomiting (N/V). metFORMIN 2020-0 Yes [id number] 500mg Take 1 [facility] 500 mg 4-16 tablet by ity of tablet 00:00: mouth 2 00 (two) Medical times Branch daily with meals. ondansetron 2020-0 Yes [id number] 4mg Take 1 [facility] (ZOFRAN 4-16 tablet by ity of ODT) 4 mg 00:00: mouth [place] disintegrat 00 every 8 Medic al ing tablet (eight) Branch hours as needed for Nausea and Vomiting (N/V). metFORMIN 2020-0 Yes [id number] 500mg Take 1 [facility] 500 mg 4-16 tablet by ity of tablet 00:00: mouth 2 [place] (two) Medical times Branch daily with meals. ondansetron 2020-0 Yes [id number] 4mg Take 1 [facility] (ZOFRAN 4-16 tablet by ity of ODT) 4 mg 00:00: mouth [place] disintegrat 00 every 8 Medic al ing tablet (eight) Branch hours as needed for Nausea and Vomiting (N/V). metFORMIN 2020-0 Yes [id number] 500mg Take 1 [facility] 500 mg 4-16 tablet by ity of tablet 00:00: mouth 2 (two) Medical times Branch daily with meals. ondansetron 2020-0 Yes [id number] 4mg Take 1 [facility] (ZOFRAN 4-16 tablet by ity of ODT) 4 mg 00:00: mouth [place] disintegrat 00 every 8 Medic al ing tablet (eight) Branch hours as needed for Nausea and Vomiting (N/V). metFORMIN 2020-0 Yes [id number] 500mg Take 1 [facility] 500 mg 4-16 tablet by ity of tablet 00:00: mouth 2 (two) Medical times Branch daily with meals. ondansetron 2020-0 Yes [id number] 4mg Take 1 [facility] (ZOFRAN 4-16 tablet by ity of ODT) 4 mg 00:00: mouth [place] disintegrat 00 every 8 Medic al ing tablet (eight) Branch hours as needed for Nausea and Vomiting (N/V). metFORMIN 2020-0 Yes [id number] 500mg Take 1 [facility] 500 mg 4-16 tablet by ity of tablet 00:00: mouth 2 [place] 00 (two) Medical times Branch daily with meals. ondansetron Yes [id number] 4mg Take 1 [facility] (ZOFRAN 4-16 tablet by ity of ODT) 4 mg 00:00: mouth [place] disintegrat 00 every 8 Medic al ing tablet (eight) Branch hours as needed for Nausea and Vomiting (N/V). metFORMIN 2020- No [id number] 500mg Take 1 [facility] 500 mg 4-16 04-27 tablet by ity of tablet 00:00: 00:00 mouth 2 [place] 00 :00 (two) Medical times Branch daily with meals. ondansetron 2020- No [id number] 4mg Take 1 [facility] (ZOFRAN 4-16 04-27 tablet by ity of ODT) 4 mg 00:00: 00:00 mouth [place] disintegrat 00 :00 every 8 Medic al ing tablet (eight) Branch hours as needed for Nausea and Vomiting (N/V). metFORMIN 2020- No [id number] 500mg Take 1 [facility] 500 mg 4-16 04-27 tablet by ity of tablet 00:00: 00:00 mouth 2 [place] 00 :00 (two) Medical times Branch daily with meals. ondansetron 2020- No [id number] 4mg Take 1 [facility] (ZOFRAN 4-16 04-27 [...] 2 Medical NPH INSULIN (two) Branch KWIKPEN OK) times daily. atorvastati Yes 80mg 80 mg, Univ ers n (LIPITOR) 4-15 Oral, QHS, it y of tablet 80 02:00: First dose [place] mg 00 on [facility] 10/27/19 at Branch 2100, Until Discontinu ed, Routine amoxicillin 2020-0 Yes [id number] 500mg Take 1 [facility] 500 mg 4-15 capsule by ity of capsule 00:00: mouth 2 [place] 00 (two) Medical times Branch daily. Lactobacill 2020-0 Yes [id number] 1{tbl} Take 1 [facility] us 4-15 tablet by ity of Acidophilus 00:00: mouth 2 You as 1 billion 00 (two) Medical cell Tab times Branch daily. traMADol 50 2020-0 Yes [id number] 50mg Take 1 [facility] mg tablet 4-15 tablet by ity o f 00:00: mouth [place] 00 every 8 Medical (eight) Branch hours as needed for Pain (scale 7-10). amoxicillin 2020-0 Yes [id number] 500mg Take 1 [facility] 500 mg 4-15 capsule by ity of capsule 00:00: mouth 2 [place] 00 (two) Medical times Branch daily. Lactobacill 2020-0 Yes [id number] 1{tbl} Take 1 [facility] us 4-15 tablet by ity of Acidophilus 00:00: mouth 2 [place] as 1 billion 00 (two) Medical cell Tab times Branch daily. traMADol 50 2020-0 Yes [id number] 50mg Take 1 [facility] mg tablet 4-15 tablet by ity o f 00:00: mouth [place] 00 every 8 Medical (eight) Branch hours as needed for Pain (scale 7-10). amoxicillin 2020-0 Yes [id number] 500mg Take 1 [facility] 500 mg 4-15 capsule by ity of capsule 00:00: mouth 2 [place] 00 (two) Medical times Branch daily. Lactobacill 2020-0 Yes [id number] 1{tbl} Take 1 [facility] us 4-15 tablet by ity of Acidophilus 00:00: mouth 2 [place] 1 billion 00 (two) Medical cell Tab times Branch daily. traMADol 50 2020-0 Yes [id number] 50mg Take 1 [facility] mg tablet 4-15 tablet by ity o f 00:00: mouth [place] 00 every 8 Medical (eight) Branch hours as needed for Pain (scale 7-10). amoxicillin 2020-0 Yes [id number] 500mg Take 1 [facility] 500 mg 4-15 capsule by ity of capsule 00:00: mouth 2 [place] 00 (two) Medical times Branch daily. Lactobacill 2020-0 Yes [id number] 1{tbl} Take 1 [facility] us 4-15 tablet by ity of Acidophilus 00:00: mouth 2 [place] as 1 billion 00 (two) Medical cell Tab times Branch daily. traMADol 50 2020-0 Yes [id number] 50mg Take 1 [facility] mg tablet 4-15 tablet by ity o f 00:00: mouth [place] 00 every 8 Medical (eight) Branch hours as needed for Pain (scale 7-10). amoxicillin 2020-0 Yes [id number] 500mg Take 1 [facility] 500 mg 4-15 capsule by ity of capsule 00:00: mouth 2 [place] 00 (two) Medical times Branch daily. Lactobacill 2020-0 Yes [id number] 1{tbl} Take 1 [facility] us 4-15 tablet by ity of Acidophilus 00:00: mouth 2 [place] as 1 billion 00 (two) Medical cell Tab times Branch daily. traMADol 50 2020-0 Yes [id number] 50mg Take 1 [facility] mg tablet 4-15 tablet by ity o f 00:00: mouth [place] 00 every 8 Medical (eight) Branch hours as needed for Pain (scale 7-10). amoxicillin 2020-0 Yes [id number] 500mg Take 1 [facility] 500 mg 4-15 capsule by ity of capsule 00:00: mouth 2 [place] 00 (two) Medical times Branch daily. Lactobacill 2020-0 Yes [id number] 1{tbl} Take 1 [facility] us 4-15 tablet by ity of Acidophilus 00:00: mouth 2 [place] 1 billion 00 (two) Medical cell Tab times Branch daily. traMADol 50 2020-0 Yes [id number] 50mg Take 1 [facility] mg tablet 4-15 tablet by ity o f 00:00: mouth [place] 00 every 8 Medical (eight) Branch hours as needed for Pain (scale 7-10). amoxicillin 2020-0 Yes [id number] 500mg Take 1 [facility] 500 mg 4-15 capsule by ity of capsule 00:00: mouth 2 [place] 00 (two) Medical times Branch daily. Lactobacill 2020-0 Yes [id number] 1{tbl} Take 1 [facility] us 4-15 tablet by ity of Acidophilus 00:00: mouth 2 [place] 1 billion 00 (two) Medical cell Tab times Branch daily. traMADol 50 2020-0 Yes [id number] 50mg Take 1 [facility] mg tablet 4-15 tablet by ity o f 00:00: mouth [place] 00 every 8 Medical (eight) Branch hours as needed for Pain (scale 7-10). amoxicillin 2020-0 Yes [id number] 500mg Take 1 [facility] 500 mg 4-15 capsule by ity of capsule 00:00: mouth 2 [place] 00 (two) Medical times Branch daily. Lactobacill 2020-0 Yes [id number] 1{tbl} Take 1 [facility] us 4-15 tablet by ity of Acidophilus 00:00: mouth 2 [place] as 1 billion 00 (two) Medical cell Tab times Branch daily. traMADol 50 2020-0 Yes [id number] 50mg Take 1 [facility] mg tablet 4-15 tablet by ity o f 00:00: mouth [place] 00 every 8 Medical (eight) Branch hours as needed for Pain (scale 7-10). amoxicillin 2020-0 Yes [id number] 500mg Take 1 [facility] 500 mg 4-15 capsule by ity of capsule 00:00: mouth 2 [place] 00 (two) Medical times Branch daily. Lactobacill 2020-0 Yes [id number] 1{tbl} Take 1 [facility] us 4-15 tablet by ity of Acidophilus 00:00: mouth 2 You as 1 billion 00 (two) Medical cell Tab times Branch daily. traMADol 50 2020-0 Yes [id number] 50mg Take 1 [facility] mg tablet 4-15 tablet by ity o f 00:00: mouth [place] 00 every 8 Medical (eight) Branch hours as needed for Pain (scale 7-10). amoxicillin 2020-0 Yes [id number] 500mg Take 1 [facility] 500 mg 4-15 capsule by ity of capsule 00:00: mouth 2 00 (two) Medical times Branch daily. Lactobacill 2020-0 Yes [id number] 1{tbl} Take 1 [facility] us 4-15 tablet by ity of Acidophilus 00:00: mouth 2 [place] as 1 billion 00 (two) Medical cell Tab times Branch daily. traMADol 50 2020-0 Yes [id number] 50mg Take 1 [facility] mg tablet 4-15 tablet by ity o f 00:00: mouth [place] 00 every 8 Medical (eight) Branch hours as needed for Pain (scale 7-10). amoxicillin 2020-0 Yes [id number] 500mg Take 1 [facility] 500 mg 4-15 capsule by ity of capsule 00:00: mouth 2 [place] 00 (two) Medical times Branch daily. Lactobacill 2020-0 Yes [id number] 1{tbl} Take 1 [facility] us 4-15 tablet by ity of Acidophilus 00:00: mouth 2 [place] as 1 billion 00 (two) Medical cell Tab times Branch daily. traMADol 50 2020-0 Yes [id number] 50mg Take 1 [facility] mg tablet 4-15 tablet by ity o f 00:00: mouth [place] 00 every 8 Medical (eight) Branch hours as needed for Pain (scale 7-10). amoxicillin 2020-0 Yes [id number] 500mg Take 1 [facility] 500 mg 4-15 capsule by ity of capsule 00:00: mouth 2 [place] 00 (two) Medical times Branch daily. Lactobacill 2020-0 Yes [id number] 1{tbl} Take 1 [facility] us 4-15 tablet by ity of Acidophilus 00:00: mouth 2 You as 1 billion 00 (two) Medical cell Tab times Branch daily. traMADol 50 2020-0 Yes [id number] 50mg Take 1 [facility] mg tablet 4-15 tablet by ity o f 00:00: mouth [place] 00 every 8 Medical (eight) Branch hours as needed for Pain (scale 7-10). amoxicillin 2020-0 Yes [id number] 500mg Take 1 [facility] 500 mg 4-15 capsule by ity of capsule 00:00: mouth 2 [place] 00 (two) Medical times Branch daily. Lactobacill 2020-0 Yes [id number] 1{tbl} Take 1 [facility] us 4-15 tablet by ity of Acidophilus 00:00: mouth 2 You as 1 billion 00 (two) Medical cell Tab times Branch daily. traMADol 50 2020-0 Yes [id number] 50mg Take 1 [facility] mg tablet 4-15 tablet by ity o f 00:00: mouth [place] 00 every 8 Medical (eight) Branch hours as needed for Pain (scale 7-10). amoxicillin 2020-0 Yes [id number] 500mg Take 1 [facility] 500 mg 4-15 capsule by ity of capsule 00:00: mouth 2 [place] 00 (two) Medical times Branch daily. Lactobacill 2020-0 Yes [id number] 1{tbl} Take 1 [facility] us 4-15 tablet by ity of Acidophilus 00:00: mouth 2 You as 1 billion 00 (two) Medical cell Tab times Branch daily. traMADol 50 2020-0 Yes [id number] 50mg Take 1 [facility] mg tablet 4-15 tablet by ity o f 00:00: mouth [place] 00 every 8 Medical (eight) Branch hours as needed for Pain (scale 7-10). amoxicillin 2020-0 Yes [id number] 500mg Take 1 [facility] 500 mg 4-15 capsule by ity of capsule 00:00: mouth 2 [place] 00 (two) Medical times Branch daily. Lactobacill 2020-0 Yes [id number] 1{tbl} Take 1 [facility] us 4-15 tablet by ity of Acidophilus 00:00: mouth 2 You as 1 billion 00 (two) Medical cell Tab times Branch daily. traMADol 50 2020-0 Yes [id number] 50mg Take 1 [facility] mg tablet 4-15 tablet by ity o f 00:00: mouth [place] 00 every 8 Medical (eight) Branch hours as needed for Pain (scale 7-10). amoxicillin 2020-0 Yes [id number] 500mg Take 1 [facility] 500 mg 4-15 capsule by ity of capsule 00:00: mouth 2 [place] 00 (two) Medical times Branch daily. Lactobacill 2020-0 Yes [id number] 1{tbl} Take 1 [facility] us 4-15 tablet by ity of Acidophilus 00:00: mouth 2 You as 1 billion 00 (two) Medical cell Tab times Branch daily. traMADol 50 2020-0 Yes [id number] 50mg Take 1 [facility] mg tablet 4-15 tablet by ity o f 00:00: mouth [place] 00 every 8 Medical (eight) Branch hours as needed for Pain (scale 7-10). amoxicillin 2020-0 Yes [id number] 500mg Take 1 [facility] 500 mg 4-15 capsule by ity of capsule 00:00: mouth 2 00 (two) Medical times Branch daily. Lactobacill 2020-0 Yes [id number] 1{tbl} Take 1 [facility] us 4-15 tablet by ity of Acidophilus 00:00: mouth 2 [place] 1 billion 00 (two) Medical cell Tab times Branch daily. traMADol 50 2020-0 Yes [id number] 50mg Take 1 [facility] mg tablet 4-15 tablet by ity o f 00:00: mouth [place] 00 every 8 Medical (eight) Branch hours as needed for Pain (scale 7-10). amoxicillin 2020-0 Yes [id number] 500mg Take 1 [facility] 500 mg 4-15 capsule by ity of capsule 00:00: mouth 2 [place] 00 (two) Medical times Branch daily. Lactobacill 2020-0 Yes [id number] 1{tbl} Take 1 [facility] us 4-15 tablet by ity of Acidophilus 00:00: mouth 2 You as 1 billion 00 (two) Medical cell Tab times Branch daily. traMADol 50 2020-0 Yes [id number] 50mg Take 1 [facility] mg tablet 4-15 tablet by ity o f 00:00: mouth [place] 00 every 8 Medical (eight) Branch hours as needed for Pain (scale 7-10). amoxicillin 2020-0 Yes [id number] 500mg Take 1 [facility] 500 mg 4-15 capsule by ity of capsule 00:00: mouth 2 [place] 00 (two) Medical times Branch daily. Lactobacill 2020-0 Yes [id number] 1{tbl} Take 1 [facility] us 4-15 tablet by ity of Acidophilus 00:00: mouth 2 You as 1 billion 00 (two) Medical cell Tab times Branch daily. traMADol 50 2020-0 Yes [id number] 50mg Take 1 [facility] mg tablet 4-15 tablet by ity o f 00:00: mouth [place] 00 every 8 Medical (eight) Branch hours as needed for Pain (scale 7-10). amoxicillin 2020-0 Yes [id number] 500mg Take 1 [facility] 500 mg 4-15 capsule by ity of capsule 00:00: mouth 2 [place] 00 (two) Medical times Branch daily. Lactobacill 2020-0 Yes [id number] 1{tbl} Take 1 [facility] us 4-15 tablet by ity of Acidophilus 00:00: mouth 2 You as 1 billion 00 (two) Medical cell Tab times Branch daily. traMADol 50 2020-0 Yes [id number] 50mg Take 1 [facility] mg tablet 4-15 tablet by ity o f 00:00: mouth [place] 00 every 8 Medical (eight) Branch hours as needed for Pain (scale 7-10). amoxicillin 2020-0 Yes [id number] 500mg Take 1 [facility] 500 mg 4-15 capsule by ity of capsule 00:00: mouth 2 [place] 00 (two) Medical times Branch daily. Lactobacill 2020-0 Yes [id number] 1{tbl} Take 1 [facility] us 4-15 tablet by ity of Acidophilus 00:00: mouth 2 You as 1 billion 00 (two) Medical cell Tab times Branch daily. traMADol 50 2020-0 Yes [id number] 50mg Take 1 [facility] mg tablet 4-15 tablet by ity o f 00:00: mouth [place] 00 every 8 Medical (eight) Branch hours as needed for Pain (scale 7-10). amoxicillin 2020-0 Yes [id number] 500mg Take 1 [facility] 500 mg 4-15 capsule by ity of capsule 00:00: mouth 2 [place] 00 (two) Medical times Branch daily. Lactobacill 2020-0 Yes [id number] 1{tbl} Take 1 [facility] us 4-15 tablet by ity of Acidophilus 00:00: mouth 2 You as 1 billion 00 (two) Medical cell Tab times Branch daily. traMADol 50 2020-0 Yes [id number] 50mg Take 1 [facility] mg tablet 4-15 tablet by ity o f 00:00: mouth [place] 00 every 8 Medical (eight) Branch hours as needed for Pain (scale 7-10). amoxicillin 2020-0 Yes [id number] 500mg Take 1 [facility] 500 mg 4-15 capsule by ity of capsule 00:00: mouth 2 [place] 00 (two) Medical times Branch daily. Lactobacill 2020-0 Yes [id number] 1{tbl} Take 1 [facility] us 4-15 tablet by ity of Acidophilus 00:00: mouth 2 [place] as 1 billion 00 (two) Medical cell Tab times Branch daily. traMADol 50 2020-0 Yes [id number] 50mg Take 1 [facility] mg tablet 4-15 tablet by ity o f 00:00: mouth [place] 00 every 8 Medical (eight) Branch hours as needed for Pain (scale 7-10). amoxicillin 2020-0 Yes [id number] 500mg Take 1 [facility] 500 mg 4-15 capsule by ity of capsule 00:00: mouth 2 00 (two) Medical times Branch daily. Lactobacill 2020-0 Yes [id number] 1{tbl} Take 1 [facility] us 4-15 tablet by ity of Acidophilus 00:00: mouth 2 [place] 1 billion 00 (two) Medical cell Tab times Branch daily. traMADol 50 2020-0 Yes [id number] 50mg Take 1 [facility] mg tablet 4-15 tablet by ity o f 00:00: mouth [place] 00 every 8 Medical (eight) Branch hours as needed for Pain (scale 7-10). amoxicillin 2020-0 Yes [id number] 500mg Take 1 [facility] 500 mg 4-15 capsule by ity of capsule 00:00: mouth 2 [place] 00 (two) Medical times Branch daily. Lactobacill 2020-0 Yes [id number] 1{tbl} Take 1 [facility] us 4-15 tablet by ity of Acidophilus 00:00: mouth 2 You as 1 billion 00 (two) Medical cell Tab times Branch daily. traMADol 50 2020-0 Yes [id number] 50mg Take 1 [facility] mg tablet 4-15 tablet by ity o f 00:00: mouth [place] 00 every 8 Medical (eight) Branch hours as needed for Pain (scale 7-10). amoxicillin 2020-0 Yes [id number] 500mg Take 1 [facility] 500 mg 4-15 capsule by ity of capsule 00:00: mouth 2 [place] 00 (two) Medical times Branch daily. Lactobacill 2020-0 Yes [id number] 1{tbl} Take 1 [facility] us 4-15 tablet by ity of Acidophilus 00:00: mouth 2 You as 1 billion 00 (two) Medical cell Tab times Branch daily. traMADol 50 2020-0 Yes [id number] 50mg Take 1 [facility] mg tablet 4-15 tablet by ity o f 00:00: mouth [place] 00 every 8 Medical (eight) Branch hours as needed for Pain (scale 7-10). amoxicillin 2020-0 Yes [id number] 500mg Take 1 [facility] 500 mg 4-15 capsule by ity of capsule 00:00: mouth 2 [place] 00 (two) Medical times Branch daily. Lactobacill 2020-0 Yes [id number] 1{tbl} Take 1 [facility] us 4-15 tablet by ity of Acidophilus 00:00: mouth 2 You as 1 billion 00 (two) Medical cell Tab times Branch daily. traMADol 50 2020-0 Yes [id number] 50mg Take 1 [facility] mg tablet 4-15 tablet by ity o f 00:00: mouth [place] 00 every 8 Medical (eight) Branch hours as needed for Pain (scale 7-10). amoxicillin 2020-0 Yes [id number] 500mg Take 1 [facility] 500 mg 4-15 capsule by ity of capsule 00:00: mouth 2 [place] 00 (two) Medical times Branch daily. Lactobacill 2020-0 Yes [id number] 1{tbl} Take 1 [facility] us 4-15 tablet by ity of Acidophilus 00:00: mouth 2 You as 1 billion 00 (two) Medical cell Tab times Branch daily. traMADol 50 2020-0 Yes [id number] 50mg Take 1 [facility] mg tablet 4-15 tablet by ity o f 00:00: mouth [place] 00 every 8 Medical (eight) Branch hours as needed for Pain (scale 7-10). amoxicillin 2020-0 Yes [id number] 500mg Take 1 [facility] 500 mg 4-15 capsule by ity of capsule 00:00: mouth 2 [place] 00 (two) Medical times Branch daily. Lactobacill 2020-0 Yes [id number] 1{tbl} Take 1 [facility] us 4-15 tablet by ity of Acidophilus 00:00: mouth 2 You as 1 billion 00 (two) Medical cell Tab times Branch daily. traMADol 50 2020-0 Yes [id number] 50mg Take 1 [facility] mg tablet 4-15 tablet by ity o f 00:00: mouth [place] 00 every 8 Medical (eight) Branch hours as needed for Pain (scale 7-10). amoxicillin 2020-0 Yes [id number] 500mg Take 1 [facility] 500 mg 4-15 capsule by ity of capsule 00:00: mouth 2 [place] 00 (two) Medical times Branch daily. Lactobacill 2020-0 Yes [id number] 1{tbl} Take 1 [facility] us 4-15 tablet by ity of Acidophilus 00:00: mouth 2 You as 1 billion 00 (two) Medical cell Tab times Branch daily. traMADol 50 2020-0 Yes [id number] 50mg Take 1 [facility] mg tablet 4-15 tablet by ity o f 00:00: mouth [place] 00 every 8 Medical (eight) Branch hours as needed for Pain (scale 7-10). amoxicillin 2020-0 Yes [id number] 500mg Take 1 [facility] 500 mg 4-15 capsule by ity of capsule 00:00: mouth 2 [place] 00 (two) Medical times Branch daily. Lactobacill 2020-0 Yes [id number] 1{tbl} Take 1 [facility] us 4-15 tablet by ity of Acidophilus 00:00: mouth 2 You as 1 billion 00 (two) Medical cell Tab times Branch daily. traMADol 50 2020-0 Yes [id number] 50mg Take 1 [facility] mg tablet 4-15 tablet by ity o f 00:00: mouth [place] 00 every 8 Medical (eight) Branch hours as needed for Pain (scale 7-10). traMADol 50 2020-0 Yes [id number] 50mg Take 1 [facility] mg tablet 4-15 tablet by ity o f 00:00: mouth [place] 00 every 8 Medical (eight) Branch hours as needed for Pain (scale 7-10). traMADol 50 2019-2020- No [id number] 50mg Take 1 [facility] mg tablet 4-15 04-27 tablet by ity of 00:00: 00:00 mouth [place] 00 :00 every 8 Medical (eight) Branch hours as needed for Pain (scale 7-10). traMADol 50 2019-2020- No [id number] 50mg Take 1 [facility] mg tablet 4-15 04-27 tablet by ity of 00:00: 00:00 mouth [place] 00 :00 every 8 Medical (eight) Branch hours as needed for Pain (scale 7-10). amoxicillin 2019-2020- No [id number] 500mg Take 1 [facility] 500 mg 4-15 04-10 capsule by ity of capsule 00:00: 00:00 mouth 2 [place] 00 :00 (two) Medical times Branch daily. amoxicillin 2019-0 2020- No [id number] 500mg Take 1 [facility] 500 mg 4-15 04-10 capsule by ity of capsule 00:00: 00:00 mouth 2 [place] 00 :00 (two) Medical times Branch daily. amoxicillin 2019-2020- No [id number] 500mg Take 1 [facility] 500 mg 4-15 04-10 capsule by ity of capsule 00:00: 00:00 mouth 2 [place] 00 :00 (two) Medical times Branch daily. Lactobacill 2020- No [id number] 1{tbl} Take 1 [facility] us 4-15 04-10 tablet by ity of Acidophilus 00:00: 00:00 mouth 2 [place] 1 billion 00 :00 (two) Medical cell Tab times Branch daily. metoclopram 2020-0 Yes 5mg 5 mg, Slow Univers bj HCl 4-14 IV Push, ity of (REGLAN) 23:14: Q6HPRN, [place] injection 5 57 Starting Medi lizzy mg [facility] Branch 10/27/19 at 1814, Until Discontinu ed, Routine, Headache traMADol 2020-0 Yes 50mg 50 mg, Univers (ULTRAM) 4-14 Oral, ity of tablet 50 23:14: Q4HPRN, [place] mg 45 Starting Medical Tue Branch 10/27/19 at 1814, Until Discontinu ed, Routine, Pain (scale 4-6), Headache acetaminoph 2020-0 Yes 650mg 650 mg, Un michael en 4-14 Oral, ity of (TYLENOL) 18:40: Q4HPRN, [place] tablet 650 56 Starting Medic al mg [facility] 10/27/19 at 1340, Until Discontinu ed, Routine, Pain (scale 1-3) furosemide 2020-0 Yes 40mg 40 mg, Unive rs (LASIX) 4-14 Oral, ity of tablet 40 14:00: QAM+PM, [place] mg 00 First dose Medical on [facility] 10/27/19 at 0900, Until Discontinu ed, Routine metoprolol 2020-0 Yes 50mg 50 mg, Unive rs succinate 4-14 Oral, ity of XL (TOPROL 14:00: DAILY, [place] XL) tablet 00 First dose Med ical 50 mg on [facility] 10/27/19 at 0900, Until Discontinu ed, Routine clopidogreL 2020-0 Yes 75mg 75 mg, Univ ers (PLAVIX) 4-14 Oral, ity of tablet 75 14:00: DAILY, [place] mg 00 First dose Medical on [facility] 10/27/19 at 0900, Until Discontinu ed, Routine enoxaparin 2020-0 Yes 30mg 30 mg, Unive rs (LOVENOX) 4-14 Subcutaneo ity of injection 14:00: us, DAILY, [place] 30 mg 00 First dose Medical on [facility] 10/27/19 at 0900, Until Discontinu ed, Routine docusate 2020-0 Yes 100mg 100 mg, Unive rs (COLACE) 4-14 Oral, BID, ity o f capsule 100 13:00: First dose [place] mg 00 on [facility] 10/27/19 at Branch 0800, Until Discontinu ed, Routine Sliding 2020-0 Yes Subcutaneo Univ ers Scale 4-14 us, TID ity of Insulin - 13:00: MEALS+HS, You as Aspart 00 First dose Medical (NOVOLOG) + on [facility] 10/27/19 at Testing 0800, Until Discontinu ed, Routine aspirin 2020-0 Yes 81mg 81 mg, Univers chewable 4-14 Oral, QAM ity of tablet 81 09:15: WITH [place] mg 00 BREAKFAST, Medical First dose Branch on [facility] 10/27/19 at 0415, Until Discontinu ed, Routine ondansetron 2020-0 Yes 4mg 4 mg, Slow Univers (ZOFRAN 4-14 IV Push, ity of (PF)) 08:54: Q6HPRN, [place] injection 4 30 Starting Medi lizzy mg [...] IV ity of (D50W) 08:53: Push, PRN, [place] injection 48 Starting Medica l 25 mL e Branch 10/27/19 at 0353, Until Discontinu ed, KATHY, Blood Glucose < or = 70 mg/dL and patient is unable to swallow or has mental status changes. dextrose 50 2020-0 2020- No 50mL 50 mL, Uni vers % in water 10-2614 Intravenou it y of (D50W) 04:00: 02:57 s, ONCE, 1 [place] injection 00 :00 dose, Mon Medic al 50 mL 10/26/19 at Branch 2300, STAT ondansetron 2020-0 2020- No 8mg 8 mg, Univ ers (ZOFRAN-ODT 10-26 Oral, ity of ) 03:00: 02:04 ONCE, 1 [place] disintegrat 00 :00 dose, Mon Med ical ing tablet 10/26/19 at [facility] 8 mg 2200, KATHY sodium 2020-0 2020- No [id number] 15g Take 60 mL Univers polystyrene 10-2516 by mouth ity of sulfonate 00:00: 04:59 daily for [place] 15 gram/60 00 :00 2 doses. Medic al mL Branch suspension sodium 2020-0 2020- No [id number] 15g Take 60 mL [facility] polystyrene 10-2515 by mouth ity of sulfonate 00:00: 00:00 daily for [place] 15 gram/60 00 :00 2 doses. Medic al mL Branch suspension metoprolol 2020-0 2020- No 50mg Take 50 mg [facility] succinate 10-18-06 by mouth ity o f 50 mg CSpX 21:11: 00:00 daily. [facility] 36 :00 Medical Branch spironolact 2020-0 2020- No 25mg Take 25 mg [facility] one 25 mg 10-18-06 by mouth ity o f tablet 21:11: 00:00 daily. [place] 36 :00 Medical Branch metoprolol 2020-0 2020- No 50mg Take 50 mg [facility] succinate 10-18-06 by mouth ity o f 50 mg CSpX 21:11: 00:00 daily. [facility] s 36 :00 Medical Branch spironolact 2020-0 2020- No 25mg Take 25 mg [facility] one 25 mg 10-18-06 by mouth ity o f tablet 21:11: 00:00 daily. [place] 36 :00 Medical Branch clopidogreL 2020-0 Yes [...] by ity of tablet 00:00: mouth at [place] 00 bedtime. Medical Branch metoprolol 2020-0 Yes 50mg Take 50 mg U nivers succinate 4-06 by mouth ity of 50 mg CSpX 00:00: daily. [place] Medical Branch spironolact 2020-0 Yes 25mg Take [...] by ity of tablet 00:00: mouth at [place] 00 bedtime. Medical Branch spironolact 2020-0 Yes [...] by ity of tablet 00:00: mouth at [place] 00 bedtime. Medical Branch metoprolol Yes 50mg Take 1 Unive rs succinate 10-18 tablet by ity o f XL 50 mg 24 00:00: mouth [place] hr tablet 00 daily. Medical Branch clopidogreL 2020- No 75mg Take 1 Uni vers 75 [...] ity of tablet 00:00: 00:00 mouth at [place] 00 :00 bedtime. Medical Branch metoprolol 2020- No 50mg Take 1 Univ ers succinate 10-18 tablet by ity of XL 50 mg 24 00:00: 00:00 [place] hr tablet 00 :00 daily. Medical Branch clopidogreL 2020- No 75mg Take 1 Uni vers 75 [...] ity of tablet 00:00: 00:00 mouth at [place] 00 :00 bedtime. Medical Branch metoprolol 2020- No 50mg Take 1 Univ ers succinate 10-18 tablet by ity of XL 50 mg 24 00:00: 00:00 mouth [place] hr tablet 00 :00 daily. Medical Branch spironolact 2019- No 25mg Take 1 Uni vers one 25 mg 10-18-15 tablet by ity of tablet 00:00: 00:00 mouth [place] 00 :00 daily. Medical Branch metoprolol 2019- No 50mg Take 50 mg [facility] succinate 10-18- by mouth ity o f 50 mg CSpX 00:00: 00:00 [place]. [place] 00 :00 [facility] metoprolol 2020-0 2020- No 50mg Take 50 mg [facility] succinate 10-18-06 by mouth ity o f 50 mg CSpX 00:00: 00:00 [place]. [place] 00 :00 [facility] metoprolol 2020-0 Yes 50mg Take 50 mg U nivers succinate 3-19 by mouth ity of 50 mg CSpX 23:09: daily. [address] spironolact 2020-0 Yes 25mg Take 25 mg [facility] one 25 mg 3-19 by mouth ity of tablet 23:09: daily. [address] insulin NPH 2020-0 Yes 18U inject 18 U nivers human 3-19 Units ity of isophane 23:09: [place] (HUMULIN N 16 skin 2 Medical NPH INSULIN (two) Branch KWIKPEN SC) times daily. metoprolol 2020-0 Yes 50mg Take 50 mg U nivers succinate 3-19 by mouth ity of 50 mg CSpX 23:09: daily. [address] spironolact 2020-0 Yes 25mg Take 25 mg [facility] one 25 mg 3-19 by mouth ity of tablet 23:09: daily. [address] insulin NPH 2020-0 Yes 18U inject [...] it y of 16:32: 00:00 mouth 2 [place] (BACTRIM 29 :00 (two) Medical DS) 800-160 times Branch mg per daily. tablet amoxicillin 2020-0 Yes 1{tbl} 1 tablet, Univers -clavulanat 3-19 Oral, ity of e 15:30: Q12H, [place] (AUGMENTIN) 00 First dose Me dical 875-125 mg on Sat per tablet 10/01/19 at 1 tablet 1030, Until Discontinu ed, Routine
Reason for Anti-Infec tive: Empiric Therapy for Suspected Infection< br>Empiric Therapy Site: Respirator y
Durat ion of therapy: 72 hours zolpidem 2020-0 Yes 5mg 5 mg, Univers (AMBIEN) 3-19 Oral, ity of tablet 5 mg 02:19: QHSPRN, You as 25 Starting Medical [facility] 09/30/19 at 2119, Until Discontinu ed, Routine, Insomnia aspirin 2020-0 Yes 81mg 81 mg, Univers chewable 3-19 Oral, QHS, ity o f tablet 81 02:00: First dose [place] mg 00 on [facility] 09/30/19 at Branch 2100, Until Discontinu ed, Routine silver 2020-0 Yes Topical, Univers sulfADIAZIN 3-19 BID, First it y of E 01:00: dose on [place] (SILVADENE) 00 Sat Medical 1 % cream 09/30/19 at Bran ch 2000, Until Discontinu ed, Routine ferrous 2020-0 Yes [id number] 325mg Take 1 Un michael sulfate 3-19 tablet by ity of (FERROUSUL) 00:00: mouth 3 [place] 325 mg (65 00 (three) Medica l mg iron) times Branch tablet daily with meals. ferrous 2020-0 Yes [id number] 325mg Take 1 Un [place]ichael sulfate 3-19 tablet by ity of (FERROUSUL) 00:00: mouth 3 [place] 325 mg (65 00 (three) Medica l mg iron) times Branch tablet daily with meals. ferrous 2020-0 Yes [id number] 325mg Take 1 Un [place] sulfate 3-19 tablet by ity of (FERROUSUL) 00:00: mouth 3 [place] 325 mg (65 00 (three) Medica l mg iron) times Branch tablet daily with meals. ferrous 2020-0 Yes [id number] 325mg Take 1 Un [place] sulfate 3-19 tablet by ity of (FERROUSUL) 00:00: mouth 3 [place] 325 mg (65 00 (three) Medica l mg iron) times Branch tablet daily with meals. ferrous 2020-0 Yes [id number] 325mg Take 1 Un [place] sulfate 3-19 tablet by ity of (FERROUSUL) 00:00: mouth 3 [place] 325 mg (65 00 (three) Medica l mg iron) times Branch tablet daily with meals. ferrous 2020-0 Yes [id number] 325mg Take 1 Un [place] sulfate 3-19 tablet by ity of (FERROUSUL) 00:00: mouth 3 [place] 325 mg (65 00 (three) Medica l mg iron) times Branch tablet daily with meals. ferrous 2020-0 Yes [id number] 325mg Take 1 Un [place] sulfate 3-19 tablet by ity of (FERROUSUL) 00:00: mouth 3 [place] 325 mg (65 00 (three) Medica l mg iron) times Branch tablet daily with meals. ferrous 2020-0 Yes [id number] 325mg Take 1 Un [place] sulfate 3-19 tablet by ity of (FERROUSUL) 00:00: mouth 3 [place] 325 mg (65 00 (three) Medica l mg iron) times Branch tablet daily with meals. ferrous 2020-0 Yes [id number] 325mg Take 1 Un [place] sulfate 3-19 tablet by ity of (FERROUSUL) 00:00: mouth 3 [place] 325 mg (65 00 (three) Medica l mg iron) times Branch tablet daily with meals. ferrous 2020-0 Yes [id number] 325mg Take 1 Un [place] sulfate 3-19 tablet by ity of (FERROUSUL) 00:00: mouth 3 [place] 325 mg (65 00 (three) Medica l mg iron) times Branch tablet daily with meals. ferrous 2020-0 Yes [id number] 325mg Take 1 Un [place] sulfate 3-19 tablet by ity of (FERROUSUL) 00:00: mouth 3 [place] 325 mg (65 00 (three) Medica l mg iron) times Branch tablet daily with meals. ferrous 2020-0 Yes [id number] 325mg Take 1 Un [place] sulfate 3-19 tablet by ity of (FERROUSUL) 00:00: mouth 3 [place] 325 mg (65 00 (three) Medica l mg iron) times Branch tablet daily with meals. ferrous 2020-0 Yes [id number] 325mg Take 1 Un [place] sulfate 3-19 tablet by ity of (FERROUSUL) 00:00: mouth 3 [place] 325 mg (65 00 (three) Medica l mg iron) times Branch tablet daily with meals. ferrous 2020-0 Yes [id number] 325mg Take 1 Un [place] sulfate 3-19 tablet by ity of (FERROUSUL) 00:00: mouth 3 [place] 325 mg (65 00 (three) Medica l mg iron) times Branch tablet daily with meals. ferrous 2020-0 Yes [id number] 325mg Take 1 Un [place] sulfate 3-19 tablet by ity of (FERROUSUL) 00:00: mouth 3 [place] 325 mg (65 00 (three) Medica l mg iron) times Branch tablet daily with meals. ferrous 2020-0 Yes [id number] 325mg Take 1 Un [place] sulfate 3-19 tablet by ity of (FERROUSUL) 00:00: mouth 3 [place] 325 mg (65 00 (three) Medica l mg iron) times Branch tablet daily with meals. ferrous 2020-0 Yes [id number] 325mg Take 1 Un [place] sulfate 3-19 tablet by ity of (FERROUSUL) 00:00: mouth 3 [place] 325 mg (65 00 (three) Medica l mg iron) times Branch tablet daily with meals. ferrous 2020-0 Yes [id number] 325mg Take 1 Un [place] sulfate 3-19 tablet by ity of (FERROUSUL) 00:00: mouth 3 [place] 325 mg (65 00 (three) Medica l mg iron) times Branch tablet daily with meals. ferrous 2020-0 Yes [id number] 325mg Take 1 Un [place] sulfate 3-19 tablet by ity of (FERROUSUL) 00:00: mouth 3 [place] 325 mg (65 00 (three) Medica l mg iron) times Branch tablet daily with meals. ferrous 2020-0 Yes [id number] 325mg Take 1 Un [place] sulfate 3-19 tablet by ity of (FERROUSUL) 00:00: mouth 3 [place] 325 mg (65 00 (three) Medica l mg iron) times Branch tablet daily with meals. ferrous 2020-0 Yes [id number] 325mg Take 1 Un [place] sulfate 3-19 tablet by ity of (FERROUSUL) 00:00: mouth 3 [place] 325 mg (65 00 (three) Medica l mg iron) times Branch tablet daily with meals. ferrous 2020-0 Yes [id number] 325mg Take 1 Un [place] sulfate 3-19 tablet by ity of (FERROUSUL) 00:00: mouth 3 [place] 325 mg (65 00 (three) Medica l mg iron) times Branch tablet daily with meals. ferrous 2020-0 Yes [id number] 325mg Take 1 Un [place] sulfate 3-19 tablet by ity of (FERROUSUL) 00:00: mouth 3 [place] 325 mg (65 00 (three) Medica l mg iron) times Branch tablet daily with meals. ferrous 2020-0 Yes [id number] 325mg Take 1 Un [place] sulfate 3-19 tablet by ity of (FERROUSUL) 00:00: mouth 3 [place] 325 mg (65 00 (three) Medica l mg iron) times Branch tablet daily with meals. ferrous 2020-0 Yes [id number] 325mg Take 1 Un [place] sulfate 3-19 tablet by ity of (FERROUSUL) 00:00: mouth 3 [place] 325 mg (65 00 (three) Medica l mg iron) times Branch tablet daily with meals. ferrous 2020-0 Yes [id number] 325mg Take 1 Un [place] sulfate 3-19 tablet by ity of (FERROUSUL) 00:00: mouth 3 [place] 325 mg (65 00 (three) Medica l mg iron) times Branch tablet daily with meals. ferrous 2020-0 Yes [id number] 325mg Take 1 Un [place] sulfate 3-19 tablet by ity of (FERROUSUL) 00:00: mouth 3 [place] 325 mg (65 00 (three) Medica l mg iron) times Branch tablet daily with meals. ferrous 2020-0 Yes [id number] 325mg Take 1 Un [place] sulfate 3-19 tablet by ity of (FERROUSUL) 00:00: mouth 3 You [place] 325 mg (65 00 (three) Medica l mg iron) times Branch tablet daily with meals. ferrous 2020-0 Yes [id number] 325mg Take 1 Un [place] sulfate 3-19 tablet by ity of (FERROUSUL) 00:00: mouth 3 You as 325 mg (65 00 (three) Medica l mg iron) times Branch tablet daily with meals. ferrous 2020-0 Yes [id number] 325mg Take 1 Un [place] sulfate 3-19 tablet by ity of (FERROUSUL) 00:00: mouth 3 [place] 325 mg (65 00 (three) Medica l mg iron) times Branch tablet daily with meals. ferrous 2020-0 Yes [id number] 325mg Take 1 Un michael sulfate 3-19 tablet by ity of (FERROUSUL) 00:00: mouth 3 You as 325 mg (65 00 (three) Medica l mg iron) times Branch tablet daily with meals. ferrous 2020-0 Yes [id number] 325mg Take 1 Un [place] sulfate 3-19 tablet by ity of (FERROUSUL) 00:00: mouth 3 [place] 325 mg (65 00 (three) Medica l mg iron) times Branch tablet daily with meals. ferrous 2020-0 Yes [id number] 325mg Take 1 Un [place] sulfate 3-19 tablet by ity of (FERROUSUL) 00:00: mouth 3 You [place] 325 mg (65 00 (three) Medica l mg iron) times Branch tablet daily with meals. ferrous 2020-0 Yes [id number] 325mg Take 1 Un [place] sulfate 3-19 tablet by ity of (FERROUSUL) 00:00: mouth 3 You as 325 mg (65 00 (three) Medica l mg iron) times Branch tablet daily with meals. ferrous 2020-0 Yes [id number] 325mg Take 1 Un [place] sulfate 3-19 tablet by ity of (FERROUSUL) 00:00: mouth 3 You as 325 mg (65 00 (three) Medica l mg iron) times Branch tablet daily with meals. ferrous 2020-0 Yes [id number] 325mg Take 1 Un [place] sulfate 3-19 tablet by ity of (FERROUSUL) 00:00: mouth 3 You as 325 mg (65 00 (three) Medica l mg iron) times Branch tablet daily with meals. ferrous 2020-0 Yes [id number] 325mg Take 1 Un michael sulfate 3-19 tablet by ity of (FERROUSUL) 00:00: mouth 3 You as 325 mg (65 00 (three) Medica l mg iron) times Branch tablet daily with meals. ferrous 2020-0 Yes [id number] 325mg Take 1 Un [place] sulfate 3-19 tablet by ity of (FERROUSUL) 00:00: mouth 3 You as 325 mg (65 00 (three) Medica l mg iron) times Branch tablet daily with meals. ferrous Yes [id number] 325mg Take 1 Un michael sulfate 3-19 tablet by ity of (FERROUSUL) 00:00: mouth 3 You as 325 mg (65 00 (three) Medica l mg iron) times Branch tablet daily with meals. ferrous 2020-0 Yes [id number] 325mg Take 1 Un michael sulfate 3-19 tablet by ity of (FERROUSUL) 00:00: mouth 3 You as 325 mg (65 00 (three) Medica l mg iron) times Branch tablet daily with meals. ferrous 2020- No [id number] 325mg Take 1 U nivers sulfate 3-19 04-27 tablet by ity of (FERROUSUL) 00:00: 00:00 mouth 3 [place] 325 mg (65 00 :00 (three) Medica l mg iron) times Branch tablet daily with meals. ferrous 2020- No [id number] 325mg Take 1 U nivers sulfate 3-19 [...] Yes 3mL 3 mL, Unive rs -albuterol 18 Inhalation ity of (DUONEB) 21:01: , Q6HPRN, [...] Oral, ity of tablet 20 14:00: DAILY, [place] mg 00 First dose Medical on Sat Branch 09/30/19 at 0900, Until Discontinu ed, Routine metoprolol 2020-0 Yes 50mg 50 mg, Unive rs succinate 18 Oral, ity of XL (TOPROL 14:00: DAILY, [place] XL) tablet 00 First dose Med ical 50 mg on Sat Branch 09/30/19 at 0900, Until Discontinu ed insulin NPH 2020-0 Yes 15U 15 Units, U nivers (HUMULIN N) 18 Subcutaneo it y of injection 14:00: , [place] 15 Units 00 QAM+PM, Medical First dose Branch on Sat09/30/19 at 0900, Until Discontinu ed clopidogreL 2020-0 Yes 75mg 75 mg, Univ ers (PLAVIX) 18 Oral, ity of tablet 75 14:00: DAILY, [place] mg 00 First dose Medical on Sat09/30/19 at 0900, Until Discontinu ed, Routine sodium [...] DE LA PAZ Sliding 2020-0 Yes Subcutaneo Univ ers Scale 3-18 us, TID ity of Insulin - 13:00: MEALS+HS, You as Lispro 00 First dose Medical (HumaLOG) + on Sat [facility] 09/30/19 at Testing 0800, Until Discontinu ed, Routine docusate 2020-0 Yes 100mg 100 mg, Unive rs (COLACE) 3-18 Oral, BID, ity o f capsule 100 13:00: First dose [place] mg 00 on Sat [facility] 09/30/19 at Branch 0800, Until Discontinu ed, Routine ferrous 2020-0 Yes 325mg 325 mg, Univer s sulfate -18 Oral, TID ity of tablet 325 13:00: MEALS, [place] mg 00 First dose Medical on Sat [place] 09/30/19 at 0800, Until Discontinu ed, Routine NaCl 0.9% 2020-0 2020- No 1000mL at 50 [facility] ers (NS) IV 09-29 03-18 mL/hr, IV ity of infusion 03:00: 15:47 Infusion, You as 1,000 mL 00 :11 CONTINUOUS Medic al , Starting Branch [facility] 09/29/19 at 2200, Until Sat09/30/19 at 1047, Routine melatonin 2020-0 Yes 3mg 3 mg, Univers (MELATIN) 3-18 Oral, QHS, ity of tablet 3 mg 02:30: First dose [place] on [facility] 09/29/19 at Branch 2130, Until Discontinu ed, Routine atorvastati 2020-0 Yes 40mg 40 mg, Univ ers n (LIPITOR) 3-18 Oral, QHS, it y of tablet 40 02:00: First dose [place] mg 00 on [facility] 09/29/19 at Branch 2100, Until Discontinu ed, Routine metoprolol 2020-0 Yes 50mg Take 50 mg U nivers succinate 3-18 by mouth ity of 50 mg CSpX 01:49: daily. [address] spironolact 2020-0 Yes 25mg Take 25 mg Univers one 25 mg 3-18 by mouth ity of tablet 01:49: daily. [place] [address] Medical Branch insulin NPH 2020-0 Yes 18U inject 18 U nivers human 3-18 Units ity of isophane 01:49: [place] (HUMULIN N 18 skin 2 Medical NPH INSULIN (two) Branch KWIKPEN SC) times daily. sulfamethox 2020-0 Yes 1{tbl} Take 1 Un michael azole-trime 3-18 tablet by ity of thoprim 01:49: mouth 2 [place] (BACTRIM 18 (two) Medical DS) 800-160 times Branch mg per daily. tablet metoprolol 2020-0 Yes 50mg Take 50 mg U nivers succinate 3-18 by mouth ity of 50 mg CSpX 01:49: daily. [place] [address] Medical Branch spironolact 2020-0 Yes 25mg Take 25 mg Univers one 25 mg 3-18 by mouth ity of tablet 01:49: daily. [place] [address] Medical Branch insulin NPH 2020-0 Yes 18U inject 18 U nivers human 3-18 Units ity of isophane 01:49: [place] (HUMULIN N 18 skin 2 Medical NPH INSULIN (two) Branch KWIKPEN SC) times daily. ondansetron 2020-0 Yes 4mg 4 mg, Slow Univers (ZOFRAN 3-18 IV Push, ity of (PF)) 01:47: Q6HPRN, [place] injection 4 45 Starting Medi lizzy mg e Branch 09/29/19 at 2046, Until Discontinu ed, Routine, Nausea and Vomiting (N/V) HYDROcodone 2020-0 2020- No 1{tbl} 1 tablet, Univers -acetaminop 3-18 -20 Oral, ity of hen (NORCO 01:47: 01:46 Q6HPRN, You as 5) 5-325 mg 37 :37 Starting Medi lizzy tablet 1 Tue Branch tablet 09/29/19 at 2046, Until [place] 10/01/19 at 2045, Routine, Pain (scale 4-6) acetaminoph 2020-0 Yes 650mg 650 mg, Un michael en 3-18 Oral, ity of (TYLENOL) 01:47: Q6HPRN, [place] tablet 650 36 Starting Medic al mg Tue Branch 09/29/19 at 2046, Until Discontinu ed, Routine, Pain (scale 1-3) nitroglycer 2020-0 Yes .4mg 0.4 mg, Uni vers in 09-29 Sublingual ity of (NITROSTAT) 01:46: , Q5MIN You as sublingual 06 PRN, Medical tablet 0.4 Starting Branc h mg [facility] 09/29/19 at 2045, Until Discontinu ed, Routine, Chest pain furosemide 2020-0 2020- No 40mg 40 mg, IV U nivers (LASIX) 18 -17 Push, ity of injection 00:00: 23:22 ONCE, 1 [place] 40 mg 00 :00 dose, [facility] 09/29/19 at Branch 1900, KATHY Sulfamethox Sulfamethox 2020-0 Yes M.A. TAKE 1 [facility] azole-Trime azole-Trime -17 TABLET ity of thoprim thoprim 00:00: TWICE [place] 800-160 MG 800-160 MG 00 DAILY. for Physici Oral Tablet Oral Tablet 7 days ans metoprolol 2020-0 Yes 50mg Take 50 mg U nivers succinate 3-16 by mouth ity of 50 mg CSpX 18:06: daily. [address] spironolact 2020-0 Yes 25mg Take 25 mg Univers one 25 mg 3-16 by mouth ity of tablet 18:06: daily. [address] insulin NPH 2020-0 Yes 18U inject 18 U nivers human 3-16 Units ity of isophane 18:06: [place] the [place] (HUMULIN N 02 skin 2 Medical NPH INSULIN (two) Branch KWIKPEN SC) times daily. metoprolol 2020-0 Yes 50mg Take 50 mg U nivers succinate 3-16 by mouth ity of 50 mg CSpX 18:06: daily. [address] spironolact 2020-0 Yes 25mg Take 25 mg Univers one 25 mg 3-16 by mouth ity of tablet 18:06: daily. [address] insulin NPH 2020-0 Yes 18U inject 18 U nivers human 3-16 Units ity of isophane 18:06: [place] (HUMULIN N 02 skin 2 Medical NPH INSULIN (two) Branch KWIKPEN SC) times daily. sulfamethox 2020-0 2020- No [id number] 1{tbl} Take 1 Univers azole-trime 09-20-17 tablet by it y of thoprim 00:00: 04:59 mouth 2 [place] (BACTRIM 00 :00 (two) Medical DS) 800-160 times Branch mg per daily for tablet 7 days. sulfamethox 2020-0 2020- No [id number] 1{tbl} Take 1 Univers azole-trime 09-20-17 tablet by it y of thoprim 00:00: 04:59 mouth 2 [place] (BACTRIM 00 :00 (two) Medical DS) 800-160 times Branch mg per daily for tablet 7 days. sulfamethox 2020-0 2020- No [id number] 1{tbl} Take 1 Univers azole-trime 09-20- tablet by it y of thoprim 00:00: 04:59 mouth 2 [place] (BACTRIM 00 :00 (two) Medical DS) 800-160 times Branch mg per daily for tablet 7 days. ondansetron 2019-0 2020- No 4mg 4 mg, Univ ers [...] ty of nus 02:15: 02:15 lar, ONCE, [place] (ADACEL) 00 :00 1 dose, Medical injection 09/18/19 Bran ch 0.5 mL at 2014, Routine ondansetron 2020-0 Yes [id number] 4mg Take 1 Univers 4 mg 3-06 tablet by ity of disintegrat 00:00: mouth [place] ing tablet 00 every 8 Medica l (eight) Branch hours as needed for Nausea and Vomiting (N/V) for up to 15 doses. ondansetron 2020-0 Yes [id number] 4mg Take 1 Univers 4 mg 3-06 tablet by ity of disintegrat 00:00: mouth [place] ing tablet 00 every 8 Medica l (eight) Branch hours as needed for Nausea and Vomiting (N/V) for up to 15 doses. ondansetron 2020-0 Yes [id number] 4mg Take 1 Univers 4 mg 3-06 tablet by ity of disintegrat 00:00: mouth [place] ing tablet 00 every 8 Medica l (eight) Branch hours as needed for Nausea and Vomiting (N/V) for up to 15 doses. ondansetron 2020-0 Yes [id number] 4mg Take 1 Univers 4 mg 3-06 tablet by ity of disintegrat 00:00: mouth [place] ing tablet 00 every 8 Medica l (eight) Branch hours as needed for Nausea and Vomiting (N/V) for up to 15 doses. ondansetron 2020-0 Yes [id number] 4mg Take 1 Univers 4 mg 3-06 tablet by ity of disintegrat 00:00: mouth [place] ing tablet 00 every 8 Medica l (eight) Branch hours as needed for Nausea and Vomiting (N/V) for up to 15 doses. ondansetron 2020-0 Yes [id number] 4mg Take 1 Univers 4 mg 3-06 tablet by ity of disintegrat 00:00: mouth [place] ing tablet 00 every 8 Medica l (eight) Branch hours as needed for Nausea and Vomiting (N/V) for up to 15 doses. ondansetron 2020-0 Yes [id number] 4mg Take 1 Univers 4 mg 3-06 tablet by ity of disintegrat 00:00: mouth [place] ing tablet 00 every 8 Medica l (eight) Branch hours as needed for Nausea and Vomiting (N/V) for up to 15 doses. ondansetron 2020-0 Yes [id number] 4mg Take 1 Univers 4 mg 3-06 tablet by ity of disintegrat 00:00: mouth [place] ing tablet 00 every 8 Medica l (eight) Branch hours as needed for Nausea and Vomiting (N/V) for up to 15 doses. ondansetron 2020-0 Yes [id number] 4mg Take 1 Univers 4 mg 3-06 tablet by ity of disintegrat 00:00: mouth [place] ing tablet 00 every 8 Medica l (eight) Branch hours as needed for Nausea and Vomiting (N/V) for up to 15 doses. ondansetron 2020-0 Yes [id number] 4mg Take 1 Univers 4 mg 3-06 tablet by ity of disintegrat 00:00: mouth [place] ing tablet 00 every 8 Medica l (eight) Branch hours as needed for Nausea and Vomiting (N/V) for up to 15 doses. ondansetron 2020-0 Yes [id number] 4mg Take 1 Univers 4 mg 3-06 tablet by ity of disintegrat 00:00: mouth [place] ing tablet 00 every 8 Medica l (eight) Branch hours as needed for Nausea and Vomiting (N/V) for up to 15 doses. ondansetron 2020-0 Yes [id number] 4mg Take 1 Univers 4 mg 3-06 tablet by ity of disintegrat 00:00: mouth [place] ing tablet 00 every 8 Medica l (eight) Branch hours as needed for Nausea and Vomiting (N/V) for up to 15 doses. ondansetron 2020-0 Yes [id number] 4mg Take 1 Univers 4 mg 3-06 tablet by ity of disintegrat 00:00: mouth [place] ing tablet 00 every 8 Medica l (eight) Branch hours as needed for Nausea and Vomiting (N/V) for up to 15 doses. ondansetron 2020-0 Yes [id number] 4mg Take 1 Univers 4 mg 3-06 tablet by ity of disintegrat 00:00: mouth [place] ing tablet 00 every 8 Medica l (eight) Branch hours as needed for Nausea and Vomiting (N/V) for up to 15 doses. ondansetron 2020-0 Yes [id number] 4mg Take 1 Univers 4 mg 3-06 tablet by ity of disintegrat 00:00: mouth [place] ing tablet 00 every 8 Medica l (eight) Branch hours as needed for Nausea and Vomiting (N/V) for up to 15 doses. ondansetron 2020-0 Yes [id number] 4mg Take 1 Univers 4 mg 3-06 tablet by ity of disintegrat 00:00: mouth [place] ing tablet 00 every 8 Medica l (eight) Branch hours as needed for Nausea and Vomiting (N/V) for up to 15 doses. ondansetron 2020-0 Yes [id number] 4mg Take 1 Univers 4 mg 3-06 tablet by ity of disintegrat 00:00: mouth [place] ing tablet 00 every 8 Medica l (eight) Branch hours as needed for Nausea and Vomiting (N/V) for up to 15 doses. ondansetron 2020-0 Yes [id number] 4mg Take 1 Univers 4 mg 3-06 tablet by ity of disintegrat 00:00: mouth [place] ing tablet 00 every 8 Medica l (eight) Branch hours as needed for Nausea and Vomiting (N/V) for up to 15 doses. ondansetron 2020-0 Yes [id number] 4mg Take 1 Univers 4 mg 3-06 tablet by ity of disintegrat 00:00: mouth [place] ing tablet 00 every 8 Medica l (eight) Branch hours as needed for Nausea and Vomiting (N/V) for up to 15 doses. ondansetron 2020-0 Yes [id number] 4mg Take 1 Univers 4 mg 3-06 tablet by ity of disintegrat 00:00: mouth [place] ing tablet 00 every 8 Medica l (eight) Branch hours as needed for Nausea and Vomiting (N/V) for up to 15 doses. ondansetron 2020-0 Yes [id number] 4mg Take 1 [facility] 4 mg 3-06 tablet by ity of disintegrat 00:00: mouth [place] ing tablet 00 every 8 Medica l (eight) Branch hours as needed for Nausea and Vomiting (N/V) for up to 15 doses. ondansetron 2020-0 Yes [id number] 4mg Take 1 Univers 4 mg 3-06 tablet by ity of disintegrat 00:00: mouth [place] ing tablet 00 every 8 Medica l (eight) Branch hours as needed for Nausea and Vomiting (N/V) for up to 15 doses. ondansetron 2020-0 Yes [id number] 4mg Take 1 Univers 4 mg 3-06 tablet by ity of disintegrat 00:00: mouth [place] ing tablet 00 every 8 Medica l (eight) Branch hours as needed for Nausea and Vomiting (N/V) for up to 15 doses. ondansetron 2020-0 Yes [id number] 4mg Take 1 Univers 4 mg 3-06 tablet by ity of disintegrat 00:00: mouth [place] ing tablet 00 every 8 Medica l (eight) Branch hours as needed for Nausea and Vomiting (N/V) for up to 15 doses. ondansetron 2020-0 Yes [id number] 4mg Take 1 Univers 4 mg 3-06 tablet by ity of disintegrat 00:00: mouth [place] ing tablet 00 every 8 Medica l (eight) Branch hours as needed for Nausea and Vomiting (N/V) for up to 15 doses. ondansetron 2020-0 Yes [id number] 4mg Take 1 [facility] 4 mg 3-06 tablet by ity of disintegrat 00:00: mouth [place] ing tablet 00 every 8 Medica l (eight) Branch hours as needed for Nausea and Vomiting (N/V) for up to 15 doses. ondansetron 2020-0 Yes [id number] 4mg Take 1 [facility] 4 mg 3-06 tablet by ity of disintegrat 00:00: mouth [place] ing tablet 00 every 8 Medica l (eight) Branch hours as needed for Nausea and Vomiting (N/V) for up to 15 doses. ondansetron 2020-0 Yes [id number] 4mg Take 1 [facility] 4 mg 3-06 tablet by ity of disintegrat 00:00: mouth [place] ing tablet 00 every 8 Medica l (eight) Branch hours as needed for Nausea and Vomiting (N/V) for up to 15 doses. ondansetron 2020-0 Yes [id number] 4mg Take 1 [facility] 4 mg 3-06 tablet by ity of disintegrat 00:00: mouth [place] ing tablet 00 every 8 Medica l (eight) Branch hours as needed for Nausea and Vomiting (N/V) for up to 15 doses. ondansetron 2020-0 Yes [id number] 4mg Take 1 [facility] 4 mg 3-06 tablet by ity of disintegrat 00:00: mouth [place] ing tablet 00 every 8 Medica l (eight) Branch hours as needed for Nausea and Vomiting (N/V) for up to 15 doses. ondansetron 2020-0 Yes [id number] 4mg Take 1 [facility] 4 mg 3-06 tablet by ity of disintegrat 00:00: mouth [place] ing tablet 00 every 8 Medica l (eight) Branch hours as needed for Nausea and Vomiting (N/V) for up to 15 doses. ondansetron 2020-0 Yes [id number] 4mg Take 1 [facility] 4 mg 3-06 tablet by ity of disintegrat 00:00: mouth [place] ing tablet 00 every 8 Medica l (eight) Branch hours as needed for Nausea and Vomiting (N/V) for up to 15 doses. ondansetron 2020-0 Yes [id number] 4mg Take 1 [facility] 4 mg 3-06 tablet by ity of disintegrat 00:00: mouth [place] ing tablet 00 every 8 Medica l (eight) Branch hours as needed for Nausea and Vomiting (N/V) for up to 15 doses. ondansetron 2020-0 Yes [id number] 4mg Take 1 [facility] 4 mg 3-06 tablet by ity of disintegrat 00:00: mouth [place] ing tablet 00 every 8 Medica l (eight) Branch hours as needed for Nausea and Vomiting (N/V) for up to 15 doses. ondansetron 2020-0 Yes [id number] 4mg Take 1 [facility] 4 mg 3-06 tablet by ity of disintegrat 00:00: mouth [place] ing tablet 00 every 8 Medica l (eight) Branch hours as needed for Nausea and Vomiting (N/V) for up to 15 doses. ondansetron 2020-0 Yes [id number] 4mg Take 1 [facility] 4 mg 3-06 tablet by ity of disintegrat 00:00: mouth [place] ing tablet 00 every 8 Medica l (eight) Branch hours as needed for Nausea and Vomiting (N/V) for up to 15 doses. ondansetron 2020-0 Yes [id number] 4mg Take 1 [facility] 4 mg 3-06 tablet by ity of disintegrat 00:00: mouth [place] ing tablet 00 every 8 Medica l (eight) Branch hours as needed for Nausea and Vomiting (N/V) for up to 15 doses. ondansetron 2020-0 Yes [id number] 4mg Take 1 [facility] 4 mg 3-06 tablet by ity of disintegrat 00:00: mouth [place] ing tablet 00 every 8 Medica l (eight) Branch hours as needed for Nausea and Vomiting (N/V) for up to 15 doses. ondansetron 2020-0 Yes [id number] 4mg Take 1 [facility] 4 mg 3-06 tablet by ity of disintegrat 00:00: mouth [place] ing tablet 00 every 8 Medica l (eight) Branch hours as needed for Nausea and Vomiting (N/V) for up to 15 doses. ondansetron 2020-0 Yes [id number] 4mg Take 1 [facility] 4 mg 3-06 tablet by ity of disintegrat 00:00: mouth [place] ing tablet 00 every 8 Medica l (eight) Branch hours as needed for Nausea and Vomiting (N/V) for up to 15 doses. ondansetron 2020-0 Yes [id number] 4mg Take 1 [facility] 4 mg 3-06 tablet by ity of disintegrat 00:00: mouth [place] ing tablet 00 every 8 Medica l (eight) Branch hours as needed for Nausea and Vomiting (N/V) for up to 15 doses. ondansetron 2020-0 Yes [id number] 4mg Take 1 [facility] 4 mg 3-06 tablet by ity of disintegrat 00:00: mouth [place] ing tablet 00 every 8 Medica l (eight) Branch hours as needed for Nausea and Vomiting (N/V) for up to 15 doses. ondansetron 2020-0 Yes [id number] 4mg Take 1 [facility] 4 mg 3-06 tablet by ity of disintegrat 00:00: mouth [place] ing tablet 00 every 8 Medica l (eight) Branch hours as needed for Nausea and Vomiting (N/V) for up to 15 doses. ondansetron 2020-0 Yes [id number] 4mg Take 1 [facility] 4 mg 3-06 tablet by ity of disintegrat 00:00: mouth [place] ing tablet 00 every 8 Medica l (eight) Branch hours as needed for Nausea and Vomiting (N/V) for up to 15 doses. ondansetron 2020-0 Yes [id number] 4mg Take 1 [facility] 4 mg 3-06 tablet by ity of disintegrat 00:00: mouth [place] ing tablet 00 every 8 Medica l (eight) Branch hours as needed for Nausea and Vomiting (N/V) for up to 15 doses. ondansetron 2020-0 Yes [id number] 4mg Take 1 [facility] 4 mg 3-06 tablet by ity of disintegrat 00:00: mouth [place] ing tablet 00 every 8 Medica l (eight) Branch hours as needed for Nausea and Vomiting (N/V) for up to 15 doses. ondansetron 2020-0 1- No [id number] 4mg Take 1 [facility] 4 mg 3-06 [...] DAILY. FOR ans 7 DAYS Lisinopril Lisinopril 2020-0 Yes M.A. Q0.5D TAKE 1 [facility] 5 [...] [place] mg 00 First dose Medical on [facility] 09/15/19 at 1700, Until Discontinu ed, Routine metoprolol 2020-0 Yes 50mg Take 50 mg U nivers succinate 3-03 by mouth ity of 50 mg CSpX 20:03: daily. [address] spironolact 2020-0 Yes 25mg Take 25 mg [facility] one 25 mg 3-03 by mouth ity of tablet 20:03: daily. [address] insulin NPH 2020-0 Yes 18U inject 18 U nivers human 3-03 Units ity of isophane 20:03: [place] (HUMULIN N 35 skin 2 Medical NPH INSULIN (two) Branch KWIKPEN SC) times daily. metoprolol 2020-0 Yes 50mg Take 50 mg U nivers succinate 3-03 by mouth ity of 50 mg CSpX 20:03: daily. [address] spironolact 2020-0 Yes 25mg Take 25 mg [facility] one 25 mg 3-03 by mouth ity of tablet 20:03: daily. [address] insulin NPH 2020-0 Yes 18U inject 18 U nivers human 3-03 Units ity of isophane 20:03: [place] (HUMULIN N 35 skin 2 Medical NPH INSULIN (two) Branch KWIKPEN SC) times daily. metoprolol 2020-0 Yes 50mg Take 50 mg U nivers succinate 3-03 by mouth ity of 50 mg CSpX 20:03: daily. [address] spironolact 2020-0 Yes 25mg Take 25 mg [facility] one 25 mg 3-03 by mouth ity of tablet 20:03: daily. [address] insulin NPH 2020-0 Yes 18U inject 18 U nivers human 3-03 Units ity of isophane 20:03: [place] the [place] (HUMULIN N 35 skin 2 Medical NPH INSULIN (two) Branch KWIKPEN SC) times daily. metoprolol 2020-0 Yes 50mg Take 50 mg U nivers succinate 3-03 by mouth ity of 50 mg CSpX 20:03: daily. [address] spironolact 2020-0 Yes 25mg Take 25 mg [facility] one 25 mg 3-03 by mouth ity of tablet 20:03: daily. [address] insulin NPH 2020-0 Yes 18U inject 18 U nivers human 3-03 Units ity of isophane 20:03: [place] (HUMULIN N 35 skin 2 Medical NPH INSULIN (two) Branch KWIKPEN SC) times daily. furosemide 2020-0 2020- No 40mg Take 40 mg [facility] 40 mg 3-03 03-03 by mouth ity of tablet 18:07: 00:00 daily. [place] 59 :00 [facility] Branch doxycycline 2020-0 Yes [id number] 100mg Take 1 [facility] hyclate 100 3-03 9103 capsule by it y of mg capsule 00:00: mouth [place] 00 every 12 Medical (twelve) Branch hours. furosemide 2020-0 Yes [id number] 40mg Take 1 [facility] 40 mg 3-03 9103 tablet by ity of tablet 00:00: mouth [place] 00 every Medical morning Branch and evening. lisinopril 2020-0 Yes [id number] 5mg Take 1 [facility] 5 mg tablet 3-03 9103 tablet by ity of 00:00: mouth 2 [place] 00 (two) Medical times Branch daily. amoxicillin 2020-0 Yes [id number] 1{tbl} Take 1 [facility] -clavulanat 3-03 9103 tablet by ity of e 00:00: mouth 2 [place] (AUGMENTIN) 00 (two) Medical 875-125 mg times Branch per tablet daily. doxycycline 2020-0 Yes [id number] 100mg Take 1 [facility] hyclate 100 3-03 9103 capsule by it y of mg capsule 00:00: mouth [place] 00 every 12 Medical (twelve) Branch hours. furosemide 2020-0 Yes [id number] 40mg Take 1 [facility] 40 mg 3-03 9103 tablet by ity of tablet 00:00: mouth [place] 00 every Medical morning Branch and evening. lisinopril 2020-0 Yes [id number] 5mg Take 1 [facility] 5 mg tablet 3-03 9103 tablet by ity of 00:00: mouth 2 [place] 00 (two) Medical times Branch daily. amoxicillin 2020-0 Yes [id number] 1{tbl} Take 1 [facility] -clavulanat 3-03 9103 tablet by ity of e 00:00: mouth 2 [place] (AUGMENTIN) 00 (two) Medical 875-125 mg times Branch per tablet daily. doxycycline 2020-0 Yes [id number] 100mg Take 1 [facility] hyclate 100 3-03 9103 capsule by it y of mg capsule 00:00: mouth [place] 00 every 12 Medical (twelve) Branch hours. furosemide 2020-0 Yes [id number] 40mg Take 1 [facility] 40 mg 3-03 9103 tablet by ity of tablet 00:00: mouth [place] 00 every Medical morning Branch and evening. lisinopril 2020-0 Yes [id number] 5mg Take 1 [facility] 5 mg tablet 3-03 9103 tablet by ity of 00:00: mouth 2 [place] 00 (two) Medical times Branch daily. amoxicillin 2020-0 Yes [id number] 1{tbl} Take 1 [facility] -clavulanat 3-03 9103 tablet by ity of e 00:00: mouth 2 [place] (AUGMENTIN) 00 (two) Medical 875-125 mg times Branch per tablet daily. doxycycline 2020-0 Yes [id number] 100mg Take 1 [facility] hyclate 100 3-03 9103 capsule by it y of mg capsule 00:00: mouth [place] 00 every 12 Medical (twelve) Branch hours. furosemide 2020-0 Yes [id number] 40mg Take 1 [facility] 40 mg 3-03 9103 tablet by ity of tablet 00:00: mouth [place] 00 every Medical morning Branch and evening. lisinopril 2020-0 Yes [id number] 5mg Take 1 [facility] 5 mg tablet 3-03 9103 tablet by ity of 00:00: mouth 2 [place] 00 (two) Medical times Branch daily. amoxicillin 2020-0 Yes [id number] 1{tbl} Take 1 [facility] -clavulanat 3-03 9103 tablet by ity of e 00:00: mouth 2 [place] (AUGMENTIN) 00 (two) Medical 875-125 mg times Branch per tablet daily. doxycycline 2020-0 Yes [id number] 100mg Take 1 [facility] hyclate 100 3-03 9103 capsule by it y of mg capsule 00:00: mouth [place] 00 every 12 Medical (twelve) Branch hours. furosemide 2020-0 Yes [id number] 40mg Take 1 [facility] 40 mg 3-03 9103 tablet by ity of tablet 00:00: mouth [place] 00 every Medical morning Branch and evening. lisinopril 2020-0 Yes [id number] 5mg Take 1 [facility] 5 mg tablet 3-03 9103 tablet by ity of 00:00: mouth 2 [place] 00 (two) Medical times Branch daily. amoxicillin 2020-0 Yes [id number] 1{tbl} Take 1 [facility] -clavulanat 3-03 9103 tablet by ity of e 00:00: mouth 2 [place] (AUGMENTIN) 00 (two) Medical 875-125 mg times Branch per tablet daily. doxycycline 2020-0 Yes [id number] 100mg Take 1 [facility] hyclate 100 3-03 9103 capsule by it y of mg capsule 00:00: mouth [place] 00 every 12 Medical (twelve) Branch hours. furosemide 2020-0 Yes [id number] 40mg Take 1 [facility] 40 mg 3-03 9103 tablet by ity of tablet 00:00: mouth [place] 00 every Medical morning Branch and evening. furosemide 2020-0 Yes [id number] 40mg Take 1 [facility] 40 mg 3-03 9103 tablet by ity of tablet 00:00: mouth [place] 00 every Medical morning Branch and evening. furosemide 2020-0 Yes [id number] 40mg Take 1 [facility] 40 mg 3-03 9103 tablet by ity of tablet 00:00: mouth [place] 00 every Medical morning Branch and evening. lisinopril 2020-0 Yes [id number] 5mg Take 1 [facility] 5 mg tablet 3-03 9103 tablet by ity of 00:00: mouth 2 [place] 00 (two) Medical times Branch daily. amoxicillin 2020-0 Yes [id number] 1{tbl} Take 1 [facility] -clavulanat 3-03 9103 tablet by ity of e 00:00: mouth 2 [place] (AUGMENTIN) 00 (two) Medical 875-125 mg times Branch per tablet daily. doxycycline 2020-0 Yes [id number] 100mg Take 1 [facility] hyclate 100 3-03 9103 capsule by it y of mg capsule 00:00: mouth [place] 00 every 12 Medical (twelve) Branch hours. furosemide 2020-0 Yes [id number] 40mg Take 1 [facility] 40 mg 3-03 9103 tablet by ity of tablet 00:00: mouth [place] 00 every Medical morning Branch and evening. lisinopril 2020-0 Yes [id number] 5mg Take 1 [facility] 5 mg tablet 3-03 9103 tablet by ity of 00:00: mouth 2 [place] 00 (two) Medical times Branch daily. amoxicillin 2020-0 Yes [id number] 1{tbl} Take 1 [facility] -clavulanat 3-03 9103 tablet by ity of e 00:00: mouth 2 [place] (AUGMENTIN) 00 (two) Medical 875-125 mg times Branch per tablet daily. doxycycline 2020-0 Yes [id number] 100mg Take 1 [facility] hyclate 100 3-03 9103 capsule by it y of mg capsule 00:00: mouth [place] 00 every 12 Medical (twelve) Branch hours. furosemide 2020-0 Yes [id number] 40mg Take 1 [facility] 40 mg 3-03 9103 tablet by ity of tablet 00:00: mouth [place] 00 every Medical morning Branch and evening. lisinopril 2020-0 Yes [id number] 5mg Take 1 [facility] 5 mg tablet 3-03 9103 tablet by ity of 00:00: mouth 2 [place] 00 (two) Medical times Branch daily. amoxicillin 2020-0 Yes [id number] 1{tbl} Take 1 [facility] -clavulanat 3-03 9103 tablet by ity of e 00:00: mouth 2 [place] (AUGMENTIN) 00 (two) Medical 875-125 mg times Branch per tablet daily. furosemide 2020- No [id number] 40mg Take 1 [facility] 40 mg 09-14 9103 tablet by ity of tablet 00:00: 00:00 mouth [place] 00 :00 every Medical morning Branch and evening. furosemide 2019- 2020- No [id number] 40mg Take 1 [facility] 40 mg 09-14 9103 tablet by ity of tablet 00:00: 00:00 mouth [place] 00 :00 every Medical morning Branch and evening. lisinopril 2019- No [id number] 5mg Take 1 [facility] 5 mg tablet 09-14 9103 tablet by it y of 00:00: 00:00 mouth 2 [place] 00 :00 (two) Medical times Branch daily. amoxicillin 2019-2019- No [id number] 1{tbl} Take 1 [facility] -clavulanat 09-14 9103 tablet by it y of e 00:00: 00:00 mouth 2 [place] (AUGMENTIN) 00 :00 (two) Medical 875-125 mg times Branch per tablet daily. doxycycline 2019- No [id number] 100mg Take 1 [facility] hyclate 100 09-14 9103 capsule by i ty of mg capsule 00:00: 00:00 mouth [place] 00 :00 every 12 Medical (twelve) Branch hours. ceFEPIme 2019- Yes 1000mg 1,000 mg, Un michael (MAXIPIME) 09-13 IV ity of 1,000 mg in 17:45: Piggyback, [place] NaCl 0.9% 00 Q12H ABX, Medic al [...] 25 Q6HPRN, Medical 25 mcg Starting Branch [place] 09/13/19 at 205, Until Discontinu ed, Routine, Pain (scale 7-10) azithromyci 2020-0 Yes 500mg 500 mg, Un michael n 3- Oral, ity of (ZITHROMAX) 15:00: DAILY, [place] tablet 500 00 First dose Med ical mg on [facility] 09/13/19 at 0900, Until Discontinu ed, KATHY
Re ason for Anti-Infec tive: Empiric Therapy for Suspected Infection< br>Empiric Therapy Site: Respirator y
Durat ion of therapy: 72 hours enoxaparin 2020-0 Yes 40mg 40 mg, Unive rs (LOVENOX) 09-12 Subcutaneo ity of injection 15:00: us, DAILY, [place] 40 mg 00 First dose Medical on [facility] 09/13/19 at 0900, Until Discontinu ed, Routine insulin NPH 2020-0 Yes 18U 18 Units, U nivers (HUMULIN N) 09-12 Subcutaneo it y of injection 15:00: us, [place] 18 Units 00 QAM+PM, Medical First dose Branch on [place] 09/13/19 at 0900, Until Discontinu ed clopidogreL 2020-0 Yes 75mg 75 mg, Univ ers (PLAVIX) 09-12 Oral, ity of tablet 75 15:00: DAILY, [place] mg 00 First dose Medical on [facility] 09/13/19 at 0900, Until Discontinu ed, Routine aspirin 2020-0 Yes 81mg 81 mg, Univers chewable 09-12 Oral, ity of tablet 81 15:00: DAILY, [place] mg 00 First dose Medical on [facility] 09/13/19 at 0900, Until Discontinu ed, Routine lisinopril 2020-0 Yes 5mg 5 mg, Univer s (PRINIVIL,Z 09-12 Oral, BID, it y of ESTRIL) 14:00: First [place] tablet 5 mg 00 on [facility] 09/13/19 at Branch 0800, Until Discontinu ed, Routine ferrous 2020-0 Yes 325mg 325 mg, Univer s sulfate 09-12 Oral, TID ity of tablet 325 14:00: MEALS, [place] mg 00 First dose Medical on [place] [facility] 09/13/19 at 0800, Until Discontinu ed, Routine insulin 2020-0 Yes 12U 12 Units, Unive rs regular 3 Subcutaneo ity of human [...] 80mg 80 mg, Univ ers n (LIPITOR) 3 Oral, QHS, it y of tablet 80 03:00: First dose [place] mg [address] [facility] Medical 09/12/19 at Branch 2100, Until Discontinu ed, Routine Sliding 2020-0 Yes Subcutaneo Univ ers Scale 3 us, TID ity of Insulin - 03:00: MEALS+HS, [place] as Lispro 00 First dose Medical (HumaLOG) + on Sat Branch [facility] 09/12/19 at Testing 2100, Until Discontinu ed, Routine benzonatate 2020-0 Yes 100mg 100 mg, Un michael (TESSALON 09-12 Oral, ity of PERLES) 02:26: Q6HPRN, [place] capsule 100 20 Starting Medi lizzy mg Sat Branch 09/12/19 at 2026, Until Discontinu ed, Routine, Cough ipratropium 2020-0 Yes .5mg 0.5 mg, Uni vers (ATROVENT) 3 Inhalation ity of 0.02 % 02:00: , QID, [place] nebulizer 00 First dose Medi lizzy solution on Sat Branch 0.5 mg 09/12/19 at 2000, Until Discontinu ed, Routine docusate 2020-0 Yes 100mg 100 mg, Unive rs (COLACE) 09-12 Oral, BID, ity o f capsule 100 02:00: First dose [place] mg [address] [facility] Medical 09/12/19 at Branch 2000, Until Discontinu ed, Routine ondansetron 2020-0 Yes 4mg 4 mg, Slow Univers (ZOFRAN 09-12 IV Push, ity of (PF)) 00:11: Q6HPRN, [place] injection 4 27 Starting Medi lizzy mg Sat Branch 09/12/19 at 1811, Until Discontinu ed, Routine, Nausea and Vomiting (N/V) acetaminoph 2020-0 Yes 650mg 650 mg, Un michael en 09-12 Oral, ity of (TYLENOL) 00:11: Q6HPRN, [place] tablet 650 19 Starting Medic al mg [facility] Branch 09/12/19 at 1811, Until Discontinu ed, Routine, Pain (scale 1-3) nitroglycer 2020-0 Yes .4mg 0.4 mg, Uni vers in 09-12 Sublingual ity of (NITROSTAT) 00:09: , Q5MIN [place] sublingual 52 PRN, Medical tablet 0.4 Starting Branc h mg 09/12/19 at 1809, Until Discontinu ed, Routine, Chest pain heparin 2020-0 2020- No 12U/kg/ 12 Univer s 25,000 [...] at 1215, Until Discontinu ed, Routine heparin 2020-0 2020- No 4000U 4,000 Univers 5,000 Units, ity of unit/mL 18:00: 18:09 Intravenou [place] as injection 00 :00 s, ONCE, 1 Medi lizzy 4,000 Units dose, Sat Bra n[place] 09/12/19 at 1200, Routine azithromyci 2020- No 500mg 500 mg, IV [...] of 1,000 mg in 17:00: 16:57 [place], [place] NaCl 0.9% 00 :00 ONCE, 1 Medical [...] ity of 50 mg CSpX 20:31: daily. [address] spironolact 2020-0 Yes 25mg Take 25 mg Univers one 25 mg 2-24 by mouth ity of tablet 20:31: daily. [address] furosemide 2020-0 Yes 40mg Take 40 mg U nivers 40 mg 2-24 by mouth ity of tablet 20:31: daily. [address] insulin NPH 2019-0 Yes 18U inject 18 U nivers human 2-24 Units ity of isophane 20:31: [place] (HUMULIN N 45 skin 2 Medical NPH INSULIN (two) Branch KWIKPEN SC) times daily. metoprolol 2019-0 Yes 50mg Take 50 mg U nivers succinate 2-24 by mouth ity of 50 mg CSpX 20:31: daily. [address] spironolact 2020-0 Yes 25mg Take 25 mg Univers one 25 mg 2-24 by mouth ity of tablet 20:31: daily. [address] furosemide 2020-0 Yes 40mg Take 40 mg U nivers 40 mg 2-24 by mouth ity of tablet 20:31: daily. [address] insulin NPH 2020-0 Yes 18U inject 18 U nivers human 2-24 Units ity of isophane 20:31: under the [place] (HUMULIN N 45 skin 2 Medical NPH INSULIN (two) Branch KWIKPEN SC) times daily. metoprolol 2020-0 Yes 50mg Take 50 mg U nivers succinate 2-24 by mouth ity of 50 mg CSpX 20:31: daily. [address] spironolact 2020-0 Yes 25mg Take 25 mg [facility] one 25 mg 2-24 by mouth ity of tablet 20:31: daily. [address] furosemide 2020-0 Yes 40mg Take 40 mg U nivers 40 mg 2-24 by mouth ity of tablet 20:31: daily. [address] insulin NPH 2020-0 Yes 18U inject 18 U nivers human 2-24 Units ity of isophane 20:31: under the [place] (HUMULIN N 45 skin 2 Medical NPH INSULIN (two) Branch KWIKPEN SC) times daily. clopidogreL 2020-0 Yes [id number] 75mg Take 1 Univers 75 mg 2-24 tablet by ity of tablet 00:00: mouth [place] 00 daily. [facility] Branch nicotine 14 2020-0 Yes [id number] 1{patch Apply 1 Univers mg/24 hr 2-24 } Patch to ity of patch 00:00: area(s) [place] 00 every 24 Medical ([facility] Branch ur) hours. clopidogreL 2020-0 Yes [id number] 75mg Take 1 [facility] 75 mg 2-24 tablet by ity of tablet 00:00: mouth [place] 00 daily. [facility] nicotine 14 2020-0 Yes [id number] 1{patch Apply 1 Univers mg/24 hr 2-24 } Patch to ity of patch 00:00: area(s) [place] 00 every 24 Medical ([facility] Branch ur) hours. clopidogreL 2020-0 Yes [id number] 75mg Take 1 [facility] 75 mg 2-24 tablet by ity of tablet 00:00: mouth [place] 00 daily. Medical Branch nicotine 14 2020-0 Yes [id number] 1{patch Apply 1 [facility] mg/24 hr 2-24 } Patch to ity of patch 00:00: area(s) [place] 00 every 24 Medical (twentyfo Branch ur) hours. clopidogreL 2020-0 Yes [id number] 75mg Take 1 [facility] 75 mg 2-24 tablet by ity of tablet 00:00: mouth [place] 00 daily. Medical Branch nicotine 14 2020-0 Yes [id number] 1{patch Apply 1 [facility] mg/24 hr 2-24 } Patch to ity of patch 00:00: area(s) [place] 00 every 24 Medical (twentyfo Branch ur) hours. clopidogreL 2020-0 Yes [id number] 75mg Take 1 [facility] 75 mg 2-24 tablet by ity of tablet 00:00: mouth [place] 00 daily. Medical Branch nicotine 14 2020-0 Yes [id number] 1{patch Apply 1 Univers mg/24 hr 2-24 } Patch to ity of patch 00:00: area(s) [place] 00 every 24 Medical ([facility] Branch ur) hours. clopidogreL 2020-0 Yes [id number] 75mg Take 1 [facility] 75 mg 2-24 tablet by ity of tablet 00:00: mouth [place] 00 daily. Medical Branch nicotine 14 2020-0 Yes [id number] 1{patch Apply 1 Univers mg/24 hr 2-24 } Patch to ity of patch 00:00: area(s) [place] 00 every 24 Medical ([facility] Branch ur) hours. clopidogreL 2020-0 Yes [id number] 75mg Take 1 [facility] 75 mg 2-24 tablet by ity of tablet 00:00: mouth [place] 00 daily. Medical Branch nicotine 14 2020-0 Yes [id number] 1{patch Apply 1 [facility] mg/24 hr 2-24 } Patch to ity of patch 00:00: area(s) [place] 00 every 24 Medical (twentyfo Branch ur) hours. clopidogreL 2020-0 Yes [id number] 75mg Take 1 [facility] 75 mg 2-24 tablet by ity of tablet 00:00: mouth [place] 00 daily. Medical Branch nicotine 14 2020-0 Yes [id number] 1{patch Apply 1 Univers mg/24 hr 2-24 } Patch to ity of patch 00:00: area(s) [place] 00 every 24 Medical (twenty-fo Branch ur) hours. nicotine 14 2020-0 Yes [id number] 1{patch Apply 1 Univers mg/24 hr 2-24 } Patch to ity of patch 00:00: [facility](s) [place] 00 every 24 Medical (twenty-fo Branch ur) hours. nicotine 14 2020-0 Yes [id number] 1{patch Apply 1 Univers mg/24 hr 2-24 } Patch to ity of patch 00:00: [facility](s) [place] 00 every 24 Medical (twenty-fo Branch ur) hours. nicotine 14 2020-0 Yes [id number] 1{patch Apply 1 Univers mg/24 hr 2-24 } Patch to ity of patch 00:00: area(s) [place] 00 every 24 Medical (twenty-fo Branch ur) hours. nicotine 14 2020-0 Yes [id number] 1{patch Apply 1 Univers mg/24 hr 2-24 } Patch to ity of patch 00:00: [facility](s) [place] 00 every 24 Medical (twenty-fo Branch ur) hours. nicotine 14 2020-0 Yes [id number] 1{patch Apply 1 Univers mg/24 hr 2-24 } Patch to ity of patch 00:00: [facility](s) [place] 00 every 24 Medical (twenty-fo Branch ur) hours. nicotine 14 2020-0 Yes [id number] 1{patch Apply 1 Univers mg/24 hr 2-24 } Patch to ity of patch 00:00: [facility](s) [place] 00 every 24 Medical (twenty-fo Branch ur) hours. nicotine 14 2020-0 Yes [id number] 1{patch Apply 1 Univers mg/24 hr 2-24 } Patch to ity of patch 00:00: [facility](s) [place] 00 every 24 Medical (twenty-fo Branch ur) hours. nicotine 14 2020-0 Yes [id number] 1{patch Apply 1 Univers mg/24 hr 2-24 } Patch to ity of patch 00:00: [facility](s) [place] 00 every 24 Medical (twenty-fo Branch ur) hours. nicotine 14 2020-0 Yes [id number] 1{patch Apply 1 Univers mg/24 hr 2-24 } Patch to ity of patch 00:00: [facility](s) [place] 00 every 24 Medical (twenty-fo Branch ur) hours. nicotine 14 2020-0 Yes [id number] 1{patch Apply 1 Univers mg/24 hr 2-24 } Patch to ity of patch 00:00: area(s) [place] 00 every 24 Medical (twenty-fo Branch ur) hours. nicotine 14 2020-0 Yes [id number] 1{patch Apply 1 [facility] mg/24 hr 2-24 } Patch to ity of patch 00:00: area(s) [place] 00 every 24 Medical (twenty-fo Branch ur) hours. nicotine 14 2020-0 Yes [id number] 1{patch Apply 1 [facility] mg/24 hr 2-24 } Patch to ity of patch 00:00: area(s) [place] 00 every 24 Medical (twenty-fo Branch ur) hours. nicotine 14 2020-0 Yes [id number] 1{patch Apply 1 [facility] mg/24 hr 2-24 } Patch to ity of patch 00:00: area(s) [place] 00 every 24 Medical (twenty-fo Branch ur) hours. nicotine 14 2020-0 Yes [id number] 1{patch Apply 1 [facility] mg/24 hr 2-24 } Patch to ity of patch 00:00: area(s) [place] 00 every 24 Medical (twenty-fo Branch ur) hours. nicotine 14 2020-0 Yes [id number] 1{patch Apply 1 Univers mg/24 hr 2-24 } Patch to ity of patch 00:00: area(s) [place] 00 every 24 Medical (twenty-fo Branch ur) hours. nicotine 14 2020-0 Yes [id number] 1{patch Apply 1 Univers mg/24 hr 2-24 } Patch to ity of patch 00:00: area(s) [place] 00 every 24 Medical (twenty-fo Branch ur) hours. nicotine 14 2020-0 Yes [id number] 1{patch Apply 1 Univers mg/24 hr 2-24 } Patch to ity of patch 00:00: area(s) [place] 00 every 24 Medical (twenty-fo Branch ur) hours. nicotine 14 2020-0 Yes [id number] 1{patch Apply 1 [facility] mg/24 hr 2-24 } Patch to ity of patch 00:00: area(s) [place] 00 every 24 Medical (twenty-fo Branch ur) hours. nicotine 14 2020-0 Yes [id number] 1{patch Apply 1 [facility] mg/24 hr 2-24 } Patch to ity of patch 00:00: area(s) [place] 00 every 24 Medical (twenty-fo Branch ur) hours. nicotine 14 2020-0 Yes [id number] 1{patch Apply 1 Univers mg/24 hr 2-24 } Patch to ity of patch 00:00: area(s) [place] 00 every 24 Medical (twenty-fo Branch ur) hours. nicotine 14 2020-0 Yes [id number] 1{patch Apply 1 Univers mg/24 hr 2-24 } Patch to ity of patch 00:00: [facility](s) [place] 00 every 24 Medical (twenty-fo Branch ur) hours. nicotine 14 2020-0 Yes [id number] 1{patch Apply 1 Univers mg/24 hr 2-24 } Patch to ity of patch 00:00: [facility](s) [place] 00 every 24 Medical (twenty-fo Branch ur) hours. nicotine 14 2020-0 Yes [id number] 1{patch Apply 1 Univers mg/24 hr 2-24 } Patch to ity of patch 00:00: [facility](s) [place] 00 every 24 Medical (twenty-fo Branch ur) hours. nicotine 14 2019-0 Yes [id number] 1{patch Apply 1 Univers mg/24 hr 2-24 } Patch to ity of patch 00:00: [facility](s) [place] 00 every 24 Medical (twenty-fo Branch ur) hours. nicotine 14 2019-0 Yes [id number] 1{patch Apply 1 Univers mg/24 hr 2-24 } Patch to ity of patch 00:00: [facility](s) [place] 00 every 24 Medical (twenty-fo Branch ur) hours. nicotine 14 2019-0 Yes [id number] 1{patch Apply 1 Univers mg/24 hr 2-24 } Patch to ity of patch 00:00: [facility](s) [place] 00 every 24 Medical (twenty-fo Branch ur) hours. nicotine 14 2020-0 Yes [id number] 1{patch Apply 1 Univers mg/24 hr 2-24 } Patch to ity of patch 00:00: [facility](s) [place] 00 every 24 Medical (twenty-fo Branch ur) hours. nicotine 14 2020-0 Yes [id number] 1{patch Apply 1 Univers mg/24 hr 2-24 } Patch to ity of patch 00:00: [facility](s) [place] 00 every 24 Medical (twenty-fo Branch ur) hours. nicotine 14 2020-0 Yes [id number] 1{patch Apply 1 Univers mg/24 hr 2-24 } Patch to ity of patch 00:00: [facility](s) [place] 00 every 24 Medical (twenty-fo Branch ur) hours. nicotine 14 2020-0 Yes [id number] 1{patch Apply 1 Univers mg/24 hr 2-24 } Patch to ity of patch 00:00: area(s) [place] 00 every 24 Medical (twenty-fo Branch ur) hours. nicotine 14 2020-0 Yes [id number] 1{patch Apply 1 Univers mg/24 hr 2-24 } Patch to ity of patch 00:00: [facility]) [place] 00 every 24 Medical (twenty-fo Branch ur) hours. nicotine 14 2020-0 Yes [id number] 1{patch Apply 1 Univers mg/24 hr 2-24 } Patch to ity of patch 00:00: area(s) [place] 00 every 24 Medical (twenty-fo Branch ur) hours. nicotine 14 2020-0 Yes [id number] 1{patch Apply 1 Univers mg/24 hr 2-24 } Patch to ity of patch 00:00: [facility]) [place] 00 every 24 Medical (twenty-fo Branch ur) hours. nicotine 14 2020-0 Yes [id number] 1{patch Apply 1 Univers mg/24 hr 2-24 } Patch to ity of patch 00:00: [facility](s) [place] 00 every 24 Medical (twenty-fo Branch ur) hours. nicotine 14 2020-0 Yes [id number] 1{patch Apply 1 Univers mg/24 hr 2-24 } Patch to ity of patch 00:00: [facility]) [place] 00 every 24 Medical (twenty-fo Branch ur) hours. nicotine 14 2020-0 Yes [id number] 1{patch Apply 1 Univers mg/24 hr 2-24 } Patch to ity of patch 00:00: [facility]) [place] 00 every 24 Medical (twenty-fo Branch ur) hours. nicotine 14 2020-0 Yes [id number] 1{patch Apply 1 Univers mg/24 hr 2-24 } Patch to ity of patch 00:00: area(s) [place] 00 every 24 Medical (twenty-fo Branch ur) hours. clopidogreL 2020-0 Yes [id number] 75mg Take 1 Univers 75 mg 2-24 tablet by ity of tablet 00:00: mouth [place] 00 daily. Medical Branch nicotine 14 2020-0 Yes [id number] 1{patch Apply 1 Univers mg/24 hr 2-24 } Patch to ity of patch 00:00: area(s) [place] 00 every 24 Medical (twenty-fo Branch ur) hours. clopidogreL 2020-0 Yes [id number] 75mg Take 1 Univers 75 mg 2-24 tablet by ity of tablet 00:00: mouth [place] 00 daily. Medical Branch nicotine 14 2019- Yes [id number] 1{patch Apply 1 Univers mg/24 hr 2-24 } Patch to ity of patch 00:00: [facility] [place] 00 every 24 Medical ([facility] ur) hours. clopidogreL 2020-0 Yes [id number] 75mg Take 1 Univers 75 mg 2-24 tablet by ity of tablet 00:00: mouth [place] 00 daily. Medical Branch nicotine 14 2019- Yes [id number] 1{patch Apply 1 Univers mg/24 hr 2-24 } Patch to ity of patch 00:00: [facility]) [place] 00 every 24 Medical ([facility] ur) hours. clopidogreL 2020-0 Yes [id number] 75mg Take 1 Univers 75 mg 2-24 tablet by ity of tablet 00:00: mouth [place] 00 daily. Medical Branch nicotine 14 2019- Yes [id number] 1{patch Apply 1 Univers mg/24 hr 2-24 } Patch to ity of patch 00:00: [facility] [place] 00 every 24 Medical ([facility] ur) hours. clopidogreL 2020-0 Yes [id number] 75mg Take 1 Univers 75 mg 2-24 tablet by ity of tablet 00:00: mouth [place] 00 daily. Medical Branch nicotine 14 2019- Yes [id number] 1{patch Apply 1 Univers mg/24 hr 2-24 } Patch to ity of patch 00:00: [facility] [place] 00 every 24 Medical ([facility] ur) hours. nicotine 14 2020- No [id number] 1{patch Apply 1 Univers mg/24 hr 2-24 04-10 } Patch to ity of patch 00:00: 00:00 [facility] [place] 00 :00 every 24 Medical ([facility] ur) hours. clopidogreL 2020- 2020- No [id number] 75mg Take 1 Univers 75 mg 2-24 04-06 tablet by ity of tablet 00:00: 00:00 mouth [place] 00 :00 daily. Medical Branch clopidogreL 2019-0 2020- No [id number] 75mg Take 1 Univers 75 mg 2-24 04-06 tablet by ity of tablet 00:00: 00:00 mouth [place] 00 :00 daily. Medical Branch insulin 2019- 2020- No 20U inject 20 Univ ers glargine,hu 2-06 09-23 Units ity of m.rec.anlog 15:33: 00:00 under the [place] (LANTUS 20 :00 skin 2 Medical U-100 (two) Branch INSULIN SC) times daily. insulin 2019-0 2020- No inject Univers aspart 09-06 under the ity of injection 15:33: 00:00 skin [place] 20 :00 before Medical meals. [place] HYDROcodone 2019-0 Yes 1{tbl} 1 tablet, Univers -acetaminop 2- Oral, ity of hen (NORCO 15:04: Q6HPRN, [place] 5) 5-325 mg 54 Starting Medi lizzy tablet 1 [facility] tablet 09/06/19 at 0904, Until Discontinu ed, Routine, Pain (scale 4-6) insulin 2019-0 Yes 40U 40 Units, Unive rs glargine 2-23 Subcutaneo ity o f (LANTUS 14:06: us, Q24H, [place] U-100) 00 First dose Medical injection on [facility] 40 Units 09/06/19 at 0815, Until Discontinu ed SERTraline 2019-0 Yes 50mg 50 mg, Unive rs (ZOLOFT) 2-23 Oral, QHS, ity o f tablet 50 03:00: First dose [place] mg 00 on [facility] 09/05/19 at [place] 2100, Until Discontinu ed, Routine docusate 2019-0 Yes 100mg 100 mg, Unive rs (COLACE) 2-23 Oral, BID, ity o f capsule 100 02:00: First dose [place] mg 00 on [facility] 09/05/19 at [place] 2000, Until Discontinu ed, Routine atorvastati 2019-0 Yes [id number] 80mg Take 1 Univers n 80 mg 2-23 tablet by ity of tablet 00:00: mouth at [place] 00 bedtime. [facility] atorvastati 2020-0 Yes [id number] 80mg Take 1 Univers n 80 mg 2-23 tablet by ity of tablet 00:00: mouth at [place] 00 bedtime. [facility] atorvastati 2020-0 Yes [id number] 80mg Take 1 Univers n 80 mg 2-23 tablet by ity of tablet 00:00: mouth at [place] 00 bedtime. [facility] atorvastati 2019-0 Yes [id number] 80mg Take 1 Univers n 80 mg 2-23 tablet by ity of tablet 00:00: mouth at [place] 00 bedtime. Medical Branch atorvastati 2020-0 Yes [id number] 80mg Take 1 Univers n 80 mg 2-23 tablet by ity of tablet 00:00: mouth at [place] [address] bedtime. Medical Branch atorvastati 2019-0 Yes [id number] 80mg Take 1 Univers n 80 mg 2-23 tablet by ity of tablet 00:00: mouth at [place] 00 bedtime. Medical Branch atorvastati 2020-0 Yes [id number] 80mg Take 1 Univers n 80 mg 2-23 tablet by ity of tablet 00:00: mouth at [place] 00 bedtime. Medical Branch atorvastati 2019-0 Yes [id number] 80mg Take 1 Univers n 80 mg 2-23 tablet by ity of tablet 00:00: mouth at [place] [address] bedtime. Medical Branch atorvastati 2019-0 Yes [id number] 80mg Take 1 Univers n 80 mg 2-23 tablet by ity of tablet 00:00: mouth at [place] [address] bedtime. Medical Branch atorvastati 2019-0 Yes [id number] 80mg Take 1 Univers n 80 mg 2-23 tablet by ity of tablet 00:00: mouth at [place] [address] bedtime. Medical Branch atorvastati 2019-0 Yes [id number] 80mg Take 1 Univers n 80 mg 2-23 tablet by ity of tablet 00:00: mouth at [place] [address] bedtime. Medical Branch atorvastati 2019-0 Yes [id number] 80mg Take 1 Univers n 80 mg 2-23 tablet by ity of tablet 00:00: mouth at [place] [address] bedtime. Medical Branch atorvastati 2020-0 Yes [id number] 80mg Take 1 Univers n 80 mg 2-23 tablet by ity of tablet 00:00: mouth at [place] [address] bedtime. Medical Branch atorvastati 2020-0 2020- No [id number] 80mg Take 1 Univers n 80 mg 2-23 04-06 tablet by ity of tablet 00:00: 00:00 mouth at [place] 00 :00 bedtime. Medical Branch atorvastati 2020-0 2020- No [id number] 80mg Take 1 Univers n 80 mg 2-23 04-06 tablet by ity of tablet 00:00: 00:00 mouth at [place] 00 :00 bedtime. Medical Branch Sliding 2020-0 Yes Subcutaneo Univ ers Scale 2-22 us, AC+HS, ity of Insulin - 17:30: First dose [place] Aspart [address] [facility] Medical (NOVOLOG) + 09/05/19 at [place] Fsbg 1130, Testing Until Discontinu ed, Routine ipratropium 2020-0 Yes 3mL 3 mL, Unive rs -albuterol 2- Inhalation ity of (DUONEB) 14:45: , Q6HPRN, [place] 0.5 mg-3 00 Starting Medical mg(2.5 mg [facility] base)/3 mL 09/05/19 at nebulizer 0845, solution 3 Until mL Discontinu ed, Routine, Wheezing, Shortness of Breath, Bronchospa sm ondansetron 2020-0 Yes 4mg 4 mg, Slow Univers (ZOFRAN 09-05 IV Push, ity of (PF)) 14:43: Q6HPRN, [place] injection 4 22 Starting Medi lizzy mg [facility] 09/05/19 at 0843, Until Discontinu ed, Routine, Nausea and Vomiting (N/V) KCL 20 2020-0 2020- No 20meq 20 mEq, Univer s mEq/15 mL 09-05- Oral, ity of solution 20 11:45: 11:29 ONCE, 1 [place] mEq 00 :00 dose, [facility] Medical 09/05/19 at Branch 0545, Routine [...] Fri Medi lizzy (4 %) 09/04/19 at [place] infusion 2 0730, g Routine KCL 2020-0 2020- No 40meq 40 mEq, Univers (KLOR-CON 09-04 Oral, ity of M20) tablet 12:30: 12:43 ONCE, 1 [place] 40 mEq 00 :00 dose, Fri Medical 09/04/19 at Branch 0630, Routine clopidogreL 2020-0 Yes 75mg 75 mg, Univ ers (PLAVIX) - Oral, ity of tablet 75 15:00: DAILY, [place] mg 00 First dose Medical on Sat Branch 09/03/19 at 0900, Until Discontinu ed, Routine
member service representative approving Restricted medication : RAFIA MORAN metoclopram 2019-0 2020- No 10mg 10 mg, Uni vers bj HCl 09-02 Slow IV ity of (REGLAN) 22:45: 14:43 Push, Q6H, [place] injection 00 :46 First dose Medi lizzy 10 mg on Sat Branch 09/02/19 at 1645, Until Discontinu ed, Routine diphenhydrA 2019-0 Yes 12.5mg 12.5 mg, Univers MINE 09-02 [...] at 0800, Until Discontinu ed, Routine magnesium 2020- No 1g 1 g, IV Univ ers sulfate in 09-02 Piggyback, it y of D5W 1 05:00: 05:16 ONCE, 1 [place] gram/100 mL 00 :00 dose, Sat Med ical RTU IV 09/01/19 at [place] Piggyback 1 2300, 100 g mL NORepinephr 2019- No .05ug/k 0.05-3 Univers ine 4 mg in 09-02 0222 g/min mcg/kg/min ity of D5W 250 mL [...] Branch infusion 2 1615, g Routine calcium 2019- 2020- No 1000mg 1,000 mg, Un michael chloride 09-01 Intravenou ity of 100 mg/mL 20:45: 19:53 s, ONCE, 1 [place] (10 %) 00 :00 dose, Tue Medical syringe 09/01/19 at Branch 1,000 mg 1445, Routine sodium 2019- 2020- No 1meq/kg 78.3 mEq Uni vers bicarbonate 09-01 (1 mEq/kg it y of 1 mEq/mL 20:45: 19:53 ?78.3 kg), [place] (8.4 %) 00 :00 Slow IV Medical injection Push, [place] 78.3 mEq ONCE, 1 dose, 09/01/19 at 1445, Routine albumin 2020-0 2020- No 12.5g 12.5 g, IV Un [...] 2020- No 300ug 300 mcg, Uni vers [employer] (5 09-01 Intravenou ity of mcg/mL NS) 20:30: 03:59 s, 60 mL, [place] 00 :16 CONTINUOUS Medical , Starting Branch Sat09/01/19 at 1430, Until Sat09/01/19 at 2159 propofol IV 2019-2019- No 5ug/kg/ 5-75 Un michael infusion 09-01 02-19 min mcg/kg/min ity of 20:13: 20:12 ?78.3 kg [place] 05 :05 (2.349-35. Medical 235 mL/hr, Branch [...] 00 First dose Medical on Sat Branch 09/01/19 at 1330, Until Discontinu ed, Routine [...] 4mg 4 mg, Slow Univers (ZOFRAN 2-18 02-22 IV Push, ity of (PF)) 19:19: 14:51 Q6HPRN, [place] injection 4 32 :48 Starting Medi lizzy mg [facility] Branch 09/01/19 at 1319, Until 09/05/19 at 0851, KATHY, Nausea and Vomiting (N/V) naloxone 2020-0 Yes .1mg 0.1 mg, Univer s (NARCAN) 2-18 Slow IV ity of injection 19:17: Push, [place] 0.1 mg 45 SEE-INSTRU Medical [facility], Branch Starting [facility] 09/01/19 at 1317, Until Discontinu ed, Routine furosemide 2020-0 Yes 20mg 20 mg, IV Un michael (LASIX) 2-18 Push, PRN, ity of injection 19:13: 2 doses, [place] 20 mg 07 Starting Medical [facility] Branch 09/01/19 at 1313, Until Discontinu ed, KATHY, Pressure Maintenanc e NaCl 0.9% 2020-0 Yes 250mL at 999 Unive rs (NS) bolus 2-18 mL/hr, 250 ity of infusion 19:13: mL, IV [place] 250 mL 07 Infusion, Medical PRN - SEE Branch INSTRUCTIO NS, 3 doses, Starting [facility] 09/01/19 at 1313, Until Discontinu ed, KATHY glucagon 2020-0 Yes 1mg 1 mg, Univers (GLUCAGEN 2-18 Intramuscu ity of DIAGNOSTIC 19:13: lar, PRN, [place] KIT) 06 Starting Medical injection 1 [facility] Branch mg 09/01/19 at 1313, Until Discontinu ed, KATHY, Blood Glucose < or = 70 mg/dL and patient is unable to swallow or has mental changes. dextrose 50 2020-0 Yes 25mL 25 mL, Univ ers % in water 2-18 Slow IV ity of (D50W) 19:13: Push, PRN, [place] injection 06 Starting Medica l 25 mL [facility] 09/01/19 at 1313, Until Discontinu ed, KATHY, Blood Glucose < or = 70 mg/dL and patient is unable to swallow or has mental status changes. dextrose 50 2020-0 2020- No .5{vial 25 mL (0.5 Univers % in water 09-01 } Vial), ity of (D50W) 19:13: 14:49 Slow IV [place] injection 06 :00 Push, PRN, Medi lizzy 25 mL Starting Branch [facility] 09/01/19 at 1313, Until 09/05/19 at 0849, KATHY, For Blood Glucose < 60, recheck blood glucose 30 minutes after bolus insulin 2019-0 2020- No 2U/h 2 Units/hr Uni vers regular 09-01 (2 mL/hr), ity o f human 19:13: 14:43 IV [place] (HUMULIN R) 06 :44 Infusion, [facility] 100 Units TITRATE, Branch in D5W 100 Starting mL infusion [facility] 09/01/19 at 1313, Until 09/05/19 at 0843 acetaminoph 2020-0 Yes 650mg 650 mg, Un michael en 09-01 Rectal, ity of (TYLENOL) 19:13: Q6HPRN, [place] suppository 05 Starting Medi lizzy 650 mg [facility] 09/01/19 at 1313, Until Discontinu ed, KATHY, Temp > 38.5 C gentamicin 2020-0 Yes PRN, Univers 40 mg/mL 80 09-01 Starting ity of mg, 14:28: e [place] vancomycin 00 09/01/19 at [facility] ica (VANCOCIN) 0828, Branch 1,000 mg in Intra-op NaCl 0.9% (NS) 1,000 mL OR irrigation heparin 2020-0 Yes PRN, Univers 1,000 09-01 Starting ity of unit/mL 14:27: e [place] 5,000 Units 00 09/01/19 at Nm dical in NaCl 08, Branch 0.9% (NS) Intra-op 500 mL OR irrigation papaverine 2020-0 Yes PRN, Univers 60 mg in 09-01 Starting ity of NaCl 0.9% 14:27: e [place] (NS) 60 mL 00 09/01/19 at [facility] ical OR 0827, Branch irrigation Intra-op heparin 2020-0 Yes PRN, Univers 1,000 - Starting ity of unit/mL 14:25: Tue [place] [...] chlorhexidi 2020-0 Yes Topical, Un michael ne -17 PRE-PROCED ity of (JARRED-HEX) 19:17: URE ONCE, [...] No 20mg 20 mg, Univ ers (LASIX) 08-28 Slow IV ity of injection 16:45: 21:51 Push, [place] 20 mg 00 :27 DAILY, Medical First dose Branch on Sat08/28/19 at 1045, Until Discontinu ed, Routine lisinopril 2020-0 2020- No 10mg 10 mg, [place] [facility] ers (PRINIVIL,Z 08-2719 Oral, ity of ESTRIL) 15:00: 13:18 DAILY, [place] tablet 10 00 :29 First dose Medi lizzy mg on [place] Branch 08/27/19 at 0900, Until Discontinu ed, Routine NaCl 0.9% 2020-0 2020- No IV Univers (NS) IV 08-2613 Infusion, ity of infusion 17:15: 17:14 at 75 [place] 00 :00 mL/hr, Medical CONTINUOUS Branch , Starting 08/26/19 at 1115, Until Francie 08/27/19 at 1114, Routine atorvastati 2020-0 Yes 80mg 80 mg, Univ ers n (LIPITOR) 2-12 Oral, QHS, it y of tablet 80 03:00: First dose [place] mg 00 on [facility] 08/25/19 at Branch 2100, Until Discontinu ed, Routine furosemide 2020-0 2020- No 40mg 40 mg, [place] [facility] ers (LASIX) 08-25 Oral, ity of tablet 40 23:00: 16:15 QAM+PM, [place] mg 00 :13 First dose Medical on [facility] 08/25/19 at 1700, Until Discontinu ed, Routine magnesium 2020-0 2020- No 296mL 296 mL, Uni vers citrate 08-25 Oral, ity of solution 23:00: 23:22 ONCE, 1 [place] 296 mL 00 :00 dose, [facility] 08/25/19 at Branch 1700, Routine D5W 0.45% 2019-0 2020- No 1000mL at 100 Uni vers NaCl 08-25 mL/hr, ity of (1/2NS) IV 19:00: 16:15 1,000 mL, [place] infusion 00 :13 IV Medical 1,000 mL Infusion, Branch CONTINUOUS , Starting [facility] 08/25/19 at 1300, Until Sat08/26/19 at 1015, Routine peg-electro 2020-0 2020- No 4000mL 4,000 mL, Univers lyte soln 08-24 Oral, ity of (GOLYTELY) 23:00: 04:06 ONCE, 1 You as 236-22.74-6 00 :00 dose, Mon Med ical .74 -5.86 08/24/19 at [facility] ch gram 1700, solution Routine 4,000 mL furosemide 2019-0 2020- No 20mg 20 mg, IV U nivers (LASIX) 08-2309 Push, ity of injection 17:00: 18:04 ONCE, 1 [place] 20 mg 00 :00 dose, [facility] 08/23/19 at Branch 1100, Routine metoprolol 2020-0 2020- No 50mg 50 mg, [place] [facility] ers tartrate 08-22- Oral, BID, ity of (LOPRESSOR) 02:00: 13:17 [...] 2000, Until Discontinu ed, Routine NaCl 0.9% 2019-2019- No 1000mL at 50 Univ ers (NS) IV 08-22 mL/hr, IV ity of infusion 01:30: 13:29 Infusion, You [place] 1,000 mL 00 :00 CONTINUOUS Medic al , Starting Branch 08/21/19 at 1930, Until 08/22/19 at 0729, Routine lidocaine 2019- 2020- No Infiltrati U nivers 1% (PF) 08-22 on, ity of (XYLOCAINE) 00:25: 00:25 TITRATE - [place] injection 30 :30 FOR Medical PROCEDURE Branch USE, 1 dose, Starting Sat08/21/19 at 1825, Until Sat08/21/19 at 1825, Routine lidocaine 2019- No Infiltrati U nivers 1% (PF) 08-22 on, ity of (XYLOCAINE) 00:11: 00:11 TITRATE - [place] injection 01 :01 FOR Medical PROCEDURE Branch USE, 1 dose, Starting Sat08/21/19 at 1811, Until Sat08/21/19 at 1811, Routine FENTanyl PF 2019- No Slow IV Un michael (SUBLIMAZE 08-22 Push, ity of (PF)) 00:08: 00:08 TITRATE - [place] injection 29 :29 FOR Medical PROCEDURE Branch USE, 1 dose, Starting Sat08/21/19 at 1808, Until Sat08/21/19 at 1808, Routine midazolam 2019- 2020- No IV Push, Uni vers (VERSED) 08-22 TITRATE - ity o f injection 00:08: 00:08 FOR [place] 23 :23 PROCEDURE Medical USE, 1 Branch dose, Starting Sat08/21/19 at 1808, Until Sat08/21/19 at 1808, Routine atorvastati 2019- No 40mg 40 mg, Uni vers n (LIPITOR) 08-21 Oral, QPM, i ty of tablet 40 23:00: 15:59 First dose [place] mg 00 :09 on Sat Medical 08/21/19 at Branch 1700, Until Discontinu ed, Routine pantoprazol 2020-0 Yes 40mg 40 mg, Univ ers e 2 Oral, ity of (PROTONIX) 15:00: DAILY, [place] [...] 08/21/19 at 0900, Until Discontinu ed, Routine
member service representative approving Restricted medication : RAFIA MORAN heparin 2020-0 2020- No 5000U 5,000 Univers (porcine) 08-21 Units, ity of injection 12:00: 19:23 Subcutaneo [place] 5,000 Units 00 :06 us, Q8H, Medi lizzy First dose Branch on Sat08/21/19 at 0600, Until Discontinu ed, Routine nicotine 2020-0 Yes 1{patch 1 Patch, Un michael (NICODERM) 2 } Topical, ity o f 21 mg/24 hr 04:15: Administer [place] patch 1 00 over 24 Medical Patch Hours, Branch Q24H, First dose on Sat08/20/19 at 2215, Until Discontinu ed, Routine Sliding 2020-0 2020- No Subcutaneo Uni vers Scale 08-21 02-22 us, Q4H, ity of Insulin - 03:15: 14:43 First dose [place] Aspart 00 :46 on Sat Medical (NOVOLOG) + 08/20/19 at [facility] Fsbg 2115, Testing Until Discontinu ed, Routine metoprolol 2020-0 2020- No 25mg 25 mg, Univ ers tartrate 08-21- Oral, Q6H, ity of (LOPRESSOR) 03:15: 15:29 First dose [place] tablet 25 00 :06 on [facility] Medical mg 08/20/19 at Branch 2115, Until Discontinu ed, Routine ALPRAZolam 2020-0 Yes .5mg 0.5 mg, Univ ers (XANAX) 08-21 Oral, ity of tablet 0.5 03:10: QHSPRN, [place] mg 34 Starting Medical [place] 08/20/19 Branch at 2110, Until Discontinu ed, Routine, anxiety nitroglycer 2019-0 Yes .4mg 0.4 mg, Uni vers in 08-21 Sublingual ity of (NITROSTAT) 03:06: , Q5MIN [place] sublingual 17 PRN, Medical tablet 0.4 Starting Branc h mg [place] 08/20/19 at 2106, Until Discontinu ed, Routine, Chest pain morpHINE 2019-0 Yes 2mg 2 mg, Slow Uni vers injection 2 08-21 IV Push, ity of mg 03:06: Q2HPRN, [place] 08 Starting Medical Francie 08/20/19 Branch at 210, Until Discontinu ed, Routine, Chest pain glucagon [...] No 4mg 4 mg, Slow Univers (ZOFRAN 08-21-07 IV Push, ity of (PF)) 01:20: 01:23 ONCE, 1 [place] injection 4 00 :00 dose, [place] Med ical mg 08/20/19 at Branch 1930, Routine ondansetron 2019- 2020- No 4mg 4 mg, Slow Univers (ZOFRAN 08-20 IV Push, ity of (PF)) 22:00: 19:29 Q6HPRN, [place] injection 4 19 :34 Starting Medi lizzy mg [facility] 08/20/19 [place] at 1600, Until Sat09/01/19 at 1329, Routine, Nausea and Vomiting (N/V) ALPRAZolam 2019- No .5mg 0.5 mg, Uni vers (XANAX) 08-20 Oral, ity of tablet 0.5 07:00: 06:45 ONCE, 1 [place] mg 00 :00 dose, [facility] 08/20/19 at Branch 0100, Routine atorvastati 2020- No 40mg 40 mg, Uni vers n (LIPITOR) 08-20 Oral, QHS, i ty of tablet 40 03:00: 03:12 First dose [place] mg 00 :55 on Sat [facility] 08/19/19 at Branch 2100, Until Discontinu ed, Routine KCL 2019-0 2020- No 40meq 40 mEq, Univers (KLOR-CON 08-20 Oral, BID, ity of M20) tablet 02:00: 15:08 First dose [place] 40 mEq 00 :22 on Sat [facility] 08/19/19 at Branch 2000, Until Discontinu ed, Routine KCL 2020-0 2020- No 40meq 40 mEq, Univers (KLOR-CON 08-19 Oral, ONCE ity of M20) tablet 15:30: 15:02 NOW, 1 [place] 40 mEq 00 :00 dose, [facility] 08/19/19 at Branch 0930, Routine clopidogreL 2019- 2020- No 75mg 75 mg, Uni vers (PLAVIX) 08-19 Oral, ity of tablet 75 15:00: 03:12 DAILY, [place] mg 00 :55 First dose Medical on Sat [place] 08/19/19 at 0900, Until Discontinu ed, Routine aspirin 2019-0 2020- No 81mg 81 mg, Univers chewable 08-19 Oral, ity of tablet 81 15:00: 03:12 DAILY, [place] mg 00 :55 First dose Medical on Sat [place] 08/19/19 at 0900, Until Discontinu ed, Routine enoxaparin 2020-0 2020- No 40mg 40 mg, [place] [facility] ers (LOVENOX) 08-19 Subcutaneo ity of injection 15:00: 04:24 us, DAILY, [place] 40 mg 00 :57 First dose Medical on Sat Branch 08/19/19 at 0900, Until Discontinu ed, Routine ipratropium 2020-0 2020- No 3mL 3 mL, [place] [facility] ers -albuterol 08-19 Inhalation it y of (DUONEB) 14:00: 14:43 , QID, [place] 0.5 mg-3 00 :46 First dose Medic al mg(2.5 mg on Sat Branch base)/3 mL 08/19/19 at nebulizer 0800, solution 3 Until mL Discontinu ed, Routine insulin 2020-0 Yes 12U 12 Units, [facility] rs regular -05 Subcutaneo ity of human 13:30: us, BIDAC, [place] (HUMULIN R) 00 First dose Me dical injection on Sat 12 Units 08/19/19 at 0730, Until Discontinu ed, Routine ipratropium 2019-0 2020- No 3mL 3 mL, [facility] ers -albuterol 08-19 Inhalation it y of (DUONEB) 10:30: 09:31 , ONCE, 1 You as 0.5 mg-3 00 :00 dose, [facility] Medica l mg(2.5 mg 08/19/19 at Bran h base)/3 mL 0430, nebulizer Routine solution 3 mL insulin 2019-0 2020- No 7U 7 Units, [facility] rs regular -11 13- Subcutaneo ity o f human 05:30: 05:28 us, ONCE, [place] (HUMULIN R) 00 :00 1 dose, Medic al injection 7 Sat08/18/19 Br anch Units at 2330, Routine furosemide 2019- 2020- No 40mg 40 mg, [facility] ers (LASIX) 08-19 Slow IV ity of injection 04:00: 15:29 Push, Q8H, [place] 40 mg 00 :06 First dose Medical on Sat Branch 08/18/19 at 2200, Until Discontinu ed, Routine spironolact 2019-0 2020- No 50mg 50 mg, Uni vers one 08-1907 Oral, BID, ity of (ALDACTONE) 04:00: 03:12 First dose [place] tablet 50 00 :55 on [facility] Medical mg 08/18/19 at Branch 2200, Until Discontinu ed, Routine Sliding 2019- No Subcutaneo Uni vers Scale 08-1907 us, AC+HS, ity of Insulin-Reg 03:00: 03:12 First dose [place] ular + Fsbg 00 :55 on e Medica l Testing 08/18/19 at Branch 2100, Until Discontinu ed, Routine insulin 2019- No 20U 20 Units, [facility] glargine 08-19 Subcutaneo ity of (LANTUS 02:00: 14:43 us, BID, [place] U-100) 00 :46 First dose Medical injection on [facility] Branch 20 Units 08/18/19 at 2000, Until Discontinu ed metoprolol 2019- No 50mg 50 mg, [facility] ers succinate 08-19 Oral, BID, ity of XL (TOPROL 02:00: 03:12 First dose [place] XL) tablet 00 :55 on [facility] Medical 50 mg 08/18/19 at Branch 2000, Until Discontinu ed nicotine 2019- No 1{patch 1 Patch, U nivers (NICODERM) 08-19 } Topical, ity of 21 mg/24 hr 00:45: 03:12 Administer [place] patch 1 00 :55 over 24 Medical Patch Hours, Branch Q24H, First dose on [facility] 08/18/19 at 1845, Until Discontinu ed, Routine furosemide 2019- No 40mg 40 mg, IV U nivers (LASIX) 08-18 0204 Push, ity of injection 23:30: 22:38 ONCE, 1 [place] 40 mg 00 :00 dose, [facility] Medical 08/18/19 at Branch 1730, KATHY acetaminoph Yes 650mg 650 mg, Un michael en 04 Oral, ity of (TYLENOL) 22:56: Q6HPRN, [place] tablet 650 29 Starting Medic al mg [facility] 08/18/19 Branch at 1656, Until Discontinu ed, Routine, Pain (scale 1-3) acetaminoph 2018-07 2020- No [id number] 1{tbl} Take 1 Univers en-codeine 0-09 02-04 tablet by ity of (TYLENOL-CO 00:00: 00:00 [place] DEINE #3) 00 :00 every 4 Medical 300-30 mg (four) Branch tablet hours as needed for Pain (scale 4-6) or Pain (scale 7-10). ferrous Yes [id number] 325mg Take 1 Un michael sulfate 8-31 tablet by ity of (FERROUSUL) 00:00: mouth 3 You as 325 mg (65 00 (three) Medica l mg iron) times Branch tablet daily with meals. ferrous Yes [id number] 325mg Take 1 Un michael sulfate 8-31 tablet by ity of (FERROUSUL) 00:00: mouth 3 You as 325 mg (65 00 (three) Medica l mg iron) times Branch tablet daily with meals. ferrous Yes [id number] 325mg Take 1 Un michael sulfate 8-31 tablet by ity of (FERROUSUL) 00:00: mouth 3 You as 325 mg (65 00 (three) Medica l mg iron) times Branch tablet daily with meals. ferrous Yes [id number] 325mg Take 1 Un michael sulfate 8-31 tablet by ity of (FERROUSUL) 00:00: mouth 3 You as 325 mg (65 00 (three) Medica l mg iron) times Branch tablet daily with meals. ferrous Yes [id number] 325mg Take 1 Un michael sulfate 8-31 tablet by ity of (FERROUSUL) 00:00: mouth 3 You as 325 mg (65 00 (three) Medica l mg iron) times Branch tablet daily with meals. ferrous Yes [id number] 325mg Take 1 Un michael sulfate 8-31 tablet by ity of (FERROUSUL) 00:00: mouth 3 You as 325 mg (65 00 (three) Medica l mg iron) times Branch tablet daily with meals. ferrous Yes [id number] 325mg Take 1 Un michael sulfate 8-31 tablet by ity of (FERROUSUL) 00:00: mouth 3 You as 325 mg (65 00 (three) Medica l mg iron) times Branch tablet daily with meals. ferrous Yes [id number] 325mg Take 1 Un michael sulfate 8-31 tablet by ity of (FERROUSUL) 00:00: mouth 3 You as 325 mg (65 00 (three) Medica l mg iron) times Branch tablet daily with meals. ferrous 2018-0 Yes [id number] 325mg Take 1 Un michael sulfate 8-31 tablet by ity of (FERROUSUL) 00:00: mouth 3 You as 325 mg (65 00 (three) Medica l mg iron) times Branch tablet daily with meals. ferrous 2018-0 Yes [id number] 325mg Take 1 Un michael sulfate 8-31 tablet by ity of (FERROUSUL) 00:00: mouth 3 You as 325 mg (65 00 (three) Medica l mg iron) times Branch tablet daily with meals. ferrous 2018-0 Yes [id number] 325mg Take 1 Un michael sulfate 8-31 tablet by ity of (FERROUSUL) 00:00: mouth 3 You as 325 mg (65 00 (three) Medica l mg iron) times Branch tablet daily with meals. ferrous 2017- 2020- No [id number] 325mg Take 1 U nivers sulfate 8-31 [...] of tablet 00:00: mouth [place] 00 daily. [facility] Branch aspirin 81 2018-0 Yes 81mg Take [...] minutes as needed for Chest pain. insulin 2017-0 Yes 12U inject 12 Unive rs regular 3-14 Units ity of human 00:00: under the [place] (HUMULIN R 00 skin 2 Medical U-100) [...] Units ity of human 00:00: under the [place] (HUMULIN R 00 skin 2 Medical U-100) [...] injection daily before breakfast and dinner. insulin Check Univers regular 09-23 Blood ity of human Soln 00:00: 00:00 [...] Immunizations Ordered Filled Immunization Date Status Comments [facility] e Immunization Name Name TDAP (ADACEL) 2019-09-18 Completed University of VACCINE 00:00:00 [place] [facility] TDAP (ADACEL) 2019-09-18 Completed University of VACCINE 00:00:00 [facility] Branch TDAP (ADACEL) 2019-09-18 Completed University of VACCINE 00:00:00 [facility] Branch TDAP (ADACEL) 2019-09-18 Completed University of VACCINE 00:00:00 [facility] Branch TDAP (ADACEL) 2019-09-18 Completed University of VACCINE 00:00:00 [facility] Branch TDAP (ADACEL) 2019-09-18 Completed University of VACCINE 00:00:00 [place] [facility] TDAP (ADACEL) 2019-09-18 Completed University of VACCINE 00:00:00 [facility] Branch TDAP (ADACEL) 2019-09-18 Completed University of VACCINE 00:00:00 [place] [facility] TDAP (ADACEL) 2019-09-18 Completed University of VACCINE 00:00:00 [place] [facility] TDAP (ADACEL) 2019-09-18 Completed University of VACCINE 00:00:00 [place] [facility] TDAP (ADACEL) 2019-09-18 Completed University of VACCINE 00:00:00 [place] [facility] TDAP (ADACEL) 2019-09-18 Completed University of VACCINE 00:00:00 [place] [facility] TDAP (ADACEL) 2019-09-18 Completed University of VACCINE 00:00:00 [facility] Branch TDAP (ADACEL) 2019-09-18 Completed University of VACCINE 00:00:00 [facility] Branch TDAP (ADACEL) 2019-09-18 Completed University of VACCINE 00:00:00 [place] [facility] TDAP (ADACEL) 2019-09-18 Completed University of VACCINE 00:00:00 [place] [facility] TDAP (ADACEL) 2019-09-18 Completed University of VACCINE 00:00:00 [place] [facility] TDAP (ADACEL) 2019-09-18 Completed University of VACCINE 00:00:00 [place] [facility] TDAP (ADACEL) 2019-09-18 Completed University of VACCINE 00:00:00 [place] [facility] TDAP (ADACEL) 2019-09-18 Completed University of VACCINE 00:00:00 [place] [facility] TDAP (ADACEL) 2019-09-18 Completed University of VACCINE 00:00:00 [place] [facility] TDAP (ADACEL) 2019-09-18 Completed University of VACCINE 00:00:00 [facility] Branch TDAP (ADACEL) 2019-09-18 Completed University of VACCINE 00:00:00 [facility] Branch TDAP (ADACEL) 2019-09-18 Completed University of VACCINE 00:00:00 [facility] Branch TDAP (ADACEL) 2019-09-18 Completed University of VACCINE 00:00:00 [facility] Branch TDAP (ADACEL) 2019-09-18 Completed University of VACCINE 00:00:00 [facility] Branch TDAP (ADACEL) 2019-09-18 Completed University of VACCINE 00:00:00 [place] [facility] TDAP (ADACEL) 2019-09-18 Completed University of VACCINE 00:00:00 [facility] Branch TDAP (ADACEL) 2019-09-18 Completed University of VACCINE 00:00:00 [facility] Branch TDAP (ADACEL) 2019-09-18 Completed University of VACCINE 00:00:00 [place] [facility] TDAP (ADACEL) 2019-09-18 Completed University of VACCINE 00:00:00 [place] [facility] TDAP (ADACEL) 2019-09-18 Completed University of VACCINE 00:00:00 [place] [facility] TDAP (ADACEL) 2019-09-18 Completed University of VACCINE 00:00:00 [place] [facility] TDAP (ADACEL) 2019-09-18 Completed University of VACCINE 00:00:00 [place] [facility] TDAP (ADACEL) 2019-09-18 Completed University [...] (ADACEL) 2019-09-18 Completed University of VACCINE 00:00:00 [place] [facility] TDAP (ADACEL) 2019-09-18 Completed University of VACCINE 00:00:00 [place] [facility] TDAP (ADACEL) 2019-09-18 Completed University of VACCINE 00:00:00 [facility] Branch TDAP (ADACEL) 2019-09-18 Completed University of VACCINE 00:00:00 [facility] Branch TDAP (ADACEL) 2019-09-18 Completed University of VACCINE 00:00:00 [place] [facility] TDAP (ADACEL) 2019-09-18 Completed University of VACCINE 00:00:00 [place] [facility] TDAP (ADACEL) 2019-09-18 Completed University of VACCINE 00:00:00 [place] [facility] TDAP (ADACEL) 2019-09-18 Completed University of VACCINE 00:00:00 [place] [facility] TDAP (ADACEL) 2019-09-18 Completed University of VACCINE 00:00:00 [place] [facility] TDAP (ADACEL) 2019-09-18 Completed University of VACCINE 00:00:00 [place] [facility] TDAP (ADACEL) 2019-09-18 Completed University of VACCINE 00:00:00 [place] [facility] TDAP (ADACEL) 2019-09-18 Completed University of VACCINE 00:00:00 [place] [facility] TDAP (ADACEL) 2019-09-18 Completed University of VACCINE 00:00:00 [place] [facility] TDAP (ADACEL) 2019-09-18 Completed University of VACCINE 00:00:00 [place] [facility] TDAP (ADACEL) 2019-09-18 Completed University of VACCINE 00:00:00 [place] [facility] TDAP (ADACEL) 2019-09-18 Completed University of VACCINE 00:00:00 [place] [facility] TDAP (ADACEL) 2019-09-18 Completed University of VACCINE 00:00:00 [facility] Branch Pneumococcal 2017-09-23 Completed University o f [...] Comments Source Systolic blood 2020-11-09 144 mm[Hg] [facility] pressure 13:12:00 [facility] Diastolic blood 2020-11-09 58 mm[Hg] University o f pressure 13:12:00 [facility] Heart rate 2020-11-09 61 /min [facility] 13:12:00 [facility] Respiratory rate 2020-11-09 18 /min University of 13:12: [place] [facility] Oxygen saturation 2020-11-09 100 /min University of in Arterial blood 13:12:00 [place] Medi lizzy by Pulse oximetry Branch Body temperature 2020-11-09 36.89 Bernadine University of 09:00:00 [place] [facility] Body height 2020-11-07 190.5 cm University of 19:10: [facility] Body weight 2020-11-07 72.576 kg University of 19:10: [facility] BMI 2020-11-07 20.00 kg/m2 University of 19:10: [facility] Branch Systolic blood 2020-05-03 157 mm[Hg] University of pressure 21:02:00 [facility] Branch Diastolic blood 2020-05-03 82 mm[Hg] University o f pressure 21:02:00 [facility] Branch Heart rate 2020-05-03 59 /min University of 21:02: [facility] Respiratory rate 2020-05-03 18 /min University of 21:02:00 [facility] Oxygen saturation 2020-05-03 100 /min University of in Arterial blood 21:02:00 [place] Medi lizzy by Pulse oximetry Branch Body temperature 2020-05-03 37 Bernadine University of 18:42:00 [place] [facility] Body height 2020-05-03 182.9 cm University of 18:42:00 [facility] Body weight 2020-05-03 72.576 kg University of 18:42:00 [facility] BMI 2020-05-03 21.70 kg/m2 University of 18:42:00 [facility] Systolic blood 2019-10-28 152 mm[Hg] University of pressure 12:52:00 [facility] Branch Diastolic blood 2019-10-28 77 mm[Hg] University o f pressure 12:52:00 [facility] Branch Heart rate 2019-10-28 69 /min University of 12:52:00 [facility] Branch Body temperature 2019-10-28 36.78 Bernadine University of 12:52:00 [facility] Branch Respiratory rate 2019-10-28 20 /min University of 12:52:00 [facility] Branch Oxygen saturation 2019-10-28 97 /min University of in Arterial blood 12:52:00 [place] Medi lizzy by Pulse oximetry Branch Body height 2019-10-27 182.9 cm University of 06:06:00 [facility] Branch Body weight 2019-10-27 74.98 kg University of 06:06:00 [facility] BMI 2019-10-27 22.42 kg/m2 University of 06:06:00 [facility] Systolic blood 2019-10-12 147 mm[Hg] University of pressure 18:07:00 [facility] Branch Diastolic blood 2019-10-12 73 mm[Hg] University o f pressure 18:07:00 [facility] Heart rate 2019-10-12 80 /min University of 18:07:00 [facility] Body temperature 2019-10-12 35.22 Bernadine University of 18:07:00 [facility] Respiratory rate 2019-10-12 16 /min University of 18:07:00 [facility] Body weight 2019-10-12 75.751 kg University of 18:07:00 [facility] BMI 2019-10-12 22.65 kg/m2 University of 18:07:00 [facility] Oxygen saturation 2019-10-12 98 /min University of in Arterial blood 18:07:00 [facility] by Pulse oximetry Branch Systolic blood 2019-10-01 136 mm[Hg] University of pressure 21:37:00 [facility] Diastolic blood 2019-10-01 59 mm[Hg] University o f pressure 21:37:00 [facility] Heart rate 2019-10-01 78 /min University of 21:37:00 [facility] Body temperature 2019-10-01 36.83 Bernadine University of 21:37:00 [facility] Respiratory rate 2019-10-01 18 /min University of 21:37:00 [facility] Oxygen saturation 2019-10-01 91 /min University of in Arterial blood 21:37:00 [facility] by Pulse oximetry Branch Body height 2019-09-30 182.9 cm University of 00:30:00 [facility] Body weight 2019-09-30 77.8 kg University of 00:30:00 [facility] BMI 2019-09-30 23.26 kg/m2 University of 00:30:00 [facility] Systolic blood 2019-09-28 142 mm[Hg] University of pressure 17:50:00 [place] [facility] Branch Diastolic blood 2019-09-28 68 mm[Hg] University o f pressure 17:50:00 [facility] Heart rate 2019-09-28 77 /min University of 17:50:00 [facility] Body temperature 2019-09-28 36.89 Bernadine University of 17:50:00 [facility] Respiratory rate 2019-09-28 16 /min University of 17:50:00 [facility] Body weight 2019-09-28 72.213 kg University of 17:50:00 [facility] BMI 2019-09-28 21.59 kg/m2 University of 17:50:00 [facility] Oxygen saturation 2019-09-28 99 /min University of in Arterial blood 17:50:00 [facility] by Pulse oximetry Branch Systolic blood 2019-09-21 132 mm[Hg] University of pressure 18:11:00 [facility] Diastolic blood 2019-09-21 70 mm[Hg] University o f pressure 18:11:00 [facility] Heart rate 2019-09-21 79 /min University of 18:11:00 [facility] Body temperature 2019-09-21 36.33 Bernadine University of 18:11:00 [facility] Respiratory rate 2019-09-21 16 /min University of 18:11:00 [facility] Body weight 2019-09-21 71.668 kg University of 18:11:00 [facility] BMI 2019-09-21 21.43 kg/m2 University of 18:11:00 [facility] Oxygen saturation 2019-09-21 97 /min University of in Arterial blood 18:11:00 [facility] by Pulse oximetry Branch Systolic blood 2019-09-19 162 mm[Hg] University of pressure 02:30:00 [facility] Diastolic blood 2019-09-19 76 mm[Hg] University o f pressure 02:30:00 [facility] Heart rate 2019-09-19 81 /min University of 02:30:00 [facility] Respiratory rate 2019-09-19 19 /min University of 02:30:00 [facility] Oxygen saturation 2019-09-19 96 /min University of in Arterial blood 02:30:00 [facility] by Pulse oximetry Branch Body temperature 2019-09-19 37.28 Bernadine University of 00:05:00 [facility] Body height 2019-09-19 182.9 cm University of 00:05:00 [facility] Body weight 2019-09-19 73.483 kg University of 00:05:00 [facility] BMI 2019-09-19 21.97 kg/m2 University of 00:05:00 [facility] Systolic blood 2019-09-15 128 mm[Hg] University of pressure 18:00:00 [facility] Diastolic blood 2019-09-15 66 mm[Hg] University o f pressure 18:00:00 [facility] Branch Heart rate 2019-09-15 77 /min University of 18:00:00 [place] [facility] Body temperature 2019-09-15 36.94 Bernadine University of 18:00:00 [place] [facility] Respiratory rate 2019-09-15 17 /min University of 18:00:00 [facility] Branch Oxygen saturation 2019-09-15 99 /min University of in Arterial blood 18:00:00 [place] Medi lizzy by Pulse oximetry Branch Body weight 2019-09-12 80 kg University of 15:21:00 [place] [facility] BMI 2019-09-12 23.92 kg/m2 University of 15:21:00 [facility] Branch Systolic blood 2019-09-07 135 mm[Hg] University of pressure 18:00:00 [facility] Branch Diastolic blood 2019-09-07 75 mm[Hg] University o f pressure 18:00:00 [place] [facility] Heart rate 2019-09-07 70 /min University of 18:00:00 [facility] Branch Respiratory rate 2019-09-07 23 /min University of 18:00:00 [facility] Branch Oxygen saturation 2019-09-07 95 /min University of in Arterial blood 18:00:00 [facility] lizzy by Pulse oximetry Branch Body temperature 2019-09-07 36.83 Bernadine University of 14:00:00 [facility] Branch Body height 2019-09-04 182.9 cm University of 06:00:00 [facility] Body weight 2019-09-04 73.2 kg University of 06:00:00 [facility] BMI 2019-09-04 21.89 kg/m2 University of 06:00:00 [facility] Branch Systolic blood 2020-11-09 144 mm[Hg] University of pressure 13:12:00 [place] [facility] Diastolic blood 2020-11-09 58 mm[Hg] University o f pressure 13:12:00 [facility] Heart rate 2020-11-09 61 /min University of 13:12:00 [facility] Respiratory rate 2020-11-09 18 /min University of 13:12:00 [facility] Branch Oxygen saturation 2020-11-09 100 /min University of in Arterial blood 13:12:00 [place] Medi lizzy by Pulse oximetry Branch Body temperature 2020-11-09 36.89 Bernadine University of 09:00:00 [facility] Branch Body height 2020-11-07 190.5 cm University of 19:10:00 [facility] Body weight 2020-11-07 72.576 kg University of 19:10:00 [facility] BMI 2020-11-07 20.00 kg/m2 University of 19:10:00 [facility] Heart rate 2020-11-06 69 /min University of 16:48:00 [facility] Respiratory rate 2020-11-06 18 /min [facility] 16:48:00 [facility] Oxygen saturation 2020-11-06 99 /min [facility] Arterial blood 16:48:00 [facility] by Pulse oximetry [place] Systolic blood 2020-11-06 122 mm[Hg] [place] of pressure 16:38:00 [facility] Diastolic blood 2020-11-06 57 mm[Hg] [place] o f pressure 16:38:00 [facility] Body temperature 2020-11-06 37.17 Bernadine [facility] 16:38:00 [facility] Body weight 2020-11-03 73 kg [facility] 01:00:00 [facility] BMI 2020-11-03 20.12 kg/m2 [place] of 01:00:00 [facility] Body height 2020-10-22 190.5 cm [facility] 16:30:00 [facility] Systolic blood 2019-09-29 155 mm[Hg] Location: [facility]; [facility] 16:23:00 Position: [place] Physician s Sitting Diastolic blood 2019-09-29 68 mm[Hg] Location: [facility]; [facility] pressure 16:23:00 Position: [place] Phys[facility] s Sitting Body height 2019-09-29 72 [in_us] [facility] 16:23:00 [place] [facility] s Weight 2019-09-29 163 [lb_av] [facility] 16:23:00 [place] [facility] s Body mass index 2019-09-29 22.11 kg/m2 [place] o f (BMI) [Ratio] 16:23:00 [place] [facility] ns Body temperature 2019-09-29 97.9 [degF] Method: Oral [facility] 16:23:00 [place] [facility] s Heart Rate 2019-09-29 75 /min [facility] 16:23:00 [place] [facility] s Procedures Procedure Date / Time Performing Source Performed Clinician DME/SUPPLY JUSTIFICATION 2020-12-16 Doctor Univers ity of 05:01:00 Unassigned, No [facility] Name Branch DNR 2020-11-16 Doctor University of 05:01:00 Unassigned, No [facility] POCT GLUCOSE (AUTOMATED) 2020-11-09 David Howell sity of 16:50:00 J [facility] POCT GLUCOSE (AUTOMATED) 2020-11-09 David Howell sity of 16:50:00 J [facility] CBC WITHOUT DIFF 2020-11-09 [facility] of 10:56:00 [facility] BASIC METABOLIC PANEL (NA, K, CL, 2020-11-09 [facility] of CO2, GLUCOSE, BUN, CREATININE, CA) 10:56:00 [facility] MAGNESIUM 2020-11-09 [facility] of 10:56:00 [facility] MAGNESIUM 2020-11-09 [facility] of 10:56:00 [facility] BASIC METABOLIC PANEL (NA, K, CL, 2020-11-09 [facility] of CO2, GLUCOSE, BUN, CREATININE, CA) 10:56:00 [facility] CBC WITHOUT DIFF 2020-11-09 [facility] of 10:56:00 [facility] POCT GLUCOSE (AUTOMATED) 2020-11-09 David Howell sity of 10:55:00 J [facility] POCT GLUCOSE (AUTOMATED) 2020-11-09 David Howell sity of 10:55:00 [facility] POCT GLUCOSE (AUTOMATED) 2020-11-09 David Howell sity of 05:23:00 J [facility] POCT GLUCOSE (AUTOMATED) 2020-11-09 David Howell sity of 05:23:00 J [facility] POCT GLUCOSE (AUTOMATED) 2020-11-08 David Howeller sity of 23:22:00 J [facility] POCT GLUCOSE (AUTOMATED) 2020-11-08 David Howell sity of 23:22:00 J [facility] POCT GLUCOSE (AUTOMATED) 2020-11-08 David Howell sity of 15:47:00 J [facility] POCT GLUCOSE (AUTOMATED) 2020-11-08 David Howell sity of 15:47:00 J [facility] POCT GLUCOSE (AUTOMATED) 2020-11-08 David Howell Univer sity of 11:15:00 J [facility] POCT GLUCOSE (AUTOMATED) 2020-11-08 David Howell sity of 11:15:00 J [facility] CBC WITH DIFF 2020-11-08 [facility] of 09:53:00 [facility] BASIC METABOLIC PANEL (NA, K, CL, 2020-11-08 [facility] of CO2, GLUCOSE, BUN, CREATININE, CA) 09:53:00 [facility] BASIC METABOLIC PANEL (NA, K, CL, 2020-11-08 [facility] of CO2, GLUCOSE, BUN, CREATININE, CA) 09:53:00 [facility] CBC WITH DIFF 2020-11-08 [facility] of 09:53:00 [facility] POCT GLUCOSE (AUTOMATED) 2020-11-08 David Howeller sity of 05:42:00 J [facility] POCT GLUCOSE (AUTOMATED) 2020-11-08 David Howell Univer sity of 05:42:00 J [facility] POCT GLUCOSE (AUTOMATED) 2020-11-07 David Howell sity of 22:01:00 J [facility] POCT GLUCOSE (AUTOMATED) 2020-11-07 David Howell Univer sity of 22:01:00 J [facility] POCT GLUCOSE (AUTOMATED) 2020-11-07 David Howell sity of 13:13:00 J [facility] POCT GLUCOSE (AUTOMATED) 2020-11-07 David Howell Univer sity of 13:13:00 J [facility] POCT GLUCOSE (AUTOMATED) 2020-11-07 David Howeller sity of 10:26:00 J [facility] POCT GLUCOSE (AUTOMATED) 2020-11-07 David Howell sity of 10:26:00 J [facility] CBC WITHOUT DIFF 2020-11-07 [facility] of 09:49:00 [facility] BASIC METABOLIC PANEL (NA, K, CL, 2020-11-07 [facility] of CO2, GLUCOSE, BUN, CREATININE, CA) 09:49:00 [facility] MAGNESIUM 2020-11-07 [facility] of 09:49:00 [facility] MAGNESIUM 2020-11-07 [facility] of 09:49:00 [facility] BASIC METABOLIC PANEL (NA, K, CL, 2020-11-07 [facility] of CO2, GLUCOSE, BUN, CREATININE, CA) 09:49:00 [facility] CBC WITHOUT DIFF 2020-11-07 [facility] of 09:49:00 [facility] POCT GLUCOSE (AUTOMATED) 2020-11-07 David Howell sity of 05:13:00 J [facility] POCT GLUCOSE (AUTOMATED) 2020-11-07 David Howell Univloi sity of 05:13:00 J [facility] POCT GLUCOSE (AUTOMATED) 2020-11-06 David Howeller sity of 22:48:00 J [facility] POCT GLUCOSE (AUTOMATED) 2020-11-06 David Howell Univloi sity of 22:48:00 J [facility] POCT GLUCOSE (AUTOMATED) 2020-11-06 David Howell Univer s[facility] of 16:49:00 J [facility] POCT GLUCOSE (AUTOMATED) 2020-11-06 David Howell sity of 16:49:00 J [facility] POCT GLUCOSE (AUTOMATED) 2020-11-06 David Howell sity of 11:11:00 J [facility] POCT GLUCOSE (AUTOMATED) 2020-11-06 David Howell sity of 11:11:00 [facility] CBC WITHOUT DIFF 2020-11-06 [facility] of 10:42:00 [facility] BASIC METABOLIC PANEL (NA, K, CL, 2020-11-06 [facility] of CO2, GLUCOSE, BUN, CREATININE, CA) 10:42:00 [facility] MAGNESIUM 2020-11-06 [facility] of 10:42:00 [facility] MAGNESIUM 2020-11-06 [facility] of 10:42:00 [facility] BASIC METABOLIC PANEL (NA, K, CL, 2020-11-06 Fab Larkin [place] of CO2, GLUCOSE, BUN, CREATININE, CA) 10:42:00 [facility] CBC WITHOUT DIFF 2020-11-06 Valentina Larkinenzo [place] of 10:42:00 [facility] POCT GLUCOSE (AUTOMATED) 2020-11-06 David Howell sity of 05:07:00 J [facility] POCT GLUCOSE (AUTOMATED) 2020-11-06 David Howell sity of 05:07:00 J [facility] POCT GLUCOSE (AUTOMATED) 2020-11-05 David Howell sity of 18:40:00 J [facility] POCT GLUCOSE (AUTOMATED) 2020-11-05 David Howell sity of 18:40:00 J [facility] URINE CULTURE 2020-11-05 Trae [facility] of 14:56:00 [facility]URE 2020[facility]11-05 [facility] of 14:56:00 [facility] BLOOD CULTURE SCREEN 2020-11-05 [facility] of 14:54:00 [facility] BLOOD CULTURE SCREEN 2020-11-05 [employer] [facility] of 14:54:00 [facility] BLOOD CULTURE SCREEN 2020-11-05 [facility] of 14:44:00 [facility] BLOOD CULTURE SCREEN 2020-11-05 [facility] of 14:44:00 [facility] XR CHEST 1 VW 2020-11-05 [facility] of 12:03:32 [facility] XR CHEST 1 VW 2020-11-05 [facility] of 12:03:32 [facility] POCT GLUCOSE (AUTOMATED) 2020-11-05 David Howell sity of 11:13:00 J [facility] POCT GLUCOSE (AUTOMATED) 2020-11-05 David Howell sity of 11:13:00 J [facility] CBC WITHOUT DIFF 2020-11-05 Trae Thomas [place] of 09:31:00 [facility] BASIC METABOLIC PANEL (NA, K, CL, 2020-11-05 Trae Fab [facility] of CO2, GLUCOSE, BUN, CREATININE, CA) 09:31:00 [facility] MAGNESIUM 2020-11-05 [facility] of 09:31:00 [facility] MAGNESIUM 2020-11-05 [facility] of 09:31:00 [facility] BASIC METABOLIC PANEL (NA, K, CL, 2020-11-05 [facility] of CO2, GLUCOSE, BUN, CREATININE, CA) 09:31:00 [facility] CBC WITHOUT DIFF 2020-11-05 [facility] of 09:31:00 [facility] POCT GLUCOSE (AUTOMATED) 2020-11-05 David Howell Univloi [facility]ity of 04:54:00 J [facility] POCT GLUCOSE (AUTOMATED) 2020-11-05 David Howell Univer sity of 04:54:00 J [facility] POCT GLUCOSE (AUTOMATED) 2020-11-04 David Howell sity of 22:58:00 J [facility] POCT GLUCOSE (AUTOMATED) 2020-11-04 David Howell sity of 22:58:00 J [facility] XR KUB 2020-11-04 [facility] of 21:35:45 [facility] XR KUB 2020-11-04 [facility] of 21:35:45 [facility] POCT GLUCOSE (AUTOMATED) 2020-11-04 David Howeller sity of 16:51:00 J [facility] POCT GLUCOSE (AUTOMATED) 2020-11-04 David Howell sity of 16:51:00 J [facility] PROTHROMBIN TIME / INR 2020-11-04 [facility] of 15:55:00 [facility] PROTHROMBIN TIME / INR 2020-11-04 [facility] of 15:55:00 [facility] POCT GLUCOSE (AUTOMATED) 2020-11-04 David Howell sity of 15:21:00 J [facility] POCT GLUCOSE (AUTOMATED) 2020-11-04 David Howell sity of 15:21:00 J [facility] CBC WITHOUT DIFF 2020-11-04 [facility] of 10:04:00 [facility] BASIC METABOLIC PANEL (NA, K, CL, 2020-11-04 [facility] of CO2, GLUCOSE, BUN, CREATININE, CA) 10:04:00 [facility] MAGNESIUM 2020-11-04 [employer] [facility] of 10:04:00 [facility] MAGNESIUM 2020-11-04 [employer] [facility] of 10:04:00 [facility] BASIC METABOLIC PANEL (NA, K, CL, 2020-11-04 [facility] of CO2, GLUCOSE, BUN, CREATININE, CA) 10:04:00 [facility] CBC WITHOUT DIFF 2020-11-04 [employer] [facility] of 10:04:00 [facility] POCT GLUCOSE (AUTOMATED) 2020-11-03 Antonio Villa [facility] of 16:54:00 [facility] POCT GLUCOSE (AUTOMATED) 2020-11-03 Antonio Villa [facility] of 16:54:00 [facility] BASIC METABOLIC PANEL (NA, K, CL, 2020-11-03 Ele Cao of CO2, GLUCOSE, BUN, CREATININE, CA) 12:53:00 [facility] MAGNESIUM 2020-11-03 lEe Cao [place] of 12:53:00 [facility] MAGNESIUM 2020-11-03 Ele Cao [place] of 12:53:00 [facility] BASIC METABOLIC PANEL (NA, K, CL, 2020-11-03 Ele Cao of CO2, GLUCOSE, BUN, CREATININE, CA) 12:53:00 [facility] POCT GLUCOSE (AUTOMATED) 2020-11-03 Antonio Villa [facility] of 12:47:00 [facility] POCT GLUCOSE (AUTOMATED) 2020-11-03 Antonio Villa [facility] of 12:47:00 [facility] THYROID PEROXIDASE (TPO) AB 2020-11-03 Ele Cao Uni versity of 10:10:00 [facility] CBC WITH DIFF 2020-11-03 Ele Cao [place] of 10:10:00 [facility] CBC WITH DIFF 2020-11-03 Ele aCo [place] of 10:10:00 [facility] THYROID PEROXIDASE (TPO) AB 2020-11-03 Ele Cao Uni versity of 10:10:00 [facility] POCT GLUCOSE (AUTOMATED) 2020-11-03 Antonio Villa [facility] of 10:09:00 [facility] POCT GLUCOSE (AUTOMATED) 2020-11-03 Antonio Villa [facility] of 10:09:00 [facility] POCT GLUCOSE (AUTOMATED) 2020-11-03 Antonio Villa [facility] of 04:38:00 [facility] POCT GLUCOSE (AUTOMATED) 2020-11-03 Antonio Villa [facility] of 04:38:00 [facility] BASIC METABOLIC PANEL (NA, K, CL, 2020-11-03 Kiley [facility] of CO2, GLUCOSE, BUN, CREATININE, CA) 02:22:00 [facility] MAGNESIUM 2020-11-03 Kiley [facility] of 02:22:00 [facility] MAGNESIUM 2020-11-03 Kiley [facility] of 02:22:00 [facility] BASIC METABOLIC PANEL (NA, K, CL, 2020-11-03 Kiley [facility] of CO2, GLUCOSE, BUN, CREATININE, CA) 02:22:00 [facility] XR KUB 2020-11-02 Kiley [facility] of 22:56:53 [facility] XR KUB 2020-11-02 Kiley [facility] of 22:56:53 [facility] VITAMIN B6, PLASMA 2020-11-02 [facility] of 22:49:00 [facility] VITAMIN B6, PLASMA 2020-11-02 [facility] of 22:49:00 [facility] POCT GLUCOSE (AUTOMATED) 2020-11-02 Antonio Villa [facility] of 22:20:00 [facility] POCT GLUCOSE (AUTOMATED) 2020-11-02 Antonio Villa [facility] of 22:20:00 [facility] MENINGITIS/ENCEPHALITIS PANEL BY 2020-11-02 Ele Cao [place] of PCR 20:45:00 [facility] CSF/OUTBOARD MOTOR MECHANIC SHUNT CULTURE 2020-11-02 Ele Cao [place] of 20:45:00 [facility] BODY FLUID MANUAL DIFF 2020-11-02 [facility] 20:45:00 [facility] CEREBROSPINAL FLUID GLUCOSE 2020-11-02 Ele Cao [facility] ersity of 20:45:00 [facility] CEREBROSPINAL FLUID PROTEIN 2020-11-02 Kiley [facility] ersity of 20:45:00 [facility] CSF CULTURE 2020-11-02 Kiley [facility] of 20:45:00 [facility] CEREBROSPINAL FLUID PROTEIN 2020-11-02 Kiley [facility] ersity of 20:45:00 [facility] CEREBROSPINAL FLUID GLUCOSE 2020-11-02 Kiley [facility] ersity of 20:45:00 [facility] BODY FLUID DIRECT COUNT 2020-11-02 Kiley [facility] ty of 20:45:00 [facility] CSF/OUTBOARD MOTOR MECHANIC SHUNT CULTURE 2020-11-02 Kiley [facility] of 20:45:00 [facility] CSF CULTURE 2020-11-02 Kiley [facility] of 20:45:00 [facility] MENINGITIS/ENCEPHALITIS PANEL BY 2020-11-02 Kiley [facility] of PCR 20:45:00 [facility] BASIC METABOLIC PANEL (NA, K, CL, 2020-11-02 [facility] CO2, GLUCOSE, BUN, CREATININE, CA) 17:39:00 [facility] MAGNESIUM 2020-11-02 Kiley [facility] of 17:39:00 [facility] MAGNESIUM 2020-11-02 Kiley [facility] of 17:39:00 [facility] BASIC METABOLIC PANEL (NA, K, CL, 2020-11-02 Ele Cao [place] of CO2, GLUCOSE, BUN, CREATININE, CA) 17:39:00 [facility] POCT GLUCOSE (AUTOMATED) 2020-11-02 Antonio Villa [facility] of 16:28:00 [facility] POCT GLUCOSE (AUTOMATED) 2020-11-02 Antonio Villa P Univers ity of 16:28:00 [facility] POCT GLUCOSE (AUTOMATED) 2020-11-02 Antonio Villa P Univers ity of 12:37:00 [facility] POCT GLUCOSE (AUTOMATED) 2020-11-02 Antonio Villa [facility] of 12:37:00 [facility] CBC WITH DIFF 2020-11-02 Ele Cao [place] of 09:56:00 [facility] BASIC METABOLIC PANEL (NA, K, CL, 2020-11-02 Eel Cao [place] of CO2, GLUCOSE, BUN, CREATININE, CA) 09:56:00 [facility] VITAMIN B1 (THIAMINE), WHOLE BLOOD 2020-11-02 [facility] of 09:56:00 [facility] MAGNESIUM 2020-11-02 [facility] 09:56:00 [facility] MAGNESIUM 2020-11-02 [facility] of 09:56:00 [facility] BASIC METABOLIC PANEL (NA, K, CL, 2020[facility] CO2, GLUCOSE, BUN, CREATININE, CA) 09:56:00 [facility] CBC WITH DIFF 2020-11-02 [facility] of 09:56:00 [facility] VITAMIN B1 (THIAMINE), WHOLE BLOOD 2020-11-02 [facility] of 09:56:00 [facility] POCT GLUCOSE (AUTOMATED) 2020-11-02 Antonio Villa P Univers ity of 03:57:00 [facility] POCT GLUCOSE (AUTOMATED) 2020-11-02 Antonio Villa P [facility] ity of 03:57:00 [facility] POCT GLUCOSE (AUTOMATED) 2020-11-02 Antonio Villa [facility] of 00:42:00 [facility] POCT GLUCOSE (AUTOMATED) 2020-11-02 Antonio Villa P Univers ity of 00:42:00 [facility] ELECTROENCEPHALOGRAM 2020-11-02 [facility] of 00:00:00 [facility] ELECTROENCEPHALOGRAM 2020-11-02 [facility] of 00:00:00 [facility] POCT GLUCOSE (AUTOMATED) 2020-11-01 Antonio Villa P Univers ity of 21:46:00 [facility] POCT GLUCOSE (AUTOMATED) 2020-11-01 Antonio Villa P [facility] ity of 21:46:00 [facility] POCT GLUCOSE (AUTOMATED) 2020-11-01 Antonio Villa P [facility] ity of 20:44:00 [facility] POCT GLUCOSE (AUTOMATED) 2020-11-01 Antonio Villa [facility] of 20:44:00 [facility] POCT GLUCOSE (AUTOMATED) 2020-11-01 Antonio Villa [facility] of 17:03:00 [facility] POCT GLUCOSE (AUTOMATED) 2020-11-01 Antonio Villa [facility] of 17:03:00 [facility] BASIC METABOLIC PANEL (NA, K, CL, 2020-11-01 Ele Cao [place] of CO2, GLUCOSE, BUN, CREATININE, CA) 17:01:00 [facility] PROCALCITONIN 2020-11-01 Ele Cao [place] of 17:01:00 [facility] THYROID STIMULATING HORMONE 2020-11-01 [facility] of 17:01:00 [facility] FOLATE 2020-11-01 [facility] of 17:01:00 [facility] VITAMIN B12, LEVEL 2020-11-01 [facility] of 17:01:00 [facility] VITAMIN B12, LEVEL 2020-11-01 [facility] of 17:01:00 [facility] FOLATE 2020-11-01 [facility] of 17:01:00 [facility] THYROID STIMULATING HORMONE 2020-11-01 [facility] ersity of 17:01:00 [facility] BASIC METABOLIC PANEL (NA, K, CL, 2020-11-01 Kiley [facility] of CO2, GLUCOSE, BUN, CREATININE, CA) 17:01:00 [facility] PROCALCITONIN 2020-11-01 Ele Cao [place] of 17:01:00 [facility] POCT GLUCOSE (AUTOMATED) 2020-11-01 Antonio Villa [facility] of 12:51:00 [facility] POCT GLUCOSE (AUTOMATED) 2020-11-01 Antonio Villa [facility] of 12:51:00 [facility] CBC WITH DIFF 2020-11-01 Kiley [facility] of 10:21:00 [facility] BASIC METABOLIC PANEL (NA, K, CL, 2020-11-01 Kiley Ele [place] of CO2, GLUCOSE, BUN, CREATININE, CA) 10:21:00 [facility] POCT GLUCOSE (AUTOMATED) 2020-11-01 Antonio Villa [facility] of 10:21:00 [facility] BASIC METABOLIC PANEL (NA, K, CL, 2020-11-01 Kiley [facility] of CO2, GLUCOSE, BUN, CREATININE, CA) 10:21:00 [facility] CBC WITH DIFF 2020-11-01 [facility] of 10:21:00 [facility] POCT GLUCOSE (AUTOMATED) 2020-11-01 Antonio Villa [facility] of 10:21:00 [facility] POCT GLUCOSE (AUTOMATED) 2020-11-01 Antonio Villa [facility] of 08:03:00 [facility] POCT GLUCOSE (AUTOMATED) 2020-11-01 Antonio Villa P [facility] ity of 08:03:00 [facility] BASIC METABOLIC PANEL (NA, K, CL, 2020-11-01 [facility] of CO2, GLUCOSE, BUN, CREATININE, CA) 05:06:00 [facility] POCT GLUCOSE (AUTOMATED) 2020-11-01 Antonio Villa P [facility] ity of 05:06:00 [facility] BASIC METABOLIC PANEL (NA, K, CL, 2020-11-01 [facility] of CO2, GLUCOSE, BUN, CREATININE, CA) 05:06:00 [facility] POCT GLUCOSE (AUTOMATED) 2020-11-01 Antonio Villa [facility] of 05:06:00 [facility] POCT GLUCOSE (AUTOMATED) 2020-11-01 Antonio [facility] of 02:17:00 [facility] POCT GLUCOSE (AUTOMATED) 2020-11-01 Antonio [facility] of 02:17:00 [facility] MR STROKE BRAIN WO CONTRAST 2020-11-01 [facility] ersity of 01:18:51 [facility] MR STROKE BRAIN WO CONTRAST 2020-11-01 [facility] ersity of 01:18:51 [facility] POCT GLUCOSE (AUTOMATED) 2020-10-31 Antonio Villa [facility] of 23:26:00 [facility] POCT GLUCOSE (AUTOMATED) 2020-10-31 Antonio Villa P [facility] ity of 23:26:00 [facility] POCT GLUCOSE (AUTOMATED) 2020-10-31 Antonio Villa [facility] of 16:40:00 [facility] POCT GLUCOSE (AUTOMATED) 2020-10-31 Antonio Villa [facility] of 16:40:00 [facility] POCT GLUCOSE (AUTOMATED) 2020-10-31 Antonio [facility] of 12:41:00 [facility] POCT GLUCOSE (AUTOMATED) 2020-10-31 Antonio Villa [facility] of 12:41:00 [facility] CBC WITHOUT DIFF 2020-10-31 [facility] of 11:13:00 [facility] CBC WITHOUT DIFF 2020-10-31 [facility] of 11:13:00 [facility] PREPARE PACKED RBC 2020-10-31 [facility] of 06:44:13 [facility] PREPARE PACKED RBC 2020-10-31 [facility] of 06:44:13 [facility] HB ABO GROUPING 2020-10-31 [facility] of 05:48:00 [facility] HB ABO GROUPING 2020-10-31 [facility] of 05:48:00 [facility] POCT GLUCOSE (AUTOMATED) 2020-10-31 Antonio [facility] of 05:16:00 [facility] POCT GLUCOSE (AUTOMATED) 2020-10-31 Antonio [facility] of 05:16:00 [facility] BASIC METABOLIC PANEL (NA, K, CL, 2020-10-31 Ele Cao [place] of CO2, GLUCOSE, BUN, CREATININE, CA) 04:05:00 [facility] CBC WITH DIFF 2020-10-31 Ele Cao [place] of 04:05:00 [facility] ACTIVATED PARTIAL THRMPLAS CARL[place] 2020-10-31 [facility] 04:05:00 [facility] MAGNESIUM 2020-10-31 [facility], [facility] of 04:05:00 [facility] MAGNESIUM 2020-10-31 [facility] of 04:05:00 [facility] BASIC METABOLIC PANEL (NA, K, CL, 2020-10-31 Ele Cao [place] of CO2, GLUCOSE, BUN, CREATININE, CA) 04:05:00 [facility] CBC WITH DIFF 2020-10-31 Kiley Ele [place] of 04:05:00 [facility] ACTIVATED PARTIAL THRMPLAS [place] 2020-10-31 [facility] of 04:05:00 [facility] HB ECG ROUTINE & RHYTHM STRIP 2020-10-31 [place] [facility] of 03:58:40 [facility] HB ECG ROUTINE & RHYTHM STRIP 2020-10-31 [place] [facility] of 03:58:40 [facility] POCT GLUCOSE (AUTOMATED) 2020-10-31 [facility] of 01:27:00 [facility] POCT GLUCOSE (AUTOMATED) 2020-10-31 Antonio Villa [facility] of 01:27:00 [facility] XR CHEST 1 VW 2020-10-31 [facility] of 01:06:00 [facility] XR CHEST 1 VW 2020-10-31 [facility] of 01:06:00 [facility] POCT GLUCOSE (AUTOMATED) 2020-10-30 Antonio [facility] of 22:08:00 [facility] POCT GLUCOSE (AUTOMATED) 2020-10-30 [facility] of 22:08:00 [facility] POCT GLUCOSE (AUTOMATED) 2020-10-30 [facility] of 19:43:00 [facility] POCT GLUCOSE (AUTOMATED) 2020-10-30 [facility] of 19:43:00 [facility] ACTIVATED PARTIAL THRMPLAS [place] 2020-10-30 [facility] of 17:13:00 [facility] ACTIVATED PARTIAL THRMPLAS CARL[place] 2020-10-30 Bowen Russo [facility] of 17:13:00 [facility] POCT GLUCOSE (AUTOMATED) 2020-10-30 Antonio Villa [facility] of 17:05:00 [facility] POCT GLUCOSE (AUTOMATED) 2020-10-30 Antonio Villa [facility] of 17:05:00 [facility] CBC WITHOUT DIFF 2020-10-30 [facility] of 13:57:00 [facility] BASIC METABOLIC PANEL (NA, K, CL, 2020-10-30 Ele Cao [place] of CO2, GLUCOSE, BUN, CREATININE, CA) 13:57:00 [facility] MAGNESIUM 2020-10-30 Ele Cao of 13:57:00 [facility] MAGNESIUM 2020-10-30 Ele Cao [place] of 13:57:00 [facility] BASIC METABOLIC PANEL (NA, K, CL, 2020-10-30 Ele Cao of CO2, GLUCOSE, BUN, CREATININE, CA) 13:57:00 [facility] CBC WITHOUT DIFF 2020-10-30 Dianne Kiser [place] of 13:57:00 [facility] POCT GLUCOSE (AUTOMATED) 2020-10-30 Antonio Villa P [facility] ity of 12:40:00 [facility] POCT GLUCOSE (AUTOMATED) 2020-10-30 Antonio Villa P [facility] it[facility] of 12:40:00 [facility] POCT GLUCOSE (AUTOMATED) 2020-10-30 Antonio Villa P [facility] it[facility] of 09:33:00 [facility] POCT GLUCOSE (AUTOMATED) 2020-10-30 Antonio Villa P [facility] it[facility] of 09:33:00 [facility] POCT GLUCOSE (AUTOMATED) 2020-10-30 Antonio Villa P [facility] it[facility] of 06:23:00 [facility] POCT GLUCOSE (AUTOMATED) 2020-10-30 Antonio Villa P [facility] it[facility] of 06:23:00 [facility] BASIC METABOLIC PANEL (NA, K, CL, 2020-10-30 Ele Cao of CO2, GLUCOSE, BUN, CREATININE, CA) 05:24:00 [facility] ACTIVATED PARTIAL THRMPLAS CARL[place] 2020-10-30 Bowen Russo [facility] of 05:24:00 [facility] CBC WITH DIFF 2020-10-30 Ele Cao of 05:24:00 [facility] MAGNESIUM 2020-10-30 Dianne Kiser [place] of 05:24:00 [facility] MAGNESIUM 2020-10-30 Margi Dianne [place] of 05:24:00 [facility] BASIC METABOLIC PANEL (NA, K, CL, 2020-10-30 Ele Cao of CO2, GLUCOSE, BUN, CREATININE, CA) 05:24:00 [facility] CBC WITH DIFF 2020-10-30 Ele Cao [place] of 05:24:00 [facility] ACTIVATED PARTIAL THRMPLAS [place] 2020-10-30 Bowen Russo [facility] of 05:24:00 [facility] POCT GLUCOSE (AUTOMATED) 2020-10-30 Antonio Villa [facility] of 03:24:00 [facility] POCT GLUCOSE (AUTOMATED) 2020-10-30 Antonio Villa [facility] of 03:24:00 [facility] POCT GLUCOSE (AUTOMATED) 2020-10-30 Antonio Villa [facility] of 00:45:00 [facility] POCT GLUCOSE (AUTOMATED) 2020-10-30 Antonio Villa [facility] of 00:45:00 [facility] POCT GLUCOSE (AUTOMATED) 2020-10-29 Antonio Villa [facility] of 22:25:00 [facility] POCT GLUCOSE (AUTOMATED) 2020-10-29 Antonio Villa [facility] of 22:25:00 [facility] ACTIVATED PARTIAL THRMPLAS [place] 2020-10-29 Bowen Russo [facility] of 20:52:00 [facility] ACTIVATED PARTIAL THRMPLAS [place] 2020-10-29 Bowen Russo U n[facility] of 20:52:00 [facility] BASIC METABOLIC PANEL (NA, K, CL, 2020-10-29 Kiley [facility] of CO2, GLUCOSE, BUN, CREATININE, CA) 20:08:00 [facility] MAGNESIUM 2020-10-29 Kiley [facility] of 20:08:00 [facility] MAGNESIUM 2020-10-29 Kiley [facility] of 20:08:00 [facility] BASIC METABOLIC PANEL (NA, K, CL, 2020-10-29 Kiley [facility] of CO2, GLUCOSE, BUN, CREATININE, CA) 20:08:00 [facility] POCT GLUCOSE (AUTOMATED) 2020-10-29 Espinosa, Univers ity of 19:12:00 Prabhjot Melara [facility] POCT GLUCOSE (AUTOMATED) 2020-10-29 Espinosa, [facility] ity of 19:12:00 Prabhjot Melara [facility] POCT GLUCOSE (AUTOMATED) 2020-10-29 Espinosa, [facility] ity of 16:27:00 Prabhjot Melara [facility] POCT GLUCOSE (AUTOMATED) 2020-10-29 Espinosa, Univers ity of 16:27:00 [facility] TROPONIN I 2020-10-29 [facility] of 15:15:00 [facility] BASIC METABOLIC PANEL (NA, K, CL, 2020-10-29 Kiley [facility] of CO2, GLUCOSE, BUN, CREATININE, CA) 15:15:00 [facility] ACTIVATED PARTIAL THRMPLAS [place] 2020-10-29 Bowen Russo n[facility] of 15:15:00 [facility] TROPONIN I 2020-10-29 [facility] of 15:15:00 [facility] BASIC METABOLIC PANEL (NA, K, CL, 2020-10-29 Kiley, [facility] of CO2, GLUCOSE, BUN, CREATININE, CA) 15:15:00 [facility] ACTIVATED PARTIAL THRMPLAS [place] 2020-10-29 Bowen Russo [facility] of 15:15:00 [facility] POCT GLUCOSE (AUTOMATED) 2020-10-29 [facility] ity of 12:54:00 [facility] POCT GLUCOSE (AUTOMATED) 2020-10-29 [facility] ity of 12:54:00 [facility] XR BONE SURVEY 2020-10-29 [facility] of 09:39:57 [facility] XR BONE SURVEY 2020-10-29 [facility] of 09:39:57 [facility] MRSA / MSSA SCREEN BY PCRBRITNEY 2020-10-29 [facility] 08:01:00 [facility] MRSA / MSSA SCREEN BY PCRBRITNEY 2020-10-29 Rafaela [facility] of 08:01:00 [facility] TROPONIN I 2020-10-29 [facility] 08[facility]00 [facility] CBC WITH DIFF 2020-10-29 Kiley [facility] of 08:00:00 [facility] BASIC METABOLIC PANEL (NA, K, CL, 2020-10-29 Kiley [facility] of CO2, GLUCOSE, BUN, CREATININE, CA) 08:00:00 [facility] TROPONIN I 2020-10-29 [facility] 08:00:00 [facility] BASIC METABOLIC PANEL (NA, K, CL, 2020-10-29 Kiley, [facility] of CO2, GLUCOSE, BUN, CREATININE, CA) 08:00:00 [facility] CBC WITH DIFF 2020-10-29 Ele Cao [place] of 08:00:00 [facility] POCT GLUCOSE (AUTOMATED) 2020-10-29 [facility] ity of 07:09:00 [facility] POCT GLUCOSE (AUTOMATED) 2020-10-29 [facility] ity of 07:09:00 [facility] POCT GLUCOSE (AUTOMATED) 2020-10-29 [facility] ity of 03:58:00 [facility] POCT GLUCOSE (AUTOMATED) 2020-10-29 [facility] ity of 03:58:00 [facility] TROPONIN I 2020-10-29 [facility] 03:18:00 [facility] CBC WITH DIFF 2020-10-29 [facility], [facility] of 03:18:00 [facility] BASIC METABOLIC PANEL (NA, K, CL, 2020-10-29 [facility], [facility] of CO2, GLUCOSE, BUN, CREATININE, CA) 03:18:00 [facility] MAGNESIUM 2020-10-29 [facility], [facility] of 03:18:00 [facility] MAGNESIUM 2020-10-29 [facility], [facility] of 03:18:00 [facility] TROPONIN I 2020-10-[address] [facility] [address] 03:18:00 [facility] BASIC METABOLIC PANEL (NA, K, CL, 2020-10-29 [facility], [facility] of CO2, GLUCOSE, BUN, CREATININE, CA) 03:18:00 [facility] CBC WITH DIFF 2020-10-29 [facility], [facility] of 03:18:00 [facility] PROTHROMBIN TIME / INR 2020-10-29 [facility], [facility] y of 03:17:00 [facility] FIBRINOGEN 2020-10-29 Faruqi, [facility] of 03:17:00 [facility] PROTHROMBIN TIME / INR 2020-10-29 Faru, [facility] y of 03:17:00 [facility]IBRINOGEN 2020-10-29 [facility] of 03:17:00 [facility] AC PANEL 20 + LACTIC ACID 2020-10-29 [facility], [facility] sity of 03:09:00 [facility] AC PANEL 20 + LACTIC ACID 2020-10-29 [facility], [facility] sity of 03:09:00 [facility] CT HEAD WO CONTRAST 2020-10-29 [facility], [facility] o f 02:45:23 [facility] CT HEAD WO CONTRAST 2020-10-29 [facility], [facility] o f 02:45:23 [facility] POCT GLUCOSE (AUTOMATED) 2020-10-29 [facility] ity of 01:09:00 [facility] POCT GLUCOSE (AUTOMATED) 2020-10-29 [facility], Univers ity of 01:09:00 [facility] POCT GLUCOSE (AUTOMATED) 2020-10-28 [facility], Univers ity of 21:42:00 [facility] POCT GLUCOSE (AUTOMATED) 2020-10-28 [facility], Univers ity of 21:42:00 [facility] TRANSTHORACIC ECHO (TTE) COMPLETE 2020-10-28 [facility] W/ CONTRAST 20:20:00 [facility] TRANSTHORACIC ECHO (TTE) COMPLETE 2020-10-28 [facility] W/ CONTRAST 20:20:00 [facility] POCT GLUCOSE (AUTOMATED) 2020-10-28 [facility] ity of 16:35:00 [facility] POCT GLUCOSE (AUTOMATED) 2020-10-28 [facility] ity of 16:35:00 [facility] XR CHEST 1 VW 2020-10-28 [facility] 15:19:34 [facility] XR CHEST 1 VW 2020-10-28 [facility] 15:19:34 [facility] HB ECG ROUTINE & RHYTHM STRIP 2020-10-28 Leonel, Un iversity of 14:00:32 [facility] HB ECG ROUTINE & RHYTHM STRIP 2020-10-28 Leonel, Un iversity of 14:00:32 [facility] AC PANEL 20 + LACTIC ACID 2020-10-28 Leonel, Univer sity of 13:52:00 [facility] AC PANEL 20 + LACTIC ACID 2020-10-28 Leonel, Univer sity of 13:52:00 [facility] POCT GLUCOSE (AUTOMATED) 2020-10-28 Antonio Villa [facility] it[facility] of 13:44:00 [facility] POCT GLUCOSE (AUTOMATED) 2020-10-28 Antonio Villa [facility] of 13:44:00 [facility] POCT GLUCOSE (AUTOMATED) 2020-10-28 Antonio Villa [facility] of 13:15:00 [facility] POCT GLUCOSE (AUTOMATED) 2020-10-28 Antonio Villa [facility] of 13:15:00 [facility] POCT GLUCOSE (AUTOMATED) 2020-10-28 Antonio Villa [facility] of 10:41:00 [facility] POCT GLUCOSE (AUTOMATED) 2020-10-28 Antonio Villa [facility] of 10:41:00 [facility] URINE CULTURE 2020-10-28 [facility] of 07:48:00 [facility] URINE CULTURE 2020-10-28 [facility] of 07:48:00 [facility] TROPONIN I 2020-10-28 [facility] of 07:45:00 [facility] CBC WITHOUT DIFF 2020-10-28 [facility] of 07:45:00 [facility] BASIC METABOLIC PANEL (NA, K, CL, 2020-10-28 [facility] of CO2, GLUCOSE, BUN, CREATININE, CA) 07:45:00 [facility] TROPONIN I 2020-10-28 [facility] of 07:45:00 [facility] BASIC METABOLIC PANEL (NA, K, CL, 2020-10-28 [facility] of CO2, GLUCOSE, BUN, CREATININE, CA) 07:45:00 [facility] CBC WITHOUT DIFF 2020-10-28 [facility] of 07:45:00 [facility] POCT GLUCOSE (AUTOMATED) 2020-10-28 Antonio Villa [facility] of 07:37:00 [facility] POCT GLUCOSE (AUTOMATED) 2020-10-28 Antonio Villa [facility] of 07:37:00 [facility] POCT GLUCOSE (AUTOMATED) 2020-10-28 Antonio Villa [facility] of 04:15:00 [facility] POCT GLUCOSE (AUTOMATED) 2020-10-28 Antonio Villa [facility] of 04:15:00 [facility] POCT GLUCOSE (AUTOMATED) 2020-10-28 Antonio Villa [facility] of 01:28:00 [facility] POCT GLUCOSE (AUTOMATED) 2020-10-28 Antonio Villa [facility] of 01:28:00 [facility] BLOOD CULTURE SCREEN 2020-10-27 [facility] of 23:28:00 [facility] BLOOD CULTURE SCREEN 2020-10-27 [facility] of 23:28:00 [facility] BASIC METABOLIC PANEL (NA, K, CL, 2020-10-27 [facility] of CO2, GLUCOSE, BUN, CREATININE, CA) 21:40:00 [facility] TROPONIN I 2020-10-27 [facility] of 21:40:00 [facility] EXTRA TUBE LAV 2020-10-27 [facility] 21:40:00 [facility] TROPONIN I 2020-10-27 [facility] of 21:40:00 [facility] BASIC METABOLIC PANEL (NA, K, CL, 2020-10-27 [facility] of CO2, GLUCOSE, BUN, CREATININE, CA) 21:40:00 [facility] EXTRA TUBE LAV 2020-10-27 [facility] of 21:40:00 [facility] POCT GLUCOSE (AUTOMATED) 2020-10-27 Vonda Starks [facility] ity of 21:28:00 [facility] POCT GLUCOSE (AUTOMATED) 2020-10-27 Vonda Starks [facility] ity of 21:28:00 [facility] POCT GLUCOSE (AUTOMATED) 2020-10-27 Vonda Starks [facility] ity of 19:12:00 [facility] POCT GLUCOSE (AUTOMATED) 2020-10-27 Vonda Starks [facility] it[facility] of 19:12:00 [facility] POCT GLUCOSE (AUTOMATED) 2020-10-27 Vonda Starks [facility] ity of 16:09:00 [facility] POCT GLUCOSE (AUTOMATED) 2020-10-27 Vonda Starks [facility] ity of 16:09:00 [facility] CBC WITH DIFF 2020-10-27 Jax [place] of 13:09:00 [facility] CBC WITH DIFF 2020-10-27 [place]ax [place] of 13:09:00 [facility] POCT GLUCOSE (AUTOMATED) 2020-10-27 Vonda Starks [facility] ity of 12:57:00 [facility] POCT GLUCOSE (AUTOMATED) 2020-10-27 Vonda Starks [facility] ity of 12:57:00 [facility] BASIC METABOLIC PANEL (NA, K, CL, 2020-10-27 Jax [place] of CO2, GLUCOSE, BUN, CREATININE, CA) 10:57:00 [facility] TROPONIN I 2020-10-27 [facility] of 10:57:00 [facility] TROPONIN I 2020-10-27 [facility] of 10:57:00 [facility] BASIC METABOLIC PANEL (NA, K, CL, 2020-10-27 Jax [place] of CO2, GLUCOSE, BUN, CREATININE, CA) 10:57:00 [facility] BASIC METABOLIC PANEL (NA, K, CL, 2020-10-27 Jax [place] of CO2, GLUCOSE, BUN, CREATININE, CA) 05:09:00 [facility] TROPONIN I 2020-10-27 Norman Jax [place] of 05:09:00 [facility] TROPONIN I 2020-10-27 Norman Jax [place] of 05:09:00 [facility] BASIC METABOLIC PANEL (NA, K, CL, 2020-10-27 Jax [place] of CO2, GLUCOSE, BUN, CREATININE, CA) 05:09:00 [facility] POCT GLUCOSE (AUTOMATED) 2020-10-27 Vonda Starks [facility] ity of 02:53:00 [facility] POCT GLUCOSE (AUTOMATED) 2020-10-27 Vonda Starks Univers ity of 02:53:00 [facility] BASIC METABOLIC PANEL (NA, K, CL, 2020-10-26 Norman [facility] of CO2, GLUCOSE, BUN, CREATININE, CA) 22:44:00 [facility] BASIC METABOLIC PANEL (NA, K, CL, 2020-10-26 [facility] of CO2, GLUCOSE, BUN, CREATININE, CA) 22:44:00 [facility] POCT GLUCOSE (AUTOMATED) 2020-10-26 Vonda Starks [facility] it[facility] of 21:39:00 [facility] POCT GLUCOSE (AUTOMATED) 2020-10-26 Vonda Starks Univers ity of 21:39:00 [facility] XR ABDOMEN 1 VW 2020-10-26 Norman [facility] of 20:25:00 [facility] XR ABDOMEN 1 VW 2020-10-26 [facility] of 20:25:00 [facility] POCT GLUCOSE (AUTOMATED) 2020-10-26 Vonda Starks [facility] ity of 16:55:00 [facility] POCT GLUCOSE (AUTOMATED) 2020-10-26 Jairo Starksd Univers ity of 16:55:00 [facility] POCT GLUCOSE (AUTOMATED) 2020-10-26 Jairo Starksd Univers ity of 12:57:00 [facility] POCT GLUCOSE (AUTOMATED) 2020-10-26 Jairo Starksd Univers ity of 12:57:00 [facility] BASIC METABOLIC PANEL (NA, K, CL, 2020-10-26 [facility] of [facility], GLUCOSE, BUN, CREATININE, CA) 08:46:00 [facility] CBC WITH DIFF 2020-10-26 [facility] of 08:46:00 [facility] MAGNESIUM 2020-10-26 [facility] of 08:46:00 [facility] TROPONIN I 2020-10-26 [facility] of 08:46:00 [facility] MAGNESIUM 2020-10-26 [facility] of 08:46:00 [facility] TROPONIN I 2020-10-26 [facility] of 08:46:00 [facility] BASIC METABOLIC PANEL (NA, K, CL, 2020-10-26 [facility] CO2, GLUCOSE, BUN, CREATININE, CA) 08:46:00 [facility] CBC WITH DIFF 2020-10-26 Margi [facility] of 08:46:00 [facility] TROPONIN I 2020-10-26 Katina [facility] of 02:23:00 [facility] TROPONIN I 2020-10-26 Katina [facility] of 02:23:00 [facility] POCT GLUCOSE (AUTOMATED) 2020-10-26 Vonda Starks [facility] it[facility] of 02:22:00 [facility] POCT GLUCOSE (AUTOMATED) 2020-10-26 Vonda Starks [facility] ity of 02:22:00 [facility] POCT GLUCOSE (AUTOMATED) 2020-10-25 Vonda Starks [facility] ity of 23:35:00 [facility] POCT GLUCOSE (AUTOMATED) 2020-10-25 Vonda Starks [facility] ity of 23:35:00 [facility] BASIC METABOLIC PANEL (NA, K, CL, 2020-10-25 [facility] of CO2, GLUCOSE, BUN, CREATININE, CA) 19:50:00 [facility] MAGNESIUM 2020-10-25 [facility] of 19:50:00 [facility] TROPONIN I 2020-10-25 [facility] of 19:50:00 [facility] MAGNESIUM 2020-10-25 [facility] of 19:50:00 [facility] TROPONIN I 2020-10-25 [facility] of 19:50:00 [facility] BASIC METABOLIC PANEL (NA, K, CL, 2020-10-25 [facility] of CO2, GLUCOSE, BUN, CREATININE, CA) 19:50:00 [facility] AC PANEL 20 + LACTIC ACID 2020-10-25 Margi [facility] sity of 19:49:00 [facility] AC PANEL 20 + LACTIC ACID 2020-10-25 Marig [facility] sity of 19:49:00 [facility] HB ECG ROUTINE & RHYTHM STRIP 2020-10-25 Dianne Kiser Un iversity of 19:35:45 [facility] HB ECG ROUTINE & RHYTHM STRIP 2020-10-25 Margi Dianne Un iversity of 19:35:45 [facility] AC PANEL 20 + LACTIC ACID 2020-10-25 Rafaela, Bowen Univer sity of 18:22:00 [facility] AC PANEL 20 + LACTIC ACID 2020-10-25 Maycoor, Bowen Univer sity of 18:22:00 [facility] POCT GLUCOSE (AUTOMATED) 2020-10-25 Vonda Starks [facility] ity of 17:15:00 [facility] POCT GLUCOSE (AUTOMATED) 2020-10-25 Vonda Starks [facility] ity of 17:15:00 [facility] AC PANEL 20 + LACTIC ACID 2020-10-25 Sydor, Bowen Univer sity of 15:21:00 [facility] AC PANEL 20 + LACTIC ACID 2020-10-25 Maycoor, Bowen Univer sity of 15:21:00 [facility] POCT GLUCOSE (AUTOMATED) 2020-10-25 Vonda Starks [facility] it[facility] of 12:42:00 [facility] POCT GLUCOSE (AUTOMATED) 2020-10-25 Vonda Starks [facility] ity of 12:42:00 [facility] CBC WITH DIFF 2020-10-25 Norman [facility] of 08:27:00 [facility] BASIC METABOLIC PANEL (NA, K, CL, 2020-10-25 Norman Jax [place] of CO2, GLUCOSE, BUN, CREATININE, CA) 08:27:00 [facility] MAGNESIUM 2020-10-25 Norman Jax [place] of 08:27:00 [facility] MAGNESIUM 2020-10-25 Norman Jax [place] of 08:27:00 [facility] BASIC METABOLIC PANEL (NA, K, CL, 2020-10-25 Norman [facility] of CO2, GLUCOSE, BUN, CREATININE, CA) 08:27:00 [facility] CBC WITH DIFF 2020-10-25 Norman Jax [place] of 08:27:00 [facility] POCT GLUCOSE (AUTOMATED) 2020-10-25 Vonda Starks [facility] it[facility] of 01:28:00 [facility] POCT GLUCOSE (AUTOMATED) 2020-10-25 Vonda Starks [facility] ity of 01:28:00 [facility] POCT GLUCOSE (AUTOMATED) 2020-10-24 Jokhio, Vonda Univers ity of 21:35:00 [facility] POCT GLUCOSE (AUTOMATED) 2020-10-24 Vonda Starks [facility] ity of 21:35:00 [facility] CT HEAD WO CONTRAST 2020-10-24 Jax [place] o f 19:12:43 [facility] CT HEAD WO CONTRAST 2020-10-24 Jax [place] o f 19:12:43 [facility] POCT GLUCOSE (AUTOMATED) 2020-10-24 Vonda Starks [facility] ity of 16:51:00 [facility] POCT GLUCOSE (AUTOMATED) 2020-10-24 Vonda Starks [facility] ity of 16:51:00 [facility] CT THORAX W CONTRAST 2020-10-24 Jax [place] of 14:08:31 [facility] CT THORAX W CONTRAST 2020-10-24 Jax [place] of 14:08:31 [facility] CT ABDOMEN PELVIS W CONTRAST 2020-10-24 Jax [place] Uni versity of 14:06:06 [facility] CT ABDOMEN PELVIS W CONTRAST 2020-10-24 Jax [place] Uni versity of 14:06:06 [facility] POCT GLUCOSE (AUTOMATED) 2020-10-24 Vonda Starks [facility] of 12:42:00 [facility] POCT GLUCOSE (AUTOMATED) 2020-10-24 Vonda Starks [facility] of 12:42:00 [facility] MAGNESIUM 2020-10-24 kelechi [facility] of 09:41:00 [facility] BASIC METABOLIC PANEL (NA, K, CL, 2020-10-24 kelechi [facility] of CO2, GLUCOSE, BUN, CREATININE, CA) 09:41:00 [facility] CBC WITH DIFF 2020-10-24 [facility] of 09:41:00 [facility] MAGNESIUM 2020-10-24 kelechi [facility] of 09:41:00 [facility] BASIC METABOLIC PANEL (NA, K, CL, 2020-10-24 [facility] of CO2, GLUCOSE, BUN, CREATININE, CA) 09:41:00 [facility] CBC WITH DIFF 2020-10-24 kelechi [facility] of 09:41:00 [facility] AUTHORIZATION FOR RELEASE OF PHI 2020-10-24 [facility] of 05:01:00 Unassigned, No [facility] AUTHORIZATION FOR RELEASE OF PHI 2020-10-24 [facility] of 05:01:00 Unassigned, No [facility] POCT GLUCOSE (AUTOMATED) 2020-10-24 Vonda Starks [facility] of 01:01:00 [facility] POCT GLUCOSE (AUTOMATED) 2020-10-24 Vonda Starks [facility] of 01:01:00 [facility] POCT GLUCOSE (AUTOMATED) 2020-10-23 Vonda Starks [facility] of 23:29:00 [facility] POCT GLUCOSE (AUTOMATED) 2020-10-23 Vonda Starks [facility] of 23:29:00 [facility] POCT GLUCOSE (AUTOMATED) 2020-10-23 Vonda Starks [facility] of 18:06:00 [facility] POCT GLUCOSE (AUTOMATED) 2020-10-23 Vonda Starks [facility] of 18:06:00 [facility] CBC WITH DIFF 2020-10-23 [facility] 13:08:00 [facility] CBC WITH DIFF 2020-10-23 [facility] 13:08:00 [facility] POCT GLUCOSE (AUTOMATED) 2020-10-23 Vonda Starks [facility] of 13:06:00 [facility] POCT GLUCOSE (AUTOMATED) 2020-10-23 Vonda Starks ity of 13:06:00 [facility] PREPARE PACKED RBC 2020-10-23 Ele Cao [place] of 10:02:05 [facility] PREPARE PACKED RBC 2020-10-23 Ele Cao [place] of 10:02:05 [facility] CBC WITH DIFF 2020-10-23 Jax [place] of 08:46:00 [facility] BASIC METABOLIC PANEL (NA, K, CL, 2020-10-23 Norman Jax [place] of CO2, GLUCOSE, BUN, CREATININE, CA) 08:46:00 [facility] MAGNESIUM 2020-10-23 Ele Cao [place] of 08:46:00 [facility] MAGNESIUM 2020-10-23 Ele Cao [place] of 08:46:00 [facility] BASIC METABOLIC PANEL (NA, K, CL, 2020-10-23 aJx [place] of CO2, GLUCOSE, BUN, CREATININE, CA) 08:46:00 [facility] CBC WITH DIFF 2020-10-23 Jax [place] of 08:46:00 [facility] TROPONIN I 2020-10-22 Jax [place] of 22:48:00 [facility] CBC WITH DIFF 2020-10-22 Jax [place] of 22:48:00 [facility] TROPONIN I 2020-10-22 Jax [place] of 22:48:00 [facility] CBC WITH DIFF 2020-10-22 Jax [place] of 22:48:00 [facility] XR ABDOMEN 1 VW 2020-10-22 Jax [place] of 22:32:58 [facility] XR ABDOMEN 1 VW 2020-10-22 Jax [place] of 22:32:58 [facility] GLYCOSYLATED HEMOGLOBIN (A1C) 2020-10-22 Jax [place] Un iversity of 18:10:00 [facility] IRON PANEL 2020-10-22 Jax [place] of 18:10:00 [facility] IRON PANEL 2020-10-22 aJx [place] of 18:10:00 [facility] GLYCOSYLATED HEMOGLOBIN (A1C) 2020-10-22 Jax [place] Un iversity of 18:10:00 [facility] XR CHEST 1 VW 2020-10-22 Jax [place] of 17:58:02 [facility] XR CHEST 1 VW 2020-10-22 Jax [place] of 17:58:02 [facility] AC PANEL 20 + LACTIC ACID 2020-10-22 Jax [place] [facility] sity of 17:30:00 [facility] AC PANEL 20 + LACTIC ACID 2020-10-22 [facility]ax [place] [facility] sity of 17:30:00 [facility] BLOOD CULTURE SCREEN 2020-10-22 Jax [place] of 17:17:00 [facility] BLOOD CULTURE SCREEN 2020-10-22 Jax [place] of 17:17:00 [facility] URINALYSIS 2020-10-22 Jax [place] of 16:59:00 [facility] URINE CULTURE 2020-10-22 Jax [place] of 16:59:00 [facility] BASIC METABOLIC PANEL (NA, K, CL, 2020-10-22 Jax [place] of CO2, GLUCOSE, BUN, CREATININE, CA) 16:59:00 [facility] CBC WITH DIFF 2020-10-22 Jax [place] of 16:59:00 [facility] FIBRINOGEN 2020-10-22 Jax [place] of 16:59:00 [facility] PROTHROMBIN TIME / INR 2020-10-22 Jax [place] [facility] y of 16:59:00 [facility] HEPATIC FUNCTION PANEL ([id number]) 2020-10-22 Jax [place] niversity of (ALB,T.PRO,BILI 16:59:00 [facility],BU/BC,ALT,AST,ALK PHOS) [place] FERRITIN SERUM 2020-10-22 Jax [place] of 16:59:00 [facility] TROPONIN I 2020-10-22 Jax [place] of 16:59:00 [facility] FERRITIN SERUM 2020-10-22 Jax [place] of 16:59:00 [facility] TROPONIN I 2020-10-22 Jax [place] of 16:59:00 [facility] HEPATIC FUNCTION PANEL ([id number]) 2020-10-22 Jax [place] niversity of (ALB,T.PRO,BILI 16:59:00 [facility] T,BU/BC,ALT,AST,ALK PHOS) [place] BASIC METABOLIC PANEL (NA, K, CL, 2020-10-22 Jax [place] of CO2, GLUCOSE, BUN, CREATININE, CA) 16:59:00 [facility] CBC WITH DIFF 2020-10-22 Jax [place] of 16:59:00 [facility] PROTHROMBIN TIME / INR 2020-10-22 Jax [place] [facility] y of 16:59:00 [facility] FIBRINOGEN 2020-10-22 Jax [place] of 16:59:00 [facility] URINALYSIS 2020-10-22 Jax [place] of 16:59:00 [facility] URINE CULTURE 2020-10-22 Jax [place] of 16:59:00 [facility] MRSA / MSSA SCREEN BY PCR, BRITNEY 2020-10-22 Jax [place] of 16:45:00 [facility] MRSA / MSSA SCREEN BY PCR, BRITNEY 2020-10-22 Jax [place] of 16:45:00 [facility] HB ECG ROUTINE & RHYTHM STRIP 2020-10-22 Jax [place] Un iversity of 16:40:04 [facility] HB ECG ROUTINE & RHYTHM STRIP 2020-10-22 Jax [place] iversity of 16:40:04 [facility] HB ABO GROUPING 2020-10-22 Jax [place] of 16:30:00 [facility] HB ABO GROUPING 2020-10-22 Jax [place] of 16:30:00 [facility] HOSPITAL ADMISSION 2020-10-22 [facility] of 05:01:00 Unassigned, No [facility] HOSPITAL ADMISSION 2020-10-22 [facility] of 05:01:00 Unassigned, No [facility] REFERRAL- REQUEST/RESPONSE 2020-07-04 [facility] rsity of 06:01:00 Unassigned, No [facility] TROPONIN I 2020-05-03 [facility] of 19:53:00 [facility] HEPATIC FUNCTION PANEL ([id number]) 2020-05-03 [facility] of (ALB,T.PRO,BILI 19:53:00 [facility],BU/BC,ALT,AST,ALK PHOS) [place] BASIC METABOLIC PANEL (NA, K, CL, 2020-05-03 [facility] of CO2, GLUCOSE, BUN, CREATININE, CA) 19:53:00 [facility] CBC WITH DIFF 2020-05-03 [facility] of 19:53:00 [facility] N-TERMINAL PRO-BNP 2020-05-03 [facility] o f 19:53:00 [facility] HB ABO GROUPING 2020-05-03 [facility] of 19:52:00 [facility] EKG-12 LEAD 2020-05-03 [facility] of 19:00:54 [facility] CONSENT/REFUSAL FOR DIAGNOSIS AND 2020-05-03 [facility] of TREATMENT 18:25:10 Unassigned, No [facility] MEDICAL RELEASE/CLEARANCE FORMS 2019-11-16 [facility] 05:01:00 Unassigned, No [facility] POCT GLUCOSE (AUTOMATED) 2019-10-28 Faustino Mason ity of 12:52:00 [facility] URIC ACID 2019-10-28 Faustino Mason [place] of 09:13:00 [facility] COMP. METABOLIC PANEL ([id number]) 2019-10-28 Faustino Mason iversity of 09:13:00 [facility] CBC WITH DIFFERENTIAL 2019-10-28 Faustino Mason [place] of 09:13:00 [facility] N-TERMINAL PRO-BNP 2019-10-28 Marlon, Faustino [place] of 09:13:00 [facility] POCT GLUCOSE (AUTOMATED) 2019-10-28 Marlon, Faustino [facility] it[facility] of 01:54:00 [facility] POCT GLUCOSE (AUTOMATED) 2019-10-27 [facility] 21:06:00 [facility] POCT GLUCOSE (AUTOMATED) 2019-10-27 Marlon, Faustino [facility] ity of 16:18:00 [facility] TROPONIN I 2019-10-27 Marlon, Faustino [place] of 15:00:00 [facility] PROFILE / HEMOGRAM 2019-10-27 Faustino Mason [place] of 15:00:00 [facility] POCT GLUCOSE (AUTOMATED) 2019-10-27 Marlon, Faustino [facility] ity of 14:34:00 [facility] POCT GLUCOSE (AUTOMATED) 2019-10-27 [facility] of 12:39:00 [facility] URINALYSIS 2019-10-27 Marlon, [facility] of 10:46:00 [facility] POCT GLUCOSE (AUTOMATED) 2019-10-27 Marlon, Faustino [facility] ity of 10:46:00 [facility] UREA NITROGEN, URINE RANDOM 2019-10-27 Marlon, Faustino [facility] ersity of 10:46:00 [facility] SODIUM, URINE RANDOM 2019-10-27 Marlon [facility] of 10:46:00 [facility] PROTEIN CREAT RATIO URINE RANDOM 2019-10-27 [facility] 10:46[facility]00 [facility] URIC ACID 2019-10-27 [facility] 09:10:00 [facility] MAGNESIUM 2019-10-27 [facility] 09:10:00 [facility] TROPONIN I 2019-10-27 Marlon, [facility] of 09:10:00 [facility] COMP. METABOLIC PANEL ([id number]) 2019-10-27 Faustino Mason Un iversity of 09:10:00 [facility] SEDIMENTATION RATE 2019-10-27 Faustino Mason of 09:10:00 [facility] CBC WITH DIFFERENTIAL 2019-10-27 Faustino Mason [place] of 09:10:00 [facility] N-TERMINAL PRO-BNP 2019-10-27 Marlon, Faustino [place] of 09:10:00 [facility] POCT GLUCOSE (AUTOMATED) 2019-10-27 Faustino Mason [facility] ity of 08:44:00 [facility] POCT GLUCOSE (AUTOMATED) 2019-10-27 Faustino Mason [facility] ity of 06:32:00 [facility] POCT GLUCOSE (AUTOMATED) 2019-10-27 Aisha Bah Univer sity of 05:30:00 [facility] CBC WITH DIFFERENTIAL 2019-10-27 Aisha Bah Universit y of 04:30:00 [facility] GLYCOSYLATED HEMOGLOBIN (A1C) 2019-10-27 Faustino Mason Un iversity of 04:30:00 [facility] CORONAVIRUS COVID-19 TESTING 2019-10-27 Aisha Bah Un iversity of 04:30:00 [facility] POCT GLUCOSE (AUTOMATED) 2019-10-27 Aisha Bah Univer sity of 04:29:00 [facility] POCT GLUCOSE (AUTOMATED) 2019-10-27 Aisha Bah Univer sity of 03:32:00 [facility] POCT GLUCOSE (AUTOMATED) 2019-10-27 Aisha Bah Univer sity of 02:53:00 [facility] PHOSPHORUS 2019-10-27 Faustino Mason [place] of 02:47:00 [facility] CREATINE KINASE 2019-10-27 Faustino Mason [place] of 02:47:00 [facility] URIC ACID 2019-10-27 Faustino Mason [place] of 02:47:00 [facility] LIPASE 2019-10-27 Faustino Mason [place] of 02:47:00 [facility] MAGNESIUM 2019-10-27 [facility] 02:47:00 [facility] FERRITIN SERUM 2019-10-27 Marlon, [facility] of 02:47:00 [facility] TROPONIN I 2019-10-27 [facility] of 02:47:00 [facility] HEPATIC FUNCTION PANEL ([id number]) 2019-10-27 [facility] niversity of (ALB,T.PRO,BILI 02:47:00 [facility],BU/BC,ALT,AST,ALK PHOS) Branch BASIC METABOLIC PANEL (NA, K, CL, 2019-10-27 [facility] of CO2, GLUCOSE, BUN, CREATININE, CA) 02:47:00 [facility] LIPID PANEL ([id number])(TOTAL 2019-10-27 [facility] sity of CHOLESTEROL, TRIGLYCERIDES, HDL) 02:47:00 [facility] EKG-12 LEAD 2019-10-27 [facility] of 02:12:49 [facility] EKG-12 LEAD 2019-10-27 [facility] of 01:34:49 [facility] URIC ACID 2019-10-26 [facility] of 20:20:00 [facility] IRON PANEL 2019-10-26 [facility] 20:20:00 [facility] ASSIGNMENT OF BENEFITS 2019-10-26 Doctor Universit y of 19:55:10 Unassigned, No [facility] POCT GLUCOSE (AUTOMATED) 2019-10-01 Pritesh Sunshine Univer sity of 16:41:00 [facility] BASIC METABOLIC PANEL (NA, K, CL, 2019-10-01 Lauro Mcneil [place] of CO2, GLUCOSE, BUN, CREATININE, CA) 12:53:00 [facility] POCT GLUCOSE (AUTOMATED) 2019-10-01 Pritesh Sunshine Univer sity of 12:18:00 [facility] POCT GLUCOSE (AUTOMATED) 2019-10-01 Pritesh Sunshine Univer sity of 01:51:00 [facility] POCT GLUCOSE (AUTOMATED) 2019-09-30 Pritesh Sunshine Univer sity of 21:28:00 [facility] POCT GLUCOSE (AUTOMATED) 2019-09-30 Pritesh Sunshine Univer sity of 16:51:00 [facility] POCT GLUCOSE (AUTOMATED) 2019-09-30 Pritesh Sunshine [facility] sity of 12:41:00 [facility] OCCULT (GUAIAC) BLOOD 2019-09-30 [facility] of 09:00:00 [facility] MAGNESIUM 2019-09-30 [facility] of 08:25:00 [facility] BASIC METABOLIC PANEL (NA, K, CL, 2019-09-30 [facility] of CO2, GLUCOSE, BUN, CREATININE, CA) 08:25:00 [facility] CT THORAX WO CONTRAST 2019-09-30 [facility] of 02:53:31 [facility] URINALYSIS 2019-09-30 Brennan, [facility] of 02:28:00 [facility] EXTRA TUBE URINE CULTURE 2019-09-30 Anu [facility] ity of 02:28:00 [facility] POCT GLUCOSE (AUTOMATED) 2019-09-30 Pritesh Sunshine [facility] sity of 01:26:00 [facility] XR CHEST 1 VW 2019-09-29 Anu [facility] of 22:13:05 [facility] XR FOOT 3+ VW RIGHT 2019-09-29 [facility] 22:13:05 [facility] TROPONIN I 2019-09-29 Brennan, [facility] of 21:57:00 [facility] HEPATIC FUNCTION PANEL ([id number]) 2019-09-29 BrennanChong denis niversity of (ALB,T.PRO,BILI 21:57:00 [facility],BU/BC,ALT,AST,ALK PHOS) [place] BASIC METABOLIC PANEL (NA, K, CL, 2019-09-29 Brennan, Mofrancisco [place] of CO2, GLUCOSE, BUN, CREATININE, CA) 21:57:00 [facility] CBC WITH DIFFERENTIAL 2019-09-29 Brennan, [facility] of 21:57:00 [facility] PROTHROMBIN TIME / INR 2019-09-29 [facility] 21:57:00 [facility] ACTIVATED PARTIAL THRMPLAS CARLTON 2019-09-29 Chong Brennan U niversity of 21:57:00 [facility] N-TERMINAL PRO-BNP 2019-09-29 Anu [facility] of 21:57:00 [facility] EKG-12 LEAD 2019-09-29 Chong Brennan [place] of 21:47:42 [facility] COMP. METABOLIC PANEL ([id number]) 2019-09-29 Igor Borrego Un iversity of 15:14:00 [facility] CBC WITH DIFFERENTIAL 2019-09-29 Elmo [facility] of 15:14:00 [facility] XR CHEST 2 VW 2019-09-29 [place], [facility] of 14:58:38 [facility] CONSENT/REFUSAL FOR DIAGNOSIS AND 2019-09-29 Doctor [facility] TREATMENT 14:13:28 Unassigned, No [facility] ASSIGNMENT OF BENEFITS 2019-09-29 Doctor [facility] y of 14:13:08 Unassigned, No [facility] REFERRAL OCCUPATIONAL THERAPY 2019-09-28 Gilberto Byrne Un iversity of 00:00:00 [facility] [B] CMP 2019-09-28 University 00:00:00 [facility] [B] CBC 2019-09-28 University of 00:00:00 [facility] ASSIGNMENT OF BENEFITS 2019-09-21 Doctor [facility] y of 18:05:04 Unassigned, No [facility] CONSENT/REFUSAL FOR DIAGNOSIS AND 2019-09-21 [facility] 18:03:13 Unassigned, No [facility] NOTICE OF BILLING PRACTICES FOR 2019-09-21 [facility] MEDICARE PATIENTS 18:02:38 Unassigned, No [facility] Name [place] CONSENT TO PHOTOGRAPH 2019-09-21 [facility] of 05:01:00 Unassigned, No [facility] REFERRAL OCCUPATIONAL THERAPY 2019-09-21 Gilberto Byrne Un iversity of 00:00:00 [facility] XR CHEST 2 VW 2019-09-19 Gisselle Kwon [place] of 01:24:42 [facility] POCT GLUCOSE (AUTOMATED) 2019-09-15 u Krishan, [facility] ity of 17:47:00 [facility] BASIC METABOLIC PANEL (NA, K, CL, 2019-09-15 Derrick Curiel [place] [id number], GLUCOSE, BUN, CREATININE, CA) 16:59:00 [facility] CBC WITH DIFFERENTIAL 2019-09-15 [facility], [place] of 16:59:00 [facility] POCT GLUCOSE (AUTOMATED) 2019-09-15 [facility], Univers ity of 13:32:00 [facility] POCT GLUCOSE (AUTOMATED) 2019-09-15 [facility], Univers ity of 03:19:00 [facility] POCT GLUCOSE (AUTOMATED) 2019-09-14 Abu Ather, Univers ity of 22:25:00 [facility] POCT GLUCOSE (AUTOMATED) 2019-09-14 [facility], Univers ity of 17:45:00 [facility] XR CHEST 1 VW 2019-09-14 [facility] of 13:58:44 [facility] POCT GLUCOSE (AUTOMATED) 2019-09-14 [facility], Univers ity of 13:29:00 [facility] MAGNESIUM 2019-09-14 [facility] of 09:47:00 [facility] BASIC METABOLIC PANEL (NA, K, CL, 2019-09-14 [facility] of CO2, GLUCOSE, BUN, CREATININE, CA) 09:47:00 [facility] EXTRA TUBE LT. GREEN 2019-09-14 [facility] University of 09:47:00 [facility] POCT GLUCOSE (AUTOMATED) 2019-09-14 [facility], Univers ity of 08:10:00 [facility] POCT GLUCOSE (AUTOMATED) 2019-09-14 [facility] Univers ity of 02:18:00 [facility] POCT GLUCOSE (AUTOMATED) 2019-09-13 [facility] Univers ity of 23:04:00 [facility] POCT GLUCOSE (AUTOMATED) 2019-09-13 [facility] Univers ity of 17:43:00 [facility] POCT GLUCOSE (AUTOMATED) 2019-09-13 [facility] Univers ity of 13:11:00 [facility] SPUTUM CULTURE 2019-09-13 [facility] of 12:07:00 [facility] MAGNESIUM 2019-09-13 [facility] of 09:51:00 [facility] BASIC METABOLIC PANEL (NA, K, CL, 2019-09-13 [facility] of CO2, GLUCOSE, BUN, CREATININE, CA) 09:51:00 [facility] CBC WITH DIFFERENTIAL 2019-09-13 [facility] of 09:51:00 [facility] POCT GLUCOSE (AUTOMATED) 2019-09-13 Abu [place], Univers ity of 02:18:00 [facility] MAGNESIUM 2019-09-13 [facility] of 00:05:00 [facility] TROPONIN I 2019-09-13 [facility] of 00:05:00 [facility] PROCALCITONIN 2019-09-13 [facility] of 00:05:00 [facility] POCT GLUCOSE (AUTOMATED) 2019-09-12 Abu [place], Univers ity of 22:24:00 [facility] POCT GLUCOSE (AUTOMATED) 2019-09-12 Sang Leal ity of 19:31:00 [facility] ACTIVATED PARTIAL THRMPLAS CARLTON 2019-09-12 Sang Leal U niversity of 18:05:00 [facility] EKG-12 LEAD 2019-09-12 Sang Leal of 16:53:02 [facility] BLOOD CULTURE SCREEN 2019-09-12 Sang Leal [place] of 16:25:00 [facility] LACTIC ACID WHOLE BLOOD 2019-09-12 Sang Leali ty of 16:11:00 [facility] BLOOD CULTURE SCREEN 2019-09-12 Sang Leal of 16:10:00 [facility] PROTHROMBIN TIME / INR 2019-09-12 Sang Lealit y of 15:45:00 [facility] CBC WITH DIFFERENTIAL 2019-09-12 Sang Leal of 15:39:00 [facility] XR CHEST 1 VW 2019-09-12 Sang Leal [place] of 15:34:44 [facility] POCT GLUCOSE (AUTOMATED) 2019-09-12 Sang Leal ity of 15:24:00 [facility] LIPASE 2019-09-12 Sang Leal of 15:21:00 [facility] MAGNESIUM 2019-09-12 Singer Sang Vito of 15:21:00 [facility] TROPONIN I 2019-09-12 Singer [facility] of 15:21:00 [facility] COMP. METABOLIC PANEL (45648) 2019-09-12 Sang Leal iversity of 15:21:00 [facility] N-TERMINAL PRO-BNP 2019-09-12 Leal, [facility] of 15:21:00 [facility] EKG-12 LEAD 2019-09-12 [facility] of 15:17:38 [facility] EMERGENCY SERVICES AGREEMENTS AND 2019-09-12 [employer] of AUTHORIZATIONS 06:01:00 Unassigned, No [facility] POCT GLUCOSE (AUTOMATED) 2019-09-07 Alnas, Majd [employer] [facility] of 18:10:00 [facility] POCT GLUCOSE (AUTOMATED) 2019-09-07 Alnas, Majd [employer] [facility] of 14:24:00 [facility] POCT GLUCOSE (AUTOMATED) 2019-09-07 Alnas, Majd [employer] [facility] of 02:48:00 [facility] POCT GLUCOSE (AUTOMATED) 2019-09-06 Alnas, Majd [employer] [facility] of 23:24:00 [facility] POCT GLUCOSE (AUTOMATED) 2019-09-06 Alnas, Majd [employer] [facility] of 18:22:00 [facility] POCT GLUCOSE (AUTOMATED) 2019-09-06 Joshua, Majd [employer] [facility] of 13:58:00 [facility] PHOSPHORUS 2019-09-06 [facility] of 07:01:00 [facility] BASIC METABOLIC PANEL (NA, K, CL, 2019-09-06 [facility] of CO2, GLUCOSE, BUN, CREATININE, CA) 07:01:00 [facility] CBC WITH DIFFERENTIAL 2019-09-06 [facility] of 07:01:00 [facility] POCT GLUCOSE (AUTOMATED) 2019-09-06 Aleliana, Majd [employer] [facility] of 01:21:00 [facility] POCT GLUCOSE (AUTOMATED) 2019-09-05 Alnas, Majd [employer] [facility] of 23:00:00 [facility] POCT GLUCOSE (AUTOMATED) 2019-09-05 Alnas, Majd [employer] [facility] of 18:39:00 [facility] POCT GLUCOSE (AUTOMATED) 2019-09-05 Alnas, Maj[facility] [employer] [facility] of 13:46:00 [facility] XR CHEST 1 VW 2019-09-05 Abu Ather, [place] of 11:35:00 [facility] PHOSPHORUS 2019-09-05 Abu Atherah, [place] of 09:46:00 Emran [facility] MAGNESIUM 2019-09-05 [facility] 09:46:00 [facility] BASIC METABOLIC PANEL (NA, K, CL, 2019-09-05 [facility] of CO2, GLUCOSE, BUN, CREATININE, CA) 09:46:00 [facility] CBC WITH DIFFERENTIAL 2019-09-05 [facility] of 09:46:00 [facility] POCT GLUCOSE (AUTOMATED) 2019-09-05 Mario Lewis ity of 05:57:00 [facility] POCT GLUCOSE (AUTOMATED) 2019-09-05 Gris, Radheshyam Unive rsity of 03:18:00 [facility] POCT GLUCOSE (AUTOMATED) 2019-09-05 Gris, Radheshyam Unive rsity of 02:54:00 [facility] POCT GLUCOSE (AUTOMATED) 2019-09-04 Gris, Radheshyam Unive rsity of 22:13:00 [facility] POCT GLUCOSE (AUTOMATED) 2019-09-04 Gris, Radheshyam Unive rsity of 17:58:00 [facility] POCT GLUCOSE (AUTOMATED) 2019-09-04 Gris, Radheshyam Unive rsity of 14:17:00 [facility] IONIZED CALCIUM 2019-09-04 [facility] of 12:48:00 [facility] EKG-12 LEAD 2019-09-04 [place] [facility] of 11:31:27 [facility] XR CHEST 1 VW 2019-09-04 [place], [facility] 11:20:00 [facility] POCT GLUCOSE (AUTOMATED) 2019-09-04 Gris, Radheshyam Unive rsity of 10:48:00 [facility] MAGNESIUM 2019-09-04 Elmo, [facility] of 10:45:00 [facility] BASIC METABOLIC PANEL (NA, K, CL, 2019-09-04 [facility] CO2, GLUCOSE, BUN, CREATININE, CA) 10:45:00 [facility] CBC WITH DIFFERENTIAL 2019-09-04 Elmo, [facility] 10:45:00 [facility] POCT GLUCOSE (AUTOMATED) 2019-09-04 Gris, Radheshyam Unive rsity of 09:08:00 [facility] POCT GLUCOSE (AUTOMATED) 2019-09-04 Gris, Radheshyam Unive rsity of 05:33:00 [facility] POCT GLUCOSE (AUTOMATED) 2019-09-04 Gris, Radheshyam Unive rsity of 03:33:00 [facility] POCT GLUCOSE (AUTOMATED) 2019-09-04 Gris, Radheshyam Unive rsity of 01:47:00 [facility] POCT GLUCOSE (AUTOMATED) 2019-09-04 Gris, Radheshyam Unive rsity of 01:29:00 [facility] POCT GLUCOSE (AUTOMATED) 2019-09-03 Gris, Radheshyam Unive rsity of 23:26:00 [facility] XR CHEST 1 VW 2019-09-03 [place], [facility] of 22:20:00 [facility] POCT GLUCOSE (AUTOMATED) 2019-09-03 Gris, Radheshyam Unive rsity of 22:05:00 [facility] POCT GLUCOSE (AUTOMATED) 2019-09-03 Gris, Radheshyam Unive rsity of 17:27:00 [facility] POCT GLUCOSE (AUTOMATED) 2019-09-03 Gris, Radheshyam Unive rsity of 14:41:00 [facility] XR CHEST 1 VW 2019-09-03 [facility] of 11:25:00 [facility] EKG-12 LEAD 2019-09-03 [place] [facility] of 11:12:03 [facility] MAGNESIUM 2019-09-03 [facility] of 09:41:00 [facility] BASIC METABOLIC PANEL (NA, K, CL, 2019-09-03 [facility] of CO2, GLUCOSE, BUN, CREATININE, CA) 09:41:00 [facility] CBC WITH DIFFERENTIAL 2019-09-03 [facility] 09:40:00 [facility] POCT GLUCOSE (AUTOMATED) 2019-09-03 Gris, Radheshyam Unive rsity of 09:04:00 [facility] POCT GLUCOSE (AUTOMATED) 2019-09-03 Gris, Radheshyam Unive rsity of 06:01:00 [facility] POCT GLUCOSE (AUTOMATED) 2019-09-03 Gris, Radheshyam Unive rsity of 01:24:00 [facility] POCT GLUCOSE (AUTOMATED) 2019-09-02 Gris, Radheshyam Unive rsity of 22:05:00 [facility] POCT GLUCOSE (AUTOMATED) 2019-09-02 Gris, Radheshyam Unive rsity of 18:41:00 [facility] POCT GLUCOSE (AUTOMATED) 2019-09-02 Gris, Radheshyam Unive rsity of 13:45:00 [facility] XR CHEST 1 VW 2019-09-02 [facility] of 12:20:00 [facility] POCT GLUCOSE (AUTOMATED) 2019-09-02 Gris, Radhumzaam Unive rsity of 10:14:00 [facility] PHOSPHORUS 2019-09-02 [facility] [place] of 07:23:00 [facility] MAGNESIUM 2019-09-02 [facility] of 07:23:00 [facility] HEPATIC FUNCTION PANEL (33370) 2019-09-02 [facility] of (ALB,T.PRO,BILI 07:23:00 [facility],BU/BC,ALT,AST,ALK PHOS) [place] BASIC METABOLIC PANEL (NA, K, CL, 2019-09-02 [facility] [place] of CO2, GLUCOSE, BUN, CREATININE, CA) 07:23:00 [facility] PROFILE / HEMOGRAM 2019-09-02 [facility] [place] of 07:23:00 [facility] ABG+COOX+NA+K+GLU+CA2+ 2019-09-02 [facility] y of 07:22:00 [facility] POCT GLUCOSE (AUTOMATED) 2019-09-02 Esther Landryhyam Unive rsity of 06:27:00 [facility] POCT GLUCOSE (AUTOMATED) 2019-09-02 Gris, Radluigihyam Unive rsity of 05:03:00 [facility] AC PANEL 20 + LACTIC ACID 2019-09-02 [facility] sity of 03:02:00 [facility] POCT GLUCOSE (AUTOMATED) 2019-09-02 Gris, Radheshyam Unive rsity of 01:18:00 [facility] POCT GLUCOSE (AUTOMATED) 2019-09-01 Gris, Radheshyam Unive rsity of 23:54:00 [facility] PHOSPHORUS 2019-09-01 Elmo, [facility] of 23:32:00 [facility] MAGNESIUM 2019-09-01 Elmo, [facility] of 23:32:00 [facility] BASIC METABOLIC PANEL (NA, K, CL, 2019-09-01 Elmo, [facility] of CO2, GLUCOSE, BUN, CREATININE, CA) 23:32:00 [facility] ACTIVATED PARTIAL THRMPLAS CARLTON 2019-09-01 [place], [facility] niversity of 23:32:00 [facility] ABG+COOX+NA+K+GLU+CA2+ 2019-09-01 [facility] y of 23:31:00 [facility] MRSA / MSSA SCREEN BY PCR, BRITNEY 2019-09-01 [facility] of 23:12:00 [facility] PREPARE PACKED RBC 2019-09-01 [place], [facility] of 20:58:25 [facility] PROTHROMBIN TIME / INR 2019-09-01 [place], [facility] y of 20:47:00 [facility] ACTIVATED PARTIAL THRMPLAS CARLTON 2019-09-01 [place], [facility] niversity of 20:47:00 [facility] AC PANEL 20 + LACTIC ACID 2019-09-01 [place], [facility] sity of 20:47:00 [facility] TRANSFUSE PACKED RBC 2019-09-01 [place], [facility] of 20:35:41 [facility] POCT GLUCOSE (AUTOMATED) 2019-09-01 Gris, [facility] rsity of 20:32:00 [facility] EKG-12 LEAD 2019-09-01 Elmo, [facility] of 20:01:09 [facility] XR CHEST 1 VW 2019-09-01 [facility] of 19:41:56 [facility] PHOSPHORUS 2019-09-01 [place], [facility] of 19:38:00 [facility] MAGNESIUM 2019-09-01 [place], [facility] of 19:38:00 [facility] BASIC METABOLIC PANEL (NA, K, CL, 2019-09-01 [facility] of CO2, GLUCOSE, BUN, CREATININE, CA) 19:38:00 [facility] CBC WITH DIFFERENTIAL 2019-09-01 [facility] of 19:38:00 [facility] ABG+COOX+NA+K+GLU+CA2+ 2019-09-01 Juve [facility] y of 19:30:00 [facility] ISTAT ACUTE CARE ARTERIAL 2019-09-01 Gris, [facility] ersity of 17:59:00 [facility] POCT ACT HIGH RANGE 2019-09-01 [facility], [facility] of 17:56:00 [facility] TRANSFUSE PACKED RBC 2019-09-01 [facility], [facility] y of 17:32:38 [facility] ISTAT ACUTE CARE ARTERIAL 2019-09-01 Gris, [facility] ersity of 17:04:00 [facility] POCT ACT HIGH RANGE 2019-09-01 [facility], [facility] of 17:01:00 [facility] HEMOGLOBIN 2019-09-01 Domingo, [facility] of 16:58:00 [facility] HEMATOCRIT 2019-09-01 Domingo, [facility] of 16:58:00 [facility] PLATELET COUNT 2019-09-01 Domingo, [facility] of 16:58:00 [facility] PROTHROMBIN TIME / INR 2019-09-01 Domingo, [facility] of 16:58:00 [facility] ACTIVATED PARTIAL THRMPLAS CARLTON 2019-09-01 [facility], [facility] of 16:58:00 [facility] FIBRINOGEN 2019-09-01 Domingo, [facility] of 16:58:00 [facility] ACUTE CARE ARTERIAL 2019-09-01 Gris, [facility] ersity of 16:38:00 [facility] POCT ACT HIGH RANGE 2019-09-01 Gris, [facility] of 16:35:00 [facility] ISTAT ACUTE CARE ARTERIAL 2019-09-01 Gris, [facility] ersity of 16:07:00 [facility] POCT ACT HIGH RANGE 2019-09-01 Gris, [facility] of 16:05:00 [facility] 2019-09-01 Gris, [facility] ersity of 15:40:00 [facility] POCT ACT HIGH RANGE 2019-09-01 Gris, [facility] of 15:21:00 [facility] TRANSFUSE PACKED RBC 2019-09-01 [facility] y of 15:15:20 [facility] TRANSFUSE PACKED RBC 2019-09-01 [facility] y of 15:15:01 [facility] POCT ACT HIGH RANGE 2019-09-01 Gris, [facility] of 15:10:00 [facility] ACUTE CARE ARTERIAL 2019-09-01 [facility], [facility] ersity of 15:03:00 [facility] POCT ACT HIGH RANGE 2019-09-01 Gris, [facility] of 15:00:00 [facility] PREPARE PACKED RBC 2019-09-01 [facility] of 14:20:50 [facility] TRANSFUSE PACKED RBC 2019-09-01 [facility] y of 14:06:15 [facility] ACUTE CARE ARTERIAL 2019-09-01 Gris, [facility] ersity of 13:58:00 [facility] POCT ACT HIGH RANGE 2019-09-01 [facility] of 13:55:00 [facility] PREPARE PACKED RBC 2019-09-01 [place] [facility] of 12:50:33 [facility] CORONARY ARTERY BYPASS GRAFT 2019-09-01 [place], [facility] versity of 12:35:00 [facility] EKG-12 LEAD 2019-09-01 Elmo, [facility] of 11:59:37 [facility] POCT GLUCOSE (AUTOMATED) 2019-09-01 Gris, [facility] Unive rsity of 11:28:00 [facility] POCT GLUCOSE (AUTOMATED) 2019-09-01 Gris, [facility] Unive rsity of 09:35:00 [facility] POCT GLUCOSE (AUTOMATED) 2019-09-01 Gris, [facility] Unive rsity of 05:58:00 [facility] POCT GLUCOSE (AUTOMATED) 2019-09-01 [facility], [facility] Unive rsity of 02:15:00 [facility] POCT GLUCOSE (AUTOMATED) 2019-08-31 Gris, [facility] Unive rsity of 22:11:00 [facility] HB ABO GROUPING 2019-08-31 [place] [facility] of 20:04:00 [facility] POCT GLUCOSE (AUTOMATED) 2019-08-31 Gris, Radheshyam Unive rsity of 17:32:00 [facility] POCT GLUCOSE (AUTOMATED) 2019-08-31 Gris, Radheshyam Unive rsity of 13:38:00 [facility] POCT GLUCOSE (AUTOMATED) 2019-08-31 Gris, Radheshyam Unive rsity of 10:30:00 [facility] CBC WITH DIFFERENTIAL 2019-08-31 Pablo Curiel [facility] ty of 10:24:00 [facility] BASIC METABOLIC PANEL (NA, K, CL, 2019-08-31 Derrick Curiel [facility] of CO2, GLUCOSE, BUN, CREATININE, CA) 10:23:00 [facility] POCT GLUCOSE (AUTOMATED) 2019-08-31 Gris, Radheshyam Unive rsity of 06:15:00 [facility] POCT GLUCOSE (AUTOMATED) 2019-08-31 Gris, Radheshyam Unive rsity of 02:07:00 [facility] POCT GLUCOSE (AUTOMATED) 2019-08-30 Gris, Radheshyam Unive rsity of 21:31:00 [facility] POCT GLUCOSE (AUTOMATED) 2019-08-30 Gris, Radheshyam Unive rsity of 17:45:00 [facility] POCT GLUCOSE (AUTOMATED) 2019-08-30 Gris, Radheshyam Unive rsity of 13:52:00 [facility] POCT GLUCOSE (AUTOMATED) 2019-08-30 Gris, Radheshyam Unive rsity of 11:02:00 [facility] POCT GLUCOSE (AUTOMATED) 2019-08-30 Gris, Radheshyam Unive rsity of 05:36:00 [facility] POCT GLUCOSE (AUTOMATED) 2019-08-30 Gris, Radheshyam Unive rsity of 03:26:00 [facility] POCT GLUCOSE (AUTOMATED) 2019-08-29 Gris, Radheshyam Unive rsity of 17:14:00 [facility] POCT GLUCOSE (AUTOMATED) 2019-08-29 Gris, Radheshyam Unive rsity of 13:44:00 [facility] POCT GLUCOSE (AUTOMATED) 2019-08-29 Gris, Radheshyam Unive rsity of 09:52:00 [facility] COMP. METABOLIC PANEL (54957) 2019-08-29 Jadiel Kemp iversity of 09:43:00 [facility] POCT GLUCOSE (AUTOMATED) 2019-08-29 Gris, Radheshyam Unive rsity of 06:19:00 [facility] POCT GLUCOSE (AUTOMATED) 2019-08-29 Gris, Radheshyam Unive rsity of 03:44:00 [facility] US ABDOMEN LIMITED WITH DOPPLER 2019-08-28 Jadiel Kemp [place] of 22:49:00 [facility] POCT GLUCOSE (AUTOMATED) 2019-08-28 Gris, Radheshyam Unive rsity of 21:32:00 [facility] POCT GLUCOSE (AUTOMATED) 2019-08-28 Gris, Radheshyam Unive rsity of 17:20:00 [facility] MAGNESIUM 2019-08-28 [facility] of 14:28:00 [facility]3] BASIC METABOLIC PANEL (NA, K, CL, 2019-08-28 [facility] of CO2, GLUCOSE, BUN, CREATININE, CA) 14:28:00 [facility]3] CBC WITH DIFFERENTIAL 2019-08-28 [facility] y of 14:28:00 [facility]3] POCT GLUCOSE (AUTOMATED) 2019-08-28 Gris, Radheshyam Unive rsity of 13:25:00 [facility] POCT GLUCOSE (AUTOMATED) 2019-08-28 Gris, Radheshyam Unive rsity of 07:19:00 [facility] POCT GLUCOSE (AUTOMATED) 2019-08-28 Gris, Radheshyam Unive rsity of 03:00:00 [facility] POCT GLUCOSE (AUTOMATED) 2019-08-27 Gris, Radheshyam Unive rsity of 21:45:00 [facility] POCT GLUCOSE (AUTOMATED) 2019-08-27 Gris, Radheshyam Unive rsity of 17:51:00 [facility] CT THORAX WO CONTRAST 2019-08-27 [facility] of 16:53:12 [facility] POCT GLUCOSE (AUTOMATED) 2019-08-27 Gris, Radheshyam Unive rsity of 13:54:00 [facility] POCT GLUCOSE (AUTOMATED) 2019-08-27 Gris, Radheshyam Unive rsity of 10:34:00 [facility] POCT GLUCOSE (AUTOMATED) 2019-08-27 Gris, Radheshyam Unive rsity of 05:56:00 [facility] POCT GLUCOSE (AUTOMATED) 2019-08-27 Gris, Radheshyam Unive rsity of 04:11:00 [facility] POCT GLUCOSE (AUTOMATED) 2019-08-27 Gris, Radheshyam Unive rsity of 01:25:00 [facility] POCT GLUCOSE (AUTOMATED) 2019-08-26 Gris, Radheshyam Unive rsity of 23:42:00 [facility] POCT GLUCOSE (AUTOMATED) 2019-08-26 Gris, Radheshyam Unive rsity of 22:59:00 [facility] ACUTE CARE ARTERIAL BLOOD GAS 2019-08-26 Jadiel Kemp iversity of 20:19:00 [facility] BILATERAL VEIN MAPPING BY VASCULAR 2019-08-26 Jadiel Kemp [place] of LAB 19:12:01 [facility] POCT GLUCOSE (AUTOMATED) 2019-08-26 Gris, Radheshyam Unive rsity of 18:06:00 [facility] POCT GLUCOSE (AUTOMATED) 2019-08-26 Gris, Radheshyam Unive rsity of 15:29:00 [facility] COLONOSCOPY (ENDO) 2019-08-26 Grzegorz Crum [place] o f 14:06:55 [facility] SURGICAL PATHOLOGY EXAM 2019-08-26 Mar[facility] Osman [facility] of 13:44:00 [facility] COLONOSCOPY 2019-08-26 Marlo Osman [place] of 13:20:00 [facility] ESOPHAGOGASTRODUODENOSCOPY 2019-08-26 [facility] of 13:20:00 [facility] EGD (ENDO) 2019-08-26 Grzegorz Crum [place] of 12:37:08 [facility] POCT GLUCOSE (AUTOMATED) 2019-08-26 Gris, Radheshyam Unive rsity of 11:51:00 [facility] POCT GLUCOSE (AUTOMATED) 2019-08-25 Gris, Radheshyam Unive rsity of 21:37:00 [facility] POCT GLUCOSE (AUTOMATED) 2019-08-25 Gris, Radheshyam Unive rsity of 20:44:00 [facility] POCT GLUCOSE (AUTOMATED) 2019-08-25 Gris, Radheshyam Unive rsity of 20:43:00 [facility] POCT GLUCOSE (AUTOMATED) 2019-08-25 Gris, Radheshyam Unive rsity of 20:11:00 [facility] POCT GLUCOSE (AUTOMATED) 2019-08-25 Gris, Radheshyam Unive rsity of 19:43:00 [facility] POCT GLUCOSE (AUTOMATED) 2019-08-25 Gris, Radheshyam Unive rsity of 18:58:00 [facility] POCT GLUCOSE (AUTOMATED) 2019-08-25 Gris, Radheshyam Unive rsity of 18:36:00 [facility] POCT GLUCOSE (AUTOMATED) 2019-08-25 Gris, Radheshyam Unive rsity of 18:17:00 [facility] POCT GLUCOSE (AUTOMATED) 2019-08-25 Gris, Radheshyam Unive rsity of 18:10:00 [facility] POCT GLUCOSE (AUTOMATED) 2019-08-25 Gris, Radheshyam Unive rsity of 18:02:00 [facility] POCT GLUCOSE (AUTOMATED) 2019-08-25 Gris, Radheshyam Unive rsity of 17:56:00 [facility] BASIC METABOLIC PANEL (NA, K, CL, 2019-08-25 [facility] of CO2, GLUCOSE, BUN, CREATININE, CA) 10:41:00 [facility] CBC WITH DIFFERENTIAL 2019-08-25 [facility] 10:41:00 [facility] XR KUB 2019-08-25 [facility] of 04:48:36 [facility] POCT GLUCOSE (AUTOMATED) 2019-08-25 [facility] of 02:02:00 [facility] POCT GLUCOSE (AUTOMATED) 2019-08-24 Harris [facility] [employer] [facility] of 22:18:00 [facility] POCT GLUCOSE (AUTOMATED) 2019-08-24 Harris Gar[facility] [employer] [facility] of 18:17:00 [facility] POCT GLUCOSE (AUTOMATED) 2019-08-24 Harris [facility] of 13:57:00 [facility] BASIC METABOLIC PANEL (NA, K, CL, 2019-08-24 [facility] of CO2, GLUCOSE, BUN, CREATININE, CA) 12:02:00 [facility] CBC WITH DIFFERENTIAL 2019-08-24 [facility] of 12:02:00 [facility] POCT GLUCOSE (AUTOMATED) 2019-08-24 Kayla, [facility] of 10:27:00 [facility] POCT GLUCOSE (AUTOMATED) 2019-08-24 Davidah, [facility] of 05:43:00 [facility] POCT GLUCOSE (AUTOMATED) 2019-08-24 [facility] of 01:53:00 [facility] POCT GLUCOSE (AUTOMATED) 2019-08-23 [facility] of 23:06:00 [facility] IRON 2019-08-23 [facility] of 21:20:00 [facility] TOTAL IRON BINDING CAPACITY 2019-08-23 Marlo Osman [facility] versity of 21:20:00 [facility] POCT GLUCOSE (AUTOMATED) 2019-08-23 Kayla, [facility] of 18:03:00 [facility] POCT GLUCOSE (AUTOMATED) 2019-08-23 Kayla, [facility] of 14:22:00 [facility] POCT GLUCOSE (AUTOMATED) 2019-08-23 [facility] of 11:49:00 [facility] MAGNESIUM 2019-08-23 [facility] of 10:25:00 [facility] BASIC METABOLIC PANEL (NA, K, CL, 2019-08-23 [facility] of CO2, GLUCOSE, BUN, CREATININE, CA) 10:25:00 [facility] CBC WITH DIFFERENTIAL 2019-08-23 [facility] of 10:25:00 [facility] N-TERMINAL PRO-BNP 2019-08-23 [facility] of 10:25:00 [facility] POCT GLUCOSE (AUTOMATED) 2019-08-23 [facility] of 06:21:00 [facility] POCT GLUCOSE (AUTOMATED) 2019-08-23 [facility] of 01:52:00 [facility] POCT GLUCOSE (AUTOMATED) 2019-08-22 [facility] of 23:30:00 [facility] POCT GLUCOSE (AUTOMATED) 2019-08-22 [facility] of 17:42:00 [facility] XR CHEST 1 VW 2019-08-22 [facility] of 10:25:58 [facility] POCT GLUCOSE (AUTOMATED) 2019-08-22 [facility] of 09:59:00 [facility] CBC WITH DIFFERENTIAL 2019-08-22 [facility] of 08:01:00 [facility] MAGNESIUM 2019-08-22 [facility] of 08:00:00 [facility] BASIC METABOLIC PANEL (NA, K, CL, 2019-08-22 [facility] of CO2, GLUCOSE, BUN, CREATININE, CA) 08:00:00 [facility] N-TERMINAL PRO-BNP 2019-08-22 [facility] of 08:00:00 [facility] POCT GLUCOSE (AUTOMATED) 2019-08-22 [facility] of 06:01:00 [facility] POCT GLUCOSE (AUTOMATED) 2019-08-22 [facility] of 03:04:00 [facility] CATH PROCEDURE LOG 2019-08-22 [facility] of 00:10:24 Unassigned, No [facility] POCT GLUCOSE (AUTOMATED) 2019-08-21 [facility] of 22:39:00 [facility] POCT GLUCOSE (AUTOMATED) 2019-08-21 [facility] of 18:30:00 [facility] POCT GLUCOSE (AUTOMATED) 2019-08-21 [facility] of 13:53:00 [facility] POCT GLUCOSE (AUTOMATED) 2019-08-21 [facility] of 10:01:00 [facility] MRSA / MSSA SCREEN BY BRITNEY MTZ 2019-08-21 Juve Rafia [place] of 08:04:00 [facility] BASIC METABOLIC PANEL (NA, K, CL, 2019-08-21 [facility] CO2, GLUCOSE, BUN, CREATININE, CA) 08:03:00 [facility] CBC WITH DIFFERENTIAL 2019-08-21 MarlonFaustino walker [place] of 08:03:00 [facility] N-TERMINAL PRO-BNP 2019-08-21 Faustino Mason [place] of 08:03:00 [facility] POCT GLUCOSE (AUTOMATED) 2019-08-21 [facility] of 05:11:00 [facility] POCT GLUCOSE (AUTOMATED) 2019-08-21 [facility] of 03:22:00 [facility] EKG-12 LEAD 2019-08-21 [facility], [facility] of 02:36:48 [facility] EKG-12 LEAD 2019-08-21 [facility], [facility] of 02:36:30 [facility] POCT GLUCOSE (AUTOMATED) 2019-08-20 [facility] of 22:21:00 [facility] POCT GLUCOSE (AUTOMATED) 2019-08-20 [facility] of 17:35:00 [facility] POCT GLUCOSE (AUTOMATED) 2019-08-20 [facility] of 13:40:00 [facility] URIC ACID 2019-08-20 Faustino Mason [place] of 09:36:00 [facility] TROPONIN I 2019-08-20 Marlon [facility] of 09:36:00 [facility] BASIC METABOLIC PANEL (NA, K, CL, 2019-08-20 Faustino Mason [place] of CO2, GLUCOSE, BUN, CREATININE, CA) 09:36:00 [facility] CBC WITH DIFFERENTIAL 2019-08-20 Faustino Mason [place] of 09:36:00 [facility] N-TERMINAL PRO-BNP 2019-08-20 [facility] 09:36:00 [facility] POCT GLUCOSE (AUTOMATED) 2019-08-20 [facility] of 05:32:00 [facility] POCT GLUCOSE (AUTOMATED) 2019-08-20 [facility] of 02:20:00 [facility] VITAMIN B12, LEVEL 2019-08-19 [facility] of 22:59:00 [facility] FOLATE 2019-08-19 [facility] of :59:00 [facility] TROPONIN I 2019-08-19 Anika Cisneros [place] of 22:59:00 [facility] IRON PANEL 2019-08-19 Harris Garza [place] of 22:59:00 [facility] VITAMIN D, 25-OH 2019-08-19 DavidHarris [place] of 22:59:00 [facility] POCT GLUCOSE (AUTOMATED) 2019-08-19 [facility] Garza [facility] ity of 21:22:00 [facility] POCT GLUCOSE (AUTOMATED) 2019-08-19 DavidHarris [facility] ity of 16:58:00 [facility] ECHO ROUTINE W/DOPPLER COLOR 2019-08-19 Anika Cisneros [facility] versity of 14:58:29 [facility] POCT GLUCOSE (AUTOMATED) 2019-08-19 DavidHarris [facility] ity of 13:26:00 [facility] POCT GLUCOSE (AUTOMATED) 2019-08-19 [facility] ity of 09:58:00 [facility] PHOSPHORUS 2019-08-19 [facility], [facility] of 08:59:00 [facility] URIC ACID 2019-08-19 Marlon [facility] of 08:59:00 [facility] MAGNESIUM 2019-08-19 [facility], [facility] of 08:59:00 [facility] FERRITIN SERUM 2019-08-19 David [facility] of 08:59:00 [facility] TROPONIN I 2019-08-19 [facility], [facility] of 08:59:00 [facility] BASIC METABOLIC PANEL (NA, K, CL, 2019-08-19 [facility], [facility] of CO2, GLUCOSE, BUN, CREATININE, CA) 08:59:00 [facility] CBC WITH DIFFERENTIAL 2019-08-19 [facility] of 08:59:00 [facility] N-TERMINAL PRO-BNP 2019-08-19 [facility], [facility] of 08:59:00 [facility] POCT GLUCOSE (AUTOMATED) 2019-08-19 [facility] of 04:38:00 [facility] URIC ACID 2019-08-19 [facility], [facility] of 02:15:00 [facility] LIPID PANEL (34383)(TOTAL 2019-08-19 Anika Cisneros [facility] sity of CHOLESTEROL, TRIGLYCERIDES, HDL) 02:15:00 [facility] TROPONIN I 2019-08-19 [facility] of 02:14:00 [facility] POCT GLUCOSE (AUTOMATED) 2019-08-19 DavidsemajHarris [facility] ity of 01:10:00 [facility] POCT GLUCOSE (AUTOMATED) 2019-08-18 [facility] ity of 23:31:00 [facility] XR CHEST 2 VW 2019-08-18 [facility] of 20:56:25 [facility] LIPASE 2019-08-18 [facility] of 20:42:00 [facility] TROPONIN I 2019-08-18 [facility], [facility] of 20:42:00 [facility] THYROID STIMULATING HORMONE 2019-08-18 [facility] ersity of 20:42:00 [facility] COMP. METABOLIC PANEL (18969) 2019-08-18 pelon [facility] of 20:42:00 [facility] LIPID PANEL (36929)(TOTAL 2019-08-18 [facility] sity of CHOLESTEROL, TRIGLYCERIDES, HDL) 20:42:00 [facility] CBC WITH DIFFERENTIAL 2019-08-18 [facility] of 20:42:00 [facility] GLYCOSYLATED HEMOGLOBIN (A1C) 2019-08-18 Bl[facility] iversity of 20:42:00 [facility] PROTHROMBIN TIME / INR 2019-08-18 [facility] ity of 20:42:00 [facility] ACTIVATED PARTIAL THRMPLAS CARLTON 2019-08-18 [facility] of 20:42:00 [facility] N-TERMINAL PRO-BNP 2019-08-18 Shanae Barney [place] of 20:42:00 [facility] EKG-12 LEAD 2019-08-18 [facility] of 20:32:11 [facility] EKG-12 LEAD 2019-08-18 [facility] of 20:31:05 [facility] NOTICE OF PRIVACY PRACTICES 2019-08-18 [facility] ersity of 20:23:50 Unassigned, No [facility] CONSENT/REFUSAL FOR DIAGNOSIS AND 2019-08-18 [facility] of TREATMENT 20:23:39 Unassigned, No [facility] ASSIGNMENT OF BENEFITS 2019[facility]08-18 [facility] 20:23:13 Unassigned, No [facility] ADMISSION 2019-08-18 Doctor [facility] 06:01:00 Unassigned, No [facility] History of Cyst excision Univers ity [facility] Physicians History of Debridement Universit y [facility] Physicians History of Hand Surgery Universi ty [facility] Physicians History of Knee arthroscopy Univ ersity [facility] Physicians History of University of Esophagogastroduodenoscopy [place] [facility] History of Colonoscopy Universit y [facility] [place] [facility] History of Surgical removal of U niversity of foreign body [place] [facility] History of CABG [facility] Physicians Encounters Start End Encounter Admission Attending Care Care Encounter Source Date/Time Date/Time Type Type Clinicians Facility Department ID 2021-05-14 Inpatient U TEREZA, [facility] [id number] Univers 12:00:24 VONDA ity [facility] 2021-05-12 Emergency [facility] [id number] Univers 23:59:53 ity [facility] 2021-05-11 Emergency [facility] [id number] Univers [facility]:53[facility] 2021-04-12 2021-04-12 Refill [facility] 1.2.840.114 [id number] Univers 00:00:00 00:00:00 Derrick PRIMARY [id number] it [place] [id number] Nm dical [address] Branch 2020-12-27 2020-12-27 Refill [facility] 1.2.840.114 [id number] Univers 00:00:00 00:00:00 Derrick PRIMARY [id number] it y [place] [phone] Nm dical [address] 2020-12-27 2020-12-27 Refill [facility] 1.2.840.114 [id number] 00:00:00 00:00:00 Derrick PRIMARY 350.1.13.10 CARE 4.2.7.2.686 PAVILLION [id number] 389 2020-12-16 2020-12-16 Orders Doctor CUNHA 1.2.840.114 [id number] Univers 00:00:00 00:00:00 Only Unassigned, LINK 350.1.13.10 ity of [place] [facility] 4.2.7.2.686 You as [phone] [facility] 009 Branch 2020-12-16 2020-12-16 Orders Doctor ALPHONSE 1.2.840.114 [id number] 00:00:00 00:00:00 Only Unassigned, LINK 350.1.13.10 [place] [facility] 4.2.7.2.686 [id number] 009 2020-11-30 2020-11-30 Patient Jatin Douglas 1.2.840.114 [id number] Univers 00:00:00 00:00:00 Outreach Hugh Mcnally 350.1.13.10 ity of [place] [phone] [facility] 403 Branch 2020-11-30 2020-11-30 Patient Jatin Douglas 1.2.840.114 [id number] 00:00:00 00:00:00 Outreach Hugh Tejeda Uli 350.1.13.10 [place] 4.2.7.2.686 [id number] 403 2020-11-22 2020-11-22 Nurse ALPHONSE Villareal 1.2.840.114 [id number] Univers 00:00:00 00:00:00 Triage Liane Ulloa LINK 350.1.13.10 i ty of HOSPITAL 4.2.7.2.686 You as [phone] [facility] 019 Branch 2020-11-22 2020-11-22 Nurse ALPHONSE Villareal 1.2.840.114 [id number] 00:00:00 00:00:00 Triage Liane Ulloa LINK 350.1.13.10 HOSPITAL 4.2.7.2.686 [id number] 2020-11-16 2020-11-16 Orders Doctor ALPHONSE 1.2.840.114 [id number] Univers 00:00:00 00:00:00 Only Unassigned, LINK 350.1.13.10 ity of [place] [facility] 4.2.7.2.686 You as [id number] [facility] 009 Branch 2020-11-16 2020-11-16 Orders Doctor CUNHA 1.2.840.114 [id number] 00:00:00 00:00:00 Only Unassigned, LINK 350.1.13.10 [place] [facility] 4.2.7.2.686 [id number] 009 2020-11-11 2020-11-11 Telephone Parks, [facility] 1.2.789.085 [id number] Univers 00:00:00 00:00:00 Derrick PRIMARY 350.1.13.10 it [place] [phone] Nm dical [address] 2020-11-11 2020-11-11 Telephone Parks, [facility] 1.2.806.505 [id number] 00:00:00 00:00:00 Derrick PRIMARY 350.1.13.10 CARE 4.2.7.2.686 PAVILLION [id number] 389 2020-11-10 2020-11-10 Transition Jatin Campbell 1.2.840.114 [id number] Univers 00:00:00 00:00:00 of Care Nathalia Mcanlly 350.1.13.10 it y of [place]2.7.2.[place] [id number] [facility] 403 Branch 2020-11-10 2020-11-10 Refill LaurieRUST 1.2.840.114 [id number] Univers 00:00:00 00:00:00 Haris PRIMARY 350.1.13.10 it y of [place] 4.2.[place] [id number] Nm dical 389 Branch 2020-11-10 2020-11-10 Transition Jatin Campbell 1.2.840.114 [id number] 00:00:00 00:00:00 of Care Nathalia Mcnally 350.1.13.10 [place] 4.2.7.2.686 [id number] 403 2020-11-10 2020-11-10 [facility]ill [facility] 1.2.840.114 [id number] 00:00:00 00:00:00 Haris PRIMARY 350.1.13.10 [place] CARE 4.2.7.2.686 [place] [id number] 389 2020-10-22 2020-11-09 [facility] Vonda Starks 1.2.840.1 [id number] Univers 06:28:00 18:56:00 Encounter Antonio Villa 350.1.13.10 ity [facility] 4.2.7 .2.686 David Ov[place] [phone] Medical Haris [place] 096 Branch 2020-08-02 2020-08-02 Letter Blanca CUNHA 1.2.840.114 [id number] Univers 00:00:00 00:00:00 (Out) , LINK 350.1.13.10 it y of [facility] 4.2.7.2.686 [facility] [id number] [facility] 043 Branch 2020-07-04 2020-07-04 Orders Doctor ALPHONSE 1.2.840.114 [id number] Univers 00:00:00 00:00:00 Only Unassigned, LINK 350.1.13.10 ity of [place] [facility] 4.2.7.2.686 You as [id number] [facility] 009 Branch 2020-05-03 2020-05-03 Emergency [facility] 1.2.840.114 [id number] Univers 14:26:00 16:25:00 Christa Isaac 350.1.13.10 ity of [place] 4.2.7.2.686 [facility] [phone] [facility] 084 Branch 2020-05-03 2020-05-03 Orders Doctor ALPHONSE 1.2.840.114 [id number] Univers 00:00:00 00:00:00 Only Unassigned, LINK 350.1.13.10 ity of [place] [facility] 4.2.7.2.686 You as [id number] [facility] 009 Branch 2020-05-03 2020-05-03 Patient Jatin Douglas 1.2.840.114 [id number] Univers 00:00:00 00:00:00 Outreach Hugh Mcnally 350.1.13.10 [place] [id number] [address] 2020-02-05 2020-02-05 Patient Trupti Ahn 1.2.840.114 [id number] Univers 00:00:00 00:00:00 Outreach E Mcnally 350.1.13.10 i ty [place]7.2.[place] [id number] [address] 2020-01-28 2020-01-28 Patient Trupti Ahn 1.2.840.114 [id number] Univers 00:00:00 00:00:00 Outreach E Mcnally 350.1.13.10 i ty of [place] 4[place]2.7.2.[place] [phone] [address] 2020-01-18 2020-01-18 Patient Jatin Douglas 1.2.840.114 [id number] Univers 00:00:00 00:00:00 Outreach Hugh W Mcnally 350.1.13.10 ity of [place].7.2.[place] [phone] [address] 2020-01-08 2020-01-08 Patient Jatin Douglas 1.2.840.114 [id number] Univers 00:00:00 00:00:00 Outreach Hugh W Mcnally 350.1.13.10 ity of [place].2.[place] [id number] [address] 2020-01-07 2020-01-07 Patient Trupti Ahnanders 1.2.840.114 [id number] Univers 00:00:00 00:00:00 Outreach E Mcnally 350.1.13.10 i ty of [place]2.7.2.[place] [id number] [address] 2019-12-22 2019-12-22 Patient Trupti Ahnanders 1.2.840.114 [id number] Univers 00:00:00 00:00:00 Outreach E Mcnally 350.1.13.10 i ty of [place]2.7.2.[place] [id number] [address] 2019-12-16 2019-12-16 Patient Trupti Ahnanders 1.2.840.114 [id number] Univers 00:00:00 00:00:00 Outreach E Mcnally 350.1.13.10 i ty of [place]2.7.2.[place] [id number] [address] 2019-12-11 2019-12-11 Patient Jatin Douglas 1.2.840.114 [id number] Univers 00:00:00 00:00:00 Outreach Hugh W Mcnally 350.1.13.10 ity of [place] 4[place]2.7.2.[place] [id number] [address] 2019-12-10 2019-12-10 Patient Jatin Douglas 1.2.840.114 [id number] Univers 00:00:00 00:00:00 Outreach Hugh W Mcnally 350.1.13.10 ity of [place] 4[place]2.7.2.[place] [id number] [address] 2019-12-03 2019-12-03 Patient Jatin Douglas 1.2.840.114 [id number] Univers 00:00:00 00:00:00 Outreach Hugh W Mcnally 350.1.13.10 ity of [place] 4[place]2.7.2.[place] [id number] [address] 2019-12-02 2019-12-02 Patient Trupti Ahn 1.2.840.114 [id number] Univers 00:00:00 00:00:00 Outreach E Mcnally 350.1.13.10 i ty of [place] 4[place]2.7.2.[place] [id number] [address] 2019-12-01 2019-12-01 Patient Jatin Douglas 1.2.840.114 [id number] Univers 00:00:00 00:00:00 Outreach Hugh W Mcnally 350.1.13.10 ity of [place]2.7.2.[place] [id number] [address] 2019-11-26 2019-11-26 Patient Jatin Douglas 1.2.840.114 [id number] Univers 00:00:00 00:00:00 Outreach Hugh W Mcnally 350.1.13.10 ity of [place]2.7.2.[place] [id number] [address] 2019-11-25 2019-11-25 Patient Trupti Ahn 1.2.840.114 [id number] Univers 16:38:53 16:38:57 Outreach E Mcnally 350.1.13.10 i ty of [place] 4[place]2.7.2.[place] [id number] [address] 2019-11-25 2019-11-25 Outpatient [facility] [id number] Univers 12:00:00 12:00:00 [id number] ity of [facility] 2019-11-20 2019-11-20 Patient Trupti Ahn 1.2.840.114 [id number] Univers 00:00:00 00:00:00 Outreach E Mcnally 350.1.13.10 i ty of [place] 4[place]2.7.2.[place] [id number] [address] 2019-11-16 2019-11-16 Orders Doctor ALPHONSE 1.2.840.114 [id number] Univers 00:00:00 00:00:00 Only Unassigned, LINK 350.1.13.10 ity of [place] [facility] 4.2.7.2.686 You as [phone] [address] 2019-11-11 2019-11-11 Patient Jatin Douglas 1.2.840.114 [id number] Univers 00:00:00 00:00:00 Outreach Hugh Tejeda Mcnally 350.1.13.10 ity of [place] 4[place]2.7.2.[place] [id number] [address] 2019-11-03 2019-11-03 Patient Trupti Ahn 1.2.840.114 [id number] Univers 00:00:00 00:00:00 Outreach E Mcnally 350.1.13.10 i ty of [place] 4[place]2.7.2.[place] [id number] [address] 2019-11-02 2019-11-02 Patient Trupti Ahn 1.2.840.114 [id number] Univers 00:00:00 00:00:00 Outreach E Mcnally 350.1.13.10 i ty of [place] 4.2.7.2.[place] [id number] [facility] [address] [place] 2019-10-30 2019-10-30 Patient Trupti Ahn 1.2.840.114 [id number] Univers 00:00:00 00:00:00 Outreach Vee Whitey 350.1.13.10 i ty of [place].2.7.2.[place] [phone] [facility] [address] [place] 2019-10-29 2019-10-29 Hospital Claus Kaycee 1.2.120.968 [id number] Univers 11:46:00 23:59:00 Encounter Segun Link 350.1.13.10 ity of [facility] 4.2.7.2.686 You as [id number] [facility] [address] [place] 2019-10-29 2019-10-29 Outpatient R [facility] [id number] Univers 12:30:00 12:30:00 [id number] ity [facility] 2019-10-29 2019-10-29 [facility] [id number] Univers 12:30:00 12:30:00 SEGUN ity of [facility] 2019-10-29 2019-10-29 Transition Keanu Navarreteanders 1.2.840.114 [id number] Univers 00:00:00 00:00:00 of Care Luciaernesto Mcnally 350.1.13.10 ity of [place] 4.2.7.2.[place] [id number] [facility] [address] [place] 2019-10-26 2019-10-28 Hospital Aisha Bah [facility] 1.2.840. 114 [id number] Univers 20:13:39 12:05:00 Encounter Faustino Mason 350.1.13.10 it[place] of [place].2.[place] [id number] [facility] [address] [place] 2019-10-28 2019-10-28 Telephone [facility] 1.2.302.542 [id number] Univers 00:00:00 00:00:00 Mara Isaac 350.1.13.10 [place] [facility] [phone] Nm dical nal 059 [facility] 2019-10-27 2019-10-27 Telephone [facility] [id number] [id number] Univers 00:00:00 00:00:00 Grzegorz Knapp [facility] 350.1.13.10 i ty of [place] 4.2.7.2.686 You as Professio [id number] Nm dical nal 044 [facility] 2019-10-19 2019-10-26 Telemedici [facility] 1.2.840.114 [id number] Univers 10:08:07 17:02:04 ne Visit Mara [place] 350.1.13.10 [place] Profess[place] [phone] Nm dical nal 059 [facility] 2019-10-26 2019-10-26 S[employer]age [employer] Trimmer Shaka, Adc Lab Main [facility] 1.2.8 40.114 [id number] Univers 14:57:39 15:12:39 Visit Mara Cross [place] 350.1.13.10 it[place].2.[place] Profess[place] [phone] [facility] 353 [facility] 2019-10-26 2019-10-26 Outpatient [facility] [id number] Univers 15:00:00 15:00:[id number] [facility] 2019-10-26 2019-10-26 Outpatient R [facility] [id number] Univers 11:15:00 11:15:00 MARA ity o f [facility] 2019-10-26 2019-10-26 Orders Doctor CUNHA 1.2.840.114 [id number] Univers 00:00:00 00:00:00 Only Unassigned, LINK 350.1.13.10 ity of [place] [facility] 4.2.7.2.686 You as [phone] [address] 2019-10-19 2019-10-19 Outpatient [facility] [id number] Univers 14:40:00 14:40:00 MARA [id number] ity o f [facility] 2019-10-19 2019-10-19 [facility] [id number] Univers 14:40:00 14:40:00 MARA urrutia o f [facility] 2019-10-19 2019-10-19 Telephone [facility] [id number] [id number] Univers 00:00:00 00:00:00 Mara Isaac 350.1.13.10 [place] [facility] [phone] Nm dical nal 0[address] [facility] 2019-10-12 2019-10-12 Hospital Renny Ashley 1.2.840.114 [id number] Univers 12:30:00 23:59:00 Encounter Segun Devlin 350.1 .13.10 ity of [facility] 4.2.7.2.686 You as [phone] [facility] [address] 2019-10-12 2019-10-12 Outpatient [facility] [id number] Univers 12:30:00 12:30:00 [id number] ity of [facility] 2019-10-12 2019-10-12 [facility] [id number] Univers 12:30:00 12:30:00 [facility] 2019-09-29 2019-10-01 Emergency Chong Brennan [facility] 1.2.840.1 14 [id number] Univers 16:30:29 18:09:00 Pritesh Sunshine [facility] 350.1.13.10 [place] [phone] [facility] 114 Branch (CLC) 2019-09-29 2019-10-01 Outpatient X BABA [facility] [id number] Univers 16:30:29 18:09:00 PRITESH urrutia o f [facility] 2019-09-29 2019-09-29 [facility] Igor Borrego [facility] 1.2.840.114 [id number] Univers 09:00:00 16:29:00 Encounter Marlin 350.1.13.10 [place] [phone] [facility] 807 Branch 2019-09-29 2019-09-29 Outpatient R IGOR BORREGO [facility] [id number] Univers 09:00:00 16:29:00 ity [facility] 2019-09-29 2019-09-[address] [facility] [id number] Univers 15:00:00 15:00:00 t; IGOR BORREGO M.D. Advanced ity of Arabella COSTA M.D. 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 2.840.114 [id number] Univers 12:30:00 23:59:00 Encounter Renny Ashley 350.1.13.10 ity [facility] 4.2.7.2.686 You as [phone] [facility] [address] [place] 2019-09-28 2019-09-28 Ancillary Room, Maureen-Occup [facility] Luda 1.2.840.114 [id number] Univers 16:08:34 16:38:34 Visit Renny Ashley 350.1.13.10 ity [facility] 4.2.7.2.686 You as [phone] [facility] [address] 2019-09-28 2019-09-28 Outpatient R [facility] [id number] -[id number] Univers 12:30:00 12:30:00 [id number] ity [facility] 2019-09-28 2019-09-28 [facility] [id number] Univers 12:30:00 12:30:00 [facility] 2019-09-22 2019-09-22 Ancillary Room, Maureen-Occup Therapy Tub L[place] ie 1.2.840.114 [id number] Univers 16:28:15 17:13:15 Visit Segun Devlin 350.1.1 3.10 ity of [facility] 4.2.7.2.686 You as [phone] [facility] [address] 2019-09-21 2019-09-21 Hospital Kaycee Devlin 1.2.890.722 [id number] Univers 12:30:00 23:59:00 Encounter Segun Maza 350.1.13.10 ity [facility] 4.2.7.2.686 You as [id number] [facility] [address] 2019-09-21 2019-09-21 Outpatient R [facility] [id number] -[id number] Univers 12:30:00 12:30:00 [id number] [facility] 2019-09-21 2019-09-21 [facility] [id number] Univers 12:30:00 12:30:00 [facility] 2019-09-21 2019-09-21 Outpatient [facility] [id number] Univers 08:45:00 08:45:00 [facility] 2019-09-18 2019-09-18 Emergency X DOYLE, [facility] ERT [id number] Univers 17:58:06 20:49:00 GISSELLE urrutia [facility] 2019-09-18 2019-09-18 Emergency [facility] 1.2.063.896 [id number] Univers 17:58:06 20:49:00 Gisselle Isaac 350.1.13.10 i ty [place] [id number] [facility] 0[address] 2019-09-12 2019-09-15 Inpatient X [facility]BU [facility] [id number] Univers 09:17:22 13:30:00 renan TROTTER [facility] 2019-09-12 2019-09-15 [facility] aSng Leal [facility] 1.2.840.1 14 [id number] Univers 09:17:22 13:30:00 Encounter Wayne Del Valle 350.1.13. 10 [place] [phone] [facility] 113 [address] (CLC) 2019-09-10 2019-09-10 Patient Trupti Ahn 1.2.840.114 [id number] Univers 00:00:00 00:00:00 Outreach E Mcnally 350.1.13.10 i ty of [place] [id number] [facility] [address] 2019-09-08 2019-09-08 Transition Jatin Navarrete 1.2.840.114 [id number] Univers 00:00:00 00:00:00 of Care Lucia Whitey 350.1.13.10 it[place] of [place] [id number] [facility] [address] 2019-08-18 2019-09-07 Inpatient X [facility] [id number] Univers 14:20:52 14:10:00 RADHESHYAM ity [facility] 2019-08-18 2019-09-07 [facility] 1.2.840.1 14 [id number] Univers 14:20:52 14:10:00 Encounter Harris Garza [facility] 350.1.13.10 ity of [facility] [place] 4.2.7.2.686 [place] Mario Lewis [place] [phone] [facility] 115 Branch ([facility]) Results Test Description Test Time Test Comments Results Result Comments Source POCT GLUCOSE (AUTOMATED) 2020-11-09 16:51:02 Test Item Value Reference Range Interpretation Comme nts POCT GLU (test code = 7082378955) 177 mg/dL 70-110 H Lab Interpretation (test code = 02272-2) [facility]normal [facility]2020-[facility]09 16:51:02 Test Item Value Reference Range Interpretation Comments POCT GLU (test code = 7327767975) 177 mg/dL 70-110 H Lab Interpretation (test code = Abnormal 06347-0) [facility] [id number] 12:33:06 Test Item Value Reference Range Interpretation Comments WBC (test code = 6690-2) See_Comment [A utomated message] The system [employer] generated this result transmit tennille reference range : 4.20 - 10.70 10*3/?L. The reference range was not used to interpret this result as normal/abnormal . RBC (test code = 789-8) See_Comment L [Au tomated message] The system [employer] generated this result transmit tennille reference range [...] 777-3) See_Comment [Au tomated message] The system [employer] generated this result transmit tennille reference range : 150 - 328 10*3/?L. The reference range was not used to interpret this result as normal/abnormal . MPV (test code = 12.5 fL 9.8-13.0 87665-1) RDW-CV (test code = 22.8 % 12.1-15.4 H 788-0) RDW-SD (test code = 64.1 fL 38.5-51.6 H 42063-1) NRBC x10^3 (test code = <0.01 See_Comment [Au tomated message] 2065138222) The system [employer] generated this result transmit tennille reference range : 10*3/?L. The reference range was not used to interpret this result as normal/abnormal . NRBC/100 WBC (test code See_Comment [Au tomated message] = 9081556824) The system [facility] generated this result transmit tennille reference range : 0.0 - 10.0 /100 WBC s. The reference r christine was not used to interpret this result as normal/abnormal . IPF % (test code = 9786119391) Lab Interpretation (test Abnormal code = 95367-6) [facility] WITHOUT [id number] 12:33:06 Test Item Value Reference Range Interpretation Comments WBC (test code = 6690-2) See_Comment [A utomated message] The system [employer] generated this result transmit tennille reference range : 4.20 - 10.70 10*3/?L. The reference range was not used to interpret this result as normal/abnormal . RBC (test code = 789-8) See_Comment L [Au tomated message] The system [employer] generated this result transmit tennille reference range [...] 777-3) See_Comment [Au tomated message] The system [employer] generated this result transmit tennille reference range : 150 - 328 10*3/?L. The reference range was not used to interpret this result as normal/abnormal . MPV (test code = 12.5 fL 9.8-13.0 00877-9) RDW-CV (test code = 22.8 % 12.1-15.4 H 788-0) RDW-SD (test code = 64.1 fL 38.5-51.6 H 79503-9) NRBC x10^3 (test code = <0.01 See_Comment [Au tomated message] 2015791618) The system [employer] generated this result transmit tennille reference range : 10*3/?L. The reference range was not used to interpret this result as normal/abnormal . NRBC/100 WBC (test code See_Comment [Au tomated message] = 2523570410) The system [employer] generated this result transmit tennille reference range : 0.0 - 10.0 /100 WBC s. The reference r christine was not used to interpret this result as normal/abnormal . IPF % (test code = 7177314629) Lab Interpretation (test Abnormal code = 85649-5) [facility]28 12:23:25 Test Item Value Reference Range Interpretation Comments MAGNESIUM (test code = 8808886995) 2.7 mg/dL 1.7-2.4 H Lab Interpretation (test code = Abnormal 99863-8) [facility] METABOLIC PANEL (NA, K, CL, CO2, GLUCOSE, BUN, CREATININE, CA)2020-11-09 12:23:25 Test Item Value Reference Range Interpretation Comments NA (test code = 146 mmol/L 135-145 H 6664076115) K (test code = 4.0 mmol/L 3.5-5.0 7902161243) CL (test code = 110 mmol/L 98-108 H 1882949708) CO2 TOTAL (test code = 31 mmol/L 23-31 4598519003) AGAP (test code = 2-16 0757830134) BUN (test code = 49 mg/dL 7-23 H 5463395479) GLUCOSE (test code = 114 mg/dL 70-110 H 1144200821) CREATININE (test code = 1.23 mg/dL 0.60-1.25 5560261355) CALCIUM (test code = 7.8 mg/dL 8.6-10.6 L 3845865920) eGFR (test code = mL/min/1.73m2 1218920894) JUAN LUIS (test code = JUAN LUIS) [...] tests). Lab Interpretation Abnormal (test code = 19324-3) [facility] METABOLIC PANEL (NA, K, CL, CO2, GLUCOSE, BUN, CREATININE, CA)2020-11-09 12:23:25 Test Item Value Reference Range Interpretation Comments NA (test code = 146 mmol/L 135-145 H 9533083231) K (test code = 4.0 mmol/L 3.5-5.0 5815324127) CL (test code = 110 mmol/L 98-108 H 2368565522) CO2 TOTAL (test code = 31 mmol/L 23-31 8559207485) AGAP (test code = 2-16 2890155070) BUN (test code = 49 mg/dL 7-23 H 7068228312) GLUCOSE (test code = 114 mg/dL 70-110 H 6355388603) CREATININE (test code = 1.23 mg/dL 0.60-1.25 6258198841) CALCIUM (test code = 7.8 mg/dL 8.6-10.6 L 8090696780) eGFR (test code = mL/min/1.73m2 4803890643) JUAN LUIS (test code = JUAN LUIS) [...] tests). Lab Interpretation Abnormal (test code = 78320-9) [facility] 12[facility]25 Test Item Value Reference Range Interpretation Comments MAGNESIUM (test code = 6125929658) 2.7 mg/dL 1.7-2.4 H Lab Interpretation (test code = Abnormal 55221-7) [facility] GLUCOSE (AUTOMATED)2020-11-09 10:56:45 Test Item Value Reference Range Interpretation Comments POCT GLU (test code = 5220457815) 129 mg/dL 70-110 H Lab Interpretation (test code = Abnormal 57761-8) [facility] GLUCOSE (AUTOMATED)2020-11-09 05:24:07 Test Item Value Reference Range Interpretation Comments POCT GLU (test code = 5593821600) 203 mg/dL 70-110 H Lab Interpretation (test code = Abnormal 10904-6) [facility] GLUCOSE (AUTOMATED)2020-11-08 23:23:05 Test Item Value Reference Range Interpretation Comments POCT GLU (test code = 9203740091) 238 mg/dL 70-110 H Lab Interpretation (test code = Abnormal 28611-5) [facility] GLUCOSE (AUTOMATED)2020-11-08 15:48:22 Test Item Value Reference Range Interpretation Comments POCT GLU (test code = 7707472782) 193 mg/dL 70-110 H Lab Interpretation (test code = Abnormal 51633-2) [facility] W [id number] 14:45:56 1. ?Multifocal mixed attenuation opacities and [...] TECHNIQUE: CT examination acquisition dated 10/22/2020 from [facility], labeled with the patients name, was submitted [...] 09/20/2017TECHNIQUE: CT examination acquisition dated 10/22/2020 from [facility], labeled with the patients name, was submitted [...] reviewed this study and agree with the abovereport.[facility] TH[facility] W [id number] 14:45:56 1. ?Multifocal mixed attenuation opacities and [...] TECHNIQUE: CT examination acquisition dated 10/22/2020 from [facility], labeled with the patients name, was submitted [...] of a left total hip arthroplasty. [facility], Radiant Results Inft User - 11/08/2020 9:47 AM CDTEXAM: CT CHEST, ABDOMEN AND PELVIS WITHOUT CONTRAST, CONSULTATION OUTSIDEHISTORY: 65 years -old Male with uti - shock COMPARISON: None, correlation with CT abdomen pelvis with and withoutcontrast from 09/20/2017TECHNIQUE: CT examination acquisition dated 10/22/2020 from [facility], labeled with the patients name, was submitted [...] reviewed this study and agree with the abovereport.[facility] GLU[facility] (AUTOMATED)2020-11-08 11:15:50 Test Item Value Reference Range Interpretation Comments POCT GLU (test code = 9697277846) 126 mg/dL 70-110 H Lab Interpretation (test code = Abnormal 46575-0) [facility] METABOLIC PANEL (NA, K, CL, CO2, GLUCOSE, BUN, CREATININE, CA)2020-11-08 10:22:09 Test Item Value Reference Range Interpretation Comments NA (test code = 147 mmol/L 135-145 H 9382570820) K (test code = 4.1 mmol/L 3.5-5.0 1825375153) CL (test code = 113 mmol/L 98-108 H 9132527331) CO2 TOTAL (test code = 30 mmol/L 23-31 9171184858) AGAP (test code = 2-16 4682366469) BUN (test code = 43 mg/dL 7-23 H 4148327608) GLUCOSE (test code = 113 mg/dL 70-110 H 7206609430) CREATININE (test code = 1.17 mg/dL 0.60-1.25 7151075609) CALCIUM (test code = 7.6 mg/dL 8.6-10.6 L 5772009957) eGFR (test code = mL/min/1.73m2 0078623615) JUAN LUIS (test code = JUAN LUIS) [...] tests). Lab Interpretation Abnormal (test code = 57177-8) [facility] WITH [id number] 10:16:46 Test Item Value Reference Range Interpretation [...] (test code = 65.6 fL 38.5-51.6 H 49520-3) RDW-CV (test code = 23.0 % 12.1-15.4 H 788-0) PLT (test code = See_Comment [Automated 777-3) message] The sy stem which generated this result transmitted reference range : 150 - 328 10*3/ ?L. The reference r christine was not used to interpret this result as normal/abnormal . MPV (test code = 13.3 fL 9.8-13.0 H 20254-7) NRBC/100 WBC (test See_Comment [Automat ed code = 4779966588) message] The system which generated this result transmitted reference range : 0.0 - 10.0 /100 WBCs. The refer ence range was not u sed to interpret th is result as normal/abnormal . NRBC x10^3 (test code <0.01 See_Comment [Auto mated = 2716990007) message] The s ystem which generated this result transmitted reference range : 10*3/?L. The reference range was not used to interpret this result as normal/abnormal . GRAN MAT (NEUT) % 71.8 % (test code = 770-8) IMM GRAN % (test code 0.30 % = 9880972874) LYMPH % (test code = 17.7 % 736-9) MONO % (test code = 7.2 % 5905-5) EOS % (test code = 2.5 % 713-8) BASO % (test code = 0.5 % 706-2) GRAN MAT x10^3(ANC) 4.57 10*3/uL 1.99-6.95 (test code = 5472764605) IMM GRAN x10^3 (test <0.03 0.00-0.06 code = 9602413275) LYMPH x10^3 (test code 1.13 10*3/uL 1.09-3.23 = 731-0) MONO x10^3 (test code 0.46 10*3/uL 0.36-1.02 = 742-7) EOS x10^3 (test code = 0.16 10*3/uL 0.06-0.53 711-2) BASO x10^3 (test code 0.03 10*3/uL 0.01-0.09 = 704-7) Lab Interpretation Abnormal (test code = 60073-1) [facility] WITH [id number] 10:16:46 Test Item Value Reference Range Interpretation [...] (test code = 65.6 fL 38.5-51.6 H 74342-2) RDW-CV (test code = 23.0 % 12.1-15.4 H 788-0) PLT (test code = See_Comment [Automated 777-3) message] The sy stem which generated this result transmitted reference range : 150 - 328 10*3/ ?L. The reference r christine was not used to interpret this result as normal/abnormal . MPV (test code = 13.3 fL 9.8-13.0 H 17269-4) NRBC/100 WBC (test See_Comment [Automat ed code = 3029929227) message] The system which generated this result transmitted reference range : 0.0 - 10.0 /100 WBCs. The refer ence range was not u sed to interpret th is result as normal/abnormal . NRBC x10^3 (test code <0.01 See_Comment [Auto mated = 0465269936) message] The s ystem which generated this result transmitted reference range : 10*3/?L. The reference range was not used to interpret this result as normal/abnormal . GRAN MAT (NEUT) % 71.8 % (test code = 770-8) IMM GRAN % (test code 0.30 % = 4691101298) LYMPH % (test code = 17.7 % 736-9) MONO % (test code = 7.2 % 5905-5) EOS % (test code = 2.5 % 713-8) BASO % (test code = 0.5 % 706-2) GRAN MAT x10^3(ANC) 4.57 10*3/uL 1.99-6.95 (test code = 6840550336) IMM GRAN x10^3 (test <0.03 0.00-0.06 code = 4608161351) LYMPH x10^3 (test code 1.13 10*3/uL 1.09-3.23 = 731-0) MONO x10^3 (test code 0.46 10*3/uL 0.36-1.02 = 742-7) EOS x10^3 (test code = 0.16 10*3/uL 0.06-0.53 711-2) BASO x10^3 (test code 0.03 10*3/uL 0.01-0.09 = 704-7) Lab Interpretation Abnormal (test code = 16817-3) [facility] GLUCOSE (AUTOMATED)2020-11-08 05:43:41 Test Item Value Reference Range Interpretation Comments POCT GLU (test code = 9955276622) 123 mg/dL 70-110 H Lab Interpretation (test code = Abnormal 88415-4) [facility] GLUCOSE (AUTOMATED)2020-11-07 22:02:56 Test Item Value Reference Range Interpretation Comments POCT GLU (test code = 3643268607) 120 mg/dL 70-110 H Lab Interpretation (test code = Abnormal 05110-9) [facility] [id number] 15:30:56 Nonobstructive bowel gas pattern. Mild stool [...] this study and agree with theabove report. [facility] CHEST 1 [id number] 14:18:52EXAM: XR CHEST 1 VW HISTORY: fever [...] skin folds on the right obscure the lungbases.[facility] CHEST 1 [id number] 14:18:52 EXAM: XR CHEST 1 VW HISTORY: [...] skin folds on the right obscure the lungbases.[facility] GLU[facility] ([facility]OMATED) 2020-11-07 13:14:41 Test Item Value Reference Range Interpretation Comments POCT GLU (test code = 1214067347) 88 mg/dL 70-110 Lab Interpretation (test code = Normal 15714-9) [facility]OLIC PANEL (NA, K, CL, CO2, GLUCOSE, BUN, CREATININE, CA)2020-11-07 10:43:49 Test Item Value Reference Range Interpretation Comments NA (test code = 148 mmol/L 135-145 H 3231534537) K (test code = 4.1 mmol/L 3.5-5.0 9156698057) CL (test code = 113 mmol/L 98-108 H 9243788984) CO2 TOTAL (test code = 35 mmol/L 23-31 H 1934190760) AGAP (test code = <1 2-16 L 6797490348) BUN (test code = 45 mg/dL 7-23 H 5008627689) GLUCOSE (test code = 63 mg/dL 70-110 L 8571405777) CREATININE (test code = 1.33 mg/dL 0.60-1.25 H 2649125475) CALCIUM (test code = 8.0 mg/dL 8.6-10.6 L 9603593803) eGFR (test code = mL/min/1.73m2 9965128670) JUAN LUIS (test code = JUAN LUIS) [...] tests). Lab Interpretation Abnormal (test code = 26208-2) [facility]2021-[facility]-26 10:42:07 Test Item Value Reference Range Interpretation Comments MAGNESIUM (test code = 3297410458) 2.7 mg/dL 1.7-2.4 H Lab Interpretation (test code = Abnormal 98670-4) [facility]2020-11-07 10:27:42 Test Item Value Reference Range Interpretation Comments POCT GLU (test code = 9841113831) 80 mg/dL 70-110 Lab Interpretation (test code = Normal 04377-4) [facility] WITHOUT [id number] 10:22:42 Test Item Value Reference Range Interpretation Comments WBC (test code = 6690-2) See_Comment [A utomated message] The system [employer] generated this result transmit tennille reference range : 4.20 - 10.70 10*3/?L. The reference range was not used to interpret this result as normal/abnormal . RBC (test code = 789-8) See_Comment L [Au tomated message] The system [employer] generated this result transmit tennille reference range [...] 777-3) See_Comment [Au tomated message] The system [employer] generated this result transmit tennille reference range : 150 - 328 10*3/?L. The reference range was not used to interpret this result as normal/abnormal . MPV (test code = 12.7 fL 9.8-13.0 89731-3) RDW-CV (test code = 23.8 % 12.1-15.4 H 788-0) RDW-SD (test code = 65.6 fL 38.5-51.6 H 64267-5) NRBC x10^3 (test code = <0.01 See_Comment [Au tomated message] 1745496007) The system [employer] generated this result transmit tennille reference range : 10*3/?L. The reference range was not used to interpret this result as normal/abnormal . NRBC/100 WBC (test code See_Comment [Au tomated message] = 3176725779) The system [employer] generated this result transmit tennille reference range : 0.0 - 10.0 /100 WBC s. The reference r christine was not used to interpret this result as normal/abnormal . IPF % (test code = 2281940880) Lab Interpretation (test Abnormal code = 84963-1) [facility] GLUCOSE (AUTOMATED)2020-11-07 05:14:24 Test Item Value Reference Range Interpretation Comments POCT GLU (test code = 6714805746) 87 mg/dL 70-110 Lab Interpretation (test code = Normal 16163-3) [facility] GLUCOSE (AUTOMATED)2020-11-06 22:50:06 Test Item Value Reference Range Interpretation Comments POCT GLU (test code = 3619054112) 80 mg/dL 70-110 Lab Interpretation (test code = Normal 41016-9) [facility] GLUCOSE (AUTOMATED)2020-11-06 16:50:42 Test Item Value Reference Range Interpretation Comments POCT GLU (test code = 0804538477) 146 mg/dL 70-110 H Lab Interpretation (test code = Abnormal 78119-4) [facility] GLUCOSE (AUTOMATED)2020-11-06 16:50:42 Test Item Value Reference Range Interpretation Comments POCT GLU (test code = 3825216422) 146 mg/dL 70-110 H Lab Interpretation (test code = Abnormal 72351-8) [facility] [id number] 12:14:44 Test Item Value Reference Range Interpretation Comments URINE CULTURE (test No aerobic growth (< code = 630-4) 1000 CFU/mL) [facility] [id number] 12:14:44 Test Item Value Reference Range Interpretation Comments URINE CULTURE (test No aerobic growth (< code = 630-4) 1000 CFU/mL) [facility] [id number] 12:14:44 Test Item Value Reference Range Interpretation Comments URINE CULTURE (test No aerobic growth (< code = 630-4) 1000 CFU/mL) [facility]2021-[facility]-25 11:42:12 Test Item Value Reference Range Interpretation Comments MAGNESIUM (test code = 9370583636) 2.6 mg/dL 1.7-2.4 H Lab Interpretation (test code = Abnormal 08670-4) [facility] (NA, K, CL, CO2, GLUCOSE, BUN, CREATININE, CA)2020-11-06 11:42:12 Test Item Value Reference Range Interpretation Comments NA (test code = 146 mmol/L 135-145 H 2087388626) K (test code = 4.0 mmol/L 3.5-5.0 3904751133) CL (test code = 112 mmol/L 98-108 H 4696889957) CO2 TOTAL (test code = 32 mmol/L 23-31 H 1731242301) AGAP (test code = 2-16 4912292583) BUN (test code = 47 mg/dL 7-23 H 0621592914) GLUCOSE (test code = 176 mg/dL 70-110 H 4063918465) CREATININE (test code = 1.33 mg/dL 0.60-1.25 H 8251240652) CALCIUM (test code = 7.9 mg/dL 8.6-10.6 L 7270866220) eGFR (test code = mL/min/1.73m2 5830486528) JUAN LUIS (test code = JUAN LUIS) [...] tests). Lab Interpretation Abnormal (test code = 57327-5) [facility] METABOLIC PANEL (NA, K, CL, CO2, GLUCOSE, BUN, CREATININE, CA)2020-11-06 11:42:12 Test Item Value Reference Range Interpretation Comments NA (test code = 146 mmol/L 135-145 H 5314736077) K (test code = 4.0 mmol/L 3.5-5.0 1754229184) CL (test code = 112 mmol/L 98-108 H [id number]) CO2 TOTAL (test code = 32 mmol/L 23-31 H 1315352428) AGAP (test code = 2-16 3364622443) BUN (test code = 47 mg/dL 7-23 H 8174804294) GLUCOSE (test code = 176 mg/dL 70-110 H 2193388312) CREATININE (test code = 1.33 mg/dL 0.60-1.25 H 5354778785) CALCIUM (test code = 7.9 mg/dL 8.6-10.6 L 1978908619) eGFR (test code = mL/min/1.73m2 9824199709) JUAN LUIS (test code = JUAN LUIS) [...] tests). Lab Interpretation Abnormal (test code = 61785-0) [facility]12 Test Item Value Reference Range Interpretation Comments MAGNESIUM (test code = 3366022100) 2.6 mg/dL 1.7-2.4 H Lab Interpretation (test code = Abnormal 82400-6) [facility] WITHOUT [id number] 11:35:08 Test Item Value Reference Range Interpretation Comments WBC (test code = 6690-2) See_Comment [A utomated message] The system [employer] generated this result transmit tennille reference range : 4.20 - 10.70 10*3/?L. The reference range was not used to interpret this result as normal/abnormal . RBC (test code = 789-8) See_Comment L [Au tomated message] The system [employer] generated this result transmit tennille reference range [...] 777-3) See_Comment [Au tomated message] The system [employer] generated this result transmit tennille reference range : 150 - 328 10*3/?L. The reference range was not used to interpret this result as normal/abnormal . MPV (test code = 13.6 fL 9.8-13.0 H 08342-1) RDW-CV (test code = 23.8 % 12.1-15.4 H 788-0) RDW-SD (test code = 66.0 fL 38.5-51.6 H 58573-5) NRBC x10^3 (test code = <0.01 See_Comment [Au tomated message] 6091910294) The system [employer] generated this result transmit tennille reference range : 10*3/?L. The reference range was not used to interpret this result as normal/abnormal . NRBC/100 WBC (test code See_Comment [Au tomated message] = 1155183587) The system [employer] generated this result transmit tennille reference range : 0.0 - 10.0 /100 WBC s. The reference r christine was not used to interpret this result as normal/abnormal . IPF % (test code = 3378819841) Lab Interpretation (test Abnormal code = 82161-5) [facility] WITHOUT [id number] 11:35:08 Test Item Value Reference Range Interpretation Comments WBC (test code = 6690-2) See_Comment [A utomated message] The system [employer] generated this result transmit tennille reference range : 4.20 - 10.70 10*3/?L. The reference range was not used to interpret this result as normal/abnormal . RBC (test code = 789-8) See_Comment L [Au tomated message] The system [employer] generated this result transmit tennille reference range [...] 777-3) See_Comment [Au tomated message] The system [employer] generated this result transmit tennille reference range : 150 - 328 10*3/?L. The reference range was not used to interpret this result as normal/abnormal . MPV (test code = 13.6 fL 9.8-13.0 H 69904-8) RDW-CV (test code = 23.8 % 12.1-15.4 H 788-0) RDW-SD (test code = 66.0 fL 38.5-51.6 H 89943-4) NRBC x10^3 (test code = <0.01 See_Comment [Au tomated message] 7440108602) The system [employer] generated this result transmit tennille reference range : 10*3/?L. The reference range was not used to interpret this result as normal/abnormal . NRBC/100 WBC (test code See_Comment [Au tomated message] = 8239717221) The system [employer] generated this result transmit tennille reference range : 0.0 - 10.0 /100 WBC s. The reference r christine was not used to interpret this result as normal/abnormal . IPF % (test code = 6963610033) Lab Interpretation (test Abnormal code = 95385-6) [facility] 11:12:42 Test Item Value Reference Range Interpretation Comments POCT GLU (test code = 4365933996) 206 mg/dL 70-110 H Lab Interpretation (test code = Abnormal 81579-3) [facility], [id number] 07:41:26 Test Item Value Reference Range Interpretation Comments VIT B6 (test code = 10 nmol/L 20.0-125.0 L INTERPRE TIVE 82662-9) INFORMATION: Vi tamin B6 (Pyridoxal 5-Phosphate) Py ridoxal 5'-phosphate me asured in a specimen collected follo wing an 8-hour or overn ight fast accurately indicates vitam in B6 nutritional sta tus. Non-fasting spe cimen concentration r eflects recent vitamin intake. This test was developed and i ts performance characteristics determined by [facility]. I t has not been cleare d or approved by the [place] Food and Drug Administration. This test was perfor med in a CLIA certifie d laboratory and is intended for cl inical purposes.Perfor med By: [facility] [address] [place], [place] [address]Goilosrure Director: Dori Crum MD Lab Interpretation Abnormal (test code = 22593-6) [facility], [id number] 07:41:26 Test Item Value Reference Range Interpretation Comments VIT B6 (test code = 10 nmol/L 20.0-125.0 L INTERPRE TIVE 70472-5) INFORMATION: Vi tamin B6 (Pyridoxal 5-Phosphate) Py ridoxal 5'-phosphate me asured in a specimen collected follo wing an 8-hour or overn ight fast accurately indicates vitam in B6 nutritional sta tus. Non-fasting spe cimen concentration r eflects recent vitamin intake. This test was developed and i ts performance characteristics determined by [facility]. I t has not been cleare d or approved by the [place] Food and Drug Administration. This test was perfor med in a CLIA certifie d laboratory and is intended for cl inical purposes.Perfor med By: [facility] [employer] [address] [address]Mzdhhkhlwm Director: Dori Crum MD Lab Interpretation Abnormal (test code = 01068-9) [facility], [id number] 07:41:26 Test Item Value Reference Range Interpretation Comments VIT B6 (test code = 10 nmol/L 20.0-125.0 L INTERPRE TIVE 66374-1) INFORMATION: Vi tamin B6 (Pyridoxal 5-Phosphate) Py ridoxal 5'-phosphate me asured in a specimen collected follo wing an 8-hour or overn ight fast accurately indicates vitam in B6 nutritional sta tus. Non-fasting spe cimen concentration r eflects recent vitamin intake. This test was developed and i ts performance characteristics determined by [facility]. I t has not been cleare d or approved by the [place] Food and Drug Administration. This test was perfor med in a CLIA certifie d laboratory and is intended for cl inical purposes.Perfor med By: [facility] [employer] [address] [address]Yccaptwaur Director: Dori Crum MD Lab Interpretation Abnormal (test code = 94010-3) [facility]2020-11-06 05:08:09 Test Item Value Reference Range Interpretation Comments POCT GLU (test code = 4863150119) 175 mg/dL 70-110 H Lab Interpretation (test code = Abnormal 99273-4) [facility]1 (THIAMINE), WHOLE [id number] 00:12:20 Test Item Value Reference Range Interpretation Comments Vitamin B1, Whole 104 nmol/L 70-180 INTERPRETI VE INFORMATION: Blood (test code = Vitamin B 1, Whole Blood 02843-0) This assay gal ures the concentration o [...] is intended for clinical purposes.Perfor med By: [place] [id number] aboratory Director: Dori Crum MD [facility] (THIAMINE), WHOLE [id number] 00:12:20 Test Item Value Reference Range Interpretation Comments Vitamin B1, Whole 104 nmol/L 70-180 INTERPRETI VE INFORMATION: Blood (test code = Vitamin B 1, Whole Blood 89352-7) This assay gal ures the concentration o [...] is intended for clinical purposes.Perfor med By: [address] [address]Y aboratory Director: Dori Crum MD [facility] (THIAMINE), WHOLE [id number] 00:12:20 Test Item Value Reference Range Interpretation Comments Vitamin B1, Whole 104 nmol/L 70-180 INTERPRETI VE INFORMATION: Blood (test code = Vitamin B 1, Whole Blood 43264-0) This assay gal ures the concentration o [...] clinical purposes.Perfor med By: [facility] [address] [place], [place] [address]U aboratory Director: Dori Crum MD [facility] GLUCOSE (AUTOMATED)2020-11-05 18:42:54 Test Item Value Reference Range Interpretation Comments POCT GLU (test code = 5928394246) 139 mg/dL 70-110 H Lab Interpretation (test code = Abnormal 07836-4) [facility] [id number] 12:13:36 Test Item Value Reference Range Interpretation Comments CSF CULTURE (test No organisms isolated code = 606-4) Gram stain (test code Occasional (Rare) = 664-3) Mononuclear cells [facility] [id number] 12:13:36 Test Item Value Reference Range Interpretation Comments CSF CULTURE (test No organisms isolated code = 606-4) Gram stain (test code Occasional (Rare) = 664-3) Mononuclear cells [facility] [id number] 12:13:36 Test Item Value Reference Range Interpretation Comments CSF CULTURE (test No organisms isolated code = 606-4) Gram stain (test code Occasional (Rare) = 664-3) Mononuclear cells [facility] GLUCOSE (AUTOMATED)2020-11-05 11:19:24 Test Item Value Reference Range Interpretation Comments POCT GLU (test code = 1075538509) 186 mg/dL 70-110 H Lab Interpretation (test code = Abnormal 56247-9) [facility] METABOLIC PANEL (NA, K, CL, CO2, GLUCOSE, BUN, CREATININE, CA)2020-11-05 10:23:43 Test Item Value Reference Range Interpretation Comments NA (test code = 147 mmol/L 135-145 H 6387906652) K (test code = 3.9 mmol/L 3.5-5.0 0316629820) CL (test code = 115 mmol/L 98-108 H 7034546138) CO2 TOTAL (test code = 29 mmol/L 23-31 5488851451) AGAP (test code = 2-16 0629410980) BUN (test code = 47 mg/dL 7-23 H 1924286557) GLUCOSE (test code = 157 mg/dL 70-110 H 6396619041) CREATININE (test code = 1.35 mg/dL 0.60-1.25 H 8531068858) CALCIUM (test code = 8.0 mg/dL 8.6-10.6 L 0142829459) eGFR (test code = mL/min/1.73m2 2772883197) JUAN LUIS (test code = JUAN LUIS) [...] tests). Lab Interpretation Abnormal (test code = 05178-7) [facility] 10:23:43 Test Item Value Reference Range Interpretation Comments MAGNESIUM (test code = 6912526643) 2.7 mg/dL 1.7-2.4 H Lab Interpretation (test code = Abnormal 26154-7) [facility] WITHOUT [id number] 09:54:56 Test Item Value Reference Range Interpretation Comments WBC (test code = 6690-2) See_Comment H [A utomated message] The system [facility] generated this result transmit tennille reference range : 4.20 - 10.70 10*3/?L. The reference range was not used to interpret this result as normal/abnormal . RBC (test code = 789-8) See_Comment L [Au tomated message] The system [facility] generated this result transmit tennille [...] [Au tomated message] The system [facility] generated this result transmit tennille reference range : 150 - 328 10*3/?L. The reference range was not used to interpret this result as normal/abnormal . MPV (test code = 12.5 fL 9.8-13.0 63926-7) RDW-CV (test code = 23.9 % 12.1-15.4 H 788-0) RDW-SD (test code = 66.3 fL 38.5-51.6 H 61165-3) NRBC x10^3 (test code = <0.01 See_Comment [Au tomated message] 3388624346) The system [facility] generated this result transmit tennille reference range : 10*3/?L. The reference range was not used to interpret this result as normal/abnormal . NRBC/100 WBC (test code See_Comment [Au tomated message] = 6743125614) The system [facility] generated this result transmit tennille reference range : 0.0 - 10.0 /100 WBC s. The reference r christine was not used to interpret this result as normal/abnormal . IPF % (test code = 6636608204) Lab Interpretation (test Abnormal code = 87569-1) [facility]2020-11-05 04:55:22 Test Item Value Reference Range Interpretation Comments POCT GLU (test code = 5292505287) 112 mg/dL 70-110 H Lab Interpretation (test code = Abnormal 63288-4) [facility]Allen[facility]YROID PEROXIDASE (TPO) [id number] 23:58:26 Test Item Value Reference Interpretation Comments Range TPO Ab IgG (test See_Comment [Automated code = 4984645055) message] The system which generated this result [...] Graves'disease. Lab Interpretation Normal (test code = 61304-7) [facility] (TPO) [id number] 23:58:26 Test Item Value Reference Interpretation Comments Range TPO Ab IgG (test See_Comment [Automated code = 0464810396) message] The system which generated this result [...] Graves'disease. Lab Interpretation Normal (test code = 47896-3) [facility] (TPO) [id number] 23:58:26 Test Item Value Reference Interpretation Comments Range TPO Ab IgG (test See_Comment [Automated code = 3920993064) message] The system which generated this result [...] Graves'disease. Lab Interpretation Normal (test code = 63334-5) [facility]2020-11-04 22:59:44 Test Item Value Reference Range Interpretation Comments POCT GLU (test code = 7619680607) 89 mg/dL 70-110 Lab Interpretation (test code = Normal 73174-8) [facility] [id number] 22:07:20 The contrast material is identified in [...] have reviewed thisstudy and agree withthe above report.[facility] [id number] 22:07:20 The contrast material is identified in [...] have reviewed thisstudy and agree withthe above report.[facility] [id number] 22:07:20 The contrast material is identified in [...] at the midpelvis.Preliminary Report Dictated by Resident: Emelia Ly, Milton Constantino MD., have reviewed thisstudy and agree withthe above report.[facility])2020-11-04 16:52:36 Test Item Value Reference Range Interpretation Comments POCT GLU (test code = 6155365401) 134 mg/dL 70-110 H Lab Interpretation (test code = Abnormal 70668-5) [facility]AllenPROTHROMBIN [facility] / [id number] 16:29:11 Test Item Value Reference Range Interpretation Comments PROTIME PATIENT (test See_Comment H [Auto mated message] code = 5964-2) The system [employer] generated this result transmitted ref erence range: 10.1 - 1 2.6 Seconds. The reference range was not used to int erpret this result as normal/abnormal . INR (test code = 6301-6) Nor mal INR <1.1; Warfarin Therap eutic range 2.0 to 3. 0 or 2.5 to 3.5, dep ending upon the indica tions. Lab Interpretation (test Abnormal code = 93513-5) [facility]AllenPROTHROMBIN [facility] / [id number] 16:29:11 Test Item Value Reference Range Interpretation Comments PROTIME PATIENT (test See_Comment H [Auto mated message] code = 5964-2) The system [employer] generated this result transmitted ref erence range: 10.1 - 1 2.6 Seconds. The reference range was not used to int erpret this result as normal/abnormal . INR (test code = 6301-6) Nor mal INR <1.1; Warfarin Therap eutic range 2.0 to 3. 0 or 2.5 to 3.5, dep ending upon the indica tions. Lab Interpretation (test Abnormal code = 54522-8) [facility] / [id number] 16:29:11 Test Item Value Reference Range Interpretation [...] tions. Lab Interpretation (test Abnormal code = 96804-0) [facility]2020-11-04 15:23:28 Test Item Value Reference Range Interpretation Comments POCT GLU (test code = 4478451811) 144 mg/dL 70-110 H Lab Interpretation (test code = Abnormal 03406-5) [facility] METABOLIC PANEL (NA, K, CL, CO2, GLUCOSE, BUN, CREATININE, CA)2020-11-04 10:53:10 Test Item Value Reference Range Interpretation Comments NA (test code = 151 mmol/L 135-145 H 0785516562) K (test code = 3.8 mmol/L 3.5-5.0 8542499105) CL (test code = 119 mmol/L 98-108 H 4534901653) CO2 TOTAL (test code = 27 mmol/L 23-31 4843648773) AGAP (test code = 2-16 7411219869) BUN (test code = 48 mg/dL 7-23 H 4611569254) GLUCOSE (test code = 131 mg/dL 70-110 H 1313848844) CREATININE (test code = 1.36 mg/dL 0.60-1.25 H 0641018499) CALCIUM (test code = 8.1 mg/dL 8.6-10.6 L 8372112310) eGFR (test code = mL/min/1.73m2 1807915397) JUAN LUIS (test code = JUAN LUIS) [...] tests). Lab Interpretation Abnormal (test code = 98899-7) [facility] 10:48:27 Test Item Value Reference Range Interpretation Comments MAGNESIUM (test code = 2210133284) 2.6 mg/dL 1.7-2.4 H Lab Interpretation (test code = Abnormal 62759-6) [facility] [id number] 10:27:45 Test Item Value Reference Range Interpretation Comments WBC (test code = See_Comment H [Automated message] 6690-2) The system [employer] generated this result transmitted ref erence range: 4.20 - 1 0.70 10*3/?L. The reference range was not used to int erpret this result as normal/abnormal . RBC (test code = 789-8) See_Comment L [Au tomated message] The system [employer] generated this result transmitted ref erence range: [...] 777-3) See_Comment [Au tomated message] The system [employer] generated this result transmitted ref erence range: 150 - 32 8 10*3/?L. The reference range was not used to int erpret this result as normal/abnormal . MPV (test code = Not Measure d 53465-8) RDW-CV (test code = 24.3 % 12.1-15.4 H 788-0) RDW-SD (test code = 68.2 fL 38.5-51.6 H 10997-4) NRBC x10^3 (test code = See_Comment [Au tomated message] 6682250370) The system [employer] generated this result transmitted ref erence range: 10*3/?L. The reference range was not used to int erpret this result as normal/abnormal . NRBC/100 WBC (test code See_Comment [Au tomated message] = 1296557602) The system [employer] generated this result transmitted ref erence range: 0.0 - 10 .0 /100 WBCs. The reference range was not used to int erpret this result as normal/abnormal . IPF % (test code = 10.2 % 1.2-10.7 Platelet count 1472591595) measured by fluorescence me thod. Lab Interpretation Abnormal (test code = 54654-4) [facility]2020-11-03 16:55:39 Test Item Value Reference Range Interpretation Comments POCT GLU (test code = 2669789911) 123 mg/dL 70-110 H Lab Interpretation (test code = Abnormal 72803-6) [facility] METABOLIC PANEL (NA, K, CL, CO2, GLUCOSE, BUN, CREATININE, CA)2020-11-03 13:46:00 Test Item Value Reference Range Interpretation Comments NA (test code = 148 mmol/L 135-145 H 9813151985) K (test code = 4.7 mmol/L 3.5-5.0 4939203110) CL (test code = 120 mmol/L 98-108 H 7888810332) CO2 TOTAL (test code = 26 mmol/L 23-31 9355302303) AGAP (test code = 2-16 2654120702) BUN (test code = 47 mg/dL 7-23 H 9276445720) GLUCOSE (test code = 176 mg/dL 70-110 H 2831697063) CREATININE (test code = 1.35 mg/dL 0.60-1.25 H 9486562880) CALCIUM (test code = 8.0 mg/dL 8.6-10.6 L 8286694971) eGFR (test code = mL/min/1.73m2 0640992812) JUAN LUIS (test code = JUAN LUIS) [...] tests). Lab Interpretation Abnormal (test code = 74289-1) [facility] Test Item Value Reference Range Interpretation Comments MAGNESIUM (test code = 5678812755) 2.8 mg/dL 1.7-2.4 H Lab Interpretation (test code = Abnormal 90646-0) [facility]2020-11-03 12:57:44 Test Item Value Reference Range Interpretation Comments POCT GLU (test code = 0541399102) 190 mg/dL 70-110 H Lab Interpretation (test code = Abnormal 26570-0) [facility] WITH [id number] 11:16:10 Test Item Value Reference Range Interpretation [...] (test code = 62.2 fL 38.5-51.6 H 58601-2) RDW-CV (test code = 23.3 % 12.1-15.4 H 788-0) PLT (test code = See_Comment [Automated 777-3) message] The sy stem which generated this result transmitted reference range : 150 - 328 10*3/ ?L. The reference r christine was not used to interpret this result as normal/abnormal . MPV (test code = Not Measure d 33090-3) IPF % (test code = 8.2 % 1.2-10.7 Platelet count 8892737587) measured by fluorescence method. NRBC/100 WBC (test See_Comment [Automat ed code = 2149833666) message] The system which generated this result transmitted reference range : 0.0 - 10.0 /100 WBCs. The refer ence range was not u sed to interpret th is result as normal/abnormal . NRBC x10^3 (test code See_Comment [Auto mated = 3727572693) message] The s ystem which generated this result transmitted reference range : 10*3/?L. The reference range was not used to interpret this result as normal/abnormal . GRAN MAT (NEUT) % 80.9 % (test code = 770-8) IMM GRAN % (test code 0.50 % = 1904405708) LYMPH % (test code = 5.3 % 736-9) MONO % (test code = 11.6 % 5905-5) EOS % (test code = 1.5 % 713-8) BASO % (test code = 0.2 % 706-2) GRAN MAT x10^3(ANC) 10.75 10*3/uL 1.99-6.95 H (test code = 5775667332) IMM GRAN x10^3 (test 0.06 10*3/uL 0.00-0.06 code = 5877857603) LYMPH x10^3 (test 0.71 10*3/uL 1.09-3.23 L code = 731-0) MONO x10^3 (test code 1.54 10*3/uL 0.36-1.02 H = 742-7) EOS x10^3 (test code 0.20 10*3/uL 0.06-0.53 = 711-2) BASO x10^3 (test code 0.03 10*3/uL 0.01-0.09 = 704-7) BASO STIPPLING (test Present A code = 703-9) SCHISTOCYTES (test 1+ A code = 800-3) Lab Interpretation Abnormal (test code = 61866-6) [facility] WITH [id number] 11:16:10 Test Item Value Reference Range Interpretation [...] (test code = 62.2 fL 38.5-51.6 H 82697-3) RDW-CV (test code = 23.3 % 12.1-15.4 H 788-0) PLT (test code = See_Comment [Automated 777-3) message] The sy stem which generated this result transmitted reference range : 150 - 328 10*3/ ?L. The reference r christine was not used to interpret this result as normal/abnormal . MPV (test code = Not Measure d 88925-6) IPF % (test code = 8.2 % 1.2-10.7 Platelet count 1950784218) measured by fluorescence method. NRBC/100 WBC (test See_Comment [Automat ed code = 2628219166) message] The system which generated this result transmitted reference range : 0.0 - 10.0 /100 WBCs. The refer ence range was not u sed to interpret th is result as normal/abnormal . NRBC x10^3 (test code See_Comment [Auto mated = 2263524755) message] The s ystem which generated this result transmitted reference range : 10*3/?L. The reference range was not used to interpret this result as normal/abnormal . GRAN MAT (NEUT) % 80.9 % (test code = 770-8) IMM GRAN % (test code 0.50 % = 5294207550) LYMPH % (test code = 5.3 % 736-9) MONO % (test code = 11.6 % 5905-5) EOS % (test code = 1.5 % 713-8) BASO % (test code = 0.2 % 706-2) GRAN MAT x10^3(ANC) 10.75 10*3/uL 1.99-6.95 H (test code = 7580610224) IMM GRAN x10^3 (test 0.06 10*3/uL 0.00-0.06 code = 3975075772) LYMPH x10^3 (test 0.71 10*3/uL 1.09-3.23 L code = 731-0) MONO x10^3 (test code 1.54 10*3/uL 0.36-1.02 H = 742-7) EOS x10^3 (test code 0.20 10*3/uL 0.06-0.53 = 711-2) BASO x10^3 (test code 0.03 10*3/uL 0.01-0.09 = 704-7) BASO STIPPLING (test Present A code = 703-9) SCHISTOCYTES (test 1+ A code = 800-3) Lab Interpretation Abnormal (test code = 93022-9) [facility] GLUCOSE (AUTOMATED)2020-11-03 10:14:51 Test Item Value Reference Range Interpretation Comments POCT GLU (test code = 2882653366) 198 mg/dL 70-110 H Lab Interpretation (test code = Abnormal 13604-4) [facility] GLUCOSE (AUTOMATED)2020-11-03 04:39:58 Test Item Value Reference Range Interpretation Comments POCT GLU (test code = 8336954139) 169 mg/dL 70-110 H Lab Interpretation (test code = Abnormal 05810-7) [facility] (NA, K, CL, CO2, GLUCOSE, BUN, CREATININE, CA)2020-11-03 02:59:33 Test Item Value Reference Range Interpretation Comments NA (test code = 150 mmol/L 135-145 H 4936539821) K (test code = 4.8 mmol/L 3.5-5.0 Slight 0374510274) hemolysis CL (test code = 121 mmol/L 98-108 H 4355815417) CO2 TOTAL (test code 24 mmol/L 23-31 = 4714013059) AGAP (test code = 2-16 9062152783) BUN (test code = 48 mg/dL 7-23 H Slight 7253298650) hemolysis GLUCOSE (test code = 135 mg/dL 70-110 H 2792939816) CREATININE (test code 1.25 mg/dL 0.60-1.25 = 7045877406) CALCIUM (test code = 7.7 mg/dL 8.6-10.6 L [id number]) eGFR (test code = mL/min/1.73m2 5546645623) JUAN LUIS (test code = JUAN LUIS) [...] tests). Lab Interpretation Abnormal (test code = 97068-0) [facility]:51:21 Test Item Value Reference Range Interpretation Comments MAGNESIUM (test code = 0548182580) 2.5 mg/dL 1.7-2.4 H Lab Interpretation (test code = Abnormal 27168-9) [facility] BranchMENINGITIS/ENCEPHALITIS PANEL BY [id number] 23:12:08 Test Item Value Reference Range Interpretation Comments Escherichia coli K1 Negative Negative, (test code = 28575-1) Indeterminate, See Comment Haemophilus influenzae Negative Negative, (test code = 07917-1) Indeterminate, See Comment Listeria monocytogenes Negative Negative, (test code = 57965-4) Indeterminate, See Comment Neisseria meningitidis Negative Negative, (encapsulated) (test Indeterminate, code = 58096-8) See Comment Streptococcus agalactiae Negative Negative, (test code = 82521-3) Indeterminate, See Comment Streptococcus pneumoniae Negative Negative, (test code = 23476-6) Indeterminate, See Comment Cytomegalovirus (test Negative Negative, code = 76342-0) Indeterminate, See Comment Enterovirus (test code = Negative Negative, 94242-8) Indeterminate, See Comment Herpes simplex virus 1 Negative Negative, (test code = 12881-9) Indeterminate, See Comment Herpes simplex virus 2 Negative Negative, (test code = 28646-4) Indeterminate, See Comment Human herpesvirus 6 Negative Negative, (test code = 58144-7) Indeterminate, See Comment Human parechovirus (test Negative Negative, code = 70196-8) Indeterminate, See Comment Varicella zoster virus Negative Negative, (test code = 93402-6) Indeterminate, See Comment Cryptococcus Negative Negative, neoformans/gattii (test Indeterminate, code = 43259-8) See Comment JUAN LUIS (test code = JUAN LUIS) Negative:A negative result does not rule-out infection. ?This assay does not test for all potential infectious agents. Positive:A positive test result does not necessarily indicate the presence of viable organism. ? Lab Interpretation (test Normal code = 77918-3) [facility] BranchMENINGITIS/ENCEPHALITIS PANEL BY [id number] 23:12:08 Test Item Value Reference Range Interpretation Comments Escherichia coli K1 Negative Negative, (test code = 00988-1) Indeterminate, See Comment Haemophilus influenzae Negative Negative, (test code = 83818-3) Indeterminate, See Comment Listeria monocytogenes Negative Negative, (test code = 28728-8) Indeterminate, See Comment Neisseria meningitidis Negative Negative, (encapsulated) (test Indeterminate, code = 54678-4) See Comment Streptococcus agalactiae Negative Negative, (test code = 85919-1) Indeterminate, See Comment Streptococcus pneumoniae Negative Negative, (test code = 17076-8) Indeterminate, See Comment Cytomegalovirus (test Negative Negative, code = 53485-9) Indeterminate, See Comment Enterovirus (test code = Negative Negative, 01541-8) Indeterminate, See Comment Herpes simplex virus 1 Negative Negative, (test code = 67310-2) Indeterminate, See Comment Herpes simplex virus 2 Negative Negative, (test code = 58083-0) Indeterminate, See Comment Human herpesvirus 6 Negative Negative, (test code = 19120-8) Indeterminate, See Comment Human parechovirus (test Negative Negative, code = 36451-5) Indeterminate, See Comment Varicella zoster virus Negative Negative, (test code = 63063-1) Indeterminate, See Comment Cryptococcus Negative Negative, neoformans/gattii (test Indeterminate, code = 25074-1) See Comment JUAN LUIS (test code = JUAN LUIS) Negative:A negative result does not rule-out infection. ?This assay does not test for all potential infectious agents. Positive:A positive test result does not necessarily indicate the presence of viable organism. ? Lab Interpretation (test Normal code = 36856-5) [facility]ENCE[facility]ALITIS PANEL BY [id number] 23:12:08 Test Item Value Reference Range Interpretation Comments Escherichia coli K1 Negative Negative, (test code = 24876-9) Indeterminate, See Comment Haemophilus influenzae Negative Negative, (test code = 27248-4) Indeterminate, See Comment Listeria monocytogenes Negative Negative, (test code = 69523-7) Indeterminate, See Comment Neisseria meningitidis Negative Negative, (encapsulated) (test Indeterminate, code = 56839-8) See Comment Streptococcus agalactiae Negative Negative, (test code = 03979-1) Indeterminate, See Comment Streptococcus pneumoniae Negative Negative, (test code = 77311-2) Indeterminate, See Comment Cytomegalovirus (test Negative Negative, code = 63910-4) Indeterminate, See Comment Enterovirus (test code = Negative Negative, 07614-9) Indeterminate, See Comment Herpes simplex virus 1 Negative Negative, (test code = 99482-6) Indeterminate, See Comment Herpes simplex virus 2 Negative Negative, (test code = 32171-9) Indeterminate, See Comment Human herpesvirus 6 Negative Negative, (test code = 17420-4) Indeterminate, See Comment Human parechovirus (test Negative Negative, code = 38698-3) Indeterminate, See Comment Varicella zoster virus Negative Negative, (test code = 50626-0) Indeterminate, See Comment Cryptococcus Negative Negative, neoformans/gattii (test Indeterminate, code = 94327-9) See Comment JUAN LUIS (test code = JUAN LUIS) Negative:A negative result does not rule-out infection. ?This assay does not test for all potential infectious agents. Positive:A positive test result does not necessarily indicate the presence of viable organism. ? Lab Interpretation (test Normal code = 58448-4) [facility] GLUCOSE (AUTOMATED)2020-11-02 22:21:28 Test Item Value Reference Range Interpretation Comments POCT GLU (test code = 8630500242) 94 mg/dL 70-110 Lab Interpretation (test code = Normal 84228-8) [facility] FLUID DIRECT [id number] 22:15:37 Test Item Value Reference Range Interpretation Comments BF COLOR (test code = Clear 1673209254) BF WBC Count (test See_Comment [Automat ed message] The code = 2690861993) system [facility] generated this result transmit tennille reference range : 0 - 5 /?L. The reference r christine was not used to interpr et this result as bri l/abnormal. BF RBC Count (test See_Comment [Automat ed message] The code = 7337785416) system [facility] generated this result transmit tennille reference range : /?L. The reference range was not used to interpr et this result as bri l/abnormal. [facility] FLUID DIRECT [id number] 22:15:37 Test Item Value Reference Range Interpretation Comments BF COLOR (test code = Clear 9080880695) BF WBC Count (test See_Comment [Automat ed message] The code = 3141620012) system [facility] generated this result transmit tennille reference range : 0 - 5 /?L. The reference r christine was not used to interpr et this result as bri l/abnormal. BF RBC Count (test See_Comment [Automat ed message] The code = 0454771825) system [facility] generated this result transmit tennille reference range : /?L. The reference range was not used to interpr et this result as bri l/abnormal. [facility] FLUID DIRECT [id number] 22:15:37 Test Item Value Reference Range Interpretation Comments BF COLOR (test code = Clear 9476825137) BF WBC Count (test See_Comment [Automat ed message] The code = 1792796589) system [facility] generated this result transmit tennille reference range : 0 - 5 /?L. The reference r christine was not used to interpr et this result as bri l/abnormal. BF RBC Count (test See_Comment [Automat ed message] The code = 9995568653) system [facility] generated this result transmit tennille reference range : /?L. The reference range was not used to interpr et this result as bri l/abnormal. [facility] FLUID MANUAL [id number] 22:15:37#CELS CNTDUTMB LABORATORY SERVICESLess than 100 cells counted due to low WBC; Differential is not reported in percent. ?44 cells counted: ?0 Neutrophils, 17 Lymphocytes, 27 MacrophagesUnUniversity [facility] of El PasoBODY FLUID MANUAL [id number] 22:15:37#CELS CNTDUTMB LABORATORY SERVICESLess than 100 cells counted due to low WBC; Differential is not reported in percent. ?44 cells counted: ?0 Neutrophils, 17 Lymphocytes, 27 MacrophagesUnUniversity Medical Center of El PasoBODY FLUID MANUAL [id number] 22:15:37#CELS CNTDUTMB LABORATORY SERVICESLess than 100 cells counted due to low WBC; Differential is not reported in percent. ?44 cells counted: ?0 Neutrophils, 17 Lymphocytes, 27 Macrophages [facility] [id number] 21:46:09 Test Item Value Reference Range Interpretation Comments GLU CSF (test code = 1029703600) 80 mg/dL 50-80 UNSPUN BODY FLUID COLOR (test Colorless code = 4275785328) UNSPUN BODY FLUID CLARITY (test Clear code = 4740270999) SPUN BODY FLUID COLOR (test code Colorless = 6219376474) SPUN BODY FLUID CLARITY (test Clear code = 0619511858) Sediment (test code = No sediment. 9274364149) [facility] [id number] 21:46:09 Test Item Value Reference Range Interpretation Comments GLU CSF (test code = 8352288395) 80 mg/dL 50-80 UNSPUN BODY FLUID COLOR (test Colorless code = 1552272193) UNSPUN BODY FLUID CLARITY (test Clear code = 5554965265) SPUN BODY FLUID COLOR (test code Colorless = 3490295478) SPUN BODY FLUID CLARITY (test Clear code = 4452825463) Sediment (test code = No sediment. 4464399603) [facility] [id number] 21:46:09 Test Item Value Reference Range Interpretation Comments GLU CSF (test code = 9922707583) 80 mg/dL 50-80 UNSPUN BODY FLUID COLOR (test Colorless code = 7160054030) UNSPUN BODY FLUID CLARITY (test Clear code = 9567069781) SPUN BODY FLUID COLOR (test code Colorless = 7119652450) SPUN BODY FLUID CLARITY (test Clear code = 1270218415) Sediment (test code = No sediment. 5574832771) [facility] [id number] 21:46:03 Test Item Value Reference Range Interpretation Comments T. PRO CSF (test code = 103.0 mg/dL 15.0-45.0 H 8858038436) UNSPUN BODY FLUID COLOR (test Colorless code = 1145818813) UNSPUN BODY FLUID CLARITY (test Clear code = 3969800822) SPUN BODY FLUID COLOR (test code Colorless = 4875132139) SPUN BODY FLUID CLARITY (test Clear code = 0777598553) Sediment (test code = No sediment. 2660509077) Lab Interpretation (test code = Abnormal 52996-3) [facility] Fl[facility] [id number] 21:46:03 Test Item Value Reference Range Interpretation Comments T. PRO CSF (test code = 103.0 mg/dL 15.0-45.0 H 4605166580) UNSPUN BODY FLUID COLOR (test Colorless code = 4111729071) UNSPUN BODY FLUID CLARITY (test Clear code = 7515613694) SPUN BODY FLUID COLOR (test code Colorless = 6336530433) SPUN BODY FLUID CLARITY (test Clear code = 4341476606) Sediment (test code = No sediment. 6635428254) Lab Interpretation (test code = Abnormal 31331-9) [facility] Fl[facility] [id number] 21:46:03 Test Item Value Reference Range Interpretation Comments T. PRO CSF (test code = 103.0 mg/dL 15.0-45.0 H 8503488180) UNSPUN BODY FLUID COLOR (test Colorless code = 3884094539) UNSPUN BODY FLUID CLARITY (test Clear code = 0321854573) SPUN BODY FLUID COLOR (test code Colorless = 2952143691) SPUN BODY FLUID CLARITY (test Clear code = 8121797557) Sediment (test code = No sediment. 7970467347) Lab Interpretation (test code = Abnormal 74176-9) [facility] METABOLIC PANEL (NA, K, CL, CO2, GLUCOSE, BUN, CREATININE, CA)2020-11-02 18:27:27 Test Item Value Reference Range Interpretation Comments NA (test code = 152 mmol/L 135-145 H 5006581700) K (test code = 3.8 mmol/L 3.5-5.0 4157043941) CL (test code = 123 mmol/L 98-108 H 7323589340) CO2 TOTAL (test code = 23 mmol/L 23-31 2752652063) AGAP (test code = 2-16 9604265803) BUN (test code = 49 mg/dL 7-23 H 5977678848) GLUCOSE (test code = 150 mg/dL 70-110 H 7824095264) CREATININE (test code = 1.37 mg/dL 0.60-1.25 H 7613578653) CALCIUM (test code = 7.9 mg/dL 8.6-10.6 L 3294611263) eGFR (test code = mL/min/1.73m2 4131703328) JUAN LUIS (test code = JUAN LUIS) [...] tests). Lab Interpretation Abnormal (test code = 66030-7) [facility] Test Item Value Reference Range Interpretation Comments MAGNESIUM (test code = 7855635680) 2.7 mg/dL 1.7-2.4 H Lab Interpretation (test code = Abnormal 38544-9) [facility] 17[facility]42:23 Test Item Value Reference Range Interpretation Comments MAGNESIUM (test code = 6196299559) 2.6 mg/dL 1.7-2.4 H Lab Interpretation (test code = Abnormal 99083-8) [facility] GLUCOSE (AUTOMATED)2020-11-02 16:39:58 Test Item Value Reference Range Interpretation Comments POCT GLU (test code = 7286252703) 148 mg/dL 70-110 H Lab Interpretation (test code = Abnormal 73366-8) [facility] GLUCOSE (AUTOMATED)2020-11-02 12:48:24 Test Item Value Reference Range Interpretation Comments POCT GLU (test code = 9515871455) 183 mg/dL 70-110 H Lab Interpretation (test code = Abnormal 52643-1) [facility] WITH [id number] 10:59:44 Test Item Value Reference Range Interpretation [...] (test code = 60.9 fL 38.5-51.6 H 54260-7) RDW-CV (test code = 22.7 % 12.1-15.4 H 788-0) PLT (test code = See_Comment L [Automated 777-3) message] The sy stem which generated this result transmitted reference range : 150 - 328 10*3/ ?L. The reference r christine was not used to interpret this result as normal/abnormal . MPV (test code = Not Measure d 51736-3) IPF % (test code = 9.7 % 1.2-10.7 Platelet count 0793860710) measured by fluorescence method. NRBC/100 WBC (test See_Comment [Automat ed code = 2974577306) message] The system which generated this result transmitted reference range : 0.0 - 10.0 /100 WBCs. The refer ence range was not u sed to interpret th is result as normal/abnormal . NRBC x10^3 (test code See_Comment [Auto mated = 4108653443) message] The s ystem which generated this result transmitted reference range : 10*3/?L. The reference range was not used to interpret this result as normal/abnormal . GRAN MAT (NEUT) % 81.9 % (test code = 770-8) IMM GRAN % (test code 0.80 % = 9223343888) LYMPH % (test code = 6.7 % 736-9) MONO % (test code = 8.4 % 5905-5) EOS % (test code = 2.0 % 713-8) BASO % (test code = 0.2 % 706-2) GRAN MAT x10^3(ANC) 11.65 10*3/uL 1.99-6.95 H (test code = 8603667164) IMM GRAN x10^3 (test 0.11 10*3/uL 0.00-0.06 H code = 2167679180) LYMPH x10^3 (test 0.96 10*3/uL 1.09-3.23 L code = 731-0) MONO x10^3 (test code 1.20 10*3/uL 0.36-1.02 H = 742-7) EOS x10^3 (test code 0.28 10*3/uL 0.06-0.53 = 711-2) BASO x10^3 (test code 0.03 10*3/uL 0.01-0.09 = 704-7) SCHISTOCYTES (test 1+ A code = 800-3) BANDS (test code = Increased A 4735338816) TOXIC CHANGES (test Present A code = 803-7) GIANT PLATELETS (test Present See_Comment A [Auto mated code = 5908-9) message] The system which generated this result transmitted reference range : (none). The reference range was not used to interpret this result as normal/abnormal . Lab Interpretation Abnormal (test code = 14300-1) [facility] METABOLIC PANEL (NA, K, CL, CO2, GLUCOSE, BUN, CREATININE, CA)2020-11-02 10:52:59 Test Item Value Reference Range Interpretation Comments NA (test code = 150 mmol/L 135-145 H 7836496101) K (test code = 4.0 mmol/L 3.5-5.0 8030462874) CL (test code = 121 mmol/L 98-108 H 2764942280) CO2 TOTAL (test code = 22 mmol/L 23-31 L 2812479036) AGAP (test code = 2-16 0627772038) BUN (test code = 49 mg/dL 7-23 H 2894100135) GLUCOSE (test code = 162 mg/dL 70-110 H 1404727035) CREATININE (test code = 1.42 mg/dL 0.60-1.25 H 4893635100) CALCIUM (test code = 7.8 mg/dL 8.6-10.6 L 3909508175) eGFR (test code = mL/min/1.73m2 1368069784) JUAN LUIS (test code = JUAN LUIS) [...] tests). Lab Interpretation Abnormal (test code = 02964-2) [facility], [id number] 07:23:16 Test Item Value Reference Range Interpretation Comments VIT B12 (test code = 956 pg/mL 240-930 H 5146509783) JUAN LUIS (test code = JUAN LUIS) Biotin has been reported to cause a positive bias, interpret results relative to patient's use of biotin. Lab Interpretation (test Abnormal code = 52744-7) [facility] B12, [id number] 07:23:16 Test Item Value Reference Range Interpretation Comments VIT B12 (test code = 956 pg/mL 240-930 H 5420821276) JUAN LUIS (test code = JUAN LUIS) Biotin has been reported to cause a positive bias, interpret results relative to patient's use of biotin. Lab Interpretation (test Abnormal code = 35232-6) [facility] B12, [id number] 07:23:16 Test Item Value Reference Range Interpretation Comments VIT B12 (test code = 956 pg/mL 240-930 H 5541253939) JUAN LUIS (test code = JUAN LUIS) Biotin has been reported to cause a positive bias, interpret results relative to patient's use of biotin. Lab Interpretation (test Abnormal code = 13327-3) [facility] 04:03:00 Test Item Value Reference Range Interpretation Comments FOLATE SER (test code = 5999110196) >20.0 3.0-20.0 H Lab Interpretation (test code = Abnormal 92270-2) [facility] 04:03:00 Test Item Value Reference Range Interpretation Comments FOLATE SER (test code = 7735709060) >20.0 3.0-20.0 H Lab Interpretation (test code = Abnormal 45044-8) [facility]-21 04:03:00 Test Item Value Reference Range Interpretation Comments FOLATE SER (test code = 3782959180) >20.0 3.0-20.0 H Lab Interpretation (test code = Abnormal 67575-8) [facility]SE [facility]2020-11-02 03:58:01 Test Item Value Reference Range Interpretation Comments POCT GLU (test code = 2362895763) 109 mg/dL 70-110 Lab Interpretation (test code = Normal 71129-7) [facility]AllenTHYROID STIMULATING [id number] 03:26:53 Test Item Value Reference Range Interpretation Comments TSH (test code = See_Comment Biotin has been 8727563174) reported to cau se a negative bias, interpret resul ts relative to pat ient's use of biotin. [Automated mess age] The system [employer] generated this result transmitted ref erence range: 0.45 - 4 .70 mIU/L. The refe rence range was not u sed to interpret this result as normal/abnor mal. Lab Interpretation (test Normal code = 32779-0) [facility]AllenTHYROID STIMULATING [id number] 03:26:53 Test Item Value Reference Range Interpretation Comments TSH (test code = See_Comment Biotin has been 5778264452) reported to cau se a negative bias, interpret resul ts relative to pat ient's use of biotin. [Automated mess age] The system [employer] generated this result transmitted ref erence range: 0.45 - 4 .70 mIU/L. The refe rence range was not u sed to interpret this result as normal/abnor mal. Lab Interpretation (test Normal code = 53790-8) [facility]Allen[facility]YROID STIMULATING [id number] 03:26:53 Test Item Value Reference Range Interpretation Comments TSH (test code = See_Comment Biotin has been 5962492580) reported to cau se a negative bias, interpret resul ts relative to pat ient's use of biotin. [Automated mess age] The system [employer] generated this result transmitted ref erence range: 0.45 - 4 .70 mIU/L. The refe rence range was not u sed to interpret this result as normal/abnor mal. Lab Interpretation (test Normal code = 42252-6) [facility]AllenBL[facility] CULTURE [id number] 01:01:36 Test Item Value Reference Range Interpretation Comments Blood Culture-Aerobic No organisms No growth Previo us (test code = 30810-9) isolated prelim inary verified result was Culture [...] Culture-Anaerobic isolated preliminar y (test code = 49965-4) verifi ed result was Culture In Progress [...] CDT Lab Interpretation Normal (test code = 62579-3) [facility] CULTURE [id number] 01:01:36 Test Item Value Reference Range Interpretation Comments Blood Culture-Aerobic No organisms No growth Previo us (test code = 41706-9) isolated prelim inary verified result was Culture [...] Culture-Anaerobic isolated preliminar y (test code = 09287-9) verifi ed result was Culture In Progress [...] CDT Lab Interpretation Normal (test code = 46138-7) [facility] CULTURE [id number] 01:01:36 Test Item Value Reference Range Interpretation Comments Blood Culture-Aerobic No organisms No growth Previo us (test code = 66285-2) isolated prelim inary verified result was Culture [...] Culture-Anaerobic isolated preliminar y (test code = 29071-7) verifi ed result was Culture In Progress [...] CDT Lab Interpretation Normal (test code = 50260-2) [facility] [id number] 01:01:36 Test Item Value Reference Range Interpretation Comments Blood Culture-Aerobic No organisms No growth Previo us (test code = 81717-9) isolated prelim inary verified result was Culture [...] Culture-Anaerobic isolated preliminar y (test code = 97409-7) verifi ed result was Culture In Progress [...] CDT Lab Interpretation Normal (test code = 72676-9) [facility]2020-11-02 00:43:35 Test Item Value Reference Range Interpretation Comments POCT GLU (test code = 8022485040) 204 mg/dL 70-110 H Lab Interpretation (test code = Abnormal 52250-4) [facility]AllenElectroencephalogram (EEG) - Duration of test: 20-60 mins; Release to patient: [id number] 00:00:00Date and Time of Procedure: 11/02/2020, 8:47:43 [...] Rose MD Date of int erpretation: 11/02/2020[facility] PasoElectroencephalogram (EEG) - Duration of test: 20-60 mins; Release to patient: [id number] 00:00:00Date and Time of Procedure: 11/02/2020, 8:47:43 [...] indicated. Lindsey Rose MD Date of interpretation: 11/02/2020[facility] (EEG) - Duration of test: 20-60 mins; Release to patient: [id number] 00:00:00Date and Time of Procedure: 11/02/2020, 8:47:43 [...] Lindsey Rose MD Date of int erpretation: [facility]/2020[facility] 2020-11-01 21:47:18 Test Item Value Reference Range Interpretation Comments POCT GLU (test code = 8756953360) 155 mg/dL 70-110 H Lab Interpretation (test code = Abnormal 75284-0) [facility] GLUCOSE (AUTOMATED)2020-11-01 21:00:48 Test Item Value Reference Range Interpretation Comments POCT GLU (test code = 0835492198) 149 mg/dL 70-110 H Lab Interpretation (test code = Abnormal 86609-7) [facility] McAllenPROCALCITONIN2021-04-20 20:04:50 Test Item Value Reference Range Interpretation Comments Procalcitonin (test 0.24 ng/mL <0.07 H code = 0383648103) JUAN LUIS (test code = JUAN LUIS) [...] lung abscess/empyema. For further information please refer to:[email or web address] Lab Interpretation Abnormal (test code = 90879-2) [facility] McAllenPROCALCITONIN2021-04-20 20:04:50 Test Item Value Reference Range Interpretation Comments Procalcitonin (test 0.24 ng/mL <0.07 H code = 1412177264) JUAN LUIS (test code = JUAN LUIS) [...] infection by physiologic stress related to trauma, am, chronic dialysis, metastatic cancer, surgery in the [...] lung abscess/empyema. For further information please refer to:[email or web address] Lab Interpretation Abnormal (test code = 40464-8) [facility] McAllenPROCALCITONIN2021-04-20 20:04:50 Test Item Value Reference Range Interpretation Comments Procalcitonin (test 0.24 ng/mL <0.07 H code = 7820172108) JUAN LUIS (test code = JUAN LUIS) [...] lung abscess/empyema. For further information please refer to:[email or web address] Lab Interpretation Abnormal (test code = 33311-5) [facility] METABOLIC PANEL (NA, K, CL, CO2, GLUCOSE, BUN, CREATININE, CA)2020-11-01 18:21:16 Test Item Value Reference Range Interpretation Comments NA (test code = 149 mmol/L 135-145 H 2489348943) K (test code = 3.9 mmol/L 3.5-5.0 9495836548) CL (test code = 121 mmol/L 98-108 H 9905336204) CO2 TOTAL (test code = 22 mmol/L 23-31 L 4739132818) AGAP (test code = 2-16 0596897760) BUN (test code = 47 mg/dL 7-23 H 6627856779) GLUCOSE (test code = 218 mg/dL 70-110 H 5017210295) CREATININE (test code = 1.42 mg/dL 0.60-1.25 H 8153262449) CALCIUM (test code = 7.6 mg/dL 8.6-10.6 L 0764785623) eGFR (test code = mL/min/1.73m2 5656833430) JUAN LUIS (test code = JUAN LUIS) [...] tests). Lab Interpretation Abnormal (test code = 94802-8) [facility] GLUCOSE (AUTOMATED)2020-11-01 17:04:41 Test Item Value Reference Range Interpretation Comments POCT GLU (test code = 2452199568) 246 mg/dL 70-110 H Lab Interpretation (test code = Abnormal 84506-3) [facility] GLUCOSE (AUTOMATED)2020-11-01 12:53:56 Test Item Value Reference Range Interpretation Comments POCT GLU (test code = 0591199534) 214 mg/dL 70-110 H Lab Interpretation (test code = Abnormal 90623-5) [facility] WITH [id number] 11:03:22 Test Item Value Reference Range Interpretation [...] (test code = 60.5 fL 38.5-51.6 H 54323-8) RDW-CV (test code = 22.5 % 12.1-15.4 H 788-0) PLT (test code = See_Comment L [Automated 777-3) message] The sy stem which generated this result transmitted reference range : 150 - 328 10*3/ ?L. The reference r christine was not used to interpret this result as normal/abnormal . MPV (test code = Not Measure d 72810-2) IPF % (test code = 6.1 % 1.2-10.7 Platelet count 1971631541) measured by fluorescence method. NRBC/100 WBC (test See_Comment [Automat ed code = 8967551093) message] The system which generated this result transmitted reference range : 0.0 - 10.0 /100 WBCs. The refer ence range was not u sed to interpret th is result as normal/abnormal . NRBC x10^3 (test code See_Comment [Auto mated = 6904688459) message] The s ystem which generated this result transmitted reference range : 10*3/?L. The reference range was not used to interpret this result as normal/abnormal . GRAN MAT (NEUT) % 83.1 % (test code = 770-8) IMM GRAN % (test code 1.00 % = 4346277202) LYMPH % (test code = 7.0 % 736-9) MONO % (test code = 6.7 % 5905-5) EOS % (test code = 2.0 % 713-8) BASO % (test code = 0.2 % 706-2) GRAN MAT x10^3(ANC) 12.96 10*3/uL 1.99-6.95 H (test code = 2681748384) IMM GRAN x10^3 (test 0.15 10*3/uL 0.00-0.06 H code = 9998278589) LYMPH x10^3 (test 1.09 10*3/uL 1.09-3.23 code = 731-0) MONO x10^3 (test code 1.05 10*3/uL 0.36-1.02 H = 742-7) EOS x10^3 (test code 0.31 10*3/uL 0.06-0.53 = 711-2) BASO x10^3 (test code 0.03 10*3/uL 0.01-0.09 = 704-7) SCHISTOCYTES (test 1+ A code = 800-3) TOXIC CHANGES (test Present A code = 803-7) Lab Interpretation Abnormal (test code = 02718-5) [facility] METABOLIC PANEL (NA, K, CL, CO2, GLUCOSE, BUN, CREATININE, CA)2020-11-01 10:58:55 Test Item Value Reference Range Interpretation Comments NA (test code = 151 mmol/L 135-145 H 0371009723) K (test code = 4.0 mmol/L 3.5-5.0 2951039965) CL (test code = 124 mmol/L 98-108 H 3526002607) CO2 TOTAL (test code = 22 mmol/L 23-31 L 4497617108) AGAP (test code = 2-16 5149420666) BUN (test code = 48 mg/dL 7-23 H 8342001866) GLUCOSE (test code = 201 mg/dL 70-110 H 8353455187) CREATININE (test code = 1.46 mg/dL 0.60-1.25 H 1913483447) CALCIUM (test code = 7.7 mg/dL 8.6-10.6 L 3910248614) eGFR (test code = mL/min/1.73m2 4271815014) JUAN LUIS (test code = JUAN LUIS) [...] tests). Lab Interpretation Abnormal (test code = 92673-1) [facility] GLUCOSE (AUTOMATED)2020-11-01 10:42:03 Test Item Value Reference Range Interpretation Comments POCT GLU (test code = 3772488541) 208 mg/dL 70-110 H Lab Interpretation (test code = Abnormal 28886-2) [facility] GLUCOSE (AUTOMATED)2020-11-01 08:18:28 Test Item Value Reference Range Interpretation Comments POCT GLU (test code = 6973007097) 218 mg/dL 70-110 H Lab Interpretation (test code = Abnormal 20442-7) [facility] METABOLIC PANEL (NA, K, CL, CO2, GLUCOSE, BUN, CREATININE, CA)2020-11-01 06:04:39 Test Item Value Reference Range Interpretation Comments NA (test code = 152 mmol/L 135-145 H 7920880107) K (test code = 4.0 mmol/L 3.5-5.0 9304188008) CL (test code = 123 mmol/L 98-108 H 4235993050) CO2 TOTAL (test code = 23 mmol/L 23-31 8123895648) AGAP (test code = 2-16 4209525094) BUN (test code = 49 mg/dL 7-23 H 7297937646) GLUCOSE (test code = 144 mg/dL 70-110 H 4120714559) CREATININE (test code = 1.47 mg/dL 0.60-1.25 H 8066485456) CALCIUM (test code = 7.9 mg/dL 8.6-10.6 L 9674996870) eGFR (test code = mL/min/1.73m2 7842427408) JUAN LUIS (test code = JUAN LUIS) [...] tests). Lab Interpretation Abnormal (test code = 94218-2) [facility] GLUCOSE (AUTOMATED)2020-11-01 05:17:31 Test Item Value Reference Range Interpretation Comments POCT GLU (test code = 3882884066) 137 mg/dL 70-110 H Lab Interpretation (test code = Abnormal 49951-1) [facility] GLUCOSE (AUTOMATED)2020-11-01 02:27:59 Test Item Value Reference Range Interpretation Comments POCT GLU (test code = 4389425569) 129 mg/dL 70-110 H Lab Interpretation (test code = Abnormal 54905-1) [facility] STROKE BRAIN WO [id number] 01:52:27 Within confines of motion degradation, no acute intracranial abnormality. EXAMINATION: MR STROKE BRAIN WO CONTRAST HISTORY: Neuro deficit, acute, stroke suspected COMPARISON: ?10/28/20 CT. TECHNIQUE: Stroke protocol Multiplanar and multisequence MRI imaging of thebrain was obtained without contrast. Motion reduction sequences performed. 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.No definite [...] intracranial abnormality.[facility] STROKE BRAIN WO [id number] 01:52:27 Within confines of motion degradation, no [...] intracranial abnormality.[facility] STROKE BRAIN WO [id number] 01:52:27 Within confines of motion degradation, no [...] confines of motion degradation, no acute intracranial abnormality.[facility] GLUCOSE (AUTOMATED)2020-10-31 23:28:12 Test Item Value Reference Range Interpretation Comments POCT GLU (test code = 4572586590) 194 mg/dL 70-110 H Lab Interpretation (test code = Abnormal 65352-1) [facility] GLUCOSE (AUTOMATED)2020-10-31 16:44:35 Test Item Value Reference Range Interpretation Comments POCT GLU (test code = 5671377325) 230 mg/dL 70-110 H Lab Interpretation (test code = Abnormal 70191-0) [facility] [id number] 13:11:08EXAM: XR CHEST 1 VW HISTORY: SOB [...] The upper lungs are slightlycongested but otherwise clear.[facility] 1 [id number] 13:11:08EXAM: XR CHEST 1 VW HISTORY: SOB [...] The upper lungs are slightlycongested but otherwise clear.[facility]2020-10-31 12:52:48 Test Item Value Reference Range Interpretation Comments POCT GLU (test code = 2318120834) 285 mg/dL 70-110 H Lab Interpretation (test code = Abnormal 10962-8) [facility] - 30 minutes after transfusion of each [id number] 11:57:20 Test Item Value Reference Range Interpretation Comments WBC (test code = See_Comment H [Automated message] 6690-2) The system [employer] generated this result transmitted ref erence range: 4.20 - 1 0.70 10*3/?L. The reference range was not used to int erpret this result as normal/abnormal . RBC (test code = 789-8) See_Comment L [Au tomated message] The system [employer] generated this result transmitted ref erence range: [...] See_Comment L [Au tomated message] The system [employer] generated this result transmitted ref erence range: 150 - 32 8 10*3/?L. The reference range was not used to int erpret this result as normal/abnormal . MPV (test code = Not Measure d 37057-9) RDW-CV (test code = 22.4 % 12.1-15.4 H 788-0) RDW-SD (test code = 61.0 fL 38.5-51.6 H 19113-1) NRBC x10^3 (test code = See_Comment [Au tomated message] 3937641595) The system [employer] generated this result transmitted ref erence range: 10*3/?L. The reference range was not used to int erpret this result as normal/abnormal . NRBC/100 WBC (test code See_Comment [Au tomated message] = 9511666536) The system [employer] generated this result transmitted ref erence range: 0.0 - 10 .0 /100 WBCs. The reference range was not used to int erpret this result as normal/abnormal . IPF % (test code = 6.6 % 1.2-10.7 Platelet count 6960780839) measured by fluorescence me thod. Lab Interpretation Abnormal (test code = 52234-3) [facility] Packed RBC (in units), 1 Units 2020-10-31 06:44:13 Test Item Value Reference Range Interpretation Comments Cross Match Result Compatible (test code = 4409) ISBT Blood Type Code (test code = 831748) Unit Blood Type (test A Pos code = 4410) Unit Number (test [id number] code = 4411) Blood Expiration Date & Time (test code = 138211) Status Information Issued (test code = 4412) Product Red Blood Cells Identification (test code = 4413) Product Code (test [id number] Performed at [facility] code = 4414) Laboratory Services - [facility] Blood [address] [place] [address]Qhwh Free: [phone] A No. [id number] [facility] Packed RBC (in units), 1 Units 2020-10-31 06:44:13 Test Item Value Reference Range Interpretation Comments Cross Match Result Compatible (test code = 4409) ISBT Blood Type Code (test code = 374249) Unit Blood Type (test A Pos code = 4410) Unit Number (test [id number] code = 4411) Blood Expiration Date & Time (test code = 389694) Status Information Issued (test code = 4412) Product Red Blood Cells Identification (test code = 4413) Product Code (test Q7588E82 Performed at [facility] code = 4414) Laboratory Services [facility] Blood [address] [address]Tfoj Free: [phone] A No. [id number] [facility] Packed RBC (in units), 1 Units 2020-10-31 06:44:13 Test Item Value Reference Range Interpretation Comments Cross Match Result Compatible (test code = 4409) ISBT Blood Type Code (test code = 555750) Unit Blood Type (test A Pos code = 4410) Unit Number (test [id number] code = 4411) Blood Expiration Date & Time (test code = 087904) Status Information Issued (test code = 4412) Product Red Blood Cells Identification (test code = 4413) Product Code (test I4541H58 Performed at [facility] code = 4414) Laboratory [facility] Blood [address] [address]Peif Free: [phone] A No. [id number] [facility] - ONCE [id number] 06:28:19 Test Item Value Reference Range Interpretation Comments ABO & RH (test code A POSITIVE Performe d at [facility] = 20) Laboratory Serv [facility] Blood [address] s [address]Hssc Free: [phone] A No. [id number] IAT (test code = Negative Performed a t [facility] 1185) Laboratory Serv [facility] Blood [address] [address]Wcxf Free: [phone] A No. [id number] [facility] and Screen - ONCE [id number] 06:28:19 Test Item Value Reference Range Interpretation Comments ABO & RH (test code A POSITIVE Performe d at [facility] = 20) Laboratory [facility] Blood Bank[address] [place] [address] s [address]Tevm Free: [phone] A No. [id number] IAT (test code = Negative Performed a t [facility] 1185) Laboratory [facility] Blood [address] [address]Ybnu Free: [phone] A No. [id number] [facility] and Screen - ONCE [id number] 06:28:19 Test Item Value Reference Range Interpretation Comments ABO & RH (test code A POSITIVE Performe d at [facility] = 20) Laboratory [facility] Blood [address] [address]Fwtp Free: [phone] A No. [id number] IAT (test code = Negative Performed a t [facility] 1185) Laboratory [facility] Blood [address] [address]Frtm Free: [phone] A No. [id number] [facility]2020-10-31 05:36:57 Test Item Value Reference Range Interpretation Comments POCT GLU (test code = 4097893351) 242 mg/dL 70-110 H Lab Interpretation (test code = Abnormal 64135-1) [facility] 05:07:27 Test Item Value Reference Range Interpretation Comments MAGNESIUM (test code = 8382476120) 2.5 mg/dL 1.7-2.4 H Lab Interpretation (test code = Abnormal 88069-0) [facility] WITH [id number] 04:57:09 Test Item Value Reference Range Interpretation [...] (test code = 60.2 fL 38.5-51.6 H 47534-8) RDW-CV (test code = 22.7 % 12.1-15.4 H 788-0) PLT (test code = See_Comment L [Automated 777-3) message] The sy stem which generated this result transmitted reference range : 150 - 328 10*3/ ?L. The reference r christine was not used to interpret this result as normal/abnormal . MPV (test code = Not Measure d 55971-3) IPF % (test code = 3.4 % 1.2-10.7 Platelet count 1970822057) measured by fluorescence method. NRBC/100 WBC (test See_Comment [Automat ed code = 6892661452) message] The system which generated this result transmitted reference range : 0.0 - 10.0 /100 WBCs. The refer ence range was not u sed to interpret th is result as normal/abnormal . NRBC x10^3 (test code <0.01 See_Comment [Auto mated = 4170327973) message] The s ystem which generated this result transmitted reference range : 10*3/?L. The reference range was not used to interpret this result as normal/abnormal . GRAN MAT (NEUT) % 82.8 % (test code = 770-8) IMM GRAN % (test code 1.10 % = 3361249841) LYMPH % (test code = 7.8 % 736-9) MONO % (test code = 7.0 % 5905-5) EOS % (test code = 1.2 % 713-8) BASO % (test code = 0.1 % 706-2) GRAN MAT x10^3(ANC) 11.75 10*3/uL 1.99-6.95 H (test code = 8536909951) IMM GRAN x10^3 (test 0.16 10*3/uL 0.00-0.06 H code = 3040806643) LYMPH x10^3 (test 1.10 10*3/uL 1.09-3.23 code = 731-0) MONO x10^3 (test code 0.99 10*3/uL 0.36-1.02 = 742-7) EOS x10^3 (test code 0.17 10*3/uL 0.06-0.53 = 711-2) BASO x10^3 (test code <0.03 0.01-0.09 = 704-7) SCHISTOCYTES (test 1+ A code = 800-3) Lab Interpretation Abnormal (test code = 69582-2) [facility] (for use with Heparin Drip)2020-10-31 04:49:42 Test Item Value Reference Range Interpretation Comments APTT Patient (test code See_Comment H [Au tomated message] = 3173-2) The system [employer] generated this result transmitted ref erence range: 26 - 36 Seconds. The reference range was not used to int erpret this result as normal/abnormal . Lab Interpretation (test Abnormal code = 97005-3) [facility] (for use with Heparin Drip)2020-10-31 04:49:42 Test Item Value Reference Range Interpretation Comments APTT Patient (test code See_Comment H [Au tomated message] = 3173-2) The system [employer] generated this result transmitted ref erence range: 26 - 36 Seconds. The reference range was not used to int erpret this result as normal/abnormal . Lab Interpretation (test Abnormal code = 59458-2) [facility] (for use with Heparin Drip)2020-10-31 04:49:42 Test Item Value Reference Range Interpretation Comments APTT Patient (test code See_Comment H [Au tomated message] = 3173-2) The system [employer] generated this result transmitted ref erence range: 26 - 36 Seconds. The reference range was not used to int erpret this result as normal/abnormal . Lab Interpretation (test Abnormal code = 41335-2) [facility] METABOLIC PANEL (NA, K, CL, CO2, GLUCOSE, BUN, CREATININE, CA)2020-10-31 04:34:49 Test Item Value Reference Range Interpretation Comments NA (test code = 151 mmol/L 135-145 H 6522493450) K (test code = 3.9 mmol/L 3.5-5.0 8118846170) CL (test code = 124 mmol/L 98-108 H 4880812334) CO2 TOTAL (test code = 22 mmol/L 23-31 L 1274357972) AGAP (test code = 2-16 0216637057) BUN (test code = 52 mg/dL 7-23 H 5734285855) GLUCOSE (test code = 212 mg/dL 70-110 H 0918313586) CREATININE (test code = 1.44 mg/dL 0.60-1.25 H 3564461122) CALCIUM (test code = 8.0 mg/dL 8.6-10.6 L 7500219594) eGFR (test code = mL/min/1.73m2 3141153544) JUAN LUIS (test code = JUAN LUIS) [...] tests). Lab Interpretation Abnormal (test code = 04912-0) [facility] GLUCOSE (AUTOMATED)2020-10-31 01:46:55 Test Item Value Reference Range Interpretation Comments POCT GLU (test code = 9372911647) 259 mg/dL 70-110 H Lab Interpretation (test code = Abnormal 40167-1) [facility] GLUCOSE (AUTOMATED)2020-10-30 22:14:20 Test Item Value Reference Range Interpretation Comments POCT GLU (test code = 8596687502) 317 mg/dL 70-110 H Lab Interpretation (test code = Abnormal 02829-7) [facility] 20:38:02 Test Item Value Reference Range Interpretation Comments MAGNESIUM (test code = 4381005238) 2.4 mg/dL 1.7-2.4 Lab Interpretation (test code = Normal 76061-1) [facility] GLUCOSE (AUTOMATED)2020-10-30 19:46:18 Test Item Value Reference Range Interpretation Comments POCT GLU (test code = 8991415444) 374 mg/dL 70-110 H Lab Interpretation (test code = Abnormal 42958-6) [facility]2020-10-30 17:27:09 Test Item Value Reference Range Interpretation Comments APTT Patient (test code See_Comment H [Au tomated message] = 3173-2) The system [employer] generated this result transmitted ref erence range: 26 - 36 Seconds. The reference range was not used to int erpret this result as normal/abnormal . Lab Interpretation (test Abnormal code = 88033-1) [facility] GLUCOSE (AUTOMATED)2020-10-30 17:07:11 Test Item Value Reference Range Interpretation Comments POCT GLU (test code = 3654630392) 368 mg/dL 70-110 H Lab Interpretation (test code = Abnormal 87207-0) [facility] METABOLIC PANEL (NA, K, CL, CO2, GLUCOSE, BUN, CREATININE, CA)2020-10-30 14:34:56 Test Item Value Reference Range Interpretation Comments NA (test code = 148 mmol/L 135-145 H 9369261928) K (test code = 4.1 mmol/L 3.5-5.0 3314262088) CL (test code = 122 mmol/L 98-108 H 8409865893) CO2 TOTAL (test code = 20 mmol/L 23-31 L 4903551753) AGAP (test code = 2-16 9478269347) BUN (test code = 51 mg/dL 7-23 H 0917529367) GLUCOSE (test code = 343 mg/dL 70-110 H 3261035034) CREATININE (test code = 1.43 mg/dL 0.60-1.25 H 6197427311) CALCIUM (test code = 8.1 mg/dL 8.6-10.6 L 2428710797) eGFR (test code = mL/min/1.73m2 4895540337) JUAN LUIS (test code = JUAN LUIS) [...] tests). Lab Interpretation Abnormal (test code = 87120-9) [facility] WITHOUT [id number] 14:10:28 Test Item Value Reference Range Interpretation Comments WBC (test code = See_Comment H [Automated message] 6690-2) The system [employer] generated this result transmitted ref erence range: 4.20 - 1 0.70 10*3/?L. The reference range was not used to int erpret this result as normal/abnormal . RBC (test code = 789-8) See_Comment L [Au tomated message] The system [employer] generated this result transmitted ref erence range: [...] See_Comment L [Au tomated message] The system [employer] generated this result transmitted ref erence range: 150 - 32 8 10*3/?L. The reference range was not used to int erpret this result as normal/abnormal . MPV (test code = Not Measure d 16091-8) RDW-CV (test code = 22.8 % 12.1-15.4 H 788-0) RDW-SD (test code = 60.3 fL 38.5-51.6 H 31347-9) NRBC x10^3 (test code = <0.01 See_Comment [Au tomated message] 4980973210) The system [employer] generated this result transmitted ref erence range: 10*3/?L. The reference range was not used to int erpret this result as normal/abnormal . NRBC/100 WBC (test code See_Comment [Au tomated message] = 7760244060) The system [employer] generated this result transmitted ref erence range: 0.0 - 10 .0 /100 WBCs. The reference range was not used to int erpret this result as normal/abnormal . IPF % (test code = 3.9 % 1.2-10.7 Platelet count 7134924463) measured by fluorescence me thod. Lab Interpretation Abnormal (test code = 36798-7) [facility] GLUCOSE (AUTOMATED)2020-10-30 12:43:30 Test Item Value Reference Range Interpretation Comments POCT GLU (test code = 9926250135) 350 mg/dL 70-110 H Lab Interpretation (test code = Abnormal 21626-4) [facility] GLUCOSE (AUTOMATED)2020-10-30 09:35:03 Test Item Value Reference Range Interpretation Comments POCT GLU (test code = 3838768485) 302 mg/dL 70-110 H Lab Interpretation (test code = Abnormal 66204-8) [facility] GLUCOSE (AUTOMATED)2020-10-30 06:24:42 Test Item Value Reference Range Interpretation Comments POCT GLU (test code = 1968208570) 280 mg/dL 70-110 H Lab Interpretation (test code = Abnormal 92398-3) [facility] WITH [id number] 06:22:16 Test Item Value Reference Range Interpretation Comments WBC (test code = See_Comment H [Automated 0890-2) message] The sy stem which generated this result transmitted reference range : 4.20 - 10.70 10*3/?L. The reference range was not used to interpret this result as normal/abnormal . RBC (test code = See_Comment L [Automated 949-8) message] The sy stem which generated this [...] (test code = 60.6 fL 38.5-51.6 H 94868-4) RDW-CV (test code = 22.7 % 12.1-15.4 H 788-0) PLT (test code = See_Comment L [Automated 777-3) message] The sy stem which generated this result transmitted reference range : 150 - 328 10*3/ ?L. The reference r christine was not used to interpret this result as normal/abnormal . MPV (test code = 12.3 fL 9.8-13.0 07573-5) IPF % (test code = 2.3 % 1.2-10.7 Platelet count 2471319737) measured by fluorescence method. NRBC/100 WBC (test See_Comment [Automat ed code = 9294316152) message] The system which generated this result transmitted reference range : 0.0 - 10.0 /100 WBCs. The refer ence range was not u sed to interpret th is result as normal/abnormal . NRBC x10^3 (test code <0.01 See_Comment [Auto mated = 7285240783) message] The s ystem which generated this result transmitted reference range : 10*3/?L. The reference range was not used to interpret this result as normal/abnormal . GRAN MAT (NEUT) % 83.1 % (test code = 770-8) IMM GRAN % (test code 1.70 % = 0173591147) LYMPH % (test code = 7.7 % 736-9) MONO % (test code = 6.6 % 5905-5) EOS % (test code = 0.6 % 713-8) BASO % (test code = 0.3 % 706-2) GRAN MAT x10^3(ANC) 12.88 10*3/uL 1.99-6.95 H (test code = 6973351009) IMM GRAN x10^3 (test 0.26 10*3/uL 0.00-0.06 H code = 1583169607) LYMPH x10^3 (test 1.19 10*3/uL 1.09-3.23 code [...] 803-7) Lab Interpretation Abnormal (test code = 00046-6) [facility]2020-10-30 05:58:19 Test Item Value Reference Range Interpretation Comments APTT Patient (test code See_Comment H [Au tomated message] = 3173-2) The system [employer] generated this result transmitted ref erence range: 26 - 36 Seconds. The reference range was not used to int erpret this result as normal/abnormal . Lab Interpretation (test Abnormal code = 02343-1) [facility] (NA, K, CL, CO2, GLUCOSE, BUN, CREATININE, CA)2020-10-30 05:54:18 Test Item Value Reference Range Interpretation Comments NA (test code = 150 mmol/L 135-145 H 6055761968) K (test code = 3.8 mmol/L 3.5-5.0 1927786946) CL (test code = 122 mmol/L 98-108 H 4756078798) CO2 TOTAL (test code = 20 mmol/L 23-31 L 5162382432) AGAP (test code = 2-16 1137352759) BUN (test code = 49 mg/dL 7-23 H 0560914541) GLUCOSE (test code = 261 mg/dL 70-110 H 9389891935) CREATININE (test code = 1.40 mg/dL 0.60-1.25 H 5455498753) CALCIUM (test code = 8.2 mg/dL 8.6-10.6 L 0075673556) eGFR (test code = mL/min/1.73m2 2207936208) JUAN LUIS (test code = JUAN LUIS) [...] tests). Lab Interpretation Abnormal (test code = 51071-9) [facility] 05:53:53 Test Item Value Reference Range Interpretation Comments MAGNESIUM (test code = 4845673337) 2.5 mg/dL 1.7-2.4 H Lab Interpretation (test code = Abnormal 20506-8) [facility] 03:26:07 Test Item Value Reference Range Interpretation Comments POCT GLU (test code = 2100831947) 246 mg/dL 70-110 H Lab Interpretation (test code = Abnormal 33297-1) [facility] GLUCOSE (AUTOMATED)2020-10-30 00:46:09 Test Item Value Reference Range Interpretation Comments POCT GLU (test code = 5676013590) 238 mg/dL 70-110 H Lab Interpretation (test code = Abnormal 23552-3) [facility] with [facility] Drip[facility]2020-10-29 23:13:49 Test Item Value Reference Range Interpretation Comments APTT Patient (test code See_Comment H [Au tomated message] = 3173-2) The system [employer] generated this result transmitted ref erence range: 26 - 36 Seconds. The reference range was not used to int erpret this result as normal/abnormal . Lab Interpretation (test Abnormal code = 69850-1) [facility] GLUCOSE (AUTOMATED)2020-10-29 22:25:56 Test Item Value Reference Range Interpretation Comments POCT GLU (test code = 6240599695) 243 mg/dL 70-110 H Lab Interpretation (test code = Abnormal 67641-4) [facility] 20:59:19 Test Item Value Reference Range Interpretation Comments MAGNESIUM (test code = 3223464679) 2.4 mg/dL 1.7-2.4 Lab Interpretation (test code = Normal 01524-9) [facility] (NA, K, CL, CO2, GLUCOSE, BUN, CREATININE, CA)2020-10-29 20:41:28 Test Item Value Reference Range Interpretation Comments NA (test code = 150 mmol/L 135-145 H 2998046543) K (test code = 4.0 mmol/L 3.5-5.0 8471177156) CL (test code = 123 mmol/L 98-108 H 7751705784) CO2 TOTAL (test code = 19 mmol/L 23-31 L 5221954404) AGAP (test code = 2-16 4372688606) BUN (test code = 49 mg/dL 7-23 H 3050618466) GLUCOSE (test code = 197 mg/dL 70-110 H 5864229429) CREATININE (test code = 1.35 mg/dL 0.60-1.25 H 1588233529) CALCIUM (test code = 8.6 mg/dL 8.6-10.6 4424630130) eGFR (test code = mL/min/1.73m2 0361839372) JUAN LUIS (test code = JUAN LUIS) [...] tests). Lab Interpretation Abnormal (test code = 66838-6) [facility] GLUCOSE (AUTOMATED)2020-10-29 19:13:21 Test Item Value Reference Range Interpretation Comments POCT GLU (test code = 3484545652) 196 mg/dL 70-110 H Lab Interpretation (test code = Abnormal 17903-6) [facility] GLUCOSE (AUTOMATED)2020-10-29 16:28:35 Test Item Value Reference Range Interpretation Comments POCT GLU (test code = 6740943436) 192 mg/dL 70-110 H Lab Interpretation (test code = Abnormal 08834-2) [facility] MSSA Screen by Britney [id number] 16:25:18 Test Item Value Reference Range Interpretation Comments MSSA Screen by PCR, Nares (test code Negative Negative = 49605-0) MRSA/MSSA Positive? (test code = No No 0890328837) Lab Interpretation (test code = Normal 22809-5) [facility]A [facility] by PCR, [id number] 16:25:18 Test Item Value Reference Range Interpretation Comments MSSA Screen by PCR, Nares (test code Negative Negative = 85834-3) MRSA/MSSA Positive? (test code = No No 3731334016) Lab Interpretation (test code = Normal 47056-6) [facility] MSSA Screen by PCR, [id number] 16:25:18 Test Item Value Reference Range Interpretation Comments MSSA Screen by PCR, Nares (test code Negative Negative = 45645-8) MRSA/MSSA Positive? (test code = No No 6379993297) Lab Interpretation (test code = Normal 81410-8) [facility] [id number] 16:18:19 Test Item Value Reference Range Interpretation Comments TROPONIN I (test 0.397 ng/mL See_Comment H [Automated code = 2772041325) message] The system which generated this result [...] ? Lab Interpretation Abnormal (test code = 63054-9) [facility] [id number] 16:18:19 Test Item Value Reference Range Interpretation Comments TROPONIN I (test 0.397 ng/mL See_Comment H [Automated code = 9048871705) message] The system which generated this result [...] ? Lab Interpretation Abnormal (test code = 17248-6) [facility] [id number] 16:18:19 Test Item Value Reference Range Interpretation Comments TROPONIN I (test 0.397 ng/mL See_Comment H [Automated code = 7012604018) message] The system which generated this result [...] ? Lab Interpretation Abnormal (test code = 70654-2) [facility] METABOLIC PANEL (NA, K, CL, CO2, GLUCOSE, BUN, CREATININE, CA)2020-10-29 16:17:03 Test Item Value Reference Range Interpretation Comments NA (test code = 152 mmol/L 135-145 H 2808933930) K (test code = 4.2 mmol/L 3.5-5.0 4102304430) CL (test code = 124 mmol/L 98-108 H 8422124268) CO2 TOTAL (test code = 21 mmol/L 23-31 L 3041960869) AGAP (test code = 2-16 2409030692) BUN (test code = 49 mg/dL 7-23 H 9615898998) GLUCOSE (test code = 173 mg/dL 70-110 H 9655181309) CREATININE (test code = 1.34 mg/dL 0.60-1.25 H 4576900093) CALCIUM (test code = 8.8 mg/dL 8.6-10.6 2102709671) eGFR (test code = mL/min/1.73m2 9927133140) JUAN LUIS (test code = JUAN LUIS) [...] tests). Lab Interpretation Abnormal (test code = 95449-9) [facility] 15:37:55 Test Item Value Reference Range Interpretation Comments APTT Patient (test code See_Comment L [Au tomated message] = 3173-2) The system [employer] generated this result transmitted ref erence range: 26 - 36 Seconds. The reference range was not used to int erpret this result as normal/abnormal . Lab Interpretation (test Abnormal code = 88167-4) [facility] [id number] 14:00:01 Test Item Value Reference Range Interpretation Comments URINE CULTURE (test No aerobic growth (< code = 630-4) 1000 CFU/mL) [facility]2020-10-29 12:55:31 Test Item Value Reference Range Interpretation Comments POCT GLU (test code = 7976030746) 185 mg/dL 70-110 H Lab Interpretation (test code = Abnormal 76447-4) [facility] BONE [id number] 11:47:44 Metallic linear foreign body over the [...] left ring finger metacarpalconsidered safe for MR imaging.[facility] BONE [id number] 11:47:44 Metallic linear foreign body over the [...] left ring finger metacarpalconsidered safe for MR imaging.[facility] BONE [id number] 11:47:44 Metallic linear foreign body over the [...] left ring finger metacarpalconsidered safe for MR imaging.[facility]AllenBRADY [id number] 08:59:20 Test Item Value Reference Range Interpretation Comments TROPONIN I (test 0.426 ng/mL See_Comment H [Automated code = 7977979143) message] The system which generated this result [...] ? Lab Interpretation Abnormal (test code = 65988-9) [facility] WITH [id number] 08:54:03 Test Item Value Reference Range Interpretation [...] (test code = 59.0 fL 38.5-51.6 H 01762-1) RDW-CV (test code = 22.5 % 12.1-15.4 H 788-0) PLT (test code = See_Comment L [Automated 777-3) message] The sy stem which generated this result transmitted reference range : 150 - 328 10*3/ ?L. The reference r christine was not used to interpret this result as normal/abnormal . MPV (test code = 11.2 fL 9.8-13.0 06116-0) IPF % (test code = 2.4 % 1.2-10.7 Platelet count 1825153324) measured by fluorescence method. NRBC/100 WBC (test See_Comment [Automat ed code = 6137509530) message] The system which generated this result transmitted reference range : 0.0 - 10.0 /100 WBCs. The refer ence range was not u sed to interpret th is result as normal/abnormal . NRBC x10^3 (test code <0.01 See_Comment [Auto mated = 5778385230) message] The s ystem which generated this result transmitted reference range : 10*3/?L. The reference range was not used to interpret this result as normal/abnormal . GRAN MAT (NEUT) % 76.4 % (test code = 770-8) IMM GRAN % (test code 3.00 % = 5877080899) LYMPH % (test code = 10.3 % 736-9) MONO % (test code = 9.1 % 5905-5) EOS % (test code = 0.8 % 713-8) BASO % (test code = 0.4 % 706-2) GRAN MAT x10^3(ANC) 9.02 10*3/uL 1.99-6.95 H (test code = 9397515836) IMM GRAN x10^3 (test 0.36 10*3/uL 0.00-0.06 H code = 3589784097) LYMPH x10^3 (test code 1.22 10*3/uL 1.09-3.23 = 731-0) MONO x10^3 (test code 1.08 10*3/uL 0.36-1.02 H = 742-7) EOS x10^3 (test code = 0.10 10*3/uL 0.06-0.53 711-2) BASO x10^3 (test code 0.05 10*3/uL 0.01-0.09 = 704-7) SCHISTOCYTES (test 1+ A code = 800-3) Lab Interpretation Abnormal (test code = 39096-2) [facility] METABOLIC PANEL (NA, K, CL, CO2, GLUCOSE, BUN, CREATININE, CA)2020-10-29 08:46:24 Test Item Value Reference Range Interpretation Comments NA (test code = 155 mmol/L 135-145 H 8184206101) K (test code = 4.4 mmol/L 3.5-5.0 2738246662) CL (test code = 126 mmol/L 98-108 H 8771593817) CO2 TOTAL (test code = 22 mmol/L 23-31 L 5716151989) AGAP (test code = 2-16 5842979375) BUN (test code = 50 mg/dL 7-23 H 5218516304) GLUCOSE (test code = 177 mg/dL 70-110 H 3089752318) CREATININE (test code = 1.29 mg/dL 0.60-1.25 H 5469681295) CALCIUM (test code = 8.6 mg/dL 8.6-10.6 7820994678) eGFR (test code = mL/min/1.73m2 2365863778) JUAN LUIS (test code = JUAN LUIS) [...] tests). Lab Interpretation Abnormal (test code = 03707-5) [facility]2020-[facility]-29 07:10:56 Test Item Value Reference Range Interpretation Comments POCT GLU (test code = 1503597066) 175 mg/dL 70-110 H Lab Interpretation (test code = Abnormal 57948-1) [facility] [id number] 04:16:10 Test Item Value Reference Range Interpretation Comments TROPONIN I (test 0.454 ng/mL See_Comment H [Automated code = 3940484886) message] The system which generated this result [...] ? Lab Interpretation Abnormal (test code = 50806-7) [facility] WITH [id number] 04:14:28 Test Item Value Reference Range Interpretation [...] (test code = 57.0 fL 38.5-51.6 H 70179-8) RDW-CV (test code = 22.1 % 12.1-15.4 H 788-0) PLT (test code = See_Comment L [Automated 777-3) message] The sy stem which generated this result transmitted reference range : 150 - 328 10*3/ ?L. The reference r christine was not used to interpret this result as normal/abnormal . MPV (test code = Not Measure d 30704-2) IPF % (test code = 2.1 % 1.2-10.7 Platelet count 6947648288) measured by fluorescence method. NRBC/100 WBC (test See_Comment [Automat ed code = 3121279136) message] The system which generated this result transmitted reference range : 0.0 - 10.0 /100 WBCs. The refer ence range was not u sed to interpret th is result as normal/abnormal . NRBC x10^3 (test code <0.01 See_Comment [Auto mated = 5562386546) message] The s ystem which generated this result transmitted reference range : 10*3/?L. The reference range was not used to interpret this result as normal/abnormal . GRAN MAT (NEUT) % 74.8 % (test code = 770-8) IMM GRAN % (test code 2.80 % = 9245641484) LYMPH % (test code = 10.9 % 736-9) MONO % (test code = 10.4 % 5905-5) EOS % (test code = 0.7 % 713-8) BASO % (test code = 0.4 % 706-2) GRAN MAT x10^3(ANC) 8.42 10*3/uL 1.99-6.95 H (test code = 2277223830) IMM GRAN x10^3 (test 0.31 10*3/uL 0.00-0.06 H code = 2744019893) LYMPH x10^3 (test code 1.23 10*3/uL 1.09-3.23 = 731-0) MONO x10^3 (test code 1.17 10*3/uL 0.36-1.02 H = 742-7) EOS x10^3 (test code = 0.08 10*3/uL 0.06-0.53 711-2) BASO x10^3 (test code 0.04 10*3/uL 0.01-0.09 = 704-7) BASO STIPPLING (test Present A code = 703-9) SCHISTOCYTES (test 1+ A code = 800-3) Lab Interpretation Abnormal (test code = 12452-0) [facility] METABOLIC PANEL (NA, K, CL, CO2, GLUCOSE, BUN, CREATININE, CA)2020-10-29 04:00:13 Test Item Value Reference Range Interpretation Comments NA (test code = 154 mmol/L 135-145 H 7596962044) K (test code = 3.0 mmol/L 3.5-5.0 L 0564405811) CL (test code = 125 mmol/L 98-108 H 5194347627) CO2 TOTAL (test code = 20 mmol/L 23-31 L 1745165028) AGAP (test code = 2-16 4671028770) BUN (test code = 50 mg/dL 7-23 H 7232003053) GLUCOSE (test code = 144 mg/dL 70-110 H 2904969715) CREATININE (test code = 1.36 mg/dL 0.60-1.25 H 2618784241) CALCIUM (test code = 8.8 mg/dL 8.6-10.6 5992040657) eGFR (test code = mL/min/1.73m2 0530921181) JUAN LUIS (test code = JUAN LUIS) [...] tests). Lab Interpretation Abnormal (test code = 75608-4) [facility] 03:58:47 Test Item Value Reference Range Interpretation Comments MAGNESIUM (test code = 0597729312) 2.5 mg/dL 1.7-2.4 H Lab Interpretation (test code = Abnormal 10763-0) [facility] GLUCOSE (AUTOMATED)2020-10-29 03:58:47 Test Item Value Reference Range Interpretation Comments POCT GLU (test code = 9901735066) 134 mg/dL 70-110 H Lab Interpretation (test code = Abnormal 97309-0) [facility] Test Item Value Reference Range Interpretation Comments Fibrinogen (test code = 0441244618) 441 mg/dL 167-453 Lab Interpretation (test code = Normal 49752-0) [facility] 03:39:08 Test Item Value Reference Range Interpretation Comments Fibrinogen (test code = 2676060843) 441 mg/dL 167-453 Lab Interpretation (test code = Normal 81552-6) [facility]AllenPROT[facility] / [id number] 03:39:08 Test Item Value Reference Range Interpretation [...] tions. Lab Interpretation (test Abnormal code = 58072-4) [facility] 03:39:08 Test Item Value Reference Range Interpretation Comments Fibrinogen (test code = 0447688137) 441 mg/dL 167-453 Lab Interpretation (test code = Normal 55060-7) [facility] + LACTIC [id number] 03:20:11 Test Item Value Reference Range Interpretation Comments PH (test code = 2) 7.35-7.45 H PCO2 (test code = See_Comment L [Automat ed 2160488409) message] The sy stem which generated this result transmitted reference range : 35 - 45 mmHg. The reference range was not used to interpret this result as normal/abnormal . PO2 (test code = See_Comment H [Automated 0007581451) message] The sy stem which generated this result transmitted reference range : 80 - 100 mmHg. The reference range was not used to interpret this result as normal/abnormal . HCO3 (test code = See_Comment [Automate d 4996463150) message] The sy stem which generated this result transmitted reference range : 22 - 26 mEq/L. The reference range was not used to interpret this result as normal/abnormal . BE (test code = See_Comment [Automated 9340971973) message] The sy stem which generated this result transmitted reference range : -3.0 - 3.0 mEq/ L. The reference r christine was not used to interpret this result as normal/abnormal . THB (test code = 9.3 g/dL 13.5-18.0 L 8498702327) %O2HB (test code = 97.5 % 94.0-99.0 3906745111) %COHB ART (test code = 0.3 % 0.0-1.5 2034890450) %METHB ART (test code = 0.3 % 0.4-1.5 L 6049112067) VOL%O2 ART (test code = 12.9 % 15.0-23.0 L 5097253025) NA (test code = 152 mmol/L 135-145 H 4933463998) K+ (test code = 3.0 mmol/L 3.5-5.0 L 8891788174) AC CA IONZ (test code = 5.00 mg/dL 4.50-5.30 4195834034) GLUCOSE (test code = 142 mg/dL 70-110 H 5556959047) LACTIC ACID (test code 1.59 mmol/L 0.50-2.20 = 6009636989) Lab Interpretation Abnormal (test code = 25326-0) [facility] LACTIC [id number] 03:20:11 Test Item Value Reference Range Interpretation Comments PH (test code = 2) 7.35-7.45 H PCO2 (test code = See_Comment L [Automat ed 4504582880) message] The sy stem which generated this result transmitted reference range : 35 - 45 mmHg. The reference range was not used to interpret this result as normal/abnormal . PO2 (test code = See_Comment H [Automated 3766951961) message] The sy stem which generated this result transmitted reference range : 80 - 100 mmHg. The reference range was not used to interpret this result as normal/abnormal . HCO3 (test code = See_Comment [Automate d 6937189048) message] The sy stem which generated this result transmitted reference range : 22 - 26 mEq/L. The reference range was not used to interpret this result as normal/abnormal . BE (test code = See_Comment [Automated 5031759189) message] The sy stem which generated this result transmitted reference range : -3.0 - 3.0 mEq/ L. The reference r christine was not used to interpret this result as normal/abnormal . THB (test code = 9.3 g/dL 13.5-18.0 L 1892337532) %O2HB (test code = 97.5 % 94.0-99.0 0482662849) %COHB ART (test code = 0.3 % 0.0-1.5 1099210049) %METHB ART (test code = 0.3 % 0.4-1.5 L 4200840527) VOL%O2 ART (test code = 12.9 % 15.0-23.0 L 3695761453) NA (test code = 152 mmol/L 135-145 H 8855474117) K+ (test code = 3.0 mmol/L 3.5-5.0 L 2858019268) AC CA IONZ (test code = 5.00 mg/dL 4.50-5.30 8935875188) GLUCOSE (test code = 142 mg/dL 70-110 H 4262288614) LACTIC ACID (test code 1.59 mmol/L 0.50-2.20 = 4443489477) Lab Interpretation Abnormal (test code = 86997-8) [facility] L[facility]IC [id number] 03:20:11 Test Item Value Reference Range Interpretation Comments PH (test code = 2) 7.35-7.45 H PCO2 (test code = See_Comment L [Automat ed 8541429313) message] The sy stem which generated this result transmitted reference range : 35 - 45 mmHg. The reference range was not used to interpret this result as normal/abnormal . PO2 (test code = See_Comment H [Automated 3592024999) message] The sy stem which generated this result transmitted reference range : 80 - 100 mmHg. The reference range was not used to interpret this result as normal/abnormal . HCO3 (test code = See_Comment [Automate d 9698711217) message] The sy stem which generated this result transmitted reference range : 22 - 26 mEq/L. The reference range was not used to interpret this result as normal/abnormal . BE (test code = See_Comment [Automated 1316597870) message] The sy stem which generated this result transmitted reference range : -3.0 - 3.0 mEq/ L. The reference r christine was not used to interpret this result as normal/abnormal . THB (test code = 9.3 g/dL 13.5-18.0 L 3869962738) %O2HB (test code = 97.5 % 94.0-99.0 9136744127) %COHB ART (test code = 0.3 % 0.0-1.5 6649045425) %METHB ART (test code = 0.3 % 0.4-1.5 L 4539193360) VOL%O2 ART (test code = 12.9 % 15.0-23.0 L 2982751253) NA (test code = 152 mmol/L 135-145 H 2242406668) K+ (test code = 3.0 mmol/L 3.5-5.0 L 7405123035) AC CA IONZ (test code = 5.00 mg/dL 4.50-5.30 7805683519) GLUCOSE (test code = 142 mg/dL 70-110 H 8762827273) LACTIC ACID (test code 1.59 mmol/L 0.50-2.20 = 3444190897) Lab Interpretation Abnormal (test code = 19391-6) [facility] [id number] 03:20:06 No acute intracranial hemorrhage or mass [...] air cells. A nasogastric tube ispartially visualized. [facility], Radiant Results Inft User - 10/28/2020 10:21 [...] reviewed this study and agree with theabove report.[facility] [id number] 03:20:06 No acute intracranial hemorrhage or mass [...] air cells. A nasogastric tube ispartially visualized. [facility], Radiant Results Inft User - 10/28/2020 10:21 [...] reviewed this study and agree with theabove report.[facility] [id number] 03:20:06 No acute intracranial hemorrhage or mass effect. Preliminary Report Dictated by Resident: William Salazar ?MD Omid., have reviewed this study and agree with [...] reviewed this study and agree with theabove report.[facility] GLUCOSE (AUTOMATED) 2020-10-29 01:10:09 Test Item Value Reference Range Interpretation Comments POCT GLU (test code = 2084167825) 178 mg/dL 70-110 H Lab Interpretation (test code = Abnormal 27999-1) [facility] GLUCOSE (AUTOMATED)2020-10-28 21:43:56 Test Item Value Reference Range Interpretation Comments POCT GLU (test code = 9072058198) 131 mg/dL 70-110 H Lab Interpretation (test code = Abnormal 45907-4) [facility] GLUCOSE (AUTOMATED)2020-10-28 16:37:06 Test Item Value Reference Range Interpretation Comments POCT GLU (test code = 3860874072) 345 mg/dL 70-110 H Lab Interpretation (test code = Abnormal 27672-2) [facility] 1 [id number] 15:26:11EXAM: XR CHEST 1 VW HISTORY: COUGH [...] tube passes through the thorax and into thestomach.[facility] + LACTIC [id number] 13:57:21 Test Item Value Reference Range Interpretation Comments PH (test code = 2) 7.35-7.45 H PCO2 (test code = See_Comment L [Automat ed 9663678033) message] The sy stem which generated this result transmitted reference range : 35 - 45 mmHg. The reference range was not used to interpret this result as normal/abnormal . PO2 (test code = See_Comment L [Automated 1646690033) message] The sy stem which generated this result transmitted reference range : 80 - 100 mmHg. The reference range was not used to interpret this result as normal/abnormal . HCO3 (test code = See_Comment L [Automate d 5773738660) message] The sy stem which generated this result transmitted reference range : 22 - 26 mEq/L. The reference range was not used to interpret this result as normal/abnormal . BE (test code = See_Comment L [Automated 5842751189) message] The sy stem which generated this result transmitted reference range : -3.0 - 3.0 mEq/ L. The reference r christine was not used to interpret this result as normal/abnormal . THB (test code = 10.2 g/dL 13.5-18.0 L 1220629789) %O2HB (test code = 89.8 % 94.0-99.0 L 7132011684) %COHB ART (test code = 0.3 % 0.0-1.5 8275889570) %METHB ART (test code = 0.3 % 0.4-1.5 L 7966273421) VOL%O2 ART (test code = 12.9 % 15.0-23.0 L 7046916550) NA (test code = 151 mmol/L 135-145 H 9465687615) K+ (test code = 3.7 mmol/L 3.5-5.0 9311050688) AC CA IONZ (test code = 5.10 mg/dL 4.50-5.30 0324423323) GLUCOSE (test code = 359 mg/dL 70-110 H 0936485907) LACTIC ACID (test code 1.43 mmol/L 0.50-2.20 = 2018233892) Lab Interpretation Abnormal (test code = 97136-2) [facility] GLUCOSE (AUTOMATED)2020-10-28 13:45:52 Test Item Value Reference Range Interpretation Comments POCT GLU (test code = 5536364893) 355 mg/dL 70-110 H Lab Interpretation (test code = Abnormal 24639-2) [facility] GLUCOSE (AUTOMATED)2020-10-28 13:18:15 Test Item Value Reference Range Interpretation Comments POCT GLU (test code = 5454412589) 322 mg/dL 70-110 H Lab Interpretation (test code = Abnormal 18743-5) [facility] GLUCOSE (AUTOMATED)2020-10-28 10:42:20 Test Item Value Reference Range Interpretation Comments POCT GLU (test code = 4015405508) 303 mg/dL 70-110 H Lab Interpretation (test code = Abnormal 29106-6) [facility] [id number] 08:53:59 Test Item Value Reference Range Interpretation Comments TROPONIN I (test 0.352 ng/mL See_Comment H [Automated code = 6052321938) message] The system which generated this result [...] ? Lab Interpretation Abnormal (test code = 54495-1) [facility] (NA, K, CL, CO2, GLUCOSE, BUN, CREATININE, CA)2020-10-28 08:42:28 Test Item Value Reference Range Interpretation Comments NA (test code = 151 mmol/L 135-145 H 8999526807) K (test code = 3.6 mmol/L 3.5-5.0 4901520351) CL (test code = 125 mmol/L 98-108 H 9012273589) CO2 TOTAL (test code = 20 mmol/L 23-31 L 4652383232) AGAP (test code = 2-16 3920733268) BUN (test code = 50 mg/dL 7-23 H 2768381999) GLUCOSE (test code = 303 mg/dL 70-110 H 2092625118) CREATININE (test code = 1.25 mg/dL 0.60-1.25 3344766744) CALCIUM (test code = 9.1 mg/dL 8.6-10.6 6541547080) eGFR (test code = mL/min/1.73m2 0057978015) JUAN LUIS (test code = JUAN LUIS) [...] tests). Lab Interpretation Abnormal (test code = 13052-5) [facility] WITHOUT [id number] 08:18:28 Test Item Value Reference Range Interpretation Comments WBC (test code = See_Comment [Automated message] 6690-2) The system [employer] generated this result transmitted ref erence range: 4.20 - 1 0.70 10*3/?L. The reference range was not used to int erpret this result as normal/abnormal . RBC (test code = 789-8) See_Comment L [Au tomated message] The system [employer] generated this result transmitted ref erence range: [...] 777-3) See_Comment [Au tomated message] The system [employer] generated this result transmitted ref erence range: 150 - 32 8 10*3/?L. The reference range was not used to int erpret this result as normal/abnormal . MPV (test code = 12.0 fL 9.8-13.0 19142-2) RDW-CV (test code = 22.0 % 12.1-15.4 H 788-0) RDW-SD (test code = 56.7 fL 38.5-51.6 H 17868-6) NRBC x10^3 (test code = <0.01 See_Comment [Au tomated message] 9070173761) The system [employer] generated this result transmitted ref erence range: 10*3/?L. The reference range was not used to int erpret this result as normal/abnormal . NRBC/100 WBC (test code See_Comment [Au tomated message] = 7968878103) The system [employer] generated this result transmitted ref erence range: 0.0 - 10 .0 /100 WBCs. The reference range was not used to int erpret this result as normal/abnormal . IPF % (test code = 1.6 % 1.2-10.7 Platelet count 6809169181) measured by fluorescence me thod. Lab Interpretation Abnormal (test code = 97600-2) [facility] GLUCOSE (AUTOMATED)2020-10-28 07:38:54 Test Item Value Reference Range Interpretation Comments POCT GLU (test code = 1806250888) 302 mg/dL 70-110 H Lab Interpretation (test code = Abnormal 04066-6) [facility] GLUCOSE (AUTOMATED)2020-10-28 04:16:52 Test Item Value Reference Range Interpretation Comments POCT GLU (test code = 9159758317) 306 mg/dL 70-110 H Lab Interpretation (test code = Abnormal 68118-0) [facility] CULTURE [id number] 03:01:27 Test Item Value Reference Range Interpretation Comments Blood Culture-Aerobic No organisms No growth Previo us (test code = 51875-6) isolated prelim inary verified result was Culture [...] Culture-Anaerobic isolated preliminar y (test code = 60109-9) verifi ed result was Culture In Progress [...] CDT Lab Interpretation Normal (test code = 66880-4) [facility] CULTURE [id number] 03:01:27 Test Item Value Reference Range Interpretation Comments Blood Culture-Aerobic No organisms No growth Previo us (test code = 08303-9) isolated prelim inary verified result was Culture [...] Culture-Anaerobic isolated preliminar y (test code = 33889-8) verifi ed result was Culture In Progress on 10/23/2020 at 07 15 CDTPrevious preliminary verified result was No growth a t 24 hours on 10/23/2020 at 22 CDTPrevious preliminary verified result was No growth a t 48 hours on 10/24/2020 at 05 08 CDTPrevious preliminary verified result was No growth a t 72 hours on 10/25/2020 at 22 02 CDT Lab Interpretation Normal (test code = 17580-6) [id number] 02:04:19 Test Item Value Reference Range Interpretation Comments TROPONIN I (test 0.236 ng/mL See_Comment H [Automated code = 2308509379) message] The system which generated this result transmitted reference range : <=0.034. The reference range was not used to interpret this result as normal/abnormal . JUAN LUIS (test code = Equal or Less than JUNA LUIS) 0.034 ng/ml---Normal ?Note: Cardiac troponin begins [...] ? Lab Interpretation Abnormal (test code = 23844-9) [facility]2020-10-28 01:29:26 Test Item Value Reference Range Interpretation Comments POCT GLU (test code = 8466723662) 262 mg/dL 70-110 H Lab Interpretation (test code = Abnormal 92804-3) [facility] (NA, K, CL, CO2, GLUCOSE, BUN, CREATININE, CA)2020-10-27 22:22:07 Test Item Value Reference Range Interpretation Comments NA (test code = 151 mmol/L 135-145 H 8140862448) K (test code = 3.2 mmol/L 3.5-5.0 L 6836536732) CL (test code = 124 mmol/L 98-108 H 9939709778) CO2 TOTAL (test code = 20 mmol/L 23-31 L 7486857814) AGAP (test code = 2-16 7359908427) BUN (test code = 49 mg/dL 7-23 H 1053007691) GLUCOSE (test code = 271 mg/dL 70-110 H 4585790642) CREATININE (test code = 1.24 mg/dL 0.60-1.25 0265061527) CALCIUM (test code = 8.7 mg/dL 8.6-10.6 8038400324) eGFR (test code = mL/min/1.73m2 0607625326) JUAN LUIS (test code = JUAN LUIS) [...] tests). Lab Interpretation Abnormal (test code = 40675-9) [facility] GLUCOSE (AUTOMATED)2020-10-27 21:31:54 Test Item Value Reference Range Interpretation Comments POCT GLU (test code = 5005370148) 308 mg/dL 70-110 H Lab Interpretation (test code = Abnormal 75171-3) [facility] GLUCOSE (AUTOMATED)2020-10-27 19:14:20 Test Item Value Reference Range Interpretation Comments POCT GLU (test code = 9536088938) 281 mg/dL 70-110 H Lab Interpretation (test code = Abnormal 87922-0) [facility] GLUCOSE (AUTOMATED)2020-10-27 16:11:09 Test Item Value Reference Range Interpretation Comments POCT GLU (test code = 9587171353) 278 mg/dL 70-110 H Lab Interpretation (test code = Abnormal 45737-4) [facility] - To confirm Dobhoff / [...] the abdomen and pelvis were obtained. [facility], Radiant Results [employer] User - 10/27/2020 [...] reviewed this study and agree with theabove report.[facility] Abdominal 1 View - To confirm Dobhoff [...] the abdomen and pelvis were obtained. [facility] - 10/27/2020 10:25 AM CDTEXAM: XR ABDOMEN 1 VWHISTORY: 65 years-old Male presenting with confirm tube placement COMPARISON: Multiple abdomen radiographs with the most recent for 10/22/2020TECHNIQUE: Frontal viewsof the abdomen and pelvis were obtained.IMPRESSIONFINDINGS / IMPRESSION:The Dobbhoff tube tip and sidehole terminates at the gastric body.Preliminary Report Dictated by Resident: Raza Stovall MD., have reviewed this study and agree with theabove report.[facility] - To confirm Dobhoff / [...] reviewed this study and agree with theabove report.[facility] WITH [id number] 14:56:09 Test Item Value Reference Range Interpretation [...] (test code = 59.0 fL 38.5-51.6 H 66784-9) RDW-CV (test code = 21.9 % 12.1-15.4 H 788-0) PLT (test code = See_Comment [Automated 777-3) message] The sy stem which generated this result transmitted reference range : 150 - 328 10*3/ ?L. The reference r christine was not used to interpret this result as normal/abnormal . MPV (test code = 11.7 fL 9.8-13.0 02787-1) IPF % (test code = 2.6 % 1.2-10.7 Platelet count 7443610139) measured by fluorescence method. NRBC/100 WBC (test See_Comment [Automat ed code = 2815355263) message] The system which generated this result transmitted reference range : 0.0 - 10.0 /100 WBCs. The refer ence range was not u sed to interpret th is result as normal/abnormal . NRBC x10^3 (test code <0.01 See_Comment [Auto mated = 6775261387) message] The s ystem which generated this result transmitted reference range : 10*3/?L. The reference range was not used to interpret this result as normal/abnormal . GRAN MAT (NEUT) % 73.4 % (test code = 770-8) IMM GRAN % (test code 4.90 % = 6164059640) LYMPH % (test code = 6.7 % 736-9) MONO % (test code = 14.3 % 5905-5) EOS % (test code = 0.4 % 713-8) BASO % (test code = 0.3 % 706-2) GRAN MAT x10^3(ANC) 8.45 10*3/uL 1.99-6.95 H (test code = 0183519569) IMM GRAN x10^3 (test 0.57 10*3/uL 0.00-0.06 H code = 5158672200) LYMPH x10^3 (test code 0.77 10*3/uL 1.09-3.23 [...] 800-3) Lab Interpretation Abnormal (test code = 84663-0) [facility]2020-[facility]27 12:58:08 Test Item Value Reference Range Interpretation Comments POCT GLU (test code = 2227843481) 381 mg/dL 70-110 H Lab Interpretation (test code = Abnormal 72022-6) [facility] [id number] 11:41:52 Test Item Value Reference Range Interpretation Comments TROPONIN I (test 0.229 ng/mL See_Comment H [Automated code = 2917642903) message] The system which generated this result [...] ? Lab Interpretation Abnormal (test code = 06544-9) [facility] (NA, K, CL, CO2, GLUCOSE, BUN, CREATININE, CA)2020-10-27 11:41:31 Test Item Value Reference Range Interpretation Comments NA (test code = 149 mmol/L 135-145 H 8835829025) K (test code = 4.2 mmol/L 3.5-5.0 Slight 6234256770) hemolysis CL (test code = 122 mmol/L 98-108 H 1779956646) CO2 TOTAL (test code 17 mmol/L 23-31 L = 3299933761) AGAP (test code = 2-16 1845209273) BUN (test code = 52 mg/dL 7-23 H Slight 3475352671) hemolysis GLUCOSE (test code = 346 mg/dL 70-110 H 8112277677) CREATININE (test code 1.21 mg/dL 0.60-1.25 = 8361263012) CALCIUM (test code = 8.5 mg/dL 8.6-10.6 L 1009660033) eGFR (test code = mL/min/1.73m2 3411397283) JUAN LUIS (test code = JUAN LUIS) [...] tests). Lab Interpretation Abnormal (test code = 57356-0) [facility] [id number] 05:53:41 Test Item Value Reference Range Interpretation Comments TROPONIN I (test 0.163 ng/mL See_Comment H [Automated code = 8180145970) message] The system which generated this result [...] ? Lab Interpretation Abnormal (test code = 66574-8) [facility] (NA, K, CL, CO2, GLUCOSE, BUN, CREATININE, CA)2020-10-27 05:39:56 Test Item Value Reference Range Interpretation Comments NA (test code = 152 mmol/L 135-145 H 1459440821) K (test code = 3.9 mmol/L 3.5-5.0 2738691550) CL (test code = 123 mmol/L 98-108 H 3906286316) CO2 TOTAL (test code = 13 mmol/L 23-31 L 4900055415) AGAP (test code = 2-16 7400249359) BUN (test code = 52 mg/dL 7-23 H 5405364094) GLUCOSE (test code = 284 mg/dL 70-110 H 9171430658) CREATININE (test code = 1.31 mg/dL 0.60-1.25 H 3952481315) CALCIUM (test code = 8.6 mg/dL 8.6-10.6 6867370972) eGFR (test code = mL/min/1.73m2 7635016496) JUAN LUIS (test code = JUAN LUIS) [...] tests). Lab Interpretation Abnormal (test code = 63054-4) [facility] GLUCOSE (AUTOMATED)2020-10-27 03:12:41 Test Item Value Reference Range Interpretation Comments POCT GLU (test code = 7868241271) 253 mg/dL 70-110 H Lab Interpretation (test code = Abnormal 70962-9) [facility] (NA, K, CL, CO2, GLUCOSE, BUN, CREATININE, CA)2020-10-26 23:37:44 Test Item Value Reference Range Interpretation Comments NA (test code = 152 mmol/L 135-145 H 1137289576) K (test code = 4.1 mmol/L 3.5-5.0 4291902264) CL (test code = 123 mmol/L 98-108 H 2503068985) CO2 TOTAL (test code = 11 mmol/L 23-31 L 0820964956) AGAP (test code = 2-16 H 6462307882) BUN (test code = 54 mg/dL 7-23 H 1611378054) GLUCOSE (test code = 193 mg/dL 70-110 H 0920720355) CREATININE (test code = 1.41 mg/dL 0.60-1.25 H 7687106612) CALCIUM (test code = 9.1 mg/dL 8.6-10.6 1350974162) eGFR (test code = mL/min/1.73m2 2079843848) JUAN LUIS (test code = JUAN LUIS) [...] tests). Lab Interpretation Abnormal (test code = 35427-9) [facility]2020-10-26 21:41:08 Test Item Value Reference Range Interpretation Comments POCT GLU (test code = 7982817661) 204 mg/dL 70-110 H Lab Interpretation (test code = Abnormal 28567-0) [facility] ABDOMEN PELVIS W [id number] 17:26:11 1. ?Multifocal mixed attenuation opacities and [...] TECHNIQUE: CT examination acquisition dated 10/22/2020 from [facility], labeled with the patients name, was submitted [...] of a left total hip arthroplasty. [facility], Radiant Results [facility] User - 10/26/2020 12:27 PM CDTEXAM: CT CHEST, ABDOMEN AND PELVIS WITHOUT CONTRAST, CONSULTATION OUTSIDEHISTORY: 65 years -old Male with uti - shock COMPARISON: None, correlation with CT abdomen pelvis with and withoutcontrast from 09/20/2017TECHNIQUE: CT examination acquisition dated 10/22/2020 from [facility], labeled with the patients name, was submitted [...] reviewed this study and agree with the abovereport.[facility] PEL[facility] W [id number] 17:26:11 1. ?Multifocal mixed attenuation opacities and [...] TECHNIQUE: CT examination acquisition dated 10/22/2020 from [facility], labeled with the patients name, was submitted [...] of a left total hip arthroplasty. [facility], Radiant Results [facility] User - 11/08/2020 9:47 AM CDTEXAM: CT CHEST, ABDOMEN AND PELVIS WITHOUT CONTRAST, CONSULTATION OUTSIDEHISTORY: 65 years -old Male with uti - shock COMPARISON: None, correlation with CT abdomen pelvis with and withoutcontrast from 09/20/2017TECHNIQUE: CT examination acquisition dated 10/22/2020 from [facility], labeled with the patients name, was submitted [...] reviewed this study and agree with the abovereport.[facility] PEL[facility] W [id number] 17:26:11 1. ?Multifocal mixed attenuation opacities and [...] TECHNIQUE: CT examination acquisition dated 10/22/2020 from [facility], labeled with the patients name, was submitted [...] 09/20/2017TECHNIQUE: CT examination acquisition dated 10/22/2020 from [facility], labeled with the patients name, was submitted [...] reviewed this study and agree with the abovereport.[facility] GLUCOSE (AUTOMATED)2020-10-26 16:56:22 Test Item Value Reference Range Interpretation Comments POCT GLU (test code = 5119609170) 179 mg/dL 70-110 H Lab Interpretation (test code = Abnormal 87868-6) [facility] GLUCOSE (AUTOMATED)2020-10-26 13:03:19 Test Item Value Reference Range Interpretation Comments POCT GLU (test code = 7034209846) 164 mg/dL 70-110 H Lab Interpretation (test code = Abnormal 99927-3) [facility] [id number] 09:45:42 Test Item Value Reference Range Interpretation Comments TROPONIN I (test 0.120 ng/mL See_Comment H [Automated code = 1721614945) message] The system which generated this result [...] ? Lab Interpretation Abnormal (test code = 17737-8) [facility] WITH [id number] 09:41:39 Test Item Value Reference Range Interpretation [...] (test code = 58.0 fL 38.5-51.6 H 49139-6) RDW-CV (test code = 21.2 % 12.1-15.4 H 788-0) PLT (test code = See_Comment [Automated 777-3) message] The sy stem which generated this result transmitted reference range : 150 - 328 10*3/ ?L. The reference r christine was not used to interpret this result as normal/abnormal . MPV (test code = 12.3 fL 9.8-13.0 21854-3) IPF % (test code = 2.6 % 1.2-10.7 Platelet count 8326670972) measured by fluorescence method. NRBC/100 WBC (test See_Comment [Automat ed code = 7746654336) message] The system which generated this result transmitted reference range : 0.0 - 10.0 /100 WBCs. The refer ence range was not u sed to interpret th is result as normal/abnormal . NRBC x10^3 (test code See_Comment [Auto mated = 8756570983) message] The s ystem which generated this result transmitted reference range : 10*3/?L. The reference range was not used to interpret this result as normal/abnormal . GRAN MAT (NEUT) % 84.2 % (test code = 770-8) IMM GRAN % (test code 2.50 % = 3327646828) LYMPH % (test code = 4.7 % 736-9) MONO % (test code = 8.1 % 5905-5) EOS % (test code = 0.1 % 713-8) BASO % (test code = 0.4 % 706-2) GRAN MAT x10^3(ANC) 13.91 10*3/uL 1.99-6.95 H (test code = 2238177919) IMM GRAN x10^3 (test 0.42 10*3/uL 0.00-0.06 H code = 0107439203) LYMPH x10^3 (test 0.77 10*3/uL 1.09-3.23 L code = 731-0) MONO x10^3 (test code 1.33 10*3/uL 0.36-1.02 H = 742-7) EOS x10^3 (test code <0.03 0.06-0.53 L = 711-2) BASO x10^3 (test code 0.06 10*3/uL 0.01-0.09 = 704-7) BASO STIPPLING (test Present A code = 703-9) YVES CELLS (test code 2+ See_Comment A [Auto mated = 2199-9) message] The sy stem which generated this result transmitted reference range : (none). The reference range was not used to interpret this result as normal/abnormal . SCHISTOCYTES (test 1+ A code = 800-3) Lab Interpretation Abnormal (test code = 54281-7) [facility] METABOLIC PANEL (NA, K, CL, CO2, GLUCOSE, BUN, CREATININE, CA)2020-10-26 09:35:35 Test Item Value Reference Range Interpretation Comments NA (test code = 151 mmol/L 135-145 H 5879834988) K (test code = 3.6 mmol/L 3.5-5.0 9136867050) CL (test code = 121 mmol/L 98-108 H 7868611535) CO2 TOTAL (test code = 15 mmol/L 23-31 L 7576630164) AGAP (test code = 2-16 0870284162) BUN (test code = 57 mg/dL 7-23 H 3802278312) GLUCOSE (test code = 168 mg/dL 70-110 H 1727887517) CREATININE (test code = 1.46 mg/dL 0.60-1.25 H 5256897713) CALCIUM (test code = 9.1 mg/dL 8.6-10.6 4117105007) eGFR (test code = mL/min/1.73m2 6956233299) JUAN LUIS (test code = JUAN LUIS) [...] tests). Lab Interpretation Abnormal (test code = 67589-7) [facility] 09:32:43 Test Item Value Reference Range Interpretation Comments MAGNESIUM (test code = 2520762838) 2.3 mg/dL 1.7-2.4 Lab Interpretation (test code = Normal 98923-4) [facility] [id number] 02:54:02 Test Item Value Reference Range Interpretation Comments TROPONIN I (test 0.117 ng/mL See_Comment H [Automated code = 6828190938) message] The system which generated this result [...] ? Lab Interpretation Abnormal (test code = 67534-2) [facility] GLUCOSE (AUTOMATED)2020-10-26 02:34:02 Test Item Value Reference Range Interpretation Comments POCT GLU (test code = 8029555675) 193 mg/dL 70-110 H Lab Interpretation (test code = Abnormal 35781-5) [facility] GLUCOSE (AUTOMATED)2020-10-25 23:37:15 Test Item Value Reference Range Interpretation Comments POCT GLU (test code = 3784389425) 166 mg/dL 70-110 H Lab Interpretation (test code = Abnormal 45109-8) [facility] [id number] 20:45:53 Test Item Value Reference Range Interpretation Comments TROPONIN I (test 0.136 ng/mL See_Comment H [Automated code = 7215817155) message] The system which generated this result [...] ? Lab Interpretation Abnormal (test code = 27392-7) [facility] 20:27:09 Test Item Value Reference Range Interpretation Comments MAGNESIUM (test code = 0368274685) 2.3 mg/dL 1.7-2.4 Lab Interpretation (test code = Normal 20833-9) [facility] (NA, K, CL, CO2, GLUCOSE, BUN, CREATININE, CA)2020-10-25 20:06:41 Test Item Value Reference Range Interpretation Comments NA (test code = 147 mmol/L 135-145 H 0561948657) K (test code = 3.8 mmol/L 3.5-5.0 4444537231) CL (test code = 118 mmol/L 98-108 H 7140078417) CO2 TOTAL (test code = 15 mmol/L 23-31 L 6850212889) AGAP (test code = 2-16 7560826911) BUN (test code = 61 mg/dL 7-23 H 3074100180) GLUCOSE (test code = 174 mg/dL 70-110 H 1697098772) CREATININE (test code = 1.59 mg/dL 0.60-1.25 H 7659624157) CALCIUM (test code = 9.3 mg/dL 8.6-10.6 3399931948) eGFR (test code = mL/min/1.73m2 7831271440) JUAN LUIS (test code = JUAN LUIS) [...] tests). Lab Interpretation Abnormal (test code = 29613-4) [facility] + LACTIC [id number] 19:54:16 Test Item Value Reference Range Interpretation Comments PH (test code = 2) 7.35-7.45 PCO2 (test code = See_Comment L [Automat ed 2832457120) message] The sy stem which generated this result transmitted reference range : 35 - 45 mmHg. The reference range was not used to interpret this result as normal/abnormal . PO2 (test code = See_Comment [Automated 3336466108) message] The sy stem which generated this result transmitted reference range : 80 - 100 mmHg. The reference range was not used to interpret this result as normal/abnormal . HCO3 (test code = See_Comment L [Automate d 2470439412) message] The sy stem which generated this result transmitted reference range : 22 - 26 mEq/L. The reference range was not used to interpret this result as normal/abnormal . BE (test code = See_Comment L [Automated 8245705593) message] The sy stem which generated this result transmitted reference range : -3.0 - 3.0 mEq/ L. The reference r christine was not used to interpret this result as normal/abnormal . THB (test code = 10.0 g/dL 13.5-18.0 L 4892049865) %O2HB (test code = 96.5 % 94.0-99.0 0246265538) %COHB ART (test code = 0.2 % 0.0-1.5 5750493963) %METHB ART (test code = 0.3 % 0.4-1.5 L 4087290879) VOL%O2 ART (test code = 13.7 % 15.0-23.0 L 9905650911) NA (test code = 149 mmol/L 135-145 H 6054072405) K+ (test code = 3.8 mmol/L 3.5-5.0 4121272807) AC CA IONZ (test code = 5.20 mg/dL 4.50-5.30 8953816112) GLUCOSE (test code = 178 mg/dL 70-110 H 4629681756) LACTIC ACID (test code 1.36 mmol/L 0.50-2.20 = 3092982375) Lab Interpretation Abnormal (test code = 20979-1) [facility] LACTIC [id number] 18:33:03 Test Item Value Reference Range Interpretation Comments PH (test code = 2) 7.35-7.45 L PCO2 (test code = See_Comment L [Automat ed 3342019138) message] The sy stem which generated this result transmitted reference range : 35 - 45 mmHg. The reference range was not used to interpret this result as normal/abnormal . PO2 (test code = See_Comment [Automated 7667284026) message] The sy stem which generated this result transmitted reference range : 80 - 100 mmHg. The reference range was not used to interpret this result as normal/abnormal . HCO3 (test code = See_Comment L [Automate d 1683145054) message] The sy stem which generated this result transmitted reference range : 22 - 26 mEq/L. The reference range was not used to interpret this result as normal/abnormal . BE (test code = See_Comment L [Automated 0670111403) message] The sy stem which generated this result transmitted reference range : -3.0 - 3.0 mEq/ L. The reference r christine was not used to interpret this result as normal/abnormal . THB (test code = 11.4 g/dL 13.5-18.0 L 5607073311) %O2HB (test code = 97.0 % 94.0-99.0 4172685363) %COHB ART (test code = 0.3 % 0.0-1.5 3090730158) %METHB ART (test code = 0.0 % 0.4-1.5 L 3243593695) VOL%O2 ART (test code = 15.7 % 15.0-23.0 4556079193) NA (test code = 147 mmol/L 135-145 H 6923478178) K+ (test code = 3.8 mmol/L 3.5-5.0 5813719959) AC CA IONZ (test code = 5.30 mg/dL 4.50-5.30 0684800779) GLUCOSE (test code = 173 mg/dL 70-110 H 9624168840) LACTIC ACID (test code 1.08 mmol/L 0.50-2.20 = 1497995202) Lab Interpretation Abnormal (test code = 78088-1) [facility] GLUCOSE (AUTOMATED)2020-10-25 17:17:08 Test Item Value Reference Range Interpretation Comments POCT GLU (test code = 8994881395) 179 mg/dL 70-110 H Lab Interpretation (test code = Abnormal 88641-5) [facility] LACTIC [id number] 15:31:09 Test Item Value Reference Range Interpretation Comments PH (test code = 2) 7.35-7.45 PCO2 (test code = See_Comment L [Automat ed 8283169390) message] The sy stem which generated this result transmitted reference range : 35 - 45 mmHg. The reference range was not used to interpret this result as normal/abnormal . PO2 (test code = See_Comment [Automated 0351975725) message] The sy stem which generated this result transmitted reference range : 80 - 100 mmHg. The reference range was not used to interpret this result as normal/abnormal . HCO3 (test code = See_Comment L [Automate d 6764437288) message] The sy stem which generated this result transmitted reference range : 22 - 26 mEq/L. The reference range was not used to interpret this result as normal/abnormal . BE (test code = See_Comment L [Automated 5286790991) message] The sy stem which generated this result transmitted reference range : -3.0 - 3.0 mEq/ L. The reference r christine was not used to interpret this result as normal/abnormal . THB (test code = 9.3 g/dL 13.5-18.0 L 8650300453) %O2HB (test code = 96.5 % 94.0-99.0 1978684481) %COHB ART (test code = 0.3 % 0.0-1.5 6073915286) %METHB ART (test code = 0.3 % 0.4-1.5 L 2420864927) VOL%O2 ART (test code = 12.8 % 15.0-23.0 L 2829543624) NA (test code = 144 mmol/L 135-145 5839254564) K+ (test code = 3.6 mmol/L 3.5-5.0 0454348167) AC CA IONZ (test code = 5.10 mg/dL 4.50-5.30 2171341422) GLUCOSE (test code = 177 mg/dL 70-110 H 1105360638) LACTIC ACID (test code 0.92 mmol/L 0.50-2.20 = 5939652674) Lab Interpretation Abnormal (test code = 40496-2) [facility] 12:43:51 Test Item Value Reference Range Interpretation Comments POCT GLU (test code = 2494841378) 213 mg/dL 70-110 H Lab Interpretation (test code = Abnormal 94794-0) [facility] WITH [id number] 10:09:26 Test Item Value Reference Range Interpretation [...] (test code = 56.3 fL 38.5-51.6 H 83870-2) RDW-CV (test code = 20.6 % 12.1-15.4 H 788-0) PLT (test code = See_Comment [Automated 777-3) message] The sy stem which generated this result transmitted reference range : 150 - 328 10*3/ ?L. The reference r christine was not used to interpret this result as normal/abnormal . MPV (test code = 12.6 fL 9.8-13.0 75908-6) IPF % (test code = 2.3 % 1.2-10.7 Platelet count 2310379628) measured by fluorescence method. NRBC/100 WBC (test See_Comment [Automat ed code = 8384745866) message] The system which generated this result transmitted reference range : 0.0 - 10.0 /100 WBCs. The refer ence range was not u sed to interpret th is result as normal/abnormal . NRBC x10^3 (test code See_Comment [Auto mated = 5103296982) message] The s ystem which generated this result transmitted reference range : 10*3/?L. The reference range was not used to interpret this result as normal/abnormal . GRAN MAT (NEUT) % 89.5 % (test code = 770-8) IMM GRAN % (test code 2.30 % = 1396508987) LYMPH % (test code = 3.9 % 736-9) MONO % (test code = 3.8 % 5905-5) EOS % (test code = 0.1 % 713-8) BASO % (test code = 0.4 % 706-2) GRAN MAT x10^3(ANC) 13.12 10*3/uL 1.99-6.95 H (test code = 5119762308) IMM GRAN x10^3 (test 0.34 10*3/uL 0.00-0.06 H code = 4858688938) LYMPH x10^3 (test 0.57 10*3/uL 1.09-3.23 L code = 731-0) MONO x10^3 (test code 0.56 10*3/uL 0.36-1.02 = 742-7) EOS x10^3 (test code <0.03 0.06-0.53 L = 711-2) BASO x10^3 (test code 0.06 10*3/uL 0.01-0.09 = 704-7) YVES CELLS (test code 2+ See_Comment A [Auto mated = 0790-9) message] The sy stem which generated this result transmitted reference range : (none). The reference range was not used to interpret this result as normal/abnormal . SCHISTOCYTES (test 1+ A code = 800-3) Lab Interpretation Abnormal (test code = 05047-5) [facility] METABOLIC PANEL (NA, K, CL, CO2, GLUCOSE, BUN, CREATININE, CA)2020-10-25 09:03:31 Test Item Value Reference Range Interpretation Comments NA (test code = 147 mmol/L 135-145 H 0908871907) K (test code = 3.6 mmol/L 3.5-5.0 7450648889) CL (test code = 115 mmol/L 98-108 H 6057031258) CO2 TOTAL (test code = 14 mmol/L 23-31 L 3793736713) AGAP (test code = 2-16 H 7059096075) BUN (test code = 58 mg/dL 7-23 H 9401773628) GLUCOSE (test code = 193 mg/dL 70-110 H 6547384723) CREATININE (test code = 1.58 mg/dL 0.60-1.25 H 8103267702) CALCIUM (test code = 9.3 mg/dL 8.6-10.6 7514121387) eGFR (test code = mL/min/1.73m2 7305330967) JUAN LUIS (test code = JUAN LUIS) [...] tests). Lab Interpretation Abnormal (test code = 36533-9) [facility] 09:03:31 Test Item Value Reference Range Interpretation Comments MAGNESIUM (test code = 7772530494) 2.2 mg/dL 1.7-2.4 Lab Interpretation (test code = Normal 90449-1) [facility] GLUCOSE (AUTOMATED)2020-10-25 01:29:10 Test Item Value Reference Range Interpretation Comments POCT GLU (test code = 0248255802) 135 mg/dL 70-110 H Lab Interpretation (test code = Abnormal 53403-9) [facility] GLUCOSE (AUTOMATED)2020-10-24 21:38:54 Test Item Value Reference Range Interpretation Comments POCT GLU (test code = 7395742243) 131 mg/dL 70-110 H Lab Interpretation (test code = Abnormal 49672-3) [facility] HEAD WO [id number] 20:06:13 No acute intracranial abnormality. Bilateral mastoid [...] Orotracheal andorogastric tubes are partially imaged. [facility] Results Inft User - 10/24/2020 3:07 PM [...] reviewed this study and agree with the abovereport.[facility]2020-10-24 16:52:54 Test Item Value Reference Range Interpretation Comments POCT GLU (test code = 0881707361) 137 mg/dL 70-110 H Lab Interpretation (test code = Abnormal 88944-0) [facility] - To confirm nasogastric tube placement.2020-10-24 14:05:05FINDINGS / IMPRESSION: Nasogastric tube tip and sidehole terminate at the proximal stomach. Preliminary Report Dictated by Resident: Emelia Mcdonald I reviewed this study and agree. Jigar Gómez MD., have reviewed this study and agree with theabove report.EXAM: XR ABDOMEN 1 VW HISTORY: 65 years-old Male presenting with To confirm nasogastric tube tubeplacement. COMPARISON: Abdomen plain film08/24/2019, 09/20/2017 TECHNIQUE: Frontal views of the abdomen were obtained. [facility], Radiant Results Inft User - 10/24/2020 9:06 [...] reviewed this study and agree with theabove report.[facility]2020-10-24 12:53:15 Test Item Value Reference Range Interpretation Comments POCT GLU (test code = 8551840342) 142 mg/dL 70-110 H Lab Interpretation (test code = Abnormal 47199-2) [facility] WITH [id number] 10:52:23 Test Item Value Reference Range Interpretation [...] (test code = 55.3 fL 38.5-51.6 H 75976-9) RDW-CV (test code = 20.4 % 12.1-15.4 H 788-0) PLT (test code = See_Comment [Automated 777-3) message] The sy stem which generated this result transmitted reference range : 150 - 328 10*3/ ?L. The reference r christine was not used to interpret this result as normal/abnormal . MPV (test code = 12.8 fL 9.8-13.0 99820-3) IPF % (test code = 4.3 % 1.2-10.7 Platelet count 8009878247) measured by fluorescence method. NRBC/100 WBC (test See_Comment [Automat ed code = 9729309122) message] The system which generated this result transmitted reference range : 0.0 - 10.0 /100 WBCs. The refer ence range was not u sed to interpret th is result as normal/abnormal . NRBC x10^3 (test code See_Comment [Auto mated = 1120098395) message] The s ystem which generated this result transmitted reference range : 10*3/?L. The reference range was not used to interpret this result as normal/abnormal . GRAN MAT (NEUT) % 90.4 % (test code = 770-8) IMM GRAN % (test code 0.80 % = 8399196994) LYMPH % (test code = 3.5 % 736-9) MONO % (test code = 4.9 % 5905-5) EOS % (test code = 0.1 % 713-8) BASO % (test code = 0.3 % 706-2) GRAN MAT x10^3(ANC) 12.98 10*3/uL 1.99-6.95 H (test code = 4935489211) IMM GRAN x10^3 (test 0.12 10*3/uL 0.00-0.06 H code = 3113988853) LYMPH x10^3 (test 0.51 10*3/uL 1.09-3.23 L code = 731-0) MONO x10^3 (test code 0.71 10*3/uL 0.36-1.02 = 742-7) EOS x10^3 (test code <0.03 0.06-0.53 L = 711-2) BASO x10^3 (test code 0.04 10*3/uL 0.01-0.09 = 704-7) ELLIPTO/OVAL (test 2+ See_Comment A [Automat ed code = 77046-1) message] The system which generated this result transmitted reference range : (none). The reference range was not used to interpret this result as normal/abnormal . SCHISTOCYTES (test 2+ A code = 800-3) BANDS (test code = Increased A 7930621811) Lab Interpretation Abnormal (test code = 14131-2) [facility] 10:23:51 Test Item Value Reference Range Interpretation Comments MAGNESIUM (test code = 6418127679) 2.2 mg/dL 1.7-2.4 Lab Interpretation (test code = Normal 98234-4) [facility] (NA, K, CL, CO2, GLUCOSE, BUN, CREATININE, CA)2020-10-24 10:23:51 Test Item Value Reference Range Interpretation Comments NA (test code = 144 mmol/L 135-145 9426901833) K (test code = 3.7 mmol/L 3.5-5.0 0136289504) CL (test code = 114 mmol/L 98-108 H 5062181457) CO2 TOTAL (test code = 15 mmol/L 23-31 L 5396668928) AGAP (test code = 2-16 5688273823) BUN (test code = 63 mg/dL 7-23 H 9318930327) GLUCOSE (test code = 140 mg/dL 70-110 H 1454388188) CREATININE (test code = 1.76 mg/dL 0.60-1.25 H 2092794690) CALCIUM (test code = 9.3 mg/dL 8.6-10.6 5629549754) eGFR (test code = mL/min/1.73m2 7423944189) JUAN LUIS (test code = JUAN LUIS) [...] tests). Lab Interpretation Abnormal (test code = 06966-9) [facility] GLUCOSE (AUTOMATED)2020-10-24 01:03:00 Test Item Value Reference Range Interpretation Comments POCT GLU (test code = 2781648226) 117 mg/dL 70-110 H Lab Interpretation (test code = Abnormal 16274-2) [facility] GLUCOSE (AUTOMATED)2020-10-23 23:30:25 Test Item Value Reference Range Interpretation Comments POCT GLU (test code = 6798286813) 129 mg/dL 70-110 H Lab Interpretation (test code = Abnormal 23068-0) [facility] GLUCOSE (AUTOMATED)2020-10-23 18:08:09 Test Item Value Reference Range Interpretation Comments POCT GLU (test code = 8590441794) 125 mg/dL 70-110 H Lab Interpretation (test code = Abnormal 50056-0) [facility] MSSA Screen by Britney [id number] 17:04:24 Test Item Value Reference Range Interpretation Comments MSSA Screen by Britney MTZ (test code Negative Negative = 69840-3) MRSA/MSSA Positive? (test code = No No 2321187580) Lab Interpretation (test code = Normal 64849-0) [facility] WITH [id number] 14:13:40 Test Item Value Reference Range Interpretation [...] (test code = 55.7 fL 38.5-51.6 H 61588-3) RDW-CV (test code = 21.0 % 12.1-15.4 H 788-0) PLT (test code = See_Comment L [Automated 777-3) message] The system which generated this result transmit tennille reference range : 150 - 328 10*3/ ?L. The reference range was not u sed to interpret th is result as normal/abnormal . MPV (test code = Not Measure d 88664-8) IPF % (test code = 6.0 % 1.2-10.7 Platelet count 0523086042) measured by fluorescence method. NRBC/100 WBC (test See_Comment [Automat ed code = 0809386517) message] The system which generated this result transmit tennille reference range : 0.0 - 10.0 /100 WBCs. The reference range was not used to interpret this result as normal/abnormal . NRBC x10^3 (test code <0.01 See_Comment [Auto mated = 2633784122) message] The system which generated this result transmit tennille reference range : 10*3/?L. The reference range was not used to interpret this result as normal/abnormal . GRAN MAT (NEUT) % 87.1 % (test code = 770-8) IMM GRAN % (test code 0.30 % = 2985291592) LYMPH % (test code = 5.7 % 736-9) MONO % (test code = 6.1 % 5905-5) EOS % (test code = 0.5 % 713-8) BASO % (test code = 0.3 % 706-2) GRAN MAT x10^3(ANC) 9.40 10*3/uL 1.99-6.95 H (test code = 6848956793) IMM GRAN x10^3 (test 0.03 10*3/uL 0.00-0.06 code = 9308398740) LYMPH x10^3 (test 0.61 10*3/uL 1.09-3.23 L [...] BANDS (test code = MARKED INCREASED A 9739128801) DOHLE BODIES (test Present A code = 7792-5) Lab Interpretation Abnormal (test code = 34377-0) [facility]2020-10-23 13:07:35 Test Item Value Reference Range Interpretation Comments POCT GLU (test code = 1551396865) 124 mg/dL 70-110 H Lab Interpretation (test code = Abnormal 22640-3) [facility] Packed RBC (in units), 1 Units 2020-10-23 10:02:05 Test Item Value Reference Range Interpretation Comments Cross Match Result Compatible (test code = 4409) ISBT Blood Type Code (test code = 787340) Unit Blood Type (test A Pos code = 4410) Unit Number (test [id number] code = 4411) Blood Expiration Date & Time (test code = 457743) Status Information Issued (test code = 4412) Product Red Blood Cells Identification (test code = 4413) Product Code (test [id number] Performed at [facility] code = 4414) Laboratory Services - [facility] Blood [address] [address]Cdmv Free: [phone] A No. [id number] [facility]2021-[facility]-11 09:48:31 Test Item Value Reference Range Interpretation Comments MAGNESIUM (test code = 4510621819) 2.1 mg/dL 1.7-2.4 Lab Interpretation (test code = Normal 80997-5) [facility] WITH [id number] 09:36:10 Test Item Value Reference Range Interpretation Comments WBC (test code = See_Comment [Automated 6690-2) message] The system which generated this result transmit tennille reference range : 4.20 - 10.70 10*3/?L. The reference range was not used to interpret this result as normal/abnormal . RBC (test code = See_Comment L [Automated 839-8) message] The system which generated this result [...] RDW-SD (test code = 50.4 fL 38.5-51.6 10842-5) RDW-CV (test code = 19.6 % 12.1-15.4 H 788-0) PLT (test code = See_Comment L [Automated 777-3) message] The system which generated this result transmit tennille reference range : 150 - 328 10*3/ ?L. The reference range was not u sed to interpret th is result as normal/abnormal . MPV (test code = 12.5 fL 9.8-13.0 74624-4) IPF % (test code = 5.6 % 1.2-10.7 Platelet count 4900719616) measured by fluorescence method. NRBC/100 WBC (test See_Comment [Automat ed code = 0718558845) message] The system which generated this result transmit tennille reference range : 0.0 - 10.0 /100 WBCs. The reference range was not used to interpret this result as normal/abnormal . NRBC x10^3 (test code <0.01 See_Comment [Auto mated = 7528917000) message] The system which generated this result transmit tennille reference range : 10*3/?L. The reference range was not used to interpret this result as normal/abnormal . GRAN MAT (NEUT) % 86.0 % (test code = 770-8) IMM GRAN % (test code 0.30 % = 0139273338) LYMPH % (test code = 7.3 % 736-9) MONO % (test code = 5.8 % 5905-5) EOS % (test code = 0.4 % 713-8) BASO % (test code = 0.2 % 706-2) GRAN MAT x10^3(ANC) 7.75 10*3/uL 1.99-6.95 H (test code = 5561208040) IMM GRAN x10^3 (test 0.03 10*3/uL 0.00-0.06 code = 5486658552) LYMPH x10^3 (test 0.66 10*3/uL 1.09-3.23 L [...] BANDS (test code = MARKED INCREASED A 4786655770) TOXIC CHANGES (test Present A code = 803-7) Lab Interpretation Abnormal (test code = 69952-7) [facility] METABOLIC PANEL (NA, K, CL, CO2, GLUCOSE, BUN, CREATININE, CA)2020-10-23 09:20:10 Test Item Value Reference Range Interpretation Comments NA (test code = 140 mmol/L 135-145 0668926551) K (test code = 3.7 mmol/L 3.5-5.0 7717351587) CL (test code = 111 mmol/L 98-108 H 9444005998) CO2 TOTAL (test code = 19 mmol/L 23-31 L 8474210156) AGAP (test code = 2-16 7997654147) BUN (test code = 72 mg/dL 7-23 H 1514999096) GLUCOSE (test code = 103 mg/dL 70-110 9433487670) CREATININE (test code = 1.88 mg/dL 0.60-1.25 H 1729131476) CALCIUM (test code = 9.2 mg/dL 8.6-10.6 4897980119) eGFR (test code = mL/min/1.73m2 3297204200) JUAN LUIS (test code = JUAN LUIS) [...] tests). Lab Interpretation Abnormal (test code = 66411-2) [facility] [id number] 23:41:10 Test Item Value Reference Range Interpretation Comments TROPONIN I (test 0.092 ng/mL See_Comment H [Automated code = 8887684501) message] The system which generated this result [...] ? Lab Interpretation Abnormal (test code = 79135-7) [facility] WITH [id number] 23:37:34 Test Item Value Reference Range Interpretation [...] RDW-SD (test code = 50.0 fL 38.5-51.6 88330-9) RDW-CV (test code = 19.5 % 12.1-15.4 H 788-0) PLT (test code = See_Comment L [Automated 777-3) message] The system which generated this result transmit tennille reference range : 150 - 328 10*3/ ?L. The reference range was not u sed to interpret th is result as normal/abnormal . MPV (test code = 12.9 fL 9.8-13.0 75141-0) IPF % (test code = 4.4 % 1.2-10.7 Platelet count 5786523875) measured by fluorescence method. NRBC/100 WBC (test See_Comment [Automat ed code = 8385676856) message] The system which generated this result transmit tennille reference range : 0.0 - 10.0 /100 WBCs. The reference range was not used to interpret this result as normal/abnormal . NRBC x10^3 (test code <0.01 See_Comment [Auto mated = 5868926511) message] The system which generated this result transmit tennille reference range : 10*3/?L. The reference range was not used to interpret this result as normal/abnormal . GRAN MAT (NEUT) % 85.1 % (test code = 770-8) IMM GRAN % (test code 0.40 % = 8662782638) LYMPH % (test code = 7.4 % 736-9) MONO % (test code = 6.9 % 5905-5) EOS % (test code = 0.1 % 713-8) BASO % (test code = 0.1 % 706-2) GRAN MAT x10^3(ANC) 8.19 10*3/uL 1.99-6.95 H (test code = 4901282871) IMM GRAN x10^3 (test 0.04 10*3/uL 0.00-0.06 code = 9738874956) LYMPH x10^3 (test 0.71 10*3/uL 1.09-3.23 L [...] BANDS (test code = MARKED INCREASED A 1233690960) Lab Interpretation Abnormal (test code = 37987-9) [facility]Allen[facility] CHEST 1 [id number] 21:40:41 Endotracheal tube in good position. NG [...] Correlate clin ically.Multifocal infectious/inflammatory interstitial process.[id number] 20:56:24 Test Item Value Reference Range Interpretation Comments FERRITIN (test code = 2110.0 ng/mL 18.0-464.0 H 6003054310) JUAN LUIS (test code = JUAN LUIS) Biotin has been reported to cause a negative bias, interpret results relative to patient's use of biotin. Lab Interpretation (test Abnormal code = 12097-5) [facility] [id number] 20:56:24 Test Item Value Reference Range Interpretation Comments FERRITIN (test code = 2110.0 ng/mL 18.0-464.0 H 1707933436) JUAN LUIS (test code = JUAN LUIS) Biotin has been reported to cause a negative bias, interpret results relative to patient's use of biotin. Lab Interpretation (test Abnormal code = 26854-8) [facility] [id number] 20:56:24 Test Item Value Reference Range Interpretation Comments FERRITIN (test code = 2110.0 ng/mL 18.0-464.0 H 4026614530) JUAN LUIS (test code = JUAN LUIS) Biotin has been reported to cause a negative bias, interpret results relative to patient's use of biotin. Lab Interpretation (test Abnormal code = 04649-3) [facility]EM[facility]GLOBIN (A1C)2020-10-22 19:31:47 Test Item Value Reference Range Interpretation Comments HGB A1C (test code = 4548-4) 4.9 % 4.0-6.0 Lab Interpretation (test code = Normal 99214-8) [facility] (A1C)2020-10-22 19:31:47 Test Item Value Reference Range Interpretation Comments HGB A1C (test code = 4548-4) 4.9 % 4.0-6.0 Lab Interpretation (test code = Normal 74942-5) [facility] (A1C)2020-10-22 19:31:47 Test Item Value Reference Range Interpretation Comments HGB A1C (test code = 4548-4) 4.9 % 4.0-6.0 Lab Interpretation (test code = Normal 44319-4) [facility] [id number] 19:18:54 Test Item Value Reference Range Interpretation Comments IRON (test code = <10 50-160 L 6862418488) TIBC (test code = 145 ug/dL 250-410 L 9490634601) % FE SAT (test code = Unable to calculate 0621372216) because, either iron serum, total ir on binding capacit y, or both are less t moser the sensitivity of the analyzer. Lab Interpretation (test Abnormal code = 56094-8) [facility] [id number] 19:18:54 Test Item Value Reference Range Interpretation Comments IRON (test code = <10 50-160 L 3781029602) TIBC (test code = 145 ug/dL 250-410 L 2429318285) % FE SAT (test code = Unable to calculate 6617585297) because, either iron serum, total ir on binding capacit y, or both are less t moser the sensitivity of the analyzer. Lab Interpretation (test Abnormal code = 70597-6) [facility]AllenIRO [id number] 19:18:54 Test Item Value Reference Range Interpretation Comments IRON (test code = <10 50-160 L 2387408052) TIBC (test code = 145 ug/dL 250-410 L 4278526574) % FE SAT (test code = Unable to calculate 4874500965) because, either iron serum, total ir on binding capacit y, or both are less t moser the sensitivity of the analyzer. Lab Interpretation (test Abnormal code = 24238-6) [facility]AllenTROPONIN [id number] 19:11:37 Test Item Value Reference Range Interpretation Comments TROPONIN I (test 0.099 ng/mL See_Comment H [Automated code = 0142517817) message] The system which generated this result [...] ? Lab Interpretation Abnormal (test code = 48488-9) [facility] WITH [id number] 18:26:52 Test Item Value Reference Range Interpretation [...] RDW-SD (test code = 51.3 fL 38.5-51.6 27244-8) RDW-CV (test code = 19.8 % 12.1-15.4 H 788-0) PLT (test code = See_Comment L [Automated 777-3) message] The system which generated this result transmit tennille reference range : 150 - 328 10*3/ ?L. The reference range was not u sed to interpret th is result as normal/abnormal . MPV (test code = 13.2 fL 9.8-13.0 H 53735-3) IPF % (test code = 4.8 % 1.2-10.7 Platelet count 5653066609) measured by fluorescence method. NRBC/100 WBC (test See_Comment [Automat ed code = 3489758292) message] The system which generated this result transmit tennille reference range : 0.0 - 10.0 /100 WBCs. The reference range was not used to interpret this result as normal/abnormal . NRBC x10^3 (test code <0.01 See_Comment [Auto mated = 1036113068) message] The system which generated this result transmit tennille reference range : 10*3/?L. The reference range was not used to interpret this result as normal/abnormal . GRAN MAT (NEUT) % 85.7 % (test code = 770-8) IMM GRAN % (test code 0.20 % = 3663278490) LYMPH % (test code = 6.1 % 736-9) MONO % (test code = 7.9 % 5905-5) EOS % (test code = 0.0 % 713-8) BASO % (test code = 0.1 % 706-2) GRAN MAT x10^3(ANC) 7.24 10*3/uL 1.99-6.95 H (test code = 0237288246) IMM GRAN x10^3 (test <0.03 0.00-0.06 code = 5418435762) LYMPH x10^3 (test 0.52 10*3/uL 1.09-3.23 L [...] 2+ See_Comment A [Automat ed code = 27156-9) message] The system which generated this result transmit tennille reference range : (none). The reference range was not used to interpret this result as normal/abnormal . SCHISTOCYTES (test 2+ A code = 800-3) BANDS (test code = MARKED INCREASED A 3319032668) Lab Interpretation Abnormal (test code = 73663-9) [facility]AllenType and Screen - ONCE [id number] 18:18:46 Test Item Value Reference Range Interpretation Comments ABO & RH (test code A POSITIVE Performe d at [facility] = 20) Laboratory Serv [facility] Blood Bank[address] [place] [address] s [address]Ewqq Free: [phone] A No. [id number] IAT (test code = Negative Performed a t [facility] 1185) Laboratory Serv [facility] Blood [facility] [place], [place] [address]vesFranc[facility] Munsterfarida [address]Nhvv Free: [phone] A No. [id number] [facility]AllenURINALYSIS2021-04-10 18:13:46 Test Item Value Reference Range Interpretation Comments APPEARANCE (test code = Cloudy Clear A 6512252186) COLOR (test code = Yellow Yellow 4504878837) PH (test code = 4.8-8.0 9430338649) SP GRAVITY (test code = 1.003-1.030 7423163702) GLU U QUAL (test code = Normal Normal 7500171215) BLOOD (test code = 2+ Negative A 8584613372) KETONES (test code = Negative Negative 0296638971) PROTEIN (test code = 100 mg/dL Negative A 2887-8) UROBILIN (test code = Normal Normal 9741148862) BILIRUBIN (test code = Negative Negative 1468360899) NITRITE (test code = Negative Negative 7418768042) LEUK SILVIO (test code = 500/uL Negative A 1643613094) RBC/HPF (test code = See_Comment H [Autom ated message] 7295129645) The system [employer] generated this result transmit tennille reference range : 0 - 3 HPF. The refe rence range was not u sed to interpret th is result as normal/abnormal . WBC/HPF (test code = >182 See_Comment H [Autom ated message] 3716622856) The system [employer] generated this result transmit tennille reference range : 0 - 5 HPF. The refe rence range was not u sed to interpret th is result as normal/abnormal . BACTERIA (test code = Few Negative A 4927705069) MUCOUS (test code = Slight Negative LPF A 8322334675) SQ EPITH (test code = See_Comment [Auto mated message] 7244588969) The system [employer] generated this result transmit tennille reference range : <=2 HPF. The refere nce range was not u sed to interpret th is result as normal/abnormal . WBC CLUMPS (test code = See_Comment H [Au tomated message] 1435393656) The system [employer] generated this result transmit tennille reference range : <=1 HPF. The refere nce range was not u sed to interpret th is result as normal/abnormal . HYAL CAST (test code = See_Comment H [Aut omated message] 0018458923) The system [employer] generated this result transmit tennille reference range : <=2 LPF. The refere nce range was not u sed to interpret th is result as normal/abnormal . Lab Interpretation (test Abnormal code = 17918-1) [facility]46 Test Item Value Reference Range Interpretation Comments APPEARANCE (test code = Cloudy Clear A 8364195288) COLOR (test code = Yellow Yellow 6920333894) PH (test code = 4.8-8.0 6696823643) SP GRAVITY (test code = 1.003-1.030 7992518818) GLU U QUAL (test code = Normal Normal 5930879411) BLOOD (test code = 2+ Negative A 7361913285) KETONES (test code = Negative Negative 9463589385) PROTEIN (test code = 100 mg/dL Negative A 2887-8) UROBILIN (test code = Normal Normal 9254011807) BILIRUBIN (test code = Negative Negative 7356478398) NITRITE (test code = Negative Negative 0459572593) LEUK SILVIO (test code = 500/uL Negative A 6658157813) RBC/HPF (test code = See_Comment H [Autom ated message] 6553908712) The system [employer] generated this result transmit tennille reference range : 0 - 3 HPF. The refe rence range was not u sed to interpret th is result as normal/abnormal . WBC/HPF (test code = >182 See_Comment H [Autom ated message] 4591539619) The system [employer] generated this result transmit tennille reference range : 0 - 5 HPF. The refe rence range was not u sed to interpret th is result as normal/abnormal . BACTERIA (test code = Few Negative A 2577747461) MUCOUS (test code = Slight Negative LPF A 4813724127) SQ EPITH (test code = See_Comment [Auto mated message] 9080583459) The system [employer] generated this result transmit tennille reference range : <=2 HPF. The refere nce range was not u sed to interpret th is result as normal/abnormal . WBC CLUMPS (test code = See_Comment H [Au tomated message] 3156865128) The system [employer] generated this result transmit tennille reference range : <=1 HPF. The refere nce range was not u sed to interpret th is result as normal/abnormal . HYAL CAST (test code = See_Comment H [Aut omated message] 9927341114) The system [employer] generated this result transmit tennille reference range : <=2 LPF. The refere nce range was not u sed to interpret th is result as normal/abnormal . Lab Interpretation (test Abnormal code = 60783-2) [facility] 18:13:46 Test Item Value Reference Range Interpretation Comments APPEARANCE (test code = Cloudy Clear A 3993080303) COLOR (test code = Yellow Yellow 7800838203) PH (test code = 4.8-8.0 6844789715) SP GRAVITY (test code = 1.003-1.030 1311657871) GLU U QUAL (test code = Normal Normal 9065142043) BLOOD (test code = 2+ Negative A 8009167626) KETONES (test code = Negative Negative 8723075779) PROTEIN (test code = 100 mg/dL Negative A 2887-8) UROBILIN (test code = Normal Normal 4510354563) BILIRUBIN (test code = Negative Negative 9429538503) NITRITE (test code = Negative Negative 9542288011) LEUK SILVIO (test code = 500/uL Negative A 0435320562) RBC/HPF (test code = See_Comment H [Autom ated message] 9149433868) The system [employer] generated this result transmit tennille reference range : 0 - 3 HPF. The refe rence range was not u sed to interpret th is result as normal/abnormal . WBC/HPF (test code = >182 See_Comment H [Autom ated message] 0575758876) The system [employer] generated this result transmit tennille reference range : 0 - 5 HPF. The refe rence range was not u sed to interpret th is result as normal/abnormal . BACTERIA (test code = Few Negative A 0989477819) MUCOUS (test code = Slight Negative LPF A 0730072762) SQ EPITH (test code = See_Comment [Auto mated message] 5168122417) The system [employer] generated this result transmit tennille reference range : <=2 HPF. The refere nce range was not u sed to interpret th is result as normal/abnormal . WBC CLUMPS (test code = See_Comment H [Au tomated message] 0811893535) The system [employer] generated this result transmit tennille reference range : <=1 HPF. The refere nce range was not u sed to interpret th is result as normal/abnormal . HYAL CAST (test code = See_Comment H [Aut omated message] 6365272599) The system [employer] generated this result transmit tennille reference range : <=2 LPF. The refere nce range was not u sed to interpret th is result as normal/abnormal . Lab Interpretation (test Abnormal code = 66222-1) [facility]83240[facility] (ALB,T.PRO,BILI T,BU/BC,ALT,AST,ALK PHOS)2020-10-22 18:07:08 Test Item Value Reference Range Interpretation Comments TOTAL BILI (test code = 4610056463) 0.5 mg/dL 0.1-1.1 BILI UNCON (test code = 2830549248) 0.3 mg/dL 0.1-1.1 BILI CONJ (test code = 5844250128) 0.0 mg/dL 0.0-0.3 T PROTEIN (test code = 1130611659) 5.9 g/dL 6.3-8.2 L ALBUMIN (test code = 7223344842) 3.0 g/dL 3.5-5.0 L ALK PHOS (test code = 4930841992) 60 U/L 34-122 ALTv (test code = 1742-6) 35 U/L 5-50 AST(SGOT) (test code = 1952504114) 48 U/L 13-40 H Lab Interpretation (test code = Abnormal 33479-6) [facility] (32576[facility] (ALB,T.PRO,BILI T,BU/BC,ALT,AST,ALK PHOS)2020-10-22 18:07:08 Test Item Value Reference Range Interpretation Comments TOTAL BILI (test code = 8638138717) 0.5 mg/dL 0.1-1.1 BILI UNCON (test code = 2187653060) 0.3 mg/dL 0.1-1.1 BILI CONJ (test code = 3356167701) 0.0 mg/dL 0.0-0.3 T PROTEIN (test code = 6481285291) 5.9 g/dL 6.3-8.2 L ALBUMIN (test code = 0292537911) 3.0 g/dL 3.5-5.0 L ALK PHOS (test code = 8925352091) 60 U/L 34-122 ALTv (test code = 1742-6) 35 U/L 5-50 AST(SGOT) (test code = 0038899468) 48 U/L 13-40 H Lab Interpretation (test code = Abnormal 89268-5) [facility] METABOLIC PANEL (NA, K, CL, CO2, GLUCOSE, BUN, CREATININE, CA)2020-10-22 18:07:08 Test Item Value Reference Range Interpretation Comments NA (test code = 137 mmol/L 135-145 6343466387) K (test code = 4.2 mmol/L 3.5-5.0 0558997538) CL (test code = 104 mmol/L 98-108 5330683716) CO2 TOTAL (test code = 23 mmol/L 23-31 2620244049) AGAP (test code = 2-16 2787262268) BUN (test code = 82 mg/dL 7-23 H 1998210210) GLUCOSE (test code = 84 mg/dL 70-110 2935564515) CREATININE (test code = 1.88 mg/dL 0.60-1.25 H 5664376545) CALCIUM (test code = 9.9 mg/dL 8.6-10.6 2895281359) eGFR (test code = mL/min/1.73m2 7633975701) JUAN LUIS (test code = JUAN LUIS) [...] tests). Lab Interpretation Abnormal (test code = 71428-3) [facility] (34648[facility] (ALB,T.PRO,BILI T,BU/BC,ALT,AST,ALK PHOS)2020-10-22 18:07:08 Test Item Value Reference Range Interpretation Comments TOTAL BILI (test code = 0201464283) 0.5 mg/dL 0.1-1.1 BILI UNCON (test code = 3031258436) 0.3 mg/dL 0.1-1.1 BILI CONJ (test code = 5799043602) 0.0 mg/dL 0.0-0.3 T PROTEIN (test code = 6047735347) 5.9 g/dL 6.3-8.2 L ALBUMIN (test code = 9877993804) 3.0 g/dL 3.5-5.0 L ALK PHOS (test code = 6795317417) 60 U/L 34-122 ALTv (test code = 1742-6) 35 U/L 5-50 AST(SGOT) (test code = 2811537467) 48 U/L 13-40 H Lab Interpretation (test code = Abnormal 94677-3) [facility]2021-[facility]-10 17:54:11 Test Item Value Reference Range Interpretation Comments Fibrinogen (test code = 0156839105) 585 mg/dL 167-453 H Lab Interpretation (test code = Abnormal 07922-1) [facility]AllenPROTHROMBIN TIME / [id number] 17:54:11 Test Item Value Reference Range Interpretation [...] tions. Lab Interpretation (test Abnormal code = 51251-6) [facility] 20 + LACTIC [id number] 17:44:46 Test Item Value Reference Range Interpretation Comments PH (test code = 2) 7.35-7.45 H PCO2 (test code = See_Comment L [Automat ed 4425886571) message] The sy stem which generated this result transmitted reference range : 35 - 45 mmHg. The reference range was not used to interpret this result as normal/abnormal . PO2 (test code = See_Comment H [Automated 2099290489) message] The sy stem which generated this result transmitted reference range : 80 - 100 mmHg. The reference range was not used to interpret this result as normal/abnormal . HCO3 (test code = See_Comment L [Automate d 7573534532) message] The sy stem which generated this result transmitted reference range : 22 - 26 mEq/L. The reference range was not used to interpret this result as normal/abnormal . BE (test code = See_Comment [Automated 4160602657) message] The sy stem which generated this result transmitted reference range : -3.0 - 3.0 mEq/ L. The reference r christine was not used to interpret this result as normal/abnormal . THB (test code = 10.9 g/dL 13.5-18.0 L 9273126233) %O2HB (test code = 97.7 % 94.0-99.0 1823215185) %COHB ART (test code = 0.3 % 0.0-1.5 9030907321) %METHB ART (test code = 0.3 % 0.4-1.5 L 1685975994) VOL%O2 ART (test code = 15.1 % 15.0-23.0 9529634630) NA (test code = 134 mmol/L 135-145 L 6125342213) K+ (test code = 4.2 mmol/L 3.5-5.0 5926535589) AC CA IONZ (test code = 5.10 mg/dL 4.50-5.30 5887880177) GLUCOSE (test code = 84 mg/dL 70-110 4168694117) LACTIC ACID (test code 1.39 mmol/L 0.50-2.20 = 5420915951) Lab Interpretation Abnormal (test code = 82897-3) [facility] Screen - Type and Screen expires at midnight on the 3rd day after it was drawn. A current Type and Screen is required when RBCs are requested. For all other blood products, a Type and Screen performed during the current hospitalization i...2020-05-03 21:04:13 Test Item Value Reference Range Interpretation Comments ABO & RH (test code A Positive Performe d at [facility] = 20) Laboratory [facility] [address] [place], [place] [id number] Free: [phone] A No. [id number] IAT (test code = Negative Performed a t [facility] 1185) Laboratory [facility] [address] [place] [address]Toll Free: [phone] A No. [id number] [facility]AllenTroponin [id number] 20:34:00 Test Item Value Reference Range Interpretation Comments TROPONIN I (test 0.034 ng/mL See_Comment [Automated code = 6697324908) message] The system which generated this result [...] ? Lab Interpretation Normal (test code = 95716-5) [facility] [id number] 20:31:00 Test Item Value Reference Range Interpretation Comments NT-proBNP (test code 5460 pg/mL See_Comment H [Autom ated = 2595426753) message] The system which generated this result transmitted reference range : <=125. The reference range was not used to interpret this result as normal/abnormal . JUAN LUIS (test code = JUAN LUIS) Biotin has been reported to cause a negative bias, interpret results relative to patient's use of biotin. Lab Interpretation Abnormal (test code = 67724-9) [facility] (NA, K, CL, CO2, GLUCOSE, BUN, CREATININE, CA)2020-05-03 20:22:00 Test Item Value Reference Range Interpretation Comments NA (test code = 137 mmol/L 135-145 1605470032) K (test code = 4.2 mmol/L 3.5-5 9198172368) CL (test code = 100 mmol/L 98-108 5018813375) CO2 TOTAL (test code = 28 mmol/L 23-31 2724098766) AGAP (test code = 2-16 3881343608) BUN (test code = 55 mg/dL 7-23 H 5831431324) GLUCOSE (test code = 141 mg/dL 70-110 H 3438959847) CREATININE (test code = 1.76 mg/dL 0.6-1.25 H 6221674226) CALCIUM (test code = 9.4 mg/dL 8.6-10.6 1402436204) eGFR Calculation mL/min/1.73m2 (Non-) (test code = 6713531031) eGFR Calculation mL/min/1.73m2 () (test code = 1662679679) JUAN LUIS (test code = JUAN LUIS) [...] tests). Lab Interpretation Abnormal (test code = 50103-1) [facility]Allen[facility] (ALB, T.PRO, BILI T, BU/BC, ALT, AST, ALK PHOS)2020-05-03 20:22:00 Test Item Value Reference Range Interpretation Comments TOTAL BILI (test code = 5229569071) 0.5 mg/dL 0.1-1.1 BILI UNCON (test code = 3168455919) 0.5 mg/dL 0.1-1.1 BILI CONJ (test code = 9243172126) 0.0 mg/dL 0-0.3 T PROTEIN (test code = 6965706363) 6.5 g/dL 6.3-8.2 ALBUMIN (test code = 6588597910) 3.6 g/dL 3.5-5 ALK PHOS (test code = 1970451778) 62 U/L 34-122 ALTv (test code = 1742-6) 49 U/L 5-50 AST(SGOT) (test code = 4999089790) 50 U/L 13-40 H Lab Interpretation (test code = Abnormal 37005-8) [facility] with [id number] 20:12:00 Test Item Value Reference Range Interpretation [...] (test code = 35.9 fL 38.5-51.6 L 02015-3) RDW-CV (test code = 15.5 % 12.1-15.4 H 788-0) PLT (test code = See_Comment [Automated 777-3) message] The sy stem which generated this result transmitted reference range : 150 - 328 10*3/ ?L. The reference r christine was not used to interpret this result as normal/abnormal . MPV (test code = 12.7 fL 9.8-13 97285-8) IPF % (test code = 3.0 % 1.2-10.7 Platelet count 5464964172) measured by fluorescence method. NRBC/100 WBC (test See_Comment [Automat ed code = 9757621318) message] The system which generated this result transmitted reference range : 0.0 - 10.0 /100 WBCs. The refer ence range was not u sed to interpret th is result as normal/abnormal . NRBC x10^3 (test code <0.01 See_Comment [Auto mated = 1096052896) message] The s ystem which generated this result transmitted reference range : 10*3/?L. The reference range was not used to interpret this result as normal/abnormal . GRAN MAT (NEUT) % 65.3 % (test code = 770-8) IMM GRAN % (test code 0.30 % = 4320731382) LYMPH % (test code = 19.0 % 736-9) MONO % (test code = 8.6 % 5905-5) EOS % (test code = 6.2 % 713-8) BASO % (test code = 0.6 % 706-2) GRAN MAT x10^3(ANC) 5.10 10*3/uL 1.99-6.95 (test code = 3081421881) IMM GRAN x10^3 (test <0.03 0-0.06 code = 6589935948) LYMPH x10^3 (test code 1.48 10*3/uL 1.09-3.23 = 731-0) MONO x10^3 (test code 0.67 10*3/uL 0.36-1.02 = 742-7) EOS x10^3 (test code = 0.48 10*3/uL 0.06-0.53 711-2) BASO x10^3 (test code 0.05 10*3/uL 0.01-0.09 = 704-7) Lab Interpretation Abnormal (test code = 01872-9) [facility] GLUCOSE (AUTOMATED)2019-10-28 13:00:00 Test Item Value Reference Range Interpretation Comments POCT GLU (test code = 8455644113) 89 mg/dL 70-110 Lab Interpretation (test code = Normal 03504-5) [facility] GLUCOSE (AUTOMATED)2019-10-28 10:36:00 Test Item Value Reference Range Interpretation Comments POCT GLU (test code = 1131358758) 223 mg/dL 70-110 H Lab Interpretation (test code = Abnormal 45588-0) [facility] [id number] 10:09:00 Test Item Value Reference Range Interpretation Comments NT-proBNP (test code 25110 pg/mL See_Comment H [Autom ated = 0796891599) message] The system which generated this result transmitted reference range : <=125. The reference range was not used to interpret this result as normal/abnormal . JUAN LUIS (test code = JUAN LUIS) Biotin has been reported to cause a negative bias, interpret results relative to patient's use of biotin. Lab Interpretation Abnormal (test code = 69355-9) [facility]AllenCOMP[facility] METABOLIC PANEL (80829)2019-10-28 10:06:00 Test Item Value Reference Range Interpretation Comments NA (test code = 136 mmol/L 135-145 4420910481) K (test code = 5.0 mmol/L 3.5-5 0671395608) CL (test code = 107 mmol/L 98-108 3992641212) CO2 TOTAL (test code = 27 mmol/L 23-31 0425048287) AGAP (test code = 2-16 0599846088) BUN (test code = 50 mg/dL 7-23 H 1194623659) GLUCOSE (test code = 82 mg/dL 70-110 4076322434) CREATININE (test code = 1.76 mg/dL 0.6-1.25 H 8367692105) TOTAL BILI (test code = 0.3 mg/dL 0.1-1.7 8635031474) CALCIUM (test code = 8.9 mg/dL 8.6-10.6 3831076361) T PROTEIN (test code = 5.8 g/dL 6.3-8.2 L 8046036025) ALBUMIN (test code = 3.0 g/dL 3.5-5 L 0368064280) ALK PHOS (test code = 56 U/L 34-122 8956875187) ALTv (test code = 25 U/L 5-50 1742-6) AST(SGOT) (test code = 32 U/L 13-40 2730810186) eGFR Calculation mL/min/1.73m2 (Non-) (test code = 5546630135) eGFR Calculation mL/min/1.73m2 () (test code = 2977698187) JUAN LUIS (test code = JUAN LUIS) [...] tests). Lab Interpretation Abnormal (test code = 76602-0) [facility] [id number] 10:06:00 Test Item Value Reference Range Interpretation Comments URIC ACID (test code = 7024473667) 6.2 mg/dL 3.6-8 Lab Interpretation (test code = Normal 11754-1) [facility]AllenCB WITH [id number] 09:42:00 Test Item Value Reference Range Interpretation Comments WBC (test code = See_Comment [Automated 1290-2) message] The sy stem which generated this [...] RDW-SD (test code = 47.8 fL 38.5-51.6 58986-9) RDW-CV (test code = 18.8 % 12.1-15.4 H 788-0) PLT (test code = See_Comment [Automated 777-3) message] The sy stem which generated this result transmitted reference range : 150 - 328 10*3/ ?L. The reference r christine was not used to interpret this result as normal/abnormal . MPV (test code = 11.6 fL 9.8-13 74532-9) IPF % (test code = 2.4 % 1.2-10.7 Platelet count 3175308633) measured by fluorescence method. NRBC/100 WBC (test See_Comment [Automat ed code = 0759226590) message] The system which generated this result transmitted reference range : 0.0 - 10.0 /100 WBCs. The refer ence range was not u sed to interpret th is result as normal/abnormal . NRBC x10^3 (test code <0.01 See_Comment [Auto mated = 4355852580) message] The s ystem which generated this result transmitted reference range : 10*3/?L. The reference range was not used to interpret this result as normal/abnormal . GRAN MAT (NEUT) % 55.9 % (test code = 770-8) IMM GRAN % (test code 0.30 % = 3650194286) LYMPH % (test code = 28.2 % 736-9) MONO % (test code = 9.1 % 5905-5) EOS % (test code = 5.3 % 713-8) BASO % (test code = 1.2 % 706-2) GRAN MAT x10^3(ANC) 3.88 10*3/uL 1.99-6.95 (test code = 7239155676) IMM GRAN x10^3 (test <0.03 0-0.06 code = 9558981039) LYMPH x10^3 (test code 1.96 10*3/uL 1.09-3.23 = 731-0) MONO x10^3 (test code 0.63 10*3/uL 0.36-1.02 = 742-7) EOS x10^3 (test code = 0.37 10*3/uL 0.06-0.53 711-2) BASO x10^3 (test code 0.08 10*3/uL 0.01-0.09 = 704-7) Lab Interpretation Abnormal (test code = 26769-7) [facility] GLUCOSE (AUTOMATED)2019-10-28 01:57:00 Test Item Value Reference Range Interpretation Comments POCT GLU (test code = 6006766300) 112 mg/dL 70-110 H Lab Interpretation (test code = Abnormal 84122-8) [facility] GLUCOSE (AUTOMATED)2019-10-27 16:31:00 Test Item Value Reference Range Interpretation Comments POCT GLU (test code = 4166035758) 142 mg/dL 70-110 H Lab Interpretation (test code = Abnormal 92326-3) [facility] GLUCOSE (AUTOMATED)2019-10-27 16:31:00 Test Item Value Reference Range Interpretation Comments POCT GLU (test code = 3199124931) 138 mg/dL 70-110 H Lab Interpretation (test code = Abnormal 99201-8) [facility]AllenPROFILE / [id number] 16:06:00 Test Item Value Reference Range Interpretation Comments WBC (test code = See_Comment [Automated message] 6690-2) The system [employer] generated this result transmitted ref erence range: 4.20 - 1 0.70 10*3/?L. The reference range was not used to int erpret this result as normal/abnormal . RBC (test code = 789-8) See_Comment L [Au tomated message] The system [employer] generated this result transmitted ref erence range: [...] 777-3) See_Comment [Au tomated message] The system [employer] generated this result transmitted ref erence range: 150 - 32 8 10*3/?L. The reference range was not used to int erpret this result as normal/abnormal . MPV (test code = 11.4 fL 9.8-13 87686-3) RDW-CV (test code = 19.0 % 12.1-15.4 H 788-0) RDW-SD (test code = 48.5 fL 38.5-51.6 54400-9) NRBC x10^3 (test code = <0.01 See_Comment [Au tomated message] 7748607458) The system [employer] generated this result transmitted ref erence range: 10*3/?L. The reference range was not used to int erpret this result as normal/abnormal . NRBC/100 WBC (test code See_Comment [Au tomated message] = 6213183212) The system [employer] generated this result transmitted ref erence range: 0.0 - 10 .0 /100 WBCs. The reference range was not used to int erpret this result as normal/abnormal . IPF % (test code = 2.5 % 1.2-10.7 Platelet count 6971498070) measured by fluorescence me thod. Lab Interpretation Abnormal (test code = 96883-3) [facility] [id number] 15:51:00 Test Item Value Reference Range Interpretation Comments TROPONIN I (test 0.043 ng/mL See_Comment H [Automated code = 9149787285) message] The system which generated this result [...] ? Lab Interpretation Abnormal (test code = 58536-0) [facility]Allen[facility]A NITROGEN, URINE [id number] 15:40:00 Test Item Value Reference Range Interpretation Comments UREA N UR (test code = 6132131789) 531 mg/dL [facility])2019-10-27 12:43:00 Test Item Value Reference Range Interpretation Comments POCT GLU (test code = 5462713791) 140 mg/dL 70-110 H Lab Interpretation (test code = Abnormal 27907-5) [facility]AllenPROTEIN CREAT RATIO URINE [id number] 11:43:00 Test Item Value Reference Range Interpretation Comments T. PROT U (test code = 2888-6) 584 mg/dL CREAT U (test code = 5532771946) 28.0 mg/dL Protein/Creatinine Ratio Urine 0.0-2.0 H (test code = 9416404637) Lab Interpretation (test code = Abnormal 67193-2) [facility]AllenURINALYSIS2020-04-14 11:12:00 Test Item Value Reference Range Interpretation Comments APPEARANCE (test code = Clear Clear 5713821165) COLOR (test code = Yellow Yellow 3802172653) PH (test code = 4.8-8.0 9006520392) SP GRAVITY (test code = 1.003-1.030 8084112394) GLU U QUAL (test code = 50 mg/dL Normal A 3851523975) BLOOD (test code = Negative Negative 7391088395) KETONES (test code = Negative Negative 7688593192) PROTEIN (test code = 100 mg/dL Negative A 2887-8) UROBILIN (test code = Normal Normal 2299845674) BILIRUBIN (test code = Negative Negative 5404639354) NITRITE (test code = Negative Negative 8091945961) LEUK SILVIO (test code = Negative Negative 8004578550) RBC/HPF (test code = See_Comment H [Autom ated message] 2192976908) The system [employer] generated this result transmit tennille reference range : 0 - 3 HPF. The refe rence range was not u sed to interpret th is result as normal/abnormal . WBC/HPF (test code = See_Comment [Autom ated message] 5363147896) The system [employer] generated this result transmit tennille reference range : 0 - 5 HPF. The refe rence range was not u sed to interpret th is result as normal/abnormal . BACTERIA (test code = Few Negative A 4928029071) MUCOUS (test code = Slight Negative LPF A 6167842598) SQ EPITH (test code = <1 HPF 0433023232) HYAL CAST (test code = See_Comment H [Aut omated message] 2981879914) The system [employer] generated this result transmit tennille reference range : <=2 LPF. The refere nce range was not u sed to interpret th is result as normal/abnormal . Lab Interpretation (test Abnormal code = 51516-7) [facility]AllenSODIUM, URINE [id number] 11:07:00 Test Item Value Reference Range Interpretation Comments NA URINE (test code = 7908418474) 45 mmol/L [facility] GLUCOSE (AUTOMATED)2019-10-27 10:49:00 Test Item Value Reference Range Interpretation Comments POCT GLU (test code = 6277631065) 163 mg/dL 70-110 H Lab Interpretation (test code = Abnormal 00331-6) [facility]AllenTROPONIN [id number] 10:10:00 Test Item Value Reference Range Interpretation Comments TROPONIN I (test 0.035 ng/mL See_Comment H [Automated code = 3186354107) message] The system which generated this result [...] ? Lab Interpretation Abnormal (test code = 41538-1) [facility] [id number] 10:07:00 Test Item Value Reference Range Interpretation Comments NT-proBNP (test code 8960 pg/mL See_Comment H [Autom ated = 3681459494) message] The system which generated this result transmitted reference range : <=125. The reference range was not used to interpret this result as normal/abnormal . JUAN LUIS (test code = JUAN LUIS) Biotin has been reported to cause a negative bias, interpret results relative to patient's use of biotin. Lab Interpretation Abnormal (test code = 26482-2) [facility]OLIC PAN[facility] (47755)2019-10-27 10:03:00 Test Item Value Reference Range Interpretation Comments NA (test code = 136 mmol/L 135-145 3208196262) K (test code = 5.2 mmol/L 3.5-5 H 2486923071) CL (test code = 106 mmol/L 98-108 3745903448) CO2 TOTAL (test code = 25 mmol/L 23-31 9675052111) AGAP (test code = 2-16 3237224121) BUN (test code = 54 mg/dL 7-23 H 3528757943) GLUCOSE (test code = 139 mg/dL 70-110 H 3780259756) CREATININE (test code = 1.42 mg/dL 0.6-1.25 H 1273345691) TOTAL BILI (test code = 0.2 mg/dL 0.1-1.6 4999484367) CALCIUM (test code = 8.7 mg/dL 8.6-10.6 0857874300) T PROTEIN (test code = 5.8 g/dL 6.3-8.2 L 9682247128) ALBUMIN (test code = 2.9 g/dL 3.5-5 L 1022369904) ALK PHOS (test code = 53 U/L 34-122 0586910726) ALTv (test code = 21 U/L 5-50 1742-6) AST(SGOT) (test code = 30 U/L 13-40 9658795063) eGFR Calculation mL/min/1.73m2 (Non-) (test code = 3841576633) eGFR Calculation mL/min/1.73m2 () (test code = 3827258983) JUAN LUIS (test code = JUAN LUIS) [...] tests). Lab Interpretation Abnormal (test code = 97112-5) [facility]2020-[facility]-14 10:01:00 Test Item Value Reference Range Interpretation Comments MAGNESIUM (test code = 4592211578) 2.5 mg/dL 1.7-2.4 H Lab Interpretation (test code = Abnormal 55721-8) [facility] [id number] 10:00:00 Test Item Value Reference Range Interpretation Comments URIC ACID (test code = 8017116180) 5.7 mg/dL 3.6-8 Lab Interpretation (test code = Normal 67550-1) [facility]AllenSEDIMENTATION [id number] 09:58:00 Test Item Value Reference Range Interpretation Comments ESR (test code = See_Comment H [Automated message] 4720554305) The system [employer] generated this result transmitted ref erence range: 0 - 10 m m/HR. The reference r christine was not used to interpret this result as normal/abnor mal. Lab Interpretation (test Abnormal code = 71970-0) [facility]AllenFERRITIN [id number] 09:45:00 Test Item Value Reference Range Interpretation Comments FERRITIN (test code = 829.0 ng/mL 18-464 H 5087926845) JUAN LUIS (test code = JUAN LUIS) Biotin has been reported to cause a negative bias, interpret results relative to patient's use of biotin. Lab Interpretation (test Abnormal code = 51867-1) [facility] WITH [id number] 09:31:00 Test Item Value Reference Range Interpretation [...] RDW-SD (test code = 46.8 fL 38.5-51.6 45468-8) RDW-CV (test code = 19.1 % 12.1-15.4 H 788-0) PLT (test code = See_Comment [Automated 777-3) message] The sy stem which generated this result transmitted reference range : 150 - 328 10*3/ ?L. The reference r christine was not used to interpret this result as normal/abnormal . MPV (test code = 10.9 fL 9.8-13 45395-0) NRBC/100 WBC (test See_Comment [Automat ed code = 4293570051) message] The system which generated this result transmitted reference range : 0.0 - 10.0 /100 WBCs. The refer ence range was not u sed to interpret th is result as normal/abnormal . NRBC x10^3 (test code <0.01 See_Comment [Auto mated = 3029255280) message] The s ystem which generated this result transmitted reference range : 10*3/?L. The reference range was not used to interpret this result as normal/abnormal . GRAN MAT (NEUT) % 79.8 % (test code = 770-8) IMM GRAN % (test code 0.20 % = 8695843397) LYMPH % (test code = 11.9 % 736-9) MONO % (test code = 7.0 % 5905-5) EOS % (test code = 0.6 % 713-8) BASO % (test code = 0.5 % 706-2) GRAN MAT x10^3(ANC) 7.01 10*3/uL 1.99-6.95 H (test code = 8069991165) IMM GRAN x10^3 (test <0.03 0-0.06 code = 0606954093) LYMPH x10^3 (test code 1.04 10*3/uL 1.09-3.23 L = 731-0) MONO x10^3 (test code 0.61 10*3/uL 0.36-1.02 = 742-7) EOS x10^3 (test code = 0.05 10*3/uL 0.06-0.53 L 711-2) BASO x10^3 (test code 0.04 10*3/uL 0.01-0.09 = 704-7) Lab Interpretation Abnormal (test code = 99404-5) [facility] [id number] 09:24:00 Test Item Value Reference Range Interpretation Comments IRON (test code = 8524554464) 46 ug/dL 50-160 L TIBC (test code = 1714278355) 256 ug/dL 250-410 % FE SAT (test code = 2272460207) 18 % 20-50 L Lab Interpretation (test code = Abnormal 82668-7) [facility] [id number] 09:22:00 Test Item Value Reference Range Interpretation Comments TROPONIN I (test 0.040 ng/mL See_Comment H [Automated code = 9741848267) message] The system which generated this result [...] ? Lab Interpretation Abnormal (test code = 01168-9) [facility]AllenGLYCOSYLATED HEMOGLOBIN (A1C)2019-10-27 09:18:00 Test Item Value Reference [...] Indicated Lab Interpretation Normal (test code = 37247-6) [facility] [id number] 09:13:00 Test Item Value Reference Range Interpretation Comments URIC ACID (test code = 4887162268) 6.2 mg/dL 3.6-8 Lab Interpretation (test code = Normal 09099-9) [facility]AllenHEPATIC FUNCTION PANEL (80680) (ALB,T.PRO,BILI T,BU/BC,ALT,AST,ALK PHOS)2019-10-27 09:10:00 Test Item Value Reference Range Interpretation Comments TOTAL BILI (test code = 9270361262) 0.2 mg/dL 0.1-1.1 BILI UNCON (test code = 3735350719) 0.4 mg/dL 0.1-1.1 BILI CONJ (test code = 2708188239) 0.0 mg/dL 0-0.3 T PROTEIN (test code = 9776134870) 7.6 g/dL 6.3-8.2 ALBUMIN (test code = 6076396779) 4.0 g/dL 3.5-5 ALK PHOS (test code = 4703533300) 66 U/L 34-122 ALTv (test code = 1742-6) 29 U/L 5-50 AST(SGOT) (test code = 7236251323) 106 U/L 13-40 H Lab Interpretation (test code = Abnormal 29099-6) [facility]AllenLIPID PANEL (63279)(TOTAL CHOLESTEROL, TRIGLYCERIDES, HDL)2019-10-27 09:10:00 Test Item Value Reference Range Interpretation Comments CHOL (test code = 122 mg/dL 120-200 5556086686) HDL (test code = 68 mg/dL >40 5108600529) HDLC RATIO (test code = See_Comment [Au tomated message] 5723023955) The system [employer] generated this result transmit tennille reference range : <=5.0. The refe rence range was not u sed to interpret th is result as normal/abnormal . TRIG (test code = 31 mg/dL 30-170 6414557509) LDL CHOL (test code = 48 mg/dL See_Comment [Auto mated message] 30596-0) The system [employer] generated this result transmit tennille reference range : <=160. The refe rence range was not u sed to interpret th is result as normal/abnormal . VLDL (test code = 6 mg/dL 5-60 7551847108) Lab Interpretation (test Normal code = 31873-7) [facility]AllenCREATINE [id number] 09:10:00 Test Item Value Reference Range Interpretation Comments CK (test code = 5454796776) 174 U/L 33-194 Lab Interpretation (test code = Normal 52988-9) [facility]AllenLIPASE2020-04-14 09:10:00 Test Item Value Reference Range Interpretation Comments LIPASE (test code = 8798178903) 115 U/L 0-220 Lab Interpretation (test code = Normal 08026-6) [facility]MAGNESIUM2020-04-14 09:10:00 Test Item Value Reference Range Interpretation Comments MAGNESIUM (test code = 1048567570) 2.7 mg/dL 1.7-2.4 H Lab Interpretation (test code = Abnormal 01189-1) [facility]AllenPHOSPHORUS2020-04-14 09:10:00 Test Item Value Reference Range Interpretation Comments PHOSPHORUS (test code = 7462808753) 4.4 mg/dL 2.5-5 Lab Interpretation (test code = Normal 08874-1) [facility] [id number] 09:09:00 Test Item Value Reference Range Interpretation Comments URIC ACID (test code = 9804311837) 6.3 mg/dL 3.6-8 Lab Interpretation (test code = Normal 37149-8) [facility] GLUCOSE (AUTOMATED)2019-10-27 08:46:00 Test Item Value Reference Range Interpretation Comments POCT GLU (test code = 4059362672) 165 mg/dL 70-110 H Lab Interpretation (test code = Abnormal 06109-3) [facility] GLUCOSE (AUTOMATED)2019-10-27 06:48:00 Test Item Value Reference Range Interpretation Comments POCT GLU (test code = 9454043230) 103 mg/dL 70-110 Lab Interpretation (test code = Normal 88132-1) [facility] GLUCOSE (AUTOMATED)2019-10-27 05:32:00 Test Item Value Reference Range Interpretation Comments POCT GLU (test code = 7063068760) 82 mg/dL 70-110 Lab Interpretation (test code = Normal 38855-0) [facility]AllenCORONAVIRUS COVID-19 [id number] 04:55:00 Test Item Value Reference Range Interpretation Comments SARS-CoV-2 (test code = Not Detected Not Detected 12162-5) JUAN LUIS (test code = JUAN LUIS) ID NOW COVID-19 Assay is an isothermal nucleic acid amplification test intended for the qualitative detection of nucleic acid from SARS-CoV-2 viral RNA in nasopharyngeal ([employer]) specimens. It is used under Emergency Use [...] indicated. Lab Interpretation Normal (test code = 62769-5) [facility] WITH [id number] 04:50:00 Test Item Value Reference Range Interpretation Comments WBC (test code = See_Comment [Automated 9390-2) message] The sy stem which generated this [...] RDW-SD (test code = 49.4 fL 38.5-51.6 05230-6) RDW-CV (test code = 19.4 % 12.1-15.4 H 788-0) PLT (test code = See_Comment [Automated 777-3) message] The sy stem which generated this result transmitted reference range : 150 - 328 10*3/ ?L. The reference r christine was not used to interpret this result as normal/abnormal . MPV (test code = 11.8 fL 9.8-13 47122-2) IPF % (test code = 2.6 % 1.2-10.7 Platelet count 5954877830) measured by fluorescence method. NRBC/100 WBC (test See_Comment [Automat ed code = 0567618047) message] The system which generated this result transmitted reference range : 0.0 - 10.0 /100 WBCs. The refer ence range was not u sed to interpret th is result as normal/abnormal . NRBC x10^3 (test code <0.01 See_Comment [Auto mated = 4487684499) message] The s ystem which generated this result transmitted reference range : 10*3/?L. The reference range was not used to interpret this result as normal/abnormal . GRAN MAT (NEUT) % 74.7 % (test code = 770-8) IMM GRAN % (test code 0.40 % = 4720779266) LYMPH % (test code = 11.6 % 736-9) MONO % (test code = 10.8 % 5905-5) EOS % (test code = 1.9 % 713-8) BASO % (test code = 0.6 % 706-2) GRAN MAT x10^3(ANC) 7.51 10*3/uL 1.99-6.95 H (test code = 4380931694) IMM GRAN x10^3 (test 0.04 10*3/uL 0-0.06 code = 8110330863) LYMPH x10^3 (test code 1.16 10*3/uL 1.09-3.23 = 731-0) MONO x10^3 (test code 1.08 10*3/uL 0.36-1.02 H = 742-7) EOS x10^3 (test code = 0.19 10*3/uL 0.06-0.53 711-2) BASO x10^3 (test code 0.06 10*3/uL 0.01-0.09 = 704-7) Lab Interpretation Abnormal (test code = 20026-0) [facility]2019-10-27 04:33:00 Test Item Value Reference Range Interpretation Comments POCT GLU (test code = 0236918645) 51 mg/dL 70-110 L Lab Interpretation (test code = Abnormal 01535-7) [facility] METABOLIC PANEL (NA, K, CL, CO2, GLUCOSE, BUN, CREATININE, CA)2019-10-27 03:51:00 Test Item Value Reference Range Interpretation Comments NA (test code = 140 mmol/L 135-145 0103417730) K (test code = 4.7 mmol/L 3.5-5 7924517050) CL (test code = 106 mmol/L 98-108 8890413700) CO2 TOTAL (test code = 27 mmol/L 23-31 6438377686) AGAP (test code = 2-16 5561395102) BUN (test code = 59 mg/dL 7-23 H 8334620627) GLUCOSE (test code = <20 70-110 LL 7546144018) CREATININE (test code = 1.57 mg/dL 0.6-1.25 H 8665172830) CALCIUM (test code = 9.6 mg/dL 8.6-10.6 5740140606) eGFR Calculation mL/min/1.73m2 (Non-) (test code = 2086792045) eGFR Calculation mL/min/1.73m2 () (test code = 1749025371) JUAN LUIS (test code = JUAN LUIS) [...] tests). Lab Interpretation Abnormal (test code = 61455-6) [facility] GLUCOSE (AUTOMATED)2019-10-27 03:34:00 Test Item Value Reference Range Interpretation Comments POCT GLU (test code = 3379215051) 69 mg/dL 70-110 L Lab Interpretation (test code = Abnormal 87135-5) [facility] GLUCOSE (AUTOMATED)2019-10-27 03:01:00 Test Item Value Reference Range Interpretation Comments POCT GLU (test code = 9075567170) 26 mg/dL 70-110 LL Lab Interpretation (test code = Abnormal 38662-0) [facility] GLUCOSE (AUTOMATED)2019-10-01 16:55:00 Test Item Value Reference Range Interpretation Comments POCT GLU (test code = 5342061567) 182 mg/dL 70-110 H Lab Interpretation (test code = Abnormal 98698-5) [facility] (NA, K, CL, CO2, GLUCOSE, BUN, CREATININE, CA)2019-10-01 13:17:00 Test Item Value Reference Range Interpretation Comments NA (test code = 137 mmol/L 135-145 0679465148) K (test code = 5.1 mmol/L 3.5-5 H 8624524800) CL (test code = 104 mmol/L 98-108 6247672494) CO2 TOTAL (test code = 24 mmol/L 23-31 5930836112) AGAP (test code = 2-16 6413897707) BUN (test code = 40 mg/dL 7-23 H 8701896529) GLUCOSE (test code = 98 mg/dL 70-110 5190623639) CREATININE (test code = 1.72 mg/dL 0.6-1.25 H 5988412002) CALCIUM (test code = 8.3 mg/dL 8.6-10.6 L 0898249050) eGFR Calculation mL/min/1.73m2 (Non-) (test code = 7611579669) eGFR Calculation mL/min/1.73m2 () (test code = 3840417039) JUAN LUIS (test code = JUAN LUIS) [...] tests). Lab Interpretation Abnormal (test code = 80353-1) [facility] GLUCOSE (AUTOMATED)2019-10-01 13:04:00 Test Item Value Reference Range Interpretation Comments POCT GLU (test code = 9704932002) 163 mg/dL 70-110 H Lab Interpretation (test code = Abnormal 14910-6) [facility] GLUCOSE (AUTOMATED)2019-10-01 02:08:00 Test Item Value Reference Range Interpretation Comments POCT GLU (test code = 9888145370) 156 mg/dL 70-110 H Lab Interpretation (test code = Abnormal 53976-6) [facility] GLUCOSE (AUTOMATED)2019-09-30 21:47:00 Test Item Value Reference Range Interpretation Comments POCT GLU (test code = 4303227989) 139 mg/dL 70-110 H Lab Interpretation (test code = Abnormal 46338-3) [id number]:06:00 Test Item Value Reference Range Interpretation Comments Occult (guaiac) Blood (test code = Negative Negative 2335-8) Lab Interpretation (test code = Normal 42067-4) [facility] GLUCOSE (AUTOMATED)2019-09-30 17:06:00 Test Item Value Reference Range Interpretation Comments POCT GLU (test code = 7207134223) 83 mg/dL 70-110 Lab Interpretation (test code = Normal 18851-8) [facility] GLUCOSE (AUTOMATED)2019-09-30 13:35:00 Test Item Value Reference Range Interpretation Comments POCT GLU (test code = 7303781233) 225 mg/dL 70-110 H Lab Interpretation (test code = Abnormal 86457-2) [facility] (NA, K, CL, CO2, GLUCOSE, BUN, CREATININE, CA)2019-09-30 08:40:00 Test Item Value Reference Range Interpretation Comments NA (test code = 137 mmol/L 135-145 3757646638) K (test code = 4.7 mmol/L 3.5-5 6498096310) CL (test code = 105 mmol/L 98-108 7710209839) CO2 TOTAL (test code = 24 mmol/L 23-31 4679201147) AGAP (test code = 2-16 8751573350) BUN (test code = 45 mg/dL 7-23 H 3831113383) GLUCOSE (test code = 227 mg/dL 70-110 H 6179177916) CREATININE (test code = 1.89 mg/dL 0.6-1.25 H 1656856073) CALCIUM (test code = 8.4 mg/dL 8.6-10.6 L 7542175776) eGFR Calculation mL/min/1.73m2 (Non-) (test code = 8137712957) eGFR Calculation mL/min/1.73m2 () (test code = 6943050964) JUAN LUIS (test code = JUAN LUIS) [...] tests). Lab Interpretation Abnormal (test code = 36472-9) [facility]AllenMagnesium [id number] 08:40:00 Test Item Value Reference Range Interpretation Comments MAGNESIUM (test code = 6826637244) 2.2 mg/dL 1.7-2.4 Lab Interpretation (test code = Normal 74101-4) [facility]AllenCT THORAX WO [id number] 03:37:29 1. 6.4 x 6.9 cm left [...] no acute or suspicious osseous abnormalities. ? [facility], Radiant Results Inft User - 09/29/2019 10:38 PMCDTORDERING CLINICIAN: ROSIBEL FLORESNIQUE: Multidetector helical scanning of the chest was [...] lymphadenopathy.6. Status post CABG.RL: 6190End of report [facility] PasoUrinalysis2020-03-18 02:46:00 Test Item Value Reference Range Interpretation Comments APPEARANCE (test code = Clear Clear 5850559295) COLOR (test code = Straw Yellow A 3149798370) PH (test code = 4.8-8.0 8293657301) SP GRAVITY (test code = 1.003-1.030 5093505786) GLU U QUAL (test code = Normal Normal 6644250709) BLOOD (test code = Negative Negative 0915331263) KETONES (test code = Negative Negative 5728727661) PROTEIN (test code = 100 mg/dL Negative A 2887-8) UROBILIN (test code = Normal Normal 5348599409) BILIRUBIN (test code = Negative Negative 6718123889) NITRITE (test code = Negative Negative 8533683990) LEUK SILVIO (test code = Negative Negative 6861152301) RBC/HPF (test code = See_Comment [Autom ated message] 2093023836) The system [employer] generated this result transmit tennille reference range : 0 - 3 HPF. The refe rence range was not u sed to interpret th is result as normal/abnormal . WBC/HPF (test code = <1 See_Comment [Autom ated message] 4030722413) The system [employer] generated this result transmit tennille reference range : 0 - 5 HPF. The refe rence range was not u sed to interpret th is result as normal/abnormal . BACTERIA (test code = Negative Negative 0292154135) Lab Interpretation (test Abnormal code = 62599-7) [facility]2019-09-30 01:30:00 Test Item Value Reference Range Interpretation Comments POCT GLU (test code = 8655909089) 180 mg/dL 70-110 H Lab Interpretation (test code = Abnormal 37377-4) [facility]AllenTroponin [id number] 22:35:00 Test Item Value Reference Range Interpretation Comments TROPONIN I (test 0.029 ng/mL See_Comment [Automated code = 1764590478) message] The system which generated this result [...] ? Lab Interpretation Normal (test code = 23481-1) [facility]AllenN-TERMINAL [id number] 22:35:00 Test Item Value Reference Range Interpretation Comments NT-proBNP (test code 42998 pg/mL See_Comment H [Autom ated = 1239345510) message] The system which generated this result transmitted reference range : <=125. The reference range was not used to interpret this result as normal/abnormal . JUAN LUIS (test code = JUAN LUIS) Biotin has been reported to cause a negative bias, interpret results relative to patient's use of biotin. Lab Interpretation Abnormal (test code = 66080-4) [facility]AllenXR FOOT 3+ VW [id number] 22:25:411. No acute fracture. EXAM: Right foot [...] swelling is seen in the midfoot.IMPRESSION1.No acute fracture.[facility] 1 [id number] 22:23:02CHEST ONE VIEW HISTORY: ?SOB TECHNIQUE: ?AP [...] lefthemidiaphragm2. Small left pleural effusion and mild cardiomegalyUnUniversity Medical Center of [facility] PasoBarussell [facility] Metabolic Panel (NA, K, CL, CO2, GLUCOSE, BUN, CREATININE, CA)2019-09-29 22:23:00 Test Item Value Reference Range Interpretation Comments NA (test code = 136 mmol/L 135-145 1976556351) K (test code = 5.3 mmol/L 3.5-5 H 5896513487) CL (test code = 104 mmol/L 98-108 9577107435) CO2 TOTAL (test code = 23 mmol/L 23-31 5925665865) AGAP (test code = 2-16 1835746332) BUN (test code = 50 mg/dL 7-23 H 3750359875) GLUCOSE (test code = 76 mg/dL 70-110 3195009908) CREATININE (test code = 1.92 mg/dL 0.6-1.25 H 4007232003) CALCIUM (test code = 8.6 mg/dL 8.6-10.6 0310137327) eGFR Calculation mL/min/1.73m2 (Non-) (test code = 4154998074) eGFR Calculation mL/min/1.73m2 () (test code = 8671480748) JUAN LUIS (test code = JUAN LUIS) [...] tests). Lab Interpretation Abnormal (test code = 93069-7) [facility]AllenHepatic Function Panel (ALB, T.PRO, BILI T, BU/BC, ALT, AST, ALK PHOS)2019-09-29 22:23:00 Test Item Value Reference Range Interpretation Comments TOTAL BILI (test code = 8490646954) 0.3 mg/dL 0.1-1.1 BILI UNCON (test code = 1316271235) 0.2 mg/dL 0.1-1.1 BILI CONJ (test code = 7730098604) 0.0 mg/dL 0-0.3 T PROTEIN (test code = 9232964566) 6.3 g/dL 6.3-8.2 ALBUMIN (test code = 4940840726) 3.1 g/dL 3.5-5 L ALK PHOS (test code = 4746355600) 95 U/L 34-122 ALTv (test code = 1742-6) 15 U/L 5-50 AST(SGOT) (test code = 2319995397) 19 U/L 13-40 Lab Interpretation (test code = Abnormal 45466-5) [facility] McAllenaPTT2020-03-17 22:13:00 Test Item Value Reference Range Interpretation Comments APTT Patient (test code = See_Comment [ Automated message] 3173-2) The system [employer] generated this result transmitted ref erence range: 26 - 36 Seconds. The re ference range was not u sed to interpret this result as normal/abnor mal. Lab Interpretation (test Normal code = 92215-3) [facility] McAllenProthrombin Time (PT) / [id number] 22:13:00 Test Item Value Reference Range Interpretation Comments PROTIME PATIENT (test See_Comment [Auto mated message] code = 5964-2) The system [employer] generated this result transmitted ref erence range: 10.1 - 1 2.6 Seconds. The re ference range was not u sed to interpret this result as normal/abnor mal. INR (test code = 6301-6) Nor mal INR <1.1; Warfarin Therap eutic range 2.0 to 3. 0 or 2.5 to 3.5, dep ending upon the indica tions. Lab Interpretation (test Normal code = 90635-7) [facility]AllenCB WITH [id number] 22:09:00 Test Item Value Reference Range Interpretation [...] (test code = 55.0 fL 38.5-51.6 H 67043-3) RDW-CV (test code = 22.0 % 12.1-15.4 H 788-0) PLT (test code = See_Comment H [Automated 777-3) message] The sy stem which generated this result transmitted reference range : 150 - 328 10*3/ ?L. The reference r christine was not used to interpret this result as normal/abnormal . MPV (test code = 11.1 fL 9.8-13 23146-2) NRBC/100 WBC (test See_Comment [Automat ed code = 9431340208) message] The system which generated this result transmitted reference range : 0.0 - 10.0 /100 WBCs. The refer ence range was not u sed to interpret th is result as normal/abnormal . NRBC x10^3 (test code <0.01 See_Comment [Auto mated = 6931311683) message] The s ystem which generated this result transmitted reference range : 10*3/?L. The reference range was not used to interpret this result as normal/abnormal . GRAN MAT (NEUT) % 65.4 % (test code = 770-8) IMM GRAN % (test code 0.30 % = 3101079333) LYMPH % (test code = 18.2 % 736-9) MONO % (test code = 10.9 % 5905-5) EOS % (test code = 4.3 % 713-8) BASO % (test code = 0.9 % 706-2) GRAN MAT x10^3(ANC) 5.73 10*3/uL 1.99-6.95 (test code = 2297871355) IMM GRAN x10^3 (test 0.03 10*3/uL 0-0.06 code = 4014609829) LYMPH x10^3 (test code 1.60 10*3/uL 1.09-3.23 = 731-0) MONO x10^3 (test code 0.96 10*3/uL 0.36-1.02 = 742-7) EOS x10^3 (test code = 0.38 10*3/uL 0.06-0.53 711-2) BASO x10^3 (test code 0.08 10*3/uL 0.01-0.09 = 704-7) Lab Interpretation Abnormal (test code = 86623-8) [facility]AllenCOMP. METABOLIC PANEL (98551)2019-09-29 16:09:00 Test Item Value Reference Range Interpretation Comments NA (test code = 136 mmol/L 135-145 8504669854) K (test code = 5.4 mmol/L 3.5-5 H 0871882167) CL (test code = 105 mmol/L 98-108 4684193549) CO2 TOTAL (test code = 23 mmol/L 23-31 4900580196) AGAP (test code = 2-16 8397151026) BUN (test code = 53 mg/dL 7-23 H 2047074528) GLUCOSE (test code = 242 mg/dL 70-110 H 9906446139) CREATININE (test code = 1.97 mg/dL 0.6-1.25 H 1679145438) TOTAL BILI (test code = 0.1 mg/dL 0.1-1.3 4003162080) CALCIUM (test code = 8.6 mg/dL 8.6-10.6 4095407271) T PROTEIN (test code = 6.0 g/dL 6.3-8.2 L 9527065532) ALBUMIN (test code = 2.9 g/dL 3.5-5 L 8380630845) ALK PHOS (test code = 91 U/L 34-122 7563640735) ALTv (test code = 15 U/L 5-50 1742-6) AST(SGOT) (test code = 22 U/L 13-40 9423589970) eGFR Calculation mL/min/1.73m2 (Non-) (test code = 0118946171) eGFR Calculation mL/min/1.73m2 () (test code = 3327642245) JUAN LUIS (test code = JUAN LUIS) [...] tests). Lab Interpretation Abnormal (test code = 43309-4) [facility] WITH [id number] 15:42:00 Test Item Value Reference Range Interpretation Comments WBC (test code = See_Comment [Automated 1590-2) message] The sy stem which generated this [...] (test code = 55.4 fL 38.5-51.6 H 30627-6) RDW-CV (test code = 22.5 % 12.1-15.4 H 788-0) PLT (test code = See_Comment [Automated 777-3) message] The sy stem which generated this result transmitted reference range : 150 - 328 10*3/ ?L. The reference r christine was not used to interpret this result as normal/abnormal . MPV (test code = 12.0 fL 9.8-13 80125-3) NRBC/100 WBC (test See_Comment [Automat ed code = 4600569253) message] The system which generated this result transmitted reference range : 0.0 - 10.0 /100 WBCs. The refer ence range was not u sed to interpret th is result as normal/abnormal . NRBC x10^3 (test code <0.01 See_Comment [Auto mated = 9914746579) message] The s ystem which generated this result transmitted reference range : 10*3/?L. The reference range was not used to interpret this result as normal/abnormal . GRAN MAT (NEUT) % 71.8 % (test code = 770-8) IMM GRAN % (test code 0.40 % = 7329253318) LYMPH % (test code = 13.9 % 736-9) MONO % (test code = 9.4 % 5905-5) EOS % (test code = 3.8 % 713-8) BASO % (test code = 0.7 % 706-2) GRAN MAT x10^3(ANC) 5.49 10*3/uL 1.99-6.95 (test code = 9488783207) IMM GRAN x10^3 (test 0.03 10*3/uL 0-0.06 code = 9078061380) LYMPH x10^3 (test code 1.06 10*3/uL 1.09-3.23 L = 731-0) MONO x10^3 (test code 0.72 10*3/uL 0.36-1.02 = 742-7) EOS x10^3 (test code = 0.29 10*3/uL 0.06-0.53 711-2) BASO x10^3 (test code 0.05 10*3/uL 0.01-0.09 = 704-7) Lab Interpretation Abnormal (test code = 78696-3) [facility] [id number] 15:03:28HISTORY: S/P CABG. TECHNIQUE: PA and lateral [...] minimal congestion/atelectatic changes inthe left lung base.[facility], Radiant Results Inft User - 09/29/2019 [...] minimal congestion/atelectatic changes inthe left lung base. [facility]AllenREFERRFL OCCUPATIONAL [id number] 00:00:00Consult received and chart reviewed via [employer]. ?Please refer to progress note for details. ? Gordo [phone] pgr.[facility]AllenREFERRFL OCCUPATIONAL [id number] 00:00:00Consult received and verbal order placed 09-21-2019 for patient seen in clinic 09-21-2019. ?Please refer to progress note for details. Gordo [phone] pgr.[facility] 2 [id number] 01:43:48Impression:1. Persistent but improved left pleural effusion [...] weeks ago Ordering physician[facility].Comparison: AugustFindings:Median sternotomy present. Large cardiac silhouette is seen. Small lefteffusion and basilar atelectasis is present. This has improved. Nopneumothorax. No lobar consolidation. Bone demineralization stable. Theremainder is unchanged.IMPRESSIONImpression:1. Persistent but improved left pleural effusion and left basilaratelectasis.[facility]2019-09-15 18:20:00 Test Item Value Reference Range Interpretation Comments POCT GLU (test code = 9400036622) 160 mg/dL 70-110 H Lab Interpretation (test code = Abnormal 56353-8) [facility]AllenSPUTUM [id number] 18:07:00 Test Item Value Reference Range Interpretation Comments SPUTUM CULTURE 1+ Respiratory alla: (test code = Commensal upper respiratory 622-1) microorganisms only. Gram stain (test Occasional (Rare) code = 664-3) Polymorphonuclear leukocytes JUAN LUIS (test code = Bacterial pathogens JUAN LUIS) associated with lower respiratory infections were not identified, which include Pseudomonas aeruginosa and Staphylococcus aureus (MRSA or MSSA). [facility] METABOLIC PANEL (NA, K, CL, CO2, GLUCOSE, BUN, CREATININE, CA)2019-09-15 17:31:00 Test Item Value Reference Range Interpretation Comments NA (test code = 137 mmol/L 135-145 1945245519) K (test code = 4.2 mmol/L 3.5-5 3453059469) CL (test code = 99 mmol/L 98-108 3865227266) CO2 TOTAL (test code = 30 mmol/L 23-31 2601076992) AGAP (test code = 2-16 4098700189) BUN (test code = 31 mg/dL 7-23 H 2880959615) GLUCOSE (test code = 156 mg/dL 70-110 H 1361744337) CREATININE (test code = 0.94 mg/dL 0.6-1.25 3996050757) CALCIUM (test code = 8.1 mg/dL 8.6-10.6 L 7708502761) eGFR Calculation mL/min/1.73m2 (Non-) (test code = 5781029414) eGFR Calculation mL/min/1.73m2 () (test code = 8816785477) JUAN LUIS (test code = JUAN LUIS) [...] tests). Lab Interpretation Abnormal (test code = 66687-3) [facility] WITH [id number] 17:11:00 Test Item Value Reference Range Interpretation [...] (test code = 55.8 fL 38.5-51.6 H 73086-1) RDW-CV (test code = 22.6 % 12.1-15.4 H 788-0) PLT (test code = See_Comment H [Automated 777-3) message] The sy stem which generated this result transmitted reference range : 150 - 328 10*3/ ?L. The reference r christine was not used to interpret this result as normal/abnormal . MPV (test code = 10.6 fL 9.8-13 25362-1) NRBC/100 WBC (test See_Comment [Automat ed code = 0529958774) message] The system which generated this result transmitted reference range : 0.0 - 10.0 /100 WBCs. The refer ence range was not u sed to interpret th is result as normal/abnormal . NRBC x10^3 (test code <0.01 See_Comment [Auto mated = 5653272076) message] The s ystem which generated this result transmitted reference range : 10*3/?L. The reference range was not used to interpret this result as normal/abnormal . GRAN MAT (NEUT) % 78.3 % (test code = 770-8) IMM GRAN % (test code 0.30 % = 4793761352) LYMPH % (test code = 11.7 % 736-9) MONO % (test code = 7.2 % 5905-5) EOS % (test code = 2.2 % 713-8) BASO % (test code = 0.3 % 706-2) GRAN MAT x10^3(ANC) 9.12 10*3/uL 1.99-6.95 H (test code = 5605350141) IMM GRAN x10^3 (test 0.04 10*3/uL 0-0.06 code = 0871601240) LYMPH x10^3 (test code 1.36 10*3/uL 1.09-3.23 = 731-0) MONO x10^3 (test code 0.84 10*3/uL 0.36-1.02 = 742-7) EOS x10^3 (test code = 0.26 10*3/uL 0.06-0.53 711-2) BASO x10^3 (test code 0.03 10*3/uL 0.01-0.09 = 704-7) Lab Interpretation Abnormal (test code = 53443-1) [facility] GLUCOSE (AUTOMATED)2019-09-15 14:16:00 Test Item Value Reference Range Interpretation Comments POCT GLU (test code = 6512977881) 114 mg/dL 70-110 H Lab Interpretation (test code = Abnormal 13861-9) [facility] GLUCOSE (AUTOMATED)2019-09-15 03:22:00 Test Item Value Reference Range Interpretation Comments POCT GLU (test code = 1273512249) 128 mg/dL 70-110 H Lab Interpretation (test code = Abnormal 21121-7) [facility] GLUCOSE (AUTOMATED)2019-09-14 22:37:00 Test Item Value Reference Range Interpretation Comments POCT GLU (test code = 5848774317) 133 mg/dL 70-110 H Lab Interpretation (test code = Abnormal 83279-8) [facility] GLUCOSE (AUTOMATED)2019-09-14 18:45:00 Test Item Value Reference Range Interpretation Comments POCT GLU (test code = 2729970419) 143 mg/dL 70-110 H Lab Interpretation (test code = Abnormal 45213-8) [facility] 1 [id number] 14:19:08 Bilateral hazy and patchy airspace opacities [...] leftlung may represent an atelectasis or pneumonia. [facility]OW[facility] GLU[facility]SE [facility]2019-09-14 13:30:00 Test Item Value Reference Range Interpretation Comments POCT GLU (test code = 7766691862) 78 mg/dL 70-110 Lab Interpretation (test code = Normal 05825-3) [facility] METABOLIC PANEL (NA, K, CL, CO2, GLUCOSE, BUN, CREATININE, CA)2019-09-14 10:04:00 Test Item Value Reference Range Interpretation Comments NA (test code = 136 mmol/L 135-145 7101723627) K (test code = 4.2 mmol/L 3.5-5 9142731355) CL (test code = 102 mmol/L 98-108 7396039779) CO2 TOTAL (test code = 30 mmol/L 23-31 3130175758) AGAP (test code = 2-16 9143466902) BUN (test code = 33 mg/dL 7-23 H 3080257643) GLUCOSE (test code = 98 mg/dL 70-110 6603371419) CREATININE (test code = 1.00 mg/dL 0.6-1.25 0035891051) CALCIUM (test code = 7.5 mg/dL 8.6-10.6 L 2896203857) eGFR Calculation mL/min/1.73m2 (Non-) (test code = 1422515251) eGFR Calculation mL/min/1.73m2 () (test code = 6201436903) JUAN LUIS (test code = JUAN LUIS) [...] tests). Lab Interpretation Abnormal (test code = 35753-1) [facility] Test Item Value Reference Range Interpretation Comments MAGNESIUM (test code = 5998030291) 2.1 mg/dL 1.7-2.4 Lab Interpretation (test code = Normal 40065-3) [facility] GLUCOSE (AUTOMATED)2019-09-14 08:13:00 Test Item Value Reference Range Interpretation Comments POCT GLU (test code = 3190457636) 71 mg/dL 70-110 Lab Interpretation (test code = Normal 51961-6) [facility] GLUCOSE (AUTOMATED)2019-09-14 02:25:00 Test Item Value Reference Range Interpretation Comments POCT GLU (test code = 7068421386) 53 mg/dL 70-110 L Lab Interpretation (test code = Abnormal 80572-8) [facility] GLUCOSE (AUTOMATED)2019-09-13 23:06:00 Test Item Value Reference Range Interpretation Comments POCT GLU (test code = 7527077506) 140 mg/dL 70-110 H Lab Interpretation (test code = Abnormal 54266-3) [facility] GLUCOSE (AUTOMATED)2019-09-13 17:45:00 Test Item Value Reference Range Interpretation Comments POCT GLU (test code = 4151001499) 260 mg/dL 70-110 H Lab Interpretation (test code = Abnormal 76363-8) [facility] GLUCOSE (AUTOMATED)2019-09-13 14:07:00 Test Item Value Reference Range Interpretation Comments POCT GLU (test code = 4062353961) 194 mg/dL 70-110 H Lab Interpretation (test code = Abnormal 94517-1) [facility] (NA, K, CL, CO2, GLUCOSE, BUN, CREATININE, CA)2019-09-13 10:14:00 Test Item Value Reference Range Interpretation Comments NA (test code = 135 mmol/L 135-145 6109631445) K (test code = 4.4 mmol/L 3.5-5 4548904247) CL (test code = 101 mmol/L 98-108 0960697384) CO2 TOTAL (test code = 27 mmol/L 23-31 8181224590) AGAP (test code = 2-16 9624960971) BUN (test code = 34 mg/dL 7-23 H 6695658874) GLUCOSE (test code = 178 mg/dL 70-110 H 4526697112) CREATININE (test code = 1.02 mg/dL 0.6-1.25 8117748132) CALCIUM (test code = 7.8 mg/dL 8.6-10.6 L 7729937815) eGFR Calculation mL/min/1.73m2 (Non-) (test code = 3768489720) eGFR Calculation mL/min/1.73m2 () (test code = 0080648549) JUAN LUIS (test code = JUAN LUIS) [...] tests). Lab Interpretation Abnormal (test code = 69950-2) [facility]2020-[facility]-01 10:14:00 Test Item Value Reference Range Interpretation Comments MAGNESIUM (test code = 3996078712) 2.2 mg/dL 1.7-2.4 Lab Interpretation (test code = Normal 34498-6) [facility] WITH [id number] 10:01:00 Test Item Value Reference Range Interpretation [...] (test code = 57.0 fL 38.5-51.6 H 27716-8) RDW-CV (test code = 22.5 % 12.1-15.4 H 788-0) PLT (test code = See_Comment [Automated 777-3) message] The sy stem which generated this result transmitted reference range : 150 - 328 10*3/ ?L. The reference r christine was not used to interpret this result as normal/abnormal . MPV (test code = 10.4 fL 9.8-13 61905-8) NRBC/100 WBC (test See_Comment [Automat ed code = 3814727674) message] The system which generated this result transmitted reference range : 0.0 - 10.0 /100 WBCs. The refer ence range was not u sed to interpret th is result as normal/abnormal . NRBC x10^3 (test code <0.01 See_Comment [Auto mated = 3321998399) message] The s ystem which generated this result transmitted reference range : 10*3/?L. The reference range was not used to interpret this result as normal/abnormal . GRAN MAT (NEUT) % 77.6 % (test code = 770-8) IMM GRAN % (test code 0.70 % = 0534000717) LYMPH % (test code = 11.2 % 736-9) MONO % (test code = 8.7 % 5905-5) EOS % (test code = 1.5 % 713-8) BASO % (test code = 0.3 % 706-2) GRAN MAT x10^3(ANC) 9.01 10*3/uL 1.99-6.95 H (test code = 1324632235) IMM GRAN x10^3 (test 0.08 10*3/uL 0-0.06 H code = 3276616032) LYMPH x10^3 (test code 1.30 10*3/uL 1.09-3.23 = 731-0) MONO x10^3 (test code 1.01 10*3/uL 0.36-1.02 = 742-7) EOS x10^3 (test code = 0.17 10*3/uL 0.06-0.53 711-2) BASO x10^3 (test code 0.03 10*3/uL 0.01-0.09 = 704-7) Lab Interpretation Abnormal (test code = 30564-8) [facility]AL[facility]ONIN2020-03-01 07:12:00 Test Item Value Reference Range Interpretation Comments Procalcitonin (test 0.14 ng/mL <0.07 H code = 2297242525) JUAN LUIS (test code = JUAN LUIS) [...] lung abscess/empyema. For further information please refer to:[email or web address] Lab Interpretation Abnormal (test code = 09302-6) [facility]2019-09-13 02:20:00 Test Item Value Reference Range Interpretation Comments POCT GLU (test code = 9921012992) 227 mg/dL 70-110 H Lab Interpretation (test code = Abnormal 42982-5) [facility]AllenTROPONIN [id number] 00:35:00 Test Item Value Reference Range Interpretation Comments TROPONIN I (test 0.087 ng/mL See_Comment H [Automated code = 7134066913) message] The system which generated this result [...] ? Lab Interpretation Abnormal (test code = 42804-6) [facility]2020-03-01 00:23:00 Test Item Value Reference Range Interpretation Comments MAGNESIUM (test code = 1795112524) 2.1 mg/dL 1.7-2.4 Lab Interpretation (test code = Normal 84136-6) [facility] GLUCOSE (AUTOMATED)2019-09-12 22:52:00 Test Item Value Reference Range Interpretation Comments POCT GLU (test code = 2091227206) 135 mg/dL 70-110 H Lab Interpretation (test code = Abnormal 44580-1) [facility] GLUCOSE (AUTOMATED)2019-09-12 19:33:00 Test Item Value Reference Range Interpretation Comments POCT GLU (test code = 2615933795) 150 mg/dL 70-110 H Lab Interpretation (test code = Abnormal 59778-3) [facility]enaPTT2020-02-29 18:28:00 Test Item Value Reference Range Interpretation Comments APTT Patient (test See_Comment [Automat ed code = 3173-2) message] The system which generated this result transmitted reference range : 23 - 38 Seconds . The reference range was not used to interpr et this result as normal/abnormal . JUAN LUIS (test code = JUAN LUIS) The [facility] patient population mean normal value for aPTT is 30 seconds. Lab Interpretation Normal (test code = 54742-8) [facility] 1 [id number] 16:45:37Impression:1. Left basilar atelectasis or pneumonia with [...] osseousstructures unremarkable. Cardiac silhouette is enlarged. [facility], Radiant Results Inft User - 09/12/2019 10:49 AM CSTClinical statement: Chest pain Ordering physician: Sing er, Sang Chest single view.Comparison: None available at time of dictationFindings:Patchy basilaropacities left lung base and small left effusion is seen. Nopneumothorax. Central congestion withoutedema. Soft tissues and osseousstructures unremarkable. Cardiac silhouette is enlarged.IMPRESSIONImpr ession:1. Left basilar atelectasis or pneumonia with small left effusion. Nocomparisons are available at time of dictation.2. Central congestion without edema.[facility]oL[facility] Acid Whole [id number] 16:20:00 Test Item Value Reference Range Interpretation Comments LACTIC ACID (test code = 1.00 mmol/L 0.5-2.2 7855042988) Lab Interpretation (test code = Normal 19293-6) [facility]AllenTROPONIN [id number] 16:11:00 Test Item Value Reference Range Interpretation Comments TROPONIN I (test 0.104 ng/mL See_Comment H [Automated code = 1518844804) message] The system which generated this result [...] ? Lab Interpretation Abnormal (test code = 37466-4) [facility]. METABOLIC PANEL (32684)2019-09-12 16:09:00 Test Item Value Reference Range Interpretation Comments NA (test code = 135 mmol/L 135-145 0131965931) K (test code = 5.1 mmol/L 3.5-5 H 4737485833) CL (test code = 101 mmol/L 98-108 8243631589) CO2 TOTAL (test code = 27 mmol/L 23-31 5131509628) AGAP (test code = 2-16 7088027730) BUN (test code = 39 mg/dL 7-23 H 1222100906) GLUCOSE (test code = 118 mg/dL 70-110 H 7908804896) CREATININE (test code = 1.12 mg/dL 0.6-1.25 9805876306) TOTAL BILI (test code = 0.4 mg/dL 0.1-1.5 1757532810) CALCIUM (test code = 8.6 mg/dL 8.6-10.6 7279674628) T PROTEIN (test code = 6.1 g/dL 6.3-8.2 L 8308653704) ALBUMIN (test code = 3.1 g/dL 3.5-5 L 0832479888) ALK PHOS (test code = 76 U/L 34-122 9488450092) ALTv (test code = 13 U/L 5-50 1742-6) AST(SGOT) (test code = 23 U/L 13-40 8149047149) eGFR Calculation mL/min/1.73m2 (Non-) (test code = 2875010117) eGFR Calculation mL/min/1.73m2 () (test code = 2402573888) JUAN LUIS (test code = JUAN LUIS) [...] tests). Lab Interpretation Abnormal (test code = 97349-5) [facility]AllenLIPASE2020-02-29 16:09:00 Test Item Value Reference Range Interpretation Comments LIPASE (test code = 4262280375) 29 U/L 0-220 Lab Interpretation (test code = Normal 83589-5) [facility]AllenMAGNESIUM2020-02-29 16:09:00 Test Item Value Reference Range Interpretation Comments MAGNESIUM (test code = 3420907608) 2.3 mg/dL 1.7-2.4 Lab Interpretation (test code = Normal 61372-7) [facility]AllenN-TERMINAL [id number] 16:09:00 Test Item Value Reference Range Interpretation Comments NT-proBNP (test code 88933 pg/mL See_Comment H [Autom ated = 3006064447) message] The system which generated this result transmitted reference range : <=125. The reference range was not used to interpret this result as normal/abnormal . JUAN LUIS (test code = JUAN LUIS) Biotin has been reported to cause a negative bias, interpret results relative to patient's use of biotin. Lab Interpretation Abnormal (test code = 59747-2) [facility] McAllenPROTHROMBIN TIME / [id number] 15:51:00 Test Item Value Reference Range Interpretation [...] tions. Lab Interpretation (test Normal code = 74237-3) [facility] WITH [id number] 15:42:00 Test Item Value Reference Range Interpretation [...] (test code = 57.1 fL 38.5-51.6 H 37741-8) RDW-CV (test code = 22.9 % 12.1-15.4 H 788-0) PLT (test code = See_Comment H [Automated 777-3) message] The system which generated this result transmit tennille reference range : 150 - 328 10*3/ ?L. The reference range was not u sed to interpret th is result as normal/abnormal . MPV (test code = 11.1 fL 9.8-13 93162-8) NRBC/100 WBC (test See_Comment [Automat ed code = 5905340520) message] The system which generated this result transmit tennille reference range : 0.0 - 10.0 /100 WBCs. The reference range was not used to interpret this result as normal/abnormal . NRBC x10^3 (test code <0.01 See_Comment [Auto mated = 5804189109) message] The system which generated this result transmit tennille reference range : 10*3/?L. The reference range was not used to interpret this result as normal/abnormal . GRAN MAT (NEUT) % 76.8 % (test code = 770-8) IMM GRAN % (test code 0.70 % = 8651093276) LYMPH % (test code = 11.4 % 736-9) MONO % (test code = 8.6 % 5905-5) EOS % (test code = 2.0 % 713-8) BASO % (test code = 0.5 % 706-2) GRAN MAT x10^3(ANC) 11.37 10*3/uL 1.99-6.95 H (test code = 7224621048) IMM GRAN x10^3 (test 0.11 10*3/uL 0-0.06 H code = 2092850265) LYMPH x10^3 (test code 1.68 10*3/uL 1.09-3.23 = 731-0) MONO x10^3 (test code 1.28 10*3/uL 0.36-1.02 H = 742-7) EOS x10^3 (test code = 0.29 10*3/uL 0.06-0.53 711-2) BASO x10^3 (test code 0.07 10*3/uL 0.01-0.09 = 704-7) Lab Interpretation Abnormal (test code = 84040-4) [facility] GLUCOSE (AUTOMATED)2019-09-12 15:27:00 Test Item Value Reference Range Interpretation Comments POCT GLU (test code = 4017926670) 128 mg/dL 70-110 H Lab Interpretation (test code = Abnormal 61389-3) [facility] GLUCOSE (AUTOMATED)2019-09-07 18:25:00 Test Item Value Reference Range Interpretation Comments POCT GLU (test code = 8198832527) 92 mg/dL 70-110 Lab Interpretation (test code = Normal 95315-2) [facility] GLUCOSE (AUTOMATED)2019-09-07 14:39:00 Test Item Value Reference Range Interpretation Comments POCT GLU (test code = 3730842033) 118 mg/dL 70-110 H Lab Interpretation (test code = Abnormal 92567-8) [facility] GLUCOSE (AUTOMATED)2019-09-07 03:00:00 Test Item Value Reference Range Interpretation Comments POCT GLU (test code = 9027449408) 111 mg/dL 70-110 H Lab Interpretation (test code = Abnormal 18976-0) [facility] GLUCOSE (AUTOMATED)2019-09-06 23:30:00 Test Item Value Reference Range Interpretation Comments POCT GLU (test code = 0343635187) 66 mg/dL 70-110 L Lab Interpretation (test code = Abnormal 07923-3) [facility] GLUCOSE (AUTOMATED)2019-09-06 18:24:00 Test Item Value Reference Range Interpretation Comments POCT GLU (test code = 4675086623) 94 mg/dL 70-110 Lab Interpretation (test code = Normal 95586-1) [facility] GLUCOSE (AUTOMATED)2019-09-06 14:00:00 Test Item Value Reference Range Interpretation Comments POCT GLU (test code = 2740637729) 158 mg/dL 70-110 H Lab Interpretation (test code = Abnormal 57413-4) [facility] METABOLIC PANEL (NA, K, CL, CO2, GLUCOSE, BUN, CREATININE, CA)2019-09-06 07:25:00 Test Item Value Reference Range Interpretation Comments NA (test code = 134 mmol/L 135-145 L 1588198927) K (test code = 4.1 mmol/L 3.5-5 3895734500) CL (test code = 101 mmol/L 98-108 4180605523) CO2 TOTAL (test code = 27 mmol/L 23-31 6416070524) AGAP (test code = 2-16 4577403824) BUN (test code = 44 mg/dL 7-23 H 8323931440) GLUCOSE (test code = 138 mg/dL 70-110 H 9448201190) CREATININE (test code = 0.95 mg/dL 0.6-1.25 2761773197) CALCIUM (test code = 7.6 mg/dL 8.6-10.6 L 3018865149) eGFR Calculation mL/min/1.73m2 (Non-) (test code = 5107411847) eGFR Calculation mL/min/1.73m2 () (test code = 7334679456) JUAN LUIS (test code = JUAN LUIS) [...] tests). Lab Interpretation Abnormal (test code = 48261-4) [facility]2020-[facility]-23 07:25:00 Test Item Value Reference Range Interpretation Comments PHOSPHORUS (test code = 8918504077) 2.6 mg/dL 2.5-5 Lab Interpretation (test code = Normal 89135-0) [facility]CB WITH [id number] 07:10:00 Test Item Value Reference Range Interpretation Comments WBC (test code = See_Comment [Automated 1790-2) message] The sy stem which generated this [...] (test code = 59.2 fL 38.5-51.6 H 13250-3) RDW-CV (test code = 22.7 % 12.1-15.4 H 788-0) PLT (test code = See_Comment [Automated 777-3) message] The sy stem which generated this result transmitted reference range : 150 - 328 10*3/ ?L. The reference r christine was not used to interpret this result as normal/abnormal . MPV (test code = 11.4 fL 9.8-13 41654-9) NRBC/100 WBC (test See_Comment [Automat ed code = 7973463458) message] The system which generated this result transmitted reference range : 0.0 - 10.0 /100 WBCs. The refer ence range was not u sed to interpret th is result as normal/abnormal . NRBC x10^3 (test code <0.01 See_Comment [Auto mated = 4642428356) message] The s ystem which generated this result transmitted reference range : 10*3/?L. The reference range was not used to interpret this result as normal/abnormal . GRAN MAT (NEUT) % 73.2 % (test code = 770-8) IMM GRAN % (test code 0.50 % = 1281203494) LYMPH % (test code = 11.5 % 736-9) MONO % (test code = 11.2 % 5905-5) EOS % (test code = 3.3 % 713-8) BASO % (test code = 0.3 % 706-2) GRAN MAT x10^3(ANC) 7.78 10*3/uL 1.99-6.95 H (test code = 3916147797) IMM GRAN x10^3 (test 0.05 10*3/uL 0-0.06 code = 0742745212) LYMPH x10^3 (test code 1.22 10*3/uL 1.09-3.23 = 731-0) MONO x10^3 (test code 1.19 10*3/uL 0.36-1.02 H = 742-7) EOS x10^3 (test code = 0.35 10*3/uL 0.06-0.53 711-2) BASO x10^3 (test code 0.03 10*3/uL 0.01-0.09 = 704-7) Lab Interpretation Abnormal (test code = 08998-3) [facility] 1 [id number] 01:35:34Impression: Stable findings with obliteration of the [...] are osteopenic. The upper abdomen is unremarkable. [facility], Radiant Results Inft User - 09/05/2019 7:36 [...] of the left hemidiaphragm and the leftcostophrenic angle..[facility] GLUCOSE (AUTOMATED)2019-09-06 01:25:00 Test Item Value Reference Range Interpretation Comments POCT GLU (test code = 0421166715) 98 mg/dL 70-110 Lab Interpretation (test code = Normal 18363-9) [facility] GLUCOSE (AUTOMATED)2019-09-05 23:11:00 Test Item Value Reference Range Interpretation Comments POCT GLU (test code = 6740263361) 76 mg/dL 70-110 Lab Interpretation (test code = Normal 11598-7) [facility] GLUCOSE (AUTOMATED)2019-09-05 18:45:00 Test Item Value Reference Range Interpretation Comments POCT GLU (test code = 7222392417) 99 mg/dL 70-110 Lab Interpretation (test code = Normal 18836-2) [facility] GLUCOSE (AUTOMATED)2019-09-05 13:48:00 Test Item Value Reference Range Interpretation Comments POCT GLU (test code = 9080359497) 229 mg/dL 70-110 H Lab Interpretation (test code = Abnormal 70623-1) [facility]:00 Test Item Value Reference Range Interpretation Comments PHOSPHORUS (test code = 6329628158) 3.4 mg/dL 2.5-5 Lab Interpretation (test code = Normal 22343-6) [facility] (NA, K, CL, CO2, GLUCOSE, BUN, CREATININE, CA)2019-09-05 10:04:00 Test Item Value Reference Range Interpretation Comments NA (test code = 135 mmol/L 135-145 2475264817) K (test code = 3.7 mmol/L 3.5-5 7578700632) CL (test code = 103 mmol/L 98-108 9369680250) CO2 TOTAL (test code = 26 mmol/L 23-31 7918873100) AGAP (test code = 2-16 9338999859) BUN (test code = 40 mg/dL 7-23 H 4680267990) GLUCOSE (test code = 173 mg/dL 70-110 H 5839623148) CREATININE (test code = 1.17 mg/dL 0.6-1.25 5194796998) CALCIUM (test code = 7.4 mg/dL 8.6-10.6 L 2828704194) eGFR Calculation mL/min/1.73m2 (Non-) (test code = 4435103595) eGFR Calculation mL/min/1.73m2 () (test code = 6306167370) JUAN LUIS (test code = JUAN LUIS) [...] tests). Lab Interpretation Abnormal (test code = 68486-1) [facility] 10:04:00 Test Item Value Reference Range Interpretation Comments MAGNESIUM (test code = 1826287596) 2.2 mg/dL 1.7-2.4 Lab Interpretation (test code = Normal 04438-7) [facility] WITH [id number] 09:53:00 Test Item Value Reference Range Interpretation [...] (test code = 55.0 fL 38.5-51.6 H 73619-1) RDW-CV (test code = 22.1 % 12.1-15.4 H 788-0) PLT (test code = See_Comment L [Automated 777-3) message] The sy stem which generated this result transmitted reference range : 150 - 328 10*3/ ?L. The reference r christine was not used to interpret this result as normal/abnormal . MPV (test code = 10.6 fL 9.8-13 00641-3) NRBC/100 WBC (test See_Comment [Automat ed code = 7378960989) message] The system which generated this result transmitted reference range : 0.0 - 10.0 /100 WBCs. The refer ence range was not u sed to interpret th is result as normal/abnormal . NRBC x10^3 (test code <0.01 See_Comment [Auto mated = 4061641224) message] The s ystem which generated this result transmitted reference range : 10*3/?L. The reference range was not used to interpret this result as normal/abnormal . GRAN MAT (NEUT) % 78.0 % (test code = 770-8) IMM GRAN % (test code 0.70 % = 2519460895) LYMPH % (test code = 8.8 % 736-9) MONO % (test code = 10.6 % 5905-5) EOS % (test code = 1.6 % 713-8) BASO % (test code = 0.3 % 706-2) GRAN MAT x10^3(ANC) 9.06 10*3/uL 1.99-6.95 H (test code = 6056244635) IMM GRAN x10^3 (test 0.08 10*3/uL 0-0.06 H code = 6801345591) LYMPH x10^3 (test code 1.02 10*3/uL 1.09-3.23 L = 731-0) MONO x10^3 (test code 1.23 10*3/uL 0.36-1.02 H = 742-7) EOS x10^3 (test code = 0.18 10*3/uL 0.06-0.53 711-2) BASO x10^3 (test code 0.03 10*3/uL 0.01-0.09 = 704-7) Lab Interpretation Abnormal (test code = 55769-4) [facility] GLUCOSE (AUTOMATED)2019-09-05 05:58:00 Test Item Value Reference Range Interpretation Comments POCT GLU (test code = 0394676752) 160 mg/dL 70-110 H Lab Interpretation (test code = Abnormal 63077-4) [facility] GLUCOSE (AUTOMATED)2019-09-05 03:22:00 Test Item Value Reference Range Interpretation Comments POCT GLU (test code = 2418260359) 56 mg/dL 70-110 L Lab Interpretation (test code = Abnormal 68077-1) [facility] GLUCOSE (AUTOMATED)2019-09-05 03:22:00 Test Item Value Reference Range Interpretation Comments POCT GLU (test code = 5986748279) 103 mg/dL 70-110 Lab Interpretation (test code = Normal 44525-0) [facility] GLUCOSE (AUTOMATED)2019-09-05 02:41:00 Test Item Value Reference Range Interpretation Comments POCT GLU (test code = 1542866928) 98 mg/dL 70-110 Lab Interpretation (test code = Normal 44358-5) [facility] GLUCOSE (AUTOMATED)2019-09-04 18:03:00 Test Item Value Reference Range Interpretation Comments POCT GLU (test code = 5276295924) 173 mg/dL 70-110 H Lab Interpretation (test code = Abnormal 16862-8) [facility]ST 1 [id number] 14:25:52 No acute intrathoracic abnormality. PROCEDURE: XR [...] abnormality. Sternotomy sutures are noted.IMPRESSIONNo acute intrathoracic abnormality.[facility]2019-09-04 14:18:00 Test Item Value Reference Range Interpretation Comments POCT GLU (test code = 0755066136) 198 mg/dL 70-110 H Lab Interpretation (test code = Abnormal 40055-1) [facility]AllenIONIZED [id number] 13:12:00 Test Item Value Reference Range Interpretation Comments IONIZED CA (test code = 4.60 mg/dL 4.5-5.3 9286441692) PH SERUM (test code = 0209275877) 7.35-7.45 H Lab Interpretation (test code = Abnormal 92258-7) [facility] WITH [id number] 11:39:00 Test Item Value Reference Range Interpretation [...] (test code = 56.0 fL 38.5-51.6 H 72600-0) RDW-CV (test code = 21.9 % 12.1-15.4 H 788-0) PLT (test code = See_Comment [Automated 777-3) message] The system which generated this result transmit tennille reference range : 150 - 328 10*3/ ?L. The reference range was not u sed to interpret th is result as normal/abnormal . MPV (test code = 11.4 fL 9.8-13 39918-6) NRBC/100 WBC (test See_Comment [Automat ed code = 4087521493) message] The system which generated this result transmit tennille reference range : 0.0 - 10.0 /100 WBCs. The reference range was not used to interpret this result as normal/abnormal . NRBC x10^3 (test code <0.01 See_Comment [Auto mated = 6115775186) message] The system which generated this result transmit tennille reference range : 10*3/?L. The reference range was not used to interpret this result as normal/abnormal . SEG % (test code = 88 % 33-76 H 43277-6) BAND % (test code = 3 % 0-1 H 65404-9) LYMPH % (test code = 6 % 14-54 L 23438-5) MONO % (test code = 3 % 0-4 64662-1) ANC (test code = 12.63 10*3/uL 1.99-6.95 H 0910403634) YVES CELLS (test code 2+ See_Comment A [Auto mated = 7790-9) message] The system which generated this result transmit tennille reference range : (none). The reference range was not used to interpret this result as normal/abnormal . ELLIPTO/OVAL (test 2+ See_Comment A [Automat ed code = 75588-3) message] The system which generated this result transmit tennille reference range : (none). The reference range was not used to interpret this result as normal/abnormal . SCHISTOCYTES (test 1+ A code = 800-3) TOXIC CHANGES (test Present A code = 803-7) PLT ESTIMATE (test Normal Normal code = 9317-9) Lab Interpretation Abnormal (test code = 08458-3) [facility] METABOLIC PANEL (NA, K, CL, CO2, GLUCOSE, BUN, CREATININE, CA)2019-09-04 11:26:00 Test Item Value Reference Range Interpretation Comments NA (test code = 136 mmol/L 135-145 1166806564) K (test code = 3.4 mmol/L 3.5-5 L 7867227265) CL (test code = 103 mmol/L 98-108 2370259437) CO2 TOTAL (test code = 26 mmol/L 23-31 0442060943) AGAP (test code = 2-16 6215557128) BUN (test code = 42 mg/dL 7-23 H 5069100477) GLUCOSE (test code = 184 mg/dL 70-110 H 9141943854) CREATININE (test code = 1.14 mg/dL 0.6-1.25 4587581851) CALCIUM (test code = 8.0 mg/dL 8.6-10.6 L 7476836465) eGFR Calculation mL/min/1.73m2 (Non-) (test code = 0995175037) eGFR Calculation mL/min/1.73m2 () (test code = 3726394495) JUAN LUIS (test code = JUAN LUIS) [...] tests). Lab Interpretation Abnormal (test code = 38659-5) [facility] 11:26:00 Test Item Value Reference Range Interpretation Comments MAGNESIUM (test code = 0886563525) 2.0 mg/dL 1.7-2.4 Lab Interpretation (test code = Normal 95652-1) [facility] GLUCOSE (AUTOMATED)2019-09-04 11:05:00 Test Item Value Reference Range Interpretation Comments POCT GLU (test code = 5076326376) 202 mg/dL 70-110 H Lab Interpretation (test code = Abnormal 71551-5) [facility] GLUCOSE (AUTOMATED)2019-09-04 09:12:00 Test Item Value Reference Range Interpretation Comments POCT GLU (test code = 1830904468) 190 mg/dL 70-110 H Lab Interpretation (test code = Abnormal 57472-2) [facility] GLUCOSE (AUTOMATED)2019-09-04 05:59:00 Test Item Value Reference Range Interpretation Comments POCT GLU (test code = 3703844017) 144 mg/dL 70-110 H Lab Interpretation (test code = Abnormal 75764-0) [facility] GLUCOSE (AUTOMATED)2019-09-04 03:37:00 Test Item Value Reference Range Interpretation Comments POCT GLU (test code = 3795640076) 138 mg/dL 70-110 H Lab Interpretation (test code = Abnormal 27414-2) [facility] GLUCOSE (AUTOMATED)2019-09-04 02:36:00 Test Item Value Reference Range Interpretation Comments POCT GLU (test code = 54 mg/dL 70-110 L Notifi ed Provider 5816162466) Lab Interpretation (test Abnormal code = 53662-4) [facility] GLUCOSE (AUTOMATED)2019-09-04 02:35:00 Test Item Value Reference Range Interpretation Comments POCT GLU (test code = 8054838406) 137 mg/dL 70-110 H Lab Interpretation (test code = Abnormal 51906-7) [facility] GLUCOSE (AUTOMATED)2019-09-03 23:29:00 Test Item Value Reference Range Interpretation Comments POCT GLU (test code = 1125879000) 68 mg/dL 70-110 L Lab Interpretation (test code = Abnormal 09201-1) [facility] GLUCOSE (AUTOMATED)2019-09-03 23:06:00 Test Item Value Reference Range Interpretation Comments POCT GLU (test code = 2547341073) 69 mg/dL 70-110 L Lab Interpretation (test code = Abnormal 28943-1) [facility] [id number] 22:57:22 Mild residual atelectasis. No definite pneumothorax. [...] venous catheter sheath terminates in the mid SVC.[facility] GLUCOSE (AUTOMATED)2019-09-03 17:30:00 Test Item Value Reference Range Interpretation Comments POCT GLU (test code = 4244506046) 108 mg/dL 70-110 Lab Interpretation (test code = Normal 00341-1) [facility] 1 [id number] 15:06:00EXAM: XR CHEST 1 VW HISTORY: s/p cabg COMPARISON: None. FINDINGS: Chest tubes drain the pleural space on each side, and a mediastinal drainis in the expected position. The Bacova-Juhi catheter was removed. The tip ofthe right [...] a mediastinal drainis in theexpected position. The Bacova-Juhi catheter was removed. The tip ofthe right IJ line is in the superior vena cava The heart is upper limit ofnormal in size or slightly enlarged to the left, probably thelatter. Thelungs are moderately well expanded and clear except for very minor hilarvascular congestion. No pleural effusion or pneumothorax is detected.[facility] GLUCOSE (AUTOMATED)2019-09-03 14:42:00 Test Item Value Reference Range Interpretation Comments POCT GLU (test code = 136 mg/dL 70-110 H Notifi ed Provider [id number]) Lab Interpretation (test Abnormal code = 71545-5) [facility] [id number] 10:31:00 Test Item Value Reference Range Interpretation [...] (test code = 53.7 fL 38.5-51.6 H 26663-1) RDW-CV (test code = 21.4 % 12.1-15.4 H 788-0) PLT (test code = See_Comment [Automated 777-3) message] The system which generated this result transmit tennille reference range : 150 - 328 10*3/ ?L. The reference range was not u sed to interpret th is result as normal/abnormal . MPV (test code = 11.5 fL 9.8-13 76595-3) NRBC/100 WBC (test See_Comment [Automat ed code = 6813312002) message] The system which generated this result transmit tennille reference range : 0.0 - 10.0 /100 WBCs. The reference range was not used to interpret this result as normal/abnormal . NRBC x10^3 (test code <0.01 See_Comment [Auto mated = 8359777574) message] The system which generated this result transmit tennille reference range : 10*3/?L. The reference range was not used to interpret this result as normal/abnormal . GRAN MAT (NEUT) % 84.6 % (test code = 770-8) IMM GRAN % (test code 0.60 % = 1442138485) LYMPH % (test code = 4.2 % 736-9) MONO % (test code = 10.5 % 5905-5) EOS % (test code = 0.0 % 713-8) BASO % (test code = 0.1 % 706-2) GRAN MAT x10^3(ANC) 14.72 10*3/uL 1.99-6.95 H (test code = 4776529724) IMM GRAN x10^3 (test 0.11 10*3/uL 0-0.06 H code = 4833404950) LYMPH x10^3 (test code 0.74 10*3/uL 1.09-3.23 L = 731-0) MONO x10^3 (test code 1.83 10*3/uL 0.36-1.02 H = 742-7) EOS x10^3 (test code = <0.03 0.06-0.53 L 711-2) BASO x10^3 (test code <0.03 0.01-0.09 = 704-7) BASO STIPPLING (test Present A code = 703-9) SCHISTOCYTES (test 1+ A code = 800-3) Lab Interpretation Abnormal (test code = 54467-7) [facility] METABOLIC PANEL (NA, K, CL, CO2, GLUCOSE, BUN, CREATININE, CA)2019-09-03 10:19:00 Test Item Value Reference Range Interpretation Comments NA (test code = 137 mmol/L 135-145 5236265976) K (test code = 4.0 mmol/L 3.5-5 9834686445) CL (test code = 104 mmol/L 98-108 3461006051) CO2 TOTAL (test code = 24 mmol/L 23-31 4129754417) AGAP (test code = 2-16 0361257475) BUN (test code = 51 mg/dL 7-23 H 8708450139) GLUCOSE (test code = 204 mg/dL 70-110 H 9394409514) CREATININE (test code = 1.72 mg/dL 0.6-1.25 H 4563067844) CALCIUM (test code = 8.6 mg/dL 8.6-10.6 5529994348) eGFR Calculation mL/min/1.73m2 (Non-) (test code = 1757714308) eGFR Calculation mL/min/1.73m2 () (test code = 4150717863) JUAN LUIS (test code = JUAN LUIS) [...] tests). Lab Interpretation Abnormal (test code = 54719-3) [facility] 10:19:00 Test Item Value Reference Range Interpretation Comments MAGNESIUM (test code = 1713711518) 2.5 mg/dL 1.7-2.4 H Lab Interpretation (test code = Abnormal 00504-9) [facility] GLUCOSE (AUTOMATED)2019-09-03 09:37:00 Test Item Value Reference Range Interpretation Comments POCT GLU (test code = 283 mg/dL 70-110 H Notifi ed Provider 1593054415) Lab Interpretation (test Abnormal code = 93220-0) [facility] GLUCOSE (AUTOMATED)2019-09-03 09:12:00 Test Item Value Reference Range Interpretation Comments POCT GLU (test code = 9839896294) 240 mg/dL 70-110 H Lab Interpretation (test code = Abnormal 70165-9) [facility] GLUCOSE (AUTOMATED)2019-09-03 06:11:00 Test Item Value Reference Range Interpretation Comments POCT GLU (test code = 1869726708) 309 mg/dL 70-110 H Lab Interpretation (test code = Abnormal 38840-0) [facility] GLUCOSE (AUTOMATED)2019-09-02 22:21:00 Test Item Value Reference Range Interpretation Comments POCT GLU (test code = 4169725020) 281 mg/dL 70-110 H Lab Interpretation (test code = Abnormal 62172-6) [facility] GLUCOSE (AUTOMATED)2019-09-02 18:57:00 Test Item Value Reference Range Interpretation Comments POCT GLU (test code = 5960371563) 244 mg/dL 70-110 H Lab Interpretation (test code = Abnormal 57234-0) [facility] MSSA Screen by Britney [id number] 17:19:00 Test Item Value Reference Range Interpretation Comments MSSA Screen by Britney MTZ (test code Negative Negative = 39258-9) MRSA/MSSA Positive? (test code = No No 3310666449) Lab Interpretation (test code = Normal 56052-1) [facility] 1 [id number] 15:38:43EXAM: XR CHEST 1 VW HISTORY: s/p open heart surgery COMPARISON: None. FINDINGS: The heart is slightly enlarged, not different than noted previously. Thetip of the Bacova-Juhi catheter is in the main pulmonary artery. [...] different than noted previously. Thetip of the Bacova-Juhi catheter is in the main pulmonary artery. A chest tubedrains the pleural space on the right and a mediastinal drain is in place.The endotracheal tube was removed. The chest tube on the left was removed.The lungs are moderately well expanded and clear.[facility] GLUCOSE (AUTOMATED)2019-09-02 13:46:00 Test Item Value Reference Range Interpretation Comments POCT GLU (test code = 4196552899) 157 mg/dL 70-110 H Lab Interpretation (test code = Abnormal 58606-3) [facility] GLUCOSE (AUTOMATED)2019-09-02 10:17:00 Test Item Value Reference Range Interpretation Comments POCT GLU (test code = 4835146798) 149 mg/dL 70-110 H Lab Interpretation (test code = Abnormal 94783-1) [facility] GLUCOSE (AUTOMATED)2019-09-02 10:17:00 Test Item Value Reference Range Interpretation Comments POCT GLU (test code = 3017555210) 109 mg/dL 70-110 Lab Interpretation (test code = Normal 47202-2) [facility]-19 07:38:00 Test Item Value Reference Range Interpretation Comments MAGNESIUM (test code = 7795979993) 2.6 mg/dL 1.7-2.4 H Lab Interpretation (test code = Abnormal 50839-6) [facility] (NA, K, CL, CO2, GLUCOSE, BUN, CREATININE, CA)2019-09-02 07:38:00 Test Item Value Reference Range Interpretation Comments NA (test code = 137 mmol/L 135-145 4644646056) K (test code = 4.6 mmol/L 3.5-5 7980779758) CL (test code = 108 mmol/L 98-108 9078759047) CO2 TOTAL (test code = 23 mmol/L 23-31 0289895611) AGAP (test code = 2-16 6886639279) BUN (test code = 40 mg/dL 7-23 H 4672869041) GLUCOSE (test code = 120 mg/dL 70-110 H 9465887978) CREATININE (test code = 1.72 mg/dL 0.6-1.25 H 2573924456) CALCIUM (test code = 8.1 mg/dL 8.6-10.6 L 0396251420) eGFR Calculation mL/min/1.73m2 (Non-) (test code = 1219450387) eGFR Calculation mL/min/1.73m2 () (test code = 8725253708) JUAN LUIS (test code = JUAN LUIS) [...] tests). Lab Interpretation Abnormal (test code = 95187-7) [facility] 07:38:00 Test Item Value Reference Range Interpretation Comments PHOSPHORUS (test code = 1998824138) 4.5 mg/dL 2.5-5 Lab Interpretation (test code = Normal 39412-1) [facility]Allen[facility]AT[facility] (15744) (ALB,T.PRO,BILI T,BU/BC,ALT,AST,ALK PHOS)2019-09-02 07:38:00 Test Item Value Reference Range Interpretation Comments TOTAL BILI (test code = 6559909148) 0.2 mg/dL 0.1-1.1 BILI UNCON (test code = 0146389728) 0.2 mg/dL 0.1-1.1 BILI CONJ (test code = 7066413080) 0.0 mg/dL 0-0.3 T PROTEIN (test code = 3237374214) 4.7 g/dL 6.3-8.2 L ALBUMIN (test code = 9424065459) 2.4 g/dL 3.5-5 L ALK PHOS (test code = 5904989485) 34 U/L 34-122 ALTv (test code = 1742-6) 15 U/L 5-50 AST(SGOT) (test code = 9182576002) 43 U/L 13-40 H Lab Interpretation (test code = Abnormal 86773-5) [facility]+COOX+NA+K+GLU+CA2+2019-09-02 07:30:00 Test Item Value Reference Range Interpretation Comments PH (test code = 2) 7.35-7.45 PCO2 (test code = See_Comment [Automat ed message] 5089894658) The system [employer] generated this result transmit tennille reference range : 35 - 45 mmHg. The reference range was not used to interpret this result as normal/abnormal . PO2 (test code = See_Comment H [Automated message] 2481392944) The system [employer] generated this result transmit tennille reference range : 80 - 100 mmHg. The reference range was not used to interpret this result as normal/abnormal . HCO3 (test code = See_Comment L [Automate d message] 7141656314) The system [employer] generated this result transmit tennille reference range : 22 - 26 mEq/L. The reference range was not used to interpret this result as normal/abnormal . BE (test code = See_Comment L [Automated message] 7337132479) The system [employer] generated this result transmit tennille reference range : -3.0 - 3.0 mEq/ L. The reference r christine was not used to interpret this result as normal/abnormal . THB (test code = 9.6 g/dL 13.5-18 L 7970423376) %O2HB (test code = 97.8 % 94-99 7820694250) %COHB ART (test code = 0.3 % 0-1.5 1953180794) %METHB ART (test code = 0.3 % 0.4-1.5 L 5469189695) VOL%O2 ART (test code = 13.5 % 15-23 L 5158747373) NA (test code = 135 mmol/L 135-145 6385458965) K+ (test code = 4.4 mmol/L 3.5-5 0772879360) AC CA IONZ (test code = 5.00 mg/dL 4.5-5.3 5833747048) GLUCOSE (test code = 117 mg/dL 70-110 H 1857403183) Lab Interpretation Abnormal (test code = 78307-9) [facility]AllenPROFILE / [id number] 07:28:00 Test Item Value Reference Range Interpretation Comments WBC (test code = 6690-2) See_Comment H [A utomated message] The system [employer] generated this result transmit tennille reference range : 4.20 - 10.70 10*3/?L. The reference range was not used to interpret this result as normal/abnormal . RBC (test code = 789-8) See_Comment L [Au tomated message] The system [employer] generated this result transmit tennille reference range [...] 777-3) See_Comment [Au tomated message] The system [employer] generated this result transmit tennille reference range : 150 - 328 10*3/?L. The reference range was not used to interpret this result as normal/abnormal . MPV (test code = 11.1 fL 9.8-13 97523-3) RDW-CV (test code = 19.5 % 12.1-15.4 H 788-0) RDW-SD (test code = 50.0 fL 38.5-51.6 43203-3) NRBC x10^3 (test code = <0.01 See_Comment [Au tomated message] 9257515434) The system [facility] h generated this result transmit tennille reference range : 10*3/?L. The reference range was not used to interpret this result as normal/abnormal . NRBC/100 WBC (test code See_Comment [Au tomated message] = 7082796716) The system [facility] generated this result transmit tennille reference range : 0.0 - 10.0 /100 WBC s. The reference r christine was not used to interpret this result as normal/abnormal . IPF % (test code = 7720847452) Lab Interpretation (test Abnormal code = 45840-3) [facility]2019-[facility]-02 06:07:00 Test Item Value Reference Range Interpretation Comments POCT GLU (test code = 7914470347) 183 mg/dL 70-110 H Lab Interpretation (test code = Abnormal 64984-0) [facility] + LACTIC [id number] 03:06:00 Test Item Value Reference Range Interpretation Comments PH (test code = 2) 7.35-7.45 PCO2 (test code = See_Comment L [Automat ed 0303184657) message] The sy stem which generated this result transmitted reference range : 35 - 45 mmHg. The reference range was not used to interpret this result as normal/abnormal . PO2 (test code = See_Comment H [Automated 8919300603) message] The sy stem which generated this result transmitted reference range : 80 - 100 mmHg. The reference range was not used to interpret this result as normal/abnormal . HCO3 (test code = See_Comment L [Automate d 2252114856) message] The sy stem which generated this result transmitted reference range : 22 - 26 mEq/L. The reference range was not used to interpret this result as normal/abnormal . BE (test code = See_Comment L [Automated 4128033655) message] The sy stem which generated this result transmitted reference range : -3.0 - 3.0 mEq/ L. The reference r christine was not used to interpret this result as normal/abnormal . THB (test code = 10.2 g/dL 13.5-18 L 7654708394) %O2HB (test code = 98.1 % 94-99 8000997080) %COHB ART (test code = 0.3 % 0-1.5 5140063443) %METHB ART (test code = 0.3 % 0.4-1.5 L 5953910973) VOL%O2 ART (test code = 14.4 % 15-23 L 7833667649) NA (test code = 134 mmol/L 135-145 L 9346908978) K+ (test code = 4.9 mmol/L 3.5-5 1312066822) AC CA IONZ (test code = 4.90 mg/dL 4.5-5.3 5474183264) GLUCOSE (test code = 176 mg/dL 70-110 H 8287937571) LACTIC ACID (test code 1.62 mmol/L 0.5-2.2 = 2282069773) Lab Interpretation Abnormal (test code = 77065-8) [facility] GLUCOSE (AUTOMATED)2019-09-02 01:41:00 Test Item Value Reference Range Interpretation Comments POCT GLU (test code = 4565073974) 176 mg/dL 70-110 H Lab Interpretation (test code = Abnormal 39987-3) [facility] GLUCOSE (AUTOMATED)2019-09-01 23:56:00 Test Item Value Reference Range Interpretation Comments POCT GLU (test code = 4801841581) 172 mg/dL 70-110 H Lab Interpretation (test code = Abnormal 38143-0) [facility] METABOLIC PANEL (NA, K, CL, CO2, GLUCOSE, BUN, CREATININE, CA)2019-09-01 23:52:00 Test Item Value Reference Range Interpretation Comments NA (test code = 136 mmol/L 135-145 2227833345) K (test code = 5.1 mmol/L 3.5-5 H 1306659954) CL (test code = 106 mmol/L 98-108 9257478089) CO2 TOTAL (test code = 23 mmol/L 23-31 1297365129) AGAP (test code = 2-16 5733218626) BUN (test code = 34 mg/dL 7-23 H 1919185971) GLUCOSE (test code = 147 mg/dL 70-110 H 1904682680) CREATININE (test code = 1.75 mg/dL 0.6-1.25 H 9723683083) CALCIUM (test code = 8.4 mg/dL 8.6-10.6 L 0377537939) eGFR Calculation mL/min/1.73m2 (Non-) (test code = 6719897968) eGFR Calculation mL/min/1.73m2 () (test code = 4111228895) JUAN LUIS (test code = JUAN LUIS) [...] tests). Lab Interpretation Abnormal (test code = 11973-3) [facility] Test Item Value Reference Range Interpretation Comments MAGNESIUM (test code = 4706968355) 2.3 mg/dL 1.7-2.4 Lab Interpretation (test code = Normal 12126-4) [facility] 23:49:00 Test Item Value Reference Range Interpretation Comments PHOSPHORUS (test code = 8791687884) 4.0 mg/dL 2.5-5 Lab Interpretation (test code = Normal 32427-5) [facility]2019-09-01 23:48:00 Test Item Value Reference Range Interpretation Comments POCT GLU (test code = 0967262685) 131 mg/dL 70-110 H Lab Interpretation (test code = Abnormal 77961-0) [facility] 23:48:00 Test Item Value Reference Range Interpretation Comments APTT Patient (test code = See_Comment [ Automated message] 3173-2) The system [employer] generated this result transmitted ref erence range: 26 - 36 Seconds. The re ference range was not u sed to interpret this result as normal/abnor mal. Lab Interpretation (test Normal code = 26940-4) [facility]+K+GLU+CA2+2019-09-01 23:34:00 Test Item Value Reference Range Interpretation Comments PH (test code = 2) 7.35-7.45 PCO2 (test code = See_Comment [Automat ed message] 4956664503) The system [employer] generated this result transmit tennille reference range : 35 - 45 mmHg. The reference range was not used to interpret this result as normal/abnormal . PO2 (test code = See_Comment H [Automated message] 5324451567) The system [employer] generated this result transmit tennille reference range : 80 - 100 mmHg. The reference range was not used to interpret this result as normal/abnormal . HCO3 (test code = See_Comment L [Automate d message] 9030638746) The system [employer] generated this result transmit tennille reference range : 22 - 26 mEq/L. The reference range was not used to interpret this result as normal/abnormal . BE (test code = See_Comment L [Automated message] 1840596607) The system [employer] generated this result transmit tennille reference range : -3.0 - 3.0 mEq/ L. The reference r christine was not used to interpret this result as normal/abnormal . THB (test code = 10.0 g/dL 13.5-18 L 5186008662) %O2HB (test code = 98.0 % 94-99 4346294631) %COHB ART (test code = 0.3 % 0-1.5 9497641802) %METHB ART (test code = 0.2 % 0.4-1.5 L 5322799433) VOL%O2 ART (test code = 14.1 % 15-23 L 8197586611) NA (test code = 134 mmol/L 135-145 L 8746893617) K+ (test code = 5.0 mmol/L 3.5-5 8099906962) AC CA IONZ (test code = 4.90 mg/dL 4.5-5.3 6652355892) GLUCOSE (test code = 151 mg/dL 70-110 H 4105225442) Lab Interpretation Abnormal (test code = 82508-3) [facility] WITH [id number] 21:06:00 Test Item Value Reference Range Interpretation [...] (test code = 51.8 fL 38.5-51.6 H 64993-2) RDW-CV (test code = 20.2 % 12.1-15.4 H 788-0) PLT (test code = See_Comment [Automated 777-3) message] The system which generated this result transmit tennille reference range : 150 - 328 10*3/ ?L. The reference range was not u sed to interpret th is result as normal/abnormal . MPV (test code = 11.7 fL 9.8-13 03961-3) NRBC/100 WBC (test See_Comment [Automat ed code = 9072226800) message] The system which generated this result transmit tennille reference range : 0.0 - 10.0 /100 WBCs. The reference range was not used to interpret this result as normal/abnormal . NRBC x10^3 (test code <0.01 See_Comment [Auto mated = 5659980996) message] The system which generated this result transmit tennille reference range : 10*3/?L. The reference range was not used to interpret this result as normal/abnormal . GRAN MAT (NEUT) % 87.5 % (test code = 770-8) IMM GRAN % (test code 0.80 % = 1157193099) LYMPH % (test code = 4.4 % 736-9) MONO % (test code = 6.6 % 5905-5) EOS % (test code = 0.4 % 713-8) BASO % (test code = 0.3 % 706-2) GRAN MAT x10^3(ANC) 12.12 10*3/uL 1.99-6.95 H (test code = 9883424149) IMM GRAN x10^3 (test 0.11 10*3/uL 0-0.06 H code = 9174229613) LYMPH x10^3 (test code 0.61 10*3/uL 1.09-3.23 L = 731-0) MONO x10^3 (test code 0.92 10*3/uL 0.36-1.02 = 742-7) EOS x10^3 (test code = 0.05 10*3/uL 0.06-0.53 L 711-2) BASO x10^3 (test code 0.04 10*3/uL 0.01-0.09 = 704-7) Lab Interpretation Abnormal (test code = 54331-5) [facility] + LACTIC [id number] 21:06:00 Test Item Value Reference Range Interpretation Comments PH (test code = 2) 7.35-7.45 PCO2 (test code = See_Comment [Automat ed 6453785663) message] The sy stem which generated this result transmitted reference range : 35 - 45 mmHg. The reference range was not used to interpret this result as normal/abnormal . PO2 (test code = See_Comment H [Automated 0860821031) message] The sy stem which generated this result transmitted reference range : 80 - 100 mmHg. The reference range was not used to interpret this result as normal/abnormal . HCO3 (test code = See_Comment [Automate d 0215699285) message] The sy stem which generated this result transmitted reference range : 22 - 26 mEq/L. The reference range was not used to interpret this result as normal/abnormal . BE (test code = See_Comment [Automated 3855173756) message] The sy stem which generated this result transmitted reference range : -3.0 - 3.0 mEq/ L. The reference r christine was not used to interpret this result as normal/abnormal . THB (test code = 9.9 g/dL 13.5-18 L 9501335758) %O2HB (test code = 98.0 % 94-99 2329158746) %COHB ART (test code = 0.3 % 0-1.5 0751360677) %METHB ART (test code = 0.1 % 0.4-1.5 L 1844729558) VOL%O2 ART (test code = 14.0 % 15-23 L 3335472825) NA (test code = 135 mmol/L 135-145 5951427473) K+ (test code = 4.5 mmol/L 3.5-5 4536979135) AC CA IONZ (test code = 4.60 mg/dL 4.5-5.3 0768989639) GLUCOSE (test code = 124 mg/dL 70-110 H 5393646787) LACTIC ACID (test code 0.89 mmol/L 0.5-2.2 = 2537995210) Lab Interpretation Abnormal (test code = 02085-2) [facility] Metabolic Panel (NA, K, CL, CO2, GLUCOSE, BUN, CREATININE, CA)2019-09-01 21:02:00 Test Item Value Reference Range Interpretation Comments NA (test code = 137 mmol/L 135-145 4266874049) K (test code = 4.3 mmol/L 3.5-5 9153293064) CL (test code = 107 mmol/L 98-108 9585055860) CO2 TOTAL (test code = 24 mmol/L 23-31 2572150105) AGAP (test code = 2-16 3138599001) BUN (test code = 31 mg/dL 7-23 H 8362312290) GLUCOSE (test code = 106 mg/dL 70-110 3262067952) CREATININE (test code = 1.68 mg/dL 0.6-1.25 H 2272636272) CALCIUM (test code = 7.0 mg/dL 8.6-10.6 L 0628061160) eGFR Calculation mL/min/1.73m2 (Non-) (test code = 3908399322) eGFR Calculation mL/min/1.73m2 () (test code = 7952388823) JUAN LUIS (test code = JUAN LUIS) [...] tests). Lab Interpretation Abnormal (test code = 94110-8) [facility] 21:02:00 Test Item Value Reference Range Interpretation Comments MAGNESIUM (test code = 3058892461) 1.9 mg/dL 1.7-2.4 Lab Interpretation (test code = Normal 09285-4) [facility]2020-[facility]-18 21:02:00 Test Item Value Reference Range Interpretation Comments PHOSPHORUS (test code = 9587833289) 3.1 mg/dL 2.5-5 Lab Interpretation (test code = Normal 83780-6) [facility] / [id number] 20:59:00 Test Item Value Reference Range Interpretation Comments PROTIME PATIENT (test See_Comment H [Auto mated message] code = 5964-2) The system [employer] generated this result transmitted ref erence range: 10.1 - 1 2.6 Seconds. The reference range was not used to int erpret this result as normal/abnormal . INR (test code = 6301-6) Nor mal INR <1.1; Warfarin Therap eutic range 2.0 to 3. 0 or 2.5 to 3.5, dep ending upon the indica tions. Lab Interpretation (test Abnormal code = 62479-8) [facility] 20:59:00 Test Item Value Reference Range Interpretation Comments APTT Patient (test code See_Comment H [Au tomated message] = 3173-2) The system [employer] generated this result transmitted ref erence range: 26 - 36 Seconds. The reference range was not used to int erpret this result as normal/abnormal . Lab Interpretation (test Abnormal code = 70839-0) [facility] Packed RBC (in units), 2 Units 2019-09-01 20:58:25 Test Item Value Reference Range Interpretation Comments Cross Match Result Compatible (test code = 4409) ISBT Blood Type Code (test code = 551049) Unit Blood Type (test A Pos code = 4410) Unit Number (test [id number] code = 4411) Blood Expiration Date & Time (test code = 081014) Status Information Issued (test code = 4412) Product Red Blood Cells Identification (test code = 4413) Product Code (test [id number] Performed at [facility] code = 4414) Laboratory Services - [facility] Blood [address] [place] [id number] Free: [phone] A No. [id number] [facility] 1 View (on admission)2019-09-01 19:53:23 Lines and tubes in expected position Lungs are expanded and clear with mild perihilar congestion. XR CHEST 1 VW HISTORY: s/p open heart surgery COMPARISON: 08/22/2019 FINDINGS: Lines and tubes: The endotracheal tube terminates 4.6 cm from amol.NG tube extends to stomach.Right IJ Bacova-Juhi terminates at proximal right PA.Mediastinal and chest tubes in place. Lungs and pleura: Unremarkable with mildperihilar congestion. No pleuraleffusion or pneumothorax. Mediastinum and heart: Unremarkable Bones;?unremarkable status post medial sternotomy. [facility], Radiant Results Inft User - 09/01/2019 1:54 PM CSTXR CHEST 1 VWHISTORY: s/p open heart surgery COMPARISON: 08/22/2019FINDINGS:Lines and tubes: The endotracheal tube terminates 4.6 cm from amol.NG tube extends to stomach.Right IJ Bacova-Juhi terminates at proximal right PA.Mediastinal and chest tubes in place.Lungs and pleura: Unremarkable with mild perihilar congestion. No pleuraleffusion or pneumothorax.Mediastinum and heart: UnremarkableBones; unre markable status post medial sternotomy.IMPRESSIONLines and tubes in expected positionLungs are expanded and clear with mild perihilar congestion.[facility]+NA+K+GLU+CA2+2019-09-01 19:30:00 Test Item Value Reference Range Interpretation Comments PH (test code = 2) 7.35-7.45 PCO2 (test code = See_Comment [Automat ed message] 5423430339) The system [employer] generated this result transmit tennille reference range : 35 - 45 mmHg. The reference range was not used to interpret this result as normal/abnormal . PO2 (test code = See_Comment H [Automated message] 1729130165) The system [employer] generated this result transmit tennille reference range : 80 - 100 mmHg. The reference range was not used to interpret this result as normal/abnormal . HCO3 (test code = See_Comment [Automate d message] 3585137707) The system [employer] generated this result transmit tennille reference range : 22 - 26 mEq/L. The reference range was not used to interpret this result as normal/abnormal . BE (test code = See_Comment [Automated message] 7722437682) The system [employer] generated this result transmit tennille reference range : -3.0 - 3.0 mEq/ L. The reference r christine was not used to interpret this result as normal/abnormal . THB (test code = 9.9 g/dL 13.5-18 L 3162965769) %O2HB (test code = 98.8 % 94-99 0735138648) %COHB ART (test code = 0.0 % 0-1.5 3099951523) %METHB ART (test code = 0.3 % 0.4-1.5 L 4498737966) VOL%O2 ART (test code = 14.4 % 15-23 L 0433934443) NA (test code = 135 mmol/L 135-145 6066825980) K+ (test code = 4.3 mmol/L 3.5-5 3089260376) AC CA IONZ (test code = 4.40 mg/dL 4.5-5.3 L 2868542012) GLUCOSE (test code = 106 mg/dL 70-110 6786045704) Lab Interpretation Abnormal (test code = 00632-8) [facility] ACUTE CARE [id number] 18:13:00 Test Item Value Reference Range Interpretation Comments PH (test code = 2) 7.35-7.45 PCO2 (test code = See_Comment H [Automat ed message] 2407811035) The system [employer] generated this result transmit tennille reference range : 35 - 45 mmHg. The reference range was not used to interpret this result as normal/abnormal . PO2 (test code = See_Comment H [Automated message] 2101526268) The system [employer] generated this result transmit tennille reference range : 80 - 100 mmHg. The reference range was not used to interpret this result as normal/abnormal . BE (test code = See_Comment [Automated message] 0410259006) The system [employer] generated this result transmit tennille reference range : -3.0 - 3.0 mEq/ L. The reference r christine was not used to interpret this result as normal/abnormal . HCO3 (test code = See_Comment H [Automate d message] 6138956333) The system [employer] generated this result transmit tennille reference range : 22 - 26 mEq/L. The reference range was not used to interpret this result as normal/abnormal . %O2HB (test code = 100.0 % 95-98 H 6576482246) NA (test code = 137 mmol/L 135-145 2870820642) K+ (test code = 4.3 mmol/L 3.5-5 4670818054) AC CA IONZ (test code = 4.40 mg/dL 4.5-5.3 L 8544736855) GLUCOSE (test code = 80 mg/dL 70-110 2002536752) AC Hematocrit (test See_Comment LL [Automa tennille message] code = 8299026265) The syste m which generated this result transmit tennille reference range : 40 - 54 VOL %. The reference range was not used to interpret this result as normal/abnormal . THB (test code = 8.2 g/dL 13.5-18 LL 9202340134) AC TC02 (test code = 28 mmol/L See_Comment H [Autom ated message] 4541979978) The system [employer] generated this result transmit tennille reference range : 23-27 mmol/L. T he reference range was not used to interpret this result as normal/abnormal . Lab Interpretation Abnormal (test code = 15473-1) [facility] HIGH [id number] 17:58:00 Test Item Value Reference Range Interpretation Comments ACTHR (test code = See_Comment [Automat ed message] 7660332880) The system [employer] generated this result transmitted ref erence range: 96 - 152 Seconds. The re ference range was not u sed to interpret this result as normal/abnor mal. Lab Interpretation (test Normal code = 25463-4) [facility] 17:39:00 Test Item Value Reference Range Interpretation Comments APTT Patient (test code >150 See_Comment HH [Au tomated message] = 3173-2) The system [employer] generated this result transmitted ref erence range: 26 - 36 Seconds. The reference range was not used to int erpret this result as normal/abnormal . Lab Interpretation (test Abnormal code = 84691-4) [facility]AllenFIBRINOGEN2020-02-18 17:32:00 Test Item Value Reference Range Interpretation Comments Fibrinogen (test code = 5588538717) 350 mg/dL 167-453 Lab Interpretation (test code = Normal 34958-3) [facility]AllenPROTHROMBIN [facility] / [id number] 17:32:00 Test Item Value Reference Range Interpretation Comments PROTIME PATIENT (test See_Comment H [Auto mated message] code = 5964-2) The system [facility] generated this result transmitted ref erence range: 10.1 - 1 2.6 Seconds. The reference range was not used to int erpret this result as normal/abnormal . INR (test code = 6301-6) Nor mal INR <1.1; Warfarin Therap eutic range 2.0 to 3. 0 or 2.5 to 3.5, dep ending upon the indica tions. Lab Interpretation (test Abnormal code = 79064-6) [facility] [id number] 17:17:00 Test Item Value Reference Range Interpretation Comments PH (test code = 2) 7.35-7.45 L PCO2 (test code = See_Comment H [Automat ed message] 8988174206) The system [employer] generated this result transmit tennille reference range : 35 - 45 mmHg. The reference range was not used to interpret this result as normal/abnormal . PO2 (test code = See_Comment H [Automated message] 1808562673) The system [employer] generated this result transmit tennille reference range : 80 - 100 mmHg. The reference range was not used to interpret this result as normal/abnormal . BE (test code = See_Comment [Automated message] 6188147172) The system [employer] [facility] [employer] generated this result transmit tennille reference range : -3.0 - 3.0 mEq/ L. The reference r christine was not used to interpret this result as normal/abnormal . HCO3 (test code = See_Comment H [Automate d message] 5444842488) The system [employer] generated this result transmit tennille reference range : 22 - 26 mEq/L. The reference range was not used to interpret this result as normal/abnormal . %O2HB (test code = 100.0 % 95-98 H 4026769215) NA (test code = 140 mmol/L 135-145 4522408313) K+ (test code = 4.2 mmol/L 3.5-5 3541237940) AC CA IONZ (test code = 4.20 mg/dL 4.5-5.3 L 5584438266) GLUCOSE (test code = 92 mg/dL 70-110 2808413226) AC Hematocrit (test See_Comment LL [Automa tennille message] code = 4471574744) The syste m which generated this result transmit tennille reference range : 40 - 54 VOL %. The reference range was not used to interpret this result as normal/abnormal . THB (test code = 7.5 g/dL 13.5-18 LL 9324642100) AC TC02 (test code = 29 mmol/L See_Comment H [Autom ated message] 9743477169) The system [employer] generated this result transmit tennille reference range : 23-27 mmol/L. T he reference range was not used to interpret this result as normal/abnormal . Lab Interpretation Abnormal (test code = 35861-6) [facility]MAT[facility]CRIT2020-02-18 17:16:00 Test Item Value Reference Range Interpretation Comments HCT (test code = 4544-3) 25.6 % 38.4-49.3 L Lab Interpretation (test code = Abnormal 37420-2) [facility]MOGLOBIN2020-02-18 17:16:00 Test Item Value Reference Range Interpretation Comments HGB (test code = 718-7) 8.0 g/dL 12.2-16.4 L Lab Interpretation (test code = Abnormal 37093-0) [facility]AllenPLATELET [id number] 17:16:00 Test Item Value Reference Range Interpretation Comments PLT (test code = 777-3) See_Comment [Au tomated message] The system [employer] generated this result transmitted ref erence range: 150 - 32 8 10*3/?L. The re ference range was not u sed to interpret this result as normal/abnor mal. Lab Interpretation (test Normal code = 88219-7) [facility] HIGH [id number] 17:04:00 Test Item Value Reference Range Interpretation Comments ACTHR (test code = See_Comment H [Automat ed message] 7098750264) The system [employer] generated this result transmitted ref erence range: 96 - 152 Seconds. The reference range was not used to int erpret this result as normal/abnormal . Lab Interpretation (test Abnormal code = 34923-4) [facility] ACUTE CARE [id number] 16:52:00 Test Item Value Reference Range Interpretation Comments PH (test code = 2) 7.35-7.45 PCO2 (test code = See_Comment [Automat ed message] 6342634075) The system [employer] generated this result transmit tennille reference range : 35 - 45 mmHg. The reference range was not used to interpret this result as normal/abnormal . PO2 (test code = See_Comment H [Automated message] 5556215422) The system [employer] generated this result transmit tennille reference range : 80 - 100 mmHg. The reference range was not used to interpret this result as normal/abnormal . BE (test code = See_Comment [Automated message] 0217044842) The system [employer] [facility] [employer] generated this result transmit tennille reference range : -3.0 - 3.0 mEq/ L. The reference r christine was not used to interpret this result as normal/abnormal . HCO3 (test code = See_Comment H [Automate d message] 3405559366) The system [employer] generated this result transmit tennille reference range : 22 - 26 mEq/L. The reference range was not used to interpret this result as normal/abnormal . %O2HB (test code = 100.0 % 95-98 H 9785017567) NA (test code = 138 mmol/L 135-145 1386573114) K+ (test code = 4.7 mmol/L 3.5-5 5456600827) AC CA IONZ (test code = 4.10 mg/dL 4.5-5.3 L 2850610498) GLUCOSE (test code = 143 mg/dL 70-110 H 3109494049) AC Hematocrit (test See_Comment LL [Automa tennille message] code = 2635747851) The syste m which generated this result transmit tennille reference range : 40 - 54 VOL %. The reference range was not used to interpret this result as normal/abnormal . THB (test code = 8.2 g/dL 13.5-18 LL 9765535274) AC TC02 (test code = 29 mmol/L See_Comment H [Autom ated message] 0201897181) The system [employer] generated this result transmit tennille reference range : 23-27 mmol/L. T he reference range was not used to interpret this result as normal/abnormal . Lab Interpretation Abnormal (test code = 02123-0) [facility] ACT HIGH [id number] 16:41:00 Test Item Value Reference Range Interpretation Comments ACTHR (test code = See_Comment H [Automat ed message] 1436055430) The system [employer] generated this result transmitted ref erence range: 96 - 152 Seconds. The reference range was not used to int erpret this result as normal/abnormal . Lab Interpretation (test Abnormal code = 76101-1) [facility] ACUTE CARE [id number] 16:20:00 Test Item Value Reference Range Interpretation Comments PH (test code = 2) 7.35-7.45 PCO2 (test code = See_Comment [Automat ed message] 8103687894) The system [employer] generated this result transmit tennille reference range : 35 - 45 mmHg. The reference range was not used to interpret this result as normal/abnormal . PO2 (test code = See_Comment H [Automated message] 4565222771) The system [employer] generated this result transmit tennille reference range : 80 - 100 mmHg. The reference range was not used to interpret this result as normal/abnormal . BE (test code = See_Comment [Automated message] 0779654376) The system [employer] [facility] [employer] generated this result transmit tennille reference range : -3.0 - 3.0 mEq/ L. The reference r christine was not used to interpret this result as normal/abnormal . HCO3 (test code = See_Comment H [Automate d message] 6860901554) The system [employer] [facility] [employer] generated this result transmit tennille reference range : 22 - 26 mEq/L. The reference range was not used to interpret this result as normal/abnormal . %O2HB (test code = 100.0 % 95-98 H 9520005425) NA (test code = 135 mmol/L 135-145 8331475330) K+ (test code = 4.9 mmol/L 3.5-5 1050147319) AC CA IONZ (test code = 3.80 mg/dL 4.5-5.3 L 0697943424) GLUCOSE (test code = 200 mg/dL 70-110 H 7917661485) AC Hematocrit (test See_Comment L [Automa tennille message] code = 7279705880) The syste m which generated this result transmit tennille reference range : 40 - 54 VOL %. The reference range was not used to interpret this result as normal/abnormal . THB (test code = 8.8 g/dL 13.5-18 L [id number]) AC TC02 (test code = 29 mmol/L See_Comment H [Autom ated message] 5815610227) The system [employer] generated this result transmit tennille reference range : 23-27 mmol/L. T he reference range was not used to interpret this result as normal/abnormal . Lab Interpretation Abnormal (test code = 47476-4) [facility] ACT HIGH [id number] 16:14:00 Test Item Value Reference Range Interpretation Comments ACTHR (test code = See_Comment H [Automat ed message] 8439339143) The system [employer] generated this result transmitted ref erence range: 96 - 152 Seconds. The reference range was not used to int erpret this result as normal/abnormal . Lab Interpretation (test Abnormal code = 94327-6) [facility] ACUTE CARE [id number] 15:55:00 Test Item Value Reference Range Interpretation Comments PH (test code = 2) 7.35-7.45 L PCO2 (test code = See_Comment H [Automat ed message] 1422913388) The system [employer] generated this result transmit tennille reference range : 35 - 45 mmHg. The reference range was not used to interpret this result as normal/abnormal . PO2 (test code = See_Comment H [Automated message] 6695356378) The system [employer] generated this result transmit tennille reference range : 80 - 100 mmHg. The reference range was not used to interpret this result as normal/abnormal . BE (test code = See_Comment [Automated message] [id number]) The system [employer] generated this result transmit tennille reference range : -3.0 - 3.0 mEq/ L. The reference r christine was not used to interpret this result as normal/abnormal . HCO3 (test code = See_Comment H [Automate d message] 1186829592) The system [employer] generated this result transmit tennille reference range : 22 - 26 mEq/L. The reference range was not used to interpret this result as normal/abnormal . %O2HB (test code = 100.0 % 95-98 H 4954272767) NA (test code = 135 mmol/L 135-145 5947142779) K+ (test code = 5.7 mmol/L 3.5-5 H 9062143233) AC CA IONZ (test code = 3.50 mg/dL 4.5-5.3 L 6775346247) GLUCOSE (test code = 171 mg/dL 70-110 H 3671783555) AC Hematocrit (test See_Comment L [Automa tennille message] code = 4222507780) The syste m which generated this result transmit tennille reference range : 40 - 54 VOL %. The reference range was not used to interpret this result as normal/abnormal . THB (test code = 8.8 g/dL 13.5-18 L 4840883002) AC TC02 (test code = 30 mmol/L See_Comment H [Autom ated message] 5614630778) The system [employer] generated this result transmit tennille reference range : 23-27 mmol/L. T he reference range was not used to interpret this result as normal/abnormal . Lab Interpretation Abnormal (test code = 94252-8) [facility] ACT HIGH [id number] 15:27:00 Test Item Value Reference Range Interpretation Comments ACTHR (test code = See_Comment H [Automat ed message] 9674013546) The system [employer] generated this result transmitted ref erence range: 96 - 152 Seconds. The reference range was not used to int erpret this result as normal/abnormal . Lab Interpretation (test Abnormal code = 52375-5) [facility] ACUTE CARE [id number] 15:20:00 Test Item Value Reference Range Interpretation Comments PH (test code = 2) 7.35-7.45 PCO2 (test code = See_Comment H [Automat ed message] 7823659161) The system [employer] generated this result transmit tennille reference range : 35 - 45 mmHg. The reference range was not used to interpret this result as normal/abnormal . PO2 (test code = See_Comment H [Automated message] 3644804588) The system [employer] generated this result transmit tennille reference range : 80 - 100 mmHg. The reference range was not used to interpret this result as normal/abnormal . BE (test code = See_Comment H [Automated message] 9440284448) The system [employer] generated this result transmit tennille reference range : -3.0 - 3.0 mEq/ L. The reference r christine was not used to interpret this result as normal/abnormal . HCO3 (test code = See_Comment H [Automate d message] 8252939474) The system [employer] generated this result transmit tennille reference range : 22 - 26 mEq/L. The reference range was not used to interpret this result as normal/abnormal . %O2HB (test code = 100.0 % 95-98 H 9570589949) NA (test code = 135 mmol/L 135-145 1789043093) K+ (test code = 4.5 mmol/L 3.5-5 1860531089) AC CA IONZ (test code = 4.80 mg/dL 4.5-5.3 4800870096) GLUCOSE (test code = 118 mg/dL 70-110 H 0937067097) AC Hematocrit (test See_Comment LL [Automa tennille message] code = 2379050624) The syste m which generated this result transmit tennille reference range : 40 - 54 VOL %. The reference range was not used to interpret this result as normal/abnormal . THB (test code = 7.5 g/dL 13.5-18 LL 7857824808) AC TC02 (test code = 32 mmol/L See_Comment H [Autom ated message] 0862838334) The system [employer] generated this result transmit tennille reference range : 23-27 mmol/L. T he reference range was not used to interpret this result as normal/abnormal . Lab Interpretation Abnormal (test code = 69774-9) [facility] [id number] 15:16:00 Test Item Value Reference Range Interpretation Comments ACTHR (test code = See_Comment H [Automat ed message] 9686949329) The system [employer] generated this result transmitted ref erence range: 96 - 152 Seconds. The reference range was not used to int erpret this result as normal/abnormal . Lab Interpretation (test Abnormal code = 95286-5) [facility] [place] [facility] [id number] 15:09:00 Test Item Value Reference Range Interpretation Comments ACTHR (test code = See_Comment H [Automat ed message] 4740061286) The system [employer] generated this result transmitted ref erence range: 96 - 152 Seconds. The reference range was not used to int erpret this result as normal/abnormal . Lab Interpretation (test Abnormal code = 82595-8) [facility] [place] [facility] Packed RBC (in units), 2 Units 2019-09-01 14:20:50 Test Item Value Reference Range Interpretation Comments Cross Match Result Compatible (test code = 4409) ISBT Blood Type Code (test code = 625168) Unit Blood Type (test A Pos code = 4410) Unit Number (test [id number] code = 4411) Blood Expiration Date & Time (test code = 891218) Status Information Issued (test code = 4412) Product Red Blood Cells Identification (test code = 4413) Product Code (test S8030C19 Performed at [facility] code = 4414) Laboratory Services - [facility] Blood [address] [place] [address]Qqsp Free: [phone] A No. [id number] [facility] ACUTE CARE [id number] 14:13:00 Test Item Value Reference Range Interpretation Comments PH (test code = 2) 7.35-7.45 PCO2 (test code = See_Comment [Automat ed message] 9131274431) The system [employer] generated this result transmit tennille reference range : 35 - 45 mmHg. The reference range was not used to interpret this result as normal/abnormal . PO2 (test code = See_Comment H [Automated message] 2104004912) The system [employer] generated this result transmit tennille reference range : 80 - 100 mmHg. The reference range was not used to interpret this result as normal/abnormal . BE (test code = See_Comment H [Automated message] 6437839393) The system [employer] generated this result transmit tennille reference range : -3.0 - 3.0 mEq/ L. The reference r christine was not used to interpret this result as normal/abnormal . HCO3 (test code = See_Comment H [Automate d message] 7530727431) The system [employer] generated this result transmit tennille reference range : 22 - 26 mEq/L. The reference range was not used to interpret this result as normal/abnormal . %O2HB (test code = 100.0 % 95-98 H 0038421975) NA (test code = 135 mmol/L 135-145 6135548292) K+ (test code = 4.2 mmol/L 3.5-5 5035555600) AC CA IONZ (test code = 4.80 mg/dL 4.5-5.3 5047819641) GLUCOSE (test code = 112 mg/dL 70-110 H 8038520646) AC Hematocrit (test See_Comment LL [Automa tennille message] code = 6349805559) The syste m which generated this result transmit tennille reference range : 40 - 54 VOL %. The reference range was not used to interpret this result as normal/abnormal . THB (test code = 6.5 g/dL 13.5-18 LL 4364503244) AC TC02 (test code = 32 mmol/L See_Comment H [Autom ated message] 9101807244) The system [employer] generated this result transmit tennille reference range : 23-27 mmol/L. T he reference range was not used to interpret this result as normal/abnormal . Lab Interpretation Abnormal (test code = 61294-4) [facility] [place] [facility] [id number] 13:57:00 Test Item Value Reference Range Interpretation Comments ACTHR (test code = See_Comment L [Automat ed message] 1843682367) The system [employer] generated this result transmitted ref erence range: 96 - 152 Seconds. The reference range was not used to int erpret this result as normal/abnormal . Lab Interpretation (test Abnormal code = 67530-1) [facility] [place] [facility] Packed RBC (in units), 4 Units 2019-09-01 12:50:33 Test Item Value Reference Range Interpretation Comments Cross Match Result Compatible (test code = 4409) ISBT Blood Type Code (test code = 948964) Unit Blood Type (test A Pos code = 4410) Unit Number (test [id number] code = 4411) Blood Expiration Date & Time (test code = 924753) Status Information Issued (test code = 4412) Product Red Blood Cells Identification (test code = 4413) Product Code (test G3289B51 Performed at [facility] code = 4414) Laboratory Services - [facility] Blood [address] [place], [place] [address]Puit Free: [phone] A No. [id number] [facility] GLUCOSE (AUTOMATED)2019-09-01 11:29:00 Test Item Value Reference Range Interpretation Comments POCT GLU (test code = 5741900077) 126 mg/dL 70-110 H Lab Interpretation (test code = Abnormal 91671-7) [facility] GLUCOSE (AUTOMATED)2019-09-01 09:37:00 Test Item Value Reference Range Interpretation Comments POCT GLU (test code = 6388879618) 100 mg/dL 70-110 Lab Interpretation (test code = Normal 63258-0) [facility] GLUCOSE (AUTOMATED)2019-09-01 06:00:00 Test Item Value Reference Range Interpretation Comments POCT GLU (test code = 5968056611) 90 mg/dL 70-110 Lab Interpretation (test code = Normal 56966-3) [facility] GLUCOSE (AUTOMATED)2019-09-01 02:26:00 Test Item Value Reference Range Interpretation Comments POCT GLU (test code = 2782416453) 53 mg/dL 70-110 L Lab Interpretation (test code = Abnormal 30359-5) [facility] GLUCOSE (AUTOMATED)2019-08-31 22:18:00 Test Item Value Reference Range Interpretation Comments POCT GLU (test code = 6738345068) 151 mg/dL 70-110 H Lab Interpretation (test code = Abnormal 43744-2) [facility] [place] [facility] - Type and Screen expires at midnight on the 3rd day after it was drawn. A current Type and Screen is required when RBCs are requested. For all other blood products, a Type and Screen performed during the current hospitalization i...2019-08-31 20:48:31 Test Item Value Reference Range Interpretation Comments ABO & RH (test code A Positive Performe d at [facility] = 20) Laboratory Serv ices - [facility] [address] [place], [place] [address]Toll Free: [phone] 266CLIA No. [id number] IAT (test code = Negative Performed a t [facility] 1185) Laboratory Serv ices - [facility] [address] [place], [place] [address]Toll Free: [phone] 266CLIA No. [id number] [facility] [place] [facility]2019-08-31 18:07:00 Test Item Value Reference Range Interpretation Comments POCT GLU (test code = 1857100023) 76 mg/dL 70-110 Lab Interpretation (test code = Normal 75335-7) [facility] [place] [facility] [id number] 16:26:00 Test Item Value Reference Range Interpretation Comments Case Report (test code Surgical Pathology ? ? = [id number]) ?Case: [id number] ? Authorizing Provider: ?Marlo Osman MD ? ? ? Collected: ? 08/26/2019 0744 ?Ordering Location: ? ? [facility] Surgical ? ? ? Received: ?08/26/2019 0923 ? Center [facility] ? Pathologist: ? Ewa Cabrera MD ? Specimens: ? A) - STOMACH, pyloric mass ? B) - ESOPHAGUS, BIOPSY @ 40 CM ? C) - ESOPHAGUS, BOIPSY @ 39 CM ? D) - ESOPHAGUS, BIOPSY @ 38 CM ? E) - ESOPHAGUS, BIOPSY @ 37 CM ? Final Diagnosis (test b8ounBIgIAAdm3qjLRGakY code = 4428497076) FuZzEwMzNcZnRuYmpcdWMx UGtrlyOxZEtbw9AvV1HsKg AwMFxhbnNpXGRlZmxhbmcx TACeJVC9hvAyLYUbJOljUE LhKZgzRr7hcZUmkXwxAyRa VATwe5kcxeWAlhwccQy4y2 nhBWAiZoV5wHUrUPejS4lf yhTkyMGbHTMoZEg5aR85JP RegU9oyLHjJNhwqbCcNfH3 DQddPSRgNvW9MKZxwNJcNP PmJ4jgTVUbJQauFWEvSVos yGUyDUB8lKgre5L4rSKhnN BsrEpoBsReCvQdBTNLv5Mh HQe7vMfiV9YuADFfNnW1hE QgUGFyYWdyYXBoIEZvbnQ7 xL21XWqbrpN2mNHkj6Owa4 4qq151qT5gkNXsRPW0FRMt AEVzkDYbROFtIDW8KZCrpI MyK7cyVUhaUH2rvjfbQZP6 MFxtYXJndDcyMFxtYXJnYj HshUHjDONppHxaPBueu382 AFO4XyEnYJ2nA0Fgy0H1lV 9maXRcZGVmdGFiNzIwXGZv kl5maAPsMUfhi7KhRZW7nn M8oNPwbATePBMpSW04Klhy h9QyRisqOVV1NDPbcsBcc9 Yui9byTkKhqsUuI7ccK2Jg ZHJoZWFkXHBnYnJkcmZvb3 Wgw8HbiAPpiGb8f3nzTTSl ZCPrfJepm9maUBL9BLEcQ9 I3nPZkl3efBDuxBYMkcYR9 ujIwISGgkAHoU5TneQ2jTB vmDF4wnxp5v2dnOpBfPR5a uejdr1yfBRggHZKyUTY0Xi RdWWKww0FxyiymGjXve0Wq qIUtQPlsS30ch856XWRkfy VsS7ukzXHinevliMUirgwl EUeyxcB7NCWbXIUlIBbqEL YxXGZzMjBcbGFuZzEwMzNc aGljaFxmMVxkYmNoXGYxXG ntR2zyMdBeMhDhCWtdHRXx KG6tR1LILKWGVIgwGLqSK8 NLSxLPGJKNLBBOE7xOSUIB UW5ZQZzkwIYhKRCsAAFoKW AEBAJJLljTTHKABZ1NMOSj D6iHYyFdBRULMw8SPHkkB9 lCVZEDN5BTWNVHKAbTNThC VOWDHCJZL3DSJWNZVQofDE NzNHNrXYGqCL7BDkjITbCM TlZPTFZFRCBCWSBBREVOT0 6YIMncNEVvYZDeECNiYH1E MawGWaDHF2TlWI1KB7rYFQ QgQlkgSElHSCBHUkFERSBE WVNQTEFTSUFccGFyICBccG AnNACrAQBWJ2MEEHdPIphr CKWfQBAeV45fXEAXW0VMDB gecLOyMWUyWZMnOASIS9kK EW8TJaIZERWPM7YoJ9jPAA HBQtFFP3NVHnMFZB8ASNYJ GPGHCXPuWGDMAqUVG2EBWe VzE8oQYQJRQLBVOTSHMSJJ O9SKLPlHQ1fiKCNzFOJzGD CuPR9RTSMQR7XBRCVDSDSK REVOVElGSUVEXHBhclxwYX JgZx5cNXTJUEfFT1CWFKNQ VCAzOSBDTSwgQklPUFNZOl xwYXJccGFyZFxwbGFpblxm VZjeppF6HIElCTcePBCeLU ZzMjBcbGFuZzEwMzNcaGlj aFxmMVxkYmNoXGYxXGxvY2 hsGdNiEuGxMQFuNJLqFB1j M89ALP5KSXArSUYUH1DTCQ oPNGtbUM4XYHUPWQ4IKDUZ FWRNDBvZR2aXRLUTW64VZC GQVX8XCChEFHctEwMGVxWI GoXNC54NHHNYHFOfgOPtMZ FsXHBsYWluXGYwXGZzMjRc lDnkbP3kCoUuXmMxSRwhPY 9nJYKtP4mnjPTlDBIcAGXi J6egVmSkkV0wiCzdBYvfmj IwICAgICAgLSBOTyBEWVNQ TEFTSUEgSURFTlRJRklFRF ygJMGwxYNyKWXkXGHWH1IK YQaBCsesHOYvTzofL34aER HDT4DVJWzlnLFfKKCnhcLn nSgltT5vFpEgZuCdZRjvbW FpblxmMVxmczIwXGxhbmcx JVTuFNfeY5cdCwMlRDQsfB cxLNpgu6VzWJXqRTQeRjYk ICAgICAtIENPTFVNTkFSIE 1TT32CMNXGWEZEXXdEODQM VElOQUwgTUVUQVBMQVNJQS paH11RD4sYLRHFNIRJUBSU IEJBUlJFVFMgRVNPUEhBR1 KGDXZpvcJcGLTqPD7tQr3v LRuSONwFD8eZZEoCQS8YRA ZJRURccGFyXHBhciBFLiAg PUPMXFuQF5HPPQVLSPEeLi BDTSwgQklPUFNZOlxwYXIg IXRzVDEvKLCKBQNYV6ODVB 6QV01FTBMHWOBSKRLYRmaM GZNGR05JBBLFDFYLV8cgUR VnPGKzEHQmKE6QXWJGB6XA QVNJQSBJREVOVElGSUVEXH DqjlaaGWHgiUjfyF0zZmQa PrWvWnrbPB9vNNEbG1emnO GzYAPkNZHcP3fiMsEvfZ5q aFxmMVxjZjJcZnMyMiBNdW UuMZEtaOEXZZtszIErkJ4r SH6XRmLuYYGbFPVrZjYaOK FlLZB0WzRcEV8llHrqtO6e FpUbDlRwNGshXK7tAZCyI5 njsEGbKUBsVERkP0abMkYd kL4txDeiPJsunyAdJXGqgn ctANI0m8uwlZPpJTHosHJx UjKyBSZnTCReh4isHQTyyT FuZzEwMzNcZnRuYmpcdWMx HYBdSqHmb7rnx939bPJns0 whUJWxKvA4fFNjHGXrjEyv tbj7fZfkGxNgPVHbz8xbkb BcZmNoYXJzZXQwIEFyaWFs R075LHTfGTeml8grs0WtPA KyzZErt0C3JKPCDGufClMp W888w3vem2vuwrYppJJ5HL HuBLA0ADjckmInqyZ0WGjd aMKbEnP3EWrludAnZIdxjk HyfiJyLgh8USPeT623DQZ1 fVohs7tbACW7ZSBgKOQsGf buJj7phXVyH595DIXiPUUZ PMMttBz7OKKrijIfmsWreV VXa495C526p8wlQKRkalCl lScYorofp6mhG099XHOzqY VydzEyMjQwXHBhcGVyaDE1 TNQvXU9dqpshCOqrWZytPQ KkwyK0WAMvnMGgN6LfHBZv XI0wvaqbZLW9HSegJOXgDG G8CoByDPFns3Uphhg8XxAl jk6zcb57TSW7k7IlnMskUR W9WCL3OnSrSy9njGVbYORj SP4qZpHrxEExGGFzff50aN nwNLfdnmSveU5dUlOjSRHk kYTyIKMvYQ9xiSPcWUAomQ 5ucmxjXHBnYnJkcmhlYWRc kIrairCvYq2jlUpaYZF5WD viR0hhaQ6bXkL7XCnvN1mo iZ2hCHi3USdyuFN8FZTzkW 5uRU4gimupu3gmZMapBAbu DGHxvqG8oqG2TGDdpGZcB8 XcgQ0pQRGtGV0nxfame5by TJZ7RKtjGTZdMDJ6YoPdOT Cjo1Xabdt6LuDks6JubRCd MRdjY49iz588PORgxlFfD7 xwbGFpblxwbGFpblxmMFxm eaV1MYOmQJLlADoxOANoCT ZzMjBcbGFuZzEwMzNcaGlj aFxmMVxkYmNoXGYxXGxvY2 zfRcSdO5BiGWEyQeNamADt FMtzzZP4BVVkCMWne77twZ e1AVWpbuwzu0BiPYGgcAKu eTDsjP3ybaDmu3aiHYLwHJ ArCYXxN8VbECD2vUUlYFTb aOLwmGX9XT6zvaNqOV6bFE UgYnkgcmVzaWRlbnRzLCBm DYeuj9gbKX2fHYLzhTgbfE 0ovCS5GLTpu1kiyOCvqWTu d6fnr7EhmkEgNEbyJDNmKU osGLEbQLPhKV9yJYAlqZAh aiOun8O4AzixnNGzmxjsKt hjvbY1HPtmpnapGXGpNTfj K5bqFlGoGAUjqWhyLhwig8 NoXGYyXGZzMjhccGFyfX0= Final Diagnosis Comment u3rpxDXoFBIbdGJmSxGoTM (test code = YoQTMwj1ljCDNgwWEsPzZd 4075611246) MzNcZnRuYmpcdWMxXGRlZm Mjb5rwj100jBSxh7nyZPSb KqD2sLMxVMRazYXzA321LH OwFBjrk5ipm6KpLQKjqETi d0R1QATTvjeqrNe2nLjbJ7 8qj1O3QurwY7blGJFeFWTm H7HsKN6hFKFmXkt1JMI1XN B9QOLoLIUqU0KuVJ1aCMUu pFHwBTv9e4rtiTbrTCWwQM T0x8heADgtruGzSW9ozw7v gYb4h8eurtUmJGOcOLQwrH BNDQNmQ7BdgWgrRi6oeKc6 lYteCevjSXX9Etg2ZF3haj 81olh6iYwkAHTongfbIhZ9 XUodVXXspbknIAi2ENrsUD LdhFWbOWWuvFHaK8YpOYmb PX7eljv1CmMnIC3cjaijLY rhRIEmVDR4ZvEmNPVcu5Gn exxrDeAhbn2tqb78DLG4n6 BvmKqnNGV9QCV6CbGuHa6j xWEpOLQlCT2tVmPkoLPcMT Ndqv37dOphZMmzyhMhbX3x DmIzJOUusABgSYBeBP2clC XhTGNfmZ7ceyfyJSNuZnBe thufSTDejDsccyXgGl7cxI ioINJ9JVamZ2jdgY8uHoU1 UWopQ6yumA4yNJl6WAwosU E1CGQyfM4sDZ6mfonhh6za VBH0JEgvNCLzvvE9vfRbDW EzzXVxE5OwdL12GxMtqSKo V4TaeX4kRCveQBLxmvc9Et MjQz2stNXjuMO5EScuGrwb YWdlXHBnbmNvbnRccGduZG VjXHBsYWluXHBsYWluXGYw LOZdLxOcrBfeaBlxlK5zVy SlLkTfMUvnJT1gOIYsB1dv dLOeDQUrBOSrR2rnYaLiyT 9jaFxmMVxmczIwIERyLiBR mPAswKZaPUHsvjxjz9FjOY TvQHPoqWetYSGrt6Jjs0Uw T2qbJO6lGORiD3JqoWJlnX HrvMtehwqqZF0jl2IgYhhs cLI6WBGywuBbT52sI9Gpgc Y4sSQjEBFlCWFadCTqym5y aXMuICBccGFyXHBhcn0= Clinical Information 1. R/O CARCINOMA2 - 5. (test code = ? R/O BARRETTS [id number]) Gross Description (test y4ezjZTdRADloAReSlFyPM code = 3687732146) IoGLHyx8atDIPkvCUfVnCw MzNcZnRuYmpcdWMxXGRlZm Ffl9eth090kWGsv6hxMKKh JuL2qOBbJHIvyBSbX818JR UpPTgzx2gsf0OiWRRgaUBn s9N9YJVRudfzlPa3c6elCk XkRcO2aFOqJKkiT8fzdbXs kRSfFTWrR4AcgjWZSYVwKt r6kSfsN26pw3G1VeziH6hu ZWQwXGdyZWVuMFxibHVlMC B6ZAJyVIZ9IRlsrfBomvQ8 BTllbQMdJzX6PVa3i4rsbT zcUNRhYCB2v1rsSCiargFa AM6wop3lfYr1n4agzwLjKW GxORLbxBCJDMRcJ1XbbHyj Ez9skJm7yQvuOkfeEOB9Hn y1EU1eeo16gqu8vEusZLKk rogqAuH3HQkeQGMldvbeZR s6APpjOFMpgAEuQSCocULj W3FlYUmiNB0ilzn6QcJaRQ 9rlapiNAbvNUSqLCC7KwZe QEApu9WrqccvWuYwqv6lqk 16NHV2r2ZrtRszKZK7UIZ0 TiEhEr2gzULxKHSmDT2xTy UcwUIiKTGrxs34gJgyVAqq rmOekZ9nDkQaPQAanRUgUH YxYQ6jqCQfXRFtrY4ujgdh XHBnYnJkcmhlYWRccGdicm XwAs1wfOinPTI1QJofM3bs pI2tSzC9NFudS2tblS5mKZ v9ONeyzGQ8VBHavR0cIO3n pclck6rjZHG5CFjvUSScms O1doHvRQTruUNaU6CswB92 HmCgaNVuZ9HimW4oMYyjMR Hrdso1XgUfUu2fbEPsmJD4 MFxzYmtwYWdlXHBnbmNvbn RccGduZGVjXHBsYWluXHBs JCroVCMiPBDhUnZcu8WrDC Lef2xmMdXza2tpfRa7OQab bFxwbGFpblxmMFxmczIwXH LhDVfcJKTtNGIlQcMmD1Dv T0xzZE2bHUIfzjPaCJQqfY UySMQqdzQub9WhUBgxlsGj LQUujAoeVBV3oVKiJIHyLN CrTLReZF67NKPlTHmmRPUi LBMeByMcjKkkOSbfUEc2Qj xwbGFpblxmMVxmczIwIHMg bmFtZSwgVUggbnVtYmVyIF xwbGFpblxmMVxmczIwXHU4 JjZqXTbdFNFbxNjrfL2kWk AsEmBoIFEykN7cXVFfSHLb qYrmvetpBY4fu6ZjlRplxW 0jBiWzCgXaHOp8DVVrQSIw Cde4UGScMNhgYUExIIVmHr YaKVXhWZIbr23twGU8mjGg YnU2JVGggb7ccJ4xVTzgmz RthJsqepQtfeNzgZ4fpQPc kTJeu43ngGS3cRUtrLQbAy JcZ20jvsKpPQxxPqrglBNi GnblqGUhDzNcC27yLEGsFp Z7CRKdCnU7ZCOpMEIqnMev WO5zZZqvYY73JRziQP60AU NtIGFuZCAxLjIgeCAwLjcg xXPeMrLgE70eQhUZrBZgYf XaJEYaMPQ4ASEaKEVnjPFv fhZubpAxzJ6nYNXwQQ2dJA IipvegoVw1YYChA3Irl81r ZCByZXZlYWxpbmcgYSBmcm biUhhwDSQvq3o4kC6rAZEh tMUvy0ZkNgPeCF3lDPXwSO QoVVTkKKjqBVJeMjHsB84s quElBYNoRNLusIDsM1OfHF BhbmQgdGhlIGVudGlyZSBz pPQaoZ0riuUvwuJipJUiwO J5MMOlZVSkBJHjCDUOUMOm DHTugyWRTGA2sH2jCNRtRN M8QQOencWTUXnxvODealvr WWencnEgPVT6HzZzMZccUQ UweSakjV1kMaUsQdOlUZUV LThseCYyD5WdoZKtu6r3pU 9pZCBmcmFnbWVudFxwYXIg NGKkHJOWATalu2Btv29uST szsnmfi5RoiC1lnCZwpKJf HfOoX76xwuFcjVWnXVO4QN ExMCwgMiBzbWFsbGVzdCBm tkAvuLLmeICgIMR0Js0ztW JtKHEkNEQnseW4FZf2NDXf stPXtFMokA2hoeNGXAroPS SrL3XlenGcTGvaYWDfvk7s bGluIGxhYmVsbGVkIHdpdG ggdGhlIHBhdGllbnRccGxh cZ3aWdSkWiOlFJd3ICFmLz BcJzkyXHBsYWluXGYxXGZz PxLrebDoAW8yYQBLUQDqtE 0gWMHcDXUecDpaS6UsGNDj fC9yy2skZAAlGJXbL51rgQ isbY7aRjVxQtGiXUc9JYLj NTMyYdz7ULOaZUlgTLHmNX YoHuWrBHFuDZQhx98kyTN9 hqKiZfKiEZFqox7crO2bLK cfmtFspAhkbzGac8E5VAFs b5S1JTUggtFwnWEdcCWiIT ElMyX0YAVbFwE6HLEnJfUa jUbfBWFjVNRaeOOmqF5mbu PtlmGuyUq3MTKnVJL6gPXi aNdsAEZfOklncQT4VUDvLr PffzYei5JflPi4qNDaTHgm KKIvjO1beE2bGbHeSXZdjc CUrBZdmO1rfdFXQCivMRWl G4BincNlBHrtLNZxqd6jeF luIGxhYmVsbGVkIHdpdGgg dGhlIHBhdGllbnRccGxhaW 0kEnKeNyUjERu2ORQoNzPh JzkyXHBsYWluXGYxXGZzMj ZqztPqDN3lNVCDETDimE3x GTBgHGLdmVokL9HcUNMbaQ 6ms9laZDUyEoukU38szItl lA4qMnVyItWfXYb2OOYaXN OkJkq8OPDaSQgfAPMiRFDo HyWeYVJrIBRzc75zuRD7vu WaAdGqXKKtxj3vrE8gLJhq dwXyfQndgfNxj4T8MUCvo2 L7HOSzigVonKWydZMaXVRe GdS8LPNzCkL4BHBhSwCxyW mxQGBiQKRiaGYimJ6uwiTl jbRwmOc8YWJyBXH1nHTgoT eeHKOwAdezxNY0NBRpHkJo zmBzj9HraEn8lHLxRTepDF EudV7ooE7oEtAfTWWduaXK eERilS9orxYDATluXNYgS9 XcreAwCMqwEBOjqn6bhJst IGxhYmVsbGVkIHdpdGggdG uyLDTppLtkulOqtIyvhG0s YaRtJuCaLLo9PYAxFqQhWx kyXHBsYWluXGYxXGZzMjAg pbWbAT2nRSYYCPQrkD5lBM YnPTDpbFgkQ6UnNZVeaT7s s2ooFGBtVcfgT65zqQmdwJ 5hUqKnVgBeYTm5GGQzLUNt Vch5AQUqTQsoDYAjJMSwJo MaGFUzAYFyo03soTS1saTn GyYuJDZmqn3ozK1yKKwxif KidUdtmhCbs3D8HUHua0I2 ZSBmcmFnbWVudHMgKDAuNC P5CGOoAvM0IFCaUcTenAuo KZLfEZWirCHdyJ3lggPfoa RjnWh8JQHoBSB0gQSkcMma JTClHfslzQB1QIOyRlPmha Jzi3DnrXb3vSCcSWrcFFSu tY2giV2xLZJbOFKjnkVCiM BdvN6mwoKBLXcjSBDeU5Nj jmHzECgtJHUudx2fbDxcPD xhYmVsbGVkIHdpdGggdGhl EWYrwLtcosLnoTrmiA1aPp LtNdSaVAg5ZEFlZiCbKpyj XHBsYWluXGYxXGZzMjAgcy LtLI7cZMHDIWJhrN7uGZSb BYTccJdiG1VnRLQjeU1dg6 vhSDGqPghjO56yuRyliF9m CsBkBsSdQGs0DHExGBCjXg c5YRQmRFnqSLKuPFPqPeXb FSVcSLXan06vsKH4szLhUf UnDNBqxj7fgZ3nMDbxvtXh tUczceJcr5S0VDEtv9U2WE BmcmFnbWVudHMgKDAuNiB4 QIZkQrL6WWZbHoRnzZnwDO UtVZLheOJjgR3gapPjjlCx jTv9OLKnHRS7sUUclRufHN SlRrzgnKW3VXAtSvLyqwGx w8XvsKg2fKOsRDgzQCImfZ 3zfY1kGFVlWUFntgquEMLb XHBsYWluXGYwXGZzMjBccG dtvT1qHlBuXuGlKDXKSQCa JZ93ilxhecSWZXMxBDB9vS 7wx2sfy5FzHPRzeTU1GW55 ZQzmxROwfdwvAltyvuA5DX dbpxplIHHkYUfoW7ckNuYm NGMqrNgeBfehh9NoZDNkQG RoMBiwglD1BREtwhowMSVb qXpmiXefkQ2xUmUcMfWvAI xwbGFpblxmMVxmczIwXHBh cn0= Embedded Images (test code = 8622297927) [facility] 14:14:00 Test Item Value Reference Range Interpretation Comments POCT GLU (test code = 2065981908) 88 mg/dL 70-110 Lab Interpretation (test code = Normal 73035-3) [facility] METABOLIC PANEL (NA, K, CL, CO2, GLUCOSE, BUN, CREATININE, CA)2019-08-31 10:39:00 Test Item Value Reference Range Interpretation Comments NA (test code = 137 mmol/L 135-145 9161624953) K (test code = 3.8 mmol/L 3.5-5 6554422263) CL (test code = 104 mmol/L 98-108 5016417007) CO2 TOTAL (test code = 27 mmol/L 23-31 4594744756) AGAP (test code = 2-16 2029089291) BUN (test code = 25 mg/dL 7-23 H 4715112951) GLUCOSE (test code = 115 mg/dL 70-110 H 4368051878) CREATININE (test code = 1.79 mg/dL 0.6-1.25 H 6625742625) CALCIUM (test code = 7.8 mg/dL 8.6-10.6 L 7954012501) eGFR Calculation mL/min/1.73m2 (Non-) (test code = 6671539978) eGFR Calculation mL/min/1.73m2 () (test code = 4266116350) JUAN LUIS (test code = JUAN LUIS) [...] tests). Lab Interpretation Abnormal (test code = 37142-4) [facility] GLUCOSE (AUTOMATED)2019-08-31 10:31:00 Test Item Value Reference Range Interpretation Comments POCT GLU (test code = 4532208276) 137 mg/dL 70-110 H Lab Interpretation (test code = Abnormal 36538-9) [facility] WITH [id number] 10:30:00 Test Item Value Reference Range Interpretation [...] (test code = 35.0 fL 38.5-51.6 L 45002-5) RDW-CV (test code = 14.7 % 12.1-15.4 788-0) PLT (test code = See_Comment [Automated 777-3) message] The sy stem which generated this result transmitted reference range : 150 - 328 10*3/ ?L. The reference r christine was not used to interpret this result as normal/abnormal . MPV (test code = 10.4 fL 9.8-13 19412-8) NRBC/100 WBC (test See_Comment [Automat ed code = 5809038981) message] The system which generated this result transmitted reference range : 0.0 - 10.0 /100 WBCs. The refer ence range was not u sed to interpret th is result as normal/abnormal . NRBC x10^3 (test code <0.01 See_Comment [Auto mated = 3813350161) message] The s ystem which generated this result transmitted reference range : 10*3/?L. The reference range was not used to interpret this result as normal/abnormal . GRAN MAT (NEUT) % 60.5 % (test code = 770-8) IMM GRAN % (test code 0.20 % = 2295474174) LYMPH % (test code = 24.9 % 736-9) MONO % (test code = 9.6 % 5905-5) EOS % (test code = 4.1 % 713-8) BASO % (test code = 0.7 % 706-2) GRAN MAT x10^3(ANC) 5.16 10*3/uL 1.99-6.95 (test code = 0998049440) IMM GRAN x10^3 (test <0.03 0-0.06 code = 8834579814) LYMPH x10^3 (test code 2.13 10*3/uL 1.09-3.23 = 731-0) MONO x10^3 (test code 0.82 10*3/uL 0.36-1.02 = 742-7) EOS x10^3 (test code = 0.35 10*3/uL 0.06-0.53 711-2) BASO x10^3 (test code 0.06 10*3/uL 0.01-0.09 = 704-7) Lab Interpretation Abnormal (test code = 14155-9) [facility] GLUCOSE (AUTOMATED)2019-08-31 06:17:00 Test Item Value Reference Range Interpretation Comments POCT GLU (test code = 6928713665) 177 mg/dL 70-110 H Lab Interpretation (test code = Abnormal 20115-9) [facility] GLUCOSE (AUTOMATED)2019-08-31 02:18:00 Test Item Value Reference Range Interpretation Comments POCT GLU (test code = 2091282341) 86 mg/dL 70-110 Lab Interpretation (test code = Normal 42719-0) [facility] GLUCOSE (AUTOMATED)2019-08-30 21:57:00 Test Item Value Reference Range Interpretation Comments POCT GLU (test code = 8885112371) 140 mg/dL 70-110 H Lab Interpretation (test code = Abnormal 49348-2) [facility] GLUCOSE (AUTOMATED)2019-08-30 18:10:00 Test Item Value Reference Range Interpretation Comments POCT GLU (test code = 6805860211) 95 mg/dL 70-110 Lab Interpretation (test code = Normal 86323-8) [facility] GLUCOSE (AUTOMATED)2019-08-30 14:11:00 Test Item Value Reference Range Interpretation Comments POCT GLU (test code = 4739592222) 123 mg/dL 70-110 H Lab Interpretation (test code = Abnormal 65892-4) [facility] GLUCOSE (AUTOMATED)2019-08-30 11:04:00 Test Item Value Reference Range Interpretation Comments POCT GLU (test code = 6858851419) 136 mg/dL 70-110 H Lab Interpretation (test code = Abnormal 91764-3) [facility] GLUCOSE (AUTOMATED)2019-08-30 05:39:00 Test Item Value Reference Range Interpretation Comments POCT GLU (test code = 8374474252) 172 mg/dL 70-110 H Lab Interpretation (test code = Abnormal 69624-5) [facility] GLUCOSE (AUTOMATED)2019-08-30 04:19:00 Test Item Value Reference Range Interpretation Comments POCT GLU (test code = 8111517388) 198 mg/dL 70-110 H Lab Interpretation (test code = Abnormal 23415-7) [facility] GLUCOSE (AUTOMATED)2019-08-29 18:14:00 Test Item Value Reference Range Interpretation Comments POCT GLU (test code = 6135106950) 93 mg/dL 70-110 Lab Interpretation (test code = Normal 01490-2) [facility] GLUCOSE (AUTOMATED)2019-08-29 14:19:00 Test Item Value Reference Range Interpretation Comments POCT GLU (test code = 8809230840) 70 mg/dL 70-110 Lab Interpretation (test code = Normal 56115-2) [facility]. METABOLIC PANEL ([id number])2019-08-29 09:59:00 Test Item Value Reference Range Interpretation Comments NA (test code = 136 mmol/L 135-145 1103735700) K (test code = 3.5 mmol/L 3.5-5 0318080139) CL (test code = 105 mmol/L 98-108 5213261087) CO2 TOTAL (test code = 26 mmol/L 23-31 6051040156) AGAP (test code = 2-16 4015744237) BUN (test code = 21 mg/dL 7-23 4362297650) GLUCOSE (test code = 58 mg/dL 70-110 L 5035148070) CREATININE (test code = 0.95 mg/dL 0.6-1.25 4644022123) TOTAL BILI (test code = 0.2 mg/dL 0.1-1.3 3415489246) CALCIUM (test code = 7.4 mg/dL 8.6-10.6 L 8300144182) T PROTEIN (test code = 5.2 g/dL 6.3-8.2 L 3454778691) ALBUMIN (test code = 2.4 g/dL 3.5-5 L 0708057309) ALK PHOS (test code = 67 U/L 34-122 2322169105) ALTv (test code = 15 U/L 5-50 1742-6) AST(SGOT) (test code = 28 U/L 13-40 8336016995) eGFR Calculation mL/min/1.73m2 (Non-) (test code = 1654203006) eGFR Calculation mL/min/1.73m2 () (test code = 9951992770) JUAN LUIS (test code = JUAN LUIS) [...] tests). Lab Interpretation Abnormal (test code = 03216-2) [facility] GLUCOSE (AUTOMATED)2019-08-29 09:59:00 Test Item Value Reference Range Interpretation Comments POCT GLU (test code = 6833563273) 130 mg/dL 70-110 H Lab Interpretation (test code = Abnormal 10835-6) [facility] GLUCOSE (AUTOMATED)2019-08-29 06:21:00 Test Item Value Reference Range Interpretation Comments POCT GLU (test code = 1515249562) 79 mg/dL 70-110 Lab Interpretation (test code = Normal 65172-9) [facility] GLUCOSE (AUTOMATED)2019-08-29 03:53:00 Test Item Value Reference Range Interpretation Comments POCT GLU (test code = 9093669442) 157 mg/dL 70-110 H Lab Interpretation (test code = Abnormal 89567-8) [facility] ABDOMEN LIMITED WITH [id number] 00:28:331. Slightly enlarged liver with increased and [...] Right renal cyst5. [facility]2019-08-28 22:47:00 Test Item Value Reference Range Interpretation Comments POCT GLU (test code = 5169208035) 139 mg/dL 70-110 H Lab Interpretation (test code = Abnormal 82539-1) [facility] 18:56:00 Test Item Value Reference Range Interpretation Comments POCT GLU (test code = 7580560442) 90 mg/dL 70-110 Lab Interpretation (test code = Normal 13107-2) [facility] METABOLIC PANEL (NA, K, CL, CO2, GLUCOSE, BUN, CREATININE, CA)2019-08-28 14:50:00 Test Item Value Reference Range Interpretation Comments NA (test code = 136 mmol/L 135-145 0736091316) K (test code = 4.1 mmol/L 3.5-5 9941394784) CL (test code = 105 mmol/L 98-108 1591545854) CO2 TOTAL (test code = 27 mmol/L 23-31 1810736852) AGAP (test code = 2-16 0741114772) BUN (test code = 26 mg/dL 7-23 H 6311377919) GLUCOSE (test code = 78 mg/dL 70-110 2786856650) CREATININE (test code = 1.06 mg/dL 0.6-1.25 1539285920) CALCIUM (test code = 7.5 mg/dL 8.6-10.6 L 2608523358) eGFR Calculation mL/min/1.73m2 (Non-) (test code = 1978585404) eGFR Calculation mL/min/1.73m2 () (test code = 9069224633) JUAN LUIS (test code = JUAN LUIS) [...] tests). Lab Interpretation Abnormal (test code = 59668-0) [facility] 14[facility]:00 Test Item Value Reference Range Interpretation Comments MAGNESIUM (test code = 5389009334) 2.3 mg/dL 1.7-2.4 Lab Interpretation (test code = Normal 08800-5) [facility] WITH [id number] 14:45:00 Test Item Value Reference Range Interpretation Comments WBC (test code = See_Comment [Automated 6690-2) message] The sy stem which generated this result transmitted reference range : 4.20 - 10.70 10*3/?L. The reference range was not used to interpret this result as normal/abnormal . RBC (test code = See_Comment L [Automated 489-8) message] The sy stem which generated this [...] (test code = 35.3 fL 38.5-51.6 L 31899-4) RDW-CV (test code = 14.6 % 12.1-15.4 788-0) PLT (test code = See_Comment [Automated 777-3) message] The sy stem which generated this result transmitted reference range : 150 - 328 10*3/ ?L. The reference r christine was not used to interpret this result as normal/abnormal . MPV (test code = 10.9 fL 9.8-13 26340-0) NRBC/100 WBC (test See_Comment [Automat ed code = 2627175447) message] The system which generated this result transmitted reference range : 0.0 - 10.0 /100 WBCs. The refer ence range was not u sed to interpret th is result as normal/abnormal . NRBC x10^3 (test code <0.01 See_Comment [Auto mated = 9008828014) message] The s ystem which generated this result transmitted reference range : 10*3/?L. The reference range was not used to interpret this result as normal/abnormal . GRAN MAT (NEUT) % 63.4 % (test code = 770-8) IMM GRAN % (test code 0.50 % = 7102533022) LYMPH % (test code = 21.1 % 736-9) MONO % (test code = 10.4 % 5905-5) EOS % (test code = 4.1 % 713-8) BASO % (test code = 0.5 % 706-2) GRAN MAT x10^3(ANC) 4.14 10*3/uL 1.99-6.95 (test code = 5623251491) IMM GRAN x10^3 (test 0.03 10*3/uL 0-0.06 code = 7064347609) LYMPH x10^3 (test code 1.38 10*3/uL 1.09-3.23 = 731-0) MONO x10^3 (test code 0.68 10*3/uL 0.36-1.02 = 742-7) EOS x10^3 (test code = 0.27 10*3/uL 0.06-0.53 711-2) BASO x10^3 (test code 0.03 10*3/uL 0.01-0.09 = 704-7) Lab Interpretation Abnormal (test code = 38263-3) [facility] GLUCOSE (AUTOMATED)2019-08-28 14:07:00 Test Item Value Reference Range Interpretation Comments POCT GLU (test code = 3370212575) 134 mg/dL 70-110 H Lab Interpretation (test code = Abnormal 99289-2) [facility] GLUCOSE (AUTOMATED)2019-08-28 07:20:00 Test Item Value Reference Range Interpretation Comments POCT GLU (test code = 6077146891) 144 mg/dL 70-110 H Lab Interpretation (test code = Abnormal 06258-8) [facility] GLUCOSE (AUTOMATED)2019-08-28 03:13:00 Test Item Value Reference Range Interpretation Comments POCT GLU (test code = 4744440000) 203 mg/dL 70-110 H Lab Interpretation (test code = Abnormal 73796-4) [facility] GLUCOSE (AUTOMATED)2019-08-27 22:32:00 Test Item Value Reference Range Interpretation Comments POCT GLU (test code = 3798750222) 96 mg/dL 70-110 Lab Interpretation (test code = Normal 85226-2) [facility] THORAX WO [id number] 18:39:06 Bilateral diffuse interlobular septal thickening, bilateral [...] for increased pulmonaryarterial pressure, echocardiographic evaluation is recommended.[facility]2019-08-27 17:57:00 Test Item Value Reference Range Interpretation Comments POCT GLU (test code = 7917363045) 155 mg/dL 70-110 H Lab Interpretation (test code = Abnormal 80862-9) [facility] GLUCOSE (AUTOMATED)2019-08-27 14:13:00 Test Item Value Reference Range Interpretation Comments POCT GLU (test code = 1920432722) 151 mg/dL 70-110 H Lab Interpretation (test code = Abnormal 61141-2) [facility] GLUCOSE (AUTOMATED)2019-08-27 10:41:00 Test Item Value Reference Range Interpretation Comments POCT GLU (test code = 212 mg/dL 70-110 H Notifi ed Provider [id number]) Lab Interpretation (test Abnormal code = 00079-4) [facility] GLUCOSE (AUTOMATED)2019-08-27 05:59:00 Test Item Value Reference Range Interpretation Comments POCT GLU (test code = 160 mg/dL 70-110 H Notifi ed Provider 4476357076) Lab Interpretation (test Abnormal code = 75930-4) [facility] GLUCOSE (AUTOMATED)2019-08-27 04:13:00 Test Item Value Reference Range Interpretation Comments POCT GLU (test code = 9635819166) 112 mg/dL 70-110 H Lab Interpretation (test code = Abnormal 72433-4) [facility] GLUCOSE (AUTOMATED)2019-08-27 02:40:00 Test Item Value Reference Range Interpretation Comments POCT GLU (test code = 184 mg/dL 70-110 H Notifi ed Provider [id number]) Lab Interpretation (test Abnormal code = 29118-2) [facility] GLUCOSE (AUTOMATED)2019-08-26 23:44:00 Test Item Value Reference Range Interpretation Comments POCT GLU (test code = 6883225227) 263 mg/dL 70-110 H Lab Interpretation (test code = Abnormal 48559-9) [facility] GLUCOSE (AUTOMATED)2019-08-26 23:02:00 Test Item Value Reference Range Interpretation Comments POCT GLU (test code = 4118255987) 246 mg/dL 70-110 H Lab Interpretation (test code = Abnormal 46883-1) [facility] Arterial Blood Gas.2019-08-26 20:26:00 Test Item Value Reference Range Interpretation Comments PH (test code = 2) 7.35-7.45 H PCO2 (test code = See_Comment [Automat ed message] 1648936757) The system [employer] generated this result transmitted ref erence range: 35 - 45 mmHg. The reference r christine was not used to interpret this result as normal/abnor mal. PO2 (test code = See_Comment LL [Automated message] 7552148351) The system [employer] generated this result transmitted ref erence range: 80 - 100 mmHg. The reference r christine was not used to interpret this result as normal/abnor mal. HCO3 (test code = See_Comment H [Automate d message] 1226212817) The system [employer] generated this result transmitted ref erence range: 22 - 26 mEq/L. The reference r christine was not used to interpret this result as normal/abnor mal. BE (test code = See_Comment H [Automated message] 6492630021) The system [employer] generated this result transmitted ref erence range: -3.0 - 3 .0 mEq/L. The refe rence range was not u sed to interpret this result as normal/abnor mal. Lab Interpretation (test Abnormal code = 41666-4) [facility] GLUCOSE (AUTOMATED)2019-08-26 18:12:00 Test Item Value Reference Range Interpretation Comments POCT GLU (test code = 2857959663) 172 mg/dL 70-110 H Lab Interpretation (test code = Abnormal 24307-9) [facility] GLUCOSE (AUTOMATED)2019-08-26 15:33:00 Test Item Value Reference Range Interpretation Comments POCT GLU (test code = 5122276335) 86 mg/dL 70-110 Lab Interpretation (test code = Normal 06207-7) [facility] GLUCOSE (AUTOMATED)2019-08-26 11:57:00 Test Item Value Reference Range Interpretation Comments POCT GLU (test code = 6218407663) 86 mg/dL 70-110 Lab Interpretation (test code = Normal 51586-9) [facility] GLUCOSE (AUTOMATED)2019-08-25 21:38:00 Test Item Value Reference Range Interpretation Comments POCT GLU (test code = 7142138788) 89 mg/dL 70-110 Lab Interpretation (test code = Normal 04367-2) [facility] GLUCOSE (AUTOMATED)2019-08-25 20:46:00 Test Item Value Reference Range Interpretation Comments POCT GLU (test code = 9438248624) 75 mg/dL 70-110 Lab Interpretation (test code = Normal 48995-5) [facility] GLUCOSE (AUTOMATED)2019-08-25 20:46:00 Test Item Value Reference Range Interpretation Comments POCT GLU (test code = 7816966310) 76 mg/dL 70-110 Lab Interpretation (test code = Normal 08678-1) [facility] GLUCOSE (AUTOMATED)2019-08-25 20:12:00 Test Item Value Reference Range Interpretation Comments POCT GLU (test code = 3160537715) 83 mg/dL 70-110 Lab Interpretation (test code = Normal 99751-8) [facility] GLUCOSE (AUTOMATED)2019-08-25 19:45:00 Test Item Value Reference Range Interpretation Comments POCT GLU (test code = 6272637495) 96 mg/dL 70-110 Lab Interpretation (test code = Normal 94081-4) [facility] 19:02:00 Test Item Value Reference Range Interpretation Comments POCT GLU (test code = 3876421281) 87 mg/dL 70-110 Lab Interpretation (test code = Normal 50277-2) [facility] GLUCOSE (AUTOMATED)2019-08-25 19:02:00 Test Item Value Reference Range Interpretation Comments POCT GLU (test code = 1987256823) 78 mg/dL 70-110 Lab Interpretation (test code = Normal 78055-9) [facility] GLUCOSE (AUTOMATED)2019-08-25 18:28:00 Test Item Value Reference Range Interpretation Comments POCT GLU (test code = 5641857749) 42 mg/dL 70-110 LL Lab Interpretation (test code = Abnormal 49756-0) [facility] GLUCOSE (AUTOMATED)2019-08-25 18:28:00 Test Item Value Reference Range Interpretation Comments POCT GLU (test code = 6743630285) 44 mg/dL 70-110 LL Lab Interpretation (test code = Abnormal 96647-4) [facility] GLUCOSE (AUTOMATED)2019-08-25 18:28:00 Test Item Value Reference Range Interpretation Comments POCT GLU (test code = 5123391816) 77 mg/dL 70-110 Lab Interpretation (test code = Normal 53953-8) [facility] GLUCOSE (AUTOMATED)2019-08-25 18:28:00 Test Item Value Reference Range Interpretation Comments POCT GLU (test code = 1028360951) 110 mg/dL 70-110 Lab Interpretation (test code = Normal 16790-9) [facility] METABOLIC PANEL (NA, K, CL, CO2, GLUCOSE, BUN, CREATININE, CA)2019-08-25 10:57:00 Test Item Value Reference Range Interpretation Comments NA (test code = 136 mmol/L 135-145 7382571293) K (test code = 4.5 mmol/L 3.5-5 3356232926) CL (test code = 100 mmol/L 98-108 1001353294) CO2 TOTAL (test code = 30 mmol/L 23-31 6597441745) AGAP (test code = 2-16 2899496972) BUN (test code = 38 mg/dL 7-23 H 1659434550) GLUCOSE (test code = 89 mg/dL 70-110 7171760535) CREATININE (test code = 1.46 mg/dL 0.6-1.25 H 2961237920) CALCIUM (test code = 7.7 mg/dL 8.6-10.6 L 6044316706) eGFR Calculation mL/min/1.73m2 (Non-) (test code = 4744949692) eGFR Calculation mL/min/1.73m2 () (test code = 5404935529) JUAN LUIS (test code = JUAN LUIS) [...] tests). Lab Interpretation Abnormal (test code = 18121-2) [facility] WITH [id number] 10:46:00 Test Item Value Reference Range Interpretation Comments WBC (test code = See_Comment [Automated 7460-2) message] The sy stem which generated this result transmitted reference range : 4.20 - 10.70 10*3/?L. The reference range was not used to interpret this result as normal/abnormal . RBC (test code = See_Comment L [Automated 118-8) message] The sy stem which generated this [...] (test code = 34.5 fL 38.5-51.6 L 87726-2) RDW-CV (test code = 14.7 % 12.1-15.4 788-0) PLT (test code = See_Comment [Automated 777-3) message] The sy stem which generated this result transmitted reference range : 150 - 328 10*3/ ?L. The reference r christine was not used to interpret this result as normal/abnormal . MPV (test code = 11.7 fL 9.8-13 50615-9) NRBC/100 WBC (test See_Comment [Automat ed code = 9741042741) message] The system which generated this result transmitted reference range : 0.0 - 10.0 /100 WBCs. The refer ence range was not u sed to interpret th is result as normal/abnormal . NRBC x10^3 (test code <0.01 See_Comment [Auto mated = 5041850239) message] The s ystem which generated this result transmitted reference range : 10*3/?L. The reference range was not used to interpret this result as normal/abnormal . GRAN MAT (NEUT) % 63.6 % (test code = 770-8) IMM GRAN % (test code 0.30 % = 5348191369) LYMPH % (test code = 19.7 % 736-9) MONO % (test code = 12.6 % 5905-5) EOS % (test code = 3.5 % 713-8) BASO % (test code = 0.3 % 706-2) GRAN MAT x10^3(ANC) 5.60 10*3/uL 1.99-6.95 (test code = 4411274333) IMM GRAN x10^3 (test 0.03 10*3/uL 0-0.06 code = 4025052517) LYMPH x10^3 (test code 1.74 10*3/uL 1.09-3.23 = 731-0) MONO x10^3 (test code 1.11 10*3/uL 0.36-1.02 H = 742-7) EOS x10^3 (test code = 0.31 10*3/uL 0.06-0.53 711-2) BASO x10^3 (test code 0.03 10*3/uL 0.01-0.09 = 704-7) Lab Interpretation Abnormal (test code = 33855-9) [facility] [id number] 05:01:32Tip of the nasogastric tube is in [...] of the [facility]ogastric tube is [facility] (AUT[facility]ATED)2019-08-25 02:05:00 Test Item Value Reference Range Interpretation Comments POCT GLU (test code = 75 mg/dL 70-110 Notifi ed Provider 3151470085) Lab Interpretation (test Normal code = 47565-8) [facility] 22:24:00 Test Item Value Reference Range Interpretation Comments POCT GLU (test code = 4991699390) 134 mg/dL 70-110 H Lab Interpretation (test code = Abnormal 74715-1) [facility] GLUCOSE (AUTOMATED)2019-08-24 18:27:00 Test Item Value Reference Range Interpretation Comments POCT GLU (test code = 2249739508) 137 mg/dL 70-110 H Lab Interpretation (test code = Abnormal 54814-6) [facility] 14:05:00 Test Item Value Reference Range Interpretation Comments POCT GLU (test code = 0428391579) 178 mg/dL 70-110 H Lab Interpretation (test code = Abnormal 18138-8) [facility] METABOLIC PANEL (NA, K, CL, CO2, GLUCOSE, BUN, CREATININE, CA)2019-08-24 12:33:00 Test Item Value Reference Range Interpretation Comments NA (test code = 133 mmol/L 135-145 L 3610315168) K (test code = 4.3 mmol/L 3.5-5 0734893695) CL (test code = 98 mmol/L 98-108 2833236378) CO2 TOTAL (test code = 28 mmol/L 23-31 4006467824) AGAP (test code = 2-16 6303858359) BUN (test code = 39 mg/dL 7-23 H 8500290732) GLUCOSE (test code = 122 mg/dL 70-110 H 1035574524) CREATININE (test code = 1.51 mg/dL 0.6-1.25 H 8972511298) CALCIUM (test code = 7.8 mg/dL 8.6-10.6 L 3489061976) eGFR Calculation mL/min/1.73m2 (Non-) (test code = 6122824986) eGFR Calculation mL/min/1.73m2 () (test code = 5500276065) JUAN LUIS (test code = JUAN LUIS) [...] tests). Lab Interpretation Abnormal (test code = 03940-8) [facility] WITH [id number] 12:27:00 Test Item Value Reference Range Interpretation Comments WBC (test code = See_Comment [Automated 6990-2) message] The sy stem which generated this [...] (test code = 34.7 fL 38.5-51.6 L 17846-5) RDW-CV (test code = 15.0 % 12.1-15.4 788-0) PLT (test code = See_Comment [Automated 847-3) message] The sy stem which generated this result transmitted reference range : 150 - 328 10*3/ ?L. The reference r christine was not used to interpret this result as normal/abnormal . MPV (test code = 11.3 fL 9.8-13 42675-0) IPF % (test code = 4.1 % 1.2-10.7 Platelet count 9064216809) measured by fluorescence method. NRBC/100 WBC (test See_Comment [Automat ed code = 2317930823) message] The system which generated this result transmitted reference range : 0.0 - 10.0 /100 WBCs. The refer ence range was not u sed to interpret th is result as normal/abnormal . NRBC x10^3 (test code <0.01 See_Comment [Auto mated = 2753428268) message] The s ystem which generated this result transmitted reference range : 10*3/?L. The reference range was not used to interpret this result as normal/abnormal . GRAN MAT (NEUT) % 71.8 % (test code = 770-8) IMM GRAN % (test code 0.40 % = 5774451323) LYMPH % (test code = 13.7 % 736-9) MONO % (test code = 11.2 % 5905-5) EOS % (test code = 2.6 % 713-8) BASO % (test code = 0.3 % 706-2) GRAN MAT x10^3(ANC) 6.76 10*3/uL 1.99-6.95 (test code = 1625819645) IMM GRAN x10^3 (test 0.04 10*3/uL 0-0.06 code = 8000353630) LYMPH x10^3 (test code 1.29 10*3/uL 1.09-3.23 = 731-0) MONO x10^3 (test code 1.05 10*3/uL 0.36-1.02 H = 742-7) EOS x10^3 (test code = 0.24 10*3/uL 0.06-0.53 711-2) BASO x10^3 (test code 0.03 10*3/uL 0.01-0.09 = 704-7) Lab Interpretation Abnormal (test code = 28041-3) [facility] GLUCOSE (AUTOMATED)2019-08-24 10:30:00 Test Item Value Reference Range Interpretation Comments POCT GLU (test code = 6209146897) 176 mg/dL 70-110 H Lab Interpretation (test code = Abnormal 13606-0) [facility] GLUCOSE (AUTOMATED)2019-08-24 05:45:00 Test Item Value Reference Range Interpretation Comments POCT GLU (test code = 7671640618) 187 mg/dL 70-110 H Lab Interpretation (test code = Abnormal 09946-5) [facility] GLUCOSE (AUTOMATED)2019-08-24 01:54:00 Test Item Value Reference Range Interpretation Comments POCT GLU (test code = 9373323762) 156 mg/dL 70-110 H Lab Interpretation (test code = Abnormal 92041-2) [facility] GLUCOSE (AUTOMATED)2019-08-23 23:09:00 Test Item Value Reference Range Interpretation Comments POCT GLU (test code = 8346458728) 110 mg/dL 70-110 Lab Interpretation (test code = Normal 24414-8) [facility] [id number] 22:07:00 Test Item Value Reference Range Interpretation Comments TIBC (test code = 6094620426) 230 ug/dL 250-410 L % FE SAT (test code = 0951078740) 15 % 20-50 L Lab Interpretation (test code = Abnormal 83880-5) [facility] 21:58:00 Test Item Value Reference Range Interpretation Comments IRON (test code = 6815162962) 35 ug/dL 50-160 L Lab Interpretation (test code = Abnormal 11087-6) [facility] GLUCOSE (AUTOMATED)2019-08-23 18:08:00 Test Item Value Reference Range Interpretation Comments POCT GLU (test code = 8592366576) 78 mg/dL 70-110 Lab Interpretation (test code = Normal 92243-6) [facility] GLUCOSE (AUTOMATED)2019-08-23 14:32:00 Test Item Value Reference Range Interpretation Comments POCT GLU (test code = 5132189780) 126 mg/dL 70-110 H Lab Interpretation (test code = Abnormal 43679-4) [facility] GLUCOSE (AUTOMATED)2019-08-23 11:58:00 Test Item Value Reference Range Interpretation Comments POCT GLU (test code = 105 mg/dL 70-110 Notifi ed Provider [id number]) Lab Interpretation (test Normal code = 17117-6) [facility] [id number] 11:01:00 Test Item Value Reference Range Interpretation Comments NT-proBNP (test code 7950 pg/mL See_Comment H [Autom ated = 3982425482) message] The system which generated this result transmitted reference range : <=125. The reference range was not used to interpret this result as normal/abnormal . JUAN LUIS (test code = JUAN LUIS) Biotin has been reported to cause a negative bias, interpret results relative to patient's use of biotin. Lab Interpretation Abnormal (test code = 33039-0) [facility] (NA, K, CL, CO2, GLUCOSE, BUN, CREATININE, CA)2019-08-23 10:52:00 Test Item Value Reference Range Interpretation Comments NA (test code = 135 mmol/L 135-145 2955537400) K (test code = 4.5 mmol/L 3.5-5 3494085884) CL (test code = 101 mmol/L 98-108 7276338656) CO2 TOTAL (test code = 29 mmol/L 23-31 6873570236) AGAP (test code = 2-16 4406050040) BUN (test code = 36 mg/dL 7-23 H 2286443070) GLUCOSE (test code = 57 mg/dL 70-110 L 3181222923) CREATININE (test code = 1.61 mg/dL 0.6-1.25 H 6269951350) CALCIUM (test code = 7.8 mg/dL 8.6-10.6 L 0512301179) eGFR Calculation mL/min/1.73m2 (Non-) (test code = 2698263573) eGFR Calculation mL/min/1.73m2 () (test code = 4350709313) JUAN LUIS (test code = JUAN LUIS) [...] tests). Lab Interpretation Abnormal (test code = 03728-9) [facility]2020-[facility]-09 10:52:00 Test Item Value Reference Range Interpretation Comments MAGNESIUM (test code = 7271160136) 1.9 mg/dL 1.7-2.4 Lab Interpretation (test code = Normal 14179-2) [facility] WITH [id number] 10:48:00 Test Item Value Reference Range Interpretation Comments WBC (test code = See_Comment [Automated 6890-2) message] The sy stem which generated this result transmitted reference range : 4.20 - 10.70 10*3/?L. The reference range was not used to interpret this result as normal/abnormal . RBC (test code = See_Comment L [Automated 819-8) message] The sy stem which generated this [...] (test code = 34.9 fL 38.5-51.6 L 00745-3) RDW-CV (test code = 14.8 % 12.1-15.4 788-0) PLT (test code = See_Comment [Automated 777-3) message] The sy stem which generated this result transmitted reference range : 150 - 328 10*3/ ?L. The reference r christine was not used to interpret this result as normal/abnormal . MPV (test code = 11.8 fL 9.8-13 30573-2) IPF % (test code = 3.8 % 1.2-10.7 Platelet count 4148097459) measured by fluorescence method. NRBC/100 WBC (test See_Comment [Automat ed code = 7723397728) message] The system which generated this result transmitted reference range : 0.0 - 10.0 /100 WBCs. The refer ence range was not u sed to interpret th is result as normal/abnormal . NRBC x10^3 (test code <0.01 See_Comment [Auto mated = 6761312620) message] The s ystem which generated this result transmitted reference range : 10*3/?L. The reference range was not used to interpret this result as normal/abnormal . GRAN MAT (NEUT) % 70.8 % (test code = 770-8) IMM GRAN % (test code 0.30 % = 8591096535) LYMPH % (test code = 13.9 % 736-9) MONO % (test code = 10.9 % 5905-5) EOS % (test code = 3.7 % 713-8) BASO % (test code = 0.4 % 706-2) GRAN MAT x10^3(ANC) 6.76 10*3/uL 1.99-6.95 (test code = 7882834283) IMM GRAN x10^3 (test 0.03 10*3/uL 0-0.06 code = 2111024721) LYMPH x10^3 (test code 1.33 10*3/uL 1.09-3.23 = 731-0) MONO x10^3 (test code 1.04 10*3/uL 0.36-1.02 H = 742-7) EOS x10^3 (test code = 0.35 10*3/uL 0.06-0.53 711-2) BASO x10^3 (test code 0.04 10*3/uL 0.01-0.09 = 704-7) Lab Interpretation Abnormal (test code = 63152-0) [facility] GLUCOSE (AUTOMATED)2019-08-23 06:29:00 Test Item Value Reference Range Interpretation Comments POCT GLU (test code = 116 mg/dL 70-110 H Notifi ed Provider [id number]) Lab Interpretation (test Abnormal code = 39284-1) [facility] GLUCOSE (AUTOMATED)2019-08-23 01:54:00 Test Item Value Reference Range Interpretation Comments POCT GLU (test code = 135 mg/dL 70-110 H Notifi ed Provider [id number]) Lab Interpretation (test Abnormal code = 36502-3) [facility] GLUCOSE (AUTOMATED)2019-08-22 23:32:00 Test Item Value Reference Range Interpretation Comments POCT GLU (test code = 5522836361) 109 mg/dL 70-110 Lab Interpretation (test code = Normal 59948-6) [facility] MSSA Screen by Britney [id number] 17:55:00 Test Item Value Reference Range Interpretation Comments MSSA Screen by Britney MTZ (test code Negative Negative = 91677-1) MRSA/MSSA Positive? (test code = No No 5587285049) Lab Interpretation (test code = Normal 25823-8) [facility] GLUCOSE (AUTOMATED)2019-08-22 17:43:00 Test Item Value Reference Range Interpretation Comments POCT GLU (test code = 8009766687) 139 mg/dL 70-110 H Lab Interpretation (test code = Abnormal 31340-8) [facility] [id number] 16:53:00 Test Item Value Reference Range Interpretation Comments NT-proBNP (test code 13393 pg/mL See_Comment H [Autom ated = 2268266102) message] The system which generated this result transmitted reference range : <=125. The reference range was not used to interpret this result as normal/abnormal . JUAN LUIS (test code = JUAN LUIS) Biotin has been reported to cause a negative bias, interpret results relative to patient's use of biotin. Lab Interpretation Abnormal (test code = 25549-7) [facility]AllenXR CHEST 1 [id number] 10:34:46Edema type pattern. CLINICAL HISTORY:SOB COMPARISON:None TECHNIQUE:Portable [...] zone. No pneumothorax. Possiblesmall effusions.IMPRESSIONEdema type pattern. [facility]2019-08-22 10:03:00 Test Item Value Reference Range Interpretation Comments POCT GLU (test code = 118 mg/dL 70-110 H Notifi ed Provider [id number]) Lab Interpretation (test Abnormal code = 84002-0) [facility] (NA, K, CL, CO2, GLUCOSE, BUN, CREATININE, CA)2019-08-22 08:20:00 Test Item Value Reference Range Interpretation Comments NA (test code = 136 mmol/L 135-145 8628693046) K (test code = 4.8 mmol/L 3.5-5 3302092967) CL (test code = 102 mmol/L 98-108 6387914751) CO2 TOTAL (test code = 30 mmol/L 23-31 2350731758) AGAP (test code = 2-16 0773296249) BUN (test code = 34 mg/dL 7-23 H 0190970001) GLUCOSE (test code = 67 mg/dL 70-110 L 9156851591) CREATININE (test code = 1.37 mg/dL 0.6-1.25 H 4504489879) CALCIUM (test code = 8.4 mg/dL 8.6-10.6 L 2169052991) eGFR Calculation mL/min/1.73m2 (Non-) (test code = 6194140964) eGFR Calculation mL/min/1.73m2 () (test code = 6940469766) JUAN LUIS (test code = JUAN LUIS) [...] tests). Lab Interpretation Abnormal (test code = 04525-1) [facility] Test Item Value Reference Range Interpretation Comments MAGNESIUM (test code = 7985773289) 2.0 mg/dL 1.7-2.4 Lab Interpretation (test code = Normal 93940-4) [facility] WITH [id number] 08:11:00 Test Item Value Reference Range Interpretation [...] (test code = 35.3 fL 38.5-51.6 L 06291-5) RDW-CV (test code = 15.1 % 12.1-15.4 788-0) PLT (test code = See_Comment [Automated 777-3) message] The sy stem which generated this result transmitted reference range : 150 - 328 10*3/ ?L. The reference r christine was not used to interpret this result as normal/abnormal . MPV (test code = 11.5 fL 9.8-13 66789-5) IPF % (test code = 4.2 % 1.2-10.7 Platelet count 1972206874) measured by fluorescence method. NRBC/100 WBC (test See_Comment [Automat ed code = 6557274879) message] The system which generated this result transmitted reference range : 0.0 - 10.0 /100 WBCs. The refer ence range was not u sed to interpret th is result as normal/abnormal . NRBC x10^3 (test code <0.01 See_Comment [Auto mated = 7638151378) message] The s ystem which generated this result transmitted reference range : 10*3/?L. The reference range was not used to interpret this result as normal/abnormal . GRAN MAT (NEUT) % 68.5 % (test code = 770-8) IMM GRAN % (test code 0.40 % = 2792494339) LYMPH % (test code = 18.7 % 736-9) MONO % (test code = 8.8 % 5905-5) EOS % (test code = 3.0 % 713-8) BASO % (test code = 0.6 % 706-2) GRAN MAT x10^3(ANC) 5.42 10*3/uL 1.99-6.95 (test code = 8647264004) IMM GRAN x10^3 (test 0.03 10*3/uL 0-0.06 code = 8734250975) LYMPH x10^3 (test code 1.48 10*3/uL 1.09-3.23 = 731-0) MONO x10^3 (test code 0.70 10*3/uL 0.36-1.02 = 742-7) EOS x10^3 (test code = 0.24 10*3/uL 0.06-0.53 711-2) BASO x10^3 (test code 0.05 10*3/uL 0.01-0.09 = 704-7) Lab Interpretation Abnormal (test code = 82690-5) [facility] GLUCOSE (AUTOMATED)2019-08-22 06:25:00 Test Item Value Reference Range Interpretation Comments POCT GLU (test code = 253 mg/dL 70-110 H Notifi ed Provider [id number]) Lab Interpretation (test Abnormal code = 03624-6) [facility] GLUCOSE (AUTOMATED)2019-08-22 03:19:00 Test Item Value Reference Range Interpretation Comments POCT GLU (test code = 279 mg/dL 70-110 H Notifi ed Provider [id number]) Lab Interpretation (test Abnormal code = 20040-6) [facility] GLUCOSE (AUTOMATED)2019-08-21 22:45:00 Test Item Value Reference Range Interpretation Comments POCT GLU (test code = 7888926294) 231 mg/dL 70-110 H Lab Interpretation (test code = Abnormal 56921-7) [facility] GLUCOSE (AUTOMATED)2019-08-21 18:32:00 Test Item Value Reference Range Interpretation Comments POCT GLU (test code = 7982873518) 144 mg/dL 70-110 H Lab Interpretation (test code = Abnormal 01525-5) [facility] GLUCOSE (AUTOMATED)2019-08-21 13:56:00 Test Item Value Reference Range Interpretation Comments POCT GLU (test code = 3914665656) 123 mg/dL 70-110 H Lab Interpretation (test code = Abnormal 87043-6) [facility] GLUCOSE (AUTOMATED)2019-08-21 10:04:00 Test Item Value Reference Range Interpretation Comments POCT GLU (test code = 111 mg/dL 70-110 H Notifi ed Provider [id number]) Lab Interpretation (test Abnormal code = 54809-9) [facility] [id number] 08:37:00 Test Item Value Reference Range Interpretation Comments NT-proBNP (test code 90221 pg/mL See_Comment H [Autom ated = 2558151992) message] The system which generated this result transmitted reference range : <=125. The reference range was not used to interpret this result as normal/abnormal . JUAN LUIS (test code = JUAN LUIS) Biotin has been reported to cause a negative bias, interpret results relative to patient's use of biotin. Lab Interpretation Abnormal (test code = 63907-3) [facility] Metabolic Panel (NA, K, CL, CO2, GLUCOSE, BUN, CREATININE, CA)2019-08-21 08:28:00 Test Item Value Reference Range Interpretation Comments NA (test code = 136 mmol/L 135-145 5944047825) K (test code = 5.0 mmol/L 3.5-5 9413134404) CL (test code = 102 mmol/L 98-108 8449812157) CO2 TOTAL (test code = 30 mmol/L 23-31 2966516641) AGAP (test code = 2-16 3901601652) BUN (test code = 37 mg/dL 7-23 H 9576423810) GLUCOSE (test code = 88 mg/dL 70-110 3281096217) CREATININE (test code = 1.44 mg/dL 0.6-1.25 H 8604088803) CALCIUM (test code = 8.2 mg/dL 8.6-10.6 L 1859524251) eGFR Calculation mL/min/1.73m2 (Non-) (test code = 3118375177) eGFR Calculation mL/min/1.73m2 () (test code = 1777791173) JUAN LUIS (test code = JUAN LUIS) [...] tests). Lab Interpretation Abnormal (test code = 03183-3) [facility] WITH [id number] 08:17:00 Test Item Value Reference Range Interpretation Comments WBC (test code = See_Comment [Automated 7048-2) message] The sy stem which generated this [...] (test code = 35.3 fL 38.5-51.6 L 16190-2) RDW-CV (test code = 15.2 % 12.1-15.4 788-0) PLT (test code = See_Comment [Automated 777-3) message] The sy stem which generated this result transmitted reference range : 150 - 328 10*3/ ?L. The reference r christine was not used to interpret this result as normal/abnormal . MPV (test code = 12.2 fL 9.8-13 30830-5) IPF % (test code = 4.9 % 1.2-10.7 Platelet count 2874870188) measured by fluorescence method. NRBC/100 WBC (test See_Comment [Automat ed code = 1139461879) message] The system which generated this result transmitted reference range : 0.0 - 10.0 /100 WBCs. The refer ence range was not u sed to interpret th is result as normal/abnormal . NRBC x10^3 (test code <0.01 See_Comment [Auto mated = 2915630759) message] The s ystem which generated this result transmitted reference range : 10*3/?L. The reference range was not used to interpret this result as normal/abnormal . GRAN MAT (NEUT) % 78.7 % (test code = 770-8) IMM GRAN % (test code 0.40 % = 7075547005) LYMPH % (test code = 11.4 % 736-9) MONO % (test code = 8.1 % 5905-5) EOS % (test code = 0.9 % 713-8) BASO % (test code = 0.5 % 706-2) GRAN MAT x10^3(ANC) 8.31 10*3/uL 1.99-6.95 H (test code = 1918430954) IMM GRAN x10^3 (test 0.04 10*3/uL 0-0.06 code = 0616604224) LYMPH x10^3 (test code 1.20 10*3/uL 1.09-3.23 = 731-0) MONO x10^3 (test code 0.85 10*3/uL 0.36-1.02 = 742-7) EOS x10^3 (test code = 0.09 10*3/uL 0.06-0.53 711-2) BASO x10^3 (test code 0.05 10*3/uL 0.01-0.09 = 704-7) Lab Interpretation Abnormal (test code = 77942-6) [facility] GLUCOSE (AUTOMATED)2019-08-21 05:13:00 Test Item Value Reference Range Interpretation Comments POCT GLU (test code = 7917102958) 87 mg/dL 70-110 Lab Interpretation (test code = Normal 55190-2) [facility] GLUCOSE (AUTOMATED)2019-08-21 03:29:00 Test Item Value Reference Range Interpretation Comments POCT GLU (test code = 65 mg/dL 70-110 L Notifi ed Provider [id number]) Lab Interpretation (test Abnormal code = 56578-8) [facility] GLUCOSE (AUTOMATED)2019-08-20 22:42:00 Test Item Value Reference Range Interpretation Comments POCT GLU (test code = 9376452679) 102 mg/dL 70-110 Lab Interpretation (test code = Normal 84280-2) [facility]IT[facility], [id number] 22:11:00 Test Item Value Reference Range Interpretation Comments VIT D 25OH (test code = <13 25-80 L 38416-9) JUAN LUIS (test code = JUAN LUIS) Deficiency: <20 ng/mLInsufficiency: 20-24 ng/mLOptimal: 25-80 ng/mL Lab Interpretation (test Abnormal code = 36340-4) [facility] GLUCOSE (AUTOMATED)2019-08-20 17:49:00 Test Item Value Reference Range Interpretation Comments POCT GLU (test code = 8366426604) 112 mg/dL 70-110 H Lab Interpretation (test code = Abnormal 79530-2) [facility] GLUCOSE (AUTOMATED)2019-08-20 14:23:00 Test Item Value Reference Range Interpretation Comments POCT GLU (test code = 2331638758) 122 mg/dL 70-110 H Lab Interpretation (test code = Abnormal 35429-5) [facility]AllenTROPONIN [id number] 11:09:00 Test Item Value Reference Range Interpretation Comments TROPONIN I (test 0.032 ng/mL See_Comment [Automated code = 3937933988) message] The system which generated this result [...] ? Lab Interpretation Normal (test code = 75105-9) [facility] [id number] 11:06:00 Test Item Value Reference Range Interpretation Comments NT-proBNP (test code 66873 pg/mL See_Comment H [Autom ated = 8916786555) message] The system which generated this result transmitted reference range : <=125. The reference range was not used to interpret this result as normal/abnormal . JUAN LUIS (test code = JUAN LUIS) Biotin has been reported to cause a negative bias, interpret results relative to patient's use of biotin. Lab Interpretation Abnormal (test code = 31290-0) [facility]AllenURIC [id number] 10:58:00 Test Item Value Reference Range Interpretation Comments URIC ACID (test code = 0895357332) 5.7 mg/dL 3.6-8 Lab Interpretation (test code = Normal 70140-8) [facility] (NA, K, CL, CO2, GLUCOSE, BUN, CREATININE, CA)2019-08-20 10:58:00 Test Item Value Reference Range Interpretation Comments NA (test code = 136 mmol/L 135-145 5544134847) K (test code = 4.0 mmol/L 3.5-5 8176200221) CL (test code = 106 mmol/L 98-108 0912994225) CO2 TOTAL (test code = 27 mmol/L 23-31 6333599709) AGAP (test code = 2-16 9154408090) BUN (test code = 35 mg/dL 7-23 H 0798317014) GLUCOSE (test code = 149 mg/dL 70-110 H 4019830505) CREATININE (test code = 1.46 mg/dL 0.6-1.25 H 0836044409) CALCIUM (test code = 8.5 mg/dL 8.6-10.6 L 3885771500) eGFR Calculation mL/min/1.73m2 (Non-) (test code = 5135806237) eGFR Calculation mL/min/1.73m2 () (test code = 1657748055) JUAN LUIS (test code = JUAN LUIS) [...] tests). Lab Interpretation Abnormal (test code = 95854-6) [facility] WITH [id number] 10:46:00 Test Item Value Reference Range Interpretation Comments WBC (test code = See_Comment [Automated 3490-2) message] The sy stem which generated this [...] (test code = 34.4 fL 38.5-51.6 L 65802-3) RDW-CV (test code = 15.2 % 12.1-15.4 788-0) PLT (test code = See_Comment [Automated 777-3) message] The sy stem which generated this result transmitted reference range : 150 - 328 10*3/ ?L. The reference r christine was not used to interpret this result as normal/abnormal . MPV (test code = Not Measure d 09218-6) IPF % (test code = 6.1 % 1.2-10.7 Platelet count 0689426341) measured by fluorescence method. NRBC/100 WBC (test See_Comment [Automat ed code = 0858036587) message] The system which generated this result transmitted reference range : 0.0 - 10.0 /100 WBCs. The refer ence range was not u sed to interpret th is result as normal/abnormal . NRBC x10^3 (test code <0.01 See_Comment [Auto mated = 1033651563) message] The s ystem which generated this result transmitted reference range : 10*3/?L. The reference range was not used to interpret this result as normal/abnormal . GRAN MAT (NEUT) % 66.8 % (test code = 770-8) IMM GRAN % (test code 0.30 % = 9364944486) LYMPH % (test code = 20.3 % 736-9) MONO % (test code = 9.9 % 5905-5) EOS % (test code = 2.3 % 713-8) BASO % (test code = 0.4 % 706-2) GRAN MAT x10^3(ANC) 6.15 10*3/uL 1.99-6.95 (test code = 4561341921) IMM GRAN x10^3 (test 0.03 10*3/uL 0-0.06 code = 7499584188) LYMPH x10^3 (test code 1.87 10*3/uL 1.09-3.23 = 731-0) MONO x10^3 (test code 0.91 10*3/uL 0.36-1.02 = 742-7) EOS x10^3 (test code = 0.21 10*3/uL 0.06-0.53 711-2) BASO x10^3 (test code 0.04 10*3/uL 0.01-0.09 = 704-7) Lab Interpretation Abnormal (test code = 63011-1) [facility] B12, [id number] 08:51:00 Test Item Value Reference Range Interpretation Comments VIT B12 (test code = 409 pg/mL 240-930 2365668552) JUAN LUIS (test code = JUAN LUIS) Biotin has been reported to cause a positive bias, interpret results relative to patient's use of biotin. Lab Interpretation (test Normal code = 86568-9) [facility]AllenFOLATE2020-02-06 08:51:00 Test Item Value Reference Range Interpretation Comments FOLATE SER (test code = 11.7 ng/mL 3-20 3525605631) Lab Interpretation (test code = Normal 88446-8) [facility]AllenPOWV GLUCOSE ([facility]OMATED)2019-08-20 05:51:00 Test Item Value Reference Range Interpretation Comments POCT GLU (test code = 5227460537) 239 mg/dL 70-110 H Lab Interpretation (test code = Abnormal 27866-1) [facility] GLUCOSE (AUTOMATED)2019-08-20 02:49:00 Test Item Value Reference Range Interpretation Comments POCT GLU (test code = 1254489500) 261 mg/dL 70-110 H Lab Interpretation (test code = Abnormal 53524-3) [facility]AllenIRON [id number] 23:44:00 Test Item Value Reference Range Interpretation Comments IRON (test code = 64 ug/dL 50-160 Slight hem olysis 2432298684) TIBC (test code = 225 ug/dL 250-410 L 7737827042) % FE SAT (test code = 28 % 20-50 6857095366) Lab Interpretation (test Abnormal code = 28405-1) [facility]AllenTroponin [id number] 23:42:00 Test Item Value Reference Range Interpretation Comments TROPONIN I (test 0.039 ng/mL See_Comment H [Automated code = 8674136972) message] The system which generated this result [...] ? Lab Interpretation Abnormal (test code = 72754-2) [facility]AllenFERRITIN [id number] 23:37:00 Test Item Value Reference Range Interpretation Comments FERRITIN (test code = 744.0 ng/mL 18-464 H 3968540931) JUAN LUIS (test code = JUAN LUIS) Biotin has been reported to cause a negative bias, interpret results relative to patient's use of biotin. Lab Interpretation (test Abnormal code = 40804-3) [facility] GLUCOSE (AUTOMATED)2019-08-19 21:51:00 Test Item Value Reference Range Interpretation Comments POCT GLU (test code = 6553114208) 235 mg/dL 70-110 H Lab Interpretation (test code = Abnormal 05288-9) [facility] GLUCOSE (AUTOMATED)2019-08-19 17:19:00 Test Item Value Reference Range Interpretation Comments POCT GLU (test code = 0867266370) 283 mg/dL 70-110 H Lab Interpretation (test code = Abnormal 61898-6) [facility] GLUCOSE (AUTOMATED)2019-08-19 13:57:00 Test Item Value Reference Range Interpretation Comments POCT GLU (test code = 6918714006) 165 mg/dL 70-110 H Lab Interpretation (test code = Abnormal 51006-8) [facility]AllenTROPONIN [id number] 11:05:00 Test Item Value Reference Range Interpretation Comments TROPONIN I (test 0.045 ng/mL See_Comment H [Automated code = 8982663279) message] The system which generated this result [...] ? Lab Interpretation Abnormal (test code = 52241-4) [facility] [id number] 11:04:00 Test Item Value Reference Range Interpretation Comments TROPONIN I (test 0.046 ng/mL See_Comment H [Automated code = 3577862109) message] The system which generated this result [...] ? Lab Interpretation Abnormal (test code = 55488-3) [facility]AL [id number] 11:02:00 Test Item Value Reference Range Interpretation Comments NT-proBNP (test code 50550 pg/mL See_Comment H [Autom ated = 9854030687) message] The system which generated this result transmitted reference range : <=125. The reference range was not used to interpret this result as normal/abnormal . JUAN LUIS (test code = JUAN LUIS) Biotin has been reported to cause a negative bias, interpret results relative to patient's use of biotin. Lab Interpretation Abnormal (test code = 16755-2) [facility] (NA, K, CL, CO2, GLUCOSE, BUN, CREATININE, CA)2019-08-19 11:00:00 Test Item Value Reference Range Interpretation Comments NA (test code = 138 mmol/L 135-145 0913950972) K (test code = 3.1 mmol/L 3.5-5 L 5227183004) CL (test code = 106 mmol/L 98-108 0511341392) CO2 TOTAL (test code = 26 mmol/L 23-31 3875627809) AGAP (test code = 2-16 3904609272) BUN (test code = 31 mg/dL 7-23 H 1344499591) GLUCOSE (test code = 61 mg/dL 70-110 L 9691730885) CREATININE (test code = 1.28 mg/dL 0.6-1.25 H 1615016788) CALCIUM (test code = 9.2 mg/dL 8.6-10.6 9141136577) eGFR Calculation mL/min/1.73m2 (Non-) (test code = 3654388569) eGFR Calculation mL/min/1.73m2 () (test code = 9056089970) JUAN LUIS (test code = JUAN LUIS) [...] tests). Lab Interpretation Abnormal (test code = 50654-8) [facility]UR[facility] [id number] 10:53:00 Test Item Value Reference Range Interpretation Comments URIC ACID (test code = 8454283891) 5.3 mg/dL 3.6-8 Lab Interpretation (test code = Normal 27551-0) [facility]AllenMAGNESIUM2020-02-05 10:53:00 Test Item Value Reference Range Interpretation Comments MAGNESIUM (test code = 8751002303) 2.3 mg/dL 1.7-2.4 Lab Interpretation (test code = Normal 30137-7) [facility]AllenPHOSPHORUS2020-02-05 10:53:00 Test Item Value Reference Range Interpretation Comments PHOSPHORUS (test code = 8590440635) 3.3 mg/dL 2.5-5 Lab Interpretation (test code = Normal 44707-6) [facility] WITH [id number] 10:30:00 Test Item Value Reference Range Interpretation [...] (test code = 34.7 fL 38.5-51.6 L 68723-0) RDW-CV (test code = 15.2 % 12.1-15.4 788-0) PLT (test code = See_Comment [Automated 777-3) message] The sy stem which generated this result transmitted reference range : 150 - 328 10*3/ ?L. The reference r christine was not used to interpret this result as normal/abnormal . MPV (test code = Not Measure d 67447-2) IPF % (test code = 6.8 % 1.2-10.7 Platelet count [id number]) measured by fluorescence method. NRBC/100 WBC (test See_Comment [Automat ed code = 6626653496) message] The system which generated this result transmitted reference range : 0.0 - 10.0 /100 WBCs. The refer ence range was not u sed to interpret th is result as normal/abnormal . NRBC x10^3 (test code <0.01 See_Comment [Auto mated = 3702638479) message] The s ystem which generated this result transmitted reference range : 10*3/?L. The reference range was not used to interpret this result as normal/abnormal . GRAN MAT (NEUT) % 60.5 % (test code = 770-8) IMM GRAN % (test code 0.30 % = 0420660522) LYMPH % (test code = 26.2 % 736-9) MONO % (test code = 9.8 % 5905-5) EOS % (test code = 2.6 % 713-8) BASO % (test code = 0.6 % 706-2) GRAN MAT x10^3(ANC) 6.61 10*3/uL 1.99-6.95 (test code = 1453938116) IMM GRAN x10^3 (test 0.03 10*3/uL 0-0.06 code = 9316574231) LYMPH x10^3 (test code 2.86 10*3/uL 1.09-3.23 = 731-0) MONO x10^3 (test code 1.07 10*3/uL 0.36-1.02 H = 742-7) EOS x10^3 (test code = 0.28 10*3/uL 0.06-0.53 711-2) BASO x10^3 (test code 0.07 10*3/uL 0.01-0.09 = 704-7) Lab Interpretation Abnormal (test code = 18807-7) [facility] GLUCOSE (AUTOMATED)2019-08-19 10:02:00 Test Item Value Reference Range Interpretation Comments POCT GLU (test code = 0840719771) 81 mg/dL 70-110 Lab Interpretation (test code = Normal 57431-8) [facility] GLUCOSE (AUTOMATED)2019-08-19 04:46:00 Test Item Value Reference Range Interpretation Comments POCT GLU (test code = 2798846481) 325 mg/dL 70-110 H Lab Interpretation (test code = Abnormal 07860-6) [id number] 04:45:00 Test Item Value Reference Range Interpretation Comments URIC ACID (test code = 6571670348) 5.2 mg/dL 3.6-8 Lab Interpretation (test code = Normal 33740-3) [facility] [id number] 04:08:00 Test Item Value Reference Range Interpretation Comments TROPONIN I (test 0.026 ng/mL See_Comment [Automated code = 4700911932) message] The system which generated this result [...] ? Lab Interpretation Normal (test code = 57749-8) [facility] (Total Cholesterol, Triglycerides, HDL)2019-08-19 03:55:00 Test Item Value Reference Range Interpretation Comments CHOL (test code = 196 mg/dL 120-200 8132065421) HDL (test code = 36 mg/dL >40 L 2074996654) HDLC RATIO (test code = See_Comment H [Au tomated message] 6644077002) The system [employer] generated this result transmit tennille reference range : <=5.0. The refe rence range was not u sed to interpret th is result as normal/abnormal . TRIG (test code = 131 mg/dL 30-170 9472382064) LDL CHOL (test code = 134 mg/dL See_Comment [Auto mated message] 57889-8) The system [employer] generated this result transmit tennille reference range : <=160. The refe rence range was not u sed to interpret th is result as normal/abnormal . VLDL (test code = 26 mg/dL 5-60 1308484747) Lab Interpretation (test Abnormal code = 62790-9) [facility]2019-08-19 01:40:00 Test Item Value Reference Range Interpretation Comments POCT GLU (test code = 6602637162) 381 mg/dL 70-110 H Lab Interpretation (test code = Abnormal 41692-5) [facility] Hormone (TSH)2019-08-19 00:12:00 Test Item Value Reference Range Interpretation Comments TSH (test code = See_Comment Biotin has been 3870731203) reported to cau se a negative bias, interpret resul ts relative to carla centeno's use of biotin. [Automated mess age] The system [employer] generated this result transmitted ref erence range: 0.45 - 4 .70 mIU/L. The refe rence range was not u sed to interpret this result as normal/abnor mal. Lab Interpretation (test Normal code = 20332-4) [facility] Hem[facility] (A1C)2019-08-19 00:11:00 Test Item Value Reference [...] Indicated Lab Interpretation Abnormal (test code = 98608-9) [facility] (Total Cholesterol, Triglycerides, HDL) - [id number] 23:40:00 Test Item Value Reference Range Interpretation Comments CHOL (test code = 199 mg/dL 120-200 0396623236) HDL (test code = 36 mg/dL >40 L 8144765738) HDLC RATIO (test code = See_Comment H [Au tomated message] 0401194506) The system [employer] generated this result transmit tennille reference range : <=5.0. The refe rence range was not u sed to interpret th is result as normal/abnormal . TRIG (test code = 146 mg/dL 30-170 0717799309) LDL CHOL (test code = 134 mg/dL See_Comment [Auto mated message] 85418-7) The system [employer] generated this result transmit tennille reference range : <=160. The refe rence range was not u sed to interpret th is result as normal/abnormal . VLDL (test code = 29 mg/dL 5-60 8635803248) Lab Interpretation (test Abnormal code = 93387-8) [facility]2019-08-18 23:33:00 Test Item Value Reference Range Interpretation Comments POCT GLU (test code = 0765476792) 424 mg/dL 70-110 H Lab Interpretation (test code = Abnormal 50789-5) [facility]-TERMINAL [id number] 21:57:00 Test Item Value Reference Range Interpretation Comments NT-proBNP (test code 16894 pg/mL See_Comment H [Autom ated = 6284763563) message] The system which generated this result transmitted reference range : <=125. The reference range was not used to interpret this result as normal/abnormal . JUAN LUIS (test code = JUAN LUIS) Biotin has been reported to cause a negative bias, interpret results relative to patient's use of biotin. Lab Interpretation Abnormal (test code = 96866-5) [id number] 21:26:00 Test Item Value Reference Range Interpretation Comments APTT Patient (test See_Comment [Automat ed code = 3173-2) message] The system which generated this result transmitted reference range : 23 - 38 Seconds . The reference range was not used to interpr et this result as normal/abnormal . JUAN LUIS (test code = JUAN LUIS) The [facility] patient population mean normal value for aPTT is 30 seconds. Lab Interpretation Normal (test code = 94899-7) [facility]AllenPROTHROMBIN TIME / [id number] 21:24:00 Test Item Value Reference Range Interpretation [...] tions. Lab Interpretation (test Normal code = 20789-9) [facility] [id number] 21:14:00 Test Item Value Reference Range Interpretation Comments TROPONIN I (test 0.023 ng/mL See_Comment [Automated code = 7675370650) message] The system which generated this result [...] ? Lab Interpretation Normal (test code = 20908-2) [facility] 2 [id number] 21:02:07HISTORY: ?Chest pain. TECHNIQUE: PA and lateral [...] in the lower lungs with small bilateralpleural effusion.[facility]. METABOLIC PANEL (68433)2019-08-18 21:02:00 Test Item Value Reference Range Interpretation Comments NA (test code = 134 mmol/L 135-145 L 7889105167) K (test code = 3.8 mmol/L 3.5-5 8445133496) CL (test code = 103 mmol/L 98-108 5653812168) CO2 TOTAL (test code = 25 mmol/L 23-31 6848310194) AGAP (test code = 2-16 4074269821) BUN (test code = 29 mg/dL 7-23 H 5911387883) GLUCOSE (test code = 384 mg/dL 70-110 H 5891927132) CREATININE (test code = 1.14 mg/dL 0.6-1.25 2063376160) TOTAL BILI (test code = 0.3 mg/dL 0.1-1.2 9173554619) CALCIUM (test code = 8.7 mg/dL 8.6-10.6 6753616572) T PROTEIN (test code = 6.1 g/dL 6.3-8.2 L 3860946703) ALBUMIN (test code = 3.3 g/dL 3.5-5 L 0627423985) ALK PHOS (test code = 84 U/L 34-122 2858169212) ALTv (test code = 11 U/L 5-50 1742-6) AST(SGOT) (test code = 18 U/L 13-40 3021518862) eGFR Calculation mL/min/1.73m2 (Non-) (test code = 8746496167) eGFR Calculation mL/min/1.73m2 () (test code = 5098554393) JUAN LUIS (test code = JUAN LUIS) [...] tests). Lab Interpretation Abnormal (test code = 14945-4) [facility]Allen[facility]IP[facility], [id number] 21:02:00 Test Item Value Reference Range Interpretation Comments LIPASE (test code = 0565608987) 82 U/L 0-220 Lab Interpretation (test code = Normal 44105-9) [facility] WITH [id number] 21:00:00 Test Item Value Reference Range Interpretation Comments WBC (test code = See_Comment [Automated 9128-2) message] The sy stem which generated this result transmitted reference range : 4.20 - 10.70 10*3/?L. The reference range was not used to interpret this result as normal/abnormal . RBC (test code = See_Comment [Automated 363-8) message] The sy stem which generated this [...] (test code = 35.4 fL 38.5-51.6 L 28822-7) RDW-CV (test code = 15.3 % 12.1-15.4 788-0) PLT (test code = See_Comment [Automated 777-3) message] The sy stem which generated this result transmitted reference range : 150 - 328 10*3/ ?L. The reference r christine was not used to interpret this result as normal/abnormal . MPV (test code = Not Measure d 30957-9) NRBC/100 WBC (test See_Comment [Automat ed code = 0651002825) message] The system which generated this result transmitted reference range : 0.0 - 10.0 /100 WBCs. The refer ence range was not u sed to interpret th is result as normal/abnormal . NRBC x10^3 (test code <0.01 See_Comment [Auto mated = 4548313037) message] The s ystem which generated this result transmitted reference range : 10*3/?L. The reference range was not used to interpret this result as normal/abnormal . GRAN MAT (NEUT) % 72.4 % (test code = 770-8) IMM GRAN % (test code 0.40 % = 4648074151) LYMPH % (test code = 16.5 % 736-9) MONO % (test code = 7.6 % 5905-5) EOS % (test code = 2.6 % 713-8) BASO % (test code = 0.5 % 706-2) GRAN MAT x10^3(ANC) 6.03 10*3/uL 1.99-6.95 (test code = 1889199080) IMM GRAN x10^3 (test 0.03 10*3/uL 0-0.06 code = 3136732686) LYMPH x10^3 (test code 1.37 10*3/uL 1.09-3.23 = 731-0) MONO x10^3 (test code 0.63 10*3/uL 0.36-1.02 = 742-7) EOS x10^3 (test code = 0.22 10*3/uL 0.06-0.53 711-2) BASO x10^3 (test code 0.04 10*3/uL 0.01-0.09 = 704-7) Lab Interpretation Abnormal (test code = 80483-6) [facility]"
[2021-07-07 18:30] LABS: Absolute Lymphocytes (CBC) 0.8 K/uL (0.7-4.9); Basophils % 1.1 % (0-1.3); Lymphocytes % 12.7 % (15.3-44.8); MPV 10.4 fL (7.6-11.3); RBC Red Blood Cell Count 2.89 M/uL (4.33-5.43)
--- NOTE | 2021-07-07 18:44 | ER ---
Nurse's Notes [facility] Name: Mumtaz Anderson Age: 66 yrs Sex: Male : 1955 Arrival Date: 07/07/2021 Time: 17:49 Bed 2 Private MD: Diagnosis: Systolic (congestive) heart failure;Anemia, unspecified;UTI/ Urinary tract infection, site not specified;Chest pain, unspecified Presentation: 07/07 17:50 Chief complaint: EMS states: " is concerned about a possible UTI. states that al4 she has noticed that urine output has decreased, urine is "cloudy" and "stinky", and patient has been "delirious". Catheter was changed 8 days ago.". Coronavirus screen: Vaccine status: Patient reports receiving the 2nd dose of the covid vaccine. At this time, the client does not indicate any symptoms associated with coronavirus-19. Ebola Screen: No symptoms or risks identified at this time. Initial Sepsis Screen: Does the patient meet any 2 criteria? No. Patient's initial sepsis screen is negative. Does the patient have a suspected source of infection? No. Patient's initial sepsis screen is negative. Risk Assessment: Do you want to hurt yourself or someone else? Patient reports no desire to harm self or others. Onset of symptoms was July 05, 2021. 17:50 Method Of Arrival: EMS al4 17:50 Acuity: VIDAL 3 al4 Historical: - Allergies: 17:55 anextuss; al4 17:55 Latex, Natural Rubber; al4 17:55 spironolactone; al4 - Home Meds: 19:16 Albuterol Inhl [Active]; aspirin 81 mg Oral chew once daily [Active]; atorvastatin 80 as6 mg Oral tab 1 tab once daily [Active]; Carafate 100 mg/mL Oral susp 4 times per day [Active]; clopidogrel 75 mg Oral tab 1 tab once daily [Active]; doxazosin 2 mg Oral tab once daily [Active]; ferrous sulfate 325 mg (65 mg iron) Oral tab three times a day [Active]; escitalopram oxalate 20 mg Oral tab 2 tab once daily [Active]; gabapentin 300 mg Oral cap BID [Active]; metoprolol tartrate 100 mg Oral tab 2 times per day [Active]; tamsulosin 0.4 mg Oral cap 1 cap [Active]; Lasix 40 mg Oral tab 1 tab 2 times per day [Active]; tramadol 50 mg Oral tab [Active]; Norvasc 10 mg Oral tab once daily [Active]; Novolin 70/30 [place] Sub-Q [Active]; trazodone 150 mg Oral tab [Active]; - PMHx: 19:16 Anemia; CAD; Cerebrovascular accident; CHF; COPD; Diabetes - IDDM; as6 Hypercholesterolemia; Hypertension; kidney disease; Myocardial infarction; Parkinsons; Pneumonia; Seizures; - PSHx: 19:16 Coronary artery bypass graft; hip; knee; PEG tube; as6 - Immunization history:: Adult Immunizations up to date, Client reports receiving the 2nd dose of the Covid vaccine, Pneumococcal vaccine is not up to date, Flu vaccine is not up to date. - Social history:: Smoking status: Patient denies any tobacco usage or history of. Patient/guardian denies using alcohol, street drugs, The patient lives with family. - Family history:: not pertinent. Screenin:15 Abuse screen: Denies threats or abuse. Nutritional screening: No deficits noted. as6 Tuberculosis screening: No symptoms or risk factors identified. Fall Risk IV access (20 points). Ambulatory Aid- Gait- Weak (10 pts.). Mental Status- Oriented to own ability (0 pts). Total Walter Fall Scale indicates Low Risk Score (25-44 pts). Side Rails Up X 2 Frequent Obs/Assesments occuring As available Patient and Family Educated on Fall Prevention Program and strategies. Assessment: 19:14 General: Appears in no apparent distress. Behavior is calm, cooperative. Pain: Denies as6 pain. Neuro: Level of Consciousness is awake, alert, obeys commands, Oriented to person, place, time, situation. Cardiovascular: Capillary refill < 3 seconds Patient's skin is warm and dry. Respiratory: Airway is patent Trachea midline Respiratory effort is even, unlabored, Respiratory pattern is regular, symmetrical. : Holcomb in place. Derm: Skin is intact, Skin is pale. 19:18 GI: PEG tube. as6 22:37 Reassessment: Patient appears in no apparent distress at this time. General: blood as6 transfusion being preformed, see paper charting . Vital Signs: 17:50 BP 148 / 65; Pulse 64; Resp 18; Temp 98.6; Pulse Ox 97% ; Pain 0/10; al4 19:13 BP 103 / 51; Pulse 59; Resp 18 S; Pulse Ox 100% on R/A; as6 22:09 BP 138 / 78; Pulse 58; Resp 18 S; Pulse Ox 98% on R/A; as6 22:38 BP 152 / 62; Pulse 60; Resp 9 S; Temp 98.4(O); Pulse Ox 99% on R/A; as6 ED Course: 17:49 Patient arrived in ED. al4 17:50 Pritesh Rees MD is Attending Physician. ma2 17:54 Triage completed. al4 18:13 Venkat Richey, ANDRADE is Primary Nurse. ll1 18:43 Matthew Michelle DO is Hospitalizing Provider. ma2 18:50 Inserted saline lock: 22 gauge in left antecubital area, using aseptic technique. Blood jd3 collected. 18:53 Chest Single View XRAY In Process Unspecified. EDMS 19:16 Bed in low position. Call light in reach. Side rails up X2. Pulse ox on. NIBP on. Warm as6 blanket given. 19:16 Arm band placed on. as6 19:19 Attending Physician role handed off by Pritesh Rees MD stanley 19:19 Homer Dang MD is Attending Physician. stanley 20:01 Antonio Tobias MD is Hospitalizing Provider. stanley 22:39 No provider procedures requiring assistance completed. Patient admitted, IV remains in as6 place. Administered Medications: 19:11 Drug: Rocephin (cefTRIAXone) 1 grams Route: IV; Rate: calculated rate; Site: left as6 antecubital; 22:37 Follow up: Response: No adverse reaction; IV Status: Completed infusion; IV Intake: 09qjvh2 19:47 Drug: Lasix (furosemide) 20 mg Route: IVP; Site: left antecubital; as6 22:37 Follow up: Response: No adverse reaction as6 21:19 Drug: ProTONIX (pantoprazole) 40 mg Route: IVP; Site: left antecubital; corona 22:37 Follow up: Response: No adverse reaction as6 Intake: 22:37 IV: 50ml; Total: 50ml. as6 Outcome: 18:43 Decision to Hospitalize by Provider. ma2 20:22 Decision to Hospitalize by Provider. stanley 22:39 Admitted to Med/surg accompanied by nurse, family with patient, via stretcher, room as6 219, with chart, Report called to vandana trejo 22:39 Condition: stable 23:18 Patient left the ED. as6 Signatures: Dispatcher [employer] EDMS Homer Dang MD MD cha Davies, Jonathon, RN RN Pritesh Frazier MD MD ma2 Venkat Richey RN RN ll1 Placido Handy RN RN as6 Kenney Mota Brenda RN ANDRADE corona
--- NOTE | 2021-07-07 18:44 | EDPHYS ---
Physician Documentation [facility] Name: Mumtaz Anderson Age: 66 yrs Sex: Male : 1955 Arrival Date: 07/07/2021 Time: 17:49 Bed 2 Private MD: ED Physician Homer Dang HPI: 07/07 18:01 This 66 yrs old Male presents to ER via EMS with complaints of Here with urinary tract ma2 infection, foul-smelling urine. He has a Holcomb catheter and bedridden.. 18:01 Onset: The symptoms/episode began/occurred gradually, 1 day(s) ago. Associated signs ma2 and symptoms: Pertinent negatives: constipation, diarrhea, dysuria, fever, hematuria, nausea, vomiting. Severity of symptoms: At their worst the symptoms were moderate, in the emergency department the symptoms are unchanged. The patient has experienced similar episodes in the past. Historical: - Allergies: 17:55 anextuss; al4 17:55 Latex, Natural Rubber; al4 17:55 spironolactone; al4 - Home Meds: 19:16 Albuterol Inhl [Active]; aspirin 81 mg Oral chew once daily [Active]; atorvastatin 80 as6 mg Oral tab 1 tab once daily [Active]; Carafate 100 mg/mL Oral susp 4 times per day [Active]; clopidogrel 75 mg Oral tab 1 tab once daily [Active]; doxazosin 2 mg Oral tab once daily [Active]; ferrous sulfate 325 mg (65 mg iron) Oral tab three times a day [Active]; escitalopram oxalate 20 mg Oral tab 2 tab once daily [Active]; gabapentin 300 mg Oral cap BID [Active]; metoprolol tartrate 100 mg Oral tab 2 times per day [Active]; tamsulosin 0.4 mg Oral cap 1 cap [Active]; Lasix 40 mg Oral tab 1 tab 2 times per day [Active]; tramadol 50 mg Oral tab [Active]; Norvasc 10 mg Oral tab once daily [Active]; Novolin 70/30 [place] Sub-Q [Active]; trazodone 150 mg Oral tab [Active]; - PMHx: 19:16 Anemia; CAD; Cerebrovascular accident; CHF; COPD; Diabetes - IDDM; as6 Hypercholesterolemia; Hypertension; kidney disease; Myocardial infarction; Parkinsons; Pneumonia; Seizures; - PSHx: 19:16 Coronary artery bypass graft; hip; knee; PEG tube; as6 - Immunization history:: Adult Immunizations up to date, Client reports receiving the 2nd dose of the Covid vaccine, Pneumococcal vaccine is not up to date, Flu vaccine is not up to date. - Social history:: Smoking status: Patient denies any tobacco usage or history of. Patient/guardian denies using alcohol, street drugs, The patient lives with family. - Family history:: not pertinent. ROS: 18:01 Constitutional: Negative for fever, chills, and weight loss. ma2 18:01 All other systems are negative. Exam: 18:01 Constitutional: This is a well developed, well nourished patient who is awake, alert, ma2 and in no acute distress. Head/Face: Normocephalic, atraumatic. Eyes: Pupils equal round and reactive to light, extra-ocular motions intact. Lids and lashes normal. Conjunctiva and sclera are non-icteric and not injected. Cornea within normal limits. Periorbital areas with no swelling, redness, or edema. ENT: Nares patent. No nasal discharge, no septal abnormalities noted. Tympanic membranes are normal and external auditory canals are clear. Oropharynx with no redness, swelling, or masses, exudates, or evidence of obstruction, uvula midline. Mucous membranes moist. Neck: Trachea midline, no thyromegaly or masses palpated, and no cervical lymphadenopathy. Supple, full range of motion without nuchal rigidity, or vertebral point tenderness. No Meningismus. Chest/axilla: Normal chest wall appearance and motion. Nontender with no deformity. No lesions are appreciated. Cardiovascular: Regular rate and rhythm with a normal S1 and S2. No gallops, murmurs, or rubs. Normal PMI, no JVD. No pulse deficits. Respiratory: Lungs have equal breath sounds bilaterally, clear to auscultation and percussion. No rales, rhonchi or wheezes noted. No increased work of breathing, no retractions or nasal flaring. Abdomen/GI: Soft, non-tender, with normal bowel sounds. No distension or tympany. No guarding or rebound. No evidence of tenderness throughout. Skin: Warm, dry with normal turgor. Normal color with no rashes, no lesions, and no evidence of cellulitis. MS/ Extremity: Pulses equal, no cyanosis. Neurovascular intact. Full, normal range of motion. Neuro: Awake and alert, GCS 15, oriented to person, place, time, and situation. Cranial nerves II-XII grossly intact. Motor strength 5/5 in all extremities. Sensory grossly intact. Cerebellar exam normal. Normal gait. 18:02 Male : There is a Holcomb catheter, in good order since June 29. Normal genitalia ma2 with no discharge or lesions. 21:09 ECG was reviewed by the Attending Physician. [facility] Vital Signs: 17:50 BP 148 / 65; Pulse 64; Resp 18; Temp 98.6; Pulse Ox 97% ; Pain 0/10; al4 19:13 BP 103 / 51; Pulse 59; Resp 18 S; Pulse Ox 100% on R/A; as6 22:09 BP 138 / 78; Pulse 58; Resp 18 S; Pulse Ox 98% on R/A; as6 22:38 BP 152 / 62; Pulse 60; Resp 9 S; Temp 98.4(O); Pulse Ox 99% on R/A; as6 MDM: 17:50 Patient medically screened. ma2 18:01 Differential diagnosis: UTI, prostatitis, urethritis. ma2 18:26 ED course: EKG shows left bundle branch block, however patient does not have any chest ma2 pain or any symptom other than dysuria. No abdominal pain, no anginal equivalent, no shortness of breath. 18:37 Data reviewed: vital signs, nurses notes. Counseling: I had a detailed discussion with ma2 the patient and/or guardian regarding: the historical points, exam findings, and any diagnostic results supporting the discharge/admit diagnosis, the presence of at least one elevated blood pressure reading (>120/80) during this emergency department visit, the need for outpatient follow up. ED course: . 18:42 ED course: I discussed the case with Jose, hospitalist provider, he is going to evaluate ma2 the patient. Patient does not have active bleeding, however hemoglobin is 6.5 he needs blood transfusion, and urine is pending.. 18:49 ED course: Since Dr. Tobias is the primary care doctor, will need urine before ma2 discussing, planning disposition. Will transfuse in the ER. . 07/07 18:00 Order name: Basic Metabolic Panel; Complete Time: 19:08 [facility] 07/07 18:00 Order name: CBC with Diff; Complete Time: 19:40 [facility] 07/07 18:00 Order name: Hepatic Function; Complete Time: 19:08 [facility] 07/07 18:00 Order name: Lipase; Complete Time: 19:08 [facility] 07/07 18:39 Order name: Bb Add On ss 07/07 18:39 Order name: Type And Screen ss 07/07 18:42 Order name: Urine Microscopic Only [facility] 07/07 18:42 Order name: Urine Culture [facility] 07/07 18:42 Order name: Procalcitonin; Complete Time: 20:00 [facility] 07/07 18:42 Order name: Blood Culture Adult (2) [facility] 07/07 18:44 Order name: BNP [facility] 07/07 18:44 Order name: Troponin (emerg Dept Use Only); Complete Time: 19:14 [facility] 07/07 18:44 Order name: NT PRO-BNP; Complete Time: 19:14 [facility] 07/07 17:53 Order name: Urine Dipstick-Ancillary (obtain specimen); Complete Time: 19:32 [facility] 07/07 18:00 Order name: IV Saline Lock; Complete Time: 18:13 [facility] 07/07 18:00 Order name: Labs collected and sent; Complete Time: 18:13 [facility] 07/07 18:35 Order name: Transfuse: 2 units pRBC then discharge home; Complete Time: 22:37 [facility] 07/07 18:44 Order name: Chest Single View XRAY; Complete Time: 19:08 [facility] 07/07 19:05 Order name: Packed RBC Leukored [facility] 07/07 19:27 Order name: CBC Smear Scan; Complete Time: 19:40 [facility] 07/07 19:32 Order name: Urine Dipstick-Ancillary; Complete Time: 19:40 [facility] 07/07 21:03 Order name: COVID-19 SARS RT PCR (Document "Date of Onset" if Symptomatic) 9 07/07 21:45 Order name: SARS-COV-2 RT PCR EDMS EC:09 Rate is 60 beats/min. Rhythm is regular. QRS [place] is Normal. AR interval is prolonged stanley at 252 msec. QRS interval is normal. QT interval is normal. No Q waves. T waves are Normal. No ST changes noted. Clinical impression: NSR w/ Non-specific ST/T Changes and No evidence of ischemia. Interpreted by me. Reviewed by me. Administered Medications: 19:11 Drug: Rocephin (cefTRIAXone) 1 grams Route: IV; Rate: calculated rate; Site: left as6 antecubital; 22:37 Follow up: Response: No adverse reaction; IV Status: Completed infusion; IV Intake: [id number] 19:47 Drug: Lasix (furosemide) 20 mg Route: IVP; Site: left antecubital; as6 22:37 Follow up: Response: No adverse reaction as6 21:19 Drug: ProTONIX (pantoprazole) 40 mg Route: IVP; Site: left antecubital; corona 22:37 Follow up: Response: No adverse reaction as6 Disposition Summary: 07/07/21 20:22 Hospitalization Ordered Hospitalization Status: Inpatient Admission(07/07/21 20:22) [place] Provider: Antonio Tobias(07/07/21 20:22) [place] Location: Telemetry/MedSurg (Inpatient)(07/07/21 20:22) [place] Condition: Fair(07/07/21 20:22) [place] Problem: new(07/07/21 20:22) [place] Symptoms: have improved(07/07/21 20:22) [place] Bed/Room Type: Standard(07/07/21 20:22) [facility] Room Assignment: 219(07/07/21 22:00) Diagnosis - Systolic (congestive) heart failure st[place]ley - Anemia, unspecified(07/07/21 20:22) [place] - UTI/ Urinary tract infection, site not specified stanley - Chest pain, unspecified [place] Discharge Instructions: - Discharge Summary Sheet ma2 - Anemia ma2 Forms: - Medication Reconciliation Form stanley - SBAR form [facility] Prescriptions: - Bactrim DS 800-160 mg Oral Tablet - take 1 tablet by ORAL route every 12 hours for 7 days; 14 tablet; Refills: 0, ma2 Product Selection Permitted Signatures: Dispatcher [employer] EDTorri Yee RN RN Homer Novoa MD MD cha Alzahri, Mohammad, MD MD ma2 Placido Handy RN RN as6 Mobile, Kenney al4 O'Shetty, Gricelda, RN RN corona Corrections: (The following items were deleted from the chart) 18:49 18:43 Observation ma2 ma2 18:49 18:43 PrezasJoiMatthew ma2 ma2 18:49 18:43 Telemetry/MedSurg (observation) ma2 ma2 18:49 18:43 Stable ma2 ma2 18:49 18:43 new ma2 ma2 18:49 18:43 are unchanged ma2 ma2 18:49 18:43 Standard ma2 ma2 18:49 18:43 ma2 ma2 18:49 18:43 Anemia, unspecified ma2 ma2 22:00 20:22 st[place] mw
[2021-07-07 18:52] LABS: Albumin 2.3 g/dL (3.4-5.0); Potassium 3.9 mmol/L (3.5-5.1)
[2021-07-07] MEDS ORDERED: NA CHLORIDE 0.9% 50 ML ONE (19:05)
[2021-07-07] MEDS ORDERED: CEFTRIAXONE 1000 MG/VIAL ONE (19:05)
--- NOTE | 2021-07-07 19:05 | RAD REPORT ---
EXAM DESCRIPTION: RAD - Chest Single View - 07/07/2021 6:54 pm CLINICAL HISTORY: ams Chest pain. COMPARISON: Chest Single View dated 06/10/2021; Chest Single View dated 06/01/2021; Chest Single Vie w dated 04/12/2021; Chest Single View dated 04/10/2021 FINDINGS: Portable technique limits examination quality. Moderate bilateral pulmonary opacities are present, greater on the right, probably representing pulmo nary edema. Pneumonia is another possibility in the right lung base but considered less likely. The h eart is moderately enlarged. Sternotomy wires present. IMPRESSION: Moderate CHF pattern is favored.
[2021-07-07 19:07] LABS: Bilirubin Direct 0.2 mg/dL (0-0.2); Bilirubin Total 0.4 mg/dL (0.2-1.0); Protein, Total 5.9 g/dL (6.4-8.2)
[2021-07-07 19:12] LABS: Troponin (Emerg Dept Use Only) 0.03 ng/mL (0.0-0.045)
[2021-07-07 19:27] LABS: Platelet Estimate DECR; White Blood Cell Scan OK (OK)
[2021-07-07 19:28] LABS: Anisocytosis 1+; Blood Morphology Comment NOTED (NOT SEEN); Hypochromasia 1+; Ovalocytes SLIGHT; Poikilocytosis 2+; Polychromasia SLIGHT
[2021-07-07 19:29] LABS: Burr Cells FEW; Teardrop Cell 1+
[2021-07-07 19:32] LABS: Urine Blood 2+ (Negative); Urine Glucose Negative (Negative); Urine Protein 3+ (Negative); Urine pH 6.5 (5.0-7.0)
[2021-07-07] MEDS ORDERED: FUROSEMIDE 20 MG/ 2ML VIAL ONE (19:47)
[2021-07-07 20:02] LABS: Urine Bacteria LOADED /HPF (NONE SEEN); Urine Yeast PRESENT (NONE SEEN)
[2021-07-07] MEDS ORDERED: D50W 25 GM/50 ML SYRINGE IV PRN (20:17)
[2021-07-07] MEDS ORDERED: GLUCAGON 1 MG/VIAL IM PRN (20:17)
[2021-07-07] MEDS: INSULIN -REGULAR HUMAN 50 UNIT/0.5 ML ML SQ SCH (21:00)
[2021-07-07] MEDS ORDERED: PANTOPRAZOLE 40 MG INJ ONE (21:01)
[2021-07-07] MEDS ORDERED: ALBUTEROL 2.5 MG/3 ML NEB SOL NEB PRN (22:06)
[2021-07-07] MEDS ORDERED: IPRATROPIUM BROM 0.5MG/2.5ML NEB PRN (22:06)
[2021-07-07] MEDS ORDERED: Meropenem 1 GM/100 ML BAG IV SCH (22:06)
[2021-07-07] MEDS ORDERED: ACETAMINOPHEN 325 MG TABLET PO PRN (22:06)
[2021-07-07] MEDS ORDERED: METOPROLOL TAR 50 MG TAB PO SCH (22:06)
[2021-07-07] MEDS ORDERED: SODIUM CHLORIDE 0.9% 10ML INJ IV PRN (22:06)
[2021-07-07] MEDS ORDERED: ONDANSETRON 4 MG/2 ML VIAL IV PRN (22:06)
[2021-07-07] MEDS ORDERED: NA CHLORIDE 0.9% 250 ML ONE (22:12)
[2021-07-07 23:30] VITALS: BMI 2925.3
[2021-07-08] MEDS: INSULIN -REGULAR HUMAN 50 UNIT/0.5 ML ML SQ SCH ×2 (00:02→07:30)
[2021-07-08 06:16] LABS: Absolute Lymphocytes (CBC) 0.9 K/uL (0.7-4.9); Basophils % 0.7 % (0-1.3); Hematocrit 26.1 % (39.6-49.0); Lymphocytes % 12.5 % (15.3-44.8); MPV 10.3 fL (7.6-11.3)
[2021-07-08 06:19] VITALS: O2SAT 97
[2021-07-08 06:45] LABS: Potassium 3.5 mmol/L (3.5-5.1)
--- NOTE | 2021-07-08 07:03 | RAD REPORT ---
EXAM DESCRIPTION: RAD - Chest Single View - 07/08/2021 6:29 am CLINICAL HISTORY: Chest Pain COMPARISON: Chest Single View dated 07/07/2021; Chest Single View dated 06/10/2021; Chest Single Vie w dated 06/01/2021; Chest Single View dated 04/12/2021; Thorax Wo Con dated 06/10/2021 FINDINGS: Lines: None. Lungs: Diffuse prominence of the pulmonary interstitium. Pleural: No significant pleural effusions or pneumothorax. Cardiac: Cardiomegaly. Sternotomy. Bones: No acute fractures. Other: IMPRESSION: Similar appearance compared with 07/07/2021 likely representing congestive heart failure .
[2021-07-08] MEDS ORDERED: CLOPIDOGREL 75 MG TABLET PO SCH (09:00)
[2021-07-08] MEDS ORDERED: Meropenem 1,000 MG in NA CHLORIDE 0.9% 100 ML IV SCH (09:00)
[2021-07-08] MEDS ORDERED: INFLUENZA VACCINE (for 6+ mo) 0.5 ML DOSE IMVAC ONE (09:00)
[2021-07-08] MEDS ORDERED: ASPIRIN EC 81 MG TAB PO SCH (09:00)
[2021-07-08] MEDS ORDERED: PANTOPRAZOLE 40 MG INJ IVP SCH (09:00)
[2021-07-08] MEDS ORDERED: PNEUMOCOCCAL VACCINE 0.5 ML IMVAC ONE (09:00)
[2021-07-08] MEDS ORDERED: FUROSEMIDE 40 MG/4 ML VIAL IV SCH (09:00)
[2021-07-08 09:36] VITALS: BP 173/72; TEMP 97.8
[2021-07-08] MEDS ORDERED: NA CHLORIDE 0.9% 200 ML ONE (10:27)
--- NOTE | 2021-07-08 11:52 | P.SSS ---
Patient History Date of Service: 07/08/21 Primary Care Provider: Jatinder Reason for admission: anemia, acute on chronic History of Present Illness: Patient is here for weakness. Was found to be anemic at 6.5 He has a history of chronic anemia. The patient has been worked up as an out patient. Requires chronic transfusions. He also had a UTI. He is mostly bed bound. The patient is resting comfortable in his bed. He recieved 2 units of prbc. Would like to do well. Allergies spironolactone Adverse Reaction (Verified 04/02/21 23:03) Anaphylaxis nexen Adverse Reaction (Uncoded 02/08/21 23:48) hallucination Home Medications: Aspirin [Adult Aspirin Regimen] 81 mg FT BEDTIME 06/04/20 Atorvastatin Calcium [Lipitor] 80 mg FT BEDTIME 06/04/20 Amlodipine [Norvasc*] 10 mg FT DAILY 07/16/20 Clopidogrel Bisulfate [Plavix*] 75 mg FT DAILY 07/16/20 Escitalopram [Lexapro*] 40 mg FT DAILY 07/16/20 Gabapentin 300 mg FT BID 07/16/20 Doxazosin [Cardura*] 2 mg FT BEDTIME 30 Days #30 tab 12/08/20 Ascorbic Acid [Vitamin C] 2,000 mg FT BID 12/16/20 Sucralfate [Carafate] 100 mg FT SEECOM 12/16/20 Trazodone HCl 150 tab FT BEDTIME 12/16/20 Furosemide 20 mg PO BID 04/02/21 Insulin -Regular Human [Novolin -R*] 100 units SQ ACHS 04/02/21 Ferrous Sulfate [Ferrous Sulfate Elixir*] 220 mg FT BID 06/10/21 Nut.tx.impaired Renal Fxn,Soy [Nepro Carb Steady] 360 mg FT QID 06/10/21 Ondansetron [Ondansetron Odt] 4 mg FT Q8H PRN 06/10/21 Promethazine Tab [Phenergan*] 25 mg FT Q6H PRN 06/10/21 Tamsulosin [Flomax*] 0.4 mg PO DAILY 06/10/21 Nitrofurantoin Macrocrystal [Macrodantin] 100 mg PO TID 5 Days #15 capsule 06/12/21 Smz./Tmp. 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 He lives with his son. - Family History Father -: Heart disease, Hypertension, Lung disease, GI disease, Diabetes, Cancer, Other (see notes) Notes: parkinson's disease Mother -: Heart disease, Hypertension, Diabetes, Cancer Sister -: Cancer - Social History Smoking Status: Former smoker Alcohol use: No CD- Drugs: No Caffeine use: Yes Place of Residence: Home Review of Systems 10-point ROS is otherwise unremarkable Physical Examination - Vital Signs Temperature: 97.8 F Blood Pressure: 173/72 Pulse: 58 Respirations: 18 Pulse Ox (%): 98 - Physical Exam General: Alert, In no apparent distress HEENT: Atraumatic, PERRLA, Mucous membr. moist/pink, EOMI, Sclerae nonicteric Neck: Supple, 2+ carotid pulse no bruit, No LAD, Without JVD or thyroid abnormality Respiratory: Clear to auscultation bilaterally, Normal air movement Cardiovascular: Regular rate/rhythm, Normal S1 S2 Gastrointestinal: Normal bowel sounds, No tenderness Musculoskeletal: No tenderness Integumentary: No rashes Neurological: Normal gait, Normal speech, Normal strength at 5/5 x4 extr, Normal tone, Normal affect Lymphatics: No axilla or inguinal lymphadenopathy - Studies Laboratory Data (last 24 hrs) 07/07/21 18:20: WBC 6.60, Hgb 6.4 L*, Hct 20.0 L*, Plt Count 126 L 07/07/21 18:20: Sodium 141, Potassium 3.9, BUN 47 H, Creatinine 1.58 H, Glucose 115 H, Total Bilirubin 0.4, AST 21, ALT 34, Alkaline Phosphatase 78, Lipase 124 - Diagnosis (Problem(s)) (1) Anemia, chronic disease Current Visit: Yes Status: Acute Plan: acute on chronic. 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 he requries routine transfusions. Stable after 2 units. Will discharge him home as per the patients request. (2) Anemia aplastic aregenerative Current Visit: No Status: Chronic Plan: continue with transfusion. He is being followed by Dr. Fierro. 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 Will continue current insulin treatment Qualifiers: Coma presence: without coma - Disposition Disposition: ROUTINE DISCHARGE Condition: GOOD Diet: ADA Physician Review: Patient Assessed, Agree with Above Assessment and Plan Critical Care: No Time Spent Managing Pts Care (In Minutes): 45
[2021-07-09] MEDS ORDERED: PANTOPRAZOLE 40 MG INJ IVP SCH (09:00)
== END 2021-07-08 13:25 | disposition home or self-care (01) ==
LOC: ER 17:33 → ERHOLD 20:17 → INTOOBSV 20:17 → 2ND 22:01
PROVIDERS: ADMIT Internal Medicine; ATTEND Internal Medicine
DX: D64.9 Anemia, unspecified (principal); D61.89 Other specified aplastic anemias and other bone marrow failure syndromes; E11.65 Type 2 diabetes mellitus with hyperglycemia; N39.0 Urinary tract infection, site not specified; I25.10 Atherosclerotic heart disease of native coronary artery without angina pectoris; E78.5 Hyperlipidemia, unspecified; I13.0 Hypertensive heart and chronic kidney disease with heart failure and stage 1 through stage 4 chronic kidney disease, or unspecified chronic kidney disease; E11.22 Type 2 diabetes mellitus with diabetic chronic kidney disease; N18.30 Chronic kidney disease, stage 3 unspecified; I50.32 Chronic diastolic (congestive) heart failure; J44.9 Chronic obstructive pulmonary disease, unspecified; Z95.1 Presence of aortocoronary bypass graft; Z20.822 Contact with and (suspected) exposure to COVID-19
CPT/HCPCS: 96365; 93005; 87040 ×2; 87088; 85025 ×2; 87086; 80048 ×2; 36415; 86900; 86850; 87205 ×4; 86901; 82947; 80076; 87077; 87186; 84484 ×2; 83690; 84145; 83880 ×2; 71045 ×2; 96375; 99285; 96366; U0003; J1940 ×2; C9113 ×2; J2185; P9016 ×2; J7050; 81003; 81015; G0378

== ENCOUNTER 2021-08-24 10:55 | Inpatient (IN) | payer OTHER ==
[2021-08-24] MEDS ORDERED: NA CHLORIDE 0.9% 2,000 ML ONE (11:24)
[2021-08-24 11:29] LABS: Absolute Lymphocytes (CBC) 0.6 K/uL (0.7-4.9); Hematocrit 19.7 % (39.6-49.0); Lymphocytes % 6.2 % (15.3-44.8); MPV 9.9 fL (7.6-11.3); RBC Red Blood Cell Count 2.81 M/uL (4.33-5.43)
[2021-08-24 11:31] LABS: Protime INR 1.06
--- OUTSIDE RECORDS SUMMARY | 2021-08-24 11:32 | XMS REPORT | Continuity of Care Document ---
:1955 Author Organization [facility] t Address [address] [place] [address] Care Team Providers Name Role Phone Ra CRUM Primary Care Physician Unavailable [id number] Attending Clinician Unavailable GALE Attending Clinician Unavailable TEREZA Attending Clinician Unavailable Charly JONES Attending Clinician Doctor Unassigned, Name Attending Clinician Unavailable Ileana Mcintyre Attending Clinician Unavailable Dionna ZAFAR, A Attending Clinician Unavailable Adrian ZAFAR Attending Clinician Scott Sullivan MD Attending Clinician Tereza JONES Attending Clinician Daisy JONES P Attending Clinician Kelton Espinosa DO Attending Clinician Dante Pretty MD, J Attending Clinician Gale JONES Attending Clinician Arash Cleveland DO Attending Clinician Jimy ZAFAR E Attending Clinician Milton Devlin MD Attending Clinician MILTON DEVLIN Attending Clinician Unavailable Landon Attending Clinician Mary Ellen Bah MD Attending Clinician Marlon JONES Attending Clinician Tay JONES Attending Clinician Balaji ECOLOGIST TECHNICIAN, M Attending Clinician Pob, Lab Main Attending Clinician Unavailable TAY Attending Clinician Unavailable Dion JONES Attending Clinician DION Attending Clinician Unavailable Anu LARSEN Attending Clinician Arash Sunshine MD Attending Clinician Arash SUNSHINE Attending Clinician Unavailable Elmo JONES Attending Clinician Unavailable ELMO Attending Clinician Unavailable ELMO Attending Clinician Unavailable 1, Lab Attending Clinician Unavailable Room, Therapy Tub Attending Clinician Unavailable DOYLE, Hailey Attending Clinician Unavailable Doyle MOP, R Attending Clinician RK TROTTER Attending Clinician Unavailable Singer LARSEN Attending Clinician GRIS Attending Clinician Unavailable Savita ROJAS R Attending Clinician Kayla JONES Attending Clinician Gris JONES Attending Clinician Joshua JONES Attending Clinician [id number] Admitting Clinician Unavailable TEREZA Admitting Clinician Unavailable Laurie JONES, Scott Admitting Clinician Marlon JONES Admitting Clinician Arash Sunshine MD Admitting Clinician Arash SUNSHINE Admitting Clinician Unavailable ELMO Admitting Clinician Unavailable Hailey KWON Admitting Clinician Unavailable RK TROTTER Admitting Clinician Unavailable GRIS Admitting Clinician Unavailable Gris JONES Admitting Clinician Payers Payer Name Policy Type Policy Number Effective Date Expiration Date S simone MEDICARE PART A [id number] 2020 \\T\\ B 00:00:00 MEDICAID SSI PENDING 2019 PENDING 00:00:00 Problems Condition Condition Condition Status Onset Resolution Last Treating Co mments Source Name Details Category Date Date Treatment Clinician Date E46 E46 Disease Active Univers Unspecifie Unspecifie 4-11 it y of d severe d severe 00:00: [place] protein-ca protein-ca 00 Me kevin maya Branch malnutriti malnutriti on on Upper GI Upper GI Disease Active Unive rs bleed bleed 4-10 ity of 00:00: [place] [facility] Hypoglycem Hypoglycem Disease Active 2020-0 U nivers ia ia 4-14 ity of 00:00: [place] [facility] CAD CAD Disease Active 2019- Univers (coronary (coronary 3-17 ity of artery artery 00:00: [place] disease) disease) 00 [facility] Branch CKD stage CKD stage Disease Active 2019- Uni vers 2 due to 2 due to 3-17 ity of type 2 type 2 00:00: [place] diabetes diabetes 00 [facility] mellitus mellitus Branch OSCAR (acute OSCAR (acute Disease Active 2019- U nivers kidney kidney 3-17 ity of injury) injury) 00:00: [place] [facility] Fe Fe Disease Active 2019- Univers deficiency deficiency 3-17 it y of anemia anemia 00:00: [place] [facility] Hyperkalem Hyperkalem Disease Active 2020-0 U nivers ia ia 3-17 ity of 00:00: [place] [facility] SOB SOB Disease Active 2020-0 [...] ve urgency 2-05 it y of 00:00: [place] [facility] CHF CHF Disease Active 2020-0 Univers (congestiv (congestiv 2-04 it y of e heart e heart 00:00: [place] failure) failure) 00 [facility] Branch CHF CHF Disease Active 2020-0 Univers exacerbati exacerbati 2-04 it y of on on 00:00: [place] [facility] Anemia, Anemia, Disease Active Overview: Univ ers unspecifie unspecifie 9-11 Formattin ity of d type d type 00:00: g of this [place] 00 note Medical might be Branch different from the original. Added automatic ally from request for surgery [id number] Dysphagia, Dysphagia, Disease Active Overview : Univers unspecifie unspecifie 9-11 Formattin ity of d type d type 00:00: g of this 00 note Medical might be Branch different from the original. Added automatic ally from request for surgery [id number] Atrial Atrial Disease Active Univers flutter flutter [...] 00:00: [place] involving involving 00 Medi [place] coronary coronary artery of artery of [place] heart with heart with angina angina pectoris pectoris HTN HTN Disease Active Univers (hypertens (hypertens 4-02 it y of ion) ion) 00:00: 00 Medical Branch HLD HLD Disease Active Univers (hyperlipi (hyperlipi 10-14 it y of demia) demia) 00:00: [place] 00 Medical Branch Type 2 Type 2 Disease Active Univers diabetes diabetes 4-02 ity of mellitus mellitus 00:00: [place] without without 00 Medical complicati complicati Br anch on on Pneumonia Pneumonia Disease Active Uni vers 4-01 ity of 00:00: [place] 00 Medical Branch NSTEMI NSTEMI Disease Active Univers (non-ST (non-ST 3-05 ity of elevated elevated 00:00: [place] myocardial myocardial 00 Me dical infarction infarction Br anch ) ) History of History of Disease Active U nivers CT CT 3-01 ity of (myocardia (myocardia 00:[place] 00 Medical infarction infarction Br anch ) ) Foreign Foreign Disease Active Univers body in body in 2-20 ity of foot, left foot, left 00:00[place] Left foot Left foot Disease Active 2018-0 Uni vers infection infection 2-19 ity of [...] Active Uni vers 2-16 ity of 00:00: [place] [facility] History of History of Problem [...] [place] pancreatic cancer Physici ans Brother Cancer [facility] Father Coronary Heart Disease Un iversity of [facility] Father Diabetes [facility] Father Hypertension University o f [facility] Mother Jose [facility] [place] disease [facility] Branch Mother Cancer [facility] Mother Coronary Heart Disease Un iversity of [facility] Mother Diabetes [facility] Mother Heart [facility] Mother Hypertension University o f [facility] Sister Cancer [facility] Social History Social Habit Start Date Stop Date Quantity Comments Source Exposure to Not sure University of SARS-CoV-2 (event) [place] [facility] History SDOH University o f Alcohol Frequency [facility] edical Branch History SDCA University o f Alcohol Std Drinks [place] [facility] History SDCA University o f Alcohol Binge [facility] Branch History of tobacco Cigarette Smoker University of use [facility] Alcohol intake 2020-05-03 2020-05-03 Current drinker Unive rsity of 00:00:00 00:00:00 of alcohol [place] [facility] (finding) Branch History SDOH 2019-09-30 2019-09-30 3 University o f Financial 00:00:00 00:00:00 [place] [facility] History SDOH Food 2019-09-30 2019-09-30 1 Univers ity of Worry 00:00:00 00:00:00 [place] [facility] History SDOH Food 2019-09-30 2019-09-30 1 Univers ity of Scarcity 00:00:00 00:00:00 [place] [facility] History SDOH 2019-09-30 2019-09-30 2 University o f Transport Med 00:00:00 00:00:00 [facility] Branch History SDOH 2019-09-30 2019-09-30 2 University o f Transport Non-Med 00:00:00 00:00:00 [place] M edical Branch Education 2019-09-29 2019-09-29 13 University of 00:00:00 00:00:00 [facility] Tobacco use and 2019-09-29 2019-09-29 Never used Universit y of exposure 00:00:00 00:00:00 [facility] Cigarettes smoked 2019-09-29 2019-09-29 Univers ity of current (pack per 00:00:00 00:00:00 [facility]) - Reported Branch Cigarette 2019-09-29 2019-09-29 University of pack-years 00:00:00 00:00:00 [facility] Tobacco Comment 2018-04-03 2018-04-03 2-2.5 PPD X 40 Unive rsity of 00:00:00 00:00:00 years, down to [facility] lizzy 1PPD since Branch 02/2018 Alcohol Comment 2018-04-03 2018-04-03 quit5 years ago Univ ersity of 00:00:00 00:00:00 [facility] Sex [birth year] Universit y of 00:00:00 00:00:00 [facility] Smoking Status Start Date Stop Date Source Ex-smoker (finding) University o f [place] [facility] Current every day smoker 2019-09-28 00:00:00 Uni versity of [facility] Medications Ordered Filled Start Stop Current Ordering Indication Dosage Frequency Signature Comments Components Source Medication Medication Date Date Medication? Clinician (SIG) Name Name metoprolol Yes [id number] 25mg Take 25 mg Univers tartrate 75 4-29 through ity o f mg Tab 00:00: enteral [place] 00 tube 2 Medical (two) Branch times daily. metoprolol Yes [id number] 25mg Take 25 mg Univers tartrate 75 4-29 through ity o f mg Tab 00:00: enteral [place] 00 tube 2 Medical (two) Branch times daily. metoprolol Yes [id number] 100mg Take 1 Univers tartrate 4-29 tablet ity of 100 mg 00:00: through [place] tablet 00 enteral Medical tube 2 Branch (two) times daily. metoprolol Yes [id number] 25mg Take 25 mg Univers tartrate 75 4-29 through ity o f mg Tab 00:00: enteral [place] 00 tube 2 Medical (two) Branch times daily. metoprolol 2020-0 Yes [id number] 100mg Take 1 Univers tartrate 4-29 tablet ity of 100 mg 00:00: through [place] tablet 00 enteral Medical tube 2 Branch (two) times daily. metoprolol 2020-0 Yes [id number] 25mg Take 25 mg Univers tartrate 75 4-29 through ity o f mg Tab 00:00: enteral [place] 00 tube 2 Medical (two) Branch times daily. metoprolol 2020-0 Yes [id number] 100mg Take 1 Univers tartrate 4-29 tablet ity of 100 mg 00:00: through [place] tablet 00 enteral Medical tube 2 Branch (two) times daily. metoprolol 2020-0 Yes [id number] 25mg Take 25 mg Univers tartrate 75 4-29 through ity o f mg Tab 00:00: enteral [place] 00 tube 2 Medical (two) Branch times daily. metoprolol 2020-0 Yes [id number] 100mg Take 1 Univers tartrate 4-29 tablet ity of 100 mg 00:00: through [place] tablet 00 enteral Medical tube 2 Branch (two) times daily. metoprolol 2020-0 Yes [id number] 25mg Take 25 mg Univers tartrate 75 4-29 through ity o f mg Tab 00:00: enteral [place] 00 tube 2 Medical (two) Branch times daily. metoprolol 2020-0 Yes [id number] 100mg Take 1 Univers tartrate 4-29 tablet ity of 100 mg 00:00: through [place] tablet 00 enteral Medical tube 2 Branch (two) times daily. metoprolol 2020-0 Yes [id number] 25mg Take 25 mg Univers tartrate 75 4-29 through ity o f mg Tab 00:00: enteral [place] 00 tube 2 Medical (two) Branch times daily. metoprolol 2020-0 Yes [id number] 100mg Take 1 Univers tartrate 4-29 tablet ity of 100 mg 00:00: through [place] tablet 00 enteral Medical tube 2 Branch (two) times daily. metoprolol 2020-0 Yes [id number] 25mg Take 25 mg Univers tartrate 75 4-29 through ity o f mg Tab 00:00: enteral [place] 00 tube 2 Medical (two) Branch times daily. metoprolol 2020-0 Yes [id number] 100mg Take 1 Univers tartrate 4-29 tablet ity of 100 mg 00:00: through [place] tablet 00 enteral Medical tube 2 Branch (two) times daily. sennosides- Yes [id number] 1{tbl} Take 1 Univers docusate 4-28 tablet ity of sodium 00:00: through [place] 8.6-50 mg 00 enteral Medical per tablet tube Branch daily. lidocaine 5 Yes [id number] 1{patch Apply 1 Univers % (700 4-28 } Patch to ity of mg/patch) 00:00: area(s) [place] patch 00 daily. Medical Branch ferrous Yes [id number] 300mg Take 5 mL Univers sulfate 300 4-28 through ity o f mg (60 mg 00:00: enteral [place] iron)/5 mL 00 tube every Med ical solution other day. [facility] h sennosides- Yes [id number] 1{tbl} Take 1 Univers docusate 4-28 tablet ity of sodium 00:00: through [place] 8.6-50 mg 00 enteral Medical per tablet tube Branch daily. lidocaine 5 Yes [id number] 1{patch Apply 1 Univers % (700 4-28 } Patch to ity of mg/patch) 00:00: area(s) [place] patch 00 daily. Medical Branch esomeprazol Yes [id number] 40mg Take 40 mg Univers e (NEXIUM 4-28 1 by mouth ity of PACKET) 40 00:00: daily with [place] mg packet [address] [facility] sennosides- Yes [id number] 1{tbl} Take 1 Univers docusate 4-28 tablet ity of sodium 00:00: through [place] 8.6-50 mg 00 enteral Medical per tablet tube Branch daily. lidocaine 5 Yes [id number] 1{patch Apply 1 Univers % (700 4-28 } Patch to ity of mg/patch) 00:00: area(s) [place] patch 00 daily. Medical Branch esomeprazol Yes [id number] 40mg Take 40 mg Univers e (NEXIUM 4-28 1 by mouth ity of PACKET) 40 00:00: daily with [place] mg packet [address] [facility] sennosides- Yes [id number] 1{tbl} Take 1 Univers docusate 4-28 tablet ity of sodium 00:00: through [place] 8.6-50 mg 00 enteral Medical per tablet tube Branch daily. lidocaine 5 Yes [id number] 1{patch Apply 1 Univers % (700 4-28 } Patch to ity of mg/patch) 00:00: area(s) [place] patch 00 daily. Medical Branch esomeprazol Yes [id number] 40mg Take 40 mg Univers e (NEXIUM 4-28 1 by mouth ity of PACKET) 40 00:00: daily with [place] mg packet 00 breakfast. [facility]- Yes [id number] 1{tbl} Take 1 Univers docusate 4-28 tablet ity of sodium 00:00: through [place] 8.6-50 mg 00 enteral Medical per tablet tube Branch daily. lidocaine 5 Yes [id number] 1{patch Apply 1 Univers % (700 4-28 } Patch to ity of mg/patch) 00:00: area(s) [place] patch 00 daily. Medical Branch esomeprazol Yes [id number] 40mg Take 40 mg Univers e (NEXIUM 4-28 1 by mouth ity of PACKET) 40 00:00: daily with [place] mg packet 00 breakfast. [facility]- Yes [id number] 1{tbl} Take 1 Univers docusate 4-28 tablet ity of sodium 00:00: through [place] 8.6-50 mg 00 enteral Medical per tablet tube Branch daily. lidocaine 5 Yes [id number] 1{patch Apply 1 Univers % (700 4-28 } Patch to ity of mg/patch) 00:00: area(s) [place] patch 00 daily. Medical Branch esomeprazol Yes [id number] 40mg Take 40 mg Univers e (NEXIUM 4-28 1 by mouth ity of PACKET) 40 00:00: daily with [place] mg packet 00 breakfast. [facility]- Yes [id number] 1{tbl} Take 1 Univers docusate 4-28 tablet ity of sodium 00:00: through [place] 8.6-50 mg 00 enteral Medical per tablet tube Branch daily. lidocaine 5 Yes [id number] 1{patch Apply 1 Univers % (700 4-28 } Patch to ity of mg/patch) 00:00: area(s) [place] patch 00 daily. Medical Branch esomeprazol Yes [id number] 40mg Take 40 mg Univers e (NEXIUM 4-28 1 by mouth ity of PACKET) 40 00:00: daily with [place] mg packet 00 breakfast. [facility]- Yes [id number] 1{tbl} Take 1 Univers docusate 4-28 tablet ity of sodium 00:00: through [place] 8.6-50 mg 00 enteral Medical per tablet tube Branch daily. lidocaine 5 2020- Yes [id number] 1{patch Apply 1 Univers % (700 4-28 } Patch to ity of mg/patch) 00:00: area(s) [place] patch 00 daily. Medical Branch esomeprazol Yes [id number] 40mg Take 40 mg Univers e (NEXIUM 4-28 1 by mouth ity of PACKET) 40 00:00: daily with [place] mg packet 00 breakfast. [facility]- Yes [id number] 1{tbl} Take 1 Univers docusate 4-28 tablet ity of sodium 00:00: through [place] 8.6-50 mg 00 enteral Medical per tablet tube Branch daily. lidocaine 5 Yes [id number] 1{patch Apply 1 Univers % (700 4-28 } Patch to ity of mg/patch) 00:00: area(s) [place] patch 00 daily. Medical Branch esomeprazol Yes [id number] 40mg Take 40 mg Univers e (NEXIUM 4-28 1 by mouth ity of PACKET) 40 00:00: daily with [place] mg packet 00 breakfast. [facility]- Yes [id number] 1{tbl} Take 1 Univers docusate 4-28 tablet ity of sodium 00:00: through [place] 8.6-50 mg 00 enteral Medical per tablet tube Branch daily. lidocaine 5 2020- Yes [id number] 1{patch Apply 1 Univers % (700 4-28 } Patch to ity of mg/patch) 00:00: area(s) [place] patch 00 daily. Medical Branch esomeprazol Yes [id number] 40mg Take 40 mg Univers e (NEXIUM 4-28 1 by mouth ity of PACKET) 40 00:00: daily with [place] mg packet 00 breakfast. [facility]- Yes [id number] 1{tbl} Take 1 Univers docusate 4-28 tablet ity of sodium 00:00: through [place] 8.6-50 mg 00 enteral Medical per tablet tube Branch daily. lidocaine 5 Yes [id number] 1{patch Apply 1 Univers % (700 4-28 } Patch to ity of mg/patch) 00:00: area(s) [place] patch 00 daily. Medical Branch esomeprazol Yes [id number] 40mg Take 40 mg Univers e (NEXIUM 4-28 1 by mouth ity of PACKET) 40 00:00: daily with [place] mg packet 00 breakfast. [facility]- Yes [id number] 1{tbl} Take 1 Univers docusate 4-28 tablet ity of sodium 00:00: through [place] 8.6-50 mg 00 enteral Medical per tablet tube Branch daily. lidocaine 5 2020- Yes [id number] 1{patch Apply 1 Univers % (700 4-28 } Patch to ity of mg/patch) 00:00: area(s) [place] patch 00 daily. Medical Branch esomeprazol Yes [id number] 40mg Take 40 mg Univers e (NEXIUM 4-28 1 by mouth ity of PACKET) 40 00:00: daily with [place] mg packet [address] [facility] ferrous 2020- No [id number] 220mg Take 5 mL Univers sulfate 220 11-09- 1 by mouth 3 i ty of mg (44 mg 00:00: 04:59 (three) [place] iron)/5 mL 00 :00 times Medical solution daily with Branc h meals for 30 days. gabapentin 2020- No [id number] 300mg Take 6 mL Univers 250 mg/5 mL 11-09- through ity of solution 00:00: 04:59 enteral [place] 00 :00 tube 3 Medical (three) Branch times daily for 30 days. ferrous 2020- No [id number] 220mg Take 5 mL Univers sulfate 220 11-09- 1 by mouth 3 i ty of mg (44 mg 00:00: 04:59 (three) [place] iron)/5 mL 00 :00 times Medical solution daily with Branc h meals for 30 days. gabapentin 2020- No [id number] 300mg Take 6 mL Univers 250 mg/5 mL 11-09 through ity of solution 00:00: 04:59 enteral [place] 00 :00 tube 3 Medical (three) Branch times daily for 30 days. ferrous 2020- No [id number] 220mg Take 5 mL Univers sulfate 220 11-09 1 by mouth 3 i ty of mg (44 mg 00:00: 04:59 (three) [place] iron)/5 mL 00 :00 times Medical solution daily with Branc h meals for 30 days. gabapentin 2020- No [id number] 300mg Take 6 mL Univers 250 mg/5 mL 11-09 through ity of solution 00:00: 04:59 enteral [place] 00 :00 tube 3 Medical (three) Branch times daily for 30 days. ferrous 2020- No [id number] 220mg Take 5 mL Univers sulfate 220 11-09 1 by mouth 3 i ty of mg (44 mg 00:00: 04:59 (three) [place] iron)/5 mL 00 :00 times Medical solution daily with Branc h meals for 30 days. gabapentin 2020- No [id number] 300mg Take 6 mL Univers 250 mg/5 mL 11-09 through ity of solution 00:00: 04:59 enteral [place] 00 :00 tube 3 Medical (three) Branch times daily for 30 days. ferrous 2020- No [id number] 220mg Take 5 mL Univers sulfate 220 11-09 1 by mouth 3 i ty of mg (44 mg 00:00: 04:59 (three) [place] iron)/5 mL 00 :00 times Medical solution daily with Branc h meals for 30 days. gabapentin 2020- No [id number] 300mg Take 6 mL Univers 250 mg/5 mL 11-09- through ity of solution 00:00: 04:59 enteral [place] 00 :00 tube 3 Medical (three) Branch times daily for 30 days. ferrous 2020- No [id number] 220mg Take 5 mL Univers sulfate 220 11-09- 1 by mouth 3 i ty of mg (44 mg 00:00: 04:59 (three) [place] iron)/5 mL 00 :00 times Medical solution daily with Branc h meals for 30 days. gabapentin 2020- No [id number] 300mg Take 6 mL Univers 250 mg/5 mL 11-09- through ity of solution 00:00: 04:59 enteral [place] 00 :00 tube 3 Medical (three) Branch times daily for 30 days. ferrous 2020- No [id number] 220mg Take 5 mL Univers sulfate 220 11-09- 1 by mouth 3 i ty of mg (44 mg 00:00: :59 (three) [place] iron)/5 mL 00 :00 times Medical solution daily with Branc h meals for 30 days. gabapentin 2020- No [id number] 300mg Take 6 mL Univers 250 mg/5 mL 11-09 through ity of solution 00:00: 04:59 enteral [place] 00 :00 tube 3 Medical (three) Branch times daily for 30 days. ferrous 2020- No [id number] 220mg Take 5 mL Univers sulfate 220 11-09 1 by mouth 3 i ty of mg (44 mg 00:00: 04:59 (three) [place] iron)/5 mL 00 :00 times Medical solution daily with Branc h meals for 30 days. gabapentin 2020- No [id number] 300mg Take 6 mL Univers 250 mg/5 mL 11-09- through ity of solution 00:00: 04:59 enteral [place] 00 :00 tube 3 Medical (three) Branch times daily for 30 days. ferrous 2020- No [id number] 300mg Take 5 mL Univers sulfate 300 11-09- through ity of mg (60 mg 00:00: 00:00 [place] iron)/5 mL 00 :00 tube every Med ical solution other day. Branc h escitalopra 2020- No 20mg Take 20 mg Univers m oxalate 11-08 by mouth ity o f 20 mg 19:31: 00:00 daily. [place] tablet 00 :00 [facility] traZODone 2020- No 100mg Take 100 Un michael 100 mg 11-08- mg by ity of tablet 19:31: 00:00 mouth at [place] 00 :00 bedtime. [facility] escitalopra 2020- No 20mg Take 20 mg Univers m oxalate 11-08 by mouth ity o f 20 mg 19:31: 00:00 daily. [place] tablet 00 :00 [facility] traZODone 2020- No 100mg Take 100 Un michael 100 mg 11-08- mg by ity of tablet 19:31: 00:00 mouth at [place] 00 :00 bedtime. [facility] cranberry 2020- No 1{tbl} Take 1 Uni vers fruit 11-08 tablet by ity of (CRANBERRY) 19:30: 00:00 [place] 450 mg Tab 59 :00 daily. [facility] cranberry 2020- No 1{tbl} Take 1 Uni vers fruit 11-08- tablet by ity of (CRANBERRY) 19:30: 00:00 [place] 450 mg Tab 59 :00 daily. [facility] Branch sodium Yes 4mL 4 mL, Univers chloride 7% 11-08 Inhalation it y of (HYPER-JOSE) 14:45: , BID, [place] nebulizer 00 First dose Medi lizzy solution 4 on Sat [place] mL 11/08/20 at 0945, Until Discontinu ed, Routine lidocaine Yes 1{patch 1 Patch, U nivers (LIDODERM) 11-08 } Topical, ity o f 5 % (700 14:00: Administer You as mg/patch) 00 over 12 Medical patch 1 Hours, Branch Patch DAILY, First dose on Sat11/08/20 at 0900, Until Discontinu ed, Routine acetaminoph Yes [id number] 325mg Take 10.25 Univers en 160 mg/5 - mL through it y of mL liquid 00:00: enteral [place] 00 tube every Medical 6 (six) Branch hours as needed (pain, fever). metoprolol 0 Yes [id number] 100mg Take 10 mL Univers 10 mg/mL 4-27 through ity of 00:00: enteral [place] 00 tube every Medical 12 Branch (twelve) hours. pantoprazol 0 Yes [id number] 40mg Take 2 Univers e 20 mg EC 4-27 tablets by ity of tablet 00:00: mouth 00 daily. Medical Branch pantoprazol 0 Yes [id number] 40mg Take 20 mL Univers e 4-27 through ity of (PROTONIX) 00:00: [place] 2 mg/mL 00 tube Medical oral daily. Branch suspension amLODIPine Yes [id number] 5mg Take 1 Univers 5 mg tablet 4-27 tablet ity of 00:00: through [place] 00 enteral Medical tube Branch daily. calcitrioL Yes [id number] .5ug Take 1 Univers 0.5 mcg 4-27 capsule by ity of capsule 00:00: mouth [place] 00 daily. Medical Branch clopidogreL 0 Yes [id number] 75mg Take 1 Univers 75 mg 4-27 tablet ity of tablet 00:00: through [place] 00 enteral Medical tube Branch daily. escitalopra Yes [id number] 20mg Take 1 Univers m oxalate 4-27 tablet ity of 20 mg 00:00: through [place] tablet 00 enteral Medical tube Branch daily. furosemide 0 Yes [id number] 40mg Take 1 Univers 40 mg 4-27 tablet by ity of tablet 00:00: mouth [place] 00 every Medical morning Branch and evening. metFORMIN 0 Yes [id number] 500mg Take 1 Univers 500 mg 4-27 tablet ity of tablet 00:00: through [place] 00 enteral Medical tube 2 Branch (two) times daily with meals. ondansetron 0 Yes [id number] 4mg Take 1 Univers (ZOFRAN 4-27 tablet by ity of ODT) 4 mg 00:00: mouth [place] disintegrat 00 every 8 Medic al ing tablet (eight) Branch hours as needed for Nausea and Vomiting (N/V). traZODone 0 Yes [id number] 100mg Take 1 Univers 100 mg 4-27 tablet ity of tablet 00:00: through [place] 00 enteral Medical tube at Branch bedtime. aspirin 81 2020-0 Yes [id number] 81mg Take 1 Univers mg chewable 4-27 tablet ity of tablet 00:00: through enteral Medical tube Branch daily. atorvastati 2020-0 Yes [id number] 80mg Take 1 Univers n 80 mg 4-27 tablet ity of tablet 00:00: through enteral Medical tube at Branch bedtime. gabapentin 2020-0 Yes [id number] 300mg Take 6 mL [facility] 250 mg/5 mL 4-27 through ity o f solution 00:00: enteral 00 tube 3 Medical (three) Branch times daily. ipratropium 2020-0 Yes [id number] 3mL Inhale 3 [facility] -albuteroL 4-27 mL every 6 ity of 0.5 mg-3 00:00: (six) [place] mg(2.5 mg 00 hours as Medica l base)/3 mL needed for [facility] nebulizer Wheezing solution or Shortness of Breath. acetaminoph 0 Yes [id number] 325mg Take 10.25 [facility] en 160 mg/5 4-27 mL through it y of mL liquid 00:00: enteral tube every Medical 6 (six) Branch hours as needed (pain, fever). metoprolol 2020-0 Yes [id number] 100mg Take 10 mL [facility] 10 mg/mL 4-27 through ity of 00:00: enteral 00 tube every Medical 12 Branch (twelve) hours. pantoprazol 2020-0 Yes [id number] 40mg Take 2 [facility] e 20 mg EC 4-27 tablets by ity of tablet 00:00: mouth daily. Medical Branch amLODIPine 2020-0 Yes [id number] 5mg Take 1 [facility] 5 mg tablet 4-27 tablet ity of 00:00: through enteral Medical tube Branch daily. calcitrioL 2020-0 Yes [id number] .5ug Take 1 [facility] 0.5 mcg 4-27 capsule by ity of capsule 00:00: mouth daily. Medical Branch clopidogreL 2020-0 Yes [id number] 75mg Take 1 [facility] 75 mg 4-27 tablet ity of tablet 00:00: through enteral Medical tube Branch daily. escitalopra 2020-0 Yes [id number] 20mg Take 1 [facility] m oxalate 4-27 tablet ity of 20 mg 00:00: through [place] tablet 00 enteral Medical tube Branch daily. furosemide 0 Yes [id number] 40mg Take 1 [facility] 40 mg 4-27 tablet by ity of tablet 00:00: mouth [place] 00 every Medical morning Branch and evening. metFORMIN 0 Yes [id number] 500mg Take 1 [facility] 500 mg 4-27 tablet ity of tablet 00:00: through [place] 00 enteral Medical tube 2 Branch (two) times daily with meals. ondansetron 0 Yes [id number] 4mg Take 1 [facility] (ZOFRAN 4-27 tablet by ity of ODT) 4 mg 00:00: mouth [place] disintegrat 00 every 8 Medic al ing tablet (eight) Branch hours as needed for Nausea and Vomiting (N/V). traZODone 0 Yes [id number] 100mg Take 1 [facility] 100 mg 4-27 tablet ity of tablet 00:00: through [place] 00 enteral Medical tube at Branch bedtime. aspirin 81 0 Yes [id number] 81mg Take 1 [facility] mg chewable 4-27 tablet ity of tablet 00:00: through [place] 00 enteral Medical tube Branch daily. atorvastati 0 Yes [id number] 80mg Take 1 [facility] n 80 mg 4-27 tablet ity of tablet 00:00: through [place] 00 enteral Medical tube at Branch bedtime. ipratropium 0 Yes [id number] 3mL Inhale 3 [facility] -albuteroL 4-27 mL every 6 ity of 0.5 mg-3 00:00: (six) [place] mg(2.5 mg 00 hours as Medica l base)/3 mL needed for [facility] nebulizer Wheezing solution or Shortness of Breath. acetaminoph 0 Yes [id number] 325mg Take 10.25 [facility] en 160 mg/5 4-27 mL through it y of mL liquid 00:00: enteral [place] 00 tube every Medical 6 (six) Branch hours as needed (pain, fever). metoprolol 0 Yes [id number] 100mg Take 10 mL [facility] 10 mg/mL 4-27 through ity of 00:00: enteral [place] 00 tube every Medical 12 Branch (twelve) hours. pantoprazol 0 Yes [id number] 40mg Take 2 [facility] e 20 mg EC 4-27 tablets by ity of tablet 00:00: mouth [place] 00 daily. Medical Branch amLODIPine 0 Yes [id number] 5mg Take 1 [facility] 5 mg tablet 4-27 tablet ity of 00:00: through [place] enteral Medical tube Branch daily. calcitrioL Yes [id number] .5ug Take 1 [facility] 0.5 mcg 4-27 capsule by ity of capsule 00:00: mouth [place] 00 daily. Medical Branch clopidogreL Yes [id number] 75mg Take 1 [facility] 75 mg 4-27 tablet ity of tablet 00:00: through [place] enteral Medical tube Branch daily. escitalopra Yes [id number] 20mg Take 1 [facility] m oxalate 4-27 tablet ity of 20 mg 00:00: through [facility] 00 enteral Medical tube Branch daily. furosemide Yes [id number] 40mg Take 1 [facility] 40 mg 4-27 tablet by ity of tablet 00:00: mouth [place] 00 every Medical morning Branch and evening. metFORMIN Yes [id number] 500mg Take 1 [facility] 500 mg 4-27 tablet ity of tablet 00:00: through [place] enteral Medical tube 2 Branch (two) times daily with meals. ondansetron Yes [id number] 4mg Take 1 [facility] (ZOFRAN 4-27 tablet by ity of ODT) 4 mg 00:00: mouth [place] disintegrat 00 every 8 Medic al ing tablet (eight) Branch hours as needed for Nausea and Vomiting (N/V). traZODone 0 Yes [id number] 100mg Take 1 [facility] 100 mg 4-27 tablet ity of tablet 00:00: through [place] 00 enteral Medical tube at Branch bedtime. aspirin 81 0 Yes [id number] 81mg Take 1 [facility] mg chewable 4-27 tablet ity of tablet 00:00: through [place] 00 enteral Medical tube Branch daily. atorvastati Yes [id number] 80mg Take 1 [facility] n 80 mg 4-27 tablet ity of tablet 00:00: through [place] enteral Medical tube at Branch bedtime. ipratropium 0 Yes [id number] 3mL Inhale 3 [facility] -albuteroL 4-27 mL every 6 ity of 0.5 mg-3 00:00: (six) [place] mg(2.5 mg 00 hours as Medica l base)/3 mL needed for [facility] nebulizer Wheezing solution or Shortness of Breath. acetaminoph Yes [id number] 325mg Take 10.25 [facility] en 160 mg/5 4-27 mL through it y of mL liquid 00:00: enteral [place] 00 tube every Medical 6 (six) Branch hours as needed (pain, fever). pantoprazol Yes [id number] 40mg Take 2 [facility] e 20 mg EC 4-27 tablets by ity of tablet 00:00: mouth [place] 00 daily. Medical Branch amLODIPine Yes [id number] 5mg Take 1 [facility] 5 mg tablet 4-27 tablet ity of 00:00: through [place] enteral Medical tube Branch daily. calcitrioL Yes [id number] .5ug Take 1 [facility] 0.5 mcg 4-27 capsule by ity of capsule 00:00: mouth [place] 00 daily. Medical Branch clopidogreL Yes [id number] 75mg Take 1 [facility] 75 mg 4-27 tablet ity of tablet 00:00: through [place] 00 enteral Medical tube Branch daily. escitalopra Yes [id number] 20mg Take 1 [facility] m oxalate 4-27 tablet ity of 20 mg 00:00: through [facility] 00 enteral Medical tube Branch daily. furosemide Yes [id number] 40mg Take 1 [facility] 40 mg 4-27 tablet by ity of tablet 00:00: mouth [place] 00 every Medical morning Branch and evening. metFORMIN Yes [id number] 500mg Take 1 [facility] 500 mg 4-27 tablet ity of tablet 00:00: through [place] 00 enteral Medical tube 2 Branch (two) times daily with meals. ondansetron 0 Yes [id number] 4mg Take 1 [facility] (ZOFRAN 4-27 tablet by ity of ODT) 4 mg 00:00: mouth [place] disintegrat 00 every 8 Medic al ing tablet (eight) Branch hours as needed for Nausea and Vomiting (N/V). traZODone 0 Yes [id number] 100mg Take 1 [facility] 100 mg 4-27 tablet ity of tablet 00:00: through [place] 00 enteral Medical tube at Branch bedtime. aspirin 81 2021-0 Yes [id number] 81mg Take 1 [facility] mg chewable 4-27 tablet ity of tablet 00:00: through [place] enteral Medical tube Branch daily. atorvastati 2020-0 Yes [id number] 80mg Take 1 [facility] n 80 mg 4-27 tablet ity of tablet 00:00: through enteral Medical tube at Branch bedtime. ipratropium 2020-0 Yes [id number] 3mL Inhale 3 [facility] -albuteroL 4-27 mL every 6 ity of 0.5 mg-3 00:00: (six) [place] mg(2.5 mg 00 hours as Medica l base)/3 mL needed for [facility] nebulizer Wheezing solution or Shortness of Breath. acetaminoph 2020-0 Yes [id number] 325mg Take 10.25 [facility] en 160 mg/5 4-27 mL through it y of mL liquid 00:00: enteral [place] 00 tube every Medical 6 (six) Branch hours as needed (pain, fever). pantoprazol 2020-0 Yes [id number] 40mg Take 2 [facility] e 20 mg EC 4-27 tablets by ity of tablet 00:00: mouth daily. Medical Branch amLODIPine 2020-0 Yes [id number] 5mg Take 1 [facility] 5 mg tablet 4-27 tablet ity of 00:00: through [place] enteral Medical tube Branch daily. calcitrioL 2020-0 Yes [id number] .5ug Take 1 [facility] 0.5 mcg 4-27 capsule by ity of capsule 00:00: mouth [place] daily. Medical Branch clopidogreL 2020-0 Yes [id number] 75mg Take 1 [facility] 75 mg 4-27 tablet ity of tablet 00:00: through [place] enteral Medical tube Branch daily. escitalopra 2020-0 Yes [id number] 20mg Take 1 [facility] m oxalate 4-27 tablet ity of 20 mg 00:00: through [facility] 00 enteral Medical tube Branch daily. furosemide 2020-0 Yes [id number] 40mg Take 1 [facility] 40 mg 4-27 tablet by ity of tablet 00:00: mouth [place] 00 every Medical morning Branch and evening. metFORMIN 2020-0 Yes [id number] 500mg Take 1 [facility] 500 mg 4-27 tablet ity of tablet 00:00: through [place] enteral Medical tube 2 Branch (two) times daily with meals. ondansetron 0 Yes [id number] 4mg Take 1 [facility] (ZOFRAN 4-27 tablet by ity of ODT) 4 mg 00:00: mouth [place] disintegrat 00 every 8 Medic al ing tablet (eight) Branch hours as needed for Nausea and Vomiting (N/V). traZODone 0 Yes [id number] 100mg Take 1 [facility] 100 mg 4-27 tablet ity of tablet 00:00: through 00 enteral Medical tube at [place] bedtime. aspirin 81 2020-0 Yes [id number] 81mg Take 1 [facility] mg chewable 4-27 tablet ity of tablet 00:00: through enteral Medical tube Branch daily. atorvastati 0 Yes [id number] 80mg Take 1 [facility] n 80 mg 4-27 tablet ity of tablet 00:00: through enteral Medical tube at [place] bedtime. ipratropium 0 Yes [id number] 3mL Inhale 3 [facility] -albuteroL 4-27 mL every 6 ity of 0.5 mg-3 00:00: (six) [place] mg(2.5 mg 00 hours as Medica l base)/3 mL needed for [facility] nebulizer Wheezing solution or Shortness of Breath. acetaminoph 0 Yes [id number] 325mg Take 10.25 [facility] en 160 mg/5 4-27 mL through it y of mL liquid 00:00: enteral 00 tube every Medical 6 (six) Branch hours as needed (pain, fever). pantoprazol 0 Yes [id number] 40mg Take 2 [facility] e 20 mg EC 4-27 tablets by ity of tablet 00:00: mouth 00 daily. Medical Branch amLODIPine 2020-0 Yes [id number] 5mg Take 1 [facility] 5 mg tablet 4-27 tablet ity of 00:00: through enteral Medical tube Branch daily. calcitrioL 2020-0 Yes [id number] .5ug Take 1 [facility] 0.5 mcg 4-27 capsule by ity of capsule 00:00: mouth 00 daily. Medical Branch clopidogreL 2020-0 Yes [id number] 75mg Take 1 [facility] 75 mg 4-27 tablet ity of tablet 00:00: through enteral Medical tube Branch daily. escitalopra 2020-0 Yes [id number] 20mg Take 1 [facility] m oxalate 4-27 tablet ity of 20 mg 00:00: through [place] tablet 00 enteral Medical tube Branch daily. furosemide 2020-0 Yes [id number] 40mg Take 1 [facility] 40 mg 4-27 tablet by ity of tablet 00:00: mouth [place] 00 every Medical morning Branch and evening. metFORMIN 2020-0 Yes [id number] 500mg Take 1 [facility] 500 mg 4-27 tablet ity of tablet 00:00: through [place] 00 enteral Medical tube 2 Branch (two) times daily with meals. ondansetron 0 Yes [id number] 4mg Take 1 [facility] (ZOFRAN 4-27 tablet by ity of ODT) 4 mg 00:00: mouth [place] disintegrat 00 every 8 Medic al ing tablet (eight) Branch hours as needed for Nausea and Vomiting (N/V). traZODone 0 Yes [id number] 100mg Take 1 [facility] 100 mg 4-27 tablet ity of tablet 00:00: through [place] 00 enteral Medical tube at Branch bedtime. aspirin 81 2020-0 Yes [id number] 81mg Take 1 [facility] mg chewable 4-27 tablet ity of tablet 00:00: through [place] 00 enteral Medical tube Branch daily. atorvastati 0 Yes [id number] 80mg Take 1 [facility] n 80 mg 4-27 tablet ity of tablet 00:00: through 00 enteral Medical tube at Branch bedtime. ipratropium 2020-0 Yes [id number] 3mL Inhale 3 [facility] -albuteroL 4-27 mL every 6 ity of 0.5 mg-3 00:00: (six) [place] mg(2.5 mg 00 hours as Medica l base)/3 mL needed for [facility] nebulizer Wheezing solution or Shortness of Breath. acetaminoph 0 Yes [id number] 325mg Take 10.25 [facility] en 160 mg/5 4-27 mL through it y of mL liquid 00:00: enteral [place] 00 tube every Medical 6 (six) Branch hours as needed (pain, fever). pantoprazol 2020-0 Yes [id number] 40mg Take 2 [facility] e 20 mg EC 4-27 tablets by ity of tablet 00:00: mouth [place] 00 daily. Medical Branch amLODIPine 2020-0 Yes [id number] 5mg Take 1 [facility] 5 mg tablet 4-27 tablet ity of 00:00: through [place] enteral Medical tube Branch daily. calcitrioL Yes [id number] .5ug Take 1 [facility] 0.5 mcg 4-27 capsule by ity of capsule 00:00: mouth [place] 00 daily. Medical Branch clopidogreL 0 Yes [id number] 75mg Take 1 [facility] 75 mg 4-27 tablet ity of tablet 00:00: through [place] enteral Medical tube Branch daily. escitalopra Yes [id number] 20mg Take 1 [facility] m oxalate 4-27 tablet ity of 20 mg 00:00: through [place] tablet 00 enteral Medical tube Branch daily. furosemide Yes [id number] 40mg Take 1 [facility] 40 mg 4-27 tablet by ity of tablet 00:00: mouth [place] 00 every Medical morning Branch and evening. metFORMIN Yes [id number] 500mg Take 1 [facility] 500 mg 4-27 tablet ity of tablet 00:00: through [place] enteral Medical tube 2 Branch (two) times daily with meals. ondansetron Yes [id number] 4mg Take 1 [facility] (ZOFRAN 4-27 tablet by ity of ODT) 4 mg 00:00: mouth [place] disintegrat 00 every 8 Medic al ing tablet (eight) Branch hours as needed for Nausea and Vomiting (N/V). traZODone Yes [id number] 100mg Take 1 [facility] 100 mg 4-27 tablet ity of tablet 00:00: through [place] enteral Medical tube at Branch bedtime. aspirin 81 0 Yes [id number] 81mg Take 1 [facility] mg chewable 4-27 tablet ity of tablet 00:00: through [place] 00 enteral Medical tube Branch daily. atorvastati Yes [id number] 80mg Take 1 [facility] n 80 mg 4-27 tablet ity of tablet 00:00: through [place] enteral Medical tube at Branch bedtime. ipratropium 0 Yes [id number] 3mL Inhale 3 [facility] -albuteroL 4-27 mL every 6 ity of 0.5 mg-3 00:00: (six) [place] mg(2.5 mg 00 hours as Medica l base)/3 mL needed for [facility] nebulizer Wheezing solution or Shortness of Breath. acetaminoph Yes [id number] 325mg Take 10.25 [facility] en 160 mg/5 4-27 mL through it y of mL liquid 00:00: enteral [place] 00 tube every Medical 6 (six) Branch hours as needed (pain, fever). pantoprazol 0 Yes [id number] 40mg Take 2 [facility] e 20 mg EC 4-27 tablets by ity of tablet 00:00: mouth [place] 00 daily. Medical Branch amLODIPine Yes [id number] 5mg Take 1 [facility] 5 mg tablet 4-27 tablet ity of 00:00: through [place] 00 enteral Medical tube Branch daily. calcitrioL Yes [id number] .5ug Take 1 [facility] 0.5 mcg 4-27 capsule by ity of capsule 00:00: mouth [place] 00 daily. Medical Branch clopidogreL Yes [id number] 75mg Take 1 [facility] 75 mg 4-27 tablet ity of tablet 00:00: through [place] enteral Medical tube Branch daily. escitalopra Yes [id number] 20mg Take 1 [facility] m oxalate 4-27 tablet ity of 20 mg 00:00: through [facility] 00 enteral Medical tube Branch daily. furosemide Yes [id number] 40mg Take 1 [facility] 40 mg 4-27 tablet by ity of tablet 00:00: mouth [place] 00 every Medical morning Branch and evening. metFORMIN Yes [id number] 500mg Take 1 [facility] 500 mg 4-27 tablet ity of tablet 00:00: through [place] 00 enteral Medical tube 2 Branch (two) times daily with meals. ondansetron 0 Yes [id number] 4mg Take 1 [facility] (ZOFRAN 4-27 tablet by ity of ODT) 4 mg 00:00: mouth [place] disintegrat 00 every 8 Medic al ing tablet (eight) Branch hours as needed for Nausea and Vomiting (N/V). traZODone 0 Yes [id number] 100mg Take 1 [facility] 100 mg 4-27 tablet ity of tablet 00:00: through [place] 00 enteral Medical tube at Branch bedtime. aspirin 81 0 Yes [id number] 81mg Take 1 [facility] mg chewable 4-27 tablet ity of tablet 00:00: through [place] 00 enteral Medical tube Branch daily. atorvastati 0 Yes [id number] 80mg Take 1 [facility] n 80 mg 4-27 tablet ity of tablet 00:00: through [place] enteral Medical tube at Branch bedtime. ipratropium 0 Yes [id number] 3mL Inhale 3 [facility] -albuteroL 4-27 mL every 6 ity of 0.5 mg-3 00:00: (six) [place] mg(2.5 mg 00 hours as Medica l base)/3 mL needed for [facility] nebulizer Wheezing solution or Shortness of Breath. acetaminoph Yes [id number] 325mg Take 10.25 [facility] en 160 mg/5 4-27 mL through it y of mL liquid 00:00: enteral [place] 00 tube every Medical 6 (six) Branch hours as needed (pain, fever). pantoprazol 0 Yes [id number] 40mg Take 2 [facility] e 20 mg EC 4-27 tablets by ity of tablet 00:00: mouth [place] daily. Medical Branch amLODIPine 0 Yes [id number] 5mg Take 1 [facility] 5 mg tablet 4-27 tablet ity of 00:00: through [place] enteral Medical tube Branch daily. calcitrioL 0 Yes [id number] .5ug Take 1 [facility] 0.5 mcg 4-27 capsule by ity of capsule 00:00: mouth [place] daily. Medical Branch clopidogreL 0 Yes [id number] 75mg Take 1 [facility] 75 mg 4-27 tablet ity of tablet 00:00: through [place] enteral Medical tube Branch daily. escitalopra 0 Yes [id number] 20mg Take 1 [facility] m oxalate 4-27 tablet ity of 20 mg 00:00: through [facility] 00 enteral Medical tube Branch daily. furosemide 2020-0 Yes [id number] 40mg Take 1 [facility] 40 mg 4-27 tablet by ity of tablet 00:00: mouth [place] 00 every Medical morning Branch and evening. metFORMIN 2020-0 Yes [id number] 500mg Take 1 [facility] 500 mg 4-27 tablet ity of tablet 00:00: through [place] enteral Medical tube 2 Branch (two) times daily with meals. ondansetron 0 Yes [id number] 4mg Take 1 [facility] (ZOFRAN 4-27 tablet by ity of ODT) 4 mg 00:00: mouth [place] disintegrat 00 every 8 Medic al ing tablet (eight) Branch hours as needed for Nausea and Vomiting (N/V). traZODone 0 Yes [id number] 100mg Take 1 [facility] 100 mg 4-27 tablet ity of tablet 00:00: through enteral Medical tube at Branch bedtime. aspirin 81 2020-0 Yes [id number] 81mg Take 1 [facility] mg chewable 4-27 tablet ity of tablet 00:00: through enteral Medical tube Branch daily. atorvastati 0 Yes [id number] 80mg Take 1 [facility] n 80 mg 4-27 tablet ity of tablet 00:00: through enteral Medical tube at Branch bedtime. ipratropium 0 Yes [id number] 3mL Inhale 3 [facility] -albuteroL 4-27 mL every 6 ity of 0.5 mg-3 00:00: (six) [place] mg(2.5 mg 00 hours as Medica l base)/3 mL needed for [facility] nebulizer Wheezing solution or Shortness of Breath. acetaminoph Yes [id number] 325mg Take 10.25 [facility] en 160 mg/5 4-27 mL through it y of mL liquid 00:00: enteral [place] 00 tube every Medical 6 (six) Branch hours as needed (pain, fever). pantoprazol 0 Yes [id number] 40mg Take 2 [facility] e 20 mg EC 4-27 tablets by ity of tablet 00:00: mouth 00 daily. Medical Branch amLODIPine 2020-0 Yes [id number] 5mg Take 1 [facility] 5 mg tablet 4-27 tablet ity of 00:00: through enteral Medical tube Branch daily. calcitrioL 2020-0 Yes [id number] .5ug Take 1 [facility] 0.5 mcg 4-27 capsule by ity of capsule 00:00: mouth daily. Medical Branch clopidogreL 2020-0 Yes [id number] 75mg Take 1 [facility] 75 mg 4-27 tablet ity of tablet 00:00: through [place] enteral Medical tube Branch daily. escitalopra 2020-0 Yes [id number] 20mg Take 1 [facility] m oxalate 4-27 tablet ity of 20 mg 00:00: through [place] tablet 00 enteral Medical tube Branch daily. furosemide 2020-0 Yes [id number] 40mg Take 1 [facility] 40 mg 4-27 tablet by ity of tablet 00:00: mouth [place] 00 every Medical morning Branch and evening. metFORMIN 2020-0 Yes [id number] 500mg Take 1 [facility] 500 mg 4-27 tablet ity of tablet 00:00: through enteral Medical tube 2 Branch (two) times daily with meals. ondansetron 2020-0 Yes [id number] 4mg Take 1 [facility] (ZOFRAN 4-27 tablet by ity of ODT) 4 mg 00:00: mouth [place] disintegrat 00 every 8 Medic al ing tablet (eight) Branch hours as needed for Nausea and Vomiting (N/V). traZODone 2020-0 Yes [id number] 100mg Take 1 [facility] 100 mg 4-27 tablet ity of tablet 00:00: through [place] enteral Medical tube at Branch bedtime. aspirin 81 2020-0 Yes [id number] 81mg Take 1 [facility] mg chewable 4-27 tablet ity of tablet 00:00: through [place] enteral Medical tube Branch daily. atorvastati 2020-0 Yes [id number] 80mg Take 1 [facility] n 80 mg 4-27 tablet ity of tablet 00:00: through [place] enteral Medical tube at Branch bedtime. ipratropium 2020-0 Yes [id number] 3mL Inhale 3 [facility] -albuteroL 4-27 mL every 6 ity of 0.5 mg-3 00:00: (six) [place] mg(2.5 mg 00 hours as Medica l base)/3 mL needed for [facility] nebulizer Wheezing solution or Shortness of Breath. acetaminoph 2020-0 Yes [id number] 325mg Take 10.25 [facility] en 160 mg/5 4-27 mL through it y of mL liquid 00:00: enteral [place] 00 tube every Medical 6 (six) Branch hours as needed (pain, fever). pantoprazol 2020-0 Yes [id number] 40mg Take 2 [facility] e 20 mg EC 4-27 tablets by ity of tablet 00:00: mouth 00 daily. Medical Branch amLODIPine 2020-0 Yes [id number] 5mg Take 1 [facility] 5 mg tablet 4-27 tablet ity of 00:00: through [place] 00 enteral Medical tube Branch daily. calcitrioL 0 Yes [id number] .5ug Take 1 [facility] 0.5 mcg 4-27 capsule by ity of capsule 00:00: mouth [place] 00 daily. Medical Branch clopidogreL 2020-0 Yes [id number] 75mg Take 1 [facility] 75 mg 4-27 tablet ity of tablet 00:00: through [place] 00 enteral Medical tube Branch daily. escitalopra 0 Yes [id number] 20mg Take 1 [facility] m oxalate 4-27 tablet ity of 20 mg 00:00: through [facility] 00 enteral Medical tube Branch daily. furosemide 0 Yes [id number] 40mg Take 1 [facility] 40 mg 4-27 tablet by ity of tablet 00:00: mouth [place] 00 every Medical morning Branch and evening. metFORMIN 0 Yes [id number] 500mg Take 1 [facility] 500 mg 4-27 tablet ity of tablet 00:00: through [place] 00 enteral Medical tube 2 Branch (two) times daily with meals. ondansetron 0 Yes [id number] 4mg Take 1 [facility] (ZOFRAN 4-27 tablet by ity of ODT) 4 mg 00:00: mouth [place] disintegrat 00 every 8 Medic al ing tablet (eight) Branch hours as needed for Nausea and Vomiting (N/V). traZODone 0 Yes [id number] 100mg Take 1 [facility] 100 mg 4-27 tablet ity of tablet 00:00: through [place] 00 enteral Medical tube at Branch bedtime. aspirin 81 0 Yes [id number] 81mg Take 1 [facility] mg chewable 4-27 tablet ity of tablet 00:00: through [place] 00 enteral Medical tube Branch daily. atorvastati 0 Yes [id number] 80mg Take 1 [facility] n 80 mg 4-27 tablet ity of tablet 00:00: through [place] 00 enteral Medical tube at Branch bedtime. ipratropium 0 Yes [id number] 3mL Inhale 3 [facility] -albuteroL 4-27 mL every 6 ity of 0.5 mg-3 00:00: (six) [place] mg(2.5 mg 00 hours as Medica l base)/3 mL needed for [facility] nebulizer Wheezing solution or Shortness of Breath. acetaminoph 0 Yes [id number] 325mg Take 10.25 [facility] en 160 mg/5 4-27 mL through it y of mL liquid 00:00: enteral [place] 00 tube every Medical 6 (six) Branch hours as needed (pain, fever). pantoprazol 0 Yes [id number] 40mg Take 2 [facility] e 20 mg EC 4-27 tablets by ity of tablet 00:00: mouth [place] 00 daily. Medical Branch amLODIPine 2020-0 Yes [id number] 5mg Take 1 [facility] 5 mg tablet 4-27 tablet ity of 00:00: through [place] enteral Medical tube Branch daily. calcitrioL 2020-0 Yes [id number] .5ug Take 1 [facility] 0.5 mcg 4-27 capsule by ity of capsule 00:00: mouth [place] 00 daily. Medical Branch clopidogreL 0 Yes [id number] 75mg Take 1 [facility] 75 mg 4-27 tablet ity of tablet 00:00: through [place] enteral Medical tube Branch daily. escitalopra 0 Yes [id number] 20mg Take 1 [facility] m oxalate 4-27 tablet ity of 20 mg 00:00: through [facility] 00 enteral Medical tube Branch daily. furosemide Yes [id number] 40mg Take 1 [facility] 40 mg 4-27 tablet by ity of tablet 00:00: mouth [place] 00 every Medical morning Branch and evening. metFORMIN 0 Yes [id number] 500mg Take 1 [facility] 500 mg 4-27 tablet ity of tablet 00:00: through [place] 00 enteral Medical tube 2 Branch (two) times daily with meals. ondansetron 0 Yes [id number] 4mg Take 1 [facility] (ZOFRAN 4-27 tablet by ity of ODT) 4 mg 00:00: mouth [place] disintegrat 00 every 8 Medic al ing tablet (eight) Branch hours as needed for Nausea and Vomiting (N/V). traZODone 0 Yes [id number] 100mg Take 1 [facility] 100 mg 4-27 tablet ity of tablet 00:00: through [place] 00 enteral Medical tube at Branch bedtime. aspirin 81 2020-0 Yes [id number] 81mg Take 1 [facility] mg chewable 4-27 tablet ity of tablet 00:00: through [place] 00 enteral Medical tube Branch daily. atorvastati 2020-0 Yes [id number] 80mg Take 1 [facility] n 80 mg 4-27 tablet ity of tablet 00:00: through 00 enteral Medical tube at Branch bedtime. ipratropium Yes [id number] 3mL Inhale 3 [facility] -albuteroL 4-27 mL every 6 ity of 0.5 mg-3 00:00: (six) [place] mg(2.5 mg 00 hours as Medica l base)/3 mL needed for [facility] nebulizer Wheezing solution or Shortness of Breath. metoprolol 2020- No [id number] 100mg Take 10 mL [facility] 10 mg/mL 11-08 through ity of 00:00: 00:00 enteral [place] 00 :00 tube every Medical 12 Branch (twelve) hours. metoprolol 2020- No [id number] 100mg Take 10 mL Univers 10 mg/mL 11-08 through ity of 00:00: 00:00 enteral [place] 00 :00 tube every Medical 12 Branch (twelve) hours. pantoprazol 2020- No [id number] 40mg Take 20 mL Univers e 11-08 through ity of (PROTONIX) 00:00: 00:00 enteral You as 2 mg/mL 00 :00 tube Medical oral daily. Branch suspension gabapentin 2020- No [id number] 300mg Take 6 mL Univers 250 mg/5 [...] at 1615, Until Discontinu ed, Routine iohexoL 1- No [id number] 35mL 35 mL, Uni vers (OMNIPAQUE 11-07 Injection, it y of 300-50 mL)) 20:40: 21:03 TITRATE - [place] injection 00 :00 FOR Medical 35 mL PROCEDURE Branch USE, 1 dose, Starting Sat11/07/20 at 1540, Until Sat11/07/20 at 1603, Routine, Other ceFAZolin Yes Slow IV Unive rs (ANCEF) 11-07 Push, PRN, ity of injection 20:30: [place] 46 [facility] Medical 11/07/20 at [place] 1530, Until Discontinu ed, KATHY lidocaine Yes PRN, Univers 1% (PF) 11-07 Starting ity of (XYLOCAINE) 20:27: Mon [place] injection 00 11/07/20 at [facility] 1527, Branch Until Discontinu ed, Routine iohexol 2020- No [id number] 100mL 100 mL, Univers (OMNIPAQUE 11-07 Oral, ity of 350 BULK) 14:45: 14:00 ONCE, 1 [place] 100 mL 00 :00 dose, [facility] 11/07/20 at [place] 0945, KATHY gabapentin Yes 300mg 300 mg, Uni vers (NEURONTIN) 11-06 Enteral, ity of 250 mg/5 mL 01:00: TID, First [place] solution 00 dose on Medical 300 mg Sat [place] 11/05/20 at 2000, Until Discontinu ed, Routine HYDROcodone 2020- No 5mg 5 mg, Univ ers -acetaminop 11-05 Oral, ity of hen (HYCET) 20:07: 20:37 ONCE, 1 [place] 7.5-325 00 :00 dose, Sat Medical mg/15 mL 11/05/20 at [facility] h solution 5 1515, mg Routine acetaminoph Yes 325mg 325 mg, Un michael en 11-05 Enteral, ity of (TYLENOL) 20:06: Q6HPRN, [place] 160 mg/5 mL 54 Starting [facility] liquid 325 Sat [place] mg 11/05/20 at 1506, Until Discontinu ed, Routine, pain, fever Potassium 2020- No 20meq 20 mEq, Uni vers Bicarb-Citr 11-05 Enteral, ity of ic Acid 11:45: 14:22 ONCE, 1 [place] (EFFER-K) 00 :00 dose, Sat Medic al effervescen 11/05/20 at anch t tablet 20 0645, mEq Routine furosemide 2020- No 20mg 20 mg, Univ ers (LASIX) 11-04 Slow IV ity of injection 22:00: 23:28 Push, [place] 20 mg 00 :00 ONCE, 1 Medical dose, Sat [place] 11/04/20 at 1700, Routine metoprolol 2020- No 75mg 75 mg, Univ ers (LOPRESSOR) 11-04 Enteral, ity of 10 mg/mL 21:15: 18:40 Q12H ABX, You as oral 00 :26 First dose Medical suspension (after Branch 75 mg last modificati on) on Sat11/04/20 at 1615, Until Discontinu ed, Routine iohexol 2020- No [id number] 25mL 25 mL, Un michael (OMNIPAQUE 11-04 Oral, ity of 350 BULK) 14:30: 14:40 ONCE, 1 [place] 25 mL 00 :00 dose, [facility] 11/04/20 at Branch 0930, KATHY cranberry Yes 1{tbl} Take 1 Univ ers fruit 11-03 tablet by ity of (CRANBERRY) 23:40: mouth [place] 450 mg Tab 55 daily. [facility] Branch furosemide 2020- No 20mg 20 mg, Univ ers (LASIX) 11-03 Slow IV ity of injection 21:58: 22:08 Push, [place] 20 mg 00 :00 ONCE, 1 Medical dose, [facility] 11/03/20 at 1700, Routine metoprolol 2020- No [...] dose [place] mL 00 :17 on Sat [facility] 11/02/20 at Branch 2000, Until Discontinu ed, [...] of ic Acid 19:15: 20:52 ONCE, 1 [place] (EFFER-K) 00 :00 dose, Sat Medic al [...] Yes Topical, Un michael polymyxin B 11-01 [id number], ity of (POLYSPORIN 20:26: Starting [place] ) 41 Tue Medical 500-10,000 11/01/20 at [facility] unit/gram 1526, topical Until ointment Discontinu [...] 00 :39 CONTINUOUS Medical , Starting Branch [facility] 10/31/20 at 2215, Until Sat11/01/20 at 0803, Routine insulin Yes 14U 14 Units, Unive rs glargine 10-31 Subcutaneo ity o f (LANTUS 14:00: us, DAILY, [place] U-100) 00 First dose Medical injection (after Branch 14 Units last modificati on) on [facility] 10/31/20 at 0900, Until Discontinu ed, Routine Potassium 2020- No 40meq 40 mEq, Uni vers Bicarb-Citr 10-31 Enteral, ity of ic Acid 13:15: 13:13 ONCE, 1 [place] (EFFER-K) 00 :00 dose, [facility] Medic al effervescen 10/31/20 at Br anch t tablet 40 0815, mEq Routine furosemide 2020- No 20mg 20 mg, Univ ers (LASIX) 10-31 Slow IV ity of injection 05:45: 08:40 Push, [place] 20 mg 00 :00 ONCE, 1 Medical dose, [facility] 10/31/20 at 0045, Routine insulin Yes 4U 4 Units, Univer s lispro 10-30 Subcutaneo ity of (human) 22:00: us, TID [place] (HumaLOG 00 MEALS, Medical U-100) First dose Branch injection 4 (after Units last modificati on) on [place] 10/30/20 at 1700, Until Discontinu ed, Routine Sliding 2020- No Subcutaneo Uni vers Scale 10-30-20 us, Q4H, ity of Insulin - 21:00: 02:25 First dose [place] Lispro 00 :53 on [facility] (HumaLOG) + 10/30/20 at Br anch [...] (after Branch Units last modificati on) on [place] 10/30/20 at 0900, Until Discontinu ed, Routine metoprolol No 50mg 50 mg, Univ ers (LOPRESSOR) 10-30 Enteral, ity of 10 mg/mL 13:00: 16:55 BID, First [place] oral 00 :29 dose Medical suspension (after Branch 50 mg last modificati on) on [place] 10/30/20 at 0800, Until Discontinu ed, Routine insulin No 2U 2 Units, Unive rs lispro 10-30 Subcutaneo ity of (human) 13:00: 19:53 us, TID [place] (HumaLOG 00 :49 MEALS, Medical U-100) First dose Branch injection 2 on [place] Units 10/30/20 at 0800, Until Discontinu ed, Routine Potassium No 20meq 20 mEq, Uni vers Bicarb-Citr 10-30 Enteral, ity of ic Acid 07:15: 06:24 ONCE, 1 [place] (EFFER-K) 00 :00 dose, [place] Medic al effervescen 10/30/20 at Br anch [...] t tablet 40 0045, mEq Routine KCL No 40meq 40 mEq, IV Unive rs (POTASSIUM 10-29 Piggyback, it y of CHLORIDE) 04:30: 04:33 ONCE, 1 [place] 40 mEq in 00 :00 dose, Fri Medic al NaCl 0.9% 10/28/20 at Bran ch (NS) 2330, 250 piggyback mL sulfur 2020- No [id number] 4mL 4 mL, Univ ers hexafluorid 10-28 Intravenou i ty of e microsphr 21:00: 21:00 s, ONCE, 1 [place] (LUMASON) 00 :00 dose, Fri Medic al injection 4 10/28/20 at Br anch mL 1600, Routine
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 Restricted medication : KISHORE ROSS [...] last Branch Fsbg modificati Testing on) on [facility] 10/27/20 at 0800, Until Discontinu ed, Routine metoprolol No 25mg 25 mg, Univ ers (LOPRESSOR) 10-27 Oral, BID, i ty of 10 mg/mL 13:00: 22:34 First dose [place] oral 00 :39 on [place] Medical suspension 10/27/20 at [facility] nc 25 mg 0800, Until Discontinu ed, Routine furosemide No 20mg 20 mg, Univ ers (LASIX) 10-27 Slow IV ity of injection 06:45: 06:00 Push, ONCE [place] 20 mg 00 :00 NOW, 1 Medical dose, [facility] Branch 10/27/20 at 0145, Routine metoprolol 2020- No 2.5mg 2.5 mg, Un michael (LOPRESSOR) 10-27 Intravenou i ty of injection 05:00: 05:04 s, Q6H, 1 [place] 2.5 mg 00 :00 dose, Medical First dose Branch (after last modificati on) on [facility] 10/27/20 at 0000, Routine amLODIPine No 5mg 5 mg, Unive rs benzoate 10-27 Oral, ity of (KATERZIA) 02:15: 17:26 DAILY, [place] 1 mg/mL 00 :04 First dose Medica l oral on Sat Branch suspension 10/26/20 at 5 mg 2115, Until Discontinu ed, Routine traZODone No 100mg 100 mg, Uni vers (COMPOUNDED [...] 30meq 30 mEq, IV Unive rs (POTASSIUM 10-26-14 Piggyback, it y of CHLORIDE) 12:30: 13:26 [...] Routine metoprolol 2020- No 5mg 5 mg, [place] [facility] (L[facility]) 10-25 Intravenou i ty of injection 5 21:00: 20:00 s, ONCE, 1 [place] mg 00 :00 dose, [facility] 10/25/20 at Branch 1600, Routine sodium No 4mL 4 mL, Univers chloride 7% 10-25 Inhalation i ty of (HYPER-JOSE) 16:15: 14:04 , BID, You as nebulizer 00 :03 First dose Medi lizzy solution 4 on [facility] mL 10/25/20 at 1115, Until Discontinu ed, Routine ampicillin 2020- No 2000mg 2,000 mg, Univers (POLYCILLIN 10-25 IV ity of -N) 2,000 16:15: 14:06 Piggyback, [place] mg in NaCl 00 :40 Q8H ABX, Medic al 0.9% (NS) First dose Bran ch 100 mL on [facility] MINI-BAG 10/25/20 at 1115, Until Discontinu ed, 100 mL
R russ for Anti-Infec tive: Documented Infection< br>Documen tennille Infection Site: Urine<br&g t;Duration of Therapy: 7 days lactulose 2020- No 45mL 45 mL, [facility] rs (CEPHULAC) 10-25 Enteral, ity of solution 45 16:15: 15:35 ONCE, 1 [place] mL 00 :00 dose, [facility] 10/25/20 at Branch 1115, Routine ipratropium 2020- No 3mL 3 mL, Univ ers -albuteroL 10-25 Inhalation it y of (DUONEB) 16:13: 16:16 , QIDPRN, You as 0.5 mg-3 26 :25 Starting Medical mg(2.5 mg [facility] base)/3 mL 10/25/20 at nebulizer 1113, solution 3 Until Sat mL 10/29/20 at 1116, Routine, Wheezing sennosides- Yes 1{tbl} 1 tablet, Univers docusate 10-25 Enteral, ity of sodium 15:15: DAILY, [place] (SENOKOT-S) 00 First dose Me dical 8.6-50 mg on Sat per tablet 10/25/20 at 1 tablet 1015, Until Discontinu ed, Routine KCL 2020- No 30meq 30 mEq, IV Unive rs (POTASSIUM 10-25 Piggyback, it y of CHLORIDE) 13:30: 13:54 ONCE, 1 [place] 30 mEq in 00 :00 dose, Tu Medic al NaCl 0.9% 10/25/20 at Bran ch (NS) 0830, 250 piggyback mL azithromyci 2020- No 500mg 500 mg, IV Univers n 10-25 Piggyback, ity of (ZITHROMAX) 01:30: 15:05 Q24H ABX, [place] 500 mg in 00 :04 3 doses, Medica l NaCl 0.9% First dose Bran ch (NS) 250 mL on Sat VIAL-MATE 10/24/20 at IV 2029, Last piggyback dose on Sat10/26/20 at 2030, [...] g 00 :44 First dose Medical on [facility] 10/24/20 at 1430, Until Discontinu ed, Routine vancomycin 2020- No 15mg/kg 1,000 mg Univers (VANCOCIN) 10-23 (rounded ity of 1,000 mg in 18:30: 00:35 from 919.5 [place] NaCl 0.9% 00 :47 mg = 15 Medical (NS) 250 mL mg/kg Branch VIAL-MATE ?61.3 kg), IV IV piggyback Piggyback, Q24H ABX, First dose (after last modificati on) on [place] 10/23/20 at 1330, Until Discontinu ed, 250 mL
Reas on for Anti-Infec tive: Empiric Therapy for Suspected Infection< br>Empiric Therapy Site: Respirator y
Durat ion of therapy: 72 hours aspirin Yes 81mg 81 mg, Univers chewable 10-23 Oral, ity of tablet 81 14:00: DAILY, [place] mg 00 First dose Medical on [facility] 10/23/20 at 0900, Until Discontinu ed, Routine pantoprazol No 40mg 40 mg, IV Univers e 10-23 Piggyback, ity of (PROTONIX) 13:00: 14:12 Q12H, [place] 40 mg in 00 :01 First dose Medic al NaCl 0.9% on [facility] (NS) 100 mL 10/23/20 at MINI-BAG 0800, Until Discontinu ed, 100 mL Sliding 2020- No Subcutaneo Uni vers Scale 10-23 us, TID ity of Insulin - 13:00: 12:58 MEALS+HS, [place] Lispro 00 :53 First dose Medical (HumaLOG) + on [facility] Fsbg 10/23/20 at Testing 0800, [...] 1,000 mg in 18:45: 21:13 from 919.5 [place] NaCl 0.9% 00 :00 mg = 15 [...] mcg/kg/min ity of 18:20: 12:12 ?61.3 kg [place] 00 :42 (1.839-18. Medical 39 mL/hr, Branch [...] mouth ity of 20 mg 16:24: daily. [place] tablet 17 [facility] Branch traZODone Yes 100mg Take 100 Uni vers 100 mg 4-10 mg by ity of tablet 16:24: mouth at [place] [id number] bedtime. Medical Branch insulin NPH 2020- No inject Uni vers hum/reg 10-22 04-10 under the ity of insulin hm 16:24: 00:00 skin. [place] (NOVOLIN 17 :00 Medical 70/30 SC) [place] glucagon Yes 1mg 1 mg, [facility] (GLUCAGEN 10-22 Intramuscu ity of DIAGNOSTIC 16:21: [...] of unit/mL pen 00:00: 05:59 under the [place] injector 00 :00 skin 3 Medical (three) Branch times daily. insulin 2021- No 5U inject 5 Unive rs lispro 100 07-29-16 Units ity of unit/mL pen 00:00: 05:59 under the [place] injector 00 :00 skin 3 Medical (three) Branch times daily. insulin 2021- No 5U inject 5 Unive rs lispro 100 07-29-16 Units ity of unit/mL pen 00:00: 05:59 under the [place] injector 00 :00 skin 3 Medical (three) [...] :00 (three) Medical times Branch daily. gabapentin 2019-07 No 300mg Take 300 U nivers 300 mg 2-21 04-27 mg by ity of capsule 00:00: 00:00 mouth 3 [place] 00 :00 (three) Medical times Branch daily. amLODIPine 2019-07 Yes 1{tbl} Take 1 Uni vers 5 mg tablet 2-03 tablet by ity of 00:00: mouth [place] 00 daily. Medical Branch calcitrioL 2019-07 Yes 1{capsu Take 1 Un michael 0.5 mcg 2-03 le} capsule by ity of capsule 00:00: mouth [place] 00 daily. Medical Branch insulin 2019-07 Yes 15U inject 15 Unive rs glargine 2-03 Units ity of (LANTUS 00:00: under the [place] U-100 00 skin Medical INSULIN) daily. Branch 100 unit/mL injection insulin 2019-07 Yes 15U inject 15 Unive rs glargine 2-03 Units ity of (LANTUS 00:00: under the [place] U-100 00 skin Medical INSULIN) daily. Branch 100 unit/mL injection insulin 2019-07 Yes 15U inject 15 Unive rs glargine 2-03 Units ity of (LANTUS 00:00: under the [place] U-100 00 skin Medical INSULIN) daily. Branch 100 unit/mL injection insulin 2019-07 Yes 15U inject 15 Unive rs glargine 2-03 Units ity of (LANTUS 00:00: under the [place] U-100 00 skin Medical INSULIN) daily. Branch [...] Units ity of (LANTUS 00:00: under the [place] U-100 00 skin Medical INSULIN) daily. Branch 100 unit/mL injection insulin 2019-07 Yes 15U inject 15 Unive rs glargine 2-03 Units ity of (LANTUS 00:00: under the [place] U-100 00 skin Medical INSULIN) daily. Branch 100 unit/mL injection insulin 2019-07 Yes 15U inject 15 Unive rs glargine 2-03 Units ity of (LANTUS 00:00: under the [place] U-100 00 skin Medical INSULIN) daily. Branch [...] the ity of insulin hm 21:24: skin. [place] ([address] 70/30 [place]) Branch escitalopra 2019-07 Yes 20mg Take 20 mg Univers m oxalate 0-20 by mouth ity of 20 mg 21:24: daily. [facility] 44 Medical Branch traZODone 2019-07 Yes 100mg Take 100 Uni vers 100 mg 0-20 mg by ity of tablet 21:24: mouth at [place] [address] bedtime. Medical Branch insulin NPH 2019-07 Yes inject Univ ers hum/reg 0-20 under the ity of insulin hm 21:24: skin. [place] ([address] 70/30 [place]) Branch escitalopra 2019-07 Yes 20mg Take 20 mg Univers m oxalate 0-20 by mouth ity of 20 mg 21:24: daily. [facility] 44 Medical Branch traZODone 2019-07 Yes 100mg Take 100 Uni vers 100 mg 0-20 mg by ity of tablet 21:24: mouth at [place] [address] bedtime. Medical Branch insulin NPH 2019-07 Yes inject Univ ers hum/reg 0-20 under the ity of insulin hm 21:24: skin. [place] ([address] 70/30 [place]) Branch escitalopra 2019-07 Yes 20mg Take 20 mg Univers m oxalate 0-20 by mouth ity of 20 mg 21:24: daily. [facility] 44 [facility] Branch traZODone 2019-07 Yes 100mg Take 100 Uni vers 100 mg 0-20 mg by ity of tablet 21:24: mouth at [place] [address] bedtime. Medical Branch metFORMIN Yes [id number] 500mg Take 1 Univers 500 mg 4-16 tablet by ity of tablet 00:00: mouth 2 (two) Medical times Branch daily with meals. ondansetron 2020-0 Yes [id number] 4mg Take 1 Univers (ZOFRAN 4-16 tablet by ity of ODT) 4 mg 00:00: mouth [place] disintegrat 00 every 8 Medic al ing tablet (eight) Branch hours as needed for Nausea and Vomiting (N/V). metFORMIN 2020-0 Yes [id number] 500mg Take 1 Univers 500 mg 4-16 tablet by ity of tablet 00:00: mouth (two) Medical times Branch daily with meals. ondansetron 2020-0 Yes [id number] 4mg Take 1 Univers (ZOFRAN 4-16 tablet by ity of ODT) 4 mg 00:00: mouth [place] disintegrat 00 every 8 Medic al ing tablet (eight) Branch hours as needed for Nausea and Vomiting (N/V). metFORMIN 2020-0 Yes [id number] 500mg Take 1 Univers 500 mg 4-16 tablet by ity of tablet 00:00: mouth (two) Medical times Branch daily with meals. ondansetron 2020-0 Yes [id number] 4mg Take 1 Univers (ZOFRAN 4-16 tablet by ity of ODT) 4 mg 00:00: mouth [place] disintegrat 00 every 8 Medic al ing tablet (eight) Branch hours as needed for Nausea and Vomiting (N/V). metFORMIN 2020-0 Yes [id number] 500mg Take 1 Univers 500 mg 4-16 tablet by ity of tablet 00:00: mouth (two) Medical times Branch daily with meals. ondansetron 2020-0 Yes [id number] 4mg Take 1 Univers (ZOFRAN 4-16 tablet by ity of ODT) 4 mg 00:00: mouth [place] disintegrat 00 every 8 Medic al ing tablet (eight) Branch hours as needed for Nausea and Vomiting (N/V). metFORMIN 2020-0 Yes [id number] 500mg Take 1 Univers 500 mg 4-16 tablet by ity of tablet 00:00: mouth (two) Medical times Branch daily with meals. ondansetron 2020-0 Yes [id number] 4mg Take 1 Univers (ZOFRAN 4-16 tablet by ity of ODT) 4 mg 00:00: mouth [place] disintegrat 00 every 8 Medic al ing tablet (eight) Branch hours as needed for Nausea and Vomiting (N/V). metFORMIN 2020-0 Yes [id number] 500mg Take 1 Univers 500 mg 4-16 tablet by ity of tablet 00:00: mouth (two) Medical times Branch daily with meals. ondansetron 2020-0 Yes [id number] 4mg Take 1 Univers (ZOFRAN 4-16 tablet by ity of ODT) 4 mg 00:00: mouth [place] disintegrat 00 every 8 Medic al ing tablet (eight) Branch hours as needed for Nausea and Vomiting (N/V). metFORMIN 2020-0 Yes [id number] 500mg Take 1 Univers 500 mg 4-16 tablet by ity of tablet 00:00: mouth (two) Medical times Branch daily with meals. ondansetron 2020-0 Yes [id number] 4mg Take 1 Univers (ZOFRAN 4-16 tablet by ity of ODT) 4 mg 00:00: mouth [place] disintegrat 00 every 8 Medic al ing tablet (eight) Branch hours as needed for Nausea and Vomiting (N/V). metFORMIN 2020-0 Yes [id number] 500mg Take 1 Univers 500 mg 4-16 tablet by ity of tablet 00:00: mouth (two) Medical times Branch daily with meals. ondansetron 2020-0 Yes [id number] 4mg Take 1 Univers (ZOFRAN 4-16 tablet by ity of ODT) 4 mg 00:00: mouth [place] disintegrat 00 every 8 Medic al ing tablet (eight) Branch hours as needed for Nausea and Vomiting (N/V). metFORMIN 2020-0 Yes [id number] 500mg Take 1 Univers 500 mg 4-16 tablet by ity of tablet 00:00: mouth (two) Medical times Branch daily with meals. ondansetron 2020-0 Yes [id number] 4mg Take 1 Univers (ZOFRAN 4-16 tablet by ity of ODT) 4 mg 00:00: mouth [place] disintegrat 00 every 8 Medic al ing tablet (eight) Branch hours as needed for Nausea and Vomiting (N/V). metFORMIN 2020-0 Yes [id number] 500mg Take 1 Univers 500 mg 4-16 tablet by ity of tablet 00:00: mouth 2 (two) Medical times Branch daily with meals. ondansetron 2020-0 Yes [id number] 4mg Take 1 Univers (ZOFRAN 4-16 tablet by ity of ODT) 4 mg 00:00: mouth [place] disintegrat 00 every 8 Medic al ing tablet (eight) Branch hours as needed for Nausea and Vomiting (N/V). metFORMIN 2020-0 Yes [id number] 500mg Take 1 Univers 500 mg 4-16 tablet by ity of tablet 00:00: mouth 2 [place] 00 (two) Medical times Branch daily with meals. ondansetron 2020-0 Yes [id number] 4mg Take 1 Univers (ZOFRAN 4-16 tablet by ity of ODT) 4 mg 00:00: mouth [place] disintegrat 00 every 8 Medic al ing tablet (eight) Branch hours as needed for Nausea and Vomiting (N/V). metFORMIN 2020-0 Yes [id number] 500mg Take 1 Univers 500 mg 4-16 tablet by ity of tablet 00:00: mouth 2 [place] (two) Medical times Branch daily with meals. ondansetron 2020-0 Yes [id number] 4mg Take 1 Univers (ZOFRAN 4-16 tablet by ity of ODT) 4 mg 00:00: mouth [place] disintegrat 00 every 8 Medic al ing tablet (eight) Branch hours as needed for Nausea and Vomiting (N/V). metFORMIN 2020-0 Yes [id number] 500mg Take 1 Univers 500 mg 4-16 tablet by ity of tablet 00:00: mouth 2 (two) Medical times Branch daily with meals. ondansetron 2020-0 Yes [id number] 4mg Take 1 Univers (ZOFRAN 4-16 tablet by ity of ODT) 4 mg 00:00: mouth [place] disintegrat 00 every 8 Medic al ing tablet (eight) Branch hours as needed for Nausea and Vomiting (N/V). metFORMIN 2020-0 Yes [id number] 500mg Take 1 Univers 500 mg 4-16 tablet by ity of tablet 00:00: mouth 2 00 (two) Medical times Branch daily with meals. ondansetron 2020-0 Yes [id number] 4mg Take 1 Univers (ZOFRAN 4-16 tablet by ity of ODT) 4 mg 00:00: mouth [place] disintegrat 00 every 8 Medic al ing tablet (eight) Branch hours as needed for Nausea and Vomiting (N/V). metFORMIN 2020-0 Yes [id number] 500mg Take 1 Univers 500 mg 4-16 tablet by ity of tablet 00:00: mouth 2 [place] (two) Medical times Branch daily with meals. ondansetron 2020-0 Yes [id number] 4mg Take 1 Univers (ZOFRAN 4-16 tablet by ity of ODT) 4 mg 00:00: mouth [place] disintegrat 00 every 8 Medic al ing tablet (eight) Branch hours as needed for Nausea and Vomiting (N/V). metFORMIN 2020-0 Yes [id number] 500mg Take 1 Univers 500 mg 4-16 tablet by ity of tablet 00:00: mouth 2 (two) Medical times Branch daily with meals. ondansetron 2020-0 Yes [id number] 4mg Take 1 Univers (ZOFRAN 4-16 tablet by ity of ODT) 4 mg 00:00: mouth [place] disintegrat 00 every 8 Medic al ing tablet (eight) Branch hours as needed for Nausea and Vomiting (N/V). metFORMIN 2020-0 Yes [id number] 500mg Take 1 Univers 500 mg 4-16 tablet by ity of tablet 00:00: mouth (two) Medical times Branch daily with meals. ondansetron 2020-0 Yes [id number] 4mg Take 1 Univers (ZOFRAN 4-16 tablet by ity of ODT) 4 mg 00:00: mouth [place] disintegrat 00 every 8 Medic al ing tablet (eight) Branch hours as needed for Nausea and Vomiting (N/V). metFORMIN 2020-0 Yes [id number] 500mg Take 1 Univers 500 mg 4-16 tablet by ity of tablet 00:00: mouth (two) Medical times Branch daily with meals. ondansetron 2020-0 Yes [id number] 4mg Take 1 Univers (ZOFRAN 4-16 tablet by ity of ODT) 4 mg 00:00: mouth [place] disintegrat 00 every 8 Medic al ing tablet (eight) Branch hours as needed for Nausea and Vomiting (N/V). metFORMIN 2020-0 Yes [id number] 500mg Take 1 Univers 500 mg 4-16 tablet by ity of tablet 00:00: mouth 2 [place] (two) Medical times Branch daily with meals. ondansetron 2020-0 Yes [id number] 4mg Take 1 Univers (ZOFRAN 4-16 tablet by ity of ODT) 4 mg 00:00: mouth [place] disintegrat 00 every 8 Medic al ing tablet (eight) Branch hours as needed for Nausea and Vomiting (N/V). metFORMIN 2020-0 Yes [id number] 500mg Take 1 Univers 500 mg 4-16 tablet by ity of tablet 00:00: mouth 2 (two) Medical times Branch daily with meals. ondansetron 2020-0 Yes [id number] 4mg Take 1 Univers (ZOFRAN 4-16 tablet by ity of ODT) 4 mg 00:00: mouth [place] disintegrat 00 every 8 Medic al ing tablet (eight) Branch hours as needed for Nausea and Vomiting (N/V). metFORMIN 2020-0 Yes [id number] 500mg Take 1 Univers 500 mg 4-16 tablet by ity of tablet 00:00: mouth 2 (two) Medical times Branch daily with meals. ondansetron 2020-0 Yes [id number] 4mg Take 1 Univers (ZOFRAN 4-16 tablet by ity of ODT) 4 mg 00:00: mouth [place] disintegrat 00 every 8 Medic al ing tablet (eight) Branch hours as needed for Nausea and Vomiting (N/V). metFORMIN 2020-0 Yes [id number] 500mg Take 1 Univers 500 mg 4-16 tablet by ity of tablet 00:00: mouth (two) Medical times Branch daily with meals. ondansetron 2020-0 Yes [id number] 4mg Take 1 Univers (ZOFRAN 4-16 tablet by ity of ODT) 4 mg 00:00: mouth [place] disintegrat 00 every 8 Medic al ing tablet (eight) Branch hours as needed for Nausea and Vomiting (N/V). metFORMIN 2020-0 Yes [id number] 500mg Take 1 Univers 500 mg 4-16 tablet by ity of tablet 00:00: mouth 2 (two) Medical times Branch daily with meals. ondansetron 2020-0 Yes [id number] 4mg Take 1 Univers (ZOFRAN 4-16 tablet by ity of ODT) 4 mg 00:00: mouth [place] disintegrat 00 every 8 Medic al ing tablet (eight) Branch hours as needed for Nausea and Vomiting (N/V). metFORMIN 2020-0 Yes [id number] 500mg Take 1 Univers 500 mg 4-16 tablet by ity of tablet 00:00: mouth 2 [place] (two) Medical times Branch daily with meals. ondansetron 2020-0 Yes [id number] 4mg Take 1 Univers (ZOFRAN 4-16 tablet by ity of ODT) 4 mg 00:00: mouth [place] disintegrat 00 every 8 Medic al ing tablet (eight) Branch hours as needed for Nausea and Vomiting (N/V). metFORMIN 2020-0 Yes [id number] 500mg Take 1 Univers 500 mg 4-16 tablet by ity of tablet 00:00: mouth (two) Medical times Branch daily with meals. ondansetron 2020-0 Yes [id number] 4mg Take 1 Univers (ZOFRAN 4-16 tablet by ity of ODT) 4 mg 00:00: mouth [place] disintegrat 00 every 8 Medic al ing tablet (eight) Branch hours as needed for Nausea and Vomiting (N/V). metFORMIN 2020-0 Yes [id number] 500mg Take 1 Univers 500 mg 4-16 tablet by ity of tablet 00:00: mouth (two) Medical times Branch daily with meals. ondansetron 2020-0 Yes [id number] 4mg Take 1 Univers (ZOFRAN 4-16 tablet by ity of ODT) 4 mg 00:00: mouth [place] disintegrat 00 every 8 Medic al ing tablet (eight) Branch hours as needed for Nausea and Vomiting (N/V). metFORMIN 2020-0 Yes [id number] 500mg Take 1 [facility] 500 mg 4-16 tablet by ity of tablet 00:00: mouth (two) Medical times Branch daily with meals. ondansetron 2020-0 Yes [id number] 4mg Take 1 [facility] (ZOFRAN 4-16 tablet by ity of ODT) 4 mg 00:00: mouth [place] disintegrat 00 every 8 Medic al ing tablet (eight) Branch hours as needed for Nausea and Vomiting (N/V). metFORMIN 2020-0 Yes [id number] 500mg Take 1 [facility] 500 mg 4-16 tablet by ity of tablet 00:00: mouth 2 (two) Medical times Branch daily with meals. ondansetron 2020-0 Yes [id number] 4mg Take 1 [facility] (ZOFRAN 4-16 tablet by ity of ODT) 4 mg 00:00: mouth [place] disintegrat 00 every 8 Medic al ing tablet (eight) Branch hours as needed for Nausea and Vomiting (N/V). metFORMIN 2019- Yes [id number] 500mg Take 1 [facility] 500 mg 4-16 tablet by ity of tablet 00:00: mouth 2 [place] 00 (two) Medical times Branch daily with meals. ondansetron Yes [id number] 4mg Take 1 [facility] (ZOFRAN 4-16 tablet by ity of ODT) 4 mg 00:00: mouth [place] disintegrat 00 every 8 Medic al ing tablet (eight) Branch hours as needed for Nausea and Vomiting (N/V). metFORMIN 2020- No [id number] 500mg Take 1 [facility] 500 mg 4-16 04-27 tablet by ity of tablet 00:00: 00:00 mouth 2 [place] 00 :00 (two) Medical times Branch daily with meals. ondansetron 2020- No [id number] 4mg Take 1 [facility] (ZOFRAN 4-16 04-27 tablet by ity of ODT) 4 mg 00:00: 00:00 mouth [place] disintegrat 00 :00 every 8 Medic al ing tablet (eight) Branch hours as needed for Nausea and Vomiting (N/V). metFORMIN 2019-2020- No [id number] 500mg Take 1 [facility] 500 mg 4-16 04-27 tablet by ity of tablet 00:00: 00:00 mouth 2 [place] 00 :00 (two) Medical times Branch daily with meals. ondansetron 2020- No [id number] 4mg Take 1 [facility] (ZOFRAN 4-16 04-27 tablet by ity of ODT) 4 mg 00:00: 00:00 mouth [place] disintegrat 00 :00 every 8 Medic al ing tablet (eight) Branch hours as needed for Nausea and Vomiting (N/V). insulin NPH 2019- 2020- No 18U inject 18 [facility] human 4-15 04-15 Units ity of isophane 15:00: 00:00 under the You as (HUMULIN N 08 :00 skin 2 Medical NPH INSULIN (two) Branch KWIKPEN FL) times daily. atorvastati Yes 80mg 80 mg, Univ ers n (LIPITOR) 4-15 Oral, QHS, it y of tablet 80 02:00: First dose [place] mg 00 on [facility] 10/27/19 at Branch 2100, Until Discontinu ed, Routine amoxicillin 2020-0 Yes [id number] 500mg Take 1 [facility] 500 mg 4-15 capsule by ity of capsule 00:00: mouth 2 [place] 00 (two) Medical times Branch daily. Lactobacill 2020-0 Yes [id number] 1{tbl} Take 1 [facility] us 4-15 tablet by ity of Acidophilus 00:00: mouth 2 [place] as 1 billion 00 (two) Medical cell Tab times Branch daily. traMADol 50 2020-0 Yes [id number] 50mg Take 1 [facility] mg tablet 4-15 tablet by ity o f 00:00: mouth [place] 00 every 8 Medical (eight) Branch hours as needed for Pain (scale 7-10). amoxicillin 2020-0 Yes [id number] 500mg Take 1 [facility] 500 mg 4-15 capsule by ity of capsule 00:00: mouth 2 [place] 00 (two) Medical times Branch daily. Lactobacill 2020-0 Yes [id number] 1{tbl} Take 1 [facility] us 4-15 tablet by ity of Acidophilus 00:00: mouth 2 [place] as 1 billion 00 (two) Medical cell Tab times Branch daily. traMADol 50 2020-0 Yes [id number] 50mg Take 1 [facility] mg tablet 4-15 tablet by ity o f 00:00: mouth [place] 00 every 8 Medical (eight) Branch hours as needed for Pain (scale 7-10). amoxicillin 2020-0 Yes [id number] 500mg Take 1 [facility] 500 mg 4-15 capsule by ity of capsule 00:00: mouth 2 [place] 00 (two) Medical times Branch daily. Lactobacill 2020-0 Yes [id number] 1{tbl} Take 1 [facility] us 4-15 tablet by ity of Acidophilus 00:00: mouth 2 [place] as 1 billion 00 (two) Medical cell Tab times Branch daily. traMADol 50 2020-0 Yes [id number] 50mg Take 1 [facility] mg tablet 4-15 tablet by ity o f 00:00: mouth [place] 00 every 8 Medical (eight) Branch hours as needed for Pain (scale 7-10). amoxicillin 2020-0 Yes [id number] 500mg Take 1 [facility] 500 mg 4-15 capsule by ity of capsule 00:00: mouth 2 [place] 00 (two) Medical times Branch daily. Lactobacill 2020-0 Yes [id number] 1{tbl} Take 1 [facility] us 4-15 tablet by ity of Acidophilus 00:00: mouth 2 [place] as 1 billion 00 (two) Medical cell Tab times Branch daily. traMADol 50 2020-0 Yes [id number] 50mg Take 1 [facility] mg tablet 4-15 tablet by ity o f 00:00: mouth [place] 00 every 8 Medical (eight) Branch hours as needed for Pain (scale 7-10). amoxicillin 2020-0 Yes [id number] 500mg Take 1 [facility] 500 mg 4-15 capsule by ity of capsule 00:00: mouth 2 [place] 00 (two) Medical times Branch daily. Lactobacill 2020-0 Yes [id number] 1{tbl} Take 1 [facility] us 4-15 tablet by ity of Acidophilus 00:00: mouth 2 [place] as 1 billion 00 (two) Medical cell Tab times Branch daily. traMADol 50 2020-0 Yes [id number] 50mg Take 1 [facility] mg tablet 4-15 tablet by ity o f 00:00: mouth [place] 00 every 8 Medical (eight) Branch hours as needed for Pain (scale 7-10). amoxicillin 2020-0 Yes [id number] 500mg Take 1 [facility] 500 mg 4-15 capsule by ity of capsule 00:00: mouth 2 [place] 00 (two) Medical times Branch daily. Lactobacill 2020-0 Yes [id number] 1{tbl} Take 1 [facility] us 4-15 tablet by ity of Acidophilus 00:00: mouth 2 [place] as 1 billion 00 (two) Medical cell Tab times Branch daily. traMADol 50 2020-0 Yes [id number] 50mg Take 1 [facility] mg tablet 4-15 tablet by ity o f 00:00: mouth [place] 00 every 8 Medical (eight) Branch hours as needed for Pain (scale 7-10). amoxicillin 2020-0 Yes [id number] 500mg Take 1 [facility] 500 mg 4-15 capsule by ity of capsule 00:00: mouth 2 [place] 00 (two) Medical times Branch daily. Lactobacill 2020-0 Yes [id number] 1{tbl} Take 1 [facility] us 4-15 tablet by ity of Acidophilus 00:00: mouth 2 [place] as 1 billion 00 (two) Medical cell Tab times Branch daily. traMADol 50 2020-0 Yes [id number] 50mg Take 1 [facility] mg tablet 4-15 tablet by ity o f 00:00: mouth [place] 00 every 8 Medical (eight) Branch hours as needed for Pain (scale 7-10). amoxicillin 2020-0 Yes [id number] 500mg Take 1 [facility] 500 mg 4-15 capsule by ity of capsule 00:00: mouth 2 [place] 00 (two) Medical times Branch daily. Lactobacill 2020-0 Yes [id number] 1{tbl} Take 1 [facility] us 4-15 tablet by ity of Acidophilus 00:00: mouth 2 [place] 1 billion 00 (two) Medical cell Tab times Branch daily. traMADol 50 2020-0 Yes [id number] 50mg Take 1 [facility] mg tablet 4-15 tablet by ity o f 00:00: mouth [place] 00 every 8 Medical (eight) Branch hours as needed for Pain (scale 7-10). amoxicillin 2020-0 Yes [id number] 500mg Take 1 [facility] 500 mg 4-15 capsule by ity of capsule 00:00: mouth 2 [place] 00 (two) Medical times Branch daily. Lactobacill 2020-0 Yes [id number] 1{tbl} Take 1 [facility] us 4-15 tablet by ity of Acidophilus 00:00: mouth 2 [place] as 1 billion 00 (two) Medical cell Tab times Branch daily. traMADol 50 2020-0 Yes [id number] 50mg Take 1 [facility] mg tablet 4-15 tablet by ity o f 00:00: mouth [place] 00 every 8 Medical (eight) Branch hours as needed for Pain (scale 7-10). amoxicillin 2020-0 Yes [id number] 500mg Take 1 [facility] 500 mg 4-15 capsule by ity of capsule 00:00: mouth 2 00 (two) Medical times Branch daily. Lactobacill 2020-0 Yes [id number] 1{tbl} Take 1 [facility] us 4-15 tablet by ity of Acidophilus 00:00: mouth 2 [place] 1 billion 00 (two) Medical cell Tab times Branch daily. traMADol 50 2020-0 Yes [id number] 50mg Take 1 [facility] mg tablet 4-15 tablet by ity o f 00:00: mouth [place] 00 every 8 Medical (eight) Branch hours as needed for Pain (scale 7-10). amoxicillin 2020-0 Yes [id number] 500mg Take 1 [facility] 500 mg 4-15 capsule by ity of capsule 00:00: mouth 2 [place] 00 (two) Medical times Branch daily. Lactobacill 2020-0 Yes [id number] 1{tbl} Take 1 [facility] us 4-15 tablet by ity of Acidophilus 00:00: mouth 2 [place] 1 billion 00 (two) Medical cell Tab times Branch daily. traMADol 50 2020-0 Yes [id number] 50mg Take 1 [facility] mg tablet 4-15 tablet by ity o f 00:00: mouth [place] 00 every 8 Medical (eight) Branch hours as needed for Pain (scale 7-10). amoxicillin 2020-0 Yes [id number] 500mg Take 1 [facility] 500 mg 4-15 capsule by ity of capsule 00:00: mouth 2 [place] 00 (two) Medical times Branch daily. Lactobacill 2020-0 Yes [id number] 1{tbl} Take 1 [facility] us 4-15 tablet by ity of Acidophilus 00:00: mouth 2 [place] as 1 billion 00 (two) Medical cell Tab times Branch daily. traMADol 50 2020-0 Yes [id number] 50mg Take 1 [facility] mg tablet 4-15 tablet by ity o f 00:00: mouth [place] 00 every 8 Medical (eight) Branch hours as needed for Pain (scale 7-10). amoxicillin 2020-0 Yes [id number] 500mg Take 1 [facility] 500 mg 4-15 capsule by ity of capsule 00:00: mouth 2 [place] 00 (two) Medical times Branch daily. Lactobacill 2020-0 Yes [id number] 1{tbl} Take 1 [facility] us 4-15 tablet by ity of Acidophilus 00:00: mouth 2 [place] as 1 billion 00 (two) Medical cell Tab times Branch daily. traMADol 50 2020-0 Yes [id number] 50mg Take 1 [facility] mg tablet 4-15 tablet by ity o f 00:00: mouth [place] 00 every 8 Medical (eight) Branch hours as needed for Pain (scale 7-10). amoxicillin 2020-0 Yes [id number] 500mg Take 1 [facility] 500 mg 4-15 capsule by ity of capsule 00:00: mouth 2 [place] 00 (two) Medical times Branch daily. Lactobacill 2020-0 Yes [id number] 1{tbl} Take 1 [facility] us 4-15 tablet by ity of Acidophilus 00:00: mouth 2 [place] as 1 billion 00 (two) Medical cell Tab times Branch daily. traMADol 50 2020-0 Yes [id number] 50mg Take 1 [facility] mg tablet 4-15 tablet by ity o f 00:00: mouth [place] 00 every 8 Medical (eight) Branch hours as needed for Pain (scale 7-10). amoxicillin 2020-0 Yes [id number] 500mg Take 1 [facility] 500 mg 4-15 capsule by ity of capsule 00:00: mouth 2 00 (two) Medical times Branch daily. Lactobacill 2020-0 Yes [id number] 1{tbl} Take 1 [facility] us 4-15 tablet by ity of Acidophilus 00:00: mouth 2 [place] as 1 billion 00 (two) Medical cell Tab times Branch daily. traMADol 50 2020-0 Yes [id number] 50mg Take 1 [facility] mg tablet 4-15 tablet by ity o f 00:00: mouth [place] 00 every 8 Medical (eight) Branch hours as needed for Pain (scale 7-10). amoxicillin 2020-0 Yes [id number] 500mg Take 1 [facility] 500 mg 4-15 capsule by ity of capsule 00:00: mouth 2 (two) Medical times Branch daily. Lactobacill 2020-0 Yes [id number] 1{tbl} Take 1 [facility] us 4-15 tablet by ity of Acidophilus 00:00: mouth 2 [place] as 1 billion 00 (two) Medical cell Tab times Branch daily. traMADol 50 2020-0 Yes [id number] 50mg Take 1 [facility] mg tablet 4-15 tablet by ity o f 00:00: mouth [place] 00 every 8 Medical (eight) Branch hours as needed for Pain (scale 7-10). amoxicillin 2020-0 Yes [id number] 500mg Take 1 [facility] 500 mg 4-15 capsule by ity of capsule 00:00: mouth 2 00 (two) Medical times Branch daily. Lactobacill 2020-0 Yes [id number] 1{tbl} Take 1 [facility] us 4-15 tablet by ity of Acidophilus 00:00: mouth 2 [place] as 1 billion 00 (two) Medical cell Tab times Branch daily. traMADol 50 2020-0 Yes [id number] 50mg Take 1 [facility] mg tablet 4-15 tablet by ity o f 00:00: mouth [place] 00 every 8 Medical (eight) Branch hours as needed for Pain (scale 7-10). amoxicillin 2020-0 Yes [id number] 500mg Take 1 [facility] 500 mg 4-15 capsule by ity of capsule 00:00: mouth 2 (two) Medical times Branch daily. Lactobacill 2020-0 Yes [id number] 1{tbl} Take 1 [facility] us 4-15 tablet by ity of Acidophilus 00:00: mouth 2 [place] as 1 billion 00 (two) Medical cell Tab times Branch daily. traMADol 50 2020-0 Yes [id number] 50mg Take 1 [facility] mg tablet 4-15 tablet by ity o f 00:00: mouth [place] 00 every 8 Medical (eight) Branch hours as needed for Pain (scale 7-10). amoxicillin 2020-0 Yes [id number] 500mg Take 1 [facility] 500 mg 4-15 capsule by ity of capsule 00:00: mouth 2 [place] 00 (two) Medical times Branch daily. Lactobacill 2020-0 Yes [id number] 1{tbl} Take 1 [facility] us 4-15 tablet by ity of Acidophilus 00:00: mouth 2 You as 1 billion 00 (two) Medical cell Tab times Branch daily. traMADol 50 2020-0 Yes [id number] 50mg Take 1 [facility] mg tablet 4-15 tablet by ity o f 00:00: mouth [place] 00 every 8 Medical (eight) Branch hours as needed for Pain (scale 7-10). amoxicillin 2020-0 Yes [id number] 500mg Take 1 [facility] 500 mg 4-15 capsule by ity of capsule 00:00: mouth 2 [place] 00 (two) Medical times Branch daily. Lactobacill 2020-0 Yes [id number] 1{tbl} Take 1 [facility] us 4-15 tablet by ity of Acidophilus 00:00: mouth 2 You as 1 billion 00 (two) Medical cell Tab times Branch daily. traMADol 50 2020-0 Yes [id number] 50mg Take 1 [facility] mg tablet 4-15 tablet by ity o f 00:00: mouth [place] 00 every 8 Medical (eight) Branch hours as needed for Pain (scale 7-10). amoxicillin 2020-0 Yes [id number] 500mg Take 1 [facility] 500 mg 4-15 capsule by ity of capsule 00:00: mouth 2 [place] 00 (two) Medical times Branch daily. Lactobacill 2020-0 Yes [id number] 1{tbl} Take 1 [facility] us 4-15 tablet by ity of Acidophilus 00:00: mouth 2 You as 1 billion 00 (two) Medical cell Tab times Branch daily. traMADol 50 2020-0 Yes [id number] 50mg Take 1 [facility] mg tablet 4-15 tablet by ity o f 00:00: mouth [place] 00 every 8 Medical (eight) Branch hours as needed for Pain (scale 7-10). amoxicillin 2020-0 Yes [id number] 500mg Take 1 [facility] 500 mg 4-15 capsule by ity of capsule 00:00: mouth 2 00 (two) Medical times Branch daily. Lactobacill 2020-0 Yes [id number] 1{tbl} Take 1 [facility] us 4-15 tablet by ity of Acidophilus 00:00: mouth 2 [place] as 1 billion 00 (two) Medical cell Tab times Branch daily. traMADol 50 2020-0 Yes [id number] 50mg Take 1 [facility] mg tablet 4-15 tablet by ity o f 00:00: mouth [place] 00 every 8 Medical (eight) Branch hours as needed for Pain (scale 7-10). amoxicillin 2020-0 Yes [id number] 500mg Take 1 [facility] 500 mg 4-15 capsule by ity of capsule 00:00: mouth 2 (two) Medical times Branch daily. Lactobacill 2020-0 Yes [id number] 1{tbl} Take 1 [facility] us 4-15 tablet by ity of Acidophilus 00:00: mouth 2 [place] as 1 billion 00 (two) Medical cell Tab times Branch daily. traMADol 50 2020-0 Yes [id number] 50mg Take 1 [facility] mg tablet 4-15 tablet by ity o f 00:00: mouth [place] 00 every 8 Medical (eight) Branch hours as needed for Pain (scale 7-10). amoxicillin 2020-0 Yes [id number] 500mg Take 1 [facility] 500 mg 4-15 capsule by ity of capsule 00:00: mouth 2 (two) Medical times Branch daily. Lactobacill 2020-0 Yes [id number] 1{tbl} Take 1 [facility] us 4-15 tablet by ity of Acidophilus 00:00: mouth 2 [place] as 1 billion 00 (two) Medical cell Tab times Branch daily. traMADol 50 2020-0 Yes [id number] 50mg Take 1 [facility] mg tablet 4-15 tablet by ity o f 00:00: mouth [place] 00 every 8 Medical (eight) Branch hours as needed for Pain (scale 7-10). amoxicillin 2020-0 Yes [id number] 500mg Take 1 [facility] 500 mg 4-15 capsule by ity of capsule 00:00: mouth 2 [place] 00 (two) Medical times Branch daily. Lactobacill 2020-0 Yes [id number] 1{tbl} Take 1 [facility] us 4-15 tablet by ity of Acidophilus 00:00: mouth 2 You as 1 billion 00 (two) Medical cell Tab times Branch daily. traMADol 50 2020-0 Yes [id number] 50mg Take 1 [facility] mg tablet 4-15 tablet by ity o f 00:00: mouth [place] 00 every 8 Medical (eight) Branch hours as needed for Pain (scale 7-10). amoxicillin 2020-0 Yes [id number] 500mg Take 1 [facility] 500 mg 4-15 capsule by ity of capsule 00:00: mouth 2 [place] 00 (two) Medical times Branch daily. Lactobacill 2020-0 Yes [id number] 1{tbl} Take 1 [facility] us 4-15 tablet by ity of Acidophilus 00:00: mouth 2 [place] as 1 billion 00 (two) Medical cell Tab times Branch daily. traMADol 50 2020-0 Yes [id number] 50mg Take 1 [facility] mg tablet 4-15 tablet by ity o f 00:00: mouth [place] 00 every 8 Medical (eight) Branch hours as needed for Pain (scale 7-10). amoxicillin 2020-0 Yes [id number] 500mg Take 1 [facility] 500 mg 4-15 capsule by ity of capsule 00:00: mouth 2 00 (two) Medical times Branch daily. Lactobacill 2020-0 Yes [id number] 1{tbl} Take 1 [facility] us 4-15 tablet by ity of Acidophilus 00:00: mouth 2 [place] as 1 billion 00 (two) Medical cell Tab times Branch daily. traMADol 50 2020-0 Yes [id number] 50mg Take 1 [facility] mg tablet 4-15 tablet by ity o f 00:00: mouth [place] 00 every 8 Medical (eight) Branch hours as needed for Pain (scale 7-10). amoxicillin 2020-0 Yes [id number] 500mg Take 1 [facility] 500 mg 4-15 capsule by ity of capsule 00:00: mouth 2 00 (two) Medical times Branch daily. Lactobacill 2020-0 Yes [id number] 1{tbl} Take 1 [facility] us 4-15 tablet by ity of Acidophilus 00:00: mouth 2 [place] as 1 billion 00 (two) Medical cell Tab times Branch daily. traMADol 50 2020-0 Yes [id number] 50mg Take 1 [facility] mg tablet 4-15 tablet by ity o f 00:00: mouth [place] 00 every 8 Medical (eight) Branch hours as needed for Pain (scale 7-10). amoxicillin 2020-0 Yes [id number] 500mg Take 1 [facility] 500 mg 4-15 capsule by ity of capsule 00:00: mouth 2 [place] 00 (two) Medical times Branch daily. Lactobacill 2020-0 Yes [id number] 1{tbl} Take 1 [facility] us 4-15 tablet by ity of Acidophilus 00:00: mouth 2 [place] as 1 billion 00 (two) Medical cell Tab times Branch daily. traMADol 50 2020-0 Yes [id number] 50mg Take 1 [facility] mg tablet 4-15 tablet by ity o f 00:00: mouth [place] 00 every 8 Medical (eight) Branch hours as needed for Pain (scale 7-10). amoxicillin 2020-0 Yes [id number] 500mg Take 1 [facility] 500 mg 4-15 capsule by ity of capsule 00:00: mouth 2 [place] 00 (two) Medical times Branch daily. Lactobacill 2020-0 Yes [id number] 1{tbl} Take 1 [facility] us 4-15 tablet by ity of Acidophilus 00:00: mouth 2 [place] as 1 billion 00 (two) Medical cell Tab times Branch daily. traMADol 50 2020-0 Yes [id number] 50mg Take 1 [facility] mg tablet 4-15 tablet by ity o f 00:00: mouth [place] 00 every 8 Medical (eight) Branch hours as needed for Pain (scale 7-10). amoxicillin 2020-0 Yes [id number] 500mg Take 1 [facility] 500 mg 4-15 capsule by ity of capsule 00:00: mouth 2 [place] 00 (two) Medical times Branch daily. Lactobacill 2020-0 Yes [id number] 1{tbl} Take 1 [facility] us 4-15 tablet by ity of Acidophilus 00:00: mouth 2 You as 1 billion 00 (two) Medical cell Tab times Branch daily. traMADol 50 2020-0 Yes [id number] 50mg Take 1 [facility] mg tablet 4-15 tablet by ity o f 00:00: mouth [place] 00 every 8 Medical (eight) Branch hours as needed for Pain (scale 7-10). traMADol 50 2020-0 Yes [id number] 50mg Take 1 [facility] mg tablet 4-15 tablet by ity o f 00:00: mouth [place] 00 every 8 Medical (eight) Branch hours as needed for Pain (scale 7-10). traMADol 50 2019-2020- No [id number] 50mg Take 1 [facility] mg tablet 4-15 -27 tablet by ity of 00:00: 00:00 mouth [place] 00 :00 every 8 Medical (eight) Branch hours as needed for Pain (scale 7-10). traMADol 50 2019-2020- No [id number] 50mg Take 1 [facility] mg tablet 4-15 -27 tablet by ity of 00:00: 00:00 mouth [place] 00 :00 every 8 Medical (eight) Branch hours as needed for Pain (scale 7-10). amoxicillin 2019-2020- No [id number] 500mg Take 1 [facility] 500 mg 4-15 04-10 capsule by ity of capsule 00:00: 00:00 mouth 2 [place] 00 :00 (two) Medical times Branch daily. amoxicillin 2019-2020- No [id number] 500mg Take 1 [facility] 500 mg 4-15 04-10 capsule by ity of capsule 00:00: 00:00 mouth 2 [place] 00 :00 (two) Medical times Branch daily. amoxicillin 2019-0 2020- No [id number] 500mg Take 1 [facility] 500 mg 4-15 04-10 capsule by ity of capsule 00:00: 00:00 mouth 2 [place] 00 :00 (two) Medical times Branch daily. Lactobacill 2019-2020- No [id number] 1{tbl} Take 1 [facility] us 4-15 04-10 tablet by ity of Acidophilus 00:00: 00:00 mouth 2 [place] 1 billion 00 :00 (two) Medical cell Tab times Branch daily. metoclopram 2019-0 Yes 5mg 5 mg, Slow Univers bj HCl 4-14 IV Push, ity of (REGLAN) 23:14: Q6HPRN, [place] injection 5 57 Starting Medi lizzy mg [facility] 10/27/19 at 181, Until Discontinu ed, Routine, Headache traMADol 2019-0 Yes 50mg 50 mg, Univers (ULTRAM) 4-14 Oral, ity of tablet 50 23:14: Q4HPRN, [place] mg 45 Starting Medical [facility] Branch 10/27/19 at 1814, Until Discontinu ed, Routine, Pain (scale 4-6), Headache acetaminoph 2020-0 Yes 650mg 650 mg, Un michael en 4-14 Oral, ity of (TYLENOL) 18:40: Q4HPRN, [place] tablet 650 56 Starting Medic al mg [facility] 10/27/19 at 1340, Until Discontinu ed, Routine, Pain (scale 1-3) furosemide 2020-0 Yes 40mg 40 mg, Unive rs (LASIX) 4-14 Oral, ity of tablet 40 14:00: QAM+PM, [place] mg 00 First dose Medical on [facility] 10/27/19 at 0900, Until Discontinu ed, Routine metoprolol 2020-0 Yes 50mg 50 mg, Unive rs succinate 4-14 Oral, ity of XL (TOPROL 14:00: DAILY, [place] XL) tablet 00 First dose Med ical 50 mg on [facility] 10/27/19 at 0900, Until Discontinu ed, Routine clopidogreL 2020-0 Yes 75mg 75 mg, Univ ers (PLAVIX) 4-14 Oral, ity of tablet 75 14:00: DAILY, [place] mg 00 First dose Medical on [facility] 10/27/19 at 0900, Until Discontinu ed, Routine enoxaparin 2020-0 Yes 30mg 30 mg, Unive rs (LOVENOX) 4-14 Subcutaneo ity of injection 14:00: us, DAILY, [place] 30 mg 00 First dose Medical on [facility] 10/27/19 at 0900, Until Discontinu ed, Routine docusate 2020-0 Yes 100mg 100 mg, Unive rs (COLACE) 4-14 Oral, BID, ity o f capsule 100 13:00: First dose [place] mg 00 on [facility] 10/27/19 at Branch 0800, Until Discontinu ed, Routine Sliding 2020-0 Yes Subcutaneo Univ ers Scale 4-14 us, TID ity of Insulin - 13:00: MEALS+HS, [place] as [place]art 00 First dose Medical (NOVOLOG) + on [facility] 10/27/19 at Testing 0800, Until Discontinu ed, Routine aspirin 2020-0 Yes 81mg 81 mg, Univers chewable 4-14 Oral, QAM ity of tablet 81 09:15: WITH [place] mg 00 BREAKFAST, Medical First dose Branch on Sat10/27/19 at 0415, Until Discontinu ed, Routine ondansetron [...] injection 48 Starting Medica l 25 mL Tue Branch 10/27/19 at 0353, Until Discontinu ed, [...] ity of ) 03:00: 02:04 ONCE, 1 [place] disintegrat 00 :00 dose, Mon Med ical ing tablet 10/26/19 at [facility] 8 mg 2200, KATHY sodium 2020-0 2020- No [id number] 15g Take 60 mL Univers polystyrene 10-2516 by mouth ity of sulfonate 00:00: 04:59 daily for [place] 15 gram/60 00 :00 2 doses. Medic al mL Branch suspension sodium 2020-0 2020- No [id number] 15g Take 60 mL Univers polystyrene 4-13 04-15 by mouth ity of sulfonate 00:00: 00:00 daily for [place] 15 gram/60 00 :00 2 doses. Medic al mL Branch suspension metoprolol 2020-0 2020- No 50mg Take 50 mg Univers succinate -12 16-06 by mouth ity o f 50 mg CSpX 21:11: 00:00 daily. [facility] 36 :00 Medical Branch spironolact 2020-0 2020- No 25mg Take 25 mg Univers one 25 mg 10-18-06 by mouth ity o f tablet 21:11: 00:00 daily. [place] 36 :00 Medical Branch metoprolol 2020-0 2020- No 50mg Take 50 mg Univers succinate 10-18-06 by mouth ity o f 50 mg CSpX 21:11: 00:00 daily. [facility] 36 :00 Medical Branch spironolact 2020-0 2020- No 25mg Take 25 mg Univers one 25 mg 10-18-06 by mouth ity o f tablet 21:11: 00:00 daily. [place] 36 :00 Medical Branch clopidogreL 2020-0 Yes [...] by ity of tablet 00:00: mouth at [place] 00 bedtime. Medical Branch metoprolol 2020-0 Yes [...] at [place] 00 bedtime. Medical Branch metoprolol Yes 50mg [...] [place] 00 :00 daily. Medical Branch metoprolol 2020-0 2020- No 50mg Take 50 mg Univers succinate 10-18- by mouth ity o f 50 mg CSpX 00:00: 00:00 daily. [place] 00 :00 [facility] metoprolol 2020-0 2020- No 50mg Take 50 mg Univers succinate 10-18-06 by mouth ity o f 50 mg CSpX 00:00: 00:00 daily. [place] 00 :00 [facility] metoprolol 2020-0 Yes 50mg Take 50 mg U nivers succinate 3-19 by mouth ity of 50 mg CSpX 23:09: daily. [address] spironolact 2020-0 Yes 25mg Take 25 mg Univers one 25 mg 3-19 by mouth ity of tablet 23:09: daily. [address] insulin NPH 2020-0 Yes 18U inject 18 U nivers human 3-19 Units ity of isophane 23:09: under the [place] (HUMULIN N 16 skin 2 Medical NPH INSULIN (two) Branch KWIKPEN [place]) times daily. metoprolol 2020-0 Yes 50mg Take 50 mg U nivers succinate 3-19 by mouth ity of 50 mg CSpX 23:09: daily. [address] spironolact 2020-0 Yes 25mg Take 25 mg Univers one 25 mg 3-19 by mouth ity of tablet 23:09: daily. [address] insulin NPH 2020-0 Yes 18U inject [...] 3-19 03-19 tablet by it y of [facility] 16:32: 00:00 mouth 2 [place] (BACTRIM 29 :00 (two) Medical DS) 800-160 times Branch mg per daily. tablet amoxicillin 2020-0 Yes 1{tbl} 1 tablet, Univers -clavulanat 3-19 Oral, ity of e 15:30: Q12H, [place] (AUGMENTIN) 00 First dose Me dical 875-125 mg on Sat per tablet 10/01/19 at 1 tablet 1030, Until Discontinu ed, Routine
Reason for Anti-Infec tive: Empiric Therapy for Suspected Infection< br>Empiric Therapy Site: Respirator y
Durat ion of therapy: 72 hours zolpidem 2020-0 Yes 5mg 5 mg, [facility] (AMBIEN) 3-19 Oral, ity of tablet 5 mg 02:19: QHSPRN, You as [address] [facility] 09/30/19 at 2119, Until Discontinu ed, Routine, Insomnia aspirin 2020-0 Yes 81mg 81 mg, Univers chewable 3-19 Oral, QHS, ity o f tablet 81 02:00: First dose [place] 00 on [facility] 09/30/19 at Branch 2100, Until Discontinu ed, Routine silver 2020-0 Yes Topical, Univers sulfADIAZIN 3-19 BID, First it y of E 01:00: dose on [place] (SILVADENE) 00 Wed Medical 1 % cream 09/30/19 at [facility] 2000, Until Discontinu ed, Routine ferrous 2020-0 Yes [id number] 325mg Take 1 Un [place] sulfate 3-19 tablet by ity of (FERROUSUL) 00:00: mouth 3 You as 325 mg (65 00 (three) Medica l mg iron) times Branch tablet daily with meals. ferrous 2020-0 Yes [id number] 325mg Take 1 Un [place] sulfate 3-19 tablet by ity of (FERROUSUL) 00:00: mouth 3 [place] as 325 mg (65 00 (three) Medica l mg iron) times Branch tablet daily with meals. ferrous 2020-0 Yes [id number] 325mg Take 1 Un [place] sulfate 3-19 tablet by ity of (FERROUSUL) 00:00: mouth 3 You as 325 mg (65 00 (three) Medica l mg iron) times Branch tablet daily with meals. ferrous 2020-0 Yes [id number] 325mg Take 1 Un [place] sulfate 3-19 tablet by ity of (FERROUSUL) 00:00: mouth 3 You as 325 mg (65 00 (three) Medica l mg iron) times Branch tablet daily with meals. ferrous 2020-0 Yes [id number] 325mg Take 1 Un [place] sulfate 3-19 tablet by ity of (FERROUSUL) 00:00: mouth 3 You as 325 mg (65 00 (three) Medica l mg iron) times Branch tablet daily with meals. ferrous 2020-0 Yes [id number] 325mg Take 1 Un [place] sulfate 3-19 tablet by ity of (FERROUSUL) 00:00: mouth 3 [place] as 325 mg (65 00 (three) Medica l mg iron) times Branch tablet daily with meals. ferrous 2020-0 Yes [id number] 325mg Take 1 Un [place] sulfate 3-19 tablet by ity of (FERROUSUL) 00:00: mouth 3 [place] as 325 mg (65 00 (three) Medica l mg iron) times Branch tablet daily with meals. ferrous 2020-0 Yes [id number] 325mg Take 1 Un [place] sulfate 3-19 tablet by ity of (FERROUSUL) 00:00: mouth 3 [place] as 325 mg (65 00 (three) Medica l mg iron) times Branch tablet daily with meals. ferrous 2020-0 Yes [id number] 325mg Take 1 Un [place] sulfate 3-19 tablet by ity of (FERROUSUL) 00:00: mouth 3 You as 325 mg (65 00 (three) Medica l mg iron) times Branch tablet daily with meals. ferrous 2020-0 Yes [id number] 325mg Take 1 Un [place] sulfate 3-19 tablet by ity of (FERROUSUL) 00:00: mouth 3 [place] as 325 mg (65 00 (three) Medica l mg iron) times Branch tablet daily with meals. ferrous 2020-0 Yes [id number] 325mg Take 1 Un [place] sulfate 3-19 tablet by ity of (FERROUSUL) 00:00: mouth 3 You as 325 mg (65 00 (three) Medica l mg iron) times Branch tablet daily with meals. ferrous 2020-0 Yes [id number] 325mg Take 1 Un [place] sulfate 3-19 tablet by ity of (FERROUSUL) 00:00: mouth 3 You as 325 mg (65 00 (three) Medica l mg iron) times Branch tablet daily with meals. ferrous 2020-0 Yes [id number] 325mg Take 1 Un [place] sulfate 3-19 tablet by ity of (FERROUSUL) 00:00: mouth 3 You as 325 mg (65 00 (three) Medica l mg iron) times Branch tablet daily with meals. ferrous 2020-0 Yes [id number] 325mg Take 1 Un [place] sulfate 3-19 tablet by ity of (FERROUSUL) 00:00: mouth 3 You as 325 mg (65 00 (three) Medica l mg iron) times Branch tablet daily with meals. ferrous 2020-0 Yes [id number] 325mg Take 1 Un [place] sulfate 3-19 tablet by ity of (FERROUSUL) 00:00: mouth 3 You as 325 mg (65 00 (three) Medica l mg iron) times Branch tablet daily with meals. ferrous 2020-0 Yes [id number] 325mg Take 1 Un [place] sulfate 3-19 tablet by ity of (FERROUSUL) 00:00: mouth 3 You as 325 mg (65 00 (three) Medica l mg iron) times Branch tablet daily with meals. ferrous 2020-0 Yes [id number] 325mg Take 1 Un [place] sulfate 3-19 tablet by ity of (FERROUSUL) 00:00: mouth 3 You as 325 mg (65 00 (three) Medica l mg iron) times Branch tablet daily with meals. ferrous 2020-0 Yes [id number] 325mg Take 1 Un [place] sulfate 3-19 tablet by ity of (FERROUSUL) 00:00: mouth 3 You as 325 mg (65 00 (three) Medica l mg iron) times Branch tablet daily with meals. ferrous 2020-0 Yes [id number] 325mg Take 1 Un [place] sulfate 3-19 tablet by ity of (FERROUSUL) 00:00: mouth 3 You as 325 mg (65 00 (three) Medica l mg iron) times Branch tablet daily with meals. ferrous 2020-0 Yes [id number] 325mg Take 1 Un [place] sulfate 3-19 tablet by ity of (FERROUSUL) 00:00: mouth 3 You as 325 mg (65 00 (three) Medica l mg iron) times Branch tablet daily with meals. ferrous 2020-0 Yes [id number] 325mg Take 1 Un [place] sulfate 3-19 tablet by ity of (FERROUSUL) 00:00: mouth 3 You as 325 mg (65 00 (three) Medica l mg iron) times Branch tablet daily with meals. ferrous 2020-0 Yes [id number] 325mg Take 1 Un [place] sulfate 3-19 tablet by ity of (FERROUSUL) 00:00: mouth 3 You as 325 mg (65 00 (three) Medica l mg iron) times Branch tablet daily with meals. ferrous 2020-0 Yes [id number] 325mg Take 1 Un [place] sulfate 3-19 tablet by ity of (FERROUSUL) 00:00: mouth 3 You as 325 mg (65 00 (three) Medica l mg iron) times Branch tablet daily with meals. ferrous 2020-0 Yes [id number] 325mg Take 1 Un [place] sulfate 3-19 tablet by ity of (FERROUSUL) 00:00: mouth 3 You as 325 mg (65 00 (three) Medica l mg iron) times Branch tablet daily with meals. ferrous 2020-0 Yes [id number] 325mg Take 1 Un [place] sulfate 3-19 tablet by ity of (FERROUSUL) 00:00: mouth 3 You as 325 mg (65 00 (three) Medica l mg iron) times Branch tablet daily with meals. ferrous 2020-0 Yes [id number] 325mg Take 1 Un [place] sulfate 3-19 tablet by ity of (FERROUSUL) 00:00: mouth 3 You as 325 mg (65 00 (three) Medica l mg iron) times Branch tablet daily with meals. ferrous 2020-0 Yes [id number] 325mg Take 1 Un [place] sulfate 3-19 tablet by ity of (FERROUSUL) 00:00: mouth 3 You as 325 mg (65 00 (three) Medica l mg iron) times Branch tablet daily with meals. ferrous 2020-0 Yes [id number] 325mg Take 1 Un [place] sulfate 3-19 tablet by ity of (FERROUSUL) 00:00: mouth 3 You as 325 mg (65 00 (three) Medica l mg iron) times Branch tablet daily with meals. ferrous 2020-0 Yes [id number] 325mg Take 1 Un [place] sulfate 3-19 tablet by ity of (FERROUSUL) 00:00: mouth 3 You as 325 mg (65 00 (three) Medica l mg iron) times Branch tablet daily with meals. ferrous 2020-0 Yes [id number] 325mg Take 1 Un [place] sulfate 3-19 tablet by ity of (FERROUSUL) 00:00: mouth 3 You as 325 mg (65 00 (three) Medica l mg iron) times Branch tablet daily with meals. ferrous 2020-0 Yes [id number] 325mg Take 1 Un [place] sulfate 3-19 tablet by ity of (FERROUSUL) 00:00: mouth 3 You as 325 mg (65 00 (three) Medica l mg iron) times Branch tablet daily with meals. ferrous 2020-0 Yes [id number] 325mg Take 1 Un [place] sulfate 3-19 tablet by ity of (FERROUSUL) 00:00: mouth 3 You as 325 mg (65 00 (three) Medica l mg iron) times Branch tablet daily with meals. ferrous 2020-0 Yes [id number] 325mg Take 1 Un [place] sulfate 3-19 tablet by ity of (FERROUSUL) 00:00: mouth 3 You as 325 mg (65 00 (three) Medica l mg iron) times Branch tablet daily with meals. ferrous 2020-0 Yes [id number] 325mg Take 1 Un [place] sulfate 3-19 tablet by ity of (FERROUSUL) 00:00: mouth 3 You as 325 mg (65 00 (three) Medica l mg iron) times Branch tablet daily with meals. ferrous 2020-0 Yes [id number] 325mg Take 1 Un [place] sulfate 3-19 tablet by ity of (FERROUSUL) 00:00: mouth 3 You as 325 mg (65 00 (three) Medica l mg iron) times Branch tablet daily with meals. ferrous 2020-0 Yes [id number] 325mg Take 1 Un [place] sulfate 3-19 tablet by ity of (FERROUSUL) 00:00: mouth 3 You as 325 mg (65 00 (three) Medica l mg iron) times Branch tablet daily with meals. ferrous 2020-0 Yes [id number] 325mg Take 1 Un [place] sulfate 3-19 tablet by ity of (FERROUSUL) 00:00: mouth 3 You as 325 mg (65 00 (three) Medica l mg iron) times Branch tablet daily with meals. ferrous 2020-0 Yes [id number] 325mg Take 1 Un [place] sulfate 3-19 tablet by ity of (FERROUSUL) 00:00: mouth 3 You as 325 mg (65 00 (three) Medica l mg iron) times Branch tablet daily with meals. ferrous 2020-0 Yes [id number] 325mg Take 1 Un [place] sulfate 3-19 tablet by ity of (FERROUSUL) 00:00: mouth 3 You as 325 mg (65 00 (three) Medica l mg iron) times Branch tablet daily with meals. ferrous 2020-0 Yes [id number] 325mg Take 1 Un [place]ichael sulfate 3-19 tablet by ity of (FERROUSUL) 00:00: mouth 3 You as 325 mg (65 00 (three) Medica l mg iron) times Branch tablet daily with meals. ferrous 2019-2020- No [id number] 325mg Take 1 U nivers sulfate 3-19 04-27 tablet by ity of (FERROUSUL) 00:00: 00:00 mouth 3 [place] 325 mg (65 00 :00 (three) Medica l mg iron) times Branch tablet daily with meals. ferrous 0 2020- No [id number] 325mg Take 1 U nivers sulfate 3-19 [...] Oral, ity of XL (TOPROL 14:00: DAILY, [place] XL) tablet 00 First dose Med ical 50 mg on Sat Branch 09/30/19 at 0900, Until Discontinu ed insulin NPH 2020-0 Yes 15U 15 Units, U nivers (HUMULIN N) 3-18 Subcutaneo it y of injection 14:00: , [place] 15 Units 00 QAM+PM, Medical First dose [...]
Facu lty member approving Restricted medication : NIKA DE LA PAZAR Sliding 2020-0 Yes Subcutaneo Univ ers Scale [...] 1000mL at 50 Univ ers (NS) IV 18 03-18 mL/hr, IV ity of infusion 03:00: 15:47 Infusion, You as 1,000 mL 00 :11 CONTINUOUS Medic al , Starting Branch Sat09/29/19 at 2200, Until Sat09/30/19 at 1047, Routine melatonin 2020-0 Yes 3mg 3 mg, Univers (MELATIN) 3-18 Oral, QHS, ity of tablet 3 mg 02:30: First dose [place] 00 on Sat [facility] 09/29/19 at Branch 2130, Until Discontinu ed, Routine atorvastati 2020-0 Yes 40mg 40 mg, Univ ers n (LIPITOR) 3-18 Oral, QHS, it y of tablet 40 02:00: First dose [place] mg 00 on Sat [facility] 09/29/19 at Branch 2100, Until Discontinu ed, Routine metoprolol 2020-0 Yes 50mg Take 50 mg U nivers succinate 3-18 by mouth ity of 50 mg CSpX 01:49: daily. [place] [address] Medical Branch spironolact 2020-0 Yes 25mg Take 25 mg Univers one 25 mg 3-18 by mouth ity of tablet 01:49: daily. [place] [address] Medical Branch insulin NPH 2020-0 Yes 18U inject 18 U nivers human 3-18 Units ity of isophane 01:49: [place] (HUMULIN N 18 skin 2 Medical NPH INSULIN (two) Branch KWIKPEN SC) times daily. sulfamethox 2020-0 Yes 1{tbl} Take 1 Un michael azole-trime 3-18 tablet by ity of thoprim 01:49: mouth 2 [place] (BACTRIM 18 (two) Medical DS) 800-160 times Branch mg per daily. tablet metoprolol 2020-0 Yes 50mg Take 50 mg U nivers succinate 3-18 by mouth ity of 50 mg CSpX 01:49: daily. [place] [address] Medical Branch spironolact 2020-0 Yes 25mg Take 25 mg Univers one 25 mg 3-18 by mouth ity of tablet 01:49: daily. [place] [address] Medical Branch insulin NPH 2020-0 Yes 18U inject 18 U nivers human 3-18 Units ity of isophane 01:49: [place] (HUMULIN N 18 skin 2 Medical NPH INSULIN (two) Branch KWIKPEN SC) times daily. ondansetron 2020-0 Yes 4mg 4 mg, Slow Univers (ZOFRAN 3-18 IV Push, ity of (PF)) 01:47: Q6HPRN, [place] injection 4 45 Starting Medi lizzy mg Tue Branch 09/29/19 at 2046, Until Discontinu ed, Routine, Nausea and Vomiting (N/V) HYDROcodone 2020-0 2020- No 1{tbl} 1 tablet, Univers -acetaminop 3-18 03-20 Oral, ity of hen (NORCO 01:47: 01:46 Q6HPRN, [facility] as 5) 5-325 mg 37 :37 Starting Medi lizzy tablet 1 Tue Branch tablet 09/29/19 at 2046, Until Francie 10/01/19 at 2045, Routine, Pain (scale 4-6) acetaminoph 2020-0 Yes 650mg 650 mg, Un michael en 3-18 Oral, ity of (TYLENOL) 01:47: Q6HPRN, [place] tablet 650 36 Starting Medic al mg [facility] 09/29/19 at 2046, Until Discontinu ed, Routine, Pain (scale 1-3) nitroglycer 2020-0 Yes .4mg 0.4 mg, Uni vers in -18 Sublingual ity of (NITROSTAT) 01:46: , Q5MIN You as sublingual 06 PRN, Medical tablet 0.4 Starting Branc h mg [facility] 09/29/19 at 2045, Until Discontinu ed, Routine, Chest pain furosemide 2019-0 2020- No 40mg 40 mg, IV U nivers (LASIX) 18 -17 Push, ity of injection 00:00: 23:22 ONCE, 1 [place] 40 mg 00 :00 dose, [facility] 09/29/19 at [place] 1900, KATHY Sulfamethox Sulfamethox 2020-0 Yes M.A. TAKE 1 Univers azole-Trime azole-Trime -17 TABLET ity of thoprim thoprim 00:00: TWICE [place] 800-160 MG 800-160 MG 00 DAILY. for Physici Oral Tablet Oral Tablet 7 days ans metoprolol 2020-0 Yes 50mg Take 50 mg U nivers succinate 3-16 by mouth ity of 50 mg CSpX 18:06: daily. [address] spironolact 2020-0 Yes 25mg Take 25 mg Univers one 25 mg 3-16 by mouth ity of tablet 18:06: daily. [address] insulin NPH 2020-0 Yes 18U inject 18 U nivers human 3-16 Units ity of isophane 18:06: [place] (HUMULIN N 02 skin 2 Medical NPH INSULIN (two) Branch KWIKPEN SC) times daily. metoprolol 2020-0 Yes 50mg Take 50 mg U nivers succinate 3-16 by mouth ity of 50 mg CSpX 18:06: daily. [address] spironolact 2020-0 Yes 25mg Take 25 mg Univers one 25 mg 3-16 by mouth ity of tablet 18:06: daily. [address] insulin NPH 2020-0 Yes 18U inject 18 U nivers human 3-16 Units ity of isophane 18:06: [place] (HUMULIN N 02 skin 2 Medical NPH INSULIN (two) Branch KWIKPEN SC) times daily. sulfamethox 2020-0 2020- No [id number] 1{tbl} Take 1 Univers azole-trime 09-20 tablet by it y of thoprim 00:00: 04:59 mouth 2 [place] (BACTRIM 00 :00 (two) Medical DS) 800-160 times Branch mg per daily for tablet 7 days. sulfamethox 2020-0 2020- No [id number] 1{tbl} Take 1 Univers azole-trime 09-20 tablet by it y of thoprim 00:00: 04:59 mouth 2 [place] (BACTRIM 00 :00 (two) Medical DS) 800-160 times Branch mg per daily for tablet 7 days. sulfamethox 2020-0 2020- No [id number] 1{tbl} Take 1 Univers azole-trime 09-20 tablet [...] ty of nus 02:15: 02:15 lar, ONCE, [place] (ADACEL) 00 :00 1 dose, Medical injection 09/18/19 Bran ch 0.5 mL at 2014, Routine ondansetron 2020-0 Yes [id number] 4mg Take 1 Univers 4 mg 3-06 tablet by ity of disintegrat 00:00: mouth [place] ing tablet 00 every 8 Medica l (eight) Branch hours as needed for Nausea and Vomiting (N/V) for up to 15 doses. ondansetron 2020-0 Yes [id number] 4mg Take 1 Univers 4 mg 3-06 tablet by ity of disintegrat 00:00: mouth [place] ing tablet 00 every 8 Medica l (eight) Branch hours as needed for Nausea and Vomiting (N/V) for up to 15 doses. ondansetron 2020-0 Yes [id number] 4mg Take 1 Univers 4 mg 3-06 tablet by ity of disintegrat 00:00: mouth [place] ing tablet 00 every 8 Medica l (eight) Branch hours as needed for Nausea and Vomiting (N/V) for up to 15 doses. ondansetron 2020-0 Yes [id number] 4mg Take 1 Univers 4 mg 3-06 tablet by ity of disintegrat 00:00: mouth [place] ing tablet 00 every 8 Medica l (eight) Branch hours as needed for Nausea and Vomiting (N/V) for up to 15 doses. ondansetron 2020-0 Yes [id number] 4mg Take 1 Univers 4 mg 3-06 tablet by ity of disintegrat 00:00: mouth [place] ing tablet 00 every 8 Medica l (eight) Branch hours as needed for Nausea and Vomiting (N/V) for up to 15 doses. ondansetron 2020-0 Yes [id number] 4mg Take 1 Univers 4 mg 3-06 tablet by ity of disintegrat 00:00: mouth [place] ing tablet 00 every 8 Medica l (eight) Branch hours as needed for Nausea and Vomiting (N/V) for up to 15 doses. ondansetron 2020-0 Yes [id number] 4mg Take 1 Univers 4 mg 3-06 tablet by ity of disintegrat 00:00: mouth [place] ing tablet 00 every 8 Medica l (eight) Branch hours as needed for Nausea and Vomiting (N/V) for up to 15 doses. ondansetron 2020-0 Yes [id number] 4mg Take 1 Univers 4 mg 3-06 tablet by ity of disintegrat 00:00: mouth [place] ing tablet 00 every 8 Medica l (eight) Branch hours as needed for Nausea and Vomiting (N/V) for up to 15 doses. ondansetron 2020-0 Yes [id number] 4mg Take 1 Univers 4 mg 3-06 tablet by ity of disintegrat 00:00: mouth [place] ing tablet 00 every 8 Medica l (eight) Branch hours as needed for Nausea and Vomiting (N/V) for up to 15 doses. ondansetron 2020-0 Yes [id number] 4mg Take 1 Univers 4 mg 3-06 tablet by ity of disintegrat 00:00: mouth [place] ing tablet 00 every 8 Medica l (eight) Branch hours as needed for Nausea and Vomiting (N/V) for up to 15 doses. ondansetron 2020-0 Yes [id number] 4mg Take 1 [facility] 4 mg 3-06 tablet by ity of disintegrat 00:00: mouth [place] ing tablet 00 every 8 Medica l (eight) Branch hours as needed for Nausea and Vomiting (N/V) for up to 15 doses. ondansetron 2020-0 Yes [id number] 4mg Take 1 Univers 4 mg 3-06 tablet by ity of disintegrat 00:00: mouth [place] ing tablet 00 every 8 Medica l (eight) Branch hours as needed for Nausea and Vomiting (N/V) for up to 15 doses. ondansetron 2020-0 Yes [id number] 4mg Take 1 Univers 4 mg 3-06 tablet by ity of disintegrat 00:00: mouth [place] ing tablet 00 every 8 Medica l (eight) Branch hours as needed for Nausea and Vomiting (N/V) for up to 15 doses. ondansetron 2020-0 Yes [id number] 4mg Take 1 Univers 4 mg 3-06 tablet by ity of disintegrat 00:00: mouth [place] ing tablet 00 every 8 Medica l (eight) Branch hours as needed for Nausea and Vomiting (N/V) for up to 15 doses. ondansetron 2020-0 Yes [id number] 4mg Take 1 Univers 4 mg 3-06 tablet by ity of disintegrat 00:00: mouth [place] ing tablet 00 every 8 Medica l (eight) Branch hours as needed for Nausea and Vomiting (N/V) for up to 15 doses. ondansetron 2020-0 Yes [id number] 4mg Take 1 Univers 4 mg 3-06 tablet by ity of disintegrat 00:00: mouth [place] ing tablet 00 every 8 Medica l (eight) Branch hours as needed for Nausea and Vomiting (N/V) for up to 15 doses. ondansetron 2020-0 Yes [id number] 4mg Take 1 Univers 4 mg 3-06 tablet by ity of disintegrat 00:00: mouth [place] ing tablet 00 every 8 Medica l (eight) Branch hours as needed for Nausea and Vomiting (N/V) for up to 15 doses. ondansetron 2020-0 Yes [id number] 4mg Take 1 Univers 4 mg 3-06 tablet by ity of disintegrat 00:00: mouth [place] ing tablet 00 every 8 Medica l (eight) Branch hours as needed for Nausea and Vomiting (N/V) for up to 15 doses. ondansetron 2020-0 Yes [id number] 4mg Take 1 Univers 4 mg 3-06 tablet by ity of disintegrat 00:00: mouth [place] ing tablet 00 every 8 Medica l (eight) Branch hours as needed for Nausea and Vomiting (N/V) for up to 15 doses. ondansetron 2020-0 Yes [id number] 4mg Take 1 Univers 4 mg 3-06 tablet by ity of disintegrat 00:00: mouth [place] ing tablet 00 every 8 Medica l (eight) Branch hours as needed for Nausea and Vomiting (N/V) for up to 15 doses. ondansetron 2020-0 Yes [id number] 4mg Take 1 Univers 4 mg 3-06 tablet by ity of disintegrat 00:00: mouth [place] ing tablet 00 every 8 Medica l (eight) Branch hours as needed for Nausea and Vomiting (N/V) for up to 15 doses. ondansetron 2020-0 Yes [id number] 4mg Take 1 Univers 4 mg 3-06 tablet by ity of disintegrat 00:00: mouth [place] ing tablet 00 every 8 Medica l (eight) Branch hours as needed for Nausea and Vomiting (N/V) for up to 15 doses. ondansetron 2020-0 Yes [id number] 4mg Take 1 Univers 4 mg 3-06 tablet by ity of disintegrat 00:00: mouth [place] ing tablet 00 every 8 Medica l (eight) Branch hours as needed for Nausea and Vomiting (N/V) for up to 15 doses. ondansetron 2020-0 Yes [id number] 4mg Take 1 Univers 4 mg 3-06 tablet by ity of disintegrat 00:00: mouth [place] ing tablet 00 every 8 Medica l (eight) Branch hours as needed for Nausea and Vomiting (N/V) for up to 15 doses. ondansetron 2020-0 Yes [id number] 4mg Take 1 Univers 4 mg 3-06 tablet by ity of disintegrat 00:00: mouth [place] ing tablet 00 every 8 Medica l (eight) Branch hours as needed for Nausea and Vomiting (N/V) for up to 15 doses. ondansetron 2020-0 Yes [id number] 4mg Take 1 Univers 4 mg 3-06 tablet by ity of disintegrat 00:00: mouth [place] ing tablet 00 every 8 Medica l (eight) Branch hours as needed for Nausea and Vomiting (N/V) for up to 15 doses. ondansetron 2020-0 Yes [id number] 4mg Take 1 Univers 4 mg 3-06 tablet by ity of disintegrat 00:00: mouth [place] ing tablet 00 every 8 Medica l (eight) Branch hours as needed for Nausea and Vomiting (N/V) for up to 15 doses. ondansetron 2020-0 Yes [id number] 4mg Take 1 Univers 4 mg 3-06 tablet by ity of disintegrat 00:00: mouth [place] ing tablet 00 every 8 Medica l (eight) Branch hours as needed for Nausea and Vomiting (N/V) for up to 15 doses. ondansetron 2020-0 Yes [id number] 4mg Take 1 Univers 4 mg 3-06 tablet by ity of disintegrat 00:00: mouth [place] ing tablet 00 every 8 Medica l (eight) Branch hours as needed for Nausea and Vomiting (N/V) for up to 15 doses. ondansetron 2020-0 Yes [id number] 4mg Take 1 Univers 4 mg 3-06 tablet by ity of disintegrat 00:00: mouth [place] ing tablet 00 every 8 Medica l (eight) Branch hours as needed for Nausea and Vomiting (N/V) for up to 15 doses. ondansetron 2020-0 Yes [id number] 4mg Take 1 Univers 4 mg 3-06 tablet by ity of disintegrat 00:00: mouth [place] ing tablet 00 every 8 Medica l (eight) Branch hours as needed for Nausea and Vomiting (N/V) for up to 15 doses. ondansetron 2020-0 Yes [id number] 4mg Take 1 Univers 4 mg 3-06 tablet by ity of disintegrat 00:00: mouth [place] ing tablet 00 every 8 Medica l (eight) Branch hours as needed for Nausea and Vomiting (N/V) for up to 15 doses. ondansetron 2020-0 Yes [id number] 4mg Take 1 Univers 4 mg 3-06 tablet by ity of disintegrat 00:00: mouth [place] ing tablet 00 every 8 Medica l (eight) Branch hours as needed for Nausea and Vomiting (N/V) for up to 15 doses. ondansetron 2020-0 Yes [id number] 4mg Take 1 Univers 4 mg 3-06 tablet by ity of disintegrat 00:00: mouth [place] ing tablet 00 every 8 Medica l (eight) Branch hours as needed for Nausea and Vomiting (N/V) for up to 15 doses. ondansetron 2020-0 Yes [id number] 4mg Take 1 Univers 4 mg 3-06 tablet by ity of disintegrat 00:00: mouth [place] ing tablet 00 every 8 Medica l (eight) Branch hours as needed for Nausea and Vomiting (N/V) for up to 15 doses. ondansetron 2020-0 Yes [id number] 4mg Take 1 Univers 4 mg 3-06 tablet by ity of disintegrat 00:00: mouth [place] ing tablet 00 every 8 Medica l (eight) Branch hours as needed for Nausea and Vomiting (N/V) for up to 15 doses. ondansetron 2020-0 Yes [id number] 4mg Take 1 Univers 4 mg 3-06 tablet by ity of disintegrat 00:00: mouth [place] ing tablet 00 every 8 Medica l (eight) Branch hours as needed for Nausea and Vomiting (N/V) for up to 15 doses. ondansetron 2020-0 Yes [id number] 4mg Take 1 Univers 4 mg 3-06 tablet by ity of disintegrat 00:00: mouth [place] ing tablet 00 every 8 Medica l (eight) Branch hours as needed for Nausea and Vomiting (N/V) for up to 15 doses. ondansetron 2020-0 Yes [id number] 4mg Take 1 Univers 4 mg 3-06 tablet by ity of disintegrat 00:00: mouth [place] ing tablet 00 every 8 Medica l (eight) Branch hours as needed for Nausea and Vomiting (N/V) for up to 15 doses. ondansetron 2020-0 Yes [id number] 4mg Take 1 Univers 4 mg 3-06 tablet by ity of disintegrat 00:00: mouth [place] ing tablet 00 every 8 Medica l (eight) Branch hours as needed for Nausea and Vomiting (N/V) for up to 15 doses. ondansetron 2020-0 Yes [id number] 4mg Take 1 Univers 4 mg 3-06 tablet by ity of disintegrat 00:00: mouth [place] ing tablet 00 every 8 Medica l (eight) Branch hours as needed for Nausea and Vomiting (N/V) for up to 15 doses. ondansetron 2020-0 Yes [id number] 4mg Take 1 Univers 4 mg 3-06 tablet by ity of disintegrat 00:00: mouth [place] ing tablet 00 every 8 Medica l (eight) Branch hours as needed for Nausea and Vomiting (N/V) for up to 15 doses. ondansetron 2020-0 Yes [id number] 4mg Take 1 Univers 4 mg 3-06 tablet by ity of disintegrat 00:00: mouth [place] ing tablet 00 every 8 Medica l (eight) Branch hours as needed for Nausea and Vomiting (N/V) for up to 15 doses. ondansetron 2020-0 Yes [id number] 4mg Take 1 Univers 4 mg 3-06 tablet by ity of disintegrat 00:00: mouth [place] ing tablet 00 every 8 Medica l (eight) Branch hours as needed for Nausea and Vomiting (N/V) for up to 15 doses. ondansetron 2020-0 Yes [id number] 4mg Take 1 Univers 4 mg 3-06 tablet by ity of disintegrat 00:00: mouth [place] ing tablet 00 every 8 Medica l (eight) Branch hours as needed for Nausea and Vomiting (N/V) for up to 15 doses. ondansetron 2020-0 Yes [id number] 4mg Take 1 [facility] 4 mg 3-06 tablet by ity of disintegrat 00:00: mouth [place] ing tablet 00 every 8 Medica l (eight) Branch hours as needed for Nausea and Vomiting (N/V) for up to 15 doses. ondansetron 2020-0 2021- No [id number] 4mg Take 1 [facility] 4 mg 3-06 04-10 tablet by ity of disintegrat 00:00: [place] :00 every 8 Medica l (eight) Branch hours as needed for Nausea and Vomiting (N/V) for up to 15 doses. Amoxicillin Amoxicillin 2019-0 Yes M.A. 1 tablet [...] i ty of Tablet Tablet 00:00: TWICE [place] 00 DAILY. Physici ans Nicotine 14 Nicotine 14 2019-0 Yes M.A. QD APPLY 1 Univers MG/24HR MG/24HR 3-05 PATCH ity of Transdermal Transdermal 00:00: DAILY [place] Patch 24 Patch 24 00 DIRECTED. Ph [...] [place] mg 00 First dose Medical on [facility] 09/15/19 at 1700, Until Discontinu ed, Routine metoprolol 2020-0 Yes 50mg Take 50 mg U nivers succinate 3-03 by mouth ity of 50 mg CSpX 20:03: daily. [address] spironolact 2020-0 Yes 25mg Take 25 mg [facility] one 25 mg 3-03 by mouth ity of tablet 20:03: daily. [address] insulin NPH 2020-0 Yes 18U inject 18 U nivers human 3-03 Units ity of isophane 20:03: [place] (HUMULIN N 35 skin 2 Medical NPH INSULIN (two) Branch KWIKPEN SC) times daily. metoprolol 2020-0 Yes 50mg Take 50 mg U nivers succinate 3-03 by mouth ity of 50 mg CSpX 20:03: daily. [address] spironolact 2020-0 Yes 25mg Take 25 mg [facility] one 25 mg 3-03 by mouth ity of tablet 20:03: daily. [address] insulin NPH 2020-0 Yes 18U inject 18 U nivers human 3-03 Units ity of isophane 20:03: [place] (HUMULIN N 35 skin 2 Medical NPH INSULIN (two) Branch KWIKPEN SC) times daily. metoprolol 2020-0 Yes 50mg Take 50 mg U nivers succinate 3-03 by mouth ity of 50 mg CSpX 20:03: daily. [address] spironolact 2020-0 Yes 25mg Take 25 mg [facility] one 25 mg 3-03 by mouth ity of tablet 20:03: daily. [address] insulin NPH 2020-0 Yes 18U inject 18 U nivers human 3-03 Units ity of isophane 20:03: [place] (HUMULIN N 35 skin 2 Medical NPH INSULIN (two) Branch KWIKPEN SC) times daily. metoprolol 2020-0 Yes 50mg Take 50 mg U nivers succinate 3-03 by mouth ity of 50 mg CSpX 20:03: daily. [address] spironolact 2020-0 Yes 25mg Take 25 mg [facility] one 25 mg 3-03 by mouth ity of tablet 20:03: daily. [address] insulin NPH 2020-0 Yes 18U inject 18 U nivers human 3-03 Units ity of isophane 20:03: [place] (HUMULIN N 35 skin 2 Medical NPH INSULIN (two) Branch KWIKPEN SC) times daily. furosemide 2020-0 2020- No 40mg Take 40 mg [facility] 40 mg 3-03 03-03 by mouth ity of tablet 18:07: 00:00 daily. [place] 59 :00 [facility] Branch doxycycline 2020-0 Yes [id number] 100mg Take 1 [facility] hyclate 100 3-03 9103 capsule by it y of mg capsule 00:00: mouth [place] 00 every 12 Medical (twelve) Branch hours. furosemide 2020-0 Yes [id number] 40mg Take 1 [facility] 40 mg 3-03 9103 tablet by ity of tablet 00:00: mouth [place] 00 every Medical morning Branch and evening. lisinopril 2020-0 Yes [id number] 5mg Take 1 [facility] 5 mg tablet 3-03 9103 tablet by ity of 00:00: mouth 2 00 (two) Medical times Branch daily. amoxicillin 2020-0 Yes [id number] 1{tbl} Take 1 [facility] -clavulanat 3-03 9103 tablet by ity of e 00:00: mouth 2 [place] (AUGMENTIN) 00 (two) Medical 875-125 mg times Branch per tablet daily. doxycycline 2020-0 Yes [id number] 100mg Take 1 [facility] hyclate 100 3-03 9103 capsule by it y of mg capsule 00:00: mouth [place] 00 every 12 Medical (twelve) Branch hours. furosemide 2020-0 Yes [id number] 40mg Take 1 [facility] 40 mg 3-03 9103 tablet by ity of tablet 00:00: mouth [place] 00 every Medical morning Branch and evening. lisinopril 2020-0 Yes [id number] 5mg Take 1 [facility] 5 mg tablet 3-03 9103 tablet by ity of 00:00: mouth 2 (two) Medical times Branch daily. amoxicillin 2020-0 Yes [id number] 1{tbl} Take 1 [facility] -clavulanat 3-03 9103 tablet by ity of e 00:00: mouth 2 [place] (AUGMENTIN) 00 (two) Medical 875-125 mg times Branch per tablet daily. doxycycline 2020-0 Yes [id number] 100mg Take 1 [facility] hyclate 100 3-03 9103 capsule by it y of mg capsule 00:00: mouth [place] 00 every 12 Medical (twelve) Branch hours. furosemide 2020-0 Yes [id number] 40mg Take 1 [facility] 40 mg 3-03 9103 tablet by ity of tablet 00:00: mouth [place] 00 every Medical morning Branch and evening. lisinopril 2020-0 Yes [id number] 5mg Take 1 [facility] 5 mg tablet 3-03 9103 tablet by ity of 00:00: mouth 2 (two) Medical times Branch daily. amoxicillin 2020-0 Yes [id number] 1{tbl} Take 1 [facility] -clavulanat 3-03 9103 tablet by ity of e 00:00: mouth 2 [place] (AUGMENTIN) 00 (two) Medical 875-125 mg times Branch per tablet daily. doxycycline 2020-0 Yes [id number] 100mg Take 1 [facility] hyclate 100 3-03 9103 capsule by it y of mg capsule 00:00: mouth [place] 00 every 12 Medical (twelve) Branch hours. furosemide 2020-0 Yes [id number] 40mg Take 1 [facility] 40 mg 3-03 9103 tablet by ity of tablet 00:00: mouth [place] 00 every Medical morning Branch and evening. lisinopril 2020-0 Yes [id number] 5mg Take 1 [facility] 5 mg tablet 3-03 9103 tablet by ity of 00:00: mouth 2 [place] 00 (two) Medical times Branch daily. amoxicillin 2020-0 Yes [id number] 1{tbl} Take 1 [facility] -clavulanat 3-03 9103 tablet by ity of e 00:00: mouth 2 [place] (AUGMENTIN) 00 (two) Medical 875-125 mg times Branch per tablet daily. doxycycline 2020-0 Yes [id number] 100mg Take 1 [facility] hyclate 100 3-03 9103 capsule by it y of mg capsule 00:00: mouth [place] 00 every 12 Medical (twelve) Branch hours. furosemide 2020-0 Yes [id number] 40mg Take 1 [facility] 40 mg 3-03 9103 tablet by ity of tablet 00:00: mouth [place] 00 every Medical morning Branch and evening. lisinopril 2020-0 Yes [id number] 5mg Take 1 [facility] 5 mg tablet 3-03 9103 tablet by ity of 00:00: mouth 2 [place] 00 (two) Medical times Branch daily. amoxicillin 2020-0 Yes [id number] 1{tbl} Take 1 Univers -clavulanat 3-03 9103 tablet by ity of e 00:00: mouth 2 [place] (AUGMENTIN) 00 (two) Medical 875-125 mg times Branch per tablet daily. doxycycline 2020-0 Yes [id number] 100mg Take 1 [facility] hyclate 100 3-03 9103 capsule by it y of mg capsule 00:00: mouth [place] 00 every 12 Medical (twelve) Branch hours. furosemide 2020-0 Yes [id number] 40mg Take 1 [facility] 40 mg 3-03 9103 tablet by ity of tablet 00:00: mouth [place] 00 every Medical morning Branch and evening. furosemide 2020-0 Yes [id number] 40mg Take 1 [facility] 40 mg 3-03 9103 tablet by ity of tablet 00:00: mouth [place] 00 every Medical morning Branch and evening. furosemide 2020-0 Yes [id number] 40mg Take 1 [facility] 40 mg 3-03 9103 tablet by ity of tablet 00:00: mouth [place] 00 every Medical morning Branch and evening. lisinopril 2020-0 Yes [id number] 5mg Take 1 [facility] 5 mg tablet 3-03 9103 tablet by ity of 00:00: mouth 2 [place] 00 (two) Medical times Branch daily. amoxicillin 2020-0 Yes [id number] 1{tbl} Take 1 Univers -clavulanat 3-03 9103 tablet by ity of e 00:00: mouth 2 [place] (AUGMENTIN) 00 (two) Medical 875-125 mg times Branch per tablet daily. doxycycline 2020-0 Yes [id number] 100mg Take 1 [facility] hyclate 100 3-03 9103 capsule by it y of mg capsule 00:00: mouth [place] 00 every 12 Medical (twelve) Branch hours. furosemide 2020-0 Yes [id number] 40mg Take 1 [facility] 40 mg 3-03 9103 tablet by ity of tablet 00:00: mouth [place] 00 every Medical morning Branch and evening. lisinopril 2020-0 Yes [id number] 5mg Take 1 [facility] 5 mg tablet 3-03 9103 tablet by ity of 00:00: mouth 2 [place] 00 (two) Medical times Branch daily. amoxicillin 2020-0 Yes [id number] 1{tbl} Take 1 [facility] -clavulanat 3-03 9103 tablet by ity of e 00:00: mouth 2 [place] (AUGMENTIN) 00 (two) Medical 875-125 mg times Branch per tablet daily. doxycycline 2020-0 Yes [id number] 100mg Take 1 [facility] hyclate 100 3-03 9103 capsule by it y of mg capsule 00:00: mouth [place] 00 every 12 Medical (twelve) Branch hours. furosemide 2020-0 Yes [id number] 40mg Take 1 [facility] 40 mg 3-03 9103 tablet by ity of tablet 00:00: mouth [place] 00 every Medical morning Branch and evening. lisinopril 2020-0 Yes [id number] 5mg Take 1 [facility] 5 mg tablet 3-03 9103 tablet by ity of 00:00: mouth 2 [place] 00 (two) Medical times Branch daily. amoxicillin 2020-0 Yes [id number] 1{tbl} Take 1 [facility] -clavulanat 3-03 9103 tablet by ity of e 00:00: mouth 2 [place] (AUGMENTIN) 00 (two) Medical 875-125 mg times Branch per tablet daily. furosemide 2019-0 2020- No [id number] 40mg Take 1 [facility] 40 mg 09-14 9103 tablet by ity of tablet 00:00: 00:00 mouth [place] 00 :00 every Medical morning Branch and evening. furosemide 2019-0 2020- No [id number] 40mg Take 1 [facility] 40 mg 09-14 9103 tablet by ity of tablet 00:00: 00:00 mouth [place] 00 :00 every Medical morning Branch and evening. lisinopril 2019- 2020- No [id number] 5mg Take 1 [facility] 5 mg tablet 09-14 9103 tablet by it y of 00:00: 00:00 mouth 2 [place] 00 :00 (two) Medical times Branch daily. amoxicillin 2019- 2020- No [id number] 1{tbl} Take 1 [facility] -clavulanat 09-14 9103 tablet by it y of e 00:00: 00:00 mouth 2 [place] (AUGMENTIN) 00 :00 (two) Medical 875-125 mg times Branch per tablet daily. doxycycline 2019- 2020- No [id number] 100mg Take 1 [facility] hyclate 100 09-14 9103 capsule by i ty of mg capsule 00:00: 00:00 mouth [place] 00 :00 every 12 Medical (twelve) Branch hours. ceFEPIme 2019-0 Yes 1000mg 1,000 mg, Un michael (MAXIPIME) 09-13 IV ity of 1,000 mg in 17:45: Piggyback, [place] NaCl 0.9% 00 Q12H ABX, Medic al (NS) 50 mL First dose [facility] MINI-BAG on 09/14/19 at 1145, Until Discontinu ed, 50 mL
R russ for Anti-Infec tive: Empiric Therapy for Suspected Infection< br>Empiric Therapy Site: Respirator y
Durat ion of therapy: 72 hours bumetanide 2020- No 1mg 1 mg, Slow Univers (BUMEX) 09-13 IV Push, ity of injection 1 15:00: 16:50 Q8H, First [place] mg 00 :02 dose on Medical [facility] 09/14/19 Branch at 0900, Until Discontinu ed, Routine FENTanyl PF 2020-0 Yes 25ug 25 mcg, Uni vers (SUBLIMAZE 09-13 Slow IV ity of (PF)) 02:51: Push, [place] injection 25 Q6HPRN, Medical 25 mcg Starting Branch [place] 09/13/19 at 205, Until Discontinu ed, Routine, Pain (scale 7-10) azithromyci 2020-0 Yes 500mg 500 mg, Un michael n 3- Oral, ity of (ZITHROMAX) 15:00: DAILY, [place] tablet 500 00 First dose Med ical mg on [facility] 09/13/19 at 0900, Until Discontinu ed, KATHY
Re ason for Anti-Infec tive: Empiric Therapy for Suspected Infection< br>Empiric Therapy Site: Respirator y
Durat ion of therapy: 72 hours enoxaparin 2020-0 Yes 40mg 40 mg, Unive rs (LOVENOX) 3 Subcutaneo ity of injection 15:00: [place], [place]ILY, [place] 40 mg 00 First dose Medical on [facility] 09/13/19 at 0900, Until Discontinu ed, Routine insulin NPH 2020-0 Yes 18U 18 Units, U nivers (HUMULIN N) 09-12 Subcutaneo it y of injection 15:00: us, [place] 18 Units 00 QAM+PM, Medical First dose Branch on [place] 09/13/19 at 0900, Until Discontinu ed clopidogreL 2020-0 Yes 75mg 75 mg, Univ ers (PLAVIX) 09-12 Oral, ity of tablet 75 15:00: DAILY, [place] mg 00 First dose Medical on [facility] 09/13/19 at 0900, Until Discontinu ed, Routine aspirin 2020-0 Yes 81mg 81 mg, Univers chewable 09-12 Oral, ity of tablet 81 15:00: DAILY, [place] mg 00 First dose Medical on [facility] 09/13/19 at 0900, Until Discontinu ed, Routine lisinopril 2020-0 Yes 5mg 5 mg, Univer s (PRINIVIL,Z 3- Oral, BID, it y of ESTRIL) 14:00: First [place] tablet 5 mg 00 on [facility] 09/13/19 at Branch 0800, Until Discontinu [...] 1mg 1 mg, Slow Univers (BUMEX) 09-12 IV Push, ity of injection 1 04:00: 20:30 Q8H, 3 [place] mg 00 :00 doses, Medical First dose Branch on [facility] 09/12/19 at 2200, Last dose on [place] 09/13/19 at 1400, Routine atorvastati 2020-0 Yes 80mg 80 mg, Univ ers n (LIPITOR) 09-12 Oral, QHS, it y of tablet 80 03:00: First dose [place] mg 00 on [facility] Medical 09/12/19 at Branch 2100, Until Discontinu ed, Routine Sliding 2020-0 Yes Subcutaneo Univ ers Scale 3 us, TID ity of Insulin - 03:00: MEALS+HS, [place] as Lispro 00 First dose Medical (HumaLOG) + on [facility] Branch Fsbg 09/12/19 at Testing 2100, Until Discontinu ed, Routine benzonatate 2020-0 Yes 100mg 100 mg, Un michael (TESSALON 09-12 Oral, ity of PERLES) 02:26: Q6HPRN, [place] capsule 100 20 Starting Medi lizzy mg Sat Branch 09/12/19 at 2026, Until Discontinu ed, Routine, Cough ipratropium 2020-0 Yes .5mg 0.5 mg, Uni vers (ATROVENT) 09-12 Inhalation ity of 0.02 % 02:00: , QID, [place] nebulizer 00 First dose Medi lizzy solution on Sat Branch 0.5 mg 09/12/19 at 1999, Until Discontinu ed, Routine docusate 2020-0 Yes 100mg 100 mg, Unive rs (COLACE) 09-12 Oral, BID, ity o f capsule 100 02:00: First dose [place] mg 00 on [facility] Medical 09/12/19 at Branch 2000, Until Discontinu ed, Routine ondansetron 2020-0 Yes 4mg 4 mg, Slow Univers (ZOFRAN 09-12 IV Push, ity of (PF)) 00:11: Q6HPRN, [place] injection 4 27 Starting Medi lizzy mg [facility] Branch 09/12/19 at 1811, Until Discontinu ed, Routine, Nausea and Vomiting (N/V) acetaminoph 2020-0 Yes 650mg 650 mg, Un michael en 09-12 Oral, ity of (TYLENOL) 00:11: Q6HPRN, [place] tablet 650 19 Starting Medic al mg [facility] Branch 09/12/19 at 1811, Until Discontinu [...] Bra nch 09/12/19 at 1200, Routine azithromyci 2020- No [...] of 1,000 mg in 17:00: 16:57 [place], [place] NaCl 0.9% 00 :00 ONCE, 1 Medical [...] ity of 50 mg CSpX 20:31: daily. [address] spironolact 2020-0 Yes 25mg Take 25 mg Univers one 25 mg 2-24 by mouth ity of tablet 20:31: daily. [address] furosemide 2020-0 Yes 40mg Take 40 mg U nivers 40 mg 2-24 by mouth ity of tablet 20:31: daily. [address] insulin NPH 2019-0 Yes 18U inject 18 U nivers human 2-24 Units ity of isophane 20:31: [place] (HUMULIN N 45 skin 2 Medical NPH INSULIN (two) Branch KWIKPEN SC) times daily. metoprolol 2020-0 Yes 50mg Take 50 mg U nivers succinate 2-24 by mouth ity of 50 mg CSpX 20:31: daily. [address] spironolact 2020-0 Yes 25mg Take 25 mg Univers one 25 mg 2-24 by mouth ity of tablet 20:31: daily. [address] furosemide 2020-0 Yes 40mg Take 40 mg U nivers 40 mg 2-24 by mouth ity of tablet 20:31: daily. [address] insulin NPH 2020-0 Yes 18U inject 18 U nivers human 2-24 Units ity of isophane 20:31: under the [place] (HUMULIN N 45 skin 2 Medical NPH INSULIN (two) Branch KWIKPEN SC) times daily. metoprolol 2020-0 Yes 50mg Take 50 mg U nivers succinate 2-24 by mouth ity of 50 mg CSpX 20:31: daily. [address] spironolact 2020-0 Yes 25mg Take 25 mg Univers one 25 mg 2-24 by mouth ity of tablet 20:31: daily. [address] furosemide 2020-0 Yes 40mg Take 40 mg U nivers 40 mg 2-24 by mouth ity of tablet 20:31: daily. [address] insulin NPH 2020-0 Yes 18U inject 18 U nivers human 2-24 Units ity of isophane 20:31: under the [place] (HUMULIN N 45 skin 2 Medical NPH INSULIN (two) Branch KWIKPEN SC) times daily. clopidogreL 2020-0 Yes [id number] 75mg Take 1 Univers 75 mg 2-24 tablet by ity of tablet 00:00: mouth [place] 00 daily. [facility] Branch nicotine 14 2020-0 Yes [id number] 1{patch Apply 1 Univers mg/24 hr 2-24 } Patch to ity of patch 00:00: area(s) [place] 00 every 24 Medical (twenty-fo Branch ur) hours. clopidogreL 2020-0 Yes [id number] 75mg Take 1 Univers 75 mg 2-24 tablet by ity of tablet 00:00: mouth [place] 00 daily. [facility] nicotine 14 2020-0 Yes [id number] 1{patch Apply 1 Univers mg/24 hr 2-24 } Patch to ity of patch 00:00: area(s) [place] 00 every 24 Medical (twenty-fo Branch ur) hours. clopidogreL 2020-0 Yes [id number] 75mg Take 1 [facility] 75 mg 2-24 tablet by ity of tablet 00:00: mouth [place] 00 daily. Medical Branch nicotine 14 2020-0 Yes [id number] 1{patch Apply 1 [facility] mg/24 hr 2-24 } Patch to ity of patch 00:00: area(s) [place] 00 every 24 Medical (twenty-fo Branch ur) hours. clopidogreL 2020-0 Yes [id number] 75mg Take 1 [facility] 75 mg 2-24 tablet by ity of tablet 00:00: mouth [place] 00 daily. Medical Branch nicotine 14 2020-0 Yes [id number] 1{patch Apply 1 [facility] mg/24 hr 2-24 } Patch to ity of patch 00:00: [facility](s) [place] 00 every 24 Medical (twenty-fo Branch ur) hours. clopidogreL 2020-0 Yes [id number] 75mg Take 1 [facility] 75 mg 2-24 tablet by ity of tablet 00:00: mouth [place] 00 daily. Medical Branch nicotine 14 2020-0 Yes [id number] 1{patch Apply 1 [facility] mg/24 hr 2-24 } Patch to ity of patch 00:00: [facility](s) [place] 00 every 24 Medical (twenty-fo Branch ur) hours. clopidogreL 2020-0 Yes [id number] 75mg Take 1 [facility] 75 mg 2-24 tablet by ity of tablet 00:00: mouth [place] 00 daily. Medical Branch nicotine 14 2020-0 Yes [id number] 1{patch Apply 1 Univers mg/24 hr 2-24 } Patch to ity of patch 00:00: [facility](s) [place] 00 every 24 Medical (twenty-fo Branch ur) hours. clopidogreL 2020-0 Yes [id number] 75mg Take 1 [facility] 75 mg 2-24 tablet by ity of tablet 00:00: mouth [place] 00 daily. Medical Branch nicotine 14 2020-0 Yes [id number] 1{patch Apply 1 Univers mg/24 hr 2-24 } Patch to ity of patch 00:00: [facility](s) [place] 00 every 24 Medical (twenty-fo Branch ur) hours. clopidogreL 2020-0 Yes [id number] 75mg Take 1 [facility] 75 mg 2-24 tablet by ity of tablet 00:00: mouth [place] 00 daily. Medical Branch nicotine 14 2020-0 Yes [id number] 1{patch Apply 1 [facility] mg/24 hr 2-24 } Patch to ity of patch 00:00: area(s) [place] 00 every 24 Medical (twenty-fo Branch ur) hours. nicotine 14 2020-0 Yes [id number] 1{patch Apply 1 [facility] mg/24 hr 2-24 } Patch to ity of patch 00:00: [facility](s) [place] 00 every 24 Medical (twenty-fo Branch ur) hours. nicotine 14 2020-0 Yes [id number] 1{patch Apply 1 Univers mg/24 hr 2-24 } Patch to ity of patch 00:00: area(s) [place] 00 every 24 Medical (twenty-fo Branch ur) hours. nicotine 14 2020-0 Yes [id number] 1{patch Apply 1 Univers mg/24 hr 2-24 } Patch to ity of patch 00:00: [facility](s) [place] 00 every 24 Medical (twenty-fo Branch ur) hours. nicotine 14 2020-0 Yes [id number] 1{patch Apply 1 [facility] mg/24 hr 2-24 } Patch to ity of patch 00:00: [facility](s) [place] 00 every 24 Medical (twenty-fo Branch ur) hours. nicotine 14 2019-0 Yes [id number] 1{patch Apply 1 [facility] mg/24 hr 2-24 } Patch to ity of patch 00:00: [facility](s) [place] 00 every 24 Medical (twenty-fo Branch ur) hours. nicotine 14 2019-0 Yes [id number] 1{patch Apply 1 [facility] mg/24 hr 2-24 } Patch to ity of patch 00:00: [facility](s) [place] 00 every 24 Medical (twenty-fo Branch ur) hours. nicotine 14 2020-0 Yes [id number] 1{patch Apply 1 [facility] mg/24 hr 2-24 } Patch to ity of patch 00:00: area(s) [place] 00 every 24 Medical (twenty-fo Branch ur) hours. nicotine 14 2020-0 Yes [id number] 1{patch Apply 1 Univers mg/24 hr 2-24 } Patch to ity of patch 00:00: [facility](s) [place] 00 every 24 Medical (twenty-fo Branch ur) hours. nicotine 14 2020-0 Yes [id number] 1{patch Apply 1 [facility] mg/24 hr 2-24 } Patch to ity of patch 00:00: [facility](s) [place] 00 every 24 Medical (twenty-fo Branch ur) hours. nicotine 14 2020-0 Yes [id number] 1{patch Apply 1 [facility] mg/24 hr 2-24 } Patch to ity of patch 00:00: area(s) [place] 00 every 24 Medical (twenty-fo Branch ur) hours. nicotine 14 2020-0 Yes [id number] 1{patch Apply 1 Univers mg/24 hr 2-24 } Patch to ity of patch 00:00: area(s) [place] 00 every 24 Medical (twenty-fo Branch ur) hours. nicotine 14 2020-0 Yes [id number] 1{patch Apply 1 Univers mg/24 hr 2-24 } Patch to ity of patch 00:00: area(s) [place] 00 every 24 Medical (twenty-fo Branch ur) hours. nicotine 14 2020-0 Yes [id number] 1{patch Apply 1 Univers mg/24 hr 2-24 } Patch to ity of patch 00:00: [facility](s) [place] 00 every 24 Medical (twenty-fo Branch ur) hours. nicotine 14 2020-0 Yes [id number] 1{patch Apply 1 Univers mg/24 hr 2-24 } Patch to ity of patch 00:00: area(s) [place] 00 every 24 Medical (twenty-fo Branch ur) hours. nicotine 14 2020-0 Yes [id number] 1{patch Apply 1 Univers mg/24 hr 2-24 } Patch to ity of patch 00:00: area(s) [place] 00 every 24 Medical (twenty-fo Branch ur) hours. nicotine 14 2020-0 Yes [id number] 1{patch Apply 1 Univers mg/24 hr 2-24 } Patch to ity of patch 00:00: area(s) [place] 00 every 24 Medical (twenty-fo Branch ur) hours. nicotine 14 2020-0 Yes [id number] 1{patch Apply 1 Univers mg/24 hr 2-24 } Patch to ity of patch 00:00: area(s) [place] 00 every 24 Medical (twenty-fo Branch ur) hours. nicotine 14 2020-0 Yes [id number] 1{patch Apply 1 Univers mg/24 hr 2-24 } Patch to ity of patch 00:00: area(s) [place] 00 every 24 Medical (twenty-fo Branch ur) hours. nicotine 14 2020-0 Yes [id number] 1{patch Apply 1 Univers mg/24 hr 2-24 } Patch to ity of patch 00:00: area(s) [place] 00 every 24 Medical (twenty-fo Branch ur) hours. nicotine 14 2020-0 Yes [id number] 1{patch Apply 1 [facility] mg/24 hr 2-24 } Patch to ity of patch 00:00: area(s) [place] 00 every 24 Medical (twenty-fo Branch ur) hours. nicotine 14 2020-0 Yes [id number] 1{patch Apply 1 [facility] mg/24 hr 2-24 } Patch to ity of patch 00:00: [facility](s) [place] 00 every 24 Medical (twenty-fo Branch ur) hours. nicotine 14 2020-0 Yes [id number] 1{patch Apply 1 Univers mg/24 hr 2-24 } Patch to ity of patch 00:00: area(s) [place] 00 every 24 Medical (twenty-fo Branch ur) hours. nicotine 14 2020-0 Yes [id number] 1{patch Apply 1 [facility] mg/24 hr 2-24 } Patch to ity of patch 00:00: [facility](s) [place] 00 every 24 Medical (twenty-fo Branch ur) hours. nicotine 14 2020-0 Yes [id number] 1{patch Apply 1 [facility] mg/24 hr 2-24 } Patch to ity of patch 00:00: [facility](s) [place] 00 every 24 Medical (twenty-fo Branch ur) hours. nicotine 14 2020-0 Yes [id number] 1{patch Apply 1 Univers mg/24 hr 2-24 } Patch to ity of patch 00:00: [facility](s) [place] 00 every 24 Medical (twenty-fo Branch ur) hours. nicotine 14 2020-0 Yes [id number] 1{patch Apply 1 Univers mg/24 hr 2-24 } Patch to ity of patch 00:00: [facility](s) [place] 00 every 24 Medical (twenty-fo Branch ur) hours. nicotine 14 2020-0 Yes [id number] 1{patch Apply 1 [facility] mg/24 hr 2-24 } Patch to ity of patch 00:00: area(s) [place] 00 every 24 Medical (twenty-fo Branch ur) hours. nicotine 14 2020-0 Yes [id number] 1{patch Apply 1 [facility] mg/24 hr 2-24 } Patch to ity of patch 00:00: [facility](s) [place] 00 every 24 Medical (twenty-fo Branch ur) hours. nicotine 14 2020-0 Yes [id number] 1{patch Apply 1 [facility] mg/24 hr 2-24 } Patch to ity of patch 00:00: [facility] 00 every 24 Medical (twenty-fo Branch ur) hours. nicotine 14 2020-0 Yes [id number] 1{patch Apply 1 [facility] mg/24 hr 2-24 } Patch to ity of patch 00:00: [facility]() [place] 00 every 24 Medical (twenty-fo Branch ur) hours. nicotine 14 2020-0 Yes [id number] 1{patch Apply 1 [facility] mg/24 hr 2-24 } Patch to ity of patch 00:00: [facility]() [place] 00 every 24 Medical (twenty-fo Branch ur) hours. nicotine 14 2020-0 Yes [id number] 1{patch Apply 1 [facility] mg/24 hr 2-24 } Patch to ity of patch 00:00: [facility]() [place] 00 every 24 Medical (twenty-fo Branch ur) hours. nicotine 14 2020-0 Yes [id number] 1{patch Apply 1 [facility] mg/24 hr 2-24 } Patch to ity of patch 00:00: [facility] 00 every 24 Medical (twenty-fo Branch ur) hours. nicotine 14 2020-0 Yes [id number] 1{patch Apply 1 [facility] mg/24 hr 2-24 } Patch to ity of patch 00:00: [facility]([place] [id number] every 24 Medical (twenty-fo Branch ur) hours. nicotine 14 2020-0 Yes [id number] 1{patch Apply 1 [facility] mg/24 hr 2-24 } Patch to ity of patch 00:00: [facility]() [place] [id number] every 24 Medical (twenty-fo Branch ur) hours. nicotine 14 2020-0 Yes [id number] 1{patch Apply 1 [facility] mg/24 hr 2-24 } Patch to ity of patch 00:00: [facility]() [place] 00 every 24 Medical (twenty-[facility] Branch ur) hours. nicotine 14 2020-0 Yes [id number] 1{patch Apply 1 Univers mg/24 hr 2-24 } Patch to ity of patch 00:00: [facility]() [place] [address] every 24 Medical (twenty-fo Branch ur) hours. clopidogreL 2020-0 Yes [id number] 75mg Take 1 Univers 75 mg 2-24 tablet by ity of tablet 00:00: mouth [place] 00 daily. Medical Branch nicotine 14 2020-0 Yes [id number] 1{patch Apply 1 Univers mg/24 hr 2-24 } Patch to ity of patch 00:00: [facility] [place] 00 every 24 Medical (twenty-fo Branch ur) hours. clopidogreL 2020-0 Yes [id number] 75mg Take 1 Univers 75 mg 2-24 tablet by ity of tablet 00:00: mouth [place] 00 daily. Medical Branch nicotine 14 2020-0 Yes [id number] 1{patch Apply 1 Univers mg/24 hr 2-24 } Patch to ity of patch 00:00: [facility] [place] 00 every 24 Medical (twenty-fo Branch ur) hours. clopidogreL 2020-0 Yes [id number] 75mg Take 1 Univers 75 mg 2-24 tablet by ity of tablet 00:00: mouth [place] 00 daily. Medical Branch nicotine 14 2020-0 Yes [id number] 1{patch Apply 1 Univers mg/24 hr 2-24 } Patch to ity of patch 00:00: [facility] [place] 00 every 24 Medical (twenty-fo Branch ur) hours. clopidogreL 2020-0 Yes [id number] 75mg Take 1 Univers 75 mg 2-24 tablet by ity of tablet 00:00: mouth [place] 00 daily. Medical Branch nicotine 14 2020-0 Yes [id number] 1{patch Apply 1 Univers mg/24 hr 2-24 } Patch to ity of patch 00:00: [facility] [place] 00 every 24 Medical ([facility] ur) hours. clopidogreL 2020-0 Yes [id number] 75mg Take 1 Univers 75 mg 2-24 tablet by ity of tablet 00:00: mouth [place] 00 daily. Medical Branch nicotine 14 2020-0 Yes [id number] 1{patch Apply 1 Univers mg/24 hr 2-24 } Patch to ity of patch 00:00: [facility] [place] 00 every 24 Medical ([facility] ur) hours. nicotine 14 2019-0 2020- No [id number] 1{patch Apply 1 Univers mg/24 hr 2-24 04-10 } Patch to ity of patch 00:00: 00:00 area(s) [place] 00 :00 every 24 Medical (twentyfo Branch ur) hours. clopidogreL 2020-0 2020- No [id number] 75mg Take 1 Univers 75 mg 2-24 04-06 tablet by ity of tablet 00:00: 00:00 mouth [place] 00 :00 daily. Medical Branch clopidogreL 2020-0 2020- No [id number] 75mg Take 1 Univers 75 mg 2-24 04-06 tablet by ity of tablet 00:00: 00:00 mouth [place] 00 :00 daily. Medical Branch insulin 2020-0 2020- No 20U inject 20 Univ ers glargine,hu - 02-23 Units ity of m.rec.anlog 15:33: 00:00 under the [place] (LANTUS 20 :00 skin 2 Medical U-100 (two) [place] INSULIN SC) times daily. insulin 2019-0 2020- No inject Univers aspart 09-06- under the ity of injection 15:33: 00:00 skin [place] 20 :00 before Medical meals. [place] HYDROcodone 2020-0 Yes 1{tbl} 1 tablet, Univers -acetaminop - Oral, ity of hen (NORCO 15:04: Q6HPRN, [place] 5) 5-325 mg 54 Starting Medi lizzy tablet 1 [facility] tablet 09/06/19 at 0904, Until Discontinu ed, Routine, Pain (scale 4-6) insulin 2019-0 Yes 40U 40 Units, Unive rs glargine 2-23 Subcutaneo ity o f (LANTUS 14:06: us, Q24H, [place] U-100) 00 First dose Medical injection on [facility] 40 Units 09/06/19 at 0815, Until Discontinu ed SERTraline 2019-0 Yes 50mg 50 mg, Unive rs (ZOLOFT) 2-23 Oral, QHS, ity o f tablet 50 03:00: First dose [place] mg 00 on [facility] 09/05/19 at [place] 2100, Until Discontinu ed, Routine docusate 2019-0 Yes 100mg 100 mg, Unive rs (COLACE) 2-23 Oral, BID, ity o f capsule 100 02:00: First dose [place] mg 00 on [facility] 09/05/19 at [place] 2000, Until Discontinu ed, Routine atorvastati 2020-0 Yes [id number] 80mg Take 1 Univers n 80 mg 2-23 tablet by ity of tablet 00:00: mouth at [place] 00 bedtime. [facility] atorvastati 2020-0 Yes [id number] 80mg Take 1 Univers n 80 mg 2-23 tablet by ity of tablet 00:00: mouth at [place] 00 bedtime. [facility] atorvastati 2020-0 Yes [id number] 80mg Take 1 Univers n 80 mg 2-23 tablet by ity of tablet 00:00: mouth at [place] 00 bedtime. Medical Branch atorvastati 2020-0 Yes [id number] 80mg Take 1 Univers n 80 mg 2-23 tablet by ity of tablet 00:00: mouth at [place] [address] bedtime. Medical Branch atorvastati 2020-0 Yes [id number] 80mg Take 1 Univers n 80 mg 2-23 tablet by ity of tablet 00:00: mouth at [place] [address] bedtime. Medical Branch atorvastati 2020-0 Yes [id number] 80mg Take 1 Univers n 80 mg 2-23 tablet by ity of tablet 00:00: mouth at [place] [address] bedtime. Medical Branch atorvastati 2020-0 Yes [id number] 80mg Take 1 Univers n 80 mg 2-23 tablet by ity of tablet 00:00: mouth at [place] [address] bedtime. Medical Branch atorvastati 2020-0 Yes [id number] 80mg Take 1 Univers n 80 mg 2-23 tablet by ity of tablet 00:00: mouth at [place] [address] bedtime. Medical Branch atorvastati 2020-0 Yes [id number] 80mg Take 1 Univers n 80 mg 2-23 tablet by ity of tablet 00:00: mouth at [place] [address] bedtime. Medical Branch atorvastati 2020-0 Yes [id number] 80mg Take 1 Univers n 80 mg 2-23 tablet by ity of tablet 00:00: mouth at [place] [address] bedtime. Medical Branch atorvastati 2020-0 Yes [id number] 80mg Take 1 Univers n 80 mg 2-23 tablet by ity of tablet 00:00: mouth at [place] [address] bedtime. Medical Branch atorvastati 2020-0 Yes [id number] 80mg Take 1 Univers n 80 mg 2-23 tablet by ity of tablet 00:00: mouth at [place] [address] bedtime. Medical Branch atorvastati 2020-0 Yes [id number] 80mg Take 1 Univers n 80 mg 2-23 tablet by ity of tablet 00:00: mouth at [place] [address] bedtime. Medical Branch atorvastati 2020-0 2020- No [id number] 80mg Take 1 Univers n 80 mg 2-23 04-06 tablet by ity of tablet 00:00: 00:00 mouth at [place] 00 :00 bedtime. Medical Branch atorvastati 2020-0 2020- No [id number] 80mg Take 1 Univers n 80 mg 2-23 04-06 tablet by ity of tablet 00:00: 00:00 mouth at [place] 00 :00 bedtime. Medical Branch Sliding 2020-0 Yes Subcutaneo Univ ers Scale 2-22 us, AC+HS, ity of Insulin - 17:30: First dose [place] Aspart 00 on [facility] Medical (NOVOLOG) + 09/05/19 at [facility] Fsbg 1130, Testing Until Discontinu ed, Routine ipratropium 2020-0 Yes 3mL 3 mL, Unive rs -albuterol - Inhalation ity of (DUONEB) 14:45: , Q6HPRN, [place] 0.5 mg-3 00 Starting Medical mg(2.5 mg [facility] base)/3 mL 09/05/19 at nebulizer 0845, solution 3 Until mL Discontinu ed, Routine, Wheezing, Shortness of Breath, Bronchospa sm ondansetron 2020-0 Yes 4mg 4 mg, Slow Univers (ZOFRAN - IV Push, ity of (PF)) 14:43: Q6HPRN, [place] injection 4 22 Starting Medi lizzy mg [facility] 09/05/19 at 0843, Until Discontinu ed, Routine, Nausea and Vomiting (N/V) KCL 20 2020-0 2020- No 20meq 20 mEq, Univer s mEq/15 mL 09-05- Oral, ity of solution 20 11:45: 11:29 ONCE, 1 [place] mEq 00 :00 dose, [facility] Medical 09/05/19 at Branch 0545, Routine [...] Fri Medi lizzy (4 %) 09/04/19 at [place] infusion 2 0730, g Routine KCL 2020-0 [...] 09/03/19 at 0900, Until Discontinu ed, Routine
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 Restricted medication : JENIFFER MORAN [...] at 0800, Until Discontinu ed, Routine metoprolol Yes 25mg 25 mg, Unive rs tartrate [...] maximum allowed dose, contact prescriber .
protamine 2020- No 50mg 50 mg, IV Un michael [...] Branch infusion 2 1615, g Routine calcium 2020-0 2020- No 1000mg 1,000 [...] 2020- No 300ug 300 mcg, Uni vers PETAL CUTTER (5 2-18 02-19 Intravenou ity of mcg/mL NS) 20:30: 03:59 s, 60 mL, [place] 00 :16 CONTINUOUS Medical , Starting Branch Sat09/01/19 at 1430, Until Sat09/01/19 at 2159 propofol IV 0 2019- No 5ug/kg/ 5-75 Un michael infusion 09-01 02-19 min mcg/kg/min ity of 20:13: 20:12 ?78.3 kg [place] 05 :05 (2.349-35. Medical 235 mL/hr, Branch [...] mg 00 First dose Medical on Sat [place] 09/01/19 at 1330, Until Discontinu ed, Routine [...] 4mg 4 mg, Slow Univers (ZOFRAN 2-18 -22 IV Push, ity of (PF)) 19:19: 14:51 Q6HPRN, [place] injection 4 32 :48 Starting Medi lizzy mg [facility] 09/01/19 at 1319, Until 09/05/19 at 0851, KATHY, Nausea and Vomiting (N/V) naloxone 2020-0 Yes .1mg 0.1 mg, Univer s (NARCAN) 2-18 Slow IV ity of injection 19:17: Push, [place] 0.1 mg 45 SEE-IN[facility] Starting [facility] 09/01/19 at 1317, Until Discontinu ed, Routine furosemide 2020-0 Yes 20mg 20 mg, IV Un michael (LASIX) 2-18 Push, PRN, ity of injection 19:13: 2 doses, [place] 20 mg 07 Starting Medical [facility] 09/01/19 at 1313, Until Discontinu ed, KATHY, Pressure Maintenanc e NaCl 0.9% 2020-0 Yes 250mL at 999 Unive rs (NS) bolus 2-18 mL/hr, 250 ity of infusion 19:13: mL, IV [place] 250 mL 07 Infusion, Medical PRN - SEE [place] INSTRUCTIO NS, 3 doses, Starting [facility] 09/01/19 at 1313, Until Discontinu ed, KATHY glucagon 2020-0 Yes 1mg 1 mg, Univers (GLUCAGEN 2-18 Intramuscu ity of DIAGNOSTIC 19:13: lar, PRN, [place] KIT) 06 Starting Medical injection 1 [facility] 09/01/19 at 1313, Until Discontinu [...] 09-01 Rectal, ity of (TYLENOL) 19:13: Q6HPRN, [place] suppository 05 Starting Medi lizzy 650 mg Tue Branch 09/01/19 at 1313, Until Discontinu ed, KATHY, Temp > 38.5 C gentamicin 2020-0 Yes PRN, Univers 40 mg/mL 80 09-01 Starting ity of mg, 14:28: Tue [place] vancomycin 00 09/01/19 at Med ical (VANCOCIN) 0828, Branch 1,000 mg in Intra-op NaCl 0.9% (NS) 1,000 mL OR irrigation heparin 2020-0 Yes PRN, Univers 1,000 - Starting ity of unit/mL 14:27: e [place] 5,000 Units 00 09/01/19 at [place] dical in NaCl 0827, Branch 0.9% (NS) [...] 41 1 dose, Medica l Starting Branch 08/31/19 at 1317, Until Discontinu ed, Routine, Wound [...] First dose [place] mg 00 on [facility] 08/25/19 at Branch 2100, Until Discontinu ed, Routine furosemide 2020-0 2020- No 40mg 40 mg, Univ ers (LASIX) 08-25 Oral, ity of tablet 40 23:00: 16:15 QAM+PM, [place] mg 00 :13 First dose Medical on [facility] 08/25/19 at 1700, Until Discontinu ed, Routine magnesium 2020-0 2020- No 296mL 296 mL, Uni vers citrate 08-25 Oral, ity of solution 23:00: 23:22 ONCE, 1 [place] 296 mL 00 :00 dose, [facility] Medical 08/25/19 at Branch 1700, Routine [...] Mon Med ical .74 -5.86 08/24/19 at [facility] gram 1700, solution Routine 4,000 mL furosemide 2019-0 2020- No 20mg 20 mg, IV U nivers (LASIX) 08-23-09 Push, ity of injection 17:00: 18:04 ONCE, 1 [place] 20 mg 00 :00 dose, [place] Medical 08/23/19 at Branch 1100, Routine metoprolol 2020-0 2020- No 50mg 50 mg, Univ ers tartrate 08-22- Oral, BID, ity of (LOPRESSOR) 02:00: 13:17 First dose [place] tablet 50 00 :43 on Sat Medical mg 08/21/19 at Branch 1999, Until Discontinu ed, Routine furosemide 2019- No 40mg 40 mg, Univ ers (LASIX) [...] ity of (XYLOCAINE) 00:11: 00:11 TITRATE - [place] injection 01 :01 FOR Medical PROCEDURE Branch USE, 1 dose, Starting Sat08/21/19 at 1811, Until 08/21/19 at 1811, Routine FENTanyl PF 2019- 2020- No Slow IV Un michael (SUBLIMAZE 08-22 Push, ity of (PF)) 00:08: 00:08 TITRATE - [place] injection 29 :29 FOR Medical PROCEDURE Branch USE, 1 dose, Starting 08/21/19 at 1808, Until 08/21/19 at 1808, Routine midazolam 2019-0 2020- No IV Push, Uni vers (VERSED) 08-22 TITRATE - ity o f injection 00:08: 00:08 FOR [place] 23 :23 PROCEDURE Medical USE, 1 Branch dose, Starting 08/21/19 at 1808, Until 08/21/19 at 1808, Routine atorvastati 2019-2019- No 40mg 40 mg, Uni vers n (LIPITOR) 08-21 Oral, QPM, i ty of tablet 40 23:00: 15:59 First dose [place] mg 00 :09 on Sat Medical 08/21/19 at Branch 1700, Until Discontinu ed, Routine pantoprazol 2020-0 Yes 40mg 40 mg, Univ ers e 07 Oral, ity of (PROTONIX) 15:00: DAILY, [place] [...] 08/21/19 at 0900, Until Discontinu ed, Routine
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 Restricted medication : JENIFFER MORAN heparin 2020-0 2020- No 5000U 5,000 Univers (porcine) 08-21 Units, ity of injection 12:00: 19:23 Subcutaneo [place] 5,000 Units 00 :06 us, Q8H, Medi lizzy First dose Branch on Sat08/21/19 at 0600, Until Discontinu ed, Routine nicotine 2020-0 Yes 1{patch 1 Patch, Un michael (NICODERM) 08-21 } Topical, ity o f 21 mg/24 hr 04:15: Administer [place] patch 1 00 over 24 Medical Patch Hours, Branch Q24H, First dose on [facility] 08/20/19 at 2215, Until Discontinu ed, Routine Sliding 2020-0 2020- No Subcutaneo Uni vers Scale 08-2122 us, Q4H, ity of Insulin - 03:15: 14:43 First dose [place] Aspart 00 :46 on [facility] Medical (NOVOLOG) + 08/20/19 at [facility] Fsbg 2115, Testing Until Discontinu ed, Routine metoprolol 2020-0 2020- No 25mg 25 mg, Univ ers tartrate 08-21 Oral, Q6H, ity of [...] Until Discontinu ed, Routine, Chest pain morpHINE 2020-0 Yes 2mg 2 mg, Slow Uni vers injection 2 08-21 IV Push, ity of mg 03:06: Q2HPRN, [place] 08 Starting Medical [place] 08/20/19 Branch at [...] 1 [place] injection 4 00 :00 dose, [facility] Med ical mg 08/20/19 at Branch 1930, Routine ondansetron 2019- 2020- No 4mg 4 mg, Slow Univers (ZOFRAN 08-20 IV Push, ity of (PF)) 22:00: 19:29 Q6HPRN, [place] injection 4 19 :34 Starting Medi lizzy mg [facility] 08/20/19 Branch at 1600, Until 09/01/19 at 1329, Routine, Nausea and Vomiting (N/V) [...] [place] mg 00 :55 on Sat [facility] 08/19/19 at Branch 2100, Until Discontinu ed, Routine KCL 2019- 2020- No 40meq 40 mEq, Univers (KLOR-CON 08-20 Oral, BID, ity of M20) tablet 02:00: 15:08 First dose [place] 40 mEq 00 :22 on [facility] 08/19/19 at Branch 2000, Until Discontinu ed, Routine KCL 2020-0 2020- No 40meq 40 mEq, Univers (KLOR-CON 08-19 Oral, ONCE ity of M20) tablet 15:30: 15:02 NOW, 1 [place] 40 mEq 00 :00 dose, [facility] 08/19/19 at Branch 0930, Routine clopidogreL 2019- 2020- No 75mg 75 mg, Uni vers (PLAVIX) 08-19 Oral, ity of tablet 75 15:00: 03:12 DAILY, [place] mg 00 :55 First dose Medical on [facility] 08/19/19 at 0900, Until Discontinu ed, Routine aspirin 2019- 2020- No 81mg 81 mg, Univers chewable 08-19 Oral, ity of tablet 81 15:00: 03:12 DAILY, [place] mg 00 :55 First dose Medical on Sat Branch 08/19/19 at 0900, Until Discontinu ed, Routine enoxaparin 2020-0 2020- No 40mg 40 mg, [place] [facility] ers (LOVENOX) 08-19 Subcutaneo ity of injection [...] Subcutaneo ity of human 13:30: us, BIDAC, [place] (HUMULIN R) 00 First dose Me dical [...] o f human 05:30: 05:28 us, ONCE, [place] (HUMULIN R) 00 :00 1 dose, Medic al injection 7 Sat08/18/19 Br anch Units at 2330, Routine furosemide 2020-0 2020- No 40mg 40 mg, [place] [facility] ers (LASIX) 08-19- Slow IV ity of injection 04:00: 15:29 Push, Q8H, [place] 40 mg 00 :06 First dose Medical on Sat Branch 2/4/20 at 2200, Until Discontinu ed, Routine spironolact 2019- 2020- No 50mg 50 mg, Uni vers one 08-19 Oral, BID, ity of (ALDACTONE) 04:00: 03:12 First dose [place] tablet 50 00 :55 on [facility] Medical mg 08/18/19 at Branch 2200, Until Discontinu ed, Routine Sliding 2019- 2020- No Subcutaneo Uni vers Scale 08-19 us, AC+HS, ity of Insulin-Reg 03:00: 03:12 First dose [place] ular + Fsbg 00 :55 on [facility] Medica l Testing 08/18/19 at Branch 2100, Until Discontinu ed, Routine insulin 2019- No 20U 20 Units, [place] [facility] ers glargine 08-19 Subcutaneo ity of (LANTUS 02:00: 14:43 , BID, [place] U-100) 00 :46 First dose Medical injection on [facility] Branch 20 Units 08/18/19 at 2000, Until Discontinu ed metoprolol 2019- No 50mg 50 mg, Univ ers succinate 08-19 Oral, BID, ity of XL (TOPROL 02:00: 03:12 First dose [place] XL) tablet 00 :55 on [facility] Medical 50 mg 08/18/19 at Branch 2000, Until Discontinu ed nicotine 2019-2019- No 1{patch 1 Patch, U nivers (NICODERM) 08-19 } Topical, ity of 21 mg/24 hr 00:45: 03:12 Administer [place] patch 1 00 :55 over 24 Medical Patch Hours, Branch Q24H, First dose on 08/18/19 at 1845, Until Discontinu ed, Routine furosemide 2020- No 40mg 40 mg, IV U nivers (LASIX) 08-18 0204 Push, ity of injection 23:30: 22:38 ONCE, 1 [place] 40 mg 00 :00 dose, [facility] Medical 08/18/19 at Branch 1730, KATHY acetaminoph 2019-0 Yes 650mg 650 mg, Un michael en 04 Oral, ity of (TYLENOL) 22:56: Q6HPRN, [place] tablet 650 29 Starting Medic al mg [facility] 08/18/19 Branch at 1656, Until Discontinu ed, Routine, Pain (scale 1-3) acetaminoph 2018-07 2020- No [id number] 1{tbl} Take 1 Univers en-codeine 0-09 02-04 tablet by ity of (TYLENOL-CO 00:00: 00:00 mouth [place] DEINE #3) 00 :00 every 4 Medical 300-30 mg (four) Branch tablet hours as needed for Pain (scale 4-6) or Pain (scale 7-10). ferrous Yes [id number] 325mg Take 1 Un [place]ichael sulfate 8-31 tablet by ity of (FERROUSUL) 00:00: mouth 3 You as 325 mg (65 00 (three) Medica l mg iron) times Branch tablet daily with meals. ferrous Yes [id number] 325mg Take 1 Un [place] sulfate 8-31 tablet by ity of (FERROUSUL) 00:00: mouth 3 [place] as 325 mg (65 00 (three) Medica l mg iron) times Branch tablet daily with meals. ferrous Yes [id number] 325mg Take 1 Un [place]ichael sulfate 8-31 tablet by ity of (FERROUSUL) 00:00: mouth 3 You as 325 mg (65 00 (three) Medica l mg iron) times Branch tablet daily with meals. ferrous Yes [id number] 325mg Take 1 Un [place]ichael sulfate 8-31 tablet by ity of (FERROUSUL) 00:00: mouth 3 You as 325 mg (65 00 (three) Medica l mg iron) times Branch tablet daily with meals. ferrous Yes [id number] 325mg Take 1 Un [place]ichael sulfate 8-31 tablet by ity of (FERROUSUL) 00:00: mouth 3 You as 325 mg (65 00 (three) Medica l mg iron) times Branch tablet daily with meals. ferrous Yes [id number] 325mg Take 1 Un [place]ichael sulfate 8-31 tablet by ity of (FERROUSUL) 00:00: mouth 3 [place] as 325 mg (65 00 (three) Medica l mg iron) times Branch tablet daily with meals. ferrous Yes [id number] 325mg Take 1 Un [place]ichael sulfate 8-31 tablet by ity of (FERROUSUL) 00:00: mouth 3 You as 325 mg (65 00 (three) Medica l mg iron) times Branch tablet daily with meals. ferrous 2018- Yes [id number] 325mg Take 1 Un michael sulfate 8-31 tablet by ity of (FERROUSUL) 00:00: mouth 3 You as 325 mg (65 00 (three) Medica l mg iron) times Branch tablet daily with meals. ferrous 2018- Yes [id number] 325mg Take 1 Un michael sulfate 8-31 tablet by ity of (FERROUSUL) 00:00: mouth 3 You as 325 mg (65 00 (three) Medica l mg iron) times Branch tablet daily with meals. ferrous 2018- Yes [id number] 325mg Take 1 Un michael sulfate 8-31 tablet by ity of (FERROUSUL) 00:00: mouth 3 You as 325 mg (65 00 (three) Medica l mg iron) times Branch tablet daily with meals. ferrous 2017- Yes [id number] 325mg Take 1 Un michael sulfate 8-31 tablet by ity of (FERROUSUL) 00:00: mouth 3 You as 325 mg (65 00 (three) Medica l mg iron) times Branch tablet daily with meals. ferrous 2020- No [id number] 325mg Take 1 U nivers sulfate 8-31 [...] of tablet 00:00: mouth [place] 00 daily. [facility] Branch aspirin 81 2018-0 Yes 81mg Take 1 Unive rs mg chewable 4-06 tablet by ity of tablet 00:00: mouth [place] 00 daily. [facility] Branch aspirin 81 2018-0 Yes 81mg Take [...] Units ity of human 00:00: under the [place] (HUMULIN R 00 skin 2 Medical U-100) [...] Units ity of human 00:00: under the [place] (HUMULIN R 00 skin 2 Medical U-100) [...] Units ity of human 00:00: under the [place] (HUMULIN R 00 skin 2 Medical U-100) 100 (two) Branch unit/mL times injection daily before breakfast and dinner. insulin 2018-0 Yes 12U inject 12 Unive rs regular 3-14 Units ity of human 00:00: under the [place] (HUMULIN R 00 skin 2 Medical U-100) 100 (two) Branch unit/mL times injection daily before breakfast and dinner. insulin 2018-0 Yes 12U inject 12 Unive rs regular 3-14 Units ity of human 00:00: under the [place] (HUMULIN R 00 skin 2 Medical U-100) 100 (two) Branch unit/mL times injection daily before breakfast and dinner. insulin 2018-0 Yes 12U inject 12 Unive rs regular 3-14 Units ity of human 00:00: under the [place] (HUMULIN R 00 skin 2 Medical U-100) 100 (two) Branch unit/mL times injection daily before breakfast and dinner. insulin 2018-0 Yes 12U inject 12 Unive rs regular 3-14 Units ity of human 00:00: under the [place] (HUMULIN R 00 skin 2 Medical U-100) [...] injection daily before breakfast and dinner. insulin No Check Univers regular 3-12 02-23 Blood [...] Immunizations Ordered Filled Immunization Date Status Comments [facility] e Immunization Name Name TDAP (ADACEL) 2019-09-18 Completed University of VACCINE 00:00:00 [place] [facility] Branch TDAP (ADACEL) 2019-09-18 Completed University of VACCINE 00:00:00 [place] [facility] TDAP (ADACEL) 2019-09-18 Completed University of VACCINE 00:00:00 [place] [facility] TDAP (ADACEL) 2019-09-18 Completed University of VACCINE 00:00:00 [place] [facility] TDAP (ADACEL) 2019-09-18 Completed University of VACCINE 00:00:00 [place] [facility] TDAP (ADACEL) 2019-09-18 Completed University of VACCINE 00:00:00 [place] [facility] TDAP (ADACEL) 2019-09-18 Completed University of VACCINE 00:00:00 [place] [facility] TDAP (ADACEL) 2019-09-18 Completed University of VACCINE 00:00:00 [place] [facility] TDAP (ADACEL) 2019-09-18 Completed University of VACCINE 00:00:00 [place] [facility] TDAP (ADACEL) 2019-09-18 Completed University of VACCINE 00:00:00 [place] [facility] TDAP (ADACEL) 2019-09-18 Completed University of VACCINE 00:00:00 [place] [facility] TDAP (ADACEL) 2019-09-18 Completed University of VACCINE 00:00:00 [place] [facility] TDAP (ADACEL) 2019-09-18 Completed University of VACCINE 00:00:00 [place] [facility] TDAP (ADACEL) 2019-09-18 Completed University of VACCINE 00:00:00 [place] [facility] TDAP (ADACEL) 2019-09-18 Completed University of VACCINE 00:00:00 [place] [facility] TDAP (ADACEL) 2019-09-18 Completed University of VACCINE 00:00:00 [place] [facility] TDAP (ADACEL) 2019-09-18 Completed University of VACCINE 00:00:00 [place] [facility] TDAP (ADACEL) 2019-09-18 Completed University of VACCINE 00:00:00 [facility] Branch TDAP (ADACEL) 2019-09-18 Completed University of VACCINE 00:00:00 [place] [facility] TDAP (ADACEL) 2019-09-18 Completed University of VACCINE 00:00:00 [facility] Branch TDAP (ADACEL) 2019-09-18 Completed University of VACCINE 00:00:00 [facility] Branch TDAP (ADACEL) 2019-09-18 Completed University of VACCINE 00:00:00 [facility] Branch TDAP (ADACEL) 2019-09-18 Completed University of VACCINE 00:00:00 [facility] Branch TDAP (ADACEL) 2019-09-18 Completed University of VACCINE 00:00:00 [facility] Branch TDAP (ADACEL) 2019-09-18 Completed University of VACCINE 00:00:00 [facility] Branch TDAP (ADACEL) 2019-09-18 Completed University of VACCINE 00:00:00 [facility] Branch TDAP (ADACEL) 2019-09-18 Completed University of VACCINE 00:00:00 [facility] Branch TDAP (ADACEL) 2019-09-18 Completed University of VACCINE 00:00:00 [facility] Branch TDAP (ADACEL) 2019-09-18 Completed University of VACCINE 00:00:00 [facility] Branch TDAP (ADACEL) 2019-09-18 Completed University of VACCINE 00:00:00 [facility] Branch TDAP (ADACEL) 2019-09-18 Completed University of VACCINE 00:00:00 [facility] Branch TDAP (ADACEL) 2019-09-18 Completed University of VACCINE 00:00:00 [place] [facility] TDAP (ADACEL) 2019-09-18 Completed University of VACCINE 00:00:00 [place] [facility] TDAP (ADACEL) 2019-09-18 Completed University of VACCINE 00:00:00 [facility] TDAP (ADACEL) 2019-09-18 Completed University of VACCINE 00:00:00 [facility] TDAP (ADACEL) 2019-09-18 Completed University of VACCINE 00:00:00 [facility] TDAP (ADACEL) 2019-09-18 Completed University of VACCINE 00:00:00 [facility] TDAP (ADACEL) 2019-09-18 Completed [facility] of VACCINE 00:00:00 [facility] TDAP (ADACEL) 2019-09-18 Completed University of VACCINE 00:00:00 [facility] TDAP (ADACEL) 2019-09-18 Completed [facility] of VACCINE 00:00:00 [facility] TDAP (ADACEL) 2019-09-18 Completed [facility] of VACCINE 00:00:00 [facility] TDAP (ADACEL) 2019-09-18 Completed [facility] of VACCINE 00:00:00 [facility] TDAP (ADACEL) 2019-09-18 Completed [facility] of VACCINE 00:00:00 [facility] TDAP (ADACEL) 2019-09-18 Completed University of VACCINE 00:00:00 [facility] TDAP (ADACEL) 2019-09-18 Completed University of VACCINE 00:00:00 [facility] TDAP (ADACEL) 2019-09-18 Completed University of VACCINE 00:00:00 [facility] TDAP (ADACEL) 2019-09-18 Completed University of VACCINE 00:00:00 [facility] TDAP (ADACEL) 2019-09-18 Completed [facility] VACCINE 00:00:00 [facility] TDAP (ADACEL) 2019-09-18 Completed [facility] of VACCINE 00:00:00 [facility] TDAP (ADACEL) 2019-09-18 Completed University of VACCINE 00:00:00 [facility] TDAP (ADACEL) 2019-09-18 Completed [facility] of VACCINE 00:00:00 [facility] TDAP (ADACEL) 2019-09-18 Completed [facility] of VACCINE 00:00:00 [facility] TDAP (ADACEL) 2019-09-18 Completed [facility] of VACCINE 00:00:00 [facility] TDAP (ADACEL) 2019-09-18 Completed [facility] VACCINE 00:00:00 [facility] TDAP (ADACEL) 2019-09-18 Completed [facility] of VACCINE 00:00:00 [facility] TDAP (ADACEL) 2019-09-18 Completed [facility] VACCINE 00:00:00 [facility] TDAP (ADACEL) 2019-09-18 Completed [facility] VACCINE 00:00:00 [facility] TDAP (ADACEL) 2019-09-18 Completed [facility] of VACCINE 00:00:00 [facility] TDAP (ADACEL) 2019-09-18 Completed University of VACCINE 00:00:00 [facility] Pneumococcal 2017-09-23 Completed University o f Polysaccharide, 00:00:00 [place] [facility] PPSV23 (PNEUMOVAX) [facility] Pneumococcal 2017-09-23 [...] 2017-09-23 Completed University o f Polysaccharide, 00:00:00 [facility] PPSV23 (PNEUMOVAX) [facility] Vital Signs Vital Name Observation Time Observation Value Comments Source Systolic blood 2020-11-09 144 mm[Hg] [facility] pressure 13:12:00 [facility] Diastolic blood 2020-11-09 58 mm[Hg] [place] o f pressure 13:12:00 [facility] Heart rate 2020-11-09 61 /min University of 13:12: [facility] Respiratory rate 2020-11-09 18 /min University of 13:12:00 [facility] Oxygen saturation 2020-11-09 100 /min University of in Arterial blood 13:12: [facility] lizzy by Pulse oximetry Branch Body temperature 2020-11-09 36.89 Bernadine University of 09:00:00 [facility] Body height 2020-11-07 190.5 cm University of 19:10: [facility] Body weight 2020-11-07 72.576 kg University of 19:10: [facility] BMI 2020-11-07 20.00 kg/m2 University of 19:10: [facility] Systolic blood 2020-05-03 157 mm[Hg] University of pressure 21:02:00 [facility] Diastolic blood 2020-05-03 82 mm[Hg] University o f pressure 21:02:00 [facility] Heart rate 2020-05-03 59 /min University of 21:02:00 [facility] Respiratory rate 2020-05-03 18 /min University of 21:02:00 [facility] Oxygen saturation 2020-05-03 100 /min University of in Arterial blood 21:02:00 [facility] lizzy by Pulse oximetry Branch Body temperature 2020-05-03 37 Bernadine University of 18:42:00 [facility] Body height 2020-05-03 182.9 cm University of 18:42:00 [facility] Body weight 2020-05-03 72.576 kg University of 18:42:00 [facility] BMI 2020-05-03 21.70 kg/m2 University of 18:42:00 [facility] Systolic blood 2019-10-28 152 mm[Hg] University of pressure 12:52:00 [facility] Diastolic blood 2019-10-28 77 mm[Hg] University o f pressure 12:52:00 [facility] Heart rate 2019-10-28 69 /min University of 12:52:00 [facility] Body temperature 2019-10-28 36.78 Bernadine University of 12:52:00 [facility] Respiratory rate 2019-10-28 20 /min University of 12:52:00 [facility] Oxygen saturation 2019-10-28 97 /min University of in Arterial blood 12:52:00 [facility] lizzy by Pulse oximetry Branch Body height 2019-10-27 182.9 cm University of 06:06:00 [facility] Body weight 2019-10-27 74.98 kg University of 06:06:00 [facility] BMI 2019-10-27 22.42 kg/m2 University of 06:06:00 [facility] Systolic blood 2019-10-12 147 mm[Hg] University of pressure 18:07:00 [facility] Diastolic blood 2019-10-12 73 mm[Hg] University o f pressure 18:07:00 [facility] Heart rate 2019-10-12 80 /min University of 18:07:00 [facility] Body temperature 2019-10-12 35.22 Bernadine University of 18:07:00 [facility] Respiratory rate 2019-10-12 16 /min University of 18:07:00 [facility] Body weight 2019-10-12 75.751 kg University of 18:07:00 [facility] BMI 2019-10-12 22.65 kg/m2 University of 18:07:00 [facility] Oxygen saturation 2019-10-12 98 /min University of in Arterial blood 18:07:[address] [facility] by Pulse oximetry Branch Systolic blood 2019-10-01 136 mm[Hg] University of pressure 21:37:00 [facility] Diastolic blood 2019-10-01 59 mm[Hg] University o f pressure 21:37:00 [facility] Heart rate 2019-10-01 78 /min University of 21:37:00 [facility] Body temperature 2019-10-01 36.83 Bernadine University of 21:37:00 [facility] Respiratory rate 2019-10-01 18 /min University of 21:37:00 [facility] Oxygen saturation 2019-10-01 91 /min [place] of in Arterial blood 21:37:[address] [facility] by Pulse oximetry [place] Body height 2019-09-30 182.9 cm University of :30:00 [facility] Body weight 2019-09-30 77.8 kg University of 00:30:00 [facility] BMI 2019-09-30 23.26 kg/m2 University of 00:30:00 [facility] Systolic blood 2019-09-28 142 mm[Hg] University of pressure 17:50:00 [facility] Diastolic blood 2019-09-28 68 mm[Hg] University o f pressure 17:50:00 [facility] Heart rate 2019-09-28 77 /min University of 17:50:00 [facility] Body temperature 2019-09-28 36.89 Bernadine University of 17:50:00 [facility] Respiratory rate 2019-09-28 16 /min University of 17:50:00 [facility] Body weight 2019-09-28 72.213 kg University of 17:50:00 [facility] BMI 2019-09-28 21.59 kg/m2 University of 17:50:00 [facility] Oxygen saturation 2019-09-28 99 /min University [facility] in Arterial blood 17:50:00 [place] [facility] Pulse oximetry [facility] Systolic blood 2019-09-21 132 mm[Hg] University of pressure 18:11:00 [facility] Diastolic blood 2019-09-21 70 mm[Hg] University o f pressure 18:11:00 [facility] Heart rate 2019-09-21 79 /min University of 18:11:00 [facility] Body temperature 2019-09-21 36.33 Bernadine University of 18:11:00 [facility] Respiratory rate 2019-09-21 16 /min University of 18:11:00 [facility] Body weight 2019-09-21 71.668 kg University of 18:11:00 [facility] BMI 2019-09-21 21.43 kg/m2 University of 18:11:00 [facility] Oxygen saturation 2019-09-21 97 /min University of in Arterial blood 18:11:00 [facility] lizzy by Pulse oximetry Branch Systolic blood 2019-09-19 162 mm[Hg] University of pressure 02:30:00 [facility] Diastolic blood 2019-09-19 76 mm[Hg] University o f pressure 02:30:00 [facility] Heart rate 2019-09-19 81 /min University of 02:30:00 [facility] Respiratory rate 2019-09-19 19 /min University of 02:30:00 [facility] Oxygen saturation 2019-09-19 96 /min University of in Arterial blood 02:30:00 [facility] lizzy by Pulse oximetry Branch Body temperature 2019-09-19 37.28 Bernadine University of 00:05:00 [facility] Body height 2019-09-19 182.9 cm University of 00:05:00 [facility] Body weight 2019-09-19 73.483 kg University of 00:05:00 [facility] BMI 2019-09-19 21.97 kg/m2 University of 00:05:00 [facility] Systolic blood 2019-09-15 128 mm[Hg] University of pressure 18:00:00 [facility] Diastolic blood 2019-09-15 66 mm[Hg] University o f pressure 18:00:00 [facility] Heart rate 2019-09-15 77 /min University of 18:00:00 [facility] Body temperature 2019-09-15 36.94 [place] University of 18:00:00 [facility] Respiratory rate 2019-09-15 17 /min University of 18:00:00 [facility] Oxygen saturation 2019-09-15 99 /min University of in Arterial blood 18:00:00 [facility] Pulse oximetry [facility] Body weight 2019-09-12 80 kg University of 15:21:00 [facility] BMI 2019-09-12 23.92 kg/m2 University of 15:21:00 [facility] Systolic blood 2019-09-07 135 mm[Hg] University of pressure 18:00:00 [facility] Diastolic blood 2019-09-07 75 mm[Hg] University o f pressure 18:00:00 [facility] Heart rate 2019-09-07 70 /min University of 18:00:00 [facility] Respiratory rate 2019-09-07 23 /min University of 18:00:00 [facility] Oxygen saturation 2019-09-07 95 /min University of in Arterial blood 18:00:00 [facility] lizzy by Pulse oximetry Branch Body temperature 2019-09-07 36.83 Bernad[place] University of 14:00:00 [facility] Body height 2019-09-04 182.9 cm University of 06:00:00 [facility] Body weight 2019-09-04 73.2 kg University of 06:00:00 [facility] BMI 2019-09-04 21.89 kg/m2 University of 06:00:00 [facility] Systolic blood 2020-11-09 144 mm[Hg] University of pressure 13:12:00 [facility] Diastolic blood 2020-11-09 58 mm[Hg] University o f pressure 13:12:00 [facility] Heart rate 2020-11-09 61 /min University of 13:12:00 [facility] Respiratory rate 2020-11-09 18 /min University of 13:12:00 [facility] Oxygen saturation 2020-11-09 100 /min University of in Arterial blood 13:12:00 [facility] Pulse oximetry [facility] Body temperature 2020-11-09 36.89 Bernad[place] University of 09:00:00 [facility] Body height 2020-11-07 190.5 cm University of 19:10:00 [facility] Body weight 2020-11-07 72.576 kg University of 19:10:00 [facility] BMI 2020-11-07 20.00 kg/m2 University of 19:10:00 [facility] Heart rate 2020-11-06 69 /min University of 16:48:00 [facility] Respiratory rate 2020-11-06 18 /min University of 16:48:00 [facility] Oxygen saturation 2020-11-06 99 /min [facility] in Arterial blood 16:48:[address] [facility] by Pulse oximetry [place] Systolic blood 2020-11-06 122 mm[Hg] [place] of pressure 16:38:00 [facility] Diastolic blood 2020-11-06 57 mm[Hg] University o f pressure 16:38:00 [facility] Body temperature 2020-11-06 37.17 Bernadine [facility] 16:38:00 [facility] Body weight 2020-11-03 73 kg University of 01:00:00 [facility] BMI 2020-11-03 20.12 kg/m2 University of 01:00:00 [facility] Body height 2020-10-22 190.5 cm [place] of 16:30:00 [facility] Systolic blood 2019-09-29 155 mm[Hg] Location: [facility]; [place] [facility] 16:23:00 Position: [place] [facility] Diastolic blood 2019-09-29 68 mm[Hg] Location: [facility] 16:23:00 Position: [facility] Body height 2019-09-29 72 [in_us] University [facility] 16:23:00 [facility] Weight 2019-09-29 163 [lb_av] University [facility] 16:23:00 [facility] Body mass index 2019-09-29 22.11 kg/m2 University o f (BMI) [Ratio] 16:23:00 [facility] Body temperature 2019-09-29 97.9 [degF] Method: Oral [facility] 16:23:00 [place] [facility] Heart Rate 2019-09-29 75 /min [place] of 16:23:00 [facility] Procedures Procedure Date / Time Performing Source Performed Clinician DME/SUPPLY JUSTIFICATION 2020-12-16 Doctor Univers ity of 05:01:00 Unassigned, No [facility] DNR 2020-11-16 [facility] of 05:01:00 Unassigned, No [facility] POCT GLUCOSE (AUTOMATED) 2020-11-09 David Howell sity of 16:50:00 J [facility] POCT GLUCOSE (AUTOMATED) 2020-11-09 David Howell sity of 16:50:00 [facility] CBC WITHOUT DIFF 2020-11-09 [facility] of 10:56:00 [facility] BASIC METABOLIC PANEL (NA, K, CL, 2020-11-09 [facility] of CO2, GLUCOSE, BUN, CREATININE, CA) 10:56:00 [facility] MAGNESIUM 2020-11-09 [facility] of 10:56:00 [facility] MAGNESIUM 2020-11-09 [facility] 10:56:00 [facility] BASIC METABOLIC PANEL (NA, K, CL, 2020-11-09 [facility] of CO2, GLUCOSE, BUN, CREATININE, CA) 10:56:00 [facility] CBC WITHOUT DIFF 2020-11-09 [facility] of 10:56:00 [facility] POCT GLUCOSE (AUTOMATED) 2020-11-09 David Howell sity of 10:55:00 J [facility] POCT GLUCOSE (AUTOMATED) 2020-11-09 David Howell sity of 10:55:00 J [facility] POCT GLUCOSE (AUTOMATED) 2020-11-09 David Howell sity of 05:23:00 J [facility] POCT GLUCOSE (AUTOMATED) 2020-11-09 David Howell sity of 05:23:00 J [facility] POCT GLUCOSE (AUTOMATED) 2020-11-08 David Howell sity of 23:22:00 J [facility] POCT GLUCOSE (AUTOMATED) 2020-11-08 David Howell sity of 23:22:00 J [facility] POCT GLUCOSE (AUTOMATED) 2020-11-08 David Howell sity of 15:47:00 J [facility] POCT GLUCOSE (AUTOMATED) 2020-11-08 David Howell sity of 15:47:00 J [facility] POCT GLUCOSE (AUTOMATED) 2020-11-08 David Howell Univer sity of 11:15:00 J [facility] POCT GLUCOSE (AUTOMATED) 2020-11-08 David Howell Univer sity of 11:15:00 J [facility] CBC WITH DIFF 2020-11-08 [facility] of 09:53:00 [facility] BASIC METABOLIC PANEL (NA, K, CL, 2020-11-08 [facility] of CO2, GLUCOSE, BUN, CREATININE, CA) 09:53:00 [facility] BASIC METABOLIC PANEL (NA, K, CL, 2020-11-08 [facility] of CO2, GLUCOSE, BUN, CREATININE, CA) 09:53:00 [facility] CBC WITH DIFF 2020-11-08 [facility] of 09:53:00 [facility] POCT GLUCOSE (AUTOMATED) 2020-11-08 David Howell Univer sity of 05:42:00 J [facility] POCT GLUCOSE (AUTOMATED) 2020-11-08 David Howell Univer sity of 05:42:00 J [facility] POCT GLUCOSE (AUTOMATED) 2020-11-07 David Howell Univer sity of 22:01:00 J [facility] POCT GLUCOSE (AUTOMATED) 2020-11-07 David Howell Univer sity of 22:01:00 J [facility] POCT GLUCOSE (AUTOMATED) 2020-11-07 David Howell Univer sity of 13:13:00 J [facility] POCT GLUCOSE (AUTOMATED) 2020-11-07 David Howell Univer sity of 13:13:00 J [facility] POCT GLUCOSE (AUTOMATED) 2020-11-07 David Howell Univer sity of 10:26:00 J [facility] POCT GLUCOSE (AUTOMATED) 2020-11-07 David Howell Univer sity of 10:26:00 J [facility] DIFF [facility] of 09:49:00 [facility] BASIC METABOLIC PANEL (NA, K, CL, 2020-11-07 [facility] of CO2, GLUCOSE, BUN, CREATININE, CA) 09:49:00 [facility] MAGNESIUM 2020-11-07 [facility] of 09:49:00 [facility] MAGNESIUM 2020-11-07 [facility] of 09:49:00 [facility] BASIC METABOLIC PANEL (NA, K, CL, 2020-11-07 [facility] of CO2, GLUCOSE, BUN, CREATININE, CA) 09:49:00 [facility] CBC WITHOUT DIFF 2020-11-07 [facility] of 09:49:00 [facility] POCT GLUCOSE (AUTOMATED) 2020-11-07 David Howell Univloi sity of 05:13:00 J [facility] POCT GLUCOSE (AUTOMATED) 2020-11-07 David Howell Univer sity of 05:13:00 J [facility] POCT GLUCOSE (AUTOMATED) 2020-11-06 David Howell Univer sity of 22:48:00 J [facility] POCT GLUCOSE (AUTOMATED) 2020-11-06 David Howell Univer sity of 22:48:00 J [facility] POCT GLUCOSE (AUTOMATED) 2020-11-06 David Howell Univer sity of 16:49:00 J [facility] POCT GLUCOSE (AUTOMATED) 2020-11-06 David Howell Univer sity of 16:49:00 J [facility] POCT GLUCOSE (AUTOMATED) 2020-11-06 David Howell sity of 11:11:00 J [facility] POCT GLUCOSE (AUTOMATED) 2020-11-06 David Howell Univer sity of 11:11:00 J [facility] CBC WITHOUT DIFF 2020-11-06 [facility] of 10:42:00 [facility] BASIC METABOLIC PANEL (NA, K, CL, 2020-11-06 [facility] of CO2, GLUCOSE, BUN, CREATININE, CA) 10:42:00 [facility] MAGNESIUM 2020-11-06 [facility] of 10:42:00 [facility] MAGNESIUM 2020-11-06 [facility] of 10:42:00 [facility] BASIC METABOLIC PANEL (NA, K, CL, 2020-11-06 Trae [facility] of CO2, GLUCOSE, BUN, CREATININE, CA) 10:42:00 [facility] CBC WITHOUT DIFF 2020-11-06 [facility] of 10:42:00 [facility] POCT GLUCOSE (AUTOMATED) 2020-11-06 David Howell sity of 05:07:00 J [facility] POCT GLUCOSE (AUTOMATED) 2020-11-06 David Howell sity of 05:07:00 J [facility] POCT GLUCOSE (AUTOMATED) 2020-11-05 David Howell sity of 18:40:00 J [facility] POCT GLUCOSE (AUTOMATED) 2020-11-05 David Howell [facility] sity of 18:40:00 J [facility] URINE CULTURE 2020-11-05 Trae [facility] of 14:56:00 [facility] URINE CULTURE 2020-11-05 [facility] of 14:56:00 [facility] BLOOD CULTURE SCREEN 2020-11-05 [facility] of 14:54:00 [facility] BLOOD CULTURE SCREEN 2020-11-05 [facility] of 14:54:00 [facility] BLOOD CULTURE SCREEN 2020-11-05 [facility] of 14:44:00 [facility] BLOOD CULTURE SCREEN 2020-11-05 [facility] of 14:44:00 [facility] XR CHEST 1 VW 2020-11-05 [facility] of 12:03:32 [facility] XR CHEST 1 VW 2020-11-05 [facility] of 12:03:32 [facility] POCT GLUCOSE (AUTOMATED) 2020-11-05 [facility]ell sity of 11:13:00 J [facility] POCT GLUCOSE (AUTOMATED) 2020-11-05 David Howell sity of 11:13:00 J [facility] CBC WITHOUT DIFF 2020-11-05 [facility] of 09:31:00 [facility] BASIC METABOLIC PANEL (NA, K, CL, 2020-11-05 [facility] of CO2, GLUCOSE, BUN, CREATININE, CA) 09:31:00 [facility] MAGNESIUM 2020-11-05 [facility] of 09:31:00 [facility] MAGNESIUM 2020-11-05 [facility] of 09:31:00 [facility] BASIC METABOLIC PANEL (NA, K, CL, 2020-11-05 [facility] of CO2, GLUCOSE, BUN, CREATININE, CA) 09:31:00 [facility] CBC WITHOUT DIFF 2020-11-05 [facility] of 09:31:00 [facility] POCT GLUCOSE (AUTOMATED) 2020-11-05 David Howell sity of 04:54:00 J [facility] POCT GLUCOSE (AUTOMATED) 2020-11-05 David Howell Univer sity of 04:54:00 J [facility] POCT GLUCOSE (AUTOMATED) 2020-11-04 David Howell sity of 22:58:00 J [facility] POCT GLUCOSE (AUTOMATED) 2020-11-04 David Howell Univer sity of 22:58:00 J [facility] XR KUB 2020-11-04 [facility] of 21:35:45 [facility] XR KUB 2020-11-04 [facility] of 21:35:45 [facility] POCT GLUCOSE (AUTOMATED) 2020-11-04 David Howeller sity of 16:51:00 J [facility] POCT GLUCOSE (AUTOMATED) 2020-11-04 David Howell sity of 16:51:00 J [facility] PROTHROMBIN TIME / INR 2020-11-04 [facility] y of 15:55:00 [facility] PROTHROMBIN TIME / INR 2020-11-04 [facility] y of 15:55:00 [facility] POCT GLUCOSE (AUTOMATED) 2020-11-04 David Howell Univloi sity of 15:21:00 J [facility] POCT GLUCOSE (AUTOMATED) 2020-11-04 David Howell sity of 15:21:00 J [facility] CBC WITHOUT DIFF 2020-11-04 [facility] of 10:04:00 [facility] BASIC METABOLIC PANEL (NA, K, CL, 2020-11-04 [facility] of CO2, GLUCOSE, BUN, CREATININE, CA) 10:04:00 [facility] MAGNESIUM 2020-11-04 [facility] of 10:04:00 [facility] MAGNESIUM 2020-11-04 [facility] of 10:04:00 [facility] BASIC METABOLIC PANEL (NA, K, CL, 2020-11-04 [facility] of CO2, GLUCOSE, BUN, CREATININE, CA) 10:04:00 [facility] CBC WITHOUT DIFF 2020-11-04 [facility] of 10:04:00 [facility] POCT GLUCOSE (AUTOMATED) 2020-11-03 Antonio Villa Univers ity of 16:54:00 [facility] POCT GLUCOSE (AUTOMATED) 2020-11-03 Antonio Villa Univers ity of 16:54:00 [facility] BASIC METABOLIC PANEL (NA, K, CL, 2020-11-03 Ele Cao [place] of CO2, GLUCOSE, BUN, CREATININE, CA) 12:53:00 [facility] MAGNESIUM 2020-11-03 Ele Cao [place] of 12:53:00 [facility] MAGNESIUM 2020-11-03 Kiley [facility] of 12:53:00 [facility] BASIC METABOLIC PANEL (NA, K, CL, 2020-11-03 Ele Cao [place] of CO2, GLUCOSE, BUN, CREATININE, CA) 12:53:00 [facility] POCT GLUCOSE (AUTOMATED) 2020-11-03 Antnoio Villa Univers ity of 12:47:00 [facility] POCT GLUCOSE (AUTOMATED) 2020-11-03 Antonio Villa Univers ity of 12:47:00 [facility] THYROID PEROXIDASE (TPO) AB 2020-11-03 Ele Cao versity of 10:10:00 [facility] CBC WITH DIFF 2020-11-03 Ele [facility]o of 10:10:00 [facility] CBC WITH DIFF 2020-11-03 Ele [facility]o of 10:10:00 [facility] THYROID PEROXIDASE (TPO) AB 2020-11-03 Ele Cao versity of 10:10:00 [facility] POCT GLUCOSE (AUTOMATED) 2020-11-03 Antonio Villa Univers ity of 10:09:00 [facility] POCT GLUCOSE (AUTOMATED) 2020-11-03 Antonio Villa [facility] ity of 10:09:00 [facility] POCT GLUCOSE (AUTOMATED) 2020-11-03 Antonio Villa [facility] of 04:38:00 [facility] POCT GLUCOSE (AUTOMATED) 2020-11-03 Antonio Villa [facility] of 04:38:00 [facility] BASIC METABOLIC PANEL (NA, K, CL, 2020-11-03 Ele Cao Pattison of CO2, GLUCOSE, BUN, CREATININE, CA) 02:22:00 [facility] MAGNESIUM 2020-11-03 [facility] of 02:22:00 [facility] MAGNESIUM 2020-11-03 Ele Cao [place] of 02:22:00 [facility] BASIC METABOLIC PANEL (NA, K, CL, 2020-11-03 Ele Cao [place] of CO2, GLUCOSE, BUN, CREATININE, CA) 02:22:00 [facility] XR KUB 2020-11-02 Ele Cao [place] of 22:56:53 [facility] XR KUB 2020-11-02 Kiley [facility] of 22:56:53 [facility] VITAMIN B6, PLASMA 2020-11-02 [facility] of 22:49:00 [facility] VITAMIN B6, PLASMA 2020-11-02 [facility] of 22:49:00 [facility] POCT GLUCOSE (AUTOMATED) 2020-11-02 Antonio Villa [facility] of 22:20:00 [facility] POCT GLUCOSE (AUTOMATED) 2020-11-02 Antonio Villa [facility] of 22:20:00 [facility] MENINGITIS/ENCEPHALITIS PANEL BY 2020-11-02 Ele Cao of PCR 20:45:00 [facility] CSF/CLOCK MAKER SHUNT CULTURE 2020-11-02 Ele Cao [place]att[place] of 20:45:00 [facility] BODY FLUID MANUAL DIFF 2020-11-02 Ele Caoit y of 20:45:00 [facility] CEREBROSPINAL FLUID GLUCOSE 2020-11-02 Kiley [facility] ersity of 20:45:00 [facility] CEREBROSPINAL FLUID PROTEIN 2020-11-02 Kiley, [facility] ersity of 20:45:00 [facility] CSF CULTURE 2020-11-02 Kiley [facility] of 20:45:00 [facility] CEREBROSPINAL FLUID PROTEIN 2020-11-02 Kiley, [facility] ersity of 20:45:00 [facility] CEREBROSPINAL FLUID GLUCOSE 2020-11-02 Kiley, [facility] ersity of 20:45:00 [facility] BODY FLUID DIRECT COUNT 2020-11-02 K[facility] ty of 20:45:00 [facility] CSF/CLOCK MAKER SHUNT CULTURE 2020-11-02 Kiley, [facility] of 20:45:00 [facility] CSF CULTURE 2020-11-02 Kiley [facility] of 20:45:00 [facility] MENINGITIS/ENCEPHALITIS PANEL BY 2020-11-02 Kiley [facility] of PCR 20:45:00 [facility] BASIC METABOLIC PANEL (NA, K, CL, 2020-11-02 Kiley [facility] of CO2, GLUCOSE, BUN, CREATININE, CA) 17:39:00 [facility] MAGNESIUM 2020-11-02 Kiley [facility] of 17:39:00 [facility] MAGNESIUM 2020-11-02 Kiley [facility] of 17:39:00 [facility] BASIC METABOLIC PANEL (NA, K, CL, 2020-11-02 Kiley [facility] of CO2, GLUCOSE, BUN, CREATININE, CA) 17:39:00 [facility] POCT GLUCOSE (AUTOMATED) 2020-11-02 Antonio Villa P [facility] ity of 16:28:00 [facility] POCT GLUCOSE (AUTOMATED) 2020-11-02 Antonio iVlla P [facility] ity of 16:28:00 [facility] POCT GLUCOSE (AUTOMATED) 2020-11-02 Antonio Villa P [facility] it[facility] of 12:37:00 [facility] POCT GLUCOSE (AUTOMATED) 2020-11-02 Antonio Villa [facility] of 12:37:00 [facility] CBC WITH DIFF 2020-11-02 Ele Cao [place] of 09:56:00 [facility] BASIC METABOLIC PANEL (NA, K, CL, 2020-11-02 [facility] CO2, GLUCOSE, BUN, CREATININE, CA) 09:56:00 [facility] VITAMIN B1 (THIAMINE), WHOLE BLOOD 2020-11-02 [facility] of 09:56:00 [facility] MAGNESIUM 2020-11-02 [facility] 09:56:00 [facility] MAGNESIUM 2020-11-02 [facility] 09:56:00 [facility] BASIC METABOLIC PANEL (NA, K, CL, 2020-11-02 [facility] of CO2, GLUCOSE, BUN, CREATININE, CA) 09:56:00 [facility] CBC WITH DIFF 2020-11-02 [facility] of 09:56:00 [facility] VITAMIN B1 (THIAMINE), WHOLE BLOOD 2020-11-02 [facility] of 09:56:00 [facility] POCT GLUCOSE (AUTOMATED) 2020-11-02 Antonio Villa P [facility] of 03:57:00 [facility] POCT GLUCOSE (AUTOMATED) 2020-11-02 Antonio Villa P [facility] of 03:57:00 [facility] POCT GLUCOSE (AUTOMATED) 2020-11-02 Antonio Villa [facility] of 00:42:00 [facility] POCT GLUCOSE (AUTOMATED) 2020-11-02 Antonio Villa P [facility] of 00:42:00 [facility] ELECTROENCEPHALOGRAM 2020-11-02 [facility] of 00:00:00 [facility] ELECTROENCEPHALOGRAM 2020-11-02 [facility] of 00:00:00 [facility] POCT GLUCOSE (AUTOMATED) 2020-11-01 Antonio Villa P [facility] of 21:46:00 [facility] POCT GLUCOSE (AUTOMATED) 2020-11-01 Antonio Villa P [facility] of 21:46:00 [facility] POCT GLUCOSE (AUTOMATED) 2020-11-01 Antonio Villa P [facility] of 20:44:00 [facility] POCT GLUCOSE (AUTOMATED) 2020-11-01 Antonio Villa P [facility] of 20:44:00 [facility] POCT GLUCOSE (AUTOMATED) 2020-11-01 Antonio Villa [facility] of 17:03:00 [facility] POCT GLUCOSE (AUTOMATED) 2020-11-01 Antonio Villa [facility] of 17:03:00 [facility] BASIC METABOLIC PANEL (NA, K, CL, 2020-11-01 Ele Cao Pattison of CO2, GLUCOSE, BUN, CREATININE, CA) 17:01:00 [facility] PROCALCITONIN 2020-11-01 Kiley [facility] of 17:01:00 [facility] THYROID STIMULATING HORMONE 2020-11-01 [facility] ersity of 17:01:00 [facility] FOLATE 2020-11-01 [facility] of 17:01:00 [facility] VITAMIN B12, LEVEL 2020-11-01 [facility] of 17:01:00 [facility] VITAMIN B12, LEVEL 2020-11-01 [facility] of 17:01:00 [facility] FOLATE 2020-11-01 [facility] of 17:01:00 [facility] THYROID STIMULATING HORMONE 2020-11-01 [facility] ersity of 17:01:00 [facility] BASIC METABOLIC PANEL (NA, K, CL, 2020-11-01 Ele Cao Pattison of CO2, GLUCOSE, BUN, CREATININE, CA) 17:01:00 [facility] PROCALCITONIN 2020-11-01 Ele Cao Pattison of 17:01:00 [facility] POCT GLUCOSE (AUTOMATED) 2020-11-01 Antonio Villa [facility] of 12:51:00 [facility] POCT GLUCOSE (AUTOMATED) 2020-11-01 Antonio Villa [facility] of 12:51:00 [facility] CBC WITH DIFF 2020-11-01 Kiley [facility] of 10:21:00 [facility] BASIC METABOLIC PANEL (NA, K, CL, 2020-11-01 Kiley [facility] of CO2, GLUCOSE, BUN, CREATININE, CA) 10:21:00 [facility] POCT GLUCOSE (AUTOMATED) 2020-11-01 Antonio Villa [facility] of 10:21:00 [facility] BASIC METABOLIC PANEL (NA, K, CL, 2020-11-01 Ele Cao Pattison of CO2, GLUCOSE, BUN, CREATININE, CA) 10:21:00 [facility] CBC WITH DIFF 2020-11-01 [facility] 10:21[facility]00 [facility] POCT GLUCOSE (AUTOMATED) 2020-11-01 Antonio Villa [facility] of 10:21:00 [facility] POCT GLUCOSE (AUTOMATED) 2020-11-01 Antonio Villa [facility] of 08:03:00 [facility] POCT GLUCOSE (AUTOMATED) 2020-11-01 Antonio Villa [facility] of 08:03:00 [facility] BASIC METABOLIC PANEL (NA, K, CL, 2020-11-01 [facility] of CO2, GLUCOSE, BUN, CREATININE, CA) 05:06:00 [facility] POCT GLUCOSE (AUTOMATED) 2020-11-01 Antonio Villa [facility] of 05:06:00 [facility] BASIC METABOLIC PANEL (NA, K, CL, 2020-11-01 [facility] of CO2, GLUCOSE, BUN, CREATININE, CA) 05:06:00 [facility] POCT GLUCOSE (AUTOMATED) 2020-11-01 Antonio Villa [facility] of 05:06:00 [facility] POCT GLUCOSE (AUTOMATED) 2020-11-01 Antonio Villa [facility] of 02:17:00 [facility] POCT GLUCOSE (AUTOMATED) 2020-11-01 Antonio Villa [facility] of 02:17:00 [facility] MR STROKE BRAIN WO CONTRAST 2020-11-01 Kiley [facility] ersity of 01:18:51 [facility] MR STROKE BRAIN WO CONTRAST 2020-11-01 Kiley [facility] ersity of 01:18:51 [facility] POCT GLUCOSE (AUTOMATED) 2020-10-31 Antonio Villa [facility] of 23:26:00 [facility] POCT GLUCOSE (AUTOMATED) 2020-10-31 Antonio Villa [facility] of 23:26:00 [facility] POCT GLUCOSE (AUTOMATED) 2020-10-31 Antonio Villa [facility] of 16:40:00 [facility] POCT GLUCOSE (AUTOMATED) 2020-10-31 Antonio Villa [facility] of 16:40:00 [facility] POCT GLUCOSE (AUTOMATED) 2020-10-31 Antonio Villa [facility] of 12:41:00 [facility] POCT GLUCOSE (AUTOMATED) 2020-10-31 Antonio Villa [facility] of 12:41:00 [facility] CBC WITHOUT DIFF 2020-10-31 [facility] of 11:13:00 [facility] CBC WITHOUT DIFF 2020-10-31 [facility] of 11:13:00 [facility] PREPARE PACKED RBC 2020-10-31 [facility] of 06:44:13 [facility] PREPARE PACKED RBC 2020-10-31 [facility] of 06:44:13 [facility] HB ABO GROUPING 2020-10-31 [facility], [facility] of 05:48:00 [facility] HB ABO GROUPING 2020-10-31 [facility], [facility] of 05:48:00 [facility] POCT GLUCOSE (AUTOMATED) 2020-10-31 Antonio Villa [facility] of 05:16:00 [facility] POCT GLUCOSE (AUTOMATED) 2020-10-31 Antonio Villa [facility] of 05:16:00 [facility] BASIC METABOLIC PANEL (NA, K, CL, 2020-10-31 Ele Cao Pattison of CO2, GLUCOSE, BUN, CREATININE, CA) 04:05:00 [facility] CBC WITH DIFF 2020-10-31 Ele Cao of 04:05:00 [facility] ACTIVATED PARTIAL THRMPLAS CARLTON 2020-10-31 [facility] 04:05:00 [facility] MAGNESIUM 2020-10-31 [facility], [facility] of 04:05:00 [facility] MAGNESIUM 2020-10-31 [facility], [facility] of 04:05:00 [facility] BASIC METABOLIC PANEL (NA, K, CL, 2020-10-31 Ele Cao Pattison of CO2, GLUCOSE, BUN, CREATININE, CA) 04:05:00 [facility] CBC WITH DIFF 2020-10-31 Kiley Ele Pattison of 04:05:00 [facility] ACTIVATED PARTIAL THRMPLAS CARLTON 2020-10-31 Bowen Russo U niversity of 04:05:00 [facility] HB ECG ROUTINE & RHYTHM STRIP 2020-10-31 [place] [facility]ity of 03:58:40 [facility] HB ECG ROUTINE & RHYTHM STRIP 2020-10-31 [place] [facility] of 03:58:40 [facility] POCT GLUCOSE (AUTOMATED) 2020-10-31 Antonio Villa [facility] of 01:27:00 [facility] POCT GLUCOSE (AUTOMATED) 2020-10-31 Antonio Villa [facility] of 01:27:00 [facility] XR CHEST 1 VW 2020-10-31 [facility] of 01:06:00 [facility] XR CHEST 1 VW 2020-10-31 [facility] of 01:06:00 [facility] POCT GLUCOSE (AUTOMATED) 2020-10-30 Antonio Villa [facility] of 22:08:00 [facility] POCT GLUCOSE (AUTOMATED) 2020-10-30 Antonio Villa [facility] of 22:08:00 [facility] POCT GLUCOSE (AUTOMATED) 2020-10-30 Antonio Villa [facility] of 19:43:00 [facility] POCT GLUCOSE (AUTOMATED) 2020-10-30 Antonio Villa [facility] of 19:43:00 [facility] ACTIVATED PARTIAL THRMPLAS CARLTON 2020-10-30 Bowen Russo U niversity of 17:13:00 [facility] ACTIVATED PARTIAL THRMPLAS CARLTON 2020-10-30 Bowen Russo U niversity of 17:13:00 [facility] POCT GLUCOSE (AUTOMATED) 2020-10-30 Antonio Villa [facility] of 17:05:00 [facility] POCT GLUCOSE (AUTOMATED) 2020-10-30 Antonio Villa [facility] of 17:05:00 [facility] CBC WITHOUT DIFF 2020-10-30 [facility] of 13:57:00 [facility] BASIC METABOLIC PANEL (NA, K, CL, 2020-10-30 Ele Cao Pattison of CO2, GLUCOSE, BUN, CREATININE, CA) 13:57:00 [facility] MAGNESIUM 2020-10-30 Ele Cao Pattison of 13:57:00 [facility] MAGNESIUM 2020-10-30 Ele Cao Pattison of 13:57:00 [facility] BASIC METABOLIC PANEL (NA, K, CL, 2020-10-30 Ele Cao of CO2, GLUCOSE, BUN, CREATININE, CA) 13:57:00 [facility] CBC WITHOUT DIFF 2020-10-30 Dianne Kiser of 13:57:00 [facility] POCT GLUCOSE (AUTOMATED) 2020-10-30 Antonio Villa [facility] of 12:40:00 [facility] POCT GLUCOSE (AUTOMATED) 2020-10-30 Antonio Villa P [facility] it[facility] of 12:40:00 [facility] POCT GLUCOSE (AUTOMATED) 2020-10-30 Antonio Villa [facility] of 09:33:00 [facility] POCT GLUCOSE (AUTOMATED) 2020-10-30 Antonio Villa [facility] of 09:33:00 [facility] POCT GLUCOSE (AUTOMATED) 2020-10-30 Antonio Villa [facility] of 06:23:00 [facility] POCT GLUCOSE (AUTOMATED) 2020-10-30 Antonio Villa [facility] of 06:23:00 [facility] BASIC METABOLIC PANEL (NA, K, CL, 2020-10-30 Ele Cao of CO2, GLUCOSE, BUN, CREATININE, CA) 05:24:00 [facility] ACTIVATED PARTIAL THRMPLAS CARLTON 2020-10-30 Bowen Russo of 05:24:00 [facility] CBC WITH DIFF 2020-10-30 Ele Cao of 05:24:00 [facility] MAGNESIUM 2020-10-30 Dianne Kiser of 05:24:00 [facility] MAGNESIUM 2020-10-30 Dianne Kiser of 05:24:00 [facility] BASIC METABOLIC PANEL (NA, K, CL, 2020-10-30 lEe Cao of CO2, GLUCOSE, BUN, CREATININE, CA) 05:24:00 [facility] CBC WITH DIFF 2020-10-30 Kiley, Ele University of 05:24:00 [facility] ACTIVATED PARTIAL THRMPLAS CARLTNO 2020-10-30 Bowen Russo U niversity of 05:24:00 [facility] POCT GLUCOSE (AUTOMATED) 2020-10-30 Antonio Villa [facility] of 03:24:00 [facility] POCT GLUCOSE (AUTOMATED) 2020-10-30 Antonio Villa [facility] of 03:24:00 [facility] POCT GLUCOSE (AUTOMATED) 2020-10-30 Antonio Villa [facility] of 00:45:00 [facility] POCT GLUCOSE (AUTOMATED) 2020-10-30 Antonio Villa [facility] of 00:45:00 [facility] POCT GLUCOSE (AUTOMATED) 2020-10-29 Antonio Villa [facility] of 22:25:00 [facility] POCT GLUCOSE (AUTOMATED) 2020-10-29 Antonio Villa [facility] of 22:25:00 [facility] ACTIVATED PARTIAL THRMPLAS CARLTON 2020-10-29 Bowen Russo U niversity of 20:52:00 [facility] ACTIVATED PARTIAL THRMPLAS CARLTON 2020-10-29 Bowen Russo U niversity of 20:52:00 [facility] BASIC METABOLIC PANEL (NA, K, CL, 2020-10-29 [facility] CO2, GLUCOSE, BUN, CREATININE, CA) 20:08:00 [facility] MAGNESIUM 2020-10-29 Kiley [facility] of 20:08:00 [facility] MAGNESIUM 2020-10-29 Kiley [facility] of 20:08:00 [facility] BASIC METABOLIC PANEL (NA, K, CL, 2020-10-29 Kiley [facility] of CO2, GLUCOSE, BUN, CREATININE, CA) 20:08:00 [facility] POCT GLUCOSE (AUTOMATED) 2020-10-29 Espinosa, Univers ity of 19:12:00 Prabhjot Melara [facility] POCT GLUCOSE (AUTOMATED) 2020-10-29 Espinosa, Univers ity of 19:12:00 Prabhjot Melara [facility] POCT GLUCOSE (AUTOMATED) 2020-10-29 [place]a Univers ity of 16:27:00 Prabhjot Melara [facility] POCT GLUCOSE (AUTOMATED) 2020-10-29 [facility] ity of 16:27:00 [facility] TROPONIN I 2020-10-29 [facility] 15:15:00 [facility] BASIC METABOLIC PANEL (NA, K, CL, 2020-10-29 Kiley [facility] of CO2, GLUCOSE, BUN, CREATININE, CA) 15:15:00 [facility] ACTIVATED PARTIAL THRMPLAS CARLTON 2020-10-29 Bowen Russo niversity of 15:15:00 [facility] TROPONIN I 2020-10-29 [facility] 15:15:00 [facility] BASIC METABOLIC PANEL (NA, K, CL, 2020-10-29 [facility] CO2, GLUCOSE, BUN, CREATININE, CA) 15:15:00 [facility] ACTIVATED PARTIAL THRMPLAS CARLTON 2020-10-29 Bowen Russo niversity of 15:15:00 [facility] POCT GLUCOSE (AUTOMATED) 2020-10-29 [facility] ity of 12:54:00 [facility] POCT GLUCOSE (AUTOMATED) 2020-10-29 [facility] ity of 12:54:00 [facility] XR BONE SURVEY 2020-10-29 [facility] of 09:39:57 [facility] XR BONE SURVEY 2020-10-29 [facility] of 09:39:57 [facility] MRSA / MSSA SCREEN BY PCRBRITNEY 2020-10-29 Rafael[facility] of 08:01:00 [facility] MRSA / MSSA SCREEN BY PCRBRITNEY 2020-10-29 [facility] of 08:01:00 [facility] TROPONIN I 2020-10-29 Fernando [facility] 08:00:00 [facility] CBC WITH DIFF 2020-10-29 Kiley [facility] of 08:00:00 [facility] BASIC METABOLIC PANEL (NA, K, CL, 2020-10-29 Kiley [facility] of CO2, GLUCOSE, BUN, CREATININE, CA) 08:00:00 [facility] TROPONIN I 2020-10-29 [facility] 08:00:00 [facility] BASIC METABOLIC PANEL (NA, K, CL, 2020-10-29 Ele Cao Pattison of CO2, GLUCOSE, BUN, CREATININE, CA) 08:00:00 [facility] CBC WITH DIFF 2020-10-29 Ele Cao P[place] of 08:00:00 [facility] POCT GLUCOSE (AUTOMATED) 2020-10-29 [facility] ity of 07:09:00 [facility] POCT GLUCOSE (AUTOMATED) 2020-10-29 [facility] ity of 07:09:00 [facility] POCT GLUCOSE (AUTOMATED) 2020-10-29 [facility], [facility] ity of 03:58:00 [facility] POCT GLUCOSE (AUTOMATED) 2020-10-29 [facility] ity of 03:58:00 [facility]IN [facility] 2020[facility]10-[facility] 03:[facility] CBC WITH DIFF 2020-10-29 [facility] of 03:18:00 [facility] BASIC METABOLIC PANEL (NA, K, CL, 2020-10-29 [facility] of CO2, GLUCOSE, BUN, CREATININE, CA) 03:18:00 [facility] MAGNESIUM 2020-10-29 [facility] of 03:18:00 [facility] MAGNESIUM 2020-10-29 [facility] of 03:18:00 [facility] TROPONIN I 2020-10-29 [facility] 03:18:00 [facility] BASIC METABOLIC PANEL (NA, K, CL, 2020-10-29 [facility], [facility] of CO2, GLUCOSE, BUN, CREATININE, CA) 03:18:00 [facility] CBC WITH DIFF 2020-10-29 [facility], [facility] of 03:18:00 [facility] PROTHROMBIN TIME / INR 2020-10-29 [facility], [facility] y of 03:17:00 [facility] FIBRINOGEN 2020-10-29 [facility], [facility] of 03:17:00 [facility] PROTHROMBIN TIME / INR 2020-10-29 [facility] y of 03:17:00 [facility] FIBRINOGEN 2020-10-29 [facility] of 03:17:00 [facility] AC PANEL 20 + LACTIC ACID 2020-10-29 [facility] sity of 03:09:00 [facility] AC PANEL 20 + LACTIC ACID 2020-10-29 [facility] sity of 03:09:[address] [facility] [address] HEAD WO CONTRAST 2020-10-29 [facility] o f 02:45:[address] [facility] [address] HEAD WO CONTRAST 2020-10-29 [facility] o f 02:45:23 [facility] POCT GLUCOSE (AUTOMATED) 2020-10-29 [facility], [facility] ity of 01:09:00 [facility] POCT GLUCOSE (AUTOMATED) 2020-10-29 [facility], [facility] ity of 01:09:00 [facility] POCT GLUCOSE (AUTOMATED) 2020-10-28 [facility], [facility] ity of 21:42:00 [facility] POCT GLUCOSE (AUTOMATED) 2020-10-28 [facility] ity of 21:42:00 [facility] TRANSTHORACIC ECHO (TTE) COMPLETE 2020-10-28 [facility]/ CONTRAST 20:20:00 [facility] TRANSTHORACIC ECHO (TTE) COMPLETE 2020-10-28 [facility]/ CONTRAST 20:20:00 [facility] POCT GLUCOSE (AUTOMATED) 2020-10-28 [facility] ity of 16:35:00 [facility] POCT GLUCOSE (AUTOMATED) 2020-10-28 [facility] ity of 16:35:00 [facility] XR CHEST 1 VW 2020-10-28 [facility] 15:19:34 [facility] XR CHEST 1 VW 2020-10-28 [facility] 15:19:34 [facility] HB ECG ROUTINE & RHYTHM STRIP 2020-10-28 Leonel, Un iversity of 14:00:32 [facility] HB ECG ROUTINE & RHYTHM STRIP 2020-10-28 Leonel, Un iversity of 14:00:32 [facility] AC PANEL 20 + LACTIC ACID 2020-10-28 Leonel, Univer sity of 13:52:00 [facility] AC PANEL 20 + LACTIC ACID 2020-10-28 Leonel, Univer sity of 13:52:00 [facility] POCT GLUCOSE (AUTOMATED) 2020-10-28 Antonio Villa [facility] ity of 13:44:00 [facility] POCT GLUCOSE (AUTOMATED) 2020-10-28 Antonio Villa [facility] ity of 13:44:00 [facility] POCT GLUCOSE (AUTOMATED) 2020-10-28 Antonio Villa [facility] ity of 13:15:00 [facility] POCT GLUCOSE (AUTOMATED) 2020-10-28 Antonio Villa [facility] ity of 13:15:00 [facility] POCT GLUCOSE (AUTOMATED) 2020-10-28 Antonio Villa [facility] ity of 10:41:00 [facility] POCT GLUCOSE (AUTOMATED) 2020-10-28 Antonio Villa [facility] ity of 10:41:00 [facility] 2020[facility]10-[facility] of 07:48:00 [facility] URINE CULTURE 2020-10-28 [facility] of 07:48:00 [facility] TROPONIN I 2020-10-28 [facility] of 07:45:00 [facility] CBC WITHOUT DIFF 2020-10-28 [facility] of 07:45:00 [facility] BASIC METABOLIC PANEL (NA, K, CL, 2020-10-28 [facility] of CO2, GLUCOSE, BUN, CREATININE, CA) 07:45:00 [facility] TROPONIN I 2020-10-28 [facility] of 07:45:00 [facility] BASIC METABOLIC PANEL (NA, K, CL, 2020-10-28 [facility] of CO2, GLUCOSE, BUN, CREATININE, CA) 07:45:00 [facility] CBC WITHOUT DIFF 2020-10-28 [facility] of 07:45:00 [facility] POCT GLUCOSE (AUTOMATED) 2020-10-28 Antonio Villa [facility] it[facility] of 07:37:00 [facility] POCT GLUCOSE (AUTOMATED) 2020-10-28 Antonio Villa [facility] of 07:37:00 [facility] POCT GLUCOSE (AUTOMATED) 2020-10-28 Antonio Villa [facility] of 04:15:00 [facility] POCT GLUCOSE (AUTOMATED) 2020-10-28 Antonio Villa [facility] of 04:15:00 [facility] POCT GLUCOSE (AUTOMATED) 2020-10-28 Antonio Villa [facility] of 01:28:00 [facility] POCT GLUCOSE (AUTOMATED) 2020-10-28 Antonio Villa [facility] of 01:28:00 [facility] BLOOD CULTURE SCREEN 2020-10-27 [facility] of 23:28:00 [facility] BLOOD CULTURE SCREEN 2020-10-27 [facility] of 23:28:00 [facility] BASIC METABOLIC PANEL (NA, K, CL, 2020-10-27 [facility] of CO2, GLUCOSE, BUN, CREATININE, CA) 21:40:00 [facility] TROPONIN I 2020-10-27 [facility] of 21:40:00 [facility] EXTRA TUBE LAV 2020-10-27 [facility] 21:40:00 [facility] TROPONIN I 2020-10-27 [facility] of 21:40:00 [facility] BASIC METABOLIC PANEL (NA, K, CL, 2020-10-27 [facility] of CO2, GLUCOSE, BUN, CREATININE, CA) 21:40:00 [facility] EXTRA TUBE LAV 2020-10-27 [facility]:40[facility]AUTOMATED) 2020-10-27 Vonda Starks ity of 21:28:00 [facility] POCT GLUCOSE (AUTOMATED) 2020-10-27 Vonda Starks ity of 21:28:00 [facility] POCT GLUCOSE (AUTOMATED) 2020-10-27 Vonda Starks [facility] of 19:12:00 [facility] POCT GLUCOSE (AUTOMATED) 2020-10-27 Vonda Starks [facility] of 19:12:00 [facility] POCT GLUCOSE (AUTOMATED) 2020-10-27 Vonda Starks [facility] it[facility] of 16:09:00 [facility] POCT GLUCOSE (AUTOMATED) 2020-10-27 Vonda Starks [facility] ity of 16:09:00 [facility] CBC WITH DIFF 2020-10-27 Jax Austin Pattison of 13:09:00 [facility] CBC WITH DIFF 2020-10-27 Norman, Jax [facility] of 13:09:00 [facility] POCT GLUCOSE (AUTOMATED) 2020-10-27 Vonda Starks ity of 12:57:00 [facility] POCT GLUCOSE (AUTOMATED) 2020-10-27 Vonda Starks [facility] of 12:57:00 [facility] BASIC METABOLIC PANEL (NA, K, CL, 2020-10-27 Norman Jax Pattison of CO2, GLUCOSE, BUN, CREATININE, CA) 10:57:00 [facility] TROPONIN I 2020-10-27 [facility] of 10:57:00 [facility] TROPONIN I 2020-10-27 [facility] of 10:57:00 [facility] BASIC METABOLIC PANEL (NA, K, CL, 2020-10-27 Norman Jax Pattison of CO2, GLUCOSE, BUN, CREATININE, CA) 10:57:00 [facility] BASIC METABOLIC PANEL (NA, K, CL, 2020-10-27 Norman Jax Patt[facility] of CO2, GLUCOSE, BUN, CREATININE, CA) 05:09:00 [facility] TROPONIN I 2020-10-27 Norman Jax P[facility] of 05:09:00 [facility] TROPONIN I 2020-10-27 Norman Jax P[facility] of 05:09:00 [facility] BASIC METABOLIC PANEL (NA, K, CL, 2020-10-27 Norman Jax P[facility] of CO2, GLUCOSE, BUN, CREATININE, CA) 05:09:00 [facility] POCT GLUCOSE (AUTOMATED) 2020-10-27 Vonda Starks ity of 02:53:00 [facility] POCT GLUCOSE (AUTOMATED) 2020-10-27 Vonda Starks [facility] it[facility] of 02:53:00 [facility] BASIC METABOLIC PANEL (NA, K, CL, 2020-10-26 Norman Jax Pattison of CO2, GLUCOSE, BUN, CREATININE, CA) 22:44:00 [facility] BASIC METABOLIC PANEL (NA, K, CL, 2020-10-26 Norman Jax Pattison of CO2, GLUCOSE, BUN, CREATININE, CA) 22:44:00 [facility] POCT GLUCOSE (AUTOMATED) 2020-10-26 Vonda Starks [facility] of 21:39:00 [facility] POCT GLUCOSE (AUTOMATED) 2020-10-26 Vonda Starks [facility] it[facility] of 21:39:00 [facility] XR ABDOMEN 1 VW 2020-10-26 Norman [facility] of 20:25:00 [facility] XR ABDOMEN 1 VW 2020-10-26 [facility] of 20:25:00 [facility] POCT GLUCOSE (AUTOMATED) 2020-10-26 Vonda Starks [facility] of 16:55:00 [facility] POCT GLUCOSE (AUTOMATED) 2020-10-26 Stanton Starkszad [facility] ity of 16:55:00 [facility] POCT GLUCOSE (AUTOMATED) 2020-10-26 Jairo Starksd [facility] ity of 12:57:00 [facility] POCT GLUCOSE (AUTOMATED) 2020-10-26 Jairo Starksd [facility] it[facility] of 12:57:00 [facility] BASIC METABOLIC PANEL (NA, K, CL, 2020-10-26 [facility] of CO2, GLUCOSE, BUN, CREATININE, CA) 08:46:00 [facility] CBC WITH DIFF 2020-10-26 Mars [facility] of 08:46:00 [facility] MAGNESIUM 2020-10-26 Margi [facility] of 08:46:00 [facility] TROPONIN I 2020-10-26 [facility] of 08:46:00 [facility] MAGNESIUM 2020-10-26 Mars [facility] of 08:46:00 [facility] TROPONIN I 2020-10-26 [facility] of 08:46:00 [facility] BASIC METABOLIC PANEL (NA, K, CL, 2020-10-26 [facility] of CO2, GLUCOSE, BUN, CREATININE, CA) 08:46:00 [facility] CBC WITH DIFF 2020-10-26 Margi [facility] of 08:46:00 [facility] TROPONIN I 2020-10-26 Katina [facility] of 02:23:00 [facility] TROPONIN I 2020-10-26 Katina [facility] of 02:23:00 [facility] POCT GLUCOSE (AUTOMATED) 2020-10-26 Vonda Starks [facility] of 02:22:00 [facility] POCT GLUCOSE (AUTOMATED) 2020-10-26 Vonda Starks [facility] of 02:22:00 [facility] POCT GLUCOSE (AUTOMATED) 2020-10-25 Vonda Starks [facility] ity of 23:35:00 [facility] POCT GLUCOSE (AUTOMATED) 2020-10-25 Vonda Starks [facility] ity of 23:35:00 [facility] BASIC METABOLIC PANEL (NA, K, CL, 2020-10-25 [facility] of CO2, GLUCOSE, BUN, CREATININE, CA) 19:50:00 [facility] MAGNESIUM 2020-10-25 [facility] of 19:50:00 [facility] TROPONIN I 2020-10-25 [facility] of 19:50:00 [facility] MAGNESIUM 2020-10-25 [facility] of 19:50:00 [facility] TROPONIN I 2020-10-25 [facility] of 19:50:00 [facility] BASIC METABOLIC PANEL (NA, K, CL, 2020-10-25 [facility] of CO2, GLUCOSE, BUN, CREATININE, CA) 19:50:00 [facility] AC PANEL 20 + LACTIC ACID 2020-10-25 Margi [facility] sity of 19:49:00 [facility] AC PANEL 20 + LACTIC ACID 2020-10-25 Mars [facility] sity of 19:49:00 [facility] HB ECG ROUTINE & RHYTHM STRIP 2020-10-25 Margi Dianne iversity of 19:35:45 [facility] HB ECG ROUTINE & RHYTHM STRIP 2020-10-25 Dianne Kiser Suleman iversity of 19:35:45 [facility] AC PANEL 20 + LACTIC ACID 2020-10-25 Rafaela, [facility] of 18:22:00 [facility] AC PANEL 20 + LACTIC ACID 2020-10-25 Rafaela, [facility] of 18:22:00 [facility] POCT GLUCOSE (AUTOMATED) 2020-10-25 Vonda Starks [facility] of 17:15:00 [facility] POCT GLUCOSE (AUTOMATED) 2020-10-25 Vonda Starks [facility] it[facility] of 17:15:00 [facility] AC PANEL 20 + LACTIC ACID 2020-10-25 Rafaela, [facility] of 15:21:00 [facility] AC PANEL 20 + LACTIC ACID 2020-10-25 Rafaela, [facility]ity of 15:21:00 [facility] POCT GLUCOSE (AUTOMATED) 2020-10-25 Vonda Starks [facility] of 12:42:00 [facility] POCT GLUCOSE (AUTOMATED) 2020-10-25 Vonda Starks [facility] of 12:42:00 [facility] CBC WITH DIFF 2020-10-25 Jax Austin Patt[facility] of 08:27:00 [facility] BASIC METABOLIC PANEL (NA, K, CL, 2020-10-25 Jax Austin [facility] of CO2, GLUCOSE, BUN, CREATININE, CA) 08:27:00 [facility] MAGNESIUM 2020-10-25 Jax Austin [facility] of 08:27:00 [facility] MAGNESIUM 2020-10-25 Jax Austin [facility] of 08:27:00 [facility] BASIC METABOLIC PANEL (NA, K, CL, 2020-10-25 Jax Austin of CO2, GLUCOSE, BUN, CREATININE, CA) 08:27:00 [facility] CBC WITH DIFF 2020-10-25 Jax Austin [facility] of 08:27:00 [facility] POCT GLUCOSE (AUTOMATED) 2020-10-25 Vonda Starks [facility] of 01:28:00 [facility] POCT GLUCOSE (AUTOMATED) 2020-10-25 Vonda Starks [facility] of 01:28:00 [facility] POCT GLUCOSE (AUTOMATED) 2020-10-24 Vonda Starks [facility] of 21:35:00 [facility] POCT GLUCOSE (AUTOMATED) 2020-10-24 Vonda Starks [facility] it[facility] of 21:35:[address] [facility] [address] HEAD WO CONTRAST 2020-10-24 Jax Austin o f 19:12:43 [facility] CT HEAD WO CONTRAST 2020-10-24 Killian Austinin Vito o f 19:12:43 [facility] POCT GLUCOSE (AUTOMATED) 2020-10-24 Vonda Starks [facility] it[facility] of 16:51:00 [facility] POCT GLUCOSE (AUTOMATED) 2020-10-24 Vonda Starks [facility] it[facility] of 16:51:[address] [facility] [address] THORAX W CONTRAST 2020-10-24 Jax Austin Pattison of 14:08:[address] [facility] [address] THORAX W CONTRAST 2020-10-24 Jax Austin [facility] of 14:08:[address] [facility] [address] ABDOMEN PELVIS W CONTRAST 2020-10-24 Jax Austin Uni versity of 14:06:[address] [facility] [address] ABDOMEN PELVIS W CONTRAST 2020-10-24 Jax Austin Uni versity of 14:06:06 [facility] POCT GLUCOSE (AUTOMATED) 2020-10-24 Vonda Starks [facility] it[facility] of 12:42:00 [facility] POCT GLUCOSE (AUTOMATED) 2020-10-24 Vonda Starks [facility] it[facility] of 12:42:00 [facility] MAGNESIUM 2020-10-24 kelechi [facility] of 09:41:00 [facility] BASIC METABOLIC PANEL (NA, K, CL, 2020-10-24 [facility] of CO2, GLUCOSE, BUN, CREATININE, CA) 09:41:00 [facility] CBC WITH DIFF 2020-10-24 [facility] of 09:41:00 [facility] MAGNESIUM 2020-10-24 [facility] of 09:41:00 [facility] BASIC METABOLIC PANEL (NA, K, CL, 2020-10-24 [facility] of CO2, GLUCOSE, BUN, CREATININE, CA) 09:41:00 [facility] CBC WITH DIFF 2020-10-24 Ikram, [facility] of 09:41:00 [facility] AUTHORIZATION FOR RELEASE OF PHI 2020-10-24 [facility] of 05:01:00 Unassigned, No [facility] AUTHORIZATION FOR RELEASE OF PHI 2020-10-24 [facility] of 05:01:00 Unassigned, No [facility] POCT GLUCOSE (AUTOMATED) 2020-10-24 oVnda Starks [facility] ity of 01:01:00 [facility] POCT GLUCOSE (AUTOMATED) 2020-10-24 Vonda Starks [facility] it[facility] of 01:01:00 [facility] POCT GLUCOSE (AUTOMATED) 2020-10-23 Vonda Starks [facility] of 23:29:00 [facility] POCT GLUCOSE (AUTOMATED) 2020-10-23 Vonda Starks [facility] of 23:29:00 [facility] POCT GLUCOSE (AUTOMATED) 2020-10-23 Vonda Starks [facility] of 18:06:00 [facility] POCT GLUCOSE (AUTOMATED) 2020-10-23 Vonda Starks [facility] it[facility] of 18:06:00 [facility] CBC WITH DIFF 2020-10-23 [facility] 13:08[facility]00 [facility] CBC WITH DIFF 2020-10-23 [facility] 13:08:00 [facility] POCT GLUCOSE (AUTOMATED) 2020-10-23 Vonda Starks [facility] of 13:06:00 [facility] POCT GLUCOSE (AUTOMATED) 2020-10-23 Vonda Starks [facility] of 13:06:00 [facility] PREPARE PACKED RBC 2020-10-23 Ele Cao Pattison of 10:02:05 [facility] PREPARE PACKED RBC 2020-10-23 Ele Cao Pattison of 10:02:05 [facility] CBC WITH DIFF 2020-10-23 Jax Austin P[facility] of 08:46:00 [facility] BASIC METABOLIC PANEL (NA, K, CL, 2020-10-23 Jax Austin [facility] of CO2, GLUCOSE, BUN, CREATININE, CA) 08:46:00 [facility] MAGNESIUM 2020-10-23 Ele Cao Pattison of 08:46:00 [facility] MAGNESIUM 2020-10-23 Ele Cao Pattison of 08:46:00 [facility] BASIC METABOLIC PANEL (NA, K, CL, 2020-10-23 Jax Austin of CO2, GLUCOSE, BUN, CREATININE, CA) 08:46:00 [facility] CBC WITH DIFF 2020-10-23 Jax Austin of 08:46:00 [facility] TROPONIN I 2020-10-22 Jax Austin of 22:48:00 [facility] CBC WITH DIFF 2020-10-22 Jax Austin of 22:48:00 [facility] TROPONIN I 2020-10-22 Jax Austin of 22:48:00 [facility] CBC WITH DIFF 2020-10-22 Jax Austin of 22:48:00 [facility] XR ABDOMEN 1 VW 2020-10-22 Jax Austin of 22:32:58 [facility] XR ABDOMEN 1 VW 2020-10-22 Jax Austin of 22:32:58 [facility] GLYCOSYLATED HEMOGLOBIN (A1C) 2020-10-22 Jax Austin iversity of 18:10:00 [facility] IRON PANEL 2020-10-22 Jax Austin of 18:10:00 [facility] IRON PANEL 2020-10-22 Jax Austin of 18:10:00 [facility] GLYCOSYLATED HEMOGLOBIN (A1C) 2020-10-22 Jax Austin iversity of 18:10:00 [facility] XR CHEST 1 VW 2020-10-22 Jax Austin of 17:58:02 [facility] XR CHEST 1 VW 2020-10-22 Jax Austin of 17:58:02 [facility] AC PANEL 20 + LACTIC ACID 2020-10-22 Jax Austin [facility] of 17:30:00 [facility] AC PANEL 20 + LACTIC ACID 2020-10-22 Jax Austin of 17:30:00 [facility] BLOOD CULTURE SCREEN 2020-10-22 Jax Austin of 17:17:00 [facility] BLOOD CULTURE SCREEN 2020-10-22 Jax Austin of 17:17:00 [facility] URINALYSIS 2020-10-22 Jax Austin of 16:59:00 [facility] URINE CULTURE 2020-10-22 Jax Austin of 16:59:00 [facility] BASIC METABOLIC PANEL (NA, K, CL, 2020-10-22 Jax Austin of CO2, GLUCOSE, BUN, CREATININE, CA) 16:59:00 [facility] CBC WITH DIFF 2020-10-22 Jax Austin of 16:59:00 [facility] FIBRINOGEN 2020-10-22 Jax Austin Pattison of 16:59:00 [facility] PROTHROMBIN TIME / INR 2020-10-22 Jax Austin [facility] y of 16:59:00 [facility] HEPATIC FUNCTION PANEL ([id number]) 2020-10-22 Jax Austin niversity of (ALB,T.PRO,BILI 16:59:00 [facility] T,BU/BC,ALT,AST,ALK PHOS) [place] FERRITIN SERUM 2020-10-22 Jax Austin of 16:59:00 [facility] TROPONIN I 2020-10-22 Jax Austin of 16:59:00 [facility] FERRITIN SERUM 2020-10-22 Jax Austin Pattison of 16:59:00 [facility] TROPONIN I 2020-10-22 Jax Austin Pattison of 16:59:00 [facility] HEPATIC FUNCTION PANEL ([id number]) 2020-10-22 Jax Austin niversity of (ALB,T.PRO,BILI 16:59:00 [facility] T,BU/BC,ALT,AST,ALK PHOS) [place] BASIC METABOLIC PANEL (NA, K, CL, 2020-10-22 Jax Austin of CO2, GLUCOSE, BUN, CREATININE, CA) 16:59:00 [facility] CBC WITH DIFF 2020-10-22 Jax Austin of 16:59:00 [facility] PROTHROMBIN TIME / INR 2020-10-22 Jax Austin [facility] y of 16:59:00 [facility] FIBRINOGEN 2020-10-22 Jax Austin Pattison of 16:59:00 [facility] URINALYSIS 2020-10-22 Jax Austin P[facility] of 16:59:00 [facility] URINE CULTURE 2020-10-22 Jax Austin P[facility]ison of 16:59:00 [facility] MRSA / MSSA SCREEN BY BRITNEY MTZ 2020-10-22 Jax Austin of 16:45:00 [facility] MRSA / MSSA SCREEN BY PCR, NARES 2020-10-22 Jax Austin Pattison of 16:45:00 [facility] HB ECG ROUTINE & RHYTHM STRIP 2020-10-22 Jax Austin Un iversity of 16:40:04 [facility] HB ECG ROUTINE & RHYTHM STRIP 2020-10-22 Jax Austin iversity of 16:40:04 [facility] HB ABO GROUPING 2020-10-22 Jax Austin Pattison of 16:30:00 [facility] HB ABO GROUPING 2020-10-22 Jax Austin Pattison of 16:30:00 [facility] HOSPITAL ADMISSION 2020-10-22 [facility] of 05:01:00 Unassigned, No [facility] HOSPITAL ADMISSION 2020-10-22 [facility] 05:01:00 Unassigned, No [facility] REFERRAL- REQUEST/RESPONSE 2020-07-04 [facility] rsity of 06:01:00 Unassigned, No [facility] TROPONIN I 2020-05-03 [facility] of 19:53:00 [facility] HEPATIC FUNCTION PANEL ([id number]) 2020-05-03 [facility] of (ALB,T.PRO,BILI 19:53:00 [facility],BU/BC,ALT,AST,ALK PHOS) [place] BASIC METABOLIC PANEL (NA, K, CL, 2020-05-03 [facility] of CO2, GLUCOSE, BUN, CREATININE, CA) 19:53:00 [facility] CBC WITH DIFF 2020-05-03 [facility] of 19:53:00 [facility] N-TERMINAL PRO-BNP 2020-05-03 [facility] o f 19:53:00 [facility] HB ABO GROUPING 2020-05-03 [facility] of 19:52:00 [facility] EKG-12 LEAD 2020-05-03 [facility] of 19:00:54 [facility] CONSENT/REFUSAL FOR DIAGNOSIS AND 2020-05-03 [facility] TREATMENT 18:25:10 Unassigned, No [facility] MEDICAL RELEASE/CLEARANCE FORMS 2019-11-16 [facility] 05:01:00 Unassigned, No [facility] POCT GLUCOSE (AUTOMATED) 2019-10-28 Faustino Mason [facility] of 12:52:00 [facility] URIC ACID 2019-10-28 Marlon, [facility] of 09:13:00 [facility] COMP. METABOLIC PANEL ([id number]) 2019-10-28 Marlon, Faustino iversity of 09:13:00 [facility] CBC WITH DIFFERENTIAL 2019-10-28 Marlon, Faustino Pattison of 09:13:00 [facility] N-TERMINAL PRO-BNP 2019-10-28 [facility] 09:13:00 [facility] POCT GLUCOSE (AUTOMATED) 2019-10-28 Marlon, Faustino Univers ity of 01:54:00 [facility] POCT GLUCOSE (AUTOMATED) 2019-10-27 Marlon, Faustino [facility] ity of 21:06:00 [facility] POCT GLUCOSE (AUTOMATED) 2019-10-27 Marlon, Faustino [facility] ity of 16:18:00 [facility] TROPONIN I 2019-10-27 Faustino Mason P[facility] of 15:00:00 [facility] PROFILE / HEMOGRAM 2019-10-27 [facility] of 15:00:00 [facility] POCT GLUCOSE (AUTOMATED) 2019-10-27 Marlon, Faustino Univers ity of 14:34:00 [facility] POCT GLUCOSE (AUTOMATED) 2019-10-27 [facility] 12:39:00 [facility] URINALYSIS 2019-10-27 [facility] 10:46:00 [facility] POCT GLUCOSE (AUTOMATED) 2019-10-27 Marlon, Faustino Univers ity of 10:46:00 [facility] UREA NITROGEN, URINE RANDOM 2019-10-27 [facility] 10:46:00 [facility] SODIUM, URINE RANDOM 2019-10-27 [facility] 10:46:00 [facility] PROTEIN CREAT RATIO URINE RANDOM 2019-10-27 [facility] 10:46:00 [facility] URIC ACID 2019-10-27 [facility] 09:10:00 [facility] MAGNESIUM 2019-10-27 [facility] 09:10:00 [facility] TROPONIN I 2019-10-27 Faustino Mason P[facility] of 09:10:00 [facility] COMP. METABOLIC PANEL ([id number]) 2019-10-27 Faustino Mason Un iversity of 09:10:00 [facility] SEDIMENTATION RATE 2019-10-27 Faustino Mason P[facility] of 09:10:00 [facility] CBC WITH DIFFERENTIAL 2019-10-27 [facility] 09:10:00 [facility] N-TERMINAL PRO-BNP 2019-10-27 [facility] 09:10:00 [facility] POCT GLUCOSE (AUTOMATED) 2019-10-27 Faustino Mason [facility] ity of 08:44:00 [facility] POCT GLUCOSE (AUTOMATED) 2019-10-27 Faustino Mason [facility] ity of 06:32:00 [facility] POCT GLUCOSE (AUTOMATED) 2019-10-27 Aisha Bah Univer sity of 05:30:00 [facility] CBC WITH DIFFERENTIAL 2019-10-27 Aisha Bahit y of 04:30:00 [facility] GLYCOSYLATED HEMOGLOBIN (A1C) 2019-10-27 Faustino Mason Un iversity of 04:30:00 [facility] CORONAVIRUS COVID-19 TESTING 2019-10-27 Aisha Bah Un iversity of 04:30:00 [facility] POCT GLUCOSE (AUTOMATED) 2019-10-27 Aisha Bah [facility] sity of 04:29:00 [facility] POCT GLUCOSE (AUTOMATED) 2019-10-27 Aisha Bah [facility] sity of 03:32:00 [facility] POCT GLUCOSE (AUTOMATED) 2019-10-27 Aisha Bah [facility] sity of 02:53:00 [facility] PHOSPHORUS 2019-10-27 Faustino Mason P[facility] of 02:47:00 [facility] CREATINE KINASE 2019-10-27 Faustino Mason P[facility] of 02:47:00 [facility] URIC ACID 2019-10-27 Faustino Mason P[facility] of 02:47:00 [facility] LIPASE 2019-10-27 [facility] of 02:47:00 [facility] MAGNESIUM 2019-10-27 Marlon, [facility] of 02:47:00 [facility] FERRITIN SERUM 2019-10-27 Marlon, [facility] of 02:47:00 [facility] TROPONIN I 2019-10-[address] [facility] of 02:47:00 [facility] HEPATIC FUNCTION PANEL ([id number]) 2019-10-27 Faustino Mason niversity of (ALB,T.PRO,BILI 02:47:00 [facility],BU/BC,ALT,AST,ALK PHOS) [place] BASIC METABOLIC PANEL (NA, K, CL, 2019-10-27 [facility] of CO2, GLUCOSE, BUN, CREATININE, CA) 02:47:00 [facility] LIPID PANEL ([id number])(TOTAL 2019-10-27 [facility] sity of CHOLESTEROL, TRIGLYCERIDES, HDL) 02:47:00 [facility] EKG-12 LEAD 2019-10-27 [facility] of 02:12:49 [facility] EKG-12 LEAD 2019-10-27 [facility] of 01:34:49 [facility] URIC ACID 2019-10-[address] [facility] of 20:20:00 [facility] IRON PANEL 2019-10-26 [facility] of 20:20:00 [facility] ASSIGNMENT OF BENEFITS 2019-10-26 [facility] y of 19:55:10 Unassigned, No [facility] POCT GLUCOSE (AUTOMATED) 2019-10-01 Pritesh Sunshine [facility] sity of 16:41:00 [facility] BASIC METABOLIC PANEL (NA, K, CL, 2019-10-01 Lauro Mcneil Pattison of CO2, GLUCOSE, BUN, CREATININE, CA) 12:53:00 [facility] POCT GLUCOSE (AUTOMATED) 2019-10-01 Pritesh [facility] of 12:18:00 [facility] POCT GLUCOSE (AUTOMATED) 2019-10-01 Pritesh Sunshine [facility] s[facility] of 01:51:00 [facility] POCT GLUCOSE (AUTOMATED) 2019-09-30 Pritesh [facility] sity of 21:28:00 [facility] POCT GLUCOSE (AUTOMATED) 2019-09-30 Pritesh Sunshine [facility] sity of 16:51:00 [facility] POCT GLUCOSE (AUTOMATED) 2019-09-30 Pritesh Sunshine [facility] sity of 12:41:00 [facility] OCCULT (GUAIAC) BLOOD 2019-09-30 [facility] of 09:00:00 [facility] MAGNESIUM 2019-09-30 [facility] of 08:25:00 [facility] BASIC METABOLIC PANEL (NA, K, CL, 2019-09-30 [facility], [facility] of CO2, GLUCOSE, BUN, CREATININE, CA) 08:25:[address] [facility] [address] THORAX WO CONTRAST 2019-09-30 [facility] of 02:53:31 [facility] URINALYSIS 2019-09-30 Brennan, [facility] of 02:28:00 [facility] EXTRA TUBE URINE CULTURE 2019-09-30 Chong Brennan [facility] ity of 02:28:00 [facility] POCT GLUCOSE (AUTOMATED) 2019-09-30 Pritesh Sunshine [facility] sity of 01:26:00 [facility] XR CHEST 1 VW 2019-09-29 Anu [facility] of 22:13:05 [facility] XR FOOT 3+ VW RIGHT 2019-09-29 Anu [facility] of 22:13:05 [facility] TROPONIN I 2019-09-29 Brennan, [facility] of 21:57:00 [facility] HEPATIC FUNCTION PANEL ([id number]) 2019-09-29 Chong Brennan niversity of (ALB,T.PRO,BILI 21:57:00 [facility] T,BU/BC,ALT,AST,ALK PHOS) [place] BASIC METABOLIC PANEL (NA, K, CL, 2019-09-29 Brennan, Vafrancisco Pattison of CO2, GLUCOSE, BUN, CREATININE, CA) 21:57:00 [facility] CBC WITH DIFFERENTIAL 2019-09-29 Chong Brennan P[facility] of 21:57:00 [facility] PROTHROMBIN TIME / INR 2019-09-29 [facility]ogn [facility] of 21:57:00 [facility] ACTIVATED PARTIAL THRMPLAS CARLTON 2019-09-29 Chong Brennan niversity of 21:57:00 [facility] N-TERMINAL PRO-BNP 2019-09-29 Chong Brennan Pattison of 21:57:00 [facility] EKG-12 LEAD 2019-09-29 Brennan, [facility] of 21:47:42 [facility] COMP. METABOLIC PANEL (78180) 2019-09-29 Igor Borrego Un iversity of 15:14:00 [facility] CBC WITH DIFFERENTIAL 2019-09-29 [place], [facility] of 15:14:00 [facility] XR CHEST 2 VW 2019-09-29 [place], [facility] of 14:58:38 [facility] CONSENT/REFUSAL FOR DIAGNOSIS AND 2019-09-29 Doctor [facility] 14:13:28 Unassigned, No [facility] ASSIGNMENT OF BENEFITS 2019-09-29 Doctor [facility] y of 14:13:08 Unassigned, No [facility] REFERRAL OCCUPATIONAL THERAPY 2019-09-28 Gilberto Byrne Un iversity of 00:00:00 [facility] [B] CMP 2019-09-28 University of 00:00:00 [facility] [B] CBC 2019-09-28 University of 00:00:00 [facility] ASSIGNMENT OF BENEFITS 2019-09-21 Doctor [facility] of 18:05:04 Unassigned, No [facility] CONSENT/REFUSAL FOR DIAGNOSIS AND 2019-09-21 [facility] 18:03:13 Unassigned, No [facility] NOTICE OF BILLING PRACTICES FOR 2019-09-21 Doctor University of MEDICARE PATIENTS 18:02:38 Unassigned, No [facility] CONSENT TO PHOTOGRAPH 2019-09-21 [facility] of 05:01:00 Unassigned, No [facility] REFERRAL OCCUPATIONAL THERAPY 2019-09-21 Gilberto Byrne Un iversity of 00:00:00 [facility] XR CHEST 2 VW 2019-09-19 Gisselle Kwon Pattison of 01:24:42 [facility] POCT GLUCOSE (AUTOMATED) 2019-09-15 u [facility], [facility] ity of 17:47:00 Wayne [facility] BASIC METABOLIC PANEL (NA, K, CL, 2019-09-15 Derrick Curiel [place] [address], GLUCOSE, BUN, CREATININE, CA) 16:59:00 [facility] CBC WITH DIFFERENTIAL 2019-09-15 [facility]:59[facility]00 [facility] POCT GLUCOSE (AUTOMATED) 2019-09-15 Abu Ather, Univers ity of 13:32:00 [facility] POCT GLUCOSE (AUTOMATED) 2019-09-15 Abu [facility], Univers ity of 03:19:00 [facility] POCT GLUCOSE (AUTOMATED) 2019-09-14 Abu [facility], Univers ity of 22:25:00 [facility] POCT GLUCOSE (AUTOMATED) 2019-09-14 Abu [facility], Univers ity of 17:45:00 [facility] XR CHEST 1 VW 2019-09-14 [facility] of 13:58:44 [facility] POCT GLUCOSE (AUTOMATED) 2019-09-14 u [facility], Univers ity of 13:29:00 [facility] MAGNESIUM 2019-09-14 [facility] of 09:47:00 [facility] BASIC METABOLIC PANEL (NA, K, CL, 2019-09-14 [facility] of CO2, GLUCOSE, BUN, CREATININE, CA) 09:47:00 [facility] EXTRA TUBE LT. GREEN 2019-09-14 [facility] of 09:47:00 [facility] POCT GLUCOSE (AUTOMATED) 2019-09-14 [facility], Univers ity of 08:10:00 [facility] POCT GLUCOSE (AUTOMATED) 2019-09-14 u [facility], Univers ity of 02:18:00 [facility] POCT GLUCOSE (AUTOMATED) 2019-09-13 u [facility], Univers ity of 23:04:00 [facility] POCT GLUCOSE (AUTOMATED) 2019-09-13 Abu Ather, Univers ity of 17:43:00 [facility] POCT GLUCOSE (AUTOMATED) 2019-09-13 Abu [facility], Univers ity of 13:11:00 [facility] SPUTUM CULTURE 2019-09-13 [facility] of 12:07:00 [facility] MAGNESIUM 2019-09-13 [facility] of 09:51:00 [facility] BASIC METABOLIC PANEL (NA, K, CL, 2019-09-13 [facility] of CO2, GLUCOSE, BUN, CREATININE, CA) 09:51:00 [facility] CBC WITH DIFFERENTIAL 2019-09-13 [facility] of 09:51:00 [facility] POCT GLUCOSE (AUTOMATED) 2019-09-13 Abu Atherah, Univers ity of 02:18:00 [facility] MAGNESIUM 2019-09-13 [facility] of 00:05:00 [facility] TROPONIN I 2019-09-13 [facility] of 00:05:00 [facility] PROCALCITONIN 2019-09-13 [facility] of 00:05:00 [facility] POCT GLUCOSE (AUTOMATED) 2019-09-12 Abu Atherah, Univers ity of 22:24:00 [facility] POCT GLUCOSE (AUTOMATED) 2019-09-12 Sang Leal ity of 19:31:00 [facility] ACTIVATED PARTIAL THRMPLAS CARLTON 2019-09-12 Sang Leal U niversity of 18:05:00 [facility] EKG-12 LEAD 2019-09-12 Sang Leal of 16:53:02 [facility] BLOOD CULTURE SCREEN 2019-09-12 Singer [facility] of 16:25:00 [facility] LACTIC ACID WHOLE BLOOD 2019-09-12 Sang Leali ty of 16:11:00 [facility] BLOOD CULTURE SCREEN 2019-09-12 Sang Leal of 16:10:00 [facility] PROTHROMBIN TIME / INR 2019-09-12 Sang Lealit y of 15:45:00 [facility] CBC WITH DIFFERENTIAL 2019-09-12 Sang Leal of 15:39:00 [facility] XR CHEST 1 VW 2019-09-12 Singer Sangshlomo Padron of 15:34:44 [facility] POCT GLUCOSE (AUTOMATED) 2019-09-12 Sang Leal ity of 15:24:00 [facility] LIPASE 2019-09-12 aSng Leal of 15:21:00 [facility] MAGNESIUM 2019-09-12 Singer Sang Pattison of 15:21:00 [facility] TROPONIN I 2019-09-12 Singer [facility] of 15:21:00 [facility] COMP. METABOLIC PANEL ([id number]) 2019-09-12 Sang Leal iversity of 15:21:00 [facility] N-TERMINAL PRO-BNP 2019-09-12 Leal, [facility] of 15:21:00 [facility] EKG-12 LEAD 2019-09-12 Singer [facility] of 15:17:38 [facility] EMERGENCY SERVICES AGREEMENTS AND 2019-09-12 Doctor University of AUTHORIZATIONS 06:01:00 Unassigned, No [facility] POCT GLUCOSE (AUTOMATED) 2019-09-07 Alnas, Majd Univers ity of 18:10:00 [facility] POCT GLUCOSE (AUTOMATED) 2019-09-07 Alnas, Majd Univers ity of 14:24:00 [facility] POCT GLUCOSE (AUTOMATED) 2019-09-07 Alnas, Majd Univers ity of 02:48:00 [facility] POCT GLUCOSE (AUTOMATED) 2019-09-06 Alnas, Majd Univers ity of 23:24:00 [facility] POCT GLUCOSE (AUTOMATED) 2019-09-06 Alnas, Majd Univers ity of 18:22:00 [facility] POCT GLUCOSE (AUTOMATED) 2019-09-06 Alnas, Majd Univers ity of 13:58:00 [facility] PHOSPHORUS 2019-09-06 [facility] of 07:01:00 [facility] BASIC METABOLIC PANEL (NA, K, CL, 2019-09-06 [facility] CO2, GLUCOSE, BUN, CREATININE, CA) 07:01:00 [facility] CBC WITH DIFFERENTIAL 2019-09-06 [facility] of 07:01:00 [facility] POCT GLUCOSE (AUTOMATED) 2019-09-06 Alnas, Majd Univers ity of 01:21:00 [facility] POCT GLUCOSE (AUTOMATED) 2019-09-05 Alnas, Majd Univers ity of 23:00:00 [facility] POCT GLUCOSE (AUTOMATED) 2019-09-05 Alnas, Majd Univers ity of 18:39:00 [facility] POCT GLUCOSE (AUTOMATED) 2019-09-05 Alnas, Majd Univers ity of 13:46:00 [facility] XR CHEST 1 VW 2019-09-05 Abu [facility] 11:35:00 Emran [facility] PHOSPHORUS 2019-09-05 [facility] 09:46:00 [facility] MAGNESIUM 2019-09-05 [facility] of 09:46:00 [facility] BASIC METABOLIC PANEL (NA, K, CL, 2019-09-05 [facility] of CO2, GLUCOSE, BUN, CREATININE, CA) 09:46:00 [facility] CBC WITH DIFFERENTIAL 2019-09-05 [facility] of 09:46:00 [facility] POCT GLUCOSE (AUTOMATED) 2019-09-05 Mario Lewis [facility] ity of 05:57:00 [facility] POCT GLUCOSE (AUTOMATED) 2019-09-05 Gris, Radheshyam Unive rsity of 03:18:00 [facility] POCT GLUCOSE (AUTOMATED) 2019-09-05 Gris, Radheshyam Unive rsity of 02:54:00 [facility] POCT GLUCOSE (AUTOMATED) 2019-09-04 Gris, Radheshyam Unive rsity of 22:13:00 [facility] POCT GLUCOSE (AUTOMATED) 2019-09-04 Gris, Radheshyam Unive rsity of 17:58:00 [facility] POCT GLUCOSE (AUTOMATED) 2019-09-04 Gris, Radheshyam Unive rsity of 14:17:00 [facility] IONIZED CALCIUM 2019-09-04 Smith Giron Pattison of 12:48:00 [facility] EKG-12 LEAD 2019-09-04 Se[place]rook [facility] of 11:31:27 [facility] XR CHEST 1 VW 2019-09-04 [place]rook [facility] 11:20:00 [facility] POCT GLUCOSE (AUTOMATED) 2019-09-04 Gris, Radheshyam Unive rsity of 10:48:00 [facility] MAGNESIUM 2019-09-04 Elmo, [facility] of 10:45:00 [facility] BASIC METABOLIC PANEL (NA, K, CL, 2019-09-04 [facility] of CO2, GLUCOSE, BUN, CREATININE, CA) 10:45:00 [facility] CBC WITH DIFFERENTIAL 2019-09-04 Se[place]rook [facility] of 10:45:00 [facility] POCT GLUCOSE (AUTOMATED) 2019-09-04 Gris, Radheshyam Unive rsity of 09:08:00 [facility] POCT GLUCOSE (AUTOMATED) 2019-09-04 Gris, Radheshyam Unive rsity of 05:33:00 [facility] POCT GLUCOSE (AUTOMATED) 2019-09-04 Gris, Radheshyam Unive rsity of 03:33:00 [facility] POCT GLUCOSE (AUTOMATED) 2019-09-04 Gris, Radheshyam Unive rsity of 01:47:00 [facility] POCT GLUCOSE (AUTOMATED) 2019-09-04 Gris, Radheshyam Unive rsity of 01:29:00 [facility] POCT GLUCOSE (AUTOMATED) 2019-09-03 Gris, Radheshyam Unive rsity of 23:26:00 [facility] XR CHEST 1 VW 2019-09-03 [place], [facility] of 22:20:00 [facility] POCT GLUCOSE (AUTOMATED) 2019-09-03 Gris, Radheshyam Unive rsity of 22:05:00 [facility] POCT GLUCOSE (AUTOMATED) 2019-09-03 Gris, Radheshyam Unive rsity of 17:27:00 [facility] POCT GLUCOSE (AUTOMATED) 2019-09-03 Gris, Radheshyam Unive rsity of 14:41:00 [facility] XR CHEST 1 VW 2019-09-03 [facility] 11:25:00 [facility] EKG-12 LEAD 2019-09-03 Elmo, [facility] 11:12:03 [facility] MAGNESIUM 2019-09-03 [facility] of 09:41:00 [facility] BASIC METABOLIC PANEL (NA, K, CL, 2019-09-03 [facility] of CO2, GLUCOSE, BUN, CREATININE, CA) 09:41:00 [facility] CBC WITH DIFFERENTIAL 2019-09-03 [facility] 09:40:00 [facility] POCT GLUCOSE (AUTOMATED) 2019-09-03 Gris, Radheshyam Unive rsity of 09:04:00 [facility] POCT GLUCOSE (AUTOMATED) 2019-09-03 Gris, Radheshyam Unive rsity of 06:01:00 [facility] POCT GLUCOSE (AUTOMATED) 2019-09-03 Gris, Radheshyam Unive rsity of 01:24:00 [facility] POCT GLUCOSE (AUTOMATED) 2019-09-02 Gris, Radheshyam Unive rsity of 22:05:00 [facility] POCT GLUCOSE (AUTOMATED) 2019-09-02 Gris, Radheshyam Unive rsity of 18:41:00 [facility] POCT GLUCOSE (AUTOMATED) 2019-09-02 Gris, Radhumzaam Unive rsity of 13:45:00 [facility] XR CHEST 1 VW 2019-09-02 [facility] of 12:20:00 [facility] POCT GLUCOSE (AUTOMATED) 2019-09-02 [facility], [facility] Unive rsity of 10:14:00 [facility] PHOSPHORUS 2019-09-[address] [facility] of 07:23:00 [facility] MAGNESIUM 2019-09-02 [facility] of 07:23:00 [facility] HEPATIC FUNCTION PANEL ([id number]) 2019-09-[address] [facility] [facility] niversity of (ALB,T.PRO,BILI 07:23:00 [facility],BU/BC,ALT,AST,ALK PHOS) [place] BASIC METABOLIC PANEL (NA, K, CL, 2019-09-02 [facility] of CO2, GLUCOSE, BUN, CREATININE, CA) 07:23:00 [facility] PROFILE / HEMOGRAM 2019-09-[address] [facility] of 07:23:00 [facility] ABG+COOX+NA+K+GLU+CA2+ 2019-09-02 [facility] y of 07:22:00 [facility] POCT GLUCOSE (AUTOMATED) 2019-09-02 Gris, [facility] Un[facility] of 06:27:00 [facility] POCT GLUCOSE (AUTOMATED) 2019-09-02 Gris, [facility] Unive rsity of 05:03:00 [facility] AC PANEL 20 + LACTIC ACID 2019-09-02 Elmo, Shuab Univ sity of 03:02:00 [facility] POCT GLUCOSE (AUTOMATED) 2019-09-02 Gris, Radheshyam Unive rsity of 01:18:00 [facility] POCT GLUCOSE (AUTOMATED) 2019-09-01 Gris, [facility] rsity of 23:54:00 [facility] PHOSPHORUS 2019-09-01 Elmo, [facility] of 23:32:00 [facility] MAGNESIUM 2019-09-01 [place], [facility] of 23:32:00 [facility] BASIC METABOLIC PANEL (NA, K, CL, 2019-09-01 Elmo, [facility] of CO2, GLUCOSE, BUN, CREATININE, CA) 23:32:00 [facility] ACTIVATED PARTIAL THRMPLAS CARLTON 2019-09-01 Elmo, uab U niversity of 23:32:00 [facility] ABG+COOX+NA+K+GLU+CA2+ 2019-09-01 [facility] y of 23:31:00 [facility] MRSA / MSSA SCREEN BY PCR, BRITNEY 2019-09-01 [facility] of 23:12:00 [facility] PREPARE PACKED RBC 2019-09-01 [place], [facility] of 20:58:25 [facility] PROTHROMBIN TIME / INR 2019-09-01 [place], [facility] y of 20:47:00 [facility] ACTIVATED PARTIAL THRMPLAS CARLTON 2019-09-01 [place], ua U niversity of 20:47:00 [facility] AC PANEL 20 + LACTIC ACID 2019-09-01 [place], [facility] sity of 20:47:00 [facility] TRANSFUSE PACKED RBC 2019-09-01 [place], [facility] of 20:35:41 [facility] POCT GLUCOSE (AUTOMATED) 2019-09-01 Gris [facility] rsity of 20:32:00 [facility] EKG-12 LEAD 2019-09-01 Elmo, [facility] of 20:01:09 [facility] XR CHEST 1 VW 2019-09-01 [facility] of 19:41:56 [facility] PHOSPHORUS 2019-09-01 Elmo, [facility] of 19:38:00 [facility] MAGNESIUM 2019-09-01 [place], [facility] of 19:38:00 [facility] BASIC METABOLIC PANEL (NA, K, CL, 2019-09-01 [facility] of CO2, GLUCOSE, BUN, CREATININE, CA) 19:38:00 [facility] CBC WITH DIFFERENTIAL 2019-09-01 [facility] of 19:38:00 [facility] ABG+COOX+NA+K+GLU+CA2+ 2019-09-01 [facility] y of 19:30:00 [facility] ISTAT ACUTE CARE ARTERIAL 2019-09-01 Gris, [facility] ersity of 17:59:00 [facility] POCT ACT HIGH RANGE 2019-09-01 Gris, [facility] of 17:56:00 [facility] TRANSFUSE PACKED RBC 2019-09-01 [facility] y of 17:32:38 [facility] ACUTE CARE ARTERIAL 2019-09-01 Gris, [facility] ersity of 17:04:00 [facility] POCT ACT HIGH RANGE 2019-09-01 Gris, [facility] of 17:01:00 [facility] HEMOGLOBIN 2019-09-01 [facility], [facility] of 16:58:00 [facility] HEMATOCRIT 2019-09-01 Domingo, [facility] of 16:58:00 [facility] PLATELET COUNT 2019-09-01 Domingo, [facility] of 16:58:00 [facility] PROTHROMBIN TIME / INR 2019-09-01 [facility] of 16:58:00 [facility] ACTIVATED PARTIAL THRMPLAS CARLTON 2019-09-01 Domingo, [facility] of 16:58:00 [facility] FIBRINOGEN 2019-09-01 Domingo, [facility] of 16:58:00 [facility] ACUTE CARE ARTERIAL 2019-09-01 Gris, [facility] ersity of 16:38:00 [facility] POCT ACT HIGH RANGE 2019-09-01 [facility], [facility] of 16:35:00 [facility] ISTAT ACUTE CARE ARTERIAL 2019-09-01 Gris, [facility] ersity of 16:07:00 [facility] POCT ACT HIGH RANGE 2019-09-01 [facility], [facility] of 16:05:00 [facility] ACUTE CARE ARTERIAL 2019-09-01 [facility], [facility] ersity of 15:40:00 [facility] POCT ACT HIGH RANGE 2019-09-01 [facility], [facility] of 15:21:00 [facility] TRANSFUSE PACKED RBC 2019-09-01 [facility] y of 15:15:20 [facility] TRANSFUSE PACKED RBC 2019-09-01 [facility] y of 15:15:01 [facility] POCT ACT HIGH RANGE 2019-09-01 Gris, [facility] of 15:10:00 [facility] ISTA ACUTE CARE ARTERIAL 2019-09-01 Gris, [facility] ersity of 15:03:00 [facility] POCT ACT HIGH RANGE 2019-09-01 [facility], [facility] of 15:00:00 [facility] PREPARE PACKED RBC 2019-09-01 [facility] of 14:20:50 [facility] TRANSFUSE PACKED RBC 2019-09-01 [facility] y of 14:06:15 [facility] ACUTE CARE ARTERIAL 2019-09-01 [facility], [facility] ersity of 13:58:00 [facility] POCT ACT HIGH RANGE 2019-09-01 Gris, [facility] of 13:55:00 [facility] PREPARE PACKED RBC 2019-09-01 Elmo, [facility] of 12:50:33 [facility] CORONARY ARTERY BYPASS GRAFT 2019-09-01 [place]ro[place], [facility] versity of 12:35:00 [facility] EKG-12 LEAD 2019-09-01 Elmo, [facility] of 11:59:37 [facility] POCT GLUCOSE (AUTOMATED) 2019-09-01 Gris, [facility] Unive rsity of 11:28:00 [facility] POCT GLUCOSE (AUTOMATED) 2019-09-01 Gris, [facility] Unive rsity of 09:35:00 [facility] POCT GLUCOSE (AUTOMATED) 2019-09-01 Gris, [facility] Unive rsity of 05:58:00 [facility] POCT GLUCOSE (AUTOMATED) 2019-09-01 Gris, [facility] Unive rsity of 02:15:00 [facility] POCT GLUCOSE (AUTOMATED) 2019-08-31 Gris, [facility] Unive rsity of 22:11:00 [facility] HB ABO GROUPING 2019-08-31 Elmo, [facility] of 20:04:00 [facility] POCT GLUCOSE (AUTOMATED) 2019-08-31 Gris, Radheshyam Unive rsity of 17:32:00 [facility] POCT GLUCOSE (AUTOMATED) 2019-08-31 Gris, Radheshyam Unive rsity of 13:38:00 [facility] POCT GLUCOSE (AUTOMATED) 2019-08-31 Gris, Radheshyam Unive rsity of 10:30:00 [facility] CBC WITH DIFFERENTIAL 2019-08-31 Pablo Curiel [facility] ty of 10:24:00 [facility] BASIC METABOLIC PANEL (NA, K, CL, 2019-08-31 [facility] of CO2, GLUCOSE, BUN, CREATININE, CA) 10:23:00 [facility] POCT GLUCOSE (AUTOMATED) 2019-08-31 Gris, Radheshyam Unive rsity of 06:15:00 [facility] POCT GLUCOSE (AUTOMATED) 2019-08-31 Gris, Radheshyam Unive rsity of 02:07:00 [facility] POCT GLUCOSE (AUTOMATED) 2019-08-30 Gris, Radheshyam Unive rsity of 21:31:00 [facility] POCT GLUCOSE (AUTOMATED) 2019-08-30 Gris, Radheshyam Unive rsity of 17:45:00 [facility] POCT GLUCOSE (AUTOMATED) 2019-08-30 Gris, Radheshyam Unive rsity of 13:52:00 [facility] POCT GLUCOSE (AUTOMATED) 2019-08-30 Gris, Radheshyam Unive rsity of 11:02:00 [facility] POCT GLUCOSE (AUTOMATED) 2019-08-30 Gris, Radheshyam Unive rsity of 05:36:00 [facility] POCT GLUCOSE (AUTOMATED) 2019-08-30 Gris, Radheshyam Unive rsity of 03:26:00 [facility] POCT GLUCOSE (AUTOMATED) 2019-08-29 Gris, Radheshyam Unive rsity of 17:14:00 [facility] POCT GLUCOSE (AUTOMATED) 2019-08-29 Gris, Radheshyam Unive rsity of 13:44:00 [facility] POCT GLUCOSE (AUTOMATED) 2019-08-29 Gris, Radheshyam Unive rsity of 09:52:00 [facility] COMP. METABOLIC PANEL ([id number]) 2019-08-29 Jadiel Kemp iversity of 09:43:00 [facility] POCT GLUCOSE (AUTOMATED) 2019-08-29 Gris, Radheshyam Unive rsity of 06:19:00 [facility] POCT GLUCOSE (AUTOMATED) 2019-08-29 Gris, Radheshyam Unive rsity of 03:44:00 [facility] US ABDOMEN LIMITED WITH DOPPLER 2019-08-28 Jadiel Kemp Pattison of 22:49:00 [facility] POCT GLUCOSE (AUTOMATED) 2019-08-28 Gris, Radheshyam Unive rsity of 21:32:00 [facility] POCT GLUCOSE (AUTOMATED) 2019-08-28 Gris, Radheshyam Unive rsity of 17:20:00 [facility] MAGNESIUM 2019-08-28 [facility] of 14:28:00 [facility] BASIC METABOLIC PANEL (NA, K, CL, 2019-08-28 [facility] of CO2, GLUCOSE, BUN, CREATININE, CA) 14:28:00 [facility] CBC WITH DIFFERENTIAL 2019-08-28 [facility] 14:28:00 [facility] POCT GLUCOSE (AUTOMATED) 2019-08-28 Gris, Radheshyam Unive rsity of 13:25:00 [facility] POCT GLUCOSE (AUTOMATED) 2019-08-28 Gris, Radheshyam Unive rsity of 07:19:00 [facility] POCT GLUCOSE (AUTOMATED) 2019-08-28 Gris, Radheshyam Unive rsity of 03:00:00 [facility] POCT GLUCOSE (AUTOMATED) 2019-08-27 Gris, Radheshyam Unive rsity of 21:45:00 [facility] POCT GLUCOSE (AUTOMATED) 2019-08-27 Gris, Radheshyam Unive rsity of 17:51:[address] [facility] [address] THORAX WO CONTRAST 2019-08-27 Tay [facility] of 16:53:12 [facility] POCT GLUCOSE (AUTOMATED) 2019-08-27 Gris, Radheshyam Unive rsity of 13:54:00 [facility] POCT GLUCOSE (AUTOMATED) 2019-08-27 Gris, Radheshyam Unive rsity of 10:34:00 [facility] POCT GLUCOSE (AUTOMATED) 2019-08-27 Gris, Radheshyam Unive rsity of 05:56:00 [facility] POCT GLUCOSE (AUTOMATED) 2019-08-27 Gris, Radheshyam Unive rsity of 04:11:00 [facility] POCT GLUCOSE (AUTOMATED) 2019-08-27 Gris, Radheshyam Unive rsity of 01:25:00 [facility] POCT GLUCOSE (AUTOMATED) 2019-08-26 Gris, Radheshyam Unive rsity of 23:42:00 [facility] POCT GLUCOSE (AUTOMATED) 2019-08-26 Gris, Radheshyam Unive rsity of 22:59:00 [facility] ACUTE CARE ARTERIAL BLOOD GAS 2019-08-26 Jadiel Kemp iversity of 20:19:00 [facility] BILATERAL VEIN MAPPING BY VASCULAR 2019-08-26 Jadiel Kemp Pattison of LAB 19:12:01 [facility] POCT GLUCOSE (AUTOMATED) 2019-08-26 Gris, Radheshyam Unive rsity of 18:06:00 [facility] POCT GLUCOSE (AUTOMATED) 2019-08-26 Gris, Radheshyam Unive rsity of 15:29:00 [facility] COLONOSCOPY (ENDO) 2019-08-26 Grzegorz Crum Pattison o f 14:06:55 [facility] SURGICAL PATHOLOGY EXAM 2019-08-26 Marlo Osman [facility] of 13:44:00 [facility] COLONOSCOPY 2019-08-26 Marlo Osman Pattison of 13:20:00 [facility] ESOPHAGOGASTRODUODENOSCOPY 2019-08-26 Marlo Osman [facility] ersity of 13:20:00 [facility] EGD (ENDO) 2019-08-26 Grzegorz Crum Pattison of 12:37:08 [facility] POCT GLUCOSE (AUTOMATED) 2019-08-26 Gris, Radheshyam Unive rsity of 11:51:00 [facility] POCT GLUCOSE (AUTOMATED) 2019-08-25 Gris, Radheshyam Unive rsity of 21:37:00 [facility] [facility] PO[facility]UCOSE (AUTOMATED) 2019-08-25 Gris, Radheshyam Unive rsity of 20:44:00 [facility] POCT GLUCOSE (AUTOMATED) 2019-08-25 Gris, Radheshyam Unive rsity of 20:43:00 [facility] POCT GLUCOSE (AUTOMATED) 2019-08-25 Gris, Radheshyam Unive rsity of 20:11:00 [facility] POCT GLUCOSE (AUTOMATED) 2019-08-25 Gris, Radheshyam Unive rsity of 19:43:00 [facility] POCT GLUCOSE (AUTOMATED) 2019-08-25 Gris, Radheshyam Unive rsity of 18:58:00 [facility] POCT GLUCOSE (AUTOMATED) 2019-08-25 Gris, Radheshyam Unive rsity of 18:36:00 [facility] POCT GLUCOSE (AUTOMATED) 2019-08-25 Gris, Radheshyam Unive rsity of 18:17:00 [facility] POCT GLUCOSE (AUTOMATED) 2019-08-25 Gris, Radheshyam Unive rsity of 18:10:00 [facility] POCT GLUCOSE (AUTOMATED) 2019-08-25 Gris, Radheshyam Unive rsity of 18:02:00 [facility] POCT GLUCOSE (AUTOMATED) 2019-08-25 Gris, Radheshyam Unive rsity of 17:56:00 [facility] BASIC METABOLIC PANEL (NA, K, CL, 2019-08-25 [facility] [address] of CO2, GLUCOSE, BUN, CREATININE, CA) 10:41:00 [facility] CBC WITH DIFFERENTIAL 2019-08-[facility] XR KUB 2019-08-[facility] of 04[facility]48:36 [facility] POCT GLUCOSE (AUTOMATED) 2019-08-25 Harris Garza Univers ity of 02:02:00 [facility] POCT GLUCOSE (AUTOMATED) 2019-08-24 Harris Garza Univers ity of 22:18:00 [facility] POCT GLUCOSE (AUTOMATED) 2019-08-24 Harris Garza Univers ity of 18:17:00 [facility] POCT GLUCOSE (AUTOMATED) 2019-08-24 Kayla, Harris Univers ity of 13:57:00 [facility] BASIC METABOLIC PANEL (NA, K, CL, 2019-08-24 [facility] of CO2, GLUCOSE, BUN, CREATININE, CA) 12:02:00 [facility] CBC WITH DIFFERENTIAL 2019-08-24 [facility] of 12:02:00 [facility] POCT GLUCOSE (AUTOMATED) 2019-08-24 Davidah, Harris Univers ity of 10:27:00 [facility] POCT GLUCOSE (AUTOMATED) 2019-08-24 Davidah, Harris Univers ity of 05:43:00 [facility] POCT GLUCOSE (AUTOMATED) 2019-08-24 Davidah, Harris Univers ity of 01:53:00 [facility] POCT GLUCOSE (AUTOMATED) 2019-08-23 Kayla, Harris Univers ity of 23:06:00 [facility] IRON 2019-08-23 natividad [facility] of 21:20:00 [facility] TOTAL IRON BINDING CAPACITY 2019-08-23 [facility] vers[facility] of 21:20:00 [facility] POCT GLUCOSE (AUTOMATED) 2019-08-23 Kayla, Harris Univers ity of 18:03:00 [facility] POCT GLUCOSE (AUTOMATED) 2019-08-23 Kayla, Harris Univers ity of 14:22:00 [facility] POCT GLUCOSE (AUTOMATED) 2019-08-23 Kayla, Harris Univers ity of 11:49:00 [facility] MAGNESIUM 2019-08-23 [facility] [address] of 10:25:00 [facility] BASIC METABOLIC PANEL (NA, K, CL, 2019-08-23 [facility] [address] of CO2, GLUCOSE, BUN, CREATININE, CA) 10:25:00 [facility] CBC WITH DIFFERENTIAL 2019-08-23 [facility] [address] of 10:25:00 [facility] N-TERMINAL PRO-BNP 2019-08-23 Brandon [facility] of 10:25:00 [facility] POCT GLUCOSE (AUTOMATED) 2019-08-23 Kayla, Harris Univers ity of 06:21:00 [facility] POCT GLUCOSE (AUTOMATED) 2019-08-23 Davidah, Harris Univers ity of 01:52:00 [facility] POCT GLUCOSE (AUTOMATED) 2019-08-22 Harris Garza [facility] ity of 23:30:00 [facility] POCT GLUCOSE (AUTOMATED) 2019-08-22 Harris Garza [facility] ity of 17:42:00 [facility] XR CHEST 1 VW 2019-08-22 [facility] of 10:25:58 [facility] POCT GLUCOSE (AUTOMATED) 2019-08-22 Harris Garza [facility] ity of 09:59:00 [facility] CBC WITH DIFFERENTIAL 2019-08-22 [facility] of 08:01:00 [facility] MAGNESIUM 2019-08-22 [facility] of 08:00:00 [facility] BASIC METABOLIC PANEL (NA, K, CL, 2019-08-22 [facility] of CO2, GLUCOSE, BUN, CREATININE, CA) 08:00:00 [facility] N-TERMINAL PRO-BNP 2019-08-22 Taylor [facility] of 08:00:00 [facility] POCT GLUCOSE (AUTOMATED) 2019-08-22 Harris Garza [facility] ity of 06:01:00 [facility] POCT GLUCOSE (AUTOMATED) 2019-08-22 Harris Garza [facility] ity of 03:04:00 [facility] CATH PROCEDURE LOG 2019-08-22 [facility] of 00:10:24 Unassigned, No [facility] POCT GLUCOSE (AUTOMATED) 2019-08-21 Harris Garza Univers ity of 22:39:00 [facility] POCT GLUCOSE (AUTOMATED) 2019-08-21 Harris Garza [facility] ity of 18:30:00 [facility] POCT GLUCOSE (AUTOMATED) 2019-08-21 Harris Garza [facility] ity of 13:53:00 [facility] POCT GLUCOSE (AUTOMATED) 2019-08-21 Harris Garza [facility] ity of 10:01:00 [facility] MRSA / MSSA SCREEN BY BRITNEY MTZ 2019-08-21 [facility] of 08:04:00 [facility] BASIC METABOLIC PANEL (NA, K, CL, 2019-08-21 Faustino Mason [facility] of CO2, GLUCOSE, BUN, CREATININE, CA) 08:03:00 [facility] CBC WITH DIFFERENTIAL 2019-08-21 [facility] 08:03:00 [facility] N-TERMINAL PRO-BNP 2019-08-[address] [facility] of 08:03:00 [facility] POCT GLUCOSE (AUTOMATED) 2019-08-21 Harris Garza [facility] ity of 05:11:00 [facility] POCT GLUCOSE (AUTOMATED) 2019-08-21 Harris Garza [facility] ity of 03:22:00 [facility] EKG-12 LEAD 2019-08-21 [facility] of 02:36:48 [facility] EKG-12 LEAD 2019-08-21 [facility] of 02:36:30 [facility] POCT GLUCOSE (AUTOMATED) 2019-08-20 Harris Garza ity of 22:21:00 [facility] POCT GLUCOSE (AUTOMATED) 2019-08-20 Hraris Garza Univers ity of 17:35:00 [facility] POCT GLUCOSE (AUTOMATED) 2019-08-20 Harris Garza ity of 13:40:00 [facility] URIC ACID 2019-08-[address] [facility] of 09:36:00 [facility] TROPONIN I 2019-08-[address] [facility] of 09:36:00 [facility] BASIC METABOLIC PANEL (NA, K, CL, 2019-08-[address] [facility] of CO2, GLUCOSE, BUN, CREATININE, CA) 09:36:00 [facility] CBC WITH DIFFERENTIAL 2019-08-20 [facility] of 09:36:00 [facility] N-TERMINAL PRO-BNP 2019-08-[address] [facility] of 09:36:00 [facility] POCT GLUCOSE (AUTOMATED) 2019-08-20 Harris Garza [facility] ity of 05:32:00 [facility] POCT GLUCOSE (AUTOMATED) 2019-08-20 Harris Garza ity of 02:20:00 [facility] VITAMIN B12, LEVEL 2019-08-19 Harris Garza of 22:59:00 [facility] FOLATE 2019-08-19 Harris Garza University of 22:59:00 [facility] TROPONIN I 2019-08-19 Anika Cisneros [facility] of 22:59:00 [facility] IRON PANEL 2019-08-19 David Harris [facility] of 22:59:00 [facility] VITAMIN D, 25-OH 2019-08-19 David, Harris [facility] of 22:59:00 [facility] POCT GLUCOSE (AUTOMATED) 2019-08-19 [facility] ity of 21:22:00 [facility] POCT GLUCOSE (AUTOMATED) 2019-08-19 [facility] ity of 16:58:00 [facility] ECHO ROUTINE W/DOPPLER COLOR 2019-08-19 Anika Cisneros [facility] versity of 14:58:29 [facility] POCT GLUCOSE (AUTOMATED) 2019-08-19 [facility] ity of 13:26:00 [facility] POCT GLUCOSE (AUTOMATED) 2019-08-19 [facility] ity of 09:58:00 [facility] PHOSPHORUS 2019-08-[address] [facility] of 08:59:00 [facility] URIC ACID 2019-08-19 Marlon, [facility] of 08:59:00 [facility] MAGNESIUM 2019-08-19 [facility] of 08:59:00 [facility] FERRITIN SERUM 2019-08-19 [facility] 08:59:00 [facility] TROPONIN I 2019-08-19 [facility] of 08:59:00 [facility] BASIC METABOLIC PANEL (NA, K, CL, 2019-08-19 [facility] of CO2, GLUCOSE, BUN, CREATININE, CA) 08:59:00 [facility] CBC WITH DIFFERENTIAL 2019-08-19 [facility] of 08:59:00 [facility] N-TERMINAL PRO-BNP 2019-08-19 Marlon, [facility] of 08:59:00 [facility] POCT GLUCOSE (AUTOMATED) 2019-08-19 Harris Garza [facility] ity of 04:38:00 [facility] URIC ACID 2019-08-19 Marlon, [facility] of 02:15:00 [facility] LIPID PANEL (38495)(TOTAL 2019-08-19 Anika Cisneros [facility] sity of CHOLESTEROL, TRIGLYCERIDES, HDL) 02:15:00 [facility] TROPONIN I 2019-08-19 Blayne [facility] of 02:14:00 [facility] POCT GLUCOSE (AUTOMATED) 2019-08-19 DavidHarris cha [facility] ity of 01:10:00 [facility] POCT GLUCOSE (AUTOMATED) 2019-08-18 [facility] ity of 23:31:00 [facility] XR CHEST 2 VW 2019-08-18 [facility] of 20:56:25 [facility] LIPASE 2019-08-18 [facility] of 20:42:00 [facility] TROPONIN I 2019-08-[address] [facility] of 20:42:00 [facility] THYROID STIMULATING HORMONE 2019-08-18 [facility] ersity of 20:42:00 [facility] COMP. METABOLIC PANEL (34622) 2019-08-18 [facility] of 20:42:00 [facility] LIPID PANEL (51807)(TOTAL 2019-08-18 Blayne [facility] sity of CHOLESTEROL, TRIGLYCERIDES, HDL) 20:42:00 [facility] CBC WITH DIFFERENTIAL 2019-08-18 [facility] of 20:42:00 [facility] GLYCOSYLATED HEMOGLOBIN (A1C) 2019-08-18 Anika Cisneros iversity of 20:42:00 [facility] PROTHROMBIN TIME / INR 2019-08-18 [facility] of 20:42:00 [facility] ACTIVATED PARTIAL THRMPLAS CARLTON 2019-08-18 pelon [facility] of 20:42:00 [facility] N-TERMINAL PRO-BNP 2019-08-18 Shanae Barney [facility] of 20:42:00 [facility] EKG-12 LEAD 2019-08-18 [facility] of 20:32:11 [facility] EKG-12 LEAD 2019-08-[address] [facility] of 20:31:05 [facility] NOTICE OF PRIVACY PRACTICES 2019-08-18 [facility] ersity of 20:23:50 Unassigned, No [facility] CONSENT/REFUSAL FOR DIAGNOSIS AND 2019-08-18 [facility] of TREATMENT 20:23:39 Unassigned, No [facility] ASSIGNMENT OF BENEFITS 2019-08-18 Doctor Universit y of 20:23:13 Unassigned, No [facility] Name Branch HOSPITAL ADMISSION 2019-08-18 Doctor [facility] 06:01:00 Unassigned, No [facility] History of Cyst excision [facility] History of Debridement Universit y [facility] History of Hand Surgery Universi ty [facility] History of Knee arthroscopy [facility] History of University of Esophagogastroduodenoscopy [place] [facility] History of Colonoscopy Universit y [facility] History of Surgical removal of U niversity of foreign body [place] [facility] History of CABG [facility] Encounters Start End Encounter Admission Attending Care Care Encounter Source Date/Time Date/Time Type Type Clinicians Facility Department ID 2021-08-10 Outpatient 3 [id number] [facility] 13:27:30 1208 2021-08-10 Outpatient 3 [id number] ENC[facility] REF [facility] 13:24:43 1201 2021-08-10 Outpatient 3 [id number] ENC[facility] REF [id number] E[facility] 13:23:12 [id number] 2021-08-09 [facility] 14:05:32 , [id number] [facility] 2021-08-09 Outpatient MIKKILINENI [facility] 13:09:53 , [id number] [facility] 2021-08-09 Out[facility]INENI [facility] 12:37:31 , [id number] [facility] 2021-08-09 Outpatient MIKKILINENI [facility] 12:31:11 , [id number] [facility]o [facility] 2021-08-09 [facility] 12:15:55 [id number] [facility] 2021-05-14 [facility] [id number] Univers 12:00:24 VONDA urrutia [facility] 2021-05-12 Emergency [facility] [id number] Univers 23:59:53 ity of [facility] 2021-05-11 Emergency [facility] [id number] Univers 17:53:57 ity of [facility] 2021-04-12 2021-04-12 Refill Charly [facility] 1.2.840.114 [id number] Univers 00:00:00 00:00:00 Derrick PRIMARY [id number] it y [place] [phone] [place] [address] 2020-12-27 2020-12-27 [facility] 1.2.840.114 [id number] 00:00:00 00:00:00 Derrick PRIMARY [id number] CARE 4.2.7.2.686 PAVILLION [id number] 389 2020-12-27 2020-12-27 [facility] 1.2.840.114 [id number] Univers 00:00:00 00:00:00 Derrick PRIMARY [id number] it y [place] [phone] [place] dical [address] 2020-12-16 2020-12-16 Orders Doctor ALPHONSE 1.2.840.114 [id number] 00:00:00 00:00:00 Only Unassigned, HERNANDO [id number] [facility] 4.2.7.2.686 [id number] 009 2020-12-16 2020-12-16 Orders Doctor ALPHONSE 1.2.840.114 [id number] Univers 00:00:00 00:00:00 Only Unassigned, HERNANDO 350.1.13.10 ity of [facility] 4.2.7.2.686 You as [phone] [facility] [address] 2020-11-30 2020-11-30 Patient Jatin Douglas 1.2.840.114 [id number] 00:00:00 00:00:00 Outreach Hugh Mcnally [id number] [place] 4.2.7.2.686 [id number] [id number] 2020-11-30 2020-11-30 Patient Jatin Douglas 1.2.840.114 [id number] Univers 00:00:00 00:00:00 Outreach Hugh Tejeda Uli [id number] ity of [place] [phone] [facility] [address] 2020-11-22 2020-11-22 Nurse ALPHONSE Villareal 1.2.840.114 [id number] 00:00:00 00:00:00 Triage Liane Artemio [facility] 350.1.13.10 [facility]PITAL 4.2.7.2.686 [id number] [id number] 2020-11-22 2020-11-22 Nurse ALPHONSE Villareal 1.2.840.114 [id number] Univers 00:00:00 00:00:00 Triage Liane Ulloa HERNANDO 350.1.13.10 i ty of HOSPITAL 4.2.7.2.686 You as [phone] [facility] [address] 2020-11-16 2020-11-16 Orders Doctor ALPHONSE 1.2.840.114 [id number] 00:00:00 00:00:00 Only Unassigned, HERNANDO 350.1.13.10 [facility] 4.2.7.2.686 [id number] 009 2020-11-16 2020-11-16 Orders Doctor ALPHONSE 1.2.840.114 [id number] Univers 00:00:00 00:00:00 Only Unassigned, HERNANDO 350.1.13.10 ity of [facility] 4.2.7.2.686 You as [phone] [facility] [address] 2020-11-11 2020-11-11 Telephone Parks, [facility] [id number] 00:00:00 00:00:00 Derrick PRIMARY 350.1.13.10 CARE 4.2.7.2.686 PAVILLION [phone] 389 2020-11-11 2020-11-11 Telephone Parks, [facility] [id number] Univers 00:00:00 00:00:00 Derrick PRIMARY [id number] it y [place] [phone] [place] dical [address] 2020-11-10 2020-11-10 Transition Jatin Campbell 1.2.840.114 [id number] 00:00:00 00:00:00 of Care Nathalia Mcnally 350.1.13.10 [place] 4.2.7.2.686 [id number] 403 2020-11-10 2020-11-10 [facility] 1.2.840.114 [id number] 00:00:00 00:00:00 Haris PRIMARY 350.1.13.10 [place] CARE 4.2.7.2.686 PAVILLION [id number] 389 2020-11-10 2020-11-10 Transition Jatin Campbell 1.2.840.114 [id number] Univers 00:00:00 00:00:00 of Care Nathalia Mcnally 350.1.13.10 it y of [place]2.[place] [id number] [facility] [address] 2020-11-10 2020-11-10 [facility] 1.2.840.114 [id number] Univers 00:00:00 00:00:00 Haris PRIMARY 350.1.13.10 it y of [place] [phone] [place] dical [address] 2020-10-22 2020-11-09 [facility] Vonda Starks 1.2.840.1 [id number] Univers 06:28:00 18:56:00 Encounter Antonio Villa 350.1.13.10 ity of [facility] 4.2.7 .2.686 David Ov[place] [phone] Medical Laurie, Haris Scott [address] 2020-08-02 2020-08-02 Amisha CUNHA 1.2.840.114 [id number] Univers 00:00:00 00:00:00 (Out) , HERNANDO 350.1.13.10 it y of [facility] 4.2.7.2.686 [place] i [phone] [facility] [address] 2020-07-04 2020-07-04 Orders Doctor ALPHONSE 1.2.840.114 [id number] Univers 00:00:00 00:00:00 Only Unassigned, HERNANDO 350.1.13.10 ity of [facility] 4.2.7.2.686 You as [phone] [facility] [address] 2020-05-03 2020-05-03 Emergency [facility] 1.2.840.114 [id number] Univers 14:26:00 16:25:00 Christa Isaac 350.1.13.10 ity of [place] 4.[place].2.[place] [phone] [facility] [address] 2020-05-03 2020-05-03 Orders Doctor ALPHONSE 1.2.840.114 [id number] Univers 00:00:00 00:00:00 Only Unassigned, HERNANDO 350.1.13.10 ity of [place] [facility] 4.2.7.2.686 You as [id number] [facility] [address] 2020-05-03 2020-05-03 Patient Misael Jatin 1.2.840.114 [id number] Univers 00:00:00 00:00:00 Outreach Hugh Whitey 350.1.13.10 ity of [place].2.7.[place] [id number] [facility] [address] 2020-02-05 2020-02-05 Patient Trupti Ahn Jatin 1.2.840.114 [id number] Univers 00:00:00 00:00:00 Outreach E Mcnally 350.1.13.10 i ty [id number] [address] 2020-01-28 2020-01-28 Patient Trupti Ahn Jatin 1.2.840.114 [id number] Univers 00:00:00 00:00:00 Outreach E Mcnally 350.1.13.10 i ty [place] [phone] [address] 2020-01-18 2020-01-18 Patient Jatin Douglas 1.2.840.114 [id number] Univers 00:00:00 00:00:00 Outreach Hugh Tejeda Mcnally 350.1.13.10 ity of [place] [phone] [address] 2020-01-08 2020-01-08 Patient Jatin oDuglas 1.2.840.114 [id number] Univers 00:00:00 00:00:00 Outreach Hugh Tejeda Mcnally 350.1.13.10 ity [place] [id number] [address] 2020-01-07 2020-01-07 Patient Trupti Ahn 1.2.840.114 [id number] Univers 00:00:00 00:00:00 Outreach E Mcnally 350.1.13.10 i ty [place] [id number] [address] 2019-12-22 2019-12-22 Patient Trupti Ahn 1.2.840.114 [id number] Univers 00:00:00 00:00:00 Outreach E Mcnally 350.1.13.10 i ty [place] [phone] [address] 2019-12-16 2019-12-16 Patient Trupti Ahn 1.2.840.114 [id number] Univers 00:00:00 00:00:00 Outreach E Mcnally 350.1.13.10 i ty [place] 4[place]2.[place] [id number] [address] 2019-12-11 2019-12-11 Patient Jatin Douglas 1.2.840.114 [id number] Univers 00:00:00 00:00:00 Outreach Hugh Tejeda Mcnally 350.1.13.10 it[place] 4[place] [phone] [address] 2019-12-10 2019-12-10 Patient Jatin Douglas 1.2.840.114 [id number] Univers 00:00:00 00:00:00 Outreach Hugh Tejeda Mcnally 350.1.13.10 ity of [place] [phone] [address] 2019-12-03 2019-12-03 Patient Jatin Douglas 1.2.840.114 [id number] Univers 00:00:00 00:00:00 Outreach Hugh Whitey 350.1.13.10 ity of [place]2.[place] [phone] [address] 2019-12-02 2019-12-02 Patient Trupti Ahn 1.2.840.114 [id number] Univers 00:00:00 00:00:00 Outreach Vee Mcnally 350.1.13.10 i ty [place] 4[place]2.7.2.[place] [phone] [address] 2019-12-01 2019-12-01 Patient Jatin Douglas 1.2.840.114 [id number] Univers 00:00:00 00:00:00 Outreach Hugh Tejeda Mcnally 350.1.13.10 ity of [place] 4[place]2.[place] [id number] [address] 2019-11-26 2019-11-26 Patient Jatin Douglas 1.2.840.114 [id number] Univers 00:00:00 00:00:00 Outreach Hugh Tejeda Mcnally 350.1.13.10 ity of [place] 4[place]2.[place] [phone] [address] 2019-11-25 2019-11-25 Patient Trupti Ahn 1.2.840.114 [id number] Univers 16:38:53 16:38:57 Outreach Vee Mcnally 350.1.13.10 i ty [place]2.[place] [id number] [address] 2019-11-25 2019-11-25 Outpatient [facility] [id number] Univers 12:00:00 12:00:00 [id number] ity of [facility] 2019-11-20 2019-11-20 Patient Trupti Ahn 1.2.840.114 [id number] Univers 00:00:00 00:00:00 Outreach E Mcnally 350.1.13.10 i ty [place] 4[place]2.7[place]2.[place] [id number] [address] 2019-11-16 2019-11-16 Orders Doctor ALPHONSE 1.2.840.114 [id number] Univers 00:00:00 00:00:00 Only Unassigned, HERNANDO 350.1.13.10 ity of [facility] 4.2.7.2.686 You as [phone] [address] 2019-11-11 2019-11-11 Patient Jatni Douglas 1.2.840.114 [id number] Univers 00:00:00 00:00:00 Outreach Hugh Tejeda Mcnally 350.1.13.10 ity [place] 4[place]2.[place] [phone] [address] 2019-11-03 2019-11-03 Patient Trupti Ahn 1.2.840.114 [id number] Univers 00:00:00 00:00:00 Outreach E Mcnally 350.1.13.10 i ty [place]2.[place] [phone] [address] 2019-11-02 2019-11-02 Patient Trupti Ahn 1.2.840.114 [id number] Univers 00:00:00 00:00:00 Outreach E Mcnally 350.1.13.10 i ty [place].2.[place] [id number] [address] 2019-10-30 2019-10-30 Patient Trupti Ahn 1.2.840.114 [id number] Univers 00:00:00 00:00:00 Outreach E Mcnally 350.1.13.10 i ty [place]2.[place] [phone] [address] 2019-10-29 2019-10-29 Hospital Devlin, Kaycee 1.2.994.414 [id number] Univers 11:46:00 23:59:00 Encounter Segun Maza 350.1.13.10 ity of [facility] 4.2.7.2.686 You as [phone] [facility] [address] 2019-10-29 2019-10-29 Outpatient R [facility] [id number] Univers 12:30:00 12:30:00 [id number] ity [facility] 2019-10-29 2019-10-29 Outpatient R CLAUS, [facility] [id number] Univers 12:30:00 12:30:00 SGEUN ity [facility] 2019-10-29 2019-10-29 Transition Jatin Navarrete 1.2.840.114 [id number] Univers 00:00:00 00:00:00 of Care Lucia Mcnally 350.1.13.10 it[place] of [place] [phone] [facility] [address] 2019-10-26 2019-10-28 [facility] 1.2.840. 114 [id number] Univers 20:13:39 12:05:00 Encounter Faustino Mason [id number] it[place] [phone] [facility] [address] 2019-10-28 2019-10-28 Telephone [facility] [id number] Univers 00:00:00 00:00:00 Mara Isaac [id number] [place] [phone] [place] dicglenna nal 059 [facility] 2019-10-27 2019-10-27 Telephone [facility] [id number] Univers 00:00:00 00:00:00 Grzegorz [employer] [facility] [id number] i ty of [place] 4.2.7.2.686 You as Professio [phone] [place] dical nal [address] [employer] 2019-10-19 2019-10-26 Telemedici [facility] 1.2.840.114 [id number] Univers 10:08:07 17:02:04 ne Visit Mara Isaac [id number] it[id number] [phone] [place] dical nal 059 [facility] 2019-10-26 2019-10-26 Health Coach Shaka, [facility] 1.2.8 40.114 [id number] Univers 14:57:39 15:12:39 Visit Mara Cross 350.1.13.10 it[place] [phone] [place] dical nal 353 [facility] 2019-10-26 2019-10-26 Outpatient O TAY, [facility] [id number] Univers 15:00:00 15:00:00 MARA [id number] ity o [facility] 2019-10-26 2019-10-26 Outpatient R [facility] [id number] Univers 11:15:00 11:15:00 BALJOSE ruizy o [facility] 2019-10-26 2019-10-26 Orders Doctor ALPHONSE 1.2.840.114 [id number] Univers 00:00:00 00:00:00 Only Unassigned, HERNANDO 350.1.13.10 ity of [place] [facility] 4.2.7.2.686 You as [phone] [address] 2019-10-19 2019-10-19 Outpatient O [facility] [id number] -[id number] Univers 14:40:00 14:40:00 MARA [id number] ity o [facility] 2019-10-19 2019-10-19 Outpatient O [facility] [id number] Univers 14:40:00 14:40:00 BALJOSE saray o [facility] 2019-10-19 2019-10-19 Telephone Tay, [facility] [id number] Univers 00:00:00 00:00:00 Mara Isaac 350.1.13.10 [place] [phone] La dical nal 059 [facility] 2019-10-12 2019-10-12 [facility] Renny Ashley 1.2.840.114 [id number] Univers 12:30:00 23:59:00 Segun Rey 350.1 .13.10 ity of [facility] 4.2.7.2.686 [facility] [phone] [facility] [address] 2019-10-12 2019-10-12 Outpatient [facility] [id number] -[id number] Univers 12:30:00 12:30:00 [id number] ity of [facility] 2019-10-12 2019-10-12 Outpatient R ASHLEY [facility] [id number] Univers 12:30:00 12:30:00 RENNY ity [facility] 2019-09-29 2019-10-01 Emergency Chong Brennan [facility] 1.2.840.1 14 [id number] Univers 16:30:29 18:09:[address] [facility] 350.1.13.10 ity [facility] 4.2.7.2.686 [facility] [phone] [facility] [address] ([facility]) 2019-09-29 2019-10-01 Outpatient X BABA [facility] MHS [id number] Univers 16:30:29 18:09:00 PRITESH urrutia o f [facility] 2019-09-29 2019-09-29 Hospital Igor Borrego [facility] 1.2.840.114 [id number] Univers 09:00:00 16:29:00 Encounter Marlin 350.1.13.10 ity [facility] 4.2.7.2.686 [facility] [phone] [facility] [address] 2019-09-29 2019-09-29 Outpatient IGOR BESS [facility] [id number] Univers 09:00:00 16:29:00 ity [facility] 2019-09-29 2019-09-29 Appointmen ELMO [facility] [id number] Univers 15:00:00 15:00:00 t; IGOR BORREGO M.D. Advanced ity of MITZI [facility] Lori Freeman Failure - Physic i [place] [facility] 2019-09-29 2019-09-29 Health Coach 1, Adc Lab [facility] 1.2.840.114 [id number] Univers 09:30:09 09:45:09 Visit Igor Borrego 350.1.13.10 ity of [place] 4.2.7.2.686 [place] [facility] [id number] [facility] [address] 2019-09-29 2019-09-29 Outpatient R IGOR BORREGO [facility] [id number] Univers 09:00:00 09:00:00 [id number] [facility]-09-28 2019-09-28 [facility] Segun Devlin 1. 2.840.114 [id number] Univers 12:30:00 23:59:00 Encounter Renny Ashley 350.1.13.10 ity [facility] 4.2.7.2.686 You as [phone] [facility] [address] 2019-09-28 2019-09-28 Ancillary Room, Maureen-Occup Therapy Tub Luda ie 1.2.840.114 [id number] Univers 16:08:34 16:38:34 Visit Renny Ashley 350.1.13.10 ity [facility] 4.2.7.2.686 You as [phone] [facility] [address] 2019-09-28 2019-09-28 Outpatient R [facility] [id number] -[id number] Univers 12:30:00 12:30:00 [id number] ity [facility] 2019-09-28 2019-09-28 [facility] [id number] Univers 12:30:00 12:30:00 SEGUN [facility] 2019-09-22 2019-09-22 Ancillary Room, Maureen-Occup Therapy Tub Luda ie 1.2.840.114 [id number] Univers 16:28:15 17:13:15 Visit Segun Devlin 350.1.1 3.10 ity [facility] 4.2.7.2.686 You as [phone] [address] 2019-09-21 2019-09-21 [facility] Kaycee Devlin [id number] Univers 12:30:00 23:59:00 Encounter Segun Maza 350.1.13.10 ity [facility] 4.2.7.2.686 You as [phone] [address] 2019-09-21 2019-09-21 Outpatient R [facility] [id number] -[id number] Univers 12:30:00 12:30:00 [id number] virgilio [facility] 2019-09-21 2019-09-21 Outpatient Hailey DEVLIN [facility] [id number] Univers 12:30:00 12:30:00 SEGUN virgilio [facility] 2019-09-21 2019-09-21 Outpatient Hailey DEVLIN [facility] [id number] Univers 08:45:00 08:45:00 SEGUN virgilio [facility] 2019-09-18 2019-09-18 Emergency X DOYLE, [facility] ERT [id number] Univers 17:58:06 20:49:00 GISSELLE virgilio [facility] 2019-09-18 2019-09-18 [facility] [id number] [id number] Univers 17:58:06 20:49:00 Gisselle Isaac 350.1.13.10 i [place] [id number] [facility] [address] 2019-09-12 2019-09-15 Inpatient X ABU [facility] [id number] Univers 09:17:22 13:30:00 SERGO renan o f [facility] 2019-09-12 2019-09-15 [facility] LealJakobip [facility] 1.2.840.1 14 [id number] Univers 09:17:22 13:30:00 Encounter Abu [facility] 350.1.13. 10 [place] [id number] [facility] [address] ([facility]) 2019-09-10 2019-09-10 Patient Jimy Trupti Steiner 1.2.840.114 [id number] Univers 00:00:00 00:00:00 Outreach E Mcnally 350.1.13.10 i [place] [id number] [facility] [address] 2019-09-08 2019-09-08 Transition Jatin Navarrete 1.2.840.114 [id number] Univers 00:00:00 00:00:00 of Care Lucia Mcnally 350.1.13.10 ity of [place] 4.2.7.2.686 Mariah hanson [phone] [place] [address] 2019-08-18 2019-09-07 Inpatient X [facility] [id number] Univers 14:20:52 14:10:00 [facility] 2019-08-18 2019-09-07 Hospital Shanae Barney [facility] 1.2.840.1 14 [id number] Univers 14:20:52 14:10:00 Encounter [facility] 350.1.13.10 ity [facility] [place] 4.2.7.2.[address] [facility] mon[facility] Boykin [phone] [address] (CLC) Results Test Description Test Time Test Comments Results Result Comments Source POCT GLUCOSE (AUTOMATED) 2020-11-09 16:51:02 Test Item Value Reference Range Interpretation Comme nts POCT GLU (test code = 6947483099) 177 mg/dL 70-110 H Lab Interpretation (test code = 95381-2) [facility]normal [facility]2020-[facility]-09 16:51:02 Test Item Value Reference Range Interpretation Comments POCT GLU (test code = 9622461720) 177 mg/dL 70-110 H Lab Interpretation (test code = Abnormal 66378-9) [facility] WITHOUT [id number] 12:33:06 Test Item Value Reference Range Interpretation Comments WBC (test code = 6690-2) See_Comment [A utomated message] The system [employer] generated this result transmit tennille reference range : 4.20 - 10.70 10*3/?L. The reference range was not used to interpret this result as normal/abnormal . RBC (test code = 789-8) See_Comment L [Au tomated message] The system [employer] generated this result transmit tennille reference range [...] 777-3) See_Comment [Au tomated message] The system [facility] generated this result transmit tennille reference range : 150 - 328 10*3/?L. The reference range was not used to interpret this result as normal/abnormal . MPV (test code = 12.5 fL 9.8-13.0 21919-8) RDW-CV (test code = 22.8 % 12.1-15.4 H 788-0) RDW-SD (test code = 64.1 fL 38.5-51.6 H 73942-0) NRBC x10^3 (test code = <0.01 See_Comment [Au tomated message] 0385566046) The system [facility] generated this result transmit tennille reference range : 10*3/?L. The reference range was not used to interpret this result as normal/abnormal . NRBC/100 WBC (test code See_Comment [Au tomated message] = 6104546688) The system [facility] generated this result transmit tennille reference range : 0.0 - 10.0 /100 WBC s. The reference r christine was not used to interpret this result as normal/abnormal . IPF % (test code = 5516502333) Lab Interpretation (test Abnormal code = 27611-1) [facility] WITHOUT [id number] 12:33:06 Test Item Value Reference Range Interpretation Comments WBC (test code = 6690-2) See_Comment [A utomated message] The system [facility] generated this result transmit tennille reference range : 4.20 - 10.70 10*3/?L. The reference range was not used to interpret this result as normal/abnormal . RBC (test code = 789-8) See_Comment L [Au tomated message] The system [facility] generated this result transmit tennille reference [...] 777-3) See_Comment [Au tomated message] The system [employer] generated this result transmit tennille reference range : 150 - 328 10*3/?L. The reference range was not used to interpret this result as normal/abnormal . MPV (test code = 12.5 fL 9.8-13.0 29333-5) RDW-CV (test code = 22.8 % 12.1-15.4 H 788-0) RDW-SD (test code = 64.1 fL 38.5-51.6 H 21591-0) NRBC x10^3 (test code = <0.01 See_Comment [Au tomated message] 6832763138) The system [employer] generated this result transmit tennille reference range : 10*3/?L. The reference range was not used to interpret this result as normal/abnormal . NRBC/100 WBC (test code See_Comment [Au tomated message] = 9166790525) The system [facility] generated this result transmit tennille reference range : 0.0 - 10.0 /100 WBC s. The reference r christine was not used to interpret this result as normal/abnormal . IPF % (test code = 2816886658) Lab Interpretation (test Abnormal code = 68241-0) [facility] 12:23:25 Test Item Value Reference Range Interpretation Comments MAGNESIUM (test code = 0699401308) 2.7 mg/dL 1.7-2.4 H Lab Interpretation (test code = Abnormal 55447-4) [facility] (NA, K, CL, CO2, GLUCOSE, BUN, CREATININE, CA)2020-11-09 12:23:25 Test Item Value Reference Range Interpretation Comments NA (test code = 146 mmol/L 135-145 H 0150813983) K (test code = 4.0 mmol/L 3.5-5.0 9709825602) CL (test code = 110 mmol/L 98-108 H 5627938129) CO2 TOTAL (test code = 31 mmol/L 23-31 7469927891) AGAP (test code = 2-16 2867578771) BUN (test code = 49 mg/dL 7-23 H 0725546701) GLUCOSE (test code = 114 mg/dL 70-110 H 7629173696) CREATININE (test code = 1.23 mg/dL 0.60-1.25 0773996165) CALCIUM (test code = 7.8 mg/dL 8.6-10.6 L 6477893751) eGFR (test code = mL/min/1.73m2 2111943729) JUAN LUIS (test code = JUAN LUIS) [...] tests). Lab Interpretation Abnormal (test code = 01646-6) [facility] METABOLIC PANEL (NA, K, CL, CO2, GLUCOSE, BUN, CREATININE, CA)2020-11-09 12:23:25 Test Item Value Reference Range Interpretation Comments NA (test code = 146 mmol/L 135-145 H 6567730383) K (test code = 4.0 mmol/L 3.5-5.0 8269708358) CL (test code = 110 mmol/L 98-108 H 4386810932) CO2 TOTAL (test code = 31 mmol/L 23-31 2666263713) AGAP (test code = 2-16 2694212203) BUN (test code = 49 mg/dL 7-23 H 3949411520) GLUCOSE (test code = 114 mg/dL 70-110 H 5883390287) CREATININE (test code = 1.23 mg/dL 0.60-1.25 6966118051) CALCIUM (test code = 7.8 mg/dL 8.6-10.6 L 4241798601) eGFR (test code = mL/min/1.73m2 8335035997) JUAN LUIS (test code = JUAN LUIS) [...] tests). Lab Interpretation Abnormal (test code = 91442-6) [facility]21-[facility]28 12:23:25 Test Item Value Reference Range Interpretation Comments MAGNESIUM (test code = 6661306762) 2.7 mg/dL 1.7-2.4 H Lab Interpretation (test code = Abnormal 79561-2) [facility] GLUCOSE (AUTOMATED)2020-11-09 10:56:45 Test Item Value Reference Range Interpretation Comments POCT GLU (test code = 0418190075) 129 mg/dL 70-110 H Lab Interpretation (test code = Abnormal 40654-4) [facility] GLUCOSE (AUTOMATED)2020-11-09 05:24:07 Test Item Value Reference Range Interpretation Comments POCT GLU (test code = 2986815152) 203 mg/dL 70-110 H Lab Interpretation (test code = Abnormal 68986-1) [facility] GLUCOSE (AUTOMATED)2020-11-08 23:23:05 Test Item Value Reference Range Interpretation Comments POCT GLU (test code = 2372218963) 238 mg/dL 70-110 H Lab Interpretation (test code = Abnormal 16225-5) [facility] GLUCOSE (AUTOMATED)2020-11-08 15:48:22 Test Item Value Reference Range Interpretation Comments POCT GLU (test code = 7865965033) 193 mg/dL 70-110 H Lab Interpretation (test code = Abnormal 60821-2) [facility] THORAX W [id number] 14:45:56 1. 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 [facility], Radiant Results Inft User - 11/08/2020 9:47 AM CDTEXAM: CT CHEST, ABDOMEN ANDPELVIS WITHOUT CONTRAST, CONSULTATION OUTSIDEHISTORY: 65 years -old Male with uti - shock COMPARISON: None, correlation with CT abdomen pelvis with and withoutcontrast from 09/20/2017TECHNIQUE: CT examination acquisition dated 10/22/2020 from [facility], labeled with the patients name, was submitted [...] reviewed this study and agree with the abovereport.[facility] THORAX W [id number] 14:45:56 1. 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 [facility], Radiant Results Inft User - 11/08/2020 9:47 AM CDTEXAM: CT CHEST, ABDOMEN AND PELVIS WITHOUT CONTRAST, CONSULTATION OUTSIDEHISTORY: 65 years -old Male with uti - shock COMPARISON: None, correlation with CT abdomen pelvis with and withoutcontrast from 09/20/2017TECHNIQUE: CT examination acquisition dated 10/22/2020 from [facility], labeled with the patients name, was submitted [...] reviewed this study and agree with the abovereport.[facility]2020-11-08 11:15:50 Test Item Value Reference Range Interpretation Comments POCT GLU (test code = 5475413679) 126 mg/dL 70-110 H Lab Interpretation (test code = Abnormal 14572-5) [facility] MET[facility]OLIC [facility] (NA, K, CL, CO2, GLUCOSE, BUN, CREATININE, CA)2020-11-08 10:22:09 Test Item Value Reference Range Interpretation Comments NA (test code = 147 mmol/L 135-145 H 0669126331) K (test code = 4.1 mmol/L 3.5-5.0 8920322552) CL (test code = 113 mmol/L 98-108 H 9421846919) CO2 TOTAL (test code = 30 mmol/L 23-31 1813706845) AGAP (test code = 2-16 4768753773) BUN (test code = 43 mg/dL 7-23 H 7495218471) GLUCOSE (test code = 113 mg/dL 70-110 H 8044282455) CREATININE (test code = 1.17 mg/dL 0.60-1.25 7863144219) CALCIUM (test code = 7.6 mg/dL 8.6-10.6 L 8644818934) eGFR (test code = mL/min/1.73m2 1405340485) JUAN LUIS (test code = JUAN LUIS) [...] tests). Lab Interpretation Abnormal (test code = 92622-1) [facility] WITH [id number] 10:16:46 Test Item Value Reference Range Interpretation [...] (test code = 65.6 fL 38.5-51.6 H 43800-2) RDW-CV (test code = 23.0 % 12.1-15.4 H 788-0) PLT (test code = See_Comment [Automated 777-3) message] The sy stem which generated this result transmitted reference range : 150 - 328 10*3/ ?L. The reference r christine was not used to interpret this result as normal/abnormal . MPV (test code = 13.3 fL 9.8-13.0 H 79730-6) NRBC/100 WBC (test See_Comment [Automat ed code = 9443031783) message] The system which generated this result transmitted reference range : 0.0 - 10.0 /100 WBCs. The refer ence range was not u sed to interpret th is result as normal/abnormal . NRBC x10^3 (test code <0.01 See_Comment [Auto mated = 5912931561) message] The s ystem which generated this result transmitted reference range : 10*3/?L. The reference range was not used to interpret this result as normal/abnormal . GRAN MAT (NEUT) % 71.8 % (test code = 654-8) IMM GRAN % (test code 0.30 % = 0555369579) LYMPH % (test code = 17.7 % 736-9) MONO % (test code = 7.2 % 5905-5) EOS % (test code = 2.5 % 713-8) BASO % (test code = 0.5 % 706-2) GRAN MAT x10^3(ANC) 4.57 10*3/uL 1.99-6.95 (test code = 4690116646) IMM GRAN x10^3 (test <0.03 0.00-0.06 code = 1324490535) LYMPH x10^3 (test code 1.13 10*3/uL 1.09-3.23 = 731-0) MONO x10^3 (test code 0.46 10*3/uL 0.36-1.02 = 742-7) EOS x10^3 (test code = 0.16 10*3/uL 0.06-0.53 711-2) BASO x10^3 (test code 0.03 10*3/uL 0.01-0.09 = 704-7) Lab Interpretation Abnormal (test code = 46751-0) [facility] WITH [id number] 10:16:46 Test Item Value Reference Range Interpretation [...] (test code = 65.6 fL 38.5-51.6 H 36639-5) RDW-CV (test code = 23.0 % 12.1-15.4 H 788-0) PLT (test code = See_Comment [Automated 777-3) message] The sy stem which generated this result transmitted reference range : 150 - 328 10*3/ ?L. The reference r christine was not used to interpret this result as normal/abnormal . MPV (test code = 13.3 fL 9.8-13.0 H 65412-6) NRBC/100 WBC (test See_Comment [Automat ed code = 8591082002) message] The system which generated this result transmitted reference range : 0.0 - 10.0 /100 WBCs. The refer ence range was not u sed to interpret th is result as normal/abnormal . NRBC x10^3 (test code <0.01 See_Comment [Auto mated = 7437909663) message] The s ystem which generated this result transmitted reference range : 10*3/?L. The reference range was not used to interpret this result as normal/abnormal . GRAN MAT (NEUT) % 71.8 % (test code = 770-8) IMM GRAN % (test code 0.30 % = 8057490317) LYMPH % (test code = 17.7 % 736-9) MONO % (test code = 7.2 % 5905-5) EOS % (test code = 2.5 % 713-8) BASO % (test code = 0.5 % 706-2) GRAN MAT x10^3(ANC) 4.57 10*3/uL 1.99-6.95 (test code = 4200520532) IMM GRAN x10^3 (test <0.03 0.00-0.06 code = 0019944028) LYMPH x10^3 (test code 1.13 10*3/uL 1.09-3.23 = 731-0) MONO x10^3 (test code 0.46 10*3/uL 0.36-1.02 = 742-7) EOS x10^3 (test code = 0.16 10*3/uL 0.06-0.53 711-2) BASO x10^3 (test code 0.03 10*3/uL 0.01-0.09 = 704-7) Lab Interpretation Abnormal (test code = 47176-0) [facility] GLUCOSE (AUTOMATED)2020-11-08 05:43:41 Test Item Value Reference Range Interpretation Comments POCT GLU (test code = 8976257025) 123 mg/dL 70-110 H Lab Interpretation (test code = Abnormal 97245-4) [facility] GLUCOSE (AUTOMATED)2020-11-07 22:02:56 Test Item Value Reference Range Interpretation Comments POCT GLU (test code = 5059150756) 120 mg/dL 70-110 H Lab Interpretation (test code = Abnormal 46607-6) [facility] [id number] 15:30:56 Nonobstructive bowel gas pattern. Mild stool [...] the colon.Preliminary Report Dictated by Resident: Emelia DawoodI reviewed thisstudy and agree.IJigar MD., have reviewed this study and agree with theabove report. [facility] CHEST 1 [id number] 14:18:52EXAM: XR CHEST 1 VW HISTORY: fever [...] skin folds on the right obscure the lungbases.[facility] CHEST 1 [id number] 14:18:52 EXAM: XR CHEST 1 VW HISTORY: [...] skin folds on the right obscure the lungbases.[facility]) 2020-11-07 13:14:41 Test Item Value Reference Range Interpretation Comments POCT GLU (test code = 1188424547) 88 mg/dL 70-110 Lab Interpretation (test code = Normal 99104-5) [facility] MET[facility]OLIC PAN[facility] (NA, K, CL, CO2, GLUCOSE, BUN, CREATININE, CA)2020-11-07 10:43:49 Test Item Value Reference Range Interpretation Comments NA (test code = 148 mmol/L 135-145 H 2337936335) K (test code = 4.1 mmol/L 3.5-5.0 9632457970) CL (test code = 113 mmol/L 98-108 H 0488557886) CO2 TOTAL (test code = 35 mmol/L 23-31 H 4848114531) AGAP (test code = <1 2-16 L 4845959880) BUN (test code = 45 mg/dL 7-23 H 5598245872) GLUCOSE (test code = 63 mg/dL 70-110 L 8536219929) CREATININE (test code = 1.33 mg/dL 0.60-1.25 H 3674412103) CALCIUM (test code = 8.0 mg/dL 8.6-10.6 L 2104072520) eGFR (test code = mL/min/1.73m2 5214630671) JUAN LUIS (test code = JUAN LUIS) [...] tests). Lab Interpretation Abnormal (test code = 21348-8) [facility] 10:42:07 Test Item Value Reference Range Interpretation Comments MAGNESIUM (test code = 2848416102) 2.7 mg/dL 1.7-2.4 H Lab Interpretation (test code = Abnormal 88974-4) [facility]2020-11-07 10:27:42 Test Item Value Reference Range Interpretation Comments POCT GLU (test code = 3865895052) 80 mg/dL 70-110 Lab Interpretation (test code = Normal 70704-5) [facility] WITHOUT [id number] 10:22:42 Test Item Value Reference Range Interpretation Comments WBC (test code = 6690-2) See_Comment [A utomated message] The system [employer] generated this result transmit tennille reference range : 4.20 - 10.70 10*3/?L. The reference range was not used to interpret this result as normal/abnormal . RBC (test code = 789-8) See_Comment L [Au tomated message] The system [employer] generated this result transmit tennille reference range [...] 777-3) See_Comment [Au tomated message] The system [employer] generated this result transmit tennille reference range : 150 - 328 10*3/?L. The reference range was not used to interpret this result as normal/abnormal . MPV (test code = 12.7 fL 9.8-13.0 86645-2) RDW-CV (test code = 23.8 % 12.1-15.4 H 788-0) RDW-SD (test code = 65.6 fL 38.5-51.6 H 36622-9) NRBC x10^3 (test code = <0.01 See_Comment [Au tomated message] 2586264101) The system [employer] generated this result transmit tennille reference range : 10*3/?L. The reference range was not used to interpret this result as normal/abnormal . NRBC/100 WBC (test code See_Comment [Au tomated message] = 6264587326) The system [employer] generated this result transmit tennille reference range : 0.0 - 10.0 /100 WBC s. The reference r christine was not used to interpret this result as normal/abnormal . IPF % (test code = 7706902049) Lab Interpretation (test Abnormal code = 70872-9) [facility] GLUCOSE (AUTOMATED)2020-11-07 05:14:24 Test Item Value Reference Range Interpretation Comments POCT GLU (test code = 1429788347) 87 mg/dL 70-110 Lab Interpretation (test code = Normal 85950-0) [facility] GLUCOSE (AUTOMATED)2020-11-06 22:50:06 Test Item Value Reference Range Interpretation Comments POCT GLU (test code = 1431769110) 80 mg/dL 70-110 Lab Interpretation (test code = Normal 34685-1) [facility] GLUCOSE (AUTOMATED)2020-11-06 16:50:42 Test Item Value Reference Range Interpretation Comments POCT GLU (test code = 6428171443) 146 mg/dL 70-110 H Lab Interpretation (test code = Abnormal 45246-4) [facility] GLUCOSE (AUTOMATED)2020-11-06 16:50:42 Test Item Value Reference Range Interpretation Comments POCT GLU (test code = 2579003567) 146 mg/dL 70-110 H Lab Interpretation (test code = Abnormal 95546-4) [facility] [id number] 12:14:44 Test Item Value Reference Range Interpretation Comments URINE CULTURE (test No aerobic growth (< code = 630-4) 1000 CFU/mL) [facility] [id number] 12:14:44 Test Item Value Reference Range Interpretation Comments URINE CULTURE (test No aerobic growth (< code = 630-4) 1000 CFU/mL) [facility] [id number] 12:14:44 Test Item Value Reference Range Interpretation Comments URINE CULTURE (test No aerobic growth (< code = 630-4) 1000 CFU/mL) [facility] 11[facility]:12 Test Item Value Reference Range Interpretation Comments MAGNESIUM (test code = 7126173678) 2.6 mg/dL 1.7-2.4 H Lab Interpretation (test code = Abnormal 52753-7) [facility] (NA, K, CL, CO2, GLUCOSE, BUN, CREATININE, CA)2020-11-06 11:42:12 Test Item Value Reference Range Interpretation Comments NA (test code = 146 mmol/L 135-145 H 8633968067) K (test code = 4.0 mmol/L 3.5-5.0 9661464201) CL (test code = 112 mmol/L 98-108 H 5877603560) CO2 TOTAL (test code = 32 mmol/L 23-31 H 9944758494) AGAP (test code = 2-16 3176461127) BUN (test code = 47 mg/dL 7-23 H 7892501082) GLUCOSE (test code = 176 mg/dL 70-110 H 3142326954) CREATININE (test code = 1.33 mg/dL 0.60-1.25 H 3976515325) CALCIUM (test code = 7.9 mg/dL 8.6-10.6 L 4040616212) eGFR (test code = mL/min/1.73m2 7687477711) JUAN LUIS (test code = JUAN LUIS) [...] tests). Lab Interpretation Abnormal (test code = 44466-5) [facility] METABOLIC PANEL (NA, K, CL, CO2, GLUCOSE, BUN, CREATININE, CA)2020-11-06 11:42:12 Test Item Value Reference Range Interpretation Comments NA (test code = 146 mmol/L 135-145 H 6443265815) K (test code = 4.0 mmol/L 3.5-5.0 4294721774) CL (test code = 112 mmol/L 98-108 H 4289282082) CO2 TOTAL (test code = 32 mmol/L 23-31 H 4228842583) AGAP (test code = 2-16 8684425838) BUN (test code = 47 mg/dL 7-23 H 8022793865) GLUCOSE (test code = 176 mg/dL 70-110 H 7880860421) CREATININE (test code = 1.33 mg/dL 0.60-1.25 H 4324745242) CALCIUM (test code = 7.9 mg/dL 8.6-10.6 L 5544011188) eGFR (test code = mL/min/1.73m2 8672865598) JUAN LUIS (test code = JUAN LUIS) [...] tests). Lab Interpretation Abnormal (test code = 77734-7) [facility] 11:42:12 Test Item Value Reference Range Interpretation Comments MAGNESIUM (test code = 2946274840) 2.6 mg/dL 1.7-2.4 H Lab Interpretation (test code = Abnormal 26895-9) [facility] [id number] 11:35:08 Test Item Value Reference Range Interpretation Comments WBC (test code = 6690-2) See_Comment [A utomated message] The system [employer] generated this result transmit tennille reference range : 4.20 - 10.70 10*3/?L. The reference range was not used to interpret this result as normal/abnormal . RBC (test code = 789-8) See_Comment L [Au tomated message] The system [employer] generated this result transmit tennille reference range [...] 777-3) See_Comment [Au tomated message] The system [employer] generated this result transmit tennille reference range : 150 - 328 10*3/?L. The reference range was not used to interpret this result as normal/abnormal . MPV (test code = 13.6 fL 9.8-13.0 H 39417-0) RDW-CV (test code = 23.8 % 12.1-15.4 H 788-0) RDW-SD (test code = 66.0 fL 38.5-51.6 H 77506-5) NRBC x10^3 (test code = <0.01 See_Comment [Au tomated message] 1455037115) The system [employer] generated this result transmit tennille reference range : 10*3/?L. The reference range was not used to interpret this result as normal/abnormal . NRBC/100 WBC (test code See_Comment [Au tomated message] = 3447765742) The system [facility] generated this result transmit tennille reference range : 0.0 - 10.0 /100 WBC s. The reference r christine was not used to interpret this result as normal/abnormal . IPF % (test code = 9147067407) Lab Interpretation (test Abnormal code = 98067-7) [facility] WITHOUT [id number] 11:35:08 Test Item Value Reference Range Interpretation Comments WBC (test code = 6690-2) See_Comment [A utomated message] The system [employer] generated this result transmit tennille reference range : 4.20 - 10.70 10*3/?L. The reference range was not used to interpret this result as normal/abnormal . RBC (test code = 789-8) See_Comment L [Au tomated message] The system [employer] generated this result transmit tennille reference range [...] 777-3) See_Comment [Au tomated message] The system [employer] generated this result transmit tennille reference range : 150 - 328 10*3/?L. The reference range was not used to interpret this result as normal/abnormal . MPV (test code = 13.6 fL 9.8-13.0 H 36290-5) RDW-CV (test code = 23.8 % 12.1-15.4 H 788-0) RDW-SD (test code = 66.0 fL 38.5-51.6 H 18066-1) NRBC x10^3 (test code = <0.01 See_Comment [Au tomated message] 0931606547) The system [employer] generated this result transmit tennille reference range : 10*3/?L. The reference range was not used to interpret this result as normal/abnormal . NRBC/100 WBC (test code See_Comment [Au tomated message] = 6489675396) The system [facility] generated this result transmit tennille reference range : 0.0 - 10.0 /100 WBC s. The reference r christine was not used to interpret this result as normal/abnormal . IPF % (test code = 7763167173) Lab Interpretation (test Abnormal code = 06936-3) [facility]2020-11-06 11:12:42 Test Item Value Reference Range Interpretation Comments POCT GLU (test code = 1996960111) 206 mg/dL 70-110 H Lab Interpretation (test code = Abnormal 43218-4) [facility], [id number] 07:41:26 Test Item Value Reference Range Interpretation Comments VIT B6 (test code = 10 nmol/L 20.0-125.0 L INTERPRE TIVE 08830-7) INFORMATION: Vi tamin B6 (Pyridoxal 5-Phosphate) Py ridoxal 5'-phosphate me asured in a specimen collected follo wing an 8-hour or overn ight fast accurately indicates vitam in B6 nutritional sta tus. Non-fasting spe cimen concentration r eflects recent vitamin intake. This test was developed and i ts performance characteristics determined by [employer]. I t has not been cleare d or approved by the [place] Food and Drug Administration. This test was perfor med in a CLIA certifie d laboratory and is intended for cl inical purposes.Perfor med By: [employer] [address] [place], [place] [address]Cyozwgnqiy Director: Dori Crum MD Lab Interpretation Abnormal (test code = 50187-1) [facility], [id number] 07:41:26 Test Item Value Reference Range Interpretation Comments VIT B6 (test code = 10 nmol/L 20.0-125.0 L INTERPRE TIVE 74679-7) INFORMATION: Vi tamin B6 (Pyridoxal 5-Phosphate) Py ridoxal 5'-phosphate me asured in a specimen collected follo wing an 8-hour or overn ight fast accurately indicates vitam in B6 nutritional sta tus. Non-fasting spe cimen concentration r eflects recent vitamin intake. This test was developed and i ts performance characteristics determined by [employer]. I t has not been cleare d or approved by the [place] Food and Drug Administration. This test was perfor med in a CLIA certifie d laboratory and is intended for cl inical purposes.Perfor med By: [employer] [place], [place] [address]Cqpdcahkwf Director: Dori Crum MD Lab Interpretation Abnormal (test code = 38565-5) [facility], [id number] 07:41:26 Test Item Value Reference Range Interpretation Comments VIT B6 (test code = 10 nmol/L 20.0-125.0 L INTERPRE TIVE 19316-0) INFORMATION: Vi tamin B6 (Pyridoxal 5-Phosphate) Py [...] intended for cl inical purposes.Perfor med By: [facility] [address] [place], [place] [address]Safipkwlaa Director: Dori Crum MD Lab Interpretation Abnormal (test code = 00412-3) [facility]2020-11-06 05:08:09 Test Item Value Reference Range Interpretation Comments POCT GLU (test code = 9590985268) 175 mg/dL 70-110 H Lab Interpretation (test code = Abnormal 81206-8) [facility]1 (THIAMINE), WHOLE [id number] 00:12:20 Test Item Value Reference Range Interpretation Comments Vitamin B1, Whole 104 nmol/L 70-180 INTERPRETI VE INFORMATION: Blood (test code = Vitamin B 1, Whole Blood 90977-4) This assay gal ures the concentration o [...] is intended for clinical purposes.Perfor med By: [facility] [address] [place], [place] [address]Y aboratory Director: Dori Crum MD [facility] (THIAMINE), WHOLE [id number] 00:12:20 Test Item Value Reference Range Interpretation Comments Vitamin B1, Whole 104 nmol/L 70-180 INTERPRETI VE INFORMATION: Blood (test code = Vitamin B 1, Whole Blood 54788-1) This assay gal ures the concentration o [...] is intended for clinical purposes.Perfor med By: [facility] [address] [address] aboratory Director: Dori Crum MD [facility] (THIAMINE), WHOLE [id number] 00:12:20 Test Item Value Reference Range Interpretation Comments Vitamin B1, Whole 104 nmol/L 70-180 INTERPRETI VE INFORMATION: Blood (test code = Vitamin B 1, Whole Blood 65069-0) This assay gal ures the concentration o [...] is intended for clinical purposes.Perfor med By: [facility] [address] [address] aboratory Director: Dori Crum MD [facility]2020-11-05 18:42:54 Test Item Value Reference Range Interpretation Comments POCT GLU (test code = 0561634104) 139 mg/dL 70-110 H Lab Interpretation (test code = Abnormal 95109-2) [facility] [id number] 12:13:36 Test Item Value Reference Range Interpretation Comments CSF CULTURE (test No organisms isolated code = 606-4) Gram stain (test code Occasional (Rare) = 664-3) Mononuclear cells [facility] [id number] 12:13:36 Test Item Value Reference Range Interpretation Comments CSF CULTURE (test No organisms isolated code = 606-4) Gram stain (test code Occasional (Rare) = 664-3) Mononuclear cells [facility] [id number] 12:13:36 Test Item Value Reference Range Interpretation Comments CSF CULTURE (test No organisms isolated code = 606-4) Gram stain (test code Occasional (Rare) = 664-3) Mononuclear cells [facility]2020-11-05 11:19:24 Test Item Value Reference Range Interpretation Comments POCT GLU (test code = 2238626693) 186 mg/dL 70-110 H Lab Interpretation (test code = Abnormal 24639-3) [facility] METABOLIC PANEL (NA, K, CL, CO2, GLUCOSE, BUN, CREATININE, CA)2020-11-05 10:23:43 Test Item Value Reference Range Interpretation Comments NA (test code = 147 mmol/L 135-145 H 5185222330) K (test code = 3.9 mmol/L 3.5-5.0 3754164479) CL (test code = 115 mmol/L 98-108 H 1355767736) CO2 TOTAL (test code = 29 mmol/L 23-31 9983410088) AGAP (test code = 2-16 7614690248) BUN (test code = 47 mg/dL 7-23 H 5274468802) GLUCOSE (test code = 157 mg/dL 70-110 H 4065670351) CREATININE (test code = 1.35 mg/dL 0.60-1.25 H 0728091083) CALCIUM (test code = 8.0 mg/dL 8.6-10.6 L 5873017128) eGFR (test code = mL/min/1.73m2 2678214415) JUAN LUIS (test code = JUAN LUIS) [...] tests). Lab Interpretation Abnormal (test code = 26140-6) [facility] 10:23:43 Test Item Value Reference Range Interpretation Comments MAGNESIUM (test code = 3466720397) 2.7 mg/dL 1.7-2.4 H Lab Interpretation (test code = Abnormal 55630-1) [facility] WITHOUT [id number] 09:54:56 Test Item Value Reference Range Interpretation Comments WBC (test code = 6690-2) See_Comment H [A utomated message] The system [employer] generated this result transmit tennille reference range : 4.20 - 10.70 10*3/?L. The reference range was not used to interpret this result as normal/abnormal . RBC (test code = 789-8) See_Comment L [Au tomated message] The system [employer] generated this result transmit tennille reference range [...] 777-3) See_Comment [Au tomated message] The system [employer] generated this result transmit tennille reference range : 150 - 328 10*3/?L. The reference range was not used to interpret this result as normal/abnormal . MPV (test code = 12.5 fL 9.8-13.0 25792-7) RDW-CV (test code = 23.9 % 12.1-15.4 H 788-0) RDW-SD (test code = 66.3 fL 38.5-51.6 H 34404-3) NRBC x10^3 (test code = <0.01 See_Comment [Au tomated message] 4800833920) The system [employer] generated this result transmit tennille reference range : 10*3/?L. The reference range was not used to interpret this result as normal/abnormal . NRBC/100 WBC (test code See_Comment [Au tomated message] = 4322405030) The system [employer] generated this result transmit tennille reference range : 0.0 - 10.0 /100 WBC s. The reference r christine was not used to interpret this result as normal/abnormal . IPF % (test code = 9227832435) Lab Interpretation (test Abnormal code = 77724-9) [facility]2020-11-05 04:55:22 Test Item Value Reference Range Interpretation Comments POCT GLU (test code = 8643961850) 112 mg/dL 70-110 H Lab Interpretation (test code = Abnormal 33223-7) [facility]RO[facility] PEROXIDASE (TPO) [id number] 23:58:26 Test Item Value Reference Interpretation Comments Range TPO Ab IgG (test See_Comment [Automated code = 1845061177) message] The system which generated this result [...] Graves'disease. Lab Interpretation Normal (test code = 84410-1) [facility] (TPO) [id number] 23:58:26 Test Item Value Reference Interpretation Comments Range TPO Ab IgG (test See_Comment [Automated code = 6008117500) message] The system which generated this result [...] Graves'disease. Lab Interpretation Normal (test code = 37851-0) [facility] (TPO) [id number] 23:58:26 Test Item Value Reference Interpretation Comments Range TPO Ab IgG (test See_Comment [Automated code = 4122056500) message] The system which generated this result [...] Graves'disease. Lab Interpretation Normal (test code = 33572-5) [facility]2020-11-04 22:59:44 Test Item Value Reference Range Interpretation Comments POCT GLU (test code = 5512456133) 89 mg/dL 70-110 Lab Interpretation (test code = Normal 73123-8) [facility] [id number] 22:07:20 The contrast material is identified in [...] have reviewed thisstudy and agree withthe above report.[facility]XR [id number] 22:07:20 The contrast material is identified in [...] spine spondylotic changes. Soft tissues are unremarkable. [facility], Radiant Results Inft User - 11/04/2020 [...] have reviewed thisstudy and agree withthe above report.[facility] AustinXR [id number] 22:07:20 The contrast material is identified in [...] spine spondylotic changes. Soft tissues are unremarkable. [facility], Radiant Results Inft User - 11/04/2020 5:08 [...] have reviewed thisstudy and agree withthe above report.[facility]2020-11-04 16:52:36 Test Item Value Reference Range Interpretation Comments POCT GLU (test code = 1649866527) 134 mg/dL 70-110 H Lab Interpretation (test code = Abnormal 88559-8) [facility] AustinPROTHROMBIN [facility] / [id number] 16:29:11 Test Item Value Reference Range Interpretation Comments PROTIME PATIENT (test See_Comment H [Auto mated message] code = 5964-2) The system [employer] generated this result transmitted ref erence range: 10.1 - 1 2.6 Seconds. The reference range was not used to int erpret this result as normal/abnormal . INR (test code = 6301-6) Nor mal INR <1.1; Warfarin Therap eutic range 2.0 to 3. 0 or 2.5 to 3.5, dep ending upon the indica tions. Lab Interpretation (test Abnormal code = 69869-0) [facility] AustinPROTHROMBIN [facility] / [id number] 16:29:11 Test Item Value Reference Range Interpretation Comments PROTIME PATIENT (test See_Comment H [Auto mated message] code = 5964-2) The system [employer] generated this result transmitted ref erence range: 10.1 - 1 2.6 Seconds. The reference range was not used to int erpret this result as normal/abnormal . INR (test code = 6301-6) Nor mal INR <1.1; Warfarin Therap eutic range 2.0 to 3. 0 or 2.5 to 3.5, dep ending upon the indica tions. Lab Interpretation (test Abnormal code = 19499-2) [facility] AustinPROTHROMBIN TIME / [id number] 16:29:11 Test Item Value Reference Range Interpretation Comments PROTIME PATIENT (test See_Comment H [Auto mated message] code = 5964-2) The system [employer] generated this result transmitted ref erence range: 10.1 - 1 2.6 Seconds. The reference range was not used to int erpret this result as normal/abnormal . INR (test code = 6301-6) Nor mal INR <1.1; Warfarin Therap eutic range 2.0 to 3. 0 or 2.5 to 3.5, dep ending upon the indica tions. Lab Interpretation (test Abnormal code = 10286-1) [facility]2020-11-04 15:23:28 Test Item Value Reference Range Interpretation Comments POCT GLU (test code = 8923660966) 144 mg/dL 70-110 H Lab Interpretation (test code = Abnormal 67757-1) [facility] METABOLIC PANEL (NA, K, CL, CO2, GLUCOSE, BUN, CREATININE, CA)2020-11-04 10:53:10 Test Item Value Reference Range Interpretation Comments NA (test code = 151 mmol/L 135-145 H 4635710109) K (test code = 3.8 mmol/L 3.5-5.0 0289873591) CL (test code = 119 mmol/L 98-108 H 1949082678) CO2 TOTAL (test code = 27 mmol/L 23-31 4901157725) AGAP (test code = 2-16 2253609728) BUN (test code = 48 mg/dL 7-23 H 8198254998) GLUCOSE (test code = 131 mg/dL 70-110 H 8466106203) CREATININE (test code = 1.36 mg/dL 0.60-1.25 H 7942627486) CALCIUM (test code = 8.1 mg/dL 8.6-10.6 L 8954934531) eGFR (test code = mL/min/1.73m2 6861503677) JUAN LUIS (test code = JUAN LUIS) [...] tests). Lab Interpretation Abnormal (test code = 09848-2) [facility] 10:48:27 Test Item Value Reference Range Interpretation Comments MAGNESIUM (test code = 0274638229) 2.6 mg/dL 1.7-2.4 H Lab Interpretation (test code = Abnormal 36497-8) [facility] AustinCBC WITHOUT [id number] 10:27:45 Test Item Value Reference Range Interpretation Comments WBC (test code = See_Comment H [Automated message] 6690-2) The system [employer] generated this result transmitted ref erence range: 4.20 - 1 0.70 10*3/?L. The reference range was not used to int erpret this result as normal/abnormal . RBC (test code = 789-8) See_Comment L [Au tomated message] The system [employer] generated this result transmitted ref erence range: [...] 777-3) See_Comment [Au tomated message] The system [employer] generated this result transmitted ref erence range: 150 - 32 8 10*3/?L. The reference range was not used to int erpret this result as normal/abnormal . MPV (test code = Not Measure d 65510-1) RDW-CV (test code = 24.3 % 12.1-15.4 H 788-0) RDW-SD (test code = 68.2 fL 38.5-51.6 H 41687-5) NRBC x10^3 (test code = See_Comment [Au tomated message] 8155987228) The system [employer] generated this result transmitted ref erence range: 10*3/?L. The reference range was not used to int erpret this result as normal/abnormal . NRBC/100 WBC (test code See_Comment [Au tomated message] = 0547418086) The system [employer] generated this result transmitted ref erence range: 0.0 - 10 .0 /100 WBCs. The reference range was not used to int erpret this result as normal/abnormal . IPF % (test code = 10.2 % 1.2-10.7 Platelet count 2573905869) measured by fluorescence me thod. Lab Interpretation Abnormal (test code = 25687-1) [facility]2020-11-03 16:55:39 Test Item Value Reference Range Interpretation Comments POCT GLU (test code = 7417560222) 123 mg/dL 70-110 H Lab Interpretation (test code = Abnormal 00208-0) [facility] METABOLIC PANEL (NA, K, CL, CO2, GLUCOSE, BUN, CREATININE, CA)2020-11-03 13:46:00 Test Item Value Reference Range Interpretation Comments NA (test code = 148 mmol/L 135-145 H 6492428887) K (test code = 4.7 mmol/L 3.5-5.0 5367293087) CL (test code = 120 mmol/L 98-108 H 7410140533) CO2 TOTAL (test code = 26 mmol/L 23-31 9786406858) AGAP (test code = 2-16 9541272950) BUN (test code = 47 mg/dL 7-23 H 6157918291) GLUCOSE (test code = 176 mg/dL 70-110 H 6521105024) CREATININE (test code = 1.35 mg/dL 0.60-1.25 H 2465738649) CALCIUM (test code = 8.0 mg/dL 8.6-10.6 L 0160802816) eGFR (test code = mL/min/1.73m2 2876979525) JUAN LUIS (test code = JUAN LUIS) [...] tests). Lab Interpretation Abnormal (test code = 85366-8) [facility] 13:34:53 Test Item Value Reference Range Interpretation Comments MAGNESIUM (test code = 8372220554) 2.8 mg/dL 1.7-2.4 H Lab Interpretation (test code = Abnormal 88049-2) [facility]2020-11-03 12:57:44 Test Item Value Reference Range Interpretation Comments POCT GLU (test code = 8892856755) 190 mg/dL 70-110 H Lab Interpretation (test code = Abnormal 92873-6) [facility] WITH [id number] 11:16:10 Test Item Value Reference Range Interpretation [...] (test code = 62.2 fL 38.5-51.6 H 85133-8) RDW-CV (test code = 23.3 % 12.1-15.4 H 788-0) PLT (test code = See_Comment [Automated 777-3) message] The sy stem which generated this result transmitted reference range : 150 - 328 10*3/ ?L. The reference r christine was not used to interpret this result as normal/abnormal . MPV (test code = Not Measure d 13437-4) IPF % (test code = 8.2 % 1.2-10.7 Platelet count 1867308193) measured by fluorescence method. NRBC/100 WBC (test See_Comment [Automat ed code = 6889328738) message] The system which generated this result transmitted reference range : 0.0 - 10.0 /100 WBCs. The refer ence range was not u sed to interpret th is result as normal/abnormal . NRBC x10^3 (test code See_Comment [Auto mated = 2573530675) message] The s ystem which generated this result transmitted reference range : 10*3/?L. The reference range was not used to interpret this result as normal/abnormal . GRAN MAT (NEUT) % 80.9 % (test code = 770-8) IMM GRAN % (test code 0.50 % = 8597922088) LYMPH % (test code = 5.3 % 736-9) MONO % (test code = 11.6 % 5905-5) EOS % (test code = 1.5 % 713-8) BASO % (test code = 0.2 % 706-2) GRAN MAT x10^3(ANC) 10.75 10*3/uL 1.99-6.95 H (test code = 0169583116) IMM GRAN x10^3 (test 0.06 10*3/uL 0.00-0.06 code = 3178946174) LYMPH x10^3 (test 0.71 10*3/uL 1.09-3.23 L code = 731-0) MONO x10^3 (test code 1.54 10*3/uL 0.36-1.02 H = 742-7) EOS x10^3 (test code 0.20 10*3/uL 0.06-0.53 = 711-2) BASO x10^3 (test code 0.03 10*3/uL 0.01-0.09 = 704-7) BASO STIPPLING (test Present A code = 703-9) SCHISTOCYTES (test 1+ A code = 800-3) Lab Interpretation Abnormal (test code = 99503-8) [facility] WITH [id number] 11:16:10 Test Item Value Reference Range Interpretation [...] (test code = 62.2 fL 38.5-51.6 H 52945-7) RDW-CV (test code = 23.3 % 12.1-15.4 H 788-0) PLT (test code = See_Comment [Automated 777-3) message] The sy stem which generated this result transmitted reference range : 150 - 328 10*3/ ?L. The reference r christine was not used to interpret this result as normal/abnormal . MPV (test code = Not Measure d 25275-9) IPF % (test code = 8.2 % 1.2-10.7 Platelet count 1395492692) measured by fluorescence method. NRBC/100 WBC (test See_Comment [Automat ed code = 7434729845) message] The system which generated this result transmitted reference range : 0.0 - 10.0 /100 WBCs. The refer ence range was not u sed to interpret th is result as normal/abnormal . NRBC x10^3 (test code See_Comment [Auto mated = 8558033054) message] The s ystem which generated this result transmitted reference range : 10*3/?L. The reference range was not used to interpret this result as normal/abnormal . GRAN MAT (NEUT) % 80.9 % (test code = 770-8) IMM GRAN % (test code 0.50 % = 7221483460) LYMPH % (test code = 5.3 % 736-9) MONO % (test code = 11.6 % 5905-5) EOS % (test code = 1.5 % 713-8) BASO % (test code = 0.2 % 706-2) GRAN MAT x10^3(ANC) 10.75 10*3/uL 1.99-6.95 H (test code = 3404170287) IMM GRAN x10^3 (test 0.06 10*3/uL 0.00-0.06 code = 2648374023) LYMPH x10^3 (test 0.71 10*3/uL 1.09-3.23 L code = 731-0) MONO x10^3 (test code 1.54 10*3/uL 0.36-1.02 H = 742-7) EOS x10^3 (test code 0.20 10*3/uL 0.06-0.53 = 711-2) BASO x10^3 (test code 0.03 10*3/uL 0.01-0.09 = 704-7) BASO STIPPLING (test Present A code = 703-9) SCHISTOCYTES (test 1+ A code = 800-3) Lab Interpretation Abnormal (test code = 25029-3) [facility] GLUCOSE (AUTOMATED)2020-11-03 10:14:51 Test Item Value Reference Range Interpretation Comments POCT GLU (test code = 3781502606) 198 mg/dL 70-110 H Lab Interpretation (test code = Abnormal 95392-3) [facility] GLUCOSE (AUTOMATED)2020-11-03 04:39:58 Test Item Value Reference Range Interpretation Comments POCT GLU (test code = 4474623593) 169 mg/dL 70-110 H Lab Interpretation (test code = Abnormal 71057-1) [facility] METABOLIC PANEL (NA, K, CL, CO2, GLUCOSE, BUN, CREATININE, CA)2020-11-03 02:59:33 Test Item Value Reference Range Interpretation Comments NA (test code = 150 mmol/L 135-145 H 0001049740) K (test code = 4.8 mmol/L 3.5-5.0 Slight 9006787924) hemolysis CL (test code = 121 mmol/L 98-108 H 4079427902) CO2 TOTAL (test code 24 mmol/L 23-31 = 7140786986) AGAP (test code = 2-16 5058389539) BUN (test code = 48 mg/dL 7-23 H Slight 4384637667) hemolysis GLUCOSE (test code = 135 mg/dL 70-110 H 7196317241) CREATININE (test code 1.25 mg/dL 0.60-1.25 = 2343878784) CALCIUM (test code = 7.7 mg/dL 8.6-10.6 L 6723804675) eGFR (test code = mL/min/1.73m2 1069281499) JUAN LUIS (test code = JUAN LUIS) [...] tests). Lab Interpretation Abnormal (test code = 02570-3) [facility]21 Test Item Value Reference Range Interpretation Comments MAGNESIUM (test code = 0923037050) 2.5 mg/dL 1.7-2.4 H Lab Interpretation (test code = Abnormal 24529-2) [facility]ITIS PANEL BY [id number] 23:12:08 Test Item Value Reference Range Interpretation Comments Escherichia coli K1 Negative Negative, (test code = 86968-5) Indeterminate, See Comment Haemophilus influenzae Negative Negative, (test code = 62920-5) Indeterminate, See Comment Listeria monocytogenes Negative Negative, (test code = 93005-2) Indeterminate, See Comment Neisseria meningitidis Negative Negative, (encapsulated) (test Indeterminate, code = 75836-6) See Comment Streptococcus agalactiae Negative Negative, (test code = 72729-3) Indeterminate, See Comment Streptococcus pneumoniae Negative Negative, (test code = 89462-1) Indeterminate, See Comment Cytomegalovirus (test Negative Negative, code = 96138-7) Indeterminate, See Comment Enterovirus (test code = Negative Negative, 59705-5) Indeterminate, See Comment Herpes simplex virus 1 Negative Negative, (test code = 83906-8) Indeterminate, See Comment Herpes simplex virus 2 Negative Negative, (test code = 61439-7) Indeterminate, See Comment Human herpesvirus 6 Negative Negative, (test code = 97342-4) Indeterminate, See Comment Human parechovirus (test Negative Negative, code = 05946-6) Indeterminate, See Comment Varicella zoster virus Negative Negative, (test code = 15295-5) Indeterminate, See Comment Cryptococcus Negative Negative, neoformans/gattii (test Indeterminate, code = 89100-0) See Comment JUAN LUIS (test code = JUAN LUIS) Negative:A negative result does not rule-out infection. ?This assay does not test for all potential infectious agents. Positive:A positive test result does not necessarily indicate the presence of viable organism. ? Lab Interpretation (test Normal code = 68983-5) [facility] BY [id number] 23:12:08 Test Item Value Reference Range Interpretation Comments Escherichia coli K1 Negative Negative, (test code = 67695-8) Indeterminate, See Comment Haemophilus influenzae Negative Negative, (test code = 78715-9) Indeterminate, See Comment Listeria monocytogenes Negative Negative, (test code = 69130-8) Indeterminate, See Comment Neisseria meningitidis Negative Negative, (encapsulated) (test Indeterminate, code = 11973-8) See Comment Streptococcus agalactiae Negative Negative, (test code = 94351-4) Indeterminate, See Comment Streptococcus pneumoniae Negative Negative, (test code = 24736-5) Indeterminate, See Comment Cytomegalovirus (test Negative Negative, code = 89020-8) Indeterminate, See Comment Enterovirus (test code = Negative Negative, 33819-1) Indeterminate, See Comment Herpes simplex virus 1 Negative Negative, (test code = 20288-3) Indeterminate, See Comment Herpes simplex virus 2 Negative Negative, (test code = 61516-4) Indeterminate, See Comment Human herpesvirus 6 Negative Negative, (test code = 07652-8) Indeterminate, See Comment Human parechovirus (test Negative Negative, code = 79367-5) Indeterminate, See Comment Varicella zoster virus Negative Negative, (test code = 55901-5) Indeterminate, See Comment Cryptococcus Negative Negative, neoformans/gattii (test Indeterminate, code = 64093-6) See Comment JUAN LUIS (test code = JUAN LUIS) Negative:A negative result does not rule-out infection. ?This assay does not test for all potential infectious agents. Positive:A positive test result does not necessarily indicate the presence of viable organism. ? Lab Interpretation (test Normal code = 59020-1) [facility] PAN[facility] BY [id number] 23:12:08 Test Item Value Reference Range Interpretation Comments Escherichia coli K1 Negative Negative, (test code = 21385-9) Indeterminate, See Comment Haemophilus influenzae Negative Negative, (test code = 69724-5) Indeterminate, See Comment Listeria monocytogenes Negative Negative, (test code = 35407-3) Indeterminate, See Comment Neisseria meningitidis Negative Negative, (encapsulated) (test Indeterminate, code = 59812-4) See Comment Streptococcus agalactiae Negative Negative, (test code = 83191-7) Indeterminate, See Comment Streptococcus pneumoniae Negative Negative, (test code = 42867-3) Indeterminate, See Comment Cytomegalovirus (test Negative Negative, code = 40449-7) Indeterminate, See Comment Enterovirus (test code = Negative Negative, 95759-9) Indeterminate, See Comment Herpes simplex virus 1 Negative Negative, (test code = 92060-8) Indeterminate, See Comment Herpes simplex virus 2 Negative Negative, (test code = 67984-5) Indeterminate, See Comment Human herpesvirus 6 Negative Negative, (test code = 81026-7) Indeterminate, See Comment Human parechovirus (test Negative Negative, code = 71649-5) Indeterminate, See Comment Varicella zoster virus Negative Negative, (test code = 39599-6) Indeterminate, See Comment Cryptococcus Negative Negative, neoformans/gattii (test Indeterminate, code = 45696-8) See Comment JUAN LUIS (test code = JUAN LUIS) Negative:A negative result does not rule-out infection. ?This assay does not test for all potential infectious agents. Positive:A positive test result does not necessarily indicate the presence of viable organism. ? Lab Interpretation (test Normal code = 70992-7) [facility] GLUCOSE (AUTOMATED)2020-11-02 22:21:28 Test Item Value Reference Range Interpretation Comments POCT GLU (test code = 6058447667) 94 mg/dL 70-110 Lab Interpretation (test code = Normal 80010-9) [facility] FLUID DIRECT [id number] 22:15:37 Test Item Value Reference Range Interpretation Comments BF COLOR (test code = Clear 8638887841) BF WBC Count (test See_Comment [Automat ed message] The code = 4943062095) system [facility] generated this result transmit tennille reference range : 0 - 5 /?L. The reference r christine was not used to interpr et this result as bri l/abnormal. BF RBC Count (test See_Comment [Automat ed message] The code = 8422861088) system [facility] generated this result transmit tennille reference range : /?L. The reference range was not used to interpr et this result as bri l/abnormal. [facility] FLUID DIRECT [id number] 22:15:37 Test Item Value Reference Range Interpretation Comments BF COLOR (test code = Clear 7164397848) BF WBC Count (test See_Comment [Automat ed message] The code = 6473698689) system [facility] generated this result transmit tennille reference range : 0 - 5 /?L. The reference r christine was not used to interpr et this result as bri l/abnormal. BF RBC Count (test See_Comment [Automat ed message] The code = 1326876996) system [facility] generated this result transmit tennille reference range : /?L. The reference range was not used to interpr et this result as bri l/abnormal. [facility] FLUID DIRECT [id number] 22:15:37 Test Item Value Reference Range Interpretation Comments BF COLOR (test code = Clear 0400904037) BF WBC Count (test See_Comment [Automat ed message] The code = 7818361018) system [facility] generated this result transmit tennille reference range : 0 - 5 /?L. The reference r christine was not used to interpr et this result as bri l/abnormal. BF RBC Count (test See_Comment [Automat ed message] The code = 0371321583) system [facility] generated this result transmit tennille reference range : /?L. The reference range was not used to interpr et this result as bri l/abnormal. [facility] FLUID MANUAL [id number] 22:15:37#CELS CNTDUTMB LABORATORY SERVICESLess than 100 cells counted due to low WBC; Differential is not reported in percent. ?44 cells counted: ?0 Neutrophils, 17 Lymphocytes, 27 MacrophagesUnB[facility] StationBODY FLUID MANUAL [id number] 22:15:37#EVERETT CNTDUTMB LABORATORY SERVICESLess than 100 cells counted due to low WBC; Differential is not reported in percent. ?44 cells counted: ?0 Neutrophils, 17 Lymphocytes, 27 MacrophagesUnB[facility] Scott [facility] [place] FLUID MANUAL [id number] 22:15:37#EVERETT CNTDUTMB LABORATORY SERVICESLess than 100 cells counted due to low WBC; Differential is not reported in percent. ?44 cells counted: ?0 Neutrophils, 17 Lymphocytes, 27 Macrophages [facility] [id number] 21:46:09 Test Item Value Reference Range Interpretation Comments GLU CSF (test code = 9267319254) 80 mg/dL 50-80 UNSPUN BODY FLUID COLOR (test Colorless code = 4555492085) UNSPUN BODY FLUID CLARITY (test Clear code = 4253847468) SPUN BODY FLUID COLOR (test code Colorless = 1405513997) SPUN BODY FLUID CLARITY (test Clear code = 3714882034) Sediment (test code = No sediment. 7583019449) [facility] [id number] 21:46:09 Test Item Value Reference Range Interpretation Comments GLU CSF (test code = 1519443859) 80 mg/dL 50-80 UNSPUN BODY FLUID COLOR (test Colorless code = 6556336882) UNSPUN BODY FLUID CLARITY (test Clear code = 5409040373) SPUN BODY FLUID COLOR (test code Colorless = 7735382269) SPUN BODY FLUID CLARITY (test Clear code = 9090676898) Sediment (test code = No sediment. 6719393423) [facility] [id number] 21:46:09 Test Item Value Reference Range Interpretation Comments GLU CSF (test code = 7288969767) 80 mg/dL 50-80 UNSPUN BODY FLUID COLOR (test Colorless code = 0930557224) UNSPUN BODY FLUID CLARITY (test Clear code = 9160251732) SPUN BODY FLUID COLOR (test code Colorless = 3198091799) SPUN BODY FLUID CLARITY (test Clear code = 2876323420) Sediment (test code = No sediment. 5494364412) [facility] [id number] 21:46:03 Test Item Value Reference Range Interpretation Comments T. PRO CSF (test code = 103.0 mg/dL 15.0-45.0 H 5276354407) UNSPUN BODY FLUID COLOR (test Colorless code = 8257645153) UNSPUN BODY FLUID CLARITY (test Clear code = 4343685070) SPUN BODY FLUID COLOR (test code Colorless = 1061887884) SPUN BODY FLUID CLARITY (test Clear code = 2140472993) Sediment (test code = No sediment. 5111068816) Lab Interpretation (test code = Abnormal 48744-7) [facility] [id number] 21:46:03 Test Item Value Reference Range Interpretation Comments T. PRO CSF (test code = 103.0 mg/dL 15.0-45.0 H 1636423700) UNSPUN BODY FLUID COLOR (test Colorless code = 7640082655) UNSPUN BODY FLUID CLARITY (test Clear code = 0008487924) SPUN BODY FLUID COLOR (test code Colorless = 0000020902) SPUN BODY FLUID CLARITY (test Clear code = 3037345359) Sediment (test code = No sediment. 4424058146) Lab Interpretation (test code = Abnormal 43482-7) [facility] [id number] 21:46:03 Test Item Value Reference Range Interpretation Comments T. PRO CSF (test code = 103.0 mg/dL 15.0-45.0 H 4962528791) UNSPUN BODY FLUID COLOR (test Colorless code = 9980278434) UNSPUN BODY FLUID CLARITY (test Clear code = 1753228482) SPUN BODY FLUID COLOR (test code Colorless = 2403333812) SPUN BODY FLUID CLARITY (test Clear code = 7839327105) Sediment (test code = No sediment. 5928989671) Lab Interpretation (test code = Abnormal 09957-5) [facility] METABOLIC PANEL (NA, K, CL, CO2, GLUCOSE, BUN, CREATININE, CA)2020-11-02 18:27:27 Test Item Value Reference Range Interpretation Comments NA (test code = 152 mmol/L 135-145 H 6902479010) K (test code = 3.8 mmol/L 3.5-5.0 2093886469) CL (test code = 123 mmol/L 98-108 H 7543674840) CO2 TOTAL (test code = 23 mmol/L 23-31 2000910647) AGAP (test code = 2-16 6515542733) BUN (test code = 49 mg/dL 7-23 H 9518644884) GLUCOSE (test code = 150 mg/dL 70-110 H 1777389641) CREATININE (test code = 1.37 mg/dL 0.60-1.25 H 9724973093) CALCIUM (test code = 7.9 mg/dL 8.6-10.6 L 4871885101) eGFR (test code = mL/min/1.73m2 8588128262) JUAN LUIS (test code = JUAN LUIS) [...] tests). Lab Interpretation Abnormal (test code = 28734-1) [facility] Test Item Value Reference Range Interpretation Comments MAGNESIUM (test code = 7724685947) 2.7 mg/dL 1.7-2.4 H Lab Interpretation (test code = Abnormal 83658-9) [facility] 17:42:23 Test Item Value Reference Range Interpretation Comments MAGNESIUM (test code = 6068171078) 2.6 mg/dL 1.7-2.4 H Lab Interpretation (test code = Abnormal 91495-7) [facility] GLUCOSE (AUTOMATED)2020-11-02 16:39:58 Test Item Value Reference Range Interpretation Comments POCT GLU (test code = 8962971018) 148 mg/dL 70-110 H Lab Interpretation (test code = Abnormal 15477-2) [facility] GLUCOSE (AUTOMATED)2020-11-02 12:48:24 Test Item Value Reference Range Interpretation Comments POCT GLU (test code = 1088972071) 183 mg/dL 70-110 H Lab Interpretation (test code = Abnormal 27526-5) [facility] WITH [id number] 10:59:44 Test Item Value Reference Range Interpretation [...] (test code = 60.9 fL 38.5-51.6 H 68354-1) RDW-CV (test code = 22.7 % 12.1-15.4 H 788-0) PLT (test code = See_Comment L [Automated 777-3) message] The sy stem which generated this result transmitted reference range : 150 - 328 10*3/ ?L. The reference r christine was not used to interpret this result as normal/abnormal . MPV (test code = Not Measure d 35636-2) IPF % (test code = 9.7 % 1.2-10.7 Platelet count 3182578829) measured by fluorescence method. NRBC/100 WBC (test See_Comment [Automat ed code = 0918601106) message] The system which generated this result transmitted reference range : 0.0 - 10.0 /100 WBCs. The refer ence range was not u sed to interpret th is result as normal/abnormal . NRBC x10^3 (test code See_Comment [Auto mated = 9373568796) message] The s ystem which generated this result transmitted reference range : 10*3/?L. The reference range was not used to interpret this result as normal/abnormal . GRAN MAT (NEUT) % 81.9 % (test code = 770-8) IMM GRAN % (test code 0.80 % = 2116130325) LYMPH % (test code = 6.7 % 736-9) MONO % (test code = 8.4 % 5905-5) EOS % (test code = 2.0 % 713-8) BASO % (test code = 0.2 % 706-2) GRAN MAT x10^3(ANC) 11.65 10*3/uL 1.99-6.95 H (test code = 5105988574) IMM GRAN x10^3 (test 0.11 10*3/uL 0.00-0.06 H code = 1213854043) LYMPH x10^3 (test 0.96 10*3/uL 1.09-3.23 L code = 731-0) MONO x10^3 (test code 1.20 10*3/uL 0.36-1.02 H = 742-7) EOS x10^3 (test code 0.28 10*3/uL 0.06-0.53 = 711-2) BASO x10^3 (test code 0.03 10*3/uL 0.01-0.09 = 704-7) SCHISTOCYTES (test 1+ A code = 800-3) BANDS (test code = Increased A 8623871534) TOXIC CHANGES (test Present A code = 803-7) GIANT PLATELETS (test Present See_Comment A [Auto mated code = 5908-9) message] The system which generated this result transmitted reference range : (none). The reference range was not used to interpret this result as normal/abnormal . Lab Interpretation Abnormal (test code = 43102-6) [facility] METABOLIC PANEL (NA, K, CL, CO2, GLUCOSE, BUN, CREATININE, CA)2020-11-02 10:52:59 Test Item Value Reference Range Interpretation Comments NA (test code = 150 mmol/L 135-145 H 3185746159) K (test code = 4.0 mmol/L 3.5-5.0 0031652424) CL (test code = 121 mmol/L 98-108 H 0583932870) CO2 TOTAL (test code = 22 mmol/L 23-31 L 1193254658) AGAP (test code = 2-16 9922573874) BUN (test code = 49 mg/dL 7-23 H 0100697306) GLUCOSE (test code = 162 mg/dL 70-110 H 0524407969) CREATININE (test code = 1.42 mg/dL 0.60-1.25 H 5675570123) CALCIUM (test code = 7.8 mg/dL 8.6-10.6 L 5444646744) eGFR (test code = mL/min/1.73m2 2740506513) JUAN LUIS (test code = JUAN LUIS) [...] tests). Lab Interpretation Abnormal (test code = 02957-4) [facility], [id number] 07:23:16 Test Item Value Reference Range Interpretation Comments VIT B12 (test code = 956 pg/mL 240-930 H 5046611334) JUAN LUIS (test code = JUAN LUIS) Biotin has been reported to cause a positive bias, interpret results relative to patient's use of biotin. Lab Interpretation (test Abnormal code = 66315-1) [facility], [id number] 07:23:16 Test Item Value Reference Range Interpretation Comments VIT B12 (test code = 956 pg/mL 240-930 H 1165970090) JUAN LUIS (test code = JUAN LUIS) Biotin has been reported to cause a positive bias, interpret results relative to patient's use of biotin. Lab Interpretation (test Abnormal code = 29319-3) [facility], [id number] 07:23:16 Test Item Value Reference Range Interpretation Comments VIT B12 (test code = 956 pg/mL 240-930 H 1372281622) JUAN LUIS (test code = JUAN LUIS) Biotin has been reported to cause a positive bias, interpret results relative to patient's use of biotin. Lab Interpretation (test Abnormal code = 82182-0) [facility] 04:03:00 Test Item Value Reference Range Interpretation Comments FOLATE SER (test code = 2951596115) >20.0 3.0-20.0 H Lab Interpretation (test code = Abnormal 04763-7) [facility] 04:03:00 Test Item Value Reference Range Interpretation Comments FOLATE SER (test code = 2363722724) >20.0 3.0-20.0 H Lab Interpretation (test code = Abnormal 67183-3) [facility] 04:03:00 Test Item Value Reference Range Interpretation Comments FOLATE SER (test code = 9818991767) >20.0 3.0-20.0 H Lab Interpretation (test code = Abnormal 37367-5) [facility]2020-11-02 03:58:01 Test Item Value Reference Range Interpretation Comments POCT GLU (test code = 6827648228) 109 mg/dL 70-110 Lab Interpretation (test code = Normal 18814-3) [facility] [id number] 03:26:53 Test Item Value Reference Range Interpretation Comments TSH (test code = See_Comment Biotin has been 4753773359) reported to cau se a negative bias, interpret resul ts relative to pat ient's use of biotin. [Automated mess age] The system [employer] generated this result transmitted ref erence range: 0.45 - 4 .70 mIU/L. The refe rence range was not u sed to interpret this result as normal/abnor mal. Lab Interpretation (test Normal code = 65870-7) [facility] [id number] 03:26:53 Test Item Value Reference Range Interpretation Comments TSH (test code = See_Comment Biotin has been 2972368139) reported to cau se a negative bias, interpret resul ts relative to pat ient's use of biotin. [Automated mess age] The system [employer] generated this result transmitted ref erence range: 0.45 - 4 .70 mIU/L. The refe rence range was not u sed to interpret this result as normal/abnor mal. Lab Interpretation (test Normal code = 02140-2) [facility] [id number] 03:26:53 Test Item Value Reference Range Interpretation Comments TSH (test code = See_Comment Biotin has been 6733348371) reported to cau se a negative bias, interpret resul ts relative to pat ient's use of biotin. [Automated mess age] The system [employer] generated this result transmitted ref erence range: 0.45 - 4 .70 mIU/L. The refe rence range was not u sed to interpret this result as normal/abnor mal. Lab Interpretation (test Normal code = 58753-9) [facility] CULTURE [id number] 01:01:36 Test Item Value Reference Range Interpretation Comments Blood Culture-Aerobic No organisms No growth Previo us (test code = 58216-8) isolated prelim inary verified result was Culture [...] Culture-Anaerobic isolated preliminar y (test code = 00599-5) verifi ed result was Culture In Progress [...] CDT Lab Interpretation Normal (test code = 75305-1) [facility] CULTURE [id number] 01:01:36 Test Item Value Reference Range Interpretation Comments Blood Culture-Aerobic No organisms No growth Previo us (test code = 50178-3) isolated prelim inary verified result was Culture [...] Culture-Anaerobic isolated preliminar y (test code = 52014-8) verifi ed result was Culture In Progress [...] CDT Lab Interpretation Normal (test code = 96172-2) [facility] CULTURE [id number] 01:01:36 Test Item Value Reference Range Interpretation Comments Blood Culture-Aerobic No organisms No growth Previo us (test code = 42414-2) isolated prelim inary verified result was Culture [...] Culture-Anaerobic isolated preliminar y (test code = 16963-0) verifi ed result was Culture In Progress [...] CDT Lab Interpretation Normal (test code = 41434-0) [facility] CULTURE [id number] 01:01:36 Test Item Value Reference Range Interpretation Comments Blood Culture-Aerobic No organisms No growth Previo us (test code = 74014-4) isolated prelim inary verified result was Culture [...] Culture-Anaerobic isolated preliminar y (test code = 53646-0) verifi ed result was Culture In Progress [...] CDT Lab Interpretation Normal (test code = 51552-0) [facility]2020-11-02 00:43:35 Test Item Value Reference Range Interpretation Comments POCT GLU (test code = 6994801824) 204 mg/dL 70-110 H Lab Interpretation (test code = Abnormal 66444-8) [facility] - Duration of test: 20-60 mins; Release to patient: [id number] 00:00:00Date and Time of Procedure: 11/02/2020, 8:47:43 [...] Lindsey Rose MD Date of int erpretation: 11/02/2020[facility] StationElectroencephalogram (EEG) - Duration of test: 20-60 mins; Release to patient: [id number] 00:00:00Date and Time of Procedure: 11/02/2020, 8:47:43 [...] indicated. Lindsey Rose MD Date of interpretation: 11/02/2020[facility]encephalogram (EEG) - Duration of test: 20-60 mins; Release to patient: [id number] 00:00:00Date and Time of Procedure: 11/02/2020, 8:47:43 [...] Lindsey Rose MD Date of int erpretation: 11/02/2020UnB[facility] StationPOCT GLUCOSE (AUTOMATED) 2020-11-01 21:47:18 Test Item Value Reference Range Interpretation Comments POCT GLU (test code = 9812270606) 155 mg/dL 70-110 H Lab Interpretation (test code = Abnormal 99373-3) [facility]2020-11-01 21:00:48 Test Item Value Reference Range Interpretation Comments POCT GLU (test code = 4930414183) 149 mg/dL 70-110 H Lab Interpretation (test code = Abnormal 89552-9) [facility]ALCITONIN2021-04-20 20:04:50 Test Item Value Reference Range Interpretation Comments Procalcitonin (test 0.24 ng/mL <0.07 H code = 9273161680) JUAN LUIS (test code = JUAN LUIS) [...] biotics/default.asp Lab Interpretation Abnormal (test code = 72772-6) [facility]50 Test Item Value Reference Range Interpretation Comments Procalcitonin (test 0.24 ng/mL <0.07 H code = 9164060107) JUAN LUIS (test code = JUAN LUIS) [...] biotics/default.asp Lab Interpretation Abnormal (test code = 73449-4) [facility] 20:04:50 Test Item Value Reference Range Interpretation Comments Procalcitonin (test 0.24 ng/mL <0.07 H code = 2957704915) JUAN LUIS (test code = JUAN LUIS) [...] biotics/default.asp Lab Interpretation Abnormal (test code = 28823-6) [facility] METABOLIC PANEL (NA, K, CL, CO2, GLUCOSE, BUN, CREATININE, CA)2020-11-01 18:21:16 Test Item Value Reference Range Interpretation Comments NA (test code = 149 mmol/L 135-145 H 2682984496) K (test code = 3.9 mmol/L 3.5-5.0 6147652774) CL (test code = 121 mmol/L 98-108 H 1142513833) CO2 TOTAL (test code = 22 mmol/L 23-31 L 4557908190) AGAP (test code = 2-16 3991901005) BUN (test code = 47 mg/dL 7-23 H 9220525824) GLUCOSE (test code = 218 mg/dL 70-110 H 1073342387) CREATININE (test code = 1.42 mg/dL 0.60-1.25 H 8181848888) CALCIUM (test code = 7.6 mg/dL 8.6-10.6 L 6902991751) eGFR (test code = mL/min/1.73m2 1971726893) JUAN LUIS (test code = JUAN LUIS) [...] tests). Lab Interpretation Abnormal (test code = 73789-5) [facility] GLUCOSE (AUTOMATED)2020-11-01 17:04:41 Test Item Value Reference Range Interpretation Comments POCT GLU (test code = 3121816926) 246 mg/dL 70-110 H Lab Interpretation (test code = Abnormal 99122-0) [facility] GLUCOSE (AUTOMATED)2020-11-01 12:53:56 Test Item Value Reference Range Interpretation Comments POCT GLU (test code = 8548719820) 214 mg/dL 70-110 H Lab Interpretation (test code = Abnormal 00184-7) [facility] WITH [id number] 11:03:22 Test Item Value Reference Range Interpretation [...] (test code = 60.5 fL 38.5-51.6 H 70315-0) RDW-CV (test code = 22.5 % 12.1-15.4 H 788-0) PLT (test code = See_Comment L [Automated 777-3) message] The sy stem which generated this result transmitted reference range : 150 - 328 10*3/ ?L. The reference r christine was not used to interpret this result as normal/abnormal . MPV (test code = Not Measure d 14155-0) IPF % (test code = 6.1 % 1.2-10.7 Platelet count 1142719443) measured by fluorescence method. NRBC/100 WBC (test See_Comment [Automat ed code = 5069954604) message] The system which generated this result transmitted reference range : 0.0 - 10.0 /100 WBCs. The refer ence range was not u sed to interpret th is result as normal/abnormal . NRBC x10^3 (test code See_Comment [Auto mated = 1330916656) message] The s ystem which generated this result transmitted reference range : 10*3/?L. The reference range was not used to interpret this result as normal/abnormal . GRAN MAT (NEUT) % 83.1 % (test code = 770-8) IMM GRAN % (test code 1.00 % = 3491044189) LYMPH % (test code = 7.0 % 736-9) MONO % (test code = 6.7 % 5905-5) EOS % (test code = 2.0 % 713-8) BASO % (test code = 0.2 % 706-2) GRAN MAT x10^3(ANC) 12.96 10*3/uL 1.99-6.95 H (test code = 3091077549) IMM GRAN x10^3 (test 0.15 10*3/uL 0.00-0.06 H code = 4140041371) LYMPH x10^3 (test 1.09 10*3/uL 1.09-3.23 code = 731-0) MONO x10^3 (test code 1.05 10*3/uL 0.36-1.02 H = 742-7) EOS x10^3 (test code 0.31 10*3/uL 0.06-0.53 = 711-2) BASO x10^3 (test code 0.03 10*3/uL 0.01-0.09 = 704-7) SCHISTOCYTES (test 1+ A code = 800-3) TOXIC CHANGES (test Present A code = 803-7) Lab Interpretation Abnormal (test code = 38192-6) [facility] METABOLIC PANEL (NA, K, CL, CO2, GLUCOSE, BUN, CREATININE, CA)2020-11-01 10:58:55 Test Item Value Reference Range Interpretation Comments NA (test code = 151 mmol/L 135-145 H 1945620476) K (test code = 4.0 mmol/L 3.5-5.0 4293291266) CL (test code = 124 mmol/L 98-108 H 1416099750) CO2 TOTAL (test code = 22 mmol/L 23-31 L 7756813472) AGAP (test code = 2-16 0808374979) BUN (test code = 48 mg/dL 7-23 H 4627223261) GLUCOSE (test code = 201 mg/dL 70-110 H 3111443618) CREATININE (test code = 1.46 mg/dL 0.60-1.25 H 1481449605) CALCIUM (test code = 7.7 mg/dL 8.6-10.6 L 0910448541) eGFR (test code = mL/min/1.73m2 0675421460) JUAN LUIS (test code = JUAN LUIS) [...] tests). Lab Interpretation Abnormal (test code = 16652-3) [facility] GLUCOSE (AUTOMATED)2020-11-01 10:42:03 Test Item Value Reference Range Interpretation Comments POCT GLU (test code = 6427776420) 208 mg/dL 70-110 H Lab Interpretation (test code = Abnormal 64119-9) [facility] GLUCOSE (AUTOMATED)2020-11-01 08:18:28 Test Item Value Reference Range Interpretation Comments POCT GLU (test code = 5450299399) 218 mg/dL 70-110 H Lab Interpretation (test code = Abnormal 39197-4) [facility] METABOLIC PANEL (NA, K, CL, CO2, GLUCOSE, BUN, CREATININE, CA)2020-11-01 06:04:39 Test Item Value Reference Range Interpretation Comments NA (test code = 152 mmol/L 135-145 H 2484207476) K (test code = 4.0 mmol/L 3.5-5.0 1813733383) CL (test code = 123 mmol/L 98-108 H 7904441269) CO2 TOTAL (test code = 23 mmol/L 23-31 0658359006) AGAP (test code = 2-16 9186127675) BUN (test code = 49 mg/dL 7-23 H 9676467861) GLUCOSE (test code = 144 mg/dL 70-110 H 3498736521) CREATININE (test code = 1.47 mg/dL 0.60-1.25 H 4749934232) CALCIUM (test code = 7.9 mg/dL 8.6-10.6 L 4107837039) eGFR (test code = mL/min/1.73m2 1822482434) JUAN LUIS (test code = JUAN LUIS) [...] tests). Lab Interpretation Abnormal (test code = 35277-9) [facility] GLUCOSE (AUTOMATED)2020-11-01 05:17:31 Test Item Value Reference Range Interpretation Comments POCT GLU (test code = 7928474247) 137 mg/dL 70-110 H Lab Interpretation (test code = Abnormal 52269-6) [facility] GLUCOSE (AUTOMATED)2020-11-01 02:27:59 Test Item Value Reference Range Interpretation Comments POCT GLU (test code = 8896560660) 129 mg/dL 70-110 H Lab Interpretation (test code = Abnormal 30784-6) [facility] [id number] 01:52:27 Within confines of motion degradation, no [...] sinus mucosal thickening. Bilateral mastoid air cellopacification. [facility], Radiant Results In[employer]User - 10/31/2020 8:53 [...] confines of motion degradation, no acute intracranial abnormality.[facility] STROKE BRAIN WO [id number] 01:52:27 Within confines of motion degradation, no [...] Bilateral mastoid air cellopacification. [facility], Radiant Results [employer] - 10/31/2020 8:53 PM [...] confines of motion degradation, no acute intracranial abnormality.[facility] STROKE BRAIN WO [id number] 01:52:27 Within confines of motion degradation, no [...] sinus mucosal thickening. Bilateral mastoid air cellopacification. [facility], Radiant Results Inft User - 10/31/2020 8:53 [...] confines of motion degradation, no acute intracranial abnormality.[facility] GLUCOSE (AUTOMATED)2020-10-31 23:28:12 Test Item Value Reference Range Interpretation Comments POCT GLU (test code = 2180357508) 194 mg/dL 70-110 H Lab Interpretation (test code = Abnormal 81996-7) [facility] GLUCOSE (AUTOMATED)2020-10-31 16:44:35 Test Item Value Reference Range Interpretation Comments POCT GLU (test code = 8995957162) 230 mg/dL 70-110 H Lab Interpretation (test code = Abnormal 64986-5) [facility] [id number] 13:11:08EXAM: XR CHEST 1 VW HISTORY: SOB [...] The upper lungs are slightlycongested but otherwise clear.[facility] 1 [id number] 13:11:08EXAM: XR CHEST 1 VW HISTORY: SOB [...] The upper lungs are slightlycongested but otherwise clear.[facility] GLUCOSE (AUTOMATED)2020-10-31 12:52:48 Test Item Value Reference Range Interpretation Comments POCT GLU (test code = 0350700664) 285 mg/dL 70-110 H Lab Interpretation (test code = Abnormal 52587-7) [facility] - 30 minutes after transfusion of each [id number] 11:57:20 Test Item Value Reference Range Interpretation Comments WBC (test code = See_Comment H [Automated message] 6690-2) The system [employer] generated this result transmitted ref erence range: 4.20 - 1 0.70 10*3/?L. The reference range was not used to int erpret this result as normal/abnormal . RBC (test code = 789-8) See_Comment L [Au tomated message] The system [employer] generated this result transmitted ref erence range: [...] See_Comment L [Au tomated message] The system [employer] generated this result transmitted ref erence range: 150 - 32 8 10*3/?L. The reference range was not used to int erpret this result as normal/abnormal . MPV (test code = Not Measure d 05624-1) RDW-CV (test code = 22.4 % 12.1-15.4 H 788-0) RDW-SD (test code = 61.0 fL 38.5-51.6 H 27442-7) NRBC x10^3 (test code = See_Comment [Au tomated message] 8252889403) The system [employer] generated this result transmitted ref erence range: 10*3/?L. The reference range was not used to int erpret this result as normal/abnormal . NRBC/100 WBC (test code See_Comment [Au tomated message] = 2358447437) The system [employer] generated this result transmitted ref erence range: 0.0 - 10 .0 /100 WBCs. The reference range was not used to int erpret this result as normal/abnormal . IPF % (test code = 6.6 % 1.2-10.7 Platelet count 9881867530) measured by fluorescence me thod. Lab Interpretation Abnormal (test code = 10679-8) [facility] Packed RBC (in units), 1 Units 2020-10-31 06:44:13 Test Item Value Reference Range Interpretation Comments Cross Match Result Compatible (test code = 4409) ISBT Blood Type Code (test code = 345749) Unit Blood Type (test A Pos code = 4410) Unit Number (test [id number] code = 4411) Blood Expiration Date & Time (test code = 415599) Status Information Issued (test code = 4412) Product Red Blood Cells Identification (test code = 4413) Product Code (test [id number] Performed at [facility] code = 4414) Laboratory Services - [facility] Blood [address] [address]Nblt Free: [phone] A No. [id number] [facility] Packed RBC (in units), 1 Units 2020-10-31 06:44:13 Test Item Value Reference Range Interpretation Comments Cross Match Result Compatible (test code = 4409) ISBT Blood Type Code (test code = 439828) Unit Blood Type (test A Pos code = 4410) Unit Number (test [id number] code = 4411) Blood Expiration Date & Time (test code = 100323) Status Information Issued (test code = 4412) Product Red Blood Cells Identification (test code = 4413) Product Code (test [id number] Performed at [facility] code = 4414) Laboratory Services - [facility] Blood [address] s [address]Wxdu Free: [phone] A No. [id number] [facility] Packed RBC (in units), 1 Units 2020-10-31 06:44:13 Test Item Value Reference Range Interpretation Comments Cross Match Result Compatible (test code = 4409) ISBT Blood Type Code (test code = 764833) Unit Blood Type (test A Pos code = 4410) Unit Number (test [id number] code = 4411) Blood Expiration Date & Time (test code = 669035) Status Information Issued (test code = 4412) Product Red Blood Cells Identification (test code = 4413) Product Code (test [id number] Performed at [facility] code = 4414) Laboratory [facility] Blood [address] [address]Kutg Free: [phone] A No. [id number] [facility] and Screen - ONCE [id number] 06:28:19 Test Item Value Reference Range Interpretation Comments ABO & RH (test code A POSITIVE Performe d at [facility] = 20) Laboratory [facility] Blood [address] [address]Sfbo Free: [phone] A No. [id number] IAT (test code = Negative Performed a t [facility] 1185) Laboratory [facility] Blood [facility] [address] [place] [address]Lnaf Free: [phone] A No. [id number] [facility] and Screen - ONCE [id number] 06:28:19 Test Item Value Reference Range Interpretation Comments ABO & RH (test code A POSITIVE Performe d at [facility] = 20) Laboratory [facility] Blood [facility] [address] [place] [address]Tsto Free: [phone] A No. [id number] IAT (test code = Negative Performed a t [facility] 1185) Laboratory [facility] Blood [facility] [address] [place] [address]Qwks Free: [phone] A No. [id number] [facility] and Screen - ONCE [id number] 06:28:19 Test Item Value Reference Range Interpretation Comments ABO & RH (test code A POSITIVE Performe d at [facility] = 20) Laboratory Serv [facility] Blood Bank3 [address] [facility] s [address]Vceq Free: [phone] A No. [id number] IAT (test code = Negative Performed a t [facility] 1185) Laboratory Serv [facility] Blood Bank3 [facility] s [address]Gfpz Free: [phone] A No. [id number] [facility]2020-10-31 05:36:57 Test Item Value Reference Range Interpretation Comments POCT GLU (test code = 6715097197) 242 mg/dL 70-110 H Lab Interpretation (test code = Abnormal 49423-0) [facility] 05:07:27 Test Item Value Reference Range Interpretation Comments MAGNESIUM (test code = 9934556591) 2.5 mg/dL 1.7-2.4 H Lab Interpretation (test code = Abnormal 80180-0) [facility] WITH [id number] 04:57:09 Test Item Value Reference Range Interpretation [...] (test code = 60.2 fL 38.5-51.6 H 57995-7) RDW-CV (test code = 22.7 % 12.1-15.4 H 788-0) PLT (test code = See_Comment L [Automated 777-3) message] The sy stem which generated this result transmitted reference range : 150 - 328 10*3/ ?L. The reference r christine was not used to interpret this result as normal/abnormal . MPV (test code = Not Measure d 75388-5) IPF % (test code = 3.4 % 1.2-10.7 Platelet count 6905439033) measured by fluorescence method. NRBC/100 WBC (test See_Comment [Automat ed code = 8843573630) message] The system which generated this result transmitted reference range : 0.0 - 10.0 /100 WBCs. The refer ence range was not u sed to interpret th is result as normal/abnormal . NRBC x10^3 (test code <0.01 See_Comment [Auto mated = 4630809932) message] The s ystem which generated this result transmitted reference range : 10*3/?L. The reference range was not used to interpret this result as normal/abnormal . GRAN MAT (NEUT) % 82.8 % (test code = 770-8) IMM GRAN % (test code 1.10 % = 6556404998) LYMPH % (test code = 7.8 % 736-9) MONO % (test code = 7.0 % 5905-5) EOS % (test code = 1.2 % 713-8) BASO % (test code = 0.1 % 706-2) GRAN MAT x10^3(ANC) 11.75 10*3/uL 1.99-6.95 H (test code = 8684806261) IMM GRAN x10^3 (test 0.16 10*3/uL 0.00-0.06 H code = 6985856921) LYMPH x10^3 (test 1.10 10*3/uL 1.09-3.23 code = 731-0) MONO x10^3 (test code 0.99 10*3/uL 0.36-1.02 = 742-7) EOS x10^3 (test code 0.17 10*3/uL 0.06-0.53 = 711-2) BASO x10^3 (test code <0.03 0.01-0.09 = 704-7) SCHISTOCYTES (test 1+ A code = 800-3) Lab Interpretation Abnormal (test code = 55417-2) [facility] (for use with Heparin Drip)2020-10-31 04:49:42 Test Item Value Reference Range Interpretation Comments APTT Patient (test code See_Comment H [Au tomated message] = 3173-2) The system [employer] generated this result transmitted ref erence range: 26 - 36 Seconds. The reference range was not used to int erpret this result as normal/abnormal . Lab Interpretation (test Abnormal code = 69216-8) [facility] (for use with Heparin Drip)2020-10-31 04:49:42 Test Item Value Reference Range Interpretation Comments APTT Patient (test code See_Comment H [Au tomated message] = 3173-2) The system [employer] generated this result transmitted ref erence range: 26 - 36 Seconds. The reference range was not used to int erpret this result as normal/abnormal . Lab Interpretation (test Abnormal code = 83875-4) [facility] (for use with Heparin Drip)2020-10-31 04:49:42 Test Item Value Reference Range Interpretation Comments APTT Patient (test code See_Comment H [Au tomated message] = 3173-2) The system [employer] generated this result transmitted ref erence range: 26 - 36 Seconds. The reference range was not used to int erpret this result as normal/abnormal . Lab Interpretation (test Abnormal code = 22779-0) [facility] METABOLIC PANEL (NA, K, CL, CO2, GLUCOSE, BUN, CREATININE, CA)2020-10-31 04:34:49 Test Item Value Reference Range Interpretation Comments NA (test code = 151 mmol/L 135-145 H 6984442902) K (test code = 3.9 mmol/L 3.5-5.0 5696399079) CL (test code = 124 mmol/L 98-108 H 7478095316) CO2 TOTAL (test code = 22 mmol/L 23-31 L 3604181949) AGAP (test code = 2-16 6798783719) BUN (test code = 52 mg/dL 7-23 H 4283585326) GLUCOSE (test code = 212 mg/dL 70-110 H 7394955310) CREATININE (test code = 1.44 mg/dL 0.60-1.25 H 8305618818) CALCIUM (test code = 8.0 mg/dL 8.6-10.6 L 5480868379) eGFR (test code = mL/min/1.73m2 2776995151) JUAN LUIS (test code = JUAN LUIS) [...] tests). Lab Interpretation Abnormal (test code = 31761-4) [facility] GLUCOSE (AUTOMATED)2020-10-31 01:46:55 Test Item Value Reference Range Interpretation Comments POCT GLU (test code = 6725721664) 259 mg/dL 70-110 H Lab Interpretation (test code = Abnormal 46951-7) [facility] GLUCOSE (AUTOMATED)2020-10-30 22:14:20 Test Item Value Reference Range Interpretation Comments POCT GLU (test code = 1732061522) 317 mg/dL 70-110 H Lab Interpretation (test code = Abnormal 44989-0) [facility] 20[facility]38:02 Test Item Value Reference Range Interpretation Comments MAGNESIUM (test code = 1477649438) 2.4 mg/dL 1.7-2.4 Lab Interpretation (test code = Normal 84568-2) [facility] GLUCOSE (AUTOMATED)2020-10-30 19:46:18 Test Item Value Reference Range Interpretation Comments POCT GLU (test code = 6758529042) 374 mg/dL 70-110 H Lab Interpretation (test code = Abnormal 27488-7) [facility] D[facility]2020-10-30 17:27:09 Test Item Value Reference Range Interpretation Comments APTT Patient (test code See_Comment H [Au tomated message] = 3173-2) The system [employer] generated this result transmitted ref erence range: 26 - 36 Seconds. The reference range was not used to int erpret this result as normal/abnormal . Lab Interpretation (test Abnormal code = 05028-2) [facility] GLUCOSE (AUTOMATED)2020-10-30 17:07:11 Test Item Value Reference Range Interpretation Comments POCT GLU (test code = 8826867715) 368 mg/dL 70-110 H Lab Interpretation (test code = Abnormal 87141-5) [facility] (NA, K, CL, CO2, GLUCOSE, BUN, CREATININE, CA)2020-10-30 14:34:56 Test Item Value Reference Range Interpretation Comments NA (test code = 148 mmol/L 135-145 H 4944213248) K (test code = 4.1 mmol/L 3.5-5.0 1941081447) CL (test code = 122 mmol/L 98-108 H 1898168041) CO2 TOTAL (test code = 20 mmol/L 23-31 L 9735171740) AGAP (test code = 2-16 5414110391) BUN (test code = 51 mg/dL 7-23 H 4960072702) GLUCOSE (test code = 343 mg/dL 70-110 H 6258691667) CREATININE (test code = 1.43 mg/dL 0.60-1.25 H 0054187703) CALCIUM (test code = 8.1 mg/dL 8.6-10.6 L 1176636095) eGFR (test code = mL/min/1.73m2 9449781368) JUAN LUIS (test code = JUAN LUIS) [...] tests). Lab Interpretation Abnormal (test code = 09068-5) [facility] WITHOUT [id number] 14:10:28 Test Item Value Reference Range Interpretation Comments WBC (test code = See_Comment H [Automated message] 6690-2) The system [employer] generated this result transmitted ref erence range: 4.20 - 1 0.70 10*3/?L. The reference range was not used to int erpret this result as normal/abnormal . RBC (test code = 789-8) See_Comment L [Au tomated message] The system [employer] generated this result transmitted ref erence range: [...] See_Comment L [Au tomated message] The system [employer] generated this result transmitted ref erence range: 150 - 32 8 10*3/?L. The reference range was not used to int erpret this result as normal/abnormal . MPV (test code = Not Measure d 09930-5) RDW-CV (test code = 22.8 % 12.1-15.4 H 788-0) RDW-SD (test code = 60.3 fL 38.5-51.6 H 15306-9) NRBC x10^3 (test code = <0.01 See_Comment [Au tomated message] 9329980041) The system [employer] generated this result transmitted ref erence range: 10*3/?L. The reference range was not used to int erpret this result as normal/abnormal . NRBC/100 WBC (test code See_Comment [Au tomated message] = 1806061442) The system [employer] generated this result transmitted ref erence range: 0.0 - 10 .0 /100 WBCs. The reference range was not used to int erpret this result as normal/abnormal . IPF % (test code = 3.9 % 1.2-10.7 Platelet count 4952059674) measured by fluorescence me thod. Lab Interpretation Abnormal (test code = 19580-2) [facility] GLUCOSE (AUTOMATED)2020-10-30 12:43:30 Test Item Value Reference Range Interpretation Comments POCT GLU (test code = 2942414129) 350 mg/dL 70-110 H Lab Interpretation (test code = Abnormal 22824-5) [facility] GLUCOSE (AUTOMATED)2020-10-30 09:35:03 Test Item Value Reference Range Interpretation Comments POCT GLU (test code = 6145674446) 302 mg/dL 70-110 H Lab Interpretation (test code = Abnormal 44245-8) [facility] GLUCOSE (AUTOMATED)2020-10-30 06:24:42 Test Item Value Reference Range Interpretation Comments POCT GLU (test code = 7945471985) 280 mg/dL 70-110 H Lab Interpretation (test code = Abnormal 16680-3) [facility] WITH [id number] 06:22:16 Test Item Value Reference Range Interpretation [...] (test code = 60.6 fL 38.5-51.6 H 64281-9) RDW-CV (test code = 22.7 % 12.1-15.4 H 788-0) PLT (test code = See_Comment L [Automated 777-3) message] The sy stem which generated this result transmitted reference range : 150 - 328 10*3/ ?L. The reference r christine was not used to interpret this result as normal/abnormal . MPV (test code = 12.3 fL 9.8-13.0 11201-9) IPF % (test code = 2.3 % 1.2-10.7 Platelet count 0214596525) measured by fluorescence method. NRBC/100 WBC (test See_Comment [Automat ed code = 8947239283) message] The system which generated this result transmitted reference range : 0.0 - 10.0 /100 WBCs. The refer ence range was not u sed to interpret th is result as normal/abnormal . NRBC x10^3 (test code <0.01 See_Comment [Auto mated = 2016816386) message] The s ystem which generated this result transmitted reference range : 10*3/?L. The reference range was not used to interpret this result as normal/abnormal . GRAN MAT (NEUT) % 83.1 % (test code = 770-8) IMM GRAN % (test code 1.70 % = 1461866289) LYMPH % (test code = 7.7 % 736-9) MONO % (test code = 6.6 % 5905-5) EOS % (test code = 0.6 % 713-8) BASO % (test code = 0.3 % 706-2) GRAN MAT x10^3(ANC) 12.88 10*3/uL 1.99-6.95 H (test code = 8003548036) IMM GRAN x10^3 (test 0.26 10*3/uL 0.00-0.06 H code = 6287796832) LYMPH x10^3 (test 1.19 10*3/uL 1.09-3.23 code [...] 803-7) Lab Interpretation Abnormal (test code = 57492-0) [facility]2020-10-30 05:58:19 Test Item Value Reference Range Interpretation Comments APTT Patient (test code See_Comment H [Au tomated message] = 3173-2) The system [employer] generated this result transmitted ref erence range: 26 - 36 Seconds. The reference range was not used to int erpret this result as normal/abnormal . Lab Interpretation (test Abnormal code = 75817-2) [facility] METABOLIC PANEL (NA, K, CL, CO2, GLUCOSE, BUN, CREATININE, CA)2020-10-30 05:54:18 Test Item Value Reference Range Interpretation Comments NA (test code = 150 mmol/L 135-145 H 2434788409) K (test code = 3.8 mmol/L 3.5-5.0 7241698269) CL (test code = 122 mmol/L 98-108 H 6512759996) CO2 TOTAL (test code = 20 mmol/L 23-31 L 0790509520) AGAP (test code = 2-16 8467953647) BUN (test code = 49 mg/dL 7-23 H 2022743935) GLUCOSE (test code = 261 mg/dL 70-110 H 3855619296) CREATININE (test code = 1.40 mg/dL 0.60-1.25 H 5128642159) CALCIUM (test code = 8.2 mg/dL 8.6-10.6 L 9670932667) eGFR (test code = mL/min/1.73m2 2458461915) JUAN LUIS (test code = JUAN LUIS) [...] tests). Lab Interpretation Abnormal (test code = 06015-6) [facility]53 Test Item Value Reference Range Interpretation Comments MAGNESIUM (test code = 5400016213) 2.5 mg/dL 1.7-2.4 H Lab Interpretation (test code = Abnormal 32481-3) [facility] GLUCOSE (AUTOMATED)2020-10-30 03:26:07 Test Item Value Reference Range Interpretation Comments POCT GLU (test code = 7440060701) 246 mg/dL 70-110 H Lab Interpretation (test code = Abnormal 79232-1) [facility] GLUCOSE (AUTOMATED)2020-10-30 00:46:09 Test Item Value Reference Range Interpretation Comments POCT GLU (test code = 6848152372) 238 mg/dL 70-110 H Lab Interpretation (test code = Abnormal 98674-3) [facility] D[facility]2020-10-29 23:13:49 Test Item Value Reference Range Interpretation Comments APTT Patient (test code See_Comment H [Au tomated message] = 3173-2) The system [employer] generated this result transmitted ref erence range: 26 - 36 Seconds. The reference range was not used to int erpret this result as normal/abnormal . Lab Interpretation (test Abnormal code = 86597-4) [facility] GLUCOSE (AUTOMATED)2020-10-29 22:25:56 Test Item Value Reference Range Interpretation Comments POCT GLU (test code = 6533280145) 243 mg/dL 70-110 H Lab Interpretation (test code = Abnormal 91665-0) [facility] 20:59:19 Test Item Value Reference Range Interpretation Comments MAGNESIUM (test code = 0103990843) 2.4 mg/dL 1.7-2.4 Lab Interpretation (test code = Normal 84624-1) [facility] (NA, K, CL, CO2, GLUCOSE, BUN, CREATININE, CA)2020-10-29 20:41:28 Test Item Value Reference Range Interpretation Comments NA (test code = 150 mmol/L 135-145 H 3227182210) K (test code = 4.0 mmol/L 3.5-5.0 1391256337) CL (test code = 123 mmol/L 98-108 H 5972269451) CO2 TOTAL (test code = 19 mmol/L 23-31 L 4769084045) AGAP (test code = 2-16 0508888836) BUN (test code = 49 mg/dL 7-23 H 0954766037) GLUCOSE (test code = 197 mg/dL 70-110 H 5849997251) CREATININE (test code = 1.35 mg/dL 0.60-1.25 H 5938801895) CALCIUM (test code = 8.6 mg/dL 8.6-10.6 9212529938) eGFR (test code = mL/min/1.73m2 4530725040) JUAN LUIS (test code = JUAN LUIS) [...] tests). Lab Interpretation Abnormal (test code = 38308-4) [facility] GLUCOSE (AUTOMATED)2020-10-29 19:13:21 Test Item Value Reference Range Interpretation Comments POCT GLU (test code = 2863604334) 196 mg/dL 70-110 H Lab Interpretation (test code = Abnormal 54713-1) [facility] GLUCOSE (AUTOMATED)2020-10-29 16:28:35 Test Item Value Reference Range Interpretation Comments POCT GLU (test code = 4984794545) 192 mg/dL 70-110 H Lab Interpretation (test code = Abnormal 01245-5) [facility] MSSA Screen by PCR, [id number] 16:25:18 Test Item Value Reference Range Interpretation Comments MSSA Screen by PCR Narlo (test code Negative Negative = 16492-0) MRSA/MSSA Positive? (test code = No No 6147540999) Lab Interpretation (test code = Normal 46588-7) [facility] MSSA Screen by PCR, [id number] 16:25:18 Test Item Value Reference Range Interpretation Comments MSSA Screen by PCR, Nares (test code Negative Negative = 23016-5) MRSA/MSSA Positive? (test code = No No 4041754503) Lab Interpretation (test code = Normal 00845-2) [facility] MSSA Screen by PCR, [id number] 16:25:18 Test Item Value Reference Range Interpretation Comments MSSA Screen by PCR Nares (test code Negative Negative = 06788-5) MRSA/MSSA Positive? (test code = No No 3311975266) Lab Interpretation (test code = Normal 83915-2) [facility] [id number] 16:18:19 Test Item Value Reference Range Interpretation Comments TROPONIN I (test 0.397 ng/mL See_Comment H [Automated code = 9170118248) message] The system which generated this result [...] ? Lab Interpretation Abnormal (test code = 42539-9) [facility] [id number] 16:18:19 Test Item Value Reference Range Interpretation Comments TROPONIN I (test 0.397 ng/mL See_Comment H [Automated code = 1945180863) message] The system which generated this result [...] ? Lab Interpretation Abnormal (test code = 00218-6) [facility] [id number] 16:18:19 Test Item Value Reference Range Interpretation Comments TROPONIN I (test 0.397 ng/mL See_Comment H [Automated code = 0120916221) message] The system which generated this result [...] ? Lab Interpretation Abnormal (test code = 60221-9) [facility] (NA, K, CL, CO2, GLUCOSE, BUN, CREATININE, CA)2020-10-29 16:17:03 Test Item Value Reference Range Interpretation Comments NA (test code = 152 mmol/L 135-145 H 6572955165) K (test code = 4.2 mmol/L 3.5-5.0 9408262571) CL (test code = 124 mmol/L 98-108 H 9594922436) CO2 TOTAL (test code = 21 mmol/L 23-31 L 3626293584) AGAP (test code = 2-16 0958864173) BUN (test code = 49 mg/dL 7-23 H 1455278844) GLUCOSE (test code = 173 mg/dL 70-110 H 0734429399) CREATININE (test code = 1.34 mg/dL 0.60-1.25 H 6513907312) CALCIUM (test code = 8.8 mg/dL 8.6-10.6 2591084421) eGFR (test code = mL/min/1.73m2 7651945564) JUAN LUIS (test code = JUAN LUIS) [...] tests). Lab Interpretation Abnormal (test code = 91489-3) [facility] 15:37:55 Test Item Value Reference Range Interpretation Comments APTT Patient (test code See_Comment L [Au tomated message] = 3173-2) The system [employer] generated this result transmitted ref erence range: 26 - 36 Seconds. The reference range was not used to int erpret this result as normal/abnormal . Lab Interpretation (test Abnormal code = 64355-6) [facility] [id number] 14:00:01 Test Item Value Reference Range Interpretation Comments URINE CULTURE (test No aerobic growth (< code = 630-4) 1000 CFU/mL) [facility]2020-10-29 12:55:31 Test Item Value Reference Range Interpretation Comments POCT GLU (test code = 9890690529) 185 mg/dL 70-110 H Lab Interpretation (test code = Abnormal 46515-1) [facility] BONE [id number] 11:47:44 Metallic linear foreign body over the [...] left ring finger metacarpalconsidered safe for MR imaging.[facility] AustinXR BONE [id number] 11:47:44 Metallic linear foreign body over the [...] level of the lateral right radiocarpal joint. Sd[facility], Radiant Results Inft User - 10/29/2020 6:48 [...] left ring finger metacarpalconsidered safe for MR imaging.[facility] BONE [id number] 11:47:44 Metallic linear foreign body over the [...] level of the lateral right radiocarpal joint. [facility], Radiant Results Inft User - 10/29/2020 6:48 [...] left ring finger metacarpalconsidered safe for MR imaging.[facility] [id number] 08:59:20 Test Item Value Reference Range Interpretation Comments TROPONIN I (test 0.426 ng/mL See_Comment H [Automated code = 2269493817) message] The system which generated this result [...] ? Lab Interpretation Abnormal (test code = 15127-9) [facility] WITH [id number] 08:54:03 Test Item Value Reference Range Interpretation [...] (test code = 59.0 fL 38.5-51.6 H 62057-9) RDW-CV (test code = 22.5 % 12.1-15.4 H 788-0) PLT (test code = See_Comment L [Automated 777-3) message] The sy stem which generated this result transmitted reference range : 150 - 328 10*3/ ?L. The reference r christine was not used to interpret this result as normal/abnormal . MPV (test code = 11.2 fL 9.8-13.0 77019-9) IPF % (test code = 2.4 % 1.2-10.7 Platelet count 3958684653) measured by fluorescence method. NRBC/100 WBC (test See_Comment [Automat ed code = 0714434489) message] The system which generated this result transmitted reference range : 0.0 - 10.0 /100 WBCs. The refer ence range was not u sed to interpret th is result as normal/abnormal . NRBC x10^3 (test code <0.01 See_Comment [Auto mated = 5579718572) message] The s ystem which generated this result transmitted reference range : 10*3/?L. The reference range was not used to interpret this result as normal/abnormal . GRAN MAT (NEUT) % 76.4 % (test code = 770-8) IMM GRAN % (test code 3.00 % = 4811685393) LYMPH % (test code = 10.3 % 736-9) MONO % (test code = 9.1 % 5905-5) EOS % (test code = 0.8 % 713-8) BASO % (test code = 0.4 % 706-2) GRAN MAT x10^3(ANC) 9.02 10*3/uL 1.99-6.95 H (test code = 2707096318) IMM GRAN x10^3 (test 0.36 10*3/uL 0.00-0.06 H code = 0935309123) LYMPH x10^3 (test code 1.22 10*3/uL 1.09-3.23 = 731-0) MONO x10^3 (test code 1.08 10*3/uL 0.36-1.02 H = 742-7) EOS x10^3 (test code = 0.10 10*3/uL 0.06-0.53 711-2) BASO x10^3 (test code 0.05 10*3/uL 0.01-0.09 = 704-7) SCHISTOCYTES (test 1+ A code = 800-3) Lab Interpretation Abnormal (test code = 40270-0) [facility] (NA, K, CL, CO2, GLUCOSE, BUN, CREATININE, CA)2020-10-29 08:46:24 Test Item Value Reference Range Interpretation Comments NA (test code = 155 mmol/L 135-145 H 8085961088) K (test code = 4.4 mmol/L 3.5-5.0 1561270804) CL (test code = 126 mmol/L 98-108 H 5103936883) CO2 TOTAL (test code = 22 mmol/L 23-31 L 3859451404) AGAP (test code = 2-16 8833338289) BUN (test code = 50 mg/dL 7-23 H 5739455385) GLUCOSE (test code = 177 mg/dL 70-110 H 0545198026) CREATININE (test code = 1.29 mg/dL 0.60-1.25 H 2334617244) CALCIUM (test code = 8.6 mg/dL 8.6-10.6 4077229719) eGFR (test code = mL/min/1.73m2 3510499766) JUAN LUIS (test code = JUAN LUIS) [...] tests). Lab Interpretation Abnormal (test code = 60660-1) [facility] GLUCOSE (AUTOMATED)2020-10-29 07:10:56 Test Item Value Reference Range Interpretation Comments POCT GLU (test code = 3623895389) 175 mg/dL 70-110 H Lab Interpretation (test code = Abnormal 88995-1) [facility] [id number] 04:16:10 Test Item Value Reference Range Interpretation Comments TROPONIN I (test 0.454 ng/mL See_Comment H [Automated code = 9716982738) message] The system which generated this result [...] ? Lab Interpretation Abnormal (test code = 38494-7) [facility] WITH [id number] 04:14:28 Test Item Value Reference Range Interpretation Comments WBC (test code = See_Comment H [Automated 8590-2) message] The sy stem which generated this result transmitted reference range : 4.20 - 10.70 10*3/?L. The reference range was not used to interpret this result as normal/abnormal . RBC (test code = See_Comment L [Automated 989-8) message] The sy stem which generated this [...] (test code = 57.0 fL 38.5-51.6 H 13660-1) RDW-CV (test code = 22.1 % 12.1-15.4 H 788-0) PLT (test code = See_Comment L [Automated 777-3) message] The sy stem which generated this result transmitted reference range : 150 - 328 10*3/ ?L. The reference r christine was not used to interpret this result as normal/abnormal . MPV (test code = Not Measure d 60643-5) IPF % (test code = 2.1 % 1.2-10.7 Platelet count 1662829116) measured by fluorescence method. NRBC/100 WBC (test See_Comment [Automat ed code = 3098335847) message] The system which generated this result transmitted reference range : 0.0 - 10.0 /100 WBCs. The refer ence range was not u sed to interpret th is result as normal/abnormal . NRBC x10^3 (test code <0.01 See_Comment [Auto mated = 8831983766) message] The s ystem which generated this result transmitted reference range : 10*3/?L. The reference range was not used to interpret this result as normal/abnormal . GRAN MAT (NEUT) % 74.8 % (test code = 770-8) IMM GRAN % (test code 2.80 % = 7331297609) LYMPH % (test code = 10.9 % 736-9) MONO % (test code = 10.4 % 5905-5) EOS % (test code = 0.7 % 713-8) BASO % (test code = 0.4 % 706-2) GRAN MAT x10^3(ANC) 8.42 10*3/uL 1.99-6.95 H (test code = 7866690623) IMM GRAN x10^3 (test 0.31 10*3/uL 0.00-0.06 H code = 7553890849) LYMPH x10^3 (test code 1.23 10*3/uL 1.09-3.23 = 731-0) MONO x10^3 (test code 1.17 10*3/uL 0.36-1.02 H = 742-7) EOS x10^3 (test code = 0.08 10*3/uL 0.06-0.53 711-2) BASO x10^3 (test code 0.04 10*3/uL 0.01-0.09 = 704-7) BASO STIPPLING (test Present A code = 703-9) SCHISTOCYTES (test 1+ A code = 800-3) Lab Interpretation Abnormal (test code = 71196-2) [facility] METABOLIC PANEL (NA, K, CL, CO2, GLUCOSE, BUN, CREATININE, CA)2020-10-29 04:00:13 Test Item Value Reference Range Interpretation Comments NA (test code = 154 mmol/L 135-145 H 8549984235) K (test code = 3.0 mmol/L 3.5-5.0 L 2655497568) CL (test code = 125 mmol/L 98-108 H 3518474474) CO2 TOTAL (test code = 20 mmol/L 23-31 L 4916687574) AGAP (test code = 2-16 2032358691) BUN (test code = 50 mg/dL 7-23 H 7421865080) GLUCOSE (test code = 144 mg/dL 70-110 H 4741627402) CREATININE (test code = 1.36 mg/dL 0.60-1.25 H 8435462357) CALCIUM (test code = 8.8 mg/dL 8.6-10.6 3917463292) eGFR (test code = mL/min/1.73m2 6912494649) JUAN LUIS (test code = JUAN LUIS) [...] tests). Lab Interpretation Abnormal (test code = 73377-1) [facility] 03:58:47 Test Item Value Reference Range Interpretation Comments MAGNESIUM (test code = 6059238659) 2.5 mg/dL 1.7-2.4 H Lab Interpretation (test code = Abnormal 50684-8) [facility]2020-10-29 03:58:47 Test Item Value Reference Range Interpretation Comments POCT GLU (test code = 4511558436) 134 mg/dL 70-110 H Lab Interpretation (test code = Abnormal 53534-7) [facility] 03:39:08 Test Item Value Reference Range Interpretation Comments Fibrinogen (test code = 1884366528) 441 mg/dL 167-453 Lab Interpretation (test code = Normal 06837-7) [facility]-17 03:39:08 Test Item Value Reference Range Interpretation Comments Fibrinogen (test code = 6686379729) 441 mg/dL 167-453 Lab Interpretation (test code = Normal 35961-3) [facility] AustinPROTHROMBIN [facility] / [id number] 03:39:08 Test Item Value Reference Range Interpretation [...] tions. Lab Interpretation (test Abnormal code = 92578-8) [facility] 03:39:08 Test Item Value Reference Range Interpretation Comments Fibrinogen (test code = 7909417232) 441 mg/dL 167-453 Lab Interpretation (test code = Normal 29432-6) [facility] PAN[facility] + LACTIC [id number] 03:20:11 Test Item Value Reference Range Interpretation Comments PH (test code = 2) 7.35-7.45 H PCO2 (test code = See_Comment L [Automat ed 6714778786) message] The sy stem which generated this result transmitted reference range : 35 - 45 mmHg. The reference range was not used to interpret this result as normal/abnormal . PO2 (test code = See_Comment H [Automated 1364428517) message] The sy stem which generated this result transmitted reference range : 80 - 100 mmHg. The reference range was not used to interpret this result as normal/abnormal . HCO3 (test code = See_Comment [Automate d 9642801247) message] The sy stem which generated this result transmitted reference range : 22 - 26 mEq/L. The reference range was not used to interpret this result as normal/abnormal . BE (test code = See_Comment [Automated 3391865164) message] The sy stem which generated this result transmitted reference range : -3.0 - 3.0 mEq/ L. The reference r christine was not used to interpret this result as normal/abnormal . THB (test code = 9.3 g/dL 13.5-18.0 L 7393327851) %O2HB (test code = 97.5 % 94.0-99.0 9555742716) %COHB ART (test code = 0.3 % 0.0-1.5 4206302330) %METHB ART (test code = 0.3 % 0.4-1.5 L 6619111538) VOL%O2 ART (test code = 12.9 % 15.0-23.0 L 9910321003) NA (test code = 152 mmol/L 135-145 H 8265599505) K+ (test code = 3.0 mmol/L 3.5-5.0 L 3074633657) AC CA IONZ (test code = 5.00 mg/dL 4.50-5.30 2212498925) GLUCOSE (test code = 142 mg/dL 70-110 H 5919731746) LACTIC ACID (test code 1.59 mmol/L 0.50-2.20 = 3665646106) Lab Interpretation Abnormal (test code = 73521-0) [facility] + LACTIC [id number] 03:20:11 Test Item Value Reference Range Interpretation Comments PH (test code = 2) 7.35-7.45 H PCO2 (test code = See_Comment L [Automat ed 1421864266) message] The sy stem which generated this result transmitted reference range : 35 - 45 mmHg. The reference range was not used to interpret this result as normal/abnormal . PO2 (test code = See_Comment H [Automated 9939036480) message] The sy stem which generated this result transmitted reference range : 80 - 100 mmHg. The reference range was not used to interpret this result as normal/abnormal . HCO3 (test code = See_Comment [Automate d 7094860438) message] The sy stem which generated this result transmitted reference range : 22 - 26 mEq/L. The reference range was not used to interpret this result as normal/abnormal . BE (test code = See_Comment [Automated 6142397049) message] The sy stem which generated this result transmitted reference range : -3.0 - 3.0 mEq/ L. The reference r christine was not used to interpret this result as normal/abnormal . THB (test code = 9.3 g/dL 13.5-18.0 L 3422627758) %O2HB (test code = 97.5 % 94.0-99.0 4759679275) %COHB ART (test code = 0.3 % 0.0-1.5 1457809759) %METHB ART (test code = 0.3 % 0.4-1.5 L 5459821352) VOL%O2 ART (test code = 12.9 % 15.0-23.0 L 5886547075) NA (test code = 152 mmol/L 135-145 H 5085002965) K+ (test code = 3.0 mmol/L 3.5-5.0 L 9642020532) AC CA IONZ (test code = 5.00 mg/dL 4.50-5.30 9535420605) GLUCOSE (test code = 142 mg/dL 70-110 H 7892178113) LACTIC ACID (test code 1.59 mmol/L 0.50-2.20 = 8442950719) Lab Interpretation Abnormal (test code = 14951-2) [facility] + LACTIC [id number] 03:20:11 Test Item Value Reference Range Interpretation Comments PH (test code = 2) 7.35-7.45 H PCO2 (test code = See_Comment L [Automat ed 8302950579) message] The sy stem which generated this result transmitted reference range : 35 - 45 mmHg. The reference range was not used to interpret this result as normal/abnormal . PO2 (test code = See_Comment H [Automated 6022508994) message] The sy stem which generated this result transmitted reference range : 80 - 100 mmHg. The reference range was not used to interpret this result as normal/abnormal . HCO3 (test code = See_Comment [Automate d 6789367929) message] The sy stem which generated this result transmitted reference range : 22 - 26 mEq/L. The reference range was not used to interpret this result as normal/abnormal . BE (test code = See_Comment [Automated 5262391816) message] The sy stem which generated this result transmitted reference range : -3.0 - 3.0 mEq/ L. The reference r christine was not used to interpret this result as normal/abnormal . THB (test code = 9.3 g/dL 13.5-18.0 L 2715521356) %O2HB (test code = 97.5 % 94.0-99.0 2081479231) %COHB ART (test code = 0.3 % 0.0-1.5 5734603195) %METHB ART (test code = 0.3 % 0.4-1.5 L 6749787628) VOL%O2 ART (test code = 12.9 % 15.0-23.0 L 1797260140) NA (test code = 152 mmol/L 135-145 H 8452983977) K+ (test code = 3.0 mmol/L 3.5-5.0 L 8656980403) AC CA IONZ (test code = 5.00 mg/dL 4.50-5.30 1925495261) GLUCOSE (test code = 142 mg/dL 70-110 H 1406260963) LACTIC ACID (test code 1.59 mmol/L 0.50-2.20 = 1550368078) Lab Interpretation Abnormal (test code = 51443-5) [facility] [id number] 03:20:06 No acute intracranial hemorrhage or mass [...] reviewed this study and agree with theabove report.[facility] [id number] 03:20:06 No acute intracranial hemorrhage or mass [...] reviewed this study and agree with theabove report.[facility] [id number] 03:20:06 No acute intracranial hemorrhage or mass [...] reviewed this study and agree with theabove report.[facility] GLUCOSE (AUTOMATED) 2020-10-29 01:10:09 Test Item Value Reference Range Interpretation Comments POCT GLU (test code = 8605994856) 178 mg/dL 70-110 H Lab Interpretation (test code = Abnormal 34443-2) [facility] GLUCOSE (AUTOMATED)2020-10-28 21:43:56 Test Item Value Reference Range Interpretation Comments POCT GLU (test code = 8686651255) 131 mg/dL 70-110 H Lab Interpretation (test code = Abnormal 15582-8) [facility]2020-10-28 16:37:06 Test Item Value Reference Range Interpretation Comments POCT GLU (test code = 0195438566) 345 mg/dL 70-110 H Lab Interpretation (test code = Abnormal 08884-8) [facility] 1 [id number] 15:26:11EXAM: XR CHEST 1 VW HISTORY: COUGH [...] tube passes through the thorax and into thestomach.[facility] + LACTIC [id number] 13:57:21 Test Item Value Reference Range Interpretation Comments PH (test code = 2) 7.35-7.45 H PCO2 (test code = See_Comment L [Automat ed 3136453873) message] The sy stem which generated this result transmitted reference range : 35 - 45 mmHg. The reference range was not used to interpret this result as normal/abnormal . PO2 (test code = See_Comment L [Automated 8680502765) message] The sy stem which generated this result transmitted reference range : 80 - 100 mmHg. The reference range was not used to interpret this result as normal/abnormal . HCO3 (test code = See_Comment L [Automate d 5304854320) message] The sy stem which generated this result transmitted reference range : 22 - 26 mEq/L. The reference range was not used to interpret this result as normal/abnormal . BE (test code = See_Comment L [Automated 0497317876) message] The sy stem which generated this result transmitted reference range : -3.0 - 3.0 mEq/ L. The reference r christine was not used to interpret this result as normal/abnormal . THB (test code = 10.2 g/dL 13.5-18.0 L 3228031604) %O2HB (test code = 89.8 % 94.0-99.0 L 8074628587) %COHB ART (test code = 0.3 % 0.0-1.5 3334500794) %METHB ART (test code = 0.3 % 0.4-1.5 L 9971743196) VOL%O2 ART (test code = 12.9 % 15.0-23.0 L 4410489138) NA (test code = 151 mmol/L 135-145 H 5320986650) K+ (test code = 3.7 mmol/L 3.5-5.0 4215724548) AC CA IONZ (test code = 5.10 mg/dL 4.50-5.30 6264570011) GLUCOSE (test code = 359 mg/dL 70-110 H 2684130687) LACTIC ACID (test code 1.43 mmol/L 0.50-2.20 = 0058695822) Lab Interpretation Abnormal (test code = 53987-6) [facility] GLUCOSE (AUTOMATED)2020-10-28 13:45:52 Test Item Value Reference Range Interpretation Comments POCT GLU (test code = 2144863469) 355 mg/dL 70-110 H Lab Interpretation (test code = Abnormal 55056-6) [facility] GLUCOSE (AUTOMATED)2020-10-28 13:18:15 Test Item Value Reference Range Interpretation Comments POCT GLU (test code = 6626078499) 322 mg/dL 70-110 H Lab Interpretation (test code = Abnormal 34603-6) [facility] GLUCOSE (AUTOMATED)2020-10-28 10:42:20 Test Item Value Reference Range Interpretation Comments POCT GLU (test code = 5329983488) 303 mg/dL 70-110 H Lab Interpretation (test code = Abnormal 53187-7) [facility] [id number] 08:53:59 Test Item Value Reference Range Interpretation Comments TROPONIN I (test 0.352 ng/mL See_Comment H [Automated code = 8812860442) message] The system which generated this result [...] ? Lab Interpretation Abnormal (test code = 32646-7) [facility] (NA, K, CL, CO2, GLUCOSE, BUN, CREATININE, CA)2020-10-28 08:42:28 Test Item Value Reference Range Interpretation Comments NA (test code = 151 mmol/L 135-145 H 9901021874) K (test code = 3.6 mmol/L 3.5-5.0 1933201147) CL (test code = 125 mmol/L 98-108 H 4544490711) CO2 TOTAL (test code = 20 mmol/L 23-31 L 6626251684) AGAP (test code = 2-16 3848109238) BUN (test code = 50 mg/dL 7-23 H 3633699410) GLUCOSE (test code = 303 mg/dL 70-110 H 0120829447) CREATININE (test code = 1.25 mg/dL 0.60-1.25 0136828950) CALCIUM (test code = 9.1 mg/dL 8.6-10.6 5853583867) eGFR (test code = mL/min/1.73m2 3949100656) JUAN LUIS (test code = JUAN LUIS) [...] tests). Lab Interpretation Abnormal (test code = 33299-2) [facility] WITHOUT [id number] 08:18:28 Test Item Value Reference Range Interpretation Comments WBC (test code = See_Comment [Automated message] 6690-2) The system [employer] generated this result transmitted ref erence range: 4.20 - 1 0.70 10*3/?L. The reference range was not used to int erpret this result as normal/abnormal . RBC (test code = 789-8) See_Comment L [Au tomated message] The system [employer] generated this result transmitted ref erence range: [...] 777-3) See_Comment [Au tomated message] The system [employer] generated this result transmitted ref erence range: 150 - 32 8 10*3/?L. The reference range was not used to int erpret this result as normal/abnormal . MPV (test code = 12.0 fL 9.8-13.0 18712-4) RDW-CV (test code = 22.0 % 12.1-15.4 H 788-0) RDW-SD (test code = 56.7 fL 38.5-51.6 H 27772-9) NRBC x10^3 (test code = <0.01 See_Comment [Au tomated message] 7787344117) The system [employer] generated this result transmitted ref erence range: 10*3/?L. The reference range was not used to int erpret this result as normal/abnormal . NRBC/100 WBC (test code See_Comment [Au tomated message] = 3054158942) The system [facility] generated this result transmitted ref erence range: 0.0 - 10 .0 /100 WBCs. The reference range was not used to int erpret this result as normal/abnormal . IPF % (test code = 1.6 % 1.2-10.7 Platelet count 0186131947) measured by fluorescence me thod. Lab Interpretation Abnormal (test code = 59810-4) [facility] GLUCOSE (AUTOMATED)2020-10-28 07:38:54 Test Item Value Reference Range Interpretation Comments POCT GLU (test code = 8582135427) 302 mg/dL 70-110 H Lab Interpretation (test code = Abnormal 03231-1) [facility] GLUCOSE (AUTOMATED)2020-10-28 04:16:52 Test Item Value Reference Range Interpretation Comments POCT GLU (test code = 8396684537) 306 mg/dL 70-110 H Lab Interpretation (test code = Abnormal 67108-1) [facility] CULTURE [id number] 03:01:27 Test Item Value Reference Range Interpretation Comments Blood Culture-Aerobic No organisms No growth Previo us (test code = 96654-6) isolated prelim inary verified result was Culture [...] Culture-Anaerobic isolated preliminar y (test code = 24016-2) verifi ed result was Culture In Progress [...] CDT Lab Interpretation Normal (test code = 39986-4) [facility] CULTURE [id number] 03:01:27 Test Item Value Reference Range Interpretation Comments Blood Culture-Aerobic No organisms No growth Previo us (test code = 67533-1) isolated prelim inary verified result was Culture [...] Culture-Anaerobic isolated preliminar y (test code = 24002-9) verifi ed result was Culture In Progress [...] CDT Lab Interpretation Normal (test code = 54069-7) [id number] 02:04:19 Test Item Value Reference Range Interpretation Comments TROPONIN I (test 0.236 ng/mL See_Comment H [Automated code = 7842617763) message] The system which generated this result [...] ? Lab Interpretation Abnormal (test code = 43779-6) [facility]2020-[facility]-28 01:29:26 Test Item Value Reference Range Interpretation Comments POCT GLU (test code = 3191921727) 262 mg/dL 70-110 H Lab Interpretation (test code = Abnormal 86774-0) [facility] (NA, K, CL, CO2, GLUCOSE, BUN, CREATININE, CA)2020-10-27 22:22:07 Test Item Value Reference Range Interpretation Comments NA (test code = 151 mmol/L 135-145 H 7016250661) K (test code = 3.2 mmol/L 3.5-5.0 L 9845710394) CL (test code = 124 mmol/L 98-108 H 0174147077) CO2 TOTAL (test code = 20 mmol/L 23-31 L 0051764946) AGAP (test code = 2-16 1123910030) BUN (test code = 49 mg/dL 7-23 H 4862904979) GLUCOSE (test code = 271 mg/dL 70-110 H 6831590465) CREATININE (test code = 1.24 mg/dL 0.60-1.25 8913759896) CALCIUM (test code = 8.7 mg/dL 8.6-10.6 3225335634) eGFR (test code = mL/min/1.73m2 3757821061) JUAN LUIS (test code = JUAN LUIS) [...] tests). Lab Interpretation Abnormal (test code = 42183-9) [facility] GLUCOSE (AUTOMATED)2020-10-27 21:31:54 Test Item Value Reference Range Interpretation Comments POCT GLU (test code = 9470170308) 308 mg/dL 70-110 H Lab Interpretation (test code = Abnormal 32714-9) [facility] GLUCOSE (AUTOMATED)2020-10-27 19:14:20 Test Item Value Reference Range Interpretation Comments POCT GLU (test code = 8987187941) 281 mg/dL 70-110 H Lab Interpretation (test code = Abnormal 62521-2) [facility] GLUCOSE (AUTOMATED)2020-10-27 16:11:09 Test Item Value Reference Range Interpretation Comments POCT GLU (test code = 6644990813) 278 mg/dL 70-110 H Lab Interpretation (test code = Abnormal 48353-8) [facility] - To confirm Dobhoff / [...] of the abdomen and pelvis were obtained. [facility], Radiant Results Inft User - 10/27/2020 [...] reviewed this study and agree with theabove report.[facility] Abdominal 1 View - To confirm Dobhoff [...] of the abdomen and pelvis were obtained. [facility], Radiant Results Inft User - 10/27/2020 10:25 [...] reviewed this study and agree with theabove report.[facility] - To confirm Dobhoff / [...] reviewed this study and agree with theabove report.[facility] WITH [id number] 14:56:09 Test Item Value Reference Range Interpretation [...] (test code = 59.0 fL 38.5-51.6 H 22071-6) RDW-CV (test code = 21.9 % 12.1-15.4 H 788-0) PLT (test code = See_Comment [Automated 777-3) message] The sy stem which generated this result transmitted reference range : 150 - 328 10*3/ ?L. The reference r christine was not used to interpret this result as normal/abnormal . MPV (test code = 11.7 fL 9.8-13.0 66669-3) IPF % (test code = 2.6 % 1.2-10.7 Platelet count 9170031195) measured by fluorescence method. NRBC/100 WBC (test See_Comment [Automat ed code = 4532105776) message] The system which generated this result transmitted reference range : 0.0 - 10.0 /100 WBCs. The refer ence range was not u sed to interpret th is result as normal/abnormal . NRBC x10^3 (test code <0.01 See_Comment [Auto mated = 3475860079) message] The s ystem which generated this result transmitted reference range : 10*3/?L. The reference range was not used to interpret this result as normal/abnormal . GRAN MAT (NEUT) % 73.4 % (test code = 770-8) IMM GRAN % (test code 4.90 % = 5185783160) LYMPH % (test code = 6.7 % 736-9) MONO % (test code = 14.3 % 5905-5) EOS % (test code = 0.4 % 713-8) BASO % (test code = 0.3 % 706-2) GRAN MAT x10^3(ANC) 8.45 10*3/uL 1.99-6.95 H (test code = 7459560071) IMM GRAN x10^3 (test 0.57 10*3/uL 0.00-0.06 H code = 7390126796) LYMPH x10^3 (test code 0.77 10*3/uL 1.09-3.23 [...] 800-3) Lab Interpretation Abnormal (test code = 99579-5) [facility]2020-[facility]-27 12:58:08 Test Item Value Reference Range Interpretation Comments POCT GLU (test code = 9823577434) 381 mg/dL 70-110 H Lab Interpretation (test code = Abnormal 39509-7) [facility] [id number] 11:41:52 Test Item Value Reference Range Interpretation Comments TROPONIN I (test 0.229 ng/mL See_Comment H [Automated code = 8944909096) message] The system which generated this result [...] ? Lab Interpretation Abnormal (test code = 93603-8) [facility] (NA, K, CL, CO2, GLUCOSE, BUN, CREATININE, CA)2020-10-27 11:41:31 Test Item Value Reference Range Interpretation Comments NA (test code = 149 mmol/L 135-145 H 7980561117) K (test code = 4.2 mmol/L 3.5-5.0 Slight 8992495167) hemolysis CL (test code = 122 mmol/L 98-108 H 1602669781) CO2 TOTAL (test code 17 mmol/L 23-31 L = 2739881095) AGAP (test code = 2-16 7695704619) BUN (test code = 52 mg/dL 7-23 H Slight 9034546470) hemolysis GLUCOSE (test code = 346 mg/dL 70-110 H 9664282407) CREATININE (test code 1.21 mg/dL 0.60-1.25 = 3501138335) CALCIUM (test code = 8.5 mg/dL 8.6-10.6 L 7364394894) eGFR (test code = mL/min/1.73m2 3798817215) JUAN LUIS (test code = JUAN LUIS) [...] tests). Lab Interpretation Abnormal (test code = 84717-3) [facility] [id number] 05:53:41 Test Item Value Reference Range Interpretation Comments TROPONIN I (test 0.163 ng/mL See_Comment H [Automated code = 4752271923) message] The system which generated this result [...] ? Lab Interpretation Abnormal (test code = 18178-4) [facility] (NA, K, CL, CO2, GLUCOSE, BUN, CREATININE, CA)2020-10-27 05:39:56 Test Item Value Reference Range Interpretation Comments NA (test code = 152 mmol/L 135-145 H 4380796846) K (test code = 3.9 mmol/L 3.5-5.0 0532702309) CL (test code = 123 mmol/L 98-108 H 6193635124) CO2 TOTAL (test code = 13 mmol/L 23-31 L 7488741318) AGAP (test code = 2-16 4832227100) BUN (test code = 52 mg/dL 7-23 H 9948012260) GLUCOSE (test code = 284 mg/dL 70-110 H 1460823725) CREATININE (test code = 1.31 mg/dL 0.60-1.25 H 2724942676) CALCIUM (test code = 8.6 mg/dL 8.6-10.6 0003828149) eGFR (test code = mL/min/1.73m2 5026067354) JUAN LUIS (test code = JUAN LUIS) [...] tests). Lab Interpretation Abnormal (test code = 49187-3) [facility] GLUCOSE (AUTOMATED)2020-10-27 03:12:41 Test Item Value Reference Range Interpretation Comments POCT GLU (test code = 9957773201) 253 mg/dL 70-110 H Lab Interpretation (test code = Abnormal 75606-0) [facility] METABOLIC PANEL (NA, K, CL, CO2, GLUCOSE, BUN, CREATININE, CA)2020-10-26 23:37:44 Test Item Value Reference Range Interpretation Comments NA (test code = 152 mmol/L 135-145 H 5219579546) K (test code = 4.1 mmol/L 3.5-5.0 2418734350) CL (test code = 123 mmol/L 98-108 H 6341549865) CO2 TOTAL (test code = 11 mmol/L 23-31 L 3235170158) AGAP (test code = 2-16 H 0896494771) BUN (test code = 54 mg/dL 7-23 H 2170297753) GLUCOSE (test code = 193 mg/dL 70-110 H 0994102151) CREATININE (test code = 1.41 mg/dL 0.60-1.25 H 1115538547) CALCIUM (test code = 9.1 mg/dL 8.6-10.6 2264312744) eGFR (test code = mL/min/1.73m2 8487058773) JUAN LUIS (test code = JUAN LUIS) [...] tests). Lab Interpretation Abnormal (test code = 83068-8) [facility] GLUCOSE (AUTOMATED)2020-10-26 21:41:08 Test Item Value Reference Range Interpretation Comments POCT GLU (test code = 8646315050) 204 mg/dL 70-110 H Lab Interpretation (test code = Abnormal 33271-8) [facility] ABDOMEN PELVIS W [id number] 17:26:11 1. 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 [facility], Radiant Results Inft User - 10/26/2020 12:27 PM CDTEXAM: CT CHEST, ABDOMEN AND PELVIS WITHOUT CONTRAST, CONSULTATION OUTSIDEHISTORY: 65 years -old Male with uti - shock COMPARISON: None, correlation with CT abdomen pelvis with and withoutcontrast from 09/20/2017TECHNIQUE: CT examination acquisition dated 10/22/2020 from [facility], labeled with the patients name, was submitted [...] reviewed this study and agree with the abovereport.[facility] W [id number] 17:26:11 1. 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 [facility], Radiant Results Inft User - 11/08/2020 9:47 AM CDTEXAM: CT CHEST, ABDOMEN AND PELVIS WITHOUT CONTRAST, CONSULTATION OUTSIDEHISTORY: 65 years -old Male with uti - shock COMPARISON: None, correlation with CT abdomen pelvis with and withoutcontrast from 09/20/2017TECHNIQUE: CT examination acquisition dated 10/22/2020 from [facility], labeled with the patients name, was submitted [...] reviewed this study and agree with the abovereport.[facility] PEL[facility] W [id number] 17:26:11 1. 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 [facility], Radiant Results Inft User - 11/08/2020 9:47 AM CDTEXAM: CT CHEST, ABDOMEN AND PELVIS WITHOUT CONTRAST, CONSULTATION OUTSIDEHISTORY: 65 years -old Male with uti - shock COMPARISON: None, correlation with CT abdomen pelvis with and withoutcontrast from 09/20/2017TECHNIQUE: CT examination acquisition dated 10/22/2020 from [facility], labeled with the patients name, was submitted [...] reviewed this study and agree with the abovereport.[facility] GLUCOSE (AUTOMATED)2020-10-26 16:56:22 Test Item Value Reference Range Interpretation Comments POCT GLU (test code = 4838478553) 179 mg/dL 70-110 H Lab Interpretation (test code = Abnormal 09453-9) [facility] GLUCOSE (AUTOMATED)2020-10-26 13:03:19 Test Item Value Reference Range Interpretation Comments POCT GLU (test code = 9699383152) 164 mg/dL 70-110 H Lab Interpretation (test code = Abnormal 26333-7) [facility] [id number] 09:45:42 Test Item Value Reference Range Interpretation Comments TROPONIN I (test 0.120 ng/mL See_Comment H [Automated code = 3264785171) message] The system which generated this result [...] ? Lab Interpretation Abnormal (test code = 39187-9) [facility] WITH [id number] 09:41:39 Test Item Value Reference Range Interpretation Comments WBC (test code = See_Comment H [Automated 1390-2) message] The sy stem which [...] (test code = 58.0 fL 38.5-51.6 H 87287-3) RDW-CV (test code = 21.2 % 12.1-15.4 H 788-0) PLT (test code = See_Comment [Automated 777-3) message] The sy stem which generated this result transmitted reference range : 150 - 328 10*3/ ?L. The reference r christine was not used to interpret this result as normal/abnormal . MPV (test code = 12.3 fL 9.8-13.0 45021-5) IPF % (test code = 2.6 % 1.2-10.7 Platelet count 5414391286) measured by fluorescence method. NRBC/100 WBC (test See_Comment [Automat ed code = 6413992449) message] The system which generated this result transmitted reference range : 0.0 - 10.0 /100 WBCs. The refer ence range was not u sed to interpret th is result as normal/abnormal . NRBC x10^3 (test code See_Comment [Auto mated = 1617979620) message] The s ystem which generated this result transmitted reference range : 10*3/?L. The reference range was not used to interpret this result as normal/abnormal . GRAN MAT (NEUT) % 84.2 % (test code = 770-8) IMM GRAN % (test code 2.50 % = 4938387022) LYMPH % (test code = 4.7 % 736-9) MONO % (test code = 8.1 % 5905-5) EOS % (test code = 0.1 % 713-8) BASO % (test code = 0.4 % 706-2) GRAN MAT x10^3(ANC) 13.91 10*3/uL 1.99-6.95 H (test code = 3392325121) IMM GRAN x10^3 (test 0.42 10*3/uL 0.00-0.06 H code = 6071665565) LYMPH x10^3 (test 0.77 10*3/uL 1.09-3.23 L code = 731-0) MONO x10^3 (test code 1.33 10*3/uL 0.36-1.02 H = 742-7) EOS x10^3 (test code <0.03 0.06-0.53 L = 711-2) BASO x10^3 (test code 0.06 10*3/uL 0.01-0.09 = 704-7) BASO STIPPLING (test Present A code = 703-9) YVES CELLS (test code 2+ See_Comment A [Auto mated = 3437-) message] The sy stem which generated this result transmitted reference range : (none). The reference range was not used to interpret this result as normal/abnormal . SCHISTOCYTES (test 1+ A code = 800-3) Lab Interpretation Abnormal (test code = 50637-2) [facility] METABOLIC PANEL (NA, K, CL, CO2, GLUCOSE, BUN, CREATININE, CA)2020-10-26 09:35:35 Test Item Value Reference Range Interpretation Comments NA (test code = 151 mmol/L 135-145 H 5949446131) K (test code = 3.6 mmol/L 3.5-5.0 5520464642) CL (test code = 121 mmol/L 98-108 H 3414644812) CO2 TOTAL (test code = 15 mmol/L 23-31 L 1045893049) AGAP (test code = 2-16 6959380341) BUN (test code = 57 mg/dL 7-23 H 2570789212) GLUCOSE (test code = 168 mg/dL 70-110 H 9545311574) CREATININE (test code = 1.46 mg/dL 0.60-1.25 H 9424738706) CALCIUM (test code = 9.1 mg/dL 8.6-10.6 1251847126) eGFR (test code = mL/min/1.73m2 5839885393) JUAN LUIS (test code = JUAN LUIS) [...] tests). Lab Interpretation Abnormal (test code = 55423-9) [facility] 09:32:43 Test Item Value Reference Range Interpretation Comments MAGNESIUM (test code = 9014705350) 2.3 mg/dL 1.7-2.4 Lab Interpretation (test code = Normal 11379-2) [facility] [id number] 02:54:02 Test Item Value Reference Range Interpretation Comments TROPONIN I (test 0.117 ng/mL See_Comment H [Automated code = 4389651430) message] The system which generated this result [...] ? Lab Interpretation Abnormal (test code = 58251-1) [facility] GLUCOSE (AUTOMATED)2020-10-26 02:34:02 Test Item Value Reference Range Interpretation Comments POCT GLU (test code = 1548271476) 193 mg/dL 70-110 H Lab Interpretation (test code = Abnormal 74946-7) [facility] GLUCOSE (AUTOMATED)2020-10-25 23:37:15 Test Item Value Reference Range Interpretation Comments POCT GLU (test code = 3989249533) 166 mg/dL 70-110 H Lab Interpretation (test code = Abnormal 20178-6) [facility] [id number] 20:45:53 Test Item Value Reference Range Interpretation Comments TROPONIN I (test 0.136 ng/mL See_Comment H [Automated code = 7062852922) message] The system which generated this result [...] ? Lab Interpretation Abnormal (test code = 04844-3) [facility]21-[facility] 20:27:09 Test Item Value Reference Range Interpretation Comments MAGNESIUM (test code = 1784842982) 2.3 mg/dL 1.7-2.4 Lab Interpretation (test code = Normal 08232-9) [facility] (NA, K, CL, CO2, GLUCOSE, BUN, CREATININE, CA)2020-10-25 20:06:41 Test Item Value Reference Range Interpretation Comments NA (test code = 147 mmol/L 135-145 H 4543694348) K (test code = 3.8 mmol/L 3.5-5.0 6906971549) CL (test code = 118 mmol/L 98-108 H 8593113941) CO2 TOTAL (test code = 15 mmol/L 23-31 L 9798836968) AGAP (test code = 2-16 7325181437) BUN (test code = 61 mg/dL 7-23 H 8865958558) GLUCOSE (test code = 174 mg/dL 70-110 H 3097978902) CREATININE (test code = 1.59 mg/dL 0.60-1.25 H 0612939659) CALCIUM (test code = 9.3 mg/dL 8.6-10.6 8493295054) eGFR (test code = mL/min/1.73m2 2020134185) JUAN LUIS (test code = JUAN LUIS) [...] tests). Lab Interpretation Abnormal (test code = 18222-8) [facility] + LACTIC [id number] 19:54:16 Test Item Value Reference Range Interpretation Comments PH (test code = 2) 7.35-7.45 PCO2 (test code = See_Comment L [Automat ed 4464973986) message] The sy stem which generated this result transmitted reference range : 35 - 45 mmHg. The reference range was not used to interpret this result as normal/abnormal . PO2 (test code = See_Comment [Automated 1387501073) message] The sy stem which generated this result transmitted reference range : 80 - 100 mmHg. The reference range was not used to interpret this result as normal/abnormal . HCO3 (test code = See_Comment L [Automate d 9197714415) message] The sy stem which generated this result transmitted reference range : 22 - 26 mEq/L. The reference range was not used to interpret this result as normal/abnormal . BE (test code = See_Comment L [Automated 3346233045) message] The sy stem which generated this result transmitted reference range : -3.0 - 3.0 mEq/ L. The reference r christine was not used to interpret this result as normal/abnormal . THB (test code = 10.0 g/dL 13.5-18.0 L 5622542092) %O2HB (test code = 96.5 % 94.0-99.0 9604923925) %COHB ART (test code = 0.2 % 0.0-1.5 0273837501) %METHB ART (test code = 0.3 % 0.4-1.5 L 6966865790) VOL%O2 ART (test code = 13.7 % 15.0-23.0 L 7737216441) NA (test code = 149 mmol/L 135-145 H 0435434729) K+ (test code = 3.8 mmol/L 3.5-5.0 2646224834) AC CA IONZ (test code = 5.20 mg/dL 4.50-5.30 1722205252) GLUCOSE (test code = 178 mg/dL 70-110 H 1976400697) LACTIC ACID (test code 1.36 mmol/L 0.50-2.20 = 1837785709) Lab Interpretation Abnormal (test code = 88657-7) [facility] + LACTIC [id number] 18:33:03 Test Item Value Reference Range Interpretation Comments PH (test code = 2) 7.35-7.45 L PCO2 (test code = See_Comment L [Automat ed 0590114065) message] The sy stem which generated this result transmitted reference range : 35 - 45 mmHg. The reference range was not used to interpret this result as normal/abnormal . PO2 (test code = See_Comment [Automated 4484259023) message] The sy stem which generated this result transmitted reference range : 80 - 100 mmHg. The reference range was not used to interpret this result as normal/abnormal . HCO3 (test code = See_Comment L [Automate d 1643130189) message] The sy stem which generated this result transmitted reference range : 22 - 26 mEq/L. The reference range was not used to interpret this result as normal/abnormal . BE (test code = See_Comment L [Automated 2799238733) message] The sy stem which generated this result transmitted reference range : -3.0 - 3.0 mEq/ L. The reference r christine was not used to interpret this result as normal/abnormal . THB (test code = 11.4 g/dL 13.5-18.0 L 9308600349) %O2HB (test code = 97.0 % 94.0-99.0 7992713741) %COHB ART (test code = 0.3 % 0.0-1.5 6774700562) %METHB ART (test code = 0.0 % 0.4-1.5 L 9817893668) VOL%O2 ART (test code = 15.7 % 15.0-23.0 5693750040) NA (test code = 147 mmol/L 135-145 H 7030701357) K+ (test code = 3.8 mmol/L 3.5-5.0 8034442438) AC CA IONZ (test code = 5.30 mg/dL 4.50-5.30 6280207608) GLUCOSE (test code = 173 mg/dL 70-110 H 2672564388) LACTIC ACID (test code 1.08 mmol/L 0.50-2.20 = 7771930555) Lab Interpretation Abnormal (test code = 88195-2) [facility]2020-[facility]-25 17:17:08 Test Item Value Reference Range Interpretation Comments POCT GLU (test code = 3599960713) 179 mg/dL 70-110 H Lab Interpretation (test code = Abnormal 25835-7) [facility] + LACTIC [id number] 15:31:09 Test Item Value Reference Range Interpretation Comments PH (test code = 2) 7.35-7.45 PCO2 (test code = See_Comment L [Automat ed 6622192049) message] The sy stem which generated this result transmitted reference range : 35 - 45 mmHg. The reference range was not used to interpret this result as normal/abnormal . PO2 (test code = See_Comment [Automated 7165893457) message] The sy stem which generated this result transmitted reference range : 80 - 100 mmHg. The reference range was not used to interpret this result as normal/abnormal . HCO3 (test code = See_Comment L [Automate d 8547618367) message] The sy stem which generated this result transmitted reference range : 22 - 26 mEq/L. The reference range was not used to interpret this result as normal/abnormal . BE (test code = See_Comment L [Automated 7556945157) message] The sy stem which generated this result transmitted reference range : -3.0 - 3.0 mEq/ L. The reference r christine was not used to interpret this result as normal/abnormal . THB (test code = 9.3 g/dL 13.5-18.0 L 3994437325) %O2HB (test code = 96.5 % 94.0-99.0 6251645661) %COHB ART (test code = 0.3 % 0.0-1.5 6443240871) %METHB ART (test code = 0.3 % 0.4-1.5 L 5656288006) VOL%O2 ART (test code = 12.8 % 15.0-23.0 L 5910747089) NA (test code = 144 mmol/L 135-145 7265481763) K+ (test code = 3.6 mmol/L 3.5-5.0 [id number]) AC CA IONZ (test code = 5.10 mg/dL 4.50-5.30 3844609274) GLUCOSE (test code = 177 mg/dL 70-110 H 3643918448) LACTIC ACID (test code 0.92 mmol/L 0.50-2.20 = 9076289017) Lab Interpretation Abnormal (test code = 87015-1) [facility] GLUCOSE (AUTOMATED)2020-10-25 12:43:51 Test Item Value Reference Range Interpretation Comments POCT GLU (test code = 4171117939) 213 mg/dL 70-110 H Lab Interpretation (test code = Abnormal 40506-8) [facility] WITH [id number] 10:09:26 Test Item Value Reference Range Interpretation [...] (test code = 56.3 fL 38.5-51.6 H 59958-1) RDW-CV (test code = 20.6 % 12.1-15.4 H 788-0) PLT (test code = See_Comment [Automated 777-3) message] The sy stem which generated this result transmitted reference range : 150 - 328 10*3/ ?L. The reference r christine was not used to interpret this result as normal/abnormal . MPV (test code = 12.6 fL 9.8-13.0 46971-7) IPF % (test code = 2.3 % 1.2-10.7 Platelet count 6961404493) measured by fluorescence method. NRBC/100 WBC (test See_Comment [Automat ed code = 7174228789) message] The system which generated this result transmitted reference range : 0.0 - 10.0 /100 WBCs. The refer ence range was not u sed to interpret th is result as normal/abnormal . NRBC x10^3 (test code See_Comment [Auto mated = 3020957159) message] The s ystem which generated this result transmitted reference range : 10*3/?L. The reference range was not used to interpret this result as normal/abnormal . GRAN MAT (NEUT) % 89.5 % (test code = 770-8) IMM GRAN % (test code 2.30 % = 3061433181) LYMPH % (test code = 3.9 % 736-9) MONO % (test code = 3.8 % 5905-5) EOS % (test code = 0.1 % 713-8) BASO % (test code = 0.4 % 706-2) GRAN MAT x10^3(ANC) 13.12 10*3/uL 1.99-6.95 H (test code = 6955740203) IMM GRAN x10^3 (test 0.34 10*3/uL 0.00-0.06 H code = 1179320329) LYMPH x10^3 (test 0.57 10*3/uL 1.09-3.23 L code = 731-0) MONO x10^3 (test code 0.56 10*3/uL 0.36-1.02 = 742-7) EOS x10^3 (test code <0.03 0.06-0.53 L = 711-2) BASO x10^3 (test code 0.06 10*3/uL 0.01-0.09 = 704-7) YVES CELLS (test code 2+ See_Comment A [Auto mated = 9939-9) message] The 0xdata stem which generated this result transmitted reference range : (none). The reference range was not used to interpret this result as normal/abnormal . SCHISTOCYTES (test 1+ A code = 800-3) Lab Interpretation Abnormal (test code = 68045-5) [facility] METABOLIC PANEL (NA, K, CL, CO2, GLUCOSE, BUN, CREATININE, CA)2020-10-25 09:03:31 Test Item Value Reference Range Interpretation Comments NA (test code = 147 mmol/L 135-145 H 3056664532) K (test code = 3.6 mmol/L 3.5-5.0 7391940025) CL (test code = 115 mmol/L 98-108 H 8065894005) CO2 TOTAL (test code = 14 mmol/L 23-31 L 7954844976) AGAP (test code = 2-16 H 1478804635) BUN (test code = 58 mg/dL 7-23 H 4433864862) GLUCOSE (test code = 193 mg/dL 70-110 H 9812765355) CREATININE (test code = 1.58 mg/dL 0.60-1.25 H 6071738168) CALCIUM (test code = 9.3 mg/dL 8.6-10.6 0448422816) eGFR (test code = mL/min/1.73m2 1873636880) JUAN LUIS (test code = JUAN LUIS) [...] tests). Lab Interpretation Abnormal (test code = 83767-3) [facility]31 Test Item Value Reference Range Interpretation Comments MAGNESIUM (test code = 3782450702) 2.2 mg/dL 1.7-2.4 Lab Interpretation (test code = Normal 46932-3) [facility] GLUCOSE (AUTOMATED)2020-10-25 01:29:10 Test Item Value Reference Range Interpretation Comments POCT GLU (test code = 8692483637) 135 mg/dL 70-110 H Lab Interpretation (test code = Abnormal 29161-8) [facility] GLUCOSE (AUTOMATED)2020-10-24 21:38:54 Test Item Value Reference Range Interpretation Comments POCT GLU (test code = 1273733727) 131 mg/dL 70-110 H Lab Interpretation (test code = Abnormal 23695-5) [facility] [id number] 20:06:13 No acute intracranial abnormality. Bilateral mastoid [...] reviewed this study and agree with the abovereport.[facility] GLUCOSE (AUTOMATED)2020-10-24 16:52:54 Test Item Value Reference Range Interpretation Comments POCT GLU (test code = 6258103925) 137 mg/dL 70-110 H Lab Interpretation (test code = Abnormal 29339-3) [facility] - To confirm nasogastric tube [...] Frontal views of the abdomen were obtained. [facility], Radiant Results Inft User - 10/24/2020 9:06 AM CDTEXAM: XR ABDOMEN 1 VWHISTORY: 65 years-old Male presenting with To confirm nasogastric tube tubeplacement.COMPARISON: Abdomen plain film 08/24/2019, 09/20/2017TECHNIQUE: Frontal views of the abdomen were obtained.IMPRESSIONFINDINGS / IMPRESSION:Nasogastric tube tip and sidehole terminate at the proximal stomach.Preliminary Report Dictated by Resident: Emelia Mcdonald I reviewed this study and agree.Jigar Gómez MD., have reviewed this study and agree with theabove report.[facility] GLUCOSE (AUTOMATED)2020-10-24 12:53:15 Test Item Value Reference Range Interpretation Comments POCT GLU (test code = 5879000068) 142 mg/dL 70-110 H Lab Interpretation (test code = Abnormal 35991-0) [facility] WITH [id number] 10:52:23 Test Item Value Reference Range Interpretation [...] (test code = 55.3 fL 38.5-51.6 H 22609-3) RDW-CV (test code = 20.4 % 12.1-15.4 H 788-0) PLT (test code = See_Comment [Automated 777-3) message] The sy stem which generated this result transmitted reference range : 150 - 328 10*3/ ?L. The reference r christine was not used to interpret this result as normal/abnormal . MPV (test code = 12.8 fL 9.8-13.0 94054-1) IPF % (test code = 4.3 % 1.2-10.7 Platelet count 7838392503) measured by fluorescence method. NRBC/100 WBC (test See_Comment [Automat ed code = 9049695069) message] The system which generated this result transmitted reference range : 0.0 - 10.0 /100 WBCs. The refer ence range was not u sed to interpret th is result as normal/abnormal . NRBC x10^3 (test code See_Comment [Auto mated = 2858996149) message] The s ystem which generated this result transmitted reference range : 10*3/?L. The reference range was not used to interpret this result as normal/abnormal . GRAN MAT (NEUT) % 90.4 % (test code = 770-8) IMM GRAN % (test code 0.80 % = 7088431945) LYMPH % (test code = 3.5 % 736-9) MONO % (test code = 4.9 % 5905-5) EOS % (test code = 0.1 % 713-8) BASO % (test code = 0.3 % 706-2) GRAN MAT x10^3(ANC) 12.98 10*3/uL 1.99-6.95 H (test code = 8421652119) IMM GRAN x10^3 (test 0.12 10*3/uL 0.00-0.06 H code = 7906233135) LYMPH x10^3 (test 0.51 10*3/uL 1.09-3.23 L code = 731-0) MONO x10^3 (test code 0.71 10*3/uL 0.36-1.02 = 742-7) EOS x10^3 (test code <0.03 0.06-0.53 L = 711-2) BASO x10^3 (test code 0.04 10*3/uL 0.01-0.09 = 704-7) ELLIPTO/OVAL (test 2+ See_Comment A [Automat ed code = 30188-7) message] The system which generated this result transmitted reference range : (none). The reference range was not used to interpret this result as normal/abnormal . SCHISTOCYTES (test 2+ A code = 800-3) BANDS (test code = Increased A 3411947972) Lab Interpretation Abnormal (test code = 03605-7) [facility] 10:23:51 Test Item Value Reference Range Interpretation Comments MAGNESIUM (test code = 1123634440) 2.2 mg/dL 1.7-2.4 Lab Interpretation (test code = Normal 44149-6) [facility] METABOLIC PANEL (NA, K, CL, CO2, GLUCOSE, BUN, CREATININE, CA)2020-10-24 10:23:51 Test Item Value Reference Range Interpretation Comments NA (test code = 144 mmol/L 135-145 8831596076) K (test code = 3.7 mmol/L 3.5-5.0 2899302868) CL (test code = 114 mmol/L 98-108 H 8189159565) CO2 TOTAL (test code = 15 mmol/L 23-31 L 4535493912) AGAP (test code = 2-16 2577247192) BUN (test code = 63 mg/dL 7-23 H 9770594667) GLUCOSE (test code = 140 mg/dL 70-110 H 2393742918) CREATININE (test code = 1.76 mg/dL 0.60-1.25 H 8869735919) CALCIUM (test code = 9.3 mg/dL 8.6-10.6 6518033210) eGFR (test code = mL/min/1.73m2 4644952506) JUAN LUIS (test code = JUAN LUIS) [...] tests). Lab Interpretation Abnormal (test code = 82465-9) [facility] GLUCOSE (AUTOMATED)2020-10-24 01:03:00 Test Item Value Reference Range Interpretation Comments POCT GLU (test code = 9172609203) 117 mg/dL 70-110 H Lab Interpretation (test code = Abnormal 68312-8) [facility] GLUCOSE (AUTOMATED)2020-10-23 23:30:25 Test Item Value Reference Range Interpretation Comments POCT GLU (test code = 4411593267) 129 mg/dL 70-110 H Lab Interpretation (test code = Abnormal 35642-2) [facility] GLUCOSE (AUTOMATED)2020-10-23 18:08:09 Test Item Value Reference Range Interpretation Comments POCT GLU (test code = 3663374795) 125 mg/dL 70-110 H Lab Interpretation (test code = Abnormal 88897-8) [facility] MSSA Screen by Britney [id number] 17:04:24 Test Item Value Reference Range Interpretation Comments MSSA Screen by Britney MTZ (test code Negative Negative = 60952-3) MRSA/MSSA Positive? (test code = No No 1900386999) Lab Interpretation (test code = Normal 03436-1) [facility] WITH [id number] 14:13:40 Test Item Value Reference Range Interpretation [...] (test code = 55.7 fL 38.5-51.6 H 52681-1) RDW-CV (test code = 21.0 % 12.1-15.4 H 788-0) PLT (test code = See_Comment L [Automated 777-3) message] The system which generated this result transmit tennille reference range : 150 - 328 10*3/ ?L. The reference range was not u sed to interpret th is result as normal/abnormal . MPV (test code = Not Measure d 06119-4) IPF % (test code = 6.0 % 1.2-10.7 Platelet count 7997624543) measured by fluorescence method. NRBC/100 WBC (test See_Comment [Automat ed code = 6501385183) message] The system which generated this result transmit tennille reference range : 0.0 - 10.0 /100 WBCs. The reference range was not used to interpret this result as normal/abnormal . NRBC x10^3 (test code <0.01 See_Comment [Auto mated = 4567727260) message] The system which generated this result transmit tennille reference range : 10*3/?L. The reference range was not used to interpret this result as normal/abnormal . GRAN MAT (NEUT) % 87.1 % (test code = 770-8) IMM GRAN % (test code 0.30 % = 9717891224) LYMPH % (test code = 5.7 % 736-9) MONO % (test code = 6.1 % 5905-5) EOS % (test code = 0.5 % 713-8) BASO % (test code = 0.3 % 706-2) GRAN MAT x10^3(ANC) 9.40 10*3/uL 1.99-6.95 H (test code = 5859895678) IMM GRAN x10^3 (test 0.03 10*3/uL 0.00-0.06 code = 8921669874) LYMPH x10^3 (test 0.61 10*3/uL 1.09-3.23 L [...] BANDS (test code = MARKED INCREASED A 1640571468) DOHLE BODIES (test Present A code = 7792-5) Lab Interpretation Abnormal (test code = 81030-7) [facility]2020-10-23 13:07:35 Test Item Value Reference Range Interpretation Comments POCT GLU (test code = 3137845553) 124 mg/dL 70-110 H Lab Interpretation (test code = Abnormal 62460-1) [facility] Packed RBC (in units), 1 Units 2020-10-23 10:02:05 Test Item Value Reference Range Interpretation Comments Cross Match Result Compatible (test code = 4409) ISBT Blood Type Code (test code = 990118) Unit Blood Type (test A Pos code = 4410) Unit Number (test [id number] code = 4411) Blood Expiration Date & Time (test code = 818958) Status Information Issued (test code = 4412) Product Red Blood Cells Identification (test code = 4413) Product Code (test [id number] Performed at [facility] code = 4414) Laboratory Services - [facility] Blood [address] [place] [address]Laue Free: [phone] A No. [id number] [facility]2021-[facility]-11 09:48:31 Test Item Value Reference Range Interpretation Comments MAGNESIUM (test code = 5960176825) 2.1 mg/dL 1.7-2.4 Lab Interpretation (test code = Normal 68296-3) [facility] WITH [id number] 09:36:10 Test Item Value Reference Range Interpretation [...] RDW-SD (test code = 50.4 fL 38.5-51.6 37597-8) RDW-CV (test code = 19.6 % 12.1-15.4 H 788-0) PLT (test code = See_Comment L [Automated 777-3) message] The system which generated this result transmit tennille reference range : 150 - 328 10*3/ ?L. The reference range was not u sed to interpret th is result as normal/abnormal . MPV (test code = 12.5 fL 9.8-13.0 41782-6) IPF % (test code = 5.6 % 1.2-10.7 Platelet count 0509522638) measured by fluorescence method. NRBC/100 WBC (test See_Comment [Automat ed code = 9532765153) message] The system which generated this result transmit tennille reference range : 0.0 - 10.0 /100 WBCs. The reference range was not used to interpret this result as normal/abnormal . NRBC x10^3 (test code <0.01 See_Comment [Auto mated = 3286315505) message] The system which generated this result transmit tennille reference range : 10*3/?L. The reference range was not used to interpret this result as normal/abnormal . GRAN MAT (NEUT) % 86.0 % (test code = 770-8) IMM GRAN % (test code 0.30 % = 4204221042) LYMPH % (test code = 7.3 % 736-9) MONO % (test code = 5.8 % 5905-5) EOS % (test code = 0.4 % 713-8) BASO % (test code = 0.2 % 706-2) GRAN MAT x10^3(ANC) 7.75 10*3/uL 1.99-6.95 H (test code = 8322071532) IMM GRAN x10^3 (test 0.03 10*3/uL 0.00-0.06 code = 4979723000) LYMPH x10^3 (test 0.66 10*3/uL 1.09-3.23 L [...] BANDS (test code = MARKED INCREASED A 1031154660) TOXIC CHANGES (test Present A code = 803-7) Lab Interpretation Abnormal (test code = 42702-0) [facility] METABOLIC PANEL (NA, K, CL, CO2, GLUCOSE, BUN, CREATININE, CA)2020-10-23 09:20:10 Test Item Value Reference Range Interpretation Comments NA (test code = 140 mmol/L 135-145 1417604386) K (test code = 3.7 mmol/L 3.5-5.0 8644934723) CL (test code = 111 mmol/L 98-108 H 9151721754) CO2 TOTAL (test code = 19 mmol/L 23-31 L 3731938230) AGAP (test code = 2-16 1312117641) BUN (test code = 72 mg/dL 7-23 H 6029259918) GLUCOSE (test code = 103 mg/dL 70-110 2622200746) CREATININE (test code = 1.88 mg/dL 0.60-1.25 H 8629289909) CALCIUM (test code = 9.2 mg/dL 8.6-10.6 6736795837) eGFR (test code = mL/min/1.73m2 6772506120) JUAN LUIS (test code = JUAN LUIS) [...] tests). Lab Interpretation Abnormal (test code = 57335-0) [id number] 23:41:10 Test Item Value Reference Range Interpretation Comments TROPONIN I (test 0.092 ng/mL See_Comment H [Automated code = 0557945232) message] The system which generated this result [...] ? Lab Interpretation Abnormal (test code = 78491-5) [facility] WITH [id number] 23:37:34 Test Item Value Reference Range Interpretation Comments WBC (test code = See_Comment [Automated 1190-2) message] The system which generated this result transmit tennille reference range : 4.20 - 10.70 10*3/?L. The reference range was not used to interpret this result as normal/abnormal . RBC (test code = See_Comment L [Automated 449-8) message] The system which generated this result [...] RDW-SD (test code = 50.0 fL 38.5-51.6 09298-2) RDW-CV (test code = 19.5 % 12.1-15.4 H 788-0) PLT (test code = See_Comment L [Automated 777-3) message] The system which generated this result transmit tennille reference range : 150 - 328 10*3/ ?L. The reference range was not u sed to interpret th is result as normal/abnormal . MPV (test code = 12.9 fL 9.8-13.0 77629-3) IPF % (test code = 4.4 % 1.2-10.7 Platelet count 2212589722) measured by fluorescence method. NRBC/100 WBC (test See_Comment [Automat ed code = 9463843958) message] The system which generated this result transmit tennille reference range : 0.0 - 10.0 /100 WBCs. The reference range was not used to interpret this result as normal/abnormal . NRBC x10^3 (test code <0.01 See_Comment [Auto mated = 7011408142) message] The system which generated this result transmit tennille reference range : 10*3/?L. The reference range was not used to interpret this result as normal/abnormal . GRAN MAT (NEUT) % 85.1 % (test code = 770-8) IMM GRAN % (test code 0.40 % = 3260437914) LYMPH % (test code = 7.4 % 736-9) MONO % (test code = 6.9 % 5905-5) EOS % (test code = 0.1 % 713-8) BASO % (test code = 0.1 % 706-2) GRAN MAT x10^3(ANC) 8.19 10*3/uL 1.99-6.95 H (test code = 4496163898) IMM GRAN x10^3 (test 0.04 10*3/uL 0.00-0.06 code = 2039262728) LYMPH x10^3 (test 0.71 10*3/uL 1.09-3.23 L [...] BANDS (test code = MARKED INCREASED A 7843039478) Lab Interpretation Abnormal (test code = 33447-9) [facility] Austin[facility] CHEST 1 [id number] 21:40:41 Endotracheal tube in good position. NG tube terminates in the left inferior chest possibly within ahiatalhernia. Correlate clinically. Multifocal infectious/inflammatory interstitial process. RL 4753 CHEST SINGLE VIEW CLINICAL HISTORY: Intubated ORDERING [...] Correlate clin ically.Multifocal infectious/inflammatory interstitial process.[id number] 20:56:24 Test Item Value Reference Range Interpretation Comments FERRITIN (test code = 2110.0 ng/mL 18.0-464.0 H 3744856503) JUAN LUIS (test code = JUAN LUIS) Biotin has been reported to cause a negative bias, interpret results relative to patient's use of biotin. Lab Interpretation (test Abnormal code = 75329-7) [facility] [id number] 20:56:24 Test Item Value Reference Range Interpretation Comments FERRITIN (test code = 2110.0 ng/mL 18.0-464.0 H 1395726564) JUAN LUIS (test code = JUAN LUIS) Biotin has been reported to cause a negative bias, interpret results relative to patient's use of biotin. Lab Interpretation (test Abnormal code = 04677-4) [facility] [place] [id number] 20:56:24 Test Item Value Reference Range Interpretation Comments FERRITIN (test code = 2110.0 ng/mL 18.0-464.0 H 4191160224) JUAN LUIS (test code = JUAN LUIS) Biotin has been reported to cause a negative bias, interpret results relative to patient's use of biotin. Lab Interpretation (test Abnormal code = 96432-5) [facility] Austin[facility]YCOSYLATED HEMOGLOBIN (A1C)2020-10-22 19:31:47 Test Item Value Reference Range Interpretation Comments HGB A1C (test code = 4548-4) 4.9 % 4.0-6.0 Lab Interpretation (test code = Normal 36970-9) [facility]YCOS[facility] HEMOGLOBIN (A1C)2020-10-22 19:31:47 Test Item Value Reference Range Interpretation Comments HGB A1C (test code = 4548-4) 4.9 % 4.0-6.0 Lab Interpretation (test code = Normal 30617-1) [facility]OS[facility] H[facility]GLOBIN (A1C)2020-10-22 19:31:47 Test Item Value Reference Range Interpretation Comments HGB A1C (test code = 4548-4) 4.9 % 4.0-6.0 Lab Interpretation (test code = Normal 68986-2) [facility] [id number] 19:18:54 Test Item Value Reference Range Interpretation Comments IRON (test code = <10 50-160 L 2192802905) TIBC (test code = 145 ug/dL 250-410 L 7491836298) % FE SAT (test code = Unable to calculate 9549294514) because, either iron serum, total ir on binding capacit y, or both are less t moser the sensitivity of the analyzer. Lab Interpretation (test Abnormal code = 76656-6) [facility] [id number] 19:18:54 Test Item Value Reference Range Interpretation Comments IRON (test code = <10 50-160 L 6636151666) TIBC (test code = 145 ug/dL 250-410 L 5286480499) % FE SAT (test code = Unable to calculate 5852035466) because, either iron serum, total ir on binding capacit y, or both are less t moser the sensitivity of the analyzer. Lab Interpretation (test Abnormal code = 67934-9) [facility] [id number] 19:18:54 Test Item Value Reference Range Interpretation Comments IRON (test code = <10 50-160 L 9034999743) TIBC (test code = 145 ug/dL 250-410 L 5394464059) % FE SAT (test code = Unable to calculate 0156511922) because, either iron serum, total ir on binding capacit y, or both are less t moser the sensitivity of the analyzer. Lab Interpretation (test Abnormal code = 92826-2) [facility] Austin[facility] [id number] 19:11:37 Test Item Value Reference Range Interpretation Comments TROPONIN I (test 0.099 ng/mL See_Comment H [Automated code = 6151826557) message] The system which generated this result [...] ? Lab Interpretation Abnormal (test code = 48144-6) [facility] WITH [id number] 18:26:52 Test Item Value Reference Range Interpretation Comments WBC (test code = See_Comment [Automated 6890-2) message] The system which generated this result transmit tennille reference range : 4.20 - 10.70 10*3/?L. The reference range was not used to interpret this result as normal/abnormal . RBC (test code = See_Comment L [Automated 499-8) message] The system which generated this result [...] RDW-SD (test code = 51.3 fL 38.5-51.6 17617-1) RDW-CV (test code = 19.8 % 12.1-15.4 H 788-0) PLT (test code = See_Comment L [Automated 777-3) message] The system which generated this result transmit tennille reference range : 150 - 328 10*3/ ?L. The reference range was not u sed to interpret th is result as normal/abnormal . MPV (test code = 13.2 fL 9.8-13.0 H 19577-2) IPF % (test code = 4.8 % 1.2-10.7 Platelet count 2393386561) measured by fluorescence method. NRBC/100 WBC (test See_Comment [Automat ed code = 3340290487) message] The system which generated this result transmit tennille reference range : 0.0 - 10.0 /100 WBCs. The reference range was not used to interpret this result as normal/abnormal . NRBC x10^3 (test code <0.01 See_Comment [Auto mated = 4649318914) message] The system which generated this result transmit tennille reference range : 10*3/?L. The reference range was not used to interpret this result as normal/abnormal . GRAN MAT (NEUT) % 85.7 % (test code = 770-8) IMM GRAN % (test code 0.20 % = 5880474129) LYMPH % (test code = 6.1 % 736-9) MONO % (test code = 7.9 % 5905-5) EOS % (test code = 0.0 % 713-8) BASO % (test code = 0.1 % 706-2) GRAN MAT x10^3(ANC) 7.24 10*3/uL 1.99-6.95 H (test code = 2214631787) IMM GRAN x10^3 (test <0.03 0.00-0.06 code = 9366765809) LYMPH x10^3 (test 0.52 10*3/uL 1.09-3.23 L [...] 2+ See_Comment A [Automat ed code = 99922-0) message] The system which generated this result transmit tennille reference range : (none). The reference range was not used to interpret this result as normal/abnormal . SCHISTOCYTES (test 2+ A code = 800-3) BANDS (test code = MARKED INCREASED A 5074678850) Lab Interpretation Abnormal (test code = 40679-6) [facility] AustinType and Screen - ONCE [id number] 18:18:46 Test Item Value Reference Range Interpretation Comments ABO & RH (test code A POSITIVE Performe d at [facility] = 20) Laboratory Serv [facility] Blood Bank3 [address] [facility] s [address]Hvai Free: [phone] A No. [id number] IAT (test code = Negative Performed a t [facility] 1185) Laboratory Serv [facility] Blood Bank3 [address] [facility] s [address]Ugwp Free: [phone] A No. [id number] [facility] AustinURINALYSIS2021-04-10 18:13:46 Test Item Value Reference Range Interpretation Comments APPEARANCE (test code = Cloudy Clear A 8249603405) COLOR (test code = Yellow Yellow 1563644837) PH (test code = 4.8-8.0 7480789901) SP GRAVITY (test code = 1.003-1.030 6135585711) GLU U QUAL (test code = Normal Normal 3230150384) BLOOD (test code = 2+ Negative A 9947281555) KETONES (test code = Negative Negative 8854005215) PROTEIN (test code = 100 mg/dL Negative A 2887-8) UROBILIN (test code = Normal Normal 0279137409) BILIRUBIN (test code = Negative Negative 3888331480) NITRITE (test code = Negative Negative 1960065830) LEUK SILVIO (test code = 500/uL Negative A 0293465293) RBC/HPF (test code = See_Comment H [Autom ated message] 4395861978) The system [employer] generated this result transmit tennille reference range : 0 - 3 HPF. The refe rence range was not u sed to interpret th is result as normal/abnormal . WBC/HPF (test code = >182 See_Comment H [Autom ated message] 3284688957) The system [employer] generated this result transmit tennille reference range : 0 - 5 HPF. The refe rence range was not u sed to interpret th is result as normal/abnormal . BACTERIA (test code = Few Negative A 6532143120) MUCOUS (test code = Slight Negative LPF A 3945038931) SQ EPITH (test code = See_Comment [Auto mated message] 1841502552) The system [employer] generated this result transmit tennille reference range : <=2 HPF. The refere nce range was not u sed to interpret th is result as normal/abnormal . WBC CLUMPS (test code = See_Comment H [Au tomated message] 9834314571) The system [employer] generated this result transmit tennille reference range : <=1 HPF. The refere nce range was not u sed to interpret th is result as normal/abnormal . HYAL CAST (test code = See_Comment H [Aut omated message] 3076788482) The system [employer] generated this result transmit tennille reference range : <=2 LPF. The refere nce range was not u sed to interpret th is result as normal/abnormal . Lab Interpretation (test Abnormal code = 70947-3) [facility]:46 Test Item Value Reference Range Interpretation Comments APPEARANCE (test code = Cloudy Clear A 1718847949) COLOR (test code = Yellow Yellow 3439883034) PH (test code = 4.8-8.0 2568006118) SP GRAVITY (test code = 1.003-1.030 1003992566) GLU U QUAL (test code = Normal Normal 1245497373) BLOOD (test code = 2+ Negative A 3300427394) KETONES (test code = Negative Negative 1425898744) PROTEIN (test code = 100 mg/dL Negative A 2887-8) UROBILIN (test code = Normal Normal 4529870556) BILIRUBIN (test code = Negative Negative 9707555430) NITRITE (test code = Negative Negative 8944754069) LEUK SILVIO (test code = 500/uL Negative A 5220140977) RBC/HPF (test code = See_Comment H [Autom ated message] 8074251994) The system [employer] generated this result transmit tennille reference range : 0 - 3 HPF. The refe rence range was not u sed to interpret th is result as normal/abnormal . WBC/HPF (test code = >182 See_Comment H [Autom ated message] 5686468585) The system [employer] generated this result transmit tennille reference range : 0 - 5 HPF. The refe rence range was not u sed to interpret th is result as normal/abnormal . BACTERIA (test code = Few Negative A 1632448430) MUCOUS (test code = Slight Negative LPF A 0181639058) SQ EPITH (test code = See_Comment [Auto mated message] 0523429959) The system [employer] generated this result transmit tennille reference range : <=2 HPF. The refere nce range was not u sed to interpret th is result as normal/abnormal . WBC CLUMPS (test code = See_Comment H [Au tomated message] 7442406915) The system [employer] generated this result transmit tennille reference range : <=1 HPF. The refere nce range was not u sed to interpret th is result as normal/abnormal . HYAL CAST (test code = See_Comment H [Aut omated message] 7972740638) The system [employer] generated this result transmit tennille reference range : <=2 LPF. The refere nce range was not u sed to interpret th is result as normal/abnormal . Lab Interpretation (test Abnormal code = 64408-0) [facility] [id number] 18:13:46 Test Item Value Reference Range Interpretation Comments APPEARANCE (test code = Cloudy Clear A 1481152370) COLOR (test code = Yellow Yellow 7088558341) PH (test code = 4.8-8.0 7952897443) SP GRAVITY (test code = 1.003-1.030 2025905007) GLU U QUAL (test code = Normal Normal 0652423132) BLOOD (test code = 2+ Negative A 7391196338) KETONES (test code = Negative Negative 7991652157) PROTEIN (test code = 100 mg/dL Negative A 2887-8) UROBILIN (test code = Normal Normal 4025713944) BILIRUBIN (test code = Negative Negative 9076725099) NITRITE (test code = Negative Negative 5567952613) LEUK SILVIO (test code = 500/uL Negative A 4368225162) RBC/HPF (test code = See_Comment H [Autom ated message] 2406845744) The system [employer] generated this result transmit tennille reference range : 0 - 3 HPF. The refe rence range was not u sed to interpret th is result as normal/abnormal . WBC/HPF (test code = >182 See_Comment H [Autom ated message] 0401903050) The system [employer] generated this result transmit tennille reference range : 0 - 5 HPF. The refe rence range was not u sed to interpret th is result as normal/abnormal . BACTERIA (test code = Few Negative A 0548502616) MUCOUS (test code = Slight Negative LPF A 8561419566) SQ EPITH (test code = See_Comment [Auto mated message] 2672192793) The system [employer] generated this result transmit tennille reference range : <=2 HPF. The refere nce range was not u sed to interpret th is result as normal/abnormal . WBC CLUMPS (test code = See_Comment H [Au tomated message] 4129682631) The system [employer] generated this result transmit tennille reference range : <=1 HPF. The refere nce range was not u sed to interpret th is result as normal/abnormal . HYAL CAST (test code = See_Comment H [Aut omated message] 7614772623) The system [employer] generated this result transmit tennille reference range : <=2 LPF. The refere nce range was not u sed to interpret th is result as normal/abnormal . Lab Interpretation (test Abnormal code = 41184-7) [facility] ([id number][facility] (ALB,T.PRO,BILI T,BU/BC,ALT,AST,ALK PHOS)2020-10-22 18:07:08 Test Item Value Reference Range Interpretation Comments TOTAL BILI (test code = 4273779559) 0.5 mg/dL 0.1-1.1 BILI UNCON (test code = 5152946926) 0.3 mg/dL 0.1-1.1 BILI CONJ (test code = 2235160165) 0.0 mg/dL 0.0-0.3 T PROTEIN (test code = 1046405406) 5.9 g/dL 6.3-8.2 L ALBUMIN (test code = 3223542316) 3.0 g/dL 3.5-5.0 L ALK PHOS (test code = 2524683021) 60 U/L 34-122 ALTv (test code = 1742-6) 35 U/L 5-50 AST(SGOT) (test code = 9589643307) 48 U/L 13-40 H Lab Interpretation (test code = Abnormal 60382-1) [facility] (83739[facility] (ALB,T.PRO,BILI T,BU/BC,ALT,AST,ALK PHOS)2020-10-22 18:07:08 Test Item Value Reference Range Interpretation Comments TOTAL BILI (test code = 2891838701) 0.5 mg/dL 0.1-1.1 BILI UNCON (test code = 6269211391) 0.3 mg/dL 0.1-1.1 BILI CONJ (test code = 5063553586) 0.0 mg/dL 0.0-0.3 T PROTEIN (test code = 8841450756) 5.9 g/dL 6.3-8.2 L ALBUMIN (test code = 5715127920) 3.0 g/dL 3.5-5.0 L ALK PHOS (test code = 2348928804) 60 U/L 34-122 ALTv (test code = 1742-6) 35 U/L 5-50 AST(SGOT) (test code = 3138485519) 48 U/L 13-40 H Lab Interpretation (test code = Abnormal 87066-2) [facility]OL[facility] (NA, K, CL, CO2, GLUCOSE, BUN, CREATININE, CA)2020-10-22 18:07:08 Test Item Value Reference Range Interpretation Comments NA (test code = 137 mmol/L 135-145 8216941043) K (test code = 4.2 mmol/L 3.5-5.0 6491663773) CL (test code = 104 mmol/L 98-108 3484138823) CO2 TOTAL (test code = 23 mmol/L 23-31 0781217670) AGAP (test code = 2-16 6103386410) BUN (test code = 82 mg/dL 7-23 H 8025281819) GLUCOSE (test code = 84 mg/dL 70-110 3331782448) CREATININE (test code = 1.88 mg/dL 0.60-1.25 H 9104790842) CALCIUM (test code = 9.9 mg/dL 8.6-10.6 3312611584) eGFR (test code = mL/min/1.73m2 4238340563) JUAN LUIS (test code = JUAN LUIS) [...] tests). Lab Interpretation Abnormal (test code = 18476-9) [facility] (88326) (ALB,T.PRO,BILI T,BU/BC,ALT,AST,ALK PHOS)2020-10-22 18:07:08 Test Item Value Reference Range Interpretation Comments TOTAL BILI (test code = 7205403729) 0.5 mg/dL 0.1-1.1 BILI UNCON (test code = 5620084725) 0.3 mg/dL 0.1-1.1 BILI CONJ (test code = 9567308196) 0.0 mg/dL 0.0-0.3 T PROTEIN (test code = 8180241287) 5.9 g/dL 6.3-8.2 L ALBUMIN (test code = 7338988471) 3.0 g/dL 3.5-5.0 L ALK PHOS (test code = 0839984684) 60 U/L 34-122 ALTv (test code = 1742-6) 35 U/L 5-50 AST(SGOT) (test code = 8611246982) 48 U/L 13-40 H Lab Interpretation (test code = Abnormal 32226-6) [facility]2021-[facility]-10 17:54:11 Test Item Value Reference Range Interpretation Comments Fibrinogen (test code = 1914043275) 585 mg/dL 167-453 H Lab Interpretation (test code = Abnormal 28977-2) [facility] AustinPROTHROMBIN [facility] / [id number] 17:54:11 Test Item Value Reference Range Interpretation Comments PROTIME PATIENT (test See_Comment H [Auto mated message] code = 5964-2) The system [employer] generated this result transmitted ref erence range: 10.1 - 1 2.6 Seconds. The reference range was not used to int erpret this result as normal/abnormal . INR (test code = 6301-6) Nor mal INR <1.1; Warfarin Therap eutic range 2.0 to 3. 0 or 2.5 to 3.5, dep ending upon the indica tions. Lab Interpretation (test Abnormal code = 65190-4) [facility] 20 + LACTIC [id number] 17:44:46 Test Item Value Reference Range Interpretation Comments PH (test code = 2) 7.35-7.45 H PCO2 (test code = See_Comment L [Automat ed 6549246747) message] The sy stem which generated this result transmitted reference range : 35 - 45 mmHg. The reference range was not used to interpret this result as normal/abnormal . PO2 (test code = See_Comment H [Automated 4787692247) message] The sy stem which generated this result transmitted reference range : 80 - 100 mmHg. The reference range was not used to interpret this result as normal/abnormal . HCO3 (test code = See_Comment L [Automate d 0206484576) message] The sy stem which generated this result transmitted reference range : 22 - 26 mEq/L. The reference range was not used to interpret this result as normal/abnormal . BE (test code = See_Comment [Automated 0804220659) message] The sy stem which generated this result transmitted reference range : -3.0 - 3.0 mEq/ L. The reference r christine was not used to interpret this result as normal/abnormal . THB (test code = 10.9 g/dL 13.5-18.0 L 5860026584) %O2HB (test code = 97.7 % 94.0-99.0 2928079206) %COHB ART (test code = 0.3 % 0.0-1.5 4147872107) %METHB ART (test code = 0.3 % 0.4-1.5 L 5164352390) VOL%O2 ART (test code = 15.1 % 15.0-23.0 5692734826) NA (test code = 134 mmol/L 135-145 L 3869340792) K+ (test code = 4.2 mmol/L 3.5-5.0 6314502259) AC CA IONZ (test code = 5.10 mg/dL 4.50-5.30 8656215895) GLUCOSE (test code = 84 mg/dL 70-110 5328339932) LACTIC ACID (test code 1.39 mmol/L 0.50-2.20 = 0602250525) Lab Interpretation Abnormal (test code = 65359-8) [facility] Austin[facility] Screen - Type and Screen expires at midnight on the 3rd day after it was drawn. A current Type and Screen is required when RBCs are requested. For all other blood products, a Type and Screen performed during the current hospitalization i...2020-05-03 21:04:13 Test Item Value Reference Range Interpretation Comments ABO & RH (test code A Positive Performe d at [facility] = 20) Laboratory [facility] [address] [place] [address] Free: [phone] A No. [id number] IAT (test code = Negative Performed a t [facility] 1185) Laboratory [facility] [address] [place] [id number] Free: [phone] A No. [id number] [facility] Austin[facility] [id number] 20:34:00 Test Item Value Reference Range Interpretation Comments TROPONIN I (test 0.034 ng/mL See_Comment [Automated code = 1276864175) message] The system which generated this result [...] ? Lab Interpretation Normal (test code = 23854-4) [facility] Austin[facility]MINAL [id number] 20:31:00 Test Item Value Reference Range Interpretation Comments NT-proBNP (test code 5460 pg/mL See_Comment H [Autom ated = 6625316745) message] The system which generated this result transmitted reference range : <=125. The reference range was not used to interpret this result as normal/abnormal . JUAN LUIS (test code = JUAN LUIS) Biotin has been reported to cause a negative bias, interpret results relative to patient's use of biotin. Lab Interpretation Abnormal (test code = 05901-5) [facility] (NA, K, CL, CO2, GLUCOSE, BUN, CREATININE, CA)2020-05-03 20:22:00 Test Item Value Reference Range Interpretation Comments NA (test code = 137 mmol/L 135-145 4519352555) K (test code = 4.2 mmol/L 3.5-5 9664097394) CL (test code = 100 mmol/L 98-108 1449235305) CO2 TOTAL (test code = 28 mmol/L 23-31 2381331081) AGAP (test code = 2-16 0491926392) BUN (test code = 55 mg/dL 7-23 H 8664173077) GLUCOSE (test code = 141 mg/dL 70-110 H 5548827616) CREATININE (test code = 1.76 mg/dL 0.6-1.25 H 4036398698) CALCIUM (test code = 9.4 mg/dL 8.6-10.6 7880925816) eGFR Calculation mL/min/1.73m2 (Non-) (test code = 4268974361) eGFR Calculation mL/min/1.73m2 () (test code = 1724743573) JUAN LUIS (test code = JUAN LUIS) [...] tests). Lab Interpretation Abnormal (test code = 66514-6) [facility] (ALB, T.PRO, BILI T, BU/BC, ALT, AST, ALK PHOS)2020-05-03 20:22:00 Test Item Value Reference Range Interpretation Comments TOTAL BILI (test code = 2461839279) 0.5 mg/dL 0.1-1.1 BILI UNCON (test code = 7873737603) 0.5 mg/dL 0.1-1.1 BILI CONJ (test code = 4108562101) 0.0 mg/dL 0-0.3 T PROTEIN (test code = 1863008664) 6.5 g/dL 6.3-8.2 ALBUMIN (test code = 5198609529) 3.6 g/dL 3.5-5 ALK PHOS (test code = 7225775004) 62 U/L 34-122 ALTv (test code = 1742-6) 49 U/L 5-50 AST(SGOT) (test code = 3174034550) 50 U/L 13-40 H Lab Interpretation (test code = Abnormal 29470-7) [facility] AustinCBC with [id number] 20:12:00 Test Item Value Reference Range Interpretation Comments WBC (test code = See_Comment [Automated 0990-2) message] The sy stem which generated this [...] (test code = 35.9 fL 38.5-51.6 L 48053-6) RDW-CV (test code = 15.5 % 12.1-15.4 H 788-0) PLT (test code = See_Comment [Automated 777-3) message] The sy stem which generated this result transmitted reference range : 150 - 328 10*3/ ?L. The reference r christine was not used to interpret this result as normal/abnormal . MPV (test code = 12.7 fL 9.8-13 59806-8) IPF % (test code = 3.0 % 1.2-10.7 Platelet count 3564002174) measured by fluorescence method. NRBC/100 WBC (test See_Comment [Automat ed code = 3814344302) message] The system which generated this result transmitted reference range : 0.0 - 10.0 /100 WBCs. The refer ence range was not u sed to interpret th is result as normal/abnormal . NRBC x10^3 (test code <0.01 See_Comment [Auto mated = 8606746759) message] The s ystem which generated this result transmitted reference range : 10*3/?L. The reference range was not used to interpret this result as normal/abnormal . GRAN MAT (NEUT) % 65.3 % (test code = 770-8) IMM GRAN % (test code 0.30 % = 6433406088) LYMPH % (test code = 19.0 % 736-9) MONO % (test code = 8.6 % 5905-5) EOS % (test code = 6.2 % 713-8) BASO % (test code = 0.6 % 706-2) GRAN MAT x10^3(ANC) 5.10 10*3/uL 1.99-6.95 (test code = 0770754990) IMM GRAN x10^3 (test <0.03 0-0.06 code = 0228527418) LYMPH x10^3 (test code 1.48 10*3/uL 1.09-3.23 = 731-0) MONO x10^3 (test code 0.67 10*3/uL 0.36-1.02 = 742-7) EOS x10^3 (test code = 0.48 10*3/uL 0.06-0.53 711-2) BASO x10^3 (test code 0.05 10*3/uL 0.01-0.09 = 704-7) Lab Interpretation Abnormal (test code = 66981-0) [facility] GLUCOSE (AUTOMATED)2019-10-28 13:00:00 Test Item Value Reference Range Interpretation Comments POCT GLU (test code = 4009584387) 89 mg/dL 70-110 Lab Interpretation (test code = Normal 87102-7) [facility] GLUCOSE (AUTOMATED)2019-10-28 10:36:00 Test Item Value Reference Range Interpretation Comments POCT GLU (test code = 8279145865) 223 mg/dL 70-110 H Lab Interpretation (test code = Abnormal 78585-8) [facility] Austin[facility]MINAL [id number] 10:09:00 Test Item Value Reference Range Interpretation Comments NT-proBNP (test code 66850 pg/mL See_Comment H [Autom ated = 0388977924) message] The system which generated this result transmitted reference range : <=125. The reference range was not used to interpret this result as normal/abnormal . JUAN LUIS (test code = JUAN LUIS) Biotin has been reported to cause a negative bias, interpret results relative to patient's use of biotin. Lab Interpretation Abnormal (test code = 62493-1) [facility] [place] [place]. METABOLIC PANEL (35782)2019-10-28 10:06:00 Test Item Value Reference Range Interpretation Comments NA (test code = 136 mmol/L 135-145 4802743535) K (test code = 5.0 mmol/L 3.5-5 7992709546) CL (test code = 107 mmol/L 98-108 5109048453) CO2 TOTAL (test code = 27 mmol/L 23-31 4136867063) AGAP (test code = 2-16 6989287507) BUN (test code = 50 mg/dL 7-23 H 4769928588) GLUCOSE (test code = 82 mg/dL 70-110 8788360813) CREATININE (test code = 1.76 mg/dL 0.6-1.25 H 9539786497) TOTAL BILI (test code = 0.3 mg/dL 0.1-1.7 6723200718) CALCIUM (test code = 8.9 mg/dL 8.6-10.6 6863474711) T PROTEIN (test code = 5.8 g/dL 6.3-8.2 L 8240636837) ALBUMIN (test code = 3.0 g/dL 3.5-5 L 7145531502) ALK PHOS (test code = 56 U/L 34-122 4084476187) ALTv (test code = 25 U/L 5-50 1742-6) AST(SGOT) (test code = 32 U/L 13-40 1874162424) eGFR Calculation mL/min/1.73m2 (Non-) (test code = 3291660024) eGFR Calculation mL/min/1.73m2 () (test code = 4811267369) JUAN LUIS (test code = JUAN LUIS) [...] tests). Lab Interpretation Abnormal (test code = 11980-0) [facility] Austin[facility] [id number] 10:06:00 Test Item Value Reference Range Interpretation Comments URIC ACID (test code = 6121656600) 6.2 mg/dL 3.6-8 Lab Interpretation (test code = Normal 45104-4) [facility] WITH [id number] 09:42:00 Test Item Value Reference Range Interpretation [...] RDW-SD (test code = 47.8 fL 38.5-51.6 96940-7) RDW-CV (test code = 18.8 % 12.1-15.4 H 788-0) PLT (test code = See_Comment [Automated 777-3) message] The sy stem which generated this result transmitted reference range : 150 - 328 10*3/ ?L. The reference r christine was not used to interpret this result as normal/abnormal . MPV (test code = 11.6 fL 9.8-13 70376-9) IPF % (test code = 2.4 % 1.2-10.7 Platelet count 5324723038) measured by fluorescence method. NRBC/100 WBC (test See_Comment [Automat ed code = 9993233684) message] The system which generated this result transmitted reference range : 0.0 - 10.0 /100 WBCs. The refer ence range was not u sed to interpret th is result as normal/abnormal . NRBC x10^3 (test code <0.01 See_Comment [Auto mated = 7004803307) message] The s ystem which generated this result transmitted reference range : 10*3/?L. The reference range was not used to interpret this result as normal/abnormal . GRAN MAT (NEUT) % 55.9 % (test code = 770-8) IMM GRAN % (test code 0.30 % = 5386721754) LYMPH % (test code = 28.2 % 736-9) MONO % (test code = 9.1 % 5905-5) EOS % (test code = 5.3 % 713-8) BASO % (test code = 1.2 % 706-2) GRAN MAT x10^3(ANC) 3.88 10*3/uL 1.99-6.95 (test code = 6894958178) IMM GRAN x10^3 (test <0.03 0-0.06 code = 9776847856) LYMPH x10^3 (test code 1.96 10*3/uL 1.09-3.23 = 731-0) MONO x10^3 (test code 0.63 10*3/uL 0.36-1.02 = 742-7) EOS x10^3 (test code = 0.37 10*3/uL 0.06-0.53 711-2) BASO x10^3 (test code 0.08 10*3/uL 0.01-0.09 = 704-7) Lab Interpretation Abnormal (test code = 26884-9) [facility] GLUCOSE (AUTOMATED)2019-10-28 01:57:00 Test Item Value Reference Range Interpretation Comments POCT GLU (test code = 2671644577) 112 mg/dL 70-110 H Lab Interpretation (test code = Abnormal 79568-1) [facility] GLUCOSE (AUTOMATED)2019-10-27 16:31:00 Test Item Value Reference Range Interpretation Comments POCT GLU (test code = 2767486676) 142 mg/dL 70-110 H Lab Interpretation (test code = Abnormal 67219-9) [facility] GLUCOSE (AUTOMATED)2019-10-27 16:31:00 Test Item Value Reference Range Interpretation Comments POCT GLU (test code = 1317300763) 138 mg/dL 70-110 H Lab Interpretation (test code = Abnormal 68097-9) [facility] AustinPROFILE / [id number] 16:06:00 Test Item Value Reference Range Interpretation Comments WBC (test code = See_Comment [Automated message] 6690-2) The system [employer] generated this result transmitted ref erence range: 4.20 - 1 0.70 10*3/?L. The reference range was not used to int erpret this result as normal/abnormal . RBC (test code = 789-8) See_Comment L [Au tomated message] The system [employer] generated this result transmitted ref erence range: [...] 777-3) See_Comment [Au tomated message] The system [employer] generated this result transmitted ref erence range: 150 - 32 8 10*3/?L. The reference range was not used to int erpret this result as normal/abnormal . MPV (test code = 11.4 fL 9.8-13 70934-1) RDW-CV (test code = 19.0 % 12.1-15.4 H 788-0) RDW-SD (test code = 48.5 fL 38.5-51.6 90001-1) NRBC x10^3 (test code = <0.01 See_Comment [Au tomated message] 4547869310) The system [employer] generated this result transmitted ref erence range: 10*3/?L. The reference range was not used to int erpret this result as normal/abnormal . NRBC/100 WBC (test code See_Comment [Au tomated message] = 2257790442) The system [facility] generated this result transmitted ref erence range: 0.0 - 10 .0 /100 WBCs. The reference range was not used to int erpret this result as normal/abnormal . IPF % (test code = 2.5 % 1.2-10.7 Platelet count 7308800101) measured by fluorescence me thod. Lab Interpretation Abnormal (test code = 23942-1) [facility] [id number] 15:51:00 Test Item Value Reference Range Interpretation Comments TROPONIN I (test 0.043 ng/mL See_Comment H [Automated code = 3178605702) message] The system which generated this result [...] ? Lab Interpretation Abnormal (test code = 43304-0) [facility] AustinUREA NITROGEN, URINE [id number] 15:40:00 Test Item Value Reference Range Interpretation Comments UREA N UR (test code = 7335543060) 531 mg/dL [facility] AustinPO[facility] GL[facility]AUTOMATED)2019-10-27 12:43:00 Test Item Value Reference Range Interpretation Comments POCT GLU (test code = 4774036129) 140 mg/dL 70-110 H Lab Interpretation (test code = Abnormal 59208-3) [facility] AustinPROTEIN CREAT RATIO URINE [id number] 11:43:00 Test Item Value Reference Range Interpretation Comments T. PROT U (test code = 2888-6) 584 mg/dL CREAT U (test code = 4604189504) 28.0 mg/dL Protein/Creatinine Ratio Urine 0.0-2.0 H (test code = 5177636467) Lab Interpretation (test code = Abnormal 27973-3) [facility] AustinURINALYSIS2020-04-14 11:12:00 Test Item Value Reference Range Interpretation Comments APPEARANCE (test code = Clear Clear 8233703182) COLOR (test code = Yellow Yellow 8253964802) PH (test code = 4.8-8.0 4229263422) SP GRAVITY (test code = 1.003-1.030 1063375827) GLU U QUAL (test code = 50 mg/dL Normal A 0305483229) BLOOD (test code = Negative Negative 0603869552) KETONES (test code = Negative Negative 1578786557) PROTEIN (test code = 100 mg/dL Negative A 2887-8) UROBILIN (test code = Normal Normal 4438692899) BILIRUBIN (test code = Negative Negative 4861187397) NITRITE (test code = Negative Negative 8914933741) LEUK SILVIO (test code = Negative Negative 5736948146) RBC/HPF (test code = See_Comment H [Autom ated message] 0534401145) The system [employer] generated this result transmit tennille reference range : 0 - 3 HPF. The refe rence range was not u sed to interpret th is result as normal/abnormal . WBC/HPF (test code = See_Comment [Autom ated message] 7051420577) The system [employer] generated this result transmit tennille reference range : 0 - 5 HPF. The refe rence range was not u sed to interpret th is result as normal/abnormal . BACTERIA (test code = Few Negative A 9185129382) MUCOUS (test code = Slight Negative LPF A 3933931599) SQ EPITH (test code = <1 HPF 4877518354) HYAL CAST (test code = See_Comment H [Aut omated message] 8010262853) The system [employer] generated this result transmit tennille reference range : <=2 LPF. The refere nce range was not u sed to interpret th is result as normal/abnormal . Lab Interpretation (test Abnormal code = 40641-4) [facility] AustinSODIUM, URINE [id number] 11:07:00 Test Item Value Reference Range Interpretation Comments NA URINE (test code = 7660302217) 45 mmol/L [facility] AustinPOTX GLU[facility]SE (AUTOMATED)2019-10-27 10:49:00 Test Item Value Reference Range Interpretation Comments POCT GLU (test code = 4464269504) 163 mg/dL 70-110 H Lab Interpretation (test code = Abnormal 72336-0) [facility] [id number] 10:10:00 Test Item Value Reference Range Interpretation Comments TROPONIN I (test 0.035 ng/mL See_Comment H [Automated code = 3339786581) message] The system which generated this result [...] ? Lab Interpretation Abnormal (test code = 41230-7) [facility] [id number] 10:07:00 Test Item Value Reference Range Interpretation Comments NT-proBNP (test code 8960 pg/mL See_Comment H [Autom ated = 5068439296) message] The system which generated this result transmitted reference range : <=125. The reference range was not used to interpret this result as normal/abnormal . JUAN LUIS (test code = JUAN LUIS) Biotin has been reported to cause a negative bias, interpret results relative to patient's use of biotin. Lab Interpretation Abnormal (test code = 54367-8) [facility] AustinCOMP. METABOLIC PANEL (62657)2019-10-27 10:03:00 Test Item Value Reference Range Interpretation Comments NA (test code = 136 mmol/L 135-145 7058078473) K (test code = 5.2 mmol/L 3.5-5 H 4978563969) CL (test code = 106 mmol/L 98-108 5528825954) CO2 TOTAL (test code = 25 mmol/L 23-31 4400309604) AGAP (test code = 2-16 4442064988) BUN (test code = 54 mg/dL 7-23 H 6942375083) GLUCOSE (test code = 139 mg/dL 70-110 H 6507812275) CREATININE (test code = 1.42 mg/dL 0.6-1.25 H 0434423587) TOTAL BILI (test code = 0.2 mg/dL 0.1-1.3 5914344927) CALCIUM (test code = 8.7 mg/dL 8.6-10.6 8693799468) T PROTEIN (test code = 5.8 g/dL 6.3-8.2 L 5104427364) ALBUMIN (test code = 2.9 g/dL 3.5-5 L 2554620456) ALK PHOS (test code = 53 U/L 34-122 4659167969) ALTv (test code = 21 U/L 5-50 1742-6) AST(SGOT) (test code = 30 U/L 13-40 8721780136) eGFR Calculation mL/min/1.73m2 (Non-) (test code = 8502919821) eGFR Calculation mL/min/1.73m2 () (test code = 1727871108) JUAN LUIS (test code = JUAN LUIS) [...] tests). Lab Interpretation Abnormal (test code = 03144-9) [facility]2020-[facility]-14 10:01:00 Test Item Value Reference Range Interpretation Comments MAGNESIUM (test code = 9138939850) 2.5 mg/dL 1.7-2.4 H Lab Interpretation (test code = Abnormal 61752-7) [facility] AustinURIC [id number] 10:00:00 Test Item Value Reference Range Interpretation Comments URIC ACID (test code = 8161551581) 5.7 mg/dL 3.6-8 Lab Interpretation (test code = Normal 23603-3) [facility] AustinSEDIMENTATION [id number] 09:58:00 Test Item Value Reference Range Interpretation Comments ESR (test code = See_Comment H [Automated message] 8193687298) The system [employer] generated this result transmitted ref erence range: 0 - 10 m m/HR. The reference r christine was not used to interpret this result as normal/abnor mal. Lab Interpretation (test Abnormal code = 67912-9) [facility] AustinFERRITIN [id number] 09:45:00 Test Item Value Reference Range Interpretation Comments FERRITIN (test code = 829.0 ng/mL 18-464 H 5636875667) JUAN LUIS (test code = JUAN LUIS) Biotin has been reported to cause a negative bias, interpret results relative to patient's use of biotin. Lab Interpretation (test Abnormal code = 75290-1) [facility] AustinCBC WITH [id number] 09:31:00 Test Item Value Reference Range Interpretation Comments WBC (test code = See_Comment [Automated 0175-2) message] The sy stem which generated this result transmitted reference range : 4.20 - 10.70 10*3/?L. The reference range was not used to interpret this result as normal/abnormal . RBC (test code = See_Comment L [Automated 590-8) message] The sy stem which generated this [...] RDW-SD (test code = 46.8 fL 38.5-51.6 77564-8) RDW-CV (test code = 19.1 % 12.1-15.4 H 788-0) PLT (test code = See_Comment [Automated 777-3) message] The sy stem which generated this result transmitted reference range : 150 - 328 10*3/ ?L. The reference r christine was not used to interpret this result as normal/abnormal . MPV (test code = 10.9 fL 9.8-13 38063-2) NRBC/100 WBC (test See_Comment [Automat ed code = 3823260128) message] The system which generated this result transmitted reference range : 0.0 - 10.0 /100 WBCs. The refer ence range was not u sed to interpret th is result as normal/abnormal . NRBC x10^3 (test code <0.01 See_Comment [Auto mated = 3049955820) message] The s ystem which generated this result transmitted reference range : 10*3/?L. The reference range was not used to interpret this result as normal/abnormal . GRAN MAT (NEUT) % 79.8 % (test code = 770-8) IMM GRAN % (test code 0.20 % = 4304828872) LYMPH % (test code = 11.9 % 736-9) MONO % (test code = 7.0 % 5905-5) EOS % (test code = 0.6 % 713-8) BASO % (test code = 0.5 % 706-2) GRAN MAT x10^3(ANC) 7.01 10*3/uL 1.99-6.95 H (test code = 3531575286) IMM GRAN x10^3 (test <0.03 0-0.06 code = 2017108090) LYMPH x10^3 (test code 1.04 10*3/uL 1.09-3.23 L = 731-0) MONO x10^3 (test code 0.61 10*3/uL 0.36-1.02 = 742-7) EOS x10^3 (test code = 0.05 10*3/uL 0.06-0.53 L 711-2) BASO x10^3 (test code 0.04 10*3/uL 0.01-0.09 = 704-7) Lab Interpretation Abnormal (test code = 30989-4) [facility] [id number] 09:24:00 Test Item Value Reference Range Interpretation Comments IRON (test code = 4166482941) 46 ug/dL 50-160 L TIBC (test code = 4936599804) 256 ug/dL 250-410 % FE SAT (test code = 2819580588) 18 % 20-50 L Lab Interpretation (test code = Abnormal 78462-6) [facility] [id number] 09:22:00 Test Item Value Reference Range Interpretation Comments TROPONIN I (test 0.040 ng/mL See_Comment H [Automated code = 9486501287) message] The system which generated this result [...] ? Lab Interpretation Abnormal (test code = 88794-2) [facility] AustinGLYCOSYLATED HEMOGLOBIN (A1C)2019-10-27 09:18:00 Test Item Value Reference [...] Indicated Lab Interpretation Normal (test code = 17775-4) [facility] [id number] 09:13:00 Test Item Value Reference Range Interpretation Comments URIC ACID (test code = 5825662335) 6.2 mg/dL 3.6-8 Lab Interpretation (test code = Normal 55843-1) [facility] AustinHEPATIC FUNCTION PANEL (28376) (ALB,T.PRO,BILI T,BU/BC,ALT,AST,ALK PHOS)2019-10-27 09:10:00 Test Item Value Reference Range Interpretation Comments TOTAL BILI (test code = 8363063551) 0.2 mg/dL 0.1-1.1 BILI UNCON (test code = 6357007004) 0.4 mg/dL 0.1-1.1 BILI CONJ (test code = 3792103234) 0.0 mg/dL 0-0.3 T PROTEIN (test code = 4961076315) 7.6 g/dL 6.3-8.2 ALBUMIN (test code = 7858999276) 4.0 g/dL 3.5-5 ALK PHOS (test code = 9439739591) 66 U/L 34-122 ALTv (test code = 1742-6) 29 U/L 5-50 AST(SGOT) (test code = 5084967092) 106 U/L 13-40 H Lab Interpretation (test code = Abnormal 97957-4) [facility] AustinLIPID PANEL (39206)(TOTAL CHOLESTEROL, TRIGLYCERIDES, HDL)2019-10-27 09:10:00 Test Item Value Reference Range Interpretation Comments CHOL (test code = 122 mg/dL 120-200 8730835439) HDL (test code = 68 mg/dL >40 8045993052) HDLC RATIO (test code = See_Comment [Au tomated message] 4758941724) The system [employer] generated this result transmit tennille reference range : <=5.0. The refe rence range was not u sed to interpret th is result as normal/abnormal . TRIG (test code = 31 mg/dL 30-170 7757963824) LDL CHOL (test code = 48 mg/dL See_Comment [Auto mated message] 27634-5) The system [employer] generated this result transmit tennille reference range : <=160. The refe rence range was not u sed to interpret th is result as normal/abnormal . VLDL (test code = 6 mg/dL 5-60 9458119050) Lab Interpretation (test Normal code = 82416-6) [facility] AustinCREATINE [id number] 09:10:00 Test Item Value Reference Range Interpretation Comments CK (test code = 8218250119) 174 U/L 33-194 Lab Interpretation (test code = Normal 63627-2) [facility] AustinLIPASE2020-04-14 09:10:00 Test Item Value Reference Range Interpretation Comments LIPASE (test code = 7124189382) 115 U/L 0-220 Lab Interpretation (test code = Normal 52290-8) [facility] AustinMAGNESIUM2020-04-14 09:10:00 Test Item Value Reference Range Interpretation Comments MAGNESIUM (test code = 1392656834) 2.7 mg/dL 1.7-2.4 H Lab Interpretation (test code = Abnormal 99173-9) [facility] AustinPHOSPHORUS2020-04-14 09:10:00 Test Item Value Reference Range Interpretation Comments PHOSPHORUS (test code = 4187918618) 4.4 mg/dL 2.5-5 Lab Interpretation (test code = Normal 70680-6) [facility]UR[facility] [id number] 09:09:00 Test Item Value Reference Range Interpretation Comments URIC ACID (test code = 0774794138) 6.3 mg/dL 3.6-8 Lab Interpretation (test code = Normal 42190-5) [facility] GLUCOSE (AUTOMATED)2019-10-27 08:46:00 Test Item Value Reference Range Interpretation Comments POCT GLU (test code = 7615608068) 165 mg/dL 70-110 H Lab Interpretation (test code = Abnormal 59116-1) [facility] GLUCOSE (AUTOMATED)2019-10-27 06:48:00 Test Item Value Reference Range Interpretation Comments POCT GLU (test code = 8509455888) 103 mg/dL 70-110 Lab Interpretation (test code = Normal 21928-7) [facility] GLUCOSE (AUTOMATED)2019-10-27 05:32:00 Test Item Value Reference Range Interpretation Comments POCT GLU (test code = 6898601558) 82 mg/dL 70-110 Lab Interpretation (test code = Normal 42004-1) [facility] AustinCORONAVIRUS COVID-19 [id number] 04:55:00 Test Item Value Reference Range Interpretation Comments SARS-CoV-2 (test code = Not Detected Not Detected 93083-4) JUAN LUIS (test code = JUAN LUIS) ID NOW COVID-19 Assay is an isothermal nucleic acid amplification test intended for the qualitative detection of nucleic acid from SARS-CoV-2 viral RNA in nasopharyngeal (VES[employer]ILDER) specimens. It is used under Emergency Use [...] indicated. Lab Interpretation Normal (test code = 48225-5) [facility] WITH [id number] 04:50:00 Test Item Value Reference Range Interpretation [...] RDW-SD (test code = 49.4 fL 38.5-51.6 14567-7) RDW-CV (test code = 19.4 % 12.1-15.4 H 788-0) PLT (test code = See_Comment [Automated 777-3) message] The sy stem which generated this result transmitted reference range : 150 - 328 10*3/ ?L. The reference r christine was not used to interpret this result as normal/abnormal . MPV (test code = 11.8 fL 9.8-13 89765-9) IPF % (test code = 2.6 % 1.2-10.7 Platelet count 9921277377) measured by fluorescence method. NRBC/100 WBC (test See_Comment [Automat ed code = 0328343718) message] The system which generated this result transmitted reference range : 0.0 - 10.0 /100 WBCs. The refer ence range was not u sed to interpret th is result as normal/abnormal . NRBC x10^3 (test code <0.01 See_Comment [Auto mated = 1073865036) message] The s ystem which generated this result transmitted reference range : 10*3/?L. The reference range was not used to interpret this result as normal/abnormal . GRAN MAT (NEUT) % 74.7 % (test code = 770-8) IMM GRAN % (test code 0.40 % = 4969122881) LYMPH % (test code = 11.6 % 736-9) MONO % (test code = 10.8 % 5905-5) EOS % (test code = 1.9 % 713-8) BASO % (test code = 0.6 % 706-2) GRAN MAT x10^3(ANC) 7.51 10*3/uL 1.99-6.95 H (test code = 5539635414) IMM GRAN x10^3 (test 0.04 10*3/uL 0-0.06 code = 7743335053) LYMPH x10^3 (test code 1.16 10*3/uL 1.09-3.23 = 731-0) MONO x10^3 (test code 1.08 10*3/uL 0.36-1.02 H = 742-7) EOS x10^3 (test code = 0.19 10*3/uL 0.06-0.53 711-2) BASO x10^3 (test code 0.06 10*3/uL 0.01-0.09 = 704-7) Lab Interpretation Abnormal (test code = 46795-2) [facility]AUTOMATED)2019-10-27 04:33:00 Test Item Value Reference Range Interpretation Comments POCT GLU (test code = 0999120324) 51 mg/dL 70-110 L Lab Interpretation (test code = Abnormal 25057-8) [facility] METABOLIC PANEL (NA, K, CL, CO2, GLUCOSE, BUN, CREATININE, CA)2019-10-27 03:51:00 Test Item Value Reference Range Interpretation Comments NA (test code = 140 mmol/L 135-145 3419515482) K (test code = 4.7 mmol/L 3.5-5 3766842490) CL (test code = 106 mmol/L 98-108 5238253986) CO2 TOTAL (test code = 27 mmol/L 23-31 4928159077) AGAP (test code = 2-16 1906792919) BUN (test code = 59 mg/dL 7-23 H 5975217628) GLUCOSE (test code = <20 70-110 LL 2292867218) CREATININE (test code = 1.57 mg/dL 0.6-1.25 H 8976750293) CALCIUM (test code = 9.6 mg/dL 8.6-10.6 1626775261) eGFR Calculation mL/min/1.73m2 (Non-) (test code = 6753568778) eGFR Calculation mL/min/1.73m2 () (test code = 4949596082) JUAN LUIS (test code = JUAN LUIS) [...] tests). Lab Interpretation Abnormal (test code = 65609-7) [facility] GLUCOSE (AUTOMATED)2019-10-27 03:34:00 Test Item Value Reference Range Interpretation Comments POCT GLU (test code = 9226936237) 69 mg/dL 70-110 L Lab Interpretation (test code = Abnormal 48775-1) [facility] GLUCOSE (AUTOMATED)2019-10-27 03:01:00 Test Item Value Reference Range Interpretation Comments POCT GLU (test code = 4397226769) 26 mg/dL 70-110 LL Lab Interpretation (test code = Abnormal 06254-5) [facility]AUTOMATED)2019-10-01 16:55:00 Test Item Value Reference Range Interpretation Comments POCT GLU (test code = 0924240050) 182 mg/dL 70-110 H Lab Interpretation (test code = Abnormal 96602-6) [facility] METABOLIC PANEL (NA, K, CL, CO2, GLUCOSE, BUN, CREATININE, CA)2019-10-01 13:17:00 Test Item Value Reference Range Interpretation Comments NA (test code = 137 mmol/L 135-145 5540176173) K (test code = 5.1 mmol/L 3.5-5 H 9753735804) CL (test code = 104 mmol/L 98-108 2208526094) CO2 TOTAL (test code = 24 mmol/L 23-31 9276838458) AGAP (test code = 2-16 3550526974) BUN (test code = 40 mg/dL 7-23 H 4559940938) GLUCOSE (test code = 98 mg/dL 70-110 1956619147) CREATININE (test code = 1.72 mg/dL 0.6-1.25 H 3891928322) CALCIUM (test code = 8.3 mg/dL 8.6-10.6 L 7172941576) eGFR Calculation mL/min/1.73m2 (Non-) (test code = 0337393235) eGFR Calculation mL/min/1.73m2 () (test code = 0151830024) JUAN LUIS (test code = JUAN LUIS) [...] tests). Lab Interpretation Abnormal (test code = 26761-6) [facility] GLUCOSE (AUTOMATED)2019-10-01 13:04:00 Test Item Value Reference Range Interpretation Comments POCT GLU (test code = 8490525274) 163 mg/dL 70-110 H Lab Interpretation (test code = Abnormal 93094-9) [facility] GLUCOSE (AUTOMATED)2019-10-01 02:08:00 Test Item Value Reference Range Interpretation Comments POCT GLU (test code = 5083501050) 156 mg/dL 70-110 H Lab Interpretation (test code = Abnormal 94902-7) [facility] GLUCOSE (AUTOMATED)2019-09-30 21:47:00 Test Item Value Reference Range Interpretation Comments POCT GLU (test code = 5741545686) 139 mg/dL 70-110 H Lab Interpretation (test code = Abnormal 32612-2) [facility]CC[facility] (GUAIAC) [id number] 17:06:00 Test Item Value Reference Range Interpretation Comments Occult (guaiac) Blood (test code = Negative Negative 2335-8) Lab Interpretation (test code = Normal 58962-7) [facility] GLUCOSE (AUTOMATED)2019-09-30 17:06:00 Test Item Value Reference Range Interpretation Comments POCT GLU (test code = 2385915871) 83 mg/dL 70-110 Lab Interpretation (test code = Normal 80938-8) [facility] GLUCOSE (AUTOMATED)2019-09-30 13:35:00 Test Item Value Reference Range Interpretation Comments POCT GLU (test code = 9051946347) 225 mg/dL 70-110 H Lab Interpretation (test code = Abnormal 18149-0) [facility] Metabolic Panel (NA, K, CL, CO2, GLUCOSE, BUN, CREATININE, CA)2019-09-30 08:40:00 Test Item Value Reference Range Interpretation Comments NA (test code = 137 mmol/L 135-145 9436134601) K (test code = 4.7 mmol/L 3.5-5 7660617882) CL (test code = 105 mmol/L 98-108 0589333951) CO2 TOTAL (test code = 24 mmol/L 23-31 1861008809) AGAP (test code = 2-16 7824976564) BUN (test code = 45 mg/dL 7-23 H 0668110123) GLUCOSE (test code = 227 mg/dL 70-110 H 8830737131) CREATININE (test code = 1.89 mg/dL 0.6-1.25 H 3384029943) CALCIUM (test code = 8.4 mg/dL 8.6-10.6 L 7830964367) eGFR Calculation mL/min/1.73m2 (Non-) (test code = 8251618514) eGFR Calculation mL/min/1.73m2 () (test code = 6188540242) JUAN LUIS (test code = JUAN LUIS) [...] tests). Lab Interpretation Abnormal (test code = 16964-2) [facility] AustinMagnesium [id number] 08:40:00 Test Item Value Reference Range Interpretation Comments MAGNESIUM (test code = 4201107841) 2.2 mg/dL 1.7-2.4 Lab Interpretation (test code = Normal 53883-4) [facility] AustinCT THORAX WO [id number] 03:37:29 1. 6.4 x 6.9 cm left [...] lymphadenopathy.6. Status post CABG.RL: 6190End of report UnB[facility] StationUrinalysis2020-03-18 02:46:00 Test Item Value Reference Range Interpretation Comments APPEARANCE (test code = Clear Clear 5010522809) COLOR (test code = Straw Yellow A 8088017788) PH (test code = 4.8-8.0 7676194782) SP GRAVITY (test code = 1.003-1.030 5473666128) GLU U QUAL (test code = Normal Normal 6134849933) BLOOD (test code = Negative Negative 5312568257) KETONES (test code = Negative Negative 4763736739) PROTEIN (test code = 100 mg/dL Negative A 2887-8) UROBILIN (test code = Normal Normal 8963855630) BILIRUBIN (test code = Negative Negative 4750948063) NITRITE (test code = Negative Negative 3764198935) LEUK SILVIO (test code = Negative Negative 8048847189) RBC/HPF (test code = See_Comment [Autom ated message] 3303359089) The system [employer] generated this result transmit tennille reference range : 0 - 3 HPF. The refe rence range was not u sed to interpret th is result as normal/abnormal . WBC/HPF (test code = <1 See_Comment [Autom ated message] 3714676280) The system [employer] generated this result transmit tennille reference range : 0 - 5 HPF. The refe rence range was not u sed to interpret th is result as normal/abnormal . BACTERIA (test code = Negative Negative 9947310518) Lab Interpretation (test Abnormal code = 52122-5) [facility] AustinPO[facility] GL[facility]OMATED)2019-09-30 01:30:00 Test Item Value Reference Range Interpretation Comments POCT GLU (test code = 4834473142) 180 mg/dL 70-110 H Lab Interpretation (test code = Abnormal 06920-1) [facility] AustinTroponin [id number] 22:35:00 Test Item Value Reference Range Interpretation Comments TROPONIN I (test 0.029 ng/mL See_Comment [Automated code = 8186957196) message] The system which generated this result [...] ? Lab Interpretation Normal (test code = 95530-7) [facility] AustinN-TERMINAL [id number] 22:35:00 Test Item Value Reference Range Interpretation Comments NT-proBNP (test code 91038 pg/mL See_Comment H [Autom ated = 0215806261) message] The system which generated this result transmitted reference range : <=125. The reference range was not used to interpret this result as normal/abnormal . JUAN LUIS (test code = JUAN LUIS) Biotin has been reported to cause a negative bias, interpret results relative to patient's use of biotin. Lab Interpretation Abnormal (test code = 56849-7) [facility] AustinXR FOOT 3+ VW [id number] 22:25:411. No acute fracture. EXAM: Right foot [...] swelling is seen in the midfoot.IMPRESSION1.No acute fracture.[facility] 1 [id number] 22:23:02CHEST ONE VIEW HISTORY: ?SOB TECHNIQUE: ?AP [...] lefthemidiaphragm2. Small left pleural effusion and mild cardiomegalyUnBaylor Scott & [facility] StationBathe [facility] center Metabolic Panel (NA, K, CL, CO2, GLUCOSE, BUN, CREATININE, CA)2019-09-29 22:23:00 Test Item Value Reference Range Interpretation Comments NA (test code = 136 mmol/L 135-145 2723004891) K (test code = 5.3 mmol/L 3.5-5 H 2159984709) CL (test code = 104 mmol/L 98-108 3386481270) CO2 TOTAL (test code = 23 mmol/L 23-31 3545579765) AGAP (test code = 2-16 5815681333) BUN (test code = 50 mg/dL 7-23 H 9508643260) GLUCOSE (test code = 76 mg/dL 70-110 1935978358) CREATININE (test code = 1.92 mg/dL 0.6-1.25 H 9671591133) CALCIUM (test code = 8.6 mg/dL 8.6-10.6 0496942436) eGFR Calculation mL/min/1.73m2 (Non-) (test code = 8863463243) eGFR Calculation mL/min/1.73m2 () (test code = 3721136732) JUAN LUIS (test code = JUAN LUIS) [...] tests). Lab Interpretation Abnormal (test code = 03222-1) [facility] AustinHepatic Function Panel (ALB, T.PRO, BILI T, BU/BC, ALT, AST, ALK PHOS)2019-09-29 22:23:00 Test Item Value Reference Range Interpretation Comments TOTAL BILI (test code = 1689455818) 0.3 mg/dL 0.1-1.1 BILI UNCON (test code = 5729565290) 0.2 mg/dL 0.1-1.1 BILI CONJ (test code = 9303118706) 0.0 mg/dL 0-0.3 T PROTEIN (test code = 7413898971) 6.3 g/dL 6.3-8.2 ALBUMIN (test code = 5417873453) 3.1 g/dL 3.5-5 L ALK PHOS (test code = 9131866876) 95 U/L 34-122 ALTv (test code = 1742-6) 15 U/L 5-50 AST(SGOT) (test code = 9218593333) 19 U/L 13-40 Lab Interpretation (test code = Abnormal 40205-1) [facility] AustinaPTT2020-03-17 22:13:00 Test Item Value Reference Range Interpretation Comments APTT Patient (test code = See_Comment [ Automated message] 3173-2) The system whic h generated this result transmitted ref erence range: 26 - 36 Seconds. The re ference range was not u sed to interpret this result as normal/abnor mal. Lab Interpretation (test Normal code = 63477-2) [facility] AustinProthrombin Time (PT) / [id number] 22:13:00 Test Item Value Reference Range Interpretation [...] tions. Lab Interpretation (test Normal code = 00988-9) [facility] AustinCBC WITH [id number] 22:09:00 Test Item Value Reference Range Interpretation Comments WBC (test code = See_Comment [Automated 5390-2) message] The sy stem which generated this result transmitted reference range : 4.20 - 10.70 10*3/?L. The reference range was not used to interpret this result as normal/abnormal . RBC (test code = See_Comment L [Automated 119-8) message] The sy stem which generated this [...] (test code = 55.0 fL 38.5-51.6 H 23799-5) RDW-CV (test code = 22.0 % 12.1-15.4 H 788-0) PLT (test code = See_Comment H [Automated 777-3) message] The sy stem which generated this result transmitted reference range : 150 - 328 10*3/ ?L. The reference r christine was not used to interpret this result as normal/abnormal . MPV (test code = 11.1 fL 9.8-13 95875-9) NRBC/100 WBC (test See_Comment [Automat ed code = 0941071098) message] The system which generated this result transmitted reference range : 0.0 - 10.0 /100 WBCs. The refer ence range was not u sed to interpret th is result as normal/abnormal . NRBC x10^3 (test code <0.01 See_Comment [Auto mated = 7870301238) message] The s ystem which generated this result transmitted reference range : 10*3/?L. The reference range was not used to interpret this result as normal/abnormal . GRAN MAT (NEUT) % 65.4 % (test code = 770-8) IMM GRAN % (test code 0.30 % = 6803472378) LYMPH % (test code = 18.2 % 736-9) MONO % (test code = 10.9 % 5905-5) EOS % (test code = 4.3 % 713-8) BASO % (test code = 0.9 % 706-2) GRAN MAT x10^3(ANC) 5.73 10*3/uL 1.99-6.95 (test code = 3660255519) IMM GRAN x10^3 (test 0.03 10*3/uL 0-0.06 code = 4146415910) LYMPH x10^3 (test code 1.60 10*3/uL 1.09-3.23 = 731-0) MONO x10^3 (test code 0.96 10*3/uL 0.36-1.02 = 742-7) EOS x10^3 (test code = 0.38 10*3/uL 0.06-0.53 711-2) BASO x10^3 (test code 0.08 10*3/uL 0.01-0.09 = 704-7) Lab Interpretation Abnormal (test code = 72432-4) [facility] AustinCOMP. METABOLIC PANEL (68108)2019-09-29 16:09:00 Test Item Value Reference Range Interpretation Comments NA (test code = 136 mmol/L 135-145 0891053722) K (test code = 5.4 mmol/L 3.5-5 H 6410853865) CL (test code = 105 mmol/L 98-108 3246223470) CO2 TOTAL (test code = 23 mmol/L 23-31 2311191018) AGAP (test code = 2-16 4231185885) BUN (test code = 53 mg/dL 7-23 H 9909471025) GLUCOSE (test code = 242 mg/dL 70-110 H 8365627543) CREATININE (test code = 1.97 mg/dL 0.6-1.25 H 3831317605) TOTAL BILI (test code = 0.1 mg/dL 0.1-1.0 5736356779) CALCIUM (test code = 8.6 mg/dL 8.6-10.6 7159533033) T PROTEIN (test code = 6.0 g/dL 6.3-8.2 L 6678784681) ALBUMIN (test code = 2.9 g/dL 3.5-5 L 3179825243) ALK PHOS (test code = 91 U/L 34-122 0655373063) ALTv (test code = 15 U/L 5-50 1742-6) AST(SGOT) (test code = 22 U/L 13-40 2036259362) eGFR Calculation mL/min/1.73m2 (Non-) (test code = 3510786340) eGFR Calculation mL/min/1.73m2 () (test code = 3782059268) JUAN LUIS (test code = JUAN LUIS) [...] tests). Lab Interpretation Abnormal (test code = 34516-7) [facility] WITH [id number] 15:42:00 Test Item Value Reference Range Interpretation Comments WBC (test code = See_Comment [Automated 1394-2) message] The sy stem which generated this result transmitted reference range : 4.20 - 10.70 10*3/?L. The reference range was not used to interpret this result as normal/abnormal . RBC (test code = See_Comment L [Automated 319-8) message] The sy stem which generated this [...] (test code = 55.4 fL 38.5-51.6 H 63691-0) RDW-CV (test code = 22.5 % 12.1-15.4 H 788-0) PLT (test code = See_Comment [Automated 777-3) message] The sy stem which generated this result transmitted reference range : 150 - 328 10*3/ ?L. The reference r christine was not used to interpret this result as normal/abnormal . MPV (test code = 12.0 fL 9.8-13 94282-4) NRBC/100 WBC (test See_Comment [Automat ed code = 7033820693) message] The system which generated this result transmitted reference range : 0.0 - 10.0 /100 WBCs. The refer ence range was not u sed to interpret th is result as normal/abnormal . NRBC x10^3 (test code <0.01 See_Comment [Auto mated = 0882809248) message] The s ystem which generated this result transmitted reference range : 10*3/?L. The reference range was not used to interpret this result as normal/abnormal . GRAN MAT (NEUT) % 71.8 % (test code = 770-8) IMM GRAN % (test code 0.40 % = 3955152109) LYMPH % (test code = 13.9 % 736-9) MONO % (test code = 9.4 % 5905-5) EOS % (test code = 3.8 % 713-8) BASO % (test code = 0.7 % 706-2) GRAN MAT x10^3(ANC) 5.49 10*3/uL 1.99-6.95 (test code = 6488946400) IMM GRAN x10^3 (test 0.03 10*3/uL 0-0.06 code = 6323211503) LYMPH x10^3 (test code 1.06 10*3/uL 1.09-3.23 L = 731-0) MONO x10^3 (test code 0.72 10*3/uL 0.36-1.02 = 742-7) EOS x10^3 (test code = 0.29 10*3/uL 0.06-0.53 711-2) BASO x10^3 (test code 0.05 10*3/uL 0.01-0.09 = 704-7) Lab Interpretation Abnormal (test code = 25689-2) [facility] [id number] 15:03:28HISTORY: S/P CABG. TECHNIQUE: PA and lateral [...] COPD, minimal congestion/atelectatic changes inthe left lung base.[facility], Radiant Results Inft User - 09/29/2019 10:04 [...] minimal congestion/atelectatic changes inthe left lung base. [facility] O[facility] [id number] 00:00:00Consult received and chart reviewed via [employer]. ?Please refer to progress note for details. ? Gordo [phone] pgr.[facility] OCC[facility] [id number] 00:00:00Consult received and verbal order placed 09-21-2019 for patient seen in clinic 09-21-2019. ?Please refer to progress note for details. Gordo [phone] pgr.[facility] CHEST 2 [id number] 01:43:48Impression:1. Persistent but improved left pleural effusion [...] surgery 2 weeks ago Ordering [facility].Comparison: AugustFindings:Median sternotomy present. Large cardiac silhouette is seen. Small lefteffusion and basilar atelectasis is present. This has improved. Nopneumothorax. No lobar consolidation. Bone demineralization stable. Theremainder is unchanged.IMPRESSIONImpression:1. Persistent but improved left pleural effusion and left basilaratelectasis.[facility] (AUTOMATED)2019-09-15 18:20:00 Test Item Value Reference Range Interpretation Comments POCT GLU (test code = 8030538710) 160 mg/dL 70-110 H Lab Interpretation (test code = Abnormal 92835-9) [facility] [id number] 18:07:00 Test Item Value Reference Range Interpretation Comments SPUTUM CULTURE 1+ Respiratory alla: (test code = Commensal upper respiratory 622-1) microorganisms only. Gram stain (test Occasional (Rare) code = 664-3) Polymorphonuclear leukocytes JUAN LUIS (test code = Bacterial pathogens JUAN LUIS) associated with lower respiratory infections were not identified, which include Pseudomonas aeruginosa and Staphylococcus aureus (MRSA or MSSA). [facility] (NA, K, CL, CO2, GLUCOSE, BUN, CREATININE, CA)2019-09-15 17:31:00 Test Item Value Reference Range Interpretation Comments NA (test code = 137 mmol/L 135-145 7087376241) K (test code = 4.2 mmol/L 3.5-5 4974873063) CL (test code = 99 mmol/L 98-108 4245237758) CO2 TOTAL (test code = 30 mmol/L 23-31 7452835252) AGAP (test code = 2-16 2537842403) BUN (test code = 31 mg/dL 7-23 H 7089863437) GLUCOSE (test code = 156 mg/dL 70-110 H 8028853361) CREATININE (test code = 0.94 mg/dL 0.6-1.25 7318644416) CALCIUM (test code = 8.1 mg/dL 8.6-10.6 L 3878911710) eGFR Calculation mL/min/1.73m2 (Non-) (test code = 4781661432) eGFR Calculation mL/min/1.73m2 () (test code = 7310048462) JUAN LUIS (test code = JUAN LUIS) [...] tests). Lab Interpretation Abnormal (test code = 23733-2) [facility] WITH [id number] 17:11:00 Test Item Value Reference Range Interpretation [...] (test code = 55.8 fL 38.5-51.6 H 70072-2) RDW-CV (test code = 22.6 % 12.1-15.4 H 788-0) PLT (test code = See_Comment H [Automated 777-3) message] The sy stem which generated this result transmitted reference range : 150 - 328 10*3/ ?L. The reference r christine was not used to interpret this result as normal/abnormal . MPV (test code = 10.6 fL 9.8-13 24719-7) NRBC/100 WBC (test See_Comment [Automat ed code = 5532106919) message] The system which generated this result transmitted reference range : 0.0 - 10.0 /100 WBCs. The refer ence range was not u sed to interpret th is result as normal/abnormal . NRBC x10^3 (test code <0.01 See_Comment [Auto mated = 5215572619) message] The s ystem which generated this result transmitted reference range : 10*3/?L. The reference range was not used to interpret this result as normal/abnormal . GRAN MAT (NEUT) % 78.3 % (test code = 770-8) IMM GRAN % (test code 0.30 % = 2747040301) LYMPH % (test code = 11.7 % 736-9) MONO % (test code = 7.2 % 5905-5) EOS % (test code = 2.2 % 713-8) BASO % (test code = 0.3 % 706-2) GRAN MAT x10^3(ANC) 9.12 10*3/uL 1.99-6.95 H (test code = 3981217919) IMM GRAN x10^3 (test 0.04 10*3/uL 0-0.06 code = 4838200825) LYMPH x10^3 (test code 1.36 10*3/uL 1.09-3.23 = 731-0) MONO x10^3 (test code 0.84 10*3/uL 0.36-1.02 = 742-7) EOS x10^3 (test code = 0.26 10*3/uL 0.06-0.53 711-2) BASO x10^3 (test code 0.03 10*3/uL 0.01-0.09 = 704-7) Lab Interpretation Abnormal (test code = 86605-5) [facility] GLUCOSE (AUTOMATED)2019-09-15 14:16:00 Test Item Value Reference Range Interpretation Comments POCT GLU (test code = 7059189250) 114 mg/dL 70-110 H Lab Interpretation (test code = Abnormal 37018-6) [facility] GLUCOSE (AUTOMATED)2019-09-15 03:22:00 Test Item Value Reference Range Interpretation Comments POCT GLU (test code = 4385937328) 128 mg/dL 70-110 H Lab Interpretation (test code = Abnormal 01617-2) [facility] GLUCOSE (AUTOMATED)2019-09-14 22:37:00 Test Item Value Reference Range Interpretation Comments POCT GLU (test code = 9327442199) 133 mg/dL 70-110 H Lab Interpretation (test code = Abnormal 99015-4) [facility] GLUCOSE (AUTOMATED)2019-09-14 18:45:00 Test Item Value Reference Range Interpretation Comments POCT GLU (test code = 9206824235) 143 mg/dL 70-110 H Lab Interpretation (test code = Abnormal 06324-3) [facility] 1 [id number] 14:19:08 Bilateral hazy and patchy airspace opacities [...] leftlung may represent an atelectasis or pneumonia. [facility]2019-09-14 13:30:00 Test Item Value Reference Range Interpretation Comments POCT GLU (test code = 8876619931) 78 mg/dL 70-110 Lab Interpretation (test code = Normal 74787-1) [facility] (NA, K, CL, CO2, GLUCOSE, BUN, CREATININE, CA)2019-09-14 10:04:00 Test Item Value Reference Range Interpretation Comments NA (test code = 136 mmol/L 135-145 7858419473) K (test code = 4.2 mmol/L 3.5-5 0412708231) CL (test code = 102 mmol/L 98-108 8646235809) CO2 TOTAL (test code = 30 mmol/L 23-31 2007414181) AGAP (test code = 2-16 6480327911) BUN (test code = 33 mg/dL 7-23 H 4105997103) GLUCOSE (test code = 98 mg/dL 70-110 9981114288) CREATININE (test code = 1.00 mg/dL 0.6-1.25 9873987586) CALCIUM (test code = 7.5 mg/dL 8.6-10.6 L 3191915040) eGFR Calculation mL/min/1.73m2 (Non-) (test code = 1175387096) eGFR Calculation mL/min/1.73m2 () (test code = 9533334875) JUAN LUIS (test code = JUAN LUIS) [...] tests). Lab Interpretation Abnormal (test code = 53984-8) [facility] Test Item Value Reference Range Interpretation Comments MAGNESIUM (test code = 8285219579) 2.1 mg/dL 1.7-2.4 Lab Interpretation (test code = Normal 85481-4) [facility] GLUCOSE (AUTOMATED)2019-09-14 08:13:00 Test Item Value Reference Range Interpretation Comments POCT GLU (test code = 3821674704) 71 mg/dL 70-110 Lab Interpretation (test code = Normal 84315-7) [facility] GLUCOSE (AUTOMATED)2019-09-14 02:25:00 Test Item Value Reference Range Interpretation Comments POCT GLU (test code = 6944349725) 53 mg/dL 70-110 L Lab Interpretation (test code = Abnormal 67253-5) [facility] GLUCOSE (AUTOMATED)2019-09-13 23:06:00 Test Item Value Reference Range Interpretation Comments POCT GLU (test code = 8691827273) 140 mg/dL 70-110 H Lab Interpretation (test code = Abnormal 34283-1) [facility] GLUCOSE (AUTOMATED)2019-09-13 17:45:00 Test Item Value Reference Range Interpretation Comments POCT GLU (test code = 4728825526) 260 mg/dL 70-110 H Lab Interpretation (test code = Abnormal 82402-9) [facility] GLUCOSE (AUTOMATED)2019-09-13 14:07:00 Test Item Value Reference Range Interpretation Comments POCT GLU (test code = 2625145493) 194 mg/dL 70-110 H Lab Interpretation (test code = Abnormal 41669-4) [facility] (NA, K, CL, CO2, GLUCOSE, BUN, CREATININE, CA)2019-09-13 10:14:00 Test Item Value Reference Range Interpretation Comments NA (test code = 135 mmol/L 135-145 8447990875) K (test code = 4.4 mmol/L 3.5-5 8188972540) CL (test code = 101 mmol/L 98-108 2771745072) CO2 TOTAL (test code = 27 mmol/L 23-31 5838656372) AGAP (test code = 2-16 6239481086) BUN (test code = 34 mg/dL 7-23 H 0413494308) GLUCOSE (test code = 178 mg/dL 70-110 H 1217300959) CREATININE (test code = 1.02 mg/dL 0.6-1.25 1847182513) CALCIUM (test code = 7.8 mg/dL 8.6-10.6 L 4703625125) eGFR Calculation mL/min/1.73m2 (Non-) (test code = 7569419947) eGFR Calculation mL/min/1.73m2 () (test code = 4865246883) JUAN LUIS (test code = JUAN LUIS) [...] tests). Lab Interpretation Abnormal (test code = 50107-1) [facility] 10:14:00 Test Item Value Reference Range Interpretation Comments MAGNESIUM (test code = 0628452902) 2.2 mg/dL 1.7-2.4 Lab Interpretation (test code = Normal 59081-6) [facility] WITH [id number] 10:01:00 Test Item Value Reference Range Interpretation [...] (test code = 57.0 fL 38.5-51.6 H 23386-0) RDW-CV (test code = 22.5 % 12.1-15.4 H 788-0) PLT (test code = See_Comment [Automated 777-3) message] The sy stem which generated this result transmitted reference range : 150 - 328 10*3/ ?L. The reference r christine was not used to interpret this result as normal/abnormal . MPV (test code = 10.4 fL 9.8-13 32273-2) NRBC/100 WBC (test See_Comment [Automat ed code = 5169998705) message] The system which generated this result transmitted reference range : 0.0 - 10.0 /100 WBCs. The refer ence range was not u sed to interpret th is result as normal/abnormal . NRBC x10^3 (test code <0.01 See_Comment [Auto mated = 2593433614) message] The s ystem which generated this result transmitted reference range : 10*3/?L. The reference range was not used to interpret this result as normal/abnormal . GRAN MAT (NEUT) % 77.6 % (test code = 770-8) IMM GRAN % (test code 0.70 % = 5738206867) LYMPH % (test code = 11.2 % 736-9) MONO % (test code = 8.7 % 5905-5) EOS % (test code = 1.5 % 713-8) BASO % (test code = 0.3 % 706-2) GRAN MAT x10^3(ANC) 9.01 10*3/uL 1.99-6.95 H (test code = 3755673236) IMM GRAN x10^3 (test 0.08 10*3/uL 0-0.06 H code = 6009565737) LYMPH x10^3 (test code 1.30 10*3/uL 1.09-3.23 = 731-0) MONO x10^3 (test code 1.01 10*3/uL 0.36-1.02 = 742-7) EOS x10^3 (test code = 0.17 10*3/uL 0.06-0.53 711-2) BASO x10^3 (test code 0.03 10*3/uL 0.01-0.09 = 704-7) Lab Interpretation Abnormal (test code = 33714-9) [facility]2020[facility] 07:12:00 Test Item Value Reference Range Interpretation Comments Procalcitonin (test 0.14 ng/mL <0.07 H code = 7979193233) JUAN LUIS (test code = JUAN LUIS) [...] biotics/default.asp Lab Interpretation Abnormal (test code = 21324-6) [facility]:20:00 Test Item Value Reference Range Interpretation Comments POCT GLU (test code = 3320733917) 227 mg/dL 70-110 H Lab Interpretation (test code = Abnormal 68306-5) [facility] AustinTROP[facility] [id number] 00:35:00 Test Item Value Reference Range Interpretation Comments TROPONIN I (test 0.087 ng/mL See_Comment H [Automated code = 2595489557) message] The system which generated this result [...] ? Lab Interpretation Abnormal (test code = 49786-4) [facility]2020-[facility] 00:23:00 Test Item Value Reference Range Interpretation Comments MAGNESIUM (test code = 7754926753) 2.1 mg/dL 1.7-2.4 Lab Interpretation (test code = Normal 12239-7) [facility] GLUCOSE (AUTOMATED)2019-09-12 22:52:00 Test Item Value Reference Range Interpretation Comments POCT GLU (test code = 5532085514) 135 mg/dL 70-110 H Lab Interpretation (test code = Abnormal 45061-6) [facility] GLUCOSE (AUTOMATED)2019-09-12 19:33:00 Test Item Value Reference Range Interpretation Comments POCT GLU (test code = 9360528439) 150 mg/dL 70-110 H Lab Interpretation (test code = Abnormal 05615-8) [facility]2020-02-29 18:28:00 Test Item Value Reference Range Interpretation Comments APTT Patient (test See_Comment [Automat ed code = 3173-2) message] The system which generated this result transmitted reference range : 23 - 38 Seconds . The reference range was not used to interpr et this result as normal/abnormal . JUAN LUIS (test code = JUAN LUIS) The [facility] patient population mean normal value for aPTT is 30 seconds. Lab Interpretation Normal (test code = 21932-3) [facility] 1 [id number] 16:45:37Impression:1. Left basilar atelectasis or pneumonia with [...] and osseousstructures unremarkable. Cardiac silhouette is enlarged. [facility], Radiant Results Inft User - 09/12/2019 [...] dictation.2. Central congestion without edema.[facility] Whole [id number] 16:20:00 Test Item Value Reference Range Interpretation Comments LACTIC ACID (test code = 1.00 mmol/L 0.5-2.2 3753506811) Lab Interpretation (test code = Normal 41427-3) [facility] [id number] 16:11:00 Test Item Value Reference Range Interpretation Comments TROPONIN I (test 0.104 ng/mL See_Comment H [Automated code = 3056360233) message] The system which generated this result [...] ? Lab Interpretation Abnormal (test code = 63231-5) [facility] METABOLIC PANEL (51723)2019-09-12 16:09:00 Test Item Value Reference Range Interpretation Comments NA (test code = 135 mmol/L 135-145 5381374291) K (test code = 5.1 mmol/L 3.5-5 H 8740145803) CL (test code = 101 mmol/L 98-108 5457576405) CO2 TOTAL (test code = 27 mmol/L 23-31 5521966936) AGAP (test code = 2-16 6052780421) BUN (test code = 39 mg/dL 7-23 H 2290574992) GLUCOSE (test code = 118 mg/dL 70-110 H 9399047072) CREATININE (test code = 1.12 mg/dL 0.6-1.25 2435104656) TOTAL BILI (test code = 0.4 mg/dL 0.1-1.1 8307218126) CALCIUM (test code = 8.6 mg/dL 8.6-10.6 3864291897) T PROTEIN (test code = 6.1 g/dL 6.3-8.2 L 1375733262) ALBUMIN (test code = 3.1 g/dL 3.5-5 L 2650749923) ALK PHOS (test code = 76 U/L 34-122 0163671914) ALTv (test code = 13 U/L 5-50 1742-6) AST(SGOT) (test code = 23 U/L 13-40 5724483164) eGFR Calculation mL/min/1.73m2 (Non-) (test code = 8255693568) eGFR Calculation mL/min/1.73m2 () (test code = 8805571335) JUAN LUIS (test code = JUAN LUIS) [...] tests). Lab Interpretation Abnormal (test code = 16301-7) [facility]2020-02-29 16:09:00 Test Item Value Reference Range Interpretation Comments LIPASE (test code = 5594293728) 29 U/L 0-220 Lab Interpretation (test code = Normal 96333-0) [facility]2020-02-29 16:09:00 Test Item Value Reference Range Interpretation Comments MAGNESIUM (test code = 3641941169) 2.3 mg/dL 1.7-2.4 Lab Interpretation (test code = Normal 84038-1) [facility] AustinN-TERMINAL [id number] 16:09:00 Test Item Value Reference Range Interpretation Comments NT-proBNP (test code 35601 pg/mL See_Comment H [Autom ated = 3443182616) message] The system which generated this result transmitted reference range : <=125. The reference range was not used to interpret this result as normal/abnormal . JUAN LUIS (test code = JUAN LUIS) Biotin has been reported to cause a negative bias, interpret results relative to patient's use of biotin. Lab Interpretation Abnormal (test code = 27368-7) [facility] AustinPROTHROMBIN TIME / [id number] 15:51:00 Test Item Value Reference Range Interpretation [...] tions. Lab Interpretation (test Normal code = 12756-4) [facility] WITH [id number] 15:42:00 Test Item Value Reference Range Interpretation [...] (test code = 57.1 fL 38.5-51.6 H 50006-2) RDW-CV (test code = 22.9 % 12.1-15.4 H 788-0) PLT (test code = See_Comment H [Automated 777-3) message] The system which generated this result transmit tennille reference range : 150 - 328 10*3/ ?L. The reference range was not u sed to interpret th is result as normal/abnormal . MPV (test code = 11.1 fL 9.8-13 35141-7) NRBC/100 WBC (test See_Comment [Automat ed code = 9550969872) message] The system which generated this result transmit tennille reference range : 0.0 - 10.0 /100 WBCs. The reference range was not used to interpret this result as normal/abnormal . NRBC x10^3 (test code <0.01 See_Comment [Auto mated = 1052598319) message] The system which generated this result transmit tennille reference range : 10*3/?L. The reference range was not used to interpret this result as normal/abnormal . GRAN MAT (NEUT) % 76.8 % (test code = 770-8) IMM GRAN % (test code 0.70 % = 0271505147) LYMPH % (test code = 11.4 % 736-9) MONO % (test code = 8.6 % 5905-5) EOS % (test code = 2.0 % 713-8) BASO % (test code = 0.5 % 706-2) GRAN MAT x10^3(ANC) 11.37 10*3/uL 1.99-6.95 H (test code = 5222868068) IMM GRAN x10^3 (test 0.11 10*3/uL 0-0.06 H code = 0272810212) LYMPH x10^3 (test code 1.68 10*3/uL 1.09-3.23 = 731-0) MONO x10^3 (test code 1.28 10*3/uL 0.36-1.02 H = 742-7) EOS x10^3 (test code = 0.29 10*3/uL 0.06-0.53 711-2) BASO x10^3 (test code 0.07 10*3/uL 0.01-0.09 = 704-7) Lab Interpretation Abnormal (test code = 13813-5) [facility] GLUCOSE (AUTOMATED)2019-09-12 15:27:00 Test Item Value Reference Range Interpretation Comments POCT GLU (test code = 4419842791) 128 mg/dL 70-110 H Lab Interpretation (test code = Abnormal 27395-6) [facility] GLUCOSE (AUTOMATED)2019-09-07 18:25:00 Test Item Value Reference Range Interpretation Comments POCT GLU (test code = 7938557551) 92 mg/dL 70-110 Lab Interpretation (test code = Normal 69676-5) [facility] GLUCOSE (AUTOMATED)2019-09-07 14:39:00 Test Item Value Reference Range Interpretation Comments POCT GLU (test code = 0826152468) 118 mg/dL 70-110 H Lab Interpretation (test code = Abnormal 10853-6) [facility] GLUCOSE (AUTOMATED)2019-09-07 03:00:00 Test Item Value Reference Range Interpretation Comments POCT GLU (test code = 0666230497) 111 mg/dL 70-110 H Lab Interpretation (test code = Abnormal 64596-1) [facility] GLUCOSE (AUTOMATED)2019-09-06 23:30:00 Test Item Value Reference Range Interpretation Comments POCT GLU (test code = 1624415603) 66 mg/dL 70-110 L Lab Interpretation (test code = Abnormal 02627-1) [facility] GLUCOSE (AUTOMATED)2019-09-06 18:24:00 Test Item Value Reference Range Interpretation Comments POCT GLU (test code = 9474685363) 94 mg/dL 70-110 Lab Interpretation (test code = Normal 61534-3) [facility] GLUCOSE (AUTOMATED)2019-09-06 14:00:00 Test Item Value Reference Range Interpretation Comments POCT GLU (test code = 6055361271) 158 mg/dL 70-110 H Lab Interpretation (test code = Abnormal 53310-9) [facility] METABOLIC PANEL (NA, K, CL, CO2, GLUCOSE, BUN, CREATININE, CA)2019-09-06 07:25:00 Test Item Value Reference Range Interpretation Comments NA (test code = 134 mmol/L 135-145 L 5098146740) K (test code = 4.1 mmol/L 3.5-5 1016886708) CL (test code = 101 mmol/L 98-108 9493147735) CO2 TOTAL (test code = 27 mmol/L 23-31 9430475196) AGAP (test code = 2-16 7635310203) BUN (test code = 44 mg/dL 7-23 H 5304357486) GLUCOSE (test code = 138 mg/dL 70-110 H 4075471661) CREATININE (test code = 0.95 mg/dL 0.6-1.25 3735189670) CALCIUM (test code = 7.6 mg/dL 8.6-10.6 L 2805815020) eGFR Calculation mL/min/1.73m2 (Non-) (test code = 5315707456) eGFR Calculation mL/min/1.73m2 () (test code = 3851485594) JUAN LUIS (test code = JUAN LUIS) [...] tests). Lab Interpretation Abnormal (test code = 53367-7) [facility]2020-[facility]-23 07:25:00 Test Item Value Reference Range Interpretation Comments PHOSPHORUS (test code = 8038658706) 2.6 mg/dL 2.5-5 Lab Interpretation (test code = Normal 78704-6) [facility] WITH [id number] 07:10:00 Test Item Value Reference Range Interpretation Comments WBC (test code = See_Comment [Automated 9690-2) message] The sy stem which generated this result transmitted reference range : 4.20 - 10.70 10*3/?L. The reference range was not used to interpret this result as normal/abnormal . RBC (test code = See_Comment L [Automated 339-8) message] The sy stem which generated this [...] (test code = 59.2 fL 38.5-51.6 H 53019-6) RDW-CV (test code = 22.7 % 12.1-15.4 H 788-0) PLT (test code = See_Comment [Automated 777-3) message] The sy stem which generated this result transmitted reference range : 150 - 328 10*3/ ?L. The reference r christine was not used to interpret this result as normal/abnormal . MPV (test code = 11.4 fL 9.8-13 58357-2) NRBC/100 WBC (test See_Comment [Automat ed code = 9436411490) message] The system which generated this result transmitted reference range : 0.0 - 10.0 /100 WBCs. The refer ence range was not u sed to interpret th is result as normal/abnormal . NRBC x10^3 (test code <0.01 See_Comment [Auto mated = 6731703308) message] The s ystem which generated this result transmitted reference range : 10*3/?L. The reference range was not used to interpret this result as normal/abnormal . GRAN MAT (NEUT) % 73.2 % (test code = 770-8) IMM GRAN % (test code 0.50 % = 1949524142) LYMPH % (test code = 11.5 % 736-9) MONO % (test code = 11.2 % 5905-5) EOS % (test code = 3.3 % 713-8) BASO % (test code = 0.3 % 706-2) GRAN MAT x10^3(ANC) 7.78 10*3/uL 1.99-6.95 H (test code = 0983824462) IMM GRAN x10^3 (test 0.05 10*3/uL 0-0.06 code = 2278485581) LYMPH x10^3 (test code 1.22 10*3/uL 1.09-3.23 = 731-0) MONO x10^3 (test code 1.19 10*3/uL 0.36-1.02 H = 742-7) EOS x10^3 (test code = 0.35 10*3/uL 0.06-0.53 711-2) BASO x10^3 (test code 0.03 10*3/uL 0.01-0.09 = 704-7) Lab Interpretation Abnormal (test code = 46048-9) [facility] [id number] 01:35:34Impression: Stable findings with obliteration of the [...] of the left hemidiaphragm and the leftcostophrenic angle..[facility] GLUCOSE (AUTOMATED)2019-09-06 01:25:00 Test Item Value Reference Range Interpretation Comments POCT GLU (test code = 3350158435) 98 mg/dL 70-110 Lab Interpretation (test code = Normal 72642-1) [facility] GLUCOSE (AUTOMATED)2019-09-05 23:11:00 Test Item Value Reference Range Interpretation Comments POCT GLU (test code = 5422450181) 76 mg/dL 70-110 Lab Interpretation (test code = Normal 75045-4) [facility] GLUCOSE (AUTOMATED)2019-09-05 18:45:00 Test Item Value Reference Range Interpretation Comments POCT GLU (test code = 8034929072) 99 mg/dL 70-110 Lab Interpretation (test code = Normal 91086-5) [facility] 13:48:00 Test Item Value Reference Range Interpretation Comments POCT GLU (test code = 3225904453) 229 mg/dL 70-110 H Lab Interpretation (test code = Abnormal 99323-0) [facility] 10:04:00 Test Item Value Reference Range Interpretation Comments PHOSPHORUS (test code = 0000372116) 3.4 mg/dL 2.5-5 Lab Interpretation (test code = Normal 78811-9) [facility] (NA, K, CL, CO2, GLUCOSE, BUN, CREATININE, CA)2019-09-05 10:04:00 Test Item Value Reference Range Interpretation Comments NA (test code = 135 mmol/L 135-145 6940287697) K (test code = 3.7 mmol/L 3.5-5 7661095217) CL (test code = 103 mmol/L 98-108 5721213905) CO2 TOTAL (test code = 26 mmol/L 23-31 1010425935) AGAP (test code = 2-16 0265577786) BUN (test code = 40 mg/dL 7-23 H 0301863907) GLUCOSE (test code = 173 mg/dL 70-110 H 2869550250) CREATININE (test code = 1.17 mg/dL 0.6-1.25 8865980838) CALCIUM (test code = 7.4 mg/dL 8.6-10.6 L 7392462492) eGFR Calculation mL/min/1.73m2 (Non-) (test code = 0868876451) eGFR Calculation mL/min/1.73m2 () (test code = 0497806395) JUAN LUIS (test code = JUAN LUIS) [...] tests). Lab Interpretation Abnormal (test code = 70730-1) [facility] 10[facility]04:00 Test Item Value Reference Range Interpretation Comments MAGNESIUM (test code = 5001677798) 2.2 mg/dL 1.7-2.4 Lab Interpretation (test code = Normal 18888-3) [facility] WITH [id number] 09:53:00 Test Item Value Reference Range Interpretation Comments WBC (test code = See_Comment H [Automated 6690-2) message] The sy stem which generated this result transmitted reference range : 4.20 - 10.70 10*3/?L. The reference range was not used to interpret this result as normal/abnormal . RBC (test code = See_Comment L [Automated 319-8) message] The sy stem which generated this [...] (test code = 55.0 fL 38.5-51.6 H 20513-2) RDW-CV (test code = 22.1 % 12.1-15.4 H 788-0) PLT (test code = See_Comment L [Automated 777-3) message] The sy stem which generated this result transmitted reference range : 150 - 328 10*3/ ?L. The reference r christine was not used to interpret this result as normal/abnormal . MPV (test code = 10.6 fL 9.8-13 47814-0) NRBC/100 WBC (test See_Comment [Automat ed code = 3162234257) message] The system which generated this result transmitted reference range : 0.0 - 10.0 /100 WBCs. The refer ence range was not u sed to interpret th is result as normal/abnormal . NRBC x10^3 (test code <0.01 See_Comment [Auto mated = 2078865759) message] The s ystem which generated this result transmitted reference range : 10*3/?L. The reference range was not used to interpret this result as normal/abnormal . GRAN MAT (NEUT) % 78.0 % (test code = 770-8) IMM GRAN % (test code 0.70 % = 8479915308) LYMPH % (test code = 8.8 % 736-9) MONO % (test code = 10.6 % 5905-5) EOS % (test code = 1.6 % 713-8) BASO % (test code = 0.3 % 706-2) GRAN MAT x10^3(ANC) 9.06 10*3/uL 1.99-6.95 H (test code = 0106242360) IMM GRAN x10^3 (test 0.08 10*3/uL 0-0.06 H code = 6244137783) LYMPH x10^3 (test code 1.02 10*3/uL 1.09-3.23 L = 731-0) MONO x10^3 (test code 1.23 10*3/uL 0.36-1.02 H = 742-7) EOS x10^3 (test code = 0.18 10*3/uL 0.06-0.53 711-2) BASO x10^3 (test code 0.03 10*3/uL 0.01-0.09 = 704-7) Lab Interpretation Abnormal (test code = 49051-7) [facility] GLUCOSE (AUTOMATED)2019-09-05 05:58:00 Test Item Value Reference Range Interpretation Comments POCT GLU (test code = 4087602142) 160 mg/dL 70-110 H Lab Interpretation (test code = Abnormal 31131-1) [facility] GLUCOSE (AUTOMATED)2019-09-05 03:22:00 Test Item Value Reference Range Interpretation Comments POCT GLU (test code = 1094749634) 56 mg/dL 70-110 L Lab Interpretation (test code = Abnormal 88629-7) [facility] GLUCOSE (AUTOMATED)2019-09-05 03:22:00 Test Item Value Reference Range Interpretation Comments POCT GLU (test code = 7239622705) 103 mg/dL 70-110 Lab Interpretation (test code = Normal 79339-1) [facility] GLUCOSE (AUTOMATED)2019-09-05 02:41:00 Test Item Value Reference Range Interpretation Comments POCT GLU (test code = 2487286376) 98 mg/dL 70-110 Lab Interpretation (test code = Normal 70664-8) [facility] GLUCOSE (AUTOMATED)2019-09-04 18:03:00 Test Item Value Reference Range Interpretation Comments POCT GLU (test code = 9310295193) 173 mg/dL 70-110 H Lab Interpretation (test code = Abnormal 05667-2) [facility] [id number] 14:25:52 No acute intrathoracic abnormality. PROCEDURE: XR [...] abnormality. Sternotomy sutures are noted.IMPRESSIONNo acute intrathoracic abnormality.[facility] GLUCOSE (AUTOMATED)2019-09-04 14:18:00 Test Item Value Reference Range Interpretation Comments POCT GLU (test code = 8545647452) 198 mg/dL 70-110 H Lab Interpretation (test code = Abnormal 81436-1) [facility] [id number] 13:12:00 Test Item Value Reference Range Interpretation Comments IONIZED CA (test code = 4.60 mg/dL 4.5-5.3 0034368456) PH SERUM (test code = 6108756958) 7.35-7.45 H Lab Interpretation (test code = Abnormal 96640-5) [facility] [id number] 11:39:00 Test Item Value Reference Range Interpretation [...] (test code = 56.0 fL 38.5-51.6 H 87882-0) RDW-CV (test code = 21.9 % 12.1-15.4 H 788-0) PLT (test code = See_Comment [Automated 777-3) message] The system which generated this result transmit tennille reference range : 150 - 328 10*3/ ?L. The reference range was not u sed to interpret th is result as normal/abnormal . MPV (test code = 11.4 fL 9.8-13 17275-1) NRBC/100 WBC (test See_Comment [Automat ed code = 7910098094) message] The system which generated this result transmit tennille reference range : 0.0 - 10.0 /100 WBCs. The reference range was not used to interpret this result as normal/abnormal . NRBC x10^3 (test code <0.01 See_Comment [Auto mated = 4110567277) message] The system which generated this result transmit tennille reference range : 10*3/?L. The reference range was not used to interpret this result as normal/abnormal . SEG % (test code = 88 % 33-76 H 43480-6) BAND % (test code = 3 % 0-1 H 95512-3) LYMPH % (test code = 6 % 14-54 L 22166-6) MONO % (test code = 3 % 0-4 18542-4) ANC (test code = 12.63 10*3/uL 1.99-6.95 H 2978495867) YVES CELLS (test code 2+ See_Comment A [Auto mated = 7790-9) message] The system which generated this result transmit tennille reference range : (none). The reference range was not used to interpret this result as normal/abnormal . ELLIPTO/OVAL (test 2+ See_Comment A [Automat ed code = 67751-8) message] The system which generated this result transmit tennille reference range : (none). The reference range was not used to interpret this result as normal/abnormal . SCHISTOCYTES (test 1+ A code = 800-3) TOXIC CHANGES (test Present A code = 803-7) PLT ESTIMATE (test Normal Normal code = 9317-9) Lab Interpretation Abnormal (test code = 99878-4) [facility] METABOLIC PANEL (NA, K, CL, CO2, GLUCOSE, BUN, CREATININE, CA)2019-09-04 11:26:00 Test Item Value Reference Range Interpretation Comments NA (test code = 136 mmol/L 135-145 1602028676) K (test code = 3.4 mmol/L 3.5-5 L 0074201250) CL (test code = 103 mmol/L 98-108 7167887500) CO2 TOTAL (test code = 26 mmol/L 23-31 0544887293) AGAP (test code = 2-16 8644005347) BUN (test code = 42 mg/dL 7-23 H 9629589917) GLUCOSE (test code = 184 mg/dL 70-110 H 1395168544) CREATININE (test code = 1.14 mg/dL 0.6-1.25 1765952099) CALCIUM (test code = 8.0 mg/dL 8.6-10.6 L 8765644532) eGFR Calculation mL/min/1.73m2 (Non-) (test code = 5230879930) eGFR Calculation mL/min/1.73m2 () (test code = 1434943154) JUAN LUIS (test code = JUAN LUIS) [...] tests). Lab Interpretation Abnormal (test code = 89478-7) [facility] 11:26:00 Test Item Value Reference Range Interpretation Comments MAGNESIUM (test code = 6408709624) 2.0 mg/dL 1.7-2.4 Lab Interpretation (test code = Normal 11776-5) [facility] GLUCOSE (AUTOMATED)2019-09-04 11:05:00 Test Item Value Reference Range Interpretation Comments POCT GLU (test code = 4872835797) 202 mg/dL 70-110 H Lab Interpretation (test code = Abnormal 20660-8) [facility] GLUCOSE (AUTOMATED)2019-09-04 09:12:00 Test Item Value Reference Range Interpretation Comments POCT GLU (test code = 4197548970) 190 mg/dL 70-110 H Lab Interpretation (test code = Abnormal 06734-8) [facility] GLUCOSE (AUTOMATED)2019-09-04 05:59:00 Test Item Value Reference Range Interpretation Comments POCT GLU (test code = 3076221914) 144 mg/dL 70-110 H Lab Interpretation (test code = Abnormal 72404-4) [facility] GLUCOSE (AUTOMATED)2019-09-04 03:37:00 Test Item Value Reference Range Interpretation Comments POCT GLU (test code = 0047208433) 138 mg/dL 70-110 H Lab Interpretation (test code = Abnormal 16262-1) [facility] GLUCOSE (AUTOMATED)2019-09-04 02:36:00 Test Item Value Reference Range Interpretation Comments POCT GLU (test code = 54 mg/dL 70-110 L Notifi ed Provider [id number]) Lab Interpretation (test Abnormal code = 13481-4) [facility] GLUCOSE (AUTOMATED)2019-09-04 02:35:00 Test Item Value Reference Range Interpretation Comments POCT GLU (test code = 8493440233) 137 mg/dL 70-110 H Lab Interpretation (test code = Abnormal 64754-6) [facility] GLUCOSE (AUTOMATED)2019-09-03 23:29:00 Test Item Value Reference Range Interpretation Comments POCT GLU (test code = 4223577015) 68 mg/dL 70-110 L Lab Interpretation (test code = Abnormal 71046-8) [facility] GLUCOSE (AUTOMATED)2019-09-03 23:06:00 Test Item Value Reference Range Interpretation Comments POCT GLU (test code = 3866329811) 69 mg/dL 70-110 L Lab Interpretation (test code = Abnormal 82068-7) [facility] [id number] 22:57:22 Mild residual atelectasis. No definite pneumothorax. [...] venous catheter sheath terminates in the mid SVC.[facility] GLUCOSE (AUTOMATED)2019-09-03 17:30:00 Test Item Value Reference Range Interpretation Comments POCT GLU (test code = 0988941503) 108 mg/dL 70-110 Lab Interpretation (test code = Normal 30363-2) [facility] [id number] 15:06:00EXAM: XR CHEST 1 VW HISTORY: s/p cabg COMPARISON: None. FINDINGS: Chest tubes drain the pleural space on each side, and a mediastinal drainis in the expected position. The [place] catheter was removed. The tip ofthe right [...] a mediastinal drainis in theexpected position. The [place] catheter was removed. The tip ofthe right IJ line is in the superior vena cava The heart is upper limit ofnormal in size or slightly enlarged to the left, probably thelatter. Thelungs are moderately well expanded and clear except for very minor hilarvascular congestion. No pleural effusion or pneumothorax is detected.[facility] 14:42:00 Test Item Value Reference Range Interpretation Comments POCT GLU (test code = 136 mg/dL 70-110 H Notifi ed Provider [id number]) Lab Interpretation (test Abnormal code = 57982-6) [facility] WITH [id number] 10:31:00 Test Item Value Reference Range Interpretation [...] (test code = 53.7 fL 38.5-51.6 H 98857-3) RDW-CV (test code = 21.4 % 12.1-15.4 H 788-0) PLT (test code = See_Comment [Automated 777-3) message] The system which generated this result transmit tennille reference range : 150 - 328 10*3/ ?L. The reference range was not u sed to interpret th is result as normal/abnormal . MPV (test code = 11.5 fL 9.8-13 71892-8) NRBC/100 WBC (test See_Comment [Automat ed code = 0520353850) message] The system which generated this result transmit tennille reference range : 0.0 - 10.0 /100 WBCs. The reference range was not used to interpret this result as normal/abnormal . NRBC x10^3 (test code <0.01 See_Comment [Auto mated = 8669588051) message] The system which generated this result transmit tennille reference range : 10*3/?L. The reference range was not used to interpret this result as normal/abnormal . GRAN MAT (NEUT) % 84.6 % (test code = 770-8) IMM GRAN % (test code 0.60 % = 9757836470) LYMPH % (test code = 4.2 % 736-9) MONO % (test code = 10.5 % 5905-5) EOS % (test code = 0.0 % 713-8) BASO % (test code = 0.1 % 706-2) GRAN MAT x10^3(ANC) 14.72 10*3/uL 1.99-6.95 H (test code = 2239945622) IMM GRAN x10^3 (test 0.11 10*3/uL 0-0.06 H code = 8742344731) LYMPH x10^3 (test code 0.74 10*3/uL 1.09-3.23 L = 731-0) MONO x10^3 (test code 1.83 10*3/uL 0.36-1.02 H = 742-7) EOS x10^3 (test code = <0.03 0.06-0.53 L 711-2) BASO x10^3 (test code <0.03 0.01-0.09 = 704-7) BASO STIPPLING (test Present A code = 703-9) SCHISTOCYTES (test 1+ A code = 800-3) Lab Interpretation Abnormal (test code = 81234-6) [facility] METABOLIC PANEL (NA, K, CL, CO2, GLUCOSE, BUN, CREATININE, CA)2019-09-03 10:19:00 Test Item Value Reference Range Interpretation Comments NA (test code = 137 mmol/L 135-145 6123266047) K (test code = 4.0 mmol/L 3.5-5 1537456007) CL (test code = 104 mmol/L 98-108 7682549107) CO2 TOTAL (test code = 24 mmol/L 23-31 8709050834) AGAP (test code = 2-16 5429104406) BUN (test code = 51 mg/dL 7-23 H 1095064273) GLUCOSE (test code = 204 mg/dL 70-110 H 6297746398) CREATININE (test code = 1.72 mg/dL 0.6-1.25 H 2764576209) CALCIUM (test code = 8.6 mg/dL 8.6-10.6 5561014283) eGFR Calculation mL/min/1.73m2 (Non-) (test code = 8388225384) eGFR Calculation mL/min/1.73m2 () (test code = 4819226591) JUAN LUIS (test code = JUAN LUIS) [...] tests). Lab Interpretation Abnormal (test code = 99747-8) [facility] Test Item Value Reference Range Interpretation Comments MAGNESIUM (test code = 7510049962) 2.5 mg/dL 1.7-2.4 H Lab Interpretation (test code = Abnormal 10106-4) [facility] GLUCOSE (AUTOMATED)2019-09-03 09:37:00 Test Item Value Reference Range Interpretation Comments POCT GLU (test code = 283 mg/dL 70-110 H Notifi ed Provider [id number]) Lab Interpretation (test Abnormal code = 09349-0) [facility] GLUCOSE (AUTOMATED)2019-09-03 09:12:00 Test Item Value Reference Range Interpretation Comments POCT GLU (test code = 0299382460) 240 mg/dL 70-110 H Lab Interpretation (test code = Abnormal 69876-2) [facility] GLUCOSE (AUTOMATED)2019-09-03 06:11:00 Test Item Value Reference Range Interpretation Comments POCT GLU (test code = 8978486332) 309 mg/dL 70-110 H Lab Interpretation (test code = Abnormal 05483-9) [facility] GLUCOSE (AUTOMATED)2019-09-02 22:21:00 Test Item Value Reference Range Interpretation Comments POCT GLU (test code = 5284241496) 281 mg/dL 70-110 H Lab Interpretation (test code = Abnormal 10525-1) [facility] GLUCOSE (AUTOMATED)2019-09-02 18:57:00 Test Item Value Reference Range Interpretation Comments POCT GLU (test code = 8165318867) 244 mg/dL 70-110 H Lab Interpretation (test code = Abnormal 21173-5) [facility] Screen by Britney [id number] 17:19:00 Test Item Value Reference Range Interpretation Comments MSSA Screen by Britney MTZ (test code Negative Negative = 39647-5) MRSA/MSSA Positive? (test code = No No 8336868474) Lab Interpretation (test code = Normal 05312-3) [facility] 1 [id number] 15:38:43EXAM: XR CHEST 1 VW HISTORY: s/p open heart surgery COMPARISON: None. FINDINGS: The heart is slightly enlarged, not different than noted previously. Thetip of the [place] catheter is in the main pulmonary artery. A chest tubedrains the pleural space on the right and a mediastinal drain is in place.The endotracheal tube was removed. The chest tube on the left was removed.The lungs are moderately well expanded and clear.[facility], Radiant Results Inft 09/02/2019 9:39 AM CSTEXAM: XR CHEST 1 VWHISTORY: s/p open heart surgery COMPARISON: None.FINDINGS:The heart is slightly enlarged, not different than noted previously. Thetip of the [place] catheter is in the main pulmonary artery. A chest tubedrains the pleural space on the right and a mediastinal drain is in place.The endotracheal tube was removed. The chest tube on the left was removed.The lungs are moderately well expanded and clear.[facility] GLUCOSE (AUTOMATED)2019-09-02 13:46:00 Test Item Value Reference Range Interpretation Comments POCT GLU (test code = 6878629916) 157 mg/dL 70-110 H Lab Interpretation (test code = Abnormal 86366-2) [facility] GLUCOSE (AUTOMATED)2019-09-02 10:17:00 Test Item Value Reference Range Interpretation Comments POCT GLU (test code = 3274213721) 149 mg/dL 70-110 H Lab Interpretation (test code = Abnormal 92315-8) [facility] GLUCOSE (AUTOMATED)2019-09-02 10:17:00 Test Item Value Reference Range Interpretation Comments POCT GLU (test code = 7663260441) 109 mg/dL 70-110 Lab Interpretation (test code = Normal 90350-9) [facility] 07:38:00 Test Item Value Reference Range Interpretation Comments MAGNESIUM (test code = 4922338542) 2.6 mg/dL 1.7-2.4 H Lab Interpretation (test code = Abnormal 37639-7) [facility] (NA, K, CL, CO2, GLUCOSE, BUN, CREATININE, CA)2019-09-02 07:38:00 Test Item Value Reference Range Interpretation Comments NA (test code = 137 mmol/L 135-145 2224513289) K (test code = 4.6 mmol/L 3.5-5 0227757063) CL (test code = 108 mmol/L 98-108 8906623495) CO2 TOTAL (test code = 23 mmol/L 23-31 6027705093) AGAP (test code = 2-16 5460012405) BUN (test code = 40 mg/dL 7-23 H 0975285704) GLUCOSE (test code = 120 mg/dL 70-110 H 9909656002) CREATININE (test code = 1.72 mg/dL 0.6-1.25 H 6914583517) CALCIUM (test code = 8.1 mg/dL 8.6-10.6 L 7937272385) eGFR Calculation mL/min/1.73m2 (Non-) (test code = 8487817585) eGFR Calculation mL/min/1.73m2 () (test code = 3700711760) JUAN LUIS (test code = JUAN LUIS) [...] tests). Lab Interpretation Abnormal (test code = 33203-9) [facility] 07:38:00 Test Item Value Reference Range Interpretation Comments PHOSPHORUS (test code = 7569114783) 4.5 mg/dL 2.5-5 Lab Interpretation (test code = Normal 69134-4) [facility] (90504[facility] (ALB,T.PRO,BILI T,BU/BC,ALT,AST,ALK PHOS)2019-09-02 07:38:00 Test Item Value Reference Range Interpretation Comments TOTAL BILI (test code = 1877972401) 0.2 mg/dL 0.1-1.1 BILI UNCON (test code = 4916116963) 0.2 mg/dL 0.1-1.1 BILI CONJ (test code = 2064998447) 0.0 mg/dL 0-0.3 T PROTEIN (test code = 6067962833) 4.7 g/dL 6.3-8.2 L ALBUMIN (test code = 3680321075) 2.4 g/dL 3.5-5 L ALK PHOS (test code = 1103759454) 34 U/L 34-122 ALTv (test code = 1742-6) 15 U/L 5-50 AST(SGOT) (test code = 2260501307) 43 U/L 13-40 H Lab Interpretation (test code = Abnormal 49211-5) [facility]OO[facility]+NA+K+GLU+CA2+2019-09-02 07:30:00 Test Item Value Reference Range Interpretation Comments PH (test code = 2) 7.35-7.45 PCO2 (test code = See_Comment [Automat ed message] 2922990658) The system [employer] generated this result transmit tennille reference range : 35 - 45 mmHg. The reference range was not used to interpret this result as normal/abnormal . PO2 (test code = See_Comment H [Automated message] 0837073641) The system [employer] generated this result transmit tennille reference range : 80 - 100 mmHg. The reference range was not used to interpret this result as normal/abnormal . HCO3 (test code = See_Comment L [Automate d message] 3084137261) The system [employer] generated this result transmit tennille reference range : 22 - 26 mEq/L. The reference range was not used to interpret this result as normal/abnormal . BE (test code = See_Comment L [Automated message] 8409955075) The system [employer] generated this result transmit tennille reference range : -3.0 - 3.0 mEq/ L. The reference r christine was not used to interpret this result as normal/abnormal . THB (test code = 9.6 g/dL 13.5-18 L 8541406029) %O2HB (test code = 97.8 % 94-99 8146667447) %COHB ART (test code = 0.3 % 0-1.5 8912184021) %METHB ART (test code = 0.3 % 0.4-1.5 L 1327085610) VOL%O2 ART (test code = 13.5 % 15-23 L 9217585769) NA (test code = 135 mmol/L 135-145 8111470126) K+ (test code = 4.4 mmol/L 3.5-5 0398287918) AC CA IONZ (test code = 5.00 mg/dL 4.5-5.3 5044866573) GLUCOSE (test code = 117 mg/dL 70-110 H 7714813890) Lab Interpretation Abnormal (test code = 95554-9) [facility] [id number] 07:28:00 Test Item Value Reference Range Interpretation Comments WBC (test code = 6690-2) See_Comment H [A utomated message] The system [facility] generated this result transmit tennille reference range : 4.20 - 10.70 10*3/?L. The reference range was not used to interpret this result as normal/abnormal . RBC (test code = 789-8) See_Comment L [Au tomated message] The system [facility] generated this result transmit tennille reference [...] 777-3) See_Comment [Au tomated message] The system [facility] generated this result transmit tennille reference range : 150 - 328 10*3/?L. The reference range was not used to interpret this result as normal/abnormal . MPV (test code = 11.1 fL 9.8-13 67704-8) RDW-CV (test code = 19.5 % 12.1-15.4 H 788-0) RDW-SD (test code = 50.0 fL 38.5-51.6 66992-8) NRBC x10^3 (test code = <0.01 See_Comment [Au tomated message] 5956015891) The system [facility] generated this result transmit tennille reference range : 10*3/?L. The reference range was not used to interpret this result as normal/abnormal . NRBC/100 WBC (test code See_Comment [Au tomated message] = 1668160580) The system [facility] generated this result transmit tennille reference range : 0.0 - 10.0 /100 WBC s. The reference r christine was not used to interpret this result as normal/abnormal . IPF % (test code = 1217283049) Lab Interpretation (test Abnormal code = 84426-4) [facility] GLUCOSE (AUTOMATED)2019-09-02 06:07:00 Test Item Value Reference Range Interpretation Comments POCT GLU (test code = 5804450136) 183 mg/dL 70-110 H Lab Interpretation (test code = Abnormal 20762-7) [facility] + LACTIC [id number] 03:06:00 Test Item Value Reference Range Interpretation Comments PH (test code = 2) 7.35-7.45 PCO2 (test code = See_Comment L [Automat ed 9542984258) message] The sy stem which generated this result transmitted reference range : 35 - 45 mmHg. The reference range was not used to interpret this result as normal/abnormal . PO2 (test code = See_Comment H [Automated 9867555105) message] The sy stem which generated this result transmitted reference range : 80 - 100 mmHg. The reference range was not used to interpret this result as normal/abnormal . HCO3 (test code = See_Comment L [Automate d 0016169801) message] The sy stem which generated this result transmitted reference range : 22 - 26 mEq/L. The reference range was not used to interpret this result as normal/abnormal . BE (test code = See_Comment L [Automated 7667645988) message] The sy stem which generated this result transmitted reference range : -3.0 - 3.0 mEq/ L. The reference r christine was not used to interpret this result as normal/abnormal . THB (test code = 10.2 g/dL 13.5-18 L 1167490392) %O2HB (test code = 98.1 % 94-99 6411087567) %COHB ART (test code = 0.3 % 0-1.5 5789309286) %METHB ART (test code = 0.3 % 0.4-1.5 L 7513154484) VOL%O2 ART (test code = 14.4 % 15-23 L 0200411679) NA (test code = 134 mmol/L 135-145 L 5211915573) K+ (test code = 4.9 mmol/L 3.5-5 5938165388) AC CA IONZ (test code = 4.90 mg/dL 4.5-5.3 8773997686) GLUCOSE (test code = 176 mg/dL 70-110 H 6443027257) LACTIC ACID (test code 1.62 mmol/L 0.5-2.2 = 3730041630) Lab Interpretation Abnormal (test code = 62961-2) [facility] GLUCOSE (AUTOMATED)2019-09-02 01:41:00 Test Item Value Reference Range Interpretation Comments POCT GLU (test code = 5995296610) 176 mg/dL 70-110 H Lab Interpretation (test code = Abnormal 92487-4) [facility] GLUCOSE (AUTOMATED)2019-09-01 23:56:00 Test Item Value Reference Range Interpretation Comments POCT GLU (test code = 7554622460) 172 mg/dL 70-110 H Lab Interpretation (test code = Abnormal 17255-5) [facility] METABOLIC PANEL (NA, K, CL, CO2, GLUCOSE, BUN, CREATININE, CA)2019-09-01 23:52:00 Test Item Value Reference Range Interpretation Comments NA (test code = 136 mmol/L 135-145 0629611568) K (test code = 5.1 mmol/L 3.5-5 H 2327269341) CL (test code = 106 mmol/L 98-108 5698063177) CO2 TOTAL (test code = 23 mmol/L 23-31 4186462308) AGAP (test code = 2-16 9224272698) BUN (test code = 34 mg/dL 7-23 H 7830927589) GLUCOSE (test code = 147 mg/dL 70-110 H 0164002871) CREATININE (test code = 1.75 mg/dL 0.6-1.25 H 8058653879) CALCIUM (test code = 8.4 mg/dL 8.6-10.6 L 3424314566) eGFR Calculation mL/min/1.73m2 (Non-) (test code = 2420714409) eGFR Calculation mL/min/1.73m2 () (test code = 4812588616) JUAN LUIS (test code = JUAN LUIS) [...] tests). Lab Interpretation Abnormal (test code = 65892-4) [facility] Test Item Value Reference Range Interpretation Comments MAGNESIUM (test code = 0462117175) 2.3 mg/dL 1.7-2.4 Lab Interpretation (test code = Normal 32102-6) [facility] 23:49:00 Test Item Value Reference Range Interpretation Comments PHOSPHORUS (test code = 2260843323) 4.0 mg/dL 2.5-5 Lab Interpretation (test code = Normal 45909-9) [facility]2019-09-01 23:48:00 Test Item Value Reference Range Interpretation Comments POCT GLU (test code = 9102988049) 131 mg/dL 70-110 H Lab Interpretation (test code = Abnormal 52107-6) [facility] 23:[facility] Test Item Value Reference Range Interpretation Comments APTT Patient (test code = See_Comment [ Automated message] 3173-2) The system [employer] generated this result transmitted ref erence range: 26 - 36 Seconds. The re ference range was not u sed to interpret this result as normal/abnor mal. Lab Interpretation (test Normal code = 16955-3) [facility]+NA+K+GLU+CA2+2019-09-01 23:34:00 Test Item Value Reference Range Interpretation Comments PH (test code = 2) 7.35-7.45 PCO2 (test code = See_Comment [Automat ed message] 5443722471) The system [employer] h generated this result transmit tennille reference range : 35 - 45 mmHg. The reference range was not used to interpret this result as normal/abnormal . PO2 (test code = See_Comment H [Automated message] 4451029263) The system [employer] h generated this result transmit tennille reference range : 80 - 100 mmHg. The reference range was not used to interpret this result as normal/abnormal . HCO3 (test code = See_Comment L [Automate d message] 0188902044) The system [employer] generated this result transmit tennille reference range : 22 - 26 mEq/L. The reference range was not used to interpret this result as normal/abnormal . BE (test code = See_Comment L [Automated message] 5135022083) The system [employer] generated this result transmit tennille reference range : -3.0 - 3.0 mEq/ L. The reference r christine was not used to interpret this result as normal/abnormal . THB (test code = 10.0 g/dL 13.5-18 L 6122003199) %O2HB (test code = 98.0 % 94-99 3787590673) %COHB ART (test code = 0.3 % 0-1.5 3425817619) %METHB ART (test code = 0.2 % 0.4-1.5 L 8766265444) VOL%O2 ART (test code = 14.1 % 15-23 L 1263226338) NA (test code = 134 mmol/L 135-145 L 0702309712) K+ (test code = 5.0 mmol/L 3.5-5 6161995453) AC CA IONZ (test code = 4.90 mg/dL 4.5-5.3 4043973994) GLUCOSE (test code = 151 mg/dL 70-110 H 0404783705) Lab Interpretation Abnormal (test code = 86164-9) [facility] [id number] 21:06:00 Test Item Value Reference Range Interpretation [...] (test code = 51.8 fL 38.5-51.6 H 66691-6) RDW-CV (test code = 20.2 % 12.1-15.4 H 788-0) PLT (test code = See_Comment [Automated 777-3) message] The system which generated this result transmit tennille reference range : 150 - 328 10*3/ ?L. The reference range was not u sed to interpret th is result as normal/abnormal . MPV (test code = 11.7 fL 9.8-13 74432-5) NRBC/100 WBC (test See_Comment [Automat ed code = 6188405340) message] The system which generated this result transmit tennille reference range : 0.0 - 10.0 /100 WBCs. The reference range was not used to interpret this result as normal/abnormal . NRBC x10^3 (test code <0.01 See_Comment [Auto mated = 8041901566) message] The system which generated this result transmit tennille reference range : 10*3/?L. The reference range was not used to interpret this result as normal/abnormal . GRAN MAT (NEUT) % 87.5 % (test code = 770-8) IMM GRAN % (test code 0.80 % = 2792901180) LYMPH % (test code = 4.4 % 736-9) MONO % (test code = 6.6 % 5905-5) EOS % (test code = 0.4 % 713-8) BASO % (test code = 0.3 % 706-2) GRAN MAT x10^3(ANC) 12.12 10*3/uL 1.99-6.95 H (test code = 5664392871) IMM GRAN x10^3 (test 0.11 10*3/uL 0-0.06 H code = 7056237661) LYMPH x10^3 (test code 0.61 10*3/uL 1.09-3.23 L = 731-0) MONO x10^3 (test code 0.92 10*3/uL 0.36-1.02 = 742-7) EOS x10^3 (test code = 0.05 10*3/uL 0.06-0.53 L 711-2) BASO x10^3 (test code 0.04 10*3/uL 0.01-0.09 = 704-7) Lab Interpretation Abnormal (test code = 86134-7) [facility] + LACTIC [id number] 21:06:00 Test Item Value Reference Range Interpretation Comments PH (test code = 2) 7.35-7.45 PCO2 (test code = See_Comment [Automat ed 5406781491) message] The sy stem which generated this result transmitted reference range : 35 - 45 mmHg. The reference range was not used to interpret this result as normal/abnormal . PO2 (test code = See_Comment H [Automated 5952243828) message] The sy stem which generated this result transmitted reference range : 80 - 100 mmHg. The reference range was not used to interpret this result as normal/abnormal . HCO3 (test code = See_Comment [Automate d 2037533420) message] The sy stem which generated this result transmitted reference range : 22 - 26 mEq/L. The reference range was not used to interpret this result as normal/abnormal . BE (test code = See_Comment [Automated 8245172785) message] The sy stem which generated this result transmitted reference range : -3.0 - 3.0 mEq/ L. The reference r christine was not used to interpret this result as normal/abnormal . THB (test code = 9.9 g/dL 13.5-18 L 6248328170) %O2HB (test code = 98.0 % 94-99 7442293727) %COHB ART (test code = 0.3 % 0-1.5 5840285618) %METHB ART (test code = 0.1 % 0.4-1.5 L 7247458662) VOL%O2 ART (test code = 14.0 % 15-23 L 6034460596) NA (test code = 135 mmol/L 135-145 4061291190) K+ (test code = 4.5 mmol/L 3.5-5 7571529562) AC CA IONZ (test code = 4.60 mg/dL 4.5-5.3 4803540791) GLUCOSE (test code = 124 mg/dL 70-110 H 0111541282) LACTIC ACID (test code 0.89 mmol/L 0.5-2.2 = 1011486717) Lab Interpretation Abnormal (test code = 79801-1) [facility] Metabolic Panel (NA, K, CL, CO2, GLUCOSE, BUN, CREATININE, CA)2019-09-01 21:02:00 Test Item Value Reference Range Interpretation Comments NA (test code = 137 mmol/L 135-145 5554109439) K (test code = 4.3 mmol/L 3.5-5 5061596437) CL (test code = 107 mmol/L 98-108 5057378125) CO2 TOTAL (test code = 24 mmol/L 23-31 5008944961) AGAP (test code = 2-16 5705732646) BUN (test code = 31 mg/dL 7-23 H 2090237418) GLUCOSE (test code = 106 mg/dL 70-110 4006595103) CREATININE (test code = 1.68 mg/dL 0.6-1.25 H 9738675103) CALCIUM (test code = 7.0 mg/dL 8.6-10.6 L 3302940954) eGFR Calculation mL/min/1.73m2 (Non-) (test code = 3987796412) eGFR Calculation mL/min/1.73m2 () (test code = 0659082325) JUAN LUIS (test code = JUAN LUIS) [...] tests). Lab Interpretation Abnormal (test code = 25479-5) [facility] 21:02:00 Test Item Value Reference Range Interpretation Comments MAGNESIUM (test code = 2806814063) 1.9 mg/dL 1.7-2.4 Lab Interpretation (test code = Normal 27204-1) [facility] 21:02:00 Test Item Value Reference Range Interpretation Comments PHOSPHORUS (test code = 3039061133) 3.1 mg/dL 2.5-5 Lab Interpretation (test code = Normal 28274-2) [facility] AustinPROTHROMBIN [facility] / [id number] 20:59:00 Test Item Value Reference Range Interpretation Comments PROTIME PATIENT (test See_Comment H [Auto mated message] code = 5964-2) The system [employer] generated this result transmitted ref erence range: 10.1 - 1 2.6 Seconds. The reference range was not used to int erpret this result as normal/abnormal . INR (test code = 6301-6) Nor mal INR <1.1; Warfarin Therap eutic range 2.0 to 3. 0 or 2.5 to 3.5, dep ending upon the indica tions. Lab Interpretation (test Abnormal code = 02332-9) [facility] 20:59:00 Test Item Value Reference Range Interpretation Comments APTT Patient (test code See_Comment H [Au tomated message] = 3173-2) The system [employer] h generated this result transmitted ref erence range: 26 - 36 Seconds. The reference range was not used to int erpret this result as normal/abnormal . Lab Interpretation (test Abnormal code = 18210-1) [facility] Packed RBC (in units), 2 Units 2019-09-01 20:58:25 Test Item Value Reference Range Interpretation Comments Cross Match Result Compatible (test code = 4409) ISBT Blood Type Code (test code = 070926) Unit Blood Type (test A Pos code = 4410) Unit Number (test [id number] code = 4411) Blood Expiration Date & Time (test code = 804115) Status Information Issued (test code = 4412) Product Red Blood Cells Identification (test code = 4413) Product Code (test L0786Y01 Performed at [facility] code = 4414) Laboratory Services - [facility] Blood [address] [place] [id number] Free: [phone] A No. [id number] [facility] 1 View (on admission)2019-09-01 19:53:23 Lines and tubes in expected position Lungs are expanded and clear with mild perihilar congestion. XR CHEST 1 VW HISTORY: s/p open heart surgery COMPARISON: 08/22/2019 FINDINGS: Lines and tubes: The endotracheal tube terminates 4.6 cm from amol.NG tube extends to stomach.Right IJ [place] terminates at proximal right PA.Mediastinal and chest [...] from amol.NG tube extends to stomach.Right IJ [place] terminates at proximal right PA.Mediastinal and chest tubes in place.Lungs and pleura: Unremarkable with mild perihilar congestion. No pleuraleffusion or pneumothorax.Mediastinum and heart: UnremarkableBones; unre markable status post medial sternotomy.IMPRESSIONLines and tubes in expected positionLungs are expanded and clear with mild perihilar congestion.[facility]+COOX+NA+K+GLU+CA2+2019-09-01 19:30:00 Test Item Value Reference Range Interpretation Comments PH (test code = 2) 7.35-7.45 PCO2 (test code = See_Comment [Automat ed message] 6758086860) The system [employer] generated this result transmit tennille reference range : 35 - 45 mmHg. The reference range was not used to interpret this result as normal/abnormal . PO2 (test code = See_Comment H [Automated message] 0993343395) The system [employer] generated this result transmit tennille reference range : 80 - 100 mmHg. The reference range was not used to interpret this result as normal/abnormal . HCO3 (test code = See_Comment [Automate d message] 9846108259) The system [employer] generated this result transmit tennille reference range : 22 - 26 mEq/L. The reference range was not used to interpret this result as normal/abnormal . BE (test code = See_Comment [Automated message] 7723304251) The system [employer] generated this result transmit tennille reference range : -3.0 - 3.0 mEq/ L. The reference r christine was not used to interpret this result as normal/abnormal . THB (test code = 9.9 g/dL 13.5-18 L 0139132474) %O2HB (test code = 98.8 % 94-99 4497321395) %COHB ART (test code = 0.0 % 0-1.5 3690619065) %METHB ART (test code = 0.3 % 0.4-1.5 L 0574778021) VOL%O2 ART (test code = 14.4 % 15-23 L 3139624663) NA (test code = 135 mmol/L 135-145 3146162548) K+ (test code = 4.3 mmol/L 3.5-5 5962539485) AC CA IONZ (test code = 4.40 mg/dL 4.5-5.3 L 0934528147) GLUCOSE (test code = 106 mg/dL 70-110 4807848452) Lab Interpretation Abnormal (test code = 34631-4) [facility] ACUTE CARE [id number] 18:13:00 Test Item Value Reference Range Interpretation Comments PH (test code = 2) 7.35-7.45 PCO2 (test code = See_Comment H [Automat ed message] 0541363880) The system [employer] generated this result transmit tennille reference range : 35 - 45 mmHg. The reference range was not used to interpret this result as normal/abnormal . PO2 (test code = See_Comment H [Automated message] 4114689745) The system [employer] generated this result transmit tennille reference range : 80 - 100 mmHg. The reference range was not used to interpret this result as normal/abnormal . BE (test code = See_Comment [Automated message] 7214724363) The system [employer] generated this result transmit tennille reference range : -3.0 - 3.0 mEq/ L. The reference r christine was not used to interpret this result as normal/abnormal . HCO3 (test code = See_Comment H [Automate d message] 8724571898) The system [employer] generated this result transmit tennille reference range : 22 - 26 mEq/L. The reference range was not used to interpret this result as normal/abnormal . %O2HB (test code = 100.0 % 95-98 H 9673028071) NA (test code = 137 mmol/L 135-145 6370807557) K+ (test code = 4.3 mmol/L 3.5-5 6400861108) AC CA IONZ (test code = 4.40 mg/dL 4.5-5.3 L 1562823575) GLUCOSE (test code = 80 mg/dL 70-110 2375579772) AC Hematocrit (test See_Comment LL [Automa tennille message] code = 7853684754) The syste m which generated this result transmit tennille reference range : 40 - 54 VOL %. The reference range was not used to interpret this result as normal/abnormal . THB (test code = 8.2 g/dL 13.5-18 LL 1080518989) AC TC02 (test code = 28 mmol/L See_Comment H [Autom ated message] 2143329553) The system [employer] h generated this result transmit tennille reference range : 23-27 mmol/L. T he reference range was not used to interpret this result as normal/abnormal . Lab Interpretation Abnormal (test code = 35440-5) [facility] HIGH [id number] 17:58:00 Test Item Value Reference Range Interpretation Comments ACTHR (test code = See_Comment [Automat ed message] 7240202341) The system [employer] generated this result transmitted ref erence range: 96 - 152 Seconds. The re ference range was not u sed to interpret this result as normal/abnor mal. Lab Interpretation (test Normal code = 81708-4) [facility]2020-[facility] 17:39:00 Test Item Value Reference Range Interpretation Comments APTT Patient (test code >150 See_Comment HH [Au tomated message] = 3173-2) The system [employer] generated this result transmitted ref erence range: 26 - 36 Seconds. The reference range was not used to int erpret this result as normal/abnormal . Lab Interpretation (test Abnormal code = 32520-9) [facility]IB[facility]INOGEN2020-02-18 17:32:00 Test Item Value Reference Range Interpretation Comments Fibrinogen (test code = 2796103808) 350 mg/dL 167-453 Lab Interpretation (test code = Normal 96455-6) [facility] AustinPROTHROMBIN TIME / [id number] 17:32:00 Test Item Value Reference Range Interpretation Comments PROTIME PATIENT (test See_Comment H [Auto mated message] code = 5964-2) The system [employer] generated this result transmitted ref erence range: 10.1 - 1 2.6 Seconds. The reference range was not used to int erpret this result as normal/abnormal . INR (test code = 6301-6) Nor mal INR <1.1; Warfarin Therap eutic range 2.0 to 3. 0 or 2.5 to 3.5, dep ending upon the indica tions. Lab Interpretation (test Abnormal code = 31289-9) [facility] ACUTE CARE [id number] 17:17:00 Test Item Value Reference Range Interpretation Comments PH (test code = 2) 7.35-7.45 L PCO2 (test code = See_Comment H [Automat ed message] 1298253586) The system ic h generated this result transmit tennille reference range : 35 - 45 mmHg. The reference range was not used to interpret this result as normal/abnormal . PO2 (test code = See_Comment H [Automated message] 9439173189) The system ic h generated this result transmit tennille reference range : 80 - 100 mmHg. The reference range was not used to interpret this result as normal/abnormal . BE (test code = See_Comment [Automated message] 2960551462) The system ic [email or web address] generated this result transmit tennille reference range : -3.0 - 3.0 mEq/ L. The reference r christine was not used to interpret this result as normal/abnormal . HCO3 (test code = See_Comment H [Automate d message] 3999873461) The system [employer]ic [email or web address] generated this result transmit tennille reference range : 22 - 26 mEq/L. The reference range was not used to interpret this result as normal/abnormal . %O2HB (test code = 100.0 % 95-98 H 1370899614) NA (test code = 140 mmol/L 135-145 1842194590) K+ (test code = 4.2 mmol/L 3.5-5 6815904357) AC CA IONZ (test code = 4.20 mg/dL 4.5-5.3 L 7926168725) GLUCOSE (test code = 92 mg/dL 70-110 7913367341) AC Hematocrit (test See_Comment LL [Automa tennille message] code = 6063144496) The syste m which generated this result transmit tennille reference range : 40 - 54 VOL %. The reference range was not used to interpret this result as normal/abnormal . THB (test code = 7.5 g/dL 13.5-18 LL 6176713629) AC TC02 (test code = 29 mmol/L See_Comment H [Autom ated message] 3172582941) The system [employer] generated this result transmit tennille reference range : 23-27 mmol/L. T he reference range was not used to interpret this result as normal/abnormal . Lab Interpretation Abnormal (test code = 79083-3) [facility]IT2020-[facility] 17:16:00 Test Item Value Reference Range Interpretation Comments HCT (test code = 4544-3) 25.6 % 38.4-49.3 L Lab Interpretation (test code = Abnormal 00467-9) [facility]MOGLOBIN2020-02-18 17:16:00 Test Item Value Reference Range Interpretation Comments HGB (test code = 718-7) 8.0 g/dL 12.2-16.4 L Lab Interpretation (test code = Abnormal 70564-4) [facility] AustinPLATELET [id number] 17:16:00 Test Item Value Reference Range Interpretation Comments PLT (test code = 777-3) See_Comment [Au tomated message] The system [employer] generated this result transmitted ref erence range: 150 - 32 8 10*3/?L. The re ference range was not u sed to interpret this result as normal/abnor mal. Lab Interpretation (test Normal code = 33326-9) [facility]PO[facility] ACT HIGH [id number] 17:04:00 Test Item Value Reference Range Interpretation Comments ACTHR (test code = See_Comment H [Automat ed message] 4105178617) The system [employer] generated this result transmitted ref erence range: 96 - 152 Seconds. The reference range was not used to int erpret this result as normal/abnormal . Lab Interpretation (test Abnormal code = 15022-2) [facility] [id number] 16:52:00 Test Item Value Reference Range Interpretation Comments PH (test code = 2) 7.35-7.45 PCO2 (test code = See_Comment [Automat ed message] 8970955052) The system [employer] generated this result transmit tennille reference range : 35 - 45 mmHg. The reference range was not used to interpret this result as normal/abnormal . PO2 (test code = See_Comment H [Automated message] 2981317140) The system [employer] generated this result transmit tennille reference range : 80 - 100 mmHg. The reference range was not used to interpret this result as normal/abnormal . BE (test code = See_Comment [Automated message] 6085223024) The system [employer] generated this result transmit tennille reference range : -3.0 - 3.0 mEq/ L. The reference r christine was not used to interpret this result as normal/abnormal . HCO3 (test code = See_Comment H [Automate d message] 2292170088) The system [employer] generated this result transmit tennille reference range : 22 - 26 mEq/L. The reference range was not used to interpret this result as normal/abnormal . %O2HB (test code = 100.0 % 95-98 H 0174869741) NA (test code = 138 mmol/L 135-145 1334529185) K+ (test code = 4.7 mmol/L 3.5-5 7159018896) AC CA IONZ (test code = 4.10 mg/dL 4.5-5.3 L 4888081457) GLUCOSE (test code = 143 mg/dL 70-110 H 2170202215) AC Hematocrit (test See_Comment LL [Automa tennille message] code = 9047413587) The syste m which generated this result transmit tennille reference range : 40 - 54 VOL %. The reference range was not used to interpret this result as normal/abnormal . THB (test code = 8.2 g/dL 13.5-18 LL 6590582057) AC TC02 (test code = 29 mmol/L See_Comment H [Autom ated message] 5692130211) The system [employer] generated this result transmit tennille reference range : 23-27 mmol/L. T he reference range was not used to interpret this result as normal/abnormal . Lab Interpretation Abnormal (test code = 74286-9) [facility] [id number] 16:41:00 Test Item Value Reference Range Interpretation Comments ACTHR (test code = See_Comment H [Automat ed message] 8314535950) The system [employer] generated this result transmitted ref erence range: 96 - 152 Seconds. The reference range was not used to int erpret this result as normal/abnormal . Lab Interpretation (test Abnormal code = 64590-6) [facility] ACUTE CARE [id number] 16:20:00 Test Item Value Reference Range Interpretation Comments PH (test code = 2) 7.35-7.45 PCO2 (test code = See_Comment [Automat ed message] 4072979815) The system [email or web address] generated this result transmit tennille reference range : 35 - 45 mmHg. The reference range was not used to interpret this result as normal/abnormal . PO2 (test code = See_Comment H [Automated message] 5597117201) The system [employer] generated this result transmit tennille reference range : 80 - 100 mmHg. The reference range was not used to interpret this result as normal/abnormal . BE (test code = See_Comment [Automated message] 6461485973) The system [employer] generated this result transmit tennille reference range : -3.0 - 3.0 mEq/ L. The reference r christine was not used to interpret this result as normal/abnormal . HCO3 (test code = See_Comment H [Automate d message] 5173847244) The system [employer] generated this result transmit tennille reference range : 22 - 26 mEq/L. The reference range was not used to interpret this result as normal/abnormal . %O2HB (test code = 100.0 % 95-98 H 2599682607) NA (test code = 135 mmol/L 135-145 2181867294) K+ (test code = 4.9 mmol/L 3.5-5 2615816442) AC CA IONZ (test code = 3.80 mg/dL 4.5-5.3 L 6660653288) GLUCOSE (test code = 200 mg/dL 70-110 H 8552405049) AC Hematocrit (test See_Comment L [Automa tennille message] code = 9611786762) The syste m which generated this result transmit tennille reference range : 40 - 54 VOL %. The reference range was not used to interpret this result as normal/abnormal . THB (test code = 8.8 g/dL 13.5-18 L 2246370729) AC TC02 (test code = 29 mmol/L See_Comment H [Autom ated message] 7448204376) The system [employer] generated this result transmit tennille reference range : 23-27 mmol/L. T he reference range was not used to interpret this result as normal/abnormal . Lab Interpretation Abnormal (test code = 66350-4) [facility] ACT HIGH [id number] 16:14:00 Test Item Value Reference Range Interpretation Comments ACTHR (test code = See_Comment H [Automat ed message] 7147019262) The system [employer] generated this result transmitted ref erence range: 96 - 152 Seconds. The reference range was not used to int erpret this result as normal/abnormal . Lab Interpretation (test Abnormal code = 45845-8) [facility] ACUTE CARE [id number] 15:55:00 Test Item Value Reference Range Interpretation Comments PH (test code = 2) 7.35-7.45 L PCO2 (test code = See_Comment H [Automat ed message] [id number]) The system [employer] generated this result transmit tennille reference range : 35 - 45 mmHg. The reference range was not used to interpret this result as normal/abnormal . PO2 (test code = See_Comment H [Automated message] 6442955362) The system [employer] generated this result transmit tennille reference range : 80 - 100 mmHg. The reference range was not used to interpret this result as normal/abnormal . BE (test code = See_Comment [Automated message] 6910093389) The system [employer] generated this result transmit tennille reference range : -3.0 - 3.0 mEq/ L. The reference r christine was not used to interpret this result as normal/abnormal . HCO3 (test code = See_Comment H [Automate d message] 0478147622) The system [employer] generated this result transmit tennille reference range : 22 - 26 mEq/L. The reference range was not used to interpret this result as normal/abnormal . %O2HB (test code = 100.0 % 95-98 H 5786647997) NA (test code = 135 mmol/L 135-145 3856832088) K+ (test code = 5.7 mmol/L 3.5-5 H 6805240732) AC CA IONZ (test code = 3.50 mg/dL 4.5-5.3 L 0641553534) GLUCOSE (test code = 171 mg/dL 70-110 H 7437166215) AC Hematocrit (test See_Comment L [Automa tennille message] code = 0432730264) The syste m which generated this result transmit tennille reference range : 40 - 54 VOL %. The reference range was not used to interpret this result as normal/abnormal . THB (test code = 8.8 g/dL 13.5-18 L 6370905341) AC TC02 (test code = 30 mmol/L See_Comment H [Autom ated message] 6611198634) The system [employer] generated this result transmit tennille reference range : 23-27 mmol/L. T he reference range was not used to interpret this result as normal/abnormal . Lab Interpretation Abnormal (test code = 27459-8) [facility] ACT HIGH [id number] 15:27:00 Test Item Value Reference Range Interpretation Comments ACTHR (test code = See_Comment H [Automat ed message] 4536414452) The system [employer] generated this result transmitted ref erence range: 96 - 152 Seconds. The reference range was not used to int erpret this result as normal/abnormal . Lab Interpretation (test Abnormal code = 92586-6) [facility] ACUTE CARE [id number] 15:20:00 Test Item Value Reference Range Interpretation Comments PH (test code = 2) 7.35-7.45 PCO2 (test code = See_Comment H [Automat ed message] 7041629910) The system [employer] generated this result transmit tennille reference range : 35 - 45 mmHg. The reference range was not used to interpret this result as normal/abnormal . PO2 (test code = See_Comment H [Automated message] 7915252677) The system [employer] generated this result transmit tennille reference range : 80 - 100 mmHg. The reference range was not used to interpret this result as normal/abnormal . BE (test code = See_Comment H [Automated message] 2806446862) The system [employer] generated this result transmit tennille reference range : -3.0 - 3.0 mEq/ L. The reference r christine was not used to interpret this result as normal/abnormal . HCO3 (test code = See_Comment H [Automate d message] 7921099118) The system [employer] generated this result transmit tennille reference range : 22 - 26 mEq/L. The reference range was not used to interpret this result as normal/abnormal . %O2HB (test code = 100.0 % 95-98 H 0161715963) NA (test code = 135 mmol/L 135-145 1265618244) K+ (test code = 4.5 mmol/L 3.5-5 7628245508) AC CA IONZ (test code = 4.80 mg/dL 4.5-5.3 3928812999) GLUCOSE (test code = 118 mg/dL 70-110 H 6079635606) AC Hematocrit (test See_Comment LL [Automa tennille message] code = 4503715883) The syste m which generated this result transmit tennille reference range : 40 - 54 VOL %. The reference range was not used to interpret this result as normal/abnormal . THB (test code = 7.5 g/dL 13.5-18 LL 6526471144) AC TC02 (test code = 32 mmol/L See_Comment H [Autom ated message] 3002249404) The system [employer] generated this result transmit tennille reference range : 23-27 mmol/L. T he reference range was not used to interpret this result as normal/abnormal . Lab Interpretation Abnormal (test code = 31552-5) [facility] ACT HIGH [id number] 15:16:00 Test Item Value Reference Range Interpretation Comments ACTHR (test code = See_Comment H [Automat ed message] ) The system [employer] generated this result transmitted ref erence range: 96 - 152 Seconds. The reference range was not used to int erpret this result as normal/abnormal . Lab Interpretation (test Abnormal code = 40020-9) [facility] ACT HIGH [id number] 15:09:00 Test Item Value Reference Range Interpretation Comments ACTHR (test code = See_Comment H [Automat ed message] ) The system [employer] generated this result transmitted ref erence range: 96 - 152 Seconds. The reference range was not used to int erpret this result as normal/abnormal . Lab Interpretation (test Abnormal code = 17864-9) [facility] Packed RBC (in units), 2 Units 2019-09-01 14:20:50 Test Item Value Reference Range Interpretation Comments Cross Match Result Compatible (test code = 4409) ISBT Blood Type Code (test code = 516922) Unit Blood Type (test A Pos code = 4410) Unit Number (test [id number] code = 4411) Blood Expiration Date & Time (test code = 989873) Status Information Issued (test code = 4412) Product Red Blood Cells Identification (test code = 4413) Product Code (test [id number] Performed at [facility] code = 4414) Laboratory Services - [facility] [address] [place] [id number] Free: [phone] A No. [id number] [facility] ACUTE CARE [id number] 14:13:00 Test Item Value Reference Range Interpretation Comments PH (test code = 2) 7.35-7.45 PCO2 (test code = See_Comment [Automat ed message] 2605740391) The system [employer] generated this result transmit tennille reference range : 35 - 45 mmHg. The reference range was not used to interpret this result as normal/abnormal . PO2 (test code = See_Comment H [Automated message] 9906934563) The system [employer] generated this result transmit tennille reference range : 80 - 100 mmHg. The reference range was not used to interpret this result as normal/abnormal . BE (test code = See_Comment H [Automated message] 7933395589) The system [employer] generated this result transmit tennille reference range : -3.0 - 3.0 mEq/ L. The reference r christine was not used to interpret this result as normal/abnormal . HCO3 (test code = See_Comment H [Automate d message] 5678934021) The system [employer] generated this result transmit tennille reference range : 22 - 26 mEq/L. The reference range was not used to interpret this result as normal/abnormal . %O2HB (test code = 100.0 % 95-98 H 1121791522) NA (test code = 135 mmol/L 135-145 3715841312) K+ (test code = 4.2 mmol/L 3.5-5 6434067100) AC CA IONZ (test code = 4.80 mg/dL 4.5-5.3 4740377086) GLUCOSE (test code = 112 mg/dL 70-110 H 0442483188) AC Hematocrit (test See_Comment LL [Automa tennille message] code = 0707661294) The syste m which generated this result transmit tennille reference range : 40 - 54 VOL %. The reference range was not used to interpret this result as normal/abnormal . THB (test code = 6.5 g/dL 13.5-18 LL 0746007905) AC TC02 (test code = 32 mmol/L See_Comment H [Autom ated message] 9660992705) The system [employer] generated this result transmit tennille reference range : 23-27 mmol/L. T he reference range was not used to interpret this result as normal/abnormal . Lab Interpretation Abnormal (test code = 94043-1) [facility] ACT HIGH [id number] 13:57:00 Test Item Value Reference Range Interpretation Comments ACTHR (test code = See_Comment L [Automat ed message] 3892505707) The system [employer] generated this result transmitted ref erence range: 96 - 152 Seconds. The reference range was not used to int erpret this result as normal/abnormal . Lab Interpretation (test Abnormal code = 62515-7) [facility] Packed RBC (in units), 4 Units 2019-09-01 12:50:33 Test Item Value Reference Range Interpretation Comments Cross Match Result Compatible (test code = 4409) ISBT Blood Type Code (test code = 826558) Unit Blood Type (test A Pos code = 4410) Unit Number (test [id number] code = 4411) Blood Expiration Date & Time (test code = 856605) Status Information Issued (test code = 4412) Product Red Blood Cells Identification (test code = 4413) Product Code (test T9320T81 Performed at [facility] code = 4414) Laboratory Services - [facility] Blood [address] [place] [id number] Free: [phone] A No. [id number] [facility] GLUCOSE (AUTOMATED)2019-09-01 11:29:00 Test Item Value Reference Range Interpretation Comments POCT GLU (test code = 1870713972) 126 mg/dL 70-110 H Lab Interpretation (test code = Abnormal 83847-9) [facility] GLUCOSE (AUTOMATED)2019-09-01 09:37:00 Test Item Value Reference Range Interpretation Comments POCT GLU (test code = 1251360431) 100 mg/dL 70-110 Lab Interpretation (test code = Normal 40581-0) [facility] GLUCOSE (AUTOMATED)2019-09-01 06:00:00 Test Item Value Reference Range Interpretation Comments POCT GLU (test code = 8676851304) 90 mg/dL 70-110 Lab Interpretation (test code = Normal 73041-5) [facility] GLUCOSE (AUTOMATED)2019-09-01 02:26:00 Test Item Value Reference Range Interpretation Comments POCT GLU (test code = 7772457920) 53 mg/dL 70-110 L Lab Interpretation (test code = Abnormal 79206-9) [facility] GLUCOSE (AUTOMATED)2019-08-31 22:18:00 Test Item Value Reference Range Interpretation Comments POCT GLU (test code = 1127496083) 151 mg/dL 70-110 H Lab Interpretation (test code = Abnormal 75116-0) [facility] Type and Screen expires at midnight on the 3rd day after it was drawn. A current Type and Screen is required when RBCs are requested. For all other blood products, a Type and Screen performed during the current hospitalization i...2019-08-31 20:48:31 Test Item Value Reference Range Interpretation Comments ABO & RH (test code A Positive Performe d at [facility] = 20) Laboratory Serv [facility] [address] [place], [place] [address]Toll Free: [phone] 266CLIA No. [id number] IAT (test code = Negative Performed a t [facility] 1185) Laboratory [facility] [address] [place], [place] [address] 4Toll Free: [phone] 266CLIA No. [id number] [facility] GLUCOSE (AUTOMATED)2019-08-31 18:07:00 Test Item Value Reference Range Interpretation Comments POCT GLU (test code = 2160409827) 76 mg/dL 70-110 Lab Interpretation (test code = Normal 78557-6) [facility] [id number] 16:26:00 Test Item Value Reference Range Interpretation Comments Case Report (test code Surgical Pathology ? ? = [id number]) ?Case: [id number] ? Authorizing Provider: ?Marlo Osman MD ? ? ? Collected: ? 08/26/2019 0744 ?Ordering Location: ? ? [facility] Surgical ? ? ? Received: ?08/26/2019 0923 ? Center [facility] ? Pathologist: ? Ewa Cabrera MD ? Specimens: ? A) - STOMACH, pyloric mass ? B) - ESOPHAGUS, BIOPSY @ 40 CM ? C) - ESOPHAGUS, BOIPSY @ 39 CM ? D) - ESOPHAGUS, BIOPSY @ 38 CM ? E) - ESOPHAGUS, BIOPSY @ 37 CM ? Final Diagnosis (test l1dpiPTiYLUia7egSHHfvN code = 4386319089) FuZzEwMzNcZnRuYmpcdWMx TXuwdzTwPBgex9BzA2TrAt AwMFxhbnNpXGRlZmxhbmcx CBDsTSV4cgAtOIAfHCwnNJ VlJObvPy8asZSfbOmeJtHz GWInd7ortpHVuwtaxQz6t7 zxFMHiBhQ3yPKpXOanJ4rw ssDwqQAlPRMyBTc3aL68ZA DxbQ3cdDFkWBzburOqFzP0 FPueMAPgSxB6ZHWpfVAoQM UsS5noNYWaMOuxTTWvHLoj nAUtKUZ8pQdll2T4bKFclG ZkzVjcZbIeJqFfLUEOq1Ee PNz0yIzoH9TvTCRaIvU9dG QgUGFyYWdyYXBoIEZvbnQ7 vE04YTtrseE9qOGdf7Ovz9 7sx274oW2xyULtLRV3ZSLq BOKapEOwCJXdTPR6DFKtmK ZbX0xjYCdvZC0cklyfCCF8 MFxtYXJndDcyMFxtYXJnYj KmiZMgHCJffObrVDifd004 JHD7UjQuCK3kG3Lst6J8sR 9maXRcZGVmdGFiNzIwXGZv hv7nxNRkGQpgz5LpYOV2xd F2jQKypLAjTVEiYR74Gloa v4FcKxsaVKL1LJFjmrKdt5 Ijx1bhCoAxpfCzM0agR1Ns ZHJoZWFkXHBnYnJkcmZvb3 Zmn4NwnNFurCg1m9lpBHRw VLSfwCsdl2xtIXL3BSUuP0 O5kYPmn8qjLRcuHKOtgPD2 lvYkGOTjmMBvX4GyxP5wAW zdKG1aacv2y7hmRbRmGX6n pyinv4xgLUpwVWNiUUJ9Rj CzBIJpg6DkzdocGlWqv7Uw dVKlFOvgR35ci841PMIfxu PpV0hayTRdmygfbVYcwufu GHrnufB3KYEuCXPpLIujFT YxXGZzMjBcbGFuZzEwMzNc aGljaFxmMVxkYmNoXGYxXG vaE6ecZdCxMiPoSHwsZFGo KL1rO8MIDZWMVXesYGtKJ2 EYYvYOMUTULPFOM9pRTASD UA2TTTypuPXcFRIrEWWxTT RCLCINRepNALDVRB0WUOCd S5hJVdFoWTJNWj6ZDKkhB9 yCTAGNI3AZDFTBUMrYTOeN QHMCZKXPH2OYDCBSLCltSQ PaJBWeDPMwVI4ZDynDUbAA TlZPTFZFRCBCWSBBREVOT0 5QEYamJBQvAQKyXJNcSO4A XpzVXlEWQ7QsDQ6HL0bCNG QgQlkgSElHSCBHUkFERSBE WVNQTEFTSUFccGFyICBccG AvQCWiBTKNE2MXQLnWEbfs UCDsQZSgM03aTQVLT1OAYZ crnUQcKZRuUKLsMSPTX5rC QV8QKtUGLGYVI1GfZ6gALK SMNoYTZ0SVWyBSJC7HNLCB NDJISLQqUULLGmIXD7RPQw XsQ8iBOCRZTGXDNHLBWKTT N7EWMYpPT0tvEFVpIAEcUT FlZE3ABQEIE3QHZNKOGRRX REVOVElGSUVEXHBhclxwYX GdTd2pQMJVQHsOS8WZQWJO VCAzOSBDTSwgQklPUFNZOl xwYXJccGFyZFxwbGFpblxm GMchzkF3WBSdFPfbPODsUJ ZzMjBcbGFuZzEwMzNcaGlj aFxmMVxkYmNoXGYxXGxvY2 bpOdEhMwInAGRlPHQtYJ1g D24XVX0BWSEtCAFZQ5IZWP oLJXusRU0IJYDZZG8UZLLL QONKKItZZ8mYDFNRD87HON BYNZ6WOUgHJPfyWnCJZgQI GpBEE63ZRCEOSGImoODkEK FsXHBsYWluXGYwXGZzMjRc xKaifO5xHvMnGfThTXypAO 4eSNNqA8wbtDNwFPSrVWMl K0epYqNosB2faFxhNPsjug IwICAgICAgLSBOTyBEWVNQ TEFTSUEgSURFTlRJRklFRF bcNMTwaNLnXKKoICKLA4NR YHvEQmebWSFePqndF55lLF SNI9LTLHjlkWWdJWTphxAr bCxqxR8zUsJvBuOiBMyunR FpblxmMVxmczIwXGxhbmcx UWJeMBsjI2ucJuGbVEMhoP zrNMhsn4UtIUQqQXJeWoHh ICAgICAtIENPTFVNTkFSIE 1FY62EFNYBFHCQHNqEJYPF VElOQUwgTUVUQVBMQVNJQS shW38UU7rKVSVRGTVJJXGJ IEJBUlJFVFMgRVNPUEhBR1 CLTTSkrdHhEMTeUX2lQw6t VLgDCVgRT4wZAUaDOQ6OEX ZJRURccGFyXHBhciBFLiAg SERWQWwDC6VJBRYSWRBmUm BDTSwgQklPUFNZOlxwYXIg FZKnDPIoKGNWWFZHF0QLEC 2AJ51OIJCUMFMRNITVXcoN QYKZK13KFYGTZADVY4huFL CmMWSlIIUfKA3GGIKFZ6SM QVNJQSBJREVOVElGSUVEXH IdrkgdQNOnwUdmeZ5dLbVz CuXlXmatPI0qGLKoF2tkuV FyCZQxMNKkZ6dxScLisN2u aFxmMVxjZjJcZnMyMiBNdW MpUDTjlDFELGweyQZvuO7c KF4MTkVxZTRzKWEhGhYtNR UmIBJ8XwMeRL7orIthoX8p YxRlAfGtUMkjVM1cJUMdY9 vbsTZfXQIfPSYxL0rbWuBd zV1ewQajGXgmasOiBWSjyy aiDJB8p4vccLTbJJHxiHAi GkWsWDDxSDObh8hvGQGzsK FuZzEwMzNcZnRuYmpcdWMx ZJVsZzFhn0ubs191kQOhh2 bzFGQvUzX9wZLaWHZtyLhs ciy6wCpkCnIoGKZxf0xxtz BcZmNoYXJzZXQwIEFyaWFs Y029KWQqAFgtj1euy8CvNN ZvdTOnu8Z8IOVHJQgkKsVz K268x7paq7iibaWrzEG6DV ToKYS1OXtbsmEcqpU6ZWzl lLOvTaA1UKoydtTuAZlkjc DwtjSjKdk9VKRcI839SGP2 kDfql9bmLNS3LPAlYQNfIq tkUi8luHDzK187UEXbAWLH FHTwiTi6IEAdwcHhucTapW PXh031E592b4pgBPZvdsGn bDmUgwtkc4ygT518JCBdzX VydzEyMjQwXHBhcGVyaDE1 ICYnRO7xhjpvSUigLJxfKY JclvC1FRTpuCQdD6DfQOEg WN5ieudkRDR6OFcuPILiBF W5EzAmOEPwm4Duxwy7AqWr wm6qej78QTX2s5JdvGmfDA R0QTS7QtHfFi3jiWVsOROf RX5qChThwRVnSRUvaf51qO ylOGnnaeZxbZ2uQxSxUVYo cPNhRORjTE6emUKzHKBxiQ 5ucmxjXHBnYnJkcmhlYWRc aIpoxwVyLh7gzMxqEVR3UV yxT0iykI1lZjR1KHrdN5gr uK6sQCn2VLxquDJ0ZEIgaU 6yJS6tjxpbh2wbPWqvMJwp PPAntgK6lzG0WMXqgTOgK9 AnuV7tUZDnJE4ycopar9zn PVA0ZGsvODIiEWY0YnQpDW Itj3Zpuee7SdZrq1VymCJp TBbeO56bk083YIGwqpAiN3 xwbGFpblxwbGFpblxmMFxm uaJ6FHXhZGRlMKmzPXBvCX ZzMjBcbGFuZzEwMzNcaGlj aFxmMVxkYmNoXGYxXGxvY2 xbSoNfC0WeTNRjRiErwKKp JMetiVR8VDRiMYFsc66skR w9NQNradcgf7JoOMGxaHFr gZUumA7gmhOty8ieURUvIN PdEKIdV8PgLYO1jEIqJIRw eEWuyVT9SJ8rrqVkIA9dCG UgYnkgcmVzaWRlbnRzLCBm IXplj3jyEL1qWTRrhUfeyS 8qwAL7ONKkt3xzyFOkfMEz e6aen9DlteOlYQcwVROsET cpDUSuZZSrIF9yRCGrrAPn xnWxw5U4GgbuxGPrmlwzVc newaP4SIjykkgdZCFvJYlm E0meHyUnAKVojPskIvvyr6 NoXGYyXGZzMjhccGFyfX0= Final Diagnosis Comment z9rmqDPvIFBkxUVePoIsWF (test code = EoUTSjt6tkGNLrlZEsKdLb 6835921516) MzNcZnRuYmpcdWMxXGRlZm Qqh2ucq628uFZqp8oeKIQr SnX1qZLqVZPchUXpU141SA YmWSfuu3jwg5YpCWAapBBu x1S4WXXBkwbonQn4fHkwR6 3xa0W1NhseK3tiWGTiRFTe Z0DhRN8dESWfSjm4YKW3AF A1WHBpDODkS9NeAN8dZVBm nXSyEWp4x1yiaSygDBOtHZ G9h3kvGZgwugHiOY3gbn2o sWi5v3thchGjATEmPETdpF DAAMYjC7QvaBeyLd2ctTq5 rIfiAmrkFTH7Jrx3LY0fhx 77bee3uXrwFATueyucQsG9 XGhzEWFckwhaZGb0EWvtKW EwpIQpBPFskVRjH2VoSWrf JJ6atnj0CxQyVD6xvlrgKY gjRFSrPCN0MfRiOXSde6Uu bmkbIrAjao6ttq47GEL6n0 CgwThxWFW6JJN4ZxErDt6w pKOnXIUxSH8jAeCchQLtHO Htzp24mKglIXejpjGepT1i CpXmCLScdGAeAIBwCC8iyG BwQGXzeI5knifkSATgAoJe okubOCLidLdigtRcOt7muX wtOLC8QAzrU3ebeI1hJnT3 AIasC6hbcK7bAHl1GHqaiP H1EXFovW2nGM0sszkgy1jk ZUZ7YIpjTGFvpkO8bvYfQM XjmDViS3FdkW92AdIdlXZx F7DdwF4pVJfxHDZjpog0Iu LuKq9bnNHtcXU9GEblGdio YWdlXHBnbmNvbnRccGduZG VjXHBsYWluXHBsYWluXGYw AYUrJwUkoPiyyJxcrP2pEa VnOgPcWDliKI7hFOZvY9di lMVcZTRaVTLlB7iiDbWatM 9jaFxmMVxmczIwIERyLiBR hALpaCRqPHWjfiejg9CzCR LgYZOxyOsiZTNmf9Oef1Zk U9qjTH4wAGBgM0VofLJqcP UwnIynhsvmDF2lu3MpRcwc oOZ6TFTdubMfS16yS3Dhim S6nZPlUQQpJAXilEEizx0m aXMuICBccGFyXHBhcn0= Clinical Information 1. R/O CARCINOMA2 - 5. (test code = ? R/O BARRETTS [id number]) Gross Description (test n8tbsLZiIRFxhQQjRoItMM code = 8681469685) BmPSOnc3luKRGujRWdGjAb MzNcZnRuYmpcdWMxXGRlZm Ymj0bzi021eWBgr8mqHUQb RiQ8oIZqZAYrnFBjI355BS XkXHrqz5ypk5AdWETkaVVr t1W4UICOczfvcSb3k8foHh XnOcP5hJVuWZgmF7rvulGz mVRyYKUbZ0LrkpMGBZKbTh p2wExwH36jj7N4XuowQ7pi ZWQwXGdyZWVuMFxibHVlMC S7IJXzPZV1SOyoqiGljjE1 PXossCYbWdV3SCr3v6fiyJ xwUUGxVAO5m2anGPhfflDt ZB4hxr5jbHb8q7kyovKyIM DgIJJziFAMJHUrK7ZuuNuu Mn3twMj6eSlmEiqyAFS9Ay d5PS8irs35vcv4pOuaTZJm jezvSfD2GLkrTHNuwarqDW q9GDpkAGSreRBpROCqrVIr J3GuOXqtLP0aqnq0WbRoKP 6gfgspXAzqOUOkWNG7VaXm DCTvp4TajnsgUmVloa5kmy 06ESP3l3XpaJmfWSX1WLZ3 VeZnXl5hwANkFOJbAJ6jKe UiaJLtQMCigw30iYitFLjb cuJrbG0xQyNcZNLjpSScOC MyYH5mmJNsQAAxhQ5jqdvt XHBnYnJkcmhlYWRccGdicm JrMt6rkJeqMCQ8NBdtO8ym dH5zIrM0YWhmF2hegU3gRV p4SUobyVU5HRJmmI7eBB6m pxada1egOLA0PKpeRGYzgl X9acAtBAImqPMpH7JxiU38 GuDoyXPpH0HypB1sFThoAA Rbswi1EiAtSy5oyDZnkOV6 MFxzYmtwYWdlXHBnbmNvbn RccGduZGVjXHBsYWluXHBs EThkPFVxZCJeJoQfk7DyKZ Nsh7etHdCqs0mynYb1NOwm bFxwbGFpblxmMFxmczIwXH DcFZqjSVFrSOQpQlBbS4Dt F4ijCI6dEWUbmoOzHEOxhA GoTNAvshWao3NpIUxjolLh KXJphCllPLA7vARgZHLqWJ XiLKGeLX24SSTcZQzbBOHo YPKsQnStbPfbBUssXLy4Hm xwbGFpblxmMVxmczIwIHMg bmFtZSwgVUggbnVtYmVyIF xwbGFpblxmMVxmczIwXHU4 MvUnNFmwWSIlbMzkaM9gPj VtIyXrFLAqyU0nLIIwPSKx jKvynihmJP8gg2GjtCyrcF 3kZhFkSqVhOPq2GZOmWSOd Hqq3MKJyAKyxMZGaXCDnTe AuLWEiEZEhs42seWA3moJs OtC3PZZyle6zzK6xLIkjxv MuyVjlgbXgajMddL7doTIa uQWyb27blEW7fOFblHSdEl JcJ78baxTiZZzhMlgxeVBr NfvulUUzWlMqE32aIUYrRu E9QKVoVmP4LGZrXNNljHzh MK1bLZfkOV87GVoeWI87TT NtIGFuZCAxLjIgeCAwLjcg uAEdRlEuJ13aZxYNmXHsRo DpVVYnKRD9IPBoCLRgqQXj htXuuaMlbM9lHBLhJW9tZD YotwxjqPk9XZYxA3Kgw80d ZCByZXZlYWxpbmcgYSBmcm adSbbjMWDyx9f5mM4aAKFc aHXdm6IsUlRbUY1eSLUePZ UnDHVnBEukCPKxDqXkT67q mjPxNOPjFWHbdVFoY6GjLM BhbmQgdGhlIGVudGlyZSBz mBMxtE4adeXhajYcsUFitT W1RMCwFLBkPCFfWVNCCIFg EITeqvKLUBD6zK8qSQVrBZ N4BGFldzREMFruoNXcwfin LAocwmIrOFC6KvAjQDeeCG FwpQhpwN2dNtHkIjXyCKGY EQdyyIXvK4MriEKvg1z3hX 9pZCBmcmFnbWVudFxwYXIg DGYpNZMSDHrht9Xoe85hBH kkntymp8MbyA0pqTMswIAm XjJgY41joqHnvKKfRTB5QD ExMCwgMiBzbWFsbGVzdCBm aaTysNRobASnHQS3Cz0xnU ZrFYRoGPMjmrD7GQn7XEVl ksJZrUFllJ7ustECNAxrEQ HqS8LlyjQpRNfgSJLuji1t bGluIGxhYmVsbGVkIHdpdG ggdGhlIHBhdGllbnRccGxh yI3sOsGdAvEhQOs9KIIzKz BcJzkyXHBsYWluXGYxXGZz SeVkcwDpFX9fKEWUSHQwxN 8xXWVpGOIdiAkwH3LxYZVy sT6oc8exWHQxNBYzR02asC asiZ3lLrGcGnGrSSo4OJUf BEUjAtg2ZBAjIFcwPXPoMR EnYjApBRLsMBCnc84xnCV3 aeEkCfUyWAJhks4afC0pNG hpftCcoXcrqmFtk2B9OTJj c5I2DWGwwtHgwTPyaOEmYQ XiRaI1TXGgPnC4PQFzWcXh vVksHVSgKRQfdZWbrH4dwg YyiyFauGs2IXCaDUZ3mWPl pYocFAWpWavtsIE5SBRnJe ZjbrRjc1MdfGs4cGFzHTwz POAmqD6oqJ7eHnJlGBZoju JQsARhgG4tojDRGLnkZGVj R5LqmrGnJNupBMNdgn1fhI luIGxhYmVsbGVkIHdpdGgg dGhlIHBhdGllbnRccGxhaW 4iOnGqJyMdPXm0HCQuIaYa JzkyXHBsYWluXGYxXGZzMj ZehkTeGN7oNYXGPQAokP1e RBUyHMZbsNhnY2FyEZXurM 4ny1myORDwAuddL28rzAms pY2sZyMoCsCuMWl0ZIEyIB HoKgu4GPOjHPqvCGEzOTUv YnQgQAHdITEsd41eiWI0ys QfSiWmCSAnvl4dlM6nSOng ymUqkOgecuKhh0R5PULst8 C1MRIfumTnjTGyxCWgDZHg QtL4CRAsRpP4HTQxXlWfzK uxRZGyJMLbaFSyiK5kckQm vyQmzSj8KNEsZIB2zUEkfW keHGYpJiwqhAX0LKIhCxDf ieRcy8RurZi1dRDmWLifIV GbzB2zpN3wKwOwDBMijaED tRJsuN2nviVKFBpaQFQkZ8 GxtuBnYLitBZXtzk0lpFem IGxhYmVsbGVkIHdpdGggdG irAPKkkFzjeiLxqRjjjW4o GaSuHiMqWKi0TTVvHxUrBz kyXHBsYWluXGYxXGZzMjAg lwNxWG8yXUIJPLUxfD2nNW GbEDXgvKskJ9RhBAJfzT0d b6tsVFWoAwppP95eqLattW 0nMiJoIlOcMCg0XFEgKCAk Zme1JWJoAWurGGHfKZNoKz XpLTCrGCWrf65qtFR0goAe EzArPLEfaq6xnC0zHPcqmj KroBtdbsYnr3Q4RWMdl7S0 ZSBmcmFnbWVudHMgKDAuNC B1GDDzBxP2KKBoPcVoyYwe LUWaXSRsbBSsjD2srzVixu PpgZp4FACyHXE6mFQjtKoi DXWdAqbsyCE1EBEpFuIxda Dum9XjfYi9jSUtRQliQWNs aY5luO5wWKBjNGAijcFDwH QkyW3umiUCYTytMSUzT5Xr fgHoDUapAUVzek8pvUurZK xhYmVsbGVkIHdpdGggdGhl OINjjWmpcmDrpDgncX4fCc HaJfRrCRw9ATOuDxIdUyij XHBsYWluXGYxXGZzMjAgcy SuFZ3wHOKGJZRsoK7nNYSr NROyyQbqZ9BzWQGtrU9ir5 fjDGVeQgpeE04czCdrfF8x YdHfZgIdYEs3JZLeZECrAn k3HECkOXtcYTUnWPWvVkOa JYHfDQMxw39abBA3bzQwLr ZzPQWsqm6suE7nNDdqkqJa yXkrmcZce1R2RADpv4O7ZA BmcmFnbWVudHMgKDAuNiB4 MDThXkU3NDRuEeNafYihPC JfXWEmdRKqxC3tbrWztfRr wFr5QTYnPJK7dUWghRlhTC VhYosagGA6ECBoMoSkprCi o8CpjVa3kKPePNkvBGYkkD 5rdB3lUQViHQWjisftVDVf XHBsYWluXGYwXGZzMjBccG qlwB3sAfFfScEcWINHAZDl KD21zvvmucVNPHZhEBB1uG 4tt5ibf8UkQJDfoAZ6GT14 PBbvbNBrhxmeOzuxrlG3AA xykwulRZVeMOljM6tpTfKp LRCecZhhSmayx7KjSOReFJ HnNJmkuzM7VCHyillrUZAg iGwyuThkoX8vLoFwHlOaCA xwbGFpblxmMVxmczIwXHBh cn0= Embedded Images (test code = 0371813522) [facility] GLUCOSE (AUTOMATED)2019-08-31 14:14:00 Test Item Value Reference Range Interpretation Comments POCT GLU (test code = 2165981948) 88 mg/dL 70-110 Lab Interpretation (test code = Normal 82053-4) [facility] METABOLIC PANEL (NA, K, CL, CO2, GLUCOSE, BUN, CREATININE, CA)2019-08-31 10:39:00 Test Item Value Reference Range Interpretation Comments NA (test code = 137 mmol/L 135-145 0128621680) K (test code = 3.8 mmol/L 3.5-5 6717025060) CL (test code = 104 mmol/L 98-108 1533656700) CO2 TOTAL (test code = 27 mmol/L 23-31 2411627633) AGAP (test code = 2-16 9412297639) BUN (test code = 25 mg/dL 7-23 H 7261775639) GLUCOSE (test code = 115 mg/dL 70-110 H 6858962785) CREATININE (test code = 1.79 mg/dL 0.6-1.25 H 7777402362) CALCIUM (test code = 7.8 mg/dL 8.6-10.6 L 8280217533) eGFR Calculation mL/min/1.73m2 (Non-) (test code = 0324686891) eGFR Calculation mL/min/1.73m2 () (test code = 3782604357) JUAN LUIS (test code = JUAN LUIS) [...] tests). Lab Interpretation Abnormal (test code = 84284-5) [facility] 10:31:00 Test Item Value Reference Range Interpretation Comments POCT GLU (test code = 0014317728) 137 mg/dL 70-110 H Lab Interpretation (test code = Abnormal 16224-9) [facility] WITH [id number] 10:30:00 Test Item Value Reference Range Interpretation [...] (test code = 35.0 fL 38.5-51.6 L 86716-2) RDW-CV (test code = 14.7 % 12.1-15.4 788-0) PLT (test code = See_Comment [Automated 777-3) message] The sy stem which generated this result transmitted reference range : 150 - 328 10*3/ ?L. The reference r christine was not used to interpret this result as normal/abnormal . MPV (test code = 10.4 fL 9.8-13 40214-5) NRBC/100 WBC (test See_Comment [Automat ed code = 6355235936) message] The system which generated this result transmitted reference range : 0.0 - 10.0 /100 WBCs. The refer ence range was not u sed to interpret th is result as normal/abnormal . NRBC x10^3 (test code <0.01 See_Comment [Auto mated = [id number]) message] The s ystem which generated this result transmitted reference range : 10*3/?L. The reference range was not used to interpret this result as normal/abnormal . GRAN MAT (NEUT) % 60.5 % (test code = 770-8) IMM GRAN % (test code 0.20 % = 0150443348) LYMPH % (test code = 24.9 % 736-9) MONO % (test code = 9.6 % 5905-5) EOS % (test code = 4.1 % 713-8) BASO % (test code = 0.7 % 706-2) GRAN MAT x10^3(ANC) 5.16 10*3/uL 1.99-6.95 (test code = 9476097516) IMM GRAN x10^3 (test <0.03 0-0.06 code = 4722010662) LYMPH x10^3 (test code 2.13 10*3/uL 1.09-3.23 = 731-0) MONO x10^3 (test code 0.82 10*3/uL 0.36-1.02 = 742-7) EOS x10^3 (test code = 0.35 10*3/uL 0.06-0.53 711-2) BASO x10^3 (test code 0.06 10*3/uL 0.01-0.09 = 704-7) Lab Interpretation Abnormal (test code = 75126-8) [facility] GLUCOSE (AUTOMATED)2019-08-31 06:17:00 Test Item Value Reference Range Interpretation Comments POCT GLU (test code = 5090892942) 177 mg/dL 70-110 H Lab Interpretation (test code = Abnormal 64862-7) [facility] GLUCOSE (AUTOMATED)2019-08-31 02:18:00 Test Item Value Reference Range Interpretation Comments POCT GLU (test code = 1687340562) 86 mg/dL 70-110 Lab Interpretation (test code = Normal 09508-4) [facility] GLUCOSE (AUTOMATED)2019-08-30 21:57:00 Test Item Value Reference Range Interpretation Comments POCT GLU (test code = 6186700912) 140 mg/dL 70-110 H Lab Interpretation (test code = Abnormal 22319-7) [facility] GLUCOSE (AUTOMATED)2019-08-30 18:10:00 Test Item Value Reference Range Interpretation Comments POCT GLU (test code = 0626010455) 95 mg/dL 70-110 Lab Interpretation (test code = Normal 19978-9) [facility] GLUCOSE (AUTOMATED)2019-08-30 14:11:00 Test Item Value Reference Range Interpretation Comments POCT GLU (test code = 3819893433) 123 mg/dL 70-110 H Lab Interpretation (test code = Abnormal 84249-9) [facility] GLUCOSE (AUTOMATED)2019-08-30 11:04:00 Test Item Value Reference Range Interpretation Comments POCT GLU (test code = 4823604749) 136 mg/dL 70-110 H Lab Interpretation (test code = Abnormal 34200-9) [facility] GLUCOSE (AUTOMATED)2019-08-30 05:39:00 Test Item Value Reference Range Interpretation Comments POCT GLU (test code = 8356871466) 172 mg/dL 70-110 H Lab Interpretation (test code = Abnormal 22347-3) [facility] GLUCOSE (AUTOMATED)2019-08-30 04:19:00 Test Item Value Reference Range Interpretation Comments POCT GLU (test code = 7634383005) 198 mg/dL 70-110 H Lab Interpretation (test code = Abnormal 93489-5) [facility] GLUCOSE (AUTOMATED)2019-08-29 18:14:00 Test Item Value Reference Range Interpretation Comments POCT GLU (test code = 8561938482) 93 mg/dL 70-110 Lab Interpretation (test code = Normal 59085-0) [facility] GLUCOSE (AUTOMATED)2019-08-29 14:19:00 Test Item Value Reference Range Interpretation Comments POCT GLU (test code = 1208420215) 70 mg/dL 70-110 Lab Interpretation (test code = Normal 91084-8) [facility] [place], [place]. METABOLIC PANEL (48890)2019-08-29 09:59:00 Test Item Value Reference Range Interpretation Comments NA (test code = 136 mmol/L 135-145 7424881293) K (test code = 3.5 mmol/L 3.5-5 7749981223) CL (test code = 105 mmol/L 98-108 9794020337) CO2 TOTAL (test code = 26 mmol/L 23-31 1840569848) AGAP (test code = 2-16 4315329203) BUN (test code = 21 mg/dL 7-23 6682833285) GLUCOSE (test code = 58 mg/dL 70-110 L 3847855206) CREATININE (test code = 0.95 mg/dL 0.6-1.25 3922445363) TOTAL BILI (test code = 0.2 mg/dL 0.1-1.8 5318747653) CALCIUM (test code = 7.4 mg/dL 8.6-10.6 L 6545120698) T PROTEIN (test code = 5.2 g/dL 6.3-8.2 L 2607176678) ALBUMIN (test code = 2.4 g/dL 3.5-5 L 4083273555) ALK PHOS (test code = 67 U/L 34-122 5737126168) ALTv (test code = 15 U/L 5-50 1742-6) AST(SGOT) (test code = 28 U/L 13-40 1700572398) eGFR Calculation mL/min/1.73m2 (Non-) (test code = 2032483965) eGFR Calculation mL/min/1.73m2 () (test code = 9816716718) JUAN LUIS (test code = JUAN LUIS) [...] tests). Lab Interpretation Abnormal (test code = 94957-2) [facility] GLUCOSE (AUTOMATED)2019-08-29 09:59:00 Test Item Value Reference Range Interpretation Comments POCT GLU (test code = 3650675486) 130 mg/dL 70-110 H Lab Interpretation (test code = Abnormal 93231-3) [facility] GLUCOSE (AUTOMATED)2019-08-29 06:21:00 Test Item Value Reference Range Interpretation Comments POCT GLU (test code = 9015262218) 79 mg/dL 70-110 Lab Interpretation (test code = Normal 15115-1) [facility] 03:53:00 Test Item Value Reference Range Interpretation Comments POCT GLU (test code = 2307638079) 157 mg/dL 70-110 H Lab Interpretation (test code = Abnormal 22119-2) [facility] WITH [id number] 00:28:331. Slightly enlarged liver with increased and [...] disease.4. Right renal cyst5. [facility] 22:47:00 Test Item Value Reference Range Interpretation Comments POCT GLU (test code = 7551626664) 139 mg/dL 70-110 H Lab Interpretation (test code = Abnormal 92722-6) [facility] GLUCOSE (AUTOMATED)2019-08-28 18:56:00 Test Item Value Reference Range Interpretation Comments POCT GLU (test code = 3993391611) 90 mg/dL 70-110 Lab Interpretation (test code = Normal 67403-6) [facility] (NA, K, CL, CO2, GLUCOSE, BUN, CREATININE, CA)2019-08-28 14:50:00 Test Item Value Reference Range Interpretation Comments NA (test code = 136 mmol/L 135-145 9494419500) K (test code = 4.1 mmol/L 3.5-5 2040255655) CL (test code = 105 mmol/L 98-108 6669597260) CO2 TOTAL (test code = 27 mmol/L 23-31 6567016388) AGAP (test code = 2-16 5073311230) BUN (test code = 26 mg/dL 7-23 H 2199463046) GLUCOSE (test code = 78 mg/dL 70-110 8646642735) CREATININE (test code = 1.06 mg/dL 0.6-1.25 1508573968) CALCIUM (test code = 7.5 mg/dL 8.6-10.6 L 7871404943) eGFR Calculation mL/min/1.73m2 (Non-) (test code = 6784745769) eGFR Calculation mL/min/1.73m2 () (test code = 5058200926) JUAN LUIS (test code = JUAN LUIS) [...] tests). Lab Interpretation Abnormal (test code = 35057-9) [facility] Test Item Value Reference Range Interpretation Comments MAGNESIUM (test code = 0903261074) 2.3 mg/dL 1.7-2.4 Lab Interpretation (test code = Normal 18201-4) [facility] WITH [id number] 14:45:00 Test Item Value Reference Range Interpretation [...] (test code = 35.3 fL 38.5-51.6 L 71655-0) RDW-CV (test code = 14.6 % 12.1-15.4 788-0) PLT (test code = See_Comment [Automated 777-3) message] The sy stem which generated this result transmitted reference range : 150 - 328 10*3/ ?L. The reference r christine was not used to interpret this result as normal/abnormal . MPV (test code = 10.9 fL 9.8-13 04689-1) NRBC/100 WBC (test See_Comment [Automat ed code = 3942327217) message] The system which generated this result transmitted reference range : 0.0 - 10.0 /100 WBCs. The refer ence range was not u sed to interpret th is result as normal/abnormal . NRBC x10^3 (test code <0.01 See_Comment [Auto mated = 0456788282) message] The s ystem which generated this result transmitted reference range : 10*3/?L. The reference range was not used to interpret this result as normal/abnormal . GRAN MAT (NEUT) % 63.4 % (test code = 770-8) IMM GRAN % (test code 0.50 % = 6539010749) LYMPH % (test code = 21.1 % 736-9) MONO % (test code = 10.4 % 5905-5) EOS % (test code = 4.1 % 713-8) BASO % (test code = 0.5 % 706-2) GRAN MAT x10^3(ANC) 4.14 10*3/uL 1.99-6.95 (test code = 3957079708) IMM GRAN x10^3 (test 0.03 10*3/uL 0-0.06 code = 6328864511) LYMPH x10^3 (test code 1.38 10*3/uL 1.09-3.23 = 731-0) MONO x10^3 (test code 0.68 10*3/uL 0.36-1.02 = 742-7) EOS x10^3 (test code = 0.27 10*3/uL 0.06-0.53 711-2) BASO x10^3 (test code 0.03 10*3/uL 0.01-0.09 = 704-7) Lab Interpretation Abnormal (test code = 40317-6) [facility] GLUCOSE (AUTOMATED)2019-08-28 14:07:00 Test Item Value Reference Range Interpretation Comments POCT GLU (test code = 5840795093) 134 mg/dL 70-110 H Lab Interpretation (test code = Abnormal 55653-7) [facility] GLUCOSE (AUTOMATED)2019-08-28 07:20:00 Test Item Value Reference Range Interpretation Comments POCT GLU (test code = 8918754391) 144 mg/dL 70-110 H Lab Interpretation (test code = Abnormal 80806-8) [facility] GLUCOSE (AUTOMATED)2019-08-28 03:13:00 Test Item Value Reference Range Interpretation Comments POCT GLU (test code = 6590208554) 203 mg/dL 70-110 H Lab Interpretation (test code = Abnormal 26337-7) [facility] 22:32:00 Test Item Value Reference Range Interpretation Comments POCT GLU (test code = 2164153295) 96 mg/dL 70-110 Lab Interpretation (test code = Normal 36256-4) [facility] [id number] 18:39:06 Bilateral diffuse interlobular septal thickening, bilateral [...] for increased pulmonaryarterial pressure, echocardiographic evaluation is recommended.[facility]2019-08-27 17:57:00 Test Item Value Reference Range Interpretation Comments POCT GLU (test code = 5420474853) 155 mg/dL 70-110 H Lab Interpretation (test code = Abnormal 16538-2) [facility] GLUCOSE (AUTOMATED)2019-08-27 14:13:00 Test Item Value Reference Range Interpretation Comments POCT GLU (test code = 9913632195) 151 mg/dL 70-110 H Lab Interpretation (test code = Abnormal 21325-3) [facility] GLUCOSE (AUTOMATED)2019-08-27 10:41:00 Test Item Value Reference Range Interpretation Comments POCT GLU (test code = 212 mg/dL 70-110 H Notifi ed Provider [id number]) Lab Interpretation (test Abnormal code = 08946-9) [facility] GLUCOSE (AUTOMATED)2019-08-27 05:59:00 Test Item Value Reference Range Interpretation Comments POCT GLU (test code = 160 mg/dL 70-110 H Notifi ed Provider [id number]) Lab Interpretation (test Abnormal code = 28997-8) [facility] GLUCOSE (AUTOMATED)2019-08-27 04:13:00 Test Item Value Reference Range Interpretation Comments POCT GLU (test code = 4873296791) 112 mg/dL 70-110 H Lab Interpretation (test code = Abnormal 58281-5) [facility] GLUCOSE (AUTOMATED)2019-08-27 02:40:00 Test Item Value Reference Range Interpretation Comments POCT GLU (test code = 184 mg/dL 70-110 H Notifi ed Provider [id number]) Lab Interpretation (test Abnormal code = 05882-3) [facility] GLUCOSE (AUTOMATED)2019-08-26 23:44:00 Test Item Value Reference Range Interpretation Comments POCT GLU (test code = 2506577914) 263 mg/dL 70-110 H Lab Interpretation (test code = Abnormal 45328-2) [facility] GLUCOSE (AUTOMATED)2019-08-26 23:02:00 Test Item Value Reference Range Interpretation Comments POCT GLU (test code = 1667916651) 246 mg/dL 70-110 H Lab Interpretation (test code = Abnormal 20921-0) [facility] Arterial Blood Gas.2019-08-26 20:26:00 Test Item Value Reference Range Interpretation Comments PH (test code = 2) 7.35-7.45 H PCO2 (test code = See_Comment [Automat ed message] 8456806480) The system [employer] generated this result transmitted ref erence range: 35 - 45 mmHg. The reference r christine was not used to interpret this result as normal/abnor mal. PO2 (test code = See_Comment LL [Automated message] 1373116855) The system [employer] generated this result transmitted ref erence range: 80 - 100 mmHg. The reference r christine was not used to interpret this result as normal/abnor mal. HCO3 (test code = See_Comment H [Automate d message] 9561196178) The system [employer] generated this result transmitted ref erence range: 22 - 26 mEq/L. The reference r christine was not used to interpret this result as normal/abnor mal. BE (test code = See_Comment H [Automated message] 5903241634) The system [employer] generated this result transmitted ref erence range: -3.0 - 3 .0 mEq/L. The refe rence range was not u sed to interpret this result as normal/abnor mal. Lab Interpretation (test Abnormal code = 81720-5) [facility] GLUCOSE (AUTOMATED)2019-08-26 18:12:00 Test Item Value Reference Range Interpretation Comments POCT GLU (test code = 9244353020) 172 mg/dL 70-110 H Lab Interpretation (test code = Abnormal 36461-9) [facility] GLUCOSE (AUTOMATED)2019-08-26 15:33:00 Test Item Value Reference Range Interpretation Comments POCT GLU (test code = 1692589630) 86 mg/dL 70-110 Lab Interpretation (test code = Normal 27039-8) [facility] GLUCOSE (AUTOMATED)2019-08-26 11:57:00 Test Item Value Reference Range Interpretation Comments POCT GLU (test code = 1112536888) 86 mg/dL 70-110 Lab Interpretation (test code = Normal 86807-2) [facility] GLUCOSE (AUTOMATED)2019-08-25 21:38:00 Test Item Value Reference Range Interpretation Comments POCT GLU (test code = 8506300767) 89 mg/dL 70-110 Lab Interpretation (test code = Normal 94822-5) [facility] GLUCOSE (AUTOMATED)2019-08-25 20:46:00 Test Item Value Reference Range Interpretation Comments POCT GLU (test code = 4654207835) 75 mg/dL 70-110 Lab Interpretation (test code = Normal 90015-0) [facility] GLUCOSE (AUTOMATED)2019-08-25 20:46:00 Test Item Value Reference Range Interpretation Comments POCT GLU (test code = 9620219220) 76 mg/dL 70-110 Lab Interpretation (test code = Normal 67115-0) [facility] GLUCOSE (AUTOMATED)2019-08-25 20:12:00 Test Item Value Reference Range Interpretation Comments POCT GLU (test code = 8166472988) 83 mg/dL 70-110 Lab Interpretation (test code = Normal 84830-3) [facility] GLUCOSE (AUTOMATED)2019-08-25 19:45:00 Test Item Value Reference Range Interpretation Comments POCT GLU (test code = 1578245900) 96 mg/dL 70-110 Lab Interpretation (test code = Normal 05571-4) [facility] GLUCOSE (AUTOMATED)2019-08-25 19:02:00 Test Item Value Reference Range Interpretation Comments POCT GLU (test code = 4961124987) 87 mg/dL 70-110 Lab Interpretation (test code = Normal 42076-2) [facility] GLUCOSE (AUTOMATED)2019-08-25 19:02:00 Test Item Value Reference Range Interpretation Comments POCT GLU (test code = 3050697974) 78 mg/dL 70-110 Lab Interpretation (test code = Normal 69095-1) [facility] GLUCOSE (AUTOMATED)2019-08-25 18:28:00 Test Item Value Reference Range Interpretation Comments POCT GLU (test code = 2773356295) 42 mg/dL 70-110 LL Lab Interpretation (test code = Abnormal 34773-3) [facility] 18:28:00 Test Item Value Reference Range Interpretation Comments POCT GLU (test code = 8085675394) 44 mg/dL 70-110 LL Lab Interpretation (test code = Abnormal 93376-2) [facility] GLUCOSE (AUTOMATED)2019-08-25 18:28:00 Test Item Value Reference Range Interpretation Comments POCT GLU (test code = 4988372132) 77 mg/dL 70-110 Lab Interpretation (test code = Normal 77211-3) [facility]-08-25 18:28:00 Test Item Value Reference Range Interpretation Comments POCT GLU (test code = 7215656098) 110 mg/dL 70-110 Lab Interpretation (test code = Normal 91697-2) [facility] METABOLIC PANEL (NA, K, CL, CO2, GLUCOSE, BUN, CREATININE, CA)2019-08-25 10:57:00 Test Item Value Reference Range Interpretation Comments NA (test code = 136 mmol/L 135-145 4353644644) K (test code = 4.5 mmol/L 3.5-5 1342336182) CL (test code = 100 mmol/L 98-108 7518283472) CO2 TOTAL (test code = 30 mmol/L 23-31 5386189948) AGAP (test code = 2-16 7057449001) BUN (test code = 38 mg/dL 7-23 H 4890675954) GLUCOSE (test code = 89 mg/dL 70-110 3386929349) CREATININE (test code = 1.46 mg/dL 0.6-1.25 H 7673981144) CALCIUM (test code = 7.7 mg/dL 8.6-10.6 L 2442628821) eGFR Calculation mL/min/1.73m2 (Non-) (test code = 4151197526) eGFR Calculation mL/min/1.73m2 () (test code = 3922646810) JUAN LUIS (test code = JUAN LUIS) [...] tests). Lab Interpretation Abnormal (test code = 22717-7) [facility] WITH [id number] 10:46:00 Test Item Value Reference Range Interpretation Comments WBC (test code = See_Comment [Automated 3090-2) message] The sy stem which generated this [...] (test code = 34.5 fL 38.5-51.6 L 97360-0) RDW-CV (test code = 14.7 % 12.1-15.4 788-0) PLT (test code = See_Comment [Automated 907-3) message] The sy stem which generated this result transmitted reference range : 150 - 328 10*3/ ?L. The reference r christine was not used to interpret this result as normal/abnormal . MPV (test code = 11.7 fL 9.8-13 31199-5) NRBC/100 WBC (test See_Comment [Automat ed code = 0138035076) message] The system which generated this result transmitted reference range : 0.0 - 10.0 /100 WBCs. The refer ence range was not u sed to interpret th is result as normal/abnormal . NRBC x10^3 (test code <0.01 See_Comment [Auto mated = 4170868135) message] The s ystem which generated this result transmitted reference range : 10*3/?L. The reference range was not used to interpret this result as normal/abnormal . GRAN MAT (NEUT) % 63.6 % (test code = 770-8) IMM GRAN % (test code 0.30 % = 1751893805) LYMPH % (test code = 19.7 % 736-9) MONO % (test code = 12.6 % 5905-5) EOS % (test code = 3.5 % 713-8) BASO % (test code = 0.3 % 706-2) GRAN MAT x10^3(ANC) 5.60 10*3/uL 1.99-6.95 (test code = 6788072263) IMM GRAN x10^3 (test 0.03 10*3/uL 0-0.06 code = 6204952617) LYMPH x10^3 (test code 1.74 10*3/uL 1.09-3.23 = 731-0) MONO x10^3 (test code 1.11 10*3/uL 0.36-1.02 H = 742-7) EOS x10^3 (test code = 0.31 10*3/uL 0.06-0.53 711-2) BASO x10^3 (test code 0.03 10*3/uL 0.01-0.09 = 704-7) Lab Interpretation Abnormal (test code = 37400-9) [id number] 05:01:32Tip of the nasogastric tube is in [...] of the nasogastric tube is in [facility])2019-08-25 02:05:00 Test Item Value Reference Range Interpretation Comments POCT GLU (test code = 75 mg/dL 70-110 Notifi ed Provider [id number]) Lab Interpretation (test Normal code = 36708-3) [facility] GLUCOSE (AUTOMATED)2019-08-24 22:24:00 Test Item Value Reference Range Interpretation Comments POCT GLU (test code = 3656105158) 134 mg/dL 70-110 H Lab Interpretation (test code = Abnormal 15945-9) [facility] GLUCOSE (AUTOMATED)2019-08-24 18:27:00 Test Item Value Reference Range Interpretation Comments POCT GLU (test code = 6200946756) 137 mg/dL 70-110 H Lab Interpretation (test code = Abnormal 92910-3) [facility] GLUCOSE (AUTOMATED)2019-08-24 14:05:00 Test Item Value Reference Range Interpretation Comments POCT GLU (test code = 6300238221) 178 mg/dL 70-110 H Lab Interpretation (test code = Abnormal 18436-5) [facility] (NA, K, CL, CO2, GLUCOSE, BUN, CREATININE, CA)2019-08-24 12:33:00 Test Item Value Reference Range Interpretation Comments NA (test code = 133 mmol/L 135-145 L 8586288460) K (test code = 4.3 mmol/L 3.5-5 6060868540) CL (test code = 98 mmol/L 98-108 5900494913) CO2 TOTAL (test code = 28 mmol/L 23-31 6343517541) AGAP (test code = 2-16 2999755025) BUN (test code = 39 mg/dL 7-23 H 8875253640) GLUCOSE (test code = 122 mg/dL 70-110 H 4364107207) CREATININE (test code = 1.51 mg/dL 0.6-1.25 H 1955977333) CALCIUM (test code = 7.8 mg/dL 8.6-10.6 L 9924443879) eGFR Calculation mL/min/1.73m2 (Non-) (test code = 1882819027) eGFR Calculation mL/min/1.73m2 () (test code = 9579364366) JUAN LUIS (test code = JUAN LUIS) [...] tests). Lab Interpretation Abnormal (test code = 46600-1) [facility] WITH [id number] 12:27:00 Test Item Value Reference Range Interpretation [...] (test code = 34.7 fL 38.5-51.6 L 84974-0) RDW-CV (test code = 15.0 % 12.1-15.4 788-0) PLT (test code = See_Comment [Automated 777-3) message] The sy stem which generated this result transmitted reference range : 150 - 328 10*3/ ?L. The reference r christine was not used to interpret this result as normal/abnormal . MPV (test code = 11.3 fL 9.8-13 29598-2) IPF % (test code = 4.1 % 1.2-10.7 Platelet count 5797254942) measured by fluorescence method. NRBC/100 WBC (test See_Comment [Automat ed code = 9833503240) message] The system which generated this result transmitted reference range : 0.0 - 10.0 /100 WBCs. The refer ence range was not u sed to interpret th is result as normal/abnormal . NRBC x10^3 (test code <0.01 See_Comment [Auto mated = 1976744464) message] The s ystem which generated this result transmitted reference range : 10*3/?L. The reference range was not used to interpret this result as normal/abnormal . GRAN MAT (NEUT) % 71.8 % (test code = 770-8) IMM GRAN % (test code 0.40 % = 7460402680) LYMPH % (test code = 13.7 % 736-9) MONO % (test code = 11.2 % 5905-5) EOS % (test code = 2.6 % 713-8) BASO % (test code = 0.3 % 706-2) GRAN MAT x10^3(ANC) 6.76 10*3/uL 1.99-6.95 (test code = 3302202163) IMM GRAN x10^3 (test 0.04 10*3/uL 0-0.06 code = 0686579231) LYMPH x10^3 (test code 1.29 10*3/uL 1.09-3.23 = 731-0) MONO x10^3 (test code 1.05 10*3/uL 0.36-1.02 H = 742-7) EOS x10^3 (test code = 0.24 10*3/uL 0.06-0.53 711-2) BASO x10^3 (test code 0.03 10*3/uL 0.01-0.09 = 704-7) Lab Interpretation Abnormal (test code = 34926-4) [facility] GLUCOSE (AUTOMATED)2019-08-24 10:30:00 Test Item Value Reference Range Interpretation Comments POCT GLU (test code = 2344620209) 176 mg/dL 70-110 H Lab Interpretation (test code = Abnormal 02989-7) [facility] GLUCOSE (AUTOMATED)2019-08-24 05:45:00 Test Item Value Reference Range Interpretation Comments POCT GLU (test code = 2711374860) 187 mg/dL 70-110 H Lab Interpretation (test code = Abnormal 61267-8) [facility] GLUCOSE (AUTOMATED)2019-08-24 01:54:00 Test Item Value Reference Range Interpretation Comments POCT GLU (test code = 5981244305) 156 mg/dL 70-110 H Lab Interpretation (test code = Abnormal 53259-9) [facility] GLUCOSE (AUTOMATED)2019-08-23 23:09:00 Test Item Value Reference Range Interpretation Comments POCT GLU (test code = 8758543320) 110 mg/dL 70-110 Lab Interpretation (test code = Normal 45180-6) [facility] IRON BINDING [id number] 22:07:00 Test Item Value Reference Range Interpretation Comments TIBC (test code = 8186046164) 230 ug/dL 250-410 L % FE SAT (test code = 7875347322) 15 % 20-50 L Lab Interpretation (test code = Abnormal 99845-5) [facility] 21:58:00 Test Item Value Reference Range Interpretation Comments IRON (test code = 8307928392) 35 ug/dL 50-160 L Lab Interpretation (test code = Abnormal 16057-1) [facility] GLUCOSE (AUTOMATED)2019-08-23 18:08:00 Test Item Value Reference Range Interpretation Comments POCT GLU (test code = 9534234051) 78 mg/dL 70-110 Lab Interpretation (test code = Normal 02724-6) [facility] GLUCOSE (AUTOMATED)2019-08-23 14:32:00 Test Item Value Reference Range Interpretation Comments POCT GLU (test code = 2088869401) 126 mg/dL 70-110 H Lab Interpretation (test code = Abnormal 92873-4) [facility] GLUCOSE (AUTOMATED)2019-08-23 11:58:00 Test Item Value Reference Range Interpretation Comments POCT GLU (test code = 105 mg/dL 70-110 Notifi ed Provider [id number]) Lab Interpretation (test Normal code = 39934-6) [facility] [id number] 11:01:00 Test Item Value Reference Range Interpretation Comments NT-proBNP (test code 7950 pg/mL See_Comment H [Autom ated = 3392817792) message] The system which generated this result transmitted reference range : <=125. The reference range was not used to interpret this result as normal/abnormal . JUAN LUIS (test code = JUAN LUIS) Biotin has been reported to cause a negative bias, interpret results relative to patient's use of biotin. Lab Interpretation Abnormal (test code = 25336-9) [facility] METABOLIC PANEL (NA, K, CL, CO2, GLUCOSE, BUN, CREATININE, CA)2019-08-23 10:52:00 Test Item Value Reference Range Interpretation Comments NA (test code = 135 mmol/L 135-145 9311055837) K (test code = 4.5 mmol/L 3.5-5 2754285829) CL (test code = 101 mmol/L 98-108 9645950250) CO2 TOTAL (test code = 29 mmol/L 23-31 7830808709) AGAP (test code = 2-16 2413232332) BUN (test code = 36 mg/dL 7-23 H 7662581003) GLUCOSE (test code = 57 mg/dL 70-110 L 5066592466) CREATININE (test code = 1.61 mg/dL 0.6-1.25 H 8614443600) CALCIUM (test code = 7.8 mg/dL 8.6-10.6 L 5513894697) eGFR Calculation mL/min/1.73m2 (Non-) (test code = 7157271447) eGFR Calculation mL/min/1.73m2 () (test code = 9389140975) JUAN LUIS (test code = JUAN LUIS) [...] tests). Lab Interpretation Abnormal (test code = 41998-9) [facility]00 Test Item Value Reference Range Interpretation Comments MAGNESIUM (test code = 3673113083) 1.9 mg/dL 1.7-2.4 Lab Interpretation (test code = Normal 12013-7) [facility] [id number] 10:48:00 Test Item Value Reference Range Interpretation [...] (test code = 34.9 fL 38.5-51.6 L 92242-1) RDW-CV (test code = 14.8 % 12.1-15.4 788-0) PLT (test code = See_Comment [Automated 777-3) message] The sy stem which generated this result transmitted reference range : 150 - 328 10*3/ ?L. The reference r christine was not used to interpret this result as normal/abnormal . MPV (test code = 11.8 fL 9.8-13 96142-5) IPF % (test code = 3.8 % 1.2-10.7 Platelet count 8063685252) measured by fluorescence method. NRBC/100 WBC (test See_Comment [Automat ed code = 7073312203) message] The system which generated this result transmitted reference range : 0.0 - 10.0 /100 WBCs. The refer ence range was not u sed to interpret th is result as normal/abnormal . NRBC x10^3 (test code <0.01 See_Comment [Auto mated = 9678430427) message] The s ystem which generated this result transmitted reference range : 10*3/?L. The reference range was not used to interpret this result as normal/abnormal . GRAN MAT (NEUT) % 70.8 % (test code = 770-8) IMM GRAN % (test code 0.30 % = 8432801340) LYMPH % (test code = 13.9 % 736-9) MONO % (test code = 10.9 % 5905-5) EOS % (test code = 3.7 % 713-8) BASO % (test code = 0.4 % 706-2) GRAN MAT x10^3(ANC) 6.76 10*3/uL 1.99-6.95 (test code = 6066668409) IMM GRAN x10^3 (test 0.03 10*3/uL 0-0.06 code = 1227738787) LYMPH x10^3 (test code 1.33 10*3/uL 1.09-3.23 = 731-0) MONO x10^3 (test code 1.04 10*3/uL 0.36-1.02 H = 742-7) EOS x10^3 (test code = 0.35 10*3/uL 0.06-0.53 711-2) BASO x10^3 (test code 0.04 10*3/uL 0.01-0.09 = 704-7) Lab Interpretation Abnormal (test code = 84831-8) [facility] GLUCOSE (AUTOMATED)2019-08-23 06:29:00 Test Item Value Reference Range Interpretation Comments POCT GLU (test code = 116 mg/dL 70-110 H Notifi ed Provider [id number]) Lab Interpretation (test Abnormal code = 47637-4) [facility] GLUCOSE (AUTOMATED)2019-08-23 01:54:00 Test Item Value Reference Range Interpretation Comments POCT GLU (test code = 135 mg/dL 70-110 H Notifi ed Provider [id number]) Lab Interpretation (test Abnormal code = 39275-6) [facility] GLUCOSE (AUTOMATED)2019-08-22 23:32:00 Test Item Value Reference Range Interpretation Comments POCT GLU (test code = 6038716822) 109 mg/dL 70-110 Lab Interpretation (test code = Normal 68995-3) [facility]A [facility] by Britney [id number] 17:55:00 Test Item Value Reference Range Interpretation Comments MSSA Screen by PCRBritney (test code Negative Negative = 32710-3) MRSA/MSSA Positive? (test code = No No 7713325361) Lab Interpretation (test code = Normal 67804-4) [facility] GLUCOSE (AUTOMATED)2019-08-22 17:43:00 Test Item Value Reference Range Interpretation Comments POCT GLU (test code = 8184940487) 139 mg/dL 70-110 H Lab Interpretation (test code = Abnormal 19359-2) [facility] [id number] 16:53:00 Test Item Value Reference Range Interpretation Comments NT-proBNP (test code 58976 pg/mL See_Comment H [Autom ated = 0108905109) message] The system which generated this result transmitted reference range : <=125. The reference range was not used to interpret this result as normal/abnormal . JUAN LUIS (test code = JUAN LUIS) Biotin has been reported to cause a negative bias, interpret results relative to patient's use of biotin. Lab Interpretation Abnormal (test code = 29097-7) [facility] CHEST 1 [id number] 10:34:46Edema type pattern. CLINICAL HISTORY:SOB COMPARISON:None TECHNIQUE:Portable [...] zone. No pneumothorax. Possiblesmall effusions.IMPRESSIONEdema type pattern. [facility]2019-08-22 10:03:00 Test Item Value Reference Range Interpretation Comments POCT GLU (test code = 118 mg/dL 70-110 H Notifi ed Provider [id number]) Lab Interpretation (test Abnormal code = 77370-7) [facility] METABOLIC PANEL (NA, K, CL, CO2, GLUCOSE, BUN, CREATININE, CA)2019-08-22 08:20:00 Test Item Value Reference Range Interpretation Comments NA (test code = 136 mmol/L 135-145 4782185079) K (test code = 4.8 mmol/L 3.5-5 4018456215) CL (test code = 102 mmol/L 98-108 2590193669) CO2 TOTAL (test code = 30 mmol/L 23-31 4444949783) AGAP (test code = 2-16 8731040582) BUN (test code = 34 mg/dL 7-23 H 1132628261) GLUCOSE (test code = 67 mg/dL 70-110 L 3121322172) CREATININE (test code = 1.37 mg/dL 0.6-1.25 H 4757174505) CALCIUM (test code = 8.4 mg/dL 8.6-10.6 L 4834820829) eGFR Calculation mL/min/1.73m2 (Non-) (test code = 6191869937) eGFR Calculation mL/min/1.73m2 () (test code = 8766574942) JUAN LUIS (test code = JUAN LUIS) [...] tests). Lab Interpretation Abnormal (test code = 83380-5) [facility] 08:20:00 Test Item Value Reference Range Interpretation Comments MAGNESIUM (test code = 3735210017) 2.0 mg/dL 1.7-2.4 Lab Interpretation (test code = Normal 85236-6) [facility] WITH [id number] 08:11:00 Test Item Value Reference Range Interpretation Comments WBC (test code = See_Comment [Automated 7590-2) message] The sy stem which generated this result transmitted reference range : 4.20 - 10.70 10*3/?L. The reference range was not used to interpret this result as normal/abnormal . RBC (test code = See_Comment L [Automated 809-8) message] The sy stem which generated this [...] (test code = 35.3 fL 38.5-51.6 L 05904-1) RDW-CV (test code = 15.1 % 12.1-15.4 788-0) PLT (test code = See_Comment [Automated 777-3) message] The sy stem which generated this result transmitted reference range : 150 - 328 10*3/ ?L. The reference r christine was not used to interpret this result as normal/abnormal . MPV (test code = 11.5 fL 9.8-13 72776-8) IPF % (test code = 4.2 % 1.2-10.7 Platelet count 1631462758) measured by fluorescence method. NRBC/100 WBC (test See_Comment [Automat ed code = 4579763476) message] The system which generated this result transmitted reference range : 0.0 - 10.0 /100 WBCs. The refer ence range was not u sed to interpret th is result as normal/abnormal . NRBC x10^3 (test code <0.01 See_Comment [Auto mated = 5830641891) message] The s ystem which generated this result transmitted reference range : 10*3/?L. The reference range was not used to interpret this result as normal/abnormal . GRAN MAT (NEUT) % 68.5 % (test code = 770-8) IMM GRAN % (test code 0.40 % = 5149802553) LYMPH % (test code = 18.7 % 736-9) MONO % (test code = 8.8 % 5905-5) EOS % (test code = 3.0 % 713-8) BASO % (test code = 0.6 % 706-2) GRAN MAT x10^3(ANC) 5.42 10*3/uL 1.99-6.95 (test code = 9098545130) IMM GRAN x10^3 (test 0.03 10*3/uL 0-0.06 code = 8037040000) LYMPH x10^3 (test code 1.48 10*3/uL 1.09-3.23 = 731-0) MONO x10^3 (test code 0.70 10*3/uL 0.36-1.02 = 742-7) EOS x10^3 (test code = 0.24 10*3/uL 0.06-0.53 711-2) BASO x10^3 (test code 0.05 10*3/uL 0.01-0.09 = 704-7) Lab Interpretation Abnormal (test code = 52626-6) [facility] GLUCOSE (AUTOMATED)2019-08-22 06:25:00 Test Item Value Reference Range Interpretation Comments POCT GLU (test code = 253 mg/dL 70-110 H Notifi ed Provider [id number]) Lab Interpretation (test Abnormal code = 65908-8) [facility] GLUCOSE (AUTOMATED)2019-08-22 03:19:00 Test Item Value Reference Range Interpretation Comments POCT GLU (test code = 279 mg/dL 70-110 H Notifi ed Provider [id number]) Lab Interpretation (test Abnormal code = 47843-1) [facility] GLUCOSE (AUTOMATED)2019-08-21 22:45:00 Test Item Value Reference Range Interpretation Comments POCT GLU (test code = 4368193169) 231 mg/dL 70-110 H Lab Interpretation (test code = Abnormal 22809-7) [facility] GLUCOSE (AUTOMATED)2019-08-21 18:32:00 Test Item Value Reference Range Interpretation Comments POCT GLU (test code = 2370734027) 144 mg/dL 70-110 H Lab Interpretation (test code = Abnormal 80296-3) [facility] GLUCOSE (AUTOMATED)2019-08-21 13:56:00 Test Item Value Reference Range Interpretation Comments POCT GLU (test code = 9538324026) 123 mg/dL 70-110 H Lab Interpretation (test code = Abnormal 54841-2) [facility] GLUCOSE (AUTOMATED)2019-08-21 10:04:00 Test Item Value Reference Range Interpretation Comments POCT GLU (test code = 111 mg/dL 70-110 H Notifi ed Provider [id number]) Lab Interpretation (test Abnormal code = 88526-4) [facility] [id number] 08:37:00 Test Item Value Reference Range Interpretation Comments NT-proBNP (test code 43147 pg/mL See_Comment H [Autom ated = 5374881689) message] The system which generated this result transmitted reference range : <=125. The reference range was not used to interpret this result as normal/abnormal . JUAN LUIS (test code = JUAN LUIS) Biotin has been reported to cause a negative bias, interpret results relative to patient's use of biotin. Lab Interpretation Abnormal (test code = 86474-0) [facility] (NA, K, CL, CO2, GLUCOSE, BUN, CREATININE, CA)2019-08-21 08:28:00 Test Item Value Reference Range Interpretation Comments NA (test code = 136 mmol/L 135-145 9979912411) K (test code = 5.0 mmol/L 3.5-5 6794851687) CL (test code = 102 mmol/L 98-108 5228002330) CO2 TOTAL (test code = 30 mmol/L 23-31 4827375097) AGAP (test code = 2-16 5009294814) BUN (test code = 37 mg/dL 7-23 H 6594866233) GLUCOSE (test code = 88 mg/dL 70-110 9311117616) CREATININE (test code = 1.44 mg/dL 0.6-1.25 H 6118110508) CALCIUM (test code = 8.2 mg/dL 8.6-10.6 L 3270433604) eGFR Calculation mL/min/1.73m2 (Non-) (test code = 2122917166) eGFR Calculation mL/min/1.73m2 () (test code = 7636376236) JUAN LUIS (test code = JUAN LUIS) [...] tests). Lab Interpretation Abnormal (test code = 30086-5) [facility] WITH [id number] 08:17:00 Test Item Value Reference Range Interpretation Comments WBC (test code = See_Comment [Automated 2680-2) message] The sy stem which generated this result transmitted reference range : 4.20 - 10.70 10*3/?L. The reference range was not used to interpret this result as normal/abnormal . RBC (test code = See_Comment [Automated 776-8) message] The sy stem which generated this [...] (test code = 35.3 fL 38.5-51.6 L 89969-9) RDW-CV (test code = 15.2 % 12.1-15.4 788-0) PLT (test code = See_Comment [Automated 777-3) message] The sy stem which generated this result transmitted reference range : 150 - 328 10*3/ ?L. The reference r christine was not used to interpret this result as normal/abnormal . MPV (test code = 12.2 fL 9.8-13 64066-9) IPF % (test code = 4.9 % 1.2-10.7 Platelet count 9094811840) measured by fluorescence method. NRBC/100 WBC (test See_Comment [Automat ed code = 9304148406) message] The system which generated this result transmitted reference range : 0.0 - 10.0 /100 WBCs. The refer ence range was not u sed to interpret th is result as normal/abnormal . NRBC x10^3 (test code <0.01 See_Comment [Auto mated = 0111003119) message] The s ystem which generated this result transmitted reference range : 10*3/?L. The reference range was not used to interpret this result as normal/abnormal . GRAN MAT (NEUT) % 78.7 % (test code = 770-8) IMM GRAN % (test code 0.40 % = 5112232815) LYMPH % (test code = 11.4 % 736-9) MONO % (test code = 8.1 % 5905-5) EOS % (test code = 0.9 % 713-8) BASO % (test code = 0.5 % 706-2) GRAN MAT x10^3(ANC) 8.31 10*3/uL 1.99-6.95 H (test code = 0047251673) IMM GRAN x10^3 (test 0.04 10*3/uL 0-0.06 code = 9353465924) LYMPH x10^3 (test code 1.20 10*3/uL 1.09-3.23 = 731-0) MONO x10^3 (test code 0.85 10*3/uL 0.36-1.02 = 742-7) EOS x10^3 (test code = 0.09 10*3/uL 0.06-0.53 711-2) BASO x10^3 (test code 0.05 10*3/uL 0.01-0.09 = 704-7) Lab Interpretation Abnormal (test code = 98244-6) [facility] GLUCOSE (AUTOMATED)2019-08-21 05:13:00 Test Item Value Reference Range Interpretation Comments POCT GLU (test code = 4761521109) 87 mg/dL 70-110 Lab Interpretation (test code = Normal 63047-0) [facility] GLUCOSE (AUTOMATED)2019-08-21 03:29:00 Test Item Value Reference Range Interpretation Comments POCT GLU (test code = 65 mg/dL 70-110 L Notifi ed Provider [id number]) Lab Interpretation (test Abnormal code = 24787-7) [facility] GLUCOSE (AUTOMATED)2019-08-20 22:42:00 Test Item Value Reference Range Interpretation Comments POCT GLU (test code = 3476893500) 102 mg/dL 70-110 Lab Interpretation (test code = Normal 61287-5) [facility], [id number] 22:11:00 Test Item Value Reference Range Interpretation Comments VIT D 25OH (test code = <13 25-80 L 54003-0) JUAN LUIS (test code = JUAN LUIS) Deficiency: <20 ng/mLInsufficiency: 20-24 ng/mLOptimal: 25-80 ng/mL Lab Interpretation (test Abnormal code = 08066-4) [facility] GLUCOSE (AUTOMATED)2019-08-20 17:49:00 Test Item Value Reference Range Interpretation Comments POCT GLU (test code = 4152012905) 112 mg/dL 70-110 H Lab Interpretation (test code = Abnormal 80235-2) [facility] GLUCOSE (AUTOMATED)2019-08-20 14:23:00 Test Item Value Reference Range Interpretation Comments POCT GLU (test code = 9758875480) 122 mg/dL 70-110 H Lab Interpretation (test code = Abnormal 04820-7) [facility] AustinTROPONIN [id number] 11:09:00 Test Item Value Reference Range Interpretation Comments TROPONIN I (test 0.032 ng/mL See_Comment [Automated code = 6618964274) message] The system which generated this result [...] ? Lab Interpretation Normal (test code = 74827-6) [facility] [id number] 11:06:00 Test Item Value Reference Range Interpretation Comments NT-proBNP (test code 25149 pg/mL See_Comment H [Autom ated = 2198082511) message] The system which generated this result transmitted reference range : <=125. The reference range was not used to interpret this result as normal/abnormal . JUAN LUIS (test code = JUAN LUIS) Biotin has been reported to cause a negative bias, interpret results relative to patient's use of biotin. Lab Interpretation Abnormal (test code = 60018-6) [facility] AustinURIC [id number] 10:58:00 Test Item Value Reference Range Interpretation Comments URIC ACID (test code = 4873239047) 5.7 mg/dL 3.6-8 Lab Interpretation (test code = Normal 09693-5) [facility] (NA, K, CL, CO2, GLUCOSE, BUN, CREATININE, CA)2019-08-20 10:58:00 Test Item Value Reference Range Interpretation Comments NA (test code = 136 mmol/L 135-145 6258070958) K (test code = 4.0 mmol/L 3.5-5 4300031943) CL (test code = 106 mmol/L 98-108 7900812611) CO2 TOTAL (test code = 27 mmol/L 23-31 9664990620) AGAP (test code = 2-16 7240453304) BUN (test code = 35 mg/dL 7-23 H 6955262472) GLUCOSE (test code = 149 mg/dL 70-110 H 2382493032) CREATININE (test code = 1.46 mg/dL 0.6-1.25 H 9664571083) CALCIUM (test code = 8.5 mg/dL 8.6-10.6 L 1269810409) eGFR Calculation mL/min/1.73m2 (Non-) (test code = 6649343205) eGFR Calculation mL/min/1.73m2 () (test code = 4661517593) JUNA LUIS (test code = JUAN LUIS) Association [...] tests). Lab Interpretation Abnormal (test code = 04972-2) [facility] WITH [id number] 10:46:00 Test Item Value Reference Range Interpretation [...] (test code = 34.4 fL 38.5-51.6 L 38647-9) RDW-CV (test code = 15.2 % 12.1-15.4 788-0) PLT (test code = See_Comment [Automated 777-3) message] The sy stem which generated this result transmitted reference range : 150 - 328 10*3/ ?L. The reference r christine was not used to interpret this result as normal/abnormal . MPV (test code = Not Measure d 13378-6) IPF % (test code = 6.1 % 1.2-10.7 Platelet count 6158176899) measured by fluorescence method. NRBC/100 WBC (test See_Comment [Automat ed code = 4570497203) message] The system which generated this result transmitted reference range : 0.0 - 10.0 /100 WBCs. The refer ence range was not u sed to interpret th is result as normal/abnormal . NRBC x10^3 (test code <0.01 See_Comment [Auto mated = 7747165047) message] The s ystem which generated this result transmitted reference range : 10*3/?L. The reference range was not used to interpret this result as normal/abnormal . GRAN MAT (NEUT) % 66.8 % (test code = 770-8) IMM GRAN % (test code 0.30 % = 6517784905) LYMPH % (test code = 20.3 % 736-9) MONO % (test code = 9.9 % 5905-5) EOS % (test code = 2.3 % 713-8) BASO % (test code = 0.4 % 706-2) GRAN MAT x10^3(ANC) 6.15 10*3/uL 1.99-6.95 (test code = 1009339007) IMM GRAN x10^3 (test 0.03 10*3/uL 0-0.06 code = 4168095617) LYMPH x10^3 (test code 1.87 10*3/uL 1.09-3.23 = 731-0) MONO x10^3 (test code 0.91 10*3/uL 0.36-1.02 = 742-7) EOS x10^3 (test code = 0.21 10*3/uL 0.06-0.53 711-2) BASO x10^3 (test code 0.04 10*3/uL 0.01-0.09 = 704-7) Lab Interpretation Abnormal (test code = 90730-2) [facility] B12, [id number] 08:51:00 Test Item Value Reference Range Interpretation Comments VIT B12 (test code = 409 pg/mL 240-930 7731186420) JUAN LUIS (test code = JUAN LUIS) Biotin has been reported to cause a positive bias, interpret results relative to patient's use of biotin. Lab Interpretation (test Normal code = 82246-2) [facility] Austin[facility]OL[facility]2020-[facility] 08:51:00 Test Item Value Reference Range Interpretation Comments FOLATE SER (test code = 11.7 ng/mL 3-20 6889630269) Lab Interpretation (test code = Normal 35724-3) [facility] GLUCOSE (AUTOMATED)2019-08-20 05:51:00 Test Item Value Reference Range Interpretation Comments POCT GLU (test code = 5393335364) 239 mg/dL 70-110 H Lab Interpretation (test code = Abnormal 42412-9) [facility] GLUCOSE (AUTOMATED)2019-08-20 02:49:00 Test Item Value Reference Range Interpretation Comments POCT GLU (test code = 4584530301) 261 mg/dL 70-110 H Lab Interpretation (test code = Abnormal 68323-8) [facility] AustinIRO [id number] 23:44:00 Test Item Value Reference Range Interpretation Comments IRON (test code = 64 ug/dL 50-160 Slight hem olysis 7558108230) TIBC (test code = 225 ug/dL 250-410 L 0614980007) % FE SAT (test code = 28 % 20-50 9360740556) Lab Interpretation (test Abnormal code = 95551-7) [facility] AustinTroponin [id number] 23:42:00 Test Item Value Reference Range Interpretation Comments TROPONIN I (test 0.039 ng/mL See_Comment H [Automated code = 0991413841) message] The system which generated this result [...] ? Lab Interpretation Abnormal (test code = 31746-6) [facility] AustinFERRITIN [id number] 23:37:00 Test Item Value Reference Range Interpretation Comments FERRITIN (test code = 744.0 ng/mL 18-464 H 3532951985) JUAN LUIS (test code = JUAN LUIS) Biotin has been reported to cause a negative bias, interpret results relative to patient's use of biotin. Lab Interpretation (test Abnormal code = 28280-7) [facility] GLUCOSE (AUTOMATED)2019-08-19 21:51:00 Test Item Value Reference Range Interpretation Comments POCT GLU (test code = 9593840632) 235 mg/dL 70-110 H Lab Interpretation (test code = Abnormal 22819-4) [facility] GLUCOSE (AUTOMATED)2019-08-19 17:19:00 Test Item Value Reference Range Interpretation Comments POCT GLU (test code = 1310570282) 283 mg/dL 70-110 H Lab Interpretation (test code = Abnormal 50627-4) [facility] GLUCOSE (AUTOMATED)2019-08-19 13:57:00 Test Item Value Reference Range Interpretation Comments POCT GLU (test code = 6261775039) 165 mg/dL 70-110 H Lab Interpretation (test code = Abnormal 39552-0) [facility] AustinTROPONIN [id number] 11:05:00 Test Item Value Reference Range Interpretation Comments TROPONIN I (test 0.045 ng/mL See_Comment H [Automated code = 7942039542) message] The system which generated this result [...] ? Lab Interpretation Abnormal (test code = 75589-7) [facility] AustinTroponin [id number] 11:04:00 Test Item Value Reference Range Interpretation Comments TROPONIN I (test 0.046 ng/mL See_Comment H [Automated code = 5133126121) message] The system which generated this result [...] ? Lab Interpretation Abnormal (test code = 74349-3) [facility] Austin[facility] [id number] 11:02:00 Test Item Value Reference Range Interpretation Comments NT-proBNP (test code 29893 pg/mL See_Comment H [Autom ated = 8009077967) message] The system which generated this result transmitted reference range : <=125. The reference range was not used to interpret this result as normal/abnormal . JUAN LUIS (test code = JUAN LUIS) Biotin has been reported to cause a negative bias, interpret results relative to patient's use of biotin. Lab Interpretation Abnormal (test code = 66171-6) [facility] Metabolic Panel (NA, K, CL, CO2, GLUCOSE, BUN, CREATININE, CA)2019-08-19 11:00:00 Test Item Value Reference Range Interpretation Comments NA (test code = 138 mmol/L 135-145 1655736495) K (test code = 3.1 mmol/L 3.5-5 L 3915332008) CL (test code = 106 mmol/L 98-108 6231013362) CO2 TOTAL (test code = 26 mmol/L 23-31 9045391368) AGAP (test code = 2-16 6916081100) BUN (test code = 31 mg/dL 7-23 H 2065192090) GLUCOSE (test code = 61 mg/dL 70-110 L 8675755098) CREATININE (test code = 1.28 mg/dL 0.6-1.25 H 5907902166) CALCIUM (test code = 9.2 mg/dL 8.6-10.6 7633251103) eGFR Calculation mL/min/1.73m2 (Non-) (test code = 8302031821) eGFR Calculation mL/min/1.73m2 () (test code = 8864230744) JUAN LUIS (test code = JUAN LUIS) [...] tests). Lab Interpretation Abnormal (test code = 33440-8) [facility] [id number] 10:53:00 Test Item Value Reference Range Interpretation Comments URIC ACID (test code = 1220737178) 5.3 mg/dL 3.6-8 Lab Interpretation (test code = Normal 96582-6) [facility] AustinMAGNESIUM2020-02-05 10:53:00 Test Item Value Reference Range Interpretation Comments MAGNESIUM (test code = 8130786431) 2.3 mg/dL 1.7-2.4 Lab Interpretation (test code = Normal 97498-8) [facility] AustinPHOSPHORUS2020-02-05 10:53:00 Test Item Value Reference Range Interpretation Comments PHOSPHORUS (test code = 2754882765) 3.3 mg/dL 2.5-5 Lab Interpretation (test code = Normal 63900-5) [facility] AustinCB WITH [id number] 10:30:00 Test Item Value Reference Range Interpretation Comments WBC (test code = See_Comment H [Automated 2290-2) message] The sy stem which generated this result transmitted reference range : 4.20 - 10.70 10*3/?L. The reference range was not used to interpret this result as normal/abnormal . RBC (test code = See_Comment [Automated 609-8) message] The sy stem which generated this [...] (test code = 34.7 fL 38.5-51.6 L 25202-4) RDW-CV (test code = 15.2 % 12.1-15.4 788-0) PLT (test code = See_Comment [Automated 777-3) message] The sy stem which generated this result transmitted reference range : 150 - 328 10*3/ ?L. The reference r christine was not used to interpret this result as normal/abnormal . MPV (test code = Not Measure d 25065-0) IPF % (test code = 6.8 % 1.2-10.7 Platelet count 8607973406) measured by fluorescence method. NRBC/100 WBC (test See_Comment [Automat ed code = 9540420378) message] The system which generated this result transmitted reference range : 0.0 - 10.0 /100 WBCs. The refer ence range was not u sed to interpret th is result as normal/abnormal . NRBC x10^3 (test code <0.01 See_Comment [Auto mated = 1978322079) message] The s ystem which generated this result transmitted reference range : 10*3/?L. The reference range was not used to interpret this result as normal/abnormal . GRAN MAT (NEUT) % 60.5 % (test code = 770-8) IMM GRAN % (test code 0.30 % = 4174850096) LYMPH % (test code = 26.2 % 736-9) MONO % (test code = 9.8 % 5905-5) EOS % (test code = 2.6 % 713-8) BASO % (test code = 0.6 % 706-2) GRAN MAT x10^3(ANC) 6.61 10*3/uL 1.99-6.95 (test code = 7742607799) IMM GRAN x10^3 (test 0.03 10*3/uL 0-0.06 code = 6821294491) LYMPH x10^3 (test code 2.86 10*3/uL 1.09-3.23 = 731-0) MONO x10^3 (test code 1.07 10*3/uL 0.36-1.02 H = 742-7) EOS x10^3 (test code = 0.28 10*3/uL 0.06-0.53 711-2) BASO x10^3 (test code 0.07 10*3/uL 0.01-0.09 = 704-7) Lab Interpretation Abnormal (test code = 96438-1) [facility] GLUCOSE (AUTOMATED)2019-08-19 10:02:00 Test Item Value Reference Range Interpretation Comments POCT GLU (test code = 9322912001) 81 mg/dL 70-110 Lab Interpretation (test code = Normal 56580-1) [facility] GLUCOSE (AUTOMATED)2019-08-19 04:46:00 Test Item Value Reference Range Interpretation Comments POCT GLU (test code = 0100432243) 325 mg/dL 70-110 H Lab Interpretation (test code = Abnormal 77537-7) [id number] 04:45:00 Test Item Value Reference Range Interpretation Comments URIC ACID (test code = 0289170079) 5.2 mg/dL 3.6-8 Lab Interpretation (test code = Normal 65407-4) [facility] [id number] 04:08:00 Test Item Value Reference Range Interpretation Comments TROPONIN I (test 0.026 ng/mL See_Comment [Automated code = 6005373350) message] The system which generated this result [...] ? Lab Interpretation Normal (test code = 11075-0) [facility] (Total Cholesterol, Triglycerides, HDL)2019-08-19 03:55:00 Test Item Value Reference Range Interpretation Comments CHOL (test code = 196 mg/dL 120-200 9181166955) HDL (test code = 36 mg/dL >40 L 7642333820) HDLC RATIO (test code = See_Comment H [Au tomated message] 9730307623) The system [employer] generated this result transmit tennille reference range : <=5.0. The refe rence range was not u sed to interpret th is result as normal/abnormal . TRIG (test code = 131 mg/dL 30-170 1586284967) LDL CHOL (test code = 134 mg/dL See_Comment [Auto mated message] 33127-1) The system [employer] generated this result transmit tennille reference range : <=160. The refe rence range was not u sed to interpret th is result as normal/abnormal . VLDL (test code = 26 mg/dL 5-60 8439100239) Lab Interpretation (test Abnormal code = 96049-1) [facility]2019-08-19 01:40:00 Test Item Value Reference Range Interpretation Comments POCT GLU (test code = 2590313562) 381 mg/dL 70-110 H Lab Interpretation (test code = Abnormal 10802-4) [facility] (TSH)2019-08-19 00:12:00 Test Item Value Reference Range Interpretation Comments TSH (test code = See_Comment Biotin has been 9384826976) reported to cau se a negative bias, interpret resul ts relative to carla centeno's use of biotin. [Automated mess age] The system [employer] generated this result transmitted ref erence range: 0.45 - 4 .70 mIU/L. The refe rence range was not u sed to interpret this result as normal/abnor mal. Lab Interpretation (test Normal code = 92141-7) [facility] Hem[facility] (A1C)2019-08-19 00:11:00 Test Item Value Reference [...] Indicated Lab Interpretation Abnormal (test code = 26634-5) [facility] (Total Cholesterol, Triglycerides, HDL) - [id number] 23:40:00 Test Item Value Reference Range Interpretation Comments CHOL (test code = 199 mg/dL 120-200 7294412382) HDL (test code = 36 mg/dL >40 L 5207726763) HDLC RATIO (test code = See_Comment H [Au tomated message] 7521880875) The system [employer] generated this result transmit tennille reference range : <=5.0. The refe rence range was not u sed to interpret th is result as normal/abnormal . TRIG (test code = 146 mg/dL 30-170 0919571126) LDL CHOL (test code = 134 mg/dL See_Comment [Auto mated message] 84585-2) The system [employer] generated this result transmit tennille reference range : <=160. The refe rence range was not u sed to interpret th is result as normal/abnormal . VLDL (test code = 29 mg/dL 5-60 8083794619) Lab Interpretation (test Abnormal code = 86082-8) [facility]2019-08-18 23:33:00 Test Item Value Reference Range Interpretation Comments POCT GLU (test code = 3368613382) 424 mg/dL 70-110 H Lab Interpretation (test code = Abnormal 28725-0) [facility] Austin[facility]MIN[facility] [id number] 21:57:00 Test Item Value Reference Range Interpretation Comments NT-proBNP (test code 06894 pg/mL See_Comment H [Autom ated = 4084827025) message] The system which generated this result transmitted reference range : <=125. The reference range was not used to interpret this result as normal/abnormal . JUAN LUIS (test code = JUAN LUIS) Biotin has been reported to cause a negative bias, interpret results relative to patient's use of biotin. Lab Interpretation Abnormal (test code = 01765-1) [facility] 21:26:00 Test Item Value Reference Range Interpretation Comments APTT Patient (test See_Comment [Automat ed code = 3173-2) message] The system which generated this result transmitted reference range : 23 - 38 Seconds . The reference range was not used to interpr et this result as normal/abnormal . JUAN LUIS (test code = JUAN LUIS) The [facility] patient population mean normal value for aPTT is 30 seconds. Lab Interpretation Normal (test code = 53604-9) [facility] AustinPROTHROMBIN TIME / [id number] 21:24:00 Test Item Value Reference Range Interpretation [...] tions. Lab Interpretation (test Normal code = 50319-2) [facility] [id number] 21:14:00 Test Item Value Reference Range Interpretation Comments TROPONIN I (test 0.023 ng/mL See_Comment [Automated code = 6363702132) message] The system which generated this result [...] ? Lab Interpretation Normal (test code = 35983-9) [facility] 2 [id number] 21:02:07HISTORY: ?Chest pain. TECHNIQUE: PA and lateral views of the chest are obtained. [facility]2017 [facility]. FINDINGS: Mild cardiomegaly noted with mild bilateral pulmonary edema,congestion/atelectatic changes in the lower lungs with small bilateralpleural effusion. [facility], Radiant Results Inft User - 08/18/2019 3:03 PM CSTHISTORY: Chest pain.TECHNIQUE: PA and lateral views of the chest are obtained. Comparison ismade with 10/15/2017 study.FINDINGS: Mild cardiomegaly noted with mild bilateral pulmonary edema,congestion/atelectatic changes in the lower lungs with small bilateralpleural effusion.[facility] [place] [place]. METABOLIC PANEL (64002)2019-08-18 21:02:00 Test Item Value Reference Range Interpretation Comments NA (test code = 134 mmol/L 135-145 L 6770271899) K (test code = 3.8 mmol/L 3.5-5 3745168675) CL (test code = 103 mmol/L 98-108 4016296994) CO2 TOTAL (test code = 25 mmol/L 23-31 2293409777) AGAP (test code = 2-16 0976367771) BUN (test code = 29 mg/dL 7-23 H 7997991591) GLUCOSE (test code = 384 mg/dL 70-110 H 8054862650) CREATININE (test code = 1.14 mg/dL 0.6-1.25 8400555624) TOTAL BILI (test code = 0.3 mg/dL 0.1-1.8 9903302844) CALCIUM (test code = 8.7 mg/dL 8.6-10.6 2207007720) T PROTEIN (test code = 6.1 g/dL 6.3-8.2 L 8018518385) ALBUMIN (test code = 3.3 g/dL 3.5-5 L 3362403064) ALK PHOS (test code = 84 U/L 34-122 5022781542) ALTv (test code = 11 U/L 5-50 1742-6) AST(SGOT) (test code = 18 U/L 13-40 9653540994) eGFR Calculation mL/min/1.73m2 (Non-) (test code = 2479864890) eGFR Calculation mL/min/1.73m2 () (test code = 3027195879) JUAN LUIS (test code = JUAN LUIS) [...] tests). Lab Interpretation Abnormal (test code = 54725-5) [facility] AustinLIP[facility], [id number] 21:02:00 Test Item Value Reference Range Interpretation Comments LIPASE (test code = 8083187182) 82 U/L 0-220 Lab Interpretation (test code = Normal 17070-4) [facility] AustinCBC WITH [id number] 21:00:00 Test Item Value Reference Range Interpretation Comments WBC (test code = See_Comment [Automated 6690-2) message] The sy stem which generated this result transmitted reference range : 4.20 - 10.70 10*3/?L. The reference range was not used to interpret this result as normal/abnormal . RBC (test code = See_Comment [Automated 529-8) message] The sy stem which generated this [...] (test code = 35.4 fL 38.5-51.6 L 82150-4) RDW-CV (test code = 15.3 % 12.1-15.4 788-0) PLT (test code = See_Comment [Automated 777-3) message] The sy stem which generated this result transmitted reference range : 150 - 328 10*3/ ?L. The reference r christine was not used to interpret this result as normal/abnormal . MPV (test code = Not Measure d 84797-6) NRBC/100 WBC (test See_Comment [Automat ed code = 7779717986) message] The system which generated this result transmitted reference range : 0.0 - 10.0 /100 WBCs. The refer ence range was not u sed to interpret th is result as normal/abnormal . NRBC x10^3 (test code <0.01 See_Comment [Auto mated = 4367224037) message] The s ystem which generated this result transmitted reference range : 10*3/?L. The reference range was not used to interpret this result as normal/abnormal . GRAN MAT (NEUT) % 72.4 % (test code = 770-8) IMM GRAN % (test code 0.40 % = 5403117954) LYMPH % (test code = 16.5 % 736-9) MONO % (test code = 7.6 % 5905-5) EOS % (test code = 2.6 % 713-8) BASO % (test code = 0.5 % 706-2) GRAN MAT x10^3(ANC) 6.03 10*3/uL 1.99-6.95 (test code = 7223980421) IMM GRAN x10^3 (test 0.03 10*3/uL 0-0.06 code = 5755334376) LYMPH x10^3 (test code 1.37 10*3/uL 1.09-3.23 = 731-0) MONO x10^3 (test code 0.63 10*3/uL 0.36-1.02 = 742-7) EOS x10^3 (test code = 0.22 10*3/uL 0.06-0.53 711-2) BASO x10^3 (test code 0.04 10*3/uL 0.01-0.09 = 704-7) Lab Interpretation Abnormal (test code = 75048-3) [facility]"
[2021-08-24 11:46] LABS: ALT/SGPT 46 U/L (12-78); AST/SGOT 28 U/L (15-37); Albumin 2.6 g/dL (3.4-5.0); Alkaline Phosphatase 93 U/L (45-117); Amylase 41 U/L (25-115); BUN Blood Urea Nitrogen 56 mg/dL (7-18); Bicarbonate 26 mmol/L (21-32); Bilirubin Direct 0.2 mg/dL (0-0.2); Bilirubin Total 0.5 mg/dL (0.2-1.0); Glucose Level 91 mg/dL (74-106); Lipase 69 U/L (73-393); Potassium 4.4 mmol/L (3.5-5.1); Protein, Total 6.4 g/dL (6.4-8.2); Sodium Level 143 mmol/L (136-145)
--- NOTE | 2021-08-24 12:24 | RAD REPORT ---
EXAM DESCRIPTION: RAD - Chest Single View - 08/24/2021 11:52 am CLINICAL HISTORY: ALTERED MENTAL STATUS COMPARISON: Chest Single View dated 07/08/2021; Chest Single View dated 07/07/2021; Chest Single Vie w dated 06/10/2021; Chest Single View dated 06/01/2021 FINDINGS: Lines: None. Lungs: Widespread pulmonary opacities. Pleural: Effusions difficult to exclude. Cardiac: Cardiomegaly. Sternotomy. Bones: No acute fractures. Other: IMPRESSION: Worsened airspace disease bilaterally concerning for pulmonary edema possibly with layer ing pleural effusions. Pneumonia cannot be excluded radiographically.
--- NOTE | 2021-08-24 12:43 | EDPHYS ---
Physician Documentation [facility] Name: Mumtaz Anderson Age: 66 yrs Sex: Male : 1955 Arrival Date: 08/24/2021 Time: 10:58 Bed 4 Private MD: ED Physician Mary Grace Rose HPI: 08/24 11:08 This 66 yrs old Male presents to ER via Unassigned with complaints of UTI symptoms. sp3 11:08 66-year-old male with extensive past medical history which includes CAD, hypertension, sp3 diabetes, chronic indwelling Holcomb catheter secondary to back injury and limited mobility, presents via EMS for chief complaint "Holcomb catheter problem and UTI". Patient has had an indwelling Holcomb for several years and has had an issue with chronic urinary tract infections. Family also reports some mild confusion but per EMS he has been alert and oriented x4 for them without any seizure activity or other signs of TIA/stroke. On ROS, patient denies headache, neck pain, chest pain, shortness of breath, URI symptoms, abdominal pain, nausea, vomiting, diarrhea, rash, syncope, focal neuro deficits, or any other findings at this time.. Historical: - Allergies: 11:10 anextuss; ss7 11:10 Latex, Natural Rubber; ss7 11:10 spironolactone; ss7 - PMHx: 11:10 Anemia; COPD; Myocardial infarction; Diabetes - IDDM; Pneumonia; Hypertension; ss7 Hypercholesterolemia; Cerebrovascular accident; Seizures; kidney disease; CAD; CHF; Parkinsons; - PSHx: 11:10 Coronary artery bypass graft; hip; PEG tube; knee; ss7 - Immunization history:: Client reports receiving the 2nd dose of the Covid vaccine. - Social history:: Smoking status: Patient/guardian denies using tobacco, the patient reports quitting approximately 2 years ago. ROS: 11:09 Constitutional: Negative for fever, chills, and weight loss, Eyes: Negative for injury, sp3 pain, redness, and discharge, ENT: Negative for injury, pain, and discharge, Neck: Negative for injury, pain, and swelling, Cardiovascular: Negative for chest pain, palpitations, and edema, Respiratory: Negative for shortness of breath, cough, wheezing, and pleuritic chest pain, Abdomen/GI: Negative for abdominal pain, nausea, vomiting, diarrhea, and constipation, MS/Extremity: Negative for injury and deformity, Skin: Negative for injury, rash, and discoloration. 11:09 All other systems are negative. Exam: 11:10 Constitutional: This is a well developed, well nourished patient who is awake, alert, sp3 and in no acute distress. Head/Face: Normocephalic, atraumatic. Eyes: Pupils equal round and reactive to light, extra-ocular motions intact. Lids and lashes normal. Conjunctiva and sclera are non-icteric and not injected. Cornea within normal limits. Periorbital areas with no swelling, redness, or edema. ENT: Nares patent. No nasal discharge, no septal abnormalities noted. External auditory canals are clear. Oropharynx with no redness, swelling, or masses, exudates, or evidence of obstruction, uvula midline. Mucous membranes moist. Neck: Trachea midline, no thyromegaly or masses palpated, and no cervical lymphadenopathy. Supple, full range of motion without nuchal rigidity, or vertebral point tenderness. No Meningismus. Chest/axilla: Normal chest wall appearance and motion. Nontender with no deformity. No lesions are appreciated. Cardiovascular: Regular rate and rhythm with a normal S1 and S2. No gallops, murmurs, or rubs. Normal PMI, no JVD. No pulse deficits. Respiratory: Lungs have equal breath sounds bilaterally, clear to auscultation and percussion. No rales, rhonchi or wheezes noted. No increased work of breathing, no retractions or nasal flaring. Abdomen/GI: Soft, non-tender, with normal bowel sounds. No distension or tympany. No guarding or rebound. No evidence of tenderness throughout. MS/ Extremity: Pulses equal, no cyanosis. Neurovascular intact. Full, normal range of motion. Neuro: Awake and alert, GCS 15, oriented to person, place, time, and situation. Cranial nerves II-XII grossly intact. Motor strength 5/5 in all extremities. Sensory grossly intact. Cerebellar exam normal. Normal gait. Psych: Awake, alert, with orientation to person, place and time. Behavior, mood, and affect are within normal limits. 11:10 : Indwelling Holcomb is present. Sediment is present in the catheter. Will change catheter out.. 11:44 ECG was reviewed by the Attending Physician. Straits normal sinus rhythm at 66 bpm with sp3 first-degree AV block of AL interval 242, incomplete left bundle, nonspecific diffuse ST/T changes without evidence of acute ischemia. Vital Signs: 11:05 BP 156 / 70; Pulse 72; Resp 16; Temp 99.5; Pulse Ox 99% ; Weight 63.5 kg; Height 6 ft. ss7 0 in. (182.88 cm); Pain 0/10; 12:00 BP 154 / 64; Pulse 64; Resp 18; Pulse Ox 97% on R/A; ss7 13:08 BP 169 / 61; Pulse 67; Resp 16; Pulse Ox 99% ; ll1 14:30 BP 159 / 66; Pulse 72; Resp 18; Pulse Ox 99% ; ss7 14:50 Temp 99.1; ss7 15:53 BP 158 / 65; Pulse 66; Resp 18; Pulse Ox 98% ; Pain 0/10; ss7 11:05 Body Mass Index 18.99 (63.50 kg, 182.88 cm) ss7 MDM: 11:10 Data reviewed: vital signs, nurses notes. ED course: 66-year-old male with reported sp3 Holcomb catheter problem. Will assess patient with laboratory values, urinalysis, and change Holcomb catheter. Disposition to be based on work-up and patient course. At this time I am not highly suspicious for sepsis, septic shock, pyelonephritis, intra-abdominal pathology including obstruction and peritonitis, ACS, vascular compromise including thoracic aortic dissection and AAA, stroke or CVA, or any other critical findings at this time.. 11:12 Patient medically screened. sp3 08/24 11:02 Order name: Amylase, Serum sp3 08/24 11:02 Order name: Basic Metabolic Panel sp3 08/24 11:02 Order name: Blood Culture Adult (2) sp3 08/24 11:02 Order name: CBC with Diff; Complete Time: 12:27 sp3 08/24 11:02 Order name: LFT's sp3 08/24 11:02 Order name: Lactate; Complete Time: 12:27 sp3 08/24 11:02 Order name: Lipase sp3 08/24 11:02 Order name: Protime (+inr); Complete Time: 12:27 sp3 08/24 11:02 Order name: Ptt, Activated; Complete Time: 12:27 sp3 08/24 11:02 Order name: Troponin HS sp3 08/24 11:02 Order name: Urine Microscopic Only; Complete Time: 12:48 sp3 08/24 11:02 Order name: Amylase EDOK 08/24 11:56 Order name: Glucose, Ancillary Testing; Complete Time: 12:27 EDMS 08/24 12:42 Order name: PRBC sp3 08/24 12:42 Order name: Type And Screen sp3 08/24 12:43 Order name: Packed RBC Leukored EDOK 08/24 12:43 Order name: ABO/RH typing EDMS 08/24 12:43 Order name: Antibody Screen EDMS 08/24 12:43 Order name: Type and Screen EDMS 08/24 12:46 Order name: COVID-19 SARS RT PCR (Document "Date of Onset" if Symptomatic) bp 08/24 12:47 Order name: Urine Culture EDOK 08/24 12:52 Order name: Blood Culture [facility] 08/24 12:54 Order name: Packed RBC Leukored Irrad EDOK 08/24 12:54 Order name: Hematocrit EDOK 08/24 12:54 Order name: Hemoglobin EDOK 08/24 12:54 Order name: CBC with Automated Diff EDOK 08/24 12:54 Order name: CBC with Automated Diff EDMS 08/24 12:54 Order name: CBC with Automated Diff EDMS 08/24 12:54 Order name: CBC with Automated Diff EDMS 08/24 11:02 Order name: Accucheck; Complete Time: 11:28 3 08/24 11:02 Order name: Cardiac monitoring; Complete Time: 11:18 3 08/24 11:02 Order name: EKG - Nurse/Tech; Complete Time: 11:29 sp3 08/24 11:02 Order name: IV Saline Lock - Large Bore; Complete Time: 11:18 sp3 08/24 11:02 Order name: Labs collected and sent; Complete Time: 11:47 3 08/24 11:02 Order name: O2 Per Protocol; Complete Time: 11:18 sp3 08/24 11:02 Order name: O2 Sat Monitoring; Complete Time: 11:18 sp3 08/24 11:02 Order name: Urine Dipstick-Ancillary (obtain specimen); Complete Time: 12:20 3 08/24 11:30 Order name: Chest Single View; Complete Time: 12:27 EDOK 08/24 12:54 Order name: Comprehensive Metabolic Panel EDOK 08/24 12:54 Order name: Comprehensive Metabolic Panel EDOK 08/24 12:54 Order name: Comprehensive Metabolic Panel EDOK 08/24 12:54 Order name: Comprehensive Metabolic Panel EDOK 08/24 12:54 Order name: ABO/RH typing EDOK 08/24 12:54 Order name: Antibody Screen EDOK Administered Medications: 11:30 Drug: NS 0.9% (30 ml/kg) 30 ml/kg Route: IV; Rate: bolus; Site: left antecubital; lr4 11:40 Drug: NS 0.9% (30 ml/kg) 30 ml/kg Route: IV; Rate: bolus; Site: left antecubital; lr4 13:37 Follow up: Response: No adverse reaction; IV Status: Completed infusion; IV Intake: ll1 2000ml 12:41 CANCELLED (Change in plann): Zosyn (piperacillin-tazobactam) 3.375 grams IVPB once over sp3 60 mins; (mix in NS 100 mL) 12:55 Drug: LevaQUIN (levofloxacin) 500 mg Volume: 100 ml; Route: IVPB; Infused Over: 60 ll1 mins; Site: left antecubital; 13:55 Follow up: Response: No adverse reaction; IV Status: Completed infusion; IV Intake: ll1 100ml Disposition Summary: 08/24/21 12:43 Hospitalization Ordered Hospitalization Status: Inpatient Admission sp3 Provider: Antonio Tobias sp3 Location: Telemetry/[facility] [place] (Inpatient) sp3 Condition: Stable sp3 Problem: an acute exacerbation sp3 Symptoms: are unchanged sp3 Bed/Room Type: Standard sp3 Room Assignment: 221(08/24/21 14:46) dw Diagnosis - UTI/ Urinary tract infection, site not specified sp3 - Anemia, unspecified sp3 Forms: - Medication Reconciliation Form sp3 - SBAR form sp3 Signatures: Dispatcher [employer] Marcia Harper RN RN Homer Rangel PA PA cp Lewis, Lynsay, RN RN ll1 Mary Grace Rose MD MD sp3 Sena Richardson RN RN ss7 Aida Floyd RN RN lr4 Corrections: (The following items were deleted from the chart) 11:31 11:02 Chest Single View+RAD.RAD.BRZ ordered. EDMS EDMS 12:41 12:28 Zosyn (piperacillin-tazobactam) 3.375 grams IVPB once over 60 mins; (mix in NS sp3 100 mL) ordered. sp3 12:52 12:52 Type and Screen ordered. EDMS EDMS 14:46 12:43 sp3 dw
--- NOTE | 2021-08-24 12:43 | ER ---
Nurse's Notes [facility] Name: Mumtaz Anderson Age: 66 yrs Sex: Male : 1955 Arrival Date: 08/24/2021 Time: 10:58 Bed 4 Private MD: Diagnosis: UTI/ Urinary tract infection, site not specified;Anemia, unspecified Presentation: 08/24 11:05 Chief complaint: Spouse and/or significant other states: c/o uti s/sx. Pt is bedridden ss7 x 2 years due to hip and back injuries. Currently undercare of oncology for unknown origin of bleeding which requires frequent blood transfusions. Coronavirus screen: Client denies travel out of the [place] in the last 14 days. At this time, the client does not indicate any symptoms associated with coronavirus-19. Ebola Screen: No symptoms or risks identified at this time. Initial Sepsis Screen: Does the patient meet any 2 criteria? No. Patient's initial sepsis screen is negative. Does the patient have a suspected source of infection? Yes: Dysuria/Frequency/Urgency/UTI. Risk Assessment: Do you want to hurt yourself or someone else? Patient reports no desire to harm self or others. Onset of symptoms is unknown. 11:05 Method Of Arrival: EMS ss7 11:05 Acuity: VIDAL 3 ss7 Triage Assessment: 11:15 General: Appears in no apparent distress. Behavior is calm, cooperative, appropriate ss7 for age. 14:56 Pain: Denies pain. ss7 Historical: - Allergies: 11:10 anextuss; ss7 11:10 Latex, Natural Rubber; ss7 11:10 spironolactone; ss7 - PMHx: 11:10 Anemia; COPD; Myocardial infarction; Diabetes - IDDM; Pneumonia; Hypertension; ss7 Hypercholesterolemia; Cerebrovascular accident; Seizures; kidney disease; CAD; CHF; Parkinsons; - PSHx: 11:10 Coronary artery bypass graft; hip; PEG tube; knee; ss7 - Immunization history:: Client reports receiving the 2nd dose of the Covid vaccine. - Social history:: Smoking status: Patient/guardian denies using tobacco, the patient reports quitting approximately 2 years ago. Screenin:53 Abuse screen: Denies threats or abuse. Nutritional screening: GI TUBE. Tuberculosis ss7 screening: No symptoms or risk factors identified. Fall Risk IV access (20 points). Gait- Normal/Bed Rest/Wheelchair (0 pts). Assessment: 11:15 Cardiovascular: No deficits noted. Respiratory: No deficits noted. : Reports ss7 incontinence, sediment to indwelling hernandez from home. Musculoskeletal: Reports Denies Parent/caregiver report the patient having hx of bedridden to due hip and back injury. Pt is non ambulatory. Transported from home on a specialized mattress. 11:43 Reassessment: Dr. Rose notified of critical lab values: Hgb 6.3 and Hct 19.7. ss 14:57 Reassessment: Attempt to call report to Room 221. Nurse currently at lunch. . ss7 15:54 Reassessment: Report called to ANDRADE Loving. Informed of oncology lab work orders being ss7 added and to be drawn prior to labs being transfused with PRBCs.. Vital Signs: 11:05 BP 156 / 70; Pulse 72; Resp 16; Temp 99.5; Pulse Ox 99% ; Weight 63.5 kg; Height 6 ft. ss7 0 in. (182.88 cm); Pain 0/10; 12:00 BP 154 / 64; Pulse 64; Resp 18; Pulse Ox 97% on R/A; ss7 13:08 BP 169 / 61; Pulse 67; Resp 16; Pulse Ox 99% ; ll1 14:30 BP 159 / 66; Pulse 72; Resp 18; Pulse Ox 99% ; ss7 14:50 Temp 99.1; ss7 15:53 BP 158 / 65; Pulse 66; Resp 18; Pulse Ox 98% ; Pain 0/10; ss7 11:05 Body Mass Index 18.99 (63.50 kg, 182.88 cm) ss7 ED Course: 10:58 Patient arrived in ED. em1 11:00 Mary Grace Rose MD is Attending Physician. sp3 11:05 Inserted saline lock: 20 gauge in left antecubital area, using aseptic technique. lr4 11:10 Triage completed. ss7 11:20 Venkat Richey RN is Primary Nurse. ll1 11:52 Chest Single View In Process Unspecified. EDMS 12:20 Amylase, Serum Sent. lr4 12:42 Antonio Tobias MD is Hospitalizing Provider. sp3 14:54 Arm band placed on left wrist. EKG completed in triage. Results shown to MD. ss7 14:55 No provider procedures requiring assistance completed. Patient admitted, IV remains in ss7 place. 14:56 Patient has correct armband on for positive identification. Bed in low position. Call 7 light in reach. Side rails up X2. Adult w/ patient. environmental monitoring technician on. Pulse ox on. NIBP on. Warm blanket given. Administered Medications: 11:30 Drug: NS 0.9% (30 ml/kg) 30 ml/kg Route: IV; Rate: bolus; Site: left antecubital; lr4 11:40 Drug: NS 0.9% (30 ml/kg) 30 ml/kg Route: IV; Rate: bolus; Site: left antecubital; lr4 13:37 Follow up: Response: No adverse reaction; IV Status: Completed infusion; IV Intake: ll1 2000ml 12:41 CANCELLED (Change in plann): Zosyn (piperacillin-tazobactam) 3.375 grams IVPB once over sp3 60 mins; (mix in NS 100 mL) 12:55 Drug: LevaQUIN (levofloxacin) 500 mg Volume: 100 ml; Route: IVPB; Infused Over: 60 ll1 mins; Site: left antecubital; 13:55 Follow up: Response: No adverse reaction; IV Status: Completed infusion; IV Intake: ll1 100ml Intake: 13:37 IV: 2000ml; Total: 2000ml. ll1 13:55 IV: 100ml; Total: 2100ml. ll1 Outcome: 12:43 Decision to Hospitalize by Provider. sp3 14:55 Admitted to Tele accompanied by [facility], via stretcher, room 221, with chart. ss7 14:55 Condition: stable 15:57 Admitted to Tele Report called to ANDRADE Loving ss7 16:10 Patient left the ED. 7 Signatures: Dispatcher [employer] EDMS Wai Brian em1 Marilyn Cunningham RN RN ss Venkat Richey RN RN ll1 Mary Grace Rose MD MD sp3 Sena Richardson RN RN ss7 Aida Floyd, RN RN lr4 Corrections: (The following items were deleted from the chart) 14:55 14:54 Antipyretics given from triage as ordered by an ER provider. 7 ss7
[2021-08-24 12:46] LABS: Urine Bacteria 20-50 /HPF (NONE SEEN); Urine Mucus 1+ /HPF (NONE SEEN); Urine Yeast PRESENT (NONE SEEN); Urine Yeast with Hyphae PRESENT
[2021-08-24] MEDS ORDERED: Levofloxacin500mg IV 500 MG/100 ML BAG IV ONE (12:49)
[2021-08-24] MEDS ORDERED: ONDANSETRON 4 MG (ODT) TAB FT PRN (12:54)
[2021-08-24] MEDS ORDERED: TRAZODONE 150 MG TAB PO PRN (12:57)
[2021-08-24] MEDS: Levofloxacin500mg IV 500 MG/100 ML BAG IV SCH (13:00)
--- NOTE | 2021-08-24 16:54 | P.HP ---
Certification for Inpatient Patient admitted to: Inpatient With expected LOS: >2 Midnights Patient will require the following post-hospital care: Home Health Services Practitioner: I am a practitioner with admitting privileges, knowledge of patient current condition, hospital course, and medical plan of care. Services: Services provided to patient in accordance with Admission requirements found in Title 42 Section 412.3 of the Code of Federal Regulations Patient History Date of Service: 08/24/21 Primary Care Provider: Jatinder Reason for admission: chronic History of Present Illness: Patient is a chronic anemic patient. The patient recent hb was 6.1 as an outpatient. We called him and home health contacted him to come to the ER yesterday. However the refused per the home health. Stated she would bring him today. was found to have a uti and pneumonia in the ER. Was admitted for transfusion. The patient had his hernandez placed last night Allergies spironolactone Adverse Reaction (Verified 04/02/21 23:03) Anaphylaxis nexen Adverse Reaction (Uncoded 02/08/21 23:48) hallucination Home medications list reviewed: Yes Home Medications: Aspirin [Adult Aspirin Regimen] 81 mg FT BEDTIME 06/04/20 Atorvastatin Calcium [Lipitor] 80 mg FT BEDTIME 06/04/20 Amlodipine [Norvasc*] 10 mg FT DAILY 07/16/20 Clopidogrel Bisulfate [Plavix*] 75 mg FT DAILY 07/16/20 Escitalopram [Lexapro*] 40 mg FT DAILY 07/16/20 Gabapentin 300 mg FT BID 07/16/20 Doxazosin [Cardura*] 2 mg FT BEDTIME 30 Days #30 tab 12/08/20 Ascorbic Acid [Vitamin C] 2,000 mg FT BID 12/16/20 Sucralfate [Carafate] 100 mg FT SEECOM 12/16/20 Trazodone HCl 150 tab FT BEDTIME 12/16/20 Furosemide 20 mg PO BID 04/02/21 Insulin -Regular Human [Novolin -R*] 100 units SQ ACHS 04/02/21 Ferrous Sulfate [Ferrous Sulfate Elixir*] 220 mg FT BID 06/10/21 Nut.tx.impaired Renal Fxn,Soy [Nepro Carb Steady] 360 mg FT QID 06/10/21 Ondansetron [Ondansetron Odt] 4 mg FT Q8H PRN 06/10/21 Promethazine Tab [Phenergan*] 25 mg FT Q6H PRN 06/10/21 Tamsulosin [Flomax*] 0.4 mg PO DAILY 06/10/21 Nitrofurantoin Macrocrystal [Macrodantin] 100 mg PO TID 5 Days #15 capsule 06/12/21 Smz./Tmp. 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 He lives with his son. - Family History Father -: Heart disease, Hypertension, Lung disease, GI disease, Diabetes, Cancer, Other (see notes) Notes: parkinson's disease Mother -: Heart disease, Hypertension, Diabetes, Cancer Sister -: Cancer - Social History Alcohol use: No CD- Drugs: No Caffeine use: Yes Review of Systems 10-point ROS is otherwise unremarkable Respiratory: Cough Genitourinary: Dysuria Physical Examination - Vital Signs Temperature: 99.5 F Blood Pressure: 144/65 Pulse: 61 Respirations: 18 Pulse Ox (%): 97 - Physical Exam General: Alert, In no apparent distress HEENT: Atraumatic, PERRLA, Mucous membr. moist/pink, EOMI, Sclerae nonicteric Neck: Supple, 2+ carotid pulse no bruit, No LAD, Without JVD or thyroid abnormality Respiratory: Clear to auscultation bilaterally, Normal air movement Cardiovascular: Regular rate/rhythm, Normal S1 S2 Gastrointestinal: Normal bowel sounds, No tenderness Musculoskeletal: No tenderness Integumentary: No rashes Neurological: Normal gait, Normal speech, Normal strength at 5/5 x4 extr, Normal tone, Normal affect Lymphatics: No axilla or inguinal lymphadenopathy - Studies Laboratory Data (last 24 hrs) 08/24/21 11:00: PT 12.2, INR 1.06, APTT 35.0 08/24/21 11:00: WBC 10.40, Hgb 6.3 L*, Hct 19.7 L*, Plt Count 129 L 08/24/21 11:00: Sodium 143, Potassium 4.4, BUN 56 H, Creatinine 1.90 H, Glucose 91, Total Bilirubin 0.5, AST 28, ALT 46, Alkaline Phosphatase 93, Amylase 41, Lipase 69 L Assessment and Plan - Problems (Diagnosis) (1) Anemia aplastic aregenerative Current Visit: No Status: Chronic Plan: will transfuse him [address] Fierro is his regular hemooncologist. 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 Will have the patient on levaquin. Blood cultures pending. Will have the patient on breathing treatments prns Qualifiers: Pneumonia type: due to unspecified organism Laterality: bilateral (3) Urinary tract infection Current Visit: No Status: Acute Plan: change out his hernandez. Start the patient on levaquin. Qualifiers: Urinary tract infection type: acute cystitis Hematuria presence: without hematuria Qualified Code(s): N30.00 - Acute cystitis without hematuria (4) Diabetes mellitus type II, uncontrolled Onset Date: 11/05/16 Current Visit: No Status: Chronic Plan: start low dose sliding scale and ada diet order Qualifiers: Coma presence: without coma (5) Hypertension Onset Date: 11/05/16 Current Visit: No Status: Chronic Plan: restart his home amlodipine. Will adjust as necessary Qualifiers: Hypertension type: primary hypertension Qualified Code(s): I10 - Essential (primary) hypertension (6) Chronic indwelling Hernandez catheter Current Visit: No Status: Chronic Plan: He has been bed bound. He had the hernandez replaced in the ER. His states he has difficulty urinating. Not sure how this is possible we can consult Dr. Best. Discharge Plan: Home Plan to discharge in: 48 Hours - Advance Directives Does patient have a Living Will: No Does patient have a Durable POA for Healthcare: No - Code Status/Comfort Care Code Status Assessed: No Code Status: Full Code Physician Review: Patient Assessed, Agree with Above Assessment and Plan Critical Care: No Time Spent Managing Pts Care (In Minutes): 75
[2021-08-24] MEDS ORDERED: D50W 25 GM/50 ML SYRINGE IV PRN (17:05)
[2021-08-24] MEDS ORDERED: GLUCAGON 1 MG/VIAL IM PRN (17:05)
[2021-08-24 17:33] VITALS: BMI 19.0
[2021-08-24 17:51] LABS: Absolute Lymphocytes (CBC) 0.5 K/uL (0.7-4.9); Lymphocytes % 6.7 % (15.3-44.8); MPV 10.4 fL (7.6-11.3); RBC Red Blood Cell Count 2.65 M/uL (4.33-5.43)
[2021-08-24 18:13] LABS: Hematocrit 18.8 % (39.6-49.0)
[2021-08-24] MEDS ORDERED: NA CHLORIDE 0.9% 250 ML ONE (19:46)
[2021-08-24 20:04] LABS: Ferritin 1781.4 ng/mL (26-388); Folic Acid, (Folate) > 20.0 ng/mL (3.1-17.5); Transferrin 105 mg/dL (200-360); Uric Acid 6.1 mg/dL (3.5-7.2)
[2021-08-24] MEDS: INSULIN -REGULAR HUMAN 50 UNIT/0.5 ML ML SQ SCH (21:00)
[2021-08-24] MEDS: ASPIRIN EC 81 MG TAB PO SCH (21:57)
[2021-08-24] MEDS: GABAPENTIN 300 MG CAP FT SCH (21:57)
[2021-08-25] MEDS ORDERED: TRAZODONE 50 MG TABLET ONE (01:15)
[2021-08-25 06:25] LABS: Absolute Lymphocytes (CBC) 0.9 K/uL (0.7-4.9); Lymphocytes % 12.8 % (15.3-44.8); MPV 10.1 fL (7.6-11.3); RBC Red Blood Cell Count 2.78 M/uL (4.33-5.43)
[2021-08-25 06:39] LABS: Hematocrit 20.1 % (39.6-49.0)
[2021-08-25 06:45] LABS: Albumin 2.3 g/dL (3.4-5.0); Bilirubin Total 0.4 mg/dL (0.2-1.0); Potassium 4.8 mmol/L (3.5-5.1); Protein, Total 5.8 g/dL (6.4-8.2)
[2021-08-25] MEDS: INSULIN -REGULAR HUMAN 50 UNIT/0.5 ML ML SQ SCH ×4 (07:30→21:00)
[2021-08-25] MEDS: AMLODIPINE 10 MG TAB FT SCH (09:32)
[2021-08-25] MEDS: ESCITALOPRAM 20 MG TAB FT SCH (09:32)
[2021-08-25] MEDS: TAMSULOSIN 0.4 MG SR CAP PO SCH (09:32)
[2021-08-25] MEDS: GABAPENTIN 300 MG CAP FT SCH ×2 (09:32→20:49)
[2021-08-25] MEDS ORDERED: NA CHLORIDE 0.9% 250 ML ONE (10:52)
[2021-08-25] MEDS: LEVALBUTEROL 0.63 MG/3 ML NEB NEB PRN ×3 (11:21→19:29)
--- NOTE | 2021-08-25 11:29 | P.PN ---
Subjective Date of Service: 08/25/21 Primary Care Provider: Jatinder Chief Complaint: chronic Subjective: No new changes Review of Systems 10-point ROS is otherwise unremarkable Physical Examination - Vital Signs Temperature: 97.5 F Blood Pressure: 186/90 Pulse: 65 Respirations: 16 Pulse Ox (%): 93 - Physical Exam General: Alert, In no apparent distress HEENT: Atraumatic, PERRLA, EOMI Neck: Supple, JVD not distended Respiratory: Clear to auscultation bilaterally, Normal air movement Cardiovascular: Regular rate/rhythm, Normal S1 S2 Gastrointestinal: Normal bowel sounds, No tenderness Musculoskeletal: No tenderness Integumentary: No rashes Neurological: Normal speech, Normal tone, Normal affect Lymphatics: No axilla or inguinal lymphadenopathy - Studies Laboratory Data (last 24 hrs) 08/24/21 11:00: PT 12.2, INR 1.06, APTT 35.0 08/24/21 11:00: WBC 10.40, Hgb 6.3 L*, Hct 19.7 L*, Plt Count 129 L 08/24/21 11:00: Sodium 143, Potassium 4.4, BUN 56 H, Creatinine 1.90 H, Glucose 91, Uric Acid 6.1, Magnesium 2.5, Total Bilirubin 0.5, AST 28, ALT 46, Alkaline Phosphatase 93, Amylase 41, Lipase 69 L Assessment And Plan - Current Problems (Diagnosis) (1) Anemia aplastic aregenerative Current Visit: No Status: Chronic Plan: will transfuse him [address] Fierro is his regular hemooncologist. 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 08/25 Patient has not much improvement with one unit of blood. Will transfuse the second. will check a post h&H Possible may need additional units. 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 Will have the patient on levaquin. Blood cultures pending. Will have the patient on breathing treatments prns Qualifiers: Pneumonia type: due to unspecified organism Laterality: bilateral (3) Urinary tract infection Current Visit: No Status: Acute Plan: change out his hernandez. Start the patient on levaquin. Qualifiers: Urinary tract infection type: acute cystitis Hematuria presence: without hematuria Qualified Code(s): N30.00 - Acute cystitis without hematuria (4) Diabetes mellitus type II, uncontrolled Onset Date: 11/05/16 Current Visit: No Status: Chronic Plan: start low dose sliding scale and ada diet order Qualifiers: Coma presence: without coma (5) Hypertension Onset Date: 11/05/16 Current Visit: No Status: Chronic Plan: restart his home amlodipine. Will adjust as necessary Qualifiers: Hypertension type: primary hypertension Qualified Code(s): I10 - Essential (primary) hypertension (6) Chronic indwelling Hernandez catheter Current Visit: No Status: Chronic Plan: He has been bed bound. He had the hernandez replaced in the ER. His states he has difficulty urinating. Not sure how this is possible we can consult Dr. Best. Discharge Plan: Home Plan to discharge in: 48 Hours - Code Status/Comfort Care Code Status Assessed: No Physician Review: Patient Assessed, Agree with Above Assessment and Plan Critical Care: No Time Spent Managing PTS Care (In Minutes): 30
[2021-08-25] MEDS ORDERED: FUROSEMIDE 40 MG/4 ML VIAL IV ONE (11:34)
[2021-08-25] MEDS: SUCRALFATE 1GM/10ML UCUP FT SCH ×3 (12:00→20:50)
--- NOTE | 2021-08-25 14:31 | RAD REPORT ---
EXAM DESCRIPTION: US - Urinary Bladder - 08/25/2021 2:24 pm FINDINGS: Holcomb catheter is in place. Urinary bladder is fully contracted precluding any assessment of the bladder edwards. Volume was 3 milliliters.
[2021-08-25] MEDS: Levofloxacin500mg IV 500 MG/100 ML BAG IV SCH (15:46)
--- NOTE | 2021-08-25 16:33 | RAD REPORT ---
EXAM DESCRIPTION: RAD - Chest Pa And Lat (2 Views) - 08/25/2021 4:23 pm CLINICAL HISTORY: pleural effusion COMPARISON: Portable 08/24/2021, 06/28/2021 and 07/07/2021 TECHNIQUE: Frontal and lateral views of the chest were obtained. FINDINGS: Prominent baseline interstitial pattern noted. Sternotomy wires remain in place. No new tu be or line. Bilateral costophrenic angle blunting is present right greater than left. Pleural effusio ns have been previously diagnosed and right-sided pleural fluid has decreased. Cardiomegaly has shown fractional improvement. Vasculature is slightly less pronounced. Trachea is midline. No pneumothorax . No acute bony finding noted. No aortic abnormality. IMPRESSION: Right-sided pleural fluid appears to be improved somewhat from prior day imaging. Cardiomegaly and vascular engorgement have improved but not resolved.
[2021-08-25] MEDS: NEPRO 1,000 ML BOT FT SCH ×2 (17:20→20:52)
[2021-08-25 17:30] LABS: Hematocrit 25.9 % (39.6-49.0)
[2021-08-25] MEDS: FUROSEMIDE 20 MG TABLET PO SCH (18:16)
[2021-08-25 18:56] LABS: Rheumatoid Factor NEG (NEG)
[2021-08-25] MEDS: ASPIRIN EC 81 MG TAB PO SCH (20:49)
[2021-08-25] MEDS: TRAZODONE 150 MG TAB PO SCH (20:51)
[2021-08-25] MEDS ORDERED: GUAIFENESIN/DM 5 ML UCUP PO SCH (21:00)
[2021-08-25] MEDS ORDERED: HOME MED 1 EA UNK (Trazodone Hcl [Trazodone Hcl] 100 MG Tablet) FT SCH (21:00)
[2021-08-26] MEDS: LEVALBUTEROL 0.63 MG/3 ML NEB NEB PRN ×6 (01:59→23:00)
[2021-08-26] MEDS: HYDRALAZINE HCL 20 MG/ML VIAL IV PRN (05:35)
[2021-08-26 06:03] LABS: Hematocrit 24.8 % (39.6-49.0); Lymphocytes % 12.6 % (15.3-44.8); MPV 10.5 fL (7.6-11.3); RBC Red Blood Cell Count 3.41 M/uL (4.33-5.43)
[2021-08-26] MEDS: Pantoprazole (granules) 40 MG/BLIST PACKET FT SCH (06:30)
[2021-08-26 06:32] LABS: Albumin 2.3 g/dL (3.4-5.0); Bilirubin Total 0.4 mg/dL (0.2-1.0); Potassium 4.3 mmol/L (3.5-5.1); Protein, Total 6.2 g/dL (6.4-8.2)
[2021-08-26] MEDS: INSULIN -REGULAR HUMAN 50 UNIT/0.5 ML ML SQ SCH ×4 (07:30→21:00)
[2021-08-26] MEDS: SUCRALFATE 1GM/10ML UCUP FT SCH ×4 (08:59→21:27)
[2021-08-26] MEDS: CLOPIDOGREL 75 MG TABLET FT SCH (09:00)
[2021-08-26] MEDS: ESCITALOPRAM 20 MG TAB FT SCH (09:00)
[2021-08-26] MEDS: AMLODIPINE 10 MG TAB FT SCH (09:00)
[2021-08-26] MEDS: FUROSEMIDE 20 MG TABLET PO SCH (09:00)
[2021-08-26] MEDS: GABAPENTIN 300 MG CAP FT SCH ×2 (09:00→21:28)
[2021-08-26] MEDS: TAMSULOSIN 0.4 MG SR CAP PO SCH (09:00)
[2021-08-26] MEDS: NEPRO 1,000 ML BOT FT SCH ×4 (09:01→21:00)
--- NOTE | 2021-08-26 09:57 | P.PN ---
Subjective Date of Service: 08/26/21 Primary Care Provider: Jatinder Chief Complaint: chronic Subjective: Improving Review of Systems 10-point ROS is otherwise unremarkable Physical Examination - Vital Signs Temperature: 97.9 F Blood Pressure: 162/62 Pulse: 64 Respirations: 16 Pulse Ox (%): 97 - Physical Exam General: Alert, In no apparent distress HEENT: Atraumatic, PERRLA, EOMI Neck: Supple, JVD not distended Respiratory: Clear to auscultation bilaterally, Normal air movement Cardiovascular: Regular rate/rhythm, Normal S1 S2 Gastrointestinal: Normal bowel sounds, No tenderness Musculoskeletal: No tenderness Integumentary: No rashes Neurological: Normal speech, Normal tone, Normal affect Lymphatics: No axilla or inguinal lymphadenopathy - Studies Microbiology Data (last 24 hrs): 08/24/21 12:01 Clean Catch Urine [place] Count - Final >100,000 CFU/ML. 08/24/21 12:01 Clean Catch Urine - Final Pseudomonas Aeruginosa Assessment And Plan - Current Problems (Diagnosis) (1) Anemia aplastic aregenerative Current Visit: No Status: Chronic Plan: will transfuse him [address] Fierro is his regular hemooncologist. 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 08/25 Patient has not much improvement with one unit of blood. Will transfuse the second. will check a post h&H Possible may need additional units. 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 Start the patient on levaquin. 08/26 MDR pseudomonas. Will d/c levaquin and start him on meropenem. Will give 3 to 5 days of treatment Qualifiers: Urinary tract infection type: acute cystitis Hematuria presence: without hematuria Qualified Code(s): N30.00 - Acute cystitis without hematuria (3) Diabetes mellitus type II, uncontrolled Onset Date: 11/05/16 Current Visit: No Status: Chronic Plan: start low dose sliding scale and ada diet order Qualifiers: Coma presence: without coma (4) Hypertension Onset Date: 11/05/16 Current Visit: No Status: Chronic Plan: restart his home amlodipine. Will adjust as necessary Qualifiers: Hypertension type: primary hypertension Qualified Code(s): I10 - Essential (primary) hypertension (5) Chronic indwelling Hernandez catheter Current Visit: No Status: Chronic Plan: He has been bed bound. He had the hernandez replaced in the ER. His states he has difficulty urinating. Not sure how this is possible we can consult Dr. Best. (6) Pleural effusion Current Visit: Yes Status: Acute Plan: is improving with blood products. Most likely due to chf/anemia like response Discharge Plan: Home Plan to discharge in: Greater than 2 days - Code Status/Comfort Care Code Status Assessed: No Physician Review: Patient Assessed, Agree with Above Assessment and Plan Critical Care: No Time Spent Managing PTS Care (In Minutes): 20
[2021-08-26] MEDS: Meropenem 500 MG in NA CHLORIDE 0.9% 100 ML IV SCH (16:37)
[2021-08-26] MEDS: ASPIRIN EC 81 MG TAB PO SCH (21:28)
[2021-08-26] MEDS: TRAZODONE 150 MG TAB PO SCH (21:28)
[2021-08-27] MEDS ORDERED: Meropenem 500 MG VIAL IV ONE ×3 (00:21→18:18)
[2021-08-27] MEDS ORDERED: NA CHLORIDE 0.9% 100 ML ONE ×3 (00:24→15:56)
[2021-08-27] MEDS: Meropenem 500 MG in NA CHLORIDE 0.9% 100 ML IV SCH ×3 (00:29→18:18)
[2021-08-27] MEDS: Pantoprazole (granules) 40 MG/BLIST PACKET FT SCH (05:54)
[2021-08-27 06:01] LABS: Absolute Lymphocytes (CBC) 0.8 K/uL (0.7-4.9); Hematocrit 21.8 % (39.6-49.0); Lymphocytes % 10.4 % (15.3-44.8); RBC Red Blood Cell Count 2.98 M/uL (4.33-5.43)
[2021-08-27 06:19] LABS: Albumin 2.1 g/dL (3.4-5.0); Bilirubin Total 0.3 mg/dL (0.2-1.0); Potassium 4.3 mmol/L (3.5-5.1); Protein, Total 5.6 g/dL (6.4-8.2)
[2021-08-27] MEDS: INSULIN -REGULAR HUMAN 50 UNIT/0.5 ML ML SQ SCH ×4 (07:30→20:22)
[2021-08-27] MEDS: LEVALBUTEROL 0.63 MG/3 ML NEB NEB PRN ×3 (07:58→16:33)
[2021-08-27] MEDS: GABAPENTIN 300 MG CAP FT SCH ×2 (08:39→20:15)
[2021-08-27] MEDS: ESCITALOPRAM 20 MG TAB FT SCH (08:46)
[2021-08-27] MEDS: CLOPIDOGREL 75 MG TABLET FT SCH (08:47)
[2021-08-27] MEDS: AMLODIPINE 10 MG TAB FT SCH (08:47)
[2021-08-27] MEDS: TAMSULOSIN 0.4 MG SR CAP PO SCH (08:47)
[2021-08-27] MEDS: NEPRO 1,000 ML BOT FT SCH ×4 (08:48→20:29)
[2021-08-27] MEDS: SUCRALFATE 1GM/10ML UCUP FT SCH ×4 (08:48→20:15)
--- NOTE | 2021-08-27 11:19 | P.PN ---
Subjective Date of Service: 08/27/21 Primary Care Provider: Jatinder Chief Complaint: chronic Subjective: New changes (hb dropped by 1 unit) Review of Systems 10-point ROS is otherwise unremarkable Physical Examination - Vital Signs Temperature: 98.2 F Blood Pressure: 173/74 Pulse: 69 Respirations: 18 Pulse Ox (%): 69 - Physical Exam General: Alert, In no apparent distress HEENT: Atraumatic, PERRLA, EOMI Neck: Supple, JVD not distended Respiratory: Clear to auscultation bilaterally, Normal air movement Cardiovascular: Regular rate/rhythm, Normal S1 S2 Gastrointestinal: Normal bowel sounds, No tenderness Musculoskeletal: No tenderness Integumentary: No rashes Neurological: Normal speech, Normal tone, Normal affect Lymphatics: No axilla or inguinal lymphadenopathy - Studies Microbiology Data (last 24 hrs): 08/24/21 12:01 Clean Catch Urine [place] Count - Final >100,000 CFU/ML. 08/24/21 12:01 Clean Catch Urine - Final Pseudomonas Aeruginosa Assessment And Plan - Current Problems (Diagnosis) (1) Anemia aplastic aregenerative Current Visit: No Status: Chronic Plan: will transfuse him [address] Fierro is his regular hemooncologist. 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 08/27 has again dropped. Patient is pale. Will transfuse 1 more unit of blood. he is 7.1 but has been dropping. Will get a stool guiac. He is constipated. Will start him on colace. 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 Start the patient on levaquin. 08/27 MDR pseudomonas. Will d/c levaquin and start him on meropenem. Day 2/5 of treatment Qualifiers: Urinary tract infection type: acute cystitis Hematuria presence: without hematuria Qualified Code(s): N30.00 - Acute cystitis without hematuria (3) Diabetes mellitus type II, uncontrolled Onset Date: 11/05/16 Current Visit: No Status: Chronic Plan: start low dose sliding scale and ada diet order Qualifiers: Coma presence: without coma (4) Hypertension Onset Date: 11/05/16 Current Visit: No Status: Chronic Plan: restart his home amlodipine. Will adjust as necessary Qualifiers: Hypertension type: primary hypertension Qualified Code(s): I10 - Essential (primary) hypertension (5) Chronic indwelling Hernandez catheter Current Visit: No Status: Chronic Plan: He has been bed bound. He had the hernandez replaced in the ER. His states he has difficulty urinating. Not sure how this is possible we can consult Dr. Best. (6) Pleural effusion Current Visit: Yes Status: Acute Plan: is improving with blood products. Most likely due to chf/anemia like response Discharge Plan: Home Plan to discharge in: 24 Hours - Code Status/Comfort Care Code Status Assessed: No Physician Review: Patient Assessed, Agree with Above Assessment and Plan Critical Care: No Time Spent Managing PTS Care (In Minutes): 25
[2021-08-27] MEDS ORDERED: NA CHLORIDE 0.9% 250 ML ONE (12:56)
[2021-08-27] MEDS: CLONIDINE 0.1 MG/PATCH TD SCH (13:03)
[2021-08-27] MEDS: TRAZODONE 150 MG TAB PO SCH (20:15)
[2021-08-27] MEDS: ASPIRIN EC 81 MG TAB PO SCH (20:15)
[2021-08-27] MEDS: DOCUSATE NA 100 MG CAP PO SCH (20:18)
[2021-08-27 21:35] LABS: Hematocrit 25.5 % (39.6-49.0)
[2021-08-28] MEDS: Meropenem 500 MG in NA CHLORIDE 0.9% 100 ML IV SCH ×2 (00:38→09:26)
[2021-08-28] MEDS: Pantoprazole (granules) 40 MG/BLIST PACKET FT SCH (05:45)
[2021-08-28] MEDS: INSULIN -REGULAR HUMAN 50 UNIT/0.5 ML ML SQ SCH ×4 (07:30→20:45)
[2021-08-28] MEDS: NEPRO 1,000 ML BOT FT SCH ×4 (09:00→20:45)
[2021-08-28] MEDS: ESCITALOPRAM 20 MG TAB FT SCH (09:23)
[2021-08-28] MEDS ORDERED: Meropenem 500 MG VIAL IV ONE (09:23)
[2021-08-28] MEDS ORDERED: NA CHLORIDE 0.9% 100 ML ONE (09:23)
[2021-08-28] MEDS: TAMSULOSIN 0.4 MG SR CAP PO SCH (09:24)
[2021-08-28] MEDS: AMLODIPINE 10 MG TAB FT SCH (09:24)
[2021-08-28] MEDS: DOCUSATE NA 100 MG CAP PO SCH ×2 (09:24→20:42)
[2021-08-28] MEDS: GABAPENTIN 300 MG CAP FT SCH ×2 (09:24→20:42)
[2021-08-28] MEDS: CLOPIDOGREL 75 MG TABLET FT SCH (09:24)
[2021-08-28] MEDS: SUCRALFATE 1GM/10ML UCUP FT SCH ×4 (09:25→20:41)
[2021-08-28 12:49] LABS: HIV AG/AB 4TH GEN Non-reactive (Non-reactive)
[2021-08-28] MEDS ORDERED: FUROSEMIDE 40 MG/4 ML VIAL IV ONE (14:47)
--- NOTE | 2021-08-28 14:52 | P.PN ---
Subjective Date of Service: 08/28/21 Primary Care Provider: Jatinder Chief Complaint: chronic Subjective: No new changes Review of Systems 10-point ROS is otherwise unremarkable Cardiovascular: Edema Physical Examination - Vital Signs Temperature: 98.0 F Blood Pressure: 149/70 Pulse: 68 Respirations: 22 Pulse Ox (%): 97 - Physical Exam General: Alert, In no apparent distress HEENT: Atraumatic, PERRLA, EOMI Neck: Supple, JVD not distended Respiratory: Clear to auscultation bilaterally, Normal air movement Cardiovascular: Regular rate/rhythm, Normal S1 S2, Edema (of the legs and penis 1+) Gastrointestinal: Normal bowel sounds, No tenderness Musculoskeletal: No tenderness Integumentary: No rashes Neurological: Normal speech, Normal tone, Normal affect Lymphatics: No axilla or inguinal lymphadenopathy Assessment And Plan - Current Problems (Diagnosis) (1) Acute renal failure Current Visit: No Status: Acute Plan: Patient is not improving. We have been giving him blood rather than lasix. He did come in with pleural effusion Will consult Dr. 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 Fierro is his regular hemooncologist. 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 08/28 awaiting a work up with Dr. 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 Start the patient on levaquin. 08/27 MDR pseudomonas. Will d/c levaquin and start him on meropenem. Day 25 of treatment Qualifiers: Urinary tract infection type: acute cystitis Hematuria presence: without hematuria Qualified Code(s): N30.00 - Acute cystitis without hematuria (4) Diabetes mellitus type II, uncontrolled Onset Date: 11/05/16 Current Visit: No Status: Chronic Plan: start low dose sliding scale and ada diet order Qualifiers: Coma presence: without coma (5) Hypertension Onset Date: 11/05/16 Current Visit: No Status: Chronic Plan: restart his home amlodipine. Will adjust as necessary Qualifiers: Hypertension type: primary hypertension Qualified Code(s): I10 - Essential (primary) hypertension (6) Chronic indwelling Hernandez catheter Current Visit: No Status: Chronic Plan: He has been bed bound. He had the hernandez replaced in the ER. His states he has difficulty urinating. Not sure how this is possible we can consult Dr. Best. (7) Pleural effusion Current Visit: Yes Status: Acute Plan: is improving with blood products. Most likely due to chf/anemia like response Discharge Plan: Home Plan to discharge in: Greater than 2 days - Code Status/Comfort Care Code Status Assessed: No Code Status: Full Code Physician Review: Patient Assessed, Agree with Above Assessment and Plan Critical Care: No Time Spent Managing PTS Care (In Minutes): 25
[2021-08-28 15:30] LABS: KAPPA LIGHT CHAIN, FREE SERUM 124.1 mg/L (3.3-19.4)
[2021-08-28] MEDS: FUROSEMIDE 20 MG TABLET PO SCH (16:24)
[2021-08-28] MEDS ORDERED: METOLAZONE 5 MG TABLET FT ONE (19:34)
--- NOTE | 2021-08-28 19:42 | P.CNS ---
Date of Consult: 08/28/21 Reason for Consult: OSCAR/ CKD Requesting Physician: Antonio Tobias Primary Care Provider: Jatinder Chief Complaint: chronic History of Present Illness: 66 yo WM HTN, DM presented to the ER with several days of moderate, progressive UTI symptoms with associated confusion. 11:08 This 66 yrs old Male presents to ER via Unassigned with complaints of UTI symptoms. sp3 11:08 66-year-old male with extensive past medical history which includes CAD, hypertension, sp3 diabetes, chronic indwelling Holcomb catheter secondary to back injury and limited mobility, presents via EMS for chief complaint "Holcomb catheter problem and UTI". Patient has had an indwelling Holcomb for several years and has had an issue with chronic urinary tract infections. Family also reports some mild confusion but per EMS he has been alert and oriented x4 for them without any seizure activity or other signs of TIA/stroke. On ROS, patient denies headache, neck pain, chest pain, shortness of breath, URI symptoms, abdominal pain, nausea, vomiting, diarrhea, rash, syncope, focal neuro deficits, or any other findings at this time.. Allergies spironolactone Adverse Reaction (Verified 04/02/21 23:03) Anaphylaxis nexen Adverse Reaction (Uncoded 02/08/21 23:48) hallucination Home medications list reviewed: Yes Home Medications: Aspirin [Adult Aspirin Regimen] 81 mg FT BEDTIME 06/04/20 Atorvastatin Calcium [Lipitor] 80 mg FT BEDTIME 06/04/20 Amlodipine [Norvasc*] 10 mg FT DAILY 07/16/20 Clopidogrel Bisulfate [Plavix*] 75 mg FT DAILY 07/16/20 Escitalopram [Lexapro*] 40 mg FT DAILY 07/16/20 Gabapentin 300 mg FT BID 07/16/20 Doxazosin [Cardura*] 2 mg FT BEDTIME 30 Days #30 tab 12/08/20 Ascorbic Acid [Vitamin C] 1,000 mg FT BID 12/16/20 Sucralfate [Carafate] 100 mg FT SEECOM 12/16/20 Trazodone HCl 150 tab FT BEDTIME 12/16/20 Furosemide 20 mg PO BID 04/02/21 Insulin -Regular Human [Novolin -R*] 100 units SQ ACHS 04/02/21 Ferrous Sulfate [Ferrous Sulfate Elixir*] 220 mg FT BID 06/10/21 Nut.tx.impaired Renal Fxn,Soy [Nepro Carb Steady] 360 mg FT QID 06/10/21 Ondansetron [Ondansetron Odt] 4 mg FT Q8H PRN 06/10/21 Promethazine Tab [Phenergan*] 25 mg FT Q6H PRN 06/10/21 Tamsulosin [Flomax*] 0.4 mg PO DAILY 06/10/21 Benzonatate 1 cap PO TID 08/25/21 - Past Medical/Surgical History Diabetic: Yes -: Diabetes mellitus type 2, insulin-dependent -: CAD -: Hypertension -: Hyperlipidemia -: COPD -: Tobacco abuse -: Fracture t12 L3 -: PEG tube -: CKD 3 -: seizures -: Stroke -: Chronic diastolic congestive -: Knee surgery -: I&D lower right buttock -: hiatal hernia repair -: I and D to the left foot -: Left Bipolar Hemiarthroplasty 04/06/19 -: Hip surgery -: CABG -: hand sx, PEG Psychosocial/ Personal History: Patient is single. He lives with his son. - Family History Father Medical History: Heart disease, Hypertension, Lung disease, GI disease, Diabetes, Cancer, Other (see notes) Notes: parkinson's disease Mother Medical History: Heart disease, Hypertension, Diabetes, Cancer Sister Medical History: Cancer - Social History Smoking Status: Unknown if ever smoked Alcohol use: No CD- Drugs: No Caffeine use: Yes Place of Residence: Home Review of Systems 10-point ROS is otherwise unremarkable General: Weakness, Malaise Neurological: Weakness Physical Examination Temp Pulse Resp BP Pulse Ox 98.3 F 68 20 149/70 H 96 08/28/21 16:00 08/28/21 16:24 08/28/21 16:00 08/28/21 16:24 08/28/21 16:00 General: In no apparent distress, Oriented x2, Cooperative HEENT: Atraumatic Neck: Supple Respiratory: Clear to auscultation bilaterally Cardiovascular: Regular rate/rhythm, Edema Gastrointestinal: Non-distended, No guarding Musculoskeletal: No clubbing, No contractures Integumentary: No rashes, No cyanosis Neurological: Normal speech External genitalia: Edema Blood work reviewed in the chart. Imagings Data: EXAM DESCRIPTION: US - Urinary Bladder - 08/25/2021 2:24 pm FINDINGS: Holcomb catheter is in place. Urinary bladder is fully contracted precluding any assessment of the bladder edwards. Volume was 3 milliliters. EXAM DESCRIPTION: RAD - Chest Pa And Lat (2 Views) - 08/25/2021 4:23 pm CLINICAL HISTORY: pleural effusion COMPARISON: Portable 08/24/2021, 06/28/2021 and 07/07/2021 TECHNIQUE: Frontal and lateral views of the chest were obtained. FINDINGS: Prominent baseline interstitial pattern noted. Sternotomy wires remain in place. No new tube or line. Bilateral costophrenic angle blunting is present right greater than left. Pleural effusions have been previously diagnosed and right-sided pleural fluid has decreased. Cardiomegaly has shown fractional improvement. Vasculature is slightly less pronounced. Trachea is midline. No pneumothorax. No acute bony finding noted. No aortic abnormality. IMPRESSION: Right-sided pleural fluid appears to be improved somewhat from prior day imaging. Cardiomegaly and vascular engorgement have improved but not resolved. Conclusions/Impression: OSCAR may be CRS CKD III with proteinuria -No NSAIDs -Increase Lasix Hypocalcemia -Consider Vitamin D HTN with CKD/ CHF -Continue Amlodipine and Catapres Diastolic CHF, A/C Pleural effusions -Increase Lasix 20mg IV q6h -Metolazone 5mg X1 DM II with CKD -RISS Moderate malnutrition -Continue Nepro through FT Anemia in chronic illness -Monitor H&H -Transfuse PRBC as needed BPH with LUTS -Continue Flomax -Continue Holcomb Catheter Thank you kindly for the consultation.
[2021-08-28 20:05] LABS: Erythropoietin 15.3 mIU/mL (2.6-18.5)
[2021-08-28] MEDS: ASPIRIN EC 81 MG TAB PO SCH (20:42)
[2021-08-28] MEDS: TRAZODONE 150 MG TAB PO SCH ×2 (20:42→22:30)
[2021-08-28] MEDS: Meropenem 1,000 MG in NA CHLORIDE 0.9% 100 ML IV SCH (20:43)
[2021-08-28] MEDS: FUROSEMIDE 20 MG/ 2ML VIAL IV SCH (20:44)
[2021-08-29] MEDS: LEVALBUTEROL 0.63 MG/3 ML NEB NEB PRN ×4 (02:45→16:10)
[2021-08-29] MEDS: FUROSEMIDE 20 MG/ 2ML VIAL IV SCH ×4 (02:55→20:50)
[2021-08-29 03:33] LABS: HBsAG Nonreactive (Nonreactive)
[2021-08-29 04:16] LABS: Urine Appearance CLOUDY (Clear); Urine Bilirubin NEGATIVE (Negative); Urine Blood 1+ (Negative); Urine Color YELLOW (Yellow); Urine Glucose NEGATIVE (Negative); Urine Protein 3+ (Negative); Urine Urobilinogen 0.2 mg/dL (0.2-1.0)
[2021-08-29 04:46] LABS: UR PROTEIN 309.4 mg/dL (<11.9); Urine Protein/Creatinine Ratio 13.45 ratio (<0.15)
[2021-08-29 05:25] LABS: Urine Bacteria <20 /HPF (NONE SEEN); Urine RBC <5 /HPF (NONE SEEN); Urine Yeast MANY (NONE SEEN); Urine Yeast with Hyphae PRESENT
[2021-08-29 05:42] LABS: Alpha-1-Globulins 0.3 g/dL (0.2-0.3); Alpha-2-Globulins 0.7 g/dL (0.5-0.9); INTERPRETATION REPORT
[2021-08-29 05:56] LABS: Absolute Lymphocytes (CBC) 0.6 K/uL (0.7-4.9); Hematocrit 26.5 % (39.6-49.0); Lymphocytes % 6.4 % (15.3-44.8); MPV 10.7 fL (7.6-11.3); RBC Red Blood Cell Count 3.57 M/uL (4.33-5.43)
[2021-08-29] MEDS: Pantoprazole (granules) 40 MG/BLIST PACKET FT SCH (06:09)
[2021-08-29 06:16] LABS: Albumin 2.2 g/dL (3.4-5.0); Bilirubin Total 0.4 mg/dL (0.2-1.0); Phosphorus 3.3 mg/dL (2.5-4.9); Potassium 5.1 mmol/L (3.5-5.1); Protein, Total 5.9 g/dL (6.4-8.2); Uric Acid 6.2 mg/dL (3.5-7.2)
[2021-08-29 06:17] LABS: Magnesium 2.9 mg/dL (1.8-2.4)
[2021-08-29] MEDS: INSULIN -REGULAR HUMAN 50 UNIT/0.5 ML ML SQ SCH ×4 (07:30→21:00)
[2021-08-29 08:45] LABS: Blood Morphology Comment NOTED (NOT SEEN); Platelet Estimate DECR; White Blood Cell Scan OK (OK)
[2021-08-29 08:46] LABS: Anisocytosis 1+
[2021-08-29] MEDS: CLOPIDOGREL 75 MG TABLET FT SCH (08:59)
[2021-08-29] MEDS: TAMSULOSIN 0.4 MG SR CAP PO SCH (08:59)
[2021-08-29] MEDS: ESCITALOPRAM 20 MG TAB FT SCH (08:59)
[2021-08-29] MEDS: AMLODIPINE 10 MG TAB FT SCH (08:59)
[2021-08-29] MEDS: SUCRALFATE 1GM/10ML UCUP FT SCH ×4 (09:00→21:17)
[2021-08-29] MEDS: NEPRO 1,000 ML BOT FT SCH ×4 (09:00→21:00)
[2021-08-29] MEDS: Meropenem 1,000 MG in NA CHLORIDE 0.9% 100 ML IV SCH ×2 (09:00→20:53)
[2021-08-29] MEDS: GABAPENTIN 300 MG CAP FT SCH ×2 (09:00→20:55)
[2021-08-29] MEDS: DOCUSATE NA 100 MG CAP PO SCH ×2 (09:00→20:52)
[2021-08-29 10:12] LABS: Urine Blood 2+ (Negative); Urine Glucose Negative (Negative); Urine Protein 3+ (Negative); Urine Specific Gravity 1.015 (1.005-1.030); Urine pH 5.5 (5.0-7.0)
--- NOTE | 2021-08-29 11:47 | P.PN ---
Subjective Date of Service: 08/29/21 Primary Care Provider: Jatinder Chief Complaint: chronic Subjective: Worsening (patient is less swollen. His creatine has increased) Review of Systems 10-point ROS is otherwise unremarkable Physical Examination - Vital Signs Temperature: 97.5 F Blood Pressure: 172/75 Pulse: 69 Respirations: 16 Pulse Ox (%): 96 - Physical Exam General: Alert, In no apparent distress HEENT: Atraumatic, PERRLA, EOMI Neck: Supple, JVD not distended Respiratory: Clear to auscultation bilaterally, Normal air movement Cardiovascular: Regular rate/rhythm, Normal S1 S2 Gastrointestinal: Normal bowel sounds, No tenderness Musculoskeletal: No tenderness Integumentary: No rashes Neurological: Normal speech, Normal tone, Normal affect Lymphatics: No axilla or inguinal lymphadenopathy - Studies Microbiology Data (last 24 hrs): 08/24/21 10:24 Blood - Blood Aerobic Blood Culture - Final No growth in 5 days. 08/24/21 10:24 Blood - Blood Anaerobic Blood Culture - Final No growth in 5 days. 08/24/21 10:34 Blood - Blood Aerobic Blood Culture - Final No growth in 5 days. 08/24/21 10:34 Blood - Blood Anaerobic Blood Culture - Final No growth in 5 days. Assessment And Plan - Current Problems (Diagnosis) (1) Acute renal failure Current Visit: No Status: Acute Plan: Patient is not improving. We have been giving him blood rather than lasix. He did come in with pleural effusion Will consult Dr. Almanzar 08/29 Patient is slightly worse. Have discussed the patient with Dr. Almanzar. 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 Fierro is his regular hemooncologist. 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 08/29 Negative guiac. awaiting labs. 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 Start the patient on levaquin. 08/27 MDR pseudomonas. Will d/c levaquin and start him on meropenem. Day 08/19 of treatment Qualifiers: Urinary tract infection type: acute cystitis Hematuria presence: without hematuria Qualified Code(s): N30.00 - Acute cystitis without hematuria (4) Diabetes mellitus type II, uncontrolled Onset Date: 11/05/16 Current Visit: No Status: Chronic Plan: start low dose sliding scale and ada diet order Qualifiers: Coma presence: without coma (5) Hypertension Onset Date: 11/05/16 Current Visit: No Status: Chronic Plan: restart his home amlodipine. Will adjust as necessary Qualifiers: Hypertension type: primary hypertension Qualified Code(s): I10 - Essential (primary) hypertension (6) Chronic indwelling Hernandez catheter Current Visit: No Status: Chronic Plan: He has been bed bound. He had the hernandez replaced in the ER. His states he has difficulty urinating. Not sure how this is possible we can consult Dr. Best. (7) Pleural effusion Current Visit: Yes Status: Acute Plan: is improving with blood products. Most likely due to chf/anemia like response Discharge Plan: Home Plan to discharge in: Greater than 2 days - Code Status/Comfort Care Code Status Assessed: No Physician Review: Patient Assessed, Agree with Above Assessment and Plan Critical Care: No Time Spent Managing PTS Care (In Minutes): 25
--- NOTE | 2021-08-29 19:57 | P.PN ---
Date of Service: 08/29/21 Vital Signs Temp Pulse Resp BP Pulse Ox 97.4 F 67 16 146/65 H 95 08/29/21 16:00 08/29/21 16:00 08/29/21 16:00 08/29/21 16:00 08/29/21 16:00 Medications Amlodipine Besylate (Amlodipine 10 Mg Tab) 10 mg FT DAILY [facility] Last Admin: 08/29/21 08:59 Dose: 10 mg Documented by: Aspirin (Aspirin Ec 81 Mg Tab) 81 mg PO BEDTIME [facility] Last Admin: 08/28/21 20:42 Dose: 81 mg Documented by: Clonidine HCl (Clonidine 0.1 Mg/Patch) 0.1 mg TD EVERY 7TH DAY [facility] Last Admin: 08/27/21 13:03 Dose: 0.1 mg Documented by: Clopidogrel Bisulfate (Clopidogrel 75 Mg Tablet) 75 mg FT DAILY [facility] Last Admin: 08/29/21 08:59 Dose: 75 mg Documented by: Dextrose (D50w 25 Gm/50 Ml Syringe) 12.5 gm IV PRN PRN; Protocol PRN Reason: HYPOGLYCEMIA Docusate Sodium (Docusate Na 100 Mg Cap) 100 mg PO BID [facility] Last Admin: 08/29/21 09:00 Dose: 100 mg Documented by: Enteral Nutritional Formula (Nepro 1,000 Ml Bot) 237 ml FT QID [facility] Last Admin: 08/29/21 16:46 Dose: Not Given Documented by: Escitalopram Oxalate (Escitalopram 20 Mg Tab) 40 mg FT DAILY [facility] Last Admin: 08/29/21 08:59 Dose: 40 mg Documented by: Furosemide (Furosemide 20 Mg/ 2ml Vial) 20 mg IV Q6H [facility] Last Admin: 08/29/21 14:25 Dose: 20 mg Documented by: Gabapentin (Gabapentin 300 Mg Cap) 300 mg FT BID [facility] Last Admin: 08/29/21 09:00 Dose: 300 mg Documented by: Glucagon (Glucagon 1 Mg/Vial) 1 mg IM 1X PRN; Protocol PRN Reason: HYPOGLYCEMIA Guaifenesin/Dextromethorphan (Guaifenesin/Dm 5 Ml Ucup) 15 ml PO QID PRN PRN Reason: COUGH Hydralazine HCl (Hydralazine Hcl 20 Mg/Ml Vial) 10 mg IV Q6HP PRN PRN Reason: HIGHBP Last Admin: 08/26/21 05:35 Dose: 10 mg Documented by: Meropenem 1,000 mg/ Sodium (Chloride) 100 mls @ 200 mls/hr IV Q12HR [facility] Last Admin: 08/29/21 09:00 Dose: 100 mls Documented by: Insulin Human Regular (Insulin -Regular Human 50 Unit/0.5 Ml Ml) 0 unit SQ ACHS [facility]; Protocol Last Admin: 08/29/21 16:30 Dose: Not Given Documented by: Levalbuterol HCl (Levalbuterol 0.63 Mg/3 Ml Neb) 0.63 mg NEB [id number] PRN PRN Reason: SHORTNESS OF BREATH Last Admin: 08/29/21 16:10 Dose: 0.63 mg Documented by: Ondansetron HCl (Ondansetron 4 Mg (Odt) Tab) 4 mg FT Q8H PRN PRN Reason: NAUSEA / VOMITING Pantoprazole Sodium (Pantoprazole (Granules) 40 Mg/Blist Packet) 40 mg FT DAILYAC [facility]; Protocol Last Admin: 08/29/21 06:09 Dose: 40 mg Documented by: Sucralfate (Sucralfate 1gm/10ml Ucup) 0.1 gm FT 0800,1200,1700,2000 [facility] Last Admin: 08/29/21 16:43 Dose: 0.1 gm Documented by: Tamsulosin HCl (Tamsulosin 0.4 Mg Sr Cap) 0.4 mg PO DAILY [facility] Last Admin: 08/29/21 08:59 Dose: 0.4 mg Documented by: Trazodone HCl (Trazodone 150 Mg Tab) 150 mg PO BEDTIME [facility] Last Admin: 08/28/21 22:30 Dose: 150 mg Documented by: Lab Results (last 24 hrs) 08/24/21 12:05: Urine pH 5.5, Ur Specific [place] 1.015, Glucose (UA)(Auto) Negative, Urine Ketones Trace H, Urine Blood 2+ H, Urine Nitrite Negative, Ur Leukocyte Esterase 1+ H, Urine Total Protein 3+ H Microbiology Results 08/24/21 10:24 Blood - Blood Aerobic Blood Culture - Final No growth in 5 days. 08/24/21 10:24 Blood - Blood Anaerobic Blood Culture - Final No growth in 5 days. 08/24/21 10:34 Blood - Blood Aerobic Blood Culture - Final No growth in 5 days. 08/24/21 10:34 Blood - Blood Anaerobic Blood Culture - Final No growth in 5 days. 08/24/21 12:01 Clean Catch Urine [place] Count - Final >100,000 CFU/ML. 08/24/21 12:01 Clean Catch Urine - Final Pseudomonas Aeruginosa Assessment/ Plan: Nephrology No dyspnea No chest pain No acute events overnight Vitals, medications, blood work and imaging reviewed in the chart. General: In no apparent distress, Oriented x2, Cooperative HEENT: Atraumatic Neck: Supple Respiratory: Clear to auscultation bilaterally Cardiovascular: Regular rate/rhythm, Edema Gastrointestinal: Non-distended, No guarding Musculoskeletal: No clubbing, No contractures Integumentary: No rashes, No cyanosis Neurological: Normal speech External genitalia: Edema Blood work reviewed in the chart. Imagings Data: EXAM DESCRIPTION: US - Urinary Bladder - 08/25/2021 2:24 pm FINDINGS: Holcomb catheter is in place. Urinary bladder is fully contracted precluding any assessment of the bladder edwards. Volume was 3 milliliters. EXAM DESCRIPTION: RAD - Chest Pa And Lat (2 Views) - 08/25/2021 4:23 pm CLINICAL HISTORY: pleural effusion COMPARISON: Portable 08/24/2021, 06/28/2021 and 07/07/2021 TECHNIQUE: Frontal and lateral views of the chest were obtained. FINDINGS: Prominent baseline interstitial pattern noted. Sternotomy wires remain in place. No new tube or line. Bilateral costophrenic angle blunting is present right greater than left. Pleural effusions have been previously diagnosed and right-sided pleural fluid has decreased. Cardiomegaly has shown fractional improvement. Vasculature is slightly less pronounced. Trachea is midline. No pneumothorax. No acute bony finding noted. No aortic abnormality. IMPRESSION: Right-sided pleural fluid appears to be improved somewhat from prior day imaging. Cardiomegaly and vascular engorgement have improved but not resolved. Conclusions/Impression: OSCAR may be CRS CKD III with proteinuria -No NSAIDs -Continue Lasix Hypocalcemia -Consider Vitamin D HTN with CKD/ CHF -Continue Amlodipine and Catapres Diastolic CHF, A/C Pleural effusions -2g Na diet -Continue Lasix 20mg IV q6h DM II with CKD -RISS Moderate malnutrition -Continue Nepro through FT -Increase free water Anemia in chronic illness -Monitor H&H -Transfuse PRBC as needed BPH with LUTS -Continue Flomax -Continue Holcomb Catheter Case reviewed with Dr. Tobias
[2021-08-29] MEDS: ASPIRIN EC 81 MG TAB PO SCH (20:52)
[2021-08-29] MEDS: TRAZODONE 150 MG TAB PO SCH (21:00)
[2021-08-29 23:28] LABS: Immunoglobulin A 420 mg/dL (70-320); Immunoglobulin G 1055 mg/dL (600-1540); Immunoglobulin M 174 mg/dL (50-300)
[2021-08-30] MEDS: FUROSEMIDE 20 MG/ 2ML VIAL IV SCH ×4 (02:40→21:14)
[2021-08-30 06:02] LABS: Albumin 2.2 g/dL (3.4-5.0); Bilirubin Total 0.4 mg/dL (0.2-1.0); Potassium 4.7 mmol/L (3.5-5.1); Protein, Total 6.1 g/dL (6.4-8.2); Uric Acid 6.4 mg/dL (3.5-7.2)
[2021-08-30] MEDS: Pantoprazole (granules) 40 MG/BLIST PACKET FT SCH (06:16)
--- NOTE | 2021-08-30 07:29 | P.PN ---
Subjective Date of Service: 08/30/21 Primary Care Provider: Jatinder Chief Complaint: chronic Subjective: Improving (slight creatine improvement) Review of Systems 10-point ROS is otherwise unremarkable Physical Examination - Vital Signs Temperature: 97.5 F Blood Pressure: 159/72 Pulse: 63 Respirations: 18 Pulse Ox (%): 96 - Physical Exam General: Alert, In no apparent distress HEENT: Atraumatic, PERRLA, EOMI Neck: Supple, JVD not distended Respiratory: Clear to auscultation bilaterally, Normal air movement Cardiovascular: Regular rate/rhythm, Normal S1 S2 Gastrointestinal: Normal bowel sounds, No tenderness Musculoskeletal: No tenderness Integumentary: No rashes Neurological: Normal speech, Normal tone, Normal affect Lymphatics: No axilla or inguinal lymphadenopathy - Studies Microbiology Data (last 24 hrs): 08/24/21 10:24 Blood - Blood Aerobic Blood Culture - Final No growth in 5 days. 08/24/21 10:24 Blood - Blood Anaerobic Blood Culture - Final No growth in 5 days. 08/24/21 10:34 Blood - Blood Aerobic Blood Culture - Final No growth in 5 days. 08/24/21 10:34 Blood - Blood Anaerobic Blood Culture - Final No growth in 5 days. Assessment And Plan - Current Problems (Diagnosis) (1) Acute renal failure Current Visit: No Status: Acute Plan: Patient is not improving. We have been giving him blood rather than lasix. He did come in with pleural effusion Will consult Dr. Almanzar 08/30 Slight improvement. Will continue diuresis as per Dr. Almanzar. 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 Fierro is his regular hemooncologist. 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 08/29 Negative guiac. awaiting labs. 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 Start the patient on levaquin. 08/27 MDR pseudomonas. Will d/c levaquin and start him on meropenem. Day 2/5 of treatment Qualifiers: Urinary tract infection type: acute cystitis Hematuria presence: without hematuria Qualified Code(s): N30.00 - Acute cystitis without hematuria (4) Diabetes mellitus type II, uncontrolled Onset Date: 11/05/16 Current Visit: No Status: Chronic Plan: start low dose sliding scale and ada diet order Qualifiers: Coma presence: without coma (5) Hypertension Onset Date: 11/05/16 Current Visit: No Status: Chronic Plan: restart his home amlodipine. Will adjust as necessary Qualifiers: Hypertension type: primary hypertension Qualified Code(s): I10 - Essential (primary) hypertension (6) Chronic indwelling Hernandez catheter Current Visit: No Status: Chronic Plan: He has been bed bound. He had the hernandez replaced in the ER. His states he has difficulty urinating. Not sure how this is possible we can consult Dr. Best. (7) Pleural effusion Current Visit: Yes Status: Acute Plan: is improving with blood products. Most likely due to chf/anemia like response Discharge Plan: Home Plan to discharge in: 48 Hours - Code Status/Comfort Care Code Status Assessed: No Physician Review: Patient Assessed, Agree with Above Assessment and Plan Critical Care: No Time Spent Managing PTS Care (In Minutes): 20
[2021-08-30] MEDS: INSULIN -REGULAR HUMAN 50 UNIT/0.5 ML ML SQ SCH ×4 (07:30→21:30)
[2021-08-30] MEDS: LEVALBUTEROL 0.63 MG/3 ML NEB NEB PRN ×2 (07:40→13:26)
[2021-08-30] MEDS: SUCRALFATE 1GM/10ML UCUP FT SCH ×4 (08:15→21:11)
[2021-08-30 08:31] LABS: Magnesium 2.5
[2021-08-30] MEDS ORDERED: NA CHLORIDE 0.9% 100 ML ONE (08:38)
[2021-08-30] MEDS ORDERED: Meropenem 1000 MG/VIAL IV ONE (08:45)
[2021-08-30] MEDS: NEPRO 1,000 ML BOT FT SCH ×4 (09:00→21:00)
[2021-08-30] MEDS: AMLODIPINE 10 MG TAB FT SCH (09:07)
[2021-08-30] MEDS: DOCUSATE NA 100 MG CAP PO SCH ×2 (09:07→21:09)
[2021-08-30] MEDS: TAMSULOSIN 0.4 MG SR CAP PO SCH (09:07)
[2021-08-30] MEDS: GABAPENTIN 300 MG CAP FT SCH ×2 (09:07→21:09)
[2021-08-30] MEDS: CLOPIDOGREL 75 MG TABLET FT SCH (09:08)
[2021-08-30] MEDS: ESCITALOPRAM 20 MG TAB FT SCH (09:08)
[2021-08-30] MEDS: Meropenem 1,000 MG in NA CHLORIDE 0.9% 100 ML IV SCH ×2 (09:08→21:15)
--- NOTE | 2021-08-30 20:09 | P.PN ---
Date of Service: 08/30/21 Vital Signs Temp Pulse Resp BP Pulse Ox 98.5 F 75 20 148/60 H 96 08/30/21 16:00 08/30/21 16:00 08/30/21 16:00 08/30/21 16:00 08/30/21 16:00 Medications Amlodipine Besylate (Amlodipine 10 Mg Tab) 10 mg FT DAILY [facility] Last Admin: 08/30/21 09:07 Dose: 10 mg Documented by: Aspirin (Aspirin Ec 81 Mg Tab) 81 mg PO BEDTIME [facility] Last Admin: 08/29/21 20:52 Dose: 81 mg Documented by: Clonidine HCl (Clonidine 0.1 Mg/Patch) 0.1 mg TD EVERY 7TH DAY [facility] Last Admin: 08/27/21 13:03 Dose: 0.1 mg Documented by: Clopidogrel Bisulfate (Clopidogrel 75 Mg Tablet) 75 mg FT DAILY [facility] Last Admin: 08/30/21 09:08 Dose: 75 mg Documented by: Dextrose (D50w 25 Gm/50 Ml Syringe) 12.5 gm IV PRN PRN; Protocol PRN Reason: HYPOGLYCEMIA Docusate Sodium (Docusate Na 100 Mg Cap) 100 mg PO BID [facility] Last Admin: 08/30/21 09:07 Dose: 100 mg Documented by: Enteral Nutritional Formula (Nepro 1,000 Ml Bot) 237 ml FT QID [facility] Last Admin: 08/30/21 16:57 Dose: 237 ml Documented by: Escitalopram Oxalate (Escitalopram 20 Mg Tab) 40 mg FT DAILY [facility] Last Admin: 08/30/21 09:08 Dose: 40 mg Documented by: Furosemide (Furosemide 20 Mg/ 2ml Vial) 20 mg IV Q6H [facility] Last Admin: 08/30/21 15:00 Dose: 20 mg Documented by: Gabapentin (Gabapentin 300 Mg Cap) 300 mg FT BID [facility] Last Admin: 08/30/21 09:07 Dose: 300 mg Documented by: Glucagon (Glucagon 1 Mg/Vial) 1 mg IM 1X PRN; Protocol PRN Reason: HYPOGLYCEMIA Guaifenesin/Dextromethorphan (Guaifenesin/Dm 5 Ml Ucup) 15 ml PO QID PRN PRN Reason: COUGH Hydralazine HCl (Hydralazine Hcl 20 Mg/Ml Vial) 10 mg IV Q6HP PRN PRN Reason: HIGHBP Last Admin: 08/26/21 05:35 Dose: 10 mg Documented by: Meropenem 1,000 mg/ Sodium (Chloride) 100 mls @ 200 mls/hr IV Q12HR [facility] Last Admin: 08/30/21 09:08 Dose: 100 mls Documented by: Insulin Human Regular (Insulin -Regular Human 50 Unit/0.5 Ml Ml) 0 unit SQ ACHS [facility]; Protocol Last Admin: 08/30/21 16:18 Dose: Not Given Documented by: Levalbuterol HCl (Levalbuterol 0.63 Mg/3 Ml Neb) 0.63 mg NEB [id number] PRN PRN Reason: SHORTNESS OF BREATH Last Admin: 08/30/21 13:26 Dose: 0.63 mg Documented by: Ondansetron HCl (Ondansetron 4 Mg (Odt) Tab) 4 mg FT Q8H PRN PRN Reason: NAUSEA / VOMITING Pantoprazole Sodium (Pantoprazole (Granules) 40 Mg/Blist Packet) 40 mg FT DAILYAC [facility]; Protocol Last Admin: 08/30/21 06:16 Dose: 40 mg Documented by: Sucralfate (Sucralfate 1gm/10ml Ucup) 0.1 gm FT 0800,1200,1700,2000 [facility] Last Admin: 08/30/21 16:57 Dose: 0.1 gm Documented by: Tamsulosin HCl (Tamsulosin 0.4 Mg Sr Cap) 0.4 mg PO DAILY [facility] Last Admin: 08/30/21 09:07 Dose: 0.4 mg Documented by: Trazodone HCl (Trazodone 150 Mg Tab) 150 mg PO BEDTIME [facility] Last Admin: 08/29/21 21:00 Dose: 150 mg Documented by: Lab Results (last 24 hrs) 08/24/21 11:00: Magnesium 2.5 Microbiology Results 08/24/21 10:24 Blood - Blood Aerobic Blood Culture - Final No growth in 5 days. 08/24/21 10:24 Blood - Blood Anaerobic Blood Culture - Final No growth in 5 days. 08/24/21 10:34 Blood - Blood Aerobic Blood Culture - Final No growth in 5 days. 08/24/21 10:34 Blood - Blood Anaerobic Blood Culture - Final No growth in 5 days. 08/24/21 12:01 Clean Catch Urine [place] Count - Final >100,000 CFU/ML. 08/24/21 12:01 Clean Catch Urine - Final Pseudomonas Aeruginosa Assessment/ Plan: Nephrology No dyspnea No chest pain No acute events overnight Vitals, medications, blood work and imaging reviewed in the chart. General: In no apparent distress, Oriented x2, Cooperative HEENT: Atraumatic Neck: Supple Respiratory: Clear to auscultation bilaterally Cardiovascular: Regular rate/rhythm, Edema Gastrointestinal: Non-distended, No guarding Musculoskeletal: No clubbing, No contractures Integumentary: No rashes, No cyanosis Neurological: Normal speech External genitalia: Edema Blood work reviewed in the chart. Imagings Data: EXAM DESCRIPTION: US - Urinary Bladder - 08/25/2021 2:24 pm FINDINGS: Holcomb catheter is in place. Urinary bladder is fully contracted precluding any assessment of the bladder edwards. Volume was 3 milliliters. EXAM DESCRIPTION: RAD - Chest Pa And Lat (2 Views) - 08/25/2021 4:23 pm CLINICAL HISTORY: pleural effusion COMPARISON: Portable 08/24/2021, 06/28/2021 and 07/07/2021 TECHNIQUE: Frontal and lateral views of the chest were obtained. FINDINGS: Prominent baseline interstitial pattern noted. Sternotomy wires remain in place. No new tube or line. Bilateral costophrenic angle blunting is present right greater than left. Pleural effusions have been previously diagnosed and right-sided pleural fluid has decreased. Cardiomegaly has shown fractional improvement. Vasculature is slightly less pronounced. Trachea is midline. No pneumothorax. No acute bony finding noted. No aortic abnormality. IMPRESSION: Right-sided pleural fluid appears to be improved somewhat from prior day imaging. Cardiomegaly and vascular engorgement have improved but not resolved. Conclusions/Impression: OSCAR may be CRS CKD III with proteinuria -No NSAIDs -Continue Lasix Hypocalcemia -Consider Vitamin D HTN with CKD/ CHF -Continue Amlodipine and Catapres Diastolic CHF, A/C Pleural effusions -2g Na diet -Continue Lasix 20mg IV q6h DM II with CKD -RISS Moderate malnutrition -Continue Nepro through FT -Increase free water Anemia in chronic illness -Monitor H&H -Transfuse PRBC as needed BPH with LUTS -Continue Flomax -Continue Holcomb Catheter
[2021-08-30] MEDS: ASPIRIN EC 81 MG TAB PO SCH (21:00)
[2021-08-30] MEDS: TRAZODONE 150 MG TAB PO SCH (21:00)
[2021-08-31] MEDS: FUROSEMIDE 20 MG/ 2ML VIAL IV SCH ×4 (01:15→21:50)
[2021-08-31] MEDS: Pantoprazole (granules) 40 MG/BLIST PACKET FT SCH (05:36)
[2021-08-31 06:19] LABS: Absolute Lymphocytes (CBC) 0.7 K/uL (0.7-4.9); Hematocrit 25.3 % (39.6-49.0); Lymphocytes % 10.2 % (15.3-44.8); MPV 9.7 fL (7.6-11.3); RBC Red Blood Cell Count 3.43 M/uL (4.33-5.43)
[2021-08-31 06:37] LABS: Potassium 4.5 mmol/L (3.5-5.1); Uric Acid 6.6 mg/dL (3.5-7.2)
[2021-08-31] MEDS: INSULIN -REGULAR HUMAN 50 UNIT/0.5 ML ML SQ SCH ×4 (07:30→21:00)
--- NOTE | 2021-08-31 07:44 | P.PN ---
Subjective Date of Service: 08/31/21 Primary Care Provider: Jatinder Chief Complaint: chronic Subjective: No new changes Review of Systems 10-point ROS is otherwise unremarkable Physical Examination - Vital Signs Temperature: 97.2 F Blood Pressure: 167/74 Pulse: 65 Respirations: 18 Pulse Ox (%): 94 - Physical Exam General: Alert, In no apparent distress HEENT: Atraumatic, PERRLA, EOMI Neck: Supple, JVD not distended Respiratory: Clear to auscultation bilaterally, Normal air movement Cardiovascular: Regular rate/rhythm, Normal S1 S2 Gastrointestinal: Normal bowel sounds, No tenderness Musculoskeletal: No tenderness Integumentary: No rashes Neurological: Normal speech, Normal tone, Normal affect Lymphatics: No axilla or inguinal lymphadenopathy - Studies Laboratory Data (last 24 hrs) 08/24/21 11:00: Magnesium 2.5 Assessment And Plan - Current Problems (Diagnosis) (1) Acute renal failure Current Visit: No Status: Acute Plan: Patient is not improving. We have been giving him blood rather than lasix. He did come in with pleural effusion Will consult Dr. Almanzar 08/31 Slight improvement. Will continue diuresis as per Dr. Almanzar. 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 Fierro is his regular hemooncologist. 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 08/29 Negative guiac. awaiting labs. 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 Start the patient on levaquin. 08/27 MDR pseudomonas. Will d/c levaquin and start him on meropenem. Day 2/5 of treatment Qualifiers: Urinary tract infection type: acute cystitis Hematuria presence: without hematuria Qualified Code(s): N30.00 - Acute cystitis without hematuria (4) Diabetes mellitus type II, uncontrolled Onset Date: 11/05/16 Current Visit: No Status: Chronic Plan: start low dose sliding scale and ada diet order Qualifiers: Coma presence: without coma (5) Hypertension Onset Date: 11/05/16 Current Visit: No Status: Chronic Plan: restart his home amlodipine. Will adjust as necessary Qualifiers: Hypertension type: primary hypertension Qualified Code(s): I10 - Essential (primary) hypertension (6) Chronic indwelling Hernandez catheter Current Visit: No Status: Chronic Plan: He has been bed bound. He had the hernandez replaced in the ER. His states he has difficulty urinating. Not sure how this is possible we can consult Dr. Best. (7) Pleural effusion Current Visit: Yes Status: Acute Plan: is improving with blood products. Most likely due to chf/anemia like response Discharge Plan: Home Plan to discharge in: 48 Hours - Code Status/Comfort Care Code Status Assessed: No Physician Review: Patient Assessed, Agree with Above Assessment and Plan Critical Care: No Time Spent Managing PTS Care (In Minutes): 20
[2021-08-31 08:21] LABS: Anisocytosis 1+; Blood Morphology Comment NOTED (NOT SEEN); Platelet Estimate ADEQ; Poikilocytosis 1+
[2021-08-31 08:22] LABS: Ovalocytes 1+
[2021-08-31] MEDS: NEPRO 1,000 ML BOT FT SCH ×4 (08:29→21:00)
[2021-08-31] MEDS: SUCRALFATE 1GM/10ML UCUP FT SCH ×4 (08:30→20:00)
[2021-08-31] MEDS: Meropenem 1,000 MG in NA CHLORIDE 0.9% 100 ML IV SCH ×2 (08:31→21:52)
[2021-08-31] MEDS: DOCUSATE NA 100 MG CAP PO SCH ×2 (08:31→21:51)
[2021-08-31] MEDS: AMLODIPINE 10 MG TAB FT SCH (08:31)
[2021-08-31] MEDS: TAMSULOSIN 0.4 MG SR CAP PO SCH (08:31)
[2021-08-31] MEDS: GABAPENTIN 300 MG CAP FT SCH ×2 (08:38→21:50)
[2021-08-31] MEDS: ESCITALOPRAM 20 MG TAB FT SCH (08:38)
[2021-08-31] MEDS: CLOPIDOGREL 75 MG TABLET FT SCH (08:38)
--- NOTE | 2021-08-31 10:29 | P.PN ---
Date of Service: 08/31/21 Vital Signs Temp Pulse Resp BP Pulse Ox 99.1 F 66 20 150/69 H 95 08/31/21 08:00 08/31/21 08:00 08/31/21 08:00 08/31/21 08:38 08/31/21 08:00 Medications Amlodipine Besylate (Amlodipine 10 Mg Tab) 10 mg FT DAILY [facility] Last Admin: 08/31/21 08:31 Dose: 10 mg Documented by: Aspirin (Aspirin Ec 81 Mg Tab) 81 mg PO BEDTIME [facility] Last Admin: 08/30/21 21:00 Dose: 81 mg Documented by: Clonidine HCl (Clonidine 0.1 Mg/Patch) 0.1 mg TD EVERY 7TH DAY [facility] Last Admin: 08/27/21 13:03 Dose: 0.1 mg Documented by: Clopidogrel Bisulfate (Clopidogrel 75 Mg Tablet) 75 mg FT DAILY [facility] Last Admin: 08/31/21 08:38 Dose: 75 mg Documented by: Dextrose (D50w 25 Gm/50 Ml Syringe) 12.5 gm IV PRN PRN; Protocol PRN Reason: HYPOGLYCEMIA Docusate Sodium (Docusate Na 100 Mg Cap) 100 mg PO BID [facility] Last Admin: 08/31/21 08:31 Dose: 100 mg Documented by: Enteral Nutritional Formula (Nepro 1,000 Ml Bot) 237 ml FT QID [facility] Last Admin: 08/31/21 08:29 Dose: 237 ml Documented by: Escitalopram Oxalate (Escitalopram 20 Mg Tab) 40 mg FT DAILY [facility] Last Admin: 08/31/21 08:38 Dose: 40 mg Documented by: Furosemide (Furosemide 20 Mg/ 2ml Vial) 20 mg IV Q6H [facility] Last Admin: 08/31/21 08:38 Dose: 20 mg Documented by: Gabapentin (Gabapentin 300 Mg Cap) 300 mg FT BID [facility] Last Admin: 08/31/21 08:38 Dose: 300 mg Documented by: Glucagon (Glucagon 1 Mg/Vial) 1 mg IM 1X PRN; Protocol PRN Reason: HYPOGLYCEMIA Guaifenesin/Dextromethorphan (Guaifenesin/Dm 5 Ml Ucup) 15 ml PO QID PRN PRN Reason: COUGH Hydralazine HCl (Hydralazine Hcl 20 Mg/Ml Vial) 10 mg IV Q6HP PRN PRN Reason: HIGHBP Last Admin: 08/26/21 05:35 Dose: 10 mg Documented by: Meropenem 1,000 mg/ Sodium (Chloride) 100 mls @ 200 mls/hr IV Q12HR [facility] Last Admin: 08/31/21 08:31 Dose: 100 mls Documented by: Dextrose/Water (Dextrose In Water (1-Liter)) 1,000 mls @ 100 mls/hr IV .Q10H [facility] Stop: 09/01/21 06:59 Insulin Human Regular (Insulin -Regular Human 50 Unit/0.5 Ml Ml) 0 unit SQ ACHS [facility]; Protocol Last Admin: 08/31/21 07:30 Dose: Not Given Documented by: Levalbuterol HCl (Levalbuterol 0.63 Mg/3 Ml Neb) 0.63 mg NEB [id number] PRN PRN Reason: SHORTNESS OF BREATH Last Admin: 08/30/21 13:26 Dose: 0.63 mg Documented by: Ondansetron HCl (Ondansetron 4 Mg (Odt) Tab) 4 mg FT Q8H PRN PRN Reason: NAUSEA / VOMITING Pantoprazole Sodium (Pantoprazole (Granules) 40 Mg/Blist Packet) 40 mg FT DAILYAC [facility]; Protocol Last Admin: 08/31/21 05:36 Dose: 40 mg Documented by: Sucralfate (Sucralfate 1gm/10ml Ucup) 0.1 gm FT 0800,1200,1700,2000 [facility] Last Admin: 08/31/21 08:30 Dose: 0.1 gm Documented by: Tamsulosin HCl (Tamsulosin 0.4 Mg Sr Cap) 0.4 mg PO DAILY [facility] Last Admin: 08/31/21 08:31 Dose: 0.4 mg Documented by: Trazodone HCl (Trazodone 150 Mg Tab) 150 mg PO BEDTIME [facility] Last Admin: 08/30/21 21:00 Dose: 150 mg Documented by: Microbiology Results 08/24/21 10:24 Blood - Blood Aerobic Blood Culture - Final No growth in 5 days. 08/24/21 10:24 Blood - Blood Anaerobic Blood Culture - Final No growth in 5 days. 08/24/21 10:34 Blood - Blood Aerobic Blood Culture - Final No growth in 5 days. 08/24/21 10:34 Blood - Blood Anaerobic Blood Culture - Final No growth in 5 days. 08/24/21 12:01 Clean Catch Urine [place] Count - Final >100,000 CFU/ML. 08/24/21 12:01 Clean Catch Urine - Final Pseudomonas Aeruginosa Assessment/ Plan: Nephrology No dyspnea No chest pain No acute events overnight Vitals, medications, blood work and imaging reviewed in the chart. General: In no apparent distress, Oriented x2, Cooperative HEENT: Atraumatic Neck: Supple Respiratory: Clear to auscultation bilaterally Cardiovascular: Regular rate/rhythm, Edema Gastrointestinal: Non-distended, No guarding Musculoskeletal: No clubbing, No contractures Integumentary: No rashes, No cyanosis Neurological: Normal speech External genitalia: Edema Blood work reviewed in the chart. Imagings Data: EXAM DESCRIPTION: US - Urinary Bladder - 08/25/2021 2:24 pm FINDINGS: Holcomb catheter is in place. Urinary bladder is fully contracted precluding any assessment of the bladder edwards. Volume was 3 milliliters. EXAM DESCRIPTION: RAD - Chest Pa And Lat (2 Views) - 08/25/2021 4:23 pm CLINICAL HISTORY: pleural effusion COMPARISON: Portable 08/24/2021, 06/28/2021 and 07/07/2021 TECHNIQUE: Frontal and lateral views of the chest were obtained. FINDINGS: Prominent baseline interstitial pattern noted. Sternotomy wires remain in place. No new tube or line. Bilateral costophrenic angle blunting is present right greater than left. Pleural effusions have been previously diagnosed and right-sided pleural fluid has decreased. Cardiomegaly has shown fractional improvement. Vasculature is slightly less pronounced. Trachea is midline. No pneumothorax. No acute bony finding noted. No aortic abnormality. IMPRESSION: Right-sided pleural fluid appears to be improved somewhat from prior day imaging. Cardiomegaly and vascular engorgement have improved but not resolved. Conclusions/Impression: OSCAR may be CRS CKD III with proteinuria -No NSAIDs -Continue Lasix -Start D5W X2L due to worsening uremia Hypocalcemia -Consider Vitamin D HTN with CKD/ CHF -Continue Amlodipine and Catapres Diastolic CHF, A/C Pleural effusions -2g Na diet -Continue Lasix 20mg IV q6h DM II with CKD -RISS Moderate malnutrition -Continue Nepro through FT -Continue free water through PEG Anemia in chronic illness -Monitor H&H -Transfuse PRBC as needed BPH with LUTS -Continue Flomax -Continue Holcomb Catheter Case reviewed with Dr. Thorne
[2021-08-31] MEDS: D5W 1,000 ML IV SCH ×2 (12:37→21:00)
[2021-08-31] MEDS: TRAZODONE 150 MG TAB PO SCH (21:50)
[2021-08-31] MEDS: ASPIRIN EC 81 MG TAB PO SCH (21:51)
[2021-09-01] MEDS: GUAIFENESIN/DM 5 ML UCUP PO PRN (00:05)
[2021-09-01] MEDS: FUROSEMIDE 20 MG/ 2ML VIAL IV SCH ×4 (02:44→20:30)
[2021-09-01 06:22] LABS: Absolute Lymphocytes (CBC) 0.8 K/uL (0.7-4.9); Hematocrit 25.1 % (39.6-49.0); Lymphocytes % 10.3 % (15.3-44.8); RBC Red Blood Cell Count 3.42 M/uL (4.33-5.43)
[2021-09-01] MEDS: Pantoprazole (granules) 40 MG/BLIST PACKET FT SCH (06:30)
[2021-09-01 06:37] LABS: Potassium 4.2 mmol/L (3.5-5.1)
[2021-09-01] MEDS: INSULIN -REGULAR HUMAN 50 UNIT/0.5 ML ML SQ SCH ×4 (07:30→21:00)
[2021-09-01] MEDS: Meropenem 1,000 MG in NA CHLORIDE 0.9% 100 ML IV SCH ×2 (08:15→20:29)
[2021-09-01] MEDS: NEPRO 1,000 ML BOT FT SCH ×4 (08:15→21:00)
[2021-09-01] MEDS: GABAPENTIN 300 MG CAP FT SCH ×2 (08:15→20:28)
[2021-09-01] MEDS: SUCRALFATE 1GM/10ML UCUP FT SCH ×4 (08:15→20:00)
[2021-09-01] MEDS: AMLODIPINE 10 MG TAB FT SCH (08:16)
[2021-09-01] MEDS: DOCUSATE NA 100 MG CAP PO SCH ×2 (08:16→20:29)
[2021-09-01] MEDS: CLOPIDOGREL 75 MG TABLET FT SCH (08:16)
[2021-09-01] MEDS: ESCITALOPRAM 20 MG TAB FT SCH (08:16)
[2021-09-01] MEDS: TAMSULOSIN 0.4 MG SR CAP PO SCH (08:16)
--- NOTE | 2021-09-01 12:06 | P.PN ---
Subjective Date of Service: 09/01/21 Primary Care Provider: Jatinder Chief Complaint: chronic Subjective: No new changes Review of Systems 10-point ROS is otherwise unremarkable Physical Examination - Vital Signs Temperature: 98.2 F Blood Pressure: 146/69 Pulse: 63 Respirations: 15 Pulse Ox (%): 97 - Physical Exam General: Alert, In no apparent distress HEENT: Atraumatic, PERRLA, EOMI Neck: Supple, JVD not distended Respiratory: Clear to auscultation bilaterally, Normal air movement Cardiovascular: Regular rate/rhythm, Normal S1 S2 Gastrointestinal: Normal bowel sounds, No tenderness Musculoskeletal: No tenderness Integumentary: No rashes Neurological: Normal speech, Normal tone, Normal affect Lymphatics: No axilla or inguinal lymphadenopathy Assessment And Plan - Current Problems (Diagnosis) (1) Acute renal failure Current Visit: No Status: Acute Plan: Patient is not improving. We have been giving him blood rather than lasix. He did come in with pleural effusion Will consult Dr. Almanzar 09/01 worsening Will discuss with Dr. 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 Fierro is his regular hemooncologist. 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 08/29 Negative guiac. awaiting labs. 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 Start the patient on levaquin. 08/27 MDR pseudomonas. Will d/c levaquin and start him on meropenem. Day 2/5 of treatment Qualifiers: Urinary tract infection type: acute cystitis Hematuria presence: without hematuria Qualified Code(s): N30.00 - Acute cystitis without hematuria (4) Diabetes mellitus type II, uncontrolled Onset Date: 11/05/16 Current Visit: No Status: Chronic Plan: start low dose sliding scale and ada diet order Qualifiers: Coma presence: without coma (5) Hypertension Onset Date: 11/05/16 Current Visit: No Status: Chronic Plan: restart his home amlodipine. Will adjust as necessary Qualifiers: Hypertension type: primary hypertension Qualified Code(s): I10 - Essential (primary) hypertension (6) Chronic indwelling Hernandez catheter Current Visit: No Status: Chronic Plan: He has been bed bound. He had the hernandez replaced in the ER. His states he has difficulty urinating. Not sure how this is possible we can consult Dr. Best. (7) Pleural effusion Current Visit: Yes Status: Acute Plan: is improving with blood products. Most likely due to chf/anemia like response Discharge Plan: Home Plan to discharge in: 48 Hours Physician Review: Patient Assessed, Agree with Above Assessment and Plan Critical Care: No Time Spent Managing PTS Care (In Minutes): 25
[2021-09-01] MEDS: ASPIRIN EC 81 MG TAB PO SCH (20:28)
[2021-09-01] MEDS: TRAZODONE 150 MG TAB PO SCH (20:31)
[2021-09-01] MEDS ORDERED: NA CHLORIDE 0.9% 250 ML ONE (20:39)
--- NOTE | 2021-09-01 22:21 | P.PN ---
Date of Service: 09/01/21 Vital Signs Temp Pulse Resp BP Pulse Ox 98.7 F 72 17 146/72 H 95 09/01/21 20:00 09/01/21 20:30 09/01/21 20:00 09/01/21 20:30 09/01/21 20:00 Medications Amiloride HCl (Amiloride Hcl 5 Mg Tablet) 10 mg PO BID [facility] Amlodipine Besylate (Amlodipine 10 Mg Tab) 10 mg FT DAILY [facility] Last Admin: 09/01/21 08:16 Dose: 10 mg Documented by: Aspirin (Aspirin Ec 81 Mg Tab) 81 mg PO BEDTIME [facility] Last Admin: 09/01/21 20:28 Dose: 81 mg Documented by: Clonidine HCl (Clonidine 0.1 Mg/Patch) 0.1 mg TD EVERY 7TH DAY [facility] Last Admin: 08/27/21 13:03 Dose: 0.1 mg Documented by: Clopidogrel Bisulfate (Clopidogrel 75 Mg Tablet) 75 mg FT DAILY [facility] Last Admin: 09/01/21 08:16 Dose: 75 mg Documented by: Dextrose (D50w 25 Gm/50 Ml Syringe) 12.5 gm IV PRN PRN; Protocol PRN Reason: HYPOGLYCEMIA Docusate Sodium (Docusate Na 100 Mg Cap) 100 mg PO BID [facility] Last Admin: 09/01/21 20:29 Dose: 100 mg Documented by: Enteral Nutritional Formula (Nepro 1,000 Ml Bot) 237 ml FT QID [facility] Last Admin: 09/01/21 17:00 Dose: 237 ml Documented by: Escitalopram Oxalate (Escitalopram 20 Mg Tab) 40 mg FT DAILY [facility] Last Admin: 09/01/21 08:16 Dose: 40 mg Documented by: Furosemide (Furosemide 20 Mg/ 2ml Vial) 20 mg IV Q6H [facility] Last Admin: 09/01/21 20:30 Dose: 20 mg Documented by: Gabapentin (Gabapentin 300 Mg Cap) 300 mg FT BID [facility] Last Admin: 09/01/21 20:28 Dose: 300 mg Documented by: Glucagon (Glucagon 1 Mg/Vial) 1 mg IM 1X PRN; Protocol PRN Reason: HYPOGLYCEMIA Guaifenesin/Dextromethorphan (Guaifenesin/Dm 5 Ml Ucup) 15 ml PO QID PRN PRN Reason: COUGH Last Admin: 09/01/21 00:05 Dose: 15 ml Documented by: Hydralazine HCl (Hydralazine Hcl 20 Mg/Ml Vial) 10 mg IV Q6HP PRN PRN Reason: HIGHBP Last Admin: 08/26/21 05:35 Dose: 10 mg Documented by: Meropenem 1,000 mg/ Sodium (Chloride) 100 mls @ 200 mls/hr IV Q12HR [facility] Last Admin: 09/01/21 20:29 Dose: 100 mls Documented by: Insulin Human Regular (Insulin -Regular Human 50 Unit/0.5 Ml Ml) 0 unit SQ ACHS [facility]; Protocol Last Admin: 09/01/21 16:30 Dose: Not Given Documented by: Levalbuterol HCl (Levalbuterol 0.63 Mg/3 Ml Neb) 0.63 mg NEB [id number] PRN PRN Reason: SHORTNESS OF BREATH Last Admin: 08/30/21 13:26 Dose: 0.63 mg Documented by: Ondansetron HCl (Ondansetron 4 Mg (Odt) Tab) 4 mg FT Q8H PRN PRN Reason: NAUSEA / VOMITING Pantoprazole Sodium (Pantoprazole (Granules) 40 Mg/Blist Packet) 40 mg FT DAILYAC [facility]; Protocol Last Admin: 09/01/21 06:30 Dose: 40 mg Documented by: Sucralfate (Sucralfate 1gm/10ml Ucup) 0.1 gm FT 0800,1200,1700,2000 [facility] Last Admin: 09/01/21 20:00 Dose: 0.1 gm Documented by: Tamsulosin HCl (Tamsulosin 0.4 Mg Sr Cap) 0.4 mg PO DAILY [facility] Last Admin: 09/01/21 08:16 Dose: 0.4 mg Documented by: Trazodone HCl (Trazodone 150 Mg Tab) 150 mg PO BEDTIME [facility] Last Admin: 09/01/21 20:31 Dose: 150 mg Documented by: Microbiology Results 08/24/21 10:24 Blood - Blood Aerobic Blood Culture - Final No growth in 5 days. 08/24/21 10:24 Blood - Blood Anaerobic Blood Culture - Final No growth in 5 days. 08/24/21 10:34 Blood - Blood Aerobic Blood Culture - Final No growth in 5 days. 08/24/21 10:34 Blood - Blood Anaerobic Blood Culture - Final No growth in 5 days. 08/24/21 12:01 Clean Catch Urine [place] Count - Final >100,000 CFU/ML. 08/24/21 12:01 Clean Catch Urine - Final Pseudomonas Aeruginosa Assessment/ Plan: Nephrology No dyspnea No chest pain Persistent edema No acute events overnight Vitals, medications, blood work and imaging reviewed in the chart. General: In no apparent distress, Oriented x2, Cooperative HEENT: Atraumatic Neck: Supple Respiratory: Clear to auscultation bilaterally Cardiovascular: Regular rate/rhythm, Edema Gastrointestinal: Non-distended, No guarding Musculoskeletal: No clubbing, No contractures Integumentary: No rashes, No cyanosis Neurological: Normal speech External genitalia: Edema Blood work reviewed in the chart. Imagings Data: EXAM DESCRIPTION: US - Urinary Bladder - 08/25/2021 2:24 pm FINDINGS: Holcomb catheter is in place. Urinary bladder is fully contracted precluding any assessment of the bladder edwards. Volume was 3 milliliters. EXAM DESCRIPTION: RAD - Chest Pa And Lat (2 Views) - 08/25/2021 4:23 pm CLINICAL HISTORY: pleural effusion COMPARISON: Portable 08/24/2021, 06/28/2021 and 07/07/2021 TECHNIQUE: Frontal and lateral views of the chest were obtained. FINDINGS: Prominent baseline interstitial pattern noted. Sternotomy wires remain in place. No new tube or line. Bilateral costophrenic angle blunting is present right greater than left. Pleural effusions have been previously diagnosed and right-sided pleural fluid has decreased. Cardiomegaly has shown fractional improvement. Vasculature is slightly less pronounced. Trachea is midline. No pneumothorax. No acute bony finding noted. No aortic abnormality. IMPRESSION: Right-sided pleural fluid appears to be improved somewhat from prior day imaging. Cardiomegaly and vascular engorgement have improved but not resolved. Conclusions/Impression: OSACR may be CRS CKD III with proteinuria -No NSAIDs -Continue Lasix Hypocalcemia -Consider Vitamin D HTN with CKD/ CHF -Continue Amlodipine and Catapres Diastolic CHF, A/C Pleural effusions -2g Na diet -Continue Lasix 20mg IV q6h -Start Amiloride BID DM II with CKD -RISS Moderate malnutrition -Continue Nepro through FT -Continue free water through PEG Anemia in chronic illness -Monitor H&H -Transfuse PRBC as needed BPH with LUTS -Continue Flomax -Continue Holcomb Catheter
[2021-09-01] MEDS: AMILORIDE HCL 5 MG TABLET PO SCH (22:30)
[2021-09-02] MEDS: FUROSEMIDE 20 MG/ 2ML VIAL IV SCH ×4 (02:00→20:42)
[2021-09-02] MEDS: Pantoprazole (granules) 40 MG/BLIST PACKET FT SCH (06:30)
[2021-09-02 06:33] LABS: Absolute Lymphocytes (CBC) 0.7 K/uL (0.7-4.9); Hematocrit 27.2 % (39.6-49.0); Lymphocytes % 9.8 % (15.3-44.8); MPV 9.5 fL (7.6-11.3)
[2021-09-02 06:53] LABS: Potassium 3.9 mmol/L (3.5-5.1)
[2021-09-02 07:03] LABS: Albumin 2.1 g/dL (3.4-5.0); Bilirubin Direct 0.1 mg/dL (0-0.2); Bilirubin Total 0.3 mg/dL (0.2-1.0); Protein, Total 6.1 g/dL (6.4-8.2); Uric Acid 6.9 mg/dL (3.5-7.2)
[2021-09-02] MEDS: INSULIN -REGULAR HUMAN 50 UNIT/0.5 ML ML SQ SCH ×4 (07:30→20:44)
[2021-09-02] MEDS: SUCRALFATE 1GM/10ML UCUP FT SCH ×4 (08:00→20:00)
[2021-09-02] MEDS: TAMSULOSIN 0.4 MG SR CAP PO SCH (08:22)
[2021-09-02] MEDS: DOCUSATE NA 100 MG CAP PO SCH ×2 (08:22→20:43)
[2021-09-02] MEDS: ESCITALOPRAM 20 MG TAB FT SCH (08:22)
[2021-09-02] MEDS: CLOPIDOGREL 75 MG TABLET FT SCH (08:22)
[2021-09-02] MEDS: GABAPENTIN 300 MG CAP FT SCH ×2 (08:22→20:43)
[2021-09-02] MEDS: AMLODIPINE 10 MG TAB FT SCH (08:23)
[2021-09-02] MEDS: NEPRO 1,000 ML BOT FT SCH ×4 (08:23→21:00)
[2021-09-02] MEDS ORDERED: NA CHLORIDE 0.9% 0 ML ONE (08:31)
[2021-09-02] MEDS: Meropenem 1,000 MG in NA CHLORIDE 0.9% 100 ML IV SCH ×2 (09:08→20:42)
[2021-09-02] MEDS: AMILORIDE HCL 5 MG TABLET PO SCH ×2 (09:14→20:43)
--- NOTE | 2021-09-02 13:02 | P.PN ---
Subjective Date of Service: 09/02/21 Primary Care Provider: Jatinder Chief Complaint: chronic Subjective: No new changes, Tolerating diet Physical Examination - Vital Signs Temperature: 97.6 F Blood Pressure: 164/71 Pulse: 66 Respirations: 16 Pulse Ox (%): 97 Assessment And Plan - Code Status/Comfort Care Code Status: Full Code Physician Review: Patient Assessed, Agree with Above Assessment and Plan Physician Review Additional Text: 09/02/21 12:54 - Physical Exam General: Alert, frail, middle-aged but chronically ill looking HEENT: Atraumatic, PERRLA, EOMI Neck: Supple, JVD not distended Respiratory: Decreased breath sounds at bases, mild bibasilar crepitus Cardiovascular: Regular rate/rhythm, Normal S1 S2 Gastrointestinal: Normal bowel sounds, No tenderness, mild ascites by shifting dullness Musculoskeletal: No tenderness, no pedal edema GUindwelling Holcomb, large penile and scrotal edema Integumentary: No rashes Neurological: Normal speech, Normal tone, Normal affect Lymphatics: No axilla or inguinal lymphadenopathy Impression Recurrent bilateral pleural effusion Acute kidney injury on CKD Nephrotic range proteinuria Hypertension Scrotal edema Presumed Multiple myeloma -with abnormal SPEP/abnormal lambda kappa level, hypoalbuminemia, nephrotic range proteinuria unexplained anemia MDR Pseudomonas UTIcompleted antibiotics History of neurogenic bladderindwelling Foleystatus post change in ER History of aplastic anemiafollows with Dr. Fierrooncology at outpatient Diabetes mellitus Plan Given mild fluid overload with scrotal edema, will start Albumin IV doses with Lasix to mobilize fluid removal from interstitial space Abnormal kappa lambda ratio as well as significant proteinuria of greater than 13 g/g, high suspicion for multiple myeloma We discussed with family regarding possibility of renal biopsy on Saturday Strict glycemic control, continue insulin regimen Continue to leave Holcomb Continue meropenem for UTI Continue blood pressure regimen Creatinine slightly worsening, follow with Albumin diuresis Nephrology team on service Time Spent Managing PTS Care (In Minutes): 35
[2021-09-02] MEDS: ALBUMIN HUMAN 25% 100 ML IV SCH ×2 (14:15→20:41)
[2021-09-02 15:14] LABS: Urine Appearance CLOUDY (Clear); Urine Bilirubin NEGATIVE (Negative); Urine Blood 2+ (Negative); Urine Color YELLOW (Yellow); Urine Glucose TRACE (Negative); Urine Protein 3+ (Negative); Urine Specific Gravity 1.015 (1.005-1.030); Urine Urobilinogen 0.2 mg/dL (0.2-1.0); Urine pH 6.5 (5.0-7.0)
[2021-09-02 15:22] LABS: Urine Bacteria <20 /HPF (NONE SEEN)
[2021-09-02 15:23] LABS: Urine Yeast PRESENT (NONE SEEN)
--- NOTE | 2021-09-02 19:16 | P.PN ---
Date of Service: 09/02/21 Vital Signs Temp Pulse Resp BP Pulse Ox 97.5 F 70 16 162/72 H 99 09/02/21 16:00 09/02/21 16:00 09/02/21 16:00 09/02/21 16:00 09/02/21 16:00 Medications Amiloride HCl (Amiloride Hcl 5 Mg Tablet) 10 mg PO BID [facility] Last Admin: 09/02/21 09:14 Dose: 10 mg Documented by: Amlodipine Besylate (Amlodipine 10 Mg Tab) 10 mg FT DAILY [facility] Last Admin: 09/02/21 08:23 Dose: 10 mg Documented by: Aspirin (Aspirin Ec 81 Mg Tab) 81 mg PO BEDTIME [facility] Last Admin: 09/01/21 20:28 Dose: 81 mg Documented by: Clonidine HCl (Clonidine 0.1 Mg/Patch) 0.1 mg TD EVERY 7TH DAY [facility] Last Admin: 08/27/21 13:03 Dose: 0.1 mg Documented by: Clopidogrel Bisulfate (Clopidogrel 75 Mg Tablet) 75 mg FT DAILY [facility] Last Admin: 09/02/21 08:22 Dose: 75 mg Documented by: Dextrose (D50w 25 Gm/50 Ml Syringe) 12.5 gm IV PRN PRN; Protocol PRN Reason: HYPOGLYCEMIA Docusate Sodium (Docusate Na 100 Mg Cap) 100 mg PO BID [facility] Last Admin: 09/02/21 08:22 Dose: 100 mg Documented by: Enteral Nutritional Formula (Nepro 1,000 Ml Bot) 237 ml FT QID [facility] Last Admin: 09/02/21 17:00 Dose: 237 ml Documented by: Escitalopram Oxalate (Escitalopram 20 Mg Tab) 40 mg FT DAILY [facility] Last Admin: 09/02/21 08:22 Dose: 40 mg Documented by: Furosemide (Furosemide 20 Mg/ 2ml Vial) 40 mg IV Q6H [facility] Last Admin: 09/02/21 14:00 Dose: 40 mg Documented by: Gabapentin (Gabapentin 300 Mg Cap) 300 mg FT BID [facility] Last Admin: 09/02/21 08:22 Dose: 300 mg Documented by: Glucagon (Glucagon 1 Mg/Vial) 1 mg IM 1X PRN; Protocol PRN Reason: HYPOGLYCEMIA Guaifenesin/Dextromethorphan (Guaifenesin/Dm 5 Ml Ucup) 15 ml PO QID PRN PRN Reason: COUGH Last Admin: 09/01/21 00:05 Dose: 15 ml Documented by: Hydralazine HCl (Hydralazine Hcl 20 Mg/Ml Vial) 10 mg IV Q6HP PRN PRN Reason: HIGHBP Last Admin: 08/26/21 05:35 Dose: 10 mg Documented by: Meropenem 1,000 mg/ Sodium (Chloride) 100 mls @ 200 mls/hr IV Q12HR [facility] Last Admin: 09/02/21 09:08 Dose: 100 mls Documented by: Albumin Human (Albumin 25%) 100 mls @ 100 mls/hr IV Q6H [facility] Stop: 09/04/21 08:59 Last Admin: 09/02/21 14:15 Dose: 100 mls Documented by: Insulin Human Regular (Insulin -Regular Human 50 Unit/0.5 Ml Ml) 0 unit SQ ACHS [facility]; Protocol Last Admin: 09/02/21 16:30 Dose: Not Given Documented by: Levalbuterol HCl (Levalbuterol 0.63 Mg/3 Ml Neb) 0.63 mg NEB [id number] PRN PRN Reason: SHORTNESS OF BREATH Last Admin: 08/30/21 13:26 Dose: 0.63 mg Documented by: Ondansetron HCl (Ondansetron 4 Mg (Odt) Tab) 4 mg FT Q8H PRN PRN Reason: NAUSEA / VOMITING Pantoprazole Sodium (Pantoprazole (Granules) 40 Mg/Blist Packet) [facility]; [facility] Last Admin: 09/02/21 06:30 Dose: 40 mg Documented by: Sucralfate (Sucralfate 1gm/10ml Ucup) 0.1 gm FT 0800,1200,1700,2000 [facility] Last Admin: 09/02/21 17:00 Dose: 0.1 gm Documented by: Tamsulosin HCl (Tamsulosin 0.4 Mg Sr Cap) 0.4 mg PO DAILY [facility] Last Admin: 09/02/21 08:22 Dose: 0.4 mg Documented by: Trazodone HCl (Trazodone 150 Mg Tab) 150 mg PO BEDTIME [facility] Last Admin: 09/01/21 20:31 Dose: 150 mg Documented by: Microbiology Results 08/24/21 10:24 Blood - Blood Aerobic Blood Culture - Final No growth in 5 days. 08/24/21 10:24 Blood - Blood Anaerobic Blood Culture - Final No growth in 5 days. 08/24/21 10:34 Blood - Blood Aerobic Blood Culture - Final No growth in 5 days. 08/24/21 10:34 Blood - Blood Anaerobic Blood Culture - Final No growth in 5 days. 08/24/21 12:01 Clean Catch Urine [place] Count - Final >100,000 CFU/ML. 08/24/21 12:01 Clean Catch Urine - Final Pseudomonas Aeruginosa Assessment/ Plan: Nephrology No dyspnea No chest pain Persistent edema including scrotal edema No acute events overnight Vitals, medications, blood work and imaging reviewed in the chart. General: In no apparent distress, Oriented x2, Cooperative HEENT: Atraumatic Neck: Supple Respiratory: Clear to auscultation bilaterally Cardiovascular: Regular rate/rhythm, Edema Gastrointestinal: Non-distended, No guarding Musculoskeletal: No clubbing, No contractures Integumentary: No rashes, No cyanosis Neurological: Normal speech External genitalia: Edema Blood work reviewed in the chart. Imagings Data: EXAM DESCRIPTION: US - Urinary Bladder - 08/25/2021 2:24 pm FINDINGS: Holcomb catheter is in place. Urinary bladder is fully contracted precluding any assessment of the bladder edwards. Volume was 3 milliliters. EXAM DESCRIPTION: RAD - Chest Pa And Lat (2 Views) - 08/25/2021 4:23 pm CLINICAL HISTORY: pleural effusion COMPARISON: Portable 08/24/2021, 06/28/2021 and 07/07/2021 TECHNIQUE: Frontal and lateral views of the chest were obtained. FINDINGS: Prominent baseline interstitial pattern noted. Sternotomy wires remain in place. No new tube or line. Bilateral costophrenic angle blunting is present right greater than left. Pleural effusions have been previously diagnosed and right-sided pleural fluid has decreased. Cardiomegaly has shown fractional improvement. Vasculature is slightly less pronounced. Trachea is midline. No pneumothorax. No acute bony finding noted. No aortic abnormality. IMPRESSION: Right-sided pleural fluid appears to be improved somewhat from prior day imaging. Cardiomegaly and vascular engorgement have improved but not resolved. Conclusions/Impression: OSCAR may be CRS CKD III with proteinuria -No NSAIDs -Increase Lasix Hypocalcemia -Consider Vitamin D HTN with CKD/ CHF -Continue Amlodipine and Catapres Diastolic CHF, A/C Pleural effusions -2g Na diet -Continue Lasix 20mg IV q6h -Continue Amiloride BID DM II with CKD -RISS Moderate malnutrition -Continue Nepro through FT -Continue free water through PEG Anemia in chronic illness -Monitor H&H -Transfuse PRBC as needed BPH with LUTS -Continue Flomax -Continue Holcomb Catheter
[2021-09-02] MEDS ORDERED: DIPHENHYDRAMINE 50 MG/ML VIAL IV ONE (19:49)
[2021-09-02] MEDS: ASPIRIN EC 81 MG TAB PO SCH (20:43)
[2021-09-02] MEDS: TRAZODONE 150 MG TAB PO SCH (20:45)
[2021-09-03] MEDS: HYDRALAZINE HCL 20 MG/ML VIAL IV PRN (00:09)
[2021-09-03] MEDS: FUROSEMIDE 20 MG/ 2ML VIAL IV SCH ×4 (00:57→17:02)
[2021-09-03] MEDS: ALBUMIN HUMAN 25% 100 ML IV SCH ×4 (02:00→20:14)
[2021-09-03 05:49] LABS: Absolute Lymphocytes (CBC) 0.8 K/uL (0.7-4.9); Lymphocytes % 12.6 % (15.3-44.8); MPV 9.8 fL (7.6-11.3); RBC Red Blood Cell Count 3.25 M/uL (4.33-5.43)
[2021-09-03 06:03] LABS: Albumin 2.2 g/dL (3.4-5.0); Bilirubin Total 0.4 mg/dL (0.2-1.0); Potassium 4.4 mmol/L (3.5-5.1); Protein, Total 5.7 g/dL (6.4-8.2); Uric Acid 7.4 mg/dL (3.5-7.2)
[2021-09-03 06:15] LABS: Urine Appearance CLOUDY (Clear); Urine Bilirubin NEGATIVE (Negative); Urine Blood 1+ (Negative); Urine Color YELLOW (Yellow); Urine Glucose NEGATIVE (Negative); Urine Protein 3+ (Negative); Urine Urobilinogen 0.2 mg/dL (0.2-1.0)
[2021-09-03] MEDS: Pantoprazole (granules) 40 MG/BLIST PACKET FT SCH (06:30)
[2021-09-03 06:40] LABS: Urine Bacteria <20 /HPF (NONE SEEN); Urine Mucus 1+ /HPF (NONE SEEN); Urine RBC <5 /HPF (NONE SEEN); Urine Yeast PRESENT (NONE SEEN)
[2021-09-03 06:41] LABS: Urine Yeast with Hyphae PRESENT
[2021-09-03] MEDS: INSULIN -REGULAR HUMAN 50 UNIT/0.5 ML ML SQ SCH ×4 (07:30→21:00)
[2021-09-03] MEDS: SUCRALFATE 1GM/10ML UCUP FT SCH ×4 (08:11→20:15)
[2021-09-03] MEDS: Meropenem 1,000 MG in NA CHLORIDE 0.9% 100 ML IV SCH ×2 (08:12→20:14)
[2021-09-03] MEDS: ESCITALOPRAM 20 MG TAB FT SCH (08:13)
[2021-09-03] MEDS: GABAPENTIN 300 MG CAP FT SCH ×2 (08:13→20:17)
[2021-09-03] MEDS: AMILORIDE HCL 5 MG TABLET PO SCH ×2 (08:13→20:15)
[2021-09-03] MEDS: AMLODIPINE 10 MG TAB FT SCH (08:13)
[2021-09-03] MEDS: DOCUSATE NA 100 MG CAP PO SCH ×2 (08:13→20:17)
[2021-09-03] MEDS: TAMSULOSIN 0.4 MG SR CAP PO SCH (08:13)
[2021-09-03] MEDS: CLOPIDOGREL 75 MG TABLET FT SCH (08:13)
[2021-09-03] MEDS: NEPRO 1,000 ML BOT FT SCH ×4 (08:14→20:15)
[2021-09-03] MEDS: CLONIDINE 0.1 MG/PATCH TD SCH (08:18)
[2021-09-03] MEDS: METOLAZONE 5 MG TABLET PO SCH ×2 (11:53→17:02)
[2021-09-03] MEDS: GUAIFENESIN/DM 5 ML UCUP PO PRN (11:55)
--- NOTE | 2021-09-03 12:03 | P.PN ---
Subjective Date of Service: 09/03/21 Primary Care Provider: Jatinder Chief Complaint: chronic Subjective: No new changes, No C/O voiced Physical Examination - Vital Signs Temperature: 97.2 F Blood Pressure: 155/79 Pulse: 65 Respirations: 16 Pulse Ox (%): 99 Assessment And Plan Physician Review: Patient Assessed, Agree with Above Assessment and Plan Physician Review Additional Text: - Physical Exam General: Alert, frail, middle-aged but chronically ill looking HEENT: Atraumatic, PERRLA, EOMI Neck: Supple, JVD not distended Respiratory: Decreased breath sounds at bases, mild bibasilar crepitus Cardiovascular: Regular rate/rhythm, Normal S1 S2 Gastrointestinal: Normal bowel sounds, No tenderness, mild ascites by shifting dullness Musculoskeletal: No tenderness, no pedal edema GUindwelling Holcomb, large penile and scrotal edema Integumentary: No rashes Neurological: Normal speech, Normal tone, Normal affect Lymphatics: No axilla or inguinal lymphadenopathy Impression Recurrent bilateral pleural effusion Acute kidney injury on CKD Nephrotic range proteinuria Hypertension Scrotal edema Presumed Multiple myeloma -with abnormal SPEP/abnormal lambda kappa level, hypoalbuminemia, nephrotic range proteinuria unexplained anemia MDR Pseudomonas UTIcompleted antibiotics History of neurogenic bladderindwelling Foleystatus post change in ER History of aplastic anemiafollows with Dr. Fierrooncology at outpatient Diabetes mellitus Plan Continue AlbuminLasix diuresis Achieving negative urine balance now Fluid restriction to less than 1.5 L/day discussed Continue Lasix 40 q. 6 and albumin every 6 for now See scrotal edema pain slightly improved, continue with diuresis Follow potassium and magnesium levels and replete as needed -consult interventional radiology for renal biopsy as well as bone marrow biopsy in a.m. Abnormal kappa lambda ratio as well as significant proteinuria of greater than 13 g/g, high suspicion for multiple myeloma Strict glycemic control, continue insulin regimen Continue indwelling Holcomb Continue meropenem for UTI Continue blood pressure regimen We will consult oncology -continue nephrology team on service 09/03/21 11:58
[2021-09-03] MEDS: ACETAMINOPHEN 500 MG TAB PO PRN (13:11)
[2021-09-03] MEDS ORDERED: HYDROCODONE/APAP 5/325 MG TAB PO PRN (16:48)
[2021-09-03] MEDS: LEVALBUTEROL 0.63 MG/3 ML NEB NEB PRN (19:50)
[2021-09-03] MEDS: TRAZODONE 150 MG TAB PO SCH (20:15)
[2021-09-03] MEDS: ASPIRIN EC 81 MG TAB PO SCH (20:17)
[2021-09-04] MEDS: ALBUMIN HUMAN 25% 100 ML IV SCH ×2 (01:44→09:15)
[2021-09-04] MEDS: FUROSEMIDE 20 MG/ 2ML VIAL IV SCH ×4 (01:44→20:40)
[2021-09-04 05:39] LABS: Absolute Lymphocytes (CBC) 0.9 K/uL (0.7-4.9); Hematocrit 23.2 % (39.6-49.0); Lymphocytes % 16.7 % (15.3-44.8); MPV 9.7 fL (7.6-11.3); RBC Red Blood Cell Count 3.16 M/uL (4.33-5.43)
[2021-09-04 05:50] LABS: Protime INR 1.07
[2021-09-04 06:03] LABS: Albumin 2.3 g/dL (3.4-5.0); Bilirubin Total 0.4 mg/dL (0.2-1.0); Potassium 4.5 mmol/L (3.5-5.1); Protein, Total 5.6 g/dL (6.4-8.2); Uric Acid 7.3 mg/dL (3.5-7.2)
[2021-09-04] MEDS: Pantoprazole (granules) 40 MG/BLIST PACKET FT SCH (06:29)
[2021-09-04] MEDS: INSULIN -REGULAR HUMAN 50 UNIT/0.5 ML ML SQ SCH ×4 (07:30→20:40)
[2021-09-04] MEDS: LEVALBUTEROL 0.63 MG/3 ML NEB NEB PRN ×3 (07:51→17:58)
[2021-09-04] MEDS ORDERED: PNEUMOCOCCAL VACCINE 0.5 ML IMVAC ONE (08:00)
[2021-09-04] MEDS ORDERED: INFLUENZA VACCINE (for 6+ mo) 0.5 ML DOSE IMVAC ONE (08:00)
[2021-09-04] MEDS: SUCRALFATE 1GM/10ML UCUP FT SCH ×4 (08:00→20:38)
[2021-09-04] MEDS: TAMSULOSIN 0.4 MG SR CAP PO SCH (08:18)
[2021-09-04] MEDS: DOCUSATE NA 100 MG CAP PO SCH ×2 (08:18→20:39)
[2021-09-04] MEDS: ESCITALOPRAM 20 MG TAB FT SCH (08:18)
[2021-09-04] MEDS: AMLODIPINE 10 MG TAB FT SCH (08:19)
[2021-09-04] MEDS: GABAPENTIN 300 MG CAP FT SCH ×2 (08:19→20:39)
[2021-09-04] MEDS: AMILORIDE HCL 5 MG TABLET PO SCH ×2 (08:19→20:39)
[2021-09-04] MEDS: NEPRO 1,000 ML BOT FT SCH ×4 (08:19→20:40)
[2021-09-04] MEDS ORDERED: D10W 125 ML IV PRN (15:01)
[2021-09-04] MEDS ORDERED: ESCITALOPRAM 20 MG TAB PO ONE (17:00)
[2021-09-04] MEDS ORDERED: AMILORIDE HCL 5 MG TABLET PO ONE (17:00)
[2021-09-04] MEDS: TRAZODONE 150 MG TAB PO SCH (20:38)
--- NOTE | 2021-09-04 20:46 | P.PN ---
Date of Service: 09/04/21 Vital Signs Temp Pulse Resp BP Pulse Ox 98.1 F 77 16 164/72 H 96 09/04/21 16:00 09/04/21 20:40 09/04/21 16:00 09/04/21 20:40 09/04/21 16:00 Medications Acetaminophen (Acetaminophen 500 Mg Tab) 500 mg PO Q6H PRN PRN Reason: Headache Last Admin: 09/03/21 13:11 Dose: 500 mg Documented by: Hydrocodone Bitart/Acetaminophen (Hydrocodone/Apap 5/325 Mg Tab) 1 tab PO Q8HP PRN PRN Reason: Pain scale 5-7 (Moderate) Last Admin: 09/03/21 17:03 Dose: 1 tab Documented by: Amiloride HCl (Amiloride Hcl 5 Mg Tablet) 10 mg PO BID [facility] Last Admin: 09/04/21 20:39 Dose: 10 mg Documented by: Amlodipine Besylate (Amlodipine 10 Mg Tab) 10 mg FT DAILY [facility] Last Admin: 09/04/21 08:19 Dose: Not Given Documented by: Aspirin (Aspirin Ec 81 Mg Tab) 81 mg PO BEDTIME [facility] Last Admin: 09/03/21 20:17 Dose: 81 mg Documented by: Clonidine HCl (Clonidine 0.1 Mg/Patch) 0.1 mg TD EVERY 7TH DAY [facility] Last Admin: 09/03/21 08:18 Dose: 0.1 mg Documented by: Clopidogrel Bisulfate (Clopidogrel 75 Mg Tablet) 75 mg FT DAILY [facility] Last Admin: 09/03/21 08:13 Dose: 75 mg Documented by: Docusate Sodium (Docusate Na 100 Mg Cap) 100 mg PO BID [facility] Last Admin: 09/04/21 20:39 Dose: 100 mg Documented by: Enteral Nutritional Formula (Nepro 1,000 Ml Bot) 237 ml FT QID [facility] Last Admin: 09/04/21 20:40 Dose: 237 ml Documented by: Escitalopram Oxalate (Escitalopram 20 Mg Tab) 40 mg FT DAILY [facility] Last Admin: 09/04/21 08:18 Dose: Not Given Documented by: Furosemide (Furosemide 20 Mg/ 2ml Vial) 40 mg IV Q6H [facility] Last Admin: 09/04/21 20:40 Dose: 40 mg Documented by: Gabapentin (Gabapentin 300 Mg Cap) 300 mg FT BID [facility] Last Admin: 09/04/21 20:39 Dose: 300 mg Documented by: Glucagon (Glucagon 1 Mg/Vial) 1 mg IM 1X PRN; Protocol PRN Reason: HYPOGLYCEMIA Guaifenesin/Dextromethorphan (Guaifenesin/Dm 5 Ml Ucup) 15 ml PO QID PRN PRN Reason: COUGH Last Admin: 09/03/21 11:55 Dose: 15 ml Documented by: Hydralazine HCl (Hydralazine Hcl 20 Mg/Ml Vial) 10 mg IV Q6HP PRN PRN Reason: HIGHBP Last Admin: 09/03/21 00:09 Dose: 10 mg Documented by: Dextrose (Dextrose 10% Water Iv Soln.) 125 mls @ 0 mls/hr IV PRN PRN; Protocol PRN Reason: HYPOGLYCEMIA Insulin Human Regular (Insulin -Regular Human 50 Unit/0.5 Ml Ml) 0 unit SQ ACHS [facility]; Protocol Last Admin: 09/04/21 20:40 Dose: Not Given Documented by: Levalbuterol HCl (Levalbuterol 0.63 Mg/3 Ml Neb) 0.63 mg NEB [id number] PRN PRN Reason: SHORTNESS OF BREATH Last Admin: 09/04/21 17:58 Dose: 0.63 mg Documented by: Ondansetron HCl (Ondansetron 4 Mg (Odt) Tab) 4 mg FT Q8H PRN PRN Reason: NAUSEA / VOMITING Pantoprazole Sodium (Pantoprazole (Granules) 40 Mg/Blist Packet) 40 mg FT DA [facility]; Protocol Last Admin: 09/04/21 06:29 Dose: 40 mg Documented by: Sucralfate (Sucralfate 1gm/10ml Ucup) 0.1 gm FT 0800,1200,1700,2000 [facility] Last Admin: 09/04/21 20:38 Dose: 0.1 gm Documented by: Tamsulosin HCl (Tamsulosin 0.4 Mg Sr Cap) 0.4 mg PO DAILY [facility] Last Admin: 09/04/21 08:18 Dose: Not Given Documented by: Trazodone HCl (Trazodone 150 Mg Tab) 150 mg PO BEDTIME [facility] Last Admin: 09/04/21 20:38 Dose: 150 mg Documented by: Microbiology Results 08/24/21 10:24 Blood - Blood Aerobic Blood Culture - Final No growth in 5 days. 08/24/21 10:24 Blood - Blood Anaerobic Blood Culture - Final No growth in 5 days. 08/24/21 10:34 Blood - Blood Aerobic Blood Culture - Final No growth in 5 days. 08/24/21 10:34 Blood - Blood Anaerobic Blood Culture - Final No growth in 5 days. 08/24/21 12:01 Clean Catch Urine [place] Count - Final >100,000 CFU/ML. 08/24/21 12:01 Clean Catch Urine - Final Pseudomonas Aeruginosa Assessment/ Plan: Nephrology No dyspnea No chest pain Persistent edema including scrotal edema No acute events overnight Vitals, medications, blood work and imaging reviewed in the chart. General: In no apparent distress, Oriented x2, Cooperative HEENT: Atraumatic Neck: Supple Respiratory: Clear to auscultation bilaterally Cardiovascular: Regular rate/rhythm, Edema Gastrointestinal: Non-distended, No guarding Musculoskeletal: No clubbing, No contractures Integumentary: No rashes, No cyanosis Neurological: Normal speech External genitalia: Edema Blood work reviewed in the chart. Imagings Data: EXAM DESCRIPTION: US - Urinary Bladder - 08/25/2021 2:24 pm FINDINGS: Holcomb catheter is in place. Urinary bladder is fully contracted pre cluding any assessment of the bladder edwards. Volume was 3 milliliters. EXAM DESCRIPTION: RAD - Chest Pa And Lat (2 Views) - 08/25/2021 4:23 pm CLINICAL HISTORY: pleural effusion COMPARISON: Portable 08/24/2021, 06/28/2021 and 07/07/2021 TECHNIQUE: Frontal and lateral views of the chest were obtained. FINDINGS: Prominent baseline interstitial pattern noted. Sternotomy wires remain in place. No new tube or line. Bilateral costophrenic angle blunting is present right greater than left. Pleural effusions have been previously diagnosed and right-sided pleural fluid has decreased. Cardiomegaly has shown fractional improvement. Vasculature is slightly less pronounced. Trachea is midline. No pneumothorax. No acute bony finding noted. No aortic abnormality. IMPRESSION: Right-sided pleural fluid appears to be improved somewhat from prior day imaging. Cardiomegaly and vascular engorgement have improved but not resolved. Conclusions/Impression: OSCAR may be CRS CKD III with proteinuria -No NSAIDs -Continue Lasix Hypocalcemia -Consider Vitamin D HTN with CKD/ CHF -Continue Amlodipine and Catapres Diastolic CHF, A/C Pleural effusions -2g Na diet -Continue Lasix 20mg IV q6h -Continue Amiloride BID DM II with CKD -RISS Moderate malnutrition -Continue Nepro through FT -Continue free water through PEG Anemia in chronic illness -Monitor H&H -Transfuse PRBC as needed BPH with LUTS -Continue Flomax -Continue Holcomb Catheter
--- NOTE | 2021-09-04 23:18 | P.PN ---
Subjective Date of Service: 09/04/21 Subjective: No new changes, No C/O voiced, Improving Patient was scheduled for biopsy. The was concern for multiple myeloma. Workup still pending. NPO after midnight. Review of Systems 10-point ROS is otherwise unremarkable Physical Examination - Vital Signs Temperature: 98 F Blood Pressure: 164/72 Pulse: 77 Respirations: 18 Pulse Ox (%): 94 - Physical Exam General: Alert, In no apparent distress, Oriented x3, Cachectic HEENT: Atraumatic, PERRLA, EOMI Neck: Supple, JVD not distended Respiratory: Clear to auscultation bilaterally, Normal air movement Cardiovascular: Regular rate/rhythm, Normal S1 S2, No murmurs Gastrointestinal: Normal bowel sounds, Soft and benign, Non-distended, No tenderness Musculoskeletal: No clubbing, No swelling Neurological: Sensation intact, Cranial nerves 3-12 intact Lymphatics: No axilla or inguinal lymphadenopathy - Studies Medications List Reviewed: Yes Assessment & Plan - Problems (Diagnosis) (1) CHF exacerbation Current Visit: No Status: Acute Qualifiers: Heart failure type: combined systolic and diastolic Qualified Code(s): I50.43 - Acute on chronic combined systolic (congestive) and diastolic (congestive) heart failure (2) Cardiomyopathy Current Visit: No Status: Acute (3) Depression Current Visit: No Status: Acute (4) Diabetes Current Visit: No Status: Acute Qualifiers: Diabetes mellitus type: type 2 Diabetes mellitus penitentiary insulin use: with meterman use Diabetes mellitus complication status: without complication Qualified Code(s): E11.9 - Type 2 diabetes mellitus without complications; Z79.4 - emt intermediate (current) use of insulin (5) S/P percutaneous endoscopic gastrostomy (PEG) tube placement Current Visit: No Status: Acute (6) Anemia Onset Date: 11/05/16 Current Visit: No Status: Chronic (7) Hypertension Onset Date: 11/05/16 Current Visit: No Status: Chronic Qualifiers: Hypertension type: primary hypertension Qualified Code(s): I10 - Essential (primary) hypertension (8) Congestive heart failure Current Visit: No Status: Acute Qualifiers: Heart failure type: systolic Heart failure chronicity: acute on chronic Qualified Code(s): I50.23 - Acute on chronic systolic (congestive) heart failure - Plan Plan: 1. Continue with diuresing 2. NPO after midnight for renal and bone biopsy 3. Hematology consultation 4. Strict blood pressure and blood sugar control 5. Monitor volume status closely 6. GI and DVT prophylaxis Discharge Plan: Home Plan to discharge in: Greater than 2 days - Advance Directives Does patient have a Living Will: No Does patient have a Durable POA for Healthcare: No - Code Status/Comfort Care Code Status: Full Code Physician Review: Patient Assessed, Agree with Above Assessment and Plan Critical Care: No Time Spent Managing PTS Care (In Minutes): 45
[2021-09-05] MEDS: LEVALBUTEROL 0.63 MG/3 ML NEB NEB PRN ×2 (00:05→20:15)
[2021-09-05] MEDS: FUROSEMIDE 20 MG/ 2ML VIAL IV SCH ×4 (00:53→18:51)
[2021-09-05] MEDS: Pantoprazole (granules) 40 MG/BLIST PACKET FT SCH (05:36)
[2021-09-05 06:26] LABS: Absolute Lymphocytes (CBC) 0.6 K/uL (0.7-4.9); Hematocrit 24.8 % (39.6-49.0); Lymphocytes % 8.1 % (15.3-44.8); MPV 9.9 fL (7.6-11.3); RBC Red Blood Cell Count 3.42 M/uL (4.33-5.43)
[2021-09-05 06:47] LABS: Magnesium 3.2 mg/dL (1.8-2.4); Potassium 4.8 mmol/L (3.5-5.1)
[2021-09-05] MEDS: INSULIN -REGULAR HUMAN 50 UNIT/0.5 ML ML SQ SCH ×4 (07:30→20:55)
[2021-09-05] MEDS: SUCRALFATE 1GM/10ML UCUP FT SCH ×4 (08:00→20:53)
[2021-09-05] MEDS: TAMSULOSIN 0.4 MG SR CAP PO SCH (09:00)
[2021-09-05] MEDS: DOCUSATE NA 100 MG CAP PO SCH ×2 (09:00→20:54)
[2021-09-05] MEDS: NEPRO 1,000 ML BOT FT SCH ×4 (09:00→21:05)
[2021-09-05] MEDS: AMLODIPINE 10 MG TAB FT SCH (09:00)
[2021-09-05] MEDS: AMILORIDE HCL 5 MG TABLET PO SCH ×2 (09:00→20:54)
[2021-09-05] MEDS: ESCITALOPRAM 20 MG TAB FT SCH (09:00)
[2021-09-05] MEDS: GABAPENTIN 300 MG CAP FT SCH ×2 (09:00→20:54)
[2021-09-05 15:06] LABS: 18 kD IGG BAND Reactive; 23 kD IGG BAND Nonreactive; 23 kD IGM BAND Nonreactive; 28 kD IGG BAND Nonreactive; 30 kD IGG BAND Nonreactive; 39 kD IGG BAND Nonreactive; 39 kD IGM BAND Nonreactive; 41 kD IGG BAND Reactive; 41 kD IGM BAND Nonreactive; 45 kD IGG BAND Nonreactive; 58 kD IGG BAND Nonreactive; 66 kD IGG BAND Nonreactive; 93 kD IGG BAND Nonreactive
--- NOTE | 2021-09-05 18:05 | P.PN ---
Date of Service: 09/05/21 Vital Signs Temp Pulse Resp BP Pulse Ox 98.0 F 72 16 171/78 H 93 09/05/21 16:00 09/05/21 16:00 09/05/21 16:00 09/05/21 16:00 09/05/21 16:00 Medications Acetaminophen (Acetaminophen 500 Mg Tab) 500 mg PO Q6H PRN PRN Reason: Headache Last Admin: 09/03/21 13:11 Dose: 500 mg Documented by: Hydrocodone Bitart/Acetaminophen (Hydrocodone/Apap 5/325 Mg Tab) 1 tab PO Q8HP PRN PRN Reason: Pain scale 5-7 (Moderate) Last Admin: 09/03/21 17:03 Dose: 1 tab Documented by: Amiloride HCl (Amiloride Hcl 5 Mg Tablet) 10 mg PO BID [facility] Last Admin: 09/05/21 09:00 Dose: Not Given Documented by: Amlodipine Besylate (Amlodipine 10 Mg Tab) 10 mg FT DAILY [facility] Last Admin: 09/05/21 09:00 Dose: Not Given Documented by: Aspirin (Aspirin Ec 81 Mg Tab) 81 mg PO BEDTIME [facility] Last Admin: 09/03/21 20:17 Dose: 81 mg Documented by: Clonidine HCl (Clonidine 0.1 Mg/Patch) 0.1 mg TD EVERY 7TH DAY [facility] Last Admin: 09/03/21 08:18 Dose: 0.1 mg Documented by: Clopidogrel Bisulfate (Clopidogrel 75 Mg Tablet) 75 mg FT DAILY [facility] Last Admin: 09/03/21 08:13 Dose: 75 mg Documented by: Docusate Sodium (Docusate Na 100 Mg Cap) 100 mg PO BID [facility] Last Admin: 09/05/21 09:00 Dose: Not Given Documented by: Enteral Nutritional Formula (Nepro 1,000 Ml Bot) 237 ml FT QID [facility] Last Admin: 09/05/21 13:00 Dose: 237 ml Documented by: Escitalopram Oxalate (Escitalopram 20 Mg Tab) 40 mg FT DAILY [facility] Last Admin: 09/05/21 09:00 Dose: Not Given Documented by: Furosemide (Furosemide 20 Mg/ 2ml Vial) 40 mg IV Q6H [facility] Last Admin: 09/05/21 13:04 Dose: 40 mg Documented by: Gabapentin (Gabapentin 300 Mg Cap) 300 mg FT BID [facility] Last Admin: 09/05/21 09:00 Dose: Not Given Documented by: Glucagon (Glucagon 1 Mg/Vial) 1 mg IM 1X PRN; Protocol PRN Reason: HYPOGLYCEMIA Guaifenesin/Dextromethorphan (Guaifenesin/Dm 5 Ml Ucup) 15 ml PO QID PRN PRN Reason: COUGH Last Admin: 09/03/21 11:55 Dose: 15 ml Documented by: Hydralazine HCl (Hydralazine Hcl 20 Mg/Ml Vial) 10 mg IV Q6HP PRN PRN Reason: HIGHBP Last Admin: 09/03/21 00:09 Dose: 10 mg Documented by: Dextrose (Dextrose 10% Water Iv Soln.) 125 mls @ 0 mls/hr IV PRN PRN; Protocol PRN Reason: HYPOGLYCEMIA Insulin Human Regular (Insulin -Regular Human 50 Unit/0.5 Ml Ml) 0 unit SQ ACHS [facility]; Protocol Last Admin: 09/05/21 11:30 Dose: Not Given Documented by: Levalbuterol HCl (Levalbuterol 0.63 Mg/3 Ml Neb) 0.63 mg NEB [id number] PRN PRN Reason: SHORTNESS OF BREATH Last Admin: 09/05/21 00:05 Dose: 0.63 mg Documented by: Ondansetron HCl (Ondansetron 4 Mg (Odt) Tab) 4 mg FT Q8H PRN PRN Reason: NAUSEA / VOMITING Pantoprazole Sodium (Pantoprazole (Granules) 40 Mg/Blist Packet) 40 mg FT DAILYAC [facility]; Protocol Last Admin: 09/05/21 05:36 Dose: Not Given Documented by: Sucralfate (Sucralfate 1gm/10ml Ucup) 0.1 gm FT 0800,1200,1700,2000 [facility] Last Admin: 09/05/21 12:00 Dose: 0.1 gm Documented by: Tamsulosin HCl (Tamsulosin 0.4 Mg Sr Cap) 0.4 mg PO DAILY [facility] Last Admin: 09/05/21 09:00 Dose: Not Given Documented by: Trazodone HCl (Trazodone 150 Mg Tab) 150 mg PO BEDTIME [facility] Last Admin: 09/04/21 20:38 Dose: 150 mg Documented by: Microbiology Results 08/24/21 10:24 Blood - Blood Aerobic Blood Culture - Final No growth in 5 days. 08/24/21 10:24 Blood - Blood Anaerobic Blood Culture - Final No growth in 5 days. 08/24/21 10:34 Blood - Blood Aerobic Blood Culture - Final No growth in 5 days. 08/24/21 10:34 Blood - Blood Anaerobic Blood Culture - Final No growth in 5 days. 08/24/21 12:01 Clean Catch Urine [place] Count - Final >100,000 CFU/ML. 08/24/21 12:01 Clean Catch Urine - Final Pseudomonas Aeruginosa Assessment/ Plan: Nephrology No dyspnea No chest pain Persistent hip edema including scrotal edema No acute events overnight Vitals, medications, blood work and imaging reviewed in the chart. General: In no apparent distress, Oriented x2, Cooperative HEENT: Atraumatic Neck: Supple Respiratory: Clear to auscultation bilaterally Cardiovascular: Regular rate/rhythm, Edema Gastrointestinal: Non-distended, No guarding Musculoskeletal: No clubbing, No contractures Integumentary: No rashes, No cyanosis Neurological: Normal speech External genitalia: Edema Blood work reviewed in the chart. Imagings Data: EXAM DESCRIPTION: US - Urinary Bladder - 08/25/2021 2:24 pm FINDINGS: Holcomb catheter is in place. Urinary bladder is fully contracted precluding any assessment of the bladder edwards. Volume was 3 milliliters. EXAM DESCRIPTION: RAD - Chest Pa And Lat (2 Views) - 08/25/2021 4:23 pm CLINICAL HISTORY: pleural effusion COMPARISON: Portable 08/24/2021, 06/28/2021 and 07/07/2021 TECHNIQUE: Frontal and lateral views of the chest were obtained. FINDINGS: Prominent baseline interstitial pattern noted. Sternotomy wires remain in place. No new tube or line. Bilateral costophrenic angle blunting is present right greater than left. Pleural effusions have been previously diagnosed and right-sided pleural fluid has decreased. Cardiomegaly has shown fractional improvement. Vasculature is slightly less pronounced. Trachea is midline. No pneumothorax. No acute bony finding noted. No aortic abnormality. IMPRESSION: Right-sided pleural fluid appears to be improved somewhat from prior day imaging. Cardiomegaly and vascular engorgement have improved but not resolved. Conclusions/Impression: OSCAR may be CRS CKD III with proteinuria -No NSAIDs -Continue Lasix -Plan for renal bx Hypocalcemia -Consider Vitamin D HTN with CKD/ CHF -Continue Amlodipine and Catapres Diastolic CHF, A/C Pleural effusions -2g Na diet -Continue Lasix 20mg IV q6h -Continue Amiloride BID DM II with CKD -RISS Moderate malnutrition -Continue Nepro through FT -Continue free water through PEG Anemia in chronic illness -Monitor H&H -Transfuse PRBC as needed -Plan for bone marrow bx BPH with LUTS -Continue Flomax -Continue Holcomb Catheter Case reviewed with Dr. Seth
[2021-09-05] MEDS: TRAZODONE 150 MG TAB PO SCH (20:54)
[2021-09-05] MEDS: HYDRALAZINE HCL 20 MG/ML VIAL IV PRN (21:36)
[2021-09-06] MEDS: FUROSEMIDE 20 MG/ 2ML VIAL IV SCH ×4 (00:19→20:10)
[2021-09-06] MEDS: Pantoprazole (granules) 40 MG/BLIST PACKET FT SCH (06:05)
[2021-09-06] MEDS: INSULIN -REGULAR HUMAN 50 UNIT/0.5 ML ML SQ SCH ×4 (07:30→20:12)
[2021-09-06] MEDS: ESCITALOPRAM 20 MG TAB FT SCH (08:57)
[2021-09-06] MEDS: SUCRALFATE 1GM/10ML UCUP FT SCH ×4 (08:57→20:09)
[2021-09-06] MEDS: TAMSULOSIN 0.4 MG SR CAP PO SCH (08:57)
[2021-09-06] MEDS: DOCUSATE NA 100 MG CAP PO SCH ×2 (08:57→20:10)
[2021-09-06] MEDS: GABAPENTIN 300 MG CAP FT SCH ×2 (08:58→20:10)
[2021-09-06] MEDS: AMILORIDE HCL 5 MG TABLET PO SCH ×2 (08:58→20:10)
[2021-09-06] MEDS: AMLODIPINE 10 MG TAB FT SCH (08:58)
[2021-09-06] MEDS: NEPRO 1,000 ML BOT FT SCH ×4 (08:59→20:16)
[2021-09-06] MEDS: GUAIFENESIN/DM 5 ML UCUP PO PRN (12:02)
[2021-09-06] MEDS: ACETAMINOPHEN 500 MG TAB PO PRN (12:08)
--- NOTE | 2021-09-06 12:51 | P.PN ---
Date of Service: 09/06/21 Subjective Patient doing better. He denies any new complaints. Clinical symptoms continue to improve. Arrange for biopsy. Review of Systems 10-point ROS is otherwise unremarkable Physical Examination - Vital Signs Reviewed - Physical Exam General: Alert, In no apparent distress, Oriented x3, Cachectic Respiratory: Clear to auscultation bilaterally, Normal air movement Cardiovascular: Regular rate/rhythm, Normal S1 S2, No murmurs Gastrointestinal: Normal bowel sounds, Soft and benign, Non-distended, No tenderness Musculoskeletal: No clubbing, No swelling Neurological: Sensation intact, Cranial nerves 3-12 intact Assessment & Plan - Problems (Diagnosis) (1) CHF exacerbation Current Visit: No Status: Acute Heart failure type: combined systolic and diastolic Qualified Code(s): I50.43 - Acute on chronic combined systolic (congestive) and diastolic (congestive) heart failure (2) Cardiomyopathy Current Visit: No Status: Acute (3) Depression Current Visit: No Status: Acute (4) Diabetes Current Visit: No Status: Acute Qualifiers: Diabetes mellitus type: type 2 Diabetes mellitus terminal makeup operator insulin use: with terminal makeup operator use Diabetes mellitus complication status: without complication Qualified Code(s): E11.9 - Type 2 diabetes mellitus without complications; Z79.4 - retirement (current) use of insulin (5) S/P percutaneous endoscopic gastrostomy (PEG) tube placement Current Visit: No Status: Acute (6) Anemia Onset Date: 11/05/16 Current Visit: No Status: Chronic (7) Hypertension Onset Date: 11/05/16 Current Visit: No Status: Chronic Qualifiers: Hypertension type: primary hypertension Qualified Code(s): I10 - Essential (primary) hypertension (8) Congestive heart failure Current Visit: No Status: Acute Qualifiers: Heart failure type: systolic Heart failure chronicity: acute on chronic Qualified Code(s): I50.23 - Acute on chronic systolic (congestive) heart failure - Plan Continue with plan of care as mentioned below: 1. Continue with diuresing; change Holcomb catheter 2. NPO after midnight for renal biopsy 3. Hematology consultation pending for tomorrow; patient is performing status is very poor so very unlikely to have any kind of aggressive treatments. May not benefit from any procedures as we will be able to treat him because of his being so debilitated. wants him to still have the biopsy at this time 4. Strict blood pressure and blood sugar control 5. Monitor volume status closely 6. GI and DVT prophylaxis Discharge Plan: Home Plan to discharge in: Greater than 2 days - Advance Directives Does patient have a Living Will: No Does patient have a Durable POA for Healthcare: No - Code Status/Comfort Care Code Status: Full Code Physician Review: Patient Assessed, Agree with Above Assessment and Plan Critical Care: No Time Spent Managing PTS Care (In Minutes): 45
--- NOTE | 2021-09-06 12:51 | P.PN ---
Date of Service: 09/05/21 Subjective Patient continues to improve. Patient clinical conditions are much better. Patient is scheduled for renal biopsy in the morning. Review of Systems 10-point ROS is otherwise unremarkable Physical Examination - Vital Signs Reviewed - Physical Exam General: Alert, In no apparent distress, Oriented x3, Cachectic Respiratory: Clear to auscultation bilaterally, Normal air movement Cardiovascular: Regular rate/rhythm, Normal S1 S2, No murmurs Gastrointestinal: Normal bowel sounds, Soft and benign, Non-distended, No tenderness Musculoskeletal: No clubbing, No swelling Neurological: Sensation intact, Cranial nerves 3-12 intact Assessment & Plan - Problems (Diagnosis) (1) CHF exacerbation Current Visit: No Status: Acute Heart failure type: combined systolic and diastolic Qualified Code(s): I50.43 - Acute on chronic combined systolic (congestive) and diastolic (congestive) heart failure (2) Cardiomyopathy Current Visit: No Status: Acute (3) Depression Current Visit: No Status: Acute (4) Diabetes Current Visit: No Status: Acute Qualifiers: Diabetes mellitus type: type 2 Diabetes mellitus termite exterminator helper insulin use: with termite exterminator helper use Diabetes mellitus complication status: without complication Qualified Code(s): E11.9 - Type 2 diabetes mellitus without complications; Z79.4 - [facility] (current) use of insulin (5) S/P percutaneous endoscopic gastrostomy (PEG) tube placement Current Visit: No Status: Acute (6) Anemia Onset Date: 11/05/16 Current Visit: No Status: Chronic (7) Hypertension Onset Date: 11/05/16 Current Visit: No Status: Chronic Qualifiers: Hypertension type: primary hypertension Qualified Code(s): I10 - Essential (primary) hypertension (8) Congestive heart failure Current Visit: No Status: Acute Qualifiers: Heart failure type: systolic Heart failure chronicity: acute on chronic Qualified Code(s): I50.23 - Acute on chronic systolic (congestive) heart failure - Plan Continue with plan of care as mentioned below: 1. Continue with diuresing; change Holcomb catheter 2. NPO after midnight for renal biopsy 3. Hematology consultation pending for tomorrow; patient is performing status is very poor so very unlikely to have any kind of aggressive treatments. May not benefit from any procedures as we will be able to treat him because of his being so debilitated. wants him to still have the biopsy at this time 4. Strict blood pressure and blood sugar control 5. Monitor volume status closely 6. GI and DVT prophylaxis Discharge Plan: Home Plan to discharge in: Greater than 2 days - Advance Directives Does patient have a Living Will: No Does patient have a Durable POA for Healthcare: No - Code Status/Comfort Care Code Status: Full Code Physician Review: Patient Assessed, Agree with Above Assessment and Plan Critical Care: No Time Spent Managing PTS Care (In Minutes): 45
[2021-09-06] MEDS: HYDRALAZINE HCL 20 MG/ML VIAL IV PRN (17:27)
--- NOTE | 2021-09-06 18:19 | P.CNS ---
Date of Consult: 09/06/21 (Hematology) Pt seen and examined. Chronic recurrent severe bouts of anemia. bed bound. Somewhat inadequate insight. Apparently had difficulty to follow up in clinic in the past for workup due to social issues/ transportation. Anemia from chronic kidney disease vs possible underlying bone marrow primary hematological disorder like MDS Poor performance status. ECOG 4 I had a detailed discussion with patient and his . Even if work up is completed, given his poor performance status and unable to come to cancer center for treatment, he will not be a good candidate for treatment if there is an underlying BM problem. He will benefit from Retacrit injections to address the anemia from kidney disease but again he will need to cme to clinic for management of the same which appears to be the problem at this time given his poor performance status. For now, Recommend GI work up to r/o any occult losses. Repeat iron panel, retic ct, L[facility] f/u kidney biopsy BM biopsy to be arranged.
[2021-09-06] MEDS: LEVALBUTEROL 0.63 MG/3 ML NEB NEB PRN (19:25)
--- NOTE | 2021-09-06 20:06 | P.PN ---
Date of Service: 09/06/21 Vital Signs Temp Pulse Resp BP Pulse Ox 97.8 F 65 18 164/75 H 97 09/06/21 16:00 09/06/21 16:00 09/06/21 16:00 09/06/21 16:00 09/06/21 16:00 Medications Acetaminophen (Acetaminophen 500 Mg Tab) 500 mg PO Q6H PRN PRN Reason: Headache Last Admin: 09/06/21 12:08 Dose: 500 mg Documented by: Hydrocodone Bitart/Acetaminophen (Hydrocodone/Apap 5/325 Mg Tab) 1 tab PO Q8HP PRN PRN Reason: Pain scale 5-7 (Moderate) Last Admin: 09/03/21 17:03 Dose: 1 tab Documented by: Amiloride HCl (Amiloride Hcl 5 Mg Tablet) 10 mg PO BID [facility] Last Admin: 09/06/21 08:58 Dose: 10 mg Documented by: Amlodipine Besylate (Amlodipine 10 Mg Tab) 10 mg FT DAILY [facility] Last Admin: 09/06/21 08:58 Dose: 10 mg Documented by: Aspirin (Aspirin Ec 81 Mg Tab) 81 mg PO BEDTIME [facility] Last Admin: 09/03/21 20:17 Dose: 81 mg Documented by: Clonidine HCl (Clonidine 0.1 Mg/Patch) 0.1 mg TD EVERY 7TH DAY [facility] Last Admin: 09/03/21 08:18 Dose: 0.1 mg Documented by: Clopidogrel Bisulfate (Clopidogrel 75 Mg Tablet) 75 mg FT DAILY [facility] Last Admin: 09/03/21 08:13 Dose: 75 mg Documented by: Docusate Sodium (Docusate Na 100 Mg Cap) 100 mg PO BID [facility] Last Admin: 09/06/21 08:57 Dose: 100 mg Documented by: Enteral Nutritional Formula (Nepro 1,000 Ml Bot) 237 ml FT QID [facility] Last Admin: 09/06/21 17:00 Dose: Not Given Documented by: Escitalopram Oxalate (Escitalopram 20 Mg Tab) 40 mg FT DAILY [facility] Last Admin: 09/06/21 08:57 Dose: 40 mg Documented by: Furosemide (Furosemide 20 Mg/ 2ml Vial) 40 mg IV Q6H [facility] Last Admin: 09/06/21 12:09 Dose: 40 mg Documented by: Gabapentin (Gabapentin 300 Mg Cap) 300 mg FT BID [facility] Last Admin: 09/06/21 08:58 Dose: 300 mg Documented by: Glucagon (Glucagon 1 Mg/Vial) 1 mg IM 1X PRN; Protocol PRN Reason: HYPOGLYCEMIA Guaifenesin/Dextromethorphan (Guaifenesin/Dm 5 Ml Ucup) 15 ml PO QID PRN PRN Reason: COUGH Last Admin: 09/06/21 12:02 Dose: 15 ml Documented by: Hydralazine HCl (Hydralazine Hcl 20 Mg/Ml Vial) 10 mg IV Q6HP PRN PRN Reason: HIGHBP Last Admin: 09/06/21 17:27 Dose: 10 mg Documented by: Dextrose (Dextrose 10% Water Iv Soln.) 125 mls @ 0 mls/hr IV PRN PRN; Protocol PRN Reason: HYPOGLYCEMIA Insulin Human Regular (Insulin -Regular Human 50 Unit/0.5 Ml Ml) 0 unit SQ ACHS [facility]; Protocol Last Admin: 09/06/21 16:30 Dose: Not Given Documented by: Levalbuterol HCl (Levalbuterol 0.63 Mg/3 Ml Neb) 0.63 mg NEB [id number] PRN PRN Reason: SHORTNESS OF BREATH Last Admin: 09/05/21 20:15 Dose: 0.63 mg Documented by: Ondansetron HCl (Ondansetron 4 Mg (Odt) Tab) 4 mg FT Q8H PRN PRN Reason: NAUSEA / VOMITING Pantoprazole Sodium (Pantoprazole (Granules) 40 Mg/Blist Packet) 40 mg FT DAILYAC [facility]; Protocol Last Admin: 09/06/21 06:05 Dose: Not Given Documented by: Sucralfate (Sucralfate 1gm/10ml Ucup) 0.1 gm FT 0800,1200,1700,2000 [facility] Last Admin: 09/06/21 17:25 Dose: 0.1 gm Documented by: Tamsulosin HCl (Tamsulosin 0.4 Mg Sr Cap) 0.4 mg PO DAILY [facility] Last Admin: 09/06/21 08:57 Dose: 0.4 mg Documented by: Trazodone HCl (Trazodone 150 Mg Tab) 150 mg PO BEDTIME [facility] Last Admin: 09/05/21 20:54 Dose: 150 mg Documented by: Microbiology Results 08/24/21 10:24 Blood - Blood Aerobic Blood Culture - Final No growth in 5 days. 08/24/21 10:24 Blood - Blood Anaerobic Blood Culture - Final No growth in 5 days. 08/24/21 10:34 Blood - Blood Aerobic Blood Culture - Final No growth in 5 days. 08/24/21 10:34 Blood - Blood Anaerobic Blood Culture - Final No growth in 5 days. 08/24/21 12:01 Clean Catch Urine [place] Count - Final >100,000 CFU/ML. 08/24/21 12:01 Clean Catch Urine - Final Pseudomonas Aeruginosa Assessment/ Plan: Nephrology No dyspnea No chest pain Persistent hip edema including scrotal edema No acute events overnight Vitals, medications, blood work and imaging reviewed in the chart. General: In no apparent distress, Oriented x2, Cooperative HEENT: Atraumatic Neck: Supple Respiratory: Clear to auscultation bilaterally Cardiovascular: Regular rate/rhythm, Edema Gastrointestinal: Non-distended, No guarding Musculoskeletal: No clubbing, No contractures Integumentary: No rashes, No cyanosis Neurological: Normal speech External genitalia: Edema Blood work reviewed in the chart. Imagings Data: EXAM DESCRIPTION: US - Urinary Bladder - 08/25/2021 2:24 pm FINDINGS: Holcomb catheter is in place. Urinary bladder is fully contracted pre cluding any assessment of the bladder edwards. Volume was 3 milliliters. EXAM DESCRIPTION: RAD - Chest Pa And Lat (2 Views) - 08/25/2021 4:23 pm CLINICAL HISTORY: pleural effusion COMPARISON: Portable 08/24/2021, 06/28/2021 and 07/07/2021 TECHNIQUE: Frontal and lateral views of the chest were obtained. FINDINGS: Prominent baseline interstitial pattern noted. Sternotomy wires remain in place. No new tube or line. Bilateral costophrenic angle blunting is present right greater than left. Pleural effusions have been previously diagnosed and right-sided pleural fluid has decreased. Cardiomegaly has shown fractional improvement. Vasculature is slightly less pronounced. Trachea is midline. No pneumothorax. No acute bony finding noted. No aortic abnormality. IMPRESSION: Right-sided pleural fluid appears to be improved somewhat from prior day imaging. Cardiomegaly and vascular engorgement have improved but not resolved. Conclusions/Impression: OSCAR may be CRS CKD III with proteinuria -No NSAIDs -Continue Lasix -Renal bx Hypocalcemia -Consider Vitamin D HTN with CKD/ CHF -Continue Amlodipine and Catapres Diastolic CHF, A/C Pleural effusions -2g Na diet -Continue Lasix 40mg IV q6h -Continue Amiloride BID DM II with CKD -RISS Moderate malnutrition -Continue Nepro through FT -Continue free water through PEG Anemia in chronic illness -Monitor H&H -Transfuse PRBC as needed -Plan for bone marrow bx BPH with LUTS -Continue Flomax -Continue Holcomb Catheter
[2021-09-06] MEDS: TRAZODONE 150 MG TAB PO SCH (20:10)
[2021-09-07] MEDS: FUROSEMIDE 20 MG/ 2ML VIAL IV SCH ×2 (00:04→10:49)
[2021-09-07] MEDS: Pantoprazole (granules) 40 MG/BLIST PACKET FT SCH (05:46)
[2021-09-07 06:22] LABS: Absolute Lymphocytes (CBC) 0.8 K/uL (0.7-4.9); Lymphocytes % 12.8 % (15.3-44.8); RBC Red Blood Cell Count 3.58 M/uL (4.33-5.43)
[2021-09-07 06:47] LABS: Albumin 2.7 g/dL (3.4-5.0); Bilirubin Total 0.5 mg/dL (0.2-1.0); Magnesium 3.2 mg/dL (1.8-2.4); Phosphorus 4.5 mg/dL (2.5-4.9); Potassium 5.5 mmol/L (3.5-5.1); Protein, Total 6.5 g/dL (6.4-8.2); Uric Acid 7.7 mg/dL (3.5-7.2)
[2021-09-07] MEDS: INSULIN -REGULAR HUMAN 50 UNIT/0.5 ML ML SQ SCH ×4 (07:30→21:00)
[2021-09-07] MEDS: LEVALBUTEROL 0.63 MG/3 ML NEB NEB PRN ×2 (07:50→19:38)
[2021-09-07] MEDS: SUCRALFATE 1GM/10ML UCUP FT SCH ×4 (08:00→20:32)
[2021-09-07] MEDS: CLOPIDOGREL 75 MG TABLET FT SCH ×2 (09:00→10:43)
[2021-09-07] MEDS: NEPRO 1,000 ML BOT FT SCH ×4 (09:00→21:00)
[2021-09-07 09:02] LABS: Urine Appearance CLEAR (Clear); Urine Bilirubin NEGATIVE (Negative); Urine Blood NEGATIVE (Negative); Urine Color YELLOW (Yellow); Urine Glucose NEGATIVE (Negative); Urine Protein 2+ (Negative); Urine Specific Gravity 1.015 (1.005-1.030); Urine Urobilinogen 0.2 mg/dL (0.2-1.0); Urine pH 7.5 (5.0-7.0)
[2021-09-07 10:22] LABS: UR PROTEIN 390.5 mg/dL (<11.9); Urine Protein/Creatinine Ratio 20.55 ratio (<0.15)
[2021-09-07] MEDS: AMLODIPINE 10 MG TAB FT SCH (10:42)
[2021-09-07] MEDS: GABAPENTIN 300 MG CAP FT SCH ×2 (10:42→20:33)
[2021-09-07] MEDS: TAMSULOSIN 0.4 MG SR CAP PO SCH (10:42)
[2021-09-07] MEDS: ESCITALOPRAM 20 MG TAB FT SCH (10:42)
[2021-09-07] MEDS: DOCUSATE NA 100 MG CAP PO SCH ×2 (10:43→20:33)
[2021-09-07] MEDS: AMILORIDE HCL 5 MG TABLET PO SCH (10:49)
[2021-09-07 11:18] LABS: Urine Bacteria NONE SEEN /HPF (NONE SEEN); Urine Mucus N /HPF (NONE SEEN); Urine RBC NONE SEEN /HPF (NONE SEEN)
--- NOTE | 2021-09-07 19:43 | P.PN ---
Date of Service: 09/07/21 Vital Signs Temp Pulse Resp BP Pulse Ox 97.0 F 52 16 153/70 H 99 09/07/21 16:00 09/07/21 16:00 09/07/21 16:00 09/07/21 16:00 09/07/21 16:00 Medications Acetaminophen (Acetaminophen 500 Mg Tab) 500 mg PO Q6H PRN PRN Reason: Headache Last Admin: 09/06/21 12:08 Dose: 500 mg Documented by: Hydrocodone Bitart/Acetaminophen (Hydrocodone/Apap 5/325 Mg Tab) 1 tab PO Q8HP PRN PRN Reason: Pain scale 5-7 (Moderate) Last Admin: 09/03/21 17:03 Dose: 1 tab Documented by: Amlodipine Besylate (Amlodipine 10 Mg Tab) 10 mg FT DAILY [facility] Last Admin: 09/07/21 10:42 Dose: 10 mg Documented by: Aspirin (Aspirin Ec 81 Mg Tab) 81 mg PO BEDTIME [facility] Last Admin: 09/03/21 20:17 Dose: 81 mg Documented by: Clonidine HCl (Clonidine 0.1 Mg/Patch) 0.1 mg TD EVERY 7TH DAY [facility] Last Admin: 09/03/21 08:18 Dose: 0.1 mg Documented by: Clopidogrel Bisulfate (Clopidogrel 75 Mg Tablet) 75 mg FT DAILY [facility] Last Admin: 09/07/21 10:43 Dose: 75 mg Documented by: Docusate Sodium (Docusate Na 100 Mg Cap) 100 mg PO BID [facility] Last Admin: 09/07/21 10:43 Dose: 100 mg Documented by: Enteral Nutritional Formula (Nepro 1,000 Ml Bot) 237 ml FT QID [facility] Last Admin: 09/07/21 16:33 Dose: Not Given Documented by: Escitalopram Oxalate (Escitalopram 20 Mg Tab) 40 mg FT DAILY [facility] Last Admin: 09/07/21 10:42 Dose: 40 mg Documented by: Furosemide (Furosemide 40 Mg/4 Ml Vial) 40 mg IV Q12HR [facility] Gabapentin (Gabapentin 300 Mg Cap) 300 mg FT BID [facility] Last Admin: 09/07/21 10:42 Dose: 300 mg Documented by: Glucagon (Glucagon 1 Mg/Vial) 1 mg IM 1X PRN; Protocol PRN Reason: HYPOGLYCEMIA Guaifenesin/Dextromethorphan (Guaifenesin/Dm 5 Ml Ucup) 15 ml PO QID PRN PRN Reason: COUGH Last Admin: 09/06/21 12:02 Dose: 15 ml Documented by: Hydralazine HCl (Hydralazine Hcl 20 Mg/Ml Vial) 10 mg IV Q6HP PRN PRN Reason: HIGHBP Last Admin: 09/06/21 17:27 Dose: 10 mg Documented by: Dextrose (Dextrose 10% Water Iv Soln.) 125 mls @ 0 mls/hr IV PRN PRN; Protocol PRN Reason: HYPOGLYCEMIA Insulin Human Regular (Insulin -Regular Human 50 Unit/0.5 Ml Ml) 0 unit SQ ACHS [facility]; Protocol Last Admin: 09/07/21 16:25 Dose: Not Given Documented by: Levalbuterol HCl (Levalbuterol 0.63 Mg/3 Ml Neb) 0.63 mg NEB [id number] PRN PRN Reason: SHORTNESS OF BREATH Last Admin: 09/07/21 07:50 Dose: 0.63 mg Documented by: Ondansetron HCl (Ondansetron 4 Mg (Odt) Tab) 4 mg FT Q8H PRN PRN Reason: NAUSEA / VOMITING Pantoprazole Sodium (Pantoprazole (Granules) 40 Mg/Blist Packet) 40 mg FT DAILYAC [facility]; Protocol Last Admin: 09/07/21 05:46 Dose: Not Given Documented by: Sucralfate (Sucralfate 1gm/10ml Ucup) 0.1 gm FT 0800,1200,1700,2000 [facility] Last Admin: 09/07/21 16:33 Dose: 0.1 gm Documented by: Tamsulosin HCl (Tamsulosin 0.4 Mg Sr Cap) 0.4 mg PO DAILY [facility] Last Admin: 09/07/21 10:42 Dose: 0.4 mg Documented by: Trazodone HCl (Trazodone 150 Mg Tab) 150 mg PO BEDTIME [facility] Last Admin: 09/06/21 20:10 Dose: 150 mg Documented by: Microbiology Results 08/24/21 10:24 Blood - Blood Aerobic Blood Culture - Final No growth in 5 days. 08/24/21 10:24 Blood - Blood Anaerobic Blood Culture - Final No growth in 5 days. 08/24/21 10:34 Blood - Blood Aerobic Blood Culture - Final No growth in 5 days. 08/24/21 10:34 Blood - Blood Anaerobic Blood Culture - Final No growth in 5 days. 08/24/21 12:01 Clean Catch Urine [place] Count - Final >100,000 CFU/ML. 08/24/21 12:01 Clean Catch Urine - Final Pseudomonas Aeruginosa Assessment/ Plan: Nephrology No dyspnea No chest pain No acute events overnight Vitals, medications, blood work and imaging reviewed in the chart. General: In no apparent distress, Oriented x2, Cooperative HEENT: Atraumatic Neck: Supple Respiratory: Clear to auscultation bilaterally Cardiovascular: Regular rate/rhythm, Edema Gastrointestinal: Non-distended, No guarding Musculoskeletal: No clubbing, No contractures Integumentary: No rashes, No cyanosis Neurological: Normal speech External genitalia: Edema Blood work reviewed in the chart. Imagings Data: EXAM DESCRIPTION: US - Urinary Bladder - 08/25/2021 2:24 pm FINDINGS: Holcomb catheter is in place. Urinary bladder is fully contracted precluding any assessment of the bladder edwards. Volume was 3 milliliters. EXAM DESCRIPTION: RAD - Chest Pa And Lat (2 Views) - 08/25/2021 4:23 pm CLINICAL HISTORY: pleural effusion COMPARISON: Portable 08/24/2021, 06/28/2021 and 07/07/2021 TECHNIQUE: Frontal and lateral views of the chest were obtained. FINDINGS: Prominent baseline interstitial pattern noted. Sternotomy wires remain in place. No new tube or line. Bilateral costophrenic angle blunting is present right greater than left. Pleural effusions have been previously diagnosed and right-sided pleural fluid has decreased. Cardiomegaly has shown fractional improvement. Vasculature is slightly less pronounced. Trachea is midline. No pneumothorax. No acute bony finding noted. No aortic abnormality. IMPRESSION: Right-sided pleural fluid appears to be improved somewhat from prior day imaging. Cardiomegaly and vascular engorgement have improved but not resolved. Conclusions/Impression: OSCAR may be CRS CKD III with proteinuria -No NSAIDs -Continue Lasix -Plan for renal bx Hypocalcemia -Consider Vitamin D HTN with CKD/ CHF -Continue Amlodipine and Catapres Diastolic CHF, A/C Pleural effusions -2g Na diet -Continue Lasix 40mg IV q6h -Continue Amiloride BID DM II with CKD -RISS Moderate malnutrition -Continue Nepro through FT -Continue free water through PEG Anemia in chronic illness -Monitor H&H -Transfuse PRBC as needed -Plan for bone marrow bx BPH with LUTS -Continue Flomax -Continue Holcomb Catheter
[2021-09-07] MEDS ORDERED: FUROSEMIDE 40 MG/4 ML VIAL IV SCH (21:00)
[2021-09-07] MEDS: TRAZODONE 150 MG TAB PO SCH (22:07)
[2021-09-08] MEDS: Pantoprazole (granules) 40 MG/BLIST PACKET FT SCH (05:55)
[2021-09-08 07:00] LABS: Hematocrit 26.3 % (39.6-49.0); Lymphocytes % 17.6 % (15.3-44.8); MPV 10.5 fL (7.6-11.3); RBC Red Blood Cell Count 3.57 M/uL (4.33-5.43)
[2021-09-08 07:03] LABS: Magnesium 3.2 mg/dL (1.8-2.4)
[2021-09-08 07:06] LABS: Potassium 5.8 mmol/L (3.5-5.1)
[2021-09-08] MEDS: INSULIN -REGULAR HUMAN 50 UNIT/0.5 ML ML SQ SCH ×4 (07:30→21:00)
[2021-09-08] MEDS ORDERED: D50W 25 GM/50 ML SYRINGE IV PRN (07:56)
[2021-09-08] MEDS ORDERED: FUROSEMIDE 40 MG/4 ML VIAL IV ONE (07:56)
[2021-09-08] MEDS ORDERED: INSULIN -REGULAR HUMAN 50 UNIT/0.5 ML ML SQ ONE (07:57)
[2021-09-08] MEDS: SUCRALFATE 1GM/10ML UCUP FT SCH ×4 (08:00→21:21)
[2021-09-08] MEDS ORDERED: D50W 25 GM/50 ML SYRINGE IV ONE (08:10)
[2021-09-08] MEDS: CLOPIDOGREL 75 MG TABLET FT SCH (09:00)
[2021-09-08] MEDS: NEPRO 1,000 ML BOT FT SCH ×4 (09:00→21:52)
[2021-09-08] MEDS: GABAPENTIN 300 MG CAP FT SCH ×2 (09:00→21:21)
[2021-09-08] MEDS: DOCUSATE NA 100 MG CAP PO SCH ×2 (09:00→21:21)
[2021-09-08] MEDS ORDERED: MIDAZOLAM HCL 2 MG/2 ML INJ ONE (09:45)
[2021-09-08] MEDS ORDERED: ATROPINE SULF 1 MG/10 ML SYR IV ONE (09:45)
[2021-09-08] MEDS ORDERED: FLUMAZENIL 0.1 MG/ML (5 mL VIAL) IV ONE (09:45)
[2021-09-08] MEDS ORDERED: FENTANYL CITR 100 MCG/2 ML ONE (09:45)
[2021-09-08] MEDS ORDERED: METOPROLOL TARTRATE 5 MG/5 ML INJ IV ONE (09:45)
[2021-09-08] MEDS ORDERED: NA CHLORIDE 0.9% 500 ML ONE (09:49)
[2021-09-08 10:55] LABS: COL/EPI ND SECONDS (80-184)
[2021-09-08 10:56] LABS: COL/ADP ND SECONDS (56-102)
--- NOTE | 2021-09-08 13:42 | RAD REPORT ---
EXAM DESCRIPTION: CT - Renal Biopsy CT - 09/08/2021 10:40 am CLINICAL HISTORY: Acute and chronic renal disease TECHNIQUE: The risks, benefits alternatives to the procedure were explained to the patient and infor med consent obtained Conscious sedation was performed for approximately 30 minutes. A nurse monitored vital signs througho ut the examination 1.5 milligrams Versed and 50 micrograms fentanyl administered intravenously All CT scans are performed using dose optimization technique as appropriate and may include automated exposure control or mA/KV adjustment according to patient size. The skin, subcutaneous tissue and musculature were anesthetized Lidocaine. Under CT guidance a 17 gauge needle was placed into the posterior aspect of the lower pole of the lef t kidney. An 18 gauge needle was then placed through this and 2 two centimeter core specimens obtaine d and given to pathology The post biopsy images do not demonstrate a minimal perirenal hematoma IMPRESSION: Core biopsies of the left kidney
[2021-09-08] MEDS: ESCITALOPRAM 20 MG TAB FT SCH (15:30)
[2021-09-08] MEDS: TAMSULOSIN 0.4 MG SR CAP PO SCH (15:30)
[2021-09-08] MEDS: AMLODIPINE 10 MG TAB FT SCH (15:34)
[2021-09-08] MEDS: FUROSEMIDE 40 MG/4 ML VIAL IV SCH ×2 (15:36→17:45)
[2021-09-08] MEDS: LEVALBUTEROL 0.63 MG/3 ML NEB NEB PRN (19:36)
--- NOTE | 2021-09-08 21:17 | P.PN ---
Date of Service: 09/08/21 Vital Signs Temp Pulse Resp BP Pulse Ox 97.0 F 56 18 142/57 H 97 09/08/21 16:00 09/08/21 17:45 09/08/21 16:00 09/08/21 17:45 09/08/21 16:00 Medications Acetaminophen (Acetaminophen 500 Mg Tab) 500 mg PO Q6H PRN PRN Reason: Headache Last Admin: 09/06/21 12:08 Dose: 500 mg Documented by: Hydrocodone Bitart/Acetaminophen (Hydrocodone/Apap 5/325 Mg Tab) 1 tab PO Q8HP PRN PRN Reason: Pain scale 5-7 (Moderate) Last Admin: 09/03/21 17:03 Dose: 1 tab Documented by: Amlodipine Besylate (Amlodipine 10 Mg Tab) 10 mg FT DAILY [facility] Last Admin: 09/08/21 15:34 Dose: 10 mg Documented by: Aspirin (Aspirin Ec 81 Mg Tab) 81 mg PO BEDTIME [facility] Last Admin: 09/03/21 20:17 Dose: 81 mg Documented by: Clonidine HCl (Clonidine 0.1 Mg/Patch) 0.1 mg TD EVERY 7TH DAY [facility] Last Admin: 09/03/21 08:18 Dose: 0.1 mg Documented by: Clopidogrel Bisulfate (Clopidogrel 75 Mg Tablet) 75 mg FT DAILY [facility] Last Admin: 09/08/21 09:00 Dose: Not Given Documented by: Dextrose (D50w 25 Gm/50 Ml Syringe) 12.5 gm IV PRN PRN; Protocol PRN Reason: HYPOGLYCEMIA Docusate Sodium (Docusate Na 100 Mg Cap) 100 mg PO BID [facility] Last Admin: 09/08/21 09:00 Dose: Not Given Documented by: Enteral Nutritional Formula (Nepro 1,000 Ml Bot) 237 ml FT QID [facility] Last Admin: 09/08/21 17:00 Dose: Not Given Documented by: Escitalopram Oxalate (Escitalopram 20 Mg Tab) 40 mg FT DAILY [facility] Last Admin: 09/08/21 15:30 Dose: 40 mg Documented by: Furosemide (Furosemide 40 Mg/4 Ml Vial) 40 mg IV Q8HR [facility] Last Admin: 09/08/21 17:45 Dose: 40 mg Documented by: Gabapentin (Gabapentin 300 Mg Cap) 300 mg FT BID [facility] Last Admin: 09/08/21 09:00 Dose: Not Given Documented by: Glucagon (Glucagon 1 Mg/Vial) 1 mg IM 1X PRN; Protocol PRN Reason: HYPOGLYCEMIA Guaifenesin/Dextromethorphan (Guaifenesin/Dm 5 Ml Ucup) 15 ml PO QID PRN PRN Reason: COUGH Last Admin: 09/06/21 12:02 Dose: 15 ml Documented by: Hydralazine HCl (Hydralazine Hcl 20 Mg/Ml Vial) 10 mg IV Q6HP PRN PRN Reason: HIGHBP Last Admin: 09/06/21 17:27 Dose: 10 mg Documented by: Dextrose (Dextrose 10% Water Iv Soln.) 125 mls @ 0 mls/hr IV PRN PRN; Protocol PRN Reason: HYPOGLYCEMIA Last Admin: 09/08/21 11:08 Dose: 125 mls Documented by: Insulin Human Regular (Insulin -Regular Human 50 Unit/0.5 Ml Ml) 0 unit SQ ACHS [facility]; Protocol Last Admin: 09/08/21 16:30 Dose: Not Given Documented by: Levalbuterol HCl (Levalbuterol 0.63 Mg/3 Ml Neb) 0.63 mg NEB [id number] PRN PRN Reason: SHORTNESS OF BREATH Last Admin: 09/08/21 19:36 Dose: 0.63 mg Documented by: Ondansetron HCl (Ondansetron 4 Mg (Odt) Tab) 4 mg FT Q8H PRN PRN Reason: NAUSEA / VOMITING Pantoprazole Sodium (Pantoprazole (Granules) 40 Mg/Blist Packet) 40 mg FT DAILYAC [facility]; Protocol Last Admin: 09/08/21 05:55 Dose: Not Given Documented by: Sucralfate (Sucralfate 1gm/10ml Ucup) 0.1 gm FT 0800,1200,1700,2000 [facility] Last Admin: 09/08/21 17:44 Dose: 0.1 gm Documented by: Tamsulosin HCl (Tamsulosin 0.4 Mg Sr Cap) 0.4 mg PO DAILY [facility] Last Admin: 09/08/21 15:30 Dose: 0.4 mg Documented by: Trazodone HCl (Trazodone 150 Mg Tab) 150 mg PO BEDTIME [facility] Last Admin: 09/07/21 22:07 Dose: 150 mg Documented by: Microbiology Results 08/24/21 10:24 Blood - Blood Aerobic Blood Culture - Final No growth in 5 days. 08/24/21 10:24 Blood - Blood Anaerobic Blood Culture - Final No growth in 5 days. 08/24/21 10:34 Blood - Blood Aerobic Blood Culture - Final No growth in 5 days. 08/24/21 10:34 Blood - Blood Anaerobic Blood Culture - Final No growth in 5 days. 08/24/21 12:01 Clean Catch Urine [place] Count - Final >100,000 CFU/ML. 08/24/21 12:01 Clean Catch Urine - Final Pseudomonas Aeruginosa Assessment/ Plan: Nephrology No dyspnea No chest pain No acute events overnight Vitals, medications, blood work and imaging reviewed in the chart. General: In no apparent distress, Oriented x2, Cooperative HEENT: Atraumatic Neck: Supple Respiratory: Clear to auscultation bilaterally Cardiovascular: Regular rate/rhythm, Edema Gastrointestinal: Non-distended, No guarding Musculoskeletal: No clubbing, No contractures Integumentary: No rashes, No cyanosis Neurological: Normal speech External genitalia: Edema Blood work reviewed in the chart. Imagings Data: EXAM DESCRIPTION: US - Urinary Bladder - 08/25/2021 2:24 pm FINDINGS: Holcomb catheter is in place. Urinary bladder is fully contracted pre cluding any assessment of the bladder edwards. Volume was 3 milliliters. EXAM DESCRIPTION: RAD - Chest Pa And Lat (2 Views) - 08/25/2021 4:23 pm CLINICAL HISTORY: pleural effusion COMPARISON: Portable 08/24/2021, 06/28/2021 and 07/07/2021 TECHNIQUE: Frontal and lateral views of the chest were obtained. FINDINGS: Prominent baseline interstitial pattern noted. Sternotomy wires remain in place. No new tube or line. Bilateral costophrenic angle blunting is present right greater than left. Pleural effusions have been previously diagnosed and right-sided pleural fluid has decreased. Cardiomegaly has shown fractional improvement. Vasculature is slightly less pronounced. Trachea is midline. No pneumothorax. No acute bony finding noted. No aortic abnormality. IMPRESSION: Right-sided pleural fluid appears to be improved somewhat from prior day imaging. Cardiomegaly and vascular engorgement have improved but not resolved. Conclusions/Impression: OSCAR may be CRS CKD III with proteinuria -No NSAIDs -Hold lasix at this time -Renal bx today Hyperkalemia -Kayexalate X1 Hypocalcemia -Consider Vitamin D HTN with CKD/ CHF -Continue Amlodipine and Catapres Diastolic CHF, A/C Pleural effusions -2g Na diet -Hold Lasix DM II with CKD -RISS Moderate malnutrition -Continue Nepro through FT -Continue free water through PEG Anemia in chronic illness -Monitor H&H -Transfuse PRBC as needed -Plan for bone marrow bx BPH with LUTS -Continue Flomax -Continue Holcomb Catheter
[2021-09-08] MEDS: TRAZODONE 150 MG TAB PO SCH (21:21)
[2021-09-08] MEDS ORDERED: SOD POLYSTYREN SUL 15 GM/60 ML UCUP FT ONE (21:30)
[2021-09-08 21:41] LABS: Potassium 6.2 mmol/L (3.5-5.1)
[2021-09-09] MEDS ORDERED: D10W 0 ML IV ONE (02:40)
[2021-09-09] MEDS ORDERED: CALCIUM GLUC 10% INJ 4.65 MEQ in NA CHLORIDE 0.9% 100 ML IV ONE (02:50)
[2021-09-09] MEDS ORDERED: CALCIUM GLUCONATE 1 GM IVPB 0 GM/0 ML BAG IV ONE (03:21)
[2021-09-09] MEDS: CALCIUM CARBONATE 500 MG TAB PO SCH (03:39)
[2021-09-09 03:52] LABS: Absolute Lymphocytes (CBC) 0.9 K/uL (0.7-4.9); Hematocrit 23.7 % (39.6-49.0); Lymphocytes % 16.8 % (15.3-44.8); MPV 10.7 fL (7.6-11.3); RBC Red Blood Cell Count 3.22 M/uL (4.33-5.43)
[2021-09-09 04:03] LABS: Potassium 5.7 mmol/L (3.5-5.1)
[2021-09-09 04:10] LABS: Uric Acid 7.9 mg/dL (3.5-7.2)
[2021-09-09] MEDS: Pantoprazole (granules) 40 MG/BLIST PACKET FT SCH (05:57)
[2021-09-09 07:03] LABS: Potassium 5.8 mmol/L (3.5-5.1)
[2021-09-09] MEDS: INSULIN -REGULAR HUMAN 50 UNIT/0.5 ML ML SQ SCH ×4 (07:30→20:35)
[2021-09-09] MEDS: SUCRALFATE 1GM/10ML UCUP FT SCH ×4 (09:01→20:33)
[2021-09-09] MEDS: GABAPENTIN 300 MG CAP FT SCH ×2 (09:02→20:34)
[2021-09-09] MEDS: TAMSULOSIN 0.4 MG SR CAP PO SCH (09:02)
[2021-09-09] MEDS: DOCUSATE NA 100 MG CAP PO SCH ×2 (09:02→20:34)
[2021-09-09] MEDS: AMLODIPINE 10 MG TAB FT SCH (09:02)
[2021-09-09] MEDS: ESCITALOPRAM 20 MG TAB FT SCH (09:03)
[2021-09-09] MEDS: NEPRO 1,000 ML BOT FT SCH ×4 (09:03→20:34)
[2021-09-09] MEDS: CLOPIDOGREL 75 MG TABLET FT SCH (09:03)
[2021-09-09] MEDS: GUAIFENESIN/DM 5 ML UCUP PO PRN (09:19)
[2021-09-09] MEDS ORDERED: FUROSEMIDE 40 MG/4 ML VIAL IV ONE (15:00)
[2021-09-09] MEDS ORDERED: SOD POLYSTYREN SUL 15 GM/60 ML UCUP FT ONE (15:00)
[2021-09-09] MEDS ORDERED: EPOETIN ALFA 10,000 UNIT/ML VIAL IV ONE (15:00)
--- NOTE | 2021-09-09 16:05 | PN ---
Date of Progress Note: 09/09/2021 Subjective: The patient is seen in room 229 at [facility]. The patien t is alert, awake, comfortable, able to answer some questions. He is frail and has ability to answer questions. Says that he is not back to his baseline with his breathing, still some mild shortness o f breath. Remembers that he had a renal biopsy done. He denies any headache, nausea, vomiting curre ntly. He says he is feeling overall good except that he is slightly more short of breath than his us ual, which is somewhat improving overall and it is perhaps stable compared to yesterday. Objective: Vital Signs: His vitals are otherwise stable. Blood pressure 137/62, pulse has been run grabiel between 50 to 56 regular, respirations around 14 to 16 and comfortable, O2 sats are about 98% on 2 L nasal cannula. Lungs: Clear to auscultation anteriorly with few crackles at the very bases. Abdomen: Soft. Extremities: Reveal trace edema at the ankles. Heart: Sounds are regular. Medications: Reviewed. The patient is currently on amlodipine. He is off Lasix currently. He is o n gabapentin. He has hydralazine as needed p.r.n. He has also got tamsulosin and trazodone. Laboratory Data: Reviewed. The patient's WBC count is 5.2, hemoglobin 7.5, hematocrit 23.7, platele t count 140. Sodium 140, potassium 5.8, reasonably stable compared to yesterday when it was 5.7, chl oride 104, bicarb 27, BUN 27, creatinine 2.82. Yesterday, creatinine was 2.93. Assessment And Plan: The patient with chronic kidney disease, question some component of acute kidne y injury, volume overload, hyperkalemia. 1.Acute kidney injury. The patient overall looks stable. Continue to avoid NSAIDs. The patient pérez s been holding Lasix at this point, but we will go ahead and give him a dose of 40 mg today. Has had renal biopsy results pending. 2.Hyperkalemia, stable compared to yesterday. We will go ahead and do a Kayexalate dose again. We will give a dose of Lasix, which should also help with the hyperkalemia. 3.Hypocalcemia. Continue to monitor. Vitamin D supplement okay to take. 4.Hypertension. The patient currently on amlodipine and Catapres. Also get a dose of Lasix. Radhames nue to monitor. 5.Diastolic congestive heart failure, pleural effusions. The patient is on a low-potassium diet. G pau 1 dose of Lasix. Continue monitor with BMP in the morning. Encourage p.o. intake, p.r.n. Procr it. His hemoglobin is down to 7.5. We will go ahead and give him Procrit dose now. Also Oncology f irais. /ERLIN Voice ID: [id number] Report ID: [id number]
[2021-09-09] MEDS: TRAZODONE 150 MG TAB PO SCH (20:34)
[2021-09-10 04:38] LABS: Hematocrit 23.5 % (39.6-49.0); Lymphocytes % 16.3 % (15.3-44.8); MPV 10.6 fL (7.6-11.3); RBC Red Blood Cell Count 3.25 M/uL (4.33-5.43)
[2021-09-10 05:03] LABS: Potassium 5.5 mmol/L (3.5-5.1)
[2021-09-10] MEDS: Pantoprazole (granules) 40 MG/BLIST PACKET FT SCH (06:00)
[2021-09-10] MEDS: INSULIN -REGULAR HUMAN 50 UNIT/0.5 ML ML SQ SCH ×4 (07:30→20:51)
[2021-09-10] MEDS: SUCRALFATE 1GM/10ML UCUP FT SCH ×4 (09:01→20:42)
[2021-09-10] MEDS: DOCUSATE NA 100 MG CAP PO SCH ×2 (09:01→20:44)
[2021-09-10] MEDS: CLONIDINE 0.1 MG/PATCH TD SCH (09:01)
[2021-09-10] MEDS: AMLODIPINE 10 MG TAB FT SCH (09:02)
[2021-09-10] MEDS: TAMSULOSIN 0.4 MG SR CAP PO SCH (09:02)
[2021-09-10] MEDS: CLOPIDOGREL 75 MG TABLET FT SCH (09:02)
[2021-09-10] MEDS: NEPRO 1,000 ML BOT FT SCH ×4 (09:02→20:45)
[2021-09-10] MEDS: GABAPENTIN 300 MG CAP FT SCH ×2 (09:02→20:45)
[2021-09-10] MEDS: ESCITALOPRAM 20 MG TAB FT SCH (09:02)
[2021-09-10] MEDS: CALCIUM CARBONATE 500 MG TAB PO SCH (09:02)
[2021-09-10] MEDS: HYDRALAZINE HCL 10 MG TABLET PO SCH ×2 (13:31→20:44)
[2021-09-10] MEDS ORDERED: SOD POLYSTYREN SUL 15 GM/60 ML UCUP PO ONE (14:00)
--- NOTE | 2021-09-10 16:26 | PN ---
Date of Progress Note: 09/10/2021 Subjective: The patient is alert, awake. Says his breathing is comfortable compared to yesterday. He is feeling stable. He has no swelling in his legs. He is not on any oxygen. Objective: Vital Signs: His O2 sats are close to 97% to 99% on room air. His blood pressures are r easonably stable, but have been a little bit on the higher side between 139 to 167 systolic. Last bl ood pressure was 139/63. Pulse has been between 50 to 98, last pulse was about 53. On my exam kush odell, the patient's pulse is regular at about 60. Respirations are around 16 and comfortable. He is afebrile. Lungs: Clear. Abdomen: Soft. Extremities: Do not reveal any edema. The patient is generally weak, unable to walk or get out of b ed on his own. This is not something new for him. Laboratory Data: Labs reviewed. The patient's labs show hemoglobin at about 7.6, which is relativel y stable from yesterday at 7.5. He did have a small drop from 8.4 to 7.5. The patient has had a cata al biopsy on September 08. His platelet count is reasonable at 136. It is reasonably stable, but l ittle bit on the lower side. His chemistries show sodium 140, potassium is slightly elevated at 5.5, chloride 108, bicarb is 28, BUN is 132, creatinine is 2.72, glucose is 126. Medications: Reviewed. The patient is currently not on any magnesium supplements or milk of magnesi a. He is not on any multivitamins that show magnesium. He is tolerating p.o. intake reasonably well today. Assessment And Plan: The patient with acute kidney injury on chronic kidney disease. The patient is alert, awake. Renal biopsy has been done. Results are pending at this point. The patient denies a ny new complaints. Today, his blood pressure has been slightly on the higher side and his potassium has been running slightly on the higher side also. The patient's diuretics have been stopped. He do es not seem to have any volume overload. His breathing is comfortable. Skin is dry. He has no renzo a and his BUN did go up slightly from yesterday. Part of it could be increased urea appearance from his recent renal biopsy. His hemoglobin is stable as compared to yesterday. Did have a slight drop from day before yesterday to yesterday. 1.Acute kidney injury. The patient overall stable. Hemoglobin is stable. Kidney biopsy has been d one. Results are pending. Volume status seems to close to euvolemic. Encourage p.o. intake. If th e patient does have poor p.o. intake, may need to give him some IV fluids. Clinically stable at this point. Continue to monitor. 2.Hyperkalemia. Potassium has gone up slightly to 5.5. We will give another dose of Kayexalate. A voiding diuretics given that the patient is euvolemic to slightly volume depleted. 3.Hypercalcemia, on vitamin D. Continue supplement. 4.Hypertension. The patient's blood pressure has been slightly on the higher side. He is on amlodi pine, on Catapres. We will go ahead and add a slight dose of hydralazine 10 mg p.o. b.i.d. If the p atient's pulse goes below 50, we will consider discontinuing Catapres. 5.Diastolic congestive heart failure. At this point, the patient's volume status seems to be close to euvolemic. On clinical exam, he has no edema. His lungs are clear. His O2 sats are reasonable o n room air. Continue to monitor. 6.Hemoglobin in the 7 range, reasonably stable compared to yesterday. Had a Procrit dose yesterday. We will consider giving further Procrit as needed. Hopefully, the hemoglobin will improve. Some o f the drop may have been post biopsy. /ERLIN Voice ID: [id number] Report ID: [id number]
[2021-09-10] MEDS: TRAZODONE 150 MG TAB PO SCH (20:45)
--- NOTE | 2021-09-11 02:35 | P.PN ---
Date of Service: 09/07/21 Subjective Patient is scheduled for renal biopsy tomorrow. Patient clinical symptoms continue to improve. Review of Systems 10-point ROS is otherwise unremarkable Physical Examination - Vital Signs Reviewed - Physical Exam General: Alert, In no apparent distress, Oriented x3, Cachectic Respiratory: Clear to auscultation bilaterally, Normal air movement Cardiovascular: Regular rate/rhythm, Normal S1 S2, No murmurs Gastrointestinal: Normal bowel sounds, Soft and benign, Non-distended, No tende rness Musculoskeletal: No clubbing, No swelling Neurological: Sensation intact, Cranial nerves 3-12 intact Assessment & Plan - Problems (Diagnosis) (1) CHF exacerbation Current Visit: No Status: Acute Heart failure type: combined systolic and diastolic Qualified Code(s): I50.43 - Acute on chronic combined systolic (congestive) and diastolic (congestive) heart failure (2) Cardiomyopathy Current Visit: No Status: Acute (3) Depression Current Visit: No Status: Acute (4) Diabetes Current Visit: No Status: Acute Qualifiers: Diabetes mellitus type: type 2 Diabetes mellitus group home insulin use: with long term care social worker use Diabetes mellitus complication status: without complication Qualified Code(s): E11.9 - Type 2 diabetes mellitus without complications; 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 (5) S/P percutaneous endoscopic gastrostomy (PEG) tube placement Current Visit: No Status: Acute (6) Anemia Onset Date: 11/05/16 Current Visit: No Status: Chronic (7) Hypertension Onset Date: 11/05/16 Current Visit: No Status: Chronic Qualifiers: Hypertension type: primary hypertension Qualified Code(s): I10 - Essential (primary) hypertension (8) Congestive heart failure Current Visit: No Status: Acute Qualifiers: Heart failure type: systolic Heart failure chronicity: acute on chronic Qualified Code(s): I50.23 - Acute on chronic systolic (congestive) heart failure - Plan Continue with plan of care as mentioned below: 1. Continue with diuresing; change Holcomb catheter 2. Awaiting for renal biopsy; spoke to radiology and plan to do it on Saturday 3. Hematology spoke to patient. Patient still wanting renal biopsy. Prognosis is poor because of performance status is very poor. 4. Strict blood pressure and blood sugar control 5. Monitor labs closely 6. GI and DVT prophylaxis Discharge Plan: Home Plan to discharge in: Greater than 2 days - Advance Directives Does patient have a Living Will: No Does patient have a Durable POA for Healthcare: No - Code Status/Comfort Care Code Status: Full Code Physician Review: Patient Assessed, Agree with Above Assessment and Plan Critical Care: No Time Spent Managing PTS Care (In Minutes): 45
--- NOTE | 2021-09-11 02:40 | P.PN ---
Date of Service: 09/08/21 Subjective Biopsy performed. Patient clinical symptoms are improving. Patient much more awake and alert. Patient eating better. Patient is wanting to go to a alf facility if not accepted to rehab. He actually has not been getting along with his significant other. Review of Systems 10-point ROS is otherwise unremarkable Physical Examination - Vital Signs Reviewed - Physical Exam General: Alert, In no apparent distress, Oriented x3, Cachectic Respiratory: Clear to auscultation bilaterally, Normal air movement Cardiovascular: Regular rate/rhythm, Normal S1 S2, No murmurs Gastrointestinal: Normal bowel sounds, Soft and benign, Non-distended, No tenderness Musculoskeletal: No clubbing, No swelling Neurological: Sensation intact, Cranial nerves 3-12 intact; generalized weakness; severe myalgia Assessment & Plan - Problems (Diagnosis) (1) CHF exacerbation Current Visit: No Status: Acute Heart failure type: combined systolic and diastolic Qualified Code(s): I50.43 - Acute on chronic combined systolic (congestive) and diastolic (congestive) heart failure (2) Cardiomyopathy Current Visit: No Status: Acute (3) Depression Current Visit: No Status: Acute (4) Diabetes Current Visit: No Status: Acute Qualifiers: Diabetes mellitus type: type 2 Diabetes mellitus fci insulin use: with intermediate accountant use Diabetes mellitus complication status: without complication Qualified Code(s): E11.9 - Type 2 diabetes mellitus without complications; Z79.4 - assisted (current) use of insulin (5) S/P percutaneous endoscopic gastrostomy (PEG) tube placement Current Visit: No Status: Acute (6) Anemia Onset Date: 11/05/16 Current Visit: No Status: Chronic (7) Hypertension Onset Date: 11/05/16 Current Visit: No Status: Chronic Qualifiers: Hypertension type: primary hypertension Qualified Code(s): I10 - Essential (primary) hypertension (8) Congestive heart failure Current Visit: No Status: Acute Qualifiers: Heart failure type: systolic Heart failure chronicity: acute on chronic Qualified Code(s): I50.23 - Acute on chronic systolic (congestive) heart failure - Plan Continue with plan of care as mentioned below: 1. Continue with diuresing; change Holcomb catheter 2. Status post renal biopsy; awaiting for results 3. Appreciate hematology input. Patient with no treatment until performance status improves. 4. Strict blood pressure and blood sugar control 5. Hep-Lock IV 6. GI and DVT prophylaxis Discharge Plan: Home Plan to discharge in: Greater than 2 days - Advance Directives Does patient have a Living Will: No Does patient have a Durable POA for Healthcare: No - Code Status/Comfort Care Code Status: Full Code Physician Review: Patient Assessed, Agree with Above Assessment and Plan Critical Care: No Time Spent Managing PTS Care (In Minutes): 45
--- NOTE | 2021-09-11 02:41 | P.PN ---
Date of Service: 09/09/21 Subjective Patient clinically doing well. Waiting for inpatient placement. Continue with supportive care. Diet as tolerated. Renal function is slowly worsening. Spoke to nephrology. Making changes to medications with hyperkalemia Review of Systems 10-point ROS is otherwise unremarkable Physical Examination - Vital Signs Reviewed - Physical Exam General: Alert, In no apparent distress, Oriented x3, Cachectic Respiratory: Clear to auscultation bilaterally, Normal air movement Cardiovascular: Regular rate/rhythm, Normal S1 S2, No murmurs Gastrointestinal: Normal bowel sounds, Soft and benign, Non-distended, No tenderness Musculoskeletal: No clubbing, No swelling Neurological: Sensation intact, Cranial nerves 3-12 intact; generalized weakness; severe myalgia Assessment & Plan - Problems (Diagnosis) (1) CHF exacerbation Current Visit: No Status: Acute Heart failure type: combined systolic and diastolic Qualified Code(s): I50.43 - Acute on chronic combined systolic (congestive) and diastolic (congestive) heart failure (2) Cardiomyopathy Current Visit: No Status: Acute (3) Depression Current Visit: No Status: Acute (4) Diabetes Current Visit: No Status: Acute Qualifiers: Diabetes mellitus type: type 2 Diabetes mellitus prison insulin use: with balloon design printer use Diabetes mellitus complication status: without complication Qualified Code(s): E11.9 - Type 2 diabetes mellitus without complications; Z79.4 - jail (current) use of insulin (5) S/P percutaneous endoscopic gastrostomy (PEG) tube placement Current Visit: No Status: Acute (6) Anemia Onset Date: 11/05/16 Current Visit: No Status: Chronic (7) Hypertension Onset Date: 11/05/16 Current Visit: No Status: Chronic Qualifiers: Hypertension type: primary hypertension Qualified Code(s): I10 - Essential (primary) hypertension (8) Congestive heart failure Current Visit: No Status: Acute Qualifiers: Heart failure type: systolic Heart failure chronicity: acute on chronic Qualified Code(s): I50.23 - Acute on chronic systolic (congestive) heart failure - Plan Continue with plan of care as mentioned below: 1. Continue with diuretics 2. Status post renal biopsy; awaiting for results 3. Appreciate hematology input. Patient with no treatment until performance status improves. 4. Strict blood pressure and blood sugar control 5. Hep-Lock IV 6. GI and DVT prophylaxis Discharge Plan: Home Plan to discharge in: Greater than 2 days - Advance Directives Does patient have a Living Will: No Does patient have a Durable POA for Healthcare: No - Code Status/Comfort Care Code Status: Full Code Physician Review: Patient Assessed, Agree with Above Assessment and Plan Critical Care: No Time Spent Managing PTS Care (In Minutes): 45
--- NOTE | 2021-09-11 02:45 | P.PN ---
Date of Service: 09/10/21 Subjective Patient is doing well with no new complaints. Patient's clinical symptoms are stable. Diet as tolerated. However, patient significantly uremic. Patient is waiting for inpatient rehab placement. If doesn't qualify patient wanting to go to shelter facility. Long-term prognosis is poor. Review of Systems 10-point ROS is otherwise unremarkable Physical Examination - Vital Signs Reviewed - Physical Exam General: Alert, In no apparent distress, Oriented x3, Cachectic Respiratory: Clear to auscultation bilaterally, Normal air movement Cardiovascular: Regular rate/rhythm, Normal S1 S2, No murmurs Gastrointestinal: Normal bowel sounds, Soft and benign, Non-distended, No tender ness Musculoskeletal: No clubbing, No swelling Neurological: Sensation intact, Cranial nerves 3-12 intact; generalized weakness; severe myalgia Assessment & Plan - Problems (Diagnosis) (1) CHF exacerbation Current Visit: No Status: Acute Heart failure type: combined systolic and diastolic Qualified Code(s): I50.43 - Acute on chronic combined systolic (congestive) and diastolic (congestive) heart failure (2) acute on chronic kidney disease with uremia Current Visit: No Status: Acute (3) Depression Current Visit: No Status: Acute (4) Diabetes Current Visit: No Status: Acute Qualifiers: Diabetes mellitus type: type 2 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: with penitentiary use Diabetes mellitus complication status: without complication Qualified Code(s): E11.9 - Type 2 diabetes mellitus without complications; Z79.4 - intermediate manager (current) use of insulin (5) S/P percutaneous endoscopic gastrostomy (PEG) tube placement Current Visit: No Status: Acute (6) Anemia Onset Date: 11/05/16 Current Visit: No Status: Chronic (7) Hypertension Onset Date: 11/05/16 Current Visit: No Status: Chronic Qualifiers: Hypertension type: primary hypertension Qualified Code(s): I10 - Essential (primary) hypertension (8) Congestive heart failure Current Visit: No Status: Acute Qualifiers: Heart failure type: systolic Heart failure chronicity: acute on chronic Qualified Code(s): I50.23 - Acute on chronic systolic (congestive) heart failure - Plan Continue with plan of care as mentioned below: 1. Monitor volume status closely 2. Status post renal biopsy on Saturday; awaiting for results 3. Appreciate hematology input. Patient with no treatment until performance status improves. 4. Strict blood pressure and blood sugar control 5. Hep-Lock IV 6. GI and DVT prophylaxis Discharge Plan: Home Plan to discharge in: Greater than 2 days - Advance Directives Does patient have a Living Will: No Does patient have a Durable POA for Healthcare: No - Code Status/Comfort Care Code Status: Full Code Physician Review: Patient Assessed, Agree with Above Assessment and Plan Critical Care: No Time Spent Managing PTS Care (In Minutes): 45
[2021-09-11] MEDS: Pantoprazole (granules) 40 MG/BLIST PACKET FT SCH (05:38)
[2021-09-11 06:17] LABS: Hematocrit 25.2 % (39.6-49.0); Lymphocytes % 15.4 % (15.3-44.8); MPV 10.5 fL (7.6-11.3); RBC Red Blood Cell Count 3.43 M/uL (4.33-5.43)
[2021-09-11 06:23] LABS: Potassium 5.3 mmol/L (3.5-5.1)
[2021-09-11] MEDS: INSULIN -REGULAR HUMAN 50 UNIT/0.5 ML ML SQ SCH ×4 (07:30→21:00)
[2021-09-11] MEDS: NEPRO 1,000 ML BOT FT SCH ×4 (09:00→21:00)
[2021-09-11] MEDS: SUCRALFATE 1GM/10ML UCUP FT SCH ×4 (09:50→21:20)
[2021-09-11] MEDS: HYDRALAZINE HCL 10 MG TABLET PO SCH ×2 (09:51→21:19)
[2021-09-11] MEDS: AMLODIPINE 10 MG TAB FT SCH ×2 (09:51→21:20)
[2021-09-11] MEDS: DOCUSATE NA 100 MG CAP PO SCH ×2 (09:51→21:19)
[2021-09-11] MEDS: TAMSULOSIN 0.4 MG SR CAP PO SCH (09:51)
[2021-09-11] MEDS: GABAPENTIN 300 MG CAP FT SCH ×2 (09:51→21:19)
[2021-09-11] MEDS: ESCITALOPRAM 20 MG TAB FT SCH (09:51)
[2021-09-11] MEDS: CLOPIDOGREL 75 MG TABLET FT SCH (09:51)
--- NOTE | 2021-09-11 13:03 | P.PN ---
Subjective Date of Service: 09/11/21 Primary Care Provider: Jatinder Chief Complaint: chronic Subjective: No new changes (Admits to anorexia but tolerating liquid intake well) Physical Examination - Vital Signs Temperature: 97.6 F Blood Pressure: 168/72 Pulse: 69 Respirations: 16 Pulse Ox (%): 97 - Studies Medications List Reviewed: Yes Assessment And Plan Physician Review: Patient Assessed, Agree with Above Assessment and Plan Physician Review Additional Text: 09/11/21 13:01 - Physical Exam General: Alert, In no apparent distress, Oriented x3, Cachectic Respiratory: Clear to auscultation bilaterally, Normal air movement Cardiovascular: Regular rate/rhythm, Normal S1 S2, No murmurs Gastrointestinal: Normal bowel sounds, Soft and benign, Non-distended, No tenderness Musculoskeletal: No clubbing, No swelling Neurological: Sensation intact, Cranial nerves 3-12 intact; generalized weakness; severe myalgia Assessment & Plan - Problems (Diagnosis) (1) CHF exacerbation Current Visit: No Status: Acute Heart failure type: combined systolic and diastolic Qualified Code(s): I50.43 - Acute on chronic combined systolic (congestive) and diastolic (congestive) heart failure (2) acute on chronic kidney disease with uremia Current Visit: No Status: Acute (3) Depression Current Visit: No Status: Acute (4) Diabetes Current Visit: No Status: Acute Qualifiers: Diabetes mellitus type: type 2 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 use: with jail use Diabetes mellitus complication status: without complication Qualified Code(s): E11.9 - Type 2 diabetes mellitus without complications; Z79.4 - half-way (current) use of insulin (5) S/P percutaneous endoscopic gastrostomy (PEG) tube placement Current Visit: No Status: Acute (6) Anemia Onset Date: 11/05/16 Current Visit: No Status: Chronic (7) Hypertension Onset Date: 11/05/16 Current Visit: No Status: Chronic Qualifiers: Hypertension type: primary hypertension Qualified Code(s): I10 - Essential (primary) hypertension (8) Congestive heart failure Current Visit: No Status: Acute Qualifiers: Heart failure type: systolic Heart failure chronicity: acute on chronic Qualified Code(s): I50.23 - Acute on chronic systolic (congestive) heart failure - Plan Awaiting discharge plan, refused for acute rehab Family considering taking patient home with home health We will discharge patient home when home DME equipment arranged Awaiting renal biopsy report, nephrology discussed with, can follow as outpatient H&H stable at 8.1, continue to monitor Evaluated by oncology for possible multiple myeloma, plan for outpatient bone marrow biopsy Blood pressure still elevated, will adjust meds Elevated creatinine at 2.5 but relatively stable, follow with nephrology especially mild elevated potassium today Volume status much controlled, off diuretics now Continue glycemic control 5. Hep-Lock IV 6. GI and DVT prophylaxis Discharge Plan: Home Plan to discharge in: In 0 to 1-day, case management on - Advance Directives Does patient have a Living Will: No Does patient have a Durable POA for Healthcare: No - Code Status/Comfort Care Code Status: Full Code Physician Review: Patient Assessed, Agree with Above Assessment and Plan Critical Care: No Time Spent Managing PTS Care (In Minutes): 30
[2021-09-11] MEDS: CHLORTHALIDONE 25 MG TAB PO SCH (13:04)
[2021-09-11] MEDS: TRAZODONE 150 MG TAB PO SCH (21:19)
--- NOTE | 2021-09-11 22:30 | P.PN ---
Date of Service: 09/11/21 Vital Signs Temp Pulse Resp BP Pulse Ox 97.6 F 66 16 166/74 H 97 09/11/21 16:00 09/11/21 21:20 09/11/21 16:00 09/11/21 21:20 09/11/21 16:00 Medications Acetaminophen (Acetaminophen 500 Mg Tab) 500 mg PO Q6H PRN PRN Reason: Headache Last Admin: 09/06/21 12:08 Dose: 500 mg Documented by: Hydrocodone Bitart/Acetaminophen (Hydrocodone/Apap 5/325 Mg Tab) 1 tab PO Q8HP PRN PRN Reason: Pain scale 5-7 (Moderate) Last Admin: 09/03/21 17:03 Dose: 1 tab Documented by: Amlodipine Besylate (Amlodipine 10 Mg Tab) 10 mg FT BID ON LICENSE OF [facility] Last Admin: 09/11/21 21:20 Dose: 10 mg Documented by: Aspirin (Aspirin Ec 81 Mg Tab) 81 mg PO BEDTIME ON LICENSE OF [facility] Last Admin: 09/03/21 20:17 Dose: 81 mg Documented by: Chlorthalidone (Chlorthalidone 25 Mg Tab) 25 mg PO DAILY ON LICENSE OF [facility] Last Admin: 09/11/21 13:04 Dose: 25 mg Documented by: Clonidine HCl (Clonidine 0.1 Mg/Patch) 0.1 mg TD EVERY 7TH DAY ON LICENSE OF [facility] Last Admin: 09/10/21 09:01 Dose: 0.1 mg Documented by: Clopidogrel Bisulfate (Clopidogrel 75 Mg Tablet) 75 mg FT DAILY ON LICENSE OF [facility] Last Admin: 09/11/21 09:51 Dose: 75 mg Documented by: Docusate Sodium (Docusate Na 100 Mg Cap) 100 mg PO BID ON LICENSE OF [facility] Last Admin: 09/11/21 21:19 Dose: 100 mg Documented by: Enteral Nutritional Formula (Nepro 1,000 Ml Bot) 237 ml FT QID ON LICENSE OF [facility] Last Admin: 09/11/21 21:00 Dose: Not Given Documented by: Escitalopram Oxalate (Escitalopram 20 Mg Tab) 40 mg FT DAILY ON LICENSE OF [facility] Last Admin: 09/11/21 09:51 Dose: 40 mg Documented by: Gabapentin (Gabapentin 300 Mg Cap) 300 mg FT BID ON LICENSE OF [facility] Last Admin: 09/11/21 21:19 Dose: 300 mg Documented by: Glucagon (Glucagon 1 Mg/Vial) 1 mg IM 1X PRN; Protocol PRN Reason: HYPOGLYCEMIA Guaifenesin/Dextromethorphan (Guaifenesin/Dm 5 Ml Ucup) 15 ml PO QID PRN PRN Reason: COUGH Last Admin: 09/09/21 09:19 Dose: 15 ml Documented by: Hydralazine HCl (Hydralazine Hcl 20 Mg/Ml Vial) 10 mg IV Q6HP PRN PRN Reason: HIGHBP Last Admin: 09/06/21 17:27 Dose: 10 mg Documented by: Hydralazine HCl (Hydralazine Hcl 10 Mg Tablet) 10 mg PO BID ON LICENSE OF [facility] Last Admin: 09/11/21 21:19 Dose: 10 mg Documented by: Dextrose (Dextrose 10% Water Iv Soln.) 125 mls @ 0 mls/hr IV PRN PRN; Protocol PRN Reason: HYPOGLYCEMIA Last Admin: 09/08/21 11:08 Dose: 125 mls Documented by: Insulin Human Regular (Insulin -Regular Human 50 Unit/0.5 Ml Ml) 0 unit SQ ACHS ON LICENSE OF [facility]; Protocol Last Admin: 09/11/21 21:00 Dose: Not Given Documented by: Levalbuterol HCl (Levalbuterol 0.63 Mg/3 Ml Neb) 0.63 mg NEB [id number] PRN PRN Reason: SHORTNESS OF BREATH Last Admin: 09/08/21 19:36 Dose: 0.63 mg Documented by: Ondansetron HCl (Ondansetron 4 Mg (Odt) Tab) 4 mg FT Q8H PRN PRN Reason: NAUSEA / VOMITING Pantoprazole Sodium (Pantoprazole (Granules) 40 Mg/Blist Packet) [facility] Protocol Last Admin: 09/11/21 05:38 Dose: 40 mg Documented by: Sucralfate (Sucralfate 1gm/10ml Ucup) 0.1 gm FT 0800,1200,1700,2000 ON LICENSE OF [facility] Last Admin: 09/11/21 21:20 Dose: 0.1 gm Documented by: Tamsulosin HCl (Tamsulosin 0.4 Mg Sr Cap) 0.4 mg PO DAILY ON LICENSE OF [facility] Last Admin: 09/11/21 09:51 Dose: 0.4 mg Documented by: Trazodone HCl (Trazodone 150 Mg Tab) 150 mg PO BEDTIME ON LICENSE OF [facility] Last Admin: 09/11/21 21:19 Dose: 150 mg Documented by: Microbiology Results 08/24/21 10:24 Blood - Blood Aerobic Blood Culture - Final No growth in 5 days. 08/24/21 10:24 Blood - Blood Anaerobic Blood Culture - Final No growth in 5 days. 08/24/21 10:34 Blood - Blood Aerobic Blood Culture - Final No growth in 5 days. 08/24/21 10:34 Blood - Blood Anaerobic Blood Culture - Final No growth in 5 days. 08/24/21 12:01 Clean Catch Urine [place] Count - Final >100,000 CFU/ML. 08/24/21 12:01 Clean Catch Urine - Final Pseudomonas Aeruginosa Assessment/ Plan: Nephrology No dyspnea No chest pain Scrotal edema improved No acute events overnight Vitals, medications, blood work and imaging reviewed in the chart. General: In no apparent distress, Oriented x2, Cooperative HEENT: Atraumatic Neck: Supple Respiratory: Clear to auscultation bilaterally Cardiovascular: Regular rate/rhythm, Edema Gastrointestinal: Non-distended, No guarding Musculoskeletal: No clubbing, No contractures Integumentary: No rashes, No cyanosis Neurological: Normal speech External genitalia: Edema Blood work reviewed in the chart. Imagings Data: EXAM DESCRIPTION: US - Urinary Bladder - 08/25/2021 2:24 pm FINDINGS: Holcomb catheter is in place. Urinary bladder is fully contracted precluding any assessment of the bladder edwards. Volume was 3 milliliters. EXAM DESCRIPTION: RAD - Chest Pa And Lat (2 Views) - 08/25/2021 4:23 pm CLINICAL HISTORY: pleural effusion COMPARISON: Portable 08/24/2021, 06/28/2021 and 07/07/2021 TECHNIQUE: Frontal and lateral views of the chest were obtained. FINDINGS: Prominent baseline interstitial pattern noted. Sternotomy wires remain in place. No new tube or line. Bilateral costophrenic angle blunting is present right greater than left. Pleural effusions have been previously diag nosed and right-sided pleural fluid has decreased. Cardiomegaly has shown fractional improvement. Vasculature is slightly less pronounced. Trachea is midline. No pneumothorax. No acute bony finding noted. No aortic abnormality. IMPRESSION: Right-sided pleural fluid appears to be improved somewhat from prior day imaging. Cardiomegaly and vascular engorgement have improved but not resolved. 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 Marroquin
[2021-09-12 02:54] VITALS: O2SAT 97
[2021-09-12] MEDS: Pantoprazole (granules) 40 MG/BLIST PACKET FT SCH (05:58)
[2021-09-12] MEDS: INSULIN -REGULAR HUMAN 50 UNIT/0.5 ML ML SQ SCH ×4 (07:23→21:42)
[2021-09-12] MEDS: SUCRALFATE 1GM/10ML UCUP FT SCH ×5 (07:57→20:00)
[2021-09-12] MEDS: DOCUSATE NA 100 MG CAP PO SCH ×2 (07:59→21:38)
[2021-09-12] MEDS: CHLORTHALIDONE 25 MG TAB PO SCH (07:59)
[2021-09-12] MEDS: NEPRO 1,000 ML BOT FT SCH ×4 (07:59→21:00)
[2021-09-12] MEDS: GABAPENTIN 300 MG CAP FT SCH ×2 (07:59→21:40)
[2021-09-12] MEDS: AMLODIPINE 10 MG TAB FT SCH ×2 (08:00→21:39)
[2021-09-12] MEDS: TAMSULOSIN 0.4 MG SR CAP PO SCH (08:00)
[2021-09-12] MEDS: CLOPIDOGREL 75 MG TABLET FT SCH (08:00)
[2021-09-12] MEDS: ESCITALOPRAM 20 MG TAB FT SCH (08:00)
[2021-09-12] MEDS: HYDRALAZINE HCL 10 MG TABLET PO SCH ×2 (08:00→21:40)
--- NOTE | 2021-09-12 13:36 | P.DS ---
Admission Date: 08/24/21 Discharge Date: 09/13/21 Primary Care Provider: Jatinder Disposition: ROUTINE DISCHARGE Discharge Condition: GOOD Reason for Admission: chronic Hospital Course: Patient is a 66 year old male who was admitted with unexplained anemia and acute kidney injury with volume overload. He was diuresed during this stay. He also had a renal biopsy done due to suspicion of multiple myeloma. He will need to follow up with Hematology/Oncology as outpatient for bone marrow biopsy, and Nephrology for final pathology report. He stated an additional day for hyperkalemia. He responded to Kayexalate. He can be discharged to follow-up with Dr. Yadav who will be his PCP. Vital Signs/Physical Exam: Temp Pulse Resp BP Pulse Ox 98.4 F 61 17 150/66 H 92 09/12/21 08:00 09/12/21 08:00 09/12/21 08:00 09/12/21 08:00 09/12/21 08:00 General: Alert, In no apparent distress, Cooperative HEENT: Atraumatic, Normocephalic Neck: Supple Respiratory: Clear to auscultation bilaterally, Normal air movement Cardiovascular: Normal pulses, Regular rate/rhythm, Normal S1 S2 Gastrointestinal: Soft and benign, Non-distended Laboratory Data at Discharge: WBC 6.30 K/uL (4.3-10.9) 09/11/21 05:51 Hgb 8.1 g/dL (13.6-17.9) L 09/11/21 05:51 Hct 25.2 % (39.6-49.0) L 09/11/21 05:51 Plt Count 165 K/uL (152-406) D 09/11/21 05:51 PT 12.3 SECONDS (9.5-12.5) 09/04/21 05:11 INR 1.07 09/04/21 05:11 APTT 38.4 SECONDS (24.3-36.9) H 09/04/21 05:11 Sodium 142 mmol/L (136-145) 09/11/21 05:51 Potassium 5.3 mmol/L (3.5-5.1) H 09/11/21 05:51 BUN 126 mg/dL (7-18) H 09/11/21 05:51 Creatinine 2.49 mg/dL (0.55-1.3) H 09/11/21 05:51 Glucose 118 mg/dL (74-106) H 09/11/21 05:51 Uric Acid 7.9 mg/dL (3.5-7.2) H 09/09/21 03:30 Phosphorus 4.5 mg/dL (2.5-4.9) 09/07/21 05:43 Magnesium 3.2 mg/dL (1.8-2.4) H 09/10/21 04:16 Total Bilirubin 0.5 mg/dL (0.2-1.0) 09/07/21 05:43 AST 34 U/L (15-37) 09/07/21 05:43 ALT 72 U/L (12-78) 09/07/21 05:43 Alkaline Phosphatase 88 U/L (45-117) 09/07/21 05:43 Amylase 41 U/L (25-115) 08/24/21 11:00 Lipase 69 U/L (73-393) L 08/24/21 11:00 Home Medications: Aspirin [Adult Aspirin Regimen] 81 mg FT BEDTIME 06/04/20 Atorvastatin Calcium [Lipitor] 80 mg FT BEDTIME 06/04/20 Amlodipine [Norvasc*] 10 mg FT DAILY 07/16/20 Clopidogrel Bisulfate [Plavix*] 75 mg FT DAILY 07/16/20 Escitalopram [Lexapro*] 40 mg FT DAILY 07/16/20 Gabapentin 300 mg FT BID 07/16/20 Doxazosin [Cardura*] 2 mg FT BEDTIME 30 Days #30 tab 12/08/20 Ascorbic Acid [Vitamin C] 1,000 mg FT BID 12/16/20 Sucralfate [Carafate] 100 mg FT SEECOM 12/16/20 Trazodone HCl 150 tab FT BEDTIME 12/16/20 Insulin -Regular Human [Novolin -R*] 100 units SQ ACHS 04/02/21 Ferrous Sulfate [Ferrous Sulfate Elixir*] 220 mg FT BID 06/10/21 Nut.tx.impaired Renal Fxn,Soy [Nepro Carb Steady] 360 mg FT QID 06/10/21 Ondansetron [Ondansetron Odt] 4 mg FT Q8H PRN 06/10/21 Promethazine Tab [Phenergan*] 25 mg FT Q6H PRN 06/10/21 Tamsulosin [Flomax*] 0.4 mg PO DAILY 06/10/21 Benzonatate 1 cap PO TID 08/25/21 Chlorthalidone [Hygroton 25mg Tab*] 25 mg PO DAILY tab 09/12/21 Hydralazine [Apresoline*] 10 mg PO BID #30 tab 09/12/21 New Medications: Hydralazine [Apresoline*] 10 mg PO BID #30 tab Followup: Antonio Tobias MD [Primary Care Provider] -
[2021-09-12 14:57] LABS: Potassium 5.7 mmol/L (3.5-5.1)
[2021-09-12] MEDS ORDERED: SOD POLYSTYREN SUL 15 GM/60 ML UCUP PO ONE (15:05)
--- NOTE | 2021-09-12 16:15 | P.PN ---
Subjective Date of Service: 09/12/21 Primary Care Provider: Jatinder Chief Complaint: chronic Subjective: No new changes (Patient's discharge was postponed due to hyperkalemia) Physical Examination - Vital Signs Temperature: 97.8 F Blood Pressure: 129/60 Pulse: 49 Respirations: 18 Pulse Ox (%): 97 - Physical Exam General: In no apparent distress, Other (physically deconditioned) HEENT: Atraumatic, Normocephalic Respiratory: Clear to auscultation bilaterally, Normal air movement Cardiovascular: Regular rate/rhythm, Normal S1 S2 Gastrointestinal: Soft and benign, Non-distended Musculoskeletal: No clubbing, No swelling, No contractures Neurological: Normal speech, Normal affect - Studies Medications List Reviewed: Yes Assessment And Plan - Current Problems (Diagnosis) (1) Pleural effusion Current Visit: Yes Status: Acute (2) Acute blood loss anemia Current Visit: No Status: Acute (3) Acute renal failure Current Visit: No Status: Acute Qualifiers: Acute renal failure type: with acute renal cortical necrosis Qualified Code(s): N17.1 - Acute kidney failure with acute cortical necrosis (4) Acute urinary retention Current Visit: No Status: Acute (5) Anemia, chronic disease Current Visit: No Status: Acute (6) Anorexia Current Visit: No Status: Acute (7) BPH (benign prostatic hyperplasia) Current Visit: No Status: Acute (8) Cachexia Current Visit: No Status: Acute (9) Generalized weakness Current Visit: No Status: Acute Physician Review: Patient Assessed, Agree with Above Assessment and Plan Physician Review Additional Text: 09/12/21 16:17 Assessment Patient is a 66 year old male who was admitted with unexplained anemia and acute kidney injury with volume overload. He was diuresed during this stay. He also had a renal biopsy done due to suspicion of multiple myeloma. He will need to follow up with Hematology/Oncology as outpatient for bone marrow biopsy, and Nephrology for final pathology report. PLAN: Correct hyperkalemia. He was given a dose of kayexalate Hold diuresis due to OSCAR Repeat BMP tomorrow Patient's discharge poses a significant challenge. He may not follow up for the above outpatient clinic appointments. He is bed-bound and requires a stretcher for transportation. His insurance only approves transportation for ER visits, not clinic He can, however, follow up with Dr Aglieco via Home health but not with Hematology Oncology or IR for BM biopsy Continue glycemic control Hep-Lock IV GI and DVT prophylaxis
--- NOTE | 2021-09-12 19:30 | P.PN ---
Date of Service: 09/12/21 Vital Signs Temp Pulse Resp BP Pulse Ox 97.8 F 49 L 18 129/60 97 09/12/21 16:25 09/12/21 16:25 09/12/21 16:25 09/12/21 16:25 09/12/21 16:25 Medications Acetaminophen (Acetaminophen 500 Mg Tab) 500 mg PO Q6H PRN PRN Reason: Headache Last Admin: 09/06/21 12:08 Dose: 500 mg Documented by: Hydrocodone Bitart/Acetaminophen (Hydrocodone/Apap 5/325 Mg Tab) 1 tab PO Q8HP PRN PRN Reason: Pain scale 5-7 (Moderate) Last Admin: 09/03/21 17:03 Dose: 1 tab Documented by: Amlodipine Besylate (Amlodipine 10 Mg Tab) 10 mg FT BID [facility] Last Admin: 09/12/21 08:00 Dose: 10 mg Documented by: Ascorbic Acid (Ascorbic Acid 500 Mg Tablet) 1,000 mg FT BID [facility] Aspirin (Aspirin Ec 81 Mg Tab) 81 mg PO BEDTIME [facility] Last Admin: 09/03/21 20:17 Dose: 81 mg Documented by: Atorvastatin Calcium (Atorvastatin 80 Mg Tab) 80 mg FT BEDTIME [facility] Benzonatate (Benzonatate 100 Mg Cap) 100 mg PO TID [facility] Clonidine HCl (Clonidine 0.1 Mg/Patch) 0.1 mg TD EVERY 7TH DAY [facility] Last Admin: 09/10/21 09:01 Dose: 0.1 mg Documented by: Clopidogrel Bisulfate (Clopidogrel 75 Mg Tablet) 75 mg FT DAILY [facility] Last Admin: 09/12/21 08:00 Dose: 75 mg Documented by: Docusate Sodium (Docusate Na 100 Mg Cap) 100 mg PO BID [facility] Last Admin: 09/12/21 07:59 Dose: 100 mg Documented by: Doxazosin Mesylate (Doxazosin 2 Mg Tab) 2 mg FT BEDTIME [facility] Enteral Nutritional Formula (Nepro 1,000 Ml Bot) 237 ml FT QID [facility] Last Admin: 09/12/21 17:00 Dose: Not Given Documented by: Escitalopram Oxalate (Escitalopram 20 Mg Tab) 40 mg FT DAILY [facility] Last Admin: 09/12/21 08:00 Dose: 40 mg Documented by: Gabapentin (Gabapentin 300 Mg Cap) 300 mg FT BID [facility] Last Admin: 09/12/21 07:59 Dose: 300 mg Documented by: Glucagon (Glucagon 1 Mg/Vial) 1 mg IM 1X PRN; Protocol PRN Reason: HYPOGLYCEMIA Guaifenesin/Dextromethorphan (Guaifenesin/Dm 5 Ml Ucup) 15 ml PO QID PRN PRN Reason: COUGH Last Admin: 09/09/21 09:19 Dose: 15 ml Documented by: Hydralazine HCl (Hydralazine Hcl 20 Mg/Ml Vial) 10 mg IV Q6HP PRN PRN Reason: HIGHBP Last Admin: 09/06/21 17:27 Dose: 10 mg Documented by: Hydralazine HCl (Hydralazine Hcl 10 Mg Tablet) 10 mg PO BID [facility] Last Admin: 09/12/21 08:00 Dose: 10 mg Documented by: Dextrose (Dextrose 10% Water Iv Soln.) 125 mls @ 0 mls/hr IV PRN PRN; Protocol PRN Reason: HYPOGLYCEMIA Last Admin: 09/08/21 11:08 Dose: 125 mls Documented by: Insulin Human Regular (Insulin -Regular Human 50 Unit/0.5 Ml Ml) 0 unit SQ ACHS [facility]; Protocol Last Admin: 09/12/21 16:30 Dose: Not Given Documented by: Levalbuterol HCl (Levalbuterol 0.63 Mg/3 Ml Neb) 0.63 mg NEB [id number] PRN PRN Reason: SHORTNESS OF BREATH Last Admin: 09/08/21 19:36 Dose: 0.63 mg Documented by: Ondansetron HCl (Ondansetron 4 Mg (Odt) Tab) 4 mg FT Q8H PRN PRN Reason: NAUSEA / VOMITING Pantoprazole Sodium (Pantoprazole (Granules) 40 Mg/Blist Packet) 40 mg FT DAILYAC [facility]; Protocol Last Admin: 09/12/21 05:58 Dose: 40 mg Documented by: Sucralfate (Sucralfate 1gm/10ml Ucup) 0.1 gm FT 0800,1200,1700,2000 [facility] Last Admin: 09/12/21 17:11 Dose: 0.1 gm Documented by: Tamsulosin HCl (Tamsulosin 0.4 Mg Sr Cap) 0.4 mg PO DAILY [facility] Last Admin: 09/12/21 08:00 Dose: 0.4 mg Documented by: Trazodone HCl (Trazodone 150 Mg Tab) 150 mg PO BEDTIME [facility] Last Admin: 09/11/21 21:19 Dose: 150 mg Documented by: Microbiology Results 08/24/21 10:24 Blood - Blood Aerobic Blood Culture - Final No growth in 5 days. 08/24/21 10:24 Blood - Blood Anaerobic Blood Culture - Final No growth in 5 days. 08/24/21 10:34 Blood - Blood Aerobic Blood Culture - Final No growth in 5 days. 08/24/21 10:34 Blood - Blood Anaerobic Blood Culture - Final No growth in 5 days. 08/24/21 12:01 Clean Catch Urine [place] Count - Final >100,000 CFU/ML. 08/24/21 12:01 Clean Catch Urine - Final Pseudomonas Aeruginosa Assessment/ Plan: Nephrology No dyspnea No chest pain Anxious No acute events overnight Vitals, medications, blood work and imaging reviewed in the chart. General: In no apparent distress, Oriented x2, Cooperative HEENT: Atraumatic Neck: Supple Respiratory: Clear to auscultation bilaterally Cardiovascular: Regular rate/rhythm, Edema Gastrointestinal: Non-distended, No guarding Musculoskeletal: No clubbing, No contractures Integumentary: No rashes, No cyanosis Neurological: Normal speech Blood work reviewed in the chart. Imagings Data: EXAM DESCRIPTION: US - Urinary Bladder - 08/25/2021 2:24 pm FINDINGS: Holcomb catheter is in place. Urinary bladder is fully contracted precluding any assessment of the bladder edwards. Volume was 3 milliliters. EXAM DESCRIPTION: RAD - Chest Pa And Lat (2 Views) - 08/25/2021 4:23 pm CLINICAL HISTORY: pleural effusion COMPARISON: Portable 08/24/2021, 06/28/2021 and 07/07/2021 TECHNIQUE: Frontal and lateral views of the chest were obtained. FINDINGS: Prominent baseline interstitial pattern noted. Sternotomy wires remain in place. No new tube or line. Bilateral costophrenic angle blunting is present right greater than left. Pleural effusions have been previously diagnosed and right-sided pleural fluid has decreased. Cardiomegaly has shown fractional improvement. Vasculature is slightly less pronounced. Trachea is midline. No pneumothorax. No acute bony finding noted. No aortic abnormality. IMPRESSION: Right-sided pleural fluid appears to be improved somewhat from prior day imaging. Cardiomegaly and vascular engorgement have improved but not resolved. 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
[2021-09-12 19:58] LABS: Potassium 5.7 mmol/L (3.5-5.1)
[2021-09-12] MEDS: TRAZODONE 150 MG TAB PO SCH (21:00)
[2021-09-12] MEDS ORDERED: HOME MED 1 EA UNK (Ascorbic Acid [Vitamin C] 1,000 MG Tablet) FT SCH (21:00)
[2021-09-12] MEDS ORDERED: DOXAZOSIN 2 MG TAB FT SCH (21:00)
[2021-09-12] MEDS ORDERED: ATORVASTATIN 80 MG TAB FT SCH (21:00)
[2021-09-12] MEDS: ASCORBIC ACID 500 MG TABLET FT SCH (21:38)
[2021-09-12] MEDS: BENZONATATE 100 MG CAP PO SCH (21:40)
[2021-09-13 06:16] LABS: Potassium 5.2 mmol/L (3.5-5.1)
[2021-09-13] MEDS: Pantoprazole (granules) 40 MG/BLIST PACKET FT SCH (06:30)
[2021-09-13] MEDS ORDERED: SOD POLYSTYREN SUL 15 GM/60 ML UCUP PO ONE (07:01)
[2021-09-13 07:11] LABS: Urine Appearance TURBID (Clear); Urine Bilirubin NEGATIVE (Negative); Urine Blood 1+ (Negative); Urine Color YELLOW (Yellow); Urine Glucose NEGATIVE (Negative); Urine Protein 3+ (Negative); Urine Specific Gravity 1.015 (1.005-1.030); Urine Urobilinogen 0.2 mg/dL (0.2-1.0)
[2021-09-13 07:22] LABS: Urine Bacteria >50 /HPF (NONE SEEN)
[2021-09-13 07:23] LABS: Urine Yeast MANY (NONE SEEN); Urine Yeast with Hyphae PRESENT
[2021-09-13] MEDS: INSULIN -REGULAR HUMAN 50 UNIT/0.5 ML ML SQ SCH ×3 (07:30→16:28)
[2021-09-13] MEDS: SUCRALFATE 1GM/10ML UCUP FT SCH ×2 (08:00→12:00)
[2021-09-13] MEDS: LEVALBUTEROL 0.63 MG/3 ML NEB NEB PRN (08:05)
[2021-09-13] MEDS: GABAPENTIN 300 MG CAP FT SCH (08:58)
[2021-09-13] MEDS: DOCUSATE NA 100 MG CAP PO SCH (08:58)
[2021-09-13] MEDS: BENZONATATE 100 MG CAP PO SCH ×2 (08:58→14:00)
[2021-09-13] MEDS: CLOPIDOGREL 75 MG TABLET FT SCH (08:58)
[2021-09-13] MEDS: ASCORBIC ACID 500 MG TABLET FT SCH (08:58)
[2021-09-13] MEDS: ESCITALOPRAM 20 MG TAB FT SCH (08:58)
[2021-09-13] MEDS: TAMSULOSIN 0.4 MG SR CAP PO SCH (08:59)
[2021-09-13] MEDS: AMLODIPINE 10 MG TAB FT SCH (08:59)
[2021-09-13] MEDS: NEPRO 1,000 ML BOT FT SCH ×2 (08:59→12:14)
[2021-09-13] MEDS: HYDRALAZINE HCL 10 MG TABLET PO SCH (09:00)
[2021-09-13 17:35] VITALS: BP 124/58; TEMP 97.2
--- NOTE | 2021-09-13 20:22 | P.PN ---
Date of Service: 09/13/21 Vital Signs Temp Pulse Resp BP Pulse Ox 97.2 F 50 17 124/58 L 98 09/13/21 16:00 09/13/21 16:00 09/13/21 16:00 09/13/21 16:00 09/13/21 16:00 Microbiology Results 08/24/21 10:24 Blood - Blood Aerobic Blood Culture - Final No growth in 5 days. 08/24/21 10:24 Blood - Blood Anaerobic Blood Culture - Final No growth in 5 days. 08/24/21 10:34 Blood - Blood Aerobic Blood Culture - Final No growth in 5 days. 08/24/21 10:34 Blood - Blood Anaerobic Blood Culture - Final No growth in 5 days. 08/24/21 12:01 Clean Catch Urine [place] Count - Final >100,000 CFU/ML. 08/24/21 12:01 Clean Catch Urine - Final Pseudomonas Aeruginosa Assessment/ Plan: Nephrology No dyspnea No chest pain No acute events overnight Vitals, medications, blood work and imaging reviewed in the chart. General: In no apparent distress, Oriented x2, Cooperative HEENT: Atraumatic Neck: Supple Respiratory: Clear to auscultation bilaterally Cardiovascular: Regular rate/rhythm, Edema Gastrointestinal: Non-distended, No guarding Musculoskeletal: No clubbing, No contractures Integumentary: No rashes, No cyanosis Neurological: Normal speech Blood work reviewed in the chart. Imagings Data: EXAM DESCRIPTION: US - Urinary Bladder - 08/25/2021 2:24 pm FINDINGS: Holcomb catheter is in place. Urinary bladder is fully contracted precluding any assessment of the bladder edwards. Volume was 3 milliliters. EXAM DESCRIPTION: RAD - Chest Pa And Lat (2 Views) - 08/25/2021 4:23 pm CLINICAL HISTORY: pleural effusion COMPARISON: Portable 08/24/2021, 06/28/2021 and 07/07/2021 TECHNIQUE: Frontal and lateral views of the chest were obtained. FINDINGS: Prominent baseline interstitial pattern noted. Sternotomy wires remain in place. No new tube or line. Bilateral costophrenic angle blunting is present right greater than left. Pleural effusions have been previously diagnosed and right-sided pleural fluid has decreased. Cardiomegaly has shown fractional improvement. Vasculature is slightly less pronounced. Trachea is midline. No pneumothorax. No acute bony finding noted. No aortic abnormality. IMPRESSION: Right-sided pleural fluid appears to be improved somewhat from prior day imaging. Cardiomegaly and vascular engorgement have improved but not resolved. 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
== END 2021-09-13 18:31 | disposition home health service (06) | DRG 698 ==
LOC: ER 10:55 → SUPCPDRO 10:55 → ERHOLD 12:49 → 2ND 16:01
PROVIDERS: ADMIT Internal Medicine; ATTEND Internal Medicine
PROC: 30233N1 Transfusion of Nonautologous Red Blood Cells into Peripheral Vein, Percutaneous Approach (ICD-10-PCS; principal; 2021-08-24)
PROC: 0TB13ZX Excision of Left Kidney, Percutaneous Approach, Diagnostic (ICD-10-PCS; 2021-09-08)
DX: T83.511A Infection and inflammatory reaction due to indwelling urethral catheter, initial encounter (principal); D60.0 Chronic acquired pure red cell aplasia; N17.1 Acute kidney failure with acute cortical necrosis; I50.33 Acute on chronic diastolic (congestive) heart failure; N30.00 Acute cystitis without hematuria; I13.0 Hypertensive heart and chronic kidney disease with heart failure and stage 1 through stage 4 chronic kidney disease, or unspecified chronic kidney disease; E44.0 Moderate protein-calorie malnutrition; Z68.1 Body mass index [BMI] 19.9 or less, adult; R18.8 Other ascites; R64 Cachexia; I42.9 Cardiomyopathy, unspecified; N18.30 Chronic kidney disease, stage 3 unspecified; E11.22 Type 2 diabetes mellitus with diabetic chronic kidney disease; G20 Parkinson's disease; E83.51 Hypocalcemia; N50.89 Other specified disorders of the male genital organs; N40.1 Benign prostatic hyperplasia with lower urinary tract symptoms; F32.A Depression, unspecified; D63.8 Anemia in other chronic diseases classified elsewhere; N48.89 Other specified disorders of penis; E87.5 Hyperkalemia; J44.9 Chronic obstructive pulmonary disease, unspecified; I25.10 Atherosclerotic heart disease of native coronary artery without angina pectoris; D64.9 Anemia, unspecified; I25.2 Old myocardial infarction; R33.8 Other retention of urine; B96.5 Pseudomonas (aeruginosa) (mallei) (pseudomallei) as the cause of diseases classified elsewhere; Z88.8 Allergy status to other drugs, medicaments and biological substances; Z91.040 Latex allergy status; Z86.73 Personal history of transient ischemic attack (TIA), and cerebral infarction without residual deficits; Z95.1 Presence of aortocoronary bypass graft; Z87.891 Personal history of nicotine dependence; Z74.01 Bed confinement status; Z79.82 Long term (current) use of aspirin; Z79.02 Long term (current) use of antithrombotics/antiplatelets; Z79.4 Long term (current) use of insulin; Z79.899 Other long term (current) drug therapy; Z20.822 Contact with and (suspected) exposure to COVID-19; Z23 Encounter for immunization
CPT/HCPCS: 36415; 36430; 71045; 71046; 76857; 80048; 80053; 80076; 81001; 81003; 81015; 82150; 82274; 82306; 82550; 82570; 82607; 82668; 82728; 82746; 82784; 82947; 83010; 83036; 83516; 83520; 83540; 83605; 83615; 83690; 83735; 83880; 83930; 83935; 84100; 84132; 84156; 84165; 84300; 84443; 84466; 84484; 84550; 85014; 85018; 85025; 85044; 85610; 85652; 85730; 86038; 86140; 86225; 86334; 86335; 86430; 86618; 86704; 86706; 86803; 86850; 86880; 86900; 86901; 87040; 87077; 87086; 87088; 87186; 87340; 87389; 88300; 90471; 90732; 93005; 94640; 96365; 97110; 97124; 97140; 97161; 97530; 97535; 99285; J0360; J0610; J1200; J1940; J2185; J2250; J3010; J7030; J7040; J7050; P9016; P9047; Q2035; Q5105; U0003

== ENCOUNTER 2021-09-29 10:56 | Inpatient (IN) | payer OTHER ==
[2021-09-29] MEDS ORDERED: NA CHLORIDE 0.9% 1,000 ML ONE (11:34)
--- OUTSIDE RECORDS SUMMARY | 2021-09-29 11:39 | XMS REPORT | Continuity of Care Document ---
:1955 Author Organization [facility] t Address [address] [place] [address] Care Team Providers Name Role Phone Ra CRUM Primary Care Physician Unavailable [id number] Attending Clinician Unavailable GALE Attending Clinician Unavailable [...] Attending Clinician Milton Devlin MD Attending Clinician MITLON DEVLIN Attending Clinician Unavailable Landon Attending Clinician Mary Ellen Bah MD Attending Clinician Marlon JONES Attending Clinician Tay JONES Attending Clinician Balaji BELLHOP CAPTAIN, M Attending Clinician Pob, Lab Main Attending [...] JONES Attending Clinician Joshua JONES Attending Clinician [id number] Admitting Clinician Unavailable TEREZA Admitting Clinician Unavailable Laurie JONES, Scott Admitting Clinician Marlon JONES Admitting Clinician Arash Sunshine MD Admitting Clinician Arash SUNSHINE Admitting Clinician Unavailable ELMO Admitting Clinician Unavailable Hailey KWON Admitting Clinician Unavailable RK TROTTER Admitting Clinician Unavailable GRIS Admitting Clinician Unavailable Gris JONES Admitting Clinician Payers Payer Name Policy Type Policy Number Effective Date Expiration Date Mary Ellen BOYCE AE [id number] MEDICARE PART A [id number] 2020 \\T\\ B 00:00:00 MEDICAID SSI PENDING 2019 PENDING 00:00:00 Problems Condition Condition Condition Status Onset Resolution Last Treating Co mments Source Name Details Category Date Date Treatment Clinician Date E46 E46 Disease Active Univers Unspecifie Unspecifie 4-11 it y of d severe d severe 00:00: [place] protein-ca protein-ca 00 Me kevin maya [place] malnutriti malnutriti on on Upper GI Upper GI Disease Active Unive rs bleed bleed 4-10 ity of 00:00: [place] [facility] Hypoglycem Hypoglycem Disease Active 2020-0 U nivers ia ia 4-14 ity of 00:00: [place] [facility] CAD CAD Disease Active 2020- Univers (coronary (coronary 3-17 ity of artery artery 00:00: [place] disease) disease) 00 [facility] CKD stage CKD stage Disease Active 2019- Uni vers 2 due to 2 due to 3-17 ity of type 2 type 2 00:00: [place] diabetes diabetes 00 [facility] mellitus mellitus Branch OSCAR (acute OSCAR (acute Disease Active 2019- U nivers kidney kidney 3-17 ity of injury) injury) 00:00: [place] [facility] Fe Fe Disease Active 2020- Univers deficiency deficiency 3-17 it y of anemia anemia 00:00: [place] [facility] Hyperkalem Hyperkalem Disease Active 2020-0 U nivers ia ia 3-17 ity of 00:00: [place] [facility] SOB SOB Disease Active 2020-0 [...] ve urgency 2-05 it y of 00:00: [place] [facility] CHF CHF Disease Active 2020-0 Univers (congestiv (congestiv 2-04 it y of e heart e heart 00:00: [place] failure) failure) 00 [facility] CHF CHF Disease Active 2020-0 Univers exacerbati exacerbati 2-04 it y of on on 00:00: [place] [facility] Anemia, Anemia, Disease Active Overview: Univ ers unspecifie unspecifie 9-11 Formattin ity of d type d type 00:00: g of this 00 note Medical might be Branch different from the original. Added automatic ally from request for surgery [id number] Dysphagia, Dysphagia, Disease Active Overview : Univers unspecifie unspecifie 03-25 Formattin ity of d type d type 00:00: g of this 00 note Medical might be Branch different from the original. 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 00:[place]: [place] l l 00 Medical infarction infarction Br anch ) ) Foreign Foreign Disease Active Univers body in body in 2-20 ity of foot, left foot, left 00:[place] 00 [place] Left foot Left foot Disease Active Uni vers infection infection 2-19 ity of 00:00: Medical Branch Diabetic Diabetic Disease Active Unive rs foot foot 2-16 [place] of infection infection [place] Right foot Right foot Disease Active U nivers infection infection 2-16 ity of 00:00: Medical Branch Foot Foot Disease Active Univers abscess, abscess, 2-16 ity of right right 00:00: Medical Branch Infection Infection Disease Active Uni vers 2-16 ity of 00:00: Medical Branch History of History of Problem [...] Family history of Univers ity of [place] disease Physici ans Father Family history of [...] [place] pancreatic cancer Physici ans Brother Cancer [facility] Father Coronary Heart Disease Un iversity of [facility] Father Diabetes [facility] Father Hypertension University o f [facility] Mother Jose University of [place] disease [facility] Mother Cancer [facility] Mother Coronary Heart Disease Un iversity of [facility] Mother Diabetes [facility] Mother Heart [facility] Mother Hypertension University o f [facility] Sister Cancer [facility] Social History Social Habit Start Date Stop Date Quantity Comments Source Exposure to Not sure University of SARS-CoV-2 (event) [place] [facility] History SDOH University o f Alcohol Frequency [place] M [facility] History SDOH University o f Alcohol Std Drinks [place] [facility] History SDVA University o f Alcohol Binge [place] [facility] History of tobacco Cigarette Smoker University of use [facility] Alcohol intake 2020-05-03 2020-05-03 Current drinker Unive rsity of 00:00:00 00:00:00 of alcohol [place] [facility] (finding) Branch History SDOH 2019-09-30 2019-09-30 3 University o f Financial 00:00:00 00:00:00 [place] [facility] History SDOH Food 2019-09-30 2019-09-30 1 Univers ity of Worry 00:00:00 00:00:00 [place] [facility] History SDOH Food 2019-09-30 2019-09-30 1 Univers ity of Scarcity 00:00:00 00:00:00 [place] [facility] History SDOH 2019-09-30 2019-09-30 2 University o f Transport Med 00:00:00 00:00:00 [place] Medic al Branch History SDOH 2019-09-30 2019-09-30 2 University o f Transport Non-Med 00:00:00 00:00:00 [facility] Branch Education 2019-09-29 2019-09-29 13 University of 00:00:00 00:00:00 [facility] Tobacco use and 2019-09-29 2019-09-29 Never used Universit y of exposure 00:00:00 00:00:00 [facility] Cigarettes smoked 2019-09-29 2019-09-29 Univers ity of current (pack per 00:00:00 00:00:00 [facility]) - Reported Branch Cigarette 2019-09-29 2019-09-29 University of pack-years 00:00:00 00:00:00 [facility] Tobacco Comment 2018-04-03 2018-04-03 2-2.5 PPD X 40 Unive rsity of 00:00:00 00:00:00 years, down to [facility] 1PPD since Branch 02/2018 Alcohol Comment 2018-04-03 2018-04-03 quit5 years ago Univ ersity of 00:00:00 00:00:00 [facility] Sex [birth year] At [birth year] Universit y of 00:00:00 00:00:00 [facility] Smoking Status Start Date Stop Date Source Ex-smoker (finding) University o f [place] [facility] Current every day smoker 2019-09-28 00:00:00 Uni versity of [facility] Medications Ordered Filled Start Stop Current Ordering Indication Dosage Frequency Signature Comments Components Source Medication Medication Date Date Medication? Clinician (SIG) Name Name metoprolol Yes [id number] 25mg Take 25 mg Univers tartrate 75 4-29 through ity o f mg Tab 00:00: enteral [place] 00 tube 2 Medical (two) Branch times daily. metoprolol Yes [id number] 25mg Take 25 mg Univers tartrate 75 4-29 through ity o f mg Tab 00:00: enteral [place] 00 tube 2 Medical (two) Branch times daily. metoprolol Yes [id number] 100mg Take 1 Univers tartrate 4-29 tablet ity of 100 mg 00:00: through [place] tablet 00 enteral Medical tube 2 Branch (two) times daily. metoprolol Yes [id number] 25mg Take 25 mg Univers tartrate 75 4-29 through ity o f mg Tab 00:00: enteral [place] 00 tube 2 Medical (two) Branch times daily. metoprolol 2020-0 Yes [id number] 100mg Take 1 Univers tartrate 4-29 tablet ity of 100 mg 00:00: through [place] tablet 00 enteral Medical tube 2 Branch (two) times daily. metoprolol 2020-0 Yes [id number] 25mg Take 25 mg Univers tartrate 75 4-29 through ity o f mg Tab 00:00: enteral [place] 00 tube 2 Medical (two) Branch times daily. metoprolol 2020-0 Yes [id number] 100mg Take 1 Univers tartrate 4-29 tablet ity of 100 mg 00:00: through [place] tablet 00 enteral Medical tube 2 Branch (two) times daily. metoprolol 2020-0 Yes [id number] 25mg Take 25 mg Univers tartrate 75 4-29 through ity o f mg Tab 00:00: enteral [place] 00 tube 2 Medical (two) Branch times daily. metoprolol 2020-0 Yes [id number] 100mg Take 1 Univers tartrate 4-29 tablet ity of 100 mg 00:00: through [place] tablet 00 enteral Medical tube 2 Branch (two) times daily. metoprolol 2020-0 Yes [id number] 25mg Take 25 mg Univers tartrate 75 4-29 through ity o f mg Tab 00:00: enteral [place] 00 tube 2 Medical (two) Branch times daily. metoprolol 2020-0 Yes [id number] 100mg Take 1 Univers tartrate 4-29 tablet ity of 100 mg 00:00: through [place] tablet 00 enteral Medical tube 2 Branch (two) times daily. metoprolol 2020-0 Yes [id number] 25mg Take 25 mg Univers tartrate 75 4-29 through ity o f mg Tab 00:00: enteral [place] 00 tube 2 Medical (two) Branch times daily. metoprolol 2020-0 Yes [id number] 100mg Take 1 Univers tartrate 4-29 tablet ity of 100 mg 00:00: through [place] tablet 00 enteral Medical tube 2 Branch (two) times daily. metoprolol 2020-0 Yes [id number] 25mg Take 25 mg Univers tartrate 75 4-29 through ity o f mg Tab 00:00: enteral [place] 00 tube 2 Medical (two) Branch times daily. metoprolol 2020-0 Yes [id number] 100mg Take 1 Univers tartrate 4-29 tablet ity of 100 mg 00:00: through [place] tablet 00 enteral Medical tube 2 Branch (two) times daily. sennosides- Yes [id number] 1{tbl} Take 1 Univers docusate 4-28 tablet ity of sodium 00:00: through [place] 8.6-50 mg 00 enteral Medical per tablet tube Branch daily. lidocaine 5 Yes [id number] 1{patch Apply 1 Univers % (700 4-28 } Patch to ity of mg/patch) 00:00: area(s) [place] patch 00 daily. Medical Branch ferrous Yes [id number] 300mg Take 5 mL Univers sulfate 300 4-28 through ity o f mg (60 mg 00:00: enteral [place] iron)/5 mL 00 tube every Med ical solution other day. [facility] h sennosides- Yes [id number] 1{tbl} Take 1 Univers docusate 4-28 tablet ity of sodium 00:00: through [place] 8.6-50 mg 00 enteral Medical per tablet tube Branch daily. lidocaine 5 Yes [id number] 1{patch Apply 1 Univers % (700 4-28 } Patch to ity of mg/patch) 00:00: area(s) [place] patch 00 daily. Medical Branch esomeprazol Yes [id number] 40mg Take 40 mg Univers e (NEXIUM 4-28 1 by mouth ity of PACKET) 40 00:00: daily with [place] mg packet 00 breakfast. [facility] sennosides- Yes [id number] 1{tbl} Take 1 Univers docusate 4-28 tablet ity of sodium 00:00: through [place] 8.6-50 mg 00 enteral Medical per tablet tube Branch daily. lidocaine 5 Yes [id number] 1{patch Apply 1 Univers % (700 4-28 } Patch to ity of mg/patch) 00:00: area(s) [place] patch 00 daily. Medical Branch esomeprazol Yes [id number] 40mg Take 40 mg Univers e (NEXIUM 4-28 1 by mouth ity of PACKET) 40 00:00: daily with [place] mg packet 00 breakfast. [facility] sennosides- Yes [id number] 1{tbl} Take 1 Univers docusate 4-28 tablet ity of sodium 00:00: through [place] 8.6-50 mg 00 enteral Medical per tablet tube Branch daily. lidocaine 5 2020- Yes [id number] 1{patch Apply 1 Univers % (700 4-28 } Patch to ity of mg/patch) 00:00: area(s) [place] patch 00 daily. Medical Branch esomeprazol Yes [id number] 40mg Take 40 mg Univers e (NEXIUM 4-28 1 by mouth ity of PACKET) 40 00:00: daily with [place] mg packet 00 breakfast. [facility]- Yes [id number] 1{tbl} Take 1 Univers docusate 4-28 tablet ity of sodium 00:00: through [place] 8.6-50 mg 00 enteral Medical per tablet tube Branch daily. lidocaine 5 Yes [id number] 1{patch Apply 1 Univers % (700 4-28 } Patch to ity of mg/patch) 00:00: area(s) [place] patch 00 daily. Medical Branch esomeprazol Yes [id number] 40mg Take 40 mg Univers e (NEXIUM 4-28 1 by mouth ity of PACKET) 40 00:00: daily with [place] mg packet 00 breakfast. [facility]- Yes [id number] 1{tbl} Take 1 Univers docusate 4-28 tablet ity of sodium 00:00: through [place] 8.6-50 mg 00 enteral Medical per tablet tube Branch daily. lidocaine 5 Yes [id number] 1{patch Apply 1 Univers % (700 4-28 } Patch to ity of mg/patch) 00:00: area(s) [place] patch 00 daily. Medical Branch esomeprazol Yes [id number] 40mg Take 40 mg Univers e (NEXIUM 4-28 1 by mouth ity of PACKET) 40 00:00: daily with [place] mg packet 00 breakfast. [facility]- Yes [id number] 1{tbl} Take 1 Univers docusate 4-28 tablet ity of sodium 00:00: through [place] 8.6-50 mg 00 enteral Medical per tablet tube Branch daily. lidocaine 5 Yes [id number] 1{patch Apply 1 Univers % (700 4-28 } Patch to ity of mg/patch) 00:00: area(s) [place] patch 00 daily. Medical Branch esomeprazol Yes [id number] 40mg Take 40 mg Univers e (NEXIUM 4-28 1 by mouth ity of PACKET) 40 00:00: daily with [place] mg packet 00 breakfast. [facility]- Yes [id number] 1{tbl} Take 1 Univers docusate 4-28 tablet ity of sodium 00:00: through [place] 8.6-50 mg 00 enteral Medical per tablet tube Branch daily. lidocaine 5 Yes [id number] 1{patch Apply 1 Univers % (700 4-28 } Patch to ity of mg/patch) 00:00: area(s) [place] patch 00 daily. Medical Branch esomeprazol Yes [id number] 40mg Take 40 mg Univers e (NEXIUM 4-28 1 by mouth ity of PACKET) 40 00:00: daily with [place] mg packet 00 breakfast. [facility]- Yes [id number] 1{tbl} Take 1 Univers docusate 4-28 tablet ity of sodium 00:00: through [place] 8.6-50 mg 00 enteral Medical per tablet tube Branch daily. lidocaine 5 Yes [id number] 1{patch Apply 1 Univers % (700 4-28 } Patch to ity of mg/patch) 00:00: area(s) [place] patch 00 daily. Medical Branch esomeprazol Yes [id number] 40mg Take 40 mg Univers e (NEXIUM 4-28 1 by mouth ity of PACKET) 40 00:00: daily with [place] mg packet 00 breakfast. [facility]- Yes [id number] 1{tbl} Take 1 Univers docusate 4-28 tablet ity of sodium 00:00: through [place] 8.6-50 mg 00 enteral Medical per tablet tube Branch daily. lidocaine 5 2020- Yes [id number] 1{patch Apply 1 Univers % (700 4-28 } Patch to ity of mg/patch) 00:00: area(s) [place] patch 00 daily. Medical Branch esomeprazol Yes [id number] 40mg Take 40 mg Univers e (NEXIUM 4-28 1 by mouth ity of PACKET) 40 00:00: daily with [place] mg packet 00 breakfast. [facility] [id number] 1{tbl} Take 1 Univers docusate 4-28 tablet ity of sodium 00:00: through [place] 8.6-50 mg 00 enteral Medical per tablet tube Branch daily. lidocaine 5 2020- Yes [id number] 1{patch Apply 1 Univers % (700 4-28 } Patch to ity of mg/patch) 00:00: area(s) [place] patch 00 daily. Medical Branch esomeprazol Yes [id number] 40mg Take 40 mg Univers e (NEXIUM 4-28 1 by mouth ity of PACKET) 40 00:00: daily with [place] mg packet 00 breakfast. [facility] Yes [id number] 1{tbl} Take 1 Univers docusate 4-28 tablet ity of sodium 00:00: through [place] 8.6-50 mg 00 enteral Medical per tablet tube Branch daily. lidocaine 5 Yes [id number] 1{patch Apply 1 Univers % (700 4-28 } Patch to ity of mg/patch) 00:00: area(s) [place] patch 00 daily. Medical Branch esomeprazol Yes [id number] 40mg Take 40 mg Univers e (NEXIUM 4-28 1 by mouth ity of PACKET) 40 00:00: daily with [place] mg packet 00 breakfast. [facility] ferrous 2020-2020- No [id number] 220mg Take 5 mL Univers sulfate 220 11-09- 1 by mouth 3 i ty of mg (44 mg 00:00: 04:59 (three) [place] iron)/5 mL 00 :00 times Medical solution daily with Branc h meals for 30 days. gabapentin 2020- No [id number] 300mg Take 6 mL Univers 250 mg/5 mL 11-09- through ity of solution 00:00: 04:59 enteral [place] 00 :00 tube 3 Medical (three) Branch times daily for 30 days. ferrous 2020- No [id number] 220mg Take 5 mL Univers sulfate 220 11-09- 1 by mouth 3 i ty of mg (44 mg 00:00: 04:59 (three) [place] iron)/5 mL 00 :00 times Medical solution daily with Branc h meals for 30 days. gabapentin 2020- No [id number] 300mg Take 6 mL Univers 250 mg/5 mL 11-09- through ity of solution 00:00: 04:59 enteral [place] 00 :00 tube 3 Medical (three) Branch times daily for 30 days. ferrous 2020- No [id number] 220mg Take 5 mL Univers sulfate 220 11-09 1 by mouth 3 i ty of mg (44 mg 00:00: 04:59 (three) [place] iron)/5 mL 00 :00 times Medical solution daily with Branc h meals for 30 days. gabapentin 2020- No [id number] 300mg Take 6 mL Univers 250 mg/5 mL 11-09- through ity of solution 00:00: 04:59 enteral [place] 00 :00 tube 3 Medical (three) Branch times daily for 30 days. ferrous 2020- No [id number] 220mg Take 5 mL Univers sulfate 220 11-09- 1 by mouth 3 i ty of mg (44 mg 00:00: 04:59 (three) [place] iron)/5 mL 00 :00 times Medical solution daily with Branc h meals for 30 days. gabapentin 2020- No [id number] 300mg Take 6 mL Univers 250 mg/5 mL 11-09- through ity of solution 00:00: 04:59 enteral [place] 00 :00 tube 3 Medical (three) Branch times daily for 30 days. ferrous 2020- No [id number] 220mg Take 5 mL Univers sulfate 220 11-09- 1 by mouth 3 i ty of mg (44 mg 00:00: 04:59 (three) [place] iron)/5 mL 00 :00 times Medical solution daily with Branc h meals for 30 days. gabapentin 2020- No [id number] 300mg Take 6 mL Univers 250 mg/5 mL 11-09-29 through ity of solution 00:00: :59 enteral [place] 00 :00 tube 3 Medical (three) Branch times daily for 30 days. ferrous 2020- No [id number] 220mg Take 5 mL Univers sulfate 220 11-09- 1 by mouth 3 i ty of mg (44 mg 00:: :59 (three) [place] iron)/5 mL 00 :00 times Medical solution daily with Branc h meals for 30 days. gabapentin 2020- No [id number] 300mg Take 6 mL Univers 250 mg/5 mL 11-09- through ity of solution 00:00: :59 enteral [place] 00 :00 tube 3 Medical (three) Branch times daily for 30 days. ferrous 2020- No [id number] 220mg Take 5 mL Univers sulfate 220 11-09- 1 by mouth 3 i ty of mg (44 mg 00:: :59 (three) [place] iron)/5 mL 00 :00 times Medical solution daily with Branc h meals for 30 days. gabapentin 2020- No [id number] 300mg Take 6 mL Univers 250 mg/5 mL 11-09- through ity of solution 00:: :59 enteral [place] 00 :00 tube 3 Medical (three) Branch times daily for 30 days. ferrous 2020- No [id number] 220mg Take 5 mL Univers sulfate 220 11-09- 1 by mouth 3 i ty of mg (44 mg 00:: :59 (three) [place] iron)/5 mL 00 :00 times Medical solution daily with Branc h meals for 30 days. gabapentin 2020- No [id number] 300mg Take 6 mL Univers 250 mg/5 mL 11-09- through ity of solution 00:00: :59 enteral [place] 00 :00 tube 3 Medical (three) Branch times daily for 30 days. ferrous 2020- No [id number] 300mg Take 5 mL Univers sulfate 300 11-09- through ity of mg (60 mg 00:00: 00:00 [place] iron)/5 mL 00 :00 tube every Med ical solution other day. [facility] escitalopra 2020- No 20mg Take 20 mg Univers m oxalate 11-08 by mouth ity o f 20 mg 19:31: 00:00 daily. [place] tablet 00 :00 [facility] traZODone 2020- No 100mg Take 100 Un michael 100 mg 11-08- mg by ity of tablet 19:31: 00:00 mouth at [place] 00 :00 bedtime. [facility] escitalopra 2020- No 20mg Take 20 mg Univers m oxalate 11-08 by mouth ity o f 20 mg 19:31: 00:00 daily. [place] tablet 00 :00 [facility] traZODone 2020- No 100mg Take 100 Un michael 100 mg 11-08- mg by ity of tablet 19:31: 00:00 mouth at [place] 00 :00 bedtime. [facility] cranberry 2020- No 1{tbl} Take 1 Uni vers fruit 11-08 tablet by ity of (CRANBERRY) 19:30: 00:00 [place] 450 mg Tab 59 :00 daily. [facility] cranberry 2020- No 1{tbl} Take 1 Uni vers fruit 11-08- tablet by ity of (CRANBERRY) 19:30: 00:00 mouth [place] 450 mg Tab 59 :00 daily. [facility] sodium Yes 4mL 4 mL, Univers chloride 7% 11-08 Inhalation it y of (HYPER-JOSE) 14:45: , BID, [place] nebulizer 00 First dose Medi lizzy solution 4 on Sat [place] mL 11/08/20 at 0945, Until Discontinu ed, Routine lidocaine Yes 1{patch 1 Patch, U nivers (LIDODERM) 11-08 } Topical, ity o f 5 % (700 14:00: Administer You as mg/patch) 00 over 12 Medical patch 1 Hours, Branch Patch DAILY, First dose on Sat11/08/20 at 0900, Until Discontinu ed, Routine acetaminoph Yes [id number] 325mg Take 10.25 Univers en 160 mg/5 11-08 mL through it y of mL liquid 00:00: enteral [place] 00 tube every Medical 6 (six) Branch hours as needed (pain, fever). metoprolol 2020-0 Yes [id number] 100mg Take 10 mL Univers 10 mg/mL 4-27 through ity of 00:00: enteral [place] 00 tube every Medical 12 Branch (twelve) hours. pantoprazol 2020-0 Yes [id number] 40mg Take 2 Univers e 20 mg EC 4-27 tablets by ity of tablet 00:00: mouth [place] 00 daily. Medical Branch pantoprazol 2020-0 Yes [id number] 40mg Take 20 mL Univers e 4-27 through ity of (PROTONIX) 00:00: [place] 2 mg/mL 00 tube Medical oral daily. Branch suspension amLODIPine 2020-0 Yes [id number] 5mg Take 1 Univers 5 mg tablet 4-27 tablet ity of 00:00: through [place] 00 enteral Medical tube Branch daily. calcitrioL 0 Yes [id number] .5ug Take 1 Univers 0.5 mcg 4-27 capsule by ity of capsule 00:00: mouth [place] 00 daily. Medical Branch clopidogreL 2020-0 Yes [id number] 75mg Take 1 Univers 75 mg 4-27 tablet ity of tablet 00:00: through [place] 00 enteral Medical tube Branch daily. escitalopra 2020-0 Yes [id number] 20mg Take 1 Univers m oxalate 4-27 tablet ity of 20 mg 00:00: through [place] tablet 00 enteral Medical tube Branch daily. furosemide 2020-0 Yes [id number] 40mg Take 1 Univers 40 mg 4-27 tablet by ity of tablet 00:00: mouth [place] 00 every Medical morning Branch and evening. metFORMIN 2020-0 Yes [id number] 500mg Take 1 Univers 500 mg 4-27 tablet ity of tablet 00:00: through [place] 00 enteral Medical tube 2 Branch (two) times daily with meals. ondansetron 2020-0 Yes [id number] 4mg Take 1 Univers (ZOFRAN 4-27 tablet by ity of ODT) 4 mg 00:00: mouth [place] disintegrat 00 every 8 Medic al ing tablet (eight) Branch hours as needed for Nausea and Vomiting (N/V). traZODone 2020-0 Yes [id number] 100mg Take 1 Univers 100 mg 4-27 tablet ity of tablet 00:00: through enteral Medical tube at Branch bedtime. aspirin 81 2020-0 Yes [id number] 81mg Take 1 Univers mg chewable 4-27 tablet ity of tablet 00:00: through enteral Medical tube Branch daily. atorvastati 2020-0 Yes [id number] 80mg Take 1 Univers n 80 mg 4-27 tablet ity of tablet 00:00: through enteral Medical tube at Branch bedtime. gabapentin 2020-0 Yes [id number] 300mg Take 6 mL Univers 250 mg/5 mL 4-27 through ity o f solution 00:00: enteral 00 tube 3 Medical (three) Branch times daily. ipratropium 2020-0 Yes [id number] 3mL Inhale 3 Univers -albuteroL 4-27 mL every 6 ity of 0.5 mg-3 00:00: (six) [place] mg(2.5 mg 00 hours as Medica l base)/3 mL needed for [facility] nebulizer Wheezing solution or Shortness of Breath. acetaminoph 0 Yes [id number] 325mg Take 10.25 Univers en 160 mg/5 4-27 mL through it y of mL liquid 00:00: enteral 00 tube every Medical 6 (six) Branch hours as needed (pain, fever). metoprolol 2020-0 Yes [id number] 100mg Take 10 mL Univers 10 mg/mL 4-27 through ity of 00:00: enteral 00 tube every Medical 12 Branch (twelve) hours. pantoprazol 2020-0 Yes [id number] 40mg Take 2 Univers e 20 mg EC 4-27 tablets by ity of tablet 00:00: mouth daily. Medical Branch amLODIPine 2020-0 Yes [id number] 5mg Take 1 Univers 5 mg tablet 4-27 tablet ity of 00:00: through enteral Medical tube Branch daily. calcitrioL 2020-0 Yes [id number] .5ug Take 1 Univers 0.5 mcg 4-27 capsule by ity of capsule 00:00: mouth daily. Medical Branch clopidogreL 2020-0 Yes [id number] 75mg Take 1 Univers 75 mg 4-27 tablet ity of tablet 00:00: through [facility] tube Branch daily. escitalopra 2020-0 Yes [id number] 20mg Take 1 [facility] m oxalate 4-27 tablet ity of 20 mg 00:00: through [place] tablet 00 enteral Medical tube Branch daily. furosemide 2020-0 Yes [id number] 40mg Take 1 [facility] 40 mg 4-27 tablet by ity of tablet 00:00: mouth [place] 00 every Medical morning Branch and evening. metFORMIN 2020-0 Yes [id number] 500mg Take 1 [facility] 500 mg 4-27 tablet ity of tablet 00:00: through [place] 00 enteral Medical tube 2 Branch (two) times daily with meals. ondansetron 2020-0 Yes [id number] 4mg Take 1 [facility] (ZOFRAN 4-27 tablet by ity of ODT) 4 mg 00:00: mouth [place] disintegrat 00 every 8 Medic al ing tablet (eight) Branch hours as needed for Nausea and Vomiting (N/V). traZODone 0 Yes [id number] 100mg Take 1 [facility] 100 mg 4-27 tablet ity of tablet 00:00: through [place] 00 enteral Medical tube at Branch bedtime. aspirin 81 2020-0 Yes [id number] 81mg Take 1 [facility] mg chewable 4-27 tablet ity of tablet 00:00: through [place] 00 enteral Medical tube Branch daily. atorvastati 0 Yes [id number] 80mg Take 1 [facility] n 80 mg 4-27 tablet ity of tablet 00:00: through [place] 00 enteral Medical tube at Branch bedtime. ipratropium 2020-0 Yes [id number] 3mL Inhale 3 [facility] -albuteroL 4-27 mL every 6 ity of 0.5 mg-3 00:00: (six) [place] mg(2.5 mg 00 hours as Medica l base)/3 mL needed for [facility] nebulizer Wheezing solution or Shortness of Breath. acetaminoph 2020-0 Yes [id number] 325mg Take 10.25 [facility] en 160 mg/5 4-27 mL through it y of mL liquid 00:00: enteral [place] 00 tube every Medical 6 (six) Branch hours as needed (pain, fever). metoprolol 2020-0 Yes [id number] 100mg Take 10 mL [facility] 10 mg/mL 4-27 through ity of 00:00: enteral [place] 00 tube every Medical 12 Branch (twelve) hours. pantoprazol 2020-0 Yes [id number] 40mg Take 2 [facility] e 20 mg EC 4-27 tablets by ity of tablet 00:00: mouth [place] 00 daily. Medical Branch amLODIPine 0 Yes [id number] 5mg Take 1 [facility] 5 mg tablet 4-27 tablet ity of 00:00: through [place] enteral Medical tube Branch daily. calcitrioL Yes [id number] .5ug Take 1 [facility] 0.5 mcg 4-27 capsule by ity of capsule 00:00: mouth [place] 00 daily. Medical Branch clopidogreL 0 Yes [id number] 75mg Take 1 [facility] 75 mg 4-27 tablet ity of tablet 00:00: through [place] enteral Medical tube Branch daily. escitalopra Yes [id number] 20mg Take 1 [facility] m oxalate 4-27 tablet ity of 20 mg 00:00: through [facility] 00 enteral Medical tube Branch daily. furosemide Yes [id number] 40mg Take 1 [facility] 40 mg 4-27 tablet by ity of tablet 00:00: mouth [place] 00 every Medical morning Branch and evening. metFORMIN Yes [id number] 500mg Take 1 [facility] 500 mg 4-27 tablet ity of tablet 00:00: through [place] enteral Medical tube 2 Branch (two) times daily with meals. ondansetron Yes [id number] 4mg Take 1 [facility] (ZOFRAN 4-27 tablet by ity of ODT) 4 mg 00:00: mouth [place] disintegrat 00 every 8 Medic al ing tablet (eight) Branch hours as needed for Nausea and Vomiting (N/V). traZODone 0 Yes [id number] 100mg Take 1 [facility] 100 mg 4-27 tablet ity of tablet 00:00: through [place] enteral Medical tube at Branch bedtime. aspirin 81 2020-0 Yes [id number] 81mg Take 1 [facility] mg chewable 4-27 tablet ity of tablet 00:00: through [place] 00 enteral Medical tube Branch daily. atorvastati 0 Yes [id number] 80mg Take 1 [facility] n 80 mg 4-27 tablet ity of tablet 00:00: through [place] enteral Medical tube at Branch bedtime. ipratropium 0 Yes [id number] 3mL Inhale 3 [facility] -albuteroL 4-27 mL every 6 ity of 0.5 mg-3 00:00: (six) [place] mg(2.5 mg 00 hours as Medica l base)/3 mL needed for [facility] nebulizer Wheezing solution or Shortness of Breath. acetaminoph Yes [id number] 325mg Take 10.25 [facility] en 160 mg/5 4-27 mL through it y of mL liquid 00:00: enteral [place] 00 tube every Medical 6 (six) Branch hours as needed (pain, fever). pantoprazol Yes [id number] 40mg Take 2 [facility] e 20 mg EC 4-27 tablets by ity of tablet 00:00: mouth 00 daily. Medical Branch amLODIPine Yes [id number] 5mg Take 1 [facility] 5 mg tablet 4-27 tablet ity of 00:00: through [place] enteral Medical tube Branch daily. calcitrioL Yes [id number] .5ug Take 1 [facility] 0.5 mcg 4-27 capsule by ity of capsule 00:00: mouth [place] 00 daily. Medical Branch clopidogreL Yes [id number] 75mg Take 1 [facility] 75 mg 4-27 tablet ity of tablet 00:00: through [place] 00 enteral Medical tube Branch daily. escitalopra Yes [id number] 20mg Take 1 [facility] m oxalate 4-27 tablet ity of 20 mg 00:00: through [facility] 00 enteral Medical tube Branch daily. furosemide Yes [id number] 40mg Take 1 [facility] 40 mg 4-27 tablet by ity of tablet 00:00: mouth [place] 00 every Medical morning Branch and evening. metFORMIN Yes [id number] 500mg Take 1 [facility] 500 mg 4-27 tablet ity of tablet 00:00: through [place] 00 enteral Medical tube 2 Branch (two) times daily with meals. ondansetron Yes [id number] 4mg Take 1 [facility] (ZOFRAN 4-27 tablet by ity of ODT) 4 mg 00:00: mouth [place] disintegrat 00 every 8 Medic al ing tablet (eight) Branch hours as needed for Nausea and Vomiting (N/V). traZODone Yes [id number] 100mg Take 1 [facility] 100 mg 4-27 tablet ity of tablet 00:00: through [place] 00 enteral Medical tube at Branch bedtime. aspirin 81 2020-0 Yes [id number] 81mg Take 1 [facility] mg chewable 4-27 tablet ity of tablet 00:00: through [place] enteral Medical tube Branch daily. atorvastati 2020-0 Yes [id number] 80mg Take 1 [facility] n 80 mg 4-27 tablet ity of tablet 00:00: through [place] enteral Medical tube at Branch bedtime. ipratropium 2020-0 Yes [id number] 3mL Inhale 3 [facility] -albuteroL 4-27 mL every 6 ity of 0.5 mg-3 00:00: (six) [place] mg(2.5 mg 00 hours as Medica l base)/3 mL needed for [facility] nebulizer Wheezing solution or Shortness of Breath. acetaminoph 2020-0 Yes [id number] 325mg Take 10.25 [facility] en 160 mg/5 4-27 mL through it y of mL liquid 00:00: enteral [place] 00 tube every Medical 6 (six) Branch hours as needed (pain, fever). pantoprazol 2020-0 Yes [id number] 40mg Take 2 [facility] e 20 mg EC 4-27 tablets by ity of tablet 00:00: mouth daily. Medical Branch amLODIPine 2020-0 Yes [id number] 5mg Take 1 [facility] 5 mg tablet 4-27 tablet ity of 00:00: through [place] enteral Medical tube Branch daily. calcitrioL 2020-0 Yes [id number] .5ug Take 1 [facility] 0.5 mcg 4-27 capsule by ity of capsule 00:00: mouth [place] daily. Medical Branch clopidogreL 2020-0 Yes [id number] 75mg Take 1 [facility] 75 mg 4-27 tablet ity of tablet 00:00: through [place] enteral Medical tube Branch daily. escitalopra 2020-0 Yes [id number] 20mg Take 1 [facility] m oxalate 4-27 tablet ity of 20 mg 00:00: through [facility] 00 enteral Medical tube Branch daily. furosemide 2020-0 Yes [id number] 40mg Take 1 [facility] 40 mg 4-27 tablet by ity of tablet 00:00: mouth [place] 00 every Medical morning Branch and evening. metFORMIN 2020-0 Yes [id number] 500mg Take 1 [facility] 500 mg 4-27 tablet ity of tablet 00:00: through enteral Medical tube 2 Branch (two) times daily with meals. ondansetron 0 Yes [id number] 4mg Take 1 [facility] (ZOFRAN 4-27 tablet by ity of ODT) 4 mg 00:00: mouth [place] disintegrat 00 every 8 Medic al ing tablet (eight) Branch hours as needed for Nausea and Vomiting (N/V). traZODone 0 Yes [id number] 100mg Take 1 [facility] 100 mg 4-27 tablet ity of tablet 00:00: through enteral Medical tube at Branch bedtime. aspirin 81 2020-0 Yes [id number] 81mg Take 1 [facility] mg chewable 4-27 tablet ity of tablet 00:00: through enteral Medical tube Branch daily. atorvastati 0 Yes [id number] 80mg Take 1 [facility] n 80 mg 4-27 tablet ity of tablet 00:00: through enteral Medical tube at Branch bedtime. ipratropium 0 Yes [id number] 3mL Inhale 3 [facility] -albuteroL 4-27 mL every 6 ity of 0.5 mg-3 00:00: (six) [place] mg(2.5 mg 00 hours as Medica l base)/3 mL needed for [facility] nebulizer Wheezing solution or Shortness of Breath. acetaminoph 0 Yes [id number] 325mg Take 10.25 [facility] en 160 mg/5 4-27 mL through it y of mL liquid 00:00: enteral [place] 00 tube every Medical 6 (six) Branch hours as needed (pain, fever). pantoprazol 0 Yes [id number] 40mg Take 2 [facility] e 20 mg EC 4-27 tablets by ity of tablet 00:00: mouth 00 daily. Medical Branch amLODIPine 2020-0 Yes [id number] 5mg Take 1 [facility] 5 mg tablet 4-27 tablet ity of 00:00: through enteral Medical tube Branch daily. calcitrioL 2020-0 Yes [id number] .5ug Take 1 [facility] 0.5 mcg 4-27 capsule by ity of capsule 00:00: mouth 00 daily. Medical Branch clopidogreL 2020-0 Yes [id number] 75mg Take 1 [facility] 75 mg 4-27 tablet ity of tablet 00:00: through enteral Medical tube Branch daily. escitalopra 0 Yes [id number] 20mg Take 1 [facility] m oxalate 4-27 tablet ity of 20 mg 00:00: through [place] tablet 00 enteral Medical tube Branch daily. furosemide 0 Yes [id number] 40mg Take 1 [facility] 40 mg 4-27 tablet by ity of tablet 00:00: mouth [place] 00 every Medical morning Branch and evening. metFORMIN 2020-0 Yes [id number] 500mg Take 1 [facility] 500 mg 4-27 tablet ity of tablet 00:00: through [place] 00 enteral Medical tube 2 Branch (two) times daily with meals. ondansetron 0 Yes [id number] 4mg Take 1 [facility] (ZOFRAN 4-27 tablet by ity of ODT) 4 mg 00:00: mouth [place] disintegrat 00 every 8 Medic al ing tablet (eight) Branch hours as needed for Nausea and Vomiting (N/V). traZODone 0 Yes [id number] 100mg Take 1 [facility] 100 mg 4-27 tablet ity of tablet 00:00: through 00 enteral Medical tube at Branch bedtime. aspirin 81 0 Yes [id number] 81mg Take 1 [facility] mg chewable 4-27 tablet ity of tablet 00:00: through [place] 00 enteral Medical tube Branch daily. atorvastati 0 Yes [id number] 80mg Take 1 [facility] n 80 mg 4-27 tablet ity of tablet 00:00: through 00 enteral Medical tube at Branch bedtime. ipratropium 0 Yes [id number] 3mL Inhale 3 [facility] -albuteroL 4-27 mL every 6 ity of 0.5 mg-3 00:00: (six) [place] mg(2.5 mg 00 hours as Medica l base)/3 mL needed for [facility] nebulizer Wheezing solution or Shortness of Breath. acetaminoph 0 Yes [id number] 325mg Take 10.25 [facility] en 160 mg/5 4-27 mL through it y of mL liquid 00:00: enteral [place] 00 tube every Medical 6 (six) Branch hours as needed (pain, fever). pantoprazol 0 Yes [id number] 40mg Take 2 [facility] e 20 mg EC 4-27 tablets by ity of tablet 00:00: mouth [place] 00 daily. Medical Branch amLODIPine 0 Yes [id number] 5mg Take 1 [facility] 5 mg tablet 4-27 tablet ity of 00:00: through [place] enteral Medical tube Branch daily. calcitrioL Yes [id number] .5ug Take 1 [facility] 0.5 mcg 4-27 capsule by ity of capsule 00:00: mouth [place] 00 daily. Medical Branch clopidogreL 0 Yes [id number] 75mg Take 1 [facility] 75 mg 4-27 tablet ity of tablet 00:00: through [place] 00 enteral Medical tube Branch daily. escitalopra Yes [id number] 20mg Take 1 [facility] m oxalate 4-27 tablet ity of 20 mg 00:00: through [facility] 00 enteral Medical tube Branch daily. furosemide Yes [id number] 40mg Take 1 [facility] 40 mg 4-27 tablet by ity of tablet 00:00: mouth [place] 00 every Medical morning Branch and evening. metFORMIN Yes [id number] 500mg Take 1 [facility] 500 mg 4-27 tablet ity of tablet 00:00: through [place] 00 enteral Medical tube 2 Branch (two) times daily with meals. ondansetron Yes [id number] 4mg Take 1 [facility] (ZOFRAN 4-27 tablet by ity of ODT) 4 mg 00:00: mouth [place] disintegrat 00 every 8 Medic al ing tablet (eight) Branch hours as needed for Nausea and Vomiting (N/V). traZODone 0 Yes [id number] 100mg Take 1 [facility] 100 mg 4-27 tablet ity of tablet 00:00: through [place] 00 enteral Medical tube at Branch bedtime. aspirin 81 0 Yes [id number] 81mg Take 1 [facility] mg chewable 4-27 tablet ity of tablet 00:00: through [place] 00 enteral Medical tube Branch daily. atorvastati Yes [id number] 80mg Take 1 [facility] n 80 mg 4-27 tablet ity of tablet 00:00: through [place] 00 enteral Medical tube at Branch bedtime. ipratropium 0 Yes [id number] 3mL Inhale 3 [facility] -albuteroL 4-27 mL every 6 ity of 0.5 mg-3 00:00: (six) [place] mg(2.5 mg 00 hours as Medica l base)/3 mL needed for [facility] nebulizer Wheezing solution or Shortness of Breath. acetaminoph 0 Yes [id number] 325mg Take 10.25 [facility] en 160 mg/5 4-27 mL through it y of mL liquid 00:00: enteral [place] 00 tube every Medical 6 (six) Branch hours as needed (pain, fever). pantoprazol 0 Yes [id number] 40mg Take 2 [facility] e 20 mg EC 4-27 tablets by ity of tablet 00:00: mouth [place] 00 daily. Medical Branch amLODIPine 2020-0 Yes [id number] 5mg Take 1 [facility] 5 mg tablet 4-27 tablet ity of 00:00: through [place] 00 enteral Medical tube Branch daily. calcitrioL 2020-0 Yes [id number] .5ug Take 1 [facility] 0.5 mcg 4-27 capsule by ity of capsule 00:00: mouth [place] 00 daily. Medical Branch clopidogreL 0 Yes [id number] 75mg Take 1 [facility] 75 mg 4-27 tablet ity of tablet 00:00: through [place] 00 enteral Medical tube Branch daily. escitalopra 0 Yes [id number] 20mg Take 1 [facility] m oxalate 4-27 tablet ity of 20 mg 00:00: through [facility] 00 enteral Medical tube Branch daily. furosemide 2020-0 Yes [id number] 40mg Take 1 [facility] 40 mg 4-27 tablet by ity of tablet 00:00: mouth [place] 00 every Medical morning Branch and evening. metFORMIN 0 Yes [id number] 500mg Take 1 [facility] 500 mg 4-27 tablet ity of tablet 00:00: through [place] 00 enteral Medical tube 2 Branch (two) times daily with meals. ondansetron 0 Yes [id number] 4mg Take 1 [facility] (ZOFRAN 4-27 tablet by ity of ODT) 4 mg 00:00: mouth [place] disintegrat 00 every 8 Medic al ing tablet (eight) Branch hours as needed for Nausea and Vomiting (N/V). traZODone 2020-0 Yes [id number] 100mg Take 1 [facility] 100 mg 4-27 tablet ity of tablet 00:00: through [place] 00 enteral Medical tube at Branch bedtime. aspirin 81 2020-0 Yes [id number] 81mg Take 1 [facility] mg chewable 4-27 tablet ity of tablet 00:00: through [place] enteral Medical tube Branch daily. atorvastati 0 Yes [id number] 80mg Take 1 [facility] n 80 mg 4-27 tablet ity of tablet 00:00: through [place] enteral Medical tube at Branch bedtime. ipratropium 2020-0 Yes [id number] 3mL Inhale 3 [facility] -albuteroL 4-27 mL every 6 ity of 0.5 mg-3 00:00: (six) [place] mg(2.5 mg 00 hours as Medica l base)/3 mL needed for [facility] nebulizer Wheezing solution or Shortness of Breath. acetaminoph 2020-0 Yes [id number] 325mg Take 10.25 [facility] en 160 mg/5 4-27 mL through it y of mL liquid 00:00: enteral [place] 00 tube every Medical 6 (six) Branch hours as needed (pain, fever). pantoprazol 0 Yes [id number] 40mg Take 2 [facility] e 20 mg EC 4-27 tablets by ity of tablet 00:00: mouth [place] daily. Medical Branch amLODIPine 2020-0 Yes [id number] 5mg Take 1 [facility] 5 mg tablet 4-27 tablet ity of 00:00: through [place] enteral Medical tube Branch daily. calcitrioL 2020-0 Yes [id number] .5ug Take 1 [facility] 0.5 mcg 4-27 capsule by ity of capsule 00:00: mouth [place] daily. Medical Branch clopidogreL 0 Yes [id number] 75mg Take 1 [facility] 75 mg 4-27 tablet ity of tablet 00:00: through [place] enteral Medical tube Branch daily. escitalopra 2020-0 Yes [id number] 20mg Take 1 [facility] m oxalate 4-27 tablet ity of 20 mg 00:00: through [place] tablet 00 enteral Medical tube Branch daily. furosemide 2020-0 Yes [id number] 40mg Take 1 [facility] 40 mg 4-27 tablet by ity of tablet 00:00: mouth [place] 00 every Medical morning Branch and evening. metFORMIN 2020-0 Yes [id number] 500mg Take 1 [facility] 500 mg 4-27 tablet ity of tablet 00:00: through [place] [address] enteral Medical tube 2 Branch (two) times daily with meals. ondansetron 2020-0 Yes [id number] 4mg Take 1 [facility] (ZOFRAN 4-27 tablet by ity of ODT) 4 mg 00:00: mouth [place] disintegrat 00 every 8 Medic al ing tablet (eight) Branch hours as needed for Nausea and Vomiting (N/V). traZODone 0 Yes [id number] 100mg Take 1 [facility] 100 mg 4-27 tablet ity of tablet 00:00: through enteral Medical tube at Branch bedtime. aspirin 81 0 Yes [id number] 81mg Take 1 [facility] mg chewable 4-27 tablet ity of tablet 00:00: through enteral Medical tube Branch daily. atorvastati 0 Yes [id number] 80mg Take 1 [facility] n 80 mg 4-27 tablet ity of tablet 00:00: through enteral Medical tube at Branch bedtime. ipratropium 0 Yes [id number] 3mL Inhale 3 [facility] -albuteroL 4-27 mL every 6 ity of 0.5 mg-3 00:00: (six) [place] mg(2.5 mg 00 hours as Medica l base)/3 mL needed for [facility] nebulizer Wheezing solution or Shortness of Breath. acetaminoph Yes [id number] 325mg Take 10.25 [facility] en 160 mg/5 4-27 mL through it y of mL liquid 00:00: enteral 00 tube every Medical 6 (six) Branch hours as needed (pain, fever). pantoprazol 0 Yes [id number] 40mg Take 2 [facility] e 20 mg EC 4-27 tablets by ity of tablet 00:00: mouth daily. Medical Branch amLODIPine 0 Yes [id number] 5mg Take 1 [facility] 5 mg tablet 4-27 tablet ity of 00:00: through enteral Medical tube Branch daily. calcitrioL 2020-0 Yes [id number] .5ug Take 1 [facility] 0.5 mcg 4-27 capsule by ity of capsule 00:00: mouth daily. Medical Branch clopidogreL 0 Yes [id number] 75mg Take 1 [facility] 75 mg 4-27 tablet ity of tablet 00:00: through enteral Medical tube Branch daily. escitalopra 0 Yes [id number] 20mg Take 1 [facility] m oxalate 4-27 tablet ity of 20 mg 00:00: through [place] tablet 00 enteral Medical tube Branch daily. furosemide 0 Yes [id number] 40mg Take 1 [facility] 40 mg 4-27 tablet by ity of tablet 00:00: mouth [place] 00 every Medical morning Branch and evening. metFORMIN 2020-0 Yes [id number] 500mg Take 1 [facility] 500 mg 4-27 tablet ity of tablet 00:00: through [place] 00 enteral Medical tube 2 Branch (two) times daily with meals. ondansetron 2020-0 Yes [id number] 4mg Take 1 [facility] (ZOFRAN 4-27 tablet by ity of ODT) 4 mg 00:00: mouth [place] disintegrat 00 every 8 Medic al ing tablet (eight) Branch hours as needed for Nausea and Vomiting (N/V). traZODone 0 Yes [id number] 100mg Take 1 [facility] 100 mg 4-27 tablet ity of tablet 00:00: through [place] 00 enteral Medical tube at Branch bedtime. aspirin 81 2020-0 Yes [id number] 81mg Take 1 [facility] mg chewable 4-27 tablet ity of tablet 00:00: through [place] 00 enteral Medical tube Branch daily. atorvastati 0 Yes [id number] 80mg Take 1 [facility] n 80 mg 4-27 tablet ity of tablet 00:00: through [place] 00 enteral Medical tube at Branch bedtime. ipratropium 0 Yes [id number] 3mL Inhale 3 [facility] -albuteroL 4-27 mL every 6 ity of 0.5 mg-3 00:00: (six) [place] mg(2.5 mg 00 hours as Medica l base)/3 mL needed for [facility] nebulizer Wheezing solution or Shortness of Breath. acetaminoph 0 Yes [id number] 325mg Take 10.25 [facility] en 160 mg/5 4-27 mL through it y of mL liquid 00:00: enteral [place] 00 tube every Medical 6 (six) Branch hours as needed (pain, fever). pantoprazol 2020-0 Yes [id number] 40mg Take 2 [facility] e 20 mg EC 4-27 tablets by ity of tablet 00:00: mouth [place] 00 daily. Medical Branch amLODIPine 2020-0 Yes [id number] 5mg Take 1 [facility] 5 mg tablet 4-27 tablet ity of 00:00: through [place] 00 enteral Medical tube Branch daily. calcitrioL 0 Yes [id number] .5ug Take 1 [facility] 0.5 mcg 4-27 capsule by ity of capsule 00:00: mouth [place] 00 daily. Medical Branch clopidogreL 2020-0 Yes [id number] 75mg Take 1 [facility] 75 mg 4-27 tablet ity of tablet 00:00: through [place] 00 enteral Medical tube Branch daily. escitalopra Yes [id number] 20mg Take 1 [facility] m oxalate 4-27 tablet ity of 20 mg 00:00: through [place] tablet 00 enteral Medical tube Branch daily. furosemide Yes [id number] 40mg Take 1 [facility] 40 mg 4-27 tablet by ity of tablet 00:00: mouth [place] 00 every Medical morning Branch and evening. metFORMIN Yes [id number] 500mg Take 1 [facility] 500 mg 4-27 tablet ity of tablet 00:00: through [place] enteral Medical tube 2 Branch (two) times daily with meals. ondansetron Yes [id number] 4mg Take 1 [facility] (ZOFRAN 4-27 tablet by ity of ODT) 4 mg 00:00: mouth [place] disintegrat 00 every 8 Medic al ing tablet (eight) Branch hours as needed for Nausea and Vomiting (N/V). traZODone Yes [id number] 100mg Take 1 [facility] 100 mg 4-27 tablet ity of tablet 00:00: through [place] enteral Medical tube at Branch bedtime. aspirin 81 2020-0 Yes [id number] 81mg Take 1 [facility] mg chewable 4-27 tablet ity of tablet 00:00: through [place] 00 enteral Medical tube Branch daily. atorvastati Yes [id number] 80mg Take 1 [facility] n 80 mg 4-27 tablet ity of tablet 00:00: through [place] enteral Medical tube at Branch bedtime. ipratropium 0 Yes [id number] 3mL Inhale 3 [facility] -albuteroL 4-27 mL every 6 ity of 0.5 mg-3 00:00: (six) [place] mg(2.5 mg 00 hours as Medica l base)/3 mL needed for [facility] nebulizer Wheezing solution or Shortness of Breath. acetaminoph Yes [id number] 325mg Take 10.25 [facility] en 160 mg/5 4-27 mL through it y of mL liquid 00:00: enteral [place] 00 tube every Medical 6 (six) Branch hours as needed (pain, fever). pantoprazol Yes [id number] 40mg Take 2 [facility] e 20 mg EC 4-27 tablets by ity of tablet 00:00: mouth [place] 00 daily. Medical Branch amLODIPine Yes [id number] 5mg Take 1 [facility] 5 mg tablet 4-27 tablet ity of 00:00: through [place] 00 enteral Medical tube Branch daily. calcitrioL Yes [id number] .5ug Take 1 [facility] 0.5 mcg 4-27 capsule by ity of capsule 00:00: mouth [place] 00 daily. Medical Branch clopidogreL Yes [id number] 75mg Take 1 [facility] 75 mg 4-27 tablet ity of tablet 00:00: through [place] 00 enteral Medical tube Branch daily. escitalopra Yes [id number] 20mg Take 1 [facility] m oxalate 4-27 tablet ity of 20 mg 00:00: through [facility] 00 enteral Medical tube Branch daily. furosemide Yes [id number] 40mg Take 1 [facility] 40 mg 4-27 tablet by ity of tablet 00:00: mouth [place] 00 every Medical morning Branch and evening. metFORMIN Yes [id number] 500mg Take 1 [facility] 500 mg 4-27 tablet ity of tablet 00:00: through [place] 00 enteral Medical tube 2 Branch (two) times daily with meals. ondansetron Yes [id number] 4mg Take 1 [facility] (ZOFRAN 4-27 tablet by ity of ODT) 4 mg 00:00: mouth [place] disintegrat 00 every 8 Medic al ing tablet (eight) Branch hours as needed for Nausea and Vomiting (N/V). traZODone Yes [id number] 100mg Take 1 [facility] 100 mg 4-27 tablet ity of tablet 00:00: through [place] 00 enteral Medical tube at Branch bedtime. aspirin 81 0 Yes [id number] 81mg Take 1 [facility] mg chewable 4-27 tablet ity of tablet 00:00: through [place] 00 enteral Medical tube Branch daily. atorvastati Yes [id number] 80mg Take 1 [facility] n 80 mg 4-27 tablet ity of tablet 00:00: through [place] 00 enteral Medical tube at Branch bedtime. ipratropium Yes [id number] 3mL Inhale 3 [facility] -albuteroL 4-27 mL every 6 ity of 0.5 mg-3 00:00: (six) [place] mg(2.5 mg 00 hours as Medica l base)/3 mL needed for [facility] nebulizer Wheezing solution or Shortness of Breath. metoprolol 2020- No [id number] 100mg Take 10 mL [facility] 10 mg/mL 11-08 through ity of 00:00: 00:00 enteral [place] 00 :00 tube every Medical 12 Branch (twelve) hours. metoprolol 2020- No [id number] 100mg Take 10 mL [facility] 10 mg/mL 11-08 through ity of 00:00: 00:00 enteral [place] 00 :00 tube every Medical 12 Branch (twelve) hours. pantoprazol 2020- No [id number] 40mg Take 20 mL [facility] e 11-08 through ity of (PROTONIX) 00:00: 00:00 enteral [place] 2 mg/mL 00 :00 tube Medical oral daily. Branch suspension gabapentin 2020- No [id number] 300mg Take 6 mL Univers 250 mg/5 [...] Until Discontinu ed, Routine iohexoL 1- No [id number] 35mL 35 mL, Uni vers (OMNIPAQUE 11-07 Injection, it y of 300-50 mL)) 20:40: 21:03 TITRATE - [place] injection 00 :00 FOR Medical 35 mL PROCEDURE Branch USE, 1 dose, Starting Sat11/07/20 at 1540, Until Sat11/07/20 at 1603, Routine, Other ceFAZolin Yes Slow IV Unive rs (ANCEF) 11-07 Push, PRN, ity of injection 20:30: [place] [facility] Medical 11/07/20 at Branch 1530, Until Discontinu ed, KATHY lidocaine Yes PRN, Univers 1% (PF) 11-07 Starting ity of (XYLOCAINE) 20:27: Mon [place] injection 00 11/07/20 at [facility] 1527, Branch Until Discontinu ed, Routine iohexol 202- No [id number] 100mL 100 mL, Univers (OMNIPAQUE 11-07 Oral, ity of 350 BULK) 14:45: 14:00 ONCE, 1 [place] 100 mL 00 :00 dose, [facility] Medical 11/07/20 at Branch 0945, KATHY gabapentin Yes 300mg 300 mg, Uni vers (NEURONTIN) 11-06 Enteral, ity of 250 mg/5 mL 01:00: TID, First [place] solution 00 dose on Medical 300 mg Sat [place] 11/05/20 at 2000, Until Discontinu ed, Routine HYDROcodone 2020- No 5mg 5 mg, Univ ers -acetaminop 11-05 Oral, ity of hen (HYCET) 20:07: 20:37 ONCE, 1 [place] 7.5-325 00 :00 dose, Sat Medical mg/15 mL 11/05/20 at [facility] h solution 5 1515, mg Routine acetaminoph Yes 325mg 325 mg, Un michael en 11-05 Enteral, ity of (TYLENOL) 20:06: Q6HPRN, [place] 160 mg/5 mL 54 Starting [facility] liquid 325 Sat [place] mg 11/05/20 at 1506, Until Discontinu ed, Routine, pain, fever Potassium 2020-2020- No 20meq 20 mEq, Uni vers Bicarb-Citr 11-05 Enteral, ity of ic Acid 11:45: 14:22 ONCE, 1 [place] (EFFER-K) 00 :00 dose, Sat Medic al effervescen 11/05/20 at Br anch t tablet 20 0645, mEq Routine furosemide 2020- No 20mg 20 mg, Univ ers (LASIX) 11-04 Slow IV ity of injection 22:00: 23:28 Push, [place] 20 mg 00 :00 ONCE, 1 Medical dose, [facility] 11/04/20 at 1700, Routine metoprolol No 75mg 75 mg, Univ ers (LOPRESSOR) 11-04 Enteral, ity of 10 mg/mL 21:15: 18:40 Q12H ABX, You as oral 00 :26 First dose Medical suspension (after Branch 75 mg last modificati on) on Sat11/04/20 at 1615, Until Discontinu ed, Routine iohexol 2020- No [id number] 25mL 25 mL, Un michael (OMNIPAQUE 11-04 Oral, ity of 350 BULK) 14:30: 14:40 ONCE, 1 [place] 25 [place] 00 :00 dose, [facility] 11/04/20 at Branch 0930, KATHY cranberry Yes 1{tbl} Take 1 [facility] ers fruit -22 tablet by ity of (CRANBERRY) 23:40: mouth [place] 450 mg Tab 55 daily. Medical Branch furosemide No 20mg 20 mg, Univ ers (LASIX) 11-03 Slow IV ity of injection 21:58: 22:08 Push, [place] 20 mg 00 :00 ONCE, 1 Medical dose, [facility] 11/03/20 at 1700, Routine metoprolol No 75mg 75 mg, Univ ers (LOPRESSOR) 11-03 Enteral, ity of 10 mg/mL 01:00: 11:44 BID, First [place] oral 00 :22 dose Medical suspension (after Branch 75 mg last modificati on) on [facility] 11/02/20 at 2000, Until Discontinu ed, Routine lactulose No 15mL 15 mL, Unive rs (CEPHULAC) 11-03 Oral, BID, it y of solution 15 01:00: 02:18 First dose [place] mL 00 :17 on Sat [facility] 11/02/20 at Branch 1999, Until Discontinu ed, Routine metOLazone 2020- No 2.5mg 2.5 mg, Un michael (ZAROXOLYN 4-21 04-22 Enteral, ity of 2.5MG) 22:15: 21:58 DAILY, [...] of ic Acid 19:15: 20:52 ONCE, 1 [place] (EFFER-K) 00 :00 dose, Sat Medic al [...] bacitracin- Yes Topical, Un michael polymyxin B - [id number], ity of (POLYSPORIN 20:26: Starting [place] ) 41 Tue Medical 500-10,000 11/01/20 at [facility] unit/gram 1526, topical Until ointment Discontinu ed, [...] 00 :39 CONTINUOUS Medical , Starting Branch [facility] 10/31/20 at 2215, Until Sat11/01/20 at 0803, Routine insulin Yes 14U 14 Units, Unive rs glargine 10-31 Subcutaneo ity o f (LANTUS 14:00: us, DAILY, [place] U-100) 00 First dose Medical injection (after Branch 14 Units last modificati on) on [facility] 10/31/20 at 0900, Until Discontinu ed, Routine Potassium 2020- No 40meq 40 mEq, Uni vers Bicarb-Citr 10-31 Enteral, ity of ic Acid 13:15: 13:13 ONCE, 1 [place] (EFFER-K) 00 :00 dose, [facility] Medic al effervescen 10/31/20 at Br anch t tablet 40 0815, mEq Routine furosemide 2020- No 20mg 20 mg, Univ ers (LASIX) 10-31 Slow IV ity of injection 05:45: 08:40 Push, [place] 20 mg 00 :00 ONCE, 1 Medical dose, [facility] 10/31/20 at 0045, Routine insulin Yes 4U 4 Units, Univer s lispro 10-30 Subcutaneo ity of (human) 22:00: us, TID [place] (HumaLOG 00 MEALS, Medical U-100) First dose Branch injection 4 (after Units last modificati on) on [place] 10/30/20 at 1700, Until Discontinu ed, Routine Sliding 2020- No Subcutaneo Uni vers Scale 10-30 04-20 us, Q4H, ity of Insulin - 21:00: 02:25 First dose [place] Lispro 00 :53 on [facility] (HumaLOG) + 10/30/20 at Br anch Fsbg [...] (after Branch Units last modificati on) on [place] 10/30/20 at 0900, Until Discontinu ed, Routine metoprolol No 50mg 50 mg, Univ ers (LOPRESSOR) 10-30 Enteral, ity of 10 mg/mL 13:00: 16:55 BID, First [place] oral 00 :29 dose Medical suspension (after Branch 50 mg last modificati on) on [place] 10/30/20 at 0800, Until Discontinu ed, Routine insulin No 2U 2 Units, Unive rs lispro 10-30 Subcutaneo ity of (human) 13:00: 19:53 us, TID [place] (HumaLOG 00 :49 MEALS, Medical U-100) First dose Branch injection 2 on [place] Units 10/30/20 at 0800, Until Discontinu ed, Routine Potassium No 20meq 20 mEq, Uni vers Bicarb-Citr 10-30 Enteral, ity of ic Acid 07:15: 06:24 ONCE, 1 [place] (EFFER-K) 00 :00 dose, [place] Medic al effervescen 10/30/20 at Br anch t tablet 20 0215, mEq Routine atorvastati Yes 80mg 80 mg, Univ ers n (LIPITOR) 10-30 Enteral, ity of tablet 80 02:00: QHS, First [place] mg 00 dose on Medical Sat Branch 10/29/20 at 2100, Until Discontinu ed, Routine metoprolol No 37.5mg 37.5 mg, Univers (LOPRESSOR) 10-30 Oral, BID, i ty of 10 mg/mL 01:00: 12:32 First dose [place] oral 00 :16 (after Medical suspension last Branch 37.5 mg modificati on) on 10/29/20 at 2000, Until Discontinu ed, Routine metoprolol No 5mg 5 mg, Slow Univers (LOPRESSOR) [...] 2330, 250 piggyback mL sulfur 2020- No [id number] 4mL 4 mL, Univ ers hexafluorid 10-28 Intravenou i ty of e microsphr 21:00: 21:00 s, ONCE, 1 [place] (LUMASON) 00 :00 dose, Fri Medic al injection 4 10/28/20 at Br anch mL 1600, Routine
membership coordinator approving Restricted medication : KISHORE ROSS SALAM [...] No 2.5mg 2.5 mg, Un michael (LOPRESSOR) 10-2515 Intravenou i ty of injection 23:00: 02:04 s, Q6H, [place] 2.5 mg 00 :18 First dose Medical (after Branch last modificati on) on 10/25/20 at 1800, Until Discontinu ed, Routine metoprolol No 5mg 5 mg, [facility] 10-25 Intravenou i ty of injection 5 21:00: 20:00 s, ONCE, 1 [place] mg 00 :00 dose, [facility] 10/25/20 at Branch 1600, Routine sodium No 4mL 4 mL, Univers chloride 7% 10-25 Inhalation i ty of (HYPER-JOSE) 16:15: 14:04 , BID, You as nebulizer 00 :03 First dose Medi lizzy solution 4 on Sat [place] mL 10/25/20 at 1115, Until Discontinu ed, Routine ampicillin No 2000mg 2,000 mg, Univers (POLYCILLIN 10-25 IV ity of -N) 2,000 16:15: 14:06 Piggyback, [place] mg in NaCl 00 :40 Q8H ABX, Medic al 0.9% (NS) First dose Bran ch 100 mL on Sat MINI-BAG 10/25/20 at 1115, Until Discontinu ed, 100 mL
R russ for Anti-Infec tive: Documented Infection< br>Documen tennille Infection Site: Urine<br&g t;Duration of Therapy: 7 days lactulose No 45mL 45 mL, [facility] rs (CEPHULAC) 10-25 Enteral, ity of solution 45 16:15: 15:35 ONCE, 1 [place] mL 00 :00 dose, [facility] 10/25/20 at Branch 1115, Routine ipratropium 2020- No 3mL 3 mL, Univ ers -albuteroL 10-25 Inhalation it y of (DUONEB) 16:13: 16:16 , QIDPRN, You as 0.5 mg-3 26 :25 Starting Medical mg(2.5 mg [facility] base)/3 mL 10/25/20 at nebulizer 1113, solution 3 Until Sat mL 10/29/20 at 1116, Routine, Wheezing sennosides- 2021-0 Yes 1{tbl} 1 tablet, [facility] docusate 10-25 Enteral, ity of sodium 15:15: [...] hours metoprolol 2020- No 12.5mg 12.5 mg, [facility] tartrate 10-25 Oral, BID, ity of (LOPRESSOR) 01:00: 20:17 First dose [place] half tablet 00 :28 on Mon Medica [...] g 00 :44 First dose Medical on [facility] 10/24/20 at 1430, Until Discontinu ed, Routine vancomycin No 15mg/kg 1,000 mg Univers (VANCOCIN) 10-23 (rounded ity of 1,000 mg in 18:30: 00:35 from 919.5 [place] NaCl 0.9% 00 :47 mg = 15 Medical (NS) 250 mL mg/kg Branch VIAL-MATE ?61.3 kg), IV IV piggyback Piggyback, Q24H ABX, First dose (after last modificati on) on [place] 10/23/20 at 1330, Until Discontinu ed, 250 mL
Reas on for Anti-Infec tive: Empiric Therapy for Suspected Infection< br>Empiric Therapy Site: Respirator y
Durat ion of therapy: 72 hours aspirin Yes 81mg 81 mg, Univers chewable 10-23 Oral, ity of tablet 81 14:00: DAILY, [place] mg 00 First dose Medical on [facility] 10/23/20 at 0900, Until Discontinu ed, Routine pantoprazol No 40mg 40 mg, IV Univers e 10-23 Piggyback, ity of (PROTONIX) 13:00: 14:12 Q12H, [place] 40 mg in 00 :01 First dose Medic al NaCl 0.9% on [facility] (NS) 100 mL 10/23/20 at MINI-BAG 0800, Until Discontinu ed, 100 mL Sliding No Subcutaneo Uni vers Scale 10-23 us, TID ity of Insulin - 13:00: 12:58 MEALS+HS, [place] Lispro 00 :53 First dose Medical (HumaLOG) + on [place] Branch Fsbg 10/23/20 at Testing 0800, Until Discontinu [...] 1,000 mg in 18:45: 21:13 from 919.5 [place] NaCl 0.9% 00 :00 mg = 15 [...] mcg/kg/min ity of 18:20: 12:12 ?61.3 kg [place] 00 :42 (1.839-18. Medical 39 mL/hr, Branch [...] 20mg Take 20 mg Univers m oxalate 10 by mouth ity of 20 mg 16:24: daily. [place] tablet 17 [facility] Branch traZODone Yes 100mg Take 100 Uni vers 100 mg 4-10 mg by ity of tablet 16:24: mouth at [place] [id number] bedtime. [facility] Branch insulin NPH No inject Uni vers hum/reg 10-22 04-10 under the ity of insulin hm 16:24: 00:00 skin. [place] (NOVOLIN 17 :00 Medical 70/30 SC) [place] glucagon Yes 1mg 1 mg, [facility] (GLUCAGEN 10 Intramuscu ity of DIAGNOSTIC 16:21: lar, PRN, [place] KIT) 56 Starting Medical injection 1 Sat Branch mg 10/22/20 at 1121, Until Discontinu ed, KATHY, Blood Glucose < or = 70 mg/dL and patient is unable to swallow or has mental changes. insulin 2021- No 5U inject 5 Unive rs lispro 100 07-29-16 Units ity of unit/mL pen 00:00: 05:59 under the [place] injector 00 :00 skin 3 Medical (three) Branch times daily. insulin 2021- No 5U inject 5 Unive rs lispro 100 07-29-16 Units ity of unit/mL pen 00:00: 05:59 under the [place] injector 00 :00 skin 3 Medical (three) Branch times daily. insulin 2021- No 5U inject 5 Unive rs lispro 100 07-29-16 Units ity of unit/mL pen 00:00: 05:59 under the [place] injector 00 :00 skin 3 Medical (three) [...] 2-03 tablet by ity of 00:00: mouth [place] 00 daily. Medical Branch calcitrioL 2019-07 Yes [...] Units ity of (LANTUS 00:00: under the [place] U-100 00 skin Medical INSULIN) daily. Branch 100 unit/mL injection insulin 2019-07 Yes 15U inject 15 Unive rs glargine 2-03 Units ity of (LANTUS 00:00: under the [place] U-100 00 skin Medical INSULIN) daily. Branch 100 unit/mL injection insulin 2019-07 Yes 15U inject 15 Unive rs glargine 2-03 Units ity of (LANTUS 00:00: under the [place] U-100 00 skin Medical INSULIN) daily. Branch [...] the ity of insulin hm 21:24: skin. [place] ([address] [address] [place]) Branch escitalopra 2019-07 Yes 20mg Take 20 mg Univers m oxalate 0-20 by mouth ity of 20 mg 21:24: daily. [facility] 44 Medical Branch traZODone 2019-07 Yes 100mg Take 100 Uni vers 100 mg 0-20 mg by ity of tablet 21:24: mouth at [place] [address] bedtime. Medical Branch insulin NPH 2019-07 Yes inject Univ ers hum/reg 0-20 under the ity of insulin hm 21:24: skin. [place] ([address] [address] [place]) Branch escitalopra 2019-07 Yes 20mg Take 20 mg Univers m oxalate 0-20 by mouth ity of 20 mg 21:24: daily. [place] [address] Medical Branch traZODone 2019-07 Yes 100mg Take 100 Uni vers 100 mg 0-20 mg by ity of tablet 21:24: mouth at [place] [address] bedtime. Medical Branch insulin NPH 2019-07 Yes inject Univ ers hum/reg 0-20 under the ity of insulin hm 21:24: skin. [place] (NOVO[address] [address] [place]) Branch escitalopra 2019-07 Yes 20mg Take 20 mg Univers m oxalate 0-20 by mouth ity of 20 mg 21:24: daily. [facility] 44 Medical Branch traZODone 2019-07 Yes 100mg Take 100 Uni vers 100 mg 0-20 mg by ity of tablet 21:24: mouth at [place] [address] bedtime. Medical Branch metFORMIN Yes [id number] 500mg Take 1 Univers 500 mg 4-16 tablet by ity of tablet 00:00: mouth 2 [place] 00 (two) Medical times Branch daily with meals. ondansetron 2020-0 Yes [id number] 4mg Take 1 Univers (ZOFRAN 4-16 tablet by ity of ODT) 4 mg 00:00: mouth [place] disintegrat 00 every 8 Medic al ing tablet (eight) Branch hours as needed for Nausea and Vomiting (N/V). metFORMIN 2020-0 Yes [id number] 500mg Take 1 Univers 500 mg 4-16 tablet by ity of tablet 00:00: mouth (two) Medical times Branch daily with meals. ondansetron 2020-0 Yes [id number] 4mg Take 1 Univers (ZOFRAN 4-16 tablet by ity of ODT) 4 mg 00:00: mouth [place] disintegrat 00 every 8 Medic al ing tablet (eight) Branch hours as needed for Nausea and Vomiting (N/V). metFORMIN 2020-0 Yes [id number] 500mg Take 1 Univers 500 mg 4-16 tablet by ity of tablet 00:00: mouth (two) Medical times Branch daily with meals. ondansetron 2020-0 Yes [id number] 4mg Take 1 Univers (ZOFRAN 4-16 tablet by ity of ODT) 4 mg 00:00: mouth [place] disintegrat 00 every 8 Medic al ing tablet (eight) Branch hours as needed for Nausea and Vomiting (N/V). metFORMIN 2020-0 Yes [id number] 500mg Take 1 Univers 500 mg 4-16 tablet by ity of tablet 00:00: mouth (two) Medical times Branch daily with meals. ondansetron 2020-0 Yes [id number] 4mg Take 1 Univers (ZOFRAN 4-16 tablet by ity of ODT) 4 mg 00:00: mouth [place] disintegrat 00 every 8 Medic al ing tablet (eight) Branch hours as needed for Nausea and Vomiting (N/V). metFORMIN 2020-0 Yes [id number] 500mg Take 1 Univers 500 mg 4-16 tablet by ity of tablet 00:00: mouth (two) Medical times Branch daily with meals. ondansetron 2020-0 Yes [id number] 4mg Take 1 Univers (ZOFRAN 4-16 tablet by ity of ODT) 4 mg 00:00: mouth [place] disintegrat 00 every 8 Medic al ing tablet (eight) Branch hours as needed for Nausea and Vomiting (N/V). metFORMIN 2020-0 Yes [id number] 500mg Take 1 Univers 500 mg 4-16 tablet by ity of tablet 00:00: mouth 2 (two) Medical times Branch daily with meals. ondansetron 2020-0 Yes [id number] 4mg Take 1 Univers (ZOFRAN 4-16 tablet by ity of ODT) 4 mg 00:00: mouth [place] disintegrat 00 every 8 Medic al ing tablet (eight) Branch hours as needed for Nausea and Vomiting (N/V). metFORMIN 2020-0 Yes [id number] 500mg Take 1 Univers 500 mg 4-16 tablet by ity of tablet 00:00: mouth 2 (two) Medical times Branch daily with meals. ondansetron 2020-0 Yes [id number] 4mg Take 1 Univers (ZOFRAN 4-16 tablet by ity of ODT) 4 mg 00:00: mouth [place] disintegrat 00 every 8 Medic al ing tablet (eight) Branch hours as needed for Nausea and Vomiting (N/V). metFORMIN 2020-0 Yes [id number] 500mg Take 1 Univers 500 mg 4-16 tablet by ity of tablet 00:00: mouth (two) Medical times Branch daily with meals. ondansetron 2020-0 Yes [id number] 4mg Take 1 Univers (ZOFRAN 4-16 tablet by ity of ODT) 4 mg 00:00: mouth [place] disintegrat 00 every 8 Medic al ing tablet (eight) Branch hours as needed for Nausea and Vomiting (N/V). metFORMIN 2020-0 Yes [id number] 500mg Take 1 Univers 500 mg 4-16 tablet by ity of tablet 00:00: mouth 2 (two) Medical times Branch daily with meals. ondansetron 2020-0 Yes [id number] 4mg Take 1 Univers (ZOFRAN 4-16 tablet by ity of ODT) 4 mg 00:00: mouth [place] disintegrat 00 every 8 Medic al ing tablet (eight) Branch hours as needed for Nausea and Vomiting (N/V). metFORMIN 2020-0 Yes [id number] 500mg Take 1 Univers 500 mg 4-16 tablet by ity of tablet 00:00: mouth 2 (two) Medical times Branch daily with meals. ondansetron 2020-0 Yes [id number] 4mg Take 1 Univers (ZOFRAN 4-16 tablet by ity of ODT) 4 mg 00:00: mouth [place] disintegrat 00 every 8 Medic al ing tablet (eight) Branch hours as needed for Nausea and Vomiting (N/V). metFORMIN 2020-0 Yes [id number] 500mg Take 1 Univers 500 mg 4-16 tablet by ity of tablet 00:00: mouth 2 00 (two) Medical times Branch daily with meals. ondansetron 2020-0 Yes [id number] 4mg Take 1 Univers (ZOFRAN 4-16 tablet by ity of ODT) 4 mg 00:00: mouth [place] disintegrat 00 every 8 Medic al ing tablet (eight) Branch hours as needed for Nausea and Vomiting (N/V). metFORMIN 2020-0 Yes [id number] 500mg Take 1 Univers 500 mg 4-16 tablet by ity of tablet 00:00: mouth 2 (two) Medical times Branch daily with meals. ondansetron 2020-0 Yes [id number] 4mg Take 1 Univers (ZOFRAN 4-16 tablet by ity of ODT) 4 mg 00:00: mouth [place] disintegrat 00 every 8 Medic al ing tablet (eight) Branch hours as needed for Nausea and Vomiting (N/V). metFORMIN 2020-0 Yes [id number] 500mg Take 1 Univers 500 mg 4-16 tablet by ity of tablet 00:00: mouth 2 (two) Medical times Branch daily with meals. ondansetron 2020-0 Yes [id number] 4mg Take 1 Univers (ZOFRAN 4-16 tablet by ity of ODT) 4 mg 00:00: mouth [place] disintegrat 00 every 8 Medic al ing tablet (eight) Branch hours as needed for Nausea and Vomiting (N/V). metFORMIN 2020-0 Yes [id number] 500mg Take 1 Univers 500 mg 4-16 tablet by ity of tablet 00:00: mouth 2 (two) Medical times Branch daily with meals. ondansetron 2020-0 Yes [id number] 4mg Take 1 Univers (ZOFRAN 4-16 tablet by ity of ODT) 4 mg 00:00: mouth [place] disintegrat 00 every 8 Medic al ing tablet (eight) Branch hours as needed for Nausea and Vomiting (N/V). metFORMIN 2020-0 Yes [id number] 500mg Take 1 Univers 500 mg 4-16 tablet by ity of tablet 00:00: mouth 2 (two) Medical times Branch daily with meals. ondansetron 2020-0 Yes [id number] 4mg Take 1 Univers (ZOFRAN 4-16 tablet by ity of ODT) 4 mg 00:00: mouth [place] disintegrat 00 every 8 Medic al ing tablet (eight) Branch hours as needed for Nausea and Vomiting (N/V). metFORMIN 2020-0 Yes [id number] 500mg Take 1 Univers 500 mg 4-16 tablet by ity of tablet 00:00: mouth 2 [place] (two) Medical times Branch daily with meals. ondansetron 2020-0 Yes [id number] 4mg Take 1 Univers (ZOFRAN 4-16 tablet by ity of ODT) 4 mg 00:00: mouth [place] disintegrat 00 every 8 Medic al ing tablet (eight) Branch hours as needed for Nausea and Vomiting (N/V). metFORMIN 2020-0 Yes [id number] 500mg Take 1 Univers 500 mg 4-16 tablet by ity of tablet 00:00: mouth (two) Medical times Branch daily with meals. ondansetron 2020-0 Yes [id number] 4mg Take 1 Univers (ZOFRAN 4-16 tablet by ity of ODT) 4 mg 00:00: mouth [place] disintegrat 00 every 8 Medic al ing tablet (eight) Branch hours as needed for Nausea and Vomiting (N/V). metFORMIN 2020-0 Yes [id number] 500mg Take 1 Univers 500 mg 4-16 tablet by ity of tablet 00:00: mouth (two) Medical times Branch daily with meals. ondansetron 2020-0 Yes [id number] 4mg Take 1 Univers (ZOFRAN 4-16 tablet by ity of ODT) 4 mg 00:00: mouth [place] disintegrat 00 every 8 Medic al ing tablet (eight) Branch hours as needed for Nausea and Vomiting (N/V). metFORMIN 2020-0 Yes [id number] 500mg Take 1 Univers 500 mg 4-16 tablet by ity of tablet 00:00: mouth 2 [place] (two) Medical times Branch daily with meals. ondansetron 2020-0 Yes [id number] 4mg Take 1 Univers (ZOFRAN 4-16 tablet by ity of ODT) 4 mg 00:00: mouth [place] disintegrat 00 every 8 Medic al ing tablet (eight) Branch hours as needed for Nausea and Vomiting (N/V). metFORMIN 2020-0 Yes [id number] 500mg Take 1 Univers 500 mg 4-16 tablet by ity of tablet 00:00: mouth 2 [place] 00 (two) Medical times Branch daily with meals. ondansetron 2020-0 Yes [id number] 4mg Take 1 Univers (ZOFRAN 4-16 tablet by ity of ODT) 4 mg 00:00: mouth [place] disintegrat 00 every 8 Medic al ing tablet (eight) Branch hours as needed for Nausea and Vomiting (N/V). metFORMIN 2020-0 Yes [id number] 500mg Take 1 Univers 500 mg 4-16 tablet by ity of tablet 00:00: mouth 2 [place] (two) Medical times Branch daily with meals. ondansetron 2020-0 Yes [id number] 4mg Take 1 Univers (ZOFRAN 4-16 tablet by ity of ODT) 4 mg 00:00: mouth [place] disintegrat 00 every 8 Medic al ing tablet (eight) Branch hours as needed for Nausea and Vomiting (N/V). metFORMIN 2020-0 Yes [id number] 500mg Take 1 Univers 500 mg 4-16 tablet by ity of tablet 00:00: mouth 2 (two) Medical times Branch daily with meals. ondansetron 2020-0 Yes [id number] 4mg Take 1 Univers (ZOFRAN 4-16 tablet by ity of ODT) 4 mg 00:00: mouth [place] disintegrat 00 every 8 Medic al ing tablet (eight) Branch hours as needed for Nausea and Vomiting (N/V). metFORMIN 2020-0 Yes [id number] 500mg Take 1 Univers 500 mg 4-16 tablet by ity of tablet 00:00: mouth 2 [place] (two) Medical times Branch daily with meals. ondansetron 2020-0 Yes [id number] 4mg Take 1 Univers (ZOFRAN 4-16 tablet by ity of ODT) 4 mg 00:00: mouth [place] disintegrat 00 every 8 Medic al ing tablet (eight) Branch hours as needed for Nausea and Vomiting (N/V). metFORMIN 2020-0 Yes [id number] 500mg Take 1 Univers 500 mg 4-16 tablet by ity of tablet 00:00: mouth (two) Medical times Branch daily with meals. ondansetron 2020-0 Yes [id number] 4mg Take 1 Univers (ZOFRAN 4-16 tablet by ity of ODT) 4 mg 00:00: mouth [place] disintegrat 00 every 8 Medic al ing tablet (eight) Branch hours as needed for Nausea and Vomiting (N/V). metFORMIN 2020-0 Yes [id number] 500mg Take 1 Univers 500 mg 4-16 tablet by ity of tablet 00:00: mouth (two) Medical times Branch daily with meals. ondansetron 2020-0 Yes [id number] 4mg Take 1 Univers (ZOFRAN 4-16 tablet by ity of ODT) 4 mg 00:00: mouth [place] disintegrat 00 every 8 Medic al ing tablet (eight) Branch hours as needed for Nausea and Vomiting (N/V). metFORMIN 2020-0 Yes [id number] 500mg Take 1 Univers 500 mg 4-16 tablet by ity of tablet 00:00: mouth (two) Medical times Branch daily with meals. ondansetron 2020-0 Yes [id number] 4mg Take 1 Univers (ZOFRAN 4-16 tablet by ity of ODT) 4 mg 00:00: mouth [place] disintegrat 00 every 8 Medic al ing tablet (eight) Branch hours as needed for Nausea and Vomiting (N/V). metFORMIN 2020-0 Yes [id number] 500mg Take 1 Univers 500 mg 4-16 tablet by ity of tablet 00:00: mouth (two) Medical times Branch daily with meals. ondansetron 2020-0 Yes [id number] 4mg Take 1 Univers (ZOFRAN 4-16 tablet by ity of ODT) 4 mg 00:00: mouth [place] disintegrat 00 every 8 Medic al ing tablet (eight) Branch hours as needed for Nausea and Vomiting (N/V). metFORMIN 2020-0 Yes [id number] 500mg Take 1 Univers 500 mg 4-16 tablet by ity of tablet 00:00: mouth 2 (two) Medical times Branch daily with meals. ondansetron 2020-0 Yes [id number] 4mg Take 1 Univers (ZOFRAN 4-16 tablet by ity of ODT) 4 mg 00:00: mouth [place] disintegrat 00 every 8 Medic al ing tablet (eight) Branch hours as needed for Nausea and Vomiting (N/V). metFORMIN 2019- Yes [id number] 500mg Take 1 Univers 500 mg 4-16 tablet by ity of tablet 00:00: mouth 2 [place] 00 (two) Medical times Branch daily with meals. ondansetron 2019- Yes [id number] 4mg Take 1 Univers (ZOFRAN 4-16 tablet by ity of ODT) 4 mg 00:00: mouth [place] disintegrat 00 every 8 Medic al ing tablet (eight) Branch hours as needed for Nausea and Vomiting (N/V). metFORMIN 2019-2020- No [id number] 500mg Take 1 Univers 500 mg 4-16 04-27 tablet by ity of tablet 00:00: 00:00 mouth 2 [place] 00 :00 (two) Medical times Branch daily with meals. ondansetron 2019-2020- No [id number] 4mg Take 1 Univers (ZOFRAN 4-16 04-27 tablet by ity of ODT) 4 mg 00:00: 00:00 mouth [place] disintegrat 00 :00 every 8 Medic al ing tablet (eight) Branch hours as needed for Nausea and Vomiting (N/V). metFORMIN 2019-2020- No [id number] 500mg Take 1 Univers 500 mg 4-16 04-27 tablet by ity of tablet 00:00: 00:00 mouth 2 [place] 00 :00 (two) Medical times Branch daily with meals. ondansetron 2019-2020- No [id number] 4mg Take 1 Univers (ZOFRAN 4-16 04-27 [...] [place] mg 00 on Sat Medical 10/27/19 at Branch 2100, Until Discontinu ed, Routine amoxicillin 2020-0 Yes [id number] 500mg Take 1 Univers 500 mg 4-15 capsule by ity of capsule 00:00: mouth 2 [place] 00 (two) Medical times Branch daily. Lactobacill 2020-0 Yes [id number] 1{tbl} Take 1 Univers us 4-15 tablet by ity of Acidophilus 00:00: mouth 2 You as 1 billion 00 (two) Medical cell Tab times Branch daily. traMADol 50 2020-0 Yes [id number] 50mg Take 1 Univers mg tablet 4-15 tablet by ity o f 00:00: mouth [place] 00 every 8 Medical (eight) Branch hours as needed for Pain (scale 7-10). amoxicillin 2020-0 Yes [id number] 500mg Take 1 Univers 500 mg 4-15 capsule by ity of capsule 00:00: mouth 2 [place] 00 (two) Medical times Branch daily. Lactobacill 2020-0 Yes [id number] 1{tbl} Take 1 Univers us 4-15 tablet by ity of Acidophilus 00:00: mouth 2 [facility] [place] 1 billion 00 (two) Medical cell Tab times Branch daily. traMADol 50 2020-0 Yes [id number] 50mg Take 1 [facility] mg tablet 4-15 tablet by ity o f 00:00: mouth [place] 00 every 8 Medical (eight) Branch hours as needed for Pain (scale 7-10). amoxicillin 2020-0 Yes [id number] 500mg Take 1 [facility] 500 mg 4-15 capsule by ity of capsule 00:00: mouth 2 [place] 00 (two) Medical times Branch daily. Lactobacill 2020-0 Yes [id number] 1{tbl} Take 1 [facility] us 4-15 tablet by ity of Acidophilus 00:00: mouth 2 [place] 1 billion 00 (two) Medical cell Tab times Branch daily. traMADol 50 2020-0 Yes [id number] 50mg Take 1 [facility] mg tablet 4-15 tablet by ity o f 00:00: mouth [place] 00 every 8 Medical (eight) Branch hours as needed for Pain (scale 7-10). amoxicillin 2020-0 Yes [id number] 500mg Take 1 [facility] 500 mg 4-15 capsule by ity of capsule 00:00: mouth 2 [place] 00 (two) Medical times Branch daily. Lactobacill 2020-0 Yes [id number] 1{tbl} Take 1 [facility] us 4-15 tablet by ity of Acidophilus 00:00: mouth 2 [place] 1 billion 00 (two) Medical cell Tab times Branch daily. traMADol 50 2020-0 Yes [id number] 50mg Take 1 [facility] mg tablet 4-15 tablet by ity o f 00:00: mouth [place] 00 every 8 Medical (eight) Branch hours as needed for Pain (scale 7-10). amoxicillin 2020-0 Yes [id number] 500mg Take 1 [facility] 500 mg 4-15 capsule by ity of capsule 00:00: mouth 2 [place] 00 (two) Medical times Branch daily. Lactobacill 2020-0 Yes [id number] 1{tbl} Take 1 [facility] us 4-15 tablet by ity of Acidophilus 00:00: mouth 2 [place] 1 billion 00 (two) Medical cell Tab times Branch daily. traMADol 50 2020-0 Yes [id number] 50mg Take 1 [facility] mg tablet 4-15 tablet by ity o f 00:00: mouth [place] 00 every 8 Medical (eight) Branch hours as needed for Pain (scale 7-10). amoxicillin 2020-0 Yes [id number] 500mg Take 1 [facility] 500 mg 4-15 capsule by ity of capsule 00:00: mouth 2 [place] 00 (two) Medical times Branch daily. Lactobacill 2020-0 Yes [id number] 1{tbl} Take 1 [facility] us 4-15 tablet by ity of Acidophilus 00:00: mouth 2 [place] 1 billion 00 (two) Medical cell Tab times Branch daily. traMADol 50 2020-0 Yes [id number] 50mg Take 1 [facility] mg tablet 4-15 tablet by ity o f 00:00: mouth [place] 00 every 8 Medical (eight) Branch hours as needed for Pain (scale 7-10). amoxicillin 2020-0 Yes [id number] 500mg Take 1 [facility] 500 mg 4-15 capsule by ity of capsule 00:00: mouth 2 [place] 00 (two) Medical times Branch daily. Lactobacill 2020-0 Yes [id number] 1{tbl} Take 1 [facility] us 4-15 tablet by ity of Acidophilus 00:00: mouth 2 [place] 1 billion 00 (two) Medical cell Tab times Branch daily. traMADol 50 2020-0 Yes [id number] 50mg Take 1 [facility] mg tablet 4-15 tablet by ity o f 00:00: mouth [place] 00 every 8 Medical (eight) Branch hours as needed for Pain (scale 7-10). amoxicillin 2020-0 Yes [id number] 500mg Take 1 [facility] 500 mg 4-15 capsule by ity of capsule 00:00: mouth 2 00 (two) Medical times Branch daily. Lactobacill 2020-0 Yes [id number] 1{tbl} Take 1 [facility] us 4-15 tablet by ity of Acidophilus 00:00: mouth 2 [place] 1 billion 00 (two) Medical cell Tab times Branch daily. traMADol 50 2020-0 Yes [id number] 50mg Take 1 [facility] mg tablet 4-15 tablet by ity o f 00:00: mouth [place] 00 every 8 Medical (eight) Branch hours as needed for Pain (scale 7-10). amoxicillin 2020-0 Yes [id number] 500mg Take 1 [facility] 500 mg 4-15 capsule by ity of capsule 00:00: mouth 2 (two) Medical times Branch daily. Lactobacill 2020-0 Yes [id number] 1{tbl} Take 1 [facility] us 4-15 tablet by ity of Acidophilus 00:00: mouth 2 [place] 1 billion 00 (two) Medical cell Tab times Branch daily. traMADol 50 2020-0 Yes [id number] 50mg Take 1 [facility] mg tablet 4-15 tablet by ity o f 00:00: mouth [place] 00 every 8 Medical (eight) Branch hours as needed for Pain (scale 7-10). amoxicillin 2020-0 Yes [id number] 500mg Take 1 [facility] 500 mg 4-15 capsule by ity of capsule 00:00: mouth 2 00 (two) Medical times Branch daily. Lactobacill 2020-0 Yes [id number] 1{tbl} Take 1 [facility] us 4-15 tablet by ity of Acidophilus 00:00: mouth 2 [place] 1 billion 00 (two) Medical cell Tab times Branch daily. traMADol 50 2020-0 Yes [id number] 50mg Take 1 [facility] mg tablet 4-15 tablet by ity o f 00:00: mouth [place] 00 every 8 Medical (eight) Branch hours as needed for Pain (scale 7-10). amoxicillin 2020-0 Yes [id number] 500mg Take 1 [facility] 500 mg 4-15 capsule by ity of capsule 00:00: mouth 2 (two) Medical times Branch daily. Lactobacill 2020-0 Yes [id number] 1{tbl} Take 1 [facility] us 4-15 tablet by ity of Acidophilus 00:00: mouth 2 [place] 1 [place] 00 (two) Medical cell Tab times Branch daily. traMADol 50 2020-0 Yes [id number] 50mg Take 1 [facility] mg tablet 4-15 tablet by ity o f 00:00: mouth [place] 00 every 8 Medical (eight) Branch hours as needed for Pain (scale 7-10). amoxicillin 2020-0 Yes [id number] 500mg Take 1 [facility] 500 mg 4-15 capsule by ity of capsule 00:00: mouth 2 [place] 00 (two) Medical times Branch daily. Lactobacill 2020-0 Yes [id number] 1{tbl} Take 1 [facility] us 4-15 tablet by ity of Acidophilus 00:00: mouth 2 [place] 1 billion 00 (two) Medical cell Tab times Branch daily. traMADol 50 2020-0 Yes [id number] 50mg Take 1 [facility] mg tablet 4-15 tablet by ity o f 00:00: mouth [place] 00 every 8 Medical (eight) Branch hours as needed for Pain (scale 7-10). amoxicillin 2020-0 Yes [id number] 500mg Take 1 [facility] 500 mg 4-15 capsule by ity of capsule 00:00: mouth 2 [place] 00 (two) Medical times Branch daily. Lactobacill 2020-0 Yes [id number] 1{tbl} Take 1 [facility] us 4-15 tablet by ity of Acidophilus 00:00: mouth 2 [place] 1 billion 00 (two) Medical cell Tab times Branch daily. traMADol 50 2020-0 Yes [id number] 50mg Take 1 [facility] mg tablet 4-15 tablet by ity o f 00:00: mouth [place] 00 every 8 Medical (eight) Branch hours as needed for Pain (scale 7-10). amoxicillin 2020-0 Yes [id number] 500mg Take 1 [facility] 500 mg 4-15 capsule by ity of capsule 00:00: mouth 2 [place] 00 (two) Medical times Branch daily. Lactobacill 2020-0 Yes [id number] 1{tbl} Take 1 [facility] us 4-15 tablet by ity of Acidophilus 00:00: mouth 2 [place] 1 billion 00 (two) Medical cell Tab times Branch daily. traMADol 50 2020-0 Yes [id number] 50mg Take 1 [facility] mg tablet 4-15 tablet by ity o f 00:00: mouth [place] 00 every 8 Medical (eight) Branch hours as needed for Pain (scale 7-10). amoxicillin 2020-0 Yes [id number] 500mg Take 1 [facility] 500 mg 4-15 capsule by ity of capsule 00:00: mouth 2 00 (two) Medical times Branch daily. Lactobacill 2020-0 Yes [id number] 1{tbl} Take 1 [facility] us 4-15 tablet by ity of Acidophilus 00:00: mouth 2 [place] 1 billion 00 (two) Medical cell Tab times Branch daily. traMADol 50 2020-0 Yes [id number] 50mg Take 1 [facility] mg tablet 4-15 tablet by ity o f 00:00: mouth [place] 00 every 8 Medical (eight) Branch hours as needed for Pain (scale 7-10). amoxicillin 2020-0 Yes [id number] 500mg Take 1 [facility] 500 mg 4-15 capsule by ity of capsule 00:00: mouth 2 (two) Medical times Branch daily. Lactobacill 2020-0 Yes [id number] 1{tbl} Take 1 [facility] us 4-15 tablet by ity of Acidophilus 00:00: mouth 2 [place] 1 billion 00 (two) Medical cell Tab times Branch daily. traMADol 50 2020-0 Yes [id number] 50mg Take 1 [facility] mg tablet 4-15 tablet by ity o f 00:00: mouth [place] 00 every 8 Medical (eight) Branch hours as needed for Pain (scale 7-10). amoxicillin 2020-0 Yes [id number] 500mg Take 1 [facility] 500 mg 4-15 capsule by ity of capsule 00:00: mouth 2 (two) Medical times Branch daily. Lactobacill 2020-0 Yes [id number] 1{tbl} Take 1 [facility] us 4-15 tablet by ity of Acidophilus 00:00: mouth 2 [place] 1 billion 00 (two) Medical cell Tab times Branch daily. traMADol 50 2020-0 Yes [id number] 50mg Take 1 [facility] mg tablet 4-15 tablet by ity o f 00:00: mouth [place] 00 every 8 Medical (eight) Branch hours as needed for Pain (scale 7-10). amoxicillin 2020-0 Yes [id number] 500mg Take 1 [facility] 500 mg 4-15 capsule by ity of capsule 00:00: mouth 2 [place] 00 (two) Medical times Branch daily. Lactobacill 2020-0 Yes [id number] 1{tbl} Take 1 [facility] us 4-15 tablet by ity of Acidophilus 00:00: mouth 2 [facility] [place] 1 billion 00 (two) Medical cell Tab times Branch daily. traMADol 50 2020-0 Yes [id number] 50mg Take 1 [facility] mg tablet 4-15 tablet by ity o f 00:00: mouth [place] 00 every 8 Medical (eight) Branch hours as needed for Pain (scale 7-10). amoxicillin 2020-0 Yes [id number] 500mg Take 1 [facility] 500 mg 4-15 capsule by ity of capsule 00:00: mouth 2 [place] 00 (two) Medical times Branch daily. Lactobacill 2020-0 Yes [id number] 1{tbl} Take 1 [facility] us 4-15 tablet by ity of Acidophilus 00:00: mouth 2 [place] as 1 billion 00 (two) Medical cell Tab times Branch daily. traMADol 50 2020-0 Yes [id number] 50mg Take 1 [facility] mg tablet 4-15 tablet by ity o f 00:00: mouth [place] 00 every 8 Medical (eight) Branch hours as needed for Pain (scale 7-10). amoxicillin 2020-0 Yes [id number] 500mg Take 1 [facility] 500 mg 4-15 capsule by ity of capsule 00:00: mouth 2 00 (two) Medical times Branch daily. Lactobacill 2020-0 Yes [id number] 1{tbl} Take 1 [facility] us 4-15 tablet by ity of Acidophilus 00:00: mouth 2 [facility] [place] 1 billion 00 (two) Medical cell Tab times Branch daily. traMADol 50 2020-0 Yes [id number] 50mg Take 1 [facility] mg tablet 4-15 tablet by ity o f 00:00: mouth [place] 00 every 8 Medical (eight) Branch hours as needed for Pain (scale 7-10). amoxicillin 2020-0 Yes [id number] 500mg Take 1 [facility] 500 mg 4-15 capsule by ity of capsule 00:00: mouth 2 00 (two) Medical times Branch daily. Lactobacill 2020-0 Yes [id number] 1{tbl} Take 1 [facility] us 4-15 tablet by ity of Acidophilus 00:00: mouth 2 [place] 1 billion 00 (two) Medical cell Tab times Branch daily. traMADol 50 2020-0 Yes [id number] 50mg Take 1 [facility] mg tablet 4-15 tablet by ity o f 00:00: mouth [place] 00 every 8 Medical (eight) Branch hours as needed for Pain (scale 7-10). amoxicillin 2020-0 Yes [id number] 500mg Take 1 [facility] 500 mg 4-15 capsule by ity of capsule 00:00: mouth 2 [place] 00 (two) Medical times Branch daily. Lactobacill 2020-0 Yes [id number] 1{tbl} Take 1 [facility] us 4-15 tablet by ity of Acidophilus 00:00: mouth 2 [facility] as 1 billion 00 (two) Medical cell Tab times Branch daily. traMADol 50 2020-0 Yes [id number] 50mg Take 1 [facility] mg tablet 4-15 tablet by ity o f 00:00: mouth [place] 00 every 8 Medical (eight) Branch hours as needed for Pain (scale 7-10). amoxicillin 2020-0 Yes [id number] 500mg Take 1 [facility] 500 mg 4-15 capsule by ity of capsule 00:00: mouth 2 [place] 00 (two) Medical times Branch daily. Lactobacill 2020-0 Yes [id number] 1{tbl} Take 1 [facility] us 4-15 tablet by ity of Acidophilus 00:00: mouth 2 [facility] as 1 billion 00 (two) Medical cell Tab times Branch daily. traMADol 50 2020-0 Yes [id number] 50mg Take 1 [facility] mg tablet 4-15 tablet by ity o f 00:00: mouth [place] 00 every 8 Medical (eight) Branch hours as needed for Pain (scale 7-10). amoxicillin 2020-0 Yes [id number] 500mg Take 1 [facility] 500 mg 4-15 capsule by ity of capsule 00:00: mouth 2 [place] 00 (two) Medical times Branch daily. Lactobacill 2020-0 Yes [id number] 1{tbl} Take 1 [facility] us 4-15 tablet by ity of Acidophilus 00:00: mouth 2 [facility] as 1 billion 00 (two) Medical cell Tab times Branch daily. traMADol 50 2020-0 Yes [id number] 50mg Take 1 [facility] mg tablet 4-15 tablet by ity o f 00:00: mouth [place] 00 every 8 Medical (eight) Branch hours as needed for Pain (scale 7-10). amoxicillin 2020-0 Yes [id number] 500mg Take 1 [facility] 500 mg 4-15 capsule by ity of capsule 00:00: mouth 2 [place] 00 (two) Medical times Branch daily. Lactobacill 2020-0 Yes [id number] 1{tbl} Take 1 [facility] us 4-15 tablet by ity of Acidophilus 00:00: mouth 2 [facility] as 1 billion 00 (two) Medical cell Tab times Branch daily. traMADol 50 2020-0 Yes [id number] 50mg Take 1 [facility] mg tablet 4-15 tablet by ity o f 00:00: mouth [place] 00 every 8 Medical (eight) Branch hours as needed for Pain (scale 7-10). amoxicillin 2020-0 Yes [id number] 500mg Take 1 [facility] 500 mg 4-15 capsule by ity of capsule 00:00: mouth 2 [place] 00 (two) Medical times Branch daily. Lactobacill 2020-0 Yes [id number] 1{tbl} Take 1 [facility] us 4-15 tablet by ity of Acidophilus 00:00: mouth 2 [facility] as 1 billion 00 (two) Medical cell Tab times Branch daily. traMADol 50 2020-0 Yes [id number] 50mg Take 1 [facility] mg tablet 4-15 tablet by ity o f 00:00: mouth [place] 00 every 8 Medical (eight) Branch hours as needed for Pain (scale 7-10). amoxicillin 2020-0 Yes [id number] 500mg Take 1 [facility] 500 mg 4-15 capsule by ity of capsule 00:00: mouth 2 00 (two) Medical times Branch daily. Lactobacill 2020-0 Yes [id number] 1{tbl} Take 1 [facility] us 4-15 tablet by ity of Acidophilus 00:00: mouth 2 [place] 1 billion 00 (two) Medical cell Tab times Branch daily. traMADol 50 2020-0 Yes [id number] 50mg Take 1 [facility] mg tablet 4-15 tablet by ity o f 00:00: mouth [place] 00 every 8 Medical (eight) Branch hours as needed for Pain (scale 7-10). amoxicillin 2020-0 Yes [id number] 500mg Take 1 [facility] 500 mg 4-15 capsule by ity of capsule 00:00: mouth 2 [place] 00 (two) Medical times Branch daily. Lactobacill 2020-0 Yes [id number] 1{tbl} Take 1 [facility] us 4-15 tablet by ity of Acidophilus 00:00: mouth 2 [facility] as 1 billion 00 (two) Medical cell Tab times Branch daily. traMADol 50 2020-0 Yes [id number] 50mg Take 1 [facility] mg tablet 4-15 tablet by ity o f 00:00: mouth [place] 00 every 8 Medical (eight) Branch hours as needed for Pain (scale 7-10). amoxicillin 2020-0 Yes [id number] 500mg Take 1 [facility] 500 mg 4-15 capsule by ity of capsule 00:00: mouth 2 [place] 00 (two) Medical times Branch daily. Lactobacill 2020-0 Yes [id number] 1{tbl} Take 1 [facility] us 4-15 tablet by ity of Acidophilus 00:00: mouth 2 [facility] as 1 billion 00 (two) Medical cell Tab times Branch daily. traMADol 50 2020-0 Yes [id number] 50mg Take 1 [facility] mg tablet 4-15 tablet by ity o f 00:00: mouth [place] 00 every 8 Medical (eight) Branch hours as needed for Pain (scale 7-10). amoxicillin 2020-0 Yes [id number] 500mg Take 1 [facility] 500 mg 4-15 capsule by ity of capsule 00:00: mouth 2 [place] 00 (two) Medical times Branch daily. Lactobacill 2020-0 Yes [id number] 1{tbl} Take 1 [facility] us 4-15 tablet by ity of Acidophilus 00:00: mouth 2 You as 1 billion 00 (two) Medical cell Tab times Branch daily. traMADol 50 2020-0 Yes [id number] 50mg Take 1 [facility] mg tablet 4-15 tablet by ity o f 00:00: mouth [place] 00 every 8 Medical (eight) Branch hours as needed for Pain (scale 7-10). amoxicillin 2020-0 Yes [id number] 500mg Take 1 [facility] 500 mg 4-15 capsule by ity of capsule 00:00: mouth 2 [place] 00 (two) Medical times Branch daily. Lactobacill 2020-0 Yes [id number] 1{tbl} Take 1 [facility] us 4-15 tablet by ity of Acidophilus 00:00: mouth 2 You as 1 billion 00 (two) Medical cell Tab times Branch daily. traMADol 50 2020-0 Yes [id number] 50mg Take 1 [facility] mg tablet 4-15 tablet by ity o f 00:00: mouth [place] 00 every 8 Medical (eight) Branch hours as needed for Pain (scale 7-10). traMADol 50 2020-0 Yes [id number] 50mg Take 1 [facility] mg tablet 4-15 tablet by ity o f 00:00: mouth [place] 00 every 8 Medical (eight) Branch hours as needed for Pain (scale 7-10). traMADol 50 2019-2020- No [id number] 50mg Take 1 [facility] mg tablet 4-15 -27 tablet by ity of 00:00: 00:00 mouth [place] 00 :00 every 8 Medical (eight) Branch hours as needed for Pain (scale 7-10). traMADol 50 2020- No [id number] 50mg Take 1 [facility] mg tablet 4-15 -27 tablet by ity of 00:00: 00:00 mouth [place] 00 :00 every 8 Medical (eight) Branch hours as needed for Pain (scale 7-10). amoxicillin 2019-2020- No [id number] 500mg Take 1 [facility] 500 mg 4-15 04-10 capsule by ity of capsule 00:00: 00:00 mouth 2 [place] 00 :00 (two) Medical times Branch daily. amoxicillin 2019-2020- No [id number] 500mg Take 1 [facility] 500 mg 4-15 04-10 capsule by ity of capsule 00:00: 00:00 mouth 2 [place] 00 :00 (two) Medical times Branch daily. amoxicillin 2019-0 2020- No [id number] 500mg Take 1 [facility] 500 mg 4-15 04-10 capsule by ity of capsule 00:00: 00:00 mouth 2 [place] 00 :00 (two) Medical times Branch daily. Lactobacill 2019-2020- No [id number] 1{tbl} Take 1 [facility] us 4-15 04-10 tablet by ity of Acidophilus 00:00: 00:00 mouth 2 [place] 1 billion 00 :00 (two) Medical cell Tab times Branch daily. metoclopram 2019-0 Yes 5mg 5 mg, Slow Univers bj HCl 4-14 IV Push, ity of (REGLAN) 23:14: Q6HPRN, [place] injection 5 57 Starting Medi lizzy mg [facility] Branch 10/27/19 at 1814, Until Discontinu ed, Routine, Headache traMADol 2019-0 Yes 50mg 50 mg, Univers (ULTRAM) 4-14 Oral, ity of tablet 50 23:14: Q4HPRN, [place] mg 45 Starting Medical [facility] Branch 10/27/19 at 1814, Until Discontinu ed, Routine, Pain (scale 4-6), Headache acetaminoph 2020-0 Yes 650mg 650 mg, Un michael en 4-14 Oral, ity of (TYLENOL) 18:40: Q4HPRN, [place] tablet 650 56 Starting Medic al mg [facility] 10/27/19 at 1340, Until Discontinu ed, Routine, Pain (scale 1-3) furosemide 2020-0 Yes 40mg 40 mg, Unive rs (LASIX) 4-14 Oral, ity of tablet 40 14:00: QAM+PM, [place] mg 00 First dose Medical on [facility] 10/27/19 at 0900, Until Discontinu ed, Routine metoprolol 2020-0 Yes 50mg 50 mg, Unive rs succinate 4-14 Oral, ity of XL (TOPROL 14:00: DAILY, [place] XL) tablet 00 First dose Med ical 50 mg on [facility] 10/27/19 at 0900, Until Discontinu ed, Routine clopidogreL 2020-0 Yes 75mg 75 mg, Univ ers (PLAVIX) 4-14 Oral, ity of tablet 75 14:00: DAILY, [place] mg 00 First dose Medical on [facility] 10/27/19 at 0900, Until Discontinu ed, Routine enoxaparin 2020-0 Yes 30mg 30 mg, Unive rs (LOVENOX) 4-14 Subcutaneo ity of injection 14:00: us, DAILY, [place] 30 mg 00 First dose Medical on [facility] 10/27/19 at 0900, Until Discontinu ed, Routine docusate 2020-0 Yes 100mg 100 mg, Unive rs (COLACE) 4-14 Oral, BID, ity o f capsule 100 13:00: First dose [place] mg 00 on [facility] 10/27/19 at Branch 0800, Until Discontinu ed, Routine Sliding 2020-0 Yes Subcutaneo Univ ers Scale 4-14 us, TID ity of Insulin - 13:00: MEALS+HS, You as [place] 00 First dose Medical (NOVOLOG) + on [facility] 10/27/19 at Testing 0800, Until Discontinu [...] IV ity of (D50W) 08:53: Push, PRN, [place] injection 48 Starting Medica l 25 mL [...] Mon Med ical ing tablet 10/26/19 at [facility] 8 mg 2200, KATHY sodium 2020-0 2020- No [id number] 15g Take 60 mL Univers polystyrene 10-25 by mouth ity of sulfonate 00:00: 04:59 daily for [place] 15 gram/60 00 :00 2 doses. Medic al mL Branch suspension sodium 2020-0 2020- No [id number] 15g Take 60 mL [facility] polystyrene 4-13 04-15 by mouth ity of sulfonate 00:00: 00:00 daily for [place] 15 gram/60 00 :00 2 doses. Medic al mL Branch suspension metoprolol 2020-0 2020- No 50mg Take 50 mg [facility] succinate 10-18-06 by mouth ity o f 50 mg CSpX 21:11: 00:00 daily. [facility] [place] [facility] 36 :00 Medical Branch spironolact 2020-0 2020- No 25mg Take 25 mg Univers one 25 mg 10-18-06 by mouth ity o f tablet 21:11: 00:00 daily. [place] 36 :00 Medical Branch metoprolol 2020-0 2020- No 50mg Take 50 mg [facility] succinate 10-18-06 by mouth ity o f 50 mg CSpX 21:11: 00:00 daily. [facility] [place] [facility] 36 :00 Medical Branch spironolact 2020-0 2020- No 25mg Take 25 mg [facility] one 25 mg 10-18-06 by mouth ity o f tablet 21:11: 00:00 daily. [place] 36 :00 Medical Branch clopidogreL 2020-0 Yes [...] by ity of tablet 00:00: mouth at [place] 00 bedtime. Medical Branch metoprolol 2020-0 Yes [...] No 50mg Take 1 Univ ers succinate 10-1827 tablet by ity of XL 50 mg 24 00:00: 00:00 mouth [place] hr tablet 00 :00 daily. Medical Branch spironolact 2019-2019- No 25mg Take 1 Uni vers one 25 mg 10-18-15 tablet by ity of tablet 00:00: 00:00 mouth [place] 00 :00 daily. [facility] Branch metoprolol 2020-0 2020- No 50mg Take 50 mg [facility] succinate 10-18- by mouth ity o f 50 mg CSpX 00:00: 00:00 daily. [place] 00 :00 [facility] metoprolol 2020-0 2020- No 50mg Take 50 mg Univers succinate 10-18- by mouth ity o f 50 mg CSpX 00:00: 00:00 daily. [place] 00 :00 [facility] metoprolol 2020-0 Yes 50mg Take 50 mg U nivers succinate 3-19 by mouth ity of 50 mg CSpX 23:09: daily. [address] spironolact 2020-0 Yes 25mg Take 25 mg Univers one 25 mg 3-19 by mouth ity of tablet 23:09: daily. [address] insulin NPH 2020-0 Yes 18U inject 18 U nivers human 3-19 Units ity of isophane 23:09: [place] the [place] (HUMULIN N 16 skin 2 Medical NPH INSULIN (two) Branch KWIKPEN SC) times daily. metoprolol 2020-0 Yes 50mg Take 50 mg U nivers succinate 3-19 by mouth ity of 50 mg CSpX 23:09: daily. [address] spironolact 2020-0 Yes 25mg Take 25 mg [facility] one 25 mg 3-19 by mouth ity of tablet 23:09: daily. [address] insulin NPH 2020-0 Yes 18U inject [...] 3-19 ity of OINT) 2 % 19:00: [place] skin 00 Medical ointment Branch sulfamethox 2020-0 2020- No 1{tbl} Take 1 U nivers azole-trime 3-19 03-19 tablet by it y of thoprim 16:32: 00:00 mouth 2 [place] (BACTRIM 29 :00 (two) Medical DS) 800-160 times Branch mg per daily. tablet amoxicillin 2020-0 Yes 1{tbl} 1 tablet, Univers -clavulanat 3-19 Oral, ity of e 15:30: Q12H, [place] (AUGMENTIN) 00 First dose Me dical 875-125 [...] QHSPRN, You as 25 Starting Medical Sat Branch 09/30/19 at 2119, Until Discontinu ed, Routine, Insomnia aspirin 2020-0 Yes 81mg 81 mg, Univers chewable 3-19 Oral, QHS, ity o f tablet 81 02:00: First dose [place] mg 00 on Sat Medical 09/30/19 at Branch 2100, Until Discontinu ed, Routine silver 2020-0 Yes Topical, Univers sulfADIAZIN 3-19 BID, First it y of E 01:00: dose on [place] (SILVADENE) 00 Wed Medical 1 % cream 09/30/19 at [facility] 2000, Until Discontinu ed, Routine ferrous 2020-0 Yes [id number] 325mg Take 1 Un michael sulfate 3-19 tablet by ity of (FERROUSUL) 00:00: mouth 3 [place] as 325 mg (65 00 (three) Medica l mg iron) times Branch tablet daily with meals. ferrous 2020-0 Yes [id number] 325mg Take 1 Un michael sulfate 3-19 tablet by ity of (FERROUSUL) 00:00: mouth 3 [place] 325 mg (65 00 (three) Medica l mg iron) times Branch tablet daily with meals. ferrous 2020-0 Yes [id number] 325mg Take 1 Un michael sulfate 3-19 tablet by ity of (FERROUSUL) 00:00: mouth 3 [place] 325 mg (65 00 (three) Medica l mg iron) times Branch tablet daily with meals. ferrous 2020-0 Yes [id number] 325mg Take 1 Un michael sulfate 3-19 tablet by ity of (FERROUSUL) 00:00: mouth 3 [place] 325 mg (65 00 (three) Medica l mg iron) times Branch tablet daily with meals. ferrous 2020-0 Yes [id number] 325mg Take 1 Un michael sulfate 3-19 tablet by ity of (FERROUSUL) 00:00: mouth 3 [place] 325 mg (65 00 (three) Medica l mg iron) times Branch tablet daily with meals. ferrous 2020-0 Yes [id number] 325mg Take 1 Un michael sulfate 3-19 tablet by ity of (FERROUSUL) 00:00: mouth 3 [place] 325 mg (65 00 (three) Medica l mg iron) times Branch tablet daily with meals. ferrous 2020-0 Yes [id number] 325mg Take 1 Un michael sulfate 3-19 tablet by ity of (FERROUSUL) 00:00: mouth 3 [place] 325 mg (65 00 (three) Medica l mg iron) times Branch tablet daily with meals. ferrous 2020-0 Yes [id number] 325mg Take 1 Un michael sulfate 3-19 tablet by ity of (FERROUSUL) 00:00: mouth 3 [place] 325 mg (65 00 (three) Medica l mg iron) times Branch tablet daily with meals. ferrous 2020-0 Yes [id number] 325mg Take 1 Un michael sulfate 3-19 tablet by ity of (FERROUSUL) 00:00: mouth 3 [place] 325 mg (65 00 (three) Medica l mg iron) times Branch tablet daily with meals. ferrous 2020-0 Yes [id number] 325mg Take 1 Un michael sulfate 3-19 tablet by ity of (FERROUSUL) 00:00: mouth 3 [place] 325 mg (65 00 (three) Medica l mg iron) times Branch tablet daily with meals. ferrous 2020-0 Yes [id number] 325mg Take 1 Un michael sulfate 3-19 tablet by ity of (FERROUSUL) 00:00: mouth 3 [place] 325 mg (65 00 (three) Medica l mg iron) times Branch tablet daily with meals. ferrous 2020-0 Yes [id number] 325mg Take 1 Un michael sulfate 3-19 tablet by ity of (FERROUSUL) 00:00: mouth 3 [place] 325 mg (65 00 (three) Medica l mg iron) times Branch tablet daily with meals. ferrous 2020-0 Yes [id number] 325mg Take 1 Un michael sulfate 3-19 tablet by ity of (FERROUSUL) 00:00: mouth 3 [place] 325 mg (65 00 (three) Medica l mg iron) times Branch tablet daily with meals. ferrous 2020-0 Yes [id number] 325mg Take 1 Un michael sulfate 3-19 tablet by ity of (FERROUSUL) 00:00: mouth 3 [place] 325 mg (65 00 (three) Medica l mg iron) times Branch tablet daily with meals. ferrous 2020-0 Yes [id number] 325mg Take 1 Un [place] sulfate 3-19 tablet by ity of (FERROUSUL) 00:00: mouth 3 [place] 325 mg (65 00 (three) Medica l mg iron) times Branch tablet daily with meals. ferrous 2020-0 Yes [id number] 325mg Take 1 [facility] [place] sulfate 3-19 tablet by ity of (FERROUSUL) 00:00: mouth 3 [place] 325 mg (65 00 (three) Medica l mg iron) times Branch tablet daily with meals. ferrous 2020-0 Yes [id number] 325mg Take 1 Un [place] sulfate 3-19 tablet by ity of (FERROUSUL) 00:00: mouth 3 [place] 325 mg (65 00 (three) Medica l mg iron) times Branch tablet daily with meals. ferrous 2020-0 Yes [id number] 325mg Take 1 Un [place] sulfate 3-19 tablet by ity of (FERROUSUL) 00:00: mouth 3 [place] 325 mg (65 00 (three) Medica l mg iron) times Branch tablet daily with meals. ferrous 2020-0 Yes [id number] 325mg Take 1 [facility] [place] sulfate 3-19 tablet by ity of (FERROUSUL) 00:00: mouth 3 [place] 325 mg (65 00 (three) Medica l mg iron) times Branch tablet daily with meals. ferrous 2020-0 Yes [id number] 325mg Take 1 [facility] [place] sulfate 3-19 tablet by ity of (FERROUSUL) 00:00: mouth 3 [place] 325 mg (65 00 (three) Medica l mg iron) times Branch tablet daily with meals. ferrous 2020-0 Yes [id number] 325mg Take 1 Un [place] sulfate 3-19 tablet by ity of (FERROUSUL) 00:00: mouth 3 [place] 325 mg (65 00 (three) Medica l mg iron) times Branch tablet daily with meals. ferrous 2020-0 Yes [id number] 325mg Take 1 [facility] [place] sulfate 3-19 tablet by ity of (FERROUSUL) 00:00: mouth 3 [place] 325 mg (65 00 (three) Medica l mg iron) times Branch tablet daily with meals. ferrous 2020-0 Yes [id number] 325mg Take 1 [facility] [place] sulfate 3-19 tablet by ity of (FERROUSUL) 00:00: mouth 3 [place] 325 mg (65 00 (three) Medica l mg iron) times Branch tablet daily with meals. ferrous 2020-0 Yes [id number] 325mg Take 1 [facility] [place] sulfate 3-19 tablet by ity of (FERROUSUL) 00:00: mouth 3 [place] 325 mg (65 00 (three) Medica l mg iron) times Branch tablet daily with meals. ferrous 2020-0 Yes [id number] 325mg Take 1 [facility] [place] sulfate 3-19 tablet by ity of (FERROUSUL) 00:00: mouth 3 [place] 325 mg (65 00 (three) Medica l mg iron) times Branch tablet daily with meals. ferrous 2020-0 Yes [id number] 325mg Take 1 [facility] [place] sulfate 3-19 tablet by ity of (FERROUSUL) 00:00: mouth 3 [place] 325 mg (65 00 (three) Medica l mg iron) times Branch tablet daily with meals. ferrous 2020-0 Yes [id number] 325mg Take 1 [facility] [place] sulfate 3-19 tablet by ity of (FERROUSUL) 00:00: mouth 3 [place] 325 mg (65 00 (three) Medica l mg iron) times Branch tablet daily with meals. ferrous 2020-0 Yes [id number] 325mg Take 1 [facility] [place] sulfate 3-19 tablet by ity of (FERROUSUL) 00:00: mouth 3 [place] 325 mg (65 00 (three) Medica l mg iron) times Branch tablet daily with meals. ferrous 2020-0 Yes [id number] 325mg Take 1 [facility] [place] sulfate 3-19 tablet by ity of (FERROUSUL) 00:00: mouth 3 [place] 325 mg (65 00 (three) Medica l mg iron) times Branch tablet daily with meals. ferrous 2020-0 Yes [id number] 325mg Take 1 [facility] [place] sulfate 3-19 tablet by ity of (FERROUSUL) 00:00: mouth 3 [place] 325 mg (65 00 (three) Medica l mg iron) times Branch tablet daily with meals. ferrous 2020-0 Yes [id number] 325mg Take 1 [facility] [place] sulfate 3-19 tablet by ity of (FERROUSUL) 00:00: mouth 3 [place] 325 mg (65 00 (three) Medica l mg iron) times Branch tablet daily with meals. ferrous 2020-0 Yes [id number] 325mg Take 1 [facility] [place] sulfate 3-19 tablet by ity of (FERROUSUL) 00:00: mouth 3 [place] 325 mg (65 00 (three) Medica l mg iron) times Branch tablet daily with meals. ferrous 2020-0 Yes [id number] 325mg Take 1 [facility] [place] sulfate 3-19 tablet by ity of (FERROUSUL) 00:00: mouth 3 [place] 325 mg (65 00 (three) Medica l mg iron) times Branch tablet daily with meals. ferrous 2020-0 Yes [id number] 325mg Take 1 Un [place] sulfate 3-19 tablet by ity of (FERROUSUL) 00:00: mouth 3 [place] 325 mg (65 00 (three) Medica l mg iron) times Branch tablet daily with meals. ferrous 2020-0 Yes [id number] 325mg Take 1 Un [place] sulfate 3-19 tablet by ity of (FERROUSUL) 00:00: mouth 3 [place] 325 mg (65 00 (three) Medica l mg iron) times Branch tablet daily with meals. ferrous 2020-0 Yes [id number] 325mg Take 1 Un [place] sulfate 3-19 tablet by ity of (FERROUSUL) 00:00: mouth 3 [place] 325 mg (65 00 (three) Medica l mg iron) times Branch tablet daily with meals. ferrous 2020-0 Yes [id number] 325mg Take 1 Un [place] sulfate 3-19 tablet by ity of (FERROUSUL) 00:00: mouth 3 [place] 325 mg (65 00 (three) Medica l mg iron) times Branch tablet daily with meals. ferrous 2020-0 Yes [id number] 325mg Take 1 Un [place] sulfate 3-19 tablet by ity of (FERROUSUL) 00:00: mouth 3 [place] 325 mg (65 00 (three) Medica l mg iron) times Branch tablet daily with meals. ferrous 2020-0 Yes [id number] 325mg Take 1 Un [place] sulfate 3-19 tablet by ity of (FERROUSUL) 00:00: mouth 3 [place] 325 mg (65 00 (three) Medica l mg iron) times Branch tablet daily with meals. ferrous 2020-0 Yes [id number] 325mg Take 1 Un [place] sulfate 3-19 tablet by ity of (FERROUSUL) 00:00: mouth 3 [place] 325 mg (65 00 (three) Medica l mg iron) times Branch tablet daily with meals. ferrous 2019-0 2020- No [id number] 325mg Take 1 U nivers sulfate 3-19 04-27 tablet by ity of (FERROUSUL) 00:00: 00:00 mouth 3 [place] 325 mg (65 00 :00 (three) Medica l mg iron) times Branch tablet daily with meals. ferrous 2019-0 2020- No [id number] 325mg Take 1 U nivers sulfate 3-19 [...] Oral, ity of XL (TOPROL 14:00: DAILY, [place] XL) tablet 00 First dose Med ical 50 mg on Sat Branch 09/30/19 at 0900, Until Discontinu ed insulin NPH 2020-0 Yes 15U 15 Units, U nivers (HUMULIN N) 18 Subcutaneo it y of injection 14:00: , [place] 15 Units 00 QAM+PM, Medical First dose [...]
Facu lty member approving Restricted medication : ALBUSTAMI, ROSIBEL Sliding 2020-0 Yes Subcutaneo Univ ers Scale 3-18 us, TID ity of Insulin - 13:00: MEALS+HS, You as Lispro 00 First dose Medical (HumaLOG) + on Sat Branch Fsbg 09/30/19 at Testing 0800, Until Discontinu [...] 0.9% 2019-0 2020- No 1000mL at 50 [facility] ers (NS) IV 09-29 03-18 mL/hr, IV ity of infusion 03:00: 15:47 Infusion, You as 1,000 mL 00 :11 CONTINUOUS Medic al , Starting Branch Sat09/29/19 at 2200, Until Sat09/30/19 at 1047, Routine melatonin 2020-0 Yes 3mg 3 mg, Univers (MELATIN) -18 Oral, QHS, ity of tablet 3 mg 02:30: First dose [place] 00 on Sat [facility] 09/29/19 at Branch 2130, Until Discontinu ed, Routine atorvastati 2020-0 Yes 40mg 40 mg, Univ ers n (LIPITOR) 3-18 Oral, QHS, it y of tablet 40 02:00: First dose [place] mg 00 on Sat [facility] 09/29/19 at Branch 2100, Until Discontinu ed, Routine metoprolol 2020-0 Yes 50mg Take 50 mg U nivers succinate 3-18 by mouth ity of 50 mg CSpX 01:49: daily. [place] [address] Medical Branch spironolact 2020-0 Yes 25mg Take 25 mg Univers one 25 mg 3-18 by mouth ity of tablet 01:49: daily. [place] [address] Medical Branch insulin NPH 2020-0 Yes 18U inject 18 U nivers human 3-18 Units ity of isophane 01:49: [place] (HUMULIN N 18 skin 2 Medical NPH INSULIN (two) Branch [place] [place]) times daily. sulfamethox 2020-0 Yes 1{tbl} Take 1 Un [facility]ichael azole-trime 3-18 tablet by ity of thoprim 01:49: mouth 2 [place] (BACTRIM 18 (two) Medical DS) 800-160 times Branch mg per daily. tablet metoprolol 2020-0 Yes 50mg Take 50 mg U nivers succinate 3-18 by mouth ity of 50 mg CSpX 01:49: daily. [place] [address] Medical Branch spironolact 2020-0 Yes 25mg Take 25 mg Univers one 25 mg 3-18 by mouth ity of tablet 01:49: daily. [place] [address] Medical Branch insulin NPH 2020-0 Yes 18U [...] 3-18 Oral, ity of (TYLENOL) 01:47: Q6HPRN, [place] tablet 650 36 Starting Medic al mg [facility] 09/29/19 at 2046, Until Discontinu ed, Routine, Pain (scale 1-3) nitroglycer 2020-0 Yes .4mg 0.4 mg, Uni vers in 18 Sublingual ity of (NITROSTAT) 01:46: , Q5MIN You as sublingual 06 PRN, Medical tablet 0.4 Starting Branc h mg [facility] 09/29/19 at 2045, Until Discontinu ed, Routine, Chest pain furosemide 2020-0 2020- No 40mg 40 mg, IV U nivers (LASIX) 18 -17 Push, ity of injection 00:00: 23:22 ONCE, 1 [place] 40 mg 00 :00 dose, [facility] 09/29/19 at Branch 1900, KATHY Sulfamethox Sulfamethox 2020-0 Yes M.A. TAKE 1 Univers azole-Trime azole-Trime 3-17 TABLET ity of thoprim thoprim 00:00: TWICE [place] 800-160 MG 800-160 MG 00 DAILY. for Physici Oral Tablet Oral Tablet 7 days ans metoprolol 2020-0 Yes 50mg Take 50 mg U nivers succinate 3-16 by mouth ity of 50 mg CSpX 18:06: daily. [address] spironolact 2020-0 Yes 25mg Take 25 mg Univers one 25 mg 3-16 by mouth ity of tablet 18:06: daily. [address] insulin NPH 2020-0 Yes 18U inject 18 U nivers human 3-16 Units ity of isophane 18:06: [place] (HUMULIN N 02 skin 2 Medical NPH INSULIN (two) Branch [facility]) times daily. metoprolol 2020-0 Yes 50mg Take 50 mg U nivers succinate 3-16 by mouth ity of 50 mg CSpX 18:06: daily. [address] spironolact 2020-0 Yes 25mg Take 25 mg Univers one 25 mg 3-16 by mouth ity of tablet 18:06: daily. [address] insulin NPH 2020-0 Yes 18U inject 18 U nivers human 3-16 Units ity of isophane 18:06: [place] (HUMULIN N 02 skin 2 Medical NPH INSULIN (two) Branch [facility]) times daily. sulfamethox 2020-0 2020- No [id number] 1{tbl} Take 1 Univers azole-trime 09-2017 tablet by it y of thoprim 00:00: 04:59 mouth 2 [place] (BACTRIM 00 :00 (two) Medical DS) 800-160 times Branch mg per daily for tablet 7 days. sulfamethox 2020-0 2020- No [id number] 1{tbl} Take 1 Univers azole-trime 09-20 tablet by it y of thoprim 00:00: 04:59 mouth 2 [place] (BACTRIM 00 :00 (two) Medical DS) 800-160 times Branch mg per daily for tablet 7 days. sulfamethox 2020-0 2020- No [id number] 1{tbl} Take 1 Univers azole-trime 09-20 tablet by it y of thoprim 00:00: 04:59 mouth 2 [place] (BACTRIM 00 :00 (two) Medical DS) 800-160 times Branch mg per daily for tablet 7 days. ondansetron 2020-0 2020- No 4mg 4 mg, Univ [facility] (ZOFRAN-ODT 09-18 Oral, ity of ) 03:00: [...] ty of nus 02:15: 02:15 lar, ONCE, [place] (ADACEL) 00 :00 1 dose, Medical injection 09/18/19 Bran ch 0.5 mL at 2014, Routine ondansetron 2020-0 Yes [id number] 4mg Take 1 Univers 4 mg 3-06 tablet by ity of disintegrat 00:00: mouth [place] ing tablet 00 every 8 Medica l (eight) Branch hours as needed for Nausea and Vomiting (N/V) for up to 15 doses. ondansetron 2020-0 Yes [id number] 4mg Take 1 Univers 4 mg 3-06 tablet by ity of disintegrat 00:00: mouth [place] ing tablet 00 every 8 Medica l (eight) Branch hours as needed for Nausea and Vomiting (N/V) for up to 15 doses. ondansetron 2020-0 Yes [id number] 4mg Take 1 Univers 4 mg 3-06 tablet by ity of disintegrat 00:00: mouth [place] ing tablet 00 every 8 Medica l (eight) Branch hours as needed for Nausea and Vomiting (N/V) for up to 15 doses. ondansetron 2020-0 Yes [id number] 4mg Take 1 Univers 4 mg 3-06 tablet by ity of disintegrat 00:00: mouth [place] ing tablet 00 every 8 Medica l (eight) Branch hours as needed for Nausea and Vomiting (N/V) for up to 15 doses. ondansetron 2020-0 Yes [id number] 4mg Take 1 Univers 4 mg 3-06 tablet by ity of disintegrat 00:00: mouth [place] ing tablet 00 every 8 Medica l (eight) Branch hours as needed for Nausea and Vomiting (N/V) for up to 15 doses. ondansetron 2020-0 Yes [id number] 4mg Take 1 Univers 4 mg 3-06 tablet by ity of disintegrat 00:00: mouth [place] ing tablet 00 every 8 Medica l (eight) Branch hours as needed for Nausea and Vomiting (N/V) for up to 15 doses. ondansetron 2020-0 Yes [id number] 4mg Take 1 Univers 4 mg 3-06 tablet by ity of disintegrat 00:00: mouth [place] ing tablet 00 every 8 Medica l (eight) Branch hours as needed for Nausea and Vomiting (N/V) for up to 15 doses. ondansetron 2020-0 Yes [id number] 4mg Take 1 Univers 4 mg 3-06 tablet by ity of disintegrat 00:00: mouth [place] ing tablet 00 every 8 Medica l (eight) Branch hours as needed for Nausea and Vomiting (N/V) for up to 15 doses. ondansetron 2020-0 Yes [id number] 4mg Take 1 Univers 4 mg 3-06 tablet by ity of disintegrat 00:00: mouth [place] ing tablet 00 every 8 Medica l (eight) Branch hours as needed for Nausea and Vomiting (N/V) for up to 15 doses. ondansetron 2020-0 Yes [id number] 4mg Take 1 Univers 4 mg 3-06 tablet by ity of disintegrat 00:00: mouth [place] ing tablet 00 every 8 Medica l (eight) Branch hours as needed for Nausea and Vomiting (N/V) for up to 15 doses. ondansetron 2020-0 Yes [id number] 4mg Take 1 Univers 4 mg 3-06 tablet by ity of disintegrat 00:00: mouth [place] ing tablet 00 every 8 Medica l (eight) Branch hours as needed for Nausea and Vomiting (N/V) for up to 15 doses. ondansetron 2020-0 Yes [id number] 4mg Take 1 Univers 4 mg 3-06 tablet by ity of disintegrat 00:00: mouth [place] ing tablet 00 every 8 Medica l (eight) Branch hours as needed for Nausea and Vomiting (N/V) for up to 15 doses. ondansetron 2020-0 Yes [id number] 4mg Take 1 Univers 4 mg 3-06 tablet by ity of disintegrat 00:00: mouth [place] ing tablet 00 every 8 Medica l (eight) Branch hours as needed for Nausea and Vomiting (N/V) for up to 15 doses. ondansetron 2020-0 Yes [id number] 4mg Take 1 Univers 4 mg 3-06 tablet by ity of disintegrat 00:00: mouth [place] ing tablet 00 every 8 Medica l (eight) Branch hours as needed for Nausea and Vomiting (N/V) for up to 15 doses. ondansetron 2020-0 Yes [id number] 4mg Take 1 Univers 4 mg 3-06 tablet by ity of disintegrat 00:00: mouth [place] ing tablet 00 every 8 Medica l (eight) Branch hours as needed for Nausea and Vomiting (N/V) for up to 15 doses. ondansetron 2020-0 Yes [id number] 4mg Take 1 Univers 4 mg 3-06 tablet by ity of disintegrat 00:00: mouth [place] ing tablet 00 every 8 Medica l (eight) Branch hours as needed for Nausea and Vomiting (N/V) for up to 15 doses. ondansetron 2020-0 Yes [id number] 4mg Take 1 Univers 4 mg 3-06 tablet by ity of disintegrat 00:00: mouth [place] ing tablet 00 every 8 Medica l (eight) Branch hours as needed for Nausea and Vomiting (N/V) for up to 15 doses. ondansetron 2020-0 Yes [id number] 4mg Take 1 Univers 4 mg 3-06 tablet by ity of disintegrat 00:00: mouth [place] ing tablet 00 every 8 Medica l (eight) Branch hours as needed for Nausea and Vomiting (N/V) for up to 15 doses. ondansetron 2020-0 Yes [id number] 4mg Take 1 Univers 4 mg 3-06 tablet by ity of disintegrat 00:00: mouth [place] ing tablet 00 every 8 Medica l (eight) Branch hours as needed for Nausea and Vomiting (N/V) for up to 15 doses. ondansetron 2020-0 Yes [id number] 4mg Take 1 Univers 4 mg 3-06 tablet by ity of disintegrat 00:00: mouth [place] ing tablet 00 every 8 Medica l (eight) Branch hours as needed for Nausea and Vomiting (N/V) for up to 15 doses. ondansetron 2020-0 Yes [id number] 4mg Take 1 Univers 4 mg 3-06 tablet by ity of disintegrat 00:00: mouth [place] ing tablet 00 every 8 Medica l (eight) Branch hours as needed for Nausea and Vomiting (N/V) for up to 15 doses. ondansetron 2020-0 Yes [id number] 4mg Take 1 Univers 4 mg 3-06 tablet by ity of disintegrat 00:00: mouth [place] ing tablet 00 every 8 Medica l (eight) Branch hours as needed for Nausea and Vomiting (N/V) for up to 15 doses. ondansetron 2020-0 Yes [id number] 4mg Take 1 Univers 4 mg 3-06 tablet by ity of disintegrat 00:00: mouth [place] ing tablet 00 every 8 Medica l (eight) Branch hours as needed for Nausea and Vomiting (N/V) for up to 15 doses. ondansetron 2020-0 Yes [id number] 4mg Take 1 Univers 4 mg 3-06 tablet by ity of disintegrat 00:00: mouth [place] ing tablet 00 every 8 Medica l (eight) Branch hours as needed for Nausea and Vomiting (N/V) for up to 15 doses. ondansetron 2020-0 Yes [id number] 4mg Take 1 Univers 4 mg 3-06 tablet by ity of disintegrat 00:00: mouth [place] ing tablet 00 every 8 Medica l (eight) Branch hours as needed for Nausea and Vomiting (N/V) for up to 15 doses. ondansetron 2020-0 Yes [id number] 4mg Take 1 Univers 4 mg 3-06 tablet by ity of disintegrat 00:00: mouth [place] ing tablet 00 every 8 Medica l (eight) Branch hours as needed for Nausea and Vomiting (N/V) for up to 15 doses. ondansetron 2020-0 Yes [id number] 4mg Take 1 Univers 4 mg 3-06 tablet by ity of disintegrat 00:00: mouth [place] ing tablet 00 every 8 Medica l (eight) Branch hours as needed for Nausea and Vomiting (N/V) for up to 15 doses. ondansetron 2020-0 Yes [id number] 4mg Take 1 Univers 4 mg 3-06 tablet by ity of disintegrat 00:00: mouth [place] ing tablet 00 every 8 Medica l (eight) Branch hours as needed for Nausea and Vomiting (N/V) for up to 15 doses. ondansetron 2020-0 Yes [id number] 4mg Take 1 Univers 4 mg 3-06 tablet by ity of disintegrat 00:00: mouth [place] ing tablet 00 every 8 Medica l (eight) Branch hours as needed for Nausea and Vomiting (N/V) for up to 15 doses. ondansetron 2020-0 Yes [id number] 4mg Take 1 Univers 4 mg 3-06 tablet by ity of disintegrat 00:00: mouth [place] ing tablet 00 every 8 Medica l (eight) Branch hours as needed for Nausea and Vomiting (N/V) for up to 15 doses. ondansetron 2020-0 Yes [id number] 4mg Take 1 Univers 4 mg 3-06 tablet by ity of disintegrat 00:00: mouth [place] ing tablet 00 every 8 Medica l (eight) Branch hours as needed for Nausea and Vomiting (N/V) for up to 15 doses. ondansetron 2020-0 Yes [id number] 4mg Take 1 Univers 4 mg 3-06 tablet by ity of disintegrat 00:00: mouth [place] ing tablet 00 every 8 Medica l (eight) Branch hours as needed for Nausea and Vomiting (N/V) for up to 15 doses. ondansetron 2020-0 Yes [id number] 4mg Take 1 Univers 4 mg 3-06 tablet by ity of disintegrat 00:00: mouth [place] ing tablet 00 every 8 Medica l (eight) Branch hours as needed for Nausea and Vomiting (N/V) for up to 15 doses. ondansetron 2020-0 Yes [id number] 4mg Take 1 Univers 4 mg 3-06 tablet by ity of disintegrat 00:00: mouth [place] ing tablet 00 every 8 Medica l (eight) Branch hours as needed for Nausea and Vomiting (N/V) for up to 15 doses. ondansetron 2020-0 Yes [id number] 4mg Take 1 Univers 4 mg 3-06 tablet by ity of disintegrat 00:00: mouth [place] ing tablet 00 every 8 Medica l (eight) Branch hours as needed for Nausea and Vomiting (N/V) for up to 15 doses. ondansetron 2020-0 Yes [id number] 4mg Take 1 Univers 4 mg 3-06 tablet by ity of disintegrat 00:00: mouth [place] ing tablet 00 every 8 Medica l (eight) Branch hours as needed for Nausea and Vomiting (N/V) for up to 15 doses. ondansetron 2020-0 Yes [id number] 4mg Take 1 Univers 4 mg 3-06 tablet by ity of disintegrat 00:00: mouth [place] ing tablet 00 every 8 Medica l (eight) Branch hours as needed for Nausea and Vomiting (N/V) for up to 15 doses. ondansetron 2020-0 Yes [id number] 4mg Take 1 Univers 4 mg 3-06 tablet by ity of disintegrat 00:00: mouth [place] ing tablet 00 every 8 Medica l (eight) Branch hours as needed for Nausea and Vomiting (N/V) for up to 15 doses. ondansetron 2020-0 Yes [id number] 4mg Take 1 Univers 4 mg 3-06 tablet by ity of disintegrat 00:00: mouth [place] ing tablet 00 every 8 Medica l (eight) Branch hours as needed for Nausea and Vomiting (N/V) for up to 15 doses. ondansetron 2020-0 Yes [id number] 4mg Take 1 Univers 4 mg 3-06 tablet by ity of disintegrat 00:00: mouth [place] ing tablet 00 every 8 Medica l (eight) Branch hours as needed for Nausea and Vomiting (N/V) for up to 15 doses. ondansetron 2020-0 Yes [id number] 4mg Take 1 Univers 4 mg 3-06 tablet by ity of disintegrat 00:00: mouth [place] ing tablet 00 every 8 Medica l (eight) Branch hours as needed for Nausea and Vomiting (N/V) for up to 15 doses. ondansetron 2020-0 Yes [id number] 4mg Take 1 Univers 4 mg 3-06 tablet by ity of disintegrat 00:00: mouth [place] ing tablet 00 every 8 Medica l (eight) Branch hours as needed for Nausea and Vomiting (N/V) for up to 15 doses. ondansetron 2020-0 Yes [id number] 4mg Take 1 Univers 4 mg 3-06 tablet by ity of disintegrat 00:00: mouth [place] ing tablet 00 every 8 Medica l (eight) Branch hours as needed for Nausea and Vomiting (N/V) for up to 15 doses. ondansetron 2020-0 Yes [id number] 4mg Take 1 Univers 4 mg 3-06 tablet by ity of disintegrat 00:00: mouth [place] ing tablet 00 every 8 Medica l (eight) Branch hours as needed for Nausea and Vomiting (N/V) for up to 15 doses. ondansetron 2020-0 Yes [id number] 4mg Take 1 Univers 4 mg 3-06 tablet by ity of disintegrat 00:00: mouth [place] ing tablet 00 every 8 Medica l (eight) Branch hours as needed for Nausea and Vomiting (N/V) for up to 15 doses. ondansetron 2020-0 Yes [id number] 4mg Take 1 [facility] 4 mg 3-06 tablet by ity of disintegrat 00:00: mouth [place] ing tablet 00 every 8 Medica l (eight) Branch hours as needed for Nausea and Vomiting (N/V) for up to 15 doses. ondansetron 2020-0 1- No [id number] 4mg Take 1 Univers 4 mg 3-06 [...] TABLET ity of Tablet Tablet 00:00: TWICE [place] 00 DAILY. Physici ans Furosemide Furosemide 2019-0 Yes M.A. Q0.5D TAKE 1 [facility] 40 MG Oral 40 MG Oral 3-05 TABLET i ty of Tablet Tablet 00:00: TWICE [place] 00 DAILY. Physici ans Nicotine 14 Nicotine 14 2019-0 Yes M.A. QD APPLY 1 Univers MG/24HR MG/24HR 3-05 PATCH ity of Transdermal Transdermal 00:00: DAILY [place] Patch 24 Patch 24 00 DIRECTED. Ph [...] [place] mg 00 First dose Medical on [facility] 09/15/19 at 1700, Until Discontinu ed, Routine metoprolol 2020-0 Yes 50mg Take 50 mg U nivers succinate 3-03 by mouth ity of 50 mg CSpX 20:03: daily. [address] spironolact 2020-0 Yes 25mg Take 25 mg Univers one 25 mg 3-03 by mouth ity of tablet 20:03: daily. [address] insulin NPH 2020-0 Yes 18U inject 18 U nivers human 3-03 Units ity of isophane 20:03: [place] (HUMULIN N 35 skin 2 Medical NPH INSULIN (two) Branch [facility]) times daily. metoprolol 2020-0 Yes 50mg Take 50 mg U nivers succinate 3-03 by mouth ity of 50 mg CSpX 20:03: daily. [address] spironolact 2020-0 Yes 25mg Take 25 mg Univers one 25 mg 3-03 by mouth ity of tablet 20:03: daily. [address] insulin NPH 2020-0 Yes 18U inject 18 U nivers human 3-03 Units ity of isophane 20:03: under the [place] (HUMULIN N 35 skin 2 Medical NPH INSULIN (two) Branch [place] [place]) times daily. metoprolol 2020-0 Yes 50mg Take 50 mg U nivers succinate 3-03 by mouth ity of 50 mg CSpX 20:03: daily. [address] spironolact 2020-0 Yes 25mg Take 25 mg Univers one 25 mg 3-03 by mouth ity of tablet 20:03: daily. [address] insulin NPH 2020-0 Yes 18U inject 18 U nivers human 3-03 Units ity of isophane 20:03: under the [place] (HUMULIN N 35 skin 2 Medical NPH INSULIN (two) Branch [place]) times daily. metoprolol 2020-0 Yes 50mg Take 50 mg U nivers succinate 3-03 by mouth ity of 50 mg CSpX 20:03: daily. [address] spironolact 2020-0 Yes 25mg Take 25 mg [facility] one 25 mg 3-03 by mouth ity of tablet 20:03: daily. [address] insulin NPH 2020-0 Yes 18U inject 18 U nivers human 3-03 Units ity of isophane 20:03: [place] the [place] (HUMULIN N 35 skin 2 Medical NPH INSULIN (two) Branch [place]) times daily. furosemide 2020-0 2020- No 40mg Take 40 mg Univers 40 mg 3-03 03-03 by mouth ity of tablet 18:07: 00:00 daily. [place] 59 :00 [facility] Branch doxycycline 2020-0 Yes [id number] 100mg Take 1 Univers hyclate 100 3-03 9103 capsule by it y of mg capsule 00:00: mouth [place] 00 every 12 Medical (twelve) Branch hours. furosemide 2020-0 Yes [id number] 40mg Take 1 [facility] 40 mg 3-03 9103 tablet by ity of tablet 00:00: mouth [place] 00 every Medical morning Branch and evening. lisinopril 2020-0 Yes [id number] 5mg Take 1 Univers 5 mg tablet 3-03 9103 tablet by ity of 00:00: mouth 2 [place] (two) Medical times Branch daily. amoxicillin 2020-0 Yes [id number] 1{tbl} Take 1 Univers -clavulanat 3-03 9103 tablet by ity of e 00:00: mouth 2 [place] (AUGMENTIN) 00 (two) Medical 875-125 mg times Branch per tablet daily. doxycycline 2020-0 Yes [id number] 100mg Take 1 Univers hyclate 100 3-03 9103 capsule by it y of mg capsule 00:00: mouth [place] 00 every 12 Medical (twelve) Branch hours. furosemide 2020-0 Yes [id number] 40mg Take 1 [facility] 40 mg 3-03 9103 tablet by ity of tablet 00:00: mouth [place] 00 every Medical morning Branch and evening. lisinopril 2020-0 Yes [id number] 5mg Take 1 Univers 5 mg tablet 3-03 9103 tablet by ity of 00:00: mouth 2 (two) Medical times Branch daily. amoxicillin 2020-0 Yes [id number] 1{tbl} Take 1 [facility] -clavulanat 3-03 9103 tablet by ity of e 00:00: mouth 2 [place] (AUGMENTIN) 00 (two) Medical 875-125 mg times Branch per tablet daily. doxycycline 2020-0 Yes [id number] 100mg Take 1 [facility] hyclate 100 3-03 9103 capsule by it y of mg capsule 00:00: mouth [place] 00 every 12 Medical (twelve) Branch hours. furosemide 2020-0 Yes [id number] 40mg Take 1 [facility] 40 mg 3-03 9103 tablet by ity of tablet 00:00: mouth [place] 00 every Medical morning Branch and evening. lisinopril 2020-0 Yes [id number] 5mg Take 1 [facility] 5 mg tablet 3-03 9103 tablet by ity of 00:00: mouth 2 [place] 00 (two) Medical times Branch daily. amoxicillin 2020-0 Yes [id number] 1{tbl} Take 1 [facility] -clavulanat 3-03 9103 tablet by ity of e 00:00: mouth 2 [place] (AUGMENTIN) 00 (two) Medical 875-125 mg times Branch per tablet daily. doxycycline 2020-0 Yes [id number] 100mg Take 1 [facility] hyclate 100 3-03 9103 capsule by it y of mg capsule 00:00: mouth [place] 00 every 12 Medical (twelve) Branch hours. furosemide 2020-0 Yes [id number] 40mg Take 1 [facility] 40 mg 3-03 9103 tablet by ity of tablet 00:00: mouth [place] 00 every Medical morning Branch and evening. lisinopril 2020-0 Yes [id number] 5mg Take 1 [facility] 5 mg tablet 3-03 9103 tablet by ity of 00:00: mouth 2 [place] 00 (two) Medical times Branch daily. amoxicillin 2020-0 Yes [id number] 1{tbl} Take 1 [facility] -clavulanat 3-03 9103 tablet by ity of e 00:00: mouth 2 [place] (AUGMENTIN) 00 (two) Medical 875-125 mg times Branch per tablet daily. doxycycline 2020-0 Yes [id number] 100mg Take 1 [facility] hyclate 100 3-03 9103 capsule by it y of mg capsule 00:00: mouth [place] 00 every 12 Medical (twelve) Branch hours. furosemide 2020-0 Yes [id number] 40mg Take 1 [facility] 40 mg 3-03 9103 tablet by ity of tablet 00:00: mouth [place] 00 every Medical morning Branch and evening. lisinopril 2020-0 Yes [id number] 5mg Take 1 [facility] 5 mg tablet 3-03 9103 tablet by ity of 00:00: mouth 2 [place] 00 (two) Medical times Branch daily. amoxicillin 2020-0 Yes [id number] 1{tbl} Take 1 [facility] -clavulanat 3-03 9103 tablet by ity of e 00:00: mouth 2 [place] (AUGMENTIN) 00 (two) Medical 875-125 mg times Branch per tablet daily. doxycycline 2020-0 Yes [id number] 100mg Take 1 [facility] hyclate 100 3-03 9103 capsule by it y of mg capsule 00:00: mouth [place] 00 every 12 Medical (twelve) Branch hours. furosemide 2020-0 Yes [id number] 40mg Take 1 [facility] 40 mg 3-03 9103 tablet by ity of tablet 00:00: mouth [place] 00 every Medical morning Branch and evening. furosemide 2020-0 Yes [id number] 40mg Take 1 [facility] 40 mg 3-03 9103 tablet by ity of tablet 00:00: mouth [place] 00 every Medical morning Branch and evening. furosemide 2020-0 Yes [id number] 40mg Take 1 [facility] 40 mg 3-03 9103 tablet by ity of tablet 00:00: mouth [place] 00 every Medical morning Branch and evening. lisinopril 2020-0 Yes [id number] 5mg Take 1 [facility] 5 mg tablet 3-03 9103 tablet by ity of 00:00: mouth 2 [place] 00 (two) Medical times Branch daily. amoxicillin 2020-0 Yes [id number] 1{tbl} Take 1 [facility] -clavulanat 3-03 9103 tablet by ity of e 00:00: mouth 2 [place] (AUGMENTIN) 00 (two) Medical 875-125 mg times Branch per tablet daily. doxycycline 2020-0 Yes [id number] 100mg Take 1 [facility] hyclate 100 3-03 9103 capsule by it y of mg capsule 00:00: mouth [place] 00 every 12 Medical (twelve) Branch hours. furosemide 2020-0 Yes [id number] 40mg Take 1 [facility] 40 mg 3-03 9103 tablet by ity of tablet 00:00: mouth [place] 00 every Medical morning Branch and evening. lisinopril 2020-0 Yes [id number] 5mg Take 1 [facility] 5 mg tablet 3-03 9103 tablet by ity of 00:00: mouth 2 [place] 00 (two) Medical times Branch daily. amoxicillin 2020-0 Yes [id number] 1{tbl} Take 1 [facility] -clavulanat 3-03 9103 tablet by ity of e 00:00: mouth 2 [place] (AUGMENTIN) 00 (two) Medical 875-125 mg times Branch per tablet daily. doxycycline 2020-0 Yes [id number] 100mg Take 1 [facility] hyclate 100 3-03 9103 capsule by it y of mg capsule 00:00: mouth [place] 00 every 12 Medical (twelve) Branch hours. furosemide 2020-0 Yes [id number] 40mg Take 1 [facility] 40 mg 3-03 9103 tablet by ity of tablet 00:00: mouth [place] 00 every Medical morning Branch and evening. lisinopril 2020-0 Yes [id number] 5mg Take 1 [facility] 5 mg tablet 3-03 9103 tablet by ity of 00:00: mouth 2 [place] 00 (two) Medical times Branch daily. amoxicillin 2020-0 Yes [id number] 1{tbl} Take 1 [facility] -clavulanat 09-14 9103 tablet by ity of e 00:00: mouth 2 [place] (AUGMENTIN) 00 (two) Medical 875-125 mg times Branch per tablet daily. furosemide 2019- 2020- No [id number] 40mg Take 1 [facility] 40 mg 09-14 9103 tablet by ity of tablet 00:00: 00:00 mouth [place] 00 :00 every Medical morning Branch and evening. furosemide 2019- 2020- No [id number] 40mg Take 1 [facility] 40 mg 09-14 9103 tablet by ity of tablet 00:00: 00:00 mouth [place] 00 :00 every Medical morning Branch and evening. lisinopril 2020- No [id number] 5mg Take 1 [facility] 5 mg tablet 09-14 9103 tablet by it y of 00:00: 00:00 mouth 2 [place] 00 :00 (two) Medical times Branch daily. amoxicillin 2019-2019- No [id number] 1{tbl} Take 1 [facility] -clavulanat 09-14 9103 tablet by it y of e 00:00: 00:00 mouth 2 [place] (AUGMENTIN) 00 :00 (two) Medical 875-125 mg times Branch per tablet daily. doxycycline 2019- No [id number] 100mg Take 1 [facility] hyclate 100 09-14 9103 capsule by i ty of mg capsule 00:00: 00:00 mouth [place] 00 :00 every 12 Medical (twelve) Branch hours. ceFEPIme Yes 1000mg 1,000 mg, Un michael (MAXIPIME) 09-13 IV ity of 1,000 mg in 17:45: Piggyback, [place] NaCl 0.9% 00 Q12H ABX, Medic al (NS) 50 mL First dose Bra nyh MINI-BAG on Sat09/14/19 at 1145, Until Discontinu [...] 25 Q6HPRN, Medical 25 mcg Starting Branch [place] 09/13/19 at 2050, Until Discontinu ed, Routine, Pain (scale 7-10) azithromyci 2020-0 Yes 500mg 500 mg, Un michael n 3- Oral, ity of (ZITHROMAX) 15:00: DAILY, [place] 500 00 First dose Med ical mg on [facility] 09/13/19 at 0900, Until Discontinu ed, KATHY
Re ason for Anti-Infec tive: Empiric Therapy for Suspected Infection< br>Empiric Therapy Site: Respirator y
Durat ion of therapy: 72 hours enoxaparin 2020-0 Yes 40mg 40 mg, Unive rs (LOVENOX) 09-12 Subcutaneo ity of injection 15:00: us, DAILY, [place] 40 mg 00 First dose Medical on [facility] 09/13/19 at 0900, Until Discontinu ed, Routine insulin NPH 2020-0 Yes 18U 18 Units, U nivers (HUMULIN N) 09-12 Subcutaneo it y of injection 15:00: us, [place] 18 Units 00 QAM+PM, Medical First dose Branch on [place] 09/13/19 at 0900, Until Discontinu ed clopidogreL 2020-0 Yes 75mg 75 mg, Univ ers (PLAVIX) 09-12 Oral, ity of tablet 75 15:00: DAILY, [place] mg 00 First dose Medical on [facility] 09/13/19 at 0900, Until Discontinu ed, Routine aspirin 2020-0 Yes 81mg 81 mg, Univers chewable 09-12 Oral, ity of tablet 81 15:00: DAILY, [place] mg 00 First dose Medical on [facility] 09/13/19 at 0900, Until Discontinu ed, Routine lisinopril 2020-0 Yes 5mg 5 mg, Univer s (PRINIVIL,Z 09-12 Oral, BID, it y of ESTRIL) 14:00: [place] tablet 5 mg 00 on [place] Medica l 09/13/19 at Branch 0800, Until [...] First dose [place] mg 00 on [facility] Medical 09/12/19 at Branch 2100, Until Discontinu ed, Routine Sliding 2020-0 Yes Subcutaneo Univ ers Scale 3 us, TID ity of Insulin - 03:00: MEALS+HS, You as Lispro 00 First dose Medical (HumaLOG) + on [facility] Branch [facility]s[place] 09/12/19 at Testing 2100, Until Discontinu ed, Routine benzonatate 2020-0 Yes 100mg 100 mg, Un michael (TESSALON 09-12 Oral, ity of PERLES) 02:26: Q6HPRN, [place] capsule 100 20 Starting Medi lizzy mg Sat Branch 09/12/19 at 2026, Until Discontinu ed, Routine, Cough ipratropium 2020-0 Yes .5mg 0.5 mg, Uni vers (ATROVENT) 09-12 Inhalation ity of 0.02 % 02:00: , QID, [place] nebulizer 00 First dose Medi lizzy solution on Sat Branch 0.5 mg 09/12/19 at 2000, Until Discontinu ed, Routine docusate 2020-0 Yes 100mg 100 mg, Unive rs (COLACE) 09-12 Oral, BID, ity o f capsule 100 02:00: First dose [place] mg 00 on [facility] Medical 09/12/19 at Branch 2000, Until Discontinu ed, Routine ondansetron 2020-0 Yes 4mg 4 mg, Slow Univers (ZOFRAN 09-12 IV Push, ity of (PF)) 00:11: Q6HPRN, [place] injection 4 27 Starting Medi lizzy mg Sat [place] 09/12/19 at 1811, Until Discontinu ed, Routine, Nausea and Vomiting (N/V) acetaminoph 2020-0 Yes 650mg 650 mg, Un michael en 09-12 Oral, ity of (TYLENOL) 00:11: Q6HPRN, [place] tablet 650 19 Starting Medic al mg [facility] Branch 09/12/19 at 1811, Until [...] of 1,000 mg in 17:00: 16:57 [place], [place] NaCl 0.9% 00 :00 ONCE, 1 Medical [...] ity of 50 mg CSpX 20:31: daily. [address] spironolact 2020-0 Yes 25mg Take 25 mg Univers one 25 mg 2-24 by mouth ity of tablet 20:31: daily. [address] furosemide 2020-0 Yes 40mg Take 40 mg U nivers 40 mg 2-24 by mouth ity of tablet 20:31: daily. [address] insulin NPH 2019-0 Yes 18U inject 18 U nivers human 2-24 Units ity of isophane 20:31: [place] (HUMULIN N 45 skin 2 Medical NPH INSULIN (two) Branch [place]) times daily. metoprolol 2020-0 Yes 50mg Take 50 mg U nivers succinate 2-24 by mouth ity of 50 mg CSpX 20:31: daily. [address] spironolact 2020-0 Yes 25mg Take 25 mg Univers one 25 mg 2-24 by mouth ity of tablet 20:31: daily. [address] furosemide 2020-0 Yes 40mg Take 40 mg U nivers 40 mg 2-24 by mouth ity of tablet 20:31: daily. [address] insulin NPH 2020-0 Yes 18U inject 18 U nivers human 2-24 Units ity of isophane 20:31: [place] the [place] (HUMULIN N 45 skin 2 Medical NPH INSULIN (two) Branch KWIKPEN SC) times daily. metoprolol 2020-0 Yes 50mg Take 50 mg U nivers succinate 2-24 by mouth ity of 50 mg CSpX 20:31: daily. [address] spironolact 2020-0 Yes 25mg Take 25 mg Univers one 25 mg 2-24 by mouth ity of tablet 20:31: daily. [address] furosemide 2020-0 Yes 40mg Take 40 mg U nivers 40 mg 2-24 by mouth ity of tablet 20:31: daily. [address] insulin NPH 2020-0 Yes 18U inject 18 U nivers human 2-24 Units ity of isophane 20:31: [place] the [place] (HUMULIN N 45 skin 2 Medical NPH INSULIN (two) Branch KWIKPEN NC) times daily. clopidogreL 2020-0 Yes [id number] 75mg Take 1 [facility] 75 mg 2-24 tablet by ity of tablet 00:00: mouth [place] 00 daily. [facility] Branch nicotine 14 2020-0 Yes [id number] 1{patch Apply 1 Univers mg/24 hr 2-24 } Patch to ity of patch 00:00: area(s) [place] 00 every 24 Medical (twenty-fo Branch ur) hours. clopidogreL 2020-0 Yes [id number] 75mg Take 1 [facility] 75 mg 2-24 tablet by ity of tablet 00:00: mouth [place] 00 daily. [facility] Branch nicotine 14 2020-0 Yes [id number] 1{patch Apply 1 [facility] mg/24 hr 2-24 } Patch to ity of patch 00:00: area(s) [place] 00 every 24 Medical (twenty-fo Branch ur) hours. clopidogreL 2020-0 Yes [id number] 75mg Take 1 [facility] 75 mg 2-24 tablet by ity of tablet 00:00: mouth [place] 00 daily. Medical Branch nicotine 14 2020-0 Yes [id number] 1{patch Apply 1 [facility] mg/24 hr 2-24 } Patch to ity of patch 00:00: area(s) [place] 00 every 24 Medical (twenty-fo Branch ur) hours. clopidogreL 2020-0 Yes [id number] 75mg Take 1 [facility] 75 mg 2-24 tablet by ity of tablet 00:00: mouth [place] 00 daily. Medical Branch nicotine 14 2020-0 Yes [id number] 1{patch Apply 1 [facility] mg/24 hr 2-24 } Patch to ity of patch 00:00: [facility](s) [place] 00 every 24 Medical (twenty-fo Branch ur) hours. clopidogreL 2020-0 Yes [id number] 75mg Take 1 [facility] 75 mg 2-24 tablet by ity of tablet 00:00: mouth [place] 00 daily. Medical Branch nicotine 14 2020-0 Yes [id number] 1{patch Apply 1 [facility] mg/24 hr 2-24 } Patch to ity of patch 00:00: area(s) [place] 00 every 24 Medical (twenty-fo Branch ur) hours. clopidogreL 2020-0 Yes [id number] 75mg Take 1 [facility] 75 mg 2-24 tablet by ity of tablet 00:00: mouth [place] 00 daily. Medical Branch nicotine 14 2020-0 Yes [id number] 1{patch Apply 1 [facility] mg/24 hr 2-24 } Patch to ity of patch 00:00: area(s) [place] 00 every 24 Medical (twenty-fo Branch ur) hours. clopidogreL 2020-0 Yes [id number] 75mg Take 1 [facility] 75 mg 2-24 tablet by ity of tablet 00:00: mouth [place] 00 daily. Medical Branch nicotine 14 2020-0 Yes [id number] 1{patch Apply 1 [facility] mg/24 hr 2-24 } Patch to ity of patch 00:00: area(s) [place] 00 every 24 Medical (twenty-fo Branch ur) hours. clopidogreL 2020-0 Yes [id number] 75mg Take 1 [facility] 75 mg 2-24 tablet by ity of tablet 00:00: mouth [place] 00 daily. Medical Branch nicotine 14 2020-0 Yes [id number] 1{patch Apply 1 [facility] mg/24 hr 2-24 } Patch to ity of patch 00:00: area(s) [place] 00 every 24 Medical (twenty-fo Branch ur) hours. nicotine 14 2020-0 Yes [id number] 1{patch Apply 1 [facility] mg/24 hr 2-24 } Patch to ity of patch 00:00: area(s) [place] 00 every 24 Medical (twenty-fo Branch ur) hours. nicotine 14 2020-0 Yes [id number] 1{patch Apply 1 [facility] mg/24 hr 2-24 } Patch to ity of patch 00:00: area(s) [place] 00 every 24 Medical (twenty-fo Branch ur) hours. nicotine 14 2020-0 Yes [id number] 1{patch Apply 1 [facility] mg/24 hr 2-24 } Patch to ity of patch 00:00: area(s) [place] 00 every 24 Medical (twenty-fo Branch ur) hours. nicotine 14 2020-0 Yes [id number] 1{patch Apply 1 [facility] mg/24 hr 2-24 } Patch to ity of patch 00:00: area(s) [place] 00 every 24 Medical (twenty-fo Branch ur) hours. nicotine 14 2020-0 Yes [id number] 1{patch Apply 1 [facility] mg/24 hr 2-24 } Patch to ity of patch 00:00: area(s) [place] 00 every 24 Medical (twenty-fo Branch ur) hours. nicotine 14 2020-0 Yes [id number] 1{patch Apply 1 [facility] mg/24 hr 2-24 } Patch to ity of patch 00:00: area(s) [place] 00 every 24 Medical (twenty-fo Branch ur) hours. nicotine 14 2020-0 Yes [id number] 1{patch Apply 1 [facility] mg/24 hr 2-24 } Patch to ity of patch 00:00: area(s) [place] 00 every 24 Medical (twenty-fo Branch ur) hours. nicotine 14 2020-0 Yes [id number] 1{patch Apply 1 Univers mg/24 hr 2-24 } Patch to ity of patch 00:00: area(s) [place] 00 every 24 Medical (twenty-fo Branch ur) hours. nicotine 14 2020-0 Yes [id number] 1{patch Apply 1 [facility] mg/24 hr 2-24 } Patch to ity of patch 00:00: area(s) [place] 00 every 24 Medical (twenty-fo Branch ur) hours. nicotine 14 2020-0 Yes [id number] 1{patch Apply 1 Univers mg/24 hr 2-24 } Patch to ity of patch 00:00: area(s) [place] 00 every 24 Medical (twenty-fo Branch ur) hours. nicotine 14 2020-0 Yes [id number] 1{patch Apply 1 Univers mg/24 hr 2-24 } Patch to ity of patch 00:00: area(s) [place] 00 every 24 Medical (twenty-fo Branch ur) hours. nicotine 14 2020-0 Yes [id number] 1{patch Apply 1 Univers mg/24 hr 2-24 } Patch to ity of patch 00:00: area(s) [place] 00 every 24 Medical (twenty-fo Branch ur) hours. nicotine 14 2020-0 Yes [id number] 1{patch Apply 1 Univers mg/24 hr 2-24 } Patch to ity of patch 00:00: [facility](s) [place] 00 every 24 Medical (twenty-fo Branch ur) hours. nicotine 14 2020-0 Yes [id number] 1{patch Apply 1 Univers mg/24 hr 2-24 } Patch to ity of patch 00:00: area(s) [place] 00 every 24 Medical (twenty-fo Branch ur) hours. nicotine 14 2020-0 Yes [id number] 1{patch Apply 1 Univers mg/24 hr 2-24 } Patch to ity of patch 00:00: area(s) [place] 00 every 24 Medical (twenty-fo Branch ur) hours. nicotine 14 2020-0 Yes [id number] 1{patch Apply 1 Univers mg/24 hr 2-24 } Patch to ity of patch 00:00: area(s) [place] 00 every 24 Medical (twenty-fo Branch ur) hours. nicotine 14 2020-0 Yes [id number] 1{patch Apply 1 Univers mg/24 hr 2-24 } Patch to ity of patch 00:00: area(s) [place] 00 every 24 Medical (twenty-fo Branch ur) hours. nicotine 14 2020-0 Yes [id number] 1{patch Apply 1 Univers mg/24 hr 2-24 } Patch to ity of patch 00:00: [facility](s) [place] 00 every 24 Medical (twenty-fo Branch ur) hours. nicotine 14 2020-0 Yes [id number] 1{patch Apply 1 Univers mg/24 hr 2-24 } Patch to ity of patch 00:00: area(s) [place] 00 every 24 Medical (twenty-fo Branch ur) hours. nicotine 14 2020-0 Yes [id number] 1{patch Apply 1 Univers mg/24 hr 2-24 } Patch to ity of patch 00:00: area(s) [place] 00 every 24 Medical (twenty-fo Branch ur) hours. nicotine 14 2020-0 Yes [id number] 1{patch Apply 1 Univers mg/24 hr 2-24 } Patch to ity of patch 00:00: area(s) [place] 00 every 24 Medical (twenty-fo Branch ur) hours. nicotine 14 2020-0 Yes [id number] 1{patch Apply 1 Univers mg/24 hr 2-24 } Patch to ity of patch 00:00: area(s) [place] 00 every 24 Medical (twenty-fo Branch ur) hours. nicotine 14 2020-0 Yes [id number] 1{patch Apply 1 Univers mg/24 hr 2-24 } Patch to ity of patch 00:00: [facility](s) [place] 00 every 24 Medical (twenty-fo Branch ur) hours. nicotine 14 2020-0 Yes [id number] 1{patch Apply 1 Univers mg/24 hr 2-24 } Patch to ity of patch 00:00: area(s) [place] 00 every 24 Medical (twenty-fo Branch ur) hours. nicotine 14 2020-0 Yes [id number] 1{patch Apply 1 Univers mg/24 hr 2-24 } Patch to ity of patch 00:00: area(s) [place] 00 every 24 Medical (twenty-fo Branch ur) hours. nicotine 14 2020-0 Yes [id number] 1{patch Apply 1 Univers mg/24 hr 2-24 } Patch to ity of patch 00:00: area(s) [place] 00 every 24 Medical (twenty-fo Branch ur) hours. nicotine 14 2020-0 Yes [id number] 1{patch Apply 1 Univers mg/24 hr 2-24 } Patch to ity of patch 00:00: area(s) [place] 00 every 24 Medical (twenty-fo Branch ur) hours. nicotine 14 2020-0 Yes [id number] 1{patch Apply 1 Univers mg/24 hr 2-24 } Patch to ity of patch 00:00: area(s) [place] 00 every 24 Medical (twenty-fo Branch ur) hours. nicotine 14 2020-0 Yes [id number] 1{patch Apply 1 Univers mg/24 hr 2-24 } Patch to ity of patch 00:00: area(s) [place] 00 every 24 Medical (twenty-fo Branch ur) hours. nicotine 14 2020-0 Yes [id number] 1{patch Apply 1 Univers mg/24 hr 2-24 } Patch to ity of patch 00:00: [facility]() [place] 00 every 24 Medical (twenty-fo Branch ur) hours. nicotine 14 2020-0 Yes [id number] 1{patch Apply 1 Univers mg/24 hr 2-24 } Patch to ity of patch 00:00: [facility]() [place] 00 every 24 Medical (twenty-fo Branch ur) hours. nicotine 14 2020-0 Yes [id number] 1{patch Apply 1 Univers mg/24 hr 2-24 } Patch to ity of patch 00:00: [facility]() [place] 00 every 24 Medical (twenty-fo Branch ur) hours. nicotine 14 2020-0 Yes [id number] 1{patch Apply 1 [facility] mg/24 hr 2-24 } Patch to ity of patch 00:00: [facility] 00 every 24 Medical (twenty-fo Branch ur) hours. nicotine 14 2020-0 Yes [id number] 1{patch Apply 1 Univers mg/24 hr 2-24 } Patch to ity of patch 00:00: [facility]() [place] 00 every 24 Medical (twenty-fo Branch ur) hours. nicotine 14 2020-0 Yes [id number] 1{patch Apply 1 Univers mg/24 hr 2-24 } Patch to ity of patch 00:00: [facility]() [place] 00 every 24 Medical (twenty-fo Branch ur) hours. nicotine 14 2020-0 Yes [id number] 1{patch Apply 1 Univers mg/24 hr 2-24 } Patch to ity of patch 00:00: [facility]() [place] 00 every 24 Medical (twenty-fo Branch ur) hours. nicotine 14 2020-0 Yes [id number] 1{patch Apply 1 [facility] mg/24 hr 2-24 } Patch to ity of patch 00:00: [facility]() [place] 00 every 24 Medical (twenty-fo Branch ur) hours. clopidogreL 2020-0 Yes [id number] 75mg Take 1 Univers 75 mg 2-24 tablet by ity of tablet 00:00: mouth [place] 00 daily. Medical Branch nicotine 14 2020-0 Yes [id number] 1{patch Apply 1 [facility] mg/24 hr 2-24 } Patch to ity of patch 00:00: [facility]() [place] 00 every 24 Medical (twenty-fo Branch ur) hours. clopidogreL 2020-0 Yes [id number] 75mg Take 1 Univers 75 mg 2-24 tablet by ity of tablet 00:00: mouth [place] 00 daily. Medical Branch nicotine 14 2020-0 Yes [id number] 1{patch Apply 1 [facility] mg/24 hr 2-24 } Patch to ity of patch 00:00: [facility]() [place] 00 every 24 Medical (twenty-fo Branch ur) hours. clopidogreL 2020-0 Yes [id number] 75mg Take 1 [facility] 75 mg 2-24 tablet by ity of tablet 00:00: mouth [place] 00 daily. Medical Branch nicotine 14 2020-0 Yes [id number] 1{patch Apply 1 [facility] mg/24 hr 2-24 } Patch to ity of patch 00:00: [facility]() [place] 00 every 24 Medical (twenty-fo Branch ur) hours. clopidogreL 2020-0 Yes [id number] 75mg Take 1 [facility] 75 mg 2-24 tablet by ity of tablet 00:00: mouth [place] 00 daily. Medical Branch nicotine 14 2020-0 Yes [id number] 1{patch Apply 1 [facility] mg/24 hr 2-24 } Patch to ity of patch 00:00: [facility]() [place] 00 every 24 Medical (twenty-fo Branch ur) hours. clopidogreL 2020-0 Yes [id number] 75mg Take 1 Univers 75 mg 2-24 tablet by ity of tablet 00:00: mouth [place] 00 daily. Medical Branch nicotine 14 2020-0 Yes [id number] 1{patch Apply 1 [facility] mg/24 hr 2-24 } Patch to ity of patch 00:00: [facility]() [place] 00 every 24 Medical ([facility] Branch ur) hours. nicotine 14 2020-0 2020- No [id number] 1{patch Apply 1 Univers mg/24 hr 2-24 04-10 } Patch to ity of patch 00:00: 00:00 [facility]() [place] 00 :00 every 24 Medical (twentyfo Branch ur) hours. clopidogreL 2020-0 2020- No [id number] 75mg Take 1 Univers 75 mg 2-24 04-06 tablet by ity of tablet 00:00: 00:00 mouth [place] 00 :00 daily. Medical Branch clopidogreL 2020-0 2020- No [id number] 75mg Take 1 Univers 75 mg 2-24 04-06 tablet by ity of tablet 00:00: 00:00 mouth [place] 00 :00 daily. [facility] Branch insulin 2020-0 2020- No 20U inject 20 Univ ers glargine,hu - 02-23 Units ity of mLatesharec.anlog 15:33: 00:00 under the [place] (LANTUS 20 :00 skin 2 Medical U-100 (two) [place] INSULIN SC) times daily. insulin 2020-0 2020- No inject Univers aspart 09-06- under the ity of injection 15:33: 00:00 skin [place] 20 :00 before Medical meals. Branch HYDROcodone 2020-0 Yes 1{tbl} 1 tablet, Univers -acetaminop - Oral, ity of hen (NORCO 15:04: Q6HPRN, [place] 5) 5-325 mg 54 Starting Medi lizzy tablet 1 [facility] tablet 09/06/19 at 0904, Until Discontinu ed, Routine, Pain (scale 4-6) insulin 2019-0 Yes 40U 40 Units, Unive rs glargine -23 Subcutaneo ity o f (LANTUS 14:06: us, Q24H, [place] U-100) 00 First dose Medical injection on [facility] 40 Units 09/06/19 at 0815, Until Discontinu ed SERTraline 2019-0 Yes 50mg 50 mg, Unive rs (ZOLOFT) 2-23 Oral, QHS, ity o f tablet 50 03:00: First dose [place] mg 00 on [facility] 09/05/19 at Branch 2100, Until Discontinu ed, Routine docusate 2019-0 Yes 100mg 100 mg, Unive rs (COLACE) 2-23 Oral, BID, ity o f capsule 100 02:00: First dose [place] mg 00 on [facility] 09/05/19 at Branch 2000, Until Discontinu ed, Routine atorvastati 2020-0 Yes [id number] 80mg Take 1 Univers n 80 mg 2-23 tablet by ity of tablet 00:00: mouth at [place] 00 bedtime. [facility] Branch atorvastati 2020-0 Yes [id number] 80mg Take 1 Univers n 80 mg 2-23 tablet by ity of tablet 00:00: mouth at [place] 00 bedtime. [facility] Branch atorvastati 2020-0 Yes [id number] 80mg Take 1 Univers n 80 mg 2-23 tablet by ity of tablet 00:00: mouth at [place] [address] bedtime. Medical Branch atorvastati 2020-0 Yes [id number] 80mg Take 1 Univers n 80 mg 2-23 tablet by ity of tablet 00:00: mouth at [place] [address] bedtime. Medical Branch atorvastati 2020-0 Yes [id number] 80mg Take 1 Univers n 80 mg 2-23 tablet by ity of tablet 00:00: mouth at [place] [address] bedtime. Medical Branch atorvastati 2019-0 Yes [id number] 80mg Take 1 Univers n 80 mg 2-23 tablet by ity of tablet 00:00: mouth at [place] [address] bedtime. Medical Branch atorvastati 2019-0 Yes [id number] 80mg Take 1 Univers n 80 mg 2-23 tablet by ity of tablet 00:00: mouth at [place] [address] bedtime. Medical Branch atorvastati 2019-0 Yes [id number] 80mg Take 1 Univers n 80 mg 2-23 tablet by ity of tablet 00:00: mouth at [place] [address] bedtime. Medical Branch atorvastati 2019-0 Yes [id number] 80mg Take 1 Univers n 80 mg 2-23 tablet by ity of tablet 00:00: mouth at [place] [address] bedtime. Medical Branch atorvastati 2019-0 Yes [id number] 80mg Take 1 Univers n 80 mg 2-23 tablet by ity of tablet 00:00: mouth at [place] [address] bedtime. Medical Branch atorvastati 2019-0 Yes [id number] 80mg Take 1 Univers n 80 mg 2-23 tablet by ity of tablet 00:00: mouth at [place] [address] bedtime. Medical Branch atorvastati 2020-0 Yes [id number] 80mg Take 1 Univers n 80 mg 2-23 tablet by ity of tablet 00:00: mouth at [place] [address] bedtime. Medical Branch atorvastati 2020-0 Yes [id number] 80mg Take 1 Univers n 80 mg 2-23 tablet by ity of tablet 00:00: mouth at [place] [address] bedtime. Medical Branch atorvastati 2019-0 2020- No [id number] 80mg Take 1 Univers n 80 mg 2-23 04-06 tablet by ity of tablet 00:00: 00:00 mouth at [place] 00 :00 bedtime. Medical Branch atorvastati 2019-0 2020- No [id number] 80mg Take 1 Univers n 80 mg 2-23 04-06 tablet by ity of tablet 00:00: 00:00 mouth at [place] 00 :00 bedtime. Medical Branch Sliding 2020-0 Yes Subcutaneo Univ ers Scale 2-22 us, AC+HS, ity of Insulin - 17:30: [place] Aspart 00 on [facility] Medical (NOVOLOG) + 09/05/19 at [facility] Fsbg 1130, Testing Until Discontinu ed, Routine ipratropium 2020-0 Yes 3mL 3 mL, Unive rs -albuterol 09-05 Inhalation ity of (DUONEB) 14:45: , Q6HPRN, [place] 0.5 mg-3 00 Starting Medical mg(2.5 mg [facility] base)/3 mL 09/05/19 at nebulizer 0845, solution 3 Until mL Discontinu ed, Routine, Wheezing, Shortness of Breath, Bronchospa sm ondansetron 2020-0 Yes 4mg 4 mg, Slow Univers (ZOFRAN 2- IV Push, ity of (PF)) 14:43: Q6HPRN, [place] injection 4 22 Starting Medi lizzy mg [facility] 09/05/19 at 0843, Until Discontinu ed, Routine, Nausea and Vomiting (N/V) KCL 20 2020-0 2020- No 20meq 20 mEq, Univer s mEq/15 mL 09-05- Oral, ity of solution 20 11:45: 11:29 ONCE, 1 [place] mEq 00 :00 dose, [facility] Medical 09/05/19 at Branch 0545, Routine melatonin 2020-0 Yes 3mg 3 mg, Univers (MELATIN) 09-05 Oral, QHS, ity of tablet 3 mg 03:00: First dose [place] 00 on Fri Medical 09/04/19 at Branch 2100, Until Discontinu ed, Routine magnesium 2020-0 2020- No 2g 2 g, IV Univ ers sulfate in 09-04 Piggyback, it y of water 2 13:30: 12:41 ONCE, 1 [place] gram/50 mL 00 :00 dose, Fri Medi lizzy (4 %) 09/04/19 at [place] infusion 2 0730, g Routine KCL 2020-0 [...] 09/03/19 at 0900, Until Discontinu ed, Routine
membership coordinator approving Restricted medication : JENIFFER MORAN metoclopram [...] 50mg 50 mg, IV Un michael injection 2-18 02-18 Push, ity of 50 mg 22:30: 21:36 ONCE, 1 [place] 00 :00 dose, Tue Medical 09/01/19 at Branch 1630, Routine calcium 2020-0 2020- No 1000mg 1,000 mg, Un [place]ale chloride 09-01 Intravenou ity of 100 mg/mL 22:15: 21:22 s, ONCE, 1 [place] (10 %) 00 :00 dose, Tue Medical syringe 09/01/19 at Branch 1,000 mg 1615, Routine magnesium 2019-0 2020- No 2g 2 g, IV Univ [...] 1 dose, 09/01/19 at 1445, Routine albumin 2019- 2020- No 12.5g 12.5 g, IV Un [...] without an adequate hemodynami c response. FENTanyl 2019-0 2020- No 300ug 300 mcg, Uni vers TOBACCO CLOTH RECLAIMER (5 09-01-19 Intravenou ity of mcg/mL NS) 20:30: 03:59 s, 60 mL, [place] 00 :16 CONTINUOUS Medical , Starting Branch Sat09/01/19 at 1430, Until Sat09/01/19 at 2159 propofol IV 2019- No 5ug/kg/ 5-75 Un michael infusion 09-01 02-19 min mcg/kg/min ity of 20:13: 20:12 ?78.3 kg [place] 05 :05 (2.349-35. Medical 235 mL/hr, Branch [...] mg 00 First dose Medical on Sat [place] 09/01/19 at 1330, Until Discontinu ed, Routine ceFAZolin 0 2019- No 2000mg 2 g (2,000 Univers [...] No 4mg 4 mg, Slow Univers (ZOFRAN 218 09-05 IV Push, ity of (PF)) 19:19: 14:51 Q6HPRN, [place] injection 4 32 :48 Starting Medi lizzy mg [facility] 09/01/19 at 1319, Until 09/05/19 at 0851, KATHY, Nausea and Vomiting (N/V) naloxone 2020-0 Yes .1mg 0.1 mg, Univer s (NARCAN) 2-18 Slow IV ity of injection 19:17: Push, [place] 0.1 mg 45 [facility] 09/01/19 at 1317, Until Discontinu ed, Routine furosemide 2020-0 Yes 20mg 20 mg, IV Un michael (LASIX) 2-18 Push, PRN, ity of injection 19:13: 2 doses, [place] 20 mg 07 Starting Medical [facility] 09/01/19 at 1313, Until Discontinu ed, KATHY, Pressure Maintenanc e NaCl 0.9% 2020-0 Yes 250mL at 999 Unive rs (NS) bolus 2-18 mL/hr, 250 ity of infusion 19:13: mL, IV [place] 250 mL 07 Infusion, Medical PRN - SEE [place] INSTRUCTIO NS, 3 doses, Starting [facility] 09/01/19 at 1313, Until Discontinu ed, KATHY glucagon 2020-0 Yes 1mg 1 mg, Univers (GLUCAGEN 2-18 Intramuscu ity of DIAGNOSTIC 19:13: lar, PRN, [place] KIT) 06 Starting Medical injection [facility] 09/01/19 at 1313, Until Discontinu ed, KATHY, [...] Yes 650mg 650 mg, Un michael en 18 Rectal, ity of (TYLENOL) 19:13: Q6HPRN, [place] suppository 05 Starting Medi lizzy 650 mg [...] e [place] 5,000 Units 00 09/01/19 at [facility] in NaCl 0827, Branch 0.9% (NS) [...] furosemide 2020-0 2020- No 20mg 20 mg, [facility] ers (LASIX) 08-28- Slow IV ity of injection 16:45: 21:51 Push, [place] 20 mg 00 :27 DAILY, Medical First dose Branch on Sat08/28/19 at 1045, Until Discontinu ed, Routine lisinopril 2020-0 2020- No 10mg 10 mg, [facility] ers (PRINIVIL,Z 08-2719 Oral, ity of ESTRIL) [...] First dose [place] mg 00 on [facility] 08/25/19 at Branch 2100, Until Discontinu ed, Routine furosemide 2020-0 2020- No 40mg 40 mg, Univ ers (LASIX) 08-25 Oral, ity of tablet 40 23:00: 16:15 QAM+PM, [place] mg 00 :13 First dose Medical on [facility] 08/25/19 at 1700, Until Discontinu ed, Routine magnesium 2020-0 2020- No 296mL 296 mL, Uni vers citrate 08-25 Oral, ity of solution 23:00: 23:22 ONCE, 1 [place] 296 mL 00 :00 dose, [facility] 08/25/19 at Branch 1700, Routine D5W [...] Mon Med ical .74 -5.86 08/24/19 at [facility] gram 1700, solution Routine 4,000 mL furosemide 2020-0 2020- No 20mg 20 mg, IV U nivers (LASIX) 08-23-09 Push, ity of injection 17:00: 18:04 ONCE, 1 [place] 20 mg 00 :00 dose, [facility] 08/23/19 at Branch 1100, Routine metoprolol 2020-0 2020- No 50mg 50 mg, Univ ers tartrate 08-22- Oral, BID, ity of (LOPRESSOR) 02:00: 13:17 First dose [place] tablet 50 00 :43 on Fri Medical mg 08/21/19 at Branch 2000, Until Discontinu ed, Routine furosemide 2019-2019- No 40mg 40 mg, [facility] ers (LASIX) 08-22 Slow IV ity of injection 02:00: 15:59 Push, [place] 40 mg 00 :07 Q12H, Medical First dose Branch on 08/21/19 at 2000, Until Discontinu ed, Routine NaCl 0.9% 2020- No 1000mL at 50 [facility] ers (NS) IV 08-22- mL/hr, IV ity of infusion 01:30: 13:29 Infusion, You as 1,000 mL 00 :00 CONTINUOUS Medic al , Starting Branch 08/21/19 at 1930, Until 08/22/19 at 0729, Routine lidocaine 2020- No Infiltrati U nivers 1% (PF) 08-22 on, ity of (XYLOCAINE) 00:25: 00:25 TITRATE - [place] injection 30 :30 FOR Medical PROCEDURE Branch USE, 1 dose, Starting 08/21/19 at 1825, Until 08/21/19 at 1825, Routine lidocaine 2019- 2020- No Infiltrati U nivers 1% (PF) 08-22 on, ity of (XYLOCAINE) 00:11: 00:11 TITRATE - [place] injection 01 :01 FOR Medical PROCEDURE Branch USE, 1 dose, Starting 08/21/19 at 1811, Until 08/21/19 at 1811, Routine FENTanyl PF 2019- 2020- No Slow IV Un michael (SUBLIMAZE 08-22 Push, ity of (PF)) 00:08: 00:08 TITRATE - [place] injection 29 :29 FOR Medical PROCEDURE Branch USE, 1 dose, Starting 08/21/19 at 1808, Until 08/21/19 at 1808, Routine midazolam 2019-0 2020- No IV Push, Uni vers (VERSED) 08-22 TITRATE - ity o f injection 00:08: 00:08 FOR [place] 23 :23 PROCEDURE Medical USE, 1 Branch [...] 08/21/19 at 0900, Until Discontinu ed, Routine
membership coordinator approving Restricted medication : JENIFFER MORAN heparin 2020-0 2020- No 5000U 5,000 Univers (porcine) 08-21 Units, ity of injection 12:00: 19:23 Subcutaneo [place] 5,000 Units 00 :06 us, Q8H, Medi lizyz First dose Branch on Sat08/21/19 at 0600, [...] on [facility] Medical (NOVOLOG) + 08/20/19 at [facility] Fsbg 2115, Testing Until Discontinu ed, Routine metoprolol 2020-0 2020- No 25mg 25 mg, Univ ers tartrate 08-2107 Oral, Q6H, ity of (LOPRESSOR) 03:15: 15:29 First dose [place] tablet 25 00 :06 on [facility] Medical mg 08/20/19 at Branch 2115, Until Discontinu ed, Routine ALPRAZolam 2019-0 Yes .5mg 0.5 mg, [facility] ers (XANAX) 08-21 Oral, ity of tablet [...] IV Push, ity of mg 03:06: Q2HPRN, [place] 08 Starting Medical [facility]ie 08/20/19 Branch at [...] or has mental changes. dextrose 50 2019-0 2019- No 25mL 25 mL, Uni vers % [...] 1 [place] injection 4 00 :00 dose, [facility] Med ical mg 08/20/19 at Branch 1930, Routine ondansetron 2019- 2020- No 4mg 4 mg, Slow Univers (ZOFRAN 08-20 IV Push, ity of (PF)) 22:00: 19:29 Q6HPRN, [place] injection 4 19 :34 Starting Medi lizzy mg [facility] 08/20/19 Branch at 1600, Until Sat09/01/19 at 1329, Routine, Nausea and Vomiting (N/V) ALPRAZolam 2019- 2020- No .5mg 0.5 mg, Uni vers (XANAX) 08-20 Oral, ity of tablet 0.5 07:00: 06:45 ONCE, 1 You as mg 00 :00 dose, [facility] 08/20/19 at Branch 0100, Routine atorvastati 2019- 2020- No 40mg 40 mg, Uni vers n (LIPITOR) 08-20 Oral, QHS, i ty of tablet 40 03:00: 03:12 First dose [place] mg 00 :55 on Sat [facility] 08/19/19 at Branch 2100, Until Discontinu ed, Routine KCL 2019- 2020- No 40meq 40 mEq, Univers (KLOR-CON 08-20 Oral, BID, ity of M20) tablet 02:00: 15:08 First dose [place] 40 mEq 00 :22 on [facility] 08/19/19 at Branch 2000, Until Discontinu ed, Routine KCL 2020-0 2020- No 40meq 40 mEq, Univers (KLOR-CON 08-19 Oral, ONCE ity of M20) tablet 15:30: 15:02 NOW, 1 [place] as 40 mEq 00 :00 dose, [facility] Medical 08/19/19 at Branch 0930, Routine clopidogreL 2019- 2020- No 75mg 75 mg, Uni vers (PLAVIX) 08-19 Oral, ity of tablet 75 15:00: 03:12 DAILY, [place] mg 00 :55 First dose Medical on Sat [place] 08/19/19 at 0900, Until Discontinu ed, Routine aspirin 2019- 2020- No 81mg 81 mg, Univers chewable 08-19 Oral, ity of tablet 81 15:00: 03:12 DAILY, [place] mg 00 :55 First dose Medical on Sat Branch 08/19/19 at 0900, Until Discontinu ed, Routine enoxaparin 2020-0 2020- No 40mg 40 mg, [facility] ers (LOVENOX) 08-19 Subcutaneo ity of injection 15:00: 04:24 us, DAILY, [place] 40 mg 00 :57 First dose Medical on Sat08/19/19 at 0900, Until Discontinu ed, Routine ipratropium 2020-0 2020- No 3mL 3 mL, [facility] ers -albuterol 08-19 Inhalation it y of (DUONEB) 14:00: 14:43 , QID, [place] 0.5 mg-3 00 :46 First dose Medic al mg(2.5 mg on Sat base)/3 mL 08/19/19 at nebulizer 0800, solution 3 Until mL Discontinu ed, Routine insulin 2020-0 Yes 12U 12 Units, [facility] regular - Subcutaneo ity of human 13:30: us, BIDAC, [place] (HUMULIN R) 00 First dose Me dical injection on Sat Branch 12 Units 08/19/19 at 0730, Until Discontinu ed, Routine ipratropium 2019- 2020- No 3mL 3 mL, [facility] ers -albuterol 08-19- Inhalation it y of (DUONEB) 10:30: 09:31 , ONCE, 1 You as 0.5 mg-3 00 :00 dose, [facility] Medica l mg(2.5 mg 08/19/19 at [facility] h base)/3 mL 0430, nebulizer Routine solution 3 mL insulin 2020-0 2020- No 7U 7 Units, [facility] regular -11 13-05 Subcutaneo ity o f human 05:30: 05:28 us, ONCE, [place] (HUMULIN R) 00 :00 1 dose, Medic al injection 7 Sat08/18/19 Br anch Units at 2330, Routine furosemide 2019-0 2020- No 40mg 40 mg, [facility] ers (LASIX) 08-19- Slow IV ity of injection 04:00: 15:29 Push, Q8H, [place] 40 mg 00 :06 First dose Medical on Sat Branch 08/18/19 at 2200, Until Discontinu ed, Routine spironolact 2019- 2020- No 50mg 50 mg, Uni vers one 08-19 Oral, BID, ity of (ALDACTONE) 04:00: 03:12 First dose [place] tablet 50 00 :55 on e Medical mg 08/18/19 at Branch 2200, Until Discontinu ed, Routine Sliding 2019- No Subcutaneo Uni vers Scale 08-19 us, AC+HS, ity of Insulin-Reg 03:00: 03:12 First dose [place] ular + Fsbg 00 :55 on [facility] Medica l Testing 08/18/19 at Branch 2100, Until Discontinu ed, Routine insulin 2019- No 20U 20 Units, [facility] glargine 08-19 Subcutaneo ity of (LANTUS 02:00: 14:43 us, BID, [place] U-100) 00 :46 First dose Medical injection on [facility] Branch 20 Units 08/18/19 at 2000, Until Discontinu ed metoprolol 2019- No 50mg 50 mg, [facility] ers succinate 08-19 Oral, BID, ity of XL (TOPROL 02:00: 03:12 First dose [place] XL) tablet 00 :55 on [facility] Medical 50 mg 08/18/19 at Branch 2000, Until Discontinu ed nicotine 2019-0 2020- No 1{patch 1 Patch, U nivers (NICODERM) 08-19 } Topical, ity of 21 mg/24 hr 00:45: 03:12 Administer [place] patch 1 00 :55 over 24 Medical Patch Hours, Branch Q24H, First dose on 08/18/19 at 1845, Until Discontinu ed, Routine furosemide 2019- 2020- No 40mg 40 mg, IV U nivers (LASIX) 08-18 0204 Push, ity of injection 23:30: 22:38 ONCE, 1 [place] 40 mg 00 :00 dose, [facility] Medical 08/18/19 at Branch 1730, KATHY acetaminoph 2020-0 Yes 650mg 650 mg, Un michael en 2-04 Oral, ity of (TYLENOL) 22:56: Q6HPRN, [place] tablet 650 29 Starting Medic al mg [facility] 08/18/19 Branch at 1656, Until Discontinu ed, Routine, Pain (scale 1-3) acetaminoph 2018-07 2020- No [id number] 1{tbl} Take 1 Univers en-codeine 0-09 02-04 tablet by ity of (TYLENOL-CO 00:00: 00:00 [place] DEINE #3) 00 :00 every 4 Medical 300-30 mg (four) Branch tablet hours as needed for Pain (scale 4-6) or Pain (scale 7-10). ferrous Yes [id number] 325mg Take 1 Un michael sulfate 8-31 tablet by ity of (FERROUSUL) 00:00: mouth 3 You as 325 mg (65 00 (three) Medica l mg iron) times Branch tablet daily with meals. ferrous Yes [id number] 325mg Take 1 Un [place] sulfate 8-31 tablet by ity of (FERROUSUL) 00:00: mouth 3 You as 325 mg (65 00 (three) Medica l mg iron) times Branch tablet daily with meals. ferrous Yes [id number] 325mg Take 1 [place] sulfate 8-31 tablet by ity of (FERROUSUL) 00:00: mouth 3 You as 325 mg (65 00 (three) Medica l mg iron) times Branch tablet daily with meals. ferrous Yes [id number] 325mg Take 1 [place] sulfate 8-31 tablet by ity of (FERROUSUL) 00:00: mouth 3 You as 325 mg (65 00 (three) Medica l mg iron) times Branch tablet daily with meals. ferrous Yes [id number] 325mg Take 1 [place] sulfate 8-31 tablet by ity of (FERROUSUL) 00:00: mouth 3 You as 325 mg (65 00 (three) Medica l mg iron) times Branch tablet daily with meals. ferrous 0 Yes [id number] 325mg Take 1 [place] sulfate 8-31 tablet by ity of (FERROUSUL) 00:00: mouth 3 [place] as 325 mg (65 00 (three) Medica l mg iron) times Branch tablet daily with meals. ferrous Yes [id number] 325mg Take 1 Un [place] sulfate 8-31 tablet by ity of (FERROUSUL) 00:00: mouth 3 You as 325 mg (65 00 (three) Medica l mg iron) times Branch tablet daily with meals. ferrous 2018-0 Yes [id number] 325mg Take 1 Un [place] sulfate 8-31 tablet by ity of (FERROUSUL) 00:00: mouth 3 You as 325 mg (65 00 (three) Medica l mg iron) times Branch tablet daily with meals. ferrous 2018-0 Yes [id number] 325mg Take 1 Un [place] sulfate 8-31 tablet by ity of (FERROUSUL) 00:00: mouth 3 You as 325 mg (65 00 (three) Medica l mg iron) times Branch tablet daily with meals. ferrous 2018-0 Yes [id number] 325mg Take 1 Un michael sulfate 8-31 tablet by ity of (FERROUSUL) 00:00: mouth 3 You as 325 mg (65 00 (three) Medica l mg iron) times Branch tablet daily with meals. ferrous 2018-0 Yes [id number] 325mg Take 1 Un michael sulfate 8-31 tablet by ity of (FERROUSUL) 00:00: mouth 3 You as 325 mg (65 00 (three) Medica l mg iron) times Branch tablet daily with meals. ferrous 2018-0 2020- No [id number] 325mg Take 1 U nivers sulfate 8-31 [...] tablet 00:00: mouth [place] 00 daily. [facility] Branch aspirin 81 2018-0 Yes 81mg Take [...] Units ity of human 00:00: under the [place] (HUMULIN R 00 skin 2 Medical U-100) [...] Units ity of human 00:00: under the [place] (HUMULIN R 00 skin 2 Medical U-100) [...] Units ity of human 00:00: under the [place] (HUMULIN R 00 skin 2 Medical U-100) 100 (two) Branch unit/mL times injection daily before breakfast and dinner. insulin 2018-0 Yes 12U inject 12 Unive rs regular 3-14 Units ity of human 00:00: under the [place] (HUMULIN R 00 skin 2 Medical U-100) 100 (two) Branch unit/mL times injection daily before breakfast and dinner. insulin 2018-0 Yes 12U inject 12 Unive rs regular 3-14 Units ity of human 00:00: under the [place] (HUMULIN R 00 skin 2 Medical U-100) 100 (two) Branch unit/mL times injection daily before breakfast and dinner. insulin 2018-0 Yes 12U inject 12 Unive rs regular 3-14 Units ity of human 00:00: under the [place] (HUMULIN R 00 skin 2 Medical U-100) [...] Immunizations Ordered Filled Immunization Date Status Comments [facility] e Immunization Name Name TDAP (ADACEL) 2019-09-18 Completed University of VACCINE 00:00:00 [facility] Branch TDAP (ADACEL) 2019-09-18 Completed University of VACCINE 00:00:00 [facility] Branch TDAP (ADACEL) 2019-09-18 Completed University of VACCINE 00:00:00 [facility] Branch TDAP (ADACEL) 2019-09-18 Completed University of VACCINE 00:00:00 [facility] Branch TDAP (ADACEL) 2019-09-18 Completed University of VACCINE 00:00:00 [facility] Branch TDAP (ADACEL) 2019-09-18 Completed University of VACCINE 00:00:00 [facility] Branch TDAP (ADACEL) 2019-09-18 Completed University of VACCINE 00:00:00 [facility] Branch TDAP (ADACEL) 2019-09-18 Completed University of VACCINE 00:00:00 [facility] Branch TDAP (ADACEL) 2019-09-18 Completed University of VACCINE 00:00:00 [facility] Branch TDAP (ADACEL) 2019-09-18 Completed University of VACCINE 00:00:00 [facility] Branch TDAP (ADACEL) 2019-09-18 Completed University of VACCINE 00:00:00 [facility] Branch TDAP (ADACEL) 2019-09-18 Completed University of VACCINE 00:00:00 [facility] Branch TDAP (ADACEL) 2019-09-18 Completed University of VACCINE 00:00:00 [facility] Branch TDAP (ADACEL) 2019-09-18 Completed University of VACCINE 00:00:00 [place] [facility] TDAP (ADACEL) 2019-09-18 Completed University of VACCINE 00:00:00 [place] [facility] TDAP (ADACEL) 2019-09-18 Completed University of VACCINE 00:00:00 [place] [facility] TDAP (ADACEL) 2019-09-18 Completed University of VACCINE 00:00:00 [place] [facility] TDAP (ADACEL) 2019-09-18 Completed University of VACCINE 00:00:00 [place] [facility] TDAP (ADACEL) 2019-09-18 Completed University of VACCINE 00:00:00 [place] [facility] TDAP (ADACEL) 2019-09-18 Completed University of VACCINE 00:00:00 [place] [facility] TDAP (ADACEL) 2019-09-18 Completed University of VACCINE 00:00:00 [place] [facility] TDAP (ADACEL) 2019-09-18 Completed University of VACCINE 00:00:00 [facility] TDAP (ADACEL) 2019-09-18 Completed University of VACCINE 00:00:00 [facility] Branch TDAP (ADACEL) 2019-09-18 Completed University of VACCINE 00:00:00 [facility] Branch TDAP (ADACEL) 2019-09-18 Completed University of VACCINE 00:00:00 [facility] Branch TDAP (ADACEL) 2019-09-18 Completed University of VACCINE 00:00:00 [facility] TDAP (ADACEL) 2019-09-18 Completed University of VACCINE 00:00:00 [facility] Branch TDAP (ADACEL) 2019-09-18 Completed University of VACCINE 00:00:00 [place] [facility] TDAP (ADACEL) 2019-09-18 Completed University of VACCINE 00:00:00 [place] [facility] TDAP (ADACEL) 2019-09-18 Completed University of VACCINE 00:00:00 [place] [facility] TDAP (ADACEL) 2019-09-18 Completed University of VACCINE 00:00:00 [place] [facility] TDAP (ADACEL) 2019-09-18 Completed University of VACCINE 00:00:00 [place] [facility] TDAP (ADACEL) 2019-09-18 Completed University of VACCINE 00:00:00 [place] [facility] TDAP (ADACEL) 2019-09-18 Completed University of VACCINE 00:00:00 [place] [facility] TDAP (ADACEL) 2019-09-18 Completed University of VACCINE 00:00:00 [place] [facility] TDAP (ADACEL) 2019-09-18 Completed University [...] (ADACEL) 2019-09-18 Completed University of VACCINE 00:00:00 [place] [facility] TDAP (ADACEL) 2019-09-18 Completed University of VACCINE 00:00:00 [place] [facility] TDAP (ADACEL) 2019-09-18 Completed University of VACCINE 00:00:00 [place] [facility] TDAP (ADACEL) 2019-09-18 Completed University of VACCINE 00:00:00 [place] [facility] TDAP (ADACEL) 2019-09-18 Completed University of VACCINE 00:00:00 [place] [facility] TDAP (ADACEL) 2019-09-18 Completed University of VACCINE 00:00:00 [place] [facility] TDAP (ADACEL) 2019-09-18 Completed University of VACCINE 00:00:00 [place] [facility] TDAP (ADACEL) 2019-09-18 Completed University of VACCINE 00:00:00 [place] [facility] TDAP (ADACEL) 2019-09-18 Completed University of VACCINE 00:00:00 [place] [facility] TDAP (ADACEL) 2019-09-18 Completed University of VACCINE 00:00:00 [place] [facility] TDAP (ADACEL) 2019-09-18 Completed University of VACCINE 00:00:00 [place] [facility] TDAP (ADACEL) 2019-09-18 Completed University of VACCINE 00:00:00 [place] [facility] TDAP (ADACEL) 2019-09-18 Completed University of VACCINE 00:00:00 [place] [facility] TDAP (ADACEL) 2019-09-18 Completed University of VACCINE 00:00:00 [place] [facility] TDAP (ADACEL) 2019-09-18 Completed University of VACCINE 00:00:00 [place] [facility] TDAP (ADACEL) 2019-09-18 Completed University of VACCINE 00:00:00 [place] [facility] TDAP (ADACEL) 2019-09-18 Completed University of VACCINE 00:00:00 [facility] TDAP (ADACEL) 2019-09-18 Completed University of VACCINE 00:00:00 [facility] Pneumococcal 2017-09-23 Completed University o f Polysaccharide, [...] Comments Source Systolic blood 2020-11-09 144 mm[Hg] University of pressure 13:12:00 [facility] Diastolic blood 2020-11-09 58 mm[Hg] University o f pressure 13:12:00 [facility] Heart rate 2020-11-09 61 /min University of 13:12:00 [facility] Branch Respiratory rate 2020-11-09 18 /min University of :12:00 [facility] Branch Oxygen saturation 2020-11-09 100 /min University of in Arterial blood 13:12:00 [place] Medi lizzy by Pulse oximetry Branch Body temperature 2020-11-09 36.89 [place] University of 09:00:00 [facility] Body height 2020-11-07 190.5 cm University of 19:10: [facility] Body weight 2020-11-07 72.576 kg University of 19:10: [facility] BMI 2020-11-07 20.00 kg/m2 University of 19:10: [facility] Systolic blood 2020-05-03 157 mm[Hg] University of pressure 21:02:00 [facility] Branch Diastolic blood 2020-05-03 82 mm[Hg] University o f pressure 21:02:00 [facility] Heart rate 2020-05-03 59 /min University of 21:02:00 [facility] Branch Respiratory rate 2020-05-03 18 /min University of 21:02:00 [facility] Oxygen saturation 2020-05-03 100 /min University of in Arterial blood 21:02:00 [place] Medi lizzy by Pulse oximetry Branch Body temperature 2020-05-03 37 [place] University of 18:42:00 [facility] Branch Body height 2020-05-03 182.9 cm University of 18:42:00 [facility] Body weight 2020-05-03 72.576 kg University of 18:42:00 [facility] BMI 2020-05-03 21.70 kg/m2 University of 18:42:00 [facility] Branch Systolic blood 2019-10-28 152 mm[Hg] University of pressure 12:52:00 [place] [facility] [facility] Diastolic blood 2019-10-28 77 mm[Hg] University o f pressure 12:52:00 [facility] Heart rate 2019-10-28 69 /min University of 12:52:00 [facility] Body temperature 2019-10-28 36.78 Bernad[place] University of 12:52:00 [facility] Respiratory rate 2019-10-28 20 /min University of 12:52:00 [facility] Oxygen saturation 2019-10-28 97 /min University of in Arterial blood 12:52:00 [place] [facility] Pulse oximetry [facility] Body height 2019-10-27 182.9 cm University of 06:06:00 [facility] Body weight 2019-10-27 74.98 kg University of 06:06:00 [facility] BMI 2019-10-27 22.42 kg/m2 University of 06:06:00 [facility] Systolic blood 2019-10-12 147 mm[Hg] University of pressure 18:07:00 [facility] Diastolic blood 2019-10-12 73 mm[Hg] University o f pressure 18:07:00 [facility] Heart rate 2019-10-12 80 /min University of 18:07:00 [facility] Body temperature 2019-10-12 35.22 Bernadine University of 18:07:00 [facility] Respiratory rate 2019-10-12 16 /min University of 18:07:00 [facility] Body weight 2019-10-12 75.751 kg University of 18:07:00 [facility] BMI 2019-10-12 22.65 kg/m2 University of 18:07:00 [facility] Oxygen saturation 2019-10-12 98 /min University of in Arterial blood 18:07:00 [facility] by Pulse oximetry Branch Systolic blood 2019-10-01 136 mm[Hg] University of pressure 21:37:00 [facility] Diastolic blood 2019-10-01 59 mm[Hg] University o f pressure 21:37:00 [facility] Heart rate 2019-10-01 78 /min University of 21:37:00 [facility] Body temperature 2019-10-01 36.83 Bernadine University of 21:37:00 [facility] Respiratory rate 2019-10-01 18 /min University of 21:37:00 [facility] Oxygen saturation 2019-10-01 91 /min [facility] in Arterial blood 21:37:00 [facility] by Pulse oximetry Branch Body height 2019-09-30 182.9 cm University of 00:30:00 [facility] Body weight 2019-09-30 77.8 kg University of 00:30:00 [facility] BMI 2019-09-30 23.26 kg/m2 University of 00:30:00 [facility] Systolic blood 2019-09-28 142 mm[Hg] University of pressure 17:50:00 [facility] Diastolic blood 2019-09-28 68 mm[Hg] University o f pressure 17:50:00 [facility] Heart rate 2019-09-28 77 /min University of 17:50:00 [facility] Body temperature 2019-09-28 36.89 Bernadine University of 17:50:00 [facility] Respiratory rate 2019-09-28 16 /min University of 17:50:00 [facility] Body weight 2019-09-28 72.213 kg University of 17:50:00 [facility] BMI 2019-09-28 21.59 kg/m2 University of 17:50:00 [facility] Oxygen saturation 2019-09-28 99 /min University of in Arterial blood 17:50:00 [facility] lizzy by Pulse oximetry Branch Systolic blood 2019-09-21 132 mm[Hg] University of pressure 18:11:00 [facility] Diastolic blood 2019-09-21 70 mm[Hg] University o f pressure 18:11:00 [facility] Heart rate 2019-09-21 79 /min University of 18:11:00 [facility] Body temperature 2019-09-21 36.33 Bernadine University of 18:11:00 [facility] Respiratory rate 2019-09-21 16 /min University of 18:11:00 [facility] Body weight 2019-09-21 71.668 kg University of 18:11:00 [facility] BMI 2019-09-21 21.43 kg/m2 University of 18:11:00 [facility] Oxygen saturation 2019-09-21 97 /min University of in Arterial blood 18:11:00 [facility] by Pulse oximetry Branch Systolic blood 2019-09-19 162 mm[Hg] University of pressure 02:30:00 [facility] Diastolic blood 2019-09-19 76 mm[Hg] University o f pressure 02:30:00 [facility] Heart rate 2019-09-19 81 /min University of 02:30:00 [facility] Respiratory rate 2019-09-19 19 /min University of 02:30:00 [facility] Oxygen saturation 2019-09-19 96 /min University of in Arterial blood 02:30:00 [facility] by Pulse oximetry Branch Body temperature 2019-09-19 37.28 Bernadine University of 00:05:00 [facility] Body height 2019-09-19 182.9 cm University of 00:05:00 [facility] Body weight 2019-09-19 73.483 kg University of 00:05:00 [facility] BMI 2019-09-19 21.97 kg/m2 University of 00:05:00 [facility] Systolic blood 2019-09-15 128 mm[Hg] University of pressure 18:00:00 [facility] Diastolic blood 2019-09-15 66 mm[Hg] University o f pressure 18:00:00 [facility] Heart rate 2019-09-15 77 /min University of 18:00:00 [facility] Body temperature 2019-09-15 36.94 [place]ad[place] University of 18:00:00 [facility] Respiratory rate 2019-09-15 17 /min University of 18:00:00 [facility] Oxygen saturation 2019-09-15 99 /min University of in Arterial blood 18:00:00 [facility] lizzy by Pulse oximetry Branch Body weight 2019-09-12 80 kg University of 15:21:00 [facility] BMI 2019-09-12 23.92 kg/m2 University of 15:21:00 [facility] Systolic blood 2019-09-07 135 mm[Hg] University of pressure 18:00:00 [facility] Diastolic blood 2019-09-07 75 mm[Hg] University o f pressure 18:00:00 [facility] Heart rate 2019-09-07 70 /min University of 18:00:00 [facility] Respiratory rate 2019-09-07 23 /min University of 18:00:00 [facility] Oxygen saturation 2019-09-07 95 /min University of in Arterial blood 18:00:00 [facility] by Pulse oximetry Branch Body temperature 2019-09-07 36.83 Bernad[place] University of 14:00:00 [facility] Body height 2019-09-04 182.9 cm University of 06:00:00 [facility] Body weight 2019-09-04 73.2 kg University of 06:00:00 [facility] BMI 2019-09-04 21.89 kg/m2 University of 06:00:00 [facility] Systolic blood 2020-11-09 144 mm[Hg] University of pressure 13:12:00 [facility] Diastolic blood 2020-11-09 58 mm[Hg] University o f pressure 13:12:00 [facility] Heart rate 2020-11-09 61 /min University of 13:12:00 [facility] Respiratory rate 2020-11-09 18 /min University of 13:12:00 [facility] Oxygen saturation 2020-11-09 100 /min University of in Arterial blood 13:12:00 [place] [facility] Pulse oximetry [facility] Body temperature 2020-11-09 36.89 [place]ad[place] University of 09:00:00 [facility] Body height 2020-11-07 190.5 cm University of 19:10:00 [facility] Body weight 2020-11-07 72.576 kg [place] of 19:10:00 [facility] BMI 2020-11-07 20.00 kg/m2 University of 19:10:00 [facility] Heart rate 2020-11-06 69 /min [facility] 16:48:00 [facility] Respiratory rate 2020-11-06 18 /min [facility] 16:48:00 [facility] Oxygen saturation 2020-11-06 99 /min [facility] Arterial blood 16:48:00 [facility] by Pulse oximetry [place] Systolic blood 2020-11-06 122 mm[Hg] [facility] pressure 16:38:00 [facility] Diastolic blood 2020-11-06 57 mm[Hg] University o f pressure 16:38:00 [facility] Body temperature 2020-11-06 37.17 Bernadine [facility] 16:38:00 [facility] Body weight 2020-11-03 73 kg [place] of :00:00 [facility] BMI 2020-11-03 20.12 kg/m2 [place] of 01:00:00 [facility] Body height 2020-10-22 190.5 cm [facility] 16:30:00 [facility] Systolic blood 2019-09-29 155 mm[Hg] Location: [facility]; [place] [facility] 16:23:00 Position: [place] [facility] Diastolic blood 2019-09-29 68 mm[Hg] Location: [facility] 16:23:00 Position: [place] [facility] Body height 2019-09-29 72 [in_us] University of 16:23:00 [place] [facility] Weight 2019-09-29 163 [lb_av] University of 16:23:00 [place] [facility] Body mass index 2019-09-29 22.11 kg/m2 University o f (BMI) [Ratio] 16:23:00 [place] [facility] Body temperature 2019-09-29 97.9 [degF] Method: Oral [facility] 16:23:00 [place] [facility] Heart Rate 2019-09-29 75 /min [facility] 16:23:00 [place] [facility] Procedures Procedure Date / Time Performing Source Performed Clinician DME/SUPPLY JUSTIFICATION 2020-12-16 Doctor Univers ity of 05:01:00 Unassigned, No [facility] DNR 2020-11-16 [facility] University of 05:01:00 Unassigned, No [facility] POCT GLUCOSE (AUTOMATED) 2020-11-09 David Howell sity of 16:50:00 J [facility] POCT GLUCOSE (AUTOMATED) 2020-11-09 David Howell sity of 16:50:00 [facility] CBC WITHOUT DIFF 2020-11-09 [facility] of 10:56:00 [facility] BASIC METABOLIC PANEL (NA, K, CL, 2020-11-09 [facility] of CO2, GLUCOSE, BUN, CREATININE, CA) 10:56:00 [facility] MAGNESIUM 2020-11-09 [facility] of 10:56:00 [facility] MAGNESIUM 2020-11-09 [facility] of 10:56:00 [facility] BASIC METABOLIC PANEL (NA, K, CL, 2020-11-09 [facility] of CO2, GLUCOSE, BUN, CREATININE, CA) 10:56:00 [facility] CBC WITHOUT DIFF 2020-11-09 [facility] of 10:56:00 [facility] POCT GLUCOSE (AUTOMATED) 2020-11-09 David Howell sity of 10:55:00 J [facility] POCT GLUCOSE (AUTOMATED) 2020-11-09 David Howell sity of 10:55:00 J [facility] POCT GLUCOSE (AUTOMATED) 2020-11-09 David Howell sity of 05:23:00 J [facility] POCT GLUCOSE (AUTOMATED) 2020-11-09 David Howell sity of 05:23:00 J [facility] POCT GLUCOSE (AUTOMATED) 2020-11-08 David Howell sity of 23:22:00 J [facility] POCT GLUCOSE (AUTOMATED) 2020-11-08 David Howell sity of 23:22:00 J [facility] POCT GLUCOSE (AUTOMATED) 2020-11-08 David Howell sity of 15:47:00 J [facility] POCT GLUCOSE (AUTOMATED) 2020-11-08 David Howell Univer sity of 15:47:00 J [facility] POCT GLUCOSE (AUTOMATED) 2020-11-08 David Howell Univer sity of 11:15:00 J [facility] POCT GLUCOSE (AUTOMATED) 2020-11-08 David Howell sity of 11:15:00 [facility] CBC WITH DIFF 2020-11-08 [facility] of 09:53:00 [facility] BASIC METABOLIC PANEL (NA, K, CL, 2020-11-08 [facility] of CO2, GLUCOSE, BUN, CREATININE, CA) 09:53:00 [facility] BASIC METABOLIC PANEL (NA, K, CL, 2020-11-08 [facility] of CO2, GLUCOSE, BUN, CREATININE, CA) 09:53:00 [facility] CBC WITH DIFF 2020-11-08 [facility] of 09:53:00 [facility] POCT GLUCOSE (AUTOMATED) 2020-11-08 David Howell Univer sity of 05:42:00 J [facility] POCT GLUCOSE (AUTOMATED) 2020-11-08 David Howell Univer sity of 05:42:00 J [facility] POCT GLUCOSE (AUTOMATED) 2020-11-07 David Howell Univer sity of 22:01:00 J [facility] POCT GLUCOSE (AUTOMATED) 2020-11-07 David Howell Univer sity of 22:01:00 J [facility] POCT GLUCOSE (AUTOMATED) 2020-11-07 David Howell Univer sity of 13:13:00 J [facility] POCT GLUCOSE (AUTOMATED) 2020-11-07 David Howell Univer sity of 13:13:00 J [facility] POCT GLUCOSE (AUTOMATED) 2020-11-07 David Howell Univer sity of 10:26:00 J [facility] POCT GLUCOSE (AUTOMATED) 2020-11-07 David Howeller sity of 10:26:00 J [facility] CBC WITHOUT DIFF 2020-11-07 [facility] 09:[facility]00 [facility] BASIC METABOLIC PANEL (NA, K, CL, 2020-11-07 [facility] of CO2, GLUCOSE, BUN, CREATININE, CA) 09:49:00 [facility] MAGNESIUM 2020-11-07 [facility] of 09:49:00 [facility] MAGNESIUM 2020-11-07 [facility] of 09:49:00 [facility] BASIC METABOLIC PANEL (NA, K, CL, 2020-11-07 [facility] of CO2, GLUCOSE, BUN, CREATININE, CA) 09:49:00 [facility] CBC WITHOUT DIFF 2020-11-07 [facility] of 09:49:00 [facility] POCT GLUCOSE (AUTOMATED) 2020-11-07 David Howell Univloi sity of 05:13:00 J [facility] POCT GLUCOSE (AUTOMATED) 2020-11-07 David Howell Univer sity of 05:13:00 [facility] POCT GLUCOSE (AUTOMATED) 2020-11-06 David Howell Univer sity of 22:48:00 J [facility] POCT GLUCOSE (AUTOMATED) 2020-11-06 David Howell Univer sity of 22:48:00 J [facility] POCT GLUCOSE (AUTOMATED) 2020-11-06 David Howell Univer sity of 16:49:00 J [facility] POCT GLUCOSE (AUTOMATED) 2020-11-06 David Howell Univer sity of 16:49:00 J [facility] POCT GLUCOSE (AUTOMATED) 2020-11-06 David Howell Univloi sity of 11:11:00 J [facility] POCT GLUCOSE (AUTOMATED) 2020-11-06 David Howell Univer sity of 11:11:00 [facility] CBC WITHOUT DIFF 2020-11-06 [facility] of 10:42:00 [facility] BASIC METABOLIC PANEL (NA, K, CL, 2020-11-06 [facility] of CO2, GLUCOSE, BUN, CREATININE, CA) 10:42:00 [facility] MAGNESIUM 2020-11-06 [facility] of 10:42:00 [facility] MAGNESIUM 2020-11-06 [facility] of 10:42:00 [facility] BASIC METABOLIC PANEL (NA, K, CL, 2020-11-06 [facility] of CO2, GLUCOSE, BUN, CREATININE, CA) 10:42:00 [facility] CBC WITHOUT DIFF 2020-11-06 [facility] of 10:42:00 [facility] POCT GLUCOSE (AUTOMATED) 2020-11-06 David Howell sity of 05:07:00 J [facility] POCT GLUCOSE (AUTOMATED) 2020-11-06 David Howell sity of 05:07:00 J [facility] POCT GLUCOSE (AUTOMATED) 2020-11-05 David Howell sity of 18:40:00 J [facility] POCT GLUCOSE (AUTOMATED) 2020-11-05 David Howlel sity of 18:40:00 J [facility] URINE CULTURE 2020-11-05 [facility] of 14:56:00 [facility] URINE CULTURE 2020-11-05 [facility] of 14:56:00 [facility] BLOOD CULTURE SCREEN 2020-11-05 [facility] of 14:54:00 [facility] BLOOD CULTURE SCREEN 2020-11-05 [facility] of 14:54:00 [facility] BLOOD CULTURE SCREEN 2020-11-05 [facility] of 14:44:00 [facility] BLOOD CULTURE SCREEN 2020-11-05 [facility] of 14:44:00 [facility] XR CHEST 1 VW 2020-11-05 [facility] of 12:03:32 [facility] XR CHEST 1 VW 2020-11-05 [facility] of 12:03:32 [facility] POCT GLUCOSE (AUTOMATED) 2020-11-05 David Howell sity of 11:13:00 J [facility] POCT GLUCOSE (AUTOMATED) 2020-11-05 David Howell sity of 11:13:00 J [facility] CBC WITHOUT DIFF 2020-11-05 [facility] of 09:31:00 [facility] BASIC METABOLIC PANEL (NA, K, CL, 2020-11-05 [facility] of CO2, GLUCOSE, BUN, CREATININE, CA) 09:31:00 [facility] MAGNESIUM 2020-11-05 [facility] of 09:31:00 [facility] MAGNESIUM 2020-11-05 [facility] of 09:31:00 [facility] BASIC METABOLIC PANEL (NA, K, CL, 2020-11-05 [facility] of CO2, GLUCOSE, BUN, CREATININE, CA) 09:31:00 [facility] CBC WITHOUT DIFF 2020-11-05 [facility] of 09:31:00 [facility] POCT GLUCOSE (AUTOMATED) 2020-11-05 David Howell sity of 04:54:00 J [facility] POCT GLUCOSE (AUTOMATED) 2020-11-05 David Howell sity of 04:54:00 J [facility] POCT GLUCOSE (AUTOMATED) 2020-11-04 David Howell sity of 22:58:00 J [facility] POCT GLUCOSE (AUTOMATED) 2020-11-04 David Howell sity of 22:58:00 J [facility] XR KUB 2020-11-04 [facility] of 21:35:45 [facility] XR KUB 2020-11-04 [facility] of 21:35:45 [facility] POCT GLUCOSE (AUTOMATED) 2020-11-04 David Howell Univer sity of 16:51:00 J [facility] POCT GLUCOSE (AUTOMATED) 2020-11-04 David Howell sity of 16:51:00 J [facility] PROTHROMBIN TIME / INR 2020-11-04 [facility] y of 15:55:00 [facility] PROTHROMBIN TIME / INR 2020-11-04 [facility] y of 15:55:00 [facility] POCT GLUCOSE (AUTOMATED) 2020-11-04 David Howell sity of 15:21:00 J [facility] POCT GLUCOSE (AUTOMATED) 2020-11-04 David Howell sity of 15:21:00 J [facility] CBC WITHOUT DIFF 2020-11-04 [facility] of 10:04:00 [facility] BASIC METABOLIC PANEL (NA, K, CL, 2020-11-04 [facility] of CO2, GLUCOSE, BUN, CREATININE, CA) 10:04:00 [facility] MAGNESIUM 2020-11-04 [facility] of 10:04:00 [facility] MAGNESIUM 2020-11-04 [facility] of 10:04:00 [facility] BASIC METABOLIC PANEL (NA, K, CL, 2020-11-04 [facility] of CO2, GLUCOSE, BUN, CREATININE, CA) 10:04:00 [facility] CBC WITHOUT DIFF 2020-11-04 [facility] of 10:04:00 [facility] POCT GLUCOSE (AUTOMATED) 2020-11-03 Antonio Villa Univers ity of 16:54:00 [facility] POCT GLUCOSE (AUTOMATED) 2020-11-03 Antonio Villa Univers ity of 16:54:00 [facility] BASIC METABOLIC PANEL (NA, K, CL, 2020-11-03 Ele Cao [place] of CO2, GLUCOSE, BUN, CREATININE, CA) 12:53:00 [facility] MAGNESIUM 2020-11-03 Ele Cao [place] of 12:53:00 [facility] MAGNESIUM 2020-11-03 [facility] of 12:53:00 [facility] BASIC METABOLIC PANEL (NA, K, CL, 2020-11-03 Ele Cao of CO2, GLUCOSE, BUN, CREATININE, CA) 12:53:00 [facility] POCT GLUCOSE (AUTOMATED) 2020-11-03 Antonio Villa Univers ity of 12:47:00 [facility] POCT GLUCOSE (AUTOMATED) 2020-11-03 Antonio Villa Univers ity of 12:47:00 [facility] THYROID PEROXIDASE (TPO) AB 2020-11-03 Ele Cao [facility] versity of 10:10:00 [facility] CBC WITH DIFF 2020-11-03 Ele Cao [place] of 10:10:00 [facility] CBC WITH DIFF 2020-11-03 Ele Cao [place] of 10:10:00 [facility] THYROID PEROXIDASE (TPO) AB 2020-11-03 Kiley Ele [facility] versity of 10:10:00 [facility] POCT GLUCOSE (AUTOMATED) 2020-11-03 Antonio Villa Univers ity of 10:09:00 [facility] POCT GLUCOSE (AUTOMATED) 2020-11-03 Antonio Villa Univers ity of 10:09:00 [facility] POCT GLUCOSE (AUTOMATED) 2020-11-03 Antonio Villa [facility] ity of 04:38:00 [facility] POCT GLUCOSE (AUTOMATED) 2020-11-03 Antonio Villa [facility] ity of 04:38:00 [facility] BASIC METABOLIC PANEL (NA, K, CL, 2020-11-03 Ele Cao [place] of CO2, GLUCOSE, BUN, CREATININE, CA) 02:22:00 [facility] MAGNESIUM 2020-11-03 Ele Cao [place] of 02:22:00 [facility] MAGNESIUM 2020-11-03 Ele Cao [place] of 02:22:00 [facility] BASIC METABOLIC PANEL (NA, K, CL, 2020-11-03 Ele Cao [place] of CO2, GLUCOSE, BUN, CREATININE, CA) 02:22:00 [facility] XR KUB 2020-11-02 Ele Cao [place] of 22:56:53 [facility]UB 2020[facility]11[facility]02 [facility] 22:56[facility]53 [facility] VITAMIN B6, PLASMA 2020-11-02 [facility] of 22:49:00 [facility] VITAMIN B6, PLASMA 2020-11-02 [facility] of 22:49:00 [facility] POCT GLUCOSE (AUTOMATED) 2020-11-02 Antonio Villa [facility] ity of 22:20:00 [facility] POCT GLUCOSE (AUTOMATED) 2020-11-02 Antonio Villa [facility] ity of 22:20:00 [facility] MENINGITIS/ENCEPHALITIS PANEL BY 2020-11-02 Ele Cao of PCR 20:45:00 [facility] CSF/EGG GATHERER SHUNT CULTURE 2020-11-02 Ele Cao [place] of 20:45:00 [facility] BODY FLUID [facility] DI[facility]02 [facility]00 [facility] CEREBROSPINAL FLUID GLUCOSE 2020-11-02 Kiley [facility] ersity of 20:45:00 [facility] CEREBROSPINAL FLUID PROTEIN 2020-11-02 Kiley, [facility] ersity of 20:45:00 [facility] CSF CULTURE 2020-11-02 Kiley [facility] of 20:45:00 [facility] CEREBROSPINAL FLUID PROTEIN 2020-11-02 Kiley, [facility] ersity of 20:45:00 [facility] CEREBROSPINAL FLUID GLUCOSE 2020-11-02 Kiley, [facility] ersity of 20:45:00 [facility] BODY FLUID DIRECT COUNT 2020-11-02 Kiley [facility] ty of 20:45:00 [facility] CSF/EGG GATHERER SHUNT CULTURE 2020-11-02 Kiley [facility] of 20:45:00 [facility] CSF CULTURE 2020-11-02 Kiley, [facility] of 20:45:00 [facility] MENINGITIS/ENCEPHALITIS PANEL BY 2020-11-02 Kiley [facility] of PCR 20:45:00 [facility] BASIC METABOLIC PANEL (NA, K, CL, 2020-11-02 Kiley [facility] of CO2, GLUCOSE, BUN, CREATININE, CA) 17:39:00 [facility] MAGNESIUM 2020-11-02 Kiley [facility] of 17:39:00 [facility] MAGNESIUM 2020-11-02 iKley [facility] of 17:39:00 [facility] BASIC METABOLIC PANEL (NA, K, CL, 2020-11-02 Kiley [facility] of CO2, GLUCOSE, BUN, CREATININE, CA) 17:39:00 [facility] POCT GLUCOSE (AUTOMATED) 2020-11-02 [facility] of 16:28:00 [facility] POCT GLUCOSE (AUTOMATED) 2020-11-02 [facility] of 16:28:00 [facility] POCT GLUCOSE (AUTOMATED) 2020-11-02 [facility] of 12:37:00 [facility] POCT GLUCOSE (AUTOMATED) 2020-11-02 [facility] of 12:37:00 [facility] CBC WITH DIFF 2020-11-02 Ele Cao [place] of 09:56:00 [facility] BASIC METABOLIC PANEL (NA, K, CL, 2020-11-[address] [facility] CO2, GLUCOSE, BUN, CREATININE, CA) 09:56:00 [facility] VITAMIN B1 (THIAMINE), WHOLE BLOOD 2020-11-02 [facility] of 09:56:00 [facility] MAGNESIUM 2020-11-02 [facility] 09:56:00 [facility] MAGNESIUM 2020-11-02 [facility] 09:56:00 [facility] BASIC METABOLIC PANEL (NA, K, CL, 2020-11-02 [facility] of CO2, GLUCOSE, BUN, CREATININE, CA) 09:56:00 [facility] CBC WITH DIFF 2020-11-02 [facility] of 09:56:00 [facility] VITAMIN B1 (THIAMINE), WHOLE BLOOD 2020-11-02 [facility] of 09:56:00 [facility] POCT GLUCOSE (AUTOMATED) 2020-11-02 nAtonio [facility] of 03:57:00 [facility] POCT GLUCOSE (AUTOMATED) 2020-11-02 [facility] of 03:57:00 [facility] POCT GLUCOSE (AUTOMATED) 2020-11-02 [facility] of 00:42:00 [facility] POCT GLUCOSE (AUTOMATED) 2020-11-02 [facility] of 00:42:00 [facility] ELECTROENCEPHALOGRAM 2020-11-02 [facility] 00:00[facility]00 [facility] ELECTROENCEPHALOGRAM 2020-11-02 [facility]00 [facility] POCT GLUCOSE (AUTOMATED) 2020-11-01 [facility] of 21:46:00 [facility] POCT GLUCOSE (AUTOMATED) 2020-11-01 [facility] of 21:46:00 [facility] POCT GLUCOSE (AUTOMATED) 2020-11-01 [facility] of 20:44:00 [facility] POCT GLUCOSE (AUTOMATED) 2020-11-01 [facility] of 20:44:00 [facility] POCT GLUCOSE (AUTOMATED) 2020-11-01 [facility] of 17:03:00 [facility] POCT GLUCOSE (AUTOMATED) 2020-11-01 [facility] of 17:03:00 [facility] BASIC METABOLIC PANEL (NA, K, CL, 2020-11-01 [facility] CO2, GLUCOSE, BUN, CREATININE, CA) 17:01:00 [facility] PROCALCITONIN 2020-11-[address] [facility] of 17:01:00 [facility] THYROID STIMULATING HORMONE 2020-11-01 [facility] ersity of 17:01:00 [facility] FOLATE 2020-11-01 [facility] of 17:01:00 [facility] VITAMIN B12, LEVEL 2020-11-01 [facility] of 17:01:00 [facility] VITAMIN B12, LEVEL 2020-11-01 [facility] of 17:01:00 [facility] FOLATE 2020-11-01 [facility] of 17:01:00 [facility] THYROID STIMULATING HORMONE 2020-11-01 [facility] ersity of 17:01:00 [facility] BASIC METABOLIC PANEL (NA, K, CL, 2020-11-01 [facility] CO2, GLUCOSE, BUN, CREATININE, CA) 17:01:00 [facility] PROCALCITONIN 2020-11-01 [facility] 17:01:00 [facility] POCT GLUCOSE (AUTOMATED) 2020-11-01 [facility] of 12:51:00 [facility] POCT GLUCOSE (AUTOMATED) 2020-11-01 [facility] of 12:51:00 [facility] CBC WITH DIFF 2020-11-01 Kiley [facility] of 10:21:00 [facility] BASIC METABOLIC PANEL (NA, K, CL, 2020-11-01 Kiley [facility] of CO2, GLUCOSE, BUN, CREATININE, CA) 10:21:00 [facility] POCT GLUCOSE (AUTOMATED) 2020-11-01 [facility] of 10:21:00 [facility] BASIC METABOLIC PANEL (NA, K, CL, 2020-11-01 [facility] CO2, GLUCOSE, BUN, CREATININE, CA) 10:21:00 [facility] CBC WITH DIFF 2020-11-01 [facility] of 10:21:00 [facility] POCT GLUCOSE (AUTOMATED) 2020-11-01 [facility] of 10:21:00 [facility] POCT GLUCOSE (AUTOMATED) 2020-11-01 [facility] of 08:03:00 [facility] POCT GLUCOSE (AUTOMATED) 2020-11-01 [facility] of 08:03:00 [facility] BASIC METABOLIC PANEL (NA, K, CL, 2020-11-01 [facility] of CO2, GLUCOSE, BUN, CREATININE, CA) 05:06:00 [facility] POCT GLUCOSE (AUTOMATED) 2020-11-01 [facility] of 05:06:00 [facility] BASIC METABOLIC PANEL (NA, K, CL, 2020-11-01 [facility] of CO2, GLUCOSE, BUN, CREATININE, CA) 05:06:00 [facility] POCT GLUCOSE (AUTOMATED) 2020-11-01 [facility] of 05:06:00 [facility] POCT GLUCOSE (AUTOMATED) 2020-11-01 [facility] of 02:17:00 [facility] POCT GLUCOSE (AUTOMATED) 2020-11-01 [facility] of 02:17:00 [facility] MR STROKE BRAIN WO CONTRAST 2020-11-01 [facility] ersity of 01:18:51 [facility] MR STROKE BRAIN WO CONTRAST 2020-11-01 [facility] ersity of 01:18:51 [facility] POCT GLUCOSE (AUTOMATED) 2020-10-31 [facility] of 23:26:00 [facility] POCT GLUCOSE (AUTOMATED) 2020-10-31 [facility] of 23:26:00 [facility] POCT GLUCOSE (AUTOMATED) 2020-10-31 [facility] of 16:40:00 [facility] POCT GLUCOSE (AUTOMATED) 2020-10-31 [facility] of 16:40:00 [facility] POCT GLUCOSE (AUTOMATED) 2020-10-31 [facility] of 12:41:00 [facility] POCT GLUCOSE (AUTOMATED) 2020-10-31 [facility] of 12:41:00 [facility] CBC WITHOUT DIFF 2020-10-31 Faru, [facility] of 11:13:00 [facility] CBC WITHOUT DIFF 2020-10-31 Faru, [facility] of 11:13:00 [facility] PREPARE PACKED RBC 2020-10-31 [facility], [facility] of 06:44:13 [facility] PREPARE PACKED RBC 2020-10-31 [facility] of 06:44:13 [facility] HB ABO GROUPING 2020-10-31 [facility], [facility] of 05:48:00 [facility] HB ABO GROUPING 2020-10-31 [facility] of 05:48:00 [facility] POCT GLUCOSE (AUTOMATED) 2020-10-31 [facility] of 05:16:00 [facility] POCT GLUCOSE (AUTOMATED) 2020-10-31 [facility] of 05:16:00 [facility] BASIC METABOLIC PANEL (NA, K, CL, 2020-10-31 Ele Cao [place] of CO2, GLUCOSE, BUN, CREATININE, CA) 04:05:00 [facility] CBC WITH DIFF 2020-10-31 Ele Cao of 04:05:00 [facility] ACTIVATED PARTIAL THRMPLAS [place] 2020-10-31 Bowen Russo niversity of 04:05:00 [facility] MAGNESIUM 2020-10-31 [facility], [facility] of 04:05:00 [facility] MAGNESIUM 2020-10-31 [facility] of 04:05:00 [facility] BASIC METABOLIC PANEL (NA, K, CL, 2020-10-31 Ele Cao [place] of CO2, GLUCOSE, BUN, CREATININE, CA) 04:05:00 [facility] CBC WITH DIFF 2020-10-31 Ele Cao [place] of 04:05:00 [facility] ACTIVATED PARTIAL THRMPLAS [place] 2020-10-31 Bowen Rus[facility] niversity of 04:05:00 [facility] HB ECG ROUTINE & RHYTHM STRIP 2020-10-31 [facility] of 03:58:40 [facility] HB ECG ROUTINE & RHYTHM STRIP 2020-10-31 [facility] of 03:58:40 [facility] POCT GLUCOSE (AUTOMATED) 2020-10-31 [facility] of 01:27:00 [facility] POCT GLUCOSE (AUTOMATED) 2020-10-31 [facility] of 01:27:00 [facility] XR CHEST 1 VW 2020-10-31 [facility] of 01:06:00 [facility] XR CHEST 1 VW 2020-10-31 [facility] of 01:06:00 [facility] POCT GLUCOSE (AUTOMATED) 2020-10-30 [facility] of 22:08:00 [facility] POCT GLUCOSE (AUTOMATED) 2020-10-30 [facility] of 22:08:00 [facility] POCT GLUCOSE (AUTOMATED) 2020-10-30 [facility] of 19:43:00 [facility] POCT GLUCOSE (AUTOMATED) 2020-10-30 [facility] of 19:43:00 [facility] ACTIVATED PARTIAL THRMPLAS [place] 2020-10-30 Bowen Rus[facility] n[facility] of 17:13:00 [facility] ACTIVATED PARTIAL THRMPLAS [place] 2020-10-30 Bowen Russo niversity of 17:13:00 [facility] POCT GLUCOSE (AUTOMATED) 2020-10-30 [facility] of 17:05:00 [facility] POCT GLUCOSE (AUTOMATED) 2020-10-30 [facility] of 17:05:00 [facility] CBC WITHOUT DIFF 2020-10-30 [facility] of 13:57:00 [facility] BASIC METABOLIC PANEL (NA, K, CL, 2020-10-30 Ele Cao [place] of CO2, GLUCOSE, BUN, CREATININE, CA) 13:57:00 [facility] MAGNESIUM 2020-10-30 [facility] 13:57:00 [facility] MAGNESIUM 2020-10-30 K[facility] of 13:57:00 [facility] BASIC METABOLIC PANEL (NA, K, CL, 2020-10-30 [facility] CO2, GLUCOSE, BUN, CREATININE, CA) 13:57:00 [facility] CBC WITHOUT DIFF 2020-10-30 Dianne Kiser [place] of 13:57:00 [facility] POCT GLUCOSE (AUTOMATED) 2020-10-30 [facility] of 12:40:00 [facility] POCT GLUCOSE (AUTOMATED) 2020-10-30 [facility] of 12:40:00 [facility] POCT GLUCOSE (AUTOMATED) 2020-10-30 [facility] of 09:33:00 [facility] POCT GLUCOSE (AUTOMATED) 2020-10-30 [facility] of 09:33:00 [facility] POCT GLUCOSE (AUTOMATED) 2020-10-30 [facility] of 06:23:00 [facility] POCT GLUCOSE (AUTOMATED) 2020-10-30 [facility] of 06:23:00 [facility] BASIC METABOLIC PANEL (NA, K, CL, 2020-10-30 Ele Cao [place] of CO2, GLUCOSE, BUN, CREATININE, CA) 05:24:00 [facility] ACTIVATED PARTIAL THRMPLAS [place] 2020-10-30 Bowen Russo of 05:24:00 [facility] CBC WITH DIFF 2020-10-30 Ele Cao [place] of 05:24:00 [facility] MAGNESIUM 2020-10-[address] [facility] of 05:24:00 [facility] MAGNESIUM 2020-10-[address] [facility] of 05:24:00 [facility] BASIC METABOLIC PANEL (NA, K, CL, 2020-10-30 Ele Cao [place] of CO2, GLUCOSE, BUN, CREATININE, CA) 05:24:00 [facility] CBC WITH DIFF 2020-10-30 Ele Cao [place] of 05:24:00 [facility] ACTIVATED PARTIAL THRMPLAS [place] 2020-10-30 Bowen Russo niversity of 05:24:00 [facility] POCT GLUCOSE (AUTOMATED) 2020-10-30 [facility] of 03:24:00 [facility] POCT GLUCOSE (AUTOMATED) 2020-10-30 [facility] of 03:24:00 [facility] POCT GLUCOSE (AUTOMATED) 2020-10-30 [facility] of 00:45:00 [facility] POCT GLUCOSE (AUTOMATED) 2020-10-30 [facility] of 00:45:00 [facility] POCT GLUCOSE (AUTOMATED) 2020-10-29 [facility] of 22:25:00 [facility] POCT GLUCOSE (AUTOMATED) 2020-10-29 [facility] of 22:25:00 [facility] ACTIVATED PARTIAL THRMPLAS [place] 2020-10-29 Bowen Russo niversity of 20:52:00 [facility] ACTIVATED PARTIAL THRMPLAS [place] 2020-10-29 Bowen Russo niversity of 20:52:00 [facility] BASIC METABOLIC PANEL (NA, K, CL, 2020-10-29 Ele Cao [place] of CO2, GLUCOSE, BUN, CREATININE, CA) 20:08:00 [facility] MAGNESIUM 2020-10-29 Ele Cao [place] of 20:08:00 [facility] MAGNESIUM 2020-10-29 Ele Cao [place] of 20:08:00 [facility] BASIC METABOLIC PANEL (NA, K, CL, 2020-10-29 Kiley [facility] of CO2, GLUCOSE, BUN, CREATININE, CA) 20:08:00 [facility] POCT GLUCOSE (AUTOMATED) 2020-10-29 Espinosa, Univers ity of 19:12:00 Prabhjot Melara [facility] POCT GLUCOSE (AUTOMATED) 2020-10-29 Espinosa, [facility] ity of 19:12:00 Prabhjot Melara [facility] POCT GLUCOSE (AUTOMATED) 2020-10-29 Espinosa, Univers ity of 16:27:00 [facility] POCT GLUCOSE (AUTOMATED) 2020-10-29 [facility] ity of 16:27:00 [facility] TROPONIN I 2020-10-29 [facility] of 15:15:00 [facility] BASIC METABOLIC PANEL (NA, K, CL, 2020-10-29 Kiley [facility] of CO2, GLUCOSE, BUN, CREATININE, CA) 15:15:00 [facility] ACTIVATED PARTIAL THRMPLAS [place] 2020-10-29 Bowen Rus[facility] niversity of 15:15:00 [facility] TROPONIN I 2020-10-29 [facility] 15:15:00 [facility] BASIC METABOLIC PANEL (NA, K, CL, 2020-10-29 Kiley, [facility] of CO2, GLUCOSE, BUN, CREATININE, CA) 15:15:00 [facility] ACTIVATED PARTIAL THRMPLAS [place] 2020-10-29 Bowen Russo niversity of 15:15:00 [facility] POCT GLUCOSE (AUTOMATED) 2020-10-29 [facility] ity of 12:54:00 [facility] POCT GLUCOSE (AUTOMATED) 2020-10-29 [facility] ity of 12:54:00 [facility] XR BONE SURVEY 2020-10-29 [facility] of 09:39:57 [facility] XR BONE SURVEY 2020-10-29 [facility] of 09:39:57 [facility] MRSA / MSSA SCREEN BY PCRBRITNEY 2020-10-29 [facility] of 08:01:00 [facility] MRSA / MSSA SCREEN BY PCRBRITNEY 2020-10-29 Rafaela [facility] of 08:01:00 [facility] TROPONIN I 2020-10-29 Fernando Yuan [facility] 08:00:00 [facility] CBC WITH DIFF 2020-10-29 Kiley [facility] of 08:00:00 [facility] BASIC METABOLIC PANEL (NA, K, CL, 2020-10-29 Kiley [facility] of CO2, GLUCOSE, BUN, CREATININE, CA) 08:00:00 [facility] TROPONIN I 2020-10-29 Fernando Yuan [place] of 08:00:00 [facility] BASIC METABOLIC PANEL (NA, K, CL, 2020-10-29 Ele Cao [place] of CO2, GLUCOSE, BUN, CREATININE, CA) 08:00:00 [facility] CBC WITH DIFF 2020-10-29 Ele Cao [place] of 08:00:00 [facility] POCT GLUCOSE (AUTOMATED) 2020-10-29 [facility] ity of 07:09:00 [facility] POCT GLUCOSE (AUTOMATED) 2020-10-29 [facility] ity of 07:09:00 [facility] POCT GLUCOSE (AUTOMATED) 2020-10-29 [facility] ity of 03:58:00 [facility] POCT GLUCOSE (AUTOMATED) 2020-10-29 [facility] ity of 03:58:00 [facility] TROPONIN I 2020-10-29 [facility] 03:18:00 [facility] CBC WITH DIFF 2020-10-29 [facility] of 03:18:00 [facility] BASIC METABOLIC PANEL (NA, K, CL, 2020-10-29 [facility] of CO2, GLUCOSE, BUN, CREATININE, CA) 03:18:00 [facility] MAGNESIUM 2020-10-29 [facility] of 03:18:00 [facility] MAGNESIUM 2020-10-29 [facility] of 03:18:00 [facility] TROPONIN I 2020-10-29 [facility] 03:18:00 [facility] BASIC METABOLIC PANEL (NA, K, CL, 2020-10-29 [facility], [facility] of CO2, GLUCOSE, BUN, CREATININE, CA) 03:18:00 [facility] CBC WITH DIFF 2020-10-29 [facility], [facility] of 03:18:00 [facility] PROTHROMBIN TIME / INR 2020-10-29 [facility], [facility] y of 03:17:00 [facility] FIBRINOGEN 2020-10-29 [facility], [facility] of 03:17:00 [facility] PROTHROMBIN TIME / INR 2020-10-29 [facility], [facility] y of 03:17:00 [facility] FIBRINOGEN 2020-10-29 [facility], [facility] of 03:17:00 [facility] AC PANEL 20 + LACTIC ACID 2020-10-29 [facility], [facility] sity of 03:09:00 [facility] AC PANEL 20 + LACTIC ACID 2020-10-29 [facility], [facility] sity of 03:09:00 [facility] CT HEAD WO CONTRAST 2020-10-29 [facility], [facility] o f 02:45:23 [facility] CT HEAD WO CONTRAST 2020-10-29 [facility], [facility] o f 02:45:23 [facility] POCT GLUCOSE (AUTOMATED) 2020-10-29 [facility] of 01:09:00 [facility] POCT GLUCOSE (AUTOMATED) 2020-10-29 [facility] of 01:09:00 [facility] POCT GLUCOSE (AUTOMATED) 2020-10-28 [facility] of 21:42:00 [facility] POCT GLUCOSE (AUTOMATED) 2020-10-28 [facility] of 21:42:00 [facility] TRANSTHORACIC ECHO (TTE) COMPLETE 2020-10-28 [facility]/ CONTRAST 20:20:00 [facility] TRANSTHORACIC ECHO (TTE) COMPLETE 2020-10-28 [facility]/ CONTRAST 20:20:00 [facility] POCT GLUCOSE (AUTOMATED) 2020-10-28 [facility] of 16:35:00 [facility] POCT GLUCOSE (AUTOMATED) 2020-10-28 [facility] ity of 16:35:00 [facility] XR CHEST 1 VW 2020-10-28 [facility] 15:19:34 [facility] XR CHEST 1 VW 2020-10-28 [facility] 15:19:34 [facility] HB ECG ROUTINE & RHYTHM STRIP 2020-10-28 Leonel, Un iversity of 14:00:32 [facility] HB ECG ROUTINE & RHYTHM STRIP 2020-10-28 Leonel, Un [facility]versity of 14:00:32 [facility] AC PANEL 20 + LACTIC ACID 2020-10-28 Leonel, Univer sity of 13:52:00 [facility] AC PANEL 20 + LACTIC ACID 2020-10-28 Leonel, Univer sity of 13:52:00 [facility] POCT GLUCOSE (AUTOMATED) 2020-10-28 [facility] of 13:44:00 [facility] POCT GLUCOSE (AUTOMATED) 2020-10-28 [facility] of 13:44:00 [facility] POCT GLUCOSE (AUTOMATED) 2020-10-28 [facility] of 13:15:00 [facility] POCT GLUCOSE (AUTOMATED) 2020-10-28 [facility] of 13:15:00 [facility] POCT GLUCOSE (AUTOMATED) 2020-10-28 [facility] of 10:41:00 [facility] POCT GLUCOSE (AUTOMATED) 2020-10-28 [facility] of 10:41:00 [facility] URINE CULTURE 2020-10-28 [facility] of 07:48:00 [facility] URINE CULTURE 2020-10-28 [facility] of 07:48:00 [facility] TROPONIN I 2020-10-28 [facility] of 07:45:00 [facility] CBC WITHOUT DIFF 2020-10-28 [facility] of 07:45:00 [facility] BASIC METABOLIC PANEL (NA, K, CL, 2020-10-28 [facility] of CO2, GLUCOSE, BUN, CREATININE, CA) 07:45:00 [facility] TROPONIN I 2020-10-28 [facility] of 07:45:00 [facility] BASIC METABOLIC PANEL (NA, K, CL, 2020-10-28 [facility] of CO2, GLUCOSE, BUN, CREATININE, CA) 07:45:00 [facility] CBC WITHOUT DIFF 2020-10-28 [facility] of 07:45:00 [facility] POCT GLUCOSE (AUTOMATED) 2020-10-28 [facility] of 07:37:00 [facility] POCT GLUCOSE (AUTOMATED) 2020-10-28 Antonio Villa P [facility] of 07:37:00 [facility] POCT GLUCOSE (AUTOMATED) 2020-10-28 Antonio [facility] of 04:15:00 [facility] POCT GLUCOSE (AUTOMATED) 2020-10-28 [facility] of 04:15:00 [facility] POCT GLUCOSE (AUTOMATED) 2020-10-28 [facility] of 01:28:00 [facility] POCT GLUCOSE (AUTOMATED) 2020-10-28 [facility] of 01:28:00 [facility] BLOOD CULTURE SCREEN 2020-10-27 [facility] of 23:28:00 [facility] BLOOD CULTURE SCREEN 2020-10-27 [facility] of 23:28:00 [facility] BASIC METABOLIC PANEL (NA, K, CL, 2020-10-27 [facility] of CO2, GLUCOSE, BUN, CREATININE, CA) 21:40:00 [facility] TROPONIN I 2020-10-27 [facility] 21:40:00 [facility] EXTRA TUBE LAV 2020-10-27 [facility] 21:40:00 [facility] TROPONIN I 2020-10-27 [facility] of 21:40:00 [facility] BASIC METABOLIC PANEL (NA, K, CL, 2020-10-27 [facility] of CO2, GLUCOSE, BUN, CREATININE, CA) 21:40:00 [facility] EXTRA TUBE LAV 2020-10-27 [facility] of 21:40:00 [facility] POCT GLUCOSE (AUTOMATED) 2020-10-27 Vonda Starks ity of 21:28:00 [facility] POCT GLUCOSE (AUTOMATED) 2020-10-27 Vonda Starks it[facility] of 21:28:00 [facility] POCT GLUCOSE (AUTOMATED) 2020-10-27 [facility] of 19:12:00 [facility] POCT GLUCOSE (AUTOMATED) 2020-10-27 [facility] of 19:12:00 [facility] POCT GLUCOSE (AUTOMATED) 2020-10-27 [facility] of 16:09:00 [facility] POCT GLUCOSE (AUTOMATED) 2020-10-27 [facility] of 16:09:00 [facility] CBC WITH DIFF 2020-10-27 Jax Austin [place] of 13:09:00 [facility] CBC WITH DIFF 2020-10-27 Norman Jax [place] of 13:09:00 [facility] POCT GLUCOSE (AUTOMATED) 2020-10-27 [facility] of 12:57:00 [facility] POCT GLUCOSE (AUTOMATED) 2020-10-27 Vonda Starks it[facility] of 12:57:00 [facility] BASIC METABOLIC PANEL (NA, K, CL, 2020-10-27 Norman Jax [place] of CO2, GLUCOSE, BUN, CREATININE, CA) 10:57:00 [facility] TROPONIN I 2020-10-27 [facility] of 10:57:00 [facility] TROPONIN I 2020-10-27 [facility] of 10:57:00 [facility] BASIC METABOLIC PANEL (NA, K, CL, 2020-10-27 Norman [facility] of CO2, GLUCOSE, BUN, CREATININE, CA) 10:57:00 [facility] BASIC METABOLIC PANEL (NA, K, CL, 2020-10-27 Norman [facility] of CO2, GLUCOSE, BUN, CREATININE, CA) 05:09:00 [facility] TROPONIN I 2020-10-27 Norman Jax [place] of 05:09:00 [facility] TROPONIN I 2020-10-27 Norman Jax [place] of 05:09:00 [facility] BASIC METABOLIC PANEL (NA, K, CL, 2020-10-27 Norman [facility] of CO2, GLUCOSE, BUN, CREATININE, CA) 05:09:00 [facility] POCT GLUCOSE (AUTOMATED) 2020-10-27 Vonda Starks [facility] of 02:53:00 [facility] POCT GLUCOSE (AUTOMATED) 2020-10-27 [facility] of 02:53:00 [facility] BASIC METABOLIC PANEL (NA, K, CL, 2020-10-26 Jax Austin [place] of CO2, GLUCOSE, BUN, CREATININE, CA) 22:44:00 [facility] BASIC METABOLIC PANEL (NA, K, CL, 2020-10-26 Norman Jax [place] of CO2, GLUCOSE, BUN, CREATININE, CA) 22:44:00 [facility] POCT GLUCOSE (AUTOMATED) 2020-10-26 [facility] of 21:39:00 [facility] POCT GLUCOSE (AUTOMATED) 2020-10-26 [facility]onda Starks [facility] of 21:39:00 [facility] XR ABDOMEN 1 VW 2020-10-26 Norman Jax [place] of 20:25:00 [facility] XR ABDOMEN 1 VW 2020-10-26 [facility] of 20:25:00 [facility] POCT GLUCOSE (AUTOMATED) 2020-10-26 [facility] of 16:55:00 [facility] POCT GLUCOSE (AUTOMATED) 2020-10-26 [facility] of 16:55:00 [facility] POCT GLUCOSE (AUTOMATED) 2020-10-26 [facility] of 12:57:00 [facility] POCT GLUCOSE (AUTOMATED) 2020-10-26 [facility] of 12:57:00 [facility] BASIC METABOLIC PANEL (NA, K, CL, 2020-10-[address] [facility] of CO2, GLUCOSE, BUN, CREATININE, CA) 08:46:00 [facility] CBC WITH DIFF 2020-10-[address] [facility] of 08:46:00 [facility] MAGNESIUM 2020-10-[address] [facility] of 08:46:00 [facility] TROPONIN I 2020-10-[address] [facility] of 08:46:00 [facility] MAGNESIUM 2020-10-[address] [facility] of 08:46:00 [facility] TROPONIN I 2020-10-[address] [facility] of 08:46:00 [facility] BASIC METABOLIC PANEL (NA, K, CL, 2020-10-26 [facility] of CO2, GLUCOSE, BUN, CREATININE, CA) 08:46:00 [facility] CBC WITH DIFF 2020-10-[address] [facility] of 08:46:00 [facility] TROPONIN I 2020-10-26 Katina [facility] of 02:23:00 [facility] TROPONIN I 2020-10-26 Katina [facility] of 02:23:00 [facility] POCT GLUCOSE (AUTOMATED) 2020-10-26 [facility] of 02:22:00 [facility] POCT GLUCOSE (AUTOMATED) 2020-10-26 [facility] of 02:22:00 [facility] POCT GLUCOSE (AUTOMATED) 2020-10-25 [facility] of 23:35:00 [facility] POCT GLUCOSE (AUTOMATED) 2020-10-25 [facility] of 23:35:00 [facility] BASIC METABOLIC PANEL (NA, K, CL, 2020-10-25 [facility] of CO2, GLUCOSE, BUN, CREATININE, CA) 19:50:00 [facility] MAGNESIUM 2020-10-25 [facility] of 19:50:00 [facility] TROPONIN I 2020-10-25 [facility] of 19:50:00 [facility] MAGNESIUM 2020-10-25 [facility] of 19:50:00 [facility] TROPONIN I 2020-10-25 [facility] of 19:50:00 [facility] BASIC METABOLIC PANEL (NA, K, CL, 2020-10-25 [facility] of CO2, GLUCOSE, BUN, CREATININE, CA) 19:50:00 [facility] AC PANEL 20 + LACTIC ACID 2020-10-25 [facility] sity of 19:49:00 [facility] AC PANEL 20 + LACTIC ACID 2020-10-25 [facility] sity of 19:49:00 [facility] HB ECG ROUTINE & RHYTHM STRIP 2020-10-25 Margi Dianne iversity of 19:35:45 [facility] HB ECG ROUTINE & RHYTHM STRIP 2020-10-25 Dianne Kiser iversity of 19:35:45 [facility] AC PANEL 20 + LACTIC ACID 2020-10-25 [facility] of 18:22:00 [facility] AC PANEL 20 + LACTIC ACID 2020-10-25 Rafaela, [facility] of 18:22:00 [facility] POCT GLUCOSE (AUTOMATED) 2020-10-25 [facility] of 17:15:00 [facility] POCT GLUCOSE (AUTOMATED) 2020-10-25 [facility] of 17:15:00 [facility] AC PANEL 20 + LACTIC ACID 2020-10-25 Rafaela, [facility] of 15:21:00 [facility] AC PANEL 20 + LACTIC ACID 2020-10-25 Rafaela, [facility] of 15:21:00 [facility] POCT GLUCOSE (AUTOMATED) 2020-10-25 [facility] of 12:42:00 [facility] POCT GLUCOSE (AUTOMATED) 2020-10-25 [facility] of 12:42:00 [facility] CBC WITH DIFF 2020-10-25 Jax Austin of 08:27:00 [facility] BASIC METABOLIC PANEL (NA, K, CL, 2020-10-25 Jax Austin [place] of CO2, GLUCOSE, BUN, CREATININE, CA) 08:27:00 [facility] MAGNESIUM 2020-10-25 Jax Austin [place] of 08:27:00 [facility] MAGNESIUM 2020-10-25 Jax Austin [place] of 08:27:00 [facility] BASIC METABOLIC PANEL (NA, K, CL, 2020-10-25 Jax Austin [place] of CO2, GLUCOSE, BUN, CREATININE, CA) 08:27:00 [facility] CBC WITH DIFF 2020-10-25 Jax Austin [place] of 08:27:00 [facility] POCT GLUCOSE (AUTOMATED) 2020-10-25 [facility] of 01:28:00 [facility] POCT GLUCOSE (AUTOMATED) 2020-10-25 [facility] of 01:28:00 [facility] POCT GLUCOSE (AUTOMATED) 2020-10-24 [facility] St[facility] of 21:35:00 [facility] POCT GLUCOSE (AUTOMATED) 2020-10-24 [facility]onda Starks [facility] of 21:35:00 [facility] CT HEAD WO CONTRAST 2020-10-24 Jax Austin o f 19:12:[address] [facility] [address] HEAD WO CONTRAST 2020-10-24 Jax Austin [facility] o f 19:12:43 [facility] POCT GLUCOSE (AUTOMATED) 2020-10-24 [facility] of 16:51:00 [facility] POCT GLUCOSE (AUTOMATED) 2020-10-24 [facility] of 16:51:00 [facility] CT THORAX W CONTRAST 2020-10-24 Jax Austin of 14:08:31 [facility] CT THORAX W CONTRAST 2020-10-24 Jax Austin [place] of 14:08:31 [facility] CT ABDOMEN PELVIS W CONTRAST 2020-10-24 Jax Austin [facility] vers[facility] of 14:06:06 [facility] CT ABDOMEN PELVIS W CONTRAST 2020-10-24 Jax Austin [facility] of 14:06:06 [facility] POCT GLUCOSE (AUTOMATED) 2020-10-24 [facility]onda Starks [facility] of 12:42:00 [facility] POCT GLUCOSE (AUTOMATED) 2020-10-24 [facility] Starks [facility] of 12:42:00 [facility] MAGNESIUM 2020-10-24 kelechi [facility] of 09:41:00 [facility] BASIC METABOLIC PANEL (NA, K, CL, 2020-10-24 [facility] of CO2, GLUCOSE, BUN, CREATININE, CA) 09:41:00 [facility] CBC WITH DIFF 2020-10-24 kelechi [facility] of 09:41:00 [facility] MAGNESIUM 2020-10-24 kelechi [facility] of 09:41:00 [facility] BASIC METABOLIC PANEL (NA, K, CL, 2020-10-24 [facility] of CO2, GLUCOSE, BUN, CREATININE, CA) 09:41:00 [facility] CBC WITH DIFF 2020-10-24 Baron Villatoro [place] of 09:41:00 [facility] AUTHORIZATION FOR RELEASE OF PHI 2020-10-24 [facility] of 05:01:00 Unassigned, No [facility] AUTHORIZATION FOR RELEASE OF PHI 2020-10-24 [facility] of 05:01:00 Unassigned, No [facility] POCT GLUCOSE (AUTOMATED) 2020-10-24 [facility] of 01:01:00 [facility] POCT GLUCOSE (AUTOMATED) 2020-10-24 [facility] of 01:01:00 [facility] POCT GLUCOSE (AUTOMATED) 2020-10-23 [facility] of 23:29:00 [facility] POCT GLUCOSE (AUTOMATED) 2020-10-23 [facility] of 23:29:00 [facility] POCT GLUCOSE (AUTOMATED) 2020-10-23 [facility] St[facility] of 18:06:00 [facility] POCT GLUCOSE (AUTOMATED) 2020-10-23 [facility]onda Starks [facility] of 18:06:00 [facility] CBC WITH DIFF 2020-10-23 [facility] 13:08:00 [facility] CBC WITH DIFF 2020-10-23 [facility] 13:08:00 [facility] POCT GLUCOSE (AUTOMATED) 2020-10-23 [facility] Starks [facility] of 13:06:00 [facility] POCT GLUCOSE (AUTOMATED) 2020-10-23 [facility] Starks [facility] of 13:06:00 [facility] PREPARE PACKED RBC 2020-10-23 Ele Cao of 10:02:05 [facility] PREPARE PACKED RBC 2020-10-23 Ele Cao of 10:02:05 [facility] CBC WITH DIFF 2020-10-23 Jax Austin [place] of 08:46:00 [facility] BASIC METABOLIC PANEL (NA, K, CL, 2020-10-23 Jax Austin [place] of CO2, GLUCOSE, BUN, CREATININE, CA) 08:46:00 [facility] MAGNESIUM 2020-10-23 Ele Cao [place] of 08:46:00 [facility] MAGNESIUM 2020-10-23 K[facility] of 08:46:00 [facility] BASIC METABOLIC PANEL (NA, K, CL, 2020-10-23 Jax Austin of CO2, GLUCOSE, BUN, CREATININE, CA) 08:46:00 [facility] CBC WITH DIFF 2020-10-23 Jax Austin of 08:46:00 [facility] TROPONIN I 2020-10-22 Jax Austin of 22:48:00 [facility] CBC WITH DIFF 2020-10-22 Jax Austin of 22:48:00 [facility] TROPONIN I 2020-10-22 Jax Austin of 22:48:00 [facility] CBC WITH DIFF 2020-10-22 Jax Austin of 22:48:00 [facility] XR ABDOMEN 1 VW 2020-10-22 Jax Austin of 22:32:58 [facility] XR ABDOMEN 1 VW 2020-10-22 Jax Austin of 22:32:58 [facility] GLYCOSYLATED HEMOGLOBIN (A1C) 2020-10-22 Jax Austin iversity of 18:10:00 [facility] IRON PANEL 2020-10-22 Jax Austin of 18:10:00 [facility] IRON PANEL 2020-10-22 Jax Austin of 18:10:00 [facility] GLYCOSYLATED HEMOGLOBIN (A1C) 2020-10-22 Jax Austin Un iversity of 18:10:00 [facility] XR CHEST 1 VW 2020-10-22 Jax Austin of 17:58:02 [facility] XR CHEST 1 VW 2020-10-22 Jax Austin of 17:58:02 [facility] AC PANEL 20 + LACTIC ACID 2020-10-22 Jax Austin [facility] sity of 17:30:00 [facility] AC PANEL 20 + LACTIC ACID 2020-10-22 [facility] 17:30:00 [facility] BLOOD CULTURE SCREEN 2020-10-22 Jax Austin of 17:17:00 [facility] BLOOD CULTURE SCREEN 2020-10-22 Jax Austin of 17:17:00 [facility] URINALYSIS 2020-10-22 Jax Austin of 16:59:00 [facility] URINE CULTURE 2020-10-22 Jax Austin [place] of 16:59:00 [facility] BASIC METABOLIC PANEL (NA, K, CL, 2020-10-22 Jax Austin of CO2, GLUCOSE, BUN, CREATININE, CA) 16:59:00 [facility] CBC WITH DIFF 2020-10-22 Jax Austin of 16:59:00 [facility] FIBRINOGEN 2020-10-22 Jax Austin [place] of 16:59:00 [facility] PROTHROMBIN TIME / INR 2020-10-22 Jax Austin [facility] of 16:59:00 [facility] HEPATIC FUNCTION PANEL ([id number]) 2020-10-22 Jax Austin niversity of (ALB,T.PRO,BILI 16:59:00 [facility],BU/BC,ALT,AST,ALK PHOS) [place] FERRITIN SERUM 2020-10-22 Jax Austin of 16:59:00 [facility] TROPONIN I 2020-10-22 Jax Austin of 16:59:00 [facility] FERRITIN SERUM 2020-10-22 Jax Austin [place] of 16:59:00 [facility] TROPONIN I 2020-10-22 Jax Austin [place] of 16:59:00 [facility] HEPATIC FUNCTION PANEL ([id number]) 2020-10-22 Jax Austin niversity of (ALB,T.PRO,BILI 16:59:00 [facility],BU/BC,ALT,AST,ALK PHOS) [place] BASIC METABOLIC PANEL (NA, K, CL, 2020-10-22 Jax Austin of CO2, GLUCOSE, BUN, CREATININE, CA) 16:59:00 [facility] CBC WITH DIFF 2020-10-22 Jax Austin of 16:59:00 [facility] PROTHROMBIN TIME / INR 2020-10-22 Jax Austin [facility] of 16:59:00 [facility] FIBRINOGEN 2020-10-22 Jax Austin [place] of 16:59:00 [facility] URINALYSIS 2020-10-22 Jxa Austin of 16:59:00 [facility] URINE CULTURE 2020-10-22 Jax Austin [place] of 16:59:00 [facility] MRSA / MSSA SCREEN BY PCRBRITNEY 2020-10-22 Jax Austin of 16:45:00 [facility] MRSA / MSSA SCREEN BY PCR, BRITNEY 2020-10-22 Jax Austin of 16:45:00 [facility] HB ECG ROUTINE & RHYTHM STRIP 2020-10-22 Jax Austin Un iversity of 16:40:04 [facility] HB ECG ROUTINE & RHYTHM STRIP 2020-10-22 Jax Austin iversity of 16:40:04 [facility] HB ABO GROUPING 2020-10-22 Jax Austin of 16:30:00 [facility] HB ABO GROUPING 2020-10-22 Jax Austin [place] of 16:30:00 [facility] HOSPITAL ADMISSION 2020-10-22 [facility] of 05:01:00 Unassigned, No [facility] HOSPITAL ADMISSION 2020-10-22 [facility] of 05:01:00 Unassigned, No [facility] REFERRAL- REQUEST/RESPONSE 2020-07-04 [facility] rsity of 06:01:00 Unassigned, No [facility] TROPONIN I 2020-05-03 [facility] of 19:53:00 [facility] HEPATIC FUNCTION PANEL ([id number]) 2020-05-03 [facility] of (ALB,T.PRO,BILI 19:53:00 [facility],BU/BC,ALT,AST,ALK PHOS) [place] BASIC METABOLIC PANEL (NA, K, CL, 2020-05-03 [facility] of CO2, GLUCOSE, BUN, CREATININE, CA) 19:53:00 [facility] CBC WITH DIFF 2020-05-03 [facility] of 19:53:00 [facility] N-TERMINAL PRO-BNP 2020-05-03 [facility] o f 19:53:00 [facility] HB ABO GROUPING 2020-05-03 [facility] of 19:52:00 [facility] EKG-12 LEAD 2020-05-03 [facility] of 19:00:54 [facility] CONSENT/REFUSAL FOR DIAGNOSIS AND 2020-05-03 [facility] TREATMENT 18:25:10 Unassigned, No [facility] MEDICAL RELEASE/CLEARANCE FORMS 2019-11-16 [facility] 05:01:00 Unassigned, No [facility] POCT GLUCOSE (AUTOMATED) 2019-10-28 Faustino Mason [facility] of 12:52:00 [facility] URIC ACID 2019-10-28 Faustino Mason of 09:13:00 [facility] COMP. METABOLIC PANEL ([id number]) 2019-10-28 Faustino Mason iversity of 09:13:00 [facility] CBC WITH DIFFERENTIAL 2019-10-28 Faustino Mason of 09:13:00 [facility] N-TERMINAL PRO-BNP 2019-10-28 Marlon, Faustino [place] of 09:13:00 [facility] POCT GLUCOSE (AUTOMATED) 2019-10-28 Marlon, Faustino [facility] it[facility] of 01:54:00 [facility] POCT GLUCOSE (AUTOMATED) 2019-10-27 [facility] ity of 21:06:00 [facility] POCT GLUCOSE (AUTOMATED) 2019-10-27 Marlon, [facility] of 16:18:00 [facility] TROPONIN I 2019-10-27 Faustino Mason [place] of 15:00:00 [facility] PROFILE / HEMOGRAM 2019-10-27 Faustino Mason [place] of 15:00:00 [facility] POCT GLUCOSE (AUTOMATED) 2019-10-27 Marlon, Faustino [facility] ity of 14:34:00 [facility] POCT GLUCOSE (AUTOMATED) 2019-10-27 Marlon, [facility] of 12:39:00 [facility] URINALYSIS 2019-10-27 Faustino Mason of 10:46:00 [facility] POCT GLUCOSE (AUTOMATED) 2019-10-27 Faustino Mason [facility] it[facility] of 10:46:00 [facility] UREA NITROGEN, URINE RANDOM 2019-10-27 Faustino Mason [facility] ersity of 10:46:00 [facility] SODIUM, URINE RANDOM 2019-10-27 Faustino Mason of 10:46:00 [facility] PROTEIN CREAT RATIO URINE RANDOM 2019-10-27 [facility] 10:46:00 [facility] [facility] URIC ACID 2019-10-27 Faustino Mason [place] of 09:10:00 [facility] MAGNESIUM 2019-10-27 [facility]:10[facility]00 [facility] TROPONIN I 2019-10-27 Faustino Mason [place] of 09:10:00 [facility] COMP. METABOLIC PANEL ([id number]) 2019-10-27 Faustino Mason Un iversity of 09:10:00 [facility] SEDIMENTATION RATE 2019-10-27 Faustino Mason [place] of 09:10:00 [facility] CBC WITH DIFFERENTIAL 2019-10-27 Faustino Mason [place] of 09:10:00 [facility] N-TERMINAL PRO-BNP 2019-10-27 [facility] 09:10[facility]00 [facility] POCT GLUCOSE (AUTOMATED) 2019-10-27 [facility] of 08:44:00 [facility] POCT GLUCOSE (AUTOMATED) 2019-10-27 [facility] of 06:32:00 [facility] POCT GLUCOSE (AUTOMATED) 2019-10-27 Aisha Bah Univer sity of 05:30:00 [facility] CBC WITH DIFFERENTIAL 2019-10-27 Aisha Bah Universit y of 04:30:00 [facility] GLYCOSYLATED HEMOGLOBIN (A1C) 2019-10-27 Faustino Mason Un iversity of 04:30:00 [facility] CORONAVIRUS COVID-19 TESTING 2019-10-27 Aisha Bah Un iversity of 04:30:00 [facility] POCT GLUCOSE (AUTOMATED) 2019-10-27 Aisha Bah Univer sity of 04:29:00 [facility] POCT GLUCOSE (AUTOMATED) 2019-10-27 Aisha Bah Univer sity of 03:32:00 [facility] POCT GLUCOSE (AUTOMATED) 2019-10-27 Aisha Bah Univer sity of 02:53:00 [facility] PHOSPHORUS 2019-10-27 Faustino Mason [place] of 02:47:00 [facility] CREATINE KINASE 2019-10-27 Faustino Mason [place] of 02:47:00 [facility] URIC ACID 2019-10-27 Faustino Mason [place] of 02:47:00 [facility] LIPASE 2019-10-27 [facility] of 02:47:00 [facility] MAGNESIUM 2019-10-27 Marlon [facility] of 02:47:00 [facility] FERRITIN SERUM 2019-10-27 [facility] of 02:47:00 [facility] TROPONIN I 2019-10-27 [facility] of 02:47:00 [facility] HEPATIC FUNCTION PANEL ([id number]) 2019-10-27 Marlon andrzej niversity of (ALB,T.PRO,BILI 02:47:00 [facility],BU/BC,ALT,AST,ALK PHOS) [place] BASIC METABOLIC PANEL (NA, K, CL, 2019-10-27 [facility] of CO2, GLUCOSE, BUN, CREATININE, CA) 02:47:00 [facility] LIPID PANEL ([id number])(TOTAL 2019-10-27 [facility] sity of CHOLESTEROL, TRIGLYCERIDES, HDL) 02:47:00 [facility] EKG-12 LEAD 2019-10-27 [facility] of 02:12:49 [facility] EKG-12 LEAD 2019-10-27 [facility] of 01:34:49 [facility] URIC ACID 2019-10-26 [facility] of 20:20:00 [facility] IRON PANEL 2019-10-26 [facility] of 20:20:00 [facility] ASSIGNMENT OF BENEFITS 2019-10-26 Doctor Universit y of 19:55:10 Unassigned, No [facility] POCT GLUCOSE (AUTOMATED) 2019-10-01 Pritesh Sunshine [facility] sity of 16:41:00 [facility] BASIC METABOLIC PANEL (NA, K, CL, 2019-10-01 Lauro Mcneil [place] of CO2, GLUCOSE, BUN, CREATININE, CA) 12:53:00 [facility] POCT GLUCOSE (AUTOMATED) 2019-10-01 [facility] 12:18:00 [facility] POCT GLUCOSE (AUTOMATED) 2019-10-01 [facility] 01:51:00 [facility] POCT GLUCOSE (AUTOMATED) 2019-09-30 [facility] of 21:28:00 [facility] POCT GLUCOSE (AUTOMATED) 2019-09-30 Pritesh Sunshine [facility] sity of 16:51:00 [facility] POCT GLUCOSE (AUTOMATED) 2019-09-30 [facility] 12:41:00 [facility] OCCULT (GUAIAC) BLOOD 2019-09-30 [facility] of 09:00:00 [facility] MAGNESIUM 2019-09-30 [facility] of 08:25:00 [facility] BASIC METABOLIC PANEL (NA, K, CL, 2019-09-30 [facility] of CO2, GLUCOSE, BUN, CREATININE, CA) 08:25:00 [facility] CT THORAX WO CONTRAST 2019-09-30 [facility] of 02:53:31 [facility] URINALYSIS 2019-09-30 Brennan, [facility] of 02:28:00 [facility] EXTRA TUBE URINE CULTURE 2019-09-30 [facility] of 02:28:00 [facility] POCT GLUCOSE (AUTOMATED) 2019-09-30 Pritesh Sunshine [facility] sity of 01:26:00 [facility] XR CHEST 1 VW 2019-09-29 [facility] 22:13:05 [facility] XR FOOT 3+ VW RIGHT 2019-09-29 Anu [facility] of 22:13:05 [facility] TROPONIN I 2019-09-29 Anu [facility] of 21:57:00 [facility] HEPATIC FUNCTION PANEL ([id number]) 2019-09-29 Chong Brennan niversity of (ALB,T.PRO,BILI 21:57:00 [facility],BU/BC,ALT,AST,ALK PHOS) [place] BASIC METABOLIC PANEL (NA, K, CL, 2019-09-29 Brennan, Nyfrancisco [place] of CO2, GLUCOSE, BUN, CREATININE, CA) 21:57:00 [facility] CBC WITH DIFFERENTIAL 2019-09-29 Chong Brennan [place] of 21:57:00 [facility] PROTHROMBIN TIME / INR 2019-09-29 [facility] of 21:57:00 [facility] ACTIVATED PARTIAL THRMPLAS CARLTON 2019-09-29 Chong Brennan U niversity of 21:57:00 [facility] N-TERMINAL PRO-BNP 2019-09-29 Brennan, [facility] of 21:57:00 [facility] EKG-12 LEAD 2019-09-29 Brennan, [facility] of 21:47:42 [facility] COMP. METABOLIC PANEL ([id number]) 2019-09-29 Igor Borrego Un iversity of 15:14:00 [facility] CBC WITH DIFFERENTIAL 2019-09-29 [place] [facility] of 15:14:00 [facility] XR CHEST 2 VW 2019-09-29 [place], [facility] of 14:58:38 [facility] CONSENT/REFUSAL FOR DIAGNOSIS AND 2019-09-29 Doctor [facility] 14:13:28 Unassigned, No [facility] ASSIGNMENT OF BENEFITS 2019-09-29 Doctor [facility] y of 14:13:08 Unassigned, No [facility] REFERRAL OCCUPATIONAL THERAPY 2019-09-28 Gilberto Byrne Un iversity of 00:00:00 [facility] [B] CMP 2019-09-28 University 00:00:00 [facility] [B] CBC 2019-09-28 University of 00:00:00 [facility] ASSIGNMENT OF BENEFITS 2019-09-21 Doctor [facility] y of 18:05:04 Unassigned, No [facility] CONSENT/REFUSAL FOR DIAGNOSIS AND 2019-09-21 [facility] 18:03:13 Unassigned, No [facility] NOTICE OF BILLING PRACTICES FOR 2019-09-21 Doctor University of MEDICARE PATIENTS 18:02:38 Unassigned, No [facility] CONSENT TO PHOTOGRAPH 2019-09-21 [facility] of 05:01:00 Unassigned, No [facility] REFERRAL OCCUPATIONAL THERAPY 2019-09-21 Gilberto Byrne Un iversity of 00:00:00 [facility] XR CHEST 2 VW 2019-09-19 Gisselle Kwon [place] of 01:24:42 [facility] POCT GLUCOSE (AUTOMATED) 2019-09-15 Abu Atherah, Univers ity of 17:47:00 Wayne [facility] BASIC METABOLIC PANEL (NA, K, CL, 2019-09-15 Derrick Curiel [place] [address], GLUCOSE, BUN, CREATININE, CA) 16:59:00 [facility] CBC WITH DIFFERENTIAL 2019-09-15 [facility] of 16:59:00 [facility] POCT GLUCOSE (AUTOMATED) 2019-09-15 [facility], [facility] ity of 13:32:00 [facility] POCT GLUCOSE (AUTOMATED) 2019-09-15 [facility], [facility] ity of 03:19:00 [facility] POCT GLUCOSE (AUTOMATED) 2019-09-14 [facility], [facility] ity of 22:25:00 [facility] POCT GLUCOSE (AUTOMATED) 2019-09-14 [facility], [facility] ity of 17:45:00 [facility] XR CHEST 1 VW 2019-09-14 [facility] of 13:58:44 [facility] POCT GLUCOSE (AUTOMATED) 2019-09-14 [facility], [facility] ity of 13:29:00 [facility] MAGNESIUM 2019-09-14 [facility] of 09:47:00 [facility] BASIC METABOLIC PANEL (NA, K, CL, 2019-09-14 [facility] CO2, GLUCOSE, BUN, CREATININE, CA) 09:47:00 [facility] EXTRA TUBE LT. GREEN 2019-09-14 [facility] of 09:47:00 [facility] POCT GLUCOSE (AUTOMATED) 2019-09-14 [facility], Univers ity of 08:10:00 [facility] POCT GLUCOSE (AUTOMATED) 2019-09-14 [facility], Univers ity of 02:18:00 [facility] POCT GLUCOSE (AUTOMATED) 2019-09-13 [facility] ity of 23:04:00 [facility] POCT GLUCOSE (AUTOMATED) 2019-09-13 [facility], [facility] ity of 17:43:00 [facility] POCT GLUCOSE (AUTOMATED) 2019-09-13 [facility] ity of 13:11:00 [facility] SPUTUM CULTURE 2019-09-13 [facility] of 12:07:00 [facility] MAGNESIUM 2019-09-13 [facility] of 09:51:00 [facility] BASIC METABOLIC PANEL (NA, K, CL, 2019-09-13 Albustami, Aurea r University of CO2, GLUCOSE, BUN, CREATININE, CA) 09:51:00 [facility] CBC WITH DIFFERENTIAL 2019-09-13 [facility] of 09:51:00 [facility] POCT GLUCOSE (AUTOMATED) 2019-09-13 Abu Ather, Univers ity of 02:18:00 [facility] MAGNESIUM 2019-09-13 [facility] of 00:05:00 [facility] TROPONIN I 2019-09-13 [facility] of 00:05:00 [facility] PROCALCITONIN 2019-09-13 [facility] of 00:05:00 [facility] POCT GLUCOSE (AUTOMATED) 2019-09-12 [facility], Univers ity of 22:24:00 [facility] POCT GLUCOSE (AUTOMATED) 2019-09-12 Sang Leal ity of 19:31:00 [facility] ACTIVATED PARTIAL THRMPLAS CARLTON 2019-09-12 Sang Leal U niversity of 18:05:00 [facility] EKG-12 LEAD 2019-09-12 Singer [facility] of 16:53:02 [facility] BLOOD CULTURE SCREEN 2019-09-12 Singer [facility] of 16:25:00 [facility] LACTIC ACID WHOLE BLOOD 2019-09-12 Sang Leali ty of 16:11:00 [facility] BLOOD CULTURE SCREEN 2019-09-12 Singer [facility] of 16:10:00 [facility] PROTHROMBIN TIME / INR 2019-09-12 Sang Lealit y of 15:45:00 [facility] CBC WITH DIFFERENTIAL 2019-09-12 Sang Leal [place] of 15:39:00 [facility] XR CHEST 1 VW 2019-09-12 Singer [facility] of 15:34:44 [facility] POCT GLUCOSE (AUTOMATED) 2019-09-12 Sang Leal ity of 15:24:00 [facility] LIPASE 2019-09-12 Singer [facility] of 15:21:00 [facility] MAGNESIUM 2019-09-12 Singer [facility] of 15:21:00 [facility] TROPONIN I 2019-09-12 Singer [facility] of 15:21:00 [facility] COMP. METABOLIC PANEL ([id number]) 2019-09-12 Sang Leal iversity of 15:21:00 [facility] N-TERMINAL PRO-BNP 2019-09-12 Singer [facility] of 15:21:00 [facility] EKG-12 LEAD 2019-09-12 Leal, [facility] of 15:17:38 [facility] EMERGENCY SERVICES AGREEMENTS AND 2019-09-12 [facility] University of AUTHORIZATIONS 06:01:00 Unassigned, No [facility] POCT GLUCOSE (AUTOMATED) 2019-09-07 Alnas, Majd Univers ity of 18:10:00 [facility] POCT GLUCOSE (AUTOMATED) 2019-09-07 Alnas, Majd Univers ity of 14:24:00 [facility] POCT GLUCOSE (AUTOMATED) 2019-09-07 Alnas, Majd Univers ity of 02:48:00 [facility] POCT GLUCOSE (AUTOMATED) 2019-09-06 Alnas, Majd Univers ity of 23:24:00 [facility] POCT GLUCOSE (AUTOMATED) 2019-09-06 Alnas, Majd Univers ity of 18:22:00 [facility] POCT GLUCOSE (AUTOMATED) 2019-09-06 Alnas, Majd Univers ity of 13:58:00 [facility] PHOSPHORUS 2019-09-06 [facility] of 07:01:00 [facility] BASIC METABOLIC PANEL (NA, K, CL, 2019-09-06 [facility] Aurea [facility] of CO2, GLUCOSE, BUN, CREATININE, CA) 07:01:00 [facility] CBC WITH DIFFERENTIAL 2019-09-06 [facility] of 07:01:00 [facility] POCT GLUCOSE (AUTOMATED) 2019-09-06 Alnas, Majd Univers ity of 01:21:00 [facility] POCT GLUCOSE (AUTOMATED) 2019-09-05 Alnas, Majd Univers ity of 23:00:00 [facility] POCT GLUCOSE (AUTOMATED) 2019-09-05 Alnas, Majd Univers ity of 18:39:00 [facility] POCT GLUCOSE (AUTOMATED) 2019-09-05 Alnas, Majd Univers ity of 13:46:00 [facility] XR CHEST 1 VW 2019-09-05 [facility] 11:35:00 [facility] 2019-09-05 [facility] [place] of 09:46:00 [facility] MAGNESIUM 2019-09-05 [facility] [place] of 09:46:00 [facility] BASIC METABOLIC PANEL (NA, K, CL, 2019-09-05 [facility] of CO2, GLUCOSE, BUN, CREATININE, CA) 09:46:00 [facility] CBC WITH DIFFERENTIAL 2019-09-05 [facility] of 09:46:00 [facility] POCT GLUCOSE (AUTOMATED) 2019-09-05 [facility] ity of 05:57:00 [facility] POCT GLUCOSE (AUTOMATED) 2019-09-05 Gris, Radheshyam Unive rsity of 03:18:00 [facility] POCT GLUCOSE (AUTOMATED) 2019-09-05 Gris, Radheshyam Unive rsity of 02:54:00 [facility] POCT GLUCOSE (AUTOMATED) 2019-09-04 Gris, Radheshyam Unive rsity of 22:13:00 [facility] POCT GLUCOSE (AUTOMATED) 2019-09-04 Gris, Radheshyam Unive rsity of 17:58:00 [facility] POCT GLUCOSE (AUTOMATED) 2019-09-04 Gris, Radheshyam Unive rsity of 14:17:00 [facility] IONIZED CALCIUM 2019-09-04 Smith Giron [place] of 12:48:00 [facility] EKG-12 LEAD 2019-09-04 [place] [facility] 11:31:27 [facility] XR CHEST 1 VW 2019-09-04 [place] [facility] 11:20:00 [facility] POCT GLUCOSE (AUTOMATED) 2019-09-04 Gris, Radheshyam Unive rsity of 10:48:00 [facility] MAGNESIUM 2019-09-04 [place] [facility] 10:45:00 [facility] BASIC METABOLIC PANEL (NA, K, CL, 2019-09-04 [facility], GLUCOSE, BUN, CREATININE, CA) 10:45:00 [facility] CBC WITH DIFFERENTIAL 2019-09-04 [place] [facility] 10:45:00 [facility] POCT GLUCOSE (AUTOMATED) 2019-09-04 Gris, Radheshyam Unive rsity of 09:08:00 [facility] POCT GLUCOSE (AUTOMATED) 2019-09-04 Gris, Radheshyam Unive rsity of 05:33:00 [facility] POCT GLUCOSE (AUTOMATED) 2019-09-04 Gris, Radheshyam Unive rsity of 03:33:00 [facility] POCT GLUCOSE (AUTOMATED) 2019-09-04 Gris, Radheshyam Unive rsity of 01:47:00 [facility] POCT GLUCOSE (AUTOMATED) 2019-09-04 Gris, Radheshyam Unive rsity of 01:29:00 [facility] POCT GLUCOSE (AUTOMATED) 2019-09-03 Gris, Radheshyam Unive rsity of 23:26:00 [facility] XR CHEST 1 VW 2019-09-03 [place], [facility] of 22:20:00 [facility] POCT GLUCOSE (AUTOMATED) 2019-09-03 Gris, Radheshyam Unive rsity of 22:05:00 [facility] POCT GLUCOSE (AUTOMATED) 2019-09-03 Gris, Radheshyam Unive rsity of 17:27:00 [facility] POCT GLUCOSE (AUTOMATED) 2019-09-03 Gris, Radheshyam Unive rsity of 14:41:00 [facility] XR CHEST 1 VW 2019-09-03 Counts include 234 beds at the [facility] 11:25:00 [facility] EKG-12 LEAD 2019-09-03 [place], [facility] 11:12:03 [facility] MAGNESIUM 2019-09-03 Counts include 234 beds at the [facility] 09:41:00 [facility] BASIC METABOLIC PANEL (NA, K, CL, 2019-09-03 [facility] of CO2, GLUCOSE, BUN, CREATININE, CA) 09:41:00 [facility] CBC WITH DIFFERENTIAL 2019-09-03 Counts include 234 beds at the [facility] 09:40:00 [facility] POCT GLUCOSE (AUTOMATED) 2019-09-03 Gris, Radheshyam Unive rsity of 09:04:00 [facility] POCT GLUCOSE (AUTOMATED) 2019-09-03 Gris, Radheshyam Unive rsity of 06:01:00 [facility] POCT GLUCOSE (AUTOMATED) 2019-09-03 Megan Landry Unive rsity of 01:24:00 [facility] POCT GLUCOSE (AUTOMATED) 2019-09-02 Susana Landryam Unive rsity of 22:05:00 [facility] POCT GLUCOSE (AUTOMATED) 2019-09-02 Gris, Radhumzaam Unive rsity of 18:41:00 [facility] POCT GLUCOSE (AUTOMATED) 2019-09-02 Esther Landrycipriano Unive rsity of 13:45:00 [facility] XR CHEST 1 VW 2019-09-02 [facility] of 12:20:00 [facility] POCT GLUCOSE (AUTOMATED) 2019-09-02 Megan Landrye rsity of 10:14:00 [facility] PHOSPHORUS 2019-09-02 RiMario monroy [place] of 07:23:00 [facility] MAGNESIUM 2019-09-02 [facility] of 07:23:00 [facility] HEPATIC FUNCTION PANEL ([id number]) 2019-09-02 Mario Lewis niversity of (ALB,T.PRO,BILI 07:23:00 [facility],BU/BC,ALT,AST,ALK PHOS[facility] BASIC METABOLIC PANEL (NA, K, CL, 2019-09-02 RiMario monroy [place] of CO2, GLUCOSE, BUN, CREATININE, CA) 07:23:00 [facility] PROFILE / HEMOGRAM 2019-09-02 Mario Lewis [place] of 07:23:00 [facility] ABG+COOX+NA+K+GLU+CA2+ 2019-09-02 [facility] y of 07:22:00 [facility] POCT GLUCOSE (AUTOMATED) 2019-09-02 Megan Landrye rsity of 06:27:00 [facility] POCT GLUCOSE (AUTOMATED) 2019-09-02 Megan Landrye rsity of 05:03:00 [facility] AC PANEL 20 + LACTIC ACID 2019-09-02 [place], Shuab Univer sity of 03:02:00 [facility] POCT GLUCOSE (AUTOMATED) 2019-09-02 Megan Landry Unive rsity of 01:18:00 [facility] POCT GLUCOSE (AUTOMATED) 2019-09-01 Gris [facility] [address] rsity of 23:54:00 [facility] PHOSPHORUS 2019-09-01 [place], [facility] of 23:32:00 [facility] MAGNESIUM 2019-09-01 [place], [facility] of 23:32:00 [facility] BASIC METABOLIC PANEL (NA, K, CL, 2019-09-01 [place], [facility] of CO2, GLUCOSE, BUN, CREATININE, CA) 23:32:00 [facility] ACTIVATED PARTIAL THRMPLAS CARLTON 2019-09-01 [place], uab U niversity of 23:32:00 [facility] ABG+COOX+NA+K+GLU+CA2+ 2019-09-01 [facility] y of 23:31:00 [facility] MRSA / MSSA SCREEN BY PCR, BRITNEY 2019-09-01 [facility] of 23:12:00 [facility] PREPARE PACKED RBC 2019-09-01 [place], [facility] of 20:58:25 [facility] PROTHROMBIN TIME / INR 2019-09-01 [place], [facility] y of 20:47:00 [facility] ACTIVATED PARTIAL THRMPLAS CARLTON 2019-09-01 [place], [facility] U niversity of 20:47:00 [facility] AC PANEL 20 + LACTIC ACID 2019-09-01 [place], [facility] sity of 20:47:00 [facility] TRANSFUSE PACKED RBC 2019-09-01 [place], [facility] of 20:35:41 [facility] POCT GLUCOSE (AUTOMATED) 2019-09-01 Gris [facility] [address] rsity of 20:32:00 [facility] EKG-12 LEAD 2019-09-01 [place], [facility] of 20:01:09 [facility] XR CHEST 1 VW 2019-09-01 [facility] of 19:41:56 [facility] PHOSPHORUS 2019-09-01 [place], [facility] of 19:38:00 [facility] MAGNESIUM 2019-09-01 [place], [facility] of 19:38:00 [facility] BASIC METABOLIC PANEL (NA, K, CL, 2019-09-01 [facility]ty [facility] of CO2, GLUCOSE, BUN, CREATININE, CA) 19:38:00 [facility] CBC WITH DIFFERENTIAL 2019-09-01 [facility] of 19:38:00 [facility] ABG+COOX+NA+K+GLU+CA2+ 2019-09-01 [facility] y of 19:30:00 [facility] ISTAT ACUTE CARE ARTERIAL 2019-09-01 Gris, [facility] ersity of 17:59:00 [facility] POCT ACT HIGH RANGE 2019-09-01 Gris, [facility] of 17:56:00 [facility] TRANSFUSE PACKED RBC 2019-09-01 [facility] y of 17:32:38 [facility] ACUTE CARE ARTERIAL 2019-09-01 Gris, [facility] ersity of 17:04:00 [facility] POCT ACT HIGH RANGE 2019-09-01 Gris, [facility] of 17:01:00 [facility] HEMOGLOBIN 2019-09-01 Domingo, [facility] of 16:58:00 [facility] HEMATOCRIT 2019-09-01 Domingo, [facility] of 16:58:00 [facility] PLATELET COUNT 2019-09-01 Domingo, [facility] of 16:58:00 [facility] PROTHROMBIN TIME / INR 2019-09-01 [facility], [facility] of 16:58:00 [facility] ACTIVATED PARTIAL THRMPLAS CARLTON 2019-09-01 Domingo, [facility] of 16:58:00 [facility] FIBRINOGEN 2019-09-01 Domingo, [facility] of 16:58:00 [facility] ISTAT ACUTE CARE ARTERIAL 2019-09-01 Gris, [facility] ersity of 16:38:00 [facility] POCT ACT HIGH RANGE 2019-09-01 Gris, [facility] of 16:35:00 [facility] ISTAT ACUTE CARE ARTERIAL 2019-09-01 Gris, [facility] ersity of 16:07:00 [facility] POCT ACT HIGH RANGE 2019-09-01 Gris, [facility] of 16:05:00 [facility] 2019-09-01 Gris, [facility] ersity of 15:40:00 [facility] POCT ACT HIGH RANGE 2019-09-01 [facility] of 15:21:00 [facility] TRANSFUSE PACKED RBC 2019-09-01 [facility] y of 15:15:20 [facility] TRANSFUSE PACKED RBC 2019-09-01 [facility] y of 15:15:01 [facility] POCT ACT HIGH RANGE 2019-09-01 [facility], [facility] of 15:10:00 [facility] ISTAT ACUTE CARE ARTERIAL 2019-09-01 [facility], [facility] ersity of 15:03:00 [facility] POCT ACT HIGH RANGE 2019-09-01 [facility], [facility] of 15:00:00 [facility] PREPARE PACKED RBC 2019-09-01 [facility] of 14:20:50 [facility] TRANSFUSE PACKED RBC 2019-09-01 [facility] y of 14:06:15 [facility] ISTA ACUTE CARE ARTERIAL 2019-09-01 [facility], [facility] ersity of 13:58:00 [facility] POCT ACT HIGH RANGE 2019-09-01 [facility], [facility] of 13:55:00 [facility] PREPARE PACKED RBC 2019-09-01 Elmo, [facility] of 12:50:33 [facility] CORONARY ARTERY BYPASS GRAFT 2019-09-01 [place], [facility] versity of 12:35:00 [facility] EKG-12 LEAD 2019-09-01 [facility] of 11:59:37 [facility] POCT GLUCOSE (AUTOMATED) 2019-09-01 [facility], [facility] Un[facility] rsity of 11:28:00 [facility] POCT GLUCOSE (AUTOMATED) 2019-09-01 Gris, [facility] Unive rsity of 09:35:00 [facility] POCT GLUCOSE (AUTOMATED) 2019-09-01 Gris, [facility] Unive rsity of 05:58:00 [facility] POCT GLUCOSE (AUTOMATED) 2019-09-01 Gris, [facility] Unive rsity of 02:15:00 [facility] POCT GLUCOSE (AUTOMATED) 2019-08-31 Gris, [facility] Unive rsity of 22:11:00 [facility] HB ABO GROUPING 2019-08-31 Elmo [facility] of 20:04:00 [facility] POCT GLUCOSE (AUTOMATED) 2019-08-31 Gris, [facility] Unive rsity of 17:32:00 [facility] POCT GLUCOSE (AUTOMATED) 2019-08-31 Gris, Radheshyam Unive rsity of 13:38:00 [facility] POCT GLUCOSE (AUTOMATED) 2019-08-31 Gris, Radheshy[facility] Unive rsity of 10:30:00 [facility] CBC WITH DIFFERENTIAL 2019-08-31 Pablo Curiel [facility] ty of 10:24:00 [facility] BASIC METABOLIC PANEL (NA, K, CL, 2019-08-31 Derrick Curiel [facility] of CO2, GLUCOSE, BUN, CREATININE, CA) 10:23:00 [facility] POCT GLUCOSE (AUTOMATED) 2019-08-31 Grsi, Radheshyam Unive rsity of 06:15:00 [facility] POCT GLUCOSE (AUTOMATED) 2019-08-31 Gris, Radheshyam Unive rsity of 02:07:00 [facility] POCT GLUCOSE (AUTOMATED) 2019-08-30 Gris, Radheshyam Unive rsity of 21:31:00 [facility] POCT GLUCOSE (AUTOMATED) 2019-08-30 Gris, Radheshyam Unive rsity of 17:45:00 [facility] POCT GLUCOSE (AUTOMATED) 2019-08-30 Gris, Radheshyam Unive rsity of 13:52:00 [facility] POCT GLUCOSE (AUTOMATED) 2019-08-30 Gris, Radheshyam Unive rsity of 11:02:00 [facility] POCT GLUCOSE (AUTOMATED) 2019-08-30 Gris, Radheshyam Unive rsity of 05:36:00 [facility] POCT GLUCOSE (AUTOMATED) 2019-08-30 Gris, Radheshyam Unive rsity of 03:26:00 [facility] POCT GLUCOSE (AUTOMATED) 2019-08-29 Gris, Radheshyam Unive rsity of 17:14:00 [facility] POCT GLUCOSE (AUTOMATED) 2019-08-29 Gris, Radhes[facility] Unive rsity of 13:44:00 [facility] POCT GLUCOSE (AUTOMATED) 2019-08-29 Gris, Radheshy[facility] Unive rsity of 09:52:00 [facility] COMP. METABOLIC PANEL (26526) 2019-08-29 Jadiel Kemp iversity of 09:43:00 [facility] POCT GLUCOSE (AUTOMATED) 2019-08-29 Gris, Radheshyam Unive rsity of 06:19:00 [facility] POCT GLUCOSE (AUTOMATED) 2019-08-29 Gris, [facility] Unive rsity of 03:44:00 [facility] US ABDOMEN LIMITED WITH DOPPLER 2019-08-28 Jadiel Kemp [place] of 22:49:00 [facility] POCT GLUCOSE (AUTOMATED) 2019-08-28 Gris, Radheshyam Unive rsity of 21:32:00 [facility] POCT GLUCOSE (AUTOMATED) 2019-08-28 Gris, Radheshyam Unive rsity of 17:20:00 [facility] MAGNESIUM 2019-08-28 [facility] of 14:28:00 [facility] BASIC METABOLIC PANEL (NA, K, CL, 2019-08-28 [facility] of CO2, GLUCOSE, BUN, CREATININE, CA) 14:28:00 [facility] CBC WITH DIFFERENTIAL 2019-08-28 [facility] of 14:28:00 [facility] POCT GLUCOSE (AUTOMATED) 2019-08-28 Gris, Radheshyam Unive rsity of 13:25:00 [facility] POCT GLUCOSE (AUTOMATED) 2019-08-28 Gris, Radheshyam Unive rsity of 07:19:00 [facility] POCT GLUCOSE (AUTOMATED) 2019-08-28 Gris, Rad[facility] Unive rsity of 03:00:00 [facility] POCT GLUCOSE (AUTOMATED) 2019-08-27 Gris, Radheshyam Unive rsity of 21:45:00 [facility] POCT GLUCOSE (AUTOMATED) 2019-08-27 Gris, Rad[facility] Unive rsity of 17:51:00 [facility] CT THORAX WO CONTRAST 2019-08-27 [facility] of 16:53:12 [facility] POCT GLUCOSE (AUTOMATED) 2019-08-27 Gris, Radheshyam Unive rsity of 13:54:00 [facility] POCT GLUCOSE (AUTOMATED) 2019-08-27 Gris, Radheshyam Unive rsity of 10:34:00 [facility] POCT GLUCOSE (AUTOMATED) 2019-08-27 Gris, Radheshyam Unive rsity of 05:56:00 [facility] POCT GLUCOSE (AUTOMATED) 2019-08-27 Gris, Radheshyam Unive rsity of 04:11:00 [facility] POCT GLUCOSE (AUTOMATED) 2019-08-27 Gris, Radheshyam Unive rsity of 01:25:00 [facility] POCT GLUCOSE (AUTOMATED) 2019-08-26 Gris, Radheshyam Unive rsity of 23:42:00 [facility] POCT GLUCOSE (AUTOMATED) 2019-08-26 Gris, Radheshyam Unive rsity of 22:59:00 [facility] ACUTE CARE ARTERIAL BLOOD GAS 2019-08-26 Jadiel Kemp iversity of 20:19:00 [facility] BILATERAL VEIN MAPPING BY VASCULAR 2019-08-26 Jadiel Kemp [place] of LAB 19:12:01 [facility] POCT GLUCOSE (AUTOMATED) 2019-08-26 Gris, Radheshyam Unive rsity of 18:06:00 [facility] POCT GLUCOSE (AUTOMATED) 2019-08-26 Gris, Radheshyam Unive rsity of 15:29:00 [facility] COLONOSCOPY (ENDO) 2019-08-26 Grzegorz Crum [place] o f 14:06:55 [facility] SURGICAL PATHOLOGY EXAM 2019-08-26 [facility] ity of 13:44:00 [facility] COLONOSCOPY 2019-08-26 Marlo Osman [place] of 13:20:00 [facility] ESOPHAGOGASTRODUODENOSCOPY 2019-08-26 Marlo Osman [facility] ersity of 13:20:00 [facility] EGD (ENDO) 2019-08-26 Grzegorz Crum [place] of 12:37:08 [facility] POCT GLUCOSE (AUTOMATED) 2019-08-26 Gris, Radheshyam Unive rsity of 11:51:00 [facility] POCT GLUCOSE (AUTOMATED) 2019-08-25 Gris, Radheshyam Unive rsity of 21:37:00 [facility] POCT GLUCOSE (AUTOMATED) 2019-08-25 Gris, Radheshyam Unive rsity of 20:44:00 [facility] POCT GLUCOSE (AUTOMATED) 2019-08-25 Gris, Radheshyam Unive rsity of 20:43:00 [facility] POCT GLUCOSE (AUTOMATED) 2019-08-25 Gris, Radheshyam Unive rsity of 20:11:00 [facility] POCT GLUCOSE (AUTOMATED) 2019-08-25 Gris, Radheshyam Unive rsity of 19:43:00 [facility] POCT GLUCOSE (AUTOMATED) 2019-08-25 Gris, Radheshyam Unive rsity of 18:58:00 [facility] POCT GLUCOSE (AUTOMATED) 2019-08-25 Gris, Radheshyam Unive rsity of 18:36:00 [facility] POCT GLUCOSE (AUTOMATED) 2019-08-25 Gris, Radheshyam Unive rsity of 18:17:00 [facility] POCT GLUCOSE (AUTOMATED) 2019-08-25 Gris, Radheshyam Unive rsity of 18:10:00 [facility] POCT GLUCOSE (AUTOMATED) 2019-08-25 Gris, Radheshyam Unive rsity of 18:02:00 [facility] POCT GLUCOSE (AUTOMATED) 2019-08-25 Gris, Radheshyam Unive rsity of 17:56:00 [facility] BASIC METABOLIC PANEL (NA, K, CL, 2019-08-25 [facility] of CO2, GLUCOSE, BUN, CREATININE, CA) 10:41:00 [facility] CBC WITH DIFFERENTIAL 2019-08-25 [facility] of 10:41:00 [facility] XR KUB 2019-08-25 [facility] of 04:48:36 [facility] POCT GLUCOSE (AUTOMATED) 2019-08-25 Harris Garza [facility] ity of 02:02:00 [facility] POCT GLUCOSE (AUTOMATED) 2019-08-24 Harris Garza [facility] ity of 22:18:00 [facility] POCT GLUCOSE (AUTOMATED) 2019-08-24 Harris Garza [facility] ity of 18:17:00 [facility] POCT GLUCOSE (AUTOMATED) 2019-08-24 Kayla, Harris Univers ity of 13:57:00 [facility] BASIC METABOLIC PANEL (NA, K, CL, 2019-08-24 [facility] of CO2, GLUCOSE, BUN, CREATININE, CA) 12:02:00 [facility] CBC WITH DIFFERENTIAL 2019-08-24 [facility] of 12:02:00 [facility] POCT GLUCOSE (AUTOMATED) 2019-08-24 Davidah, Harris [facility] ity of 10:27:00 [facility] POCT GLUCOSE (AUTOMATED) 2019-08-24 Kayla, Harris Univers ity of 05:43:00 [facility] POCT GLUCOSE (AUTOMATED) 2019-08-24 Kayla, Harris [facility] ity of 01:53:00 [facility] POCT GLUCOSE (AUTOMATED) 2019-08-23 Harris Garza [facility] ity of 23:06:00 [facility] IRON 2019-08-23 natividad [facility] of 21:20:00 [facility] TOTAL IRON BINDING CAPACITY 2019-08-23 [facility] versity of 21:20:00 [facility] POCT GLUCOSE (AUTOMATED) 2019-08-23 Harris Garza [facility] ity of 18:03:00 [facility] POCT GLUCOSE (AUTOMATED) 2019-08-23 Harris Garza [facility] ity of 14:22:00 [facility] POCT GLUCOSE (AUTOMATED) 2019-08-23 Harris Garza [facility] ity of 11:49:00 [facility] MAGNESIUM 2019-08-23 [facility] of 10:25:00 [facility] BASIC METABOLIC PANEL (NA, K, CL, 2019-08-23 [facility] of CO2, GLUCOSE, BUN, CREATININE, CA) 10:25:00 [facility] CBC WITH DIFFERENTIAL 2019-08-23 [facility] of 10:25:00 [facility] N-TERMINAL PRO-BNP 2019-08-[address] [facility] of 10:25:00 [facility] POCT GLUCOSE (AUTOMATED) 2019-08-23 DavidHarris [facility] ity of 06:21:00 [facility] POCT GLUCOSE (AUTOMATED) 2019-08-23 Harris Garza [facility] ity of 01:52:00 [facility] POCT GLUCOSE (AUTOMATED) 2019-08-22 Harris Garza [facility] ity of 23:30:00 [facility] POCT GLUCOSE (AUTOMATED) 2019-08-22 Harris Garza [facility] ity of 17:42:00 [facility] XR CHEST 1 VW 2019-08-22 [facility] of 10:25:58 [facility] POCT GLUCOSE (AUTOMATED) 2019-08-22 Harris Garza [facility] ity of 09:59:00 [facility] CBC WITH DIFFERENTIAL 2019-08-22 [facility] of 08:01:00 [facility] MAGNESIUM 2019-08-22 [facility] of 08:00:00 [facility] BASIC METABOLIC PANEL (NA, K, CL, 2019-08-22 [facility] of CO2, GLUCOSE, BUN, CREATININE, CA) 08:00:00 [facility] N-TERMINAL PRO-BNP 2019-08-[address] [facility] of 08:00:00 [facility] POCT GLUCOSE (AUTOMATED) 2019-08-22 Harris Garza [facility] ity of 06:01:00 [facility] POCT GLUCOSE (AUTOMATED) 2019-08-22 Harris Garza [facility] ity of 03:04:00 [facility] CATH PROCEDURE LOG 2019-08-22 [facility] of 00:10:24 Unassigned, No [facility] POCT GLUCOSE (AUTOMATED) 2019-08-21 Harris Garza [facility] ity of 22:39:00 [facility] POCT GLUCOSE (AUTOMATED) 2019-08-21 Harris Garza [facility] ity of 18:30:00 [facility] POCT GLUCOSE (AUTOMATED) 2019-08-21 Harris Garza [facility] ity of 13:53:00 [facility] POCT GLUCOSE (AUTOMATED) 2019-08-21 Harris Garza [facility] ity of 10:01:00 [facility] MRSA / MSSA SCREEN BY BRITNEY MTZ 2019-08-21 [facility] of 08:04:00 [facility] BASIC METABOLIC PANEL (NA, K, CL, 2019-08-21 Faustino Mason [place] of CO2, GLUCOSE, BUN, CREATININE, CA) 08:03:00 [facility] CBC WITH DIFFERENTIAL 2019-08-21 Faustino Mason [place] of 08:03:00 [facility] N-TERMINAL PRO-BNP 2019-08-21 Marlon [facility] of 08:03:00 [facility] POCT GLUCOSE (AUTOMATED) 2019-08-21 Harris Garza [facility] ity of 05:11:00 [facility] POCT GLUCOSE (AUTOMATED) 2019-08-21 Harris Garza [facility] ity of 03:22:00 [facility] EKG-12 LEAD 2019-08-21 [facility] of 02:36:48 [facility] EKG-12 LEAD 2019-08-21 [facility] of 02:36:30 [facility] POCT GLUCOSE (AUTOMATED) 2019-08-20 Harris Garza [facility] ity of 22:21:00 [facility] POCT GLUCOSE (AUTOMATED) 2019-08-20 Harris Garza [facility] ity of 17:35:00 [facility] POCT GLUCOSE (AUTOMATED) 2019-08-20 Harris Garza [facility] ity of 13:40:00 [facility] URIC ACID 2019-08-20 [facility] 09:36:00 [facility] TROPONIN I 2019-08-20 Marlon [facility] of 09:36:00 [facility] BASIC METABOLIC PANEL (NA, K, CL, 2019-08-20 [facility] of CO2, GLUCOSE, BUN, CREATININE, CA) 09:36:00 [facility] CBC WITH DIFFERENTIAL 2019-08-20 Faustino Mason [place] of 09:36:00 [facility] N-TERMINAL PRO-BNP 2019-08-20 Marlon [facility] of 09:36:00 [facility] POCT GLUCOSE (AUTOMATED) 2019-08-20 Harris Garza ity of 05:32:00 [facility] POCT GLUCOSE (AUTOMATED) 2019-08-20 Harris Garza ity of 02:20:00 [facility] VITAMIN B12, LEVEL 2019-08-19 Harris Garza of 22:59:00 [facility] FOLATE 2019-08-19 Harris Garza [place] of 22:59:00 [facility] TROPONIN I 2019-08-19 Anika Cisneros [place] of 22:59:00 [facility] IRON PANEL 2019-08-19 David, Harris [place] of 22:59:00 [facility] VITAMIN D, 25-OH 2019-08-19 Kayla, Harris [place] of 22:59:00 [facility] POCT GLUCOSE (AUTOMATED) 2019-08-19 [facility] of 21:22:00 [facility] POCT GLUCOSE (AUTOMATED) 2019-08-19 [facility] of 16:58:00 [facility] ECHO ROUTINE W/DOPPLER COLOR 2019-08-19 Anika Cisneros [facility] versity of 14:58:29 [facility] POCT GLUCOSE (AUTOMATED) 2019-08-19 [facility] of 13:26:00 [facility] POCT GLUCOSE (AUTOMATED) 2019-08-19 [facility] of 09:58:00 [facility] PHOSPHORUS 2019-08-19 Marlon [facility] of 08:59:00 [facility] URIC ACID 2019-08-19 Marlon [facility] of 08:59:00 [facility] MAGNESIUM 2019-08-19 Marlon, [facility] of 08:59:00 [facility] FERRITIN SERUM 2019-08-19 Harris Garza [place] of 08:59:00 [facility] TROPONIN I 2019-08-19 Marlon [facility] of 08:59:00 [facility] BASIC METABOLIC PANEL (NA, K, CL, 2019-08-19 [facility] of CO2, GLUCOSE, BUN, CREATININE, CA) 08:59:00 [facility] CBC WITH DIFFERENTIAL 2019-08-19 Marlon [facility] of 08:59:00 [facility] N-TERMINAL PRO-BNP 2019-08-19 Marlon [facility] of 08:59:00 [facility] POCT GLUCOSE (AUTOMATED) 2019-08-19 [facility] it[facility] of 04:38:00 [facility] URIC ACID 2019-08-19 Marlon [facility] of 02:15:00 [facility] LIPID PANEL ([id number])(TOTAL 2019-08-19 Anika Cisneros [facility] sity of CHOLESTEROL, TRIGLYCERIDES, HDL) 02:15:00 [facility] TROPONIN I 2019-08-19 Blayne [facility] of 02:14:00 [facility] POCT GLUCOSE (AUTOMATED) 2019-08-19 [facility] of 01:10:00 [facility] POCT GLUCOSE (AUTOMATED) 2019-08-18 [facility] of 23:31:00 [facility] XR CHEST 2 VW 2019-08-18 [facility]on [facility] of 20:56:25 [facility] LIPASE 2019-08-18 [facility] of 20:42:00 [facility] TROPONIN I 2019-08-18 [facility] of 20:42:00 [facility] THYROID STIMULATING HORMONE 2019-08-18 Blayne [facility] ersity of 20:42:00 [facility] COMP. METABOLIC PANEL (82082) 2019-08-18 [facility] of 20:42:00 [facility] LIPID PANEL ([id number])(TOTAL 2019-08-18 Blayne [facility] sity of CHOLESTEROL, TRIGLYCERIDES, HDL) 20:42:00 [facility] CBC WITH DIFFERENTIAL 2019-08-18 [facility] of 20:42:00 [facility] GLYCOSYLATED HEMOGLOBIN (A1C) 2019-08-18 Anika Cisneros iversity of 20:42:00 [facility] PROTHROMBIN TIME / INR 2019-08-18 [facility] 20:42:00 [facility] ACTIVATED PARTIAL THRMPLAS CARLTON 2019-08-18 [facility] of 20:42:00 [facility] N-TERMINAL PRO-BNP 2019-08-18 Shanae Barney [facility] of 20:42:00 [facility] EKG-12 LEAD 2019-08-18 [facility] of 20:32:11 [facility] EKG-12 LEAD 2019-08-18 [facility] of 20:31:05 [facility] NOTICE OF PRIVACY PRACTICES 2019-08-18 [facility] ersity of 20:23:50 Unassigned, No [facility] CONSENT/REFUSAL FOR DIAGNOSIS AND 2019-08-18 [facility] of TREATMENT 20:23:39 Unassigned, No [facility] ASSIGNMENT OF BENEFITS 2019-08-18 Doctor [facility] of 20:23:13 Unassigned, No [facility] HOSPITAL ADMISSION 2019-08-18 Doctor [facility] 06:01:00 Unassigned, No [facility] History of Cyst excision [facility] History of Debridement [facility] History of Hand Surgery [facility] History of [facility] History of University of Esophagogastroduodenoscopy [facility] History of Colonoscopy Univers y [facility]icians History of Surgical removal of U niversity of foreign body [facility] History of CABG [facility] Encounters Start End Encounter Admission Attending Care Care Encounter Source Date/Time Date/Time Type Type Clinicians Facility Department ID 2021-09-13 Outpatient 3 [id number] E[facility]PL [facility] 11:20:04 0302 2021-09-07 Outpatient 3 [id number] ENCPL REF [id number] ENCPL 16:36:24 0222021-09-06 Outpatient 3 [id number] ENCPL REF [id number] ENCPL 10:24:03 0223 2021-09-05 Outpatient 3 [id number] ENCPL REF [id number] ENCPL 14:24:39 0222 2021-08-10 Outpatient 3 [id number] ENCPL [place] [id number] ENCPL 13:27:30 8 2021-08-10 Outpatient 3 [id number] ENCPL REF [id number] ENCPL 13:24:43 1201 2021-08-10 Outpatient 3 [id number] ENCPL REF [id number] ENCPL 13:23:12 1128 2021-08-09 Outpatient MIKKILINENI [facility] 14:05:32 , [address] [facility] 2021-08-09 Outpatient MIKKILINENI [facility]LC [facility] [id number] [facility] 13:09:53 , 07453 [facility] 2021-08-09 Outpatient MIKKILINENI [facility]LMLC [facility] [id number] [facility] 12:37:31 , 01744 [facility] 2021-08-09 [facility] [id number] 12:31:11 , [address] [facility] Layo wilson I l [facility] Clin[facility] 2021-08-09 [facility] [id number] [facility] 12:15:55 89061 Cristela - Gwyn[facility] l Outpat[facility] ent Clinics 2021-05-14 Inpatient U TEREZA [facility] [id number] Univers 12:00:24 VONDA ity [facility] 2021-05-12 Emergency [facility] [id number] Univers 23:59:53 ity [facility] 2021-05-11 Emergency [facility] [id number] Univers 17:53:57 ity [facility] 2021-04-12 2021-04-12 Refjesse [facility] 1.2.840.114 [id number] Univers 00:00:00 00:00:00 Derrick PRIMARY 350.1.13.10 it [place] [phone] [facility] [address] 2020-12-27 2020-12-27 Refill [facility] 1.2.840.114 [id number] Univers 00:00:00 00:00:00 Derrick PRIMARY 350.1.13.10 it [place] [phone] [facility] [address] 2020-12-27 2020-12-27 Refill [facility] 1.2.840.114 [id number] 54 00:00:00 00:00:00 Derrick PRIMARY 350.1.13.10 CARE 4.2.7.2.686 PAVILLION [phone] 389 2020-12-16 2020-12-16 Orders Doctor CUNHA 1.2.840.114 [id number] Univers 00:00:00 00:00:00 Only Unassigned, LINK 350.1.13.10 ity of [place] [facility] 4.2.7.2.686 You as [phone] [facility] [address] 2020-12-16 2020-12-16 Orders Doctor CUNHA 1.2.840.114 [id number] 17 00:00:00 00:00:00 Only Unassigned, LINK 350.1.13.10 [place] [facility] [id number] 009 2020-11-30 2020-11-30 Patient Jatin Douglas 1.2.840.114 [id number] 21 Univers 00:00:00 00:00:00 Outreach Hugh Mcnally 350.1.13.10 it[place] [phone] [facility] [address] 2020-11-30 2020-11-30 Patient Jatin Douglas 1.2.840.114 [id number] 21 00:00:00 00:00:00 Outreach Hugh Mcnally 350.1.13.10 [place] 4.2.7.2.686 [id number] 403 2020-11-22 2020-11-22 Nurse ALPHONSE Villareal 1.2.840.114 [id number] Univers 00:00:00 00:00:00 Triage Liane Ulloa LINK 350.1.13.10 i ty of HOSPITAL 4.2.7.2.686 You as [phone] [facility] [address] 2020-11-22 2020-11-22 Nurse ALPHONSE Villareal 1.2.840.114 [id number] 65 00:00:00 00:00:00 Triage Liane Ulloa LINK 350.1.13.10 HOSPITAL 4.2.7.2.686 [id number] 019 2020-11-16 2020-11-16 Orders Doctor ALPHONSE 1.2.840.114 [id number] Univers 00:00:00 00:00:00 Only Unassigned, LINK 350.1.13.10 [place] of [place] [facility] 4.2.7.2.686 You as [phone] [facility] [address] 2020-11-16 2020-11-16 Orders Doctor ALPHONSE 1.2.840.114 [id number] 06 00:00:00 00:00:00 Only Unassigned, LINK 350.1.13.10 [place] [facility] 4.2.7.2.686 [phone] 009 2020-11-11 2020-11-11 Telephone Parks, [facility] 1.2.967.548 [id number] Univers 00:00:00 00:00:00 Derrick PRIMARY 350.1.13.10 it [place] [phone] Va dical [address] 2020-11-11 2020-11-11 Telephone Parks, [facility] 1.2.263.285 [id number] 9369 00:00:00 00:00:00 Derrick PRIMARY 350.1.13.10 CARE 4.2.7.2.686 PAVILLION [phone] 389 2020-11-10 2020-11-10 Transition Jatin Campbell 1.2.840.114 [id number] Univers 00:00:00 00:00:00 of Care Nathalia Mcnally 350.1.13.10 it [place].7.2.[place] [phone] [facility] [address] 2020-11-10 2020-11-10 Refill [facility] 1.2.840.114 [id number] Univers 00:00:00 00:00:00 Haris PRIMARY 350.1.13.10 it y of [place].2.[place] [phone] Va dical [address] 2020-11-10 2020-11-10 Transition Jatin Campbell 1.2.840.114 [id number] 00:00:00 00:00:00 of Care Nathalia Mcnally 350.1.13.10 [place] 4.2.7.2.686 [id number] 403 2020-11-10 2020-11-10 [facility] 1.2.840.114 [id number] 82 00:00:00 00:00:00 Haris PRIMARY 350.1.13.10 [place] CARE 4.2.7.2.686 PAVILLION [phone] 389 2020-10-22 2020-11-09 [facility] Vonda Starks 1.2.840.1 14 [id number] Univers 06:28:00 18:56:00 Encounter Antonio Villa 350.1.13.10 ity of [facility] 4.2.7 .2.686 David [place] [phone] Medical Haris Sullivan [address] 2020-08-02 2020-08-02 Letter Gale CUNHA 1.2.840.114 [id number] Univers 00:00:00 00:00:00 (Out) , LINK 350.1.13.10 it y of [facility] 4.2.7.2.686 [facility] [phone] [facility] [address] 2020-07-04 2020-07-04 Orders Doctor ALPHONSE 1.2.840.114 [id number] Univers 00:00:00 00:00:00 Only Unassigned, LINK 350.1.13.10 it[place] of [place] [facility] 4.2.7.2.686 You as [phone] [facility] [address] 2020-05-03 2020-05-03 Emergency [facility] 1.2.840.114 [id number] Univers 14:26:00 16:25:00 Christa Isaac 350.1.13.10 ity of [place] [phone] [facility] 0[address] 2020-05-03 2020-05-03 Orders Doctor CUNHA 1.2.840.114 [id number] Univers 00:00:00 00:00:00 Only Unassigned, LINK 350.1.13.10 [place] of [place] [facility] 4.2.7.2.686 You as [phone] [facility] [address] 2020-05-03 2020-05-03 Patient Jatin Douglas 1.2.840.114 [id number] Univers 00:00:00 00:00:00 Outreach Hugh Mcnally 350.1.13.10 ity of [place]2.7.2.[place] [phone] [facility] [address] 2020-02-05 2020-02-05 Patient Trupti Ahn 1.2.840.114 [id number] Univers 00:00:00 00:00:00 Outreach E Mcnally 350.1.13.10 i [place] [phone] [address] 2020-01-28 2020-01-28 Patient Trupti Ahn 1.2.840.114 [id number] Univers 00:00:00 00:00:00 Outreach E Mcnally 350.1.13.10 i [place] [phone] [address] 2020-01-18 2020-01-18 Patient Jatin Douglas 1.2.840.114 [id number] Univers 00:00:00 00:00:00 Outreach Hugh Tejeda Mcnally 350.1.13.10 [place] [phone] [address] 2020-01-08 2020-01-08 Patient Jatin Douglas 1.2.840.114 [id number] Univers 00:00:00 00:00:00 Outreach Hugh Tejeda Mcnally 350.1.13.10 [place] [phone] [address] 2020-01-07 2020-01-07 Patient Trupti Ahn 1.2.840.114 [id number] Univers 00:00:00 00:00:00 Outreach E Mcnally 350.1.13.10 i [place] [phone] [address] 2019-12-22 2019-12-22 Patient Trupti Ahn 1.2.840.114 76 [id number] Univers 00:00:00 00:00:00 Outreach E Mcnally 350.1.13.10 [place] [phone] [address] 2019-12-16 2019-12-16 Patient Trupti Ahn 1.2.840.114 75 [id number] Univers 00:00:00 00:00:00 Outreach E Mcnally 350.1.13.10 i [place]2.[place] [phone] [address] 2019-12-11 2019-12-11 Patient Jatin Douglas 1.2.840.114 [id number] Univers 00:00:00 00:00:00 Outreach Hugh Whitey 350.1.13.10 [place]2.[place] [phone] [address] 2019-12-10 2019-12-10 Patient Jatin Douglas 1.2.840.114 [id number] Univers 00:00:00 00:00:00 Outreach Hugh Tejeda Mcnally 350.1.13.10 [place] [phone] [address] 2019-12-03 2019-12-03 Patient Jatin Douglas 1.2.840.114 [id number] Univers 00:00:00 00:00:00 Outreach Hugh Whitey 350.1.13.10 [place] [phone] [address] 2019-12-02 2019-12-02 Patient Trupti Ahnanders 1.2.840.114 75 [id number] Univers 00:00:00 00:00:00 Outreach Vee Whitey 350.1.13.10 i [place]2.[place] [phone] [address] 2019-12-01 2019-12-01 Patient Jatin Douglas 1.2.840.114 [id number] Univers 00:00:00 00:00:00 Outreach Hugh Tejeda Mcnally 350.1.13.10 [place]2.[place] [phone] [address] 2019-11-26 2019-11-26 Patient Jatin Douglas 1.2.840.114 [id number] Univers 00:00:00 00:00:00 Outreach Hugh Tejeda Mcnally 350.1.13.10 [place]2.[place] [phone] [address] 2019-11-25 2019-11-25 Patient Trupti Ahn Jatin 1.2.840.114 75 [id number] Univers 16:38:53 16:38:57 Outreach E Mcnally 350.1.13.10 i [place]2.[place] [phone] [address] 2019-11-25 2019-11-25 Outpatient [facility] [id number] -20 Univers 12:00:00 12:00:00 [id number] ity of [facility] 2019-11-20 2019-11-20 Patient Trupti Ahn 1.2.840.114 [id number] Univers 00:00:00 00:00:00 Outreach E Mcnally 350.1.13.10 i [place]7.2.[place] [phone] [address] 2019-11-16 2019-11-16 Orders Doctor ALPHONSE 1.2.840.114 [id number] Univers 00:00:00 00:00:00 Only Unassigned, LINK 350.1.13.10 [place] [facility] 4.2.7.2.686 You as [phone] [address] 2019-11-11 2019-11-11 Patient Jatin Douglas 1.2.840.114 [id number] Univers 00:00:00 00:00:00 Outreach Hugh Tejeda Mcnally 350.1.13.10 [place]2.[place] [phone] [address] 2019-11-03 2019-11-03 Patient Trupti Ahnanders 1.2.840.114 [id number] Univers 00:00:00 00:00:00 Outreach E Mcnally 350.1.13.10 i [place]7.2.[place] [phone] [address] 2019-11-02 2019-11-02 Patient Trupti Ahn Jatin 1.2.840.114 75 [id number] Univers 00:00:00 00:00:00 Outreach E Mcnally 350.1.13.10 i [place]2.[place] [phone] [address] 2019-10-30 2019-10-30 Patient Trupti Ahn Jatin 1.2.840.114 75 [id number] Univers 00:00:00 00:00:00 Outreach E Mcnally 350.1.13.10 i ty [place]2.7.2.[place] [phone] [facility] [address] 2019-10-29 2019-10-29 Hospital Kaycee Devlin 1.2.892.173 [id number] Univers 11:46:00 23:59:00 Encounter Segun Link 350.1.13.10 ity of [facility] 4.2.7.2.686 You as [phone] [facility] [address] 2019-10-29 2019-10-29 Outpatient R [facility] [id number] -20 Univers 12:30:00 12:30:00 [id number] ity of [facility] 2019-10-29 2019-10-29 [facility]patient [facility] [id number] Univers 12:30:00 12:30:00 SEGUN ity of [facility] 2019-10-29 2019-10-29 Transition Jatin Navarrete 1.2.840.114 [id number] Univers 00:00:00 00:00:00 of Care Lucia Mcnally 350.1.13.10 [place].2.[place] [phone] [facility] [address] 2019-10-26 2019-10-28 [facility] Aisha Bah [facility] 1.2.840. 114 [id number] Univers 20:13:39 12:05:00 Encounter Faustino Mason 350.1.13.10 ity of [place].2.[place] [phone] [facility] [address] 2019-10-28 2019-10-28 Telephone [facility] 1.2.092.074 [id number] Univers 00:00:00 00:00:00 Mara Isaac 350.1.13.10 ity of [place]2.7.2.[address] [address] [facility] [phone] Va dical [facility] 059 [facility] 2019-10-27 2019-10-27 Telephone [facility] 1.2.785.478 [id number] Univers 00:00:00 00:00:00 Grzegorz [facility] 350.1.13.10 i ty of [place] 4.2.7.2.686 You as Professio [phone] Va dical nal 044 [facility] One 2019-10-19 2019-10-26 Telemedici [facility] 1.2.840.114 [id number] Univers 10:08:07 17:02:04 ne Visit Chellyclark [place] 350.1.13.10 ity of [place]2.[place].2.[place] Professio [phone] Va dical nal 059 [facility] 2019-10-26 2019-10-26 Fruit Checker Shaka, Adc Lab Main [facility] 1.2.8 40.114 [id number] Univers 14:57:39 15:12:39 Visit Tay Mara [place] 350.1.13.10 ity of [place] 4[place].2.[place] Profess[place] [phone] [place]ical nal 353 [facility] 2019-10-26 2019-10-26 Outpatient O [facility] [id number] -20 Univers 15:00:00 15:00:00 MARA [id number] ity o [facility] 2019-10-26 2019-10-26 Outpatient R [facility] [id number] Univers 11:15:00 11:15:00 MARA ruizy o [facility] 2019-10-26 2019-10-26 Orders Doctor CUNHA 1..840.114 [id number] Univers 00:00:00 00:00:00 Only Unassigned, LINK 350.1.13.10 [place] [facility] 4.2.7.2.686 You as [phone] [address] 2019-10-19 2019-10-19 Outpatient O [facility] [id number] -20 Univers 14:40:00 14:40:00 MARA [id number] ity o [facility] 2019-10-19 2019-10-19 Outpatient O [facility] [id number] Univers 14:40:00 14:40:00 MARA urrutia o [facility] 2019-10-19 2019-10-19 Telephone [facility] 1.2.756.892 [id number] Univers 00:00:00 00:00:00 Mara Isaac 350.1.13.10 it[place] of [place].2.[place] [facility] [phone] Va dical [facility] 059 [facility] 2019-10-12 2019-10-12 Hospital Renny Ashley 1.2.840.114 [id number] Univers 12:30:00 23:59:00 Encounter Segun Devlin 350.1 .13.10 ity of [facility] 4.2.7.2.686 You as [id number] [facility] [address] 2019-10-12 2019-10-12 Outpatient [facility] [id number] -20 Univers 12:30:00 12:30:00 [id number] ity [facility] 2019-10-12 2019-10-12 Outpatient [facility] [id number] Univers 12:30:00 12:30:00 RENNY [facility] 2019-09-29 2019-10-01 Emergency Chong Brennan [facility] 1.2.840.1 14 [id number] Univers 16:30:29 18:09:00 Pritesh Sunshine [facility] 350.1.13.10 ity [facility] 4.2.7.2.686 [place] [phone] [facility] [address] ([facility]) 2019-09-29 2019-10-01 Outpatient X [facility] [id number] Univers 16:30:29 18:09:00 PRITESH urrutia o f [facility] 2019-09-29 2019-09-29 [facility] 1.2.840.114 [id number] Univers 09:00:00 16:29:00 Encounter Marlin 350.1.13.10 ity [facility] 4.2.7.2.[place] [phone] [facility] [address] 2019-09-29 2019-09-29 Outpatient R ELMO KARLEE [facility] [id number] Univers 09:00:00 16:29:00 ity [facility] 2019-09-29 2019-09-29 Appointmen ELMO [facility] [id number] Univers 15:00:00 15:00:00 t; IGOR BORREGO M.D. Advanced ity of KARLEE [facility] Lori Freeman Failure - Physic i [facility] 2019-09-29 2019-09-29 Fruit Checker 1, Adc Lab [facility] 1.2.840.114 [id number] Univers 09:30:09 09:45:09 Visit Igor Borrego [place] 350.1.13.10 [facility] 4.2.7.2.686 [facility] [phone] [facility] [address] 2019-09-29 2019-09-29 Outpatient R IGOR BORREGO [facility] [id number] [id number] Univers 09:00:00 09:00:00 [id number] ity [facility] 2019-09-28 2019-09-28 Hospital Segun Devlin 1. 2.840.114 [id number] Univers 12:30:00 23:59:00 Encounter Renny Ashley 350.1.13.10 ity [facility] 4.2.7.2.686 You as [phone] [facility] [address] 2019-09-28 2019-09-28 Ancillary Room, Maureen-Occup Therapy Tub Luda ie 1.2.840.114 [id number] Univers 16:08:34 16:38:34 Visit Renny Ashley 350.1.13.10 ity [facility] 4.2.7.2.686 You as [phone] [facility] [address] 2019-09-28 2019-09-28 Outpatient R [facility] [id number] -20 Univers 12:30:00 12:30:00 [id number] ity [facility] 2019-09-28 2019-09-28 Outpatient R CLAUS [facility] [id number] Univers 12:30:00 12:30:00 SEGUN virgilio [facility] 2019-09-22 2019-09-22 Ancillary Room, Maureen-Occup Therapy Tub Luda ie 1.2.840.114 [id number] Univers 16:28:15 17:13:15 Visit Segun Devlin 350.1.1 3.10 ity [facility] 4.2.7.2.686 You as [phone] [facility] [address] 2019-09-21 2019-09-21 Hospital Kaycee Devlin 1.2.751.662 [id number] Univers 12:30:00 23:59:00 Encounter Segun Maza 350.1.13.10 ity of [facility] 4.2.7.2.686 You as [phone] [facility] [address] 2019-09-21 2019-09-21 Outpatient R [facility] [id number] -20 Univers 12:30:00 12:30:00 [id number] ity of [facility] 2019-09-21 2019-09-21 Outpatient [facility] [id number] Univers 12:30:00 12:30:00 [facility] 2019-09-21 2019-09-21 Outpatient R [facility] [id number] Univers 08:45:00 08:45:00 [facility] 2019-09-18 2019-09-18 Emergency X DOYLE, [facility] ERT [id number] Univers 17:58:06 20:49:00 GISSELLE [facility] 2019-09-18 2019-09-[address] [facility] 1.2.041.169 [id number] Univers 17:58:06 20:49:00 Gisselle Isaac 350.1.13.10 i ty of [place].2.[place] [phone] [facility] [address] 2019-09-12 2019-09-15 Inpatient X ABU [facility] [id number] Univers 09:17:22 13:30:00 KRISHANFLORsaray o f [facility] 2019-09-12 2019-09-15 [facility] Sang Leal [facility] 1.2.840.1 14 [id number] Univers 09:17:22 13:30:00 [facility] 350.1.13. 10 ity of [place]2.7.2.[place] [phone] [facility] [address] ([facility]) 2019-09-10 2019-09-10 Patient Trupti Ahn 1.2.840.114 [id number] Univers 00:00:00 00:00:00 Outreach Vee Whitey 350.1.13.10 i ty of [place].2.[place] [phone] [place] [address] [address] 2019-09-08 2019-09-08 Transition Jatin Navarrete 1.2.840.114 [id number] Univers 00:00:00 00:00:00 of Care Lucia Whitey 350.1.13.10 ity of [place]2.7.2.[place] [phone] [place] [address] [address] 2019-08-18 2019-09-07 Inpatient X [facility] [id number] Univers 14:20:52 14:10:00 [facility] 2019-08-18 2019-09-07 [facility] Hailey [facility] 1.2.840.1 14 [id number] Univers 14:20:52 14:10:00 Encounter David [facility] 350.1.13.10 ity [facility] Clear 4.2.7.2.686 [facility] [place] [phone] [place] [address] [address] ([facility]) Results Test Description Test Time Test Comments Results Result Comments Source POCT GLUCOSE (AUTOMATED) 2020-11-09 16:51:02 Test Item Value Reference Range Interpretation Comme nts POCT GLU (test code = 2822776565) 177 mg/dL 70-110 H Lab Interpretation (test code = 05188-7) Abnormal [facility]2020-11-09 16:51:02 Test Item Value Reference Range Interpretation Comments POCT GLU (test code = 1347156979) 177 mg/dL 70-110 H Lab Interpretation (test code = Abnormal 90410-1) [facility] WITHOUT [id number] 12:33:06 Test Item Value Reference Range Interpretation Comments WBC (test code = 6690-2) See_Comment [A utomated message] The system [employer] generated this result transmit tennille reference range : 4.20 - 10.70 10*3/?L. The reference range was not used to interpret this result as normal/abnormal . RBC (test code = 789-8) See_Comment L [Au tomated message] The system [employer] generated this result transmit tenn[place] reference range [...] 777-3) See_Comment [Au tomated message] The system [employer] generated this result transmit tennille reference range : 150 - 328 10*3/?L. The reference range was not used to interpret this result as normal/abnormal . MPV (test code = 12.5 fL 9.8-13.0 01750-5) RDW-CV (test code = 22.8 % 12.1-15.4 H 788-0) RDW-SD (test code = 64.1 fL 38.5-51.6 H 92999-2) NRBC x10^3 (test code = <0.01 See_Comment [Au tomated message] [id number]) The system [employer] generated this result transmit tennille reference range : 10*3/?L. The reference range was not used to interpret this result as normal/abnormal . NRBC/100 WBC (test code See_Comment [Au tomated message] = 8293811016) The system [facility] generated this result transmit tennille reference range : 0.0 - 10.0 /100 WBC s. The reference r christine was not used to interpret this result as normal/abnormal . IPF % (test code = 7642487952) Lab Interpretation (test Abnormal code = 38875-1) [facility] WITHOUT [id number] 12:33:06 Test Item Value Reference Range Interpretation Comments WBC (test code = 6690-2) See_Comment [A utomated message] The system [employer] generated this result transmit tennille reference range : 4.20 - 10.70 10*3/?L. The reference range was not used to interpret this result as normal/abnormal . RBC (test code = 789-8) See_Comment L [Au tomated message] The system [employer] generated this result transmit tennille reference range [...] 777-3) See_Comment [Au tomated message] The system [facility] generated this result transmit tennille reference range : 150 - 328 10*3/?L. The reference range was not used to interpret this result as normal/abnormal . MPV (test code = 12.5 fL 9.8-13.0 79833-7) RDW-CV (test code = 22.8 % 12.1-15.4 H 788-0) RDW-SD (test code = 64.1 fL 38.5-51.6 H 69348-1) NRBC x10^3 (test code = <0.01 See_Comment [Au tomated message] [id number]) The system [facility] generated this result transmit tennille reference range : 10*3/?L. The reference range was not used to interpret this result as normal/abnormal . NRBC/100 WBC (test code See_Comment [Au tomated message] = [id number]) The system [facility] generated this result transmit tennille reference range : 0.0 - 10.0 /100 WBC s. The reference r christine was not used to interpret this result as normal/abnormal . IPF % (test code = [id number]) Lab Interpretation (test Abnormal code = 72083-3) [facility] Test Item Value Reference Range Interpretation Comments MAGNESIUM (test code = [id number]) 2.7 mg/dL 1.7-2.4 H Lab Interpretation (test code = Abnormal 08621-2) [facility] (NA, K, CL, CO2, GLUCOSE, BUN, CREATININE, CA)2020-11-09 12:23:25 Test Item Value Reference Range Interpretation Comments NA (test code = 146 mmol/L 135-145 H [id number]) K (test code = 4.0 mmol/L 3.5-5.0 5614578225) CL (test code = 110 mmol/L 98-108 H 7928653686) CO2 TOTAL (test code = 31 mmol/L 23-31 6873158402) AGAP (test code = 2-16 2754014231) BUN (test code = 49 mg/dL 7-23 H 8717462099) GLUCOSE (test code = 114 mg/dL 70-110 H 3598610208) CREATININE (test code = 1.23 mg/dL 0.60-1.25 4877364121) CALCIUM (test code = 7.8 mg/dL 8.6-10.6 L 2392126642) eGFR (test code = mL/min/1.73m2 2774872777) JUAN LUIS (test code = JUAN LUIS) [...] tests). Lab Interpretation Abnormal (test code = 30092-4) [facility] METABOLIC PANEL (NA, K, CL, CO2, GLUCOSE, BUN, CREATININE, CA)2020-11-09 12:23:25 Test Item Value Reference Range Interpretation Comments NA (test code = 146 mmol/L 135-145 H 2729913211) K (test code = 4.0 mmol/L 3.5-5.0 7305728948) CL (test code = 110 mmol/L 98-108 H 9479468076) CO2 TOTAL (test code = 31 mmol/L 23-31 2597376885) AGAP (test code = 2-16 5888570720) BUN (test code = 49 mg/dL 7-23 H 2526028989) GLUCOSE (test code = 114 mg/dL 70-110 H 2578837034) CREATININE (test code = 1.23 mg/dL 0.60-1.25 0725856462) CALCIUM (test code = 7.8 mg/dL 8.6-10.6 L 6507634847) eGFR (test code = mL/min/1.73m2 3350438491) JUAN LUIS (test code = JUAN LUIS) [...] tests). Lab Interpretation Abnormal (test code = 73566-2) [facility] Test Item Value Reference Range Interpretation Comments MAGNESIUM (test code = 0824052252) 2.7 mg/dL 1.7-2.4 H Lab Interpretation (test code = Abnormal 23286-4) [facility] GLUCOSE (AUTOMATED)2020-11-09 10:56:45 Test Item Value Reference Range Interpretation Comments POCT GLU (test code = 0684478115) 129 mg/dL 70-110 H Lab Interpretation (test code = Abnormal 24338-4) [facility] GLUCOSE (AUTOMATED)2020-11-09 05:24:07 Test Item Value Reference Range Interpretation Comments POCT GLU (test code = 2031400917) 203 mg/dL 70-110 H Lab Interpretation (test code = Abnormal 00219-1) [facility] GLUCOSE (AUTOMATED)2020-11-08 23:23:05 Test Item Value Reference Range Interpretation Comments POCT GLU (test code = 7726479670) 238 mg/dL 70-110 H Lab Interpretation (test code = Abnormal 62211-7) [facility] GLUCOSE (AUTOMATED)2020-11-08 15:48:22 Test Item Value Reference Range Interpretation Comments POCT GLU (test code = 9780576568) 193 mg/dL 70-110 H Lab Interpretation (test code = Abnormal 28215-6) [facility] [id number] 14:45:56 1. ?Multifocal mixed attenuation opacities and [...] TECHNIQUE: CT examination acquisition dated 10/22/2020 from [facility], labeled with the patients name, was submitted [...] there is active bleeding is not able diwght determined in thisnoncontrast exam. BONES AND SOFT [...] 09/20/2017TECHNIQUE: CT examination acquisition dated 10/22/2020 from [facility], labeled with the patients name, was submitted [...] reviewed this study and agree with the abovereport.[facility] [id number] 14:45:56 1. 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 Mamb, Radiant Results Inft User - 11/08/2020 9:47 AM CDTEXAM: CT CHEST, ABDOMEN AND PELVIS WITHOUT CONTRAST, CONSULTATION OUTSIDEHISTORY: 65 years -old Male with uti - shock COMPARISON: None, correlation with CT abdomen pelvis with and withoutcontrast from 09/20/2017TECHNIQUE: CT examination acquisition dated 10/22/2020 from [facility], labeled with the patients name, was submitted [...] reviewed this study and agree with the abovereport.[facility] GLUCOSE (AUTOMATED)2020-11-08 11:15:50 Test Item Value Reference Range Interpretation Comments POCT GLU (test code = 7570610702) 126 mg/dL 70-110 H Lab Interpretation (test code = Abnormal 36065-5) [facility] METABOLIC PANEL (NA, K, CL, CO2, GLUCOSE, BUN, CREATININE, CA)2020-11-08 10:22:09 Test Item Value Reference Range Interpretation Comments NA (test code = 147 mmol/L 135-145 H 0971338086) K (test code = 4.1 mmol/L 3.5-5.0 2200184034) CL (test code = 113 mmol/L 98-108 H 0378135994) CO2 TOTAL (test code = 30 mmol/L 23-31 4421313731) AGAP (test code = 2-16 0328854715) BUN (test code = 43 mg/dL 7-23 H 6471873525) GLUCOSE (test code = 113 mg/dL 70-110 H 8341177468) CREATININE (test code = 1.17 mg/dL 0.60-1.25 1006224719) CALCIUM (test code = 7.6 mg/dL 8.6-10.6 L 8210295333) eGFR (test code = mL/min/1.73m2 6928894307) JUAN LUIS (test code = JUAN LUIS) [...] tests). Lab Interpretation Abnormal (test code = 64075-2) [facility] WITH [id number] 10:16:46 Test Item Value Reference Range Interpretation [...] (test code = 65.6 fL 38.5-51.6 H 76008-2) RDW-CV (test code = 23.0 % 12.1-15.4 H 788-0) PLT (test code = See_Comment [Automated 777-3) message] The sy stem which generated this result transmitted reference range : 150 - 328 10*3/ ?L. The reference r christine was not used to interpret this result as normal/abnormal . MPV (test code = 13.3 fL 9.8-13.0 H 96577-2) NRBC/100 WBC (test See_Comment [Automat ed code = 5905593595) message] The system which generated this result transmitted reference range : 0.0 - 10.0 /100 WBCs. The refer ence range was not u sed to interpret th is result as normal/abnormal . NRBC x10^3 (test code <0.01 See_Comment [Auto mated = 9904126688) message] The s ystem which generated this result transmitted reference range : 10*3/?L. The reference range was not used to interpret this result as normal/abnormal . GRAN MAT (NEUT) % 71.8 % (test code = 770-8) IMM GRAN % (test code 0.30 % = 4260659400) LYMPH % (test code = 17.7 % 736-9) MONO % (test code = 7.2 % 5905-5) EOS % (test code = 2.5 % 713-8) BASO % (test code = 0.5 % 706-2) GRAN MAT x10^3(ANC) 4.57 10*3/uL 1.99-6.95 (test code = 5398263337) IMM GRAN x10^3 (test <0.03 0.00-0.06 code = 5638382612) LYMPH x10^3 (test code 1.13 10*3/uL 1.09-3.23 = 731-0) MONO x10^3 (test code 0.46 10*3/uL 0.36-1.02 = 742-7) EOS x10^3 (test code = 0.16 10*3/uL 0.06-0.53 711-2) BASO x10^3 (test code 0.03 10*3/uL 0.01-0.09 = 704-7) Lab Interpretation Abnormal (test code = 35991-4) [facility] WITH [id number] 10:16:46 Test Item Value Reference Range Interpretation Comments WBC (test code = See_Comment [Automated 8390-2) message] The sy stem which generated this result transmitted reference range : 4.20 - 10.70 10*3/?L. The reference range was not used to interpret this result as normal/abnormal . RBC (test code = See_Comment L [Automated 019-8) message] The sy stem which generated this [...] (test code = 65.6 fL 38.5-51.6 H 01782-4) RDW-CV (test code = 23.0 % 12.1-15.4 H 788-0) PLT (test code = See_Comment [Automated 777-3) message] The sy stem which generated this result transmitted reference range : 150 - 328 10*3/ ?L. The reference r christine was not used to interpret this result as normal/abnormal . MPV (test code = 13.3 fL 9.8-13.0 H 03944-3) NRBC/100 WBC (test See_Comment [Automat ed code = 1668449704) message] The system which generated this result transmitted reference range : 0.0 - 10.0 /100 WBCs. The refer ence range was not u sed to interpret th is result as normal/abnormal . NRBC x10^3 (test code <0.01 See_Comment [Auto mated = 1285086048) message] The s ystem which generated this result transmitted reference range : 10*3/?L. The reference range was not used to interpret this result as normal/abnormal . GRAN MAT (NEUT) % 71.8 % (test code = 770-8) IMM GRAN % (test code 0.30 % = 9599234562) LYMPH % (test code = 17.7 % 736-9) MONO % (test code = 7.2 % 5905-5) EOS % (test code = 2.5 % 713-8) BASO % (test code = 0.5 % 706-2) GRAN MAT x10^3(ANC) 4.57 10*3/uL 1.99-6.95 (test code = 8813973835) IMM GRAN x10^3 (test <0.03 0.00-0.06 code = 1375780750) LYMPH x10^3 (test code 1.13 10*3/uL 1.09-3.23 = 731-0) MONO x10^3 (test code 0.46 10*3/uL 0.36-1.02 = 742-7) EOS x10^3 (test code = 0.16 10*3/uL 0.06-0.53 711-2) BASO x10^3 (test code 0.03 10*3/uL 0.01-0.09 = 704-7) Lab Interpretation Abnormal (test code = 54462-0) [facility] GLUCOSE (AUTOMATED)2020-11-08 05:43:41 Test Item Value Reference Range Interpretation Comments POCT GLU (test code = 8394918841) 123 mg/dL 70-110 H Lab Interpretation (test code = Abnormal 83832-0) [facility] GLUCOSE (AUTOMATED)2020-11-07 22:02:56 Test Item Value Reference Range Interpretation Comments POCT GLU (test code = 0256606032) 120 mg/dL 70-110 H Lab Interpretation (test code = Abnormal 06008-0) [facility] [id number] 15:30:56 Nonobstructive bowel gas pattern. Mild stool burden throughout the colon. Preliminary Report Dictated by Resident: Emleia Mcdonald I reviewed this study and agree. [...] this study and agree with theabove report. [facility] [id number] 14:18:52EXAM: XR CHEST 1 VW HISTORY: fever [...] skin folds on the right obscure the lungbases.[facility] 1 [id number] 14:18:52 EXAM: XR CHEST 1 VW HISTORY: [...] skin folds on the right obscure the lungbases.[facility] 2020-11-07 13:14:41 Test Item Value Reference Range Interpretation Comments POCT GLU (test code = 7870668527) 88 mg/dL 70-110 Lab Interpretation (test code = Normal 49181-0) [facility] METABOLIC PANEL (NA, K, CL, CO2, GLUCOSE, BUN, CREATININE, CA)2020-11-07 10:43:49 Test Item Value Reference Range Interpretation Comments NA (test code = 148 mmol/L 135-145 H 7709420225) K (test code = 4.1 mmol/L 3.5-5.0 6581185651) CL (test code = 113 mmol/L 98-108 H 2019916700) CO2 TOTAL (test code = 35 mmol/L 23-31 H 5298156455) AGAP (test code = <1 2-16 L 3537725013) BUN (test code = 45 mg/dL 7-23 H 0730697673) GLUCOSE (test code = 63 mg/dL 70-110 L 5588598539) CREATININE (test code = 1.33 mg/dL 0.60-1.25 H 9401049322) CALCIUM (test code = 8.0 mg/dL 8.6-10.6 L 6393618666) eGFR (test code = mL/min/1.73m2 9165442420) JUAN LUIS (test code = JUAN LUIS) [...] tests). Lab Interpretation Abnormal (test code = 15398-5) [facility] 10:42:07 Test Item Value Reference Range Interpretation Comments MAGNESIUM (test code = 3585002024) 2.7 mg/dL 1.7-2.4 H Lab Interpretation (test code = Abnormal 02736-6) [facility]2020-11-07 10:27:42 Test Item Value Reference Range Interpretation Comments POCT GLU (test code = 5060201428) 80 mg/dL 70-110 Lab Interpretation (test code = Normal 21440-2) [facility] WITHOUT [id number] 10:22:42 Test Item Value Reference Range Interpretation Comments WBC (test code = 6690-2) See_Comment [A utomated message] The system [employer] generated this result transmit tennille reference range : 4.20 - 10.70 10*3/?L. The reference range was not used to interpret this result as normal/abnormal . RBC (test code = 789-8) See_Comment L [Au tomated message] The system [employer] generated this result transmit tennille reference range [...] 777-3) See_Comment [Au tomated message] The system [employer] generated this result transmit tennille reference range : 150 - 328 10*3/?L. The reference range was not used to interpret this result as normal/abnormal . MPV (test code = 12.7 fL 9.8-13.0 40850-2) RDW-CV (test code = 23.8 % 12.1-15.4 H 788-0) RDW-SD (test code = 65.6 fL 38.5-51.6 H 03259-1) NRBC x10^3 (test code = <0.01 See_Comment [Au tomated message] 3776385045) The system [employer] generated this result transmit tennille reference range : 10*3/?L. The reference range was not used to interpret this result as normal/abnormal . NRBC/100 WBC (test code See_Comment [Au tomated message] = 7627325918) The system [employer] generated this result transmit tennille reference range : 0.0 - 10.0 /100 WBC s. The reference r christine was not used to interpret this result as normal/abnormal . IPF % (test code = 7451440302) Lab Interpretation (test Abnormal code = 29035-1) [facility] GLUCOSE (AUTOMATED)2020-11-07 05:14:24 Test Item Value Reference Range Interpretation Comments POCT GLU (test code = 2227975131) 87 mg/dL 70-110 Lab Interpretation (test code = Normal 54115-7) [facility] GLUCOSE (AUTOMATED)2020-11-06 22:50:06 Test Item Value Reference Range Interpretation Comments POCT GLU (test code = 2974177483) 80 mg/dL 70-110 Lab Interpretation (test code = Normal 78622-0) [facility] GLUCOSE (AUTOMATED)2020-11-06 16:50:42 Test Item Value Reference Range Interpretation Comments POCT GLU (test code = 5916277811) 146 mg/dL 70-110 H Lab Interpretation (test code = Abnormal 58459-9) [facility]2020-11-06 16:50:42 Test Item Value Reference Range Interpretation Comments POCT GLU (test code = 3243173418) 146 mg/dL 70-110 H Lab Interpretation (test code = Abnormal 61326-3) [facility] [id number] 12:14:44 Test Item Value Reference Range Interpretation Comments URINE CULTURE (test No aerobic growth (< code = 630-4) 1000 CFU/mL) [facility] [id number] 12:14:44 Test Item Value Reference Range Interpretation Comments URINE CULTURE (test No aerobic growth (< code = 630-4) 1000 CFU/mL) [facility] [id number] 12:14:44 Test Item Value Reference Range Interpretation Comments URINE CULTURE (test No aerobic growth (< code = 630-4) 1000 CFU/mL) [facility] 11:42:12 Test Item Value Reference Range Interpretation Comments MAGNESIUM (test code = 4338052385) 2.6 mg/dL 1.7-2.4 H Lab Interpretation (test code = Abnormal 98547-2) [facility] (NA, K, CL, CO2, GLUCOSE, BUN, CREATININE, CA)2020-11-06 11:42:12 Test Item Value Reference Range Interpretation Comments NA (test code = 146 mmol/L 135-145 H 1114842959) K (test code = 4.0 mmol/L 3.5-5.0 9343537325) CL (test code = 112 mmol/L 98-108 H 3966809764) CO2 TOTAL (test code = 32 mmol/L 23-31 H 7746040229) AGAP (test code = 2-16 9245017268) BUN (test code = 47 mg/dL 7-23 H 1487795340) GLUCOSE (test code = 176 mg/dL 70-110 H 5988231509) CREATININE (test code = 1.33 mg/dL 0.60-1.25 H 1160231114) CALCIUM (test code = 7.9 mg/dL 8.6-10.6 L 4449783003) eGFR (test code = mL/min/1.73m2 8700090187) JUAN LUIS (test code = JUAN LUIS) [...] tests). Lab Interpretation Abnormal (test code = 64968-1) [facility] (NA, K, CL, CO2, GLUCOSE, BUN, CREATININE, CA)2020-11-06 11:42:12 Test Item Value Reference Range Interpretation Comments NA (test code = 146 mmol/L 135-145 H 6583348086) K (test code = 4.0 mmol/L 3.5-5.0 8876494381) CL (test code = 112 mmol/L 98-108 H 2405624166) CO2 TOTAL (test code = 32 mmol/L 23-31 H 3406952204) AGAP (test code = 2-16 5496032906) BUN (test code = 47 mg/dL 7-23 H 7177975173) GLUCOSE (test code = 176 mg/dL 70-110 H 2398863698) CREATININE (test code = 1.33 mg/dL 0.60-1.25 H 3401310082) CALCIUM (test code = 7.9 mg/dL 8.6-10.6 L 4007125613) eGFR (test code = mL/min/1.73m2 9095467655) JUAN LUIS (test code = JUAN LUIS) [...] tests). Lab Interpretation Abnormal (test code = 55253-7) [facility] 11:42:12 Test Item Value Reference Range Interpretation Comments MAGNESIUM (test code = 2183920787) 2.6 mg/dL 1.7-2.4 H Lab Interpretation (test code = Abnormal 00421-8) [facility] WITHOUT [id number] 11:35:08 Test Item Value Reference Range Interpretation Comments WBC (test code = 6690-2) See_Comment [A utomated message] The system [employer] generated this result transmit tennille reference range : 4.20 - 10.70 10*3/?L. The reference range was not used to interpret this result as normal/abnormal . RBC (test code = 789-8) See_Comment L [Au tomated message] The system [employer] generated this result transmit tennille reference range [...] 777-3) See_Comment [Au tomated message] The system [facility] generated this result transmit tennille reference range : 150 - 328 10*3/?L. The reference range was not used to interpret this result as normal/abnormal . MPV (test code = 13.6 fL 9.8-13.0 H 25262-6) RDW-CV (test code = 23.8 % 12.1-15.4 H 788-0) RDW-SD (test code = 66.0 fL 38.5-51.6 H 91782-2) NRBC x10^3 (test code = <0.01 See_Comment [Au tomated message] 2686644656) The system [facility] generated this result transmit tennille reference range : 10*3/?L. The reference range was not used to interpret this result as normal/abnormal . NRBC/100 WBC (test code See_Comment [Au tomated message] = 1484715790) The system [facility] generated this result transmit tennille reference range : 0.0 - 10.0 /100 WBC s. The reference r christine was not used to interpret this result as normal/abnormal . IPF % (test code = 3709036546) Lab Interpretation (test Abnormal code = 81109-7) [facility] WITHOUT [id number] 11:35:08 Test Item Value Reference Range Interpretation Comments WBC (test code = 6690-2) See_Comment [A utomated message] The system [employer] generated this result transmit tennille reference range : 4.20 - 10.70 10*3/?L. The reference range was not used to interpret this result as normal/abnormal . RBC (test code = 789-8) See_Comment L [Au tomated message] The system [employer] generated this result transmit tennille reference range [...] 777-3) See_Comment [Au tomated message] The system [employer] generated this result transmit tennille reference range : 150 - 328 10*3/?L. The reference range was not used to interpret this result as normal/abnormal . MPV (test code = 13.6 fL 9.8-13.0 H 78720-0) RDW-CV (test code = 23.8 % 12.1-15.4 H 788-0) RDW-SD (test code = 66.0 fL 38.5-51.6 H 28996-6) NRBC x10^3 (test code = <0.01 See_Comment [Au tomated message] 8435423823) The system [employer] generated this result transmit tennille reference range : 10*3/?L. The reference range was not used to interpret this result as normal/abnormal . NRBC/100 WBC (test code See_Comment [Au tomated message] = 7014953875) The system [facility] generated this result transmit tennille reference range : 0.0 - 10.0 /100 WBC s. The reference r christine was not used to interpret this result as normal/abnormal . IPF % (test code = 1384200722) Lab Interpretation (test Abnormal code = 00786-9) [facility]2020-11-06 11:12:42 Test Item Value Reference Range Interpretation Comments POCT GLU (test code = 9163041166) 206 mg/dL 70-110 H Lab Interpretation (test code = Abnormal 89735-8) [facility]IT[facility], [id number] 07:41:26 Test Item Value Reference Range Interpretation Comments VIT B6 (test code = 10 nmol/L 20.0-125.0 L INTERPRE TIVE 79924-5) INFORMATION: Vi tamin B6 (Pyridoxal 5-Phosphate) Py ridoxal 5'-phosphate me asured in a specimen collected follo wing an 8-hour or overn ight fast accurately indicates vitam in B6 nutritional sta tus. Non-fasting spe cimen concentration r eflects recent vitamin intake. This test was developed and i ts performance characteristics determined by [facility]. I t has not been cleare d or approved by the [place] Food and Drug Administration. This test was perfor med in a CLIA certifie d laboratory and is intended for cl inical purposes.Perfor med By: NESHA Flori [address] [place] [id number] Director: Dori Crum MD Lab Interpretation Abnormal (test code = 04106-2) [facility], [id number] 07:41:26 Test Item Value Reference Range Interpretation Comments VIT B6 (test code = 10 nmol/L 20.0-125.0 L INTERPRE TIVE 06266-7) INFORMATION: Vi tamin B6 (Pyridoxal 5-Phosphate) Py ridoxal 5'-phosphate me asured in a specimen collected follo wing an 8-hour or overn ight fast accurately indicates vitam in B6 nutritional sta tus. Non-fasting spe cimen concentration r eflects recent vitamin intake. This test was developed and i ts performance characteristics determined by [facility]. I t has not been cleare d or approved by the [place] Food and Drug Administration. This test was perfor med in a CLIA certifie d laboratory and is intended for cl inical purposes.Perfor med By: [facility] [[email or web address]] [address] [place], [place] [address]Nkdwphtgru Director: Dori rCum MD Lab Interpretation Abnormal (test code = 24022-3) [facility], [id number] 07:41:26 Test Item Value Reference Range Interpretation Comments VIT B6 (test code = 10 nmol/L 20.0-125.0 L INTERPRE TIVE 10296-7) INFORMATION: Vi tamin B6 (Pyridoxal 5-Phosphate) Py ridoxal 5'-phosphate me asured in a specimen collected follo wing an 8-hour or overn ight fast accurately indicates vitam in B6 nutritional sta tus. Non-fasting spe cimen concentration r eflects recent vitamin intake. This test was developed and i ts performance characteristics determined by [facility]. I t has not been cleare d or approved by the [place] Food and Drug Administration. This test was perfor med in a CLIA certifie d laboratory and is intended for cl inical purposes.Perfor med By: [facility] [[email or web address]] [address] [place], [place] [address]Jzusoizxvv Director: Dori Crum MD Lab Interpretation Abnormal (test code = 67588-4) [facility]2020-11-06 05:08:09 Test Item Value Reference Range Interpretation Comments POCT GLU (test code = 7611869574) 175 mg/dL 70-110 H Lab Interpretation (test code = Abnormal 97534-0) [facility] (THIAMINE), WHOLE [id number] 00:12:20 Test Item Value Reference Range Interpretation Comments Vitamin B1, Whole 104 nmol/L 70-180 INTERPRETI VE INFORMATION: Blood (test code = Vitamin B 1, Whole Blood 33485-5) This assay gal ures the concentration o f thiamine diphosphate (TD P), the primary active form of vitamin B1. Nataly roximately 90 percent of v itamin B1 present in whol e blood is TDP. Thiamine a nd thiamine monoph osphate, which comprise the remaining 10 pe rcent, are not measured. T his test was developed a nd its performance characteristics determined by [facility]. I t has not been cleared or approved by the [place] Food and Drug Administration. This test was performed i n a CLIA certified labor atory and is intended for clinical purposes.Perfor med By: [address] [id number] aboratory Director: Dori Crum MD [facility] (THIAMINE), WHOLE [id number] 00:12:20 Test Item Value Reference Range Interpretation Comments Vitamin B1, Whole 104 nmol/L 70-180 INTERPRETI VE INFORMATION: Blood (test code = Vitamin B 1, Whole Blood 57937-6) This assay gal ures the concentration o f thiamine diphosphate (TD P), the primary active form of vitamin B1. Nataly roximately 90 percent of v itamin B1 present in whol e blood is TDP. Thiamine a nd thiamine monoph osphate, which comprise the remaining 10 pe rcent, are not measured. T his test was developed a nd its performance characteristics determined by [facility]. I t has not been cleared or approved by the [place] Food and Drug Administration. This test was performed i n a CLIA certified labor atory and is intended for clinical purposes.Perfor med By: [address] [id number] aboratory Director: Dori Crum MD [facility] (THIAMINE), WHOLE [id number] 00:12:20 Test Item Value Reference Range Interpretation Comments Vitamin B1, Whole 104 nmol/L 70-180 INTERPRETI VE INFORMATION: Blood (test code = Vitamin B 1, Whole Blood 32865-1) This assay gal ures the concentration o f thiamine diphosphate (TD P), the primary active form of vitamin B1. Nataly roximately 90 percent of v itamin B1 present in whol e blood is TDP. Thiamine a nd thiamine monoph osphate, which comprise the remaining 10 pe rcent, are not measured. T his test was developed a nd its performance characteristics determined by [facility]. I t has not been cleared or approved by the [place] Food and Drug Administration. This test was performed i n a CLIA certified labor ator and is intended for clinical purposes.Perfor med By: [address] [address] aboratory Director: Dori Crum MD [facility] 18:42:54 Test Item Value Reference Range Interpretation Comments POCT GLU (test code = 3698724537) 139 mg/dL 70-110 H Lab Interpretation (test code = Abnormal 77877-3) [facility] [id number] 12:13:36 Test Item Value Reference Range Interpretation Comments CSF CULTURE (test No organisms isolated code = 606-4) Gram stain (test code Occasional (Rare) = 664-3) Mononuclear cells [facility] [id number] 12:13:36 Test Item Value Reference Range Interpretation Comments CSF CULTURE (test No organisms isolated code = 606-4) Gram stain (test code Occasional (Rare) = 664-3) Mononuclear cells [facility] [id number] 12:13:36 Test Item Value Reference Range Interpretation Comments CSF CULTURE (test No organisms isolated code = 606-4) Gram stain (test code Occasional (Rare) = 664-3) Mononuclear cells [facility] GLUCOSE (AUTOMATED)2020-11-05 11:19:24 Test Item Value Reference Range Interpretation Comments POCT GLU (test code = 4903748472) 186 mg/dL 70-110 H Lab Interpretation (test code = Abnormal 89723-2) [facility] METABOLIC PANEL (NA, K, CL, CO2, GLUCOSE, BUN, CREATININE, CA)2020-11-05 10:23:43 Test Item Value Reference Range Interpretation Comments NA (test code = 147 mmol/L 135-145 H 5486354963) K (test code = 3.9 mmol/L 3.5-5.0 6612133270) CL (test code = 115 mmol/L 98-108 H 2615591439) CO2 TOTAL (test code = 29 mmol/L 23-31 8083393174) AGAP (test code = 2-16 1756140417) BUN (test code = 47 mg/dL 7-23 H 3077261465) GLUCOSE (test code = 157 mg/dL 70-110 H 3160095059) CREATININE (test code = 1.35 mg/dL 0.60-1.25 H 6503383511) CALCIUM (test code = 8.0 mg/dL 8.6-10.6 L 5325258237) eGFR (test code = mL/min/1.73m2 6171025889) JUAN LUIS (test code = JUAN LUIS) [...] tests). Lab Interpretation Abnormal (test code = 81227-9) [facility] 10:23:43 Test Item Value Reference Range Interpretation Comments MAGNESIUM (test code = 2572479416) 2.7 mg/dL 1.7-2.4 H Lab Interpretation (test code = Abnormal 88733-5) [facility] WITHOUT [id number] 09:54:56 Test Item Value Reference Range Interpretation Comments WBC (test code = 6690-2) See_Comment H [A utomated message] The system [employer] generated this result transmit tennille reference range : 4.20 - 10.70 10*3/?L. The reference range was not used to interpret this result as normal/abnormal . RBC (test code = 789-8) See_Comment L [Au tomated message] The system [employer] generated this result transmit tennille reference range [...] 777-3) See_Comment [Au tomated message] The system [employer] generated this result transmit tennille reference range : 150 - 328 10*3/?L. The reference range was not used to interpret this result as normal/abnormal . MPV (test code = 12.5 fL 9.8-13.0 63681-1) RDW-CV (test code = 23.9 % 12.1-15.4 H 788-0) RDW-SD (test code = 66.3 fL 38.5-51.6 H 33080-8) NRBC x10^3 (test code = <0.01 See_Comment [Au tomated message] 9708800737) The system [employer] generated this result transmit tennille reference range : 10*3/?L. The reference range was not used to interpret this result as normal/abnormal . NRBC/100 WBC (test code See_Comment [Au tomated message] = 3813555285) The system [facility] generated this result transmit tennille reference range : 0.0 - 10.0 /100 WBC s. The reference r christine was not used to interpret this result as normal/abnormal . IPF % (test code = 8562291446) Lab Interpretation (test Abnormal code = 85975-8) [facility]2020-11-05 04:55:22 Test Item Value Reference Range Interpretation Comments POCT GLU (test code = 0620105132) 112 mg/dL 70-110 H Lab Interpretation (test code = Abnormal 74808-4) [facility]PO[facility] [id number] 23:58:26 Test Item Value Reference Interpretation Comments Range TPO Ab IgG (test See_Comment [Automated code = 9056618948) message] The system which generated this result [...] Graves'disease. Lab Interpretation Normal (test code = 90469-2) [facility] [id number] 23:58:26 Test Item Value Reference Interpretation Comments Range TPO Ab IgG (test See_Comment [Automated code = 0624391151) message] The system which generated this result [...] Graves'disease. Lab Interpretation Normal (test code = 47378-7) [facility] [id number] 23:58:26 Test Item Value Reference Interpretation Comments Range TPO Ab IgG (test See_Comment [Automated code = 7931633879) message] The system which generated this result [...] Graves'disease. Lab Interpretation Normal (test code = 75484-6) [facility]2020-11-04 22:59:44 Test Item Value Reference Range Interpretation Comments POCT GLU (test code = 1941490896) 89 mg/dL 70-110 Lab Interpretation (test code = Normal 74480-5) [facility] [id number] 22:07:20 The contrast material is identified in [...] have reviewed thisstudy and agree withthe above report.[facility] [id number] 22:07:20 The contrast material is identified in [...] have reviewed thisstudy and agree withthe above report.[facility] [id number] 22:07:20 The contrast material is identified in [...] spine spondylotic changes. Soft tissues are unremarkable. Mamb, Radiant Results Inft User - 11/04/2020 5:08 [...] the midpelvis.Preliminary Report Dictated by Resident: Milton Stovallva-Renee, MD., have reviewed thisstudy and agree withthe above report.[facility]2020-11-04 16:52:36 Test Item Value Reference Range Interpretation Comments POCT GLU (test code = 6737208800) 134 mg/dL 70-110 H Lab Interpretation (test code = Abnormal 87222-2) [facility]PROT[facility] / [id number] 16:29:11 Test Item Value Reference Range Interpretation Comments PROTIME PATIENT (test See_Comment H [Auto mated message] code = 5964-2) The system [employer] generated this result transmitted ref erence range: 10.1 - 1 2.6 Seconds. The reference range was not used to int erpret this result as normal/abnormal . INR (test code = 6301-6) Nor mal INR <1.1; Warfarin Therap eutic range 2.0 to 3. 0 or 2.5 to 3.5, dep ending upon the indica tions. Lab Interpretation (test Abnormal code = 52029-7) [facility] / [id number] 16:29:11 Test Item Value Reference Range Interpretation Comments PROTIME PATIENT (test See_Comment H [Auto mated message] code = 5964-2) The system [employer] generated this result transmitted ref erence range: 10.1 - 1 2.6 Seconds. The reference range was not used to int erpret this result as normal/abnormal . INR (test code = 6301-6) Nor mal INR <1.1; Warfarin Therap eutic range 2.0 to 3. 0 or 2.5 to 3.5, dep ending upon the indica tions. Lab Interpretation (test Abnormal code = 42216-6) [facility] / [id number] 16:29:11 Test Item Value Reference Range Interpretation Comments PROTIME PATIENT (test See_Comment H [Auto mated message] code = 5964-2) The system [employer] generated this result transmitted ref erence range: 10.1 - 1 2.6 Seconds. The reference range was not used to int erpret this result as normal/abnormal . INR (test code = 6301-6) Nor mal INR <1.1; Warfarin Therap eutic range 2.0 to 3. 0 or 2.5 to 3.5, dep ending upon the indica tions. Lab Interpretation (test Abnormal code = 95572-8) [facility] GLUCOSE (AUTOMATED)2020-11-04 15:23:28 Test Item Value Reference Range Interpretation Comments POCT GLU (test code = 1351208070) 144 mg/dL 70-110 H Lab Interpretation (test code = Abnormal 10437-0) [facility] METABOLIC PANEL (NA, K, CL, CO2, GLUCOSE, BUN, CREATININE, CA)2020-11-04 10:53:10 Test Item Value Reference Range Interpretation Comments NA (test code = 151 mmol/L 135-145 H 0081182417) K (test code = 3.8 mmol/L 3.5-5.0 7993245556) CL (test code = 119 mmol/L 98-108 H 5099465109) CO2 TOTAL (test code = 27 mmol/L 23-31 6662448878) AGAP (test code = 2-16 7466019963) BUN (test code = 48 mg/dL 7-23 H 9310504952) GLUCOSE (test code = 131 mg/dL 70-110 H 8118771529) CREATININE (test code = 1.36 mg/dL 0.60-1.25 H 2573812168) CALCIUM (test code = 8.1 mg/dL 8.6-10.6 L 5777217107) eGFR (test code = mL/min/1.73m2 8099670984) JUAN LUIS (test code = JUAN LUIS) [...] tests). Lab Interpretation Abnormal (test code = 64511-9) [facility] 10:48:27 Test Item Value Reference Range Interpretation Comments MAGNESIUM (test code = 4250385927) 2.6 mg/dL 1.7-2.4 H Lab Interpretation (test code = Abnormal 60556-4) [facility] WITHOUT [id number] 10:27:45 Test Item Value Reference Range Interpretation Comments WBC (test code = See_Comment H [Automated message] 6690-2) The system [employer] generated this result transmitted ref erence range: 4.20 - 1 0.70 10*3/?L. The reference range was not used to int erpret this result as normal/abnormal . RBC (test code = 789-8) See_Comment L [Au tomated message] The system [employer] generated this result transmitted ref erence range: [...] 777-3) See_Comment [Au tomated message] The system [employer] generated this result transmitted ref erence range: 150 - 32 8 10*3/?L. The reference range was not used to int erpret this result as normal/abnormal . MPV (test code = Not Measure d 22689-0) RDW-CV (test code = 24.3 % 12.1-15.4 H 788-0) RDW-SD (test code = 68.2 fL 38.5-51.6 H 12465-1) NRBC x10^3 (test code = See_Comment [Au tomated message] 2741798726) The system [employer] generated this result transmitted ref erence range: 10*3/?L. The reference range was not used to int erpret this result as normal/abnormal . NRBC/100 WBC (test code See_Comment [Au tomated message] = 9859083133) The system [employer] generated this result transmitted ref erence range: 0.0 - 10 .0 /100 WBCs. The reference range was not used to int erpret this result as normal/abnormal . IPF % (test code = 10.2 % 1.2-10.7 Platelet count 1917585855) measured by fluorescence me thod. Lab Interpretation Abnormal (test code = 58748-7) [facility]2020-11-03 16:55:39 Test Item Value Reference Range Interpretation Comments POCT GLU (test code = 9328912699) 123 mg/dL 70-110 H Lab Interpretation (test code = Abnormal 67656-0) [facility] METABOLIC PANEL (NA, K, CL, CO2, GLUCOSE, BUN, CREATININE, CA)2020-11-03 13:46:00 Test Item Value Reference Range Interpretation Comments NA (test code = 148 mmol/L 135-145 H 6422658755) K (test code = 4.7 mmol/L 3.5-5.0 9082154677) CL (test code = 120 mmol/L 98-108 H 3862552187) CO2 TOTAL (test code = 26 mmol/L 23-31 7397356268) AGAP (test code = 2-16 2703136429) BUN (test code = 47 mg/dL 7-23 H 6052214687) GLUCOSE (test code = 176 mg/dL 70-110 H 8280920687) CREATININE (test code = 1.35 mg/dL 0.60-1.25 H 3423779164) CALCIUM (test code = 8.0 mg/dL 8.6-10.6 L 6013012859) eGFR (test code = mL/min/1.73m2 5629063421) JUAN LUIS (test code = JUAN LUIS) [...] tests). Lab Interpretation Abnormal (test code = 95964-3) [facility] 13:34:53 Test Item Value Reference Range Interpretation Comments MAGNESIUM (test code = 4145262127) 2.8 mg/dL 1.7-2.4 H Lab Interpretation (test code = Abnormal 85606-9) [facility]2020-11-03 12:57:44 Test Item Value Reference Range Interpretation Comments POCT GLU (test code = 8905339641) 190 mg/dL 70-110 H Lab Interpretation (test code = Abnormal 36771-2) [facility] WITH [id number] 11:16:10 Test Item Value Reference Range Interpretation [...] (test code = 62.2 fL 38.5-51.6 H 27918-4) RDW-CV (test code = 23.3 % 12.1-15.4 H 788-0) PLT (test code = See_Comment [Automated 777-3) message] The sy stem which generated this result transmitted reference range : 150 - 328 10*3/ ?L. The reference r christine was not used to interpret this result as normal/abnormal . MPV (test code = Not Measure d 56949-5) IPF % (test code = 8.2 % 1.2-10.7 Platelet count 0521895850) measured by fluorescence method. NRBC/100 WBC (test See_Comment [Automat ed code = 8878002693) message] The system which generated this result transmitted reference range : 0.0 - 10.0 /100 WBCs. The refer ence range was not u sed to interpret th is result as normal/abnormal . NRBC x10^3 (test code See_Comment [Auto mated = 1753737638) message] The s ystem which generated this result transmitted reference range : 10*3/?L. The reference range was not used to interpret this result as normal/abnormal . GRAN MAT (NEUT) % 80.9 % (test code = 770-8) IMM GRAN % (test code 0.50 % = 5579028516) LYMPH % (test code = 5.3 % 736-9) MONO % (test code = 11.6 % 5905-5) EOS % (test code = 1.5 % 713-8) BASO % (test code = 0.2 % 706-2) GRAN MAT x10^3(ANC) 10.75 10*3/uL 1.99-6.95 H (test code = 6075268220) IMM GRAN x10^3 (test 0.06 10*3/uL 0.00-0.06 code = 9003912386) LYMPH x10^3 (test 0.71 10*3/uL 1.09-3.23 L code = 731-0) MONO x10^3 (test code 1.54 10*3/uL 0.36-1.02 H = 742-7) EOS x10^3 (test code 0.20 10*3/uL 0.06-0.53 = 711-2) BASO x10^3 (test code 0.03 10*3/uL 0.01-0.09 = 704-7) BASO STIPPLING (test Present A code = 703-9) SCHISTOCYTES (test 1+ A code = 800-3) Lab Interpretation Abnormal (test code = 58517-7) [facility] WITH [id number] 11:16:10 Test Item Value Reference Range Interpretation Comments WBC (test code = See_Comment H [Automated 6490-2) message] The sy stem which generated this result transmitted reference range : 4.20 - 10.70 10*3/?L. The reference range was not used to interpret this result as normal/abnormal . RBC (test code = See_Comment L [Automated 179-8) message] The sy stem which generated this [...] (test code = 62.2 fL 38.5-51.6 H 19548-6) RDW-CV (test code = 23.3 % 12.1-15.4 H 788-0) PLT (test code = See_Comment [Automated 777-3) message] The sy stem which generated this result transmitted reference range : 150 - 328 10*3/ ?L. The reference r christine was not used to interpret this result as normal/abnormal . MPV (test code = Not Measure d 24899-2) IPF % (test code = 8.2 % 1.2-10.7 Platelet count 2596348593) measured by fluorescence method. NRBC/100 WBC (test See_Comment [Automat ed code = 8129737185) message] The system which generated this result transmitted reference range : 0.0 - 10.0 /100 WBCs. The refer ence range was not u sed to interpret th is result as normal/abnormal . NRBC x10^3 (test code See_Comment [Auto mated = 3742713468) message] The s ystem which generated this result transmitted reference range : 10*3/?L. The reference range was not used to interpret this result as normal/abnormal . GRAN MAT (NEUT) % 80.9 % (test code = 770-8) IMM GRAN % (test code 0.50 % = 3693685677) LYMPH % (test code = 5.3 % 736-9) MONO % (test code = 11.6 % 5905-5) EOS % (test code = 1.5 % 713-8) BASO % (test code = 0.2 % 706-2) GRAN MAT x10^3(ANC) 10.75 10*3/uL 1.99-6.95 H (test code = 2837278918) IMM GRAN x10^3 (test 0.06 10*3/uL 0.00-0.06 code = 7005302467) LYMPH x10^3 (test 0.71 10*3/uL 1.09-3.23 L code = 731-0) MONO x10^3 (test code 1.54 10*3/uL 0.36-1.02 H = 742-7) EOS x10^3 (test code 0.20 10*3/uL 0.06-0.53 = 711-2) BASO x10^3 (test code 0.03 10*3/uL 0.01-0.09 = 704-7) BASO STIPPLING (test Present A code = 703-9) SCHISTOCYTES (test 1+ A code = 800-3) Lab Interpretation Abnormal (test code = 09445-7) [facility] GLUCOSE (AUTOMATED)2020-11-03 10:14:51 Test Item Value Reference Range Interpretation Comments POCT GLU (test code = 6683269353) 198 mg/dL 70-110 H Lab Interpretation (test code = Abnormal 84354-1) [facility] GLUCOSE (AUTOMATED)2020-11-03 04:39:58 Test Item Value Reference Range Interpretation Comments POCT GLU (test code = 8253431968) 169 mg/dL 70-110 H Lab Interpretation (test code = Abnormal 83581-1) [facility] METABOLIC PANEL (NA, K, CL, CO2, GLUCOSE, BUN, CREATININE, CA)2020-11-03 02:59:33 Test Item Value Reference Range Interpretation Comments NA (test code = 150 mmol/L 135-145 H 0132581473) K (test code = 4.8 mmol/L 3.5-5.0 Slight 4664572755) hemolysis CL (test code = 121 mmol/L 98-108 H 0619074798) CO2 TOTAL (test code 24 mmol/L 23-31 = 6481471987) AGAP (test code = 2-16 9295353492) BUN (test code = 48 mg/dL 7-23 H Slight 5770046245) hemolysis GLUCOSE (test code = 135 mg/dL 70-110 H 4154910212) CREATININE (test code 1.25 mg/dL 0.60-1.25 = 7387239009) CALCIUM (test code = 7.7 mg/dL 8.6-10.6 L 7720893770) eGFR (test code = mL/min/1.73m2 0618917171) JUAN LUIS (test code = JUAN LUIS) [...] tests). Lab Interpretation Abnormal (test code = 53787-7) [facility] Test Item Value Reference Range Interpretation Comments MAGNESIUM (test code = 1780756979) 2.5 mg/dL 1.7-2.4 H Lab Interpretation (test code = Abnormal 79590-2) [facility] BY [id number] 23:12:08 Test Item Value Reference Range Interpretation Comments Escherichia coli K1 Negative Negative, (test code = 67437-5) Indeterminate, See Comment Haemophilus influenzae Negative Negative, (test code = 43925-9) Indeterminate, See Comment Listeria monocytogenes Negative Negative, (test code = 49294-8) Indeterminate, See Comment Neisseria meningitidis Negative Negative, (encapsulated) (test Indeterminate, code = 29577-9) See Comment Streptococcus agalactiae Negative Negative, (test code = 71604-7) Indeterminate, See Comment Streptococcus pneumoniae Negative Negative, (test code = 59184-9) Indeterminate, See Comment Cytomegalovirus (test Negative Negative, code = 22741-0) Indeterminate, See Comment Enterovirus (test code = Negative Negative, 16962-1) Indeterminate, See Comment Herpes simplex virus 1 Negative Negative, (test code = 16054-0) Indeterminate, See Comment Herpes simplex virus 2 Negative Negative, (test code = 75695-8) Indeterminate, See Comment Human herpesvirus 6 Negative Negative, (test code = 06498-8) Indeterminate, See Comment Human parechovirus (test Negative Negative, code = 64860-2) Indeterminate, See Comment Varicella zoster virus Negative Negative, (test code = 94806-3) Indeterminate, See Comment Cryptococcus Negative Negative, neoformans/gattii (test Indeterminate, code = 70980-8) See Comment JUAN LUIS (test code = JUAN LUIS) Negative:A negative result does not rule-out infection. ?This assay does not test for all potential infectious agents. Positive:A positive test result does not necessarily indicate the presence of viable organism. ? Lab Interpretation (test Normal code = 37054-2) [facility] BY [id number] 23:12:08 Test Item Value Reference Range Interpretation Comments Escherichia coli K1 Negative Negative, (test code = 73761-1) Indeterminate, See Comment Haemophilus influenzae Negative Negative, (test code = 02270-1) Indeterminate, See Comment Listeria monocytogenes Negative Negative, (test code = 96242-1) Indeterminate, See Comment Neisseria meningitidis Negative Negative, (encapsulated) (test Indeterminate, code = 47787-2) See Comment Streptococcus agalactiae Negative Negative, (test code = 13511-7) Indeterminate, See Comment Streptococcus pneumoniae Negative Negative, (test code = 97332-4) Indeterminate, See Comment Cytomegalovirus (test Negative Negative, code = 23919-6) Indeterminate, See Comment Enterovirus (test code = Negative Negative, 07495-5) Indeterminate, See Comment Herpes simplex virus 1 Negative Negative, (test code = 09924-1) Indeterminate, See Comment Herpes simplex virus 2 Negative Negative, (test code = 36452-0) Indeterminate, See Comment Human herpesvirus 6 Negative Negative, (test code = 43408-2) Indeterminate, See Comment Human parechovirus (test Negative Negative, code = 27567-7) Indeterminate, See Comment Varicella zoster virus Negative Negative, (test code = 81559-9) Indeterminate, See Comment Cryptococcus Negative Negative, neoformans/gattii (test Indeterminate, code = 92017-3) See Comment JUAN LUIS (test code = JUAN LUIS) Negative:A negative result does not rule-out infection. ?This assay does not test for all potential infectious agents. Positive:A positive test result does not necessarily indicate the presence of viable organism. ? Lab Interpretation (test Normal code = 76803-9) [facility] BY [id number] 23:12:08 Test Item Value Reference Range Interpretation Comments Escherichia coli K1 Negative Negative, (test code = 80929-7) Indeterminate, See Comment Haemophilus influenzae Negative Negative, (test code = 62365-2) Indeterminate, See Comment Listeria monocytogenes Negative Negative, (test code = 30536-3) Indeterminate, See Comment Neisseria meningitidis Negative Negative, (encapsulated) (test Indeterminate, code = 40768-4) See Comment Streptococcus agalactiae Negative Negative, (test code = 25861-8) Indeterminate, See Comment Streptococcus pneumoniae Negative Negative, (test code = 72367-0) Indeterminate, See Comment Cytomegalovirus (test Negative Negative, code = 34103-9) Indeterminate, See Comment Enterovirus (test code = Negative Negative, 51169-3) Indeterminate, See Comment Herpes simplex virus 1 Negative Negative, (test code = 30408-7) Indeterminate, See Comment Herpes simplex virus 2 Negative Negative, (test code = 99174-9) Indeterminate, See Comment Human herpesvirus 6 Negative Negative, (test code = 68936-1) Indeterminate, See Comment Human parechovirus (test Negative Negative, code = 86317-3) Indeterminate, See Comment Varicella zoster virus Negative Negative, (test code = 14415-3) Indeterminate, See Comment Cryptococcus Negative Negative, neoformans/gattii (test Indeterminate, code = 76163-0) See Comment JUAN LUIS (test code = JUAN LUIS) Negative:A negative result does not rule-out infection. ?This assay does not test for all potential infectious agents. Positive:A positive test result does not necessarily indicate the presence of viable organism. ? Lab Interpretation (test Normal code = 84110-6) [facility] GLUCOSE (AUTOMATED)2020-11-02 22:21:28 Test Item Value Reference Range Interpretation Comments POCT GLU (test code = 4519263062) 94 mg/dL 70-110 Lab Interpretation (test code = Normal 03856-2) [facility] FLUID DIRECT [id number] 22:15:37 Test Item Value Reference Range Interpretation Comments BF COLOR (test code = Clear 9491544187) BF WBC Count (test See_Comment [Automat ed message] The code = 7720144496) system [facility] generated this result transmit tennille reference range : 0 - 5 /?L. The reference r christine was not used to interpr et this result as bri l/abnormal. BF RBC Count (test See_Comment [Automat ed message] The code = 0875846421) system [facility] generated this result transmit tennille reference range : /?L. The reference range was not used to interpr et this result as rbi l/abnormal. [facility] FLUID DIRECT [id number] 22:15:37 Test Item Value Reference Range Interpretation Comments BF COLOR (test code = Clear 0941378389) BF WBC Count (test See_Comment [Automat ed message] The code = 9172610635) system [facility] generated this result transmit tennille reference range : 0 - 5 /?L. The reference r christine was not used to interpr et this result as bri l/abnormal. BF RBC Count (test See_Comment [Automat ed message] The code = 1584235380) system [facility] generated this result transmit tennille reference range : /?L. The reference range was not used to interpr et this result as bri l/abnormal. [facility] FLUID DIRECT [id number] 22:15:37 Test Item Value Reference Range Interpretation Comments BF COLOR (test code = Clear 6306337362) BF WBC Count (test See_Comment [Automat ed message] The code = 3521062925) system [facility] generated this result transmit tennille reference range : 0 - 5 /?L. The reference r christine was not used to interpr et this result as bri l/abnormal. BF RBC Count (test See_Comment [Automat ed message] The code = 3638380572) system [facility] generated this result transmit tennille reference range : /?L. The reference range was not used to interpr et this result as bri l/abnormal. [facility] FLUID MANUAL [id number] 22:15:37#CELS CNTDUTMB LABORATORY SERVICESLess than 100 cells counted due to low WBC; Differential is not reported in percent. ?44 cells counted: ?0 Neutrophils, 17 Lymphocytes, 27 MacrophagesUn[facility] FL[facility]UAL [id number] 22:15:37#CELS CNTDUTMB LABORATORY SERVICESLess than 100 cells counted due to low WBC; Differential is not reported in percent. ?44 cells counted: ?0 Neutrophils, 17 Lymphocytes, 27 MacrophagesUnEl [facility] HospitalBODY FLUID MANUAL [id number] 22:15:37#CELS CNTDUTMB LABORATORY SERVICESLess than 100 cells counted due to low WBC; Differential is not reported in percent. ?44 cells counted: ?0 Neutrophils, 17 Lymphocytes, 27 Macrophages [facility] [id number] 21:46:09 Test Item Value Reference Range Interpretation Comments GLU CSF (test code = 9351241032) 80 mg/dL 50-80 UNSPUN BODY FLUID COLOR (test Colorless code = 0933197340) UNSPUN BODY FLUID CLARITY (test Clear code = 5991862570) SPUN BODY FLUID COLOR (test code Colorless = 8855249963) SPUN BODY FLUID CLARITY (test Clear code = 1879204586) Sediment (test code = No sediment. 9183418795) [facility] [id number] 21:46:09 Test Item Value Reference Range Interpretation Comments GLU CSF (test code = 8751682728) 80 mg/dL 50-80 UNSPUN BODY FLUID COLOR (test Colorless code = 4988930763) UNSPUN BODY FLUID CLARITY (test Clear code = 5980141974) SPUN BODY FLUID COLOR (test code Colorless = 6774433217) SPUN BODY FLUID CLARITY (test Clear code = 7502614913) Sediment (test code = No sediment. 9139448209) [facility] [id number] 21:46:09 Test Item Value Reference Range Interpretation Comments GLU CSF (test code = 2400949261) 80 mg/dL 50-80 UNSPUN BODY FLUID COLOR (test Colorless code = 2459258022) UNSPUN BODY FLUID CLARITY (test Clear code = 5203608530) SPUN BODY FLUID COLOR (test code Colorless = 9440292498) SPUN BODY FLUID CLARITY (test Clear code = 1736822381) Sediment (test code = No sediment. 6935456967) [facility] [id number] 21:46:03 Test Item Value Reference Range Interpretation Comments T. PRO CSF (test code = 103.0 mg/dL 15.0-45.0 H 0336050543) UNSPUN BODY FLUID COLOR (test Colorless code = 9094911422) UNSPUN BODY FLUID CLARITY (test Clear code = 2812362130) SPUN BODY FLUID COLOR (test code Colorless = 9414447960) SPUN BODY FLUID CLARITY (test Clear code = 1024496928) Sediment (test code = No sediment. 0042825671) Lab Interpretation (test code = Abnormal 93486-2) [facility] [id number] 21:46:03 Test Item Value Reference Range Interpretation Comments T. PRO CSF (test code = 103.0 mg/dL 15.0-45.0 H 6197492928) UNSPUN BODY FLUID COLOR (test Colorless code = 1216130340) UNSPUN BODY FLUID CLARITY (test Clear code = 1925026996) SPUN BODY FLUID COLOR (test code Colorless = 8540691562) SPUN BODY FLUID CLARITY (test Clear code = 3805019378) Sediment (test code = No sediment. 9007359910) Lab Interpretation (test code = Abnormal 11333-9) [facility] [id number] 21:46:03 Test Item Value Reference Range Interpretation Comments T. PRO CSF (test code = 103.0 mg/dL 15.0-45.0 H 1606320426) UNSPUN BODY FLUID COLOR (test Colorless code = 1254077330) UNSPUN BODY FLUID CLARITY (test Clear code = 8450084889) SPUN BODY FLUID COLOR (test code Colorless = 6435793661) SPUN BODY FLUID CLARITY (test Clear code = 5248905212) Sediment (test code = No sediment. 3433992967) Lab Interpretation (test code = Abnormal 22976-1) [facility] METABOLIC PANEL (NA, K, CL, CO2, GLUCOSE, BUN, CREATININE, CA)2020-11-02 18:27:27 Test Item Value Reference Range Interpretation Comments NA (test code = 152 mmol/L 135-145 H 7170969069) K (test code = 3.8 mmol/L 3.5-5.0 1854520697) CL (test code = 123 mmol/L 98-108 H 6418211675) CO2 TOTAL (test code = 23 mmol/L 23-31 2784074783) AGAP (test code = 2-16 7495056266) BUN (test code = 49 mg/dL 7-23 H 9992050736) GLUCOSE (test code = 150 mg/dL 70-110 H 4974931201) CREATININE (test code = 1.37 mg/dL 0.60-1.25 H 9971560465) CALCIUM (test code = 7.9 mg/dL 8.6-10.6 L 4699189461) eGFR (test code = mL/min/1.73m2 2202630473) JUAN LUIS (test code = JUAN LUIS) [...] tests). Lab Interpretation Abnormal (test code = 20602-5) [facility] Test Item Value Reference Range Interpretation Comments MAGNESIUM (test code = 4351268190) 2.7 mg/dL 1.7-2.4 H Lab Interpretation (test code = Abnormal 74941-9) [facility] 17:42:23 Test Item Value Reference Range Interpretation Comments MAGNESIUM (test code = 0271279295) 2.6 mg/dL 1.7-2.4 H Lab Interpretation (test code = Abnormal 06045-7) [facility] GLUCOSE (AUTOMATED)2020-11-02 16:39:58 Test Item Value Reference Range Interpretation Comments POCT GLU (test code = 7653213812) 148 mg/dL 70-110 H Lab Interpretation (test code = Abnormal 39746-8) [facility] GLUCOSE (AUTOMATED)2020-11-02 12:48:24 Test Item Value Reference Range Interpretation Comments POCT GLU (test code = 8287341463) 183 mg/dL 70-110 H Lab Interpretation (test code = Abnormal 47982-8) [facility] WITH [id number] 10:59:44 Test Item Value Reference Range Interpretation [...] (test code = 60.9 fL 38.5-51.6 H 62675-1) RDW-CV (test code = 22.7 % 12.1-15.4 H 788-0) PLT (test code = See_Comment L [Automated 777-3) message] The sy stem which generated this result transmitted reference range : 150 - 328 10*3/ ?L. The reference r christine was not used to interpret this result as normal/abnormal . MPV (test code = Not Measure d 79108-1) IPF % (test code = 9.7 % 1.2-10.7 Platelet count 6155404971) measured by fluorescence method. NRBC/100 WBC (test See_Comment [Automat ed code = 2282987598) message] The system which generated this result transmitted reference range : 0.0 - 10.0 /100 WBCs. The refer ence range was not u sed to interpret th is result as normal/abnormal . NRBC x10^3 (test code See_Comment [Auto mated = 5743564868) message] The s ystem which generated this result transmitted reference range : 10*3/?L. The reference range was not used to interpret this result as normal/abnormal . GRAN MAT (NEUT) % 81.9 % (test code = 770-8) IMM GRAN % (test code 0.80 % = 0097438106) LYMPH % (test code = 6.7 % 736-9) MONO % (test code = 8.4 % 5905-5) EOS % (test code = 2.0 % 713-8) BASO % (test code = 0.2 % 706-2) GRAN MAT x10^3(ANC) 11.65 10*3/uL 1.99-6.95 H (test code = 2535280287) IMM GRAN x10^3 (test 0.11 10*3/uL 0.00-0.06 H code = 9971627582) LYMPH x10^3 (test 0.96 10*3/uL 1.09-3.23 L code = 731-0) MONO x10^3 (test code 1.20 10*3/uL 0.36-1.02 H = 742-7) EOS x10^3 (test code 0.28 10*3/uL 0.06-0.53 = 711-2) BASO x10^3 (test code 0.03 10*3/uL 0.01-0.09 = 704-7) SCHISTOCYTES (test 1+ A code = 800-3) BANDS (test code = Increased A 8413378892) TOXIC CHANGES (test Present A code = 803-7) GIANT PLATELETS (test Present See_Comment A [Auto mated code = 5908-9) message] The system which generated this result transmitted reference range : (none). The reference range was not used to interpret this result as normal/abnormal . Lab Interpretation Abnormal (test code = 29485-9) [facility] (NA, K, CL, CO2, GLUCOSE, BUN, CREATININE, CA)2020-11-02 10:52:59 Test Item Value Reference Range Interpretation Comments NA (test code = 150 mmol/L 135-145 H 7726393935) K (test code = 4.0 mmol/L 3.5-5.0 9355473225) CL (test code = 121 mmol/L 98-108 H 0556452063) CO2 TOTAL (test code = 22 mmol/L 23-31 L 2481763304) AGAP (test code = 2-16 7175297464) BUN (test code = 49 mg/dL 7-23 H 3254265030) GLUCOSE (test code = 162 mg/dL 70-110 H 9191860064) CREATININE (test code = 1.42 mg/dL 0.60-1.25 H 9117090175) CALCIUM (test code = 7.8 mg/dL 8.6-10.6 L 0558843839) eGFR (test code = mL/min/1.73m2 9642839541) JUAN LUIS (test code = JUAN LUIS) [...] tests). Lab Interpretation Abnormal (test code = 24645-0) [facility], [id number] 07:23:16 Test Item Value Reference Range Interpretation Comments VIT B12 (test code = 956 pg/mL 240-930 H 0147892704) JUAN LUIS (test code = JUAN LUIS) Biotin has been reported to cause a positive bias, interpret results relative to patient's use of biotin. Lab Interpretation (test Abnormal code = 60840-2) [facility], [id number] 07:23:16 Test Item Value Reference Range Interpretation Comments VIT B12 (test code = 956 pg/mL 240-930 H 1566577813) JUAN LUIS (test code = JUAN LUIS) Biotin has been reported to cause a positive bias, interpret results relative to patient's use of biotin. Lab Interpretation (test Abnormal code = 12303-8) [facility], [id number] 07:23:16 Test Item Value Reference Range Interpretation Comments VIT B12 (test code = 956 pg/mL 240-930 H 6898548708) JUAN LUIS (test code = JUAN LUIS) Biotin has been reported to cause a positive bias, interpret results relative to patient's use of biotin. Lab Interpretation (test Abnormal code = 98545-4) [facility] 04:03:00 Test Item Value Reference Range Interpretation Comments FOLATE SER (test code = 8988438241) >20.0 3.0-20.0 H Lab Interpretation (test code = Abnormal 99826-0) [facility] 04:03:00 Test Item Value Reference Range Interpretation Comments FOLATE SER (test code = 5125591737) >20.0 3.0-20.0 H Lab Interpretation (test code = Abnormal 40663-9) [facility] 04:03:00 Test Item Value Reference Range Interpretation Comments FOLATE SER (test code = 6004547934) >20.0 3.0-20.0 H Lab Interpretation (test code = Abnormal 32924-2) [facility]2020-11-02 03:58:01 Test Item Value Reference Range Interpretation Comments POCT GLU (test code = 4489132412) 109 mg/dL 70-110 Lab Interpretation (test code = Normal 70461-9) [facility] [id number] 03:26:53 Test Item Value Reference Range Interpretation Comments TSH (test code = See_Comment Biotin has been 2571204021) reported to cau se a negative bias, interpret resul ts relative to pat ient's use of biotin. [Automated mess age] The system [employer] generated this result transmitted ref erence range: 0.45 - 4 .70 mIU/L. The refe rence range was not u sed to interpret this result as normal/abnor mal. Lab Interpretation (test Normal code = 05192-8) [facility] [id number] 03:26:53 Test Item Value Reference Range Interpretation Comments TSH (test code = See_Comment Biotin has been 3546082050) reported to cau se a negative bias, interpret resul ts relative to pat ient's use of biotin. [Automated mess age] The system [employer] generated this result transmitted ref erence range: 0.45 - 4 .70 mIU/L. The refe rence range was not u sed to interpret this result as normal/abnor mal. Lab Interpretation (test Normal code = 64355-1) [facility] [id number] 03:26:53 Test Item Value Reference Range Interpretation Comments TSH (test code = See_Comment Biotin has been 3453758393) reported to cau se a negative bias, interpret resul ts relative to pat ient's use of biotin. [Automated mess age] The system [employer] generated this result transmitted ref erence range: 0.45 - 4 .70 mIU/L. The refe rence range was not u sed to interpret this result as normal/abnor mal. Lab Interpretation (test Normal code = 68853-7) [facility] CULTURE [id number] 01:01:36 Test Item Value Reference Range Interpretation Comments Blood Culture-Aerobic No organisms No growth Previo us (test code = 40027-5) isolated prelim inary verified result was Culture [...] Culture-Anaerobic isolated preliminar y (test code = 49478-8) verifi ed result was Culture In Progress [...] CDT Lab Interpretation Normal (test code = 21250-4) [facility] CULTURE [id number] 01:01:36 Test Item Value Reference Range Interpretation Comments Blood Culture-Aerobic No organisms No growth Previo us (test code = 79637-1) isolated prelim inary verified result was Culture [...] Culture-Anaerobic isolated preliminar y (test code = 31515-3) verifi ed result was Culture In Progress [...] CDT Lab Interpretation Normal (test code = 86126-9) [facility] [id number] 01:01:36 Test Item Value Reference Range Interpretation Comments Blood Culture-Aerobic No organisms No growth Previo us (test code = 25017-2) isolated prelim inary verified result was Culture [...] Culture-Anaerobic isolated preliminar y (test code = 52294-4) verifi ed result was Culture In Progress [...] CDT Lab Interpretation Normal (test code = 69460-5) [facility] [id number] 01:01:36 Test Item Value Reference Range Interpretation Comments Blood Culture-Aerobic No organisms No growth Previo us (test code = 00444-0) isolated prelim inary verified result was Culture [...] Culture-Anaerobic isolated preliminar y (test code = 50814-4) verifi ed result was Culture In Progress [...] CDT Lab Interpretation Normal (test code = 58227-6) [facility]2020-11-02 00:43:35 Test Item Value Reference Range Interpretation Comments POCT GLU (test code = 9471932239) 204 mg/dL 70-110 H Lab Interpretation (test code = Abnormal 26894-8) [facility] - Duration of test: 20-60 mins; Release to patient: [id number] 00:00:00Date and Time of Procedure: 11/02/2020, 8:47:43 [...] Lindsey Rose MD Date of int erpretation: 11/02/2020[facility]ro[facility] ([facility] - Duration of test: 20-60 mins; Release to patient: [id number] 00:00:00Date and Time of Procedure: 11/02/2020, 8:47:43 [...] indicated. Lindsey Rose MD Date of interpretation: 11/02/2020[facility]ogram (EEG) - Duration of test: 20-60 mins; Release to patient: [id number] 00:00:00Date and Time of Procedure: 11/02/2020, 8:47:43 [...] Lindsey Rose MD Date of int erpretation: [facility] 2020-11-01 21:47:18 Test Item Value Reference Range Interpretation Comments POCT GLU (test code = 3484031401) 155 mg/dL 70-110 H Lab Interpretation (test code = Abnormal 73804-6) [facility] GLUCOSE (AUTOMATED)2020-11-01 21:00:48 Test Item Value Reference Range Interpretation Comments POCT GLU (test code = 7438108235) 149 mg/dL 70-110 H Lab Interpretation (test code = Abnormal 15449-0) [facility]PROCALCITONIN2021-04-20 20:04:50 Test Item Value Reference Range Interpretation Comments Procalcitonin (test 0.24 ng/mL <0.07 H code = 5288106458) JUAN LUIS (test code = JUAN LUIS) [...] lung abscess/empyema. For further information please refer to:[email or web address] Lab Interpretation Abnormal (test code = 84155-2) [facility]AL[facility]IN2021-04-20 20:04:50 Test Item Value Reference Range Interpretation Comments Procalcitonin (test 0.24 ng/mL <0.07 H code = 4843214251) JUAN LUIS (test code = JUAN LUIS) [...] lung abscess/empyema. For further information please refer to:[email or web address] Lab Interpretation Abnormal (test code = 60655-4) [facility]AL[facility]IN2021-04-20 20:04:50 Test Item Value Reference Range Interpretation Comments Procalcitonin (test 0.24 ng/mL <0.07 H code = 4281551878) JUAN LUIS (test code = JUAN LUIS) [...] lung abscess/empyema. For further information please refer to:[email or web address] Lab Interpretation Abnormal (test code = 33964-7) [facility] METABOLIC PANEL (NA, K, CL, CO2, GLUCOSE, BUN, CREATININE, CA)2020-11-01 18:21:16 Test Item Value Reference Range Interpretation Comments NA (test code = 149 mmol/L 135-145 H 4576988787) K (test code = 3.9 mmol/L 3.5-5.0 3269164446) CL (test code = 121 mmol/L 98-108 H 9453189539) CO2 TOTAL (test code = 22 mmol/L 23-31 L 4557164162) AGAP (test code = 2-16 4593273406) BUN (test code = 47 mg/dL 7-23 H 5885781503) GLUCOSE (test code = 218 mg/dL 70-110 H 9979073312) CREATININE (test code = 1.42 mg/dL 0.60-1.25 H 9349103264) CALCIUM (test code = 7.6 mg/dL 8.6-10.6 L 9267272734) eGFR (test code = mL/min/1.73m2 8466178337) JUAN LUIS (test code = JUAN LUIS) [...] tests). Lab Interpretation Abnormal (test code = 65862-9) [facility] GLUCOSE (AUTOMATED)2020-11-01 17:04:41 Test Item Value Reference Range Interpretation Comments POCT GLU (test code = 0848114544) 246 mg/dL 70-110 H Lab Interpretation (test code = Abnormal 91782-7) [facility] GLUCOSE (AUTOMATED)2020-11-01 12:53:56 Test Item Value Reference Range Interpretation Comments POCT GLU (test code = 7145144694) 214 mg/dL 70-110 H Lab Interpretation (test code = Abnormal 39232-0) [facility] WITH [id number] 11:03:22 Test Item Value Reference Range Interpretation Comments WBC (test code = See_Comment H [Automated 9490-2) message] The sy stem which [...] (test code = 60.5 fL 38.5-51.6 H 07604-0) RDW-CV (test code = 22.5 % 12.1-15.4 H 788-0) PLT (test code = See_Comment L [Automated 777-3) message] The sy stem which generated this result transmitted reference range : 150 - 328 10*3/ ?L. The reference r christine was not used to interpret this result as normal/abnormal . MPV (test code = Not Measure d 76806-8) IPF % (test code = 6.1 % 1.2-10.7 Platelet count 8327655427) measured by fluorescence method. NRBC/100 WBC (test See_Comment [Automat ed code = 2863075864) message] The system which generated this result transmitted reference range : 0.0 - 10.0 /100 WBCs. The refer ence range was not u sed to interpret th is result as normal/abnormal . NRBC x10^3 (test code See_Comment [Auto mated = 5208194204) message] The s ystem which generated this result transmitted reference range : 10*3/?L. The reference range was not used to interpret this result as normal/abnormal . GRAN MAT (NEUT) % 83.1 % (test code = 770-8) IMM GRAN % (test code 1.00 % = 7945370276) LYMPH % (test code = 7.0 % 736-9) MONO % (test code = 6.7 % 5905-5) EOS % (test code = 2.0 % 713-8) BASO % (test code = 0.2 % 706-2) GRAN MAT x10^3(ANC) 12.96 10*3/uL 1.99-6.95 H (test code = 8317021384) IMM GRAN x10^3 (test 0.15 10*3/uL 0.00-0.06 H code = 2828953547) LYMPH x10^3 (test 1.09 10*3/uL 1.09-3.23 code = 731-0) MONO x10^3 (test code 1.05 10*3/uL 0.36-1.02 H = 742-7) EOS x10^3 (test code 0.31 10*3/uL 0.06-0.53 = 711-2) BASO x10^3 (test code 0.03 10*3/uL 0.01-0.09 = 704-7) SCHISTOCYTES (test 1+ A code = 800-3) TOXIC CHANGES (test Present A code = 803-7) Lab Interpretation Abnormal (test code = 39444-6) [facility] METABOLIC PANEL (NA, K, CL, CO2, GLUCOSE, BUN, CREATININE, CA)2020-11-01 10:58:55 Test Item Value Reference Range Interpretation Comments NA (test code = 151 mmol/L 135-145 H 9188707585) K (test code = 4.0 mmol/L 3.5-5.0 9266123966) CL (test code = 124 mmol/L 98-108 H 6588401836) CO2 TOTAL (test code = 22 mmol/L 23-31 L 3209186640) AGAP (test code = 2-16 3315039689) BUN (test code = 48 mg/dL 7-23 H 4445125672) GLUCOSE (test code = 201 mg/dL 70-110 H 0246859240) CREATININE (test code = 1.46 mg/dL 0.60-1.25 H 7404750485) CALCIUM (test code = 7.7 mg/dL 8.6-10.6 L 8620745077) eGFR (test code = mL/min/1.73m2 3864920780) JUAN LUIS (test code = JUAN LUIS) [...] tests). Lab Interpretation Abnormal (test code = 10761-9) [facility] GLUCOSE (AUTOMATED)2020-11-01 10:42:03 Test Item Value Reference Range Interpretation Comments POCT GLU (test code = 0386836435) 208 mg/dL 70-110 H Lab Interpretation (test code = Abnormal 47416-4) [facility] GLUCOSE (AUTOMATED)2020-11-01 08:18:28 Test Item Value Reference Range Interpretation Comments POCT GLU (test code = 2220572220) 218 mg/dL 70-110 H Lab Interpretation (test code = Abnormal 67270-2) [facility] METABOLIC PANEL (NA, K, CL, CO2, GLUCOSE, BUN, CREATININE, CA)2020-11-01 06:04:39 Test Item Value Reference Range Interpretation Comments NA (test code = 152 mmol/L 135-145 H 5868890523) K (test code = 4.0 mmol/L 3.5-5.0 1086366286) CL (test code = 123 mmol/L 98-108 H 6990896495) CO2 TOTAL (test code = 23 mmol/L 23-31 4890357672) AGAP (test code = 2-16 6795904262) BUN (test code = 49 mg/dL 7-23 H 6584052664) GLUCOSE (test code = 144 mg/dL 70-110 H 0613153297) CREATININE (test code = 1.47 mg/dL 0.60-1.25 H 4404465305) CALCIUM (test code = 7.9 mg/dL 8.6-10.6 L 4770832375) eGFR (test code = mL/min/1.73m2 3014857359) JUAN LUIS (test code = JUAN LUIS) [...] tests). Lab Interpretation Abnormal (test code = 43207-5) [facility] GLUCOSE (AUTOMATED)2020-11-01 05:17:31 Test Item Value Reference Range Interpretation Comments POCT GLU (test code = 4580662349) 137 mg/dL 70-110 H Lab Interpretation (test code = Abnormal 88975-2) [facility]2020-11-01 02:27:59 Test Item Value Reference Range Interpretation Comments POCT GLU (test code = 8878392282) 129 mg/dL 70-110 H Lab Interpretation (test code = Abnormal 30131-4) [facility] STROKE BRAIN WO [id number] 01:52:27 Within confines of motion degradation, no [...] confines of motion degradation, no acute intracranial abnormality.[facility] STROKE BRAIN WO [id number] 01:52:27 Within confines of motion degradation, no [...] confines of motion degradation, no acute intracranial abnormality.[facility] STROKE BRAIN WO [id number] 01:52:27 Within confines of motion degradation, no [...] confines of motion degradation, no acute intracranial abnormality.[facility] GLUCOSE (AUTOMATED)2020-10-31 23:28:12 Test Item Value Reference Range Interpretation Comments POCT GLU (test code = 9580966712) 194 mg/dL 70-110 H Lab Interpretation (test code = Abnormal 79093-0) [facility] GLUCOSE (AUTOMATED)2020-10-31 16:44:35 Test Item Value Reference Range Interpretation Comments POCT GLU (test code = 5567312125) 230 mg/dL 70-110 H Lab Interpretation (test code = Abnormal 26197-0) [facility] [id number] 13:11:08EXAM: XR CHEST 1 VW HISTORY: SOB COMPARISON: None. FINDINGS: The heart remains slightly enlarged tothe left. Hilar vascular congestionand interstitial and alveolar edema have increased considerably since themost recent previous image was obtained. The upper lungs are slightlycongested but otherwise clear. ? [facility], Radiant Results Inft User - 10/31/2020 8:12 AM CDTEXAM: XR CHEST 1 VWHISTORY: SOB COMPARISON: None.FINDINGS:The heart remains slightly enlarged to the left. Hilar vascular congestionand interstitial and alveolar edema have increased considerably since themost recent previous image was obtained. The upper lungs are slightlycongested but otherwise clear.[facility] 1 [id number] 13:11:08EXAM: XR CHEST 1 VW HISTORY: SOB [...] The upper lungs are slightlycongested but otherwise clear.[facility])2020-10-31 12:52:48 Test Item Value Reference Range Interpretation Comments POCT GLU (test code = 3254258322) 285 mg/dL 70-110 H Lab Interpretation (test code = Abnormal 42996-9) [facility] 30 minutes after transfusion of each [id number] 11:57:20 Test Item Value Reference Range Interpretation Comments WBC (test code = See_Comment H [Automated message] 6690-2) The system DocVue generated this result transmitted ref erence range: 4.20 - 1 0.70 10*3/?L. The reference range was not used to int erpret this result as normal/abnormal . RBC (test code = 789-8) See_Comment L [Au tomated message] The system DocVue generated this result transmitted ref erence range: [...] See_Comment L [Au tomated message] The system Doc[employer]ue generated this result transmitted ref erence range: 150 - 32 8 10*3/?L. The reference range was not used to int erpret this result as normal/abnormal . MPV (test code = Not Measure d 42732-3) RDW-CV (test code = 22.4 % 12.1-15.4 H 788-0) RDW-SD (test code = 61.0 fL 38.5-51.6 H 75979-6) NRBC x10^3 (test code = See_Comment [Au tomated message] 7454771873) The system [facility] Pow[employer] generated this result transmitted ref erence range: 10*3/?L. The reference range was not used to int erpret this result as normal/abnormal . NRBC/100 WBC (test code See_Comment [Au tomated message] = 4973011438) The system [facility] generated this result transmitted ref erence range: 0.0 - 10 .0 /100 WBCs. The reference range was not used to int erpret this result as normal/abnormal . IPF % (test code = 6.6 % 1.2-10.7 Platelet count [id number]) measured by fluorescence me thod. Lab Interpretation Abnormal (test code = 63636-0) [facility] Packed RBC (in units), 1 Units 2020-10-31 06:44:13 Test Item Value Reference Range Interpretation Comments Cross Match Result Compatible (test code = 4409) ISBT Blood Type Code (test code = 496643) Unit Blood Type (test A Pos code = 4410) Unit Number (test [id number] code = 4411) Blood Expiration Date & Time (test code = 243259) Status Information Issued (test code = 4412) Product Red Blood Cells Identification (test code = 4413) Product Code (test Z7070P27 Performed at [facility] code = 4414) Laboratory Services - [facility] Blood [address] [place] [address]Vngt Free: [phone] A No. [id number] [facility] Packed RBC (in units), 1 Units 2020-10-31 06:44:13 Test Item Value Reference Range Interpretation Comments Cross Match Result Compatible (test code = 4409) ISBT Blood Type Code (test code = 461875) Unit Blood Type (test A Pos code = 4410) Unit Number (test [id number] code = 4411) Blood Expiration Date & Time (test code = 189073) Status Information Issued (test code = 4412) Product Red Blood Cells Identification (test code = 4413) Product Code (test W2315H92 Performed at [facility] code = 4414) Laboratory [facility] Blood [address] [address]Tvad Free: [phone] A No. [id number] [facility] P[facility] RBC (in units), 1 Units 2020-10-31 06:44:13 Test Item Value Reference Range Interpretation Comments Cross Match Result Compatible (test code = 4409) ISBT Blood Type Code (test code = 384983) Unit Blood Type (test A Pos code = 4410) Unit Number (test [id number] code = 4411) Blood Expiration Date & Time (test code = 476865) Status Information Issued (test code = 4412) Product Red Blood Cells Identification (test code = 4413) Product Code (test G5738C06 Performed at [facility] code = 4414) Laboratory [facility] Blood [address] [address]Chnu Free: [phone] A No. [id number] [facility] and Screen - ONCE [id number] 06:28:19 Test Item Value Reference Range Interpretation Comments ABO & RH (test code A POSITIVE Performe d at [facility] = 20) Laboratory [facility] Blood Bank3 [address] [facility] [address]Rjbo Free: [phone] A No. [id number] IAT (test code = Negative Performed a t [facility] 1185) Laboratory [facility] Blood [facility]3 [address] [facility] s [address]Dqsp Free: [phone] A No. [id number] [facility] and Screen - ONCE [id number] 06:28:19 Test Item Value Reference Range Interpretation Comments ABO & RH (test code A POSITIVE Performe d at [facility] = 20) Laboratory [facility] Blood [facility]3 [address] [place] [address]Ivfw Free: [phone] A No. [id number] IAT (test code = Negative Performed a t [facility] 1185) Laboratory [facility] Blood [address] [address]Ldgi Free: [phone] A No. [id number] [facility] - ONCE [id number] 06:28:19 Test Item Value Reference Range Interpretation Comments ABO & RH (test code A POSITIVE Performe d at [facility] = 20) Laboratory [facility] Blood [address] [address]Lctu Free: [phone] A No. [id number] IAT (test code = Negative Performed a t [facility] 1185) Laboratory [facility] Blood [address] [address]Ryzb Free: [phone] A No. [id number] [facility])2020-10-31 05:36:57 Test Item Value Reference Range Interpretation Comments POCT GLU (test code = 1693950347) 242 mg/dL 70-110 H Lab Interpretation (test code = Abnormal 18955-8) [facility]2021-[facility]-19 05:07:27 Test Item Value Reference Range Interpretation Comments MAGNESIUM (test code = 1048356203) 2.5 mg/dL 1.7-2.4 H Lab Interpretation (test code = Abnormal 36653-9) [facility] WITH [id number] 04:57:09 Test Item Value Reference Range Interpretation [...] (test code = 60.2 fL 38.5-51.6 H 33284-6) RDW-CV (test code = 22.7 % 12.1-15.4 H 788-0) PLT (test code = See_Comment L [Automated 777-3) message] The sy stem which generated this result transmitted reference range : 150 - 328 10*3/ ?L. The reference r christine was not used to interpret this result as normal/abnormal . MPV (test code = Not Measure d 35547-6) IPF % (test code = 3.4 % 1.2-10.7 Platelet count 0744413057) measured by fluorescence method. NRBC/100 WBC (test See_Comment [Automat ed code = 2522776888) message] The system which generated this result transmitted reference range : 0.0 - 10.0 /100 WBCs. The refer ence range was not u sed to interpret th is result as normal/abnormal . NRBC x10^3 (test code <0.01 See_Comment [Auto mated = 2296090736) message] The s ystem which generated this result transmitted reference range : 10*3/?L. The reference range was not used to interpret this result as normal/abnormal . GRAN MAT (NEUT) % 82.8 % (test code = 770-8) IMM GRAN % (test code 1.10 % = 1741861685) LYMPH % (test code = 7.8 % 736-9) MONO % (test code = 7.0 % 5905-5) EOS % (test code = 1.2 % 713-8) BASO % (test code = 0.1 % 706-2) GRAN MAT x10^3(ANC) 11.75 10*3/uL 1.99-6.95 H (test code = 6748311266) IMM GRAN x10^3 (test 0.16 10*3/uL 0.00-0.06 H code = 0743251537) LYMPH x10^3 (test 1.10 10*3/uL 1.09-3.23 code = 731-0) MONO x10^3 (test code 0.99 10*3/uL 0.36-1.02 = 742-7) EOS x10^3 (test code 0.17 10*3/uL 0.06-0.53 = 711-2) BASO x10^3 (test code <0.03 0.01-0.09 = 704-7) SCHISTOCYTES (test 1+ A code = 800-3) Lab Interpretation Abnormal (test code = 00784-1) [facility] (for use with Heparin Drip)2020-10-31 04:49:42 Test Item Value Reference Range Interpretation Comments APTT Patient (test code See_Comment H [Au tomated message] = 3173-2) The system DocVue generated this result transmitted ref erence range: 26 - 36 Seconds. The reference range was not used to int erpret this result as normal/abnormal . Lab Interpretation (test Abnormal code = 10112-6) [facility] (for use with Heparin Drip)2020-10-31 04:49:42 Test Item Value Reference Range Interpretation Comments APTT Patient (test code See_Comment H [Au tomated message] = 3173-2) The system DocVue generated this result transmitted ref erence range: 26 - 36 Seconds. The reference range was not used to int erpret this result as normal/abnormal . Lab Interpretation (test Abnormal code = 10125-3) [facility] (for use with Heparin Drip)2020-10-31 04:49:42 Test Item Value Reference Range Interpretation Comments APTT Patient (test code See_Comment H [Au tomated message] = 3173-2) The system DocVue generated this result transmitted ref erence range: 26 - 36 Seconds. The reference range was not used to int erpret this result as normal/abnormal . Lab Interpretation (test Abnormal code = 45971-9) [facility] (NA, K, CL, CO2, GLUCOSE, BUN, CREATININE, CA)2020-10-31 04:34:49 Test Item Value Reference Range Interpretation Comments NA (test code = 151 mmol/L 135-145 H 6345055610) K (test code = 3.9 mmol/L 3.5-5.0 7771070237) CL (test code = 124 mmol/L 98-108 H 4615214650) CO2 TOTAL (test code = 22 mmol/L 23-31 L 2481648685) AGAP (test code = 2-16 1819863906) BUN (test code = 52 mg/dL 7-23 H 4785444813) GLUCOSE (test code = 212 mg/dL 70-110 H 2417139196) CREATININE (test code = 1.44 mg/dL 0.60-1.25 H 6964172332) CALCIUM (test code = 8.0 mg/dL 8.6-10.6 L 1789142050) eGFR (test code = mL/min/1.73m2 4260123548) JUAN LUIS (test code = JUAN LUIS) [...] tests). Lab Interpretation Abnormal (test code = 26037-6) [facility] GLUCOSE (AUTOMATED)2020-10-31 01:46:55 Test Item Value Reference Range Interpretation Comments POCT GLU (test code = 9703347658) 259 mg/dL 70-110 H Lab Interpretation (test code = Abnormal 74525-7) [facility] GLUCOSE (AUTOMATED)2020-10-30 22:14:20 Test Item Value Reference Range Interpretation Comments POCT GLU (test code = 2635500104) 317 mg/dL 70-110 H Lab Interpretation (test code = Abnormal 10690-8) [facility]21-[facility]-18 20:38:02 Test Item Value Reference Range Interpretation Comments MAGNESIUM (test code = 3460015420) 2.4 mg/dL 1.7-2.4 Lab Interpretation (test code = Normal 64821-7) [facility] GLUCOSE (AUTOMATED)2020-10-30 19:46:18 Test Item Value Reference Range Interpretation Comments POCT GLU (test code = 1622061360) 374 mg/dL 70-110 H Lab Interpretation (test code = Abnormal 38102-7) [facility]for use with Heparin Drip)2020-10-30 17:27:09 Test Item Value Reference Range Interpretation Comments APTT Patient (test code See_Comment H [Au tomated message] = 3173-2) The system DocVue generated this result transmitted ref erence range: 26 - 36 Seconds. The reference range was not used to int erpret this result as normal/abnormal . Lab Interpretation (test Abnormal code = 67489-3) [facility] GLUCOSE (AUTOMATED)2020-10-30 17:07:11 Test Item Value Reference Range Interpretation Comments POCT GLU (test code = 5150865035) 368 mg/dL 70-110 H Lab Interpretation (test code = Abnormal 46507-5) [facility] (NA, K, CL, CO2, GLUCOSE, BUN, CREATININE, CA)2020-10-30 14:34:56 Test Item Value Reference Range Interpretation Comments NA (test code = 148 mmol/L 135-145 H 3162766840) K (test code = 4.1 mmol/L 3.5-5.0 6902649153) CL (test code = 122 mmol/L 98-108 H 5795150232) CO2 TOTAL (test code = 20 mmol/L 23-31 L 4604863116) AGAP (test code = 2-16 5186841292) BUN (test code = 51 mg/dL 7-23 H 0335197488) GLUCOSE (test code = 343 mg/dL 70-110 H 4225230551) CREATININE (test code = 1.43 mg/dL 0.60-1.25 H 3820797903) CALCIUM (test code = 8.1 mg/dL 8.6-10.6 L 9489638583) eGFR (test code = mL/min/1.73m2 9944234370) JUAN LUIS (test code = JUAN LUIS) [...] tests). Lab Interpretation Abnormal (test code = 63848-2) [facility] WITHOUT [id number] 14:10:28 Test Item Value Reference Range Interpretation Comments WBC (test code = See_Comment H [Automated message] 6690-2) The system DocVue generated this result transmitted ref erence range: 4.20 - 1 0.70 10*3/?L. The reference range was not used to int erpret this result as normal/abnormal . RBC (test code = 789-8) See_Comment L [Au tomated message] The system DocVue generated this result transmitted ref erence range: [...] See_Comment L [Au tomated message] The system DocVue generated this result transmitted ref erence range: 150 - 32 8 10*3/?L. The reference range was not used to int erpret this result as normal/abnormal . MPV (test code = Not Measure d 55244-9) RDW-CV (test code = 22.8 % 12.1-15.4 H 788-0) RDW-SD (test code = 60.3 fL 38.5-51.6 H 07126-5) NRBC x10^3 (test code = <0.01 See_Comment [Au tomated message] 7900948330) The system DocVue generated this result transmitted ref erence range: 10*3/?L. The reference range was not used to int erpret this result as normal/abnormal . NRBC/100 WBC (test code See_Comment [Au tomated message] = 9849182461) The system [employer] generated this result transmitted ref erence range: 0.0 - 10 .0 /100 WBCs. The reference range was not used to int erpret this result as normal/abnormal . IPF % (test code = 3.9 % 1.2-10.7 Platelet count 5382382247) measured by fluorescence me thod. Lab Interpretation Abnormal (test code = 01750-9) [facility] GLUCOSE (AUTOMATED)2020-10-30 12:43:30 Test Item Value Reference Range Interpretation Comments POCT GLU (test code = 0958753524) 350 mg/dL 70-110 H Lab Interpretation (test code = Abnormal 61828-3) [facility] GLUCOSE (AUTOMATED)2020-10-30 09:35:03 Test Item Value Reference Range Interpretation Comments POCT GLU (test code = 9401063605) 302 mg/dL 70-110 H Lab Interpretation (test code = Abnormal 28205-5) [facility] GLUCOSE (AUTOMATED)2020-10-30 06:24:42 Test Item Value Reference Range Interpretation Comments POCT GLU (test code = 9540388731) 280 mg/dL 70-110 H Lab Interpretation (test code = Abnormal 14600-6) [facility] WITH [id number] 06:22:16 Test Item Value Reference Range Interpretation [...] (test code = 60.6 fL 38.5-51.6 H 95030-5) RDW-CV (test code = 22.7 % 12.1-15.4 H 788-0) PLT (test code = See_Comment L [Automated 777-3) message] The sy stem which generated this result transmitted reference range : 150 - 328 10*3/ ?L. The reference r christine was not used to interpret this result as normal/abnormal . MPV (test code = 12.3 fL 9.8-13.0 35899-0) IPF % (test code = 2.3 % 1.2-10.7 Platelet count 3168998735) measured by fluorescence method. NRBC/100 WBC (test See_Comment [Automat ed code = 4217092160) message] The system which generated this result transmitted reference range : 0.0 - 10.0 /100 WBCs. The refer ence range was not u sed to interpret th is result as normal/abnormal . NRBC x10^3 (test code <0.01 See_Comment [Auto mated = 7536059374) message] The s ystem which generated this result transmitted reference range : 10*3/?L. The reference range was not used to interpret this result as normal/abnormal . GRAN MAT (NEUT) % 83.1 % (test code = 770-8) IMM GRAN % (test code 1.70 % = 9673006866) LYMPH % (test code = 7.7 % 736-9) MONO % (test code = 6.6 % 5905-5) EOS % (test code = 0.6 % 713-8) BASO % (test code = 0.3 % 706-2) GRAN MAT x10^3(ANC) 12.88 10*3/uL 1.99-6.95 H (test code = 1537581683) IMM GRAN x10^3 (test 0.26 10*3/uL 0.00-0.06 H code = 4538486474) LYMPH x10^3 (test 1.19 10*3/uL 1.09-3.23 code [...] 803-7) Lab Interpretation Abnormal (test code = 89981-5) [facility]arin Drip[facility]2020-10-30 05:58:19 Test Item Value Reference Range Interpretation Comments APTT Patient (test code See_Comment H [Au tomated message] = 3173-2) The system DocVue generated this result transmitted ref erence range: 26 - 36 Seconds. The reference range was not used to int erpret this result as normal/abnormal . Lab Interpretation (test Abnormal code = 07126-2) [facility] METABOLIC PANEL (NA, K, CL, CO2, GLUCOSE, BUN, CREATININE, CA)2020-10-30 05:54:18 Test Item Value Reference Range Interpretation Comments NA (test code = 150 mmol/L 135-145 H 5957104960) K (test code = 3.8 mmol/L 3.5-5.0 1966900738) CL (test code = 122 mmol/L 98-108 H 5913070332) CO2 TOTAL (test code = 20 mmol/L 23-31 L 0442337397) AGAP (test code = 2-16 6844767842) BUN (test code = 49 mg/dL 7-23 H 3071582347) GLUCOSE (test code = 261 mg/dL 70-110 H 3212367365) CREATININE (test code = 1.40 mg/dL 0.60-1.25 H 7101838935) CALCIUM (test code = 8.2 mg/dL 8.6-10.6 L 4313721583) eGFR (test code = mL/min/1.73m2 1637770883) JUAN LUIS (test code = JUAN LUIS) [...] tests). Lab Interpretation Abnormal (test code = 20914-3) [facility] Test Item Value Reference Range Interpretation Comments MAGNESIUM (test code = 3962743161) 2.5 mg/dL 1.7-2.4 H Lab Interpretation (test code = Abnormal 21187-3) [facility] GLUCOSE (AUTOMATED)2020-10-30 03:26:07 Test Item Value Reference Range Interpretation Comments POCT GLU (test code = 7458266060) 246 mg/dL 70-110 H Lab Interpretation (test code = Abnormal 96130-0) [facility] GLUCOSE (AUTOMATED)2020-10-30 00:46:09 Test Item Value Reference Range Interpretation Comments POCT GLU (test code = 9903870087) 238 mg/dL 70-110 H Lab Interpretation (test code = Abnormal 39731-4) [facility] use with Heparin Drip)2020-10-29 23:13:49 Test Item Value Reference Range Interpretation Comments APTT Patient (test code See_Comment H [Au tomated message] = 3173-2) The system DocVue generated this result transmitted ref erence range: 26 - 36 Seconds. The reference range was not used to int erpret this result as normal/abnormal . Lab Interpretation (test Abnormal code = 47858-1) [facility]2020-10-29 22:25:56 Test Item Value Reference Range Interpretation Comments POCT GLU (test code = 1516767163) 243 mg/dL 70-110 H Lab Interpretation (test code = Abnormal 12221-3) [facility] 20:59:19 Test Item Value Reference Range Interpretation Comments MAGNESIUM (test code = 7112689647) 2.4 mg/dL 1.7-2.4 Lab Interpretation (test code = Normal 55411-9) [facility] (NA, K, CL, CO2, GLUCOSE, BUN, CREATININE, CA)2020-10-29 20:41:28 Test Item Value Reference Range Interpretation Comments NA (test code = 150 mmol/L 135-145 H 5926513418) K (test code = 4.0 mmol/L 3.5-5.0 7732491398) CL (test code = 123 mmol/L 98-108 H 7913453466) CO2 TOTAL (test code = 19 mmol/L 23-31 L 4447174312) AGAP (test code = 2-16 8346316553) BUN (test code = 49 mg/dL 7-23 H 4859695444) GLUCOSE (test code = 197 mg/dL 70-110 H 1121722057) CREATININE (test code = 1.35 mg/dL 0.60-1.25 H 7996134171) CALCIUM (test code = 8.6 mg/dL 8.6-10.6 2629830765) eGFR (test code = mL/min/1.73m2 6122285906) JUAN LUIS (test code = JUAN LUIS) [...] tests). Lab Interpretation Abnormal (test code = 81774-5) [facility] GLUCOSE (AUTOMATED)2020-10-29 19:13:21 Test Item Value Reference Range Interpretation Comments POCT GLU (test code = 0309153145) 196 mg/dL 70-110 H Lab Interpretation (test code = Abnormal 16775-1) [facility] GLUCOSE (AUTOMATED)2020-10-29 16:28:35 Test Item Value Reference Range Interpretation Comments POCT GLU (test code = 1411648909) 192 mg/dL 70-110 H Lab Interpretation (test code = Abnormal 87365-7) [facility] by Britney [id number] 16:25:18 Test Item Value Reference Range Interpretation Comments MSSA Screen by Britney MTZ (test code Negative Negative = 42760-9) MRSA/MSSA Positive? (test code = No No 3940750590) Lab Interpretation (test code = Normal 38612-6) [facility] by PCR, [id number] 16:25:18 Test Item Value Reference Range Interpretation Comments MSSA Screen by PCR, Nares (test code Negative Negative = 41130-7) MRSA/MSSA Positive? (test code = No No 5872218796) Lab Interpretation (test code = Normal 27860-9) [facility]A Screen by PCR, [id number] 16:25:18 Test Item Value Reference Range Interpretation Comments MSSA Screen by PCR, Nares (test code Negative Negative = 56390-3) MRSA/MSSA Positive? (test code = No No 4500894140) Lab Interpretation (test code = Normal 47967-3) [facility] [id number] 16:18:19 Test Item Value Reference Range Interpretation Comments TROPONIN I (test 0.397 ng/mL See_Comment H [Automated code = 8083869686) message] The system which generated this result [...] ? Lab Interpretation Abnormal (test code = 62948-2) [facility] [id number] 16:18:19 Test Item Value Reference Range Interpretation Comments TROPONIN I (test 0.397 ng/mL See_Comment H [Automated code = 6869487228) message] The system which generated this result [...] ? Lab Interpretation Abnormal (test code = 34597-7) [facility] [id number] 16:18:19 Test Item Value Reference Range Interpretation Comments TROPONIN I (test 0.397 ng/mL See_Comment H [Automated code = 5662346140) message] The system which generated this result [...] ? Lab Interpretation Abnormal (test code = 91516-4) [facility] (NA, K, CL, CO2, GLUCOSE, BUN, CREATININE, CA)2020-10-29 16:17:03 Test Item Value Reference Range Interpretation Comments NA (test code = 152 mmol/L 135-145 H 8391793589) K (test code = 4.2 mmol/L 3.5-5.0 8980427915) CL (test code = 124 mmol/L 98-108 H 7543528794) CO2 TOTAL (test code = 21 mmol/L 23-31 L 8523349810) AGAP (test code = 2-16 4532013551) BUN (test code = 49 mg/dL 7-23 H 3079653061) GLUCOSE (test code = 173 mg/dL 70-110 H 0728651840) CREATININE (test code = 1.34 mg/dL 0.60-1.25 H 5513597107) CALCIUM (test code = 8.8 mg/dL 8.6-10.6 1142906189) eGFR (test code = mL/min/1.73m2 7126408714) JUAN LUIS (test code = JUAN LUIS) [...] tests). Lab Interpretation Abnormal (test code = 36085-8) [facility] 15:37:55 Test Item Value Reference Range Interpretation Comments APTT Patient (test code See_Comment L [Au tomated message] = 3173-2) The system [employer] generated this result transmitted ref erence range: 26 - 36 Seconds. The reference range was not used to int erpret this result as normal/abnormal . Lab Interpretation (test Abnormal code = 50298-0) [facility]UR[facility] [id number] 14:00:01 Test Item Value Reference Range Interpretation Comments URINE CULTURE (test No aerobic growth (< code = 630-4) 1000 CFU/mL) [facility]2020-10-29 12:55:31 Test Item Value Reference Range Interpretation Comments POCT GLU (test code = 4314916830) 185 mg/dL 70-110 H Lab Interpretation (test code = Abnormal 11737-1) [facility]XR BONE [id number] 11:47:44 Metallic linear foreign body over the [...] level of the lateral right radiocarpal joint. Mamb, Radiant Results Inft User - 10/29/2020 6:48 [...] left ring finger metacarpalconsidered safe for MR imaging.[facility]XR BONE [id number] 11:47:44 Metallic linear foreign body over the [...] level of the lateral right radiocarpal joint. Mamb, Radiant Results Inft User - 10/29/2020 6:48 [...] left ring finger metacarpalconsidered safe for MR imaging.[facility]XR BONE [id number] 11:47:44 Metallic linear foreign body over the [...] left ring finger metacarpalconsidered safe for MR imaging.[facility] HospitalBRADY [id number] 08:59:20 Test Item Value Reference Range Interpretation Comments TROPONIN I (test 0.426 ng/mL See_Comment H [Automated code = 5386325412) message] The system which generated this result [...] ? Lab Interpretation Abnormal (test code = 57923-2) [facility] WITH [id number] 08:54:03 Test Item Value Reference Range Interpretation [...] (test code = 59.0 fL 38.5-51.6 H 56968-6) RDW-CV (test code = 22.5 % 12.1-15.4 H 788-0) PLT (test code = See_Comment L [Automated 777-3) message] The sy stem which generated this result transmitted reference range : 150 - 328 10*3/ ?L. The reference r christine was not used to interpret this result as normal/abnormal . MPV (test code = 11.2 fL 9.8-13.0 01604-2) IPF % (test code = 2.4 % 1.2-10.7 Platelet count 0980499200) measured by fluorescence method. NRBC/100 WBC (test See_Comment [Automat ed code = 5929729030) message] The system which generated this result transmitted reference range : 0.0 - 10.0 /100 WBCs. The refer ence range was not u sed to interpret th is result as normal/abnormal . NRBC x10^3 (test code <0.01 See_Comment [Auto mated = 3974829297) message] The s ystem which generated this result transmitted reference range : 10*3/?L. The reference range was not used to interpret this result as normal/abnormal . GRAN MAT (NEUT) % 76.4 % (test code = 770-8) IMM GRAN % (test code 3.00 % = 2615656753) LYMPH % (test code = 10.3 % 736-9) MONO % (test code = 9.1 % 5905-5) EOS % (test code = 0.8 % 713-8) BASO % (test code = 0.4 % 706-2) GRAN MAT x10^3(ANC) 9.02 10*3/uL 1.99-6.95 H (test code = 4767573019) IMM GRAN x10^3 (test 0.36 10*3/uL 0.00-0.06 H code = 1988625338) LYMPH x10^3 (test code 1.22 10*3/uL 1.09-3.23 = 731-0) MONO x10^3 (test code 1.08 10*3/uL 0.36-1.02 H = 742-7) EOS x10^3 (test code = 0.10 10*3/uL 0.06-0.53 711-2) BASO x10^3 (test code 0.05 10*3/uL 0.01-0.09 = 704-7) SCHISTOCYTES (test 1+ A code = 800-3) Lab Interpretation Abnormal (test code = 13207-5) [facility] METABOLIC PANEL (NA, K, CL, CO2, GLUCOSE, BUN, CREATININE, CA)2020-10-29 08:46:24 Test Item Value Reference Range Interpretation Comments NA (test code = 155 mmol/L 135-145 H 0914280347) K (test code = 4.4 mmol/L 3.5-5.0 6526852384) CL (test code = 126 mmol/L 98-108 H 9424719162) CO2 TOTAL (test code = 22 mmol/L 23-31 L 6423265710) AGAP (test code = 2-16 0528023270) BUN (test code = 50 mg/dL 7-23 H 1256696633) GLUCOSE (test code = 177 mg/dL 70-110 H 0218041623) CREATININE (test code = 1.29 mg/dL 0.60-1.25 H 3863410259) CALCIUM (test code = 8.6 mg/dL 8.6-10.6 6653170715) eGFR (test code = mL/min/1.73m2 7908358550) JUAN LUIS (test code = JUAN LUIS) [...] tests). Lab Interpretation Abnormal (test code = 11111-0) [facility] 07:10:56 Test Item Value Reference Range Interpretation Comments POCT GLU (test code = 3569500732) 175 mg/dL 70-110 H Lab Interpretation (test code = Abnormal 54201-8) [facility] [id number] 04:16:10 Test Item Value Reference Range Interpretation Comments TROPONIN I (test 0.454 ng/mL See_Comment H [Automated code = 4375774815) message] The system which generated this result [...] ? Lab Interpretation Abnormal (test code = 97502-1) [facility] [id number] 04:14:28 Test Item Value Reference Range Interpretation [...] (test code = 57.0 fL 38.5-51.6 H 48196-3) RDW-CV (test code = 22.1 % 12.1-15.4 H 788-0) PLT (test code = See_Comment L [Automated 777-3) message] The sy stem which generated this result transmitted reference range : 150 - 328 10*3/ ?L. The reference r christine was not used to interpret this result as normal/abnormal . MPV (test code = Not Measure d 49214-5) IPF % (test code = 2.1 % 1.2-10.7 Platelet count 7757437188) measured by fluorescence method. NRBC/100 WBC (test See_Comment [Automat ed code = 1991588343) message] The system which generated this result transmitted reference range : 0.0 - 10.0 /100 WBCs. The refer ence range was not u sed to interpret th is result as normal/abnormal . NRBC x10^3 (test code <0.01 See_Comment [Auto mated = 6830635258) message] The s ystem which generated this result transmitted reference range : 10*3/?L. The reference range was not used to interpret this result as normal/abnormal . GRAN MAT (NEUT) % 74.8 % (test code = 770-8) IMM GRAN % (test code 2.80 % = 1497612724) LYMPH % (test code = 10.9 % 736-9) MONO % (test code = 10.4 % 5905-5) EOS % (test code = 0.7 % 713-8) BASO % (test code = 0.4 % 706-2) GRAN MAT x10^3(ANC) 8.42 10*3/uL 1.99-6.95 H (test code = 2522446224) IMM GRAN x10^3 (test 0.31 10*3/uL 0.00-0.06 H code = 5786585166) LYMPH x10^3 (test code 1.23 10*3/uL 1.09-3.23 = 731-0) MONO x10^3 (test code 1.17 10*3/uL 0.36-1.02 H = 742-7) EOS x10^3 (test code = 0.08 10*3/uL 0.06-0.53 711-2) BASO x10^3 (test code 0.04 10*3/uL 0.01-0.09 = 704-7) BASO STIPPLING (test Present A code = 703-9) SCHISTOCYTES (test 1+ A code = 800-3) Lab Interpretation Abnormal (test code = 49116-5) [facility] METABOLIC PANEL (NA, K, CL, CO2, GLUCOSE, BUN, CREATININE, CA)2020-10-29 04:00:13 Test Item Value Reference Range Interpretation Comments NA (test code = 154 mmol/L 135-145 H 7553631497) K (test code = 3.0 mmol/L 3.5-5.0 L 6589656358) CL (test code = 125 mmol/L 98-108 H 5637415733) CO2 TOTAL (test code = 20 mmol/L 23-31 L 1951422945) AGAP (test code = 2-16 6676632213) BUN (test code = 50 mg/dL 7-23 H 5796409159) GLUCOSE (test code = 144 mg/dL 70-110 H 3470812008) CREATININE (test code = 1.36 mg/dL 0.60-1.25 H 4053786418) CALCIUM (test code = 8.8 mg/dL 8.6-10.6 7983691347) eGFR (test code = mL/min/1.73m2 3054048389) JUAN LUIS (test code = JUAN LUIS) [...] tests). Lab Interpretation Abnormal (test code = 70612-1) [facility] 03:58:47 Test Item Value Reference Range Interpretation Comments MAGNESIUM (test code = 5321684498) 2.5 mg/dL 1.7-2.4 H Lab Interpretation (test code = Abnormal 78827-0) [facility]2020-10-29 03:58:47 Test Item Value Reference Range Interpretation Comments POCT GLU (test code = 5330613612) 134 mg/dL 70-110 H Lab Interpretation (test code = Abnormal 05719-1) [facility] 03:39:08 Test Item Value Reference Range Interpretation Comments Fibrinogen (test code = 5220658702) 441 mg/dL 167-453 Lab Interpretation (test code = Normal 87181-7) [facility] Test Item Value Reference Range Interpretation Comments Fibrinogen (test code = 3077490038) 441 mg/dL 167-453 Lab Interpretation (test code = Normal 14545-7) [facility]PROT[facility] / [id number] 03:39:08 Test Item Value Reference Range Interpretation [...] tions. Lab Interpretation (test Abnormal code = 66687-7) [facility] 03:39:08 Test Item Value Reference Range Interpretation Comments Fibrinogen (test code = 0644482687) 441 mg/dL 167-453 Lab Interpretation (test code = Normal 54060-5) [facility] + LACTIC [id number] 03:20:11 Test Item Value Reference Range Interpretation Comments PH (test code = 2) 7.35-7.45 H PCO2 (test code = See_Comment L [Automat ed 4216116956) message] The sy stem which generated this result transmitted reference range : 35 - 45 mmHg. The reference range was not used to interpret this result as normal/abnormal . PO2 (test code = See_Comment H [Automated 5438529060) message] The sy stem which generated this result transmitted reference range : 80 - 100 mmHg. The reference range was not used to interpret this result as normal/abnormal . HCO3 (test code = See_Comment [Automate d 1385074350) message] The sy stem which generated this result transmitted reference range : 22 - 26 mEq/L. The reference range was not used to interpret this result as normal/abnormal . BE (test code = See_Comment [Automated 6285378352) message] The sy stem which generated this result transmitted reference range : -3.0 - 3.0 mEq/ L. The reference r christine was not used to interpret this result as normal/abnormal . THB (test code = 9.3 g/dL 13.5-18.0 L 7096935260) %O2HB (test code = 97.5 % 94.0-99.0 7709223001) %COHB ART (test code = 0.3 % 0.0-1.5 7091316516) %METHB ART (test code = 0.3 % 0.4-1.5 L 3892379982) VOL%O2 ART (test code = 12.9 % 15.0-23.0 L 3067075343) NA (test code = 152 mmol/L 135-145 H 8126592237) K+ (test code = 3.0 mmol/L 3.5-5.0 L 1442144355) AC CA IONZ (test code = 5.00 mg/dL 4.50-5.30 8059768983) GLUCOSE (test code = 142 mg/dL 70-110 H 6241643469) LACTIC ACID (test code 1.59 mmol/L 0.50-2.20 = 7623550247) Lab Interpretation Abnormal (test code = 62182-0) [facility] LACTIC [id number] 03:20:11 Test Item Value Reference Range Interpretation Comments PH (test code = 2) 7.35-7.45 H PCO2 (test code = See_Comment L [Automat ed 1404154819) message] The sy stem which generated this result transmitted reference range : 35 - 45 mmHg. The reference range was not used to interpret this result as normal/abnormal . PO2 (test code = See_Comment H [Automated 4684153228) message] The sy stem which generated this result transmitted reference range : 80 - 100 mmHg. The reference range was not used to interpret this result as normal/abnormal . HCO3 (test code = See_Comment [Automate d 0039888817) message] The sy stem which generated this result transmitted reference range : 22 - 26 mEq/L. The reference range was not used to interpret this result as normal/abnormal . BE (test code = See_Comment [Automated 6113124086) message] The sy stem which generated this result transmitted reference range : -3.0 - 3.0 mEq/ L. The reference r christine was not used to interpret this result as normal/abnormal . THB (test code = 9.3 g/dL 13.5-18.0 L 3518248137) %O2HB (test code = 97.5 % 94.0-99.0 7989208395) %COHB ART (test code = 0.3 % 0.0-1.5 6137272011) %METHB ART (test code = 0.3 % 0.4-1.5 L 9353738443) VOL%O2 ART (test code = 12.9 % 15.0-23.0 L 6916165892) NA (test code = 152 mmol/L 135-145 H 1324295070) K+ (test code = 3.0 mmol/L 3.5-5.0 L 0379701126) AC CA IONZ (test code = 5.00 mg/dL 4.50-5.30 7031306675) GLUCOSE (test code = 142 mg/dL 70-110 H 6350709740) LACTIC ACID (test code 1.59 mmol/L 0.50-2.20 = 2564082880) Lab Interpretation Abnormal (test code = 63481-7) [facility] [id number] 03:20:11 Test Item Value Reference Range Interpretation Comments PH (test code = 2) 7.35-7.45 H PCO2 (test code = See_Comment L [Automat ed 7799840083) message] The sy stem which generated this result transmitted reference range : 35 - 45 mmHg. The reference range was not used to interpret this result as normal/abnormal . PO2 (test code = See_Comment H [Automated 9332429462) message] The sy stem which generated this result transmitted reference range : 80 - 100 mmHg. The reference range was not used to interpret this result as normal/abnormal . HCO3 (test code = See_Comment [Automate d 5359306175) message] The sy stem which generated this result transmitted reference range : 22 - 26 mEq/L. The reference range was not used to interpret this result as normal/abnormal . BE (test code = See_Comment [Automated 7324137655) message] The sy stem which generated this result transmitted reference range : -3.0 - 3.0 mEq/ L. The reference r christine was not used to interpret this result as normal/abnormal . THB (test code = 9.3 g/dL 13.5-18.0 L 1822863246) %O2HB (test code = 97.5 % 94.0-99.0 0380677330) %COHB ART (test code = 0.3 % 0.0-1.5 6058960447) %METHB ART (test code = 0.3 % 0.4-1.5 L 8461734650) VOL%O2 ART (test code = 12.9 % 15.0-23.0 L 4595761940) NA (test code = 152 mmol/L 135-145 H 9024581522) K+ (test code = 3.0 mmol/L 3.5-5.0 L 3683349322) AC CA IONZ (test code = 5.00 mg/dL 4.50-5.30 3297204639) GLUCOSE (test code = 142 mg/dL 70-110 H 6626663899) LACTIC ACID (test code 1.59 mmol/L 0.50-2.20 = 3623992457) Lab Interpretation Abnormal (test code = 00332-6) [facility] [id number] 03:20:06 No acute intracranial hemorrhage or mass [...] reviewed this study and agree with theabove report.[facility] [id number] 03:20:06 No acute intracranial hemorrhage or mass [...] reviewed this study and agree with theabove report.[facility] [id number] 03:20:06 No acute intracranial hemorrhage or mass [...] cells. A nasogastric tube ispartially visualized. [facility], Radiant Results Inft User - 10/28/2020 [...] or mass effect.Preliminary Report Dictated by Resident: WoWilliam Johnson MD., have reviewed this study and agree with theabove report.[facility] GLUCOSE (AUTOMATED) 2020-10-29 01:10:09 Test Item Value Reference Range Interpretation Comments POCT GLU (test code = 8135589426) 178 mg/dL 70-110 H Lab Interpretation (test code = Abnormal 93765-9) [facility] GLUCOSE (AUTOMATED)2020-10-28 21:43:56 Test Item Value Reference Range Interpretation Comments POCT GLU (test code = 5254245671) 131 mg/dL 70-110 H Lab Interpretation (test code = Abnormal 97255-5) [facility] GLUCOSE (AUTOMATED)2020-10-28 16:37:06 Test Item Value Reference Range Interpretation Comments POCT GLU (test code = 0526425241) 345 mg/dL 70-110 H Lab Interpretation (test code = Abnormal 25229-3) [facility] [id number] 15:26:11EXAM: XR CHEST 1 VW HISTORY: COUGH [...] tube passes through the thorax and into thestomach.[facility] + LACTIC [id number] 13:57:21 Test Item Value Reference Range Interpretation Comments PH (test code = 2) 7.35-7.45 H PCO2 (test code = See_Comment L [Automat ed 6884560466) message] The sy stem which generated this result transmitted reference range : 35 - 45 mmHg. The reference range was not used to interpret this result as normal/abnormal . PO2 (test code = See_Comment L [Automated 8539336250) message] The sy stem which generated this result transmitted reference range : 80 - 100 mmHg. The reference range was not used to interpret this result as normal/abnormal . HCO3 (test code = See_Comment L [Automate d 1729245483) message] The sy stem which generated this result transmitted reference range : 22 - 26 mEq/L. The reference range was not used to interpret this result as normal/abnormal . BE (test code = See_Comment L [Automated 0038398642) message] The sy stem which generated this result transmitted reference range : -3.0 - 3.0 mEq/ L. The reference r christine was not used to interpret this result as normal/abnormal . THB (test code = 10.2 g/dL 13.5-18.0 L 3646495914) %O2HB (test code = 89.8 % 94.0-99.0 L 1292438173) %COHB ART (test code = 0.3 % 0.0-1.5 8986793945) %METHB ART (test code = 0.3 % 0.4-1.5 L 7630412985) VOL%O2 ART (test code = 12.9 % 15.0-23.0 L 4518577250) NA (test code = 151 mmol/L 135-145 H 6546865643) K+ (test code = 3.7 mmol/L 3.5-5.0 4862562378) AC CA IONZ (test code = 5.10 mg/dL 4.50-5.30 7465306253) GLUCOSE (test code = 359 mg/dL 70-110 H 4826397919) LACTIC ACID (test code 1.43 mmol/L 0.50-2.20 = 2327440447) Lab Interpretation Abnormal (test code = 31205-6) [facility] GLUCOSE (AUTOMATED)2020-10-28 13:45:52 Test Item Value Reference Range Interpretation Comments POCT GLU (test code = 9093056728) 355 mg/dL 70-110 H Lab Interpretation (test code = Abnormal 54360-2) [facility] GLUCOSE (AUTOMATED)2020-10-28 13:18:15 Test Item Value Reference Range Interpretation Comments POCT GLU (test code = 5248405394) 322 mg/dL 70-110 H Lab Interpretation (test code = Abnormal 35085-0) [facility]2020-10-28 10:42:20 Test Item Value Reference Range Interpretation Comments POCT GLU (test code = 0607871543) 303 mg/dL 70-110 H Lab Interpretation (test code = Abnormal 34792-9) [facility] [id number] 08:53:59 Test Item Value Reference Range Interpretation Comments TROPONIN I (test 0.352 ng/mL See_Comment H [Automated code = 3680622726) message] The system which generated this result [...] ? Lab Interpretation Abnormal (test code = 94801-3) [facility] (NA, K, CL, CO2, GLUCOSE, BUN, CREATININE, CA)2020-10-28 08:42:28 Test Item Value Reference Range Interpretation Comments NA (test code = 151 mmol/L 135-145 H 6892872388) K (test code = 3.6 mmol/L 3.5-5.0 9421700384) CL (test code = 125 mmol/L 98-108 H 0556195932) CO2 TOTAL (test code = 20 mmol/L 23-31 L 0944182743) AGAP (test code = 2-16 4958375266) BUN (test code = 50 mg/dL 7-23 H 4778700362) GLUCOSE (test code = 303 mg/dL 70-110 H 5895520479) CREATININE (test code = 1.25 mg/dL 0.60-1.25 2275097350) CALCIUM (test code = 9.1 mg/dL 8.6-10.6 9697410294) eGFR (test code = mL/min/1.73m2 8362245455) JUAN LUIS (test code = JUAN LUIS) [...] tests). Lab Interpretation Abnormal (test code = 83482-4) [facility] WITHOUT [id number] 08:18:28 Test Item Value Reference Range Interpretation Comments WBC (test code = See_Comment [Automated message] 6690-2) The system [employer] generated this result transmitted ref erence range: 4.20 - 1 0.70 10*3/?L. The reference range was not used to int erpret this result as normal/abnormal . RBC (test code = 789-8) See_Comment L [Au tomated message] The system [employer] generated this result transmitted ref erence range: [...] 777-3) See_Comment [Au tomated message] The system [employer] generated this result transmitted ref erence range: 150 - 32 8 10*3/?L. The reference range was not used to int erpret this result as normal/abnormal . MPV (test code = 12.0 fL 9.8-13.0 28135-1) RDW-CV (test code = 22.0 % 12.1-15.4 H 788-0) RDW-SD (test code = 56.7 fL 38.5-51.6 H 08713-9) NRBC x10^3 (test code = <0.01 See_Comment [Au tomated message] 4194593830) The system [employer] generated this result transmitted ref erence range: 10*3/?L. The reference range was not used to int erpret this result as normal/abnormal . NRBC/100 WBC (test code See_Comment [Au tomated message] = 9796151792) The system [facility] generated this result transmitted ref erence range: 0.0 - 10 .0 /100 WBCs. The reference range was not used to int erpret this result as normal/abnormal . IPF % (test code = 1.6 % 1.2-10.7 Platelet count 9084918515) measured by fluorescence me thod. Lab Interpretation Abnormal (test code = 59952-6) [facility] GLUCOSE (AUTOMATED)2020-10-28 07:38:54 Test Item Value Reference Range Interpretation Comments POCT GLU (test code = 1687271238) 302 mg/dL 70-110 H Lab Interpretation (test code = Abnormal 35943-1) [facility] GLUCOSE (AUTOMATED)2020-10-28 04:16:52 Test Item Value Reference Range Interpretation Comments POCT GLU (test code = 0673070018) 306 mg/dL 70-110 H Lab Interpretation (test code = Abnormal 85850-4) [facility] CULTURE [id number] 03:01:27 Test Item Value Reference Range Interpretation Comments Blood Culture-Aerobic No organisms No growth Previo us (test code = 54302-0) isolated prelim inary verified result was Culture [...] Culture-Anaerobic isolated preliminar y (test code = 94244-5) verifi ed result was Culture In Progress [...] CDT Lab Interpretation Normal (test code = 00782-9) [facility] CULTURE [id number] 03:01:27 Test Item Value Reference Range Interpretation Comments Blood Culture-Aerobic No organisms No growth Previo us (test code = 35645-4) isolated prelim inary verified result was Culture [...] Culture-Anaerobic isolated preliminar y (test code = 67457-2) verifi ed result was Culture In Progress [...] CDT Lab Interpretation Normal (test code = 25869-7) [facility] [id number] 02:04:19 Test Item Value Reference Range Interpretation Comments TROPONIN I (test 0.236 ng/mL See_Comment H [Automated code = 9399978087) message] The system which generated this result [...] ? Lab Interpretation Abnormal (test code = 37280-2) [facility] GLUCOSE (AUTOMATED)2020-10-28 01:29:26 Test Item Value Reference Range Interpretation Comments POCT GLU (test code = 5565564184) 262 mg/dL 70-110 H Lab Interpretation (test code = Abnormal 86253-7) [facility] METABOLIC PANEL (NA, K, CL, CO2, GLUCOSE, BUN, CREATININE, CA)2020-10-27 22:22:07 Test Item Value Reference Range Interpretation Comments NA (test code = 151 mmol/L 135-145 H 6796038915) K (test code = 3.2 mmol/L 3.5-5.0 L 2513242318) CL (test code = 124 mmol/L 98-108 H 6256696106) CO2 TOTAL (test code = 20 mmol/L 23-31 L 7315015568) AGAP (test code = 2-16 6924184810) BUN (test code = 49 mg/dL 7-23 H 9551259714) GLUCOSE (test code = 271 mg/dL 70-110 H 0267277477) CREATININE (test code = 1.24 mg/dL 0.60-1.25 2224052761) CALCIUM (test code = 8.7 mg/dL 8.6-10.6 1305796151) eGFR (test code = mL/min/1.73m2 6225042402) JUAN LUIS (test code = JUAN LUIS) [...] tests). Lab Interpretation Abnormal (test code = 35271-6) [facility] GLUCOSE (AUTOMATED)2020-10-27 21:31:54 Test Item Value Reference Range Interpretation Comments POCT GLU (test code = 5552652964) 308 mg/dL 70-110 H Lab Interpretation (test code = Abnormal 66734-6) [facility] GLUCOSE (AUTOMATED)2020-10-27 19:14:20 Test Item Value Reference Range Interpretation Comments POCT GLU (test code = 7897485413) 281 mg/dL 70-110 H Lab Interpretation (test code = Abnormal 99982-4) [facility] GLUCOSE (AUTOMATED)2020-10-27 16:11:09 Test Item Value Reference Range Interpretation Comments POCT GLU (test code = 7382545038) 278 mg/dL 70-110 H Lab Interpretation (test code = Abnormal 43463-0) [facility] - To confirm Dobhoff [...] the abdomen and pelvis were obtained. [facility], Radiant Results Inft User - 10/27/2020 [...] reviewed this study and agree with theabove report.[facility] Abdominal 1 View - To confirm [...] reviewed this study and agree with theabove report.[facility] - To confirm Dobhoff [...] this study and agree with theabove report.[facility] WITH [id number] 14:56:09 Test Item Value Reference Range Interpretation [...] (test code = 59.0 fL 38.5-51.6 H 13833-0) RDW-CV (test code = 21.9 % 12.1-15.4 H 788-0) PLT (test code = See_Comment [Automated 777-3) message] The sy stem which generated this result transmitted reference range : 150 - 328 10*3/ ?L. The reference r christine was not used to interpret this result as normal/abnormal . MPV (test code = 11.7 fL 9.8-13.0 61913-4) IPF % (test code = 2.6 % 1.2-10.7 Platelet count 6373279615) measured by fluorescence method. NRBC/100 WBC (test See_Comment [Automat ed code = 8935669765) message] The system which generated this result transmitted reference range : 0.0 - 10.0 /100 WBCs. The refer ence range was not u sed to interpret th is result as normal/abnormal . NRBC x10^3 (test code <0.01 See_Comment [Auto mated = 1907118109) message] The s ystem which generated this result transmitted reference range : 10*3/?L. The reference range was not used to interpret this result as normal/abnormal . GRAN MAT (NEUT) % 73.4 % (test code = 770-8) IMM GRAN % (test code 4.90 % = 4574312980) LYMPH % (test code = 6.7 % 736-9) MONO % (test code = 14.3 % 5905-5) EOS % (test code = 0.4 % 713-8) BASO % (test code = 0.3 % 706-2) GRAN MAT x10^3(ANC) 8.45 10*3/uL 1.99-6.95 H (test code = 9787395948) IMM GRAN x10^3 (test 0.57 10*3/uL 0.00-0.06 H code = 3837195203) LYMPH x10^3 (test code 0.77 10*3/uL 1.09-3.23 L = 731-0) MONO x10^3 (test code 1.65 10*3/uL 0.36-1.02 H = 742-7) EOS x10^3 (test code = 0.05 10*3/uL 0.06-0.53 L 711-2) BASO x10^3 (test code 0.04 10*3/uL 0.01-0.09 = 704-7) YVES CELLS (test code 2+ See_Comment A [Auto mated = 3390-9) message] The sy stem which generated this result transmitted reference range : (none). The reference range was not used to interpret this result as normal/abnormal . SCHISTOCYTES (test 1+ A code = 800-3) Lab Interpretation Abnormal (test code = 72090-2) [facility]2020-10-27 12:58:08 Test Item Value Reference Range Interpretation Comments POCT GLU (test code = 5610696350) 381 mg/dL 70-110 H Lab Interpretation (test code = Abnormal 42173-9) [id number] 11:41:52 Test Item Value Reference Range Interpretation Comments TROPONIN I (test 0.229 ng/mL See_Comment H [Automated code = 7652152432) message] The system which generated this result [...] ? Lab Interpretation Abnormal (test code = 84822-4) [facility] (NA, K, CL, CO2, GLUCOSE, BUN, CREATININE, CA)2020-10-27 11:41:31 Test Item Value Reference Range Interpretation Comments NA (test code = 149 mmol/L 135-145 H 5427423231) K (test code = 4.2 mmol/L 3.5-5.0 Slight 3976762604) hemolysis CL (test code = 122 mmol/L 98-108 H 9110725871) CO2 TOTAL (test code 17 mmol/L 23-31 L = 7034620442) AGAP (test code = 2-16 8036264705) BUN (test code = 52 mg/dL 7-23 H Slight 0558536791) hemolysis GLUCOSE (test code = 346 mg/dL 70-110 H 7047090539) CREATININE (test code 1.21 mg/dL 0.60-1.25 = 0081283098) CALCIUM (test code = 8.5 mg/dL 8.6-10.6 L 6425788365) eGFR (test code = mL/min/1.73m2 1069366492) JUAN LUIS (test code = JUAN LUIS) [...] tests). Lab Interpretation Abnormal (test code = 49770-0) [facility] [id number] 05:53:41 Test Item Value Reference Range Interpretation Comments TROPONIN I (test 0.163 ng/mL See_Comment H [Automated code = 2358998645) message] The system which generated this result [...] ? Lab Interpretation Abnormal (test code = 34131-4) [facility] (NA, K, CL, CO2, GLUCOSE, BUN, CREATININE, CA)2020-10-27 05:39:56 Test Item Value Reference Range Interpretation Comments NA (test code = 152 mmol/L 135-145 H 7286162292) K (test code = 3.9 mmol/L 3.5-5.0 1985049225) CL (test code = 123 mmol/L 98-108 H 1894766563) CO2 TOTAL (test code = 13 mmol/L 23-31 L 0603348265) AGAP (test code = 2-16 5519189387) BUN (test code = 52 mg/dL 7-23 H 0137682829) GLUCOSE (test code = 284 mg/dL 70-110 H 5939922488) CREATININE (test code = 1.31 mg/dL 0.60-1.25 H 6068277711) CALCIUM (test code = 8.6 mg/dL 8.6-10.6 6486908573) eGFR (test code = mL/min/1.73m2 6497331563) JUAN LUIS (test code = JUAN LUIS) [...] tests). Lab Interpretation Abnormal (test code = 48607-4) [facility]2020-10-27 03:12:41 Test Item Value Reference Range Interpretation Comments POCT GLU (test code = 5419282044) 253 mg/dL 70-110 H Lab Interpretation (test code = Abnormal 54788-2) [facility] (NA, K, CL, CO2, GLUCOSE, BUN, CREATININE, CA)2020-10-26 23:37:44 Test Item Value Reference Range Interpretation Comments NA (test code = 152 mmol/L 135-145 H 7452458293) K (test code = 4.1 mmol/L 3.5-5.0 0915486292) CL (test code = 123 mmol/L 98-108 H 6181796798) CO2 TOTAL (test code = 11 mmol/L 23-31 L 8983169834) AGAP (test code = 2-16 H 4598572926) BUN (test code = 54 mg/dL 7-23 H 4524569714) GLUCOSE (test code = 193 mg/dL 70-110 H 8461883267) CREATININE (test code = 1.41 mg/dL 0.60-1.25 H 2117330690) CALCIUM (test code = 9.1 mg/dL 8.6-10.6 2039742681) eGFR (test code = mL/min/1.73m2 0270023236) JUAN LUIS (test code = JUAN LUIS) [...] tests). Lab Interpretation Abnormal (test code = 71824-3) [facility]2020-10-26 21:41:08 Test Item Value Reference Range Interpretation Comments POCT GLU (test code = 6821576271) 204 mg/dL 70-110 H Lab Interpretation (test code = Abnormal 32856-7) [facility] W [id number] 17:26:11 1. ?Multifocal mixed attenuation opacities and [...] TECHNIQUE: CT examination acquisition dated 10/22/2020 from [facility], labeled with the patients name, was submitted [...] of a left total hip arthroplasty. [facility], Radiant Results Inft User - 10/26/2020 12:27 PM CDTEXAM: CT CHEST, ABDOMEN AND PELVIS WITHOUT CONTRAST, CONSULTATION OUTSIDEHISTORY: 65 years -old Male with uti - shock COMPARISON: None, correlation with CT abdomen pelvis with and withoutcontrast from 09/20/2017TECHNIQUE: CT examination acquisition dated 10/22/2020 from [facility], labeled with the patients name, was submitted [...] reviewed this study and agree with the abovereport.[facility] W [id number] 17:26:11 1. ?Multifocal mixed attenuation opacities and [...] TECHNIQUE: CT examination acquisition dated 10/22/2020 from [facility], labeled with the patients name, was submitted [...] 09/20/2017TECHNIQUE: CT examination acquisition dated 10/22/2020 from [facility], labeled with the patients name, was submitted [...] reviewed this study and agree with the abovereport.[facility] W [id number] 17:26:11 1. ?Multifocal mixed attenuation opacities and [...] TECHNIQUE: CT examination acquisition dated 10/22/2020 from [facility], labeled with the patients name, was submitted [...] of a left total hip arthroplasty. [facility], Radiant Results Inft User - 11/08/2020 9:47 AM CDTEXAM: CT CHEST, ABDOMEN AND PELVIS WITHOUT CONTRAST, CONSULTATION OUTSIDEHISTORY: 65 years -old Male with uti - shock COMPARISON: None, correlation with CT abdomen pelvis with and withoutcontrast from 09/20/2017TECHNIQUE: CT examination acquisition dated 10/22/2020 from [facility], labeled with the patients name, was submitted [...] reviewed this study and agree with the abovereport.[facility] GLUCOSE (AUTOMATED)2020-10-26 16:56:22 Test Item Value Reference Range Interpretation Comments POCT GLU (test code = 4751061418) 179 mg/dL 70-110 H Lab Interpretation (test code = Abnormal 84297-4) [facility] GLUCOSE (AUTOMATED)2020-10-26 13:03:19 Test Item Value Reference Range Interpretation Comments POCT GLU (test code = 8126895144) 164 mg/dL 70-110 H Lab Interpretation (test code = Abnormal 26250-4) [facility] [id number] 09:45:42 Test Item Value Reference Range Interpretation Comments TROPONIN I (test 0.120 ng/mL See_Comment H [Automated code = 8038726663) message] The system which generated this result [...] ? Lab Interpretation Abnormal (test code = 47769-6) [facility] WITH [id number] 09:41:39 Test Item Value Reference Range Interpretation [...] (test code = 58.0 fL 38.5-51.6 H 22023-4) RDW-CV (test code = 21.2 % 12.1-15.4 H 788-0) PLT (test code = See_Comment [Automated 777-3) message] The sy stem which generated this result transmitted reference range : 150 - 328 10*3/ ?L. The reference r christine was not used to interpret this result as normal/abnormal . MPV (test code = 12.3 fL 9.8-13.0 95754-5) IPF % (test code = 2.6 % 1.2-10.7 Platelet count 8773082865) measured by fluorescence method. NRBC/100 WBC (test See_Comment [Automat ed code = 5170106903) message] The system which generated this result transmitted reference range : 0.0 - 10.0 /100 WBCs. The refer ence range was not u sed to interpret th is result as normal/abnormal . NRBC x10^3 (test code See_Comment [Auto mated = 5407147782) message] The s ystem which generated this result transmitted reference range : 10*3/?L. The reference range was not used to interpret this result as normal/abnormal . GRAN MAT (NEUT) % 84.2 % (test code = 770-8) IMM GRAN % (test code 2.50 % = 1714784894) LYMPH % (test code = 4.7 % 736-9) MONO % (test code = 8.1 % 5905-5) EOS % (test code = 0.1 % 713-8) BASO % (test code = 0.4 % 706-2) GRAN MAT x10^3(ANC) 13.91 10*3/uL 1.99-6.95 H (test code = 8231857156) IMM GRAN x10^3 (test 0.42 10*3/uL 0.00-0.06 H code = 0091410486) LYMPH x10^3 (test 0.77 10*3/uL 1.09-3.23 L code = 731-0) MONO x10^3 (test code 1.33 10*3/uL 0.36-1.02 H = 742-7) EOS x10^3 (test code <0.03 0.06-0.53 L = 711-2) BASO x10^3 (test code 0.06 10*3/uL 0.01-0.09 = 704-7) BASO STIPPLING (test Present A code = 703-9) YVES CELLS (test code 2+ See_Comment A [Auto mated = 1790-9) message] The sy stem which generated this result transmitted reference range : (none). The reference range was not used to interpret this result as normal/abnormal . SCHISTOCYTES (test 1+ A code = 800-3) Lab Interpretation Abnormal (test code = 93734-0) [facility] METABOLIC PANEL (NA, K, CL, CO2, GLUCOSE, BUN, CREATININE, CA)2020-10-26 09:35:35 Test Item Value Reference Range Interpretation Comments NA (test code = 151 mmol/L 135-145 H 3300769724) K (test code = 3.6 mmol/L 3.5-5.0 7890082605) CL (test code = 121 mmol/L 98-108 H 7999273743) CO2 TOTAL (test code = 15 mmol/L 23-31 L 4679902181) AGAP (test code = 2-16 9867679690) BUN (test code = 57 mg/dL 7-23 H 5946615008) GLUCOSE (test code = 168 mg/dL 70-110 H 7625767728) CREATININE (test code = 1.46 mg/dL 0.60-1.25 H 9193761716) CALCIUM (test code = 9.1 mg/dL 8.6-10.6 8854987578) eGFR (test code = mL/min/1.73m2 3575711115) JUAN LUIS (test code = JUAN LUIS) [...] tests). Lab Interpretation Abnormal (test code = 60708-7) [facility] Test Item Value Reference Range Interpretation Comments MAGNESIUM (test code = 4680329418) 2.3 mg/dL 1.7-2.4 Lab Interpretation (test code = Normal 31601-3) [facility] [id number] 02:54:02 Test Item Value Reference Range Interpretation Comments TROPONIN I (test 0.117 ng/mL See_Comment H [Automated code = 6412143417) message] The system which generated this result [...] ? Lab Interpretation Abnormal (test code = 16457-5) [facility] GLUCOSE (AUTOMATED)2020-10-26 02:34:02 Test Item Value Reference Range Interpretation Comments POCT GLU (test code = 1667746188) 193 mg/dL 70-110 H Lab Interpretation (test code = Abnormal 89435-9) [facility] GLUCOSE (AUTOMATED)2020-10-25 23:37:15 Test Item Value Reference Range Interpretation Comments POCT GLU (test code = 8124533692) 166 mg/dL 70-110 H Lab Interpretation (test code = Abnormal 43503-0) [facility] [id number] 20:45:53 Test Item Value Reference Range Interpretation Comments TROPONIN I (test 0.136 ng/mL See_Comment H [Automated code = 8803423246) message] The system which generated this result [...] ? Lab Interpretation Abnormal (test code = 18871-6) [facility] 20:27:09 Test Item Value Reference Range Interpretation Comments MAGNESIUM (test code = 2281810013) 2.3 mg/dL 1.7-2.4 Lab Interpretation (test code = Normal 97244-9) [facility] (NA, K, CL, CO2, GLUCOSE, BUN, CREATININE, CA)2020-10-25 20:06:41 Test Item Value Reference Range Interpretation Comments NA (test code = 147 mmol/L 135-145 H 2612529622) K (test code = 3.8 mmol/L 3.5-5.0 4717820564) CL (test code = 118 mmol/L 98-108 H 0890773594) CO2 TOTAL (test code = 15 mmol/L 23-31 L 4862083007) AGAP (test code = 2-16 9675886049) BUN (test code = 61 mg/dL 7-23 H 9442411465) GLUCOSE (test code = 174 mg/dL 70-110 H 1542897888) CREATININE (test code = 1.59 mg/dL 0.60-1.25 H 7962551225) CALCIUM (test code = 9.3 mg/dL 8.6-10.6 5685215263) eGFR (test code = mL/min/1.73m2 3647490404) JUAN LUIS (test code = JUAN LUIS) [...] tests). Lab Interpretation Abnormal (test code = 87688-9) [facility] + LACTIC [id number] 19:54:16 Test Item Value Reference Range Interpretation Comments PH (test code = 2) 7.35-7.45 PCO2 (test code = See_Comment L [Automat ed 4997352100) message] The sy stem which generated this result transmitted reference range : 35 - 45 mmHg. The reference range was not used to interpret this result as normal/abnormal . PO2 (test code = See_Comment [Automated 6278296700) message] The sy stem which generated this result transmitted reference range : 80 - 100 mmHg. The reference range was not used to interpret this result as normal/abnormal . HCO3 (test code = See_Comment L [Automate d 5953883343) message] The sy stem which generated this result transmitted reference range : 22 - 26 mEq/L. The reference range was not used to interpret this result as normal/abnormal . BE (test code = See_Comment L [Automated 5340242141) message] The sy stem which generated this result transmitted reference range : -3.0 - 3.0 mEq/ L. The reference r christine was not used to interpret this result as normal/abnormal . THB (test code = 10.0 g/dL 13.5-18.0 L 6406362329) %O2HB (test code = 96.5 % 94.0-99.0 7126925586) %COHB ART (test code = 0.2 % 0.0-1.5 7326247592) %METHB ART (test code = 0.3 % 0.4-1.5 L 7736697828) VOL%O2 ART (test code = 13.7 % 15.0-23.0 L 6830044161) NA (test code = 149 mmol/L 135-145 H 2994997933) K+ (test code = 3.8 mmol/L 3.5-5.0 7050127517) AC CA IONZ (test code = 5.20 mg/dL 4.50-5.30 2485719645) GLUCOSE (test code = 178 mg/dL 70-110 H 8970319144) LACTIC ACID (test code 1.36 mmol/L 0.50-2.20 = 7603033094) Lab Interpretation Abnormal (test code = 01100-3) [facility] LACTIC [id number] 18:33:03 Test Item Value Reference Range Interpretation Comments PH (test code = 2) 7.35-7.45 L PCO2 (test code = See_Comment L [Automat ed 5560135970) message] The sy stem which generated this result transmitted reference range : 35 - 45 mmHg. The reference range was not used to interpret this result as normal/abnormal . PO2 (test code = See_Comment [Automated 3064913416) message] The sy stem which generated this result transmitted reference range : 80 - 100 mmHg. The reference range was not used to interpret this result as normal/abnormal . HCO3 (test code = See_Comment L [Automate d 5867499154) message] The sy stem which generated this result transmitted reference range : 22 - 26 mEq/L. The reference range was not used to interpret this result as normal/abnormal . BE (test code = See_Comment L [Automated 5138315824) message] The sy stem which generated this result transmitted reference range : -3.0 - 3.0 mEq/ L. The reference r christine was not used to interpret this result as normal/abnormal . THB (test code = 11.4 g/dL 13.5-18.0 L 6362569138) %O2HB (test code = 97.0 % 94.0-99.0 1369543752) %COHB ART (test code = 0.3 % 0.0-1.5 7583159472) %METHB ART (test code = 0.0 % 0.4-1.5 L 9688859703) VOL%O2 ART (test code = 15.7 % 15.0-23.0 9071335299) NA (test code = 147 mmol/L 135-145 H 7604012006) K+ (test code = 3.8 mmol/L 3.5-5.0 3314225227) AC CA IONZ (test code = 5.30 mg/dL 4.50-5.30 9101904084) GLUCOSE (test code = 173 mg/dL 70-110 H 9032190625) LACTIC ACID (test code 1.08 mmol/L 0.50-2.20 = 3635835807) Lab Interpretation Abnormal (test code = 41211-8) [facility]2020-10-25 17:17:08 Test Item Value Reference Range Interpretation Comments POCT GLU (test code = 6921662035) 179 mg/dL 70-110 H Lab Interpretation (test code = Abnormal 82911-0) [facility] + LACTIC [id number] 15:31:09 Test Item Value Reference Range Interpretation Comments PH (test code = 2) 7.35-7.45 PCO2 (test code = See_Comment L [Automat ed 8917223178) message] The sy stem which generated this result transmitted reference range : 35 - 45 mmHg. The reference range was not used to interpret this result as normal/abnormal . PO2 (test code = See_Comment [Automated 1383533911) message] The sy stem which generated this result transmitted reference range : 80 - 100 mmHg. The reference range was not used to interpret this result as normal/abnormal . HCO3 (test code = See_Comment L [Automate d 1974370472) message] The sy stem which generated this result transmitted reference range : 22 - 26 mEq/L. The reference range was not used to interpret this result as normal/abnormal . BE (test code = See_Comment L [Automated 9978198054) message] The sy stem which generated this result transmitted reference range : -3.0 - 3.0 mEq/ L. The reference r christine was not used to interpret this result as normal/abnormal . THB (test code = 9.3 g/dL 13.5-18.0 L 9075278055) %O2HB (test code = 96.5 % 94.0-99.0 5470046533) %COHB ART (test code = 0.3 % 0.0-1.5 5553727223) %METHB ART (test code = 0.3 % 0.4-1.5 L 4021574270) VOL%O2 ART (test code = 12.8 % 15.0-23.0 L 5358787554) NA (test code = 144 mmol/L 135-145 6957722737) K+ (test code = 3.6 mmol/L 3.5-5.0 9437235801) AC CA IONZ (test code = 5.10 mg/dL 4.50-5.30 9348287378) GLUCOSE (test code = 177 mg/dL 70-110 H 8035278272) LACTIC ACID (test code 0.92 mmol/L 0.50-2.20 = 1118372481) Lab Interpretation Abnormal (test code = 32544-0) [facility] GLUCOSE (AUTOMATED)2020-10-25 12:43:51 Test Item Value Reference Range Interpretation Comments POCT GLU (test code = 3309056789) 213 mg/dL 70-110 H Lab Interpretation (test code = Abnormal 91924-2) [facility] WITH [id number] 10:09:26 Test Item Value Reference Range Interpretation [...] (test code = 56.3 fL 38.5-51.6 H 04814-5) RDW-CV (test code = 20.6 % 12.1-15.4 H 788-0) PLT (test code = See_Comment [Automated 777-3) message] The sy stem which generated this result transmitted reference range : 150 - 328 10*3/ ?L. The reference r christine was not used to interpret this result as normal/abnormal . MPV (test code = 12.6 fL 9.8-13.0 83657-0) IPF % (test code = 2.3 % 1.2-10.7 Platelet count 2283632673) measured by fluorescence method. NRBC/100 WBC (test See_Comment [Automat ed code = 3617811356) message] The system which generated this result transmitted reference range : 0.0 - 10.0 /100 WBCs. The refer ence range was not u sed to interpret th is result as normal/abnormal . NRBC x10^3 (test code See_Comment [Auto mated = 3533943460) message] The s ystem which generated this result transmitted reference range : 10*3/?L. The reference range was not used to interpret this result as normal/abnormal . GRAN MAT (NEUT) % 89.5 % (test code = 770-8) IMM GRAN % (test code 2.30 % = 2199583721) LYMPH % (test code = 3.9 % 736-9) MONO % (test code = 3.8 % 5905-5) EOS % (test code = 0.1 % 713-8) BASO % (test code = 0.4 % 706-2) GRAN MAT x10^3(ANC) 13.12 10*3/uL 1.99-6.95 H (test code = 9614032544) IMM GRAN x10^3 (test 0.34 10*3/uL 0.00-0.06 H code = 2340630076) LYMPH x10^3 (test 0.57 10*3/uL 1.09-3.23 L code = 731-0) MONO x10^3 (test code 0.56 10*3/uL 0.36-1.02 = 742-7) EOS x10^3 (test code <0.03 0.06-0.53 L = 711-2) BASO x10^3 (test code 0.06 10*3/uL 0.01-0.09 = 704-7) YVES CELLS (test code 2+ See_Comment A [Auto mated = 1690-9) message] The sy stem which generated this result transmitted reference range : (none). The reference range was not used to interpret this result as normal/abnormal . SCHISTOCYTES (test 1+ A code = 800-3) Lab Interpretation Abnormal (test code = 91876-2) [facility] METABOLIC PANEL (NA, K, CL, CO2, GLUCOSE, BUN, CREATININE, CA)2020-10-25 09:03:31 Test Item Value Reference Range Interpretation Comments NA (test code = 147 mmol/L 135-145 H 5428035235) K (test code = 3.6 mmol/L 3.5-5.0 8287136477) CL (test code = 115 mmol/L 98-108 H 4295832535) CO2 TOTAL (test code = 14 mmol/L 23-31 L 2861531029) AGAP (test code = 2-16 H 1316809476) BUN (test code = 58 mg/dL 7-23 H 0361184799) GLUCOSE (test code = 193 mg/dL 70-110 H 7617959184) CREATININE (test code = 1.58 mg/dL 0.60-1.25 H 9834824389) CALCIUM (test code = 9.3 mg/dL 8.6-10.6 3523329485) eGFR (test code = mL/min/1.73m2 0320157066) JUAN LUIS (test code = JUAN LUIS) [...] tests). Lab Interpretation Abnormal (test code = 34980-2) [facility] Test Item Value Reference Range Interpretation Comments MAGNESIUM (test code = 8235783659) 2.2 mg/dL 1.7-2.4 Lab Interpretation (test code = Normal 69980-6) [facility] GLUCOSE (AUTOMATED)2020-10-25 01:29:10 Test Item Value Reference Range Interpretation Comments POCT GLU (test code = 1823483412) 135 mg/dL 70-110 H Lab Interpretation (test code = Abnormal 29397-5) [facility] GLUCOSE (AUTOMATED)2020-10-24 21:38:54 Test Item Value Reference Range Interpretation Comments POCT GLU (test code = 3390086538) 131 mg/dL 70-110 H Lab Interpretation (test code = Abnormal 42949-1) [facility] HEAD WO [id number] 20:06:13 No acute intracranial abnormality. Bilateral mastoid [...] reviewed this study and agree with the abovereport.[facility]2020-10-24 16:52:54 Test Item Value Reference Range Interpretation Comments POCT GLU (test code = 7634783690) 137 mg/dL 70-110 H Lab Interpretation (test code = Abnormal 56049-1) [facility] - To confirm nasogastric [...] views of the abdomen were obtained. [facility], Radiant Results Inft User - 10/24/2020 [...] reviewed this study and agree with theabove report.[facility]2020-10-24 12:53:15 Test Item Value Reference Range Interpretation Comments POCT GLU (test code = 8530246135) 142 mg/dL 70-110 H Lab Interpretation (test code = Abnormal 83642-1) [facility] WITH [id number] 10:52:23 Test Item Value Reference Range Interpretation [...] (test code = 55.3 fL 38.5-51.6 H 75514-1) RDW-CV (test code = 20.4 % 12.1-15.4 H 788-0) PLT (test code = See_Comment [Automated 777-3) message] The sy stem which generated this result transmitted reference range : 150 - 328 10*3/ ?L. The reference r christine was not used to interpret this result as normal/abnormal . MPV (test code = 12.8 fL 9.8-13.0 86623-4) IPF % (test code = 4.3 % 1.2-10.7 Platelet count 2258095181) measured by fluorescence method. NRBC/100 WBC (test See_Comment [Automat ed code = 0483063349) message] The system which generated this result transmitted reference range : 0.0 - 10.0 /100 WBCs. The refer ence range was not u sed to interpret th is result as normal/abnormal . NRBC x10^3 (test code See_Comment [Auto mated = 7507046114) message] The s ystem which generated this result transmitted reference range : 10*3/?L. The reference range was not used to interpret this result as normal/abnormal . GRAN MAT (NEUT) % 90.4 % (test code = 770-8) IMM GRAN % (test code 0.80 % = 0155482706) LYMPH % (test code = 3.5 % 736-9) MONO % (test code = 4.9 % 5905-5) EOS % (test code = 0.1 % 713-8) BASO % (test code = 0.3 % 706-2) GRAN MAT x10^3(ANC) 12.98 10*3/uL 1.99-6.95 H (test code = 2327850189) IMM GRAN x10^3 (test 0.12 10*3/uL 0.00-0.06 H code = 3180831438) LYMPH x10^3 (test 0.51 10*3/uL 1.09-3.23 L code = 731-0) MONO x10^3 (test code 0.71 10*3/uL 0.36-1.02 = 742-7) EOS x10^3 (test code <0.03 0.06-0.53 L = 711-2) BASO x10^3 (test code 0.04 10*3/uL 0.01-0.09 = 704-7) ELLIPTO/OVAL (test 2+ See_Comment A [Automat ed code = 91876-7) message] The system which generated this result transmitted reference range : (none). The reference range was not used to interpret this result as normal/abnormal . SCHISTOCYTES (test 2+ A code = 800-3) BANDS (test code = Increased A 4530787715) Lab Interpretation Abnormal (test code = 01752-9) [facility] 10:23:51 Test Item Value Reference Range Interpretation Comments MAGNESIUM (test code = 8026256211) 2.2 mg/dL 1.7-2.4 Lab Interpretation (test code = Normal 34540-5) [facility] METABOLIC PANEL (NA, K, CL, CO2, GLUCOSE, BUN, CREATININE, CA)2020-10-24 10:23:51 Test Item Value Reference Range Interpretation Comments NA (test code = 144 mmol/L 135-145 5656518697) K (test code = 3.7 mmol/L 3.5-5.0 9952717156) CL (test code = 114 mmol/L 98-108 H 1102112181) CO2 TOTAL (test code = 15 mmol/L 23-31 L 6156011854) AGAP (test code = 2-16 3017938080) BUN (test code = 63 mg/dL 7-23 H 6024525828) GLUCOSE (test code = 140 mg/dL 70-110 H 2387310976) CREATININE (test code = 1.76 mg/dL 0.60-1.25 H 5439752107) CALCIUM (test code = 9.3 mg/dL 8.6-10.6 1961678487) eGFR (test code = mL/min/1.73m2 2576017383) JUAN LUIS (test code = JUAN LUIS) [...] tests). Lab Interpretation Abnormal (test code = 73866-0) [facility] GLUCOSE (AUTOMATED)2020-10-24 01:03:00 Test Item Value Reference Range Interpretation Comments POCT GLU (test code = 1114278173) 117 mg/dL 70-110 H Lab Interpretation (test code = Abnormal 92847-7) [facility] GLUCOSE (AUTOMATED)2020-10-23 23:30:25 Test Item Value Reference Range Interpretation Comments POCT GLU (test code = 2038671532) 129 mg/dL 70-110 H Lab Interpretation (test code = Abnormal 57458-8) [facility] GLUCOSE (AUTOMATED)2020-10-23 18:08:09 Test Item Value Reference Range Interpretation Comments POCT GLU (test code = 5528278746) 125 mg/dL 70-110 H Lab Interpretation (test code = Abnormal 22272-5) [facility] Screen by Britney [id number] 17:04:24 Test Item Value Reference Range Interpretation Comments MSSA Screen by Britney MTZ (test code Negative Negative = 59666-8) MRSA/MSSA Positive? (test code = No No [id number]) Lab Interpretation (test code = Normal 09595-0) [facility] WITH [id number] 14:13:40 Test Item Value Reference Range Interpretation [...] (test code = 55.7 fL 38.5-51.6 H 58275-4) RDW-CV (test code = 21.0 % 12.1-15.4 H 788-0) PLT (test code = See_Comment L [Automated 777-3) message] The system which generated this result transmit tennille reference range : 150 - 328 10*3/ ?L. The reference range was not u sed to interpret th is result as normal/abnormal . MPV (test code = Not Measure d 36787-7) IPF % (test code = 6.0 % 1.2-10.7 Platelet count 9025111900) measured by fluorescence method. NRBC/100 WBC (test See_Comment [Automat ed code = 7123808625) message] The system which generated this result transmit tennille reference range : 0.0 - 10.0 /100 WBCs. The reference range was not used to interpret this result as normal/abnormal . NRBC x10^3 (test code <0.01 See_Comment [Auto mated = 8137919761) message] The system which generated this result transmit tennille reference range : 10*3/?L. The reference range was not used to interpret this result as normal/abnormal . GRAN MAT (NEUT) % 87.1 % (test code = 770-8) IMM GRAN % (test code 0.30 % = 2889344519) LYMPH % (test code = 5.7 % 736-9) MONO % (test code = 6.1 % 5905-5) EOS % (test code = 0.5 % 713-8) BASO % (test code = 0.3 % 706-2) GRAN MAT x10^3(ANC) 9.40 10*3/uL 1.99-6.95 H (test code = 2094748119) IMM GRAN x10^3 (test 0.03 10*3/uL 0.00-0.06 code = 9131343947) LYMPH x10^3 (test 0.61 10*3/uL 1.09-3.23 L [...] BANDS (test code = MARKED INCREASED A 1802952354) DOHLE BODIES (test Present A code = 7792-5) Lab Interpretation Abnormal (test code = 75734-0) [facility]2020-10-23 13:07:35 Test Item Value Reference Range Interpretation Comments POCT GLU (test code = 4951485198) 124 mg/dL 70-110 H Lab Interpretation (test code = Abnormal 46111-9) [facility]Prep[facility] Packed RBC (in units), 1 Units 2020-10-23 10:02:05 Test Item Value Reference Range Interpretation Comments Cross Match Result Compatible (test code = 4409) ISBT Blood Type Code (test code = 589858) Unit Blood Type (test A Pos code = 4410) Unit Number (test [id number] code = 4411) Blood Expiration Date & Time (test code = 533322) Status Information Issued (test code = 4412) Product Red Blood Cells Identification (test code = 4413) Product Code (test [id number] Performed at [facility] code = 4414) Laboratory Services - [facility] Blood [address] [address]W[place] Free: [phone] A No. [id number] [facility]MAG[facility]UM2021-[facility]-11 09:48:31 Test Item Value Reference Range Interpretation Comments MAGNESIUM (test code = 4502641913) 2.1 mg/dL 1.7-2.4 Lab Interpretation (test code = Normal 55974-9) [facility] WITH [id number] 09:36:10 Test Item Value Reference Range Interpretation [...] RDW-SD (test code = 50.4 fL 38.5-51.6 15789-4) RDW-CV (test code = 19.6 % 12.1-15.4 H 788-0) PLT (test code = See_Comment L [Automated 777-3) message] The system which generated this result transmit tennille reference range : 150 - 328 10*3/ ?L. The reference range was not u sed to interpret th is result as normal/abnormal . MPV (test code = 12.5 fL 9.8-13.0 28357-1) IPF % (test code = 5.6 % 1.2-10.7 Platelet count 5846414376) measured by fluorescence method. NRBC/100 WBC (test See_Comment [Automat ed code = 4610181345) message] The system which generated this result transmit tennille reference range : 0.0 - 10.0 /100 WBCs. The reference range was not used to interpret this result as normal/abnormal . NRBC x10^3 (test code <0.01 See_Comment [Auto mated = 7140104011) message] The system which generated this result transmit tennille reference range : 10*3/?L. The reference range was not used to interpret this result as normal/abnormal . GRAN MAT (NEUT) % 86.0 % (test code = 770-8) IMM GRAN % (test code 0.30 % = 7291084170) LYMPH % (test code = 7.3 % 736-9) MONO % (test code = 5.8 % 5905-5) EOS % (test code = 0.4 % 713-8) BASO % (test code = 0.2 % 706-2) GRAN MAT x10^3(ANC) 7.75 10*3/uL 1.99-6.95 H (test code = 4171551993) IMM GRAN x10^3 (test 0.03 10*3/uL 0.00-0.06 code = 2881925670) LYMPH x10^3 (test 0.66 10*3/uL 1.09-3.23 L [...] BANDS (test code = MARKED INCREASED A 9099233775) TOXIC CHANGES (test Present A code = 803-7) Lab Interpretation Abnormal (test code = 23074-8) [facility] METABOLIC PANEL (NA, K, CL, CO2, GLUCOSE, BUN, CREATININE, CA)2020-10-23 09:20:10 Test Item Value Reference Range Interpretation Comments NA (test code = 140 mmol/L 135-145 3551264212) K (test code = 3.7 mmol/L 3.5-5.0 6280156688) CL (test code = 111 mmol/L 98-108 H 1406996310) CO2 TOTAL (test code = 19 mmol/L 23-31 L 8077225921) AGAP (test code = 2-16 0203477465) BUN (test code = 72 mg/dL 7-23 H 4978593244) GLUCOSE (test code = 103 mg/dL 70-110 4495424215) CREATININE (test code = 1.88 mg/dL 0.60-1.25 H 8944069828) CALCIUM (test code = 9.2 mg/dL 8.6-10.6 1600700639) eGFR (test code = mL/min/1.73m2 5919731841) JUAN LUIS (test code = JUAN LUIS) [...] tests). Lab Interpretation Abnormal (test code = 00984-2) [facility]TR[facility]IN [id number] 23:41:10 Test Item Value Reference Range Interpretation Comments TROPONIN I (test 0.092 ng/mL See_Comment H [Automated code = 7013195889) message] The system which generated this result [...] ? Lab Interpretation Abnormal (test code = 69141-8) [facility] WITH [id number] 23:37:34 Test Item Value Reference Range Interpretation [...] RDW-SD (test code = 50.0 fL 38.5-51.6 65870-4) RDW-CV (test code = 19.5 % 12.1-15.4 H 788-0) PLT (test code = See_Comment L [Automated 777-3) message] The system which generated this result transmit tennille reference range : 150 - 328 10*3/ ?L. The reference range was not u sed to interpret th is result as normal/abnormal . MPV (test code = 12.9 fL 9.8-13.0 86541-4) IPF % (test code = 4.4 % 1.2-10.7 Platelet count 1031592864) measured by fluorescence method. NRBC/100 WBC (test See_Comment [Automat ed code = 4134417877) message] The system which generated this result transmit tennille reference range : 0.0 - 10.0 /100 WBCs. The reference range was not used to interpret this result as normal/abnormal . NRBC x10^3 (test code <0.01 See_Comment [Auto mated = 1197020547) message] The system which generated this result transmit tennille reference range : 10*3/?L. The reference range was not used to interpret this result as normal/abnormal . GRAN MAT (NEUT) % 85.1 % (test code = 770-8) IMM GRAN % (test code 0.40 % = 0915674295) LYMPH % (test code = 7.4 % 736-9) MONO % (test code = 6.9 % 5905-5) EOS % (test code = 0.1 % 713-8) BASO % (test code = 0.1 % 706-2) GRAN MAT x10^3(ANC) 8.19 10*3/uL 1.99-6.95 H (test code = 8202885112) IMM GRAN x10^3 (test 0.04 10*3/uL 0.00-0.06 code = 2497629121) LYMPH x10^3 (test 0.71 10*3/uL 1.09-3.23 L [...] BANDS (test code = MARKED INCREASED A 0269325444) Lab Interpretation Abnormal (test code = 41934-8) [facility]XR [facility]ST 1 [id number] 21:40:41 Endotracheal tube in good position. NG tube terminates in the left inferior chest possibly within ahiatalhernia. Correlate clinically. Multifocal infectious/inflammatory interstitial process. RL 4728 CHEST SINGLE VIEW CLINICAL HISTORY: Intubated ORDERING PHYSICIAN: ?VONDA STARKS TECHNIQUE: Frontal view of chest COMPARISON: [...] Correlate clin ically.Multifocal infectious/inflammatory interstitial process.[facility] [id number] 20:56:24 Test Item Value Reference Range Interpretation Comments FERRITIN (test code = 2110.0 ng/mL 18.0-464.0 H 7317183033) JUAN LUIS (test code = JUAN LUIS) Biotin has been reported to cause a negative bias, interpret results relative to patient's use of biotin. Lab Interpretation (test Abnormal code = 05480-7) [facility] [id number] 20:56:24 Test Item Value Reference Range Interpretation Comments FERRITIN (test code = 2110.0 ng/mL 18.0-464.0 H 3592081874) JUAN LUIS (test code = JUAN LUIS) Biotin has been reported to cause a negative bias, interpret results relative to patient's use of biotin. Lab Interpretation (test Abnormal code = 90362-0) [facility] [id number] 20:56:24 Test Item Value Reference Range Interpretation Comments FERRITIN (test code = 2110.0 ng/mL 18.0-464.0 H 4224060692) JUAN LUIS (test code = JUAN LUIS) Biotin has been reported to cause a negative bias, interpret results relative to patient's use of biotin. Lab Interpretation (test Abnormal code = 15416-4) [facility]GLY[facility]OSYL[facility]GLOBIN (A1C)2020-10-22 19:31:47 Test Item Value Reference Range Interpretation Comments HGB A1C (test code = 4548-4) 4.9 % 4.0-6.0 Lab Interpretation (test code = Normal 45834-6) [facility]GLY[facility]OS[facility] (A1C)2020-10-22 19:31:47 Test Item Value Reference Range Interpretation Comments HGB A1C (test code = 4548-4) 4.9 % 4.0-6.0 Lab Interpretation (test code = Normal 63233-1) [facility]GLY[facility]OS[facility]ATED [facility] (A1C)2020-10-22 19:31:47 Test Item Value Reference Range Interpretation Comments HGB A1C (test code = 4548-4) 4.9 % 4.0-6.0 Lab Interpretation (test code = Normal 62612-1) [facility] [id number] 19:18:54 Test Item Value Reference Range Interpretation Comments IRON (test code = <10 50-160 L 1605470832) TIBC (test code = 145 ug/dL 250-410 L 4095240686) % FE SAT (test code = Unable to calculate 1557963662) because, either iron serum, total ir on binding capacit y, or both are less t moser the sensitivity of the analyzer. Lab Interpretation (test Abnormal code = 25681-5) [facility] [id number] 19:18:54 Test Item Value Reference Range Interpretation Comments IRON (test code = <10 50-160 L 8058957398) TIBC (test code = 145 ug/dL 250-410 L 5156281376) % FE SAT (test code = Unable to calculate 3896454392) because, either iron serum, total ir on binding capacit y, or both are less t moser the sensitivity of the analyzer. Lab Interpretation (test Abnormal code = 97185-6) [facility] [id number] 19:18:54 Test Item Value Reference Range Interpretation Comments IRON (test code = <10 50-160 L 3199879665) TIBC (test code = 145 ug/dL 250-410 L 0230314110) % FE SAT (test code = Unable to calculate 5158749681) because, either iron serum, total ir on binding capacit y, or both are less t moser the sensitivity of the analyzer. Lab Interpretation (test Abnormal code = 99711-6) [facility] [id number] 19:11:37 Test Item Value Reference Range Interpretation Comments TROPONIN I (test 0.099 ng/mL See_Comment H [Automated code = 9298748507) message] The system which generated this result [...] ? Lab Interpretation Abnormal (test code = 32515-3) [facility] WITH [id number] 18:26:52 Test Item Value Reference Range Interpretation Comments WBC (test code = See_Comment [Automated 0790-2) message] The system which generated this result transmit tennille reference range : 4.20 - 10.70 10*3/?L. The reference range was not used to interpret this result as normal/abnormal . RBC (test code = See_Comment L [Automated 569-8) message] The system which generated this result [...] RDW-SD (test code = 51.3 fL 38.5-51.6 09850-4) RDW-CV (test code = 19.8 % 12.1-15.4 H 788-0) PLT (test code = See_Comment L [Automated 777-3) message] The system which generated this result transmit tennille reference range : 150 - 328 10*3/ ?L. The reference range was not u sed to interpret th is result as normal/abnormal . MPV (test code = 13.2 fL 9.8-13.0 H 42220-4) IPF % (test code = 4.8 % 1.2-10.7 Platelet count 3673640479) measured by fluorescence method. NRBC/100 WBC (test See_Comment [Automat ed code = 3019779665) message] The system which generated this result transmit tennille reference range : 0.0 - 10.0 /100 WBCs. The reference range was not used to interpret this result as normal/abnormal . NRBC x10^3 (test code <0.01 See_Comment [Auto mated = 0366700958) message] The system which generated this result transmit tennille reference range : 10*3/?L. The reference range was not used to interpret this result as normal/abnormal . GRAN MAT (NEUT) % 85.7 % (test code = 770-8) IMM GRAN % (test code 0.20 % = 6197134181) LYMPH % (test code = 6.1 % 736-9) MONO % (test code = 7.9 % 5905-5) EOS % (test code = 0.0 % 713-8) BASO % (test code = 0.1 % 706-2) GRAN MAT x10^3(ANC) 7.24 10*3/uL 1.99-6.95 H (test code = 6823595312) IMM GRAN x10^3 (test <0.03 0.00-0.06 code = 2237328358) LYMPH x10^3 (test 0.52 10*3/uL 1.09-3.23 L [...] 2+ See_Comment A [Automat ed code = 82799-7) message] The system which generated this result transmit tennille reference range : (none). The reference range was not used to interpret this result as normal/abnormal . SCHISTOCYTES (test 2+ A code = 800-3) BANDS (test code = MARKED INCREASED A 4417419658) Lab Interpretation Abnormal (test code = 88027-3) [facility] HospitalType and Screen - ONCE [id number] 18:18:46 Test Item Value Reference Range Interpretation Comments ABO & RH (test code A POSITIVE Performe d at [facility] = 20) Laboratory Serv [facility] Blood [facility]3 [facility] s [address]Ddek Free: [phone] A No. [id number] IAT (test code = Negative Performed a t [facility] 1185) Laboratory Serv [facility] Blood [facility]3 [address] [facility] s [address]Zdfr Free: [phone] A No. [id number] [facility]URINALYSIS2021-04-10 18:13:46 Test Item Value Reference Range Interpretation Comments APPEARANCE (test code = Cloudy Clear A 5041926328) COLOR (test code = Yellow Yellow 4830432829) PH (test code = 4.8-8.0 3391175937) SP GRAVITY (test code = 1.003-1.030 3363637453) GLU U QUAL (test code = Normal Normal 7552938053) BLOOD (test code = 2+ Negative A 7543326731) KETONES (test code = Negative Negative 4496287649) PROTEIN (test code = 100 mg/dL Negative A 2887-8) UROBILIN (test code = Normal Normal 6416932896) BILIRUBIN (test code = Negative Negative 0554289163) NITRITE (test code = Negative Negative 4705363647) LEUK SILVIO (test code = 500/uL Negative A 7137099768) RBC/HPF (test code = See_Comment H [Autom ated message] 9119274815) The system [employer] generated this result transmit tennille reference range : 0 - 3 HPF. The refe rence range was not u sed to interpret th is result as normal/abnormal . WBC/HPF (test code = >182 See_Comment H [Autom ated message] 9395727993) The system [employer] generated this result transmit tennille reference range : 0 - 5 HPF. The refe rence range was not u sed to interpret th is result as normal/abnormal . BACTERIA (test code = Few Negative A 9164176867) MUCOUS (test code = Slight Negative LPF A 3789315522) SQ EPITH (test code = See_Comment [Auto mated message] 0934066226) The system [employer] generated this result transmit tennille reference range : <=2 HPF. The refere nce range was not u sed to interpret th is result as normal/abnormal . WBC CLUMPS (test code = See_Comment H [Au tomated message] 9827000925) The system [employer] generated this result transmit tennille reference range : <=1 HPF. The refere nce range was not u sed to interpret th is result as normal/abnormal . HYAL CAST (test code = See_Comment H [Aut omated message] 2860192769) The system [employer] generated this result transmit tennille reference range : <=2 LPF. The refere nce range was not u sed to interpret th is result as normal/abnormal . Lab Interpretation (test Abnormal code = 41689-2) [facility] 18:13:46 Test Item Value Reference Range Interpretation Comments APPEARANCE (test code = Cloudy Clear A 5701055242) COLOR (test code = Yellow Yellow 6207900736) PH (test code = 4.8-8.0 5100183134) SP GRAVITY (test code = 1.003-1.030 2377726608) GLU U QUAL (test code = Normal Normal 9284167759) BLOOD (test code = 2+ Negative A 5144781879) KETONES (test code = Negative Negative 9696935511) PROTEIN (test code = 100 mg/dL Negative A 2887-8) UROBILIN (test code = Normal Normal 6001485664) BILIRUBIN (test code = Negative Negative 2515090257) NITRITE (test code = Negative Negative 9081691483) LEUK SILVIO (test code = 500/uL Negative A 8886875610) RBC/HPF (test code = See_Comment H [Autom ated message] 7757385634) The system [employer] generated this result transmit tennille reference range : 0 - 3 HPF. The refe rence range was not u sed to interpret th is result as normal/abnormal . WBC/HPF (test code = >182 See_Comment H [Autom ated message] 3707718289) The system [employer] generated this result transmit tennille reference range : 0 - 5 HPF. The refe rence range was not u sed to interpret th is result as normal/abnormal . BACTERIA (test code = Few Negative A 9274908079) MUCOUS (test code = Slight Negative LPF A 2709373818) SQ EPITH (test code = See_Comment [Auto mated message] 1809809525) The system [employer] generated this result transmit tennille reference range : <=2 HPF. The refere nce range was not u sed to interpret th is result as normal/abnormal . WBC CLUMPS (test code = See_Comment H [Au tomated message] 9866267503) The system [employer] generated this result transmit tennille reference range : <=1 HPF. The refere nce range was not u sed to interpret th is result as normal/abnormal . HYAL CAST (test code = See_Comment H [Aut omated message] 8971011235) The system [employer] generated this result transmit tennille reference range : <=2 LPF. The refere nce range was not u sed to interpret th is result as normal/abnormal . Lab Interpretation (test Abnormal code = 54904-3) [facility] 18:13:46 Test Item Value Reference Range Interpretation Comments APPEARANCE (test code = Cloudy Clear A 4523429034) COLOR (test code = Yellow Yellow 3719757602) PH (test code = 4.8-8.0 5297463172) SP GRAVITY (test code = 1.003-1.030 6036306434) GLU U QUAL (test code = Normal Normal 2741092642) BLOOD (test code = 2+ Negative A 0362772164) KETONES (test code = Negative Negative 8579588266) PROTEIN (test code = 100 mg/dL Negative A 2887-8) UROBILIN (test code = Normal Normal 8062268435) BILIRUBIN (test code = Negative Negative 2091996869) NITRITE (test code = Negative Negative 6166144490) LEUK SILVIO (test code = 500/uL Negative A 9157973317) RBC/HPF (test code = See_Comment H [Autom ated message] 2376610997) The system [employer] generated this result transmit tennille reference range : 0 - 3 HPF. The refe rence range was not u sed to interpret th is result as normal/abnormal . WBC/HPF (test code = >182 See_Comment H [Autom ated message] 6473407990) The system [employer] generated this result transmit tennille reference range : 0 - 5 HPF. The refe rence range was not u sed to interpret th is result as normal/abnormal . BACTERIA (test code = Few Negative A 5909687361) MUCOUS (test code = Slight Negative LPF A 0181073119) SQ EPITH (test code = See_Comment [Auto mated message] 1402852414) The system [employer] generated this result transmit tennille reference range : <=2 HPF. The refere nce range was not u sed to interpret th is result as normal/abnormal . WBC CLUMPS (test code = See_Comment H [Au tomated message] 0111145626) The system [employer] generated this result transmit tennille reference range : <=1 HPF. The refere nce range was not u sed to interpret th is result as normal/abnormal . HYAL CAST (test code = See_Comment H [Aut omated message] 1700276005) The system [employer] generated this result transmit tennille reference range : <=2 LPF. The refere nce range was not u sed to interpret th is result as normal/abnormal . Lab Interpretation (test Abnormal code = 58506-6) [facility]HEP[facility] (64342) (ALB,T.PRO,BILI T,BU/BC,ALT,AST,ALK PHOS)2020-10-22 18:07:08 Test Item Value Reference Range Interpretation Comments TOTAL BILI (test code = 8416618905) 0.5 mg/dL 0.1-1.1 BILI UNCON (test code = 4098848325) 0.3 mg/dL 0.1-1.1 BILI CONJ (test code = 1952315245) 0.0 mg/dL 0.0-0.3 T PROTEIN (test code = 1466006630) 5.9 g/dL 6.3-8.2 L ALBUMIN (test code = 0852695717) 3.0 g/dL 3.5-5.0 L ALK PHOS (test code = 5142197256) 60 U/L 34-122 ALTv (test code = 1742-6) 35 U/L 5-50 AST(SGOT) (test code = 7789201086) 48 U/L 13-40 H Lab Interpretation (test code = Abnormal 94999-1) [facility]HEP[facility] (06623) (ALB,T.PRO,BILI T,BU/BC,ALT,AST,ALK PHOS)2020-10-22 18:07:08 Test Item Value Reference Range Interpretation Comments TOTAL BILI (test code = 2780949499) 0.5 mg/dL 0.1-1.1 BILI UNCON (test code = 3398465786) 0.3 mg/dL 0.1-1.1 BILI CONJ (test code = 4646309804) 0.0 mg/dL 0.0-0.3 T PROTEIN (test code = 8584314725) 5.9 g/dL 6.3-8.2 L ALBUMIN (test code = 5096647452) 3.0 g/dL 3.5-5.0 L ALK PHOS (test code = 6052195414) 60 U/L 34-122 ALTv (test code = 1742-6) 35 U/L 5-50 AST(SGOT) (test code = 2877572198) 48 U/L 13-40 H Lab Interpretation (test code = Abnormal 12423-6) [facility] METABOLIC PANEL (NA, K, CL, CO2, GLUCOSE, BUN, CREATININE, CA)2020-10-22 18:07:08 Test Item Value Reference Range Interpretation Comments NA (test code = 137 mmol/L 135-145 6132763912) K (test code = 4.2 mmol/L 3.5-5.0 8642869064) CL (test code = 104 mmol/L 98-108 0089573023) CO2 TOTAL (test code = 23 mmol/L 23-31 6343495194) AGAP (test code = 2-16 1774735087) BUN (test code = 82 mg/dL 7-23 H 2304121402) GLUCOSE (test code = 84 mg/dL 70-110 7808400714) CREATININE (test code = 1.88 mg/dL 0.60-1.25 H 3327674939) CALCIUM (test code = 9.9 mg/dL 8.6-10.6 0662035872) eGFR (test code = mL/min/1.73m2 7762815018) JUAN LUIS (test code = JUAN LUIS) [...] tests). Lab Interpretation Abnormal (test code = 72949-7) [facility] (35431[facility] (ALB,T.PRO,BILI T,BU/BC,ALT,AST,ALK PHOS)2020-10-22 18:07:08 Test Item Value Reference Range Interpretation Comments TOTAL BILI (test code = 9154757787) 0.5 mg/dL 0.1-1.1 BILI UNCON (test code = 6353442037) 0.3 mg/dL 0.1-1.1 BILI CONJ (test code = 2724933227) 0.0 mg/dL 0.0-0.3 T PROTEIN (test code = 0750917927) 5.9 g/dL 6.3-8.2 L ALBUMIN (test code = 3670700980) 3.0 g/dL 3.5-5.0 L ALK PHOS (test code = 3249788945) 60 U/L 34-122 ALTv (test code = 1742-6) 35 U/L 5-50 AST(SGOT) (test code = 4414492067) 48 U/L 13-40 H Lab Interpretation (test code = Abnormal 77145-8) [facility]IB[facility]EN2021-[facility]-10 17:54:11 Test Item Value Reference Range Interpretation Comments Fibrinogen (test code = 9691092845) 585 mg/dL 167-453 H Lab Interpretation (test code = Abnormal 27541-8) [facility] HospitalPROTHROMBIN TIME / [id number] 17:54:11 Test Item Value Reference Range Interpretation [...] tions. Lab Interpretation (test Abnormal code = 31232-2) [facility] 20 + LACTIC [id number] 17:44:46 Test Item Value Reference Range Interpretation Comments PH (test code = 2) 7.35-7.45 H PCO2 (test code = See_Comment L [Automat ed 8542641978) message] The sy stem which generated this result transmitted reference range : 35 - 45 mmHg. The reference range was not used to interpret this result as normal/abnormal . PO2 (test code = See_Comment H [Automated 0756462512) message] The sy stem which generated this result transmitted reference range : 80 - 100 mmHg. The reference range was not used to interpret this result as normal/abnormal . HCO3 (test code = See_Comment L [Automate d 5833871749) message] The sy stem which generated this result transmitted reference range : 22 - 26 mEq/L. The reference range was not used to interpret this result as normal/abnormal . BE (test code = See_Comment [Automated 7235644901) message] The sy stem which generated this result transmitted reference range : -3.0 - 3.0 mEq/ L. The reference r christine was not used to interpret this result as normal/abnormal . THB (test code = 10.9 g/dL 13.5-18.0 L 5669553165) %O2HB (test code = 97.7 % 94.0-99.0 6247705810) %COHB ART (test code = 0.3 % 0.0-1.5 6183361964) %METHB ART (test code = 0.3 % 0.4-1.5 L 0096920949) VOL%O2 ART (test code = 15.1 % 15.0-23.0 1779486834) NA (test code = 134 mmol/L 135-145 L 2858339056) K+ (test code = 4.2 mmol/L 3.5-5.0 8399606314) AC CA IONZ (test code = 5.10 mg/dL 4.50-5.30 6113518321) GLUCOSE (test code = 84 mg/dL 70-110 6071030045) LACTIC ACID (test code 1.39 mmol/L 0.50-2.20 = 8795074899) Lab Interpretation Abnormal (test code = 69425-2) [facility] Type and Screen expires at midnight on the 3rd day after it was drawn. A current Type and Screen is required when RBCs are requested. For all other blood products, a Type and Screen performed during the current hospitalization i...2020-05-03 21:04:13 Test Item Value Reference Range Interpretation Comments ABO & RH (test code A Positive Performe d at [facility] = 20) Laboratory [facility] [place], [place] [address]Toll Free: [phone] A No. [id number] IAT (test code = Negative Performed a t [facility] 1185) Laboratory [facility] [place] [phone] Free: [phone] A No. [id number] [facility] HospitalTroponin [id number] 20:34:00 Test Item Value Reference Range Interpretation Comments TROPONIN I (test 0.034 ng/mL See_Comment [Automated code = 8631480637) message] The system which generated this result [...] ? Lab Interpretation Normal (test code = 03273-6) [facility] [id number] 20:31:00 Test Item Value Reference Range Interpretation Comments NT-proBNP (test code 5460 pg/mL See_Comment H [Autom ated = 7222488698) message] The system which generated this result transmitted reference range : <=125. The reference range was not used to interpret this result as normal/abnormal . JUAN LUIS (test code = JUAN LUIS) Biotin has been reported to cause a negative bias, interpret results relative to patient's use of biotin. Lab Interpretation Abnormal (test code = 54024-7) [facility] (NA, K, CL, CO2, GLUCOSE, BUN, CREATININE, CA)2020-05-03 20:22:00 Test Item Value Reference Range Interpretation Comments NA (test code = 137 mmol/L 135-145 9997697924) K (test code = 4.2 mmol/L 3.5-5 8032053339) CL (test code = 100 mmol/L 98-108 0586835032) CO2 TOTAL (test code = 28 mmol/L 23-31 9275887550) AGAP (test code = 2-16 1943446367) BUN (test code = 55 mg/dL 7-23 H 9051536603) GLUCOSE (test code = 141 mg/dL 70-110 H 7594395502) CREATININE (test code = 1.76 mg/dL 0.6-1.25 H 9767323557) CALCIUM (test code = 9.4 mg/dL 8.6-10.6 6868830184) eGFR Calculation mL/min/1.73m2 (Non-) (test code = 3977372510) eGFR Calculation mL/min/1.73m2 () (test code = 0431408334) JUAN LUIS (test code = JUAN LUIS) [...] tests). Lab Interpretation Abnormal (test code = 56418-8) [facility] (ALB, T.PRO, BILI T, BU/BC, ALT, AST, ALK PHOS)2020-05-03 20:22:00 Test Item Value Reference Range Interpretation Comments TOTAL BILI (test code = 3179050501) 0.5 mg/dL 0.1-1.1 BILI UNCON (test code = 4739207855) 0.5 mg/dL 0.1-1.1 BILI CONJ (test code = 3645078234) 0.0 mg/dL 0-0.3 T PROTEIN (test code = 2508269142) 6.5 g/dL 6.3-8.2 ALBUMIN (test code = 6081431606) 3.6 g/dL 3.5-5 ALK PHOS (test code = 6052164410) 62 U/L 34-122 ALTv (test code = 1742-6) 49 U/L 5-50 AST(SGOT) (test code = 3232839369) 50 U/L 13-40 H Lab Interpretation (test code = Abnormal 32525-4) [facility] with [id number] 20:12:00 Test Item Value Reference Range Interpretation [...] (test code = 35.9 fL 38.5-51.6 L 95932-0) RDW-CV (test code = 15.5 % 12.1-15.4 H 788-0) PLT (test code = See_Comment [Automated 777-3) message] The sy stem which generated this result transmitted reference range : 150 - 328 10*3/ ?L. The reference r christine was not used to interpret this result as normal/abnormal . MPV (test code = 12.7 fL 9.8-13 86521-2) IPF % (test code = 3.0 % 1.2-10.7 Platelet count 1137249250) measured by fluorescence method. NRBC/100 WBC (test See_Comment [Automat ed code = 4508376750) message] The system which generated this result transmitted reference range : 0.0 - 10.0 /100 WBCs. The refer ence range was not u sed to interpret th is result as normal/abnormal . NRBC x10^3 (test code <0.01 See_Comment [Auto mated = 7450416455) message] The s ystem which generated this result transmitted reference range : 10*3/?L. The reference range was not used to interpret this result as normal/abnormal . GRAN MAT (NEUT) % 65.3 % (test code = 770-8) IMM GRAN % (test code 0.30 % = 1151041718) LYMPH % (test code = 19.0 % 736-9) MONO % (test code = 8.6 % 5905-5) EOS % (test code = 6.2 % 713-8) BASO % (test code = 0.6 % 706-2) GRAN MAT x10^3(ANC) 5.10 10*3/uL 1.99-6.95 (test code = 3633064693) IMM GRAN x10^3 (test <0.03 0-0.06 code = 4105140411) LYMPH x10^3 (test code 1.48 10*3/uL 1.09-3.23 = 731-0) MONO x10^3 (test code 0.67 10*3/uL 0.36-1.02 = 742-7) EOS x10^3 (test code = 0.48 10*3/uL 0.06-0.53 711-2) BASO x10^3 (test code 0.05 10*3/uL 0.01-0.09 = 704-7) Lab Interpretation Abnormal (test code = 43704-2) [facility] GLUCOSE (AUTOMATED)2019-10-28 13:00:00 Test Item Value Reference Range Interpretation Comments POCT GLU (test code = 9020240957) 89 mg/dL 70-110 Lab Interpretation (test code = Normal 97698-2) [facility] GLUCOSE (AUTOMATED)2019-10-28 10:36:00 Test Item Value Reference Range Interpretation Comments POCT GLU (test code = 3013866671) 223 mg/dL 70-110 H Lab Interpretation (test code = Abnormal 69002-9) [facility] [id number] 10:09:00 Test Item Value Reference Range Interpretation Comments NT-proBNP (test code 37646 pg/mL See_Comment H [Autom ated = 2124908633) message] The system which generated this result transmitted reference range : <=125. The reference range was not used to interpret this result as normal/abnormal . JUAN LUIS (test code = JUAN LUIS) Biotin has been reported to cause a negative bias, interpret results relative to patient's use of biotin. Lab Interpretation Abnormal (test code = 88641-8) [facility]COMP[facility] MET[facility]OLIC PANEL ([id number])2019-10-28 10:06:00 Test Item Value Reference Range Interpretation Comments NA (test code = 136 mmol/L 135-145 2173136860) K (test code = 5.0 mmol/L 3.5-5 2496924104) CL (test code = 107 mmol/L 98-108 6183309769) CO2 TOTAL (test code = 27 mmol/L 23-31 1600765670) AGAP (test code = 2-16 3949897912) BUN (test code = 50 mg/dL 7-23 H 7488139813) GLUCOSE (test code = 82 mg/dL 70-110 2913001139) CREATININE (test code = 1.76 mg/dL 0.6-1.25 H 9745124215) TOTAL BILI (test code = 0.3 mg/dL 0.1-1.2 3723360755) CALCIUM (test code = 8.9 mg/dL 8.6-10.6 9956286833) T PROTEIN (test code = 5.8 g/dL 6.3-8.2 L 9443072862) ALBUMIN (test code = 3.0 g/dL 3.5-5 L 8638156325) ALK PHOS (test code = 56 U/L 34-122 5552690578) ALTv (test code = 25 U/L 5-50 1742-6) AST(SGOT) (test code = 32 U/L 13-40 7319874792) eGFR Calculation mL/min/1.73m2 (Non-) (test code = 2500090728) eGFR Calculation mL/min/1.73m2 () (test code = 4721788084) JUAN LUIS (test code = JUAN LUIS) [...] tests). Lab Interpretation Abnormal (test code = 69212-7) [facility]UR[facility] [id number] 10:06:00 Test Item Value Reference Range Interpretation Comments URIC ACID (test code = 0696094560) 6.2 mg/dL 3.6-8 Lab Interpretation (test code = Normal 93469-7) [facility] WITH [id number] 09:42:00 Test Item Value Reference Range Interpretation Comments WBC (test code = See_Comment [Automated 4490-2) message] The sy stem which generated this result transmitted reference range : 4.20 - 10.70 10*3/?L. The reference range was not used to interpret this result as normal/abnormal . RBC (test code = See_Comment L [Automated 029-8) message] The sy stem which generated this [...] RDW-SD (test code = 47.8 fL 38.5-51.6 05638-8) RDW-CV (test code = 18.8 % 12.1-15.4 H 788-0) PLT (test code = See_Comment [Automated 777-3) message] The sy stem which generated this result transmitted reference range : 150 - 328 10*3/ ?L. The reference r christine was not used to interpret this result as normal/abnormal . MPV (test code = 11.6 fL 9.8-13 15874-2) IPF % (test code = 2.4 % 1.2-10.7 Platelet count 8903368415) measured by fluorescence method. NRBC/100 WBC (test See_Comment [Automat ed code = 2727204074) message] The system which generated this result transmitted reference range : 0.0 - 10.0 /100 WBCs. The refer ence range was not u sed to interpret th is result as normal/abnormal . NRBC x10^3 (test code <0.01 See_Comment [Auto mated = 9975241514) message] The s ystem which generated this result transmitted reference range : 10*3/?L. The reference range was not used to interpret this result as normal/abnormal . GRAN MAT (NEUT) % 55.9 % (test code = 770-8) IMM GRAN % (test code 0.30 % = 0162313473) LYMPH % (test code = 28.2 % 736-9) MONO % (test code = 9.1 % 5905-5) EOS % (test code = 5.3 % 713-8) BASO % (test code = 1.2 % 706-2) GRAN MAT x10^3(ANC) 3.88 10*3/uL 1.99-6.95 (test code = 9587851626) IMM GRAN x10^3 (test <0.03 0-0.06 code = 6070142474) LYMPH x10^3 (test code 1.96 10*3/uL 1.09-3.23 = 731-0) MONO x10^3 (test code 0.63 10*3/uL 0.36-1.02 = 742-7) EOS x10^3 (test code = 0.37 10*3/uL 0.06-0.53 711-2) BASO x10^3 (test code 0.08 10*3/uL 0.01-0.09 = 704-7) Lab Interpretation Abnormal (test code = 07983-4) [facility] GLUCOSE (AUTOMATED)2019-10-28 01:57:00 Test Item Value Reference Range Interpretation Comments POCT GLU (test code = 4832675297) 112 mg/dL 70-110 H Lab Interpretation (test code = Abnormal 61849-4) [facility] GLUCOSE (AUTOMATED)2019-10-27 16:31:00 Test Item Value Reference Range Interpretation Comments POCT GLU (test code = 0908465492) 142 mg/dL 70-110 H Lab Interpretation (test code = Abnormal 94703-8) [facility] GLUCOSE (AUTOMATED)2019-10-27 16:31:00 Test Item Value Reference Range Interpretation Comments POCT GLU (test code = 8204401950) 138 mg/dL 70-110 H Lab Interpretation (test code = Abnormal 94139-3) [facility]PROFILE / [id number] 16:06:00 Test Item Value Reference Range Interpretation Comments WBC (test code = See_Comment [Automated message] 6690-2) The system [employer] generated this result transmitted ref erence range: 4.20 - 1 0.70 10*3/?L. The reference range was not used to int erpret this result as normal/abnormal . RBC (test code = 789-8) See_Comment L [Au tomated message] The system [employer] generated this result transmitted ref erence range: [...] 777-3) See_Comment [Au tomated message] The system [facility] generated this result transmitted ref erence range: 150 - 32 8 10*3/?L. The reference range was not used to int erpret this result as normal/abnormal . MPV (test code = 11.4 fL 9.8-13 99930-6) RDW-CV (test code = 19.0 % 12.1-15.4 H 788-0) RDW-SD (test code = 48.5 fL 38.5-51.6 37647-9) NRBC x10^3 (test code = <0.01 See_Comment [Au tomated message] 0439832045) The system [facility] generated this result transmitted ref erence range: 10*3/?L. The reference range was not used to int erpret this result as normal/abnormal . NRBC/100 WBC (test code See_Comment [Au tomated message] = 6891250913) The system [facility] generated this result transmitted ref erence range: 0.0 - 10 .0 /100 WBCs. The reference range was not used to int erpret this result as normal/abnormal . IPF % (test code = 2.5 % 1.2-10.7 Platelet count 4835008777) measured by fluorescence me thod. Lab Interpretation Abnormal (test code = 54879-2) [facility] HospitalBRADY [id number] 15:51:00 Test Item Value Reference Range Interpretation Comments TROPONIN I (test 0.043 ng/mL See_Comment H [Automated code = 6876887992) message] The system which generated this result [...] ? Lab Interpretation Abnormal (test code = 59923-1) [facility] HospitalUREA NITROGEN, URINE [id number] 15:40:00 Test Item Value Reference Range Interpretation Comments UREA N UR (test code = 7562766346) 531 mg/dL [facility]POCT [facility] ([facility])2019-10-27 12:43:00 Test Item Value Reference Range Interpretation Comments POCT GLU (test code = 0122589161) 140 mg/dL 70-110 H Lab Interpretation (test code = Abnormal 80714-9) [facility] HospitalPROTEIN CREAT RATIO URINE [id number] 11:43:00 Test Item Value Reference Range Interpretation Comments T. PROT U (test code = 2888-6) 584 mg/dL CREAT U (test code = 2281392838) 28.0 mg/dL Protein/Creatinine Ratio Urine 0.0-2.0 H (test code = 9797225455) Lab Interpretation (test code = Abnormal 52672-6) [facility]URINALYSIS2020-04-14 11:12:00 Test Item Value Reference Range Interpretation Comments APPEARANCE (test code = Clear Clear 9379143054) COLOR (test code = Yellow Yellow 4266037106) PH (test code = 4.8-8.0 3830015161) SP GRAVITY (test code = 1.003-1.030 4597061399) GLU U QUAL (test code = 50 mg/dL Normal A 0399287380) BLOOD (test code = Negative Negative 9555500686) KETONES (test code = Negative Negative 7971345275) PROTEIN (test code = 100 mg/dL Negative A 2887-8) UROBILIN (test code = Normal Normal 7599079995) BILIRUBIN (test code = Negative Negative 9079192762) NITRITE (test code = Negative Negative 9989378432) LEUK SILVIO (test code = Negative Negative 7957596738) RBC/HPF (test code = See_Comment H [Autom ated message] 6495662602) The system [employer] generated this result transmit tennille reference range : 0 - 3 HPF. The refe rence range was not u sed to interpret th is result as normal/abnormal . WBC/HPF (test code = See_Comment [Autom ated message] 7406017614) The system [employer] generated this result transmit tennille reference range : 0 - 5 HPF. The refe rence range was not u sed to interpret th is result as normal/abnormal . BACTERIA (test code = Few Negative A 5871890486) MUCOUS (test code = Slight Negative LPF A 4824992201) SQ EPITH (test code = <1 HPF 8257821406) HYAL CAST (test code = See_Comment H [Aut omated message] 0468085115) The system [employer] generated this result transmit tennille reference range : <=2 LPF. The refere nce range was not u sed to interpret th is result as normal/abnormal . Lab Interpretation (test Abnormal code = 00831-0) [facility] [id number] 11:07:00 Test Item Value Reference Range Interpretation Comments NA URINE (test code = 3152851176) 45 mmol/L [facility] GLUCOSE (AUTOMATED)2019-10-27 10:49:00 Test Item Value Reference Range Interpretation Comments POCT GLU (test code = 2314390130) 163 mg/dL 70-110 H Lab Interpretation (test code = Abnormal 64031-8) [facility] HospitalTROPONIN [id number] 10:10:00 Test Item Value Reference Range Interpretation Comments TROPONIN I (test 0.035 ng/mL See_Comment H [Automated code = 8838560348) message] The system which generated this result [...] ? Lab Interpretation Abnormal (test code = 86256-2) [facility] HospitalN-[facility]MINAL [id number] 10:07:00 Test Item Value Reference Range Interpretation Comments NT-proBNP (test code 8960 pg/mL See_Comment H [Autom ated = 7010176622) message] The system which generated this result transmitted reference range : <=125. The reference range was not used to interpret this result as normal/abnormal . JUAN LUIS (test code = JUAN LUIS) Biotin has been reported to cause a negative bias, interpret results relative to patient's use of biotin. Lab Interpretation Abnormal (test code = 81533-2) [facility]COMP[facility] MET[facility]OLIC PANEL (95235)2019-10-27 10:03:00 Test Item Value Reference Range Interpretation Comments NA (test code = 136 mmol/L 135-145 0920983615) K (test code = 5.2 mmol/L 3.5-5 H 4380019903) CL (test code = 106 mmol/L 98-108 0991144545) CO2 TOTAL (test code = 25 mmol/L 23-31 5532755233) AGAP (test code = 2-16 7729368110) BUN (test code = 54 mg/dL 7-23 H 5703583338) GLUCOSE (test code = 139 mg/dL 70-110 H 9389483338) CREATININE (test code = 1.42 mg/dL 0.6-1.25 H 2429692739) TOTAL BILI (test code = 0.2 mg/dL 0.1-1.6 7350307530) CALCIUM (test code = 8.7 mg/dL 8.6-10.6 0495925833) T PROTEIN (test code = 5.8 g/dL 6.3-8.2 L 7930666170) ALBUMIN (test code = 2.9 g/dL 3.5-5 L 7578075801) ALK PHOS (test code = 53 U/L 34-122 0649610943) ALTv (test code = 21 U/L 5-50 1742-6) AST(SGOT) (test code = 30 U/L 13-40 1772598353) eGFR Calculation mL/min/1.73m2 (Non-) (test code = 0535373041) eGFR Calculation mL/min/1.73m2 () (test code = 8873657527) JUAN LUIS (test code = JUAN LUIS) [...] tests). Lab Interpretation Abnormal (test code = 55759-7) [facility] HospitalMAGNESIUM2020-04-14 10:01:00 Test Item Value Reference Range Interpretation Comments MAGNESIUM (test code = 3174565332) 2.5 mg/dL 1.7-2.4 H Lab Interpretation (test code = Abnormal 45706-0) [facility]URIC [id number] 10:00:00 Test Item Value Reference Range Interpretation Comments URIC ACID (test code = 5691356488) 5.7 mg/dL 3.6-8 Lab Interpretation (test code = Normal 45376-3) [facility] HospitalSEDIMENTATION [id number] 09:58:00 Test Item Value Reference Range Interpretation Comments ESR (test code = See_Comment H [Automated message] 2842701796) The system [employer] generated this result transmitted ref erence range: 0 - 10 m m/HR. The reference r christine was not used to interpret this result as normal/abnor mal. Lab Interpretation (test Abnormal code = 68348-5) [facility] HospitalFERRITIN [id number] 09:45:00 Test Item Value Reference Range Interpretation Comments FERRITIN (test code = 829.0 ng/mL 18-464 H 7786127110) JUAN LUIS (test code = JUAN LUIS) Biotin has been reported to cause a negative bias, interpret results relative to patient's use of biotin. Lab Interpretation (test Abnormal code = 86627-5) [facility] HospitalCB WITH [id number] 09:31:00 Test Item Value Reference Range Interpretation [...] RDW-SD (test code = 46.8 fL 38.5-51.6 41900-2) RDW-CV (test code = 19.1 % 12.1-15.4 H 788-0) PLT (test code = See_Comment [Automated 777-3) message] The sy stem which generated this result transmitted reference range : 150 - 328 10*3/ ?L. The reference r christine was not used to interpret this result as normal/abnormal . MPV (test code = 10.9 fL 9.8-13 95065-4) NRBC/100 WBC (test See_Comment [Automat ed code = 1981090547) message] The system which generated this result transmitted reference range : 0.0 - 10.0 /100 WBCs. The refer ence range was not u sed to interpret th is result as normal/abnormal . NRBC x10^3 (test code <0.01 See_Comment [Auto mated = 3363235087) message] The s ystem which generated this result transmitted reference range : 10*3/?L. The reference range was not used to interpret this result as normal/abnormal . GRAN MAT (NEUT) % 79.8 % (test code = 770-8) IMM GRAN % (test code 0.20 % = 9485842939) LYMPH % (test code = 11.9 % 736-9) MONO % (test code = 7.0 % 5905-5) EOS % (test code = 0.6 % 713-8) BASO % (test code = 0.5 % 706-2) GRAN MAT x10^3(ANC) 7.01 10*3/uL 1.99-6.95 H (test code = 2150579485) IMM GRAN x10^3 (test <0.03 0-0.06 code = 9150033245) LYMPH x10^3 (test code 1.04 10*3/uL 1.09-3.23 L = 731-0) MONO x10^3 (test code 0.61 10*3/uL 0.36-1.02 = 742-7) EOS x10^3 (test code = 0.05 10*3/uL 0.06-0.53 L 711-2) BASO x10^3 (test code 0.04 10*3/uL 0.01-0.09 = 704-7) Lab Interpretation Abnormal (test code = 78810-3) [facility] [id number] 09:24:00 Test Item Value Reference Range Interpretation Comments IRON (test code = 6581752876) 46 ug/dL 50-160 L TIBC (test code = 3837656095) 256 ug/dL 250-410 % FE SAT (test code = 3087533535) 18 % 20-50 L Lab Interpretation (test code = Abnormal 37999-4) [facility] [id number] 09:22:00 Test Item Value Reference Range Interpretation Comments TROPONIN I (test 0.040 ng/mL See_Comment H [Automated code = 9590409559) message] The system which generated this result [...] ? Lab Interpretation Abnormal (test code = 81265-6) [facility] HospitalGLYCOSYLATED HEMOGLOBIN (A1C)2019-10-27 09:18:00 Test Item Value [...] Indicated Lab Interpretation Normal (test code = 36217-5) [facility]URIC [id number] 09:13:00 Test Item Value Reference Range Interpretation Comments URIC ACID (test code = 8483692041) 6.2 mg/dL 3.6-8 Lab Interpretation (test code = Normal 56579-5) [facility] HospitalHEPATIC FUNCTION PANEL (87644) (ALB,T.PRO,BILI T,BU/BC,ALT,AST,ALK PHOS)2019-10-27 09:10:00 Test Item Value Reference Range Interpretation Comments TOTAL BILI (test code = 7666564317) 0.2 mg/dL 0.1-1.1 BILI UNCON (test code = 5174100448) 0.4 mg/dL 0.1-1.1 BILI CONJ (test code = 1716899242) 0.0 mg/dL 0-0.3 T PROTEIN (test code = 7527149349) 7.6 g/dL 6.3-8.2 ALBUMIN (test code = 9800000241) 4.0 g/dL 3.5-5 ALK PHOS (test code = 7551034912) 66 U/L 34-122 ALTv (test code = 1742-6) 29 U/L 5-50 AST(SGOT) (test code = 1622889765) 106 U/L 13-40 H Lab Interpretation (test code = Abnormal 65485-8) [facility] HospitalLIPID PANEL (26297)(TOTAL CHOLESTEROL, TRIGLYCERIDES, HDL)2019-10-27 09:10:00 Test Item Value Reference Range Interpretation Comments CHOL (test code = 122 mg/dL 120-200 2787334330) HDL (test code = 68 mg/dL >40 9792254805) HDLC RATIO (test code = See_Comment [Au tomated message] 7438624812) The system [employer] generated this result transmit tennille reference range : <=5.0. The refe rence range was not u sed to interpret th is result as normal/abnormal . TRIG (test code = 31 mg/dL 30-170 4553149692) LDL CHOL (test code = 48 mg/dL See_Comment [Auto mated message] 02083-8) The system [employer] generated this result transmit tennille reference range : <=160. The refe rence range was not u sed to interpret th is result as normal/abnormal . VLDL (test code = 6 mg/dL 5-60 6034947216) Lab Interpretation (test Normal code = 44033-8) [facility] HospitalCREATINE [id number] 09:10:00 Test Item Value Reference Range Interpretation Comments CK (test code = 2245350964) 174 U/L 33-194 Lab Interpretation (test code = Normal 61726-1) [facility] HospitalLIPASE2020-04-14 09:10:00 Test Item Value Reference Range Interpretation Comments LIPASE (test code = 1204681110) 115 U/L 0-220 Lab Interpretation (test code = Normal 34590-6) [facility] HospitalMAGNESIUM2020-04-14 09:10:00 Test Item Value Reference Range Interpretation Comments MAGNESIUM (test code = 5626981045) 2.7 mg/dL 1.7-2.4 H Lab Interpretation (test code = Abnormal 80619-5) [facility] HospitalPHOSPHORUS2020-04-14 09:10:00 Test Item Value Reference Range Interpretation Comments PHOSPHORUS (test code = 5883616168) 4.4 mg/dL 2.5-5 Lab Interpretation (test code = Normal 55411-2) [facility]UR[facility] [id number] 09:09:00 Test Item Value Reference Range Interpretation Comments URIC ACID (test code = 1870059449) 6.3 mg/dL 3.6-8 Lab Interpretation (test code = Normal 79748-3) [facility] GLUCOSE (AUTOMATED)2019-10-27 08:46:00 Test Item Value Reference Range Interpretation Comments POCT GLU (test code = 0320742143) 165 mg/dL 70-110 H Lab Interpretation (test code = Abnormal 42550-5) [facility] GLUCOSE (AUTOMATED)2019-10-27 06:48:00 Test Item Value Reference Range Interpretation Comments POCT GLU (test code = 6640621755) 103 mg/dL 70-110 Lab Interpretation (test code = Normal 81174-7) [facility] GLUCOSE (AUTOMATED)2019-10-27 05:32:00 Test Item Value Reference Range Interpretation Comments POCT GLU (test code = 0484323209) 82 mg/dL 70-110 Lab Interpretation (test code = Normal 40057-2) [facility] [id number] 04:55:00 Test Item Value Reference Range Interpretation Comments SARS-CoV-2 (test code = Not Detected Not Detected 56079-2) JUAN LUIS (test code = JUAN LUIS) ID NOW COVID-19 Assay is an isothermal nucleic acid amplification test intended for the qualitative detection of nucleic acid from SARS-CoV-2 viral RNA in nasopharyngeal (HOSPICE HOME HEALTH AIDE) specimens. It is used under Emergency Use [...] indicated. Lab Interpretation Normal (test code = 71605-4) [facility] WITH [id number] 04:50:00 Test Item Value Reference Range Interpretation [...] RDW-SD (test code = 49.4 fL 38.5-51.6 11069-0) RDW-CV (test code = 19.4 % 12.1-15.4 H 788-0) PLT (test code = See_Comment [Automated 777-3) message] The sy stem which generated this result transmitted reference range : 150 - 328 10*3/ ?L. The reference r christine was not used to interpret this result as normal/abnormal . MPV (test code = 11.8 fL 9.8-13 61224-9) IPF % (test code = 2.6 % 1.2-10.7 Platelet count 0623517919) measured by fluorescence method. NRBC/100 WBC (test See_Comment [Automat ed code = 0832244327) message] The system which generated this result transmitted reference range : 0.0 - 10.0 /100 WBCs. The refer ence range was not u sed to interpret th is result as normal/abnormal . NRBC x10^3 (test code <0.01 See_Comment [Auto mated = 0374550101) message] The s ystem which generated this result transmitted reference range : 10*3/?L. The reference range was not used to interpret this result as normal/abnormal . GRAN MAT (NEUT) % 74.7 % (test code = 770-8) IMM GRAN % (test code 0.40 % = 7504678929) LYMPH % (test code = 11.6 % 736-9) MONO % (test code = 10.8 % 5905-5) EOS % (test code = 1.9 % 713-8) BASO % (test code = 0.6 % 706-2) GRAN MAT x10^3(ANC) 7.51 10*3/uL 1.99-6.95 H (test code = 3017607878) IMM GRAN x10^3 (test 0.04 10*3/uL 0-0.06 code = 6601708982) LYMPH x10^3 (test code 1.16 10*3/uL 1.09-3.23 = 731-0) MONO x10^3 (test code 1.08 10*3/uL 0.36-1.02 H = 742-7) EOS x10^3 (test code = 0.19 10*3/uL 0.06-0.53 711-2) BASO x10^3 (test code 0.06 10*3/uL 0.01-0.09 = 704-7) Lab Interpretation Abnormal (test code = 64830-0) [facility]2019-10-27 04:33:00 Test Item Value Reference Range Interpretation Comments POCT GLU (test code = 7726124132) 51 mg/dL 70-110 L Lab Interpretation (test code = Abnormal 51181-4) [facility] (NA, K, CL, CO2, GLUCOSE, BUN, CREATININE, CA)2019-10-27 03:51:00 Test Item Value Reference Range Interpretation Comments NA (test code = 140 mmol/L 135-145 4030074835) K (test code = 4.7 mmol/L 3.5-5 3952714644) CL (test code = 106 mmol/L 98-108 2383723980) CO2 TOTAL (test code = 27 mmol/L 23-31 2765977041) AGAP (test code = 2-16 5267886235) BUN (test code = 59 mg/dL 7-23 H 1835581934) GLUCOSE (test code = <20 70-110 LL 8518215589) CREATININE (test code = 1.57 mg/dL 0.6-1.25 H 9760634447) CALCIUM (test code = 9.6 mg/dL 8.6-10.6 0000084965) eGFR Calculation mL/min/1.73m2 (Non-) (test code = 1773741117) eGFR Calculation mL/min/1.73m2 () (test code = 3004118373) JUAN LUIS (test code = JUAN LUIS) [...] tests). Lab Interpretation Abnormal (test code = 46562-0) [facility] GLUCOSE (AUTOMATED)2019-10-27 03:34:00 Test Item Value Reference Range Interpretation Comments POCT GLU (test code = 6777996041) 69 mg/dL 70-110 L Lab Interpretation (test code = Abnormal 40531-8) [facility] GLUCOSE (AUTOMATED)2019-10-27 03:01:00 Test Item Value Reference Range Interpretation Comments POCT GLU (test code = 6034770048) 26 mg/dL 70-110 LL Lab Interpretation (test code = Abnormal 32752-6) [facility] GLUCOSE (AUTOMATED)2019-10-01 16:55:00 Test Item Value Reference Range Interpretation Comments POCT GLU (test code = 4004822052) 182 mg/dL 70-110 H Lab Interpretation (test code = Abnormal 93615-4) [facility] METABOLIC PANEL (NA, K, CL, CO2, GLUCOSE, BUN, CREATININE, CA)2019-10-01 13:17:00 Test Item Value Reference Range Interpretation Comments NA (test code = 137 mmol/L 135-145 3810598789) K (test code = 5.1 mmol/L 3.5-5 H 1963482846) CL (test code = 104 mmol/L 98-108 7090362358) CO2 TOTAL (test code = 24 mmol/L 23-31 6753329122) AGAP (test code = 2-16 3771962720) BUN (test code = 40 mg/dL 7-23 H 3556952118) GLUCOSE (test code = 98 mg/dL 70-110 1362346326) CREATININE (test code = 1.72 mg/dL 0.6-1.25 H 5408468671) CALCIUM (test code = 8.3 mg/dL 8.6-10.6 L 5918241779) eGFR Calculation mL/min/1.73m2 (Non-) (test code = 5831461879) eGFR Calculation mL/min/1.73m2 () (test code = 5454835127) JUAN LUIS (test code = JUAN LUIS) [...] tests). Lab Interpretation Abnormal (test code = 78677-8) [facility] GLUCOSE (AUTOMATED)2019-10-01 13:04:00 Test Item Value Reference Range Interpretation Comments POCT GLU (test code = 8050804896) 163 mg/dL 70-110 H Lab Interpretation (test code = Abnormal 85812-9) [facility] GLUCOSE (AUTOMATED)2019-10-01 02:08:00 Test Item Value Reference Range Interpretation Comments POCT GLU (test code = 8665928007) 156 mg/dL 70-110 H Lab Interpretation (test code = Abnormal 56150-5) [facility] GLUCOSE (AUTOMATED)2019-09-30 21:47:00 Test Item Value Reference Range Interpretation Comments POCT GLU (test code = 0440711654) 139 mg/dL 70-110 H Lab Interpretation (test code = Abnormal 73522-7) [facility] [id number] 17:06:00 Test Item Value Reference Range Interpretation Comments Occult (guaiac) Blood (test code = Negative Negative 2335-8) Lab Interpretation (test code = Normal 90800-8) [facility] GLUCOSE (AUTOMATED)2019-09-30 17:06:00 Test Item Value Reference Range Interpretation Comments POCT GLU (test code = 4254175701) 83 mg/dL 70-110 Lab Interpretation (test code = Normal 33645-4) [facility] GLUCOSE (AUTOMATED)2019-09-30 13:35:00 Test Item Value Reference Range Interpretation Comments POCT GLU (test code = 4767001743) 225 mg/dL 70-110 H Lab Interpretation (test code = Abnormal 41293-2) [facility] Metabolic Panel (NA, K, CL, CO2, GLUCOSE, BUN, CREATININE, CA)2019-09-30 08:40:00 Test Item Value Reference Range Interpretation Comments NA (test code = 137 mmol/L 135-145 3829816160) K (test code = 4.7 mmol/L 3.5-5 8313256694) CL (test code = 105 mmol/L 98-108 3056952257) CO2 TOTAL (test code = 24 mmol/L 23-31 9974711389) AGAP (test code = 2-16 0153718491) BUN (test code = 45 mg/dL 7-23 H 1615191374) GLUCOSE (test code = 227 mg/dL 70-110 H 2588482538) CREATININE (test code = 1.89 mg/dL 0.6-1.25 H 6169207968) CALCIUM (test code = 8.4 mg/dL 8.6-10.6 L 7822544961) eGFR Calculation mL/min/1.73m2 (Non-) (test code = 5212136515) eGFR Calculation mL/min/1.73m2 () (test code = 5921140585) JUAN LUIS (test code = JUAN LUIS) [...] tests). Lab Interpretation Abnormal (test code = 70336-2) [facility] HospitalMagn[facility] [id number] 08:40:00 Test Item Value Reference Range Interpretation Comments MAGNESIUM (test code = 5657642316) 2.2 mg/dL 1.7-2.4 Lab Interpretation (test code = Normal 43382-2) [facility] HospitalCT THORAX WO [id number] 03:37:29 1. 6.4 x 6.9 cm left lower lobe consolidation likely pneumonia. Follow-upchest radiographs are recommended to demonstrate complete resolution.2. Small right pleural effusion.3. Mild emphysema.4. Cardiomegaly.5. Mild reactive mediastinal lymphadenopathy.6. Status post CABG. RL: 6190 End of report ORDERING CLINICIAN: ROSIBEL DE LA PZA TECHNIQUE: Multidetector helical scanning of the chest [...] lymphadenopathy.6. Status post CABG.RL: 6190End of report [facility] CbufhbKcoxlprihj4663-79-70 02:46:00 Test Item Value Reference Range Interpretation Comments APPEARANCE (test code = Clear Clear 3905155373) COLOR (test code = Straw Yellow A 9729388033) PH (test code = 4.8-8.0 8286516527) SP GRAVITY (test code = 1.003-1.030 1956716081) GLU U QUAL (test code = Normal Normal 2239957225) BLOOD (test code = Negative Negative 7749844819) KETONES (test code = Negative Negative 3687991244) PROTEIN (test code = 100 mg/dL Negative A 2887-8) UROBILIN (test code = Normal Normal 5692807434) BILIRUBIN (test code = Negative Negative 3820775908) NITRITE (test code = Negative Negative 1003258109) LEUK SILVIO (test code = Negative Negative 3649119972) RBC/HPF (test code = See_Comment [Autom ated message] 3275383001) The system [employer] generated this result transmit tennille reference range : 0 - 3 HPF. The refe rence range was not u sed to interpret th is result as normal/abnormal . WBC/HPF (test code = <1 See_Comment [Autom ated message] 0156716209) The system [employer] generated this result transmit tennille reference range : 0 - 5 HPF. The refe rence range was not u sed to interpret th is result as normal/abnormal . BACTERIA (test code = Negative Negative 7085607678) Lab Interpretation (test Abnormal code = 48560-7) [facility]2019-09-30 01:30:00 Test Item Value Reference Range Interpretation Comments POCT GLU (test code = 7877634265) 180 mg/dL 70-110 H Lab Interpretation (test code = Abnormal 56424-9) [facility] HospitalTroponin [id number] 22:35:00 Test Item Value Reference Range Interpretation Comments TROPONIN I (test 0.029 ng/mL See_Comment [Automated code = 3265884169) message] The system which generated this result [...] ? Lab Interpretation Normal (test code = 89902-8) [facility] HospitalN-TERMINAL EAS-[id number] 22:35:00 Test Item Value Reference Range Interpretation Comments NT-proBNP (test code 82549 pg/mL See_Comment H [Autom ated = 7025742678) message] The system which generated this result transmitted reference range : <=125. The reference range was not used to interpret this result as normal/abnormal . JUAN LUIS (test code = JUAN LUIS) Biotin has been reported to cause a negative bias, interpret results relative to patient's use of biotin. Lab Interpretation Abnormal (test code = 18746-0) [facility]XR FOOT 3+ VW [id number] 22:25:411. No acute fracture. EXAM: Right foot [...] swelling is seen in the midfoot.IMPRESSION1.No acute fracture.[facility] 1 [id number] 22:23:02CHEST ONE VIEW HISTORY: ?SOB TECHNIQUE: ?AP [...] lefthemidiaphragm2. Small left pleural effusion and mild cardiomegalyUnEl Paso Children[facility] HospitalB[facility]igh[facility] Metabolic Panel (NA, K, CL, CO2, GLUCOSE, BUN, CREATININE, CA)2019-09-29 22:23:00 Test Item Value Reference Range Interpretation Comments NA (test code = 136 mmol/L 135-145 0924064153) K (test code = 5.3 mmol/L 3.5-5 H 7444104335) CL (test code = 104 mmol/L 98-108 8068045298) CO2 TOTAL (test code = 23 mmol/L 23-31 8163141863) AGAP (test code = 2-16 5212706059) BUN (test code = 50 mg/dL 7-23 H 8377479145) GLUCOSE (test code = 76 mg/dL 70-110 7578608061) CREATININE (test code = 1.92 mg/dL 0.6-1.25 H 3618005342) CALCIUM (test code = 8.6 mg/dL 8.6-10.6 5998904820) eGFR Calculation mL/min/1.73m2 (Non-) (test code = 8685011035) eGFR Calculation mL/min/1.73m2 () (test code = 7988528782) JUAN LUIS (test code = JUAN LUIS) [...] tests). Lab Interpretation Abnormal (test code = 80150-3) [facility] HospitalHepatic Function Panel (ALB, T.PRO, BILI T, BU/BC, ALT, AST, ALK PHOS)2019-09-29 22:23:00 Test Item Value Reference Range Interpretation Comments TOTAL BILI (test code = 0734311585) 0.3 mg/dL 0.1-1.1 BILI UNCON (test code = 6634197009) 0.2 mg/dL 0.1-1.1 BILI CONJ (test code = 2028676939) 0.0 mg/dL 0-0.3 T PROTEIN (test code = 7269825947) 6.3 g/dL 6.3-8.2 ALBUMIN (test code = 2912895807) 3.1 g/dL 3.5-5 L ALK PHOS (test code = 4266495304) 95 U/L 34-122 ALTv (test code = 1742-6) 15 U/L 5-50 AST(SGOT) (test code = 5391238906) 19 U/L 13-40 Lab Interpretation (test code = Abnormal 51038-9) [facility] HospitalaPTT2020-03-17 22:13:00 Test Item Value Reference Range Interpretation Comments APTT Patient (test code = See_Comment [ Automated message] 3173-2) The system [employer] h generated this result transmitted ref erence range: 26 - 36 Seconds. The re ference range was not u sed to interpret this result as normal/abnor mal. Lab Interpretation (test Normal code = 56022-2) [facility] HospitalProthrombin Time (PT) / [id number] 22:13:00 Test Item Value Reference Range Interpretation Comments PROTIME PATIENT (test See_Comment [Auto mated message] code = 5964-2) The system [facility] generated this result transmitted ref erence range: 10.1 - 1 2.6 Seconds. The re ference range was not u sed to interpret this result as normal/abnor mal. INR (test code = 6301-6) Nor mal INR <1.1; Warfarin Therap eutic range 2.0 to 3. 0 or 2.5 to 3.5, dep ending upon the indica tions. Lab Interpretation (test Normal code = 55481-4) [facility] HospitalCBC WITH [id number] 22:09:00 Test Item Value Reference Range Interpretation Comments WBC (test code = See_Comment [Automated 2938-2) message] The sy stem which generated this result transmitted reference range : 4.20 - 10.70 10*3/?L. The reference range was not used to interpret this result as normal/abnormal . RBC (test code = See_Comment L [Automated 951-8) message] The sy stem which generated this [...] (test code = 55.0 fL 38.5-51.6 H 29607-9) RDW-CV (test code = 22.0 % 12.1-15.4 H 788-0) PLT (test code = See_Comment H [Automated 777-3) message] The sy stem which generated this result transmitted reference range : 150 - 328 10*3/ ?L. The reference r christine was not used to interpret this result as normal/abnormal . MPV (test code = 11.1 fL 9.8-13 33052-6) NRBC/100 WBC (test See_Comment [Automat ed code = 4931301689) message] The system which generated this result transmitted reference range : 0.0 - 10.0 /100 WBCs. The refer ence range was not u sed to interpret th is result as normal/abnormal . NRBC x10^3 (test code <0.01 See_Comment [Auto mated = 2289676682) message] The s ystem which generated this result transmitted reference range : 10*3/?L. The reference range was not used to interpret this result as normal/abnormal . GRAN MAT (NEUT) % 65.4 % (test code = 770-8) IMM GRAN % (test code 0.30 % = 7794951346) LYMPH % (test code = 18.2 % 736-9) MONO % (test code = 10.9 % 5905-5) EOS % (test code = 4.3 % 713-8) BASO % (test code = 0.9 % 706-2) GRAN MAT x10^3(ANC) 5.73 10*3/uL 1.99-6.95 (test code = 9680587869) IMM GRAN x10^3 (test 0.03 10*3/uL 0-0.06 code = 5821570514) LYMPH x10^3 (test code 1.60 10*3/uL 1.09-3.23 = 731-0) MONO x10^3 (test code 0.96 10*3/uL 0.36-1.02 = 742-7) EOS x10^3 (test code = 0.38 10*3/uL 0.06-0.53 711-2) BASO x10^3 (test code 0.08 10*3/uL 0.01-0.09 = 704-7) Lab Interpretation Abnormal (test code = 72130-0) [facility] HospitalCOMP. METABOLIC PANEL (16033)2019-09-29 16:09:00 Test Item Value Reference Range Interpretation Comments NA (test code = 136 mmol/L 135-145 4871707433) K (test code = 5.4 mmol/L 3.5-5 H 5240774335) CL (test code = 105 mmol/L 98-108 2379697933) CO2 TOTAL (test code = 23 mmol/L 23-31 5649660667) AGAP (test code = 2-16 3811234134) BUN (test code = 53 mg/dL 7-23 H 2564320937) GLUCOSE (test code = 242 mg/dL 70-110 H 2712095271) CREATININE (test code = 1.97 mg/dL 0.6-1.25 H 3749401701) TOTAL BILI (test code = 0.1 mg/dL 0.1-1.3 7623827674) CALCIUM (test code = 8.6 mg/dL 8.6-10.6 4928340724) T PROTEIN (test code = 6.0 g/dL 6.3-8.2 L 4440322111) ALBUMIN (test code = 2.9 g/dL 3.5-5 L 6255891196) ALK PHOS (test code = 91 U/L 34-122 8151790222) ALTv (test code = 15 U/L 5-50 1742-6) AST(SGOT) (test code = 22 U/L 13-40 6741772076) eGFR Calculation mL/min/1.73m2 (Non-) (test code = 3885912286) eGFR Calculation mL/min/1.73m2 () (test code = 0873490015) JUAN LUIS (test code = JUAN LUIS) [...] tests). Lab Interpretation Abnormal (test code = 24900-6) [facility] WITH [id number] 15:42:00 Test Item Value Reference Range Interpretation Comments WBC (test code = See_Comment [Automated 2090-2) message] The sy stem which generated this result transmitted reference range : 4.20 - 10.70 10*3/?L. The reference range was not used to interpret this result as normal/abnormal . RBC (test code = See_Comment L [Automated 629-8) message] The sy stem which generated this [...] (test code = 55.4 fL 38.5-51.6 H 09663-5) RDW-CV (test code = 22.5 % 12.1-15.4 H 788-0) PLT (test code = See_Comment [Automated 777-3) message] The sy stem which generated this result transmitted reference range : 150 - 328 10*3/ ?L. The reference r christine was not used to interpret this result as normal/abnormal . MPV (test code = 12.0 fL 9.8-13 22816-9) NRBC/100 WBC (test See_Comment [Automat ed code = 8021550361) message] The system which generated this result transmitted reference range : 0.0 - 10.0 /100 WBCs. The refer ence range was not u sed to interpret th is result as normal/abnormal . NRBC x10^3 (test code <0.01 See_Comment [Auto mated = 1443552688) message] The s ystem which generated this result transmitted reference range : 10*3/?L. The reference range was not used to interpret this result as normal/abnormal . GRAN MAT (NEUT) % 71.8 % (test code = 770-8) IMM GRAN % (test code 0.40 % = 6541305679) LYMPH % (test code = 13.9 % 736-9) MONO % (test code = 9.4 % 5905-5) EOS % (test code = 3.8 % 713-8) BASO % (test code = 0.7 % 706-2) GRAN MAT x10^3(ANC) 5.49 10*3/uL 1.99-6.95 (test code = 5349575193) IMM GRAN x10^3 (test 0.03 10*3/uL 0-0.06 code = 6727206770) LYMPH x10^3 (test code 1.06 10*3/uL 1.09-3.23 L = 731-0) MONO x10^3 (test code 0.72 10*3/uL 0.36-1.02 = 742-7) EOS x10^3 (test code = 0.29 10*3/uL 0.06-0.53 711-2) BASO x10^3 (test code 0.05 10*3/uL 0.01-0.09 = 704-7) Lab Interpretation Abnormal (test code = 42865-5) [facility] [id number] 15:03:28HISTORY: S/P CABG. TECHNIQUE: PA and lateral [...] minimal congestion/atelectatic changes inthe left lung base.[facility], Radiant Results Inft User - 09/29/2019 [...] minimal congestion/atelectatic changes inthe left lung base. [facility] HospitalREF[facility] OCCUP[facility] [id number] 00:00:00Consult received and chart reviewed via [employer]. ?Please refer to progress note for details. ? Gordo [phone] pgr.[facility]REF[facility] [id number] 00:00:00Consult received and verbal order placed 09-21-2019 for patient seen in clinic 09-21-2019. ?Please refer to progress note for details. Gordo [phone] pgr.[facility] 2 [id number] 01:43:48Impression:1. Persistent but improved left pleural effusion [...] heart surgery 2 weeks ago Ordering physician: Dedrick Kwono damon.Comparison: AugustFindings:Median sternotomy present. Large cardiac silhouette is seen. Small lefteffusion and basilar atelectasis is present. This has improved. Nopneumothorax. No lobar consolidation. Bone demineralization stable. Theremainder is unchanged.IMPRESSIONImpression:1. Persistent but improved left pleural effusion and left basilaratelectasis.[facility]2019-09-15 18:20:00 Test Item Value Reference Range Interpretation Comments POCT GLU (test code = 7060313033) 160 mg/dL 70-110 H Lab Interpretation (test code = Abnormal 08001-7) [facility] HospitalSPUTUM [id number] 18:07:00 Test Item Value Reference Range Interpretation Comments SPUTUM CULTURE 1+ Respiratory alla: (test code = Commensal upper respiratory 622-1) microorganisms only. Gram stain (test Occasional (Rare) code = 664-3) Polymorphonuclear leukocytes JUAN LUIS (test code = Bacterial pathogens JUAN LUIS) associated with lower respiratory infections were not identified, which include Pseudomonas aeruginosa and Staphylococcus aureus (MRSA or MSSA). [facility] HospitalBASI METABOLIC PANEL (NA, K, CL, CO2, GLUCOSE, BUN, CREATININE, CA)2019-09-15 17:31:00 Test Item Value Reference Range Interpretation Comments NA (test code = 137 mmol/L 135-145 9469044009) K (test code = 4.2 mmol/L 3.5-5 6137964521) CL (test code = 99 mmol/L 98-108 8337402632) CO2 TOTAL (test code = 30 mmol/L 23-31 2111465341) AGAP (test code = 2-16 8105269587) BUN (test code = 31 mg/dL 7-23 H 1965695041) GLUCOSE (test code = 156 mg/dL 70-110 H 8959408404) CREATININE (test code = 0.94 mg/dL 0.6-1.25 8331607653) CALCIUM (test code = 8.1 mg/dL 8.6-10.6 L 2082713576) eGFR Calculation mL/min/1.73m2 (Non-) (test code = 6234824220) eGFR Calculation mL/min/1.73m2 () (test code = 6228262865) JUAN LUIS (test code = JUAN LUIS) [...] tests). Lab Interpretation Abnormal (test code = 39240-6) [facility] WITH [id number] 17:11:00 Test Item Value Reference Range Interpretation [...] (test code = 55.8 fL 38.5-51.6 H 53251-4) RDW-CV (test code = 22.6 % 12.1-15.4 H 788-0) PLT (test code = See_Comment H [Automated 777-3) message] The sy stem which generated this result transmitted reference range : 150 - 328 10*3/ ?L. The reference r christine was not used to interpret this result as normal/abnormal . MPV (test code = 10.6 fL 9.8-13 92083-8) NRBC/100 WBC (test See_Comment [Automat ed code = 0115409794) message] The system which generated this result transmitted reference range : 0.0 - 10.0 /100 WBCs. The refer ence range was not u sed to interpret th is result as normal/abnormal . NRBC x10^3 (test code <0.01 See_Comment [Auto mated = 2836942927) message] The s ystem which generated this result transmitted reference range : 10*3/?L. The reference range was not used to interpret this result as normal/abnormal . GRAN MAT (NEUT) % 78.3 % (test code = 770-8) IMM GRAN % (test code 0.30 % = 4196973153) LYMPH % (test code = 11.7 % 736-9) MONO % (test code = 7.2 % 5905-5) EOS % (test code = 2.2 % 713-8) BASO % (test code = 0.3 % 706-2) GRAN MAT x10^3(ANC) 9.12 10*3/uL 1.99-6.95 H (test code = 5581816509) IMM GRAN x10^3 (test 0.04 10*3/uL 0-0.06 code = 2314313481) LYMPH x10^3 (test code 1.36 10*3/uL 1.09-3.23 = 731-0) MONO x10^3 (test code 0.84 10*3/uL 0.36-1.02 = 742-7) EOS x10^3 (test code = 0.26 10*3/uL 0.06-0.53 711-2) BASO x10^3 (test code 0.03 10*3/uL 0.01-0.09 = 704-7) Lab Interpretation Abnormal (test code = 80182-1) [facility] GLUCOSE (AUTOMATED)2019-09-15 14:16:00 Test Item Value Reference Range Interpretation Comments POCT GLU (test code = 8831370990) 114 mg/dL 70-110 H Lab Interpretation (test code = Abnormal 39275-8) [facility] GLUCOSE (AUTOMATED)2019-09-15 03:22:00 Test Item Value Reference Range Interpretation Comments POCT GLU (test code = 7790512389) 128 mg/dL 70-110 H Lab Interpretation (test code = Abnormal 19606-7) [facility] GLUCOSE (AUTOMATED)2019-09-14 22:37:00 Test Item Value Reference Range Interpretation Comments POCT GLU (test code = 8111407745) 133 mg/dL 70-110 H Lab Interpretation (test code = Abnormal 96859-7) [facility] GLUCOSE (AUTOMATED)2019-09-14 18:45:00 Test Item Value Reference Range Interpretation Comments POCT GLU (test code = 0528581759) 143 mg/dL 70-110 H Lab Interpretation (test code = Abnormal 47686-8) [facility] [id number] 14:19:08 Bilateral hazy and patchy airspace opacities [...] leftlung may represent an atelectasis or pneumonia. [facility] GLUCOSE (AUTOMATED)2019-09-14 13:30:00 Test Item Value Reference Range Interpretation Comments POCT GLU (test code = 3650725521) 78 mg/dL 70-110 Lab Interpretation (test code = Normal 68840-5) [facility] (NA, K, CL, CO2, GLUCOSE, BUN, CREATININE, CA)2019-09-14 10:04:00 Test Item Value Reference Range Interpretation Comments NA (test code = 136 mmol/L 135-145 8001757008) K (test code = 4.2 mmol/L 3.5-5 4695434416) CL (test code = 102 mmol/L 98-108 4539288567) CO2 TOTAL (test code = 30 mmol/L 23-31 6296329090) AGAP (test code = 2-16 4078200887) BUN (test code = 33 mg/dL 7-23 H 4665578908) GLUCOSE (test code = 98 mg/dL 70-110 3694921927) CREATININE (test code = 1.00 mg/dL 0.6-1.25 7341822189) CALCIUM (test code = 7.5 mg/dL 8.6-10.6 L 3539748847) eGFR Calculation mL/min/1.73m2 (Non-) (test code = 7537907111) eGFR Calculation mL/min/1.73m2 () (test code = 8659744483) JUAN LUIS (test code = JUAN LUIS) [...] tests). Lab Interpretation Abnormal (test code = 33994-0) [facility] 10:04:00 Test Item Value Reference Range Interpretation Comments MAGNESIUM (test code = 0712781170) 2.1 mg/dL 1.7-2.4 Lab Interpretation (test code = Normal 21883-2) [facility] GLUCOSE (AUTOMATED)2019-09-14 08:13:00 Test Item Value Reference Range Interpretation Comments POCT GLU (test code = 4476781300) 71 mg/dL 70-110 Lab Interpretation (test code = Normal 07422-2) [facility] GLUCOSE (AUTOMATED)2019-09-14 02:25:00 Test Item Value Reference Range Interpretation Comments POCT GLU (test code = 7130404287) 53 mg/dL 70-110 L Lab Interpretation (test code = Abnormal 62133-0) [facility] GLUCOSE (AUTOMATED)2019-09-13 23:06:00 Test Item Value Reference Range Interpretation Comments POCT GLU (test code = 5951831850) 140 mg/dL 70-110 H Lab Interpretation (test code = Abnormal 06337-7) [facility] GLUCOSE (AUTOMATED)2019-09-13 17:45:00 Test Item Value Reference Range Interpretation Comments POCT GLU (test code = 2240925303) 260 mg/dL 70-110 H Lab Interpretation (test code = Abnormal 11180-4) [facility] GLUCOSE (AUTOMATED)2019-09-13 14:07:00 Test Item Value Reference Range Interpretation Comments POCT GLU (test code = 6101820014) 194 mg/dL 70-110 H Lab Interpretation (test code = Abnormal 42205-6) [facility] (NA, K, CL, CO2, GLUCOSE, BUN, CREATININE, CA)2019-09-13 10:14:00 Test Item Value Reference Range Interpretation Comments NA (test code = 135 mmol/L 135-145 0664555982) K (test code = 4.4 mmol/L 3.5-5 6113500175) CL (test code = 101 mmol/L 98-108 6286724516) CO2 TOTAL (test code = 27 mmol/L 23-31 8128431815) AGAP (test code = 2-16 0945437403) BUN (test code = 34 mg/dL 7-23 H 5079719370) GLUCOSE (test code = 178 mg/dL 70-110 H 8150261289) CREATININE (test code = 1.02 mg/dL 0.6-1.25 6050874355) CALCIUM (test code = 7.8 mg/dL 8.6-10.6 L 7277628357) eGFR Calculation mL/min/1.73m2 (Non-) (test code = 8036893272) eGFR Calculation mL/min/1.73m2 () (test code = 8029186673) JUAN LUIS (test code = JUAN LUIS) [...] tests). Lab Interpretation Abnormal (test code = 45624-9) [facility] 10:14:00 Test Item Value Reference Range Interpretation Comments MAGNESIUM (test code = 9171952325) 2.2 mg/dL 1.7-2.4 Lab Interpretation (test code = Normal 22692-8) [facility] WITH [id number] 10:01:00 Test Item Value Reference Range Interpretation [...] (test code = 57.0 fL 38.5-51.6 H 98836-8) RDW-CV (test code = 22.5 % 12.1-15.4 H 788-0) PLT (test code = See_Comment [Automated 777-3) message] The sy stem which generated this result transmitted reference range : 150 - 328 10*3/ ?L. The reference r christine was not used to interpret this result as normal/abnormal . MPV (test code = 10.4 fL 9.8-13 25711-4) NRBC/100 WBC (test See_Comment [Automat ed code = 4033063307) message] The system which generated this result transmitted reference range : 0.0 - 10.0 /100 WBCs. The refer ence range was not u sed to interpret th is result as normal/abnormal . NRBC x10^3 (test code <0.01 See_Comment [Auto mated = 3230644488) message] The s ystem which generated this result transmitted reference range : 10*3/?L. The reference range was not used to interpret this result as normal/abnormal . GRAN MAT (NEUT) % 77.6 % (test code = 770-8) IMM GRAN % (test code 0.70 % = 5765918315) LYMPH % (test code = 11.2 % 736-9) MONO % (test code = 8.7 % 5905-5) EOS % (test code = 1.5 % 713-8) BASO % (test code = 0.3 % 706-2) GRAN MAT x10^3(ANC) 9.01 10*3/uL 1.99-6.95 H (test code = 3502491362) IMM GRAN x10^3 (test 0.08 10*3/uL 0-0.06 H code = 8670990512) LYMPH x10^3 (test code 1.30 10*3/uL 1.09-3.23 = 731-0) MONO x10^3 (test code 1.01 10*3/uL 0.36-1.02 = 742-7) EOS x10^3 (test code = 0.17 10*3/uL 0.06-0.53 711-2) BASO x10^3 (test code 0.03 10*3/uL 0.01-0.09 = 704-7) Lab Interpretation Abnormal (test code = 07130-3) [facility]2020-[facility] 07:12:00 Test Item Value Reference Range Interpretation Comments Procalcitonin (test 0.14 ng/mL <0.07 H code = 3633049183) JUAN LUIS (test code = JUAN LUIS) [...] lung abscess/empyema. For further information please refer to:[email or web address] Lab Interpretation Abnormal (test code = 36171-6) [facility]2019-09-13 02:20:00 Test Item Value Reference Range Interpretation Comments POCT GLU (test code = 8771655859) 227 mg/dL 70-110 H Lab Interpretation (test code = Abnormal 32357-5) [facility] [id number] 00:35:00 Test Item Value Reference Range Interpretation Comments TROPONIN I (test 0.087 ng/mL See_Comment H [Automated code = 5016536149) message] The system which generated this result [...] ? Lab Interpretation Abnormal (test code = 09543-2) [facility] 00:23:00 Test Item Value Reference Range Interpretation Comments MAGNESIUM (test code = 1984406036) 2.1 mg/dL 1.7-2.4 Lab Interpretation (test code = Normal 50626-3) [facility] GLUCOSE (AUTOMATED)2019-09-12 22:52:00 Test Item Value Reference Range Interpretation Comments POCT GLU (test code = 5546435051) 135 mg/dL 70-110 H Lab Interpretation (test code = Abnormal 39912-9) [facility] GLUCOSE (AUTOMATED)2019-09-12 19:33:00 Test Item Value Reference Range Interpretation Comments POCT GLU (test code = 3774902065) 150 mg/dL 70-110 H Lab Interpretation (test code = Abnormal 59542-2) [facility]2020-02-29 18:28:00 Test Item Value Reference Range Interpretation Comments APTT Patient (test See_Comment [Automat ed code = 3173-2) message] The system which generated this result transmitted reference range : 23 - 38 Seconds . The reference range was not used to interpr et this result as normal/abnormal . JUAN LUIS (test code = JUAN LUIS) The [facility] patient population mean normal value for aPTT is 30 seconds. Lab Interpretation Normal (test code = 32088-7) [facility] 1 [id number] 16:45:37Impression:1. Left basilar atelectasis or pneumonia with [...] osseousstructures unremarkable. Cardiac silhouette is enlarged. [facility], Radiant Results Inft User - 09/12/2019 [...] dictation.2. Central congestion without edema.[facility] [id number] 16:20:00 Test Item Value Reference Range Interpretation Comments LACTIC ACID (test code = 1.00 mmol/L 0.5-2.2 2098116017) Lab Interpretation (test code = Normal 71111-7) [facility] [id number] 16:11:00 Test Item Value Reference Range Interpretation Comments TROPONIN I (test 0.104 ng/mL See_Comment H [Automated code = 1180878325) message] The system which generated this result [...] ? Lab Interpretation Abnormal (test code = 44348-6) [facility] MET[facility]OLIC PAN[facility] (51881)2019-09-12 16:09:00 Test Item Value Reference Range Interpretation Comments NA (test code = 135 mmol/L 135-145 0362101862) K (test code = 5.1 mmol/L 3.5-5 H 0948828075) CL (test code = 101 mmol/L 98-108 6933515906) CO2 TOTAL (test code = 27 mmol/L 23-31 4589393876) AGAP (test code = 2-16 5084383136) BUN (test code = 39 mg/dL 7-23 H 9244701162) GLUCOSE (test code = 118 mg/dL 70-110 H 6385242971) CREATININE (test code = 1.12 mg/dL 0.6-1.25 5335178169) TOTAL BILI (test code = 0.4 mg/dL 0.1-1.2 9742732152) CALCIUM (test code = 8.6 mg/dL 8.6-10.6 1535979261) T PROTEIN (test code = 6.1 g/dL 6.3-8.2 L 1025496124) ALBUMIN (test code = 3.1 g/dL 3.5-5 L 5448145093) ALK PHOS (test code = 76 U/L 34-122 1529412697) ALTv (test code = 13 U/L 5-50 1742-6) AST(SGOT) (test code = 23 U/L 13-40 8047344304) eGFR Calculation mL/min/1.73m2 (Non-) (test code = 1543014902) eGFR Calculation mL/min/1.73m2 () (test code = 0189041222) JUAN LUIS (test code = JUAN LUIS) [...] tests). Lab Interpretation Abnormal (test code = 45903-9) [facility]IPASE2020-02-29 16:09:00 Test Item Value Reference Range Interpretation Comments LIPASE (test code = 1586392266) 29 U/L 0-220 Lab Interpretation (test code = Normal 34752-8) [facility]2020-02-29 16:09:00 Test Item Value Reference Range Interpretation Comments MAGNESIUM (test code = 5633723112) 2.3 mg/dL 1.7-2.4 Lab Interpretation (test code = Normal 51045-6) [facility]N-TERMINAL [id number] 16:09:00 Test Item Value Reference Range Interpretation Comments NT-proBNP (test code 83057 pg/mL See_Comment H [Autom ated = 6603505483) message] The system which generated this result transmitted reference range : <=125. The reference range was not used to interpret this result as normal/abnormal . JUAN LUIS (test code = JUAN LUIS) Biotin has been reported to cause a negative bias, interpret results relative to patient's use of biotin. Lab Interpretation Abnormal (test code = 57320-0) [facility] HospitalPROTHROMBIN TIME / [id number] 15:51:00 Test Item Value Reference Range Interpretation [...] tions. Lab Interpretation (test Normal code = 98888-9) [facility] WITH [id number] 15:42:00 Test Item Value Reference Range Interpretation [...] (test code = 57.1 fL 38.5-51.6 H 68556-3) RDW-CV (test code = 22.9 % 12.1-15.4 H 788-0) PLT (test code = See_Comment H [Automated 777-3) message] The system which generated this result transmit tennille reference range : 150 - 328 10*3/ ?L. The reference range was not u sed to interpret th is result as normal/abnormal . MPV (test code = 11.1 fL 9.8-13 40980-1) NRBC/100 WBC (test See_Comment [Automat ed code = 0833105906) message] The system which generated this result transmit tennille reference range : 0.0 - 10.0 /100 WBCs. The reference range was not used to interpret this result as normal/abnormal . NRBC x10^3 (test code <0.01 See_Comment [Auto mated = 3088103813) message] The system which generated this result transmit tennille reference range : 10*3/?L. The reference range was not used to interpret this result as normal/abnormal . GRAN MAT (NEUT) % 76.8 % (test code = 770-8) IMM GRAN % (test code 0.70 % = 6890564981) LYMPH % (test code = 11.4 % 736-9) MONO % (test code = 8.6 % 5905-5) EOS % (test code = 2.0 % 713-8) BASO % (test code = 0.5 % 706-2) GRAN MAT x10^3(ANC) 11.37 10*3/uL 1.99-6.95 H (test code = 2173060346) IMM GRAN x10^3 (test 0.11 10*3/uL 0-0.06 H code = 4765607258) LYMPH x10^3 (test code 1.68 10*3/uL 1.09-3.23 = 731-0) MONO x10^3 (test code 1.28 10*3/uL 0.36-1.02 H = 742-7) EOS x10^3 (test code = 0.29 10*3/uL 0.06-0.53 711-2) BASO x10^3 (test code 0.07 10*3/uL 0.01-0.09 = 704-7) Lab Interpretation Abnormal (test code = 71730-5) [facility] GLUCOSE (AUTOMATED)2019-09-12 15:27:00 Test Item Value Reference Range Interpretation Comments POCT GLU (test code = 6339485576) 128 mg/dL 70-110 H Lab Interpretation (test code = Abnormal 65313-3) [facility] GLUCOSE (AUTOMATED)2019-09-07 18:25:00 Test Item Value Reference Range Interpretation Comments POCT GLU (test code = 8652872410) 92 mg/dL 70-110 Lab Interpretation (test code = Normal 19403-3) [facility] GLUCOSE (AUTOMATED)2019-09-07 14:39:00 Test Item Value Reference Range Interpretation Comments POCT GLU (test code = 9806708255) 118 mg/dL 70-110 H Lab Interpretation (test code = Abnormal 90925-6) [facility] GLUCOSE (AUTOMATED)2019-09-07 03:00:00 Test Item Value Reference Range Interpretation Comments POCT GLU (test code = 2647793078) 111 mg/dL 70-110 H Lab Interpretation (test code = Abnormal 82053-9) [facility] GLUCOSE (AUTOMATED)2019-09-06 23:30:00 Test Item Value Reference Range Interpretation Comments POCT GLU (test code = 4747284815) 66 mg/dL 70-110 L Lab Interpretation (test code = Abnormal 38675-4) [facility] GLUCOSE (AUTOMATED)2019-09-06 18:24:00 Test Item Value Reference Range Interpretation Comments POCT GLU (test code = 0817239876) 94 mg/dL 70-110 Lab Interpretation (test code = Normal 45785-2) [facility] GLUCOSE (AUTOMATED)2019-09-06 14:00:00 Test Item Value Reference Range Interpretation Comments POCT GLU (test code = 0942224536) 158 mg/dL 70-110 H Lab Interpretation (test code = Abnormal 53632-4) [facility] METABOLIC PANEL (NA, K, CL, CO2, GLUCOSE, BUN, CREATININE, CA)2019-09-06 07:25:00 Test Item Value Reference Range Interpretation Comments NA (test code = 134 mmol/L 135-145 L 6900385632) K (test code = 4.1 mmol/L 3.5-5 6248502890) CL (test code = 101 mmol/L 98-108 5674382103) CO2 TOTAL (test code = 27 mmol/L 23-31 9632247657) AGAP (test code = 2-16 7689442090) BUN (test code = 44 mg/dL 7-23 H 5106880258) GLUCOSE (test code = 138 mg/dL 70-110 H 1785213583) CREATININE (test code = 0.95 mg/dL 0.6-1.25 8733189746) CALCIUM (test code = 7.6 mg/dL 8.6-10.6 L 3268606426) eGFR Calculation mL/min/1.73m2 (Non-) (test code = 1043630428) eGFR Calculation mL/min/1.73m2 () (test code = 0623551477) JUAN LUIS (test code = JUAN LUIS) [...] tests). Lab Interpretation Abnormal (test code = 90481-5) [facility]2020-[facility]-23 07:25:00 Test Item Value Reference Range Interpretation Comments PHOSPHORUS (test code = 3357622956) 2.6 mg/dL 2.5-5 Lab Interpretation (test code = Normal 85622-6) [facility] WITH [id number] 07:10:00 Test Item Value Reference Range Interpretation Comments WBC (test code = See_Comment [Automated 3976-2) message] The sy stem which generated this [...] (test code = 59.2 fL 38.5-51.6 H 52370-6) RDW-CV (test code = 22.7 % 12.1-15.4 H 788-0) PLT (test code = See_Comment [Automated 777-3) message] The sy stem which generated this result transmitted reference range : 150 - 328 10*3/ ?L. The reference r christine was not used to interpret this result as normal/abnormal . MPV (test code = 11.4 fL 9.8-13 15354-5) NRBC/100 WBC (test See_Comment [Automat ed code = 3328198683) message] The system which generated this result transmitted reference range : 0.0 - 10.0 /100 WBCs. The refer ence range was not u sed to interpret th is result as normal/abnormal . NRBC x10^3 (test code <0.01 See_Comment [Auto mated = 4502287797) message] The s ystem which generated this result transmitted reference range : 10*3/?L. The reference range was not used to interpret this result as normal/abnormal . GRAN MAT (NEUT) % 73.2 % (test code = 770-8) IMM GRAN % (test code 0.50 % = 2820421382) LYMPH % (test code = 11.5 % 736-9) MONO % (test code = 11.2 % 5905-5) EOS % (test code = 3.3 % 713-8) BASO % (test code = 0.3 % 706-2) GRAN MAT x10^3(ANC) 7.78 10*3/uL 1.99-6.95 H (test code = 5545421441) IMM GRAN x10^3 (test 0.05 10*3/uL 0-0.06 code = 6714003673) LYMPH x10^3 (test code 1.22 10*3/uL 1.09-3.23 = 731-0) MONO x10^3 (test code 1.19 10*3/uL 0.36-1.02 H = 742-7) EOS x10^3 (test code = 0.35 10*3/uL 0.06-0.53 711-2) BASO x10^3 (test code 0.03 10*3/uL 0.01-0.09 = 704-7) Lab Interpretation Abnormal (test code = 46559-0) [facility] [id number] 01:35:34Impression: Stable findings with obliteration of the [...] are osteopenic. The upper abdomen is unremarkable. [facility], Radiant Results Inft User - 09/05/2019 7:36 [...] of the left hemidiaphragm and the leftcostophrenic angle..[facility]2019-09-06 01:25:00 Test Item Value Reference Range Interpretation Comments POCT GLU (test code = 2069838587) 98 mg/dL 70-110 Lab Interpretation (test code = Normal 83626-2) [facility] GLUCOSE (AUTOMATED)2019-09-05 23:11:00 Test Item Value Reference Range Interpretation Comments POCT GLU (test code = 2308714831) 76 mg/dL 70-110 Lab Interpretation (test code = Normal 81813-0) [facility] GLUCOSE (AUTOMATED)2019-09-05 18:45:00 Test Item Value Reference Range Interpretation Comments POCT GLU (test code = 0784701350) 99 mg/dL 70-110 Lab Interpretation (test code = Normal 71202-2) [facility] GLUCOSE (AUTOMATED)2019-09-05 13:48:00 Test Item Value Reference Range Interpretation Comments POCT GLU (test code = 5953780005) 229 mg/dL 70-110 H Lab Interpretation (test code = Abnormal 66401-7) [facility]2020-02-22 10:04:00 Test Item Value Reference Range Interpretation Comments PHOSPHORUS (test code = 5118683368) 3.4 mg/dL 2.5-5 Lab Interpretation (test code = Normal 97002-6) [facility] METABOLIC PANEL (NA, K, CL, CO2, GLUCOSE, BUN, CREATININE, CA)2019-09-05 10:04:00 Test Item Value Reference Range Interpretation Comments NA (test code = 135 mmol/L 135-145 7191913112) K (test code = 3.7 mmol/L 3.5-5 7056429644) CL (test code = 103 mmol/L 98-108 9638981595) CO2 TOTAL (test code = 26 mmol/L 23-31 0456457678) AGAP (test code = 2-16 1750402065) BUN (test code = 40 mg/dL 7-23 H 5978161408) GLUCOSE (test code = 173 mg/dL 70-110 H 0889256948) CREATININE (test code = 1.17 mg/dL 0.6-1.25 7129371081) CALCIUM (test code = 7.4 mg/dL 8.6-10.6 L 2903238837) eGFR Calculation mL/min/1.73m2 (Non-) (test code = 2781484233) eGFR Calculation mL/min/1.73m2 () (test code = 9165794780) JUAN LUIS (test code = JUAN LUIS) [...] tests). Lab Interpretation Abnormal (test code = 43605-7) [facility] 10:04:00 Test Item Value Reference Range Interpretation Comments MAGNESIUM (test code = 2130997231) 2.2 mg/dL 1.7-2.4 Lab Interpretation (test code = Normal 38750-6) [facility] WITH [id number] 09:53:00 Test Item Value Reference Range Interpretation Comments WBC (test code = See_Comment H [Automated 5590-2) message] The sy stem which generated this [...] (test code = 55.0 fL 38.5-51.6 H 52749-5) RDW-CV (test code = 22.1 % 12.1-15.4 H 788-0) PLT (test code = See_Comment L [Automated 777-3) message] The sy stem which generated this result transmitted reference range : 150 - 328 10*3/ ?L. The reference r christine was not used to interpret this result as normal/abnormal . MPV (test code = 10.6 fL 9.8-13 12170-7) NRBC/100 WBC (test See_Comment [Automat ed code = 9494332459) message] The system which generated this result transmitted reference range : 0.0 - 10.0 /100 WBCs. The refer ence range was not u sed to interpret th is result as normal/abnormal . NRBC x10^3 (test code <0.01 See_Comment [Auto mated = 6437514258) message] The s ystem which generated this result transmitted reference range : 10*3/?L. The reference range was not used to interpret this result as normal/abnormal . GRAN MAT (NEUT) % 78.0 % (test code = 770-8) IMM GRAN % (test code 0.70 % = 9729460334) LYMPH % (test code = 8.8 % 736-9) MONO % (test code = 10.6 % 5905-5) EOS % (test code = 1.6 % 713-8) BASO % (test code = 0.3 % 706-2) GRAN MAT x10^3(ANC) 9.06 10*3/uL 1.99-6.95 H (test code = 6593716088) IMM GRAN x10^3 (test 0.08 10*3/uL 0-0.06 H code = 6323284279) LYMPH x10^3 (test code 1.02 10*3/uL 1.09-3.23 L = 731-0) MONO x10^3 (test code 1.23 10*3/uL 0.36-1.02 H = 742-7) EOS x10^3 (test code = 0.18 10*3/uL 0.06-0.53 711-2) BASO x10^3 (test code 0.03 10*3/uL 0.01-0.09 = 704-7) Lab Interpretation Abnormal (test code = 66043-8) [facility] GLUCOSE (AUTOMATED)2019-09-05 05:58:00 Test Item Value Reference Range Interpretation Comments POCT GLU (test code = 6051250862) 160 mg/dL 70-110 H Lab Interpretation (test code = Abnormal 03523-9) [facility] GLUCOSE (AUTOMATED)2019-09-05 03:22:00 Test Item Value Reference Range Interpretation Comments POCT GLU (test code = 1669210318) 56 mg/dL 70-110 L Lab Interpretation (test code = Abnormal 98251-8) [facility] GLUCOSE (AUTOMATED)2019-09-05 03:22:00 Test Item Value Reference Range Interpretation Comments POCT GLU (test code = 7963829250) 103 mg/dL 70-110 Lab Interpretation (test code = Normal 73444-3) [facility] GLUCOSE (AUTOMATED)2019-09-05 02:41:00 Test Item Value Reference Range Interpretation Comments POCT GLU (test code = 3427871492) 98 mg/dL 70-110 Lab Interpretation (test code = Normal 70319-8) [facility] GLUCOSE (AUTOMATED)2019-09-04 18:03:00 Test Item Value Reference Range Interpretation Comments POCT GLU (test code = 5890247788) 173 mg/dL 70-110 H Lab Interpretation (test code = Abnormal 07767-1) [facility] [id number] 14:25:52 No acute intrathoracic abnormality. PROCEDURE: XR [...] abnormality. Sternotomy sutures are noted.IMPRESSIONNo acute intrathoracic abnormality.[facility] GLUCOSE (AUTOMATED)2019-09-04 14:18:00 Test Item Value Reference Range Interpretation Comments POCT GLU (test code = 6789156992) 198 mg/dL 70-110 H Lab Interpretation (test code = Abnormal 74201-2) [facility]IONIZED [id number] 13:12:00 Test Item Value Reference Range Interpretation Comments IONIZED CA (test code = 4.60 mg/dL 4.5-5.3 7626622532) PH SERUM (test code = 6456822081) 7.35-7.45 H Lab Interpretation (test code = Abnormal 13757-5) [facility] [id number] 11:39:00 Test Item Value Reference Range Interpretation Comments WBC (test code = See_Comment H [Automated 2690-2) message] The system which generated this result transmit tennille reference range : 4.20 - 10.70 10*3/?L. The reference range was not used to interpret this result as normal/abnormal . RBC (test code = See_Comment L [Automated 649-8) message] The system which generated this result [...] (test code = 56.0 fL 38.5-51.6 H 20648-2) RDW-CV (test code = 21.9 % 12.1-15.4 H 788-0) PLT (test code = See_Comment [Automated 777-3) message] The system which generated this result transmit tennille reference range : 150 - 328 10*3/ ?L. The reference range was not u sed to interpret th is result as normal/abnormal . MPV (test code = 11.4 fL 9.8-13 38322-3) NRBC/100 WBC (test See_Comment [Automat ed code = 0304509622) message] The system which generated this result transmit tennille reference range : 0.0 - 10.0 /100 WBCs. The reference range was not used to interpret this result as normal/abnormal . NRBC x10^3 (test code <0.01 See_Comment [Auto mated = 0205706294) message] The system which generated this result transmit tennille reference range : 10*3/?L. The reference range was not used to interpret this result as normal/abnormal . SEG % (test code = 88 % 33-76 H 14335-9) BAND % (test code = 3 % 0-1 H 93444-3) LYMPH % (test code = 6 % 14-54 L 98795-8) MONO % (test code = 3 % 0-4 22764-4) ANC (test code = 12.63 10*3/uL 1.99-6.95 H 8152002445) YVES CELLS (test code 2+ See_Comment A [Auto mated = 90-9) message] The system which generated this result transmit tennille reference range : (none). The reference range was not used to interpret this result as normal/abnormal . ELLIPTO/OVAL (test 2+ See_Comment A [Automat ed code = 87499-2) message] The system which generated this result transmit tennille reference range : (none). The reference range was not used to interpret this result as normal/abnormal . SCHISTOCYTES (test 1+ A code = 800-3) TOXIC CHANGES (test Present A code = 803-7) PLT ESTIMATE (test Normal Normal code = 9317-9) Lab Interpretation Abnormal (test code = 32414-2) [facility] METABOLIC PANEL (NA, K, CL, CO2, GLUCOSE, BUN, CREATININE, CA)2019-09-04 11:26:00 Test Item Value Reference Range Interpretation Comments NA (test code = 136 mmol/L 135-145 5824901718) K (test code = 3.4 mmol/L 3.5-5 L 4634548123) CL (test code = 103 mmol/L 98-108 0291735254) CO2 TOTAL (test code = 26 mmol/L 23-31 3747072901) AGAP (test code = 2-16 3889709487) BUN (test code = 42 mg/dL 7-23 H 9264121922) GLUCOSE (test code = 184 mg/dL 70-110 H 3633585845) CREATININE (test code = 1.14 mg/dL 0.6-1.25 9331895484) CALCIUM (test code = 8.0 mg/dL 8.6-10.6 L 9987160420) eGFR Calculation mL/min/1.73m2 (Non-) (test code = 6324450437) eGFR Calculation mL/min/1.73m2 () (test code = 0836807790) JUAN LUIS (test code = JUAN LUIS) [...] tests). Lab Interpretation Abnormal (test code = 33277-6) [facility] Test Item Value Reference Range Interpretation Comments MAGNESIUM (test code = 0846879121) 2.0 mg/dL 1.7-2.4 Lab Interpretation (test code = Normal 79217-3) [facility] GLUCOSE (AUTOMATED)2019-09-04 11:05:00 Test Item Value Reference Range Interpretation Comments POCT GLU (test code = 0324950370) 202 mg/dL 70-110 H Lab Interpretation (test code = Abnormal 30641-1) [facility] GLUCOSE (AUTOMATED)2019-09-04 09:12:00 Test Item Value Reference Range Interpretation Comments POCT GLU (test code = 0066902998) 190 mg/dL 70-110 H Lab Interpretation (test code = Abnormal 51613-3) [facility] GLUCOSE (AUTOMATED)2019-09-04 05:59:00 Test Item Value Reference Range Interpretation Comments POCT GLU (test code = 4480695981) 144 mg/dL 70-110 H Lab Interpretation (test code = Abnormal 01433-0) [facility] GLUCOSE (AUTOMATED)2019-09-04 03:37:00 Test Item Value Reference Range Interpretation Comments POCT GLU (test code = 2044253828) 138 mg/dL 70-110 H Lab Interpretation (test code = Abnormal 78301-7) [facility] GLUCOSE (AUTOMATED)2019-09-04 02:36:00 Test Item Value Reference Range Interpretation Comments POCT GLU (test code = 54 mg/dL 70-110 L Notifi ed Provider [id number]) Lab Interpretation (test Abnormal code = 69998-6) [facility] GLUCOSE (AUTOMATED)2019-09-04 02:35:00 Test Item Value Reference Range Interpretation Comments POCT GLU (test code = 5875331295) 137 mg/dL 70-110 H Lab Interpretation (test code = Abnormal 49711-9) [facility] GLUCOSE (AUTOMATED)2019-09-03 23:29:00 Test Item Value Reference Range Interpretation Comments POCT GLU (test code = 7843754322) 68 mg/dL 70-110 L Lab Interpretation (test code = Abnormal 80732-2) [facility] GLUCOSE (AUTOMATED)2019-09-03 23:06:00 Test Item Value Reference Range Interpretation Comments POCT GLU (test code = 3352882896) 69 mg/dL 70-110 L Lab Interpretation (test code = Abnormal 14622-7) [facility] [id number] 22:57:22 Mild residual atelectasis. No definite pneumothorax. [...] venous catheter sheath terminates in the mid SVC.[facility] GLUCOSE (AUTOMATED)2019-09-03 17:30:00 Test Item Value Reference Range Interpretation Comments POCT GLU (test code = 3676308818) 108 mg/dL 70-110 Lab Interpretation (test code = Normal 23424-6) [facility] [id number] 15:06:00EXAM: XR CHEST 1 VW HISTORY: s/p cabg COMPARISON: None. FINDINGS: Chest tubes drain the pleural space on each side, and a mediastinal drainis in the expected position. The [place] catheter was removed. The tip ofthe right IJ line is in the superior vena cava ?The heart is upper limit ofnormal in size or slightly enlarged to the left, probably the latter. Thelungs are moderately well expanded and clear except for very minor hilarvascular congestion. No pleural effusion or pneumothorax is detected.[facility], Radiant Results Inft 09/03/2019 9:07 AM CSTEXAM: XR CHEST 1 VWHISTORY: s/p cabg COMPARISON: None.FINDINGS:Chest tubes drain the pleural space on each side, and a mediastinal drainis in theexpected position. The [place] catheter was removed. The tip ofthe right IJ line is in the superior vena cava The heart is upper limit ofnormal in size or slightly enlarged to the left, probably thelatter. Thelungs are moderately well expanded and clear except for very minor hilarvascular congestion. No pleural effusion or pneumothorax is detected.[facility] GLUCOSE (AUTOMATED)2019-09-03 14:42:00 Test Item Value Reference Range Interpretation Comments POCT GLU (test code = 136 mg/dL 70-110 H Notifi ed Provider [id number]) Lab Interpretation (test Abnormal code = 39705-5) [facility] WITH [id number] 10:31:00 Test Item Value Reference Range Interpretation [...] (test code = 53.7 fL 38.5-51.6 H 09050-2) RDW-CV (test code = 21.4 % 12.1-15.4 H 788-0) PLT (test code = See_Comment [Automated 777-3) message] The system which generated this result transmit tennille reference range : 150 - 328 10*3/ ?L. The reference range was not u sed to interpret th is result as normal/abnormal . MPV (test code = 11.5 fL 9.8-13 08630-5) NRBC/100 WBC (test See_Comment [Automat ed code = 3709879054) message] The system which generated this result transmit tennille reference range : 0.0 - 10.0 /100 WBCs. The reference range was not used to interpret this result as normal/abnormal . NRBC x10^3 (test code <0.01 See_Comment [Auto mated = 8455936375) message] The system which generated this result transmit tennille reference range : 10*3/?L. The reference range was not used to interpret this result as normal/abnormal . GRAN MAT (NEUT) % 84.6 % (test code = 770-8) IMM GRAN % (test code 0.60 % = 0117986110) LYMPH % (test code = 4.2 % 736-9) MONO % (test code = 10.5 % 5905-5) EOS % (test code = 0.0 % 713-8) BASO % (test code = 0.1 % 706-2) GRAN MAT x10^3(ANC) 14.72 10*3/uL 1.99-6.95 H (test code = 7805429096) IMM GRAN x10^3 (test 0.11 10*3/uL 0-0.06 H code = 9881784192) LYMPH x10^3 (test code 0.74 10*3/uL 1.09-3.23 L = 731-0) MONO x10^3 (test code 1.83 10*3/uL 0.36-1.02 H = 742-7) EOS x10^3 (test code = <0.03 0.06-0.53 L 711-2) BASO x10^3 (test code <0.03 0.01-0.09 = 704-7) BASO STIPPLING (test Present A code = 703-9) SCHISTOCYTES (test 1+ A code = 800-3) Lab Interpretation Abnormal (test code = 71303-1) [facility] METABOLIC PANEL (NA, K, CL, CO2, GLUCOSE, BUN, CREATININE, CA)2019-09-03 10:19:00 Test Item Value Reference Range Interpretation Comments NA (test code = 137 mmol/L 135-145 1372271041) K (test code = 4.0 mmol/L 3.5-5 6502975579) CL (test code = 104 mmol/L 98-108 9279127744) CO2 TOTAL (test code = 24 mmol/L 23-31 4193015677) AGAP (test code = 2-16 4382298820) BUN (test code = 51 mg/dL 7-23 H 9992108898) GLUCOSE (test code = 204 mg/dL 70-110 H 5683203184) CREATININE (test code = 1.72 mg/dL 0.6-1.25 H 9436671728) CALCIUM (test code = 8.6 mg/dL 8.6-10.6 2227550236) eGFR Calculation mL/min/1.73m2 (Non-) (test code = 1692271644) eGFR Calculation mL/min/1.73m2 () (test code = 0634330762) JUAN LUIS (test code = JUAN LUIS) [...] tests). Lab Interpretation Abnormal (test code = 84119-0) [facility] Test Item Value Reference Range Interpretation Comments MAGNESIUM (test code = 4241279881) 2.5 mg/dL 1.7-2.4 H Lab Interpretation (test code = Abnormal 01432-8) [facility] GLUCOSE (AUTOMATED)2019-09-03 09:37:00 Test Item Value Reference Range Interpretation Comments POCT GLU (test code = 283 mg/dL 70-110 H Notifi ed Provider [id number]) Lab Interpretation (test Abnormal code = 67594-0) [facility] GLUCOSE (AUTOMATED)2019-09-03 09:12:00 Test Item Value Reference Range Interpretation Comments POCT GLU (test code = 1717550394) 240 mg/dL 70-110 H Lab Interpretation (test code = Abnormal 81220-7) [facility] GLUCOSE (AUTOMATED)2019-09-03 06:11:00 Test Item Value Reference Range Interpretation Comments POCT GLU (test code = 2145068443) 309 mg/dL 70-110 H Lab Interpretation (test code = Abnormal 23316-4) [facility] GLUCOSE (AUTOMATED)2019-09-02 22:21:00 Test Item Value Reference Range Interpretation Comments POCT GLU (test code = 7306152753) 281 mg/dL 70-110 H Lab Interpretation (test code = Abnormal 68175-1) [facility] GLUCOSE (AUTOMATED)2019-09-02 18:57:00 Test Item Value Reference Range Interpretation Comments POCT GLU (test code = 9142115439) 244 mg/dL 70-110 H Lab Interpretation (test code = Abnormal 34363-6) [facility]A Screen by Britney [id number] 17:19:00 Test Item Value Reference Range Interpretation Comments MSSA Screen by Britney MTZ (test code Negative Negative = 00115-6) MRSA/MSSA Positive? (test code = No No 5719668465) Lab Interpretation (test code = Normal 44802-0) [facility] 1 [id number] 15:38:43EXAM: XR CHEST 1 VW HISTORY: s/p open heart surgery COMPARISON: None. FINDINGS: The heart is slightly enlarged, not different than noted previously. Thetip of the [place] catheter is in the main pulmonary artery. [...] different than noted previously. Thetip of the [place] catheter is in the main pulmonary artery. A chest tubedrains the pleural space on the right and a mediastinal drain is in place.The endotracheal tube was removed. The chest tube on the left was removed.The lungs are moderately well expanded and clear.[facility] GLUCOSE (AUTOMATED)2019-09-02 13:46:00 Test Item Value Reference Range Interpretation Comments POCT GLU (test code = 1385250995) 157 mg/dL 70-110 H Lab Interpretation (test code = Abnormal 36545-1) [facility] GLUCOSE (AUTOMATED)2019-09-02 10:17:00 Test Item Value Reference Range Interpretation Comments POCT GLU (test code = 3695754475) 149 mg/dL 70-110 H Lab Interpretation (test code = Abnormal 23993-6) [facility] GLUCOSE (AUTOMATED)2019-09-02 10:17:00 Test Item Value Reference Range Interpretation Comments POCT GLU (test code = 0322543806) 109 mg/dL 70-110 Lab Interpretation (test code = Normal 85673-6) [facility] 07:38:00 Test Item Value Reference Range Interpretation Comments MAGNESIUM (test code = 2702980960) 2.6 mg/dL 1.7-2.4 H Lab Interpretation (test code = Abnormal 67781-7) [facility] (NA, K, CL, CO2, GLUCOSE, BUN, CREATININE, CA)2019-09-02 07:38:00 Test Item Value Reference Range Interpretation Comments NA (test code = 137 mmol/L 135-145 4404291046) K (test code = 4.6 mmol/L 3.5-5 3372149357) CL (test code = 108 mmol/L 98-108 9969604462) CO2 TOTAL (test code = 23 mmol/L 23-31 6397122197) AGAP (test code = 2-16 3900436550) BUN (test code = 40 mg/dL 7-23 H 2312928447) GLUCOSE (test code = 120 mg/dL 70-110 H 9559666699) CREATININE (test code = 1.72 mg/dL 0.6-1.25 H 9486505274) CALCIUM (test code = 8.1 mg/dL 8.6-10.6 L 2517048692) eGFR Calculation mL/min/1.73m2 (Non-) (test code = 2178738962) eGFR Calculation mL/min/1.73m2 () (test code = 7041704090) JUAN LUIS (test code = JUAN LUIS) [...] tests). Lab Interpretation Abnormal (test code = 85685-0) [facility] 07:38:00 Test Item Value Reference Range Interpretation Comments PHOSPHORUS (test code = 4589686361) 4.5 mg/dL 2.5-5 Lab Interpretation (test code = Normal 51779-6) [facility] (86566[facility] (ALB,T.PRO,BILI T,BU/BC,ALT,AST,ALK PHOS)2019-09-02 07:38:00 Test Item Value Reference Range Interpretation Comments TOTAL BILI (test code = 5029562576) 0.2 mg/dL 0.1-1.1 BILI UNCON (test code = 4133540421) 0.2 mg/dL 0.1-1.1 BILI CONJ (test code = 1270394919) 0.0 mg/dL 0-0.3 T PROTEIN (test code = 7455187465) 4.7 g/dL 6.3-8.2 L ALBUMIN (test code = 2480622082) 2.4 g/dL 3.5-5 L ALK PHOS (test code = 9483316638) 34 U/L 34-122 ALTv (test code = 1742-6) 15 U/L 5-50 AST(SGOT) (test code = 4225926837) 43 U/L 13-40 H Lab Interpretation (test code = Abnormal 90079-8) [facility]+COOX+NA+K+GLU+CA2+2019-09-02 07:30:00 Test Item Value Reference Range Interpretation Comments PH (test code = 2) 7.35-7.45 PCO2 (test code = See_Comment [Automat ed message] 2472349429) The system [employer] generated this result transmit tennille reference range : 35 - 45 mmHg. The reference range was not used to interpret this result as normal/abnormal . PO2 (test code = See_Comment H [Automated message] 5402340243) The system [employer] generated this result transmit tennille reference range : 80 - 100 mmHg. The reference range was not used to interpret this result as normal/abnormal . HCO3 (test code = See_Comment L [Automate d message] 3389994020) The system [employer] generated this result transmit tennille reference range : 22 - 26 mEq/L. The reference range was not used to interpret this result as normal/abnormal . BE (test code = See_Comment L [Automated message] 6124175694) The system [employer] generated this result transmit tenn[place] reference range : -3.0 - 3.0 mEq/ L. The reference r christine was not used to interpret this result as normal/abnormal . THB (test code = 9.6 g/dL 13.5-18 L 9304358387) %O2HB (test code = 97.8 % 94-99 1546554456) %COHB ART (test code = 0.3 % 0-1.5 2422779978) %METHB ART (test code = 0.3 % 0.4-1.5 L 3976530504) VOL%O2 ART (test code = 13.5 % 15-23 L 4801515843) NA (test code = 135 mmol/L 135-145 9389985819) K+ (test code = 4.4 mmol/L 3.5-5 3870388326) AC CA IONZ (test code = 5.00 mg/dL 4.5-5.3 9142877831) GLUCOSE (test code = 117 mg/dL 70-110 H 7861658074) Lab Interpretation Abnormal (test code = 81606-2) [facility] / [id number] 07:28:00 Test Item Value Reference Range Interpretation Comments WBC (test code = 6690-2) See_Comment H [A utomated message] The system [employer] generated this result transmit tennille reference range : 4.20 - 10.70 10*3/?L. The reference range was not used to interpret this result as normal/abnormal . RBC (test code = 789-8) See_Comment L [Au tomated message] The system [employer] generated this result transmit tennille reference range [...] 777-3) See_Comment [Au tomated message] The system [employer] generated this result transmit tennille reference range : 150 - 328 10*3/?L. The reference range was not used to interpret this result as normal/abnormal . MPV (test code = 11.1 fL 9.8-13 75088-5) RDW-CV (test code = 19.5 % 12.1-15.4 H 788-0) RDW-SD (test code = 50.0 fL 38.5-51.6 35956-2) NRBC x10^3 (test code = <0.01 See_Comment [Au tomated message] 5028654325) The system whic h generated this result transmit tennille reference range : 10*3/?L. The reference range was not used to interpret this result as normal/abnormal . NRBC/100 WBC (test code See_Comment [Au tomated message] = 0797336083) The system [facility] generated this result transmit tennille reference range : 0.0 - 10.0 /100 WBC s. The reference r christine was not used to interpret this result as normal/abnormal . IPF % (test code = 1091007917) Lab Interpretation (test Abnormal code = 74844-8) [facility]2019-09-02 06:07:00 Test Item Value Reference Range Interpretation Comments POCT GLU (test code = 1839274777) 183 mg/dL 70-110 H Lab Interpretation (test code = Abnormal 58592-3) [facility] + LACTIC [id number] 03:06:00 Test Item Value Reference Range Interpretation Comments PH (test code = 2) 7.35-7.45 PCO2 (test code = See_Comment L [Automat ed 0318699402) message] The sy stem which generated this result transmitted reference range : 35 - 45 mmHg. The reference range was not used to interpret this result as normal/abnormal . PO2 (test code = See_Comment H [Automated 6299244519) message] The sy stem which generated this result transmitted reference range : 80 - 100 mmHg. The reference range was not used to interpret this result as normal/abnormal . HCO3 (test code = See_Comment L [Automate d 4203038652) message] The sy stem which generated this result transmitted reference range : 22 - 26 mEq/L. The reference range was not used to interpret this result as normal/abnormal . BE (test code = See_Comment L [Automated 9760963939) message] The sy stem which generated this result transmitted reference range : -3.0 - 3.0 mEq/ L. The reference r christine was not used to interpret this result as normal/abnormal . THB (test code = 10.2 g/dL 13.5-18 L 1315612728) %O2HB (test code = 98.1 % 94-99 6308391591) %COHB ART (test code = 0.3 % 0-1.5 3211134314) %METHB ART (test code = 0.3 % 0.4-1.5 L 0692217423) VOL%O2 ART (test code = 14.4 % 15-23 L 2182816626) NA (test code = 134 mmol/L 135-145 L 4026056242) K+ (test code = 4.9 mmol/L 3.5-5 4334720656) AC CA IONZ (test code = 4.90 mg/dL 4.5-5.3 9572145168) GLUCOSE (test code = 176 mg/dL 70-110 H 4734252159) LACTIC ACID (test code 1.62 mmol/L 0.5-2.2 = 4196042246) Lab Interpretation Abnormal (test code = 57263-6) [facility] GLUCOSE (AUTOMATED)2019-09-02 01:41:00 Test Item Value Reference Range Interpretation Comments POCT GLU (test code = 8857566401) 176 mg/dL 70-110 H Lab Interpretation (test code = Abnormal 61611-8) [facility] GLUCOSE (AUTOMATED)2019-09-01 23:56:00 Test Item Value Reference Range Interpretation Comments POCT GLU (test code = 6965024066) 172 mg/dL 70-110 H Lab Interpretation (test code = Abnormal 35433-1) [facility] METABOLIC PANEL (NA, K, CL, CO2, GLUCOSE, BUN, CREATININE, CA)2019-09-01 23:52:00 Test Item Value Reference Range Interpretation Comments NA (test code = 136 mmol/L 135-145 4564380693) K (test code = 5.1 mmol/L 3.5-5 H 5464975149) CL (test code = 106 mmol/L 98-108 6757445624) CO2 TOTAL (test code = 23 mmol/L 23-31 9759299488) AGAP (test code = 2-16 5706090918) BUN (test code = 34 mg/dL 7-23 H 5758940422) GLUCOSE (test code = 147 mg/dL 70-110 H 2916943549) CREATININE (test code = 1.75 mg/dL 0.6-1.25 H 8161457170) CALCIUM (test code = 8.4 mg/dL 8.6-10.6 L 7645364384) eGFR Calculation mL/min/1.73m2 (Non-) (test code = 9360209057) eGFR Calculation mL/min/1.73m2 () (test code = 1089258757) JUAN LUIS (test code = JUAN LUIS) [...] tests). Lab Interpretation Abnormal (test code = 07025-2) [facility] 23:49:00 Test Item Value Reference Range Interpretation Comments MAGNESIUM (test code = 7452369387) 2.3 mg/dL 1.7-2.4 Lab Interpretation (test code = Normal 41352-5) [facility]2020-[facility]18 23:49:00 Test Item Value Reference Range Interpretation Comments PHOSPHORUS (test code = 4707470898) 4.0 mg/dL 2.5-5 Lab Interpretation (test code = Normal 54486-0) [facility])2019-09-01 23:48:00 Test Item Value Reference Range Interpretation Comments POCT GLU (test code = 8994083349) 131 mg/dL 70-110 H Lab Interpretation (test code = Abnormal 72712-6) [facility]2020-02-18 23:48:00 Test Item Value Reference Range Interpretation Comments APTT Patient (test code = See_Comment [ Automated message] 3173-2) The system [employer] generated this result transmitted ref erence range: 26 - 36 Seconds. The re ference range was not u sed to interpret this result as normal/abnor mal. Lab Interpretation (test Normal code = 39402-1) [facility]+COOX+NA+K+GLU+CA2+2019-09-01 23:34:00 Test Item Value Reference Range Interpretation Comments PH (test code = 2) 7.35-7.45 PCO2 (test code = See_Comment [Automat ed message] 1992053188) The system [employer] generated this result transmit tennille reference range : 35 - 45 mmHg. The reference range was not used to interpret this result as normal/abnormal . PO2 (test code = See_Comment H [Automated message] 0364632410) The system [employer] generated this result transmit tennille reference range : 80 - 100 mmHg. The reference range was not used to interpret this result as normal/abnormal . HCO3 (test code = See_Comment L [Automate d message] 4352691081) The system [employer] generated this result transmit tennille reference range : 22 - 26 mEq/L. The reference range was not used to interpret this result as normal/abnormal . BE (test code = See_Comment L [Automated message] 1180430954) The system [employer] generated this result transmit tennille reference range : -3.0 - 3.0 mEq/ L. The reference r christine was not used to interpret this result as normal/abnormal . THB (test code = 10.0 g/dL 13.5-18 L 1918108780) %O2HB (test code = 98.0 % 94-99 4230714547) %COHB ART (test code = 0.3 % 0-1.5 2391531040) %METHB ART (test code = 0.2 % 0.4-1.5 L 8312644710) VOL%O2 ART (test code = 14.1 % 15-23 L 4326038042) NA (test code = 134 mmol/L 135-145 L 5191051510) K+ (test code = 5.0 mmol/L 3.5-5 8116417494) AC CA IONZ (test code = 4.90 mg/dL 4.5-5.3 3974561808) GLUCOSE (test code = 151 mg/dL 70-110 H 1371458463) Lab Interpretation Abnormal (test code = 82046-1) [facility] WITH [id number] 21:06:00 Test Item Value Reference Range Interpretation [...] (test code = 51.8 fL 38.5-51.6 H 21634-3) RDW-CV (test code = 20.2 % 12.1-15.4 H 788-0) PLT (test code = See_Comment [Automated 777-3) message] The system which generated this result transmit tennille reference range : 150 - 328 10*3/ ?L. The reference range was not u sed to interpret th is result as normal/abnormal . MPV (test code = 11.7 fL 9.8-13 74032-5) NRBC/100 WBC (test See_Comment [Automat ed code = 5099145262) message] The system which generated this result transmit tennille reference range : 0.0 - 10.0 /100 WBCs. The reference range was not used to interpret this result as normal/abnormal . NRBC x10^3 (test code <0.01 See_Comment [Auto mated = 2312172782) message] The system which generated this result transmit tennille reference range : 10*3/?L. The reference range was not used to interpret this result as normal/abnormal . GRAN MAT (NEUT) % 87.5 % (test code = 770-8) IMM GRAN % (test code 0.80 % = 1038425607) LYMPH % (test code = 4.4 % 736-9) MONO % (test code = 6.6 % 5905-5) EOS % (test code = 0.4 % 713-8) BASO % (test code = 0.3 % 706-2) GRAN MAT x10^3(ANC) 12.12 10*3/uL 1.99-6.95 H (test code = 6907977266) IMM GRAN x10^3 (test 0.11 10*3/uL 0-0.06 H code = 7519728354) LYMPH x10^3 (test code 0.61 10*3/uL 1.09-3.23 L = 731-0) MONO x10^3 (test code 0.92 10*3/uL 0.36-1.02 = 742-7) EOS x10^3 (test code = 0.05 10*3/uL 0.06-0.53 L 711-2) BASO x10^3 (test code 0.04 10*3/uL 0.01-0.09 = 704-7) Lab Interpretation Abnormal (test code = 69282-2) [facility] LACTIC [id number] 21:06:00 Test Item Value Reference Range Interpretation Comments PH (test code = 2) 7.35-7.45 PCO2 (test code = See_Comment [Automat ed 9572732576) message] The sy stem which generated this result transmitted reference range : 35 - 45 mmHg. The reference range was not used to interpret this result as normal/abnormal . PO2 (test code = See_Comment H [Automated 4948817604) message] The sy stem which generated this result transmitted reference range : 80 - 100 mmHg. The reference range was not used to interpret this result as normal/abnormal . HCO3 (test code = See_Comment [Automate d 8268933120) message] The sy stem which generated this result transmitted reference range : 22 - 26 mEq/L. The reference range was not used to interpret this result as normal/abnormal . BE (test code = See_Comment [Automated 6431124270) message] The sy stem which generated this result transmitted reference range : -3.0 - 3.0 mEq/ L. The reference r christine was not used to interpret this result as normal/abnormal . THB (test code = 9.9 g/dL 13.5-18 L 6983854020) %O2HB (test code = 98.0 % 94-99 4783418749) %COHB ART (test code = 0.3 % 0-1.5 6862196858) %METHB ART (test code = 0.1 % 0.4-1.5 L 8118701342) VOL%O2 ART (test code = 14.0 % 15-23 L 5648190636) NA (test code = 135 mmol/L 135-145 4868887948) K+ (test code = 4.5 mmol/L 3.5-5 9489317145) AC CA IONZ (test code = 4.60 mg/dL 4.5-5.3 7573060214) GLUCOSE (test code = 124 mg/dL 70-110 H 4570297844) LACTIC ACID (test code 0.89 mmol/L 0.5-2.2 = 4149306721) Lab Interpretation Abnormal (test code = 70302-5) [facility] Metabolic Panel (NA, K, CL, CO2, GLUCOSE, BUN, CREATININE, CA)2019-09-01 21:02:00 Test Item Value Reference Range Interpretation Comments NA (test code = 137 mmol/L 135-145 9622735388) K (test code = 4.3 mmol/L 3.5-5 4780455124) CL (test code = 107 mmol/L 98-108 3829814995) CO2 TOTAL (test code = 24 mmol/L 23-31 9352128627) AGAP (test code = 2-16 9091376739) BUN (test code = 31 mg/dL 7-23 H 5400051801) GLUCOSE (test code = 106 mg/dL 70-110 0573518990) CREATININE (test code = 1.68 mg/dL 0.6-1.25 H 8465712570) CALCIUM (test code = 7.0 mg/dL 8.6-10.6 L 8770890933) eGFR Calculation mL/min/1.73m2 (Non-) (test code = 9722775935) eGFR Calculation mL/min/1.73m2 () (test code = 7359602378) JUAN LUIS (test code = JUAN LUIS) [...] tests). Lab Interpretation Abnormal (test code = 58011-1) [facility] Test Item Value Reference Range Interpretation Comments MAGNESIUM (test code = 0786047413) 1.9 mg/dL 1.7-2.4 Lab Interpretation (test code = Normal 29252-3) [facility]02:00 Test Item Value Reference Range Interpretation Comments PHOSPHORUS (test code = 1748203156) 3.1 mg/dL 2.5-5 Lab Interpretation (test code = Normal 19468-7) [facility] / [id number] 20:59:00 Test Item Value Reference Range Interpretation [...] tions. Lab Interpretation (test Abnormal code = 02615-2) [facility] 20:59:00 Test Item Value Reference Range Interpretation Comments APTT Patient (test code See_Comment H [Au tomated message] = 3173-2) The system [employer]ue generated this result transmitted ref erence range: 26 - 36 Seconds. The reference range was not used to int erpret this result as normal/abnormal . Lab Interpretation (test Abnormal code = 31354-2) [facility] Packed RBC (in units), 2 Units 2019-09-01 20:58:25 Test Item Value Reference Range Interpretation Comments Cross Match Result Compatible (test code = 4409) ISBT Blood Type Code (test code = 580649) Unit Blood Type (test A Pos code = 4410) Unit Number (test [id number] code = 4411) Blood Expiration Date & Time (test code = 403709) Status Information Issued (test code = 4412) Product Red Blood Cells Identification (test code = 4413) Product Code (test [id number] Performed at [facility] code = 4414) Laboratory Services - [facility] Blood [address] [place] [phone] Free: [phone] A No. [id number] [facility] 1 View (on admission)2019-09-01 19:53:23 Lines and tubes in expected position Lungs are expanded and clear with mild perihilar congestion. XR CHEST 1 VW HISTORY: s/p open heart surgery COMPARISON: 08/22/2019 FINDINGS: Lines and tubes: The endotracheal tube terminates 4.6 cm from amol.NG tube extends to stomach.Right IJ [place] terminates at proximal right PA.Mediastinal and chest [...] from amol.NG tube extends to stomach.Right IJ [place] terminates at proximal right PA.Mediastinal and chest tubes in place.Lungs and pleura: Unremarkable with mild perihilar congestion. No pleuraleffusion or pneumothorax.Mediastinum and heart: UnremarkableBones; unre markable status post medial sternotomy.IMPRESSIONLines and tubes in expected positionLungs are expanded and clear with mild perihilar congestion.[facility]ABG+COOX+NA+K+GLU+CA2+2019-09-01 19:30:00 Test Item Value Reference Range Interpretation Comments PH (test code = 2) 7.35-7.45 PCO2 (test code = See_Comment [Automat ed message] 3995939836) The system DocVue generated this result transmit tennille reference range : 35 - 45 mmHg. The reference range was not used to interpret this result as normal/abnormal . PO2 (test code = See_Comment H [Automated message] 0316220233) The system [employer] generated this result transmit tennille reference range : 80 - 100 mmHg. The reference range was not used to interpret this result as normal/abnormal . HCO3 (test code = See_Comment [Automate d message] 4087051795) The system [employer] generated this result transmit tennille reference range : 22 - 26 mEq/L. The reference range was not used to interpret this result as normal/abnormal . BE (test code = See_Comment [Automated message] 9733099877) The system [employer] generated this result transmit tennille reference range : -3.0 - 3.0 mEq/ L. The reference r christine was not used to interpret this result as normal/abnormal . THB (test code = 9.9 g/dL 13.5-18 L 1034341794) %O2HB (test code = 98.8 % 94-99 9858451298) %COHB ART (test code = 0.0 % 0-1.5 3169535442) %METHB ART (test code = 0.3 % 0.4-1.5 L 1160850335) VOL%O2 ART (test code = 14.4 % 15-23 L 3503371129) NA (test code = 135 mmol/L 135-145 5958691204) K+ (test code = 4.3 mmol/L 3.5-5 7314699645) AC CA IONZ (test code = 4.40 mg/dL 4.5-5.3 L 7360004573) GLUCOSE (test code = 106 mg/dL 70-110 4216836033) Lab Interpretation Abnormal (test code = 01025-0) [facility] ACUTE CARE [id number] 18:13:00 Test Item Value Reference Range Interpretation Comments PH (test code = 2) 7.35-7.45 PCO2 (test code = See_Comment H [Automat ed message] 9778661489) The system DocVue generated this result transmit tennille reference range : 35 - 45 mmHg. The reference range was not used to interpret this result as normal/abnormal . PO2 (test code = See_Comment H [Automated message] 7884729225) The system [employer] generated this result transmit tennille reference range : 80 - 100 mmHg. The reference range was not used to interpret this result as normal/abnormal . BE (test code = See_Comment [Automated message] 9930333544) The system [employer] generated this result transmit tennille reference range : -3.0 - 3.0 mEq/ L. The reference r christine was not used to interpret this result as normal/abnormal . HCO3 (test code = See_Comment H [Automate d message] 4954528296) The system [employer] generated this result transmit tennille reference range : 22 - 26 mEq/L. The reference range was not used to interpret this result as normal/abnormal . %O2HB (test code = 100.0 % 95-98 H 7122503553) NA (test code = 137 mmol/L 135-145 2250132458) K+ (test code = 4.3 mmol/L 3.5-5 6437422653) AC CA IONZ (test code = 4.40 mg/dL 4.5-5.3 L 5660770281) GLUCOSE (test code = 80 mg/dL 70-110 3298815814) AC Hematocrit (test See_Comment LL [Automa tennille message] code = 7251942309) The syste m which generated this result transmit tennille reference range : 40 - 54 VOL %. The reference range was not used to interpret this result as normal/abnormal . THB (test code = 8.2 g/dL 13.5-18 LL 2463279343) AC TC02 (test code = 28 mmol/L See_Comment H [Autom ated message] 7667125098) The system [employer]ue generated this result transmit tennille reference range : 23-27 mmol/L. T he reference range was not used to interpret this result as normal/abnormal . Lab Interpretation Abnormal (test code = 12026-0) [facility]IGH [id number] 17:58:00 Test Item Value Reference Range Interpretation Comments ACTHR (test code = See_Comment [Automat ed message] 2835384715) The system Doc[employer]ue generated this result transmitted ref erence range: 96 - 152 Seconds. The re ference range was not u sed to interpret this result as normal/abnor mal. Lab Interpretation (test Normal code = 82329-2) [facility]-02-18 17:39:00 Test Item Value Reference Range Interpretation Comments APTT Patient (test code >150 See_Comment HH [Au tomated message] = 3173-2) The system Doc[employer]ue generated this result transmitted ref erence range: 26 - 36 Seconds. The reference range was not used to int erpret this result as normal/abnormal . Lab Interpretation (test Abnormal code = 43282-3) [facility]EN2020-02-18 17:32:00 Test Item Value Reference Range Interpretation Comments Fibrinogen (test code = 6689436625) 350 mg/dL 167-453 Lab Interpretation (test code = Normal 00321-3) [facility]PROT[facility] / [id number] 17:32:00 Test Item Value Reference Range Interpretation Comments PROTIME PATIENT (test See_Comment H [Auto mated message] code = 5964-2) The system [facility] generated this result transmitted ref erence range: 10.1 - 1 2.6 Seconds. The reference range was not used to int erpret this result as normal/abnormal . INR (test code = 6301-6) Nor mal INR <1.1; Warfarin Therap eutic range 2.0 to 3. 0 or 2.5 to 3.5, dep ending upon the indica tions. Lab Interpretation (test Abnormal code = 46578-0) [facility] [id number] 17:17:00 Test Item Value Reference Range Interpretation Comments PH (test code = 2) 7.35-7.45 L PCO2 (test code = See_Comment H [Automat ed message] 0694788971) The system [facility] generated this result transmit tennille reference range : 35 - 45 mmHg. The reference range was not used to interpret this result as normal/abnormal . PO2 (test code = See_Comment H [Automated message] 8179927574) The system [facility] [employer] generated this result transmit tennille reference range : 80 - 100 mmHg. The reference range was not used to interpret this result as normal/abnormal . BE (test code = See_Comment [Automated message] 4329480178) The system [facility] generated this result transmit tennille reference range : -3.0 - 3.0 mEq/ L. The reference r christine was not used to interpret this result as normal/abnormal . HCO3 (test code = See_Comment H [Automate d message] 2636532327) The system [facility] generated this result transmit tennille reference range : 22 - 26 mEq/L. The reference range was not used to interpret this result as normal/abnormal . %O2HB (test code = 100.0 % 95-98 H 8819363586) NA (test code = 140 mmol/L 135-145 6082870701) K+ (test code = 4.2 mmol/L 3.5-5 1268357262) AC CA IONZ (test code = 4.20 mg/dL 4.5-5.3 L 8439428932) GLUCOSE (test code = 92 mg/dL 70-110 9331888472) AC Hematocrit (test See_Comment LL [Automa tennille message] code = 1654354964) The syste m which generated this result transmit tennille reference range : 40 - 54 VOL %. The reference range was not used to interpret this result as normal/abnormal . THB (test code = 7.5 g/dL 13.5-18 LL 3987598749) AC TC02 (test code = 29 mmol/L See_Comment H [Autom ated message] 2687836249) The system [employer] generated this result transmit tennille reference range : 23-27 mmol/L. T he reference range was not used to interpret this result as normal/abnormal . Lab Interpretation Abnormal (test code = 70825-9) [facility]MAT[facility]IT2020-02-18 17:16:00 Test Item Value Reference Range Interpretation Comments HCT (test code = 4544-3) 25.6 % 38.4-49.3 L Lab Interpretation (test code = Abnormal 67963-7) [facility]HEMOGLOBIN2020-02-18 17:16:00 Test Item Value Reference Range Interpretation Comments HGB (test code = 718-7) 8.0 g/dL 12.2-16.4 L Lab Interpretation (test code = Abnormal 26811-1) [facility] HospitalPLATELET [id number] 17:16:00 Test Item Value Reference Range Interpretation Comments PLT (test code = 777-3) See_Comment [Au tomated message] The system DocVue generated this result transmitted ref erence range: 150 - 32 8 10*3/?L. The re ference range was not u sed to interpret this result as normal/abnor mal. Lab Interpretation (test Normal code = 98841-8) [facility]IGH [id number] 17:04:00 Test Item Value Reference Range Interpretation Comments ACTHR (test code = See_Comment H [Automat ed message] 7394235301) The system [employer] generated this result transmitted ref erence range: 96 - 152 Seconds. The reference range was not used to int erpret this result as normal/abnormal . Lab Interpretation (test Abnormal code = 14033-9) [facility] ACUTE CARE [id number] 16:52:00 Test Item Value Reference Range Interpretation Comments PH (test code = 2) 7.35-7.45 PCO2 (test code = See_Comment [Automat ed message] 2521257044) The system [employer] generated this result transmit tennille reference range : 35 - 45 mmHg. The reference range was not used to interpret this result as normal/abnormal . PO2 (test code = See_Comment H [Automated message] 4184434756) The system [employer] generated this result transmit tennille reference range : 80 - 100 mmHg. The reference range was not used to interpret this result as normal/abnormal . BE (test code = See_Comment [Automated message] 8588371212) The system [employer]ue generated this result transmit tennille reference range : -3.0 - 3.0 mEq/ L. The reference r christine was not used to interpret this result as normal/abnormal . HCO3 (test code = See_Comment H [Automate d message] 9577454827) The system [employer] generated this result transmit tennille reference range : 22 - 26 mEq/L. The reference range was not used to interpret this result as normal/abnormal . %O2HB (test code = 100.0 % 95-98 H 6595004235) NA (test code = 138 mmol/L 135-145 2049624966) K+ (test code = 4.7 mmol/L 3.5-5 2209019180) AC CA IONZ (test code = 4.10 mg/dL 4.5-5.3 L 6796171781) GLUCOSE (test code = 143 mg/dL 70-110 H 8926564996) AC Hematocrit (test See_Comment LL [Automa tennille message] code = 0968625893) The syste m which generated this result transmit tennille reference range : 40 - 54 VOL %. The reference range was not used to interpret this result as normal/abnormal . THB (test code = 8.2 g/dL 13.5-18 LL 5668464572) AC TC02 (test code = 29 mmol/L See_Comment H [Autom ated message] 9293869117) The system Doc[employer] generated this result transmit tennille reference range : 23-27 mmol/L. T he reference range was not used to interpret this result as normal/abnormal . Lab Interpretation Abnormal (test code = 25401-1) [facility] ACT HIGH [id number] 16:41:00 Test Item Value Reference Range Interpretation Comments ACTHR (test code = See_Comment H [Automat ed message] 8882545213) The system Doc[employer]ue generated this result transmitted ref erence range: 96 - 152 Seconds. The reference range was not used to int erpret this result as normal/abnormal . Lab Interpretation (test Abnormal code = 44568-6) [facility] ACUTE CARE [id number] 16:20:00 Test Item Value Reference Range Interpretation Comments PH (test code = 2) 7.35-7.45 PCO2 (test code = See_Comment [Automat ed message] 0921152451) The system Doc[employer] generated this result transmit tennille reference range : 35 - 45 mmHg. The reference range was not used to interpret this result as normal/abnormal . PO2 (test code = See_Comment H [Automated message] 7710527499) The system Doc[employer] generated this result transmit tennille reference range : 80 - 100 mmHg. The reference range was not used to interpret this result as normal/abnormal . BE (test code = See_Comment [Automated message] 2332795883) The system [employer] generated this result transmit tennille reference range : -3.0 - 3.0 mEq/ L. The reference r christine was not used to interpret this result as normal/abnormal . HCO3 (test code = See_Comment H [Automate d message] 3303122076) The system Doc[employer]ue generated this result transmit tennille reference range : 22 - 26 mEq/L. The reference range was not used to interpret this result as normal/abnormal . %O2HB (test code = 100.0 % 95-98 H 8436265430) NA (test code = 135 mmol/L 135-145 1336259147) K+ (test code = 4.9 mmol/L 3.5-5 8251768761) AC CA IONZ (test code = 3.80 mg/dL 4.5-5.3 L 4519752577) GLUCOSE (test code = 200 mg/dL 70-110 H 7779956960) AC Hematocrit (test See_Comment L [Automa tennille message] code = 2245742110) The syste m which generated this result transmit tennille reference range : 40 - 54 VOL %. The reference range was not used to interpret this result as normal/abnormal . THB (test code = 8.8 g/dL 13.5-18 L 6827136566) AC TC02 (test code = 29 mmol/L See_Comment H [Autom ated message] 5104913410) The system Doc[employer]ue generated this result transmit tennille reference range : 23-27 mmol/L. T he reference range was not used to interpret this result as normal/abnormal . Lab Interpretation Abnormal (test code = 17210-6) [facility] ACT HIGH [id number] 16:14:00 Test Item Value Reference Range Interpretation Comments ACTHR (test code = See_Comment H [Automat ed message] 5255280230) The system Doc[employer]ue generated this result transmitted ref erence range: 96 - 152 Seconds. The reference range was not used to int erpret this result as normal/abnormal . Lab Interpretation (test Abnormal code = 99766-9) [facility] ACUTE CARE [id number] 15:55:00 Test Item Value Reference Range Interpretation Comments PH (test code = 2) 7.35-7.45 L PCO2 (test code = See_Comment H [Automat ed message] 6193569991) The system Doc[employer]ue generated this result transmit tennille reference range : 35 - 45 mmHg. The reference range was not used to interpret this result as normal/abnormal . PO2 (test code = See_Comment H [Automated message] 2671012029) The system Doc[employer]ue generated this result transmit tennille reference range : 80 - 100 mmHg. The reference range was not used to interpret this result as normal/abnormal . BE (test code = See_Comment [Automated message] 0400193329) The system DocVue generated this result transmit tennille reference range : -3.0 - 3.0 mEq/ L. The reference r christine was not used to interpret this result as normal/abnormal . HCO3 (test code = See_Comment H [Automate d message] 8665602812) The system DocVue generated this result transmit tennille reference range : 22 - 26 mEq/L. The reference range was not used to interpret this result as normal/abnormal . %O2HB (test code = 100.0 % 95-98 H 5289944760) NA (test code = 135 mmol/L 135-145 9385973090) K+ (test code = 5.7 mmol/L 3.5-5 H 0324065545) AC CA IONZ (test code = 3.50 mg/dL 4.5-5.3 L 8881508977) GLUCOSE (test code = 171 mg/dL 70-110 H 0456688926) AC Hematocrit (test See_Comment L [Automa tennille message] code = 3769191332) The syste m which generated this result transmit tennille reference range : 40 - 54 VOL %. The reference range was not used to interpret this result as normal/abnormal . THB (test code = 8.8 g/dL 13.5-18 L 9996774628) AC TC02 (test code = 30 mmol/L See_Comment H [Autom ated message] 2667232081) The system DocVue generated this result transmit tennille reference range : 23-27 mmol/L. T he reference range was not used to interpret this result as normal/abnormal . Lab Interpretation Abnormal (test code = 63530-2) [facility] ACT HIGH [id number] 15:27:00 Test Item Value Reference Range Interpretation Comments ACTHR (test code = See_Comment H [Automat ed message] 4092567574) The system Doc[employer]ue generated this result transmitted ref erence range: 96 - 152 Seconds. The reference range was not used to int erpret this result as normal/abnormal . Lab Interpretation (test Abnormal code = 04697-2) [facility] ACUTE CARE [id number] 15:20:00 Test Item Value Reference Range Interpretation Comments PH (test code = 2) 7.35-7.45 PCO2 (test code = See_Comment H [Automat ed message] 9455991370) The system [employer]ue generated this result transmit tennille reference range : 35 - 45 mmHg. The reference range was not used to interpret this result as normal/abnormal . PO2 (test code = See_Comment H [Automated message] 6482867350) The system Doc[employer]ue generated this result transmit etnnille reference range : 80 - 100 mmHg. The reference range was not used to interpret this result as normal/abnormal . BE (test code = See_Comment H [Automated message] 8543836672) The system DocVue generated this result transmit tennille reference range : -3.0 - 3.0 mEq/ L. The reference r christine was not used to interpret this result as normal/abnormal . HCO3 (test code = See_Comment H [Automate d message] 6114566705) The system DocVue generated this result transmit tennille reference range : 22 - 26 mEq/L. The reference range was not used to interpret this result as normal/abnormal . %O2HB (test code = 100.0 % 95-98 H 7069619010) NA (test code = 135 mmol/L 135-145 3423820311) K+ (test code = 4.5 mmol/L 3.5-5 4486922160) AC CA IONZ (test code = 4.80 mg/dL 4.5-5.3 4002356482) GLUCOSE (test code = 118 mg/dL 70-110 H 5521742884) AC Hematocrit (test See_Comment LL [Automa tennille message] code = 9439353015) The syste m which generated this result transmit tennille reference range : 40 - 54 VOL %. The reference range was not used to interpret this result as normal/abnormal . THB (test code = 7.5 g/dL 13.5-18 LL 1216680132) AC TC02 (test code = 32 mmol/L See_Comment H [Autom ated message] 4177303406) The system [employer] generated this result transmit tennille reference range : 23-27 mmol/L. T he reference range was not used to interpret this result as normal/abnormal . Lab Interpretation Abnormal (test code = 42872-9) [facility] ACT HIGH [id number] 15:16:00 Test Item Value Reference Range Interpretation Comments ACTHR (test code = See_Comment H [Automat ed message] 3833074546) The system Doc[employer]ue generated this result transmitted ref erence range: 96 - 152 Seconds. The reference range was not used to int erpret this result as normal/abnormal . Lab Interpretation (test Abnormal code = 92337-8) [facility] [id number] 15:09:00 Test Item Value Reference Range Interpretation Comments ACTHR (test code = See_Comment H [Automat ed message] 7014464328) The system [employer]ue generated this result transmitted ref erence range: 96 - 152 Seconds. The reference range was not used to int erpret this result as normal/abnormal . Lab Interpretation (test Abnormal code = 16703-0) [facility] Packed RBC (in units), 2 Units 2019-09-01 14:20:50 Test Item Value Reference Range Interpretation Comments Cross Match Result Compatible (test code = 4409) ISBT Blood Type Code (test code = 811216) Unit Blood Type (test A Pos code = 4410) Unit Number (test [id number] code = 4411) Blood Expiration Date & Time (test code = 939102) Status Information Issued (test code = 4412) Product Red Blood Cells Identification (test code = 4413) Product Code (test [id number] Performed at [facility] code = 4414) Laboratory Services - [facility] Blood [address] [place] [phone] Free: [phone] A No. [id number] [facility] ACUTE CARE [id number] 14:13:00 Test Item Value Reference Range Interpretation Comments PH (test code = 2) 7.35-7.45 PCO2 (test code = See_Comment [Automat ed message] 2321470889) The system [employer] generated this result transmit tennille reference range : 35 - 45 mmHg. The reference range was not used to interpret this result as normal/abnormal . PO2 (test code = See_Comment H [Automated message] 6901872906) The system [employer] generated this result transmit tennille reference range : 80 - 100 mmHg. The reference range was not used to interpret this result as normal/abnormal . BE (test code = See_Comment H [Automated message] 0047657407) The system [employer] generated this result transmit tennille reference range : -3.0 - 3.0 mEq/ L. The reference r christine was not used to interpret this result as normal/abnormal . HCO3 (test code = See_Comment H [Automate d message] 1668531780) The system DocVue generated this result transmit tennille reference range : 22 - 26 mEq/L. The reference range was not used to interpret this result as normal/abnormal . %O2HB (test code = 100.0 % 95-98 H [id number]) NA (test code = 135 mmol/L 135-145 9428343753) K+ (test code = 4.2 mmol/L 3.5-5 6173522996) AC CA IONZ (test code = 4.80 mg/dL 4.5-5.3 0728075826) GLUCOSE (test code = 112 mg/dL 70-110 H 3893332874) AC Hematocrit (test See_Comment LL [Automa tennille message] code = 2226240213) The syste m which generated this result transmit tennille reference range : 40 - 54 VOL %. The reference range was not used to interpret this result as normal/abnormal . THB (test code = 6.5 g/dL 13.5-18 LL 1659462142) AC TC02 (test code = 32 mmol/L See_Comment H [Autom ated message] 0372910249) The system DocVue generated this result transmit tennille reference range : 23-27 mmol/L. T he reference range was not used to interpret this result as normal/abnormal . Lab Interpretation Abnormal (test code = 71231-7) [facility] [id number] 13:57:00 Test Item Value Reference Range Interpretation Comments ACTHR (test code = See_Comment L [Automat ed message] 9209835615) The system DocVue generated this result transmitted ref erence range: 96 - 152 Seconds. The reference range was not used to int erpret this result as normal/abnormal . Lab Interpretation (test Abnormal code = 45976-0) [facility] (in units), 4 Units 2019-09-01 12:50:33 Test Item Value Reference Range Interpretation Comments Cross Match Result Compatible (test code = 4409) ISBT Blood Type Code (test code = 485824) Unit Blood Type (test A Pos code = 4410) Unit Number (test [id number] code = 4411) Blood Expiration Date & Time (test code = 159599) Status Information Issued (test code = 4412) Product Red Blood Cells Identification (test code = 4413) Product Code (test [id number] Performed at [facility] code = 4414) Laboratory Services - [facility] [address] [place], [place] [address]Honw Free: [phone] A No. [id number] [facility] GLUCOSE (AUTOMATED)2019-09-01 11:29:00 Test Item Value Reference Range Interpretation Comments POCT GLU (test code = 3665844188) 126 mg/dL 70-110 H Lab Interpretation (test code = Abnormal 24575-8) [facility] GLUCOSE (AUTOMATED)2019-09-01 09:37:00 Test Item Value Reference Range Interpretation Comments POCT GLU (test code = 7918765576) 100 mg/dL 70-110 Lab Interpretation (test code = Normal 26496-6) [facility] GLUCOSE (AUTOMATED)2019-09-01 06:00:00 Test Item Value Reference Range Interpretation Comments POCT GLU (test code = 8281280027) 90 mg/dL 70-110 Lab Interpretation (test code = Normal 57073-6) [facility] GLUCOSE (AUTOMATED)2019-09-01 02:26:00 Test Item Value Reference Range Interpretation Comments POCT GLU (test code = 4985159355) 53 mg/dL 70-110 L Lab Interpretation (test code = Abnormal 41958-1) [facility] GLUCOSE (AUTOMATED)2019-08-31 22:18:00 Test Item Value Reference Range Interpretation Comments POCT GLU (test code = 2326341527) 151 mg/dL 70-110 H Lab Interpretation (test code = Abnormal 19144-6) [facility] - Type and Screen expires at midnight on the 3rd day after it was drawn. A current Type and Screen is required when RBCs are requested. For all other blood products, a Type and Screen performed during the current hospitalization i...2019-08-31 20:48:31 Test Item Value Reference Range Interpretation Comments ABO & RH (test code A Positive Performe d at [facility] = 20) Laboratory Serv [facility] [address] [place], [place] [address]Toll Free: [phone] 266CLIA No. [id number] IAT (test code = Negative Performed a t [facility] 1185) Laboratory Serv ices - [facility] [address] [place], [place] [address]Toll Free: [phone] 266CLIA No. [id number] [facility]2019-08-31 18:07:00 Test Item Value Reference Range Interpretation Comments POCT GLU (test code = 5911524092) 76 mg/dL 70-110 Lab Interpretation (test code = Normal 29212-3) [facility] [id number] 16:26:00 Test Item Value Reference Range Interpretation Comments Case Report (test code Surgical Pathology ? ? = [id number]) ?Case: [id number] ? Authorizing Provider: ?Marlo Osman MD ? ? ? Collected: ? 08/26/2019 0744 ?Ordering Location: ? ? [facility] ? ? ? Received: ?08/26/2019 0923 ? Center [facility] ? Pathologist: ? Ewa Cabrera MD ? Specimens: ? A) - STOMACH, pyloric mass ? B) - ESOPHAGUS, BIOPSY @ 40 CM ? C) - ESOPHAGUS, BOIPSY @ 39 CM ? D) - ESOPHAGUS, BIOPSY @ 38 CM ? E) - ESOPHAGUS, BIOPSY @ 37 CM ? Final Diagnosis (test z5myoUNqHGNiw7ceZPApjY code = 9033794721) FuZzEwMzNcZnRuYmpcdWMx DJsgveAdHTljq7YvF8ZrOb AwMFxhbnNpXGRlZmxhbmcx WXQwBEM6mfNlLOKcHMeeXD PyAAtfLh2hpWIavOusZzEa QOQag3rjjsVZpnwtwOo0n9 orCOQfOpV1bFZeKUsaC8fw vaMseQSgAWMeFUd4jO09MR IkmD4jrRFzSKuoeqWzDiY2 OKwjSKKjWsT1NWVioTApNH OtQ6euRXCoKCixASPxQPqg lBXxWTF8gHvyw0H4nKYtpG SrsWtySmNdQmVuLOFBs4Av GHt8cCdwY9NiDBSwIbH8jO QgUGFyYWdyYXBoIEZvbnQ7 cC72KEykjbA7kMBzy1Nir9 4lq729yL4baDDcWIO0GXUy QKUdkHMvFPZcJVM1HHSqwL GgF7hiLHubNS1nukduWRO4 MFxtYXJndDcyMFxtYXJnYj DvqMKgKJIqoLkeGFooc481 DOQ9SgTgAN4vL7Vpb1T0sB 9maXRcZGVmdGFiNzIwXGZv fw9imWJuHVtcv7RrLAI6nb L8eCGhtUBzJCCoQY20Ylet t2WyXovvRPC3FRHhdkSfi6 Crw7plObSttcQmF1xrA6Uu ZHJoZWFkXHBnYnJkcmZvb3 Xmq3AyqBBzdKt5i7rcGXXu DLXxbHnnv4anQFE6TSGsD5 Q8cAHqz6yhDMcqIPOlsQJ8 ucJgACHbuUBkR9TdpB8aKB zdXY7xwhp4p8tsMvZzVF1o xvwlb8hoKOuqGHGhYJZ2Pb QnTVJpb3XoflbjVuTly4Tq tPTwWPbxB95ze693TFVwcc GiX6goxZWoabqrpSPealke QPeaeyJ9MGCcWZOkSIsoFL YxXGZzMjBcbGFuZzEwMzNc aGljaFxmMVxkYmNoXGYxXG paX9feUsAvJbLvQCcyVIVk LL5sO1GEQNHANYfbTDqSO0 HSZwDOXVLQHHLOG6rSDOQG EK3ARSfpyUHaHUFtCHZnPE GUNZZPDpzUWITXGL8DRIGe S6pQOaAkIKHWIk7GAXtzC0 lXOAAAG5MVQLVWQNvGWFuD QDLGRQRDG6UPCQRXNNenVY PlOPEtDYNaLS4TZxyJYuDH TlZPTFZFRCBCWSBBREVOT0 0KTNloGITmFDVhJQUnDL7X QmcUOtVGV6XgES5YJ4fJLR QgQlkgSElHSCBHUkFERSBE WVNQTEFTSUFccGFyICBccG NhYPAyWNIXV7TQXQuRFxzn ILQaKBLwQ94qFEJBW6VQNG fhbFPcAVKuDRHvRXWOG5kZ FN8GTkOKJHLVF7QsE1pOLR SMPjXRX8JQCaIYCC0BIDHO WMSNAWJyEGXQYwTGU9MJOa PvT3tVGJHNNSZCRCVKKPMO E3IOFDyXX4qmLCGmFQMpTO JsYY6CAAQNM3CHJVKSTTQU REVOVElGSUVEXHBhclxwYX YvYx6eWMOBOUpOO5RGVRLP VCAzOSBDTSwgQklPUFNZOl xwYXJccGFyZFxwbGFpblxm DRuvalF3SAOwTPruMTLxVV ZzMjBcbGFuZzEwMzNcaGlj aFxmMVxkYmNoXGYxXGxvY2 zfIrPeOrIvKICcQQAsQS7a O47KQR1VZKCxEVNHO2WHMB mMZAjoPX9EZIVTNP1VGLEM ZEBSUTzHY1hOEVJQO56VFW EEWA7TKYuPUFkaCoVHSkBI FmFPW35CWLBDXRSzmQYcUS FsXHBsYWluXGYwXGZzMjRc iTwawH1pTmEgCqRuZOayIU 6uXJGsR4ekcSSaADPlSQWg J4tkXgMozG7vzMwuDAfixx IwICAgICAgLSBOTyBEWVNQ TEFTSUEgSURFTlRJRklFRF lyVKXflAGuDTPlOJHMM0MR HYjSSssmDVTxIlusF25iCI SYX0EJCNhgvHTtOCEwxaQv nWmhyW0hItUvLmLqIPpcvV FpblxmMVxmczIwXGxhbmcx NNOxZLcbJ7adGyZwKYLnqN igDJwft7VaTBAjMQPwGrPt ICAgICAtIENPTFVNTkFSIE 3PX99LOPYWYDVSAOqLYMBM VElOQUwgTUVUQVBMQVNJQS kpA77OC7jWRKWZSJCQAVRB IEJBUlJFVFMgRVNPUEhBR1 QYDBOtdzSkIRYdVX7aJp7x KNsOWTvNQ9mLMWhWGH4HEV ZJRURccGFyXHBhciBFLiAg TXBNJNoMV1WPESHLLHYlNn BDTSwgQklPUFNZOlxwYXIg KEFiBVIvQCHWQEMMV3TUZH 9KK57FJQIWBQXKHWUHCisP IBWUC27GBEWEDLZLZ1jnHJ WvKHGnRVAkAX9QILRPM8OH QVNJQSBJREVOVElGSUVEXH UloftrYHSorJbdyE5dBfDb CmHzJgpdUV7rDVDbR9zusL GnWCGfUWHuU5fiJhEdtZ2r aFxmMVxjZjJcZnMyMiBNdW GxNRFzlRIKBEjbnDGreU4y MI2KLxMqCZHsSAVkZsQmRH SoQXW4EmTrAB2yzIsixG4y VkUfHhXwANihIN3yAIOdM0 ikmQZpNDQgWBSpN8ysMqYt wY6mvDzuWJgldxOdQWTava xiXKB6t5kqqDKbCTUuiSGt XyQgJPGlMYYlz6wvEXQxlK FuZzEwMzNcZnRuYmpcdWMx IQSnKhBjt5fvq393qDXdm4 lvFXSlUkA1qNCeZIVvmDox std7wSjaHvKmPXVly5yseq BcZmNoYXJzZXQwIEFyaWFs T968QODfAXswn7fsz9EuRL WagXGyp6Z6VBEZLDssGyDt F111p3pzd1xczcXuzYW8CT SgXVL8ZZqqxrVnmcP1SQcc oAZzKzL8LBntnaZhDUwwsj LmeqHdHcy5EMHmC362GEO2 nUkkp8syHZU2MXNeYNEqOg bqUb8siFDlW181ACSaGNUB IDEnpWm9NMHethRiyrMjdH DTs627R655o0kaZRYleiGm sVaDwsohu5wqC790QFLgaN VydzEyMjQwXHBhcGVyaDE1 QKTwSK0dwhcuXQojADfrIJ UxxdT6GLSgtCCyE3HrYSUc YZ8hiobjKYS4EPzmJDBwCV P3DrIrRFOsr6Kfrpj3FvXf lx0ywk87CKW3m3QlhCudZZ W9NDX6PxZgZn4euYFgBXIh EF3wBjJyiDApCZPjtf60sR paZPwhjpHlwY3qUlCdTBMh aRWjEBRbRC0ouBVlKNHhlA 5ucmxjXHBnYnJkcmhlYWRc dPeqlqTaQu6tcSdhPTA1YG kmX6teiQ5jLdV7KPhkU0im nV1rWRn8HSfwfRI4WLIrgL 1dZK5lkrrfq8nfYYgxSCbl CFTogeF7maW9RWZzzHWqN6 YedE8qMBItAE6zjwtlu5yg MYT4OPyyNIOzGBS8BuOqVE Mxv4Gbkla1LrXll9WtxEKi CCwbZ12gg124TDSuspBbY0 xwbGFpblxwbGFpblxmMFxm jkY8GAPdWLIlXHsvCQYzID ZzMjBcbGFuZzEwMzNcaGlj aFxmMVxkYmNoXGYxXGxvY2 hiMvXpA3WdTKNuEjSgaLQv VNtcqQP6JGGqKGGkd71bpS f8XCSyoipdw8KqKSNzyCLl zGGamY8wvfHxp5feGBOiLT LiFNRtW6TrRGY8gYCePCMm yNLgkQW0GD0aazShAI8vYG UgYnkgcmVzaWRlbnRzLCBm WSbru4pqSN9gSRAaoDcfzR 9vaLV0RKTjg0hmhFJmzDHn g1btb3SrexYoBOauSTMhSW eqLCUgPRSyKT6sAMRsbVSd cfQnd6I9SywuqEEnglmtLi vskvO1YKwywxbyUKVaZUui N6ykEyMbTOLygBlyQymbg3 NoXGYyXGZzMjhccGFyfX0= Final Diagnosis Comment o0ezpGKiFPVhbACeVtHdOJ (test code = MjLJPca9cdYOZheFZsAjUd 4312497814) MzNcZnRuYmpcdWMxXGRlZm Fjx4xjd472lYZnw7hsOFUj IyH9bFTcBVAxiPLdK416TV PrLIpkm3rxb3TlEXHqlWRo m0S8HNAMwsffdGe6cMxuE9 2qf0F2AyzcZ3jgCGNaXNUu G0EeSC8zYRMkZxw4IVE0VE G7LMCkSKZkP3DcAW2pCZAa rISwZMe1g3bytYyjLTGfLI C4u2ekSQoadrGjTP1qfr3f iRw8o9olxoPkIDEtPYJgjZ ZTGOKdA1SokUwyMi1buEx6 jPtoVotmBAB4Mbk6WU6qqy 07mvd1gQjkZKHimcsyRkF0 RDtuOJHafiedPWj9BYimCQ WscBFzEMXolIBtR4YxMJrb VC6nuwb4IkGdIC4kaumrCH lxVJAnYJX1EkUaRXObf1Lk zqwhTuJrni1emn23EXF2l8 ZfeTdgIWH6YKE7SdHbIt6w jFPzFNSbOR5wXgYukJSvKQ Gzln76hBdkJWxrlgTnmU4k NwWkAXMikWLyUTWhZM8iaL CsUMQscJ7jnldpOPXqToVo trjmRBPrwInthgFiKb0nwB iiLFL3THzeC6yooS5nMaG1 IJbeQ5nmoN2qVYm6MXjkiU T6RJRuqK3tMG3zoiupb9st NLS9DAhjBYKnwqN2tpBnYB QcmQDlJ6ZtfK35RfMqhQSo Z4UvhQ8kBLesGFVyybf8Sv NtUt5tfZNlxHB6JXbjEgvk YWdlXHBnbmNvbnRccGduZG VjXHBsYWluXHBsYWluXGYw CMQdBtVdqRcynUmhuH0gAx DlRpXeAHrfFA0dMYVzE3ys pXLyUXZtHWCjE4mtNbIwgU 9jaFxmMVxmczIwIERyLiBR jZJxlAWuANXgqeeiu7SeDE YbCZTwjCfkRKGbb7Jdn7Ho E9ydXC2lZCRgK6AyyQTipP LugEpusnyjFR6yn3GvGaif fHU7HHNiecKiZ70xM4Iraa S7tBCqUUGmUXFijNQazp6z aXMuICBccGFyXHBhcn0= Clinical Information 1. R/O CARCINOMA2 - 5. (test code = ? R/O BARRETTS 0575602409) Gross Description (test h3idwJHwBYBzvHUnAeLvYE code = 7263542013) JuXXUqo9fvZNJchGWaFsGc MzNcZnRuYmpcdWMxXGRlZm Ewp4lhp785kMUda4xnOXFk QdO0bKVqBTBmyXBpJ313DR DwIYokv4zmb5SzTYXfbFKm y8A4ETOGbjbwdCe1b0rpTe IcNeB2sSTdSIeeS5hzyqWt yYFzRHOuN2OygjABTECzJp q1yUxtO91qg9E8PwjsA9qi ZWQwXGdyZWVuMFxibHVlMC C7IDVyFEB7DZjdccDqzoB1 HTowzTTxRrT4UVf2i3hwqX qiBPRbWID1o7zsESthyyHm TN1uqz8liJj9z4khwkOfPA HtYKPnoYMZAYDlJ3UdfDbm Aa6euCf8rPupZsofEVU8Bv a6TZ5wwv14vlo8sDshIWJx slshXcU9KTeuTKVzwuuzPT b8KRizJHWxbMUzKZUjqQAg B4SmDLtaWG0rxee6PtWcJH 9wtmjyAEmmWLUpTQB9RiDx JXVpu3RjsibcCyYqdc9ibp 94SRQ3t7HnaRwoNMX3QMQ6 JeCrCl1siHKkKTAqSC0lJr AziTEuGUYept31bPiiPFtc iuDmaT2kJpXvNJVepDVdSJ TgYX8tdTFdWFIzlD1mqrbf XHBnYnJkcmhlYWRccGdicm LuMy4fcXthCCN8AEqlM7ar eT2fUaK3LBryY3mjtQ2oOH d8IMjsoAR3DALluZ9hUH7j flsye7ftKVT2DRfhPNNqjm T9ndWvJYMcbZGwU3YlhE01 AbKejNTqV5CxuR6cASfkIV Licti2ZvNhOk0etCEkbZB2 MFxzYmtwYWdlXHBnbmNvbn RccGduZGVjXHBsYWluXHBs BDduZFTuTLKiUoNgc8ObYD Hel6pnTzDaj4ryiKf5PNwq bFxwbGFpblxmMFxmczIwXH AtCOzvCXQpUKHjZdZiS3Zr C6riNE1zLFOivkElKGFgoM WvKOFhmqUmu2KhXCyfatAo KRPlcOyxFIH4iEHjJPGiFT PnAONqTX01ZUAtTMyoZDMr CKBvMtQpbBegBMtiTSv5Hb xwbGFpblxmMVxmczIwIHMg bmFtZSwgVUggbnVtYmVyIF xwbGFpblxmMVxmczIwXHU4 RfPnMWpjIJSyuZdlcF1hLp OqMmUlSFKrlO7yRTNoWOJs gYejvmwlZE4zt3QczWkzsX 3sQuIgVtQjAKi9EDIiGLJp Jqd8XRLmCFzjYSAjCYHiPs YlOYBeQOIov74ftOZ4dzGb EqG5MPXvkf5gyL7mQUudde JpbWvqbyTephKzmO4grRWe uHCqr98jlRT4kCLzqLMvNw JhM62oleRyTOvfLbwxlVKc HtlzyXXfFdDtH04oWNXmKd P4TRQmZuB8PMPxQULreYbs GV9wMMegZF45BVjsND71UY NtIGFuZCAxLjIgeCAwLjcg xAGjQeThO07nAhLQrWAySd IsLXPhFFN8LSQzTLEaaJRh kbYpeuIsuC0sRMLnPT3jXL VoytoliBw7EJWlX6Ohb32x ZCByZXZlYWxpbmcgYSBmcm szNwduIFMhw1v4jB1hWIQl aIEfp5RyHaKsBL8nVRLiGV LiPRGeYHbsYYGeViRxH34e uwWpXSSsKFGwrBImQ1UbRZ BhbmQgdGhlIGVudGlyZSBz tEFjuQ7fsbQbhjLgyEFblL J4HJKyPDBmGQSpRAYLNXVa QPWjbuYYQMU2cE4iJZGcGJ M0FHXuygSAEMrfxYFrpcxz SYjeskBzDPY9FvIyFUboJE AwfCwvdM2tXwZrMzRcNANZ BEpenLMlI2RhcGHhr2k6jB 9pZCBmcmFnbWVudFxwYXIg LIDdCILVVLbwl7Tij71cOO vszyfwf8IslC4rxUWukZNe FqInS22zdqZvjXHqBTX8NN ExMCwgMiBzbWFsbGVzdCBm brDaqLWxsUGeLKY3Kt5bjB BvBVUmNSOkbgH1YGm8OLAg hjDUpRYdoM5airPOPFukXD WvJ3IowcKnKFqfXUOtgt8z bGluIGxhYmVsbGVkIHdpdG ggdGhlIHBhdGllbnRccGxh zJ8aHxGxMkQlUJw7EUSfYu BcJzkyXHBsYWluXGYxXGZz SwJlqrBeZT3mEMEZXRWphT 5bVZEnQEMbnJpqM6BaQNKh lD2pr0oaUHHaCGEmL49otO bnaW9sItLgLnKoPBg9SUJh VOPvPnt3IRCqLKhfWYYrFL SwRuNhKMGkKDZqe79uwOS2 reUzXuEwNLMoit7ulQ8rHP vedsFfkMxuckBmb0A4OWDo k9S8ELGqapCloDPooGCrBY MhZxL2TBZtNiC7JWXaNwVd wBrgFWKrEVNijRMsdN2kvt ObohFiqHp8XUMsQEU1gMPi tEdcJDTtYwrzmVA5IQItPa KgoeOeo7ZapKb8sMIwEUgz WMMtmB7ddH6sEbJlBYYwpw CPnOTlhD8wwjRNBZydKRNs J7GiwqWrLNzkGMHsml1ztG luIGxhYmVsbGVkIHdpdGgg dGhlIHBhdGllbnRccGxhaW 3qZzPxSkGkFIo2LMJlShRy JzkyXHBsYWluXGYxXGZzMj WamjRrFL9eUUMAUHSebA4r VYMoLRMlyPklH5TeCRWgmI 6ke9uyRDZxTwdiY47meZmy tO9iAmSiWqSaJOt2JWGnEZ HnZus5EZCrGAzkJTDjMIBz JpZmHXDdLHEvr90mdCL5cm YjUzQgPKHmzt3mxA1wMWxm udNzvJumsiGnx7H9CBPvp6 M1RJHqllHklCOswJWgPCYe CvU0EGJiFjI4YGEtJnMgbG fxCCOqHWEcxOEacB6xuvRq etDzbAs1HGPhOBE6tARvbE bgQNXvAmwfwAK4UKShGqEq mmVzn1ZfoBc5pFRqUUndMC YcnB1jxV7oCfIzRKEqbvOS oKMxwR7fqoUCKLlmBVVaC0 UpsuVxVXvnFPUbmt4ecUso IGxhYmVsbGVkIHdpdGggdG whZCPggHtcmxCewGwywG5n ElRpJnGjCHz9VHItIyRxYg kyXHBsYWluXGYxXGZzMjAg mlTkAG0kCRACYNDjkH7oDS WqEUFhcNwhG3FgNVAqeE7j z0kmTNLuZpveI64lcVqieC 9jWdHiSpOzYVz5NHXlHUOh Rqc6BUZhUJodPTKpRBKbNe OjEHOcROAii42rgCY4ywBs OyCdBUJwue6auM9sWLxpex FdqUrrsbBtp4W3CMHhk2O5 ZSBmcmFnbWVudHMgKDAuNC Z4OAGzGqS7CDBvFxDmqEpf KFKuHMIomCSqfK5qxcYnke FuhKu0KCEsNVJ4kYOnvCqx YMAlTtaqcKU4ZAXzFtFazf Whr9VnoEg6iDOgIHcoUHTc dX1nfV1jFKSzLSSqpfPKrB TjqW5kyjDJMXcoBDNeE1Xl tvUqWQusXJLekz9xvOlmHM xhYmVsbGVkIHdpdGggdGhl FLQliLuryaLphRaurY5sLa DrFgSeLAi4ASJwUqXcTxnk XHBsYWluXGYxXGZzMjAgcy WcCW7mANVKYUHhrD9eSTVj BDGrfFrmZ0UhUJShbU6an2 gaDHInEbbfT01wjYpayR6w QbYtLfWsSZf9YGCpDFVjZc m4BDSdSEfoXXZcAKHuBwKd KGFnUMHbm49vhQA1duAnVe AiHZXida5fsC3aKCpucsJk jIpchfTcb4C4LNMjf6F3XZ BmcmFnbWVudHMgKDAuNiB4 TPJyYiA9KIZhZoUuaQflOQ QyLMMraIVcpX9hbzJkhcPo zCy2XZNmNAN5mLIedUjcVE ObTumdxKD9FDEuPoYhmcLi v4CqbGh8rZMsCRmnJKMgdJ 6omL4iZOBxUDLuovbgYIOm XHBsYWluXGYwXGZzMjBccG gfjS7zUtNiPwCnUOGEYJMl SS47idndnkOCDIUrAMH6iK 4jo0bph7BkEWEngKC9IL39 KBfifFIelmlpRhpzmrQ6RH bepuwtGLHbKDbuH6miTjUe VELpdRudLwhsb0JiXNOkIW GiDHmbzpZ5TEQaitgaWTFc cLasgElfoI4kJtGhQmAoWM xwbGFpblxmMVxmczIwXHBh cn0= Embedded Images (test code = 9616083650) [facility] GLUCOSE (AUTOMATED)2019-08-31 14:14:00 Test Item Value Reference Range Interpretation Comments POCT GLU (test code = 4661686654) 88 mg/dL 70-110 Lab Interpretation (test code = Normal 53887-9) [facility] METABOLIC PANEL (NA, K, CL, CO2, GLUCOSE, BUN, CREATININE, CA)2019-08-31 10:39:00 Test Item Value Reference Range Interpretation Comments NA (test code = 137 mmol/L 135-145 3161012547) K (test code = 3.8 mmol/L 3.5-5 1812451197) CL (test code = 104 mmol/L 98-108 2639199753) CO2 TOTAL (test code = 27 mmol/L 23-31 6100433193) AGAP (test code = 2-16 4955723706) BUN (test code = 25 mg/dL 7-23 H 9204337786) GLUCOSE (test code = 115 mg/dL 70-110 H 1662522496) CREATININE (test code = 1.79 mg/dL 0.6-1.25 H 4427731905) CALCIUM (test code = 7.8 mg/dL 8.6-10.6 L 9905522558) eGFR Calculation mL/min/1.73m2 (Non-) (test code = 0053627051) eGFR Calculation mL/min/1.73m2 () (test code = 7112940454) JUAN LUIS (test code = JUAN LUIS) [...] tests). Lab Interpretation Abnormal (test code = 49969-0) [facility] 10:31:00 Test Item Value Reference Range Interpretation Comments POCT GLU (test code = 9857101118) 137 mg/dL 70-110 H Lab Interpretation (test code = Abnormal 58878-7) [facility] WITH [id number] 10:30:00 Test Item Value Reference Range Interpretation [...] (test code = 35.0 fL 38.5-51.6 L 44938-6) RDW-CV (test code = 14.7 % 12.1-15.4 788-0) PLT (test code = See_Comment [Automated 777-3) message] The sy stem which generated this result transmitted reference range : 150 - 328 10*3/ ?L. The reference r christine was not used to interpret this result as normal/abnormal . MPV (test code = 10.4 fL 9.8-13 55661-4) NRBC/100 WBC (test See_Comment [Automat ed code = 2341830448) message] The system which generated this result transmitted reference range : 0.0 - 10.0 /100 WBCs. The refer ence range was not u sed to interpret th is result as normal/abnormal . NRBC x10^3 (test code <0.01 See_Comment [Auto mated = 3386388704) message] The s ystem which generated this result transmitted reference range : 10*3/?L. The reference range was not used to interpret this result as normal/abnormal . GRAN MAT (NEUT) % 60.5 % (test code = 770-8) IMM GRAN % (test code 0.20 % = 9412223040) LYMPH % (test code = 24.9 % 736-9) MONO % (test code = 9.6 % 5905-5) EOS % (test code = 4.1 % 713-8) BASO % (test code = 0.7 % 706-2) GRAN MAT x10^3(ANC) 5.16 10*3/uL 1.99-6.95 (test code = 4165569866) IMM GRAN x10^3 (test <0.03 0-0.06 code = 4397396716) LYMPH x10^3 (test code 2.13 10*3/uL 1.09-3.23 = 731-0) MONO x10^3 (test code 0.82 10*3/uL 0.36-1.02 = 742-7) EOS x10^3 (test code = 0.35 10*3/uL 0.06-0.53 711-2) BASO x10^3 (test code 0.06 10*3/uL 0.01-0.09 = 704-7) Lab Interpretation Abnormal (test code = 67797-5) [facility] GLUCOSE (AUTOMATED)2019-08-31 06:17:00 Test Item Value Reference Range Interpretation Comments POCT GLU (test code = 1721859879) 177 mg/dL 70-110 H Lab Interpretation (test code = Abnormal 60188-5) [facility] GLUCOSE (AUTOMATED)2019-08-31 02:18:00 Test Item Value Reference Range Interpretation Comments POCT GLU (test code = 5715066866) 86 mg/dL 70-110 Lab Interpretation (test code = Normal 25746-8) [facility] GLUCOSE (AUTOMATED)2019-08-30 21:57:00 Test Item Value Reference Range Interpretation Comments POCT GLU (test code = 3321647771) 140 mg/dL 70-110 H Lab Interpretation (test code = Abnormal 88998-6) [facility] GLUCOSE (AUTOMATED)2019-08-30 18:10:00 Test Item Value Reference Range Interpretation Comments POCT GLU (test code = 2136477013) 95 mg/dL 70-110 Lab Interpretation (test code = Normal 62958-4) [facility] GLUCOSE (AUTOMATED)2019-08-30 14:11:00 Test Item Value Reference Range Interpretation Comments POCT GLU (test code = 3675788602) 123 mg/dL 70-110 H Lab Interpretation (test code = Abnormal 46070-2) [facility] GLUCOSE (AUTOMATED)2019-08-30 11:04:00 Test Item Value Reference Range Interpretation Comments POCT GLU (test code = 9539874887) 136 mg/dL 70-110 H Lab Interpretation (test code = Abnormal 49504-3) [facility] GLUCOSE (AUTOMATED)2019-08-30 05:39:00 Test Item Value Reference Range Interpretation Comments POCT GLU (test code = 7210000283) 172 mg/dL 70-110 H Lab Interpretation (test code = Abnormal 06563-6) [facility] GLUCOSE (AUTOMATED)2019-08-30 04:19:00 Test Item Value Reference Range Interpretation Comments POCT GLU (test code = 4141237132) 198 mg/dL 70-110 H Lab Interpretation (test code = Abnormal 40260-5) [facility] GLUCOSE (AUTOMATED)2019-08-29 18:14:00 Test Item Value Reference Range Interpretation Comments POCT GLU (test code = 1720685085) 93 mg/dL 70-110 Lab Interpretation (test code = Normal 64308-5) [facility] GLUCOSE (AUTOMATED)2019-08-29 14:19:00 Test Item Value Reference Range Interpretation Comments POCT GLU (test code = 0787273054) 70 mg/dL 70-110 Lab Interpretation (test code = Normal 33547-3) [facility]. METABOLIC PANEL (46609)2019-08-29 09:59:00 Test Item Value Reference Range Interpretation Comments NA (test code = 136 mmol/L 135-145 9897278468) K (test code = 3.5 mmol/L 3.5-5 4698800832) CL (test code = 105 mmol/L 98-108 3959569829) CO2 TOTAL (test code = 26 mmol/L 23-31 7311137972) AGAP (test code = 2-16 0953921995) BUN (test code = 21 mg/dL 7-23 4226780444) GLUCOSE (test code = 58 mg/dL 70-110 L 1258995185) CREATININE (test code = 0.95 mg/dL 0.6-1.25 4586486896) TOTAL BILI (test code = 0.2 mg/dL 0.1-1.7 9879125042) CALCIUM (test code = 7.4 mg/dL 8.6-10.6 L 4692831738) T PROTEIN (test code = 5.2 g/dL 6.3-8.2 L 4594824559) ALBUMIN (test code = 2.4 g/dL 3.5-5 L 1181709649) ALK PHOS (test code = 67 U/L 34-122 6309341674) ALTv (test code = 15 U/L 5-50 1742-6) AST(SGOT) (test code = 28 U/L 13-40 4247871680) eGFR Calculation mL/min/1.73m2 (Non-) (test code = 8735351526) eGFR Calculation mL/min/1.73m2 () (test code = 3307457432) JUAN LUIS (test code = JUAN LUIS) [...] tests). Lab Interpretation Abnormal (test code = 98976-3) [facility] GLUCOSE (AUTOMATED)2019-08-29 09:59:00 Test Item Value Reference Range Interpretation Comments POCT GLU (test code = 1357866507) 130 mg/dL 70-110 H Lab Interpretation (test code = Abnormal 25878-1) [facility] GLUCOSE (AUTOMATED)2019-08-29 06:21:00 Test Item Value Reference Range Interpretation Comments POCT GLU (test code = 9978127193) 79 mg/dL 70-110 Lab Interpretation (test code = Normal 63292-3) [facility] GLUCOSE (AUTOMATED)2019-08-29 03:53:00 Test Item Value Reference Range Interpretation Comments POCT GLU (test code = 9193139430) 157 mg/dL 70-110 H Lab Interpretation (test code = Abnormal 74532-3) [facility] ABDOMEN LIMITED WITH [id number] 00:28:331. Slightly enlarged liver with increased and [...] disease.4. Right renal cyst5. [facility]2019-08-28 22:47:00 Test Item Value Reference Range Interpretation Comments POCT GLU (test code = 6013279143) 139 mg/dL 70-110 H Lab Interpretation (test code = Abnormal 66313-0) [facility] GLUCOSE (AUTOMATED)2019-08-28 18:56:00 Test Item Value Reference Range Interpretation Comments POCT GLU (test code = 7282041178) 90 mg/dL 70-110 Lab Interpretation (test code = Normal 93005-3) [facility] METABOLIC PANEL (NA, K, CL, CO2, GLUCOSE, BUN, CREATININE, CA)2019-08-28 14:50:00 Test Item Value Reference Range Interpretation Comments NA (test code = 136 mmol/L 135-145 7574432518) K (test code = 4.1 mmol/L 3.5-5 2583558566) CL (test code = 105 mmol/L 98-108 9077786194) CO2 TOTAL (test code = 27 mmol/L 23-31 1347934822) AGAP (test code = 2-16 2563823553) BUN (test code = 26 mg/dL 7-23 H 1309592171) GLUCOSE (test code = 78 mg/dL 70-110 1999095478) CREATININE (test code = 1.06 mg/dL 0.6-1.25 8142235009) CALCIUM (test code = 7.5 mg/dL 8.6-10.6 L 4221348589) eGFR Calculation mL/min/1.73m2 (Non-) (test code = 5394936300) eGFR Calculation mL/min/1.73m2 () (test code = 1247091534) JUAN LUIS (test code = JUAN LUIS) [...] tests). Lab Interpretation Abnormal (test code = 95177-2) [facility] Test Item Value Reference Range Interpretation Comments MAGNESIUM (test code = 4646632473) 2.3 mg/dL 1.7-2.4 Lab Interpretation (test code = Normal 54403-3) [facility] [id number] 14:45:00 Test Item Value Reference Range Interpretation [...] (test code = 35.3 fL 38.5-51.6 L 24334-2) RDW-CV (test code = 14.6 % 12.1-15.4 788-0) PLT (test code = See_Comment [Automated 777-3) message] The sy stem which generated this result transmitted reference range : 150 - 328 10*3/ ?L. The reference r christine was not used to interpret this result as normal/abnormal . MPV (test code = 10.9 fL 9.8-13 83176-9) NRBC/100 WBC (test See_Comment [Automat ed code = 6337706647) message] The system which generated this result transmitted reference range : 0.0 - 10.0 /100 WBCs. The refer ence range was not u sed to interpret th is result as normal/abnormal . NRBC x10^3 (test code <0.01 See_Comment [Auto mated = 1964542754) message] The s ystem which generated this result transmitted reference range : 10*3/?L. The reference range was not used to interpret this result as normal/abnormal . GRAN MAT (NEUT) % 63.4 % (test code = 770-8) IMM GRAN % (test code 0.50 % = 7238881741) LYMPH % (test code = 21.1 % 736-9) MONO % (test code = 10.4 % 5905-5) EOS % (test code = 4.1 % 713-8) BASO % (test code = 0.5 % 706-2) GRAN MAT x10^3(ANC) 4.14 10*3/uL 1.99-6.95 (test code = [id number]) IMM GRAN x10^3 (test 0.03 10*3/uL 0-0.06 code = 2305132705) LYMPH x10^3 (test code 1.38 10*3/uL 1.09-3.23 = 731-0) MONO x10^3 (test code 0.68 10*3/uL 0.36-1.02 = 742-7) EOS x10^3 (test code = 0.27 10*3/uL 0.06-0.53 711-2) BASO x10^3 (test code 0.03 10*3/uL 0.01-0.09 = 704-7) Lab Interpretation Abnormal (test code = 72613-4) [facility] GLUCOSE (AUTOMATED)2019-08-28 14:07:00 Test Item Value Reference Range Interpretation Comments POCT GLU (test code = 6232847296) 134 mg/dL 70-110 H Lab Interpretation (test code = Abnormal 89971-1) [facility] GLUCOSE (AUTOMATED)2019-08-28 07:20:00 Test Item Value Reference Range Interpretation Comments POCT GLU (test code = 9428028842) 144 mg/dL 70-110 H Lab Interpretation (test code = Abnormal 21255-4) [facility] GLUCOSE (AUTOMATED)2019-08-28 03:13:00 Test Item Value Reference Range Interpretation Comments POCT GLU (test code = 4173214514) 203 mg/dL 70-110 H Lab Interpretation (test code = Abnormal 90149-8) [facility] GLUCOSE (AUTOMATED)2019-08-27 22:32:00 Test Item Value Reference Range Interpretation Comments POCT GLU (test code = 7013111187) 96 mg/dL 70-110 Lab Interpretation (test code = Normal 98400-2) [facility] THORAX WO [id number] 18:39:06 Bilateral diffuse interlobular septal thickening, bilateral [...] cm right renal cortical cyst. Diffuse abdominalwalledema. [facility], Radiant Results Inft User - 08/27/2019 12:40 [...] for increased pulmonaryarterial pressure, echocardiographic evaluation is recommended.[facility] GLUCOSE (AUTOMATED)2019-08-27 17:57:00 Test Item Value Reference Range Interpretation Comments POCT GLU (test code = 8572139684) 155 mg/dL 70-110 H Lab Interpretation (test code = Abnormal 18535-8) [facility] GLUCOSE (AUTOMATED)2019-08-27 14:13:00 Test Item Value Reference Range Interpretation Comments POCT GLU (test code = 5454474454) 151 mg/dL 70-110 H Lab Interpretation (test code = Abnormal 40192-6) [facility] GLUCOSE (AUTOMATED)2019-08-27 10:41:00 Test Item Value Reference Range Interpretation Comments POCT GLU (test code = 212 mg/dL 70-110 H Notifi ed Provider [id number]) Lab Interpretation (test Abnormal code = 57623-0) [facility] GLUCOSE (AUTOMATED)2019-08-27 05:59:00 Test Item Value Reference Range Interpretation Comments POCT GLU (test code = 160 mg/dL 70-110 H Notifi ed Provider [id number]) Lab Interpretation (test Abnormal code = 54425-4) [facility] GLUCOSE (AUTOMATED)2019-08-27 04:13:00 Test Item Value Reference Range Interpretation Comments POCT GLU (test code = 6037172689) 112 mg/dL 70-110 H Lab Interpretation (test code = Abnormal 98699-5) [facility] GLUCOSE (AUTOMATED)2019-08-27 02:40:00 Test Item Value Reference Range Interpretation Comments POCT GLU (test code = 184 mg/dL 70-110 H Notifi ed Provider [id number]) Lab Interpretation (test Abnormal code = 14543-7) [facility] GLUCOSE (AUTOMATED)2019-08-26 23:44:00 Test Item Value Reference Range Interpretation Comments POCT GLU (test code = 5085147570) 263 mg/dL 70-110 H Lab Interpretation (test code = Abnormal 48681-3) [facility] GLUCOSE (AUTOMATED)2019-08-26 23:02:00 Test Item Value Reference Range Interpretation Comments POCT GLU (test code = 0596188976) 246 mg/dL 70-110 H Lab Interpretation (test code = Abnormal 59002-1) [facility] Arterial Blood Gas.2019-08-26 20:26:00 Test Item Value Reference Range Interpretation Comments PH (test code = 2) 7.35-7.45 H PCO2 (test code = See_Comment [Automat ed message] 8757493259) The system [employer] generated this result transmitted ref erence range: 35 - 45 mmHg. The reference r christine was not used to interpret this result as normal/abnor mal. PO2 (test code = See_Comment LL [Automated message] 5578515901) The system [employer] generated this result transmitted ref erence range: 80 - 100 mmHg. The reference r christine was not used to interpret this result as normal/abnor mal. HCO3 (test code = See_Comment H [Automate d message] 0179296526) The system [employer] generated this result transmitted ref erence range: 22 - 26 mEq/L. The reference r christine was not used to interpret this result as normal/abnor mal. BE (test code = See_Comment H [Automated message] 1271952916) The system [employer] generated this result transmitted ref erence range: -3.0 - 3 .0 mEq/L. The refe rence range was not u sed to interpret this result as normal/abnor mal. Lab Interpretation (test Abnormal code = 27682-6) [facility] GLUCOSE (AUTOMATED)2019-08-26 18:12:00 Test Item Value Reference Range Interpretation Comments POCT GLU (test code = 2629810922) 172 mg/dL 70-110 H Lab Interpretation (test code = Abnormal 88265-2) [facility] GLUCOSE (AUTOMATED)2019-08-26 15:33:00 Test Item Value Reference Range Interpretation Comments POCT GLU (test code = 8924747425) 86 mg/dL 70-110 Lab Interpretation (test code = Normal 16104-7) [facility] 11:57:00 Test Item Value Reference Range Interpretation Comments POCT GLU (test code = 2726656669) 86 mg/dL 70-110 Lab Interpretation (test code = Normal 94039-7) [facility]2019-08-25 21:38:00 Test Item Value Reference Range Interpretation Comments POCT GLU (test code = 4729109595) 89 mg/dL 70-110 Lab Interpretation (test code = Normal 61086-2) [facility]2019-08-25 20:46:00 Test Item Value Reference Range Interpretation Comments POCT GLU (test code = 9834497149) 75 mg/dL 70-110 Lab Interpretation (test code = Normal 77251-0) [facility] GLUCOSE (AUTOMATED)2019-08-25 20:46:00 Test Item Value Reference Range Interpretation Comments POCT GLU (test code = 3347505038) 76 mg/dL 70-110 Lab Interpretation (test code = Normal 35292-6) [facility] GLUCOSE (AUTOMATED)2019-08-25 20:12:00 Test Item Value Reference Range Interpretation Comments POCT GLU (test code = 1363144904) 83 mg/dL 70-110 Lab Interpretation (test code = Normal 59244-8) [facility]-08[facility]25 19:45:00 Test Item Value Reference Range Interpretation Comments POCT GLU (test code = 7331791109) 96 mg/dL 70-110 Lab Interpretation (test code = Normal 11363-8) [facility]:00 Test Item Value Reference Range Interpretation Comments POCT GLU (test code = 7825383095) 87 mg/dL 70-110 Lab Interpretation (test code = Normal 55753-8) [facility] 19:02:00 Test Item Value Reference Range Interpretation Comments POCT GLU (test code = 1922219861) 78 mg/dL 70-110 Lab Interpretation (test code = Normal 12020-0) [facility] GLUCOSE (AUTOMATED)2019-08-25 18:28:00 Test Item Value Reference Range Interpretation Comments POCT GLU (test code = 1940574753) 42 mg/dL 70-110 LL Lab Interpretation (test code = Abnormal 15081-7) [facility] GLUCOSE (AUTOMATED)2019-08-25 18:28:00 Test Item Value Reference Range Interpretation Comments POCT GLU (test code = 4287561815) 44 mg/dL 70-110 LL Lab Interpretation (test code = Abnormal 33039-2) [facility] GLUCOSE (AUTOMATED)2019-08-25 18:28:00 Test Item Value Reference Range Interpretation Comments POCT GLU (test code = 2912975824) 77 mg/dL 70-110 Lab Interpretation (test code = Normal 56352-9) [facility] GLUCOSE (AUTOMATED)2019-08-25 18:28:00 Test Item Value Reference Range Interpretation Comments POCT GLU (test code = 2108696090) 110 mg/dL 70-110 Lab Interpretation (test code = Normal 28126-1) [facility] METABOLIC PANEL (NA, K, CL, CO2, GLUCOSE, BUN, CREATININE, CA)2019-08-25 10:57:00 Test Item Value Reference Range Interpretation Comments NA (test code = 136 mmol/L 135-145 9332053878) K (test code = 4.5 mmol/L 3.5-5 0997446911) CL (test code = 100 mmol/L 98-108 8329359135) CO2 TOTAL (test code = 30 mmol/L 23-31 5021406414) AGAP (test code = 2-16 1653594546) BUN (test code = 38 mg/dL 7-23 H 7042245609) GLUCOSE (test code = 89 mg/dL 70-110 7229127162) CREATININE (test code = 1.46 mg/dL 0.6-1.25 H 5350751316) CALCIUM (test code = 7.7 mg/dL 8.6-10.6 L 5668514391) eGFR Calculation mL/min/1.73m2 (Non-) (test code = 3500867907) eGFR Calculation mL/min/1.73m2 () (test code = 6842939214) JUAN LUIS (test code = JUAN LUIS) [...] tests). Lab Interpretation Abnormal (test code = 33787-2) [facility] WITH [id number] 10:46:00 Test Item Value Reference Range Interpretation [...] (test code = 34.5 fL 38.5-51.6 L 74804-9) RDW-CV (test code = 14.7 % 12.1-15.4 788-0) PLT (test code = See_Comment [Automated 777-3) message] The sy stem which generated this result transmitted reference range : 150 - 328 10*3/ ?L. The reference r christine was not used to interpret this result as normal/abnormal . MPV (test code = 11.7 fL 9.8-13 88934-0) NRBC/100 WBC (test See_Comment [Automat ed code = 8775566243) message] The system which generated this result transmitted reference range : 0.0 - 10.0 /100 WBCs. The refer ence range was not u sed to interpret th is result as normal/abnormal . NRBC x10^3 (test code <0.01 See_Comment [Auto mated = 8305132853) message] The s ystem which generated this result transmitted reference range : 10*3/?L. The reference range was not used to interpret this result as normal/abnormal . GRAN MAT (NEUT) % 63.6 % (test code = 770-8) IMM GRAN % (test code 0.30 % = 4438467214) LYMPH % (test code = 19.7 % 736-9) MONO % (test code = 12.6 % 5905-5) EOS % (test code = 3.5 % 713-8) BASO % (test code = 0.3 % 706-2) GRAN MAT x10^3(ANC) 5.60 10*3/uL 1.99-6.95 (test code = 0584291152) IMM GRAN x10^3 (test 0.03 10*3/uL 0-0.06 code = 0718019022) LYMPH x10^3 (test code 1.74 10*3/uL 1.09-3.23 = 731-0) MONO x10^3 (test code 1.11 10*3/uL 0.36-1.02 H = 742-7) EOS x10^3 (test code = 0.31 10*3/uL 0.06-0.53 711-2) BASO x10^3 (test code 0.03 10*3/uL 0.01-0.09 = 704-7) Lab Interpretation Abnormal (test code = 53672-1) [id number] 05:01:32Tip of the nasogastric tube is in [...] of the nasogastric tube is in [facility])2019-08-25 02:05:00 Test Item Value Reference Range Interpretation Comments POCT GLU (test code = 75 mg/dL 70-110 Notifi ed Provider [id number]) Lab Interpretation (test Normal code = 32395-6) [facility] GLUCOSE (AUTOMATED)2019-08-24 22:24:00 Test Item Value Reference Range Interpretation Comments POCT GLU (test code = 1379368047) 134 mg/dL 70-110 H Lab Interpretation (test code = Abnormal 54581-6) [facility] GLUCOSE (AUTOMATED)2019-08-24 18:27:00 Test Item Value Reference Range Interpretation Comments POCT GLU (test code = 5857358223) 137 mg/dL 70-110 H Lab Interpretation (test code = Abnormal 91846-4) [facility] GLUCOSE (AUTOMATED)2019-08-24 14:05:00 Test Item Value Reference Range Interpretation Comments POCT GLU (test code = 7072036542) 178 mg/dL 70-110 H Lab Interpretation (test code = Abnormal 44127-8) [facility] METABOLIC PANEL (NA, K, CL, CO2, GLUCOSE, BUN, CREATININE, CA)2019-08-24 12:33:00 Test Item Value Reference Range Interpretation Comments NA (test code = 133 mmol/L 135-145 L 9913490637) K (test code = 4.3 mmol/L 3.5-5 1309347092) CL (test code = 98 mmol/L 98-108 2120240485) CO2 TOTAL (test code = 28 mmol/L 23-31 7590744925) AGAP (test code = 2-16 3595112450) BUN (test code = 39 mg/dL 7-23 H 8020284144) GLUCOSE (test code = 122 mg/dL 70-110 H 6293895991) CREATININE (test code = 1.51 mg/dL 0.6-1.25 H 7877270085) CALCIUM (test code = 7.8 mg/dL 8.6-10.6 L 4746048411) eGFR Calculation mL/min/1.73m2 (Non-) (test code = 9471522059) eGFR Calculation mL/min/1.73m2 () (test code = 3549129163) JUAN LUIS (test code = JUAN LUIS) [...] tests). Lab Interpretation Abnormal (test code = 36924-0) [facility] WITH [id number] 12:27:00 Test Item Value Reference Range Interpretation [...] (test code = 34.7 fL 38.5-51.6 L 85575-2) RDW-CV (test code = 15.0 % 12.1-15.4 788-0) PLT (test code = See_Comment [Automated 777-3) message] The sy stem which generated this result transmitted reference range : 150 - 328 10*3/ ?L. The reference r christine was not used to interpret this result as normal/abnormal . MPV (test code = 11.3 fL 9.8-13 50340-2) IPF % (test code = 4.1 % 1.2-10.7 Platelet count 7519782417) measured by fluorescence method. NRBC/100 WBC (test See_Comment [Automat ed code = 4570361059) message] The system which generated this result transmitted reference range : 0.0 - 10.0 /100 WBCs. The refer ence range was not u sed to interpret th is result as normal/abnormal . NRBC x10^3 (test code <0.01 See_Comment [Auto mated = 2530439384) message] The s ystem which generated this result transmitted reference range : 10*3/?L. The reference range was not used to interpret this result as normal/abnormal . GRAN MAT (NEUT) % 71.8 % (test code = 770-8) IMM GRAN % (test code 0.40 % = 5901333087) LYMPH % (test code = 13.7 % 736-9) MONO % (test code = 11.2 % 5905-5) EOS % (test code = 2.6 % 713-8) BASO % (test code = 0.3 % 706-2) GRAN MAT x10^3(ANC) 6.76 10*3/uL 1.99-6.95 (test code = 5896804594) IMM GRAN x10^3 (test 0.04 10*3/uL 0-0.06 code = 7865852252) LYMPH x10^3 (test code 1.29 10*3/uL 1.09-3.23 = 731-0) MONO x10^3 (test code 1.05 10*3/uL 0.36-1.02 H = 742-7) EOS x10^3 (test code = 0.24 10*3/uL 0.06-0.53 711-2) BASO x10^3 (test code 0.03 10*3/uL 0.01-0.09 = 704-7) Lab Interpretation Abnormal (test code = 93995-5) [facility] GLUCOSE (AUTOMATED)2019-08-24 10:30:00 Test Item Value Reference Range Interpretation Comments POCT GLU (test code = 9734587903) 176 mg/dL 70-110 H Lab Interpretation (test code = Abnormal 25960-6) [facility] GLUCOSE (AUTOMATED)2019-08-24 05:45:00 Test Item Value Reference Range Interpretation Comments POCT GLU (test code = 4820004105) 187 mg/dL 70-110 H Lab Interpretation (test code = Abnormal 40737-8) [facility] GLUCOSE (AUTOMATED)2019-08-24 01:54:00 Test Item Value Reference Range Interpretation Comments POCT GLU (test code = 2519868277) 156 mg/dL 70-110 H Lab Interpretation (test code = Abnormal 11791-9) [facility] GLUCOSE (AUTOMATED)2019-08-23 23:09:00 Test Item Value Reference Range Interpretation Comments POCT GLU (test code = 6444060519) 110 mg/dL 70-110 Lab Interpretation (test code = Normal 00200-1) [facility] [id number] 22:07:00 Test Item Value Reference Range Interpretation Comments TIBC (test code = 4802104143) 230 ug/dL 250-410 L % FE SAT (test code = 5549676865) 15 % 20-50 L Lab Interpretation (test code = Abnormal 88464-0) [facility] 21:58:00 Test Item Value Reference Range Interpretation Comments IRON (test code = 5600630936) 35 ug/dL 50-160 L Lab Interpretation (test code = Abnormal 76709-7) [facility] GLUCOSE (AUTOMATED)2019-08-23 18:08:00 Test Item Value Reference Range Interpretation Comments POCT GLU (test code = 7829174350) 78 mg/dL 70-110 Lab Interpretation (test code = Normal 43441-2) [facility] GLUCOSE (AUTOMATED)2019-08-23 14:32:00 Test Item Value Reference Range Interpretation Comments POCT GLU (test code = 5086673505) 126 mg/dL 70-110 H Lab Interpretation (test code = Abnormal 46595-9) [facility] GLUCOSE (AUTOMATED)2019-08-23 11:58:00 Test Item Value Reference Range Interpretation Comments POCT GLU (test code = 105 mg/dL 70-110 Notifi ed Provider [id number]) Lab Interpretation (test Normal code = 35925-9) [facility] [id number] 11:01:00 Test Item Value Reference Range Interpretation Comments NT-proBNP (test code 7950 pg/mL See_Comment H [Autom ated = 2248197024) message] The system which generated this result transmitted reference range : <=125. The reference range was not used to interpret this result as normal/abnormal . JUAN LUIS (test code = JUAN LUIS) Biotin has been reported to cause a negative bias, interpret results relative to patient's use of biotin. Lab Interpretation Abnormal (test code = 99360-4) [facility] METABOLIC PANEL (NA, K, CL, CO2, GLUCOSE, BUN, CREATININE, CA)2019-08-23 10:52:00 Test Item Value Reference Range Interpretation Comments NA (test code = 135 mmol/L 135-145 6994292294) K (test code = 4.5 mmol/L 3.5-5 5707288307) CL (test code = 101 mmol/L 98-108 0935270713) CO2 TOTAL (test code = 29 mmol/L 23-31 9131163771) AGAP (test code = 2-16 3227995287) BUN (test code = 36 mg/dL 7-23 H 4685627824) GLUCOSE (test code = 57 mg/dL 70-110 L 3314031483) CREATININE (test code = 1.61 mg/dL 0.6-1.25 H 5948487068) CALCIUM (test code = 7.8 mg/dL 8.6-10.6 L 3270091749) eGFR Calculation mL/min/1.73m2 (Non-) (test code = 9861242675) eGFR Calculation mL/min/1.73m2 () (test code = 8173598080) JUAN LUIS (test code = JUAN LUIS) [...] tests). Lab Interpretation Abnormal (test code = 27119-5) [facility] 10:52:00 Test Item Value Reference Range Interpretation Comments MAGNESIUM (test code = 0990686050) 1.9 mg/dL 1.7-2.4 Lab Interpretation (test code = Normal 34935-1) [facility] WITH [id number] 10:48:00 Test Item Value Reference Range Interpretation [...] (test code = 34.9 fL 38.5-51.6 L 42251-7) RDW-CV (test code = 14.8 % 12.1-15.4 788-0) PLT (test code = See_Comment [Automated 777-3) message] The sy stem which generated this result transmitted reference range : 150 - 328 10*3/ ?L. The reference r christine was not used to interpret this result as normal/abnormal . MPV (test code = 11.8 fL 9.8-13 70876-4) IPF % (test code = 3.8 % 1.2-10.7 Platelet count 2946877034) measured by fluorescence method. NRBC/100 WBC (test See_Comment [Automat ed code = 5432414059) message] The system which generated this result transmitted reference range : 0.0 - 10.0 /100 WBCs. The refer ence range was not u sed to interpret th is result as normal/abnormal . NRBC x10^3 (test code <0.01 See_Comment [Auto mated = 0309995773) message] The s ystem which generated this result transmitted reference range : 10*3/?L. The reference range was not used to interpret this result as normal/abnormal . GRAN MAT (NEUT) % 70.8 % (test code = 770-8) IMM GRAN % (test code 0.30 % = 3069122804) LYMPH % (test code = 13.9 % 736-9) MONO % (test code = 10.9 % 5905-5) EOS % (test code = 3.7 % 713-8) BASO % (test code = 0.4 % 706-2) GRAN MAT x10^3(ANC) 6.76 10*3/uL 1.99-6.95 (test code = 2295788165) IMM GRAN x10^3 (test 0.03 10*3/uL 0-0.06 code = 6469448050) LYMPH x10^3 (test code 1.33 10*3/uL 1.09-3.23 = 731-0) MONO x10^3 (test code 1.04 10*3/uL 0.36-1.02 H = 742-7) EOS x10^3 (test code = 0.35 10*3/uL 0.06-0.53 711-2) BASO x10^3 (test code 0.04 10*3/uL 0.01-0.09 = 704-7) Lab Interpretation Abnormal (test code = 64391-7) [facility] GLUCOSE (AUTOMATED)2019-08-23 06:29:00 Test Item Value Reference Range Interpretation Comments POCT GLU (test code = 116 mg/dL 70-110 H Notifi ed Provider [id number]) Lab Interpretation (test Abnormal code = 20738-5) [facility] GLUCOSE (AUTOMATED)2019-08-23 01:54:00 Test Item Value Reference Range Interpretation Comments POCT GLU (test code = 135 mg/dL 70-110 H Notifi ed Provider [id number]) Lab Interpretation (test Abnormal code = 75804-8) [facility] GLUCOSE (AUTOMATED)2019-08-22 23:32:00 Test Item Value Reference Range Interpretation Comments POCT GLU (test code = 4010138015) 109 mg/dL 70-110 Lab Interpretation (test code = Normal 81327-8) [facility] by Britney MTZXcvmg3535-71-72 17:55:00 Test Item Value Reference Range Interpretation Comments MSSA Screen by Britney MTZ (test code Negative Negative = 99340-2) MRSA/MSSA Positive? (test code = No No 0134557966) Lab Interpretation (test code = Normal 06764-1) [facility] GLUCOSE (AUTOMATED)2019-08-22 17:43:00 Test Item Value Reference Range Interpretation Comments POCT GLU (test code = 0594087292) 139 mg/dL 70-110 H Lab Interpretation (test code = Abnormal 46916-8) [facility] [id number] 16:53:00 Test Item Value Reference Range Interpretation Comments NT-proBNP (test code 34425 pg/mL See_Comment H [Autom ated = 9318464549) message] The system which generated this result transmitted reference range : <=125. The reference range was not used to interpret this result as normal/abnormal . JUAN LUIS (test code = JUAN LUIS) Biotin has been reported to cause a negative bias, interpret results relative to patient's use of biotin. Lab Interpretation Abnormal (test code = 46683-2) [facility] 1 [id number] 10:34:46Edema type pattern. CLINICAL HISTORY:SOB COMPARISON:None TECHNIQUE:Portable [...] zone. No pneumothorax. Possiblesmall effusions.IMPRESSIONEdema type pattern. [facility]2019-08-22 10:03:00 Test Item Value Reference Range Interpretation Comments POCT GLU (test code = 118 mg/dL 70-110 H Notifi ed Provider [id number]) Lab Interpretation (test Abnormal code = 37106-2) [facility] (NA, K, CL, CO2, GLUCOSE, BUN, CREATININE, CA)2019-08-22 08:20:00 Test Item Value Reference Range Interpretation Comments NA (test code = 136 mmol/L 135-145 3552014358) K (test code = 4.8 mmol/L 3.5-5 1912575997) CL (test code = 102 mmol/L 98-108 2893431672) CO2 TOTAL (test code = 30 mmol/L 23-31 0210567257) AGAP (test code = 2-16 6916286982) BUN (test code = 34 mg/dL 7-23 H 9193575517) GLUCOSE (test code = 67 mg/dL 70-110 L 0532611844) CREATININE (test code = 1.37 mg/dL 0.6-1.25 H 6689972350) CALCIUM (test code = 8.4 mg/dL 8.6-10.6 L 8072213126) eGFR Calculation mL/min/1.73m2 (Non-) (test code = 4761749281) eGFR Calculation mL/min/1.73m2 () (test code = 9937222377) JUAN LUIS (test code = JUAN LUIS) [...] tests). Lab Interpretation Abnormal (test code = 41773-4) [facility]2020-02-[facility] 08:20:00 Test Item Value Reference Range Interpretation Comments MAGNESIUM (test code = 4091631507) 2.0 mg/dL 1.7-2.4 Lab Interpretation (test code = Normal 01136-6) [facility] WITH [id number] 08:11:00 Test Item Value Reference Range Interpretation [...] (test code = 35.3 fL 38.5-51.6 L 03009-1) RDW-CV (test code = 15.1 % 12.1-15.4 788-0) PLT (test code = See_Comment [Automated 777-3) message] The sy stem which generated this result transmitted reference range : 150 - 328 10*3/ ?L. The reference r christine was not used to interpret this result as normal/abnormal . MPV (test code = 11.5 fL 9.8-13 03694-4) IPF % (test code = 4.2 % 1.2-10.7 Platelet count 9451889344) measured by fluorescence method. NRBC/100 WBC (test See_Comment [Automat ed code = 7948760927) message] The system which generated this result transmitted reference range : 0.0 - 10.0 /100 WBCs. The refer ence range was not u sed to interpret th is result as normal/abnormal . NRBC x10^3 (test code <0.01 See_Comment [Auto mated = 5316198579) message] The s ystem which generated this result transmitted reference range : 10*3/?L. The reference range was not used to interpret this result as normal/abnormal . GRAN MAT (NEUT) % 68.5 % (test code = 770-8) IMM GRAN % (test code 0.40 % = 5182607301) LYMPH % (test code = 18.7 % 736-9) MONO % (test code = 8.8 % 5905-5) EOS % (test code = 3.0 % 713-8) BASO % (test code = 0.6 % 706-2) GRAN MAT x10^3(ANC) 5.42 10*3/uL 1.99-6.95 (test code = 2959927524) IMM GRAN x10^3 (test 0.03 10*3/uL 0-0.06 code = 5787971331) LYMPH x10^3 (test code 1.48 10*3/uL 1.09-3.23 = 731-0) MONO x10^3 (test code 0.70 10*3/uL 0.36-1.02 = 742-7) EOS x10^3 (test code = 0.24 10*3/uL 0.06-0.53 711-2) BASO x10^3 (test code 0.05 10*3/uL 0.01-0.09 = 704-7) Lab Interpretation Abnormal (test code = 88868-6) [facility] GLUCOSE (AUTOMATED)2019-08-22 06:25:00 Test Item Value Reference Range Interpretation Comments POCT GLU (test code = 253 mg/dL 70-110 H Notifi ed Provider [id number]) Lab Interpretation (test Abnormal code = 35587-8) [facility] GLUCOSE (AUTOMATED)2019-08-22 03:19:00 Test Item Value Reference Range Interpretation Comments POCT GLU (test code = 279 mg/dL 70-110 H Notifi ed Provider [id number]) Lab Interpretation (test Abnormal code = 31958-6) [facility] GLUCOSE (AUTOMATED)2019-08-21 22:45:00 Test Item Value Reference Range Interpretation Comments POCT GLU (test code = 0449727578) 231 mg/dL 70-110 H Lab Interpretation (test code = Abnormal 81767-9) [facility] GLUCOSE (AUTOMATED)2019-08-21 18:32:00 Test Item Value Reference Range Interpretation Comments POCT GLU (test code = 7254273359) 144 mg/dL 70-110 H Lab Interpretation (test code = Abnormal 66716-5) [facility] GLUCOSE (AUTOMATED)2019-08-21 13:56:00 Test Item Value Reference Range Interpretation Comments POCT GLU (test code = 1537208253) 123 mg/dL 70-110 H Lab Interpretation (test code = Abnormal 85528-6) [facility] GLUCOSE (AUTOMATED)2019-08-21 10:04:00 Test Item Value Reference Range Interpretation Comments POCT GLU (test code = 111 mg/dL 70-110 H Notifi ed Provider [id number]) Lab Interpretation (test Abnormal code = 60987-9) [id number] 08:37:00 Test Item Value Reference Range Interpretation Comments NT-proBNP (test code 17761 pg/mL See_Comment H [Autom ated = 8918041099) message] The system which generated this result transmitted reference range : <=125. The reference range was not used to interpret this result as normal/abnormal . JUAN LUIS (test code = JUAN LUIS) Biotin has been reported to cause a negative bias, interpret results relative to patient's use of biotin. Lab Interpretation Abnormal (test code = 94850-8) [facility] Metabolic Panel (NA, K, CL, CO2, GLUCOSE, BUN, CREATININE, CA)2019-08-21 08:28:00 Test Item Value Reference Range Interpretation Comments NA (test code = 136 mmol/L 135-145 8979759851) K (test code = 5.0 mmol/L 3.5-5 5618975923) CL (test code = 102 mmol/L 98-108 0957460812) CO2 TOTAL (test code = 30 mmol/L 23-31 0864822267) AGAP (test code = 2-16 0276932741) BUN (test code = 37 mg/dL 7-23 H 6875062366) GLUCOSE (test code = 88 mg/dL 70-110 9751232194) CREATININE (test code = 1.44 mg/dL 0.6-1.25 H 7093577429) CALCIUM (test code = 8.2 mg/dL 8.6-10.6 L 2094417089) eGFR Calculation mL/min/1.73m2 (Non-) (test code = 1620229896) eGFR Calculation mL/min/1.73m2 () (test code = 6910353505) JUAN LUIS (test code = JUAN LUIS) [...] tests). Lab Interpretation Abnormal (test code = 26233-6) [facility] WITH [id number] 08:17:00 Test Item Value Reference Range Interpretation Comments WBC (test code = See_Comment [Automated 4590-2) message] The sy stem which generated this result transmitted reference range : 4.20 - 10.70 10*3/?L. The reference range was not used to interpret this result as normal/abnormal . RBC (test code = See_Comment [Automated 576-8) message] The sy stem which generated this [...] (test code = 35.3 fL 38.5-51.6 L 02287-8) RDW-CV (test code = 15.2 % 12.1-15.4 788-0) PLT (test code = See_Comment [Automated 777-3) message] The sy stem which generated this result transmitted reference range : 150 - 328 10*3/ ?L. The reference r christine was not used to interpret this result as normal/abnormal . MPV (test code = 12.2 fL 9.8-13 57075-9) IPF % (test code = 4.9 % 1.2-10.7 Platelet count 0088998457) measured by fluorescence method. NRBC/100 WBC (test See_Comment [Automat ed code = 8747603636) message] The system which generated this result transmitted reference range : 0.0 - 10.0 /100 WBCs. The refer ence range was not u sed to interpret th is result as normal/abnormal . NRBC x10^3 (test code <0.01 See_Comment [Auto mated = 6664231511) message] The s ystem which generated this result transmitted reference range : 10*3/?L. The reference range was not used to interpret this result as normal/abnormal . GRAN MAT (NEUT) % 78.7 % (test code = 770-8) IMM GRAN % (test code 0.40 % = 3885730931) LYMPH % (test code = 11.4 % 736-9) MONO % (test code = 8.1 % 5905-5) EOS % (test code = 0.9 % 713-8) BASO % (test code = 0.5 % 706-2) GRAN MAT x10^3(ANC) 8.31 10*3/uL 1.99-6.95 H (test code = 4555099579) IMM GRAN x10^3 (test 0.04 10*3/uL 0-0.06 code = 2565617653) LYMPH x10^3 (test code 1.20 10*3/uL 1.09-3.23 = 731-0) MONO x10^3 (test code 0.85 10*3/uL 0.36-1.02 = 742-7) EOS x10^3 (test code = 0.09 10*3/uL 0.06-0.53 711-2) BASO x10^3 (test code 0.05 10*3/uL 0.01-0.09 = 704-7) Lab Interpretation Abnormal (test code = 32741-6) [facility] GLUCOSE (AUTOMATED)2019-08-21 05:13:00 Test Item Value Reference Range Interpretation Comments POCT GLU (test code = 8788090013) 87 mg/dL 70-110 Lab Interpretation (test code = Normal 75324-5) [facility] GLUCOSE (AUTOMATED)2019-08-21 03:29:00 Test Item Value Reference Range Interpretation Comments POCT GLU (test code = 65 mg/dL 70-110 L Notifi ed Provider [id number]) Lab Interpretation (test Abnormal code = 49494-4) [facility] GLUCOSE (AUTOMATED)2019-08-20 22:42:00 Test Item Value Reference Range Interpretation Comments POCT GLU (test code = 0347003618) 102 mg/dL 70-110 Lab Interpretation (test code = Normal 35097-5) [facility], [id number] 22:11:00 Test Item Value Reference Range Interpretation Comments VIT D 25OH (test code = <13 25-80 L 78623-7) JUAN LUIS (test code = JUAN LUIS) Deficiency: <20 ng/mLInsufficiency: 20-24 ng/mLOptimal: 25-80 ng/mL Lab Interpretation (test Abnormal code = 33594-9) [facility] GLUCOSE (AUTOMATED)2019-08-20 17:49:00 Test Item Value Reference Range Interpretation Comments POCT GLU (test code = 0853264308) 112 mg/dL 70-110 H Lab Interpretation (test code = Abnormal 37553-6) [facility]2019-08-20 14:23:00 Test Item Value Reference Range Interpretation Comments POCT GLU (test code = 7728180681) 122 mg/dL 70-110 H Lab Interpretation (test code = Abnormal 25704-8) [facility] [id number] 11:09:00 Test Item Value Reference Range Interpretation Comments TROPONIN I (test 0.032 ng/mL See_Comment [Automated code = 5439356325) message] The system which generated this result [...] ? Lab Interpretation Normal (test code = 21724-9) [facility] [id number] 11:06:00 Test Item Value Reference Range Interpretation Comments NT-proBNP (test code 09105 pg/mL See_Comment H [Autom ated = 7681714832) message] The system which generated this result transmitted reference range : <=125. The reference range was not used to interpret this result as normal/abnormal . JUAN LUIS (test code = JUAN LUIS) Biotin has been reported to cause a negative bias, interpret results relative to patient's use of biotin. Lab Interpretation Abnormal (test code = 71910-5) [facility] [id number] 10:58:00 Test Item Value Reference Range Interpretation Comments URIC ACID (test code = 7416880837) 5.7 mg/dL 3.6-8 Lab Interpretation (test code = Normal 73792-1) [facility] (NA, K, CL, CO2, GLUCOSE, BUN, CREATININE, CA)2019-08-20 10:58:00 Test Item Value Reference Range Interpretation Comments NA (test code = 136 mmol/L 135-145 8065936373) K (test code = 4.0 mmol/L 3.5-5 1580265783) CL (test code = 106 mmol/L 98-108 1986963608) CO2 TOTAL (test code = 27 mmol/L 23-31 5561579221) AGAP (test code = 2-16 7145472423) BUN (test code = 35 mg/dL 7-23 H 8707744230) GLUCOSE (test code = 149 mg/dL 70-110 H 3404914864) CREATININE (test code = 1.46 mg/dL 0.6-1.25 H 8708712942) CALCIUM (test code = 8.5 mg/dL 8.6-10.6 L 0828332445) eGFR Calculation mL/min/1.73m2 (Non-) (test code = 0005816358) eGFR Calculation mL/min/1.73m2 () (test code = 4145993331) JUAN LUIS (test code = JUAN LUIS) [...] tests). Lab Interpretation Abnormal (test code = 76794-3) [facility] WITH [id number] 10:46:00 Test Item Value Reference Range Interpretation Comments WBC (test code = See_Comment [Automated 4390-2) message] The sy stem which generated this [...] (test code = 34.4 fL 38.5-51.6 L 30886-0) RDW-CV (test code = 15.2 % 12.1-15.4 788-0) PLT (test code = See_Comment [Automated 777-3) message] The sy stem which generated this result transmitted reference range : 150 - 328 10*3/ ?L. The reference r christine was not used to interpret this result as normal/abnormal . MPV (test code = Not Measure d 61024-1) IPF % (test code = 6.1 % 1.2-10.7 Platelet count 1967039750) measured by fluorescence method. NRBC/100 WBC (test See_Comment [Automat ed code = 9018341093) message] The system which generated this result transmitted reference range : 0.0 - 10.0 /100 WBCs. The refer ence range was not u sed to interpret th is result as normal/abnormal . NRBC x10^3 (test code <0.01 See_Comment [Auto mated = 5918065178) message] The s ystem which generated this result transmitted reference range : 10*3/?L. The reference range was not used to interpret this result as normal/abnormal . GRAN MAT (NEUT) % 66.8 % (test code = 770-8) IMM GRAN % (test code 0.30 % = 6250734932) LYMPH % (test code = 20.3 % 736-9) MONO % (test code = 9.9 % 5905-5) EOS % (test code = 2.3 % 713-8) BASO % (test code = 0.4 % 706-2) GRAN MAT x10^3(ANC) 6.15 10*3/uL 1.99-6.95 (test code = 3470229992) IMM GRAN x10^3 (test 0.03 10*3/uL 0-0.06 code = 4667609734) LYMPH x10^3 (test code 1.87 10*3/uL 1.09-3.23 = 731-0) MONO x10^3 (test code 0.91 10*3/uL 0.36-1.02 = 742-7) EOS x10^3 (test code = 0.21 10*3/uL 0.06-0.53 711-2) BASO x10^3 (test code 0.04 10*3/uL 0.01-0.09 = 704-7) Lab Interpretation Abnormal (test code = 09149-2) [facility] B12, [id number] 08:51:00 Test Item Value Reference Range Interpretation Comments VIT B12 (test code = 409 pg/mL 240-930 3403951112) JUAN LUIS (test code = JUAN LUIS) Biotin has been reported to cause a positive bias, interpret results relative to patient's use of biotin. Lab Interpretation (test Normal code = 24361-6) [facility]FOLATE2020-02-06 08:51:00 Test Item Value Reference Range Interpretation Comments FOLATE SER (test code = 11.7 ng/mL 3-20 0401000028) Lab Interpretation (test code = Normal 68931-3) [facility] GLUCOSE (AUTOMATED)2019-08-20 05:51:00 Test Item Value Reference Range Interpretation Comments POCT GLU (test code = 0440061038) 239 mg/dL 70-110 H Lab Interpretation (test code = Abnormal 46231-8) [facility] GLUCOSE (AUTOMATED)2019-08-20 02:49:00 Test Item Value Reference Range Interpretation Comments POCT GLU (test code = 5346412736) 261 mg/dL 70-110 H Lab Interpretation (test code = Abnormal 19166-9) [facility] HospitalIRON [id number] 23:44:00 Test Item Value Reference Range Interpretation Comments IRON (test code = 64 ug/dL 50-160 Slight hem olysis 6248816070) TIBC (test code = 225 ug/dL 250-410 L 8418788299) % FE SAT (test code = 28 % 20-50 4856891530) Lab Interpretation (test Abnormal code = 76721-3) [facility] HospitalTroponin [id number] 23:42:00 Test Item Value Reference Range Interpretation Comments TROPONIN I (test 0.039 ng/mL See_Comment H [Automated code = 3655465826) message] The system which generated this result [...] ? Lab Interpretation Abnormal (test code = 04634-5) [facility]FERRITIN [id number] 23:37:00 Test Item Value Reference Range Interpretation Comments FERRITIN (test code = 744.0 ng/mL 18-464 H 0944561853) JUAN LUIS (test code = JUAN LUIS) Biotin has been reported to cause a negative bias, interpret results relative to patient's use of biotin. Lab Interpretation (test Abnormal code = 85740-1) [facility] GLUCOSE (AUTOMATED)2019-08-19 21:51:00 Test Item Value Reference Range Interpretation Comments POCT GLU (test code = 8250672364) 235 mg/dL 70-110 H Lab Interpretation (test code = Abnormal 85914-9) [facility] GLUCOSE (AUTOMATED)2019-08-19 17:19:00 Test Item Value Reference Range Interpretation Comments POCT GLU (test code = 1021078031) 283 mg/dL 70-110 H Lab Interpretation (test code = Abnormal 84808-9) [facility] GLUCOSE (AUTOMATED)2019-08-19 13:57:00 Test Item Value Reference Range Interpretation Comments POCT GLU (test code = 0014357454) 165 mg/dL 70-110 H Lab Interpretation (test code = Abnormal 23648-7) [facility]OP[facility] [id number] 11:05:00 Test Item Value Reference Range Interpretation Comments TROPONIN I (test 0.045 ng/mL See_Comment H [Automated code = 9329150877) message] The system which generated this result [...] ? Lab Interpretation Abnormal (test code = 43295-0) [facility] [id number] 11:04:00 Test Item Value Reference Range Interpretation Comments TROPONIN I (test 0.046 ng/mL See_Comment H [Automated code = 2038560927) message] The system which generated this result [...] ? Lab Interpretation Abnormal (test code = 52602-7) [facility] [id number] 11:02:00 Test Item Value Reference Range Interpretation Comments NT-proBNP (test code 44134 pg/mL See_Comment H [Autom ated = 8377183625) message] The system which generated this result transmitted reference range : <=125. The reference range was not used to interpret this result as normal/abnormal . JUAN LUIS (test code = JUAN LUIS) Biotin has been reported to cause a negative bias, interpret results relative to patient's use of biotin. Lab Interpretation Abnormal (test code = 13811-8) [facility] Met[facility] (NA, K, CL, CO2, GLUCOSE, BUN, CREATININE, CA)2019-08-19 11:00:00 Test Item Value Reference Range Interpretation Comments NA (test code = 138 mmol/L 135-145 1047375114) K (test code = 3.1 mmol/L 3.5-5 L 0659519564) CL (test code = 106 mmol/L 98-108 1018828627) CO2 TOTAL (test code = 26 mmol/L 23-31 8682262568) AGAP (test code = 2-16 0165919259) BUN (test code = 31 mg/dL 7-23 H 2128192736) GLUCOSE (test code = 61 mg/dL 70-110 L 2869531027) CREATININE (test code = 1.28 mg/dL 0.6-1.25 H 5827765759) CALCIUM (test code = 9.2 mg/dL 8.6-10.6 1140361872) eGFR Calculation mL/min/1.73m2 (Non-) (test code = 4714520049) eGFR Calculation mL/min/1.73m2 () (test code = 7223529136) JUAN LUIS (test code = JUAN LUIS) [...] tests). Lab Interpretation Abnormal (test code = 77048-5) [facility]UR[facility] [id number] 10:53:00 Test Item Value Reference Range Interpretation Comments URIC ACID (test code = 5315835071) 5.3 mg/dL 3.6-8 Lab Interpretation (test code = Normal 09002-2) [facility] HospitalMAGNESIUM2020-02-05 10:53:00 Test Item Value Reference Range Interpretation Comments MAGNESIUM (test code = 6050116323) 2.3 mg/dL 1.7-2.4 Lab Interpretation (test code = Normal 76172-6) [facility] HospitalPHOSPHORUS2020-02-05 10:53:00 Test Item Value Reference Range Interpretation Comments PHOSPHORUS (test code = 4254651605) 3.3 mg/dL 2.5-5 Lab Interpretation (test code = Normal 93384-7) [facility] HospitalCBC WITH [id number] 10:30:00 Test Item Value Reference Range Interpretation [...] (test code = 34.7 fL 38.5-51.6 L 95123-0) RDW-CV (test code = 15.2 % 12.1-15.4 788-0) PLT (test code = See_Comment [Automated 777-3) message] The sy stem which generated this result transmitted reference range : 150 - 328 10*3/ ?L. The reference r christine was not used to interpret this result as normal/abnormal . MPV (test code = Not Measure d 51128-6) IPF % (test code = 6.8 % 1.2-10.7 Platelet count 7919655144) measured by fluorescence method. NRBC/100 WBC (test See_Comment [Automat ed code = 5274966183) message] The system which generated this result transmitted reference range : 0.0 - 10.0 /100 WBCs. The refer ence range was not u sed to interpret th is result as normal/abnormal . NRBC x10^3 (test code <0.01 See_Comment [Auto mated = 8904517116) message] The s ystem which generated this result transmitted reference range : 10*3/?L. The reference range was not used to interpret this result as normal/abnormal . GRAN MAT (NEUT) % 60.5 % (test code = 770-8) IMM GRAN % (test code 0.30 % = 4885777709) LYMPH % (test code = 26.2 % 736-9) MONO % (test code = 9.8 % 5905-5) EOS % (test code = 2.6 % 713-8) BASO % (test code = 0.6 % 706-2) GRAN MAT x10^3(ANC) 6.61 10*3/uL 1.99-6.95 (test code = 8240173959) IMM GRAN x10^3 (test 0.03 10*3/uL 0-0.06 code = 7978362504) LYMPH x10^3 (test code 2.86 10*3/uL 1.09-3.23 = 731-0) MONO x10^3 (test code 1.07 10*3/uL 0.36-1.02 H = 742-7) EOS x10^3 (test code = 0.28 10*3/uL 0.06-0.53 711-2) BASO x10^3 (test code 0.07 10*3/uL 0.01-0.09 = 704-7) Lab Interpretation Abnormal (test code = 56144-2) [facility] GLUCOSE (AUTOMATED)2019-08-19 10:02:00 Test Item Value Reference Range Interpretation Comments POCT GLU (test code = 6929758778) 81 mg/dL 70-110 Lab Interpretation (test code = Normal 97245-1) [facility] GLUCOSE (AUTOMATED)2019-08-19 04:46:00 Test Item Value Reference Range Interpretation Comments POCT GLU (test code = 4328914612) 325 mg/dL 70-110 H Lab Interpretation (test code = Abnormal 66131-0) [facility]UR[facility] [id number] 04:45:00 Test Item Value Reference Range Interpretation Comments URIC ACID (test code = 1396854564) 5.2 mg/dL 3.6-8 Lab Interpretation (test code = Normal 13768-6) [facility] HospitalTroponin [id number] 04:08:00 Test Item Value Reference Range Interpretation Comments TROPONIN I (test 0.026 ng/mL See_Comment [Automated code = 5152750493) message] The system which generated this result [...] ? Lab Interpretation Normal (test code = 67150-2) [facility] HospitalLipid Panel (Total Cholesterol, Triglycerides, HDL)2019-08-19 03:55:00 Test Item Value Reference Range Interpretation Comments CHOL (test code = 196 mg/dL 120-200 2160381181) HDL (test code = 36 mg/dL >40 L 8000654970) HDLC RATIO (test code = See_Comment H [Au tomated message] 3739480209) The system [employer] generated this result transmit tennille reference range : <=5.0. The refe rence range was not u sed to interpret th is result as normal/abnormal . TRIG (test code = 131 mg/dL 30-170 3289535807) LDL CHOL (test code = 134 mg/dL See_Comment [Auto mated message] 28680-1) The system [employer] generated this result transmit tennille reference range : <=160. The refe rence range was not u sed to interpret th is result as normal/abnormal . VLDL (test code = 26 mg/dL 5-60 2867929543) Lab Interpretation (test Abnormal code = 64366-6) [facility]PO[facility])2019-08-19 01:40:00 Test Item Value Reference Range Interpretation Comments POCT GLU (test code = 9555852639) 381 mg/dL 70-110 H Lab Interpretation (test code = Abnormal 01987-5) [facility] HospitalThyroid Stimulating Hormone (TSH)2019-08-19 00:12:00 Test Item Value Reference Range Interpretation Comments TSH (test code = See_Comment Biotin has been 8778107008) reported to cau se a negative bias, interpret resul ts relative to pat jvnhi's use of biotin. [Automated mess age] The system [employer] generated this result transmitted ref erence range: 0.45 - 4 .70 mIU/L. The refe rence range was not u sed to interpret this result as normal/abnor mal. Lab Interpretation (test Normal code = 76375-8) [facility] HospitalGlycosylated Hemoglobin (A1C)2019-08-19 00:11:00 Test Item Value [...] Indicated Lab Interpretation Abnormal (test code = 82311-1) [facility] HospitalLipid [facility] (Total Cholesterol, Triglycerides, HDL) - [id number] 23:40:00 Test Item Value Reference Range Interpretation Comments CHOL (test code = 199 mg/dL 120-200 0477429480) HDL (test code = 36 mg/dL >40 L 1876680922) HDLC RATIO (test code = See_Comment H [Au tomated message] 9309172018) The system [employer] generated this result transmit tennille reference range : <=5.0. The refe rence range was not u sed to interpret th is result as normal/abnormal . TRIG (test code = 146 mg/dL 30-170 9406944380) LDL CHOL (test code = 134 mg/dL See_Comment [Auto mated message] 93457-3) The system [facility] [employer] generated this result transmit tennille reference range : <=160. The refe rence range was not u sed to interpret th is result as normal/abnormal . VLDL (test code = 29 mg/dL 5-60 1551935621) Lab Interpretation (test Abnormal code = 73328-1) [facility]PO[facility]SE (AUTOMATED)2019-08-18 23:33:00 Test Item Value Reference Range Interpretation Comments POCT GLU (test code = 5458425230) 424 mg/dL 70-110 H Lab Interpretation (test code = Abnormal 18816-3) [facility] HospitalN-[facility]MINAL [id number] 21:57:00 Test Item Value Reference Range Interpretation Comments NT-proBNP (test code 75919 pg/mL See_Comment H [Autom ated = 7886887621) message] The system which generated this result transmitted reference range : <=125. The reference range was not used to interpret this result as normal/abnormal . JUAN LUIS (test code = JUAN LUIS) Biotin has been reported to cause a negative bias, interpret results relative to patient's use of biotin. Lab Interpretation Abnormal (test code = 48360-2) [facility] HospitalaPTT2020-02-04 21:26:00 Test Item Value Reference Range Interpretation Comments APTT Patient (test See_Comment [Automat ed code = 3173-2) message] The system which generated this result transmitted reference range : 23 - 38 Seconds . The reference range was not used to interpr et this result as normal/abnormal . JUAN LUIS (test code = JUAN LUIS) The [facility] patient population mean normal value for aPTT is 30 seconds. Lab Interpretation Normal (test code = 21672-2) [facility] HospitalPROTHROMBIN TIME / [id number] 21:24:00 Test Item Value Reference Range Interpretation [...] tions. Lab Interpretation (test Normal code = 82397-2) [facility] HospitalBRADY [id number] 21:14:00 Test Item Value Reference Range Interpretation Comments TROPONIN I (test 0.023 ng/mL See_Comment [Automated code = 9745495186) message] The system which generated this result [...] ? Lab Interpretation Normal (test code = 21663-2) [facility] 2 [id number] 21:02:07HISTORY: ?Chest pain. TECHNIQUE: PA and lateral [...] in the lower lungs with small bilateralpleural effusion.[facility]. METABOLIC PANEL (29312)2019-08-18 21:02:00 Test Item Value Reference Range Interpretation Comments NA (test code = 134 mmol/L 135-145 L 9316776414) K (test code = 3.8 mmol/L 3.5-5 5015766371) CL (test code = 103 mmol/L 98-108 1969947150) CO2 TOTAL (test code = 25 mmol/L 23-31 8240071828) AGAP (test code = 2-16 8409853490) BUN (test code = 29 mg/dL 7-23 H 2603480713) GLUCOSE (test code = 384 mg/dL 70-110 H 5841647008) CREATININE (test code = 1.14 mg/dL 0.6-1.25 6359077863) TOTAL BILI (test code = 0.3 mg/dL 0.1-1.2 4785123304) CALCIUM (test code = 8.7 mg/dL 8.6-10.6 9963749528) T PROTEIN (test code = 6.1 g/dL 6.3-8.2 L 3232060370) ALBUMIN (test code = 3.3 g/dL 3.5-5 L 9758079979) ALK PHOS (test code = 84 U/L 34-122 6723990434) ALTv (test code = 11 U/L 5-50 1742-6) AST(SGOT) (test code = 18 U/L 13-40 9062484555) eGFR Calculation mL/min/1.73m2 (Non-) (test code = 0464076948) eGFR Calculation mL/min/1.73m2 () (test code = 1208128570) JUAN LUIS (test code = JUAN LUIS) [...] tests). Lab Interpretation Abnormal (test code = 48341-0) [facility] HospitalLIPASE, [id number] 21:02:00 Test Item Value Reference Range Interpretation Comments LIPASE (test code = [id number]) 82 U/L 0-220 Lab Interpretation (test code = Normal 66270-5) [facility] [id number] 21:00:00 Test Item Value Reference Range Interpretation Comments WBC (test code = See_Comment [Automated 3070-2) message] The sy stem which generated this result transmitted reference range : 4.20 - 10.70 10*3/?L. The reference range was not used to interpret this result as normal/abnormal . RBC (test code = See_Comment [Automated 356-1) message] The sy stem which generated this [...] (test code = 35.4 fL 38.5-51.6 L 10951-8) RDW-CV (test code = 15.3 % 12.1-15.4 788-0) PLT (test code = See_Comment [Automated 777-3) message] The sy stem which generated this result transmitted reference range : 150 - 328 10*3/ ?L. The reference r christine was not used to interpret this result as normal/abnormal . MPV (test code = Not Measure d 57937-2) NRBC/100 WBC (test See_Comment [Automat ed code = 4339391617) message] The system which generated this result transmitted reference range : 0.0 - 10.0 /100 WBCs. The refer ence range was not u sed to interpret th is result as normal/abnormal . NRBC x10^3 (test code <0.01 See_Comment [Auto mated = [id number]) message] The s ystem which generated this result transmitted reference range : 10*3/?L. The reference range was not used to interpret this result as normal/abnormal . GRAN MAT (NEUT) % 72.4 % (test code = 770-8) IMM GRAN % (test code 0.40 % = 4005457509) LYMPH % (test code = 16.5 % 736-9) MONO % (test code = 7.6 % 5905-5) EOS % (test code = 2.6 % 713-8) BASO % (test code = 0.5 % 706-2) GRAN MAT x10^3(ANC) 6.03 10*3/uL 1.99-6.95 (test code = [id number]) IMM GRAN x10^3 (test 0.03 10*3/uL 0-0.06 code = 7820523509) LYMPH x10^3 (test code 1.37 10*3/uL 1.09-3.23 = 731-0) MONO x10^3 (test code 0.63 10*3/uL 0.36-1.02 = 742-7) EOS x10^3 (test code = 0.22 10*3/uL 0.06-0.53 711-2) BASO x10^3 (test code 0.04 10*3/uL 0.01-0.09 = 704-7) Lab Interpretation Abnormal (test code = 90316-3) [facility]"
[2021-09-29 12:13] LABS: Urine Blood 1+ (Negative); Urine Glucose Negative (Negative); Urine Protein 3+ (Negative); Urine Specific Gravity 1.025 (1.005-1.030); Urine pH 5.5 (5.0-7.0)
[2021-09-29 12:18] LABS: Albumin 2.5 g/dL (3.4-5.0); Bilirubin Total 0.4 mg/dL (0.2-1.0); Potassium 3.9 mmol/L (3.5-5.1); Protein, Total 6.5 g/dL (6.4-8.2)
[2021-09-29 12:27] LABS: Urine Bacteria >50 /HPF (NONE SEEN); Urine Coarse Granular Casts 0-5 /LPF (NONE SEEN); Urine RBC <5 /HPF (NONE SEEN); Urine Yeast PRESENT (NONE SEEN)
[2021-09-29 12:31] LABS: Absolute Lymphocytes (CBC) 0.6 K/uL (0.7-4.9); Hematocrit 33.2 % (39.6-49.0); MPV 10.8 fL (7.6-11.3); RBC Red Blood Cell Count 4.65 M/uL (4.33-5.43)
[2021-09-29] MEDS ORDERED: CEFTRIAXONE 1000 MG/VIAL ONE (12:47)
--- NOTE | 2021-09-29 17:49 | RAD REPORT ---
EXAM DESCRIPTION: RAD - Chest Single View - 09/29/2021 5:31 pm CLINICAL HISTORY: stat picc line placement COMPARISON: Chest Pa And Lat (2 Views) dated 08/25/2021; Chest Single View dated 08/24/2021; Chest Sin gle View dated 07/08/2021; Chest Single View dated 07/07/2021 FINDINGS: Portable chest was obtained following placement of a right upper extremity PICC line. The catheter tip projects over the SVC/ right atrium junction, appropriate placement.
--- NOTE | 2021-09-29 18:03 | ER ---
Nurse's Notes [facility] Name: Mumtaz Anderson Age: 66 yrs Sex: Male : 1955 Arrival Date: 09/29/2021 Time: 11:13 Bed 26 Private MD: Nohemi Najera; Kali Yadav Diagnosis: UTI/ Urinary tract infection, site not specified Presentation: 09/29 11:00 Chief complaint: Spouse and/or significant other states: Patient has hx of chronic UTI jg9 and has been c/o fatigue/weakness for the past 2 days. Coronavirus screen: Vaccine status: Patient reports receiving the 2nd dose of the covid vaccine. Moderna. Ebola Screen: Patient negative for fever greater than or equal to 101.5 degrees Fahrenheit, and additional compatible Ebola Virus Disease symptoms Patient denies exposure to infectious person. Patient denies travel to an Ebola-affected area in the 21 days before illness onset. Initial Sepsis Screen: Does the patient meet any 2 criteria? No. Patient's initial sepsis screen is negative. Does the patient have a suspected source of infection? No. Patient's initial sepsis screen is negative. Initial Sepsis Screen: Does the patient meet any 2 criteria? Does the patient have a suspected source of infection? Yes: Other: chronic UTI's. Risk Assessment: Do you want to hurt yourself or someone else? Patient reports no desire to harm self or others. 11:00 Method Of Arrival: EMS: [facility] 9 11:00 Acuity: VIDAL 3 jg9 11:00 Onset of symptoms is unknown. jg9 Triage Assessment: 11:00 General: Appears in no apparent distress. Behavior is calm, cooperative. Pain: Denies jg9 pain. Historical: - Allergies: 11:17 anextuss; jg9 11:17 Latex, Natural Rubber; jg9 11:17 spironolactone; jg9 - Home Meds: 12:18 aspirin 81 mg Oral chew once daily [Active]; atorvastatin 80 mg Oral tab 1 tab once jg9 daily [Active]; Carafate 100 mg/mL Oral susp 4 times per day [Active]; clopidogrel 75 mg Oral tab 1 tab once daily [Active]; doxazosin 2 mg Oral tab once daily [Active]; escitalopram oxalate 20 mg Oral tab 2 tab once daily [Active]; 12:19 gabapentin 300 mg Oral cap BID [Active]; jg9 20:48 Albuterol Inhl as needed [Active]; ferrous sulfate 325 mg (65 mg iron) oral tab 1 tab 2 ss7 times per day [Active]; Lasix 20 mg oral tab 1 tab 2 times per day [Active]; tamsulosin 0.4 mg Oral cap 1 cap once daily [Active]; tramadol 50 mg Oral tab as needed [Active]; trazodone 150 mg Oral tab 1 tab nightly [Active]; Hydrochlorothiazide Oral 2 times per day [Active]; benzonatate 100 mg oral cap 1 cap twice a day [Active]; Nepro with Carbsteady 360ml before meals [Active]; Vitamin C 1,000 mg Oral tab twice a day [Active]; - PMHx: 11:17 Anemia; CAD; Cerebrovascular accident; Seizures; Pneumonia; Parkinsons; Myocardial jg9 infarction; CHF; COPD; Diabetes - IDDM; Hypercholesterolemia; Hypertension; kidney disease; - PSHx: 11:17 Coronary artery bypass graft; hip; knee; PEG tube; jg9 - Immunization history:: Adult Immunizations up to date. - Social history:: Smoking status: Patient/guardian denies using tobacco, the patient reports quitting approximately 3 years ago. - Family history:: not pertinent. Screenin:17 Abuse screen: Denies threats or abuse. Denies injuries from another. Nutritional jg9 screening: No deficits noted. Tuberculosis screening: No symptoms or risk factors identified. Fall Risk None identified. Assessment: 12:50 Reassessment: Patient appears in no apparent distress at this time. No changes from jg9 previously documented assessment. Patient and/or family updated on plan of care and expected duration. Pain level reassessed. 19:29 Reassessment: Patient and/or family updated on plan of care and expected duration. Pain ss7 level reassessed. Care assumed. No pending orderings. Pt in NAD. Will continue to monitor. SS. 20:55 Reassessment: Medications updated with spouse. States pt has already had all night ss7 medications. . 21:57 Reassessment: Hourly rounds made. Pt is currently sleeping. Sinus efrem noted. VSS. ss7 Will continue to monitor. SS. Vital Signs: 11:00 BP 132 / 52; Pulse 50; Resp 20 S; Temp 98.4(TE); Pulse Ox 99% on R/A; Weight 63.5 kg; jg9 Height 6 ft. 0 in. (182.88 cm); Pain 0/10; 12:17 BP 126 / 55; Pulse 46; Resp 18 S; Pulse Ox 100% on R/A; jg9 13:00 BP 135 / 56; Pulse 49; Resp 18 S; Pulse Ox 100% on R/A; jg9 14:00 BP 128 / 57; Pulse 53; Resp 17 S; Pulse Ox 99% on R/A; jg9 15:00 BP 137 / 59; Pulse 63; Resp 17 S; Pulse Ox 98% on R/A; jg9 16:00 BP 132 / 59; Pulse 50; Resp 17 S; Pulse Ox 98% on R/A; jg9 17:00 BP 129 / 52; Pulse 60; Resp 18 S; Pulse Ox 100% on R/A; jg9 19:31 BP 129 / 68; Pulse 52; Resp 18; Pulse Ox 100% on R/A; ss7 21:00 BP 120 / 46; Pulse 50; Resp 18; Pulse Ox 100% on R/A; ss7 22:00 BP 126 / 54; Pulse 50; Resp 18; Pulse Ox 100% on R/A; ss7 22:07 BP 126 / 54; Pulse 50; Resp 18; Pulse Ox 100% on R/A; ss7 11:00 Body Mass Index 18.99 (63.50 kg, 182.88 cm) jg9 ED Course: 11:13 Patient arrived in ED. jg9 11:13 Colleen Castillo, RN is Primary Nurse. jg9 11:24 Pritesh Rees MD is Attending Physician. ma2 11:45 Inserted saline lock: 22 gauge in left wrist, using aseptic technique. Blood collected. jg9 12:14 Urine Microscopic Only Sent. jg9 12:14 Lipase Sent. jg9 12:14 CMP Sent. jg9 12:14 CBC with Diff Sent. jg9 12:17 Triage completed. jg9 12:18 Arm band placed on right wrist. jg9 12:18 Patient has correct armband on for positive identification. Bed in low position. Call jg9 light in reach. Side rails up X 1. 12:50 No apparent distress. Resting quietly. Awaiting lab results, Awaiting radiology results.jg9 13:00 Urine Culture Sent. tp1 13:20 Pt visited by . jg9 14:09 Resting quietly. Appears to be sleeping. Awaiting lab results, Awaiting radiology jg9 results. Awaiting disposition. Pt visited by . 15:20 Kali Yadav DO is Private Physician. as 15:20 Nohemi Najera is Private Physician. as 17:31 Chest Single View XRAY In Process Unspecified. EDMS 18:37 Prince Mckoy MD is Hospitalizing Provider. ma2 19:34 COVID-19 SARS RT PCR (Document "Date of Onset" if Symptomatic) Sent. ss7 19:34 Family present with dinner tray. ss7 22:04 No provider procedures requiring assistance completed. Inserted ss7 22:40 Patient admitted, IV remains in place. ss7 Administered Medications: 11:51 Drug: NS 0.9% 1000 ml Route: IV; Rate: 1 bolus; Site: left wrist; jg9 13:30 Follow up: IV Status: Completed infusion; IV Intake: 1000ml jg9 12:49 Drug: Rocephin (cefTRIAXone) 1 grams Route: IV; Rate: calculated rate; Site: left wrist;jg9 14:06 Follow up: Response: No adverse reaction jg9 19:22 Drug: Meropenem 1 grams Route: IV; Rate: calculated rate; Site: left hand; ss7 20:20 Follow up: IV Status: Completed infusion ss7 Intake: 13:30 IV: 1000ml; Total: 1000ml. jg9 Outcome: 18:02 Discharge ordered by . ma2 18:37 Decision to Hospitalize by Provider. ma2 22:04 Admitted to Med/surg accompanied by tech, via stretcher, with chart, Report called to rito Means RN 22:08 Condition: stable ss7 22:58 Patient left the ED. ss7 Signatures: Dispatcher [employer] Kelle Mrashall Mohammad, MD MD ma2 Brina Kulkarni tp1 Colleen Castillo RN RN jg9 Sena Richardson RN RN ss7 Corrections: (The following items were deleted from the chart) 20:55 12:18 Home Meds: Albuterol Inhl; [address] [place] 20:55 12:19 Home Meds: ferrous sulfate 325 mg (65 mg iron) Oral tab three times a day; [address] [place] 20:55 12:19 Home Meds: Lasix 40 mg Oral tab 1 tab 2 times per day; 20/40; [address] [place] 20:55 12:19 Home Meds: metoprolol tartrate 100 mg Oral tab 2 times per day; 50/100; [place] [address] 20:55 12:19 Home Meds: Norvasc 10 mg Oral tab once daily; [address] [place] 20:55 12:19 Home Meds: Novolin 70/30 [place] Sub-Q; [place] [address] 20:55 12:19 Home Meds: tamsulosin 0.4 mg Oral cap 1 cap; prn; [address] [place] 20:55 12:19 Home Meds: tramadol 50 mg Oral tab; [place] [address] 20:55 12:19 Home Meds: trazodone 150 mg Oral tab; [place] [address] 20:55 20:48 Allergies: Hydrochlorothiazide; 7 7
--- NOTE | 2021-09-29 18:03 | EDPHYS ---
Physician Documentation [facility] Name: Mumtaz Anderson Age: 66 yrs Sex: Male : 1955 Arrival Date: 09/29/2021 Time: 11:13 Bed 26 Private MD: Nohemi Najera; Kali Yadav ED Physician Pritesh Rees HPI: 09/29 12:59 This 66 yrs old Male presents to ER via EMS with complaints of General Weakness. [facility] 12:59 66-year-old male, with history of frequent UTIs, patient was recently discharged from [facility] the hospital where he had UTI received IV antibiotics, patient here with foul-smelling urine. He said that he has been sleeping a lot recently and he is concerned that he is having another UTI. Of note he denies fever altered mental status or chills. Patient has no confusion either. at bedside and they stated that they have discussed with PCP and home nurse and they sent him here for a PICC line to be placed to receive antibiotics. Patient stated that he does not want to be admitted to the hospital . 13:03 Onset: The symptoms/episode began/occurred gradually. [facility] Historical: - Allergies: 11:17 anextuss; jg9 11:17 Latex, Natural Rubber; jg9 11:17 spironolactone; jg9 - Home Meds: 12:18 aspirin 81 mg Oral chew once daily [Active]; atorvastatin 80 mg Oral tab 1 tab once jg9 daily [Active]; Carafate 100 mg/mL Oral susp 4 times per day [Active]; clopidogrel 75 mg Oral tab 1 tab once daily [Active]; doxazosin 2 mg Oral tab once daily [Active]; escitalopram oxalate 20 mg Oral tab 2 tab once daily [Active]; 12:19 gabapentin 300 mg Oral cap BID [Active]; jg9 20:48 Albuterol Inhl as needed [Active]; ferrous sulfate 325 mg (65 mg iron) oral tab 1 tab 2 ss7 times per day [Active]; Lasix 20 mg oral tab 1 tab 2 times per day [Active]; tamsulosin 0.4 mg Oral cap 1 cap once daily [Active]; tramadol 50 mg Oral tab as needed [Active]; trazodone 150 mg Oral tab 1 tab nightly [Active]; Hydrochlorothiazide Oral 2 times per day [Active]; benzonatate 100 mg oral cap 1 cap twice a day [Active]; Nepro with Carbsteady 360ml before meals [Active]; Vitamin C 1,000 mg Oral tab twice a day [Active]; - PMHx: 11:17 Anemia; CAD; Cerebrovascular accident; Seizures; Pneumonia; Parkinsons; Myocardial jg9 infarction; CHF; COPD; Diabetes - IDDM; Hypercholesterolemia; Hypertension; kidney disease; - PSHx: 11:17 Coronary artery bypass graft; hip; knee; PEG tube; jg9 - Immunization history:: Adult Immunizations up to date. - Social history:: Smoking status: Patient/guardian denies using tobacco, the patient reports quitting approximately 3 years ago. - Family history:: not pertinent. ROS: 13:07 Constitutional: Negative for fever, chills, and weight loss. ma2 Exam: 13:22 Constitutional: This is a well developed, well nourished patient who is awake, alert, ma2 and in no acute distress. Head/Face: Normocephalic, atraumatic. Eyes: Pupils equal round and reactive to light, extra-ocular motions intact. Lids and lashes normal. Conjunctiva and sclera are non-icteric and not injected. Cornea within normal limits. Periorbital areas with no swelling, redness, or edema. ENT: Nares patent. No nasal discharge, no septal abnormalities noted. Tympanic membranes are normal and external auditory canals are clear. Oropharynx with no redness, swelling, or masses, exudates, or evidence of obstruction, uvula midline. Mucous membranes moist. Neck: Trachea midline, no thyromegaly or masses palpated, and no cervical lymphadenopathy. Supple, full range of motion without nuchal rigidity, or vertebral point tenderness. No Meningismus. Chest/axilla: Normal chest wall appearance and motion. Nontender with no deformity. No lesions are appreciated. Cardiovascular: Regular rate and rhythm with a normal S1 and S2. No gallops, murmurs, or rubs. Normal PMI, no JVD. No pulse deficits. Respiratory: Lungs have equal breath sounds bilaterally, clear to auscultation and percussion. No rales, rhonchi or wheezes noted. No increased work of breathing, no retractions or nasal flaring. Abdomen/GI: Soft, non-tender, with normal bowel sounds. No distension or tympany. No guarding or rebound. No evidence of tenderness throughout. Male : Patient has a Holcomb cath, with urine. normal genitalia with no discharge or lesions. Skin: Warm, dry with normal turgor. Normal color with no rashes, no lesions, and no evidence of cellulitis. MS/ Extremity: Pulses equal, no cyanosis. Neurovascular intact. Full, normal range of motion. Neuro: Awake and alert, GCS 15, oriented to person, place, time, and situation. Cranial nerves II-XII grossly intact. Motor strength 5/5 in all extremities. Sensory grossly intact. Cerebellar exam normal. Normal gait. Vital Signs: 11:00 BP 132 / 52; Pulse 50; Resp 20 S; Temp 98.4(TE); Pulse Ox 99% on R/A; Weight 63.5 kg; jg9 Height 6 ft. 0 in. (182.88 cm); Pain 0/10; 12:17 BP 126 / 55; Pulse 46; Resp 18 S; Pulse Ox 100% on R/A; jg9 13:00 BP 135 / 56; Pulse 49; Resp 18 S; Pulse Ox 100% on R/A; jg9 14:00 BP 128 / 57; Pulse 53; Resp 17 S; Pulse Ox 99% on R/A; jg9 15:00 BP 137 / 59; Pulse 63; Resp 17 S; Pulse Ox 98% on R/A; jg9 16:00 BP 132 / 59; Pulse 50; Resp 17 S; Pulse Ox 98% on R/A; jg9 17:00 BP 129 / 52; Pulse 60; Resp 18 S; Pulse Ox 100% on R/A; jg9 19:31 BP 129 / 68; Pulse 52; Resp 18; Pulse Ox 100% on R/A; ss7 21:00 BP 120 / 46; Pulse 50; Resp 18; Pulse Ox 100% on R/A; ss7 22:00 BP 126 / 54; Pulse 50; Resp 18; Pulse Ox 100% on R/A; ss7 22:07 BP 126 / 54; Pulse 50; Resp 18; Pulse Ox 100% on R/A; ss7 11:00 Body Mass Index 18.99 (63.50 kg, 182.88 cm) 9 MDM: 11:35 Patient medically screened. ma2 13:22 Differential diagnosis: urethritis, gastritis, Irritable bowel syndrome, urinary tract ma2 infection. Data reviewed: vital signs, nurses notes. Counseling: I had a detailed discussion with the patient and/or guardian regarding: the historical points, exam findings, and any diagnostic results supporting the discharge/admit diagnosis, the presence of at least one elevated blood pressure reading (>120/80) during this emergency department visit, the need for outpatient follow up. ED course: Patient has UTI, vital signs within normal limits there is no SIRS white count is normal patient is awake alert at this time. Patient does not want a be admitted either way. According to his PCP they requested PICC line to be placed so they can arrange for an outpatient IV antibiotics. 18:03 ED course: Midline is placed, I discussed with PCP nurse practitioner and she advised junior that she is going to order ceftriaxone to be started tomorrow.. 18:22 ED course: PCP, nurse practitioner called me back again and she advised at this time junior that she has been trying to arrange for IV antibiotics at the infusion center, however they just told her at this time that they will not be able to get IV antibiotics tomorrow or Saturday. Earliest possible is Saturday which is 3 days from now. We rediscussed that with the patient again at this time they are agreeable to being admitted. Will admit for iv abx . 18:37 ED course: Patient needs IV antibiotics given the multidrug resistance based on recent ma2 cultures, discussed with hospitalist Jose and he accepted patient for admission.. 09/29 11:26 Order name: CBC with Diff ma2 09/29 11:26 Order name: CMP ma2 09/29 11:26 Order name: Lipase ma2 09/29 11:26 Order name: Urine Microscopic Only ma2 09/29 11:26 Order name: CBC with Automated Diff; Complete Time: 12:46 EDMS 09/29 11:26 Order name: Comprehensive Metabolic Panel; Complete Time: 12:32 EDMS 09/29 11:26 Order name: Lipase; Complete Time: 12:32 EDMS 09/29 11:27 Order name: Urine Microscopic Only; Complete Time: 12:32 EDMS 09/29 12:13 Order name: Urine Dipstick-Ancillary; Complete Time: 12:32 EDAL 09/29 12:30 Order name: Urine Culture [facility] 09/29 17:12 Order name: Chest Single View XRAY; Complete Time: 18:30 [facility] 09/29 19:25 Order name: COVID-19 SARS RT PCR (Document "Date of Onset" if Symptomatic) 2 09/29 11:26 Order name: IV Saline Lock; Complete Time: 11:51 [facility] 09/29 11:26 Order name: Labs collected and sent; Complete Time: 11:51 [facility] 09/29 11:26 Order name: Urine Dipstick-Ancillary (obtain specimen); Complete Time: 12:14 [facility] Administered Medications: 11:51 Drug: NS 0.9% 1000 ml Route: IV; Rate: 1 bolus; Site: left wrist; jg9 13:30 Follow up: IV Status: Completed infusion; IV Intake: 1000ml j9 12:49 Drug: Rocephin (cefTRIAXone) 1 grams Route: IV; Rate: calculated rate; Site: left wrist;jg9 14:06 Follow up: Response: No adverse reaction j9 19:22 Drug: Meropenem 1 grams Route: IV; Rate: calculated rate; Site: left hand; ss7 20:20 Follow up: IV Status: Completed infusion ss7 Disposition Summary: 09/29/21 18:37 Hospitalization Ordered Provider: Prince junior Mckoy Location: Telemetry/MedSurg (observation)(09/29/21 18:37) ma2 Condition: Stable(09/29/21 18:37) ma2 Problem: [facility] Symptoms: are unchanged wi2 Bed/Room Type: Standard [facility] Hospitalization Status: Observation(09/29/21 18:37) wi2 Room Assignment: 229(09/29/21 22:00) Diagnosis - UTI/ Urinary tract infection, site not specified(09/29/21 18:37) [facility] Forms: - Medication Reconciliation Form ma2 - SBAR form wi2 Signatures: Dispatcher [employer] Lynnette Vega RN RN Pritesh Gunderson MD MD wi2 Colleen Castillo RN RN jg9 Sena Richardson RN RN ss7 Corrections: (The following items were deleted from the chart) 18:25 18:02 Home ma2 ma2 18:25 18:02 Stable wi2 wi2 18:25 18:02 UTI/ Urinary tract infection, site not specified ma2 wi2 18:37 18:37 Inpatient Admission ma2 wi2 20:55 12:18 Home Meds: Albuterol Inhl; [facility] 20:55 12:19 Home Meds: ferrous sulfate 325 mg (65 mg iron) Oral tab three times a day; [facility] 20:55 12:19 Home Meds: Lasix 40 mg Oral tab 1 tab 2 times per day; 20/40; [facility] 20:55 12:19 Home Meds: metoprolol tartrate 100 mg Oral tab 2 times per day; 50/100; [facility] 20:55 12:19 Home Meds: Norvasc 10 mg Oral tab once daily; [facility] 20:55 12:19 Home Meds: Novolin 70/30 [place] Sub-Q; [facility] 20:55 12:19 Home Meds: tamsulosin 0.4 mg Oral cap 1 cap; prn; [facility] 20:55 12:19 Home Meds: tramadol 50 mg Oral tab; [facility] 20:55 12:19 Home Meds: trazodone 150 mg Oral tab; [place] [id number] 20:55 20:48 Allergies: Hydrochlorothiazide; [facility] 22:00 18:37 wi2 cg
[2021-09-29] MEDS ORDERED: Meropenem 1000 MG/VIAL IV ONE (19:19)
[2021-09-29] MEDS ORDERED: NA CHLORIDE 0.9% 100 ML IV ONE (19:19)
--- NOTE | 2021-09-29 19:52 | P.HP ---
Certification for Inpatient Patient admitted to: Inpatient With expected LOS: >2 Midnights Patient will require the following post-hospital care: None Practitioner: I am a practitioner with admitting privileges, knowledge of patient current condition, hospital course, and medical plan of care. Services: Services provided to patient in accordance with Admission requirements found in Title 42 Section 412.3 of the Code of Federal Regulations Patient History Date of Service: 09/29/21 Reason for admission: MDR UTI History of Present Illness: 66-year-old male with history of CKD 3, hypertension, chronic diastolic congestive heart failure, diabetes mellitus type 2insulin-dependent, anemia chronic disease and frequent urinary tract infections presents emergency department for generalized weakness, feeling unwell. reports that typically when he is sleeping as much and feeling this way he has urinary tract infection. They discussed this with her home health provider who recommended that they come to the emergency department have a PICC line placed so that they can begin IV antibiotics at home. Patient was seen in the emergency department and evaluated his urine did show that he has urinary tract infection his other labs were similar to his baseline, PICC line was inserted and home health agency was called but they were unable to arrange for IV antibiotics at home over the weekend. After reviewing his previous cultures it was noted that patient has multidrug-resistant UTIs with very few sensitivities will likely require IV treatment for these, for this reason he is to be admitted to the hospital so that IV antibiotics can be arranged at home. Allergies spironolactone Adverse Reaction (Verified 04/02/21 23:03) Anaphylaxis nexen Adverse Reaction (Uncoded 02/08/21 23:48) hallucination Home Medications: Aspirin [Adult Aspirin Regimen] 81 mg FT BEDTIME 06/04/20 Atorvastatin Calcium [Lipitor] 80 mg FT BEDTIME 06/04/20 Amlodipine [Norvasc*] 10 mg FT DAILY 07/16/20 Clopidogrel Bisulfate [Plavix*] 75 mg FT DAILY 07/16/20 Escitalopram [Lexapro*] 40 mg FT DAILY 07/16/20 Gabapentin 300 mg FT BID 07/16/20 Doxazosin [Cardura*] 2 mg FT BEDTIME 30 Days #30 tab 12/08/20 Ascorbic Acid [Vitamin C] 1,000 mg FT BID 12/16/20 Sucralfate [Carafate] 100 mg FT SEECOM 12/16/20 Trazodone HCl 150 tab FT BEDTIME 12/16/20 Insulin -Regular Human [Novolin -R*] 100 units SQ ACHS 04/02/21 Ferrous Sulfate [Ferrous Sulfate Elixir*] 220 mg FT BID 06/10/21 Nut.tx.impaired Renal Fxn,Soy [Nepro Carb Steady] 360 mg FT QID 06/10/21 Ondansetron [Ondansetron Odt] 4 mg FT Q8H PRN 06/10/21 Promethazine Tab [Phenergan*] 25 mg FT Q6H PRN 06/10/21 Tamsulosin [Flomax*] 0.4 mg PO DAILY 06/10/21 Benzonatate 1 cap PO TID 08/25/21 Chlorthalidone [Hygroton 25mg Tab*] 25 mg PO DAILY tab 09/12/21 Hydralazine [Apresoline*] 10 mg PO BID #30 tab 09/12/21 - Past Medical/Surgical History Diabetic: Yes -: Diabetes mellitus type 2, insulin-dependent -: CAD -: Hypertension -: Hyperlipidemia -: COPD -: Tobacco abuse -: Fracture t12 L3 -: PEG tube -: CKD 3 -: seizures -: Stroke -: Chronic diastolic congestive -: Knee surgery -: I&D lower right buttock -: hiatal hernia repair -: I and D to the left foot -: Left Bipolar Hemiarthroplasty 04/06/19 -: Hip surgery -: CABG -: hand sx, PEG Psychosocial/ Personal History: Patient is single. He lives with his son. - Family History Father -: Heart disease, Hypertension, Lung disease, GI disease, Diabetes, Cancer, Other (see notes) Notes: parkinson's disease Mother -: Heart disease, Hypertension, Diabetes, Cancer Sister -: Cancer - Social History Alcohol use: No CD- Drugs: No Caffeine use: Yes Place of Residence: Home Review of Systems 10-point ROS is otherwise unremarkable General: Weakness, Malaise Physical Examination - Physical Exam General: Alert, In no apparent distress, Oriented x3 HEENT: Atraumatic, PERRLA, Mucous membr. moist/pink, EOMI, Sclerae nonicteric Neck: Supple, 2+ carotid pulse no bruit, No LAD, Without JVD or thyroid abnormality Respiratory: Clear to auscultation bilaterally, Normal air movement Cardiovascular: Regular rate/rhythm, Normal S1 S2 Capillary refill: <2 Seconds Gastrointestinal: Normal bowel sounds, No tenderness Musculoskeletal: No tenderness Integumentary: No rashes Neurological: Normal speech, Normal tone, Normal affect Urinary: Holcomb catheter - Studies Laboratory Data (last 24 hrs) 09/29/21 11:50: Sodium 140, Potassium 3.9, BUN 82 H, Creatinine 2.44 H, Glucose 91, Total Bilirubin 0.4, AST 20, ALT 31, Alkaline Phosphatase 105, Lipase 92 09/29/21 11:50: WBC 5.20, Hgb 10.6 L, Hct 33.2 L, Plt Count 120 L Assessment and Plan - Plan Assessment: Complicated UTI Chronic diastolic congestive heart failure CKD 3 Diabetes mellitus type 2insulin-dependent Hypertension Anemia of chronic disease Plan: Complicated UTI: Patient with chronic indwelling Holcomb catheter recently changed a couple of days ago, history of multidrug-resistant UTIs in the past. Patient had PICC line inserted while he was in the emergency department but they were unable to arrange for home IV antibiotics. disabilities services officer consult in place, IV meropenem ordered based on previous cultures and sensitivities. Chronic diastolic congestive heart failure: Volume status appears to be stable at this time continue p.o. intake. Obtaining continue home medications as appropriate CKD 3: Nephrology on board to help manage volume status, CKD/CHF. Diabetes mellitus type 2insulin-dependent: ACH S Accu-Chek, sliding scale insulin. Hypertension: Obtain and continue medications Anemia of chronic disease: Hemoglobin improved from baseline, continue to monitor. DVT PPX:heparin Code status:DNR Discharge Plan: Home Plan to discharge in: 48 Hours - Advance Directives Does patient have a Living Will: No Does patient have a Durable POA for Healthcare: Yes - Code Status/Comfort Care Code Status Assessed: Yes (DNR) Critical Care: No Time Spent Managing Pts Care (In Minutes): 55
[2021-09-29] MEDS: INSULIN -REGULAR HUMAN 50 UNIT/0.5 ML ML SQ SCH (23:44)
[2021-09-29] MEDS: HEPARIN 5000 UNIT/ML 1 ML VIAL SQ SCH (23:50)
[2021-09-30] MEDS ORDERED: Meropenem 1,000 MG in NA CHLORIDE 0.9% 100 ML IV SCH (01:00)
[2021-09-30 01:01] VITALS: BMI 19.0
[2021-09-30 06:33] LABS: Albumin 2.2 g/dL (3.4-5.0); Bilirubin Total 0.2 mg/dL (0.2-1.0); Potassium 3.9 mmol/L (3.5-5.1); Protein, Total 5.9 g/dL (6.4-8.2)
[2021-09-30 06:58] LABS: Absolute Lymphocytes (CBC) 0.7 K/uL (0.7-4.9); Hematocrit 22.4 % (39.6-49.0); Lymphocytes % 9.7 % (15.3-44.8); MPV 10.5 fL (7.6-11.3); RBC Red Blood Cell Count 3.11 M/uL (4.33-5.43)
[2021-09-30] MEDS: INSULIN -REGULAR HUMAN 50 UNIT/0.5 ML ML SQ SCH ×4 (07:30→21:00)
[2021-09-30] MEDS ORDERED: Meropenem 1000 MG/VIAL IV ONE (09:16)
[2021-09-30] MEDS ORDERED: NA CHLORIDE 0.9% 100 ML ONE (09:22)
[2021-09-30] MEDS: Meropenem 1,000 MG in NA CHLORIDE 0.9% 100 ML IV SCH ×2 (09:23→22:19)
[2021-09-30] MEDS: HEPARIN 5000 UNIT/ML 1 ML VIAL SQ SCH ×2 (09:23→22:19)
--- NOTE | 2021-09-30 10:25 | P.PN ---
Subjective Date of Service: 09/30/21 Chief Complaint: MDR UTI Subjective: Improving Physical Examination - Vital Signs Temperature: 98.0 F Blood Pressure: 136/63 Pulse: 56 Respirations: 16 Pulse Ox (%): 98 - Physical Exam General: In no apparent distress, Cooperative, Other (frail) HEENT: Atraumatic, Normocephalic Respiratory: Clear to auscultation bilaterally, Normal air movement Cardiovascular: Regular rate/rhythm, Normal S1 S2, Other (PICC line in place) Neurological: Normal speech, Normal affect - Studies Laboratory Data (last 24 hrs) 09/29/21 11:50: Sodium 140, Potassium 3.9, BUN 82 H, Creatinine 2.44 H, Glucose 91, Total Bilirubin 0.4, AST 20, ALT 31, Alkaline Phosphatase 105, Lipase 92 09/29/21 11:50: WBC 5.20, Hgb 10.6 L, Hct 33.2 L, Plt Count 120 L Assessment And Plan - Current Problems (Diagnosis) (1) Generalized weakness Current Visit: Yes Status: Acute (2) BPH (benign prostatic hyperplasia) Current Visit: No Status: Acute (3) Bradycardia Current Visit: No Status: Acute (4) Cachexia Current Visit: No Status: Acute (5) Cardiomyopathy Current Visit: No Status: Acute Physician Review Additional Text: 09/30/21 10:22 Assessment Patient is a 66 year old male urged by his home health service to present to the ER for evaluation of generalized weakness and increased sleepiness. He was found to have a UTI. A picc line was placed to be started on empiric antibiotics. However, since this could not be coordinated by home health, he was admitted. UTI Generalized weakness Anemia of chronic disease CKD stage IV PLAN: Patient has responded to Meropenem, which was chosen based on past Ucx Check for iron panel Repeat CBC tomorrow and transfuse if Hb < 7 Continue DVT ppx with Heparin subc Avoid nephrotoxins
[2021-09-30 10:59] LABS: Ferritin 1580.8 ng/mL (26-388)
[2021-09-30] MEDS ORDERED: NEPRO SHAKE 237 ML CAN PO SCH (12:00)
[2021-09-30] MEDS: NEPRO SHAKE 237 ML CAN PO SCH ×3 (12:36→23:11)
[2021-09-30] MEDS: SUCRALFATE 1GM/10ML UCUP FT SCH ×3 (12:38→22:18)
[2021-09-30] MEDS: HYDRALAZINE HCL 10 MG TABLET PO SCH ×2 (12:38→22:18)
[2021-09-30] MEDS ORDERED: HOME MED 1 EA UNK (Ondansetron Hcl [Ondansetron Hcl] 4 MG Tablet) PO PRN (14:23)
[2021-09-30] MEDS ORDERED: TRAMADOL HCL 50 MG TAB PO PRN (14:24)
[2021-09-30] MEDS ORDERED: ONDANSETRON 4 MG (ODT) TAB PO PRN (14:37)
--- NOTE | 2021-09-30 20:01 | CON ---
Date of Consultation: 09/30/2021 Requesting Provider: Dr. Prince Mckoy. Reason For Consultation: Renal insufficiency. History Of Present Illness: Mr. Anderson is a 66-year-old male with a history of stage IV chronic kidn ey disease with baseline creatinine of 2.2 to 2.6, who presented to the hospital with weakness and fa tigue and was sent to the hospital due to having multidrug-resistant UTIs. The patient is currently being changed by staff in the bed. Objective: Vital Signs: Blood pressure 129/60, pulse 60, afebrile. General: Cachectic, no acute distress. Laboratory Data: CBC; hemoglobin 10.6, hematocrit 33.2 on admission, however, today, hemoglobin 7.2, hematocrit 22.4. Serum chemistry; BUN 86, creatinine 2.44. Iron studies were undertaken, which nichol w adequate iron levels. Albumin is 2.2. UA was reviewed and does show evidence of urinary tract inf ection. Microbiology data is pending. Current Medications: Reviewed. Impression: 1.Chronic kidney disease stage IIIB/IV. 2.Recurrent urinary tract infections. 3.Chronic indwelling Holcomb catheter with biopsy showing class 4 diabetic glomerulosclerosis. 4.Diabetes mellitus type 2. 5.Hypertension. 6.Anemia of chronic disease with acute drop. Plan: Renal function is stable, although progressing over the past year. There is no indication for renal replacement therapy at this time. We will encourage nutrition and p.o. intake. If p.o. intak e is poor, we would recommend starting LR at 75 mL/hr. Continue antibiotics and follow up cultures. The patient did have a drop in anemia, however, no apparent obvious history of bleeding. We would r ecommend repeat CBC, and if indicated, we will start KAIA as the patient does have adequate iron level s. SE/MODL Voice ID: [id number] Report ID: [id number]
[2021-09-30] MEDS: DOXAZOSIN 2 MG TAB FT SCH (21:00)
[2021-09-30] MEDS ORDERED: HOME MED 1 EA UNK (Ascorbic Acid [Vitamin C] 1,000 MG Tablet) FT SCH (21:00)
[2021-09-30] MEDS: TRAZODONE 150 MG TAB FT SCH (21:00)
[2021-09-30] MEDS ORDERED: HOME MED 1 EA UNK (Trazodone Hcl [Trazodone Hcl] 100 MG Tablet) FT SCH (21:00)
[2021-09-30] MEDS: ASCORBIC ACID 500 MG TABLET FT SCH (22:17)
[2021-09-30] MEDS: BENZONATATE 100 MG CAP PO SCH (22:18)
[2021-09-30] MEDS: ATORVASTATIN 80 MG TAB FT SCH (22:18)
[2021-09-30] MEDS: FUROSEMIDE 20 MG TABLET PO SCH (22:18)
[2021-09-30] MEDS: GABAPENTIN 300 MG CAP FT SCH (22:18)
[2021-10-01] MEDS: ONDANSETRON 4 MG/2 ML VIAL IV PRN ×2 (01:09→18:24)
[2021-10-01 05:32] VITALS: O2SAT 97
[2021-10-01 05:51] LABS: Absolute Lymphocytes (CBC) 0.7 K/uL (0.7-4.9); Hematocrit 21.1 % (39.6-49.0); Lymphocytes % 9.5 % (15.3-44.8); RBC Red Blood Cell Count 2.97 M/uL (4.33-5.43)
[2021-10-01 06:18] LABS: Albumin 2.3 g/dL (3.4-5.0); Bilirubin Total 0.2 mg/dL (0.2-1.0); Potassium 4.5 mmol/L (3.5-5.1)
[2021-10-01] MEDS: INSULIN -REGULAR HUMAN 50 UNIT/0.5 ML ML SQ SCH ×4 (07:30→21:00)
[2021-10-01] MEDS: SUCRALFATE 1GM/10ML UCUP FT SCH ×4 (08:00→20:00)
[2021-10-01] MEDS ORDERED: CLOPIDOGREL 75 MG TABLET FT SCH (09:00)
[2021-10-01] MEDS ORDERED: ASPIRIN EC 81 MG TAB PO SCH (09:00)
[2021-10-01] MEDS: NEPRO SHAKE 237 ML CAN PO SCH ×4 (09:00→21:00)
[2021-10-01] MEDS ORDERED: Meropenem 1000 MG/VIAL IV ONE (09:52)
[2021-10-01] MEDS: BENZONATATE 100 MG CAP PO SCH ×2 (09:53→22:41)
[2021-10-01] MEDS: ESCITALOPRAM 20 MG TAB FT SCH (09:53)
[2021-10-01] MEDS: ASCORBIC ACID 500 MG TABLET FT SCH ×2 (09:53→22:42)
[2021-10-01] MEDS: GABAPENTIN 300 MG CAP FT SCH ×2 (09:54→22:44)
[2021-10-01] MEDS: TAMSULOSIN 0.4 MG SR CAP PO SCH (09:54)
[2021-10-01] MEDS: FUROSEMIDE 20 MG TABLET PO SCH ×2 (09:54→23:02)
[2021-10-01] MEDS: AMLODIPINE 5 MG TAB FT SCH (09:54)
[2021-10-01] MEDS: Meropenem 1,000 MG in NA CHLORIDE 0.9% 100 ML IV SCH ×2 (09:55→22:43)
[2021-10-01] MEDS: HYDRALAZINE HCL 10 MG TABLET PO SCH ×2 (10:02→23:03)
[2021-10-01] MEDS ORDERED: NA CHLORIDE 0.9% 250 ML ONE (10:03)
--- NOTE | 2021-10-01 10:04 | P.PN ---
Subjective Date of Service: 10/01/21 Chief Complaint: MDR UTI Subjective: Other (Hb dropped to 6.7. Ucx with MDR pseudomonas) Physical Examination - Vital Signs Temperature: 97.8 F Blood Pressure: 132/67 Pulse: 64 Respirations: 16 Pulse Ox (%): 97 - Physical Exam General: Cooperative, Other (physically deconditioned, extremily dry skin) HEENT: Atraumatic, Normocephalic Respiratory: Clear to auscultation bilaterally, Normal air movement Cardiovascular: Regular rate/rhythm, Normal S1 S2 Gastrointestinal: Soft and benign, Non-distended Musculoskeletal: No clubbing, No swelling, No contractures, No erythema Neurological: Normal speech, Normal affect Assessment And Plan - Current Problems (Diagnosis) (1) Generalized weakness Current Visit: Yes Status: Acute (2) BPH (benign prostatic hyperplasia) Current Visit: No Status: Acute (3) Bradycardia Current Visit: No Status: Acute (4) Cachexia Current Visit: No Status: Acute (5) Cardiomyopathy Current Visit: No Status: Acute Physician Review Additional Text: 09/30/21 10:22 Assessment Patient is a 66 year old male urged by his home health service to present to the ER for evaluation of generalized weakness and increased sleepiness. He was found to have a UTI. A picc line was placed to be started on empiric antibiotics. However, since this could not be coordinated by home health, he was admitted. UTI Generalized weakness Anemia of chronic disease CKD stage IV PLAN: Transfuse 1 pRBC for a Hb of 6.7 Nephrology to assess need for EPO Follow up FOBT DC DAPT and Hep subc Ucx with MDR Pseudomonas sensitive to Meropenem, and Enteroccocus faecalis Day 1 of IV Vancomycin SCD for DVT ppx Avoid nephrotoxins Change status to inpatient 10/01/21 14:29
[2021-10-01] MEDS ORDERED: VANCOMYCIN 1 GM in NA CHLORIDE 0.9% 250 ML IVPB SCH ×2 (14:26→16:00)
[2021-10-01] MEDS: VANCOMYCIN 1.25 GM in NA CHLORIDE 0.9% 250 ML IVPB SCH (16:30)
[2021-10-01 17:20] LABS: Absolute Lymphocytes (CBC) 0.5 K/uL (0.7-4.9); Hematocrit 24.6 % (39.6-49.0); Lymphocytes % 6.2 % (15.3-44.8); MPV 10.5 fL (7.6-11.3); RBC Red Blood Cell Count 3.38 M/uL (4.33-5.43)
[2021-10-01] MEDS: TRAZODONE 150 MG TAB FT SCH (21:00)
[2021-10-01] MEDS: ATORVASTATIN 80 MG TAB FT SCH (22:43)
[2021-10-01] MEDS: DOXAZOSIN 2 MG TAB FT SCH (23:01)
[2021-10-02 04:13] LABS: Absolute Lymphocytes (CBC) 0.7 K/uL (0.7-4.9); Lymphocytes % 9.9 % (15.3-44.8); MPV 10.3 fL (7.6-11.3); RBC Red Blood Cell Count 3.29 M/uL (4.33-5.43)
[2021-10-02] MEDS: INSULIN -REGULAR HUMAN 50 UNIT/0.5 ML ML SQ SCH ×4 (07:30→20:41)
[2021-10-02] MEDS: NEPRO SHAKE 237 ML CAN PO SCH ×4 (09:00→20:40)
[2021-10-02] MEDS: SUCRALFATE 1GM/10ML UCUP FT SCH ×4 (09:12→20:39)
[2021-10-02] MEDS: ESCITALOPRAM 20 MG TAB FT SCH (09:13)
[2021-10-02] MEDS: AMLODIPINE 5 MG TAB FT SCH (09:13)
[2021-10-02] MEDS: BENZONATATE 100 MG CAP PO SCH ×2 (09:13→20:39)
[2021-10-02] MEDS: HYDRALAZINE HCL 10 MG TABLET PO SCH ×2 (09:13→20:39)
[2021-10-02] MEDS: FUROSEMIDE 20 MG TABLET PO SCH ×2 (09:13→20:39)
[2021-10-02] MEDS: ASCORBIC ACID 500 MG TABLET FT SCH ×2 (09:13→20:40)
[2021-10-02] MEDS: TAMSULOSIN 0.4 MG SR CAP PO SCH (09:13)
[2021-10-02] MEDS: GABAPENTIN 300 MG CAP FT SCH ×2 (09:14→20:39)
[2021-10-02] MEDS: Meropenem 1,000 MG in NA CHLORIDE 0.9% 100 ML IV SCH ×2 (09:14→20:40)
[2021-10-02] MEDS: ATORVASTATIN 80 MG TAB FT SCH (20:38)
[2021-10-02] MEDS: TRAZODONE 150 MG TAB FT SCH (20:38)
[2021-10-02] MEDS: DOXAZOSIN 2 MG TAB FT SCH (20:38)
[2021-10-03] MEDS: VANCOMYCIN 1.25 GM in NA CHLORIDE 0.9% 250 ML IVPB SCH (05:18)
[2021-10-03 05:34] LABS: Absolute Lymphocytes (CBC) 0.7 K/uL (0.7-4.9); Hematocrit 24.9 % (39.6-49.0); Lymphocytes % 8.6 % (15.3-44.8); MPV 10.1 fL (7.6-11.3); RBC Red Blood Cell Count 3.41 M/uL (4.33-5.43)
[2021-10-03 05:53] LABS: Magnesium 2.7 mg/dL (1.8-2.4)
[2021-10-03] MEDS: INSULIN -REGULAR HUMAN 50 UNIT/0.5 ML ML SQ SCH ×4 (07:30→20:56)
[2021-10-03] MEDS: SUCRALFATE 1GM/10ML UCUP FT SCH ×4 (09:06→20:11)
[2021-10-03] MEDS: ASCORBIC ACID 500 MG TABLET FT SCH ×2 (09:07→20:11)
[2021-10-03] MEDS: AMLODIPINE 5 MG TAB FT SCH (09:07)
[2021-10-03] MEDS: GABAPENTIN 300 MG CAP FT SCH ×2 (09:07→20:11)
[2021-10-03] MEDS: ESCITALOPRAM 20 MG TAB FT SCH (09:07)
[2021-10-03] MEDS: BENZONATATE 100 MG CAP PO SCH ×2 (09:07→20:11)
[2021-10-03] MEDS: TAMSULOSIN 0.4 MG SR CAP PO SCH (09:07)
[2021-10-03] MEDS: FUROSEMIDE 20 MG TABLET PO SCH (09:07)
[2021-10-03] MEDS: Meropenem 1,000 MG in NA CHLORIDE 0.9% 100 ML IV SCH ×2 (09:08→20:56)
[2021-10-03] MEDS: NEPRO SHAKE 237 ML CAN PO SCH ×4 (09:09→20:56)
[2021-10-03] MEDS: HYDRALAZINE HCL 10 MG TABLET PO SCH ×2 (09:14→20:56)
--- NOTE | 2021-10-03 18:45 | P.PN ---
Date of Service: 10/02/21 Vital Signs Temp Pulse Resp BP Pulse Ox 97.9 F 57 16 136/65 97 10/03/21 16:00 10/03/21 16:00 10/03/21 16:00 10/03/21 16:00 10/03/21 16:00 Medications Amlodipine Besylate (Amlodipine 5 Mg Tab) 10 mg FT DAILY [facility] Last Admin: 10/03/21 09:07 Dose: 10 mg Documented by: Ascorbic Acid (Ascorbic Acid 500 Mg Tablet) 1,000 mg FT BID [facility] Last Admin: 10/03/21 09:07 Dose: 1,000 mg Documented by: Atorvastatin Calcium (Atorvastatin 80 Mg Tab) 80 mg FT BEDTIME [facility] Last Admin: 10/02/21 20:38 Dose: 80 mg Documented by: Benzonatate (Benzonatate 100 Mg Cap) 100 mg PO BID [facility] Last Admin: 10/03/21 09:07 Dose: 100 mg Documented by: Doxazosin Mesylate (Doxazosin 2 Mg Tab) 2 mg FT BEDTIME [facility] Last Admin: 10/02/21 20:38 Dose: 2 mg Documented by: Enteral Nutritional Formula (Nepro Shake 237 Ml Can) 1 ml PO QID [facility] Last Admin: 10/03/21 16:01 Dose: 1 ml Documented by: Escitalopram Oxalate (Escitalopram 20 Mg Tab) 40 mg FT DAILY [facility] Last Admin: 10/03/21 09:07 Dose: 40 mg Documented by: Furosemide (Furosemide 20 Mg Tablet) 20 mg PO BID [facility] Last Admin: 10/03/21 09:07 Dose: 20 mg Documented by: Gabapentin (Gabapentin 300 Mg Cap) 300 mg FT BID [facility] Last Admin: 10/03/21 09:07 Dose: 300 mg Documented by: Hydralazine HCl (Hydralazine Hcl 10 Mg Tablet) 10 mg PO BID [facility] Last Admin: 10/03/21 09:14 Dose: 10 mg Documented by: Meropenem 1,000 mg/ Sodium (Chloride) 100 mls @ 200 mls/hr IV Q12HR [facility] Last Admin: 10/03/21 09:08 Dose: 100 mls Documented by: Insulin Human Regular (Insulin -Regular Human 50 Unit/0.5 Ml Ml) 0 unit SQ ACHS [facility]; Protocol Last Admin: 10/03/21 16:01 Dose: 2 unit Documented by: L-Arginine/L-Glutamine/HMB (Bryan Packet) 1 pkt PO BID [facility] Ondansetron HCl (Ondansetron 4 Mg/2 Ml Vial) 4 mg IV Q6HP PRN PRN Reason: NAUSEA / VOMITING Last Admin: 10/01/21 18:24 Dose: 4 mg Documented by: Ondansetron HCl (Ondansetron 4 Mg (Odt) Tab) 4 mg PO Q8H PRN PRN Reason: NAUSEA / VOMITING Sodium Chloride (Flush Normal Saline 10 Ml) 10 ml IV BID [facility] Last Admin: 10/03/21 09:00 Dose: 10 ml Documented by: Sucralfate (Sucralfate 1gm/10ml Ucup) 1 gm FT 0800,1200,1700,2000 [facility] Last Admin: 10/03/21 16:00 Dose: 1 gm Documented by: Tamsulosin HCl (Tamsulosin 0.4 Mg Sr Cap) 0.4 mg PO DAILY [facility] Last Admin: 10/03/21 09:07 Dose: 0.4 mg Documented by: Tramadol HCl (Tramadol Hcl 50 Mg Tab) 50 mg PO Q4H PRN PRN Reason: Pain scale 5-7 (Moderate) Trazodone HCl (Trazodone 150 Mg Tab) 150 mg FT BEDTIME [facility] Last Admin: 10/02/21 20:38 Dose: 150 mg Documented by: Microbiology Results 09/29/21 12:10 Clean Catch Urine [place] Count - Final >100,000 CFU/ML. 09/29/21 12:10 Clean Catch Urine - Final Pseudomonas Aeruginosa Enterococcus Faecalis Assessment/ Plan: Nephrology No dyspnea No chest pain Fatigue No acute events overnight Vitals, medications, blood work and imaging reviewed in the chart. NAD. NCAT. MMM. Neck supple. Normal respiratory effort. RRR. Abd ND, PEG. No C/C. Hip Edema 1+. No rash. AAO. Normal speech. OSCAR may be due to diuresis CKD III with proteinuria -No NSAIDs -Reduce furosemide daily HTN with CKD/ CHF -Continue Amlodipine Diastolic CHF, chronic -Low sodium diet -Furosemide daily DM II with CKD -RISS Moderate malnutrition -Continue tube feeds Anemia in chronic illness -Monitor H&H -Retacrit X1 BPH with LUTS Urinary Retention -Continue hernandez CKD MBD -Start Calcitriol
[2021-10-03] MEDS ORDERED: EPOETIN ALFA-EPBX 10,000 UNIT/ML VIAL SQ ONE (18:53)
--- NOTE | 2021-10-03 18:58 | P.PN ---
Date of Service: 10/03/21 Vital Signs Temp Pulse Resp BP Pulse Ox 97.9 F 57 16 136/65 97 10/03/21 16:00 10/03/21 16:00 10/03/21 16:00 10/03/21 16:00 10/03/21 16:00 Medications Amlodipine Besylate (Amlodipine 5 Mg Tab) 10 mg FT DAILY [facility] Last Admin: 10/03/21 09:07 Dose: 10 mg Documented by: Ascorbic Acid (Ascorbic Acid 500 Mg Tablet) 1,000 mg FT BID [facility] Last Admin: 10/03/21 09:07 Dose: 1,000 mg Documented by: Atorvastatin Calcium (Atorvastatin 80 Mg Tab) 80 mg FT BEDTIME [facility] Last Admin: 10/02/21 20:38 Dose: 80 mg Documented by: Benzonatate (Benzonatate 100 Mg Cap) 100 mg PO BID [facility] Last Admin: 10/03/21 09:07 Dose: 100 mg Documented by: Calcitriol (Calcitrol 0.25 Mcg Cap) 0.5 mcg PO DAILY [facility] Doxazosin Mesylate (Doxazosin 2 Mg Tab) 2 mg FT BEDTIME [facility] Last Admin: 10/02/21 20:38 Dose: 2 mg Documented by: Enteral Nutritional Formula (Nepro Shake 237 Ml Can) 1 ml PO QID [facility] Last Admin: 10/03/21 16:01 Dose: 1 ml Documented by: Escitalopram Oxalate (Escitalopram 20 Mg Tab) 40 mg FT DAILY [facility] Last Admin: 10/03/21 09:07 Dose: 40 mg Documented by: Furosemide (Furosemide 20 Mg Tablet) 20 mg PO DAILY [facility] Gabapentin (Gabapentin 300 Mg Cap) 300 mg FT BID [facility] Last Admin: 10/03/21 09:07 Dose: 300 mg Documented by: Hydralazine HCl (Hydralazine Hcl 10 Mg Tablet) 10 mg PO BID [facility] Last Admin: 10/03/21 09:14 Dose: 10 mg Documented by: Meropenem 1,000 mg/ Sodium (Chloride) 100 mls @ 200 mls/hr IV Q12HR [facility] Last Admin: 10/03/21 09:08 Dose: 100 mls Documented by: Insulin Human Regular (Insulin -Regular Human 50 Unit/0.5 Ml Ml) 0 unit SQ ACHS [facility]; Protocol Last Admin: 10/03/21 16:01 Dose: 2 unit Documented by: L-Arginine/L-Glutamine/HMB (Bryan Packet) 1 pkt PO BID [facility] Ondansetron HCl (Ondansetron 4 Mg/2 Ml Vial) 4 mg IV Q6HP PRN PRN Reason: NAUSEA / VOMITING Last Admin: 10/01/21 18:24 Dose: 4 mg Documented by: Ondansetron HCl (Ondansetron 4 Mg (Odt) Tab) 4 mg PO Q8H PRN PRN Reason: NAUSEA / VOMITING Sodium Chloride (Flush Normal Saline 10 Ml) 10 ml IV BID [facility] Last Admin: 10/03/21 09:00 Dose: 10 ml Documented by: Sucralfate (Sucralfate 1gm/10ml Ucup) 1 gm FT 0800,1200,1700,2000 [facility] Last Admin: 10/03/21 16:00 Dose: 1 gm Documented by: Tamsulosin HCl (Tamsulosin 0.4 Mg Sr Cap) 0.4 mg PO DAILY [facility] Last Admin: 10/03/21 09:07 Dose: 0.4 mg Documented by: Tramadol HCl (Tramadol Hcl 50 Mg Tab) 50 mg PO Q4H PRN PRN Reason: Pain scale 5-7 (Moderate) Trazodone HCl (Trazodone 150 Mg Tab) 150 mg FT BEDTIME [facility] Last Admin: 10/02/21 20:38 Dose: 150 mg Documented by: Microbiology Results 09/29/21 12:10 Clean Catch Urine [place] Count - Final >100,000 CFU/ML. 09/29/21 12:10 Clean Catch Urine - Final Pseudomonas Aeruginosa Enterococcus Faecalis Assessment/ Plan: Nephrology No dyspnea No chest pain Fatigue No acute events overnight Vitals, medications, blood work and imaging reviewed in the chart. NAD. NCAT. MMM. Neck supple. Normal respiratory effort. RRR. Abd ND, PEG. No C/C. Hip Edema 1+. No rash. AAO. Normal speech. OSCAR may be due to diuresis CKD III with proteinuria -No NSAIDs -Furosemide daily HTN with CKD/ CHF -Continue Amlodipine Diastolic CHF, chronic -Low sodium diet -Furosemide daily DM II with CKD -RISS Moderate malnutrition -Continue tube feeds Anemia in chronic illness -Monitor H&H -Retacrit prn BPH with LUTS Urinary Retention -Continue hernandez CKD MBD -Continue Calcitriol Case reviewed with Dr. Seth
[2021-10-03] MEDS: ATORVASTATIN 80 MG TAB FT SCH (20:11)
[2021-10-03] MEDS: JUVEN PACKET PO SCH (20:13)
[2021-10-03] MEDS: TRAZODONE 150 MG TAB FT SCH (20:25)
[2021-10-03] MEDS: DOXAZOSIN 2 MG TAB FT SCH (20:34)
[2021-10-04 05:33] LABS: Absolute Lymphocytes (CBC) 0.6 K/uL (0.7-4.9); Hematocrit 24.6 % (39.6-49.0); Lymphocytes % 6.7 % (15.3-44.8); MPV 10.3 fL (7.6-11.3); RBC Red Blood Cell Count 3.41 M/uL (4.33-5.43)
[2021-10-04 05:49] LABS: Albumin 2.5 g/dL (3.4-5.0); Bilirubin Total 0.3 mg/dL (0.2-1.0); Magnesium 2.8 mg/dL (1.8-2.4); Phosphorus 4.1 mg/dL (2.5-4.9); Potassium 4.9 mmol/L (3.5-5.1); Protein, Total 6.4 g/dL (6.4-8.2); Uric Acid 7.5 mg/dL (3.5-7.2)
[2021-10-04] MEDS ORDERED: NA CHLORIDE 0.9% 250 ML IV ONE (06:29)
[2021-10-04] MEDS: NA CHLORIDE 0.9% 1,000 ML IV SCH ×2 (06:40→21:42)
[2021-10-04] MEDS: INSULIN -REGULAR HUMAN 50 UNIT/0.5 ML ML SQ SCH ×4 (07:30→20:04)
[2021-10-04 08:16] LABS: Urine Color YELLOW (Yellow)
[2021-10-04 08:17] LABS: Urine Appearance CLOUDY (Clear); Urine Bilirubin NEGATIVE (Negative); Urine Blood TRACE (Negative); Urine Glucose NEGATIVE (Negative); Urine Protein 3+ (Negative); Urine Urobilinogen 0.2 mg/dL (0.2-1.0); Urine pH 5.5 (5.0-7.0)
[2021-10-04 08:30] LABS: Urine RBC <5 /HPF (NONE SEEN)
[2021-10-04 08:31] LABS: Urine Bacteria >50 /HPF (NONE SEEN); Urine Yeast MANY (NONE SEEN)
[2021-10-04 08:52] LABS: UR PROTEIN 399.9 mg/dL (<11.9); Urine Protein/Creatinine Ratio 6.89 ratio (<0.15)
[2021-10-04] MEDS: JUVEN PACKET PO SCH ×2 (09:00→20:51)
[2021-10-04] MEDS: NEPRO SHAKE 237 ML CAN PO SCH ×4 (09:00→20:51)
--- NOTE | 2021-10-04 09:09 | P.PN ---
Date of Service: 10/02/21 Subjective MDR with Pseudomonas aeruginosa; PICC line placed and waiting for DC home Physical Examination - Vital Signs reviewed - Physical Exam General: Cooperative, Other (physically deconditioned, extremily dry skin) Respiratory: Clear to auscultation bilaterally, Normal air movement Cardiovascular: Regular rate/rhythm, Normal S1 S2 Gastrointestinal: Soft and benign, Non-distended Musculoskeletal: No clubbing, No swelling, No contractures, No erythema Neurological: Normal speech, Normal affect Assessment And Plan - Current Problems (Diagnosis) (1) Generalized weakness Current Visit: Yes Status: Acute (2) BPH (benign prostatic hyperplasia) Current Visit: No Status: Acute (3) Bradycardia Current Visit: No Status: Acute (4) Cachexia Current Visit: No Status: Acute (5) Cardiomyopathy Current Visit: No Status: Acute Physician Review Additional Text: Assessment 1. UTI 2. Generalized weakness 3. Anemia of chronic disease 4. CKD stage IV PLAN: -Transfuse 1 PRBC for a Hb of 6.7 -Nephrology to assess need for EPO -Follow up FOBT -DC DAPT and Hep subc -Ucx with MDR Pseudomonas sensitive to Meropenem, and Enteroccocus faecalis -Day 1 of IV Vancomycin -SCD for DVT ppx -Avoid nephrotoxins -Change status to inpatient
--- NOTE | 2021-10-04 09:10 | P.PN ---
Date of Service: 10/03/21 Subjective MDR with Pseudomonas aeruginosa; PICC line placed and waiting for DC home; possibly [facility] trasnfer; if not then DC home with IV antibiotics x 10 days Physical Examination - Vital Signs reviewed - Physical Exam General: Cooperative, Other (physically deconditioned, extremily dry skin) Respiratory: Clear to auscultation bilaterally, Normal air movement Cardiovascular: Regular rate/rhythm, Normal S1 S2 Gastrointestinal: Soft and benign, Non-distended Musculoskeletal: No clubbing, No swelling, No contractures, No erythema Neurological: Normal speech, Normal affect Assessment And Plan - Current Problems (Diagnosis) (1) Generalized weakness Current Visit: Yes Status: Acute (2) BPH (benign prostatic hyperplasia) Current Visit: No Status: Acute (3) Bradycardia Current Visit: No Status: Acute (4) Cachexia Current Visit: No Status: Acute (5) Cardiomyopathy Current Visit: No Status: Acute Physician Review Additional Text: Assessment: 1. UTI 2. Generalized weakness 3. Anemia of chronic disease 4. CKD stage IV PLAN: -Transfuse 1 PRBC for a Hb of 6.7 -Nephrology to assess need for EPO -Follow up FOBT -DC DAPT and Hep subc -Ucx with MDR Pseudomonas sensitive to Meropenem, and Enteroccocus faecalis -Day 1 of IV Vancomycin -SCD for DVT ppx -Avoid nephrotoxins -Change status to inpatient
[2021-10-04] MEDS: HYDRALAZINE HCL 10 MG TABLET PO SCH ×2 (10:16→20:51)
[2021-10-04] MEDS: AMLODIPINE 5 MG TAB FT SCH (10:16)
[2021-10-04] MEDS: Meropenem 1,000 MG in NA CHLORIDE 0.9% 100 ML IV SCH ×2 (10:16→20:51)
[2021-10-04] MEDS: TAMSULOSIN 0.4 MG SR CAP PO SCH (10:17)
[2021-10-04] MEDS: ESCITALOPRAM 20 MG TAB FT SCH (10:17)
[2021-10-04] MEDS: CALCITROL 0.25 MCG CAP PO SCH (10:17)
[2021-10-04] MEDS: SUCRALFATE 1GM/10ML UCUP FT SCH ×4 (10:18→20:51)
[2021-10-04] MEDS: ASCORBIC ACID 500 MG TABLET FT SCH ×2 (10:18→20:51)
[2021-10-04] MEDS: BENZONATATE 100 MG CAP PO SCH ×2 (10:18→20:51)
[2021-10-04] MEDS: GABAPENTIN 300 MG CAP FT SCH ×2 (10:18→20:51)
--- NOTE | 2021-10-04 20:18 | P.PN ---
Date of Service: 10/04/21 Vital Signs Temp Pulse Resp BP Pulse Ox 98.5 F 67 14 140/62 96 10/04/21 16:00 10/04/21 16:00 10/04/21 16:00 10/04/21 16:00 10/04/21 16:00 Medications Amlodipine Besylate (Amlodipine 5 Mg Tab) 10 mg FT DAILY [facility] Last Admin: 10/04/21 10:16 Dose: 10 mg Documented by: Ascorbic Acid (Ascorbic Acid 500 Mg Tablet) 1,000 mg FT BID [facility] Last Admin: 10/04/21 10:18 Dose: 1,000 mg Documented by: Atorvastatin Calcium (Atorvastatin 80 Mg Tab) 80 mg FT BEDTIME [facility] Last Admin: 10/03/21 20:11 Dose: 80 mg Documented by: Benzonatate (Benzonatate 100 Mg Cap) 100 mg PO BID [facility] Last Admin: 10/04/21 10:18 Dose: 100 mg Documented by: Calcitriol (Calcitrol 0.25 Mcg Cap) 0.5 mcg PO DAILY [facility] Last Admin: 10/04/21 10:17 Dose: 0.5 mcg Documented by: Doxazosin Mesylate (Doxazosin 2 Mg Tab) 2 mg FT BEDTIME [facility] Last Admin: 10/03/21 20:34 Dose: Not Given Documented by: Enteral Nutritional Formula (Nepro Shake 237 Ml Can) 1 ml PO QID [facility] Last Admin: 10/04/21 17:00 Dose: 1 ml Documented by: Escitalopram Oxalate (Escitalopram 20 Mg Tab) 40 mg FT DAILY [facility] Last Admin: 10/04/21 10:17 Dose: 40 mg Documented by: Furosemide (Furosemide 20 Mg Tablet) 20 mg PO DAILY [facility] Gabapentin (Gabapentin 300 Mg Cap) 300 mg FT BID [facility] Last Admin: 10/04/21 10:18 Dose: 300 mg Documented by: Hydralazine HCl (Hydralazine Hcl 10 Mg Tablet) 10 mg PO BID [facility] Last Admin: 10/04/21 10:16 Dose: 10 mg Documented by: Meropenem 1,000 mg/ Sodium (Chloride) 100 mls @ 200 mls/hr IV Q12HR [facility] Last Admin: 10/04/21 10:16 Dose: 100 mls Documented by: Sodium Chloride (Ns 1000 Ml Ivbag) 1,000 mls @ 75 mls/hr IV .[id number] [facility] Last Admin: 10/04/21 06:40 Dose: 1,000 mls Documented by: Insulin Human Regular (Insulin -Regular Human 50 Unit/0.5 Ml Ml) 0 unit SQ ACHS [facility]; Protocol Last Admin: 10/04/21 20:04 Dose: Not Given Documented by: L-Arginine/L-Glutamine/HMB (Bryan Packet) 1 pkt PO BID [facility] Last Admin: 10/04/21 09:00 Dose: 1 pkt Documented by: Ondansetron HCl (Ondansetron 4 Mg/2 Ml Vial) 4 mg IV Q6HP PRN PRN Reason: NAUSEA / VOMITING Last Admin: 10/01/21 18:24 Dose: 4 mg Documented by: Ondansetron HCl (Ondansetron 4 Mg (Odt) Tab) 4 mg PO Q8H PRN PRN Reason: NAUSEA / VOMITING Sodium Chloride (Flush Normal Saline 10 Ml) 10 ml IV BID [facility] Last Admin: 10/04/21 09:00 Dose: 10 ml Documented by: Sucralfate (Sucralfate 1gm/10ml Ucup) 1 gm FT 0800,1200,1700,2000 [facility] Last Admin: 10/04/21 17:35 Dose: 1 gm Documented by: Tamsulosin HCl (Tamsulosin 0.4 Mg Sr Cap) 0.4 mg PO DAILY [facility] Last Admin: 10/04/21 10:17 Dose: 0.4 mg Documented by: Tramadol HCl (Tramadol Hcl 50 Mg Tab) 50 mg PO Q4H PRN PRN Reason: Pain scale 5-7 (Moderate) Trazodone HCl (Trazodone 150 Mg Tab) 150 mg FT BEDTIME [facility] Last Admin: 10/03/21 20:25 Dose: 150 mg Documented by: Microbiology Results 09/29/21 12:10 Clean Catch Urine [place] Count - Final >100,000 CFU/ML. 09/29/21 12:10 Clean Catch Urine - Final Pseudomonas Aeruginosa Enterococcus Faecalis Assessment/ Plan: Nephrology No dyspnea No chest pain Fatigue No acute events overnight Vitals, medications, blood work and imaging reviewed in the chart. NAD. NCAT. MMM. Neck supple. Normal respiratory effort. RRR. Abd ND, PEG. No C/C. Hip Edema 1+. No rash. AAO. Normal speech. OSCAR may be due to diuresis CKD III with proteinuria -No NSAIDs -Furosemide daily HTN with CKD/ CHF -Continue Amlodipine Diastolic CHF, chronic -Low sodium diet -Furosemide daily DM II with CKD -RISS Moderate malnutrition -Continue tube feeds Anemia in chronic illness -Monitor H&H -Retacrit prn BPH with LUTS Urinary Retention -Continue hernandez CKD MBD -Continue Calcitriol Case reviewed with Dr. Seth
[2021-10-04] MEDS: TRAZODONE 150 MG TAB FT SCH (20:50)
[2021-10-04] MEDS: ATORVASTATIN 80 MG TAB FT SCH (20:51)
[2021-10-04] MEDS: DOXAZOSIN 2 MG TAB FT SCH (20:51)
[2021-10-05] MEDS: INSULIN -REGULAR HUMAN 50 UNIT/0.5 ML ML SQ SCH ×4 (07:30→19:55)
[2021-10-05] MEDS: SUCRALFATE 1GM/10ML UCUP FT SCH ×4 (08:00→21:46)
[2021-10-05] MEDS: JUVEN PACKET PO SCH ×2 (08:18→21:00)
[2021-10-05] MEDS: NEPRO SHAKE 237 ML CAN PO SCH ×4 (08:18→21:00)
[2021-10-05] MEDS: Meropenem 1,000 MG in NA CHLORIDE 0.9% 100 ML IV SCH ×2 (08:20→21:48)
[2021-10-05] MEDS: NA CHLORIDE 0.9% 1,000 ML IV SCH ×2 (08:21→21:49)
[2021-10-05] MEDS: ASCORBIC ACID 500 MG TABLET FT SCH ×2 (08:24→21:47)
[2021-10-05] MEDS: BENZONATATE 100 MG CAP PO SCH ×2 (08:24→21:47)
[2021-10-05] MEDS: TAMSULOSIN 0.4 MG SR CAP PO SCH (08:24)
[2021-10-05] MEDS: GABAPENTIN 300 MG CAP FT SCH ×2 (08:24→21:47)
[2021-10-05] MEDS: ESCITALOPRAM 20 MG TAB FT SCH (08:25)
[2021-10-05] MEDS: CALCITROL 0.25 MCG CAP PO SCH (08:25)
[2021-10-05] MEDS ORDERED: FUROSEMIDE 20 MG TABLET PO SCH (09:00)
[2021-10-05] MEDS: AMLODIPINE 5 MG TAB FT SCH (09:01)
[2021-10-05] MEDS: HYDRALAZINE HCL 10 MG TABLET PO SCH ×2 (09:01→21:48)
--- NOTE | 2021-10-05 10:41 | P.PN ---
Date of Service: 10/04/21 Subjective Waiting for swing bed placement MDR with Pseudomonas aeruginosa; PICC line placed and waiting for DC home; possibly [facility] trasnfer; if not then DC home with IV antibiotics x 10 days Physical Examination - Vital Signs reviewed - Physical Exam General: Cooperative, Other (physically deconditioned, extremily dry skin) Respiratory: Clear to auscultation bilaterally, Normal air movement Cardiovascular: Regular rate/rhythm, Normal S1 S2 Gastrointestinal: Soft and benign, Non-distended Musculoskeletal: No clubbing, No swelling, No contractures, No erythema Neurological: Normal speech, Normal affect Assessment And Plan - Current Problems (Diagnosis) (1) Generalized weakness Current Visit: Yes Status: Acute (2) BPH (benign prostatic hyperplasia) Current Visit: No Status: Acute (3) Bradycardia Current Visit: No Status: Acute (4) Cachexia Current Visit: No Status: Acute (5) Cardiomyopathy Current Visit: No Status: Acute Physician Review Additional Text: Assessment: 1. UTI 2. Generalized weakness 3. Anemia of chronic disease 4. CKD stage IV PLAN: -Monitor H&H -Continue antibiotic therapy -Monitor renal function per nephrology -Physical therapy -SCD for DVT ppx -Avoid nephrotoxins -Change status to inpatient
--- NOTE | 2021-10-05 20:56 | P.PN ---
Date of Service: 10/05/21 Vital Signs Temp Pulse Resp BP Pulse Ox 98.4 F 78 18 156/75 H 96 10/05/21 16:00 10/05/21 16:00 10/05/21 16:00 10/05/21 16:00 10/05/21 16:00 Medications Amlodipine Besylate (Amlodipine 5 Mg Tab) 10 mg FT DAILY [facility] Last Admin: 10/05/21 09:01 Dose: 10 mg Documented by: Ascorbic Acid (Ascorbic Acid 500 Mg Tablet) 1,000 mg FT BID [facility] Last Admin: 10/05/21 08:24 Dose: 1,000 mg Documented by: Atorvastatin Calcium (Atorvastatin 80 Mg Tab) 80 mg FT BEDTIME [facility] Last Admin: 10/04/21 20:51 Dose: 80 mg Documented by: Benzonatate (Benzonatate 100 Mg Cap) 100 mg PO BID [facility] Last Admin: 10/05/21 08:24 Dose: 100 mg Documented by: Calcitriol (Calcitrol 0.25 Mcg Cap) 0.5 mcg PO DAILY [facility] Last Admin: 10/05/21 08:25 Dose: 0.5 mcg Documented by: Doxazosin Mesylate (Doxazosin 2 Mg Tab) 2 mg FT BEDTIME [facility] Last Admin: 10/04/21 20:51 Dose: 2 mg Documented by: Enteral Nutritional Formula (Nepro Shake 237 Ml Can) 1 ml PO QID [facility] Last Admin: 10/05/21 15:52 Dose: 1 ml Documented by: Escitalopram Oxalate (Escitalopram 20 Mg Tab) 40 mg FT DAILY [facility] Last Admin: 10/05/21 08:25 Dose: 40 mg Documented by: Furosemide (Furosemide 20 Mg Tablet) 20 mg PO DAILY [facility] Last Admin: 10/05/21 09:01 Dose: 20 mg Documented by: Gabapentin (Gabapentin 300 Mg Cap) 300 mg FT BID [facility] Last Admin: 10/05/21 08:24 Dose: 300 mg Documented by: Hydralazine HCl (Hydralazine Hcl 10 Mg Tablet) 10 mg PO BID [facility] Last Admin: 10/05/21 09:01 Dose: 10 mg Documented by: Meropenem 1,000 mg/ Sodium (Chloride) 100 mls @ 200 mls/hr IV Q12HR [facility] Last Admin: 10/05/21 08:20 Dose: 100 mls Documented by: Sodium Chloride (Ns 1000 Ml Ivbag) 1,000 mls @ 75 mls/hr IV .[id number] [facility] Last Admin: 10/05/21 08:21 Dose: 1,000 mls Documented by: Insulin Human Regular (Insulin -Regular Human 50 Unit/0.5 Ml Ml) 0 unit SQ ACHS [facility]; Protocol Last Admin: 10/05/21 19:55 Dose: Not Given Documented by: L-Arginine/L-Glutamine/HMB (Bryan Packet) 1 pkt PO BID [facility] Last Admin: 10/05/21 08:18 Dose: 1 pkt Documented by: Ondansetron HCl (Ondansetron 4 Mg/2 Ml Vial) 4 mg IV Q6HP PRN PRN Reason: NAUSEA / VOMITING Last Admin: 10/01/21 18:24 Dose: 4 mg Documented by: Ondansetron HCl (Ondansetron 4 Mg (Odt) Tab) 4 mg PO Q8H PRN PRN Reason: NAUSEA / VOMITING Sodium Chloride (Flush Normal Saline 10 Ml) 10 ml IV BID [facility] Last Admin: 10/05/21 09:00 Dose: Not Given Documented by: Sucralfate (Sucralfate 1gm/10ml Ucup) 1 gm FT 0800,1200,1700,2000 [facility] Last Admin: 10/05/21 15:53 Dose: 1 gm Documented by: Tamsulosin HCl (Tamsulosin 0.4 Mg Sr Cap) 0.4 mg PO DAILY [facility] Last Admin: 10/05/21 08:24 Dose: 0.4 mg Documented by: Tramadol HCl (Tramadol Hcl 50 Mg Tab) 50 mg PO Q4H PRN PRN Reason: Pain scale 5-7 (Moderate) Trazodone HCl (Trazodone 150 Mg Tab) 150 mg FT BEDTIME [facility] Last Admin: 10/04/21 20:50 Dose: 150 mg Documented by: Microbiology Results 09/29/21 12:10 Clean Catch Urine [place] Count - Final >100,000 CFU/ML. 09/29/21 12:10 Clean Catch Urine - Final Pseudomonas Aeruginosa Enterococcus Faecalis Assessment/ Plan: Nephrology No dyspnea No chest pain Fatigue No acute events overnight Vitals, medications, blood work and imaging reviewed in the chart. NAD. NCAT. MMM. Neck supple. Normal respiratory effort. RRR. Abd ND, PEG. No C/C. Hip Edema 1+. No rash. AAO. Normal speech. OSCAR may be due to diuresis CKD III with proteinuria -No NSAIDs -Furosemide daily HTN with CKD/ CHF -Continue Amlodipine Diastolic CHF, chronic -Low sodium diet -Furosemide daily DM II with CKD -RISS Moderate malnutrition -Continue tube feeds Anemia in chronic illness -Monitor H&H -Retacrit in the AM BPH with LUTS Urinary Retention -Continue hernandez CKD MBD -Continue Calcitriol
[2021-10-05] MEDS: TRAZODONE 150 MG TAB FT SCH (21:00)
[2021-10-05] MEDS: ATORVASTATIN 80 MG TAB FT SCH (21:47)
[2021-10-05] MEDS: DOXAZOSIN 2 MG TAB FT SCH ×2 (21:47→21:48)
[2021-10-06 04:49] LABS: Absolute Lymphocytes (CBC) 0.8 K/uL (0.7-4.9); Hematocrit 24.1 % (39.6-49.0); Lymphocytes % 9.3 % (15.3-44.8); MPV 10.3 fL (7.6-11.3); RBC Red Blood Cell Count 3.28 M/uL (4.33-5.43)
[2021-10-06 05:04] LABS: Albumin 2.3 g/dL (3.4-5.0); Bilirubin Total 0.3 mg/dL (0.2-1.0); Potassium 4.7 mmol/L (3.5-5.1); Protein, Total 5.9 g/dL (6.4-8.2); Uric Acid 6.7 mg/dL (3.5-7.2)
[2021-10-06] MEDS: INSULIN -REGULAR HUMAN 50 UNIT/0.5 ML ML SQ SCH ×2 (07:30→11:30)
[2021-10-06] MEDS ORDERED: NACHLORIDE 0.45% 1,000 ML IV SCH (08:00)
[2021-10-06] MEDS: SUCRALFATE 1GM/10ML UCUP FT SCH ×2 (08:27→12:08)
[2021-10-06] MEDS: BENZONATATE 100 MG CAP PO SCH (08:27)
[2021-10-06] MEDS: ASCORBIC ACID 500 MG TABLET FT SCH (08:28)
[2021-10-06] MEDS: CALCITROL 0.25 MCG CAP PO SCH (08:28)
[2021-10-06] MEDS: AMLODIPINE 5 MG TAB FT SCH (08:29)
[2021-10-06] MEDS: ESCITALOPRAM 20 MG TAB FT SCH (08:29)
[2021-10-06] MEDS: HYDRALAZINE HCL 10 MG TABLET PO SCH (08:30)
[2021-10-06] MEDS: Meropenem 1,000 MG in NA CHLORIDE 0.9% 100 ML IV SCH (08:30)
[2021-10-06] MEDS: GABAPENTIN 300 MG CAP FT SCH (08:30)
[2021-10-06] MEDS: TAMSULOSIN 0.4 MG SR CAP PO SCH (08:30)
[2021-10-06] MEDS: NEPRO SHAKE 237 ML CAN PO SCH ×2 (08:32→12:08)
[2021-10-06] MEDS: JUVEN PACKET PO SCH (08:32)
[2021-10-06] MEDS ORDERED: EPOETIN ALFA-EPBX 10,000 UNIT/ML VIAL SQ SCH (09:00)
[2021-10-06] MEDS: ONDANSETRON 4 MG/2 ML VIAL IV PRN (09:24)
[2021-10-06] MEDS ORDERED: TOLTERODINE LA 4 MG CAP PO ONE (10:27)
[2021-10-06 11:10] VITALS: BP 131/65; TEMP 98.6
--- NOTE | 2021-10-06 13:44 | RAD REPORT ---
EXAM DESCRIPTION: US - Urinary Bladder - 10/06/2021 1:35 pm CLINICAL HISTORY: Pelvic pain. Check Holcomb catheter placement FINDINGS: A Holcomb catheter has the balloon within the lumen of the bladder. IMPRESSION: A Holcomb catheter in good position
[2021-10-06] MEDS ORDERED: TOLTERODINE LA 4 MG CAP PO SCH (21:00)
--- NOTE | 2021-10-06 22:31 | P.PN ---
Date of Service: 10/06/21 Vital Signs Temp Pulse Resp BP Pulse Ox 98.6 F 68 18 131/65 96 10/06/21 08:00 10/06/21 08:00 10/06/21 08:00 10/06/21 08:00 10/06/21 08:00 Microbiology Results 09/29/21 12:10 Clean Catch Urine [place] Count - Final >100,000 CFU/ML. 09/29/21 12:10 Clean Catch Urine - Final Pseudomonas Aeruginosa Enterococcus Faecalis Assessment/ Plan: Nephrology No dyspnea No chest pain Fatigue reports leaking urine around the hernandez catheter. She also reports a worsening right buttock stage II ulcer. Vitals, medications, blood work and imaging reviewed in the chart. NAD. NCAT. MMM. Neck supple. Normal respiratory effort. RRR. Abd ND, PEG. No C/C. Hip Edema 1+. No rash. AAO. Normal speech. Multiple pressure ulcers. OSCAR may be due to diuresis CKD III with proteinuria -No NSAIDs -Furosemide daily HTN with CKD/ CHF -Continue Amlodipine Diastolic CHF, chronic -Low sodium diet -Furosemide daily DM II with CKD -RISS Moderate malnutrition -Continue tube feeds Anemia in chronic illness -Monitor H&H -Retacrit as ordered BPH with LUTS Urinary Retention -Continue hernandez CKD MBD -Continue Calcitriol Case reviewed with the and nursing staff.
[2021-10-08 18:48] LABS: HBsAG Nonreactive (Nonreactive)
== END 2021-10-06 15:00 | DRG 699 ==
LOC: ER 10:56 → ERHOLD 19:18 → 2ND 22:35
PROVIDERS: ADMIT Internal Medicine; ATTEND Internal Medicine
PROC: 02H633Z Insertion of Infusion Device into Right Atrium, Percutaneous Approach (ICD-10-PCS; 2021-09-29)
PROC: 30233N1 Transfusion of Nonautologous Red Blood Cells into Peripheral Vein, Percutaneous Approach (ICD-10-PCS; principal; 2021-10-01)
DX: T83.511A Infection and inflammatory reaction due to indwelling urethral catheter, initial encounter (principal); Z16.24 Resistance to multiple antibiotics; I13.0 Hypertensive heart and chronic kidney disease with heart failure and stage 1 through stage 4 chronic kidney disease, or unspecified chronic kidney disease; N18.4 Chronic kidney disease, stage 4 (severe); I50.32 Chronic diastolic (congestive) heart failure; R64 Cachexia; Z68.1 Body mass index [BMI] 19.9 or less, adult; N17.9 Acute kidney failure, unspecified; E44.0 Moderate protein-calorie malnutrition; N30.90 Cystitis, unspecified without hematuria; B96.5 Pseudomonas (aeruginosa) (mallei) (pseudomallei) as the cause of diseases classified elsewhere; B95.2 Enterococcus as the cause of diseases classified elsewhere; I25.10 Atherosclerotic heart disease of native coronary artery without angina pectoris; E11.22 Type 2 diabetes mellitus with diabetic chronic kidney disease; D63.8 Anemia in other chronic diseases classified elsewhere; J44.9 Chronic obstructive pulmonary disease, unspecified; E78.5 Hyperlipidemia, unspecified; N26.9 Renal sclerosis, unspecified; N40.1 Benign prostatic hyperplasia with lower urinary tract symptoms; L89.211 Pressure ulcer of right hip, stage 1; L89.152 Pressure ulcer of sacral region, stage 2; I25.2 Old myocardial infarction; Z86.73 Personal history of transient ischemic attack (TIA), and cerebral infarction without residual deficits; Z95.1 Presence of aortocoronary bypass graft; Z91.040 Latex allergy status; Z20.822 Contact with and (suspected) exposure to COVID-19
CPT/HCPCS: 36415; 36430; 71045; 76857; 80048; 80053; 80202; 81001; 81003; 81015; 82570; 82728; 82947; 83540; 83690; 83735; 83880; 84100; 84156; 84466; 84550; 85025; 86317; 86704; 86850; 86900; 86901; 87077; 87086; 87088; 87186; 87340; 96361; 96365; 96375; 97110; 97161; 97530; 99285; J1644; J2185; J2405; J3370; J7030; J7050; P9016; Q5106; U0003

== ENCOUNTER 2021-10-22 07:52 | Inpatient (IN) | payer OTHER ==
--- OUTSIDE RECORDS SUMMARY | 2021-10-22 08:31 | XMS REPORT | Continuity of Care Document ---
:1955 Author Organization [facility] t Address [address] [place] [address] Care Team Providers Name Role Phone RADAMESRa Primary Care Physician Unavailable [id number] Attending Clinician Unavailable GALE Attending Clinician Unavailable [...] JONES Attending Clinician Tay JONES Attending Clinician Radames HISTOLOGIST, M Attending Clinician Pob, Lab Main Attending [...] Clinician Unavailable DOYLE, R Attending Clinician Unavailable oDyle MOP, R Attending Clinician RK TROTTER Attending Clinician Unavailable Singer LARSEN Attending Clinician GRIS Attending Clinician Unavailable Savita ROJAS R Attending Clinician Kayla JONES Attending Clinician Gris JONES Attending Clinician Joshua JONES Attending Clinician [id number] Admitting Clinician Unavailable TEREZA Admitting Clinician Unavailable Laurie JONES, Scott Admitting Clinician Marlon JONES Admitting Clinician Arash Sunshine MD Admitting Clinician Arash SUNSHINE Admitting Clinician Unavailable ELMO Admitting Clinician Unavailable Hailey KWON Admitting Clinician Unavailable RK TROTTER Admitting Clinician Unavailable GRIS Admitting Clinician Unavailable Gris JONES Admitting Clinician Payers Payer Name Policy Type Policy Number Effective Date Expiration Date Mary Ellen BOYCE AE [id number] MEDICARE PART A [id number] 2020 \\T\\ B 00:00:00 MEDICAID SSI PENDING 2019 PENDING 00:00:00 Problems Condition Condition Condition Status Onset Resolution Last Treating Co mments Source Name Details Category Date Date Treatment Clinician Date E46 E46 Disease Active Univers Unspecifie Unspecifie 4-11 it y of d severe d severe 00:00: [place] protein-ca protein-ca 00 Me kevin maya [place] malnutriti malnutriti on on Upper GI Upper GI Disease Active Unive rs bleed bleed 4-10 ity of 00:00: [place] [facility] Hypoglycem Hypoglycem Disease Active 2020-0 U nivers ia ia 4-14 ity of 00:00: [place] [facility] CAD CAD Disease Active 2019- Univers (coronary (coronary 3-17 ity of artery artery 00:00: [place] disease) disease) 00 [facility] Ann[facility] l [place] CKD stage CKD stage Disease Active 2019- Uni vers 2 due to 2 due to 3-17 ity of type 2 type 2 00:00: [place] diabetes diabetes 00 [facility] mellitus mellitus Branch OSCAR (acute OSCAR (acute Disease Active 2019- U nivers kidney kidney 3-17 ity of injury) injury) 00:00: [place] [facility] Fe Fe Disease Active 2020-0 Univers deficiency deficiency 3-17 it y of anemia anemia 00:00: [place] [facility] Hyperkalem Hyperkalem Disease Active 2020-0 U nivers ia ia 3-17 ity of 00:00: [place] [facility] SOB SOB Disease Active 2020-0 [...] ve urgency 2-05 it y of 00:00: [place] 00 Medical Branch CHF CHF Disease Active 2020-0 Univers (congestiv (congestiv 2-04 it y of e heart e heart 00:00: [place] failure) failure) 00 [facility] CHF CHF Disease Active 2020-0 Univers exacerbati exacerbati 2-04 it y of on on 00:00: [place] [facility] Anemia, Anemia, Disease Active Overview: Univ ers unspecifie unspecifie 9-11 Formattin ity of d type d type 00:00: g of this 00 note Medical might be Branch different from the original. Added automatic ally from request for surgery [id number] Dysphagia, Dysphagia, Disease Active Overview : Univers unspecifie unspecifie 9-11 Formattin ity of d type d type 00:00: g of this 00 note Medical might be Branch different from the original. Added automatic ally from request for surgery [id number] Atrial Atrial Disease Active Univers flutter flutter [...] Coronary Disease Active Unive rs artery artery 402 ity of disease disease 00:00: [place] involving involving 00 Medi lizzy [place] coronary coronary artery of artery of [place] heart with heart with angina angina pectoris pectoris HTN HTN Disease Active Univers (hypertens (hypertens 02 it y of ion) ion) 00:00: 00 Medical Branch HLD HLD Disease Active Univers (hyperlipi (hyperlipi 10-14 it y of demia) demia) 00:00: [place] 00 Medical Branch Type 2 Type 2 [...] of History of Disease Active U nivers NE NE 3-01 ity of (myocardia (myocardia 00:00: [place] [...] Active Uni vers 2-16 ity of 00:00: 00 Medical Branch History of History of [...] Family history of Univers ity of [place]'s disease Physici ans Father Family history of [...] [place] pancreatic cancer Physici ans Brother Cancer [facility] Father Coronary Heart Disease Un iversity of [facility] Father Diabetes [facility] Father Hypertension University o f [facility] Mother Jose [facility] s disease [facility] Branch Mother Cancer [facility] Mother Coronary Heart Disease Un iversity of [facility] Mother Diabetes [facility] Mother Heart [facility] Mother Hypertension University o f [facility] Sister Cancer [facility] Social History Social Habit Start Date Stop Date Quantity Comments Source Exposure to Not sure University of SARS-CoV-2 (event) [place] [facility] History SDOH University o f Alcohol Frequency [facility] edical Branch History SDOH University o f Alcohol Std Drinks [place] [facility] History SDNJ University o f Alcohol Binge [place] [facility] al Branch History of tobacco Cigarette Smoker University of use [facility] Alcohol intake 2020-05-03 2020-05-03 Current drinker Unive rsity of 00:00:00 00:00:00 of alcohol [place] Medical (finding) Branch History SDOH 2019-09-30 2019-09-30 3 University o f Financial 00:00:00 00:00:00 [place] [facility] History SDOH Food 2019-09-30 2019-09-30 1 Univers ity of Worry 00:00:00 00:00:00 [place] [facility] History SDOH Food 2019-09-30 2019-09-30 1 Univers ity of Scarcity 00:00:00 00:00:00 [place] [facility] History SDOH 2019-09-30 2019-09-30 2 University o f Transport Med 00:00:00 00:00:00 [facility] al Branch History SDOH 2019-09-30 2019-09-30 2 University o f Transport Non-Med 00:00:00 00:00:00 [facility] Branch Education 2019-09-29 2019-09-29 13 University of 00:00:00 00:00:00 [facility] Tobacco use and 2019-09-29 2019-09-29 Never used Universit y of exposure 00:00:00 00:00:00 [facility] Cigarettes smoked 2019-09-29 2019-09-29 Univers ity of current (pack per 00:00:00 00:00:00 [facility]) - Reported Branch Cigarette 2019-09-29 2019-09-29 University of pack-years 00:00:00 00:00:00 [facility] Tobacco Comment 2018-04-03 2018-04-03 2-2.5 PPD X 40 Unive rsity of 00:00:00 00:00:00 years, down to [facility] [place] [facility] lizzy 1PPD since Branch 02/2018 Alcohol Comment 2018-04-03 2018-04-03 quit5 years ago Univ ersity of 00:00:00 00:00:00 [facility] Sex [birth year] Universit y of 00:00:00 00:00:00 [facility] Smoking Status Start Date Stop Date Source Ex-smoker (finding) University o f [place] [facility] Current every day smoker 2019-09-28 00:00:00 Uni versity of [facility] Medications Ordered Filled Start Stop Current Ordering Indication Dosage Frequency Signature Comments Components Source Medication Medication Date Date Medication? Clinician (SIG) Name Name metoprolol Yes [id number] 25mg Take 25 mg Univers tartrate 75 4-29 through ity o f mg Tab 00:00: enteral [place] 00 tube 2 Medical (two) Branch times daily. metoprolol Yes [id number] 25mg Take 25 mg Univers tartrate 75 4-29 through ity o f mg Tab 00:00: enteral [place] 00 tube 2 Medical (two) Branch times daily. metoprolol Yes [id number] 100mg Take 1 Univers tartrate 4-29 tablet ity of 100 mg 00:00: through [place] tablet 00 enteral Medical tube 2 Branch (two) times daily. metoprolol Yes [id number] 25mg Take 25 mg Univers tartrate 75 4-29 through ity o f mg Tab 00:00: enteral [place] 00 tube 2 Medical (two) Branch times daily. metoprolol 2020-0 Yes [id number] 100mg Take 1 Univers tartrate 4-29 tablet ity of 100 mg 00:00: through [place] tablet 00 enteral Medical tube 2 Branch (two) times daily. metoprolol 2020-0 Yes [id number] 25mg Take 25 mg Univers tartrate 75 4-29 through ity o f mg Tab 00:00: enteral [place] 00 tube 2 Medical (two) Branch times daily. metoprolol 2020-0 Yes [id number] 100mg Take 1 Univers tartrate 4-29 tablet ity of 100 mg 00:00: through [place] tablet 00 enteral Medical tube 2 Branch (two) times daily. metoprolol 2020-0 Yes [id number] 25mg Take 25 mg Univers tartrate 75 4-29 through ity o f mg Tab 00:00: enteral [place] 00 tube 2 Medical (two) Branch times daily. metoprolol 2020-0 Yes [id number] 100mg Take 1 Univers tartrate 4-29 tablet ity of 100 mg 00:00: through [place] tablet 00 enteral Medical tube 2 Branch (two) times daily. metoprolol 2020-0 Yes [id number] 25mg Take 25 mg Univers tartrate 75 4-29 through ity o f mg Tab 00:00: enteral [place] 00 tube 2 Medical (two) Branch times daily. metoprolol 2020-0 Yes [id number] 100mg Take 1 Univers tartrate 4-29 tablet ity of 100 mg 00:00: through [place] tablet 00 enteral Medical tube 2 Branch (two) times daily. metoprolol 2020-0 Yes [id number] 25mg Take 25 mg Univers tartrate 75 4-29 through ity o f mg Tab 00:00: enteral [place] 00 tube 2 Medical (two) Branch times daily. metoprolol 2020-0 Yes [id number] 100mg Take 1 Univers tartrate 4-29 tablet ity of 100 mg 00:00: through [place] tablet 00 enteral Medical tube 2 Branch (two) times daily. metoprolol 2020-0 Yes [id number] 25mg Take 25 mg Univers tartrate 75 4-29 through ity o f mg Tab 00:00: enteral [place] 00 tube 2 Medical (two) Branch times daily. metoprolol 2020-0 Yes [id number] 100mg Take 1 Univers tartrate 4-29 tablet ity of 100 mg 00:00: through [place] tablet 00 enteral Medical tube 2 Branch (two) times daily. sennosides- Yes [id number] 1{tbl} Take 1 Univers docusate 4-28 tablet ity of sodium 00:00: through [place] 8.6-50 mg 00 enteral Medical per tablet tube Branch daily. lidocaine 5 Yes [id number] 1{patch Apply 1 Univers % (700 4-28 } Patch to ity of mg/patch) 00:00: area(s) [place] patch 00 daily. Medical Branch ferrous Yes [id number] 300mg Take 5 mL Univers sulfate 300 4-28 through ity o f mg (60 mg 00:00: enteral [place] iron)/5 mL 00 tube every Med ical solution other day. Bran h sennosides- Yes [id number] 1{tbl} Take 1 Univers docusate 4-28 tablet ity of sodium 00:00: through [place] 8.6-50 mg 00 enteral Medical per tablet tube Branch daily. lidocaine 5 Yes [id number] 1{patch Apply 1 Univers % (700 4-28 } Patch to ity of mg/patch) 00:00: area(s) [place] patch 00 daily. Medical Branch esomeprazol Yes [id number] 40mg Take 40 mg Univers e (NEXIUM 4-28 1 by mouth ity of PACKET) 40 00:00: daily with [place] mg packet 00 breakfast. [facility] sennosides- Yes [id number] 1{tbl} Take 1 Univers docusate 4-28 tablet ity of sodium 00:00: through [place] 8.6-50 mg 00 enteral Medical per tablet tube Branch daily. lidocaine 5 Yes [id number] 1{patch Apply 1 Univers % (700 4-28 } Patch to ity of mg/patch) 00:00: area(s) [place] patch 00 daily. Medical Branch esomeprazol Yes [id number] 40mg Take 40 mg Univers e (NEXIUM 4-28 1 by mouth ity of PACKET) 40 00:00: daily with [place] mg packet 00 breakfast. [facility] sennosides- Yes [id number] 1{tbl} Take 1 Univers docusate 4-28 tablet ity of sodium 00:00: through [place] 8.6-50 mg 00 enteral Medical per tablet tube Branch daily. lidocaine 5 2020- Yes [id number] 1{patch Apply 1 Univers % (700 4-28 } Patch to ity of mg/patch) 00:00: area(s) [place] patch 00 daily. Medical Branch esomeprazol Yes [id number] 40mg Take 40 mg Univers e (NEXIUM 4-28 1 by mouth ity of PACKET) 40 00:00: daily with [place] mg packet 00 breakfast. [facility]- Yes [id number] 1{tbl} Take 1 Univers docusate 4-28 tablet ity of sodium 00:00: through [place] 8.6-50 mg 00 enteral Medical per tablet tube Branch daily. lidocaine 5 2020- Yes [id number] 1{patch Apply 1 Univers % (700 4-28 } Patch to ity of mg/patch) 00:00: area(s) [place] patch 00 daily. Medical Branch esomeprazol Yes [id number] 40mg Take 40 mg Univers e (NEXIUM 4-28 1 by mouth ity of PACKET) 40 00:00: daily with [place] mg packet 00 breakfast. [facility]- Yes [id number] 1{tbl} Take 1 Univers docusate 4-28 tablet ity of sodium 00:00: through [place] 8.6-50 mg 00 enteral Medical per tablet tube Branch daily. lidocaine 5 Yes [id number] 1{patch Apply 1 Univers % (700 4-28 } Patch to ity of mg/patch) 00:00: area(s) [place] patch 00 daily. Medical Branch esomeprazol Yes [id number] 40mg Take 40 mg Univers e (NEXIUM 4-28 1 by mouth ity of PACKET) 40 00:00: daily with [place] mg packet 00 breakfast. [facility]- Yes [id number] 1{tbl} Take 1 Univers docusate 4-28 tablet ity of sodium 00:00: through [place] 8.6-50 mg 00 enteral Medical per tablet tube Branch daily. lidocaine 5 Yes [id number] 1{patch Apply 1 Univers % (700 4-28 } Patch to ity of mg/patch) 00:00: area(s) [place] patch 00 daily. Medical Branch esomeprazol Yes [id number] 40mg Take 40 mg Univers e (NEXIUM 4-28 1 by mouth ity of PACKET) 40 00:00: daily with [place] mg packet 00 breakfast. [facility]- Yes [id number] 1{tbl} Take 1 Univers docusate 4-28 tablet ity of sodium 00:00: through [place] 8.6-50 mg 00 enteral Medical per tablet tube Branch daily. lidocaine 5 2020- Yes [id number] 1{patch Apply 1 Univers % (700 4-28 } Patch to ity of mg/patch) 00:00: area(s) [place] patch 00 daily. Medical Branch esomeprazol Yes [id number] 40mg Take 40 mg Univers e (NEXIUM 4-28 1 by mouth ity of PACKET) 40 00:00: daily with [place] mg packet 00 breakfast. [facility]- Yes [id number] 1{tbl} Take 1 Univers docusate 4-28 tablet ity of sodium 00:00: through [place] 8.6-50 mg 00 enteral Medical per tablet tube Branch daily. lidocaine 5 Yes [id number] 1{patch Apply 1 Univers % (700 4-28 } Patch to ity of mg/patch) 00:00: area(s) [place] patch 00 daily. Medical Branch esomeprazol Yes [id number] 40mg Take 40 mg Univers e (NEXIUM 4-28 1 by mouth ity of PACKET) 40 00:00: daily with [place] mg packet 00 breakfast. [facility]- Yes [id number] 1{tbl} Take 1 Univers docusate 4-28 tablet ity of sodium 00:00: through [place] 8.6-50 mg 00 enteral Medical per tablet tube Branch daily. lidocaine 5 2020- Yes [id number] 1{patch Apply 1 Univers % (700 4-28 } Patch to ity of mg/patch) 00:00: area(s) [place] patch 00 daily. Medical Branch esomeprazol Yes [id number] 40mg Take 40 mg Univers e (NEXIUM 4-28 1 by mouth ity of PACKET) 40 00:00: daily with [place] mg packet 00 breakfast. [facility]- Yes [id number] 1{tbl} Take 1 Univers docusate 4-28 tablet ity of sodium 00:00: through [place] 8.6-50 mg 00 enteral Medical per tablet tube Branch daily. lidocaine 5 Yes [id number] 1{patch Apply 1 Univers % (700 4-28 } Patch to ity of mg/patch) 00:00: area(s) [place] patch 00 daily. Medical Branch esomeprazol Yes [id number] 40mg Take 40 mg Univers e (NEXIUM 4-28 1 by mouth ity of PACKET) 40 00:00: daily with [place] mg packet 00 breakfast. [facility]- Yes [id number] 1{tbl} Take 1 Univers docusate 4-28 tablet ity of sodium 00:00: through [place] 8.6-50 mg 00 enteral Medical per tablet tube Branch daily. lidocaine 5 Yes [id number] 1{patch Apply 1 Univers % (700 4-28 } Patch to ity of mg/patch) 00:00: area(s) [place] patch 00 daily. Medical Branch esomeprazol Yes [id number] 40mg Take 40 mg Univers e (NEXIUM 4-28 1 by mouth ity of PACKET) 40 00:00: daily with [place] mg packet 00 breakfast. [facility] ferrous 2020- No [id number] 220mg Take 5 mL Univers sulfate 220 11-09- 1 by mouth 3 i ty of mg (44 mg 00:00: 04:59 (three) [place] iron)/5 mL 00 :00 times Medical solution daily with Branc h meals for 30 days. gabapentin 2020- No [id number] 300mg Take 6 mL Univers 250 mg/5 mL 11-09-29 through ity of solution 00:00: 04:59 enteral [place] 00 :00 tube 3 Medical (three) Branch times daily for 30 days. ferrous 2020- No [id number] 220mg Take 5 mL Univers sulfate 220 11-09- 1 by mouth 3 i ty of mg (44 mg 00:00: 04:59 (three) [place] iron)/5 mL 00 :00 times Medical solution daily with Branc h meals for 30 days. gabapentin 2020- No [id number] 300mg Take 6 mL Univers 250 mg/5 mL 11-09- through ity of solution 00:00: 04:59 enteral [place] 00 :00 tube 3 Medical (three) Branch times daily for 30 days. ferrous 2020- No [id number] 220mg Take 5 mL Univers sulfate 220 11-09- 1 by mouth 3 i ty of mg (44 mg 00:00: 04:59 (three) [place] iron)/5 mL 00 :00 times Medical solution daily with Branc h meals for 30 days. gabapentin 2020- No [id number] 300mg Take 6 mL Univers 250 mg/5 mL 11-09- through ity of solution 00:00: 04:59 enteral [place] 00 :00 tube 3 Medical (three) Branch times daily for 30 days. ferrous 2020- No [id number] 220mg Take 5 mL Univers sulfate 220 11-09- 1 by mouth 3 i ty of mg (44 mg 00:00: 04:59 (three) [place] iron)/5 mL 00 :00 times Medical solution daily with Branc h meals for 30 days. gabapentin 2020- No [id number] 300mg Take 6 mL Univers 250 mg/5 mL 11-09- through ity of solution 00:00: 04:59 enteral [place] 00 :00 tube 3 Medical (three) Branch times daily for 30 days. ferrous 2020- No [id number] 220mg Take 5 mL Univers sulfate 220 11-09- 1 by mouth 3 i ty of mg (44 mg 00:00: 04:59 (three) [place] iron)/5 mL 00 :00 times Medical solution daily with Branc h meals for 30 days. gabapentin 2020- No [id number] 300mg Take 6 mL Univers 250 mg/5 mL 11-09-29 through ity of solution 00:00: 04:59 enteral [place] 00 :00 tube 3 Medical (three) Branch times daily for 30 days. ferrous 2020- No [id number] 220mg Take 5 mL Univers sulfate 220 11-09- 1 by mouth 3 i ty of mg (44 mg 00:00: :59 (three) [place] iron)/5 mL 00 :00 times Medical solution daily with Branc h meals for 30 days. gabapentin 2020- No [id number] 300mg Take 6 mL Univers 250 mg/5 mL 11-09- through ity of solution 00:00: 04:59 enteral [place] 00 :00 tube 3 Medical (three) Branch times daily for 30 days. ferrous 2020- No [id number] 220mg Take 5 mL Univers sulfate 220 11-09- 1 by mouth 3 i ty of mg (44 mg 00:: :59 (three) [place] iron)/5 mL 00 :00 times Medical solution daily with Branc h meals for 30 days. gabapentin 2020- No [id number] 300mg Take 6 mL Univers 250 mg/5 mL 11-09- through ity of solution 00:00: 04:59 enteral [place] 00 :00 tube 3 Medical (three) Branch times daily for 30 days. ferrous 2020- No [id number] 220mg Take 5 mL Univers sulfate 220 11-09- 1 by mouth 3 i ty of mg (44 mg 00:: :59 (three) [place] iron)/5 mL 00 :00 times Medical solution daily with Branc h meals for 30 days. gabapentin 2020- No [id number] 300mg Take 6 mL Univers 250 mg/5 mL 11-09- through ity of solution 00:00: 04:59 enteral [place] 00 :00 tube 3 Medical (three) Branch times daily for 30 days. ferrous 2020- No [id number] 300mg Take 5 mL Univers sulfate 300 11-09- through ity of mg (60 mg 00:00: 00:00 [place] iron)/5 mL 00 :00 tube every Med ical solution other day. Branc h escitalopra 2020- No 20mg Take 20 mg Univers m oxalate 11-08 by mouth ity o f 20 mg 19:31: 00:00 daily. [place] tablet 00 :00 [facility] traZODone 2020- No 100mg Take 100 Un michael 100 mg 11-08- mg by ity of tablet 19:31: 00:00 mouth at [place] 00 :00 bedtime. [facility] escitalopra 2020- No 20mg Take 20 mg Univers m oxalate 11-08 by mouth ity o f 20 mg 19:31: 00:00 daily. [place] tablet 00 :00 [facility] traZODone 2020- No 100mg Take 100 Un michael 100 mg 11-08- mg by ity of tablet 19:31: 00:00 mouth at [place] 00 :00 bedtime. [facility] cranberry 2020- No 1{tbl} Take 1 Uni vers fruit 11-08 tablet by ity of (CRANBERRY) 19:30: 00:00 mouth [place] 450 mg Tab 59 :00 daily. [facility] cranberry 2020- No 1{tbl} Take 1 Uni vers fruit 11-08- tablet by ity of (CRANBERRY) 19:30: 00:00 [place] 450 mg Tab 59 :00 daily. [facility] sodium Yes 4mL 4 mL, Univers chloride 7% 11-08 Inhalation it y of (HYPER-JOSE) 14:45: , BID, [place] nebulizer 00 First dose Medi lizzy solution 4 on Sat [place] mL 11/08/20 at 0945, Until Discontinu ed, Routine lidocaine Yes 1{patch 1 Patch, U nivers (LIDODERM) 11-08 } Topical, ity o f 5 % (700 14:00: Administer You as mg/patch) 00 over 12 Medical patch 1 Hours, Branch Patch DAILY, First dose on Sat11/08/20 at 0900, Until Discontinu ed, Routine acetaminoph Yes [id number] 325mg Take 10.25 Univers en 160 mg/5 - mL through it y of mL liquid 00:00: enteral [place] 00 tube every Medical 6 (six) Branch hours as needed (pain, fever). metoprolol 0 Yes [id number] 100mg Take 10 mL Univers 10 mg/mL 4-27 through ity of 00:00: enteral 00 tube every Medical 12 Branch (twelve) hours. pantoprazol 0 Yes [id number] 40mg Take 2 Univers e 20 mg EC 4-27 tablets by ity of tablet 00:00: mouth 00 daily. Medical Branch pantoprazol 0 Yes [id number] 40mg Take 20 mL Univers e 4-27 through ity of (PROTONIX) 00:00: [place] 2 mg/mL 00 tube Medical oral daily. Branch suspension amLODIPine 0 Yes [id number] 5mg Take 1 Univers 5 mg tablet 4-27 tablet ity of 00:00: through enteral Medical tube Branch daily. calcitrioL 0 Yes [id number] .5ug Take 1 Univers 0.5 mcg 4-27 capsule by ity of capsule 00:00: mouth [place] 00 daily. Medical Branch clopidogreL 0 Yes [id number] 75mg Take 1 Univers 75 mg 4-27 tablet ity of tablet 00:00: through [place] enteral Medical tube Branch daily. escitalopra 0 Yes [id number] 20mg Take 1 Univers m oxalate 4-27 tablet ity of 20 mg 00:00: through [place] tablet 00 enteral Medical tube Branch daily. furosemide 0 Yes [id number] 40mg Take 1 Univers 40 mg 4-27 tablet by ity of tablet 00:00: mouth [place] 00 every Medical morning Branch and evening. metFORMIN 0 Yes [id number] 500mg Take 1 Univers 500 mg 4-27 tablet ity of tablet 00:00: through [place] 00 enteral Medical tube 2 Branch (two) times daily with meals. ondansetron 0 Yes [id number] 4mg Take 1 Univers (ZOFRAN 4-27 tablet by ity of ODT) 4 mg 00:00: mouth [place] disintegrat 00 every 8 Medic al ing tablet (eight) Branch hours as needed for Nausea and Vomiting (N/V). traZODone 0 Yes [id number] 100mg Take 1 Univers 100 mg 4-27 tablet ity of tablet 00:00: through [place] 00 enteral Medical tube at Branch bedtime. aspirin 81 2020-0 Yes [id number] 81mg Take 1 Univers mg chewable 4-27 tablet ity of tablet 00:00: through enteral Medical tube Branch daily. atorvastati 2020-0 Yes [id number] 80mg Take 1 Univers n 80 mg 4-27 tablet ity of tablet 00:00: through enteral Medical tube at Branch bedtime. gabapentin 2020-0 Yes [id number] 300mg Take 6 mL Univers 250 mg/5 mL 4-27 through ity o f solution 00:00: enteral 00 tube 3 Medical (three) Branch times daily. ipratropium 2020-0 Yes [id number] 3mL Inhale 3 Univers -albuteroL 4-27 mL every 6 ity of 0.5 mg-3 00:00: (six) [place] mg(2.5 mg 00 hours as Medica l base)/3 mL needed for [facility] nebulizer Wheezing solution or Shortness of Breath. acetaminoph 0 Yes [id number] 325mg Take 10.25 Univers en 160 mg/5 4-27 mL through it y of mL liquid 00:00: enteral 00 tube every Medical 6 (six) Branch hours as needed (pain, fever). metoprolol 2020-0 Yes [id number] 100mg Take 10 mL Univers 10 mg/mL 4-27 through ity of 00:00: enteral 00 tube every Medical 12 Branch (twelve) hours. pantoprazol 2020-0 Yes [id number] 40mg Take 2 Univers e 20 mg EC 4-27 tablets by ity of tablet 00:00: mouth daily. Medical Branch amLODIPine 2020-0 Yes [id number] 5mg Take 1 Univers 5 mg tablet 4-27 tablet ity of 00:00: through enteral Medical tube Branch daily. calcitrioL 2020-0 Yes [id number] .5ug Take 1 Univers 0.5 mcg 4-27 capsule by ity of capsule 00:00: mouth daily. Medical Branch clopidogreL 2020-0 Yes [id number] 75mg Take 1 Univers 75 mg 4-27 tablet ity of tablet 00:00: through [facility] tube Branch daily. escitalopra 2020-0 Yes [id number] 20mg Take 1 [facility] m oxalate 4-27 tablet ity of 20 mg 00:00: through [place] tablet 00 enteral Medical tube Branch daily. furosemide 2020-0 Yes [id number] 40mg Take 1 [facility] 40 mg 4-27 tablet by ity of tablet 00:00: mouth [place] 00 every Medical morning Branch and evening. metFORMIN 2020-0 Yes [id number] 500mg Take 1 [facility] 500 mg 4-27 tablet ity of tablet 00:00: through [place] 00 enteral Medical tube 2 Branch (two) times daily with meals. ondansetron 0 Yes [id number] 4mg Take 1 [facility] (ZOFRAN 4-27 tablet by ity of ODT) 4 mg 00:00: mouth [place] disintegrat 00 every 8 Medic al ing tablet (eight) Branch hours as needed for Nausea and Vomiting (N/V). traZODone 0 Yes [id number] 100mg Take 1 [facility] 100 mg 4-27 tablet ity of tablet 00:00: through [place] 00 enteral Medical tube at Branch bedtime. aspirin 81 0 Yes [id number] 81mg Take 1 [facility] mg chewable 4-27 tablet ity of tablet 00:00: through [place] 00 enteral Medical tube Branch daily. atorvastati Yes [id number] 80mg Take 1 [facility] n 80 mg 4-27 tablet ity of tablet 00:00: through [place] 00 enteral Medical tube at Branch bedtime. ipratropium 0 Yes [id number] 3mL Inhale 3 [facility] -albuteroL 4-27 mL every 6 ity of 0.5 mg-3 00:00: (six) [place] mg(2.5 mg 00 hours as Medica l base)/3 mL needed for [facility] nebulizer Wheezing solution or Shortness of Breath. acetaminoph 0 Yes [id number] 325mg Take 10.25 [facility] en 160 mg/5 4-27 mL through it y of mL liquid 00:00: enteral [place] 00 tube every Medical 6 (six) Branch hours as needed (pain, fever). metoprolol 0 Yes [id number] 100mg Take 10 mL [facility] 10 mg/mL 4-27 through ity of 00:00: enteral [place] 00 tube every Medical 12 Branch (twelve) hours. pantoprazol 0 Yes [id number] 40mg Take 2 [facility] e 20 mg EC 4-27 tablets by ity of tablet 00:00: mouth [place] 00 daily. Medical Branch amLODIPine 0 Yes [id number] 5mg Take 1 [facility] 5 mg tablet 4-27 tablet ity of 00:00: through [place] 00 enteral Medical tube Branch daily. calcitrioL Yes [id number] .5ug Take 1 [facility] 0.5 mcg 4-27 capsule by ity of capsule 00:00: mouth [place] 00 daily. Medical Branch clopidogreL Yes [id number] 75mg Take 1 [facility] 75 mg 4-27 tablet ity of tablet 00:00: through [place] 00 enteral Medical tube Branch daily. escitalopra Yes [id number] 20mg Take 1 [facility] m oxalate 4-27 tablet ity of 20 mg 00:00: through [facility] 00 enteral Medical tube Branch daily. furosemide Yes [id number] 40mg Take 1 [facility] 40 mg 4-27 tablet by ity of tablet 00:00: mouth [place] 00 every Medical morning Branch and evening. metFORMIN Yes [id number] 500mg Take 1 [facility] 500 mg 4-27 tablet ity of tablet 00:00: through [place] 00 enteral Medical tube 2 Branch (two) times daily with meals. ondansetron Yes [id number] 4mg Take 1 [facility] (ZOFRAN 4-27 tablet by ity of ODT) 4 mg 00:00: mouth [place] disintegrat 00 every 8 Medic al ing tablet (eight) Branch hours as needed for Nausea and Vomiting (N/V). traZODone Yes [id number] 100mg Take 1 [facility] 100 mg 4-27 tablet ity of tablet 00:00: through [place] 00 enteral Medical tube at Branch bedtime. aspirin 81 0 Yes [id number] 81mg Take 1 [facility] mg chewable 4-27 tablet ity of tablet 00:00: through [place] 00 enteral Medical tube Branch daily. atorvastati Yes [id number] 80mg Take 1 [facility] n 80 mg 4-27 tablet ity of tablet 00:00: through [place] 00 enteral Medical tube at Branch bedtime. ipratropium Yes [id number] 3mL Inhale 3 [facility] -albuteroL 4-27 mL every 6 ity of 0.5 mg-3 00:00: (six) [place] mg(2.5 mg 00 hours as Medica l base)/3 mL needed for [facility] nebulizer Wheezing solution or Shortness of Breath. acetaminoph Yes [id number] 325mg Take 10.25 [facility] en 160 mg/5 4-27 mL through it y of mL liquid 00:00: enteral [place] 00 tube every Medical 6 (six) Branch hours as needed (pain, fever). pantoprazol Yes [id number] 40mg Take 2 [facility] e 20 mg EC 4-27 tablets by ity of tablet 00:00: mouth [place] 00 daily. Medical Branch amLODIPine Yes [id number] 5mg Take 1 [facility] 5 mg tablet 4-27 tablet ity of 00:00: through [place] enteral Medical tube Branch daily. calcitrioL Yes [id number] .5ug Take 1 [facility] 0.5 mcg 4-27 capsule by ity of capsule 00:00: mouth [place] 00 daily. Medical Branch clopidogreL Yes [id number] 75mg Take 1 [facility] 75 mg 4-27 tablet ity of tablet 00:00: through [place] 00 enteral Medical tube Branch daily. escitalopra Yes [id number] 20mg Take 1 [facility] m oxalate 4-27 tablet ity of 20 mg 00:00: through [facility] 00 enteral Medical tube Branch daily. furosemide Yes [id number] 40mg Take 1 [facility] 40 mg 4-27 tablet by ity of tablet 00:00: mouth [place] 00 every Medical morning Branch and evening. metFORMIN Yes [id number] 500mg Take 1 [facility] 500 mg 4-27 tablet ity of tablet 00:00: through [place] 00 enteral Medical tube 2 Branch (two) times daily with meals. ondansetron Yes [id number] 4mg Take 1 [facility] (ZOFRAN 4-27 tablet by ity of ODT) 4 mg 00:00: mouth [place] disintegrat 00 every 8 Medic al ing tablet (eight) Branch hours as needed for Nausea and Vomiting (N/V). traZODone Yes [id number] 100mg Take 1 [facility] 100 mg 4-27 tablet ity of tablet 00:00: through [place] 00 enteral Medical tube at Branch bedtime. aspirin 81 2021-0 Yes [id number] 81mg Take 1 [facility] mg chewable 4-27 tablet ity of tablet 00:00: through [place] enteral Medical tube Branch daily. atorvastati 2020-0 Yes [id number] 80mg Take 1 [facility] n 80 mg 4-27 tablet ity of tablet 00:00: through enteral Medical tube at Branch bedtime. ipratropium 2020-0 Yes [id number] 3mL Inhale 3 [facility] -albuteroL 4-27 mL every 6 ity of 0.5 mg-3 00:00: (six) [place] mg(2.5 mg 00 hours as Medica l base)/3 mL needed for [facility] nebulizer Wheezing solution or Shortness of Breath. acetaminoph 2020-0 Yes [id number] 325mg Take 10.25 [facility] en 160 mg/5 4-27 mL through it y of mL liquid 00:00: enteral [place] 00 tube every Medical 6 (six) Branch hours as needed (pain, fever). pantoprazol 2020-0 Yes [id number] 40mg Take 2 [facility] e 20 mg EC 4-27 tablets by ity of tablet 00:00: mouth daily. Medical Branch amLODIPine 2020-0 Yes [id number] 5mg Take 1 [facility] 5 mg tablet 4-27 tablet ity of 00:00: through [place] enteral Medical tube Branch daily. calcitrioL 2020-0 Yes [id number] .5ug Take 1 [facility] 0.5 mcg 4-27 capsule by ity of capsule 00:00: mouth [place] daily. Medical Branch clopidogreL 2020-0 Yes [id number] 75mg Take 1 [facility] 75 mg 4-27 tablet ity of tablet 00:00: through [place] enteral Medical tube Branch daily. escitalopra 2020-0 Yes [id number] 20mg Take 1 [facility] m oxalate 4-27 tablet ity of 20 mg 00:00: through [facility] 00 enteral Medical tube Branch daily. furosemide 2020-0 Yes [id number] 40mg Take 1 [facility] 40 mg 4-27 tablet by ity of tablet 00:00: mouth [place] 00 every Medical morning Branch and evening. metFORMIN 2020-0 Yes [id number] 500mg Take 1 [facility] 500 mg 4-27 tablet ity of tablet 00:00: through [place] enteral Medical tube 2 Branch (two) times daily with meals. ondansetron 0 Yes [id number] 4mg Take 1 [facility] (ZOFRAN 4-27 tablet by ity of ODT) 4 mg 00:00: mouth [place] disintegrat 00 every 8 Medic al ing tablet (eight) Branch hours as needed for Nausea and Vomiting (N/V). traZODone 0 Yes [id number] 100mg Take 1 [facility] 100 mg 4-27 tablet ity of tablet 00:00: through 00 enteral Medical tube at Branch bedtime. aspirin 81 2020-0 Yes [id number] 81mg Take 1 [facility] mg chewable 4-27 tablet ity of tablet 00:00: through enteral Medical tube Branch daily. atorvastati 0 Yes [id number] 80mg Take 1 [facility] n 80 mg 4-27 tablet ity of tablet 00:00: through enteral Medical tube at Branch bedtime. ipratropium 0 Yes [id number] 3mL Inhale 3 [facility] -albuteroL 4-27 mL every 6 ity of 0.5 mg-3 00:00: (six) [place] mg(2.5 mg 00 hours as Medica l base)/3 mL needed for [facility] nebulizer Wheezing solution or Shortness of Breath. acetaminoph 0 Yes [id number] 325mg Take 10.25 [facility] en 160 mg/5 4-27 mL through it y of mL liquid 00:00: enteral 00 tube every Medical 6 (six) Branch hours as needed (pain, fever). pantoprazol 0 Yes [id number] 40mg Take 2 [facility] e 20 mg EC 4-27 tablets by ity of tablet 00:00: mouth 00 daily. Medical Branch amLODIPine 2020-0 Yes [id number] 5mg Take 1 [facility] 5 mg tablet 4-27 tablet ity of 00:00: through enteral Medical tube Branch daily. calcitrioL 2020-0 Yes [id number] .5ug Take 1 [facility] 0.5 mcg 4-27 capsule by ity of capsule 00:00: mouth 00 daily. Medical Branch clopidogreL 2020-0 Yes [id number] 75mg Take 1 [facility] 75 mg 4-27 tablet ity of tablet 00:00: through enteral Medical tube Branch daily. escitalopra 2020-0 Yes [id number] 20mg Take 1 [facility] m oxalate 4-27 tablet ity of 20 mg 00:00: through [place] tablet 00 enteral Medical tube Branch daily. furosemide 2020-0 Yes [id number] 40mg Take 1 [facility] 40 mg 4-27 tablet by ity of tablet 00:00: mouth [place] 00 every Medical morning Branch and evening. metFORMIN 2020-0 Yes [id number] 500mg Take 1 [facility] 500 mg 4-27 tablet ity of tablet 00:00: through 00 enteral Medical tube 2 Branch (two) times daily with meals. ondansetron 2020-0 Yes [id number] 4mg Take 1 [facility] (ZOFRAN 4-27 tablet by ity of ODT) 4 mg 00:00: mouth [place] disintegrat 00 every 8 Medic al ing tablet (eight) Branch hours as needed for Nausea and Vomiting (N/V). traZODone 2020-0 Yes [id number] 100mg Take 1 [facility] 100 mg 4-27 tablet ity of tablet 00:00: through 00 enteral Medical tube at Branch bedtime. aspirin 81 2020-0 Yes [id number] 81mg Take 1 [facility] mg chewable 4-27 tablet ity of tablet 00:00: through 00 enteral Medical tube Branch daily. atorvastati 2020-0 Yes [id number] 80mg Take 1 [facility] n 80 mg 4-27 tablet ity of tablet 00:00: through 00 enteral Medical tube at Branch bedtime. ipratropium 2020-0 Yes [id number] 3mL Inhale 3 [facility] -albuteroL 4-27 mL every 6 ity of 0.5 mg-3 00:00: (six) [place] mg(2.5 mg 00 hours as Medica l base)/3 mL needed for [facility] nebulizer Wheezing solution or Shortness of Breath. acetaminoph 2020-0 Yes [id number] 325mg Take 10.25 [facility] en 160 mg/5 4-27 mL through it y of mL liquid 00:00: enteral [place] 00 tube every Medical 6 (six) Branch hours as needed (pain, fever). pantoprazol 2020-0 Yes [id number] 40mg Take 2 [facility] e 20 mg EC 4-27 tablets by ity of tablet 00:00: mouth 00 daily. Medical Branch amLODIPine 2021-0 Yes [id number] 5mg Take 1 [facility] 5 mg tablet 4-27 tablet ity of 00:00: through [place] enteral Medical tube Branch daily. calcitrioL Yes [id number] .5ug Take 1 [facility] 0.5 mcg 4-27 capsule by ity of capsule 00:00: mouth [place] 00 daily. Medical Branch clopidogreL 0 Yes [id number] 75mg Take 1 [facility] 75 mg 4-27 tablet ity of tablet 00:00: through [place] enteral Medical tube Branch daily. escitalopra Yes [id number] 20mg Take 1 [facility] m oxalate 4-27 tablet ity of 20 mg 00:00: through [facility] 00 enteral Medical tube Branch daily. furosemide Yes [id number] 40mg Take 1 [facility] 40 mg 4-27 tablet by ity of tablet 00:00: mouth [place] 00 every Medical morning Branch and evening. metFORMIN Yes [id number] 500mg Take 1 [facility] 500 mg 4-27 tablet ity of tablet 00:00: through [place] enteral Medical tube 2 Branch (two) times daily with meals. ondansetron Yes [id number] 4mg Take 1 [facility] (ZOFRAN 4-27 tablet by ity of ODT) 4 mg 00:00: mouth [place] disintegrat 00 every 8 Medic al ing tablet (eight) Branch hours as needed for Nausea and Vomiting (N/V). traZODone Yes [id number] 100mg Take 1 [facility] 100 mg 4-27 tablet ity of tablet 00:00: through [place] enteral Medical tube at Branch bedtime. aspirin 81 0 Yes [id number] 81mg Take 1 [facility] mg chewable 4-27 tablet ity of tablet 00:00: through [place] 00 enteral Medical tube Branch daily. atorvastati Yes [id number] 80mg Take 1 [facility] n 80 mg 4-27 tablet ity of tablet 00:00: through [place] enteral Medical tube at Branch bedtime. ipratropium 0 Yes [id number] 3mL Inhale 3 [facility] -albuteroL 4-27 mL every 6 ity of 0.5 mg-3 00:00: (six) [place] mg(2.5 mg 00 hours as Medica l base)/3 mL needed for [facility] nebulizer Wheezing solution or Shortness of Breath. acetaminoph 0 Yes [id number] 325mg Take 10.25 [facility] en 160 mg/5 4-27 mL through it y of mL liquid 00:00: enteral [place] 00 tube every Medical 6 (six) Branch hours as needed (pain, fever). pantoprazol 0 Yes [id number] 40mg Take 2 [facility] e 20 mg EC 4-27 tablets by ity of tablet 00:00: mouth [place] 00 daily. Medical Branch amLODIPine 0 Yes [id number] 5mg Take 1 [facility] 5 mg tablet 4-27 tablet ity of 00:00: through [place] enteral Medical tube Branch daily. calcitrioL Yes [id number] .5ug Take 1 [facility] 0.5 mcg 4-27 capsule by ity of capsule 00:00: mouth [place] 00 daily. Medical Branch clopidogreL Yes [id number] 75mg Take 1 [facility] 75 mg 4-27 tablet ity of tablet 00:00: through [place] enteral Medical tube Branch daily. escitalopra Yes [id number] 20mg Take 1 [facility] m oxalate 4-27 tablet ity of 20 mg 00:00: through [facility] 00 enteral Medical tube Branch daily. furosemide Yes [id number] 40mg Take 1 [facility] 40 mg 4-27 tablet by ity of tablet 00:00: mouth [place] 00 every Medical morning Branch and evening. metFORMIN Yes [id number] 500mg Take 1 [facility] 500 mg 4-27 tablet ity of tablet 00:00: through [place] enteral Medical tube 2 Branch (two) times daily with meals. ondansetron 0 Yes [id number] 4mg Take 1 [facility] (ZOFRAN 4-27 tablet by ity of ODT) 4 mg 00:00: mouth [place] disintegrat 00 every 8 Medic al ing tablet (eight) Branch hours as needed for Nausea and Vomiting (N/V). traZODone 0 Yes [id number] 100mg Take 1 [facility] 100 mg 4-27 tablet ity of tablet 00:00: through [place] 00 enteral Medical tube at Branch bedtime. aspirin 81 0 Yes [id number] 81mg Take 1 [facility] mg chewable 4-27 tablet ity of tablet 00:00: through [place] 00 enteral Medical tube Branch daily. atorvastati 0 Yes [id number] 80mg Take 1 [facility] n 80 mg 4-27 tablet ity of tablet 00:00: through [place] enteral Medical tube at Branch bedtime. ipratropium 2020-0 Yes [id number] 3mL Inhale 3 [facility] -albuteroL 4-27 mL every 6 ity of 0.5 mg-3 00:00: (six) [place] mg(2.5 mg 00 hours as Medica l base)/3 mL needed for [facility] nebulizer Wheezing solution or Shortness of Breath. acetaminoph 0 Yes [id number] 325mg Take 10.25 [facility] en 160 mg/5 4-27 mL through it y of mL liquid 00:00: enteral [place] 00 tube every Medical 6 (six) Branch hours as needed (pain, fever). pantoprazol 0 Yes [id number] 40mg Take 2 [facility] e 20 mg EC 4-27 tablets by ity of tablet 00:00: mouth [place] daily. Medical Branch amLODIPine 2020-0 Yes [id number] 5mg Take 1 [facility] 5 mg tablet 4-27 tablet ity of 00:00: through [place] enteral Medical tube Branch daily. calcitrioL 2020-0 Yes [id number] .5ug Take 1 [facility] 0.5 mcg 4-27 capsule by ity of capsule 00:00: mouth [place] daily. Medical Branch clopidogreL 0 Yes [id number] 75mg Take 1 [facility] 75 mg 4-27 tablet ity of tablet 00:00: through [place] enteral Medical tube Branch daily. escitalopra 2020-0 Yes [id number] 20mg Take 1 [facility] m oxalate 4-27 tablet ity of 20 mg 00:00: through [place] tablet 00 enteral Medical tube Branch daily. furosemide 2020-0 Yes [id number] 40mg Take 1 [facility] 40 mg 4-27 tablet by ity of tablet 00:00: mouth [place] 00 every Medical morning Branch and evening. metFORMIN 2020-0 Yes [id number] 500mg Take 1 [facility] 500 mg 4-27 tablet ity of tablet 00:00: through [place] [address] enteral Medical tube 2 Branch (two) times daily with meals. ondansetron 2020-0 Yes [id number] 4mg Take 1 [facility] (ZOFRAN 4-27 tablet by ity of ODT) 4 mg 00:00: mouth [place] disintegrat 00 every 8 Medic al ing tablet (eight) Branch hours as needed for Nausea and Vomiting (N/V). traZODone 0 Yes [id number] 100mg Take 1 [facility] 100 mg 4-27 tablet ity of tablet 00:00: through enteral Medical tube at Branch bedtime. aspirin 81 0 Yes [id number] 81mg Take 1 [facility] mg chewable 4-27 tablet ity of tablet 00:00: through [place] enteral Medical tube Branch daily. atorvastati Yes [id number] 80mg Take 1 [facility] n 80 mg 4-27 tablet ity of tablet 00:00: through [place] enteral Medical tube at Branch bedtime. ipratropium 0 Yes [id number] 3mL Inhale 3 [facility] -albuteroL 4-27 mL every 6 ity of 0.5 mg-3 00:00: (six) [place] mg(2.5 mg 00 hours as Medica l base)/3 mL needed for [facility] nebulizer Wheezing solution or Shortness of Breath. acetaminoph Yes [id number] 325mg Take 10.25 [facility] en 160 mg/5 4-27 mL through it y of mL liquid 00:00: enteral [place] 00 tube every Medical 6 (six) Branch hours as needed (pain, fever). pantoprazol 0 Yes [id number] 40mg Take 2 [facility] e 20 mg EC 4-27 tablets by ity of tablet 00:00: mouth [place] 00 daily. Medical Branch amLODIPine 0 Yes [id number] 5mg Take 1 [facility] 5 mg tablet 4-27 tablet ity of 00:00: through [place] enteral Medical tube Branch daily. calcitrioL 2020-0 Yes [id number] .5ug Take 1 [facility] 0.5 mcg 4-27 capsule by ity of capsule 00:00: mouth [place] 00 daily. Medical Branch clopidogreL 0 Yes [id number] 75mg Take 1 [facility] 75 mg 4-27 tablet ity of tablet 00:00: through [place] enteral Medical tube Branch daily. escitalopra Yes [id number] 20mg Take 1 [facility] m oxalate 4-27 tablet ity of 20 mg 00:00: through [place] tablet 00 enteral Medical tube Branch daily. furosemide 2020-0 Yes [id number] 40mg Take 1 [facility] 40 mg 4-27 tablet by ity of tablet 00:00: mouth [place] 00 every Medical morning Branch and evening. metFORMIN 2020-0 Yes [id number] 500mg Take 1 [facility] 500 mg 4-27 tablet ity of tablet 00:00: through 00 enteral Medical tube 2 Branch (two) times daily with meals. ondansetron 2020-0 Yes [id number] 4mg Take 1 [facility] (ZOFRAN 4-27 tablet by ity of ODT) 4 mg 00:00: mouth [place] disintegrat 00 every 8 Medic al ing tablet (eight) Branch hours as needed for Nausea and Vomiting (N/V). traZODone 2020-0 Yes [id number] 100mg Take 1 [facility] 100 mg 4-27 tablet ity of tablet 00:00: through 00 enteral Medical tube at Branch bedtime. aspirin 81 2020-0 Yes [id number] 81mg Take 1 [facility] mg chewable 4-27 tablet ity of tablet 00:00: through [place] 00 enteral Medical tube Branch daily. atorvastati 0 Yes [id number] 80mg Take 1 [facility] n 80 mg 4-27 tablet ity of tablet 00:00: through 00 enteral Medical tube at Branch bedtime. ipratropium 2020-0 Yes [id number] 3mL Inhale 3 [facility] -albuteroL 4-27 mL every 6 ity of 0.5 mg-3 00:00: (six) [place] mg(2.5 mg 00 hours as Medica l base)/3 mL needed for [facility] nebulizer Wheezing solution or Shortness of Breath. acetaminoph 2020-0 Yes [id number] 325mg Take 10.25 [facility] en 160 mg/5 4-27 mL through it y of mL liquid 00:00: enteral 00 tube every Medical 6 (six) Branch hours as needed (pain, fever). pantoprazol 2020-0 Yes [id number] 40mg Take 2 [facility] e 20 mg EC 4-27 tablets by ity of tablet 00:00: mouth 00 daily. Medical Branch amLODIPine 2020-0 Yes [id number] 5mg Take 1 [facility] 5 mg tablet 4-27 tablet ity of 00:00: through 00 enteral Medical tube Branch daily. calcitrioL 0 Yes [id number] .5ug Take 1 [facility] 0.5 mcg 4-27 capsule by ity of capsule 00:00: mouth [place] 00 daily. Medical Branch clopidogreL 2020-0 Yes [id number] 75mg Take 1 [facility] 75 mg 4-27 tablet ity of tablet 00:00: through [place] 00 enteral Medical tube Branch daily. escitalopra 0 Yes [id number] 20mg Take 1 [facility] m oxalate 4-27 tablet ity of 20 mg 00:00: through [facility] 00 enteral Medical tube Branch daily. furosemide 0 Yes [id number] 40mg Take 1 [facility] 40 mg 4-27 tablet by ity of tablet 00:00: mouth [place] 00 every Medical morning Branch and evening. metFORMIN 0 Yes [id number] 500mg Take 1 [facility] 500 mg 4-27 tablet ity of tablet 00:00: through [place] 00 enteral Medical tube 2 Branch (two) times daily with meals. ondansetron 0 Yes [id number] 4mg Take 1 [facility] (ZOFRAN 4-27 tablet by ity of ODT) 4 mg 00:00: mouth [place] disintegrat 00 every 8 Medic al ing tablet (eight) Branch hours as needed for Nausea and Vomiting (N/V). traZODone 0 Yes [id number] 100mg Take 1 [facility] 100 mg 4-27 tablet ity of tablet 00:00: through [place] 00 enteral Medical tube at Branch bedtime. aspirin 81 2020-0 Yes [id number] 81mg Take 1 [facility] mg chewable 4-27 tablet ity of tablet 00:00: through [place] 00 enteral Medical tube Branch daily. atorvastati 0 Yes [id number] 80mg Take 1 [facility] n 80 mg 4-27 tablet ity of tablet 00:00: through [place] 00 enteral Medical tube at Branch bedtime. ipratropium 0 Yes [id number] 3mL Inhale 3 [facility] -albuteroL 4-27 mL every 6 ity of 0.5 mg-3 00:00: (six) [place] mg(2.5 mg 00 hours as Medica l base)/3 mL needed for [facility] nebulizer Wheezing solution or Shortness of Breath. acetaminoph 0 Yes [id number] 325mg Take 10.25 [facility] en 160 mg/5 4-27 mL through it y of mL liquid 00:00: enteral [place] 00 tube every Medical 6 (six) Branch hours as needed (pain, fever). pantoprazol 0 Yes [id number] 40mg Take 2 [facility] e 20 mg EC 4-27 tablets by ity of tablet 00:00: mouth [place] 00 daily. Medical Branch amLODIPine 0 Yes [id number] 5mg Take 1 [facility] 5 mg tablet 4-27 tablet ity of 00:00: through [place] enteral Medical tube Branch daily. calcitrioL Yes [id number] .5ug Take 1 [facility] 0.5 mcg 4-27 capsule by ity of capsule 00:00: mouth [place] 00 daily. Medical Branch clopidogreL Yes [id number] 75mg Take 1 [facility] 75 mg 4-27 tablet ity of tablet 00:00: through [place] enteral Medical tube Branch daily. escitalopra Yes [id number] 20mg Take 1 [facility] m oxalate 4-27 tablet ity of 20 mg 00:00: through [facility] 00 enteral Medical tube Branch daily. furosemide Yes [id number] 40mg Take 1 [facility] 40 mg 4-27 tablet by ity of tablet 00:00: mouth [place] 00 every Medical morning Branch and evening. metFORMIN Yes [id number] 500mg Take 1 [facility] 500 mg 4-27 tablet ity of tablet 00:00: through [place] enteral Medical tube 2 Branch (two) times daily with meals. ondansetron Yes [id number] 4mg Take 1 [facility] (ZOFRAN 4-27 tablet by ity of ODT) 4 mg 00:00: mouth [place] disintegrat 00 every 8 Medic al ing tablet (eight) Branch hours as needed for Nausea and Vomiting (N/V). traZODone 0 Yes [id number] 100mg Take 1 [facility] 100 mg 4-27 tablet ity of tablet 00:00: through [place] 00 enteral Medical tube at Branch bedtime. aspirin 81 2020-0 Yes [id number] 81mg Take 1 [facility] mg chewable 4-27 tablet ity of tablet 00:00: through [place] 00 enteral Medical tube Branch daily. atorvastati 0 Yes [id number] 80mg Take 1 [facility] n 80 mg 4-27 tablet ity of tablet 00:00: through 00 enteral Medical tube at Branch bedtime. ipratropium Yes [id number] 3mL Inhale 3 [facility] -albuteroL 4-27 mL every 6 ity of 0.5 mg-3 00:00: (six) [place] mg(2.5 mg 00 hours as Medica l base)/3 mL needed for [facility] nebulizer Wheezing solution or Shortness of Breath. metoprolol 2020- No [id number] 100mg Take 10 mL [facility] 10 mg/mL 11-08 through ity of 00:00: 00:00 enteral [place] 00 :00 tube every Medical 12 Branch (twelve) hours. metoprolol 2020- No [id number] 100mg Take 10 mL [facility] 10 mg/mL 11-08 through ity of 00:00: 00:00 enteral [place] 00 :00 tube every Medical 12 Branch (twelve) hours. pantoprazol 2020- No [id number] 40mg Take 20 mL [facility] e 11-08 through ity of (PROTONIX) 00:00: 00:00 enteral [place] 2 mg/mL 00 :00 tube Medical oral daily. Branch suspension gabapentin 2020- No [id number] 300mg Take 6 mL Univers 250 mg/5 [...] Until Discontinu ed, Routine iohexoL 2020- No [id number] 35mL 35 mL, Uni vers (OMNIPAQUE 11-07 Injection, it y of 300-50 mL)) 20:40: 21:03 TITRATE - [place] injection 00 :00 FOR Medical 35 mL PROCEDURE Branch USE, 1 dose, Starting Sat11/07/20 at 1540, Until Sat11/07/20 at 1603, Routine, Other ceFAZolin Yes Slow IV Unive rs (ANCEF) 11-07 Push, PRN, ity of injection 20:30: [place] [facility] Medical 11/07/20 at Branch 1530, Until Discontinu ed, KATHY lidocaine Yes PRN, Univers 1% (PF) 11-07 Starting ity of (XYLOCAINE) 20:27: Mon [place] injection 00 11/07/20 at [facility] 1527, Branch Until Discontinu ed, Routine iohexol 2020- No [id number] 100mL 100 mL, Univers (OMNIPAQUE 11-07 Oral, ity of 350 BULK) 14:45: 14:00 ONCE, 1 [place] 100 mL 00 :00 dose, [facility] Medical 11/07/20 at [place] 0945, KATHY gabapentin Yes 300mg 300 mg, Uni vers (NEURONTIN) 11-06 Enteral, ity of 250 mg/5 mL 01:00: TID, First [place] solution 00 dose on Medical 300 mg Sat [place] 11/05/20 at 2000, Until Discontinu ed, Routine HYDROcodone 2020- No 5mg 5 mg, Univ ers -acetaminop 11-05 Oral, ity of hen (HYCET) 20:07: 20:37 ONCE, 1 [place] 7.5-325 00 :00 dose, Sat Medical mg/15 mL 11/05/20 at [facility] h solution 5 1515, mg Routine acetaminoph Yes 325mg 325 mg, Un michael en 11-05 Enteral, ity of (TYLENOL) 20:06: Q6HPRN, [place] 160 mg/5 mL 54 Starting [facility] liquid 325 Sat [place] mg 11/05/20 at 1506, Until Discontinu ed, Routine, pain, fever Potassium 2020- No 20meq 20 mEq, Uni vers Bicarb-Citr 11-05 Enteral, ity of ic Acid 11:45: 14:22 ONCE, 1 [place] (EFFER-K) 00 :00 dose, Sat Medic al effervescen 11/05/20 at anch t tablet 20 0645, mEq Routine furosemide 2020- No 20mg 20 mg, Univ ers (LASIX) 11-04 Slow IV ity of injection 22:00: 23:28 Push, [place] 20 mg 00 :00 ONCE, 1 Medical dose, Sat [place] 11/04/20 at 1700, Routine metoprolol 2020- No 75mg 75 mg, Univ ers (LOPRESSOR) 11-04 Enteral, ity of 10 mg/mL 21:15: 18:40 Q12H ABX, You as oral 00 :26 First dose Medical suspension (after Branch 75 mg last modificati on) on Sat11/04/20 at 1615, Until Discontinu ed, Routine iohexol 2020- No [id number] 25mL 25 mL, Un michael (OMNIPAQUE 11-04 Oral, ity of 350 BULK) 14:30: 14:40 ONCE, 1 [place] 25 mL 00 :00 dose, Sat [facility] 11/04/20 at Branch 0930, KATHY cranberry Yes 1{tbl} Take 1 Univ ers fruit 11-03 tablet by ity of (CRANBERRY) 23:40: mouth [place] 450 mg Tab 55 daily. [facility] Branch furosemide 2020- No 20mg 20 mg, Univ ers (LASIX) 11-03 Slow IV ity of injection 21:58: 22:08 Push, [place] 20 mg 00 :00 ONCE, 1 Medical dose, [facility] 11/03/20 at 1700, Routine metoprolol 2020- No [...] dose [place] mL 00 :17 on Sat [facility] 11/02/20 at Branch 2000, Until Discontinu ed, [...] of ic Acid 19:15: 20:52 ONCE, 1 [place] (EFFER-K) 00 :00 dose, Sat Medic al [...] Yes Topical, Un michael polymyxin B 11-01 [id number], ity of (POLYSPORIN 20:26: Starting [place] ) 41 Tue Medical 500-10,000 11/01/20 at [facility] unit/gram 1526, topical Until ointment Discontinu ed, [...] 00 :39 CONTINUOUS Medical , Starting Branch [facility] 10/31/20 at 2215, Until Sat11/01/20 at 0803, Routine insulin Yes 14U 14 Units, Unive rs glargine 10-31 Subcutaneo ity o f (LANTUS 14:00: us, DAILY, [place] U-100) 00 First dose Medical injection (after Branch 14 Units last modificati on) on [facility] 10/31/20 at 0900, Until Discontinu ed, Routine Potassium 2020- No 40meq 40 mEq, Uni vers Bicarb-Citr 10-31 Enteral, ity of ic Acid 13:15: 13:13 ONCE, 1 [place] (EFFER-K) 00 :00 dose, [facility] Medic al effervescen 10/31/20 at Br anch t tablet 40 0815, mEq Routine furosemide 2020- No 20mg 20 mg, Univ ers (LASIX) 10-31 Slow IV ity of injection 05:45: 08:40 Push, [place] 20 mg 00 :00 ONCE, 1 Medical dose, [facility] 10/31/20 at 0045, Routine insulin Yes 4U 4 Units, Univer s lispro 10-30 Subcutaneo ity of (human) 22:00: us, TID [place] (HumaLOG 00 MEALS, Medical U-100) First dose Branch injection 4 (after Units last modificati on) on [place] 10/30/20 at 1700, Until Discontinu ed, Routine Sliding 2020- No Subcutaneo Uni vers Scale 10-30 04-20 us, Q4H, ity of Insulin - 21:00: 02:25 First dose [place] Lispro 00 :53 on [facility] (HumaLOG) + 10/30/20 at Br anch [...] (after Branch Units last modificati on) on 10/30/20 at 0900, Until Discontinu ed, Routine metoprolol No 50mg 50 mg, Univ ers (LOPRESSOR) 10-30 Enteral, ity of 10 mg/mL 13:00: 16:55 BID, First [place] oral 00 :29 dose Medical suspension (after Branch 50 mg last modificati on) on [place] 10/30/20 at 0800, Until Discontinu ed, Routine insulin No 2U 2 Units, Unive rs lispro 10-30 Subcutaneo ity of (human) 13:00: 19:53 us, TID [place] (HumaLOG 00 :49 MEALS, Medical U-100) First dose Branch injection 2 on [place] Units 10/30/20 at 0800, Until Discontinu ed, Routine Potassium No 20meq 20 mEq, Uni vers Bicarb-Citr 10-30 Enteral, ity of ic Acid 07:15: 06:24 ONCE, 1 [place] (EFFER-K) 00 :00 dose, [place] Medic al effervescen 10/30/20 at Br anch [...] 2330, 250 piggyback mL sulfur 2020- No [id number] 4mL 4 mL, Univ ers hexafluorid 10-28 Intravenou i ty of e microsphr 21:00: 21:00 s, ONCE, 1 [place] (LUMASON) 00 :00 dose, Fri Medic al injection 4 10/28/20 at Br anch mL 1600, Routine
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 10/27/20 at 0000, Routine amLODIPine No 5mg 5 mg, Unive rs benzoate 10-27 Oral, ity of (KATERZIA) 02:15: 17:26 DAILY, [place] 1 mg/mL 00 :04 First dose Medica l oral on Sat Branch suspension 10/26/20 at 5 mg 2115, Until Discontinu ed, Routine traZODone 2020- No 100mg 100 mg, Uni vers (COMPOUNDED 10-27 04-16 Enteral, ity of ) oral 02:15: 13:45 [...] ed, Routine metoprolol No 5mg 5 [facility], [facility] 10-25 Intravenou i ty of injection 5 21:00: 20:00 s, ONCE, 1 [place] mg 00 :00 dose, [facility] 10/25/20 at Branch 1600, Routine sodium No 4mL 4 mL, Univers chloride 7% 10-25 Inhalation i ty of (HYPER-JOSE) 16:15: 14:04 , BID, You as nebulizer 00 :03 First dose Medi lizzy solution 4 on Sat [place] mL 10/25/20 at 1115, Until Discontinu ed, Routine ampicillin No 2000mg 2,000 mg, Univers (POLYCILLIN 10-25 IV ity of -N) 2,000 16:15: 14:06 Piggyback, [place] mg in NaCl 00 :40 Q8H ABX, Medic al 0.9% (NS) First dose Bran ch 100 mL on [facility] MINI-BAG 10/25/20 at 1115, Until Discontinu ed, 100 mL
R russ for Anti-Infec tive: Documented Infection< br>Documen tennille Infection Site: Urine<br&g t;Duration of Therapy: 7 days lactulose No 45mL 45 mL, [facility] rs (CEPHULAC) 10-25 Enteral, ity of solution 45 16:15: 15:35 ONCE, 1 [place] mL 00 :00 dose, [facility] 10/25/20 at Branch 1115, Routine ipratropium No 3mL 3 mL, Univ ers -albuteroL 10-25 Inhalation it y of (DUONEB) 16:13: 16:16 , QIDPRN, You as 0.5 mg-3 26 :25 Starting Medical mg(2.5 mg [facility])/3 mL 10/25/20 at nebulizer 1113, solution 3 [...] g 00 :[address] dose [address] on [facility] 10/24/20 at 1430, Until Discontinu ed, Routine vancomycin 2020- No 15mg/kg 1,000 mg Univers (VANCOCIN) 10-23 (rounded ity of 1,000 mg in 18:30: 00:35 from 919.5 [place] NaCl 0.9% 00 :47 mg = 15 Medical (NS) 250 mL mg/kg Branch VIAL-MATE ?61.3 kg), IV IV piggyback Piggyback, Q24H ABX, First dose (after last modificati on) on [place] 10/23/20 at 1330, Until Discontinu ed, 250 mL
Reas on for Anti-Infec tive: Empiric Therapy for Suspected Infection< br>Empiric Therapy Site: Respirator y
Durat ion of therapy: 72 hours aspirin Yes 81mg 81 mg, Univers chewable 10-23 Oral, ity of tablet 81 14:00: DAILY, [place] mg 00 First dose Medical on [facility] 10/23/20 at 0900, Until Discontinu ed, Routine pantoprazol No 40mg 40 mg, IV Univers e 10-23 Piggyback, ity of (PROTONIX) 13:00: 14:12 Q12H, [place] 40 mg in 00 :01 First dose Medic al NaCl 0.9% on [facility] (NS) 100 mL 10/23/20 at MINI-BAG 0800, Until Discontinu ed, 100 mL Sliding 2020- No Subcutaneo Uni vers Scale 10-23 us, TID ity of Insulin - 13:00: 12:58 MEALS+HS, [place] Lispro 00 :53 First dose Medical (HumaLOG) + on [facility] 10/23/20 at Testing 0800, Until Discontinu ed, Routine potassium No 40meq 40 mEq, IV Univers chloride in 10-23 Piggyback, i ty of water (KCL) 10:30: 10:30 ONCE, 1 [place] 40 mEq/100 00 :00 dose, [facility] lizzy mL 40 mEq 10/23/20 at Bran [...] 1,000 mg in 18:45: 21:13 from 919.5 [place] NaCl 0.9% 00 :00 mg = 15 [...] mcg/kg/min ity of 18:20: 12:12 ?61.3 kg [place] 00 :42 (1.839-18. Medical 39 mL/hr, Branch rounded to 1.84-18.39 mL/hr), IV Infusion, TITRATE, Sedation-R ASS score (0 to -1), Starting 4/10/21 at 1320
In itiate infusion at 5 [...] mouth ity of 20 mg 16:24: daily. [place] tablet 17 [facility] Branch traZODone Yes 100mg Take 100 Uni vers 100 mg 4-10 mg by ity of tablet 16:24: mouth at [place] [address] bedtime. Medical Branch insulin NPH 2020- No inject Uni vers hum/reg 10-22 04-10 under the ity of insulin hm 16:24: 00:00 skin. [place] (NOVOLIN 17 :00 Medical 70/30 SC) [place] glucagon Yes 1mg 1 mg, [facility] (GLUCAGEN 10-22 Intramuscu ity of DIAGNOSTIC 16:21: [...] of unit/mL pen 00:00: 05:59 under the [place] injector 00 :00 skin 3 Medical (three) Branch times daily. insulin 2021- No 5U inject 5 Unive rs lispro 100 07-29-16 Units ity of unit/mL pen 00:00: 05:59 under the [place] injector 00 :00 skin 3 Medical (three) Branch times daily. insulin 2021- No 5U inject 5 Unive rs lispro 100 07-29-16 Units ity of unit/mL pen 00:00: 05:59 under the [place] injector 00 :00 skin 3 Medical (three) [...] Units ity of (LANTUS 00:00: under the [place] U-100 00 skin Medical INSULIN) daily. Branch [...] Units ity of (LANTUS 00:00: under the [place] U-100 00 skin Medical INSULIN) daily. Branch [...] the ity of insulin hm 21:24: skin. [place] (NOVO[address] 70/30 [place]) Branch escitalopra 2019-07 Yes 20mg Take 20 mg Univers m oxalate 0-20 by mouth ity of 20 mg 21:24: daily. [place] tablet 44 Medical Branch traZODone 2019-07 Yes 100mg Take 100 Uni vers 100 mg 0-20 mg by ity of tablet 21:24: mouth at [place] [address] bedtime. Medical Branch insulin NPH 2019-07 Yes inject Univ ers hum/reg 0-20 under the ity of insulin hm 21:24: skin. [place] (NOVO[address] 70/30 [place]) Branch escitalopra 2019-07 Yes 20mg Take 20 mg Univers m oxalate 0-20 by mouth ity of 20 mg 21:24: daily. [place] tablet 44 Medical Branch traZODone 2019-07 Yes 100mg Take 100 Uni vers 100 mg 0-20 mg by ity of tablet 21:24: mouth at [place] [address] bedtime. Medical Branch insulin NPH 2019-07 Yes inject Univ ers hum/reg 0-20 under the ity of insulin hm 21:24: skin. [place] (NOVO[address] 70/30 [place]) Branch escitalopra 2019-07 Yes 20mg Take 20 mg Univers m oxalate 0-20 by mouth ity of 20 mg 21:24: daily. [facility] 44 Medical Branch traZODone 2019-07 Yes 100mg Take 100 Uni vers 100 mg 0-20 mg by ity of tablet 21:24: mouth at [place] [address] bedtime. Medical Branch metFORMIN Yes [id number] 500mg Take 1 Univers 500 mg 4-16 tablet by ity of tablet 00:00: mouth 2 [place] (two) Medical times Branch daily with meals. ondansetron 2020-0 Yes [id number] 4mg Take 1 Univers (ZOFRAN 4-16 tablet by ity of ODT) 4 mg 00:00: mouth [place] disintegrat 00 every 8 Medic al ing tablet (eight) Branch hours as needed for Nausea and Vomiting (N/V). metFORMIN 2020-0 Yes [id number] 500mg Take 1 Univers 500 mg 4-16 tablet by ity of tablet 00:00: mouth (two) Medical times Branch daily with meals. ondansetron 2020-0 Yes [id number] 4mg Take 1 Univers (ZOFRAN 4-16 tablet by ity of ODT) 4 mg 00:00: mouth [place] disintegrat 00 every 8 Medic al ing tablet (eight) Branch hours as needed for Nausea and Vomiting (N/V). metFORMIN 2020-0 Yes [id number] 500mg Take 1 Univers 500 mg 4-16 tablet by ity of tablet 00:00: mouth (two) Medical times Branch daily with meals. ondansetron 2020-0 Yes [id number] 4mg Take 1 Univers (ZOFRAN 4-16 tablet by ity of ODT) 4 mg 00:00: mouth [place] disintegrat 00 every 8 Medic al ing tablet (eight) Branch hours as needed for Nausea and Vomiting (N/V). metFORMIN 2020-0 Yes [id number] 500mg Take 1 Univers 500 mg 4-16 tablet by ity of tablet 00:00: mouth (two) Medical times Branch daily with meals. ondansetron 2020-0 Yes [id number] 4mg Take 1 Univers (ZOFRAN 4-16 tablet by ity of ODT) 4 mg 00:00: mouth [place] disintegrat 00 every 8 Medic al ing tablet (eight) Branch hours as needed for Nausea and Vomiting (N/V). metFORMIN 2020-0 Yes [id number] 500mg Take 1 Univers 500 mg 4-16 tablet by ity of tablet 00:00: mouth (two) Medical times Branch daily with meals. ondansetron 2020-0 Yes [id number] 4mg Take 1 Univers (ZOFRAN 4-16 tablet by ity of ODT) 4 mg 00:00: mouth [place] disintegrat 00 every 8 Medic al ing tablet (eight) Branch hours as needed for Nausea and Vomiting (N/V). metFORMIN 2020-0 Yes [id number] 500mg Take 1 Univers 500 mg 4-16 tablet by ity of tablet 00:00: mouth 2 (two) Medical times Branch daily with meals. ondansetron 2020-0 Yes [id number] 4mg Take 1 Univers (ZOFRAN 4-16 tablet by ity of ODT) 4 mg 00:00: mouth [place] disintegrat 00 every 8 Medic al ing tablet (eight) Branch hours as needed for Nausea and Vomiting (N/V). metFORMIN 2020-0 Yes [id number] 500mg Take 1 Univers 500 mg 4-16 tablet by ity of tablet 00:00: mouth (two) Medical times Branch daily with meals. ondansetron 2020-0 Yes [id number] 4mg Take 1 Univers (ZOFRAN 4-16 tablet by ity of ODT) 4 mg 00:00: mouth [place] disintegrat 00 every 8 Medic al ing tablet (eight) Branch hours as needed for Nausea and Vomiting (N/V). metFORMIN 2020-0 Yes [id number] 500mg Take 1 Univers 500 mg 4-16 tablet by ity of tablet 00:00: mouth (two) Medical times Branch daily with meals. ondansetron 2020-0 Yes [id number] 4mg Take 1 Univers (ZOFRAN 4-16 tablet by ity of ODT) 4 mg 00:00: mouth [place] disintegrat 00 every 8 Medic al ing tablet (eight) Branch hours as needed for Nausea and Vomiting (N/V). metFORMIN 2020-0 Yes [id number] 500mg Take 1 Univers 500 mg 4-16 tablet by ity of tablet 00:00: mouth (two) Medical times Branch daily with meals. ondansetron 2020-0 Yes [id number] 4mg Take 1 Univers (ZOFRAN 4-16 tablet by ity of ODT) 4 mg 00:00: mouth [place] disintegrat 00 every 8 Medic al ing tablet (eight) Branch hours as needed for Nausea and Vomiting (N/V). metFORMIN 2020-0 Yes [id number] 500mg Take 1 Univers 500 mg 4-16 tablet by ity of tablet 00:00: mouth 2 (two) Medical times Branch daily with meals. ondansetron 2020-0 Yes [id number] 4mg Take 1 Univers (ZOFRAN 4-16 tablet by ity of ODT) 4 mg 00:00: mouth [place] disintegrat 00 every 8 Medic al ing tablet (eight) Branch hours as needed for Nausea and Vomiting (N/V). metFORMIN 2020-0 Yes [id number] 500mg Take 1 Univers 500 mg 4-16 tablet by ity of tablet 00:00: mouth 2 [place] 00 (two) Medical times Branch daily with meals. ondansetron 2020-0 Yes [id number] 4mg Take 1 Univers (ZOFRAN 4-16 tablet by ity of ODT) 4 mg 00:00: mouth [place] disintegrat 00 every 8 Medic al ing tablet (eight) Branch hours as needed for Nausea and Vomiting (N/V). metFORMIN 2020-0 Yes [id number] 500mg Take 1 Univers 500 mg 4-16 tablet by ity of tablet 00:00: mouth 2 [place] (two) Medical times Branch daily with meals. ondansetron 2020-0 Yes [id number] 4mg Take 1 Univers (ZOFRAN 4-16 tablet by ity of ODT) 4 mg 00:00: mouth [place] disintegrat 00 every 8 Medic al ing tablet (eight) Branch hours as needed for Nausea and Vomiting (N/V). metFORMIN 2020-0 Yes [id number] 500mg Take 1 Univers 500 mg 4-16 tablet by ity of tablet 00:00: mouth 2 (two) Medical times Branch daily with meals. ondansetron 2020-0 Yes [id number] 4mg Take 1 Univers (ZOFRAN 4-16 tablet by ity of ODT) 4 mg 00:00: mouth [place] disintegrat 00 every 8 Medic al ing tablet (eight) Branch hours as needed for Nausea and Vomiting (N/V). metFORMIN 2020-0 Yes [id number] 500mg Take 1 Univers 500 mg 4-16 tablet by ity of tablet 00:00: mouth 2 [place] 00 (two) Medical times Branch daily with meals. ondansetron 2020-0 Yes [id number] 4mg Take 1 Univers (ZOFRAN 4-16 tablet by ity of ODT) 4 mg 00:00: mouth [place] disintegrat 00 every 8 Medic al ing tablet (eight) Branch hours as needed for Nausea and Vomiting (N/V). metFORMIN 2020-0 Yes [id number] 500mg Take 1 Univers 500 mg 4-16 tablet by ity of tablet 00:00: mouth 2 (two) Medical times Branch daily with meals. ondansetron 2020-0 Yes [id number] 4mg Take 1 Univers (ZOFRAN 4-16 tablet by ity of ODT) 4 mg 00:00: mouth [place] disintegrat 00 every 8 Medic al ing tablet (eight) Branch hours as needed for Nausea and Vomiting (N/V). metFORMIN 2020-0 Yes [id number] 500mg Take 1 Univers 500 mg 4-16 tablet by ity of tablet 00:00: mouth 2 [place] (two) Medical times Branch daily with meals. ondansetron 2020-0 Yes [id number] 4mg Take 1 Univers (ZOFRAN 4-16 tablet by ity of ODT) 4 mg 00:00: mouth [place] disintegrat 00 every 8 Medic al ing tablet (eight) Branch hours as needed for Nausea and Vomiting (N/V). metFORMIN 2020-0 Yes [id number] 500mg Take 1 Univers 500 mg 4-16 tablet by ity of tablet 00:00: mouth (two) Medical times Branch daily with meals. ondansetron 2020-0 Yes [id number] 4mg Take 1 Univers (ZOFRAN 4-16 tablet by ity of ODT) 4 mg 00:00: mouth [place] disintegrat 00 every 8 Medic al ing tablet (eight) Branch hours as needed for Nausea and Vomiting (N/V). metFORMIN 2020-0 Yes [id number] 500mg Take 1 Univers 500 mg 4-16 tablet by ity of tablet 00:00: mouth (two) Medical times Branch daily with meals. ondansetron 2020-0 Yes [id number] 4mg Take 1 Univers (ZOFRAN 4-16 tablet by ity of ODT) 4 mg 00:00: mouth [place] disintegrat 00 every 8 Medic al ing tablet (eight) Branch hours as needed for Nausea and Vomiting (N/V). metFORMIN 2020-0 Yes [id number] 500mg Take 1 Univers 500 mg 4-16 tablet by ity of tablet 00:00: mouth 2 [place] (two) Medical times Branch daily with meals. ondansetron 2020-0 Yes [id number] 4mg Take 1 Univers (ZOFRAN 4-16 tablet by ity of ODT) 4 mg 00:00: mouth [place] disintegrat 00 every 8 Medic al ing tablet (eight) Branch hours as needed for Nausea and Vomiting (N/V). metFORMIN 2020-0 Yes [id number] 500mg Take 1 Univers 500 mg 4-16 tablet by ity of tablet 00:00: mouth 2 [place] (two) Medical times Branch daily with meals. ondansetron 2020-0 Yes [id number] 4mg Take 1 Univers (ZOFRAN 4-16 tablet by ity of ODT) 4 mg 00:00: mouth [place] disintegrat 00 every 8 Medic al ing tablet (eight) Branch hours as needed for Nausea and Vomiting (N/V). metFORMIN 2020-0 Yes [id number] 500mg Take 1 Univers 500 mg 4-16 tablet by ity of tablet 00:00: mouth 2 [place] (two) Medical times Branch daily with meals. ondansetron 2020-0 Yes [id number] 4mg Take 1 Univers (ZOFRAN 4-16 tablet by ity of ODT) 4 mg 00:00: mouth [place] disintegrat 00 every 8 Medic al ing tablet (eight) Branch hours as needed for Nausea and Vomiting (N/V). metFORMIN 2020-0 Yes [id number] 500mg Take 1 Univers 500 mg 4-16 tablet by ity of tablet 00:00: mouth (two) Medical times Branch daily with meals. ondansetron 2020-0 Yes [id number] 4mg Take 1 Univers (ZOFRAN 4-16 tablet by ity of ODT) 4 mg 00:00: mouth [place] disintegrat 00 every 8 Medic al ing tablet (eight) Branch hours as needed for Nausea and Vomiting (N/V). metFORMIN 2020-0 Yes [id number] 500mg Take 1 Univers 500 mg 4-16 tablet by ity of tablet 00:00: mouth 2 (two) Medical times Branch daily with meals. ondansetron 2020-0 Yes [id number] 4mg Take 1 Univers (ZOFRAN 4-16 tablet by ity of ODT) 4 mg 00:00: mouth [place] disintegrat 00 every 8 Medic al ing tablet (eight) Branch hours as needed for Nausea and Vomiting (N/V). metFORMIN 2020-0 Yes [id number] 500mg Take 1 Univers 500 mg 4-16 tablet by ity of tablet 00:00: mouth 2 [place] 00 (two) Medical times Branch daily with meals. ondansetron 2020-0 Yes [id number] 4mg Take 1 Univers (ZOFRAN 4-16 tablet by ity of ODT) 4 mg 00:00: mouth [place] disintegrat 00 every 8 Medic al ing tablet (eight) Branch hours as needed for Nausea and Vomiting (N/V). metFORMIN 2020-0 Yes [id number] 500mg Take 1 Univers 500 mg 4-16 tablet by ity of tablet 00:00: mouth (two) Medical times Branch daily with meals. ondansetron 2020-0 Yes [id number] 4mg Take 1 Univers (ZOFRAN 4-16 tablet by ity of ODT) 4 mg 00:00: mouth [place] disintegrat 00 every 8 Medic al ing tablet (eight) Branch hours as needed for Nausea and Vomiting (N/V). metFORMIN 2020-0 Yes [id number] 500mg Take 1 Univers 500 mg 4-16 tablet by ity of tablet 00:00: mouth (two) Medical times Branch daily with meals. ondansetron 2020-0 Yes [id number] 4mg Take 1 Univers (ZOFRAN 4-16 tablet by ity of ODT) 4 mg 00:00: mouth [place] disintegrat 00 every 8 Medic al ing tablet (eight) Branch hours as needed for Nausea and Vomiting (N/V). metFORMIN 2020-0 Yes [id number] 500mg Take 1 Univers 500 mg 4-16 tablet by ity of tablet 00:00: mouth (two) Medical times Branch daily with meals. ondansetron 2020-0 Yes [id number] 4mg Take 1 Univers (ZOFRAN 4-16 tablet by ity of ODT) 4 mg 00:00: mouth [place] disintegrat 00 every 8 Medic al ing tablet (eight) Branch hours as needed for Nausea and Vomiting (N/V). metFORMIN 2020-0 Yes [id number] 500mg Take 1 Univers 500 mg 4-16 tablet by ity of tablet 00:00: mouth 2 (two) Medical times Branch daily with meals. ondansetron 2020-0 Yes [id number] 4mg Take 1 Univers (ZOFRAN 4-16 tablet by ity of ODT) 4 mg 00:00: mouth [place] disintegrat 00 every 8 Medic al ing tablet (eight) Branch hours as needed for Nausea and Vomiting (N/V). metFORMIN Yes [id number] 500mg Take 1 Univers 500 mg 4-16 tablet by ity of tablet 00:00: mouth 2 [place] 00 (two) Medical times Branch daily with meals. ondansetron Yes [id number] 4mg Take 1 Univers (ZOFRAN 4-16 tablet by ity of ODT) 4 mg 00:00: mouth [place] disintegrat 00 every 8 Medic al ing tablet (eight) Branch hours as needed for Nausea and Vomiting (N/V). metFORMIN 2020- No [id number] 500mg Take 1 Univers 500 mg 4-16 04-27 tablet by ity of tablet 00:00: 00:00 mouth 2 [place] 00 :00 (two) Medical times Branch daily with meals. ondansetron 2020- No [id number] 4mg Take 1 Univers (ZOFRAN 4-16 04-27 tablet by ity of ODT) 4 mg 00:00: 00:00 mouth [place] disintegrat 00 :00 every 8 Medic al ing tablet (eight) Branch hours as needed for Nausea and Vomiting (N/V). metFORMIN 2019-2020- No [id number] 500mg Take 1 Univers 500 mg 4-16 04-27 tablet by ity of tablet 00:00: 00:00 mouth 2 [place] 00 :00 (two) Medical times Branch daily with meals. ondansetron 2020- No [id number] 4mg Take 1 Univers (ZOFRAN 4-16 04-27 [...] First dose [place] mg 00 on [facility] 10/27/19 at Branch 2100, Until Discontinu ed, Routine amoxicillin 2020-0 Yes [id number] 500mg Take 1 Univers 500 mg 4-15 capsule by ity of capsule 00:00: mouth 2 (two) Medical times Branch daily. Lactobacill 2020-0 Yes [id number] 1{tbl} Take 1 Univers us 4-15 tablet by ity of Acidophilus 00:00: mouth 2 You as 1 billion 00 (two) Medical cell Tab times Branch daily. traMADol 50 2020-0 Yes [id number] 50mg Take 1 Univers mg tablet 4-15 tablet by ity o f 00:00: mouth [place] 00 every 8 Medical (eight) Branch hours as needed for Pain (scale 7-10). amoxicillin 2020-0 Yes [id number] 500mg Take 1 Univers 500 mg 4-15 capsule by ity of capsule 00:00: mouth 2 (two) Medical times Branch daily. Lactobacill 2020-0 Yes [id number] 1{tbl} Take 1 Univers us 4-15 tablet by ity of Acidophilus 00:00: mouth 2 You as 1 billion 00 (two) Medical cell Tab times Branch daily. traMADol 50 2020-0 Yes [id number] 50mg Take 1 Univers mg tablet 4-15 tablet by ity o f 00:00: mouth [place] 00 every 8 Medical (eight) Branch hours as needed for Pain (scale 7-10). amoxicillin 2020-0 Yes [id number] 500mg Take 1 Univers 500 mg 4-15 capsule by ity of capsule 00:00: mouth 2 00 (two) Medical times Branch daily. Lactobacill 2020-0 Yes [id number] 1{tbl} Take 1 Univers us 4-15 tablet by ity of Acidophilus 00:00: mouth 2 You as 1 billion 00 (two) Medical cell Tab times Branch daily. traMADol 50 2020-0 Yes [id number] 50mg Take 1 Univers mg tablet 4-15 tablet by ity o f 00:00: mouth [place] 00 every 8 Medical (eight) Branch hours as needed for Pain (scale 7-10). amoxicillin 2020-0 Yes [id number] 500mg Take 1 Univers 500 mg 4-15 capsule by ity of capsule 00:00: mouth 2 00 (two) Medical times Branch daily. Lactobacill 2020-0 Yes [id number] 1{tbl} Take 1 Univers us 4-15 tablet by ity of Acidophilus 00:00: mouth 2 You as 1 billion 00 (two) Medical cell Tab times Branch daily. traMADol 50 2020-0 Yes [id number] 50mg Take 1 Univers mg tablet 4-15 tablet by ity o f 00:00: mouth [place] 00 every 8 Medical (eight) Branch hours as needed for Pain (scale 7-10). amoxicillin 2020-0 Yes [id number] 500mg Take 1 [facility] 500 mg 4-15 capsule by ity of capsule 00:00: mouth 2 [place] 00 (two) Medical times Branch daily. Lactobacill 2020-0 Yes [id number] 1{tbl} Take 1 [facility] us 4-15 tablet by ity of Acidophilus 00:00: mouth 2 [place] 1 billion 00 (two) Medical cell Tab times Branch daily. traMADol 50 2020-0 Yes [id number] 50mg Take 1 [facility] mg tablet 4-15 tablet by ity o f 00:00: mouth [place] 00 every 8 Medical (eight) Branch hours as needed for Pain (scale 7-10). amoxicillin 2020-0 Yes [id number] 500mg Take 1 [facility] 500 mg 4-15 capsule by ity of capsule 00:00: mouth 2 [place] 00 (two) Medical times Branch daily. Lactobacill 2020-0 Yes [id number] 1{tbl} Take 1 [facility] us 4-15 tablet by ity of Acidophilus 00:00: mouth 2 [place] 1 billion 00 (two) Medical cell Tab times Branch daily. traMADol 50 2020-0 Yes [id number] 50mg Take 1 [facility] mg tablet 4-15 tablet by ity o f 00:00: mouth [place] 00 every 8 Medical (eight) Branch hours as needed for Pain (scale 7-10). amoxicillin 2020-0 Yes [id number] 500mg Take 1 [facility] 500 mg 4-15 capsule by ity of capsule 00:00: mouth 2 [place] 00 (two) Medical times Branch daily. Lactobacill 2020-0 Yes [id number] 1{tbl} Take 1 [facility] us 4-15 tablet by ity of Acidophilus 00:00: mouth 2 [place] 1 billion 00 (two) Medical cell Tab times Branch daily. traMADol 50 2020-0 Yes [id number] 50mg Take 1 [facility] mg tablet 4-15 tablet by ity o f 00:00: mouth [place] 00 every 8 Medical (eight) Branch hours as needed for Pain (scale 7-10). amoxicillin 2020-0 Yes [id number] 500mg Take 1 [facility] 500 mg 4-15 capsule by ity of capsule 00:00: mouth 2 [place] 00 (two) Medical times Branch daily. Lactobacill 2020-0 Yes [id number] 1{tbl} Take 1 [facility] us 4-15 tablet by ity of Acidophilus 00:00: mouth 2 [place] 1 billion 00 (two) Medical cell Tab times Branch daily. traMADol 50 2020-0 Yes [id number] 50mg Take 1 [facility] mg tablet 4-15 tablet by ity o f 00:00: mouth [place] 00 every 8 Medical (eight) Branch hours as needed for Pain (scale 7-10). amoxicillin 2020-0 Yes [id number] 500mg Take 1 [facility] 500 mg 4-15 capsule by ity of capsule 00:00: mouth 2 00 (two) Medical times Branch daily. Lactobacill 2020-0 Yes [id number] 1{tbl} Take 1 [facility] us 4-15 tablet by ity of Acidophilus 00:00: mouth 2 [place] 1 billion 00 (two) Medical cell Tab times Branch daily. traMADol 50 2020-0 Yes [id number] 50mg Take 1 [facility] mg tablet 4-15 tablet by ity o f 00:00: mouth [place] 00 every 8 Medical (eight) Branch hours as needed for Pain (scale 7-10). amoxicillin 2020-0 Yes [id number] 500mg Take 1 [facility] 500 mg 4-15 capsule by ity of capsule 00:00: mouth 2 00 (two) Medical times Branch daily. Lactobacill 2020-0 Yes [id number] 1{tbl} Take 1 [facility] us 4-15 tablet by ity of Acidophilus 00:00: mouth 2 [place] 1 [place] 00 (two) Medical cell Tab times Branch daily. traMADol 50 2020-0 Yes [id number] 50mg Take 1 [facility] mg tablet 4-15 tablet by ity o f 00:00: mouth [place] 00 every 8 Medical (eight) Branch hours as needed for Pain (scale 7-10). amoxicillin 2020-0 Yes [id number] 500mg Take 1 [facility] 500 mg 4-15 capsule by ity of capsule 00:00: mouth 2 [place] 00 (two) Medical times Branch daily. Lactobacill 2020-0 Yes [id number] 1{tbl} Take 1 [facility] us 4-15 tablet by ity of Acidophilus 00:00: mouth 2 [place] 1 billion 00 (two) Medical cell Tab times Branch daily. traMADol 50 2020-0 Yes [id number] 50mg Take 1 [facility] mg tablet 4-15 tablet by ity o f 00:00: mouth [place] 00 every 8 Medical (eight) Branch hours as needed for Pain (scale 7-10). amoxicillin 2020-0 Yes [id number] 500mg Take 1 [facility] 500 mg 4-15 capsule by ity of capsule 00:00: mouth 2 [place] 00 (two) Medical times Branch daily. Lactobacill 2020-0 Yes [id number] 1{tbl} Take 1 [facility] us 4-15 tablet by ity of Acidophilus 00:00: mouth 2 [place] 1 billion 00 (two) Medical cell Tab times Branch daily. traMADol 50 2020-0 Yes [id number] 50mg Take 1 [facility] mg tablet 4-15 tablet by ity o f 00:00: mouth [place] 00 every 8 Medical (eight) Branch hours as needed for Pain (scale 7-10). amoxicillin 2020-0 Yes [id number] 500mg Take 1 [facility] 500 mg 4-15 capsule by ity of capsule 00:00: mouth 2 [place] 00 (two) Medical times Branch daily. Lactobacill 2020-0 Yes [id number] 1{tbl} Take 1 [facility] us 4-15 tablet by ity of Acidophilus 00:00: mouth 2 [place] 1 billion 00 (two) Medical cell Tab times Branch daily. traMADol 50 2020-0 Yes [id number] 50mg Take 1 [facility] mg tablet 4-15 tablet by ity o f 00:00: mouth [place] 00 every 8 Medical (eight) Branch hours as needed for Pain (scale 7-10). amoxicillin 2020-0 Yes [id number] 500mg Take 1 [facility] 500 mg 4-15 capsule by ity of capsule 00:00: mouth 2 [place] 00 (two) Medical times Branch daily. Lactobacill 2020-0 Yes [id number] 1{tbl} Take 1 [facility] us 4-15 tablet by ity of Acidophilus 00:00: mouth 2 [place] 1 billion 00 (two) Medical cell Tab times Branch daily. traMADol 50 2020-0 Yes [id number] 50mg Take 1 [facility] mg tablet 4-15 tablet by ity o f 00:00: mouth [place] 00 every 8 Medical (eight) Branch hours as needed for Pain (scale 7-10). amoxicillin 2020-0 Yes [id number] 500mg Take 1 [facility] 500 mg 4-15 capsule by ity of capsule 00:00: mouth 2 (two) Medical times Branch daily. Lactobacill 2020-0 Yes [id number] 1{tbl} Take 1 [facility] us 4-15 tablet by ity of Acidophilus 00:00: mouth 2 [place] 1 billion 00 (two) Medical cell Tab times Branch daily. traMADol 50 2020-0 Yes [id number] 50mg Take 1 [facility] mg tablet 4-15 tablet by ity o f 00:00: mouth [place] 00 every 8 Medical (eight) Branch hours as needed for Pain (scale 7-10). amoxicillin 2020-0 Yes [id number] 500mg Take 1 [facility] 500 mg 4-15 capsule by ity of capsule 00:00: mouth 2 (two) Medical times Branch daily. Lactobacill 2020-0 Yes [id number] 1{tbl} Take 1 [facility] us 4-15 tablet by ity of Acidophilus 00:00: mouth 2 [place] 1 [place] 00 (two) Medical cell Tab times Branch daily. traMADol 50 2020-0 Yes [id number] 50mg Take 1 [facility] mg tablet 4-15 tablet by ity o f 00:00: mouth [place] 00 every 8 Medical (eight) Branch hours as needed for Pain (scale 7-10). amoxicillin 2020-0 Yes [id number] 500mg Take 1 [facility] 500 mg 4-15 capsule by ity of capsule 00:00: mouth 2 (two) Medical times Branch daily. Lactobacill 2020-0 Yes [id number] 1{tbl} Take 1 [facility] us 4-15 tablet by ity of Acidophilus 00:00: mouth 2 [place] 1 billion 00 (two) Medical cell Tab times Branch daily. traMADol 50 2020-0 Yes [id number] 50mg Take 1 [facility] mg tablet 4-15 tablet by ity o f 00:00: mouth [place] 00 every 8 Medical (eight) Branch hours as needed for Pain (scale 7-10). amoxicillin 2020-0 Yes [id number] 500mg Take 1 [facility] 500 mg 4-15 capsule by ity of capsule 00:00: mouth 2 00 (two) Medical times Branch daily. Lactobacill 2020-0 Yes [id number] 1{tbl} Take 1 [facility] us 4-15 tablet by ity of Acidophilus 00:00: mouth 2 [place] 1 billion 00 (two) Medical cell Tab times Branch daily. traMADol 50 2020-0 Yes [id number] 50mg Take 1 [facility] mg tablet 4-15 tablet by ity o f 00:00: mouth [place] 00 every 8 Medical (eight) Branch hours as needed for Pain (scale 7-10). amoxicillin 2020-0 Yes [id number] 500mg Take 1 [facility] 500 mg 4-15 capsule by ity of capsule 00:00: mouth 2 [place] 00 (two) Medical times Branch daily. Lactobacill 2020-0 Yes [id number] 1{tbl} Take 1 [facility] us 4-15 tablet by ity of Acidophilus 00:00: mouth 2 [facility] as 1 billion 00 (two) Medical cell Tab times Branch daily. traMADol 50 2020-0 Yes [id number] 50mg Take 1 [facility] mg tablet 4-15 tablet by ity o f 00:00: mouth [place] 00 every 8 Medical (eight) Branch hours as needed for Pain (scale 7-10). amoxicillin 2020-0 Yes [id number] 500mg Take 1 [facility] 500 mg 4-15 capsule by ity of capsule 00:00: mouth 2 [place] 00 (two) Medical times Branch daily. Lactobacill 2020-0 Yes [id number] 1{tbl} Take 1 [facility] us 4-15 tablet by ity of Acidophilus 00:00: mouth 2 [place] as 1 billion 00 (two) Medical cell Tab times Branch daily. traMADol 50 2020-0 Yes [id number] 50mg Take 1 [facility] mg tablet 4-15 tablet by ity o f 00:00: mouth [place] 00 every 8 Medical (eight) Branch hours as needed for Pain (scale 7-10). amoxicillin 2020-0 Yes [id number] 500mg Take 1 [facility] 500 mg 4-15 capsule by ity of capsule 00:00: mouth 2 [place] 00 (two) Medical times Branch daily. Lactobacill 2020-0 Yes [id number] 1{tbl} Take 1 [facility] us 4-15 tablet by ity of Acidophilus 00:00: mouth 2 [facility] as 1 billion 00 (two) Medical cell Tab times Branch daily. traMADol 50 2020-0 Yes [id number] 50mg Take 1 [facility] mg tablet 4-15 tablet by ity o f 00:00: mouth [place] 00 every 8 Medical (eight) Branch hours as needed for Pain (scale 7-10). amoxicillin 2020-0 Yes [id number] 500mg Take 1 [facility] 500 mg 4-15 capsule by ity of capsule 00:00: mouth 2 00 (two) Medical times Branch daily. Lactobacill 2020-0 Yes [id number] 1{tbl} Take 1 [facility] us 4-15 tablet by ity of Acidophilus 00:00: mouth 2 [place] 1 billion 00 (two) Medical cell Tab times Branch daily. traMADol 50 2020-0 Yes [id number] 50mg Take 1 [facility] mg tablet 4-15 tablet by ity o f 00:00: mouth [place] 00 every 8 Medical (eight) Branch hours as needed for Pain (scale 7-10). amoxicillin 2020-0 Yes [id number] 500mg Take 1 [facility] 500 mg 4-15 capsule by ity of capsule 00:00: mouth 2 00 (two) Medical times Branch daily. Lactobacill 2020-0 Yes [id number] 1{tbl} Take 1 [facility] us 4-15 tablet by ity of Acidophilus 00:00: mouth 2 [place] 1 billion 00 (two) Medical cell Tab times Branch daily. traMADol 50 2020-0 Yes [id number] 50mg Take 1 [facility] mg tablet 4-15 tablet by ity o f 00:00: mouth [place] 00 every 8 Medical (eight) Branch hours as needed for Pain (scale 7-10). amoxicillin 2020-0 Yes [id number] 500mg Take 1 [facility] 500 mg 4-15 capsule by ity of capsule 00:00: mouth 2 00 (two) Medical times Branch daily. Lactobacill 2020-0 Yes [id number] 1{tbl} Take 1 [facility] us 4-15 tablet by ity of Acidophilus 00:00: mouth 2 [place] 1 billion 00 (two) Medical cell Tab times Branch daily. traMADol 50 2020-0 Yes [id number] 50mg Take 1 [facility] mg tablet 4-15 tablet by ity o f 00:00: mouth [place] 00 every 8 Medical (eight) Branch hours as needed for Pain (scale 7-10). amoxicillin 2020-0 Yes [id number] 500mg Take 1 [facility] 500 mg 4-15 capsule by ity of capsule 00:00: mouth 2 [place] 00 (two) Medical times Branch daily. Lactobacill 2020-0 Yes [id number] 1{tbl} Take 1 [facility] us 4-15 tablet by ity of Acidophilus 00:00: mouth 2 [facility] as 1 billion 00 (two) Medical cell Tab times Branch daily. traMADol 50 2020-0 Yes [id number] 50mg Take 1 [facility] mg tablet 4-15 tablet by ity o f 00:00: mouth [place] 00 every 8 Medical (eight) Branch hours as needed for Pain (scale 7-10). amoxicillin 2020-0 Yes [id number] 500mg Take 1 [facility] 500 mg 4-15 capsule by ity of capsule 00:00: mouth 2 [place] 00 (two) Medical times Branch daily. Lactobacill 2020-0 Yes [id number] 1{tbl} Take 1 [facility] us 4-15 tablet by ity of Acidophilus 00:00: mouth 2 [facility] as 1 billion 00 (two) Medical cell Tab times Branch daily. traMADol 50 2020-0 Yes [id number] 50mg Take 1 [facility] mg tablet 4-15 tablet by ity o f 00:00: mouth [place] 00 every 8 Medical (eight) Branch hours as needed for Pain (scale 7-10). amoxicillin 2020-0 Yes [id number] 500mg Take 1 [facility] 500 mg 4-15 capsule by ity of capsule 00:00: mouth 2 00 (two) Medical times Branch daily. Lactobacill 2020-0 Yes [id number] 1{tbl} Take 1 [facility] us 4-15 tablet by ity of Acidophilus 00:00: mouth 2 [place] as 1 billion 00 (two) Medical cell Tab times Branch daily. traMADol 50 2020-0 Yes [id number] 50mg Take 1 [facility] mg tablet 4-15 tablet by ity o f 00:00: mouth [place] 00 every 8 Medical (eight) Branch hours as needed for Pain (scale 7-10). amoxicillin 2020-0 Yes [id number] 500mg Take 1 [facility] 500 mg 4-15 capsule by ity of capsule 00:00: mouth 2 [place] 00 (two) Medical times Branch daily. Lactobacill 2020-0 Yes [id number] 1{tbl} Take 1 [facility] us 4-15 tablet by ity of Acidophilus 00:00: mouth 2 [facility] as 1 billion 00 (two) Medical cell Tab times Branch daily. traMADol 50 2020-0 Yes [id number] 50mg Take 1 [facility] mg tablet 4-15 tablet by ity o f 00:00: mouth [place] 00 every 8 Medical (eight) Branch hours as needed for Pain (scale 7-10). amoxicillin 2020-0 Yes [id number] 500mg Take 1 [facility] 500 mg 4-15 capsule by ity of capsule 00:00: mouth 2 [place] 00 (two) Medical times Branch daily. Lactobacill 2020-0 Yes [id number] 1{tbl} Take 1 [facility] us 4-15 tablet by ity of Acidophilus 00:00: mouth 2 [facility] as 1 billion 00 (two) Medical cell Tab times Branch daily. traMADol 50 2020-0 Yes [id number] 50mg Take 1 [facility] mg tablet 4-15 tablet by ity o f 00:00: mouth [place] 00 every 8 Medical (eight) Branch hours as needed for Pain (scale 7-10). amoxicillin 2020-0 Yes [id number] 500mg Take 1 [facility] 500 mg 4-15 capsule by ity of capsule 00:00: mouth 2 [place] 00 (two) Medical times Branch daily. Lactobacill 2020-0 Yes [id number] 1{tbl} Take 1 [facility] us 4-15 tablet by ity of Acidophilus 00:00: mouth 2 [facility] as 1 billion 00 (two) Medical cell Tab times Branch daily. traMADol 50 2020-0 Yes [id number] 50mg Take 1 [facility] mg tablet 4-15 tablet by ity o f 00:00: mouth [place] 00 every 8 Medical (eight) Branch hours as needed for Pain (scale 7-10). amoxicillin 2020-0 Yes [id number] 500mg Take 1 [facility] 500 mg 4-15 capsule by ity of capsule 00:00: mouth 2 [place] 00 (two) Medical times Branch daily. Lactobacill 2020-0 Yes [id number] 1{tbl} Take 1 [facility] us 4-15 tablet by ity of Acidophilus 00:00: mouth 2 You as 1 billion 00 (two) Medical cell Tab times Branch daily. traMADol 50 2020-0 Yes [id number] 50mg Take 1 [facility] mg tablet 4-15 tablet by ity o f 00:00: mouth [place] 00 every 8 Medical (eight) Branch hours as needed for Pain (scale 7-10). traMADol 50 2020-0 Yes [id number] 50mg Take 1 [facility] mg tablet 4-15 tablet by ity o f 00:00: mouth [place] 00 every 8 Medical (eight) Branch hours as needed for Pain (scale 7-10). traMADol 50 2019-2020- No [id number] 50mg Take 1 [facility] mg tablet 4-15 -27 tablet by ity of 00:00: 00:00 mouth [place] 00 :00 every 8 Medical (eight) Branch hours as needed for Pain (scale 7-10). traMADol 50 2019-2020- No [id number] 50mg Take 1 [facility] mg tablet 4-15 -27 tablet by ity of 00:00: 00:00 mouth [place] 00 :00 every 8 Medical (eight) Branch hours as needed for Pain (scale 7-10). amoxicillin 2019-2020- No [id number] 500mg Take 1 [facility] 500 mg 4-15 04-10 capsule by ity of capsule 00:00: 00:00 mouth 2 [place] 00 :00 (two) Medical times Branch daily. amoxicillin 2019-2020- No [id number] 500mg Take 1 [facility] 500 mg 4-15 04-10 capsule by ity of capsule 00:00: 00:00 mouth 2 [place] 00 :00 (two) Medical times Branch daily. amoxicillin 2019-0 2020- No [id number] 500mg Take 1 [facility] 500 mg 4-15 04-10 capsule by ity of capsule 00:00: 00:00 mouth 2 [place] 00 :00 (two) Medical times Branch daily. Lactobacill 2019-2020- No [id number] 1{tbl} Take 1 [facility] us 4-15 04-10 tablet by ity of Acidophilus 00:00: 00:00 mouth 2 [place] 1 billion 00 :00 (two) Medical cell Tab times Branch daily. metoclopram 2019-0 Yes 5mg 5 mg, Slow [facility] bj HCl 4-14 IV Push, ity of (REGLAN) 23:14: Q6HPRN, [place] injection 5 57 Starting Medi lizzy mg [facility] 10/27/19 at 181, Until Discontinu ed, Routine, Headache traMADol 2019-0 Yes 50mg 50 mg, Univers (ULTRAM) 4-14 Oral, ity of tablet 50 23:14: Q4HPRN, [place] mg 45 Starting Medical [facility] Branch 10/27/19 at 1814, Until Discontinu ed, Routine, Pain (scale 4-6), Headache acetaminoph 2020-0 Yes 650mg 650 mg, Un michael en 4-14 Oral, ity of (TYLENOL) 18:40: Q4HPRN, [place] tablet 650 56 Starting Medic al mg [facility] 10/27/19 at 1340, Until Discontinu ed, Routine, Pain (scale 1-3) furosemide 2020-0 Yes 40mg 40 mg, Unive rs (LASIX) 4-14 Oral, ity of tablet 40 14:00: QAM+PM, [place] mg 00 First dose Medical on [facility] 10/27/19 at 0900, Until Discontinu ed, Routine metoprolol 2020-0 Yes 50mg 50 mg, Unive rs succinate 4-14 Oral, ity of XL (TOPROL 14:00: DAILY, [place] XL) tablet 00 First dose Med ical 50 mg on [facility] 10/27/19 at 0900, Until Discontinu ed, Routine clopidogreL 2020-0 Yes 75mg 75 mg, Univ ers (PLAVIX) 4-14 Oral, ity of tablet 75 14:00: DAILY, [place] mg 00 First dose Medical on [facility] 10/27/19 at 0900, Until Discontinu ed, Routine enoxaparin 2020-0 Yes 30mg 30 mg, Unive rs (LOVENOX) 4-14 Subcutaneo ity of injection 14:00: us, DAILY, [place] 30 mg 00 First dose Medical on [facility] 10/27/19 at 0900, Until Discontinu ed, Routine docusate 2020-0 Yes 100mg 100 mg, Unive rs (COLACE) 4-14 Oral, BID, ity o f capsule 100 13:00: First dose [place] mg 00 on [facility] 10/27/19 at Branch 0800, Until Discontinu ed, Routine Sliding 2020-0 Yes Subcutaneo Univ ers Scale 4-14 us, TID ity of Insulin - 13:00: MEALS+HS, You as [place]art 00 First dose Medical (NOVOLOG) + on [facility] 10/27/19 at Testing 0800, Until Discontinu ed, Routine aspirin 2020-0 Yes 81mg 81 mg, [facility] chewable 4-14 Oral, QAM ity of tablet 81 09:15: WITH [place] mg 00 BREAKFAST, Medical First dose Branch on 10/27/19 at 0415, Until Discontinu ed, Routine [...] IV ity of (D50W) 08:53: Push, PRN, [place] injection 48 Starting Medica l 25 mL [...] Mon Med ical ing tablet 10/26/19 at [facility] 8 mg 2200, KATHY sodium 2020-0 2020- No [id number] 15g Take 60 mL [facility] polystyrene 10-2516 by mouth ity of sulfonate 00:00: 04:59 daily for [place] 15 gram/60 00 :00 2 doses. Medic al mL Branch suspension sodium 2020-0 2020- No [id number] 15g Take 60 mL [facility] polystyrene 4-13 04-15 by mouth ity of sulfonate 00:00: 00:00 daily for [place] 15 gram/60 00 :00 2 doses. Medic al mL Branch suspension metoprolol 2020-0 2020- No 50mg Take 50 mg [facility] succinate 10-18-06 by mouth ity o f 50 mg CSpX 21:11: 00:00 daily. [facility] 36 :00 Medical Branch spironolact 2020-0 2020- No 25mg Take 25 mg Univers one 25 mg 10-18- by mouth ity o f tablet 21:11: 00:00 daily. [place] 36 :00 Medical Branch metoprolol 2020-0 2020- No 50mg Take 50 mg [facility] succinate 10-18-06 by mouth ity o f 50 mg CSpX 21:11: 00:00 daily. [facility] 36 :00 Medical Branch spironolact 2020-0 2020- No 25mg Take 25 mg [facility] one 25 mg 10-18-06 by mouth ity o f tablet 21:11: 00:00 daily. [place] 36 :00 Medical Branch clopidogreL 2020-0 Yes [...] by ity of tablet 00:00: mouth at [place] 00 bedtime. Medical Branch metoprolol 2020-0 Yes [...] at [place] 00 bedtime. Medical Branch metoprolol 2019-0 Yes 50mg Take 1 Unive rs succinate 4-06 tablet by ity o f XL 50 mg 24 00:00: mouth [place] hr tablet 00 daily. Medical Branch clopidogreL 2019-2020- No 75mg Take 1 Uni vers 75 mg 10-18 tablet by ity of tablet 00:00: 00:00 mouth [place] 00 :00 daily. Medical Branch furosemide 2019-0 2020- No 40mg Take 1 Univ ers 40 mg 10-18 tablet by ity of tablet 00:00: 00:00 mouth [place] 00 :00 every Medical morning Branch and evening. atorvastati 2019-2020- No 80mg Take 1 Uni vers n 80 mg 10-18 tablet by ity of tablet 00:00: 00:00 mouth at [place] 00 :00 bedtime. Medical Branch metoprolol 2019-0 2020- No 50mg Take 1 Univ ers succinate 10-18 tablet by ity of XL 50 mg 24 00:00: 00:00 mouth [place] hr tablet 00 :00 daily. Medical Branch clopidogreL 2019-0 2020- No 75mg Take 1 [facility] vers 75 mg 10-18 tablet by ity of tablet 00:00: 00:00 mouth [place] 00 :00 daily. Medical Branch furosemide 2019-2020- No 40mg Take 1 Univ ers 40 mg 10-18 tablet by ity of tablet 00:00: 00:00 mouth [place] 00 :00 every Medical morning Branch and evening. atorvastati 2019-0 2020- No 80mg Take 1 [facility] vers n 80 mg 10-18 tablet by ity of tablet 00:00: 00:00 mouth at [place] 00 :00 bedtime. Medical Branch metoprolol 2019-0 2020- No 50mg Take 1 Univ ers succinate 10-1827 tablet by ity of XL 50 mg 24 00:00: 00:00 mouth [place] hr tablet 00 :00 daily. Medical Branch spironolact 2019-0 2019- No 25mg Take 1 Uni vers one 25 mg 10-18-15 tablet by ity of tablet 00:00: 00:00 mouth [place] 00 :00 daily. Medical Branch metoprolol 2020-0 2020- No 50mg Take 50 mg [facility] succinate 10-18 by mouth ity o f 50 mg CSpX 00:00: 00:00 daily. [place] 00 :00 [facility] metoprolol 2020-0 2020- No 50mg Take 50 mg [facility] succinate 10-18- by mouth ity o f 50 mg CSpX 00:00: 00:00 daily. [place] 00 :00 [facility] metoprolol 2020-0 Yes 50mg Take 50 mg U nivers succinate 3-19 by mouth ity of 50 mg CSpX 23:09: daily. [address] spironolact 2020-0 Yes 25mg Take 25 mg [facility] one 25 mg 3-19 by mouth ity of tablet 23:09: daily. [address] insulin NPH 2020-0 Yes 18U inject 18 U nivers human 3-19 Units ity of isophane 23:09: under the [place] (HUMULIN N 16 skin 2 Medical NPH INSULIN (two) Branch KWIKPEN SC) times daily. metoprolol 2020-0 Yes 50mg Take 50 mg U nivers succinate 3-19 by mouth ity of 50 mg CSpX 23:09: daily. [address] spironolact 2020-0 Yes 25mg Take 25 mg [facility] one 25 mg 3-19 by mouth ity of tablet 23:09: daily. [address] insulin NPH 2020-0 Yes 18U inject [...] 3-19 ity of OINT) 2 % 19:00: [place] skin 00 Medical ointment Branch sulfamethox 2020-0 2020- No 1{tbl} Take 1 U nivers azole-trime 3-19 03-19 tablet by it y of oprim 16:32: 00:00 mouth 2 [place] (BACTRIM 29 :00 (two) Medical DS) 800-160 times Branch mg per daily. tablet amoxicillin 2020-0 Yes 1{tbl} 1 tablet, Univers -clavulanat 3-19 Oral, ity of e 15:30: Q12H, [place] (AUGMENTIN) 00 First dose Me dical 875-125 mg on Sat per tablet 10/01/19 at 1 tablet 1030, Until Discontinu ed, Routine
Reason for Anti-Infec tive: Empiric Therapy for Suspected Infection< br>Empiric Therapy Site: Respirator y
Durat ion of therapy: 72 hours zolpidem 2020-0 Yes 5mg 5 mg, Univers (AMBIEN) 3-19 Oral, ity of tablet 5 mg 02:19: QHSPRN, You as 25 Starting Medical Wed Branch 09/30/19 at 2119, Until Discontinu ed, Routine, Insomnia aspirin 2020-0 Yes 81mg 81 mg, Univers chewable 3-19 Oral, QHS, ity o f tablet 81 02:00: First dose [place] mg 00 on Sat Medical 09/30/19 at Branch 2100, Until Discontinu ed, Routine silver 2020-0 Yes Topical, Univers sulfADIAZIN 3-19 BID, First it y of E 01:00: dose on [place] (SILVADENE) 00 Wed Medical 1 % cream 09/30/19 at [facility] 2000, Until Discontinu ed, Routine ferrous 2020-0 Yes [id number] 325mg Take 1 Un michael sulfate 3-19 tablet by ity of (FERROUSUL) 00:00: mouth 3 You as 325 mg (65 00 (three) Medica l mg iron) times Branch tablet daily with meals. ferrous 2020-0 Yes [id number] 325mg Take 1 Un michael sulfate 3-19 tablet by ity of (FERROUSUL) 00:00: mouth 3 [place] as 325 mg (65 00 (three) Medica l mg iron) times Branch tablet daily with meals. ferrous 2020-0 Yes [id number] 325mg Take 1 Un michael sulfate 3-19 tablet by ity of (FERROUSUL) 00:00: mouth 3 [place] 325 mg (65 00 (three) Medica l mg iron) times Branch tablet daily with meals. ferrous 2020-0 Yes [id number] 325mg Take 1 Un michael sulfate 3-19 tablet by ity of (FERROUSUL) 00:00: mouth 3 [place] 325 mg (65 00 (three) Medica l mg iron) times Branch tablet daily with meals. ferrous 2020-0 Yes [id number] 325mg Take 1 Un michael sulfate 3-19 tablet by ity of (FERROUSUL) 00:00: mouth 3 [place] 325 mg (65 00 (three) Medica l mg iron) times Branch tablet daily with meals. ferrous 2020-0 Yes [id number] 325mg Take 1 Un michael sulfate 3-19 tablet by ity of (FERROUSUL) 00:00: mouth 3 [place] 325 mg (65 00 (three) Medica l mg iron) times Branch tablet daily with meals. ferrous 2020-0 Yes [id number] 325mg Take 1 Un michael sulfate 3-19 tablet by ity of (FERROUSUL) 00:00: mouth 3 [place] 325 mg (65 00 (three) Medica l mg iron) times Branch tablet daily with meals. ferrous 2020-0 Yes [id number] 325mg Take 1 Un michael sulfate 3-19 tablet by ity of (FERROUSUL) 00:00: mouth 3 [place] 325 mg (65 00 (three) Medica l mg iron) times Branch tablet daily with meals. ferrous 2020-0 Yes [id number] 325mg Take 1 Un michael sulfate 3-19 tablet by ity of (FERROUSUL) 00:00: mouth 3 [place] 325 mg (65 00 (three) Medica l mg iron) times Branch tablet daily with meals. ferrous 2020-0 Yes [id number] 325mg Take 1 Un michael sulfate 3-19 tablet by ity of (FERROUSUL) 00:00: mouth 3 [place] 325 mg (65 00 (three) Medica l mg iron) times Branch tablet daily with meals. ferrous 2020-0 Yes [id number] 325mg Take 1 Un michael sulfate 3-19 tablet by ity of (FERROUSUL) 00:00: mouth 3 [place] 325 mg (65 00 (three) Medica l mg iron) times Branch tablet daily with meals. ferrous 2020-0 Yes [id number] 325mg Take 1 [facility] sulfate 3-19 tablet by ity of (FERROUSUL) 00:00: mouth 3 [place] 325 mg (65 00 (three) Medica l mg iron) times Branch tablet daily with meals. ferrous 2020-0 Yes [id number] 325mg Take 1 [facility] sulfate 3-19 tablet by ity of (FERROUSUL) 00:00: mouth 3 [place] 325 mg (65 00 (three) Medica l mg iron) times Branch tablet daily with meals. ferrous 2020-0 Yes [id number] 325mg Take 1 [facility] sulfate 3-19 tablet by ity of (FERROUSUL) 00:00: mouth 3 [place] 325 mg (65 00 (three) Medica l mg iron) times Branch tablet daily with meals. ferrous 2020-0 Yes [id number] 325mg Take 1 [facility] sulfate 3-19 tablet by ity of (FERROUSUL) 00:00: mouth 3 [place] 325 mg (65 00 (three) Medica l mg iron) times Branch tablet daily with meals. ferrous 2020-0 Yes [id number] 325mg Take 1 [facility] sulfate 3-19 tablet by ity of (FERROUSUL) 00:00: mouth 3 [place] 325 mg (65 00 (three) Medica l mg iron) times Branch tablet daily with meals. ferrous 2020-0 Yes [id number] 325mg Take 1 [facility] sulfate 3-19 tablet by ity of (FERROUSUL) 00:00: mouth 3 [place] 325 mg (65 00 (three) Medica l mg iron) times Branch tablet daily with meals. ferrous 2020-0 Yes [id number] 325mg Take 1 [facility] sulfate 3-19 tablet by ity of (FERROUSUL) 00:00: mouth 3 [place] 325 mg (65 00 (three) Medica l mg iron) times Branch tablet daily with meals. ferrous 2020-0 Yes [id number] 325mg Take 1 [facility] sulfate 3-19 tablet by ity of (FERROUSUL) 00:00: mouth 3 [place] 325 mg (65 00 (three) Medica l mg iron) times Branch tablet daily with meals. ferrous 2020-0 Yes [id number] 325mg Take 1 [facility] [place] sulfate 3-19 tablet by ity of (FERROUSUL) 00:00: mouth 3 [place] 325 mg (65 00 (three) Medica l mg iron) times Branch tablet daily with meals. ferrous 2020-0 Yes [id number] 325mg Take 1 [facility] [place] sulfate 3-19 tablet by ity of (FERROUSUL) 00:00: mouth 3 [place] 325 mg (65 00 (three) Medica l mg iron) times Branch tablet daily with meals. ferrous 2020-0 Yes [id number] 325mg Take 1 [facility] [place] sulfate 3-19 tablet by ity of (FERROUSUL) 00:00: mouth 3 [place] 325 mg (65 00 (three) Medica l mg iron) times Branch tablet daily with meals. ferrous 2020-0 Yes [id number] 325mg Take 1 [facility] [place] sulfate 3-19 tablet by ity of (FERROUSUL) 00:00: mouth 3 [place] 325 mg (65 00 (three) Medica l mg iron) times Branch tablet daily with meals. ferrous 2020-0 Yes [id number] 325mg Take 1 [facility] [place] sulfate 3-19 tablet by ity of (FERROUSUL) 00:00: mouth 3 [place] 325 mg (65 00 (three) Medica l mg iron) times Branch tablet daily with meals. ferrous 2020-0 Yes [id number] 325mg Take 1 [facility] [place] sulfate 3-19 tablet by ity of (FERROUSUL) 00:00: mouth 3 [place] 325 mg (65 00 (three) Medica l mg iron) times Branch tablet daily with meals. ferrous 2020-0 Yes [id number] 325mg Take 1 [facility] [place] sulfate 3-19 tablet by ity of (FERROUSUL) 00:00: mouth 3 [place] 325 mg (65 00 (three) Medica l mg iron) times Branch tablet daily with meals. ferrous 2020-0 Yes [id number] 325mg Take 1 [facility] [place] sulfate 3-19 tablet by ity of (FERROUSUL) 00:00: mouth 3 [place] 325 mg (65 00 (three) Medica l mg iron) times Branch tablet daily with meals. ferrous 2020-0 Yes [id number] 325mg Take 1 [facility] [place] sulfate 3-19 tablet by ity of (FERROUSUL) 00:00: mouth 3 [place] 325 mg (65 00 (three) Medica l mg iron) times Branch tablet daily with meals. ferrous 2020-0 Yes [id number] 325mg Take 1 [facility] [place] sulfate 3-19 tablet by ity of (FERROUSUL) 00:00: mouth 3 [place] 325 mg (65 00 (three) Medica l mg iron) times Branch tablet daily with meals. ferrous 2020-0 Yes [id number] 325mg Take 1 [facility] [place] sulfate 3-19 tablet by ity of (FERROUSUL) 00:00: mouth 3 [place] 325 mg (65 00 (three) Medica l mg iron) times Branch tablet daily with meals. ferrous 2020-0 Yes [id number] 325mg Take 1 [facility] sulfate 3-19 tablet by ity of (FERROUSUL) 00:00: mouth 3 [place] 325 mg (65 00 (three) Medica l mg iron) times Branch tablet daily with meals. ferrous 2020-0 Yes [id number] 325mg Take 1 [facility] sulfate 3-19 tablet by ity of (FERROUSUL) 00:00: mouth 3 [place] 325 mg (65 00 (three) Medica l mg iron) times Branch tablet daily with meals. ferrous 2020-0 Yes [id number] 325mg Take 1 [facility] [place] sulfate 3-19 tablet by ity of (FERROUSUL) 00:00: mouth 3 [place] 325 mg (65 00 (three) Medica l mg iron) times Branch tablet daily with meals. ferrous 2020-0 Yes [id number] 325mg Take 1 [facility] [place] sulfate 3-19 tablet by ity of (FERROUSUL) 00:00: mouth 3 [place] 325 mg (65 00 (three) Medica l mg iron) times Branch tablet daily with meals. ferrous 2020-0 Yes [id number] 325mg Take 1 [facility] [place] sulfate 3-19 tablet by ity of (FERROUSUL) 00:00: mouth 3 [place] 325 mg (65 00 (three) Medica l mg iron) times Branch tablet daily with meals. ferrous 2020-0 Yes [id number] 325mg Take 1 [facility] [place] sulfate 3-19 tablet by ity of (FERROUSUL) 00:00: mouth 3 [place] 325 mg (65 00 (three) Medica l mg iron) times Branch tablet daily with meals. ferrous 2020-0 Yes [id number] 325mg Take 1 [facility] [place] sulfate 3-19 tablet by ity of (FERROUSUL) 00:00: mouth 3 [place] 325 mg (65 00 (three) Medica l mg iron) times Branch tablet daily with meals. ferrous 2020-0 Yes [id number] 325mg Take 1 [facility] [place] sulfate 3-19 tablet by ity of (FERROUSUL) 00:00: mouth 3 [place] 325 mg (65 00 (three) Medica l mg iron) times Branch tablet daily with meals. ferrous 2020-0 Yes [id number] 325mg Take 1 [facility] [place] sulfate 3-19 tablet by ity of (FERROUSUL) 00:00: mouth 3 [place] 325 mg (65 00 (three) Medica l mg iron) times Branch tablet daily with meals. ferrous 2020-0 Yes [id number] 325mg Take 1 [facility] [place] sulfate 3-19 tablet by ity of (FERROUSUL) 00:00: mouth 3 [place] 325 mg (65 00 (three) Medica l mg iron) times Branch tablet daily with meals. ferrous 2020- No [id number] 325mg Take 1 U nivers sulfate 3-19 04-27 tablet by ity of (FERROUSUL) 00:00: 00:00 mouth 3 [place] 325 mg (65 00 :00 (three) Medica l mg iron) times Branch tablet daily with meals. ferrous 2020- No [id number] 325mg Take 1 U nivers sulfate 3-19 [...] Oral, ity of XL (TOPROL 14:00: DAILY, [place] XL) tablet 00 First dose Med ical 50 mg on Sat Branch 09/30/19 at 0900, Until Discontinu ed insulin NPH 2020-0 Yes 15U 15 Units, U nivers (HUMULIN N) 3-18 Subcutaneo it y of injection 14:00: , [place] 15 Units 00 QAM+PM, Medical First dose [...]
Facu lty member approving Restricted medication : ALBNIKA WHITEAR Sliding 2020-0 Yes Subcutaneo Univ ers Scale [...] 02:30: First dose [place] 00 on Sat [facility] 09/29/19 at Branch 2130, Until Discontinu ed, Routine atorvastati 2020-0 Yes 40mg 40 mg, Univ ers n (LIPITOR) 3-18 Oral, QHS, it y of tablet 40 02:00: First dose [place] mg 00 on Sat [facility] 09/29/19 at Branch 2100, Until Discontinu ed, Routine metoprolol 2020-0 Yes 50mg Take 50 mg U nivers succinate 3-18 by mouth ity of 50 mg CSpX 01:49: daily. [place] [address] Medical Branch spironolact 2020-0 Yes 25mg Take 25 mg Univers one 25 mg 3-18 by mouth ity of tablet 01:49: daily. [place] [address] Medical Branch insulin NPH 2020-0 Yes 18U inject 18 U nivers human 3-18 Units ity of isophane 01:49: [place] (HUMULIN N 18 skin 2 Medical NPH INSULIN (two) Branch KWIKPEN SC) times daily. sulfamethox 2020-0 Yes 1{tbl} Take 1 Un [facility]ichael azole-trime 3-18 tablet by ity of thoprim 01:49: mouth 2 [place] (BACTRIM 18 (two) Medical DS) 800-160 times Branch mg per daily. tablet metoprolol 2020-0 Yes 50mg Take 50 mg U nivers succinate 3-18 by mouth ity of 50 mg CSpX 01:49: daily. [place] [address] Medical Branch spironolact 2020-0 Yes 25mg Take 25 mg [facility] one 25 mg 3-18 by mouth ity of tablet 01:49: daily. [place] [address] Medical Branch insulin NPH 2020-0 Yes 18U inject 18 U nivers human 3-18 Units ity of isophane 01:49: [place] (HUMULIN N 18 skin 2 Medical NPH INSULIN (two) Branch KWIKPEN SC) times daily. ondansetron 2020-0 Yes 4mg 4 mg, Slow Univers (ZOFRAN 3-18 IV Push, ity of (PF)) 01:47: Q6HPRN, [place] injection 4 45 Starting Medi lizzy mg [...] 3-18 Oral, ity of (TYLENOL) 01:47: Q6HPRN, [place] tablet 650 36 Starting Medic al mg [facility] 09/29/19 at 2046, Until Discontinu ed, Routine, Pain (scale 1-3) nitroglycer 2020-0 Yes .4mg 0.4 mg, Uni vers in 3-18 Sublingual ity of (NITROSTAT) 01:46: , Q5MIN You as sublingual 06 PRN, Medical tablet 0.4 Starting Branc h mg [facility] 09/29/19 at 2045, Until Discontinu ed, Routine, Chest pain furosemide 2020-0 2020- No 40mg 40 mg, IV U nivers (LASIX) 18 03-17 Push, ity of injection 00:00: 23:22 ONCE, 1 [place] 40 mg 00 :00 dose, [facility] 09/29/19 at [place] [address], KATHY Sulfamethox Sulfamethox 2020-0 Yes M.A. TAKE 1 Univers azole-Trime azole-Trime 3-17 TABLET ity of thoprim thoprim 00:00: TWICE [place] 800-160 MG 800-160 MG 00 DAILY. for Physici Oral Tablet Oral Tablet 7 days ans metoprolol 2020-0 Yes 50mg Take 50 mg U nivers succinate 3-16 by mouth ity of 50 mg CSpX 18:06: daily. [address] spironolact 2020-0 Yes 25mg Take 25 mg Univers one 25 mg 3-16 by mouth ity of tablet 18:06: daily. [address] insulin NPH 2020-0 Yes 18U inject 18 U nivers human 3-16 Units ity of isophane 18:06: [place] (HUMULIN N 02 skin 2 Medical NPH INSULIN (two) Branch KWIKPEN SC) times daily. metoprolol 2020-0 Yes 50mg Take 50 mg U nivers succinate 3-16 by mouth ity of 50 mg CSpX 18:06: daily. [address] spironolact 2020-0 Yes 25mg Take 25 mg [facility] one 25 mg 3-16 by mouth ity of tablet 18:06: daily. [address] insulin NPH 2020-0 Yes 18U inject 18 U nivers human 3-16 Units ity of isophane 18:06: [place] (HUMULIN N 02 skin 2 Medical NPH INSULIN (two) Branch KWIKPEN SC) times daily. sulfamethox 2020-0 2020- No [id number] 1{tbl} Take 1 Univers azole-trime 09-2017 tablet by it y of thoprim 00:00: 04:59 mouth 2 [place] (BACTRIM 00 :00 (two) Medical DS) 800-160 times Branch mg per daily for tablet 7 days. sulfamethox 2020-0 2020- No [id number] 1{tbl} Take 1 Univers azole-trime 09-20 tablet by it y of thoprim 00:00: 04:59 mouth 2 [place] (BACTRIM 00 :00 (two) Medical DS) 800-160 times Branch mg per daily for tablet 7 days. sulfamethox 2020-0 2020- No [id number] 1{tbl} Take 1 Univers azole-trime 09-20 tablet by it y of thoprim 00:00: 04:59 mouth 2 [place] (BACTRIM 00 :00 (two) Medical DS) 800-160 [...] ty of nus 02:15: 02:15 lar, ONCE, [place] (ADACEL) 00 :00 1 dose, Medical injection 09/18/19 Bran ch 0.5 mL at 2014, Routine ondansetron 2020-0 Yes [id number] 4mg Take 1 Univers 4 mg 3-06 tablet by ity of disintegrat 00:00: mouth [place] ing tablet 00 every 8 Medica l (eight) Branch hours as needed for Nausea and Vomiting (N/V) for up to 15 doses. ondansetron 2020-0 Yes [id number] 4mg Take 1 Univers 4 mg 3-06 tablet by ity of disintegrat 00:00: mouth [place] ing tablet 00 every 8 Medica l (eight) Branch hours as needed for Nausea and Vomiting (N/V) for up to 15 doses. ondansetron 2020-0 Yes [id number] 4mg Take 1 Univers 4 mg 3-06 tablet by ity of disintegrat 00:00: mouth [place] ing tablet 00 every 8 Medica l (eight) Branch hours as needed for Nausea and Vomiting (N/V) for up to 15 doses. ondansetron 2020-0 Yes [id number] 4mg Take 1 Univers 4 mg 3-06 tablet by ity of disintegrat 00:00: mouth [place] ing tablet 00 every 8 Medica l (eight) Branch hours as needed for Nausea and Vomiting (N/V) for up to 15 doses. ondansetron 2020-0 Yes [id number] 4mg Take 1 Univers 4 mg 3-06 tablet by ity of disintegrat 00:00: mouth [place] ing tablet 00 every 8 Medica l (eight) Branch hours as needed for Nausea and Vomiting (N/V) for up to 15 doses. ondansetron 2020-0 Yes [id number] 4mg Take 1 Univers 4 mg 3-06 tablet by ity of disintegrat 00:00: mouth [place] ing tablet 00 every 8 Medica l (eight) Branch hours as needed for Nausea and Vomiting (N/V) for up to 15 doses. ondansetron 2020-0 Yes [id number] 4mg Take 1 Univers 4 mg 3-06 tablet by ity of disintegrat 00:00: mouth [place] ing tablet 00 every 8 Medica l (eight) Branch hours as needed for Nausea and Vomiting (N/V) for up to 15 doses. ondansetron 2020-0 Yes [id number] 4mg Take 1 Univers 4 mg 3-06 tablet by ity of disintegrat 00:00: mouth [place] ing tablet 00 every 8 Medica l (eight) Branch hours as needed for Nausea and Vomiting (N/V) for up to 15 doses. ondansetron 2020-0 Yes [id number] 4mg Take 1 Univers 4 mg 3-06 tablet by ity of disintegrat 00:00: mouth [place] ing tablet 00 every 8 Medica l (eight) Branch hours as needed for Nausea and Vomiting (N/V) for up to 15 doses. ondansetron 2020-0 Yes [id number] 4mg Take 1 Univers 4 mg 3-06 tablet by ity of disintegrat 00:00: mouth [place] ing tablet 00 every 8 Medica l (eight) Branch hours as needed for Nausea and Vomiting (N/V) for up to 15 doses. ondansetron 2020-0 Yes [id number] 4mg Take 1 Univers 4 mg 3-06 tablet by ity of disintegrat 00:00: mouth [place] ing tablet 00 every 8 Medica l (eight) Branch hours as needed for Nausea and Vomiting (N/V) for up to 15 doses. ondansetron 2020-0 Yes [id number] 4mg Take 1 Univers 4 mg 3-06 tablet by ity of disintegrat 00:00: mouth [place] ing tablet 00 every 8 Medica l (eight) Branch hours as needed for Nausea and Vomiting (N/V) for up to 15 doses. ondansetron 2020-0 Yes [id number] 4mg Take 1 Univers 4 mg 3-06 tablet by ity of disintegrat 00:00: mouth [place] ing tablet 00 every 8 Medica l (eight) Branch hours as needed for Nausea and Vomiting (N/V) for up to 15 doses. ondansetron 2020-0 Yes [id number] 4mg Take 1 Univers 4 mg 3-06 tablet by ity of disintegrat 00:00: mouth [place] ing tablet 00 every 8 Medica l (eight) Branch hours as needed for Nausea and Vomiting (N/V) for up to 15 doses. ondansetron 2020-0 Yes [id number] 4mg Take 1 Univers 4 mg 3-06 tablet by ity of disintegrat 00:00: mouth [place] ing tablet 00 every 8 Medica l (eight) Branch hours as needed for Nausea and Vomiting (N/V) for up to 15 doses. ondansetron 2020-0 Yes [id number] 4mg Take 1 Univers 4 mg 3-06 tablet by ity of disintegrat 00:00: mouth [place] ing tablet 00 every 8 Medica l (eight) Branch hours as needed for Nausea and Vomiting (N/V) for up to 15 doses. ondansetron 2020-0 Yes [id number] 4mg Take 1 Univers 4 mg 3-06 tablet by ity of disintegrat 00:00: mouth [place] ing tablet 00 every 8 Medica l (eight) Branch hours as needed for Nausea and Vomiting (N/V) for up to 15 doses. ondansetron 2020-0 Yes [id number] 4mg Take 1 Univers 4 mg 3-06 tablet by ity of disintegrat 00:00: mouth [place] ing tablet 00 every 8 Medica l (eight) Branch hours as needed for Nausea and Vomiting (N/V) for up to 15 doses. ondansetron 2020-0 Yes [id number] 4mg Take 1 Univers 4 mg 3-06 tablet by ity of disintegrat 00:00: mouth [place] ing tablet 00 every 8 Medica l (eight) Branch hours as needed for Nausea and Vomiting (N/V) for up to 15 doses. ondansetron 2020-0 Yes [id number] 4mg Take 1 Univers 4 mg 3-06 tablet by ity of disintegrat 00:00: mouth [place] ing tablet 00 every 8 Medica l (eight) Branch hours as needed for Nausea and Vomiting (N/V) for up to 15 doses. ondansetron 2020-0 Yes [id number] 4mg Take 1 Univers 4 mg 3-06 tablet by ity of disintegrat 00:00: mouth [place] ing tablet 00 every 8 Medica l (eight) Branch hours as needed for Nausea and Vomiting (N/V) for up to 15 doses. ondansetron 2020-0 Yes [id number] 4mg Take 1 Univers 4 mg 3-06 tablet by ity of disintegrat 00:00: mouth [place] ing tablet 00 every 8 Medica l (eight) Branch hours as needed for Nausea and Vomiting (N/V) for up to 15 doses. ondansetron 2020-0 Yes [id number] 4mg Take 1 Univers 4 mg 3-06 tablet by ity of disintegrat 00:00: mouth [place] ing tablet 00 every 8 Medica l (eight) Branch hours as needed for Nausea and Vomiting (N/V) for up to 15 doses. ondansetron 2020-0 Yes [id number] 4mg Take 1 Univers 4 mg 3-06 tablet by ity of disintegrat 00:00: mouth [place] ing tablet 00 every 8 Medica l (eight) Branch hours as needed for Nausea and Vomiting (N/V) for up to 15 doses. ondansetron 2020-0 Yes [id number] 4mg Take 1 Univers 4 mg 3-06 tablet by ity of disintegrat 00:00: mouth [place] ing tablet 00 every 8 Medica l (eight) Branch hours as needed for Nausea and Vomiting (N/V) for up to 15 doses. ondansetron 2020-0 Yes [id number] 4mg Take 1 Univers 4 mg 3-06 tablet by ity of disintegrat 00:00: mouth [place] ing tablet 00 every 8 Medica l (eight) Branch hours as needed for Nausea and Vomiting (N/V) for up to 15 doses. ondansetron 2020-0 Yes [id number] 4mg Take 1 Univers 4 mg 3-06 tablet by ity of disintegrat 00:00: mouth [place] ing tablet 00 every 8 Medica l (eight) Branch hours as needed for Nausea and Vomiting (N/V) for up to 15 doses. ondansetron 2020-0 Yes [id number] 4mg Take 1 Univers 4 mg 3-06 tablet by ity of disintegrat 00:00: mouth [place] ing tablet 00 every 8 Medica l (eight) Branch hours as needed for Nausea and Vomiting (N/V) for up to 15 doses. ondansetron 2020-0 Yes [id number] 4mg Take 1 Univers 4 mg 3-06 tablet by ity of disintegrat 00:00: mouth [place] ing tablet 00 every 8 Medica l (eight) Branch hours as needed for Nausea and Vomiting (N/V) for up to 15 doses. ondansetron 2020-0 Yes [id number] 4mg Take 1 Univers 4 mg 3-06 tablet by ity of disintegrat 00:00: mouth [place] ing tablet 00 every 8 Medica l (eight) Branch hours as needed for Nausea and Vomiting (N/V) for up to 15 doses. ondansetron 2020-0 Yes [id number] 4mg Take 1 Univers 4 mg 3-06 tablet by ity of disintegrat 00:00: mouth [place] ing tablet 00 every 8 Medica l (eight) Branch hours as needed for Nausea and Vomiting (N/V) for up to 15 doses. ondansetron 2020-0 Yes [id number] 4mg Take 1 Univers 4 mg 3-06 tablet by ity of disintegrat 00:00: mouth [place] ing tablet 00 every 8 Medica l (eight) Branch hours as needed for Nausea and Vomiting (N/V) for up to 15 doses. ondansetron 2020-0 Yes [id number] 4mg Take 1 Univers 4 mg 3-06 tablet by ity of disintegrat 00:00: mouth [place] ing tablet 00 every 8 Medica l (eight) Branch hours as needed for Nausea and Vomiting (N/V) for up to 15 doses. ondansetron 2020-0 Yes [id number] 4mg Take 1 Univers 4 mg 3-06 tablet by ity of disintegrat 00:00: mouth [place] ing tablet 00 every 8 Medica l (eight) Branch hours as needed for Nausea and Vomiting (N/V) for up to 15 doses. ondansetron 2020-0 Yes [id number] 4mg Take 1 Univers 4 mg 3-06 tablet by ity of disintegrat 00:00: mouth [place] ing tablet 00 every 8 Medica l (eight) Branch hours as needed for Nausea and Vomiting (N/V) for up to 15 doses. ondansetron 2020-0 Yes [id number] 4mg Take 1 Univers 4 mg 3-06 tablet by ity of disintegrat 00:00: mouth [place] ing tablet 00 every 8 Medica l (eight) Branch hours as needed for Nausea and Vomiting (N/V) for up to 15 doses. ondansetron 2020-0 Yes [id number] 4mg Take 1 Univers 4 mg 3-06 tablet by ity of disintegrat 00:00: mouth [place] ing tablet 00 every 8 Medica l (eight) Branch hours as needed for Nausea and Vomiting (N/V) for up to 15 doses. ondansetron 2020-0 Yes [id number] 4mg Take 1 Univers 4 mg 3-06 tablet by ity of disintegrat 00:00: mouth [place] ing tablet 00 every 8 Medica l (eight) Branch hours as needed for Nausea and Vomiting (N/V) for up to 15 doses. ondansetron 2020-0 Yes [id number] 4mg Take 1 [facility] 4 mg 3-06 tablet by ity of disintegrat 00:00: mouth [place] ing tablet 00 every 8 Medica l (eight) Branch hours as needed for Nausea and Vomiting (N/V) for up to 15 doses. ondansetron 2020-0 Yes [id number] 4mg Take 1 [facility] 4 mg 3-06 tablet by ity of disintegrat 00:00: mouth [place] ing tablet 00 every 8 Medica l (eight) Branch hours as needed for Nausea and Vomiting (N/V) for up to 15 doses. ondansetron 2020-0 Yes [id number] 4mg Take 1 Univers 4 mg 3-06 tablet by ity of disintegrat 00:00: mouth [place] ing tablet 00 every 8 Medica l (eight) Branch hours as needed for Nausea and Vomiting (N/V) for up to 15 doses. ondansetron 2020-0 Yes [id number] 4mg Take 1 Univers 4 mg 3-06 tablet by ity of disintegrat 00:00: mouth [place] ing tablet 00 every 8 Medica l (eight) Branch hours as needed for Nausea and Vomiting (N/V) for up to 15 doses. ondansetron 2020-0 Yes [id number] 4mg Take 1 [facility] 4 mg 3-06 tablet by ity of disintegrat 00:00: mouth [place] ing tablet 00 every 8 Medica l (eight) Branch hours as needed for Nausea and Vomiting (N/V) for up to 15 doses. ondansetron 2020-0 Yes [id number] 4mg Take 1 [facility] 4 mg 3-06 tablet by ity of disintegrat 00:00: mouth [place] ing tablet 00 every 8 Medica l (eight) Branch hours as needed for Nausea and Vomiting (N/V) for up to 15 doses. ondansetron 2020-0 Yes [id number] 4mg Take 1 [facility] 4 mg 3-06 tablet by ity of disintegrat 00:00: mouth [place] ing tablet 00 every 8 Medica l (eight) Branch hours as needed for Nausea and Vomiting (N/V) for up to 15 doses. ondansetron 2020-0 Yes [id number] 4mg Take 1 [facility] 4 mg 3-06 tablet by ity of disintegrat 00:00: mouth [place] ing tablet 00 every 8 Medica l (eight) Branch hours as needed for Nausea and Vomiting (N/V) for up to 15 doses. ondansetron 2020-0 1- No [id number] 4mg Take 1 Univers 4 mg 3-06 [...] PATCH ity of Transdermal Transdermal 00:00: DAILY [place] Patch 24 Patch 24 00 DIRECTED. Ph [...] 00 First dose Medical on [facility] Branch 09/15/19 at 1700, Until Discontinu ed, Routine metoprolol 2020-0 Yes 50mg Take 50 mg U nivers succinate 3-03 by mouth ity of 50 mg CSpX 20:03: daily. [address] spironolact 2020-0 Yes 25mg Take 25 mg Univers one 25 mg 3-03 by mouth ity of tablet 20:03: daily. [address] insulin NPH 2020-0 Yes 18U inject 18 U nivers human 3-03 Units ity of isophane 20:03: [place] the [place] (HUMULIN N 35 skin 2 Medical NPH INSULIN (two) Branch [facility] times daily. metoprolol 2020-0 Yes 50mg Take 50 mg U nivers succinate 3-03 by mouth ity of 50 mg CSpX 20:03: daily. [address] spironolact 2020-0 Yes 25mg Take 25 mg [facility] one 25 mg 3-03 by mouth ity of tablet 20:03: daily. [address] insulin NPH 2020-0 Yes 18U inject 18 U nivers human 3-03 Units ity of isophane 20:03: under the [place] (HUMULIN N 35 skin 2 Medical NPH INSULIN (two) Branch [place]) times daily. metoprolol 2020-0 Yes 50mg Take 50 mg U nivers succinate 3-03 by mouth ity of 50 mg CSpX 20:03: daily. [address] spironolact 2020-0 Yes 25mg Take 25 mg [facility] one 25 mg 3-03 by mouth ity of tablet 20:03: daily. [address] insulin NPH 2020-0 Yes 18U inject 18 U nivers human 3-03 Units ity of isophane 20:03: under the [place] (HUMULIN N 35 skin 2 Medical NPH INSULIN (two) Branch KWIKPEN SC) times daily. metoprolol 2020-0 Yes 50mg Take 50 mg U nivers succinate 3-03 by mouth ity of 50 mg CSpX 20:03: daily. [address] spironolact 2020-0 Yes 25mg Take 25 mg [facility] one 25 mg 3-03 by mouth ity of tablet 20:03: daily. [address] insulin NPH 2020-0 Yes 18U inject 18 U nivers human 3-03 Units ity of isophane 20:03: under the [place] (HUMULIN N 35 skin 2 Medical NPH INSULIN (two) Branch KWIKPEN SC) times daily. furosemide 2020-0 2020- No 40mg Take 40 mg Univers 40 mg 3-03 03-03 by mouth ity of tablet 18:07: 00:00 daily. [place] 59 :00 [facility] Branch doxycycline 2020-0 Yes [id number] 100mg Take 1 Univers hyclate 100 3-03 9103 capsule by it y of mg capsule 00:00: mouth [place] 00 every 12 Medical (twelve) Branch hours. furosemide 2020-0 Yes [id number] 40mg Take 1 [facility] 40 mg 3-03 9103 tablet by ity of tablet 00:00: mouth [place] 00 every Medical morning Branch and evening. lisinopril 2020-0 Yes [id number] 5mg Take 1 Univers 5 mg tablet 3-03 9103 tablet by ity of 00:00: mouth 2 [place] 00 (two) Medical times Branch daily. amoxicillin 2020-0 Yes [id number] 1{tbl} Take 1 Univers -clavulanat 3-03 9103 tablet by ity of e 00:00: mouth 2 [place] (AUGMENTIN) 00 (two) Medical 875-125 mg times Branch per tablet daily. doxycycline 2020-0 Yes [id number] 100mg Take 1 [facility] hyclate 100 3-03 9103 capsule by it y of mg capsule 00:00: mouth [place] 00 every 12 Medical (twelve) Branch hours. furosemide 2020-0 Yes [id number] 40mg Take 1 [facility] 40 mg 3-03 9103 tablet by ity of tablet 00:00: mouth [place] 00 every Medical morning Branch and evening. lisinopril 2020-0 Yes [id number] 5mg Take 1 Univers 5 mg tablet 3-03 9103 tablet by ity of 00:00: mouth 2 (two) Medical times Branch daily. amoxicillin 2020-0 Yes [id number] 1{tbl} Take 1 Univers -clavulanat 3-03 9103 tablet by ity of e 00:00: mouth 2 [place] (AUGMENTIN) 00 (two) Medical 875-125 mg times Branch per tablet daily. doxycycline 2020-0 Yes [id number] 100mg Take 1 [facility] hyclate 100 3-03 9103 capsule by it y of mg capsule 00:00: mouth [place] 00 every 12 Medical (twelve) Branch hours. furosemide 2020-0 Yes [id number] 40mg Take 1 [facility] 40 mg 3-03 9103 tablet by ity of tablet 00:00: mouth [place] 00 every Medical morning Branch and evening. lisinopril 2020-0 Yes [id number] 5mg Take 1 [facility] 5 mg tablet 3-03 9103 tablet by ity of 00:00: mouth 2 [place] 00 (two) Medical times Branch daily. amoxicillin 2020-0 Yes [id number] 1{tbl} Take 1 [facility] -clavulanat 3-03 9103 tablet by ity of e 00:00: mouth 2 [place] (AUGMENTIN) 00 (two) Medical 875-125 mg times Branch per tablet daily. doxycycline 2020-0 Yes [id number] 100mg Take 1 [facility] hyclate 100 3-03 9103 capsule by it y of mg capsule 00:00: mouth [place] 00 every 12 Medical (twelve) Branch hours. furosemide 2020-0 Yes [id number] 40mg Take 1 [facility] 40 mg 3-03 9103 tablet by ity of tablet 00:00: mouth [place] 00 every Medical morning Branch and evening. lisinopril 2020-0 Yes [id number] 5mg Take 1 [facility] 5 mg tablet 3-03 9103 tablet by ity of 00:00: mouth 2 [place] 00 (two) Medical times Branch daily. amoxicillin 2020-0 Yes [id number] 1{tbl} Take 1 [facility] -clavulanat 3-03 9103 tablet by ity of e 00:00: mouth 2 [place] (AUGMENTIN) 00 (two) Medical 875-125 mg times Branch per tablet daily. doxycycline 2020-0 Yes [id number] 100mg Take 1 [facility] hyclate 100 3-03 9103 capsule by it y of mg capsule 00:00: mouth [place] 00 every 12 Medical (twelve) Branch hours. furosemide 2020-0 Yes [id number] 40mg Take 1 [facility] 40 mg 3-03 9103 tablet by ity of tablet 00:00: mouth [place] 00 every Medical morning Branch and evening. lisinopril 2020-0 Yes [id number] 5mg Take 1 [facility] 5 mg tablet 3-03 9103 tablet by ity of 00:00: mouth 2 [place] 00 (two) Medical times Branch daily. amoxicillin 2020-0 Yes [id number] 1{tbl} Take 1 [facility] -clavulanat 3-03 9103 tablet by ity of e 00:00: mouth 2 [place] (AUGMENTIN) 00 (two) Medical 875-125 mg times Branch per tablet daily. doxycycline 2020-0 Yes [id number] 100mg Take 1 [facility] hyclate 100 3-03 9103 capsule by it y of mg capsule 00:00: mouth [place] 00 every 12 Medical (twelve) Branch hours. furosemide 2020-0 Yes [id number] 40mg Take 1 [facility] 40 mg 3-03 9103 tablet by ity of tablet 00:00: mouth [place] 00 every Medical morning Branch and evening. furosemide 2020-0 Yes [id number] 40mg Take 1 [facility] 40 mg 3-03 9103 tablet by ity of tablet 00:00: mouth [place] 00 every Medical morning Branch and evening. furosemide 2020-0 Yes [id number] 40mg Take 1 [facility] 40 mg 3-03 9103 tablet by ity of tablet 00:00: mouth [place] 00 every Medical morning Branch and evening. lisinopril 2020-0 Yes [id number] 5mg Take 1 [facility] 5 mg tablet 3-03 9103 tablet by ity of 00:00: mouth 2 [place] 00 (two) Medical times Branch daily. amoxicillin 2020-0 Yes [id number] 1{tbl} Take 1 [facility] -clavulanat 3-03 9103 tablet by ity of e 00:00: mouth 2 [place] (AUGMENTIN) 00 (two) Medical 875-125 mg times Branch per tablet daily. doxycycline 2020-0 Yes [id number] 100mg Take 1 [facility] hyclate 100 3-03 9103 capsule by it y of mg capsule 00:00: mouth [place] 00 every 12 Medical (twelve) Branch hours. furosemide 2020-0 Yes [id number] 40mg Take 1 [facility] 40 mg 3-03 9103 tablet by ity of tablet 00:00: mouth [place] 00 every Medical morning Branch and evening. lisinopril 2020-0 Yes [id number] 5mg Take 1 [facility] 5 mg tablet 3-03 9103 tablet by ity of 00:00: mouth 2 [place] 00 (two) Medical times Branch daily. amoxicillin 2020-0 Yes [id number] 1{tbl} Take 1 [facility] -clavulanat 3-03 9103 tablet by ity of e 00:00: mouth 2 [place] (AUGMENTIN) 00 (two) Medical 875-125 mg times Branch per tablet daily. doxycycline 2020-0 Yes [id number] 100mg Take 1 [facility] hyclate 100 3-03 9103 capsule by it y of mg capsule 00:00: mouth [place] 00 every 12 Medical (twelve) Branch hours. furosemide 2020-0 Yes [id number] 40mg Take 1 [facility] 40 mg 3-03 9103 tablet by ity of tablet 00:00: mouth [place] 00 every Medical morning Branch and evening. lisinopril 2020-0 Yes [id number] 5mg Take 1 [facility] 5 mg tablet 3-03 9103 tablet by ity of 00:00: mouth 2 [place] 00 (two) Medical times Branch daily. amoxicillin 2020-0 Yes [id number] 1{tbl} Take 1 [facility] -clavulanat 3-03 9103 tablet by ity of e 00:00: mouth 2 [place] (AUGMENTIN) 00 (two) Medical 875-125 mg times Branch per tablet daily. furosemide 2019-0 2020- No [id number] 40mg Take 1 [facility] 40 mg 09-14 9103 tablet by ity of tablet 00:00: 00:00 mouth [place] 00 :00 every Medical morning Branch and evening. furosemide 2019-0 2020- No [id number] 40mg Take 1 [facility] 40 mg 09-14 9103 tablet by ity of tablet 00:00: 00:00 mouth [place] 00 :00 every Medical morning Branch and evening. lisinopril 2019- 2020- No [id number] 5mg Take 1 [facility] 5 mg tablet 09-14 9103 tablet by it y of 00:00: 00:00 mouth 2 [place] 00 :00 (two) Medical times Branch daily. amoxicillin 2019- 2020- No [id number] 1{tbl} Take 1 [facility] -clavulanat 09-14 9103 tablet by it y of e 00:00: 00:00 mouth 2 [place] (AUGMENTIN) 00 :00 (two) Medical 875-125 mg times Branch per tablet daily. doxycycline 2019- 2020- No [id number] 100mg Take 1 [facility] hyclate 100 09-14 9103 capsule by i ty of mg capsule 00:00: 00:00 mouth [place] 00 :00 every 12 Medical (twelve) Branch hours. ceFEPIme 2019-0 Yes 1000mg 1,000 mg, Un michael (MAXIPIME) 09-13 IV ity of 1,000 mg in 17:45: Piggyback, [place] NaCl 0.9% 00 Q12H ABX, Medic al (NS) 50 mL First dose Bra gah MINI-BAG on Sat09/14/19 at 1145, Until Discontinu ed, 50 mL
R russ for Anti-Infec tive: Empiric Therapy for Suspected Infection< br>Empiric Therapy Site: Respirator y
Durat ion of therapy: 72 hours bumetanide 2019- 2020- No 1mg 1 mg, Slow Univers (BUMEX) 09-13 IV Push, ity of injection 1 15:00: 16:50 Q8H, First [place] mg 00 :02 dose on Medical 09/14/19 Branch at 0900, Until Discontinu ed, Routine FENTanyl PF 2020-0 Yes 25ug 25 mcg, Uni vers (SUBLIMAZE 09-13 Slow IV ity of (PF)) 02:51: Push, [place] injection 25 Q6HPRN, Medical 25 mcg Starting Branch [place] 09/13/19 at 2050, Until Discontinu ed, Routine, Pain (scale 7-10) azithromyci 2020-0 Yes 500mg 500 mg, Un michael n 3- Oral, ity of (ZITHROMAX) 15:00: DAILY, [place] tablet 500 00 First dose Med ical mg on [facility] 09/13/19 at 0900, Until Discontinu ed, KATHY
Re ason for Anti-Infec tive: Empiric Therapy for Suspected Infection< br>Empiric Therapy Site: Respirator y
Durat ion of therapy: 72 hours enoxaparin 2020-0 Yes 40mg 40 mg, Unive rs (LOVENOX) 09-12 Subcutaneo ity of injection 15:00: us, DAILY, [place] 40 mg 00 First dose Medical on [facility] 09/13/19 at 0900, Until Discontinu ed, Routine insulin NPH 2020-0 Yes 18U 18 Units, U nivers (HUMULIN N) 09-12 Subcutaneo it y of injection 15:00: us, [place] 18 Units 00 QAM+PM, Medical First dose Branch on [place] 09/13/19 at 0900, Until Discontinu ed clopidogreL 2020-0 Yes 75mg 75 mg, Univ ers (PLAVIX) 09-12 Oral, ity of tablet 75 15:00: DAILY, [place] mg 00 First dose Medical on [facility] 09/13/19 at 0900, Until Discontinu ed, Routine aspirin 2020-0 Yes 81mg 81 mg, Univers chewable 09-12 Oral, ity of tablet 81 15:00: DAILY, [place] mg 00 First dose Medical on [facility] 09/13/19 at 0900, Until Discontinu ed, Routine lisinopril 2020-0 Yes 5mg 5 mg, Univer s (PRINIVIL,Z 09-12 Oral, BID, it y of ESTRIL) 14:00: First [place] tablet 5 mg 00 on [place] Medica l 09/13/19 at Branch 0800, Until [...] First dose Med ical 50 mg on [place] Branch 09/13/19 at 0600, Until Discontinu ed bumetanide 2020-0 2020- No 1mg 1 mg, Slow Univers (BUMEX) 09-12 IV Push, ity of injection 1 04:00: 20:30 Q8H, 3 [place] mg 00 :00 doses, Medical First dose Branch on [facility] 09/12/19 at 2200, Last dose on [place] 09/13/19 at 1400, Routine atorvastati 2020-0 Yes 80mg 80 mg, Univ ers n (LIPITOR) 09-12 Oral, QHS, it y of tablet 80 03:00: First dose [place] mg 00 on [facility] Medical 09/12/19 at Branch 2100, Until Discontinu ed, Routine Sliding 2020-0 Yes Subcutaneo Univ ers Scale 3 us, TID ity of Insulin - 03:00: MEALS+HS, You as Lispro 00 First dose Medical (HumaLOG) + on [facility] Branch [facility]sbg 09/12/19 at Testing 2100, Until Discontinu ed, Routine benzonatate 2020-0 Yes 100mg 100 mg, Un michael (TESSALON 09-12 Oral, ity of PERLES) 02:26: Q6HPRN, [place] capsule 100 20 Starting Medi lizzy mg Sat Branch 09/12/19 at 2026, Until Discontinu ed, Routine, Cough ipratropium 2020-0 Yes .5mg 0.5 mg, Uni vers (ATROVENT) 09-12 Inhalation ity of 0.02 % 02:00: , QID, [place] nebulizer 00 First dose Medi lizzy solution on Sat Branch 0.5 mg 09/12/19 at 1999, Until Discontinu ed, Routine docusate 2020-0 Yes 100mg 100 mg, Unive rs (COLACE) 09-12 Oral, BID, ity o f capsule 100 02:00: First dose [place] mg 00 on [facility] Medical 09/12/19 at Branch 2000, Until Discontinu ed, Routine ondansetron 2020-0 Yes 4mg 4 mg, Slow Univers (ZOFRAN 09-12 IV Push, ity of (PF)) 00:11: Q6HPRN, [place] injection 4 27 Starting Medi lizzy mg Sat Branch 09/12/19 at 1811, Until Discontinu ed, Routine, Nausea and Vomiting (N/V) acetaminoph 2020-0 Yes 650mg 650 mg, Un michael en 09-12 Oral, ity of (TYLENOL) 00:11: Q6HPRN, [place] tablet 650 19 Starting Medic al mg [facility] Branch 09/12/19 at 1811, Until Discontinu [...] at 1300, Until 09/12/19 at 1753 bumetanide 2019-0 2020- No 1.25mg 1.25 mg, Univers (BUMEX) [...] Bra nch 09/12/19 at 1200, Routine azithromyci 0 2020- No 500mg 500 mg, IV Univers n Piggyback, ity of (ZITHROMAX) 17:00: 16:33 ONCE, 1 [place] 500 mg in 00 :00 dose, Sat Medic al NaCl 0.9% 09/12/19 at Bran ch (NS) 250 mL 1100, STAT
Re ason for Anti-Infec tive: Empiric Therapy for Suspected Infection< br>Empiric Therapy Site: Respirator y
Durat ion of therapy: 72 hours cefTRIAXone 2020- No 1000mg 1,000 mg, Univers (ROCEPHIN) IV ity of 1,000 mg in 17:00: 16:57 Piggyback, [place] NaCl 0.9% 00 :00 ONCE, 1 Medical [...] ity of 50 mg CSpX 20:31: daily. [address] spironolact 2020-0 Yes 25mg Take 25 mg Univers one 25 mg 2-24 by mouth ity of tablet 20:31: daily. [address] furosemide 2020-0 Yes 40mg Take 40 mg U nivers 40 mg 2-24 by mouth ity of tablet 20:31: daily. [address] insulin NPH 2020-0 Yes 18U inject 18 U nivers human 2-24 Units ity of isophane 20:31: under the [place] (HUMULIN N 45 skin 2 Medical NPH INSULIN (two) Branch KWIKPEN SC) times daily. metoprolol 2020-0 Yes 50mg Take 50 mg U nivers succinate 2-24 by mouth ity of 50 mg CSpX 20:31: daily. [address] spironolact 2020-0 Yes 25mg Take 25 mg Univers one 25 mg 2-24 by mouth ity of tablet 20:31: daily. [address] furosemide 2020-0 Yes 40mg Take 40 mg U nivers 40 mg 2-24 by mouth ity of tablet 20:31: daily. [address] insulin NPH 2020-0 Yes 18U inject 18 U nivers human 2-24 Units ity of isophane 20:31: under the [place] (HUMULIN N 45 skin 2 Medical NPH INSULIN (two) Branch KWIKPEN SC) times daily. metoprolol 2020-0 Yes 50mg Take 50 mg U nivers succinate 2-24 by mouth ity of 50 mg CSpX 20:31: daily. [address] spironolact 2020-0 Yes 25mg Take 25 mg Univers one 25 mg 2-24 by mouth ity of tablet 20:31: daily. [address] furosemide 2020-0 Yes 40mg Take 40 mg U nivers 40 mg 2-24 by mouth ity of tablet 20:31: daily. [address] insulin NPH 2020-0 Yes 18U inject 18 U nivers human 2-24 Units ity of isophane 20:31: under the [place] (HUMULIN N 45 skin 2 Medical NPH INSULIN (two) Branch KWIKPEN SC) times daily. clopidogreL 2020-0 Yes [id number] 75mg Take 1 [facility] 75 mg 2-24 tablet by ity of tablet 00:00: mouth [place] 00 daily. [facility] Branch nicotine 14 2020-0 Yes [id number] 1{patch Apply 1 Univers mg/24 hr 2-24 } Patch to ity of patch 00:00: area(s) [place] 00 every 24 Medical (twenty-fo Branch ur) hours. clopidogreL 2020-0 Yes [id number] 75mg Take 1 [facility] 75 mg 2-24 tablet by ity of tablet 00:00: mouth [place] 00 daily. [facility] nicotine 14 2020-0 Yes [id number] 1{patch Apply 1 Univers mg/24 hr 2-24 } Patch to ity of patch 00:00: area(s) [place] 00 every 24 Medical (twenty- Branch ur) hours. clopidogreL 2020-0 Yes [id number] 75mg Take 1 [facility] 75 mg 2-24 tablet by ity of tablet 00:00: mouth [place] 00 daily. Medical Branch nicotine 14 2020-0 Yes [id number] 1{patch Apply 1 [facility] mg/24 hr 2-24 } Patch to ity of patch 00:00: [facility] [place] 00 every 24 Medical (twenty- Branch ur) hours. clopidogreL 2020-0 Yes [id number] 75mg Take 1 [facility] 75 mg 2-24 tablet by ity of tablet 00:00: mouth [place] 00 daily. Medical Branch nicotine 14 2020-0 Yes [id number] 1{patch Apply 1 [facility] mg/24 hr 2-24 } Patch to ity of patch 00:00: [facility] [place] 00 every 24 Medical (twenty-fo Branch ur) hours. clopidogreL 2020-0 Yes [id number] 75mg Take 1 [facility] 75 mg 2-24 tablet by ity of tablet 00:00: mouth [place] 00 daily. Medical Branch nicotine 14 2020-0 Yes [id number] 1{patch Apply 1 [facility] mg/24 hr 2-24 } Patch to ity of patch 00:00: [facility] [place] 00 every 24 Medical ([facility] Branch ur) hours. clopidogreL 2020-0 Yes [id number] 75mg Take 1 [facility] 75 mg 2-24 tablet by ity of tablet 00:00: mouth [place] 00 daily. Medical Branch nicotine 14 2020-0 Yes [id number] 1{patch Apply 1 [facility] mg/24 hr 2-24 } Patch to ity of patch 00:00: [facility] [place] 00 every 24 Medical ([facility] Branch ur) hours. clopidogreL 2020-0 Yes [id number] 75mg Take 1 [facility] 75 mg 2-24 tablet by ity of tablet 00:00: mouth [place] 00 daily. Medical Branch nicotine 14 2020-0 Yes [id number] 1{patch Apply 1 [facility] mg/24 hr 2-24 } Patch to ity of patch 00:00: [facility] [place] 00 every 24 Medical (twenty-fo Branch ur) hours. clopidogreL 2020-0 Yes [id number] 75mg Take 1 [facility] 75 mg 2-24 tablet by ity of tablet 00:00: mouth [place] 00 daily. Medical Branch nicotine 14 2020-0 Yes [id number] 1{patch Apply 1 [facility] mg/24 hr 2-24 } Patch to ity of patch 00:00: area(s) [place] 00 every 24 Medical (twenty-fo Branch ur) hours. nicotine 14 2020-0 Yes [id number] 1{patch Apply 1 [facility] mg/24 hr 2-24 } Patch to ity of patch 00:00: [facility] [place] 00 every 24 Medical (twenty-fo Branch ur) hours. nicotine 14 2020-0 Yes [id number] 1{patch Apply 1 [facility] mg/24 hr 2-24 } Patch to ity of patch 00:00: [facility] [place] 00 every 24 Medical (twenty-fo Branch ur) hours. nicotine 14 2020-0 Yes [id number] 1{patch Apply 1 [facility] mg/24 hr 2-24 } Patch to ity of patch 00:00: [facility] [place] 00 every 24 Medical (twenty-fo Branch ur) hours. nicotine 14 2019-0 Yes [id number] 1{patch Apply 1 [facility] mg/24 hr 2-24 } Patch to ity of patch 00:00: [facility] [place] 00 every 24 Medical (twenty-fo Branch ur) hours. nicotine 14 2019-0 Yes [id number] 1{patch Apply 1 [facility] mg/24 hr 2-24 } Patch to ity of patch 00:00: [facility] [place] 00 every 24 Medical (twenty-fo Branch ur) hours. nicotine 14 2019-0 Yes [id number] 1{patch Apply 1 Univers mg/24 hr 2-24 } Patch to ity of patch 00:00: [facility] [place] 00 every 24 Medical (twenty-fo Branch ur) hours. nicotine 14 2020-0 Yes [id number] 1{patch Apply 1 [facility] mg/24 hr 2-24 } Patch to ity of patch 00:00: [facility] [place] 00 every 24 Medical (twenty-fo Branch ur) hours. nicotine 14 2020-0 Yes [id number] 1{patch Apply 1 [facility] mg/24 hr 2-24 } Patch to ity of patch 00:00: [facility] [place] 00 every 24 Medical (twenty-fo Branch ur) hours. nicotine 14 2020-0 Yes [id number] 1{patch Apply 1 [facility] mg/24 hr 2-24 } Patch to ity of patch 00:00: [facility] [place] 00 every 24 Medical (twenty-fo Branch ur) hours. nicotine 14 2020-0 Yes [id number] 1{patch Apply 1 [facility] mg/24 hr 2-24 } Patch to ity of patch 00:00: area(s) [place] 00 every 24 Medical (twenty-fo Branch ur) hours. nicotine 14 2020-0 Yes [id number] 1{patch Apply 1 [facility] mg/24 hr 2-24 } Patch to ity of patch 00:00: area(s) [place] 00 every 24 Medical (twenty-fo Branch ur) hours. nicotine 14 2020-0 Yes [id number] 1{patch Apply 1 [facility] mg/24 hr 2-24 } Patch to ity of patch 00:00: area(s) [place] 00 every 24 Medical (twenty-fo Branch ur) hours. nicotine 14 2020-0 Yes [id number] 1{patch Apply 1 [facility] mg/24 hr 2-24 } Patch to ity of patch 00:00: area(s) [place] 00 every 24 Medical (twenty-fo Branch ur) hours. nicotine 14 2020-0 Yes [id number] 1{patch Apply 1 [facility] mg/24 hr 2-24 } Patch to ity of patch 00:00: area(s) [place] 00 every 24 Medical (twenty-fo Branch ur) hours. nicotine 14 2020-0 Yes [id number] 1{patch Apply 1 Univers mg/24 hr 2-24 } Patch to ity of patch 00:00: area(s) [place] 00 every 24 Medical (twenty-fo Branch ur) hours. nicotine 14 2020-0 Yes [id number] 1{patch Apply 1 [facility] mg/24 hr 2-24 } Patch to ity of patch 00:00: area(s) [place] 00 every 24 Medical (twenty-fo Branch ur) hours. nicotine 14 2020-0 Yes [id number] 1{patch Apply 1 [facility] mg/24 hr 2-24 } Patch to ity of patch 00:00: area(s) [place] 00 every 24 Medical (twenty-fo Branch ur) hours. nicotine 14 2020-0 Yes [id number] 1{patch Apply 1 Univers mg/24 hr 2-24 } Patch to ity of patch 00:00: area(s) [place] 00 every 24 Medical (twenty-fo Branch ur) hours. nicotine 14 2020-0 Yes [id number] 1{patch Apply 1 [facility] mg/24 hr 2-24 } Patch to ity of patch 00:00: area(s) [place] 00 every 24 Medical (twenty-fo Branch ur) hours. nicotine 14 2020-0 Yes [id number] 1{patch Apply 1 Univers mg/24 hr 2-24 } Patch to ity of patch 00:00: area(s) [place] 00 every 24 Medical (twenty-fo Branch ur) hours. nicotine 14 2020-0 Yes [id number] 1{patch Apply 1 [facility] mg/24 hr 2-24 } Patch to ity of patch 00:00: area(s) [place] 00 every 24 Medical (twenty-fo Branch ur) hours. nicotine 14 2020-0 Yes [id number] 1{patch Apply 1 [facility] mg/24 hr 2-24 } Patch to ity of patch 00:00: area(s) [place] 00 every 24 Medical (twenty-fo Branch ur) hours. nicotine 14 2020-0 Yes [id number] 1{patch Apply 1 [facility] mg/24 hr 2-24 } Patch to ity of patch 00:00: [facility] [place] 00 every 24 Medical (twenty-fo Branch ur) hours. nicotine 14 2020-0 Yes [id number] 1{patch Apply 1 [facility] mg/24 hr 2-24 } Patch to ity of patch 00:00: [facility] [place] 00 every 24 Medical (twenty-fo Branch ur) hours. nicotine 14 2020-0 Yes [id number] 1{patch Apply 1 [facility] mg/24 hr 2-24 } Patch to ity of patch 00:00: [facility] [place] 00 every 24 Medical (twenty-fo Branch ur) hours. nicotine 14 2020-0 Yes [id number] 1{patch Apply 1 [facility] mg/24 hr 2-24 } Patch to ity of patch 00:00: area(s) [place] 00 every 24 Medical (twenty-fo Branch ur) hours. nicotine 14 2020-0 Yes [id number] 1{patch Apply 1 [facility] mg/24 hr 2-24 } Patch to ity of patch 00:00: area(s) [place] 00 every 24 Medical (twenty-fo Branch ur) hours. nicotine 14 2020-0 Yes [id number] 1{patch Apply 1 [facility] mg/24 hr 2-24 } Patch to ity of patch 00:00: [facility] [place] 00 every 24 Medical (twenty-fo Branch ur) hours. nicotine 14 2020-0 Yes [id number] 1{patch Apply 1 [facility] mg/24 hr 2-24 } Patch to ity of patch 00:00: area(s) [place] 00 every 24 Medical (twenty-fo Branch ur) hours. nicotine 14 2020-0 Yes [id number] 1{patch Apply 1 [facility] mg/24 hr 2-24 } Patch to ity of patch 00:00: [facility] [place] 00 every 24 Medical (twenty-fo Branch ur) hours. nicotine 14 2020-0 Yes [id number] 1{patch Apply 1 [facility] mg/24 hr 2-24 } Patch to ity of patch 00:00: [facility] [place] 00 every 24 Medical (twenty-fo Branch ur) hours. nicotine 14 2020-0 Yes [id number] 1{patch Apply 1 [facility] mg/24 hr 2-24 } Patch to ity of patch 00:00: [facility] [place] 00 every 24 Medical (twenty-fo Branch ur) hours. nicotine 14 2020-0 Yes [id number] 1{patch Apply 1 [facility] mg/24 hr 2-24 } Patch to ity of patch 00:00: [facility] [place] 00 every 24 Medical (twenty-fo Branch ur) hours. nicotine 14 2020-0 Yes [id number] 1{patch Apply 1 [facility] mg/24 hr 2-24 } Patch to ity of patch 00:00: [facility] [place] 00 every 24 Medical (twenty-fo Branch ur) hours. nicotine 14 2020-0 Yes [id number] 1{patch Apply 1 [facility] mg/24 hr 2-24 } Patch to ity of patch 00:00: [facility] [place] 00 every 24 Medical (twenty-fo Branch ur) hours. nicotine 14 2020-0 Yes [id number] 1{patch Apply 1 [facility] mg/24 hr 2-24 } Patch to ity of patch 00:00: [facility] [place] 00 every 24 Medical (twenty-fo Branch ur) hours. nicotine 14 2020-0 Yes [id number] 1{patch Apply 1 [facility] mg/24 hr 2-24 } Patch to ity of patch 00:00: [facility] [place] 00 every 24 Medical (twenty-fo Branch ur) hours. clopidogreL 2020-0 Yes [id number] 75mg Take 1 [facility] 75 mg 2-24 tablet by ity of tablet 00:00: [facility] [place] 00 daily. Medical Branch nicotine 14 2020-0 Yes [id number] 1{patch Apply 1 [facility] mg/24 hr 2-24 } Patch to ity of patch 00:00: [facility] [place] 00 every 24 Medical (twenty-fo Branch ur) hours. clopidogreL 2020-0 Yes [id number] 75mg Take 1 [facility] 75 mg 2-24 tablet by ity of tablet 00:00: mouth [place] 00 daily. Medical Branch nicotine 14 2020-0 Yes [id number] 1{patch Apply 1 [facility] mg/24 hr 2-24 } Patch to ity of patch 00:00: [facility] [place] 00 every 24 Medical (twenty-fo Branch ur) hours. clopidogreL 2020-0 Yes [id number] 75mg Take 1 [facility] 75 mg 2-24 tablet by ity of tablet 00:00: mouth [place] 00 daily. Medical Branch nicotine 14 2020-0 Yes [id number] 1{patch Apply 1 [facility] mg/24 hr 2-24 } Patch to ity of patch 00:00: [facility] [place] 00 every 24 Medical (twenty-fo Branch ur) hours. clopidogreL 2020-0 Yes [id number] 75mg Take 1 [facility] 75 mg 2-24 tablet by ity of tablet 00:00: mouth [place] 00 daily. Medical Branch nicotine 14 2020-0 Yes [id number] 1{patch Apply 1 [facility] mg/24 hr 2-24 } Patch to ity of patch 00:00: [facility] [place] 00 every 24 Medical (twenty-fo Branch ur) hours. clopidogreL 2020-0 Yes [id number] 75mg Take 1 [facility] 75 mg 2-24 tablet by ity of tablet 00:00: mouth [place] 00 daily. Medical Branch nicotine 14 2020-0 Yes [id number] 1{patch Apply 1 [facility] mg/24 hr 2-24 } Patch to ity of patch 00:00: [facility] [place] 00 every 24 Medical (twenty-fo Branch ur) hours. nicotine 14 2020-0 2020- No [id number] 1{patch Apply 1 [facility] mg/24 hr 2-24 04-10 } Patch to ity of patch 00:00: 00:00 area(s) [place] 00 :00 every 24 Medical (twenty-fo Branch ur) hours. clopidogreL 2020-0 2020- No [id number] 75mg Take 1 Univers 75 mg 2-24 04-06 tablet by ity of tablet 00:00: 00:00 mouth [place] 00 :00 daily. Medical Branch clopidogreL 2020-0 2020- No [id number] 75mg Take 1 Univers 75 mg 2-24 04-06 tablet by ity of tablet 00:00: 00:00 mouth [place] 00 :00 daily. Medical Branch insulin 2020-0 2020- No 20U inject 20 Univ ers glargine,hu 2- 02-23 Units ity of m.rec.anlog 15:33: 00:00 under the [place] (LANTUS 20 :00 skin 2 Medical U-100 (two) [place] INSULIN SC) times daily. insulin 2019-0 2020- No inject Univers aspart 09-06- under the ity of injection 15:33: 00:00 skin [place] 20 :00 before Medical meals. Branch HYDROcodone 2020-0 Yes 1{tbl} 1 tablet, Univers -acetaminop - Oral, ity of hen (NORCO 15:04: Q6HPRN, [place] 5) 5-325 mg 54 Starting Medi lizzy tablet 1 [facility] tablet 09/06/19 at 0904, Until Discontinu ed, Routine, Pain (scale 4-6) insulin 2019-0 Yes 40U 40 Units, Unive rs glargine 2-23 Subcutaneo ity o f (LANTUS 14:06: us, Q24H, [place] U-100) 00 First dose Medical injection on [facility] 40 Units 09/06/19 at 0815, Until Discontinu ed SERTraline 2019-0 Yes 50mg 50 mg, Unive rs (ZOLOFT) 2-23 Oral, QHS, ity o f tablet 50 03:00: First dose [place] mg 00 on [facility] 09/05/19 at [place] 2100, Until Discontinu ed, Routine docusate 2019-0 Yes 100mg 100 mg, Unive rs (COLACE) 2-23 Oral, BID, ity o f capsule 100 02:00: First dose [place] mg 00 on [facility] 09/05/19 at [place] 2000, Until Discontinu ed, Routine atorvastati 2020-0 Yes [id number] 80mg Take 1 Univers n 80 mg 2-23 tablet by ity of tablet 00:00: mouth at [place] 00 bedtime. [facility] Branch atorvastati 2020-0 Yes [id number] 80mg Take 1 Univers n 80 mg 2-23 tablet by ity of tablet 00:00: mouth at [place] 00 bedtime. [facility] atorvastati 2020-0 Yes [id number] 80mg Take 1 Univers n 80 mg 2-23 tablet by ity of tablet 00:00: mouth at [place] 00 bedtime. Medical Branch atorvastati 2020-0 Yes [id number] 80mg Take 1 Univers n 80 mg 2-23 tablet by ity of tablet 00:00: mouth at [place] [address] bedtime. Medical Branch atorvastati 2020-0 Yes [id number] 80mg Take 1 Univers n 80 mg 2-23 tablet by ity of tablet 00:00: mouth at [place] [address] bedtime. Medical Branch atorvastati 2020-0 Yes [id number] 80mg Take 1 Univers n 80 mg 2-23 tablet by ity of tablet 00:00: mouth at [place] [address] bedtime. Medical Branch atorvastati 2020-0 Yes [id number] 80mg Take 1 Univers n 80 mg 2-23 tablet by ity of tablet 00:00: mouth at [place] [address] bedtime. Medical Branch atorvastati 2020-0 Yes [id number] 80mg Take 1 Univers n 80 mg 2-23 tablet by ity of tablet 00:00: mouth at [place] [address] bedtime. Medical Branch atorvastati 2020-0 Yes [id number] 80mg Take 1 Univers n 80 mg 2-23 tablet by ity of tablet 00:00: mouth at [place] [address] bedtime. Medical Branch atorvastati 2020-0 Yes [id number] 80mg Take 1 Univers n 80 mg 2-23 tablet by ity of tablet 00:00: mouth at [place] [address] bedtime. Medical Branch atorvastati 2020-0 Yes [id number] 80mg Take 1 Univers n 80 mg 2-23 tablet by ity of tablet 00:00: mouth at [place] [address] bedtime. Medical Branch atorvastati 2020-0 Yes [id number] 80mg Take 1 Univers n 80 mg 2-23 tablet by ity of tablet 00:00: mouth at [place] [address] bedtime. Medical Branch atorvastati 2020-0 Yes [id number] 80mg Take 1 Univers n 80 mg 2-23 tablet by ity of tablet 00:00: mouth at [place] [address] bedtime. Medical Branch atorvastati 2020-0 2020- No [id number] 80mg Take 1 Univers n 80 mg 2-23 04-06 tablet by ity of tablet 00:00: 00:00 mouth at [place] 00 :00 bedtime. Medical Branch atorvastati 2020-0 2020- No [id number] 80mg Take 1 Univers n 80 mg 2-23 04-06 tablet by ity of tablet 00:00: 00:00 mouth at [place] 00 :00 bedtime. Medical Branch Sliding 2020-0 Yes Subcutaneo Univ ers Scale 2-22 us, AC+HS, ity of Insulin - 17:30: [place] dose [place] Aspart 00 on [facility] Medical (NOVOLOG) + 09/05/19 at anch Fsbg 1130, Testing Until Discontinu ed, Routine ipratropium 2020-0 Yes 3mL 3 mL, Unive rs -albuterol - Inhalation ity of (DUONEB) 14:45: , Q6HPRN, [place] 0.5 mg-3 00 Starting Medical mg(2.5 mg [facility] base)/3 mL 09/05/19 at nebulizer 0845, solution 3 Until mL Discontinu ed, Routine, Wheezing, Shortness of Breath, Bronchospa sm ondansetron 2020-0 Yes 4mg 4 mg, Slow Univers (ZOFRAN - IV Push, ity of (PF)) 14:43: Q6HPRN, [place] injection 4 22 Starting Medi lizzy mg [facility] 09/05/19 at 0843, Until Discontinu ed, Routine, Nausea and Vomiting (N/V) KCL 20 2020-0 2020- No 20meq 20 mEq, Univer s mEq/15 mL 09-05- Oral, ity of solution 20 11:45: 11:29 ONCE, 1 [place] mEq 00 :00 dose, [facility] Medical 09/05/19 at Branch 0545, Routine [...] Fri Medi lizzy (4 %) 09/04/19 at [place] infusion 2 0730, g Routine KCL 2020-0 [...] 09/03/19 at 0900, Until Discontinu ed, Routine
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 Medical 235 mL/hr, Branch [...] mg 00 First dose Medical on Sat [place] 09/01/19 at 1330, Until Discontinu ed, Routine [...] 4 32 :48 Starting Medi lizzy mg [facility] 09/01/19 at 1319, Until 09/05/19 at 0851, KATHY, Nausea and Vomiting (N/V) naloxone 2020-0 Yes .1mg 0.1 mg, Univer s (NARCAN) 2-18 Slow IV ity of injection 19:17: Push, [place] 0.1 mg 45 SEE-INSTRU Medical [facility] Starting [facility] 09/01/19 at 1317, Until Discontinu ed, Routine furosemide 2020-0 Yes 20mg 20 mg, IV Un michael (LASIX) 2-18 Push, PRN, ity of injection 19:13: 2 doses, [place] 20 mg 07 Starting Medical [facility] 09/01/19 at 1313, Until Discontinu ed, KATHY, Pressure Maintenanc e NaCl 0.9% 2020-0 Yes 250mL at 999 Unive rs (NS) bolus 2-18 mL/hr, 250 ity of infusion 19:13: mL, IV [place] 250 mL 07 Infusion, Medical PRN - SEE [place] INSTRUCTIO NS, 3 doses, Starting [facility] 09/01/19 at 1313, Until Discontinu ed, KATHY glucagon 2020-0 Yes 1mg 1 mg, Univers (GLUCAGEN 2-18 Intramuscu ity of DIAGNOSTIC 19:13: lar, PRN, [place] KIT) 06 Starting Medical injection 1 [facility] mg 09/01/19 at 1313, Until Discontinu ed, [...] 09-01 Rectal, ity of (TYLENOL) 19:13: Q6HPRN, [place] suppository 05 Starting Medi lizzy 650 mg [...] 1,000 - Starting ity of unit/mL 14:27: Tue [place] [...] furosemide 2020-0 2020- No 40mg 40 mg, [facility] ers (LASIX) 08-29 Slow IV ity of injection 02:00: 17:00 Push, [place] 40 mg 00 :51 Q12H, Medical First dose Branch on Sat08/28/19 at 2000, Until Discontinu ed, Routine furosemide 2020-0 2020- No 20mg 20 mg, [facility] ers (LASIX) 08-28 Slow IV ity of injection 16:45: 21:51 Push, [place] 20 mg 00 :27 DAILY, Medical First dose Branch on Sat08/28/19 at 1045, Until Discontinu ed, Routine lisinopril 2020-0 2020- No 10mg 10 mg, [facility] ers (PRINIVIL,Z 08-2719 Oral, ity [...] [place] dose [place] 00 on [facility] 08/25/19 at Branch 2100, Until Discontinu ed, Routine furosemide 2020-0 2020- No 40mg 40 mg, Univ ers (LASIX) 08-25 Oral, ity of tablet 40 23:00: 16:15 QAM+PM, [place] mg 00 :13 First dose Medical on [facility] 08/25/19 at 1700, Until Discontinu ed, Routine magnesium 2020-0 2020- No 296mL 296 mL, Uni vers citrate 08-25 Oral, ity of solution 23:00: 23:22 ONCE, 1 [place] 296 mL 00 :00 dose, [facility] 08/25/19 at Branch 1700, Routine D5W 0.45% 2019-0 2020- No 1000mL at 100 Uni vers NaCl 08-25 mL/hr, ity of (1/2NS) IV 19:00: 16:15 1,000 mL, [place] infusion 00 :13 IV Medical 1,000 mL Infusion, Branch CONTINUOUS , Starting Sat08/25/19 at 1300, Until Sat08/26/19 at 1015, Routine peg-electro 2019-0 2020- No 4000mL 4,000 mL, Univers lyte soln 08-24 Oral, ity of (GOLYTELY) 23:00: 04:06 ONCE, 1 You as 236-22.74-6 00 :00 dose, Mon Med ical .74 -5.86 08/24/19 at [facility] gram 1700, solution Routine 4,000 mL furosemide 2019-0 2020- No 20mg 20 mg, IV U nivers (LASIX) 08-23-09 Push, ity of injection 17:00: 18:04 ONCE, 1 [place] 20 mg 00 :00 dose, [place] [facility] 08/23/19 at Branch 1100, Routine metoprolol 2020-0 2020- No 50mg 50 mg, [facility] ers tartrate 08-22- Oral, BID, ity of (LOPRESSOR) 02:00: 13:17 First dose [place] tablet 50 00 :43 on Sat Medical mg 08/21/19 at Branch 1999, Until Discontinu ed, Routine furosemide 2019-2019- No 40mg 40 mg, Univ ers (LASIX) [...] ity of (XYLOCAINE) 00:25: 00:25 TITRATE - [place] injection 30 :30 FOR Medical PROCEDURE Branch USE, 1 dose, Starting 08/21/19 at 1825, Until 08/21/19 at 1825, Routine lidocaine 2019- 2020- No Infiltrati U nivers 1% (PF) 08-22 on, ity of (XYLOCAINE) 00:11: 00:11 TITRATE - [place] injection 01 :01 FOR Medical PROCEDURE Branch USE, 1 dose, Starting 08/21/19 at 1811, Until 08/21/19 at 1811, Routine FENTanyl PF 2019- 2020- No Slow IV Un michael (SUBLIMAZE 08-22 Push, ity of (PF)) 00:08: 00:08 TITRATE - [place] injection 29 :29 FOR Medical PROCEDURE Branch [...] 08/21/19 at 0900, Until Discontinu ed, Routine
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 Restricted medication : JENIFFER MORAN [...] on [facility] (NOVOLOG) + 08/20/19 at [facility] Fsbg 2115, Testing Until Discontinu ed, Routine metoprolol 2020-0 2020- No 25mg 25 mg, Univ ers tartrate 08-21 Oral, Q6H, ity of (LOPRESSOR) 03:15: 15:29 First dose [place] tablet 25 00 :06 on [facility] mg 08/20/19 at Branch 5, Until Discontinu ed, Routine ALPRAZolam 2020-0 Yes .5mg 0.5 mg, [facility] ers (XANAX) 08-21 Oral, ity [...] IV Push, ity of mg 03:06: Q2HPRN, [place] 08 Starting Medical [facility] 08/20/19 Branch at [...] 22 :37 Starting Medica l 25 mL [facility] 08/20/19 Branch at 2104, Until Tu09/01/19 at 1340, KATHY, Blood Glucose < or = 70 mg/dL and patient is unable to swallow or has mental status changes. ondansetron 2019-0 2020- No 4mg 4 mg, Slow Univers (ZOFRAN 08-21 IV Push, ity of (PF)) 01:20: 01:23 ONCE, 1 [place] injection 4 00 :00 dose, [facility] Med ical mg 08/20/19 at Branch 1930, Routine ondansetron 2019- 2020- No 4mg 4 mg, Slow Univers (ZOFRAN 08-20 IV Push, ity of (PF)) 22:00: 19:29 Q6HPRN, [place] injection 4 19 :34 Starting Medi lizzy mg [facility] 08/20/19 Branch at 1600, Until 09/01/19 at 1329, Routine, Nausea and Vomiting (N/V) ALPRAZolam 2020- No .5mg 0.5 mg, Uni vers (XANAX) 08-20 Oral, ity of tablet 0.5 07:00: 06:45 ONCE, 1 [place] mg 00 :00 dose, [facility] 08/20/19 at Branch 0100, Routine atorvastati 2020- No 40mg 40 mg, Uni vers n (LIPITOR) 08-20 Oral, QHS, i ty of tablet 40 03:00: 03:12 First dose [place] mg 00 :55 on [facility] 08/19/19 at Branch 2100, Until Discontinu ed, Routine KCL 2019- 2020- No 40meq 40 mEq, Univers (KLOR-CON 08-20 Oral, BID, ity of M20) tablet 02:00: 15:08 First dose [place] 40 mEq 00 :22 on [facility] 08/19/19 at Branch 2000, Until Discontinu ed, Routine KCL 2020-0 2020- No 40meq 40 mEq, Univers (KLOR-CON 08-19 Oral, ONCE ity of M20) tablet 15:30: 15:02 NOW, 1 [place] 40 mEq 00 :00 dose, [facility] 08/19/19 at Branch 0930, Routine clopidogreL 2019- 2020- No 75mg 75 mg, Uni vers (PLAVIX) 08-19 Oral, ity of tablet 75 15:00: 03:12 DAILY, [place] mg 00 :55 First dose Medical on [facility] 08/19/19 at 0900, Until Discontinu ed, Routine aspirin 2019- 2020- No 81mg 81 mg, Univers chewable 08-19 Oral, ity of tablet 81 15:00: 03:12 DAILY, [place] mg 00 :55 First dose Medical on Sat Branch 08/19/19 at 0900, Until Discontinu ed, Routine enoxaparin 2020-0 2020- No 40mg 40 mg, [facility] ers (LOVENOX) 08-19-07 Subcutaneo ity of injection 15:00: 04:24 us, DAILY, [place] 40 mg 00 :57 First dose Medical on Sat Branch 08/19/19 at 0900, Until Discontinu ed, Routine ipratropium 2020-0 2020- No 3mL 3 mL, [facility] ers -albuterol 08-19 Inhalation it y of (DUONEB) 14:00: 14:43 , QID, [place] 0.5 mg-3 00 :46 First dose Medic al mg(2.5 mg on Sat base)/3 mL 08/19/19 at nebulizer 0800, solution 3 Until mL Discontinu ed, Routine insulin 2020-0 Yes 12U 12 Units, [facility] -05 Subcutaneo ity of human 13:30: us, BIDAC, [place] (HUMULIN R) 00 First dose Me dical injection on Sat Branch 12 Units 08/19/19 at 0730, Until Discontinu ed, Routine ipratropium 2019-0 2020- No 3mL 3 mL, [facility] ers -albuterol 08-19 Inhalation it y of (DUONEB) 10:30: 09:31 , ONCE, 1 [place] 0.5 mg-3 00 :00 dose, Sat Medica l mg(2.5 mg 08/19/19 at Bran h base)/3 mL 0430, nebulizer Routine solution 3 mL insulin 2020-0 2020- No 7U 7 Units, [facility] regular -11 13-05 Subcutaneo ity o f human 05:30: 05:28 us, ONCE, [place] (HUMULIN R) 00 :00 1 dose, Medic al injection 7 Sat08/18/19 Br anch Units at 2330, Routine furosemide 2020-0 2020- No 40mg 40 mg, [facility] ers (LASIX) 08-19- Slow IV ity of injection 04:00: 15:29 Push, Q8H, [place] 40 mg 00 :06 First dose Medical on Sat Branch 08/18/19 at 2200, Until Discontinu ed, Routine spironolact 2019-0 2020- No 50mg 50 mg, Uni vers one 08-19 Oral, BID, ity of (ALDACTONE) 04:00: 03:12 First dose [place] tablet 50 00 :55 on Medical mg 08/18/19 at Branch 2200, Until Discontinu ed, Routine Sliding 2019- 2020- No Subcutaneo Uni vers Scale 08-19 us, AC+HS, ity of Insulin-Reg 03:00: 03:12 First dose [place] ular + Fsbg 00 :55 on [facility] Medica l Testing 08/18/19 at Branch 2100, Until Discontinu ed, Routine insulin 2019- 2020- No 20U 20 Units, [facility] ers glargine 08-19 Subcutaneo ity of (LANTUS 02:00: 14:43 , BID, [place] U-100) 00 :46 First dose Medical injection on [facility] Branch 20 Units 08/18/19 at 2000, Until Discontinu ed metoprolol 2019- No 50mg 50 mg, [facility] ers succinate 08-19 Oral, BID, ity of XL (TOPROL 02:00: 03:12 First dose [place] XL) tablet 00 :55 on [facility] Medical 50 mg 08/18/19 at Branch 2000, Until Discontinu ed nicotine 2019-0 2020- No 1{patch 1 Patch, U nivers (NICODERM) 08-19 } Topical, ity of 21 mg/24 hr 00:45: 03:12 Administer [place] patch 1 00 :55 over 24 Medical Patch Hours, Branch Q24H, First dose on Sat08/18/19 at 1845, Until Discontinu ed, Routine furosemide 2019-0 2020- No 40mg 40 mg, IV U nivers (LASIX) 08-18 02 Push, ity of injection 23:30: 22:38 ONCE, 1 [place] 40 mg 00 :00 dose, [facility] Medical 08/18/19 at Branch 1730, KATHY acetaminoph 2019-0 Yes 650mg 650 mg, Un michael en 204 Oral, ity of (TYLENOL) 22:56: Q6HPRN, [place] tablet 650 29 Starting Medic al mg [facility] 08/18/19 Branch at 1656, Until Discontinu ed, Routine, Pain (scale 1-3) acetaminoph 2018-07 2020- No [id number] 1{tbl} Take 1 Univers en-codeine 0-09 02-04 tablet by ity of (TYLENOL-CO 00:00: 00:00 mouth [place] DEINE #3) 00 :00 every 4 Medical 300-30 mg (four) Branch tablet hours as needed for Pain (scale 4-6) or Pain (scale 7-10). ferrous Yes [id number] 325mg Take 1 Un michael sulfate 8-31 tablet by ity of (FERROUSUL) 00:00: mouth 3 You as 325 mg (65 00 (three) Medica l mg iron) times Branch tablet daily with meals. ferrous Yes [id number] 325mg Take 1 Un m[place] sulfate 8-31 tablet by ity of (FERROUSUL) 00:00: mouth 3 You as 325 mg (65 00 (three) Medica l mg iron) times Branch tablet daily with meals. ferrous Yes [id number] 325mg Take 1 Un michael sulfate 8-31 tablet by ity of (FERROUSUL) 00:00: mouth 3 You as 325 mg (65 00 (three) Medica l mg iron) times Branch tablet daily with meals. ferrous Yes [id number] 325mg Take 1 Un michael sulfate 8-31 tablet by ity of (FERROUSUL) 00:00: mouth 3 You as 325 mg (65 00 (three) Medica l mg iron) times Branch tablet daily with meals. ferrous Yes [id number] 325mg Take 1 Un michael sulfate 8-31 tablet by ity of (FERROUSUL) 00:00: mouth 3 [place] 325 mg (65 00 (three) Medica l mg iron) times Branch tablet daily with meals. ferrous 0 Yes [id number] 325mg Take 1 Un [facility] sulfate 8-31 tablet by ity of (FERROUSUL) 00:00: mouth 3 [place] as 325 mg (65 00 (three) Medica l mg iron) times Branch tablet daily with meals. ferrous Yes [id number] 325mg Take 1 Un michael sulfate 8-31 tablet by ity of (FERROUSUL) 00:00: mouth 3 [place] as 325 mg (65 00 (three) Medica l mg iron) times Branch tablet daily with meals. ferrous 2018- Yes [id number] 325mg Take 1 Un michael sulfate 8-31 tablet by ity of (FERROUSUL) 00:00: mouth 3 [place] 325 mg (65 00 (three) Medica l mg iron) times Branch tablet daily with meals. ferrous 2018-0 Yes [id number] 325mg Take 1 Un michael sulfate 8-31 tablet by ity of (FERROUSUL) 00:00: mouth 3 [place] 325 mg (65 00 (three) Medica l mg iron) times Branch tablet daily with meals. ferrous 2018-0 Yes [id number] 325mg Take 1 Un michael sulfate 8-31 tablet by ity of (FERROUSUL) 00:00: mouth 3 [place] as 325 mg (65 00 (three) Medica l mg iron) times Branch tablet daily with meals. ferrous 2017- Yes [id number] 325mg Take 1 Un michael sulfate 8-31 tablet by ity of (FERROUSUL) 00:00: mouth 3 [place] 325 mg (65 00 (three) Medica l mg iron) times Branch tablet daily with meals. ferrous 2020- No [id number] 325mg Take 1 U nivers sulfate 8-31 [...] Units ity of human 00:00: under the [place] (HUMULIN R 00 skin 2 Medical U-100) [...] Units ity of human 00:00: under the [place] (HUMULIN R 00 skin 2 Medical U-100) [...] Units ity of human 00:00: under the [place] (HUMULIN R 00 skin 2 Medical U-100) [...] Units ity of human 00:00: under the [place] (HUMULIN R 00 skin 2 Medical U-100) 100 (two) Branch unit/mL times injection daily before breakfast and dinner. insulin 2018-0 Yes 12U inject 12 Unive rs regular 3-14 Units ity of human 00:00: under the [place] (HUMULIN R 00 skin 2 Medical U-100) 100 (two) Branch unit/mL times injection daily before breakfast and dinner. insulin 2018-0 Yes 12U inject 12 Unive rs regular 3-14 Units ity of human 00:00: under the [place] (HUMULIN R 00 skin 2 Medical U-100) 100 (two) Branch unit/mL times injection daily before breakfast and dinner. insulin 2018-0 Yes 12U inject 12 Unive rs regular 3-14 Units ity of human 00:00: under the [place] (HUMULIN R 00 skin 2 Medical U-100) [...] Filled Immunization Date Status Comments [facility] e Immunization Name Name TDAP (ADACEL) 2019-09-18 Completed University of VACCINE 00:00:00 [facility] Branch TDAP (ADACEL) 2019-09-18 Completed University of VACCINE 00:00:00 [facility] TDAP (ADACEL) 2019-09-18 Completed University of VACCINE 00:00:00 [facility] TDAP (ADACEL) 2019-09-18 Completed University of VACCINE 00:00:00 [facility] TDAP (ADACEL) 2019-09-18 Completed University of VACCINE 00:00:00 [facility] TDAP (ADACEL) 2019-09-18 Completed University of VACCINE 00:00:00 [facility] TDAP (ADACEL) 2019-09-18 Completed University of VACCINE 00:00:00 [facility] TDAP (ADACEL) 2019-09-18 Completed University of VACCINE 00:00:00 [place] [facility] TDAP (ADACEL) 2019-09-18 Completed University of VACCINE 00:00:00 [facility] TDAP (ADACEL) 2019-09-18 Completed University of VACCINE 00:00:00 [facility] TDAP (ADACEL) 2019-09-18 Completed University of VACCINE 00:00:00 [place] [facility] TDAP (ADACEL) 2019-09-18 Completed University of VACCINE 00:00:00 [facility] TDAP (ADACEL) 2019-09-18 Completed University of VACCINE 00:00:00 [facility] TDAP (ADACEL) 2019-09-18 Completed University of VACCINE 00:00:00 [facility] TDAP (ADACEL) 2019-09-18 Completed University of VACCINE 00:00:00 [facility] TDAP (ADACEL) 2019-09-18 Completed University of VACCINE 00:00:00 [facility] TDAP (ADACEL) 2019-09-18 Completed University of VACCINE 00:00:00 [facility] TDAP (ADACEL) 2019-09-18 Completed University of VACCINE 00:00:00 [facility] TDAP (ADACEL) 2019-09-18 Completed University of VACCINE 00:00:00 [facility] TDAP (ADACEL) 2019-09-18 Completed University of VACCINE 00:00:00 [facility] TDAP (ADACEL) 2019-09-18 Completed University of VACCINE 00:00:00 [facility] TDAP (ADACEL) 2019-09-18 Completed University of VACCINE 00:00:00 [facility] TDAP (ADACEL) 2019-09-18 Completed University of VACCINE 00:00:00 [facility] TDAP (ADACEL) 2019-09-18 Completed University of VACCINE 00:00:00 [facility] TDAP (ADACEL) 2019-09-18 Completed University of VACCINE 00:00:00 [facility] TDAP (ADACEL) 2019-09-18 Completed University of VACCINE 00:00:00 [facility] TDAP (ADACEL) 2019-09-18 Completed University of VACCINE 00:00:00 [facility] TDAP (ADACEL) 2019-09-18 Completed University of VACCINE 00:00:00 [facility] TDAP (ADACEL) 2019-09-18 Completed University of VACCINE 00:00:00 [facility] TDAP (ADACEL) 2019-09-18 Completed University of VACCINE 00:00:00 [facility] TDAP (ADACEL) 2019-09-18 Completed University of VACCINE 00:00:00 [facility] TDAP (ADACEL) 2019-09-18 Completed University of VACCINE 00:00:00 [facility] TDAP (ADACEL) 2019-09-18 Completed University of VACCINE 00:00:00 [facility] TDAP (ADACEL) 2019-09-18 Completed University of VACCINE 00:00:00 [facility] TDAP (ADACEL) 2019-09-18 Completed University of VACCINE 00:00:00 [facility] TDAP (ADACEL) 2019-09-18 Completed University of VACCINE 00:00:00 [place] [facility] TDAP (ADACEL) 2019-09-18 Completed University of VACCINE 00:00:00 [place] [facility] TDAP (ADACEL) 2019-09-18 Completed University of VACCINE 00:00:00 [place] [facility] TDAP (ADACEL) 2019-09-18 Completed University of VACCINE 00:00:00 [facility] TDAP (ADACEL) 2019-09-18 Completed University of VACCINE 00:00:00 [place] [facility] TDAP (ADACEL) 2019-09-18 Completed University of VACCINE 00:00:00 [place] [facility] TDAP (ADACEL) 2019-09-18 Completed University of VACCINE 00:00:00 [facility] TDAP (ADACEL) 2019-09-18 Completed University of VACCINE 00:00:00 [facility] TDAP (ADACEL) 2019-09-18 Completed University of VACCINE 00:00:00 [facility] TDAP (ADACEL) 2019-09-18 Completed University of VACCINE 00:00:00 [facility] TDAP (ADACEL) 2019-09-18 Completed University of VACCINE 00:00:00 [facility] TDAP (ADACEL) 2019-09-18 Completed University of VACCINE 00:00:00 [facility] TDAP (ADACEL) 2019-09-18 Completed University of VACCINE 00:00:00 [facility] TDAP (ADACEL) 2019-09-18 Completed University of VACCINE 00:00:00 [facility] TDAP (ADACEL) 2019-09-18 Completed University of VACCINE 00:00:00 [facility] TDAP (ADACEL) 2019-09-18 Completed University of VACCINE 00:00:00 [place] [facility] TDAP (ADACEL) 2019-09-18 Completed University of VACCINE 00:00:00 [facility] TDAP (ADACEL) 2019-09-18 Completed University of VACCINE 00:00:00 [place] [facility] TDAP (ADACEL) 2019-09-18 Completed University of VACCINE 00:00:00 [place] [facility] TDAP (ADACEL) 2019-09-18 Completed University of VACCINE 00:00:00 [place] [facility] TDAP (ADACEL) 2019-09-18 Completed University of VACCINE 00:00:00 [place] [facility] TDAP (ADACEL) 2019-09-18 Completed University of VACCINE 00:00:00 [facility] TDAP (ADACEL) 2019-09-18 Completed University of VACCINE 00:00:00 [facility] TDAP (ADACEL) 2019-09-18 Completed University of VACCINE 00:00:00 [facility] Pneumococcal 2017-09-23 Completed University o f Polysaccharide, [...] Comments Source Systolic blood 2020-11-09 144 mm[Hg] [facility] pressure 13:12:00 [facility] Diastolic blood 2020-11-09 58 mm[Hg] [place] o f pressure 13:12:00 [facility] Heart rate 2020-11-09 61 /min University of 13:12: [facility] Respiratory rate 2020-11-09 18 /min University of ::00 [facility] Oxygen saturation 2020-11-09 100 /min University of in Arterial blood 13:12: [place] Medi lizzy by Pulse oximetry Branch Body temperature 2020-11-09 36.89 [place] University of 09:00:00 [facility] Body height 2020-11-07 190.5 cm University of 19:10: [place] [facility] Body weight 2020-11-07 72.576 kg University of 19:10: [facility] BMI 2020-11-07 20.00 kg/m2 University of 19:10: [facility] Systolic blood 2020-05-03 157 mm[Hg] University of pressure 21:02:00 [facility] Diastolic blood 2020-05-03 82 mm[Hg] University o f pressure 21:02:00 [facility] Heart rate 2020-05-03 59 /min University of 21:02:00 [facility] Branch Respiratory rate 2020-05-03 18 /min University of 21:02:00 [facility] Oxygen saturation 2020-05-03 100 /min University of in Arterial blood 21:02:00 [facility] lizzy by Pulse oximetry Branch Body temperature 2020-05-03 37 Bernadine University of 18:42:00 [facility] Body height 2020-05-03 182.9 cm University of 18:42:00 [facility] Body weight 2020-05-03 72.576 kg University of 18:42:00 [facility] BMI 2020-05-03 21.70 kg/m2 University of 18:42:00 [facility] Systolic blood 2019-10-28 152 mm[Hg] University of pressure 12:52:00 [facility] Diastolic blood 2019-10-28 77 mm[Hg] University o f pressure 12:52:00 [facility] Heart rate 2019-10-28 69 /min University of 12:52:00 [facility] Body temperature 2019-10-28 36.78 Bernadine University of 12:52:00 [facility] Respiratory rate 2019-10-28 20 /min University of 12:52:00 [facility] Oxygen saturation 2019-10-28 97 /min University of in Arterial blood 12:52:00 [place] [facility] lizzy by Pulse oximetry Branch Body height 2019-10-27 182.9 cm University of 06:06:00 [facility] Body weight 2019-10-27 74.98 kg University of 06:06:00 [facility] BMI 2019-10-27 22.42 kg/m2 University of 06:06:00 [facility] Systolic blood 2019-10-12 147 mm[Hg] University of pressure 18:07:00 [facility] Diastolic blood 2019-10-12 73 mm[Hg] University o f pressure 18:07:00 [facility] Heart rate 2019-10-12 80 /min University of 18:07:00 [facility] Body temperature 2019-10-12 35.22 Bernadine University of 18:07:00 [facility] Respiratory rate 2019-10-12 16 /min University of 18:07:00 [facility] Body weight 2019-10-12 75.751 kg University of 18:07:00 [facility] BMI 2019-10-12 22.65 kg/m2 University of 18:07:00 [facility] Oxygen saturation 2019-10-12 98 /min University of in Arterial blood 18:07:00 [facility] by Pulse oximetry Branch Systolic blood 2019-10-01 136 mm[Hg] University of pressure 21:37:00 [facility] Diastolic blood 2019-10-01 59 mm[Hg] University o f pressure 21:37:00 [facility] Heart rate 2019-10-01 78 /min University of 21:37:00 [facility] Body temperature 2019-10-01 36.83 Bernadine University of 21:37:00 [facility] Respiratory rate 2019-10-01 18 /min University of 21:37:00 [facility] Oxygen saturation 2019-10-01 91 /min [facility] in Arterial blood 21:37:00 [facility] by Pulse oximetry Branch Body height 2019-09-30 182.9 cm University of 00:30:00 [facility] Body weight 2019-09-30 77.8 kg University of 00:30:00 [facility] BMI 2019-09-30 23.26 kg/m2 University of 00:30:00 [facility] Systolic blood 2019-09-28 142 mm[Hg] University of pressure 17:50:00 [facility] Diastolic blood 2019-09-28 68 mm[Hg] University o f pressure 17:50:00 [facility] Heart rate 2019-09-28 77 /min University of 17:50:00 [facility] Body temperature 2019-09-28 36.89 Bernadine University of 17:50:00 [facility] Respiratory rate 2019-09-28 16 /min University of 17:50:00 [facility] Body weight 2019-09-28 72.213 kg University of 17:50:00 [facility] BMI 2019-09-28 21.59 kg/m2 University of 17:50:00 [facility] Oxygen saturation 2019-09-28 99 /min University of in Arterial blood 17:50:00 [facility] lizzy by Pulse oximetry Branch Systolic blood 2019-09-21 132 mm[Hg] University of pressure 18:11:00 [facility] Diastolic blood 2019-09-21 70 mm[Hg] University o f pressure 18:11:00 [facility] Heart rate 2019-09-21 79 /min University of 18:11:00 [facility] Body temperature 2019-09-21 36.33 Bernadine University of 18:11:00 [facility] Respiratory rate 2019-09-21 16 /min University of 18:11:00 [facility] Body weight 2019-09-21 71.668 kg University of 18:11:00 [facility] BMI 2019-09-21 21.43 kg/m2 University of 18:11:00 [facility] Oxygen saturation 2019-09-21 97 /min University of in Arterial blood 18:11:00 [facility] lizzy by Pulse oximetry Branch Systolic blood 2019-09-19 162 mm[Hg] University of pressure 02:30:00 [facility] Diastolic blood 2019-09-19 76 mm[Hg] University o f pressure 02:30:00 [facility] Heart rate 2019-09-19 81 /min University of 02:30:00 [facility] Respiratory rate 2019-09-19 19 /min University of 02:30:00 [facility] Oxygen saturation 2019-09-19 96 /min University of in Arterial blood 02:30:00 [facility] lizzy by Pulse oximetry Branch Body temperature 2019-09-19 37.28 Bernadine University of 00:05:00 [facility] Body height 2019-09-19 182.9 cm University of 00:05:00 [facility] Body weight 2019-09-19 73.483 kg University of 00:05:00 [facility] BMI 2019-09-19 21.97 kg/m2 University of 00:05:00 [facility] Systolic blood 2019-09-15 128 mm[Hg] University of pressure 18:00:00 [facility] Diastolic blood 2019-09-15 66 mm[Hg] University o f pressure 18:00:00 [facility] Heart rate 2019-09-15 77 /min University of 18:00:00 [facility] Body temperature 2019-09-15 36.94 Bernadine University of 18:00:00 [facility] Respiratory rate 2019-09-15 17 /min University of 18:00:00 [facility] Oxygen saturation 2019-09-15 99 /min University of in Arterial blood 18:00:00 [place] [facility] by Pulse oximetry Branch Body weight 2019-09-12 80 kg University of 15:21:00 [facility] BMI 2019-09-12 23.92 kg/m2 University of 15:21:00 [facility] Systolic blood 2019-09-07 135 mm[Hg] University of pressure 18:00:00 [facility] Diastolic blood 2019-09-07 75 mm[Hg] University o f pressure 18:00:00 [facility] Heart rate 2019-09-07 70 /min University of 18:00:00 [facility] Respiratory rate 2019-09-07 23 /min University of 18:00:00 [facility] Oxygen saturation 2019-09-07 95 /min University of in Arterial blood 18:00:00 [facility] lizzy by Pulse oximetry Branch Body temperature 2019-09-07 36.83 Bernadine University of 14:00:00 [facility] Body height 2019-09-04 182.9 cm University of 06:00:00 [facility] Body weight 2019-09-04 73.2 kg University of 06:00:00 [facility] BMI 2019-09-04 21.89 kg/m2 University of 06:00:00 [facility] Systolic blood 2020-11-09 144 mm[Hg] University of pressure 13:12:00 [facility] Diastolic blood 2020-11-09 58 mm[Hg] University o f pressure 13:12:00 [facility] Heart rate 2020-11-09 61 /min University of 13:12:00 [facility] Respiratory rate 2020-11-09 18 /min University of 13:12:00 [facility] Oxygen saturation 2020-11-09 100 /min University of in Arterial blood 13:12:00 [place] [facility] by Pulse oximetry Branch Body temperature 2020-11-09 36.89 Bernadine University of 09:00:00 [facility] Body height 2020-11-07 190.5 cm University of 19:10:00 [facility] Body weight 2020-11-07 72.576 kg University of 19:10:00 [facility] BMI 2020-11-07 20.00 kg/m2 University of 19:10:00 [facility] Heart rate 2020-11-06 69 /min University of 16:48:00 [facility] Respiratory rate 2020-11-06 18 /min University of 16:48:00 [facility] Oxygen saturation 2020-11-06 99 /min [facility] in Arterial blood 16:48:00 [facility] by Pulse oximetry [place] Systolic blood 2020-11-06 122 mm[Hg] [place] of pressure 16:38:00 [facility] Diastolic blood 2020-11-06 57 mm[Hg] University o f pressure 16:38:00 [facility] Body temperature 2020-11-06 37.17 Bernadine [facility] 16:38:00 [facility] Body weight 2020-11-03 73 kg University of :00:00 [facility] BMI 2020-11-03 20.12 kg/m2 University of 01:00:00 [facility] Body height 2020-10-22 190.5 cm [facility] 16:30:00 [facility] Systolic blood 2019-09-29 155 mm[Hg] Location: [facility]; [facility] 16:23:00 Position: [place] [facility] Diastolic blood 2019-09-29 68 mm[Hg] Location: [facility] 16:23:00 Position: [place] [facility] Body height 2019-09-29 72 [in_us] University of 16:23:00 [place] [facility] Weight 2019-09-29 163 [lb_av] University of 16:23:00 [place] [facility] Body mass index 2019-09-29 22.11 kg/m2 University o f (BMI) [Ratio] 16:23:00 [place] [facility] Body temperature 2019-09-29 97.9 [degF] Method: Oral [facility] 16:23:00 [place] [facility] Heart Rate 2019-09-29 75 /min [place] of 16:23:00 [place] [facility] Procedures Procedure Date / Time Performing Source Performed Clinician DME/SUPPLY JUSTIFICATION 2020-12-16 Doctor [facility] of 05:01:00 Unassigned, No [facility] DNR 2020-11-16 [facility] of 05:01:00 Unassigned, No [facility] POCT GLUCOSE (AUTOMATED) 2020-11-09 David Howell sity of 16:50:00 J [facility] POCT GLUCOSE (AUTOMATED) 2020-11-09 David Howell sity of 16:50:00 J [facility] CBC WITHOUT DIFF 2020-11-09 [facility] of 10:56:00 [facility] BASIC METABOLIC PANEL (NA, K, CL, 2020-11-09 [facility] of CO2, GLUCOSE, BUN, CREATININE, CA) 10:56:00 [facility] MAGNESIUM 2020-11-09 [facility] of 10:56:00 [facility] MAGNESIUM 2020-11-09 [facility] of 10:56:00 [facility] BASIC METABOLIC PANEL (NA, K, CL, 2020-11-09 [facility] of CO2, GLUCOSE, BUN, CREATININE, CA) 10:56:00 [facility] CBC WITHOUT DIFF 2020-11-09 [facility] of 10:56:00 [facility] POCT GLUCOSE (AUTOMATED) 2020-11-09 David Howell sity of 10:55:00 J [facility] POCT GLUCOSE (AUTOMATED) 2020-11-09 David Howell sity of 10:55:00 J [facility] POCT GLUCOSE (AUTOMATED) 2020-11-09 David Howell sity of 05:23:00 J [facility] POCT GLUCOSE (AUTOMATED) 2020-11-09 David Howell sity of 05:23:00 J [facility] POCT GLUCOSE (AUTOMATED) 2020-11-08 David Howell sity of 23:22:00 J [facility] POCT GLUCOSE (AUTOMATED) 2020-11-08 David Howell sity of 23:22:00 J [facility] POCT GLUCOSE (AUTOMATED) 2020-11-08 David Howell sity of 15:47:00 J [facility] POCT GLUCOSE (AUTOMATED) 2020-11-08 David Howeller sity of 15:47:00 J [facility] POCT GLUCOSE (AUTOMATED) 2020-11-08 David Howell Univer sity of 11:15:00 J [facility] POCT GLUCOSE (AUTOMATED) 2020-11-08 David Howell sity of 11:15:00 J [facility] CBC WITH DIFF 2020-11-08 [facility] of 09:53:00 [facility] BASIC METABOLIC PANEL (NA, K, CL, 2020-11-08 [facility] of CO2, GLUCOSE, BUN, CREATININE, CA) 09:53:00 [facility] BASIC METABOLIC PANEL (NA, K, CL, 2020-11-08 [facility] of CO2, GLUCOSE, BUN, CREATININE, CA) 09:53:00 [facility] CBC WITH DIFF 2020-11-08 [facility] of 09:53:00 [facility] POCT GLUCOSE (AUTOMATED) 2020-11-08 David Howell Univer sity of 05:42:00 J [facility] POCT GLUCOSE (AUTOMATED) 2020-11-08 David Howell Univer sity of 05:42:00 J [facility] POCT GLUCOSE (AUTOMATED) 2020-11-07 David Howell Univer sity of 22:01:00 [facility] POCT GLUCOSE (AUTOMATED) 2020-11-07 David Howell Univer sity of 22:01:00 J [facility] POCT GLUCOSE (AUTOMATED) 2020-11-07 David Howell Univer sity of 13:13:00 J [facility] POCT GLUCOSE (AUTOMATED) 2020-11-07 David Howell Univer sity of 13:13:00 J [facility] POCT GLUCOSE (AUTOMATED) 2020-11-07 David Howell Univer sity of 10:26:00 [facility] POCT GLUCOSE (AUTOMATED) 2020-11-07 David Howeller sity of 10:26:00 J [facility] CBC WITHOUT DIFF 2020-11-07 [facility] of 09:49:00 [facility] BASIC METABOLIC PANEL (NA, K, CL, 2020-11-07 [facility] of CO2, GLUCOSE, BUN, CREATININE, CA) 09:49:00 [facility] MAGNESIUM 2020-11-07 [facility] of 09:49:00 [facility] MAGNESIUM 2020-11-07 [facility] of 09:49:00 [facility] BASIC METABOLIC PANEL (NA, K, CL, 2020-11-07 [facility] of CO2, GLUCOSE, BUN, CREATININE, CA) 09:49:00 [facility] CBC WITHOUT DIFF 2020-11-07 [facility] of 09:49:00 [facility] POCT GLUCOSE (AUTOMATED) 2020-11-07 David Howell Univer sity of 05:13:00 J [facility] POCT GLUCOSE (AUTOMATED) 2020-11-07 David Howell Univer sity of 05:13:00 [facility] POCT GLUCOSE (AUTOMATED) 2020-11-06 David Howell Univer sity of 22:48:00 J [facility] POCT GLUCOSE (AUTOMATED) 2020-11-06 David Howell Univer sity of 22:48:00 J [facility] POCT GLUCOSE (AUTOMATED) 2020-11-06 David Howell Univer sity of 16:49:00 J [facility] POCT GLUCOSE (AUTOMATED) 2020-11-06 David Howell Univer sity of 16:49:00 J [facility] POCT GLUCOSE (AUTOMATED) 2020-11-06 David Howell Univer sity of 11:11:00 [facility] POCT GLUCOSE (AUTOMATED) 2020-11-06 David Howell Univer sity of 11:11:00 J [facility] CBC WITHOUT DIFF 2020-11-06 [facility] of 10:42:00 [facility] BASIC METABOLIC PANEL (NA, K, CL, 2020-11-06 [facility] of CO2, GLUCOSE, BUN, CREATININE, CA) 10:42:00 [facility] MAGNESIUM 2020-11-06 [facility] of 10:42:00 [facility] MAGNESIUM 2020-11-06 [facility] of 10:42:00 [facility] BASIC METABOLIC PANEL (NA, K, CL, 2020-11-06 [facility] of CO2, GLUCOSE, BUN, CREATININE, CA) 10:42:00 [facility] CBC WITHOUT DIFF 2020-11-06 [facility] of 10:42:00 [facility] POCT GLUCOSE (AUTOMATED) 2020-11-06 David Howell sity of 05:07:00 J [facility] POCT GLUCOSE (AUTOMATED) 2020-11-06 David Howell sity of 05:07:00 J [facility] POCT GLUCOSE (AUTOMATED) 2020-11-05 David Howell sity of 18:40:00 J [facility] POCT GLUCOSE (AUTOMATED) 2020-11-05 David Howell [facility] sity of 18:40:00 [facility] URINE CULTURE 2020-11-05 [facility] of 14:56:00 [facility] URINE CULTURE 2020-11-05 [facility] of 14:56:00 [facility] BLOOD CULTURE SCREEN 2020-11-05 [facility] of 14:54:00 [facility] BLOOD CULTURE SCREEN 2020-11-05 [facility] of 14:54:00 [facility] BLOOD CULTURE SCREEN 2020-11-05 [facility] of 14:44:00 [facility] BLOOD CULTURE SCREEN 2020-11-05 [facility] of 14:44:00 [facility] XR CHEST 1 VW 2020-11-05 [facility] of 12:03:32 [facility] XR CHEST 1 VW 2020-11-05 [facility] of 12:03:32 [facility] POCT GLUCOSE (AUTOMATED) 2020-11-05 David Howell sity of 11:13:00 J [facility] POCT GLUCOSE (AUTOMATED) 2020-11-05 David Howell sity of 11:13:00 [facility] CBC WITHOUT DIFF 2020-11-05 [facility] of 09:31:00 [facility] BASIC METABOLIC PANEL (NA, K, CL, 2020-11-05 [facility] of CO2, GLUCOSE, BUN, CREATININE, CA) 09:31:00 [facility] MAGNESIUM 2020-11-05 [facility] of 09:31:00 [facility] MAGNESIUM 2020-11-05 [facility] of 09:31:00 [facility] BASIC METABOLIC PANEL (NA, K, CL, 2020-11-05 [facility] of CO2, GLUCOSE, BUN, CREATININE, CA) 09:31:00 [facility] CBC WITHOUT DIFF 2020-11-05 [facility] of 09:31:00 [facility] POCT GLUCOSE (AUTOMATED) 2020-11-05 David Howell sity of 04:54:00 J [facility] POCT GLUCOSE (AUTOMATED) 2020-11-05 David Howell sity of 04:54:00 J [facility] POCT GLUCOSE (AUTOMATED) 2020-11-04 David Howell sity of 22:58:00 J [facility] POCT GLUCOSE (AUTOMATED) 2020-11-04 David Howell sity of 22:58:00 J [facility] XR KUB 2020-11-04 [facility] of 21:35:45 [facility] XR KUB 2020-11-04 [facility] of 21:35:45 [facility] POCT GLUCOSE (AUTOMATED) 2020-11-04 David Howell sity of 16:51:00 J [facility] POCT GLUCOSE (AUTOMATED) 2020-11-04 David Howell sity of 16:51:00 J [facility] PROTHROMBIN TIME / INR 2020-11-04 [facility] y of 15:55:00 [facility] PROTHROMBIN TIME / INR 2020-11-04 [facility] y of 15:55:00 [facility] POCT GLUCOSE (AUTOMATED) 2020-11-04 David Howell sity of 15:21:00 J [facility] POCT GLUCOSE (AUTOMATED) 2020-11-04 David Howell sity of 15:21:00 J [facility] CBC WITHOUT DIFF 2020-11-04 [facility] of 10:04:00 [facility] BASIC METABOLIC PANEL (NA, K, CL, 2020-11-04 [facility] of CO2, GLUCOSE, BUN, CREATININE, CA) 10:04:00 [facility] MAGNESIUM 2020-11-04 [facility] of 10:04:00 [facility] MAGNESIUM 2020-11-04 [facility] of 10:04:00 [facility] BASIC METABOLIC PANEL (NA, K, CL, 2020-11-04 [facility] of CO2, GLUCOSE, BUN, CREATININE, CA) 10:04:00 [facility] CBC WITHOUT DIFF 2020-11-04 [facility] of 10:04:00 [facility] POCT GLUCOSE (AUTOMATED) 2020-11-03 [facility] of 16:54:00 [facility] POCT GLUCOSE (AUTOMATED) 2020-11-03 [facility] of 16:54:00 [facility] BASIC METABOLIC PANEL (NA, K, CL, 2020-11-03 Ele [facility] [place] of CO2, GLUCOSE, BUN, CREATININE, CA) 12:53:00 [facility] MAGNESIUM 2020-11-03 Ele Cao [place] of 12:53:00 [facility] MAGNESIUM 2020-11-03 Ele Cao [place] of 12:53:00 [facility] BASIC METABOLIC PANEL (NA, K, CL, 2020-11-03 Ele Cao [place] of CO2, GLUCOSE, BUN, CREATININE, CA) 12:53:00 [facility] POCT GLUCOSE (AUTOMATED) 2020-11-03 [facility] of 12:47:00 [facility] POCT GLUCOSE (AUTOMATED) 2020-11-03 [facility] of 12:47:00 [facility] THYROID PEROXIDASE (TPO) AB 2020-11-03 Ele [facility] versity of 10:10:00 [facility] CBC WITH DIFF 2020-11-03 Ele Cao [place] of 10:10:00 [facility] CBC WITH DIFF 2020-11-03 Ele Cao of 10:10:00 [facility] THYROID PEROXIDASE (TPO) AB 2020-11-03 Ele Cao [facility] versity of 10:10:00 [facility] POCT GLUCOSE (AUTOMATED) 2020-11-03 [facility] of 10:09:00 [facility] POCT GLUCOSE (AUTOMATED) 2020-11-03 [facility] of 10:09:00 [facility] POCT GLUCOSE (AUTOMATED) 2020-11-03 [facility] of 04:38:00 [facility] POCT GLUCOSE (AUTOMATED) 2020-11-03 [facility] of 04:38:00 [facility] BASIC METABOLIC PANEL (NA, K, CL, 2020-11-03 Ele [facility] of CO2, GLUCOSE, BUN, CREATININE, CA) 02:22:00 [facility] MAGNESIUM 2020-11-03 Ele Cao [place] of 02:22:00 [facility] MAGNESIUM 2020-11-03 Ele Cao [place] of 02:22:00 [facility] BASIC METABOLIC PANEL (NA, K, CL, 2020-11-03 Ele [facility]o [place] of CO2, GLUCOSE, BUN, CREATININE, CA) 02:22:00 [facility] XR KUB 2020-11-02 lEe Cao [place] of 22:56:53 [facility] XR KUB 2020-11-02 Ele Cao [place] of 22:56:53 [facility] VITAMIN B6, PLASMA 2020-11-02 [facility] of 22:49:00 [facility] VITAMIN B6, PLASMA 2020-11-02 [facility] of 22:49:00 [facility] POCT GLUCOSE (AUTOMATED) 2020-11-02 [facility] of 22:20:00 [facility] POCT GLUCOSE (AUTOMATED) 2020-11-02 [facility] of 22:20:00 [facility] MENINGITIS/ENCEPHALITIS PANEL BY 2020-11-02 Ele [facility]o of PCR 20:45:00 [facility] CSF/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 SHUNT CULTURE 2020-11-02 Ele Cao [place] of 20:45:00 [facility] BODY FLUID MANUAL DIFF 2020-11-02 Ele Caoit y of 20:45:00 [facility] CEREBROSPINAL FLUID GLUCOSE 2020-11-02 [facility] ersity of 20:45:00 [facility] CEREBROSPINAL FLUID PROTEIN 2020-11-02 [facility] ersity of 20:45:00 [facility] CSF CULTURE 2020-11-02 [facility] of 20:45:00 [facility] CEREBROSPINAL FLUID PROTEIN 2020-11-02 [facility] [facility] of 20:45:00 [facility] CEREBROSPINAL FLUID GLUCOSE 2020-11-02 [facility] ersity of 20:45:00 [facility] BODY FLUID DIRECT COUNT 2020-11-02 [facility] ty of 20:45:00 [facility] CSF/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 SHUNT CULTURE 2020-11-02 [facility] of 20:45:00 [facility] CSF CULTURE 2020-11-02 [facility] of 20:45:00 [facility] MENINGITIS/ENCEPHALITIS PANEL BY 2020-11-02 [facility] of PCR 20:45:00 [facility] BASIC METABOLIC PANEL (NA, K, CL, 2020-11-02 [facility] of CO2, GLUCOSE, BUN, CREATININE, CA) 17:39:00 [facility] MAGNESIUM 2020-11-02 [facility] of 17:39:00 [facility] MAGNESIUM 2020-11-02 [facility] of 17:39:00 [facility] BASIC METABOLIC PANEL (NA, K, CL, 2020-11-02 [facility] of CO2, GLUCOSE, BUN, CREATININE, CA) 17:39:00 [facility] POCT GLUCOSE (AUTOMATED) 2020-11-02 [facility] 16:28:00 [facility] POCT GLUCOSE (AUTOMATED) 2020-11-02 [facility] of 16:28:00 [facility] POCT GLUCOSE (AUTOMATED) 2020-11-02 [facility] of 12:37:00 [facility] POCT GLUCOSE (AUTOMATED) 2020-11-02 [facility] of 12:37:00 [facility] CBC WITH DIFF 2020-11-02 Ele [facility] [place] of 09:56:00 [facility] BASIC METABOLIC PANEL (NA, K, CL, 2020-[facility] CO2, GLUCOSE, BUN, CREATININE, CA) 09:56:00 [facility] VITAMIN B1 (THIAMINE), WHOLE BLOOD 2020-11-02 [facility] of 09:56:00 [facility] MAGNESIUM 2020-11-02 [facility] 09:56:00 [facility] MAGNESIUM 2020-11-02 [facility] 09:56:00 [facility] BASIC METABOLIC PANEL (NA, K, CL, 2020-11-02 [facility] of CO2, GLUCOSE, BUN, CREATININE, CA) 09:56:00 [facility] CBC WITH DIFF 2020-11-02 [facility] of 09:56:00 [facility] VITAMIN B1 (THIAMINE), WHOLE BLOOD 2020-11-02 [facility] of 09:56:00 [facility] POCT GLUCOSE (AUTOMATED) 2020-11-02 [facility] of 03:57:00 [facility] POCT GLUCOSE (AUTOMATED) 2020-11-02 [facility] of 03:57:00 [facility] POCT GLUCOSE (AUTOMATED) 2020-11-02 [facility] of 00:42:00 [facility] POCT GLUCOSE (AUTOMATED) 2020-11-02 [facility] of 00:42:00 [facility] ELECTROENCEPHALOGRAM 2020-11-02 [facility] of 00:00:00 [facility] ELECTROENCEPHALOGRAM 2020-11-02 [facility] of 00:00:00 [facility] POCT GLUCOSE (AUTOMATED) 2020-11-01 [facility] of 21:46:00 [facility] POCT GLUCOSE (AUTOMATED) 2020-11-01 [facility] of 21:46:00 [facility] POCT GLUCOSE (AUTOMATED) 2020-11-01 [facility] of 20:44:00 [facility] POCT GLUCOSE (AUTOMATED) 2020-11-01 [facility] of 20:44:00 [facility] POCT GLUCOSE (AUTOMATED) 2020-11-01 [facility] of 17:03:00 [facility] POCT GLUCOSE (AUTOMATED) 2020-11-01 [facility] of 17:03:00 [facility] BASIC METABOLIC PANEL (NA, K, CL, 2020-11-01 [facility] CO2, GLUCOSE, BUN, CREATININE, CA) 17:01:00 [facility] PROCALCITONIN 2020-11-01 [facility] of 17:01:00 [facility] THYROID STIMULATING HORMONE 2020-11-01 [facility] ersity of 17:01:00 [facility] FOLATE 2020-11-01 [facility] of 17:01:00 [facility] VITAMIN B12, LEVEL 2020-11-01 [facility] of 17:01:00 [facility] VITAMIN B12, LEVEL 2020-11-01 [facility] of 17:01:00 [facility] FOLATE 2020-11-01 [facility] of 17:01:00 [facility] THYROID STIMULATING HORMONE 2020-11-01 [facility] ersity of 17:01:00 [facility] BASIC METABOLIC PANEL (NA, K, CL, 2020-11-01 [facility] of CO2, GLUCOSE, BUN, CREATININE, CA) 17:01:00 [facility] PROCALCITONIN 2020-11-01 [facility] of 17:01:00 [facility] POCT GLUCOSE (AUTOMATED) 2020-11-01 [facility] of 12:51:00 [facility] POCT GLUCOSE (AUTOMATED) 2020-11-01 [facility] of 12:51:00 [facility] CBC WITH DIFF 2020-11-01 [facility] of 10:21:00 [facility] BASIC METABOLIC PANEL (NA, K, CL, 2020-11-01 [facility] of CO2, GLUCOSE, BUN, CREATININE, CA) 10:21:00 [facility] POCT GLUCOSE (AUTOMATED) 2020-11-01 [facility] of 10:21:00 [facility] BASIC METABOLIC PANEL (NA, K, CL, 2020-11-01 [facility] [place] of CO2, GLUCOSE, BUN, CREATININE, CA) 10:21:00 [facility] CBC WITH DIFF 2020-11-01 [facility] 10:21:00 [facility] POCT GLUCOSE (AUTOMATED) 2020-11-01 [facility] of 10:21:00 [facility] POCT GLUCOSE (AUTOMATED) 2020-11-01 [facility] of 08:03:00 [facility] POCT GLUCOSE (AUTOMATED) 2020-11-01 [facility] of 08:03:00 [facility] BASIC METABOLIC PANEL (NA, K, CL, 2020-11-01 [facility] of CO2, GLUCOSE, BUN, CREATININE, CA) 05:06:00 [facility] POCT GLUCOSE (AUTOMATED) 2020-11-01 [facility] of 05:06:00 [facility] BASIC METABOLIC PANEL (NA, K, CL, 2020-11-01 [facility] of CO2, GLUCOSE, BUN, CREATININE, CA) 05:06:00 [facility] POCT GLUCOSE (AUTOMATED) 2020-11-01 [facility] of 05:06:00 [facility] POCT GLUCOSE (AUTOMATED) 2020-11-01 [facility] of 02:17:00 [facility] POCT GLUCOSE (AUTOMATED) 2020-11-01 [facility] of 02:17:00 [facility] MR STROKE BRAIN WO CONTRAST 2020-11-01 [facility] ersity of 01:18:51 [facility] MR STROKE BRAIN WO CONTRAST 2020-11-01 [facility] ersity of 01:18:51 [facility] POCT GLUCOSE (AUTOMATED) 2020-10-31 [facility] of 23:26:00 [facility] POCT GLUCOSE (AUTOMATED) 2020-10-31 [facility] of 23:26:00 [facility] POCT GLUCOSE (AUTOMATED) 2020-10-31 [facility] of 16:40:00 [facility] POCT GLUCOSE (AUTOMATED) 2020-10-31 [facility] of 16:40:00 [facility] POCT GLUCOSE (AUTOMATED) 2020-10-31 [facility] of 12:41:00 [facility] POCT GLUCOSE (AUTOMATED) 2020-10-31 [facility] of 12:41:00 [facility] CBC WITHOUT DIFF 2020-10-31 [facility], [facility] of 11:13:00 [facility] CBC WITHOUT DIFF 2020-10-31 [facility] of 11:13:00 [facility] PREPARE PACKED RBC 2020-10-31 [facility], [facility] of 06:44:13 [facility] PREPARE PACKED RBC 2020-10-31 [facility], [facility] of 06:44:13 [facility] HB ABO GROUPING 2020-10-31 [facility], [facility] of 05:48:00 [facility] HB ABO GROUPING 2020-10-31 [facility], [facility] of 05:48:00 [facility] POCT GLUCOSE (AUTOMATED) 2020-10-31 [facility] of 05:16:00 [facility] POCT GLUCOSE (AUTOMATED) 2020-10-31 [facility] of 05:16:00 [facility] BASIC METABOLIC PANEL (NA, K, CL, 2020-10-31 [facility] [place] of CO2, GLUCOSE, BUN, CREATININE, CA) 04:05:00 [facility] CBC WITH DIFF 2020-10-31 Ele Cao of 04:05:00 [facility] ACTIVATED PARTIAL THRMPLAS CARLTON 2020-10-31 [facility] 04:05:00 [facility] MAGNESIUM 2020-10-31 [facility], [facility] of 04:05:00 [facility] MAGNESIUM 2020-10-31 [facility] of 04:05:00 [facility] BASIC METABOLIC PANEL (NA, K, CL, 2020-10-31 [facility] [place] of CO2, GLUCOSE, BUN, CREATININE, CA) 04:05:00 [facility] CBC WITH DIFF 2020-10-31 [facility] 04:05:00 [facility] ACTIVATED PARTIAL THRMPLAS [place] 2020-10-31 [facility] of 04:05:00 [facility] HB ECG ROUTINE & RHYTHM STRIP 2020-10-31 [facility] iversity of 03:58:40 [facility] HB ECG ROUTINE & RHYTHM STRIP 2020-10-31 [place] [facility] iversity of 03:58:40 [facility] POCT GLUCOSE (AUTOMATED) 2020-10-31 [facility] of 01:27:00 [facility] POCT GLUCOSE (AUTOMATED) 2020-10-31 [facility] of 01:27:00 [facility] XR CHEST 1 VW 2020-10-31 [facility] of 01:06:00 [facility] XR CHEST 1 VW 2020-10-31 [facility] of 01:06:00 [facility] POCT GLUCOSE (AUTOMATED) 2020-10-30 [facility] of 22:08:00 [facility] POCT GLUCOSE (AUTOMATED) 2020-10-30 [facility] of 22:08:00 [facility] POCT GLUCOSE (AUTOMATED) 2020-10-30 [facility] of 19:43:00 [facility] POCT GLUCOSE (AUTOMATED) 2020-10-30 [facility] of 19:43:00 [facility] ACTIVATED PARTIAL THRMPLAS CARLTON 2020-10-30 Bow[facility]iversity of 17:13:00 [facility] ACTIVATED PARTIAL THRMPLAS CARLTON 2020-10-30 Bowen Rus[facility]iversity of 17:13:00 [facility] POCT GLUCOSE (AUTOMATED) 2020-10-30 [facility] of 17:05:00 [facility] POCT GLUCOSE (AUTOMATED) 2020-10-30 [facility] of 17:05:00 [facility] CBC WITHOUT DIFF 2020-10-30 [facility] of 13:57:00 [facility] BASIC METABOLIC PANEL (NA, K, CL, 2020-10-30 [place] of CO2, GLUCOSE, BUN, CREATININE, CA) 13:57:00 [facility] MAGNESIUM 2020-10-30 [facility] [place] of 13:57:00 [facility] MAGNESIUM 2020-10-30 Kiley [facility] [place] of 13:57:00 [facility] BASIC METABOLIC PANEL (NA, K, CL, 2020-10-30 [facility] [place] of CO2, GLUCOSE, BUN, CREATININE, CA) 13:57:00 [facility] CBC WITHOUT DIFF 2020-10-30 Dianne Kiser of 13:57:00 [facility] POCT GLUCOSE (AUTOMATED) 2020-10-30 [facility] of 12:40:00 [facility] POCT GLUCOSE (AUTOMATED) 2020-10-30 [facility] of 12:40:00 [facility] POCT GLUCOSE (AUTOMATED) 2020-10-30 [facility] of 09:33:00 [facility] POCT GLUCOSE (AUTOMATED) 2020-10-30 [facility] of 09:33:00 [facility] POCT GLUCOSE (AUTOMATED) 2020-10-30 [facility] of 06:23:00 [facility] POCT GLUCOSE (AUTOMATED) 2020-10-30 [facility] of 06:23:00 [facility] BASIC METABOLIC PANEL (NA, K, CL, 2020-10-30 Ele Cao of CO2, GLUCOSE, BUN, CREATININE, CA) 05:24:00 [facility] ACTIVATED PARTIAL THRMPLAS CARLTON 2020-10-30 Bowen Russo of 05:24:00 [facility] CBC WITH DIFF 2020-10-30 Ele Cao of 05:24:00 [facility] MAGNESIUM 2020-10-30 Dianne Kiser [place] of 05:24:00 [facility] MAGNESIUM 2020-10-30 Dianne Kiser [place] of 05:24:00 [facility] BASIC METABOLIC PANEL (NA, K, CL, 2020-10-30 Ele Cao of CO2, GLUCOSE, BUN, CREATININE, CA) 05:24:00 [facility] CBC WITH DIFF 2020-10-30 [facility] [place] of 05:24:00 [facility] ACTIVATED PARTIAL THRMPLAS CARLTON 2020-10-30 [facility]iversity of 05:24:00 [facility] POCT GLUCOSE (AUTOMATED) 2020-10-30 [facility] of 03:24:00 [facility] POCT GLUCOSE (AUTOMATED) 2020-10-30 [facility] of 03:24:00 [facility] POCT GLUCOSE (AUTOMATED) 2020-10-30 [facility] of 00:45:00 [facility] POCT GLUCOSE (AUTOMATED) 2020-10-30 [facility] of 00:45:00 [facility] POCT GLUCOSE (AUTOMATED) 2020-10-29 [facility] of 22:25:00 [facility] POCT GLUCOSE (AUTOMATED) 2020-10-29 [facility] of 22:25:00 [facility] ACTIVATED PARTIAL THRMPLAS CARLTON 2020-10-29 [facility] of 20:52:00 [facility] ACTIVATED PARTIAL THRMPLAS [place] 2020-10-29 Bow[facility] of 20:52:00 [facility] BASIC METABOLIC PANEL (NA, K, CL, 2020-10-29 [facility] [place] of CO2, GLUCOSE, BUN, CREATININE, CA) 20:08:00 [facility] MAGNESIUM 2020-10-29 [facility] of 20:08:00 [facility] MAGNESIUM 2020-10-29 [facility] of 20:08:00 [facility] BASIC METABOLIC PANEL (NA, K, CL, 2020-10-29 [facility] of CO2, GLUCOSE, BUN, CREATININE, CA) 20:08:00 [facility] POCT GLUCOSE (AUTOMATED) 2020-10-29 [facility] of 19:12:00 Prabhjot Melara [facility] POCT GLUCOSE (AUTOMATED) 2020-10-29 [place], Univers ity of 19:12:00 Prabhjot Melara [facility] POCT GLUCOSE (AUTOMATED) 2020-10-29 [facility], [facility] it[facility] 16:27[facility]00 [facility] 2020-10-29 [facility] ity of 16:27:00 [facility] TROPONIN I 2020-10-29 [facility] of 15:15:00 [facility] BASIC METABOLIC PANEL (NA, K, CL, 2020-10-29 [facility] CO2, GLUCOSE, BUN, CREATININE, CA) 15:15:00 [facility] ACTIVATED PARTIAL THRMPLAS CARL[place] 2020-10-29 Bowen Russo niversity of 15:15:00 [facility] TROPONIN I 2020-10-29 [facility] 15:15:00 [facility] BASIC METABOLIC PANEL (NA, K, CL, 2020-10-29 [facility] of CO2, GLUCOSE, BUN, CREATININE, CA) 15:15:00 [facility] ACTIVATED PARTIAL THRMPLAS CARLTON 2020-10-29 Bowen Russo niversity of 15:15:00 [facility] POCT GLUCOSE (AUTOMATED) 2020-10-29 [facility] ity of 12:54:00 [facility] POCT GLUCOSE (AUTOMATED) 2020-10-29 [facility] ity of 12:54:00 [facility] XR BONE SURVEY 2020-10-29 [facility] of 09:39:57 [facility] XR BONE SURVEY 2020-10-29 [facility] of 09:39:57 [facility] MRSA / MSSA SCREEN BY PCRBRITNEY 2020-10-[address] [facility] of 08:01:00 [facility] MRSA / MSSA SCREEN BY PCRBRITNEY 2020-10-29 Rafaela [facility] of 08:01:00 [facility] TROPONIN I 2020-10-29 Fernando Yuan [facility] 08:00:00 [facility] CBC WITH DIFF 2020-10-29 [facility] of 08:00:00 [facility] BASIC METABOLIC PANEL (NA, K, CL, 2020-10-29 [facility] of CO2, GLUCOSE, BUN, CREATININE, CA) 08:00:00 [facility] TROPONIN I 2020-10-29 Fernando Yuan [place] of 08:00:00 [facility] BASIC METABOLIC PANEL (NA, K, CL, 2020-10-29 Ele [facility] [place] of CO2, GLUCOSE, BUN, CREATININE, CA) 08:00:00 [facility] CBC WITH DIFF 2020-10-29 [facility] [place] of 08:00:00 [facility] POCT GLUCOSE (AUTOMATED) 2020-10-29 [facility] ity of 07:09:00 [facility] POCT GLUCOSE (AUTOMATED) 2020-10-29 [facility] ity of 07:09:00 [facility] POCT GLUCOSE (AUTOMATED) 2020-10-29 [facility] ity of 03:58:00 [facility] POCT GLUCOSE (AUTOMATED) 2020-10-29 [facility] ity of 03:58:00 [facility] TROPONIN I 2020-10-29 [facility] 03:18:00 [facility] CBC WITH DIFF 2020-10-29 [facility] of 03:18:00 [facility] BASIC METABOLIC PANEL (NA, K, CL, 2020-10-29 [facility], [facility] of CO2, GLUCOSE, BUN, CREATININE, CA) 03:18:00 [facility] MAGNESIUM 2020-10-29 [facility] of 03:18:00 [facility] MAGNESIUM 2020-10-29 [facility] of 03:18:00 [facility] TROPONIN I 2020-10-29 [facility] of 03:18:00 [facility] BASIC METABOLIC PANEL (NA, K, CL, 2020-10-29 [facility], [facility] of CO2, GLUCOSE, BUN, CREATININE, CA) 03:18:00 [facility] CBC WITH DIFF 2020-10-29 [facility], [facility] of 03:18:00 [facility] PROTHROMBIN TIME / INR 2020-10-29 [facility], [facility] y of 03:17:00 [facility] FIBRINOGEN 2020-10-29 [facility], [facility] of 03:17:00 [facility] PROTHROMBIN TIME / IN[facility] 2020-10-[facility] of 03:17:00 [facility] FIBRINOGEN 2020-10-29 [facility] of 03:17:00 [facility] AC PANEL 20 + LACTIC ACID 2020-10-29 [facility] sity of 03:09:00 [facility] AC PANEL 20 + LACTIC ACID 2020-10-29 [facility], [facility] sity of 03:09:00 [facility] CT HEAD WO CONTRAST 2020-10-29 [facility] o f 02:45:23 [facility] CT HEAD WO CONTRAST 2020-10-29 [facility], [facility] o f 02:45:23 [facility] POCT GLUCOSE (AUTOMATED) 2020-10-29 [facility] ity of 01:09:00 [facility] POCT GLUCOSE (AUTOMATED) 2020-10-29 [facility] ity of 01:09:00 [facility] POCT GLUCOSE (AUTOMATED) 2020-10-28 [facility] ity of 21:42:00 [facility] POCT GLUCOSE (AUTOMATED) 2020-10-28 [facility] ity of 21:42:00 [facility] TRANSTHORACIC ECHO (TTE) COMPLETE 2020-10-28 [facility] W/ CONTRAST 20:20:00 [facility] TRANSTHORACIC ECHO (TTE) COMPLETE 2020-10-28 [facility]/ CONTRAST 20:20:00 [facility] POCT GLUCOSE (AUTOMATED) 2020-10-28 [facility] ity of 16:35:00 [facility] POCT GLUCOSE (AUTOMATED) 2020-10-28 [facility] ity of 16:35:00 [facility] XR CHEST 1 VW 2020-10-28 [facility] 15:19:34 [facility] XR CHEST 1 VW 2020-10-28 [facility] 15:19:34 [facility] HB ECG ROUTINE & RHYTHM STRIP 2020-10-28 Leonel, Un iversity of 14:00:32 [facility] HB ECG ROUTINE & RHYTHM STRIP 2020-10-28 Leonel, Un iversity of 14:00:32 [facility] AC PANEL 20 + LACTIC ACID 2020-10-28 Leonel, Univer sity of 13:52:00 [facility] AC PANEL 20 + LACTIC ACID 2020-10-28 Leonel, Univer sity of 13:52:00 [facility] POCT GLUCOSE (AUTOMATED) 2020-10-28 [facility] of 13:44:00 [facility] POCT GLUCOSE (AUTOMATED) 2020-10-28 [facility] of 13:44:00 [facility] POCT GLUCOSE (AUTOMATED) 2020-10-28 [facility] of 13:15:00 [facility] POCT GLUCOSE (AUTOMATED) 2020-10-28 [facility] of 13:15:00 [facility] POCT GLUCOSE (AUTOMATED) 2020-10-28 [facility] of 10:41:00 [facility] POCT GLUCOSE (AUTOMATED) 2020-10-28 [facility] of 10:41:00 [facility] URINE CULTURE 2020-10-28 [facility] of 07:48:00 [facility] URINE CULTURE 2020-10-28 [facility] of 07:48:00 [facility] TROPONIN I 2020-10-28 [facility] 07:45:00 [facility] CBC WITHOUT DIFF 2020-10-28 [facility] of 07:45:00 [facility] BASIC METABOLIC PANEL (NA, K, CL, 2020-10-28 [facility] of CO2, GLUCOSE, BUN, CREATININE, CA) 07:45:00 [facility] TROPONIN I 2020-10-28 [facility] of 07:45:00 [facility] BASIC METABOLIC PANEL (NA, K, CL, 2020-10-28 [facility] of CO2, GLUCOSE, BUN, CREATININE, CA) 07:45:00 [facility] CBC WITHOUT DIFF 2020-10-28 [facility] of 07:45:00 [facility] POCT GLUCOSE (AUTOMATED) 2020-10-28 [facility] of 07:37:00 [facility] POCT GLUCOSE (AUTOMATED) 2020-10-28 [facility] of 07:37:00 [facility] POCT GLUCOSE (AUTOMATED) 2020-10-28 [facility] of 04:15:00 [facility] POCT GLUCOSE (AUTOMATED) 2020-10-28 [facility] of 04:15:00 [facility] POCT GLUCOSE (AUTOMATED) 2020-10-28 [facility] of 01:28:00 [facility] POCT GLUCOSE (AUTOMATED) 2020-10-28 [facility] of 01:28:00 [facility] BLOOD CULTURE SCREEN 2020-10-27 [facility] of 23:28:00 [facility] BLOOD CULTURE SCREEN 2020-10-27 [facility] of 23:28:00 [facility] BASIC METABOLIC PANEL (NA, K, CL, 2020-10-27 [facility] of CO2, GLUCOSE, BUN, CREATININE, CA) 21:40:00 [facility] TROPONIN I 2020-10-27 [facility] of 21:40:00 [facility] EXTRA TUBE LAV 2020-10-27 [facility] 21:40:00 [facility] TROPONIN I 2020-10-27 [facility] of 21:40:00 [facility] BASIC METABOLIC PANEL (NA, K, CL, 2020-10-27 [facility] of CO2, GLUCOSE, BUN, CREATININE, CA) 21:40:00 [facility] EXTRA TUBE LAV 2020-10-27 [facility] of 21:40:00 [facility] PO[facility] GLUCOSE (AUTOMATED) 2020-10-27 Vonda [facility] of 21:28:00 [facility] POCT GLUCOSE (AUTOMATED) 2020-10-27 [facility] of 21:28:00 [facility] POCT GLUCOSE (AUTOMATED) 2020-10-27 [facility] of 19:12:00 [facility] POCT GLUCOSE (AUTOMATED) 2020-10-27 [facility] of 19:12:00 [facility] POCT GLUCOSE (AUTOMATED) 2020-10-27 [facility] of 16:09:00 [facility] POCT GLUCOSE (AUTOMATED) 2020-10-27 [facility]onda St[facility] of 16:09:00 [facility] CBC WITH DIFF 2020-10-27 [facility] of 13:09:00 [facility] CBC WITH DIFF 2020-10-27 Norman, Jax [facility] of 13:09:00 [facility] POCT GLUCOSE (AUTOMATED) 2020-10-27 [facility] of 12:57:00 [facility] POCT GLUCOSE (AUTOMATED) 2020-10-27 [facility] of 12:57:00 [facility] BASIC METABOLIC PANEL (NA, K, CL, 2020-10-27 Norman Jax [place] of CO2, GLUCOSE, BUN, CREATININE, CA) 10:57:00 [facility] TROPONIN I 2020-10-27 [facility] of 10:57:00 [facility] TROPONIN I 2020-10-27 [facility] of 10:57:00 [facility] BASIC METABOLIC PANEL (NA, K, CL, 2020-10-27 Norman Jax [place] of CO2, GLUCOSE, BUN, CREATININE, CA) 10:57:00 [facility] BASIC METABOLIC PANEL (NA, K, CL, 2020-10-27 Norman Jax [place] of CO2, GLUCOSE, BUN, CREATININE, CA) 05:09:00 [facility] TROPONIN I 2020-10-27 Norman Jax [place] of 05:09:00 [facility] TROPONIN I 2020-10-27 Norman Jax [place] of 05:09:00 [facility] BASIC METABOLIC PANEL (NA, K, CL, 2020-10-27 Norman Jax [place] of CO2, GLUCOSE, BUN, CREATININE, CA) 05:09:00 [facility] POCT GLUCOSE (AUTOMATED) 2020-10-27 [facility]onda [facility]arks [facility] of 02:53:00 [facility] POCT GLUCOSE (AUTOMATED) 2020-10-27 [facility] of 02:53:00 [facility] BASIC METABOLIC PANEL (NA, K, CL, 2020-10-26 Norman Jax [place] of CO2, GLUCOSE, BUN, CREATININE, CA) 22:44:00 [facility] BASIC METABOLIC PANEL (NA, K, CL, 2020-10-26 Norman [facility] of CO2, GLUCOSE, BUN, CREATININE, CA) 22:44:00 [facility] POCT GLUCOSE (AUTOMATED) 2020-10-26 [facility] of 21:39:00 [facility] POCT GLUCOSE (AUTOMATED) 2020-10-26 [facility] of 21:39:00 [facility] XR ABDOMEN 1 VW 2020-10-26 [facility] of 20:25:00 [facility] XR ABDOMEN 1 VW 2020-10-26 [facility] of 20:25:00 [facility] POCT GLUCOSE (AUTOMATED) 2020-10-26 [facility] of 16:55:00 [facility] POCT GLUCOSE (AUTOMATED) 2020-10-26 Jairo [facility]d [facility] of 16:55:00 [facility] POCT GLUCOSE (AUTOMATED) 2020-10-26 [facility] of 12:57:00 [facility] POCT GLUCOSE (AUTOMATED) 2020-10-26 [facility] of 12:57:00 [facility] BASIC METABOLIC PANEL (NA, K, CL, 2020[facility] of CO2, GLUCOSE, BUN, CREATININE, CA) 08:46:00 [facility] CBC WITH DIFF 2020-10-26 Margi [facility] of 08:46:00 [facility] MAGNESIUM 2020-10-26 Margi [facility] of 08:46:00 [facility] TROPONIN I 2020-10-26 Margi [facility] of 08:46:00 [facility] MAGNESIUM 2020-10-26 Mars [facility] of 08:46:00 [facility] TROPONIN I 2020-10-26 Mars [facility] of 08:46:00 [facility] BASIC METABOLIC PANEL (NA, K, CL, 2020-10-26 [facility] of CO2, GLUCOSE, BUN, CREATININE, CA) 08:46:00 [facility] CBC WITH DIFF 2020-10-26 Margi [facility] of 08:46:00 [facility] TROPONIN I 2020-10-26 Katina [facility] of 02:23:00 [facility] TROPONIN I 2020-10-26 Katina [facility] of 02:23:00 [facility] POCT GLUCOSE (AUTOMATED) 2020-10-26 Vonda Starks [facility] ity of 02:22:00 [facility] POCT GLUCOSE (AUTOMATED) 2020-10-26 Vonda Starks [facility] ity of 02:22:00 [facility] POCT GLUCOSE (AUTOMATED) 2020-10-25 Vonda Starks [facility] ity of 23:35:00 [facility] POCT GLUCOSE (AUTOMATED) 2020-10-25 Vonda Starks [facility] ity of 23:35:00 [facility] BASIC METABOLIC PANEL (NA, K, CL, 2020-10-25 [facility] of CO2, GLUCOSE, BUN, CREATININE, CA) 19:50:00 [facility] MAGNESIUM 2020-10-25 [facility] of 19:50:00 [facility] TROPONIN I 2020-10-25 [facility] of 19:50:00 [facility] MAGNESIUM 2020-10-25 [facility] of 19:50:00 [facility] TROPONIN I 2020-10-25 [facility] of 19:50:00 [facility] BASIC METABOLIC PANEL (NA, K, CL, 2020-10-25 [facility] of CO2, GLUCOSE, BUN, CREATININE, CA) 19:50:00 [facility] AC PANEL 20 + LACTIC ACID 2020-10-25 Margi [facility] sity of 19:49:00 [facility] AC PANEL 20 + LACTIC ACID 2020-10-25 Mars [facility] sity of 19:49:00 [facility] HB ECG ROUTINE & RHYTHM STRIP 2020-10-25 Margi Dianne iversity of 19:35:45 [facility] HB ECG ROUTINE & RHYTHM STRIP 2020-10-25 Dianne Kiser [facility] i[facility] of 19:35:45 [facility] AC PANEL 20 + LACTIC ACID 2020-10-25 [facility] of 18:22:00 [facility] AC PANEL 20 + LACTIC ACID 2020-10-25 Rafaela, Bowen [facility] of 18:22:00 [facility] POCT GLUCOSE (AUTOMATED) 2020-10-25 [facility] of 17:15:00 [facility] POCT GLUCOSE (AUTOMATED) 2020-10-25 [facility] of 17:15:00 [facility] AC PANEL 20 + LACTIC ACID 2020-10-25 Rafaela, Bowen [facility] of 15:21:00 [facility] AC PANEL 20 + LACTIC ACID 2020-10-25 Rafaela, [facility] of 15:21:00 [facility] POCT GLUCOSE (AUTOMATED) 2020-10-25 [facility] of 12:42:00 [facility] POCT GLUCOSE (AUTOMATED) 2020-10-25 [facility] of 12:42:00 [facility] CBC WITH DIFF 2020-10-25 Jax [facility] [place] of 08:27:00 [facility] BASIC METABOLIC PANEL (NA, K, CL, 2020-10-25 Jax Austin of CO2, GLUCOSE, BUN, CREATININE, CA) 08:27:00 [facility] MAGNESIUM 2020-10-25 Jax Austin of 08:27:00 [facility] MAGNESIUM 2020-10-25 Jax [place] of 08:27:00 [facility] BASIC METABOLIC PANEL (NA, K, CL, 2020-10-25 Jax Austin of CO2, GLUCOSE, BUN, CREATININE, CA) 08:27:00 [facility] CBC WITH DIFF 2020-10-25 Jax [facility] [place] of 08:27:00 [facility] POCT GLUCOSE (AUTOMATED) 2020-10-25 [facility] of 01:28:00 [facility] POCT GLUCOSE (AUTOMATED) 2020-10-25 [facility]onda [facility] of 01:28:00 [facility] POCT GLUCOSE (AUTOMATED) 2020-10-24 Vonda [facility] of 21:35:00 [facility] POCT GLUCOSE (AUTOMATED) 2020-10-24 [facility]onda [facility] of 21:35:[address] [facility] [address] HEAD WO CONTRAST 2020-10-24 Jax Austin o f 19:12:[address] [facility] [address] HEAD WO CONTRAST 2020-10-24 J[facility] f 19:12:43 [facility] POCT GLUCOSE (AUTOMATED) 2020-10-24 [facility] of 16:51:00 [facility] POCT GLUCOSE (AUTOMATED) 2020-10-24 [facility] of 16:51:00 [facility] CT THORAX W CONTRAST 2020-10-24 Jax Austin of 14:08:31 [facility] CT THORAX W CONTRAST 2020-10-24 [facility] of 14:08:31 [facility] CT ABDOMEN PELVIS W CONTRAST 2020-10-24 Jax [facility] vers[facility] of 14:06:06 [facility] CT ABDOMEN PELVIS W CONTRAST 2020-10-24 Jax [facility] of 14:06:06 [facility] POCT GLUCOSE (AUTOMATED) 2020-10-24 [facility] of 12:42:00 [facility] POCT GLUCOSE (AUTOMATED) 2020-10-24 [facility] of 12:42:00 [facility] MAGNESIUM 2020-10-24 [facility] of 09:41:00 [facility] BASIC METABOLIC PANEL (NA, K, CL, 2020-10-24 [facility] of CO2, GLUCOSE, BUN, CREATININE, CA) 09:41:00 [facility] CBC WITH DIFF 2020-10-24 [facility] of 09:41:00 [facility] MAGNESIUM 2020-10-24 [facility] of 09:41:00 [facility] BASIC METABOLIC PANEL (NA, K, CL, 2020-10-24 [facility] of CO2, GLUCOSE, BUN, CREATININE, CA) 09:41:00 [facility] CBC WITH DIFF 2020-10-24 [facility] of 09:41:00 [facility] AUTHORIZATION FOR RELEASE OF PHI 2020-10-24 [facility] of 05:01:00 Unassigned, No [facility] AUTHORIZATION FOR RELEASE OF PHI 2020-10-24 [facility] of 05:01:00 Unassigned, No [facility] POCT GLUCOSE (AUTOMATED) 2020-10-24 [facility] of 01:01:00 [facility] POCT GLUCOSE (AUTOMATED) 2020-10-24 [facility] of 01:01:00 [facility] POCT GLUCOSE (AUTOMATED) 2020-10-23 [facility] of 23:29:00 [facility] POCT GLUCOSE (AUTOMATED) 2020-10-23 [facility] of 23:29:00 [facility] POCT GLUCOSE (AUTOMATED) 2020-10-23 [facility] of 18:06:00 [facility] POCT GLUCOSE (AUTOMATED) 2020-10-23 [facility] of 18:06:00 [facility] CBC WITH DIFF 2020-10-23 [facility] 13:08:00 [facility] CBC WITH DIFF 2020-10-23 [facility] 13:08:00 [facility] POCT GLUCOSE (AUTOMATED) 2020-10-23 [facility] of 13:06:00 [facility] POCT GLUCOSE (AUTOMATED) 2020-10-23 [facility] of 13:06:00 [facility] PREPARE PACKED RBC 2020-10-23 Ele Cao [place] of 10:02:05 [facility] PREPARE PACKED RBC 2020-10-23 Ele Cao [place] of 10:02:05 [facility] CBC WITH DIFF 2020-10-23 Jax [facility] [place] of 08:46:00 [facility] BASIC METABOLIC PANEL (NA, K, CL, 2020-10-23 Jax [place] of CO2, GLUCOSE, BUN, CREATININE, CA) 08:46:00 [facility] MAGNESIUM 2020-10-23 Ele Cao [place] of 08:46:00 [facility] MAGNESIUM 2020-10-23 Ele Cao [place] of 08:46:00 [facility] BASIC METABOLIC PANEL (NA, K, CL, 2020-10-23 Jax Austin of CO2, GLUCOSE, BUN, CREATININE, CA) 08:46:00 [facility] CBC WITH DIFF 2020-10-23 Jax Austin of 08:46:00 [facility] TROPONIN I 2020-10-22 Jax Austin of 22:48:00 [facility] CBC WITH DIFF 2020-10-22 Jxa Austin of 22:48:00 [facility] TROPONIN I 2020-10-22 Jax Austin of 22:48:00 [facility] CBC WITH DIFF 2020-10-22 Jax Austin of 22:48:00 [facility] XR ABDOMEN 1 VW 2020-10-22 Jax Austin of 22:32:58 [facility] XR ABDOMEN 1 VW 2020-10-22 Jax Austin of 22:32:58 [facility] GLYCOSYLATED HEMOGLOBIN (A1C) 2020-10-22 Jax Austin iversity of 18:10:00 [facility] IRON PANEL 2020-10-22 Jax Austin of 18:10:00 [facility] IRON PANEL 2020-10-22 Jax Austin of 18:10:00 [facility] GLYCOSYLATED HEMOGLOBIN (A1C) 2020-10-22 Jax Austin iversity of 18:10:00 [facility] XR CHEST 1 VW 2020-10-22 Jax Austin of 17:58:02 [facility] XR CHEST 1 VW 2020-10-22 Jax Austin of 17:58:02 [facility] AC PANEL 20 + LACTIC ACID 2020-10-22 Jax Austin sity of 17:30:00 [facility] AC PANEL 20 + LACTIC ACID 2020-10-22 Jax Austin of 17:30:00 [facility] BLOOD CULTURE SCREEN 2020-10-22 Jax Austin of 17:17:00 [facility] BLOOD CULTURE SCREEN 2020-10-22 Jax Austin of 17:17:00 [facility] URINALYSIS 2020-10-22 Jax Austin of 16:59:00 [facility] URINE CULTURE 2020-10-22 Jax [place] of 16:59:00 [facility] BASIC METABOLIC PANEL (NA, K, CL, 2020-10-22 Jax Austin of CO2, GLUCOSE, BUN, CREATININE, CA) 16:59:00 [facility] CBC WITH DIFF 2020-10-22 Jax Austin of 16:59:00 [facility] FIBRINOGEN 2020-10-22 Jax [place] of 16:59:00 [facility] PROTHROMBIN TIME / INR 2020-10-22 Jax Austin [facility] y of 16:59:00 [facility] HEPATIC FUNCTION PANEL ([id number]) 2020-10-22 Jax Austin [facility] of (ALB,T.PRO,BILI 16:59:00 [facility] T,BU/BC,ALT,AST,ALK PHOS) [place] FERRITIN SERUM 2020-10-22 Jax Austin of 16:59:00 [facility] TROPONIN I 2020-10-22 Jax Austin of 16:59:00 [facility] FERRITIN SERUM 2020-10-22 Jax [place] of 16:59:00 [facility] TROPONIN I 2020-10-22 Jax [place] of 16:59:00 [facility] HEPATIC FUNCTION PANEL ([id number]) 2020-10-22 Jax Austin [facility]iversity of (ALB,T.PRO,BILI 16:59:00 [facility],BU/BC,ALT,AST,ALK PHOS) [place] BASIC METABOLIC PANEL (NA, K, CL, 2020-10-22 Jax Austin of CO2, GLUCOSE, BUN, CREATININE, CA) 16:59:00 [facility] CBC WITH DIFF 2020-10-22 Jax [place] of 16:59:00 [facility] PROTHROMBIN TIME / INR 2020-10-22 Jax Austin [facility] y of 16:59:00 [facility] FIBRINOGEN 2020-10-22 Jax [place] of 16:59:00 [facility] URINALYSIS 2020-10-22 Jax [place] of 16:59:00 [facility] URINE CULTURE 2020-10-22 Jax [place] of 16:59:00 [facility] MRSA / MSSA SCREEN BY BRITNEY MTZ 2020-10-22 Jax [place] of 16:45:00 [facility] MRSA / MSSA SCREEN BY PCR, BRITNEY 2020-10-22 Jax [place] of 16:45:00 [facility] HB ECG ROUTINE & RHYTHM STRIP 2020-10-22 Jax Austin Un iversity of 16:40:04 [facility] HB ECG ROUTINE & RHYTHM STRIP 2020-10-22 Jax Austin Un iversity of 16:40:04 [facility] HB ABO GROUPING 2020-10-22 Jax [place] of 16:30:00 [facility] HB ABO GROUPING 2020-10-22 [facility] of 16:30:00 [facility] HOSPITAL ADMISSION 2020-10-22 [facility] of 05:01:00 Unassigned, No [facility] HOSPITAL ADMISSION 2020-10-22 [facility] of 05:01:00 Unassigned, No [facility] REFERRAL- REQUEST/RESPONSE 2020-07-04 [facility] rsity of 06:01:00 Unassigned, No [facility] TROPONIN I 2020-05-03 [facility] of 19:53:00 [facility] HEPATIC FUNCTION PANEL ([id number]) 2020-05-03 [facility] of (ALB,T.PRO,BILI 19:53:00 [facility],BU/BC,ALT,AST,ALK PHOS) [place] BASIC METABOLIC PANEL (NA, K, CL, 2020-05-03 [facility] of CO2, GLUCOSE, BUN, CREATININE, CA) 19:53:00 [facility] CBC WITH DIFF 2020-05-03 [facility] of 19:53:00 [facility] N-TERMINAL PRO-BNP 2020-05-03 [facility] o f 19:53:00 [facility] HB ABO GROUPING 2020-05-03 [facility] of 19:52:00 [facility] EKG-12 LEAD 2020-05-03 [facility] of 19:00:54 [facility] CONSENT/REFUSAL FOR DIAGNOSIS AND 2020-05-03 [facility] TREATMENT 18:25:10 Unassigned, No [facility] MEDICAL RELEASE/CLEARANCE FORMS 2019-11-16 [facility] 05:01:00 Unassigned, No [facility] POCT GLUCOSE (AUTOMATED) 2019-10-28 Faustino [facility] of 12:52:00 [facility] URIC ACID 2019-10-28 [facility] 09:13:00 [facility] COMP. METABOLIC PANEL ([id number]) 2019-10-28 Faustino Mason iversity of 09:13:00 [facility] CBC WITH DIFFERENTIAL 2019-10-28 Faustino Mason [place] of 09:13:00 [facility] N-TERMINAL PRO-BNP 2019-10-28 [facility] 09:13:00 [facility] POCT GLUCOSE (AUTOMATED) 2019-10-28 Marlon, Faustino [facility] it[facility] of 01:54:00 [facility] POCT GLUCOSE (AUTOMATED) 2019-10-27 Marlon, Faustino [facility] ity of 21:06:00 [facility] POCT GLUCOSE (AUTOMATED) 2019-10-27 Marlon, Faustino [facility] ity of 16:18:00 [facility] TROPONIN I 2019-10-27 Faustino Mason [place] of 15:00:00 [facility] PROFILE / HEMOGRAM 2019-10-27 Faustino Mason [place] of 15:00:00 [facility] POCT GLUCOSE (AUTOMATED) 2019-10-27 Marlon, Faustino [facility] it[facility] of 14:34:00 [facility] POCT GLUCOSE (AUTOMATED) 2019-10-27 Marlon, Faustino [facility] ity of 12:39:00 [facility] URINALYSIS 2019-10-27 [facility] 10:46:00 [facility] POCT GLUCOSE (AUTOMATED) 2019-10-27 Faustino Mason [facility] of 10:46:00 [facility] UREA NITROGEN, URINE RANDOM 2019-10-27 Faustino Mason [facility] ersity of 10:46:00 [facility] SODIUM, URINE RANDOM 2019-10-27 [facility] 10:46:00 [facility] PROTEIN CREAT RATIO URINE RANDOM 2019-10-27 [facility] 10:46:00 [facility] URIC ACID 2019-10-27 Faustino Mason [place] of 09:10:00 [facility] MAGNESIUM 2019-10-27 [facility] 09:10:00 [facility] TROPONIN I 2019-10-27 Faustino Mason [place] of 09:10:00 [facility] COMP. METABOLIC PANEL ([id number]) 2019-10-27 Faustino Mason Un iversity of 09:10:00 [facility] SEDIMENTATION RATE 2019-10-27 [facility] 09:10:00 [facility] CBC WITH DIFFERENTIAL 2019-10-27 Marlon [facility] of 09:10:00 [facility] N-TERMINAL PRO-BNP 2019-10-27 Marlon [facility] of 09:10:00 [facility] POCT GLUCOSE (AUTOMATED) 2019-10-27 Marlon [facility] ity of 08:44:00 [facility] POCT GLUCOSE (AUTOMATED) 2019-10-27 Marlon [facility] ity of 06:32:00 [facility] POCT GLUCOSE (AUTOMATED) 2019-10-27 Aisha Bah Un[facility] of 05:30:00 [facility] CBC WITH DIFFERENTIAL 2019-10-27 Aisha Bah [facility] of 04:30:00 [facility] GLYCOSYLATED HEMOGLOBIN (A1C) 2019-10-27 Faustino Mason Un iversity of 04:30:00 [facility] CORONAVIRUS COVID-19 TESTING 2019-10-27 Aisha Bah Un iversity of 04:30:00 [facility] POCT GLUCOSE (AUTOMATED) 2019-10-27 Aisha Bha Un[facility]ity of 04:29:00 [facility] POCT GLUCOSE (AUTOMATED) 2019-10-27 Aisha Bah [facility] of 03:32:00 [facility] POCT GLUCOSE (AUTOMATED) 2019-10-27 Aisha Bah [facility] of 02:53:00 [facility] PHOSPHORUS 2019-10-27 Faustino Mason [place] of 02:47:00 [facility] CREATINE KINASE 2019-10-27 [facility] 02:47:00 [facility] URIC ACID 2019-10-27 [facility] 02:47:00 [facility] LIPASE 2019-10-27 Marlon, [facility] of 02:47:00 [facility] MAGNESIUM 2019-10-27 Marlon [facility] Healthcare of 02:47:00 [facility] FERRITIN SERUM 2019-10-27 [facility] of 02:47:00 [facility] TROPONIN I 2019-10-27 [facility] of 02:47:00 [facility] HEPATIC FUNCTION PANEL ([id number]) 2019-10-27 Faustino Mason niversity of (ALB,T.PRO,BILI 02:47:00 [facility],BU/BC,ALT,AST,ALK PHOS) Branch BASIC METABOLIC PANEL (NA, K, CL, 2019-10-27 [facility] of CO2, GLUCOSE, BUN, CREATININE, CA) 02:47:00 [facility] LIPID PANEL ([id number])(TOTAL 2019-10-27 [facility] sity of CHOLESTEROL, TRIGLYCERIDES, HDL) 02:47:00 [facility] EKG-12 LEAD 2019-10-27 [facility] of 02:12:49 [facility] EKG-12 LEAD 2019-10-27 [facility] of 01:34:49 [facility] URIC ACID 2019-10-26 [facility] of 20:20:00 [facility] IRON PANEL 2019-10-26 [facility] of 20:20:00 [facility] ASSIGNMENT OF BENEFITS 2019-10-26 Doctor Universit y of 19:55:10 Unassigned, No [facility] POCT GLUCOSE (AUTOMATED) 2019-10-01 [facility] of 16:41:00 [facility] BASIC METABOLIC PANEL (NA, K, CL, 2019-10-01 Lauro Mcneil [place] of CO2, GLUCOSE, BUN, CREATININE, CA) 12:53:00 [facility] POCT GLUCOSE (AUTOMATED) 2019-10-01 Pritesh Sunshine sity of 12:18:00 [facility] POCT GLUCOSE (AUTOMATED) 2019-10-01 Pritesh Sunshine sity of 01:51:00 [facility] POCT GLUCOSE (AUTOMATED) 2019-09-30 Pritesh Sunshine sity of 21:28:00 [facility] POCT GLUCOSE (AUTOMATED) 2019-09-30 Pritesh Sunshine [facility] sity of 16:51:00 [facility] POCT GLUCOSE (AUTOMATED) 2019-09-30 [facility]shine [facility] of 12:41:00 [facility] OCCULT (GUAIAC) BLOOD 2019-09-30 [facility] of 09:00:00 [facility] MAGNESIUM 2019-09-30 [facility] of 08:25:00 [facility] BASIC METABOLIC PANEL (NA, K, CL, 2019-09-30 [facility], [facility] of CO2, GLUCOSE, BUN, CREATININE, CA) 08:25:00 [facility] CT THORAX WO CONTRAST 2019-09-30 [facility] of 02:53:31 [facility] URINALYSIS 2019-09-30 Brennan, [facility] of 02:28:00 [facility] EXTRA TUBE URINE CULTURE 2019-09-30 Anu Mijoya [facility] ity of 02:28:00 [facility] POCT GLUCOSE (AUTOMATED) 2019-09-30 Pritesh Sunshine [facility] sity of 01:26:00 [facility] XR CHEST 1 VW 2019-09-29 Anu [facility] of 22:13:05 [facility] XR FOOT 3+ VW RIGHT 2019-09-29 Anu [facility] of 22:13:05 [facility] TROPONIN I 2019-09-29 Anu [facility] of 21:57:00 [facility] HEPATIC FUNCTION PANEL ([id number]) 2019-09-29 Chong Brennan niversity of (ALB,T.PRO,BILI 21:57:00 [facility],BU/BC,ALT,AST,ALK PHOS) [place] BASIC METABOLIC PANEL (NA, K, CL, 2019-09-29 Brennan, Mijoya [place] of CO2, GLUCOSE, BUN, CREATININE, CA) 21:57:00 [facility] CBC WITH DIFFERENTIAL 2019-09-29 Chong Brennan [place] of 21:57:00 [facility] PROTHROMBIN TIME / INR 2019-09-29 [facility] 21:57:00 [facility] ACTIVATED PARTIAL THRMPLAS CARLTON 2019-09-29 Chong Brennan niversity of 21:57:00 [facility] N-TERMINAL PRO-BNP 2019-09-29 Chong Brennan [place] of 21:57:00 [facility] EKG-12 LEAD 2019-09-29 Brennan, [facility] of 21:47:42 [facility] COMP. METABOLIC PANEL ([id number]) 2019-09-29 Igor Borrego Un iversity of 15:14:00 [facility] CBC WITH DIFFERENTIAL 2019-09-29 Elmo, [facility] of 15:14:00 [facility] XR CHEST 2 VW 2019-09-29 Republic, [facility] of 14:58:38 [facility] CONSENT/REFUSAL FOR DIAGNOSIS AND 2019-09-29 Doctor [facility] 14:13:28 Unassigned, No [facility] ASSIGNMENT OF BENEFITS 2019-09-29 Doctor [facility] of 14:13:08 Unassigned, No [facility] REFERRAL OCCUPATIONAL THERAPY 2019-09-28 Gilberto Byrne Un iversity of 00:00:00 [facility] [B] CMP 2019-09-28 University of 00:00:00 [facility] [B] CBC 2019-09-28 University of 00:00:00 [facility] ASSIGNMENT OF BENEFITS 2019-09-21 Doctor [facility] of 18:05:04 Unassigned, No [facility] CONSENT/REFUSAL FOR DIAGNOSIS AND 2019-09-21 [facility] 18:03:13 Unassigned, No [facility] NOTICE OF BILLING PRACTICES FOR 2019-09-21 Doctor University of MEDICARE PATIENTS 18:02:38 Unassigned, No [facility] CONSENT TO PHOTOGRAPH 2019-09-21 [facility] 05:01:00 Unassigned, No [facility] REFERRAL OCCUPATIONAL THERAPY 2019-09-21 Gilberto Byrne Un iversity of 00:00:00 [facility] XR CHEST 2 VW 2019-09-19 Servando Kwon [place] of 01:24:42 [facility] POCT GLUCOSE (AUTOMATED) 2019-09-15 Abu Ather, [facility] ity of 17:47:00 [place] [facility] BASIC METABOLIC PANEL (NA, K, CL, 2019-09-15 Derrick Curiel [place] [id number], GLUCOSE, BUN, CREATININE, CA) 16:59:00 [facility] CBC WITH DIFFERENTIAL 2019-09-15 [facility], [facility] of 16:59:00 [facility] POCT GLUCOSE (AUTOMATED) 2019-09-15 Abu Ather, Univers ity of 13:32:00 [facility] POCT GLUCOSE (AUTOMATED) 2019-09-15 Abu [facility], Univers ity of 03:19:00 [facility] POCT GLUCOSE (AUTOMATED) 2019-09-14 Abu [facility], Univers ity of 22:25:00 [facility] POCT GLUCOSE (AUTOMATED) 2019-09-14 Abu [facility], Univers ity of 17:45:00 [facility] XR CHEST 1 VW 2019-09-14 [facility] of 13:58:44 [facility] POCT GLUCOSE (AUTOMATED) 2019-09-14 u [facility], Univers ity of 13:29:00 [facility] MAGNESIUM 2019-09-14 [facility] of 09:47:00 [facility] BASIC METABOLIC PANEL (NA, K, CL, 2019-09-14 [facility] of CO2, GLUCOSE, BUN, CREATININE, CA) 09:47:00 [facility] EXTRA TUBE LT. GREEN 2019-09-14 [facility], [facility] of 09:47:00 [facility] POCT GLUCOSE (AUTOMATED) 2019-09-14 u [facility], Univers ity of 08:10:00 [facility] POCT GLUCOSE (AUTOMATED) 2019-09-14 u [facility], Univers ity of 02:18:00 [facility] POCT GLUCOSE (AUTOMATED) 2019-09-13 u [facility], Univers ity of 23:04:00 [facility] POCT GLUCOSE (AUTOMATED) 2019-09-13 Abu [facility], Univers ity of 17:43:00 [facility] POCT GLUCOSE (AUTOMATED) 2019-09-13 Abu [facility], Univers ity of 13:11:00 [facility] SPUTUM CULTURE 2019-09-13 [facility] of 12:07:00 [facility] MAGNESIUM 2019-09-13 [facility] of 09:51:00 [facility] BASIC METABOLIC PANEL (NA, K, CL, 2019-09-13 Albustami, Aurea r University of CO2, GLUCOSE, BUN, CREATININE, CA) 09:51:00 [facility] CBC WITH DIFFERENTIAL 2019-09-13 [facility] of 09:51:00 [facility] POCT GLUCOSE (AUTOMATED) 2019-09-13 Abu Atherah, Univers ity of 02:18:00 [facility] MAGNESIUM 2019-09-13 [facility] of 00:05:00 [facility] TROPONIN I 2019-09-13 [facility] of 00:05:00 [facility] PROCALCITONIN 2019-09-13 [facility] of 00:05:00 [facility] POCT GLUCOSE (AUTOMATED) 2019-09-12 Abu Ather, Univers ity of 22:24:00 [facility] POCT GLUCOSE (AUTOMATED) 2019-09-12 Sang Leal ity of 19:31:00 [facility] ACTIVATED PARTIAL THRMPLAS CARLTON 2019-09-12 Sang Leal U niversity of 18:05:00 [facility] EKG-12 LEAD 2019-09-12 Sang Leal of 16:53:02 [facility] BLOOD CULTURE SCREEN 2019-09-12 Singer [facility] of 16:25:00 [facility] LACTIC ACID WHOLE BLOOD 2019-09-12 Sang Leali ty of 16:11:00 [facility] BLOOD CULTURE SCREEN 2019-09-12 Sang Leal of 16:10:00 [facility] PROTHROMBIN TIME / INR 2019-09-12 Sang Lealit y of 15:45:00 [facility] CBC WITH DIFFERENTIAL 2019-09-12 Sang Leal of 15:39:00 [facility] XR CHEST 1 VW 2019-09-12 Singer Sang [place] of 15:34:44 [facility] POCT GLUCOSE (AUTOMATED) 2019-09-12 Sang Leal ity of 15:24:00 [facility] LIPASE 2019-09-12 Sang Leal of 15:21:00 [facility] MAGNESIUM 2019-09-12 Singer [facility] of 15:21:00 [facility] TROPONIN I 2019-09-12 Singer [facility] of 15:21:00 [facility] COMP. METABOLIC PANEL ([id number]) 2019-09-12 Sang Leal iversity of 15:21:00 [facility] N-TERMINAL PRO-BNP 2019-09-12 Singer [facility] of 15:21:00 [facility] EKG-12 LEAD 2019-09-12 Singer [facility] of 15:17:38 [facility] EMERGENCY SERVICES AGREEMENTS AND 2019-09-12 [facility] of AUTHORIZATIONS 06:01:00 Unassigned, No [facility] POCT GLUCOSE (AUTOMATED) 2019-09-07 Alnas, Majd Univers ity of 18:10:00 [facility] POCT GLUCOSE (AUTOMATED) 2019-09-07 Alnas, Majd Univers ity of 14:24:00 [facility] POCT GLUCOSE (AUTOMATED) 2019-09-07 Alnas, Majd Univers ity of 02:48:00 [facility] POCT GLUCOSE (AUTOMATED) 2019-09-06 Alnas, Majd Univers ity of 23:24:00 [facility] POCT GLUCOSE (AUTOMATED) 2019-09-06 Alnas, Majd Univers ity of 18:22:00 [facility] POCT GLUCOSE (AUTOMATED) 2019-09-06 Alnas, Majd Univers ity of 13:58:00 [facility] PHOSPHORUS 2019-09-06 [facility] of 07:01:00 [facility] BASIC METABOLIC PANEL (NA, K, CL, 2019-09-06 [facility] of CO2, GLUCOSE, BUN, CREATININE, CA) 07:01:00 [facility] CBC WITH DIFFERENTIAL 2019-09-06 [facility] of 07:01:00 [facility] POCT GLUCOSE (AUTOMATED) 2019-09-06 Alnas, Majd Univers ity of 01:21:00 [facility] POCT GLUCOSE (AUTOMATED) 2019-09-05 Alnas, Majd Univers ity of 23:00:00 [facility] POCT GLUCOSE (AUTOMATED) 2019-09-05 Alnas, Majd Univers ity of 18:39:00 [facility] POCT GLUCOSE (AUTOMATED) 2019-09-05 Alnas, Majd Univers ity of 13:46:00 [facility] XR CHEST 1 VW 2019-09-05 [facility] 11:35:00 Emran [facility] PHOSPHORUS 2019-09-05 [facility] 09:46:00 [facility] MAGNESIUM 2019-09-05 [facility] 09:46:00 [facility] BASIC METABOLIC PANEL (NA, K, CL, 2019-09-05 [facility] CO2, GLUCOSE, BUN, CREATININE, CA) 09:46:00 [facility] CBC WITH DIFFERENTIAL 2019-09-05 [facility] 09:46:00 [facility] POCT GLUCOSE (AUTOMATED) 2019-09-05 Mario Lewis [facility] ity of 05:57:00 [facility] POCT GLUCOSE (AUTOMATED) 2019-09-05 Gris, Radheshyam Unive rsity of 03:18:00 [facility] POCT GLUCOSE (AUTOMATED) 2019-09-05 Gris, Radheshyam Unive rsity of 02:54:00 [facility] POCT GLUCOSE (AUTOMATED) 2019-09-04 Gris, Radheshyam Unive rsity of 22:13:00 [facility] POCT GLUCOSE (AUTOMATED) 2019-09-04 Gris, Radheshyam Unive rsity of 17:58:00 [facility] POCT GLUCOSE (AUTOMATED) 2019-09-04 Gris, Radheshyam Unive rsity of 14:17:00 [facility] IONIZED CALCIUM 2019-09-04 [facility] 12:48:00 [facility] EKG-12 LEAD 2019-09-04 Elmo [facility] 11:31:27 [facility] XR CHEST 1 VW 2019-09-04 Elmo [facility] 11:20:00 [facility] POCT GLUCOSE (AUTOMATED) 2019-09-04 Gris, Radheshyam Unive rsity of 10:48:00 [facility] MAGNESIUM 2019-09-04 Republic, [facility] 10:45:00 [facility] BASIC METABOLIC PANEL (NA, K, CL, 2019[facility]09[facility], GLUCOSE, BUN, CREATININE, CA) 10:45:00 [facility] CBC WITH DIFFERENTIAL 2019-09-04 Elmo, [facility] 10:45:00 [facility] POCT GLUCOSE (AUTOMATED) 2019-09-04 Gris, Radheshyam Unive rsity of 09:08:00 [facility] POCT GLUCOSE (AUTOMATED) 2019-09-04 Gris, Radheshyam Unive rsity of 05:33:00 [facility] POCT GLUCOSE (AUTOMATED) 2019-09-04 Gris, Radheshyam Unive rsity of 03:33:00 [facility] POCT GLUCOSE (AUTOMATED) 2019-09-04 Gris, Radheshyam Unive rsity of 01:47:00 [facility] POCT GLUCOSE (AUTOMATED) 2019-09-04 Gris, Radheshyam Unive rsity of 01:29:00 [facility] POCT GLUCOSE (AUTOMATED) 2019-09-03 Gris, Radheshyam Unive rsity of 23:26:00 [facility] XR CHEST 1 VW 2019-09-03 Elmo, [facility] of 22:20:00 [facility] POCT GLUCOSE (AUTOMATED) 2019-09-03 Gris, Radheshyam Unive rsity of 22:05:00 [facility] POCT GLUCOSE (AUTOMATED) 2019-09-03 Gris, Radheshyam Unive rsity of 17:27:00 [facility] POCT GLUCOSE (AUTOMATED) 2019-09-03 Gris, Radheshyam Unive rsity of 14:41:00 [facility] XR CHEST 1 VW 2019-09-03 [facility] 11:25:00 [facility] E[facility]-12 LEAD 2019-09-03 Republic, [facility] 11:12:03 [facility] MAGNESIUM 2019-09-03 [facility] 09:41:00 [facility] BASIC METABOLIC PANEL (NA, K, CL, 2019-09-03 [facility], [facility] of CO2, GLUCOSE, BUN, CREATININE, CA) 09:41:00 [facility] CBC WITH DIFFERENTIAL 2019-09-03 [facility] 09:40:00 [facility] POCT GLUCOSE (AUTOMATED) 2019-09-03 Gris, Radheshyam Unive rsity of 09:04:00 [facility] POCT GLUCOSE (AUTOMATED) 2019-09-03 Gris, Radheshyam Unive rsity of 06:01:00 [facility] POCT GLUCOSE (AUTOMATED) 2019-09-03 Gris, Radheshyam Unive rsity of 01:24:00 [facility] POCT GLUCOSE (AUTOMATED) 2019-09-02 Gris, Radheshyam Unive rsity of 22:05:00 [facility] POCT GLUCOSE (AUTOMATED) 2019-09-02 Gris, Radheshyam Unive rsity of 18:41:00 [facility] POCT GLUCOSE (AUTOMATED) 2019-09-02 Gris, Radhumzaam Unive rsity of 13:45:00 [facility] XR CHEST 1 VW 2019-09-02 [facility] of 12:20:00 [facility] POCT GLUCOSE (AUTOMATED) 2019-09-02 Gris, Radluigicipriano Unive rsity of 10:14:00 [facility] PHOSPHORUS 2019-09-02 MtMario monroy [place] of 07:23:00 [facility] MAGNESIUM 2019-09-02 [facility] of 07:23:00 [facility] HEPATIC FUNCTION PANEL ([id number]) 2019-09-02 Mario Lewis niversity of (ALB,T.PRO,BILI 07:23:00 [facility],BU/BC,ALT,AST,ALK PHOS) [place] BASIC METABOLIC PANEL (NA, K, CL, 2019-09-02 [facility] [place] of CO2, GLUCOSE, BUN, CREATININE, CA) 07:23:00 [facility] PROFILE / HEMOGRAM 2019-09-02 Mario Lewis [place] of 07:23:00 [facility] ABG+COOX+NA+K+GLU+CA2+ 2019-09-[address] [facility] [facility] 07:22:00 [facility] POCT GLUCOSE (AUTOMATED) 2019-09-02 Esther Landryam Unive rsity of 06:27:00 [facility] POCT GLUCOSE (AUTOMATED) 2019-09-02 [facility] Un[facility] rsity of 05:03:00 [facility] AC PANEL 20 + LACTIC ACID 2019-09-02 [place], Shuab Univer sity of 03:02:00 [facility] POCT GLUCOSE (AUTOMATED) 2019-09-02 Gris, Radheshyam Unive rsity of 01:18:00 [facility] POCT GLUCOSE (AUTOMATED) 2019-09-01 [facility] of 23:54:00 [facility] PHOSPHORUS 2019-09-01 [place], [facility] of 23:32:00 [facility] MAGNESIUM 2019-09-01 Elmo, [facility] of 23:32:00 [facility] BASIC METABOLIC PANEL (NA, K, CL, 2019-09-01 [place], [facility] of CO2, GLUCOSE, BUN, CREATININE, CA) 23:32:00 [facility] ACTIVATED PARTIAL THRMPLAS CARLTON 2019-09-01 Elmo, uab U niversity of 23:32:00 [facility] ABG+COOX+NA+K+GLU+CA2+ 2019-09-01 [facility] y of 23:31:00 [facility] MRSA / MSSA SCREEN BY PCR, BRITNEY 2019-09-01 [facility] of 23:12:00 [facility] PREPARE PACKED RBC 2019-09-01 Republic, [facility] of 20:58:25 [facility] PROTHROMBIN TIME / INR 2019-09-01 Republic, [facility] y of 20:47:00 [facility] ACTIVATED PARTIAL THRMPLAS CARLTON 2019-09-01 Republic, uab U niversity of 20:47:00 [facility] AC PANEL 20 + LACTIC ACID 2019-09-01 Republic, [facility] sity of 20:47:00 [facility] TRANSFUSE PACKED RBC 2019-09-01 Republic, [facility] of 20:35:41 [facility] POCT GLUCOSE (AUTOMATED) 2019-09-01 [facility] rsity of 20:32:00 [facility] EKG-12 LEAD 2019-09-01 Elmo, [facility] of 20:01:09 [facility] XR CHEST 1 VW 2019-09-01 [facility] of 19:41:56 [facility] PHOSPHORUS 2019-09-01 Republic, [facility] of 19:38:00 [facility] MAGNESIUM 2019-09-01 Elmo, [facility] of 19:38:00 [facility] BASIC METABOLIC PANEL (NA, K, CL, 2019-09-01 [facility] of CO2, GLUCOSE, BUN, CREATININE, CA) 19:38:00 [facility] CBC WITH DIFFERENTIAL 2019-09-01 [facility] of 19:38:00 [facility] ABG+COOX+NA+K+GLU+CA2+ 2019-09-01 [facility] y of 19:30:00 [facility] ISTAT ACUTE CARE ARTERIAL 2019-09-01 Gris, [facility] ersity of 17:59:00 [facility] POCT ACT HIGH RANGE 2019-09-01 Gris, [facility] of 17:56:00 [facility] TRANSFUSE PACKED RBC 2019-09-01 [facility], [facility] y of 17:32:38 [facility] ACUTE CARE ARTERIAL 2019-09-01 Gris, [facility] ersity of 17:04:00 [facility] POCT ACT HIGH RANGE 2019-09-01 [facility], [facility] of 17:01:00 [facility] HEMOGLOBIN 2019-09-01 [facility], [facility] of 16:58:00 [facility] HEMATOCRIT 2019-09-01 Domingo, [facility] of 16:58:00 [facility] PLATELET COUNT 2019-09-01 Domingo, [facility] of 16:58:00 [facility] PROTHROMBIN TIME / INR 2019-09-01 [facility] of 16:58:00 [facility] ACTIVATED PARTIAL THRMPLAS CARLTON 2019-09-01 [facility], [facility] of 16:58:00 [facility] FIBRINOGEN 2019-09-01 Domingo, [facility] of 16:58:00 [facility] ISTAT ACUTE CARE ARTERIAL 2019-09-01 Gris, [facility] ersity of 16:38:00 [facility] POCT ACT HIGH RANGE 2019-09-01 Gris, [facility] of 16:35:00 [facility] ISTAT ACUTE CARE ARTERIAL 2019-09-01 Gris, [facility] ersity of 16:07:00 [facility] POCT ACT HIGH RANGE 2019-09-01 [facility], [facility] of 16:05:00 [facility] Gris, [facility] ersity of 15:40:00 [facility] POCT ACT HIGH RANGE 2019-09-01 [facility], [facility] 15:21:00 [facility] TRANSFUSE PACKED RBC 2019-09-01 [facility] y of 15:15:20 [facility] TRANSFUSE PACKED RBC 2019-09-01 [facility] y of 15:15:01 [facility] POCT ACT HIGH RANGE 2019-09-01 Gris, [facility] of 15:10:00 [facility] 2019-09-01 [facility], [facility] ersity of 15:03:00 [facility] POCT ACT HIGH RANGE 2019-09-01 [facility], [facility] of 15:00:00 [facility] PREPARE PACKED RBC 2019-09-01 [facility] of 14:20:50 [facility] TRANSFUSE PACKED RBC 2019-09-01 [facility] y of 14:06:15 [facility] ACUTE CARE ARTERIAL 2019-09-01 Gris, [facility] ersity of 13:58:00 [facility] POCT ACT HIGH RANGE 2019-09-01 [facility], [facility] [facility] of 13:55:00 [facility] PREPARE PACKED RBC 2019-09-01 Republic, [facility] of 12:50:33 [facility] CORONARY ARTERY BYPASS GRAFT 2019-09-01 [place], [facility] versity of 12:35:00 [facility] EKG-12 LEAD 2019-09-01 Elmo, [facility] of 11:59:37 [facility] POCT GLUCOSE (AUTOMATED) 2019-09-01 Gris, [facility] Un[facility] rsity of 11:28:00 [facility] POCT GLUCOSE (AUTOMATED) 2019-09-01 Gris, [facility] Unive rsity of 09:35:00 [facility] POCT GLUCOSE (AUTOMATED) 2019-09-01 Gris, [facility] Unive rsity of 05:58:00 [facility] POCT GLUCOSE (AUTOMATED) 2019-09-01 Gris, [facility] Unive rsity of 02:15:00 [facility] POCT GLUCOSE (AUTOMATED) 2019-08-31 Gris, [facility] Unive rsity of 22:11:00 [facility] HB ABO GROUPING 2019-08-31 [facility] of 20:04:00 [facility] POCT GLUCOSE (AUTOMATED) 2019-08-31 Gris, Radheshyam Unive rsity of 17:32:00 [facility] POCT GLUCOSE (AUTOMATED) 2019-08-31 Gris, Radheshyam Unive rsity of 13:38:00 [facility] POCT GLUCOSE (AUTOMATED) 2019-08-31 Gris, Radheshyam Unive rsity of 10:30:00 [facility] CBC WITH DIFFERENTIAL 2019-08-31 Pablo Curiel [facility] ty of 10:24:00 [facility] BASIC METABOLIC PANEL (NA, K, CL, 2019-08-31 Derrick Curiel [facility] of CO2, GLUCOSE, BUN, CREATININE, CA) 10:23:00 [facility] POCT GLUCOSE (AUTOMATED) 2019-08-31 Gris, Radheshyam Unive rsity of 06:15:00 [facility] POCT GLUCOSE (AUTOMATED) 2019-08-31 Gris, Radheshyam Unive rsity of 02:07:00 [facility] POCT GLUCOSE (AUTOMATED) 2019-08-30 Gris, Radheshyam Unive rsity of 21:31:00 [facility] POCT GLUCOSE (AUTOMATED) 2019-08-30 Gris, Radheshyam Unive rsity of 17:45:00 [facility] POCT GLUCOSE (AUTOMATED) 2019-08-30 Gris, Radheshyam Unive rsity of 13:52:00 [facility] POCT GLUCOSE (AUTOMATED) 2019-08-30 Gris, Radheshyam Unive rsity of 11:02:00 [facility] POCT GLUCOSE (AUTOMATED) 2019-08-30 Gris, Radheshyam Unive rsity of 05:36:00 [facility] POCT GLUCOSE (AUTOMATED) 2019-08-30 Gris, Radheshyam Unive rsity of 03:26:00 [facility] POCT GLUCOSE (AUTOMATED) 2019-08-29 Gris, Radheshyam Unive rsity of 17:14:00 [facility] POCT GLUCOSE (AUTOMATED) 2019-08-29 Gris, Radheshyam Unive rsity of 13:44:00 [facility] POCT GLUCOSE (AUTOMATED) 2019-08-29 Gris, Radheshyam Unive rsity of 09:52:00 [facility] COMP. METABOLIC PANEL ([id number]) 2019-08-29 Jadiel Kemp iversity of 09:43:00 [facility] POCT GLUCOSE (AUTOMATED) 2019-08-29 Gris, Radheshyam Unive rsity of 06:19:00 [facility] POCT GLUCOSE (AUTOMATED) 2019-08-29 Gris, Radheshyam Unive rsity of 03:44:00 [facility] US ABDOMEN LIMITED WITH DOPPLER 2019-08-28 Jadiel Kemp [place] of 22:49:00 [facility] POCT GLUCOSE (AUTOMATED) 2019-08-28 Gris, Radheshyam Unive rsity of 21:32:00 [facility] POCT GLUCOSE (AUTOMATED) 2019-08-28 Gris, Radheshyam Unive rsity of 17:20:00 [facility] MAGNESIUM 2019-08-28 [facility] of 14:28:00 [facility] BASIC METABOLIC PANEL (NA, K, CL, 2019-08-28 [facility] of CO2, GLUCOSE, BUN, CREATININE, CA) 14:28:00 [facility] CBC WITH DIFFERENTIAL 2019-08-28 [facility] of 14:28:00 [facility] POCT GLUCOSE (AUTOMATED) 2019-08-28 Gris, Radheshyam Unive rsity of 13:25:00 [facility] POCT GLUCOSE (AUTOMATED) 2019-08-28 Girs, Radheshyam Unive rsity of 07:19:00 [facility] POCT GLUCOSE (AUTOMATED) 2019-08-28 Gris, Radheshyam Unive rsity of 03:00:00 [facility] POCT GLUCOSE (AUTOMATED) 2019-08-27 Gris, Radheshyam Unive rsity of 21:45:00 [facility] POCT GLUCOSE (AUTOMATED) 2019-08-27 Gris, Radheshyam Unive rsity of 17:51:00 [facility] CT THORAX WO CONTRAST 2019-08-27 [facility] of 16:53:12 [facility] POCT GLUCOSE (AUTOMATED) 2019-08-27 Gris, Radheshyam Unive rsity of 13:54:00 [facility] POCT GLUCOSE (AUTOMATED) 2019-08-27 Gris, Radheshyam Unive rsity of 10:34:00 [facility] POCT GLUCOSE (AUTOMATED) 2019-08-27 Gris, Radheshyam Unive rsity of 05:56:00 [facility] POCT GLUCOSE (AUTOMATED) 2019-08-27 Gris, Radheshyam Unive rsity of 04:11:00 [facility] POCT GLUCOSE (AUTOMATED) 2019-08-27 Gris, Radheshyam Unive rsity of 01:25:00 [facility] POCT GLUCOSE (AUTOMATED) 2019-08-26 Gris, Radheshyam Unive rsity of 23:42:00 [facility] POCT GLUCOSE (AUTOMATED) 2019-08-26 Gris, Radheshyam Unive rsity of 22:59:00 [facility] ACUTE CARE ARTERIAL BLOOD GAS 2019-08-26 Jadiel Kemp iversity of 20:19:00 [facility] BILATERAL VEIN MAPPING BY VASCULAR 2019-08-26 Jadiel Kemp [place] of LAB 19:12:01 [facility] POCT GLUCOSE (AUTOMATED) 2019-08-26 Gris, Radheshyam Unive rsity of 18:06:00 [facility] POCT GLUCOSE (AUTOMATED) 2019-08-26 Gris, Radheshyam Unive rsity of 15:29:00 [facility] COLONOSCOPY (ENDO) 2019-08-26 Grzegorz Carpio [place] o f 14:06:55 [facility] SURGICAL PATHOLOGY EXAM 2019-08-26 Marlo Osman [facility] it of 13:44:00 [facility] COLONOSCOPY 2019-08-26 Marlo Osman [place] of 13:20:00 [facility] ESOPHAGOGASTRODUODENOSCOPY 2019-08-26 Marlo Osman [facility] ersity of 13:20:00 [facility] EGD (ENDO) 2019-08-26 Grzegorz Carpio [place] of 12:37:08 [facility] POCT GLUCOSE (AUTOMATED) 2019-08-26 Gris, Radheshyam Unive rsity of 11:51:00 [facility] POCT GLUCOSE (AUTOMATED) 2019-08-25 Gris, Radheshyam Unive rsity of 21:37:00 [facility] POCT GLUCOSE (AUTOMATED) 2019-08-25 Gris, Radheshyam Unive rsity of 20:44:00 [facility] POCT GLUCOSE (AUTOMATED) 2019-08-25 Gris, Radheshyam Unive rsity of 20:43:00 [facility] POCT GLUCOSE (AUTOMATED) 2019-08-25 Gris, Radheshyam Unive rsity of 20:11:00 [facility] POCT GLUCOSE (AUTOMATED) 2019-08-25 Gris, Radheshyam Unive rsity of 19:43:00 [facility] POCT GLUCOSE (AUTOMATED) 2019-08-25 Gris, Radheshyam Unive rsity of 18:58:00 [facility] POCT GLUCOSE (AUTOMATED) 2019-08-25 Gris, Radheshyam Unive rsity of 18:36:00 [facility] POCT GLUCOSE (AUTOMATED) 2019-08-25 Gris, Radheshyam Unive rsity of 18:17:00 [facility] POCT GLUCOSE (AUTOMATED) 2019-08-25 Gris, Radheshyam Unive rsity of 18:10:00 [facility] POCT GLUCOSE (AUTOMATED) 2019-08-25 Gris, Radheshyam Unive rsity of 18:02:00 [facility] POCT GLUCOSE (AUTOMATED) 2019-08-25 Gris, Radheshyam Unive rsity of 17:56:00 [facility] BASIC METABOLIC PANEL (NA, K, CL, 2019-08-25 [facility] of CO2, GLUCOSE, BUN, CREATININE, CA) 10:41:00 [facility] CBC WITH DIFFERENTIAL 2019-08-25 [facility] XR KUB 2019-08-25 [facility] 04:48:36 [facility] POCT GLUCOSE (AUTOMATED) 2019-08-25 Harris Garza [facility] ity of 02:02:00 [facility] POCT GLUCOSE (AUTOMATED) 2019-08-24 Harris Garza [facility] ity of 22:18:00 [facility] POCT GLUCOSE (AUTOMATED) 2019-08-24 Harris Gar[facility] ity of 18:17:00 [facility] POCT GLUCOSE (AUTOMATED) 2019-08-24 Kayla, [facility] ity of 13:57:00 [facility] BASIC METABOLIC PANEL (NA, K, CL, 2019-08-24 [facility] of CO2, GLUCOSE, BUN, CREATININE, CA) 12:02:00 [facility] CBC WITH DIFFERENTIAL 2019-08-24 [facility] of 12:02:00 [facility] POCT GLUCOSE (AUTOMATED) 2019-08-24 Davidah, [facility] ity of 10:27:00 [facility] POCT GLUCOSE (AUTOMATED) 2019-08-24 Davidah, [facility] ity of 05:43:00 [facility] POCT GLUCOSE (AUTOMATED) 2019-08-24 Davidah, [facility] ity of 01:53:00 [facility] POCT GLUCOSE (AUTOMATED) 2019-08-23 Kayla, [facility] ity of 23:06:00 [facility] IRON 2019-08-23 [facility] of 21:20:00 [facility] TOTAL IRON BINDING CAPACITY 2019-08-23 [facility] vers[facility] of 21:20:00 [facility] POCT GLUCOSE (AUTOMATED) 2019-08-23 Kayla, [facility] ity of 18:03:00 [facility] POCT GLUCOSE (AUTOMATED) 2019-08-23 Kayla, [facility] ity of 14:22:00 [facility] POCT GLUCOSE (AUTOMATED) 2019-08-23 Kayla, [facility] ity of 11:49:00 [facility] MAGNESIUM 2019-08-23 [facility] of 10:25:00 [facility] BASIC METABOLIC PANEL (NA, K, CL, 2019-08-23 [facility] of CO2, GLUCOSE, BUN, CREATININE, CA) 10:25:00 [facility] CBC WITH DIFFERENTIAL 2019-08-23 [facility] of 10:25:00 [facility] N-TERMINAL PRO-BNP 2019-08-23 [facility] of 10:25:00 [facility] POCT GLUCOSE (AUTOMATED) 2019-08-23 Kayla, [facility] ity of 06:21:00 [facility] POCT GLUCOSE (AUTOMATED) 2019-08-23 Davidah, [facility] ity of 01:52:00 [facility] POCT GLUCOSE (AUTOMATED) 2019-08-22 [facility] ity of 23:30:00 [facility] POCT GLUCOSE (AUTOMATED) 2019-08-22 [facility] ity of 17:42:00 [facility] XR CHEST 1 VW 2019-08-22 [facility] of 10:25:58 [facility] POCT GLUCOSE (AUTOMATED) 2019-08-22 [facility] ity of 09:59:00 [facility] CBC WITH DIFFERENTIAL 2019-08-22 [facility] of 08:01:00 [facility] MAGNESIUM 2019-08-22 [facility] of 08:00:00 [facility] BASIC METABOLIC PANEL (NA, K, CL, 2019-08-22 [facility] of CO2, GLUCOSE, BUN, CREATININE, CA) 08:00:00 [facility] N-TERMINAL PRO-BNP 2019-08-22 [facility] of 08:00:00 [facility] POCT GLUCOSE (AUTOMATED) 2019-08-22 [facility] of 06:01:00 [facility] POCT GLUCOSE (AUTOMATED) 2019-08-22 [facility] ity of 03:04:00 [facility] CATH PROCEDURE LOG 2019-08-22 [facility] of 00:10:24 Unassigned, No [facility] POCT GLUCOSE (AUTOMATED) 2019-08-21 [facility] ity of 22:39:00 [facility] POCT GLUCOSE (AUTOMATED) 2019-08-21 [facility] ity of 18:30:00 [facility] POCT GLUCOSE (AUTOMATED) 2019-08-21 [facility] it[facility] of 13:53:00 [facility] POCT GLUCOSE (AUTOMATED) 2019-08-21 [facility] ity of 10:01:00 [facility] MRSA / MSSA SCREEN BY BRITNEY MTZ 2019-08-21 [facility] of 08:04:00 [facility] BASIC METABOLIC PANEL (NA, K, CL, 2019-08-21 Faustino Mason [place] of CO2, GLUCOSE, BUN, CREATININE, CA) 08:03:00 [facility] CBC WITH DIFFERENTIAL 2019-08-21 Faustino Mason [place] of 08:03:00 [facility] N-TERMINAL PRO-BNP 2019-08-21 Marlon andrzej [place] of 08:03:00 [facility] POCT GLUCOSE (AUTOMATED) 2019-08-21 [facility] ity of 05:11:00 [facility] POCT GLUCOSE (AUTOMATED) 2019-08-21 [facility] ity of 03:22:00 [facility] EKG-12 LEAD 2019-08-21 [facility], [facility] of 02:36:48 [facility] EKG-12 LEAD 2019-08-21 [facility], [facility] of 02:36:30 [facility] POCT GLUCOSE (AUTOMATED) 2019-08-20 Harris Gar[facility] ity of 22:21:00 [facility] POCT GLUCOSE (AUTOMATED) 2019-08-20 [facility] Gar[facility] ity of 17:35:00 [facility] POCT GLUCOSE (AUTOMATED) 2019-08-20 [facility] ity of 13:40:00 [facility] URIC ACID 2019-08-20 Marlon [facility] of 09:36:00 [facility] TROPONIN I 2019-08-20 Marlon [facility] of 09:36:00 [facility] BASIC METABOLIC PANEL (NA, K, CL, 2019-08-20 [facility] CO2, GLUCOSE, BUN, CREATININE, CA) 09:36:00 [facility] CBC WITH DIFFERENTIAL 2019-08-20 Faustino Mason [place] of 09:36:00 [facility] N-TERMINAL PRO-BNP 2019-08-20 Marlon [facility] of 09:36:00 [facility] POCT GLUCOSE (AUTOMATED) 2019-08-20 [facility] of 05:32:00 [facility] POCT GLUCOSE (AUTOMATED) 2019-08-20 [facility] ity of 02:20:00 [facility] VITAMIN B12, LEVEL 2019-08-19 [facility] of 22:59:00 [facility] FOLATE 2019-08-19 [facility] of 22:59:00 [facility] TROPONIN I 2019-08-19 Anika Cisneros of 22:59:00 [facility] IRON PANEL 2019-08-19 David Harris [place] of 22:59:00 [facility] VITAMIN D, 25-OH 2019-08-19 David, [facility] of 22:59:00 [facility] POCT GLUCOSE (AUTOMATED) 2019-08-19 [facility] of 21:22:00 [facility] POCT GLUCOSE (AUTOMATED) 2019-08-19 [facility] ity of 16:58:00 [facility] ECHO ROUTINE W/DOPPLER COLOR 2019-08-19 Anika Cisneros [facility] versity of 14:58:29 [facility] POCT GLUCOSE (AUTOMATED) 2019-08-19 [facility] it[facility] of 13:26:00 [facility] POCT GLUCOSE (AUTOMATED) 2019-08-19 [facility] of 09:58:00 [facility] PHOSPHORUS 2019-08-19 Marlon [facility] of 08:59:00 [facility] URIC ACID 2019-08-19 Marlon, [facility] of 08:59:00 [facility] MAGNESIUM 2019-08-19 [facility], [facility] of 08:59:00 [facility] FERRITIN SERUM 2019-08-19 DavidHarris [place] of 08:59:00 [facility] TROPONIN I 2019-08-19 [facility], [facility] of 08:59:00 [facility] BASIC METABOLIC PANEL (NA, K, CL, 2019-08-19 [facility], [facility] of CO2, GLUCOSE, BUN, CREATININE, CA) 08:59:00 [facility] CBC WITH DIFFERENTIAL 2019-08-19 [facility] of 08:59:00 [facility] N-TERMINAL PRO-BNP 2019-08-19 [facility], [facility] of 08:59:00 [facility] POCT GLUCOSE (AUTOMATED) 2019-08-19 [facility] it[facility] of 04:38:00 [facility] URIC ACID 2019-08-19 Marlon, [facility] of 02:15:00 [facility] LIPID PANEL ([id number])(TOTAL 2019-08-19 Anika Cisneros [facility] sity of CHOLESTEROL, TRIGLYCERIDES, HDL) 02:15:00 [facility] TROPONIN I 2019-08-19 [facility] of 02:14:00 [facility] POCT GLUCOSE (AUTOMATED) 2019-08-19 DavidHarris cha [facility] ity of 01:10:00 [facility] POCT GLUCOSE (AUTOMATED) 2019-08-18 [facility] ity of 23:31:00 [facility] XR CHEST 2 VW 2019-08-18 pelon [facility] of 20:56:25 [facility] LIPASE 2019-08-18 [facility] of 20:42:00 [facility] TROPONIN I 2019-08-18 [facility], [facility] of 20:42:00 [facility] THYROID STIMULATING HORMONE 2019-08-18 [facility] ersity of 20:42:00 [facility] COMP. METABOLIC PANEL ([id number]) 2019-08-18 [facility] of 20:42:00 [facility] LIPID PANEL ([id number])(TOTAL 2019-08-18 [facility] sity of CHOLESTEROL, TRIGLYCERIDES, HDL) 20:42:00 [facility] CBC WITH DIFFERENTIAL 2019-08-18 [facility] of 20:42:00 [facility] GLYCOSYLATED HEMOGLOBIN (A1C) 2019-08-18 Anika Cisneros iversity of 20:42:00 [facility] PROTHROMBIN TIME / INR 2019-08-18 [facility] of 20:42:00 [facility] ACTIVATED PARTIAL THRMPLAS CARLTON 2019-08-18 [facility] of 20:42:00 [facility] N-TERMINAL PRO-BNP 2019-08-18 Shanae Barney [place] of 20:42:00 [facility] EKG-12 LEAD 2019-08-18 [facility] of 20:32:11 [facility] EKG-12 LEAD 2019-08-18 [facility] of 20:31:05 [facility] NOTICE OF PRIVACY PRACTICES 2019-08-18 [facility] ersity of 20:23:50 Unassigned, No [facility] CONSENT/REFUSAL FOR DIAGNOSIS AND 2019-08-18 [facility] of TREATMENT 20:23:39 Unassigned, No [facility] ASSIGNMENT OF BENEFITS 2019-08-18 [facility] of 20:23:13 Unassigned, No [facility] ADMISSION 2019-08-18 Doctor [facility] 06:01:00 Unassigned, No [facility] History of Cyst excision Univers ity [facility] History of Debridement Universit y [facility] History of Hand Surgery Univers ty [facility] History of [facility] History of University of Esophagogastroduodenoscopy [place] [facility] History of Colonoscopy Universit [facility] History of Surgical removal of U niversity of foreign body [place] [facility] History of CABG [facility] Encounters Start End Encounter Admission Attending Care Care Encounter Source Date/Time Date/Time Type Type Clinicians Facility Department ID 2021-09-13 Outpatient [id number] E[facility] ENCPL 11:20:04 0302 2021-09-07 Outpatient 3 [id number] E[facility] REF [id number] E[facility] 16:36:24 2232021-09-06 Outpatient 3 [id number] E[facility] REF [id number] [facility] 10:24:03 0223 2021-09-05 Outpatient 3 [id number] E[facility] REF [id number] [facility] 14:24:39 0222 2021-08-10 Outpatient 3 [id number] ENCPL BEST [id number] E[facility]PL 13:27:30 [id number] 2021-08-10 Outpatient 3 [id number] E[facility] REF [id number] E[facility] 13:24:43 1201 2021-08-10 Outpatient 3 [id number] ENC[facility] REF [id number] E[facility]PL 13:23:12 [id number] 2021-08-09 Outpatient MIKKILINENI [facility]ML[facility] 14:05:[facility] , [id number] [facility] 2021-08-09 Outpatient MIKKILINENI [facility]LMLC [facility] [id number] [facility] 13:09:53 , [id number] [facility] 2021-08-09 Outpatient MIKKILINENI STLC [facility] [id number] [facility] 12:37:31 , [id number] [facility] 2021-08-09 Out[facility] [id number] [facility] 12:31:11 , [id number] [facility] 2021[facility]09 [facility] [id number] 12:15:55 [id number] Cristela - [facility] l [facility] ent Clinics 2021-05-14 Inpatient Cyndee STARKS [facility] [id number] Univers 12:00:24 VONDA ity [facility] 2021-05-12 Emergency [facility] [id number] Univers 23:59:53 ity [facility] 2021-05-11 Emergency [facility] [id number] Univers 17:53:57 ity [facility] 2021-04-12 2021-04-12 [facility] [id number] Univers 00:00:00 00:00:00 Derrick PRIMARY [id number] it [id number] [id number] [address] [place] 2020-12-27 2020-12-27 Refill [facility] [id number] Univers 00:00:00 00:00:00 Derrick PRIMARY [id number] it y [id number] [id number] [address] [place] 2020-12-27 2020-12-27 Refill [facility] [id number] 00:00:00 00:00:00 Derrick PRIMARY [id number] CARE [id number] PAVILLION [id number] 389 2020-12-16 2020-12-16 Orders Doctor CUNHA [id number] Univers 00:00:00 00:00:00 Only Unassigned, LINK [id number] ity of [place] [facility] [id number] You as [id number] [facility] 009 Branch 2020-12-16 2020-12-16 Orders Doctor CUNHA [id number] 00:00:00 00:00:00 Only Unassigned, LINK [id number] [place] [facility] [id number] 2020-11-30 2020-11-30 Patient Jatin Douglas [id number] Univers 00:00:00 00:00:00 Outreach Hugh Mcnally [id number] ity [id number] [id number] [facility] 403 Branch 2020-11-30 2020-11-30 Patient Jatin Douglas [id number] 00:00:00 00:00:00 Outreach Hugh Mcnally [id number] [place] [id number] 403 2020-11-22 2020-11-22 Nurse ALPHONSE Villareal [id number] Univers 00:00:00 00:00:00 Triage Liane Ulloa LINK [id number] i ty of [facility] [id number] You as [id number] [facility] 019 Branch 2020-11-22 2020-11-22 Nurse ALPHONSE Villareal [id number] 00:00:00 00:00:00 Triage Liane Ulloa LINK [id number] HOSPITAL [id number] [id number] 019 2020-11-16 2020-11-16 Orders Doctor ALPHONSE 1.2.840.114 [id number] Univers 00:00:00 00:00:00 Only Unassigned, LINK 350.1.13.10 ity of [place] [facility] 4.2.7.2.686 You as [phone] [facility] [address] 2020-11-16 2020-11-16 Orders Doctor ALPHONSE 1.2.840.114 [id number] 00:00:00 00:00:00 Only Unassigned, LINK 350.1.13.10 [place] [facility] 4.2.7.2.686 [phone] 009 2020-11-11 2020-11-11 Telephone Parks, [facility] 1.2.045.286 [id number] 9369 [facility] 00:00:00 00:00:00 Derrick PRIMARY 350.1.13.10 it y of [place] [phone] Ut dical [address] 2020-11-11 2020-11-11 Telephone Parks, [facility] 1.2.082.231 [id number] 9369 00:00:00 00:00:00 Derrick PRIMARY 350.1.13.10 CARE 4.2.7.2.686 PAVILLION [phone] 389 2020-11-10 2020-11-10 Transition Jatin Campbell 1.2.840.114 [id number] Univers 00:00:00 00:00:00 of Care Natahlia Mcnally 350.1.13.10 it y of [place]2.7.2.[place] [phone] [facility] 403 [address] 2020-11-10 2020-11-10 Refill [facility] 1.2.840.114 [id number] Univers 00:00:00 00:00:00 Haris PRIMARY 350.1.13.10 it y of [place]2.7.2.[place] [phone] Ut dical [address] 2020-11-10 2020-11-10 Transition Jatin Campbell 1.2.840.114 [id number] 00:00:00 00:00:00 of Care Nathalia Mcnally 350.1.13.10 [place] 4.2.7.2.686 [id number] 403 2020-11-10 2020-11-10 [facility] 1.2.840.114 [id number] 82 00:00:00 00:00:00 Haris PRIMARY 350.1.13.10 [place] CARE 4.2.7.2.686 PAVILLION [phone] 389 2020-10-22 2020-11-09 [facility] Vonda Starks 1.2.840.1 14 [id number] Univers 06:28:00 18:56:00 Encounter Antonio Villa 350.1.13.10 ity of [facility] 4.2.7 .2.686 David [place] [phone] Medical Haris Sullivan 096 [address] 2020-08-02 2020-08-02 Letter Gale CUNHA 1.2.840.114 [id number] Univers 00:00:00 00:00:00 (Out) , LINK 350.1.13.10 it y of [facility] 4.2.7.2.686 [facility] [phone] [facility] 043 Branch 2020-07-04 2020-07-04 Orders Doctor ALPHONSE 1.2.840.114 [id number] Univers 00:00:00 00:00:00 Only Unassigned, LINK 350.1.13.10 ity of [place] [facility] 4.2.7.2.686 You as [phone] [facility] [address] 2020-05-03 2020-05-03 Emergency [facility] 1.2.840.114 [id number] Univers 14:26:00 16:25:00 Christa Isaac 350.1.13.10 ity of [place].2.7.2.686 [place] [facility] [phone] [facility] 084 [address] 2020-05-03 2020-05-03 Orders Doctor ALPHONSE 1.2.840.114 [id number] Univers 00:00:00 00:00:00 Only Unassigned, LINK 350.1.13.10 ity of [place] [facility] 4.2.7.2.686 You as [phone] [facility] [address] 2020-05-03 2020-05-03 Patient Jatin Douglas 1.2.840.114 [id number] Univers 00:00:00 00:00:00 Outreach Hugh Mcnally 350.1.13.10 ity of [place] 4.2.7.2.686 [place] [phone] [facility] [address] 2020-02-05 2020-02-05 Patient Trupti Ahn 1.2.840.114 [id number] Univers 00:00:00 00:00:00 Outreach E Mcnally 350.1.13.10 i ty [place] [phone] [address] 2020-01-28 2020-01-28 Patient Trupti Ahn 1.2.840.114 76 [id number] Univers 00:00:00 00:00:00 Outreach E Mcnally 350.1.13.10 i ty [place].2.[place] [phone] [address] 2020-01-18 2020-01-18 Patient Jatin Douglas 1.2.840.114 [id number] Univers 00:00:00 00:00:00 Outreach Hugh Tejeda Mcnally 350.1.13.10 ity of [place]2.[place].2.[place] [phone] [address] 2020-01-08 2020-01-08 Patient Jatin Douglas 1.2.840.114 [id number] Univers 00:00:00 00:00:00 Outreach Hugh Tejeda Mcnally 350.1.13.10 ity of [place]2.[place].2.[place] [id number] [address] 2020-01-07 2020-01-07 Patient Trupti Ahn 1.2.840.114 [id number] Univers 00:00:00 00:00:00 Outreach E Mcnally 350.1.13.10 i [place] [phone] [address] 2019-12-22 2019-12-22 Patient Trupti Ahn 1.2.840.114 76 [id number] Univers 00:00:00 00:00:00 Outreach E Mcnally 350.1.13.10 i ty [place]2.[place].2.[place] [id number] [address] 2019-12-16 2019-12-16 Patient Trupti Ahn 1.2.840.114 75 [id number] Univers 00:00:00 00:00:00 Outreach E Mcnally 350.1.13.10 i ty [place] 4.2.7.2.[place] [phone] [address] 2019-12-11 2019-12-11 Patient Jatin Douglas 1.2.840.114 [id number] Univers 00:00:00 00:00:00 Outreach Hugh Whitey 350.1.13.10 ity of [place]2.7.2.[place] [phone] [address] 2019-12-10 2019-12-10 Patient Jatin Douglas 1.2.840.114 [id number] Univers 00:00:00 00:00:00 Outreach Hugh Tejeda Mcnally 350.1.13.10 ity of [place].7.2.[place] [phone] [address] 2019-12-03 2019-12-03 Patient Jatin Douglas 1.2.840.114 [id number] Univers 00:00:00 00:00:00 Outreach Hugh Whitey 350.1.13.10 ity of [place].2.7.2.[place] [id number] [address] 2019-12-02 2019-12-02 Patient Trupti Ahnanders 1.2.840.114 75 [id number] Univers 00:00:00 00:00:00 Outreach Vee Mcnally 350.1.13.10 i ty [place]2.7.2.[place] [phone] [address] 2019-12-01 2019-12-01 Patient Jatin Douglas 1.2.840.114 [id number] Univers 00:00:00 00:00:00 Outreach Hugh Tejeda Mcnally 350.1.13.10 ity of [place] 4[place]2.7.2.[place] [id number] [address] 2019-11-26 2019-11-26 Patient Jatin Douglas 1.2.840.114 [id number] Univers 00:00:00 00:00:00 Outreach Hugh Whitey 350.1.13.10 ity of [place]2.7.2.[place] [phone] [address] 2019-11-25 2019-11-25 Patient Trupti Ahnanders 1.2.840.114 75 [id number] Univers 16:38:53 16:38:57 Outreach E Mcnally 350.1.13.10 i ty [place] 4.2.7.2.[place] [id number] [address] 2019-11-25 2019-11-25 Outpatient [facility] [id number] -20 Univers 12:00:00 12:00:00 [id number] ity of [facility] 2019-11-20 2019-11-20 Patient Trupti Ahn 1.2.840.114 75 [id number] Univers 00:00:00 00:00:00 Outreach E Mcnally 350.1.13.10 i ty [place]2.[place].2.[place] [phone] [address] 2019-11-16 2019-11-16 Orders Doctor ALPHONSE 1.2.840.114 [id number] Univers 00:00:00 00:00:00 Only Unassigned, LINK 350.1.13.10 ity of [place] [facility] 4.2.7.2.686 You as [phone] [address] 2019-11-11 2019-11-11 Patient Jatin Douglas 1.2.840.114 [id number] Univers 00:00:00 00:00:00 Outreach Hugh W Mcnally 350.1.13.10 ity of [place].2.[place] [phone] [address] 2019-11-03 2019-11-03 Patient Trupti Ahn 1.2.840.114 75 [id number] Univers 00:00:00 00:00:00 Outreach E Mcnally 350.1.13.10 i ty of [place] 4[place]2.7.2.[place] [phone] [address] 2019-11-02 2019-11-02 Patient Trupti Ahnanders 1.2.840.114 75 [id number] Univers 00:00:00 00:00:00 Outreach E Mcnally 350.1.13.10 i ty of [place] 4.2.7.2.[place] [phone] [address] 2019-10-30 2019-10-30 Patient Trupti Ahnanders 1.2.840.114 75 [id number] Univers 00:00:00 00:00:00 Outreach E Mcnally 350.1.13.10 i ty of [place] 4.2.7.2.686 [place] [phone] [facility] [address] 2019-10-29 2019-10-29 Hospital Kaycee Devlin 1.2.690.324 [id number] [id number] Univers 11:46:00 23:59:00 Encounter Segun Rogersy 350.1.13.10 ity of [facility] 4.2.7.2.686 You as [phone] [facility] [address] 2019-10-29 2019-10-29 Outpatient R [facility] [id number] -20 Univers 12:30:00 12:30:00 [id number] ity of [facility] 2019-10-29 2019-10-29 [facility] [id number] Univers 12:30:00 12:30:00 SEGUN ity [facility] 2019-10-29 2019-10-29 Transition Jatin Navarrete 1.2.840.114 [id number] Univers 00:00:00 00:00:00 of Care Lucia Mcnally 350.1.13.10 ity of [place] 4.2.7.2.686 [place] [phone] [facility] [address] 2019-10-26 2019-10-28 [facility] 1.2.840. 114 [id number] Univers 20:13:39 12:05:00 Encounter Faustino Mason 350.1.13.10 ity of [place].2.7.2.686 [place] [phone] [facility] [address] 2019-10-28 2019-10-28 Telephone [facility] 1.2.160.041 [id number] Univers 00:00:00 00:00:00 Mara Isaac 350.1.13.10 ity of [place].2.7.2.686 [place] [facility] [phone] [facility] 059 [facility] 2019-10-27 2019-10-27 Telephone [facility] 1.2.807.199 [id number] Univers 00:00:00 00:00:00 Grzegorz Allen 350.1.13.10 i ty of [place] 4.2.7.2.686 You as Professio [phone] Ut dical nal 044 [facility] One 2019-10-19 2019-10-26 Telemedici [facility] ..840.114 [id number] [id number] Univers 10:08:07 17:02:04 ne Visit Mara [place] 350.1.13.10 ity of [place] 4.2.7.2.686 [place] Professio [phone] Ut dical nal 059 [facility] 2019-10-26 2019-10-26 Data Warehouse Manager Shaka, Adc Lab Main [facility] 1.2.8 40.114 [id number] Univers 14:57:39 15:12:39 Visit Chelly Crossluly [place] 350.1.13.10 ity of [place] 4.2.7.2.686 [place] Professio [phone] Ut dical nal 353 [facility] 2019-10-26 2019-10-26 Outpatient O [facility], [facility] [id number] -20 Univers 15:00:00 15:00:00 MARA [id number] ity o [facility] 2019-10-26 2019-10-26 Outpatient R [facility] [id number] Univers 11:15:00 11:15:00 MARA ruizy o [facility] 2019-10-26 2019-10-26 Orders Doctor ALPHONSE 1..840.114 [id number] Univers 00:00:00 00:00:00 Only Unassigned, LINK 350.1.13.10 ity of [place] [facility] 4.2.7.2.686 You as [phone] [address] 2019-10-19 2019-10-19 Outpatient O [facility] [id number] -20 Univers 14:40:00 14:40:00 MARA [id number] ity o [facility] 2019-10-19 2019-10-19 Outpatient O [facility], [facility] [id number] Univers 14:40:00 14:40:00 MARA ruizy o [facility] 2019-10-19 2019-10-19 Telephone [facility] ..974.013 [id number] Univers 00:00:00 00:00:00 Chellymaximclark Isaac 350.1.13.10 ity of [place] 4.2.7.2.686 [place] [facility] [phone] Ut dical nal 059 [facility] 2019-10-12 2019-10-12 [facility] Renny Ashley 1.2.840.114 [id number] Univers 12:30:00 23:59:00 Encounter Segun Devlin 350.1 .13.10 ity of [facility] 4.2.7.2.686 You as [phone] [facility] [address] 2019-10-12 2019-10-12 Outpatient [facility] [id number] -20 Univers 12:30:00 12:30:00 [id number] ity of [facility] 2019-10-12 2019-10-12 Outpatient [facility] [id number] Univers 12:30:00 12:30:00 RENNY [facility] 2019-09-29 2019-10-01 Emergency Chong Brennan [facility] 1.2.840.1 14 [id number] Univers 16:30:29 18:09:00 Pritesh Sunshine [facility] 350.1.13.10 ity [facility] 4.2.7.2.[address] [place] [phone] [facility] [address] ([facility]) 2019-09-29 2019-10-01 Outpatient X BABA [facility] [id number] Univers 16:30:29 18:09:00 PRITESH urrutia o f [facility] 2019-09-29 2019-09-29 [facility] 1.2.840.114 [id number] Univers 09:00:00 16:29:00 Encounter Marlin 350.1.13.10 ity of [place].7.2.[place] [phone] [facility] [address] 2019-09-29 2019-09-29 Outpatient R IGOR BORREGO [facility] [id number] Univers 09:00:00 16:29:00 ity [facility] 2019-09-29 2019-09-29 Annette BORREGO, [facility] [id number] Univers 15:00:00 15:00:00 t; IGOR BORREGO M.D. Advanced ity of Arabella COSTA M.D. Failure - Physic i [place] [facility] 2019-09-29 2019-09-29 Data Warehouse Manager 1, Adc Lab [facility] 1.2.840.114 [id number] Univers 09:30:09 09:45:09 Visit Igor Borrego [place] 350.1.13.10 ity [facility] 4.2.7.2.686 [facility] [phone] [facility] [address] 2019-09-29 2019-09-29 Outpatient R IGOR BORREGO [facility] [id number] [id number] Univers 09:00:00 09:00:00 [id number] ity [facility] 2019-09-28 2019-09-28 [facility] Segun Devlin 1. 2.840.114 [id number] Univers 12:30:00 23:59:00 Encounter Renny Ashley 350.1.13.10 ity [facility] 4.2.7.2.686 You as [phone] [facility] [address] 2019-09-28 2019-09-28 Ancillary Room, Maureen-Occup Therapy Tub Luda ie 1.2.840.114 [id number] Univers 16:08:34 16:38:34 Visit Renny Ashley 350.1.13.10 ity [facility] 4.2.7.2.686 You as [phone] [facility] [address] 2019-09-28 2019-09-28 Outpatient R [facility] [id number] -[id number] Univers 12:30:00 12:30:00 [id number] ity [facility] 2019-09-28 2019-09-28 [facility] [id number] Univers 12:30:00 12:30:[facility] 2019-09-22 2019-09-22 Ancillary Room, Maureen-Occup Therapy Tub Luda ie 1.2.840.114 [id number] Univers 16:28:15 17:13:15 Visit Segun Devlin 350.1.1 3.10 ity [facility] 4.2.7.2.686 You as [phone] [facility] [address] 2019-09-21 2019-09-21 Hospital Kaycee Devlin 1.2.732.994 [id number] Univers 12:30:00 23:59:00 Encounter Segun Maza 350.1.13.10 ity of [facility] 4.2.7.2.686 You as [phone] [facility] [address] 2019-09-21 2019-09-21 Outpatient R [facility] [id number] -20 Univers 12:30:00 12:30:00 [id number] ity [facility] 2019-09-21 2019-09-21 [facility] [id number] Univers 12:30:00 12:30:00 [facility] 2019-09-21 2019-09-21 [facility] [id number] Univers 08:45:00 08:45:00 [facility] 2019-09-18 2019-09-18 Emergency X DOYLE, [facility] ERT [id number] Univers 17:58:06 20:49:00 KATJOYA [facility] 2019-09-18 2019-09-18 Emergency [facility] 1.2.835.013 [id number] Univers 17:58:06 20:49:00 Servando Isaac 350.1.13.10 i ty of [place].7.2.[place] [phone] [facility] [address] 2019-09-12 2019-09-15 Inpatient X ABU [facility] [id number] Univers 09:17:22 13:30:00 renan TROTTER f WAYNE [facility] 2019-09-12 2019-09-15 Hospital Sang Leal [facility] 1.2.840.1 14 [id number] Univers 09:17:22 13:30:00 Encounter Abu KrishanWayne cha [facility] 350.1.13. 10 ity of [place] 4.2.7.2.[place] [id number] [facility] [address] (CLC) 2019-09-10 2019-09-10 Patient Trupti Ahn 1.2.840.114 [id number] Univers 00:00:00 00:00:00 Outreach E Mcnally 350.1.13.10 i ty of [place] 4.2.7.2.686 [place] [id number] [facility] [address] 2019-09-08 2019-09-08 Transition Jatin Navarrete 1.2.840.114 [id number] Univers 00:00:00 00:00:00 of Care Lucia Whitey 350.1.13.10 ity of [place] 4.2.7.2.686 [place] [phone] [place] [address] Branch 2019-08-18 2019-09-07 Inpatient X [facility] [id number] Univers 14:20:52 14:10:00 [facility] 2019-08-18 2019-09-07 [facility] 1.2.840.1 14 [id number] Univers 14:20:52 14:10:00 Encounter [facility] 350.1.13.10 ity [facility] Clear 4.2.7.2.686 [facility] [phone] [address] (CLC) Results Test Description Test Time Test Comments Results Result Comments Source POCT GLUCOSE (AUTOMATED) 2020-11-09 16:51:02 Test Item Value Reference Range Interpretation Comme nts POCT GLU (test code = 6706132398) 177 mg/dL 70-110 H Lab Interpretation (test code = 92167-8) Abnormal [facility]2020-11-09 16:51:02 Test Item Value Reference Range Interpretation Comments POCT GLU (test code = 7731620040) 177 mg/dL 70-110 H Lab Interpretation (test code = Abnormal 92713-5) [facility] WITHOUT [id number] 12:33:06 Test Item Value Reference Range Interpretation Comments WBC (test code = 6690-2) See_Comment [A utomated message] The system [employer] generated this result transmit teninlle reference range : 4.20 - 10.70 10*3/?L. The reference range was not used to interpret this result as normal/abnormal . RBC (test code = 789-8) See_Comment L [Au tomated message] The system [employer] generated this result transmit tennille reference range [...] 777-3) See_Comment [Au tomated message] The system [employer] generated this result transmit [place]ennille reference range : 150 - 328 10*3/?L. The reference range was not used to interpret this result as normal/abnormal . MPV (test code = 12.5 fL 9.8-13.0 01366-1) RDW-CV (test code = 22.8 % 12.1-15.4 H 788-0) RDW-SD (test code = 64.1 fL 38.5-51.6 H 62551-6) NRBC x10^3 (test code = <0.01 See_Comment [Au tomated message] 9535208447) The system [employer] generated this result transmit [place]ennille reference range : 10*3/?L. The reference range was not used to interpret this result as normal/abnormal . NRBC/100 WBC (test code See_Comment [Au tomated message] = 2063722664) The system [facility] generated this result transmit [place]ennille reference range : 0.0 - 10.0 /100 WBC s. The reference r christine was not used to interpret this result as normal/abnormal . IPF % (test code = 0847461149) Lab Interpretation (test Abnormal code = 52354-7) [facility] WITHOUT [id number] 12:33:06 Test Item Value Reference Range Interpretation Comments WBC (test code = 6690-2) See_Comment [A utomated message] The system [employer] generated this result transmit [place]ennille reference range : 4.20 - 10.70 10*3/?L. The reference range was not used to interpret this result as normal/abnormal . RBC (test code = 789-8) See_Comment L [Au tomated message] The system [facility] generated this result transmit [place]enn[place] reference range [...] 777-3) See_Comment [Au tomated message] The system [facility] generated this result transmit [place]ennille reference range : 150 - 328 10*3/?L. The reference range was not used to interpret this result as normal/abnormal . MPV (test code = 12.5 fL 9.8-13.0 58430-1) RDW-CV (test code = 22.8 % 12.1-15.4 H 788-0) RDW-SD (test code = 64.1 fL 38.5-51.6 H 30024-6) NRBC x10^3 (test code = <0.01 See_Comment [Au tomated message] 6011112389) The system [employer] generated this result transmit [place] reference range : 10*3/?L. The reference range was not used to interpret this result as normal/abnormal . NRBC/100 WBC (test code See_Comment [Au tomated message] = 9550222485) The system [facility] generated this result transmit [place]ennille reference range : 0.0 - 10.0 /100 WBC s. The reference r christine was not used to interpret this result as normal/abnormal . IPF % (test code = 9041582607) Lab Interpretation (test Abnormal code = 90790-5) [facility]2021-04-28 12:23:25 Test Item Value Reference Range Interpretation Comments MAGNESIUM (test code = 6461730145) 2.7 mg/dL 1.7-2.4 H Lab Interpretation (test code = Abnormal 32366-8) [facility] (NA, K, CL, CO2, GLUCOSE, BUN, CREATININE, CA)2020-11-09 12:23:25 Test Item Value Reference Range Interpretation Comments NA (test code = 146 mmol/L 135-145 H 3958030954) K (test code = 4.0 mmol/L 3.5-5.0 3190669047) CL (test code = 110 mmol/L 98-108 H 2489248812) CO2 TOTAL (test code = 31 mmol/L 23-31 9328519879) AGAP (test code = 2-16 3586433445) BUN (test code = 49 mg/dL 7-23 H 3388885701) GLUCOSE (test code = 114 mg/dL 70-110 H 6017258186) CREATININE (test code = 1.23 mg/dL 0.60-1.25 8816813332) CALCIUM (test code = 7.8 mg/dL 8.6-10.6 L 5481452879) eGFR (test code = mL/min/1.73m2 9254951759) JUAN LUIS (test code = JUAN LUIS) [...] tests). Lab Interpretation Abnormal (test code = 32708-8) [facility] METABOLIC PANEL (NA, K, CL, CO2, GLUCOSE, BUN, CREATININE, CA)2020-11-09 12:23:25 Test Item Value Reference Range Interpretation Comments NA (test code = 146 mmol/L 135-145 H 4042775309) K (test code = 4.0 mmol/L 3.5-5.0 3508976522) CL (test code = 110 mmol/L 98-108 H 0045678832) CO2 TOTAL (test code = 31 mmol/L 23-31 6383524082) AGAP (test code = 2-16 1061489889) BUN (test code = 49 mg/dL 7-23 H 2722140438) GLUCOSE (test code = 114 mg/dL 70-110 H 2586690663) CREATININE (test code = 1.23 mg/dL 0.60-1.25 9366245452) CALCIUM (test code = 7.8 mg/dL 8.6-10.6 L 7506575619) eGFR (test code = mL/min/1.73m2 9001806506) JUAN LUIS (test code = JUAN LUIS) [...] tests). Lab Interpretation Abnormal (test code = 20409-4) [facility] 12[facility]23:25 Test Item Value Reference Range Interpretation Comments MAGNESIUM (test code = 6940684834) 2.7 mg/dL 1.7-2.4 H Lab Interpretation (test code = Abnormal 99662-1) [facility] GLUCOSE (AUTOMATED)2020-11-09 10:56:45 Test Item Value Reference Range Interpretation Comments POCT GLU (test code = 9436598355) 129 mg/dL 70-110 H Lab Interpretation (test code = Abnormal 53520-6) [facility] GLUCOSE (AUTOMATED)2020-11-09 05:24:07 Test Item Value Reference Range Interpretation Comments POCT GLU (test code = 4111377103) 203 mg/dL 70-110 H Lab Interpretation (test code = Abnormal 45236-5) [facility] GLUCOSE (AUTOMATED)2020-11-08 23:23:05 Test Item Value Reference Range Interpretation Comments POCT GLU (test code = 1515297160) 238 mg/dL 70-110 H Lab Interpretation (test code = Abnormal 61840-7) [facility] GLUCOSE (AUTOMATED)2020-11-08 15:48:22 Test Item Value Reference Range Interpretation Comments POCT GLU (test code = 4057789786) 193 mg/dL 70-110 H Lab Interpretation (test code = Abnormal 77266-6) [facility] THORAX W [id number] 14:45:56 1. 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 [facility], Radiant Results Inft User - 11/08/2020 9:47 AM CDTEXAM: CT CHEST, ABDOMEN ANDPELVIS WITHOUT CONTRAST, CONSULTATION OUTSIDEHISTORY: 65 years -old Male with uti - shock COMPARISON: None, correlation with CT abdomen pelvis with and withoutcontrast from 09/20/2017TECHNIQUE: CT examination acquisition dated 10/22/2020 from [facility], labeled with the patients name, was submitted [...] reviewed this study and agree with the abovereport.[facility] THORAX W [id number] 14:45:56 1. ?Multifocal mixed attenuation opacities and [...] TECHNIQUE: CT examination acquisition dated 10/22/2020 from [facility], labeled with the patients name, was submitted [...] 09/20/2017TECHNIQUE: CT examination acquisition dated 10/22/2020 from [facility], labeled with the patients name, was submitted [...] reviewed this study and agree with the abovereport.[facility] GLUCOSE (AUTOMATED)2020-11-08 11:15:50 Test Item Value Reference Range Interpretation Comments POCT GLU (test code = 6384702579) 126 mg/dL 70-110 H Lab Interpretation (test code = Abnormal 06783-4) [facility] METABOLIC PANEL (NA, K, CL, CO2, GLUCOSE, BUN, CREATININE, CA)2020-11-08 10:22:09 Test Item Value Reference Range Interpretation Comments NA (test code = 147 mmol/L 135-145 H [id number]) K (test code = 4.1 mmol/L 3.5-5.0 [id number]) CL (test code = 113 mmol/L 98-108 H [id number]) CO2 TOTAL (test code = 30 mmol/L 23-31 [id number]) AGAP (test code = 2-16 2503944086) BUN (test code = 43 mg/dL 7-23 H 6939257017) GLUCOSE (test code = 113 mg/dL 70-110 H 8900828074) CREATININE (test code = 1.17 mg/dL 0.60-1.25 1881345659) CALCIUM (test code = 7.6 mg/dL 8.6-10.6 L 0561291477) eGFR (test code = mL/min/1.73m2 3229991651) JUAN LUIS (test code = JUAN LUIS) [...] tests). Lab Interpretation Abnormal (test code = 95759-1) [facility] WITH [id number] 10:16:46 Test Item Value Reference Range Interpretation [...] (test code = 65.6 fL 38.5-51.6 H 34581-8) RDW-CV (test code = 23.0 % 12.1-15.4 H 788-0) PLT (test code = See_Comment [Automated 777-3) message] The sy stem which generated this result transmitted reference range : 150 - 328 10*3/ ?L. The reference r christine was not used to interpret this result as normal/abnormal . MPV (test code = 13.3 fL 9.8-13.0 H 15058-8) NRBC/100 WBC (test See_Comment [Automat ed code = 0062223552) message] The system which generated this result transmitted reference range : 0.0 - 10.0 /100 WBCs. The refer ence range was not u sed to interpret th is result as normal/abnormal . NRBC x10^3 (test code <0.01 See_Comment [Auto mated = 4996352619) message] The s ystem which generated this result transmitted reference range : 10*3/?L. The reference range was not used to interpret this result as normal/abnormal . GRAN MAT (NEUT) % 71.8 % (test code = 770-8) IMM GRAN % (test code 0.30 % = 9388052581) LYMPH % (test code = 17.7 % 736-9) MONO % (test code = 7.2 % 5905-5) EOS % (test code = 2.5 % 713-8) BASO % (test code = 0.5 % 706-2) GRAN MAT x10^3(ANC) 4.57 10*3/uL 1.99-6.95 (test code = 6147292670) IMM GRAN x10^3 (test <0.03 0.00-0.06 code = 7612764071) LYMPH x10^3 (test code 1.13 10*3/uL 1.09-3.23 = 731-0) MONO x10^3 (test code 0.46 10*3/uL 0.36-1.02 = 742-7) EOS x10^3 (test code = 0.16 10*3/uL 0.06-0.53 711-2) BASO x10^3 (test code 0.03 10*3/uL 0.01-0.09 = 704-7) Lab Interpretation Abnormal (test code = 58252-8) [facility] WITH [id number] 10:16:46 Test Item Value Reference Range Interpretation Comments WBC (test code = See_Comment [Automated 5490-2) message] The sy stem which generated this result transmitted reference range : 4.20 - 10.70 10*3/?L. The reference range was not used to interpret this result as normal/abnormal . RBC (test code = See_Comment L [Automated 969-8) message] The sy stem which generated this [...] (test code = 65.6 fL 38.5-51.6 H 05911-2) RDW-CV (test code = 23.0 % 12.1-15.4 H 788-0) PLT (test code = See_Comment [Automated 777-3) message] The sy stem which generated this result transmitted reference range : 150 - 328 10*3/ ?L. The reference r christine was not used to interpret this result as normal/abnormal . MPV (test code = 13.3 fL 9.8-13.0 H 82562-6) NRBC/100 WBC (test See_Comment [Automat ed code = 4177935132) message] The system which generated this result transmitted reference range : 0.0 - 10.0 /100 WBCs. The refer ence range was not u sed to interpret th is result as normal/abnormal . NRBC x10^3 (test code <0.01 See_Comment [Auto mated = 6913343992) message] The s ystem which generated this result transmitted reference range : 10*3/?L. The reference range was not used to interpret this result as normal/abnormal . GRAN MAT (NEUT) % 71.8 % (test code = 770-8) IMM GRAN % (test code 0.30 % = 3837720229) LYMPH % (test code = 17.7 % 736-9) MONO % (test code = 7.2 % 5905-5) EOS % (test code = 2.5 % 713-8) BASO % (test code = 0.5 % 706-2) GRAN MAT x10^3(ANC) 4.57 10*3/uL 1.99-6.95 (test code = 7022572883) IMM GRAN x10^3 (test <0.03 0.00-0.06 code = 0326585752) LYMPH x10^3 (test code 1.13 10*3/uL 1.09-3.23 = 731-0) MONO x10^3 (test code 0.46 10*3/uL 0.36-1.02 = 742-7) EOS x10^3 (test code = 0.16 10*3/uL 0.06-0.53 711-2) BASO x10^3 (test code 0.03 10*3/uL 0.01-0.09 = 704-7) Lab Interpretation Abnormal (test code = 00814-8) [facility] GLUCOSE (AUTOMATED)2020-11-08 05:43:41 Test Item Value Reference Range Interpretation Comments POCT GLU (test code = 9400499237) 123 mg/dL 70-110 H Lab Interpretation (test code = Abnormal 72815-1) [facility] GLUCOSE (AUTOMATED)2020-11-07 22:02:56 Test Item Value Reference Range Interpretation Comments POCT GLU (test code = 2418030759) 120 mg/dL 70-110 H Lab Interpretation (test code = Abnormal 14148-1) [facility] [id number] 15:30:56 Nonobstructive bowel gas pattern. Mild stool burden throughout the colon. Preliminary Report Dictated by Resident: Emelia Mcdonald I reviewed this study and agree. I, Jigar Morrell MD., have reviewed this study [...] this study and agree with theabove report. [facility] [id number] 14:18:52EXAM: XR CHEST 1 VW HISTORY: fever [...] skin folds on the right obscure the lungbases.[facility] [id number] 14:18:52 EXAM: XR CHEST 1 VW HISTORY: [...] skin folds on the right obscure the lungbases.[facility] 2020-11-07 13:14:41 Test Item Value Reference Range Interpretation Comments POCT GLU (test code = 9380265626) 88 mg/dL 70-110 Lab Interpretation (test code = Normal 44957-8) [facility] METABOLIC PANEL (NA, K, CL, CO2, GLUCOSE, BUN, CREATININE, CA)2020-11-07 10:43:49 Test Item Value Reference Range Interpretation Comments NA (test code = 148 mmol/L 135-145 H 3839354794) K (test code = 4.1 mmol/L 3.5-5.0 0541010710) CL (test code = 113 mmol/L 98-108 H 2096422385) CO2 TOTAL (test code = 35 mmol/L 23-31 H 4895920057) AGAP (test code = <1 2-16 L 4787585579) BUN (test code = 45 mg/dL 7-23 H 1366805454) GLUCOSE (test code = 63 mg/dL 70-110 L 7140204498) CREATININE (test code = 1.33 mg/dL 0.60-1.25 H 8179977186) CALCIUM (test code = 8.0 mg/dL 8.6-10.6 L 3405293497) eGFR (test code = mL/min/1.73m2 6704420466) JUAN LUIS (test code = JUAN LUIS) [...] tests). Lab Interpretation Abnormal (test code = 43600-7) [facility] 10:42:07 Test Item Value Reference Range Interpretation Comments MAGNESIUM (test code = 5669805065) 2.7 mg/dL 1.7-2.4 H Lab Interpretation (test code = Abnormal 35356-2) [facility]2020-11-07 10:27:42 Test Item Value Reference Range Interpretation Comments POCT GLU (test code = 3583039407) 80 mg/dL 70-110 Lab Interpretation (test code = Normal 00309-7) [facility] [id number] 10:22:42 Test Item Value Reference Range Interpretation Comments WBC (test code = 6690-2) See_Comment [A utomated message] The system [employer] generated this result transmit tennille reference range : 4.20 - 10.70 10*3/?L. The reference range was not used to interpret this result as normal/abnormal . RBC (test code = 789-8) See_Comment L [Au tomated message] The system [employer] generated this result transmit tennille reference range [...] 777-3) See_Comment [Au tomated message] The system [employer] generated this result transmit tennille reference range : 150 - 328 10*3/?L. The reference range was not used to interpret this result as normal/abnormal . MPV (test code = 12.7 fL 9.8-13.0 00007-6) RDW-CV (test code = 23.8 % 12.1-15.4 H 788-0) RDW-SD (test code = 65.6 fL 38.5-51.6 H 20765-2) NRBC x10^3 (test code = <0.01 See_Comment [Au tomated message] 6631675018) The system [employer] generated this result transmit tennille reference range : 10*3/?L. The reference range was not used to interpret this result as normal/abnormal . NRBC/100 WBC (test code See_Comment [Au tomated message] = 1758295839) The system [employer] generated this result transmit tennille reference range : 0.0 - 10.0 /100 WBC s. The reference r christine was not used to interpret this result as normal/abnormal . IPF % (test code = 3616961760) Lab Interpretation (test Abnormal code = 83839-0) [facility] GLUCOSE (AUTOMATED)2020-11-07 05:14:24 Test Item Value Reference Range Interpretation Comments POCT GLU (test code = 6351239596) 87 mg/dL 70-110 Lab Interpretation (test code = Normal 38979-6) [facility] GLUCOSE (AUTOMATED)2020-11-06 22:50:06 Test Item Value Reference Range Interpretation Comments POCT GLU (test code = 3914467314) 80 mg/dL 70-110 Lab Interpretation (test code = Normal 12694-7) [facility] GLUCOSE (AUTOMATED)2020-11-06 16:50:42 Test Item Value Reference Range Interpretation Comments POCT GLU (test code = 5612163320) 146 mg/dL 70-110 H Lab Interpretation (test code = Abnormal 51720-4) [facility]2020-11-06 16:50:42 Test Item Value Reference Range Interpretation Comments POCT GLU (test code = 7169454153) 146 mg/dL 70-110 H Lab Interpretation (test code = Abnormal 56743-1) [facility] [id number] 12:14:44 Test Item Value Reference Range Interpretation Comments URINE CULTURE (test No aerobic growth (< code = 630-4) 1000 CFU/mL) [facility] [id number] 12:14:44 Test Item Value Reference Range Interpretation Comments URINE CULTURE (test No aerobic growth (< code = 630-4) 1000 CFU/mL) [facility] [id number] 12:14:44 Test Item Value Reference Range Interpretation Comments URINE CULTURE (test No aerobic growth (< code = 630-4) 1000 CFU/mL) [facility]2021-[facility]-25 11:42:12 Test Item Value Reference Range Interpretation Comments MAGNESIUM (test code = 3549418732) 2.6 mg/dL 1.7-2.4 H Lab Interpretation (test code = Abnormal 43290-8) [facility] METABOLIC PANEL (NA, K, CL, CO2, GLUCOSE, BUN, CREATININE, CA)2020-11-06 11:42:12 Test Item Value Reference Range Interpretation Comments NA (test code = 146 mmol/L 135-145 H 0638226805) K (test code = 4.0 mmol/L 3.5-5.0 6401829655) CL (test code = 112 mmol/L 98-108 H 0653652554) CO2 TOTAL (test code = 32 mmol/L 23-31 H 8339165771) AGAP (test code = 2-16 9817681223) BUN (test code = 47 mg/dL 7-23 H 5218309765) GLUCOSE (test code = 176 mg/dL 70-110 H 9943491817) CREATININE (test code = 1.33 mg/dL 0.60-1.25 H 1608591110) CALCIUM (test code = 7.9 mg/dL 8.6-10.6 L 0878238691) eGFR (test code = mL/min/1.73m2 3867226679) JUAN LUIS (test code = JUAN LUIS) [...] tests). Lab Interpretation Abnormal (test code = 28322-1) [facility] METABOLIC PANEL (NA, K, CL, CO2, GLUCOSE, BUN, CREATININE, CA)2020-11-06 11:42:12 Test Item Value Reference Range Interpretation Comments NA (test code = 146 mmol/L 135-145 H 0867265295) K (test code = 4.0 mmol/L 3.5-5.0 4280241874) CL (test code = 112 mmol/L 98-108 H 4099294651) CO2 TOTAL (test code = 32 mmol/L 23-31 H 5245510355) AGAP (test code = 2-16 4111798042) BUN (test code = 47 mg/dL 7-23 H 8360507161) GLUCOSE (test code = 176 mg/dL 70-110 H 4564825853) CREATININE (test code = 1.33 mg/dL 0.60-1.25 H 7605370480) CALCIUM (test code = 7.9 mg/dL 8.6-10.6 L 4176102653) eGFR (test code = mL/min/1.73m2 6743703429) JUAN LUIS (test code = JUAN LUIS) [...] tests). Lab Interpretation Abnormal (test code = 12901-3) [facility] 11:42:12 Test Item Value Reference Range Interpretation Comments MAGNESIUM (test code = 0527627050) 2.6 mg/dL 1.7-2.4 H Lab Interpretation (test code = Abnormal 73290-3) [facility] [id number] 11:35:08 Test Item Value Reference Range Interpretation Comments WBC (test code = 6690-2) See_Comment [A utomated message] The system [facility] generated this result transmit tennille reference range : 4.20 - 10.70 10*3/?L. The reference range was not used to interpret this result as normal/abnormal . RBC (test code = 789-8) See_Comment L [Au tomated message] The system [facility] generated this result transmit tennille reference range [...] 777-3) See_Comment [Au tomated message] The system [facility] generated this result transmit tennille reference range : 150 - 328 10*3/?L. The reference range was not used to interpret this result as normal/abnormal . MPV (test code = 13.6 fL 9.8-13.0 H 13085-7) RDW-CV (test code = 23.8 % 12.1-15.4 H 788-0) RDW-SD (test code = 66.0 fL 38.5-51.6 H 35476-2) NRBC x10^3 (test code = <0.01 See_Comment [Au tomated message] 6402381171) The system [facility] generated this result transmit tennille reference range : 10*3/?L. The reference range was not used to interpret this result as normal/abnormal . NRBC/100 WBC (test code See_Comment [Au tomated message] = 4132631315) The system [facility] generated this result transmit tennille reference range : 0.0 - 10.0 /100 WBC s. The reference r christine was not used to interpret this result as normal/abnormal . IPF % (test code = 8194834350) Lab Interpretation (test Abnormal code = 23730-8) [facility] WITHOUT [id number] 11:35:08 Test Item Value Reference Range Interpretation Comments WBC (test code = 6690-2) See_Comment [A utomated message] The system [employer] generated this result transmit tennille reference range : 4.20 - 10.70 10*3/?L. The reference range was not used to interpret this result as normal/abnormal . RBC (test code = 789-8) See_Comment L [Au tomated message] The system [employer] generated this result transmit tennille reference range [...] 777-3) See_Comment [Au tomated message] The system [employer] generated this result transmit tennille reference range : 150 - 328 10*3/?L. The reference range was not used to interpret this result as normal/abnormal . MPV (test code = 13.6 fL 9.8-13.0 H 20051-5) RDW-CV (test code = 23.8 % 12.1-15.4 H 788-0) RDW-SD (test code = 66.0 fL 38.5-51.6 H 17652-0) NRBC x10^3 (test code = <0.01 See_Comment [Au tomated message] 9307337097) The system [employer] generated this result transmit tennille reference range : 10*3/?L. The reference range was not used to interpret this result as normal/abnormal . NRBC/100 WBC (test code See_Comment [Au tomated message] = 6203443242) The system [facility] this result transmit tennille reference range : 0.0 - 10.0 /100 WBC s. The reference r christine was not used to interpret this result as normal/abnormal . IPF % (test code = 2859332340) Lab Interpretation (test Abnormal code = 09676-3) [facility]2020-11-06 11:12:42 Test Item Value Reference Range Interpretation Comments POCT GLU (test code = 7378873296) 206 mg/dL 70-110 H Lab Interpretation (test code = Abnormal 49568-0) [facility], [id number] 07:41:26 Test Item Value Reference Range Interpretation Comments VIT B6 (test code = 10 nmol/L 20.0-125.0 L INTERPRE TIVE 79697-2) INFORMATION: Vi tamin B6 (Pyridoxal 5-Phosphate) Py ridoxal 5'-phosphate me asured in a specimen collected follo wing an 8-hour or overn ight fast accurately indicates vitam in B6 nutritional sta tus. Non-fasting spe cimen concentration r eflects recent vitamin intake. This test was developed and i ts performance characteristics determined by [facility]. I t has not been cleare d or approved by the [place] Food and Drug Administration. This test was perfor med in a CLIA certifie d laboratory and is intended for cl inical purposes.Perfor med By: NESHA Flori es[address] [place] [id number] Director: Dori Carpio MD Lab Interpretation Abnormal (test code = 94812-5) [facility], [id number] 07:41:26 Test Item Value Reference Range Interpretation Comments VIT B6 (test code = 10 nmol/L 20.0-125.0 L INTERPRE TIVE 42135-9) INFORMATION: Vi tamin B6 (Pyridoxal 5-Phosphate) Py ridoxal 5'-phosphate me asured in a specimen collected follo wing an 8-hour or overn ight fast accurately indicates vitam in B6 nutritional sta tus. Non-fasting spe cimen concentration r eflects recent vitamin intake. This test was developed and i ts performance characteristics determined by [facility]. I t has not been cleare d or approved by the [place] Food and Drug Administration. This test was perfor med in a CLIA certifie d laboratory and is intended for cl inical purposes.Perfor med By: [facility] [address] [id number] Director: Dori Carpio MD Lab Interpretation Abnormal (test code = 14114-3) [facility], [id number] 07:41:26 Test Item Value Reference Range Interpretation Comments VIT B6 (test code = 10 nmol/L 20.0-125.0 L INTERPRE TIVE 58729-0) INFORMATION: Vi tamin B6 (Pyridoxal 5-Phosphate) Py ridoxal 5'-phosphate me asured in a specimen collected follo wing an 8-hour or overn ight fast accurately indicates vitam in B6 nutritional sta tus. Non-fasting spe cimen concentration r eflects recent vitamin intake. This test was developed and i ts performance characteristics determined by [facility]. I t has not been cleare d or approved by the [place] Food and Drug Administration. This test was perfor med in a CLIA certifie d laboratory and is intended for cl inical purposes.Perfor med By: [facility] [address] [id number] Director: Dori Carpio MD Lab Interpretation Abnormal (test code = 28935-8) [facility]2020-11-06 05:08:09 Test Item Value Reference Range Interpretation Comments POCT GLU (test code = 7946082228) 175 mg/dL 70-110 H Lab Interpretation (test code = Abnormal 90339-6) [facility]1 (THIAMINE), WHOLE [id number] 00:12:20 Test Item Value Reference Range Interpretation Comments Vitamin B1, Whole 104 nmol/L 70-180 INTERPRETI VE INFORMATION: Blood (test code = Vitamin B 1, Whole Blood 92193-1) This assay gal ures the concentration o f thiamine diphosphate (TD P), the primary active form of vitamin B1. Nataly roximately 90 percent of v itamin B1 present in whol e blood is TDP. Thiamine a nd thiamine monoph osphate, which comprise the remaining 10 pe rcent, are not measured. T his test was developed a nd its performance characteristics determined by [facility]. I t has not been cleared or approved by the [place] Food and Drug Administration. This test was performed i n a CLIA certified labor atory and is intended for clinical purposes.Perfor med By: [address] [id number] aboratory Director: Dori Carpio MD [facility] (THIAMINE), WHOLE [id number] 00:12:20 Test Item Value Reference Range Interpretation Comments Vitamin B1, Whole 104 nmol/L 70-180 INTERPRETI VE INFORMATION: Blood (test code = Vitamin B 1, Whole Blood 26832-7) This assay gal ures the concentration o f thiamine diphosphate (TD P), the primary active form of vitamin B1. Nataly roximately 90 percent of v itamin B1 present in whol e blood is TDP. Thiamine a nd thiamine monoph osphate, which comprise the remaining 10 pe rcent, are not measured. T his test was developed a nd its performance characteristics determined by [facility]. I t has not been cleared or approved by the [place] Food and Drug Administration. This test was performed i n a CLIA certified labor atory and is intended for clinical purposes.Perfor med By: [address] [id number] aboratory Director: Dori Carpio MD [facility] (THIAMINE), WHOLE [id number] 00:12:20 Test Item Value Reference Range Interpretation Comments Vitamin B1, Whole 104 nmol/L 70-180 INTERPRETI VE INFORMATION: Blood (test code = Vitamin B 1, Whole Blood 47773-8) This assay gal ures the concentration o f thiamine diphosphate (TD P), the primary active form of vitamin B1. Nataly roximately 90 percent of v itamin B1 present in whol e blood is TDP. Thiamine a nd thiamine monoph osphate, which comprise the remaining 10 pe rcent, are not measured. T his test was developed a nd its performance characteristics determined by [facility]. I t has not been cleared or approved by the [place] Food and Drug Administration. This test was performed i n a CLIA certified labor atory and is intended for clinical purposes.Perfor med By: [address] [id number] aboratory Director: Dori Carpio MD [facility]2020-11-05 18:42:54 Test Item Value Reference Range Interpretation Comments POCT GLU (test code = 8874115263) 139 mg/dL 70-110 H Lab Interpretation (test code = Abnormal 61524-0) [facility] [id number] 12:13:36 Test Item Value Reference Range Interpretation Comments CSF CULTURE (test No organisms isolated code = 606-4) Gram stain (test code Occasional (Rare) = 664-3) Mononuclear cells [facility] [id number] 12:13:36 Test Item Value Reference Range Interpretation Comments CSF CULTURE (test No organisms isolated code = 606-4) Gram stain (test code Occasional (Rare) = 664-3) Mononuclear cells [facility] [id number] 12:13:36 Test Item Value Reference Range Interpretation Comments CSF CULTURE (test No organisms isolated code = 606-4) Gram stain (test code Occasional (Rare) = 664-3) Mononuclear cells [facility] GLUCOSE (AUTOMATED)2020-11-05 11:19:24 Test Item Value Reference Range Interpretation Comments POCT GLU (test code = 2276786435) 186 mg/dL 70-110 H Lab Interpretation (test code = Abnormal 27875-0) [facility] METABOLIC PANEL (NA, K, CL, CO2, GLUCOSE, BUN, CREATININE, CA)2020-11-05 10:23:43 Test Item Value Reference Range Interpretation Comments NA (test code = 147 mmol/L 135-145 H 2307731641) K (test code = 3.9 mmol/L 3.5-5.0 3796822019) CL (test code = 115 mmol/L 98-108 H 6253601501) CO2 TOTAL (test code = 29 mmol/L 23-31 2965267122) AGAP (test code = 2-16 8080125181) BUN (test code = 47 mg/dL 7-23 H 7803155648) GLUCOSE (test code = 157 mg/dL 70-110 H 9594740430) CREATININE (test code = 1.35 mg/dL 0.60-1.25 H 4750988969) CALCIUM (test code = 8.0 mg/dL 8.6-10.6 L 4326928399) eGFR (test code = mL/min/1.73m2 4330140149) JUAN LUIS (test code = JUAN LUIS) [...] tests). Lab Interpretation Abnormal (test code = 23521-1) [facility] 10:23:43 Test Item Value Reference Range Interpretation Comments MAGNESIUM (test code = 7833213461) 2.7 mg/dL 1.7-2.4 H Lab Interpretation (test code = Abnormal 53707-6) [facility] [id number] 09:54:56 Test Item Value Reference Range Interpretation Comments WBC (test code = 6690-2) See_Comment H [A utomated message] The system [employer] generated this result transmit tennille reference range : 4.20 - 10.70 10*3/?L. The reference range was not used to interpret this result as normal/abnormal . RBC (test code = 789-8) See_Comment L [Au tomated message] The system [facility] generated this result transmit tennille reference range [...] 777-3) See_Comment [Au tomated message] The system [facility] generated this result transmit tennille reference range : 150 - 328 10*3/?L. The reference range was not used to interpret this result as normal/abnormal . MPV (test code = 12.5 fL 9.8-13.0 62235-9) RDW-CV (test code = 23.9 % 12.1-15.4 H 788-0) RDW-SD (test code = 66.3 fL 38.5-51.6 H 32584-2) NRBC x10^3 (test code = <0.01 See_Comment [Au tomated message] 0496544015) The system [employer] generated this result transmit tennille reference range : 10*3/?L. The reference range was not used to interpret this result as normal/abnormal . NRBC/100 WBC (test code See_Comment [Au tomated message] = 1654178542) The system [facility] generated this result transmit tennille reference range : 0.0 - 10.0 /100 WBC s. The reference r christine was not used to interpret this result as normal/abnormal . IPF % (test code = 3243812322) Lab Interpretation (test Abnormal code = 52154-1) [facility]2020-11-05 04:55:22 Test Item Value Reference Range Interpretation Comments POCT GLU (test code = 7816291529) 112 mg/dL 70-110 H Lab Interpretation (test code = Abnormal 06471-8) [facility] [facility] PEROXID[facility] (TPO) [id number] 23:58:26 Test Item Value Reference Interpretation Comments Range TPO Ab IgG (test See_Comment [Automated code = 2360780575) message] The system which generated this result [...] Graves'disease. Lab Interpretation Normal (test code = 43804-2) [facility] (TPO) [id number] 23:58:26 Test Item Value Reference Interpretation Comments Range TPO Ab IgG (test See_Comment [Automated code = 2540529454) message] The system which generated this result [...] Graves'disease. Lab Interpretation Normal (test code = 18636-3) [facility]PO[facility] [id number] 23:58:26 Test Item Value Reference Interpretation Comments Range TPO Ab IgG (test See_Comment [Automated code = 4889208072) message] The system which generated this result [...] Graves'disease. Lab Interpretation Normal (test code = 47057-5) [facility]AUTOMATED)2020-11-04 22:59:44 Test Item Value Reference Range Interpretation Comments POCT GLU (test code = 1636034435) 89 mg/dL 70-110 Lab Interpretation (test code = Normal 51240-3) [facility] [id number] 22:07:20 The contrast material is identified in [...] have reviewed thisstudy and agree withthe above report.[facility] [id number] 22:07:20 The contrast material is identified in [...] have reviewed thisstudy and agree withthe above report.[facility] [id number] 22:07:20 The contrast material is identified in [...] spine spondylotic changes. Soft tissues are unremarkable. Msmb, Radiant Results Inft User - 11/04/2020 5:08 [...] have reviewed thisstudy and agree withthe above report.[facility]AUT[facility])2020-11-04 16:52:36 Test Item Value Reference Range Interpretation Comments POCT GLU (test code = 0402450523) 134 mg/dL 70-110 H Lab Interpretation (test code = Abnormal 42500-7) [facility] HospitalPROTHROMBIN TIME / [id number] 16:29:11 Test Item Value Reference Range Interpretation Comments PROTIME PATIENT (test See_Comment H [Auto mated message] code = 5964-2) The system [employer] generated this result transmitted ref erence range: 10.1 - 1 2.6 Seconds. The reference range was not used to int erpret this result as normal/abnormal . INR (test code = 6301-6) Nor mal INR <1.1; Warfarin Therap eutic range 2.0 to 3. 0 or 2.5 to 3.5, dep ending upon the indica tions. Lab Interpretation (test Abnormal code = 65733-6) [facility] HospitalPROTHROMBIN TIME / [id number] 16:29:11 Test Item Value Reference Range Interpretation Comments PROTIME PATIENT (test See_Comment H [Auto mated message] code = 5964-2) The system [employer] generated this result transmitted ref erence range: 10.1 - 1 2.6 Seconds. The reference range was not used to int erpret this result as normal/abnormal . INR (test code = 6301-6) Nor mal INR <1.1; Warfarin Therap eutic range 2.0 to 3. 0 or 2.5 to 3.5, dep ending upon the indica tions. Lab Interpretation (test Abnormal code = 79461-4) [facility] HospitalPROTHROMBIN TIME / [id number] 16:29:11 Test Item Value Reference Range Interpretation Comments PROTIME PATIENT (test See_Comment H [Auto mated message] code = 5964-2) The system [employer] generated this result transmitted ref erence range: 10.1 - 1 2.6 Seconds. The reference range was not used to int erpret this result as normal/abnormal . INR (test code = 6301-6) Nor mal INR <1.1; Warfarin Therap eutic range 2.0 to 3. 0 or 2.5 to 3.5, dep ending upon the indica tions. Lab Interpretation (test Abnormal code = 16251-1) [facility]SE (AUTOMATED)2020-11-04 15:23:28 Test Item Value Reference Range Interpretation Comments POCT GLU (test code = 2565110586) 144 mg/dL 70-110 H Lab Interpretation (test code = Abnormal 13059-1) [facility] METABOLIC PANEL (NA, K, CL, CO2, GLUCOSE, BUN, CREATININE, CA)2020-11-04 10:53:10 Test Item Value Reference Range Interpretation Comments NA (test code = 151 mmol/L 135-145 H 2852130923) K (test code = 3.8 mmol/L 3.5-5.0 9536042367) CL (test code = 119 mmol/L 98-108 H 0216127120) CO2 TOTAL (test code = 27 mmol/L 23-31 7261375332) AGAP (test code = 2-16 0088317135) BUN (test code = 48 mg/dL 7-23 H 6318734755) GLUCOSE (test code = 131 mg/dL 70-110 H 7790740711) CREATININE (test code = 1.36 mg/dL 0.60-1.25 H 5553247298) CALCIUM (test code = 8.1 mg/dL 8.6-10.6 L 8075682619) eGFR (test code = mL/min/1.73m2 3114325305) JUAN LUIS (test code = JUAN LUIS) [...] tests). Lab Interpretation Abnormal (test code = 42152-6) [facility] HospitalMAGNESIUM2021-04-23 10:48:27 Test Item Value Reference Range Interpretation Comments MAGNESIUM (test code = 4311244923) 2.6 mg/dL 1.7-2.4 H Lab Interpretation (test code = Abnormal 85294-0) [facility] HospitalCB WITHOUT [id number] 10:27:45 Test Item Value Reference Range Interpretation Comments WBC (test code = See_Comment H [Automated message] 6690-2) The system [employer] generated this result transmitted ref erence range: 4.20 - 1 0.70 10*3/?L. The reference range was not used to int erpret this result as normal/abnormal . RBC (test code = 789-8) See_Comment L [Au tomated message] The system [employer] generated this result transmitted ref erence range: [...] 777-3) See_Comment [Au tomated message] The system [employer] generated this result transmitted ref erence range: 150 - 32 8 10*3/?L. The reference range was not used to int erpret this result as normal/abnormal . MPV (test code = Not Measure d 80656-3) RDW-CV (test code = 24.3 % 12.1-15.4 H 788-0) RDW-SD (test code = 68.2 fL 38.5-51.6 H 03514-8) NRBC x10^3 (test code = See_Comment [Au tomated message] 8880932392) The system [employer] generated this result transmitted ref erence range: 10*3/?L. The reference range was not used to int erpret this result as normal/abnormal . NRBC/100 WBC (test code See_Comment [Au tomated message] = 3240997065) The system IMT generated this result transmitted ref erence range: 0.0 - 10 .0 /100 WBCs. The reference range was not used to int erpret this result as normal/abnormal . IPF % (test code = 10.2 % 1.2-10.7 Platelet count 0117112241) measured by fluorescence me thod. Lab Interpretation Abnormal (test code = 56925-8) [facility] GLUCOSE (AUTOMATED)2020-11-03 16:55:39 Test Item Value Reference Range Interpretation Comments POCT GLU (test code = 3343826357) 123 mg/dL 70-110 H Lab Interpretation (test code = Abnormal 77719-7) [facility] METABOLIC PANEL (NA, K, CL, CO2, GLUCOSE, BUN, CREATININE, CA)2020-11-03 13:46:00 Test Item Value Reference Range Interpretation Comments NA (test code = 148 mmol/L 135-145 H 0533366043) K (test code = 4.7 mmol/L 3.5-5.0 9313046495) CL (test code = 120 mmol/L 98-108 H 7103274062) CO2 TOTAL (test code = 26 mmol/L 23-31 3713868462) AGAP (test code = 2-16 0672285949) BUN (test code = 47 mg/dL 7-23 H 2829908971) GLUCOSE (test code = 176 mg/dL 70-110 H 7915544771) CREATININE (test code = 1.35 mg/dL 0.60-1.25 H 8567136582) CALCIUM (test code = 8.0 mg/dL 8.6-10.6 L 4022326792) eGFR (test code = mL/min/1.73m2 0494507915) JUAN LUIS (test code = JUAN LUIS) [...] tests). Lab Interpretation Abnormal (test code = 95320-7) [facility]UM2021-04-22 13:34:53 Test Item Value Reference Range Interpretation Comments MAGNESIUM (test code = 9542179393) 2.8 mg/dL 1.7-2.4 H Lab Interpretation (test code = Abnormal 60160-6) [facility]ATED)2020-11-03 12:57:44 Test Item Value Reference Range Interpretation Comments POCT GLU (test code = 2988823571) 190 mg/dL 70-110 H Lab Interpretation (test code = Abnormal 64724-8) [facility] WITH [id number] 11:16:10 Test Item Value Reference Range Interpretation [...] (test code = 62.2 fL 38.5-51.6 H 02669-9) RDW-CV (test code = 23.3 % 12.1-15.4 H 788-0) PLT (test code = See_Comment [Automated 777-3) message] The sy stem which generated this result transmitted reference range : 150 - 328 10*3/ ?L. The reference r christine was not used to interpret this result as normal/abnormal . MPV (test code = Not Measure d 41203-7) IPF % (test code = 8.2 % 1.2-10.7 Platelet count 4756030417) measured by fluorescence method. NRBC/100 WBC (test See_Comment [Automat ed code = 8605259520) message] The system which generated this result transmitted reference range : 0.0 - 10.0 /100 WBCs. The refer ence range was not u sed to interpret th is result as normal/abnormal . NRBC x10^3 (test code See_Comment [Auto mated = 1657659497) message] The s ystem which generated this result transmitted reference range : 10*3/?L. The reference range was not used to interpret this result as normal/abnormal . GRAN MAT (NEUT) % 80.9 % (test code = 770-8) IMM GRAN % (test code 0.50 % = 3017330253) LYMPH % (test code = 5.3 % 736-9) MONO % (test code = 11.6 % 5905-5) EOS % (test code = 1.5 % 713-8) BASO % (test code = 0.2 % 706-2) GRAN MAT x10^3(ANC) 10.75 10*3/uL 1.99-6.95 H (test code = 9456512560) IMM GRAN x10^3 (test 0.06 10*3/uL 0.00-0.06 code = 8667277094) LYMPH x10^3 (test 0.71 10*3/uL 1.09-3.23 L code = 731-0) MONO x10^3 (test code 1.54 10*3/uL 0.36-1.02 H = 742-7) EOS x10^3 (test code 0.20 10*3/uL 0.06-0.53 = 711-2) BASO x10^3 (test code 0.03 10*3/uL 0.01-0.09 = 704-7) BASO STIPPLING (test Present A code = 703-9) SCHISTOCYTES (test 1+ A code = 800-3) Lab Interpretation Abnormal (test code = 88567-9) [facility] WITH [id number] 11:16:10 Test Item Value Reference Range Interpretation Comments WBC (test code = See_Comment H [Automated 4090-2) message] The sy stem which generated this result transmitted reference range : 4.20 - 10.70 10*3/?L. The reference range was not used to interpret this result as normal/abnormal . RBC (test code = See_Comment L [Automated 409-8) message] The sy stem which generated this [...] (test code = 62.2 fL 38.5-51.6 H 01935-8) RDW-CV (test code = 23.3 % 12.1-15.4 H 788-0) PLT (test code = See_Comment [Automated 777-3) message] The sy stem which generated this result transmitted reference range : 150 - 328 10*3/ ?L. The reference r christine was not used to interpret this result as normal/abnormal . MPV (test code = Not Measure d 85350-8) IPF % (test code = 8.2 % 1.2-10.7 Platelet count 0439142212) measured by fluorescence method. NRBC/100 WBC (test See_Comment [Automat ed code = 2163899283) message] The system which generated this result transmitted reference range : 0.0 - 10.0 /100 WBCs. The refer ence range was not u sed to interpret th is result as normal/abnormal . NRBC x10^3 (test code See_Comment [Auto mated = 1702951384) message] The s ystem which generated this result transmitted reference range : 10*3/?L. The reference range was not used to interpret this result as normal/abnormal . GRAN MAT (NEUT) % 80.9 % (test code = 770-8) IMM GRAN % (test code 0.50 % = 7678721516) LYMPH % (test code = 5.3 % 736-9) MONO % (test code = 11.6 % 5905-5) EOS % (test code = 1.5 % 713-8) BASO % (test code = 0.2 % 706-2) GRAN MAT x10^3(ANC) 10.75 10*3/uL 1.99-6.95 H (test code = 9339905675) IMM GRAN x10^3 (test 0.06 10*3/uL 0.00-0.06 code = 1795197455) LYMPH x10^3 (test 0.71 10*3/uL 1.09-3.23 L code = 731-0) MONO x10^3 (test code 1.54 10*3/uL 0.36-1.02 H = 742-7) EOS x10^3 (test code 0.20 10*3/uL 0.06-0.53 = 711-2) BASO x10^3 (test code 0.03 10*3/uL 0.01-0.09 = 704-7) BASO STIPPLING (test Present A code = 703-9) SCHISTOCYTES (test 1+ A code = 800-3) Lab Interpretation Abnormal (test code = 09366-5) [facility] GLUCOSE (AUTOMATED)2020-11-03 10:14:51 Test Item Value Reference Range Interpretation Comments POCT GLU (test code = 5792109347) 198 mg/dL 70-110 H Lab Interpretation (test code = Abnormal 33582-4) [facility] GLUCOSE (AUTOMATED)2020-11-03 04:39:58 Test Item Value Reference Range Interpretation Comments POCT GLU (test code = 2634401585) 169 mg/dL 70-110 H Lab Interpretation (test code = Abnormal 86433-4) [facility] METABOLIC PANEL (NA, K, CL, CO2, GLUCOSE, BUN, CREATININE, CA)2020-11-03 02:59:33 Test Item Value Reference Range Interpretation Comments NA (test code = 150 mmol/L 135-145 H 3249761169) K (test code = 4.8 mmol/L 3.5-5.0 Slight 9629093497) hemolysis CL (test code = 121 mmol/L 98-108 H 5182079073) CO2 TOTAL (test code 24 mmol/L 23-31 = 8448159898) AGAP (test code = 2-16 2156736715) BUN (test code = 48 mg/dL 7-23 H Slight 2818547542) hemolysis GLUCOSE (test code = 135 mg/dL 70-110 H 0866204484) CREATININE (test code 1.25 mg/dL 0.60-1.25 = 4692824256) CALCIUM (test code = 7.7 mg/dL 8.6-10.6 L 1447151837) eGFR (test code = mL/min/1.73m2 6102505183) JUAN LUIS (test code = JUAN LUIS) [...] tests). Lab Interpretation Abnormal (test code = 99039-3) [facility] 02:51:21 Test Item Value Reference Range Interpretation Comments MAGNESIUM (test code = 6035193468) 2.5 mg/dL 1.7-2.4 H Lab Interpretation (test code = Abnormal 75271-8) [facility]MENING[facility]/ENCEPHALITIS PANEL BY [id number] 23:12:08 Test Item Value Reference Range Interpretation Comments Escherichia coli K1 Negative Negative, (test code = 33073-3) Indeterminate, See Comment Haemophilus influenzae Negative Negative, (test code = 92937-7) Indeterminate, See Comment Listeria monocytogenes Negative Negative, (test code = 81690-1) Indeterminate, See Comment Neisseria meningitidis Negative Negative, (encapsulated) (test Indeterminate, code = 56956-4) See Comment Streptococcus agalactiae Negative Negative, (test code = 64929-3) Indeterminate, See Comment Streptococcus pneumoniae Negative Negative, (test code = 49931-1) Indeterminate, See Comment Cytomegalovirus (test Negative Negative, code = 30222-7) Indeterminate, See Comment Enterovirus (test code = Negative Negative, 82260-9) Indeterminate, See Comment Herpes simplex virus 1 Negative Negative, (test code = 07941-6) Indeterminate, See Comment Herpes simplex virus 2 Negative Negative, (test code = 16183-8) Indeterminate, See Comment Human herpesvirus 6 Negative Negative, (test code = 36765-3) Indeterminate, See Comment Human parechovirus (test Negative Negative, code = 54855-6) Indeterminate, See Comment Varicella zoster virus Negative Negative, (test code = 29090-8) Indeterminate, See Comment Cryptococcus Negative Negative, neoformans/gattii (test Indeterminate, code = 96698-5) See Comment JUAN LUIS (test code = JUAN LUIS) Negative:A negative result does not rule-out infection. ?This assay does not test for all potential infectious agents. Positive:A positive test result does not necessarily indicate the presence of viable organism. ? Lab Interpretation (test Normal code = 19113-1) [facility] BranchMENINGITIS/ENCEPHALITIS PANEL BY [id number] 23:12:08 Test Item Value Reference Range Interpretation Comments Escherichia coli K1 Negative Negative, (test code = 00455-2) Indeterminate, See Comment Haemophilus influenzae Negative Negative, (test code = 70986-2) Indeterminate, See Comment Listeria monocytogenes Negative Negative, (test code = 70415-3) Indeterminate, See Comment Neisseria meningitidis Negative Negative, (encapsulated) (test Indeterminate, code = 35893-9) See Comment Streptococcus agalactiae Negative Negative, (test code = 99207-3) Indeterminate, See Comment Streptococcus pneumoniae Negative Negative, (test code = 34775-3) Indeterminate, See Comment Cytomegalovirus (test Negative Negative, code = 88203-2) Indeterminate, See Comment Enterovirus (test code = Negative Negative, 56810-8) Indeterminate, See Comment Herpes simplex virus 1 Negative Negative, (test code = 27763-8) Indeterminate, See Comment Herpes simplex virus 2 Negative Negative, (test code = 43116-0) Indeterminate, See Comment Human herpesvirus 6 Negative Negative, (test code = 85559-9) Indeterminate, See Comment Human parechovirus (test Negative Negative, code = 42634-7) Indeterminate, See Comment Varicella zoster virus Negative Negative, (test code = 01669-4) Indeterminate, See Comment Cryptococcus Negative Negative, neoformans/gattii (test Indeterminate, code = 24518-7) See Comment JUAN LUIS (test code = JUAN LUIS) Negative:A negative result does not rule-out infection. ?This assay does not test for all potential infectious agents. Positive:A positive test result does not necessarily indicate the presence of viable organism. ? Lab Interpretation (test Normal code = 94026-3) [facility]ENCEPHALITIS PANEL BY [id number] 23:12:08 Test Item Value Reference Range Interpretation Comments Escherichia coli K1 Negative Negative, (test code = 41336-7) Indeterminate, See Comment Haemophilus influenzae Negative Negative, (test code = 12874-2) Indeterminate, See Comment Listeria monocytogenes Negative Negative, (test code = 54775-7) Indeterminate, See Comment Neisseria meningitidis Negative Negative, (encapsulated) (test Indeterminate, code = 62423-2) See Comment Streptococcus agalactiae Negative Negative, (test code = 39071-5) Indeterminate, See Comment Streptococcus pneumoniae Negative Negative, (test code = 17523-8) Indeterminate, See Comment Cytomegalovirus (test Negative Negative, code = 14557-7) Indeterminate, See Comment Enterovirus (test code = Negative Negative, 97932-1) Indeterminate, See Comment Herpes simplex virus 1 Negative Negative, (test code = 20642-0) Indeterminate, See Comment Herpes simplex virus 2 Negative Negative, (test code = 72414-3) Indeterminate, See Comment Human herpesvirus 6 Negative Negative, (test code = 59558-3) Indeterminate, See Comment Human parechovirus (test Negative Negative, code = 23755-3) Indeterminate, See Comment Varicella zoster virus Negative Negative, (test code = 57504-6) Indeterminate, See Comment Cryptococcus Negative Negative, neoformans/gattii (test Indeterminate, code = 42714-6) See Comment JUAN LUIS (test code = JUAN LUIS) Negative:A negative result does not rule-out infection. ?This assay does not test for all potential infectious agents. Positive:A positive test result does not necessarily indicate the presence of viable organism. ? Lab Interpretation (test Normal code = 72255-8) [facility] GLUCOSE (AUTOMATED)2020-11-02 22:21:28 Test Item Value Reference Range Interpretation Comments POCT GLU (test code = 0940939885) 94 mg/dL 70-110 Lab Interpretation (test code = Normal 74034-3) [facility] FLUID DIRECT [id number] 22:15:37 Test Item Value Reference Range Interpretation Comments BF COLOR (test code = Clear 7101683492) BF WBC Count (test See_Comment [Automat ed message] The code = 3391878531) system [facility] generated this result transmit tennille reference range : 0 - 5 /?L. The reference r christine was not used to interpr et this result as bri l/abnormal. BF RBC Count (test See_Comment [Automat ed message] The code = 2547828735) system [facility] generated this result transmit tennille reference range : /?L. The reference range was not used to interpr et this result as bri l/abnormal. [facility] FLUID DIRECT [id number] 22:15:37 Test Item Value Reference Range Interpretation Comments BF COLOR (test code = Clear 0827198135) BF WBC Count (test See_Comment [Automat ed message] The code = 3861235133) system [facility] generated this result transmit tennille reference range : 0 - 5 /?L. The reference r christine was not used to interpr et this result as bri l/abnormal. BF RBC Count (test See_Comment [Automat ed message] The code = 7076115282) system [facility] generated this result transmit tennille reference range : /?L. The reference range was not used to interpr et this result as bri l/abnormal. [facility] FLUID DIRECT [id number] 22:15:37 Test Item Value Reference Range Interpretation Comments BF COLOR (test code = Clear 5683216134) BF WBC Count (test See_Comment [Automat ed message] The code = 0576996055) system [facility] generated this result transmit tennille reference range : 0 - 5 /?L. The reference r christine was not used to interpr et this result as bri l/abnormal. BF RBC Count (test See_Comment [Automat ed message] The code = 2008772916) system [facility] generated this result transmit tennille reference range : /?L. The reference range was not used to interpr et this result as bri l/abnormal. [facility] FLUID MANUAL [id number] 22:15:37#CELS CNTDUTMB LABORATORY SERVICESLess than 100 cells counted due to low WBC; Differential is not reported in percent. ?44 cells counted: ?0 Neutrophils, 17 Lymphocytes, 27 MacrophagesUnAdventHealth FLUID MANUAL [id number] 22:15:37#CELS CNTDUTMB LABORATORY SERVICESLess than 100 cells counted due to low WBC; Differential is not reported in percent. ?44 cells counted: ?0 Neutrophils, 17 Lymphocytes, 27 MacrophagesUnUT [facility] HospitalBODY FLUID MANUAL [id number] 22:15:37#CELS CNTDUTMB LABORATORY SERVICESLess than 100 cells counted due to low WBC; Differential is not reported in percent. ?44 cells counted: ?0 Neutrophils, 17 Lymphocytes, 27 Macrophages [facility] [id number] 21:46:09 Test Item Value Reference Range Interpretation Comments GLU CSF (test code = 8681903642) 80 mg/dL 50-80 UNSPUN BODY FLUID COLOR (test Colorless code = 4738596484) UNSPUN BODY FLUID CLARITY (test Clear code = 4163882780) SPUN BODY FLUID COLOR (test code Colorless = 7321583813) SPUN BODY FLUID CLARITY (test Clear code = 0975512074) Sediment (test code = No sediment. 3261774660) [facility] [id number] 21:46:09 Test Item Value Reference Range Interpretation Comments GLU CSF (test code = 9002676523) 80 mg/dL 50-80 UNSPUN BODY FLUID COLOR (test Colorless code = 0229065641) UNSPUN BODY FLUID CLARITY (test Clear code = 1966223654) SPUN BODY FLUID COLOR (test code Colorless = 9698023937) SPUN BODY FLUID CLARITY (test Clear code = 3726666966) Sediment (test code = No sediment. 9925342215) [facility] [id number] 21:46:09 Test Item Value Reference Range Interpretation Comments GLU CSF (test code = 1583994577) 80 mg/dL 50-80 UNSPUN BODY FLUID COLOR (test Colorless code = 7227104394) UNSPUN BODY FLUID CLARITY (test Clear code = 5799169902) SPUN BODY FLUID COLOR (test code Colorless = 4599164231) SPUN BODY FLUID CLARITY (test Clear code = 9807394431) Sediment (test code = No sediment. 6471610720) [facility] [id number] 21:46:03 Test Item Value Reference Range Interpretation Comments T. PRO CSF (test code = 103.0 mg/dL 15.0-45.0 H 5662417517) UNSPUN BODY FLUID COLOR (test Colorless code = 6564084082) UNSPUN BODY FLUID CLARITY (test Clear code = 9378158482) SPUN BODY FLUID COLOR (test code Colorless = 8665431368) SPUN BODY FLUID CLARITY (test Clear code = 7957807306) Sediment (test code = No sediment. 0488412232) Lab Interpretation (test code = Abnormal 73827-1) [facility] [id number] 21:46:03 Test Item Value Reference Range Interpretation Comments T. PRO CSF (test code = 103.0 mg/dL 15.0-45.0 H 2827018809) UNSPUN BODY FLUID COLOR (test Colorless code = 8486479665) UNSPUN BODY FLUID CLARITY (test Clear code = 7117947590) SPUN BODY FLUID COLOR (test code Colorless = 9736154069) SPUN BODY FLUID CLARITY (test Clear code = 8261743491) Sediment (test code = No sediment. 4653592809) Lab Interpretation (test code = Abnormal 72478-4) [facility] [id number] 21:46:03 Test Item Value Reference Range Interpretation Comments T. PRO CSF (test code = 103.0 mg/dL 15.0-45.0 H 8685962166) UNSPUN BODY FLUID COLOR (test Colorless code = 4425214901) UNSPUN BODY FLUID CLARITY (test Clear code = 7868268353) SPUN BODY FLUID COLOR (test code Colorless = 3202259380) SPUN BODY FLUID CLARITY (test Clear code = 8763602818) Sediment (test code = No sediment. 6785923865) Lab Interpretation (test code = Abnormal 50556-6) [facility] METABOLIC PANEL (NA, K, CL, CO2, GLUCOSE, BUN, CREATININE, CA)2020-11-02 18:27:27 Test Item Value Reference Range Interpretation Comments NA (test code = 152 mmol/L 135-145 H 8380459235) K (test code = 3.8 mmol/L 3.5-5.0 2891965029) CL (test code = 123 mmol/L 98-108 H 9904237247) CO2 TOTAL (test code = 23 mmol/L 23-31 2567700885) AGAP (test code = 2-16 3496141885) BUN (test code = 49 mg/dL 7-23 H 7140543953) GLUCOSE (test code = 150 mg/dL 70-110 H 7562369059) CREATININE (test code = 1.37 mg/dL 0.60-1.25 H 0438153964) CALCIUM (test code = 7.9 mg/dL 8.6-10.6 L 7850985900) eGFR (test code = mL/min/1.73m2 0584025002) JUAN LUIS (test code = JUAN LUIS) [...] tests). Lab Interpretation Abnormal (test code = 37516-2) [facility]2021-04-21 18:24:34 Test Item Value Reference Range Interpretation Comments MAGNESIUM (test code = 9858000128) 2.7 mg/dL 1.7-2.4 H Lab Interpretation (test code = Abnormal 04467-7) [facility]2021-04-21 17:42:23 Test Item Value Reference Range Interpretation Comments MAGNESIUM (test code = 5769573442) 2.6 mg/dL 1.7-2.4 H Lab Interpretation (test code = Abnormal 11191-9) [facility] GLUCOSE (AUTOMATED)2020-11-02 16:39:58 Test Item Value Reference Range Interpretation Comments POCT GLU (test code = 2177248830) 148 mg/dL 70-110 H Lab Interpretation (test code = Abnormal 21552-6) [facility] GLUCOSE (AUTOMATED)2020-11-02 12:48:24 Test Item Value Reference Range Interpretation Comments POCT GLU (test code = 1750006763) 183 mg/dL 70-110 H Lab Interpretation (test code = Abnormal 77579-1) [facility] WITH [id number] 10:59:44 Test Item Value Reference Range Interpretation [...] (test code = 60.9 fL 38.5-51.6 H 20518-3) RDW-CV (test code = 22.7 % 12.1-15.4 H 788-0) PLT (test code = See_Comment L [Automated 777-3) message] The sy stem which generated this result transmitted reference range : 150 - 328 10*3/ ?L. The reference r christine was not used to interpret this result as normal/abnormal . MPV (test code = Not Measure d 99375-7) IPF % (test code = 9.7 % 1.2-10.7 Platelet count 6634843373) measured by fluorescence method. NRBC/100 WBC (test See_Comment [Automat ed code = 8110742475) message] The system which generated this result transmitted reference range : 0.0 - 10.0 /100 WBCs. The refer ence range was not u sed to interpret th is result as normal/abnormal . NRBC x10^3 (test code See_Comment [Auto mated = 6275907228) message] The s ystem which generated this result transmitted reference range : 10*3/?L. The reference range was not used to interpret this result as normal/abnormal . GRAN MAT (NEUT) % 81.9 % (test code = 770-8) IMM GRAN % (test code 0.80 % = 6913561111) LYMPH % (test code = 6.7 % 736-9) MONO % (test code = 8.4 % 5905-5) EOS % (test code = 2.0 % 713-8) BASO % (test code = 0.2 % 706-2) GRAN MAT x10^3(ANC) 11.65 10*3/uL 1.99-6.95 H (test code = 7679953592) IMM GRAN x10^3 (test 0.11 10*3/uL 0.00-0.06 H code = 9709379436) LYMPH x10^3 (test 0.96 10*3/uL 1.09-3.23 L code = 731-0) MONO x10^3 (test code 1.20 10*3/uL 0.36-1.02 H = 742-7) EOS x10^3 (test code 0.28 10*3/uL 0.06-0.53 = 711-2) BASO x10^3 (test code 0.03 10*3/uL 0.01-0.09 = 704-7) SCHISTOCYTES (test 1+ A code = 800-3) BANDS (test code = Increased A 1416854731) TOXIC CHANGES (test Present A code = 803-7) GIANT PLATELETS (test Present See_Comment A [Auto mated code = 5908-9) message] The system which generated this result transmitted reference range : (none). The reference range was not used to interpret this result as normal/abnormal . Lab Interpretation Abnormal (test code = 57156-9) [facility] METABOLIC PANEL (NA, K, CL, CO2, GLUCOSE, BUN, CREATININE, CA)2020-11-02 10:52:59 Test Item Value Reference Range Interpretation Comments NA (test code = 150 mmol/L 135-145 H 6643865531) K (test code = 4.0 mmol/L 3.5-5.0 6794095920) CL (test code = 121 mmol/L 98-108 H 5029230621) CO2 TOTAL (test code = 22 mmol/L 23-31 L 7667314767) AGAP (test code = 2-16 2977022426) BUN (test code = 49 mg/dL 7-23 H 5468264677) GLUCOSE (test code = 162 mg/dL 70-110 H 3808063682) CREATININE (test code = 1.42 mg/dL 0.60-1.25 H 4620243986) CALCIUM (test code = 7.8 mg/dL 8.6-10.6 L 5314538988) eGFR (test code = mL/min/1.73m2 9558467086) JUAN LUIS (test code = JUAN LUIS) [...] tests). Lab Interpretation Abnormal (test code = 77209-0) [facility], [id number] 07:23:16 Test Item Value Reference Range Interpretation Comments VIT B12 (test code = 956 pg/mL 240-930 H 0131585874) JUAN LUIS (test code = JUAN LUIS) Biotin has been reported to cause a positive bias, interpret results relative to patient's use of biotin. Lab Interpretation (test Abnormal code = 88596-5) [facility] B12, [id number] 07:23:16 Test Item Value Reference Range Interpretation Comments VIT B12 (test code = 956 pg/mL 240-930 H 8133935727) JUAN LUIS (test code = JUAN LUIS) Biotin has been reported to cause a positive bias, interpret results relative to patient's use of biotin. Lab Interpretation (test Abnormal code = 63025-2) [facility] B12, [id number] 07:23:16 Test Item Value Reference Range Interpretation Comments VIT B12 (test code = 956 pg/mL 240-930 H 8216175276) JUAN LUIS (test code = JUAN LUIS) Biotin has been reported to cause a positive bias, interpret results relative to patient's use of biotin. Lab Interpretation (test Abnormal code = 57030-6) [facility] 04:03:00 Test Item Value Reference Range Interpretation Comments FOLATE SER (test code = 6265465825) >20.0 3.0-20.0 H Lab Interpretation (test code = Abnormal 46778-6) [facility] 04:03:00 Test Item Value Reference Range Interpretation Comments FOLATE SER (test code = 9864507292) >20.0 3.0-20.0 H Lab Interpretation (test code = Abnormal 11581-7) [facility]21 04:03:00 Test Item Value Reference Range Interpretation Comments FOLATE SER (test code = 0412984205) >20.0 3.0-20.0 H Lab Interpretation (test code = Abnormal 08595-6) [facility] (AUTOMATED)2020-11-02 03:58:01 Test Item Value Reference Range Interpretation Comments POCT GLU (test code = 5488369479) 109 mg/dL 70-110 Lab Interpretation (test code = Normal 53558-1) [facility]ULATING [id number] 03:26:53 Test Item Value Reference Range Interpretation Comments TSH (test code = See_Comment Biotin has been 9695111248) reported to cau se a negative bias, interpret resul ts relative to pat ient's use of biotin. [Automated mess age] The system [employer] generated this result transmitted ref erence range: 0.45 - 4 .70 mIU/L. The refe rence range was not u sed to interpret this result as normal/abnor mal. Lab Interpretation (test Normal code = 28990-9) [facility] [id number] 03:26:53 Test Item Value Reference Range Interpretation Comments TSH (test code = See_Comment Biotin has been 6607261348) reported to cau se a negative bias, interpret resul ts relative to pat ient's use of biotin. [Automated mess age] The system [employer] generated this result transmitted ref erence range: 0.45 - 4 .70 mIU/L. The refe rence range was not u sed to interpret this result as normal/abnor mal. Lab Interpretation (test Normal code = 31799-5) [facility] [id number] 03:26:53 Test Item Value Reference Range Interpretation Comments TSH (test code = See_Comment Biotin has been 3995859640) reported to cau se a negative bias, interpret resul ts relative to pat jvnt's use of biotin. [Automated mess age] The system [employer] generated this result transmitted ref erence range: 0.45 - 4 .70 mIU/L. The refe rence range was not u sed to interpret this result as normal/abnor mal. Lab Interpretation (test Normal code = 22277-6) [facility] CULTURE [id number] 01:01:36 Test Item Value Reference Range Interpretation Comments Blood Culture-Aerobic No organisms No growth Previo us (test code = 38390-9) isolated prelim inary verified result was Culture [...] Culture-Anaerobic isolated preliminar y (test code = 15784-8) verifi ed result was Culture In Progress [...] CDT Lab Interpretation Normal (test code = 10144-5) [facility] CULTURE [id number] 01:01:36 Test Item Value Reference Range Interpretation Comments Blood Culture-Aerobic No organisms No growth Previo us (test code = 71349-7) isolated prelim inary verified result was Culture [...] Culture-Anaerobic isolated preliminar y (test code = 09210-1) verifi ed result was Culture In Progress [...] CDT Lab Interpretation Normal (test code = 26075-8) [facility] [id number] 01:01:36 Test Item Value Reference Range Interpretation Comments Blood Culture-Aerobic No organisms No growth Previo us (test code = 29951-3) isolated prelim inary verified result was Culture [...] Culture-Anaerobic isolated preliminar y (test code = 15365-6) verifi ed result was Culture In Progress [...] CDT Lab Interpretation Normal (test code = 89536-4) [facility] [id number] 01:01:36 Test Item Value Reference Range Interpretation Comments Blood Culture-Aerobic No organisms No growth Previo us (test code = 34412-4) isolated prelim inary verified result was Culture [...] Culture-Anaerobic isolated preliminar y (test code = 19071-8) verifi ed result was Culture In Progress [...] CDT Lab Interpretation Normal (test code = 29430-4) [facility]2020-11-02 00:43:35 Test Item Value Reference Range Interpretation Comments POCT GLU (test code = 8238047579) 204 mg/dL 70-110 H Lab Interpretation (test code = Abnormal 17702-1) [facility]ro[facility] (EEG) - Duration of test: 20-60 mins; Release to patient: [id number] 00:00:00Date and Time of Procedure: 11/02/2020, 8:47:43 [...] Lindsey Rose MD Date of int erpretation: 11/02/2020[facility] Duration of test: 20-60 mins; Release to patient: [id number] 00:00:00Date and Time of Procedure: 11/02/2020, 8:47:43 [...] indicated. Lindsey Rose MD Date of interpretation: 11/02/2020[facility] Electroencephalogram (EEG) - Duration of test: 20-60 mins; Release to patient: [id number] 00:00:00Date and Time of Procedure: 11/02/2020, 8:47:43 [...] Lindsey Rose MD Date of int erpretation: [facility]02/2020[facility] 2020-11-01 21:47:18 Test Item Value Reference Range Interpretation Comments POCT GLU (test code = 0048625985) 155 mg/dL 70-110 H Lab Interpretation (test code = Abnormal 18444-0) [facility] GLUCOSE (AUTOMATED)2020-11-01 21:00:48 Test Item Value Reference Range Interpretation Comments POCT GLU (test code = 2641286783) 149 mg/dL 70-110 H Lab Interpretation (test code = Abnormal 41096-6) [facility]AL[facility]ONIN2021-04-20 20:04:50 Test Item Value Reference Range Interpretation Comments Procalcitonin (test 0.24 ng/mL <0.07 H code = 9668028617) JUAN LUIS (test code = JUAN LUIS) [...] lung abscess/empyema. For further information please refer to:[email or web address] Lab Interpretation Abnormal (test code = 33449-3) [facility]IN2021-04-20 20:04:50 Test Item Value Reference Range Interpretation Comments Procalcitonin (test 0.24 ng/mL <0.07 H code = 6878560659) JUAN LUIS (test code = JUAN LUIS) [...] lung abscess/empyema. For further information please refer to:[email or web address] Lab Interpretation Abnormal (test code = 67198-1) [facility]2021-04-20 20:04:50 Test Item Value Reference Range Interpretation Comments Procalcitonin (test 0.24 ng/mL <0.07 H code = 7837734853) JUAN LUIS (test code = JUAN LUIS) [...] lung abscess/empyema. For further information please refer to:[email or web address] Lab Interpretation Abnormal (test code = 83284-2) [facility] (NA, K, CL, CO2, GLUCOSE, BUN, CREATININE, CA)2020-11-01 18:21:16 Test Item Value Reference Range Interpretation Comments NA (test code = 149 mmol/L 135-145 H 3526818529) K (test code = 3.9 mmol/L 3.5-5.0 4391081000) CL (test code = 121 mmol/L 98-108 H 4137943209) CO2 TOTAL (test code = 22 mmol/L 23-31 L 7089554950) AGAP (test code = 2-16 5069489407) BUN (test code = 47 mg/dL 7-23 H 8437703182) GLUCOSE (test code = 218 mg/dL 70-110 H 8938363147) CREATININE (test code = 1.42 mg/dL 0.60-1.25 H 4723196366) CALCIUM (test code = 7.6 mg/dL 8.6-10.6 L 1258520504) eGFR (test code = mL/min/1.73m2 3269311429) JUAN LUIS (test code = JUAN LUIS) [...] tests). Lab Interpretation Abnormal (test code = 26176-2) [facility] GLUCOSE (AUTOMATED)2020-11-01 17:04:41 Test Item Value Reference Range Interpretation Comments POCT GLU (test code = 3741592132) 246 mg/dL 70-110 H Lab Interpretation (test code = Abnormal 79411-4) [facility] GLUCOSE (AUTOMATED)2020-11-01 12:53:56 Test Item Value Reference Range Interpretation Comments POCT GLU (test code = 5595721033) 214 mg/dL 70-110 H Lab Interpretation (test code = Abnormal 31835-3) [facility] WITH [id number] 11:03:22 Test Item Value Reference Range Interpretation Comments WBC (test code = See_Comment H [Automated 9290-2) message] The sy stem which generated this result transmitted reference range : 4.20 - 10.70 10*3/?L. The reference range was not used to interpret this result as normal/abnormal . RBC (test code = See_Comment L [Automated 289-8) message] The sy stem which generated this [...] (test code = 60.5 fL 38.5-51.6 H 56187-0) RDW-CV (test code = 22.5 % 12.1-15.4 H 788-0) PLT (test code = See_Comment L [Automated 777-3) message] The sy stem which generated this result transmitted reference range : 150 - 328 10*3/ ?L. The reference r christine was not used to interpret this result as normal/abnormal . MPV (test code = Not Measure d 38375-4) IPF % (test code = 6.1 % 1.2-10.7 Platelet count 9022151773) measured by fluorescence method. NRBC/100 WBC (test See_Comment [Automat ed code = 0804069494) message] The system which generated this result transmitted reference range : 0.0 - 10.0 /100 WBCs. The refer ence range was not u sed to interpret th is result as normal/abnormal . NRBC x10^3 (test code See_Comment [Auto mated = 1422866799) message] The s ystem which generated this result transmitted reference range : 10*3/?L. The reference range was not used to interpret this result as normal/abnormal . GRAN MAT (NEUT) % 83.1 % (test code = 770-8) IMM GRAN % (test code 1.00 % = 0428853382) LYMPH % (test code = 7.0 % 736-9) MONO % (test code = 6.7 % 5905-5) EOS % (test code = 2.0 % 713-8) BASO % (test code = 0.2 % 706-2) GRAN MAT x10^3(ANC) 12.96 10*3/uL 1.99-6.95 H (test code = 7656050631) IMM GRAN x10^3 (test 0.15 10*3/uL 0.00-0.06 H code = 6741026591) LYMPH x10^3 (test 1.09 10*3/uL 1.09-3.23 code = 731-0) MONO x10^3 (test code 1.05 10*3/uL 0.36-1.02 H = 742-7) EOS x10^3 (test code 0.31 10*3/uL 0.06-0.53 = 711-2) BASO x10^3 (test code 0.03 10*3/uL 0.01-0.09 = 704-7) SCHISTOCYTES (test 1+ A code = 800-3) TOXIC CHANGES (test Present A code = 803-7) Lab Interpretation Abnormal (test code = 39423-5) [facility] METABOLIC PANEL (NA, K, CL, CO2, GLUCOSE, BUN, CREATININE, CA)2020-11-01 10:58:55 Test Item Value Reference Range Interpretation Comments NA (test code = 151 mmol/L 135-145 H 6952732933) K (test code = 4.0 mmol/L 3.5-5.0 3637567725) CL (test code = 124 mmol/L 98-108 H 2822495930) CO2 TOTAL (test code = 22 mmol/L 23-31 L 0409666606) AGAP (test code = 2-16 3522676201) BUN (test code = 48 mg/dL 7-23 H 2872618172) GLUCOSE (test code = 201 mg/dL 70-110 H 9894865234) CREATININE (test code = 1.46 mg/dL 0.60-1.25 H 1212786998) CALCIUM (test code = 7.7 mg/dL 8.6-10.6 L 7782657014) eGFR (test code = mL/min/1.73m2 6494433660) JUAN LUIS (test code = JUAN LUIS) [...] tests). Lab Interpretation Abnormal (test code = 61646-2) [facility] GLUCOSE (AUTOMATED)2020-11-01 10:42:03 Test Item Value Reference Range Interpretation Comments POCT GLU (test code = 1442355582) 208 mg/dL 70-110 H Lab Interpretation (test code = Abnormal 73579-4) [facility] GLUCOSE (AUTOMATED)2020-11-01 08:18:28 Test Item Value Reference Range Interpretation Comments POCT GLU (test code = 0788434086) 218 mg/dL 70-110 H Lab Interpretation (test code = Abnormal 15700-0) [facility] (NA, K, CL, CO2, GLUCOSE, BUN, CREATININE, CA)2020-11-01 06:04:39 Test Item Value Reference Range Interpretation Comments NA (test code = 152 mmol/L 135-145 H 9018835141) K (test code = 4.0 mmol/L 3.5-5.0 6065673186) CL (test code = 123 mmol/L 98-108 H 0410075857) CO2 TOTAL (test code = 23 mmol/L 23-31 0499032508) AGAP (test code = 2-16 3126929643) BUN (test code = 49 mg/dL 7-23 H 5479356275) GLUCOSE (test code = 144 mg/dL 70-110 H 9389337904) CREATININE (test code = 1.47 mg/dL 0.60-1.25 H 5883768927) CALCIUM (test code = 7.9 mg/dL 8.6-10.6 L 3534438178) eGFR (test code = mL/min/1.73m2 8353811532) JUAN LUIS (test code = JUAN LUIS) [...] tests). Lab Interpretation Abnormal (test code = 59104-1) [facility] GLUCOSE (AUTOMATED)2020-11-01 05:17:31 Test Item Value Reference Range Interpretation Comments POCT GLU (test code = 1133805884) 137 mg/dL 70-110 H Lab Interpretation (test code = Abnormal 34382-7) [facility]2020-11-01 02:27:59 Test Item Value Reference Range Interpretation Comments POCT GLU (test code = 7778863829) 129 mg/dL 70-110 H Lab Interpretation (test code = Abnormal 68392-3) [facility] STROKE BRAIN WO [id number] 01:52:27 Within confines of motion degradation, no [...] confines of motion degradation, no acute intracranial abnormality.[facility] STROKE BRAIN WO [id number] 01:52:27 Within confines of motion degradation, no [...] confines of motion degradation, no acute intracranial abnormality.[facility] STROKE BRAIN WO [id number] 01:52:27 Within confines of motion degradation, no [...] confines of motion degradation, no acute intracranial abnormality.[facility] GLUCOSE (AUTOMATED)2020-10-31 23:28:12 Test Item Value Reference Range Interpretation Comments POCT GLU (test code = 7266927481) 194 mg/dL 70-110 H Lab Interpretation (test code = Abnormal 13185-0) [facility] GLUCOSE (AUTOMATED)2020-10-31 16:44:35 Test Item Value Reference Range Interpretation Comments POCT GLU (test code = 9295313038) 230 mg/dL 70-110 H Lab Interpretation (test code = Abnormal 00510-7) [facility] 1 [id number] 13:11:08EXAM: XR CHEST 1 VW HISTORY: SOB [...] The upper lungs are slightlycongested but otherwise clear.[facility] [id number] 13:11:08EXAM: XR CHEST 1 VW HISTORY: SOB [...] The upper lungs are slightlycongested but otherwise clear.[facility])2020-10-31 12:52:48 Test Item Value Reference Range Interpretation Comments POCT GLU (test code = 3170266640) 285 mg/dL 70-110 H Lab Interpretation (test code = Abnormal 91582-0) [facility]EMO[facility] - 30 minutes after transfusion of each [id number] 11:57:20 Test Item Value Reference Range Interpretation Comments WBC (test code = See_Comment H [Automated message] 6690-2) The system [employer] generated this result transmitted ref erence range: 4.20 - 1 0.70 10*3/?L. The reference range was not used to int erpret this result as normal/abnormal . RBC (test code = 789-8) See_Comment L [Au tomated message] The system [employer] generated this result transmitted ref erence range: [...] See_Comment L [Au tomated message] The system [employer] generated this result transmitted ref erence range: 150 - 32 8 10*3/?L. The reference range was not used to int erpret this result as normal/abnormal . MPV (test code = Not Measure d 61228-4) RDW-CV (test code = 22.4 % 12.1-15.4 H 788-0) RDW-SD (test code = 61.0 fL 38.5-51.6 H 18811-3) NRBC x10^3 (test code = See_Comment [Au tomated message] 2253909397) The system [employer] generated this result transmitted ref erence range: 10*3/?L. The reference range was not used to int erpret this result as normal/abnormal . NRBC/100 WBC (test code See_Comment [Au tomated message] = 9586510165) The system [facility] generated this result transmitted ref erence range: 0.0 - 10 .0 /100 WBCs. The reference range was not used to int erpret this result as normal/abnormal . IPF % (test code = 6.6 % 1.2-10.7 Platelet count 8018140312) measured by fluorescence me thod. Lab Interpretation Abnormal (test code = 06838-3) [facility] Packed RBC (in units), 1 Units 2020-10-31 06:44:13 Test Item Value Reference Range Interpretation Comments Cross Match Result Compatible (test code = 4409) ISBT Blood Type Code (test code = 760957) Unit Blood Type (test A Pos code = 4410) Unit Number (test [id number] code = 4411) Blood Expiration Date & Time (test code = 651672) Status Information Issued (test code = 4412) Product Red Blood Cells Identification (test code = 4413) Product Code (test [id number] Performed at [facility] code = 4414) Laboratory Services - [facility] Blood [address] [place] [address]Ahqm Free: [phone] A No. [id number] [facility] Packed RBC (in units), 1 Units 2020-10-31 06:44:13 Test Item Value Reference Range Interpretation Comments Cross Match Result Compatible (test code = 4409) ISBT Blood Type Code (test code = 018122) Unit Blood Type (test A Pos code = 4410) Unit Number (test [id number] code = 4411) Blood Expiration Date & Time (test code = 792486) Status Information Issued (test code = 4412) Product Red Blood Cells Identification (test code = 4413) Product Code (test [id number] Performed at [facility] code = 4414) Laboratory [facility] Blood [address] [place] [address] Free: [phone] A No. [id number] [facility] Packed RBC (in units), 1 Units 2020-10-31 06:44:13 Test Item Value Reference Range Interpretation Comments Cross Match Result Compatible (test code = 4409) ISBT Blood Type Code (test code = 184794) Unit Blood Type (test A Pos code = 4410) Unit Number (test [id number] code = 4411) Blood Expiration Date & Time (test code = 479968) Status Information Issued (test code = 4412) Product Red Blood Cells Identification (test code = 4413) Product Code (test [id number] Performed at [facility] code = 4414) Laboratory [place] [facility] [address] s [address]Gbia Free: [phone] A No. [id number] [facility] and Screen - ONCE [id number] 06:28:19 Test Item Value Reference Range Interpretation Comments ABO & RH (test code A POSITIVE Performe d at [facility] = 20) Laboratory [facility] [place] [address] s [address]Bydv Free: [phone] A No. [id number] IAT (test code = Negative [place]formed a [place] 1185) Laboratory [facility] [address] [place] [address] s [address]Cccr Free: [phone] A No. [id number] [facility] and Screen - ONCE [id number] 06:28:19 Test Item Value Reference Range Interpretation Comments ABO & RH (test code A POSITIVE Performe d at [facility] = 20) Laboratory [facility] [address] [place] [address]Btpq Free: [phone] A No. [id number] IAT (test code = Negative Performed a t [facility] 1185) Laboratory [facility] [address] [address]Reyz Free: [phone] A No. [id number] [facility] - ONCE [id number] 06:28:19 Test Item Value Reference Range Interpretation Comments ABO & RH (test code A POSITIVE Performe d at [facility] = 20) Laboratory [facility] [address] [address]Fruh Free: [phone] A No. [id number] IAT (test code = Negative Performed a t [facility] 1185) Laboratory [facility] [address] [address]Oull Free: [phone] A No. [id number] [facility])2020-10-31 05:36:57 Test Item Value Reference Range Interpretation Comments POCT GLU (test code = 5726241200) 242 mg/dL 70-110 H Lab Interpretation (test code = Abnormal 16511-9) [facility]2021-[facility]-19 05:07:27 Test Item Value Reference Range Interpretation Comments MAGNESIUM (test code = 2505835288) 2.5 mg/dL 1.7-2.4 H Lab Interpretation (test code = Abnormal 64304-2) [facility] WITH [id number] 04:57:09 Test Item Value Reference Range Interpretation [...] (test code = 60.2 fL 38.5-51.6 H 28219-6) RDW-CV (test code = 22.7 % 12.1-15.4 H 788-0) PLT (test code = See_Comment L [Automated 777-3) message] The sy stem which generated this result transmitted reference range : 150 - 328 10*3/ ?L. The reference r christine was not used to interpret this result as normal/abnormal . MPV (test code = Not Measure d 32930-7) IPF % (test code = 3.4 % 1.2-10.7 Platelet count 1004254418) measured by fluorescence method. NRBC/100 WBC (test See_Comment [Automat ed code = 5200421904) message] The system which generated this result transmitted reference range : 0.0 - 10.0 /100 WBCs. The refer ence range was not u sed to interpret th is result as normal/abnormal . NRBC x10^3 (test code <0.01 See_Comment [Auto mated = 4976289549) message] The s ystem which generated this result transmitted reference range : 10*3/?L. The reference range was not used to interpret this result as normal/abnormal . GRAN MAT (NEUT) % 82.8 % (test code = 770-8) IMM GRAN % (test code 1.10 % = 9556448565) LYMPH % (test code = 7.8 % 736-9) MONO % (test code = 7.0 % 5905-5) EOS % (test code = 1.2 % 713-8) BASO % (test code = 0.1 % 706-2) GRAN MAT x10^3(ANC) 11.75 10*3/uL 1.99-6.95 H (test code = 9870233240) IMM GRAN x10^3 (test 0.16 10*3/uL 0.00-0.06 H code = 5737500403) LYMPH x10^3 (test 1.10 10*3/uL 1.09-3.23 code = 731-0) MONO x10^3 (test code 0.99 10*3/uL 0.36-1.02 = 742-7) EOS x10^3 (test code 0.17 10*3/uL 0.06-0.53 = 711-2) BASO x10^3 (test code <0.03 0.01-0.09 = 704-7) SCHISTOCYTES (test 1+ A code = 800-3) Lab Interpretation Abnormal (test code = 27149-6) [facility] (for use with Heparin Drip)2020-10-31 04:49:42 Test Item Value Reference Range Interpretation Comments APTT Patient (test code See_Comment H [Au tomated message] = 3173-2) The system [employer] generated this result transmitted ref erence range: 26 - 36 Seconds. The reference range was not used to int erpret this result as normal/abnormal . Lab Interpretation (test Abnormal code = 72921-8) [facility] (for use with Heparin Drip)2020-10-31 04:49:42 Test Item Value Reference Range Interpretation Comments APTT Patient (test code See_Comment H [Au tomated message] = 3173-2) The system [employer] generated this result transmitted ref erence range: 26 - 36 Seconds. The reference range was not used to int erpret this result as normal/abnormal . Lab Interpretation (test Abnormal code = 49713-1) [facility] (for use with Heparin Drip)2020-10-31 04:49:42 Test Item Value Reference Range Interpretation Comments APTT Patient (test code See_Comment H [Au tomated message] = 3173-2) The system [employer] generated this result transmitted ref erence range: 26 - 36 Seconds. The reference range was not used to int erpret this result as normal/abnormal . Lab Interpretation (test Abnormal code = 14246-8) [facility] (NA, K, CL, CO2, GLUCOSE, BUN, CREATININE, CA)2020-10-31 04:34:49 Test Item Value Reference Range Interpretation Comments NA (test code = 151 mmol/L 135-145 H 5207613532) K (test code = 3.9 mmol/L 3.5-5.0 5580018904) CL (test code = 124 mmol/L 98-108 H 8345782348) CO2 TOTAL (test code = 22 mmol/L 23-31 L 6679267927) AGAP (test code = 2-16 8125381374) BUN (test code = 52 mg/dL 7-23 H 6253800544) GLUCOSE (test code = 212 mg/dL 70-110 H 0891491134) CREATININE (test code = 1.44 mg/dL 0.60-1.25 H 1570804659) CALCIUM (test code = 8.0 mg/dL 8.6-10.6 L 1833820412) eGFR (test code = mL/min/1.73m2 2712228683) JUAN LUIS (test code = JUAN LUIS) [...] tests). Lab Interpretation Abnormal (test code = 54602-9) [facility] GLUCOSE (AUTOMATED)2020-10-31 01:46:55 Test Item Value Reference Range Interpretation Comments POCT GLU (test code = 6832610695) 259 mg/dL 70-110 H Lab Interpretation (test code = Abnormal 92415-3) [facility] GLUCOSE (AUTOMATED)2020-10-30 22:14:20 Test Item Value Reference Range Interpretation Comments POCT GLU (test code = 5607615740) 317 mg/dL 70-110 H Lab Interpretation (test code = Abnormal 73936-9) [facility]2021-[facility]-18 20:38:02 Test Item Value Reference Range Interpretation Comments MAGNESIUM (test code = 7076874697) 2.4 mg/dL 1.7-2.4 Lab Interpretation (test code = Normal 81461-4) [facility] GLUCOSE (AUTOMATED)2020-10-30 19:46:18 Test Item Value Reference Range Interpretation Comments POCT GLU (test code = 1445464888) 374 mg/dL 70-110 H Lab Interpretation (test code = Abnormal 38530-4) [facility]for use with Heparin Drip)2020-10-30 17:27:09 Test Item Value Reference Range Interpretation Comments APTT Patient (test code See_Comment H [Au tomated message] = 3173-2) The system [employer] generated this result transmitted ref erence range: 26 - 36 Seconds. The reference range was not used to int erpret this result as normal/abnormal . Lab Interpretation (test Abnormal code = 89129-5) [facility] GLUCOSE (AUTOMATED)2020-10-30 17:07:11 Test Item Value Reference Range Interpretation Comments POCT GLU (test code = 1366184614) 368 mg/dL 70-110 H Lab Interpretation (test code = Abnormal 26829-3) [facility] (NA, K, CL, CO2, GLUCOSE, BUN, CREATININE, CA)2020-10-30 14:34:56 Test Item Value Reference Range Interpretation Comments NA (test code = 148 mmol/L 135-145 H 3950592954) K (test code = 4.1 mmol/L 3.5-5.0 2325610187) CL (test code = 122 mmol/L 98-108 H 6522063040) CO2 TOTAL (test code = 20 mmol/L 23-31 L 4845118021) AGAP (test code = 2-16 0736502748) BUN (test code = 51 mg/dL 7-23 H 4797289739) GLUCOSE (test code = 343 mg/dL 70-110 H 4206192649) CREATININE (test code = 1.43 mg/dL 0.60-1.25 H 4601101130) CALCIUM (test code = 8.1 mg/dL 8.6-10.6 L 3697829977) eGFR (test code = mL/min/1.73m2 0293491952) JUAN LUIS (test code = JUAN LUIS) [...] tests). Lab Interpretation Abnormal (test code = 85745-2) [facility] WITHOUT [id number] 14:10:28 Test Item Value Reference Range Interpretation Comments WBC (test code = See_Comment H [Automated message] 6690-2) The system [employer] generated this result transmitted ref erence range: 4.20 - 1 0.70 10*3/?L. The reference range was not used to int erpret this result as normal/abnormal . RBC (test code = 789-8) See_Comment L [Au tomated message] The system [employer] generated this result transmitted ref erence range: [...] See_Comment L [Au tomated message] The system [employer] generated this result transmitted ref erence range: 150 - 32 8 10*3/?L. The reference range was not used to int erpret this result as normal/abnormal . MPV (test code = Not Measure d 48521-4) RDW-CV (test code = 22.8 % 12.1-15.4 H 788-0) RDW-SD (test code = 60.3 fL 38.5-51.6 H 51042-8) NRBC x10^3 (test code = <0.01 See_Comment [Au tomated message] 4864986595) The system [employer] generated this result transmitted ref erence range: 10*3/?L. The reference range was not used to int erpret this result as normal/abnormal . NRBC/100 WBC (test code See_Comment [Au tomated message] = 0641960322) The system [employer] ch generated this result transmitted ref erence range: 0.0 - 10 .0 /100 WBCs. The reference range was not used to int erpret this result as normal/abnormal . IPF % (test code = 3.9 % 1.2-10.7 Platelet count 6493939681) measured by fluorescence me thod. Lab Interpretation Abnormal (test code = 62601-0) [facility] GLUCOSE (AUTOMATED)2020-10-30 12:43:30 Test Item Value Reference Range Interpretation Comments POCT GLU (test code = 5991758469) 350 mg/dL 70-110 H Lab Interpretation (test code = Abnormal 45934-6) [facility] GLUCOSE (AUTOMATED)2020-10-30 09:35:03 Test Item Value Reference Range Interpretation Comments POCT GLU (test code = 5794750382) 302 mg/dL 70-110 H Lab Interpretation (test code = Abnormal 26704-8) [facility] GLUCOSE (AUTOMATED)2020-10-30 06:24:42 Test Item Value Reference Range Interpretation Comments POCT GLU (test code = 2134384845) 280 mg/dL 70-110 H Lab Interpretation (test code = Abnormal 12117-4) [facility] WITH [id number] 06:22:16 Test Item Value Reference Range Interpretation [...] (test code = 60.6 fL 38.5-51.6 H 67882-5) RDW-CV (test code = 22.7 % 12.1-15.4 H 788-0) PLT (test code = See_Comment L [Automated 777-3) message] The sy stem which generated this result transmitted reference range : 150 - 328 10*3/ ?L. The reference r christine was not used to interpret this result as normal/abnormal . MPV (test code = 12.3 fL 9.8-13.0 33930-6) IPF % (test code = 2.3 % 1.2-10.7 Platelet count 1905020187) measured by fluorescence method. NRBC/100 WBC (test See_Comment [Automat ed code = 5904813980) message] The system which generated this result transmitted reference range : 0.0 - 10.0 /100 WBCs. The refer ence range was not u sed to interpret th is result as normal/abnormal . NRBC x10^3 (test code <0.01 See_Comment [Auto mated = 2738597246) message] The s ystem which generated this result transmitted reference range : 10*3/?L. The reference range was not used to interpret this result as normal/abnormal . GRAN MAT (NEUT) % 83.1 % (test code = 770-8) IMM GRAN % (test code 1.70 % = 3466529091) LYMPH % (test code = 7.7 % 736-9) MONO % (test code = 6.6 % 5905-5) EOS % (test code = 0.6 % 713-8) BASO % (test code = 0.3 % 706-2) GRAN MAT x10^3(ANC) 12.88 10*3/uL 1.99-6.95 H (test code = 4580852838) IMM GRAN x10^3 (test 0.26 10*3/uL 0.00-0.06 H code = 8023901644) LYMPH x10^3 (test 1.19 10*3/uL 1.09-3.23 code [...] 803-7) Lab Interpretation Abnormal (test code = 66977-5) [facility] Heparin Drip)2020-10-30 05:58:19 Test Item Value Reference Range Interpretation Comments APTT Patient (test code See_Comment H [Au tomated message] = 3173-2) The system [employer] generated this result transmitted ref erence range: 26 - 36 Seconds. The reference range was not used to int erpret this result as normal/abnormal . Lab Interpretation (test Abnormal code = 98077-7) [facility] (NA, K, CL, CO2, GLUCOSE, BUN, CREATININE, CA)2020-10-30 05:54:18 Test Item Value Reference Range Interpretation Comments NA (test code = 150 mmol/L 135-145 H 7737115208) K (test code = 3.8 mmol/L 3.5-5.0 4911337760) CL (test code = 122 mmol/L 98-108 H 8974752159) CO2 TOTAL (test code = 20 mmol/L 23-31 L 0199706431) AGAP (test code = 2-16 0177023191) BUN (test code = 49 mg/dL 7-23 H 7087186886) GLUCOSE (test code = 261 mg/dL 70-110 H 5583660343) CREATININE (test code = 1.40 mg/dL 0.60-1.25 H 5529416071) CALCIUM (test code = 8.2 mg/dL 8.6-10.6 L 1760370439) eGFR (test code = mL/min/1.73m2 0846883029) JUAN LUIS (test code = JUAN LUIS) [...] tests). Lab Interpretation Abnormal (test code = 78533-1) [facility] Test Item Value Reference Range Interpretation Comments MAGNESIUM (test code = 3724128577) 2.5 mg/dL 1.7-2.4 H Lab Interpretation (test code = Abnormal 54195-2) [facility] GLUCOSE (AUTOMATED)2020-10-30 03:26:07 Test Item Value Reference Range Interpretation Comments POCT GLU (test code = 6684948323) 246 mg/dL 70-110 H Lab Interpretation (test code = Abnormal 31491-8) [facility] GLUCOSE (AUTOMATED)2020-10-30 00:46:09 Test Item Value Reference Range Interpretation Comments POCT GLU (test code = 9578855143) 238 mg/dL 70-110 H Lab Interpretation (test code = Abnormal 94922-0) [facility] use with Heparin Drip)2020-10-29 23:13:49 Test Item Value Reference Range Interpretation Comments APTT Patient (test code See_Comment H [Au tomated message] = 3173-2) The system [employer] generated this result transmitted ref erence range: 26 - 36 Seconds. The reference range was not used to int erpret this result as normal/abnormal . Lab Interpretation (test Abnormal code = 75250-5) [facility]2020-10-29 22:25:56 Test Item Value Reference Range Interpretation Comments POCT GLU (test code = 9522576713) 243 mg/dL 70-110 H Lab Interpretation (test code = Abnormal 81913-5) [facility]2021-[facility]-17 20:59:19 Test Item Value Reference Range Interpretation Comments MAGNESIUM (test code = 4921024881) 2.4 mg/dL 1.7-2.4 Lab Interpretation (test code = Normal 55874-3) [facility]OLIC PAN[facility] (NA, K, CL, CO2, GLUCOSE, BUN, CREATININE, CA)2020-10-29 20:41:28 Test Item Value Reference Range Interpretation Comments NA (test code = 150 mmol/L 135-145 H 8910381891) K (test code = 4.0 mmol/L 3.5-5.0 7074970506) CL (test code = 123 mmol/L 98-108 H 1333751039) CO2 TOTAL (test code = 19 mmol/L 23-31 L 9679765782) AGAP (test code = 2-16 1146448973) BUN (test code = 49 mg/dL 7-23 H 3890964403) GLUCOSE (test code = 197 mg/dL 70-110 H 1027953725) CREATININE (test code = 1.35 mg/dL 0.60-1.25 H 2188888510) CALCIUM (test code = 8.6 mg/dL 8.6-10.6 5703459406) eGFR (test code = mL/min/1.73m2 6819508715) JUAN LUIS (test code = JUAN LUIS) [...] tests). Lab Interpretation Abnormal (test code = 87583-4) [facility] GLUCOSE (AUTOMATED)2020-10-29 19:13:21 Test Item Value Reference Range Interpretation Comments POCT GLU (test code = 6282501566) 196 mg/dL 70-110 H Lab Interpretation (test code = Abnormal 96609-0) [facility] GLUCOSE (AUTOMATED)2020-10-29 16:28:35 Test Item Value Reference Range Interpretation Comments POCT GLU (test code = 5438696378) 192 mg/dL 70-110 H Lab Interpretation (test code = Abnormal 31856-2) [facility]MR[facility] / MSSA Screen by Britney [id number] 16:25:18 Test Item Value Reference Range Interpretation Comments MSSA Screen by Britney MTZ (test code Negative Negative = 01307-2) MRSA/MSSA Positive? (test code = No No 1725141302) Lab Interpretation (test code = Normal 10259-7) [facility] MSSA Screen by PCR, [id number] 16:25:18 Test Item Value Reference Range Interpretation Comments MSSA Screen by PCR, Nares (test code Negative Negative = 59655-2) MRSA/MSSA Positive? (test code = No No 6644201085) Lab Interpretation (test code = Normal 85188-6) [facility] MSSA Screen by PCR, [id number] 16:25:18 Test Item Value Reference Range Interpretation Comments MSSA Screen by PCR, Nares (test code Negative Negative = 77162-8) MRSA/MSSA Positive? (test code = No No 9323282888) Lab Interpretation (test code = Normal 45224-8) [facility] [id number] 16:18:19 Test Item Value Reference Range Interpretation Comments TROPONIN I (test 0.397 ng/mL See_Comment H [Automated code = 0899829483) message] The system which generated this result [...] ? Lab Interpretation Abnormal (test code = 25266-8) [facility] [id number] 16:18:19 Test Item Value Reference Range Interpretation Comments TROPONIN I (test 0.397 ng/mL See_Comment H [Automated code = 9662360605) message] The system which generated this result [...] ? Lab Interpretation Abnormal (test code = 82438-8) [facility] [id number] 16:18:19 Test Item Value Reference Range Interpretation Comments TROPONIN I (test 0.397 ng/mL See_Comment H [Automated code = 5342505131) message] The system which generated this result [...] ? Lab Interpretation Abnormal (test code = 12759-0) [facility] (NA, K, CL, CO2, GLUCOSE, BUN, CREATININE, CA)2020-10-29 16:17:03 Test Item Value Reference Range Interpretation Comments NA (test code = 152 mmol/L 135-145 H 8016442298) K (test code = 4.2 mmol/L 3.5-5.0 7463424345) CL (test code = 124 mmol/L 98-108 H 3842629275) CO2 TOTAL (test code = 21 mmol/L 23-31 L 4883749353) AGAP (test code = 2-16 4761219286) BUN (test code = 49 mg/dL 7-23 H 4751645325) GLUCOSE (test code = 173 mg/dL 70-110 H 2384229521) CREATININE (test code = 1.34 mg/dL 0.60-1.25 H 7706392851) CALCIUM (test code = 8.8 mg/dL 8.6-10.6 5815397529) eGFR (test code = mL/min/1.73m2 2252653741) JUAN LUIS (test code = JUAN LUIS) [...] tests). Lab Interpretation Abnormal (test code = 23857-7) [facility]2021-[facility]17 15:37:55 Test Item Value Reference Range Interpretation Comments APTT Patient (test code See_Comment L [Au tomated message] = 3173-2) The system [employer] generated this result transmitted ref erence range: 26 - 36 Seconds. The reference range was not used to int erpret this result as normal/abnormal . Lab Interpretation (test Abnormal code = 99761-7) [facility] HospitalURINE [id number] 14:00:01 Test Item Value Reference Range Interpretation Comments URINE CULTURE (test No aerobic growth (< code = 630-4) 1000 CFU/mL) [facility])2020-10-29 12:55:31 Test Item Value Reference Range Interpretation Comments POCT GLU (test code = 2955108677) 185 mg/dL 70-110 H Lab Interpretation (test code = Abnormal 30007-7) [facility] HospitalXR BONE [id number] 11:47:44 Metallic linear foreign body over the [...] left ring finger metacarpalconsidered safe for MR imaging.[facility]XR BONE [id number] 11:47:44 Metallic linear foreign body over the [...] left ring finger metacarpalconsidered safe for MR imaging.[facility]XR BONE [id number] 11:47:44 Metallic linear foreign body over the [...] left ring finger metacarpalconsidered safe for MR imaging.[facility] HospitalBRADY [id number] 08:59:20 Test Item Value Reference Range Interpretation Comments TROPONIN I (test 0.426 ng/mL See_Comment H [Automated code = 1875493159) message] The system which generated this result [...] ? Lab Interpretation Abnormal (test code = 37401-1) [facility] WITH [id number] 08:54:03 Test Item Value Reference Range Interpretation [...] (test code = 59.0 fL 38.5-51.6 H 89223-0) RDW-CV (test code = 22.5 % 12.1-15.4 H 788-0) PLT (test code = See_Comment L [Automated 777-3) message] The sy stem which generated this result transmitted reference range : 150 - 328 10*3/ ?L. The reference r christine was not used to interpret this result as normal/abnormal . MPV (test code = 11.2 fL 9.8-13.0 14508-5) IPF % (test code = 2.4 % 1.2-10.7 Platelet count 8079474225) measured by fluorescence method. NRBC/100 WBC (test See_Comment [Automat ed code = 7006277482) message] The system which generated this result transmitted reference range : 0.0 - 10.0 /100 WBCs. The refer ence range was not u sed to interpret th is result as normal/abnormal . NRBC x10^3 (test code <0.01 See_Comment [Auto mated = 4404544345) message] The s ystem which generated this result transmitted reference range : 10*3/?L. The reference range was not used to interpret this result as normal/abnormal . GRAN MAT (NEUT) % 76.4 % (test code = 770-8) IMM GRAN % (test code 3.00 % = 0417595320) LYMPH % (test code = 10.3 % 736-9) MONO % (test code = 9.1 % 5905-5) EOS % (test code = 0.8 % 713-8) BASO % (test code = 0.4 % 706-2) GRAN MAT x10^3(ANC) 9.02 10*3/uL 1.99-6.95 H (test code = 2441539246) IMM GRAN x10^3 (test 0.36 10*3/uL 0.00-0.06 H code = 6747613263) LYMPH x10^3 (test code 1.22 10*3/uL 1.09-3.23 = 731-0) MONO x10^3 (test code 1.08 10*3/uL 0.36-1.02 H = 742-7) EOS x10^3 (test code = 0.10 10*3/uL 0.06-0.53 711-2) BASO x10^3 (test code 0.05 10*3/uL 0.01-0.09 = 704-7) SCHISTOCYTES (test 1+ A code = 800-3) Lab Interpretation Abnormal (test code = 84807-0) [facility] METABOLIC PANEL (NA, K, CL, CO2, GLUCOSE, BUN, CREATININE, CA)2020-10-29 08:46:24 Test Item Value Reference Range Interpretation Comments NA (test code = 155 mmol/L 135-145 H 1464263609) K (test code = 4.4 mmol/L 3.5-5.0 0148661924) CL (test code = 126 mmol/L 98-108 H 1529952432) CO2 TOTAL (test code = 22 mmol/L 23-31 L 0742680335) AGAP (test code = 2-16 0490604980) BUN (test code = 50 mg/dL 7-23 H 6450305226) GLUCOSE (test code = 177 mg/dL 70-110 H 3287654181) CREATININE (test code = 1.29 mg/dL 0.60-1.25 H 4434537049) CALCIUM (test code = 8.6 mg/dL 8.6-10.6 8862190592) eGFR (test code = mL/min/1.73m2 7479107338) JUAN LUIS (test code = JUAN LUIS) [...] tests). Lab Interpretation Abnormal (test code = 69931-2) [facility])2020-10-29 07:10:56 Test Item Value Reference Range Interpretation Comments POCT GLU (test code = 4359961476) 175 mg/dL 70-110 H Lab Interpretation (test code = Abnormal 94271-7) [facility] HospitalTROP[facility] [id number] 04:16:10 Test Item Value Reference Range Interpretation Comments TROPONIN I (test 0.454 ng/mL See_Comment H [Automated code = 6597631760) message] The system which generated this result [...] ? Lab Interpretation Abnormal (test code = 80162-9) [facility] WITH [id number] 04:14:28 Test Item Value Reference Range Interpretation [...] (test code = 57.0 fL 38.5-51.6 H 24687-2) RDW-CV (test code = 22.1 % 12.1-15.4 H 788-0) PLT (test code = See_Comment L [Automated 777-3) message] The sy stem which generated this result transmitted reference range : 150 - 328 10*3/ ?L. The reference r christine was not used to interpret this result as normal/abnormal . MPV (test code = Not Measure d 75666-6) IPF % (test code = 2.1 % 1.2-10.7 Platelet count 4509190106) measured by fluorescence method. NRBC/100 WBC (test See_Comment [Automat ed code = 1796446613) message] The system which generated this result transmitted reference range : 0.0 - 10.0 /100 WBCs. The refer ence range was not u sed to interpret th is result as normal/abnormal . NRBC x10^3 (test code <0.01 See_Comment [Auto mated = 0387606206) message] The s ystem which generated this result transmitted reference range : 10*3/?L. The reference range was not used to interpret this result as normal/abnormal . GRAN MAT (NEUT) % 74.8 % (test code = 770-8) IMM GRAN % (test code 2.80 % = 1450942041) LYMPH % (test code = 10.9 % 736-9) MONO % (test code = 10.4 % 5905-5) EOS % (test code = 0.7 % 713-8) BASO % (test code = 0.4 % 706-2) GRAN MAT x10^3(ANC) 8.42 10*3/uL 1.99-6.95 H (test code = 4883277094) IMM GRAN x10^3 (test 0.31 10*3/uL 0.00-0.06 H code = 1149029687) LYMPH x10^3 (test code 1.23 10*3/uL 1.09-3.23 = 731-0) MONO x10^3 (test code 1.17 10*3/uL 0.36-1.02 H = 742-7) EOS x10^3 (test code = 0.08 10*3/uL 0.06-0.53 711-2) BASO x10^3 (test code 0.04 10*3/uL 0.01-0.09 = 704-7) BASO STIPPLING (test Present A code = 703-9) SCHISTOCYTES (test 1+ A code = 800-3) Lab Interpretation Abnormal (test code = 28206-4) [facility] METABOLIC PANEL (NA, K, CL, CO2, GLUCOSE, BUN, CREATININE, CA)2020-10-29 04:00:13 Test Item Value Reference Range Interpretation Comments NA (test code = 154 mmol/L 135-145 H 9358586932) K (test code = 3.0 mmol/L 3.5-5.0 L 4079412105) CL (test code = 125 mmol/L 98-108 H 7524374194) CO2 TOTAL (test code = 20 mmol/L 23-31 L 3125373969) AGAP (test code = 2-16 7689591794) BUN (test code = 50 mg/dL 7-23 H 8654867014) GLUCOSE (test code = 144 mg/dL 70-110 H 1138081085) CREATININE (test code = 1.36 mg/dL 0.60-1.25 H 2427878062) CALCIUM (test code = 8.8 mg/dL 8.6-10.6 2383295696) eGFR (test code = mL/min/1.73m2 4865707393) JUAN LUIS (test code = JUAN LUIS) [...] tests). Lab Interpretation Abnormal (test code = 47557-8) [facility] 03:58:47 Test Item Value Reference Range Interpretation Comments MAGNESIUM (test code = 0995427101) 2.5 mg/dL 1.7-2.4 H Lab Interpretation (test code = Abnormal 17044-0) [facility]2020-10-29 03:58:47 Test Item Value Reference Range Interpretation Comments POCT GLU (test code = 5776945160) 134 mg/dL 70-110 H Lab Interpretation (test code = Abnormal 44043-0) [facility]2021-[facility]-17 03:39:08 Test Item Value Reference Range Interpretation Comments Fibrinogen (test code = 7877773342) 441 mg/dL 167-453 Lab Interpretation (test code = Normal 64242-3) [facility]2021-04-17 03:39:08 Test Item Value Reference Range Interpretation Comments Fibrinogen (test code = 7671538177) 441 mg/dL 167-453 Lab Interpretation (test code = Normal 13779-0) [facility] HospitalPROTHROMBIN TIME / [id number] 03:39:08 Test Item Value Reference Range Interpretation [...] tions. Lab Interpretation (test Abnormal code = 53349-7) [facility]21-[facility]-17 03:39:08 Test Item Value Reference Range Interpretation Comments Fibrinogen (test code = 2758809073) 441 mg/dL 167-453 Lab Interpretation (test code = Normal 03622-0) [facility] + LACTIC [id number] 03:20:11 Test Item Value Reference Range Interpretation Comments PH (test code = 2) 7.35-7.45 H PCO2 (test code = See_Comment L [Automat ed 9466480123) message] The sy stem which generated this result transmitted reference range : 35 - 45 mmHg. The reference range was not used to interpret this result as normal/abnormal . PO2 (test code = See_Comment H [Automated 0171319285) message] The sy stem which generated this result transmitted reference range : 80 - 100 mmHg. The reference range was not used to interpret this result as normal/abnormal . HCO3 (test code = See_Comment [Automate d 6380906596) message] The sy stem which generated this result transmitted reference range : 22 - 26 mEq/L. The reference range was not used to interpret this result as normal/abnormal . BE (test code = See_Comment [Automated 7786615996) message] The sy stem which generated this result transmitted reference range : -3.0 - 3.0 mEq/ L. The reference r christine was not used to interpret this result as normal/abnormal . THB (test code = 9.3 g/dL 13.5-18.0 L 3983835660) %O2HB (test code = 97.5 % 94.0-99.0 3498628890) %COHB ART (test code = 0.3 % 0.0-1.5 4676801238) %METHB ART (test code = 0.3 % 0.4-1.5 L 8960117162) VOL%O2 ART (test code = 12.9 % 15.0-23.0 L 7139944605) NA (test code = 152 mmol/L 135-145 H 1966370609) K+ (test code = 3.0 mmol/L 3.5-5.0 L 5618125186) AC CA IONZ (test code = 5.00 mg/dL 4.50-5.30 3371104003) GLUCOSE (test code = 142 mg/dL 70-110 H 5987992745) LACTIC ACID (test code 1.59 mmol/L 0.50-2.20 = 9177551084) Lab Interpretation Abnormal (test code = 15576-7) [facility] + LACTIC [id number] 03:20:11 Test Item Value Reference Range Interpretation Comments PH (test code = 2) 7.35-7.45 H PCO2 (test code = See_Comment L [Automat ed 3163052466) message] The sy stem which generated this result transmitted reference range : 35 - 45 mmHg. The reference range was not used to interpret this result as normal/abnormal . PO2 (test code = See_Comment H [Automated 9435218077) message] The sy stem which generated this result transmitted reference range : 80 - 100 mmHg. The reference range was not used to interpret this result as normal/abnormal . HCO3 (test code = See_Comment [Automate d 3559257381) message] The sy stem which generated this result transmitted reference range : 22 - 26 mEq/L. The reference range was not used to interpret this result as normal/abnormal . BE (test code = See_Comment [Automated 8245879873) message] The sy stem which generated this result transmitted reference range : -3.0 - 3.0 mEq/ L. The reference r christine was not used to interpret this result as normal/abnormal . THB (test code = 9.3 g/dL 13.5-18.0 L 7145568770) %O2HB (test code = 97.5 % 94.0-99.0 6732557910) %COHB ART (test code = 0.3 % 0.0-1.5 8970221384) %METHB ART (test code = 0.3 % 0.4-1.5 L 5104624076) VOL%O2 ART (test code = 12.9 % 15.0-23.0 L 5985345455) NA (test code = 152 mmol/L 135-145 H 3693665426) K+ (test code = 3.0 mmol/L 3.5-5.0 L 0032339698) AC CA IONZ (test code = 5.00 mg/dL 4.50-5.30 3347802506) GLUCOSE (test code = 142 mg/dL 70-110 H 4336138987) LACTIC ACID (test code 1.59 mmol/L 0.50-2.20 = 3158055938) Lab Interpretation Abnormal (test code = 01891-9) [facility] + LACTIC [id number] 03:20:11 Test Item Value Reference Range Interpretation Comments PH (test code = 2) 7.35-7.45 H PCO2 (test code = See_Comment L [Automat ed 1516811954) message] The sy stem which generated this result transmitted reference range : 35 - 45 mmHg. The reference range was not used to interpret this result as normal/abnormal . PO2 (test code = See_Comment H [Automated 9920799073) message] The sy stem which generated this result transmitted reference range : 80 - 100 mmHg. The reference range was not used to interpret this result as normal/abnormal . HCO3 (test code = See_Comment [Automate d 7031024421) message] The sy stem which generated this result transmitted reference range : 22 - 26 mEq/L. The reference range was not used to interpret this result as normal/abnormal . BE (test code = See_Comment [Automated 6568669078) message] The sy stem which generated this result transmitted reference range : -3.0 - 3.0 mEq/ L. The reference r christine was not used to interpret this result as normal/abnormal . THB (test code = 9.3 g/dL 13.5-18.0 L 0316736387) %O2HB (test code = 97.5 % 94.0-99.0 7235919510) %COHB ART (test code = 0.3 % 0.0-1.5 1214350490) %METHB ART (test code = 0.3 % 0.4-1.5 L 1915413863) VOL%O2 ART (test code = 12.9 % 15.0-23.0 L 8725967994) NA (test code = 152 mmol/L 135-145 H 6820577429) K+ (test code = 3.0 mmol/L 3.5-5.0 L 6120196853) AC CA IONZ (test code = 5.00 mg/dL 4.50-5.30 3550011542) GLUCOSE (test code = 142 mg/dL 70-110 H 9866151369) LACTIC ACID (test code 1.59 mmol/L 0.50-2.20 = 3591417936) Lab Interpretation Abnormal (test code = 20956-0) [facility] [id number] 03:20:06 No acute intracranial hemorrhage or mass [...] reviewed this study and agree with theabove report.[facility] [id number] 03:20:06 No acute intracranial hemorrhage or mass [...] reviewed this study and agree with theabove report.[facility] [id number] 03:20:06 No acute intracranial hemorrhage or mass [...] air cells. A nasogastric tube ispartially visualized. [facility], Radiant Results Inft User - 10/28/2020 10:21 [...] mass effect.Preliminary Report Dictated by Resident: William Sawyer, MD., have reviewed this study and agree with theabove report.[facility] GLUCOSE (AUTOMATED) 2020-10-29 01:10:09 Test Item Value Reference Range Interpretation Comments POCT GLU (test code = 0258045636) 178 mg/dL 70-110 H Lab Interpretation (test code = Abnormal 26540-7) [facility] GLUCOSE (AUTOMATED)2020-10-28 21:43:56 Test Item Value Reference Range Interpretation Comments POCT GLU (test code = 4472138164) 131 mg/dL 70-110 H Lab Interpretation (test code = Abnormal 14804-1) [facility] GLUCOSE (AUTOMATED)2020-10-28 16:37:06 Test Item Value Reference Range Interpretation Comments POCT GLU (test code = 1094849443) 345 mg/dL 70-110 H Lab Interpretation (test code = Abnormal 39142-1) [facility] 1 [id number] 15:26:11EXAM: XR CHEST 1 VW HISTORY: COUGH [...] tube passes through the thorax and into thestomach.[facility] + LACTIC [id number] 13:57:21 Test Item Value Reference Range Interpretation Comments PH (test code = 2) 7.35-7.45 H PCO2 (test code = See_Comment L [Automat ed 5606611606) message] The sy stem which generated this result transmitted reference range : 35 - 45 mmHg. The reference range was not used to interpret this result as normal/abnormal . PO2 (test code = See_Comment L [Automated 0786378158) message] The sy stem which generated this result transmitted reference range : 80 - 100 mmHg. The reference range was not used to interpret this result as normal/abnormal . HCO3 (test code = See_Comment L [Automate d 6696426891) message] The sy stem which generated this result transmitted reference range : 22 - 26 mEq/L. The reference range was not used to interpret this result as normal/abnormal . BE (test code = See_Comment L [Automated 7255115505) message] The sy stem which generated this result transmitted reference range : -3.0 - 3.0 mEq/ L. The reference r christine was not used to interpret this result as normal/abnormal . THB (test code = 10.2 g/dL 13.5-18.0 L 8084413700) %O2HB (test code = 89.8 % 94.0-99.0 L 9365518304) %COHB ART (test code = 0.3 % 0.0-1.5 5542309146) %METHB ART (test code = 0.3 % 0.4-1.5 L 3509768582) VOL%O2 ART (test code = 12.9 % 15.0-23.0 L 0202516396) NA (test code = 151 mmol/L 135-145 H 9391685781) K+ (test code = 3.7 mmol/L 3.5-5.0 0301233410) AC CA IONZ (test code = 5.10 mg/dL 4.50-5.30 7636156076) GLUCOSE (test code = 359 mg/dL 70-110 H 2949726687) LACTIC ACID (test code 1.43 mmol/L 0.50-2.20 = 7790409900) Lab Interpretation Abnormal (test code = 64872-3) [facility] GLUCOSE (AUTOMATED)2020-10-28 13:45:52 Test Item Value Reference Range Interpretation Comments POCT GLU (test code = 0524060569) 355 mg/dL 70-110 H Lab Interpretation (test code = Abnormal 88595-8) [facility] GLUCOSE (AUTOMATED)2020-10-28 13:18:15 Test Item Value Reference Range Interpretation Comments POCT GLU (test code = 5617254221) 322 mg/dL 70-110 H Lab Interpretation (test code = Abnormal 21422-7) [facility]2020-10-28 10:42:20 Test Item Value Reference Range Interpretation Comments POCT GLU (test code = 7883006838) 303 mg/dL 70-110 H Lab Interpretation (test code = Abnormal 30394-7) [facility] [id number] 08:53:59 Test Item Value Reference Range Interpretation Comments TROPONIN I (test 0.352 ng/mL See_Comment H [Automated code = 3446689961) message] The system which generated this result [...] ? Lab Interpretation Abnormal (test code = 71574-0) [facility]OLIC PAN[facility] (NA, K, CL, CO2, GLUCOSE, BUN, CREATININE, CA)2020-10-28 08:42:28 Test Item Value Reference Range Interpretation Comments NA (test code = 151 mmol/L 135-145 H 0092970753) K (test code = 3.6 mmol/L 3.5-5.0 6619383700) CL (test code = 125 mmol/L 98-108 H 3813441214) CO2 TOTAL (test code = 20 mmol/L 23-31 L 0510031602) AGAP (test code = 2-16 7876354873) BUN (test code = 50 mg/dL 7-23 H 0339705672) GLUCOSE (test code = 303 mg/dL 70-110 H 6139636281) CREATININE (test code = 1.25 mg/dL 0.60-1.25 3021249033) CALCIUM (test code = 9.1 mg/dL 8.6-10.6 2687064388) eGFR (test code = mL/min/1.73m2 7860456400) JUAN LUIS (test code = JUAN LUIS) [...] tests). Lab Interpretation Abnormal (test code = 19265-8) [facility] WITHOUT [id number] 08:18:28 Test Item Value Reference Range Interpretation Comments WBC (test code = See_Comment [Automated message] 6690-2) The system [facility] generated this result transmitted ref erence range: 4.20 - 1 0.70 10*3/?L. The reference range was not used to int erpret this result as normal/abnormal . RBC (test code = 789-8) See_Comment L [Au tomated message] The system [facility] generated this result transmitted ref erence range: [...] 777-3) See_Comment [Au tomated message] The system [facility] generated this result transmitted ref erence range: 150 - 32 8 10*3/?L. The reference range was not used to int erpret this result as normal/abnormal . MPV (test code = 12.0 fL 9.8-13.0 94191-1) RDW-CV (test code = 22.0 % 12.1-15.4 H 788-0) RDW-SD (test code = 56.7 fL 38.5-51.6 H 52490-0) NRBC x10^3 (test code = <0.01 See_Comment [Au tomated message] 2769447642) The system [facility] generated this result transmitted ref erence range: 10*3/?L. The reference range was not used to int erpret this result as normal/abnormal . NRBC/100 WBC (test code See_Comment [Au tomated message] = 9260869239) The system [facility] generated this result transmitted ref erence range: 0.0 - 10 .0 /100 WBCs. The reference range was not used to int erpret this result as normal/abnormal . IPF % (test code = 1.6 % 1.2-10.7 Platelet count 0230950940) measured by fluorescence me thod. Lab Interpretation Abnormal (test code = 37219-9) [facility] GLUCOSE (AUTOMATED)2020-10-28 07:38:54 Test Item Value Reference Range Interpretation Comments POCT GLU (test code = 4582044929) 302 mg/dL 70-110 H Lab Interpretation (test code = Abnormal 39410-6) [facility] GLUCOSE (AUTOMATED)2020-10-28 04:16:52 Test Item Value Reference Range Interpretation Comments POCT GLU (test code = 5087108127) 306 mg/dL 70-110 H Lab Interpretation (test code = Abnormal 59734-7) [facility] CULTURE [id number] 03:01:27 Test Item Value Reference Range Interpretation Comments Blood Culture-Aerobic No organisms No growth Previo us (test code = 72041-1) isolated prelim inary verified result was Culture [...] Culture-Anaerobic isolated preliminar y (test code = 48521-7) verifi ed result was Culture In Progress [...] CDT Lab Interpretation Normal (test code = 09787-4) [facility] CULTURE [id number] 03:01:27 Test Item Value Reference Range Interpretation Comments Blood Culture-Aerobic No organisms No growth Previo us (test code = 35979-9) isolated prelim inary verified result was Culture [...] Culture-Anaerobic isolated preliminar y (test code = 89140-3) verifi ed result was Culture In Progress [...] CDT Lab Interpretation Normal (test code = 03044-2) [facility] [id number] 02:04:19 Test Item Value Reference Range Interpretation Comments TROPONIN I (test 0.236 ng/mL See_Comment H [Automated code = 2686625818) message] The system which generated this result [...] ? Lab Interpretation Abnormal (test code = 93447-3) [facility] GLUCOSE (AUTOMATED)2020-10-28 01:29:26 Test Item Value Reference Range Interpretation Comments POCT GLU (test code = 5324273904) 262 mg/dL 70-110 H Lab Interpretation (test code = Abnormal 17434-6) [facility] METABOLIC PANEL (NA, K, CL, CO2, GLUCOSE, BUN, CREATININE, CA)2020-10-27 22:22:07 Test Item Value Reference Range Interpretation Comments NA (test code = 151 mmol/L 135-145 H 1015181047) K (test code = 3.2 mmol/L 3.5-5.0 L 0264672158) CL (test code = 124 mmol/L 98-108 H 3009824300) CO2 TOTAL (test code = 20 mmol/L 23-31 L 3319781687) AGAP (test code = 2-16 7821450475) BUN (test code = 49 mg/dL 7-23 H 3186654302) GLUCOSE (test code = 271 mg/dL 70-110 H 8728145573) CREATININE (test code = 1.24 mg/dL 0.60-1.25 2670446174) CALCIUM (test code = 8.7 mg/dL 8.6-10.6 9322498745) eGFR (test code = mL/min/1.73m2 9782960104) JUAN LUIS (test code = JUAN LUIS) [...] tests). Lab Interpretation Abnormal (test code = 30475-5) [facility] GLUCOSE (AUTOMATED)2020-10-27 21:31:54 Test Item Value Reference Range Interpretation Comments POCT GLU (test code = 0727105715) 308 mg/dL 70-110 H Lab Interpretation (test code = Abnormal 28136-9) [facility] GLUCOSE (AUTOMATED)2020-10-27 19:14:20 Test Item Value Reference Range Interpretation Comments POCT GLU (test code = 7003902732) 281 mg/dL 70-110 H Lab Interpretation (test code = Abnormal 67104-4) [facility] GLUCOSE (AUTOMATED)2020-10-27 16:11:09 Test Item Value Reference Range Interpretation Comments POCT GLU (test code = 7514802936) 278 mg/dL 70-110 H Lab Interpretation (test code = Abnormal 48775-3) [facility] - To confirm Dobhoff [...] of the abdomen and pelvis were obtained. [facility], Radiant Results Inft User - 10/27/2020 10:25 [...] reviewed this study and agree with theabove report.[facility] Abdominal 1 View - To confirm [...] of the abdomen and pelvis were obtained. [facility], Radiant Results Inft User - 10/27/2020 10:25 [...] reviewed this study and agree with theabove report.[facility] - To confirm Dobhoff [...] reviewed this study and agree with theabove report.[facility] WITH [id number] 14:56:09 Test Item Value Reference Range Interpretation [...] (test code = 59.0 fL 38.5-51.6 H 59304-2) RDW-CV (test code = 21.9 % 12.1-15.4 H 788-0) PLT (test code = See_Comment [Automated 777-3) message] The sy stem which generated this result transmitted reference range : 150 - 328 10*3/ ?L. The reference r christine was not used to interpret this result as normal/abnormal . MPV (test code = 11.7 fL 9.8-13.0 56804-9) IPF % (test code = 2.6 % 1.2-10.7 Platelet count 3355170275) measured by fluorescence method. NRBC/100 WBC (test See_Comment [Automat ed code = 7703175304) message] The system which generated this result transmitted reference range : 0.0 - 10.0 /100 WBCs. The refer ence range was not u sed to interpret th is result as normal/abnormal . NRBC x10^3 (test code <0.01 See_Comment [Auto mated = 3478444066) message] The s ystem which generated this result transmitted reference range : 10*3/?L. The reference range was not used to interpret this result as normal/abnormal . GRAN MAT (NEUT) % 73.4 % (test code = 770-8) IMM GRAN % (test code 4.90 % = 7830032771) LYMPH % (test code = 6.7 % 736-9) MONO % (test code = 14.3 % 5905-5) EOS % (test code = 0.4 % 713-8) BASO % (test code = 0.3 % 706-2) GRAN MAT x10^3(ANC) 8.45 10*3/uL 1.99-6.95 H (test code = 1047106906) IMM GRAN x10^3 (test 0.57 10*3/uL 0.00-0.06 H code = 9311577602) LYMPH x10^3 (test code 0.77 10*3/uL 1.09-3.23 L = 731-0) MONO x10^3 (test code 1.65 10*3/uL 0.36-1.02 H = 742-7) EOS x10^3 (test code = 0.05 10*3/uL 0.06-0.53 L 711-2) BASO x10^3 (test code 0.04 10*3/uL 0.01-0.09 = 704-7) YVES CELLS (test code 2+ See_Comment A [Auto mated = 8409-0) message] The sy stem which generated this result transmitted reference range : (none). The reference range was not used to interpret this result as normal/abnormal . SCHISTOCYTES (test 1+ A code = 800-3) Lab Interpretation Abnormal (test code = 61415-5) [facility]2020-10-27 12:58:08 Test Item Value Reference Range Interpretation Comments POCT GLU (test code = 2978451837) 381 mg/dL 70-110 H Lab Interpretation (test code = Abnormal 09685-5) [facility] [id number] 11:41:52 Test Item Value Reference Range Interpretation Comments TROPONIN I (test 0.229 ng/mL See_Comment H [Automated code = 8693608710) message] The system which generated this result [...] ? Lab Interpretation Abnormal (test code = 09893-6) [facility] (NA, K, CL, CO2, GLUCOSE, BUN, CREATININE, CA)2020-10-27 11:41:31 Test Item Value Reference Range Interpretation Comments NA (test code = 149 mmol/L 135-145 H 8422601395) K (test code = 4.2 mmol/L 3.5-5.0 Slight 6045843173) hemolysis CL (test code = 122 mmol/L 98-108 H 8086832736) CO2 TOTAL (test code 17 mmol/L 23-31 L = 7545674867) AGAP (test code = 2-16 5544044004) BUN (test code = 52 mg/dL 7-23 H Slight 9427662250) hemolysis GLUCOSE (test code = 346 mg/dL 70-110 H 3080734319) CREATININE (test code 1.21 mg/dL 0.60-1.25 = 6250082226) CALCIUM (test code = 8.5 mg/dL 8.6-10.6 L 2679722305) eGFR (test code = mL/min/1.73m2 7855027733) JUAN LUIS (test code = JUAN LUIS) [...] tests). Lab Interpretation Abnormal (test code = 54432-6) [facility] [id number] 05:53:41 Test Item Value Reference Range Interpretation Comments TROPONIN I (test 0.163 ng/mL See_Comment H [Automated code = 6318561470) message] The system which generated this result [...] ? Lab Interpretation Abnormal (test code = 74687-9) [facility] (NA, K, CL, CO2, GLUCOSE, BUN, CREATININE, CA)2020-10-27 05:39:56 Test Item Value Reference Range Interpretation Comments NA (test code = 152 mmol/L 135-145 H 5288690042) K (test code = 3.9 mmol/L 3.5-5.0 9257575643) CL (test code = 123 mmol/L 98-108 H 1756539881) CO2 TOTAL (test code = 13 mmol/L 23-31 L 6991546537) AGAP (test code = 2-16 1119385710) BUN (test code = 52 mg/dL 7-23 H 2169394437) GLUCOSE (test code = 284 mg/dL 70-110 H 7449164787) CREATININE (test code = 1.31 mg/dL 0.60-1.25 H 7457882751) CALCIUM (test code = 8.6 mg/dL 8.6-10.6 3109783947) eGFR (test code = mL/min/1.73m2 4724537152) JUAN LUIS (test code = JUAN LUIS) [...] tests). Lab Interpretation Abnormal (test code = 15557-8) [facility]2020-10-27 03:12:41 Test Item Value Reference Range Interpretation Comments POCT GLU (test code = 1807801615) 253 mg/dL 70-110 H Lab Interpretation (test code = Abnormal 05519-3) [facility] (NA, K, CL, CO2, GLUCOSE, BUN, CREATININE, CA)2020-10-26 23:37:44 Test Item Value Reference Range Interpretation Comments NA (test code = 152 mmol/L 135-145 H 3173890133) K (test code = 4.1 mmol/L 3.5-5.0 3141319037) CL (test code = 123 mmol/L 98-108 H 7487142657) CO2 TOTAL (test code = 11 mmol/L 23-31 L 8968220725) AGAP (test code = 2-16 H 1518803790) BUN (test code = 54 mg/dL 7-23 H 1413196361) GLUCOSE (test code = 193 mg/dL 70-110 H 5008719567) CREATININE (test code = 1.41 mg/dL 0.60-1.25 H 2936795281) CALCIUM (test code = 9.1 mg/dL 8.6-10.6 2519715101) eGFR (test code = mL/min/1.73m2 7780969590) JUAN LUIS (test code = JUAN LUIS) [...] tests). Lab Interpretation Abnormal (test code = 20820-3) [facility]2020-10-26 21:41:08 Test Item Value Reference Range Interpretation Comments POCT GLU (test code = 9618979334) 204 mg/dL 70-110 H Lab Interpretation (test code = Abnormal 07898-7) [facility] [id number] 17:26:11 1. ?Multifocal mixed attenuation opacities and [...] TECHNIQUE: CT examination acquisition dated 10/22/2020 from [facility], labeled with the patients name, was submitted [...] arthroplasty. [facility], Radiant Results Inft User - 10/26/2020 12:27 PM CDTEXAM: CT CHEST, ABDOMEN AND PELVIS WITHOUT CONTRAST, CONSULTATION OUTSIDEHISTORY: 65 years -old Male with uti - shock COMPARISON: None, correlation with CT abdomen pelvis with and withoutcontrast from 09/20/2017TECHNIQUE: CT examination acquisition dated 10/22/2020 from [facility], labeled with the patients name, was submitted [...] reviewed this study and agree with the abovereport.[facility] W [id number] 17:26:11 1. ?Multifocal mixed attenuation opacities and [...] on 10/26/2020. 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 [facility], Radiant Results Inft User - 11/08/2020 9:47 AM CDTEXAM: CT CHEST, ABDOMEN AND PELVIS WITHOUT CONTRAST, CONSULTATION OUTSIDEHISTORY: 65 years -old Male with uti - shock COMPARISON: None, correlation with CT abdomen pelvis with and withoutcontrast from 09/20/2017TECHNIQUE: CT examination acquisition dated 10/22/2020 from [facility], labeled with the patients name, was submitted [...] reviewed this study and agree with the abovereport.[facility] W [id number] 17:26:11 1. 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 [facility], Radiant Results Inft User - 11/08/2020 9:47 AM CDTEXAM: CT CHEST, ABDOMEN AND PELVIS WITHOUT CONTRAST, CONSULTATION OUTSIDEHISTORY: 65 years -old Male with uti - shock COMPARISON: None, correlation with CT abdomen pelvis with and withoutcontrast from 09/20/2017TECHNIQUE: CT examination acquisition dated 10/22/2020 from [facility], labeled with the patients name, was submitted [...] reviewed this study and agree with the abovereport.[facility] GLUCOSE (AUTOMATED)2020-10-26 16:56:22 Test Item Value Reference Range Interpretation Comments POCT GLU (test code = 8700845622) 179 mg/dL 70-110 H Lab Interpretation (test code = Abnormal 38804-0) [facility] GLUCOSE (AUTOMATED)2020-10-26 13:03:19 Test Item Value Reference Range Interpretation Comments POCT GLU (test code = 6595322573) 164 mg/dL 70-110 H Lab Interpretation (test code = Abnormal 37266-4) [facility]TR[facility] [id number] 09:45:42 Test Item Value Reference Range Interpretation Comments TROPONIN I (test 0.120 ng/mL See_Comment H [Automated code = 4283274145) message] The system which generated this result [...] ? Lab Interpretation Abnormal (test code = 20942-9) [facility] WITH [id number] 09:41:39 Test Item Value Reference Range Interpretation [...] (test code = 58.0 fL 38.5-51.6 H 63718-1) RDW-CV (test code = 21.2 % 12.1-15.4 H 788-0) PLT (test code = See_Comment [Automated 777-3) message] The sy stem which generated this result transmitted reference range : 150 - 328 10*3/ ?L. The reference r christine was not used to interpret this result as normal/abnormal . MPV (test code = 12.3 fL 9.8-13.0 63967-9) IPF % (test code = 2.6 % 1.2-10.7 Platelet count 1504084976) measured by fluorescence method. NRBC/100 WBC (test See_Comment [Automat ed code = 2947121390) message] The system which generated this result transmitted reference range : 0.0 - 10.0 /100 WBCs. The refer ence range was not u sed to interpret th is result as normal/abnormal . NRBC x10^3 (test code See_Comment [Auto mated = 6512090217) message] The s ystem which generated this result transmitted reference range : 10*3/?L. The reference range was not used to interpret this result as normal/abnormal . GRAN MAT (NEUT) % 84.2 % (test code = 770-8) IMM GRAN % (test code 2.50 % = 4367253800) LYMPH % (test code = 4.7 % 736-9) MONO % (test code = 8.1 % 5905-5) EOS % (test code = 0.1 % 713-8) BASO % (test code = 0.4 % 706-2) GRAN MAT x10^3(ANC) 13.91 10*3/uL 1.99-6.95 H (test code = 7543182480) IMM GRAN x10^3 (test 0.42 10*3/uL 0.00-0.06 H code = 1220243455) LYMPH x10^3 (test 0.77 10*3/uL 1.09-3.23 L code = 731-0) MONO x10^3 (test code 1.33 10*3/uL 0.36-1.02 H = 742-7) EOS x10^3 (test code <0.03 0.06-0.53 L = 711-2) BASO x10^3 (test code 0.06 10*3/uL 0.01-0.09 = 704-7) BASO STIPPLING (test Present A code = 703-9) YVES CELLS (test code 2+ See_Comment A [Auto mated = 9590-9) message] The sy stem which generated this result transmitted reference range : (none). The reference range was not used to interpret this result as normal/abnormal . SCHISTOCYTES (test 1+ A code = 800-3) Lab Interpretation Abnormal (test code = 12483-6) [facility] METABOLIC PANEL (NA, K, CL, CO2, GLUCOSE, BUN, CREATININE, CA)2020-10-26 09:35:35 Test Item Value Reference Range Interpretation Comments NA (test code = 151 mmol/L 135-145 H 0387468018) K (test code = 3.6 mmol/L 3.5-5.0 3279181683) CL (test code = 121 mmol/L 98-108 H 0074129605) CO2 TOTAL (test code = 15 mmol/L 23-31 L 8116527911) AGAP (test code = 2-16 5574979774) BUN (test code = 57 mg/dL 7-23 H 2656029490) GLUCOSE (test code = 168 mg/dL 70-110 H 6830855856) CREATININE (test code = 1.46 mg/dL 0.60-1.25 H 7774608061) CALCIUM (test code = 9.1 mg/dL 8.6-10.6 2040842142) eGFR (test code = mL/min/1.73m2 8258966980) JUAN LUIS (test code = JUAN LUIS) [...] tests). Lab Interpretation Abnormal (test code = 75772-1) [facility]2021-[facility]-14 09:32:43 Test Item Value Reference Range Interpretation Comments MAGNESIUM (test code = 9174449739) 2.3 mg/dL 1.7-2.4 Lab Interpretation (test code = Normal 51963-5) [facility] [id number] 02:54:02 Test Item Value Reference Range Interpretation Comments TROPONIN I (test 0.117 ng/mL See_Comment H [Automated code = 1696396686) message] The system which generated this result [...] ? Lab Interpretation Abnormal (test code = 17074-0) [facility] GLUCOSE (AUTOMATED)2020-10-26 02:34:02 Test Item Value Reference Range Interpretation Comments POCT GLU (test code = 1839691124) 193 mg/dL 70-110 H Lab Interpretation (test code = Abnormal 88749-3) [facility] GLUCOSE (AUTOMATED)2020-10-25 23:37:15 Test Item Value Reference Range Interpretation Comments POCT GLU (test code = 9680797513) 166 mg/dL 70-110 H Lab Interpretation (test code = Abnormal 73396-5) [facility] [id number] 20:45:53 Test Item Value Reference Range Interpretation Comments TROPONIN I (test 0.136 ng/mL See_Comment H [Automated code = 2435708088) message] The system which generated this result [...] ? Lab Interpretation Abnormal (test code = 13435-7) [facility]2021-[facility]-13 20:27:09 Test Item Value Reference Range Interpretation Comments MAGNESIUM (test code = 8939917725) 2.3 mg/dL 1.7-2.4 Lab Interpretation (test code = Normal 80114-7) [facility]OLIC [facility] (NA, K, CL, CO2, GLUCOSE, BUN, CREATININE, CA)2020-10-25 20:06:41 Test Item Value Reference Range Interpretation Comments NA (test code = 147 mmol/L 135-145 H 5159101144) K (test code = 3.8 mmol/L 3.5-5.0 8920806830) CL (test code = 118 mmol/L 98-108 H 9985966534) CO2 TOTAL (test code = 15 mmol/L 23-31 L 2094522352) AGAP (test code = 2-16 2666920743) BUN (test code = 61 mg/dL 7-23 H 2832611965) GLUCOSE (test code = 174 mg/dL 70-110 H 2477750247) CREATININE (test code = 1.59 mg/dL 0.60-1.25 H 4752036850) CALCIUM (test code = 9.3 mg/dL 8.6-10.6 2444754356) eGFR (test code = mL/min/1.73m2 3806125553) JUAN LUIS (test code = JUAN LUIS) [...] tests). Lab Interpretation Abnormal (test code = 87162-9) [facility] + LACTIC [id number] 19:54:16 Test Item Value Reference Range Interpretation Comments PH (test code = 2) 7.35-7.45 PCO2 (test code = See_Comment L [Automat ed 2520642800) message] The sy stem which generated this result transmitted reference range : 35 - 45 mmHg. The reference range was not used to interpret this result as normal/abnormal . PO2 (test code = See_Comment [Automated 3190277876) message] The sy stem which generated this result transmitted reference range : 80 - 100 mmHg. The reference range was not used to interpret this result as normal/abnormal . HCO3 (test code = See_Comment L [Automate d 0010657029) message] The sy stem which generated this result transmitted reference range : 22 - 26 mEq/L. The reference range was not used to interpret this result as normal/abnormal . BE (test code = See_Comment L [Automated 3621525334) message] The sy stem which generated this result transmitted reference range : -3.0 - 3.0 mEq/ L. The reference r christine was not used to interpret this result as normal/abnormal . THB (test code = 10.0 g/dL 13.5-18.0 L 4251922160) %O2HB (test code = 96.5 % 94.0-99.0 3914587194) %COHB ART (test code = 0.2 % 0.0-1.5 1393314430) %METHB ART (test code = 0.3 % 0.4-1.5 L 2936858432) VOL%O2 ART (test code = 13.7 % 15.0-23.0 L 6996635985) NA (test code = 149 mmol/L 135-145 H 5903141014) K+ (test code = 3.8 mmol/L 3.5-5.0 8096286684) AC CA IONZ (test code = 5.20 mg/dL 4.50-5.30 2230413187) GLUCOSE (test code = 178 mg/dL 70-110 H 1066128182) LACTIC ACID (test code 1.36 mmol/L 0.50-2.20 = 7105399496) Lab Interpretation Abnormal (test code = 27348-7) [facility] + LACTIC [id number] 18:33:03 Test Item Value Reference Range Interpretation Comments PH (test code = 2) 7.35-7.45 L PCO2 (test code = See_Comment L [Automat ed 5106789670) message] The sy stem which generated this result transmitted reference range : 35 - 45 mmHg. The reference range was not used to interpret this result as normal/abnormal . PO2 (test code = See_Comment [Automated 7243045751) message] The sy stem which generated this result transmitted reference range : 80 - 100 mmHg. The reference range was not used to interpret this result as normal/abnormal . HCO3 (test code = See_Comment L [Automate d 0163873312) message] The sy stem which generated this result transmitted reference range : 22 - 26 mEq/L. The reference range was not used to interpret this result as normal/abnormal . BE (test code = See_Comment L [Automated 6415069417) message] The sy stem which generated this result transmitted reference range : -3.0 - 3.0 mEq/ L. The reference r christine was not used to interpret this result as normal/abnormal . THB (test code = 11.4 g/dL 13.5-18.0 L 0874842856) %O2HB (test code = 97.0 % 94.0-99.0 7028582571) %COHB ART (test code = 0.3 % 0.0-1.5 9046169632) %METHB ART (test code = 0.0 % 0.4-1.5 L 6378288070) VOL%O2 ART (test code = 15.7 % 15.0-23.0 8398674679) NA (test code = 147 mmol/L 135-145 H 2376462191) K+ (test code = 3.8 mmol/L 3.5-5.0 9303178238) AC CA IONZ (test code = 5.30 mg/dL 4.50-5.30 5026601231) GLUCOSE (test code = 173 mg/dL 70-110 H 4777497953) LACTIC ACID (test code 1.08 mmol/L 0.50-2.20 = 0836802288) Lab Interpretation Abnormal (test code = 48110-7) [facility]2020-10-25 17:17:08 Test Item Value Reference Range Interpretation Comments POCT GLU (test code = 8873561446) 179 mg/dL 70-110 H Lab Interpretation (test code = Abnormal 36887-3) [facility] + LACTIC [id number] 15:31:09 Test Item Value Reference Range Interpretation Comments PH (test code = 2) 7.35-7.45 PCO2 (test code = See_Comment L [Automat ed 6375479649) message] The sy stem which generated this result transmitted reference range : 35 - 45 mmHg. The reference range was not used to interpret this result as normal/abnormal . PO2 (test code = See_Comment [Automated 6767552057) message] The sy stem which generated this result transmitted reference range : 80 - 100 mmHg. The reference range was not used to interpret this result as normal/abnormal . HCO3 (test code = See_Comment L [Automate d 4652934602) message] The sy stem which generated this result transmitted reference range : 22 - 26 mEq/L. The reference range was not used to interpret this result as normal/abnormal . BE (test code = See_Comment L [Automated 6464967497) message] The sy stem which generated this result transmitted reference range : -3.0 - 3.0 mEq/ L. The reference r christine was not used to interpret this result as normal/abnormal . THB (test code = 9.3 g/dL 13.5-18.0 L 3397445122) %O2HB (test code = 96.5 % 94.0-99.0 6541512715) %COHB ART (test code = 0.3 % 0.0-1.5 5442869978) %METHB ART (test code = 0.3 % 0.4-1.5 L 1592979780) VOL%O2 ART (test code = 12.8 % 15.0-23.0 L 2746588111) NA (test code = 144 mmol/L 135-145 0849838571) K+ (test code = 3.6 mmol/L 3.5-5.0 8373063055) AC CA IONZ (test code = 5.10 mg/dL 4.50-5.30 8210894294) GLUCOSE (test code = 177 mg/dL 70-110 H 0259059416) LACTIC ACID (test code 0.92 mmol/L 0.50-2.20 = 6113948055) Lab Interpretation Abnormal (test code = 34316-6) [facility] GLUCOSE (AUTOMATED)2020-10-25 12:43:51 Test Item Value Reference Range Interpretation Comments POCT GLU (test code = 6825742260) 213 mg/dL 70-110 H Lab Interpretation (test code = Abnormal 11148-8) [facility] WITH [id number] 10:09:26 Test Item Value Reference Range Interpretation [...] (test code = 56.3 fL 38.5-51.6 H 22471-2) RDW-CV (test code = 20.6 % 12.1-15.4 H 788-0) PLT (test code = See_Comment [Automated 777-3) message] The sy stem which generated this result transmitted reference range : 150 - 328 10*3/ ?L. The reference r christine was not used to interpret this result as normal/abnormal . MPV (test code = 12.6 fL 9.8-13.0 68389-2) IPF % (test code = 2.3 % 1.2-10.7 Platelet count 9555519900) measured by fluorescence method. NRBC/100 WBC (test See_Comment [Automat ed code = 7197882256) message] The system which generated this result transmitted reference range : 0.0 - 10.0 /100 WBCs. The refer ence range was not u sed to interpret th is result as normal/abnormal . NRBC x10^3 (test code See_Comment [Auto mated = 0674560557) message] The s ystem which generated this result transmitted reference range : 10*3/?L. The reference range was not used to interpret this result as normal/abnormal . GRAN MAT (NEUT) % 89.5 % (test code = 770-8) IMM GRAN % (test code 2.30 % = 8778553177) LYMPH % (test code = 3.9 % 736-9) MONO % (test code = 3.8 % 5905-5) EOS % (test code = 0.1 % 713-8) BASO % (test code = 0.4 % 706-2) GRAN MAT x10^3(ANC) 13.12 10*3/uL 1.99-6.95 H (test code = 2338614249) IMM GRAN x10^3 (test 0.34 10*3/uL 0.00-0.06 H code = 0175078402) LYMPH x10^3 (test 0.57 10*3/uL 1.09-3.23 L code = 731-0) MONO x10^3 (test code 0.56 10*3/uL 0.36-1.02 = 742-7) EOS x10^3 (test code <0.03 0.06-0.53 L = 711-2) BASO x10^3 (test code 0.06 10*3/uL 0.01-0.09 = 704-7) YVES CELLS (test code 2+ See_Comment A [Auto mated = 9690-9) message] The sy stem which generated this result transmitted reference range : (none). The reference range was not used to interpret this result as normal/abnormal . SCHISTOCYTES (test 1+ A code = 800-3) Lab Interpretation Abnormal (test code = 67526-1) [facility] METABOLIC PANEL (NA, K, CL, CO2, GLUCOSE, BUN, CREATININE, CA)2020-10-25 09:03:31 Test Item Value Reference Range Interpretation Comments NA (test code = 147 mmol/L 135-145 H 4450676195) K (test code = 3.6 mmol/L 3.5-5.0 4662699389) CL (test code = 115 mmol/L 98-108 H 5978668197) CO2 TOTAL (test code = 14 mmol/L 23-31 L 0183581992) AGAP (test code = 2-16 H 4984790437) BUN (test code = 58 mg/dL 7-23 H 9127041802) GLUCOSE (test code = 193 mg/dL 70-110 H 2197778407) CREATININE (test code = 1.58 mg/dL 0.60-1.25 H 2694326995) CALCIUM (test code = 9.3 mg/dL 8.6-10.6 0345891843) eGFR (test code = mL/min/1.73m2 5172864090) JUAN LUIS (test code = JUAN LUIS) [...] tests). Lab Interpretation Abnormal (test code = 67615-9) [facility] Test Item Value Reference Range Interpretation Comments MAGNESIUM (test code = 1063320530) 2.2 mg/dL 1.7-2.4 Lab Interpretation (test code = Normal 46797-0) [facility] GLUCOSE (AUTOMATED)2020-10-25 01:29:10 Test Item Value Reference Range Interpretation Comments POCT GLU (test code = 0127543899) 135 mg/dL 70-110 H Lab Interpretation (test code = Abnormal 02970-3) [facility] GLUCOSE (AUTOMATED)2020-10-24 21:38:54 Test Item Value Reference Range Interpretation Comments POCT GLU (test code = 3958676349) 131 mg/dL 70-110 H Lab Interpretation (test code = Abnormal 31438-4) [facility] HEAD WO [id number] 20:06:13 No acute intracranial abnormality. Bilateral mastoid [...] reviewed this study and agree with the abovereport.[facility]2020-10-24 16:52:54 Test Item Value Reference Range Interpretation Comments POCT GLU (test code = 6892625949) 137 mg/dL 70-110 H Lab Interpretation (test code = Abnormal 31260-7) [facility] View - To confirm nasogastric [...] Frontal views of the abdomen were obtained. [facility], Radiant Results Inft User - 10/24/2020 9:06 [...] reviewed this study and agree with theabove report.[facility])2020-10-24 12:53:15 Test Item Value Reference Range Interpretation Comments POCT GLU (test code = 6516364398) 142 mg/dL 70-110 H Lab Interpretation (test code = Abnormal 12368-9) [facility] WITH [id number] 10:52:23 Test Item Value Reference Range Interpretation [...] (test code = 55.3 fL 38.5-51.6 H 01823-0) RDW-CV (test code = 20.4 % 12.1-15.4 H 788-0) PLT (test code = See_Comment [Automated 777-3) message] The sy stem which generated this result transmitted reference range : 150 - 328 10*3/ ?L. The reference r christine was not used to interpret this result as normal/abnormal . MPV (test code = 12.8 fL 9.8-13.0 13142-3) IPF % (test code = 4.3 % 1.2-10.7 Platelet count 3064567090) measured by fluorescence method. NRBC/100 WBC (test See_Comment [Automat ed code = 8564846054) message] The system which generated this result transmitted reference range : 0.0 - 10.0 /100 WBCs. The refer ence range was not u sed to interpret th is result as normal/abnormal . NRBC x10^3 (test code See_Comment [Auto mated = 6112001866) message] The s ystem which generated this result transmitted reference range : 10*3/?L. The reference range was not used to interpret this result as normal/abnormal . GRAN MAT (NEUT) % 90.4 % (test code = 770-8) IMM GRAN % (test code 0.80 % = 8956614027) LYMPH % (test code = 3.5 % 736-9) MONO % (test code = 4.9 % 5905-5) EOS % (test code = 0.1 % 713-8) BASO % (test code = 0.3 % 706-2) GRAN MAT x10^3(ANC) 12.98 10*3/uL 1.99-6.95 H (test code = 8303606896) IMM GRAN x10^3 (test 0.12 10*3/uL 0.00-0.06 H code = 4459150685) LYMPH x10^3 (test 0.51 10*3/uL 1.09-3.23 L code = 731-0) MONO x10^3 (test code 0.71 10*3/uL 0.36-1.02 = 742-7) EOS x10^3 (test code <0.03 0.06-0.53 L = 711-2) BASO x10^3 (test code 0.04 10*3/uL 0.01-0.09 = 704-7) ELLIPTO/OVAL (test 2+ See_Comment A [Automat ed code = 45615-6) message] The system which generated this result transmitted reference range : (none). The reference range was not used to interpret this result as normal/abnormal . SCHISTOCYTES (test 2+ A code = 800-3) BANDS (test code = Increased A 4064846850) Lab Interpretation Abnormal (test code = 77967-0) [facility] 10:23:51 Test Item Value Reference Range Interpretation Comments MAGNESIUM (test code = 8397945766) 2.2 mg/dL 1.7-2.4 Lab Interpretation (test code = Normal 23593-9) [facility] METABOLIC PANEL (NA, K, CL, CO2, GLUCOSE, BUN, CREATININE, CA)2020-10-24 10:23:51 Test Item Value Reference Range Interpretation Comments NA (test code = 144 mmol/L 135-145 7857639181) K (test code = 3.7 mmol/L 3.5-5.0 9703990850) CL (test code = 114 mmol/L 98-108 H 8718897611) CO2 TOTAL (test code = 15 mmol/L 23-31 L 2542476337) AGAP (test code = 2-16 4818724989) BUN (test code = 63 mg/dL 7-23 H 3005760629) GLUCOSE (test code = 140 mg/dL 70-110 H 5181771857) CREATININE (test code = 1.76 mg/dL 0.60-1.25 H 3585632412) CALCIUM (test code = 9.3 mg/dL 8.6-10.6 3481132636) eGFR (test code = mL/min/1.73m2 3623265147) JUAN LUIS (test code = JUAN LUIS) [...] tests). Lab Interpretation Abnormal (test code = 63018-0) [facility] GLUCOSE (AUTOMATED)2020-10-24 01:03:00 Test Item Value Reference Range Interpretation Comments POCT GLU (test code = 9928102108) 117 mg/dL 70-110 H Lab Interpretation (test code = Abnormal 40900-1) [facility] GLUCOSE (AUTOMATED)2020-10-23 23:30:25 Test Item Value Reference Range Interpretation Comments POCT GLU (test code = 0872332524) 129 mg/dL 70-110 H Lab Interpretation (test code = Abnormal 92833-1) [facility] GLUCOSE (AUTOMATED)2020-10-23 18:08:09 Test Item Value Reference Range Interpretation Comments POCT GLU (test code = 7774519243) 125 mg/dL 70-110 H Lab Interpretation (test code = Abnormal 39403-5) [facility]MR[facility] / MSSA Screen by Britney [id number] 17:04:24 Test Item Value Reference Range Interpretation Comments MSSA Screen by Britney MTZ (test code Negative Negative = 14482-0) MRSA/MSSA Positive? (test code = No No 6971427841) Lab Interpretation (test code = Normal 35271-4) [facility] WITH [id number] 14:13:40 Test Item Value Reference Range Interpretation [...] (test code = 55.7 fL 38.5-51.6 H 05455-4) RDW-CV (test code = 21.0 % 12.1-15.4 H 788-0) PLT (test code = See_Comment L [Automated 777-3) message] The system which generated this result transmit tennille reference range : 150 - 328 10*3/ ?L. The reference range was not u sed to interpret th is result as normal/abnormal . MPV (test code = Not Measure d 29914-7) IPF % (test code = 6.0 % 1.2-10.7 Platelet count 2881386438) measured by fluorescence method. NRBC/100 WBC (test See_Comment [Automat ed code = 2450010664) message] The system which generated this result transmit tennille reference range : 0.0 - 10.0 /100 WBCs. The reference range was not used to interpret this result as normal/abnormal . NRBC x10^3 (test code <0.01 See_Comment [Auto mated = 1388455362) message] The system which generated this result transmit tennille reference range : 10*3/?L. The reference range was not used to interpret this result as normal/abnormal . GRAN MAT (NEUT) % 87.1 % (test code = 770-8) IMM GRAN % (test code 0.30 % = 9272892485) LYMPH % (test code = 5.7 % 736-9) MONO % (test code = 6.1 % 5905-5) EOS % (test code = 0.5 % 713-8) BASO % (test code = 0.3 % 706-2) GRAN MAT x10^3(ANC) 9.40 10*3/uL 1.99-6.95 H (test code = 5584350772) IMM GRAN x10^3 (test 0.03 10*3/uL 0.00-0.06 code = 4243684697) LYMPH x10^3 (test 0.61 10*3/uL 1.09-3.23 L [...] BANDS (test code = MARKED INCREASED A 3488796215) DOHLE BODIES (test Present A code = 7792-5) Lab Interpretation Abnormal (test code = 49468-7) [facility]2020-10-23 13:07:35 Test Item Value Reference Range Interpretation Comments POCT GLU (test code = 9630618342) 124 mg/dL 70-110 H Lab Interpretation (test code = Abnormal 21965-0) [facility] HospitalPrep[facility] Packed RBC (in units), 1 Units 2020-10-23 10:02:05 Test Item Value Reference Range Interpretation Comments Cross Match Result Compatible (test code = 4409) ISBT Blood Type Code (test code = 208454) Unit Blood Type (test A Pos code = 4410) Unit Number (test [id number] code = 4411) Blood Expiration Date & Time (test code = 915190) Status Information Issued (test code = 4412) Product Red Blood Cells Identification (test code = 4413) Product Code (test V6689S72 Performed at [facility] code = 4414) Laboratory Services - [facility] Blood [address] [address]Bzti Free: [phone] A No. [id number] [facility]2021-[facility]-11 09:48:31 Test Item Value Reference Range Interpretation Comments MAGNESIUM (test code = 6803769107) 2.1 mg/dL 1.7-2.4 Lab Interpretation (test code = Normal 19204-2) [facility] WITH ROVO2211-03-07 09:36:10 Test Item Value Reference Range Interpretation [...] RDW-SD (test code = 50.4 fL 38.5-51.6 20554-6) RDW-CV (test code = 19.6 % 12.1-15.4 H 788-0) PLT (test code = See_Comment L [Automated 777-3) message] The system which generated this result transmit tennille reference range : 150 - 328 10*3/ ?L. The reference range was not u sed to interpret th is result as normal/abnormal . MPV (test code = 12.5 fL 9.8-13.0 92651-9) IPF % (test code = 5.6 % 1.2-10.7 Platelet count 9954756215) measured by fluorescence method. NRBC/100 WBC (test See_Comment [Automat ed code = 4996331913) message] The system which generated this result transmit tennille reference range : 0.0 - 10.0 /100 WBCs. The reference range was not used to interpret this result as normal/abnormal . NRBC x10^3 (test code <0.01 See_Comment [Auto mated = 9270375192) message] The system which generated this result transmit tennille reference range : 10*3/?L. The reference range was not used to interpret this result as normal/abnormal . GRAN MAT (NEUT) % 86.0 % (test code = 770-8) IMM GRAN % (test code 0.30 % = 8085637605) LYMPH % (test code = 7.3 % 736-9) MONO % (test code = 5.8 % 5905-5) EOS % (test code = 0.4 % 713-8) BASO % (test code = 0.2 % 706-2) GRAN MAT x10^3(ANC) 7.75 10*3/uL 1.99-6.95 H (test code = 4686798433) IMM GRAN x10^3 (test 0.03 10*3/uL 0.00-0.06 code = 9539296606) LYMPH x10^3 (test 0.66 10*3/uL 1.09-3.23 L [...] BANDS (test code = MARKED INCREASED A 8795486091) TOXIC CHANGES (test Present A code = 803-7) Lab Interpretation Abnormal (test code = 30815-3) [facility] METABOLIC PANEL (NA, K, CL, CO2, GLUCOSE, BUN, CREATININE, CA)2020-10-23 09:20:10 Test Item Value Reference Range Interpretation Comments NA (test code = 140 mmol/L 135-145 7519523819) K (test code = 3.7 mmol/L 3.5-5.0 1243467877) CL (test code = 111 mmol/L 98-108 H 4369230901) CO2 TOTAL (test code = 19 mmol/L 23-31 L 5204927960) AGAP (test code = 2-16 4339769911) BUN (test code = 72 mg/dL 7-23 H 5146831086) GLUCOSE (test code = 103 mg/dL 70-110 3135323220) CREATININE (test code = 1.88 mg/dL 0.60-1.25 H 9472480527) CALCIUM (test code = 9.2 mg/dL 8.6-10.6 9848035420) eGFR (test code = mL/min/1.73m2 6050641825) JUAN LUIS (test code = JUAN LUIS) [...] tests). Lab Interpretation Abnormal (test code = 89877-9) [facility]TROP[facility] [id number] 23:41:10 Test Item Value Reference Range Interpretation Comments TROPONIN I (test 0.092 ng/mL See_Comment H [Automated code = 8723253286) message] The system which generated this result [...] ? Lab Interpretation Abnormal (test code = 16451-1) [facility] WITH [id number] 23:37:34 Test Item Value Reference Range Interpretation [...] RDW-SD (test code = 50.0 fL 38.5-51.6 98887-4) RDW-CV (test code = 19.5 % 12.1-15.4 H 788-0) PLT (test code = See_Comment L [Automated 777-3) message] The system which generated this result transmit tennille reference range : 150 - 328 10*3/ ?L. The reference range was not u sed to interpret th is result as normal/abnormal . MPV (test code = 12.9 fL 9.8-13.0 60468-1) IPF % (test code = 4.4 % 1.2-10.7 Platelet count 5724324381) measured by fluorescence method. NRBC/100 WBC (test See_Comment [Automat ed code = 1175131389) message] The system which generated this result transmit tennille reference range : 0.0 - 10.0 /100 WBCs. The reference range was not used to interpret this result as normal/abnormal . NRBC x10^3 (test code <0.01 See_Comment [Auto mated = 5719188684) message] The system which generated this result transmit tennille reference range : 10*3/?L. The reference range was not used to interpret this result as normal/abnormal . GRAN MAT (NEUT) % 85.1 % (test code = 770-8) IMM GRAN % (test code 0.40 % = 8465059496) LYMPH % (test code = 7.4 % 736-9) MONO % (test code = 6.9 % 5905-5) EOS % (test code = 0.1 % 713-8) BASO % (test code = 0.1 % 706-2) GRAN MAT x10^3(ANC) 8.19 10*3/uL 1.99-6.95 H (test code = 4410661422) IMM GRAN x10^3 (test 0.04 10*3/uL 0.00-0.06 code = 9726535728) LYMPH x10^3 (test 0.71 10*3/uL 1.09-3.23 L [...] BANDS (test code = MARKED INCREASED A 8536068444) Lab Interpretation Abnormal (test code = 93085-1) [facility] 1 [id number] 21:40:41 Endotracheal tube in good position. NG tube terminates in the left inferior chest possibly within ahiatalhernia. Correlate clinically. Multifocal infectious/inflammatory interstitial process. RL 1159 CHEST SINGLE VIEW CLINICAL HISTORY: Intubated ORDERING [...] Correlate clin ically.Multifocal infectious/inflammatory interstitial process.RL [facility] [id number] 20:56:24 Test Item Value Reference Range Interpretation Comments FERRITIN (test code = 2110.0 ng/mL 18.0-464.0 H 2540877010) JUAN LUIS (test code = JUAN LUIS) Biotin has been reported to cause a negative bias, interpret results relative to patient's use of biotin. Lab Interpretation (test Abnormal code = 31060-4) [facility] [id number] 20:56:24 Test Item Value Reference Range Interpretation Comments FERRITIN (test code = 2110.0 ng/mL 18.0-464.0 H 3835666104) JUAN LUIS (test code = JUAN LUIS) Biotin has been reported to cause a negative bias, interpret results relative to patient's use of biotin. Lab Interpretation (test Abnormal code = 77684-7) [facility] [id number] 20:56:24 Test Item Value Reference Range Interpretation Comments FERRITIN (test code = 2110.0 ng/mL 18.0-464.0 H 0385197290) JUAN LUIS (test code = JUAN LUIS) Biotin has been reported to cause a negative bias, interpret results relative to patient's use of biotin. Lab Interpretation (test Abnormal code = 21630-6) [facility] HospitalGLYCOSYLATED HEMOGLOBIN (A1C)2020-10-22 19:31:47 Test Item Value Reference Range Interpretation Comments HGB A1C (test code = 4548-4) 4.9 % 4.0-6.0 Lab Interpretation (test code = Normal 44838-0) [facility] HospitalGLYCOSYLATED HEMOGLOBIN (A1C)2020-10-22 19:31:47 Test Item Value Reference Range Interpretation Comments HGB A1C (test code = 4548-4) 4.9 % 4.0-6.0 Lab Interpretation (test code = Normal 09349-5) [facility] HospitalGLYCOSYLATED HEMOGLOBIN (A1C)2020-10-22 19:31:47 Test Item Value Reference Range Interpretation Comments HGB A1C (test code = 4548-4) 4.9 % 4.0-6.0 Lab Interpretation (test code = Normal 13792-7) [facility] [id number] 19:18:54 Test Item Value Reference Range Interpretation Comments IRON (test code = <10 50-160 L 5433800528) TIBC (test code = 145 ug/dL 250-410 L 7696334655) % FE SAT (test code = Unable to calculate 3420133719) because, either iron serum, total ir on binding capacit y, or both are less t moser the sensitivity of the analyzer. Lab Interpretation (test Abnormal code = 03693-6) [facility] [id number] 19:18:54 Test Item Value Reference Range Interpretation Comments IRON (test code = <10 50-160 L 2542080632) TIBC (test code = 145 ug/dL 250-410 L 0079800164) % FE SAT (test code = Unable to calculate 7418809891) because, either iron serum, total ir on binding capacit y, or both are less t moser the sensitivity of the analyzer. Lab Interpretation (test Abnormal code = 05404-7) [facility] [id number] 19:18:54 Test Item Value Reference Range Interpretation Comments IRON (test code = <10 50-160 L 5244589309) TIBC (test code = 145 ug/dL 250-410 L 9266000728) % FE SAT (test code = Unable to calculate 0526081473) because, either iron serum, total ir on binding capacit y, or both are less t moser the sensitivity of the analyzer. Lab Interpretation (test Abnormal code = 05471-8) [facility] HospitalTROP[facility] [id number] 19:11:37 Test Item Value Reference Range Interpretation Comments TROPONIN I (test 0.099 ng/mL See_Comment H [Automated code = 9338396961) message] The system which generated this result [...] ? Lab Interpretation Abnormal (test code = 56977-3) [facility] WITH [id number] 18:26:52 Test Item Value Reference Range Interpretation Comments WBC (test code = See_Comment [Automated 3890-2) message] The system which generated this result transmit tennille reference range : 4.20 - 10.70 10*3/?L. The reference range was not used to interpret this result as normal/abnormal . RBC (test code = See_Comment L [Automated 939-8) message] The system which generated this result [...] RDW-SD (test code = 51.3 fL 38.5-51.6 53150-1) RDW-CV (test code = 19.8 % 12.1-15.4 H 788-0) PLT (test code = See_Comment L [Automated 777-3) message] The system which generated this result transmit tennille reference range : 150 - 328 10*3/ ?L. The reference range was not u sed to interpret th is result as normal/abnormal . MPV (test code = 13.2 fL 9.8-13.0 H 26196-9) IPF % (test code = 4.8 % 1.2-10.7 Platelet count 7901980172) measured by fluorescence method. NRBC/100 WBC (test See_Comment [Automat ed code = 0821270790) message] The system which generated this result transmit tennille reference range : 0.0 - 10.0 /100 WBCs. The reference range was not used to interpret this result as normal/abnormal . NRBC x10^3 (test code <0.01 See_Comment [Auto mated = 8417693156) message] The system which generated this result transmit tennille reference range : 10*3/?L. The reference range was not used to interpret this result as normal/abnormal . GRAN MAT (NEUT) % 85.7 % (test code = 770-8) IMM GRAN % (test code 0.20 % = 2179644308) LYMPH % (test code = 6.1 % 736-9) MONO % (test code = 7.9 % 5905-5) EOS % (test code = 0.0 % 713-8) BASO % (test code = 0.1 % 706-2) GRAN MAT x10^3(ANC) 7.24 10*3/uL 1.99-6.95 H (test code = 2433348162) IMM GRAN x10^3 (test <0.03 0.00-0.06 code = 9300536846) LYMPH x10^3 (test 0.52 10*3/uL 1.09-3.23 L [...] 2+ See_Comment A [Automat ed code = 46999-4) message] The system which generated this result transmit tennille reference range : (none). The reference range was not used to interpret this result as normal/abnormal . SCHISTOCYTES (test 2+ A code = 800-3) BANDS (test code = MARKED INCREASED A 8238293709) Lab Interpretation Abnormal (test code = 92594-5) [facility] HospitalType and Screen - ONCE [id number] 18:18:46 Test Item Value Reference Range Interpretation Comments ABO & RH (test code A POSITIVE Performe d at [facility] = 20) Laboratory Serv [facility] Blood Bank3 [address] [facility] [address]Gwxp Free: [phone] A No. [id number] IAT (test code = Negative Performed a t [facility] 1185) Laboratory Serv [facility] Blood Bank3 [address] [facility] s [address]Stdk Free: [phone] A No. [id number] [facility] HospitalURINALYSIS2021-04-10 18:13:46 Test Item Value Reference Range Interpretation Comments APPEARANCE (test code = Cloudy Clear A 8298422158) COLOR (test code = Yellow Yellow 2137970749) PH (test code = 4.8-8.0 9376244168) SP GRAVITY (test code = 1.003-1.030 4082971457) GLU U QUAL (test code = Normal Normal 0905179480) BLOOD (test code = 2+ Negative A 0411314491) KETONES (test code = Negative Negative 5111537818) PROTEIN (test code = 100 mg/dL Negative A 2887-8) UROBILIN (test code = Normal Normal 5841961330) BILIRUBIN (test code = Negative Negative 1656328510) NITRITE (test code = Negative Negative 4906541427) LEUK SILVIO (test code = 500/uL Negative A 6879842830) RBC/HPF (test code = See_Comment H [Autom ated message] 5524389650) The system Wash[employer] generated this result transmit tennille reference range : 0 - 3 HPF. The refe rence range was not u sed to interpret th is result as normal/abnormal . WBC/HPF (test code = >182 See_Comment H [Autom ated message] 4543795748) The system [employer] generated this result transmit tennille reference range : 0 - 5 HPF. The refe rence range was not u sed to interpret th is result as normal/abnormal . BACTERIA (test code = Few Negative A 5511508812) MUCOUS (test code = Slight Negative LPF A 5725049433) SQ EPITH (test code = See_Comment [Auto mated message] 8129572763) The system [employer] generated this result transmit tennille reference range : <=2 HPF. The refere nce range was not u sed to interpret th is result as normal/abnormal . WBC CLUMPS (test code = See_Comment H [Au tomated message] 1064395817) The system [employer] generated this result transmit tennille reference range : <=1 HPF. The refere nce range was not u sed to interpret th is result as normal/abnormal . HYAL CAST (test code = See_Comment H [Aut omated message] 4554885414) The system [employer] generated this result transmit tennille reference range : <=2 LPF. The refere nce range was not u sed to interpret th is result as normal/abnormal . Lab Interpretation (test Abnormal code = 79417-7) [facility]UR[facility]IS2021-04-10 18:13:46 Test Item Value Reference Range Interpretation Comments APPEARANCE (test code = Cloudy Clear A 8899280850) COLOR (test code = Yellow Yellow 4976084270) PH (test code = 4.8-8.0 1958061196) SP GRAVITY (test code = 1.003-1.030 2303631755) GLU U QUAL (test code = Normal Normal 5606295282) BLOOD (test code = 2+ Negative A 0389790647) KETONES (test code = Negative Negative 3895227425) PROTEIN (test code = 100 mg/dL Negative A 2887-8) UROBILIN (test code = Normal Normal 1221268799) BILIRUBIN (test code = Negative Negative 1629992835) NITRITE (test code = Negative Negative 5118799285) LEUK SILVIO (test code = 500/uL Negative A 6315003831) RBC/HPF (test code = See_Comment H [Autom ated message] 0821695333) The system Wash[employer] generated this result transmit tennille reference range : 0 - 3 HPF. The refe rence range was not u sed to interpret th is result as normal/abnormal . WBC/HPF (test code = >182 See_Comment H [Autom ated message] 9093539467) The system Wash[employer] generated this result transmit tennille reference range : 0 - 5 HPF. The refe rence range was not u sed to interpret th is result as normal/abnormal . BACTERIA (test code = Few Negative A 9136908519) MUCOUS (test code = Slight Negative LPF A 4228184441) SQ EPITH (test code = See_Comment [Auto mated message] 0647241839) The system Wash[employer] generated this result transmit tennille reference range : <=2 HPF. The refere nce range was not u sed to interpret th is result as normal/abnormal . WBC CLUMPS (test code = See_Comment H [Au tomated message] 7731344642) The system Wash[employer] generated this result transmit tennille reference range : <=1 HPF. The refere nce range was not u sed to interpret th is result as normal/abnormal . HYAL CAST (test code = See_Comment H [Aut omated message] 0606557509) The system Wash[employer] generated this result transmit tennille reference range : <=2 LPF. The refere nce range was not u sed to interpret th is result as normal/abnormal . Lab Interpretation (test Abnormal code = 07190-8) [facility]2021-[facility]-10 18:13:46 Test Item Value Reference Range Interpretation Comments APPEARANCE (test code = Cloudy Clear A 7289166856) COLOR (test code = Yellow Yellow 2217241366) PH (test code = 4.8-8.0 9522628661) SP GRAVITY (test code = 1.003-1.030 6194563751) GLU U QUAL (test code = Normal Normal 1654713605) BLOOD (test code = 2+ Negative A 5923224629) KETONES (test code = Negative Negative 7415565560) PROTEIN (test code = 100 mg/dL Negative A 2887-8) UROBILIN (test code = Normal Normal 1902935143) BILIRUBIN (test code = Negative Negative 4987074284) NITRITE (test code = Negative Negative 6371844689) LEUK SILVIO (test code = 500/uL Negative A 4401221808) RBC/HPF (test code = See_Comment H [Autom ated message] 9448461590) The system Wash[employer] generated this result transmit tennille reference range : 0 - 3 HPF. The refe rence range was not u sed to interpret th is result as normal/abnormal . WBC/HPF (test code = >182 See_Comment H [Autom ated message] 4339065839) The system Wash[employer] generated this result transmit tennille reference range : 0 - 5 HPF. The refe rence range was not u sed to interpret th is result as normal/abnormal . BACTERIA (test code = Few Negative A 1483108971) MUCOUS (test code = Slight Negative LPF A 0382971450) SQ EPITH (test code = See_Comment [Auto mated message] 3218324679) The system Wash[employer] generated this result transmit tennille reference range : <=2 HPF. The refere nce range was not u sed to interpret th is result as normal/abnormal . WBC CLUMPS (test code = See_Comment H [Au tomated message] 3936879503) The system Wash[employer] generated this result transmit tennille reference range : <=1 HPF. The refere nce range was not u sed to interpret th is result as normal/abnormal . HYAL CAST (test code = See_Comment H [Aut omated message] 4404982995) The system Wash[employer] generated this result transmit tennille reference range : <=2 LPF. The refere nce range was not u sed to interpret th is result as normal/abnormal . Lab Interpretation (test Abnormal code = 38752-2) [facility] HospitalHEPAT[facility] FUNCTION PANEL (85503) (ALB,T.PRO,BILI T,BU/BC,ALT,AST,ALK PHOS)2020-10-22 18:07:08 Test Item Value Reference Range Interpretation Comments TOTAL BILI (test code = 7154048710) 0.5 mg/dL 0.1-1.1 BILI UNCON (test code = 3376585876) 0.3 mg/dL 0.1-1.1 BILI CONJ (test code = 5847975415) 0.0 mg/dL 0.0-0.3 T PROTEIN (test code = 1708204530) 5.9 g/dL 6.3-8.2 L ALBUMIN (test code = 6865697351) 3.0 g/dL 3.5-5.0 L ALK PHOS (test code = 9343159874) 60 U/L 34-122 ALTv (test code = 1742-6) 35 U/L 5-50 AST(SGOT) (test code = 6521016758) 48 U/L 13-40 H Lab Interpretation (test code = Abnormal 52194-9) [facility] (90327) (ALB,T.PRO,BILI T,BU/BC,ALT,AST,ALK PHOS)2020-10-22 18:07:08 Test Item Value Reference Range Interpretation Comments TOTAL BILI (test code = 9924151791) 0.5 mg/dL 0.1-1.1 BILI UNCON (test code = 7564819557) 0.3 mg/dL 0.1-1.1 BILI CONJ (test code = 0847294234) 0.0 mg/dL 0.0-0.3 T PROTEIN (test code = 0971540016) 5.9 g/dL 6.3-8.2 L ALBUMIN (test code = 3909515017) 3.0 g/dL 3.5-5.0 L ALK PHOS (test code = 3718582346) 60 U/L 34-122 ALTv (test code = 1742-6) 35 U/L 5-50 AST(SGOT) (test code = 5908662792) 48 U/L 13-40 H Lab Interpretation (test code = Abnormal 61490-0) [facility] METABOLIC PANEL (NA, K, CL, CO2, GLUCOSE, BUN, CREATININE, CA)2020-10-22 18:07:08 Test Item Value Reference Range Interpretation Comments NA (test code = 137 mmol/L 135-145 2648429097) K (test code = 4.2 mmol/L 3.5-5.0 7560100494) CL (test code = 104 mmol/L 98-108 5081237686) CO2 TOTAL (test code = 23 mmol/L 23-31 9015300808) AGAP (test code = 2-16 4093018096) BUN (test code = 82 mg/dL 7-23 H 2420229026) GLUCOSE (test code = 84 mg/dL 70-110 6779833968) CREATININE (test code = 1.88 mg/dL 0.60-1.25 H 1598674218) CALCIUM (test code = 9.9 mg/dL 8.6-10.6 1179827903) eGFR (test code = mL/min/1.73m2 7532369089) JUAN LUIS (test code = JUAN LUIS) [...] tests). Lab Interpretation Abnormal (test code = 83192-6) [facility] (55995) (ALB,T.PRO,BILI T,BU/BC,ALT,AST,ALK PHOS)2020-10-22 18:07:08 Test Item Value Reference Range Interpretation Comments TOTAL BILI (test code = 0584795901) 0.5 mg/dL 0.1-1.1 BILI UNCON (test code = 1186333173) 0.3 mg/dL 0.1-1.1 BILI CONJ (test code = 5310479474) 0.0 mg/dL 0.0-0.3 T PROTEIN (test code = 8122947462) 5.9 g/dL 6.3-8.2 L ALBUMIN (test code = 5863457499) 3.0 g/dL 3.5-5.0 L ALK PHOS (test code = 5001475556) 60 U/L 34-122 ALTv (test code = 1742-6) 35 U/L 5-50 AST(SGOT) (test code = 6486489461) 48 U/L 13-40 H Lab Interpretation (test code = Abnormal 47129-9) [facility]FIBRINOGEN2021-04-10 17:54:11 Test Item Value Reference Range Interpretation Comments Fibrinogen (test code = 5465948730) 585 mg/dL 167-453 H Lab Interpretation (test code = Abnormal 06491-1) [facility] HospitalPROTHROMBIN TIME / [id number] 17:54:11 Test Item Value Reference Range Interpretation [...] tions. Lab Interpretation (test Abnormal code = 02415-1) [facility]AC PAN[facility] 20 + LACTIC [id number] 17:44:46 Test Item Value Reference Range Interpretation Comments PH (test code = 2) 7.35-7.45 H PCO2 (test code = See_Comment L [Automat ed 7272911167) message] The sy stem which generated this result transmitted reference range : 35 - 45 mmHg. The reference range was not used to interpret this result as normal/abnormal . PO2 (test code = See_Comment H [Automated 2416176639) message] The sy stem which generated this result transmitted reference range : 80 - 100 mmHg. The reference range was not used to interpret this result as normal/abnormal . HCO3 (test code = See_Comment L [Automate d 9914326666) message] The sy stem which generated this result transmitted reference range : 22 - 26 mEq/L. The reference range was not used to interpret this result as normal/abnormal . BE (test code = See_Comment [Automated 3573647994) message] The sy stem which generated this result transmitted reference range : -3.0 - 3.0 mEq/ L. The reference r christine was not used to interpret this result as normal/abnormal . THB (test code = 10.9 g/dL 13.5-18.0 L 0454766260) %O2HB (test code = 97.7 % 94.0-99.0 8521540844) %COHB ART (test code = 0.3 % 0.0-1.5 3362556012) %METHB ART (test code = 0.3 % 0.4-1.5 L 6896340957) VOL%O2 ART (test code = 15.1 % 15.0-23.0 4157432858) NA (test code = 134 mmol/L 135-145 L 8309670811) K+ (test code = 4.2 mmol/L 3.5-5.0 4999884290) AC CA IONZ (test code = 5.10 mg/dL 4.50-5.30 2290086451) GLUCOSE (test code = 84 mg/dL 70-110 2500720656) LACTIC ACID (test code 1.39 mmol/L 0.50-2.20 = 5993089306) Lab Interpretation Abnormal (test code = 46396-2) [facility]Type [facility] - Type and Screen expires at midnight on the 3rd day after it was drawn. A current Type and Screen is required when RBCs are requested. For all other blood products, a Type and Screen performed during the current hospitalization i...2020-05-03 21:04:13 Test Item Value Reference Range Interpretation Comments ABO & RH (test code A Positive Performe d at [facility] = 20) Laboratory [facility] Blood Bank1 [address] [place] [address] Free: [phone] A No. [id number] IAT (test code = Negative Performed a t [facility] 1185) Laboratory [facility] Blood Bank1 [address] [place], [place] [address]Toll Free: [phone] A No. [id number] [facility] HospitalTroponin [id number] 20:34:00 Test Item Value Reference Range Interpretation Comments TROPONIN I (test 0.034 ng/mL See_Comment [Automated code = 9997198362) message] The system which generated this result [...] ? Lab Interpretation Normal (test code = 43933-6) [facility] HospitalN-TERMINAL [id number] 20:31:00 Test Item Value Reference Range Interpretation Comments NT-proBNP (test code 5460 pg/mL See_Comment H [Autom ated = 1295901889) message] The system which generated this result transmitted reference range : <=125. The reference range was not used to interpret this result as normal/abnormal . JUAN LUIS (test code = JUAN LUIS) Biotin has been reported to cause a negative bias, interpret results relative to patient's use of biotin. Lab Interpretation Abnormal (test code = 38810-5) [facility] (NA, K, CL, CO2, GLUCOSE, BUN, CREATININE, CA)2020-05-03 20:22:00 Test Item Value Reference Range Interpretation Comments NA (test code = 137 mmol/L 135-145 9042896241) K (test code = 4.2 mmol/L 3.5-5 7905086924) CL (test code = 100 mmol/L 98-108 2765114614) CO2 TOTAL (test code = 28 mmol/L 23-31 1234166299) AGAP (test code = 2-16 0088796440) BUN (test code = 55 mg/dL 7-23 H 1910810748) GLUCOSE (test code = 141 mg/dL 70-110 H 4349991655) CREATININE (test code = 1.76 mg/dL 0.6-1.25 H 9916842272) CALCIUM (test code = 9.4 mg/dL 8.6-10.6 7079764805) eGFR Calculation mL/min/1.73m2 (Non-) (test code = 3872505137) eGFR Calculation mL/min/1.73m2 () (test code = 4620299489) JUAN LUIS (test code = JUAN LUIS) [...] tests). Lab Interpretation Abnormal (test code = 82838-4) [facility] (ALB, T.PRO, BILI T, BU/BC, ALT, AST, ALK PHOS)2020-05-03 20:22:00 Test Item Value Reference Range Interpretation Comments TOTAL BILI (test code = 5974050443) 0.5 mg/dL 0.1-1.1 BILI UNCON (test code = 2808464152) 0.5 mg/dL 0.1-1.1 BILI CONJ (test code = 8061318385) 0.0 mg/dL 0-0.3 T PROTEIN (test code = 3232630420) 6.5 g/dL 6.3-8.2 ALBUMIN (test code = 9741174546) 3.6 g/dL 3.5-5 ALK PHOS (test code = 2391168232) 62 U/L 34-122 ALTv (test code = 1742-6) 49 U/L 5-50 AST(SGOT) (test code = 8360239801) 50 U/L 13-40 H Lab Interpretation (test code = Abnormal 50039-8) [facility] with [id number] 20:12:00 Test Item Value Reference Range Interpretation [...] (test code = 35.9 fL 38.5-51.6 L 95047-4) RDW-CV (test code = 15.5 % 12.1-15.4 H 788-0) PLT (test code = See_Comment [Automated 777-3) message] The sy stem which generated this result transmitted reference range : 150 - 328 10*3/ ?L. The reference r christine was not used to interpret this result as normal/abnormal . MPV (test code = 12.7 fL 9.8-13 28765-3) IPF % (test code = 3.0 % 1.2-10.7 Platelet count 8565745563) measured by fluorescence method. NRBC/100 WBC (test See_Comment [Automat ed code = 8994823492) message] The system which generated this result transmitted reference range : 0.0 - 10.0 /100 WBCs. The refer ence range was not u sed to interpret th is result as normal/abnormal . NRBC x10^3 (test code <0.01 See_Comment [Auto mated = 4125804390) message] The s ystem which generated this result transmitted reference range : 10*3/?L. The reference range was not used to interpret this result as normal/abnormal . GRAN MAT (NEUT) % 65.3 % (test code = 770-8) IMM GRAN % (test code 0.30 % = 8292198269) LYMPH % (test code = 19.0 % 736-9) MONO % (test code = 8.6 % 5905-5) EOS % (test code = 6.2 % 713-8) BASO % (test code = 0.6 % 706-2) GRAN MAT x10^3(ANC) 5.10 10*3/uL 1.99-6.95 (test code = 1513391112) IMM GRAN x10^3 (test <0.03 0-0.06 code = 0023995745) LYMPH x10^3 (test code 1.48 10*3/uL 1.09-3.23 = 731-0) MONO x10^3 (test code 0.67 10*3/uL 0.36-1.02 = 742-7) EOS x10^3 (test code = 0.48 10*3/uL 0.06-0.53 711-2) BASO x10^3 (test code 0.05 10*3/uL 0.01-0.09 = 704-7) Lab Interpretation Abnormal (test code = 08403-9) [facility] GLUCOSE (AUTOMATED)2019-10-28 13:00:00 Test Item Value Reference Range Interpretation Comments POCT GLU (test code = 6657566141) 89 mg/dL 70-110 Lab Interpretation (test code = Normal 82252-4) [facility] GLUCOSE (AUTOMATED)2019-10-28 10:36:00 Test Item Value Reference Range Interpretation Comments POCT GLU (test code = 3889141427) 223 mg/dL 70-110 H Lab Interpretation (test code = Abnormal 54731-9) [facility]N-[facility]MINAL [id number] 10:09:00 Test Item Value Reference Range Interpretation Comments NT-proBNP (test code 28461 pg/mL See_Comment H [Autom ated = 5176618521) message] The system which generated this result transmitted reference range : <=125. The reference range was not used to interpret this result as normal/abnormal . JUAN LUIS (test code = JUAN LUIS) Biotin has been reported to cause a negative bias, interpret results relative to patient's use of biotin. Lab Interpretation Abnormal (test code = 94295-0) [facility]. METABOLIC PANEL (52534)2019-10-28 10:06:00 Test Item Value Reference Range Interpretation Comments NA (test code = 136 mmol/L 135-145 7148123703) K (test code = 5.0 mmol/L 3.5-5 8297825621) CL (test code = 107 mmol/L 98-108 9430151202) CO2 TOTAL (test code = 27 mmol/L 23-31 2058682745) AGAP (test code = 2-16 9123670360) BUN (test code = 50 mg/dL 7-23 H 2187981644) GLUCOSE (test code = 82 mg/dL 70-110 5558214222) CREATININE (test code = 1.76 mg/dL 0.6-1.25 H 8975767261) TOTAL BILI (test code = 0.3 mg/dL 0.1-1.3 3072309432) CALCIUM (test code = 8.9 mg/dL 8.6-10.6 7627473413) T PROTEIN (test code = 5.8 g/dL 6.3-8.2 L 7859102034) ALBUMIN (test code = 3.0 g/dL 3.5-5 L 7109242229) ALK PHOS (test code = 56 U/L 34-122 5011096399) ALTv (test code = 25 U/L 5-50 1742-6) AST(SGOT) (test code = 32 U/L 13-40 6672114555) eGFR Calculation mL/min/1.73m2 (Non-) (test code = 0245849922) eGFR Calculation mL/min/1.73m2 () (test code = 8711651525) JUAN LUIS (test code = JUAN LUIS) [...] tests). Lab Interpretation Abnormal (test code = 58066-6) [facility]UR[facility] [id number] 10:06:00 Test Item Value Reference Range Interpretation Comments URIC ACID (test code = 0327156090) 6.2 mg/dL 3.6-8 Lab Interpretation (test code = Normal 37943-1) [facility] WITH [id number] 09:42:00 Test Item Value Reference Range Interpretation Comments WBC (test code = See_Comment [Automated 9090-2) message] The sy stem which generated this [...] RDW-SD (test code = 47.8 fL 38.5-51.6 07883-8) RDW-CV (test code = 18.8 % 12.1-15.4 H 788-0) PLT (test code = See_Comment [Automated 777-3) message] The sy stem which generated this result transmitted reference range : 150 - 328 10*3/ ?L. The reference r christine was not used to interpret this result as normal/abnormal . MPV (test code = 11.6 fL 9.8-13 04644-4) IPF % (test code = 2.4 % 1.2-10.7 Platelet count 6624171080) measured by fluorescence method. NRBC/100 WBC (test See_Comment [Automat ed code = 0777150823) message] The system which generated this result transmitted reference range : 0.0 - 10.0 /100 WBCs. The refer ence range was not u sed to interpret th is result as normal/abnormal . NRBC x10^3 (test code <0.01 See_Comment [Auto mated = 2075636586) message] The s ystem which generated this result transmitted reference range : 10*3/?L. The reference range was not used to interpret this result as normal/abnormal . GRAN MAT (NEUT) % 55.9 % (test code = 770-8) IMM GRAN % (test code 0.30 % = 8086121817) LYMPH % (test code = 28.2 % 736-9) MONO % (test code = 9.1 % 5905-5) EOS % (test code = 5.3 % 713-8) BASO % (test code = 1.2 % 706-2) GRAN MAT x10^3(ANC) 3.88 10*3/uL 1.99-6.95 (test code = 5420707954) IMM GRAN x10^3 (test <0.03 0-0.06 code = 2405182913) LYMPH x10^3 (test code 1.96 10*3/uL 1.09-3.23 = 731-0) MONO x10^3 (test code 0.63 10*3/uL 0.36-1.02 = 742-7) EOS x10^3 (test code = 0.37 10*3/uL 0.06-0.53 711-2) BASO x10^3 (test code 0.08 10*3/uL 0.01-0.09 = 704-7) Lab Interpretation Abnormal (test code = 55928-8) [facility] GLUCOSE (AUTOMATED)2019-10-28 01:57:00 Test Item Value Reference Range Interpretation Comments POCT GLU (test code = 3182533410) 112 mg/dL 70-110 H Lab Interpretation (test code = Abnormal 13881-8) [facility] GLUCOSE (AUTOMATED)2019-10-27 16:31:00 Test Item Value Reference Range Interpretation Comments POCT GLU (test code = 3530595658) 142 mg/dL 70-110 H Lab Interpretation (test code = Abnormal 96492-2) [facility] GLUCOSE (AUTOMATED)2019-10-27 16:31:00 Test Item Value Reference Range Interpretation Comments POCT GLU (test code = 1539421881) 138 mg/dL 70-110 H Lab Interpretation (test code = Abnormal 71288-4) [facility]PROFILE / [id number] 16:06:00 Test Item Value Reference Range Interpretation Comments WBC (test code = See_Comment [Automated message] 6690-2) The system [employer] generated this result transmitted ref erence range: 4.20 - 1 0.70 10*3/?L. The reference range was not used to int erpret this result as normal/abnormal . RBC (test code = 789-8) See_Comment L [Au tomated message] The system [employer] generated this result transmitted ref erence range: [...] 777-3) See_Comment [Au tomated message] The system [facility] generated this result transmitted ref erence range: 150 - 32 8 10*3/?L. The reference range was not used to int erpret this result as normal/abnormal . MPV (test code = 11.4 fL 9.8-13 37258-9) RDW-CV (test code = 19.0 % 12.1-15.4 H 788-0) RDW-SD (test code = 48.5 fL 38.5-51.6 86439-2) NRBC x10^3 (test code = <0.01 See_Comment [Au tomated message] 5534447018) The system [facility] generated this result transmitted ref erence range: 10*3/?L. The reference range was not used to int erpret this result as normal/abnormal . NRBC/100 WBC (test code See_Comment [Au tomated message] = 1162373959) The system [facility] generated this result transmitted ref erence range: 0.0 - 10 .0 /100 WBCs. The reference range was not used to int erpret this result as normal/abnormal . IPF % (test code = 2.5 % 1.2-10.7 Platelet count 3920370370) measured by fluorescence me thod. Lab Interpretation Abnormal (test code = 68615-1) [facility] HospitalBRADY [id number] 15:51:00 Test Item Value Reference Range Interpretation Comments TROPONIN I (test 0.043 ng/mL See_Comment H [Automated code = 5521510812) message] The system which generated this result [...] ? Lab Interpretation Abnormal (test code = 45877-4) [facility] HospitalUREA NITROGEN, URINE [id number] 15:40:00 Test Item Value Reference Range Interpretation Comments UREA N UR (test code = 8778682358) 531 mg/dL [facility] HospitalPO[facility] GLUCOSE (AUTOMATED)2019-10-27 12:43:00 Test Item Value Reference Range Interpretation Comments POCT GLU (test code = 9610960975) 140 mg/dL 70-110 H Lab Interpretation (test code = Abnormal 21839-2) [facility] HospitalPROTEIN CREAT RATIO URINE [id number] 11:43:00 Test Item Value Reference Range Interpretation Comments T. PROT U (test code = 2888-6) 584 mg/dL CREAT U (test code = 5954131160) 28.0 mg/dL Protein/Creatinine Ratio Urine 0.0-2.0 H (test code = 6984681461) Lab Interpretation (test code = Abnormal 43497-3) [facility]URINALYSIS2020-04-14 11:12:00 Test Item Value Reference Range Interpretation Comments APPEARANCE (test code = Clear Clear 9966374704) COLOR (test code = Yellow Yellow 0747147054) PH (test code = 4.8-8.0 8939231012) SP GRAVITY (test code = 1.003-1.030 0028156894) GLU U QUAL (test code = 50 mg/dL Normal A 4507101032) BLOOD (test code = Negative Negative 6431807928) KETONES (test code = Negative Negative 4212557272) PROTEIN (test code = 100 mg/dL Negative A 2887-8) UROBILIN (test code = Normal Normal 3316345021) BILIRUBIN (test code = Negative Negative 9167334798) NITRITE (test code = Negative Negative 0784682479) LEUK SILVIO (test code = Negative Negative 3779857289) RBC/HPF (test code = See_Comment H [Autom ated message] 7619789079) The system [employer] generated this result transmit tennille reference range : 0 - 3 HPF. The refe rence range was not u sed to interpret th is result as normal/abnormal . WBC/HPF (test code = See_Comment [Autom ated message] 2467355866) The system [employer] generated this result transmit tennille reference range : 0 - 5 HPF. The refe rence range was not u sed to interpret th is result as normal/abnormal . BACTERIA (test code = Few Negative A 2838007791) MUCOUS (test code = Slight Negative LPF A 9827817620) SQ EPITH (test code = <1 HPF 2566527535) HYAL CAST (test code = See_Comment H [Aut omated message] 1822572608) The system [employer] generated this result transmit tennille reference range : <=2 LPF. The refere nce range was not u sed to interpret th is result as normal/abnormal . Lab Interpretation (test Abnormal code = 74786-1) [facility] HospitalSODIUM, URINE [id number] 11:07:00 Test Item Value Reference Range Interpretation Comments NA URINE (test code = 2112537892) 45 mmol/L [facility] GLUCOSE (AUTOMATED)2019-10-27 10:49:00 Test Item Value Reference Range Interpretation Comments POCT GLU (test code = 9089744251) 163 mg/dL 70-110 H Lab Interpretation (test code = Abnormal 24301-9) [id number] 10:10:00 Test Item Value Reference Range Interpretation Comments TROPONIN I (test 0.035 ng/mL See_Comment H [Automated code = 2887371436) message] The system which generated this result [...] ? Lab Interpretation Abnormal (test code = 38797-8) [facility]N-TERMINAL [id number] 10:07:00 Test Item Value Reference Range Interpretation Comments NT-proBNP (test code 8960 pg/mL See_Comment H [Autom ated = 4368196433) message] The system which generated this result transmitted reference range : <=125. The reference range was not used to interpret this result as normal/abnormal . JUAN LUIS (test code = JUAN LUIS) Biotin has been reported to cause a negative bias, interpret results relative to patient's use of biotin. Lab Interpretation Abnormal (test code = 44919-2) [facility] HospitalCOM. METABOLIC PANEL (67278)2019-10-27 10:03:00 Test Item Value Reference Range Interpretation Comments NA (test code = 136 mmol/L 135-145 3885643558) K (test code = 5.2 mmol/L 3.5-5 H 3321456408) CL (test code = 106 mmol/L 98-108 2687182123) CO2 TOTAL (test code = 25 mmol/L 23-31 7285017947) AGAP (test code = 2-16 5552541615) BUN (test code = 54 mg/dL 7-23 H 8791440136) GLUCOSE (test code = 139 mg/dL 70-110 H 3191143060) CREATININE (test code = 1.42 mg/dL 0.6-1.25 H 6511100416) TOTAL BILI (test code = 0.2 mg/dL 0.1-1.1 7114098302) CALCIUM (test code = 8.7 mg/dL 8.6-10.6 8458229840) T PROTEIN (test code = 5.8 g/dL 6.3-8.2 L 4023545039) ALBUMIN (test code = 2.9 g/dL 3.5-5 L 9498087743) ALK PHOS (test code = 53 U/L 34-122 1469092642) ALTv (test code = 21 U/L 5-50 1742-6) AST(SGOT) (test code = 30 U/L 13-40 9027121876) eGFR Calculation mL/min/1.73m2 (Non-) (test code = 0339216888) eGFR Calculation mL/min/1.73m2 () (test code = 0606015025) JUAN LUIS (test code = JUAN LUIS) [...] tests). Lab Interpretation Abnormal (test code = 99360-8) [facility] HospitalMAGNESIUM2020-04-14 10:01:00 Test Item Value Reference Range Interpretation Comments MAGNESIUM (test code = 1650160561) 2.5 mg/dL 1.7-2.4 H Lab Interpretation (test code = Abnormal 80431-4) [facility]URIC [id number] 10:00:00 Test Item Value Reference Range Interpretation Comments URIC ACID (test code = 4840048577) 5.7 mg/dL 3.6-8 Lab Interpretation (test code = Normal 81426-2) [facility] HospitalSEDIMENTATION [id number] 09:58:00 Test Item Value Reference Range Interpretation Comments ESR (test code = See_Comment H [Automated message] 6283853671) The system [employer] generated this result transmitted ref erence range: 0 - 10 m m/HR. The reference r christine was not used to interpret this result as normal/abnor mal. Lab Interpretation (test Abnormal code = 46407-0) [facility] HospitalFERRITIN [id number] 09:45:00 Test Item Value Reference Range Interpretation Comments FERRITIN (test code = 829.0 ng/mL 18-464 H 9570321183) JUAN LUIS (test code = JUAN LUIS) Biotin has been reported to cause a negative bias, interpret results relative to patient's use of biotin. Lab Interpretation (test Abnormal code = 59208-6) [facility] HospitalCBC WITH [id number] 09:31:00 Test Item Value Reference Range Interpretation [...] RDW-SD (test code = 46.8 fL 38.5-51.6 84638-1) RDW-CV (test code = 19.1 % 12.1-15.4 H 788-0) PLT (test code = See_Comment [Automated 777-3) message] The sy stem which generated this result transmitted reference range : 150 - 328 10*3/ ?L. The reference r christine was not used to interpret this result as normal/abnormal . MPV (test code = 10.9 fL 9.8-13 57456-6) NRBC/100 WBC (test See_Comment [Automat ed code = 7171634768) message] The system which generated this result transmitted reference range : 0.0 - 10.0 /100 WBCs. The refer ence range was not u sed to interpret th is result as normal/abnormal . NRBC x10^3 (test code <0.01 See_Comment [Auto mated = 2092226384) message] The s ystem which generated this result transmitted reference range : 10*3/?L. The reference range was not used to interpret this result as normal/abnormal . GRAN MAT (NEUT) % 79.8 % (test code = 770-8) IMM GRAN % (test code 0.20 % = 9461352139) LYMPH % (test code = 11.9 % 736-9) MONO % (test code = 7.0 % 5905-5) EOS % (test code = 0.6 % 713-8) BASO % (test code = 0.5 % 706-2) GRAN MAT x10^3(ANC) 7.01 10*3/uL 1.99-6.95 H (test code = 9779480721) IMM GRAN x10^3 (test <0.03 0-0.06 code = 1092372345) LYMPH x10^3 (test code 1.04 10*3/uL 1.09-3.23 L = 731-0) MONO x10^3 (test code 0.61 10*3/uL 0.36-1.02 = 742-7) EOS x10^3 (test code = 0.05 10*3/uL 0.06-0.53 L 711-2) BASO x10^3 (test code 0.04 10*3/uL 0.01-0.09 = 704-7) Lab Interpretation Abnormal (test code = 43488-1) [facility] [id number] 09:24:00 Test Item Value Reference Range Interpretation Comments IRON (test code = 3089619097) 46 ug/dL 50-160 L TIBC (test code = 2337353278) 256 ug/dL 250-410 % FE SAT (test code = 0727891716) 18 % 20-50 L Lab Interpretation (test code = Abnormal 31594-1) [facility] [id number] 09:22:00 Test Item Value Reference Range Interpretation Comments TROPONIN I (test 0.040 ng/mL See_Comment H [Automated code = 7752802601) message] The system which generated this result [...] ? Lab Interpretation Abnormal (test code = 38240-4) [facility] HospitalGLYCOSYLATED HEMOGLOBIN (A1C)2019-10-27 09:18:00 Test Item Value [...] Indicated Lab Interpretation Normal (test code = 16654-9) [facility]UR[facility] [id number] 09:13:00 Test Item Value Reference Range Interpretation Comments URIC ACID (test code = 8135377746) 6.2 mg/dL 3.6-8 Lab Interpretation (test code = Normal 55249-3) [facility] HospitalHEPATIC FUNCTION PANEL (62193) (ALB,T.PRO,BILI T,BU/BC,ALT,AST,ALK PHOS)2019-10-27 09:10:00 Test Item Value Reference Range Interpretation Comments TOTAL BILI (test code = 8928428805) 0.2 mg/dL 0.1-1.1 BILI UNCON (test code = 9371721999) 0.4 mg/dL 0.1-1.1 BILI CONJ (test code = 7319228424) 0.0 mg/dL 0-0.3 T PROTEIN (test code = 6597325633) 7.6 g/dL 6.3-8.2 ALBUMIN (test code = 8193220035) 4.0 g/dL 3.5-5 ALK PHOS (test code = 2428217140) 66 U/L 34-122 ALTv (test code = 1742-6) 29 U/L 5-50 AST(SGOT) (test code = 2021481438) 106 U/L 13-40 H Lab Interpretation (test code = Abnormal 49822-1) [facility] HospitalLIPID PANEL (06082)(TOTAL CHOLESTEROL, TRIGLYCERIDES, HDL)2019-10-27 09:10:00 Test Item Value Reference Range Interpretation Comments CHOL (test code = 122 mg/dL 120-200 7535343388) HDL (test code = 68 mg/dL >40 8646660294) HDLC RATIO (test code = See_Comment [Au tomated message] 9860467101) The system [employer] generated this result transmit tennille reference range : <=5.0. The refe rence range was not u sed to interpret th is result as normal/abnormal . TRIG (test code = 31 mg/dL 30-170 2035066113) LDL CHOL (test code = 48 mg/dL See_Comment [Auto mated message] 00991-6) The system [employer] generated this result transmit tennille reference range : <=160. The refe rence range was not u sed to interpret th is result as normal/abnormal . VLDL (test code = 6 mg/dL 5-60 1222074525) Lab Interpretation (test Normal code = 11232-8) [facility] HospitalCREATINE [id number] 09:10:00 Test Item Value Reference Range Interpretation Comments CK (test code = 8176693096) 174 U/L 33-194 Lab Interpretation (test code = Normal 24637-7) [facility] HospitalLIPASE2020-04-14 09:10:00 Test Item Value Reference Range Interpretation Comments LIPASE (test code = 7638355994) 115 U/L 0-220 Lab Interpretation (test code = Normal 82910-1) [facility] HospitalMAGNESIUM2020-04-14 09:10:00 Test Item Value Reference Range Interpretation Comments MAGNESIUM (test code = 5509642393) 2.7 mg/dL 1.7-2.4 H Lab Interpretation (test code = Abnormal 77997-9) [facility] HospitalPHOSPHORUS2020-04-14 09:10:00 Test Item Value Reference Range Interpretation Comments PHOSPHORUS (test code = 7327217929) 4.4 mg/dL 2.5-5 Lab Interpretation (test code = Normal 17608-2) [facility]UR[facility] [id number] 09:09:00 Test Item Value Reference Range Interpretation Comments URIC ACID (test code = 4824057079) 6.3 mg/dL 3.6-8 Lab Interpretation (test code = Normal 70445-6) [facility] GLUCOSE (AUTOMATED)2019-10-27 08:46:00 Test Item Value Reference Range Interpretation Comments POCT GLU (test code = 7012765949) 165 mg/dL 70-110 H Lab Interpretation (test code = Abnormal 10118-4) [facility] GLUCOSE (AUTOMATED)2019-10-27 06:48:00 Test Item Value Reference Range Interpretation Comments POCT GLU (test code = 1203385086) 103 mg/dL 70-110 Lab Interpretation (test code = Normal 18008-7) [facility] GLUCOSE (AUTOMATED)2019-10-27 05:32:00 Test Item Value Reference Range Interpretation Comments POCT GLU (test code = 9528927164) 82 mg/dL 70-110 Lab Interpretation (test code = Normal 07949-4) [facility] HospitalCORONAVIRUS COVID-19 [id number] 04:55:00 Test Item Value Reference Range Interpretation Comments SARS-CoV-2 (test code = Not Detected Not Detected 02398-2) JUAN LUIS (test code = JUAN LUIS) ID NOW COVID-19 Assay is an isothermal nucleic acid amplification test intended for the qualitative detection of nucleic acid from SARS-CoV-2 viral RNA in nasopharyngeal (DE ALCOHOLIZER) specimens. It is used under Emergency Use [...] indicated. Lab Interpretation Normal (test code = 45287-2) [facility] WITH [id number] 04:50:00 Test Item Value Reference Range Interpretation [...] RDW-SD (test code = 49.4 fL 38.5-51.6 05199-6) RDW-CV (test code = 19.4 % 12.1-15.4 H 788-0) PLT (test code = See_Comment [Automated 777-3) message] The sy stem which generated this result transmitted reference range : 150 - 328 10*3/ ?L. The reference r christine was not used to interpret this result as normal/abnormal . MPV (test code = 11.8 fL 9.8-13 86846-6) IPF % (test code = 2.6 % 1.2-10.7 Platelet count 2853865469) measured by fluorescence method. NRBC/100 WBC (test See_Comment [Automat ed code = 0666749055) message] The system which generated this result transmitted reference range : 0.0 - 10.0 /100 WBCs. The refer ence range was not u sed to interpret th is result as normal/abnormal . NRBC x10^3 (test code <0.01 See_Comment [Auto mated = 9774075333) message] The s ystem which generated this result transmitted reference range : 10*3/?L. The reference range was not used to interpret this result as normal/abnormal . GRAN MAT (NEUT) % 74.7 % (test code = 770-8) IMM GRAN % (test code 0.40 % = 9966961658) LYMPH % (test code = 11.6 % 736-9) MONO % (test code = 10.8 % 5905-5) EOS % (test code = 1.9 % 713-8) BASO % (test code = 0.6 % 706-2) GRAN MAT x10^3(ANC) 7.51 10*3/uL 1.99-6.95 H (test code = 2323274591) IMM GRAN x10^3 (test 0.04 10*3/uL 0-0.06 code = 8380239094) LYMPH x10^3 (test code 1.16 10*3/uL 1.09-3.23 = 731-0) MONO x10^3 (test code 1.08 10*3/uL 0.36-1.02 H = 742-7) EOS x10^3 (test code = 0.19 10*3/uL 0.06-0.53 711-2) BASO x10^3 (test code 0.06 10*3/uL 0.01-0.09 = 704-7) Lab Interpretation Abnormal (test code = 76965-0) [facility] [facility]2019-10-27 04:33:00 Test Item Value Reference Range Interpretation Comments POCT GLU (test code = 9124766288) 51 mg/dL 70-110 L Lab Interpretation (test code = Abnormal 96404-9) [facility] METABOLIC PANEL (NA, K, CL, CO2, GLUCOSE, BUN, CREATININE, CA)2019-10-27 03:51:00 Test Item Value Reference Range Interpretation Comments NA (test code = 140 mmol/L 135-145 6840854695) K (test code = 4.7 mmol/L 3.5-5 7419476821) CL (test code = 106 mmol/L 98-108 0982787897) CO2 TOTAL (test code = 27 mmol/L 23-31 0422852147) AGAP (test code = 2-16 0726658528) BUN (test code = 59 mg/dL 7-23 H 1111638773) GLUCOSE (test code = <20 70-110 LL 0636691195) CREATININE (test code = 1.57 mg/dL 0.6-1.25 H 4899266655) CALCIUM (test code = 9.6 mg/dL 8.6-10.6 9766686641) eGFR Calculation mL/min/1.73m2 (Non-) (test code = 2641745260) eGFR Calculation mL/min/1.73m2 () (test code = 7898529647) JUAN LUIS (test code = JUAN LUIS) [...] tests). Lab Interpretation Abnormal (test code = 04299-4) [facility] GLUCOSE (AUTOMATED)2019-10-27 03:34:00 Test Item Value Reference Range Interpretation Comments POCT GLU (test code = 1657874098) 69 mg/dL 70-110 L Lab Interpretation (test code = Abnormal 72976-2) [facility] GLUCOSE (AUTOMATED)2019-10-27 03:01:00 Test Item Value Reference Range Interpretation Comments POCT GLU (test code = 3887950702) 26 mg/dL 70-110 LL Lab Interpretation (test code = Abnormal 58114-8) [facility] GLUCOSE (AUTOMATED)2019-10-01 16:55:00 Test Item Value Reference Range Interpretation Comments POCT GLU (test code = 4311438510) 182 mg/dL 70-110 H Lab Interpretation (test code = Abnormal 86301-2) [facility] METABOLIC PANEL (NA, K, CL, CO2, GLUCOSE, BUN, CREATININE, CA)2019-10-01 13:17:00 Test Item Value Reference Range Interpretation Comments NA (test code = 137 mmol/L 135-145 8957771194) K (test code = 5.1 mmol/L 3.5-5 H 6351462588) CL (test code = 104 mmol/L 98-108 4846435869) CO2 TOTAL (test code = 24 mmol/L 23-31 1929239939) AGAP (test code = 2-16 3119390075) BUN (test code = 40 mg/dL 7-23 H 8369887254) GLUCOSE (test code = 98 mg/dL 70-110 2150517407) CREATININE (test code = 1.72 mg/dL 0.6-1.25 H 2397551691) CALCIUM (test code = 8.3 mg/dL 8.6-10.6 L 9773585169) eGFR Calculation mL/min/1.73m2 (Non-) (test code = 2205623375) eGFR Calculation mL/min/1.73m2 () (test code = 3519499095) JUAN LUIS (test code = JUAN LUIS) [...] tests). Lab Interpretation Abnormal (test code = 82829-3) [facility] GLUCOSE (AUTOMATED)2019-10-01 13:04:00 Test Item Value Reference Range Interpretation Comments POCT GLU (test code = 3787623401) 163 mg/dL 70-110 H Lab Interpretation (test code = Abnormal 74731-0) [facility] GLUCOSE (AUTOMATED)2019-10-01 02:08:00 Test Item Value Reference Range Interpretation Comments POCT GLU (test code = 7127415824) 156 mg/dL 70-110 H Lab Interpretation (test code = Abnormal 68804-5) [facility] GLUCOSE (AUTOMATED)2019-09-30 21:47:00 Test Item Value Reference Range Interpretation Comments POCT GLU (test code = 5267159755) 139 mg/dL 70-110 H Lab Interpretation (test code = Abnormal 39501-6) [facility]CC[facility] (GUAIAC) [id number] 17:06:00 Test Item Value Reference Range Interpretation Comments Occult (guaiac) Blood (test code = Negative Negative 2335-8) Lab Interpretation (test code = Normal 68240-3) [facility] GLUCOSE (AUTOMATED)2019-09-30 17:06:00 Test Item Value Reference Range Interpretation Comments POCT GLU (test code = 7446554726) 83 mg/dL 70-110 Lab Interpretation (test code = Normal 16132-9) [facility] GLUCOSE (AUTOMATED)2019-09-30 13:35:00 Test Item Value Reference Range Interpretation Comments POCT GLU (test code = 5724617636) 225 mg/dL 70-110 H Lab Interpretation (test code = Abnormal 14778-8) [facility] Metabolic Panel (NA, K, CL, CO2, GLUCOSE, BUN, CREATININE, CA)2019-09-30 08:40:00 Test Item Value Reference Range Interpretation Comments NA (test code = 137 mmol/L 135-145 1637056501) K (test code = 4.7 mmol/L 3.5-5 5351056206) CL (test code = 105 mmol/L 98-108 0339257449) CO2 TOTAL (test code = 24 mmol/L 23-31 1885906601) AGAP (test code = 2-16 3389080243) BUN (test code = 45 mg/dL 7-23 H 5829857142) GLUCOSE (test code = 227 mg/dL 70-110 H 9015316379) CREATININE (test code = 1.89 mg/dL 0.6-1.25 H 1993913229) CALCIUM (test code = 8.4 mg/dL 8.6-10.6 L 4361592246) eGFR Calculation mL/min/1.73m2 (Non-) (test code = 3595640913) eGFR Calculation mL/min/1.73m2 () (test code = 6233325317) JUAN LUIS (test code = JUAN LUIS) [...] tests). Lab Interpretation Abnormal (test code = 72966-9) [facility] HospitalMagnesium [id number] 08:40:00 Test Item Value Reference Range Interpretation Comments MAGNESIUM (test code = 5243230336) 2.2 mg/dL 1.7-2.4 Lab Interpretation (test code = Normal 57146-6) [facility] HospitalCT THORAX WO [id number] 03:37:29 1. 6.4 x 6.9 cm left [...] lymphadenopathy.6. Status post CABG.RL: 6190End of report [facility] HospitalUrinalysis2020-03-18 02:46:00 Test Item Value Reference Range Interpretation Comments APPEARANCE (test code = Clear Clear 4729346502) COLOR (test code = Straw Yellow A 0449074386) PH (test code = 4.8-8.0 9174951932) SP GRAVITY (test code = 1.003-1.030 9033650360) GLU U QUAL (test code = Normal Normal 6647723867) BLOOD (test code = Negative Negative 2064089215) KETONES (test code = Negative Negative 1835232492) PROTEIN (test code = 100 mg/dL Negative A 2887-8) UROBILIN (test code = Normal Normal 4606790146) BILIRUBIN (test code = Negative Negative 7317074290) NITRITE (test code = Negative Negative 7597371079) LEUK SILVIO (test code = Negative Negative 6630685860) RBC/HPF (test code = See_Comment [Autom ated message] 0325698202) The system [employer] generated this result transmit tennille reference range : 0 - 3 HPF. The refe rence range was not u sed to interpret th is result as normal/abnormal . WBC/HPF (test code = <1 See_Comment [Autom ated message] 5181017502) The system [employer] generated this result transmit tennille reference range : 0 - 5 HPF. The refe rence range was not u sed to interpret th is result as normal/abnormal . BACTERIA (test code = Negative Negative 1177282498) Lab Interpretation (test Abnormal code = 57228-5) [facility]2019-09-30 01:30:00 Test Item Value Reference Range Interpretation Comments POCT GLU (test code = 5434312045) 180 mg/dL 70-110 H Lab Interpretation (test code = Abnormal 86035-6) [facility] HospitalTroponin [id number] 22:35:00 Test Item Value Reference Range Interpretation Comments TROPONIN I (test 0.029 ng/mL See_Comment [Automated code = 5076450975) message] The system which generated this result [...] ? Lab Interpretation Normal (test code = 88632-1) [facility] HospitalN-TERMINAL [id number] 22:35:00 Test Item Value Reference Range Interpretation Comments NT-proBNP (test code 48296 pg/mL See_Comment H [Autom ated = 6970186827) message] The system which generated this result transmitted reference range : <=125. The reference range was not used to interpret this result as normal/abnormal . JUAN LUIS (test code = JUAN LUIS) Biotin has been reported to cause a negative bias, interpret results relative to patient's use of biotin. Lab Interpretation Abnormal (test code = 59721-1) [facility] HospitalXR FOOT 3+ VW [id number] 22:25:411. No acute fracture. EXAM: Right foot [...] swelling is seen in the midfoot.IMPRESSION1.No acute fracture.[facility] 1 [id number] 22:23:02CHEST ONE VIEW HISTORY: ?SOB TECHNIQUE: ?AP [...] lefthemidiaphragm2. Small left pleural effusion and mild cardiomegalyUnUT [facility] Met[facility] (NA, K, CL, CO2, GLUCOSE, BUN, CREATININE, CA)2019-09-29 22:23:00 Test Item Value Reference Range Interpretation Comments NA (test code = 136 mmol/L 135-145 2630971991) K (test code = 5.3 mmol/L 3.5-5 H 2924229470) CL (test code = 104 mmol/L 98-108 0146928612) CO2 TOTAL (test code = 23 mmol/L 23-31 2266786668) AGAP (test code = 2-16 0001410195) BUN (test code = 50 mg/dL 7-23 H 5231264612) GLUCOSE (test code = 76 mg/dL 70-110 9148993669) CREATININE (test code = 1.92 mg/dL 0.6-1.25 H 4553109861) CALCIUM (test code = 8.6 mg/dL 8.6-10.6 0953941572) eGFR Calculation mL/min/1.73m2 (Non-) (test code = 4335139628) eGFR Calculation mL/min/1.73m2 () (test code = 0056019196) JUAN LUIS (test code = JUAN LUIS) [...] tests). Lab Interpretation Abnormal (test code = 88765-1) [facility] HospitalHepatic Function Panel (ALB, T.PRO, BILI T, BU/BC, ALT, AST, ALK PHOS)2019-09-29 22:23:00 Test Item Value Reference Range Interpretation Comments TOTAL BILI (test code = 2739474333) 0.3 mg/dL 0.1-1.1 BILI UNCON (test code = 9282845134) 0.2 mg/dL 0.1-1.1 BILI CONJ (test code = 0613185926) 0.0 mg/dL 0-0.3 T PROTEIN (test code = 5373530894) 6.3 g/dL 6.3-8.2 ALBUMIN (test code = 9427345557) 3.1 g/dL 3.5-5 L ALK PHOS (test code = 9282625586) 95 U/L 34-122 ALTv (test code = 1742-6) 15 U/L 5-50 AST(SGOT) (test code = 7339533011) 19 U/L 13-40 Lab Interpretation (test code = Abnormal 37233-9) [facility] HospitalaPTT2020-03-17 22:13:00 Test Item Value Reference Range Interpretation Comments APTT Patient (test code = See_Comment [ Automated message] 3173-2) The system whic h generated this result transmitted ref erence range: 26 - 36 Seconds. The re ference range was not u sed to interpret this result as normal/abnor mal. Lab Interpretation (test Normal code = 06550-2) [facility] HospitalProthrombin Time (PT) / [id number] 22:13:00 Test Item Value Reference Range Interpretation [...] tions. Lab Interpretation (test Normal code = 79819-3) [facility] HospitalCBC WITH [id number] 22:09:00 Test Item Value Reference Range Interpretation Comments WBC (test code = See_Comment [Automated 3748-2) message] The sy stem which generated this result transmitted reference range : 4.20 - 10.70 10*3/?L. The reference range was not used to interpret this result as normal/abnormal . RBC (test code = See_Comment L [Automated 849-8) message] The sy stem which generated this [...] (test code = 55.0 fL 38.5-51.6 H 61602-3) RDW-CV (test code = 22.0 % 12.1-15.4 H 788-0) PLT (test code = See_Comment H [Automated 777-3) message] The sy stem which generated this result transmitted reference range : 150 - 328 10*3/ ?L. The reference r christine was not used to interpret this result as normal/abnormal . MPV (test code = 11.1 fL 9.8-13 02319-5) NRBC/100 WBC (test See_Comment [Automat ed code = 1679282091) message] The system which generated this result transmitted reference range : 0.0 - 10.0 /100 WBCs. The refer ence range was not u sed to interpret th is result as normal/abnormal . NRBC x10^3 (test code <0.01 See_Comment [Auto mated = 5529600458) message] The s ystem which generated this result transmitted reference range : 10*3/?L. The reference range was not used to interpret this result as normal/abnormal . GRAN MAT (NEUT) % 65.4 % (test code = 770-8) IMM GRAN % (test code 0.30 % = 0356761411) LYMPH % (test code = 18.2 % 736-9) MONO % (test code = 10.9 % 5905-5) EOS % (test code = 4.3 % 713-8) BASO % (test code = 0.9 % 706-2) GRAN MAT x10^3(ANC) 5.73 10*3/uL 1.99-6.95 (test code = 8285649793) IMM GRAN x10^3 (test 0.03 10*3/uL 0-0.06 code = 8409675439) LYMPH x10^3 (test code 1.60 10*3/uL 1.09-3.23 = 731-0) MONO x10^3 (test code 0.96 10*3/uL 0.36-1.02 = 742-7) EOS x10^3 (test code = 0.38 10*3/uL 0.06-0.53 711-2) BASO x10^3 (test code 0.08 10*3/uL 0.01-0.09 = 704-7) Lab Interpretation Abnormal (test code = 91791-1) [facility]. METABOLIC PANEL (26590)2019-09-29 16:09:00 Test Item Value Reference Range Interpretation Comments NA (test code = 136 mmol/L 135-145 4399491826) K (test code = 5.4 mmol/L 3.5-5 H 2273282511) CL (test code = 105 mmol/L 98-108 4702199754) CO2 TOTAL (test code = 23 mmol/L 23-31 2561020798) AGAP (test code = 2-16 8935955572) BUN (test code = 53 mg/dL 7-23 H 3273537502) GLUCOSE (test code = 242 mg/dL 70-110 H 5596728217) CREATININE (test code = 1.97 mg/dL 0.6-1.25 H 2447935355) TOTAL BILI (test code = 0.1 mg/dL 0.1-1.4 0184110682) CALCIUM (test code = 8.6 mg/dL 8.6-10.6 4307290812) T PROTEIN (test code = 6.0 g/dL 6.3-8.2 L 5713498890) ALBUMIN (test code = 2.9 g/dL 3.5-5 L 7488336266) ALK PHOS (test code = 91 U/L 34-122 7628559013) ALTv (test code = 15 U/L 5-50 1742-6) AST(SGOT) (test code = 22 U/L 13-40 1671035967) eGFR Calculation mL/min/1.73m2 (Non-) (test code = 2893498746) eGFR Calculation mL/min/1.73m2 () (test code = 7861493666) JUAN LUIS (test code = JUAN LUIS) [...] tests). Lab Interpretation Abnormal (test code = 39047-4) [facility] WITH [id number] 15:42:00 Test Item Value Reference Range Interpretation Comments WBC (test code = See_Comment [Automated 0406-2) message] The sy stem which generated this result transmitted reference range : 4.20 - 10.70 10*3/?L. The reference range was not used to interpret this result as normal/abnormal . RBC (test code = See_Comment L [Automated 349-8) message] The sy stem which generated this [...] (test code = 55.4 fL 38.5-51.6 H 02906-9) RDW-CV (test code = 22.5 % 12.1-15.4 H 788-0) PLT (test code = See_Comment [Automated 777-3) message] The sy stem which generated this result transmitted reference range : 150 - 328 10*3/ ?L. The reference r christine was not used to interpret this result as normal/abnormal . MPV (test code = 12.0 fL 9.8-13 87028-9) NRBC/100 WBC (test See_Comment [Automat ed code = 2369867636) message] The system which generated this result transmitted reference range : 0.0 - 10.0 /100 WBCs. The refer ence range was not u sed to interpret th is result as normal/abnormal . NRBC x10^3 (test code <0.01 See_Comment [Auto mated = 8141518749) message] The s ystem which generated this result transmitted reference range : 10*3/?L. The reference range was not used to interpret this result as normal/abnormal . GRAN MAT (NEUT) % 71.8 % (test code = 770-8) IMM GRAN % (test code 0.40 % = 9639497906) LYMPH % (test code = 13.9 % 736-9) MONO % (test code = 9.4 % 5905-5) EOS % (test code = 3.8 % 713-8) BASO % (test code = 0.7 % 706-2) GRAN MAT x10^3(ANC) 5.49 10*3/uL 1.99-6.95 (test code = 7582499913) IMM GRAN x10^3 (test 0.03 10*3/uL 0-0.06 code = 5076966997) LYMPH x10^3 (test code 1.06 10*3/uL 1.09-3.23 L = 731-0) MONO x10^3 (test code 0.72 10*3/uL 0.36-1.02 = 742-7) EOS x10^3 (test code = 0.29 10*3/uL 0.06-0.53 711-2) BASO x10^3 (test code 0.05 10*3/uL 0.01-0.09 = 704-7) Lab Interpretation Abnormal (test code = 49114-2) [facility]ST 2 [id number] 15:03:28HISTORY: S/P CABG. TECHNIQUE: PA and lateral [...] COPD, minimal congestion/atelectatic changes inthe left lung base.[facility], Radiant Results Inft User - 09/29/2019 [...] minimal congestion/atelectatic changes inthe left lung base. [facility] HospitalREFERRAL OCCUPATIONAL [id number] 00:00:00Consult received and chart reviewed via [employer]. ?Please refer to progress note for details. ? Gordo [phone] [facility] HospitalREFERRAL OCCUPATIONAL [id number] 00:00:00Consult received and verbal order placed 09-21-2019 for patient seen in clinic 09-21-2019. ?Please refer to progress note for details. Gordo [phone] CHEST 2 [id number] 01:43:48Impression:1. Persistent but improved left pleural effusion [...] heart surgery 2 weeks ago Ordering physician: Nasra Kwonwo view.Comparison: AugustFindings:Median sternotomy present. Large cardiac silhouette is seen. Small lefteffusion and basilar atelectasis is present. This has improved. Nopneumothorax. No lobar consolidation. Bone demineralization stable. Theremainder is unchanged.IMPRESSIONImpression:1. Persistent but improved left pleural effusion and left basilaratelectasis.Location Code: [address] [facility] POCT GLUCOSE (AUTOMATED)2019-09-15 18:20:00 Test Item Value Reference Range Interpretation Comments POCT GLU (test code = 3970636523) 160 mg/dL 70-110 H Lab Interpretation (test code = Abnormal 32823-4) [facility] HospitalSPUTUM [id number] 18:07:00 Test Item Value Reference Range Interpretation Comments SPUTUM CULTURE 1+ Respiratory alla: (test code = Commensal upper respiratory 622-1) microorganisms only. Gram stain (test Occasional (Rare) code = 664-3) Polymorphonuclear leukocytes JUAN LUIS (test code = Bacterial pathogens JUAN LUIS) associated with lower respiratory infections were not identified, which include Pseudomonas aeruginosa and Staphylococcus aureus (MRSA or MSSA). [facility] METABOLIC PANEL (NA, K, CL, CO2, GLUCOSE, BUN, CREATININE, CA)2019-09-15 17:31:00 Test Item Value Reference Range Interpretation Comments NA (test code = 137 mmol/L 135-145 0284495572) K (test code = 4.2 mmol/L 3.5-5 2688440761) CL (test code = 99 mmol/L 98-108 4447675028) CO2 TOTAL (test code = 30 mmol/L 23-31 2901073793) AGAP (test code = 2-16 5216008878) BUN (test code = 31 mg/dL 7-23 H 9083233901) GLUCOSE (test code = 156 mg/dL 70-110 H 5243341600) CREATININE (test code = 0.94 mg/dL 0.6-1.25 7992735578) CALCIUM (test code = 8.1 mg/dL 8.6-10.6 L 3654376958) eGFR Calculation mL/min/1.73m2 (Non-) (test code = 2385441757) eGFR Calculation mL/min/1.73m2 () (test code = 3776559703) JUAN LUIS (test code = JUAN LUIS) [...] tests). Lab Interpretation Abnormal (test code = 64499-4) [facility] WITH [id number] 17:11:00 Test Item Value Reference Range Interpretation [...] (test code = 55.8 fL 38.5-51.6 H 64952-4) RDW-CV (test code = 22.6 % 12.1-15.4 H 788-0) PLT (test code = See_Comment H [Automated 777-3) message] The sy stem which generated this result transmitted reference range : 150 - 328 10*3/ ?L. The reference r christine was not used to interpret this result as normal/abnormal . MPV (test code = 10.6 fL 9.8-13 70359-0) NRBC/100 WBC (test See_Comment [Automat ed code = 6589333043) message] The system which generated this result transmitted reference range : 0.0 - 10.0 /100 WBCs. The refer ence range was not u sed to interpret th is result as normal/abnormal . NRBC x10^3 (test code <0.01 See_Comment [Auto mated = 2269155649) message] The s ystem which generated this result transmitted reference range : 10*3/?L. The reference range was not used to interpret this result as normal/abnormal . GRAN MAT (NEUT) % 78.3 % (test code = 770-8) IMM GRAN % (test code 0.30 % = 7562469501) LYMPH % (test code = 11.7 % 736-9) MONO % (test code = 7.2 % 5905-5) EOS % (test code = 2.2 % 713-8) BASO % (test code = 0.3 % 706-2) GRAN MAT x10^3(ANC) 9.12 10*3/uL 1.99-6.95 H (test code = 2081004625) IMM GRAN x10^3 (test 0.04 10*3/uL 0-0.06 code = 9728377938) LYMPH x10^3 (test code 1.36 10*3/uL 1.09-3.23 = 731-0) MONO x10^3 (test code 0.84 10*3/uL 0.36-1.02 = 742-7) EOS x10^3 (test code = 0.26 10*3/uL 0.06-0.53 711-2) BASO x10^3 (test code 0.03 10*3/uL 0.01-0.09 = 704-7) Lab Interpretation Abnormal (test code = 64843-4) [facility] GLUCOSE (AUTOMATED)2019-09-15 14:16:00 Test Item Value Reference Range Interpretation Comments POCT GLU (test code = 5725534510) 114 mg/dL 70-110 H Lab Interpretation (test code = Abnormal 58990-5) [facility] GLUCOSE (AUTOMATED)2019-09-15 03:22:00 Test Item Value Reference Range Interpretation Comments POCT GLU (test code = 2109803912) 128 mg/dL 70-110 H Lab Interpretation (test code = Abnormal 66148-7) [facility] GLUCOSE (AUTOMATED)2019-09-14 22:37:00 Test Item Value Reference Range Interpretation Comments POCT GLU (test code = 5317730444) 133 mg/dL 70-110 H Lab Interpretation (test code = Abnormal 51805-1) [facility] GLUCOSE (AUTOMATED)2019-09-14 18:45:00 Test Item Value Reference Range Interpretation Comments POCT GLU (test code = 6419277658) 143 mg/dL 70-110 H Lab Interpretation (test code = Abnormal 62174-9) [facility] 1 [id number] 14:19:08 Bilateral hazy and patchy airspace opacities [...] leftlung may represent an atelectasis or pneumonia. [facility] GLUCOSE (AUTOMATED)2019-09-14 13:30:00 Test Item Value Reference Range Interpretation Comments POCT GLU (test code = 4228163679) 78 mg/dL 70-110 Lab Interpretation (test code = Normal 89337-1) [facility]BA[facility] (NA, K, CL, CO2, GLUCOSE, BUN, CREATININE, CA)2019-09-14 10:04:00 Test Item Value Reference Range Interpretation Comments NA (test code = 136 mmol/L 135-145 0120229914) K (test code = 4.2 mmol/L 3.5-5 8173230010) CL (test code = 102 mmol/L 98-108 5697241581) CO2 TOTAL (test code = 30 mmol/L 23-31 7322202534) AGAP (test code = 2-16 1677201097) BUN (test code = 33 mg/dL 7-23 H 0106550483) GLUCOSE (test code = 98 mg/dL 70-110 2839378362) CREATININE (test code = 1.00 mg/dL 0.6-1.25 3504674285) CALCIUM (test code = 7.5 mg/dL 8.6-10.6 L 9509829961) eGFR Calculation mL/min/1.73m2 (Non-) (test code = 7058347691) eGFR Calculation mL/min/1.73m2 () (test code = 0474750816) JUAN LUIS (test code = JUAN LUIS) [...] tests). Lab Interpretation Abnormal (test code = 48941-0) [facility]MAGNESIUM2020-03-02 10:04:00 Test Item Value Reference Range Interpretation Comments MAGNESIUM (test code = 8056347930) 2.1 mg/dL 1.7-2.4 Lab Interpretation (test code = Normal 85210-4) [facility] GLUCOSE (AUTOMATED)2019-09-14 08:13:00 Test Item Value Reference Range Interpretation Comments POCT GLU (test code = 7356211007) 71 mg/dL 70-110 Lab Interpretation (test code = Normal 08178-2) [facility] GLUCOSE (AUTOMATED)2019-09-14 02:25:00 Test Item Value Reference Range Interpretation Comments POCT GLU (test code = 5789431072) 53 mg/dL 70-110 L Lab Interpretation (test code = Abnormal 30390-3) [facility] GLUCOSE (AUTOMATED)2019-09-13 23:06:00 Test Item Value Reference Range Interpretation Comments POCT GLU (test code = 0159654860) 140 mg/dL 70-110 H Lab Interpretation (test code = Abnormal 92099-1) [facility] GLUCOSE (AUTOMATED)2019-09-13 17:45:00 Test Item Value Reference Range Interpretation Comments POCT GLU (test code = 1334460638) 260 mg/dL 70-110 H Lab Interpretation (test code = Abnormal 86059-6) [facility] GLUCOSE (AUTOMATED)2019-09-13 14:07:00 Test Item Value Reference Range Interpretation Comments POCT GLU (test code = 5183596863) 194 mg/dL 70-110 H Lab Interpretation (test code = Abnormal 29191-8) [facility] (NA, K, CL, CO2, GLUCOSE, BUN, CREATININE, CA)2019-09-13 10:14:00 Test Item Value Reference Range Interpretation Comments NA (test code = 135 mmol/L 135-145 6946300570) K (test code = 4.4 mmol/L 3.5-5 2166792567) CL (test code = 101 mmol/L 98-108 1304609044) CO2 TOTAL (test code = 27 mmol/L 23-31 4115979783) AGAP (test code = 2-16 3781318807) BUN (test code = 34 mg/dL 7-23 H 6523984979) GLUCOSE (test code = 178 mg/dL 70-110 H 7432655836) CREATININE (test code = 1.02 mg/dL 0.6-1.25 3293107391) CALCIUM (test code = 7.8 mg/dL 8.6-10.6 L [id number]) eGFR Calculation mL/min/1.73m2 (Non-) (test code = 8533944334) eGFR Calculation mL/min/1.73m2 () (test code = 7869228374) JUAN LUIS (test code = JUAN LUIS) [...] tests). Lab Interpretation Abnormal (test code = 85409-7) [facility]00 Test Item Value Reference Range Interpretation Comments MAGNESIUM (test code = [id number]) 2.2 mg/dL 1.7-2.4 Lab Interpretation (test code = Normal 35755-2) [facility] WITH [id number] 10:01:00 Test Item Value Reference Range Interpretation [...] (test code = 57.0 fL 38.5-51.6 H 21237-9) RDW-CV (test code = 22.5 % 12.1-15.4 H 788-0) PLT (test code = See_Comment [Automated 777-3) message] The sy stem which generated this result transmitted reference range : 150 - 328 10*3/ ?L. The reference r christine was not used to interpret this result as normal/abnormal . MPV (test code = 10.4 fL 9.8-13 06065-1) NRBC/100 WBC (test See_Comment [Automat ed code = 5630720913) message] The system which generated this result transmitted reference range : 0.0 - 10.0 /100 WBCs. The refer ence range was not u sed to interpret th is result as normal/abnormal . NRBC x10^3 (test code <0.01 See_Comment [Auto mated = 5133464696) message] The s ystem which generated this result transmitted reference range : 10*3/?L. The reference range was not used to interpret this result as normal/abnormal . GRAN MAT (NEUT) % 77.6 % (test code = 770-8) IMM GRAN % (test code 0.70 % = 7982918617) LYMPH % (test code = 11.2 % 736-9) MONO % (test code = 8.7 % 5905-5) EOS % (test code = 1.5 % 713-8) BASO % (test code = 0.3 % 706-2) GRAN MAT x10^3(ANC) 9.01 10*3/uL 1.99-6.95 H (test code = 1581361862) IMM GRAN x10^3 (test 0.08 10*3/uL 0-0.06 H code = 8867588223) LYMPH x10^3 (test code 1.30 10*3/uL 1.09-3.23 = 731-0) MONO x10^3 (test code 1.01 10*3/uL 0.36-1.02 = 742-7) EOS x10^3 (test code = 0.17 10*3/uL 0.06-0.53 711-2) BASO x10^3 (test code 0.03 10*3/uL 0.01-0.09 = 704-7) Lab Interpretation Abnormal (test code = 68865-2) [facility]PROCALCITONIN2020-03-01 07:12:00 Test Item Value Reference Range Interpretation Comments Procalcitonin (test 0.14 ng/mL <0.07 H code = 3573261563) JUAN LUIS (test code = JUAN LUIS) [...] lung abscess/empyema. For further information please refer to:[email or web address] Lab Interpretation Abnormal (test code = 70760-6) [facility]ATED)2019-09-13 02:20:00 Test Item Value Reference Range Interpretation Comments POCT GLU (test code = 4456912742) 227 mg/dL 70-110 H Lab Interpretation (test code = Abnormal 34281-6) [facility] HospitalTROPONIN [id number] 00:35:00 Test Item Value Reference Range Interpretation Comments TROPONIN I (test 0.087 ng/mL See_Comment H [Automated code = 6055126430) message] The system which generated this result [...] ? Lab Interpretation Abnormal (test code = 67672-4) [facility]MAG[facility]UM2020-03-01 00:23:00 Test Item Value Reference Range Interpretation Comments MAGNESIUM (test code = 6216246026) 2.1 mg/dL 1.7-2.4 Lab Interpretation (test code = Normal 04193-3) [facility] GLUCOSE (AUTOMATED)2019-09-12 22:52:00 Test Item Value Reference Range Interpretation Comments POCT GLU (test code = 6094913418) 135 mg/dL 70-110 H Lab Interpretation (test code = Abnormal 52103-7) [facility] GLUCOSE (AUTOMATED)2019-09-12 19:33:00 Test Item Value Reference Range Interpretation Comments POCT GLU (test code = 7244033449) 150 mg/dL 70-110 H Lab Interpretation (test code = Abnormal 78945-8) [facility] HospitalaPTT2020-02-29 18:28:00 Test Item Value Reference Range Interpretation Comments APTT Patient (test See_Comment [Automat ed code = 3173-2) message] The system which generated this result transmitted reference range : 23 - 38 Seconds . The reference range was not used to interpr et this result as normal/abnormal . JUAN LUIS (test code = JUAN LUIS) The [facility] patient population mean normal value for aPTT is 30 seconds. Lab Interpretation Normal (test code = 24791-0) [facility]XR CHEST 1 [id number] 16:45:37Impression:1. Left basilar atelectasis or pneumonia with [...] and osseousstructures unremarkable. Cardiac silhouette is enlarged. [facility], Radiant Results Inft User - 09/12/2019 [...] dictation.2. Central congestion without edema.[facility] Code[facility] [facility] Whole [id number] 16:20:00 Test Item Value Reference Range Interpretation Comments LACTIC ACID (test code = 1.00 mmol/L 0.5-2.2 6421542955) Lab Interpretation (test code = Normal 42294-2) [facility] HospitalTROPONIN [id number] 16:11:00 Test Item Value Reference Range Interpretation Comments TROPONIN I (test 0.104 ng/mL See_Comment H [Automated code = 4875078619) message] The system which generated this result [...] ? Lab Interpretation Abnormal (test code = 04759-6) [facility] HospitalCOMP. METABOLIC PANEL (88181)2019-09-12 16:09:00 Test Item Value Reference Range Interpretation Comments NA (test code = 135 mmol/L 135-145 5798312140) K (test code = 5.1 mmol/L 3.5-5 H 3793218092) CL (test code = 101 mmol/L 98-108 9781050264) CO2 TOTAL (test code = 27 mmol/L 23-31 5943292474) AGAP (test code = 2-16 7697122511) BUN (test code = 39 mg/dL 7-23 H 4892133001) GLUCOSE (test code = 118 mg/dL 70-110 H 1699703311) CREATININE (test code = 1.12 mg/dL 0.6-1.25 7122607384) TOTAL BILI (test code = 0.4 mg/dL 0.1-1.0 5628992097) CALCIUM (test code = 8.6 mg/dL 8.6-10.6 2485213471) T PROTEIN (test code = 6.1 g/dL 6.3-8.2 L 3318651649) ALBUMIN (test code = 3.1 g/dL 3.5-5 L 6270311969) ALK PHOS (test code = 76 U/L 34-122 7113034391) ALTv (test code = 13 U/L 5-50 1742-6) AST(SGOT) (test code = 23 U/L 13-40 6144636326) eGFR Calculation mL/min/1.73m2 (Non-) (test code = 1014675015) eGFR Calculation mL/min/1.73m2 () (test code = 4812184680) JUAN LUIS (test code = JUAN LUIS) [...] tests). Lab Interpretation Abnormal (test code = 04575-2) [facility] HospitalLIPASE2020-02-29 16:09:00 Test Item Value Reference Range Interpretation Comments LIPASE (test code = 3992447484) 29 U/L 0-220 Lab Interpretation (test code = Normal 76365-0) [facility] HospitalMAGNESIUM2020-02-29 16:09:00 Test Item Value Reference Range Interpretation Comments MAGNESIUM (test code = 2688911542) 2.3 mg/dL 1.7-2.4 Lab Interpretation (test code = Normal 28984-3) [facility] HospitalN-TERMINAL [id number] 16:09:00 Test Item Value Reference Range Interpretation Comments NT-proBNP (test code 04881 pg/mL See_Comment H [Autom ated = 6848494897) message] The system which generated this result transmitted reference range : <=125. The reference range was not used to interpret this result as normal/abnormal . JUAN LUIS (test code = JUAN LUIS) Biotin has been reported to cause a negative bias, interpret results relative to patient's use of biotin. Lab Interpretation Abnormal (test code = 53191-1) [facility] HospitalPROTHROMBIN TIME / [id number] 15:51:00 Test Item Value Reference Range Interpretation [...] tions. Lab Interpretation (test Normal code = 30315-2) [facility] WITH [id number] 15:42:00 Test Item Value Reference Range Interpretation [...] (test code = 57.1 fL 38.5-51.6 H 83178-3) RDW-CV (test code = 22.9 % 12.1-15.4 H 788-0) PLT (test code = See_Comment H [Automated 777-3) message] The system which generated this result transmit tennille reference range : 150 - 328 10*3/ ?L. The reference range was not u sed to interpret th is result as normal/abnormal . MPV (test code = 11.1 fL 9.8-13 85123-4) NRBC/100 WBC (test See_Comment [Automat ed code = 5837048377) message] The system which generated this result transmit tennille reference range : 0.0 - 10.0 /100 WBCs. The reference range was not used to interpret this result as normal/abnormal . NRBC x10^3 (test code <0.01 See_Comment [Auto mated = 7017315835) message] The system which generated this result transmit tennille reference range : 10*3/?L. The reference range was not used to interpret this result as normal/abnormal . GRAN MAT (NEUT) % 76.8 % (test code = 770-8) IMM GRAN % (test code 0.70 % = 1479507446) LYMPH % (test code = 11.4 % 736-9) MONO % (test code = 8.6 % 5905-5) EOS % (test code = 2.0 % 713-8) BASO % (test code = 0.5 % 706-2) GRAN MAT x10^3(ANC) 11.37 10*3/uL 1.99-6.95 H (test code = 9017612009) IMM GRAN x10^3 (test 0.11 10*3/uL 0-0.06 H code = 2423149719) LYMPH x10^3 (test code 1.68 10*3/uL 1.09-3.23 = 731-0) MONO x10^3 (test code 1.28 10*3/uL 0.36-1.02 H = 742-7) EOS x10^3 (test code = 0.29 10*3/uL 0.06-0.53 711-2) BASO x10^3 (test code 0.07 10*3/uL 0.01-0.09 = 704-7) Lab Interpretation Abnormal (test code = 74549-3) [facility] GLUCOSE (AUTOMATED)2019-09-12 15:27:00 Test Item Value Reference Range Interpretation Comments POCT GLU (test code = 9107891950) 128 mg/dL 70-110 H Lab Interpretation (test code = Abnormal 77048-2) [facility] GLUCOSE (AUTOMATED)2019-09-07 18:25:00 Test Item Value Reference Range Interpretation Comments POCT GLU (test code = 9015593157) 92 mg/dL 70-110 Lab Interpretation (test code = Normal 07439-6) [facility] GLUCOSE (AUTOMATED)2019-09-07 14:39:00 Test Item Value Reference Range Interpretation Comments POCT GLU (test code = 1188644290) 118 mg/dL 70-110 H Lab Interpretation (test code = Abnormal 59905-8) [facility] GLUCOSE (AUTOMATED)2019-09-07 03:00:00 Test Item Value Reference Range Interpretation Comments POCT GLU (test code = 8975634743) 111 mg/dL 70-110 H Lab Interpretation (test code = Abnormal 69721-9) [facility] GLUCOSE (AUTOMATED)2019-09-06 23:30:00 Test Item Value Reference Range Interpretation Comments POCT GLU (test code = 7934895099) 66 mg/dL 70-110 L Lab Interpretation (test code = Abnormal 06727-0) [facility] GLUCOSE (AUTOMATED)2019-09-06 18:24:00 Test Item Value Reference Range Interpretation Comments POCT GLU (test code = 7459696283) 94 mg/dL 70-110 Lab Interpretation (test code = Normal 47046-5) [facility] GLUCOSE (AUTOMATED)2019-09-06 14:00:00 Test Item Value Reference Range Interpretation Comments POCT GLU (test code = 5319988380) 158 mg/dL 70-110 H Lab Interpretation (test code = Abnormal 91102-6) [facility] METABOLIC PANEL (NA, K, CL, CO2, GLUCOSE, BUN, CREATININE, CA)2019-09-06 07:25:00 Test Item Value Reference Range Interpretation Comments NA (test code = 134 mmol/L 135-145 L 9164899610) K (test code = 4.1 mmol/L 3.5-5 1868518630) CL (test code = 101 mmol/L 98-108 1715799495) CO2 TOTAL (test code = 27 mmol/L 23-31 9714342079) AGAP (test code = 2-16 7841292126) BUN (test code = 44 mg/dL 7-23 H 2791771348) GLUCOSE (test code = 138 mg/dL 70-110 H 2564745713) CREATININE (test code = 0.95 mg/dL 0.6-1.25 3904096975) CALCIUM (test code = 7.6 mg/dL 8.6-10.6 L 9763521725) eGFR Calculation mL/min/1.73m2 (Non-) (test code = 5149257892) eGFR Calculation mL/min/1.73m2 () (test code = 5346318079) JUAN LUIS (test code = JUAN LUIS) [...] tests). Lab Interpretation Abnormal (test code = 03703-0) [facility]PHOSPHORUS2020-02-23 07:25:00 Test Item Value Reference Range Interpretation Comments PHOSPHORUS (test code = 3697150991) 2.6 mg/dL 2.5-5 Lab Interpretation (test code = Normal 03398-6) [facility] WITH [id number] 07:10:00 Test Item Value Reference Range Interpretation Comments WBC (test code = See_Comment [Automated 0990-2) message] The sy stem which generated this result transmitted reference range : 4.20 - 10.70 10*3/?L. The reference range was not used to interpret this result as normal/abnormal . RBC (test code = See_Comment L [Automated 859-8) message] The sy stem which generated this [...] (test code = 59.2 fL 38.5-51.6 H 40054-8) RDW-CV (test code = 22.7 % 12.1-15.4 H 788-0) PLT (test code = See_Comment [Automated 777-3) message] The sy stem which generated this result transmitted reference range : 150 - 328 10*3/ ?L. The reference r christine was not used to interpret this result as normal/abnormal . MPV (test code = 11.4 fL 9.8-13 07791-9) NRBC/100 WBC (test See_Comment [Automat ed code = 6598204705) message] The system which generated this result transmitted reference range : 0.0 - 10.0 /100 WBCs. The refer ence range was not u sed to interpret th is result as normal/abnormal . NRBC x10^3 (test code <0.01 See_Comment [Auto mated = 9143251415) message] The s ystem which generated this result transmitted reference range : 10*3/?L. The reference range was not used to interpret this result as normal/abnormal . GRAN MAT (NEUT) % 73.2 % (test code = 770-8) IMM GRAN % (test code 0.50 % = 2413760058) LYMPH % (test code = 11.5 % 736-9) MONO % (test code = 11.2 % 5905-5) EOS % (test code = 3.3 % 713-8) BASO % (test code = 0.3 % 706-2) GRAN MAT x10^3(ANC) 7.78 10*3/uL 1.99-6.95 H (test code = 5072081632) IMM GRAN x10^3 (test 0.05 10*3/uL 0-0.06 code = 9757705618) LYMPH x10^3 (test code 1.22 10*3/uL 1.09-3.23 = 731-0) MONO x10^3 (test code 1.19 10*3/uL 0.36-1.02 H = 742-7) EOS x10^3 (test code = 0.35 10*3/uL 0.06-0.53 711-2) BASO x10^3 (test code 0.03 10*3/uL 0.01-0.09 = 704-7) Lab Interpretation Abnormal (test code = 74443-3) [facility] 1 [id number] 01:35:34Impression: Stable findings with obliteration of the [...] are osteopenic. The upper abdomen is unremarkable. [facility], Radiant Results Inft User - 09/05/2019 [...] of the left hemidiaphragm and the leftcostophrenic angle..[facility]2019-09-06 01:25:00 Test Item Value Reference Range Interpretation Comments POCT GLU (test code = 0281724672) 98 mg/dL 70-110 Lab Interpretation (test code = Normal 93133-6) [facility] GLUCOSE (AUTOMATED)2019-09-05 23:11:00 Test Item Value Reference Range Interpretation Comments POCT GLU (test code = 1964377174) 76 mg/dL 70-110 Lab Interpretation (test code = Normal 74445-6) [facility] GLUCOSE (AUTOMATED)2019-09-05 18:45:00 Test Item Value Reference Range Interpretation Comments POCT GLU (test code = 3400094571) 99 mg/dL 70-110 Lab Interpretation (test code = Normal 89256-7) [facility] GLUCOSE (AUTOMATED)2019-09-05 13:48:00 Test Item Value Reference Range Interpretation Comments POCT GLU (test code = 4144069855) 229 mg/dL 70-110 H Lab Interpretation (test code = Abnormal 04705-8) [facility]PHOS[facility]2020-02-22 10:04:00 Test Item Value Reference Range Interpretation Comments PHOSPHORUS (test code = 5073931967) 3.4 mg/dL 2.5-5 Lab Interpretation (test code = Normal 95478-3) [facility] (NA, K, CL, CO2, GLUCOSE, BUN, CREATININE, CA)2019-09-05 10:04:00 Test Item Value Reference Range Interpretation Comments NA (test code = 135 mmol/L 135-145 8760352740) K (test code = 3.7 mmol/L 3.5-5 3030610345) CL (test code = 103 mmol/L 98-108 0011269082) CO2 TOTAL (test code = 26 mmol/L 23-31 9462225754) AGAP (test code = 2-16 0564100866) BUN (test code = 40 mg/dL 7-23 H 9598300495) GLUCOSE (test code = 173 mg/dL 70-110 H 8825777467) CREATININE (test code = 1.17 mg/dL 0.6-1.25 1216121243) CALCIUM (test code = 7.4 mg/dL 8.6-10.6 L 7494311719) eGFR Calculation mL/min/1.73m2 (Non-) (test code = 3317666592) eGFR Calculation mL/min/1.73m2 () (test code = 0713180431) JUAN LUIS (test code = JUAN LUIS) [...] tests). Lab Interpretation Abnormal (test code = 73134-2) [facility]2020-02-22 10:04:00 Test Item Value Reference Range Interpretation Comments MAGNESIUM (test code = 1338258018) 2.2 mg/dL 1.7-2.4 Lab Interpretation (test code = Normal 71089-8) [facility] WITH [id number] 09:53:00 Test Item Value Reference Range Interpretation Comments WBC (test code = See_Comment H [Automated 90-2) message] The sy stem which generated this [...] (test code = 55.0 fL 38.5-51.6 H 53330-1) RDW-CV (test code = 22.1 % 12.1-15.4 H 788-0) PLT (test code = See_Comment L [Automated 777-3) message] The sy stem which generated this result transmitted reference range : 150 - 328 10*3/ ?L. The reference r christine was not used to interpret this result as normal/abnormal . MPV (test code = 10.6 fL 9.8-13 39667-0) NRBC/100 WBC (test See_Comment [Automat ed code = 7281870889) message] The system which generated this result transmitted reference range : 0.0 - 10.0 /100 WBCs. The refer ence range was not u sed to interpret th is result as normal/abnormal . NRBC x10^3 (test code <0.01 See_Comment [Auto mated = 9434202459) message] The s ystem which generated this result transmitted reference range : 10*3/?L. The reference range was not used to interpret this result as normal/abnormal . GRAN MAT (NEUT) % 78.0 % (test code = 770-8) IMM GRAN % (test code 0.70 % = 8953462295) LYMPH % (test code = 8.8 % 736-9) MONO % (test code = 10.6 % 5905-5) EOS % (test code = 1.6 % 713-8) BASO % (test code = 0.3 % 706-2) GRAN MAT x10^3(ANC) 9.06 10*3/uL 1.99-6.95 H (test code = 1395067300) IMM GRAN x10^3 (test 0.08 10*3/uL 0-0.06 H code = 7237280805) LYMPH x10^3 (test code 1.02 10*3/uL 1.09-3.23 L = 731-0) MONO x10^3 (test code 1.23 10*3/uL 0.36-1.02 H = 742-7) EOS x10^3 (test code = 0.18 10*3/uL 0.06-0.53 711-2) BASO x10^3 (test code 0.03 10*3/uL 0.01-0.09 = 704-7) Lab Interpretation Abnormal (test code = 24653-3) [facility] GLUCOSE (AUTOMATED)2019-09-05 05:58:00 Test Item Value Reference Range Interpretation Comments POCT GLU (test code = 5073912801) 160 mg/dL 70-110 H Lab Interpretation (test code = Abnormal 29191-7) [facility] GLUCOSE (AUTOMATED)2019-09-05 03:22:00 Test Item Value Reference Range Interpretation Comments POCT GLU (test code = 3585055598) 56 mg/dL 70-110 L Lab Interpretation (test code = Abnormal 74828-4) [facility] GLUCOSE (AUTOMATED)2019-09-05 03:22:00 Test Item Value Reference Range Interpretation Comments POCT GLU (test code = 5039455859) 103 mg/dL 70-110 Lab Interpretation (test code = Normal 41411-5) [facility] GLUCOSE (AUTOMATED)2019-09-05 02:41:00 Test Item Value Reference Range Interpretation Comments POCT GLU (test code = 3759840904) 98 mg/dL 70-110 Lab Interpretation (test code = Normal 11771-8) [facility] GLUCOSE (AUTOMATED)2019-09-04 18:03:00 Test Item Value Reference Range Interpretation Comments POCT GLU (test code = 6462266929) 173 mg/dL 70-110 H Lab Interpretation (test code = Abnormal 19844-5) [facility] [id number] 14:25:52 No acute intrathoracic abnormality. PROCEDURE: XR [...] abnormality. Sternotomy sutures are noted.IMPRESSIONNo acute intrathoracic abnormality.[facility] GLUCOSE (AUTOMATED)2019-09-04 14:18:00 Test Item Value Reference Range Interpretation Comments POCT GLU (test code = 0402582374) 198 mg/dL 70-110 H Lab Interpretation (test code = Abnormal 36707-1) [facility] HospitalIONIZED [id number] 13:12:00 Test Item Value Reference Range Interpretation Comments IONIZED CA (test code = 4.60 mg/dL 4.5-5.3 6110430470) PH SERUM (test code = 9681766432) 7.35-7.45 H Lab Interpretation (test code = Abnormal 71981-6) [facility] [id number] 11:39:00 Test Item Value Reference Range Interpretation Comments WBC (test code = See_Comment H [Automated 7590-2) message] The system which generated this result [...] (test code = 56.0 fL 38.5-51.6 H 35280-7) RDW-CV (test code = 21.9 % 12.1-15.4 H 788-0) PLT (test code = See_Comment [Automated 777-3) message] The system which generated this result transmit tennille reference range : 150 - 328 10*3/ ?L. The reference range was not u sed to interpret th is result as normal/abnormal . MPV (test code = 11.4 fL 9.8-13 44212-5) NRBC/100 WBC (test See_Comment [Automat ed code = 8647178460) message] The system which generated this result transmit tennille reference range : 0.0 - 10.0 /100 WBCs. The reference range was not used to interpret this result as normal/abnormal . NRBC x10^3 (test code <0.01 See_Comment [Auto mated = 2485879799) message] The system which generated this result transmit tennille reference range : 10*3/?L. The reference range was not used to interpret this result as normal/abnormal . SEG % (test code = 88 % 33-76 H 02397-2) BAND % (test code = 3 % 0-1 H 71820-9) LYMPH % (test code = 6 % 14-54 L 86524-4) MONO % (test code = 3 % 0-4 19518-5) ANC (test code = 12.63 10*3/uL 1.99-6.95 H 1057812177) YVES CELLS (test code 2+ See_Comment A [Auto mated = 0290-9) message] The system which generated this result transmit tennille reference range : (none). The reference range was not used to interpret this result as normal/abnormal . ELLIPTO/OVAL (test 2+ See_Comment A [Automat ed code = 48566-4) message] The system which generated this result transmit tennille reference range : (none). The reference range was not used to interpret this result as normal/abnormal . SCHISTOCYTES (test 1+ A code = 800-3) TOXIC CHANGES (test Present A code = 803-7) PLT ESTIMATE (test Normal Normal code = 9317-9) Lab Interpretation Abnormal (test code = 26113-1) [facility] METABOLIC PANEL (NA, K, CL, CO2, GLUCOSE, BUN, CREATININE, CA)2019-09-04 11:26:00 Test Item Value Reference Range Interpretation Comments NA (test code = 136 mmol/L 135-145 7556933632) K (test code = 3.4 mmol/L 3.5-5 L 3076728182) CL (test code = 103 mmol/L 98-108 5101587237) CO2 TOTAL (test code = 26 mmol/L 23-31 6332025135) AGAP (test code = 2-16 9669609429) BUN (test code = 42 mg/dL 7-23 H 8795042631) GLUCOSE (test code = 184 mg/dL 70-110 H 9220796605) CREATININE (test code = 1.14 mg/dL 0.6-1.25 3998985596) CALCIUM (test code = 8.0 mg/dL 8.6-10.6 L 0151131524) eGFR Calculation mL/min/1.73m2 (Non-) (test code = 1732315268) eGFR Calculation mL/min/1.73m2 () (test code = 2109872581) JUAN LUIS (test code = JUAN LUIS) [...] tests). Lab Interpretation Abnormal (test code = 10157-6) [facility] 11:26:00 Test Item Value Reference Range Interpretation Comments MAGNESIUM (test code = 9450686681) 2.0 mg/dL 1.7-2.4 Lab Interpretation (test code = Normal 38366-6) [facility] GLUCOSE (AUTOMATED)2019-09-04 11:05:00 Test Item Value Reference Range Interpretation Comments POCT GLU (test code = 4045439462) 202 mg/dL 70-110 H Lab Interpretation (test code = Abnormal 55285-5) [facility] GLUCOSE (AUTOMATED)2019-09-04 09:12:00 Test Item Value Reference Range Interpretation Comments POCT GLU (test code = 6235598277) 190 mg/dL 70-110 H Lab Interpretation (test code = Abnormal 81051-4) [facility] GLUCOSE (AUTOMATED)2019-09-04 05:59:00 Test Item Value Reference Range Interpretation Comments POCT GLU (test code = 6917157286) 144 mg/dL 70-110 H Lab Interpretation (test code = Abnormal 89454-9) [facility] GLUCOSE (AUTOMATED)2019-09-04 03:37:00 Test Item Value Reference Range Interpretation Comments POCT GLU (test code = 9259586952) 138 mg/dL 70-110 H Lab Interpretation (test code = Abnormal 98785-0) [facility] GLUCOSE (AUTOMATED)2019-09-04 02:36:00 Test Item Value Reference Range Interpretation Comments POCT GLU (test code = 54 mg/dL 70-110 L Notifi ed Provider 1440331451) Lab Interpretation (test Abnormal code = 23136-9) [facility] GLUCOSE (AUTOMATED)2019-09-04 02:35:00 Test Item Value Reference Range Interpretation Comments POCT GLU (test code = 8987384420) 137 mg/dL 70-110 H Lab Interpretation (test code = Abnormal 73459-2) [facility] GLUCOSE (AUTOMATED)2019-09-03 23:29:00 Test Item Value Reference Range Interpretation Comments POCT GLU (test code = 6443939523) 68 mg/dL 70-110 L Lab Interpretation (test code = Abnormal 13119-9) [facility] GLUCOSE (AUTOMATED)2019-09-03 23:06:00 Test Item Value Reference Range Interpretation Comments POCT GLU (test code = 3170162797) 69 mg/dL 70-110 L Lab Interpretation (test code = Abnormal 14253-6) [facility] [facility] [id number] 22:57:22 Mild residual atelectasis. No definite pneumothorax. [...] venous catheter sheath terminates in the mid SVC.[facility] GLUCOSE (AUTOMATED)2019-09-03 17:30:00 Test Item Value Reference Range Interpretation Comments POCT GLU (test code = 3979947592) 108 mg/dL 70-110 Lab Interpretation (test code = Normal 96733-2) [facility] [id number] 15:06:00EXAM: XR CHEST 1 VW HISTORY: s/p cabg COMPARISON: None. FINDINGS: Chest tubes drain the pleural space on each side, and a mediastinal drainis in the expected position. The [place] catheter was removed. The tip ofthe right [...] a mediastinal drainis in theexpected position. The [place] catheter was removed. The tip ofthe right IJ line is in the superior vena cava The heart is upper limit ofnormal in size or slightly enlarged to the left, probably thelatter. Thelungs are moderately well expanded and clear except for very minor hilarvascular congestion. No pleural effusion or pneumothorax is detected.[facility] GLUCOSE (AUTOMATED)2019-09-03 14:42:00 Test Item Value Reference Range Interpretation Comments POCT GLU (test code = 136 mg/dL 70-110 H Notifi ed Provider [id number]) Lab Interpretation (test Abnormal code = 13589-1) [facility] WITH [id number] 10:31:00 Test Item Value Reference Range Interpretation [...] (test code = 53.7 fL 38.5-51.6 H 09652-5) RDW-CV (test code = 21.4 % 12.1-15.4 H 788-0) PLT (test code = See_Comment [Automated 777-3) message] The system which generated this result transmit tennille reference range : 150 - 328 10*3/ ?L. The reference range was not u sed to interpret th is result as normal/abnormal . MPV (test code = 11.5 fL 9.8-13 52315-0) NRBC/100 WBC (test See_Comment [Automat ed code = 3667723500) message] The system which generated this result transmit tennille reference range : 0.0 - 10.0 /100 WBCs. The reference range was not used to interpret this result as normal/abnormal . NRBC x10^3 (test code <0.01 See_Comment [Auto mated = 9909201337) message] The system which generated this result transmit tennille reference range : 10*3/?L. The reference range was not used to interpret this result as normal/abnormal . GRAN MAT (NEUT) % 84.6 % (test code = 770-8) IMM GRAN % (test code 0.60 % = 9775557915) LYMPH % (test code = 4.2 % 736-9) MONO % (test code = 10.5 % 5905-5) EOS % (test code = 0.0 % 713-8) BASO % (test code = 0.1 % 706-2) GRAN MAT x10^3(ANC) 14.72 10*3/uL 1.99-6.95 H (test code = 3079549081) IMM GRAN x10^3 (test 0.11 10*3/uL 0-0.06 H code = 9335804229) LYMPH x10^3 (test code 0.74 10*3/uL 1.09-3.23 L = 731-0) MONO x10^3 (test code 1.83 10*3/uL 0.36-1.02 H = 742-7) EOS x10^3 (test code = <0.03 0.06-0.53 L 711-2) BASO x10^3 (test code <0.03 0.01-0.09 = 704-7) BASO STIPPLING (test Present A code = 703-9) SCHISTOCYTES (test 1+ A code = 800-3) Lab Interpretation Abnormal (test code = 35079-1) [facility] METABOLIC PANEL (NA, K, CL, CO2, GLUCOSE, BUN, CREATININE, CA)2019-09-03 10:19:00 Test Item Value Reference Range Interpretation Comments NA (test code = 137 mmol/L 135-145 5430523797) K (test code = 4.0 mmol/L 3.5-5 1857521335) CL (test code = 104 mmol/L 98-108 2548267124) CO2 TOTAL (test code = 24 mmol/L 23-31 0017148017) AGAP (test code = 2-16 8973379162) BUN (test code = 51 mg/dL 7-23 H 4430209068) GLUCOSE (test code = 204 mg/dL 70-110 H 5465530151) CREATININE (test code = 1.72 mg/dL 0.6-1.25 H 0888730161) CALCIUM (test code = 8.6 mg/dL 8.6-10.6 0335864517) eGFR Calculation mL/min/1.73m2 (Non-) (test code = 0085304237) eGFR Calculation mL/min/1.73m2 () (test code = 8881316462) JUAN LUIS (test code = JUAN LUIS) [...] tests). Lab Interpretation Abnormal (test code = 80104-1) [facility]2020-02-20 10:19:00 Test Item Value Reference Range Interpretation Comments MAGNESIUM (test code = 2271921234) 2.5 mg/dL 1.7-2.4 H Lab Interpretation (test code = Abnormal 75817-5) [facility] GLUCOSE (AUTOMATED)2019-09-03 09:37:00 Test Item Value Reference Range Interpretation Comments POCT GLU (test code = 283 mg/dL 70-110 H Notifi ed Provider 1831798307) Lab Interpretation (test Abnormal code = 68958-9) [facility] GLUCOSE (AUTOMATED)2019-09-03 09:12:00 Test Item Value Reference Range Interpretation Comments POCT GLU (test code = 7910093823) 240 mg/dL 70-110 H Lab Interpretation (test code = Abnormal 39623-4) [facility] GLUCOSE (AUTOMATED)2019-09-03 06:11:00 Test Item Value Reference Range Interpretation Comments POCT GLU (test code = 4505420915) 309 mg/dL 70-110 H Lab Interpretation (test code = Abnormal 96366-3) [facility] GLUCOSE (AUTOMATED)2019-09-02 22:21:00 Test Item Value Reference Range Interpretation Comments POCT GLU (test code = 8043456749) 281 mg/dL 70-110 H Lab Interpretation (test code = Abnormal 05413-4) [facility] GLUCOSE (AUTOMATED)2019-09-02 18:57:00 Test Item Value Reference Range Interpretation Comments POCT GLU (test code = 6292122463) 244 mg/dL 70-110 H Lab Interpretation (test code = Abnormal 46854-9) [facility] MSSA Screen by Britney [id number] 17:19:00 Test Item Value Reference Range Interpretation Comments MSSA Screen by Britney MTZ (test code Negative Negative = 21068-1) MRSA/MSSA Positive? (test code = No No 6255141911) Lab Interpretation (test code = Normal 21906-2) [facility] 1 [id number] 15:38:43EXAM: XR CHEST 1 VW HISTORY: s/p open heart surgery COMPARISON: None. FINDINGS: The heart is slightly enlarged, not different than noted previously. Thetip of the [place] catheter is in the main pulmonary artery. [...] different than noted previously. Thetip of the [place] catheter is in the main pulmonary artery. A chest tubedrains the pleural space on the right and a mediastinal drain is in place.The endotracheal tube was removed. The chest tube on the left was removed.The lungs are moderately well expanded and clear.[facility] GLUCOSE (AUTOMATED)2019-09-02 13:46:00 Test Item Value Reference Range Interpretation Comments POCT GLU (test code = 3323374846) 157 mg/dL 70-110 H Lab Interpretation (test code = Abnormal 15927-5) [facility] GLUCOSE (AUTOMATED)2019-09-02 10:17:00 Test Item Value Reference Range Interpretation Comments POCT GLU (test code = 7846179109) 149 mg/dL 70-110 H Lab Interpretation (test code = Abnormal 15646-1) [facility] GLUCOSE (AUTOMATED)2019-09-02 10:17:00 Test Item Value Reference Range Interpretation Comments POCT GLU (test code = 6544977816) 109 mg/dL 70-110 Lab Interpretation (test code = Normal 66805-8) [facility]2020-02-19 07:38:00 Test Item Value Reference Range Interpretation Comments MAGNESIUM (test code = 3434285494) 2.6 mg/dL 1.7-2.4 H Lab Interpretation (test code = Abnormal 36058-0) [facility] (NA, K, CL, CO2, GLUCOSE, BUN, CREATININE, CA)2019-09-02 07:38:00 Test Item Value Reference Range Interpretation Comments NA (test code = 137 mmol/L 135-145 6140326956) K (test code = 4.6 mmol/L 3.5-5 1196138448) CL (test code = 108 mmol/L 98-108 5998348233) CO2 TOTAL (test code = 23 mmol/L 23-31 9419329294) AGAP (test code = 2-16 6895440366) BUN (test code = 40 mg/dL 7-23 H 3082380281) GLUCOSE (test code = 120 mg/dL 70-110 H 2317618722) CREATININE (test code = 1.72 mg/dL 0.6-1.25 H 7171467888) CALCIUM (test code = 8.1 mg/dL 8.6-10.6 L 9738820879) eGFR Calculation mL/min/1.73m2 (Non-) (test code = 2483663209) eGFR Calculation mL/min/1.73m2 () (test code = 9931286708) JUAN LUIS (test code = JUAN LUIS) [...] tests). Lab Interpretation Abnormal (test code = 28388-2) [facility]OS[facility]2020-02-19 07:38:00 Test Item Value Reference Range Interpretation Comments PHOSPHORUS (test code = 3638298285) 4.5 mg/dL 2.5-5 Lab Interpretation (test code = Normal 68830-4) [facility]HEPAT[facility] FUNCTION PANEL (02488) (ALB,T.PRO,BILI T,BU/BC,ALT,AST,ALK PHOS)2019-09-02 07:38:00 Test Item Value Reference Range Interpretation Comments TOTAL BILI (test code = 0817048438) 0.2 mg/dL 0.1-1.1 BILI UNCON (test code = 1776537524) 0.2 mg/dL 0.1-1.1 BILI CONJ (test code = 3579058393) 0.0 mg/dL 0-0.3 T PROTEIN (test code = 0354962162) 4.7 g/dL 6.3-8.2 L ALBUMIN (test code = 7426927242) 2.4 g/dL 3.5-5 L ALK PHOS (test code = 7594085703) 34 U/L 34-122 ALTv (test code = 1742-6) 15 U/L 5-50 AST(SGOT) (test code = 2127043087) 43 U/L 13-40 H Lab Interpretation (test code = Abnormal 60109-7) [facility]ABG+COOX+NA+K+GLU+CA2+2019-09-02 07:30:00 Test Item Value Reference Range Interpretation Comments PH (test code = 2) 7.35-7.45 PCO2 (test code = See_Comment [Automat ed message] 9563768458) The system [employer] generated this result transmit tennille reference range : 35 - 45 mmHg. The reference range was not used to interpret this result as normal/abnormal . PO2 (test code = See_Comment H [Automated message] 4990651109) The system [employer] generated this result transmit tennille reference range : 80 - 100 mmHg. The reference range was not used to interpret this result as normal/abnormal . HCO3 (test code = See_Comment L [Automate d message] 7125007171) The system [employer] generated this result transmit tennille reference range : 22 - 26 mEq/L. The reference range was not used to interpret this result as normal/abnormal . BE (test code = See_Comment L [Automated message] 1204158469) The system [employer] generated this result transmit tennille reference range : -3.0 - 3.0 mEq/ L. The reference r christine was not used to interpret this result as normal/abnormal . THB (test code = 9.6 g/dL 13.5-18 L 1186955306) %O2HB (test code = 97.8 % 94-99 3240243067) %COHB ART (test code = 0.3 % 0-1.5 3459806478) %METHB ART (test code = 0.3 % 0.4-1.5 L 6716101437) VOL%O2 ART (test code = 13.5 % 15-23 L 1717220350) NA (test code = 135 mmol/L 135-145 0053481969) K+ (test code = 4.4 mmol/L 3.5-5 8278611338) AC CA IONZ (test code = 5.00 mg/dL 4.5-5.3 6631785590) GLUCOSE (test code = 117 mg/dL 70-110 H 3182310540) Lab Interpretation Abnormal (test code = 98707-2) [facility]FILE / [id number] 07:28:00 Test Item Value Reference Range Interpretation Comments WBC (test code = 6690-2) See_Comment H [A utomated message] The system [employer] generated this result transmit tennille reference range : 4.20 - 10.70 10*3/?L. The reference range was not used to interpret this result as normal/abnormal . RBC (test code = 789-8) See_Comment L [Au tomated message] The system [employer] generated this result transmit tennille reference range [...] 777-3) See_Comment [Au tomated message] The system [employer] generated this result transmit tennille reference range : 150 - 328 10*3/?L. The reference range was not used to interpret this result as normal/abnormal . MPV (test code = 11.1 fL 9.8-13 81541-9) RDW-CV (test code = 19.5 % 12.1-15.4 H 788-0) RDW-SD (test code = 50.0 fL 38.5-51.6 87648-7) NRBC x10^3 (test code = <0.01 See_Comment [Au tomated message] 0695477583) The system whic h generated this result transmit tennille reference range : 10*3/?L. The reference range was not used to interpret this result as normal/abnormal . NRBC/100 WBC (test code See_Comment [Au tomated message] = 7626605135) The system whi ch generated this result transmit tennille reference range : 0.0 - 10.0 /100 WBC s. The reference r christine was not used to interpret this result as normal/abnormal . IPF % (test code = 1059360355) Lab Interpretation (test Abnormal code = 69569-7) [facility]2019-09-02 06:07:00 Test Item Value Reference Range Interpretation Comments POCT GLU (test code = 2228219246) 183 mg/dL 70-110 H Lab Interpretation (test code = Abnormal 62501-3) [facility] 20 + LACTIC [id number] 03:06:00 Test Item Value Reference Range Interpretation Comments PH (test code = 2) 7.35-7.45 PCO2 (test code = See_Comment L [Automat ed 0521401297) message] The sy stem which generated this result transmitted reference range : 35 - 45 mmHg. The reference range was not used to interpret this result as normal/abnormal . PO2 (test code = See_Comment H [Automated 8250049997) message] The sy stem which generated this result transmitted reference range : 80 - 100 mmHg. The reference range was not used to interpret this result as normal/abnormal . HCO3 (test code = See_Comment L [Automate d 1115284298) message] The sy stem which generated this result transmitted reference range : 22 - 26 mEq/L. The reference range was not used to interpret this result as normal/abnormal . BE (test code = See_Comment L [Automated 7093041991) message] The sy stem which generated this result transmitted reference range : -3.0 - 3.0 mEq/ L. The reference r christine was not used to interpret this result as normal/abnormal . THB (test code = 10.2 g/dL 13.5-18 L 7593272238) %O2HB (test code = 98.1 % 94-99 3757189917) %COHB ART (test code = 0.3 % 0-1.5 8966011387) %METHB ART (test code = 0.3 % 0.4-1.5 L 8304086184) VOL%O2 ART (test code = 14.4 % 15-23 L 9363386387) NA (test code = 134 mmol/L 135-145 L 2463553158) K+ (test code = 4.9 mmol/L 3.5-5 1857236491) AC CA IONZ (test code = 4.90 mg/dL 4.5-5.3 4231331731) GLUCOSE (test code = 176 mg/dL 70-110 H 5614186095) LACTIC ACID (test code 1.62 mmol/L 0.5-2.2 = 2354090858) Lab Interpretation Abnormal (test code = 95657-2) [facility] GLUCOSE (AUTOMATED)2019-09-02 01:41:00 Test Item Value Reference Range Interpretation Comments POCT GLU (test code = 5693672901) 176 mg/dL 70-110 H Lab Interpretation (test code = Abnormal 78210-2) [facility] GLUCOSE (AUTOMATED)2019-09-01 23:56:00 Test Item Value Reference Range Interpretation Comments POCT GLU (test code = 2643741420) 172 mg/dL 70-110 H Lab Interpretation (test code = Abnormal 94663-6) [facility] METABOLIC PANEL (NA, K, CL, CO2, GLUCOSE, BUN, CREATININE, CA)2019-09-01 23:52:00 Test Item Value Reference Range Interpretation Comments NA (test code = 136 mmol/L 135-145 5887094011) K (test code = 5.1 mmol/L 3.5-5 H 7143742033) CL (test code = 106 mmol/L 98-108 9689807122) CO2 TOTAL (test code = 23 mmol/L 23-31 7134921468) AGAP (test code = 2-16 4696087549) BUN (test code = 34 mg/dL 7-23 H 6131466508) GLUCOSE (test code = 147 mg/dL 70-110 H 2640148736) CREATININE (test code = 1.75 mg/dL 0.6-1.25 H 1288330188) CALCIUM (test code = 8.4 mg/dL 8.6-10.6 L 0649332759) eGFR Calculation mL/min/1.73m2 (Non-) (test code = 6001155110) eGFR Calculation mL/min/1.73m2 () (test code = 4302548141) JUAN LUIS (test code = JUAN LUIS) [...] tests). Lab Interpretation Abnormal (test code = 04971-4) [facility]2020-02-18 23:49:00 Test Item Value Reference Range Interpretation Comments MAGNESIUM (test code = 4530246371) 2.3 mg/dL 1.7-2.4 Lab Interpretation (test code = Normal 24521-3) [facility]2020-02-18 23:49:00 Test Item Value Reference Range Interpretation Comments PHOSPHORUS (test code = 2223796296) 4.0 mg/dL 2.5-5 Lab Interpretation (test code = Normal 39993-2) [facility] GLUCOSE (AUTOMATED)2019-09-01 23:48:00 Test Item Value Reference Range Interpretation Comments POCT GLU (test code = 2688647750) 131 mg/dL 70-110 H Lab Interpretation (test code = Abnormal 50987-4) [facility]PTT2020-02-18 23:48:00 Test Item Value Reference Range Interpretation Comments APTT Patient (test code = See_Comment [ Automated message] 3173-2) The system [employer] generated this result transmitted ref erence range: 26 - 36 Seconds. The re ference range was not u sed to interpret this result as normal/abnor mal. Lab Interpretation (test Normal code = 61136-9) [facility]+COOX+NA+K+GLU+CA2+2019-09-01 23:34:00 Test Item Value Reference Range Interpretation Comments PH (test code = 2) 7.35-7.45 PCO2 (test code = See_Comment [Automat ed message] 5815772275) The system [employer] generated this result transmit tennille reference range : 35 - 45 mmHg. The reference range was not used to interpret this result as normal/abnormal . PO2 (test code = See_Comment H [Automated message] 7760470971) The system [employer] generated this result transmit tennille reference range : 80 - 100 mmHg. The reference range was not used to interpret this result as normal/abnormal . HCO3 (test code = See_Comment L [Automate d message] 3017523270) The system [employer] generated this result transmit tennille reference range : 22 - 26 mEq/L. The reference range was not used to interpret this result as normal/abnormal . BE (test code = See_Comment L [Automated message] 8833836820) The system [employer] generated this result transmit tennille reference range : -3.0 - 3.0 mEq/ L. The reference r christine was not used to interpret this result as normal/abnormal . THB (test code = 10.0 g/dL 13.5-18 L 5213627250) %O2HB (test code = 98.0 % 94-99 4530552386) %COHB ART (test code = 0.3 % 0-1.5 1288196424) %METHB ART (test code = 0.2 % 0.4-1.5 L 0810974780) VOL%O2 ART (test code = 14.1 % 15-23 L 1900658154) NA (test code = 134 mmol/L 135-145 L 6430210853) K+ (test code = 5.0 mmol/L 3.5-5 2580384820) AC CA IONZ (test code = 4.90 mg/dL 4.5-5.3 2803697646) GLUCOSE (test code = 151 mg/dL 70-110 H 4137115033) Lab Interpretation Abnormal (test code = 47012-3) [facility] WITH [id number] 21:06:00 Test Item Value Reference Range Interpretation [...] (test code = 51.8 fL 38.5-51.6 H 83971-7) RDW-CV (test code = 20.2 % 12.1-15.4 H 788-0) PLT (test code = See_Comment [Automated 777-3) message] The system which generated this result transmit tennille reference range : 150 - 328 10*3/ ?L. The reference range was not u sed to interpret th is result as normal/abnormal . MPV (test code = 11.7 fL 9.8-13 05605-5) NRBC/100 WBC (test See_Comment [Automat ed code = 5311294126) message] The system which generated this result transmit tennille reference range : 0.0 - 10.0 /100 WBCs. The reference range was not used to interpret this result as normal/abnormal . NRBC x10^3 (test code <0.01 See_Comment [Auto mated = 5429423379) message] The system which generated this result transmit tennille reference range : 10*3/?L. The reference range was not used to interpret this result as normal/abnormal . GRAN MAT (NEUT) % 87.5 % (test code = 770-8) IMM GRAN % (test code 0.80 % = 8258591568) LYMPH % (test code = 4.4 % 736-9) MONO % (test code = 6.6 % 5905-5) EOS % (test code = 0.4 % 713-8) BASO % (test code = 0.3 % 706-2) GRAN MAT x10^3(ANC) 12.12 10*3/uL 1.99-6.95 H (test code = 6551229594) IMM GRAN x10^3 (test 0.11 10*3/uL 0-0.06 H code = 9688518643) LYMPH x10^3 (test code 0.61 10*3/uL 1.09-3.23 L = 731-0) MONO x10^3 (test code 0.92 10*3/uL 0.36-1.02 = 742-7) EOS x10^3 (test code = 0.05 10*3/uL 0.06-0.53 L 711-2) BASO x10^3 (test code 0.04 10*3/uL 0.01-0.09 = 704-7) Lab Interpretation Abnormal (test code = 78482-4) [facility] + LACTIC [id number] 21:06:00 Test Item Value Reference Range Interpretation Comments PH (test code = 2) 7.35-7.45 PCO2 (test code = See_Comment [Automat ed 5678430147) message] The sy stem which generated this result transmitted reference range : 35 - 45 mmHg. The reference range was not used to interpret this result as normal/abnormal . PO2 (test code = See_Comment H [Automated 3263570967) message] The sy stem which generated this result transmitted reference range : 80 - 100 mmHg. The reference range was not used to interpret this result as normal/abnormal . HCO3 (test code = See_Comment [Automate d 0976084441) message] The sy stem which generated this result transmitted reference range : 22 - 26 mEq/L. The reference range was not used to interpret this result as normal/abnormal . BE (test code = See_Comment [Automated 8386160286) message] The sy stem which generated this result transmitted reference range : -3.0 - 3.0 mEq/ L. The reference r christine was not used to interpret this result as normal/abnormal . THB (test code = 9.9 g/dL 13.5-18 L 2298225925) %O2HB (test code = 98.0 % 94-99 3648163464) %COHB ART (test code = 0.3 % 0-1.5 8788378335) %METHB ART (test code = 0.1 % 0.4-1.5 L 4312918288) VOL%O2 ART (test code = 14.0 % 15-23 L 4104837287) NA (test code = 135 mmol/L 135-145 2687299165) K+ (test code = 4.5 mmol/L 3.5-5 5275192146) AC CA IONZ (test code = 4.60 mg/dL 4.5-5.3 2297800355) GLUCOSE (test code = 124 mg/dL 70-110 H 7340858151) LACTIC ACID (test code 0.89 mmol/L 0.5-2.2 = 8948085504) Lab Interpretation Abnormal (test code = 76491-6) [facility] (NA, K, CL, CO2, GLUCOSE, BUN, CREATININE, CA)2019-09-01 21:02:00 Test Item Value Reference Range Interpretation Comments NA (test code = 137 mmol/L 135-145 6988202314) K (test code = 4.3 mmol/L 3.5-5 7591418139) CL (test code = 107 mmol/L 98-108 3606203867) CO2 TOTAL (test code = 24 mmol/L 23-31 5785353446) AGAP (test code = 2-16 8333478373) BUN (test code = 31 mg/dL 7-23 H 7832132013) GLUCOSE (test code = 106 mg/dL 70-110 4603237518) CREATININE (test code = 1.68 mg/dL 0.6-1.25 H 7469992527) CALCIUM (test code = 7.0 mg/dL 8.6-10.6 L 4104103890) eGFR Calculation mL/min/1.73m2 (Non-) (test code = 7548804401) eGFR Calculation mL/min/1.73m2 () (test code = 4501796659) JUAN LUIS (test code = JUAN LUIS) [...] tests). Lab Interpretation Abnormal (test code = 35844-5) [facility]2020-[facility]-18 21:02:00 Test Item Value Reference Range Interpretation Comments MAGNESIUM (test code = 5738142199) 1.9 mg/dL 1.7-2.4 Lab Interpretation (test code = Normal 39642-8) [facility]2020-02-18 21:02:00 Test Item Value Reference Range Interpretation Comments PHOSPHORUS (test code = 5865044496) 3.1 mg/dL 2.5-5 Lab Interpretation (test code = Normal 20868-6) [facility] HospitalPROTHROMBIN TIME / [id number] 20:59:00 Test Item Value Reference Range Interpretation Comments PROTIME PATIENT (test See_Comment H [Auto mated message] code = 5964-2) The system [employer] ich generated this result transmitted ref erence range: 10.1 - 1 2.6 Seconds. The reference range was not used to int erpret this result as normal/abnormal . INR (test code = 6301-6) Nor mal INR <1.1; Warfarin Therap eutic range 2.0 to 3. 0 or 2.5 to 3.5, dep ending upon the indica tions. Lab Interpretation (test Abnormal code = 48824-8) [facility]2020-02-18 20:59:00 Test Item Value Reference Range Interpretation Comments APTT Patient (test code See_Comment H [Au tomated message] = 3173-2) The system [employer] generated this result transmitted ref erence range: 26 - 36 Seconds. The reference range was not used to int erpret this result as normal/abnormal . Lab Interpretation (test Abnormal code = 61535-9) [facility] HospitalPrep[facility] Packed RBC (in units), 2 Units 2019-09-01 20:58:25 Test Item Value Reference Range Interpretation Comments Cross Match Result Compatible (test code = 4409) ISBT Blood Type Code (test code = 746046) Unit Blood Type (test A Pos code = 4410) Unit Number (test [id number] code = 4411) Blood Expiration Date & Time (test code = 400419) Status Information Issued (test code = 4412) Product Red Blood Cells Identification (test code = 4413) Product Code (test [id number] Performed at [facility] code = 4414) Laboratory Services - [facility] Blood [address] [place] [id number] Free: [phone] A No. [id number] [facility] HospitalC[facility] 1 View (on admission)2019-09-01 19:53:23 Lines and tubes in expected position Lungs are expanded and clear with mild perihilar congestion. XR CHEST 1 VW HISTORY: s/p open heart surgery COMPARISON: 08/22/2019 FINDINGS: Lines and tubes: The endotracheal tube terminates 4.6 cm from amol.NG tube extends to stomach.Right IJ [place] terminates at proximal right PA.Mediastinal and chest [...] from amol.NG tube extends to stomach.Right IJ [place] terminates at proximal right PA.Mediastinal and chest tubes in place.Lungs and pleura: Unremarkable with mild perihilar congestion. No pleuraleffusion or pneumothorax.Mediastinum and heart: UnremarkableBones; unre markable status post medial sternotomy.IMPRESSIONLines and tubes in expected positionLungs are expanded and clear with mild perihilar congestion.[facility]+NA+K+GLU+CA2+2019-09-01 19:30:00 Test Item Value Reference Range Interpretation Comments PH (test code = 2) 7.35-7.45 PCO2 (test code = See_Comment [Automat ed message] 9285153037) The system [employer] generated this result transmit tennille reference range : 35 - 45 mmHg. The reference range was not used to interpret this result as normal/abnormal . PO2 (test code = See_Comment H [Automated message] 0358438622) The system [employer] generated this result transmit tennille reference range : 80 - 100 mmHg. The reference range was not used to interpret this result as normal/abnormal . HCO3 (test code = See_Comment [Automate d message] 4900639241) The system [employer] generated this result transmit tennille reference range : 22 - 26 mEq/L. The reference range was not used to interpret this result as normal/abnormal . BE (test code = See_Comment [Automated message] 6851611151) The system [employer] generated this result transmit tennille reference range : -3.0 - 3.0 mEq/ L. The reference r christine was not used to interpret this result as normal/abnormal . THB (test code = 9.9 g/dL 13.5-18 L 7684128914) %O2HB (test code = 98.8 % 94-99 3538073362) %COHB ART (test code = 0.0 % 0-1.5 2478521809) %METHB ART (test code = 0.3 % 0.4-1.5 L 0451788512) VOL%O2 ART (test code = 14.4 % 15-23 L 4275799842) NA (test code = 135 mmol/L 135-145 3500663068) K+ (test code = 4.3 mmol/L 3.5-5 1683150213) AC CA IONZ (test code = 4.40 mg/dL 4.5-5.3 L 4267347631) GLUCOSE (test code = 106 mg/dL 70-110 4169938099) Lab Interpretation Abnormal (test code = 56543-6) [facility] ACUTE CARE [id number] 18:13:00 Test Item Value Reference Range Interpretation Comments PH (test code = 2) 7.35-7.45 PCO2 (test code = See_Comment H [Automat ed message] 7816525299) The system [employer] generated this result transmit tennille reference range : 35 - 45 mmHg. The reference range was not used to interpret this result as normal/abnormal . PO2 (test code = See_Comment H [Automated message] 5748147576) The system [employer] generated this result transmit tennille reference range : 80 - 100 mmHg. The reference range was not used to interpret this result as normal/abnormal . BE (test code = See_Comment [Automated message] 6773215308) The system [employer] generated this result transmit tennille reference range : -3.0 - 3.0 mEq/ L. The reference r christine was not used to interpret this result as normal/abnormal . HCO3 (test code = See_Comment H [Automate d message] 6616514894) The system [employer] generated this result transmit tennille reference range : 22 - 26 mEq/L. The reference range was not used to interpret this result as normal/abnormal . %O2HB (test code = 100.0 % 95-98 H 7025082642) NA (test code = 137 mmol/L 135-145 3697438203) K+ (test code = 4.3 mmol/L 3.5-5 3052092668) AC CA IONZ (test code = 4.40 mg/dL 4.5-5.3 L 2370836537) GLUCOSE (test code = 80 mg/dL 70-110 3054197752) AC Hematocrit (test See_Comment LL [Automa tennille message] code = 8735699494) The syste m which generated this result transmit tennille reference range : 40 - 54 VOL %. The reference range was not used to interpret this result as normal/abnormal . THB (test code = 8.2 g/dL 13.5-18 LL 5712439738) AC TC02 (test code = 28 mmol/L See_Comment H [Autom ated message] 3582136712) The system [employer] generated this result transmit tennille reference range : 23-27 mmol/L. T he reference range was not used to interpret this result as normal/abnormal . Lab Interpretation Abnormal (test code = 17113-7) [facility] [id number] 17:58:00 Test Item Value Reference Range Interpretation Comments ACTHR (test code = See_Comment [Automat ed message] 2477565973) The system [employer] generated this result transmitted ref erence range: 96 - 152 Seconds. The re ference range was not u sed to interpret this result as normal/abnor mal. Lab Interpretation (test Normal code = 09680-8) [facility]PTT2020-02-18 17:39:00 Test Item Value Reference Range Interpretation Comments APTT Patient (test code >150 See_Comment HH [Au tomated message] = 3173-2) The system [employer] generated this result transmitted ref erence range: 26 - 36 Seconds. The reference range was not used to int erpret this result as normal/abnormal . Lab Interpretation (test Abnormal code = 30066-2) [facility]IB[facility]INOGEN2020-02-18 17:32:00 Test Item Value Reference Range Interpretation Comments Fibrinogen (test code = 5120755069) 350 mg/dL 167-453 Lab Interpretation (test code = Normal 41672-8) [facility] HospitalPROTHROMBIN TIME / [id number] 17:32:00 Test Item Value Reference Range Interpretation Comments PROTIME PATIENT (test See_Comment H [Auto mated message] code = 5964-2) The system [facility] generated this result transmitted ref erence range: 10.1 - 1 2.6 Seconds. The reference range was not used to int erpret this result as normal/abnormal . INR (test code = 6301-6) Nor mal INR <1.1; Warfarin Therap eutic range 2.0 to 3. 0 or 2.5 to 3.5, dep ending upon the indica tions. Lab Interpretation (test Abnormal code = 36401-1) [facility] ACUTE CARE [id number] 17:17:00 Test Item Value Reference Range Interpretation Comments PH (test code = 2) 7.35-7.45 L PCO2 (test code = See_Comment H [Automat ed message] 1548671694) The system [facility] generated this result transmit tennille reference range : 35 - 45 mmHg. The reference range was not used to interpret this result as normal/abnormal . PO2 (test code = See_Comment H [Automated message] 7783162984) The system [facility] generated this result transmit tennille reference range : 80 - 100 mmHg. The reference range was not used to interpret this result as normal/abnormal . BE (test code = See_Comment [Automated message] 6177736639) The system [facility] generated this result transmit tennille reference range : -3.0 - 3.0 mEq/ L. The reference r christine was not used to interpret this result as normal/abnormal . HCO3 (test code = See_Comment H [Automate d message] 9392939702) The system [facility] generated this result transmit tennille reference range : 22 - 26 mEq/L. The reference range was not used to interpret this result as normal/abnormal . %O2HB (test code = 100.0 % 95-98 H 2624091398) NA (test code = 140 mmol/L 135-145 1852425624) K+ (test code = 4.2 mmol/L 3.5-5 5496704893) AC CA IONZ (test code = 4.20 mg/dL 4.5-5.3 L 1081173250) GLUCOSE (test code = 92 mg/dL 70-110 8075539663) AC Hematocrit (test See_Comment LL [Automa tennille message] code = 2144321755) The syste m which generated this result transmit tennille reference range : 40 - 54 VOL %. The reference range was not used to interpret this result as normal/abnormal . THB (test code = 7.5 g/dL 13.5-18 LL 0883743939) AC TC02 (test code = 29 mmol/L See_Comment H [Autom ated message] 0049065030) The system [employer] generated this result transmit tennille reference range : 23-27 mmol/L. T he reference range was not used to interpret this result as normal/abnormal . Lab Interpretation Abnormal (test code = 91032-4) [facility]HEMATOCRIT2020-02-18 17:16:00 Test Item Value Reference Range Interpretation Comments HCT (test code = 4544-3) 25.6 % 38.4-49.3 L Lab Interpretation (test code = Abnormal 71853-0) [facility]HEMOGLOBIN2020-02-18 17:16:00 Test Item Value Reference Range Interpretation Comments HGB (test code = 718-7) 8.0 g/dL 12.2-16.4 L Lab Interpretation (test code = Abnormal 05851-0) [facility] HospitalPLATELET [id number] 17:16:00 Test Item Value Reference Range Interpretation Comments PLT (test code = 777-3) See_Comment [Au tomated message] The system [employer] generated this result transmitted ref erence range: 150 - 32 8 10*3/?L. The re ference range was not u sed to interpret this result as normal/abnor mal. Lab Interpretation (test Normal code = 23670-4) [facility]IGH [id number] 17:04:00 Test Item Value Reference Range Interpretation Comments ACTHR (test code = See_Comment H [Automat ed message] 4390190274) The system [employer] generated this result transmitted ref erence range: 96 - 152 Seconds. The reference range was not used to int erpret this result as normal/abnormal . Lab Interpretation (test Abnormal code = 16288-6) [facility] ACUTE CARE [id number] 16:52:00 Test Item Value Reference Range Interpretation Comments PH (test code = 2) 7.35-7.45 PCO2 (test code = See_Comment [Automat ed message] 3051479033) The system [employer] generated this result transmit tennille reference range : 35 - 45 mmHg. The reference range was not used to interpret this result as normal/abnormal . PO2 (test code = See_Comment H [Automated message] 1887109198) The system [employer] generated this result transmit tennille reference range : 80 - 100 mmHg. The reference range was not used to interpret this result as normal/abnormal . BE (test code = See_Comment [Automated message] 7548786498) The system [employer] generated this result transmit tennille reference range : -3.0 - 3.0 mEq/ L. The reference r christine was not used to interpret this result as normal/abnormal . HCO3 (test code = See_Comment H [Automate d message] 0886699886) The system [employer] generated this result transmit tennille reference range : 22 - 26 mEq/L. The reference range was not used to interpret this result as normal/abnormal . %O2HB (test code = 100.0 % 95-98 H 0043301277) NA (test code = 138 mmol/L 135-145 3958496683) K+ (test code = 4.7 mmol/L 3.5-5 9610590985) AC CA IONZ (test code = 4.10 mg/dL 4.5-5.3 L 1122375846) GLUCOSE (test code = 143 mg/dL 70-110 H 4667976074) AC Hematocrit (test See_Comment LL [Automa tennille message] code = 5013649046) The syste m which generated this result transmit tennille reference range : 40 - 54 VOL %. The reference range was not used to interpret this result as normal/abnormal . THB (test code = 8.2 g/dL 13.5-18 LL 6117032983) AC TC02 (test code = 29 mmol/L See_Comment H [Autom ated message] 6222743876) The system [employer] generated this result transmit tennille reference range : 23-27 mmol/L. T he reference range was not used to interpret this result as normal/abnormal . Lab Interpretation Abnormal (test code = 16035-3) [facility] ACT HIGH [id number] 16:41:00 Test Item Value Reference Range Interpretation Comments ACTHR (test code = See_Comment H [Automat ed message] 1638155268) The system [employer] generated this result transmitted ref erence range: 96 - 152 Seconds. The reference range was not used to int erpret this result as normal/abnormal . Lab Interpretation (test Abnormal code = 09320-5) [facility] ACUTE CARE [id number] 16:20:00 Test Item Value Reference Range Interpretation Comments PH (test code = 2) 7.35-7.45 PCO2 (test code = See_Comment [Automat ed message] 7915206750) The system [employer] generated this result transmit tennille reference range : 35 - 45 mmHg. The reference range was not used to interpret this result as normal/abnormal . PO2 (test code = See_Comment H [Automated message] 1436516091) The system [employer] generated this result transmit tennille reference range : 80 - 100 mmHg. The reference range was not used to interpret this result as normal/abnormal . BE (test code = See_Comment [Automated message] 9131578482) The system [employer] generated this result transmit tennille reference range : -3.0 - 3.0 mEq/ L. The reference r christine was not used to interpret this result as normal/abnormal . HCO3 (test code = See_Comment H [Automate d message] 5520809957) The system [employer] generated this result transmit tennille reference range : 22 - 26 mEq/L. The reference range was not used to interpret this result as normal/abnormal . %O2HB (test code = 100.0 % 95-98 H 9989988584) NA (test code = 135 mmol/L 135-145 6259462600) K+ (test code = 4.9 mmol/L 3.5-5 4224931986) AC CA IONZ (test code = 3.80 mg/dL 4.5-5.3 L 9914959404) GLUCOSE (test code = 200 mg/dL 70-110 H 6579331124) AC Hematocrit (test See_Comment L [Automa tennille message] code = 9076480642) The syste m which generated this result transmit tennille reference range : 40 - 54 VOL %. The reference range was not used to interpret this result as normal/abnormal . THB (test code = 8.8 g/dL 13.5-18 L 5472051433) AC TC02 (test code = 29 mmol/L See_Comment H [Autom ated message] 7068317398) The system [employer] generated this result transmit tennille reference range : 23-27 mmol/L. T he reference range was not used to interpret this result as normal/abnormal . Lab Interpretation Abnormal (test code = 29613-4) [facility] ACT HIGH [id number] 16:14:00 Test Item Value Reference Range Interpretation Comments ACTHR (test code = See_Comment H [Automat ed message] 9161366330) The system [employer] generated this result transmitted ref erence range: 96 - 152 Seconds. The reference range was not used to int erpret this result as normal/abnormal . Lab Interpretation (test Abnormal code = 04078-9) [facility] ACUTE CARE [id number] 15:55:00 Test Item Value Reference Range Interpretation Comments PH (test code = 2) 7.35-7.45 L PCO2 (test code = See_Comment H [Automat ed message] 9494187775) The system [employer] generated this result transmit tennille reference range : 35 - 45 mmHg. The reference range was not used to interpret this result as normal/abnormal . PO2 (test code = See_Comment H [Automated message] 5679986315) The system [employer] generated this result transmit tennille reference range : 80 - 100 mmHg. The reference range was not used to interpret this result as normal/abnormal . BE (test code = See_Comment [Automated message] 6822320385) The system [employer] generated this result transmit tennille reference range : -3.0 - 3.0 mEq/ L. The reference r christine was not used to interpret this result as normal/abnormal . HCO3 (test code = See_Comment H [Automate d message] 7936340077) The system [employer] generated this result transmit tennille reference range : 22 - 26 mEq/L. The reference range was not used to interpret this result as normal/abnormal . %O2HB (test code = 100.0 % 95-98 H 9879164228) NA (test code = 135 mmol/L 135-145 2014509784) K+ (test code = 5.7 mmol/L 3.5-5 H 8646074631) AC CA IONZ (test code = 3.50 mg/dL 4.5-5.3 L 8835675494) GLUCOSE (test code = 171 mg/dL 70-110 H 7674769311) AC Hematocrit (test See_Comment L [Automa tennille message] code = 0314775497) The syste m which generated this result transmit tennille reference range : 40 - 54 VOL %. The reference range was not used to interpret this result as normal/abnormal . THB (test code = 8.8 g/dL 13.5-18 L 8875956096) AC TC02 (test code = 30 mmol/L See_Comment H [Autom ated message] 0285836807) The system [employer] generated this result transmit tennille reference range : 23-27 mmol/L. T he reference range was not used to interpret this result as normal/abnormal . Lab Interpretation Abnormal (test code = 30894-6) [facility] [id number] 15:27:00 Test Item Value Reference Range Interpretation Comments ACTHR (test code = See_Comment H [Automat ed message] 9006885295) The system [employer] generated this result transmitted ref erence range: 96 - 152 Seconds. The reference range was not used to int erpret this result as normal/abnormal . Lab Interpretation (test Abnormal code = 40201-7) [facility] ACUTE CARE [id number] 15:20:00 Test Item Value Reference Range Interpretation Comments PH (test code = 2) 7.35-7.45 PCO2 (test code = See_Comment H [Automat ed message] 6091953506) The system [employer] generated this result transmit tennille reference range : 35 - 45 mmHg. The reference range was not used to interpret this result as normal/abnormal . PO2 (test code = See_Comment H [Automated message] 4192243673) The system [employer] generated this result transmit tennille reference range : 80 - 100 mmHg. The reference range was not used to interpret this result as normal/abnormal . BE (test code = See_Comment H [Automated message] 3008331776) The system [employer] generated this result transmit tennille reference range : -3.0 - 3.0 mEq/ L. The reference r christine was not used to interpret this result as normal/abnormal . HCO3 (test code = See_Comment H [Automate d message] 4240136348) The system [employer] generated this result transmit tennille reference range : 22 - 26 mEq/L. The reference range was not used to interpret this result as normal/abnormal . %O2HB (test code = 100.0 % 95-98 H 7513141104) NA (test code = 135 mmol/L 135-145 4558553788) K+ (test code = 4.5 mmol/L 3.5-5 4654205410) AC CA IONZ (test code = 4.80 mg/dL 4.5-5.3 8545233905) GLUCOSE (test code = 118 mg/dL 70-110 H 4877548756) AC Hematocrit (test See_Comment LL [Automa tennille message] code = 4183259277) The syste m which generated this result transmit tennille reference range : 40 - 54 VOL %. The reference range was not used to interpret this result as normal/abnormal . THB (test code = 7.5 g/dL 13.5-18 LL 7440914367) AC TC02 (test code = 32 mmol/L See_Comment H [Autom ated message] 4228219626) The system [employer] generated this result transmit tennille reference range : 23-27 mmol/L. T he reference range was not used to interpret this result as normal/abnormal . Lab Interpretation Abnormal (test code = 39673-5) [facility] ACT HIGH [id number] 15:16:00 Test Item Value Reference Range Interpretation Comments ACTHR (test code = See_Comment H [Automat ed message] 2303970670) The system [employer] generated this result transmitted ref erence range: 96 - 152 Seconds. The reference range was not used to int erpret this result as normal/abnormal . Lab Interpretation (test Abnormal code = 60967-4) [facility] [id number] 15:09:00 Test Item Value Reference Range Interpretation Comments ACTHR (test code = See_Comment H [Automat ed message] 2462451698) The system [employer] generated this result transmitted ref erence range: 96 - 152 Seconds. The reference range was not used to int erpret this result as normal/abnormal . Lab Interpretation (test Abnormal code = 51281-6) [facility] (in units), 2 Units 2019-09-01 14:20:50 Test Item Value Reference Range Interpretation Comments Cross Match Result Compatible (test code = 4409) ISBT Blood Type Code (test code = 534725) Unit Blood Type (test A Pos code = 4410) Unit Number (test [id number] code = 4411) Blood Expiration Date & Time (test code = 626123) Status Information Issued (test code = 4412) Product Red Blood Cells Identification (test code = 4413) Product Code (test [id number] Performed at [facility] code = 4414) Laboratory Services - [facility] Blood [address] [place] [address]Cmsn Free: [phone] A No. [id number] [facility] [id number] 14:13:00 Test Item Value Reference Range Interpretation Comments PH (test code = 2) 7.35-7.45 PCO2 (test code = See_Comment [Automat ed message] 8978429741) The system [employer] generated this result transmit tennille reference range : 35 - 45 mmHg. The reference range was not used to interpret this result as normal/abnormal . PO2 (test code = See_Comment H [Automated message] 1005241668) The system [employer] generated this result transmit tennille reference range : 80 - 100 mmHg. The reference range was not used to interpret this result as normal/abnormal . BE (test code = See_Comment H [Automated message] 5147402872) The system [employer] generated this result transmit tennille reference range : -3.0 - 3.0 mEq/ L. The reference r christine was not used to interpret this result as normal/abnormal . HCO3 (test code = See_Comment H [Automate d message] 8194907017) The system [employer] generated this result transmit tennille reference range : 22 - 26 mEq/L. The reference range was not used to interpret this result as normal/abnormal . %O2HB (test code = 100.0 % 95-98 H 6387327592) NA (test code = 135 mmol/L 135-145 9808577324) K+ (test code = 4.2 mmol/L 3.5-5 2206699726) AC CA IONZ (test code = 4.80 mg/dL 4.5-5.3 5049041457) GLUCOSE (test code = 112 mg/dL 70-110 H 1406613506) AC Hematocrit (test See_Comment LL [Automa tennille message] code = 3584468008) The syste m which generated this result transmit tennille reference range : 40 - 54 VOL %. The reference range was not used to interpret this result as normal/abnormal . THB (test code = 6.5 g/dL 13.5-18 LL 3684806926) AC TC02 (test code = 32 mmol/L See_Comment H [Autom ated message] 3304148657) The system [employer] generated this result transmit tennille reference range : 23-27 mmol/L. T he reference range was not used to interpret this result as normal/abnormal . Lab Interpretation Abnormal (test code = 55362-0) [facility] [id number] 13:57:00 Test Item Value Reference Range Interpretation Comments ACTHR (test code = See_Comment L [Automat ed message] 5562170624) The system [employer] generated this result transmitted ref erence range: 96 - 152 Seconds. The reference range was not used to int erpret this result as normal/abnormal . Lab Interpretation (test Abnormal code = 51301-0) [facility] Packed RBC (in units), 4 Units 2019-09-01 12:50:33 Test Item Value Reference Range Interpretation Comments Cross Match Result Compatible (test code = 4409) ISBT Blood Type Code (test code = 756696) Unit Blood Type (test A Pos code = 4410) Unit Number (test [id number] code = 4411) Blood Expiration Date & Time (test code = 318167) Status Information Issued (test code = 4412) Product Red Blood Cells Identification (test code = 4413) Product Code (test [id number] Performed at [facility] code = 4414) Laboratory Services - [facility] Blood [address] [place], [place] [address]Kxvd Free: [phone] A No. [id number] [facility] GLUCOSE (AUTOMATED)2019-09-01 11:29:00 Test Item Value Reference Range Interpretation Comments POCT GLU (test code = 0749362438) 126 mg/dL 70-110 H Lab Interpretation (test code = Abnormal 42006-2) [facility] GLUCOSE (AUTOMATED)2019-09-01 09:37:00 Test Item Value Reference Range Interpretation Comments POCT GLU (test code = 4893673603) 100 mg/dL 70-110 Lab Interpretation (test code = Normal 06054-3) [facility] GLUCOSE (AUTOMATED)2019-09-01 06:00:00 Test Item Value Reference Range Interpretation Comments POCT GLU (test code = 3083019407) 90 mg/dL 70-110 Lab Interpretation (test code = Normal 74464-4) [facility] GLUCOSE (AUTOMATED)2019-09-01 02:26:00 Test Item Value Reference Range Interpretation Comments POCT GLU (test code = 9618605198) 53 mg/dL 70-110 L Lab Interpretation (test code = Abnormal 31094-6) [facility] GLUCOSE (AUTOMATED)2019-08-31 22:18:00 Test Item Value Reference Range Interpretation Comments POCT GLU (test code = [id number]) 151 mg/dL 70-110 H Lab Interpretation (test code = Abnormal 63891-0) [facility] - Type and Screen expires at midnight on the 3rd day after it was drawn. A current Type and Screen is required when RBCs are requested. For all other blood products, a Type and Screen performed during the current hospitalization i...2019-08-31 20:48:31 Test Item Value Reference Range Interpretation Comments ABO & RH (test code A Positive Performe d at [facility] = 20) Laboratory Serv [facility] [address], [place] [address] 4Toll Free: [phone] 266CLIA No. [id number] IAT (test code = Negative Performed a t [facility] 1185) Laboratory Serv ices - [facility] [address], [place] [address] 4Toll Free: [phone] 266CLIA No. [id number] [facility] (AUTOMATED)2019-08-31 18:07:00 Test Item Value Reference Range Interpretation Comments POCT GLU (test code = 0394446951) 76 mg/dL 70-110 Lab Interpretation (test code = Normal 11816-2) [facility] [id number] 16:26:00 Test Item Value Reference Range Interpretation Comments Case Report (test code Surgical Pathology ? ? = [id number]) ?Case: [id number] ? Authorizing Provider: ?Marlo Osman MD ? ? ? Collected: ? 08/26/2019 0744 ?Ordering Location: ? ? [facility] ? ? ? Received: ?08/26/2019 0923 ? Center [facility] ? Pathologist: ? Ewa Cabrera MD ? Specimens: ? A) - STOMACH, pyloric mass ? B) - ESOPHAGUS, BIOPSY @ 40 CM ? C) - ESOPHAGUS, BOIPSY @ 39 CM ? D) - ESOPHAGUS, BIOPSY @ 38 CM ? E) - ESOPHAGUS, BIOPSY @ 37 CM ? Final Diagnosis (test b4rhdAXlZTZtu8tgAKOeaI code = 2221255730) FuZzEwMzNcZnRuYmpcdWMx URcarnJfVIlyw0EsC5UoJq AwMFxhbnNpXGRlZmxhbmcx QPSzFEV8gzWmHCMoNFhjRT HiTYdwGp1fsOHhhTvlIvQr JQQhq5yqerPNgivzqPs0n1 snABCqJvB2hKXxQAhaI9ab scXwlOJhHLTcUXo3vN66FF NclC0noUIdIUanrmIvBrE3 EJuwSVRtUzI2ZGChpDUxZM KpH5hlLZSeZSjgZXHuUZvv xIVkDGG1zKcry7N7cOBqcY CxvUkcZjYbRrUgOERUr2Qq UZo0gKgiE8YvECTuYsU8aQ QgUGFyYWdyYXBoIEZvbnQ7 vQ91NInlfcK5pXHgx1Zkg5 6lm491mT4uwBIrSQU7XGXs IFSeuUDmWRJiCMJ9RSVihS ZsC9aqLBpxSF7pxivhMZY7 MFxtYXJndDcyMFxtYXJnYj PbvIPwSDRuwPcvQAqdl833 QPD0CmPcYS7cW4Qdd9V8oU 9maXRcZGVmdGFiNzIwXGZv vy6oyIEuELvyi0WtAGL5he V0nGKlmFNgHZKiGD41Thet c6QrKginJLX6TPQzknPyb9 Jyo1fgVdLlbhDdA3moT5Zh ZHJoZWFkXHBnYnJkcmZvb3 Znu5DioXMnuNn3q9gvSNTg VBQvsWdrc3rbTWY7CEIgX1 M9uNRlz4ypKShqSEHzjNB9 bcUeFVUpoXNzM3GpcG2jYF waWV3frny7a2xcLiTmRG7f rykcm9cxWYpxUSCaZZT7En NkATQwx3LanfeeAgGyb8Km zDBxQRyjI16ot574MCAjnk DaG9ewyBVkoyjuwFJscyoz BPqohyL9HQPfKYNqMJbfXS YxXGZzMjBcbGFuZzEwMzNc aGljaFxmMVxkYmNoXGYxXG koH6raGxJjRbBjZFiiHZHp BV1sU6YJCLKFTXxjZJvZK9 EEIpUFMDYMZUXFT9oEJEEG EM7XGZgljNCtDSIsZFHpQU CGCHGOUpvJKBWPHS6DQQXc Z4dBCeTjNMHCVx6SFQxmZ0 uUWXDEW1QOBFZHTVeMWYtV NCBSSSIFD1XTGVAXJAuuYE XgOXTuGRApIN1XFoxEHfMM TlZPTFZFRCBCWSBBREVOT0 9MAAauTZAxABNeNPUrNF0M IunEIhAUJ6DtAM1NM5pBST QgQlkgSElHSCBHUkFERSBE WVNQTEFTSUFccGFyICBccG SxNZFtMBGYC4WWSFnWWkbe KKAzOCLkK68xLAFLQ6BKAX jspMEcUFCsINDfDGRBF6iF DS0TZdYUMIBTZ0MnS2hNET VVMsUNT8ESPiPLNO2FXHSK JOVAYPZsABHOOaERV1UTAb KqC2xQFGVTSMZWBGHHIVVY G9DWMPcOD0izQBAxZKDqWE GuMM6ZBVHRM8NOEQMGJNVK REVOVElGSUVEXHBhclxwYX GaZz2aQGFAZYqUG4SXEVUN VCAzOSBDTSwgQklPUFNZOl xwYXJccGFyZFxwbGFpblxm LQfyhkW9INXlTWjjZNDlCO ZzMjBcbGFuZzEwMzNcaGlj aFxmMVxkYmNoXGYxXGxvY2 ntIwHtJnWhUDFsSPMkXW7v Q20QDL8PYDBgXRKQO3OVFM tNJNlqLJ5KZVPNRA3YGLBW CHFMKRsGR6lKSXRRV36UHU NHOA1QLRnUKUclDhTKVgEE NbUIS19QMDGVXOEfaEYfSS FsXHBsYWluXGYwXGZzMjRc pIsyuC1uTtPnAdJtXYwbRC 1aCGZrU2knxSNaWOGgYHJh N7byWoFvoR2dbIbyGFbyqa IwICAgICAgLSBOTyBEWVNQ TEFTSUEgSURFTlRJRklFRF vkYPUecMQhARDlKIOCM2YI PElXUpbnHOIsQpjcP11yLP JSA9TFYSonhLKgLFVjsyDp gIkbgD1tNfOxPhXgBPiuiE FpblxmMVxmczIwXGxhbmcx WPAbKPmgH4tzPfPfXQDpdH glXZjma4YxOAAaNQKvFcKy ICAgICAtIENPTFVNTkFSIE 2OU86IWVUUVBOHFQiNVJCD VElOQUwgTUVUQVBMQVNJQS ccR52AP0uSFGQSXEOZRAYQ IEJBUlJFVFMgRVNPUEhBR1 OEPRAqcdLgKGKmSH7tXs7k XQoMHMhTJ2oKEThRFF7LBN ZJRURccGFyXHBhciBFLiAg VTUOMFsNJ9QMQAEFFJCbDg BDTSwgQklPUFNZOlxwYXIg SEJoMGEdBKPJRIWJN8HJFF 9NK40WLQWQEHXATVDVVypJ MSKOS60AVKARLDHIW1bgIJ UbHTOoEAYpSF5YIBVFV7DS QVNJQSBJREVOVElGSUVEXH SreqekYNWghWvgvH4eRkZy FzLnWysuHU6bBBQaZ9lmbO JxWFEdQCCkR0dyWpIpcH1d aFxmMVxjZjJcZnMyMiBNdW DvRJHdqEPCFStwpNCveG5u BH3YLmPuAAZiPUBaVbLzRA NeUFU2HoTtTA7nmPkqnD2p PcQnKnWcVGukJN7wZQHqM4 btjVFfLVGrBXElL6vhCtCd vX0aiQsoKTabesQpZMPcnl jtFUW9j1xpwUDfDOEpgLEk FxKuHYDzTKAsp4zpVMKjzY FuZzEwMzNcZnRuYmpcdWMx LUKyMfXey8pzh743oPOtp9 eoOVNjXdC6sTIlGVZiyWxl smd6jLnzVmYsQJYrf7rqip BcZmNoYXJzZXQwIEFyaWFs E415CEIzAQxuj7woa1EyWC PumHUuq0I0YWQAULymQpFv M625m6sds3whsnZvmPC2KD WvFBT1FEzmfqThdlI4UMbi pDUkSeF2URtredWdCHjfrf GznoHbNrf4LATsT428VLK6 pLzsh7wmSSJ5ZYDjRKNcLu cqOz0nvXNxX965SVRfJYNQ EUAkeHv7HNBnxcYsdtNocX UEm704W042w2shSHVbixHl yVuYdrbqm2zbD541QRDafS VydzEyMjQwXHBhcGVyaDE1 BTHkEP9numhzVLrnQFkbAR QlkbM1WWVybVSfA4LvGKMq CM2ihzedEQY7OTkxSXCuOH C8WwAsKAXak0Pfxej7PkZw xh3jrr80STA4r8FloHaxKD L9ASH1JcWtOe2jnEXoRIRb VK7rNnQmsLRoMNFwcu35oG gwMFhhfnTmvQ8rZcKsGGFm yPAvJUGpDS4roDSgHIJrmX 5ucmxjXHBnYnJkcmhlYWRc jHihijLrGu4gsWjnYUZ3QS vvH5azfE5xLmO9AObfI8qt zL0uZFa8IKkedYG2AKWuzW 6yXF2whdjsh2hbZYbnEYqr CBUqrpG0xuQ0MDNmwDQsG6 TkbE8sUCYvZY5ozwibx4um SNS3FZyfEIPvUPC3KtVgTY Qad0Kzkey9EkTpl6UofMFg ECzuW40kv072TBKbwcXnD6 xwbGFpblxwbGFpblxmMFxm zhO8BUOpJMBeZOdjGFPpSH ZzMjBcbGFuZzEwMzNcaGlj aFxmMVxkYmNoXGYxXGxvY2 yhDkAnJ3UdWQFmHoMqxIHg HSzobFA4DSAkPKOhk18zoK y5NUKumwudf9IqQITvjLQs lAHicH2imfQxb7jvEEQlGU XpJAMjS7FpBSE3uJZyVTPk pYNxwLM4YP8xctVjAG9wHQ UgYnkgcmVzaWRlbnRzLCBm WBxpe0mgTZ7vLUPlmSeitY 3jvMN0WSNqe6lkbVSalIGg x7vih8ZnedWfKNwcDKZyFP xrPOAzSCUoIL6mIPQiaRGd yhPmu7U1JbgniBCjycoiUm amxlE8EXoayajuQGXiSWwi E0rtFfFeGGXzzDloQsarv2 NoXGYyXGZzMjhccGFyfX0= Final Diagnosis Comment g4mwmFQsJIBcbBRtWbGkSD (test code = WwNIEpi9ecQSHokVKlQkCp [id number]) MzNcZnRuYmpcdWMxXGRlZm Yik2utb250bWXwp5goCZUc FnG9rORkYBTkcTIlA204UB LkQRcdg5fol5DtNSSvoXRs u3Q4ZHEWvqfmbMv0mQlhP6 3jb4S1VqwkO7kpHSGzRFMe M6ZsXP1hTSGfGmg0JPA5YJ E4EPOtHGVkO7QiDI2cTVRw uKSvIKc8q1kqsJlvFLHpCB W7k2woVVntbyXeOW4ucc9o yXa9y9sdihOnKZQqMFXkdL TXRNPpO4BhrTifRg7olJd9 sJatWcxuHSQ5Was4WG9wsx 81avd1aUzgDCCcueanByE7 TTymRMUwyysuNMd8CSvyHS FoeWVpKLPkqJRsY7NmSEnw BA2injj3BbTsOF5froqkNC rtZSDeIXM4TnGoATYsp4Ox zpxsEqGzfw5knw56BAL5z7 VdpYluWOX7NZK7FkHlKb8k pAGiBWLmZB6oLzWchSPeWA Dnuv42eObvULlyogDpzJ6d InAiILHjzSJnNKZkDQ0gtU MhVDIktQ9lsfwpZMRrLtDq iuqnUXEqdOkogdOuJg2gxL jxWLC9ZHysZ9brwE5tChS0 VGrbQ7eylF7dGFk8FZepgZ J0OLBtaU4oRM6qzxlao3ui OSS5CMtvJNQvtvL8duVsKI ZuoFIzJ6JamU21XlIlrRFo U3IshH0fBWomWIQdkmd5Ab IuMr6obZFrnLC1QVnqKisa YWdlXHBnbmNvbnRccGduZG VjXHBsYWluXHBsYWluXGYw XZVcAeJtzGvipLjavR9cNi ZpUzFzVRumUM7bLROeQ0ro kEAxPQPnPNAdY3ymXsWpoN 9jaFxmMVxmczIwIERyLiBR kVLloLToUHWfnfwqy3UlJY XdJLEcxMljWBMbd3Rpl1Ht X1jhMR3zBEFfI0XshFZmsH AdgSutjpniIG4ma0SzEtbg zXS9DCEyaaFpQ07yM6Jmtg D5iFWyARVrAOEuxLGyum0y aXMuICBccGFyXHBhcn0= Clinical Information 1. R/O CARCINOMA2 - 5. (test code = ? R/O BARRETTS [id number]) Gross Description (test a0rocJXdMEKdhODoVfJwNP code = 1573656655) TtGOYzw9kcMWJelUVdIcNj MzNcZnRuYmpcdWMxXGRlZm Utc8jzp346qSMip9qmHIVx McF2aSPoJLBepKWsD518ML ChYEatz7alb7EzMILuaSXh n6D1CIFBhaukdRe5w1xwFj UqKiZ7fTXdDYmgD3osoxNv pNLnJIDfR7VibiYKEQJkMp c1eDqoW28ks3F5UibzQ7mh ZWQwXGdyZWVuMFxibHVlMC G0ACScCQD5YFlmhgOmecF6 ALtwoNFcRfO2VIr2l7iprN vmOARrSIL4r8yiIBibxeWt AQ5gby9hlZp2d7xwjxZiDJ AlLWVprCLROQFxJ3OdbNxc Mw0toEl8pWqoGpgqNRX6Rc u5QV7zsa11vjt1cBxuOEDq mhqtAmL0TYxoMAVjdplpQZ v2GWupMYHxgTWiQNIekLPl I1JdZMmrVZ8gfar1YgAgIS 5nmdosPXvmIWBbYKA6JoHh PPLrp9RjnccbYkShyt9pxl 39FYX1j7CqhVqjBNT9SKA0 QfTjXn1zoKVfYCKpZI2vKy EyvFEyWYUfvy10kXpzXAnt asTafK8oZoCsAFYaaWKfTE JuMI5bqXNdRWHouB1chsar XHBnYnJkcmhlYWRccGdicm LvBm5zlYtjFXW8FXfhR7my eU2cWfG4EHmcD4wzyL1wMS u3XOoxcUC7PFQobY2iKN1o kdhiq6gaQLS2ETkaKJVccf Y8zxDtTNNneJGuF5AouO47 DxDctVOjE7PxvV5iDOkvEP Xvknx5QsWrXi2mjBGqsWS5 MFxzYmtwYWdlXHBnbmNvbn RccGduZGVjXHBsYWluXHBs BKuiJMOaCRMmGaXrk4QqAE Mxk6yoLcTpt4yadBj3RVqv bFxwbGFpblxmMFxmczIwXH UkEDniJESsXEXcBwLlN4Kh G5lyHR2dDQKjttTwJGFqoY CnULXqcpJdi5VjUFikbrIb WQLgiKopRDX8nZIgYOGrDG HnUEXmKE24RILoPWqpMEWm BVQuOaEbmHbmWUgrXOn8Ot xwbGFpblxmMVxmczIwIHMg bmFtZSwgVUggbnVtYmVyIF xwbGFpblxmMVxmczIwXHU4 GaBmKCeaVBJjbQvkbT6uNb ZbCwYsBXYzzQ6lFSLfAQDx kMkwverwOL7io3LibLsrkQ 3zDzZyKvHaPZc4YZLfSCJs Gto4BVXdEOesCCGfXHAgVr GlQAXqUWAqn79kaPR9ihMt JvV1CBPinl2qeO0eQUiozk GxuThmjiYsgdEqoB0xiHLw zLWtu75kqRH8xKIcgAClYo KcO19gcaPzPAmzNdfboGPc QqyglYYmXzLkZ25cXHDsDf P4SIYsAwA9AYOnLMQsxOhd CM0hUKmnWN58DHmrOA23UE NtIGFuZCAxLjIgeCAwLjcg qVSbJsMrE90kMmCFeVFmUw OwKSXbJLR0OHXwQUZstTCr rgAaciVjoF6oVWWcPW9jPY DmwvslgUf7WKPmA9Vcg70i ZCByZXZlYWxpbmcgYSBmcm ouKvnqVZIkm6k5cX1hEVTp sKXhr7TjJeGuFC0hVJIiKF PmTTVjLKgpHFZiRbLtR52c exGvRCPwEBNhnJAiA0DrCB BhbmQgdGhlIGVudGlyZSBz qLBjzO1uynLfpuDbyIZvdO A4PEPlAZMzQHYvPYLMWBYt PNLjqgJJZKD6yU6sOJCcWR M3MHOvuwLLMQerpMTwuknp LVdrqeKxLPA7UaMcGQzoDO LmbYmgkP4hLuOhKjSmTFSW EFzjvMAwJ6QdcGPto5m1nB 9pZCBmcmFnbWVudFxwYXIg DOJsDTINWZhly5Dtj22tUV glcvypj7YiuW1kvINiaJQn CvTcZ46sivRdgJOiALG4GH ExMCwgMiBzbWFsbGVzdCBm txUraFObjJXtOKH0Vx7bpP YrCGTlGICbyxE8DOl9NGTc wjDKwULcfB2haeLMOHhvOM McR7EuvyYsCVkfSPPjhj8c bGluIGxhYmVsbGVkIHdpdG ggdGhlIHBhdGllbnRccGxh yA4uTcAyNbYtSMb5CSMaLx BcJzkyXHBsYWluXGYxXGZz DeHjpxUeDC6cRJWYRZZimC 8yBKQyBGEryMxrL9XcDNIz cJ8al7poUVUwIYWzG50mgH lyrH3lPnLmYdUgJEt3HEJz KWEcLxt2OHIrXGlaGTUsYO AaRbBmPBKzSWUog13awKV0 hvGuPiRjPFOeyz8iiW0cIJ ncyfKqvQphkaJyt6L5THHe f0C9KNDgalPxwVYdiXNpWG PdJfP7ZZQbNdJ0BKMcQbLy jJghNSTwGOJnjPQsbK4drb QudmUrxNk9MXYsGSA5sWYe oKmhQCCpXtytnXR2QIGfMn AdcsQyr6JqaKc7gPKxHMde OZXftH8nuF3tWuWqBEIkmo FObTAngS5hnyNBSXugWKCx D5LgzoZxGPgqYGZxax3ivM luIGxhYmVsbGVkIHdpdGgg dGhlIHBhdGllbnRccGxhaW 1mEwNjGtHkSTi5IXGzVfNr JzkyXHBsYWluXGYxXGZzMj PxflYyRC2dVQYVIGXgaX3s QAGoEKNmgXslV5HgEEFvhG 6xw6dcERYmYuqcE53kaJvt gF8kLcFuLwCuPGq9VHZwFZ JaYun5OBGaTHsuPYOoGNHp LaZkOHYjLZZtu43riSX0ih PgXqExZOYwja4ltZ2cZSup xxRdnGergoBmt2W3HRHyi1 J1QTSvvcLzwLYmwYHaTLZe NeA1UTHbIpD7JQLoNgZhpO gfRHLvSBSyfBHrhG3peqOp otBuqAm1OHOzJXM0dZXpjM hyHHFfDhwicVC0RPWnSqPe icFnl9OwtWn4iMEjVQbwQA ZirM0wiW5tLjObNQAofmCX kBWlgW7pfcGYTEqjHHZhN6 XllnTtTAbyYGOnpo6ikAij IGxhYmVsbGVkIHdpdGggdG qbOTNytTodlwFlxXmcfL1c IqQvYcAhOJg6DWTzGgTcLc kyXHBsYWluXGYxXGZzMjAg kvSeGX9qYJBBUWNijU1qSX GjIRJpjSzhH2IxEGJgyE9w w6zfWJKhNbxhO23ioEygyF 8yGqNcIsTdXTz5NNHtSRMx Pra0MIJzBIwtRNHrXIXyBo GwZVNfKHQaw17yxWR8nrKk FjMqCNKfpq5ieX2cBLaxlp EveJsvgfCqs6V5GSKcy9Z1 ZSBmcmFnbWVudHMgKDAuNC E9OYEmNgO3CAHrOxLcgLbl ZCTdBIQedAXgrC0sypItrg YvdKa9ZBPkLOB4kYBzrKsr JPIgPfwawJA2KKJhTkApsi Tgv5WiyMu8jNOpQZeeGLOe yP7syK2kZJYiOJEsomDGuL AtgT1juhLYWKsaFLKgA9Hk jmEcBIciOAChfv6hoCxhSX xhYmVsbGVkIHdpdGggdGhl GEQczRlifgAwgYcpbW8bJo LhPdSkQVt9CCTvOoGoVery XHBsYWluXGYxXGZzMjAgcy LvJW9gMGNCUTMmkL4iWYBn HBLtrOxyY2IsQAPbsZ0dw8 cbTALzQaxmF60zsUwhoM2s PqMcVeBgJWa1PBYgTPUiTi w9YMVrSXrdEUKaVRYtLjCu YPNaMGKke55zbIO1xpQxAd ZbYGKdhp3szB7jDHhasvXh oPgplyGnh6N5ISAhk4B2SN BmcmFnbWVudHMgKDAuNiB4 NWKoGyE0SWFdQrPihCluKL SxJUJcwDCozB5prjPocuOf wVz3BNWpAZO9eTWgfChsZV UeCygnvHZ9XONoHwTdnxZu g3JhpKt8kICzESoqCSOgyZ 8eqL9oBCTxEFKoulpuYPSj XHBsYWluXGYwXGZzMjBccG bfvW8rDkUlSfOjVGREKONf DC00ecnipbNGPSXoODT8tI 0sg0acw2EkYDBnwIW4SM89 QByvwOTgfjidLamhepV9WV gcwexbSQOnMNnlV7mqLtMl FRGlgKvpQtnii6JnYUMfAT UmGZaqpzY5RBPjxxocWDSy uAjptBoabA3uUxToPwHxQO xwbGFpblxmMVxmczIwXHBh cn0= Embedded Images (test code = 8140495055) [facility] GLUCOSE (AUTOMATED)2019-08-31 14:14:00 Test Item Value Reference Range Interpretation Comments POCT GLU (test code = 7287042691) 88 mg/dL 70-110 Lab Interpretation (test code = Normal 28264-0) [facility] METABOLIC PANEL (NA, K, CL, CO2, GLUCOSE, BUN, CREATININE, CA)2019-08-31 10:39:00 Test Item Value Reference Range Interpretation Comments NA (test code = 137 mmol/L 135-145 2128745359) K (test code = 3.8 mmol/L 3.5-5 0437425855) CL (test code = 104 mmol/L 98-108 1889561883) CO2 TOTAL (test code = 27 mmol/L 23-31 1209696384) AGAP (test code = 2-16 7349207177) BUN (test code = 25 mg/dL 7-23 H 7794988377) GLUCOSE (test code = 115 mg/dL 70-110 H 1267223846) CREATININE (test code = 1.79 mg/dL 0.6-1.25 H 7175524638) CALCIUM (test code = 7.8 mg/dL 8.6-10.6 L 2390647319) eGFR Calculation mL/min/1.73m2 (Non-) (test code = 8028353463) eGFR Calculation mL/min/1.73m2 () (test code = 4161442434) JUAN LUIS (test code = JUAN LUIS) [...] tests). Lab Interpretation Abnormal (test code = 81041-4) [facility] 10:31:00 Test Item Value Reference Range Interpretation Comments POCT GLU (test code = 4401123045) 137 mg/dL 70-110 H Lab Interpretation (test code = Abnormal 76434-4) [facility] WITH [id number] 10:30:00 Test Item Value Reference Range Interpretation [...] (test code = 35.0 fL 38.5-51.6 L 01301-0) RDW-CV (test code = 14.7 % 12.1-15.4 788-0) PLT (test code = See_Comment [Automated 777-3) message] The sy stem which generated this result transmitted reference range : 150 - 328 10*3/ ?L. The reference r christine was not used to interpret this result as normal/abnormal . MPV (test code = 10.4 fL 9.8-13 85962-1) NRBC/100 WBC (test See_Comment [Automat ed code = 0930912409) message] The system which generated this result transmitted reference range : 0.0 - 10.0 /100 WBCs. The refer ence range was not u sed to interpret th is result as normal/abnormal . NRBC x10^3 (test code <0.01 See_Comment [Auto mated = 9382762421) message] The s ystem which generated this result transmitted reference range : 10*3/?L. The reference range was not used to interpret this result as normal/abnormal . GRAN MAT (NEUT) % 60.5 % (test code = 770-8) IMM GRAN % (test code 0.20 % = 8566565541) LYMPH % (test code = 24.9 % 736-9) MONO % (test code = 9.6 % 5905-5) EOS % (test code = 4.1 % 713-8) BASO % (test code = 0.7 % 706-2) GRAN MAT x10^3(ANC) 5.16 10*3/uL 1.99-6.95 (test code = 8655130127) IMM GRAN x10^3 (test <0.03 0-0.06 code = 9982837218) LYMPH x10^3 (test code 2.13 10*3/uL 1.09-3.23 = 731-0) MONO x10^3 (test code 0.82 10*3/uL 0.36-1.02 = 742-7) EOS x10^3 (test code = 0.35 10*3/uL 0.06-0.53 711-2) BASO x10^3 (test code 0.06 10*3/uL 0.01-0.09 = 704-7) Lab Interpretation Abnormal (test code = 20486-4) [facility] GLUCOSE (AUTOMATED)2019-08-31 06:17:00 Test Item Value Reference Range Interpretation Comments POCT GLU (test code = 4226164701) 177 mg/dL 70-110 H Lab Interpretation (test code = Abnormal 01946-0) [facility] GLUCOSE (AUTOMATED)2019-08-31 02:18:00 Test Item Value Reference Range Interpretation Comments POCT GLU (test code = 0156153427) 86 mg/dL 70-110 Lab Interpretation (test code = Normal 91874-4) [facility] GLUCOSE (AUTOMATED)2019-08-30 21:57:00 Test Item Value Reference Range Interpretation Comments POCT GLU (test code = 0125661705) 140 mg/dL 70-110 H Lab Interpretation (test code = Abnormal 63785-4) [facility] GLUCOSE (AUTOMATED)2019-08-30 18:10:00 Test Item Value Reference Range Interpretation Comments POCT GLU (test code = 0411272001) 95 mg/dL 70-110 Lab Interpretation (test code = Normal 50603-3) [facility] GLUCOSE (AUTOMATED)2019-08-30 14:11:00 Test Item Value Reference Range Interpretation Comments POCT GLU (test code = 5210711682) 123 mg/dL 70-110 H Lab Interpretation (test code = Abnormal 89837-7) [facility] GLUCOSE (AUTOMATED)2019-08-30 11:04:00 Test Item Value Reference Range Interpretation Comments POCT GLU (test code = 3010884319) 136 mg/dL 70-110 H Lab Interpretation (test code = Abnormal 80427-4) [facility] GLUCOSE (AUTOMATED)2019-08-30 05:39:00 Test Item Value Reference Range Interpretation Comments POCT GLU (test code = 5124069637) 172 mg/dL 70-110 H Lab Interpretation (test code = Abnormal 73455-4) [facility] GLUCOSE (AUTOMATED)2019-08-30 04:19:00 Test Item Value Reference Range Interpretation Comments POCT GLU (test code = 4741116604) 198 mg/dL 70-110 H Lab Interpretation (test code = Abnormal 43279-3) [facility] GLUCOSE (AUTOMATED)2019-08-29 18:14:00 Test Item Value Reference Range Interpretation Comments POCT GLU (test code = 8160155913) 93 mg/dL 70-110 Lab Interpretation (test code = Normal 69954-0) [facility] GLUCOSE (AUTOMATED)2019-08-29 14:19:00 Test Item Value Reference Range Interpretation Comments POCT GLU (test code = 7343833814) 70 mg/dL 70-110 Lab Interpretation (test code = Normal 77153-9) [facility]. METABOLIC PANEL (74922)2019-08-29 09:59:00 Test Item Value Reference Range Interpretation Comments NA (test code = 136 mmol/L 135-145 0186786465) K (test code = 3.5 mmol/L 3.5-5 1630977096) CL (test code = 105 mmol/L 98-108 4366999473) CO2 TOTAL (test code = 26 mmol/L 23-31 0570871224) AGAP (test code = 2-16 4765724065) BUN (test code = 21 mg/dL 7-23 9187449547) GLUCOSE (test code = 58 mg/dL 70-110 L 2589711903) CREATININE (test code = 0.95 mg/dL 0.6-1.25 0320899818) TOTAL BILI (test code = 0.2 mg/dL 0.1-1.4 2724565430) CALCIUM (test code = 7.4 mg/dL 8.6-10.6 L 6179453192) T PROTEIN (test code = 5.2 g/dL 6.3-8.2 L 0021395513) ALBUMIN (test code = 2.4 g/dL 3.5-5 L 8003573556) ALK PHOS (test code = 67 U/L 34-122 7558567115) ALTv (test code = 15 U/L 5-50 1742-6) AST(SGOT) (test code = 28 U/L 13-40 4229441864) eGFR Calculation mL/min/1.73m2 (Non-) (test code = 4142216673) eGFR Calculation mL/min/1.73m2 () (test code = 2537121481) JUAN LUIS (test code = JUAN LUIS) [...] tests). Lab Interpretation Abnormal (test code = 84417-9) [facility] GLUCOSE (AUTOMATED)2019-08-29 09:59:00 Test Item Value Reference Range Interpretation Comments POCT GLU (test code = 9493633912) 130 mg/dL 70-110 H Lab Interpretation (test code = Abnormal 15108-3) [facility] GLUCOSE (AUTOMATED)2019-08-29 06:21:00 Test Item Value Reference Range Interpretation Comments POCT GLU (test code = 2669124472) 79 mg/dL 70-110 Lab Interpretation (test code = Normal 38113-0) [facility] GLUCOSE (AUTOMATED)2019-08-29 03:53:00 Test Item Value Reference Range Interpretation Comments POCT GLU (test code = 2846766930) 157 mg/dL 70-110 H Lab Interpretation (test code = Abnormal 60552-4) [facility] ABDOMEN LIMITED WITH [id number] 00:28:331. Slightly enlarged liver with increased and [...] disease.4. Right renal cyst5. [facility]2019-08[facility]28 22:47:00 Test Item Value Reference Range Interpretation Comments POCT GLU (test code = 6115255177) 139 mg/dL 70-110 H Lab Interpretation (test code = Abnormal 89885-3) [facility] GLUCOSE (AUTOMATED)2019-08-28 18:56:00 Test Item Value Reference Range Interpretation Comments POCT GLU (test code = 0436729958) 90 mg/dL 70-110 Lab Interpretation (test code = Normal 28592-0) [facility] (NA, K, CL, CO2, GLUCOSE, BUN, CREATININE, CA)2019-08-28 14:50:00 Test Item Value Reference Range Interpretation Comments NA (test code = 136 mmol/L 135-145 1034680698) K (test code = 4.1 mmol/L 3.5-5 6970036014) CL (test code = 105 mmol/L 98-108 7846546508) CO2 TOTAL (test code = 27 mmol/L 23-31 6573377133) AGAP (test code = 2-16 5564579774) BUN (test code = 26 mg/dL 7-23 H 5749233507) GLUCOSE (test code = 78 mg/dL 70-110 1759766032) CREATININE (test code = 1.06 mg/dL 0.6-1.25 6035702153) CALCIUM (test code = 7.5 mg/dL 8.6-10.6 L 6607979264) eGFR Calculation mL/min/1.73m2 (Non-) (test code = 6879147787) eGFR Calculation mL/min/1.73m2 () (test code = 4116267332) JUAN LUIS (test code = JUAN LUIS) [...] tests). Lab Interpretation Abnormal (test code = 07141-4) [facility] 14:50:00 Test Item Value Reference Range Interpretation Comments MAGNESIUM (test code = 6388268068) 2.3 mg/dL 1.7-2.4 Lab Interpretation (test code = Normal 27569-4) [facility] [id number] 14:45:00 Test Item Value Reference Range Interpretation [...] (test code = 35.3 fL 38.5-51.6 L 67321-9) RDW-CV (test code = 14.6 % 12.1-15.4 788-0) PLT (test code = See_Comment [Automated 777-3) message] The sy stem which generated this result transmitted reference range : 150 - 328 10*3/ ?L. The reference r christine was not used to interpret this result as normal/abnormal . MPV (test code = 10.9 fL 9.8-13 44224-3) NRBC/100 WBC (test See_Comment [Automat ed code = 4889959453) message] The system which generated this result transmitted reference range : 0.0 - 10.0 /100 WBCs. The refer ence range was not u sed to interpret th is result as normal/abnormal . NRBC x10^3 (test code <0.01 See_Comment [Auto mated = 8475083585) message] The s ystem which generated this result transmitted reference range : 10*3/?L. The reference range was not used to interpret this result as normal/abnormal . GRAN MAT (NEUT) % 63.4 % (test code = 770-8) IMM GRAN % (test code 0.50 % = 3943984085) LYMPH % (test code = 21.1 % 736-9) MONO % (test code = 10.4 % 5905-5) EOS % (test code = 4.1 % 713-8) BASO % (test code = 0.5 % 706-2) GRAN MAT x10^3(ANC) 4.14 10*3/uL 1.99-6.95 (test code = 3289701644) IMM GRAN x10^3 (test 0.03 10*3/uL 0-0.06 code = 2303872391) LYMPH x10^3 (test code 1.38 10*3/uL 1.09-3.23 = 731-0) MONO x10^3 (test code 0.68 10*3/uL 0.36-1.02 = 742-7) EOS x10^3 (test code = 0.27 10*3/uL 0.06-0.53 711-2) BASO x10^3 (test code 0.03 10*3/uL 0.01-0.09 = 704-7) Lab Interpretation Abnormal (test code = 40415-8) [facility] GLUCOSE (AUTOMATED)2019-08-28 14:07:00 Test Item Value Reference Range Interpretation Comments POCT GLU (test code = 9298710541) 134 mg/dL 70-110 H Lab Interpretation (test code = Abnormal 62612-1) [facility] GLUCOSE (AUTOMATED)2019-08-28 07:20:00 Test Item Value Reference Range Interpretation Comments POCT GLU (test code = 5815698742) 144 mg/dL 70-110 H Lab Interpretation (test code = Abnormal 34428-7) [facility] GLUCOSE (AUTOMATED)2019-08-28 03:13:00 Test Item Value Reference Range Interpretation Comments POCT GLU (test code = 3233950174) 203 mg/dL 70-110 H Lab Interpretation (test code = Abnormal 11040-8) [facility] GLUCOSE (AUTOMATED)2019-08-27 22:32:00 Test Item Value Reference Range Interpretation Comments POCT GLU (test code = 9659413965) 96 mg/dL 70-110 Lab Interpretation (test code = Normal 16212-4) [facility] THORAX WO [id number] 18:39:06 Bilateral diffuse interlobular septal thickening, bilateral [...] for increased pulmonaryarterial pressure, echocardiographic evaluation is recommended.[facility] GLUCOSE (AUTOMATED)2019-08-27 17:57:00 Test Item Value Reference Range Interpretation Comments POCT GLU (test code = 8091949729) 155 mg/dL 70-110 H Lab Interpretation (test code = Abnormal 36009-9) [facility] GLUCOSE (AUTOMATED)2019-08-27 14:13:00 Test Item Value Reference Range Interpretation Comments POCT GLU (test code = 9374902850) 151 mg/dL 70-110 H Lab Interpretation (test code = Abnormal 18996-0) [facility] GLUCOSE (AUTOMATED)2019-08-27 10:41:00 Test Item Value Reference Range Interpretation Comments POCT GLU (test code = 212 mg/dL 70-110 H Notifi ed Provider 8734071108) Lab Interpretation (test Abnormal code = 39899-9) [facility] 05:59:00 Test Item Value Reference Range Interpretation Comments POCT GLU (test code = 160 mg/dL 70-110 H Notifi ed Provider [id number]) Lab Interpretation (test Abnormal code = 19635-3) [facility] 04:13:00 Test Item Value Reference Range Interpretation Comments POCT GLU (test code = 0117974817) 112 mg/dL 70-110 H Lab Interpretation (test code = Abnormal 84706-7) [facility] 02:40:00 Test Item Value Reference Range Interpretation Comments POCT GLU (test code = 184 mg/dL 70-110 H Notifi ed Provider [id number]) Lab Interpretation (test Abnormal code = 23858-2) [facility] GLUCOSE (AUTOMATED)2019-08-26 23:44:00 Test Item Value Reference Range Interpretation Comments POCT GLU (test code = 3292713732) 263 mg/dL 70-110 H Lab Interpretation (test code = Abnormal 27585-0) [facility] GLUCOSE (AUTOMATED)2019-08-26 23:02:00 Test Item Value Reference Range Interpretation Comments POCT GLU (test code = 6054084925) 246 mg/dL 70-110 H Lab Interpretation (test code = Abnormal 46507-5) [facility] Arterial Blood Gas.2019-08-26 20:26:00 Test Item Value Reference Range Interpretation Comments PH (test code = 2) 7.35-7.45 H PCO2 (test code = See_Comment [Automat ed message] 0687932748) The system [employer] generated this result transmitted ref erence range: 35 - 45 mmHg. The reference r christine was not used to interpret this result as normal/abnor mal. PO2 (test code = See_Comment LL [Automated message] 7655033412) The system [employer] generated this result transmitted ref erence range: 80 - 100 mmHg. The reference r christine was not used to interpret this result as normal/abnor mal. HCO3 (test code = See_Comment H [Automate d message] 8116834360) The system [employer] generated this result transmitted ref erence range: 22 - 26 mEq/L. The reference r christine was not used to interpret this result as normal/abnor mal. BE (test code = See_Comment H [Automated message] 3838826560) The system [employer] generated this result transmitted ref erence range: -3.0 - 3 .0 mEq/L. The refe rence range was not u sed to interpret this result as normal/abnor mal. Lab Interpretation (test Abnormal code = 02257-4) [facility] GLUCOSE (AUTOMATED)2019-08-26 18:12:00 Test Item Value Reference Range Interpretation Comments POCT GLU (test code = 2245489923) 172 mg/dL 70-110 H Lab Interpretation (test code = Abnormal 56305-5) [facility] GLUCOSE (AUTOMATED)2019-08-26 15:33:00 Test Item Value Reference Range Interpretation Comments POCT GLU (test code = 3720708488) 86 mg/dL 70-110 Lab Interpretation (test code = Normal 62632-1) [facility] GLUCOSE (AUTOMATED)2019-08-26 11:57:00 Test Item Value Reference Range Interpretation Comments POCT GLU (test code = 0390246481) 86 mg/dL 70-110 Lab Interpretation (test code = Normal 61024-2) [facility] GLUCOSE (AUTOMATED)2019-08-25 21:38:00 Test Item Value Reference Range Interpretation Comments POCT GLU (test code = 7656068182) 89 mg/dL 70-110 Lab Interpretation (test code = Normal 05149-3) [facility] GLUCOSE (AUTOMATED)2019-08-25 20:46:00 Test Item Value Reference Range Interpretation Comments POCT GLU (test code = 0192754691) 75 mg/dL 70-110 Lab Interpretation (test code = Normal 66704-5) [facility] GLUCOSE (AUTOMATED)2019-08-25 20:46:00 Test Item Value Reference Range Interpretation Comments POCT GLU (test code = 0980049004) 76 mg/dL 70-110 Lab Interpretation (test code = Normal 17245-3) [facility] GLUCOSE (AUTOMATED)2019-08-25 20:12:00 Test Item Value Reference Range Interpretation Comments POCT GLU (test code = 8358695801) 83 mg/dL 70-110 Lab Interpretation (test code = Normal 55583-3) [facility] GLUCOSE (AUTOMATED)2019-08-25 19:45:00 Test Item Value Reference Range Interpretation Comments POCT GLU (test code = 7290162452) 96 mg/dL 70-110 Lab Interpretation (test code = Normal 21051-5) [facility] GLUCOSE (AUTOMATED)2019-08-25 19:02:00 Test Item Value Reference Range Interpretation Comments POCT GLU (test code = 7766927015) 87 mg/dL 70-110 Lab Interpretation (test code = Normal 15911-8) [facility] GLUCOSE (AUTOMATED)2019-08-25 19:02:00 Test Item Value Reference Range Interpretation Comments POCT GLU (test code = 8667627866) 78 mg/dL 70-110 Lab Interpretation (test code = Normal 72259-5) [facility] GLUCOSE (AUTOMATED)2019-08-25 18:28:00 Test Item Value Reference Range Interpretation Comments POCT GLU (test code = 1687804124) 42 mg/dL 70-110 LL Lab Interpretation (test code = Abnormal 16147-3) [facility] GLUCOSE (AUTOMATED)2019-08-25 18:28:00 Test Item Value Reference Range Interpretation Comments POCT GLU (test code = 2411787498) 44 mg/dL 70-110 LL Lab Interpretation (test code = Abnormal 34790-2) [facility] GLUCOSE (AUTOMATED)2019-08-25 18:28:00 Test Item Value Reference Range Interpretation Comments POCT GLU (test code = 2176773882) 77 mg/dL 70-110 Lab Interpretation (test code = Normal 12685-5) [facility] GLUCOSE (AUTOMATED)2019-08-25 18:28:00 Test Item Value Reference Range Interpretation Comments POCT GLU (test code = 8626552789) 110 mg/dL 70-110 Lab Interpretation (test code = Normal 51439-3) [facility] METABOLIC PANEL (NA, K, CL, CO2, GLUCOSE, BUN, CREATININE, CA)2019-08-25 10:57:00 Test Item Value Reference Range Interpretation Comments NA (test code = 136 mmol/L 135-145 5269402871) K (test code = 4.5 mmol/L 3.5-5 2315490443) CL (test code = 100 mmol/L 98-108 3859240540) CO2 TOTAL (test code = 30 mmol/L 23-31 7342216099) AGAP (test code = 2-16 3584987888) BUN (test code = 38 mg/dL 7-23 H 9312854287) GLUCOSE (test code = 89 mg/dL 70-110 4627713069) CREATININE (test code = 1.46 mg/dL 0.6-1.25 H 9340597988) CALCIUM (test code = 7.7 mg/dL 8.6-10.6 L 1784950434) eGFR Calculation mL/min/1.73m2 (Non-) (test code = 6372162342) eGFR Calculation mL/min/1.73m2 () (test code = 8395550425) JUAN LUIS (test code = JUAN LUIS) [...] tests). Lab Interpretation Abnormal (test code = 41392-4) [facility] WITH [id number] 10:46:00 Test Item Value Reference Range Interpretation [...] (test code = 34.5 fL 38.5-51.6 L 36732-1) RDW-CV (test code = 14.7 % 12.1-15.4 788-0) PLT (test code = See_Comment [Automated 777-3) message] The sy stem which generated this result transmitted reference range : 150 - 328 10*3/ ?L. The reference r christine was not used to interpret this result as normal/abnormal . MPV (test code = 11.7 fL 9.8-13 95360-5) NRBC/100 WBC (test See_Comment [Automat ed code = 1220553232) message] The system which generated this result transmitted reference range : 0.0 - 10.0 /100 WBCs. The refer ence range was not u sed to interpret th is result as normal/abnormal . NRBC x10^3 (test code <0.01 See_Comment [Auto mated = 3638413470) message] The s ystem which generated this result transmitted reference range : 10*3/?L. The reference range was not used to interpret this result as normal/abnormal . GRAN MAT (NEUT) % 63.6 % (test code = 770-8) IMM GRAN % (test code 0.30 % = 2251063650) LYMPH % (test code = 19.7 % 736-9) MONO % (test code = 12.6 % 5905-5) EOS % (test code = 3.5 % 713-8) BASO % (test code = 0.3 % 706-2) GRAN MAT x10^3(ANC) 5.60 10*3/uL 1.99-6.95 (test code = 2923636381) IMM GRAN x10^3 (test 0.03 10*3/uL 0-0.06 code = 0133084267) LYMPH x10^3 (test code 1.74 10*3/uL 1.09-3.23 = 731-0) MONO x10^3 (test code 1.11 10*3/uL 0.36-1.02 H = 742-7) EOS x10^3 (test code = 0.31 10*3/uL 0.06-0.53 711-2) BASO x10^3 (test code 0.03 10*3/uL 0.01-0.09 = 704-7) Lab Interpretation Abnormal (test code = 01739-8) [facility] [id number] 05:01:32Tip of the nasogastric tube is in [...] of the nasogastric tube is in appropriate positionUnUT [facility] (AUTOMATED)2019-08-25 02:05:00 Test Item Value Reference Range Interpretation Comments POCT GLU (test code = 75 mg/dL 70-110 Notifi ed Provider [id number]) Lab Interpretation (test Normal code = 41292-8) [facility] GLUCOSE (AUTOMATED)2019-08-24 22:24:00 Test Item Value Reference Range Interpretation Comments POCT GLU (test code = 9583228991) 134 mg/dL 70-110 H Lab Interpretation (test code = Abnormal 55946-2) [facility] GLUCOSE (AUTOMATED)2019-08-24 18:27:00 Test Item Value Reference Range Interpretation Comments POCT GLU (test code = 3525737239) 137 mg/dL 70-110 H Lab Interpretation (test code = Abnormal 32370-9) [facility] GLUCOSE (AUTOMATED)2019-08-24 14:05:00 Test Item Value Reference Range Interpretation Comments POCT GLU (test code = 5520112809) 178 mg/dL 70-110 H Lab Interpretation (test code = Abnormal 09232-2) [facility] (NA, K, CL, CO2, GLUCOSE, BUN, CREATININE, CA)2019-08-24 12:33:00 Test Item Value Reference Range Interpretation Comments NA (test code = 133 mmol/L 135-145 L 1977757611) K (test code = 4.3 mmol/L 3.5-5 8807596918) CL (test code = 98 mmol/L 98-108 2343853617) CO2 TOTAL (test code = 28 mmol/L 23-31 9172812923) AGAP (test code = 2-16 5955425190) BUN (test code = 39 mg/dL 7-23 H 7575668369) GLUCOSE (test code = 122 mg/dL 70-110 H 4184567751) CREATININE (test code = 1.51 mg/dL 0.6-1.25 H 5060957404) CALCIUM (test code = 7.8 mg/dL 8.6-10.6 L 7538687519) eGFR Calculation mL/min/1.73m2 (Non-) (test code = 8549309120) eGFR Calculation mL/min/1.73m2 () (test code = 8387708057) JUAN LUIS (test code = JUAN LUIS) [...] tests). Lab Interpretation Abnormal (test code = 57937-2) [facility] WITH [id number] 12:27:00 Test Item Value Reference Range Interpretation [...] (test code = 34.7 fL 38.5-51.6 L 84339-0) RDW-CV (test code = 15.0 % 12.1-15.4 788-0) PLT (test code = See_Comment [Automated 777-3) message] The sy stem which generated this result transmitted reference range : 150 - 328 10*3/ ?L. The reference r christine was not used to interpret this result as normal/abnormal . MPV (test code = 11.3 fL 9.8-13 04540-2) IPF % (test code = 4.1 % 1.2-10.7 Platelet count 6398729503) measured by fluorescence method. NRBC/100 WBC (test See_Comment [Automat ed code = 9924968170) message] The system which generated this result transmitted reference range : 0.0 - 10.0 /100 WBCs. The refer ence range was not u sed to interpret th is result as normal/abnormal . NRBC x10^3 (test code <0.01 See_Comment [Auto mated = 6567182769) message] The s ystem which generated this result transmitted reference range : 10*3/?L. The reference range was not used to interpret this result as normal/abnormal . GRAN MAT (NEUT) % 71.8 % (test code = 770-8) IMM GRAN % (test code 0.40 % = 1749200249) LYMPH % (test code = 13.7 % 736-9) MONO % (test code = 11.2 % 5905-5) EOS % (test code = 2.6 % 713-8) BASO % (test code = 0.3 % 706-2) GRAN MAT x10^3(ANC) 6.76 10*3/uL 1.99-6.95 (test code = 6237920997) IMM GRAN x10^3 (test 0.04 10*3/uL 0-0.06 code = 0745060681) LYMPH x10^3 (test code 1.29 10*3/uL 1.09-3.23 = 731-0) MONO x10^3 (test code 1.05 10*3/uL 0.36-1.02 H = 742-7) EOS x10^3 (test code = 0.24 10*3/uL 0.06-0.53 711-2) BASO x10^3 (test code 0.03 10*3/uL 0.01-0.09 = 704-7) Lab Interpretation Abnormal (test code = 61323-0) [facility] GLUCOSE (AUTOMATED)2019-08-24 10:30:00 Test Item Value Reference Range Interpretation Comments POCT GLU (test code = 5519766913) 176 mg/dL 70-110 H Lab Interpretation (test code = Abnormal 92850-7) [facility] GLUCOSE (AUTOMATED)2019-08-24 05:45:00 Test Item Value Reference Range Interpretation Comments POCT GLU (test code = 3509564167) 187 mg/dL 70-110 H Lab Interpretation (test code = Abnormal 26435-7) [facility] GLUCOSE (AUTOMATED)2019-08-24 01:54:00 Test Item Value Reference Range Interpretation Comments POCT GLU (test code = 6839644903) 156 mg/dL 70-110 H Lab Interpretation (test code = Abnormal 65707-6) [facility] GLUCOSE (AUTOMATED)2019-08-23 23:09:00 Test Item Value Reference Range Interpretation Comments POCT GLU (test code = 7233773345) 110 mg/dL 70-110 Lab Interpretation (test code = Normal 85085-8) [facility] Hospital[facility]OTAL IRON BINDING [id number] 22:07:00 Test Item Value Reference Range Interpretation Comments TIBC (test code = 9123677336) 230 ug/dL 250-410 L % FE SAT (test code = 7857847842) 15 % 20-50 L Lab Interpretation (test code = Abnormal 88439-8) [facility]ON2020-02-09 21:58:00 Test Item Value Reference Range Interpretation Comments IRON (test code = 7460316156) 35 ug/dL 50-160 L Lab Interpretation (test code = Abnormal 64224-9) [facility] GLUCOSE (AUTOMATED)2019-08-23 18:08:00 Test Item Value Reference Range Interpretation Comments POCT GLU (test code = 8898820849) 78 mg/dL 70-110 Lab Interpretation (test code = Normal 15884-9) [facility] GLUCOSE (AUTOMATED)2019-08-23 14:32:00 Test Item Value Reference Range Interpretation Comments POCT GLU (test code = 5723848381) 126 mg/dL 70-110 H Lab Interpretation (test code = Abnormal 84085-5) [facility] GLUCOSE (AUTOMATED)2019-08-23 11:58:00 Test Item Value Reference Range Interpretation Comments POCT GLU (test code = 105 mg/dL 70-110 Notifi ed Provider [id number]) Lab Interpretation (test Normal code = 69728-8) [facility]AL [id number] 11:01:00 Test Item Value Reference Range Interpretation Comments NT-proBNP (test code 7950 pg/mL See_Comment H [Autom ated = 9314782551) message] The system which generated this result transmitted reference range : <=125. The reference range was not used to interpret this result as normal/abnormal . JUAN LUIS (test code = JUAN LUIS) Biotin has been reported to cause a negative bias, interpret results relative to patient's use of biotin. Lab Interpretation Abnormal (test code = 04308-3) [facility] METABOLIC PANEL (NA, K, CL, CO2, GLUCOSE, BUN, CREATININE, CA)2019-08-23 10:52:00 Test Item Value Reference Range Interpretation Comments NA (test code = 135 mmol/L 135-145 3703604023) K (test code = 4.5 mmol/L 3.5-5 3617219950) CL (test code = 101 mmol/L 98-108 8109288676) CO2 TOTAL (test code = 29 mmol/L 23-31 2778617819) AGAP (test code = 2-16 4127037702) BUN (test code = 36 mg/dL 7-23 H 4536496514) GLUCOSE (test code = 57 mg/dL 70-110 L 7180071834) CREATININE (test code = 1.61 mg/dL 0.6-1.25 H 9666115855) CALCIUM (test code = 7.8 mg/dL 8.6-10.6 L 0789805493) eGFR Calculation mL/min/1.73m2 (Non-) (test code = 7715218542) eGFR Calculation mL/min/1.73m2 () (test code = 8632739558) JUAN LUIS (test code = JUAN LUIS) [...] tests). Lab Interpretation Abnormal (test code = 17022-8) [facility]MAGN[facility]UM2020-02-09 10:52:00 Test Item Value Reference Range Interpretation Comments MAGNESIUM (test code = 7055664090) 1.9 mg/dL 1.7-2.4 Lab Interpretation (test code = Normal 72329-9) [facility] WITH [id number] 10:48:00 Test Item Value Reference Range Interpretation Comments WBC (test code = See_Comment [Automated 6690-2) message] The sy stem which generated this result transmitted reference range : 4.20 - 10.70 10*3/?L. The reference range was not used to interpret this result as normal/abnormal . RBC (test code = See_Comment L [Automated 889-8) message] The sy stem which generated this [...] (test code = 34.9 fL 38.5-51.6 L 43074-1) RDW-CV (test code = 14.8 % 12.1-15.4 788-0) PLT (test code = See_Comment [Automated 777-3) message] The sy stem which generated this result transmitted reference range : 150 - 328 10*3/ ?L. The reference r christine was not used to interpret this result as normal/abnormal . MPV (test code = 11.8 fL 9.8-13 26378-4) IPF % (test code = 3.8 % 1.2-10.7 Platelet count 1433521489) measured by fluorescence method. NRBC/100 WBC (test See_Comment [Automat ed code = 7631540551) message] The system which generated this result transmitted reference range : 0.0 - 10.0 /100 WBCs. The refer ence range was not u sed to interpret th is result as normal/abnormal . NRBC x10^3 (test code <0.01 See_Comment [Auto mated = 0541553584) message] The s ystem which generated this result transmitted reference range : 10*3/?L. The reference range was not used to interpret this result as normal/abnormal . GRAN MAT (NEUT) % 70.8 % (test code = 770-8) IMM GRAN % (test code 0.30 % = 4961037264) LYMPH % (test code = 13.9 % 736-9) MONO % (test code = 10.9 % 5905-5) EOS % (test code = 3.7 % 713-8) BASO % (test code = 0.4 % 706-2) GRAN MAT x10^3(ANC) 6.76 10*3/uL 1.99-6.95 (test code = 2615481876) IMM GRAN x10^3 (test 0.03 10*3/uL 0-0.06 code = 2509284389) LYMPH x10^3 (test code 1.33 10*3/uL 1.09-3.23 = 731-0) MONO x10^3 (test code 1.04 10*3/uL 0.36-1.02 H = 742-7) EOS x10^3 (test code = 0.35 10*3/uL 0.06-0.53 711-2) BASO x10^3 (test code 0.04 10*3/uL 0.01-0.09 = 704-7) Lab Interpretation Abnormal (test code = 35652-2) [facility] GLUCOSE (AUTOMATED)2019-08-23 06:29:00 Test Item Value Reference Range Interpretation Comments POCT GLU (test code = 116 mg/dL 70-110 H Notifi ed Provider [id number]) Lab Interpretation (test Abnormal code = 87951-3) [facility] GLUCOSE (AUTOMATED)2019-08-23 01:54:00 Test Item Value Reference Range Interpretation Comments POCT GLU (test code = 135 mg/dL 70-110 H Notifi ed Provider [id number]) Lab Interpretation (test Abnormal code = 59458-8) [facility] GLUCOSE (AUTOMATED)2019-08-22 23:32:00 Test Item Value Reference Range Interpretation Comments POCT GLU (test code = 6279291237) 109 mg/dL 70-110 Lab Interpretation (test code = Normal 61222-0) [facility] / MSSA Screen by Britney [id number] 17:55:00 Test Item Value Reference Range Interpretation Comments MSSA Screen by Britney MTZ (test code Negative Negative = 06949-6) MRSA/MSSA Positive? (test code = No No [id number]) Lab Interpretation (test code = Normal 51236-0) [facility] GLUCOSE (AUTOMATED)2019-08-22 17:43:00 Test Item Value Reference Range Interpretation Comments POCT GLU (test code = 7140746020) 139 mg/dL 70-110 H Lab Interpretation (test code = Abnormal 28826-1) [facility] [id number] 16:53:00 Test Item Value Reference Range Interpretation Comments NT-proBNP (test code 24743 pg/mL See_Comment H [Autom ated = 1772141098) message] The system which generated this result transmitted reference range : <=125. The reference range was not used to interpret this result as normal/abnormal . JUAN LUIS (test code = JUAN LUIS) Biotin has been reported to cause a negative bias, interpret results relative to patient's use of biotin. Lab Interpretation Abnormal (test code = 00291-0) [facility] 1 [id number] 10:34:46Edema type pattern. CLINICAL HISTORY:SOB COMPARISON:None TECHNIQUE:Portable [...] zone. No pneumothorax. Possiblesmall effusions.IMPRESSIONEdema type pattern. [facility]2019-08-22 10:03:00 Test Item Value Reference Range Interpretation Comments POCT GLU (test code = 118 mg/dL 70-110 H Notifi ed Provider [id number]) Lab Interpretation (test Abnormal code = 02449-3) [facility] (NA, K, CL, CO2, GLUCOSE, BUN, CREATININE, CA)2019-08-22 08:20:00 Test Item Value Reference Range Interpretation Comments NA (test code = 136 mmol/L 135-145 4422284386) K (test code = 4.8 mmol/L 3.5-5 6896315623) CL (test code = 102 mmol/L 98-108 0704741640) CO2 TOTAL (test code = 30 mmol/L 23-31 1116969803) AGAP (test code = 2-16 0393783914) BUN (test code = 34 mg/dL 7-23 H 5172655210) GLUCOSE (test code = 67 mg/dL 70-110 L 4144584495) CREATININE (test code = 1.37 mg/dL 0.6-1.25 H 0878950401) CALCIUM (test code = 8.4 mg/dL 8.6-10.6 L 4475397082) eGFR Calculation mL/min/1.73m2 (Non-) (test code = 2328031322) eGFR Calculation mL/min/1.73m2 () (test code = 7447308193) JUAN LUIS (test code = JUAN LUIS) [...] tests). Lab Interpretation Abnormal (test code = 44860-4) [facility]2020-02-08 08:20:00 Test Item Value Reference Range Interpretation Comments MAGNESIUM (test code = 7974192323) 2.0 mg/dL 1.7-2.4 Lab Interpretation (test code = Normal 40079-0) [facility] WITH [id number] 08:11:00 Test Item Value Reference Range Interpretation [...] (test code = 35.3 fL 38.5-51.6 L 73613-1) RDW-CV (test code = 15.1 % 12.1-15.4 788-0) PLT (test code = See_Comment [Automated 777-3) message] The sy stem which generated this result transmitted reference range : 150 - 328 10*3/ ?L. The reference r christine was not used to interpret this result as normal/abnormal . MPV (test code = 11.5 fL 9.8-13 32283-4) IPF % (test code = 4.2 % 1.2-10.7 Platelet count 2631962082) measured by fluorescence method. NRBC/100 WBC (test See_Comment [Automat ed code = 9107116157) message] The system which generated this result transmitted reference range : 0.0 - 10.0 /100 WBCs. The refer ence range was not u sed to interpret th is result as normal/abnormal . NRBC x10^3 (test code <0.01 See_Comment [Auto mated = 8449999196) message] The s ystem which generated this result transmitted reference range : 10*3/?L. The reference range was not used to interpret this result as normal/abnormal . GRAN MAT (NEUT) % 68.5 % (test code = 770-8) IMM GRAN % (test code 0.40 % = 2378476081) LYMPH % (test code = 18.7 % 736-9) MONO % (test code = 8.8 % 5905-5) EOS % (test code = 3.0 % 713-8) BASO % (test code = 0.6 % 706-2) GRAN MAT x10^3(ANC) 5.42 10*3/uL 1.99-6.95 (test code = 4435635834) IMM GRAN x10^3 (test 0.03 10*3/uL 0-0.06 code = 5679521614) LYMPH x10^3 (test code 1.48 10*3/uL 1.09-3.23 = 731-0) MONO x10^3 (test code 0.70 10*3/uL 0.36-1.02 = 742-7) EOS x10^3 (test code = 0.24 10*3/uL 0.06-0.53 711-2) BASO x10^3 (test code 0.05 10*3/uL 0.01-0.09 = 704-7) Lab Interpretation Abnormal (test code = 06949-0) [facility] GLUCOSE (AUTOMATED)2019-08-22 06:25:00 Test Item Value Reference Range Interpretation Comments POCT GLU (test code = 253 mg/dL 70-110 H Notifi ed Provider [id number]) Lab Interpretation (test Abnormal code = 54017-9) [facility] GLUCOSE (AUTOMATED)2019-08-22 03:19:00 Test Item Value Reference Range Interpretation Comments POCT GLU (test code = 279 mg/dL 70-110 H Notifi ed Provider [id number]) Lab Interpretation (test Abnormal code = 23213-5) [facility] GLUCOSE (AUTOMATED)2019-08-21 22:45:00 Test Item Value Reference Range Interpretation Comments POCT GLU (test code = 1890784249) 231 mg/dL 70-110 H Lab Interpretation (test code = Abnormal 98839-7) [facility] GLUCOSE (AUTOMATED)2019-08-21 18:32:00 Test Item Value Reference Range Interpretation Comments POCT GLU (test code = 2224557929) 144 mg/dL 70-110 H Lab Interpretation (test code = Abnormal 62479-5) [facility] GLUCOSE (AUTOMATED)2019-08-21 13:56:00 Test Item Value Reference Range Interpretation Comments POCT GLU (test code = 6687241420) 123 mg/dL 70-110 H Lab Interpretation (test code = Abnormal 28976-8) [facility] GLUCOSE (AUTOMATED)2019-08-21 10:04:00 Test Item Value Reference Range Interpretation Comments POCT GLU (test code = 111 mg/dL 70-110 H Notifi ed Provider [id number]) Lab Interpretation (test Abnormal code = 14921-4) [facility] [id number] 08:37:00 Test Item Value Reference Range Interpretation Comments NT-proBNP (test code 93638 pg/mL See_Comment H [Autom ated = 2689475174) message] The system which generated this result transmitted reference range : <=125. The reference range was not used to interpret this result as normal/abnormal . JUAN LUIS (test code = JUAN LUIS) Biotin has been reported to cause a negative bias, interpret results relative to patient's use of biotin. Lab Interpretation Abnormal (test code = 75929-6) [facility] Metabolic Panel (NA, K, CL, CO2, GLUCOSE, BUN, CREATININE, CA)2019-08-21 08:28:00 Test Item Value Reference Range Interpretation Comments NA (test code = 136 mmol/L 135-145 0104181859) K (test code = 5.0 mmol/L 3.5-5 7085971543) CL (test code = 102 mmol/L 98-108 7380761656) CO2 TOTAL (test code = 30 mmol/L 23-31 1585603468) AGAP (test code = 2-16 1739964744) BUN (test code = 37 mg/dL 7-23 H 1347429228) GLUCOSE (test code = 88 mg/dL 70-110 6449618147) CREATININE (test code = 1.44 mg/dL 0.6-1.25 H 4213388938) CALCIUM (test code = 8.2 mg/dL 8.6-10.6 L 9735004316) eGFR Calculation mL/min/1.73m2 (Non-) (test code = 3700546802) eGFR Calculation mL/min/1.73m2 () (test code = 7409374116) JUAN LUIS (test code = JUAN LUIS) [...] tests). Lab Interpretation Abnormal (test code = 32407-3) [facility] WITH [id number] 08:17:00 Test Item Value Reference Range Interpretation Comments WBC (test code = See_Comment [Automated 7690-2) message] The sy stem which generated this result transmitted reference range : 4.20 - 10.70 10*3/?L. The reference range was not used to interpret this result as normal/abnormal . RBC (test code = See_Comment [Automated 069-8) message] The sy stem which generated this [...] (test code = 35.3 fL 38.5-51.6 L 56951-7) RDW-CV (test code = 15.2 % 12.1-15.4 788-0) PLT (test code = See_Comment [Automated 777-3) message] The sy stem which generated this result transmitted reference range : 150 - 328 10*3/ ?L. The reference r christine was not used to interpret this result as normal/abnormal . MPV (test code = 12.2 fL 9.8-13 38564-6) IPF % (test code = 4.9 % 1.2-10.7 Platelet count 8520699814) measured by fluorescence method. NRBC/100 WBC (test See_Comment [Automat ed code = 8038202843) message] The system which generated this result transmitted reference range : 0.0 - 10.0 /100 WBCs. The refer ence range was not u sed to interpret th is result as normal/abnormal . NRBC x10^3 (test code <0.01 See_Comment [Auto mated = 3841524814) message] The s ystem which generated this result transmitted reference range : 10*3/?L. The reference range was not used to interpret this result as normal/abnormal . GRAN MAT (NEUT) % 78.7 % (test code = 770-8) IMM GRAN % (test code 0.40 % = 1337165015) LYMPH % (test code = 11.4 % 736-9) MONO % (test code = 8.1 % 5905-5) EOS % (test code = 0.9 % 713-8) BASO % (test code = 0.5 % 706-2) GRAN MAT x10^3(ANC) 8.31 10*3/uL 1.99-6.95 H (test code = 7458975465) IMM GRAN x10^3 (test 0.04 10*3/uL 0-0.06 code = 8591418723) LYMPH x10^3 (test code 1.20 10*3/uL 1.09-3.23 = 731-0) MONO x10^3 (test code 0.85 10*3/uL 0.36-1.02 = 742-7) EOS x10^3 (test code = 0.09 10*3/uL 0.06-0.53 711-2) BASO x10^3 (test code 0.05 10*3/uL 0.01-0.09 = 704-7) Lab Interpretation Abnormal (test code = 43083-6) [facility] GLUCOSE (AUTOMATED)2019-08-21 05:13:00 Test Item Value Reference Range Interpretation Comments POCT GLU (test code = 4631377446) 87 mg/dL 70-110 Lab Interpretation (test code = Normal 30817-2) [facility] GLUCOSE (AUTOMATED)2019-08-21 03:29:00 Test Item Value Reference Range Interpretation Comments POCT GLU (test code = 65 mg/dL 70-110 L Notifi ed Provider [id number]) Lab Interpretation (test Abnormal code = 52940-4) [facility] GLUCOSE (AUTOMATED)2019-08-20 22:42:00 Test Item Value Reference Range Interpretation Comments POCT GLU (test code = 2736956875) 102 mg/dL 70-110 Lab Interpretation (test code = Normal 25682-3) [facility], [id number] 22:11:00 Test Item Value Reference Range Interpretation Comments VIT D 25OH (test code = <13 25-80 L 61721-6) JUAN LUIS (test code = JUAN LUIS) Deficiency: <20 ng/mLInsufficiency: 20-24 ng/mLOptimal: 25-80 ng/mL Lab Interpretation (test Abnormal code = 90619-6) [facility] GLUCOSE (AUTOMATED)2019-08-20 17:49:00 Test Item Value Reference Range Interpretation Comments POCT GLU (test code = 6719529999) 112 mg/dL 70-110 H Lab Interpretation (test code = Abnormal 90214-8) [facility]2019-08-20 14:23:00 Test Item Value Reference Range Interpretation Comments POCT GLU (test code = 3178351181) 122 mg/dL 70-110 H Lab Interpretation (test code = Abnormal 95810-7) [facility] HospitalTROPONIN [id number] 11:09:00 Test Item Value Reference Range Interpretation Comments TROPONIN I (test 0.032 ng/mL See_Comment [Automated code = 1523643085) message] The system which generated this result [...] ? Lab Interpretation Normal (test code = 75782-6) [facility]AL [id number] 11:06:00 Test Item Value Reference Range Interpretation Comments NT-proBNP (test code 75496 pg/mL See_Comment H [Autom ated = 3673355150) message] The system which generated this result transmitted reference range : <=125. The reference range was not used to interpret this result as normal/abnormal . JUAN LUIS (test code = JUAN LUIS) Biotin has been reported to cause a negative bias, interpret results relative to patient's use of biotin. Lab Interpretation Abnormal (test code = 56665-1) [facility]UR[facility] [id number] 10:58:00 Test Item Value Reference Range Interpretation Comments URIC ACID (test code = 6382438279) 5.7 mg/dL 3.6-8 Lab Interpretation (test code = Normal 65940-1) [facility] (NA, K, CL, CO2, GLUCOSE, BUN, CREATININE, CA)2019-08-20 10:58:00 Test Item Value Reference Range Interpretation Comments NA (test code = 136 mmol/L 135-145 9728085113) K (test code = 4.0 mmol/L 3.5-5 8071623190) CL (test code = 106 mmol/L 98-108 3605508286) CO2 TOTAL (test code = 27 mmol/L 23-31 0382377017) AGAP (test code = 2-16 0391767525) BUN (test code = 35 mg/dL 7-23 H 3507573990) GLUCOSE (test code = 149 mg/dL 70-110 H 3775521272) CREATININE (test code = 1.46 mg/dL 0.6-1.25 H 2325532702) CALCIUM (test code = 8.5 mg/dL 8.6-10.6 L 3390646297) eGFR Calculation mL/min/1.73m2 (Non-) (test code = 7338653694) eGFR Calculation mL/min/1.73m2 () (test code = 5054987354) JUAN LUIS (test code = JUAN LUIS) [...] tests). Lab Interpretation Abnormal (test code = 09958-9) [facility] WITH [id number] 10:46:00 Test Item Value Reference Range Interpretation Comments WBC (test code = See_Comment [Automated 7652-2) message] The sy stem which generated this result transmitted reference range : 4.20 - 10.70 10*3/?L. The reference range was not used to interpret this result as normal/abnormal . RBC (test code = See_Comment L [Automated 849-8) message] The sy stem which generated this [...] (test code = 34.4 fL 38.5-51.6 L 64243-0) RDW-CV (test code = 15.2 % 12.1-15.4 788-0) PLT (test code = See_Comment [Automated 287-3) message] The sy stem which generated this result transmitted reference range : 150 - 328 10*3/ ?L. The reference r christine was not used to interpret this result as normal/abnormal . MPV (test code = Not Measure d 75981-0) IPF % (test code = 6.1 % 1.2-10.7 Platelet count 4981696544) measured by fluorescence method. NRBC/100 WBC (test See_Comment [Automat ed code = 3320002702) message] The system which generated this result transmitted reference range : 0.0 - 10.0 /100 WBCs. The refer ence range was not u sed to interpret th is result as normal/abnormal . NRBC x10^3 (test code <0.01 See_Comment [Auto mated = 1697993682) message] The s ystem which generated this result transmitted reference range : 10*3/?L. The reference range was not used to interpret this result as normal/abnormal . GRAN MAT (NEUT) % 66.8 % (test code = 770-8) IMM GRAN % (test code 0.30 % = 4275038398) LYMPH % (test code = 20.3 % 736-9) MONO % (test code = 9.9 % 5905-5) EOS % (test code = 2.3 % 713-8) BASO % (test code = 0.4 % 706-2) GRAN MAT x10^3(ANC) 6.15 10*3/uL 1.99-6.95 (test code = 9341700887) IMM GRAN x10^3 (test 0.03 10*3/uL 0-0.06 code = 4368302998) LYMPH x10^3 (test code 1.87 10*3/uL 1.09-3.23 = 731-0) MONO x10^3 (test code 0.91 10*3/uL 0.36-1.02 = 742-7) EOS x10^3 (test code = 0.21 10*3/uL 0.06-0.53 711-2) BASO x10^3 (test code 0.04 10*3/uL 0.01-0.09 = 704-7) Lab Interpretation Abnormal (test code = 86047-6) [facility] HospitalVIT[facility]IN B12, [id number] 08:51:00 Test Item Value Reference Range Interpretation Comments VIT B12 (test code = 409 pg/mL 240-930 0242048578) JUAN LUIS (test code = JUAN LUIS) Biotin has been reported to cause a positive bias, interpret results relative to patient's use of biotin. Lab Interpretation (test Normal code = 28488-6) [facility] HospitalFOLATE2020-02-06 08:51:00 Test Item Value Reference Range Interpretation Comments FOLATE SER (test code = 11.7 ng/mL 3-20 7728862565) Lab Interpretation (test code = Normal 51746-3) [facility] GLUCOSE (AUTOMATED)2019-08-20 05:51:00 Test Item Value Reference Range Interpretation Comments POCT GLU (test code = 7298752862) 239 mg/dL 70-110 H Lab Interpretation (test code = Abnormal 88279-1) [facility] GLUCOSE (AUTOMATED)2019-08-20 02:49:00 Test Item Value Reference Range Interpretation Comments POCT GLU (test code = 9795919200) 261 mg/dL 70-110 H Lab Interpretation (test code = Abnormal 66278-9) [facility] HospitalIRON [id number] 23:44:00 Test Item Value Reference Range Interpretation Comments IRON (test code = 64 ug/dL 50-160 Slight hem olysis 2895098440) TIBC (test code = 225 ug/dL 250-410 L 2726933019) % FE SAT (test code = 28 % 20-50 7616277295) Lab Interpretation (test Abnormal code = 94985-7) [id number] 23:42:00 Test Item Value Reference Range Interpretation Comments TROPONIN I (test 0.039 ng/mL See_Comment H [Automated code = 1637229050) message] The system which generated this result [...] ? Lab Interpretation Abnormal (test code = 20268-9) [facility] HospitalFERRITIN [id number] 23:37:00 Test Item Value Reference Range Interpretation Comments FERRITIN (test code = 744.0 ng/mL 18-464 H 7807322273) JUAN LUIS (test code = JUAN LUIS) Biotin has been reported to cause a negative bias, interpret results relative to patient's use of biotin. Lab Interpretation (test Abnormal code = 20017-5) [facility] GLUCOSE (AUTOMATED)2019-08-19 21:51:00 Test Item Value Reference Range Interpretation Comments POCT GLU (test code = 4539355666) 235 mg/dL 70-110 H Lab Interpretation (test code = Abnormal 75098-0) [facility] GLUCOSE (AUTOMATED)2019-08-19 17:19:00 Test Item Value Reference Range Interpretation Comments POCT GLU (test code = 9710766604) 283 mg/dL 70-110 H Lab Interpretation (test code = Abnormal 72154-7) [facility] GLUCOSE (AUTOMATED)2019-08-19 13:57:00 Test Item Value Reference Range Interpretation Comments POCT GLU (test code = 0794847614) 165 mg/dL 70-110 H Lab Interpretation (test code = Abnormal 49760-5) [facility] HospitalTROPONIN [id number] 11:05:00 Test Item Value Reference Range Interpretation Comments TROPONIN I (test 0.045 ng/mL See_Comment H [Automated code = 0990893052) message] The system which generated this result [...] ? Lab Interpretation Abnormal (test code = 19664-6) [facility] HospitalTrtur[facility] medical centerjoycen [id number] 11:04:00 Test Item Value Reference Range Interpretation Comments TROPONIN I (test 0.046 ng/mL See_Comment H [Automated code = 5913257634) message] The system which generated this result [...] ? Lab Interpretation Abnormal (test code = 78018-9) [facility] HospitalN-TERMINAL [id number] 11:02:00 Test Item Value Reference Range Interpretation Comments NT-proBNP (test code 58070 pg/mL See_Comment H [Autom ated = 8420950769) message] The system which generated this result transmitted reference range : <=125. The reference range was not used to interpret this result as normal/abnormal . JUAN LUIS (test code = JUAN LUIS) Biotin has been reported to cause a negative bias, interpret results relative to patient's use of biotin. Lab Interpretation Abnormal (test code = 86599-6) [facility] HospitalBasic Metabolic Panel (NA, K, CL, CO2, GLUCOSE, BUN, CREATININE, CA)2019-08-19 11:00:00 Test Item Value Reference Range Interpretation Comments NA (test code = 138 mmol/L 135-145 2867871290) K (test code = 3.1 mmol/L 3.5-5 L 6064089936) CL (test code = 106 mmol/L 98-108 2340621245) CO2 TOTAL (test code = 26 mmol/L 23-31 5506894420) AGAP (test code = 2-16 8097377080) BUN (test code = 31 mg/dL 7-23 H 6210050313) GLUCOSE (test code = 61 mg/dL 70-110 L 0600575763) CREATININE (test code = 1.28 mg/dL 0.6-1.25 H 0216388589) CALCIUM (test code = 9.2 mg/dL 8.6-10.6 1537493890) eGFR Calculation mL/min/1.73m2 (Non-) (test code = 8161302405) eGFR Calculation mL/min/1.73m2 () (test code = 1689456414) JUAN LUIS (test code = JUAN LUIS) [...] tests). Lab Interpretation Abnormal (test code = 68815-7) [facility]UR[facility] [id number] 10:53:00 Test Item Value Reference Range Interpretation Comments URIC ACID (test code = 6278387543) 5.3 mg/dL 3.6-8 Lab Interpretation (test code = Normal 52934-9) [facility] HospitalMAGNESIUM2020-02-05 10:53:00 Test Item Value Reference Range Interpretation Comments MAGNESIUM (test code = 1869595008) 2.3 mg/dL 1.7-2.4 Lab Interpretation (test code = Normal 66216-3) [facility] HospitalPHOSPHORUS2020-02-05 10:53:00 Test Item Value Reference Range Interpretation Comments PHOSPHORUS (test code = 0622940226) 3.3 mg/dL 2.5-5 Lab Interpretation (test code = Normal 93900-0) [facility] HospitalCBC WITH [id number] 10:30:00 Test Item Value Reference Range Interpretation [...] (test code = 34.7 fL 38.5-51.6 L 20081-9) RDW-CV (test code = 15.2 % 12.1-15.4 788-0) PLT (test code = See_Comment [Automated 777-3) message] The sy stem which generated this result transmitted reference range : 150 - 328 10*3/ ?L. The reference r christine was not used to interpret this result as normal/abnormal . MPV (test code = Not Measure d 07182-9) IPF % (test code = 6.8 % 1.2-10.7 Platelet count 9141812507) measured by fluorescence method. NRBC/100 WBC (test See_Comment [Automat ed code = 2633056884) message] The system which generated this result transmitted reference range : 0.0 - 10.0 /100 WBCs. The refer ence range was not u sed to interpret th is result as normal/abnormal . NRBC x10^3 (test code <0.01 See_Comment [Auto mated = 1970305602) message] The s ystem which generated this result transmitted reference range : 10*3/?L. The reference range was not used to interpret this result as normal/abnormal . GRAN MAT (NEUT) % 60.5 % (test code = 770-8) IMM GRAN % (test code 0.30 % = 7029941652) LYMPH % (test code = 26.2 % 736-9) MONO % (test code = 9.8 % 5905-5) EOS % (test code = 2.6 % 713-8) BASO % (test code = 0.6 % 706-2) GRAN MAT x10^3(ANC) 6.61 10*3/uL 1.99-6.95 (test code = 9412969688) IMM GRAN x10^3 (test 0.03 10*3/uL 0-0.06 code = 3838069943) LYMPH x10^3 (test code 2.86 10*3/uL 1.09-3.23 = 731-0) MONO x10^3 (test code 1.07 10*3/uL 0.36-1.02 H = 742-7) EOS x10^3 (test code = 0.28 10*3/uL 0.06-0.53 711-2) BASO x10^3 (test code 0.07 10*3/uL 0.01-0.09 = 704-7) Lab Interpretation Abnormal (test code = 64365-3) [facility] GLUCOSE (AUTOMATED)2019-08-19 10:02:00 Test Item Value Reference Range Interpretation Comments POCT GLU (test code = 3181711041) 81 mg/dL 70-110 Lab Interpretation (test code = Normal 49615-0) [facility] GLUCOSE (AUTOMATED)2019-08-19 04:46:00 Test Item Value Reference Range Interpretation Comments POCT GLU (test code = 1574101468) 325 mg/dL 70-110 H Lab Interpretation (test code = Abnormal 56549-4) [facility] HospitalUR[facility] [id number] 04:45:00 Test Item Value Reference Range Interpretation Comments URIC ACID (test code = 2716517019) 5.2 mg/dL 3.6-8 Lab Interpretation (test code = Normal 16982-7) [facility] HospitalTroponin [id number] 04:08:00 Test Item Value Reference Range Interpretation Comments TROPONIN I (test 0.026 ng/mL See_Comment [Automated code = 2634574072) message] The system which generated this result [...] ? Lab Interpretation Normal (test code = 62366-3) [facility] HospitalLipid Panel (Total Cholesterol, Triglycerides, HDL)2019-08-19 03:55:00 Test Item Value Reference Range Interpretation Comments CHOL (test code = 196 mg/dL 120-200 7437047073) HDL (test code = 36 mg/dL >40 L 5924192084) HDLC RATIO (test code = See_Comment H [Au tomated message] 9628930782) The system [employer] generated this result transmit tennille reference range : <=5.0. The refe rence range was not u sed to interpret th is result as normal/abnormal . TRIG (test code = 131 mg/dL 30-170 8402819231) LDL CHOL (test code = 134 mg/dL See_Comment [Auto mated message] 71078-3) The system [employer] generated this result transmit tennille reference range : <=160. The refe rence range was not u sed to interpret th is result as normal/abnormal . VLDL (test code = 26 mg/dL 5-60 8869847505) Lab Interpretation (test Abnormal code = 83546-9) [facility] HospitalPOCT GLUCOSE (AUTOMATED)2019-08-19 01:40:00 Test Item Value Reference Range Interpretation Comments POCT GLU (test code = 3463210805) 381 mg/dL 70-110 H Lab Interpretation (test code = Abnormal 78244-7) [facility] HospitalThyroid Stimulating Hormone (TSH)2019-08-19 00:12:00 Test Item Value Reference Range Interpretation Comments TSH (test code = See_Comment Biotin has been 8291418075) reported to cau se a negative bias, interpret resul ts relative to carla centeno's use of biotin. [Automated mess age] The system [employer] generated this result transmitted ref erence range: 0.45 - 4 .70 mIU/L. The refe rence range was not u sed to interpret this result as normal/abnor mal. Lab Interpretation (test Normal code = 44518-4) [facility] HospitalGlycosylated Hemoglobin (A1C)2019-08-19 00:11:00 Test Item Value [...] Indicated Lab Interpretation Abnormal (test code = 64066-2) [facility] HospitalLipid Panel (Total Cholesterol, Triglycerides, HDL) - [id number] 23:40:00 Test Item Value Reference Range Interpretation Comments CHOL (test code = 199 mg/dL 120-200 2697888157) HDL (test code = 36 mg/dL >40 L 0429941232) HDLC RATIO (test code = See_Comment H [Au tomated message] 1381154577) The system [employer] generated this result transmit tennille reference range : <=5.0. The refe rence range was not u sed to interpret th is result as normal/abnormal . TRIG (test code = 146 mg/dL 30-170 5476037969) LDL CHOL (test code = 134 mg/dL See_Comment [Auto mated message] 77847-0) The system ic h generated this result transmit tennille reference range : <=160. The refe rence range was not u sed to interpret th is result as normal/abnormal . VLDL (test code = 29 mg/dL 5-60 4566890770) Lab Interpretation (test Abnormal code = 60667-7) [facility]PO[facility]SE (AUTOMATED)2019-08-18 23:33:00 Test Item Value Reference Range Interpretation Comments POCT GLU (test code = 8583573942) 424 mg/dL 70-110 H Lab Interpretation (test code = Abnormal 55177-4) [facility] HospitalN-TERMINAL [id number] 21:57:00 Test Item Value Reference Range Interpretation Comments NT-proBNP (test code 04562 pg/mL See_Comment H [Autom ated = 2350720159) message] The system which generated this result transmitted reference range : <=125. The reference range was not used to interpret this result as normal/abnormal . JUAN LUIS (test code = JUAN LUIS) Biotin has been reported to cause a negative bias, interpret results relative to patient's use of biotin. Lab Interpretation Abnormal (test code = 79656-0) [facility] HospitalaPTT2020-02-04 21:26:00 Test Item Value Reference Range Interpretation Comments APTT Patient (test See_Comment [Automat ed code = 3173-2) message] The system which generated this result transmitted reference range : 23 - 38 Seconds . The reference range was not used to interpr et this result as normal/abnormal . JUAN LUIS (test code = JUAN LUIS) The [facility] patient population mean normal value for aPTT is 30 seconds. Lab Interpretation Normal (test code = 02173-6) [facility] HospitalPROTHROMBIN TIME / [id number] 21:24:00 Test Item Value Reference Range Interpretation [...] tions. Lab Interpretation (test Normal code = 11411-1) [facility] HospitalBRADY [id number] 21:14:00 Test Item Value Reference Range Interpretation Comments TROPONIN I (test 0.023 ng/mL See_Comment [Automated code = 6565081739) message] The system which generated this result [...] ? Lab Interpretation Normal (test code = 09221-9) [facility] 2 [id number] 21:02:07HISTORY: ?Chest pain. TECHNIQUE: PA and lateral [...] in the lower lungs with small bilateralpleural effusion.[facility] (95704)2019-08-18 21:02:00 Test Item Value Reference Range Interpretation Comments NA (test code = 134 mmol/L 135-145 L 7244021117) K (test code = 3.8 mmol/L 3.5-5 1721933877) CL (test code = 103 mmol/L 98-108 0085031631) CO2 TOTAL (test code = 25 mmol/L 23-31 1452253419) AGAP (test code = 2-16 8520799290) BUN (test code = 29 mg/dL 7-23 H 9717928025) GLUCOSE (test code = 384 mg/dL 70-110 H 1088171037) CREATININE (test code = 1.14 mg/dL 0.6-1.25 7092942434) TOTAL BILI (test code = 0.3 mg/dL 0.1-1.8 6950073359) CALCIUM (test code = 8.7 mg/dL 8.6-10.6 9766319555) T PROTEIN (test code = 6.1 g/dL 6.3-8.2 L 3555158504) ALBUMIN (test code = 3.3 g/dL 3.5-5 L 7959092315) ALK PHOS (test code = 84 U/L 34-122 4811088025) ALTv (test code = 11 U/L 5-50 1742-6) AST(SGOT) (test code = 18 U/L 13-40 4394158753) eGFR Calculation mL/min/1.73m2 (Non-) (test code = 4456496243) eGFR Calculation mL/min/1.73m2 () (test code = 9369177767) JUAN LUIS (test code = JUAN LUIS) [...] tests). Lab Interpretation Abnormal (test code = 43591-5) [facility] HospitalLIPASE, [id number] 21:02:00 Test Item Value Reference Range Interpretation Comments LIPASE (test code = 5201786393) 82 U/L 0-220 Lab Interpretation (test code = Normal 00295-5) [facility] HospitalCB WITH [id number] 21:00:00 Test Item Value Reference Range Interpretation Comments WBC (test code = See_Comment [Automated 3640-2) message] The sy stem which generated this result transmitted reference range : 4.20 - 10.70 10*3/?L. The reference range was not used to interpret this result as normal/abnormal . RBC (test code = See_Comment [Automated 214-1) message] The sy stem which generated this [...] (test code = 35.4 fL 38.5-51.6 L 89990-9) RDW-CV (test code = 15.3 % 12.1-15.4 788-0) PLT (test code = See_Comment [Automated 777-3) message] The sy stem which generated this result transmitted reference range : 150 - 328 10*3/ ?L. The reference r christine was not used to interpret this result as normal/abnormal . MPV (test code = Not Measure d 33265-2) NRBC/100 WBC (test See_Comment [Automat ed code = 8999482198) message] The system which generated this result transmitted reference range : 0.0 - 10.0 /100 WBCs. The refer ence range was not u sed to interpret th is result as normal/abnormal . NRBC x10^3 (test code <0.01 See_Comment [Auto mated = 0136362387) message] The s ystem which generated this result transmitted reference range : 10*3/?L. The reference range was not used to interpret this result as normal/abnormal . GRAN MAT (NEUT) % 72.4 % (test code = 770-8) IMM GRAN % (test code 0.40 % = 3400934473) LYMPH % (test code = 16.5 % 736-9) MONO % (test code = 7.6 % 5905-5) EOS % (test code = 2.6 % 713-8) BASO % (test code = 0.5 % 706-2) GRAN MAT x10^3(ANC) 6.03 10*3/uL 1.99-6.95 (test code = 5610806294) IMM GRAN x10^3 (test 0.03 10*3/uL 0-0.06 code = 2430288958) LYMPH x10^3 (test code 1.37 10*3/uL 1.09-3.23 = 731-0) MONO x10^3 (test code 0.63 10*3/uL 0.36-1.02 = 742-7) EOS x10^3 (test code = 0.22 10*3/uL 0.06-0.53 711-2) BASO x10^3 (test code 0.04 10*3/uL 0.01-0.09 = 704-7) Lab Interpretation Abnormal (test code = 88163-5) [facility]"
[2021-10-22 09:03] LABS: Absolute Lymphocytes (CBC) 0.7 K/uL (0.7-4.9); Hematocrit 24.1 % (39.6-49.0); Lymphocytes % 9.8 % (15.3-44.8); MPV 10.7 fL (7.6-11.3); RBC Red Blood Cell Count 3.27 M/uL (4.33-5.43)
[2021-10-22] MEDS ORDERED: LEVALBUTEROL 1.25 MG/3 ML NEB ONE (09:04)
[2021-10-22] MEDS ORDERED: HYDROCORTISONE SUC 100 MG INJ ONE (09:04)
[2021-10-22] MEDS ORDERED: NA CHLORIDE 0.9% 100 ML IV ONE (09:05)
[2021-10-22] MEDS ORDERED: FAMOTIDINE 20 MG/2 ML VIAL IV ONE (09:05)
[2021-10-22] MEDS ORDERED: IPRATROPIUM BROM 0.5MG/2.5ML ONE (09:05)
[2021-10-22] MEDS ORDERED: NA CHLORIDE 0.9% 500 ML ONE ×2 (09:05→12:02)
[2021-10-22] MEDS ORDERED: PIPERACIL/TAZO 3.375 GM VIAL IV ONE (09:06)
[2021-10-22] MEDS ORDERED: NA CHLORIDE 0.9% 1,000 ML ONE (09:06)
[2021-10-22 09:16] LABS: Protime INR 1.18
[2021-10-22 09:30] LABS: Albumin 2.8 g/dL (3.4-5.0); Bilirubin Direct 0.2 mg/dL (0-0.2); Bilirubin Total 0.5 mg/dL (0.2-1.0); Potassium 3.8 mmol/L (3.5-5.1); Protein, Total 6.2 g/dL (6.4-8.2); Troponin High Sensitivity 58.7 pg/mL (<58.9)
--- NOTE | 2021-10-22 09:44 | RAD REPORT ---
EXAM DESCRIPTION: RAD - Chest Single View - 10/22/2021 9:10 am CLINICAL HISTORY: Cough;Congestion COMPARISON: Chest Single View dated 09/29/2021; Chest Pa And Lat (2 Views) dated 08/25/2021; Chest Sin gle View dated 08/24/2021; Chest Single View dated 07/08/2021; Renal Biopsy\CT dated 09/08/2021 FINDINGS: Lines: None. Lungs: Decreased lung volumes on the right. Increased widespread airspace disease. Pleural: Bilateral pleural effusions. Cardiac: Cardiomegaly . Bones: No acute fractures. Sternotomy. Other: IMPRESSION: Worsening of widespread interstitial and airspace opacities that probably reflects edema though pneumonia difficult to entirely exclude radiographically. Bilateral pleural effusions.
[2021-10-22 09:56] LABS: Urine Blood 3+ (Negative); Urine Glucose Negative (Negative); Urine Protein 3+ (Negative); Urine Specific Gravity 1.025 (1.005-1.030); Urine pH 5.5 (5.0-7.0)
--- NOTE | 2021-10-22 10:03 | ER ---
Nurse's Notes [facility] [place] Name: Mumtaz Anderson Age: 66 yrs Sex: Male : 1955 Arrival Date: 10/22/2021 Time: 07:57 Bed 16 Private MD: Diagnosis: Dyspnea;Unspecified combined systolic (congestive) and diastolic (congestive) heart failure;Pleural effusion in other conditions classified elsewhere;Acute kidney failure, unspecified-on chronic failure;Anemia, unspecified;Hypokalemia;Type 1 diabetes mellitus with hypoglycemia;Do not resuscitate-no intubation, no cpr, no cardioversion Presentation: 10/22 08:00 Chief complaint: Patient states: Cough, SOB for 1 week. No fever. EMS states: VSS. O2 ll1 2L NC. Coronavirus screen: Vaccine status: Patient reports receiving the 2nd dose of the covid vaccine. Client denies travel out of the [place] in the last 14 days. congestion, cough unrelated to allergies. Ebola Screen: Patient denies travel to an Ebola-affected area in the 21 days before illness onset. Initial Sepsis Screen: Does the patient meet any 2 criteria? No. Patient's initial sepsis screen is negative. Does the patient have a suspected source of infection? Yes: Productive cough/pneumonia. Risk Assessment: Do you want to hurt yourself or someone else? Patient reports no desire to harm self or others. Onset of symptoms was October 16, 2021. 08:00 Method Of Arrival: EMS ll1 08:00 Acuity: VIDAL 3 ll1 Historical: - Allergies: 07:59 anextuss; ll1 07:59 Latex, Natural Rubber; ll1 07:59 spironolactone; ll1 - PMHx: 07:59 Diabetes - IDDM; Anemia; Hypertension; Parkinsons; Pneumonia; COPD; Myocardial ll1 infarction; Seizures; kidney disease; Hypercholesterolemia; Cerebrovascular accident; CHF; CAD; - PSHx: 07:59 knee; hip; Coronary artery bypass graft; PEG tube; ll1 - Immunization history:: Client reports receiving the 2nd dose of the Covid vaccine. - Social history:: Smoking status: Patient denies any tobacco usage or history of. - Family history:: not pertinent. Screenin:10 Abuse screen: Denies threats or abuse. Denies injuries from another. Has been jh6 threatened or abused. 08:10 Nutritional screening: Difficulty chewing/swallowing? Yes. Tuberculosis screening: No jh6 symptoms or risk factors identified. Fall Risk Secondary diagnosis (15 points) impaired mobility, IV access (20 points). Gait- Impaired (20 pts.). Sepsis Screening: . Infection:. Pneumonia Screening: Productive Cough (5pts), Shortness of Breath (3pts), Chronic Respiratory/Lung Disease (3pts), Bed-Ridden/Decreased Mobility (3pts), Hx. of Pneumonia (2pts). Total Score: 3 Pts. or > (High Risk), Pneumonia Protocol Initiated. Assessment: 09:25 General: Appears comfortable, Behavior is cooperative. Pain: Pain currently is 4 out of jh6 10 on a pain scale. 10:12 Reassessment: Patient and/or family updated on plan of care and expected duration. Pain jh6 level reassessed. Patient is alert, oriented x 3, equal unlabored respirations, skin warm/dry/pink. Pt able to cough up moderate amount of Phleum. pt appears restful without increased sob. 10:20 General: central line kit set up at bedside. MD Dang was able to go over [facility] jh6 with spouse. . 11:31 Reassessment: No changes from previously documented assessment. Patient and/or family jh6 updated on plan of care and expected duration. Pain level reassessed. PT BS 85 after D5 100ml. pt not as easy to arouse as before, made aware. 12:35 Reassessment: Patient and/or family updated on plan of care and expected duration. Pain jh6 level reassessed. consent signed for Dr Lara to place temporary dialysis cath for treatment of acute renal failure. ultrasound and supplies at bedside;. 13:01 Reassessment: Patient is alert, oriented x 3, equal unlabored respirations, skin jh6 warm/dry/pink. pt tolerated procedure well, pressure applied to groin for continued leakage of blood from insertion site. blood transfusion without reaction. 13:15 Reassessment: Dr. Lara at bedside assessing leakage from insertion site. Dr. Lara ss states, "it looks fine right now." Pt is resting at this time, eyes closed respirations even and unlabored. at bedside. Awaiting room assignment from fun house operator, Marcia. Vital Signs: 08:00 BP 133 / 50; Pulse 54; Resp 20; Temp 98.5; Pulse Ox 98% on 2 lpm NC; Weight 63.5 kg; ll1 Height 6 ft. 0 in. (182.88 cm); Pain 0/10; 08:10 BP 133 / 58; Pulse 57; Resp 22; Pulse Ox 98% ; Pain 3/10; jh6 08:45 BP 133 / 58; Pulse 57; Resp 20; Pulse Ox 98% ; Pain 3/10; jh6 10:07 BP 139 / 60; Pulse 71; Resp 20; Pulse Ox 97% ; jh6 11:00 BP 125 / 49; Pulse 67; Resp 16; Pulse Ox 97% ; Pain 0/10; jh6 12:10 BP 142 / 54; Pulse 68; Resp 14; Temp 97.7(A); Pulse Ox 97% ; jh6 08:00 Body Mass Index 18.99 (63.50 kg, 182.88 cm) ll1 ED Course: 07:57 Patient arrived in ED. eb 07:57 Homer Dang MD is Attending Physician. stanley 07:59 Arm band placed on Patient placed in an exam room, on a stretcher. ll1 08:01 Triage completed. ll1 08:10 Inserted saline lock: 22 gauge in left forearm, using aseptic technique. Blood 6 collected. 08:26 Colleen Clay, RN is Primary Nurse. 6 09:12 XRAY Chest (1 view) In Process Unspecified. EDMS 09:17 EKG done, by ED staff, reviewed by Homer Dang MD. mb7 09:30 Placed in gown. Bed in low position. Call light in reach. Side rails up X 1. Adult w/ jh6 patient. 09:56 Jhonny Montez is Hospitalizing Provider. stanley 11:31 Inserted saline lock: 20 gauge in left antecubital area, using aseptic technique. 6 Administered Medications: 09:22 Drug: Solu-CORTEF (hyrdoCORTISONE) 100 mg Route: IVP; Site: left forearm; jh6 09:22 Drug: Xopenex (levalbuterol) 2.5 mg Route: Inhalation; jh6 09:22 Drug: AtroVENT (ipratropium) Aerosol 0.5 mg Route: Inhalation; jh6 09:23 Dru.375 grams of (Zosyn (piperacillin-tazobactam) 3.375 grams, NS 0.9% 100 ml) 6 Route: IVPB; Infused Over: 60 mins; Site: left forearm; 09:23 Drug: NS 0.9% 500 ml Route: IV; Rate: bolus; Site: left forearm; 6 09:24 Drug: Pepcid (famotidine) 20 mg Route: IVP; Site: left forearm; 6 10:07 Drug: NS 0.9% 1000 ml Route: IV; Rate: 125 ml/hr; Site: left forearm; 6 10:40 Drug: D5W 100 ml Route: IVPB; Site: left forearm; 6 10:41 Not Given (not availablee): D50W 25 ml IVP once; (0.5 amp) [facility] Outcome: 10:03 Decision to Hospitalize by Provider. [facility] 14:36 Patient left the ED. stanley Signatures: Dispatcher [employer] EDHomer Carpenter MD MD cha Smirch, Shelby, RN RN Christina Betts Lynsay, RN RN 1 Colleen Clay RN RN 6 Trupti Carroll [facility]
--- NOTE | 2021-10-22 10:04 | EDPHYS ---
Physician Documentation [facility] Name: Mumtaz Anderson Age: 66 yrs Sex: Male : 1955 Arrival Date: 10/22/2021 Time: 07:57 Bed 16 Private MD: ED Physician Homer Dang HPI: 10/22 08:29 This 66 yrs old Male presents to ER via EMS with complaints of dyspne , weak stanley and more lethargic. 08:29 The patient has shortness of breath at rest. Onset: The symptoms/episode began/occurred stanley 3 day(s) ago. Duration: The symptoms are continuous, and are steadily getting worse. The patient's shortness of breath is aggravated by coughing, supine position. The patient or guardian reports difficulty breathing, flu symptoms, myalgias. Modifying factors: The symptoms are alleviated by nothing. cough , congestion, weakness, pale. Associated signs and symptoms: The patient has no apparent associated signs or symptoms. Severity of symptoms: At their worst the symptoms were mild moderate in the emergency department the symptoms are unchanged. Associated signs and symptoms: Pertinent positives: rhinorrhea. Historical: - Allergies: 07:59 anextuss; ll1 07:59 Latex, Natural Rubber; ll1 07:59 spironolactone; ll1 - PMHx: 07:59 Diabetes - IDDM; Anemia; Hypertension; Parkinsons; Pneumonia; COPD; Myocardial ll1 infarction; Seizures; kidney disease; Hypercholesterolemia; Cerebrovascular accident; CHF; CAD; - PSHx: 07:59 knee; hip; Coronary artery bypass graft; PEG tube; ll1 - Immunization history:: Client reports receiving the 2nd dose of the Covid vaccine. - Social history:: Smoking status: Patient denies any tobacco usage or history of. - Family history:: not pertinent. ROS: 08:29 Constitutional: Negative for fever, chills, and weight loss, Eyes: Negative for injury, stanley pain, redness, and discharge, ENT: Negative for injury, pain, and discharge, Neck: Negative for injury, pain, and swelling, Cardiovascular: Negative for chest pain, palpitations, and edema, Abdomen/GI: Negative for abdominal pain, nausea, vomiting, diarrhea, and constipation, Back: Negative for injury and pain, : Negative for injury, bleeding, discharge, and swelling, MS/Extremity: Negative for injury and deformity, Neuro: Negative for headache, weakness, numbness, tingling, and seizure, Psych: Negative for depression, anxiety, suicide ideation, homicidal ideation, and hallucinations, Allergy/Immunology: Negative for hives, rash, and allergies, Endocrine: Negative for neck swelling, polydipsia, polyuria, polyphagia, and marked weight changes, Hematologic/Lymphatic: Negative for swollen nodes, abnormal bleeding, and unusual bruising. 08:29 Respiratory: Positive for cough, "sounds productive", shortness of breath, at rest. wheezing, expiratory. 08:29 Skin: Positive for pallor. Exam: 08:29 Constitutional: This is a well developed, well nourished patient who is awake, alert, stanley and in no acute distress. Head/Face: Normocephalic, atraumatic. Eyes: Pupils equal round and reactive to light, extra-ocular motions intact. Lids and lashes normal. Conjunctiva and sclera are non-icteric and not injected. Cornea within normal limits. Periorbital areas with no swelling, redness, or edema. ENT: Nares patent. No nasal discharge, no septal abnormalities noted. Tympanic membranes are normal and external auditory canals are clear. Oropharynx with no redness, swelling, or masses, exudates, or evidence of obstruction, uvula midline. Mucous membranes moist. Neck: Trachea midline, no thyromegaly or masses palpated, and no cervical lymphadenopathy. Supple, full range of motion without nuchal rigidity, or vertebral point tenderness. No Meningismus. Chest/axilla: Normal chest wall appearance and motion. Nontender with no deformity. No lesions are appreciated. Cardiovascular: Regular rate and rhythm with a normal S1 and S2. No gallops, murmurs, or rubs. Normal PMI, no JVD. No pulse deficits. Abdomen/GI: Soft, non-tender, with normal bowel sounds. No distension or tympany. No guarding or rebound. No evidence of tenderness throughout. Back: No spinal tenderness. No costovertebral tenderness. Full range of motion. Male : Normal genitalia with no discharge or lesions. MS/ Extremity: Pulses equal, no cyanosis. Neurovascular intact. Full, normal range of motion. Neuro: Awake and alert, GCS 15, oriented to person, place, time, and situation. Cranial nerves II-XII grossly intact. Motor strength 5/5 in all extremities. Sensory grossly intact. Cerebellar exam normal. Normal gait. Psych: Awake, alert, with orientation to person, place and time. Behavior, mood, and affect are within normal limits. 08:29 Respiratory: mild respiratory distress is noted, Respirations: labored breathing, that is mild, Breath sounds: bronchial sounds, that are mild, are scattered, decreased breath sounds, that are mild, are scattered, rhonchi, that are mild, stridor, is not appreciated, Respiratory rate: 22 08:29 Musculoskeletal/extremity: ROM: intact in all extremities, Circulation is intact in all extremities. Sensation intact. Compartment Syndrome exam of affected extremity: is normal. 10:11 ECG was reviewed by the Attending Physician. [facility] Vital Signs: 08:00 BP 133 / 50; Pulse 54; Resp 20; Temp 98.5; Pulse Ox 98% on 2 lpm NC; Weight 63.5 kg; ll1 Height 6 ft. 0 in. (182.88 cm); Pain 0/10; 08:10 BP 133 / 58; Pulse 57; Resp 22; Pulse Ox 98% ; Pain 3/10; jh6 08:45 BP 133 / 58; Pulse 57; Resp 20; Pulse Ox 98% ; Pain 3/10; jh6 10:07 BP 139 / 60; Pulse 71; Resp 20; Pulse Ox 97% ; jh6 11:00 BP 125 / 49; Pulse 67; Resp 16; Pulse Ox 97% ; Pain 0/10; jh6 12:10 BP 142 / 54; Pulse 68; Resp 14; Temp 97.7(A); Pulse Ox 97% ; jh6 08:00 Body Mass Index 18.99 (63.50 kg, 182.88 cm) ll1 MDM: 07:57 Patient medically screened. stanley 08:35 Differential diagnosis: asthma, Bronchitis CHF exacerbation, Chronic Obstructive stanley Pulmonary Disease bronchitis, flu, URI, pneumonia, pulmonary edema, reactive airway disease, Sepsis Unstable Angina. Antibiotic administration: zosyn. Differential Diagnosis altered mental status, sepsis, flu. The patient's Wells Deep Vein Thrombosis Score was calculated as follows: Total Score: 0-2 Pts- Low Risk. The patient's pulmonary embolism risk score was calculated as follows: Total Score: 0-2 points. This patient was found to be at low risk for a pulmonary embolism by using the Well's assessment criteria. Immunization status: Pneumococcal vaccine: Influenza vaccine: Data reviewed: vital signs, nurses notes, lab test result(s), EKG, radiologic studies. Data interpreted: panel monitor: rate is 54 beats/min, rhythm is regular, Pulse oximetry: on room air is 91 %. Test interpretation: by ED physician or midlevel provider: ECG, plain radiologic studies. 10/22 08:28 Order name: Basic Metabolic Panel; Complete Time: 09:46 [facility] 10/22 08:28 Order name: CBC with Diff; Complete Time: 09:18 10/22 08:28 Order name: LFT's; Complete Time: 09:46 10/22 08:28 Order name: Magnesium; Complete Time: 09:46 stanley 10/22 08:28 Order name: NT PRO-BNP; Complete Time: 09:46 10/22 08:28 Order name: PT-INR; Complete Time: 09:18 10/22 08:28 Order name: Troponin HS; Complete Time: 09:46 [facility] 10/22 08:28 Order name: Blood Culture Adult (2) 10/22 08:28 Order name: Lactate; Complete Time: 09:46 [facility] 10/22 08:28 Order name: Procalcitonin; Complete Time: 09:46 [facility] 10/22 08:28 Order name: Urine Culture 10/22 08:28 Order name: COVID-19/FLU A+B (Document "Date of Onset" if Symptomatic); Complete Time: stanley 11:53 10/22 08:28 Order name: Type And Screen 10/22 08:28 Order name: Sputum Culture 10/22 08:28 Order name: XRAY Chest (1 view); Complete Time: 09:46 [facility] 10/22 08:28 Order name: EKG; Complete Time: 08:29 [facility] 10/22 08:28 Order name: Cardiac monitoring; Complete Time: 08:56 [facility] 10/22 09:32 Order name: Packed RBC Leukored EDWA 10/22 09:56 Order name: Urine Dipstick-Ancillary; Complete Time: 11:53 EDMS 10/22 11:17 Order name: Glucose, Ancillary Testing; Complete Time: 11:53 EDMS 10/22 08:28 Order name: EKG - Nurse/Tech; Complete Time: 09:17 [facility] 10/22 08:28 Order name: IV Saline Lock; Complete Time: 08:56 [facility] 10/22 08:28 Order name: Labs collected and sent; Complete Time: 08:56 [facility] 10/22 08:28 Order name: O2 Per Protocol; Complete Time: 08:56 [facility] 10/22 08:28 Order name: O2 Sat Monitoring; Complete Time: 08:56 [facility] 10/22 08:28 Order name: Urine Dipstick-Ancillary (obtain specimen) [facility] 10/22 08:29 Order name: IV Saline Lock - Large Bore; Complete Time: 08:56 [facility] 10/22 09:18 Order name: Transfuse [facility] 10/22 09:51 Order name: Central Line Kit: set up; Complete Time: 10:06 [facility] 10/22 11:23 Order name: IV Saline Lock - Large Bore [facility] EC:11 Rate is 56 beats/min. Rhythm is regular. QRS [place] is Normal. AR interval is prolonged stanley at 242 msec. QRS interval is normal. QT interval is normal. No Q waves. T waves are Normal. No ST changes noted. Clinical impression: Sinus bradycardia and No evidence of ischemia. Interpreted by me. Reviewed by me. Administered Medications: 09:22 Drug: Solu-CORTEF (hyrdoCORTISONE) 100 mg Route: IVP; Site: left forearm; 6 09:22 Drug: Xopenex (levalbuterol) 2.5 mg Route: Inhalation; 6 09:22 Drug: AtroVENT (ipratropium) Aerosol 0.5 mg Route: Inhalation; 6 09:23 Dru.375 grams of (Zosyn (piperacillin-tazobactam) 3.375 grams, NS 0.9% 100 ml) [facility] Route: IVPB; Infused Over: 60 mins; Site: left forearm; 09:23 Drug: NS 0.9% 500 ml Route: IV; Rate: bolus; Site: left forearm; 6 09:24 Drug: Pepcid (famotidine) 20 mg Route: IVP; Site: left forearm; jh6 10:07 Drug: NS 0.9% 1000 ml Route: IV; Rate: 125 ml/hr; Site: left forearm; jh6 10:40 Drug: D5W 100 ml Route: IVPB; Site: left forearm; jh6 10:41 Not Given (not availablee): D50W 25 ml IVP once; (0.5 amp) jh6 Disposition Summary: 10/22/21 10:03 Hospitalization Ordered Hospitalization Status: Inpatient Admission stanley Provider: Jhonny Montez cha Condition: Serious stanley Problem: new stanley Symptoms: are unchanged stanley Bed/Room Type: Standard stanley Location: Intensive Care Unit(10/22/21 12:32) stanley Room Assignment: 7-(10/22/21 13:29) dw Diagnosis - Dyspnea stanley - Unspecified combined systolic (congestive) and diastolic (congestive) heart failure stanley - Pleural effusion in other conditions classified elsewhere stanley - Acute kidney failure, unspecified - on chronic failure stanley - Anemia, unspecified stanley - Hypokalemia stanley - Type 1 diabetes mellitus with hypoglycemia stanley - Do not resuscitate - no intubation, no cpr, no cardioversion stanley Forms: - Medication Reconciliation Form stanley - SBAR form stanley Signatures: Dispatcher [employer] Marcia Harper RN RN dw Anderson, Corey, MD MD cha Mickail, Joel, PA PA jmm Lewis, Lynsay, RN RN ll1 Colleen Clay RN RN jh6 Corrections: (The following items were deleted from the chart) 12:32 10:03 Telemetry/MedSurg (Inpatient) stanley stanley 12:32 10:03 stanley stanley 13:29 12:32 stanley dw
[2021-10-22 10:21] LABS: SARS-COV-2 RT PCR NEGATIVE (NEGATIVE)
[2021-10-22] MEDS ORDERED: D5W 100 ML IV ONE (10:41)
--- NOTE | 2021-10-22 11:33 | P.HP ---
Certification for Inpatient Patient admitted to: Inpatient With expected LOS: >2 Midnights Practitioner: I am a practitioner with admitting privileges, knowledge of patient current condition, hospital course, and medical plan of care. Services: Services provided to patient in accordance with Admission requirements found in Title 42 Section 412.3 of the Code of Federal Regulations Patient History Date of Service: 10/22/21 Allergies spironolactone Adverse Reaction (Verified 09/29/21 23:27) Anaphylaxis nexen Adverse Reaction (Uncoded 02/08/21 23:48) hallucination Home Medications: Aspirin [Adult Aspirin Regimen] 81 mg PO DAILY 06/04/20 Atorvastatin Calcium [Lipitor] 80 mg FT BEDTIME 06/04/20 Amlodipine [Norvasc*] 10 mg FT DAILY 07/16/20 Clopidogrel Bisulfate [Plavix*] 75 mg FT DAILY 07/16/20 Escitalopram [Lexapro*] 40 mg FT DAILY 07/16/20 Gabapentin 300 mg FT BID 07/16/20 Doxazosin [Cardura*] 2 mg FT BEDTIME 30 Days #30 tab 12/08/20 Ascorbic Acid [Vitamin C] 1,000 mg FT BID 12/16/20 Sucralfate [Carafate] 1 gm FT SEECOM 12/16/20 Trazodone HCl 150 mg FT BEDTIME 12/16/20 Nut.tx.impaired Renal Fxn,Soy [Nepro Carb Steady] 360 mg FT QID 06/10/21 Tamsulosin [Flomax*] 0.4 mg PO DAILY 06/10/21 Benzonatate 1 cap PO TID 08/25/21 Ferrous Sulfate 1 tab PO BID 09/30/21 Furosemide [Lasix] 1 tab PO BID 09/30/21 Hydralazine [Apresoline*] 1 tab PO SEECOM 09/30/21 Ondansetron HCl 1 tab PO Q8H PRN 09/30/21 Tramadol HCl [Ultram] 1 tab PO Q4H PRN 09/30/21 Ertapenem Na [Invanz] 1 gm IV DAILY #14 vial 10/02/21 Nepro Shake [Nepro*] 1 ml PO QID #120 can 10/02/21 - Past Medical/Surgical History Diabetic: Yes -: Diabetes mellitus type 2, insulin-dependent -: CAD -: Hypertension -: Hyperlipidemia -: COPD -: Tobacco abuse -: Fracture t12 L3 -: PEG tube -: CKD 3 -: seizures -: Stroke -: Chronic diastolic congestive -: Knee surgery -: I&D lower right buttock -: hiatal hernia repair -: I and D to the left foot -: Left Bipolar Hemiarthroplasty 04/06/19 -: Hip surgery -: CABG -: hand sx, PEG Psychosocial/ Personal History: Patient is single. He lives with his son. - Family History Father -: Heart disease, Hypertension, Lung disease, GI disease, Diabetes, Cancer, Other (see notes) Notes: parkinson's disease Mother -: Heart disease, Hypertension, Diabetes, Cancer Sister -: Cancer - Social History Alcohol use: No CD- Drugs: No Caffeine use: Yes Physical Examination - Studies Laboratory Data (last 24 hrs) 10/22/21 08:40: PT 13.0 H, INR 1.18 10/22/21 08:40: WBC 6.7, Hgb 7.4 L, Hct 24.1 L, Plt Count 114 L 10/22/21 08:40: Sodium 145, Potassium 3.8, BUN 108 H, Creatinine 2.92 H, Glucose 68 L, Magnesium 3.0 H, Total Bilirubin 0.5, AST 15, ALT 23, Alkaline Phosphatase 72 Assessment and Plan - Advance Directives Does patient have a Living Will: No Does patient have a Durable POA for Healthcare: Yes
--- NOTE | 2021-10-22 11:52 | P.HP ---
Certification for Inpatient Patient admitted to: Inpatient With expected LOS: >2 Midnights Practitioner: I am a practitioner with admitting privileges, knowledge of patient current condition, hospital course, and medical plan of care. Services: Services provided to patient in accordance with Admission requirements found in Title 42 Section 412.3 of the Code of Federal Regulations Patient History Date of Service: 10/22/21 Reason for admission: Shortness of breath and lethargy History of Present Illness: 66-year-old gentleman with a history of chronic kidney disease, pleural e ffusion, malnutrition, coronary artery disease, chronic diastolic heart failure, status post PEG was brought to the emergency department due to progressive shortness of breath. Spouse also report patient has been lethargic. He was recently discharged from [facility]. Patient was unresponsive during my examination in the ED. check x-ray demonstrated bilateral pleural effusion, large on the right. Blood work showed significantly elevated BUN. Creatinine is up to 2.92. Patient is also anemic with hemoglobin of 7.4. He is hospitalized for further management. Allergies spironolactone Adverse Reaction (Verified 09/29/21 23:27) Anaphylaxis nexen Adverse Reaction (Uncoded 02/08/21 23:48) hallucination Home Medications: Aspirin [Adult Aspirin Regimen] 81 mg PO DAILY 06/04/20 Atorvastatin Calcium [Lipitor] 80 mg FT BEDTIME 06/04/20 Amlodipine [Norvasc*] 10 mg FT DAILY 07/16/20 Clopidogrel Bisulfate [Plavix*] 75 mg FT DAILY 07/16/20 Escitalopram [Lexapro*] 40 mg FT DAILY 07/16/20 Gabapentin 300 mg FT BID 07/16/20 Doxazosin [Cardura*] 2 mg FT BEDTIME 30 Days #30 tab 12/08/20 Ascorbic Acid [Vitamin C] 1,000 mg FT BID 12/16/20 Sucralfate [Carafate] 1 gm FT SEECOM 12/16/20 Trazodone HCl 150 mg FT BEDTIME 12/16/20 Nut.tx.impaired Renal Fxn,Soy [Nepro Carb Steady] 360 mg FT QID 06/10/21 Tamsulosin [Flomax*] 0.4 mg PO DAILY 06/10/21 Benzonatate 1 cap PO TID 08/25/21 Ferrous Sulfate 1 tab PO BID 09/30/21 Furosemide [Lasix] 1 tab PO BID 09/30/21 Hydralazine [Apresoline*] 1 tab PO SEECOM 09/30/21 Ondansetron HCl 1 tab PO Q8H PRN 09/30/21 Tramadol HCl [Ultram] 1 tab PO Q4H PRN 09/30/21 Ertapenem Na [Invanz] 1 gm IV DAILY #14 vial 10/02/21 Nepro Shake [Nepro*] 1 ml PO QID #120 can 10/02/21 - Past Medical/Surgical History Diabetic: Yes -: Diabetes mellitus type 2, insulin-dependent -: CAD -: Hypertension -: Hyperlipidemia -: COPD -: Tobacco abuse -: Fracture t12 L3 -: PEG tube -: CKD 3 -: seizures -: Stroke -: Chronic diastolic congestive -: Knee surgery -: I&D lower right buttock -: hiatal hernia repair -: I and D to the left foot -: Left Bipolar Hemiarthroplasty 04/06/19 -: Hip surgery -: CABG -: hand sx, PEG Psychosocial/ Personal History: Patient is single. He lives with his son. - Family History Father -: Heart disease, Hypertension, Lung disease, GI disease, Diabetes, Cancer, Other (see notes) Notes: parkinson's disease Mother -: Heart disease, Hypertension, Diabetes, Cancer Sister -: Cancer - Social History Alcohol use: No CD- Drugs: No Caffeine use: Yes Review of Systems Other: No reported diarrhea or nausea or vomiting. Except as documented, all other systems reviewed and negative. Physical Examination - Physical Exam General: Cachectic, Unresponsive, Other (Ill looking) HEENT: Normocephalic, Mucous membr. moist/pink, Sclerae nonicteric Neck: JVD not distended, No Thyromegaly Respiratory: Diminished (Bilateral), Other (No crackles) Cardiovascular: Regular rate/rhythm, Normal S1 S2, Edema (1+ bilateral lower extremity edema) Capillary refill: <2 Seconds Gastrointestinal: Soft and benign, Non-distended, No tenderness, Other (PEG tube) Musculoskeletal: No contractures, No tenderness Integumentary: Other (Left heel decubitus ulcer) Neurological: Other (Unresponsive, he moves all extremities spontaneously.) Lymphatics: No axilla or inguinal lymphadenopathy - Studies Laboratory Data (last 24 hrs) 10/22/21 08:40: PT 13.0 H, INR 1.18 10/22/21 08:40: WBC 6.7, Hgb 7.4 L, Hct 24.1 L, Plt Count 114 L 10/22/21 08:40: Sodium 145, Potassium 3.8, BUN 108 H, Creatinine 2.92 H, Glucose 68 L, Magnesium 3.0 H, Total Bilirubin 0.5, AST 15, ALT 23, Alkaline Phosphatase 72 Assessment and Plan - Problems (Diagnosis) (1) Pleural effusion Current Visit: No Status: Acute (2) Acute worsening of stage 4 chronic kidney disease Current Visit: Yes Status: Acute (3) Metabolic encephalopathy Current Visit: Yes Status: Acute (4) Diabetes Current Visit: No Status: Acute Qualifiers: Diabetes mellitus type: type 2 Diabetes mellitus custodial insulin use: with custodial use Diabetes mellitus complication status: without complication Qualified Code(s): E11.9 - Type 2 diabetes mellitus without complications; Z79.4 - joint terminal attack controller (current) use of insulin (5) Pneumonia Current Visit: No Status: Acute Qualifiers: Pneumonia type: due to unspecified organism Laterality: bilateral (6) Weakness generalized Current Visit: No Status: Acute (7) Anemia Onset Date: 11/05/16 Current Visit: No Status: Chronic - Plan Patient with significantly worse pleural effusion, large effusion on the left. Altered mental status likely secondary to uremic encephalopathy. Admit patient to the medical floor. Case discussed with nephrology-Dr. Yadav. Hemodialysis recommended. General surgery-Dr. Lara consulted for dialysis access. Treat pleural effusion with IV Lasix for the meantime. Aggressive antibiotic coverage given lethargy and possible pneumonia. Keep n.p.o. today. Insulin sliding scale for glucose management. May need 1 unit PRBC transfusion with hemodialysis. Monitor CBC and renal function. - Advance Directives Does patient have a Living Will: No Does patient have a Durable POA for Healthcare: Yes
[2021-10-22] MEDS ORDERED: HEPARIN 500 UNIT/5 ML SYR IV ONE (12:29)
[2021-10-22] MEDS ORDERED: HEPARIN 5000 UNIT/ML 1 ML VIAL ONE (12:34)
--- NOTE | 2021-10-22 12:38 | P.OP ---
Preoperative diagnosis: Acute on Chronic Renal Failure Postoperative diagnosis: Acute on Chronic Renal Failure Primary procedure: Placement of RIGHT Femoral Temporary Hemodialsis catheter Secondary procedure: ultrasound guidance Anesthesia: Local 1% lidocaine Estimated blood loss: <20cc Specimen: none Findings: dark non-pulsatile blood returned Complications: None Implants: Temporary hemodialysis catheter Transferred to: Other Condition: Fair
--- NOTE | 2021-10-22 13:14 | CON ---
Date of Consultation: 10/22/2021 Reason For Consultation: Placement of hemodialysis access. Brief History Of Present Illness: The patient is a 66-year-old gentleman with history of CKD, pleural effusion, malnutrition, coronary artery disease, chronic diastolic heart failure, status post PEG, who was brought to the emergency department due to increasing shortness of breath. He has been getting worst, lethargy. He was recently discharged from [facility] bed, unresponsive for the most part, now minimally responsive during my examination. He was found to have significantly worsening renal function. As such, I was consulted for placement of a temporary hemodialysis catheter and possible long-term hemodialysis access. Past Medical History: As above significant for diabetes, coronary artery disease, hypertension, hyperlipidemia, COPD, tobacco abuse, fracture of T12 and L3, CKD stage 3, seizure, stroke, chronic diastolic congestive heart failure, hiatal hernia in the past. Past Surgical History: Includes PEG tube placement, knee surgery, I and D of lower right buttock, hiatal hernia repair, I and ID of the left foot, left bipolar hemiarthroplasty, CABG, hand surgery. Social History: He lives with his son. Apparently, he is single. Denies alcohol, smoking, recreational drug use at this time. Family History: Significant for heart disease, hypertension, lung disease, Parkinson disease. Mother with hypertension, diabetes, cancer. Review of Systems: A 10-point review of systems other than HPI, unable to obtain due to profound lethargy. Physical Examination: General: At the time of my examination; he is lethargic, but responsive, does not appear oriented at this time. HEENT: Otherwise normocephalic. His sclerae were anicteric. Mucous membranes were somewhat dry. Oropharynx is clear. Neck: Supple without JVD. Chest: Normal expansion and excursion. Cardiovascular: Regular rate and rhythm. Pulmonary: Clear to auscultation bilaterally. Abdomen: Soft. PEG tube in place. Extremities: Somewhat diaphoretic. Laboratory Data: He had a laboratory exam, which revealed white blood cell count 6.7, hemoglobin 10.4, hematocrit 24.1, platelet count is 114. Coagulation is 13.8, INR 1.18. Chemistry showed a sodium of 145, potassium 3.8, chloride 112, carbon dioxide 23, BUN 108, creatinine 2.92. His GFR is 22, glucose is 68, lactic acid 0.6, calcium 9.3, magnesium 3.0, total bilirubin 0.5, direct bilirubin 0.2, AST 15, ALT 23, alkaline phosphatase 72. His troponin is 58.7. ProBNP is 26,623. Procalcitonin is 0.19. His serology showed PCR for COVID was negative, influenza A and B negative. He had a chest x-ray performed on 10/22/2021, which was officially read as worsening of widespread interstitial airspace opacities that represents edema with pneumonia, difficult to entirely exclude radiologically, bilateral pleural effusions. Assessment And Plan: This is a 66-year-old male with worsening kidney dysfunction, acute on chronic renal dysfunction. I have explained the benefits, and alternatives of placement of a temporary hemodialysis catheter including, but not limited to bleeding, infection, damage to surrounding tissues, need for further operation and procedures. Continue medical management per primary team. The patient will achieve dialysis today and we will see if the patient requires long-term hemodialysis access. If he does, I will discuss risks, benefits, and alternatives of that with the patient and his family. Thank you for this interesting consult. RADHAMES/ERLIN Voice ID: [id number] Report ID: [id number] JONO
--- NOTE | 2021-10-22 13:35 | OP ---
Date of Procedure: 10/22/2021 Surgeon: Ric Lara MD, Preoperative Diagnosis: Acute on chronic renal failure. Postoperative Diagnosis: Acute on chronic renal failure. Procedure Performed: Placement of a right femoral temporary hemodialysis catheter using ultrasound guidance and micro introducer set. Anesthesia: Local 1% lidocaine utilized. Estimated Blood Loss: Less than 1 cc. Specimen: None. Findings: Dark nonpulsatile blood returned. Complications: None. Implants: non-tunneled hemodialysis catheter. Disposition: The patient remained in the ER in fair condition throughout the procedure. Procedure In Detail: After informed was obtained, the patient was prepped and draped in the usual sterile fashion after adequate anesthesia was achieved. Using ultrasound guidance, I cannulate the right femoral vein on the first attempt with a micro introducer needle. Dark red nonpulsatile blood was returned. Immediately, I advanced the micro wire at this point and removed the needle. I made a small nito incision overlying the insertion site and advanced the micro introducer sheath without incident or complication. Micro wire was removed at this point. Standard wire was then advanced through the sheath at this point. I then proceeded to remove the introducer sheath after making a nito incision overlying the site. A Seldinger technique was then performed to dilate up the vein and the standard introducer sheath was placed and the wire was removed at this point. The catheter was then introduced after removing the inner cannula into the femoral vein without incident or complication. The introducer sheath was then removed and the catheter withdrew dark red nonpulsatile blood and was flushed quite easily and packed with heparin super flush this time, 1.3 cc per port. They were capped at this point. I then secured the catheter to the skin with the attached 2-0 nylon suture and a sterile dressing was placed over top. The patient tolerated the procedure well without evidence of any complication, remained in the ER throughout the procedure in fair condition. All counts correct. TK/MODL Voice ID: [id number] Report ID: [id number] JONO
[2021-10-22] MEDS ORDERED: ONDANSETRON 4 MG/2 ML VIAL IV PRN (14:56)
[2021-10-22] MEDS ORDERED: ACETAMINOPHEN 650MG/RECT SUPP PR PRN (14:56)
[2021-10-22] MEDS: INSULIN -REGULAR HUMAN 50 UNIT/0.5 ML ML SQ SCH ×3 (14:56→20:50)
[2021-10-22] MEDS ORDERED: VANCOMYCIN 1.5 GM in NA CHLORIDE 0.9% 500 ML IVPB SCH (16:00)
[2021-10-22 16:09] LABS: Protime INR 1.2
[2021-10-22] MEDS: HEPARIN 5000 UNIT/ML 1 ML VIAL SQ SCH (17:00)
[2021-10-22] MEDS: FUROSEMIDE 40 MG/4 ML VIAL IV SCH (18:08)
[2021-10-22 19:56] LABS: Hematocrit 30.6 % (39.6-49.0)
[2021-10-22] MEDS: NEPRO 1,000 ML BOT FT SCH (20:50)
[2021-10-22] MEDS: SUCRALFATE 1GM/10ML UCUP FT SCH (20:50)
[2021-10-23] MEDS: HEPARIN 5000 UNIT/ML 1 ML VIAL SQ SCH (01:00)
[2021-10-23 05:09] LABS: Absolute Lymphocytes (CBC) 0.5 K/uL (0.7-4.9); Lymphocytes % 6.9 % (15.3-44.8); RBC Red Blood Cell Count 3.96 M/uL (4.33-5.43)
[2021-10-23 05:36] LABS: Albumin 2.8 g/dL (3.4-5.0); Bilirubin Total 0.5 mg/dL (0.2-1.0); Magnesium 2.6 mg/dL (1.8-2.4); Phosphorus 4.2 mg/dL (2.5-4.9); Potassium 3.6 mmol/L (3.5-5.1); Protein, Total 6.8 g/dL (6.4-8.2); Thyroid Stimulating Hormone 2.21 uIU/mL (0.360-3.740)
[2021-10-23] MEDS: INSULIN -REGULAR HUMAN 50 UNIT/0.5 ML ML SQ SCH ×4 (07:30→21:00)
[2021-10-23] MEDS: FUROSEMIDE 40 MG/4 ML VIAL IV SCH ×2 (08:50→16:56)
[2021-10-23] MEDS: SUCRALFATE 1GM/10ML UCUP FT SCH ×4 (08:50→22:02)
[2021-10-23] MEDS: NEPRO 1,000 ML BOT FT SCH ×4 (08:51→22:17)
--- NOTE | 2021-10-23 09:39 | EKG ---
Test Date: 2021-10-22 Test Time: 09:02:28 Umbrella Tipper Machine: MB MEASUREMENT RESULTS: Intervals: Rate: 56 [place]: 242 QRSD: 122 QT: 504 QTc: 486 [place]: P: 77 [place]: 242 QRS: 123 T: 41 INTERPRETIVE STATEMENTS: Sinus bradycardia with sinus arrhythmia with 1st degree AV block Lateral infarct, age undetermined Abnormal ECG Compared to ECG 08/24/2021 11:38:57 Sinus rhythm no longer present Prolonged QT interval no longer present Myocardial infarct finding still present Electronically Signed On 10-23-21 09:35:44 CDT by Martin Reyes
--- NOTE | 2021-10-23 11:01 | P.PN ---
Subjective Date of Service: 10/23/21 Chief Complaint: Shortness of breath and lethargy Subjective: Improving (Patient got dialysis yesterday, minor bleeding from catheter insertion site.) Physical Examination - Vital Signs Temperature: 97.5 F Blood Pressure: 159/67 Pulse: 69 Respirations: 12 Pulse Ox (%): 96 - Physical Exam General: Alert, In no apparent distress Integumentary: Other (RIGHT femoral catheter in place, minimal dry blood @ insertion site.) Assessment And Plan - Current Problems (Diagnosis) (1) Acute renal failure Current Visit: No Status: Acute Plan: - continue medical management - will remain available if patient requires permanent hemodialysis access Qualifiers: Acute renal failure type: with acute renal cortical necrosis Qualified Code(s): N17.1 - Acute kidney failure with acute cortical necrosis
[2021-10-23] MEDS ORDERED: NA CHLORIDE 0.9% 1,000 ML IV PRN (11:29)
[2021-10-23] MEDS ORDERED: MANNITOL 25% 12.5 GM/50 ML VIAL IV PRN (11:29)
--- NOTE | 2021-10-23 11:33 | P.CNS ---
"Date of Consult: 10/23/21 Reason for Consult: OSCAR/ CKD Requesting Physician: geeta osuna Chief Complaint: Shortness of breath and lethargy History of Present Illness: 66-year-old gentleman with a history of chronic kidney disease, pleural effusion, malnutrition, coronary artery disease, chronic diastolic heart failure, status post PEG was brought to the emergency department due to progressive shortness of breath. Spouse also report patient has been lethargic. He was recently discharged from [facility]. Patient was unresponsive during my examination in the ED. check x-ray demonstrated bilateral pleural effusion, large on the right. Blood work showed significantly elevated BUN. Creatinine is up to 2.92. Patient is also anemic with hemoglobin of 7.4. He is hospitalized for further management. 08:29 This 66 yrs old Male presents to ER via EMS with complaints of dyspne , weak stanley and more lethargic. 08:29 The patient has shortness of breath at rest. Onset: The symptoms/episode began/occurred stanley 3 day(s) ago. Duration: The symptoms are continuous, and are steadily getting worse. The patient's shortness of breath is aggravated by coughing, supine position. The patient or guardian reports difficulty breathing, flu symptoms, myalgias. Modifying factors: The symptoms are alleviated by nothing. cough , congestion, weakness, pale. Associated signs and symptoms: The patient has no apparent associated signs or symptoms. Severity of symptoms: At their worst the symptoms were mild moderate in the emergency department the symptoms are unchanged. Associated signs and symptoms: Pertinent positives: rhinorrhea. Allergies Latex, Natural Rubber Adverse Reaction (Verified 10/22/21 14:50) Hives/Rash spironolactone Adverse Reaction (Verified 09/29/21 23:27) Anaphylaxis nexen Adverse Reaction (Uncoded 02/08/21 23:48) hallucination Home medications list reviewed: Yes Home Medications: Aspirin [Adult Aspirin Regimen] 81 mg PO DAILY 06/04/20 Atorvastatin Calcium [Lipitor] 80 mg FT BEDTIME 06/04/20 Amlodipine [Norvasc*] 10 mg FT DAILY 07/16/20 Clopidogrel Bisulfate [Plavix*] 75 mg FT DAILY 07/16/20 Escitalopram [Lexapro*] 40 mg FT DAILY 07/16/20 Gabapentin 300 mg FT BID 07/16/20 Ascorbic Acid [Vitamin C] 1,000 mg FT BID 12/16/20 Sucralfate [Carafate] 1 gm FT SEECOM 12/16/20 Trazodone HCl 150 mg FT BEDTIME 12/16/20 Nut.tx.impaired Renal Fxn,Soy [Nepro Carb Steady] 360 mg FT QID 06/10/21 Tamsulosin [Flomax*] 0.4 mg PO DAILY 06/10/21 Benzonatate 1 cap PO TID PRN 08/25/21 Ferrous Sulfate 1 tab PO BID 09/30/21 Furosemide [Lasix] 1 tab PO BID 09/30/21 Hydralazine [Apresoline*] 1 tab PO BID 09/30/21 Ondansetron HCl 1 tab PO Q8H PRN 09/30/21 Tramadol HCl [Ultram] 1 tab PO Q4H PRN 09/30/21 Codeine Phosphate/Guaifenesin [Virtussin AC 10-100 mg/5 ml Lq] 118 ml PO DAILY PRN 10/22/21 Docusate [Colace Cap] 100 mg PO DAILY PRN 10/22/21 Doxazosin [Cardura*] 2 mg FT DAILY 10/22/21 Ipratropium/Albuterol Sulfate [Iprat-Albut 0.5-3(2.5) mg/3 ml] 0.5 mg IH Q4H PRN 10/22/21 Pantoprazole Sodium [Protonix] 40 mg PO BID PRN 10/22/21 Polyethyl Gly 3350 [Glycolax*] 17 gm PO DAILY PRN 10/22/21 Promethazine Suppos [Phenergan] 25 mg RC Q6H PRN 10/22/21 Promethazine/Dextrometh Syr [Phenergan Dm Oral Syrup*] 5 mg PO Q6H PRN 10/22/21 - Past Medical/Surgical History Diabetic: Yes -: Diabetes mellitus type 2, insulin-dependent/ neuropathy -: CAD/anemia/BPH/diastolic congestive heart failure -: Hypertension/chronic UTI -: Hyperlipidemia|hypothyroid -: COPD -: Tobacco abuse -: Fracture t12 L3 -: PEG tube\\GERD -: CKD 3 -: seizures\\aspiration\\ PNA -: Stroke -: Chronic diastolic congestive -: Knee surgery -: I&D lower right buttock -: hiatal hernia repair -: I and D to the left foot -: Left Bipolar Hemiarthroplasty 04/06/19 -: Hip surgery -: CABG -: hand sx, PEG Psychosocial/ Personal History: Patient is single. He lives with his son. - Family History Father Medical History: Heart disease, Hypertension, Lung disease, GI disease, Diabetes, Cancer, Other (see notes) Notes: parkinson's disease Mother Medical History: Heart disease, Hypertension, Diabetes, Cancer Sister Medical History: Cancer - Social History Smoking Status: Unknown if ever smoked Alcohol use: No CD- Drugs: No Caffeine use: No Place of Residence: Home Review of Systems 10-point ROS is otherwise unremarkable General: Weakness, Malaise Respiratory: SOB with Excertion Cardiovascular: Edema Neurological: Weakness Physical Examination Temp Pulse Resp BP Pulse Ox 97.5 F 69 12 159/67 H 96 10/23/21 11:01 10/23/21 11:01 10/23/21 11:01 10/23/21 11:01 10/23/21 11:01 General: In no apparent distress, Cooperative HEENT: Atraumatic Neck: Supple Respiratory: Diminished Cardiovascular: Regular rate/rhythm, Edema Gastrointestinal: Soft and benign, Non-distended Musculoskeletal: No clubbing, No contractures Integumentary: No rashes, No cyanosis Neurological: Normal speech Blood work reviewed in the chart. Imagings Data: EXAM DESCRIPTION: RAD - Chest Single View - 10/22/2021 9:10 am CLINICAL HISTORY: Cough;Congestion COMPARISON: Chest Single View dated 09/29/2021; Chest Pa And Lat (2 Views) dated 08/25/2021; Chest Single View dated 08/24/2021; Chest Single View dated 07/08/2021; Renal Biopsy\\CT dated 09/08/2021 FINDINGS: Lines: None. Lungs: Decreased lung volumes on the right. Increased widespread airspace disease. Pleural: Bilateral pleural effusions. Cardiac: Cardiomegaly . Bones: No acute fractures. Sternotomy. Other: IMPRESSION: Worsening of widespread interstitial and airspace opacities that probably reflects edema though pneumonia difficult to entirely exclude radiographically. Bilateral pleural effusions. Conclusions/Impression: OSCAR vs Progressive CKD CKD IV with proteinuria -No NSAIDs -Acute HD as ordered Hypokalemia -Encourage nutrition HTN with CKD/ CHF -Monitor BP -HD with UF Diastolic CHF, A/C Pleural Effusion -Low sodium diet -HD with UF -Continue Lasix DM with CKD -RISS Moderate malnutrition -Continue Nepro TF Anemia in chronic illness/ CKD -Retacrit X1 CKD MBD -Start Vitamin D Toxic Metabolic Encephalopathy Uremia -Acute HD as ordered Case discussed with Dr. Osuna Thank you kindly for the consultation. Critical Care: Yes (>30min)"
[2021-10-23] MEDS ORDERED: ALBUMIN HUMAN 25% 50 ML IV SCH (12:00)
--- NOTE | 2021-10-23 12:30 | P.PN ---
Subjective Date of Service: 10/23/21 Chief Complaint: Shortness of breath and lethargy Patient still confused. He is currently tolerating room air with borderline oxygen saturation. Status post hemodialysis yesterday. Physical Examination - Vital Signs Temperature: 97.5 F Blood Pressure: 159/67 Pulse: 69 Respirations: 12 Pulse Ox (%): 96 Assessment And Plan - Current Problems (Diagnosis) (1) Pleural effusion Current Visit: No Status: Acute (2) Acute worsening of stage 4 chronic kidney disease Current Visit: Yes Status: Acute (3) Metabolic encephalopathy Current Visit: Yes Status: Acute (4) Diabetes Current Visit: No Status: Acute Qualifiers: Diabetes mellitus type: type 2 Diabetes mellitus assisted insulin use: with intermission coordinator use Diabetes mellitus complication status: without complication Qualified Code(s): E11.9 - Type 2 diabetes mellitus without complications; Z79.4 - skilled nursing (current) use of insulin (5) Pneumonia Current Visit: No Status: Acute Qualifiers: Pneumonia type: due to unspecified organism Laterality: bilateral (6) Weakness generalized Current Visit: No Status: Acute (7) Anemia Onset Date: 11/05/16 Current Visit: No Status: Chronic - Plan Physical Exam General: Cachectic, confused, ill looking HEENT: Mucous membr. moist/pink, Sclerae nonicteric Neck: JVD not distended. Respiratory: Diminished (Bilateral), No crackles Cardiovascular: Regular rate/rhythm, Normal S1 S2, Edema (1+ bilateral lower extremity edema) Gastrointestinal: Soft and benign, Non-distended, No tenderness, PEG tube Musculoskeletal: No contractures, No tenderness Integumentary: Left heel decubitus ulcer Neurological: Confused, no focal motor deficits. Lymphatics: No axilla or inguinal lymphadenopathy Urogenital: Holcomb catheter Plan: Status post hemodialysis yesterday. Patient is currently tolerating room air. BUN has improved, mental status has improved though patient is still confused. Further hemodialysis per nephrology. Repeat checks x-ray to follow-up pleural effusion. Considering thoracentesis if right pleural effusion does not improve with hemodialysis. Empiric antibiotics for possible pneumonia. PT consult. PEG tube feeding. Status post 1 unit PRBC transfusion for anemia. Continue to monitor CBC and renal function. Wound care for left heel blister.
--- NOTE | 2021-10-23 13:32 | RAD REPORT ---
EXAM DESCRIPTION: RAD - Chest Single View - 10/23/2021 1:26 pm CLINICAL HISTORY: follow up pleural effusion Chest pain. COMPARISON: Chest Single View dated 10/22/2021; Chest Single View dated 09/29/2021; Chest Pa And Lat ( 2 Views) dated 08/25/2021; Chest Single View dated 08/24/2021 FINDINGS: Portable technique limits examination quality. Bilateral pulmonary opacities are present greater on the right, essentially unchanged since yesterday 's study. Small amount right pleural fluid appears unchanged. The heart is moderately enlarged. Bey otomy wires are present. No displaced fractures. IMPRESSION: No significant change is seen since 10/22/2021 study.
[2021-10-23] MEDS ORDERED: VANCOMYCIN 500 MG in NA CHLORIDE 0.9% 100 ML IVPB SCH (15:15)
--- NOTE | 2021-10-23 22:07 | RAD REPORT ---
EXAM DESCRIPTION: CT - Thorax Wo Con CLINICAL HISTORY: Chest pain right lung opacity COMPARISON: Thorax Wo Con dated 06/10/2021; Chest Single View dated 10/23/2021Thorax Wo Con dated ; Chest Single View dated 10/23/2021 FINDINGS: Mild linear atelectasis is present in both lung bases. Mild interstitial pulmonary edema. Small left and moderate to large right pleural effusion is present. No pneumothorax. No axillary, mediastinal or hilar adenopathy. [id number] cardiomegaly. No lytic or blastic bone lesion. Sternotomy wires. Gastrostomy tube is seen. All CT scans are performed using dose optimization technique as appropriate and may include automated exposure control or mA/KV adjustment according to patient size. IMPRESSION: Small left and moderate to large right pleural effusion. Mild interstitial pulmonary edema with atelectasis both bases.
[2021-10-24 04:55] LABS: Absolute Lymphocytes (CBC) 0.6 K/uL (0.7-4.9); Hematocrit 32.1 % (39.6-49.0); Lymphocytes % 5.7 % (15.3-44.8); MPV 10.8 fL (7.6-11.3); RBC Red Blood Cell Count 4.31 M/uL (4.33-5.43)
[2021-10-24 05:12] LABS: Magnesium 2.6 mg/dL (1.8-2.4); Phosphorus 2.5 mg/dL (2.5-4.9); Potassium 3.5 mmol/L (3.5-5.1)
[2021-10-24 05:13] VITALS: BMI 21.8
--- NOTE | 2021-10-24 06:03 | P.PN ---
Date of Service: 10/24/21 Subjective: remains confused, intermittently combative per nursing ROS: 10 point ROS as noted above, otherwise negative Physical exam GEN: confused, tearful HEENT: Normal conjunctiva, sclera anicteric CV: Regular rate and rhythm, 1+ b/l lower extremity edema Pulm: Nonlabored respirations on room air, b/l crackles, diminished at R base ABD: Soft, nontender, nondistended MSK: No joint tenderness Integumentary: L heel ulcer Neuro: confused, moves all extremities without focal deficit hernandez in place - dark yellow urine Problem List Moderatelarge right pleural effusion, mild left pleural effusion Acute worsening of CKD 4 (diabetic nephropathy) Acute metabolic/toxic encephalopathy secondary to OSCAR and infection UTI, history of recurrent UTI Pneumonia Generalized weakness PEG tube feeding Anemia of chronic disease large pleural effusion; pulm consulted, recommend chest tube Dr. Lara consulted, to place chest tube renal function, edema, and mentation improved with dialysis nephrology following, likely will need chronic dialysis empiric antibiotics - cefepime and vanc; cultures pending, Ur: mixed alla and GNR PT consulted feeds via PEG tube more awake/alert, can restart some home meds - psych / gabapentin s/p 1uPRBC for anemia, of chronic disease, reportedly had some hematuria per wound care for Morenita carias patient chronically ill Code: DNR Dispo: anticipate hospitalization > 2 days may need set up with dialysis/chair time, will further discuss with nephrology Time Spent Managing Pts Care (In Minutes): 45
--- NOTE | 2021-10-24 07:14 | RAD REPORT ---
EXAM DESCRIPTION: RAD - Chest Single View - 10/24/2021 6:09 am CLINICAL HISTORY: f/u effusions COMPARISON: Chest Single View dated 10/23/2021; Chest Single View dated 10/22/2021; Chest Single View dated 09/29/2021; Chest Pa And Lat (2 Views) dated 08/25/2021; Thorax Wo Con dated 10/23/2021 FINDINGS: Lines: None. Lungs: Mild walled spread opacities. Pleural: Moderate right and small left pleural effusions again identified. Cardiac: Cardiomegaly. Bones: No acute fractures. Other: Sternotomy. IMPRESSION: Pulmonary edema with moderate right and small left pleural effusions, similar to yesterd
[2021-10-24] MEDS: INSULIN -REGULAR HUMAN 50 UNIT/0.5 ML ML SQ SCH ×4 (07:30→21:00)
[2021-10-24] MEDS: SUCRALFATE 1GM/10ML UCUP FT SCH ×4 (07:40→21:11)
[2021-10-24] MEDS: CALCITROL 0.25 MCG CAP PO SCH (07:40)
[2021-10-24] MEDS: FUROSEMIDE 40 MG/4 ML VIAL IV SCH ×2 (07:41→16:57)
[2021-10-24] MEDS: NEPRO 1,000 ML BOT FT SCH ×4 (07:41→21:13)
[2021-10-24] MEDS: VITAMIN D 5,000 UNIT CAP PO SCH (07:41)
--- NOTE | 2021-10-24 08:38 | P.CNS ---
"Date of Consult: 10/24/21 Reason for Consult: Pleural effusion Chief Complaint: Shortness of breath and lethargy History of Present Illness: Patient is 66 years of age chronic renal disease pleural effusion multiple medical problems. From the emergency room with progressive dyspnea was found to be lethargic he was recently discharged from [place] currently in ICU hemodynamically stable agitated Allergies Latex, Natural Rubber Adverse Reaction (Verified 10/22/21 14:50) Hives/Rash spironolactone Adverse Reaction (Verified 09/29/21 23:27) Anaphylaxis nexen Adverse Reaction (Uncoded 02/08/21 23:48) hallucination Home Medications: Aspirin [Adult Aspirin Regimen] 81 mg PO DAILY 06/04/20 Atorvastatin Calcium [Lipitor] 80 mg FT BEDTIME 06/04/20 Amlodipine [Norvasc*] 10 mg FT DAILY 07/16/20 Clopidogrel Bisulfate [Plavix*] 75 mg FT DAILY 07/16/20 Escitalopram [Lexapro*] 40 mg FT DAILY 07/16/20 Gabapentin 300 mg FT BID 07/16/20 Ascorbic Acid [Vitamin C] 1,000 mg FT BID 12/16/20 Sucralfate [Carafate] 1 gm FT SEECOM 12/16/20 Trazodone HCl 150 mg FT BEDTIME 12/16/20 Nut.tx.impaired Renal Fxn,Soy [Nepro Carb Steady] 360 mg FT QID 06/10/21 Tamsulosin [Flomax*] 0.4 mg PO DAILY 06/10/21 Benzonatate 1 cap PO TID PRN 08/25/21 Ferrous Sulfate 1 tab PO BID 09/30/21 Furosemide [Lasix] 1 tab PO BID 09/30/21 Hydralazine [Apresoline*] 1 tab PO BID 09/30/21 Ondansetron HCl 1 tab PO Q8H PRN 09/30/21 Tramadol HCl [Ultram] 1 tab PO Q4H PRN 09/30/21 Codeine Phosphate/Guaifenesin [Virtussin AC 10-100 mg/5 ml Lq] 118 ml PO DAILY PRN 10/22/21 Docusate [Colace Cap] 100 mg PO DAILY PRN 10/22/21 Doxazosin [Cardura*] 2 mg FT DAILY 10/22/21 Ipratropium/Albuterol Sulfate [Iprat-Albut 0.5-3(2.5) mg/3 ml] 0.5 mg IH Q4H PRN 10/22/21 Pantoprazole Sodium [Protonix] 40 mg PO BID PRN 10/22/21 Polyethyl Gly 3350 [Glycolax*] 17 gm PO DAILY PRN 10/22/21 Promethazine Suppos [Phenergan] 25 mg RC Q6H PRN 10/22/21 Promethazine/Dextrometh Syr [Phenergan Dm Oral Syrup*] 5 mg PO Q6H PRN 10/22/21 - Past Medical/Surgical History Diabetic: Yes -: Diabetes mellitus type 2, insulin-dependent/ neuropathy -: CAD/anemia/BPH/diastolic congestive heart failure -: Hypertension/chronic UTI -: Hyperlipidemia|hypothyroid -: COPD -: Tobacco abuse -: Fracture t12 L3 -: PEG tube\\GERD -: CKD 3 -: seizures\\aspiration\\ PNA -: Stroke -: Chronic diastolic congestive -: Knee surgery -: I&D lower right buttock -: hiatal hernia repair -: I and D to the left foot -: Left Bipolar Hemiarthroplasty 04/06/19 -: Hip surgery -: CABG -: hand sx, PEG Psychosocial/ Personal History: Patient is single. He lives with his son. - Family History Father Medical History: Heart disease, Hypertension, Lung disease, GI disease, Diabetes, Cancer, Other (see notes) Notes: parkinson's disease Mother Medical History: Heart disease, Hypertension, Diabetes, Cancer Sister Medical History: Cancer - Social History Smoking Status: Unknown if ever smoked Alcohol use: No CD- Drugs: No Caffeine use: No Place of Residence: Home Review of Systems is unable to be obtained Physical Examination Temp Pulse Resp BP Pulse Ox 98.1 F 73 16 166/63 H 97 10/24/21 04:00 10/24/21 07:41 10/24/21 06:00 10/24/21 07:41 10/24/21 06:00 General: Alert, Mild distress Respiratory: Diminished (air entry on the right side) Cardiovascular: No edema, Normal S1 S2 Musculoskeletal: Other (Lower extremity decubitus ulcers on the feet) - Problems (1) Pleural effusion Current Visit: Yes Status: Acute Plan: Patient is 66 years of age admitted to the ICU hemodynamically stable agitated multiple medical problems including chronic renal failure labs with mild microcytic anemia far cultures have been negative CT scan of the chest shows a significant right-sided pleural effusion and basilar infiltrate on the left side saturation is satisfactory patient does have a PEG tube expand antibiotic coverage with cefepime high risk for gram-negative organisms continue with vancomycin sitter chest tube"
[2021-10-24] MEDS ORDERED: EPOETIN ALFA 10,000 UNIT/ML VIAL SQ SCH (09:00)
[2021-10-24] MEDS: CEFEPIME 1 GM in NA CHLORIDE 0.9% 100 ML IV SCH (09:56)
--- NOTE | 2021-10-24 14:44 | P.OP ---
Preoperative diagnosis: RIGHT Pleural Effusion Postoperative diagnosis: RIGHT Pleural Effusion Primary procedure: Placement of RIGHT Thoracostomy tube Anesthesia: Local 1% lidocaine used Estimated blood loss: <1cc Specimen: straw colored fluid sent for analysis Findings: non-bloody tap Complications: None Drain(s): Other (8Fr pigtail thoracostomy tube) Transferred to: ICU Condition: Fair
--- NOTE | 2021-10-24 15:25 | RAD REPORT ---
EXAM DESCRIPTION: RAD - Chest Single View - 10/24/2021 3:12 pm CLINICAL HISTORY: Status Post Thorocentesis COMPARISON: Portable October 24 TECHNIQUE: AP portable chest image was obtained 10/24/2021 3:12 pm . FINDINGS: Percutaneous drainage catheter has been placed with the tubing positioned in the lateral m id right chest. Exam acquired during expiration. There is no post thoracentesis pneumothorax identifi able. Chronic interstitial lung disease present. Heart size is stable. Pulmonary vasculature remains promin ent. IMPRESSION: Placement of a right side pleural drainage catheter with substantial reduction in the ri ght-sided pleural effusion. No pneumothorax.
[2021-10-24] MEDS: TRAMADOL HCL 50 MG TAB PO PRN ×2 (15:48→21:11)
[2021-10-24] MEDS: ESCITALOPRAM 20 MG TAB FT SCH (16:57)
[2021-10-24] MEDS: GABAPENTIN 300 MG CAP FT SCH ×2 (16:57→21:12)
--- NOTE | 2021-10-24 19:15 | OP ---
Date of Procedure: 10/24/2021 Surgeon: Ric Lara MD, Preoperative Diagnosis: Right pleural effusion. Postoperative Diagnosis: Right pleural effusion. Procedure Performed: Placement of right thoracostomy tube. Anesthesia: Local 1% lidocaine utilized. Estimated Blood Loss: Less than 1 cc. Specimen: Straw-colored fluid sent for analysis. Findings: Nonbloody straw-colored non-cloudy tap. Complications: None. Implants: An 8-Israeli pigtail thoracostomy tube. Disposition: The patient remained in ICU in fair condition throughout the procedure. Procedure In Detail: After informed consent was obtained, the patient was prepped and draped in the usual sterile fashion after adequate anesthesia achieved. I anesthetized the skin and the site over the rib approximately fifth intercostal space on the midaxillary line and posteriorly to the dependent portion of fluid. I made a small nito incision overlying the skin and advanced the trocar with a pigtail catheter attached into the thoracic space and immediately encountered nonbloody straw-colored fluid. I advanced the pigtail catheter, removed the inner trocar at this point, and continued to advance the catheter. Straw-colored fluid was appreciated at this point. I pulled off approximately almost 300 cc of fluid immediately and sent 3 vials off for analysis. I then cleansed the area once again and placed a sterile dressing over the top and hooked the entire system to a pneumevac pleural evacuation system on wall suction at this point. The patient tolerated the procedure well without evidence of complication, remained in the ICU in a fair condition throughout the procedure. All counts were correct at the end of the case. RADHAMES/ERLIN Voice ID: [id number] Report ID: [id number] [facility] SHOREHelio
[2021-10-24] MEDS: EPOETIN ALFA 10,000 UNIT/ML VIAL SQ SCH (20:00)
[2021-10-24] MEDS ORDERED: POTASSIUM 25 MEQ EFFERV TAB FT ONE (20:05)
--- NOTE | 2021-10-24 20:19 | P.PN ---
Date of Service: 10/24/21 Vital Signs Temp Pulse Resp BP Pulse Ox 98.1 F 77 11 L 148/48 H 96 10/24/21 12:00 10/24/21 18:15 10/24/21 18:15 10/24/21 18:15 10/24/21 18:15 Medications Acetaminophen (Acetaminophen 650mg/Rect Supp) 650 mg NV Q6HP PRN PRN Reason: TEMP > 100' F Albuterol Sulfate (Albuterol 2.5 Mg/3 Ml Neb [place]) 2.5 mg NEB Q6HP PRN PRN Reason: SHORTNESS OF BREATH Atorvastatin Calcium (Atorvastatin 80 Mg Tab) 80 mg FT BEDTIME [place] Calcitriol (Calcitrol 0.25 Mcg Cap) 0.5 mcg PO DAILY [facility] Last Admin: 10/24/21 07:40 Dose: 0.5 mcg Documented by: Cholecalciferol (Vitamin D 5,000 Unit Cap) 5,000 unit PO DAILY [facility] Last Admin: 10/24/21 07:41 Dose: 5,000 unit Documented by: Diphenhydramine HCl (Diphenhydramine 50 Mg/Ml Vial) 12.5 mg IV Q6H PRN PRN Reason: ITCHING Enteral Nutritional Formula (Nepro 1,000 Ml Bot) 360 ml FT ACHS [facility] Last Admin: 10/24/21 16:57 Dose: 360 ml Documented by: Escitalopram Oxalate (Escitalopram 20 Mg Tab) 40 mg FT DAILY [facility] Last Admin: 10/24/21 16:57 Dose: 40 mg Documented by: Furosemide (Furosemide 40 Mg/4 Ml Vial) 40 mg IV BIDL [place] Last Admin: 10/24/21 16:57 Dose: 40 mg Documented by: Gabapentin (Gabapentin 300 Mg Cap) 300 mg FT BID [facility] Last Admin: 10/24/21 16:57 Dose: 300 mg Documented by: Heparin Sodium (Porcine) (Heparin 5000 Unit/Ml 1 Ml Vial) 5,000 unit SQ Q8HR [facility] Last Admin: 10/23/21 01:00 Dose: Not Given Documented by: Heparin Sodium (Porcine) (Heparin 1,000 Unit/Ml Vial) 4,000 unit IV EVERY HD PRN PRN Reason: DIALYSIS CATHETER CARE Albumin Human (Albumin 25%) 50 mls @ 100 mls/hr IV EVERY HD [facility] Vancomycin HCl 500 mg/ Sodium (Chloride) 100 mls @ 100 mls/hr IVPB AFTER EACH DIALYSIS [facility] Last Admin: 10/23/21 22:17 Dose: 100 mls Documented by: Cefepime HCl 1 gm/ Sodium (Chloride) 100 mls @ 200 mls/hr IV DAILY [facility]; Protocol Last Admin: 10/24/21 09:56 Dose: 100 mls Documented by: Insulin Human Regular (Insulin -Regular Human 50 Unit/0.5 Ml Ml) 0 unit SQ ACHS [facility]; Protocol Last Admin: 10/24/21 16:30 Dose: Not Given Documented by: Mannitol (Mannitol 25% 12.5 Gm/50 Ml Vial) 12.5 gm IV EVERY HD PRN PRN Reason: Titrate to SBP (MUST DEFINE) Ondansetron HCl (Ondansetron 4 Mg/2 Ml Vial) 4 mg IV Q6HP PRN PRN Reason: NAUSEA / VOMITING Sodium Chloride (Flush Normal Saline 10 Ml) 10 ml IV BID [facility] Last Admin: 10/24/21 07:42 Dose: 10 ml Documented by: Sucralfate (Sucralfate 1gm/10ml Ucup) 1 gm FT ACHS [facility] Last Admin: 10/24/21 16:57 Dose: 1 gm Documented by: Tramadol HCl (Tramadol Hcl 50 Mg Tab) 50 mg PO Q4H PRN PRN Reason: Pain scale 5-7 (Moderate) Last Admin: 10/24/21 15:48 Dose: 50 mg Documented by: Trazodone HCl (Trazodone 150 Mg Tab) 150 mg PO BEDTIME [facility] Microbiology Results 10/22/21 09:59 Catheterized Urine [place] Count - Final >100,000 CFU/ML. 10/22/21 09:59 Catheterized Urine - Final 10/22/21 08:25 Blood - Blood Aerobic Blood Culture - Preliminary No growth in 24 hours. 10/22/21 08:25 Blood - Blood Anaerobic Blood Culture - Preliminary No growth in 24 hours. 10/22/21 08:40 Blood - Blood Aerobic Blood Culture - Preliminary No growth in 24 hours. 10/22/21 08:40 Blood - Blood Anaerobic Blood Culture - Preliminary No growth in 24 hours. Assessment/ Plan: Nephrology Improving dyspnea No chest pain Insomnia with emotional lability Weakness and fatigue No acute events overnight Vitals, medications, blood work and imaging reviewed in the chart. General: In no apparent distress, Cooperative HEENT: Atraumatic Neck: Supple Respiratory: Diminished Cardiovascular: Regular rate/rhythm, Edema Gastrointestinal: Soft and benign, Non-distended Musculoskeletal: No clubbing, No contractures Integumentary: No rashes, No cyanosis Neurological: Normal speech Greater than 30min patient care. Blood work reviewed in the chart. Imagings Data: EXAM DESCRIPTION: RAD - Chest Single View - 10/22/2021 9:10 am CLINICAL HISTORY: Cough;Congestion COMPARISON: Chest Single View dated 09/29/2021; Chest Pa And Lat (2 Views) dated 08/25/2021; Chest Single View dated 08/24/2021; Chest Single View dated 07/08/2021; Renal Biopsy\CT dated 09/08/2021 FINDINGS: Lines: None. Lungs: Decreased lung volumes on the right. Increased widespread airspace disease. Pleural: Bilateral pleural effusions. Cardiac: Cardiomegaly . Bones: No acute fractures. Sternotomy. Other: IMPRESSION: Worsening of widespread interstitial and airspace opacities that probably reflects edema though pneumonia difficult to entirely exclude radiographically. Bilateral pleural effusions. Conclusions/Impression: OSCAR vs Progressive CKD CKD IV with proteinuria ESRD with HD initiated [id number] -No NSAIDs -Acute HD as ordered -Plan for tunneled CVC -HBV panel pending Hypokalemia -Encourage nutrition -Replete potassium as ordered HTN with CKD/ CHF -Monitor BP -HD with UF Diastolic CHF, A/C Pleural Effusion -Low sodium diet -HD with UF -Continue Lasix -Chest tube, pleural fluid pending DM II with CKD DM Nephropathy -RISS Moderate malnutrition -Continue Nepro TF Anemia in chronic illness/ CKD -Retacrit MWF CKD MBD -Continue Vitamin D Toxic Metabolic Encephalopathy Uremia -Acute HD as ordered Case reviewed with Dr. Carrera and
[2021-10-24] MEDS ORDERED: TRAZODONE 150 MG TAB PO SCH (21:00)
[2021-10-24] MEDS: ATORVASTATIN 80 MG TAB FT SCH (21:12)
[2021-10-24] MEDS ORDERED: TRAZODONE 50 MG TABLET ONE (21:24)
[2021-10-25 05:57] LABS: Absolute Lymphocytes (CBC) 0.7 K/uL (0.7-4.9); Hematocrit 32.1 % (39.6-49.0); Lymphocytes % 8.2 % (15.3-44.8); RBC Red Blood Cell Count 4.36 M/uL (4.33-5.43)
[2021-10-25 06:17] LABS: Magnesium 2.7 mg/dL (1.8-2.4); Phosphorus 1.8 mg/dL (2.5-4.9); Potassium 3.7 mmol/L (3.5-5.1)
--- NOTE | 2021-10-25 06:17 | P.PN ---
Date of Service: 10/25/21 Subjective: psych improving, not tearful. feels very tired/fatigued. not completely oriented ROS: 10 point ROS as noted above, otherwise negative Physical exam GEN: confused, fatigued appearing, ill appearing HEENT: Normal conjunctiva, sclera anicteric CV: Regular rate and rhythm, trace to 1+ b/l lower extremity edema Pulm: Nonlabored respirations on room air, diminished at R base ABD: Soft, nontender, nondistended, PEG in place Integumentary: L heel ulcer Neuro: confused, moves all extremities hernandez in place - dark yellow urine Problem List Moderatelarge right pleural effusion, mild left pleural effusion Acute worsening of CKD 4 (diabetic nephropathy) Acute metabolic/toxic encephalopathy secondary to OSCAR and infection UTI, history of recurrent UTI; yeast Generalized weakness PEG tube feeding Anemia of chronic disease large pleural effusion; pulm consulted, recommend chest tube Dr. Lara consulted, placed chest tube on 10/24 with ~1L out renal function, edema, and mentation improving slowly nephrology following, atient will need chronic dialysis; concerned with difficulty on transportation and feasibility of dialysis, states patient has been unsure in past whether he would want to pursue dialysis empiric antibiotics - cefepime and vanc; blood: negative, Ur: budding yeast. antibiotics dc'd by pulm diflucan started for yeast in urine on 10/25 PT consulted feeds via PEG tube s/p 1uPRBC for anemia, of chronic disease, reportedly had some hematuria per wound care for Morenita carias patient chronically ill; poor prognosis Code: DNR Dispo: anticipate hospitalization > 2 days considering dialysis vs hospice Time Spent Managing Pts Care (In Minutes): 45
[2021-10-25] MEDS: INSULIN -REGULAR HUMAN 50 UNIT/0.5 ML ML SQ SCH ×4 (07:30→22:09)
--- NOTE | 2021-10-25 07:48 | RAD REPORT ---
EXAM DESCRIPTION: Roger Single View10/25/2021 6:44 am CLINICAL HISTORY: Shortness of breath COMPARISON: October 24 FINDINGS: No significant change in the small pleural effusions. Right chest tube in place. The tip lies within the pleural space near the lateral right chest wall. Prominent skin fold right hemithorax. A pneumothorax is not seen. Persistence of mild bilateral pulmonary opacities and cardiomegaly. Postsurgical changes involve the chest
[2021-10-25] MEDS: CALCITROL 0.25 MCG CAP PO SCH (07:59)
[2021-10-25] MEDS: GABAPENTIN 300 MG CAP FT SCH ×2 (07:59→21:02)
[2021-10-25] MEDS: VITAMIN D 5,000 UNIT CAP PO SCH (07:59)
[2021-10-25] MEDS: ESCITALOPRAM 20 MG TAB FT SCH (07:59)
[2021-10-25] MEDS: SUCRALFATE 1GM/10ML UCUP FT SCH ×4 (07:59→21:02)
[2021-10-25] MEDS: NEPRO 1,000 ML BOT FT SCH ×4 (08:00→21:03)
[2021-10-25] MEDS: FUROSEMIDE 40 MG/4 ML VIAL IV SCH ×2 (08:00→17:01)
[2021-10-25] MEDS: CEFEPIME 1 GM in NA CHLORIDE 0.9% 100 ML IV SCH (08:01)
--- NOTE | 2021-10-25 08:35 | P.PN ---
Subjective Date of Service: 10/25/21 Chief Complaint: Pleural effusion status post right-sided chest tube Condition stable still confused agitated saturation has improved Review of Systems is unable to be obtained Physical Examination - Vital Signs Temperature: 97.6 F Blood Pressure: 169/65 Pulse: 66 Respirations: 13 Pulse Ox (%): 94 - Physical Exam General: Alert, Mild distress Respiratory: Clear to auscultation bilaterally, Normal air movement Cardiovascular: No edema, Regular rate/rhythm - Studies Microbiology Data (last 24 hrs): 10/22/21 09:59 Catheterized Urine [place] Count - Final >100,000 CFU/ML. 10/22/21 09:59 Catheterized Urine - Final Assessment And Plan - Current Problems (Diagnosis) (1) Pleural effusion Current Visit: Yes Status: Acute Plan: Patient is doing better pleural effusion has resolved with the chest tube for Gram stain is negative change to waterseal some budding yeast in the urine add Diflucan no clinical evidence of sepsis DC antibiotics for now blood pressure still mildly elevated DC Holcomb catheter transfer to the floor
[2021-10-25] MEDS: TRAMADOL HCL 50 MG TAB PO PRN (13:27)
[2021-10-25] MEDS: FLUCONAZOLE 200mg IVPB 200 MG/100 ML BAG IV SCH (17:01)
[2021-10-25] MEDS: EPOETIN ALFA 10,000 UNIT/ML VIAL SQ SCH (17:36)
[2021-10-25] MEDS: ALBUTEROL 2.5 MG/3 ML NEB SOL NEB PRN (19:40)
[2021-10-25] MEDS: TRAZODONE 50 MG TABLET PO SCH (21:02)
[2021-10-25] MEDS: ATORVASTATIN 80 MG TAB FT SCH (21:02)
--- NOTE | 2021-10-25 21:58 | P.PN ---
Date of Service: 10/25/21 Vital Signs Temp Pulse Resp BP Pulse Ox 98 F 65 18 164/70 H 91 10/25/21 15:39 10/25/21 15:39 10/25/21 15:39 10/25/21 15:39 10/25/21 15:39 Medications Acetaminophen (Acetaminophen 650mg/Rect Supp) 650 mg MT Q6HP PRN PRN Reason: TEMP > 100' F Albuterol Sulfate (Albuterol 2.5 Mg/3 Ml Neb [place]) 2.5 mg NEB Q6HP PRN PRN Reason: SHORTNESS OF BREATH Last Admin: 10/25/21 19:40 Dose: 2.5 mg Documented by: Atorvastatin Calcium (Atorvastatin 80 Mg Tab) 80 mg FT BEDTIME [facility] Last Admin: 10/25/21 21:02 Dose: 80 mg Documented by: Calcitriol (Calcitrol 0.25 Mcg Cap) 0.5 mcg PO DAILY [facility] Last Admin: 10/25/21 07:59 Dose: 0.5 mcg Documented by: Cholecalciferol (Vitamin D 5,000 Unit Cap) 5,000 unit PO DAILY [facility] Last Admin: 10/25/21 07:59 Dose: 5,000 unit Documented by: Diphenhydramine HCl (Diphenhydramine 50 Mg/Ml Vial) 12.5 mg IV Q6H PRN PRN Reason: ITCHING Enteral Nutritional Formula (Nepro 1,000 Ml Bot) 360 ml FT ACHS [facility] Last Admin: 10/25/21 21:03 Dose: 360 ml Documented by: Epoetin Cody (Epoetin Cody 10,000 Unit/Ml Vial) 10,000 unit SQ M,W,F [facility] Last Admin: 10/25/21 17:36 Dose: 10,000 unit Documented by: Escitalopram Oxalate (Escitalopram 20 Mg Tab) 40 mg FT DAILY [facility] Last Admin: 10/25/21 07:59 Dose: 40 mg Documented by: Furosemide (Furosemide 40 Mg/4 Ml Vial) 40 mg IV BIDL [facility] Last Admin: 10/25/21 17:01 Dose: 40 mg Documented by: Gabapentin (Gabapentin 300 Mg Cap) 300 mg FT BID [facility] Last Admin: 10/25/21 21:02 Dose: 300 mg Documented by: Heparin Sodium (Porcine) (Heparin 5000 Unit/Ml 1 Ml Vial) 5,000 unit SQ Q8HR [facility] Last Admin: 10/23/21 01:00 Dose: Not Given Documented by: Heparin Sodium (Porcine) (Heparin 1,000 Unit/Ml Vial) 4,000 unit IV EVERY HD PRN PRN Reason: DIALYSIS CATHETER CARE Last Admin: 10/24/21 19:32 Dose: 4,000 unit Documented by: Albumin Human (Albumin 25%) 50 mls @ 100 mls/hr IV EVERY HD [facility] Fluconazole (Diflucan 200 Mg/100 Ml Ivpb (Premix)) 200 mg in 100 mls @ 100 mls/hr IV Q24H [facility]; Protocol Last Admin: 10/25/21 17:01 Dose: 100 mls Documented by: Potassium Phosphate 20 mm/ (Sodium Chloride) 500 mls @ 125 mls/hr IV 1X ONE; Protocol Stop: 10/26/21 01:59 Insulin Human Regular (Insulin -Regular Human 50 Unit/0.5 Ml Ml) 0 unit SQ ACHS [facility]; Protocol Last Admin: 10/25/21 16:29 Dose: Not Given Documented by: Mannitol (Mannitol 25% 12.5 Gm/50 Ml Vial) 12.5 gm IV EVERY HD PRN PRN Reason: Titrate to SBP (MUST DEFINE) Ondansetron HCl (Ondansetron 4 Mg/2 Ml Vial) 4 mg IV Q6HP PRN PRN Reason: NAUSEA / VOMITING Sodium Chloride (Flush Normal Saline 10 Ml) 10 ml IV BID [facility] Last Admin: 10/25/21 21:03 Dose: 10 ml Documented by: Sucralfate (Sucralfate 1gm/10ml Ucup) 1 gm FT ACHS [facility] Last Admin: 10/25/21 21:02 Dose: 1 gm Documented by: Tramadol HCl (Tramadol Hcl 50 Mg Tab) 50 mg PO Q4H PRN PRN Reason: Pain scale 5-7 (Moderate) Last Admin: 10/25/21 13:27 Dose: 50 mg Documented by: Trazodone HCl (Trazodone 50 Mg Tablet) 50 mg PO BEDTIME [facility] Last Admin: 10/25/21 21:02 Dose: 50 mg Documented by: Microbiology Results 10/22/21 09:59 Catheterized Urine [place] Count - Final >100,000 CFU/ML. 10/22/21 09:59 Catheterized Urine - Final 10/22/21 08:25 Blood - Blood Aerobic Blood Culture - Preliminary No growth in 24 hours. 10/22/21 08:25 Blood - Blood Anaerobic Blood Culture - Preliminary No growth in 24 hours. 10/22/21 08:40 Blood - Blood Aerobic Blood Culture - Preliminary No growth in 24 hours. 10/22/21 08:40 Blood - Blood Anaerobic Blood Culture - Preliminary No growth in 24 hours. Assessment/ Plan: Nephrology Improving dyspnea No chest pain Weakness and fatigue No acute events overnight Vitals, medications, blood work and imaging reviewed in the chart. General: In no apparent distress, Cooperative HEENT: Atraumatic Neck: Supple Respiratory: Diminished Cardiovascular: Regular rate/rhythm, Edema Gastrointestinal: Soft and benign, Non-distended Musculoskeletal: No clubbing, No contractures Integumentary: No rashes, No cyanosis Neurological: Normal speech Greater than 30min patient care. Blood work reviewed in the chart. Imagings Data: EXAM DESCRIPTION: RAD - Chest Single View - 10/22/2021 9:10 am CLINICAL HISTORY: Cough;Congestion COMPARISON: Chest Single View dated 09/29/2021; Chest Pa And Lat (2 Views) dated 08/25/2021; Chest Single View dated 08/24/2021; Chest Single View dated 07/08/2021; Renal Biopsy\CT dated 09/08/2021 FINDINGS: Lines: None. Lungs: Decreased lung volumes on the right. Increased widespread airspace disease. Pleural: Bilateral pleural effusions. Cardiac: Cardiomegaly . Bones: No acute fractures. Sternotomy. Other: IMPRESSION: Worsening of widespread interstitial and airspace opacities that probably reflects edema though pneumonia difficult to entirely exclude radiographically. Bilateral pleural effusions. Conclusions/Impression: OSCAR vs Progressive CKD CKD IV with proteinuria ESRD with HD initiated 4090816 -No NSAIDs -Acute HD as ordered -Plan for tunneled CVC -HBV panel pending -Patient considering dialysis vs hospice Hypokalemia -Encourage nutrition -Replete potassium as ordered HypoPO4 -Replete PO4 HTN with CKD/ CHF -Monitor BP -HD with UF Diastolic CHF, A/C Pleural Effusion -Low sodium diet -HD with UF -Continue Lasix -Chest tube, pleural fluid pending DM II with CKD DM Nephropathy -RISS Moderate malnutrition -Continue Nepro TF Anemia in chronic illness/ CKD -Retacrit MWF CKD MBD -Continue Vitamin D Toxic Metabolic Encephalopathy Uremia -Acute HD as ordered Case reviewed with Dr. Carrera and Dr. Lara
[2021-10-25] MEDS ORDERED: POTASSIUM PHOS 20 MM in NA CHLORIDE 0.9% 500 ML IV ONE (22:00)
[2021-10-26 05:27] LABS: Absolute Lymphocytes (CBC) 0.7 K/uL (0.7-4.9); Hematocrit 29.3 % (39.6-49.0); MPV 10.9 fL (7.6-11.3); RBC Red Blood Cell Count 3.97 M/uL (4.33-5.43)
[2021-10-26 05:42] LABS: Magnesium 2.7 mg/dL (1.8-2.4); Phosphorus 1.7 mg/dL (2.5-4.9); Potassium 3.6 mmol/L (3.5-5.1); Uric Acid 5.4 mg/dL (3.5-7.2)
--- NOTE | 2021-10-26 06:16 | P.PN ---
Date of Service: 10/26/21 Subjective: stable, slight improvement without new complaints/symptoms some confusion / decreased alertness persists Right thoracostomy tube output improved ROS: 10 point ROS as noted above, otherwise negative Physical exam GEN: confused, fatigued appearing, arousable, AOx3 HEENT: Normal conjunctiva, sclera anicteric CV: Regular rate and rhythm, trace to 1+ b/l lower extremity edema Pulm: Nonlabored respirations on room air, diminished at R base, right thoracostomy tube in place ABD: Soft, nontender, nondistended, PEG in place Integumentary: Morenita carias ulcer Neuro: confused, moves all extremities hernandez in place Problem List Moderatelarge right pleural effusion, mild left pleural effusion Acute worsening of CKD 4 (diabetic nephropathy) Acute metabolic/toxic encephalopathy secondary to OSCAR and infection UTI, history of recurrent UTI; yeast Generalized weakness PEG tube feeding Anemia of chronic disease large pleural effusion; pulm consulted, recommend chest tube Dr. Lara consulted, placed chest tube on 10/24 with ~1L out. Output improving. Possibly to be removed 10/26 renal function, edema, and mentation improving slowly nephrology following, patient will need chronic dialysis; concerned with difficulty on transportation and feasibility of dialysis, states patient has been unsure in past whether he would want to pursue dialysis empiric antibiotics - cefepime and vanc started initially; blood: negative, Ur: budding yeast. antibiotics dc'd by pulalmita diflucan started for yeast in urine on 10/25 PT consulted feeds via PEG tube s/p 1uPRBC for anemia, of chronic disease, reportedly had some hematuria per wound care for Morenita carias patient chronically ill; poor prognosis Code: DNR Dispo: anticipate hospitalization > 2 days considering dialysis vs hospice, plan to discuss further today Time Spent Managing Pts Care (In Minutes): 45
[2021-10-26] MEDS: INSULIN -REGULAR HUMAN 50 UNIT/0.5 ML ML SQ SCH ×4 (07:30→22:37)
--- NOTE | 2021-10-26 07:51 | RAD REPORT ---
EXAM DESCRIPTION: RAD - Chest Single View - 10/26/2021 6:42 am CLINICAL HISTORY: R chest tube, f/u effusion / opacities COMPARISON: October 25 TECHNIQUE: AP portable chest image was obtained 10/26/2021 6:42 am . FINDINGS: Right-sided pleural drainage catheter remains in place. No pneumothorax seen on portable i maging. Anterior only pneumothorax cannot be entirely excluded on a portable examination. Right lung base opacification has worsened slightly from prior imaging. This could be atelectasis, in filtrate or a combination. Left lung field is slightly better aerated than on the comparison examinat ion. Enlarged cardiac silhouette noted. Vascular engorgement remains. Trachea is still in the midline. No enlarging pleural effusion. IMPRESSION: Right-sided pleural drainage catheter in place. No pneumothorax identified. Increased right base opacification could be and full trach, atelectasis or a combination. Stable cardiomegaly.
--- NOTE | 2021-10-26 08:35 | P.PN ---
Subjective Date of Service: 10/26/21 Chief Complaint: Pleural effusion status post right-sided chest tube Patient has improved significantly is more alert responsive Review of Systems General: Weakness Respiratory: Shortness of Breath Physical Examination - Vital Signs Temperature: 99.5 F Blood Pressure: 170/70 Pulse: 68 Respirations: 18 Pulse Ox (%): 95 - Physical Exam General: Alert, Oriented x1 Respiratory: Clear to auscultation bilaterally, Normal air movement Cardiovascular: No edema, Regular rate/rhythm Assessment And Plan - Current Problems (Diagnosis) (1) Pleural effusion Current Visit: Yes Status: Acute Plan: Patient is doing much better chest x-ray shows right lower lobe atelectasis or infiltrate no evidence of active sepsis chemistries on pleural fluid are pending plan to remove the chest tube today
[2021-10-26] MEDS ORDERED: POTASSIUM PHOS 20 MM in NA CHLORIDE 0.9% 500 ML IV ONE (09:00)
[2021-10-26] MEDS: NEPRO 1,000 ML BOT FT SCH ×4 (09:19→22:26)
[2021-10-26] MEDS: SUCRALFATE 1GM/10ML UCUP FT SCH ×4 (09:19→22:25)
[2021-10-26] MEDS: CALCITROL 0.25 MCG CAP PO SCH (09:20)
[2021-10-26] MEDS: FUROSEMIDE 40 MG/4 ML VIAL IV SCH ×2 (09:20→16:45)
[2021-10-26] MEDS: VITAMIN D 5,000 UNIT CAP PO SCH (09:20)
[2021-10-26] MEDS: GABAPENTIN 300 MG CAP FT SCH ×2 (09:20→22:25)
[2021-10-26] MEDS: ESCITALOPRAM 20 MG TAB FT SCH (09:20)
[2021-10-26] MEDS: TRAMADOL HCL 50 MG TAB PO PRN (11:42)
[2021-10-26] MEDS ORDERED: POTASSIUM 25 MEQ EFFERV TAB PO ONE (16:30)
[2021-10-26] MEDS: FLUCONAZOLE 200mg IVPB 200 MG/100 ML BAG IV SCH (16:45)
--- NOTE | 2021-10-26 22:02 | P.PN ---
Date of Service: 10/26/21 Vital Signs Temp Pulse Resp BP Pulse Ox 98.6 F 72 17 175/65 H 99 10/26/21 20:00 10/26/21 20:00 10/26/21 20:00 10/26/21 20:00 10/26/21 20:00 Medications Acetaminophen (Acetaminophen 650mg/Rect Supp) 650 mg DE Q6HP PRN PRN Reason: TEMP > 100' F Albuterol Sulfate (Albuterol 2.5 Mg/3 Ml Neb [place]) 2.5 mg NEB Q6HP PRN PRN Reason: SHORTNESS OF BREATH Last Admin: 10/25/21 19:40 Dose: 2.5 mg Documented by: Atorvastatin Calcium (Atorvastatin 80 Mg Tab) 80 mg FT BEDTIME [facility] Last Admin: 10/25/21 21:02 Dose: 80 mg Documented by: Calcitriol (Calcitrol 0.25 Mcg Cap) 0.5 mcg PO DAILY [facility] Last Admin: 10/26/21 09:20 Dose: 0.5 mcg Documented by: Cholecalciferol (Vitamin D 5,000 Unit Cap) 5,000 unit PO DAILY [facility] Last Admin: 10/26/21 09:20 Dose: 5,000 unit Documented by: Diphenhydramine HCl (Diphenhydramine 50 Mg/Ml Vial) 12.5 mg IV Q6H PRN PRN Reason: ITCHING Enteral Nutritional Formula (Nepro 1,000 Ml Bot) 360 ml FT ACHS [facility] Last Admin: 10/26/21 16:45 Dose: 360 ml Documented by: Epoetin Cody (Epoetin [place] 10,000 Unit/Ml Vial) 10,000 unit SQ M,W,F [facility] Last Admin: 10/25/21 17:36 Dose: 10,000 unit Documented by: Escitalopram Oxalate (Escitalopram 20 Mg Tab) 40 mg FT DAILY [facility] Last Admin: 10/26/21 09:20 Dose: 40 mg Documented by: Furosemide (Furosemide 40 Mg/4 Ml Vial) 40 mg IV BIDL [facility] Last Admin: 10/26/21 16:45 Dose: 40 mg Documented by: Gabapentin (Gabapentin 300 Mg Cap) 300 mg FT BID [facility] Last Admin: 10/26/21 09:20 Dose: 300 mg Documented by: Heparin Sodium (Porcine) (Heparin 5000 Unit/Ml 1 Ml Vial) 5,000 unit SQ Q8HR [facility] Last Admin: 10/23/21 01:00 Dose: Not Given Documented by: Heparin Sodium (Porcine) (Heparin 1,000 Unit/Ml Vial) 4,000 unit IV EVERY HD PRN PRN Reason: DIALYSIS CATHETER CARE Last Admin: 10/24/21 19:32 Dose: 4,000 unit Documented by: Albumin Human (Albumin 25%) 50 mls @ 100 mls/hr IV EVERY HD [facility] Fluconazole (Diflucan 200 Mg/100 Ml Ivpb (Premix)) 200 mg in 100 mls @ 100 mls/hr IV Q24H [facility]; Protocol Stop: 10/27/21 16:59 Last Admin: 10/26/21 16:45 Dose: 100 mls Documented by: Insulin Human Regular (Insulin -Regular Human 50 Unit/0.5 Ml Ml) 0 unit SQ [facility]; Protocol Last Admin: 10/26/21 16:30 Dose: Not Given Documented by: Mannitol (Mannitol 25% 12.5 Gm/50 Ml Vial) 12.5 gm IV EVERY HD PRN PRN Reason: Titrate to SBP (MUST DEFINE) Ondansetron HCl (Ondansetron 4 Mg/2 Ml Vial) 4 mg IV Q6HP PRN PRN Reason: NAUSEA / VOMITING Sodium Chloride (Flush Normal Saline 10 Ml) 10 ml IV BID [facility] Last Admin: 10/26/21 09:00 Dose: 10 ml Documented by: Sucralfate (Sucralfate 1gm/10ml Ucup) 1 gm FT [facility] Last Admin: 10/26/21 16:45 Dose: 1 gm Documented by: Tramadol HCl (Tramadol Hcl 50 Mg Tab) 50 mg PO Q4H PRN PRN Reason: Pain scale 5-7 (Moderate) Last Admin: 10/26/21 11:42 Dose: 50 mg Documented by: Trazodone HCl (Trazodone 50 Mg Tablet) 50 mg PO BEDTIME [facility] Last Admin: 10/25/21 21:02 Dose: 50 mg Documented by: Microbiology Results 10/22/21 09:59 Catheterized Urine [place] Count - Final >100,000 CFU/ML. 10/22/21 09:59 Catheterized Urine - Final 10/22/21 08:25 Blood - Blood Aerobic Blood Culture - Preliminary No growth in 24 hours. 10/22/21 08:25 Blood - Blood Anaerobic Blood Culture - Preliminary No growth in 24 hours. 10/22/21 08:40 Blood - Blood Aerobic Blood Culture - Preliminary No growth in 24 hours. 10/22/21 08:40 Blood - Blood Anaerobic Blood Culture - Preliminary No growth in 24 hours. Assessment/ Plan: Nephrology Improving dyspnea No chest pain Weakness and fatigue No acute events overnight Vitals, medications, blood work and imaging reviewed in the chart. General: In no apparent distress, Cooperative HEENT: Atraumatic Neck: Supple Respiratory: Diminished Cardiovascular: Regular rate/rhythm, Edema Gastrointestinal: Soft and benign, Non-distended Musculoskeletal: No clubbing, No contractures Integumentary: No rashes, No cyanosis Neurological: Normal speech Blood work reviewed in the chart. Imagings Data: EXAM DESCRIPTION: RAD - Chest Single View - 10/22/2021 9:10 am CLINICAL HISTORY: Cough;Congestion COMPARISON: Chest Single View dated 09/29/2021; Chest Pa And Lat (2 Views) dated 08/25/2021; Chest Single View dated 08/24/2021; Chest Single View dated 07/08/2021; Renal Biopsy\CT dated 09/08/2021 FINDINGS: Lines: None. Lungs: Decreased lung volumes on the right. Increased widespread airspace disease. Pleural: Bilateral pleural effusions. Cardiac: Cardiomegaly . Bones: No acute fractures. Sternotomy. Other: IMPRESSION: Worsening of widespread interstitial and airspace opacities that probably reflects edema though pneumonia difficult to entirely exclude radiographically. Bilateral pleural effusions. Conclusions/Impression: OSCAR vs Progressive CKD CKD IV with proteinuria ESRD with HD initiated 4090816 -No NSAIDs -Acute HD as ordered -HBV panel pending -Patient considering dialysis vs hospice Hypokalemia -Encourage nutrition -Replete potassium prn HypoPO4 -Replete PO4 prn HTN with CKD/ CHF -Monitor BP -HD with UF Diastolic CHF, A/C Pleural Effusion -Low sodium diet -HD with UF -Continue Lasix DM II with CKD DM Nephropathy -RISS Moderate malnutrition -Continue Nepro TF Anemia in chronic illness/ CKD -Retacrit MWF CKD MBD -Continue Vitamin D Toxic Metabolic Encephalopathy Uremia -Acute HD as ordered Case reviewed with Dr. Carrera
[2021-10-26] MEDS: ATORVASTATIN 80 MG TAB FT SCH (22:25)
[2021-10-26] MEDS: TRAZODONE 50 MG TABLET PO SCH (22:25)
[2021-10-27 05:56] LABS: Hematocrit 29.7 % (39.6-49.0); MPV 10.6 fL (7.6-11.3)
[2021-10-27 06:15] LABS: Magnesium 2.5 mg/dL (1.8-2.4); Potassium 4.1 mmol/L (3.5-5.1)
--- NOTE | 2021-10-27 06:29 | P.PN ---
Date of Service: 10/27/21 Subjective: patient with confusion. alert. states he wants to go home ROS: 10 point ROS as noted above, otherwise negative / difficulty to obtain Physical exam GEN: confused, fatigued appearing, arousable, AOx2 HEENT: Normal conjunctiva, sclera anicteric CV: Regular rate and rhythm, trace to 1+ b/l lower extremity edema Pulm: Non-labored respirations on room air, diminished at R base, right thoracostomy tube in place, dried blood on dressing ABD: Soft, nondistended, PEG in place Integumentary: L heel ulcer Neuro: confused, moves extremities hernandez in place Problem List Moderatelarge right pleural effusion, mild left pleural effusion Acute worsening of CKD 4 (diabetic nephropathy) Acute metabolic/toxic encephalopathy secondary to OSCAR and infection UTI, history of recurrent UTI; yeast Generalized weakness PEG tube feeding Anemia of chronic disease large pleural effusion; pulm consulted, recommended chest tube Dr. Lara consulted, placed chest tube on 10/24 with ~1L out. Output improving. plan for dc 10/27 renal function, edema, and mentation improving slowly nephrology following, initially felt patient may need chronic dialysis. was concerned with difficulty in transportation and feasibility of dialysis. Renal function improving, and now less likely to require initiation of chronic dialysis at this time. Plan for dialysis tomorrow, femoral line removal afterwards. empiric antibiotics - cefepime and vanc started initially; blood: negative, Ur: budding yeast. antibiotics dc'd by pulm diflucan started for yeast in urine on 10/25 PT consulted feeds via PEG tube s/p 1uPRBC for anemia, of chronic disease, reportedly had some hematuria per wound care for L jv patient chronically ill; poor prognosis Code: DNR Dispo: anticipate hospitalization > 2 days considering dialysis vs hospice vs resuming home care Time Spent Managing Pts Care (In Minutes): 45
[2021-10-27] MEDS: INSULIN -REGULAR HUMAN 50 UNIT/0.5 ML ML SQ SCH ×4 (07:30→20:55)
[2021-10-27] MEDS: POTASS/SODIUM PHOSPHATE 1 PKT POWD.PACK PO SCH ×3 (08:25→10:20)
[2021-10-27] MEDS: FUROSEMIDE 40 MG/4 ML VIAL IV SCH ×2 (08:25→16:00)
[2021-10-27] MEDS: SUCRALFATE 1GM/10ML UCUP FT SCH ×4 (08:25→20:55)
[2021-10-27] MEDS: ESCITALOPRAM 20 MG TAB FT SCH (08:26)
[2021-10-27] MEDS: VITAMIN D 5,000 UNIT CAP PO SCH (08:26)
[2021-10-27] MEDS: CALCITROL 0.25 MCG CAP PO SCH (08:26)
[2021-10-27] MEDS: NEPRO 1,000 ML BOT FT SCH ×4 (08:26→20:55)
[2021-10-27] MEDS: GABAPENTIN 300 MG CAP FT SCH ×2 (08:27→20:55)
[2021-10-27] MEDS: ALBUTEROL 2.5 MG/3 ML NEB SOL NEB PRN (10:25)
[2021-10-27] MEDS: TRAMADOL HCL 50 MG TAB PO PRN (11:12)
--- NOTE | 2021-10-27 13:38 | RAD REPORT ---
EXAM DESCRIPTION: RAD - Chest Single View - 10/27/2021 1:30 pm CLINICAL HISTORY: chest tubed removed Chest pain. COMPARISON: Chest Single View dated 10/26/2021; Chest Single View dated 10/25/2021; Chest Single View dated 10/24/2021; Chest Single View dated 10/24/2021 FINDINGS: Portable technique limits examination quality. Right-sided small bore chest tube has been removed. No right-sided pneumothorax seen. Bilateral pulmo nary opacities, greater on the right appears essentially unchanged. The heart is moderately enlarged. Sternotomy wires present.
[2021-10-27] MEDS: EPOETIN ALFA 10,000 UNIT/ML VIAL SQ SCH (15:59)
[2021-10-27] MEDS: FLUCONAZOLE 200mg IVPB 200 MG/100 ML BAG IV SCH (15:59)
[2021-10-27] MEDS: TRAZODONE 50 MG TABLET PO SCH (20:55)
[2021-10-27] MEDS: ATORVASTATIN 80 MG TAB FT SCH (20:55)
[2021-10-28 04:08] LABS: Hematocrit 29.3 % (39.6-49.0); MPV 10.5 fL (7.6-11.3); RBC Red Blood Cell Count 3.96 M/uL (4.33-5.43)
[2021-10-28 04:24] LABS: Magnesium 2.4 mg/dL (1.8-2.4); Phosphorus 1.9 mg/dL (2.5-4.9); Potassium 4.2 mmol/L (3.5-5.1)
--- NOTE | 2021-10-28 06:17 | P.PN ---
Date of Service: 10/28/21 Subjective: No acute events overnight Patient just received pain medication half an hour ago, very sleepy but arousable States is okay Denies pain where the thoracostomy tube was removed yesterday ROS: 10 point ROS as noted above, otherwise negative / difficulty to obtain Physical exam GEN: confused, fatigued appearing, arousable, chronically ill-appearing HEENT: Normal conjunctiva, sclera anicteric CV: Regular rate and rhythm, trace b/l lower extremity edema Pulm: Non-labored respirations on room air, diminished at R base, right thoracostomy tube dressing in place ABD: Soft, nondistended, PEG in place Integumentary: L heel ulcer Neuro: confused, generalized weakness hernandez in place Problem List Moderatelarge right pleural effusion, mild left pleural effusion, s/p R thoracostomy tube placement and subsequent removal Acute worsening of CKD 4 (diabetic nephropathy) Acute metabolic/toxic encephalopathy secondary to OSCAR and infection UTI, history of recurrent UTI; yeast Generalized weakness PEG tube feeding Anemia of chronic disease large pleural effusion; Dr. Lara consulted, placed chest tube on 10/24 with ~1L out. Output improving. Discontinued 10/27 Repeat chest x-ray ordered for today Renal function worsening, nephrology consulted, patient underwent dialysis. Initially it was felt the patient may need to start chronic dialysis, which the patient and were discussing and considering hospice Patient's renal function improved slightly, no was then felt that initiation of chronic dialysis was not immediately required. Patient undergo dialysis today Discussed with general surgery, will remove temporary dialysis catheter (right femoral) tomorrow Given the significant large effusion, cannot rule out pneumonia, and UA was concerning for UTI. Patient was initially started empirically on cefepime and vancomycin. Pulmonology felt there is no evidence of sepsis and discontinued antibiotics. Urine grew budding yeast, patient remained afebrile without leukocytosis. Completed 3 days of IV Diflucan (). Patient has been having waxing waning mentation, at times does not appear to have decision-making capacity Concern for aspiration, nothing by mouth, feeds and medications via PEG tube s/p 1uPRBC for anemia, of chronic disease, reportedly had some hematuria per , which is resolved wound care for L heel patient chronically ill; poor prognosis Code: DNR Dispo: home to resume home health considering hospice, possibly in the future Time Spent Managing Pts Care (In Minutes): 45
--- NOTE | 2021-10-28 06:32 | P.PN ---
Date of Service: 10/27/21 Vital Signs Temp Pulse Resp BP Pulse Ox 98.6 F 73 17 141/65 H 95 10/28/21 04:00 10/28/21 04:00 10/28/21 04:00 10/28/21 04:00 10/28/21 04:00 Medications Acetaminophen (Acetaminophen 650mg/Rect Supp) 650 mg ME Q6HP PRN PRN Reason: TEMP > 100' F Albuterol Sulfate (Albuterol 2.5 Mg/3 Ml Neb [place]) 2.5 mg NEB Q6HP PRN PRN Reason: SHORTNESS OF BREATH Last Admin: 10/27/21 10:25 Dose: 2.5 mg Documented by: Atorvastatin Calcium (Atorvastatin 80 Mg Tab) 80 mg FT BEDTIME [facility] Last Admin: 10/27/21 20:55 Dose: 80 mg Documented by: Calcitriol (Calcitrol 0.25 Mcg Cap) 0.5 mcg PO DAILY [facility] Last Admin: 10/27/21 08:26 Dose: 0.5 mcg Documented by: Cholecalciferol (Vitamin D 5,000 Unit Cap) 5,000 unit PO DAILY [facility] Last Admin: 10/27/21 08:26 Dose: 5,000 unit Documented by: Diphenhydramine HCl (Diphenhydramine 50 Mg/Ml Vial) 12.5 mg IV Q6H PRN PRN Reason: ITCHING Enteral Nutritional Formula (Nepro 1,000 Ml Bot) 360 ml FT ACHS [facility] Last Admin: 10/27/21 20:55 Dose: 360 ml Documented by: Epoetin Cody (Epoetin Cody 10,000 Unit/Ml Vial) 10,000 unit SQ M,W,F [facility] Last Admin: 10/27/21 15:59 Dose: 10,000 unit Documented by: Escitalopram Oxalate (Escitalopram 20 Mg Tab) 40 mg FT DAILY [facility] Last Admin: 10/27/21 08:26 Dose: 40 mg Documented by: Furosemide (Furosemide 40 Mg/4 Ml Vial) 40 mg IV BIDL [place] Last Admin: 10/27/21 16:00 Dose: 40 mg Documented by: Gabapentin (Gabapentin 300 Mg Cap) 300 mg FT BID [facility] Last Admin: 10/27/21 20:55 Dose: 300 mg Documented by: Heparin Sodium (Porcine) (Heparin 5000 Unit/Ml 1 Ml Vial) 5,000 unit SQ Q8HR [place] Last Admin: 10/23/21 01:00 Dose: Not Given Documented by: Heparin Sodium (Porcine) (Heparin 1,000 Unit/Ml Vial) 4,000 unit IV EVERY HD PRN PRN Reason: DIALYSIS [facility]HE[facility] CARE Last Admin: 10/24/21 19:32 Dose: 4,000 unit Documented by: Albumin Human (Albumin 25%) 50 mls @ 100 mls/hr IV EVERY HD [facility] Insulin Human Regular (Insulin -Regular Human 50 Unit/0.5 Ml Ml) 0 unit SQ [facility]; Protocol Last Admin: 10/27/21 20:55 Dose: 3 unit Documented by: Mannitol (Mannitol 25% 12.5 Gm/50 Ml Vial) 12.5 gm IV EVERY HD PRN PRN Reason: Titrate to SBP (MUST DEFINE) Ondansetron HCl (Ondansetron 4 Mg/2 Ml Vial) 4 mg IV Q6HP PRN PRN Reason: NAUSEA / VOMITING Potassium Phos/Sodium Phos (Potass/Sodium Phosphate 1 Pkt Powd.Pack) 2 pkt FT QID [facility] Stop: 10/28/21 21:01 Sodium Chloride (Flush Normal Saline 10 Ml) 10 ml IV BID [facility] Last Admin: 10/27/21 20:55 Dose: 10 ml Documented by: Sucralfate (Sucralfate 1gm/10ml Ucup) 1 gm FT [facility] Last Admin: 10/27/21 20:55 Dose: 1 gm Documented by: Tramadol HCl (Tramadol Hcl 50 Mg Tab) 50 mg PO Q4H PRN PRN Reason: Pain scale 5-7 (Moderate) Last Admin: 10/27/21 11:12 Dose: 50 mg Documented by: Trazodone HCl (Trazodone 50 Mg Tablet) 50 mg PO BEDTIME [facility] Last Admin: 10/27/21 20:55 Dose: 50 mg Documented by: Microbiology Results 10/22/21 08:25 Blood - Blood Aerobic Blood Culture - Final No growth in 5 days. 10/22/21 08:25 Blood - Blood Anaerobic Blood Culture - Final No growth in 5 days. 10/22/21 08:40 Blood - Blood Aerobic Blood Culture - Final No growth in 5 days. 10/22/21 08:40 Blood - Blood Anaerobic Blood Culture - Final No growth in 5 days. 10/22/21 09:59 Catheterized Urine [place] Count - Final >100,000 CFU/ML. 10/22/21 09:59 Catheterized Urine - Final Assessment/ Plan: Nephrology Waxing and waning mental status No dyspnea No chest pain No acute events overnight Vitals, medications, blood work and imaging reviewed in the chart. General: In no apparent distress, Cooperative HEENT: Atraumatic Neck: Supple Respiratory: Diminished Cardiovascular: Regular rate/rhythm, Edema Gastrointestinal: Soft and benign, Non-distended Musculoskeletal: No clubbing, No contractures Integumentary: No rashes, No cyanosis Neurological: Normal speech Blood work reviewed in the chart. Imagings Data: EXAM DESCRIPTION: RAD - Chest Single View - 10/22/2021 9:10 am CLINICAL HISTORY: Cough;Congestion COMPARISON: Chest Single View dated 09/29/2021; Chest Pa And Lat (2 Views) dated 08/25/2021; Chest Single View dated 08/24/2021; Chest Single View dated 07/08/2021; Renal Biopsy\CT dated 09/08/2021 FINDINGS: Lines: None. Lungs: Decreased lung volumes on the right. Increased widespread airspace disease. Pleural: Bilateral pleural effusions. Cardiac: Cardiomegaly . Bones: No acute fractures. Sternotomy. Other: IMPRESSION: Worsening of widespread interstitial and airspace opacities that probably reflects edema though pneumonia difficult to entirely exclude radiographically. Bilateral pleural effusions. Conclusions/Impression: OSCAR vs Progressive CKD CKD IV with proteinuria HD initiated [id number]. OSCAR may have improved with HD; may be monitored off HD for improvement. -No NSAIDs -Acute HD as ordered -HBV panel pending -Not a good candidate for PD -Patient's considering dialysis vs hospice Hypokalemia -Encourage nutrition -Replete potassium prn HypoPO4 -Replete PO4 HTN with CKD/ CHF -Monitor BP -HD with UF Diastolic CHF, A/C Pleural Effusion -Low sodium diet -HD with UF -Continue Lasix DM II with CKD DM Nephropathy -RISS Moderate malnutrition -Continue Nepro TF Anemia in chronic illness/ CKD -Retacrit MWF CKD MBD -Continue Vitamin D Toxic Metabolic Encephalopathy Uremia -Acute HD as ordered Case reviewed with Dr. Carrera and Mrs. Anderson
[2021-10-28] MEDS: INSULIN -REGULAR HUMAN 50 UNIT/0.5 ML ML SQ SCH ×4 (07:30→21:21)
[2021-10-28] MEDS ORDERED: POTASS/SODIUM PHOSPHATE 1 PKT POWD.PACK FT SCH ×2 (08:00→09:00)
[2021-10-28] MEDS: NEPRO 1,000 ML BOT FT SCH ×4 (08:47→21:00)
[2021-10-28] MEDS: GABAPENTIN 300 MG CAP FT SCH (08:47)
[2021-10-28] MEDS: SUCRALFATE 1GM/10ML UCUP FT SCH ×4 (08:47→21:21)
[2021-10-28] MEDS: FUROSEMIDE 40 MG/4 ML VIAL IV SCH ×2 (08:47→16:53)
[2021-10-28] MEDS: POTASS/SODIUM PHOSPHATE 1 PKT POWD.PACK PO SCH ×3 (08:47→10:29)
[2021-10-28] MEDS: TRAMADOL HCL 50 MG TAB PO PRN ×3 (08:48→21:19)
[2021-10-28] MEDS: ESCITALOPRAM 20 MG TAB FT SCH (08:48)
[2021-10-28] MEDS: CALCITROL 0.25 MCG CAP PO SCH (08:48)
[2021-10-28] MEDS: VITAMIN D 5,000 UNIT CAP PO SCH (08:48)
[2021-10-28] MEDS ORDERED: POTASS/SODIUM PHOSPHATE 1 PKT POWD.PACK PO ONE (09:00)
--- NOTE | 2021-10-28 10:36 | RAD REPORT ---
EXAM DESCRIPTION: RAD - Chest Single View - 10/28/2021 10:19 am CLINICAL HISTORY: f/u effusion, opacities COMPARISON: Chest Single View dated 10/27/2021; Chest Single View dated 10/26/2021; Chest Single View dated 10/25/2021; Chest Single View dated 10/24/2021; Chest Single View dated 10/24/2021; Thorax Wo Con dated 10/23/2021 FINDINGS: Lines: None. Lungs: Widespread pulmonary opacities bilaterally. Pleural: Effusions. Cardiac: Cardiomegaly. Bones: No acute fractures. Other: Sternotomy. IMPRESSION: Similar airspace disease and small effusions bilaterally likely reflecting pulmonary callie ma.
[2021-10-28] MEDS: DIPHENHYDRAMINE 50 MG/ML VIAL IV PRN (16:52)
[2021-10-28] MEDS: ALBUTEROL 2.5 MG/3 ML NEB SOL NEB PRN (18:06)
[2021-10-28] MEDS ORDERED: SCOPOLAMINE HYDROBROMIDE PATCH TD SCH (21:00)
[2021-10-28] MEDS: TRAZODONE 50 MG TABLET PO SCH (21:15)
[2021-10-28] MEDS: GABAPENTIN 100 MG CAP FT SCH (21:15)
[2021-10-28] MEDS: ATORVASTATIN 80 MG TAB FT SCH (21:19)
--- NOTE | 2021-10-28 21:31 | PN ---
Date of Progress Note: 10/28/2021 History: The patient is seen at [facility], room 206. Discussed also with the dialysis nurse. Patient was having dialysis at that time. Reviewed with the dialysis nurse. Patient tolera tennille dialysis well. Volume status seems okay. Blood pressures seem reasonable. Physical Examination: Vital Signs: On my examination, last blood pressure was 145/85, pulse about 80, respirations around 14. General: The patient seems very frail. He is alert, but does not communicate much. Does not look l letty he is in any discomfort or pain currently, but he does seem very frail and cachectic even compare d to when I had seen him a few weeks back at [facility]. Abdomen: Soft. He has a PEG tube in place. He has a Holcomb in place. He has a groin catheter on e right side in place as well. There is no bleeding from the area. Lungs: Clear to auscultation. Extremities: He has no swelling in his lower extremities and the skin seems to be on the dry side. Medications: Reviewed. The patient is getting Tylenol p.r.n. He is on albuterol, albumin p.r.n. an d with dialysis. He is on vitamin D replacement. He is getting enteral nutritional formula with Nep ro. He gets 10,000 units of EPO with Saturday, Saturday, Saturday dialysis. He is on Lexapro, furosemi de, Zofran p.r.n., sucralfate, tramadol p.r.n., and trazodone. Assessment/plan: 1.Acute kidney injury. The patient is significantly frail and protein calorie malnourished. He has a PEG tube. is currently considering hospice. The patient is going to be monitored off dialys is, but if condition worsens, may need to be on chronic dialysis. This can be monitored by Dr. Eliel velasco, patient's primary echo technician. If the patient does things stable, would need to be followed up outpatient with Dr. Yadav for decision on timing of dialysis and if dialysis is needed. Hopefully, patient can go off dialysis with acute kidney injury improving. If the patient does need to go on d ialysis, was considering whether to do that or consider hospice at that point, we will defer tho se decisions to the at that point. 2.Hypokalemia at this point, stable. Patient had dialysis today. 3.Hypophosphatemia. Potassium replete as well p.r.n. 4.Hypertension. Blood pressure is reasonable. Gentle ultrafiltration with dialysis to keep close t o his estimated dry weight. Now that the patient is off dialysis, is getting Lasix, so we will enid nue to monitor fluids with Lasix, balance diet, salt restriction. 5.Congestive heart failure, currently stable. Breathing is reasonably stable. The patient is very cachectic and malnourished. Overall getting fed through the PEG tube. 6.Toxic metabolic encephalopathy with uremia ongoing with some improvement. The decision currently is to keep him off dialysis and monitor. is considering hospice as well. The patient's conditi on discussed with Dr. Yadav and also with the rounding hospitalist, . /ERLIN Voice ID: [id number] Report ID: [id number]
[2021-10-29 04:36] LABS: Albumin 2.4 g/dL (3.4-5.0); Magnesium 2.6 mg/dL (1.8-2.4); Phosphorus 2.3 mg/dL (2.5-4.9); Potassium 3.9 mmol/L (3.5-5.1)
[2021-10-29] MEDS: TRAMADOL HCL 50 MG TAB PO PRN ×2 (05:40→16:23)
--- NOTE | 2021-10-29 06:15 | P.PN ---
Date of Service: 10/29/21 Subjective: Continues with some lethargy, coughing a lot yesterday Remains afebrile Does not seem to be making any improvements No new symptoms/worsening symptoms ROS: Difficult to obtain given patient's confusion, intermittent mental status Physical exam GEN: confused, arousable and says some words, cachectic HEENT: Normal conjunctiva, bilateral temporal wasting CV: Regular rate and rhythm, no edema Pulm: Non-labored respirations on room air, diminished at R base, right thoracostomy tube dressing in place, slight bilateral crackles ABD: Soft, nondistended, PEG in place Integumentary: L heel ulcer Neuro: confused, generalized weakness hernandez in place Problem List Moderatelarge right pleural effusion, mild left pleural effusion, s/p R thoracostomy tube placement and subsequent removal Left lobar pneumonia Acute worsening of CKD 4 (diabetic nephropathy) Acute metabolic/toxic encephalopathy secondary to OSCAR and infection UTI, history of recurrent UTI; yeast Generalized weakness PEG tube feeding Anemia of chronic disease large pleural effusion; Dr. Lara consulted, placed chest tube on 10/24 with ~1L out. Output improved. Discontinued 10/27 Patient's mentation is never fully recovered, will obtain CT chest for further evaluation of bilateral lungs, possible pneumonia, start Merrem, repeat cultures Renal function worsening, nephrology consulted, patient underwent dialysis. Initially it was felt the patient may need to start chronic dialysis, which the patient and were discussing and considering hospice Patient's renal function improved slightly, nephrology felt that initiation of chronic dialysis was not immediately required. Patient tolerated dialysis yesterday okay, slept sedated afterwards Discussed with general surgery, will remove temporary dialysis catheter (right femoral) today. Spoke with , no plan for dialysis, agrees with taking this catheter Given the significant large effusion, cannot rule out pneumonia, and UA was concerning for UTI. Patient was initially started empirically on cefepime and vancomycin. Pulmonology felt there is no evidence of sepsis and discontinued antibiotics. Urine grew budding yeast, patient remained afebrile without leukocytosis. Completed 3 days of IV Diflucan (). Patient has been having waxing waning mentation, at times does not appear to have decision-making capacity Concern for aspiration, nothing by mouth, feeds and medications via PEG tube CT chest ordered for further evaluation, right pleural effusion seems to be reaccumulating, opacity noted on left lung, highly suspicious of pneumonia. Restart antibiotics, obtain blood cultures s/p 1uPRBC for anemia, of chronic disease, reportedly had some hematuria per , which is resolved wound care for L heel patient chronically ill; poor prognosis Code: DNR Dispo: home to resume home health considering hospice, possibly in the future Time Spent Managing Pts Care (In Minutes): 45
[2021-10-29 06:50] LABS: LD, PLEURAL FLUID 73 U/L; TOTAL PROTEIN, PLEURAL FLUID <3.0 g/dL
[2021-10-29] MEDS: INSULIN -REGULAR HUMAN 50 UNIT/0.5 ML ML SQ SCH ×4 (07:30→20:58)
[2021-10-29] MEDS ORDERED: POTASSIUM PHOS IN 0.9 % NACL 15 MMOL/250 ML BAG IV ONE (08:00)
--- NOTE | 2021-10-29 08:37 | RAD REPORT ---
EXAM DESCRIPTION: CT - Thorax Wo Con - 10/29/2021 8:18 am CLINICAL HISTORY: sob COMPARISON: October 23, 2021 TECHNIQUE: Computed axial tomography of the chest was obtained. Contrast was not requested. All CT scans are performed using dose optimization technique as appropriate and may include automated exposure control or mA/KV adjustment according to patient size. FINDINGS: The evaluation of mediastinum, tiffany and vessels is limited secondary to lack of IV contras t administration. The right pleural effusion has decreased in size. It is moderate. Minimal left pleural effusion. Mild right lower lobe atelectasis. 6.6 centimeter left lower lobe opacity. Upper lobes are clear. Cardiomegaly. No pericardial effusion Marked chronic compression fracture T12 vertebral body. Mild to moderate chronic compression fracture L3 vertebral body IMPRESSION: Left lower lobe opacity probably pneumonia. This should be followed until it has cleared to help exclude a post obstructive process/underlying mass Right pleural effusion has decreased in size and is moderate
[2021-10-29] MEDS: SUCRALFATE 1GM/10ML UCUP FT SCH ×4 (08:40→20:57)
[2021-10-29] MEDS: CALCITROL 0.25 MCG CAP PO SCH (08:41)
[2021-10-29] MEDS: VITAMIN D 5,000 UNIT CAP PO SCH (08:41)
[2021-10-29] MEDS: ESCITALOPRAM 20 MG TAB FT SCH (08:41)
[2021-10-29] MEDS: GABAPENTIN 100 MG CAP FT SCH ×2 (08:41→20:57)
[2021-10-29] MEDS: FUROSEMIDE 40 MG/4 ML VIAL IV SCH ×2 (08:41→16:08)
[2021-10-29] MEDS: NEPRO 1,000 ML BOT FT SCH ×4 (08:45→20:58)
[2021-10-29] MEDS: SCOPOLAMINE HYDROBROMIDE PATCH TD SCH (08:45)
[2021-10-29] MEDS: Meropenem 1,000 MG in NA CHLORIDE 0.9% 100 ML IV SCH ×2 (13:27→20:57)
[2021-10-29] MEDS: DIPHENHYDRAMINE 50 MG/ML VIAL IV PRN (13:44)
[2021-10-29 14:54] LABS: Urine Appearance TURBID (Clear); Urine Bilirubin NEGATIVE (Negative); Urine Blood 3+ (Negative); Urine Color YELLOW (Yellow); Urine Glucose NEGATIVE (Negative); Urine Protein 3+ (Negative); Urine Urobilinogen 0.2 mg/dL (0.2-1.0); Urine pH 5.5 (5.0-7.0)
[2021-10-29 15:15] LABS: Urine Microscopic Reflex ORDER UMIC
[2021-10-29 15:22] LABS: Urine Amorphous Sediment 3+ /HPF (NONE SEEN); Urine Bacteria <20 /HPF (NONE SEEN); Urine RBC <5 /HPF (NONE SEEN); Urine Yeast MANY (NONE SEEN)
[2021-10-29 15:26] LABS: Urine Waxy Casts 0-5 /LPF (NONE SEEN)
[2021-10-29 15:27] LABS: Urine Yeast with Hyphae PRESENT
[2021-10-29] MEDS ORDERED: LIDOCAINE 1% 20 ML MDV ONE (17:00)
--- NOTE | 2021-10-29 17:01 | PN ---
Subjective: The patient is seen in room 206 at [facility]. The patient is more alert tod ay. He still looks pretty cachectic and overall frail and ill. He does not look in any pain current ly. Objective: Vital Signs: His blood pressure is stable at about 140/64. Last check pulse is about 70 and regular on my exam. O2 sats are 95%. He is on 2-3 L nasal cannula. Abdomen: Soft. Has a PEG tube in place. Also has a groin catheter for dialysis in his right groin. Extremities: Reveal no edema. He is cachectic. Lungs: Clear with some wheezing that improves with cough. Laboratory Data: Reviewed. WBC count 10.5, hemoglobin 9.4, hematocrit 29.3, platelet count 115. So dium 142, potassium 3.9, chloride 110, bicarb is 27, BUN is 54, creatinine 2.0, glucose 134. Assessment And Plan: The patient is cachectic, significantly frail. Has required dialysis for uremi a, somewhat stable currently, may be able to go off dialysis, but is considering hospice care. The patient will not be able to likely be cared for just by . She is going to need assistance at home. She has been trying, but the patient has been coming back to the hospital frequently. At thi s point, is considering hospice care. Plan is to take out the groin catheter and observe the pa tient off dialysis. His numbers have somewhat improved and may be able to go without dialysis and if condition worsens and the patient does end up needing dialysis support, and the patient may dis cuss this further and at this point, the part is that they may in that case lean towards hospice and not go for aggressive care. Blood pressure is stable. Lytes okay. No acute reason for dialysis tod ay. The patient's groin catheter will likely be removed prior to discharge. Discharge planning as p er care coordination and 's ability to take care of the patient and his current condition and then is considering hospice, which will impact how long the patient's disc harge planning moves forward. /ERLIN Voice ID: [id number] Report ID: [id number]
--- NOTE | 2021-10-29 17:13 | P.PN ---
Subjective Date of Service: 10/29/21 Chief Complaint: acute renal failure Subjective: Worsening Review of Systems is unable to be obtained Physical Examination - Vital Signs Temperature: 98.4 F Blood Pressure: 154/74 Pulse: 73 Respirations: 16 Pulse Ox (%): 95 - Physical Exam General: Confused (lethargic, reponsive to stimuli) Cardiovascular: Other (RIGHT femoral HD catheter removed and 2-0 suture placed, good hemostasis) Assessment And Plan - Current Problems (Diagnosis) (1) Acute renal failure Current Visit: No Status: Acute Plan: - continue medical management - will remain available if patient requires permanent hemodialysis access - Temporary hemodialysis catheter removed @ bedside under sterile conditions and a single 2-0 nylon suture was placed to ensure hemostasis Qualifiers: Acute renal failure type: with acute renal cortical necrosis Qualified Code(s): N17.1 - Acute kidney failure with acute cortical necrosis
--- NOTE | 2021-10-29 17:17 | P.PN ---
Subjective Date of Service: 10/25/21 Chief Complaint: acute renal failure Subjective: Improving Physical Examination - Vital Signs Temperature: 98.4 F Blood Pressure: 154/74 Pulse: 73 Respirations: 16 Pulse Ox (%): 95 - Physical Exam General: Alert, Confused Respiratory: Clear to auscultation bilaterally (chest tube functioning well,) Cardiovascular: Regular rate/rhythm Gastrointestinal: Soft and benign (PEG in place, ) Integumentary: Other (minimal oozing from Femoral HD catheter) Assessment And Plan - Current Problems (Diagnosis) (1) Acute renal failure Current Visit: No Status: Acute Plan: - continue medical management - will remain available if patient requires permanent hemodialysis access - continue chest tube management, improved pulmonary function, temporary HD access working well, oozes intermittently, but minimal blood loss Qualifiers: Acute renal failure type: with acute renal cortical necrosis Qualified Code(s): N17.1 - Acute kidney failure with acute cortical necrosis
--- NOTE | 2021-10-29 17:18 | P.PN ---
Subjective Date of Service: 10/26/21 Chief Complaint: acute renal failure Subjective: Improving Physical Examination - Vital Signs Temperature: 98.4 F Blood Pressure: 154/74 Pulse: 73 Respirations: 16 Pulse Ox (%): 95 - Physical Exam General: Alert HEENT: Mucous membr. moist/pink Respiratory: Normal air movement (Chest tube functioning well) Cardiovascular: Other (minimal oozing from Femoral HD catheter) Gastrointestinal: Soft and benign (PEG in place) Assessment And Plan - Current Problems (Diagnosis) (1) Acute renal failure Current Visit: No Status: Acute Plan: - continue medical management - will remain available if patient requires permanent hemodialysis access - continue chest tube management, improved pulmonary function, temporary HD access working well, oozes intermittently, but minimal blood loss Qualifiers: Acute renal failure type: with acute renal cortical necrosis Qualified Code(s): N17.1 - Acute kidney failure with acute cortical necrosis
--- NOTE | 2021-10-29 17:19 | P.PN ---
Subjective Date of Service: 10/27/21 Chief Complaint: acute renal failure Subjective: Improving Physical Examination - Vital Signs Temperature: 98.4 F Blood Pressure: 154/74 Pulse: 73 Respirations: 16 Pulse Ox (%): 95 - Physical Exam General: Alert, Confused HEENT: Mucous membr. moist/pink Respiratory: Normal air movement (Chest tube removed @ bedside, no issues) Cardiovascular: Other (minimal oozing from Femoral HD catheter) Gastrointestinal: Soft and benign Assessment And Plan - Current Problems (Diagnosis) (1) Acute renal failure Current Visit: No Status: Acute Plan: - continue medical management - will remain available if patient requires permanent hemodialysis access - improved pulmonary function, temporary HD access working well, oozes intermittently, but minimal blood loss Qualifiers: Acute renal failure type: with acute renal cortical necrosis Qualified Code(s): N17.1 - Acute kidney failure with acute cortical necrosis
--- NOTE | 2021-10-29 17:20 | P.PN ---
Subjective Date of Service: 10/28/21 Chief Complaint: acute renal failure Subjective: Improving Physical Examination - Vital Signs Temperature: 98.4 F Blood Pressure: 154/74 Pulse: 73 Respirations: 16 Pulse Ox (%): 95 - Physical Exam General: Confused (lethargic) HEENT: Mucous membr. moist/pink Respiratory: Normal air movement Cardiovascular: Other (minimal oozing from Femoral HD catheter) Gastrointestinal: Soft and benign Assessment And Plan - Current Problems (Diagnosis) (1) Acute renal failure Current Visit: No Status: Acute Plan: - continue medical management - will remain available if patient requires permanent hemodialysis access - improved pulmonary function, temporary HD access working well, oozes intermittently, but minimal blood loss - had discussion about hospice with @ bedside, she wants to pursue, will discuss with Dr. Carrera - she does not want dialysis any longer after last cycle Qualifiers: Acute renal failure type: with acute renal cortical necrosis Qualified Code(s): N17.1 - Acute kidney failure with acute cortical necrosis
[2021-10-29] MEDS: TRAZODONE 50 MG TABLET PO SCH (20:57)
[2021-10-29] MEDS: ATORVASTATIN 80 MG TAB FT SCH (20:57)
[2021-10-30 06:09] LABS: Hematocrit 27.8 % (39.6-49.0); Lymphocytes % 11.5 % (15.3-44.8); MPV 10.1 fL (7.6-11.3); RBC Red Blood Cell Count 3.79 M/uL (4.33-5.43)
--- NOTE | 2021-10-30 06:15 | P.PN ---
Date of Service: 10/30/21 Subjective: R femoral cath removed yesterday no significant changes, lethargic, arousable, mumbles with weak voice ROS: Difficult to obtain given patient's confusion, intermittent mental status Physical exam GEN: confused, arousable and says some words, cachectic HEENT: Bilateral temporal wasting CV: Regular rate and rhythm, no edema Pulm: Non-labored respirations on room air, diminished bilaterally, crackles bilaterally. Right thoracostomy tube dressing in place ABD: Soft, nondistended, PEG in place Integumentary: L heel ulcer Neuro: confused, generalized weakness hernandez in place Problem List Moderatelarge right pleural effusion, mild left pleural effusion, s/p R thoracostomy tube placement and subsequent removal Left lobar pneumonia Acute worsening of CKD 4 (diabetic nephropathy) Acute metabolic/toxic encephalopathy secondary to OCSAR and infection UTI, history of recurrent UTI; yeast Generalized weakness PEG tube feeding Anemia of chronic disease large pleural effusion; Dr. Lara consulted, placed chest tube on 10/24 with ~1L out. Output improved. Discontinued 10/27 Patient's mentation is never fully recovered, will obtain CT chest for further evaluation of bilateral lungs, possible pneumonia, started Merrem 10/29, repeat cultures blood culture - no growth, GNR on stain Renal function worsening, nephrology consulted, patient underwent dialysis. Initially it was felt the patient may need to start chronic dialysis, which the patient and were discussing and considering hospice Patient's renal function improved slightly, nephrology felt that initiation of chronic dialysis was not immediately required. dialysis cath removed yesterday Spoke with , no plan for dialysis going forward/assisted Given the significant large effusion, cannot rule out pneumonia, and UA was concerning for UTI. Patient was initially started empirically on cefepime and vancomycin. Pulmonology felt there is no evidence of sepsis and discontinued antibiotics. Urine grew budding yeast, patient remained afebrile without leukocytosis. Completed 3 days of IV Diflucan (). Patient has been having waxing waning mentation, at times does not appear to have decision-making capacity Concern for aspiration, nothing by mouth, feeds and medications via PEG tube CT chest ordered for further evaluation, right pleural effusion seems to be reaccumulating, opacity noted on left lung, highly suspicious of pneumonia. Restarted antibiotics - 10/29, f/u blood cultures s/p 1uPRBC for anemia, of chronic disease, reportedly had some hematuria per , which is resolved wound care for L heel patient chronically ill; poor prognosis Code: DNR Dispo: considering hospice, possibly in the future called multiple times today, left voicemail, unable to get a hold of her to further discuss Time Spent Managing Pts Care (In Minutes): 35
[2021-10-30 06:22] LABS: Magnesium 2.7 mg/dL (1.8-2.4); Phosphorus 3.1 mg/dL (2.5-4.9); Potassium 4.2 mmol/L (3.5-5.1)
[2021-10-30] MEDS: INSULIN -REGULAR HUMAN 50 UNIT/0.5 ML ML SQ SCH ×4 (07:30→21:00)
[2021-10-30] MEDS ORDERED: Meropenem 1000 MG/VIAL IV ONE (07:36)
[2021-10-30] MEDS ORDERED: NA CHLORIDE 0.9% 100 ML ONE (07:37)
[2021-10-30] MEDS: ESCITALOPRAM 20 MG TAB FT SCH (08:35)
[2021-10-30] MEDS: VITAMIN D 5,000 UNIT CAP PO SCH (08:35)
[2021-10-30] MEDS: FUROSEMIDE 40 MG/4 ML VIAL IV SCH ×2 (08:35→16:27)
[2021-10-30] MEDS: Meropenem 1,000 MG in NA CHLORIDE 0.9% 100 ML IV SCH ×2 (08:35→22:20)
[2021-10-30] MEDS: CALCITROL 0.25 MCG CAP PO SCH (08:36)
[2021-10-30] MEDS: GABAPENTIN 100 MG CAP FT SCH ×2 (08:36→22:20)
[2021-10-30] MEDS: SUCRALFATE 1GM/10ML UCUP FT SCH ×4 (08:59→22:20)
[2021-10-30] MEDS: NEPRO 1,000 ML BOT FT SCH ×4 (08:59→22:20)
[2021-10-30] MEDS: DIPHENHYDRAMINE 50 MG/ML VIAL IV PRN ×3 (11:14→22:20)
[2021-10-30] MEDS: EPOETIN ALFA 10,000 UNIT/ML VIAL SQ SCH (16:27)
--- NOTE | 2021-10-30 19:49 | P.PN ---
Date of Service: 10/30/21 Vital Signs Temp Pulse Resp BP Pulse Ox 98.4 F 75 18 159/74 H 97 10/30/21 16:00 10/30/21 18:39 10/30/21 16:00 10/30/21 18:39 10/30/21 16:00 Medications Acetaminophen (Acetaminophen 650mg/Rect Supp) 650 mg GA Q6HP PRN PRN Reason: TEMP > 100' F Albuterol Sulfate (Albuterol 2.5 Mg/3 Ml Neb [place]e) 2.5 mg NEB Q6HP PRN PRN Reason: SHORTNESS OF BREATH Last Admin: 10/28/21 18:06 Dose: 2.5 mg Documented by: Atorvastatin Calcium (Atorvastatin 80 Mg Tab) 80 mg FT BEDTIME [facility] Last Admin: 10/29/21 20:57 Dose: 80 mg Documented by: Calcitriol (Calcitrol 0.25 Mcg Cap) 0.5 mcg PO DAILY [facility] Last Admin: 10/30/21 08:36 Dose: 0.5 mcg Documented by: Cholecalciferol (Vitamin D 5,000 Unit Cap) 5,000 unit PO DAILY [facility] Last Admin: 10/30/21 08:35 Dose: 5,000 unit Documented by: Diphenhydramine HCl (Diphenhydramine 50 Mg/Ml Vial) 12.5 mg IV Q6H PRN PRN Reason: ITCHING Last Admin: 10/30/21 16:52 Dose: 12.5 mg Documented by: Enteral Nutritional Formula (Nepro 1,000 Ml Bot) 360 ml FT ACHS [facility] Last Admin: 10/30/21 16:14 Dose: 360 ml Documented by: Epoetin Cody (Epoetin Cody 10,000 Unit/Ml Vial) 10,000 unit SQ M,W,F CANDELARIO Last Admin: 10/30/21 16:27 Dose: 10,000 unit Documented by: Escitalopram Oxalate (Escitalopram 20 Mg Tab) 40 mg FT DAILY [facility] Last Admin: 10/30/21 08:35 Dose: 40 mg Documented by: Furosemide (Furosemide 40 Mg/4 Ml Vial) 40 mg IV BIDL [facility] Last Admin: 10/30/21 16:27 Dose: 40 mg Documented by: Gabapentin (Gabapentin 100 Mg Cap) 200 mg FT BID [facility] Last Admin: 10/30/21 08:36 Dose: 200 mg Documented by: Heparin Sodium (Porcine) (Heparin 5000 Unit/Ml 1 Ml Vial) 5,000 unit SQ Q8HR [facility] Last Admin: 10/23/21 01:00 Dose: Not Given Documented by: Heparin Sodium (Porcine) (Heparin 1,000 Unit/Ml Vial) 2,000 unit IV EVERY HD PRN PRN Reason: DIALYSIS Last Admin: 10/28/21 11:00 Dose: 2,000 unit Documented by: Albumin Human (Albumin 25%) 50 mls @ 100 mls/hr IV EVERY HD [facility] Meropenem 1,000 mg/ Sodium (Chloride) 100 mls @ 200 mls/hr IV Q12HR [facility] Last Admin: 10/30/21 08:35 Dose: 100 mls Documented by: Insulin Human Regular (Insulin -Regular Human 50 Unit/0.5 Ml Ml) 0 unit SQ [facility]; Protocol Last Admin: 10/30/21 16:30 Dose: Not Given Documented by: Mannitol (Mannitol 25% 12.5 Gm/50 Ml Vial) 12.5 gm IV EVERY HD PRN PRN Reason: Titrate to SBP (MUST DEFINE) Ondansetron HCl (Ondansetron 4 Mg/2 Ml Vial) 4 mg IV Q6HP PRN PRN Reason: NAUSEA / VOMITING Scopolamine HBr (Scopolamine Hydrobromide Patch) 1 pat TD Q3D@0900 [facility] Last Admin: 10/29/21 08:45 Dose: 1 pat Documented by: Sodium Chloride (Flush Normal Saline 10 Ml) 10 ml IV BID [facility] Last Admin: 10/30/21 08:36 Dose: 10 ml Documented by: Sucralfate (Sucralfate 1gm/10ml Ucup) 1 gm FT ACHS [facility] Last Admin: 10/30/21 16:14 Dose: 1 gm Documented by: Trazodone HCl (Trazodone 50 Mg Tablet) 50 mg PO BEDTIME [facility] Last Admin: 10/29/21 20:57 Dose: 50 mg Documented by: Microbiology Results 10/22/21 08:25 Blood - Blood Aerobic Blood Culture - Final No growth in 5 days. 10/22/21 08:25 Blood - Blood Anaerobic Blood Culture - Final No growth in 5 days. 10/22/21 08:40 Blood - Blood Aerobic Blood Culture - Final No growth in 5 days. 10/22/21 08:40 Blood - Blood Anaerobic Blood Culture - Final No growth in 5 days. 10/22/21 09:59 Catheterized Urine Amenia Count - Final >100,000 CFU/ML. 10/22/21 09:59 Catheterized Urine - Final Assessment/ Plan: Nephrology Worsening mental status No dyspnea No chest pain No acute events overnight Vitals, medications, blood work and imaging reviewed in the chart. General: In no apparent distress, Cooperative HEENT: Atraumatic Neck: Supple Respiratory: Diminished Cardiovascular: Regular rate/rhythm, Edema Gastrointestinal: Soft and benign, Non-distended Musculoskeletal: No clubbing, No contractures Integumentary: No rashes, No cyanosis Neurological: Normal speech Blood work reviewed in the chart. Imagings Data: EXAM DESCRIPTION: RAD - Chest Single View - 10/22/2021 9:10 am CLINICAL HISTORY: Cough;Congestion COMPARISON: Chest Single View dated 09/29/2021; Chest Pa And Lat (2 Views) dated 08/25/2021; Chest Single View dated 08/24/2021; Chest Single View dated 07/08/2021; Renal Biopsy\CT dated 09/08/2021 FINDINGS: Lines: None. Lungs: Decreased lung volumes on the right. Increased widespread airspace disease. Pleural: Bilateral pleural effusions. Cardiac: Cardiomegaly . Bones: No acute fractures. Sternotomy. Other: IMPRESSION: Worsening of widespread interstitial and airspace opacities that probably reflects edema though pneumonia difficult to entirely exclude radiographically. Bilateral pleural effusions. Conclusions/Impression: OSCAR vs Progressive CKD CKD IV with proteinuria HD initiated [id number]. OSCAR may have improved with HD; may be monitored off HD for improvement. -No NSAIDs -Not a good candidate for PD -Patient's considering dialysis vs hospice Hypokalemia -Encourage nutrition -Replete potassium prn HypoPO4 -Replete PO4 prn HTN with CKD/ CHF -Monitor BP -HD with UF Diastolic CHF, A/C Pleural Effusion -Low sodium diet -HD with UF -Continue Lasix DM II with CKD DM Nephropathy -RISS Moderate malnutrition -Continue Nepro TF Anemia in chronic illness/ CKD -Retacrit MWF CKD MBD -Continue Vitamin D Toxic Metabolic Encephalopathy Uremia -Acute HD as ordered Case reviewed with Dr. Carrera
[2021-10-30] MEDS: ATORVASTATIN 80 MG TAB FT SCH (22:20)
[2021-10-30] MEDS: TRAZODONE 50 MG TABLET PO SCH (22:20)
[2021-10-31 05:48] LABS: Absolute Lymphocytes (CBC) 0.8 K/uL (0.7-4.9); Hematocrit 29.4 % (39.6-49.0); Lymphocytes % 10.1 % (15.3-44.8); MPV 9.7 fL (7.6-11.3); RBC Red Blood Cell Count 3.99 M/uL (4.33-5.43)
[2021-10-31 06:14] LABS: Albumin 2.4 g/dL (3.4-5.0); Bilirubin Total 0.5 mg/dL (0.2-1.0); Magnesium 2.9 mg/dL (1.8-2.4); Phosphorus 2.7 mg/dL (2.5-4.9); Protein, Total 6.3 g/dL (6.4-8.2); Uric Acid 5.1 mg/dL (3.5-7.2)
[2021-10-31] MEDS: INSULIN -REGULAR HUMAN 50 UNIT/0.5 ML ML SQ SCH ×5 (07:30→21:00)
[2021-10-31] MEDS: SUCRALFATE 1GM/10ML UCUP FT SCH ×4 (07:43→21:41)
[2021-10-31] MEDS: Meropenem 1,000 MG in NA CHLORIDE 0.9% 100 ML IV SCH ×2 (07:43→21:38)
[2021-10-31] MEDS: ESCITALOPRAM 20 MG TAB FT SCH (07:43)
[2021-10-31] MEDS: CALCITROL 0.25 MCG CAP PO SCH (07:43)
[2021-10-31] MEDS: GABAPENTIN 100 MG CAP FT SCH ×2 (07:43→21:38)
[2021-10-31] MEDS: VITAMIN D 5,000 UNIT CAP PO SCH (07:44)
[2021-10-31] MEDS: NEPRO 1,000 ML BOT FT SCH ×4 (07:44→21:39)
[2021-10-31] MEDS: FUROSEMIDE 40 MG/4 ML VIAL IV SCH ×2 (07:45→16:36)
[2021-10-31] MEDS: DIPHENHYDRAMINE 50 MG/ML VIAL IV PRN ×3 (10:37→21:38)
[2021-10-31] MEDS ORDERED: SUCRALFATE 1GM/10ML UCUP FT SCH (13:00)
--- NOTE | 2021-10-31 14:16 | P.PN ---
Subjective Date of Service: 10/31/21 Chief Complaint: acute renal failure No changes from yesterday. Patient remains confused and lethargic No fever. 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 moist/pink, Sclerae nonicteric Neck: JVD not distended. Respiratory: Diminished (Bilateral), No crackles Cardiovascular: Regular rate/rhythm, Normal S1 S2, Edema (1+ bilateral lower extremity edema) Gastrointestinal: Soft and benign, Non-distended, No tenderness, PEG tube Musculoskeletal: No contractures, No tenderness Integumentary: Left heel decubitus ulcer Neurological: Confused, no focal motor deficits. Lymphatics: No axilla or inguinal lymphadenopathy Urogenital: Holcomb catheter Problem List Moderatelarge right pleural effusion, mild left pleural effusion, s/p R thoracostomy tube placement and subsequent removal Left lobar pneumonia Acute worsening of CKD 4 (diabetic nephropathy) Acute metabolic/toxic encephalopathy secondary to OSCAR and infection UTI, history of recurrent UTI; yeast Generalized weakness PEG tube feeding Anemia of chronic disease large pleural effusion; Dr. Lara consulted, placed chest tube on 10/24 with ~1L out. Output improved. Discontinued 10/27 Patient's mentation never fully recovered. blood culture - no growth, GNR on stain. Patient is on meropenem. Renal function worsening, nephrology consulted, patient underwent dialysis. Initially it was felt the patient may need to start chronic dialysis, which the patient and were discussing and considering hospice Patient's renal function improved slightly, nephrology felt that initiation of chronic dialysis was not immediately required. dialysis cath removed yesterday and dialysis discontinued Status post multiple antibiotics. Patient's urine culture is positive most of the time. This could be due to colonization. UA positive for yeast buds. Completed 3 days of IV Diflucan (). Patient has been having waxing waning mentation-confusion to unresponsiveness. Repeat CT chest:right pleural effusion seems to be reaccumulating, opacity noted on left lung, highly suspicious of pneumonia. Restarted antibiotics -meropenem. s/p 1uPRBC for anemia, of chronic disease, reportedly had some hematuria per , which is resolved wound care for Morenita carias patient chronically ill; poor prognosis. Patient has not responded to treatment and recommended hospice. Spouse is open to hospice. Social service consulted for arrangement for hospice evaluation. Code: DNR Time Spent Managing Pts Care (In Minutes): 42
--- NOTE | 2021-10-31 19:03 | P.PN ---
Subjective Date of Service: 10/30/21 Chief Complaint: acute renal failure Subjective: No new changes (Patient remains confused) Physical Examination - Vital Signs Temperature: 97.9 F Blood Pressure: 167/76 Pulse: 70 Respirations: 20 Pulse Ox (%): 91 - Physical Exam General: Demented, Confused Respiratory: Normal air movement Cardiovascular: Other (Suture in place in RIGHT Groin) Gastrointestinal: Soft and benign (PEG in place) Assessment And Plan - Current Problems (Diagnosis) (1) Acute renal failure Current Visit: No Status: Acute Plan: - continue medical management - will remain available if patient requires permanent hemodialysis access - improved pulmonary function, temporary HD access working well, oozes intermittently, but minimal blood loss - had discussion about hospice with , she wants to pursue, will discuss with Dr. Carrera - she does not want dialysis any longer after last cycle Qualifiers: Acute renal failure type: with acute renal cortical necrosis Qualified Code(s): N17.1 - Acute kidney failure with acute cortical necrosis
--- NOTE | 2021-10-31 19:04 | P.PN ---
Subjective Date of Service: 10/31/21 Chief Complaint: acute renal failure Subjective: No new changes Physical Examination - Vital Signs Temperature: 97.9 F Blood Pressure: 167/76 Pulse: 70 Respirations: 20 Pulse Ox (%): 91 - Physical Exam General: Demented, Confused Respiratory: Diminished Cardiovascular: Other (RIGHT groin suture remains in place) Gastrointestinal: Soft and benign Assessment And Plan - Current Problems (Diagnosis) (1) Acute renal failure Current Visit: No Status: Acute Plan: - continue medical management - will remain available if patient requires permanent hemodialysis access - improved pulmonary function, temporary HD access working well, oozes interm ittently, but minimal blood loss - had discussion about hospice with , she wants to pursue, will discuss with Dr. Carrera - she does not want dialysis any longer after last cycle Qualifiers: Acute renal failure type: with acute renal cortical necrosis Qualified Code(s): N17.1 - Acute kidney failure with acute cortical necrosis
[2021-10-31] MEDS: ALBUTEROL 2.5 MG/3 ML NEB SOL NEB PRN (21:20)
[2021-10-31] MEDS: HYDRALAZINE HCL 10 MG TABLET PO SCH (21:38)
[2021-10-31] MEDS: TRAZODONE 50 MG TABLET PO SCH (21:38)
[2021-10-31] MEDS: ATORVASTATIN 80 MG TAB FT SCH (21:41)
[2021-11-01] MEDS: NEPRO 1,000 ML BOT FT SCH ×4 (07:30→22:05)
[2021-11-01] MEDS ORDERED: ESCITALOPRAM 20 MG TAB FT SCH (09:00)
[2021-11-01] MEDS: TAMSULOSIN 0.4 MG SR CAP PO SCH (09:00)
[2021-11-01] MEDS: SUCRALFATE 1GM/10ML UCUP FT SCH ×4 (09:43→22:04)
[2021-11-01] MEDS: VITAMIN D 5,000 UNIT CAP PO SCH (09:43)
[2021-11-01] MEDS: SCOPOLAMINE HYDROBROMIDE PATCH TD SCH (09:45)
[2021-11-01] MEDS: FUROSEMIDE 40 MG/4 ML VIAL IV SCH ×2 (09:46→17:03)
[2021-11-01] MEDS: HYDRALAZINE HCL 10 MG TABLET PO SCH ×2 (09:47→22:04)
[2021-11-01] MEDS: DOXAZOSIN 2 MG TAB FT SCH (09:47)
[2021-11-01] MEDS: GABAPENTIN 100 MG CAP FT SCH ×2 (09:47→22:04)
[2021-11-01] MEDS: ESCITALOPRAM 20 MG TAB FT SCH (09:47)
[2021-11-01] MEDS: CALCITROL 0.25 MCG CAP PO SCH (09:47)
[2021-11-01] MEDS: INSULIN -REGULAR HUMAN 50 UNIT/0.5 ML ML SQ SCH ×4 (09:47→22:05)
[2021-11-01] MEDS: Meropenem 1,000 MG in NA CHLORIDE 0.9% 100 ML IV SCH ×2 (09:58→22:03)
[2021-11-01] MEDS: DIPHENHYDRAMINE 50 MG/ML VIAL IV PRN ×2 (12:44→18:25)
--- NOTE | 2021-11-01 15:03 | P.CNS ---
"Date of Consult: 11/01/21 Chief Complaint: acute renal failure History of Present Illness: The patient is a 66-year-old male with a past medical history significant of CKD, recurrent pleural effusions, protein caloric malnutrition status post PEG tube placement last year, CAD, chronic diastolic congestive heart failure, and anemia who presented to the ED secondary to shortness of breath. Per spouse who is at bedside the patient was also becoming lethargic. Chest x-ray demonstrated bilateral pleural effusions right greater than left. Labs significant for creatinine of 2.92 on admission and severely elevated BUN. Patient had a right thoracostomy tube placed on 10/24 and was subsequently removed on 10/27. Repeat chest x-ray on 10/29 showed left lower lobe opacity concerning for pneumonia as well as right pleural effusion. During hospital stay patient also had severely elevated creatinine, on 10/22 a nontunneled dialysis catheter was replaced. Patient had a few sessions of dialysis however it was subsequently removed on 10/31. IM team is having conversation with the at bedside about hospice. Blood cultures were obtained on 10/29 which grew Pseudomonas aeruginosa. Urine culture obtained on 10/27 showed mixed alla with budding yeast, which IM team treated with 3 days of fluconazole. Acute disease has been consulted to manage bacteremia. Patient was empirically placed on meropenem on 10/29. Per who is at bedside she feels the patient is really having a slight allergic reaction to meropenem with a small rash on his chest as well as some hand swelling. As such I recommend switching meropenem to ceftazidime and completing a full 7-day course. We will continue to monitor the patient closely. Allergies Latex, Natural Rubber Adverse Reaction (Verified 10/22/21 14:50) Hives/Rash spironolactone Adverse Reaction (Verified 09/29/21 23:27) Anaphylaxis nexen Adverse Reaction (Uncoded 02/08/21 23:48) hallucination Home Medications: Aspirin [Adult Aspirin Regimen] 81 mg PO DAILY 06/04/20 Atorvastatin Calcium [Lipitor] 80 mg FT BEDTIME 06/04/20 Amlodipine [Norvasc*] 10 mg FT DAILY 07/16/20 Clopidogrel Bisulfate [Plavix*] 75 mg FT DAILY 07/16/20 Escitalopram [Lexapro*] 40 mg FT DAILY 07/16/20 Gabapentin 300 mg FT BID 07/16/20 Ascorbic Acid [Vitamin C] 1,000 mg FT BID 12/16/20 Sucralfate [Carafate] 1 gm FT SEECOM 12/16/20 Trazodone HCl 150 mg FT BEDTIME 12/16/20 Nut.tx.impaired Renal Fxn,Soy [Nepro Carb Steady] 360 mg FT QID 06/10/21 Tamsulosin [Flomax*] 0.4 mg PO DAILY 06/10/21 Benzonatate 1 cap PO TID PRN 08/25/21 Ferrous Sulfate 1 tab PO BID 09/30/21 Furosemide [Lasix] 1 tab PO BID 09/30/21 Hydralazine [Apresoline*] 1 tab PO BID 09/30/21 Ondansetron HCl 1 tab PO Q8H PRN 09/30/21 Tramadol HCl [Ultram] 1 tab PO Q4H PRN 09/30/21 Codeine Phosphate/Guaifenesin [Virtussin AC 10-100 mg/5 ml Lq] 118 ml PO DAILY PRN 10/22/21 Docusate [Colace Cap] 100 mg PO DAILY PRN 10/22/21 Doxazosin [Cardura*] 2 mg FT DAILY 10/22/21 Ipratropium/Albuterol Sulfate [Iprat-Albut 0.5-3(2.5) mg/3 ml] 0.5 mg IH Q4H PRN 10/22/21 Pantoprazole Sodium [Protonix] 40 mg PO BID PRN 10/22/21 Polyethyl Gly 3350 [Glycolax*] 17 gm PO DAILY PRN 10/22/21 Promethazine Suppos [Phenergan] 25 mg RC Q6H PRN 10/22/21 Promethazine/Dextrometh Syr [Phenergan Dm Oral Syrup*] 5 mg PO Q6H PRN 10/22/21 - Past Medical/Surgical History Diabetic: Yes -: Diabetes mellitus type 2, insulin-dependent/ neuropathy -: CAD/anemia/BPH/diastolic congestive heart failure -: Hypertension/chronic UTI -: Hyperlipidemia|hypothyroid -: COPD -: Tobacco abuse -: Fracture t12 L3 -: PEG tube\\GERD -: CKD 3 -: seizures\\aspiration\\ PNA -: Stroke -: Chronic diastolic congestive -: Knee surgery -: I&D lower right buttock -: hiatal hernia repair -: I and D to the left foot -: Left Bipolar Hemiarthroplasty 04/06/19 -: Hip surgery -: CABG -: hand sx, PEG Psychosocial/ Personal History: Patient is single. He lives with his son. - Family History Father Medical History: Heart disease, Hypertension, Lung disease, GI disease, Diabetes, Cancer, Other (see notes) Notes: parkinson's disease Mother Medical History: Heart disease, Hypertension, Diabetes, Cancer Sister Medical History: Cancer - Social History Smoking Status: Unknown if ever smoked Alcohol use: No CD- Drugs: No Caffeine use: No Place of Residence: Home Review of Systems is unable to be obtained Physical Examination Temp Pulse Resp BP Pulse Ox 97.0 F 70 18 155/67 H 95 11/01/21 12:00 11/01/21 12:00 11/01/21 12:00 11/01/21 12:00 11/01/21 12:00 General: Cachectic, Confused HEENT: Atraumatic, Normocephalic Neck: Supple, 2+ carotid pulse no bruit Respiratory: Other (Bilateral crackles/rales, right lung sounds diminished) Cardiovascular: Normal pulses, Regular rate/rhythm Gastrointestinal: Other (PEG tube) Conclusions/Impression: Antibiotics: Ceftazidime: 11/01/current Meropenem: Assessment/plan Gram-negative bacteremia Blood cultures obtained on 10/29 grew Pseudomonas aeruginosa Patient started on meropenem on 10/29, will switch to ceftazidime due to possible allergic reaction. Recommend treating for full 7-day course OSCAR Patient had nontunneled dialysis catheter placed on 10/22 with a few sessions of dialysis. Catheter was removed on 10/31. Family wishes to not pursue dialysis at this time. Bilateral pleural effusion right greater than left with possible left lower lobe pneumonia Patient had right thoracostomy tube placed on 10/24, and removed on 10/27 Continue current antibiotics UTI Patient has history of chronic urinary tract infections, likely colonized. Urine culture obtained on 10/31 grew mixed alla as well as budding yeast, patient was treated with 3-day course of oral Diflucan. Would recommend treating for for 14-day course, however it is likely colonized and does not need necessarily need to be treated. Anemia Continue to monitor H&H Prognosis poor Plan of care discussed with Dr. Ortega Thank you for consultation"
[2021-11-01] MEDS: ALBUTEROL 2.5 MG/3 ML NEB SOL NEB PRN (15:52)
--- NOTE | 2021-11-01 16:25 | P.PN ---
Subjective Date of Service: 11/01/21 Chief Complaint: acute renal failure Patient is more altered and lethargic today compared to yesterday Blood cultures growing Pseudomonas. 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 HEENT: Mucous membr. moist/pink, Sclerae nonicteric Neck: JVD not distended. Respiratory: Diminished (Bilateral), No crackles Cardiovascular: Regular rate/rhythm, Normal S1 S2, Edema (1+ bilateral lower extremity edema) Gastrointestinal: Soft and benign, Non-distended, No tenderness, PEG tube Musculoskeletal: No contractures, No tenderness Integumentary: Left heel decubitus ulcer Neurological: Lethargic, no focal motor deficits. Urogenital: Holcomb catheter Problem List Moderatelarge right pleural effusion, mild left pleural effusion, s/p R thoracostomy tube placement and subsequent removal Left lobar pneumonia Acute worsening of CKD 4 (diabetic nephropathy) Acute metabolic/toxic encephalopathy secondary to OSCAR and infection UTI, history of recurrent UTI; yeast Generalized weakness PEG tube feeding Anemia of chronic disease large pleural effusion; Dr. Lara consulted, placed chest tube on 10/24 with ~1L out. Output improved. Discontinued 10/27 Patient's mentation never fully recovered. He remain lethargic blood culture -Pseudomonas Spouse is concerned of allergy to meropenem because of mild erythema at the left fluid. She states patient has also been itching. Seen by infectious disease. Meropenem switched to IV ceftazidime. Patient to complete 7 days of antibiotics for Pseudomonas. Today iss antibiotic day 4. Renal function got worse, nephrology consulted, patient underwent dialysis. Initially it was felt the patient may need to start chronic dialysis, which the patient and were discussing and considering hospice Patient's renal function improved slightly, nephrology felt that initiation of chronic dialysis was not immediately required. dialysis cath removed and dialysis discontinued. Serum creatinine is creeping up slowly. Status post multiple antibiotics. Patient's urine culture is positive most of the time. This is likely due to colonization. UA positive for yeast buds. Completed 3 days of IV Diflucan (). Yeast is likely a colonization. Patient has been having waxing waning mentation-confusion to unresponsiveness. Repeat CT chest:right pleural effusion seems to be reaccumulating, opacity noted on left lung, highly suspicious of pneumonia. s/p 1uPRBC for anemia, of chronic disease, reportedly had some hematuria per , which is resolved wound care for Morenita carias patient chronically ill; poor prognosis. Patient has not responded to treatment and recommended hospice. Spouse is open to hospice. I am informed [facility] hospice is supposed to contact spouse today and discussed services. Code: DNR
[2021-11-01] MEDS: EPOETIN ALFA 10,000 UNIT/ML VIAL SQ SCH (17:00)
--- NOTE | 2021-11-01 17:41 | P.PN ---
Subjective Date of Service: 11/01/21 Chief Complaint: acute renal failure Subjective: Improving (awake, conversive, confused) Physical Examination - Vital Signs Temperature: 97.0 F Blood Pressure: 169/85 Pulse: 63 Respirations: 18 Pulse Ox (%): 95 - Physical Exam General: Alert, In no apparent distress, Confused Respiratory: Clear to auscultation bilaterally, Normal air movement (wound from chest tube site healing well, no drainage) Cardiovascular: Other (suture in place in right groin) Assessment And Plan - Current Problems (Diagnosis) (1) Acute renal failure Current Visit: No Status: Acute Plan: - continue medical management - will remain available if patient requires permanent hemodialysis access - improved pulmonary function, chest tube site healing well, dry - had discussion about hospice with , she wants to pursue, will discuss with Dr. Carrera - she does not want dialysis any longer after last cycle Qualifiers: Acute renal failure type: with acute renal cortical necrosis Qualified Code(s): N17.1 - Acute kidney failure with acute cortical necrosis
[2021-11-01] MEDS: TRAZODONE 50 MG TABLET PO SCH (22:04)
[2021-11-01] MEDS: ATORVASTATIN 80 MG TAB FT SCH (22:05)
--- NOTE | 2021-11-01 22:30 | P.PN ---
Date of Service: 10/31/21 Vital Signs Temp Pulse Resp BP Pulse Ox 97.6 F 65 18 152/68 H 97 11/01/21 20:00 11/01/21 20:00 11/01/21 20:00 11/01/21 20:00 11/01/21 20:00 Medications Acetaminophen (Acetaminophen 650mg/Rect Supp) 650 mg IN Q6HP PRN PRN Reason: TEMP > 100' F Albuterol Sulfate (Albuterol 2.5 Mg/3 Ml Neb [place]) 2.5 mg NEB Q6HP PRN PRN Reason: SHORTNESS OF BREATH Last Admin: 11/01/21 15:52 Dose: 2.5 mg Documented by: Atorvastatin Calcium (Atorvastatin 80 Mg Tab) 80 mg FT BEDTIME [facility] Last Admin: 11/01/21 22:05 Dose: 80 mg Documented by: Calcitriol (Calcitrol 0.25 Mcg Cap) 0.5 mcg PO DAILY [facility] Last Admin: 11/01/21 09:47 Dose: 0.5 mcg Documented by: Cholecalciferol (Vitamin D 5,000 Unit Cap) 5,000 unit PO DAILY [facility] Last Admin: 11/01/21 09:43 Dose: 5,000 unit Documented by: Diphenhydramine HCl (Diphenhydramine 50 Mg/Ml Vial) 12.5 mg IV Q6H PRN PRN Reason: ITCHING Last Admin: 11/01/21 18:25 Dose: 12.5 mg Documented by: Doxazosin Mesylate (Doxazosin 2 Mg Tab) 2 mg FT DAILY [facility] Last Admin: 11/01/21 09:47 Dose: 2 mg Documented by: Enteral Nutritional Formula (Nepro 1,000 Ml Bot) 360 ml FT ACHS [facility] Last Admin: 11/01/21 22:05 Dose: 360 ml Documented by: Epoetin Cody (Epoetin Cody 10,000 Unit/Ml Vial) 10,000 unit SQ M,W,F [facility] Last Admin: 11/01/21 17:00 Dose: 10,000 unit Documented by: Escitalopram Oxalate (Escitalopram 20 Mg Tab) 40 mg FT DAILY [facility] Last Admin: 11/01/21 09:47 Dose: 40 mg Documented by: Furosemide (Furosemide 40 Mg/4 Ml Vial) 40 mg IV BIDL [facility] Last Admin: 11/01/21 17:03 Dose: 40 mg Documented by: Gabapentin (Gabapentin 100 Mg Cap) 200 mg FT BID [facility] Last Admin: 11/01/21 22:04 Dose: 200 mg Documented by: Heparin Sodium (Porcine) (Heparin 5000 Unit/Ml 1 Ml Vial) 5,000 unit SQ Q8HR [facility] Last Admin: 10/23/21 01:00 Dose: Not Given Documented by: Heparin Sodium (Porcine) (Heparin 1,000 Unit/Ml Vial) 2,000 unit IV EVERY HD PRN PRN Reason: DIALYSIS Last Admin: 10/28/21 11:00 Dose: 2,000 unit Documented by: Hydralazine HCl (Hydralazine Hcl 10 Mg Tablet) 10 mg PO BID [facility] Last Admin: 11/01/21 22:04 Dose: 10 mg Documented by: Albumin Human (Albumin 25%) 50 mls @ 100 mls/hr IV EVERY HD [facility] Meropenem 1,000 mg/ Sodium (Chloride) 100 mls @ 200 mls/hr IV Q12HR [facility] Last Admin: 11/01/21 22:03 Dose: 100 mls Documented by: Insulin Human Regular (Insulin -Regular Human 50 Unit/0.5 Ml Ml) 0 unit SQ [facility]; Protocol Last Admin: 11/01/21 22:05 Dose: 3 unit Documented by: Mannitol (Mannitol 25% 12.5 Gm/50 Ml Vial) 12.5 gm IV EVERY HD PRN PRN Reason: Titrate to SBP (MUST DEFINE) Ondansetron HCl (Ondansetron 4 Mg/2 Ml Vial) 4 mg IV Q6HP PRN PRN Reason: NAUSEA / VOMITING Scopolamine HBr (Scopolamine Hydrobromide Patch) 1 pat TD Q3D@0900 [facility] Last Admin: 11/01/21 09:45 Dose: 1 pat Documented by: Sodium Chloride (Flush Normal Saline 10 Ml) 10 ml IV BID [facility] Last Admin: 11/01/21 22:06 Dose: 10 ml Documented by: Sucralfate (Sucralfate 1gm/10ml Ucup) 1 gm FT [facility] Last Admin: 11/01/21 22:04 Dose: 1 gm Documented by: Tamsulosin HCl (Tamsulosin 0.4 Mg Sr Cap) 0.4 mg PO DAILY [facility] Last Admin: 11/01/21 09:00 Dose: 0.4 mg Documented by: Trazodone HCl (Trazodone 50 Mg Tablet) 50 mg PO BEDTIME [facility] Last Admin: 11/01/21 22:04 Dose: 50 mg Documented by: Microbiology Results 10/22/21 08:25 Blood - Blood Aerobic Blood Culture - Final No growth in 5 days. 10/22/21 08:25 Blood - Blood Anaerobic Blood Culture - Final No growth in 5 days. 10/22/21 08:40 Blood - Blood Aerobic Blood Culture - Final No growth in 5 days. 10/22/21 08:40 Blood - Blood Anaerobic Blood Culture - Final No growth in 5 days. 10/22/21 09:59 Catheterized Urine [place] Count - Final >100,000 CFU/ML. 10/22/21 09:59 Catheterized Urine - Final Assessment/ Plan: Nephrology Waxing and waning mental status No dyspnea No chest pain Weakness and fatigue No acute events overnight Vitals, medications, blood work and imaging reviewed in the chart. General: In no apparent distress, Cooperative HEENT: Atraumatic Neck: Supple Respiratory: Diminished Cardiovascular: Regular rate/rhythm, Edema Gastrointestinal: Soft and benign, Non-distended Musculoskeletal: No clubbing, No contractures Integumentary: No rashes, No cyanosis Neurological: Normal speech Blood work reviewed in the chart. Imagings Data: EXAM DESCRIPTION: RAD - Chest Single View - 10/22/2021 9:10 am CLINICAL HISTORY: Cough;Congestion COMPARISON: Chest Single View dated 09/29/2021; Chest Pa And Lat (2 Views) dated 08/25/2021; Chest Single View dated 08/24/2021; Chest Single View dated 07/08/2021; Renal Biopsy\CT dated 09/08/2021 FINDINGS: Lines: None. Lungs: Decreased lung volumes on the right. Increased widespread airspace disease. Pleural: Bilateral pleural effusions. Cardiac: Cardiomegaly . Bones: No acute fractures. Sternotomy. Other: IMPRESSION: Worsening of widespread interstitial and airspace opacities that probably reflects edema though pneumonia difficult to entirely exclude radiographically. Bilateral pleural effusions. Conclusions/Impression: OSCAR vs Progressive CKD CKD IV with proteinuria HD initiated [id number]. OSCAR may have improved with HD; may be monitored off HD for improvement. -No NSAIDs -Not a good candidate for PD -Patient's considering dialysis vs hospice Hypokalemia -Encourage nutrition -Replete potassium prn HypoPO4 -Replete PO4 prn HTN with CKD/ CHF -Monitor BP -HD with UF Diastolic CHF, A/C Pleural Effusion -Low sodium diet -HD with UF -Continue Lasix DM II with CKD DM Nephropathy -RISS Moderate malnutrition -Continue Nepro TF Anemia in chronic illness/ CKD -Retacrit MWF CKD MBD -Continue Vitamin D Toxic Metabolic Encephalopathy Uremia -Acute HD as ordered
--- NOTE | 2021-11-01 22:33 | P.PN ---
Date of Service: 10/31/21 Vital Signs Temp Pulse Resp BP Pulse Ox 97.6 F 65 18 152/68 H 97 11/01/21 20:00 11/01/21 20:00 11/01/21 20:00 11/01/21 20:00 11/01/21 20:00 Medications Acetaminophen (Acetaminophen 650mg/Rect Supp) 650 mg [place] Q6HP PRN PRN Reason: TEMP > 100' F Albuterol Sulfate (Albuterol 2.5 Mg/3 Ml Neb [place]) 2.5 mg NEB Q6HP PRN PRN Reason: SHORTNESS OF BREATH Last Admin: 11/01/21 15:52 Dose: 2.5 mg Documented by: Atorvastatin Calcium (Atorvastatin 80 Mg Tab) 80 mg FT BEDTIME [facility] Last Admin: 11/01/21 22:05 Dose: 80 mg Documented by: Calcitriol (Calcitrol 0.25 Mcg Cap) 0.5 mcg PO DAILY [facility] Last Admin: 11/01/21 09:47 Dose: 0.5 mcg Documented by: Cholecalciferol (Vitamin D 5,000 Unit Cap) 5,000 unit PO DAILY [facility] Last Admin: 11/01/21 09:43 Dose: 5,000 unit Documented by: Diphenhydramine HCl (Diphenhydramine 50 Mg/Ml Vial) 12.5 mg IV Q6H PRN PRN Reason: ITCHING Last Admin: 11/01/21 18:25 Dose: 12.5 mg Documented by: Doxazosin Mesylate (Doxazosin 2 Mg Tab) 2 mg FT DAILY [facility] Last Admin: 11/01/21 09:47 Dose: 2 mg Documented by: Enteral Nutritional Formula (Nepro 1,000 Ml Bot) 360 ml FT ACHS [facility] Last Admin: 11/01/21 22:05 Dose: 360 ml Documented by: Epoetin Cody (Epoetin [place] 10,000 Unit/Ml Vial) 10,000 unit SQ M,W,F [facility] Last Admin: 11/01/21 17:00 Dose: 10,000 unit Documented by: Escitalopram Oxalate (Escitalopram 20 Mg Tab) 40 mg FT DAILY [facility] Last Admin: 11/01/21 09:47 Dose: 40 mg Documented by: Furosemide (Furosemide 40 Mg/4 Ml Vial) 40 mg IV BIDL [facility] Last Admin: 11/01/21 17:03 Dose: 40 mg Documented by: Gabapentin (Gabapentin 100 Mg Cap) 200 mg FT BID [facility] Last Admin: 11/01/21 22:04 Dose: 200 mg Documented by: Heparin Sodium (Porcine) (Heparin 5000 Unit/Ml 1 Ml Vial) 5,000 unit SQ Q8HR [facility] Last Admin: 10/23/21 01:00 Dose: Not Given Documented by: Heparin Sodium (Porcine) (Heparin 1,000 Unit/Ml Vial) 2,000 unit IV EVERY HD PRN PRN Reason: DIALYSIS Last Admin: 10/28/21 11:00 Dose: 2,000 unit Documented by: Hydralazine HCl (Hydralazine Hcl 10 Mg Tablet) 10 mg PO BID [facility] Last Admin: 11/01/21 22:04 Dose: 10 mg Documented by: Albumin Human (Albumin 25%) 50 mls @ 100 mls/hr IV EVERY HD [facility] Meropenem 1,000 mg/ Sodium (Chloride) 100 mls @ 200 mls/hr IV Q12HR [facility] Last Admin: 11/01/21 22:03 Dose: 100 mls Documented by: Insulin Human Regular (Insulin -Regular Human 50 Unit/0.5 Ml Ml) 0 unit SQ [facility]; Protocol Last Admin: 11/01/21 22:05 Dose: 3 unit Documented by: Mannitol (Mannitol 25% 12.5 Gm/50 Ml Vial) 12.5 gm IV EVERY HD PRN PRN Reason: Titrate to SBP (MUST DEFINE) Ondansetron HCl (Ondansetron 4 Mg/2 Ml Vial) 4 mg IV Q6HP PRN PRN Reason: NAUSEA / VOMITING Scopolamine HBr (Scopolamine Hydrobromide Patch) 1 pat TD Q3D@0900 [facility] Last Admin: 11/01/21 09:45 Dose: 1 pat Documented by: Sodium Chloride (Flush Normal Saline 10 Ml) 10 ml IV BID [facility] Last Admin: 11/01/21 22:06 Dose: 10 ml Documented by: Sucralfate (Sucralfate 1gm/10ml Ucup) 1 gm FT [facility] Last Admin: 11/01/21 22:04 Dose: 1 gm Documented by: Tamsulosin HCl (Tamsulosin 0.4 Mg Sr Cap) 0.4 mg PO DAILY [facility] Last Admin: 11/01/21 09:00 Dose: 0.4 mg Documented by: Trazodone HCl (Trazodone 50 Mg Tablet) 50 mg PO BEDTIME [facility] Last Admin: 11/01/21 22:04 Dose: 50 mg Documented by: Microbiology Results 10/22/21 08:25 Blood - Blood Aerobic Blood Culture - Final No growth in 5 days. 10/22/21 08:25 Blood - Blood Anaerobic Blood Culture - Final No growth in 5 days. 10/22/21 08:40 Blood - Blood Aerobic Blood Culture - Final No growth in 5 days. 10/22/21 08:40 Blood - Blood Anaerobic Blood Culture - Final No growth in 5 days. 10/22/21 09:59 Catheterized Urine [place] Count - Final >100,000 CFU/ML. 10/22/21 09:59 Catheterized Urine - Final Assessment/ Plan: Nephrology Waxing and waning mental status No dyspnea No chest pain Weakness and fatigue No acute events overnight Vitals, medications, blood work and imaging reviewed in the chart. General: In no apparent distress, Cooperative HEENT: Atraumatic Neck: Supple Respiratory: Diminished Cardiovascular: Regular rate/rhythm, Edema Gastrointestinal: Soft and benign, Non-distended Musculoskeletal: No clubbing, No contractures Integumentary: No rashes, No cyanosis Neurological: Normal speech Blood work reviewed in the chart. Imagings Data: EXAM DESCRIPTION: RAD - Chest Single View - 10/22/2021 9:10 am CLINICAL HISTORY: Cough;Congestion COMPARISON: Chest Single View dated 09/29/2021; Chest Pa And Lat (2 Views) dated 08/25/2021; Chest Single View dated 08/24/2021; Chest Single View dated 07/08/2021; Renal Biopsy\CT dated 09/08/2021 FINDINGS: Lines: None. Lungs: Decreased lung volumes on the right. Increased widespread airspace disease. Pleural: Bilateral pleural effusions. Cardiac: Cardiomegaly . Bones: No acute fractures. Sternotomy. Other: IMPRESSION: Worsening of widespread interstitial and airspace opacities that probably reflects edema though pneumonia difficult to entirely exclude radiographically. Bilateral pleural effusions. Conclusions/Impression: OSCAR vs Progressive CKD CKD IV with proteinuria HD initiated [id number]. OSCAR may have improved with HD; may be monitored off HD for improvement. -No NSAIDs -Not a good candidate for PD -Patient's considering dialysis vs hospice Hypokalemia -Encourage nutrition -Replete potassium prn HypoPO4 -Replete PO4 prn HTN with CKD/ CHF -Monitor BP -HD with UF Diastolic CHF, A/C Pleural Effusion -Low sodium diet -HD with UF -Continue Lasix DM II with CKD DM Nephropathy -RISS Moderate malnutrition -Continue Nepro TF Anemia in chronic illness/ CKD -Retacrit MWF CKD MBD -Continue Vitamin D Toxic Metabolic Encephalopathy Uremia -Acute HD as ordered
[2021-11-02] MEDS: DIPHENHYDRAMINE 50 MG/ML VIAL IV PRN (00:47)
[2021-11-02 06:14] LABS: Absolute Lymphocytes (CBC) 0.8 K/uL (0.7-4.9); Lymphocytes % 10.4 % (15.3-44.8); MPV 9.5 fL (7.6-11.3); RBC Red Blood Cell Count 4.27 M/uL (4.33-5.43)
[2021-11-02 06:32] LABS: Albumin 2.3 g/dL (3.4-5.0); Bilirubin Total 0.4 mg/dL (0.2-1.0); Potassium 3.9 mmol/L (3.5-5.1); Protein, Total 6.1 g/dL (6.4-8.2)
[2021-11-02] MEDS: INSULIN -REGULAR HUMAN 50 UNIT/0.5 ML ML SQ SCH ×4 (07:30→22:23)
[2021-11-02] MEDS: SUCRALFATE 1GM/10ML UCUP FT SCH ×5 (07:30→22:19)
[2021-11-02] MEDS: NEPRO 1,000 ML BOT FT SCH ×6 (07:30→22:20)
[2021-11-02] MEDS ORDERED: KCL 20 MEQ/100 mL IVPB 20 MEQ/100 ML BAG IV SCH (08:00)
[2021-11-02] MEDS ORDERED: NA CHLORIDE 0.9% 100 ML ONE (08:24)
[2021-11-02] MEDS: CALCITROL 0.25 MCG CAP PO SCH (09:45)
[2021-11-02] MEDS: GABAPENTIN 100 MG CAP FT SCH ×3 (09:45→22:19)
[2021-11-02] MEDS: ESCITALOPRAM 20 MG TAB FT SCH (09:45)
[2021-11-02] MEDS: TAMSULOSIN 0.4 MG SR CAP PO SCH (09:45)
[2021-11-02] MEDS: VITAMIN D 5,000 UNIT CAP PO SCH (09:45)
[2021-11-02] MEDS: DOXAZOSIN 2 MG TAB FT SCH (10:20)
[2021-11-02] MEDS: HYDRALAZINE HCL 10 MG TABLET PO SCH ×3 (10:21→22:21)
[2021-11-02] MEDS: FUROSEMIDE 40 MG/4 ML VIAL IV SCH ×2 (10:21→17:04)
[2021-11-02] MEDS ORDERED: Meropenem 1000 MG/VIAL IV ONE (10:31)
[2021-11-02] MEDS: Meropenem 1,000 MG in NA CHLORIDE 0.9% 100 ML IV SCH (10:32)
--- NOTE | 2021-11-02 11:49 | P.PN ---
Subjective Date of Service: 11/02/21 Chief Complaint: acute renal failure Patient seen and examined at bedside, creatinine 2.98. Review of Systems 10-point ROS is otherwise unremarkable Physical Examination - Vital Signs Temperature: 97.8 F Blood Pressure: 148/80 Pulse: 60 Respirations: 18 Pulse Ox (%): 95 - Studies Laboratory Last Values WBC 6.7 K/uL (4.3-10.9) 10/22/21 08:40 RBC 3.27 M/uL (4.33-5.43) L 10/22/21 08:40 Hgb 7.4 g/dL (13.6-17.9) L 10/22/21 08:40 Hct 24.1 % (39.6-49.0) L 10/22/21 08:40 MCV 73.5 fL (80-100) L 10/22/21 08:40 MCH 22.6 pg (27.0-35.0) L 10/22/21 08:40 MCHC 30.8 g/dL (32.0-36.0) L 10/22/21 08:40 RDW 18.4 % (12.1-15.2) H 10/22/21 08:40 Plt Count 114 K/uL (152-406) L 10/22/21 08:40 MPV 10.7 fL (7.6-11.3) 10/22/21 08:40 Neutrophils % 73.5 % (41.7-73.7) 10/22/21 08:40 Lymphocytes % 9.8 % (15.3-44.8) L 10/22/21 08:40 Monocytes % 10.7 % (3.3-12.3) 10/22/21 08:40 Eosinophils % 5.1 % (0-4.4) H 10/22/21 08:40 Basophils % 0.9 % (0-1.3) 10/22/21 08:40 Absolute Neutrophils 4.9 K/uL (1.8-8.0) 10/22/21 08:40 Absolute Lymphocytes 0.7 K/uL (0.7-4.9) 10/22/21 08:40 Absolute Monocytes 0.7 K/uL (0.1-1.3) 10/22/21 08:40 Absolute Eosinophils 0.3 K/uL (0-0.5) 10/22/21 08:40 Absolute Basophils 0.1 K/uL (0-0.5) 10/22/21 08:40 PT 13.0 SECONDS (9.5-12.5) H 10/22/21 08:40 INR 1.18 10/22/21 08:40 Sodium 145 mmol/L (136-145) 10/22/21 08:40 Potassium 3.8 mmol/L (3.5-5.1) 10/22/21 08:40 Chloride 112 mmol/L (98-107) H 10/22/21 08:40 Carbon Dioxide 23 mmol/L (21-32) 10/22/21 08:40 BUN 108 mg/dL (7-18) H 10/22/21 08:40 Creatinine 2.92 mg/dL (0.55-1.3) H 10/22/21 08:40 Estimated GFR 22 mL/min (=/>90) L 10/22/21 08:40 Glucose 68 mg/dL (74-106) L 10/22/21 08:40 POC Glucose 82 mg/dL (65-120) 10/22/21 11:05 Lactic Acid 0.6 mmol/L (0.4-2.0) 10/22/21 08:40 Calcium 9.3 mg/dL (8.5-10.1) 10/22/21 08:40 Magnesium 3.0 mg/dL (1.8-2.4) H 10/22/21 08:40 Total Bilirubin 0.5 mg/dL (0.2-1.0) 10/22/21 08:40 Direct Bilirubin 0.2 mg/dL (0-0.2) 10/22/21 08:40 AST 15 U/L (15-37) 10/22/21 08:40 ALT 23 U/L (12-78) 10/22/21 08:40 Alkaline Phosphatase 72 U/L (45-117) 10/22/21 08:40 Troponin I High Sens 58.7 pg/mL (<58.9) 10/22/21 08:40 NT-Pro-B Natriuret Pep 72799 pg/mL (<125) H 10/22/21 08:40 Serum Total Protein 6.2 g/dL (6.4-8.2) L 10/22/21 08:40 Albumin 2.8 g/dL (3.4-5.0) L 10/22/21 08:40 Globulin 3.4 g/dL (2.3-3.5) 10/22/21 08:40 Albumin/Globulin Ratio 0.8 (1.1-1.8) L 10/22/21 08:40 Procalcitonin 0.19 ng/mL (<0.050) H 10/22/21 08:40 Urine pH 5.5 (5.0-7.0) 10/22/21 09:53 Ur Specific [place] 1.025 (1.005-1.030) 10/22/21 09:53 Glucose (UA)(Auto) Negative (Negative) 10/22/21 09:53 Urine Ketones Negative (Negative) 10/22/21 09:53 Urine Blood 3+ (Negative) H 10/22/21 09:53 Urine Nitrite Negative (Negative) 10/22/21 09:53 Ur Leukocyte Esterase 1+ (Negative) H 10/22/21 09:53 Urine Total Protein 3+ (Negative) H 10/22/21 09:53 Influenza Type A RNA Negative (NEGATIVE) 10/22/21 08:28 Influenza Type B RNA Negative (NEGATIVE) 10/22/21 08:28 SARS-CoV-2 RNA (RT-PCR) Negative (NEGATIVE) 10/22/21 08:28 ABO/Rh A POSITIVE 10/22/21 08:40 Solid Phase Ab Screen Negative 10/22/21 08:40 Crossmatch See Detail 10/22/21 08:40 Assessment And Plan - Plan Physical Exam: General: Cachectic, Confused HEENT: Atraumatic, Normocephalic Neck: Supple, 2+ carotid pulse no bruit Respiratory: Other (Bilateral crackles/rales, right lung sounds diminished) Cardiovascular: Normal pulses, Regular rate/rhythm Gastrointestinal: Other (PEG tube) Conclusions/Impression: Antibiotics: Ceftazidime: 11/02/-current Meropenem: Assessment/plan Gram-negative bacteremia Blood cultures obtained on 10/29 grew Pseudomonas aeruginosa Patient started on meropenem on 10/29, will switch to ceftazidime due to possible allergic reaction. Recommend treating for full 7-day course OSCAR Patient had nontunneled dialysis catheter placed on 10/22 with a few sessions of dialysis. Catheter was removed on 10/31. Family wishes to not pursue dialysis at this time. Bilateral pleural effusion right greater than left with possible left lower lobe pneumonia Patient had right thoracostomy tube placed on 10/24, and removed on 10/27 Continue current antibiotics UTI Patient has history of chronic urinary tract infections, likely colonized. Urine culture obtained on 10/31 grew mixed alla as well as budding yeast, patient was treated with 3-day course of oral Diflucan. Would recommend treating for for 14-day course, however it is likely colonized and does not need necessarily need to be treated. Anemia Continue to monitor H&H Prognosis poor Plan of care discussed with Dr. Ortega Thank you for consultation
--- NOTE | 2021-11-02 16:29 | P.PN ---
Subjective Date of Service: 11/02/21 Chief Complaint: acute renal failure Patient is more awake and interactive today. Patient with regular soft bowel movements Physical Examination - Vital Signs Temperature: 97.9 F Blood Pressure: 139/64 Pulse: 60 Respirations: 16 Pulse Ox (%): 97 Assessment And Plan - Current Problems (Diagnosis) (1) Pleural effusion Current Visit: No Status: Acute (2) Acute worsening of stage 4 chronic kidney disease Current Visit: Yes Status: Acute (3) Metabolic encephalopathy Current Visit: Yes Status: Acute (4) Diabetes Current Visit: No Status: Acute Qualifiers: Diabetes mellitus type: type 2 Diabetes mellitus usp insulin use: with usp use Diabetes mellitus complication status: without complication Qualified Code(s): E11.9 - Type 2 diabetes mellitus without complications; Z79.4 - correction (current) use of insulin (5) Pneumonia Current Visit: No Status: Acute Qualifiers: Pneumonia type: due to unspecified organism Laterality: bilateral (6) Weakness generalized Current Visit: No Status: Acute (7) Anemia Onset Date: 11/05/16 Current Visit: No Status: Chronic - Plan Physical Exam General: Cachectic, awake, confused but interactive today. HEENT: Mucous membr. moist/pink, Sclerae nonicteric Neck: JVD not distended. Respiratory: Diminished (Bilateral), No crackles Cardiovascular: Regular rate/rhythm, Normal S1 S2, Edema (1+ bilateral lower extremity edema) Gastrointestinal: Soft and benign, Non-distended, No tenderness, PEG tube Musculoskeletal: No contractures, No tenderness Integumentary: Left heel decubitus ulcer Neurological: Lethargic, no focal motor deficits. Urogenital: Holcomb catheter Problem List Moderatelarge right pleural effusion, mild left pleural effusion, s/p R thorac ostomy tube placement and subsequent removal Left lobar pneumonia Acute worsening of CKD 4 (diabetic nephropathy) Acute metabolic/toxic encephalopathy secondary to OSCAR and infection UTI, history of recurrent UTI; yeast Generalized weakness PEG tube feeding Anemia of chronic disease large pleural effusion; Dr. aLra consulted, placed chest tube on 10/24 with ~1L out. Output improved. Discontinued 10/27 Patient's mentation never fully recovered. He remain lethargic blood culture -Pseudomonas Spouse is concerned of allergy to meropenem because of mild erythema at the left fluid. She states patient has also been itching. Seen by infectious disease. Meropenem switched to IV ceftazidime. Patient to complete 7 days of antibiotics for Pseudomonas. Today is antibiotic day 5. Renal function got worse, nephrology consulted, patient underwent dialysis. Initially it was felt the patient may need to start chronic dialysis, which the patient and were discussing and considering hospice Patient's renal function improved slightly, nephrology felt that initiation of chronic dialysis was not immediately required. dialysis cath removed and dialysis discontinued. Serum creatinine is creeping up slowly. Status post multiple antibiotics. Patient's urine culture is positive most of the time. This is likely due to colonization. UA positive for yeast buds. Completed 3 days of IV Diflucan (). Yeast is likely a colonization. Patient has been having waxing waning mentation-confusion to unresponsiveness. Repeat CT chest:right pleural effusion seems to be reaccumulating, opacity noted on left lung, highly suspicious of pneumonia. s/p 1uPRBC for anemia, of chronic disease, reportedly had some hematuria per , which is resolved wound care for L heel patient chronically ill; poor prognosis. Patient has not responded to treatment and recommended hospice. Spouse is declining hospice at this time and would like to go home with home health. Code: DNR
--- NOTE | 2021-11-02 20:50 | P.PN ---
Date of Service: 11/02/21 Vital Signs Temp Pulse Resp BP Pulse Ox 97.2 F 64 19 171/73 H 98 11/02/21 19:51 11/02/21 19:51 11/02/21 19:51 11/02/21 19:51 11/02/21 19:51 Medications Acetaminophen (Acetaminophen 650mg/Rect Supp) 650 mg DE Q6HP PRN PRN Reason: TEMP > 100' F Atorvastatin Calcium (Atorvastatin 80 Mg Tab) 80 mg FT BEDTIME [facility] Last Admin: 11/01/21 22:05 Dose: 80 mg Documented by: Calcitriol (Calcitrol 0.25 Mcg Cap) 0.5 mcg PO DAILY [facility] Last Admin: 11/02/21 09:45 Dose: 0.5 mcg Documented by: Cholecalciferol (Vitamin D 5,000 Unit Cap) 5,000 unit PO DAILY [facility] Last Admin: 11/02/21 09:45 Dose: 5,000 unit Documented by: Diphenhydramine HCl (Diphenhydramine 50 Mg/Ml Vial) 12.5 mg IV Q6H PRN PRN Reason: ITCHING Last Admin: 11/02/21 00:47 Dose: 12.5 mg Documented by: Doxazosin Mesylate (Doxazosin 2 Mg Tab) 2 mg FT DAILY [facility] Last Admin: 11/02/21 10:20 Dose: 2 mg Documented by: Enteral Nutritional Formula (Nepro 1,000 Ml Bot) 360 ml FT ACHS [facility] Last Admin: 11/02/21 17:04 Dose: 360 ml Documented by: Epoetin Cody (Epoetin Cody 10,000 Unit/Ml Vial) 10,000 unit SQ M,W,F [facility] Last Admin: 11/01/21 17:00 Dose: 10,000 unit Documented by: Escitalopram Oxalate (Escitalopram 20 Mg Tab) 40 mg FT DAILY [facility] Last Admin: 11/02/21 09:45 Dose: 40 mg Documented by: Furosemide (Furosemide 40 Mg/4 Ml Vial) 40 mg IV BIDL [facility] Last Admin: 11/02/21 17:04 Dose: 40 mg Documented by: Gabapentin (Gabapentin 100 Mg Cap) 200 mg FT BID [facility] Last Admin: 11/02/21 09:45 Dose: 200 mg Documented by: Heparin Sodium (Porcine) (Heparin 5000 Unit/Ml 1 Ml Vial) 5,000 unit SQ Q8HR [facility] Last Admin: 10/23/21 01:00 Dose: Not Given Documented by: Heparin Sodium (Porcine) (Heparin 1,000 Unit/Ml Vial) 2,000 unit IV EVERY HD PRN PRN Reason: DIALYSIS Last Admin: 10/28/21 11:00 Dose: 2,000 unit Documented by: Hydralazine HCl (Hydralazine Hcl 10 Mg Tablet) 10 mg PO BID [facility] Last Admin: 11/02/21 10:21 Dose: 10 mg Documented by: Albumin Human (Albumin 25%) 50 mls @ 100 mls/hr IV EVERY HD [facility] Ceftazidime 2 gm/ Sodium (Chloride) 100 mls @ 200 mls/hr IV Q12HR [facility] Insulin Human Regular (Insulin -Regular Human 50 Unit/0.5 Ml Ml) 0 unit SQ [facility]; Protocol Last Admin: 11/02/21 16:17 Dose: Not Given Documented by: Mannitol (Mannitol 25% 12.5 Gm/50 Ml Vial) 12.5 gm IV EVERY HD PRN PRN Reason: Titrate to SBP (MUST DEFINE) Ondansetron HCl (Ondansetron 4 Mg/2 Ml Vial) 4 mg IV Q6HP PRN PRN Reason: NAUSEA / VOMITING Scopolamine HBr (Scopolamine Hydrobromide Patch) 1 pat TD Q3D@0900 [facility] Last Admin: 11/01/21 09:45 Dose: 1 pat Documented by: Sodium Chloride (Flush Normal Saline 10 Ml) 10 ml IV BID [facility] Last Admin: 11/02/21 09:45 Dose: 10 ml Documented by: Sucralfate (Sucralfate 1gm/10ml Ucup) 1 gm FT ACHS [facility] Last Admin: 11/02/21 17:04 Dose: 1 gm Documented by: Tamsulosin HCl (Tamsulosin 0.4 Mg Sr Cap) 0.4 mg PO DAILY [facility] Last Admin: 11/02/21 09:45 Dose: 0.4 mg Documented by: Trazodone HCl (Trazodone 50 Mg Tablet) 50 mg PO BEDTIME [facility] Last Admin: 11/01/21 22:04 Dose: 50 mg Documented by: Microbiology Results 10/22/21 08:25 Blood - Blood Aerobic Blood Culture - Final No growth in 5 days. 10/22/21 08:25 Blood - Blood Anaerobic Blood Culture - Final No growth in 5 days. 10/22/21 08:40 Blood - Blood Aerobic Blood Culture - Final No growth in 5 days. 10/22/21 08:40 Blood - Blood Anaerobic Blood Culture - Final No growth in 5 days. 10/22/21 09:59 Catheterized Urine [place] Count - Final >100,000 CFU/ML. 10/22/21 09:59 Catheterized Urine - Final Assessment/ Plan: Nephrology Waxing and waning mental status No dyspnea No chest pain Weakness and fatigue No acute events overnight Vitals, medications, blood work and imaging reviewed in the chart. General: In no apparent distress, Cooperative HEENT: Atraumatic Neck: Supple Respiratory: Diminished Cardiovascular: Regular rate/rhythm, Edema Gastrointestinal: Soft and benign, Non-distended Musculoskeletal: No clubbing, No contractures Integumentary: No rashes, No cyanosis Neurological: Normal speech Blood work reviewed in the chart. Imagings Data: EXAM DESCRIPTION: RAD - Chest Single View - 10/22/2021 9:10 am CLINICAL HISTORY: Cough;Congestion COMPARISON: Chest Single View dated 09/29/2021; Chest Pa And Lat (2 Views) dated 08/25/2021; Chest Single View dated 08/24/2021; Chest Single View dated 07/08/2021; Renal Biopsy\CT dated 09/08/2021 FINDINGS: Lines: None. Lungs: Decreased lung volumes on the right. Increased widespread airspace disease. Pleural: Bilateral pleural effusions. Cardiac: Cardiomegaly . Bones: No acute fractures. Sternotomy. Other: IMPRESSION: Worsening of widespread interstitial and airspace opacities that probably reflects edema though pneumonia difficult to entirely exclude radiographically. Bilateral pleural effusions. Conclusions/Impression: OSCAR vs Progressive CKD CKD IV with proteinuria HD initiated [id number]. Hold HD at this time. -No NSAIDs -Not a good candidate for PD -Patient's considering dialysis vs hospice Hypokalemia -Encourage nutrition -Replete potassium prn HypoPO4 -Replete PO4 prn HTN with CKD/ CHF -Monitor BP -HD with UF Diastolic CHF, A/C Pleural Effusion -Low sodium diet -HD with UF -Continue Lasix DM II with CKD DM Nephropathy -RISS Moderate malnutrition -Continue Nepro TF Anemia in chronic illness/ CKD -Retacrit MWF CKD MBD -Continue Vitamin D Toxic Metabolic Encephalopathy Uremia -Acute HD as ordered
[2021-11-02] MEDS ORDERED: CEFTAZIDIME 2 GM/VIAL IV SCH (21:00)
[2021-11-02] MEDS: ATORVASTATIN 80 MG TAB FT SCH ×2 (21:00→22:20)
[2021-11-02] MEDS: TRAZODONE 50 MG TABLET PO SCH ×2 (21:00→22:19)
[2021-11-02] MEDS: CEFTAZIDIME 2 GM in NA CHLORIDE 0.9% 100 ML IV SCH (22:22)
[2021-11-03 04:09] LABS: Potassium 3.7 mmol/L (3.5-5.1)
[2021-11-03 04:15] LABS: Absolute Lymphocytes (CBC) 0.8 K/uL (0.7-4.9); Hematocrit 29.1 % (39.6-49.0); Lymphocytes % 9.5 % (15.3-44.8); MPV 9.2 fL (7.6-11.3); RBC Red Blood Cell Count 3.98 M/uL (4.33-5.43)
[2021-11-03 05:11] LABS: Blood Morphology Comment NOT SEEN (NOT SEEN); Platelet Estimate ADEQ; Platelets, Giant MOD; White Blood Cell Scan OK (OK)
[2021-11-03] MEDS ORDERED: HYDRALAZINE HCL 20 MG/ML VIAL IV ONE (05:24)
[2021-11-03] MEDS: NEPRO 1,000 ML BOT FT SCH ×5 (07:30→19:59)
[2021-11-03] MEDS: SUCRALFATE 1GM/10ML UCUP FT SCH ×5 (07:30→19:57)
[2021-11-03] MEDS: INSULIN -REGULAR HUMAN 50 UNIT/0.5 ML ML SQ SCH ×4 (07:30→20:00)
[2021-11-03] MEDS: FUROSEMIDE 40 MG/4 ML VIAL IV SCH ×2 (09:00→17:00)
[2021-11-03] MEDS: GABAPENTIN 100 MG CAP FT SCH ×3 (09:00→19:56)
[2021-11-03] MEDS: CALCITROL 0.25 MCG CAP PO SCH ×2 (09:00)
[2021-11-03] MEDS: ESCITALOPRAM 20 MG TAB FT SCH ×2 (09:00)
[2021-11-03] MEDS: HYDRALAZINE HCL 10 MG TABLET PO SCH ×3 (09:00→19:57)
[2021-11-03] MEDS: CEFTAZIDIME 2 GM in NA CHLORIDE 0.9% 100 ML IV SCH ×2 (09:00→21:21)
[2021-11-03] MEDS: TAMSULOSIN 0.4 MG SR CAP PO SCH ×2 (09:00)
[2021-11-03] MEDS: DOXAZOSIN 2 MG TAB FT SCH ×2 (09:00)
[2021-11-03] MEDS: VITAMIN D 5,000 UNIT CAP PO SCH ×2 (09:00)
--- NOTE | 2021-11-03 10:59 | P.PN ---
Subjective Date of Service: 11/03/21 Chief Complaint: acute renal failure Patient is more awake and interactive. Nursing staff report patient got "clogged. Apparently his spouse manipulated and unclogged the PEG tube Physical Examination - Vital Signs Temperature: 97.2 F Blood Pressure: 148/65 Pulse: 73 Respirations: 19 Pulse Ox (%): 98 Assessment And Plan - Current Problems (Diagnosis) (1) Pleural effusion Current Visit: No Status: Acute (2) Acute worsening of stage 4 chronic kidney disease Current Visit: Yes Status: Acute (3) Metabolic encephalopathy Current Visit: Yes Status: Acute (4) Diabetes Current Visit: No Status: Acute Qualifiers: Diabetes mellitus type: type 2 Diabetes mellitus mcc insulin use: with mcc use Diabetes mellitus complication status: without complication Qualified Code(s): E11.9 - Type 2 diabetes mellitus without complications; Z79.4 - roasterman (current) use of insulin (5) Pneumonia Current Visit: No Status: Acute Qualifiers: Pneumonia type: due to unspecified organism Laterality: bilateral (6) Weakness generalized Current Visit: No Status: Acute (7) Anemia Onset Date: 11/05/16 Current Visit: No Status: Chronic - Plan Physical Exam General: Cachectic, awake, confused but interactive today. HEENT: Mucous membr. moist/pink, Sclerae nonicteric Neck: JVD not distended. Respiratory: Diminished (Bilateral), No crackles Cardiovascular: Regular rate/rhythm, Normal S1 S2, Edema (1+ bilateral lower extremity edema) Gastrointestinal: Soft and benign, Non-distended, No tenderness, PEG tube Musculoskeletal: No contractures, No tenderness Integumentary: Left heel decubitus ulcer Neurological: Lethargic, no focal motor deficits. Urogenital: Holcomb catheter Problem List Moderatelarge right pleural effusion, mild left pleural effusion, s/p R thoracostomy tube placement and subsequent removal Left lobar pneumonia Acute worsening of CKD 4 (diabetic nephropathy) Acute metabolic/toxic encephalopathy secondary to OSCAR and infection UTI, history of recurrent UTI; yeast Generalized weakness PEG tube feeding Anemia of chronic disease Large pleural effusion; Dr. Lara consulted, placed chest tube on 10/24 with ~1L out. Output improved. Discontinued 10/27 Patient has been more awake and interactive over the past few days blood culture -Pseudomonas Seen by infectious disease. Meropenem switched to IV ceftazidime due to spousal concern for allergy. Patient to complete 7 days of antibiotics for Pseudomonas. Today is antibiotic day 6. Renal function got worse, nephrology consulted, patient underwent dialysis. Initially it was felt the patient may need to start chronic dialysis. Patient's renal function improved slightly, nephrology felt that chronic dialysis was not immediately required. dialysis cath removed and dialysis discontinued. Serum creatinine is creeping up slowly. Status post multiple antibiotics. Patient's urine culture is positive most of the time. This is likely due to colonization. UA positive for yeast buds. Completed 3 days of IV Diflucan (). Yeast is likely a colonization. Patient has been having waxing waning mentation-confusion to unresponsiveness. Over the past few days he has been more awake and interactive. Repeat CT chest:right pleural effusion seems to be reaccumulating, opacity noted on left lung, highly suspicious of pneumonia. Patient is on antibiotics. s/p 1uPRBC for anemia, of chronic disease, reportedly had some hematuria per , which is resolved wound care for L heel patient chronically ill; poor prognosis. Hospice recommended. Spouse is declining hospice at this time and would like to go home with home health. PEG tube was clogged overnight. Dr. Lara consulted who was planning PEG tube replacement tomorrow morning. Patient's spouse manipulated with a PEG tube and got it unclogged. Code: DNR
--- NOTE | 2021-11-03 12:45 | P.PN ---
Subjective Date of Service: 11/03/21 Chief Complaint: acute renal failure Patient seen and examined at bedside, no acute events. Review of Systems 10-point ROS is otherwise unremarkable Physical Examination - Vital Signs Temperature: 97.2 F Blood Pressure: 148/65 Pulse: 73 Respirations: 19 Pulse Ox (%): 98 - Studies Active Medications Acetaminophen (Acetaminophen 650mg/Rect Supp) 650 mg [place] Q6HP PRN PRN Reason: TEMP > 100' F Atorvastatin Calcium (Atorvastatin 80 Mg Tab) 80 mg FT BEDTIME [facility] Last Admin: 11/02/21 21:00 Dose: Not Given Documented by: Calcitriol (Calcitrol 0.25 Mcg Cap) 0.5 mcg PO DAILY [facility] Last Admin: 11/03/21 09:00 Dose: 0.5 mcg Documented by: Cholecalciferol (Vitamin D 5,000 Unit Cap) 5,000 unit PO DAILY [facility] Last Admin: 11/03/21 09:00 Dose: 5,000 unit Documented by: Diphenhydramine HCl (Diphenhydramine 50 Mg/Ml Vial) 12.5 mg IV Q6H PRN PRN Reason: ITCHING Last Admin: 11/02/21 00:47 Dose: 12.5 mg Documented by: Doxazosin Mesylate (Doxazosin 2 Mg Tab) 2 mg FT DAILY [facility] Last Admin: 11/03/21 09:00 Dose: 2 mg Documented by: Enteral Nutritional Formula (Nepro 1,000 Ml Bot) 360 ml FT ACHS [facility] Last Admin: 11/03/21 11:30 Dose: 360 ml Documented by: Epoetin Cody (Epoetin Cody 10,000 Unit/Ml Vial) 10,000 unit SQ M,W,F [facility] Last Admin: 11/01/21 17:00 Dose: 10,000 unit Documented by: Escitalopram Oxalate (Escitalopram 20 Mg Tab) 40 mg FT DAILY [facility] Last Admin: 11/03/21 09:00 Dose: 40 mg Documented by: Furosemide (Furosemide 40 Mg/4 Ml Vial) 40 mg IV BIDL [facility] Last Admin: 11/03/21 09:00 Dose: 40 mg Documented by: Gabapentin (Gabapentin 100 Mg Cap) 200 mg FT BID [facility] Last Admin: 11/03/21 09:00 Dose: 200 mg Documented by: Heparin Sodium (Porcine) (Heparin 5000 Unit/Ml 1 Ml Vial) 5,000 unit SQ Q8HR [facility] Last Admin: 10/23/21 01:00 Dose: Not Given Documented by: Heparin Sodium (Porcine) (Heparin 1,000 Unit/Ml Vial) 2,000 unit IV EVERY HD PRN PRN Reason: DIALYSIS Last Admin: 10/28/21 11:00 Dose: 2,000 unit Documented by: Hydralazine HCl (Hydralazine Hcl 10 Mg Tablet) 10 mg PO BID [facility] Last Admin: 11/03/21 09:00 Dose: 10 mg Documented by: Albumin Human (Albumin 25%) 50 mls @ 100 mls/hr IV EVERY HD [facility] Ceftazidime 2 gm/ Sodium (Chloride) 100 mls @ 200 mls/hr IV Q12HR [facility] Last Admin: 11/03/21 09:00 Dose: 100 mls Documented by: Insulin Human Regular (Insulin -Regular Human 50 Unit/0.5 Ml Ml) 0 unit SQ [facility]; Protocol Last Admin: 11/03/21 12:18 Dose: 5 unit Documented by: Mannitol (Mannitol 25% 12.5 Gm/50 Ml Vial) 12.5 gm IV EVERY HD PRN PRN Reason: Titrate to SBP (MUST DEFINE) Ondansetron HCl (Ondansetron 4 Mg/2 Ml Vial) 4 mg IV Q6HP PRN PRN Reason: NAUSEA / VOMITING Scopolamine HBr (Scopolamine Hydrobromide Patch) 1 pat TD Q3D@0900 [facility] Last Admin: 11/01/21 09:45 Dose: 1 pat Documented by: Sodium Chloride (Flush Normal Saline 10 Ml) 10 ml IV BID [facility] Last Admin: 11/03/21 09:00 Dose: 10 ml Documented by: Sucralfate (Sucralfate 1gm/10ml Ucup) 1 gm FT ACHS [facility] Last Admin: 11/03/21 12:19 Dose: 1 gm Documented by: Tamsulosin HCl (Tamsulosin 0.4 Mg Sr Cap) 0.4 mg PO DAILY [facility] Last Admin: 11/03/21 09:00 Dose: 0.4 mg Documented by: Trazodone HCl (Trazodone 50 Mg Tablet) 50 mg PO BEDTIME [facility] Last Admin: 11/02/21 21:00 Dose: Not Given Documented by: Assessment And Plan - Plan Physical Exam: General: Cachectic, Confused HEENT: Atraumatic, Normocephalic Neck: Supple, 2+ carotid pulse no bruit Respiratory: Other (Bilateral crackles/rales, right lung sounds diminished) Cardiovascular: Normal pulses, Regular rate/rhythm Gastrointestinal: Other (PEG tube) Conclusions/Impression: Antibiotics: Ceftazidime: 11/02/-current Meropenem: Assessment/plan Gram-negative bacteremia Blood cultures obtained on 10/29 grew Pseudomonas aeruginosa Patient started on meropenem on 10/29, will switch to ceftazidime due to possible allergic reaction. Recommend treating for full 7-day course OSCAR Patient had nontunneled dialysis catheter placed on 10/22 with a few sessions of dialysis. Catheter was removed on 10/31. Family wishes to not pursue dialysis at this time. Bilateral pleural effusion right greater than left with possible left lower lobe pneumonia Patient had right thoracostomy tube placed on 10/24, and removed on 10/27 Continue current antibiotics UTI Patient has history of chronic urinary tract infections, likely colonized. Urine culture obtained on 10/31 grew mixed alla as well as budding yeast, patient was treated with 3-day course of oral Diflucan. Would recommend treating for for 14-day course, however it is likely colonized and does not need necessarily need to be treated. Anemia Continue to monitor H&H Prognosis poor Plan of care discussed with Dr. Ortega Thank you for consultation
[2021-11-03] MEDS: EPOETIN ALFA 10,000 UNIT/ML VIAL SQ SCH (17:00)
[2021-11-03] MEDS: TRAZODONE 50 MG TABLET PO SCH (19:56)
[2021-11-03] MEDS: ATORVASTATIN 80 MG TAB FT SCH (19:56)
[2021-11-03] MEDS: DIPHENHYDRAMINE 50 MG/ML VIAL IV PRN (20:04)
[2021-11-04 03:31] LABS: Hematocrit 28.9 % (39.6-49.0); Lymphocytes % 11.6 % (15.3-44.8); MPV 9.3 fL (7.6-11.3); RBC Red Blood Cell Count 3.98 M/uL (4.33-5.43)
[2021-11-04 04:16] LABS: Potassium 3.5 mmol/L (3.5-5.1)
[2021-11-04] MEDS: INSULIN -REGULAR HUMAN 50 UNIT/0.5 ML ML SQ SCH ×3 (07:30→16:22)
[2021-11-04] MEDS: NEPRO 1,000 ML BOT FT SCH ×3 (08:36→15:47)
[2021-11-04] MEDS: SUCRALFATE 1GM/10ML UCUP FT SCH ×3 (08:36→15:48)
[2021-11-04] MEDS: ESCITALOPRAM 20 MG TAB FT SCH (08:39)
[2021-11-04] MEDS: TAMSULOSIN 0.4 MG SR CAP PO SCH (08:39)
[2021-11-04] MEDS: DOXAZOSIN 2 MG TAB FT SCH (08:39)
[2021-11-04] MEDS: CALCITROL 0.25 MCG CAP PO SCH (08:39)
[2021-11-04] MEDS: GABAPENTIN 100 MG CAP FT SCH (08:40)
[2021-11-04] MEDS: VITAMIN D 5,000 UNIT CAP PO SCH (08:40)
[2021-11-04] MEDS: FUROSEMIDE 40 MG/4 ML VIAL IV SCH ×2 (08:40→17:00)
[2021-11-04] MEDS: SCOPOLAMINE HYDROBROMIDE PATCH TD SCH (08:42)
[2021-11-04] MEDS: HYDRALAZINE HCL 10 MG TABLET PO SCH (08:50)
[2021-11-04 08:56] VITALS: O2SAT 93
[2021-11-04] MEDS ORDERED: POTASSIUM CL SA 10 MEQ TAB PO ONE (09:00)
--- NOTE | 2021-11-04 09:47 | P.PN ---
Date of Service: 11/03/21 Vital Signs Temp Pulse Resp BP Pulse Ox 97.7 F 72 14 155/72 H 97 11/04/21 08:00 11/04/21 08:40 11/04/21 08:00 11/04/21 08:40 11/04/21 08:00 Medications Acetaminophen (Acetaminophen 650mg/Rect Supp) 650 mg ID Q6HP PRN PRN Reason: TEMP > 100' F Atorvastatin Calcium (Atorvastatin 80 Mg Tab) 80 mg FT BEDTIME [facility] Last Admin: 11/03/21 19:56 Dose: 80 mg Documented by: Calcitriol (Calcitrol 0.25 Mcg Cap) 0.5 mcg PO DAILY [facility] Last Admin: 11/04/21 08:39 Dose: 0.5 mcg Documented by: Cholecalciferol (Vitamin D 5,000 Unit Cap) 5,000 unit PO DAILY [facility] Last Admin: 11/04/21 08:40 Dose: 5,000 unit Documented by: Diphenhydramine HCl (Diphenhydramine 50 Mg/Ml Vial) 12.5 mg IV Q6H PRN PRN Reason: ITCHING Last Admin: 11/03/21 20:04 Dose: 12.5 mg Documented by: Doxazosin Mesylate (Doxazosin 2 Mg Tab) 2 mg FT DAILY [facility] Last Admin: 11/04/21 08:39 Dose: 2 mg Documented by: Enteral Nutritional Formula (Nepro 1,000 Ml Bot) 360 ml FT ACHS [facility] Last Admin: 11/04/21 08:36 Dose: 360 ml Documented by: Epoetin Cody (Epoetin Cody 10,000 Unit/Ml Vial) 10,000 unit SQ M,W,F [facility] Last Admin: 11/03/21 17:00 Dose: 10,000 unit Documented by: Escitalopram Oxalate (Escitalopram 20 Mg Tab) 40 mg FT DAILY [facility] Last Admin: 11/04/21 08:39 Dose: 40 mg Documented by: Furosemide (Furosemide 40 Mg/4 Ml Vial) 40 mg IV BIDL [facility] Last Admin: 11/04/21 08:40 Dose: 40 mg Documented by: Gabapentin (Gabapentin 100 Mg Cap) 200 mg FT BID [facility] Last Admin: 11/04/21 08:40 Dose: 200 mg Documented by: Heparin Sodium (Porcine) (Heparin 5000 Unit/Ml 1 Ml Vial) 5,000 unit SQ Q8HR [facility] Last Admin: 10/23/21 01:00 Dose: Not Given Documented by: Heparin Sodium (Porcine) (Heparin 1,000 Unit/Ml Vial) 2,000 unit IV EVERY HD PRN PRN Reason: DIALYSIS Last Admin: 10/28/21 11:00 Dose: 2,000 unit Documented by: Hydralazine HCl (Hydralazine Hcl 10 Mg Tablet) 10 mg PO BID [facility] Last Admin: 11/04/21 08:50 Dose: 10 mg Documented by: Albumin Human (Albumin 25%) 50 mls @ 100 mls/hr IV EVERY HD [facility] Ceftazidime 2 gm/ Sodium (Chloride) 100 mls @ 200 mls/hr IV Q12HR [facility] Last Admin: 11/03/21 21:21 Dose: 100 mls Documented by: Insulin Human Regular (Insulin -Regular Human 50 Unit/0.5 Ml Ml) 0 unit SQ [facility]; Protocol Last Admin: 11/04/21 07:30 Dose: Not Given Documented by: Mannitol (Mannitol 25% 12.5 Gm/50 Ml Vial) 12.5 gm IV EVERY HD PRN PRN Reason: Titrate to SBP (MUST DEFINE) Ondansetron HCl (Ondansetron 4 Mg/2 Ml Vial) 4 mg IV Q6HP PRN PRN Reason: NAUSEA / VOMITING Scopolamine HBr (Scopolamine Hydrobromide Patch) 1 pat TD Q3D@0900 [facility] Last Admin: 11/04/21 08:42 Dose: 1 pat Documented by: Sodium Chloride (Flush Normal Saline 10 Ml) 10 ml IV BID [facility] Last Admin: 11/04/21 08:42 Dose: 10 ml Documented by: Sucralfate (Sucralfate 1gm/10ml Ucup) 1 gm FT ACHS [facility] Last Admin: 11/04/21 08:36 Dose: 1 gm Documented by: Tamsulosin HCl (Tamsulosin 0.4 Mg Sr Cap) 0.4 mg PO DAILY [facility] Last Admin: 11/04/21 08:39 Dose: 0.4 mg Documented by: Trazodone HCl (Trazodone 50 Mg Tablet) 50 mg PO BEDTIME [facility] Last Admin: 11/03/21 19:56 Dose: 50 mg Documented by: Microbiology Results 10/22/21 08:25 Blood - Blood Aerobic Blood Culture - Final No growth in 5 days. 10/22/21 08:25 Blood - Blood Anaerobic Blood Culture - Final No growth in 5 days. 10/22/21 08:40 Blood - Blood Aerobic Blood Culture - Final No growth in 5 days. 10/22/21 08:40 Blood - Blood Anaerobic Blood Culture - Final No growth in 5 days. 10/22/21 09:59 Catheterized Urine [place] Count - Final >100,000 CFU/ML. 10/22/21 09:59 Catheterized Urine - Final Assessment/ Plan: Nephrology Improving mental status No dyspnea No chest pain Weakness and fatigue reports difficulty with the PEG, which may need replacement No acute events overnight Vitals, medications, blood work and imaging reviewed in the chart. General: In no apparent distress, Cooperative HEENT: Atraumatic Neck: Supple Respiratory: Diminished Cardiovascular: Regular rate/rhythm, Edema Gastrointestinal: Soft and benign, Non-distended Musculoskeletal: No clubbing, No contractures Integumentary: No rashes, No cyanosis Neurological: Normal speech Blood work reviewed in the chart. Imagings Data: EXAM DESCRIPTION: RAD - Chest Single View - 10/22/2021 9:10 am CLINICAL HISTORY: Cough;Congestion COMPARISON: Chest Single View dated 09/29/2021; Chest Pa And Lat (2 Views) dated 08/25/2021; Chest Single View dated 08/24/2021; Chest Single View dated 07/08/2021; Renal Biopsy\CT dated 09/08/2021 FINDINGS: Lines: None. Lungs: Decreased lung volumes on the right. Increased widespread airspace disease. Pleural: Bilateral pleural effusions. Cardiac: Cardiomegaly . Bones: No acute fractures. Sternotomy. Other: IMPRESSION: Worsening of widespread interstitial and airspace opacities that probably reflects edema though pneumonia difficult to entirely exclude radiographically. Bilateral pleural effusions. Conclusions/Impression: OSCAR vs Progressive CKD CKD IV with proteinuria HD initiated [id number]. Hold HD at this time. -No NSAIDs -Not a good candidate for PD -Patient's considering dialysis vs hospice Hypokalemia -Encourage nutrition -Replete potassium prn HypoPO4 -Replete PO4 prn HTN with CKD/ CHF -Monitor BP -HD with UF Diastolic CHF, A/C Pleural Effusion -Low sodium diet -HD with UF -Continue Lasix DM II with CKD DM Nephropathy -RISS Moderate malnutrition -Continue Nepro TF Anemia in chronic illness/ CKD -Retacrit MWF CKD MBD -Continue Vitamin D Toxic Metabolic Encephalopathy Uremia -HD prn
[2021-11-04] MEDS: CEFTAZIDIME 2 GM in NA CHLORIDE 0.9% 100 ML IV SCH ×2 (09:57→15:26)
--- NOTE | 2021-11-04 12:49 | P.DS ---
Admission Date: 10/22/21 Discharge Date: 11/04/21 Disposition: [place] HOME/HOME HEALTH CARE Discharge Condition: FAIR Reason for Admission: acute renal failure - Problems (1) Pleural effusion Current Visit: No Status: Acute (2) Acute worsening of stage 4 chronic kidney disease Current Visit: Yes Status: Acute (3) Metabolic encephalopathy Current Visit: Yes Status: Acute (4) Diabetes Current Visit: No Status: Acute Qualifiers: Diabetes mellitus type: type 2 Diabetes mellitus intermediate insulin use: with intermediate use Diabetes mellitus complication status: without complication Qualified Code(s): E11.9 - Type 2 diabetes mellitus without complications; 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 Spouse also report patient has been lethargic. He was recently discharged from [facility]. Patient was unresponsive during my examination in the ED. check x-ray demonstrated bilateral pleural effusion, large on the right. Blood work showed significantly elevated BUN. Creatinine is up to 2.92. Patient is also anemic with hemoglobin of 7.4. He was hospitalized for further management. Hospital Course: Problem List Moderatelarge right pleural effusion, mild left pleural effusion, s/p R thoracostomy tube placement and subsequent removal Left lobar pneumonia Acute worsening of CKD 4 (diabetic nephropathy) Acute metabolic/toxic encephalopathy secondary to OSCAR and infection UTI, history of recurrent UTI; yeast Generalized weakness PEG tube feeding Anemia of chronic disease Patient admitted and started on IV antibiotics. Also treated with lasix Large pleural effusion; Dr. Lara consulted, placed chest tube on 10/24 with ~1L out. Output improved. Discontinued 10/27 Patient has been more awake and interactive over the past few days Blood culture -Pseudomonas. Seen by infectious disease. Initially treated with meropenem and then switched to IV ceftazidime due to spousal concern for allergy. Patient completed 7 days of antibiotics for Pseudomonas. Renal function got worse, nephrology consulted, patient underwent dialysis. Initially it was felt the patient may need to start chronic dialysis. Patient's renal function improved slightly, nephrology felt that chronic dialysis was not immediately required. Dialysis cath removed and dialysis discontinued. Serum creatinine was somehow stable without hemodialysis. Status post multiple antibiotics. Patient's urine culture is positive most of the time. This is likely due to colonization. UA positive for yeast buds. Completed 3 days of IV Diflucan (). Yeast is likely a colonization. Patient has been having waxing waning mentation-confusion to unresponsiveness. Over the past few days he has been more awake and interactive. Repeat CT chest:right pleural effusion seems to be reaccumulating, opacity noted on left lung, highly suspicious of pneumonia. Patient treated with antibiotics as above. s/p 1uPRBC for anemia, of chronic disease, reportedly had some hematuria per , which is resolved Wound care done for for L heel ulcer. patient chronically ill; poor prognosis. Hospice recommended. Spouse is declining hospice at this time and would like to go home with home health. PEG tube was clogged at the point in time. Patient's spouse manipulated with a PEG tube and got it unclogged. His PEG tube is functioning okay. Vital Signs/Physical Exam: Temp Pulse Resp BP Pulse Ox 97.7 F 72 14 155/72 H 97 11/04/21 08:00 11/04/21 08:40 11/04/21 08:00 11/04/21 08:40 11/04/21 08:00 General: In no apparent distress, Cachectic, Other (Awake) HEENT: PERRLA, Mucous membr. moist/pink Neck: 2+ carotid pulse no bruit Respiratory: Diminished (Bilateral) Cardiovascular: Regular rate/rhythm, Normal S1 S2, Edema (Trace bilateral lower extremity edema) Gastrointestinal: Normal bowel sounds, Soft and benign, Non-distended, Other (PEG tube) Musculoskeletal: No swelling Neurological: Other (No focal motor deficit) Laboratory Data at Discharge: WBC 8.3 K/uL (4.3-10.9) 11/04/21 02:42 Hgb 9.4 g/dL (13.6-17.9) L 11/04/21 02:42 Hct 28.9 % (39.6-49.0) L 11/04/21 02:42 Plt Count 219 K/uL (152-406) 11/04/21 02:42 PT 13.3 SECONDS (9.5-12.5) H 10/22/21 15:48 INR 1.20 10/22/21 15:48 Sodium 138 mmol/L (136-145) 11/04/21 02:42 Potassium 3.5 mmol/L (3.5-5.1) 11/04/21 02:42 BUN 109 mg/dL (7-18) H 11/04/21 02:42 Creatinine 2.85 mg/dL (0.55-1.3) H 11/04/21 02:42 Glucose 111 mg/dL (74-106) H 11/04/21 02:42 Uric Acid 5.1 mg/dL (3.5-7.2) 10/31/21 05:19 Phosphorus 2.7 mg/dL (2.5-4.9) 10/31/21 05:19 Magnesium 2.9 mg/dL (1.8-2.4) H 10/31/21 05:19 Total Bilirubin 0.4 mg/dL (0.2-1.0) 11/02/21 05:56 AST 141 U/L (15-37) H 11/02/21 05:56 ALT 171 U/L (12-78) H 11/02/21 05:56 Alkaline Phosphatase 92 U/L (45-117) 11/02/21 05:56 Cholesterol Cancelled 10/24/21 14:45 Home Medications: Aspirin [Adult Aspirin Regimen] 81 mg PO DAILY 06/04/20 Atorvastatin Calcium [Lipitor] 80 mg FT BEDTIME 06/04/20 Clopidogrel Bisulfate [Plavix*] 75 mg FT DAILY 07/16/20 Escitalopram [Lexapro*] 40 mg FT DAILY 07/16/20 Ascorbic Acid [Vitamin C] 1,000 mg FT BID 12/16/20 Tamsulosin [Flomax*] 0.4 mg PO DAILY 06/10/21 Benzonatate 1 cap PO TID PRN 08/25/21 Ferrous Sulfate 1 tab PO BID 09/30/21 Furosemide [Lasix] 1 tab PO BID 09/30/21 Hydralazine [Apresoline*] 1 tab PO BID 09/30/21 Ondansetron HCl 1 tab PO Q8H PRN 09/30/21 Codeine Phosphate/Guaifenesin [Virtussin AC 10-100 mg/5 ml Lq] 118 ml PO DAILY PRN 10/22/21 Doxazosin [Cardura*] 2 mg FT DAILY 10/22/21 Ipratropium/Albuterol Sulfate [Iprat-Albut 0.5-3(2.5) mg/3 ml] 0.5 mg IH Q4H PRN 10/22/21 Pantoprazole Sodium [Protonix] 40 mg PO BID PRN 10/22/21 Promethazine Suppos [Phenergan -Suppos*] 25 mg RC Q6H PRN 10/22/21 Promethazine/Dextrometh Syr [Phenergan Dm Oral Syrup*] 5 mg PO Q6H PRN 10/22/21 Amlodipine [Norvasc*] 5 mg FT DAILY #30 tab 11/04/21 Calcitrol [Rocaltrol*] 0.5 mcg PO DAILY #30 cap 11/04/21 Cholecalciferol (Vitamin D3) [Vitamin D 5,000 IU Cap*] 5,000 unit PO DAILY #30 cap 11/04/21 Gabapentin [Neurontin*] 200 mg FT BID #30 cap 11/04/21 Nepro 360 ml FT ACHS #90 bot 11/04/21 Scopolamine Hydrobromide [Transderm-Scop*] 1 pat TD Q3D@0900 #10 patch 11/04/21 Sucralfate [Carafate*] 10 ml FT ACHS #90 ucup 11/04/21 Trazodone [Desyrel*] 50 mg PO BEDTIME #30 tablet 11/04/21 New Medications: Sucralfate [Carafate*] 10 ml FT ACHS #90 ucup Trazodone [Desyrel*] 50 mg PO BEDTIME #30 tablet Nepro 360 ml FT ACHS #90 bot Gabapentin [Neurontin*] 200 mg FT BID #30 cap Amlodipine [Norvasc*] 5 mg FT DAILY #30 tab Calcitrol [Rocaltrol*] 0.5 mcg PO DAILY #30 cap Scopolamine Hydrobromide [Transderm-Scop*] 1 pat TD Q3D@0900 #10 patch Cholecalciferol (Vitamin D3) [Vitamin D 5,000 IU Cap*] 5,000 unit PO DAILY #30 cap Activity: Nepro feeding Followup: NONE,NONE [Primary Care Provider] - Time spent managing pt's care (in minutes): 40
[2021-11-04] MEDS: DIPHENHYDRAMINE 50 MG/ML VIAL IV PRN (12:56)
[2021-11-04 17:32] VITALS: BP 172/81; TEMP 98.3
== END 2021-11-04 17:32 | disposition home health service (06) | DRG 291 ==
LOC: ER 07:52 → ERHOLD 11:21 → 3RD-ICU 13:56 → 2ND 10-25 14:11
PROVIDERS: ADMIT Internal Medicine; ATTEND Internal Medicine
PROC: 06HY33Z Insertion of Infusion Device into Lower Vein, Percutaneous Approach (ICD-10-PCS; principal; 2021-10-22)
PROC: 5A1D70Z Performance of Urinary Filtration, Intermittent, Less than 6 Hours Per Day (ICD-10-PCS; 2021-10-22)
PROC: 5A1D70Z Performance of Urinary Filtration, Intermittent, Less than 6 Hours Per Day (ICD-10-PCS; 2021-10-23)
PROC: 0W9930Z Drainage of Right Pleural Cavity with Drainage Device, Percutaneous Approach (ICD-10-PCS; 2021-10-24)
PROC: 5A1D70Z Performance of Urinary Filtration, Intermittent, Less than 6 Hours Per Day (ICD-10-PCS; 2021-10-24)
PROC: 5A1D70Z Performance of Urinary Filtration, Intermittent, Less than 6 Hours Per Day (ICD-10-PCS; 2021-10-26)
PROC: 0WP9X0Z Removal of Drainage Device from Right Pleural Cavity, External Approach (ICD-10-PCS; 2021-10-27)
PROC: 5A1D70Z Performance of Urinary Filtration, Intermittent, Less than 6 Hours Per Day (ICD-10-PCS; 2021-10-28)
DX: I13.2 Hypertensive heart and chronic kidney disease with heart failure and with stage 5 chronic kidney disease, or end stage renal disease (principal); L89.614 Pressure ulcer of right heel, stage 4; J18.9 Pneumonia, unspecified organism; N17.1 Acute kidney failure with acute cortical necrosis; I50.33 Acute on chronic diastolic (congestive) heart failure; G92.8 Other toxic encephalopathy; N18.6 End stage renal disease; J90 Pleural effusion, not elsewhere classified; E44.0 Moderate protein-calorie malnutrition; R64 Cachexia; N39.0 Urinary tract infection, site not specified; R78.81 Bacteremia; B96.5 Pseudomonas (aeruginosa) (mallei) (pseudomallei) as the cause of diseases classified elsewhere; E11.22 Type 2 diabetes mellitus with diabetic chronic kidney disease; N18.30 Chronic kidney disease, stage 3 unspecified; I25.10 Atherosclerotic heart disease of native coronary artery without angina pectoris; E78.5 Hyperlipidemia, unspecified; J44.9 Chronic obstructive pulmonary disease, unspecified; F17.200 Nicotine dependence, unspecified, uncomplicated; G20 Parkinson's disease; E87.6 Hypokalemia; Z66 Do not resuscitate; D63.1 Anemia in chronic kidney disease; E83.39 Other disorders of phosphorus metabolism; Z20.822 Contact with and (suspected) exposure to COVID-19; Z79.4 Long term (current) use of insulin; Z95.1 Presence of aortocoronary bypass graft; Z68.21 Body mass index [BMI] 21.0-21.9, adult; Z99.2 Dependence on renal dialysis
CPT/HCPCS: 0240U; 36415; 36430; 71045; 71250; 80048; 80053; 80069; 80076; 80202; 81003; 81015; 82945; 82947; 83605; 83615; 83735; 83880; 84100; 84145; 84157; 84311; 84443; 84484; 84550; 85014; 85018; 85025; 85027; 85610; 86704; 86706; 86803; 86850; 86900; 86901; 87015; 87040; 87077; 87086; 87088; 87102; 87116; 87186; 87205; 87206; 87340; 88108; 88305; 90935; 92610; 93005; 96374; 96375; 97110; 97162; 97530; 99251; 99284; J0360; J0692; J0713; J1200; J1450; J1642; J1644; J1720; J1815; J1940; J2185; J2250; J2543; J3370; J3480; J3490; J7030; J7040; P9016